=== PATIENT | female | born 1960 | race Caucasian/White ===

== ENCOUNTER 2018-07-04 22:59 | Observation (INO) | payer OTHER ==
[2018-07-04 23:36] LABS: Absolute Lymphocytes (CBC) 2.4 K/uL (0.7-4.9); Absolute Monocytes 0.6 K/uL (0.1-1.3); Absolute Neutrophil 10.8 K/uL (1.8-8.0); Basophils % 0.3 % (0-1.3); Eosinophils % 0.6 % (0-4.4); Hematocrit 37.2 % (36.0-45.0); Lymphocytes % 16.9 % (15.3-44.8); MPV 8.3 fL (7.6-11.3); Monocytes % 4.6 % (3.3-12.3); RBC Red Blood Cell Count 4.21 M/uL (3.86-4.86)
[2018-07-04 23:38] LABS: Protime INR 0.94
[2018-07-04] MEDS ORDERED: NA CHLORIDE 0.9% 1,000 ML ONE (23:41)
[2018-07-04] MEDS ORDERED: ONDANSETRON 4 MG/2 ML VIAL ONE (23:41)
[2018-07-04 23:55] LABS: ALT/SGPT 24 U/L (12-78); AST/SGOT 16 U/L (15-37); Albumin 4.1 g/dL (3.4-5.0); Alkaline Phosphatase 79 U/L (45-117); BUN Blood Urea Nitrogen 29 mg/dL (7-18); Bicarbonate 27 mmol/L (21-32); Bilirubin Direct < 0.1 mg/dL (0-0.2); Bilirubin Total 0.2 mg/dL (0.2-1.0); Glucose Level 179 mg/dL (74-106); Lipase 106 U/L (73-393); Magnesium 1.7 mg/dL (1.8-2.4); NT PRO-BNP 229 pg/mL (<125); Potassium 3.6 mmol/L (3.5-5.1); Protein, Total 7.2 g/dL (6.4-8.2); Sodium Level 140 mmol/L (136-145); Troponin (Emerg Dept Use Only) < 0.02 ng/mL (0.0-0.045)
[2018-07-05 00:11] LABS: Urine Blood NEGATIVE (NEG); Urine Glucose TRACE (NEG); Urine Protein 1+ (NEG); Urine Specific Gravity 1.015 (1.005-1.030)
[2018-07-05] MEDS ORDERED: ONDANSETRON 4 MG/2 ML VIAL ONE (00:43)
[2018-07-05] MEDS ORDERED: MORPHINE 4 MG/ML SYR ONE (00:43)
[2018-07-05] MEDS ORDERED: CEFTRIAXONE/SWI 1gm 1 GM/10 ML SYR ONE (00:43)
[2018-07-05] MEDS ORDERED: MAGNESIUM SULFATE 1 gm IVPB 1 GM/100 ML BAG IV ONE (01:08)
[2018-07-05] MEDS ORDERED: Levofloxacin500mg IV 500 MG/100 ML BAG IV ONE (01:22)
--- NOTE | 2018-07-05 02:22 | ER ---
Nurse's Notes [facility] Name: Jaimie Amanda Age: 57 yrs Sex: Female : 1960 Arrival Date: 07/04/2018 Time: 23:08 Bed 6 Private MD: Diagnosis: Abdominal tenderness;Acute tubulo-interstitial nephritis-pyelonepritis, multifocal;Hypomagnesemia;Elevated white blood cell count Presentation: 07/04 23:00 Presenting complaint: Patient states: that she has been having lower pelvic pain that fc started approx 2 months ago. Today the pain got worse and then she started to have nausea and vomiting. Also having pain with urination, is light headed and dizzy. Transition of care: patient was not received from another setting of care. Onset of symptoms was April 2018. Risk Assessment: Do you want to hurt yourself or someone else? Patient reports no desire to harm self or others. Initial Sepsis Screen: Does the patient meet any 2 criteria? RR > 20 per min. Yes Does the patient have a suspected source of infection? No. Patient's initial sepsis screen is negative. Care prior to arrival: Medication(s) given: Phenergan, 12.5 mg, Glucose check: 164. 23:00 Method Of Arrival: EMS: [facility] 23:00 Acuity: ZHEN 3 fc Historical: - Allergies: 23:14 Nitroglycerin; fc - Home Meds: 23:34 trazodone 100 mg Oral tab 1 tab nightly [Active]; oxcarbazepine 600 mg oral tab 1 am fc and 2 pm [Active]; metformin 500 mg Oral tab 1 tab 2 times per day [Active]; naltrexone 50 mg oral tab 1 tab once daily [Active]; losartan-hydrochlorothiazide 100-25 mg oral tab 1 tab once daily [Active]; paroxetine HCl 40 mg Oral tab 1 tab once daily [Active]; oxybutynin chloride 5 mg Oral tab 1 tab 2 times per day [Active]; omeprazole 40 mg Oral cpDR 1 cap once daily [Active]; Linzess 290 mcg oral cap 1 cap once daily [Active]; levothyroxine 137 mcg tab 1 tab once daily [Active]; liothyronine 5 mcg Oral tab 1 tab once daily [Active]; hydroxyzine HCl 50 mg Oral tab 1 tab bid prn [Active]; - PMHx: 23:14 Depression; Anxiety; Hypothyroidism; Hypertension; fc 23:35 ETOH Abuse; Seizures; Diabetes - NIDDM; fc - PSHx: 23:14 Thyroidectomy; Hernia repair; breast implants; fc - Immunization history:: Last tetanus immunization: up to date. - Social history:: Smoking status: Patient uses tobacco products, smokes one pack cigarettes per day. Patient/guardian denies using alcohol, street drugs. - Ebola Screening: : Patient negative for fever greater than or equal to 101.5 degrees Fahrenheit, and additional compatible Ebola Virus Disease symptoms Patient denies exposure to infectious person Patient denies travel to an Ebola-affected area in the 21 days before illness onset. Screenin:00 Abuse screen: Denies threats or abuse. Nutritional screening: No deficits noted. fc Tuberculosis screening: No symptoms or risk factors identified. Fall Risk Fall in past 12 months (25 points). Secondary diagnosis (15 points) impaired mobility, IV access (20 points). Ambulatory Aid- Crutches/Cane/Walker (15 pts). Gait- Weak (10 pts.). Mental Status- Overestimates/Forgets Limitations (15 pts.). Total Rubio Fall Scale indicates High Risk Score (45 or more points). Fall prevention measures have been instituted. Side Rails Up X 2 Placed Close to Nursing Station Frequent Obs/Assessments Occuring As available patient and family educated on Fall Prevention Program and Strategies. Assessment: 23:41 General: Appears in no apparent distress. uncomfortable, Behavior is cooperative, mg2 restless. Pain: Complains of pain in abdomen Pain does not radiate. Pain currently is 6 out of 10 on a pain scale. Quality of pain is described as aching, Pain began gradually, 2-3 days ago. Is intermittent. Neuro: Level of Consciousness is awake, alert, obeys commands, Oriented to person, place, time, situation. Cardiovascular: Capillary refill < 3 seconds Patient's skin is warm and dry. Respiratory: Airway is patent Respiratory effort is even, unlabored, Respiratory pattern is regular, symmetrical. GI: Abdomen is round non-distended, Reports lower abdominal pain, nausea. : Urine is see urine dip Reports pain in bilateral pelvic area. EENT: No signs and/or symptoms were reported regarding the EENT system. Derm: Skin is intact, is healthy with good turgor, Skin is pink, warm \T\ dry. normal. Musculoskeletal: Circulation, motion, and sensation intact. Capillary refill < 3 seconds. 07/05 01:26 Reassessment: patient sent to ct scan via wheelchair. mg2 04:05 Reassessment: Patient appears in no apparent distress at this time. Patient is alert, rr5 oriented x 3, equal unlabored respirations, skin warm/dry/pink. transferred to medical surgical floor, awake conscious and coherent not in distress. no complaints made. Vital Signs: 07/04 23:00 BP 164 / 89; Pulse 82; Resp 22; Temp 98.3(O); Pulse Ox 98% on R/A; Weight 77.11 kg (R); fc Height 5 ft. 7 in. (170.18 cm) (R); Pain 8/10; 07/05 01:05 BP 182 / 87; Pulse 80; Resp 18; Pulse Ox 100% on R/A; Pain 2/10; mg2 03:30 BP 166 / 70; Pulse 80; Resp 18; Pulse Ox 100% on R/A; mg2 04:00 BP 161 / 66; Pulse 85; Resp 17; Pulse Ox 99% ; rr5 07/04 23:00 Body Mass Index 26.63 (77.11 kg, 170.18 cm) fc ED Course: 07/04 23:00 Arm band placed on Patient placed in an exam room, on a stretcher. fc 23:00 Patient has correct armband on for positive identification. Bed in low position. Call fc light in reach. Side rails up X2. Pulse ox on. NIBP on. 23:00 Maintain EMS IV. Dressing intact. Good blood return noted. Site clean \T\ dry. Gauge \T\ fc site: 20 gauge to right a/c. 23:08 Patient arrived in ED. fc 23:10 Diego Ramirez MD is Attending Physician. hannah 23:11 Triage completed. fc 23:34 EKG done, by ED staff, reviewed by Diego Ramirez MD. ag4 23:37 Hermann Andrade, CATY is Primary Nurse. mg2 23:43 No provider procedures requiring assistance completed. mg2 07/05 00:06 X-ray completed. Portable x-ray completed in exam room. Patient tolerated procedure kw well. 00:10 XRAY Chest (1 view) In Process Unspecified. EDMS 01:11 Radiology exam delayed due to Patient has not finished oral contrast due to nausea. Dr. jonh Ramirez has asked me to proceed with the exam. 01:50 CT Abd/Pelvis - W/Contrast In Process Unspecified. EDMS 02:20 Joseph Gustafson MD is Hospitalizing Provider. hannah 03:29 Patient admitted, IV remains in place. mg2 Administered Medications: 07/04 23:37 Drug: NS 0.9% 1000 ml Route: IV; Rate: 1 bolus; Site: right antecubital; mg2 07/05 01:24 Follow up: Response: No adverse reaction; Marked relief of symptoms; IV Status: mg2 Completed infusion 07/04 23:40 Drug: Zofran 4 mg Route: IVP; Site: right antecubital; mg2 07/05 01:24 Follow up: Response: No adverse reaction; Marked relief of symptoms mg2 00:37 Drug: morphine 4 mg Route: IVP; Site: right antecubital; mg2 01:25 Follow up: Response: No adverse reaction; Marked relief of symptoms mg2 03:27 Follow up: Response: No adverse reaction; Marked relief of symptoms mg2 00:38 Drug: Rocephin - (cefTRIAXone) 1 grams Route: IVPB; Infused Over: 30 mins; Site: right mg2 antecubital; 01:25 Follow up: Response: No adverse reaction; IV Status: Completed infusion mg2 03:27 Follow up: Response: No adverse reaction; IV Status: Completed infusion mg2 00:38 Drug: Zofran 4 mg Route: IVP; Site: right antecubital; mg2 01:25 Follow up: Response: No adverse reaction; Marked relief of symptoms mg2 03:27 Follow up: Response: No adverse reaction; Marked relief of symptoms mg2 01:04 Drug: Magnesium Sulfate 1 grams Route: IVPB; Infused Over: 1 hrs; Site: right mg2 antecubital; 03:26 Follow up: Response: No adverse reaction; IV Status: Completed infusion mg2 01:22 Drug: levofloxacin 500 mg Volume: 100 ml; Route: IVPB; Infused Over: 60 mins; Site: mg2 right antecubital; 03:26 Follow up: Response: No adverse reaction; IV Status: Completed infusion mg2 Outcome: 02:21 Decision to Hospitalize by Provider. hannah 03:30 Admitted to Med/surg family with patient, via wheelchair, room 210, with chart, Report mg2 called to CATY Tellez 03:30 Condition: stable 03:30 Instructed on the need for admit, Demonstrated understanding of instructions. 04:09 Patient left the ED. rr5 Signatures: Dispatcher [employer] EDDiego Angela MD MD cha Chretien, Felicia, RN RN fc Blessing Kang Kimberly kw1 Hermann Andrade RN RN mg2 Ez Mcnamara RN RN rr5 Yony Grimes 4
--- NOTE | 2018-07-05 02:22 | EDPHYS ---
Physician Documentation [facility] Name: Jaimie Amanda Age: 57 yrs Sex: Female : 1960 Arrival Date: 07/04/2018 Time: 23:08 Bed 6 Private MD: ED Physician Diego Ramirez HPI: 07/04 23:13 This 57 yrs old Female presents to ER via EMS with complaints of Pelvic Pain, hannah Nausea/Vomiting. 23:13 The patient presents to the emergency department with nausea, vomiting. hannah Historical: - Allergies: 23:14 Nitroglycerin; fc - Home Meds: 23:34 trazodone 100 mg Oral tab 1 tab nightly [Active]; oxcarbazepine 600 mg oral tab 1 am fc and 2 pm [Active]; metformin 500 mg Oral tab 1 tab 2 times per day [Active]; naltrexone 50 mg oral tab 1 tab once daily [Active]; losartan-hydrochlorothiazide 100-25 mg oral tab 1 tab once daily [Active]; paroxetine HCl 40 mg Oral tab 1 tab once daily [Active]; oxybutynin chloride 5 mg Oral tab 1 tab 2 times per day [Active]; omeprazole 40 mg Oral cpDR 1 cap once daily [Active]; Linzess 290 mcg oral cap 1 cap once daily [Active]; levothyroxine 137 mcg tab 1 tab once daily [Active]; liothyronine 5 mcg Oral tab 1 tab once daily [Active]; hydroxyzine HCl 50 mg Oral tab 1 tab bid prn [Active]; - PMHx: 23:14 Depression; Anxiety; Hypothyroidism; Hypertension; fc 23:35 ETOH Abuse; Seizures; Diabetes - NIDDM; fc - PSHx: 23:14 Thyroidectomy; Hernia repair; breast implants; fc - Immunization history:: Last tetanus immunization: up to date. - Social history:: Smoking status: Patient uses tobacco products, smokes one pack cigarettes per day. Patient/guardian denies using alcohol, street drugs. - Ebola Screening: : Patient negative for fever greater than or equal to 101.5 degrees Fahrenheit, and additional compatible Ebola Virus Disease symptoms Patient denies exposure to infectious person Patient denies travel to an Ebola-affected area in the 21 days before illness onset. ROS: 23:46 Constitutional: Negative for fever, chills, and weight loss, Eyes: Negative for injury, hannah pain, redness, and discharge, ENT: Negative for injury, pain, and discharge, Neck: Negative for injury, pain, and swelling, Cardiovascular: Negative for chest pain, palpitations, and edema, Respiratory: Negative for shortness of breath, cough, wheezing, and pleuritic chest pain, Back: Negative for injury and pain, : Negative for injury, bleeding, discharge, and swelling, MS/Extremity: Negative for injury and deformity, Skin: Negative for injury, rash, and discoloration, Neuro: Negative for headache, weakness, numbness, tingling, and seizure, Psych: Negative for depression, anxiety, suicide ideation, homicidal ideation, and hallucinations, Allergy/Immunology: Negative for hives, rash, and allergies, Endocrine: Negative for neck swelling, polydipsia, polyuria, polyphagia, and marked weight changes, Hematologic/Lymphatic: Negative for swollen nodes, abnormal bleeding, and unusual bruising. 23:46 Abdomen/GI: Positive for abdominal pain, nausea and vomiting, nausea, vomiting, abdominal cramps, of the right lower quadrant and left lower quadrant. Exam: 23:46 Constitutional: This is a well developed, well nourished patient who is awake, alert, hannah and in no acute distress. Head/Face: Normocephalic, atraumatic. Eyes: Pupils equal round and reactive to light, extra-ocular motions intact. Lids and lashes normal. Conjunctiva and sclera are non-icteric and not injected. Cornea within normal limits. Periorbital areas with no swelling, redness, or edema. ENT: Nares patent. No nasal discharge, no septal abnormalities noted. Tympanic membranes are normal and external auditory canals are clear. Oropharynx with no redness, swelling, or masses, exudates, or evidence of obstruction, uvula midline. Mucous membranes moist. Neck: Trachea midline, no thyromegaly or masses palpated, and no cervical lymphadenopathy. Supple, full range of motion without nuchal rigidity, or vertebral point tenderness. No Meningismus. Chest/axilla: Normal chest wall appearance and motion. Nontender with no deformity. No lesions are appreciated. Cardiovascular: Regular rate and rhythm with a normal S1 and S2. No gallops, murmurs, or rubs. Normal PMI, no JVD. No pulse deficits. Respiratory: Lungs have equal breath sounds bilaterally, clear to auscultation and percussion. No rales, rhonchi or wheezes noted. No increased work of breathing, no retractions or nasal flaring. Back: No spinal tenderness. No costovertebral tenderness. Full range of motion. Female : Normal external genitalia. Skin: Warm, dry with normal turgor. Normal color with no rashes, no lesions, and no evidence of cellulitis. MS/ Extremity: Pulses equal, no cyanosis. Neurovascular intact. Full, normal range of motion. Neuro: Awake and alert, GCS 15, oriented to person, place, time, and situation. Cranial nerves II-XII grossly intact. Motor strength 5/5 in all extremities. Sensory grossly intact. Cerebellar exam normal. Normal gait. Psych: Awake, alert, with orientation to person, place and time. Behavior, mood, and affect are within normal limits. 23:46 Abdomen/GI: Inspection: abdomen appears normal, Bowel sounds: normal, Palpation: abdomen is soft and non-tender, Liver: no appreciated palpable abnormalities, Hernia: not appreciated. Vital Signs: 23:00 BP 164 / 89; Pulse 82; Resp 22; Temp 98.3(O); Pulse Ox 98% on R/A; Weight 77.11 kg (R); fc Height 5 ft. 7 in. (170.18 cm) (R); Pain 8/10; 07/05 01:05 BP 182 / 87; Pulse 80; Resp 18; Pulse Ox 100% on R/A; Pain 2/10; mg2 03:30 BP 166 / 70; Pulse 80; Resp 18; Pulse Ox 100% on R/A; mg2 04:00 BP 161 / 66; Pulse 85; Resp 17; Pulse Ox 99% ; rr5 07/04 23:00 Body Mass Index 26.63 (77.11 kg, 170.18 cm) fc MDM: 07/04 23:10 Patient medically screened. [facility] 23:48 Data reviewed: vital signs, nurses notes, lab test result(s), EKG, radiologic studies, [facility] CT scan, plain films. 07/04 23:13 Order name: Basic Metabolic Panel; Complete Time: 00:51 [facility] 07/04 23:13 Order name: CBC with Diff; Complete Time: 23:42 [facility] 07/04 23:13 Order name: LFT's; Complete Time: 00:51 [facility] 07/04 23:13 Order name: Magnesium; Complete Time: 00:51 hannah 07/04 23:13 Order name: NT PRO-BNP; Complete Time: 00:51 hannah 07/04 23:13 Order name: PT-INR; Complete Time: 23:42 hannah 07/04 23:13 Order name: Troponin (emerg Dept Use Only); Complete Time: 00:51 hannah 07/04 23:13 Order name: Lipase; Complete Time: 00:51 [facility] 07/04 23:13 Order name: Urine Culture [facility] 07/04 23:40 Order name: Urine Dipstick--Ancillary (enter results); Complete Time: 00:51 ar5 07/04 23:40 Order name: Urine --Ancillary (enter results); Complete Time: 00:51 [facility] 07/05 02:37 Order name: CBC with Automated Diff EDMS 07/05 02:37 Order name: CBC with Automated Diff EDMS 07/05 02:37 Order name: Comprehensive Metabolic Panel [facility] 07/04 23:13 Order name: XRAY Chest (1 view) [facility] 07/04 23:13 Order name: EKG; Complete Time: 23:14 hannah 07/04 23:13 Order name: Cardiac monitoring; Complete Time: 23:35 hannah 07/04 23:13 Order name: EKG - Nurse/Tech; Complete Time: 23:35 hannah 07/04 23:13 Order name: IV Saline Lock; Complete Time: 23:35 hannah 07/04 23:13 Order name: CT Abd/Pelvis - W/Contrast [facility] 07/05 02:37 Order name: CONS Pharmacy Consult [facility] 07/05 02:37 Order name: Regular [facility] 07/05 02:37 Order name: Comprehensive Metabolic Panel [facility] 07/04 23:13 Order name: Labs collected and sent; Complete Time: 23:36 hannah 07/04 23:13 Order name: O2 Per Protocol; Complete Time: 23:36 hannah 07/04 23:13 Order name: O2 Sat Monitoring; Complete Time: 23:36 hannah 07/04 23:13 Order name: Urine Dipstick-Ancillary (obtain specimen); Complete Time: 23:36 hannah Administered Medications: 23:37 Drug: NS 0.9% 1000 ml Route: IV; Rate: 1 bolus; Site: right antecubital; mg2 07/05 01:24 Follow up: Response: No adverse reaction; Marked relief of symptoms; IV Status: mg2 Completed infusion 07/04 23:40 Drug: Zofran 4 mg Route: IVP; Site: right antecubital; mg2 07/05 01:24 Follow up: Response: No adverse reaction; Marked relief of symptoms mg2 00:37 Drug: morphine 4 mg Route: IVP; Site: right antecubital; mg2 01:25 Follow up: Response: No adverse reaction; Marked relief of symptoms mg2 03:27 Follow up: Response: No adverse reaction; Marked relief of symptoms mg2 00:38 Drug: Rocephin - (cefTRIAXone) 1 grams Route: IVPB; Infused Over: 30 mins; Site: right mg2 antecubital; 01:25 Follow up: Response: No adverse reaction; IV Status: Completed infusion mg2 03:27 Follow up: Response: No adverse reaction; IV Status: Completed infusion mg2 00:38 Drug: Zofran 4 mg Route: IVP; Site: right antecubital; mg2 01:25 Follow up: Response: No adverse reaction; Marked relief of symptoms mg2 03:27 Follow up: Response: No adverse reaction; Marked relief of symptoms mg2 01:04 Drug: Magnesium Sulfate 1 grams Route: IVPB; Infused Over: 1 hrs; Site: right mg2 antecubital; 03:26 Follow up: Response: No adverse reaction; IV Status: Completed infusion mg2 01:22 Drug: levofloxacin 500 mg Volume: 100 ml; Route: IVPB; Infused Over: 60 mins; Site: mg2 right antecubital; 03:26 Follow up: Response: No adverse reaction; IV Status: Completed infusion mg2 Disposition: 07/05/18 02:21 Hospitalization ordered by Joseph Gustafson for Inpatient Admission. Preliminary diagnosis are Abdominal tenderness, Acute tubulo-interstitial nephritis - pyelonepritis, multifocal, Hypomagnesemia, Elevated white blood cell count. - Bed requested for Telemetry/MedSurg (Inpatient). - Status is Inpatient Admission. rr5 - Condition is Stable. - Problem is new. - Symptoms have improved. UTI on Admission? Yes Signatures: Dispatcher [employer] EDMS Rosemarie Donaldson RN RN mw Anderson, Corey, MD MD cha Chretien, Felicia, RN RN Hermann Andrade RN RN [facility] Mcnamara, Ez, RN RN rr5 Corrections: (The following items were deleted from the chart) 03:12 02:21 Hospitalization Ordered by Joseph Gustafson MD for Inpatient Admission. Preliminary mw diagnosis is Abdominal tenderness; Acute tubulo-interstitial nephritis - pyelonepritis, multifocal; Hypomagnesemia; Elevated white blood cell count. Bed requested for Telemetry/MedSurg (Inpatient). Status is Inpatient Admission. Condition is Stable. Problem is new. Symptoms have improved. UTI on Admission? Yes. [facility] 04:09 03:12 07/05/2018 02:21 Hospitalization Ordered by Joseph Gustafson MD for Inpatient rr5 Admission. Preliminary diagnosis is Abdominal tenderness; Acute tubulo-interstitial nephritis - pyelonepritis, multifocal; Hypomagnesemia; Elevated white blood cell count. Bed requested for Telemetry/MedSurg (Inpatient). Status is Inpatient Admission. Condition is Stable. Problem is new. Symptoms have improved. UTI on Admission? Yes. mw
[2018-07-05] MEDS ORDERED: ACETAMINOPHEN 500 MG TAB PO PRN (02:34)
[2018-07-05] MEDS: NA CHLORIDE 0.9% 1,000 ML IV SCH ×3 (04:24→22:28)
[2018-07-05] MEDS: MORPHINE 4 MG/ML SYR IV PRN ×4 (05:54→22:28)
[2018-07-05] MEDS ORDERED: CEFTRIAXONE 1 GM/NS 50 ML 1 GM/50 ML BAG IV SCH (06:00)
[2018-07-05] MEDS: ONDANSETRON 4 MG/2 ML VIAL IV PRN ×2 (06:40→21:05)
--- NOTE | 2018-07-05 07:05 | EKG ---
Test Date: 2018-07-04 Test Time: 23:30:08 Transit Planning Manager: [id number] MEASUREMENT RESULTS: Intervals: Rate: 73 TN: 182 QRSD: 90 QT: 420 QTc: 462 [place]: P: 51 TN: 182 QRS: 95 T: 42 INTERPRETIVE STATEMENTS: Normal sinus rhythm Rightward axis Borderline ECG Compared to ECG 11/20/2016 10:06:06 Right-axis deviation now present Electronically Signed On 07-05-18 07:04:33 CDT by [place]
[2018-07-05] MEDS ORDERED: hydrOXYzine HCl 25 MG TAB PO PRN (07:16)
--- NOTE | 2018-07-05 07:43 | P.HP ---
Certification for Inpatient Patient admitted to: Observation With expected LOS: <2 Midnights Patient will require the following post-hospital care: None Practitioner: I am a practitioner with admitting privileges, knowledge of patient current condition, hospital course, and medical plan of care. Services: Services provided to patient in accordance with Admission requirements found in Title 42 Section 412.3 of the Code of Federal Regulations Patient History Date of Service: 07/05/18 Reason for admission: Acute pyelonephritis History of Present Illness: Patient is a 57yo who was admitted to the hospital with left flank tenderness. Patient has been having pain for the last few weeks. Pain has not been getting any better. She also states that her abdomen is distended. Patient came into the ER for further evaluation. In the emergency room she had a CT scan performed. The CT scan revealed multifocal pyelonephritis of the superior pole of the left kidney. Patient be admitted to the hospital for IV antibiotic therapy. Will Consult urology get their opinion as well. At this time because her labs are fairly stable will get with case management and see if her clinical condition mandate say she is an inpatient. I will see her again better over the next 24-48 hr. I do feel she will need more than 2 days to really resolve her significant pyelonephritis. Patient does have pre renal azotemia. She also has a leukocytosis. Will continue to follow her over the next 24 hrs. Allergies nitroglycerin Adverse Reaction (Verified 07/05/18 06:27) severe hypotension Home Medications: Clonidine HCl [Catapres*] 0.2 mg PO BID 07/05/18 Fenofibrate,Micronized [Fenofibrate] 130 mg PO DAILY 07/05/18 Hydroxyzine HCl [Atarax] 10 mg PO BID PRN 07/05/18 Levothyroxine Sodium 137 mcg PO DAILY 07/05/18 Linaclotide [Linzess] 290 mcg PO DAILY 07/05/18 Liothyronine Sodium [Cytomel] 5 mcg PO DAILY 07/05/18 Losartan/Hydrochlorothiazide [Losartan-Hctz 100-25 mg Tab] 1 tab PO DAILY Metformin ER [Glucophage ER] 500 mg PO BID 07/05/18 Naltrexone 50mg 50 mg PO DAILY 07/05/18 OXcarbazepine [Oxcarbazepine] 2 tab PO BEDTIME 07/05/18 OXcarbazepine [Oxcarbazepine] 600 mg PO DAILY 07/05/18 Omeprazole [Prilosec] 40 mg PO DAILY 07/05/18 Ondansetron [Zofran] 4 mg PO TID 07/05/18 Oxybutynin Chloride [Ditropan] 5 mg PO BID 07/05/18 PARoxetine HCl [Paroxetine HCl] 40 mg PO DAILY 07/05/18 Trazodone HCl 100 mg PO BEDTIME 07/05/18 risperiDONE [Risperdal 1 mg tab] 1 mg PO BID 07/05/18 - Past Medical/Surgical History Has patient received pneumonia vaccine in the past: No Diabetic: No -: Hepatitis -: Anxiety -: HTN -: No Thyroid -: Alcoholic induce seizures -: Thyroid removed -: Plastic surgery breast -: hernia repair - Family History Mother Medical History: Hypertension, Diabetes, Cancer Notes: Thyroid, Knee replacement Father Medical History: Heart disease, Hypertension, Diabetes - Social History Smoking Status: Heavy Tobacco smoker (>10 cigarettes/day) Alcohol use: No CD- Drugs: No Caffeine use: Yes Place of Residence: Home Review of Systems 10-point ROS is otherwise unremarkable Physical Examination - Vital Signs Temperature: 98.2 F Blood Pressure: 180/81 Pulse: 69 Respirations: 18 Pulse Ox (%): 95 - Physical Exam General: Alert, In no apparent distress, Oriented x3 HEENT: Atraumatic, PERRLA, Mucous membr. moist/pink, EOMI, Sclerae nonicteric Neck: Supple, 2+ carotid pulse no bruit, No LAD, Without JVD or thyroid abnormality Respiratory: Clear to auscultation bilaterally, Normal air movement Cardiovascular: Regular rate/rhythm, Normal S1 S2, No murmurs Gastrointestinal: Normal bowel sounds, Soft and benign, Non-distended, No tenderness Musculoskeletal: No clubbing, No swelling, No tenderness Integumentary: No rashes Neurological: Normal gait, Normal speech, Normal strength at 5/5 x4 extr, Normal tone, Sensation intact, Cranial nerves 3-12 intact, Normal affect Lymphatics: No axilla or inguinal lymphadenopathy - Studies Laboratory Data (last 24 hrs) 07/04/18 23:20: PT 11.1, INR 0.94 07/04/18 23:20: WBC 14.0 H, Hgb 12.5, Hct 37.2, Plt Count 362 07/04/18 23:20: Sodium 140, Potassium 3.6, BUN 29 H, Creatinine 0.88, Glucose 179 H, Magnesium 1.7 L, Total Bilirubin 0.2, AST 16, ALT 24, Alkaline Phosphatase 79, Lipase 106 Assessment & Plan - Problems (Diagnosis) (1) Pyelonephritis, acute Current Visit: Yes Status: Acute (2) Leukocytosis Current Visit: Yes Status: Acute (3) Prerenal azotemia Current Visit: Yes Status: Acute (4) Chest pain Onset Date: 11/21/16 Current Visit: No Status: Acute Qualifiers: Ischemic chest pain type: unspecified angina pectoris type (5) Anxiety Onset Date: 11/21/16 Current Visit: No Status: Chronic (6) Depressed affect Onset Date: 11/21/16 Current Visit: No Status: Chronic (7) Hypertension Onset Date: 11/21/16 Current Visit: No Status: Chronic Qualifiers: Hypertension type: essential hypertension Qualified Code(s): I10 - Essential (primary) hypertension - Plan Plan: 1. IV hydration 2. IV antibiotics 3. Pain control 4. Urology consultation 5. Await microbiology results 6. Monitor labs closely 7. GI and DVT prophylaxis Discharge Plan: Home Plan to discharge in: Greater than 2 days - Advance Directives Does patient have a Living Will: No Does patient have a Durable POA for Healthcare: No - Code Status/Comfort Care Code Status Assessed: Yes Code Status: Full Code Critical Care: No Time Spent Managing PTS Care (In Minutes): 45
[2018-07-05] MEDS: cloNIDine HCl 0.1 MG TAB PO SCH ×2 (08:01→21:01)
--- NOTE | 2018-07-05 08:16 | RAD REPORT ---
EXAM DESCRIPTION: RAD - Chest Single View - 07/05/2018 12:09 am CLINICAL HISTORY: Cough;Abdominal distention Chest pain. COMPARISON: Chest Single View dated 11/20/2016 FINDINGS: Portable technique limits examination quality. The lungs are grossly clear. The heart is normal in size. No displaced fractures. IMPRESSION: No acute intrathoracic process suspected.
[2018-07-05] MEDS: PARoxetine HCl 10 MG TAB PO SCH (08:53)
[2018-07-05] MEDS: OXYBUTYNIN CHLORIDE 5 MG TAB PO SCH ×2 (08:53→21:01)
[2018-07-05] MEDS: LOSARTAN POTASSIUM 50 MG TABLET PO SCH (08:53)
[2018-07-05] MEDS: RISPERIDONE 1 MG TABLET PO SCH ×2 (08:53→21:01)
[2018-07-05] MEDS ORDERED: ONDANSETRON 4 MG (ODT) TAB PO SCH (09:00)
[2018-07-05] MEDS ORDERED: HOME MED 1 EA UNK (Oxcarbazepine [Oxcarbazepine] 600 MG) PO SCH (09:00)
[2018-07-05] MEDS ORDERED: METFORMIN ER 500 MG TAB PO SCH (09:00)
[2018-07-05] MEDS: FENOFIBRATE MICRONIZED 130 MG PO SCH (09:00)
--- NOTE | 2018-07-05 10:17 | RAD REPORT ---
EXAM DESCRIPTION: Abdomen and Pelvis With Intravenous Contrast CLINICAL HISTORY: The patient is 57 years old and is Female; ABD PAIN TECHNIQUE: Axial computed tomography images of the abdomen and pelvis with intravenous contrast. S agittal and coronal reformatted images were created and reviewed. This CT exam was performed using one or more of the following dose reduction techniques: automated exposure control, adjustment of t he mA and/or kV according to patient size, and/or use of iterative reconstruction technique. COMPARISON: CT of the abdomen and pelvis June 30, 2018. FINDINGS: LUNG BASES: Minimal dependent densities in the lung bases are present. MEDIASTINUM: A small hiatal hernia is present. ABDOMEN: LIVER: 1 cm low attenuating lesion within the left hepatic lobe is present and suggestive of a c yst. GALLBLADDER AND BILE DUCTS: No calcified stones. No ductal dilation. PANCREAS: No ductal dilation. No mass. SPLEEN: Unremarkable. ADRENALS: Unremarkable. No mass. KIDNEYS AND URETERS: Few subtle areas of wedge-shaped low-attenuation within the upper pole the left kidney are present. The right kidney enhances normally. No hydronephrosis. STOMACH AND BOWEL: Oral contrast distends the stomach. Oral contrast is noted throughout majorit y the small bowel which is normal in caliber. A moderate amount of stool is present throughout the co nixon. There is no mucosal thickening or evidence of bowel obstruction. PELVIS: APPENDIX: The appendix is normal in caliber without surrounding inflammation. BLADDER: Unremarkable. No mass. REPRODUCTIVE: Unremarkable as visualized. ABDOMEN and PELVIS: INTRAPERITONEAL SPACE: Unremarkable. No free air. No significant fluid collection. BONES/JOINTS: No acute fracture. SOFT TISSUES: The soft tissues are normal. VASCULATURE: Unremarkable. No abdominal aortic aneurysm. LYMPH NODES: Unremarkable. No enlarged lymph nodes. IMPRESSION: Findings suggestive of multifocal pyelonephritis involving the upper pole the left kidne y. Given the appearance, recommend follow-up to resolution to exclude underlying pathologic process. Electronically signed by: Nuvia Bloom MD 07/05/2018 1:56 AM CDT Due to temporary technical issues with the PACS/Fluency reporting system, reports are being signed by the in house radiologist as a courtesy to ensure prompt reporting. The interpreting radiologist is f ully responsible for the content of the report.
[2018-07-05] MEDS: hydroCHLOROthiazide 25 MG TAB PO SCH (11:06)
[2018-07-05] MEDS ORDERED: ONDANSETRON 4 MG (ODT) TAB PO PRN (14:00)
--- NOTE | 2018-07-05 16:02 | P.PN ---
Subjective Date of Service: 07/05/18 Primary Care Provider: none Chief Complaint: Acute pyelonephritis Subjective: Other (Abdominal pain noted) Physical Examination - Vital Signs Temperature: 98.7 F Blood Pressure: 113/55 Pulse: 58 Respirations: 18 Pulse Ox (%): 92 - Physical Exam General: Alert, In no apparent distress, Oriented x3, Cooperative HEENT: Atraumatic Neck: Supple Respiratory: Clear to auscultation bilaterally, Normal air movement Cardiovascular: Normal pulses, Regular rate/rhythm Gastrointestinal: Normal bowel sounds, Soft and benign, Non-distended, No masses , No rebound, No guarding, Tenderness (Mild left flank pain) Musculoskeletal: No erythema, No tenderness, No warmth Integumentary: No tenderness/swelling, No erythema, No warmth, No cyanosis Neurological: Normal speech, Normal strength at 5/5 x4 extr, Normal tone - Studies Laboratory Data (last 24 hrs) 07/04/18 23:20: PT 11.1, INR 0.94 07/04/18 23:20: WBC 14.0 H, Hgb 12.5, Hct 37.2, Plt Count 362 07/04/18 23:20: Sodium 140, Potassium 3.6, BUN 29 H, Creatinine 0.88, Glucose 179 H, Magnesium 1.7 L, Total Bilirubin 0.2, AST 16, ALT 24, Alkaline Phosphatase 79, Lipase 106 Medications List Reviewed: Yes Assessment & Plan Discharge Plan: Home Plan to discharge in: 48 Hours Physician Review Additional Text: Impression: Multifocal left pyelonephritis with dehydration Hypertension Depression with anxiety Hypothyroidism Plan: Multifocal left pyelonephritis with dehydration: Continue IV antibiotic therapy. Will provide medication for pain. Blood and urine cultures obtained. Will provide DVT prophylaxis. Anticipate discharge in the next 24-48 hr with improvement. Urology consulted. Will discuss with urology later. Hypertension: Restart home medication. Will monitor and adjust appropriately Depression with anxiety: Restart home medication. Hypothyroidism: Restart home medication. Time Spent Managing Pts Care (In Minutes): 55
[2018-07-05] MEDS: ENOXAPARIN 40 MG/0.4 ML SQ SCH (17:01)
[2018-07-05] MEDS: METFORMIN ER 500 MG TAB PO SCH (17:01)
--- NOTE | 2018-07-05 19:22 | CON ---
History Of Present Illness: This is a pleasant 57-year-old female. She has been sick for about a few months now and multiple diagnois of UTI and treatment with antibiotics, but apparently is not responding well, now she comes in with a multifocal left upper pole pyelonephritis. She has some leukocytosis, prerenal azotemia, history of chest pain, anxiety, depression, and hypertension. For the last couple of years, she has been having UTIs. Her CT scan did not show any obstruction or any stones. It is a garden-variety pyelonephritis that will need to be treated for 14-21 days of IV antibiotics. Also suspect she may have a resistant bug, possible need meropenem. Allergies: TO NITROGLYCERIN CAUSES SEVERE HYPOTENSION MORE LIKE A SIDE EFFECT. Home Medications: Clonidine, fenofibrate, Atarax, levothyroxine, Linzess, losartan, hydrochlorothiazide, metformin, naltrexone, __, Zofran, oxybutynin 5 mg b.i.d., paroxetine 40 mg p.o. daily, trazodone 100 mg p.o. at bedtime, risperidone 1 mg p.o. b.i.d. Past Medical History And Surgical History: Hepatitis, anxiety, hypertension, alcoholic-induced seizures, thyroidectomy, _surgery, hernia repair. Family History: Hypertension, diabetes, cancer, thyroid knee replacement. Father has heart disease, hypertension, diabetes. Social History: Heavy smoker, greater than 10 cigarettes per day. Alcohol use , none. Drug use and caffeine use, yes. Resides at home. Review of Systems: Ten point review of system as mentioned above. Physical Examination: Vital Signs: Temperature 98.7, pulse 58, respirations 18, blood pressure , sats 92%. Pain scale 6/10. HEENT: Atraumatic and normocephalic. Neck: Supple. Respiratory: Clear bilaterally. Cardiovascular: S1 and S2. Gastrointestinal: Soft, no bowel sounds. Skin: No rashes. Neurologic: Alert and oriented x3. Sensory and motor function roughly intact. Laboratory Studies: Reviewed. White count 14.0, H and H 12 and 37, platelets 362. Chem-7; sodium 140, potassium 3.6, BUN 29, creatinine 0.88, glucose 179. Assessment: Left pyelonephritis, multifocal left upper pole. The patient had been struggling with urinary tract infections over the last 2 to 4 months, now with leukocytosis and some prerenal azotemia, continue IV antibiotics. She is currently on Rocephin. Awaiting cultures. I would not be surprised if this is an extended-spectrum beta-lactamases or something resistant like that. Continue to observe the patient, watch the culture and sensitivity. Thank you very much. ÓSCAR Voice ID: [id number] Report ID: [id number] ROSANGELA
[2018-07-05] MEDS: TRAZODONE 50 MG TABLET PO SCH (21:00)
[2018-07-06] MEDS: CEFTRIAXONE/SWI 1gm 1 GM/10 ML SYR IV SCH (05:14)
[2018-07-06] MEDS: LEVOTHYROXINE SOD 0.112 MG TAB PO SCH (05:14)
[2018-07-06] MEDS: PANTOPRAZOLE 40MG TABLET PO SCH (05:15)
[2018-07-06] MEDS: LIOTHYRONINE SOD 5 MCG TAB PO SCH (05:15)
[2018-07-06] MEDS: LEVOTHYROXINE SOD 0.025 MG TAB PO SCH (05:15)
[2018-07-06] MEDS: MORPHINE 4 MG/ML SYR IV PRN ×3 (05:50→20:39)
[2018-07-06 05:52] LABS: Absolute Lymphocytes (CBC) 3.2 K/uL (0.7-4.9); Absolute Monocytes 0.5 K/uL (0.1-1.3); Absolute Neutrophil 3.3 K/uL (1.8-8.0); Basophils % 0.2 % (0-1.3); Eosinophils % 1.7 % (0-4.4); Hematocrit 33.6 % (36.0-45.0); Lymphocytes % 44.8 % (15.3-44.8); MPV 7.5 fL (7.6-11.3); Monocytes % 7.1 % (3.3-12.3); RBC Red Blood Cell Count 3.78 M/uL (3.86-4.86)
[2018-07-06 06:12] LABS: ALT/SGPT 21 U/L (12-78); AST/SGOT 11 U/L (15-37); Albumin 3.3 g/dL (3.4-5.0); Alkaline Phosphatase 56 U/L (45-117); BUN Blood Urea Nitrogen 18 mg/dL (7-18); Bicarbonate 28 mmol/L (21-32); Bilirubin Total 0.2 mg/dL (0.2-1.0); Glucose Level 101 mg/dL (74-106); Potassium 4.2 mmol/L (3.5-5.1); Protein, Total 6.1 g/dL (6.4-8.2); Sodium Level 142 mmol/L (136-145)
[2018-07-06 06:56] LABS: Platelet Estimate ADEQ
[2018-07-06 06:57] LABS: Blood Morphology Comment NOT SEEN (NOT SEEN)
[2018-07-06] MEDS: FENOFIBRATE MICRONIZED 130 MG PO SCH (08:19)
[2018-07-06] MEDS: ONDANSETRON 4 MG/2 ML VIAL IV PRN (08:30)
[2018-07-06] MEDS: cloNIDine HCl 0.1 MG TAB PO SCH ×2 (08:32→20:32)
[2018-07-06] MEDS: LOSARTAN POTASSIUM 50 MG TABLET PO SCH (08:32)
[2018-07-06] MEDS: NA CHLORIDE 0.9% 1,000 ML IV SCH (08:32)
[2018-07-06] MEDS: METFORMIN ER 500 MG TAB PO SCH ×2 (08:32→16:48)
[2018-07-06] MEDS: OXYBUTYNIN CHLORIDE 5 MG TAB PO SCH ×2 (08:32→20:33)
[2018-07-06] MEDS: hydroCHLOROthiazide 25 MG TAB PO SCH (08:33)
[2018-07-06] MEDS: OXCARBAZEPINE 600 MG PO SCH (08:34)
[2018-07-06] MEDS: RISPERIDONE 1 MG TABLET PO SCH ×2 (08:34→20:33)
[2018-07-06] MEDS: PARoxetine HCl 10 MG TAB PO SCH (08:34)
[2018-07-06] MEDS: TRAMADOL HCL 50 MG TAB PO PRN ×2 (10:12→16:48)
--- NOTE | 2018-07-06 12:24 | P.PN ---
Subjective Date of Service: 07/06/18 Primary Care Provider: none Chief Complaint: Acute pyelonephritis Subjective: Improving Physical Examination - Vital Signs Temperature: 99.1 F Blood Pressure: 186/74 Pulse: 50 Respirations: 16 Pulse Ox (%): 96 - Physical Exam General: Alert, In no apparent distress, Oriented x3, Cooperative HEENT: Atraumatic Neck: Supple Respiratory: Clear to auscultation bilaterally, Normal air movement Cardiovascular: Normal pulses, Regular rate/rhythm Gastrointestinal: Normal bowel sounds, Soft and benign, Non-distended, Tenderness (Mild pain to the left flank) - Studies Medications List Reviewed: Yes Assessment & Plan Discharge Plan: Home Plan to discharge in: 24 Hours Physician Review Additional Text: Impression: Multifocal left pyelonephritis with dehydration Hypertension Depression with anxiety Hypothyroidism Plan: Multifocal left pyelonephritis with dehydration: Continue IV antibiotic therapy. Await urine culture results. This will likely finalized tomorrow. Encourage ambulation. Will discuss with urology. Likely discharge in the next 24 hr. Hypertension: Continue with home medication. Will monitor and adjust appropriately Depression with anxiety: Continue with home medication. Hypothyroidism: Continue home medication. Time Spent Managing Pts Care (In Minutes): 55
[2018-07-06] MEDS: NACHLORIDE 0.45% 1,000 ML IV SCH (13:21)
[2018-07-06] MEDS: ENOXAPARIN 40 MG/0.4 ML SQ SCH (16:48)
--- NOTE | 2018-07-06 18:37 | PN ---
Subjective: Ms. Amanda states she is feeling better. Objective: She has low-grade temperature 99.1, pulse rate 50, respirations 16, BP 186/74, sats 96%. Cultures are still pending. Plan should be finalized tomorrow. Check culture, it is important to know the sensitivity of this drug since she may be a resistant drug possible ESBL. So we are watching this closely. Assessment: Acute pyelonephritis. Plan: Antibiotics 14-21 days. JERRY/TRAVIS Voice ID: [id number] Report ID: [id number] MTDD
[2018-07-06] MEDS: TRAZODONE 50 MG TABLET PO SCH (20:32)
[2018-07-07] MEDS: NACHLORIDE 0.45% 1,000 ML IV SCH (01:06)
[2018-07-07] MEDS: CEFTRIAXONE/SWI 1gm 1 GM/10 ML SYR IV SCH (05:00)
[2018-07-07] MEDS: PANTOPRAZOLE 40MG TABLET PO SCH (05:38)
[2018-07-07] MEDS: LIOTHYRONINE SOD 5 MCG TAB PO SCH (05:38)
[2018-07-07] MEDS: LEVOTHYROXINE SOD 0.112 MG TAB PO SCH (05:38)
[2018-07-07] MEDS: LEVOTHYROXINE SOD 0.025 MG TAB PO SCH (05:38)
[2018-07-07 06:08] LABS: Absolute Lymphocytes (CBC) 3.4 K/uL (0.7-4.9); Absolute Monocytes 0.6 K/uL (0.1-1.3); Absolute Neutrophil 4.1 K/uL (1.8-8.0); Basophils % 0.2 % (0-1.3); Eosinophils % 1.4 % (0-4.4); Lymphocytes % 41.3 % (15.3-44.8); MPV 7.6 fL (7.6-11.3); Monocytes % 6.9 % (3.3-12.3); RBC Red Blood Cell Count 3.97 M/uL (3.86-4.86)
[2018-07-07 06:20] LABS: BUN Blood Urea Nitrogen 16 mg/dL (7-18); Bicarbonate 29 mmol/L (21-32); Glucose Level 102 mg/dL (74-106); Magnesium 1.8 mg/dL (1.8-2.4); Potassium 3.9 mmol/L (3.5-5.1); Sodium Level 137 mmol/L (136-145)
[2018-07-07] MEDS: FENOFIBRATE MICRONIZED 130 MG PO SCH (08:21)
[2018-07-07] MEDS: OXCARBAZEPINE 600 MG PO SCH (08:27)
[2018-07-07] MEDS: PARoxetine HCl 10 MG TAB PO SCH (08:28)
[2018-07-07] MEDS: hydroCHLOROthiazide 25 MG TAB PO SCH (08:28)
[2018-07-07] MEDS: OXYBUTYNIN CHLORIDE 5 MG TAB PO SCH (08:29)
[2018-07-07] MEDS: METFORMIN ER 500 MG TAB PO SCH (08:29)
[2018-07-07] MEDS: cloNIDine HCl 0.1 MG TAB PO SCH (08:29)
[2018-07-07] MEDS: LOSARTAN POTASSIUM 50 MG TABLET PO SCH (08:29)
[2018-07-07] MEDS: RISPERIDONE 1 MG TABLET PO SCH (08:30)
[2018-07-07] MEDS: TRAMADOL HCL 50 MG TAB PO PRN (08:35)
--- NOTE | 2018-07-07 09:59 | P.DS ---
Admission Date: 07/05/18 Discharge Date: 07/07/18 Primary Care Provider: none Disposition: ROUTINE DISCHARGE Discharge Condition: GOOD Reason for Admission: Acute pyelonephritis Consultations: Urology-Dr. Fernandes Procedures: CT scan: IMPRESSION: Findings suggestive of multifocal pyelonephritis involving the upper pole the left kidney. Given the appearance, recommend follow-up to resolution to exclude underlying pathologic process Medical problem list: Multifocal left pyelonephritis with dehydration Hypertension Depression with anxiety Hypothyroidism Diabetes mellitus type 2 Hyperlipidemia Brief History of Present Illness: 57-year-old female presented to emergency room with left flank pain. Patient found to have left multifocal pyelonephritis. Patient was admitted for treatment. Hospital Course: Patient presented with multifocal left pyelonephritis. Patient seen and evaluated by urology. Patient was treated with IV antibiotic therapy. Patient improved. At discharge she is without any significant abdominal pain, nausea and vomiting. UTI prevention addressed in detail. Urine culture shows normal marisol. At discharge she will continue with antibiotic-Bactrim DS 1 pill twice daily for 10 days for broad-spectrum control. Recommend to follow up with urology in 1-2 weeks to follow up this hospitalization and continue her care. Urology or her PCP will need to follow up on final results of urine culture within the next 24-48 hr. Patient with hypertension. This has remained stable. At discharge she will continue with her medication-clonidine 0.2 mg 1 pill twice daily, losartan 100 mg 1 pill daily, and hydrochlorothiazide 25 mg daily. Further adjustment can be done by her PCP. Patient with diabetes type 2. This remained stable during her stay. Patient will continue with metformin 500 mg 1 pill twice daily. Further adjustment can be done by her PCP. Patient with hypothyroidism. At at discharge she will continue with her medication levothyroxine 137 mcg daily and Cytomel 5 mg daily. Patient with depression with anxiety. Patient will continue with her medications including Paxil 40 mg daily, Risperdal 1 mg 1 pill twice daily and trazodone 100 mg at bedtime. Further adjustment can be done by her PCP or psychiatrist. Patient with hyperlipidemia. Patient will continue with fenofibrate 130 mg daily. Patient with underlying urinary incontinence. Patient will continue with Ditropan one pill twice daily. Recommend to follow up with urology to further address and monitor. Vital Signs/Physical Exam: Temp Pulse Resp BP Pulse Ox 98 F 74 17 165/74 H 95 07/07/18 07:25 07/07/18 08:29 07/07/18 07:25 07/07/18 08:29 07/07/18 07:25 General: Alert, In no apparent distress, Oriented x3, Cooperative HEENT: Atraumatic Neck: Supple Respiratory: Clear to auscultation bilaterally, Normal air movement Cardiovascular: Normal pulses, Regular rate/rhythm Gastrointestinal: Normal bowel sounds, Soft and benign, Non-distended, No tenderness, No masses, No rebound, No guarding Musculoskeletal: No erythema, No tenderness, No warmth Integumentary: No tenderness/swelling, No erythema, No warmth, No cyanosis Neurological: Normal speech, Normal strength at 5/5 x4 extr, Normal tone, Normal affect Laboratory Data at Discharge: WBC 8.2 K/uL (4.3-10.9) 07/07/18 05:34 Hgb 12.3 g/dL (12.0-15.0) 07/07/18 05:34 Hct 35.0 % (36.0-45.0) L 07/07/18 05:34 Plt Count 296 K/uL (152-406) 07/07/18 05:34 PT 11.1 SECONDS (9.5-12.5) 07/04/18 23:20 INR 0.94 07/04/18 23:20 Sodium 137 mmol/L (136-145) 07/07/18 03:54 Potassium 3.9 mmol/L (3.5-5.1) 07/07/18 03:54 BUN 16 mg/dL (7-18) 07/07/18 03:54 Creatinine 0.65 mg/dL (0.55-1.3) 07/07/18 03:54 Glucose 102 mg/dL (74-106) 07/07/18 03:54 Magnesium 1.8 mg/dL (1.8-2.4) 07/07/18 03:54 Total Bilirubin 0.2 mg/dL (0.2-1.0) 07/06/18 05:24 AST 11 U/L (15-37) L 07/06/18 05:24 ALT 21 U/L (12-78) 07/06/18 05:24 Alkaline Phosphatase 56 U/L (45-117) 07/06/18 05:24 Lipase 106 U/L (73-393) 07/04/18 23:20 Home Medications: Clonidine HCl [Catapres*] 0.2 mg PO BID 07/05/18 Fenofibrate,Micronized [Fenofibrate] 130 mg PO DAILY 07/05/18 Hydroxyzine HCl [Atarax] 10 mg PO BID PRN 07/05/18 Levothyroxine Sodium 137 mcg PO DAILY 07/05/18 Linaclotide [Linzess] 290 mcg PO DAILY 07/05/18 Liothyronine Sodium [Cytomel] 5 mcg PO DAILY 07/05/18 Losartan/Hydrochlorothiazide [Losartan-Hctz 100-25 mg Tab] 1 tab PO DAILY Metformin ER [Glucophage ER*] 500 mg PO BID 07/05/18 Naltrexone 50mg 50 mg PO DAILY 07/05/18 OXcarbazepine [Oxcarbazepine] 2 tab PO BEDTIME 07/05/18 OXcarbazepine [Oxcarbazepine] 600 mg PO DAILY 07/05/18 Omeprazole [Prilosec] 40 mg PO DAILY 07/05/18 Ondansetron [Zofran (Odt)*] 4 mg PO TID PRN 07/05/18 Oxybutynin Chloride [Ditropan*] 5 mg PO BID 07/05/18 PARoxetine HCl [Paroxetine HCl] 40 mg PO DAILY 07/05/18 Trazodone HCl 100 mg PO BEDTIME 07/05/18 risperiDONE [Risperdal 1 mg tab*] 1 mg PO BID 07/05/18 Smz./Tmp. [Bactrim Ds 800 MG/160 MG] 1 tab PO BID #20 tab 07/07/18 New Medications: Smz./Tmp. [Bactrim Ds 800 MG/160 MG] 1 tab PO BID #20 tab Patient Discharge Instructions: 1. Recommend to follow up with PCP within 1 week to follow up this hospitalization. 2. Patient presented with multifocal left pyelonephritis. Patient seen and evaluated by urology. Patient was treated with IV antibiotic therapy. Patient improved. At discharge she is without any significant abdominal pain, nausea and vomiting. UTI prevention addressed in detail. Urine culture shows normal marisol. At discharge she will continue with antibiotic-Bactrim DS 1 pill twice daily for 10 days for broad- spectrum control. Recommend to follow up with urology in 1-2 weeks to follow up this hospitalization and continue her care. Urology or her PCP will need to follow up on final results of urine culture within the next 24-48 hr. 3. Patient with hypertension. This has remained stable. At discharge she will continue with her medication-clonidine 0.2 mg 1 pill twice daily, losartan 100 mg 1 pill daily, and hydrochlorothiazide 25 mg daily. Further adjustment can be done by her PCP. 4. Patient with diabetes type 2. This remained stable during her stay. Patient will continue with metformin 500 mg 1 pill twice daily. Further adjustment can be done by her PCP. 5. Patient with hypothyroidism. At at discharge she will continue with her medication levothyroxine 137 mcg daily and Cytomel 5 mg daily. 6. Patient with depression with anxiety. Patient will continue with her medications including Paxil 40 mg daily, Risperdal 1 mg 1 pill twice daily and trazodone 100 mg at bedtime. Further adjustment can be done by her PCP or psychiatrist. 7. Patient with hyperlipidemia. Patient will continue with fenofibrate 130 mg daily. 8. Patient with underlying urinary incontinence. Patient will continue with Ditropan one pill twice daily. Recommend to follow up with urology to further address and monitor. Diet: AHA Activity: Ad guzman Time spent managing pt's care (in minutes): 55
--- NOTE | 2018-07-07 19:17 | PN ---
Subjective: The patient with multifocal pyelonephritis. Urine cultures not grow anything significant yet. She is about to be discharged on Augmentin x 14 days. We talked to Dr. Chicas about that since urine culture is not finalized yet. She can follow up with me in a month or so. We will continue all regular medications. JERRY/TRAVIS Voice ID: [id number] Report ID: [id number] ROSANGELA
== END 2018-07-07 15:45 | disposition home or self-care (01) ==
LOC: ER 22:59 → ERHOLD 07-05 02:34 → 2ND 07-05 03:27
PROVIDERS: ADMIT Hospitalist; ATTEND Hospitalist
DX: N10 Acute pyelonephritis (principal); E86.0 Dehydration; F41.8 Other specified anxiety disorders; I10 Essential (primary) hypertension; E03.9 Hypothyroidism, unspecified; E11.9 Type 2 diabetes mellitus without complications; E78.5 Hyperlipidemia, unspecified; R32 Unspecified urinary incontinence
CPT/HCPCS: 36415; 71045; 74177; 80048; 80053; 80076; 81003; 81025; 82962; 83690; 83735; 83880; 84484; 85025; 85610; 87086; 87088; 93005; 96361; 96365; 96367; 96375; 99285; G0378; J0696; J1650; J2405; J3475; J7030; Q9967

== ENCOUNTER 2018-08-28 08:46 | Emergency (ER) | payer OTHER ==
[2018-08-28] MEDS ORDERED: NA CHLORIDE 0.9% 1,000 ML ONE ×2 (09:12→11:26)
[2018-08-28] MEDS ORDERED: ONDANSETRON 4 MG/2 ML VIAL ONE (09:12)
[2018-08-28 09:43] LABS: Absolute Lymphocytes (CBC) 1.4 K/uL (0.7-4.9); Basophils % 0.1 % (0-1.3); Eosinophils % 0.3 % (0-4.4); Hematocrit 36.3 % (36.0-45.0); Lymphocytes % 13.9 % (15.3-44.8); MPV 8.2 fL (7.6-11.3); Monocytes % 5.4 % (3.3-12.3); RBC Red Blood Cell Count 4.08 M/uL (3.86-4.86)
[2018-08-28 09:53] LABS: BUN Blood Urea Nitrogen 16 mg/dL (7-18); Bicarbonate 27 mmol/L (21-32); Glucose Level 238 mg/dL (74-106); Potassium 3.8 mmol/L (3.5-5.1); Sodium Level 139 mmol/L (136-145); Troponin (Emerg Dept Use Only) < 0.02 ng/mL (0.0-0.045)
[2018-08-28] MEDS ORDERED: MORPHINE 4 MG/ML SYR ONE (10:14)
--- OUTSIDE RECORDS SUMMARY | 2018-08-28 10:35 | XMS REPORT ---
:1960 [facility] Address [address] [place] [address] Dr. Vasquez [address] [place] [id number] Care Team Providers Name Role Phone Unavailable Unavailable Unavailable Problems This patient has no known problems. Allergies, Adverse Reactions, Alerts This patient has no known allergies or adverse reactions. Medications This patient has no known medications.
[2018-08-28 10:43] LABS: Urine Bacteria 20-50 /HPF (<20); Urine Culture Reflex Order NOT NEEDED; Urine RBC <5 /HPF (NONE SEEN)
[2018-08-28 10:45] LABS: Urine Blood TRACE (NEG); Urine Glucose TRACE (NEG); Urine Protein TRACE (NEG); Urine pH 5.5 (5.0-7.0)
--- NOTE | 2018-08-28 10:50 | RAD REPORT ---
EXAM DESCRIPTION: CT - Abdomen Pelvis W Contrast - 08/28/2018 10:36 am CLINICAL HISTORY: Abdominal pain, vomiting, kidney infection, dysuria COMPARISON: CT study of 2019 TECHNIQUE: Biphasic, helical CT imaging of the abdomen and pelvis was performed following 100 ml non -ionic IV contrast. Oral contrast was given. All CT scans are performed using dose optimization technique as appropriate and may include automated exposure control or mA/KV adjustment according to patient size. FINDINGS: No suspicious findings in the lung bases. The liver, spleen, and pancreas show no focal findings. Liver shows a borderline to mild fatty infilt ration pattern. Gallbladder and biliary tree are normal. No hydronephrosis or obstructing calculus. There is heterogeneous enhancement in the superior and mid portion of the left kidney. No abscess. No abnormal enhancement of the right kidney. No solid mass le santos. No bladder abnormalities. No adrenal abnormality. Uterus and ovaries show no suspicious finding s. Small hiatal hernia is present. No acute stomach or small bowel finding. Moderate stool volume in the colon. The appendix is normal. No free air or free fluid. No pneumatosis. No perinephric stranding or other sites of inflammatory stranding. No hernia, mass or bulky lymphadenopathy. No suspicious bony findings. IMPRESSION: Mild left-sided pyelonephritis.
[2018-08-28] MEDS ORDERED: CEFTRIAXONE/SWI 1gm 1 GM/10 ML SYR ONE (11:18)
[2018-08-28] MEDS ORDERED: METOCLOPRAMIDE 10 MG/2mL INJ ONE (11:26)
[2018-08-28] MEDS ORDERED: levoFLOXacin 500 MG TAB ONE (11:26)
--- NOTE | 2018-08-28 12:43 | EDPHYS ---
Physician Documentation [facility] Name: Jaimie Amanda Age: 57 yrs Sex: Female : 1960 Arrival Date: 08/28/2018 Time: 08:47 Bed 8 Private MD: COSTA Physician Diego Ramirez HPI: 08/28 09:03 This 57 yrs old Female presents to ER via EMS with complaints of kb Nausea/Vomiting. 09:03 The patient presents to the emergency department with nausea, vomiting. Onset: The kb symptoms/episode began/occurred yesterday. Possible causes: unknown. The symptoms are aggravated by nothing. The symptoms are alleviated by nothing. Associated signs and symptoms: Pertinent positives: dysuria, nausea, vomiting, flank pain. Severity of symptoms: At their worst the symptoms were moderate in the emergency department the symptoms are unchanged. The patient has experienced a previous episode, approximately 2 months ago, and the symptoms today are exactly the same, pyelonephritis. The patient has not recently seen a physician. Pt reports dysuria, flank pain, n/v that started yesterday. States the symptoms got worse so her mother called 911. Reports the symptoms are the same as the last time she had a kidney infection. Historical: - Allergies: 08:53 Nitroglycerin; hj - Home Meds: 09:22 hydroxyzine HCl 50 mg Oral tab 1 tab BID PRN [Active]; levothyroxine 137 mcg tab 1 tab hj once daily [Active]; Linzess 290 mcg Oral cap 1 cap once daily [Active]; liothyronine 5 mcg Oral tab 1 tab once daily [Active]; losartan-hydrochlorothiazide 100-25 mg Oral tab 1 tab once daily [Active]; metformin 500 mg Oral tab 1 tab 2 times per day [Active]; naltrexone 50 mg Oral tab 1 tab once daily [Active]; omeprazole 40 mg Oral cpDR 1 cap once daily [Active]; oxcarbazepine 600 mg Oral tab 1 am and 2 pm [Active]; oxybutynin chloride 5 mg Oral tab 1 tab 2 times per day [Active]; paroxetine HCl 40 mg Oral tab 1 tab once daily [Active]; trazodone 100 mg Oral tab 1 tab nightly [Active]; - PMHx: 08:53 Anxiety; Depression; Diabetes - NIDDM; etoh abuse; Hypertension; Hypothyroidism; hj Seizures; - PSHx: 08:53 Thyroidectomy; Hernia repair; breast implants; hj - Immunization history:: Adult Immunizations up to date. - Social history:: Smoking status: unknown. - Ebola Screening: : Patient negative for fever greater than or equal to 101.5 degrees Fahrenheit, and additional compatible Ebola Virus Disease symptoms Patient denies exposure to infectious person Patient denies travel to an Ebola-affected area in the 21 days before illness onset. ROS: 09:02 Constitutional: Negative for fever, chills, and weight loss, ENT: Negative for injury, kb pain, and discharge, Neck: Negative for injury, pain, and swelling, Cardiovascular: Negative for chest pain, palpitations, and edema, Respiratory: Negative for shortness of breath, cough, wheezing, and pleuritic chest pain, MS/Extremity: Negative for injury and deformity, Skin: Negative for injury, rash, and discoloration, Neuro: Negative for headache, weakness, numbness, tingling, and seizure. 09:02 Abdomen/GI: Positive for nausea and vomiting, Negative for diarrhea, constipation, abdominal cramps, anorexia. 09:02 : Positive for urinary symptoms, flank pain, urinary frequency, burning with urination. Exam: 09:02 Constitutional: This is a well developed, well nourished patient who is awake, alert, kb and in no acute distress. Head/Face: Normocephalic, atraumatic. ENT: Nares patent. No nasal discharge, no septal abnormalities noted. Tympanic membranes are normal and external auditory canals are clear. Oropharynx with no redness, swelling, or masses, exudates, or evidence of obstruction, uvula midline. Mucous membranes moist. Neck: Trachea midline, no thyromegaly or masses palpated, and no cervical lymphadenopathy. Supple, full range of motion without nuchal rigidity, or vertebral point tenderness. No Meningismus. Chest/axilla: Normal chest wall appearance and motion. Nontender with no deformity. No lesions are appreciated. Cardiovascular: Regular rate and rhythm with a normal S1 and S2. No gallops, murmurs, or rubs. Normal PMI, no JVD. No pulse deficits. Respiratory: Lungs have equal breath sounds bilaterally, clear to auscultation and percussion. No rales, rhonchi or wheezes noted. No increased work of breathing, no retractions or nasal flaring. Skin: Warm, dry with normal turgor. Normal color with no rashes, no lesions, and no evidence of cellulitis. MS/ Extremity: Pulses equal, no cyanosis. Neurovascular intact. Full, normal range of motion. Neuro: Awake and alert, GCS 15, oriented to person, place, time, and situation. Cranial nerves II-XII grossly intact. Motor strength 5/5 in all extremities. Sensory grossly intact. Cerebellar exam normal. Normal gait. 09:02 Abdomen/GI: Inspection: abdomen appears normal, Bowel sounds: normal, in all quadrants, Palpation: soft, in all quadrants, mild abdominal tenderness, in the right lower quadrant and left lower quadrant. Vital Signs: 08:50 BP 137 / 69; Pulse 85; Resp 18; Temp 98.1(TE); Pulse Ox 96% on R/A; Weight 99.79 kg; hj Height 5 ft. 6 in. (167.64 cm); Pain 10/10; 10:04 BP 120 / 70; Pulse 85; Resp 18; Pulse Ox 98% on R/A; hj 11:37 BP 118 / 68; Pulse 84; Resp 18; Pulse Ox 98% on 2 lpm NC; hj 12:52 BP 125 / 69; Pulse 82; Resp 18; Pulse Ox 100% on R/A; 08:50 Body Mass Index 35.51 (99.79 kg, 167.64 cm) MDM: 08:[address] [facility] 09:02 Data reviewed: vital signs, nurses notes. Data interpreted: Pulse oximetry: on room air kb is 96 %. Interpretation: normal. 12:41 Counseling: I had a detailed discussion with the patient and/or guardian regarding: the kb historical points, exam findings, and any diagnostic results supporting the discharge/admit diagnosis, lab results, radiology results, the need for outpatient follow up, a family practitioner, to return to the emergency department if symptoms worsen or persist or if there are any questions or concerns that arise at home. 08/28 08:51 Order name: Urine Culture 08/28 08:51 Order name: Basic Metabolic Panel 08/28 08:51 Order name: Blood Culture Adult (2) 08/28 08:51 Order name: CBC with Diff 08/28 08:51 Order name: Lactate 08/28 08:51 Order name: Procalcitonin; Complete Time: 10:07 kb 08/28 08:51 Order name: Troponin (emerg Dept Use Only); Complete Time: 09:54 kb 08/28 08:51 Order name: Urine Microscopic Only; Complete Time: 10:45 kb 08/28 08:53 Order name: Urine Culture EDMS 08/28 08:53 Order name: Basic Metabolic Panel; Complete Time: 09:54 EDMS 08/28 08:53 Order name: Blood Culture EDMS 08/28 08:53 Order name: CBC with Automated Diff; Complete Time: 09:51 EDMS 08/28 08:53 Order name: Lactate; Complete Time: 10:07 EDMS 08/28 09:50 Order name: Urine Dipstick--Ancillary (enter results); Complete Time: 10:46 eb 08/28 08:51 Order name: IV Saline Lock - Large Bore; Complete Time: 08:55 kb 08/28 08:51 Order name: Labs collected and sent; Complete Time: 09:20 kb 08/28 08:51 Order name: O2 Per Protocol; Complete Time: 08:54 kb 08/28 08:51 Order name: O2 Sat Monitoring; Complete Time: 08:54 kb 08/28 08:51 Order name: Urine Dipstick-Ancillary (obtain specimen); Complete Time: 09:20 kb 08/28 09:56 Order name: CT Abd/Pelvis - IV Contrast Only; Complete Time: 10:54 kb 08/28 10:04 Order name: Urine --Ancillary (enter results); Complete Time: 10:45 eb 08/28 11:55 Order name: Lactate; Complete Time: 12:41 kb 08/28 12:20 Order name: PO challenge; Complete Time: 12:29 kb Administered Medications: 08:54 Drug: Zofran 4 mg Route: IVP; Site: right antecubital; hj 09:55 Follow up: Response: No adverse reaction hj 08:54 Drug: NS 0.9% 1000 ml Route: IV; Rate: 1000 ml; Site: right antecubital; hj 09:55 Follow up: IV Status: Completed infusion hj 09:56 Drug: morphine 4 mg Route: IVP; Site: left antecubital; hj 10:02 Follow up: Response: No adverse reaction; Pain is decreased hj 10:55 Drug: Rocephin 1 grams Route: IV; Rate: calculated rate; Site: left antecubital; hj 11:00 Follow up: IV Status: Completed infusion; IV Intake: 10ml hj 11:06 Drug: NS 0.9% 1000 ml Route: IV; Rate: 1000 ml; Site: right antecubital; hj 12:54 Follow up: IV Status: Completed infusion; IV Intake: 1000ml hj 11:06 Drug: LevaQUIN 500 mg Route: PO; hj 11:56 Follow up: Response: No adverse reaction hj 11:06 Drug: Reglan 10 mg Route: IVP; Site: right antecubital; hj 11:55 Follow up: Response: No adverse reaction hj 11:56 Follow up: Response: No adverse reaction; Nausea is decreased hj Disposition: 08/28/18 12:42 Discharged to Home. Impression: Urinary tract infection, site not specified, Acute tubulo-interstitial nephritis. - Condition is Stable. - Discharge Instructions: Pyelonephritis, Adult, [id number], Urinary Tract Infection, Adult, [id number]. - Prescriptions for Zofran 4 mg Oral Tablet - take 1 tablet by ORAL route every 12 hours As needed; 20 tablet. Levaquin 500 mg Oral Tablet - take 1 tablet by ORAL route once daily for 10 days; 10 tablet. Tramadol 50 mg Oral Tablet - take 1 tablet by ORAL route every 8 hours as needed; 12 tablet. - Medication Reconciliation Form, Thank You Letter, Antibiotic Education, Prescription Opioid Use form. - Follow up: Emergency Department; When: As needed; Reason: Worsening of condition. Follow up: Private Physician; When: 2 - 3 days; Reason: Recheck today's complaints, Continuance of care, Re-evaluation by your physician. Addendum: 08/30/2018 09:39 Co-signature as Attending Physician, Diego Ramirez MD I agree with the assessment and c cordero plan of care. Signatures: Dispatcher [employer] Emma Navarrete, [employer]-C EDUARDO-Diego Gallo MD MD cha Joaquin, Henry, RN RN hj Corrections: (The following items were deleted from the chart) 08/28 13:10 12:42 08/28/2018 12:42 Discharged to Home. Impression: Urinary tract infection, site hj not specified; Acute tubulo-interstitial nephritis. Condition is Stable. Forms are Medication Reconciliation Form, Thank You Letter, Antibiotic Education, Prescription Opioid Use. Follow up: Emergency Department; When: As needed; Reason: Worsening of condition. Follow up: Private Physician; When: 2 - 3 days; Reason: Recheck today's complaints, Continuance of care, Re-evaluation by your physician. kb
--- NOTE | 2018-08-28 12:43 | ER ---
Nurse's Notes [facility] Name: Jaimie Amanda Age: 57 yrs Sex: Female : 1960 Arrival Date: 08/28/2018 Time: 08:47 Bed 8 Private MD: Diagnosis: Urinary tract infection, site not specified;Acute tubulo-interstitial nephritis Presentation: 08/28 08:48 Presenting complaint: EMS states: was here yesterday for kidney infection, was sent hj home, she still complains of vomiting; BGL- 219; BP- 170/90; 20 g R AC; Zofran 4 mg given en route; complaints of back pain and burning with urination;. Transition of care: patient was not received from another setting of care. Onset of symptoms was August 28, 2018. Risk Assessment: Do you want to hurt yourself or someone else? Patient reports no desire to harm self or others. Initial Sepsis Screen: Does the patient meet any 2 criteria? No. Patient's initial sepsis screen is negative. Does the patient have a suspected source of infection? No. Patient's initial sepsis screen is negative. Care prior to arrival: None. 08:48 Method Of Arrival: EMS: [facility] 08:48 Acuity: ZHEN 3 hj Triage Assessment: 08:55 General: Appears in no apparent distress. uncomfortable, Behavior is calm, cooperative, hj appropriate for age. Pain: Complains of pain in back. GI: Reports nausea, vomiting. Historical: - Allergies: 08:53 Nitroglycerin; hj - Home Meds: 09:22 hydroxyzine HCl 50 mg Oral tab 1 tab BID PRN [Active]; levothyroxine 137 mcg tab 1 tab hj once daily [Active]; Linzess 290 mcg Oral cap 1 cap once daily [Active]; liothyronine 5 mcg Oral tab 1 tab once daily [Active]; losartan-hydrochlorothiazide 100-25 mg Oral tab 1 tab once daily [Active]; metformin 500 mg Oral tab 1 tab 2 times per day [Active]; naltrexone 50 mg Oral tab 1 tab once daily [Active]; omeprazole 40 mg Oral cpDR 1 cap once daily [Active]; oxcarbazepine 600 mg Oral tab 1 am and 2 pm [Active]; oxybutynin chloride 5 mg Oral tab 1 tab 2 times per day [Active]; paroxetine HCl 40 mg Oral tab 1 tab once daily [Active]; trazodone 100 mg Oral tab 1 tab nightly [Active]; - PMHx: 08:53 Anxiety; Depression; Diabetes - NIDDM; etoh abuse; Hypertension; Hypothyroidism; hj Seizures; - PSHx: 08:53 Thyroidectomy; Hernia repair; breast implants; hj - Immunization history:: Adult Immunizations up to date. - Social history:: Smoking status: unknown. - Ebola Screening: : Patient negative for fever greater than or equal to 101.5 degrees Fahrenheit, and additional compatible Ebola Virus Disease symptoms Patient denies exposure to infectious person Patient denies travel to an Ebola-affected area in the 21 days before illness onset. Screenin:55 Abuse screen: Denies threats or abuse. Denies injuries from another. Nutritional hj screening: No deficits noted. Tuberculosis screening: No symptoms or risk factors identified. Fall Risk Secondary diagnosis (15 points). Assessment: 08:56 GI: Abdomen is distended. hj 08:56 General: Appears in no apparent distress. uncomfortable, Behavior is calm, cooperative, hj appropriate for age. Pain: Complains of pain in left lower quadrant and right lower quadrant and back. Neuro: Level of Consciousness is awake, alert, obeys commands, Oriented to person, place, time, situation, Appropriate for age. Cardiovascular: Capillary refill < 3 seconds Patient's skin is warm and dry. Respiratory: Airway is patent Respiratory effort is even, unlabored, Respiratory pattern is regular, symmetrical. : Urine is cloudy, Reports burning with urination. EENT: No signs and/or symptoms were reported regarding the EENT system. Derm: No signs and/or symptoms reported regarding the dermatologic system. Musculoskeletal: No signs and/or symptoms reported regarding the musculoskeletal system. 09:30 Reassessment: Patient and/or family updated on plan of care and expected duration. Pain hj level reassessed. Patient is alert, oriented x 3, equal unlabored respirations, skin warm/dry/pink. awaiting POC:. 10:30 Reassessment: Patient and/or family updated on plan of care and expected duration. Pain hj level reassessed. Patient is alert, oriented x 3, equal unlabored respirations, skin warm/dry/pink. mother in room; awaiting POC:. 11:37 Reassessment: Patient and/or family updated on plan of care and expected duration. Pain hj level reassessed. Patient is alert, oriented x 3, equal unlabored respirations, skin warm/dry/pink. still complaining of nausea;. 12:32 Reassessment: able to tolerate PO challenge;. hj 12:51 Reassessment: for D/C; pt requested for pain meds Rx; MD informed; MD to write a Rx;. hj Vital Signs: 08:50 BP 137 / 69; Pulse 85; Resp 18; Temp 98.1(TE); Pulse Ox 96% on R/A; Weight 99.79 kg; hj Height 5 ft. 6 in. (167.64 cm); Pain 10/10; 10:04 BP 120 / 70; Pulse 85; Resp 18; Pulse Ox 98% on R/A; hj 11:37 BP 118 / 68; Pulse 84; Resp 18; Pulse Ox 98% on 2 lpm NC; hj 12:52 BP 125 / 69; Pulse 82; Resp 18; Pulse Ox 100% on R/A; hj 08:50 Body Mass Index 35.51 (99.79 kg, 167.64 cm) hj ED Course: 08:47 Patient arrived in ED. hj 08:47 Diego Ramirez MD is Attending Physician. hannah 08:49 Emma Hussein FNP-C is PHCP. kb 08:50 Triage completed. hj 08:54 Arm band placed on right wrist. hj 08:56 Patient has correct armband on for positive identification. Placed in gown. Bed in low hj position. Call light in reach. Side rails up X2. 08:56 Maintain EMS IV. Dressing intact. Good blood return noted. Site clean \T\ dry. Gauge \T\ hj site: 20g R AC. 09:10 Initial lab(s) drawn, by me, sent to lab. First set of blood cultures drawn by me, hj Urine collected:. 09:19 Leandro Miranda, RN is Primary Nurse. hj 09:20 Inserted saline lock: 20 gauge in left antecubital area, using aseptic technique. Blood hj collected. 10:34 CT completed. Patient tolerated procedure well. Patient moved back from CT. bq 10:37 CT Abd/Pelvis - IV Contrast Only In Process Unspecified. EDMS 12:03 Lactate Sent. hj 12:53 No provider procedures requiring assistance completed. IV discontinued, intact, hj bleeding controlled, No redness/swelling at site. Pressure dressing applied. Administered Medications: 08:54 Drug: Zofran 4 mg Route: IVP; Site: right antecubital; hj 09:55 Follow up: Response: No adverse reaction hj 08:54 Drug: NS 0.9% 1000 ml Route: IV; Rate: 1000 ml; Site: right antecubital; hj 09:55 Follow up: IV Status: Completed infusion hj 09:56 Drug: morphine 4 mg Route: IVP; Site: left antecubital; hj 10:02 Follow up: Response: No adverse reaction; Pain is decreased hj 10:55 Drug: Rocephin 1 grams Route: IV; Rate: calculated rate; Site: left antecubital; hj 11:00 Follow up: IV Status: Completed infusion; IV Intake: 10ml hj 11:06 Drug: NS 0.9% 1000 ml Route: IV; Rate: 1000 ml; Site: right antecubital; hj 12:54 Follow up: IV Status: Completed infusion; IV Intake: 1000ml hj 11:06 Drug: LevaQUIN 500 mg Route: PO; hj 11:56 Follow up: Response: No adverse reaction hj 11:06 Drug: Reglan 10 mg Route: IVP; Site: right antecubital; hj 11:55 Follow up: Response: No adverse reaction hj 11:56 Follow up: Response: No adverse reaction; Nausea is decreased hj Intake: 11:00 IV: 10ml; Total: 10ml. hj 12:54 IV: 1000ml; Total: 1010ml. Outcome: 12:42 Discharge ordered by . kb 12:53 Discharged to home via wheelchair, with family. hj 12:53 Condition: stable 12:53 Discharge instructions given to patient, family, Instructed on discharge instructions, follow up and referral plans. medication usage, Demonstrated understanding of instructions, follow-up care, medications, Prescriptions given X 3. 13:10 Patient left the ED. hj Addendum: 08/31/2018 08:21 Addendum: Culture Results: Positive urine culture. No further action required. Bacteria s s sensitive to prescribed antibiotic. Signatures: Dispatcher [employer] EDVT Emma Hussein, COREY CLARK-Diego Gallo MD MD cha Quilty, Betty bq Smirch, Shelby, RN RN ss Leandro Miranda, RN RN hj
== END 2018-08-28 13:10 | disposition home or self-care (01) ==
LOC: ER 08:46
DX: N39.0 Urinary tract infection, site not specified (principal); N10 Acute pyelonephritis; I10 Essential (primary) hypertension; E03.9 Hypothyroidism, unspecified; E11.9 Type 2 diabetes mellitus without complications; F41.9 Anxiety disorder, unspecified; F32.9 Major depressive disorder, single episode, unspecified; G40.909 Epilepsy, unspecified, not intractable, without status epilepticus; Z88.8 Allergy status to other drugs, medicaments and biological substances; Z98.82 Breast implant status
CPT/HCPCS: 36415; 74177; 80048; 81003; 81015; 81025; 83605; 84145; 84484; 85025; 87040; 87077; 87086; 87088; 87186; 99284; J0696; J2405; J2765; J7030; Q9967

== ENCOUNTER 2018-11-02 09:57 | Emergency (ER) | payer OTHER ==
--- OUTSIDE RECORDS SUMMARY | 2018-11-02 10:02 | XMS REPORT | Summary of Care ---
:1960 Author Organization [facility] Address [address] [place] [id number] Care Team Providers Name Role Phone Cristian So [facility] Primary Care Provider [phone] Reason for Visit Reason Comments Assessment Encounter Details Date Type Department Care Team Description 10/21/2018 Telephone [facility] Urology- Natacha Back [employer] Assessment [place] [address] [facility] [address] [facility] [address] [place] [address] [place] [id number] Allergies Active Allergy Reactions Severity Noted Date Comments Nitro Transdermal Other - See comments 07/27/2018 hypotension Acetaminophen Other - See comments 07/27/2018 Fatty liver documented as of this encounter (statuses as of 10/21/2018) Medications Medication Sig Dispensed Refills Start Date End Date Status hydrOXYzine 50 mg 0 07/12/2018 Active capsule fenofibrate micronized 0 07/14/2018 Active 130 mg capsule cloNIDine 0.2 mg tablet 0 06/24/2018 Active levothyroxine 137 mcg 0 07/12/2018 Active tablet LINZESS 290 mcg Cap 0 07/14/2018 Active losartan-hydrochlorothia 0 05/06/2018 Active zide 100-25 mg per tablet metformin ER 500 mg 24 0 07/05/2018 Active hr tablet naltrexone 50 mg tablet 0 07/12/2018 Active omeprazole 40 mg capsule 0 07/12/2018 Active paroxetine 40 mg tablet 0 07/12/2018 Active risperiDONE 1 mg tablet 0 07/01/2018 Active ondansetron 4 mg Take 1 tablet 10 tablet 0 07/27/2018 Active tabletIndications: by mouth every Nausea and vomiting, 12 (twelve) intractability of hours. vomiting not specified, unspecified vomiting type oxybutynin chloride 5 mg Take 1 tablet 60 tablet 5 07/27/2018 Active tabletIndications: by mouth 2 Urinary frequency (two) times daily. sulfamethoxazole-trimeth Take 1 tablet 14 tablet 0 07/30/2018 Active oprim (BACTRIM DS) by mouth 2 800-160 mg per (two) times tabletIndications: daily. Urinary tract infection without hematuria, site unspecified oxybutynin chloride 5 mg Take 1 tablet 180 tablet 5 09/14/2018 Active tabletIndications: by mouth 2 Overactive bladder (two) times daily. conjugated estrogens Insert 0.5 g 30 g 5 09/14/2018 Active 0.625 mg/gram vaginal into vagina creamIndications: Urge weekly. Twice a incontinence week documented as of this encounter (statuses as of 10/21/2018) Active Problems Not on filedocumented as of this encounter (statuses as of 10/21/2018) Social History Tobacco Use Types Packs/Day Years Used Date Current Every Day Smoker Smokeless Tobacco: Never Used Sex Assigned at Date Recorded Not on file Job Start Date Occupation Industry Not on file Not on file Not on file Travel History Travel Start Travel End No recent travel history available. documented as of this encounter Last Filed Vital Signs Not on filedocumented in this encounter Plan of Treatment Date Type Specialty Care Team Description 03/23/2019 Office Visit Urology Natacha Back, [employer] [address] [id number] Health Maintenance Due Date Last Done Comments HEPATITIS C (HCV) SCREEN 1960 PNEUMOCOCCAL 0-64 YEARS COMBINED SERIES (1 of 1 - 1966 PPSV23) DTaP,Tdap,and Td Vaccines (1 - Tdap) 12/16/1979 PAP SMEAR 1981 MAMMOGRAM 2000 COLONOSCOPY 2010 Zoster Recombinant Vaccine (SHINGRIX) (1 of 2) 2010 LUNG CANCER SCREEN: Recommended for age 55-80 with 30 + 12/16/2015 pack year history INFLUENZA VACCINE (#1) 2018 documented as of this encounter Results Not on filedocumented in this encounter Insurance Payer Benefit Plan / Subscriber ID Effective Dates Phone Address Type Group [facility] xxxxxxxxx 2017-Present Medicaid COMM PLAN - PLUS MANAGED MEDICAID documented as of this encounter
--- OUTSIDE RECORDS SUMMARY | 2018-11-02 10:02 | XMS REPORT ---
:1960 Author [facility] Address [address] [place] [address] Dr. Vasquez [address] [place] [id number] Care Team Providers Name Role Phone Unavailable Unavailable Unavailable Problems This patient has no known problems. Allergies, Adverse Reactions, Alerts This patient has no known allergies or adverse reactions. Medications This patient has no known medications.
[2018-11-02] MEDS ORDERED: NA CHLORIDE 0.9% 1,000 ML ONE (10:20)
[2018-11-02] MEDS ORDERED: Nicardipine/NS 25 MG/250 ML KIT IV ONE (10:20)
[2018-11-02] MEDS ORDERED: ONDANSETRON 4 MG/2 ML VIAL ONE ×2 (10:39→13:45)
[2018-11-02] MEDS ORDERED: PROMETHAZINE 25 MG/ML VIAL ONE ×2 (10:49→13:02)
[2018-11-02] MEDS ORDERED: DIAZEPAM 10 MG/2 ML INJ SYRINGE ONE (10:50)
[2018-11-02 10:57] LABS: Protime INR 0.9
[2018-11-02 10:58] LABS: Absolute Lymphocytes (CBC) 3.2 K/uL (0.7-4.9); Basophils % 0.5 % (0-1.3); Hematocrit 43.1 % (36.0-45.0); Lymphocytes % 29.3 % (15.3-44.8); RBC Red Blood Cell Count 4.97 M/uL (3.86-4.86)
[2018-11-02 11:08] LABS: Barbiturates NEGATIVE (NEGATIVE); Benzodiazepines NEGATIVE (NEGATIVE); Cocaine NEGATIVE (NEGATIVE); METHAMPHETAM NEGATIVE (NEGATIVE); Methadone NEGATIVE (NEGATIVE); Opiates NEGATIVE (NEGATIVE); Phencyclidine NEGATIVE (NEGATIVE); THC Cannibis NEGATIVE (NEGATIVE); Urine Appearance CLEAR; Urine Bilirubin NEGATIVE (NEG); Urine Blood NEGATIVE (NEG); Urine Color ORANGE; Urine Glucose NEGATIVE (NEG); Urine Protein TRACE (NEG)
--- NOTE | 2018-11-02 11:08 | RAD REPORT ---
EXAM DESCRIPTION: RAD - Chest Single View - 11/02/2018 10:51 am CLINICAL HISTORY: PAIN Chest pain. COMPARISON: Chest Single View dated 07/05/2018; Chest Single View dated 11/20/2016 FINDINGS: Portable technique limits examination quality. The lungs are grossly clear. The heart is normal in size. No displaced fractures. IMPRESSION: No acute intrathoracic process suspected.
[2018-11-02 11:13] LABS: Urine Microscopic Reflex ORDER UMIC
[2018-11-02 11:14] LABS: ALT/SGPT 39 U/L (12-78); AST/SGOT 21 U/L (15-37); Albumin 4.4 g/dL (3.4-5.0); Alkaline Phosphatase 122 U/L (45-117); BUN Blood Urea Nitrogen 14 mg/dL (7-18); Bicarbonate 25 mmol/L (21-32); Bilirubin Direct < 0.1 mg/dL (0-0.2); Bilirubin Total 0.2 mg/dL (0.2-1.0); Glucose Level 158 mg/dL (74-106); Magnesium 1.7 mg/dL (1.8-2.4); NT PRO-BNP 271 pg/mL (<125); Potassium 3.8 mmol/L (3.5-5.1); Protein, Total 8.2 g/dL (6.4-8.2); Sodium Level 132 mmol/L (136-145); Troponin (Emerg Dept Use Only) < 0.02 ng/mL (0.0-0.045)
--- NOTE | 2018-11-02 11:19 | EKG ---
Test Date: 2018-11-02 Test Time: 10:13:46 Kindergartner: KARL MEASUREMENT RESULTS: Intervals: Rate: 67 MA: 180 QRSD: 94 QT: 426 QTc: 450 [place]: P: 69 MA: 180 QRS: 88 T: 71 INTERPRETIVE STATEMENTS: Normal sinus rhythm Normal ECG Compared to ECG 07/04/2018 23:30:08 Right-axis deviation no longer present Electronically Signed On 11-02-18 11:18:34 CDT by Daniel Cespedes
[2018-11-02 11:24] LABS: Urine Bacteria <20 /HPF (<20); Urine Culture Reflex Order NOT NEEDED
--- NOTE | 2018-11-02 11:47 | RAD REPORT ---
EXAM DESCRIPTION: CT - Head Brain Wo Cont - 11/02/2018 11:40 am CLINICAL HISTORY: vomiting Headache, drowsiness, vomiting, hypertension COMPARISON: No comparisons TECHNIQUE: All CT scans are performed using dose optimization technique as appropriate and may inclu de automated exposure control or mA/KV adjustment according to patient size. FINDINGS: No intracranial hemorrhage, hydrocephalus or extra-axial fluid collection.Mild brain atrop hy is seen.No areas of brain edema or evidence of midline shift. The paranasal sinuses and mastoids are clear. The calvarium is intact. IMPRESSION: No acute intracranial abnormality.
--- NOTE | 2018-11-02 11:54 | RAD REPORT ---
EXAM DESCRIPTION: CT - Angio Aorta For Dissection - 11/02/2018 11:40 am CLINICAL HISTORY: Chest pain radiating to the back. left flank pain, 242/102 COMPARISON: <Comparisons> TECHNIQUE: CT angiography of the aorta was performed with MIPs. All CT scans are performed using dose optimization technique as appropriate and may include automated exposure control or mA/KV adjustment according to patient size. FINDINGS: A left aortic arch is present with normal branching pattern of the great vessels.No acute aortic finding is seen such as aneurysm, penetrating ulcer or dissection. The celiac axis, SMA, FERNANDO and renal arteries are widely patent. No evidence of pulmonary embolism. The lungs are clear. Small hiatal hernia. The liver demonstrates no focal mass or biliary dilatation.The spleen, pancreas, adrenal glands and k idneys are within normal limits for arterial phase imaging. No bowel obstruction, free fluid or abscess.No pathologic enlarged lymphadenopathy identified. No fracture or worrisome bone lesion seen. IMPRESSION: No acute aortic finding is demonstrated.
[2018-11-02] MEDS ORDERED: cloNIDine HCl 0.1 MG TAB ONE (12:16)
--- NOTE | 2018-11-02 12:59 | ER ---
Nurse's Notes [facility] Name: Jaimie Amanda Age: 57 yrs Sex: Female : 1960 Arrival Date: 11/02/2018 Time: 09:58 Bed 23 Private MD: Unknown, Unknown Diagnosis: Hypertensive urgency;Nausea and vomiting Presentation: 11/02 10:05 Presenting complaint: Patient states: i have been vomiting since 2 am, and i am so tw2 nauseous, pts mother states "her blood pressure was really high this am". Transition of care: patient was not received from another setting of care. Onset of symptoms was November 02, 2018. Risk Assessment: Do you want to hurt yourself or someone else? Patient reports no desire to harm self or others. Initial Sepsis Screen: Does the patient meet any 2 criteria? No. Patient's initial sepsis screen is negative. Does the patient have a suspected source of infection? No. Patient's initial sepsis screen is negative. Care prior to arrival: None. 10:05 Method Of Arrival: Ambulatory tw2 10:05 Acuity: ZHEN 2 tw2 Triage Assessment: 10:11 General: Appears uncomfortable, Behavior is anxious. Pain: Complains of pain in back tw2 and abdomen. GI: Reports lower abdominal pain, nausea, vomiting. Historical: - Allergies: 10:11 Nitroglycerin; tw2 - Home Meds: 10:11 oxcarbazepine 600 mg Oral tab 1 am and 2 pm [Active]; omeprazole 40 mg Oral cpDR 1 cap tw2 once daily [Active]; oxybutynin chloride 5 mg Oral tab 1 tab 2 times per day [Active]; naltrexone 50 mg Oral tab 1 tab once daily [Active]; trazodone 100 mg Oral tab 1 tab nightly [Active]; metformin 500 mg Oral tab 1 tab 2 times per day [Active]; paroxetine HCl 40 mg Oral tab 1 tab once daily [Active]; losartan-hydrochlorothiazide 100-25 mg Oral tab 1 tab once daily [Active]; liothyronine 5 mcg Oral tab 1 tab once daily [Active]; levothyroxine 137 mcg tab 1 tab once daily [Active]; Linzess 290 mcg Oral cap 1 cap once daily [Active]; hydroxyzine HCl 50 mg Oral tab 1 tab BID PRN [Active]; clonidine HCl 0.1 mg Oral tab 1 tab 3 times per day [Active]; - PMHx: 10:11 Depression; etoh abuse; Hypothyroidism; Hypertension; Diabetes - NIDDM; Anxiety; tw2 Seizures; - PSHx: 10:11 Thyroidectomy; Hernia repair; breast implants; tw2 - Immunization history:: Adult Immunizations. - Social history:: Smoking status: . - Ebola Screening: : Patient denies travel to an Ebola-affected area in the 21 days before illness onset. Screenin:11 Abuse screen: Denies threats or abuse. Nutritional screening: No deficits noted. tw2 Tuberculosis screening: No symptoms or risk factors identified. Fall Risk None identified. Assessment: 10:02 General: Appears uncomfortable, Behavior is anxious. Pain: Complains of pain in tw2 abdomen. Neuro: Level of Consciousness is awake, alert, obeys commands, Oriented to person, place, time, situation. Neuro: Reports headache. Cardiovascular: Heart tones S1 S2 Patient's skin is warm and dry. Respiratory: Airway is patent Respiratory effort is even, unlabored, Respiratory pattern is regular, symmetrical, Breath sounds are clear bilaterally. GI: Abdomen is round Bowel sounds present X 4 quads. Reports lower abdominal pain, nausea, vomiting. : Reports urinary frequency. : Urine is josse tinged, pt reports taking OTC AZO at this time. EENT: No signs and/or symptoms were reported regarding the EENT system. Derm: No signs and/or symptoms reported regarding the dermatologic system. Musculoskeletal: Range of motion: intact in all extremities. 11:05 Reassessment: Patient and/or family updated on plan of care and expected duration. Pain tw2 level reassessed. Patient is alert, oriented x 3, equal unlabored respirations, skin warm/dry/pink. nausea has subsided at this time. 11:15 Reassessment: Patient appears in no apparent distress at this time. Patient and/or tw2 family updated on plan of care and expected duration. Pain level reassessed. Patient is alert, oriented x 3, equal unlabored respirations, skin warm/dry/pink. Patient states feeling better. 12:21 Reassessment: Patient appears in no apparent distress at this time. Patient and/or tw2 family updated on plan of care and expected duration. Pain level reassessed. Patient is alert, oriented x 3, equal unlabored respirations, skin warm/dry/pink. pt still feels the need to urinate frequently, bedside commode remains at bedside. 13:20 Reassessment: pt refused discharge at this time, states "im terribly nauseated and i tw2 have a headache, i cant go home now", provider notified. 14:00 Reassessment: Patient appears in no apparent distress at this time. Patient and/or tw2 family updated on plan of care and expected duration. Pain level reassessed. Patient is alert, oriented x 3, equal unlabored respirations, skin warm/dry/pink. Vital Signs: 10:06 BP 215 / 87 RA; Pulse 71; tw2 10:06 BP 242 / 102 LA; Pulse 77; Resp 17; Temp 98.1(TE); Pulse Ox 96% on R/A; Weight 77.11 kg tw2 (R); Height 5 ft. 7 in. (170.18 cm); Pain 10/10; 11:00 BP 154 / 118; Pulse 76; Resp 17; Pulse Ox 95% on R/A; tw2 11:15 BP 173 / 84; Pulse 75; Resp 17; Pulse Ox 95% on R/A; tw2 11:50 BP 198 / 96; Pulse 94; Resp 16; Temp 98.3; Pulse Ox 99% ; lt1 12:09 BP 162 / 74; Pulse 84; Resp 19; Pulse Ox 95% ; lt1 12:21 BP 159 / 71; Pulse 83; Resp 17; Pulse Ox 95% on R/A; tw2 12:34 BP 170 / 81; Pulse 86; Resp 17; Pulse Ox 96% on R/A; tw2 13:00 BP 165 / 85; Pulse 71; Resp 20; Pulse Ox 95% ; lt1 14:00 BP 167 / 93; Pulse 80; Resp 17; Pulse Ox 97% on R/A; tw2 10:06 Body Mass Index 26.63 (77.11 kg, 170.18 cm) tw2 10:06 provider notified of BP tw2 ED Course: 09:58 Patient arrived in ED. ag5 09:59 Unknown, Unknown is Private Physician. ag5 10:00 [facility] Math[facility]C [facility] snw 10:00 Villa Byrd MD is Attending Physician. snw 10:05 Maddy Prieto, RN is Primary Nurse. tw2 10:05 Bed in low position. Call light in reach. Adult w/ patient. tw2 10:06 Triage completed. tw2 10:07 Arm band placed on. tw2 10:19 EKG done, by cell technician. reviewed by Fawn NICOLE. sm3 10:40 Missed attempt(s): 22 gauge in right antecubital area. Bleeding controlled, band aid tw2 applied, catheter tip intact. Missed attempt(s): 22 gauge in left antecubital area. Bleeding controlled, band aid applied, catheter tip intact. 10:45 Inserted saline lock: 22 gauge in right hand, using aseptic technique. tw2 10:46 Missed attempt(s): 20 gauge in left antecubital area. Bleeding controlled, band aid iw applied, catheter tip intact. 10:55 XRAY Chest (1 view) In Process Unspecified. EDMS 11:28 Inserted saline lock: 22 gauge in left antecubital area, using aseptic technique. tw2 ,using aseptic technique. per Kristiegeotechnical intern. 11:42 CT Head Brain wo Cont In Process Unspecified. EDMS 11:42 CT Aorta for Dissection In Process Unspecified. EDMS 14:00 No provider procedures requiring assistance completed. IV discontinued, intact, tw2 bleeding controlled, No redness/swelling at site. Pressure dressing applied, x2, right hand and left ac. Administered Medications: 10:45 Drug: NS 0.9% 1000 ml Route: IV; Rate: 75 ml/hr; Site: right hand; tw2 14:00 Follow up: Response: No adverse reaction; IV Status: Order to discontinue infusion tw2 10:45 Drug: Cardene 5 mg/hr Route: IV; Rate: calculated rate; Site: right hand; tw2 12:15 Follow up: Response: No adverse reaction; Blood pressure is lowered; IV Status: Order tw2 to discontinue infusion 10:45 Drug: Zofran 4 mg Route: IVP; Site: right hand; tw2 10:55 Follow up: Response: No adverse reaction; Nausea unchanged tw2 10:50 Drug: Phenergan 6.25 mg Route: IVP; Site: right hand; tw2 11:20 Follow up: Response: No adverse reaction; Nausea is decreased tw2 10:52 Drug: Valium 5 mg Route: IVP; Site: right hand; tw2 12:19 Follow up: Response: No adverse reaction tw2 12:17 Drug: cloNIDine 0.1 mg Route: PO; tw2 13:06 Follow up: Response: No adverse reaction; Blood pressure is lowered tw2 13:06 Drug: Phenergan 6.25 mg Route: IVP; Site: right hand; tw2 13:58 Follow up: Response: No adverse reaction tw2 13:06 Drug: Valium 5 mg Route: PO; tw2 13:58 Follow up: Response: No adverse reaction tw2 13:43 Not Given (Patient Refused): Tylenol 1000 mg PO once tw2 13:50 Drug: Tylenol 1000 mg Route: PO; tw2 13:58 Follow up: Response: No adverse reaction tw2 13:50 Drug: Zofran 4 mg Route: IVP; Site: right hand; tw2 14:01 Follow up: Response: No adverse reaction; Nausea is decreased tw2 Outcome: 12:58 Discharge ordered by . snjayce 14:00 Discharged to home ambulatory, with family. tw2 14:00 Condition: stable 14:00 Discharge instructions given to patient, family, Instructed on discharge instructions, follow up and referral plans. medication usage, Demonstrated understanding of instructions, follow-up care, medications, Prescriptions given X 2. 14:04 Patient left the ED. tw2 Signatures: Dispatcher [employer] EDMS Fawn Mathis, EDUARDO-C FISH CLEANER MACHINE TENDER-Csnw Therese Logan, CATY BYRNE iw Maddy Prieto RN RN tw2 Jocelyn Chavez 3 Demetrius Lundy 5 Guillermina Talbert 1 Corrections: (The following items were deleted from the chart) 10:09 10:06 BP 242 / 102; Pulse 77bpm; Resp 17bpm; Pulse Ox 96% RA; Temp 98.1F Temporal; tw2 77.11 kg Reported; Height 5 ft. 7 in.; BMI: 26.6; Pain 12/16; tw2 10:11 10:06 BP 242 / 102 L Arm; Pulse 77bpm; Resp 17bpm; Pulse Ox 96% RA; Temp 98.1F tw2 Temporal; 77.11 kg Reported; Height 5 ft. 7 in.; BMI: 26.6; Pain 10; tw2
--- NOTE | 2018-11-02 13:00 | EDPHYS ---
Physician Documentation [facility] Name: Jaimie Amanda Age: 57 yrs Sex: Female : 1960 Arrival Date: 11/02/2018 Time: 09:58 Bed 23 Private MD: Unknown, Unknown ED Physician Villa Byrd HPI: 11/02 10:45 This 57 yrs old Female presents to ER via Ambulatory with complaints of snw Nausea/Vomiting, Pain In Left Side. 10:45 The patient presents to the emergency department with nausea, vomiting. Onset: The snw symptoms/episode began/occurred suddenly, at 02:00, and became persistent. Possible causes: unknown. The symptoms are aggravated by nothing. The symptoms are alleviated by nothing. Associated signs and symptoms: Pertinent positives: nausea, vomiting, left flank pain. Severity of symptoms: At their worst the symptoms were severe in the emergency department the symptoms are unchanged. It is unknown whether or not the patient has had similar symptoms in the past. see [facility]. Historical: - Allergies: 10:11 Nitroglycerin; tw2 - Home Meds: 10:11 oxcarbazepine 600 mg Oral tab 1 am and 2 pm [Active]; omeprazole 40 mg Oral cpDR 1 cap tw2 once daily [Active]; oxybutynin chloride 5 mg Oral tab 1 tab 2 times per day [Active]; naltrexone 50 mg Oral tab 1 tab once daily [Active]; trazodone 100 mg Oral tab 1 tab nightly [Active]; metformin 500 mg Oral tab 1 tab 2 times per day [Active]; paroxetine HCl 40 mg Oral tab 1 tab once daily [Active]; losartan-hydrochlorothiazide 100-25 mg Oral tab 1 tab once daily [Active]; liothyronine 5 mcg Oral tab 1 tab once daily [Active]; levothyroxine 137 mcg tab 1 tab once daily [Active]; Linzess 290 mcg Oral cap 1 cap once daily [Active]; hydroxyzine HCl 50 mg Oral tab 1 tab BID PRN [Active]; clonidine HCl 0.1 mg Oral tab 1 tab 3 times per day [Active]; - PMHx: 10:11 Depression; etoh abuse; Hypothyroidism; Hypertension; Diabetes - NIDDM; Anxiety; tw2 Seizures; - PSHx: 10:11 Thyroidectomy; Hernia repair; breast implants; tw2 - Immunization history:: Adult Immunizations. - Social history:: Smoking status: . - Ebola Screening: : Patient denies travel to an Ebola-affected area in the 21 days before illness onset. ROS: 10:36 Eyes: Negative for injury, pain, redness, and discharge, ENT: Negative for injury, snw pain, and discharge, Neck: Negative for injury, pain, and swelling, Cardiovascular: Negative for chest pain, palpitations, and edema, Respiratory: Negative for shortness of breath, cough, wheezing, and pleuritic chest pain. 10:36 Back: Negative for injury and pain, : Negative for injury, bleeding, discharge, and swelling, MS/Extremity: Negative for injury and deformity, Skin: Negative for injury, rash, and discoloration, Neuro: Negative for headache, weakness, numbness, tingling, and seizure. 10:36 Constitutional: Positive for body aches, malaise, poor PO intake. 10:36 Abdomen/GI: Positive for nausea and vomiting, left flank pain. Exam: 10:31 Constitutional: This is a well developed, well nourished patient who is awake, alert, snw and in no acute distress. Head/Face: Normocephalic, atraumatic. hyperemic Eyes: Pupils equal round and reactive to light, extra-ocular motions intact. Lids and lashes normal. Conjunctiva and sclera are non-icteric and not injected. Cornea within normal limits. Periorbital areas with no swelling, redness, or edema. ENT: Nares patent. No nasal discharge, no septal abnormalities noted. Tympanic membranes are normal and external auditory canals are clear. Oropharynx with no redness, swelling, or masses, exudates, or evidence of obstruction, uvula midline. Mucous membranes moist. Neck: Trachea midline, no thyromegaly or masses palpated, and no cervical lymphadenopathy. Supple, full range of motion without nuchal rigidity, or vertebral point tenderness. No Meningismus. Chest/axilla: Normal chest wall appearance and motion. Nontender with no deformity. No lesions are appreciated. Cardiovascular: Regular rate and rhythm with a normal S1 and S2. No gallops, murmurs, or rubs. Normal PMI, no JVD. No pulse deficits. Respiratory: Lungs have equal breath sounds bilaterally, clear to auscultation and percussion. No rales, rhonchi or wheezes noted. No increased work of breathing, no retractions or nasal flaring. Abdomen/GI: Soft, non-tender, with normal bowel sounds. No distension or tympany. No guarding or rebound. No evidence of tenderness throughout. Back: No spinal tenderness. No costovertebral tenderness. Full range of motion. Skin: Warm, dry with normal turgor. Normal color with no rashes, no lesions, and no evidence of cellulitis. MS/ Extremity: Pulses equal, no cyanosis. Neurovascular intact. Full, normal range of motion. 10:31 Neuro: Orientation: is normal, Mentation: appropriate for stated age, carpal spasm to right wrist. Vital Signs: 10:06 BP 215 / 87 RA; Pulse 71; tw2 10:06 BP 242 / 102 LA; Pulse 77; Resp 17; Temp 98.1(TE); Pulse Ox 96% on R/A; Weight 77.11 kg tw2 (R); Height 5 ft. 7 in. (170.18 cm); Pain 10/10; 11:00 BP 154 / 118; Pulse 76; Resp 17; Pulse Ox 95% on R/A; tw2 11:15 BP 173 / 84; Pulse 75; Resp 17; Pulse Ox 95% on R/A; tw2 11:50 BP 198 / 96; Pulse 94; Resp 16; Temp 98.3; Pulse Ox 99% ; lt1 12:09 BP 162 / 74; Pulse 84; Resp 19; Pulse Ox 95% ; lt1 12:21 BP 159 / 71; Pulse 83; Resp 17; Pulse Ox 95% on R/A; tw2 12:34 BP 170 / 81; Pulse 86; Resp 17; Pulse Ox 96% on R/A; tw2 13:00 BP 165 / 85; Pulse 71; Resp 20; Pulse Ox 95% ; lt1 14:00 BP 167 / 93; Pulse 80; Resp 17; Pulse Ox 97% on R/A; tw2 10:06 Body Mass Index 26.63 (77.11 kg, 170.18 cm) tw2 10:06 provider notified of BP tw2 MDM: 10:15 Patient medically screened. snw 12:59 Data reviewed: vital signs, nurses notes. Data interpreted: Pulse oximetry: on room air snw is 96 %. Interpretation: acceptable. Counseling: I had a detailed discussion with the patient and/or guardian regarding: the historical points, exam findings, and any diagnostic results supporting the discharge/admit diagnosis, the presence of at least one elevated blood pressure reading (>120/80) during this emergency department visit, lab results, radiology results, the need for outpatient follow up, to return to the emergency department if symptoms worsen or persist or if there are any questions or concerns that arise at home. Response to treatment: the patient's symptoms have markedly improved after treatment. Special discussion: I have referred the patient to see his PCP for further evaluation of high blood pressure. Based on the history and exam findings, there is no indication for further emergent testing or inpatient evaluation. I discussed with the patient/guardian the need to see the cath laboratory technician for further evaluation of the symptoms. I discussed with the patient/guardian the need to see the primary care provider for further evaluation of the symptoms. 11/02 10:14 Order name: Basic Metabolic Panel; Complete Time: 11:w 11/02 10:14 Order name: CBC with Diff; Complete Time: 11:w 11/02 10:14 Order name: LFT's; Complete Time: 11: snw 11/02 10:14 Order name: Magnesium; Complete Time: 11: snw 11/02 10:14 Order name: NT PRO-BNP; Complete Time: 11:w 11/02 10:14 Order name: PT-INR; Complete Time: 11:w 11/02 10:14 Order name: Troponin (emerg Dept Use Only); Complete Time: 11:w 11/02 10:14 Order name: XRAY Chest (1 view); Complete Time: 11:10 w 11/02 10:39 Order name: TSH; Complete Time: 11: snw 11/02 10:39 Order name: CT Head Brain wo Cont; Complete Time: 12:04 snw 11/02 10:39 Order name: ETOH Level; Complete Time: 11: snw 11/02 10:45 Order name: UDS; Complete Time: 11: snw 11/02 11:02 Order name: Urinalysis; Complete Time: 11: EDMS 11/02 11:22 Order name: Urine Microscopic Only; Complete Time: : EDMS 11/02 10:14 Order name: EKG; Complete Time: 10:17 snw 11/02 10:14 Order name: Cardiac monitoring; Complete Time: 10:38 snw 11/02 10:14 Order name: EKG - Nurse/Tech; Complete Time: 10:38 snw 11/02 10:14 Order name: IV Saline Lock; Complete Time: 11:20 snw 11/02 10:39 Order name: CT Aorta for Dissection; Complete Time: 12:04 snw 11/02 10:14 Order name: Labs collected and sent; Complete Time: 11:20 snw 11/02 10:14 Order name: O2 Per Protocol; Complete Time: 10:38 snw 11/02 10:14 Order name: O2 Sat Monitoring; Complete Time: 10:38 snw 11/02 12:13 Order name: Misc. Order: d/c cardene; Complete Time: 12:15 snw Administered Medications: 10:45 Drug: NS 0.9% 1000 ml Route: IV; Rate: 75 ml/hr; Site: right hand; tw2 14:00 Follow up: Response: No adverse reaction; IV Status: Order to discontinue infusion tw2 10:45 Drug: Cardene 5 mg/hr Route: IV; Rate: calculated rate; Site: right hand; tw2 12:15 Follow up: Response: No adverse reaction; Blood pressure is lowered; IV Status: Order tw2 to discontinue infusion 10:45 Drug: Zofran 4 mg Route: IVP; Site: right hand; tw2 10:55 Follow up: Response: No adverse reaction; Nausea unchanged tw2 10:50 Drug: Phenergan 6.25 mg Route: IVP; Site: right hand; tw2 11:20 Follow up: Response: No adverse reaction; Nausea is decreased tw2 10:52 Drug: Valium 5 mg Route: IVP; Site: right hand; tw2 12:19 Follow up: Response: No adverse reaction tw2 12:17 Drug: cloNIDine 0.1 mg Route: PO; tw2 13:06 Follow up: Response: No adverse reaction; Blood pressure is lowered tw2 13:06 Drug: Phenergan 6.25 mg Route: IVP; Site: right hand; tw2 13:58 Follow up: Response: No adverse reaction tw2 13:06 Drug: Valium 5 mg Route: PO; tw2 13:58 Follow up: Response: No adverse reaction tw2 13:43 Not Given (Patient Refused): Tylenol 1000 mg PO once tw2 13:50 Drug: Tylenol 1000 mg Route: PO; tw2 13:58 Follow up: Response: No adverse reaction tw2 13:50 Drug: Zofran 4 mg Route: IVP; Site: right hand; tw2 14:01 Follow up: Response: No adverse reaction; Nausea is decreased tw2 Disposition: 15:16 Co-signature as Attending Physician, Villa Byrd MD. rn Disposition: 11/02/18 12:58 Discharged to Home. Impression: Hypertensive urgency, Nausea and vomiting. - Condition is Stable. - Discharge Instructions: Hypertension, Nausea and Vomiting, Adult, Rehydration, Adult, Form - Blood Pressure Record Sheet. - Prescriptions for Clonidine 0.1 mg Oral Tablet - take 1 tablet by ORAL route 3 times per day; 30 tablet. Zofran 4 mg Oral Tablet - take 1 tablet by ORAL route every 12 hours As needed; 20 tablet. - Medication Reconciliation Form, Thank You Letter, Antibiotic Education, Prescription Opioid Use form. - Follow up: Private Physician; When: 1 - 2 days; Reason: Recheck today's complaints, Continuance of care, Re-evaluation by your physician. Follow up: Emergency Department; When: As needed; Reason: Worsening of condition. Signatures: Dispatcher [employer] EDMS Fawn Mathis, GUMMED TAPE PRESS OPERATOR-C GUMMED TAPE PRESS OPERATOR-Csnw Villa Byrd MD MD rn Wise, Tara, RN RN tw2 Corrections: (The following items were deleted from the chart) 14:04 12:58 11/02/2018 12:58 Discharged to Home. Impression: Hypertensive urgency; Nausea and tw2 vomiting. Condition is Stable. Forms are Medication Reconciliation Form, Thank You Letter, Antibiotic Education, Prescription Opioid Use. Follow up: Private Physician; When: 1 - 2 days; Reason: Recheck today's complaints, Continuance of care, Re-evaluation by your physician. Follow up: Emergency Department; When: As needed; Reason: Worsening of condition. snw
[2018-11-02] MEDS ORDERED: DIAZEPAM 5 MG TABLET ONE (13:03)
[2018-11-02] MEDS ORDERED: ACETAMINOPHEN 500 MG TAB ONE (13:43)
== END 2018-11-02 14:04 | disposition home or self-care (01) ==
LOC: ER 09:57
DX: I16.0 Hypertensive urgency (principal); I10 Essential (primary) hypertension; E11.9 Type 2 diabetes mellitus without complications; F32.9 Major depressive disorder, single episode, unspecified; E03.9 Hypothyroidism, unspecified; Z88.8 Allergy status to other drugs, medicaments and biological substances; Z98.82 Breast implant status
CPT/HCPCS: 93005; 85025; 80048; 36415; 80320; 83735; 85610; 80076; 80307 ×8; 84443; 84484; 83880; 70450; 71275; 74175; 71045; Q9967; J2550 ×2; J3360; J7030; J2405 ×2; 81003; 81015; 96361; 96365; 96375; 99284

== ENCOUNTER 2019-03-07 10:22 | Emergency (ER) | payer OTHER ==
--- OUTSIDE RECORDS SUMMARY | 2019-03-07 10:26 | XMS REPORT ---
:1960 [facility] Address [address] [place] [address] Dr. Vasquez [address] [place] [id number] Care Team Providers Name Role Phone Unavailable Unavailable Unavailable Problems This patient has no known problems. Allergies, Adverse Reactions, Alerts This patient has no known allergies or adverse reactions. Medications This patient has no known medications.
[2019-03-07] MEDS ORDERED: HYDRALAZINE HCL 20 MG/ML VIAL ONE (10:47)
[2019-03-07] MEDS ORDERED: MORPHINE 4 MG/ML SYR ONE (11:07)
[2019-03-07] MEDS ORDERED: ONDANSETRON 4 MG/2 ML VIAL ONE (11:07)
[2019-03-07] MEDS ORDERED: NA CHLORIDE 0.9% 1,000 ML ONE (11:07)
[2019-03-07 11:13] LABS: Absolute Lymphocytes (CBC) 3.7 K/uL (0.7-4.9); Basophils % 0.6 % (0-1.3); Hematocrit 44.2 % (36.0-45.0); Lymphocytes % 31.4 % (15.3-44.8); MPV 8.5 fL (7.6-11.3); RBC Red Blood Cell Count 5.04 M/uL (3.86-4.86)
[2019-03-07 11:19] LABS: Protime INR 0.94
[2019-03-07 11:20] LABS: Urine Blood NEGATIVE (NEG); Urine Glucose NEGATIVE (NEG); Urine Protein TRACE (NEG); Urine pH 8.5 (5.0-7.0)
[2019-03-07 11:30] LABS: ALT/SGPT 57 U/L (12-78); AST/SGOT 28 U/L (15-37); Albumin 4.1 g/dL (3.4-5.0); Alkaline Phosphatase 112 U/L (45-117); BUN Blood Urea Nitrogen 15 mg/dL (7-18); Bicarbonate 31 mmol/L (21-32); Bilirubin Direct < 0.1 mg/dL (0-0.2); Bilirubin Total 0.2 mg/dL (0.2-1.0); Glucose Level 118 mg/dL (74-106); Lipase 94 U/L (73-393); Potassium 3.9 mmol/L (3.5-5.1); Protein, Total 7.4 g/dL (6.4-8.2); Sodium Level 141 mmol/L (136-145)
--- NOTE | 2019-03-07 11:37 | EKG ---
Test Date: 2019-03-07 Test Time: 11:04:04 Cyber Incident Analyst: MICHELINE MEASUREMENT RESULTS: Intervals: Rate: 79 SD: 164 QRSD: 90 QT: 394 QTc: 451 [place]: P: 59 SD: 164 QRS: 49 T: 71 INTERPRETIVE STATEMENTS: Normal sinus rhythm Normal ECG Compared to ECG 11/02/2018 10:13:46 No significant changes Electronically Signed On 03-07-19 11:36:45 FIREWORKS ASSEMBLER by Hamlet Perea
--- NOTE | 2019-03-07 12:24 | ER ---
Nurse's Notes [facility] Name: Jaimie Amanda Age: 58 yrs Sex: Female : 1960 Arrival Date: 03/07/2019 Time: 10:25 Bed 18 Private MD: Diagnosis: Right upper quadrant abdominal tenderness Presentation: 03/07 10:27 Presenting complaint: Patient states: I was in MRI for my liver just having abd pain sg that is not getting any better, reports having some N/V, reports being unable to take the blood pressure medication due to vomiting. Transition of care: patient was not received from another setting of care. Onset of symptoms was March 07, 2019. Risk Assessment: Do you want to hurt yourself or someone else? Patient reports no desire to harm self or others. Initial Sepsis Screen: Does the patient meet any 2 criteria? No. Patient's initial sepsis screen is negative. Does the patient have a suspected source of infection? Yes: Acute abdominal pain. Care prior to arrival: None. 10:27 Method Of Arrival: Ambulatory sg 10:27 Acuity: ZHEN 3 sg Triage Assessment: 10:40 General: Appears uncomfortable, Behavior is cooperative. tw2 Historical: - Allergies: 10:30 Nitroglycerin; sg - PMHx: 10:30 Anxiety; Depression; Diabetes - NIDDM; etoh abuse; Hypertension; Hypothyroidism; sg Seizures; - PSHx: 10:30 Thyroidectomy; Hernia repair; breast implants; sg - Immunization history:: Adult Immunizations up to date. - Social history:: Smoking status: Patient/guardian denies using tobacco. - Ebola Screening: : Patient negative for fever greater than or equal to 101.5 degrees Fahrenheit, and additional compatible Ebola Virus Disease symptoms Patient denies exposure to infectious person Patient denies travel to an Ebola-affected area in the 21 days before illness onset No symptoms or risks identified at this time. Screenin:26 Abuse screen: Denies threats or abuse. Nutritional screening: No deficits noted. tw2 Tuberculosis screening: No symptoms or risk factors identified. Fall Risk None identified. Assessment: 10:40 General: Appears uncomfortable, Behavior is anxious. Pain: Complains of pain in tw2 abdomen. Neuro: Level of Consciousness is awake, alert, obeys commands, Oriented to person, place, time, situation. Cardiovascular: Heart tones S1 S2 Patient's skin is warm and dry. Respiratory: Airway is patent Respiratory effort is even, unlabored, Respiratory pattern is regular, symmetrical, Breath sounds are clear bilaterally. GI: Abdomen is flat, Bowel sounds present X 4 quads. Abd is soft Reports lower abdominal pain, upper abdominal pain, nausea. : No signs and/or symptoms were reported regarding the genitourinary system. EENT: No signs and/or symptoms were reported regarding the EENT system. Derm: No signs and/or symptoms reported regarding the dermatologic system. Musculoskeletal: Range of motion: intact in all extremities. 11:54 Reassessment: No changes from previously documented assessment. Patient and/or family tw2 updated on plan of care and expected duration. Pain level reassessed. 12:15 Reassessment: spoke with pts mother at #[phone], she will come get pt for a ride tw2 home at this time. 12:26 Reassessment: No changes from previously documented assessment. Patient and/or family tw2 updated on plan of care and expected duration. Pain level reassessed. Vital Signs: 10:30 BP 215 / 105; Pulse 86; Resp 17; Temp 97.0; Pulse Ox 100% on R/A; Pain 8/10; sg 11:12 BP 189 / 79; Pulse 79; Resp 17; Pulse Ox 97% on R/A; tw2 11:53 BP 187 / 75; Pulse 74; Resp 17; Pulse Ox 97% on R/A; tw2 12:25 BP 181 / 81; Pulse 70; Resp 17; Pulse Ox 99% on R/A; tw2 ED Course: 10:25 Patient arrived in ED. mr 10:29 Triage completed. sg 10:30 Arm band placed on. sg 10:41 Paras Naik PA is PHCP. jr8 10:41 Diego Ramirez MD is Attending Physician. jr8 10:42 Maddy Prieto RN is Primary Nurse. tw2 10:55 Inserted saline lock: 22 gauge in left antecubital area, using aseptic technique. Blood tw2 collected. 10:57 Patient has correct armband on for positive identification. Bed in low position. Call mh5 light in reach. Side rails up X 1. Adult w/ patient. Pulse ox on. NIBP on. 11:13 EKG done, by quality control technician. reviewed by Diego Ramirez MD. at1 12:22 Arsenio Smith MD is Referral Physician. jr8 12:27 No provider procedures requiring assistance completed. IV discontinued, intact, tw2 bleeding controlled, No redness/swelling at site. Pressure dressing applied. Administered Medications: 10:58 Drug: hydrALAZINE 10 mg Route: IV; Rate: calculated rate; Site: left antecubital; tw2 11:06 Drug: Zofran 4 mg Route: IVP; Site: left antecubital; tw2 12:28 Follow up: Response: No adverse reaction; Nausea is decreased tw2 11:08 Drug: NS 0.9% 1000 ml Route: IV; Rate: 1000 ml; Site: left antecubital; tw2 11:10 Drug: morphine 4 mg Route: IVP; Site: left antecubital; tw2 12:28 Follow up: Response: No adverse reaction; Pain is decreased tw2 Outcome: 12:22 Discharge ordered by . jr8 12:28 Patient left the ED. tw2 12:28 Discharged to home ambulatory, with family. tw2 12:28 Condition: stable 12:28 Discharge instructions given to patient, family, Instructed on discharge instructions, follow up and referral plans. Demonstrated understanding of instructions, follow-up care. Signatures: Kush Segovia, RN Radha Chen Josh, PA PA jr8 Elisa Oliva, farmworker fruit EKG Tat1 Maddy Prieto RN RN 2 Angelica Marley [facility]
--- NOTE | 2019-03-07 12:24 | EDPHYS ---
Physician Documentation [facility] Name: Jaimie Amanda Age: 58 yrs Sex: Female : 1960 Arrival Date: 03/07/2019 Time: 10:25 Bed 18 Private MD: ED Physician Diego Ramirez HPI: 03/07 11:16 This 58 yrs old Female presents to ER via Ambulatory with complaints of jr8 Abdominal Pain. 11:16 The patient presents with abdominal pain in the right upper quadrant. Onset: The jr8 symptoms/episode began/occurred gradually, 1 month(s) ago. The symptoms do not radiate. Associated signs and symptoms: Pertinent positives: nausea and vomiting. The symptoms are described as steady. Modifying factors: The symptoms are alleviated by nothing, the symptoms are aggravated by food. Severity of pain: At its worst the pain was moderate in the emergency department the pain is unchanged. The patient has not experienced similar symptoms in the past. The patient has been recently seen by a physician:. Patient currently being worked up by Dr. Smith for potential cirrhosis of the liver and lesions that were found. Stated that she was having and MRI of the abdomen today. After having the MRI stated that her abdominal pain worsened and was brought over to ED at that time for further evaluation . Historical: - Allergies: 10:30 Nitroglycerin; sg - PMHx: 10:30 Anxiety; Depression; Diabetes - NIDDM; etoh abuse; Hypertension; Hypothyroidism; sg Seizures; - PSHx: 10:30 Thyroidectomy; Hernia repair; breast implants; sg - Immunization history:: Adult Immunizations up to date. - Social history:: Smoking status: Patient/guardian denies using tobacco. - Ebola Screening: : Patient negative for fever greater than or equal to 101.5 degrees Fahrenheit, and additional compatible Ebola Virus Disease symptoms Patient denies exposure to infectious person Patient denies travel to an Ebola-affected area in the 21 days before illness onset No symptoms or risks identified at this time. ROS: 11:16 Eyes: Negative for injury, pain, redness, and discharge, ENT: Negative for injury, jr8 pain, and discharge, Neck: Negative for injury, pain, and swelling, Cardiovascular: Negative for chest pain, palpitations, and edema, Respiratory: Negative for shortness of breath, cough, wheezing, and pleuritic chest pain, Back: Negative for injury and pain, MS/Extremity: Negative for injury and deformity, Skin: Negative for injury, rash, and discoloration, Neuro: Negative for headache, weakness, numbness, tingling, and seizure. 11:16 Abdomen/GI: Positive for abdominal pain, nausea and vomiting, Negative for diarrhea, abdominal distension, anorexia, dysphagia, hematemesis, black/tarry stool, rectal pain, rectal bleeding, bowel incontinence, flatulence. Exam: 11:16 Eyes: Pupils equal round and reactive to light, extra-ocular motions intact. Lids and jr8 lashes normal. Conjunctiva and sclera are non-icteric and not injected. Cornea within normal limits. Periorbital areas with no swelling, redness, or edema. ENT: Nares patent. No nasal discharge, no septal abnormalities noted. Tympanic membranes are normal and external auditory canals are clear. Oropharynx with no redness, swelling, or masses, exudates, or evidence of obstruction, uvula midline. Mucous membranes moist. Neck: Trachea midline, no thyromegaly or masses palpated, and no cervical lymphadenopathy. Supple, full range of motion without nuchal rigidity, or vertebral point tenderness. No Meningismus. Cardiovascular: Regular rate and rhythm with a normal S1 and S2. No gallops, murmurs, or rubs. Normal PMI, no JVD. No pulse deficits. Respiratory: Lungs have equal breath sounds bilaterally, clear to auscultation and percussion. No rales, rhonchi or wheezes noted. No increased work of breathing, no retractions or nasal flaring. Abdomen/GI: Soft, non-tender, with normal bowel sounds. No distension or tympany. No guarding or rebound. No evidence of tenderness throughout. Back: No spinal tenderness. No costovertebral tenderness. Full range of motion. Skin: Warm, dry with normal turgor. Normal color with no rashes, no lesions, and no evidence of cellulitis. MS/ Extremity: Pulses equal, no cyanosis. Neurovascular intact. Full, normal range of motion. Neuro: Awake and alert, GCS 15, oriented to person, place, time, and situation. Cranial nerves II-XII grossly intact. Motor strength 5/5 in all extremities. Sensory grossly intact. Cerebellar exam normal. Normal gait. Vital Signs: 10:30 BP 215 / 105; Pulse 86; Resp 17; Temp 97.0; Pulse Ox 100% on R/A; Pain 8/10; sg 11:12 BP 189 / 79; Pulse 79; Resp 17; Pulse Ox 97% on R/A; tw2 11:53 BP 187 / 75; Pulse 74; Resp 17; Pulse Ox 97% on R/A; tw2 12:25 BP 181 / 81; Pulse 70; Resp 17; Pulse Ox 99% on R/A; tw2 MDM: 10:41 Patient medically screened. jr8 12:04 Differential diagnosis: cholecystitis, Cholelithiasis, Hepatitis, non-specific abd jr8 pain, pancreatitis, Peptic Ulcer Disease, colitis, cholangitis, cirrhosis of the liver. Data reviewed: vital signs, nurses notes, old medical records, lab test result(s), radiologic studies, MRI. Data interpreted: Pulse oximetry: on room air is 97 %. Interpretation: normal. Counseling: I had a detailed discussion with the patient and/or guardian regarding: the historical points, exam findings, and any diagnostic results supporting the discharge/admit diagnosis, lab results, radiology results, the need for outpatient follow up, a comfort station supervisor, to return to the emergency department if symptoms worsen or persist or if there are any questions or concerns that arise at home. Response to treatment: the patient's symptoms have mildly improved after treatment. Special discussion: Based on the patient's Hx, exam, and Dx evaluation, there is no indication for emergent surgery or inpatient Tx. It is understood by the patient/guardian that if the Sx's persist or worsen they need to return immediately for re-evaluation. 03/07 10:41 Order name: Basic Metabolic Panel; Complete Time: 11:03/07 10:41 Order name: CBC with Diff; Complete Time: 11:16 03/07 10:41 Order name: Creatinine for Radiology; Complete Time: :03/07 10:41 Order name: Hepatic Function; Complete Time: :03/07 10:41 Order name: Lipase; Complete Time: :03/07 10:41 Order name: Protime (+inr); Complete Time: 11:49 03/07 10:41 Order name: Ptt, Activated; Complete Time: 11:49 03/07 10:41 Order name: AMMONIA; Complete Time: 11:49 8 03/07 10:55 Order name: Urine Dipstick--Ancillary (enter results); Complete Time: 11:23 03/07 10:55 Order name: Urine --Ancillary (enter results); Complete Time: 11:23 bd 03/07 10:41 Order name: IV Saline Lock; Complete Time: 11:12 8 03/07 10:41 Order name: Labs collected and sent; Complete Time: 11:12 8 03/07 10:50 Order name: EKG - Nurse/Tech; Complete Time: 11:59 jr8 03/07 10:50 Order name: EKG; Complete Time: 10:50 jr8 Administered Medications: 10:58 Drug: hydrALAZINE 10 mg Route: IV; Rate: calculated rate; Site: left antecubital; tw2 11:06 Drug: Zofran 4 mg Route: IVP; Site: left antecubital; tw2 12:28 Follow up: Response: No adverse reaction; Nausea is decreased tw2 11:08 Drug: NS 0.9% 1000 ml Route: IV; Rate: 1000 ml; Site: left antecubital; tw2 11:10 Drug: morphine 4 mg Route: IVP; Site: left antecubital; tw2 12:28 Follow up: Response: No adverse reaction; Pain is decreased tw2 Disposition: 03/07/19 12:22 Discharged to Home. Impression: Right upper quadrant abdominal tenderness. - Condition is Stable. - Discharge Instructions: Abdominal Pain, Adult. - Medication Reconciliation Form, Thank You Letter, Antibiotic Education, Prescription Opioid Use form. - Follow up: Arsenio Smith MD; When: 2 - 3 days; Reason: Recheck today's complaints, Continuance of care, Re-evaluation by your physician. - Problem is new. - Symptoms have improved. Addendum: 03/14/2019 07:23 Co-signature as Attending Physician, Diego Ramirez MD I agree with the assessment and c cordero plan of care. Signatures: Dispatcher [employer] Kush Renteria, RN Diego Dunn MD MD cha Roszak, Josh, PA PA jr8 Maddy Prieto RN RN tw2 Corrections: (The following items were deleted from the chart) 03/07 12:28 12:22 03/07/2019 12:22 Discharged to Home. Impression: Right upper quadrant abdominal tw2 tenderness. Condition is Stable. Forms are Medication Reconciliation Form, Thank You Letter, Antibiotic Education, Prescription Opioid Use. Follow up: Arsenio Smith; When: 2 - 3 days; Reason: Recheck today's complaints, Continuance of care, Re-evaluation by your physician. Problem is new. Symptoms have improved. jr8
[2019-03-07 12:40] VITALS: TEMP 97
[2019-03-07 12:44] VITALS: BP 181/81; O2SAT 99
== END 2019-03-07 12:28 | disposition home or self-care (01) ==
LOC: ER 10:22
DX: R10.811 Right upper quadrant abdominal tenderness (principal); I10 Essential (primary) hypertension; Z98.82 Breast implant status
CPT/HCPCS: 93005; 85025; 80048; 36415; 82140; 81025; 85610; 80076; 85730; 81003; 83690; 96375; 96374; 99284; J0360; J7030; J2405

== ENCOUNTER 2019-03-10 08:39 | Emergency (ER) | payer OTHER ==
--- OUTSIDE RECORDS SUMMARY | 2019-03-10 08:48 | XMS REPORT ---
:1960 [facility] Address [address] [place] [address] Dr. Vasquez [address] [place] [id number] Care Team Providers Name Role Phone Unavailable Unavailable Unavailable Problems This patient has no known problems. Allergies, Adverse Reactions, Alerts This patient has no known allergies or adverse reactions. Medications This patient has no known medications.
[2019-03-10 09:19] LABS: Absolute Lymphocytes (CBC) 2.9 K/uL (0.7-4.9); Basophils % 0.4 % (0-1.3); Hematocrit 42.7 % (36.0-45.0); MPV 8.1 fL (7.6-11.3); RBC Red Blood Cell Count 4.86 M/uL (3.86-4.86)
[2019-03-10 09:33] LABS: Albumin 4.3 g/dL (3.4-5.0); Bilirubin Direct 0.1 mg/dL (0-0.2); Bilirubin Total 0.3 mg/dL (0.2-1.0); Potassium 3.7 mmol/L (3.5-5.1); Protein, Total 7.5 g/dL (6.4-8.2)
[2019-03-10] MEDS ORDERED: MORPHINE 4 MG/ML SYR ONE (09:38)
[2019-03-10] MEDS ORDERED: ONDANSETRON 4 MG/2 ML VIAL ONE (09:38)
--- NOTE | 2019-03-10 09:49 | RAD REPORT ---
EXAM DESCRIPTION: US - Abdomen Exam Limited - 03/10/2019 9:31 am CLINICAL HISTORY: ABD PAIN COMPARISON: Abdomen WWo Cont dated 03/07/2019 FINDINGS: No gallstones are identified. Small focus of cholesterolosis noted in the gallbladder wall . This is not of acute clinical significance. No suspicious wall thickening or mass. No pericholecyst ic fluid. No common duct stone or biliary tree dilatation identified. IMPRESSION: Gallbladder and biliary tree examination shows no significant finding.
--- NOTE | 2019-03-10 10:24 | RAD REPORT ---
EXAM DESCRIPTION: CT - Abdomen Pelvis W Contrast - 03/10/2019 10:02 am CLINICAL HISTORY: Abdominal pain COMPARISON: none. TECHNIQUE: Computed axial tomography of the abdomen pelvis was obtained. 100 cc Isovue-300 was admin istered intravenously. Oral contrast was not requested which limits evaluation of bowel. All CT scans are performed using dose optimization technique as appropriate and may include automated exposure control or mA/KV adjustment according to patient size. FINDINGS: Subcentimeter hepatic cysts are unchanged Spleen, pancreas, adrenal and kidneys appear unremarkable. There is no evidence of diverticulitis. Normal appendix. Small hiatal hernia IMPRESSION: No acute abnormality is displayed.
[2019-03-10] MEDS ORDERED: cloNIDine HCL 0.1 MG TAB ONE (10:39)
[2019-03-10] MEDS ORDERED: FENTANYL CITR 100 MCG/2 ML ONE (10:40)
--- NOTE | 2019-03-10 11:30 | ER ---
Nurse's Notes [facility] Name: Jaimie Amanda Age: 58 yrs Sex: Female : 1960 Arrival Date: 03/10/2019 Time: 08:41 Bed 16 Private MD: Diagnosis: Upper abdominal pain, unspecified;Nausea and vomiting Presentation: 03/10 08:50 Presenting complaint: Patient states: abdominal pain, nausea vomiting. vomiting since December, pain to abdomen since 2 days before [place]. Transition of care: patient was not received from another setting of care. Onset of symptoms was December 2018. Risk Assessment: Do you want to hurt yourself or someone else? Patient reports no desire to harm self or others. Initial Sepsis Screen: Does the patient meet any 2 criteria? No. Patient's initial sepsis screen is negative. Does the patient have a suspected source of infection? No. Patient's initial sepsis screen is negative. Care prior to arrival: None. 08:50 Method Of Arrival: Ambulatory 08:50 Acuity: ZHEN 3 ch Triage Assessment: 11:55 General: Appears in no apparent distress. uncomfortable, Behavior is cooperative, ch appropriate for age. Historical: - Allergies: 08:53 Nitroglycerin; ch - Home Meds: 08:53 clonidine HCl 0.1 mg Oral tab 1 tab 3 times per day [Active]; ch 09:12 hydroxyzine HCl 50 mg Oral tab 1 tab BID PRN [Active]; levothyroxine 137 mcg tab 1 tab ch once daily [Active]; Linzess 290 mcg Oral cap 1 cap once daily [Active]; liothyronine 5 mcg Oral tab 1 tab once daily [Active]; losartan-hydrochlorothiazide 100-25 mg Oral tab 1 tab once daily [Active]; metformin 500 mg Oral tab 1 tab 2 times per day [Active]; naltrexone 50 mg Oral tab 1 tab once daily [Active]; omeprazole 40 mg Oral cpDR 1 cap once daily [Active]; oxcarbazepine 600 mg Oral tab 1 am and 2 pm [Active]; oxybutynin chloride 5 mg Oral tab 1 tab 2 times per day [Active]; paroxetine HCl 40 mg Oral tab 1 tab once daily [Active]; trazodone 100 mg Oral tab 1 tab nightly [Active]; - PMHx: 08:53 Anxiety; Depression; Diabetes - NIDDM; etoh abuse; Hypertension; Hypothyroidism; ch Seizures; - PSHx: 09:12 Thyroidectomy; Hernia repair; breast implants; ch - Immunization history:: Adult Immunizations up to date. - Social history:: Smoking status: Patient uses tobacco products, denies chronic smoking, but will smoke occasionally, Patient/guardian denies using alcohol, street drugs. - Ebola Screening: : Patient negative for fever greater than or equal to 101.5 degrees Fahrenheit, and additional compatible Ebola Virus Disease symptoms Patient denies exposure to infectious person Patient denies travel to an Ebola-affected area in the 21 days before illness onset No symptoms or risks identified at this time. Screenin:13 Abuse screen: Denies threats or abuse. Denies injuries from another. Nutritional ch screening: No deficits noted. Tuberculosis screening: No symptoms or risk factors identified. Fall Risk None identified. Assessment: 09:13 Pain: Complains of pain in abdomen. Neuro: Level of Consciousness is awake, alert, ch obeys commands. Cardiovascular: Heart tones S1 S2 present. Respiratory: Airway is patent Respiratory effort is even, unlabored, Breath sounds are clear bilaterally. GI: Abdomen is round non-distended, Bowel sounds present X 4 quads. Abd is soft and non tender X 4 quads. Reports lower abdominal pain, upper abdominal pain, nausea, vomiting. : No signs and/or symptoms were reported regarding the genitourinary system. Derm: Skin is intact, Skin is dry, Skin is jaundiced. 09:46 Reassessment: Patient appears in no apparent distress at this time. No changes from previously documented assessment. Patient and/or family updated on plan of care and expected duration. Pain level reassessed. pt medicated for pain, will wait and recheck bp in 15 min. 10:48 Reassessment: Patient appears in no apparent distress at this time. Patient and/or ch family updated on plan of care and expected duration. Pain level reassessed. pt states she hurts in her stomach very badly still. states she wants to know why she hurts and she cannot go home in this much pain. 11:40 Reassessment: Patient appears in no apparent distress at this time. Patient and/or ch family updated on plan of care and expected duration. Pain level reassessed. Patient states feeling better. Patient states symptoms have improved. Vital Signs: 09:04 BP 180 / 99; Pulse 72; Resp 20; Temp 98.5; Pulse Ox 99% on R/A; Pain 9/10; ch 09:46 BP 186 / 106; Pulse 78; Resp 17; Temp 98.9; Pulse Ox 99% on R/A; Pain 9/10; ch 10:35 BP 196 / 108; Pulse 71; Resp 16; Temp 98.3; Pulse Ox 99% on R/A; Pain 9/10; ch 11:40 BP 170 / 83; Pulse 68; Resp 14; Temp 98.3(O); Pulse Ox 99% on R/A; Pain 7/10; ch ED Course: 08:41 Patient arrived in ED. as 08:41 Emma Hussein [facility]C [facility]. kb 08:41 Tera Raymond MD is Attending Physician. kb 08:50 Anyi Mobley, CATY is Primary Nurse. ch 08:51 Triage completed. ch 09:04 Inserted saline lock: 20 gauge in left antecubital area, using aseptic technique. Blood ch collected. 09:12 Arm band placed on left wrist. Patient placed in an exam room, on a stretcher, on pulse ch oximetry. 09:13 No provider procedures requiring assistance completed. ch 09:13 Patient has correct armband on for positive identification. Bed in low position. Call light in reach. Side rails up X 1. Adult w/ patient. Pulse ox on. NIBP on. 09:33 US Abdomen Limited In Process Unspecified. EDMS 09:38 Ultrasound completed. hr 10:06 CT Abd/Pelvis - IV Contrast Only In Process Unspecified. EDMS 10:35 Warm blanket given. ch 11:40 IV discontinued, intact, bleeding controlled, No redness/swelling at site. Pressure ch dressing applied. Administered Medications: 09:44 Drug: Zofran 4 mg Route: IVP; Site: left antecubital; ch 09:46 Drug: morphine 4 mg Route: IVP; Site: left antecubital; ch 10:38 Drug: fentaNYL (PF) 50 mcg Route: IVP; Site: left antecubital; ch 10:40 Drug: cloNIDine 0.2 mg Route: PO; ch Outcome: 11:28 Discharge ordered by . kb 11:40 Discharged to home ambulatory, with family. ch 11:40 Condition: stable 11:40 Discharge instructions given to patient, family, friend, Instructed on discharge instructions, follow up and referral plans. medication usage, Demonstrated understanding of instructions, follow-up care, medications, Prescriptions given X 3. 11:42 Patient left the ED. Signatures: Dispatcher [employer] EDMS Emma Hussein, Anyi Bradford, Trisha Holder RN, ch, Amelia as
--- NOTE | 2019-03-10 11:31 | EDPHYS ---
Physician Documentation [facility] Name: Jaimie Amanda Age: 58 yrs Sex: Female : 1960 Arrival Date: 03/10/2019 Time: 08:41 Bed 16 Private MD: ED Physician Tera Raymond HPI: 03/10 11:33 This 58 yrs old Female presents to ER via Ambulatory with complaints of kb Abdominal Pain. 11:33 The patient presents with abdominal pain. Onset: The symptoms/episode began/occurred 1 kb week(s) ago. The symptoms do not radiate. Associated signs and symptoms: Pertinent positives: nausea and vomiting. The symptoms are described as constant. Modifying factors: The symptoms are alleviated by nothing, the symptoms are aggravated by food. Severity of pain: At its worst the pain was moderate in the emergency department the pain is unchanged. The patient has experienced similar episodes in the past. The patient has been recently seen by a physician: The patient has been recently seen at the [facility] Emergency Department. 11:34 Pt reports RUQ pain that started before . States she had a MRI on Thursday kb ordered by Dr Smith and then came to the ER because her pain got worse. Reports she hasn't felt any better since then. Reports vomiting since December. Historical: - Allergies: 08:53 Nitroglycerin; ch - Home Meds: 08:53 clonidine HCl 0.1 mg Oral tab 1 tab 3 times per day [Active]; ch 09:12 hydroxyzine HCl 50 mg Oral tab 1 tab BID PRN [Active]; levothyroxine 137 mcg tab 1 tab ch once daily [Active]; Linzess 290 mcg Oral cap 1 cap once daily [Active]; liothyronine 5 mcg Oral tab 1 tab once daily [Active]; losartan-hydrochlorothiazide 100-25 mg Oral tab 1 tab once daily [Active]; metformin 500 mg Oral tab 1 tab 2 times per day [Active]; naltrexone 50 mg Oral tab 1 tab once daily [Active]; omeprazole 40 mg Oral cpDR 1 cap once daily [Active]; oxcarbazepine 600 mg Oral tab 1 am and 2 pm [Active]; oxybutynin chloride 5 mg Oral tab 1 tab 2 times per day [Active]; paroxetine HCl 40 mg Oral tab 1 tab once daily [Active]; trazodone 100 mg Oral tab 1 tab nightly [Active]; - PMHx: 08:53 Anxiety; Depression; Diabetes - NIDDM; etoh abuse; Hypertension; Hypothyroidism; ch Seizures; - PSHx: 09:12 Thyroidectomy; Hernia repair; breast implants; ch - Immunization history:: Adult Immunizations up to date. - Social history:: Smoking status: Patient uses tobacco products, denies chronic smoking, but will smoke occasionally, Patient/guardian denies using alcohol, street drugs. - Ebola Screening: : Patient negative for fever greater than or equal to 101.5 degrees Fahrenheit, and additional compatible Ebola Virus Disease symptoms Patient denies exposure to infectious person Patient denies travel to an Ebola-affected area in the 21 days before illness onset No symptoms or risks identified at this time. ROS: 11:27 Constitutional: Negative for fever, chills, and weight loss, ENT: Negative for injury, kb pain, and discharge, Neck: Negative for injury, pain, and swelling, Cardiovascular: Negative for chest pain, palpitations, and edema, Respiratory: Negative for shortness of breath, cough, wheezing, and pleuritic chest pain, Back: Negative for injury and pain, MS/Extremity: Negative for injury and deformity, Skin: Negative for injury, rash, and discoloration, Neuro: Negative for headache, weakness, numbness, tingling, and seizure. 11:27 Abdomen/GI: Positive for abdominal pain, nausea and vomiting. Exam: 11:28 Constitutional: This is a well developed, well nourished patient who is awake, alert, kb and in no acute distress. Head/Face: Normocephalic, atraumatic. ENT: Nares patent. No nasal discharge, no septal abnormalities noted. Tympanic membranes are normal and external auditory canals are clear. Oropharynx with no redness, swelling, or masses, exudates, or evidence of obstruction, uvula midline. Mucous membranes moist. Neck: Trachea midline, no thyromegaly or masses palpated, and no cervical lymphadenopathy. Supple, full range of motion without nuchal rigidity, or vertebral point tenderness. No Meningismus. Chest/axilla: Normal chest wall appearance and motion. Nontender with no deformity. No lesions are appreciated. Cardiovascular: Regular rate and rhythm with a normal S1 and S2. No gallops, murmurs, or rubs. Normal PMI, no JVD. No pulse deficits. Respiratory: Lungs have equal breath sounds bilaterally, clear to auscultation and percussion. No rales, rhonchi or wheezes noted. No increased work of breathing, no retractions or nasal flaring. Skin: Warm, dry with normal turgor. Normal color with no rashes, no lesions, and no evidence of cellulitis. MS/ Extremity: Pulses equal, no cyanosis. Neurovascular intact. Full, normal range of motion. Neuro: Awake and alert, GCS 15, oriented to person, place, time, and situation. Cranial nerves II-XII grossly intact. Motor strength 5/5 in all extremities. Sensory grossly intact. Cerebellar exam normal. Normal gait. 11:28 Abdomen/GI: Inspection: abdomen appears normal, Bowel sounds: normal, in all quadrants, Palpation: soft, in all quadrants, moderate abdominal tenderness, in the right upper quadrant. Vital Signs: 09:04 BP 180 / 99; Pulse 72; Resp 20; Temp 98.5; Pulse Ox 99% on R/A; Pain 9/10; ch 09:46 BP 186 / 106; Pulse 78; Resp 17; Temp 98.9; Pulse Ox 99% on R/A; Pain 9/10; ch 10:35 BP 196 / 108; Pulse 71; Resp 16; Temp 98.3; Pulse Ox 99% on R/A; Pain 9/10; ch 11:40 BP 170 / 83; Pulse 68; Resp 14; Temp 98.3(O); Pulse Ox 99% on R/A; Pain 7/10; ch MDM: 08:44 Patient medically screened. kb 11:28 Data reviewed: vital signs, nurses notes. Data interpreted: Pulse oximetry: on room air kb is 99 %. Interpretation: normal. 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 11:33 ED course: Pt will follow up with Dr Smith for continuity of care. . kb 03/10 08:53 Order name: Basic Metabolic Panel; Complete Time: 09:34 ch 03/10 08:53 Order name: CBC with Diff; Complete Time: 09:28 ch 03/10 08:53 Order name: Hepatic Function; Complete Time: 09:34 ch 03/10 08:53 Order name: Lipase; Complete Time: 09:34 ch 03/10 09:05 Order name: US Abdomen Limited; Complete Time: 09:54 kb 03/10 09:36 Order name: CT Abd/Pelvis - IV Contrast Only; Complete Time: 10:41 kb 03/10 08:53 Order name: IV Saline Lock; Complete Time: 09:15 ch 03/10 08:53 Order name: Labs collected and sent; Complete Time: 09:15 ch Administered Medications: 09:44 Drug: Zofran 4 mg Route: IVP; Site: left antecubital; ch 09:46 Drug: morphine 4 mg Route: IVP; Site: left antecubital; ch 10:38 Drug: fentaNYL (PF) 50 mcg Route: IVP; Site: left antecubital; ch 10:40 Drug: cloNIDine 0.2 mg Route: PO; Disposition: 16:29 Co-signature as Attending Physician, Tera Raymond MD I agree with the assessment and kdr plan of care. Disposition: 03/10/19 11:28 Discharged to Home. Impression: Upper abdominal pain, unspecified, Nausea and vomiting. - Condition is Stable. - Discharge Instructions: Nausea and Vomiting, Adult, [id number], Abdominal Pain, Adult, [id number]. - Prescriptions for Bentyl 20 mg Oral Tablet - take 1 tablet by ORAL route every 6 hours As needed; 20 tablet. Zofran 4 mg Oral Tablet - take 1 tablet by ORAL route every 6 hours As needed; 20 tablet. Diclofenac Sodium 75 mg Oral Tablet, Delayed Release (E.C.) - take 1 tablet by ORAL route 2 times per day As needed; 30 tablet. - Medication Reconciliation Form, Thank You Letter, Antibiotic Education, Prescription Opioid Use form. - Follow up: Emergency Department; When: As needed; Reason: Worsening of condition. Follow up: Private Physician; When: 2 - 3 days; Reason: Recheck today's complaints, Continuance of care, Re-evaluation by your physician. Signatures: Dispatcher [employer] Emma Navarrete, EDUARDO-C CREATIVE SERVICES SPECIALIST-Anyi Reece, RN RN Tera Raymond MD MD [facility] Corrections: (The following items were deleted from the chart) 11:42 11:28 03/10/2019 11:28 Discharged to Home. Impression: Upper abdominal pain, ch unspecified; Nausea and vomiting. Condition is Stable. Forms are Medication Reconciliation Form, Thank You Letter, Antibiotic Education, Prescription Opioid Use. Follow up: Emergency Department; When: As needed; Reason: Worsening of condition. Follow up: Private Physician; When: 2 - 3 days; Reason: Recheck today's complaints, Continuance of care, Re-evaluation by your physician. kb
[2019-03-10 11:50] VITALS: O2SAT 99
[2019-03-10 11:53] VITALS: TEMP 98.3
[2019-03-10 11:55] VITALS: BP 170/83
== END 2019-03-10 11:42 | disposition home or self-care (01) ==
LOC: ER 08:39
DX: R11.2 Nausea with vomiting, unspecified (principal); I10 Essential (primary) hypertension; E11.9 Type 2 diabetes mellitus without complications; F41.9 Anxiety disorder, unspecified; F32.9 Major depressive disorder, single episode, unspecified; E03.9 Hypothyroidism, unspecified; G40.909 Epilepsy, unspecified, not intractable, without status epilepticus; Z72.0 Tobacco use; Z88.8 Allergy status to other drugs, medicaments and biological substances; Z98.82 Breast implant status
CPT/HCPCS: 85025; 80048; 36415; 80076; 83690; 74177; 76705; 96375; 96374; 99284; Q9967; J3010; J2405

== ENCOUNTER 2019-04-07 18:19 | Emergency (ER) | payer OTHER ==
--- OUTSIDE RECORDS SUMMARY | 2019-04-07 18:21 | XMS REPORT ---
:1960 [facility] Address [address] [place] [address] Dr. Vasquez [address] [place] [id number] Care Team Providers Name Role Phone Unavailable Unavailable Unavailable Problems This patient has no known problems. Allergies, Adverse Reactions, Alerts This patient has no known allergies or adverse reactions. Medications This patient has no known medications.
[2019-04-07] MEDS ORDERED: MORPHINE 4 MG/ML SYR ONE (19:25)
[2019-04-07] MEDS ORDERED: NA CHLORIDE 0.9% 1,000 ML ONE (19:25)
[2019-04-07] MEDS ORDERED: ONDANSETRON 4 MG/2 ML VIAL ONE ×2 (19:25→22:11)
[2019-04-07 20:12] LABS: Albumin 4.4 g/dL (3.4-5.0); Bilirubin Direct 0.1 mg/dL (0-0.2); Bilirubin Total 0.3 mg/dL (0.2-1.0); Potassium 3.8 mmol/L (3.5-5.1)
[2019-04-07 20:42] LABS: Absolute Lymphocytes (CBC) 3.3 K/uL (0.7-4.9); Basophils % 0.3 % (0-1.3); Hematocrit 40.8 % (36.0-45.0); Lymphocytes % 29.2 % (15.3-44.8); MPV 8.3 fL (7.6-11.3); RBC Red Blood Cell Count 4.63 M/uL (3.86-4.86)
[2019-04-07 21:58] LABS: Urine Blood NEGATIVE (NEG); Urine Glucose NEGATIVE (NEG); Urine Protein NEGATIVE (NEG); Urine pH 8.5 (5.0-7.0)
[2019-04-07] MEDS ORDERED: MEPERIDINE HCL 50 MG/ML ONE (22:03)
--- NOTE | 2019-04-07 22:56 | ER ---
Nurse's Notes [facility] Name: Jaimie Amanda Age: 58 yrs Sex: Female : 1960 Arrival Date: 04/07/2019 Time: 18:25 Bed 30 Private MD: Diagnosis: Abdominal and pelvic pain Presentation: 04/07 19:05 Presenting complaint: Patient states: Sharp pain on the RUQ and vomiting all day. ca1 Reports chills. Was here a couple of weeks ago. Supposed to do a test for the gall bladder, but is waiting on schedule. Transition of care: patient was not received from another setting of care. Onset of symptoms was April 07, 2019. Risk Assessment: Do you want to hurt yourself or someone else? Patient reports no desire to harm self or others. Initial Sepsis Screen: Does the patient meet any 2 criteria? No. Patient's initial sepsis screen is negative. Does the patient have a suspected source of infection? No. Patient's initial sepsis screen is negative. Care prior to arrival: None. 19:05 Method Of Arrival: Ambulatory ca1 19:05 Acuity: ZHEN 3 ca1 Historical: - Allergies: 19:10 Nitroglycerin; ca1 - PMHx: 19:10 Anxiety; Depression; Diabetes - NIDDM; etoh abuse; Hypertension; Hypothyroidism; ca1 Seizures; - PSHx: 19:10 Thyroidectomy; Hernia repair; breast implants; ca1 - Immunization history:: Adult Immunizations not up to date, Flu vaccine is not up to date. - Coronavirus screen:: The patient has NOT traveled to [place], [place], or [place] in the past 14 days. The patient has NOT had contact with known/suspected case of Coronavirus?. - Social history:: Smoking status: Patient reports the use of cigarette tobacco products, smokes one pack cigarettes per day. - Ebola Screening: : Patient negative for fever greater than or equal to 101.5 degrees Fahrenheit, and additional compatible Ebola Virus Disease symptoms Patient denies exposure to infectious person Patient denies travel to an Ebola-affected area in the 21 days before illness onset No symptoms or risks identified at this time. Screenin:00 Fall Risk IV access (20 points). mg2 21:49 Abuse screen: Denies threats or abuse. Denies injuries from another. Nutritional mg2 screening: No deficits noted. Tuberculosis screening: No symptoms or risk factors identified. Assessment: 19:15 General: Appears in no apparent distress. comfortable, Behavior is calm, cooperative. mg2 Pain: Complains of pain in abdomen Pain currently is 9 out of 10 on a pain scale. Quality of pain is described as aching, Pain began gradually. Neuro: Level of Consciousness is awake, alert, obeys commands, Oriented to person, place, time, situation. Cardiovascular: Capillary refill < 3 seconds Patient's skin is warm and dry. Respiratory: Airway is patent Respiratory effort is even, unlabored, Respiratory pattern is regular, symmetrical. GI: Abdomen is non-distended, Bowel sounds present X 4 quads. Abd is soft Reports upper abdominal pain, nausea, vomiting. : No signs and/or symptoms were reported regarding the genitourinary system. EENT: No signs and/or symptoms were reported regarding the EENT system. Derm: Skin is intact, is healthy with good turgor, Skin is pink, warm \T\ dry. normal. Musculoskeletal: Circulation, motion, and sensation intact. Capillary refill < 3 seconds. 20:00 Reassessment: Patient is alert, oriented x 3, equal unlabored respirations, skin vc warm/dry/pink. Patient states symptoms have improved. 21:00 Reassessment: Patient and/or family updated on plan of care and expected duration. Pain vc level reassessed. Patient is alert, oriented x 3, equal unlabored respirations, skin warm/dry/pink. 22:00 Reassessment: Patient complains of abdominal pain and nausea. Provider notified. vc 23:19 Reassessment: Patient is alert, oriented x 3, equal unlabored respirations, skin bb warm/dry/pink. pt verbalized understanding of and agrees to plan of care discharge instructions given pt ambulated with steady gait to exit accompanied by mother. Vital Signs: 19:10 BP 150 / 106; Pulse 105; Resp 17 S; Temp 99(O); Pulse Ox 95% on R/A; Weight 74.84 kg ca1 (R); Height 5 ft. 7 in. (170.18 cm) (R); Pain 9/10; 20:00 BP 193 / 105; Pulse 86; Resp 18; Pulse Ox 96% on R/A; vc 21:00 BP 189 / 102; Pulse 92; Resp 20; Pulse Ox 100% on R/A; vc 22:00 BP 185 / 98; Pulse 87; Resp 20; Pulse Ox 97% on R/A; vc 23:20 BP 184 / 90; Pulse 84; Resp 16 S; Pulse Ox 96% on R/A; Pain 7/10; bb 19:10 Body Mass Index 25.84 (74.84 kg, 170.18 cm) ca1 ED Course: 18:25 Patient arrived in ED. ag5 18:59 Hu Gardner FNP-C [facility] la1 18:59 Diego Ramirez MD is Attending Physician. la1 19:08 Triage completed. ca1 19:10 Arm band placed on right wrist. ca1 19:29 Hermann Andrade, RN is Primary Nurse. mg2 19:35 Inserted saline lock: 20 gauge in right antecubital area, using aseptic technique. mg2 Blood collected. 21:08 Primary Nurse role handed off by Hermann Andrade, RN vc 21:08 Yessica Murphy, RN is Primary Nurse. vc 21:43 CT Abd/Pelvis - IV Contrast Only In Process Unspecified. EDMS 21:50 Patient has correct armband on for positive identification. mg2 21:50 No provider procedures requiring assistance completed. mg2 23:22 IV discontinued, intact, bleeding controlled, No redness/swelling at site. Pressure bb dressing applied. Administered Medications: 19:44 Drug: Zofran 4 mg Route: IVP; Site: right antecubital; mg2 21:06 Follow up: Response: No adverse reaction vc 19:44 Drug: NS 0.9% 500 ml Route: IV; Rate: bolus; Site: right antecubital; mg2 19:45 Drug: morphine 4 mg Route: IVP; Site: right antecubital; mg2 21:06 Follow up: Response: No adverse reaction vc 22:05 Drug: Demerol 50 mg Route: IVP; Site: right antecubital; vc 23:11 Drug: [place] 10 mg-325 mg 1 tabs {Note: RASS 0.} Route: PO; bb 23:21 Follow up: Response: No adverse reaction; Medication administered at discharge. bb Outcome: 22:55 Discharge ordered by . la1 23:21 Discharged to home ambulatory, with family. bb 23:21 Condition: stable 23:21 Discharge instructions given to patient, Instructed on discharge instructions, follow up and referral plans. no driving heavy equipment, medication usage, Demonstrated understanding of instructions, follow-up care, medications, Prescriptions given X 2. 23:22 Patient left the ED. bb Signatures: Dispatcher [employer] EDMS Stephanie Peter RN RN bb Hu Gardner, SAP BASIS ADMINISTRATOR-C SAP BASIS ADMINISTRATOR-Cla1 Hermann Andrade RN RN mg2 Jenna Baugh RN RN ca1 Demetrius Lundy 5 Yessica Murphy RN RN vc
--- NOTE | 2019-04-07 22:57 | EDPHYS ---
Physician Documentation [facility] Name: Jaimie Amanda Age: 58 yrs Sex: Female : 1960 Arrival Date: 04/07/2019 Time: 18:25 Bed 30 Private MD: [facility] Physician Diego Ramirez HPI: 04/07 23:21 This 58 yrs old Female presents to ER via Ambulatory with complaints of la1 Abdominal Pain. 23:21 The patient presents with abdominal pain in the right upper quadrant. Onset: The la1 symptoms/episode began/occurred today. The symptoms do not radiate. Associated signs and symptoms: Pertinent positives: nausea and vomiting. The symptoms are described as sharp. Modifying factors: The symptoms are alleviated by nothing, the symptoms are aggravated by food, movement, touching the area. Severity of pain: At its worst the pain was moderate. The patient has experienced similar episodes in the past. Pt has been having RUQ pain on and off, had normal imaging and labs in the past and was just approved for a HIDA scan which she should be able to get scheduled tomorrow. Historical: - Allergies: 19:10 Nitroglycerin; ca1 - PMHx: 19:10 Anxiety; Depression; Diabetes - NIDDM; etoh abuse; Hypertension; Hypothyroidism; ca1 Seizures; - PSHx: 19:10 Thyroidectomy; Hernia repair; breast implants; ca1 - Immunization history:: Adult Immunizations not up to date, Flu vaccine is not up to date. - Coronavirus screen:: The patient has NOT traveled to [place], [place], or [place] in the past 14 days. The patient has NOT had contact with known/suspected case of Coronavirus?. - Social history:: Smoking status: Patient reports the use of cigarette tobacco products, smokes one pack cigarettes per day. - Ebola Screening: : Patient negative for fever greater than or equal to 101.5 degrees Fahrenheit, and additional compatible Ebola Virus Disease symptoms Patient denies exposure to infectious person Patient denies travel to an Ebola-affected area in the 21 days before illness onset No symptoms or risks identified at this time. ROS: 23:23 Constitutional: Negative for fever, chills, and weight loss, Eyes: Negative for injury, la1 pain, redness, and discharge, ENT: Negative for injury, pain, and discharge, Neck: Negative for injury, pain, and swelling, Cardiovascular: Negative for chest pain, palpitations, and edema, Respiratory: Negative for shortness of breath, cough, wheezing, and pleuritic chest pain. 23:23 Back: Negative for injury and pain, : Negative for injury, bleeding, discharge, and swelling, MS/Extremity: Negative for injury and deformity, Skin: Negative for injury, rash, and discoloration, Neuro: Negative for headache, weakness, numbness, tingling, and seizure, Endocrine: Negative for neck swelling, polydipsia, polyuria, polyphagia, and marked weight changes. 23:23 Abdomen/GI: Positive for abdominal pain, nausea, vomiting, abdominal distension, Negative for hematemesis, black/tarry stool, rectal pain, rectal bleeding. Exam: 23:24 Constitutional: This is a well developed, well nourished patient who is awake, alert, la1 and in no acute distress. Head/Face: Normocephalic, atraumatic. Eyes: Cornea within normal limits. Periorbital areas with no swelling, redness, or edema. ENT: Mucous membranes moist. Neck: Trachea midline, no thyromegaly or masses palpated, and no cervical lymphadenopathy. Supple, full range of motion without nuchal rigidity, or vertebral point tenderness. No Meningismus. Chest/axilla: Normal chest wall appearance and motion. Nontender with no deformity. No lesions are appreciated. Cardiovascular: Regular rate and rhythm with a normal S1 and S2. No gallops, murmurs, or rubs. Normal PMI, no JVD. No pulse deficits. Respiratory: Lungs have equal breath sounds bilaterally, clear to auscultation 23:24 Back: No spinal tenderness. No costovertebral tenderness. Full range of motion. Skin: Warm, dry with normal turgor. Normal color with no rashes, no lesions, and no evidence of cellulitis. MS/ Extremity: Pulses equal, no cyanosis. Neurovascular intact. Full, normal range of motion. 23:24 Abdomen/GI: Inspection: obese Bowel sounds: normal, in all quadrants, Palpation: soft, in all quadrants, mild abdominal tenderness, in the right upper quadrant, Rectal exam: Indicators: McBurney's point is not tender, Marrero's sign is positive, Rovsing's sign is negative, Obturator sign is negative, Psoas sign is negative. Vital Signs: 19:10 BP 150 / 106; Pulse 105; Resp 17 S; Temp 99(O); Pulse Ox 95% on R/A; Weight 74.84 kg ca1 (R); Height 5 ft. 7 in. (170.18 cm) (R); Pain 9/10; 20:00 BP 193 / 105; Pulse 86; Resp 18; Pulse Ox 96% on R/A; vc 21:00 BP 189 / 102; Pulse 92; Resp 20; Pulse Ox 100% on R/A; vc 22:00 BP 185 / 98; Pulse 87; Resp 20; Pulse Ox 97% on R/A; vc 23:20 BP 184 / 90; Pulse 84; Resp 16 S; Pulse Ox 96% on R/A; Pain 7/10; bb 19:10 Body Mass Index 25.84 (74.84 kg, 170.18 cm) ca1 MDM: 19:11 Patient medically screened. la1 22:54 Data reviewed: vital signs, nurses notes, lab test result(s), radiologic studies, I la1 have discussed the patient's presentation/case with the attending Emergency Department Physician; and as a result, I will discharge patient. Data interpreted: Pulse oximetry: on room air is 95 %. Interpretation: normal. 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 Medication response: Response to treatment: the patient's symptoms have markedly improved after treatment. 04/07 19:21 Order name: Basic Metabolic Panel; Complete Time: 20:26 ct04/07 19:21 Order name: CBC with Diff; Complete Time: 20:49 04/07 19:21 Order name: Creatinine for Radiology; Complete Time: 20:26 04/07 19:21 Order name: Hepatic Function; Complete Time: 20:26 04/07 19:21 Order name: Lipase; Complete Time: 20:26 ct04/07 21:08 Order name: Urine Dipstick--Ancillary (enter results); Complete Time: 22:55 ar5 04/07 19:21 Order name: IV Saline Lock; Complete Time: 19:42 la04/07 19:21 Order name: Labs collected and sent; Complete Time: 19:42 04/07 20:57 Order name: CT Abd/Pelvis - IV Contrast Only 04/07 19:21 Order name: Urine Dipstick-Ancillary (obtain specimen); Complete Time: 21:06 la04/07 19:21 Order name: Urine Test (obtain specimen); Complete Time: 21:06 la Administered Medications: 19:44 Drug: Zofran 4 mg Route: IVP; Site: right antecubital; mg2 21:06 Follow up: Response: No adverse reaction vc 19:44 Drug: NS 0.9% 500 ml Route: IV; Rate: bolus; Site: right antecubital; mg2 19:45 Drug: morphine 4 mg Route: IVP; Site: right antecubital; mg2 21:06 Follow up: Response: No adverse reaction vc 22:05 Drug: Demerol 50 mg Route: IVP; Site: right antecubital; vc 23:11 Drug: [place] 10 mg-325 mg 1 tabs {Note: RASS 0.} Route: PO; bb 23:21 Follow up: Response: No adverse reaction; Medication administered at discharge. bb Disposition: 04/08 06:45 Co-signature as Attending Physician, Diego Ramirez MD I agree with the assessment and hannah plan of care. Disposition: 04/07/19 22:55 Discharged to Home. Impression: Abdominal and pelvic pain. - Condition is Stable. - Discharge Instructions: Abdominal Pain, Adult, Abdominal Pain, Adult, [id number]. - Prescriptions for Bentyl 20 mg Oral Tablet - take 1 tablet by ORAL route every 6 hours As needed; 20 tablet. Zofran 4 mg Oral Tablet - take 1 tablet by ORAL route every 12 hours As needed; 6 tablet. - Medication Reconciliation Form, Thank You Letter, Antibiotic Education form. - Follow up: Private Physician; When: 2 - 3 days; Reason: Recheck today's complaints, Re-evaluation by your physician. - Problem is new. - Symptoms have improved. - Notes: please call tomorrow and have your HIDA scan scheduled, if your symptoms worsen or you cannot tolerate fluids by mouth please immediately return to the ER
Signatures: Dispatcher [employer] Diego Osorio MD MD cha Ballard, Brenda, RN RN bb Hu Gardner, LAW FIRM CONSULTANT-C LAW FIRM CONSULTANT-Cla1 Hermann Andrade, RN RN mg2 Jenna Baugh RN RN ca1 Yessica Murphy RN RN vc Corrections: (The following items were deleted from the chart) 04/07 23:22 22:55 04/07/2019 22:55 Discharged to Home. Impression: Abdominal and pelvic pain. bb Condition is Stable. Forms are Medication Reconciliation Form, Thank You Letter, Antibiotic Education, Prescription Opioid Use. Follow up: Private Physician; When: 2 - 3 days; Reason: Recheck today's complaints, Re-evaluation by your physician. Problem is new. Symptoms have improved. la1
[2019-04-07] MEDS ORDERED: HYDROCODONE/APAP 10/325 TAB ONE (23:11)
[2019-04-08 00:43] VITALS: TEMP 99
[2019-04-08 00:44] VITALS: BP 184/90; O2SAT 96
--- NOTE | 2019-04-08 11:14 | RAD REPORT ---
EXAM DESCRIPTION: CT - Abdomen Pelvis W Contrast - 04/07/2019 10:40 pm COMPARISON: CT abdomen and pelvis March 10 2019 CLINICAL HISTORY: Abdominal pain TECHNIQUE: Multiple helical axial images were obtained through the abdomen and pelvis using intraven ous contrast. Coronal and sagittal reformatted images were obtained. All CT scans at this facility use dose modulation, iterative reconstruction, and/or weight-based dosi ng when appropriate to reduce radiation dose to as low as reasonably achievable. FINDINGS: Lung bases: Small hiatal hernia is present. Linear atelectasis in the left lower lobe is p resent. Liver: Homogenous attenuation is noted. A few small hypodensities are present measuring up to 1 cm penn ggestive of cysts. Gallbladder/biliary: Appears unremarkable Pancreas: Unremarkable. No evidence of ductal enlargement. Spleen: Appears unremarkable. No splenomegaly. Adrenals: Unremarkable. Kidneys and ureters: No evidence of hydronephrosis. Normal enhancement. A few subcentimeter hypoden sities in the left kidney are present too small to characterize but suggestive of cysts. Bladder: Unremarkable. Pelvic organs: Unremarkable. Bowel: No evidence of bowel obstruction. No bowel wall thickening. Appendix appears unremarkable. Vasculature: Minimal aortic atherosclerotic plaque noted. Peritoneum: No free air. No significant free fluid. Lymph nodes: Unremarkable. Soft tissues: Unremarkable. Bones: Degenerative changes of the lumbar spine noted. IMPRESSION: No evidence for an acute process within the abdomen or pelvis. Electronically signed by: Hiram Casillas MD 04/07/2019 9:59 PM LOW VOLTAGE TECHNICIAN Due to temporary technical issues with the PACS/Fluency reporting system, reports are being signed by the in house radiologist as a courtesy to ensure prompt reporting. The interpreting radiologist is f ully responsible for the content of the report.
== END 2019-04-07 23:22 | disposition home or self-care (01) ==
LOC: ER 18:19
DX: R10.2 Pelvic and perineal pain (principal); F17.210 Nicotine dependence, cigarettes, uncomplicated; I10 Essential (primary) hypertension; Z98.82 Breast implant status; Z88.8 Allergy status to other drugs, medicaments and biological substances
CPT/HCPCS: 85025; 80048; 36415; 80076; 81003; 83690; 74177; 96375; 96374; 99284; Q9967; J2175; J7030; J2405 ×2

== ENCOUNTER 2019-07-03 05:21 | Emergency (ER) | payer OTHER ==
--- OUTSIDE RECORDS SUMMARY | 2019-07-03 05:23 | XMS REPORT ---
:[address] [facility] t Address [address] [place] [address] Dr. Vasquez [address] [place] [id number] Care Team Providers Name Role Phone Unavailable Unavailable Unavailable Problems This patient has no known problems. Allergies, Adverse Reactions, Alerts This patient has no known allergies or adverse reactions. Medications This patient has no known medications.
[2019-07-03] MEDS ORDERED: cloNIDine HCL 0.1 MG TAB ONE ×2 (06:35→06:42)
[2019-07-03] MEDS ORDERED: LORazepam 2 MG/ML VIAL ONE (06:36)
[2019-07-03] MEDS ORDERED: ONDANSETRON 4 MG (ODT) TAB ONE (06:36)
--- NOTE | 2019-07-03 08:20 | EDPHYS ---
Physician Documentation [facility] Name: Jaimie Amanda Age: 58 yrs Sex: Female : 1960 Arrival Date: 07/03/2019 Time: 05:24 Bed 8 Private MD: ED Physician Taco Teran HPI: 07/02 06:29 This 58 yrs old Female presents to ER via Ambulatory with complaints of jr8 Anxiety. 06:29 The patient presents to the emergency department with anxiety. Onset: The jr8 symptoms/episode began/occurred acutely, today. Past psychiatric history: Prior diagnosis: depression, anxiety. Associated signs and symptoms: Pertinent positives; nausea, vomiting. Severity of symptoms: At their worst the symptoms were moderate in the emergency department the symptoms are unchanged. The patient has experienced similar episodes in the past, a few times, but today's symptoms are worse. The patient has not recently seen a physician. Patient stated that she has had a panic attack for about 3 hours now. Usually does not have this. Is on daily medication that helps her and has not had a panic attack in a while. Unknown why it started. No recent medication change, stress, or sleep changes . Historical: - Allergies: 05:49 Nitroglycerin; sg - Home Meds: 05:49 clonidine HCl 0.1 mg Oral tab 1 tab 3 times per day [Active]; hydroxyzine HCl 50 mg sg Oral tab 1 tab BID PRN [Active]; levothyroxine 137 mcg tab 1 tab once daily [Active]; Linzess 290 mcg Oral cap 1 cap once daily [Active]; liothyronine 5 mcg Oral tab 1 tab once daily [Active]; losartan-hydrochlorothiazide 100-25 mg Oral tab 1 tab once daily [Active]; metformin 500 mg Oral tab 1 tab 2 times per day [Active]; naltrexone 50 mg Oral tab 1 tab once daily [Active]; omeprazole 40 mg Oral cpDR 1 cap once daily [Active]; oxcarbazepine 600 mg Oral tab 1 am and 2 pm [Active]; oxybutynin chloride 5 mg Oral tab 1 tab 2 times per day [Active]; paroxetine HCl 40 mg Oral tab 1 tab once daily [Active]; trazodone 100 mg Oral tab 1 tab nightly [Active]; - PMHx: 05:49 Anxiety; Depression; Diabetes - NIDDM; etoh abuse; Hypertension; Hypothyroidism; sg Seizures; - Immunization history:: Adult Immunizations up to date. - Social history:: Smoking status: Patient denies any tobacco usage or history of. ROS: 06:29 Eyes: Negative for injury, pain, redness, and discharge, ENT: Negative for injury, jr8 pain, and discharge, Neck: Negative for injury, pain, and swelling, Cardiovascular: Negative for chest pain, palpitations, and edema, Respiratory: Negative for shortness of breath, cough, wheezing, and pleuritic chest pain, Back: Negative for injury and pain, MS/Extremity: Negative for injury and deformity, Skin: Negative for injury, rash, and discoloration. 06:29 Abdomen/GI: Positive for nausea, vomiting, Negative for abdominal pain, constipation, abdominal cramps, abdominal distension. 06:29 Psych: Positive for anxiety. Exam: 06:29 Eyes: Pupils equal round and reactive to light, extra-ocular motions intact. Lids and jr8 lashes normal. Conjunctiva and sclera are non-icteric and not injected. Cornea within normal limits. Periorbital areas with no swelling, redness, or edema. ENT: Nares patent. No nasal discharge, no septal abnormalities noted. Tympanic membranes are normal and external auditory canals are clear. Oropharynx with no redness, swelling, or masses, exudates, or evidence of obstruction, uvula midline. Mucous membranes moist. Neck: Trachea midline, no thyromegaly or masses palpated, and no cervical lymphadenopathy. Supple, full range of motion without nuchal rigidity, or vertebral point tenderness. No Meningismus. Cardiovascular: Regular rate and rhythm with a normal S1 and S2. No gallops, murmurs, or rubs. Normal PMI, no JVD. No pulse deficits. Respiratory: Lungs have equal breath sounds bilaterally, clear to auscultation and percussion. No rales, rhonchi or wheezes noted. No increased work of breathing, no retractions or nasal flaring. Abdomen/GI: Soft, non-tender, with normal bowel sounds. No distension or tympany. No guarding or rebound. No evidence of tenderness throughout. Back: No spinal tenderness. No costovertebral tenderness. Full range of motion. Skin: Warm, dry with normal turgor. Normal color with no rashes, no lesions, and no evidence of cellulitis. MS/ Extremity: Pulses equal, no cyanosis. Neurovascular intact. Full, normal range of motion. Neuro: Awake and alert, GCS 15, oriented to person, place, time, and situation. Cranial nerves II-XII grossly intact. Motor strength 5/5 in all extremities. Sensory grossly intact. Cerebellar exam normal. Normal gait. 06:29 Psych: Behavior/mood is cooperative, anxious, Affect is calm, Oriented to person, place, time, Judgement / Insight is normal. Memory is normal. Delusions/hallucinations are not present. 06:42 ECG was reviewed by the Attending Physician. jr8 Vital Signs: 05:54 BP 190 / 97; Pulse 89; Resp 18; Temp 98.1; Pulse Ox 99% on R/A; Weight 75.3 kg; Height sg 5 ft. 8 in. (172.72 cm); Pain 8/10; 06:34 BP 182 / 95; Pulse 87; Resp 17; Pulse Ox 99% on R/A; rr5 08:48 BP 161 / 98; Pulse 85; Resp 18; Temp 98.2; Pulse Ox 100% on R/A; ph 05:54 Body Mass Index 25.24 (75.30 kg, 172.72 cm) sg MDM: 05:41 Patient medically screened. pkl 08:07 Data reviewed: vital signs, nurses notes, lab test result(s), EKG, and as a result, I jr8 will discharge patient. Data interpreted: Pulse oximetry: on room air is 99 %. Interpretation: normal. Counseling: I had a detailed discussion with the patient and/or guardian regarding: the historical points, exam findings, and any diagnostic results supporting the discharge/admit diagnosis, the need for outpatient follow up, a family practitioner, to return to the emergency department if symptoms worsen or persist or if there are any questions or concerns that arise at home. Response to treatment: the patient's symptoms have mildly improved after treatment. ED course: Blood pressure more controlled. Patient feeling better. Will d/c home to f/u with PCP . 07/02 06:28 Order name: EKG - Nurse/Tech; Complete Time: 06:34 jr8 EC:42 Rate is 87 beats/min. Rhythm is regular, Normal Sinus Rhythm. QRS [place] is Normal. RI jr8 interval is normal at 182 msec. QRS interval is normal at 96 msec. QT interval is normal at 454 msec. No Q waves. T waves are Normal. No ST changes noted. Clinical impression: Normal ECG. Interpreted by me. Reviewed by me. Administered Medications: 06:33 Drug: cloNIDine 0.2 mg Route: PO; rr5 08:47 Follow up: Response: No adverse reaction ph 06:34 Drug: Zofran (Ondansetron) 4 mg Route: PO; rr5 08:47 Follow up: Response: No adverse reaction ph 06:34 Drug: Ativan 2 mg Route: IM; Site: right gluteus; rr5 08:47 Follow up: Response: No adverse reaction ph 08:47 Not Given (Physician Discretion): hydrALAZINE 10 mg IM once ph Disposition: 19:07 Co-signature as Attending Physician, Taco Teran MD. khushbu Disposition: 07/03/19 08:19 Discharged to Home. Impression: Panic disorder [episodic paroxysmal anxiety] without agoraphobia, Essential (primary) hypertension. - Condition is Stable. - Discharge Instructions: Panic Attacks, Hypertension, Managing Your Hypertension. - Medication Reconciliation Form, Thank You Letter, Antibiotic Education, Prescription Opioid Use form. - Follow up: Private Physician; When: 5 - 6 days; Reason: Recheck today's complaints, Continuance of care, Re-evaluation by your physician. Signatures: Kush Segovia RN RN sg Lam, Pin, MD MD pkl Paras Naik PA PA jr8 Shruthi Donohue RN RN ph Roque, Raymond, RN RN rr5 Corrections: (The following items were deleted from the chart) 08:49 08:19 07/03/2019 08:19 Discharged to Home. Impression: Panic disorder [episodic ph paroxysmal anxiety] without agoraphobia; Essential (primary) hypertension. Condition is Stable. Forms are Medication Reconciliation Form, Thank You Letter, Antibiotic Education, Prescription Opioid Use. Follow up: Private Physician; When: 5 - 6 days; Reason: Recheck today's complaints, Continuance of care, Re-evaluation by your physician. jr8
--- NOTE | 2019-07-03 08:20 | ER ---
Nurse's Notes [facility] Name: Jaimie Amanda Age: 58 yrs Sex: Female : 1960 Arrival Date: 07/03/2019 Time: 05:24 Bed 8 Private MD: Diagnosis: Panic disorder [episodic paroxysmal anxiety] without agoraphobia;Essential (primary) hypertension Presentation: 07/02 05:44 Chief complaint: Patient states: Reports unable to urinate x2 days, has nausea, feeling sg anxious today. Coronavirus screen: Proceed with normal triage. Ebola Screen: Patient negative for fever greater than or equal to 101.5 degrees Fahrenheit, and additional compatible Ebola Virus Disease symptoms Patient denies exposure to infectious person. Patient denies travel to an Ebola-affected area in the 21 days before illness onset. No symptoms or risks identified at this time. Initial Sepsis Screen: Does the patient meet any 2 criteria? No. Patient's initial sepsis screen is negative. Does the patient have a suspected source of infection? Yes: Dysuria/Frequency/Urgency/UTI. Risk Assessment: Do you want to hurt yourself or someone else? Patient reports no desire to harm self or others. Onset of symptoms was July 03, 2019. Care prior to arrival: None. 05:44 Method Of Arrival: Ambulatory sg 05:44 Acuity: ZHEN 3 sg Historical: - Allergies: 05:49 Nitroglycerin; sg - Home Meds: 05:49 clonidine HCl 0.1 mg Oral tab 1 tab 3 times per day [Active]; hydroxyzine HCl 50 mg sg Oral tab 1 tab BID PRN [Active]; levothyroxine 137 mcg tab 1 tab once daily [Active]; Linzess 290 mcg Oral cap 1 cap once daily [Active]; liothyronine 5 mcg Oral tab 1 tab once daily [Active]; losartan-hydrochlorothiazide 100-25 mg Oral tab 1 tab once daily [Active]; metformin 500 mg Oral tab 1 tab 2 times per day [Active]; naltrexone 50 mg Oral tab 1 tab once daily [Active]; omeprazole 40 mg Oral cpDR 1 cap once daily [Active]; oxcarbazepine 600 mg Oral tab 1 am and 2 pm [Active]; oxybutynin chloride 5 mg Oral tab 1 tab 2 times per day [Active]; paroxetine HCl 40 mg Oral tab 1 tab once daily [Active]; trazodone 100 mg Oral tab 1 tab nightly [Active]; - PMHx: 05:49 Anxiety; Depression; Diabetes - NIDDM; etoh abuse; Hypertension; Hypothyroidism; sg Seizures; - Immunization history:: Adult Immunizations up to date. - Social history:: Smoking status: Patient denies any tobacco usage or history of. Screenin:35 Abuse screen: Denies threats or abuse. Denies injuries from another. Nutritional rr5 screening: No deficits noted. Tuberculosis screening: No symptoms or risk factors identified. Fall Risk None identified. Total Rubio Fall Scale indicates No Risk (0-24 pts). Assessment: 05:50 General: Appears in no apparent distress. uncomfortable, Behavior is cooperative, rr5 anxious. 05:50 Pain: Complains of pain in body Pain does not radiate. Pain currently is 8 out of 10 on rr5 a pain scale. Quality of pain is described as aching, Pain began gradually, Is intermittent. Neuro: Level of Consciousness is awake, alert, obeys commands, Oriented to person, place, time, situation, Appropriate for age. Cardiovascular: Capillary refill < 3 seconds Patient's skin is warm and dry. Respiratory: Airway is patent Respiratory effort is even, unlabored, Respiratory pattern is regular, symmetrical. GI: Abdomen is round non-distended, Reports nausea, vomiting. : Reports inability to void, since 2 days ago. EENT: No signs and/or symptoms were reported regarding the EENT system. Derm: Skin is intact, is healthy with good turgor, Skin temperature is warm. Musculoskeletal: Circulation, motion, and sensation intact. Capillary refill < 3 seconds, Reports pain in bodyache. 06:30 Reassessment: Patient appears in no apparent distress at this time. Patient is alert, rr5 oriented x 3, equal unlabored respirations, skin warm/dry/pink. 08:48 Reassessment: Patient appears in no apparent distress at this time. Patient and/or ph family updated on plan of care and expected duration. Pain level reassessed. Patient is alert, oriented x 3, equal unlabored respirations, skin warm/dry/pink. Pt's BP noted to have decreased, IM BP med held per verbal order, pt states, " I still feel meri anxious but I am much better than when I came in." D/C home]. Vital Signs: 05:54 BP 190 / 97; Pulse 89; Resp 18; Temp 98.1; Pulse Ox 99% on R/A; Weight 75.3 kg; Height sg 5 ft. 8 in. (172.72 cm); Pain 8/10; 06:34 BP 182 / 95; Pulse 87; Resp 17; Pulse Ox 99% on R/A; rr5 08:48 BP 161 / 98; Pulse 85; Resp 18; Temp 98.2; Pulse Ox 100% on R/A; ph 05:54 Body Mass Index 25.24 (75.30 kg, 172.72 cm) ED Course: 05:24 Patient arrived in ED. ag3 05:41 Taco Teran MD is Attending Physician. pkl 05:44 Arm band placed on. sg 05:49 Triage completed. sg 06:00 No provider procedures requiring assistance completed. rr5 06:05 Paras Naik PA is PHCP. jr8 06:05 Taco Teran MD is Attending Physician. jr8 06:26 Ez Mcnamara RN is Primary Nurse. rr5 06:35 Patient has correct armband on for positive identification. Bed in low position. Call rr5 light in reach. Side rails up X2. court recording monitor on. Pulse ox on. NIBP on. 08:49 Patient did not have IV access during this emergency room visit. ph Administered Medications: 06:33 Drug: cloNIDine 0.2 mg Route: PO; rr5 08:47 Follow up: Response: No adverse reaction ph 06:34 Drug: Zofran (Ondansetron) 4 mg Route: PO; rr5 08:47 Follow up: Response: No adverse reaction ph 06:34 Drug: Ativan 2 mg Route: IM; Site: right gluteus; rr5 08:47 Follow up: Response: No adverse reaction ph 08:47 Not Given (Physician Discretion): hydrALAZINE 10 mg IM once ph Outcome: 08:19 Discharge ordered by . jr8 08:49 Discharged to home ambulatory. ph 08:49 Condition: good 08:49 Discharge instructions given to patient, Instructed on discharge instructions, follow up and referral plans. Demonstrated understanding of instructions, follow-up care. 08:49 Patient left the ED. ph Signatures: Kush Segovia RN Taco Rodas MD MD pkl Roszak, Josh, PA PA jr8 Shruthi Donohue RN RN ph Zahira Bacon3 Ez Mcnamara RN RN rr5 Corrections: (The following items were deleted from the chart) 06:35 06:35 Pulse ox on. NIBP on. rr5 rr5
[2019-07-03] MEDS ORDERED: HYDRALAZINE HCL 20 MG/ML VIAL ONE (08:40)
[2019-07-03 08:58] VITALS: BP 161/98; TEMP 98.2; O2SAT 100
--- NOTE | 2019-07-04 20:15 | EKG ---
Test Date: 2019-07-03 Test Time: 06:36:25 Slice Cutting Machine Operator: HAIM MEASUREMENT RESULTS: Intervals: Rate: 87 AK: 182 QRSD: 96 QT: 378 QTc: 454 [place]: P: 45 AK: 182 QRS: 46 T: 49 INTERPRETIVE STATEMENTS: Normal sinus rhythm Normal ECG Compared to ECG 03/07/2019 11:04:04 No significant changes Electronically Signed On 07-04-19 20:11:20 CDT by Daniel Cespedes
== END 2019-07-03 08:49 | disposition home or self-care (01) ==
LOC: ER 05:21
DX: F41.0 Panic disorder [episodic paroxysmal anxiety] (principal); I10 Essential (primary) hypertension; E03.9 Hypothyroidism, unspecified; E11.9 Type 2 diabetes mellitus without complications; F34.1 Dysthymic disorder; G40.909 Epilepsy, unspecified, not intractable, without status epilepticus; Z88.8 Allergy status to other drugs, medicaments and biological substances
CPT/HCPCS: 93005; J0360; 96372; 99284

== ENCOUNTER 2019-07-31 12:43 | Emergency (ER) | payer OTHER ==
--- OUTSIDE RECORDS SUMMARY | 2019-07-31 12:45 | XMS REPORT ---
:1960 Author Organization [facility] t Address [address] [place] [address] [address]. [address] [place] [address] Care Team Providers Name Role Phone Shar Brewster Attending Clinician Problems This patient has no known problems. Allergies, Adverse Reactions, Alerts This patient has no known allergies or adverse reactions. Medications This patient has no known medications. Procedures This patient has no known procedures. Encounters Start End Encounter Admission Attending Care Care Encounter Source Date/Time Date/Time Type Type Clinicians Facility Department ID 2018-10-21 2018-10-21 Telephone [facility] [id number] 00:00:00 00:00:00 Natacha Nguyen [id number] [place] [id number] [place] [id number] [facility] 204 [facility] Results This patient has no known results.
[2019-07-31 13:52] LABS: Urine Blood NEGATIVE (NEG); Urine Glucose NEGATIVE (NEG); Urine Protein 1+ (NEG); Urine Specific Gravity >1.030 (1.005-1.030); Urine pH 5.5 (5.0-7.0)
--- NOTE | 2019-07-31 14:28 | RAD REPORT ---
EXAM DESCRIPTION: RAD - Chest Pa And Lat (2 Views) - 07/31/2019 1:51 pm CLINICAL HISTORY: COUGH COMPARISON: Portable October 2018, portable November 2016 TECHNIQUE: Frontal and lateral views of the chest were obtained. FINDINGS: The lungs are clear of a peripheral mass or consolidation. Baseline prominent interstitial pattern is similar to comparison. No failure or volume overload findings. Heart size is normal and central vasculature is within normal limits. No pleural effusion or pneu mothorax seen. No acute bony finding noted. No aortic abnormality. IMPRESSION: No acute cardiopulmonary process. Chest findings are not substantially different from c omparison.
--- NOTE | 2019-07-31 15:11 | EDPHYS ---
Physician Documentation [facility] Name: Jaimie Amanda Age: 58 yrs Sex: Female : 1960 Arrival Date: 07/31/2019 Time: 12:45 Bed 15 Private MD: ED Physician Gustavo Reed HPI: 07/30 13:37 This 58 yrs old Female presents to ER via Ambulatory with complaints of Flu mh7 Symptoms, Pain All Over. 13:39 The patient reports fever, that was measured at 100.1 degrees Fahrenheit. Onset: The mh7 symptoms/episode began/occurred 1 week(s) ago. Modifying factors: there are no obvious modifying factors. Associated signs and symptoms: Pertinent positives: cough, with clear sputum, myalgias, sore throat, Pertinent negatives: abdominal pain, altered mental status, arthralgias, backache, chest pain, chills, diarrhea, pulling at ears, earache, headache, hemoptysis, nausea, night sweats, runny nose, sinus congestion, sinus drainage, skin rash, swelling, vomiting. Severity of symptoms: At their worst the symptoms were mild today, in the emergency department the symptoms are unchanged. 13:39 Associated signs and symptoms: Pertinent positives: shortness of breath. mh7 Historical: - Allergies: 13:03 Nitroglycerin; ll1 - PMHx: 13:03 Anxiety; Hypothyroidism; Diabetes - NIDDM; etoh abuse; Hypertension; Seizures; ll1 Depression; - PSHx: 13:03 Thyroidectomy; Hernia repair; ll1 - Immunization history:: Adult Immunizations up to date. - Social history:: Smoking status: Patient reports the use of cigarette tobacco products, smokes one pack cigarettes per day. Patient/guardian denies using alcohol, street drugs. ROS: 13:39 Eyes: Negative for injury, pain, redness, and discharge, Neck: Negative for injury, mh7 pain, and swelling, Cardiovascular: Negative for chest pain, palpitations, and edema, Abdomen/GI: Negative for abdominal pain, nausea, vomiting, diarrhea, and constipation, Back: Negative for injury and pain, : Negative for injury, bleeding, discharge, and swelling, MS/Extremity: Negative for injury and deformity, Skin: Negative for injury, rash, and discoloration, Neuro: Negative for headache, weakness, numbness, tingling, and seizure, Psych: Negative for depression, anxiety, suicide ideation, homicidal ideation, and hallucinations, Allergy/Immunology: Negative for hives, rash, and allergies, Endocrine: Negative for neck swelling, polydipsia, polyuria, polyphagia, and marked weight changes, Hematologic/Lymphatic: Negative for swollen nodes, abnormal bleeding, and unusual bruising. Exam: 13:39 Constitutional: This is a well developed, well nourished patient who is awake, alert, mh7 and in no acute distress. Head/Face: Normocephalic, atraumatic. Eyes: Pupils equal round and reactive to light, extra-ocular motions intact. Lids and lashes normal. Conjunctiva and sclera are non-icteric and not injected. Cornea within normal limits. Periorbital areas with no swelling, redness, or edema. ENT: Nares patent. No nasal discharge, no septal abnormalities noted. Tympanic membranes are normal and external auditory canals are clear. Oropharynx with no redness, swelling, or masses, exudates, or evidence of obstruction, uvula midline. Mucous membranes moist. Neck: Trachea midline, no thyromegaly or masses palpated, and no cervical lymphadenopathy. Supple, full range of motion without nuchal rigidity, or vertebral point tenderness. No Meningismus. Chest/axilla: Normal chest wall appearance and motion. Nontender with no deformity. No lesions are appreciated. Cardiovascular: Regular rate and rhythm with a normal S1 and S2. No gallops, murmurs, or rubs. Normal PMI, no JVD. No pulse deficits. Respiratory: Lungs have equal breath sounds bilaterally, clear to auscultation and percussion. No rales, rhonchi or wheezes noted. No increased work of breathing, no retractions or nasal flaring. Abdomen/GI: Soft, non-tender, with normal bowel sounds. No distension or tympany. No guarding or rebound. No evidence of tenderness throughout. Back: No spinal tenderness. No costovertebral tenderness. Full range of motion. Skin: Warm, dry with normal turgor. Normal color with no rashes, no lesions, and no evidence of cellulitis. MS/ Extremity: Pulses equal, no cyanosis. Neurovascular intact. Full, normal range of motion. Neuro: Awake and alert, GCS 15, oriented to person, place, time, and situation. Cranial nerves II-XII grossly intact. Motor strength 5/5 in all extremities. Sensory grossly intact. Cerebellar exam normal. Normal gait. Psych: Awake, alert, with orientation to person, place and time. Behavior, mood, and affect are within normal limits. Vital Signs: 13:00 BP 159 / 82; Pulse 87; Resp 17; Temp 97.7; Pulse Ox 96% ; Pain 8/10; ll1 MDM: 13:14 Patient medically screened. [facility] 15:08 Differential diagnosis: viral Infection, bacterial infection, URI, bronchitis, 7 pneumonia UTI. Data reviewed: vital signs, nurses notes, lab test result(s), urinalysis, radiologic studies, plain films. Data interpreted: Pulse oximetry: on room air is 96 %. Interpretation: normal. Counseling: I had a detailed discussion with the patient and/or guardian regarding: the historical points, exam findings, and any diagnostic results supporting the discharge/admit diagnosis, the presence of at least one elevated blood pressure reading (>120/80) during this emergency department visit, lab results, radiology results, the need for outpatient follow up, smoking cessation. 07/30 13:17 Order name: Influenza Screen (a \T\ B); Complete Time: 15:02 [facility] 07/30 13:17 Order name: Strep; Complete Time: 15:02 [facility] 07/30 13:17 Order name: Urine Dipstick-Ancillary (obtain specimen); Complete Time: 13:38 [facility] 07/30 13:17 Order name: Chest Pa And Lat (2 Views) XRAY; Complete Time: 15:02 [facility] 07/30 13:42 Order name: Urine Dipstick--Ancillary (enter results); Complete Time: 15:02 1 07/30 14:07 Order name: Throat Culture EDMS Administered Medications: No medications were administered Disposition: 07/31/19 15:10 Discharged to Home. Impression: Viral infection, unspecified. - Condition is Stable. - Discharge Instructions: Viral Respiratory Infection, [id number]. - Medication Reconciliation Form, Thank You Letter, Antibiotic Education, Prescription Opioid Use form. - Follow up: Private Physician; When: 1 - 2 days; Reason: Worsening of condition, Re-evaluation by your physician. - Problem is an ongoing problem. - Symptoms have improved. Signatures: Dispatcher [employer] EDMS Bhavna Corado RN RN aa5 Mikhail Otero RN RN ll1 Gustavo Reed MD MD mh7 Corrections: (The following items were deleted from the chart) 15:30 15:10 07/31/2019 15:10 Discharged to Home. Impression: Viral infection, unspecified. aa5 Condition is Stable. Forms are Medication Reconciliation Form, Thank You Letter, Antibiotic Education, Prescription Opioid Use. Follow up: Private Physician; When: 1 - 2 days; Reason: Worsening of condition, Re-evaluation by your physician. Problem is an ongoing problem. Symptoms have improved. mh7
--- NOTE | 2019-07-31 15:11 | ER ---
Nurse's Notes [facility] Name: Jaimie Amanda Age: 58 yrs Sex: Female : 1960 Arrival Date: 07/31/2019 Time: 12:45 Bed 15 Private MD: Diagnosis: Viral infection, unspecified Presentation: 07/30 13:00 Chief complaint: Patient states: Body aches, cough/SOB for 1 week. Coronavirus screen: ll1 Surgical mask placed on patient. Patient moved to private room, placed in contact and droplet isolation with eye protection until further assessment. Patient reports a cough. Patient reports shortness of breath or difficulty breathing. Patient reports a measured and/or subjective temperature greater than 100.4F. Patient denies travel on a cruise ship or to a country the [facility] currently lists as an affected area. Patient denies contact with known and/or suspected case of COVID-19. Ebola Screen: Patient denies travel to an Ebola-affected area in the 21 days before illness onset. Initial Sepsis Screen: Does the patient meet any 2 criteria? No. Patient's initial sepsis screen is negative. Does the patient have a suspected source of infection? No. Patient's initial sepsis screen is negative. Risk Assessment: Do you want to hurt yourself or someone else? Patient reports no desire to harm self or others. Onset of symptoms was July 24, 2019. 13:00 Method Of Arrival: Ambulatory ll1 13:00 Acuity: ZHEN 3 ll1 Historical: - Allergies: 13:03 Nitroglycerin; ll1 - PMHx: 13:03 Anxiety; Hypothyroidism; Diabetes - NIDDM; etoh abuse; Hypertension; Seizures; ll1 Depression; - PSHx: 13:03 Thyroidectomy; Hernia repair; ll1 - Immunization history:: Adult Immunizations up to date. - Social history:: Smoking status: Patient reports the use of cigarette tobacco products, smokes one pack cigarettes per day. Patient/guardian denies using alcohol, street drugs. Screenin:06 Abuse screen: Denies threats or abuse. Nutritional screening: No deficits noted. ll1 Tuberculosis screening: No symptoms or risk factors identified. Fall Risk None identified. Total Rubio Fall Scale indicates No Risk (0-24 pts). Assessment: 13:04 General: Appears in no apparent distress. Behavior is calm, cooperative, appropriate ll1 for age. Pain: Complains of pain in generalized body aches Pain currently is 8 out of 10 on a pain scale. Quality of pain is described as aching, Pain began 1 week. Neuro: No deficits noted. Cardiovascular: No deficits noted. Respiratory: Reports shortness of breath cough that is Airway is patent Trachea midline Respiratory effort is even, unlabored, Respiratory pattern is regular, symmetrical, Breath sounds are clear bilaterally. Onset: The symptoms/episode began/occurred 1 week, the patient has mild shortness of breath. GI: No deficits noted. Musculoskeletal: Reports pain in generalized body aches. 13:30 Reassessment: Patient is alert, oriented x 3, equal unlabored respirations, skin aa5 warm/dry/pink. Pt ambulatory to restroom. Vital Signs: 13:00 BP 159 / 82; Pulse 87; Resp 17; Temp 97.7; Pulse Ox 96% ; Pain 8/10; ll1 ED Course: 12:45 Patient arrived in ED. as 12:54 Gustavo Reed MD is Attending Physician. [facility] 13:02 Triage completed. 1 13:04 Mikhail Otero, RN is Primary Nurse. [facility] 13:04 Arm band placed on Patient placed in an exam room, on a stretcher. 1 13:06 Patient has correct armband on for positive identification. Bed in low position. Call [facility] light in reach. Side rails up X 1. Pulse ox on. NIBP on. 13:53 Chest Pa And Lat (2 Views) XRAY In Process Unspecified. EDMS Administered Medications: No medications were administered Outcome: 15:10 Discharge ordered by . [facility] 15:30 Patient left the ED. aa5 Signatures: Dispatcher [employer] EDMS Ada Marley Audri RN RN aa5 Mikhail Otero RN RN 1 Gustavo Rede MD MD [facility]
[2019-07-31 15:46] VITALS: BP 159/82; TEMP 97.7; O2SAT 96
== END 2019-07-31 15:30 | disposition home or self-care (01) ==
LOC: ER 12:43
DX: B34.9 Viral infection, unspecified (principal); F17.210 Nicotine dependence, cigarettes, uncomplicated
CPT/HCPCS: 71046; 81003; 87070; 87081; 87804; 99283

== ENCOUNTER 2019-08-24 23:59 | Inpatient (IN) | payer OTHER ==
--- OUTSIDE RECORDS SUMMARY | 2019-08-25 00:01 | XMS REPORT | Continuity of Care Document ---
:1960 Author Organization [facility] t Address [address] [place] [address] Dr. Huang. [address] [place] [address] Care Team Providers Name Role Phone Natacha Brewster Attending Clinician Problems This patient has no known problems. Allergies, Adverse Reactions, Alerts This patient has no known allergies or adverse reactions. Medications This patient has no known medications. Procedures This patient has no known procedures. Encounters Start End Encounter Admission Attending Care Care Encounter Source Date/Time Date/Time Type Type Clinicians Facility Department ID 2018-10-21 2018-10-21 Telephone [facility] [id number] 00:00:00 00:00:00 Natacha gNuyen [id number] Ade [id number] [place] [id number] [facility] [address] [facility] Results This patient has no known results.
[2019-08-25] MEDS ORDERED: NA CHLORIDE 0.9% 1,000 ML ONE ×2 (00:27→06:00)
[2019-08-25] MEDS ORDERED: NA CHLORIDE 0.9% 2,000 ML ONE (00:30)
[2019-08-25] MEDS ORDERED: RSI MEDICATION KIT IV ONE (00:31)
[2019-08-25 00:42] LABS: Absolute Lymphocytes (CBC) 3.5 K/uL (0.7-4.9); Basophils % 0.3 % (0-1.3); Hematocrit 41.9 % (36.0-45.0); Lymphocytes % 27.5 % (15.3-44.8); MPV 7.8 fL (7.6-11.3); RBC Red Blood Cell Count 4.41 M/uL (3.86-4.86)
[2019-08-25 00:49] LABS: Protime INR 0.97
[2019-08-25 01:05] LABS: BUN Blood Urea Nitrogen 36 mg/dL (7-18); Bicarbonate 23 mmol/L (21-32); Creatine Phosphokinase 139 U/L (26-192); Glucose Level 201 mg/dL (74-106); Potassium 3.8 mmol/L (3.5-5.1); Sodium Level 137 mmol/L (136-145); Troponin (Emerg Dept Use Only) < 0.02 ng/mL (0.0-0.045)
[2019-08-25 01:08] LABS: Barbiturates NEGATIVE (NEGATIVE); Benzodiazepines NEGATIVE (NEGATIVE); Cocaine NEGATIVE (NEGATIVE); METHAMPHETAM NEGATIVE (NEGATIVE); Methadone NEGATIVE (NEGATIVE); Opiates NEGATIVE (NEGATIVE); Phencyclidine NEGATIVE (NEGATIVE); THC Cannibis NEGATIVE (NEGATIVE)
[2019-08-25 01:18] LABS: Urine Blood NEGATIVE (NEG); Urine Glucose NEGATIVE (NEG); Urine Protein 2+ (NEG)
--- NOTE | 2019-08-25 01:42 | EDPHYS ---
Physician Documentation [facility] Name: Jaimie Amanda Age: 58 yrs Sex: Female : 1960 Arrival Date: 08/25/2019 Time: 00:01 Bed 3 Private MD: ED Physician Villa Byrd HPI: 08/24 00:16 This 58 yrs old Female presents to ER via EMS with complaints of S/S of rn Possible seizure or stroke. 00:16 The patient's problem is reported as altered mental status. Onset: The symptoms/episode rn began/occurred at an unknown time. Duration: This was a single incident. Associated signs and symptoms: Pertinent positives: agitation, confusion. Severity of symptoms: At their worst the symptoms were moderate in the emergency department the symptoms have improved. It is unknown whether or not the patient has had similar symptoms in the past. It is unknown whether or not the patient has recently seen a physician. Per EMS, mother called 911 after heard noises, went to her room, was getting out of bed, then fell onto ground, mother reports no hx of seizures, but medical records indicate she does in PMHx, with oxcarbazepine listed on medication list. EMS arrived, patient on floor, combative, + urinary incontinence, given 5mg versed intranasal for combativeness and possible seizure. . 00:19 EMS reported seemed post-ictal and moving all extremities. . rn Historical: - Allergies: 00:17 Nitroglycerin; lp1 - Home Meds: 00:17 oxcarbazepine 600 mg Oral tab 1 am and 2 pm [Active]; losartan-hydrochlorothiazide lp1 100-25 mg Oral tab 1 tab once daily [Active]; Linzess 290 mcg Oral cap 1 cap once daily [Active]; metformin 500 mg Oral tab 1 tab 2 times per day [Active]; trazodone 100 mg Oral tab 1 tab nightly [Active]; risperidone oral oral [Active]; paroxetine HCl 40 mg Oral tab 1 tab once daily [Active]; omeprazole 40 mg Oral cpDR 1 cap once daily [Active]; clonidine HCl 0.1 mg Oral tab 1 tab 3 times per day [Active]; hydroxyzine HCl 50 mg Oral tab 1 tab BID PRN [Active]; levothyroxine 137 mcg tab 1 tab once daily [Active]; liothyronine 5 mcg Oral tab 1 tab once daily [Active]; naltrexone 50 mg Oral tab 1 tab once daily [Active]; oxybutynin chloride 5 mg Oral tab 1 tab 2 times per day [Active]; - PMHx: 00:17 Anxiety; Depression; Diabetes - NIDDM; etoh abuse; Hypertension; Hypothyroidism; lp1 Seizures; - PSHx: 00:17 Thyroidectomy; Hernia repair; lp1 - Immunization history:: Flu vaccine status is unknown. - Social history:: Smoking status: unknown. - Unable to obtain history due to: altered mental status. ROS: 00:19 Unable to obtain ROS due to altered mental status. rn Exam: 00:19 Constitutional: This is a well developed, well nourished patient who is somnolent s/p rn versed, awakens and moves all 4 extremities to sternal rub Head/Face: + dry blood left nare, no septal hematoma. Eyes: Pupils equal round and reactive to light, no nystagmus, pupils 2mm ENT: No oral trauma Cardiovascular: Regular rate and rhythm. No pulse deficits. Respiratory: Somnolent, ssnoring. No increased work of breathing, no retractions or nasal flaring. Abdomen/GI: soft, non-tender Skin: Warm, dry MS/ Extremity: Pulses equal, no cyanosis. Neuro: Awake and alert, GCS 15 Vital Signs: 00:20 BP 91 / 60; Pulse 69; Resp 12; Temp 96.8; Pulse Ox 91% on R/A; mg2 00:45 BP 101 / 60; Pulse 62; Resp 12; Pulse Ox 100% on 5 lpm NC; mg2 01:08 BP 102 / 70; Pulse 57; Resp 12; Pulse Ox 99% on 5 lpm NC; mg2 01:28 BP 94 / 73; Pulse 54; Resp 12; Pulse Ox 100% on 5 lpm NC; mg2 01:47 BP 102 / 71; Pulse 53; Resp 12; Pulse Ox 97% on 5 lpm NC; mg2 02:09 BP 106 / 60; Pulse 44; Resp 12; Pulse Ox 100% on 5 lpm NC; mg2 02:29 BP 108 / 63; Pulse 44; Resp 12; Pulse Ox 100% on 5 lpm NC; mg2 02:55 BP 126 / 92; Pulse 65; Resp 16; Pulse Ox 100% on 5 lpm NC; mg2 03:35 BP 94 / 53; Pulse 47; Resp 12; Pulse Ox 100% on 5 lpm NC; mg2 03:54 BP 93 / 55; Pulse 49; Resp 11; Pulse Ox 97% on 5 lpm NC; mg2 06:09 BP 106 / 84; Pulse 56; Resp 12; Pulse Ox 96% on R/A; mg2 07:00 BP 112 / 65; Pulse 41; Resp 12; Pulse Ox 99% on R/A; mg2 Ruby Coma Score: 01:46 Eye Response: to pain(2). Verbal Response: incomprehensible(2). Motor Response: mg2 localizes pain(5). Total: 9. MDM: 00:04 Patient medically screened. rn 00:44 ED course: Pt very sedated from versed administered from EMS. UNable to get meaningful rn exam, spoke with mother, she states has had seizure before, takes seizure medication, also reports no ETOH for atleast 3 years. Mother states went to room because of noise, she was confused and not following commands, she tried to help her but fell onto ground. EMS gave 5mg versed, respiratory depression being monitored. . ED course: Presentation most consistent with seizure given AMS, urinary incontinence, combativeness, hx of seizure, and neg CT head. UNable to get exam at this point 2/2 over sedation from EMS versed, will continue to monitor. . 01:26 ED course: Spoke multiple times with mother, reports recently patient with rn vomiting/diarrhea, attributed to bad meat. Mother also reports last time she saw her before going to bed was around 8PM, but was laying on couch. CT head no acute findings, versed is slowly wearing off, is mumbling and attempting to sit up, moving all 4 extremities, but still too sedated to answer questions or follow commands. Other than gross motor function, unable to assess accurately her mental status. . 01:40 Differential diagnosis: CVA, TIA, metabolic disorder, acute kidney injury, seizure, rn syncope. Data reviewed: vital signs, nurses notes, lab test result(s), EKG, radiologic studies, CT scan, and as a result, I will admit patient. Counseling: I had a detailed discussion with the patient and/or guardian regarding: the historical points, exam findings, and any diagnostic results supporting the discharge/admit diagnosis, lab results, radiology results, the need for further work-up and treatment in the hospital. Response to treatment: the patient's symptoms have mildly improved after treatment, and as a result, I will admit patient. Admission orders: after a detailed discussion of the patient's condition and case, the admit orders are written by me. ED course: Pt slowly improving, still unable to get good mental status exam due to sedatives, which seem to be wearing off, no acute findings on imaging/ct head, + acute kidney injury. Will admit to Dr. Gustafson in ICU for further testing, neuro consult, MRI in morning to rule out CVA, and further care. . 02:50 ED course: Mother notified me of heavy smoking habit, never diagnosed with COPD, given rn slowed respirations, possible CO2 narcosis as secondary effect, decision made to given flumazenil, after 2 0.1mg doses, patient became more alert and began kicking covers off of her, but still not back to mental baseline. Will get ABG to check CO2 levels. . 03:07 ED course: CO2 46, will continue to observe respiratory status and allow versed to wear rn off.. 06:03 ED course: Pt getting up, trying to get out of bed, nursing found her sitting on edge rn of bed. Still sedated but breathing better, acting encephalopathic, no seizures here, loaded with keppra, ammonia sent due to drinking history. Will need MRI later today to rule out CVA. TPA not indicated given presentation outside of window (onset per mother 8PM), no focal neurological findings, and inability to get reliable exam due to prolonged sedation with versed from EMS. . 08/24 00:14 Order name: UDS; Complete Time: rn 08/24 00:14 Order name: Troponin (emerg Dept Use Only); Complete Time: rn 08/24 00:14 Order name: CPK; Complete Time: 08/24 00:14 Order name: Basic Metabolic Panel; Complete Time: rn 08/24 00:14 Order name: CBC with Diff; Complete Time: rn 08/24 00:14 Order name: Protime (+inr); Complete Time: : rn 08/24 00:14 Order name: Ptt, Activated; Complete Time: :08/24 00:19 Order name: ETOH Level; Complete Time: 08/24 00:33 Order name: Glucose, Ancillary Testing; Complete Time: 01:04 EDMS 08/24 00:45 Order name: Urine Dipstick--Ancillary (enter results); Complete Time: 01:30 ar5 08/24 03:16 Order name: ABG Arterial Blood Gas; Complete Time: 03:37 EDMS 08/24 05:50 Order name: AMMONIA mg2 08/24 06:26 Order name: Ammonia EDMS 08/24 00:14 Order name: Stroke CXR 1 View rn 08/24 00:14 Order name: EKG; Complete Time: 00:17 rn 08/24 00:14 Order name: Accucheck; Complete Time: 00:21 rn 08/24 00:14 Order name: Cardiac monitoring; Complete Time: 00:21 rn 08/24 00:14 Order name: EKG - Nurse/Tech; Complete Time: 00:21 rn 08/24 00:18 Order name: Ct Stroke Brain Wo Cont EDMS 08/24 03:31 Order name: CONS Pharmacy Consult EDDE 08/24 03:31 Order name: CONS Physician Consult EDDE 08/24 03:31 Order name: Regular EDMS 08/24 03:31 Order name: EEG Request EDDE 08/24 00:14 Order name: IV Saline Lock; Complete Time: 00:21 rn 08/24 00:14 Order name: Labs collected and sent; Complete Time: 00:21 rn 08/24 00:14 Order name: NPO; Complete Time: 00:21 rn 08/24 00:14 Order name: O2 Per Protocol; Complete Time: 00:21 rn 08/24 00:14 Order name: O2 Sat Monitoring; Complete Time: 00: rn 08/24 00:14 Order name: Stroke Swallow Screen; Complete Time: 00:57 rn Administered Medications: 00:26 Drug: NS 0.9% 1000 ml Route: IV; Rate: 1000 ml; Site: right antecubital; lp1 01:24 Follow up: Response: No adverse reaction; IV Status: Completed infusion; IV Intake: ea 1000ml 01:24 Drug: NS 0.9% 1000 ml Route: IV; Rate: 1 bolus; Site: right antecubital; ea 02:25 Follow up: Response: No adverse reaction; IV Status: Completed infusion; IV Intake: mg2 1000ml 02:24 Drug: Keppra 1000 mg Route: IV; Rate: calculated rate; Site: left hand; mg2 02:56 Follow up: Response: No adverse reaction; IV Status: Completed infusion; IV Intake: mg2 100ml 02:43 Drug: Flumazenil 0.1 mg Route: IVP; Site: right antecubital; mg2 02:55 Follow up: Response: No adverse reaction; patient became conscious mg2 02:44 Drug: Flumazenil 0.1 mg Route: IVP; Site: right antecubital; mg2 02:56 Follow up: Response: No adverse reaction; patient became conscious mg2 03:28 Drug: NS 0.9% 1000 ml Route: IV; Rate: 1000 ml; Site: right antecubital; mg2 05:17 Follow up: Response: No adverse reaction; IV Status: Completed infusion; IV Intake: mg2 1000ml Disposition: 08/25/19 01:42 Hospitalization ordered by Joseph Gustafson for Inpatient Admission. Preliminary diagnosis are Altered mental status, unspecified, Possible seizure, Acute kidney failure. - Bed requested for Intensive Care Unit. - Status is Inpatient Admission. rb1 - Condition is Fair. - Problem is new. - Symptoms have improved. Critical care time excluding procedures: 01:40 Critical care time: Bedside Care: 25 minutes, Family Intervention: 5 minutes. Total rn time: 30 minutes Signatures: Dispatcher [employer] EDMS Villa Byrd MD MD rn Pena, Laura, RN RN lp1 Mali Milian RN RN tl1 Kenzie Ahmadi, RN RN rb1 Myrtle Henry RN RN ea Gardose, Michele, RN RN mg2 Corrections: (The following items were deleted from the chart) 00:20 00:15 CT-STROKE BRAIN W/O CONTRAST+CT.RAD.BRZ ordered. [facility] EDMS 03:48 01:42 Hospitalization Ordered by Joseph Gustafson MD for Inpatient Admission. Preliminary tl1 diagnosis is Altered mental status, unspecified; Possible seizure; Acute kidney failure. Bed requested for Intensive Care Unit. Status is Inpatient Admission. Condition is Fair. Problem is new. Symptoms have improved. rn 05:53 03:48 08/25/2019 01:42 Hospitalization Ordered by Joseph Gustafson MD for Inpatient tl1 Admission. Preliminary diagnosis is Altered mental status, unspecified; Possible seizure; Acute kidney failure. Bed requested for [facility] ER HOLD. Status is Inpatient Admission. Condition is Fair. Problem is new. Symptoms have improved. tl1 07:27 05:53 08/25/2019 01:42 Hospitalization Ordered by Joseph Gustafson MD for Inpatient rb1 Admission. Preliminary diagnosis is Altered mental status, unspecified; Possible seizure; Acute kidney failure. Bed requested for Intensive Care Unit. Status is Inpatient Admission. Condition is Fair. Problem is new. Symptoms have improved. tl1
--- NOTE | 2019-08-25 01:42 | ER ---
Nurse's Notes [facility] Name: Jaimie Amanda Age: 58 yrs Sex: Female : 1960 Arrival Date: 08/25/2019 Time: 00:01 Bed 3 Private MD: Diagnosis: Altered mental status, unspecified;Possible seizure;Acute kidney failure Presentation: 08/24 00:07 Chief complaint: EMS states: Called for patient for possible stroke; Patient's mother lp1 states finding patient on the floor, attempted to help her up but patient became combative; Per EMS, patient combative on arrival of EMS, administered versed IN; Per patient's mother, last normal at 2200. Coronavirus screen: Proceed with normal triage. Ebola Screen: No symptoms or risks identified at this time. Onset of symptoms was August 25, 2019. 00:07 Method Of Arrival: EMS: [facility] lp1 00:07 Acuity: ZHEN 1 lp1 00:45 Initial Sepsis Screen: Does the patient meet any 2 criteria? No. Patient's initial mg2 sepsis screen is negative. Does the patient have a suspected source of infection? No. Patient's initial sepsis screen is negative. Risk Assessment: Do you want to hurt yourself or someone else? Patient reports no desire to harm self or others. Historical: - Allergies: 00:17 Nitroglycerin; lp1 - Home Meds: 00:17 oxcarbazepine 600 mg Oral tab 1 am and 2 pm [Active]; losartan-hydrochlorothiazide lp1 100-25 mg Oral tab 1 tab once daily [Active]; Linzess 290 mcg Oral cap 1 cap once daily [Active]; metformin 500 mg Oral tab 1 tab 2 times per day [Active]; trazodone 100 mg Oral tab 1 tab nightly [Active]; risperidone oral oral [Active]; paroxetine HCl 40 mg Oral tab 1 tab once daily [Active]; omeprazole 40 mg Oral cpDR 1 cap once daily [Active]; clonidine HCl 0.1 mg Oral tab 1 tab 3 times per day [Active]; hydroxyzine HCl 50 mg Oral tab 1 tab BID PRN [Active]; levothyroxine 137 mcg tab 1 tab once daily [Active]; liothyronine 5 mcg Oral tab 1 tab once daily [Active]; naltrexone 50 mg Oral tab 1 tab once daily [Active]; oxybutynin chloride 5 mg Oral tab 1 tab 2 times per day [Active]; - PMHx: 00:17 Anxiety; Depression; Diabetes - NIDDM; etoh abuse; Hypertension; Hypothyroidism; lp1 Seizures; - PSHx: 00:17 Thyroidectomy; Hernia repair; lp1 - Immunization history:: Flu vaccine status is unknown. - Social history:: Smoking status: unknown. - Unable to obtain history due to: altered mental status. Screenin:43 Abuse screen: Denies threats or abuse. Denies injuries from another. Nutritional mg2 screening: No deficits noted. Tuberculosis screening: No symptoms or risk factors identified. Fall Risk Secondary diagnosis (15 points) seizures, IV access (20 points). Mental Status- Overestimates/Forgets Limitations (15 pts.). 00:56 Pt only responds to painful stimulus The patient is not alert, or is unable to follow ea commands. The patient failed the bedside swallow screening. The patient will be kept NPO until cleared by Speech Therapy or Physician. Assessment: 00:15 General: Appears unconscious. Behavior is unresponsive. Pain: Unable to use pain scale. mg2 Patient is unresponsive. Neuro: Level of Consciousness is unresponsive, Oriented to none. Cardiovascular: Capillary refill < 3 seconds Patient's skin is warm and dry. Respiratory: Respiratory effort is shallow, Respiratory pattern is regular, symmetrical, snoring. GI: No signs and/or symptoms were reported involving the gastrointestinal system. : No signs and/or symptoms were reported regarding the genitourinary system. EENT: No signs and/or symptoms were reported regarding the EENT system. Derm: Skin is intact, is healthy with good turgor, Skin is pink, warm \T\ dry. normal. Musculoskeletal: Circulation, motion, and sensation intact. Capillary refill < 3 seconds. 00:35 Reassessment: Pt hard to arouse, lips cyanotic, apneic episode noted, provider ea notified. Nasal trumpet placed in pt right nare. Pt placed on O2. Respiratory at bedside. 01:10 Reassessment: Mother remains at bedside. Pt requiring one on one to stimulate pt to ea breath. Respirations shallow, bradypnea noted, pt responds to painful stimulus. Respiratory at bedside. 01:25 Reassessment: Pt more awake, mumbling to mother. Pt reacts to painful stimulus and loud ea verbal stimulus. Respiration rate improved. Mother remains at bedside. 02:24 Reassessment: patient still looks deeply sedated. family at the bedside. mg2 02:54 Reassessment: patient woke up, eyes open, trying to talk/mumble words after given 2 mg2 doses of flumzenil. 03:36 Reassessment: patient is back to being deeply sedated again, snoring, responding to mg2 pain. 04:30 Reassessment: documentation continued in [facility]. mg2 07:00 Reassessment: seen by Janay Andrews in ED and ordered to give the Keppra \T\ 1100 in [facility]. mg2 07:00 Reassessment: ADMIT IN PROCESS, REPORT BY PREVIOUS SHIFT. PT ADMIT FOR AMS. PT REMAINS bp ALTERED, EMOTIONALLY LABILE, AOx1. Vital Signs: 00:20 BP 91 / 60; Pulse 69; Resp 12; Temp 96.8; Pulse Ox 91% on R/A; mg2 00:45 BP 101 / 60; Pulse 62; Resp 12; Pulse Ox 100% on 5 lpm NC; mg2 01:08 BP 102 / 70; Pulse 57; Resp 12; Pulse Ox 99% on 5 lpm NC; mg2 01:28 BP 94 / 73; Pulse 54; Resp 12; Pulse Ox 100% on 5 lpm NC; mg2 01:47 BP 102 / 71; Pulse 53; Resp 12; Pulse Ox 97% on 5 lpm NC; mg2 02:09 BP 106 / 60; Pulse 44; Resp 12; Pulse Ox 100% on 5 lpm NC; mg2 02:29 BP 108 / 63; Pulse 44; Resp 12; Pulse Ox 100% on 5 lpm NC; mg2 02:55 BP 126 / 92; Pulse 65; Resp 16; Pulse Ox 100% on 5 lpm NC; mg2 03:35 BP 94 / 53; Pulse 47; Resp 12; Pulse Ox 100% on 5 lpm NC; mg2 03:54 BP 93 / 55; Pulse 49; Resp 11; Pulse Ox 97% on 5 lpm NC; mg2 06:09 BP 106 / 84; Pulse 56; Resp 12; Pulse Ox 96% on R/A; mg2 07:00 BP 112 / 65; Pulse 41; Resp 12; Pulse Ox 99% on R/A; mg2 Ruby Coma Score: 01:46 Eye Response: to pain(2). Verbal Response: incomprehensible(2). Motor Response: mg2 localizes pain(5). Total: 9. ED Course: 00:01 Patient arrived in ED. ds1 00:04 Villa Byrd MD is Attending Physician. rn 00:11 Triage completed. lp1 00:15 Hermann Andrade, CATY is Primary Nurse. mg2 00:22 Ct Stroke Brain Wo Cont In Process Unspecified. EDMS 00:35 Straight cath inserted, using sterile technique, Returned clear yellow urine. Patient mg2 tolerated well. 00:44 No provider procedures requiring assistance completed. Inserted saline lock: 20 gauge mg2 in left hand, using aseptic technique. 00:44 Maintain EMS IV. Dressing intact. Good blood return noted. Site clean \T\ dry. Gauge \T\ mg 2 site: 18 \T\ RAC. 00:44 Arm band placed on. mg2 00:44 Patient has correct armband on for positive identification. Side rails up X2. mg2 01:01 Stroke CXR 1 View In Process Unspecified. EDMS 01:41 Joseph Gustafson MD is Hospitalizing Provider. rn 02:27 Patient admitted, IV remains in place. mg2 07:18 Patient admitted, IV remains in place. rb1 Administered Medications: 00:26 Drug: NS 0.9% 1000 ml Route: IV; Rate: 1000 ml; Site: right antecubital; lp1 01:24 Follow up: Response: No adverse reaction; IV Status: Completed infusion; IV Intake: ea 1000ml 01:24 Drug: NS 0.9% 1000 ml Route: IV; Rate: 1 bolus; Site: right antecubital; ea 02:25 Follow up: Response: No adverse reaction; IV Status: Completed infusion; IV Intake: mg2 1000ml 02:24 Drug: Keppra 1000 mg Route: IV; Rate: calculated rate; Site: left hand; mg2 02:56 Follow up: Response: No adverse reaction; IV Status: Completed infusion; IV Intake: mg2 100ml 02:43 Drug: Flumazenil 0.1 mg Route: IVP; Site: right antecubital; mg2 02:55 Follow up: Response: No adverse reaction; patient became conscious mg2 02:44 Drug: Flumazenil 0.1 mg Route: IVP; Site: right antecubital; mg2 02:56 Follow up: Response: No adverse reaction; patient became conscious mg2 03:28 Drug: NS 0.9% 1000 ml Route: IV; Rate: 1000 ml; Site: right antecubital; mg2 05:17 Follow up: Response: No adverse reaction; IV Status: Completed infusion; IV Intake: mg2 1000ml Intake: 01:24 IV: 1000ml; Total: 1000ml. ea 02:25 IV: 1000ml; Total: 2000ml. mg2 02:56 IV: 100ml; Total: 2100ml. mg2 05:17 IV: 1000ml; Total: 3100ml. mg2 Outcome: 01:42 Decision to Hospitalize by Provider. rn 07:07 Admitted to ICU accompanied by nurse, accompanied by tech, via stretcher, room 1, on mg2 monitor, with chart, Report called to CATY Jolley 07:07 Condition: stable 07:07 Instructed on the need for admit, Demonstrated understanding of instructions. 07:18 Admitted to ICU accompanied by nurse, accompanied by tech, via stretcher, room 1, on rb1 monitor, with chart. 07:18 Condition: stable 07:18 Instructed on the need for admit. 07:18 Patient left the ED. rb1 Signatures: Dispatcher [facility] ds1 Villa Byrd MD MD rn Pena, Laura, RN RN lp1 Kenzie Ahmadi, RN RN rb1 Myrtle Henry, Sadiq Alas RN, ea, RN CATY bp Hermann Andrade, CATY RN mg2 Corrections: (The following items were deleted from the chart) 00:30 00:07 Acuity: ZHEN 2 lp1 lp1 00:56 00:35 Reassessment: Pt hard to arouse, lips cyanotic, apneic episode noted, provider ea notified. Nasal trumpet placed in pt right nare. Pt placed on O2. ea 01:12 00:20 BP 91 / 60; Pulse 69bpm; Resp 16bpm; Pulse Ox 91% RA; Temp 96.8F; mg2 mg2 01:12 00:45 BP 101 / 60; Pulse 62bpm; Resp 15bpm; Pulse Ox 100% 5 lpm Nasal Cannula; mg2 mg2 01:26 01:25 Reassessment: Pt more awake, mumbling to mother. Pt reacts to painful stimulus ea and loud verbal stimulus. Respiration rate improved. ea 03:39 03:35 Pulse 47bpm; Resp 12bpm; Pulse Ox 100% 5 lpm Nasal Cannula; mg2 mg2 03:54 03:54 BP 93 / 55; Pulse 45bpm; Resp 11bpm; Pulse Ox 97% 5 lpm Nasal Cannula; mg2 mg2 07:28 07:27 Patient left the ED. rb1 rb1
[2019-08-25] MEDS ORDERED: NA CHLORIDE 0.9% 100 ML IV ONE (02:29)
[2019-08-25] MEDS ORDERED: LEVETIRACETAM 500 MG/5 ML VIAL IV ONE (02:29)
[2019-08-25] MEDS ORDERED: FLUMAZENIL 0.1 MG/ML (5 mL VIAL) IV ONE (02:47)
[2019-08-25 03:17] LABS: Arterial Blood Carboxyhemoglob 1.2 % (0-1.5); Blood O2 Saturation 94.7 % (92-98.5)
[2019-08-25] MEDS ORDERED: ACETAMINOPHEN 500 MG TAB PO PRN (03:28)
[2019-08-25] MEDS: NA CHLORIDE 0.9% 1,000 ML IV SCH ×2 (04:00→14:00)
[2019-08-25 05:19] VITALS: BMI 26.6
[2019-08-25] MEDS ORDERED: levETIRAcetam 500 MG in NA CHLORIDE 0.9% 100 ML IV SCH ×2 (06:00→09:00)
--- NOTE | 2019-08-25 07:24 | EKG ---
Test Date: 2019-08-25 Test Time: 00:19:25 Hip Hop Artist: TT MEASUREMENT RESULTS: Intervals: Rate: 70 MI: 164 QRSD: 80 QT: 452 QTc: 488 [place]: P: 60 MI: 164 QRS: 72 T: 65 INTERPRETIVE STATEMENTS: Normal sinus rhythm Prolonged QT Abnormal ECG Compared to ECG 07/03/2019 06:36:25 Prolonged QT interval now present Electronically Signed On 08-25-19 07:24:02 CDT by Daniel Cespedes
--- NOTE | 2019-08-25 07:40 | P.HP ---
Certification for Inpatient Patient admitted to: Observation With expected LOS: <2 Midnights Patient will require the following post-hospital care: None Practitioner: I am a practitioner with admitting privileges, knowledge of patient current condition, hospital course, and medical plan of care. Services: Services provided to patient in accordance with Admission requirements found in Title 42 Section 412.3 of the Code of Federal Regulations Patient History Date of Service: 08/25/19 Reason for admission: Altered mental status/seizures History of Present Illness: Patient is a 58-year-old female came to the hospital with altered mentation. Patient was at home with her mother when her mom noticed that she was not looking well. She walked her to the bedroom from the living room where she later in bed. A few min later she heard some noises and her daughter's bedroom so she went in to check on her and found her to be obtunded. She has done that prior when she had a seizure & when she is in her postictal state she starts behaving in a confused and combative manner. EMS was called and they appeals assistant Versed on the scene. She was brought into the emergency room were she was worked up for possible seizures. In the past, the seizures were related to alcoholism. However, she has not been drinking. She had been sick a few weeks ago with pharyngitis. Her strep screen was negative. She did not have a Monospot test performed. Will further work up her altered mentation. Patient is very lethargic and she required a nasal trumpet for airway protection. At this time, patient will be admitted to the hospital for further evaluation. Because of her respiratory condition, we will monitor her in the intensive care unit. Patient has not been having fevers. Family denies any history of meningismus. There was some headache going on for the last couple of days which is not unusual for the patient. Will continue to monitor patient closely and worker for her altered mental status. Allergies nitroglycerin Adverse Reaction (Verified 07/05/18 06:27) severe hypotension Home Medications: Clonidine HCl [Catapres*] 0.2 mg PO BID 07/05/18 Levothyroxine Sodium 137 mcg PO DAILY 07/05/18 Linaclotide [Linzess] 290 mcg PO DAILY 07/05/18 Losartan/Hydrochlorothiazide [Losartan-Hctz 100-25 mg Tab] 1 tab PO DAILY 07/05/18 Metformin ER [Glucophage ER*] 500 mg PO DAILY 07/05/18 OXcarbazepine [Oxcarbazepine] 2 tab PO BEDTIME 07/05/18 OXcarbazepine [Oxcarbazepine] 600 mg PO DAILY 07/05/18 Omeprazole [Prilosec] 40 mg PO DAILY 07/05/18 Ondansetron [Zofran (Odt)*] 8 mg PO TID PRN 07/05/18 Oxybutynin Chloride [Ditropan*] 5 mg PO DAILY 07/05/18 PARoxetine HCl [Paroxetine HCl] 40 mg PO DAILY 07/05/18 Trazodone HCl 100 mg PO BEDTIME 07/05/18 risperiDONE [Risperdal 1 mg tab*] 1 mg PO BID 07/05/18 Baclofen [Lioresal*] 10 mg PO TID 08/25/19 Dicyclomine HCl 20 mg PO TID 08/25/19 Tramadol HCl [Ultram] 50 mg PO Q6H PRN 08/25/19 - Past Medical/Surgical History Has patient received pneumonia vaccine in the past: No Diabetic: No -: Hepatitis -: Anxiety -: HTN -: Hypothyroidism -: Alcoholic induce seizures -: Thyroidectomy -: Plastic surgery breast -: hernia repair - Family History Mother Medical History: Hypertension, Diabetes, Cancer Notes: Thyroid, Knee replacement Father Medical History: Heart disease, Hypertension, Diabetes - Social History Smoking Status: Current every day smoker Alcohol use: No CD- Drugs: No Caffeine use: Yes Place of Residence: Home Review of Systems 10-point ROS is otherwise unremarkable Physical Examination - Vital Signs Temperature: 98.5 F Blood Pressure: 91/54 Pulse: 48 Respirations: 12 Pulse Ox (%): 100 - Physical Exam General: Confused, Unresponsive HEENT: Atraumatic, PERRLA, Mucous membr. moist/pink, EOMI, Sclerae nonicteric Neck: Supple, 2+ carotid pulse no bruit, No LAD, Without JVD or thyroid abnormality Respiratory: Clear to auscultation bilaterally, Normal air movement Cardiovascular: Regular rate/rhythm, Normal S1 S2, No murmurs Gastrointestinal: Normal bowel sounds, Soft and benign, Non-distended, No tenderness Musculoskeletal: No clubbing, No swelling, No tenderness Neurological: Other (Patient moves all extremities), Abnormal gait, Abnormal speech, Abnormal strength, Abnormal tone Lymphatics: No axilla or inguinal lymphadenopathy - Studies Laboratory Data (last 24 hrs) 08/25/19 00:15: PT 11.5, INR 0.97, APTT 26.9 08/25/19 00:15: WBC 12.6 H, Hgb 13.7, Hct 41.9, Plt Count 345 08/25/19 00:15: Sodium 137, Potassium 3.8, BUN 36 H, Creatinine 2.39 H, Glucose 201 H Assessment & Plan - Problems (Diagnosis) (1) Altered mental status Current Visit: Yes Status: Acute (2) Seizure Current Visit: Yes Status: Acute (3) Postictal state Current Visit: Yes Status: Acute (4) History of bipolar disorder Current Visit: Yes Status: Acute - Plan Plan: 1. Antiepileptics; she was giving Keppra. But with her history of psychiatric issues will give her Depakote q.8 hr. Continue Tegretol and check Tegretol level 2. Anxiolytics 3. Resume her psych medications 4. Neurology consultation 5. MRI of the brain 6. Renal ultrasound 7. Nephrology consultation 8. May consider psychiatry consultation if she continues to have agitation 9. Check LFTs and EBV titers as well as ammonia level 10. UA with microscopy and monitor for infectious etiology 11. GI and DVT prophylaxis Discharge Plan: Home Plan to discharge in: Greater than 2 days - Advance Directives Does patient have a Living Will: No Does patient have a Durable POA for Healthcare: No - Code Status/Comfort Care Code Status Assessed: Yes Code Status: Full Code Critical Care: Yes Time Spent Managing PTS Care (In Minutes): 45
[2019-08-25] MEDS: LORazepam 2 MG/ML VIAL IV PRN ×5 (07:50→18:46)
[2019-08-25] MEDS ORDERED: LORazepam 2 MG/ML VIAL ONE (07:52)
[2019-08-25] MEDS ORDERED: ZIPRASIDONE MESYLA 20 MG/VIAL IM ONE ×2 (07:58→20:02)
[2019-08-25] MEDS: carBAMazepine 200 MG TAB PO SCH ×3 (09:00→21:00)
[2019-08-25] MEDS ORDERED: NA CHLORIDE 0.9% 500 ML IV ONE (09:00)
--- NOTE | 2019-08-25 09:30 | RAD REPORT ---
EXAM DESCRIPTION: RAD - Chest Single View - 08/25/2019 1:00 am CLINICAL HISTORY: AMS Chest pain. COMPARISON: Chest Pa And Lat (2 Views) dated 07/31/2019; Chest Single View dated 11/02/2018; Chest Sin gle View dated 07/05/2018; Chest Single View dated 11/20/2016 FINDINGS: Portable technique limits examination quality. Small opacity in the left lung base laterally is seen may represent a small infiltrate or pleural flu id. The lungs are otherwise clear. The heart is normal in size. No displaced fractures.
[2019-08-25] MEDS: VALPROATE SODIUM INJ 500 MG in NA CHLORIDE 0.9% 100 ML IV SCH ×2 (10:37→17:33)
[2019-08-25] MEDS: CEFTRIAXONE/SWI 2gm 2 GM/20 ML SYR IV SCH (10:37)
--- NOTE | 2019-08-25 10:39 | RAD REPORT ---
EXAM DESCRIPTION: CT Head Without Intravenous Contrast CLINICAL HISTORY: The patient is 58 years old and is Female; AMS TECHNIQUE: Axial computed tomography images of the head/brain without intravenous contrast. Sagitt al and coronal reformatted images were created and reviewed. This CT exam was performed using one o r more of the following dose reduction techniques: automated exposure control, adjustment of the mA and/or kV according to patient size, and/or use of iterative reconstruction technique. COMPARISON: CT of the head November 02, 2018 FINDINGS: BRAIN: Mild frontal atrophy is present. The sloan-white differentiation is maintained. No intracranial hemorrhage, mass effect, or midline shift is seen. There are no extra-axial fluid colle ctions. VENTRICLES: Unremarkable. No ventriculomegaly. BONES/JOINTS: No acute fracture. SOFT TISSUES: Unremarkable. SINUSES: Unremarkable as visualized. No acute sinusitis. MASTOID AIR CELLS: Unremarkable as visualized. No mastoid effusion. ORBITS: Unremarkable as visualized. IMPRESSION: No acute intracranial findings. Electronically signed by: Nuvia Bloom MD 08/25/2019 12:32 AM CDT Due to temporary technical issues with the PACS/Fluency reporting system, reports are being signed by the in house radiologist without review as a courtesy to ensure prompt reporting. The interpreting r adiologist is fully responsible for the content of the report.
[2019-08-25 11:38] LABS: Urine Protein/Creatinine Ratio 0.27 ratio (<0.15)
[2019-08-25] MEDS ORDERED: WATER FOR INJ,STERILE 10 ML IM PRN ×2 (12:13→20:02)
[2019-08-25] MEDS ORDERED: ZIPRASIDONE MESYLA 20 MG/VIAL IM PRN (12:13)
--- NOTE | 2019-08-25 12:15 | P.PN ---
Subjective Date of Service: 08/25/19 Primary Care Provider: Unknown Chief Complaint: Altered mental status/seizures Subjective: Other (Rapid response called as the patient was becoming very agitated. Patient required 2 mg Ativan IV. Upper extremity restraints placed to prevent injury to patient and nurses. Patient now relaxed.) Physical Examination - Vital Signs Temperature: 98.5 F Blood Pressure: 91/54 Pulse: 48 Respirations: 12 Pulse Ox (%): 100 - Physical Exam General: Other (During rapid response patient was very agitated. Patient required Ativan. Patient also required restraints. Patient was very altered. She was not at her baseline.) Neck: Supple Respiratory: Expiratory wheezes Cardiovascular: Normal pulses, Regular rate/rhythm Gastrointestinal: No ascites, No tenderness, No masses - Studies Laboratory Data (last 24 hrs) 08/25/19 00:15: PT 11.5, INR 0.97, APTT 26.9 08/25/19 00:15: WBC 12.6 H, Hgb 13.7, Hct 41.9, Plt Count 345 08/25/19 00:15: Sodium 137, Potassium 3.8, BUN 36 H, Creatinine 2.39 H, Glucose 201 H Medications List Reviewed: Yes Assessment & Plan Discharge Plan: Home Plan to discharge in: Greater than 2 days Physician Review Additional Text: Impression: Acute encephalopathy metabolic versus toxic versus other complicated with history of seizure disorder need to rule out CVA Possible underlying UTI with possible underlying neurogenic bladder Acute renal failure likely related to dehydration versus other Diabetes mellitus type 2 Hypertension Depression with anxiety Plan: Acute encephalopathy metabolic versus toxic versus other complicated with history of seizure disorder need to rule out CVA: Responded to rapid response. Patient given Ativan IV 2 mg. Patient required upper extremity restraints to protect patient and nurse. Patient now sedated. History obtained from mother. Case discussed at length with nephrology. Acute renal failure noted. Possible underlying UTI with suspected history of neurogenic bladder. Will obtain renal ultrasound. Bryant catheter placed. Will continue with IV hydration. Will hold metformin, losartan and hydrochlorothiazide. Continue monitor closely. Provide IV antibiotic therapy. Will make sure to obtain urine and blood cultures. Will need to evaluate for possible seizure. Neurology also consulted. Will check EEG. Will need to rule out CVA. Will obtain MRI of brain without contrast, echo, carotid Doppler. Will continue to reassess and monitor closely. Await further recommendations from nephrology and neurology. Critical care -30 min. Possible underlying UTI with possible underlying neurogenic bladder: Bryant catheter placed. Patient on Rocephin. Blood, urine cultures obtained. Continue with nephrology recommendation. Acute renal failure likely related to dehydration versus other: Case discussed at length with nephrology. Continue as above. Diabetes mellitus type 2: Will monitor Accu-Cheks. Provide sliding scale. Hold metformin. Hypertension: Hold blood pressure medication. Depression with anxiety: Restart home medication but will hold if with increase sedation. Critical Care: Yes (30 min) Time Spent Managing Pts Care (In Minutes): 55
[2019-08-25 12:31] LABS: ALT/SGPT 23 U/L (12-78); AST/SGOT 23 U/L (15-37); Albumin 3.7 g/dL (3.4-5.0); Alkaline Phosphatase 79 U/L (45-117); BUN Blood Urea Nitrogen 27 mg/dL (7-18); Bicarbonate 25 mmol/L (21-32); Bilirubin Total 0.2 mg/dL (0.2-1.0); CKMB Creatine Kinase MB 3.6 ng/mL (0.3-3.6); Folic Acid, (Folate) 17.4 ng/mL (3.1-17.5); Glucose Level 136 mg/dL (74-106); Lipase 53 U/L (73-393); Phosphorus 4.2 mg/dL (2.5-4.9); Potassium 4.3 mmol/L (3.5-5.1); Protein, Total 6.6 g/dL (6.4-8.2); Sodium Level 145 mmol/L (136-145); Troponin I < 0.02 ng/mL (0.0-0.045); Uric Acid 7.4 mg/dL (2.6-6.0)
--- NOTE | 2019-08-25 13:34 | RAD REPORT ---
EXAM DESCRIPTION: US - Renal Ultrasound-Complete - 08/25/2019 1:08 pm CLINICAL HISTORY: Acute renal insufficiency COMPARISON: None. FINDINGS: The right kidney measures 111 cm with an increased echotexture. The left kidney measures 12 cm with an increased echotexture. Hydronephrosis is not seen. The bladder is decompressed and poorly visualized IMPRESSION: Increased renal echotexture consistent with parenchymal disease
--- NOTE | 2019-08-25 15:52 | CON ---
Date of Consultation: 08/25/2019 Reason For Consultation: Elevated BUN and creatinine, fluid management, acidosis, electrolyte imbala nce. History Of Present Illness: All the information has been obtained from the record as patient being s edated, postictal. This is a pleasant 58-year-old female with significant past medical history of se izure, alcohol abuse, status post rehabilitation, diabetes, hypertension, apparently patient recently recovered from alcohol rehabilitation, been doing well. Mother saw her a little bit weak, took her to the bathroom. In the bathroom, patient started having worsening in her mental status and her nois e came to the patient by the mother, found her altered and poorly responsive. EMS was called. In e scene, the patient given versed and transferred to the hospital. In the hospital, primary workup s howed elevation in BUN and creatinine with acidosis. For that reason, we have been consulted. Revie wing the record, apparently the patient as outpatient been on losartan, hydrochlorothiazide, and metf ormin. Patient had back in 2017 one episode of hyponatremia attributed to hydrochlorothiazide and de hydration. After hydration, sodium was normalized at that time. Also, patient apparently had one ep isode of pyelonephritis, left sided, seen by Urology, treated, recovered, but the patient was placed on oxybutynin with questionable apparently of neurogenic bladder. Otherwise, there is no mention for any nonsteroidal upon this admission, there is no IV contrast. Primary workup showed pH of 7.34 with CO2 46, and bicarb 22 with elevation of lactic acid. Allergies: TO NITROGLYCERIN. Home Medications: Include clonidine, fenofibrate, levothyroxine, Linzess, losartan, hydrochlorothiaz brianne, metformin, oxybutynin, oxazepam, omeprazole, Zofran, trazodone, risperidone, amoxicillin clavula harmony. Past Medical History: 1.Hepatitis. 2.Anxiety. 3.Hypothyroidism. 4.Seizure, questionable alcohol induced. 5.Bipolar. Past Surgical History: Includes hernia repair. Family History: Positive for diabetes and hypertension. Social History: Active smoker, ex alcohol. Denied drugs abuse. Review of Systems: None obtainable. Physical Examination: General: When I saw the patient, patient is sleepy. Vital Signs: Blood pressure 112/65, pulse of 41, afebrile. Chest: Clear to auscultation. Heart: S1, S2. Systolic murmur. Abdomen: Soft, nontender. Extremities: Moving 4 extremities without any focalization. Laboratory Data: Back in March, kidney function within normal limit with normal GFR. Upon this ad mission, sodium 137, potassium 3.8, bicarb 23, BUN 36, creatinine 2.3, GFR 21, glucose 201. Calcium 8.9. Ammonia of 16. CK 139. TSH is still pending. WBC 12.6, H and H 13.7 and 41.9, platelets 345. Alcohol level less than 10. Urine drug screen was negative. Urinalysis: Specific gravity of 1.02 0, PC ratio 0.2. ABG; pH 7.34, CO2 46, O2 89, saturation 94, base excess of 0.6. Current Medications: The patient on include IV fluid, ceftriaxone, carbamazepine, Tylenol, Keppra, D epakote, Zofran, normal saline 100 per hour. Assessment And Plan: 1.Acute kidney injury, multifactorial. Obstructive uropathy supported with bladder distention on bladder scan. Superimposed with prerenal. Supported with contraction alkalosis that the patient h as. Superimposed with angiotensin receptor trell and hydrochlorothiazide. Plan: a.I am going to bolus the patient with another 500 of normal saline. We will continue aggressive hy dration for the patient. Given the history of completely normal kidney function and the presence of marginal acidosis and the acuity of the elevation in the creatinine, I am going to go ahead and send for serology. b.Rhabdomyolysis has been ruled out. c.We will send for renal ultrasound. d.We will place a Bryant. 2.Hypertension. Currently blood pressure on the lower side with the presence of acute kidney injury . Hold losartan and hydrochlorothiazide. 3.Non-anion gap metabolic acidosis, multifactorial, secondary to renal failure. 4.Lactic acidosis, metformin. I do not see any need for bicarb supplement. We will start aggressiv e hydration. 5.Contraction alkalosis with non-anion gap metabolic acidosis supported with low pH and elevation in the bicarb. We will bolus the patient. We will start aggressive hydration, discontinue diuresis. 6.Marginal hyponatremia secondary to depletion superimposed with hydrochlorothiazide as above. We w ill start hydration. 7.Altered mental status. Toxicology was negative. Patient has history of seizure. We will follow up with the Primary and Neurology. 8.Questionable urinary tract infection, being on Augmentin as outpatient. Agree with ceftriaxone. We will follow up ultrasound to rule out any complicated urinary tract infection given the history of left pyelonephritis before. Thank you, Wil, for allowing us to participate in the care of your patient. ZORAN Voice ID: [id number] Report ID: [id number]
[2019-08-25] MEDS: MORPHINE 2 MG/ML SYR IV PRN (16:44)
[2019-08-25] MEDS: HALOPERIDOL LACT 5 MG/ML INJ IV PRN (17:32)
--- NOTE | 2019-08-25 18:47 | RAD REPORT ---
EXAM DESCRIPTION: RAD - Abdomen 1 View (KUB) - 08/25/2019 6:18 pm CLINICAL HISTORY: Abdomen pain. FINDINGS: Exam suboptimal secondary to patient motion artifact The bowel gas pattern appears grossly normal.
--- NOTE | 2019-08-25 18:47 | RAD REPORT ---
EXAM DESCRIPTION: Trina Single View08/25/2019 6:18 pm CLINICAL HISTORY: Chest pain COMPARISON: August 25, 2019 FINDINGS: The lungs appear clear of acute infiltrate. The heart is normal size IMPRESSION: No acute abnormalities displayed
[2019-08-25] MEDS: levETIRAcetam 500 MG in NA CHLORIDE 0.9% 100 ML IV SCH (20:57)
--- NOTE | 2019-08-25 22:28 | CON ---
Reason For Consultation: Consultation called because of possible seizure and postictal state. History Of Present Illness: Ms. Amanda is a 58-year-old patient with a long history of psychiatric p roblems. Mother is at the bedside and helped with information. She also has been on several medicat ions for mood and was at home yesterday when reportedly her mother walked through to the bathroom fro m the living room and she later heard noises and when the mother checked on her daughter, she was fou nd to be unresponsive and apparently was having seizure like activity, was confused and combative aft er she come out of the seizure. The mother called the emergency medical services. Patient received Versed and other benzodiazepines to help stop seizure activity. She was brought back to our hospital where she was found to be lethargic and had a nasal trumpet placed for airway protection. She was a dmitted today ICU for monitoring. In ICU, she actually did pull the nasal trumpet out and that was r eplaced. Since that time, she has had multiple rounds of Ativan for significant agitation in [facility] to [facility]. Her head CT scan showed no acute ischemic or hemorrhagic changes. No significant abnor malities were identified. She does have an EEG pending and possible MRI if she is more cooperative. She is followed by the renal service for multiple electrolyte derangements and acidosis. She is rec eiving levetiracetam 500 mg every 12 hours along with the Haldol, Ativan, and she has been on valproi c acid as well as the Geodon. Further, she takes Tegretol 200 mg 3 times daily and is on Rocephin. Past Medical History: Hepatitis, anxiety, hypothyroidism, history of alcohol abuse, seizures, bipola r disorder. Social History: Reportedly smoked and drank alcohol in the past. No recent drug use. Allergies: NITROGLYCERIN. Medications: At home, losartan, hydrochlorothiazide, metformin, oxybutynin, oxazepam, omeprazole, Zo katrina, trazodone, risperidone, amoxicillin, fenofibrate, clonidine, levothyroxine, Linzess. Review of Systems: The patient is not cooperative to get a review of systems. She keeps repeating untie it or loosen it , which is not clear exactly what she is saying, but did sound like one of those phrases. Physical Examination: General: She does appear to have good air movement bilaterally. She does not appear to be guarding n the abdomen. No areas of tenderness noted in the arms and legs and she is moving those equally wel l. Neurologic: She is a very agitated, constantly twisting and turning in bed, moving arms and legs equ ally well, turning from [id number] and saying untie it or remove it. She is not following instruct ions to remain in one position and actually partially pulled the nasal trumpet out and it was removed . She may intermittently calm down for a few seconds and become more agitated. She did receive Ativ an, and after about 3 or so minutes, did tend to come down. She does have normal tone in the arms an d legs. Unable to assess strength, coordination, sensation, or gait. Laboratory Studies: White blood cell count 12.6, hemoglobin 13.7. Arterial blood gas showed pH of 7 .34, pCO2 of 46.6. Chemistries; sodium 145, potassium 4.3, chloride 111, carbon dioxide 25, BUN 27, creatinine 1.02. Lactic acid is 2.8. Procalcitonin less than 0.05. Liver function studies are norm al. Ammonia level is 16. B12 is 455. Serum folate 17.4. Urinalysis shows 2+ protein, 25 urine ran dom protein, otherwise negative. Assessment: 1.Ms. Amanda is a 58-year-old patient with multiple medical problems including many psychiatric cond itions and multiple psychiatric medications. She apparently had seizure-like activity and is admitte d with her postictal state along with likely metabolic encephalopathy. She is treated for systemic i nfection, but procalcitonin has been negative and lactic acid up, probably related to possible seizur e activity. She may be in a postictal state and other possible etiology may be if she has had withdr awal from antiepileptic type medications. She on a previous admission was on a very high dosage of T rileptal and now she is on lower dosage of Tegretol, however, that is not clear. 2.She should have an EEG and brain MRI when more cooperative or less agitated. Patient will be foll owed once those studies can be done. LB/MODL Voice ID: [id number] Report ID: [id number]
[2019-08-25] MEDS ORDERED: HYDROMORPHONE HCL 1 MG/ML INJ IV ONE ×2 (22:33)
[2019-08-25] MEDS ORDERED: HYDROMORPHONE HCL 1 MG/ML INJ ONE (22:44)
[2019-08-26] MEDS: HALOPERIDOL LACT 5 MG/ML INJ IV PRN ×2 (00:23→22:10)
[2019-08-26] MEDS: VALPROATE SODIUM INJ 500 MG in NA CHLORIDE 0.9% 100 ML IV SCH ×2 (00:26→08:39)
[2019-08-26] MEDS: MORPHINE 2 MG/ML SYR IV PRN ×4 (00:49→20:54)
[2019-08-26] MEDS: ZIPRASIDONE MESYLA 20 MG/VIAL IM SCH ×4 (01:34→20:25)
[2019-08-26] MEDS: WATER FOR INJ,STERILE 10 ML IM PRN ×4 (01:35→20:25)
[2019-08-26] MEDS ORDERED: HYDROMORPHONE HCL 1 MG/ML INJ IV ONE ×2 (04:01→17:33)
[2019-08-26] MEDS: NA CHLORIDE 0.9% 1,000 ML IV SCH ×3 (04:18→20:00)
[2019-08-26 04:59] LABS: Basophils % 0.1 % (0-1.3); Hematocrit 39.8 % (36.0-45.0); Lymphocytes % 30.6 % (15.3-44.8); MPV 7.6 fL (7.6-11.3); RBC Red Blood Cell Count 4.21 M/uL (3.86-4.86)
[2019-08-26] MEDS ORDERED: METOPROLOL TARTRATE 5 MG/5 ML INJ IV PRN (05:17)
[2019-08-26 05:19] LABS: Rheumatoid Factor NEG (NEG)
[2019-08-26 05:20] LABS: ALT/SGPT 27 U/L (12-78); AST/SGOT 43 U/L (15-37); Albumin 3.7 g/dL (3.4-5.0); Alkaline Phosphatase 85 U/L (45-117); BUN Blood Urea Nitrogen 13 mg/dL (7-18); Bicarbonate 27 mmol/L (21-32); Bilirubin Total 0.4 mg/dL (0.2-1.0); Glucose Level 92 mg/dL (74-106); Phosphorus 2.6 mg/dL (2.5-4.9); Potassium 3.6 mmol/L (3.5-5.1); Protein, Total 7.4 g/dL (6.4-8.2); Sodium Level 145 mmol/L (136-145)
[2019-08-26] MEDS ORDERED: ZIPRASIDONE MESYLA 20 MG/VIAL IM ONE (05:20)
--- NOTE | 2019-08-26 08:25 | P.PN ---
Subjective Date of Service: 08/26/19 Patient continues to be encephalopathic. Patient not really able to respond in the communicate to us effectively. Still thrashing around whenever Geodon wears off. Review of Systems is unable to be obtained Physical Examination - Vital Signs Temperature: 98.2 F Blood Pressure: 167/121 Pulse: 88 Respirations: 17 Pulse Ox (%): 97 - Physical Exam General: Alert, In no apparent distress, Oriented x3 Respiratory: Clear to auscultation bilaterally, Normal air movement Cardiovascular: Regular rate/rhythm, Normal S1 S2 Gastrointestinal: Normal bowel sounds, Soft and benign, Non-distended, No tenderness Neurological: Sensation intact, Cranial nerves 3-12 intact - Studies Medications List Reviewed: Yes Assessment & Plan - Problems (Diagnosis) (1) Altered mental status Current Visit: Yes Status: Acute (2) Seizure Current Visit: Yes Status: Acute (3) Postictal state Current Visit: Yes Status: Acute (4) History of bipolar disorder Current Visit: Yes Status: Acute - Plan Plan: 1. Antiepileptics; she was given Keppra. But with her history of psychiatric issues will give her Depakote q.8 hr. Continue Tegretol and check Tegretol level 2. Anxiolytics 3. Resume her psych medications 4. Neurology consultation appreciated 5. MRI of the brain 6. Renal ultrasound without any changes 7. Nephrology consultation appreciated 8. May consider psychiatry consultation if she continues to have agitation 9. Check LFTs and EBV titers as well as ammonia level 10. UA with microscopy and monitor for infectious etiology 11. GI and DVT prophylaxis Discharge Plan: Home Plan to discharge in: Greater than 2 days - Advance Directives Does patient have a Living Will: No Does patient have a Durable POA for Healthcare: No - Code Status/Comfort Care Code Status: Full Code Critical Care: Yes Time Spent Managing PTS Care (In Minutes): 35
[2019-08-26] MEDS: CEFTRIAXONE/SWI 2gm 2 GM/20 ML SYR IV SCH (08:40)
[2019-08-26] MEDS: carBAMazepine 200 MG TAB PO SCH ×3 (09:00→20:27)
[2019-08-26] MEDS ORDERED: BISACODYL 10 MG RECTAL SUPP PR ONE (09:30)
[2019-08-26] MEDS: levETIRAcetam 500 MG in NA CHLORIDE 0.9% 100 ML IV SCH (09:35)
[2019-08-26] MEDS ORDERED: TRAZODONE 50 MG TABLET PO PRN (11:07)
--- NOTE | 2019-08-26 11:07 | P.PN ---
Subjective Date of Service: 08/26/19 Primary Care Provider: Unknown Chief Complaint: Altered mental status/seizures Subjective: Other (Patient less agitated today. Patient still required medication for sedation last night.) Physical Examination - Vital Signs Temperature: 98.2 F Blood Pressure: 167/121 Pulse: 88 Respirations: 17 Pulse Ox (%): 97 - Physical Exam General: Alert, Other (Less agitation noted.) HEENT: Atraumatic Neck: Supple Respiratory: Clear to auscultation bilaterally, Normal air movement Cardiovascular: Normal pulses, Regular rate/rhythm Gastrointestinal: Normal bowel sounds, Soft and benign, Non-distended, No tenderness, No masses, No rebound, No guarding Neurological: Other (Less agitation noted today.) - Studies Medications List Reviewed: Yes Assessment & Plan Discharge Plan: Home Plan to discharge in: 72 Hours Physician Review Additional Text: Impression: Acute encephalopathy metabolic versus toxic versus other complicated with history of seizure disorder need to rule out CVA Possible underlying UTI with possible underlying neurogenic bladder Acute renal failure likely related to dehydration versus other Diabetes mellitus type 2 Hypertension Depression with anxiety Plan: Acute encephalopathy metabolic versus toxic versus other complicated with history of seizure disorder need to rule out CVA: Patient less agitated today. Patient still required medication for sedation yesterday and last night. Continue to monitor closely. If the patient is more stable will obtain EEG and MRI of brain. Mother at bedside. She reports no recent alcohol use, drug abuse. Still unsure encephalopathy related to. Pro calcitonin negative. Urine and negative. Blood cultures still negative. Doubt infectious process. Likely metabolic. Continue monitor closely. Will adjust medication accordingly. Will discuss further with nephrology. Chest x-ray and KUB yesterday unremarkable. Patient appears constipated as per mother. Will provide medication. Possible underlying neurogenic bladder: Bryant catheter placed. Patient on Rocephin. Blood, urine cultures negative. Will discontinue antibiotic therapy.. Continue with nephrology recommendation. Acute renal failure likely related to dehydration versus other: This improved with the with IV hydration. Continue monitor closely. Will discuss further with nephrology. Diabetes mellitus type 2: Will monitor Accu-Cheks. Provide sliding scale. Hold metformin. Hypertension: Will review medication. May need to start medication for blood pressure. Depression with anxiety: Medications restarted. Time Spent Managing Pts Care (In Minutes): 55
[2019-08-26] MEDS: LORazepam 2 MG/ML VIAL IV PRN ×6 (11:31→22:47)
[2019-08-26] MEDS: LOSARTAN POTASSIUM 50 MG TABLET PO SCH ×2 (11:51→20:26)
--- NOTE | 2019-08-26 12:22 | P.PN ---
Subjective Date of Service: 08/26/19 Primary Care Provider: Unknown Chief Complaint: Altered mental status/seizures Subjective A 58 Y/o woman with PMhx of DM , HTN , admitted for AMS Had Geoff today More alert as per mother Na 145, started po liquid will change IVF to 1/2 NS and reduce rate Physical exam general: Alert, NAD , obese Neck; Supple, No elevated JVD hear: RRR, normal S1,2 no murmur or rub Chest: CTAB, no rlaes or wheezes Abdomen: Soft , Nt Extremities No edema or ulcer A/P GEOFF due to dehydration resolved renal dose meds DM as per primary HTN agree to resume losartan will monitor RFT AMS improving neurology on board total time spent 35min Physical Examination - Vital Signs Temperature: 98.2 F Blood Pressure: 167/121 Pulse: 88 Respirations: 22 Pulse Ox (%): 97 - Studies Medications List Reviewed: Yes
[2019-08-26] MEDS: ONDANSETRON 4 MG/2 ML VIAL IV PRN (13:11)
[2019-08-26] MEDS: NACHLORIDE 0.45% 1,000 ML IV SCH (13:19)
[2019-08-26] MEDS: HYDRALAZINE HCL 20 MG/ML VIAL IV PRN (14:07)
[2019-08-26] MEDS ORDERED: CEFTRIAXONE/SWI 1gm 1 GM/10 ML SYR IVP SCH (15:00)
[2019-08-26] MEDS ORDERED: DIAZEPAM 10 MG/2 ML INJ SYRINGE ONE (15:38)
[2019-08-26 15:51] LABS: Arterial Blood Carboxyhemoglob 1.1 % (0-1.5); Blood Gas Oxyhemoglobin 93.5 % (94-97); Blood O2 Saturation 96.2 % (92-98.5)
[2019-08-26] MEDS ORDERED: HALOPERIDOL LACT 5 MG/ML INJ IV ONE (16:00)
[2019-08-26] MEDS: RISPERIDONE 1 MG TABLET PO SCH (17:26)
[2019-08-26] MEDS: OXcarbazepine 150 MG TAB PO SCH (20:30)
[2019-08-27] MEDS: LORazepam 2 MG/ML VIAL IV PRN ×7 (00:21→18:12)
[2019-08-27] MEDS: MORPHINE 2 MG/ML SYR IV PRN ×2 (00:39→04:44)
[2019-08-27] MEDS: WATER FOR INJ,STERILE 10 ML IM PRN ×2 (02:03→23:00)
[2019-08-27] MEDS: ZIPRASIDONE MESYLA 20 MG/VIAL IM SCH ×4 (02:10→23:00)
[2019-08-27] MEDS: NACHLORIDE 0.45% 1,000 ML IV SCH (02:38)
[2019-08-27] MEDS: HALOPERIDOL LACT 5 MG/ML INJ IV PRN (03:04)
[2019-08-27] MEDS: HYDRALAZINE HCL 20 MG/ML VIAL IV PRN (03:47)
[2019-08-27 05:06] LABS: Absolute Lymphocytes (CBC) 2.5 K/uL (0.7-4.9); Basophils % 0.4 % (0-1.3); Hematocrit 37.4 % (36.0-45.0); Lymphocytes % 23.5 % (15.3-44.8); MPV 7.7 fL (7.6-11.3); RBC Red Blood Cell Count 3.96 M/uL (3.86-4.86)
[2019-08-27 06:16] LABS: ALT/SGPT 30 U/L (12-78); AST/SGOT 55 U/L (15-37); Albumin 3.6 g/dL (3.4-5.0); Alkaline Phosphatase 74 U/L (45-117); BUN Blood Urea Nitrogen 8 mg/dL (7-18); Bicarbonate 27 mmol/L (21-32); Bilirubin Total 0.6 mg/dL (0.2-1.0); Glucose Level 110 mg/dL (74-106); Phosphorus 3.2 mg/dL (2.5-4.9); Protein, Total 7.1 g/dL (6.4-8.2); Sodium Level 139 mmol/L (136-145)
[2019-08-27 06:19] LABS: Potassium 2.9 mmol/L (3.5-5.1)
[2019-08-27] MEDS: LEVOTHYROXINE SOD 0.112 MG TAB PO SCH (06:26)
[2019-08-27] MEDS: LEVOTHYROXINE SOD 0.025 MG TAB PO SCH (06:26)
[2019-08-27] MEDS ORDERED: KCL 20 MEQ/100 mL IVPB 20 MEQ/100 ML BAG IV SCH (07:00)
[2019-08-27] MEDS: RISPERIDONE 1 MG TABLET PO SCH ×2 (08:14→19:40)
[2019-08-27] MEDS: PARoxetine HCL 10 MG TAB PO SCH (08:14)
[2019-08-27] MEDS: OXcarbazepine 150 MG TAB PO SCH ×2 (08:14→19:41)
[2019-08-27] MEDS: LOSARTAN POTASSIUM 50 MG TABLET PO SCH (08:15)
[2019-08-27] MEDS: carBAMazepine 200 MG TAB PO SCH (08:15)
[2019-08-27] MEDS ORDERED: haloperidoL 5 MG TAB PO PRN (08:49)
[2019-08-27] MEDS ORDERED: TRAMADOL HCL 50 MG TAB PO PRN (08:52)
[2019-08-27] MEDS ORDERED: HOME MED 1 EA UNK (Levothyroxine Sodium [Levothyroxine Sodium] 137 MCG) PO SCH (09:00)
[2019-08-27] MEDS: LINACLOTIDE 290 MCG PO SCH (09:00)
[2019-08-27] MEDS ORDERED: cloNIDine HCL 0.1 MG TAB PO SCH (09:00)
[2019-08-27] MEDS ORDERED: AMOX/K CLAV 500 MG TAB PO SCH (09:00)
[2019-08-27] MEDS: levETIRAcetam 500 MG in NA CHLORIDE 0.9% 100 ML IV SCH (09:00)
[2019-08-27] MEDS ORDERED: POTASSIUM CL SA 10 MEQ TAB PO ONE (10:00)
[2019-08-27] MEDS: BACLOFEN 10 MG TAB PO SCH ×3 (11:26→19:40)
[2019-08-27] MEDS: ALPRAZOLAM 0.5 MG TABLET PO PRN (11:26)
--- NOTE | 2019-08-27 12:20 | P.PN ---
Subjective Date of Service: 08/27/19 Primary Care Provider: Unknown Chief Complaint: Altered mental status/seizures Subjective: Other (Patient more alert today. Still somewhat agitated. Did not sleep well last night. Required medication for sedation.) Physical Examination - Vital Signs Temperature: 98.7 F Blood Pressure: 174/59 Pulse: 84 Respirations: 16 Pulse Ox (%): 93 - Physical Exam General: Alert, Other (More alert today. Less confuse. Still somewhat ag itated) HEENT: Atraumatic Neck: Supple Respiratory: Clear to auscultation bilaterally, Normal air movement Cardiovascular: Normal pulses, Regular rate/rhythm Neurological: Other (Less agitated today.) - Studies Microbiology Data (last 24 hrs): 08/25/19 10:25 Catheterized Urine [place] Count - Final <10,000 CFU/ML. 08/25/19 10:25 Catheterized Urine - Final Escherichia Coli Medications List Reviewed: Yes Assessment & Plan Discharge Plan: Home Plan to discharge in: 72 Hours Physician Review Additional Text: Impression: Acute encephalopathy metabolic versus toxic complicated with history of seizure disorder, depression with anxiety, UTI- will culture positive for E coli UTI, urine culture positive for E coli, with possible underlying neurogenic bladder Acute renal failure likely related to dehydration versus other Diabetes mellitus type 2 Hypertension Depression with anxiety Plan: Acute encephalopathy metabolic versus toxic complicated with history of seizure disorder, depression with anxiety, and UTI- urine culture positive for E coli: Patient less agitated today. Continue with medication for sedation. Patient without IV line. Will change medications to oral. Still waiting for the patient to be more cooperative to obtain EEG and MRI. Spoke with mother. Mother still adamant that patient likely did not take any illegal medication. Encephalopathy likely related to metabolic versus toxic cause. Urine culture positive for E coli. Will change IV antibiotic therapy to oral Augmentin. Continue home psychiatric medications. Continue to monitor closely. Patient improving. UTI, urine culture positive for E coli, with history of neurogenic bladder: Discontinue Rocephin. Continue Augmentin. Continue monitor closely. Acute renal failure likely related to dehydration versus other: Encourage oral hydration since patient had no longer has IV line. Diabetes mellitus type 2: Will monitor Accu-Cheks. Provide sliding scale. Hold metformin. Hypertension: Continue home medications. Will monitor and adjust appropriately.. Depression with anxiety: Continue home medication Time Spent Managing Pts Care (In Minutes): 55
--- NOTE | 2019-08-27 13:56 | PN ---
Date of Progress Note: 08/27/2019 Patient was admitted with acute kidney injury, altered mental status, questionable of seizure. Patie nt had obstructive uropathy and prerenal. After hydration, kidney function has been improved. Physical Examination: Vital Signs: When I saw the patient, blood pressure 128/66, pulse of 91, afebrile. General: The patient still confused. Chest: Clear to auscultation. Heart: S1, S2. Regular. Abdomen: Soft, nontender. Extremities: No edema. Neuro: Alert. Moving 4 extremities. No focality, but patient confused. Laboratory Data: WBC 10.5, H and H 12.3 and 37.4, platelets 263. Sodium 139, potassium 2.9, bicarb 27, BUN 8, creatinine 0.5, calcium 8.2, phosphorus 3.2. Albumin 3.6. Current Medications: Include clonidine 0.2 b.i.d., losartan 50 b.i.d., metoprolol p.r.n., haloperido l, alprazolam, Keppra, oxcarbazepine, paroxetine, risperidone, Zofran, levothyroxine, bisacodyl. Assessment And Plan: 1.Acute kidney injury, multifactorial, secondary to prerenal, poor perfusion, acute tubular necrosis , superimposed with dehydration, superimposed with angiotensin receptor trell and hydrochlorothiazi de, questionable of obstructive uropathy. Patient on recovery. Kidney function completely resolved, back to normal. Patient was started on losartan and blood pressure been stabilized. I am going to go ahead and discontinue intravenous fluid. We will monitor the patient off intravenous fluid. 2.Hypokalemia. We will supplement. 3.Hypertension. Okay to resume losartan. I am going to go ahead and increase her clonidine to t.i. d. for better blood pressure control and we will make the losartan daily. 4.Seizure as by Primary. 5.Neurogenic bladder. Continue oxybutynin. 6.Urinary tract infection, growing Escherichia coli, sensitive to Augmentin. Agree with Augmentin. I am going to adjust the dose to 875. MA/MODL Voice ID: [id number] Report ID: [id number]
[2019-08-27] MEDS: cloNIDine HCL 0.1 MG TAB PO SCH ×2 (14:00→19:39)
[2019-08-27] MEDS ORDERED: POTASSIUM CL 40 MEQ in NA CHLORIDE 0.9% 500 ML IV SCH (15:00)
--- NOTE | 2019-08-27 19:19 | RAD REPORT ---
EXAM DESCRIPTION: US - CP - 08/27/2019 7:03 pm CLINICAL HISTORY: AMS COMPARISON: No comparisons TECHNIQUE: Real-time sonographic evaluation of bilateral carotid and vertebral systems was performed . Ramirez scale and Doppler interrogation were performed with waveform tracing bilaterally. FINDINGS: Normal high resistance waveforms are noted in both external carotid arteries. The common c arotid arteries and internal carotid arteries show normal low resistance waveforms. No significant plaque formation is seen. Peak systolic and end diastolic velocity values and the ICA/ CCA ratios are in the non-hemodynamically significant range. Antegrade flow seen in both vertebral arteries. Velocity values and ratios were recorded and are retained in the patient's imaging records. Exam was somewhat limited due to the inability of the patient to fully cooperate with the examination . IMPRESSION: No significant atherosclerotic changes noted. No evidence of a hemodynamically significant stenosis.
[2019-08-27] MEDS: AMOX/K CLAV 875 MG TAB PO SCH (19:39)
[2019-08-27] MEDS: TRAZODONE 50 MG TABLET PO SCH (19:40)
[2019-08-28] MEDS: ZIPRASIDONE MESYLA 20 MG/VIAL IM SCH ×4 (02:00→19:35)
[2019-08-28] MEDS: MORPHINE 2 MG/ML SYR IV PRN ×2 (05:44→19:59)
[2019-08-28] MEDS: LEVOTHYROXINE SOD 0.025 MG TAB PO SCH (05:44)
[2019-08-28] MEDS: LEVOTHYROXINE SOD 0.112 MG TAB PO SCH (05:44)
[2019-08-28 05:51] LABS: Albumin 3.6 g/dL (3.4-5.0); BUN Blood Urea Nitrogen 16 mg/dL (7-18); Bicarbonate 25 mmol/L (21-32); Glucose Level 123 mg/dL (74-106); Phosphorus 3.6 mg/dL (2.5-4.9); Potassium 3.6 mmol/L (3.5-5.1); Sodium Level 140 mmol/L (136-145)
[2019-08-28 06:57] LABS: Absolute Lymphocytes (CBC) 1.5 K/uL (0.7-4.9); Basophils % 0.6 % (0-1.3); Hematocrit 36.7 % (36.0-45.0); Lymphocytes % 16.8 % (15.3-44.8); MPV 7.8 fL (7.6-11.3); RBC Red Blood Cell Count 3.87 M/uL (3.86-4.86)
[2019-08-28] MEDS: OXcarbazepine 150 MG TAB PO SCH ×2 (06:57→19:11)
[2019-08-28] MEDS: AMOX/K CLAV 875 MG TAB PO SCH ×2 (06:59→19:12)
[2019-08-28] MEDS: cloNIDine HCL 0.1 MG TAB PO SCH ×3 (07:00→19:12)
[2019-08-28] MEDS: RISPERIDONE 1 MG TABLET PO SCH ×2 (07:00→07:03)
[2019-08-28] MEDS: WATER FOR INJ,STERILE 10 ML IM PRN ×3 (07:01→19:35)
[2019-08-28] MEDS: LOSARTAN POTASSIUM 50 MG TABLET PO SCH (07:01)
[2019-08-28] MEDS: levETIRAcetam 500 MG in NA CHLORIDE 0.9% 100 ML IV SCH (07:02)
[2019-08-28] MEDS: PARoxetine HCL 10 MG TAB PO SCH (07:03)
[2019-08-28] MEDS: LINACLOTIDE 290 MCG PO SCH (07:03)
[2019-08-28] MEDS: BACLOFEN 10 MG TAB PO SCH ×3 (07:04→19:13)
[2019-08-28] MEDS: AMLODIPINE 5 MG TAB PO SCH ×2 (07:55→07:57)
[2019-08-28] MEDS: HYDROCODONE/APAP 7.5/325 MG TAB PO PRN (10:14)
--- NOTE | 2019-08-28 10:39 | P.PN ---
Subjective Date of Service: 08/28/19 Primary Care Provider: Unknown Chief Complaint: Altered mental status/seizures Subjective: Improving (No acute events overnight. Mother, who is a former ICU nurse, endorses that patient is improving. She is less agitated, less combat mallory. Answer questions for the most part. There is a plan for MRI brain and EEG tomorrow.) Physical Examination - Vital Signs Temperature: 98 F Blood Pressure: 118/83 Pulse: 79 Respirations: 13 Pulse Ox (%): 97 - Physical Exam General: Other (slightly drowsy, giving appropriate short answers when engaged. ) HEENT: Atraumatic, Normocephalic, EOMI Neck: Supple Respiratory: Clear to auscultation bilaterally, Normal air movement Cardiovascular: No edema, Regular rate/rhythm, Normal S1 S2 Gastrointestinal: Normal bowel sounds, Soft and benign, Non-distended, Other (obese abdomen) Musculoskeletal: Other (generalized weakness and deconditioned) - Studies Microbiology Data (last 24 hrs): 08/25/19 10:25 Catheterized Urine [place] Count - Final <10,000 CFU/ML. 08/25/19 10:25 Catheterized Urine - Final Escherichia Coli Medications List Reviewed: Yes Assessment & Plan - Problems (Diagnosis) (1) Acute metabolic encephalopathy Current Visit: Yes Status: Acute (2) E-coli UTI Current Visit: Yes Status: Acute (3) Seizure disorder Current Visit: Yes Status: Acute (4) Anxiety Onset Date: 11/21/16 Current Visit: No Status: Chronic (5) Depressed affect Onset Date: 11/21/16 Current Visit: No Status: Chronic (6) Hypertension Onset Date: 11/21/16 Current Visit: No Status: Chronic Qualifiers: Hypertension type: essential hypertension Qualified Code(s): I10 - Essential (primary) hypertension Physician Review Additional Text: Patient is a 58 year old female with a known PMH of Seizure, anxiety and depression currently admitted with altered mental status. This is most likely metabolic encephalopathy. Ucx showed Ecoli. She is pending a MRI Brain and EEG for further work up. Impression: Acute encephalopathy metabolic versus toxic complicated with history of seizure disorder, depression with anxiety, UTI- will culture positive for E coli UTI, urine culture positive for E coli, with possible underlying neurogenic bladder Acute renal failure likely related to dehydration versus other Diabetes mellitus type 2 Hypertension Depression with anxiety Plan: Acute encephalopathy metabolic versus toxic complicated with history of seizure disorder, depression with anxiety, and UTI Less behavior disturbance, less requirement for sedating agents Currently on Augmentin for pansensitive E. coli UTI She is pending MRI Brain and EEG for further work up Will follow up Neurology recommendations Continue home psychiatric medications. Continue to monitor closely. Patient improving. UTI, urine culture positive for E coli, with history of neurogenic bladder: S/P ceftriaxone. Continue Augmentin. Continue monitor closely. Acute renal failure likely related to dehydration versus other: Resolved Encourage oral hydration since patient had no longer has IV line. Diabetes mellitus type 2: Will monitor Accu-Cheks. Provide sliding scale. Hold metformin. Hypertension: Norvasc added to current regimen Will adjust as needed Depression with anxiety: Continue home medication
[2019-08-28] MEDS ORDERED: POTASSIUM CL SA 10 MEQ TAB PO ONE ×3 (10:52→12:00)
--- NOTE | 2019-08-28 11:32 | PN ---
Date of Progress Note: 08/28/2019 Patient was admitted with altered mental status and acute kidney injury secondary to prerenal, superi mposed with hydrochlorothiazide and losartan. After IV hydration, kidney function has been normalize d. Patient still confused. Physical Examination: Vital Signs: Blood pressure 118/83, pulse of 79, afebrile. Patient had good urine output of 600. Chest: Faint rales on the left base. Heart: S1, S2. Regular. Abdomen: Soft, nontender. Extremities: Trace edema. Neuro: Alert, confused. Laboratory Data: WBC 8.9, H and H 12.2 and 36.7, platelets 254. Sodium 140, potassium 3.6, bicarb 2 5, BUN 16, creatinine 0.6, calcium 8.6, phosphorus 3.6. Current Medications: The patient on include losartan 100, clonidine 0.2 t.i.d., amlodipine 5 mg, met oprolol, haloperidol, Keppra, oxcarbazepine, risperidone, levothyroxine, tramadol, KCl. Assessment And Plan: 1.Acute kidney injury secondary to prerenal, normal size kidney, nonnephrotic proteinuria, recovered , resolved, off intravenous hydration. We will continue to monitor. 2.Hypertension, better controlled on current regimen. I am going to discontinue amlodipine to avoid low blood pressure. 3.Hypokalemia. We will supplement. 4.Urinary tract infection secondary to Escherichia coli. Continue Augmentin. 5.Altered mental status. Possible drug withdrawal. We will follow up with Neurology. 6.Seizure as by Neurology. Case discussed with Dr. Chicas, agreed on the plan, discussed with staff, agreed. ZORAN Voice ID: [id number] Report ID: [id number]
[2019-08-28] MEDS: ALPRAZOLAM 0.5 MG TABLET PO PRN (11:33)
[2019-08-28] MEDS: TRAZODONE 50 MG TABLET PO SCH (19:12)
[2019-08-28] MEDS: LORazepam 2 MG/ML VIAL IV PRN (20:35)
[2019-08-29] MEDS: LORazepam 2 MG/ML VIAL IV PRN ×5 (00:25→22:30)
[2019-08-29] MEDS: ZIPRASIDONE MESYLA 20 MG/VIAL IM SCH ×4 (03:15→19:22)
[2019-08-29] MEDS: WATER FOR INJ,STERILE 10 ML IM PRN ×4 (03:26→19:23)
[2019-08-29] MEDS: HYDROCODONE/APAP 7.5/325 MG TAB PO PRN (03:50)
[2019-08-29] MEDS: LEVOTHYROXINE SOD 0.112 MG TAB PO SCH (06:11)
[2019-08-29] MEDS: LEVOTHYROXINE SOD 0.025 MG TAB PO SCH (06:11)
[2019-08-29 07:05] LABS: Albumin 3.5 g/dL (3.4-5.0); BUN Blood Urea Nitrogen 16 mg/dL (7-18); Bicarbonate 24 mmol/L (21-32); Glucose Level 130 mg/dL (74-106); Phosphorus 4.1 mg/dL (2.5-4.9); Sodium Level 139 mmol/L (136-145)
[2019-08-29] MEDS: AMLODIPINE 5 MG TAB PO SCH ×2 (07:37→07:57)
[2019-08-29] MEDS: LINACLOTIDE 290 MCG PO SCH (08:03)
[2019-08-29] MEDS: AMOX/K CLAV 875 MG TAB PO SCH ×2 (08:03→19:18)
[2019-08-29] MEDS: BACLOFEN 10 MG TAB PO SCH ×3 (08:04→19:20)
[2019-08-29] MEDS: RISPERIDONE 1 MG TABLET PO SCH ×2 (08:04→19:19)
[2019-08-29] MEDS: OXcarbazepine 150 MG TAB PO SCH ×2 (08:04→19:17)
[2019-08-29] MEDS: PARoxetine HCL 10 MG TAB PO SCH (08:04)
[2019-08-29] MEDS: cloNIDine HCL 0.1 MG TAB PO SCH ×3 (08:06→19:21)
[2019-08-29] MEDS: LOSARTAN POTASSIUM 50 MG TABLET PO SCH (08:06)
[2019-08-29] MEDS: levETIRAcetam 500 MG in NA CHLORIDE 0.9% 100 ML IV SCH (09:04)
[2019-08-29] MEDS ORDERED: SENOSIDES 8.6 MG TAB PO PRN (10:59)
[2019-08-29] MEDS ORDERED: POLYETHYL GLY 3350 17 GM/DOSE PO PRN (10:59)
--- NOTE | 2019-08-29 12:07 | P.PN ---
Subjective Date of Service: 08/29/19 Primary Care Provider: Unknown Chief Complaint: Altered mental status/seizures Subjective: Improving (Chente is more coherent and responding appropriately to questions. She is cooperating with nursing staff.) Physical Examination - Vital Signs Temperature: 97.5 F Blood Pressure: 149/82 Pulse: 81 Respirations: 16 Pulse Ox (%): 97 - Physical Exam General: In no apparent distress, Obese, Other (Lethargic. Slow to answer questions but responding appropriately) HEENT: Atraumatic, Normocephalic, PERRLA, EOMI Neck: Supple Respiratory: Clear to auscultation bilaterally, Normal air movement Cardiovascular: No edema, Normal pulses, Regular rate/rhythm, Normal S1 S2 Gastrointestinal: Normal bowel sounds, Soft and benign (Slow speech at with appropriate thought content), Non-distended Neurological: Normal affect - Studies Medications List Reviewed: Yes Assessment & Plan - Problems (Diagnosis) (1) Acute metabolic encephalopathy Current Visit: Yes Status: Acute (2) E-coli UTI Current Visit: Yes Status: Acute (3) Seizure disorder Current Visit: Yes Status: Acute (4) Anxiety Onset Date: 11/21/16 Current Visit: No Status: Chronic (5) Depressed affect Onset Date: 11/21/16 Current Visit: No Status: Chronic (6) Hypertension Onset Date: 11/21/16 Current Visit: No Status: Chronic Qualifiers: Hypertension type: essential hypertension Qualified Code(s): I10 - Essential (primary) hypertension Physician Review Additional Text: Impression: Patient is a 58 year old female with a known PMH of Seizure, anxiety and depression currently admitted with altered mental status. This is most likely metabolic encephalopathy. Ucx showed Ecoli. She is pending a MRI Brain and EEG for further work up. Acute encephalopathy metabolic versus toxic complicated with history of seizure disorder, depression with anxiety, UTI- will culture positive for E coli UTI, urine culture positive for E coli, with possible underlying neurogenic bladder Acute renal failure likely related to dehydration versus other Diabetes mellitus type 2 Hypertension Depression with anxiety Plan: Acute encephalopathy metabolic versus toxic complicated with history of seizure disorder, depression with anxiety, and UTI Continues to improve as evidenced by appropriate behavior disturbance. She is cooperating with nursing staff Currently on Augmentin for pansensitive E. coli UTI Follow up MRI Brain and EEG today Will follow up Neurology recommendations Continue home psychiatric medications. Continue to monitor closely. Patient improving. UTI, urine culture positive for E coli, with history of neurogenic bladder: S/P ceftriaxone. Continue Augmentin. Continue monitor closely. Acute renal failure likely related to dehydration versus other: Resolved Encourage oral hydration since patient had no longer has IV line. Diabetes mellitus type 2: Will monitor Accu-Checks. Provide sliding scale. Hold metformin. Hypertension: BP is controlled Will adjust as needed Depression with anxiety: Continue home medication
[2019-08-29] MEDS ORDERED: LORazepam 2 MG/ML VIAL IV ONE (12:11)
[2019-08-29 14:59] LABS: C.diff Antigen/Toxin Ag neg : Tox neg (NEG : NEG)
--- NOTE | 2019-08-29 18:51 | RAD REPORT ---
EXAM DESCRIPTION: MRI - Brain Wo Cont - 08/29/2019 6:10 pm CLINICAL HISTORY: ams Headache, drowsiness COMPARISON: Ct Stroke Brain Wo Cont dated 08/24/2019 TECHNIQUE: Multi-sequence, multiplanar MR imaging of the brain was performed without contrast. FINDINGS: A very limited significantly motion degraded study is submitted. Grossly no bleed, hydrocephalus or midline shift is seen. No evidence of large territorial infarction . IMPRESSION: A very limited motion degraded study is submitted without gross acute abnormality.
[2019-08-29] MEDS: TRAZODONE 50 MG TABLET PO SCH (19:18)
[2019-08-29] MEDS: ALPRAZOLAM 0.5 MG TABLET PO PRN (19:22)
[2019-08-29] MEDS: ONDANSETRON 4 MG/2 ML VIAL IV PRN (19:59)
[2019-08-29] MEDS: MORPHINE 2 MG/ML SYR IV PRN ×2 (19:59→23:44)
[2019-08-30] MEDS: ZIPRASIDONE MESYLA 20 MG/VIAL IM SCH ×4 (02:11→21:06)
[2019-08-30] MEDS: WATER FOR INJ,STERILE 10 ML IM PRN ×2 (02:12→21:07)
[2019-08-30] MEDS: MORPHINE 2 MG/ML SYR IV PRN (05:29)
[2019-08-30] MEDS: ONDANSETRON 4 MG/2 ML VIAL IV PRN (05:29)
[2019-08-30] MEDS: LEVOTHYROXINE SOD 0.112 MG TAB PO SCH (05:30)
[2019-08-30] MEDS: LEVOTHYROXINE SOD 0.025 MG TAB PO SCH (05:31)
[2019-08-30 05:35] LABS: Albumin 3.3 g/dL (3.4-5.0); BUN Blood Urea Nitrogen 17 mg/dL (7-18); Bicarbonate 28 mmol/L (21-32); Glucose Level 108 mg/dL (74-106); Phosphorus 4.2 mg/dL (2.5-4.9); Potassium 3.5 mmol/L (3.5-5.1); Sodium Level 139 mmol/L (136-145)
[2019-08-30 08:08] LABS: HIV AG/AB 4TH GEN Non-reactive (Non-reactive)
[2019-08-30] MEDS: cloNIDine HCL 0.1 MG TAB PO SCH ×3 (08:33→21:08)
[2019-08-30] MEDS: AMLODIPINE 5 MG TAB PO SCH (08:34)
[2019-08-30] MEDS: RISPERIDONE 1 MG TABLET PO SCH ×2 (08:34→21:08)
[2019-08-30] MEDS: LOSARTAN POTASSIUM 50 MG TABLET PO SCH (08:34)
[2019-08-30] MEDS: PARoxetine HCL 10 MG TAB PO SCH (08:35)
[2019-08-30] MEDS: AMOX/K CLAV 875 MG TAB PO SCH ×2 (08:35→21:09)
[2019-08-30] MEDS: BACLOFEN 10 MG TAB PO SCH ×3 (08:36→21:10)
[2019-08-30] MEDS: LINACLOTIDE 290 MCG PO SCH (08:36)
[2019-08-30] MEDS: OXcarbazepine 150 MG TAB PO SCH ×2 (08:37→21:09)
[2019-08-30] MEDS: levETIRAcetam 500 MG in NA CHLORIDE 0.9% 100 ML IV SCH (08:37)
[2019-08-30] MEDS ORDERED: POTASSIUM CL SA 10 MEQ TAB PO ONE (10:03)
[2019-08-30 10:20] LABS: Magnesium 1.9 mg/dL (1.8-2.4)
--- NOTE | 2019-08-30 11:29 | P.PN ---
Subjective Date of Service: 08/30/19 Primary Care Provider: Unknown Chief Complaint: Altered mental status/seizures Subjective: Improving (Patient has occasional confusion but appears much improved. Her mental status is near baseline. Mother at bedside acknowledges progress. Medications reconciled, morphine removed from MAY.) Physical Examination - Vital Signs Temperature: 97.6 F Blood Pressure: 153/93 Pulse: 68 Respirations: 16 Pulse Ox (%): 94 - Physical Exam General: Alert, In no apparent distress, Cooperative, Other (more alert, interactive and energetic) HEENT: Atraumatic, Normocephalic, PERRLA, EOMI Neck: Supple Respiratory: Clear to auscultation bilaterally, Normal air movement Cardiovascular: No edema, Normal pulses, Regular rate/rhythm, Normal S1 S2 Gastrointestinal: Normal bowel sounds, Soft and benign, Non-distended, No ascites, No tenderness Musculoskeletal: No clubbing, No swelling, No contractures, No erythema, No tenderness, No warmth Neurological: Other (improved affect, slowly speech) - Studies Medications List Reviewed: Yes Assessment & Plan - Problems (Diagnosis) (1) Acute metabolic encephalopathy Current Visit: Yes Status: Acute (2) E-coli UTI Current Visit: Yes Status: Acute (3) Seizure disorder Current Visit: Yes Status: Acute (4) Anxiety Onset Date: 11/21/16 Current Visit: No Status: Chronic (5) Depressed affect Onset Date: 11/21/16 Current Visit: No Status: Chronic (6) Hypertension Onset Date: 11/21/16 Current Visit: No Status: Chronic Qualifiers: Hypertension type: essential hypertension Qualified Code(s): I10 - Essential (primary) hypertension Physician Review Additional Text: Impression: Patient is a 58 year old female with a known PMH of Seizure, anxiety and depression currently admitted with altered mental status. This is most likely metabolic encephalopathy. Ucx showed Ecoli. She has done well on Augmentin. Patient had an MRI of the brain. The study was sub optimal as she could not remain still. However, there was no grossly abnormal findings including intracranial bleeding, large infarct or hydrocephalus. Have consulted Psychiatry for final medication reconciliation since she is still having occasional confusion. Discussed case with psychiatry on 08/30/2019. Acute encephalopathy metabolic versus toxic complicated with history of seizure disorder, depression with anxiety, UTI- will culture positive for E coli UTI, urine culture positive for E coli, with possible underlying neurogenic bladder Acute renal failure likely related to dehydration versus other Diabetes mellitus type 2 Hypertension Depression with anxiety Plan: Acute encephalopathy metabolic versus toxic complicated with history of seizure disorder, depression with anxiety, and UTI Continues to improve on a daily basis. Progress also noted by mother. Has completed a course of Augmentin due to E coli UTI Medication reconciled. Psychiatry recommends discontinuing benzodiazepines Patient has been safely resumed on her seizure medications Will follow up Psychiatry recommendation PT/OT pending I anticipating discharge tomorrow to go live with mother. UTI, urine culture positive for E coli, with history of neurogenic bladder: Completed course of antibiotics Acute renal failure likely related to dehydration versus other: Resolved Encourage oral hydration since patient had no longer has IV line. Diabetes mellitus type 2: Will monitor Accu-Checks. Provide sliding scale. Hold metformin. Hypertension: BP is controlled Will adjust as needed Depression with anxiety: Would defer modifications and adjustments to Psychiatry Patient is currently on ziprasidone, Risperidone and Trazodone
--- NOTE | 2019-08-30 12:38 | PN ---
Date of Progress Note: 08/30/2019 Subjective: Patient was admitted with acute kidney injury, altered mental status, questionable postictal/withdrawal from psych med. Had acute kidney injury, was confined with hypokalemia. Patient has been on replacement. Her kidney function has been improved. Physical Examination: Vital Signs: When I saw the patient, blood pressure 153/93, pulse of 68, afebrile. Chest: Clear to auscultation. Heart: S1, S2. Regular. Abdomen: Soft, nontender. Extremities: Trace edema. Neurologic: Alert. Slight confused, but better. No focality. Laboratory Data: WBC 8.9, H and H 12.2/36.7, platelets 254. Sodium 139, potassium 3.5, bicarb 28, BUN 17, creatinine 0.4, GFR of above 90, calcium 8.2, phosphorus 4.2, albumin 3.3. Current Medications: The patient on include clonidine 0.2 t.i.d., amlodipine 5 mg, losartan 100, Tylenol, Keppra, lorazepam, oxcarbazepine, risperidone, levothyroxine. Assessment And Plan: 1. Acute kidney injury, normal-sized kidney, proteinuric, nonnephrotic, secondary to prerenal superimposed with ARB and hydrochlorothiazide, recovered, resolved, off intravenous fluid. We will continue to monitor. 2. Hypertension, controlled, not optimal. I am going to go ahead and increase her amlodipine to 10 mg and we will follow up. The patient continue losartan for the time being. 3. Hypokalemia. We will supplement. We will add magnesium to her lab to see if we need for magnesium supplement and we will follow up. 4. Altered mental status as by primary. 5. Urinary tract infection secondary to Escherichia coli. Continue current antibiotics. KEITH/TRAVIS Voice ID: [id number] Report ID: [id number] ROSANGELA
--- NOTE | 2019-08-30 19:59 | PN ---
Date of Progress Note: 08/29/2019 Nephrology Followup Note Chief Complaint: Acute kidney injury. History Of Present Illness: Patient remains in ICU. She has some confusion and agitation. She has questionable postictal withdrawal condition from psychotic medication. She developed acute kidney injury, was found to have hypokalemia. Patient received replacement. Potassium level is within normal limits. Review of Systems: Cannot be obtained due to patient's condition. Physical Examination: Lungs: Clear to auscultation bilaterally. Heart: S1, S2. Abdomen: Soft, benign. Extremities: Minimal edema. Laboratory Data: Sodium 139, potassium 4.0, chloride 107, CO2 24, BUN 16, creatinine 0.52, glucose 140, calcium 8.8 and phosphorus 4.1. Impression And Plan: Acute kidney injury. Patient is improving with renal function. Electrolytes are stable. Monitor electrolytes and adjust potassium replacement. Monitor magnesium replacement. There is no evidence of renal tubular acidosis. Hypokalemia was supplemented and remains stable. Altered mental status. Workup pending by primary team. Urinary tract infection, continue antibiotics. I spent total 36 min including 25 min to coordinate care plan. EB/MODL Voice ID: [id number] Report ID: [id number] ROSANGELA
[2019-08-30] MEDS: TRAZODONE 50 MG TABLET PO SCH (21:08)
[2019-08-31] MEDS: ZIPRASIDONE MESYLA 20 MG/VIAL IM SCH ×2 (02:00→08:00)
[2019-08-31] MEDS: LEVOTHYROXINE SOD 0.112 MG TAB PO SCH (05:45)
[2019-08-31] MEDS: LEVOTHYROXINE SOD 0.025 MG TAB PO SCH (05:45)
[2019-08-31] MEDS: cloNIDine HCL 0.1 MG TAB PO SCH (08:09)
[2019-08-31] MEDS: BACLOFEN 10 MG TAB PO SCH (08:15)
[2019-08-31] MEDS: PARoxetine HCL 10 MG TAB PO SCH (08:15)
[2019-08-31] MEDS: RISPERIDONE 1 MG TABLET PO SCH (08:15)
[2019-08-31] MEDS: LOSARTAN POTASSIUM 50 MG TABLET PO SCH (08:15)
[2019-08-31] MEDS: OXcarbazepine 150 MG TAB PO SCH (08:16)
[2019-08-31] MEDS: AMOX/K CLAV 875 MG TAB PO SCH (08:16)
[2019-08-31] MEDS: LINACLOTIDE 290 MCG PO SCH (08:17)
[2019-08-31 08:18] VITALS: BP 138/75
[2019-08-31 08:19] VITALS: TEMP 98.3
[2019-08-31 08:33] VITALS: O2SAT 93
[2019-08-31] MEDS ORDERED: AMLODIPINE 10 MG TAB PO SCH (09:00)
[2019-08-31] MEDS: levETIRAcetam 500 MG in NA CHLORIDE 0.9% 100 ML IV SCH (09:48)
--- NOTE | 2019-08-31 10:29 | P.DS ---
Admission Date: 08/25/19 Discharge Date: 08/31/19 Primary Care Provider: Unknown Disposition: ROUTINE DISCHARGE Discharge Condition: GOOD Reason for Admission: Altered mental status/seizures - Problems (1) Acute metabolic encephalopathy Current Visit: Yes Status: Acute (2) E-coli UTI Current Visit: Yes Status: Acute (3) Seizure disorder Current Visit: Yes Status: Acute (4) Anxiety Onset Date: 11/21/16 Current Visit: No Status: Chronic (5) Depressed affect Onset Date: 11/21/16 Current Visit: No Status: Chronic (6) Hypertension Onset Date: 11/21/16 Current Visit: No Status: Chronic Qualifiers: Hypertension type: essential hypertension Qualified Code(s): I10 - Essenti al (primary) hypertension Brief History of Present Illness: Please refer to H&P Hospital Course: Patient is a 58 year old female with a past medical history of chronic alcohol abuse, anxiety, depression an bipolar disorder. She was admitted with acute encephalopathy. She underwent an extensive workup and was found to have E coli UTI. She responded to ceftriaxone and eventually Augmentin. Her mental status progressively improved. Mother, who is also a former ICU nurse, states that whenever she gets UTI she becomes encephalopathic. At this point patient is medically cleared. Psychiatry also cleared the patient for discharge. Vital Signs/Physical Exam: Temp Pulse Resp BP Pulse Ox 98.3 F 88 15 138/75 93 08/31/19 08:00 08/31/19 08:09 08/30/19 22:08 08/31/19 08:09 08/31/19 08:00 General: Alert, In no apparent distress, Cooperative HEENT: Atraumatic, Normocephalic, EOMI Neck: Supple Respiratory: Clear to auscultation bilaterally, Normal air movement Cardiovascular: No edema, Normal pulses, Regular rate/rhythm, Normal S1 S2 Gastrointestinal: Normal bowel sounds, Hypoactive, Soft and benign, Non- distended Musculoskeletal: No clubbing, No swelling, No contractures, No erythema, No tenderness, No warmth Integumentary: No rashes, No breakdown, No significant lesion, No tenderness/swelling, No erythema, No warmth, No cyanosis Neurological: Normal speech, Sensation intact, Normal affect Laboratory Data at Discharge: WBC 8.9 K/uL (4.3-10.9) D 06/21/20 06:38 Hgb 12.2 g/dL (12.0-15.0) 08/28/19 06:38 Hct 36.7 % (36.0-45.0) 08/28/19 06:38 Plt Count 254 K/uL (152-406) 08/28/19 06:38 PT 11.5 SECONDS (9.5-12.5) 08/25/19 00:15 INR 0.97 08/25/19 00:15 APTT 26.9 SECONDS (24.3-36.9) 08/25/19 00:15 Sodium 139 mmol/L (136-145) 08/30/19 04:47 Potassium 3.5 mmol/L (3.5-5.1) 08/30/19 04:47 BUN 17 mg/dL (7-18) 08/30/19 04:47 Creatinine 0.46 mg/dL (0.55-1.3) L 08/30/19 04:47 Glucose 108 mg/dL (74-106) H 08/30/19 04:47 Uric Acid 7.4 mg/dL (2.6-6.0) H 08/25/19 11:14 Phosphorus 4.2 mg/dL (2.5-4.9) 08/30/19 04:47 Magnesium 1.9 mg/dL (1.8-2.4) 08/30/19 04:47 Total Bilirubin 0.6 mg/dL (0.2-1.0) 08/27/19 04:53 AST 55 U/L (15-37) H 08/27/19 04:53 ALT 30 U/L (12-78) 08/27/19 04:53 Alkaline Phosphatase 74 U/L (45-117) 08/27/19 04:53 Troponin I < 0.02 ng/mL (0.0-0.045) 08/25/19 11:14 Lipase 53 U/L (73-393) L 08/25/19 11:14 Home Medications: Clonidine HCl [Catapres*] 0.2 mg PO BID 07/05/18 Levothyroxine Sodium 137 mcg PO DAILY 07/05/18 Linaclotide [Linzess] 290 mcg PO DAILY 07/05/18 Losartan/Hydrochlorothiazide [Losartan-Hctz 100-25 mg Tab] 1 tab PO DAILY 07/05/18 Metformin ER [Glucophage ER*] 500 mg PO DAILY 07/05/18 OXcarbazepine [Oxcarbazepine] 2 tab PO BEDTIME 07/05/18 OXcarbazepine [Oxcarbazepine] 600 mg PO DAILY 07/05/18 Omeprazole [Prilosec] 40 mg PO DAILY 07/05/18 Ondansetron [Zofran (Odt)*] 8 mg PO TID PRN 07/05/18 Oxybutynin Chloride [Ditropan*] 5 mg PO DAILY 07/05/18 PARoxetine HCl [Paroxetine HCl] 40 mg PO DAILY 07/05/18 Trazodone HCl 100 mg PO BEDTIME 07/05/18 risperiDONE [Risperdal 1 mg tab*] 1 mg PO BID 07/05/18 Baclofen [Lioresal*] 10 mg PO TID 08/25/19 Dicyclomine HCl 20 mg PO TID 08/25/19 Tramadol HCl [Ultram] 50 mg PO Q6H PRN 08/25/19 Senosides [Senokot*] 8.6 mg PO DAILY PRN tab 08/31/19 Diet: Regular
--- NOTE | 2019-08-31 12:57 | PN ---
Date of Progress Note: 08/31/2019 Subjective: Patient was admitted with altered mental status with UTI, acute hematuria secondary to prerenal, ARB and hydrochlorothiazide. Patient recovered. Physical Examination: Vital Signs: Blood pressure 138/75, pulse of 88. Patient had good urine output of 1000. Chest: Clear to auscultation. Heart: S1, S2. Regular. Abdomen: Soft, nontender. Extremities: Trace edema. Neuro: Alert. No focality. Laboratory Data: Sodium 139, potassium 3.5, bicarb 28, BUN 17, creatinine 0.4, calcium 8.2, phosphorus 4.2, magnesium 1.9. Current Medications: The patient on include Augmentin, diclofenac, losartan 100, amlodipine 10 mg, clonidine 0.2 t.i.d., Keppra, oxcarbazepine, risperidone, trazodone, Ambien, levothyroxine, tramadol. Assessment And Plan: Acute kidney injury, normal-sized kidney, proteinuria, nonnephrotic, secondary to prerenal superimposed with hydrochlorothiazide and ARB, recovered. 1. Acute kidney injury, normal-sized kidney, proteinuric, nonnephrotic, secondary to prerenal superimposed with ARB and hydrochlorothiazide, recovered, resolved, off intravenous fluid. We will continue to monitor. 2. Hypertension, controlled, not optimal. I am going to go ahead and increaseher amlodipine to 10 mg and we will follow up. The patient continue losartan for the time being. 3. Hypokalemia. We will supplement. We will add magnesium to her lab to see if we need for magnesium supplement and we will follow up. 4. Altered mental status as by primary. 5. Urinary tract infection secondary to Escherichia coli. Continue current antibiotics. ZORAN Voice ID: [id number] Report ID: [id number] ROSANGELA
[2019-08-31 13:16] LABS: HBsAG Nonreactive (Nonreactive)
[2019-09-02 16:32] LABS: Hepatitis C Virus RNA (PCR)log <1.18 log IU/mL
--- NOTE | 2019-09-05 12:28 | CON ---
Date of Consultation: 08/31/2019 Chief Complaint: Psychiatry has been consulted for medication reconciliation. History Of Present Illness: Ms. Jaimie Amanda is a 58-year-old female admitted via the ER on account of altered mental status secondary to urinary tract infection. Urine culture grew E coli. Patient was admitted to ICU, where she is receiving antibiotics. On interview, patient admits a hist ory of psychiatric illness, was unable to provide history regarding medication management and her las t visit to psychiatrist. However, patient is on Trileptal 600 mg tablets daily. She is on oxcarbaze pine 2 tablets at bedtime and she is also on risperidone 1 mg twice daily, which was initiated on thi s admission. Patient is currently taking Ativan t.i.d. p.r.n. and is also on Geodon p.r.n. for agita tion. On interview, patient expressed desire of wanting to go home. Denies depressive symptoms. De nies elevated mood or irritable mood. No hyperverbal speech. No decreased need for sleep. Patient is not suicidal. No assertive behavior. There is no history of fluctuation in patient's condition a nd level of consciousness. Patient's memory is optimal, however, patient's baseline cognitive functi oning is provider. Per caregiver, patient's orientation is improving since admission and is more alert and aware of her surroundings. Of note, there has been no history of aggressive behavi or, no psychotic symptoms reported. Physical Examination: Vital Signs: Blood pressure is 138/75, pulse rate is 88, temp 98.3 degrees Fahrenheit, respirations 15, pulse oxymetry is 93 on room air. Mental Status Examination: Patient is a well-nourished, well-dressed female, not lying in bed in ICU. Alert and oriented to person and place but not to time. She is not in any obvious acute distress. No stereotypic movement observed. Speech is soft with normal rate, rhythm and volume. N o perseveration noted. Memory and concentration are suboptimal. She is currently providing her psyc hiatric history. Mood, she says is euthymic. Affect is restricted. Thought process is linear and c ircumstantial but not tangential. Thought content: No suicidal or homicidal ideation. No ruminatio n or obsession. No auditory or visual hallucinations. Patient is internally preoccupied. Insight, judgment, impulse control are limited. Language skills fair. Diagnoses: 1.Delirium secondary to urinary tract infection. 2.Bipolar disorder, nonspecified. Recommendations: We recommend risperidone decreased to 0.5 mg p.o. b.i.d. . We recommend to continue with Trileptal at current dose. We will discontinue Ativan as benzodiazepine to prolonged delirium, so we discontinue Geodon. Recommend the patient to follow up with her psychia trist post discharge. Thank you for the consult. I spent 45 minutes reviewing patient's chart, interviewing patient, as we ll as discussing with treatment team. VESNA Voice ID: [id number] Report ID: [id number]
== END 2019-08-31 11:10 | disposition home or self-care (01) | DRG 689 ==
LOC: ER 23:59 → ERHOLD 08-25 03:37 → 3RD-ICU 08-25 06:54 → OBSVTOIN 08-25 10:49
PROVIDERS: ADMIT Internal Medicine; ATTEND Internal Medicine
DX: N39.0 Urinary tract infection, site not specified (principal); G93.41 Metabolic encephalopathy; E87.2 Acidosis; E87.3 Alkalosis; E87.1 Hypo-osmolality and hyponatremia; N17.9 Acute kidney failure, unspecified; Z79.84 Long term (current) use of oral hypoglycemic drugs; Z79.890 Hormone replacement therapy; Z79.899 Other long term (current) drug therapy; I10 Essential (primary) hypertension; E03.9 Hypothyroidism, unspecified; F17.200 Nicotine dependence, unspecified, uncomplicated; E11.9 Type 2 diabetes mellitus without complications; F41.8 Other specified anxiety disorders; E86.0 Dehydration; N13.9 Obstructive and reflux uropathy, unspecified; Z88.8 Allergy status to other drugs, medicaments and biological substances; E87.6 Hypokalemia; N31.9 Neuromuscular dysfunction of bladder, unspecified; B96.20 Unspecified Escherichia coli [E. coli] as the cause of diseases classified elsewhere; F31.9 Bipolar disorder, unspecified; R31.9 Hematuria, unspecified; E66.9 Obesity, unspecified; Z68.26 Body mass index [BMI] 26.0-26.9, adult
CPT/HCPCS: 36415; 51702; 70450; 70551; 71045; 74018; 76770; 80048; 80053; 80069; 80156; 80307; 80320; 81003; 82140; 82550; 82553; 82570; 82607; 82746; 82805; 82947; 83520; 83605; 83690; 83735; 83970; 84100; 84145; 84156; 84439; 84443; 84484; 84550; 85025; 85610; 85730; 86021; 86038; 86160; 86225; 86317; 86430; 86664; 86665; 86704; 86706; 87040; 87077; 87086; 87088; 87186; 87324; 87340; 87389; 87449; 87522; 93005; 93880; 96361; 96365; 96375; 99291; 99292; G0378; J0360; J0696; J1170; J1630; J1953; J2270; J2405; J3360; J3486; J7030; J7040; U0002

== ENCOUNTER 2019-09-01 05:45 | Emergency (ER) | payer OTHER ==
--- OUTSIDE RECORDS SUMMARY | 2019-09-01 05:47 | XMS REPORT | Continuity of Care Document ---
:1960 Author Organization [facility] t Address [address] [place] [address] [address]. [address]. [address] [place] [address] Care Team Providers Name Role Phone Natacha [...] Facility Department ID 2018-10-21 2018-10-21 Telephone Nazanin NMAIDA [id number] 00:00:00 00:00:00 Natacha Nguyen [id number] [place] [id number] [place] [phone] [facility] Results This patient has no known results.
--- NOTE | 2019-09-01 06:23 | ER ---
Nurse's Notes [facility] Name: Jaimie Amanda Age: 58 yrs Sex: Female : 1960 Arrival Date: 09/01/2019 Time: 05:47 Bed Waiting Private MD: Diagnosis: Presentation: 08/31 05:52 Chief complaint: Patient's mother states discharge from ICU yesterday, has been having lp1 burning with urination, diarrhea, and vomiting;. Coronavirus screen: Patient denies a cough. Patient denies shortness of breath or difficulty breathing. Patient denies measured and/or subjective temperature greater than 100.4F prior to today's visit. Patient denies travel on a cruise ship or to a country the [facility] currently lists as an affected area. Patient denies contact with known and/or suspected case of COVID-19. Ebola Screen: No symptoms or risks identified at this time. Risk Assessment: Do you want to hurt yourself or someone else? Patient reports no desire to harm self or others. Onset of symptoms was August 31, 2019. 05:52 Method Of Arrival: Ambulatory lp1 05:52 Acuity: ZHEN 3 lp1 05:57 Initial Sepsis Screen: Does the patient meet any 2 criteria? No. Patient's initial lp1 sepsis screen is negative. Does the patient have a suspected source of infection? No. Patient's initial sepsis screen is negative. Triage Assessment: 06:21 General: Notified by registration staff that patient states she will wait to be seen lp1 and see her primary care doctor . - Immunization history:: Adult Immunizations up to date. - Social history:: Smoking status: Patient reports the use of cigarette tobacco products, smokes one pack cigarettes per day. Screenin:59 Abuse screen: Denies threats or abuse. Denies injuries from another. Nutritional lp1 screening: No deficits noted. Tuberculosis screening: No symptoms or risk factors identified. Vital Signs: 05:57 BP 120 / 73; Pulse 83; Resp 18; Temp 98.1(O); Pulse Ox 97% on R/A; Weight 70.31 kg (R); lp1 Height 5 ft. 7 in. (170.18 cm); Pain 0/10; 05:57 Body Mass Index 24.28 (70.31 kg, 170.18 cm) lp1 ED Course: 05:47 Patient arrived in ED. cl3 05:57 Triage completed. lp1 05:57 Arm band placed on right wrist. lp1 Administered Medications: No medications were administered Outcome: 06:22 Patient left the ED. lp1 Signatures: Joanie Young RN RN lp1 Ty Otero cl3
[2019-09-01 06:28] VITALS: BP 120/73; TEMP 98.1; O2SAT 97
== END 2019-09-01 06:22 | disposition left against medical advice (07) ==
LOC: ER 05:45
DX: Z53.21 Procedure and treatment not carried out due to patient leaving prior to being seen by health care provider (principal)
CPT/HCPCS: 99281

== ENCOUNTER 2020-02-18 09:56 | Emergency (ER) | payer OTHER, SELFPAY ==
--- OUTSIDE RECORDS SUMMARY | 2020-02-18 09:58 | XMS REPORT | Continuity of Care Document ---
:1960 Author Organization [facility] t Address [address] [place] [address] Care Team Providers Name Role Phone Natacha [...] Clinicians Facility Department ID 2018-10-21 2018-10-21 Telephone TURNER Back [id number] 00:00:00 00:00:00 Natacha Nguyen [id number] Ade [id number] [phone] [facility] 204 [facility] Results This patient has no known results.
[2020-02-18] MEDS ORDERED: NA CHLORIDE 0.9% 500 ML ONE (10:58)
[2020-02-18] MEDS ORDERED: ONDANSETRON 4 MG/2 ML VIAL ONE (10:58)
[2020-02-18 11:27] LABS: Absolute Lymphocytes (CBC) 3.3 K/uL (0.7-4.9); Basophils % 0.5 % (0-1.3); Hematocrit 39.5 % (36.0-45.0); Lymphocytes % 36.4 % (15.3-44.8); MPV 7.7 fL (7.6-11.3); RBC Red Blood Cell Count 4.31 M/uL (3.86-4.86)
[2020-02-18 11:28] LABS: Protime INR 0.91
[2020-02-18 11:40] LABS: Urine Blood NEGATIVE (NEG); Urine Glucose NEGATIVE (NEG); Urine Protein NEGATIVE (NEG); Urine Specific Gravity >1.030 (1.005-1.030); Urine pH 5.5 (5.0-7.0)
[2020-02-18 11:40] LABS: ALT/SGPT 29 U/L (12-78); AST/SGOT 21 U/L (15-37); Albumin 3.9 g/dL (3.4-5.0); Alkaline Phosphatase 119 U/L (45-117); BUN Blood Urea Nitrogen 15 mg/dL (7-18); Bicarbonate 30 mmol/L (21-32); Bilirubin Direct < 0.1 mg/dL (0-0.2); Bilirubin Total 0.1 mg/dL (0.2-1.0); Glucose Level 120 mg/dL (74-106); Lipase 131 U/L (73-393); Potassium 3.7 mmol/L (3.5-5.1); Protein, Total 7.6 g/dL (6.4-8.2); Sodium Level 141 mmol/L (136-145)
[2020-02-18 11:43] LABS: Urine Bacteria NONE SEEN /HPF (<20); Urine RBC NONE SEEN /HPF (NONE SEEN)
[2020-02-18 11:58] LABS: Barbiturates NEGATIVE (NEGATIVE); Benzodiazepines NEGATIVE (NEGATIVE); Cocaine NEGATIVE (NEGATIVE); METHAMPHETAM NEGATIVE (NEGATIVE); Methadone NEGATIVE (NEGATIVE); Opiates NEGATIVE (NEGATIVE); Phencyclidine NEGATIVE (NEGATIVE); THC Cannibis NEGATIVE (NEGATIVE)
[2020-02-18] MEDS ORDERED: ACETAMINOPHEN 500 MG TAB ONE (12:33)
--- NOTE | 2020-02-18 12:42 | RAD REPORT ---
EXAM DESCRIPTION: CT - Head Brain Wo Cont - 02/18/2020 12:23 pm CLINICAL HISTORY: Headache COMPARISON: August 2019 TECHNIQUE: Computed axial tomography of the head was obtained. IV contrast was not requested. All CT scans are performed using dose optimization technique as appropriate and may include automated exposure control or mA/KV adjustment according to patient size. FINDINGS: An intracranial bleed is not seen . The ventricles are normal in caliber. No extra-axial fluid collection is noted. Fluid within the sinuses/ mastoids is not seen. IMPRESSION: No acute intracranial abnormality is seen. If patient's symptoms persist MRI of the bra in would be recommended.
--- NOTE | 2020-02-18 12:52 | RAD REPORT ---
EXAM DESCRIPTION: CT - Abdomen Pelvis W Contrast - 02/18/2020 12:30 pm CLINICAL HISTORY: Abdominal pain COMPARISON: March 2019 TECHNIQUE: Computed axial tomography of the abdomen pelvis was obtained. 100 cc Isovue-300 was admin istered intravenously. Oral contrast was not requested which limits evaluation of bowel. All CT scans are performed using dose optimization technique as appropriate and may include automated exposure control or mA/KV adjustment according to patient size. FINDINGS: The liver, spleen, pancreas, adrenal and kidneys appear unremarkable. There is no evidence of diverticulitis. Normal appendix. Small hiatal hernia IMPRESSION: No acute abnormality is displayed.
--- NOTE | 2020-02-18 13:28 | ER ---
Nurse's Notes [facility] Name: Jaimie Amanda Age: 59 yrs Sex: Female : 1960 Arrival Date: 02/18/2020 Time: 09:57 Bed 13 Private MD: Diagnosis: Headache;Unspecified abdominal pain;Hypertensive heart disease Presentation: 02/17 10:08 Chief complaint: Patient states: RLQ pain and left low back pain that began last night aa5 with nausea and vomiting. Pt denies diarrhea. Pt also c/o high blood pressure and headache. Pt also reports abdominal distension since last night. 10:08 Onset of symptoms was February 2020. aa5 10:08 Acuity: ZHEN 3 aa5 10:08 Method Of Arrival: Ambulatory aa5 10:08 Coronavirus screen: vomiting. Ebola Screen: Patient negative for fever greater than or aa5 equal to 101.5 degrees Fahrenheit, and additional compatible Ebola Virus Disease symptoms. Initial Sepsis Screen: Does the patient meet any 2 criteria? No. Patient's initial sepsis screen is negative. Does the patient have a suspected source of infection? No. Patient's initial sepsis screen is negative. Risk Assessment: Do you want to hurt yourself or someone else? Patient reports no desire to harm self or others. Historical: - Allergies: 10:10 Nitroglycerin; aa5 - Home Meds: 10:10 clonidine HCl 0.2 mg oral tab [Active]; aa5 - PMHx: 10:10 Anxiety; Depression; Diabetes - NIDDM; etoh abuse; Hypertension; Hypothyroidism; aa5 Seizures; - Immunization history:: Adult Immunizations up to date. - Social history:: Smoking status: Patient reports the use of cigarette tobacco products, smokes one pack cigarettes per day. Screenin:30 Abuse screen: Denies threats or abuse. Denies injuries from another. Nutritional ca1 screening: No deficits noted. Tuberculosis screening: No symptoms or risk factors identified. Fall Risk IV access (20 points). Assessment: 10:30 General: Appears in no apparent distress. uncomfortable, Behavior is cooperative, ca1 appropriate for age, anxious. Pain: Complains of pain in posterior aspect of left lateral abdomen and right lower quadrant Pain currently is 8 out of 10 on a pain scale. Quality of pain is described as burning, Pain began 1 day ago. Is intermittent. Neuro: Level of Consciousness is awake, alert, obeys commands, Oriented to person, place, time, situation. Cardiovascular: Heart tones S1 S2 present Capillary refill < 3 seconds Patient's skin is warm and dry. Respiratory: Airway is patent Respiratory effort is even, unlabored, Respiratory pattern is regular, symmetrical, Breath sounds are clear bilaterally. GI: Abdomen is round distended, Bowel sounds present X 4 quads. Abdomen is tender to palpation in right lower quadrant and left lower quadrant Reports nausea, vomiting. : No signs and/or symptoms were reported regarding the genitourinary system. EENT: No signs and/or symptoms were reported regarding the EENT system. Derm: Skin is intact, is healthy with good turgor, Skin is pink, warm \T\ dry. Musculoskeletal: Circulation, motion, and sensation intact. Capillary refill < 3 seconds. 11:39 Reassessment: Patient appears in no apparent distress at this time. Patient and/or ca1 family updated on plan of care and expected duration. Pain level reassessed. Patient is alert, oriented x 3, equal unlabored respirations, skin warm/dry/pink. 12:30 General: Appears in no apparent distress. uncomfortable, Behavior is cooperative, zb appropriate for age, anxious. Pain: Complains of pain in left lower quadrant and abdomen and right lower quadrant and posterior aspect of left lateral abdomen Pain currently is 8 out of 10 on a pain scale. Quality of pain is described as burning, Pain began 1 day ago. Is intermittent. Neuro: Level of Consciousness is awake, alert, obeys commands, Oriented to person, place, time, situation. Cardiovascular: Heart tones S1 S2 Capillary refill < 3 seconds in bilateral fingers Patient's skin is warm and dry. Respiratory: Airway is patent Respiratory effort is even, unlabored, Respiratory pattern is regular, symmetrical. GI: Abdomen is round distended, Bowel sounds present X 4 quads. Abdomen is tender to palpation in right upper quadrant and right lower quadrant Abd is rigid in right upper quadrant and right lower quadrant Reports nausea. : No signs and/or symptoms were reported regarding the genitourinary system. EENT: No signs and/or symptoms were reported regarding the EENT system. Derm: Skin is intact, is healthy with good turgor, Skin is pink, warm \T\ dry. Musculoskeletal: Circulation, motion, and sensation intact. Capillary refill < 3 seconds, in bilateral fingers. Range of motion: intact in all extremities. 13:40 Reassessment: Patient appears in no apparent distress at this time. Patient and/or zb family updated on plan of care and expected duration. Pain level reassessed. Patient is alert, oriented x 3, equal unlabored respirations, skin warm/dry/pink. pt states she is ready to leave. ambulatory. dressed. Vital Signs: 10:08 BP 183 / 89; Pulse 97; Resp 16 S; Temp 98.5(O); Pulse Ox 98% on R/A; Pain 12/16; aa5 11:39 BP 172 / 71; Pulse 87; Resp 16 S; Pulse Ox 98% on R/A; ca1 12:30 BP 163 / 74; Pulse 89; Resp 16; Pulse Ox 99% on R/A; zb ED Course: 09:57 Patient arrived in ED. ag5 10:08 Arm band placed on Patient placed in an exam room, on a stretcher. aa5 10:18 Jenna Baugh RN is Primary Nurse. ca1 10:23 Diego Ang PA is PHCP. cp 10:23 Diego Ramirez MD is Attending Physician. cp 10:30 Patient has correct armband on for positive identification. Placed in gown. Bed in low ca1 position. Call light in reach. Side rails up X2. color television console monitor on. Pulse ox on. NIBP on. Warm blanket given. 10:36 Triage completed. aa5 10:54 Inserted saline lock: 20 gauge in right antecubital area, using aseptic technique. ca1 Blood collected. 10:54 Initial lab(s) drawn, by nv, sent to lab. ca1 12:24 CT Head Brain wo Cont In Process Unspecified. EDMS 12:31 CT Abd/Pelvis - IV Contrast Only In Process Unspecified. EDMS 12:37 Tamiko Garcia, CATY is Primary Nurse. zb 13:34 No provider procedures requiring assistance completed. IV discontinued, intact, zb bleeding controlled, No redness/swelling at site. Pressure dressing applied. Administered Medications: 10:55 Drug: NS 0.9% 500 ml Route: IV; Rate: bolus; Site: right antecubital; ca1 12:01 Follow up: Response: No adverse reaction; IV Status: Completed infusion; IV Intake: ca1 500ml 10:56 Drug: Zofran (Ondansetron) 4 mg Route: IVP; Site: right antecubital; ca1 12:01 Follow up: Response: No adverse reaction ca1 12:49 Drug: Tylenol 1000 mg Route: PO; zb 13:20 Follow up: Response: No adverse reaction; Pain is decreased zb 13:37 Drug: Reglan 10 mg Route: IVP; Site: right antecubital; zb 13:39 Follow up: Response: No adverse reaction zb 13:37 Drug: TORadol - Ketorolac 15 mg Route: IVP; Site: right antecubital; zb 13:39 Follow up: Response: No adverse reaction zb Intake: 12:01 IV: 500ml; Total: 500ml. ca1 Outcome: 13:28 Discharge ordered by MD. cp 13:34 Discharged to home ambulatory. zb 13:34 Condition: stable 13:34 Instructed on discharge instructions, follow up and referral plans. medication usage, Demonstrated understanding of instructions, follow-up care, medications, Prescriptions given X 2. 13:41 Patient left the ED. zb Signatures: Dispatcher [employer] EDMS Bhavna Corado RN RN aa5 Diego Ang PA PA cp Acob, Cheryl, RN RN ca1 Demetrius Lundy 5 Tamiko Garcia RN RN zb Corrections: (The following items were deleted from the chart) 10:38 10:08 Chief complaint: Patient states: RLQ pain and left low back pain that began last aa5 night with nausea and vomiting. Pt denies diarrhea. Pt also c/o high blood pressure and headache. aa5 21:10 21:10 Response: No adverse reaction zb zb 21:14 12:30 BP 163 / 141; Pulse 89bpm; Resp 16bpm; Pulse Ox 99% RA; zb zb
--- NOTE | 2020-02-18 13:28 | EDPHYS ---
Physician Documentation [facility] Name: Jaimie Amanda Age: 59 yrs Sex: Female : 1960 Arrival Date: 02/18/2020 Time: 09:57 Bed 13 Private MD: ED Physician Diego Ramirez HPI: 02/17 10:45 This 59 yrs old Female presents to ER via Ambulatory with complaints of High cp Blood Pressure. 10:45 The patient has elevated blood pressure and discovered this at home. cp 10:45 Onset: The symptoms/episode began/occurred this morning. Associated signs and symptoms: cp Pertinent positives: headache, abdominal pain, Pertinent negatives: chest pain, dizziness, vomiting, weakness. Severity of symptoms: in the emergency department the blood pressure is improved, mildly. Historical: - Allergies: 10:10 Nitroglycerin; aa5 - Home Meds: 10:10 clonidine HCl 0.2 mg oral tab [Active]; aa5 - PMHx: 10:10 Anxiety; Depression; Diabetes - NIDDM; etoh abuse; Hypertension; Hypothyroidism; aa5 Seizures; - Immunization history:: Adult Immunizations up to date. - Social history:: Smoking status: Patient reports the use of cigarette tobacco products, smokes one pack cigarettes per day. ROS: 10:55 Constitutional: Negative for body aches, chills, fever, poor PO intake. cp 10:55 Eyes: Negative for injury, pain, redness, and discharge. cp 10:55 ENT: Negative for ear pain, sore throat, difficulty swallowing, difficulty handling secretions. 10:55 Cardiovascular: Negative for chest pain, edema, palpitations. 10:55 Respiratory: Negative for cough, shortness of breath, wheezing. 10:55 Abdomen/GI: Positive for abdominal pain, Negative for vomiting, diarrhea, constipation. 10:55 : Negative for urinary symptoms. 10:55 Neuro: Positive for headache, Negative for altered mental status, dizziness, syncope, weakness. 10:55 All other systems are negative. Exam: 11:00 Constitutional: The patient appears in no acute distress, alert, awake, cp non-diaphoretic, non-toxic, well developed, well nourished. 11:00 Head/Face: Normocephalic, atraumatic. cp 11:00 Eyes: Periorbital structures: appear normal, Pupils: equal, round, and reactive to light and accomodation, Extraocular movements: intact throughout, Conjunctiva: normal, no exudate, no injection, Sclera: no appreciated abnormality, Lids and lashes: appear normal, bilaterally. 11:00 ENT: External ear(s): are unremarkable, Nose: is normal, Mouth: Lips: moist, Oral mucosa: moist, Posterior pharynx: Airway: no evidence of obstruction, patent. 11:00 Neck: ROM/movement: is normal, is supple, without pain, no range of motions limitations. 11:00 Chest/axilla: Inspection: normal, Palpation: is normal, no crepitus, no tenderness. cp 11:00 Cardiovascular: Rate: normal, Rhythm: regular, Edema: is not appreciated, JVD: is not cp appreciated. 11:00 Respiratory: the patient does not display signs of respiratory distress, Respirations: normal, no use of accessory muscles, no retractions, labored breathing, is not present, Breath sounds: are clear throughout, no decreased breath sounds. 11:00 Abdomen/GI: Inspection: distension, that is mild, Bowel sounds: active, all quadrants, Palpation: soft, in all quadrants, mild abdominal tenderness, in all quadrants. 11:00 Back: CVA tenderness, is absent. 11:00 Neuro: Orientation: to person, place \T\ time. Mentation: able to follow commands, slow to respond, Motor: moves all fours, strength is normal, Gait: is steady. Vital Signs: 10:08 BP 183 / 89; Pulse 97; Resp 16 S; Temp 98.5(O); Pulse Ox 98% on R/A; Pain 10/10; aa5 11:39 BP 172 / 71; Pulse 87; Resp 16 S; Pulse Ox 98% on R/A; ca1 12:30 BP 163 / 74; Pulse 89; Resp 16; Pulse Ox 99% on R/A; zb MDM: 10:25 Patient medically screened. cp 11:00 Differential diagnosis: Malignant HTN, CVA, intracerebral hemorrhage. cp 13:27 Data reviewed: vital signs, nurses notes, lab test result(s), radiologic studies, CT cp scan, and as a result, I will discharge patient. 13:28 Counseling: I had a detailed discussion with the patient and/or guardian regarding: the cp historical points, exam findings, and any diagnostic results supporting the discharge/admit diagnosis, the presence of at least one elevated blood pressure reading (>120/80) during this emergency department visit, lab results, radiology results, the need for outpatient follow up, a family practitioner, to return to the emergency department if symptoms worsen or persist or if there are any questions or concerns that arise at home. 13:28 Response to treatment: the patient's symptoms have markedly improved after treatment, cp and as a result, I will discharge patient. 02/17 10:39 Order name: Basic Metabolic Panel; Complete Time: 11:55 cp 02/17 11:56 Interpretation: Normal except: CL 108; GLUC 120. cp 02/17 10:39 Order name: CBC with Diff; Complete Time: 11:55 cp 02/17 11:56 Interpretation: Normal except: MCV 91.6. cp 02/17 10:39 Order name: Hepatic Function; Complete Time: 11:55 cp 02/17 10:39 Order name: Lipase; Complete Time: 11:55 cp 02/17 10:39 Order name: PT-INR; Complete Time: 11:55 cp 02/17 10:39 Order name: Urine Microscopic Only; Complete Time: 11:55 cp 02/17 10:39 Order name: CT Head Brain wo Cont; Complete Time: 12:55 cp 02/17 11:23 Order name: CT Abd/Pelvis - IV Contrast Only; Complete Time: 12:55 cp 02/17 11:24 Order name: UDS; Complete Time: 12:02 cp 02/17 11:24 Order name: ETOH Level; Complete Time: 12:02 cp 02/17 11:33 Order name: Urine Dipstick--Ancillary (enter results); Complete Time: 11:55 em1 02/17 10:39 Order name: IV Saline Lock; Complete Time: 10:56 cp 02/17 10:39 Order name: Labs collected and sent; Complete Time: 10:56 cp 02/17 10:39 Order name: Urine Dipstick-Ancillary (obtain specimen); Complete Time: 11:18 cp Administered Medications: 10:55 Drug: NS 0.9% 500 ml Route: IV; Rate: bolus; Site: right antecubital; ca1 12:01 Follow up: Response: No adverse reaction; IV Status: Completed infusion; IV Intake: ca1 500ml 10:56 Drug: Zofran (Ondansetron) 4 mg Route: IVP; Site: right antecubital; ca1 12:01 Follow up: Response: No adverse reaction ca1 12:49 Drug: Tylenol 1000 mg Route: PO; zb 13:20 Follow up: Response: No adverse reaction; Pain is decreased zb 13:37 Drug: Reglan 10 mg Route: IVP; Site: right antecubital; zb 13:39 Follow up: Response: No adverse reaction zb 13:37 Drug: TORadol - Ketorolac 15 mg Route: IVP; Site: right antecubital; zb 13:39 Follow up: Response: No adverse reaction zb Disposition: 02/18/20 13:28 Discharged to Home. Impression: Headache, Unspecified abdominal pain, Hypertensive heart disease. - Condition is Stable. - Discharge Instructions: Abdominal Pain, Adult, General Headache Without Cause, Hypertension, Managing Your Hypertension. - Prescriptions for Bentyl 20 mg Oral Tablet - take 2 tablet by ORAL route every 6 hours As needed; 40 tablet. Zofran 4 mg Oral Tablet - take 1 tablet by ORAL route every 12 hours As needed; 20 tablet. - Medication Reconciliation Form, Thank You Letter, Antibiotic Education, Prescription Opioid Use form. - Follow up: Private Physician; When: 1 - 2 days; Reason: Recheck today's complaints. - Problem is new. - Symptoms have improved. Addendum: 02/19/2020 17:54 Co-signature as Attending Physician, Diego Ramirez MD I agree with the assessment and c cordero plan of care. Signatures: Dispatcher [employer] EDDE Diego Ramirez MD MD cha Calderon, Audri RN RN aa5 Diego Ang PA PA cp Jenna Baugh RN RN ca1 Tamiko Garcia RN RN zb Corrections: (The following items were deleted from the chart) 02/17 13:41 13:28 02/18/2020 13:28 Discharged to Home. Impression: Headache; Unspecified abdominal zb pain; Hypertensive heart disease. Condition is Stable. Forms are Medication Reconciliation Form, Thank You Letter, Antibiotic Education, Prescription Opioid Use. Follow up: Private Physician; When: 1 - 2 days; Reason: Recheck today's complaints. Problem is new. Symptoms have improved. cp
[2020-02-18] MEDS ORDERED: METOCLOPRAMIDE 10 MG/2mL INJ ONE (13:32)
[2020-02-18] MEDS ORDERED: KETOROLAC 30 MG/ML INJ ONE (13:32)
[2020-02-18] MEDS ORDERED: NA CHLORIDE 0.9% 100 ML ONE (13:33)
[2020-02-22 16:13] VITALS: TEMP 98.5
[2020-02-22 16:18] VITALS: BP 163/141; O2SAT 99
== END 2020-02-18 13:41 | disposition home or self-care (01) ==
LOC: ER 09:56
DX: I11.9 Hypertensive heart disease without heart failure (principal); R10.9 Unspecified abdominal pain; I10 Essential (primary) hypertension; F41.8 Other specified anxiety disorders; F17.210 Nicotine dependence, cigarettes, uncomplicated; Z88.8 Allergy status to other drugs, medicaments and biological substances
CPT/HCPCS: 36415; 70450; 74177; 80048; 80076; 80307; 80320; 81003; 81015; 83690; 85025; 85610; 96361; 96374; 96375; 99284; J2405; J2765; J7040; Q9967

== ENCOUNTER 2020-02-22 20:06 | Observation (INO) | payer OTHER, SELFPAY ==
--- OUTSIDE RECORDS SUMMARY | 2020-02-22 20:10 | XMS REPORT | Continuity of Care Document ---
:[address] [facility] t Address [address] [place] [address] Care Team Providers Name Role Phone Natacha [...] Department ID 2018-10-21 2018-10-21 Telephone TURNER Back [id number] 00:00:00 00:00:00 Natacha Nguyen [id number] Ade [id number] [facility] [phone] [facility] 204 [facility] Results This patient has no known results.
[2020-02-22 20:38] LABS: Absolute Lymphocytes (CBC) 2.7 K/uL (0.7-4.9); Basophils % 0.7 % (0-1.3); Hematocrit 38.2 % (36.0-45.0); Lymphocytes % 23.6 % (15.3-44.8); MPV 7.8 fL (7.6-11.3); RBC Red Blood Cell Count 4.18 M/uL (3.86-4.86)
[2020-02-22 20:57] LABS: ALT/SGPT 29 U/L (12-78); AST/SGOT 21 U/L (15-37); Albumin 3.9 g/dL (3.4-5.0); Alkaline Phosphatase 122 U/L (45-117); BUN Blood Urea Nitrogen 23 mg/dL (7-18); Bicarbonate 26 mmol/L (21-32); Bilirubin Direct < 0.1 mg/dL (0-0.2); Bilirubin Total 0.2 mg/dL (0.2-1.0); Glucose Level 118 mg/dL (74-106); Magnesium 2.1 mg/dL (1.8-2.4); NT PRO-BNP 81 pg/mL (<125); Potassium 4.4 mmol/L (3.5-5.1); Protein, Total 7.6 g/dL (6.4-8.2); Sodium Level 143 mmol/L (136-145); Thyroid Stimulating Hormone 0.032 uIU/mL (0.360-3.740); Troponin (Emerg Dept Use Only) < 0.02 ng/mL (0.0-0.045)
[2020-02-22 20:59] LABS: Protime INR 0.86
[2020-02-22] MEDS ORDERED: LORazepam 2 MG/ML VIAL ONE ×2 (21:18→23:32)
[2020-02-22 21:20] LABS: Barbiturates NEGATIVE (NEGATIVE); Benzodiazepines NEGATIVE (NEGATIVE); Cocaine NEGATIVE (NEGATIVE); METHAMPHETAM NEGATIVE (NEGATIVE); Methadone NEGATIVE (NEGATIVE); Opiates NEGATIVE (NEGATIVE); Phencyclidine NEGATIVE (NEGATIVE); THC Cannibis NEGATIVE (NEGATIVE)
--- NOTE | 2020-02-22 21:28 | RAD REPORT ---
EXAM DESCRIPTION: Trina Single View02/22/2020 8:55 pm CLINICAL HISTORY: Chest pain COMPARISON: August 2019 FINDINGS: The lungs appear clear of acute infiltrate. The heart is normal size. The left base is cordero zy likely secondary to epicardial fat IMPRESSION: No acute abnormalities displayed
[2020-02-22 21:55] LABS: Lipase 165 U/L (73-393)
--- NOTE | 2020-02-22 22:23 | EDPHYS ---
Physician Documentation [facility] Name: Jaimie Amanda Age: 59 yrs Sex: Female : 1960 Arrival Date: 02/22/2020 Time: 20:09 Bed 5 Private MD: ED Physician Gsutavo Reed HPI: 02/21 20:40 This 59 yrs old Female presents to ER via EMS with complaints of Altered mh7 Mental Status. 20:40 The patient presents with confusion. Onset: The symptoms/episode began/occurred today, mh7 at an unknown time. Possible causes: unknown. 20:41 Associated signs and symptoms: Pertinent positives: back pain, confusion. mh7 22:14 Current symptoms: In the emergency department the patient's symptoms are unchanged from mh7 the initial presentation. Patient's baseline: Neuro: alert and fully oriented, Motor: no deficits, Ambulation: walks without assistance, Speech: normal. The patient has experienced a previous episode, approximately 6 months ago. Historical: - Allergies: 20:23 Nitroglycerin; ea - PMHx: 20:15 Anxiety; Depression; Diabetes - NIDDM; etoh abuse; Hypertension; Hypothyroidism; sg Seizures; - PSHx: 20:57 Thyroidectomy; Hernia repair; sg - Immunization history:: Adult Immunizations unknown. - Social history:: Smoking status: unknown. ROS: 22:16 Unable to obtain ROS due to altered mental status, Restless. mh7 Exam: 22:16 Head/Face: Normocephalic, atraumatic. Eyes: Pupils equal round and reactive to light, mh7 extra-ocular motions intact. Lids and lashes normal. Conjunctiva and sclera are non-icteric and not injected. Cornea within normal limits. Periorbital areas with no swelling, redness, or edema. Neck: Trachea midline, no thyromegaly or masses palpated, and no cervical lymphadenopathy. Supple, full range of motion without nuchal rigidity, or vertebral point tenderness. No Meningismus. Chest/axilla: Normal chest wall appearance and motion. Nontender with no deformity. No lesions are appreciated. Cardiovascular: Regular rate and rhythm with a normal S1 and S2. No gallops, murmurs, or rubs. Normal PMI, no JVD. No pulse deficits. Respiratory: Lungs have equal breath sounds bilaterally, clear to auscultation and percussion. No rales, rhonchi or wheezes noted. No increased work of breathing, no retractions or nasal flaring. Abdomen/GI: Soft, non-tender, with normal bowel sounds. No distension or tympany. No guarding or rebound. No evidence of tenderness throughout. Back: No spinal tenderness. No costovertebral tenderness. Full range of motion. Skin: Warm, dry with normal turgor. Normal color with no rashes, no lesions, and no evidence of cellulitis. MS/ Extremity: Pulses equal, no cyanosis. Neurovascular intact. Full, normal range of motion. 22:16 Constitutional: The patient appears alert, awake, restless, talking to herself 22:16 Neuro: Orientation: to person, Mentation: able to follow commands, confused, Talking to self, Memory: unable to test, confused, repeating herself, Cranial nerves: unable to test, confused, Cerebellar function: Motor: moves all fours, Sensation: is normal, Gait: not tested. Deep tendon reflexes are normal, Babinski testing is normal, seizure activity, is not displayed by the patient, Abnormal movements: there are no abnormal movements. 22:16 Psych: Behavior/mood is anxious, Affect is animated, Oriented to person. Vital Signs: 20:17 BP 163 / 57; Pulse 85; Resp 18; Temp 97.6; Pulse Ox 98% on R/A; Height 5 ft. 7 in. ea (170.18 cm); 22:51 BP 122 / 78; Pulse 97; Resp 18; Pulse Ox 97% on R/A; ea 02/22 01:11 BP 150 / 71; Pulse 77; Resp 18; Temp 97.8; Pulse Ox 99% on R/A; ea MDM: 02/21 22:16 Differential Diagnosis: CVA, electrolyte abnormality, alcohol intoxication, mh7 hypoglycemia, intracranial bleed, overdose, pneumonia, seizure, TIA, UTI, volume depletion. Data reviewed: vital signs, nurses notes, EMS record, old medical records, lab test result(s), cardiac enzymes, CBC, drug level(s), electrolytes, urinalysis, urine drug screen, EKG, radiologic studies, CT scan, plain films. Data interpreted: Pulse oximetry: on room air is 98 %. Interpretation: normal. Counseling: I had a detailed discussion with the patient and/or guardian regarding: the historical points, exam findings, and any diagnostic results supporting the discharge/admit diagnosis, the presence of at least one elevated blood pressure reading (>120/80) during this emergency department visit, lab results, radiology results, the need for further work-up and treatment in the hospital. Response to treatment: the patient's symptoms have markedly improved after treatment. 22:23 Patient medically screened. [facility] 02/21 20:20 Order name: Basic Metabolic Panel; Complete Time: 21:58 [facility] 02/21 20:20 Order name: CBC with Diff; Complete Time: 21:00 [facility] 02/21 20:20 Order name: LFT's; Complete Time: 21:58 [facility] 02/21 20:20 Order name: Magnesium; Complete Time: :58 [facility] 02/21 20:20 Order name: NT PRO-BNP; Complete Time: 21:58 [facility] 02/21 20:20 Order name: PT-INR; Complete Time: 21:06 [facility] 02/21 20:20 Order name: Troponin (emerg Dept Use Only); Complete Time: 21:58 [facility] 02/21 20:21 Order name: UDS; Complete Time: 21:27 [facility] 02/21 20:21 Order name: ETOH Level; Complete Time: 21:00 [facility] 02/21 20:21 Order name: Acetaminophen; Complete Time: 21:58 [facility] 02/21 20:21 Order name: Salicylate; Complete Time: 21:00 [facility] 02/21 20:21 Order name: AMMONIA; Complete Time: 21:00 [facility] 02/21 20:21 Order name: TSH; Complete Time: 21:58 [facility] 02/21 20:37 Order name: Glucose, Ancillary Testing; Complete Time: 20:42 [facility] 02/21 20:20 Order name: XRAY Chest (1 view); Complete Time: 21:40 [facility] 02/21 20:20 Order name: EKG; Complete Time: 20:21 [facility] 02/21 20:20 Order name: Cardiac monitoring; Complete Time: 20:30 [facility] 02/21 20:25 Order name: CT Head Brain wo Cont [facility] 02/21 20:26 Order name: CT Abd/Pelvis - IV Contrast Only [facility] 02/21 20:37 Order name: Glucose, Ancillary Testing [facility] 02/21 20:54 Order name: Urine Dipstick--Ancillary (enter results); Complete Time: 23:27 [facility] 02/21 20:54 Order name: Urine --Ancillary (enter results); Complete Time: 23:27 [facility] 02/21 21:00 Order name: Lipase; Complete Time: 21:58 [facility] 02/21 21:01 Order name: CT Chest For PE Angio [facility] 02/21 22:57 Order name: COVID-19 02/22 00:24 Order name: SARS-COV-2 RT PCR [facility] 02/21 20:20 Order name: EKG - Nurse/Tech; Complete Time: 20:40 [facility] 02/21 20:20 Order name: IV Saline Lock; Complete Time: 20:30 [facility] 02/21 20:20 Order name: Labs collected and sent; Complete Time: 20:30 [facility] 02/21 20:21 Order name: O2 Per Protocol; Complete Time: 20:30 [facility] 02/21 20:21 Order name: O2 Sat Monitoring; Complete Time: 20:30 [facility] 02/21 20:21 Order name: Urine Dipstick-Ancillary (obtain specimen); Complete Time: 20:58 [facility] 02/21 20:35 Order name: Straight Cath; Complete Time: 20:52 ea Administered Medications: 21:08 Drug: Ativan 0.5 mg Route: IVP; Site: right antecubital; ea 22:15 Follow up: Response: No adverse reaction; RASS: Alert and Calm (0) 23:30 Drug: Ativan 0.5 mg Route: IVP; Site: right antecubital; 02/22 01:15 Follow up: Response: No adverse reaction ea Disposition: 02/22/20 22:23 Hospitalization ordered by Joseph Gustafson for Inpatient Admission. Preliminary diagnosis is Altered mental status, unspecified. - Bed requested for Telemetry/MedSurg (Inpatient). - Status is Inpatient Admission. ea - Condition is Stable. - Problem is an acute exacerbation. - Symptoms have improved. Signatures: Dispatcher [employer] EDMS Kush Segovia RN RN sg Paras Naik PA PA [id number] Mali Milian RN RN tl1 Myrtle Henry RN RN Gustavo Wilkins MD MD 7 Corrections: (The following items were deleted from the chart) 02/21 20:26 20:15 Allergies: Nitroglycerin; sg ea 21:00 20:42 LIPASE+C.LAB.BRZ ordered. EDKY EDMS 23:21 22:57 CORONAVIRUS ordered. EDKY EDKY 02/22 00:48 02/21 22:23 Hospitalization Ordered by Joseph Gustafson MD for Inpatient Admission. tl1 Preliminary diagnosis is Altered mental status, unspecified. Bed requested for Telemetry/MedSurg (Inpatient). Status is Inpatient Admission. Condition is Stable. Problem is an acute exacerbation. Symptoms have improved. [facility] 02/22 01:15 00:48 02/22/2020 22:23 Hospitalization Ordered by Joseph Gustafson MD for Inpatient ea Admission. Preliminary diagnosis is Altered mental status, unspecified. Bed requested for Telemetry/MedSurg (Inpatient). Status is Inpatient Admission. Condition is Stable. Problem is an acute exacerbation. Symptoms have improved. tl1
--- NOTE | 2020-02-22 22:23 | ER ---
Nurse's Notes [facility] Name: Jaimie Amanda Age: 59 yrs Sex: Female : 1960 Arrival Date: 02/22/2020 Time: 20:09 Bed 5 Private MD: Diagnosis: Altered mental status, unspecified Presentation: 02/21 20:17 Chief complaint: EMS states: Toned out to pt's home, EMS reported pt was altered ea complaining of back pain, EMS reported abdominal distension. Family reported to EMS an hour ago she was vacuuming acting normal. Coronavirus screen: At this time, the client does not indicate any symptoms associated with coronavirus-19. Ebola Screen: No symptoms or risks identified at this time. Initial Sepsis Screen: Does the patient meet any 2 criteria? No. Patient's initial sepsis screen is negative. Does the patient have a suspected source of infection? No. Patient's initial sepsis screen is negative. Risk Assessment: Do you want to hurt yourself or someone else? Patient reports no desire to harm self or others. Onset of symptoms was February 22, 2020. 20:17 Method Of Arrival: EMS: [facility] ea 20:17 Acuity: ZHEN 3 ea Triage Assessment: 20:22 General: Appears in no apparent distress. Behavior is drowsy. Pain: Complains of pain ea in back. Neuro: Level of Consciousness is groggy. Oriented to person, place. Respiratory: Airway is patent Respiratory effort is even, unlabored, Respiratory pattern is regular, symmetrical. Derm: Skin is pink, warm \T\ dry. 20:22 GI: Abdomen is distended, Abd is soft and non tender X 4 quads. ea Historical: - Allergies: 20:23 Nitroglycerin; ea - PMHx: 20:15 Anxiety; Depression; Diabetes - NIDDM; etoh abuse; Hypertension; Hypothyroidism; sg Seizures; - PSHx: 20:57 Thyroidectomy; Hernia repair; sg - Immunization history:: Adult Immunizations unknown. - Social history:: Smoking status: unknown. Screenin:21 Abuse screen: Denies threats or abuse. Nutritional screening: No deficits noted. ea Tuberculosis screening: No symptoms or risk factors identified. Fall Risk None identified. Assessment: 20:26 Reassessment: see triage assessment. ea 21:00 Reassessment: Pt remains groggy and restless, Respirations even and unlabored, chest ea expansions even and symmetrical. No s/s of pain or discomfort noted at this time. 21:18 Reassessment: Brother Jose Daniel and sister in law Sheila . ea 21:19 Reassessment: Pt taken to CT. ea 22:00 Reassessment: Patient and/or family updated on plan of care and expected duration. Pain ea level reassessed. Pt resting with eyes closed, respirations even and unlabored, chest expansions even and symmetrical. No s/s of pain or discomfort noted at this time. 22:56 Reassessment: Sheila notified of plan of care, verbalized the understanding of plan. ea 02/22 00:55 Reassessment: Patient and/or family updated on plan of care and expected duration. Pain ea level reassessed. Report called to receiving nurse on second floor. 01:13 Reassessment: Patient and/or family updated on plan of care and expected duration. Pain ea level reassessed. Pt resting with eyes closed, respirations even and unlabored, chest expansions even and symmetrical. Pt admitted to second floor, left ED via stretcher per technical publications manager. Pt tolerating well. Vital Signs: 02/21 20:17 BP 163 / 57; Pulse 85; Resp 18; Temp 97.6; Pulse Ox 98% on R/A; Height 5 ft. 7 in. ea (170.18 cm); 22:51 BP 122 / 78; Pulse 97; Resp 18; Pulse Ox 97% on R/A; ea 02/22 01:11 BP 150 / 71; Pulse 77; Resp 18; Temp 97.8; Pulse Ox 99% on R/A; ea ED Course: 02/21 20:09 Patient arrived in ED. am2 20:10 Gustavo Reed MD is Attending Physician. 7 20:21 Triage completed. ea 20:21 Arm band placed on right wrist. Patient placed in an exam room, on a stretcher, on ea engine monitor, on pulse oximetry. 20:21 Patient has correct armband on for positive identification. Placed in gown. Bed in low ea position. Call light in reach. Side rails up X2. engine monitor on. Pulse ox on. NIBP on. 20:27 Maintain EMS IV. Dressing intact. Good blood return noted. Site clean \T\ dry. Gauge \T\ ea site: 18 G Right AC. 20:30 Myrtle Henry, RN is Primary Nurse. ea 20:52 Straight cath inserted, using sterile technique, 18 Fr. Specimen obtained. Returned ea clear yellow urine. Patient tolerated well. 20:53 XRAY Chest (1 view) In Process Unspecified. EDMS 21:29 CT Head Brain wo Cont In Process Unspecified. EDMS 21:32 CT Chest For PE Angio In Process Unspecified. EDMS 21:35 CT Abd/Pelvis - IV Contrast Only In Process Unspecified. EDMS 22:22 Joseph Gustafson MD is Hospitalizing Provider. [facility] 02/22 01:10 No provider procedures requiring assistance completed. Patient admitted, IV remains in ea place. Administered Medications: 02/21 21:08 Drug: Ativan 0.5 mg Route: IVP; Site: right antecubital; ea 22:15 Follow up: Response: No adverse reaction; RASS: Alert and Calm (0) ea 23:30 Drug: Ativan 0.5 mg Route: IVP; Site: right antecubital; ea 02/22 01:15 Follow up: Response: No adverse reaction ea Outcome: 02/21 22:23 Decision to Hospitalize by Provider. [facility] 02/22 01:10 Admitted to Med/surg accompanied by tech, room 225, with chart, Report called to ea Receiving nurse Condition: stable Instructed on the need for admit, Demonstrated understanding of instructions. 01:15 Patient left the ED. ea Signatures: Dispatcher [employer] Kush Renteria RN RN sg Moreno, Amanda [facility] Myrtle Henry RN RN ea Holmes, Maurice, MD MD 7 Corrections: (The following items were deleted from the chart) 02/21 20:26 20:15 Allergies: Nitroglycerin; jose antonio 02/22 01:14 01:13 Reassessment: Patient and/or family updated on plan of care and expected ea duration. Pain level reassessed. Pt resting with eyes closed, respirations even and unlabored, chest expansions even and symmetrical. ea
[2020-02-22 22:44] LABS: Urine Blood TRACE (NEG); Urine Glucose 1+ (NEG); Urine Protein NEGATIVE (NEG); Urine Specific Gravity 1.025 (1.005-1.030); Urine pH 5.5 (5.0-7.0)
[2020-02-23] MEDS ORDERED: LORazepam 2 MG/ML VIAL IV PRN (01:37)
[2020-02-23] MEDS ORDERED: ONDANSETRON 4 MG/2 ML VIAL IV PRN (01:37)
[2020-02-23] MEDS: NA CHLORIDE 0.9% 1,000 ML IV SCH ×2 (02:00→11:37)
[2020-02-23 02:04] VITALS: BMI 27.8
--- NOTE | 2020-02-23 03:18 | P.HP ---
Certification for Inpatient Patient admitted to: Observation With expected LOS: <2 Midnights Patient will require the following post-hospital care: None Practitioner: I am a practitioner with admitting privileges, knowledge of patient current condition, hospital course, and medical plan of care. Services: Services provided to patient in accordance with Admission requirements found in Title 42 Section 412.3 of the Code of Federal Regulations <Micah Naik - Last Filed: 02/23/20 03:13> Patient History Date of Service: 02/23/20 Reason for admission: Altered Mental Status History of Present Illness: This is a 59-year-old female that was brought in to the emergency room today for altered mental status acutely started. Family stated that after patient had gone down for a nap, woke up confused. Family stated that this is happened 1 other time in the past and was admitted and found that she had possibly taken too much of her medication along with having some other issues. Patient worked up in the emergency room and found to have a slightly low T. S. H. but no other acute laboratory findings including drug screen, ETOH, ammonia. CT and chest x- ray both negative. Patient currently alert and oriented to person and place. Medicine was consulted at that time for further evaluation admission due to altered mental status of unknown origin. Home medications list reviewed: Yes - Past Medical/Surgical History Diabetic: No -: Hepatitis -: Anxiety -: HTN -: Hypothyroidism -: Alcoholic induce seizures -: Thyroidectomy -: Plastic surgery breast -: hernia repair - Family History Mother -: Hypertension, Diabetes, Cancer Notes: Thyroid, Knee replacement Father -: Heart disease, Hypertension, Diabetes - Social History Smoking Status: Current every day smoker Smoking therapy provided: No (Altered) Alcohol use: No CD- Drugs: No Caffeine use: Yes Place of Residence: Home <Micah Naik - Last Filed: 02/23/20 03:13> Date of Service: 02/22/20 <Joseph Gustafson - Last Filed: 02/28/20 13:51> Allergies nitroglycerin Adverse Reaction (Verified 07/05/18 06:27) severe hypotension Home Medications: Baclofen [Lioresal*] 10 mg PO TIDP PRN 02/23/20 Buspirone HCl [Buspar*] 1 tab PO QID 02/23/20 Clonidine HCl [Catapres*] 0.2 mg PO BID 02/23/20 Clonidine HCl [Catapres] 0.1 mg PO DAILY PRN 02/23/20 Dicyclomine [Bentyl*] 10 mg PO Q6HP PRN 02/23/20 Levothyroxine Sodium [Levothyroxine] 125 mcg PO [id number] 02/23/20 Liothyronine Sodium [Cytomel] 5 mcg PO [id number] 02/23/20 Losartan/Hydrochlorothiazide [Losartan-Hctz 100-25 mg Tab] 1 tab PO DAILY 02/23/20 Metformin ER [Glucophage ER*] 1 tab PO BID 02/23/20 Mirtazapine [Remeron*] 1 tab PO BEDTIME 02/23/20 OXcarbazepine [Oxcarbazepine] 1,200 mg PO BEDTIME 02/23/20 OXcarbazepine [Oxcarbazepine] 600 mg PO DAILY 02/23/20 Omeprazole [Prilosec] 40 mg PO DAILY 02/23/20 Ondansetron HCl [Zofran] 1 tab PO Q8H PRN 02/23/20 PARoxetine HCL [Paroxetine HCl] 1 tab PO DAILY 02/23/20 Risperidone [Risperdal] 1 tab PO BID 02/23/20 Review of Systems General: Unremarkable Eyes: Unremarkable ENT: Unremarkable Respiratory: Unremarkable Cardiovascular: Unremarkable Gastrointestinal: Unremarkable Musculoskeletal: Unremarkable Integumentary: Unremarkable Neurological: As per HPI Lymphatics: Unremarkable <Micah Naik - Last Filed: 02/23/20 03:13> Physical Examination - Vital Signs Temperature: 97.2 F Blood Pressure: 129/62 Pulse: 76 Respirations: 20 Pulse Ox (%): 97 - Physical Exam General: Alert, Oriented x2, Cooperative HEENT: PERRLA, Mucous membr. moist/pink, EOMI Neck: Supple, 2+ carotid pulse no bruit, JVD not distended Respiratory: Clear to auscultation bilaterally, Normal air movement Cardiovascular: No edema, Normal pulses, Regular rate/rhythm, Normal S1 S2, No gallops, No rubs, No murmurs Capillary refill: <2 Seconds Gastrointestinal: Normal bowel sounds, Soft and benign, Non-distended, No ascites, No tenderness, No masses, No rebound, No guarding Musculoskeletal: No clubbing, No swelling, No contractures, No erythema, No tend erness, No warmth Integumentary: No rashes, No breakdown, No significant lesion, No tenderness/swelling, No erythema, No warmth, No cyanosis Neurological: Normal speech, Normal strength at 5/5 x4 extr, Normal tone, Cranial nerves 3-12 intact, Other (Confused) Lymphatics: No axilla or inguinal lymphadenopathy - Studies Laboratory Data (last 24 hrs) 02/22/20 20:42: Lipase Cancelled 02/22/20 20:20: PT 10.2, INR 0.86 02/22/20 20:20: WBC 11.5 H D, Hgb 12.9, Hct 38.2, Plt Count 350 02/22/20 20:20: Sodium 143, Potassium 4.4, BUN 23 H, Creatinine 0.64, Glucose 118 H, Magnesium 2.1, Total Bilirubin 0.2, AST 21, ALT 29, Alkaline Phosphatase 122 H, Lipase 165 <Micah Naik - Last Filed: 02/23/20 03:13> Assessment and Plan - Problems (Diagnosis) (1) Hypothyroid Status: Chronic Qualifiers: Hypothyroidism type: unspecified Qualified Code(s): E03.9 - Hypothyroidism, unspecified (2) Diabetes Status: Chronic Qualifiers: Diabetes mellitus type: type 2 Diabetes mellitus correction insulin use: with exterminator use Diabetes mellitus complication status: without complication Qualified Code(s): E11.9 - Type 2 diabetes mellitus without complications; Z79.4 - intermediate frame tender (current) use of insulin (3) Altered mental status Status: Acute Qualifiers: Altered mental status type: transient alteration of awareness Qualified Code(s): R40.4 - Transient alteration of awareness (4) Hypertension Onset Date: 11/21/16 Status: Chronic Qualifiers: Hypertension type: essential hypertension Qualified Code(s): I10 - Essential (primary) hypertension - Plan 1. Patient will be put in the telemetry floor for further monitoring 2. Patient will have neuro checks and vital sign checks repeatedly for the next 24 hr or so 3. Patient remained on fluids for general hydration 4. Repeat labs in the morning 5. Monitor patient for mentation to see if it improves over the next 23 hr. Patient was worked up extensively in the emergency room to find no other metabolic abnormality that would explain to altered mentation. This could be secondary side effects of her medications as she is on several antidepressive medicines. Discharge Plan: Home Plan to discharge in: 24 Hours - Advance Directives Does patient have a Living Will: No Does patient have a Durable POA for Healthcare: No - Code Status/Comfort Care Code Status Assessed: Yes Code Status: Full Code Critical Care: No Time Spent Managing Pts Care (In Minutes): 70 <Micah Naik - Last Filed: 02/23/20 03:13> Date of Service: 02/22/20 Chart has been reviewed. Events of the last 24 hours have been noted. Patient was admitted for observation stay for altered mental status. She will be observed over the first 24 hours to make sure patient returned back to baseline. Anticipate discharge later tomorrow morning. <Joseph Gustafson - Last Filed: 02/28/20 13:51>
[2020-02-23 04:04] VITALS: O2SAT 93
[2020-02-23 04:34] LABS: BUN Blood Urea Nitrogen 18 mg/dL (7-18); Bicarbonate 26 mmol/L (21-32); Glucose Level 130 mg/dL (74-106); Potassium 3.9 mmol/L (3.5-5.1); Sodium Level 143 mmol/L (136-145)
[2020-02-23 04:40] LABS: Absolute Lymphocytes (CBC) 2.9 K/uL (0.7-4.9); Basophils % 0.6 % (0-1.3); Hematocrit 37.4 % (36.0-45.0); Lymphocytes % 29.5 % (15.3-44.8); MPV 8.1 fL (7.6-11.3); RBC Red Blood Cell Count 4.05 M/uL (3.86-4.86)
[2020-02-23 05:29] LABS: Arterial Blood Carboxyhemoglob 0.4 % (0-1.5); Blood O2 Saturation 92.1 % (92-98.5)
[2020-02-23] MEDS ORDERED: MORPHINE 2 MG/ML SYR IV ONE (05:58)
[2020-02-23] MEDS ORDERED: cloNIDine HCL 0.1 MG TAB PO SCH (10:05)
[2020-02-23] MEDS ORDERED: cloNIDine HCL 0.1 MG TAB PO PRN (10:05)
[2020-02-23] MEDS ORDERED: DICYCLOMINE HCL 10 MG CAP PO PRN (10:05)
[2020-02-23] MEDS ORDERED: BACLOFEN 10 MG TAB PO PRN (10:05)
[2020-02-23] MEDS ORDERED: ONDANSETRON 4 MG (ODT) TAB PO PRN (10:05)
[2020-02-23] MEDS ORDERED: PARoxetine HCL 10 MG TAB PO SCH (10:05)
[2020-02-23] MEDS ORDERED: OXcarbazepine 150 MG TAB PO SCH ×2 (10:05→21:00)
--- NOTE | 2020-02-23 10:53 | RAD REPORT ---
EXAM DESCRIPTION: CT HEAD WITHOUT IV CONTRAST CLINICAL HISTORY: Confusion. COMPARISON: 08/24/2019 TECHNIQUE: CT scan of the brain was performed without IV contrast. This exam was performed accordi ng to our departmental dose-optimization program, which includes automated exposure control, adjustme nt of the mA and/or kV according to patient size and/or use of iterative reconstruction technique. FINDINGS: The ventricles, cisterns, and sulci are age-appropriate. No evidence of acute infarction, intracranial hemorrhage, extra-axial fluid collection, or midline shift. No air-fluid levels are seen in the paranasal sinuses to suggest acute sinusitis. No depressed skull fracture. IMPRESSION: No acute intracranial findings. Electronically signed by: Edmond Smith MD 02/22/2020 9:51 PM SYSTEM ADMINISTRATION MANAGER Due to temporary technical issues with the PACS/Fluency reporting system, reports are being signed by the in house radiologist without review as a courtesy to ensure prompt reporting. The interpreting r adiologist is fully responsible for the content of the report.
--- NOTE | 2020-02-23 10:56 | RAD REPORT ---
EXAM DESCRIPTION: CT ABDOMEN PELVIS WITH IV CONTRAST CLINICAL HISTORY: Abdominal pain. COMPARISON: 02/18/2020 TECHNIQUE: CT scan of the abdomen and pelvis was performed with IV contrast. This exam was performed according to our departmental dose-optimization program, which includes automated exposure control, adjustment of the mA and/or kV according to patient size and/or use of iterative reconstruction techn ique. FINDINGS: Lung bases are clear without pleural or pericardial effusions. There is no hiatal hernia. There is a small cyst in the liver. The gallbladder, spleen, pancreas, adrenal glands, kidneys, and p elvic organs are normal. No obstructing urinary stones are identified. The stomach and duodenum are unremarkable. The small bowel is normal without evidence of inflammation or obstruction. The appendix is also unremarkable. There is no evidence of acute diverticulitis. No intraperitoneal adenopathy, free fluid, or free air is identified. The abdominal aorta is normal in caliber. No acute bony findings are identified. There is no patholog ic body wall hernia. IMPRESSION: No acute abdominal or pelvic findings. Electronically signed by: Edmond Smith MD 02/22/2020 9:58 PM PIT LABORER Due to temporary technical issues with the PACS/Fluency reporting system, reports are being signed by the in house radiologist without review as a courtesy to ensure prompt reporting. The interpreting r adiologist is fully responsible for the content of the report.
--- NOTE | 2020-02-23 10:57 | RAD REPORT ---
EXAM DESCRIPTION: CT CHEST ANGIOGRAPHY WITH IV CONTRAST CLINICAL HISTORY: Shortness of breath. COMPARISON: None. TECHNIQUE: CT angiogram of the chest with IV contrast. 3-D MIP images were obtained in coronal and s agittal reconstructions. This exam was performed according to our departmental dose-optimization prog aman, which includes automated exposure control, adjustment of the mA and/or kV according to patient s ize and/or use of iterative reconstruction technique. FINDINGS: No filling defects are identified in the pulmonary trunk, main left and right pulmonary ar teries, or the segmental branches. The thyroid gland is normal. No mediastinal or hilar adenopathy. The heart size is normal without per icardial effusion. The thoracic aorta is normal caliber. No consolidation, pleural effusion, or pneum othorax is identified. The visualized upper abdomen demonstrates no acute findings. No acute osseous findings are seen. IMPRESSION: No acute pulmonary embolism. Electronically signed by: Edmond Smith MD 02/22/2020 9:54 PM POLE MAKER Due to temporary technical issues with the PACS/Fluency reporting system, reports are being signed by the in house radiologist without review as a courtesy to ensure prompt reporting. The interpreting r adiologist is fully responsible for the content of the report.
--- NOTE | 2020-02-23 11:14 | P.DS ---
Discharge Date: 02/23/20 Disposition: ROUTINE DISCHARGE Discharge Condition: GOOD Reason for Admission: Altered Mental Status Brief History of Present Illness: This is a 59-year-old female that was brought in to the emergency room today for altered mental status acutely started. Family stated that after patient had gone down for a nap, woke up confused. Family stated that this is happened 1 other time in the past and was admitted and found that she had possibly taken too much of her medication along with having some other issues. Patient worked up in the emergency room and found to have a slightly low T. S. H. but no other acute laboratory findings including drug screen, ETOH, ammonia. CT and chest x- ray both negative. Patient currently alert and oriented to person and place. Medicine was consulted at that time for further evaluation admission due to altered mental status of unknown origin. Hospital Course: Patient is clinically doing much better. She is doing well and she is requesting to go home. At this time, patient is stable for discharge with outpatient followup. Will also advised following up with a neurologist for further workup for possible seizure disorder. Vital Signs/Physical Exam: Temp Pulse Resp BP Pulse Ox 97.2 F 84 20 177/74 H 94 02/23/20 08:00 02/23/20 10:47 02/23/20 08:00 02/23/20 10:47 02/23/20 08:00 General: Alert, In no apparent distress, Oriented x3 Laboratory Data at Discharge: WBC 10.0 K/uL (4.3-10.9) 02/23/20 03:41 Hgb 12.7 g/dL (12.0-15.0) 02/23/20 03:41 Hct 37.4 % (36.0-45.0) 02/23/20 03:41 Plt Count 316 K/uL (152-406) 02/23/20 03:41 PT 10.2 SECONDS (9.5-12.5) 02/22/20 20:20 INR 0.86 02/22/20 20:20 Sodium 143 mmol/L (136-145) 02/23/20 03:41 Potassium 3.9 mmol/L (3.5-5.1) 02/23/20 03:41 BUN 18 mg/dL (7-18) 02/23/20 03:41 Creatinine 0.55 mg/dL (0.55-1.3) 02/23/20 03:41 Glucose 130 mg/dL (74-106) H 02/23/20 03:41 Magnesium 2.1 mg/dL (1.8-2.4) 02/22/20 20:20 Total Bilirubin 0.2 mg/dL (0.2-1.0) 02/22/20 20:20 AST 21 U/L (15-37) 02/22/20 20:20 ALT 29 U/L (12-78) 02/22/20 20:20 Alkaline Phosphatase 122 U/L (45-117) H 02/22/20 20:20 Lipase Cancelled 02/22/20 20:42 Home Medications: Baclofen [Lioresal*] 10 mg PO TIDP PRN 02/23/20 Buspirone HCl [Buspar*] 1 tab PO QID 02/23/20 Clonidine HCl [Catapres*] 0.2 mg PO BID 02/23/20 Clonidine HCl [Catapres] 0.1 mg PO DAILY PRN 02/23/20 Dicyclomine [Bentyl*] 10 mg PO Q6HP PRN 02/23/20 Levothyroxine Sodium [Levothyroxine] 125 mcg PO [id number] 02/23/20 Liothyronine Sodium [Cytomel] 5 mcg PO [id number] 02/23/20 Losartan/Hydrochlorothiazide [Losartan-Hctz 100-25 mg Tab] 1 tab PO DAILY 02/23/20 Metformin ER [Glucophage ER*] 1 tab PO BID 02/23/20 Mirtazapine [Remeron*] 1 tab PO BEDTIME 02/23/20 OXcarbazepine [Oxcarbazepine] 1,200 mg PO BEDTIME 02/23/20 OXcarbazepine [Oxcarbazepine] 600 mg PO DAILY 02/23/20 Omeprazole [Prilosec] 40 mg PO DAILY 02/23/20 Ondansetron HCl [Zofran] 1 tab PO Q8H PRN 02/23/20 PARoxetine HCL [Paroxetine HCl] 1 tab PO DAILY 02/23/20 Risperidone [Risperdal] 1 tab PO BID 02/23/20 Patient Discharge Instructions: OK TO DC IV AND DC HOME. FOLLOW-UP WITH PRIMARY CARE PROVIDER IN 1-2 WEEKS. RETURN TO THE ER IF symptoms worsen. CALL or TEXT DR. CUELLAR AT [phone] IF ANY QUESTIONS REGARDING HOSPITAL STAY. PLEASE CALL THE FLOOR AT [phone] IF ANY MEDICATION OR NURSING QUESTIONS. Diet: AHA Activity: Fall precautions Followup: NEER[facility] CENTR [Primary Care Provider] - Time spent managing pt's care (in minutes): 35
[2020-02-23 12:42] VITALS: BP 180/90; TEMP 98.1
[2020-02-23] MEDS ORDERED: BUSPIRONE HCL 5 MG TABLET PO SCH (13:00)
[2020-02-23] MEDS ORDERED: METFORMIN ER 500 MG TAB PO SCH (17:00)
[2020-02-23] MEDS ORDERED: RISPERIDONE 1 MG TABLET PO SCH (21:00)
[2020-02-24] MEDS ORDERED: LIOTHYRONINE SOD 5 MCG TAB PO SCH (06:00)
[2020-02-24] MEDS ORDERED: LEVOTHYROXINE SOD 0.125 MG TAB PO SCH (06:00)
[2020-02-24] MEDS ORDERED: PANTOPRAZOLE 40MG TABLET PO SCH (09:00)
[2020-02-24] MEDS ORDERED: LOSARTAN/HCTZ 50-12.5 PO SCH (09:00)
== END 2020-02-23 12:23 | disposition home or self-care (01) ==
LOC: ER 20:06 → ERHOLD 23:33 → 2ND 02-23 01:07
PROVIDERS: ADMIT Hospitalist; ATTEND Hospitalist
DX: R41.82 Altered mental status, unspecified (principal); F41.9 Anxiety disorder, unspecified; I10 Essential (primary) hypertension; E03.9 Hypothyroidism, unspecified; K75.9 Inflammatory liver disease, unspecified; Z20.828 Contact with and (suspected) exposure to other viral communicable diseases; E11.9 Type 2 diabetes mellitus without complications; Z79.4 Long term (current) use of insulin; Z96.659 Presence of unspecified artificial knee joint; F17.200 Nicotine dependence, unspecified, uncomplicated
CPT/HCPCS: 93005; 85025 ×2; 80048 ×2; 36415; 80320; 82140; 83735; 80329 ×2; 81025; 85610; 82947; 80076; 80307 ×8; 84443; 81003; 84484; 83690; 83880; 70450; 71275; 74177; 71045; 82805; 51702; 96374; 99285; U0003; Q9967; J2270; J7030

== ENCOUNTER 2020-05-12 03:32 | Emergency (ER) | payer OTHER ==
--- OUTSIDE RECORDS SUMMARY | 2020-05-12 03:43 | XMS REPORT | Continuity of Care Document ---
:1960 Author Organization [facility] t Address [address] [place] [address] Care Team Providers Name Role Phone Shar [...] Department ID 2018-10-21 2018-10-21 Telephone TURNER Back [id number] [id number] 00:00:00 00:00:00 Natacha Nguyen [id number] Ade [id number] [facility] [phone] formerly [facility] [address] [facility] Results This patient has no known results.
[2020-05-12 04:03] LABS: Urine Blood NEGATIVE (NEG); Urine Glucose NEGATIVE (NEG); Urine Protein NEGATIVE (NEG)
[2020-05-12] MEDS ORDERED: MORPHINE 4 MG/ML SYR ONE (04:15)
[2020-05-12] MEDS ORDERED: ONDANSETRON 4 MG/2 ML VIAL ONE (04:15)
[2020-05-12] MEDS ORDERED: NA CHLORIDE 0.9% 500 ML ONE ×2 (04:15→05:36)
[2020-05-12 04:17] LABS: Basophils % 0.5 % (0-1.3); Hematocrit 40.2 % (36.0-45.0); Lymphocytes % 33.7 % (15.3-44.8); RBC Red Blood Cell Count 4.51 M/uL (3.86-4.86)
[2020-05-12 04:28] LABS: Barbiturates NEGATIVE (NEGATIVE); Benzodiazepines POSITIVE (NEGATIVE); Cocaine NEGATIVE (NEGATIVE); METHAMPHETAM POSITIVE (NEGATIVE); Methadone NEGATIVE (NEGATIVE); Opiates NEGATIVE (NEGATIVE); Phencyclidine NEGATIVE (NEGATIVE); THC Cannibis NEGATIVE (NEGATIVE)
[2020-05-12 04:35] LABS: ALT/SGPT 39 U/L (12-78); AST/SGOT 20 U/L (15-37); Alkaline Phosphatase 144 U/L (45-117); BUN Blood Urea Nitrogen 15 mg/dL (7-18); Bicarbonate 25 mmol/L (21-32); Bilirubin Direct < 0.1 mg/dL (0-0.2); Bilirubin Total 0.1 mg/dL (0.2-1.0); Glucose Level 135 mg/dL (74-106); Lipase 79 U/L (73-393); Potassium 4.2 mmol/L (3.5-5.1); Protein, Total 7.7 g/dL (6.4-8.2); Sodium Level 127 mmol/L (136-145)
--- NOTE | 2020-05-12 06:03 | EDPHYS ---
Physician Documentation [facility] Name: Jaimie Amanda Age: 59 yrs Sex: Female : 1960 Arrival Date: 05/12/2020 Time: 03:35 Bed 20 Private MD: ED Physician Gustavo Reed HPI: 05/12 03:52 This 59 yrs old Female presents to ER via Ambulatory with complaints of mh7 Abdominal Pain. 03:52 The patient presents with abdominal pain right lower quadrant. Onset: The mh7 symptoms/episode began/occurred yesterday. The symptoms do not radiate. Associated signs and symptoms: Pertinent positives: nausea and vomiting, Pertinent negatives: anorexia, blood in stools, chest pain, constipation, diarrhea, dysuria, fever, headache, hematuria, palpitations, shortness of breath, vaginal discharge, vomiting blood. The symptoms are described as intermittent, sharp, waxing/waning. Modifying factors: The symptoms are alleviated by nothing, the symptoms are aggravated by nothing. Severity of pain: At its worst the pain was moderate yesterday, in the emergency department the pain is unchanged. Historical: - Allergies: 03:47 Nitroglycerin; rv - PMHx: 03:47 Anxiety; Depression; Diabetes - NIDDM; etoh abuse; Hypertension; Hypothyroidism; rv Seizures; - PSHx: 03:47 Thyroidectomy; rv - Immunization history:: Adult Immunizations unknown. - Social history:: Smoking status: Patient reports the use of cigarette tobacco products, smokes one-half pack cigarettes per day. ROS: 03:52 Constitutional: Negative for fever, chills, and weight loss, Eyes: Negative for injury, mh7 pain, redness, and discharge, ENT: Negative for injury, pain, and discharge, Neck: Negative for injury, pain, and swelling, Cardiovascular: Negative for chest pain, palpitations, and edema, Respiratory: Negative for shortness of breath, cough, wheezing, and pleuritic chest pain, Back: Negative for injury and pain, : Negative for injury, bleeding, discharge, and swelling, MS/Extremity: Negative for injury and deformity, Skin: Negative for injury, rash, and discoloration, Neuro: Negative for headache, weakness, numbness, tingling, and seizure, Psych: Negative for depression, anxiety, suicide ideation, homicidal ideation, and hallucinations, Allergy/Immunology: Negative for hives, rash, and allergies, Endocrine: Negative for neck swelling, polydipsia, polyuria, polyphagia, and marked weight changes, Hematologic/Lymphatic: Negative for swollen nodes, abnormal bleeding, and unusual bruising. Exam: 03:52 Constitutional: This is a well developed, well nourished patient who is awake, alert, mh7 and in no acute distress. Head/Face: Normocephalic, atraumatic. Eyes: Pupils equal round and reactive to light, extra-ocular motions intact. Lids and lashes normal. Conjunctiva and sclera are non-icteric and not injected. Cornea within normal limits. Periorbital areas with no swelling, redness, or edema. Neck: Trachea midline, no thyromegaly or masses palpated, and no cervical lymphadenopathy. Supple, full range of motion without nuchal rigidity, or vertebral point tenderness. No Meningismus. Chest/axilla: Normal chest wall appearance and motion. Nontender with no deformity. No lesions are appreciated. Cardiovascular: Regular rate and rhythm with a normal S1 and S2. No gallops, murmurs, or rubs. Normal PMI, no JVD. No pulse deficits. Respiratory: Lungs have equal breath sounds bilaterally, clear to auscultation and percussion. No rales, rhonchi or wheezes noted. No increased work of breathing, no retractions or nasal flaring. 03:52 Back: No spinal tenderness. No costovertebral tenderness. Full range of motion. Skin: Warm, dry with normal turgor. Normal color with no rashes, no lesions, and no evidence of cellulitis. MS/ Extremity: Pulses equal, no cyanosis. Neurovascular intact. Full, normal range of motion. Neuro: Awake and alert, GCS 15, oriented to person, place, time, and situation. Cranial nerves II-XII grossly intact. Motor strength 5/5 in all extremities. Sensory grossly intact. Cerebellar exam normal. Normal gait. Psych: Awake, alert, with orientation to person, place and time. Behavior, mood, and affect are within normal limits. 03:52 Abdomen/GI: Inspection: obese Bowel sounds: normal, in all quadrants, Palpation: mild abdominal tenderness, in the right upper quadrant and right lower quadrant, Rectal exam: the exam is deferred, because of patient request, Indicators: McBurney's point is not tender, Marrero's sign is negative, Rovsing's sign is negative, Obturator sign is negative, Psoas sign is negative, Liver: no appreciated palpable abnormalities, Hernia: not appreciated. Vital Signs: 03:45 BP 179 / 90; Pulse 83; Resp 17; Temp 98.7; Pulse Ox 99% ; Weight 74.84 kg; Height 5 ft. rv 7 in. (170.18 cm); Pain 8/10; 04:09 BP 116 / 69; Pulse 71; Resp 15; Pulse Ox 95% ; rv 05:00 BP 143 / 62; Pulse 67; Resp 16; Temp 98.5; Pulse Ox 97% on R/A; rv 06:02 BP 138 / 66; Pulse 68; Resp 16; Pulse Ox 96% on R/A; rv 03:45 Body Mass Index 25.84 (74.84 kg, 170.18 cm) rv MDM: 06:00 Differential diagnosis: appendicitis, bowel obstruction, cholecystitis, Cholelithiasis, [facility] diverticulitis, gastroesophageal reflux disease, non-specific abd pain, pancreatitis, Peptic Ulcer Disease, Ureterolithiasis, urinary tract infection. Data reviewed: vital signs, nurses notes, old medical records, lab test result(s), CBC, electrolytes, urinalysis, urine drug screen, EKG, radiologic studies, CT scan. Data interpreted: Pulse oximetry: on room air is 97 %. Interpretation: normal. Counseling: I had a detailed discussion with the patient and/or guardian regarding: the historical points, exam findings, and any diagnostic results supporting the discharge/admit diagnosis, lab results, radiology results, the need for outpatient follow up, to return to the emergency department if symptoms worsen or persist or if there are any questions or concerns that arise at home. Response to treatment: the patient's symptoms have resolved after treatment, the patient's blood pressure is in an acceptable range, mental status has returned to baseline, the patient no longer shows bradycardia, the patient is not short of breath, the patient is not tachycardic, the patient's pain is gone, the patient's temperature has normalized. 06:02 Patient medically screened. [facility] 05/12 03:50 Order name: Basic Metabolic Panel [facility] 05/12 03:50 Order name: CBC with Diff [facility] 05/12 03:50 Order name: Hepatic Function [facility] 05/12 03:50 Order name: Lipase [facility] 05/12 03:50 Order name: UDS [facility] 05/12 03:51 Order name: Urine Dipstick--Ancillary (enter results) tt3 05/12 03:51 Order name: Urine --Ancillary (enter results) 3 05/12 04:04 Order name: Urine --Ancillary; Complete Time: 04:17 EDMS 05/12 04:04 Order name: Urine Dipstick-Ancillary; Complete Time: 04:17 EDMS 05/12 04:24 Order name: CBC with Automated Diff; Complete Time: 04:25 EDMS 05/12 04:28 Order name: Urine Drug Screen; Complete Time: 04:40 EDMS 05/12 04:36 Order name: Basic Metabolic Panel; Complete Time: 04:40 EDMS 05/12 04:36 Order name: Liver (Hepatic) Function; Complete Time: 04:40 EDMS 05/12 04:36 Order name: Lipase; Complete Time: 04:40 EDMS 05/12 03:50 Order name: Urine Test (obtain specimen); Complete Time: 03:50 3 05/12 03:50 Order name: Urine Dipstick-Ancillary (obtain specimen); Complete Time: 03:50 tt3 05/12 03:50 Order name: IV Saline Lock; Complete Time: 03:54 mh7 05/12 03:50 Order name: Labs collected and sent; Complete Time: 03:54 7 05/12 03:50 Order name: Urine Dipstick-Ancillary (obtain specimen); Complete Time: 03:54 7 05/12 03:50 Order name: EKG - Nurse/Tech; Complete Time: 04:07 7 05/12 03:51 Order name: CT Abd/Pelvis - IV Contrast Only [facility] Administered Medications: 04:09 Drug: morphine 4 mg {Note: rass 0.} Route: IVP; Site: right forearm; rv 05:26 Follow up: Response: No adverse reaction; Pain is decreased; RASS: Alert and Calm (0) rv 04:09 Drug: Zofran (Ondansetron) 4 mg Route: IVP; Site: right forearm; rv 05:26 Follow up: Response: No adverse reaction rv 04:09 Drug: NS 0.9% 500 ml Route: IV; Rate: bolus; Site: right forearm; rv 05:26 Follow up: IV Status: Completed infusion; IV Intake: 500ml rv 05:25 Drug: NS 0.9% 500 ml Route: IV; Rate: bolus; Site: right forearm; rv 06:03 Follow up: IV Status: Completed infusion; IV Intake: 500ml rv Disposition: 05/12/20 06:02 Discharged to Home. Impression: Generalized abdominal pain, Vomiting. - Condition is Stable. - Discharge Instructions: Nausea and Vomiting, Adult, [id number], Abdominal Pain, Adult, [id number]. - Prescriptions for Zofran ODT 4 mg Oral tablet,disintegrating - place 1 tablet by TRANSLINGUAL route every 8 hours As needed; 6 tablet. Bentyl 20 mg Oral Tablet - take 1 tablet by ORAL route every 6 hours As needed; 20 tablet. - Medication Reconciliation Form, Thank You Letter, Antibiotic Education, Prescription Opioid Use form. - Follow up: Private Physician; When: 1 - 2 days; Reason: Worsening of condition, Recheck today's complaints, Continuance of care, Re-evaluation by your physician. - Problem is new. - Symptoms have improved. Signatures: Dispatcher [employer] EDMS Jay Tsang RN RN rv Gustavo Reed MD MD mh7 Lefty, Yaron tt3 Corrections: (The following items were deleted from the chart) 06:06 06:02 05/12/2020 06:02 Discharged to Home. Impression: Generalized abdominal pain; rv Vomiting. Condition is Stable. Forms are Medication Reconciliation Form, Thank You Letter, Antibiotic Education, Prescription Opioid Use. Follow up: Private Physician; When: 1 - 2 days; Reason: Worsening of condition, Recheck today's complaints, Continuance of care, Re-evaluation by your physician. Problem is new. Symptoms have improved. mh7
--- NOTE | 2020-05-12 06:03 | ER ---
Nurse's Notes [facility] Name: Jaimie Amanda Age: 59 yrs Sex: Female : 1960 Arrival Date: 05/12/2020 Time: 03:35 Bed 20 Private MD: Diagnosis: Generalized abdominal pain;Vomiting Presentation: 05/12 03:45 Chief complaint: Patient states: RLQ STABBING PAIN 8/10, STARTED NOON TIME YESTERDAY. rv VOMITED ONCE, COULD NOT EAT AND DRINK. HURTING ALL DAY. TOOK CLONIDINE ONCE TO MANAGE BLOOD PRESSURE. DENIES DIARRHEA AND FEVER. Coronavirus screen: Client denies travel out of the [place] in the last 14 days. At this time, the client does not indicate any symptoms associated with coronavirus-19. Ebola Screen: No symptoms or risks identified at this time. Initial Sepsis Screen: Does the patient meet any 2 criteria? No. Patient's initial sepsis screen is negative. Does the patient have a suspected source of infection? No. Patient's initial sepsis screen is negative. Risk Assessment: Do you want to hurt yourself or someone else? Patient reports no desire to harm self or others. Onset of symptoms was May 11, 2020 at 12:00. 03:45 Method Of Arrival: Ambulatory rv 03:45 Acuity: ZHEN 3 rv Triage Assessment: 03:47 General: Appears uncomfortable, Behavior is cooperative, anxious. Pain: Complains of rv pain in right lower quadrant Pain does not radiate. Pain currently is 8 out of 10 on a pain scale. Quality of pain is described as stabbing, Pain began 1 day ago. EENT: No signs and/or symptoms were reported regarding the EENT system. Neuro: Level of Consciousness is awake, alert, obeys commands, Oriented to person, place, time, situation. Cardiovascular: Patient's skin is warm and dry. Respiratory: Airway is patent Respiratory effort is even, unlabored. GI: Abdomen is round non-distended, Bowel sounds present X 4 quads. Derm: Skin is intact. Historical: - Allergies: 03:47 Nitroglycerin; rv - PMHx: 03:47 Anxiety; Depression; Diabetes - NIDDM; etoh abuse; Hypertension; Hypothyroidism; rv Seizures; - PSHx: 03:47 Thyroidectomy; rv - Immunization history:: Adult Immunizations unknown. - Social history:: Smoking status: Patient reports the use of cigarette tobacco products, smokes one-half pack cigarettes per day. Screenin:55 Abuse screen: Denies threats or abuse. Denies injuries from another. Nutritional rv screening: No deficits noted. Tuberculosis screening: No symptoms or risk factors identified. Fall Risk None identified. Assessment: 03:55 GI: Abd is soft and non tender X 4 quads. rv Vital Signs: 03:45 BP 179 / 90; Pulse 83; Resp 17; Temp 98.7; Pulse Ox 99% ; Weight 74.84 kg; Height 5 ft. rv 7 in. (170.18 cm); Pain 8/10; 04:09 BP 116 / 69; Pulse 71; Resp 15; Pulse Ox 95% ; rv 05:00 BP 143 / 62; Pulse 67; Resp 16; Temp 98.5; Pulse Ox 97% on R/A; rv 06:02 BP 138 / 66; Pulse 68; Resp 16; Pulse Ox 96% on R/A; rv 03:45 Body Mass Index 25.84 (74.84 kg, 170.18 cm) rv ED Course: 03:35 Patient arrived in ED. am4 03:36 Gustavo Reed MD is Attending Physician. 7 03:45 Jay Tsang, RN is Primary Nurse. rv 03:47 Triage completed. rv 03:47 Arm band placed on right wrist. Patient placed in the treatment room, on a stretcher, rv Patient notified of wait time. 03:55 Patient has correct armband on for positive identification. Pulse ox on. NIBP on. rv 03:55 No provider procedures requiring assistance completed. rv 04:03 Inserted saline lock: 22 gauge in right forearm, using aseptic technique. Blood ds4 collected. Missed attempt(s): 20 gauge in right forearm. Bleeding controlled, band aid applied, catheter tip intact. 04:07 UDS Sent. ds4 06:06 IV discontinued, intact, bleeding controlled, No redness/swelling at site. Pressure rv dressing applied. 13:15 CT Abd/Pelvis - IV Contrast Only In Process Unspecified. EDMS Administered Medications: 04:09 Drug: morphine 4 mg {Note: rass 0.} Route: IVP; Site: right forearm; rv 05:26 Follow up: Response: No adverse reaction; Pain is decreased; RASS: Alert and Calm (0) rv 04:09 Drug: Zofran (Ondansetron) 4 mg Route: IVP; Site: right forearm; rv 05:26 Follow up: Response: No adverse reaction rv 04:09 Drug: NS 0.9% 500 ml Route: IV; Rate: bolus; Site: right forearm; rv 05:26 Follow up: IV Status: Completed infusion; IV Intake: 500ml rv 05:25 Drug: NS 0.9% 500 ml Route: IV; Rate: bolus; Site: right forearm; rv 06:03 Follow up: IV Status: Completed infusion; IV Intake: 500ml rv Intake: 05:26 IV: 500ml; Total: 500ml. rv 06:03 IV: 500ml; Total: 1000ml. rv Outcome: 06:02 Discharge ordered by MD. mohna 06:02 Discharged to home ambulatory. rv 06:02 Condition: improved 06:06 Discharge instructions given to patient, Instructed on discharge instructions, follow rv up and referral plans. medication usage, Demonstrated understanding of instructions, follow-up care, medications, Prescriptions given X 2. 06:06 Patient left the ED. rv Signatures: Dispatcher [employer] EDMS Aurelio Quick ds4 Jay Tsang RN RN rv Gustavo Reed MD MD 7 Cherelle Marley am4 Corrections: (The following items were deleted from the chart) 06:02 05:00 BP 138 / 66; Pulse 68bpm; Resp 16bpm; Pulse Ox 96% RA; rv rv
[2020-05-12 06:14] VITALS: TEMP 98.5
[2020-05-12 06:15] VITALS: BP 138/66; O2SAT 96
--- NOTE | 2020-05-12 22:09 | RAD REPORT ---
EXAM DESCRIPTION: CT - Abdomen Pelvis W Contrast - 05/12/2020 6:38 am CLINICAL HISTORY: Abd pain;Nausea / vomiting COMPARISON: 02/22/2020 TECHNIQUE: CT of the abdomen and pelvis performed following IV administration of iodinated contras t. This exam was performed according to our departmental dose-optimization program, which includes au tomated exposure control, adjustment of the mA and/or kV according to patient size and/or use of iter ative reconstruction technique. FINDINGS: Lung Bases: Minimal bibasilar dependent atelectasis. Bones: Endplate spondylosis of the spine. Disc height narrowing at L5/S1. Abdomen: Liver: The liver has normal size and density. No intrahepatic biliary dilatation. Small hepatic cysts . Gallbladder: No calcified gallstones. Spleen, Pancreas, and Adrenal Glands: The spleen, pancreas, and adrenal glands are unremarkable. Kidneys: No hydronephrosis or obstructing calculus. Vasculature: Aortoiliac atherosclerosis. IVC is unremarkable. The portal vein is patent. The proxim al visceral and renal arteries are patent. Stomach: Small hiatal hernia. Other: No free intraperitoneal air. No free fluid or lymphadenopathy. Pelvis: Bladder: Urinary bladder is unremarkable. Bowel: No dilated loops of large or small bowel. Large amount stool. Appendix: Normal appendix. Pelvis: Uterus is not enlarged. IMPRESSION: 1. No acute inflammatory or obstructive process identified. Electronically signed by: Sander Steiner 05/12/2020 5:49 AM MACHINE TOOL TECHNOLOGY INSTRUCTOR Due to temporary technical issues with the PACS/Fluency reporting system, reports are being signed by the in house radiologists without review as a courtesy to insure prompt reporting. The interpreting radiologist is fully responsible for the content of the report.
== END 2020-05-12 06:06 | disposition home or self-care (01) ==
LOC: ER 03:32
DX: R11.10 Vomiting, unspecified (principal); F17.210 Nicotine dependence, cigarettes, uncomplicated; I10 Essential (primary) hypertension; Z88.8 Allergy status to other drugs, medicaments and biological substances
CPT/HCPCS: 96361; 93005; 85025; 80048; 36415; 81025; 80076; 80307 ×8; 81003; 83690; 74177; 96375; 96374; 99284; Q9967; J7040 ×2; J2405

== ENCOUNTER 2020-05-17 08:11 | Inpatient (IN) | payer OTHER ==
--- OUTSIDE RECORDS SUMMARY | 2020-05-17 08:13 | XMS REPORT | Continuity of Care Document ---
:1960 Author Organization [facility] t Address [address] [place] [address] [address]. [address]. [address] [place] [address] Care Team Providers Name Role Phone Shar [...] Department ID 2018-10-21 2018-10-21 Telephone TURNER Back [id number] 00:00:00 00:00:00 Natacha Nguyen [id number] Ade [id number] [place] [phone] [facility] Results This patient has no known results.
[2020-05-17] MEDS ORDERED: MORPHINE 4 MG/ML SYR ONE (09:04)
[2020-05-17] MEDS ORDERED: FAMOTIDINE 20 MG/2 ML VIAL IV ONE (09:04)
[2020-05-17] MEDS ORDERED: ONDANSETRON 4 MG/2 ML VIAL ONE ×3 (09:04→15:58)
[2020-05-17] MEDS ORDERED: NA CHLORIDE 0.9% 1,000 ML ONE (09:04)
[2020-05-17 09:14] LABS: Absolute Lymphocytes (CBC) 2.3 K/uL (0.7-4.9); Basophils % 0.3 % (0-1.3); Hematocrit 39.2 % (36.0-45.0); Lymphocytes % 20.8 % (15.3-44.8); MPV 7.1 fL (7.6-11.3); RBC Red Blood Cell Count 4.48 M/uL (3.86-4.86)
[2020-05-17 09:15] LABS: Protime INR 0.97
--- NOTE | 2020-05-17 10:14 | RAD REPORT ---
EXAM DESCRIPTION: RAD - Abdomen Acute Series - 05/17/2020 9:48 am CLINICAL HISTORY: ABDOMINAL DISTENTION COMPARISON: Portable chest February 2020, abdomen August 2019 FINDINGS: No peripheral mass or consolidation. Prominent interstitial pattern matches the comparison . Diaphragmatic eventration also matches comparison. Heart size and pulmonary vasculature are normal. No pleural effusion, pneumothorax or other acute cardiopulmonary process seen. Large stool volume is seen filling the entirety of the colon. Air is seen within a few nondilated sma ll bowel loops. No free air, pneumatosis or other obstructive process. No suspicious calcifications. No other suspicious for significant findings. IMPRESSION: No acute chest finding. Chronic interstitial lung disease is present. Constipation pattern with a large amount of stool filling the colon. No obstruction or emergent findi ng seen.
--- NOTE | 2020-05-17 10:32 | RAD REPORT ---
EXAM DESCRIPTION: US - Abdomen Exam Limited - 05/17/2020 10:19 am CLINICAL HISTORY: ABD PAIN COMPARISON: CT study May 12 FINDINGS: Gallbladder size is normal. No gallstones, wall thickening or pericholecystic fluid. Commo n bile duct is normal with no common duct stone identified. Partially imaged liver shows no focal abnormality. IMPRESSION: No gallbladder or biliary tree abnormality identified.
[2020-05-17 10:43] LABS: ALT/SGPT 38 U/L (12-78); AST/SGOT 18 U/L (15-37); Alkaline Phosphatase 150 U/L (45-117); Bicarbonate 25 mmol/L (21-32); Bilirubin Direct < 0.1 mg/dL (0-0.2); Bilirubin Total 0.3 mg/dL (0.2-1.0); Glucose Level 160 mg/dL (74-106); Lipase 47 U/L (73-393); Magnesium 1.7 mg/dL (1.8-2.4); NT PRO-BNP 94 pg/mL (<125); Potassium 3.4 mmol/L (3.5-5.1); Protein, Total 7.5 g/dL (6.4-8.2); Troponin (Emerg Dept Use Only) < 0.02 ng/mL (0.0-0.045)
[2020-05-17 10:44] LABS: BUN Blood Urea Nitrogen 10 mg/dL (7-18)
[2020-05-17 10:45] LABS: Sodium Level 119 mmol/L (136-145)
--- NOTE | 2020-05-17 11:02 | ER ---
Nurse's Notes [facility] Name: Jaimie Amanda Age: 59 yrs Sex: Female : 1960 Arrival Date: 05/17/2020 Time: 08:12 Bed 2 Private MD: Diagnosis: Abdominal tenderness;Hypo-osmolality and hyponatremia;Hypomagnesemia;Hypokalemia;Type 2 diabetes mellitus Presentation: 05/17 08:24 Chief complaint: Patient states: right-sided abd pain, pt reports being seen here aa5 approximately 3 days ago. Pt states "I called Dr. Smith but could not get an appointment and the pain is worse now". Pt denies vomiting, reports nausea. 08:24 Coronavirus screen: At this time, the client does not indicate any symptoms associated aa5 with coronavirus-19. Ebola Screen: Patient negative for fever greater than or equal to 101.5 degrees Fahrenheit, and additional compatible Ebola Virus Disease symptoms. Initial Sepsis Screen: Does the patient meet any 2 criteria? No. Patient's initial sepsis screen is negative. Does the patient have a suspected source of infection? No. Patient's initial sepsis screen is negative. Risk Assessment: Do you want to hurt yourself or someone else? Patient reports no desire to harm self or others. Onset of symptoms was May 2020. 08:24 Acuity: ZHEN 3 aa5 08:24 Method Of Arrival: Ambulatory aa5 Historical: - Allergies: 08:25 Nitroglycerin; aa5 - Home Meds: 09:08 clonidine HCl 0.2 mg Oral tab [Active]; hydroxyzine HCl 50 mg Oral tab 1 tab BID PRN tw2 [Active]; levothyroxine 137 mcg tab 1 tab once daily [Active]; Linzess 290 mcg Oral cap 1 cap once daily [Active]; liothyronine 5 mcg Oral tab 1 tab once daily [Active]; losartan-hydrochlorothiazide 100-25 mg Oral tab 1 tab once daily [Active]; metformin 500 mg Oral tab 1 tab 2 times per day [Active]; naltrexone 50 mg Oral tab 1 tab once daily [Active]; omeprazole 40 mg Oral cpDR 1 cap once daily [Active]; oxcarbazepine 600 mg Oral tab 1 am and 2 pm [Active]; oxybutynin chloride 5 mg Oral tab 1 tab 2 times per day [Active]; paroxetine HCl 40 mg Oral tab 1 tab once daily [Active]; risperidone Oral [Active]; trazodone 100 mg Oral tab 1 tab nightly [Active]; - PMHx: 08:25 Anxiety; Depression; Diabetes - NIDDM; etoh abuse; Hypertension; Hypothyroidism; aa5 Seizures; - PSHx: 08:25 Thyroidectomy; aa5 - Immunization history:: Adult Immunizations unknown. - Family history:: not pertinent. - Social history:: Smoking status: unknown. Screenin:44 Abuse screen: Denies threats or abuse. Nutritional screening: No deficits noted. tw2 Tuberculosis screening: No symptoms or risk factors identified. Fall Risk None identified. Assessment: 08:53 General: Appears in no apparent distress. uncomfortable, Behavior is calm, cooperative, jd3 appropriate for age. Pain: Complains of pain in epigastric area and right upper quadrant Quality of pain is described as aching, tender. Neuro: Level of Consciousness is awake, alert, obeys commands, Oriented to person, place, time, situation. Cardiovascular: Denies chest pain, Capillary refill < 3 seconds Patient's skin is warm and dry. Respiratory: Airway is patent Respiratory effort is even, unlabored, Respiratory pattern is regular, symmetrical, Denies cough, shortness of breath. GI: Abdomen is round Bowel sounds present X 4 quads. Abd is soft X 4 quads Abdomen is tender to palpation in right upper quadrant Reports. : No signs and/or symptoms were reported regarding the genitourinary system. EENT: No signs and/or symptoms were reported regarding the EENT system. Derm: Skin is intact, Skin is dry, Skin is normal, Skin temperature is warm. Musculoskeletal: Circulation, motion, and sensation intact. Range of motion: intact in all extremities. 09:34 Reassessment: Patient appears in no apparent distress at this time. No changes from tw2 previously documented assessment. Patient and/or family updated on plan of care and expected duration. Pain level reassessed. Patient is alert, oriented x 3, equal unlabored respirations, skin warm/dry/pink. 10:20 Reassessment: Patient appears in no apparent distress at this time. Patient and/or jd3 family updated on plan of care and expected duration. Pain level reassessed. Patient is alert, oriented x 3, equal unlabored respirations, skin warm/dry/pink. 11:30 Reassessment: Patient appears in no apparent distress at this time. No changes from jd3 previously documented assessment. Patient and/or family updated on plan of care and expected duration. Pain level reassessed. Patient is alert, oriented x 3, equal unlabored respirations, skin warm/dry/pink. 12:25 Reassessment: Patient appears in no apparent distress at this time. No changes from jd3 previously documented assessment. Patient and/or family updated on plan of care and expected duration. Pain level reassessed. Patient is alert, oriented x 3, equal unlabored respirations, skin warm/dry/pink. 13:16 Reassessment: Patient appears in no apparent distress at this time. Patient and/or jd3 family updated on plan of care and expected duration. Pain level reassessed. Patient is alert, oriented x 3, equal unlabored respirations, skin warm/dry/pink. pt reporting anxiety, provider notified, medicated as ordered. 15:15 Reassessment: Patient appears in no apparent distress at this time. No changes from jd3 previously documented assessment. Patient and/or family updated on plan of care and expected duration. Pain level reassessed. Patient is alert, oriented x 3, equal unlabored respirations, skin warm/dry/pink. 16:19 Reassessment: Patient appears in no apparent distress at this time. No changes from jd3 previously documented assessment. Patient and/or family updated on plan of care and expected duration. Pain level reassessed. Patient is alert, oriented x 3, equal unlabored respirations, skin warm/dry/pink. 16:31 Reassessment: Patient and/or family updated on plan of care and expected duration. Pain jd3 level reassessed. Patient is alert, oriented x 3, equal unlabored respirations, skin warm/dry/pink. report given to Abundio BYRNE. Vital Signs: 08:24 BP 156 / 89; Pulse 90; Resp 16 S; Temp 98.2(O); Pulse Ox 96% on R/A; Weight 73.03 kg aa5 (R); Height 5 ft. 7 in. (170.18 cm) (R); 08:40 BP 134 / 74; Pulse 84; Resp 18; Pulse Ox 100% on R/A; tw2 13:17 BP 149 / 84; Pulse 67; Resp 17 S; Pulse Ox 98% on R/A; jd3 16:05 BP 152 / 90; Pulse 66; Resp 17 S; Pulse Ox 98% on R/A; jd3 08:24 Body Mass Index 25.22 (73.03 kg, 170.18 cm) [facility] ED Course: 08:12 Patient arrived in ED. am2 08:24 Arm band placed on Patient placed in an exam room, on a stretcher. aa5 08:24 Bed in low position. Call light in reach. Pulse ox on. NIBP on. tw2 08:25 Diego Ramirez MD is Attending Physician. hannah 08:32 Triage completed. aa5 08:50 Inserted saline lock: 20 gauge in right antecubital area, using aseptic technique. tw2 Blood collected. 08:53 Rene Lilly RN is Primary Nurse. jd3 10:57 Joseph Gustafson MD is Hospitalizing Provider. [facility] 11:00 Inserted saline lock: 20 gauge in left antecubital area, using aseptic technique. Blood tw2 collected. 11:56 Osmolality, Serum Sent. tw2 16:30 No provider procedures requiring assistance completed. Patient admitted, IV remains in jd3 place. Administered Medications: Discontinued: NS 0.9% 1000 ml IV at 1 bolus Per protocol; 1000 mL bolus Discontinued: NS 0.9% 1000 ml IV at 100 ml/hr continuous 08:55 Drug: NS 0.9% 1000 ml Route: IV; Rate: 1 bolus; Site: right antecubital; tw2 10:54 Follow up: Rate change 100 ml/hr tw2 08:55 Drug: Zofran (Ondansetron) 4 mg Route: IVP; Site: right antecubital; tw2 09:10 Follow up: Response: No adverse reaction; Nausea is decreased tw2 09:00 Drug: Pepcid 20 mg Route: IVP; Site: right antecubital; tw2 16:46 Follow up: Response: No adverse reaction tw2 09:00 Drug: morphine 4 mg {Note: RASS 0.} Route: IVP; Site: right antecubital; tw2 16:46 Follow up: Response: No adverse reaction; Pain is decreased tw2 10:46 Drug: Zofran (Ondansetron) 4 mg Route: IVP; Site: right antecubital; jd3 10:55 Follow up: Response: No adverse reaction; Nausea is decreased tw2 10:54 Drug: NS 0.9% 1000 ml Route: IV; Rate: 100 ml/hr; Site: right antecubital; tw2 10:55 Drug: foLIC Acid 1 mg Route: IVPB; Site: left antecubital; tw2 10:56 Follow up: Response: No adverse reaction; IV Status: Completed infusion; IV Intake: tw2 0.2ml 10:57 Drug: Thiamine 100 mg Route: IV; Rate: per protocol; Site: left antecubital; tw2 10:58 Follow up: Response: No adverse reaction; IV Intake: 1ml tw2 11:00 Drug: NS 0.9% with KCl 20 mEq/L 1000 ml Route: IV; Rate: 100 ml/hr; Site: right tw2 antecubital; 16:44 Follow up: IV Status: Infusion continued upon admission tw2 11:00 Drug: Potassium Chloride 20 mEq Route: IV; Rate: per protocol; Site: right antecubital; tw2 13:10 Follow up: Response: No adverse reaction; IV Status: Completed infusion; IV Intake: tw2 100ml 11:10 Drug: Magnesium Sulfate 2 grams Route: IVPB; Infused Over: 1 hrs; Site: left tw2 antecubital; 12:43 Follow up: Response: No adverse reaction; IV Status: Completed infusion; IV Intake: tw2 100ml 13:09 Drug: Ativan 1 mg Route: IVP; Site: right antecubital; jd3 14:00 Follow up: Response: No adverse reaction jd3 Intake: 10:56 IV: 0ml; Total: 0ml. tw2 10:58 IV: 1ml; Total: 1ml. tw2 12:43 IV: 100ml; Total: 101ml. tw2 13:10 IV: 100ml; Total: 201ml. tw2 Outcome: 11:01 Decision to Hospitalize by Provider. hannah 16:30 Admitted to Med/surg accompanied by tech, via wheelchair, with chart, Report called to faustina Del Castillo RN 16:30 Condition: stable 16:30 Instructed on the need for admit, Demonstrated understanding of instructions. 16:53 Patient left the ED. faustina Signatures: Diego Ramirez MD MD cha Calderon, Audri RN RN aa5 Maddy Prieto RN RN tw2 Elisa Gregory am2 Rene Lilly RN RN jd3 Corrections: (The following items were deleted from the chart) 08:34 08:24 Chief complaint: Patient states: right-sided abd pain, pt reports being seen here aa5 approximately 3 days ago. Pt states "I called Dr. Smith but could not get an appointment and the pain is worse now" aa5
--- NOTE | 2020-05-17 11:02 | EDPHYS ---
Physician Documentation [facility] Name: Jaimie Amanda Age: 59 yrs Sex: Female : 1960 Arrival Date: 05/17/2020 Time: 08:12 Bed 2 Private MD: [place] Physician Diego Ramirez HPI: 05/17 08:44 This 59 yrs old Female presents to ER via Ambulatory with complaints of hannah Abdominal Pain. 08:44 The patient presents with abdominal pain in the upper abdomen, in the lower abdomen, hannah abdominal distention in the upper abdomen, in the lower abdomen. Onset: The symptoms/episode began/occurred 5 day(s) ago. The symptoms do not radiate. Associated signs and symptoms: none. Modifying factors: The symptoms are alleviated by nothing, the symptoms are aggravated by nothing. Severity of pain: At its worst the pain was mild in the emergency department the pain is unchanged. The patient has not experienced similar symptoms in the past. Historical: - Allergies: 08:25 Nitroglycerin; aa5 - Home Meds: 09:08 clonidine HCl 0.2 mg Oral tab [Active]; hydroxyzine HCl 50 mg Oral tab 1 tab BID PRN tw2 [Active]; levothyroxine 137 mcg tab 1 tab once daily [Active]; Linzess 290 mcg Oral cap 1 cap once daily [Active]; liothyronine 5 mcg Oral tab 1 tab once daily [Active]; losartan-hydrochlorothiazide 100-25 mg Oral tab 1 tab once daily [Active]; metformin 500 mg Oral tab 1 tab 2 times per day [Active]; naltrexone 50 mg Oral tab 1 tab once daily [Active]; omeprazole 40 mg Oral cpDR 1 cap once daily [Active]; oxcarbazepine 600 mg Oral tab 1 am and 2 pm [Active]; oxybutynin chloride 5 mg Oral tab 1 tab 2 times per day [Active]; paroxetine HCl 40 mg Oral tab 1 tab once daily [Active]; risperidone Oral [Active]; trazodone 100 mg Oral tab 1 tab nightly [Active]; - PMHx: 08:25 Anxiety; Depression; Diabetes - NIDDM; etoh abuse; Hypertension; Hypothyroidism; aa5 Seizures; - PSHx: 08:25 Thyroidectomy; aa5 - Immunization history:: Adult Immunizations unknown. - Family history:: not pertinent. - Social history:: Smoking status: unknown. ROS: 08:44 Constitutional: Negative for fever, chills, and weight loss, Eyes: Negative for injury, hannah pain, redness, and discharge, ENT: Negative for injury, pain, and discharge, Neck: Negative for injury, pain, and swelling, Cardiovascular: Negative for chest pain, palpitations, and edema, Respiratory: Negative for shortness of breath, cough, wheezing, and pleuritic chest pain, Back: Negative for injury and pain, : Negative for injury, bleeding, discharge, and swelling, MS/Extremity: Negative for injury and deformity, Skin: Negative for injury, rash, and discoloration, Neuro: Negative for headache, weakness, numbness, tingling, and seizure, Psych: Negative for depression, anxiety, suicide ideation, homicidal ideation, and hallucinations, Allergy/Immunology: Negative for hives, rash, and allergies, Endocrine: Negative for neck swelling, polydipsia, polyuria, polyphagia, and marked weight changes, Hematologic/Lymphatic: Negative for swollen nodes, abnormal bleeding, and unusual bruising. 08:44 Abdomen/GI: Positive for abdominal pain, of the epigastric area, right upper quadrant and left upper quadrant. Exam: 08:44 Constitutional: This is a well developed, well nourished patient who is awake, alert, hannah and in no acute distress. Head/Face: Normocephalic, atraumatic. Eyes: Pupils equal round and reactive to light, extra-ocular motions intact. Lids and lashes normal. Conjunctiva and sclera are non-icteric and not injected. Cornea within normal limits. Periorbital areas with no swelling, redness, or edema. ENT: Nares patent. No nasal discharge, no septal abnormalities noted. Tympanic membranes are normal and external auditory canals are clear. Oropharynx with no redness, swelling, or masses, exudates, or evidence of obstruction, uvula midline. Mucous membranes moist. Neck: Trachea midline, no thyromegaly or masses palpated, and no cervical lymphadenopathy. Supple, full range of motion without nuchal rigidity, or vertebral point tenderness. No Meningismus. Chest/axilla: Normal chest wall appearance and motion. Nontender with no deformity. No lesions are appreciated. Cardiovascular: Regular rate and rhythm with a normal S1 and S2. No gallops, murmurs, or rubs. Normal PMI, no JVD. No pulse deficits. Respiratory: Lungs have equal breath sounds bilaterally, clear to auscultation and percussion. No rales, rhonchi or wheezes noted. No increased work of breathing, no retractions or nasal flaring. Back: No spinal tenderness. No costovertebral tenderness. Full range of motion. Skin: Warm, dry with normal turgor. Normal color with no rashes, no lesions, and no evidence of cellulitis. MS/ Extremity: Pulses equal, no cyanosis. Neurovascular intact. Full, normal range of motion. Neuro: Awake and alert, GCS 15, oriented to person, place, time, and situation. Cranial nerves II-XII grossly intact. Motor strength 5/5 in all extremities. Sensory grossly intact. Cerebellar exam normal. Normal gait. Psych: Awake, alert, with orientation to person, place and time. Behavior, mood, and affect are within normal limits. 08:44 Abdomen/GI: Inspection: distension, Bowel sounds: normal, Palpation: mild abdominal tenderness, in all quadrants, Liver: no appreciated palpable abnormalities, Hernia: not appreciated. 09:58 ECG was reviewed by the Attending Physician. hannah Vital Signs: 08:24 BP 156 / 89; Pulse 90; Resp 16 S; Temp 98.2(O); Pulse Ox 96% on R/A; Weight 73.03 kg aa5 (R); Height 5 ft. 7 in. (170.18 cm) (R); 08:40 BP 134 / 74; Pulse 84; Resp 18; Pulse Ox 100% on R/A; tw2 13:17 BP 149 / 84; Pulse 67; Resp 17 S; Pulse Ox 98% on R/A; jd3 16:05 BP 152 / 90; Pulse 66; Resp 17 S; Pulse Ox 98% on R/A; jd3 08:24 Body Mass Index 25.22 (73.03 kg, 170.18 cm) aa5 MDM: 08:27 Patient medically screened. hannah 08:52 Differential diagnosis: cholecystitis, Cholelithiasis, gastritis, myocardia ischemia or hannah infarction, non-specific abd pain, pancreatitis, Peptic Ulcer Disease, Pyelonephritis, urinary tract infection. Data reviewed: vital signs, nurses notes, lab test result(s), EKG, radiologic studies. Data interpreted: manager monitoring: rate is 90 beats/min, rhythm is regular, Pulse oximetry: is not applicable for this patient encounter. Test interpretation: by ED physician or midlevel provider: ECG, plain radiologic studies. Counseling: I had a detailed discussion with the patient and/or guardian regarding: the historical points, exam findings, and any diagnostic results supporting the discharge/admit diagnosis. 05/17 08:43 Order name: Basic Metabolic Panel [facility] 05/17 08:43 Order name: CBC with Diff [facility] 05/17 08:43 Order name: LFT's [facility] 05/17 08:43 Order name: Magnesium [facility] 05/17 08:43 Order name: NT PRO-BNP [facility] 05/17 08:43 Order name: PT-INR [facility] 05/17 08:43 Order name: Troponin (emerg Dept Use Only) [facility] 05/17 08:43 Order name: Lipase [facility] 05/17 09:17 Order name: Protime (+INR); Complete Time: 09:54 [facility] 05/17 09:19 Order name: CBC with Automated Diff; Complete Time: 09:54 [facility] 05/17 10:45 Order name: Basic Metabolic Panel; Complete Time: 10:54 ED[facility] 05/17 10:45 Order name: Liver (Hepatic) Function; Complete Time: 10:54 EDMS 05/17 10:45 Order name: Troponin (Emerg Dept Use Only); Complete Time: 10:54 EDMS 05/17 10:45 Order name: NT PRO-BNP; Complete Time: 10:54 EDMS 05/17 08:43 Order name: Abdomen Acute Series XRAY [facility] 05/17 08:43 Order name: US Abdomen Limited [facility] 05/17 10:14 Order name: RAD; Complete Time: 10:28 EDMS 05/17 10:45 Order name: Magnesium; Complete Time: 10:54 EDMS 05/17 10:45 Order name: Lipase; Complete Time: 10:54 [facility] 05/17 10:54 Order name: Urine Osmolality [facility] 05/17 10:54 Order name: Urine Sodium Random [facility] 05/17 10:54 Order name: Osmolality, Serum [facility] 05/17 11:38 Order name: Urine Dipstick--Ancillary (enter results) 05/17 11:44 Order name: Urine Dipstick-Ancillary [facility] 05/17 11:54 Order name: UR SODIUM [facility] 05/17 12:29 Order name: COVID-19 : Document "Date of Symptom Onset" if Symptomatic. eb 05/17 13:15 Order name: Osmolality, Serum [facility] 05/17 13:16 Order name: Osmolality, Urine [facility] 05/17 13:26 Order name: CORONAVIRUS [facility] 05/17 14:15 Order name: SARS-COV-2 RT PCR [facility] 05/17 08:43 Order name: EKG; Complete Time: 08:44 [facility] 05/17 08:43 Order name: Cardiac monitoring; Complete Time: 09:05 [facility] 05/17 08:43 Order name: EKG - Nurse/Tech; Complete Time: 09:05 [facility] 05/17 08:43 Order name: IV Saline Lock; Complete Time: 09:05 [facility] 05/17 08:43 Order name: Labs collected and sent; Complete Time: 09:05 [facility] 05/17 08:43 Order name: O2 Per Protocol; Complete Time: 08:53 [facility] 05/17 08:43 Order name: O2 Sat Monitoring; Complete Time: 08:53 [facility] 05/17 08:43 Order name: Urine Dipstick-Ancillary (obtain specimen); Complete Time: 12:43 [facility] 05/17 10:32 Order name: US; Complete Time: 10:54 [facility] 05/17 10:54 Order name: Seizure Precautions; Complete Time: 11:55 [facility] EC:58 Rate is 78 beats/min. Rhythm is regular. QRS [place] is Normal. ND interval is normal. QRS hannah interval is normal. QT interval is normal. No Q waves. T waves are Normal. No ST changes noted. Clinical impression: NSR w/ Non-specific ST/T Changes and No evidence of ischemia. Interpreted by me. Reviewed by me. Administered Medications: Discontinued: NS 0.9% 1000 ml IV at 1 bolus Per protocol; 1000 mL bolus Discontinued: NS 0.9% 1000 ml IV at 100 ml/hr continuous 08:55 Drug: NS 0.9% 1000 ml Route: IV; Rate: 1 bolus; Site: right antecubital; tw2 10:54 Follow up: Rate change 100 ml/hr tw2 08:55 Drug: Zofran (Ondansetron) 4 mg Route: IVP; Site: right antecubital; tw2 09:10 Follow up: Response: No adverse reaction; Nausea is decreased tw2 09:00 Drug: Pepcid 20 mg Route: IVP; Site: right antecubital; tw2 16:46 Follow up: Response: No adverse reaction tw2 09:00 Drug: morphine 4 mg {Note: RASS 0.} Route: IVP; Site: right antecubital; tw2 16:46 Follow up: Response: No adverse reaction; Pain is decreased tw2 10:46 Drug: Zofran (Ondansetron) 4 mg Route: IVP; Site: right antecubital; jd3 10:55 Follow up: Response: No adverse reaction; Nausea is decreased tw2 10:54 Drug: NS 0.9% 1000 ml Route: IV; Rate: 100 ml/hr; Site: right antecubital; tw2 10:55 Drug: foLIC Acid 1 mg Route: IVPB; Site: left antecubital; tw2 10:56 Follow up: Response: No adverse reaction; IV Status: Completed infusion; IV Intake: tw2 0.2ml 10:57 Drug: Thiamine 100 mg Route: IV; Rate: per protocol; Site: left antecubital; tw2 10:58 Follow up: Response: No adverse reaction; IV Intake: 1ml tw2 11:00 Drug: NS 0.9% with KCl 20 mEq/L 1000 ml Route: IV; Rate: 100 ml/hr; Site: right tw2 antecubital; 16:44 Follow up: IV Status: Infusion continued upon admission tw2 11:00 Drug: Potassium Chloride 20 mEq Route: IV; Rate: per protocol; Site: right antecubital; tw2 13:10 Follow up: Response: No adverse reaction; IV Status: Completed infusion; IV Intake: tw2 100ml 11:10 Drug: Magnesium Sulfate 2 grams Route: IVPB; Infused Over: 1 hrs; Site: left tw2 antecubital; 12:43 Follow up: Response: No adverse reaction; IV Status: Completed infusion; IV Intake: tw2 100ml 13:09 Drug: Ativan 1 mg Route: IVP; Site: right antecubital; jd3 14:00 Follow up: Response: No adverse reaction jd3 Disposition: 05/17/20 11:01 Hospitalization ordered by Joseph Gustafson for Inpatient Admission. Preliminary diagnosis are Abdominal tenderness, Hypo-osmolality and hyponatremia, Hypomagnesemia, Hypokalemia, Type 2 diabetes mellitus. - [facility] - Status is Inpatient Admission. jd3 - Condition is Fair. - Problem is new. - Symptoms are unchanged. Signatures: Dispatcher [employer] EDDiego Angela MD MD cha Calderon, Audri, RN RN aa5 Maddy Prieto RN RN tw2 Rene Lilly RN RN jd3 Nikkie Merrill Corrections: (The following items were deleted from the chart) 15:38 11:01 Hospitalization Ordered by Joseph Gustafson MD for Inpatient Admission. Preliminary eb diagnosis is Abdominal tenderness; Hypo-osmolality and hyponatremia; Hypomagnesemia; Hypokalemia; Type 2 diabetes mellitus. Bed requested for Telemetry/MedSurg (Inpatient). Status is Inpatient Admission. Condition is Fair. Problem is new. Symptoms are unchanged. hannah 16:53 15:38 05/17/2020 11:01 Hospitalization Ordered by Joseph Gustafson MD for Inpatient jd3 Admission. Preliminary diagnosis is Abdominal tenderness; Hypo-osmolality and hyponatremia; Hypomagnesemia; Hypokalemia; Type 2 diabetes mellitus. Bed requested for Telemetry/MedSurg (Inpatient). Status is Inpatient Admission. Condition is Fair. Problem is new. Symptoms are unchanged. eb
[2020-05-17] MEDS ORDERED: THIAMINE 200 MG/2 ML INJ ONE (11:19)
[2020-05-17] MEDS ORDERED: NS KCL 20MEQ 1,000 ML IV ONE (11:20)
[2020-05-17] MEDS ORDERED: FOLIC ACID 5 MG/ML VIAL ONE (11:20)
[2020-05-17] MEDS ORDERED: KCL 20 MEQ/100 mL IVPB 20 MEQ/100 ML BAG IV ONE (11:21)
[2020-05-17] MEDS ORDERED: Magnesium Sulfate 2gm IVPB 2 G/50 ML BAG IV ONE (11:21)
[2020-05-17 11:44] LABS: Urine Blood NEGATIVE (NEG); Urine Glucose NEGATIVE (NEG); Urine Protein NEGATIVE (NEG)
[2020-05-17] MEDS ORDERED: ACETAMINOPHEN 500 MG TAB PO PRN (12:15)
[2020-05-17] MEDS: NA CHLORIDE 0.9% 1,000 ML IV SCH ×3 (13:00→22:59)
[2020-05-17] MEDS ORDERED: LORazepam 2 MG/ML VIAL ONE (13:20)
[2020-05-17] MEDS: ONDANSETRON 4 MG/2 ML VIAL IV PRN ×2 (15:44→20:33)
[2020-05-17] MEDS: MORPHINE 2 MG/ML SYR IV PRN (15:46)
[2020-05-17] MEDS ORDERED: MORPHINE 2 MG/ML SYR ONE (15:58)
[2020-05-17] MEDS: LACTULOSE 20 GM/30 ML UCUP PO SCH ×4 (17:00→21:00)
[2020-05-17 17:06] VITALS: O2SAT 98
[2020-05-17] MEDS ORDERED: HYDRALAZINE HCL 20 MG/ML VIAL IV PRN (18:07)
[2020-05-17 18:24] VITALS: BMI 25.2
[2020-05-17] MEDS ORDERED: ZOLPIDEM TARTRATE 10 MG TABLET PO PRN (20:38)
[2020-05-18] MEDS: LACTULOSE 20 GM/30 ML UCUP PO SCH (00:28)
[2020-05-18] MEDS: MORPHINE 2 MG/ML SYR IV PRN (03:22)
[2020-05-18 06:13] LABS: Urine Appearance CLEAR; Urine Bilirubin NEGATIVE (NEG); Urine Blood NEGATIVE (NEG); Urine Color YELLOW; Urine Glucose NEGATIVE (NEG); Urine Protein NEGATIVE (NEG); Urine Specific Gravity <=1.005 (1.005-1.030); Urine Urobilinogen 0.2 mg/dL (0.2-1.0); Urine pH 6.5 (5.0-7.0)
[2020-05-18 06:14] LABS: Urine Microscopic Reflex NO UMIC
[2020-05-18 06:20] LABS: Absolute Lymphocytes (CBC) 2.1 K/uL (0.7-4.9); Basophils % 0.2 % (0-1.3); Hematocrit 39.6 % (36.0-45.0); Lymphocytes % 21.4 % (15.3-44.8); RBC Red Blood Cell Count 4.42 M/uL (3.86-4.86)
[2020-05-18 06:42] LABS: ALT/SGPT 35 U/L (12-78); AST/SGOT 16 U/L (15-37); Albumin 3.9 g/dL (3.4-5.0); Alkaline Phosphatase 138 U/L (45-117); BUN Blood Urea Nitrogen 6 mg/dL (7-18); Bicarbonate 22 mmol/L (21-32); Bilirubin Total 0.3 mg/dL (0.2-1.0); Glucose Level 160 mg/dL (74-106); Magnesium 2.1 mg/dL (1.8-2.4); Potassium 4.2 mmol/L (3.5-5.1); Protein, Total 7.2 g/dL (6.4-8.2); Sodium Level 128 mmol/L (136-145)
--- NOTE | 2020-05-18 06:52 | EKG ---
Test Date: 2020-05-17 Test Time: 08:57:20 [employer] Rental Clerk: MYA MEASUREMENT RESULTS: Intervals: Rate: 78 [place]: 178 QRSD: 92 QT: 394 QTc: 449 [place]: P: 51 [place]: 178 QRS: 61 T: 71 INTERPRETIVE STATEMENTS: Normal sinus rhythm Possible Left atrial enlargement Borderline ECG Compared to ECG 05/12/2020 04:03:28 No significant changes Electronically Signed On 05-18-20 06:49:19 [employer]OTH PRINTER HELPER by Daniel Cespedes
[2020-05-18] MEDS ORDERED: LORazepam 2 MG/ML VIAL IV ONE (07:38)
[2020-05-18] MEDS ORDERED: clonazePAM 0.5 MG TAB PO PRN (07:39)
[2020-05-18] MEDS ORDERED: BACLOFEN 10 MG TAB PO PRN (07:39)
[2020-05-18] MEDS ORDERED: INFLUENZA VACCINE (for 3y+) 0.5 ML DOSE IMVAC ONE (08:00)
[2020-05-18] MEDS ORDERED: PNEUMOCOCCAL VACCINE 0.5 ML IMVAC ONE (08:00)
[2020-05-18] MEDS: ONDANSETRON 4 MG/2 ML VIAL IV PRN (08:29)
[2020-05-18] MEDS ORDERED: RISPERIDONE 1 MG TABLET PO SCH (09:00)
[2020-05-18] MEDS ORDERED: OXcarbazepine 150 MG TAB PO SCH ×2 (09:00→21:00)
[2020-05-18] MEDS ORDERED: cloNIDine HCL 0.1 MG TAB PO SCH (09:00)
[2020-05-18] MEDS: NA CHLORIDE 0.9% 1,000 ML IV SCH (10:09)
[2020-05-18 14:06] LABS: Potassium 4.9 mmol/L (3.5-5.1)
[2020-05-18 14:32] VITALS: BP 158/81; TEMP 97.9
[2020-05-19] MEDS ORDERED: LEVOTHYROXINE SOD 0.125 MG TAB PO SCH (06:30)
--- NOTE | 2020-05-19 08:18 | P.HP ---
Certification for Inpatient Patient admitted to: Inpatient With expected LOS: >2 Midnights Patient will require the following post-hospital care: None Practitioner: I am a practitioner with admitting privileges, knowledge of patient current condition, hospital course, and medical plan of care. Services: Services provided to patient in accordance with Admission requirements found in Title 42 Section 412.3 of the Code of Federal Regulations Patient History Date of Service: 05/17/20 Reason for admission: Severe hyponatremia with altered mental status History of Present Illness: Patient is a 59-year-old female who came into the hospital with altered mentation. Patient was found have severe hyponatremia. Patient also had imaging studies which revealed severe fecal impaction. Patient was started on saline in the plan was to correct the saline by roughly 12 mEq/daily. Patient is on losartan hydrochlorothiazide. This is the most likely cause of the severe hyponatremia. Patient denies drinking a lot of water. Patient will be admitted to the hospital for further evaluation. This will probably take a couple of days to correct his sodium level. An as long the sodium level is stable we should be able to discharge in 48-72 hr Allergies nitroglycerin Adverse Reaction (Verified 07/05/18 06:27) severe hypotension Home Medications: Baclofen [Lioresal*] 10 mg PO TIDP PRN 02/23/20 Clonidine HCl [Catapres*] 0.2 mg PO BID 02/23/20 Dicyclomine [Bentyl*] 10 mg PO Q6HP PRN 02/23/20 Levothyroxine Sodium [Levothyroxine] 125 mcg PO [id number] 02/23/20 Liothyronine Sodium [Cytomel] 5 mcg PO [id number] 02/23/20 Metformin ER [Glucophage ER*] 1 tab PO BID 02/23/20 OXcarbazepine [Oxcarbazepine] 1,200 mg PO BEDTIME 02/23/20 OXcarbazepine [Oxcarbazepine] 600 mg PO DAILY 02/23/20 Omeprazole [Prilosec] 40 mg PO DAILY 02/23/20 Ondansetron HCl [Zofran] 1 tab PO Q8H PRN 02/23/20 Risperidone [Risperdal] 1 tab PO BID 02/23/20 clonazePAM [Klonopin*] 0.5 mg PO TID PRN #30 tab 05/18/20 - Past Medical/Surgical History Diabetic: No -: Hepatitis -: Anxiety -: HTN -: Hypothyroidism -: Alcoholic induced seizures -: Thyroidectomy -: Plastic surgery breast -: hernia repair - Family History Mother Medical History: Hypertension, Diabetes, Cancer Notes: Thyroid, Knee replacement Father Medical History: Heart disease, Hypertension, Diabetes - Social History Smoking Status: Current some day smoker Alcohol use: Yes CD- Drugs: No Place of Residence: Home Review of Systems 10-point ROS is otherwise unremarkable Physical Examination - Vital Signs Temperature: 97.9 F Blood Pressure: 158/81 Pulse: 103 Respirations: 16 Pulse Ox (%): 96 - Physical Exam General: Alert, In no apparent distress, Confused HEENT: Atraumatic, PERRLA, Mucous membr. moist/pink, EOMI, Sclerae nonicteric Neck: Supple, 2+ carotid pulse no bruit, No LAD, Without JVD or thyroid abnormality Respiratory: Clear to auscultation bilaterally, Normal air movement Cardiovascular: Regular rate/rhythm, Normal S1 S2, No murmurs Gastrointestinal: Normal bowel sounds, Soft and benign, Non-distended, No tenderness Musculoskeletal: No clubbing, No swelling, No tenderness Integumentary: No rashes Neurological: Normal gait, Normal speech, Normal strength at 5/5 x4 extr, Normal tone, Sensation intact, Cranial nerves 3-12 intact, Normal affect Lymphatics: No axilla or inguinal lymphadenopathy Assessment & Plan - Problems (Diagnosis) (1) Hyponatremia Status: Acute (2) History of bipolar disorder Status: Acute (3) Seizure Status: Acute (4) Depressed affect Onset Date: 11/21/16 Status: Chronic (5) Diabetes Status: Chronic Qualifiers: Diabetes mellitus type: type 2 Diabetes mellitus penitentiary insulin use: with penitentiary use Diabetes mellitus complication status: without complication Qualified Code(s): E11.9 - Type 2 diabetes mellitus without complications; 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 Saline and repeat sodium 2. Monitor thyroid studies 3. Lactulose Q 6 hr 4. Dc losartan hydrochlorothiazide 5. Strict blood sugar and blood pressure control 6. GI and DVT prophylaxis - Advance Directives Does patient have a Living Will: No Does patient have a Durable POA for Healthcare: No
--- NOTE | 2020-05-19 08:27 | P.DS ---
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 Patient was found have severe hyponatremia. Patient also had imaging studies which revealed severe fecal impaction. Patient was started on saline in the plan was to correct the saline by roughly 12 mEq/daily. Patient is on losartan hydrochlorothiazide. This is the most likely cause of the severe hyponatremia. Patient denies drinking a lot of water. Patient will be admitted to the hospital for further evaluation. This will probably take a couple of days to correct his sodium level. An as long the sodium level is stable we should be able to discharge in 48-72 hr Hospital Course: Patient's sodium is correcting inpatient had multiple large bowel movements and feels so much better. She does not want stay in the hospital any longer. She is fairly adamant about leaving. At this time her sodium is almost corrected in because she is adamant about leaving I will go ahead and discharge her and hold her hydrochlorothiazide going forward. She needs to get labs repeated in 1 week. Needs to increase her fluid intake and fiber intake. She may need to take a stool softener with her meals daily. Vital Signs/Physical Exam: Temp Pulse Resp BP Pulse Ox 97.9 F 103 H 16 158/81 H 96 05/19/20 08:21 05/19/20 08:21 05/19/20 08:21 05/19/20 08:21 05/19/20 08:21 General: Alert, In no apparent distress, Oriented x3 Laboratory Data at Discharge: WBC 9.90 K/uL (4.3-10.9) 05/18/20 06:01 Hgb 13.7 g/dL (12.0-15.0) 05/18/20 06:01 Hct 39.6 % (36.0-45.0) 05/18/20 06:01 Plt Count 359 K/uL (152-406) 05/18/20 06:01 PT 11.2 SECONDS (9.5-12.5) 05/17/20 08:50 INR 0.97 05/17/20 08:50 Sodium 134 mmol/L (136-145) L 05/18/20 13:15 Potassium 4.9 mmol/L (3.5-5.1) 05/18/20 13:15 BUN 11 mg/dL (7-18) 05/18/20 13:15 Creatinine 0.84 mg/dL (0.55-1.3) 05/18/20 13:15 Glucose 202 mg/dL (74-106) H 05/18/20 13:15 Magnesium 2.1 mg/dL (1.8-2.4) 05/18/20 06:01 Total Bilirubin 0.3 mg/dL (0.2-1.0) 05/18/20 06:01 AST 16 U/L (15-37) 05/18/20 06:01 ALT 35 U/L (12-78) 05/18/20 06:01 Alkaline Phosphatase 138 U/L (45-117) H 05/18/20 06:01 Lipase 47 U/L (73-393) L 05/17/20 08:50 Home Medications: Baclofen [Lioresal*] 10 mg PO TIDP PRN 02/23/20 Clonidine HCl [Catapres*] 0.2 mg PO BID 02/23/20 Dicyclomine [Bentyl*] 10 mg PO Q6HP PRN 02/23/20 Levothyroxine Sodium [Levothyroxine] 125 mcg PO [id number] 02/23/20 Liothyronine Sodium [Cytomel] 5 mcg PO [id number] 02/23/20 Metformin ER [Glucophage ER*] 1 tab PO BID 02/23/20 OXcarbazepine [Oxcarbazepine] 1,200 mg PO BEDTIME 02/23/20 OXcarbazepine [Oxcarbazepine] 600 mg PO DAILY 02/23/20 Omeprazole [Prilosec] 40 mg PO DAILY 02/23/20 Ondansetron HCl [Zofran] 1 tab PO Q8H PRN 02/23/20 Risperidone [Risperdal] 1 tab PO BID 02/23/20 clonazePAM [Klonopin*] 0.5 mg PO TID PRN #30 tab 05/18/20 New Medications: clonazePAM [Klonopin*] 0.5 mg PO TID PRN #30 tab PRN Reason: Anxiety Physician Discharge Instructions: OK TO DC IV AND DC HOME FOLLOW-UP WITH PRIMARY CARE PROVIDER IN 1-2 WEEKS RETURN TO THE ER IF symptoms worsened CALL or TEXT DR. CUELLAR AT [phone] IF ANY QUESTIONS REGARDING HOSPITAL STAY. PLEASE CALL THE FLOOR AT [phone] IF ANY MEDICATION OR NURSING QUESTIONS. Diet: Regular Activity: Fall precautions Followup: NEERAJ SOL CENTR [Primary Care Provider] - Time spent managing pt's care (in minutes): 35
== END 2020-05-18 14:37 | disposition home or self-care (01) | DRG 641 ==
LOC: ER 08:11 → ERHOLD 12:16 → 2ND 16:50
PROVIDERS: ADMIT Hospitalist; ATTEND Hospitalist
DX: E87.1 Hypo-osmolality and hyponatremia (principal); E03.9 Hypothyroidism, unspecified; E11.9 Type 2 diabetes mellitus without complications; K56.41 Fecal impaction; F17.200 Nicotine dependence, unspecified, uncomplicated; I10 Essential (primary) hypertension; R56.9 Unspecified convulsions; Z88.8 Allergy status to other drugs, medicaments and biological substances; Z79.890 Hormone replacement therapy; Z79.4 Long term (current) use of insulin; Z79.899 Other long term (current) drug therapy; Z20.822 Contact with and (suspected) exposure to COVID-19
CPT/HCPCS: 36415; 74022; 76705; 80048; 80053; 80076; 81003; 83690; 83735; 83880; 83930; 83935; 84300; 84484; 85025; 85610; 93005; 99285; J0360; J2270; J2405; J3411; J3475; J3480; J7030; U0003

== ENCOUNTER 2020-06-12 06:17 | Emergency (ER) | payer OTHER ==
--- OUTSIDE RECORDS SUMMARY | 2020-06-12 06:19 | XMS REPORT | Continuity of Care Document ---
:1960 Author Organization [facility] t Address [address] [place] [address] Dr. Huang. [address] [place] [address] Care Team Providers Name Role Phone Shar [...] Department ID 2018-10-21 2018-10-21 Telephone TURNER Back [phone] [id number] 00:00:00 00:00:00 Natacha Nguyen [id number] Ade [id number] [phone] 204 [facility] Results This patient has no known results.
[2020-06-12 06:35] LABS: Absolute Lymphocytes (CBC) 3.3 K/uL (0.7-4.9); Basophils % 0.4 % (0-1.3); Hematocrit 36.1 % (36.0-45.0); Lymphocytes % 24.2 % (15.3-44.8); MPV 7.5 fL (7.6-11.3); RBC Red Blood Cell Count 4.06 M/uL (3.86-4.86)
[2020-06-12] MEDS ORDERED: ONDANSETRON 4 MG/2 ML VIAL ONE ×2 (06:38→10:27)
[2020-06-12 06:54] LABS: ALT/SGPT 45 U/L (12-78); AST/SGOT 40 U/L (15-37); Albumin 3.9 g/dL (3.4-5.0); Alkaline Phosphatase 124 U/L (45-117); BUN Blood Urea Nitrogen 10 mg/dL (7-18); Bicarbonate 22 mmol/L (21-32); Bilirubin Direct < 0.1 mg/dL (0-0.2); Bilirubin Total 0.2 mg/dL (0.2-1.0); Glucose Level 202 mg/dL (74-106); Lipase 55 U/L (73-393); Potassium 3.5 mmol/L (3.5-5.1); Protein, Total 7.1 g/dL (6.4-8.2); Sodium Level 121 mmol/L (136-145)
[2020-06-12] MEDS ORDERED: PROMETHAZINE INJ 25 MG/ML AMP ONE ×3 (07:40→08:11)
[2020-06-12] MEDS ORDERED: NA CHLORIDE 0.9% 1,000 ML ONE ×2 (07:41→10:21)
[2020-06-12] MEDS ORDERED: MEPERIDINE HCL 25 MG/ML SYR ONE (08:12)
[2020-06-12 08:53] LABS: SARS-COV-2 RT PCR NEGATIVE (NEGATIVE)
--- NOTE | 2020-06-12 09:17 | RAD REPORT ---
EXAM DESCRIPTION: CT - Head Brain Wo Cont - 06/12/2020 8:40 am CLINICAL HISTORY: Alteration of awareness/confusion COMPARISON: February 2020 TECHNIQUE: Computed axial tomography of the head was obtained. IV contrast was not requested. All CT scans are performed using dose optimization technique as appropriate and may include automated exposure control or mA/KV adjustment according to patient size. FINDINGS: A limited evaluation secondary to patient motion artifact. Increased density is present along the left cerebral convexity. Ventricles are normal caliber. No shift of the midline structures. Fluid within the sinuses/ mastoids is not seen. IMPRESSION: Increased density appears to be present along the left cerebral convexity. This may repr esent a subdural hematoma. However, it is not certain secondary to the patient motion artifact. It is recommended that the patient have either have a follow-up head CT or MRI brain for further evaluatio n. Examination was discussed with Emma Hussein in the Emergency Room at 9:05 a.m. June 12, 2020
[2020-06-12 09:20] LABS: Urine Specific Gravity/Preg 1.025 (1.005-1.030)
[2020-06-12] MEDS ORDERED: FENTANYL CITR 100 MCG/2 ML ONE (10:46)
[2020-06-12] MEDS ORDERED: METOCLOPRAMIDE 10 MG/2mL INJ ONE (11:26)
[2020-06-12] MEDS ORDERED: LORazepam 2 MG/ML VIAL ONE (11:27)
--- NOTE | 2020-06-12 11:51 | RAD REPORT ---
EXAM DESCRIPTION: CTHead angio06/12/2020 11:27 am CLINICAL HISTORY: Headache COMPARISON: None TECHNIQUE: CT angiogram of the head was obtained. 3D MIPS reconstruction performed. All CT scans are performed using dose optimization technique as appropriate and may include automated exposure control or mA/KV adjustment according to patient size. FINDINGS: The basilar, internal carotid, anterior cerebral, middle cerebral and posterior cerebral a rteries are normal caliber. An aneurysm is not seen. A significant stenosis is not noted. IMPRESSION: Unremarkable CT angiogram head.
--- NOTE | 2020-06-12 12:21 | EDPHYS ---
Physician Documentation [facility] Name: Jaimie Amanda Age: 59 yrs Sex: Female : 1960 Arrival Date: 06/12/2020 Time: 06:19 Bed 6 Private MD: ED Physician Villa Byrd HPI: 06/12 07:48 This 59 yrs old Female presents to ER via EMS with complaints of headache. rn 07:48 The patient complains of pain to the top of head and forehead. The patient describes rn the headache as aching. Onset: The symptoms/episode began/occurred this morning. Associated signs and symptoms: Pertinent positives: nausea, Pertinent negatives: altered mental status, fever, neck stiffness, rash, vision changes, vision loss, vertigo. Severity of symptoms: At its worst the pain was moderate, in the emergency department the pain is unchanged. Headache History: Denies prior headaches. The symptoms are alleviated by nothing. the symptoms are aggravated by nothing. The patient has not experienced similar symptoms in the past. The patient has not recently seen a physician. Reports headache and nausea began this morning, no fever, no cough, no change in taste or smell. NO head injury. . Historical: - Allergies: 06:26 Nitroglycerin; mg2 - PMHx: 06:26 Anxiety; Depression; Diabetes - NIDDM; etoh abuse; Hypertension; Hypothyroidism; mg2 Seizures; - Immunization history:: Flu vaccine status is unknown. - Social history:: Smoking status: Patient reports the use of cigarette tobacco products, Patient uses alcohol, on a daily basis. Patient/guardian denies using street drugs, IV drugs. - Family history:: not pertinent. - Hospitalizations: : No recent hospitalization is reported. ROS: 07:48 Constitutional: Negative for fever, chills, and weight loss, Eyes: Negative for injury, rn pain, redness, and discharge, ENT: Negative for injury, pain, and discharge, Neck: Negative for injury, pain, and swelling, Cardiovascular: Negative for chest pain, palpitations, and edema, Respiratory: Negative for shortness of breath, cough, wheezing, and pleuritic chest pain, Abdomen/GI: + nausea, neg for abd pain or diarrhea Back: Negative for injury and pain, : Negative for injury, bleeding, discharge, and swelling, MS/Extremity: Negative for injury and deformity, Skin: Negative for injury, rash, and discoloration, Neuro: Negative for weakness, numbness, tingling, and seizure. Exam: 07:48 Constitutional: This is a well developed, well nourished patient who is awake, alert, rn holding emesis bag, appears uncomfortable Head/Face: Normocephalic, atraumatic. Eyes: Pupils equal round and reactive to light, extra-ocular motions intact. Cardiovascular: Regular rate and rhythm. No pulse deficits. Respiratory: No increased work of breathing, no retractions or nasal flaring. Abdomen/GI: soft, non-tender, non-distended Skin: Warm, dry MS/ Extremity: Pulses equal, no cyanosis. Neurovascular intact. Full, normal range of motion. Equal circumference. Neuro: Awake and alert, GCS 15, oriented to person, place, time, and situation. Cranial nerves II-XII grossly intact. Motor strength 5/5 in all extremities. Sensory grossly intact. Cerebellar exam normal. Vital Signs: 06:15 BP 169 / 91; Pulse 89; Resp 18; Temp 98; Pulse Ox 96% on R/A; Weight 73.03 kg; Height 5 mg2 ft. 7 in. (170.18 cm); 07:35 BP 130 / 85; Pulse 91; Resp 18; Temp 97.0; Pulse Ox 97% on R/A; Pain 8/10; ld1 08:15 BP 164 / 97; Pulse 82; Resp 18; Temp 97; Pulse Ox 97% on R/A; Pain 0/10; ld1 09:43 BP 172 / 98; Pulse 92; Resp 18; Temp 97(O); Pulse Ox 97% ; ld1 10:16 BP 165 / 79; Pulse 90; Resp 18; Pulse Ox 96% on R/A; ld1 10:57 BP 165 / 79; Pulse 90; Resp 18; Pain 5/10; ld1 12:07 BP 182 / 95; Pulse 90; Resp 18; Pulse Ox 98% ; Pain 0/10; ld1 06:15 Body Mass Index 25.22 (73.03 kg, 170.18 cm) mg2 [place] Score: 12:19 Eye Response: spontaneous(4). Verbal Response: oriented(5). Motor Response: obeys rn commands(6). Total: 15. MDM: 07:01 Patient medically screened. rn 10:08 Differential diagnosis: migraine, neoplasm, subarachnoid bleed, subdural hematoma, rn tension headache. 10:34 ED course: Pt continuing to refuse to go to MRI until pain is gone, told her pain will rn not go away, given fentanyl, explained she needs MRI to rule out subdural.. 11:02 ED course: Called Judy Valdez, states will consult after surgery completed. . rn 12:14 ED course: Repeat ct head angio no acute findings, does not reveal possible subdural rn seen on previous study. . 12:19 Data reviewed: vital signs, nurses notes, lab test result(s), radiologic studies, CT rn scan, and as a result, I will discharge patient. Counseling: I had a detailed discussion with the patient and/or guardian regarding: the historical points, exam findings, and any diagnostic results supporting the discharge/admit diagnosis, lab results, radiology results, the need for outpatient follow up, to return to the emergency department if symptoms worsen or persist or if there are any questions or concerns that arise at home. Response to treatment: the patient's symptoms have markedly improved after treatment, the patient's condition has returned to base line, and as a result, I will discharge patient. Special discussion: I discussed with the patient/guardian in detail that at this point there is no indication for admission to the hospital. It is understood, however, that if the symptoms persist or worsen the patient needs to return immediately for re-evaluation. ED course: Pt ambulatory, feels much better, repeat ct angio neg for subdural. Will dc home with return precautions. . 06/12 06:19 Order name: Basic Metabolic Panel mg2 06/12 06:19 Order name: CBC with Diff; Complete Time: 07:18 mg2 06/12 06:19 Order name: Hepatic Function; Complete Time: 07:18 mg2 06/12 06:19 Order name: Lipase; Complete Time: 07:18 mg2 06/12 06:19 Order name: Basic Metabolic Panel; Complete Time: 07:18 EDMS 06/12 07:18 Order name: CT Head Brain wo Cont; Complete Time: 10:08 rn 06/12 08:11 Order name: Urine Dipstick-Ancillary; Complete Time: 08:15 EDMS 06/12 08:12 Order name: Urine --Ancillary (enter results); Complete Time: 10:08 bd 06/12 08:53 Order name: COVID-19/FLU A+B; Complete Time: 10:08 EDMS 06/12 11:01 Order name: CT Head Angio; Complete Time: 12:10 rn 06/12 06:19 Order name: IV Saline Lock; Complete Time: 06:22 mg2 06/12 06:19 Order name: Labs collected and sent; Complete Time: 06:22 mg2 06/12 08:05 Order name: Urine Dipstick-Ancillary (obtain specimen); Complete Time: 08:14 rn Administered Medications: 06:22 Drug: Zofran (Ondansetron) 4 mg Route: IVP; Site: right wrist; mg2 07:45 Drug: Phenergan 12.5 mg Route: IVP; Site: right wrist; ld1 08:00 Follow up: Response: No adverse reaction ld1 08:00 Follow up: Response: No adverse reaction ld1 07:45 Drug: NS 0.9% 1000 ml Route: IV; Rate: 1000 ml; Site: right wrist; ld1 12:29 Follow up: Response: No adverse reaction; IV Status: Completed infusion ld1 08:05 Drug: Phenergan 12.5 mg Route: IVP; Site: right wrist; ld1 08:18 Follow up: Response: No adverse reaction ld1 08:05 Drug: Demerol 25 mg Route: IVP; Site: right wrist; ld1 08:18 Follow up: Response: No adverse reaction ld1 10:14 Drug: NS 0.9% 1000 ml Route: IV; Rate: 1000 ml; Site: right wrist; ld1 12:28 Follow up: Response: No adverse reaction; IV Status: Completed infusion ld1 10:14 Drug: Zofran (Ondansetron) 4 mg Route: IVP; Site: right wrist; ld1 10:35 Follow up: Response: No adverse reaction ld1 10:30 Drug: fentaNYL (PF) 75 mcg Route: IVP; Site: right wrist; ld1 10:44 Follow up: Response: No adverse reaction ld1 10:50 Follow up: Response: No adverse reaction ld1 11:15 Drug: Reglan 10 mg Route: IVP; Site: right wrist; ld1 11:37 Follow up: Response: No adverse reaction ld1 11:15 Drug: Ativan 0.5 mg Route: IVP; Site: right wrist; ld1 11:38 Follow up: Response: No adverse reaction ld1 Disposition: 06/12/20 12:21 Discharged to Home. Impression: Headache. - Condition is Stable. - Discharge Instructions: General Headache Without Cause. - Medication Reconciliation Form, Thank You Letter, Antibiotic Education, Prescription Opioid Use form. - Follow up: Private Physician; When: As needed; Reason: Recheck today's complaints, Re-evaluation by your physician. - Problem is new. - Symptoms have improved. Signatures: Dispatcher [employer] EDMS Villa Byrd MD MD rn Gardose, Michele, RN RN mg2 Maritza Smith RN RN ld1 Corrections: (The following items were deleted from the chart) 08:12 07:19 CORONAVIRUS+MR.LAB.BRZ ordered. EDUT EDUT 08:12 07:19 Influenza Screen (A \T\ B)+BA.LAB.BRZ ordered. EDUT EDMS 12:09 09:13 MRA Head Wo Cont ordered. EDUT EDMS 12:30 12:21 06/12/2020 12:21 Discharged to Home. Impression: Headache. Condition is Stable. ld1 Forms are Medication Reconciliation Form, Thank You Letter, Antibiotic Education, Prescription Opioid Use. Follow up: Private Physician; When: As needed; Reason: Recheck today's complaints, Re-evaluation by your physician. Problem is new. Symptoms have improved. rn
--- NOTE | 2020-06-12 12:21 | ER ---
Nurse's Notes [facility] Name: Jaimie Amanda Age: 59 yrs Sex: Female : 1960 Arrival Date: 06/12/2020 Time: 06:19 Bed 6 Private MD: Diagnosis: Headache Presentation: 06/12 06:15 Chief complaint: EMS states: sister called us saying that patient may have a reaction mg2 from the new medicine she is taking for cholesterol ( Zetia) like dizziness and headache. . on the way here she vomited like 250 ml of gastric contents. Coronavirus screen: Client denies travel out of the [place] in the last 14 days. Ebola Screen: No symptoms or risks identified at this time. Initial Sepsis Screen: Does the patient meet any 2 criteria? No. Patient's initial sepsis screen is negative. Does the patient have a suspected source of infection? No. Patient's initial sepsis screen is negative. Risk Assessment: Do you want to hurt yourself or someone else? Patient reports no desire to harm self or others. Onset of symptoms was June 12, 2020. 06:15 Method Of Arrival: EMS: [facility] mg2 06:15 Acuity: ZHEN 3 mg2 Triage Assessment: 06:26 General: Appears in no apparent distress. uncomfortable, Behavior is calm, cooperative. mg2 Pain: Complains of pain in head. EENT: No deficits noted. Neuro: Level of Consciousness is awake, alert, obeys commands, Oriented to person, place, time, situation, Reports dizziness, headache. Cardiovascular: Capillary refill < 3 seconds Patient's skin is warm and dry. Respiratory: Airway is patent Respiratory effort is even, unlabored, Respiratory pattern is regular, symmetrical. GI: Pt is actively vomiting undigested food, Reports vomiting. : No signs and/or symptoms were reported regarding the genitourinary system. Derm: Skin is intact, is healthy with good turgor, Skin is pink, warm \T\ dry. normal. Musculoskeletal: Circulation, motion, and sensation intact. Capillary refill < 3 seconds. Historical: - Allergies: 06:26 Nitroglycerin; mg2 - PMHx: 06:26 Anxiety; Depression; Diabetes - NIDDM; etoh abuse; Hypertension; Hypothyroidism; mg2 Seizures; - Immunization history:: Flu vaccine status is unknown. - Social history:: Smoking status: Patient reports the use of cigarette tobacco products, Patient uses alcohol, on a daily basis. Patient/guardian denies using street drugs, IV drugs. - Family history:: not pertinent. - Hospitalizations: : No recent hospitalization is reported. Screenin:28 Abuse screen: Denies threats or abuse. Denies injuries from another. Nutritional mg2 screening: No deficits noted. Tuberculosis screening: No symptoms or risk factors identified. Fall Risk IV access (20 points). 07:30 Abuse screen: Denies threats or abuse. Denies injuries from another. Nutritional ld1 screening: No deficits noted. Tuberculosis screening: No symptoms or risk factors identified. Fall Risk IV access (20 points). Assessment: 06:27 Reassessment: see triage note. mg2 07:30 General: Appears distressed, uncomfortable, Behavior is appropriate for age, agitated, ld1 fussy. Pain: Complains of pain in top of head and forehead Pain currently is 8 out of 10 on a pain scale. Quality of pain is described as throbbing, Pain began 2 hours ago. Is continuous. Neuro: Level of Consciousness is awake, alert, obeys commands, Oriented to person, place, time, situation. Cardiovascular: Patient's skin is warm and dry. Respiratory: Airway is patent Respiratory effort is even, unlabored, Respiratory pattern is regular, symmetrical. GI: Abdomen is round non-distended, Pt is actively vomiting clear fluid, Bowel sounds present X 4 quads. Abd is soft and non tender X 4 quads. Reports nausea. : Urine is clear. EENT:. 07:40 Reassessment: Notified ERP of nausea while at bedside discussing POC. ld1 09:43 Reassessment: No changes from previously documented assessment. Patient and/or family ld1 updated on plan of care and expected duration. Pain level reassessed. Notified ERP of patient status. No new orders at this time. 09:48 Reassessment: Notified ERP of elevated BP. No new orders at this time. ld1 10:16 Reassessment: Patient c/o nausea and headache. Notified ERP. See MAR for orders. ld1 10:25 Reassessment: Notified ERP of headache pain level 10/10. See MAR for orders. Pain: ld1 Complains of pain in face Pain currently is 10 out of 10 on a pain scale. Quality of pain is described as throbbing, Pain began 2-3 days ago. Is continuous. 12:07 Reassessment: Patient states she is feeling much better now, no longer c/o headache or ld1 nausea, vomiting has subsided. Notified ERP of BP of 182/95. Vital Signs: 06:15 BP 169 / 91; Pulse 89; Resp 18; Temp 98; Pulse Ox 96% on R/A; Weight 73.03 kg; Height 5 mg2 ft. 7 in. (170.18 cm); 07:35 BP 130 / 85; Pulse 91; Resp 18; Temp 97.0; Pulse Ox 97% on R/A; Pain 8/10; ld1 08:15 BP 164 / 97; Pulse 82; Resp 18; Temp 97; Pulse Ox 97% on R/A; Pain 0/10; ld1 09:43 BP 172 / 98; Pulse 92; Resp 18; Temp 97(O); Pulse Ox 97% ; ld1 10:16 BP 165 / 79; Pulse 90; Resp 18; Pulse Ox 96% on R/A; ld1 10:57 BP 165 / 79; Pulse 90; Resp 18; Pain 5/10; ld1 12:07 BP 182 / 95; Pulse 90; Resp 18; Pulse Ox 98% ; Pain 0/10; ld1 06:15 Body Mass Index 25.22 (73.03 kg, 170.18 cm) mg2 [place] Coma Score: 12:19 Eye Response: spontaneous(4). Verbal Response: oriented(5). Motor Response: obeys rn commands(6). Total: 15. ED Course: 06:19 Patient arrived in ED. mg2 06:20 Hermann Andrade, RN is Primary Nurse. mg2 06:20 Initial lab(s) drawn, by wa, sent to lab. Inserted saline lock: 18 gauge in right jb4 wrist, using aseptic technique. Blood collected. 06:25 Triage completed. mg2 06:26 Arm band placed on. mg2 06:28 No provider procedures requiring assistance completed. mg2 06:28 Patient has correct armband on for positive identification. Door closed. Warm blanket mg2 given. 07:01 Villa Byrd MD is Attending Physician. rn 07:06 Primary Nurse role handed off by Hermann Andrade, CATY bd 07:25 Radiology exam delayed due to pt refusing until she gets meds. sj 07:30 No provider procedures requiring assistance completed. Urine collected: clean catch ld1 specimen, clear. IV is patent, is intact. 07:30 Patient has correct armband on for positive identification. Bed in low position. Call ld1 light in reach. Side rails up X2. Door closed. Warm blanket given. 07:44 Basic Metabolic Panel Sent. sv 07:48 Maritza Smith, CATY is Primary Nurse. ld1 08:14 Urine Dipstick-Ancillary Sent. ld1 08:40 CT Head Brain wo Cont In Process Unspecified. EDMS 11:27 CT Head Angio In Process Unspecified. EDMS 12:26 IV discontinued, bleeding controlled, No redness/swelling at site. ld1 Administered Medications: 06:22 Drug: Zofran (Ondansetron) 4 mg Route: IVP; Site: right wrist; mg2 07:45 Drug: Phenergan 12.5 mg Route: IVP; Site: right wrist; ld1 08:00 Follow up: Response: No adverse reaction ld1 08:00 Follow up: Response: No adverse reaction ld1 07:45 Drug: NS 0.9% 1000 ml Route: IV; Rate: 1000 ml; Site: right wrist; ld1 12:29 Follow up: Response: No adverse reaction; IV Status: Completed infusion ld1 08:05 Drug: Phenergan 12.5 mg Route: IVP; Site: right wrist; ld1 08:18 Follow up: Response: No adverse reaction ld1 08:05 Drug: Demerol 25 mg Route: IVP; Site: right wrist; ld1 08:18 Follow up: Response: No adverse reaction ld1 10:14 Drug: NS 0.9% 1000 ml Route: IV; Rate: 1000 ml; Site: right wrist; ld1 12:28 Follow up: Response: No adverse reaction; IV Status: Completed infusion ld1 10:14 Drug: Zofran (Ondansetron) 4 mg Route: IVP; Site: right wrist; ld1 10:35 Follow up: Response: No adverse reaction ld1 10:30 Drug: fentaNYL (PF) 75 mcg Route: IVP; Site: right wrist; ld1 10:44 Follow up: Response: No adverse reaction ld1 10:50 Follow up: Response: No adverse reaction ld1 11:15 Drug: Reglan 10 mg Route: IVP; Site: right wrist; ld1 11:37 Follow up: Response: No adverse reaction ld1 11:15 Drug: Ativan 0.5 mg Route: IVP; Site: right wrist; ld1 11:38 Follow up: Response: No adverse reaction ld1 Outcome: 12:21 Discharge ordered by MD. rn 12:25 Discharged to home ambulatory, with family. ld1 12:25 Condition: stable 12:25 Discharge instructions given to patient, Instructed on discharge instructions. 12:30 Patient left the ED. ld1 Signatures: Dispatcher [employer] EDMS Tiffani Madera Stephanie RN RN Kristie Granados Roman, MD MD rn Bryson, James, RN RN jb4 Hermann Andrade RN RN mg2 Maritza Smith RN RN ld1 Corrections: (The following items were deleted from the chart) 08:16 07:45 NS 0.9% 1000 ml IV at 1000 ml in left wrist ld1 ld1 08:16 07:45 Phenergan 12.5 mg IVP in left wrist ld1 ld1 08:23 08:21 Abuse screen: Denies threats or abuse. Denies injuries from another. ld1 ld1 08:23 08:21 Nutritional screening: No deficits noted. ld1 ld1 08:23 08:21 Tuberculosis screening: No symptoms or risk factors identified. ld1 ld1 08:23 08:21 Fall Risk IV access (20 points). ld1 ld1
[2020-06-12 12:43] VITALS: TEMP 97
[2020-06-12 12:48] VITALS: BP 182/95; O2SAT 98
== END 2020-06-12 12:30 | disposition home or self-care (01) ==
LOC: ER 06:17
DX: R51.9 Headache, unspecified (principal); I10 Essential (primary) hypertension; F17.210 Nicotine dependence, cigarettes, uncomplicated; Z88.8 Allergy status to other drugs, medicaments and biological substances; Z20.822 Contact with and (suspected) exposure to COVID-19
CPT/HCPCS: 85025; 80048; 36415; 81025; 80076; 83690; 0240U; 70450; 70496; Q9967; J2765; J2550 ×2; J3010; J2175; J7030 ×2; J2405 ×2; 96361; 96374; 96375; 99284

== ENCOUNTER 2020-08-29 11:58 | Emergency (ER) | payer OTHER ==
--- OUTSIDE RECORDS SUMMARY | 2020-08-29 12:01 | XMS REPORT | Continuity of Care Document ---
:1960 Author Organization [facility] t Address [address] [place] [address] [address]. [address] [place] [address] Care Team Providers Name Role Phone Doctor Unassigned, Name Attending Clinician Unavailable Shar Brewster Attending Clinician Problems This patient has no known problems. Allergies, Adverse Reactions, Alerts This patient has no known allergies or adverse reactions. Medications This patient has no known medications. Procedures This patient has no known procedures. Encounters Start End Encounter Admission Attending Care Care Encounter Source Date/Time Date/Time Type Type Clinicians Facility Department ID 2020-07-25 2020-07-25 Orders Doctor FISH [id number] 00:00:00 00:00:00 Only UnassignedBK [id number] [place] [facility] [id number] 2018-10-21 2018-10-21 Telephone [facility]NER Back [id number] 00:00:00 00:00:00 Natacha Nguyen [id number] [place] [id number] [facility] [id number] [facility] 204 [facility] Results This patient has no known results.
[2020-08-29] MEDS ORDERED: ONDANSETRON 4 MG/2 ML VIAL ONE ×2 (12:38→13:18)
[2020-08-29] MEDS ORDERED: FAMOTIDINE 20 MG/2 ML VIAL IV ONE (12:38)
[2020-08-29 12:47] LABS: Absolute Lymphocytes (CBC) 2.4 K/uL (0.7-4.9); Basophils % 0.4 % (0-1.3); MPV 7.2 fL (7.6-11.3); RBC Red Blood Cell Count 4.63 M/uL (3.86-4.86)
[2020-08-29] MEDS ORDERED: NA CHLORIDE 0.9% 500 ML ONE ×2 (12:52→14:03)
[2020-08-29 12:57] LABS: ALT/SGPT 42 U/L (12-78); AST/SGOT 15 U/L (15-37); Albumin 4.3 g/dL (3.4-5.0); Alkaline Phosphatase 118 U/L (45-117); BUN Blood Urea Nitrogen 13 mg/dL (7-18); Bicarbonate 26 mmol/L (21-32); Bilirubin Direct < 0.1 mg/dL (0-0.2); Bilirubin Total 0.2 mg/dL (0.2-1.0); Glucose Level 139 mg/dL (74-106); Lipase 53 U/L (73-393); Potassium 3.5 mmol/L (3.5-5.1); Sodium Level 128 mmol/L (136-145)
[2020-08-29] MEDS ORDERED: cloNIDine HCL 0.1 MG TAB ONE (13:26)
--- NOTE | 2020-08-29 13:48 | RAD REPORT ---
EXAM DESCRIPTION: CT - Head Brain Wo Cont - 08/29/2020 1:35 pm CLINICAL HISTORY: Headache/hypertension COMPARISON: June 2020 TECHNIQUE: Computed axial tomography of the head was obtained. IV contrast was not requested. All CT scans are performed using dose optimization technique as appropriate and may include automated exposure control or mA/KV adjustment according to patient size. FINDINGS: An intracranial bleed is not seen . The ventricles are normal in caliber. No extra-axial fluid collection is noted. Fluid within the sinuses/ mastoids is not seen. IMPRESSION: No acute intracranial abnormality is seen. If patient's symptoms persist MRI of the bra in would be recommended.
[2020-08-29] MEDS ORDERED: PROMETHAZINE INJ 25 MG/ML AMP ONE (14:03)
--- NOTE | 2020-08-29 14:48 | EDPHYS ---
Physician Documentation [facility] Name: Jaimie Amanda Age: 59 yrs Sex: Female : 1960 Arrival Date: 08/29/2020 Time: 12:01 Bed 27 Private MD: ED Physician Villa Byrd HPI: 08/29 12:20 This 59 yrs old Female presents to ER via Ambulatory with complaints of Abd cp Pain > 50 y/o - VOMITING. 12:20 The patient presents with abdominal pain right side of abdomen. cp 12:20 Onset: The symptoms/episode began/occurred this morning. cp 12:20 The symptoms do not radiate. Associated signs and symptoms: Pertinent positives: nausea cp and vomiting, Pertinent negatives: chest pain, constipation, diarrhea, fever, vomiting blood. The symptoms are described as constant. Severity of pain: in the emergency department the pain is unchanged despite home interventions. Historical: - Allergies: 12:05 Nitroglycerin; tw2 - PMHx: 12:05 Depression; Diabetes - NIDDM; Anxiety; etoh abuse; Hypertension; Hypothyroidism; tw2 Seizures; - Immunization history:: Adult Immunizations. - Social history:: Smoking status: Patient reports the use of cigarette tobacco products, smokes one pack cigarettes per day. Patient uses alcohol, admits to "couple of beers" a day. " a beer yesterday but not a whole one". ROS: 12:30 Constitutional: Positive for poor PO intake, Negative for body aches, chills, fever. cp 12:30 Eyes: Negative for injury, pain, redness, and discharge. cp 12:30 ENT: Negative for ear pain, sore throat, difficulty swallowing, difficulty handling secretions. 12:30 Cardiovascular: Negative for chest pain. 12:30 Respiratory: Negative for cough, shortness of breath, wheezing. 12:30 Abdomen/GI: Positive for abdominal pain, nausea and vomiting, Negative for diarrhea, constipation, hematemesis, black/tarry stool, rectal bleeding. 12:30 Back: Negative for radiated pain. 12:30 : Negative for urinary symptoms. 12:30 Neuro: Negative for altered mental status, dizziness, headache, syncope, weakness. 12:30 All other systems are negative. Exam: 12:33 Constitutional: The patient appears in no acute distress, alert, awake, cp non-diaphoretic, non-toxic, well developed, well nourished, uncomfortable. 12:33 Head/Face: Normocephalic, atraumatic. cp 12:33 Eyes: Periorbital structures: appear normal, Conjunctiva: normal, no exudate, no injection, Sclera: no appreciated abnormality, Lids and lashes: appear normal, bilaterally. 12:33 ENT: External ear(s): are unremarkable, Nose: is normal, Mouth: Lips: moist, Oral mucosa: moist, Posterior pharynx: Airway: no evidence of obstruction, patent. 12:33 Chest/axilla: Inspection: normal, Palpation: is normal, no crepitus, no tenderness. 12:33 Cardiovascular: Rate: normal, Rhythm: regular, Edema: is not appreciated, JVD: is not appreciated. 12:33 Respiratory: the patient does not display signs of respiratory distress, Respirations: normal, no use of accessory muscles, no retractions, labored breathing, is not present, Breath sounds: are clear throughout, no decreased breath sounds. 12:33 Abdomen/GI: Inspection: abdomen appears normal, Bowel sounds: active, all quadrants, Palpation: soft, in all quadrants, moderate abdominal tenderness, in the anterior aspect of right lateral abdomen, rebound tenderness, is not appreciated, involuntary guarding, is not appreciated. 12:33 Back: CVA tenderness, is absent. 12:33 Skin: no rash present. 12:33 Neuro: Orientation: to person, place \\T\\ time. Mentation: is normal, Motor: moves all fours, strength is normal. Vital Signs: 12:03 BP 177 / 95; Pulse 97; Resp 18; Temp 97.9(TE); Pulse Ox 100% on R/A; Weight 76.2 kg tw2 (R); Height 5 ft. 7 in. (170.18 cm); 12:10 BP 204 / 86; Pulse 97; Resp 18; Temp 97.9(O); Pulse Ox 97% on R/A; Weight 76.2 kg; ld1 Height 5 ft. 6 in. (167.64 cm); 13:00 BP 176 / 82; Pulse 82; Resp 18; Pulse Ox 100% on R/A; ld1 14:50 BP 164 / 82; Pulse 86; Resp 18; Pulse Ox 100% ; ld1 12:10 Body Mass Index 27.11 (76.20 kg, 167.64 cm) ld1 MDM: 12:14 Patient medically screened. cp 13:00 Differential diagnosis: appendicitis, bowel obstruction, cholecystitis, Cholelithiasis, cp gastritis, pancreatitis, Peptic Ulcer Disease, Perf. Duodenal Ulcer, Ureterolithiasis, urinary tract infection. 14:45 Data reviewed: vital signs, nurses notes, lab test result(s), radiologic studies, CT cp scan. 14:45 Response to treatment: the patient's symptoms have mildly improved after treatment. cp Refusal of service: The patient/guardian displays adequate decision making capability and despite a detailed discussion of alternatives, benefits, risks, and consequences refuses: CT scan of abdomen. Patient reports nausea improved and requests discharge to home. 08/29 12:15 Order name: Basic Metabolic Panel 08/29 12:15 Order name: CBC with Diff 08/29 12:15 Order name: Hepatic Function 08/29 12:15 Order name: Lipase 08/29 12:18 Order name: ETOH Level 08/29 12:56 Order name: CBC with Automated Diff; Complete Time: 13:03 EDPR 08/29 12:57 Order name: Alcohol Serum/Plasma; Complete Time: 13:03 EDPR 08/29 12:58 Order name: Basic Metabolic Panel; Complete Time: 13:03 EDPR 08/29 12:58 Order name: Liver (Hepatic) Function; Complete Time: 13:03 EDPR 08/29 12:58 Order name: Lipase; Complete Time: 13:03 EDPR 08/29 13:04 Order name: CT Head Brain wo Cont 08/29 13:04 Order name: CT Abd/Pelvis - IV Contrast Only 08/29 13:04 Order name: Urine Microscopic Only 08/29 13:48 Order name: CT; Complete Time: 14:28 EDPR 08/29 12:15 Order name: IV Saline Lock; Complete Time: 12:28 08/29 12:15 Order name: Labs collected and sent; Complete Time: 12:28 cp Administered Medications: 12:27 Drug: Pepcid (famotidine) 20 mg Route: IVP; Site: right antecubital; ld1 13:46 Follow up: Response: No adverse reaction ld1 12:28 Drug: Zofran (Ondansetron) 4 mg Route: IVP; Site: right antecubital; ld1 13:46 Follow up: Response: No adverse reaction ld1 12:33 Drug: NS 0.9% 500 ml Route: IV; Rate: bolus; Site: right antecubital; ld1 13:04 Drug: Zofran (Ondansetron) 4 mg Route: IVP; Site: right antecubital; ld1 13:46 Follow up: Response: No adverse reaction ld1 13:05 Drug: cloNIDine 0.2 mg Route: PO; ld1 13:46 Follow up: Response: No adverse reaction ld1 13:45 Drug: Phenergan (promethazine) 25 mg Route: IVP; Site: right antecubital; ld1 14:45 Follow up: Response: No adverse reaction ld1 14:45 Drug: Reglan (metoCLOPramide) 10 mg Route: IVP; Site: right antecubital; ld1 14:45 Follow up: Response: No adverse reaction ld1 Disposition: 08/29/20 14:48 Patient has left against medical advice. Impression: Nausea and vomiting, Hypertensive heart disease. - Patients states they are going to Home. - Condition is Stable. - Discharge Instructions: Hypertension, Nausea and Vomiting, Adult. Follow up: Private Physician; When: 1 - 2 days; Reason: Recheck today's complaints. - Problem is new. - Symptoms have improved. Addendum: 09/03/2020 07:03 Co-signature as Attending Physician, Villa Byrd MD. r n Signatures: Dispatcher [employer] EDVilla Almonte MD MD rn Page, Corey, PA PA cp Maddy Prieto RN RN 2 Maritza Smith RN RN ld1 Corrections: (The following items were deleted from the chart) 08/29 14:51 14:48 08/29/2020 14:48 Patients has left against medical advice. Impression: Nausea and ld1 vomiting; Hypertensive heart disease. Patient states they are going to Home. Condition is Stable. Follow up: Private Physician; When: 1 - 2 days; Reason: Recheck today's complaints. Problem is new. Symptoms have improved. cp
--- NOTE | 2020-08-29 14:48 | ER ---
Nurse's Notes [facility] Name: Jaimie Amanda Age: 59 yrs Sex: Female : 1960 Arrival Date: 08/29/2020 Time: 12:01 Bed 27 Private MD: Diagnosis: Nausea and vomiting;Hypertensive heart disease Presentation: 08/29 12:03 Chief complaint: Patient states: since 1 am this morning i started having pain on the tw2 RIGHT side of my stomach and i started throwing up and i cant quit. i dont want any pain medicine just something for nausea. Coronavirus screen: At this time, the client does not indicate any symptoms associated with coronavirus-19. Ebola Screen: Patient denies travel to an Ebola-affected area in the 21 days before illness onset. Initial Sepsis Screen: Does the patient meet any 2 criteria? HR > 90 bpm. No. Patient's initial sepsis screen is negative. Does the patient have a suspected source of infection? No. Patient's initial sepsis screen is negative. Risk Assessment: Do you want to hurt yourself or someone else? Patient reports no desire to harm self or others. Onset of symptoms was August 29, 2020. 12:03 Method Of Arrival: Ambulatory tw2 12:03 Acuity: ZHEN 3 tw2 Triage Assessment: 12:05 General: Appears in no apparent distress. Behavior is calm, cooperative, appropriate tw2 for age. Pain: Complains of pain in right lower quadrant. GI: Reports lower abdominal pain, upper abdominal pain, intolerance of fluids, intolerance of food, nausea. Historical: - Allergies: 12:05 Nitroglycerin; tw2 - PMHx: 12:05 Depression; Diabetes - NIDDM; Anxiety; etoh abuse; Hypertension; Hypothyroidism; tw2 Seizures; - Immunization history:: Adult Immunizations. - Social history:: Smoking status: Patient reports the use of cigarette tobacco products, smokes one pack cigarettes per day. Patient uses alcohol, admits to "couple of beers" a day. " a beer yesterday but not a whole one". Screenin:10 Abuse screen: Denies threats or abuse. Denies injuries from another. Nutritional ld1 screening: No deficits noted. Tuberculosis screening: No symptoms or risk factors identified. Fall Risk None identified. Assessment: 12:10 General: Appears in no apparent distress. uncomfortable, Behavior is calm, cooperative, ld1 appropriate for age. Pain: Denies pain. Neuro: Level of Consciousness is awake, alert, obeys commands, Oriented to person, place, time, situation, Appropriate for age. Cardiovascular: Capillary refill < 3 seconds Patient's skin is warm and dry. Respiratory: Airway is patent Respiratory effort is even, unlabored, Respiratory pattern is regular, symmetrical. GI: Abdomen is flat, non-distended, Bowel sounds present X 4 quads. Abd is soft and non tender X 4 quads. Reports nausea, vomiting, since Pt states the N/V started in the middle of the night 08/29/2020. : No signs and/or symptoms were reported regarding the genitourinary system. EENT: No signs and/or symptoms were reported regarding the EENT system. Derm: No signs and/or symptoms reported regarding the dermatologic system. Musculoskeletal: No signs and/or symptoms reported regarding the musculoskeletal system. 14:48 Reassessment: No changes from previously documented assessment. Patient anxious, ld1 stating "I want to go home." Notified ERP. Vital Signs: 12:03 BP 177 / 95; Pulse 97; Resp 18; Temp 97.9(TE); Pulse Ox 100% on R/A; Weight 76.2 kg tw2 (R); Height 5 ft. 7 in. (170.18 cm); 12:10 BP 204 / 86; Pulse 97; Resp 18; Temp 97.9(O); Pulse Ox 97% on R/A; Weight 76.2 kg; ld1 Height 5 ft. 6 in. (167.64 cm); 13:00 BP 176 / 82; Pulse 82; Resp 18; Pulse Ox 100% on R/A; ld1 14:50 BP 164 / 82; Pulse 86; Resp 18; Pulse Ox 100% ; ld1 12:10 Body Mass Index 27.11 (76.20 kg, 167.64 cm) ld1 ED Course: 12:01 Patient arrived in ED. wm 12:04 Triage completed. tw2 12:05 Arm band placed on. tw2 12:10 Maritza Smith, RN is Primary Nurse. ld1 12:10 Patient has correct armband on for positive identification. Bed in low position. Call ld1 light in reach. Side rails up X2. Pulse ox on. NIBP on. 12:10 No provider procedures requiring assistance completed. ld1 12:10 Inserted saline lock: 20 gauge in right antecubital area, using aseptic technique. ld1 Blood collected. 12:12 Diego Ang PA is PHCP. cp 12:12 Villa Byrd MD is Attending Physician. cp 14:51 IV discontinued, intact, bleeding controlled, No redness/swelling at site. ld1 Administered Medications: 12:27 Drug: Pepcid (famotidine) 20 mg Route: IVP; Site: right antecubital; ld1 13:46 Follow up: Response: No adverse reaction ld1 12:28 Drug: Zofran (Ondansetron) 4 mg Route: IVP; Site: right antecubital; ld1 13:46 Follow up: Response: No adverse reaction ld1 12:33 Drug: NS 0.9% 500 ml Route: IV; Rate: bolus; Site: right antecubital; ld1 13:04 Drug: Zofran (Ondansetron) 4 mg Route: IVP; Site: right antecubital; ld1 13:46 Follow up: Response: No adverse reaction ld1 13:05 Drug: cloNIDine 0.2 mg Route: PO; ld1 13:46 Follow up: Response: No adverse reaction ld1 13:45 Drug: Phenergan (promethazine) 25 mg Route: IVP; Site: right antecubital; ld1 14:45 Follow up: Response: No adverse reaction ld1 14:45 Drug: Reglan (metoCLOPramide) 10 mg Route: IVP; Site: right antecubital; ld1 14:45 Follow up: Response: No adverse reaction ld1 Outcome: 14:50 AMA AMA form signed ld1 14:50 Condition: stable 14:50 Discharge instructions given to patient. 14:51 Patient left the ED. ld1 Signatures: Diego Ang PA PA cp Wise, Tara, RN RN tw2 Maritza Smith RN RN ld1 Monica Atkins
[2020-08-29] MEDS ORDERED: METOCLOPRAMIDE 10 MG/2mL INJ ONE (14:52)
[2020-08-29 15:13] VITALS: TEMP 97.9
[2020-08-29 15:17] VITALS: O2SAT 100
[2020-08-29 15:18] VITALS: BP 164/82
== END 2020-08-29 14:51 | disposition left against medical advice (07) ==
LOC: ER 11:58
DX: I11.9 Hypertensive heart disease without heart failure (principal); I10 Essential (primary) hypertension; Z88.8 Allergy status to other drugs, medicaments and biological substances
CPT/HCPCS: 85025; 80048; 36415; 80320; 80076; 83690; 70450; 96375; 96374; 99284; J2765; J2550; J7040 ×2; J2405 ×2

== ENCOUNTER 2020-10-09 12:58 | Emergency (ER) | payer OTHER ==
--- OUTSIDE RECORDS SUMMARY | 2020-10-09 13:02 | XMS REPORT | Continuity of Care Document ---
:1960 Author Organization [facility] t Address [address] [place] [address] Care Team Providers Name Role Phone Sharpless Primary Care Physician Doctor Unassigned, Name Attending Clinician Unavailable Gramm Shar CLARK Attending Clinician Problems This patient has no known problems. Allergies, Adverse Reactions, Alerts This patient has no known allergies or adverse reactions. Social History Social Habit Start Date Stop Date Quantity Comments Source Sex Assigned At [facility] Alcohol intake 2016-05-01 2016-05-01 Current [facility] es - 00:00:00 00:00:00 non-drinker of Medical Ce nter alcohol (finding) Smoking Status Start Date Stop Date Source Current every day smoker 2016-05-01 00:00:00 [facility] Medications Ordered Filled Start Stop Current Ordering Indication Dosage Frequency Signature Comments Components Source Medication Medication Date Date Medication? Clinician (SIG) Name Name OXcarbazepi Yes 600mg [id number] Take [address] [facility] ne - [id number] mg by [facility] - (TRILEPTAL) 10:23: 3D mouth 3 Med ical 600 MG 59 (three) Center tablet times daily. PARoxetine Yes 40mg QD Take [address] (PAXIL) 40 23 by mouth [facility] - MG tablet 10:23: nightly. Medi anjelica 59 Center LORazepam Yes 1mg Take [address] [facility] (ATIVAN) 1 2-23 tablet (1 [facility] - MG tablet 00:00: mg total) Med ical 00 by mouth 3 Center (three) times daily as needed for Anxiety for up to 5 doses. Max Daily Amount: 3 mg levothyroxi Yes 100ug QD Take [address] ne 4-04 mcg by [facility] - (SYNTHROID, 12:29: mouth Medic al LEVOTHROID) 18 daily. Center 100 MCG tablet Procedures This patient has no known procedures. Encounters Start End Encounter Admission Attending Care Care Encounter Source Date/Time Date/Time Type Type Clinicians Facility Department ID 2020-07-25 2020-07-25 Orders Doctor ABE [id number] 16 00:00:00 00:00:00 Only Unassigned, BK [id number] [place] [facility] [id number] 2018-10-21 2018-10-21 Telephone Gramm, [facility] [id number] 00:00:00 00:00:00 Natacha Nguyen [id number] [place] [id number] Professio [phone] [facility] Results This patient has no known results.
[2020-10-09] MEDS ORDERED: DIAZEPAM 10 MG/2 ML INJ SYRINGE ONE (14:27)
[2020-10-09] MEDS ORDERED: predniSONE 20 MG TAB ONE (14:27)
[2020-10-09] MEDS ORDERED: ALBUTEROL INHALER 60 PUFF/8 GM IH ONE (14:27)
--- NOTE | 2020-10-09 16:25 | RAD REPORT ---
EXAM DESCRIPTION: Trina Single View10/09/2020 2:41 pm CLINICAL HISTORY: Shortness of breath COMPARISON: May 2020 FINDINGS: Lung bases are hazy. Upper lobes appear clear. Heart is normal size IMPRESSION: Lung bases are hazy most likely secondary to overlying breast implants. If patient's sym ptoms persist PA and lateral chest series would be recommended
--- NOTE | 2020-10-09 16:50 | ER ---
Nurse's Notes [facility] Name: Jaimie Amanda Age: 59 yrs Sex: Female : 1960 Arrival Date: 10/09/2020 Time: 12:59 Bed Treatment Private MD: Diagnosis: Acute upper respiratory infection, unspecified;Anxiety disorder, unspecified Presentation: 10/09 13:55 Chief complaint: Patient states: "I am having an anxiety attack". Pt also reports cough aa5 and fever x 5 days ago. 13:55 Coronavirus screen: cough unrelated to allergies, fever, Client presents with at least aa5 one sign or symptom that may indicate coronavirus-19. Standard/surgical mask placed on the client. Ebola Screen: Patient negative for fever greater than or equal to 101.5 degrees Fahrenheit, and additional compatible Ebola Virus Disease symptoms. Initial Sepsis Screen: Does the patient meet any 2 criteria? No. Patient's initial sepsis screen is negative. Does the patient have a suspected source of infection? No. Patient's initial sepsis screen is negative. Risk Assessment: Do you want to hurt yourself or someone else? Patient reports no desire to harm self or others. Onset of symptoms was October 2020. 13:55 Acuity: ZHEN 3 aa5 13:55 Method Of Arrival: Ambulatory aa5 Triage Assessment: 17:00 General: Appears in no apparent distress. Behavior is calm, cooperative. iw Historical: - Allergies: 13:57 Nitroglycerin; aa5 - PMHx: 13:57 Anxiety; Depression; Diabetes - NIDDM; etoh abuse; Hypertension; Hypothyroidism; aa5 Seizures; - Immunization history:: Client reports receiving the 2nd dose of the Covid vaccine. - Social history:: Smoking status: Patient reports the use of cigarette tobacco products. Screenin:25 Abuse screen: Denies threats or abuse. Denies injuries from another. Nutritional iw screening: No deficits noted. Tuberculosis screening: No symptoms or risk factors identified. Fall Risk None identified. Assessment: 17:00 Reassessment: Patient appears in no apparent distress at this time. Patient and/or iw family updated on plan of care and expected duration. Pain level reassessed. Patient is alert, oriented x 3, equal unlabored respirations, skin warm/dry/pink. Vital Signs: 13:55 BP 165 / 62; Pulse 89; Resp 22 S; Temp 97.3(TE); Pulse Ox 96% on R/A; aa5 ED Course: 12:59 Patient arrived in ED. mr 13:56 Arm band placed on. aa5 13:58 Triage completed. aa5 14:26 Blas Garay NP is PHCP. pm1 14:26 Diego Ramirez MD is Attending Physician. pm1 14:41 Chest Single View XRAY In Process Unspecified. EDMS 16:23 Therese Logan, RN is Primary Nurse. iw 17:00 Patient has correct armband on for positive identification. iw 17:25 No provider procedures requiring assistance completed. Patient did not have IV access iw during this emergency room visit. Administered Medications: 14:14 Drug: Valium (diazepam) 5 mg Route: IM; Site: right gluteus; aa5 14:20 Follow up: Response: No adverse reaction iw 21:27 Follow up: Response: No adverse reaction iw 14:15 Drug: Ventolin (albuterol) Inhaler 2 puffs Route: Inhalation; aa5 21:26 Follow up: Response: No adverse reaction iw 14:15 Drug: predniSONE 60 mg Route: PO; aa5 14:25 Follow up: Response: No adverse reaction iw 21:26 Follow up: Response: No adverse reaction iw 17:26 Drug: Valium (diazepam) 5 mg Route: PO; iw 17:35 Follow up: Response: No adverse reaction iw 21:26 Follow up: Response: No adverse reaction iw 21:26 Follow up: Response: No adverse reaction iw Outcome: 16:49 Discharge ordered by MD. pm1 17:25 Discharged to home ambulatory. iw 17:25 Condition: good 17:25 Discharge instructions given to patient, Instructed on discharge instructions, follow up and referral plans. medication usage, Demonstrated understanding of instructions, follow-up care, medications, Prescriptions given X 2. 17:26 Patient left the ED. iw Signatures: Dispatcher [employer] COSTAWI Messina Radha Therese Vanessa, CATY BYRNE iw Bhavna Corado RN RN aa5 Blas Garay, UCHE RESIDENTIAL RECYCLE DRIVER pm1
--- NOTE | 2020-10-09 16:50 | EDPHYS ---
Physician Documentation [facility] Name: Jaimie Amanda Age: 59 yrs Sex: Female : 1960 Arrival Date: 10/09/2020 Time: 12:59 Bed Treatment Private MD: Diego Nascimento HPI: 10/09 14:07 This 59 yrs old Female presents to ER via Ambulatory with complaints of pm1 Anxiety. 14:07 The patient presents to the emergency department with anxiety. Onset: The pm1 symptoms/episode began/occurred last night. Past psychiatric history: Prior diagnosis: depression, Anxiety , Psychiatric medications include: Xanax, Clonidine. Associated signs and symptoms: Pertinent positives; cough , Pertinent negatives: abdominal pain, chest pain, fever, nausea, vomiting. Severity of symptoms: in the emergency department the symptoms are unchanged. The patient has been recently seen by a physician: telemedicine visit with PCP 2 days ago for the cough. Given nasal steroids and Tessalon Perles . Patient has appointment in 2 days to get swabbed for covid. Patient's main concern is her anxiety. She ran out of her xanax and started having an anxiety attack last night. During here telemedicine visit she was not having anxiety issues and did not address her prescription at that time. Historical: - Allergies: 13:57 Nitroglycerin; aa5 - PMHx: 13:57 Anxiety; Depression; Diabetes - NIDDM; etoh abuse; Hypertension; Hypothyroidism; aa5 Seizures; - Immunization history:: Client reports receiving the 2nd dose of the Covid vaccine. - Social history:: Smoking status: Patient reports the use of cigarette tobacco products. ROS: 14:07 Eyes: Negative for injury, pain, redness, and discharge, ENT: Negative for injury, pm1 pain, and discharge, Neck: Negative for injury, pain, and swelling, Cardiovascular: Negative for chest pain, palpitations, and edema. 14:07 Abdomen/GI: Negative for abdominal pain, nausea, vomiting, diarrhea, and constipation, Back: Negative for injury and pain, MS/Extremity: Negative for injury and deformity, Skin: Negative for injury, rash, and discoloration, Neuro: Negative for headache, weakness, numbness, tingling, and seizure. 14:07 Constitutional: Positive for chills, fever, Negative for poor PO intake. 14:07 Respiratory: Positive for cough, Negative for shortness of breath. 14:07 Psych: Positive for anxiety. 14:07 All other systems are negative. Exam: 14:07 Constitutional: This is a well developed, well nourished patient who is awake, alert, pm1 and in no acute distress. Head/Face: Normocephalic, atraumatic. 14:07 Back: No spinal tenderness. No costovertebral tenderness. Full range of motion. Skin: Warm, dry with normal turgor. Normal color with no rashes, no lesions, and no evidence of cellulitis. MS/ Extremity: Pulses equal, no cyanosis. Neurovascular intact. Full, normal range of motion. 14:07 Eyes: Exam is negative for acute changes, Extraocular movements: no acute changes, Conjunctiva: normal, no acute changes, no injection. 14:07 ENT: Exam is negative for acute changes, Mouth: Lips: normal, Oral mucosa: normal, pink and intact, moist. 14:07 Cardiovascular: Rate: normal, Rhythm: regular, Pulses: no pulse deficits are appreciated, Edema: is not appreciated. 14:07 Respiratory: Exam negative for acute changes, respiratory distress, shortness of breath, Breath sounds: are clear throughout. 14:07 Abdomen/GI: Exam negative for acute changes, Inspection: abdomen appears normal, Palpation: abdomen is soft and non-tender, in all quadrants. 14:07 Neuro: Exam negative for acute changes, Orientation: is normal, Mentation: is normal, Motor: is normal, moves all fours. Vital Signs: 13:55 BP 165 / 62; Pulse 89; Resp 22 S; Temp 97.3(TE); Pulse Ox 96% on R/A; aa5 MDM: 14:13 Data reviewed: vital signs. Data interpreted: Pulse oximetry: on room air is 96 %. pm1 Interpretation: normal. 14:15 ED course: FACILITIES PROJECT MANAGER aware reviewed. Patient should not have ran out of her xanax. pm1 15:07 Patient medically screened. pm1 16:48 Counseling: I had a detailed discussion with the patient and/or guardian regarding: the pm1 historical points, exam findings, and any diagnostic results supporting the discharge/admit diagnosis, lab results, radiology results, the need for outpatient follow up, to return to the emergency department if symptoms worsen or persist or if there are any questions or concerns that arise at home. 10/09 14:01 Order name: COVID-19 : Document "Date of Symptom Onset" if Symptomatic. aa5 10/09 14:02 Order name: Flu; Complete Time: 16:21 aa5 10/09 14:02 Order name: Strep; Complete Time: 16:21 aa5 10/09 16:20 Order name: Throat Culture [facility] 10/09 16:32 Order name: SARS-COV-2 RT PCR; Complete Time: 16:34 EDUT 10/09 14:00 Order name: Chest Single View XRAY; Complete Time: 16:34 aa5 Administered Medications: 14:14 Drug: Valium (diazepam) 5 mg Route: IM; Site: right gluteus; aa5 14:20 Follow up: Response: No adverse reaction iw 21:27 Follow up: Response: No adverse reaction iw 14:15 Drug: Ventolin (albuterol) Inhaler 2 puffs Route: Inhalation; aa5 21:26 Follow up: Response: No adverse reaction iw 14:15 Drug: predniSONE 60 mg Route: PO; aa5 14:25 Follow up: Response: No adverse reaction iw 21:26 Follow up: Response: No adverse reaction iw 17:26 Drug: Valium (diazepam) 5 mg Route: PO; iw 17:35 Follow up: Response: No adverse reaction iw 21:26 Follow up: Response: No adverse reaction iw 21:26 Follow up: Response: No adverse reaction iw Disposition: 10/10 07:04 Co-signature as Attending Physician, Diego Ramirez MD I agree with the assessment and hannah plan of care. Disposition Summary: 10/09/20 16:49 Discharge Ordered Location: Home pm1 Problem: new pm1 Symptoms: have improved pm1 Condition: Stable pm1 Diagnosis - Acute upper respiratory infection, unspecified pm1 - Anxiety disorder, unspecified pm1 Followup: pm1 - With: Emergency Department - When: As needed - Reason: Worsening of condition Followup: pm1 - With: Private Physician - When: 2 - 3 days - Reason: Recheck today's complaints, Continuance of care, Re-evaluation by your physician Discharge Instructions: - Discharge Summary Sheet pm1 - Acute Bronchitis, Adult pm1 - Upper Respiratory Infection, Adult pm1 - Viral Respiratory Infection pm1 - Generalized Anxiety Disorder, Adult pm1 Forms: - Medication Reconciliation Form pm1 - Thank You Letter pm1 - Antibiotic Education pm1 - Prescription Opioid Use pm1 Prescriptions: - Ventolin HFA 90 mcg/actuation Inhalation HFA aerosol inhaler - inhale 2 puff by INHALATION route every 4-6 hours As needed; 1 Inhaler; pm1 Refills: 0, Product Selection Permitted - Tessalon Perles 100 mg Oral Capsule - take 1 capsule by ORAL route every 8 hours As needed; 15 capsule; Refills: 0, pm1 Product Selection Permitted - Medrol (Howard) 4 mg Oral Tablets, Dose Pack - take 1 tablet by ORAL route as directed - follow package instructions; 1 pm1 packet; Refills: 0, Product Selection Permitted Signatures: Dispatcher [employer] EDMS Diego Ramirez MD MD cha Williams, Irene RN RN Bhavna Yañez RN RN aa5 Blas Garay, UCHE VOICE ENGINEER pm1 Corrections: (The following items were deleted from the chart) 10/09 15:39 14:02 CORONAVIRUS ordered. EDUT EDMS
[2020-10-09] MEDS ORDERED: DIAZEPAM 5 MG TABLET ONE (17:43)
[2020-10-09 18:07] VITALS: BP 165/62; TEMP 97.3; O2SAT 96
== END 2020-10-09 17:26 | disposition home or self-care (01) ==
LOC: ER 12:58
DX: J06.9 Acute upper respiratory infection, unspecified (principal); F41.9 Anxiety disorder, unspecified; I10 Essential (primary) hypertension; Z20.822 Contact with and (suspected) exposure to COVID-19; Z72.0 Tobacco use; Z88.8 Allergy status to other drugs, medicaments and biological substances
CPT/HCPCS: 87070; 87081; 87804 ×2; 71045; U0003; J7512; J3360; 96372; 99284

== ENCOUNTER 2020-10-22 00:43 | Inpatient (IN) | payer OTHER ==
--- OUTSIDE RECORDS SUMMARY | 2020-10-22 00:47 | XMS REPORT | Continuity of Care Document ---
:1960 Author Organization [facility] t Address [address] [place] [address] Care Team Providers Name Role Phone Sharpless Primary Care Physician Doctor Unassigned, Name Attending Clinician Unavailable Gramm Shar CLARK Attending Clinician Problems This patient has no known problems. Allergies, Adverse Reactions, Alerts This patient has no known allergies or adverse reactions. Social History Social Habit Start Date Stop Date Quantity Comments Source Sex Assigned At [facility] Alcohol intake 2016-05-01 2016-05-01 Current [facility] es - 00:00:00 00:00:00 non-drinker of Medical Ce nter alcohol (finding) Smoking Status Start Date Stop Date Source Current every day smoker 2016-05-01 00:00:00 [facility] Medications Ordered Filled Start Stop Current Ordering Indication Dosage Frequency Signature Comments Components Source Medication Medication Date Date Medication? Clinician (SIG) Name Name OXcarbazepi Yes 600mg [id number] Take [address] [facility] ne - [id number] mg by [facility] - (TRILEPTAL) 10:23: 3D mouth 3 Med ical 600 MG 59 (three) Center tablet times daily. PARoxetine Yes 40mg QD Take [address] (PAXIL) 40 -23 by mouth [facility] - MG tablet 10:23: [...] ID 2020-07-25 2020-07-25 Orders Doctor ABE [id number] 00:00:00 00:00:00 Only Unassigned, BK [id number] [place] [facility] [id number] 2018-10-21 2018-10-21 Telephone Gramm, [facility] [id number] 00:00:00 00:00:00 Natacha Nguyen [id number] [place] [id number] Professio [phone] [facility] 204 [facility] Results This patient has no known results.
[2020-10-22] MEDS ORDERED: FAMOTIDINE 20 MG/2 ML VIAL IV ONE (01:31)
[2020-10-22] MEDS ORDERED: MORPHINE 4 MG/ML SYR ONE (01:31)
[2020-10-22] MEDS ORDERED: NA CHLORIDE 0.9% 2,000 ML ONE (01:31)
[2020-10-22] MEDS ORDERED: ONDANSETRON 4 MG/2 ML VIAL ONE ×6 (01:31→20:00)
[2020-10-22 01:43] LABS: Absolute Lymphocytes (CBC) 2.2 K/uL (0.7-4.9); Basophils % 0.3 % (0-1.3); Hematocrit 43.6 % (36.0-45.0); Lymphocytes % 20.9 % (15.3-44.8); MPV 6.7 fL (7.6-11.3)
[2020-10-22] MEDS ORDERED: LORazepam 2 MG/ML VIAL ONE ×2 (02:11→04:11)
[2020-10-22 02:12] LABS: ALT/SGPT 56 U/L (12-78); AST/SGOT 23 U/L (15-37); Albumin 4.9 g/dL (3.4-5.0); Alkaline Phosphatase 129 U/L (45-117); BUN Blood Urea Nitrogen 8 mg/dL (7-18); Bicarbonate 25 mmol/L (21-32); Bilirubin Direct 0.2 mg/dL (0-0.2); Bilirubin Total 0.6 mg/dL (0.2-1.0); Glucose Level 177 mg/dL (74-106); Lipase 51 U/L (73-393); Magnesium 1.6 mg/dL (1.8-2.4); Potassium 4.3 mmol/L (3.5-5.1)
[2020-10-22 02:13] LABS: Sodium Level 111 mmol/L (136-145)
[2020-10-22 02:52] LABS: Troponin (Emerg Dept Use Only) < 0.02 ng/mL (0.0-0.045)
[2020-10-22 03:30] LABS: Urine Blood Trace-lysed (Negative); Urine Glucose Negative (Negative); Urine Protein Negative (Negative); Urine Specific Gravity 1.015 (1.005-1.030)
[2020-10-22 03:53] LABS: Barbiturates NEGATIVE (NEGATIVE); Benzodiazepines NEGATIVE (NEGATIVE); Cocaine NEGATIVE (NEGATIVE); METHAMPHETAM NEGATIVE (NEGATIVE); Methadone NEGATIVE (NEGATIVE); Opiates NEGATIVE (NEGATIVE); Phencyclidine NEGATIVE (NEGATIVE); THC Cannibis NEGATIVE (NEGATIVE)
[2020-10-22] MEDS ORDERED: cloNIDine HCL 0.1 MG TAB ONE (04:11)
[2020-10-22] MEDS ORDERED: MAGNESIUM SULFATE 1 gm IVPB 1 GM/100 ML BAG IV ONE (04:12)
--- NOTE | 2020-10-22 05:27 | EDPHYS ---
Physician Documentation [facility] Name: Jaimie Amanda Age: 59 yrs Sex: Female : 1960 Arrival Date: 10/22/2020 Time: 00:46 Bed 20 Private MD: ED Physician Gustavo Reed HPI: 10/22 01:10 This 59 yrs old Female presents to ER via Ambulatory with complaints of cp Nausea/Vomiting, Abdominal Pain. 01:10 The patient presents to the emergency department with nausea, with "dry heaves", cp vomiting, that is continuous. 01:10 Onset: The symptoms/episode began/occurred last night. Possible causes: unknown. cp 01:10 Associated signs and symptoms: Pertinent positives: abdominal pain, anorexia, Pertinent cp negatives: constipation, diarrhea, fever, GI bleeding. Historical: - Allergies: 01:44 Nitroglycerin; lp1 - Home Meds: 01:44 clonidine HCl 0.2 mg Oral tab [Active]; hydroxyzine HCl 50 mg Oral tab 1 tab BID PRN lp1 [Active]; levothyroxine 137 mcg tab 1 tab once daily [Active]; Linzess 290 mcg Oral cap 1 cap once daily [Active]; liothyronine 5 mcg Oral tab 1 tab once daily [Active]; losartan-hydrochlorothiazide 100-25 mg Oral tab 1 tab once daily [Active]; metformin 500 mg Oral tab 1 tab 2 times per day [Active]; naltrexone 50 mg Oral tab 1 tab once daily [Active]; omeprazole 40 mg Oral cpDR 1 cap once daily [Active]; oxcarbazepine 600 mg Oral tab 1 am and 2 pm [Active]; oxybutynin chloride 5 mg Oral tab 1 tab 2 times per day [Active]; paroxetine HCl 40 mg Oral tab 1 tab once daily [Active]; risperidone Oral [Active]; trazodone 100 mg Oral tab 1 tab nightly [Active]; - PMHx: 01:44 Anxiety; Depression; Diabetes - NIDDM; etoh abuse; Hypertension; Hypothyroidism; lp1 Seizures; - PSHx: 01:44 None; lp1 - Immunization history:: Adult Immunizations up to date. - Social history:: Smoking status: Patient reports the use of cigarette tobacco products, smokes one-half pack cigarettes per day. ROS: 01:15 Constitutional: Positive for poor PO intake, Negative for body aches, chills, fever. cp 01:15 Cardiovascular: Negative for chest pain, edema, palpitations. cp 01:15 Eyes: Negative for injury, pain, redness, and discharge. cp 01:15 Neck: Negative for pain with movement, pain at rest, stiffness. 01:15 Respiratory: Negative for cough, shortness of breath, wheezing. 01:15 Abdomen/GI: Positive for abdominal pain, nausea and vomiting, anorexia, Negative for diarrhea, constipation, hematemesis, black/tarry stool, rectal bleeding. 01:15 Neuro: Negative for altered mental status, dizziness, headache, seizure activity, syncope, weakness. 01:15 Psych: Positive for anxiety. 01:15 All other systems are negative. Exam: 01:20 Constitutional: The patient appears in no acute distress, alert, awake, cp non-diaphoretic, non-toxic, well developed, well nourished, uncomfortable. 01:20 Head/Face: Normocephalic, atraumatic. cp 01:20 Eyes: Periorbital structures: appear normal, Conjunctiva: normal, no exudate, no injection, Sclera: no appreciated abnormality, Lids and lashes: appear normal, bilaterally. 01:20 ENT: External ear(s): are unremarkable, Nose: is normal, Mouth: Lips: moist, Oral cp mucosa: moist, Posterior pharynx: Airway: no evidence of obstruction, patent. 01:20 Chest/axilla: Inspection: normal. cp 01:20 Cardiovascular: Rate: normal, Rhythm: regular, Edema: is not appreciated, JVD: is not appreciated. 01:20 Respiratory: the patient does not display signs of respiratory distress, Respirations: normal, no use of accessory muscles, no retractions, labored breathing, is not present, Breath sounds: are clear throughout, no decreased breath sounds, no stridor, no wheezing. 01:20 Abdomen/GI: Inspection: abdomen appears normal, Palpation: soft, in all quadrants, moderate abdominal tenderness, in the right upper quadrant and left upper quadrant, rebound tenderness, is not appreciated, involuntary guarding, is not appreciated. 01:20 Back: pain, is absent, ROM is normal. 01:20 Skin: no rash present. 01:20 Neuro: Orientation: to person, place \\T\\ time. Mentation: able to follow commands, slow to respond, Motor: moves all fours, strength is normal, Sensation: no obvious gross deficits, Gait: is steady. 03:18 ECG was reviewed by the Attending Physician. cp Vital Signs: 01:00 BP 200 / 110 LA Sitting (man/reg); Pulse 98; Resp 20 S; Temp 98.2(O); Pulse Ox 99% ; mw2 01:20 Weight 79.38 kg; Height 5 ft. 7 in. (170.18 cm); Pain 9/10; lp1 03:00 BP 203 / 99; lp1 04:00 BP 196 / 84; Pulse 80; Resp 18; lp1 04:30 BP 175 / 97; Pulse 76; Resp 18; Pulse Ox 94% on R/A; lp1 05:25 BP 146 / 86; Pulse 94; Resp 18; Pulse Ox 95% on R/A; lp1 01:20 Body Mass Index 27.41 (79.38 kg, 170.18 cm) lp1 MDM: 00:55 Patient medically screened. cp 05:24 Differential diagnosis: Nonspecific abd pain, gastritis, cholecystitis, pancreatitis, mh7 appendicitis, diverticulitis, viral gastroenteritis. Data reviewed: vital signs, nurses notes, old medical records, lab test result(s), CBC, electrolytes, EKG, radiologic studies, CT scan. Data interpreted: Pulse oximetry: on room air is 94 %. Interpretation: acceptable. Counseling: I had a detailed discussion with the patient and/or guardian regarding: the historical points, exam findings, and any diagnostic results supporting the discharge/admit diagnosis, the presence of at least one elevated blood pressure reading (>120/80) during this emergency department visit, lab results, radiology results, the need for further work-up and treatment in the hospital. Response to treatment: the patient's symptoms have markedly improved after treatment. 10/22 01:01 Order name: Basic Metabolic Panel; Complete Time: 03:12 cp 10/22 02:20 Interpretation: Normal except: NA 111; CL 77; GLUC 177; GFR 86. cp 10/22 01:01 Order name: CBC with Diff; Complete Time: 01:57 cp 10/22 01:57 Interpretation: Normal except: RBC 5.00; HGB 15.1; PLT 590; MPV 6.7. cp 10/22 01:01 Order name: Hepatic Function; Complete Time: 03:12 cp 10/22 02:20 Interpretation: Normal except: ALK 129; TP 9.0; GLOB 4.1. cp 10/22 01:01 Order name: Lipase; Complete Time: 03:12 cp 10/22 02:20 Interpretation: LIP 51; Reviewed. cp 10/22 01:01 Order name: Magnesium; Complete Time: 03:12 cp 10/22 02:20 Interpretation: Abnormal: MG 1.6. cp 10/22 01:01 Order name: Urine Microscopic Only; Complete Time: 00:56 cp 10/22 02:24 Order name: Osmolality, Serum cp 10/22 02:24 Order name: Urine Osmolality cp 10/22 02:24 Order name: COVID-19 : Document "Date of Symptom Onset" if Symptomatic. 10/22 02:24 Order name: Osmolality, Serum; Complete Time: 00:56 EDMS 10/22 02:24 Order name: Osmolality, Urine; Complete Time: 00:56 EDMS 10/22 02:26 Order name: ETOH Level; Complete Time: 03:12 cp 10/22 03:12 Interpretation: Within normal limits: ETOH < 10. cp 10/22 02:26 Order name: UDS; Complete Time: 04:33 cp 10/22 02:34 Order name: Troponin (Emerg Dept Use Only); Complete Time: 03:12 EDMS 10/22 03:30 Order name: Urine Dipstick-Ancillary EDMS 10/22 03:31 Order name: Urine Dipstick-Ancillary; Complete Time: 04:33 EDMS 10/22 05:20 Order name: SARS-COV-2 RT PCR; Complete Time: 00:56 EDMS 10/22 07:21 Order name: Comprehensive Metabolic Panel; Complete Time: 00:56 EDMS 10/22 07:21 Order name: Phosphorus; Complete Time: 00:56 EDMS 10/22 07:21 Order name: Magnesium; Complete Time: 00:56 EDMS 10/22 07:33 Order name: T4 Free; Complete Time: 00:56 EDMS 10/22 07:33 Order name: Thyroid Stimulating Hormone; Complete Time: 00:56 EDMS 10/22 08:00 Order name: Glucose, Ancillary Testing; Complete Time: 00:56 EDMS 10/22 10:01 Order name: UR CREAT; Complete Time: 00:56 EDMS 10/22 10:27 Order name: Basic Metabolic Panel; Complete Time: 00:56 EDMS 10/22 10:34 Order name: Magnesium; Complete Time: 00:56 EDMS 10/22 11:57 Order name: Glucose, Ancillary Testing; Complete Time: 00:56 EDMS 10/22 13:42 Order name: Basic Metabolic Panel; Complete Time: 00:56 EDMS 10/22 01:57 Order name: CT Abd/Pelvis - IV Contrast Only; Complete Time: 00:56 cp 10/22 02:21 Order name: CT Head Brain wo Cont; Complete Time: 00:56 cp 10/22 17:41 Order name: Glucose, Ancillary Testing; Complete Time: 00:56 EDMS 10/22 18:35 Order name: Basic Metabolic Panel; Complete Time: 00:56 EDMS 10/22 20:38 Order name: Glucose, Ancillary Testing; Complete Time: 00:56 EDMS 10/22 22:06 Order name: Basic Metabolic Panel; Complete Time: 00:56 EDMS 10/22 23:38 Order name: Uric Acid; Complete Time: 00:56 EDMS 10/23 02:35 Order name: Basic Metabolic Panel EDMS 10/23 06:24 Order name: CBC without Diff EDMS 10/23 06:42 Order name: Magnesium EDMS 10/23 06:47 Order name: Basic Metabolic Panel EDMS 10/23 08:15 Order name: Glucose, Ancillary Testing EDMS 10/23 08:52 Order name: US EDMS 10/23 12:26 Order name: Glucose, Ancillary Testing EDMS 10/23 12:29 Order name: Electrolytes EDMS 10/23 12:29 Order name: Uric Acid EDMS 10/23 13:33 Order name: UR POTASSIUM EDMS 10/23 13:34 Order name: UR SODIUM EDMS 10/23 13:46 Order name: Osmolality, Urine EDMS 10/23 13:46 Order name: Ur Protein EDMS 10/23 13:49 Order name: Lactate EDMS 10/23 14:37 Order name: Urine Drug Screen EDMS 10/23 16:42 Order name: Glucose, Ancillary Testing EDMS 10/22 01:01 Order name: IV Saline Lock; Complete Time: 01:41 cp 10/22 01:01 Order name: Labs collected and sent; Complete Time: 01:41 cp 10/22 01:01 Order name: Urine Dipstick-Ancillary (obtain specimen); Complete Time: 03:32 cp 10/22 02:27 Order name: EKG; Complete Time: 02:27 cp 10/22 02:27 Order name: EKG - Nurse/Tech; Complete Time: 03:31 cp 10/22 05:30 Order name: CONS Physician Consult EDMS EC:18 Rate is 79 beats/min. Rhythm is regular. NE interval is normal. QRS interval is normal. cp QT interval is normal. T waves are Inverted in lead aVR. Interpreted by me. Reviewed by me. Administered Medications: 01:25 Drug: NS 0.9% 1000 ml Route: IV; Rate: 1 bolus; Site: right antecubital; lp1 02:30 Follow up: IV Status: Completed infusion; IV Intake: 1000ml lp1 01:25 Drug: Zofran (Ondansetron) 4 mg Route: IVP; Site: right antecubital; lp1 03:32 Follow up: Response: No adverse reaction lp1 01:25 Drug: Pepcid (famotidine) 20 mg Route: IVP; Site: right antecubital; lp1 03:31 Follow up: Response: No adverse reaction lp1 01:25 Drug: morphine 4 mg Route: IVP; Site: right antecubital; lp1 03:32 Follow up: Response: No adverse reaction lp1 01:44 CANCELLED (Physician Discretion): Ativan (LORazepam) 1 mg IVP once cp 01:51 CANCELLED (Physician Discretion): Ativan (LORazepam) 0.5 mg IVP once lp1 01:51 Drug: Ativan (LORazepam) 1 mg {Note: Verbal order from PA. Shivam} Route: IVP; lp1 Site: right antecubital; 03:31 Follow up: Response: No change in condition lp1 03:02 Drug: Zofran (Ondansetron) 4 mg Route: IVP; Site: right antecubital; bb 03:31 Follow up: Response: Nausea is decreased lp1 03:50 Drug: Ativan (LORazepam) 1 mg Route: IVP; Site: right antecubital; lp1 06:18 Follow up: Response: Marked relief of symptoms lp1 03:50 Drug: cloNIDine 0.2 mg Route: PO; lp1 06:17 Follow up: Response: Marked relief of symptoms; Blood pressure is lowered lp1 04:30 Drug: Magnesium Sulfate 1 grams Route: IVPB; Infused Over: 1 hrs; Site: right lp1 antecubital; 05:30 Follow up: IV Status: Completed infusion; IV Intake: 100ml lp1 07:16 Not Given (Physician Discretion): NS 0.9% 1000 ml IV at 1 bolus Per protocol; 1000 mL lp1 bolus Disposition Summary: 10/22/20 05:26 Hospitalization Ordered Hospitalization Status: Inpatient Admission [facility] Provider: Olegario Bettencourt Condition: Stable [facility] Problem: an acute exacerbation [facility] Symptoms: have improved [facility] Bed/Room Type: Standard [facility] Location: Telemetry/MedSurg (Inpatient)(10/23/20 15:41) Room Assignment: [facility](10/23/20 15:41) Diagnosis - Hypo-osmolality and hyponatremia mh7 - Vomiting mh7 - Abdominal Pain mh7 - Hypertension [facility] Forms: - Medication Reconciliation Form 7 - SBAR form [facility] Addendum: 10/26/2020 19:11 Co-signature as Attending Physician, Gustavo Reed MD. [facility] Signatures: Dispatcher [employer] EDSD Rosemarie Donaldson RN RN Alison Gutierres RN CATY Stephanie Peter RN RN bb Pena, Laura, RN RN lp1 Hu Gardner, SUPERVISORY LIFEGUARD-C SUPERVISORY LIFEGUARD-Cla1 Diego Ang PA PA cp Holmes, Maurice, MD MD [facility] Corrections: (The following items were deleted from the chart) 10/22 01:44 01:44 Ativan (LORazepam) 1 mg IVP once ordered. cp cp 01:51 01:44 Ativan (LORazepam) 0.5 mg IVP once ordered. cp lp1 02:34 02:27 TROPONIN (EMERG DEPT USE ONLY)+C.LAB.BRZ ordered. EDMS EDMS 03:59 02:24 CORONAVIRUS ordered. EDMS EDMS 06:06 05:26 Telemetry/MedSurg (Inpatient) [facility] 06:06 05:26 [facility] 10/23 15:41 08 06:06 [facility] ER HOLD [facility] 10/23 15:41 08/16 06:06 ERHOLD- mw dw
--- NOTE | 2020-10-22 05:27 | ER ---
Nurse's Notes [facility] Name: Jaimie Amanda Age: 59 yrs Sex: Female : 1960 Arrival Date: 10/22/2020 Time: 00:46 Bed 20 Private MD: Diagnosis: Hypo-osmolality and hyponatremia;Vomiting;Abdominal Pain;Hypertension Presentation: 10/22 01:20 Chief complaint: Patient states: Nausea/vomiting that began 1 day ago; Reports pain to lp1 RUQ of abdomen, patient states "I feel like I am having a panic attack". Coronavirus screen: Client denies travel out of the [place] in the last 14 days. At this time, the client does not indicate any symptoms associated with coronavirus-19. Ebola Screen: No symptoms or risks identified at this time. Initial Sepsis Screen: Does the patient meet any 2 criteria? No. Patient's initial sepsis screen is negative. Does the patient have a suspected source of infection? No. Patient's initial sepsis screen is negative. Risk Assessment: Do you want to hurt yourself or someone else? Patient reports no desire to harm self or others. 01:20 Method Of Arrival: Ambulatory lp1 01:20 Onset of symptoms was October 21, 2020. lp1 01:20 Acuity: ZHEN 3 lp1 Historical: - Allergies: 01:44 Nitroglycerin; lp1 - Home Meds: 01:44 clonidine HCl 0.2 mg Oral tab [Active]; hydroxyzine HCl 50 mg Oral tab 1 tab BID PRN lp1 [Active]; levothyroxine 137 mcg tab 1 tab once daily [Active]; Linzess 290 mcg Oral cap 1 cap once daily [Active]; liothyronine 5 mcg Oral tab 1 tab once daily [Active]; losartan-hydrochlorothiazide 100-25 mg Oral tab 1 tab once daily [Active]; metformin 500 mg Oral tab 1 tab 2 times per day [Active]; naltrexone 50 mg Oral tab 1 tab once daily [Active]; omeprazole 40 mg Oral cpDR 1 cap once daily [Active]; oxcarbazepine 600 mg Oral tab 1 am and 2 pm [Active]; oxybutynin chloride 5 mg Oral tab 1 tab 2 times per day [Active]; paroxetine HCl 40 mg Oral tab 1 tab once daily [Active]; risperidone Oral [Active]; trazodone 100 mg Oral tab 1 tab nightly [Active]; - PMHx: 01:44 Anxiety; Depression; Diabetes - NIDDM; etoh abuse; Hypertension; Hypothyroidism; lp1 Seizures; - PSHx: 01:44 None; lp1 - Immunization history:: Adult Immunizations up to date. - Social history:: Smoking status: Patient reports the use of cigarette tobacco products, smokes one-half pack cigarettes per day. Screenin:45 Abuse screen: Denies threats or abuse. Denies injuries from another. Nutritional lp1 screening: No deficits noted. Tuberculosis screening: No symptoms or risk factors identified. Fall Risk None identified. Assessment: 01:30 General: Appears uncomfortable, Behavior is anxious, restless. Pain: Complains of pain lp1 in right upper quadrant Pain currently is 9 out of 10 on a pain scale. Quality of pain is described as sharp, Pain began 1 day ago. Neuro: Level of Consciousness is awake, alert, obeys commands, Oriented to person, place, time, situation. Cardiovascular: Patient's skin is warm and dry. Respiratory: Respiratory effort is even, unlabored. GI: Abdomen is round Bowel sounds present X 4 quads. Abd is soft and non tender X 4 quads. Reports nausea, vomiting. : Reports urinary frequency. EENT: No signs and/or symptoms were reported regarding the EENT system. Derm: Skin is intact, Skin is dry, Skin is normal. Musculoskeletal: No deficits noted. 02:30 Reassessment: Verbal order from COURTNEY Solis to hold 2nd NS liter bolus. lp1 03:01 Reassessment: pt c/o nausea Diego VALDEZ notified new orders received pt medicated see bb MAY. 04:36 Reassessment: Patient appears more calm at this time; laying in bed, appears less lp1 anxious, restless. 05:23 Reassessment: Patient up to bs, urinary frequency noted. lp1 Vital Signs: 01:00 BP 200 / 110 LA Sitting (man/reg); Pulse 98; Resp 20 S; Temp 98.2(O); Pulse Ox 99% ; mw2 01:20 Weight 79.38 kg; Height 5 ft. 7 in. (170.18 cm); Pain 9/10; lp1 03:00 BP 203 / 99; lp1 04:00 BP 196 / 84; Pulse 80; Resp 18; lp1 04:30 BP 175 / 97; Pulse 76; Resp 18; Pulse Ox 94% on R/A; lp1 05:25 BP 146 / 86; Pulse 94; Resp 18; Pulse Ox 95% on R/A; lp1 01:20 Body Mass Index 27.41 (79.38 kg, 170.18 cm) lp1 ED Course: 00:46 Patient arrived in ED. wm 00:49 Diego Ang PA is PHCP. cp 00:49 Gustavo Reed MD is Attending Physician. cp 01:05 Joanie Young, RN is Primary Nurse. lp1 01:20 Missed attempt(s): 22 gauge in left forearm. Inserted saline lock: 20 gauge in right lp1 antecubital area, using aseptic technique. Blood collected. 01:30 Arm band placed on. lp1 01:44 Triage completed. lp1 01:52 Patient has correct armband on for positive identification. Pulse ox on. NIBP on. lp1 03:11 CT Head Brain wo Cont In Process Unspecified. EDMS 03:21 CT Abd/Pelvis - IV Contrast Only In Process Unspecified. EDMS 04:37 No provider procedures requiring assistance completed. lp1 04:39 All [facility] denied due to capacity. mw2 05:25 Olegario Bettencourt is Hospitalizing Provider. mh7 05:50 Patient admitted, IV remains in place. lp1 20:00 Inserted saline lock: 22 gauge in left wrist, using aseptic technique. jp3 10/23 07:47 Primary Nurse role handed off by Joanie Young, RN bd Administered Medications: 10/22 01:25 Drug: NS 0.9% 1000 ml Route: IV; Rate: 1 bolus; Site: right antecubital; lp1 02:30 Follow up: IV Status: Completed infusion; IV Intake: 1000ml lp1 01:25 Drug: Zofran (Ondansetron) 4 mg Route: IVP; Site: right antecubital; lp1 03:32 Follow up: Response: No adverse reaction lp1 01:25 Drug: Pepcid (famotidine) 20 mg Route: IVP; Site: right antecubital; lp1 03:31 Follow up: Response: No adverse reaction lp1 01:25 Drug: morphine 4 mg Route: IVP; Site: right antecubital; lp1 03:32 Follow up: Response: No adverse reaction lp1 01:44 CANCELLED (Physician Discretion): Ativan (LORazepam) 1 mg IVP once cp 01:51 CANCELLED (Physician Discretion): Ativan (LORazepam) 0.5 mg IVP once lp1 01:51 Drug: Ativan (LORazepam) 1 mg {Note: Verbal order from COURTNEY Solis.} Route: IVP; lp1 Site: right antecubital; 03:31 Follow up: Response: No change in condition lp1 03:02 Drug: Zofran (Ondansetron) 4 mg Route: IVP; Site: right antecubital; bb 03:31 Follow up: Response: Nausea is decreased lp1 03:50 Drug: Ativan (LORazepam) 1 mg Route: IVP; Site: right antecubital; lp1 06:18 Follow up: Response: Marked relief of symptoms lp1 03:50 Drug: cloNIDine 0.2 mg Route: PO; lp1 06:17 Follow up: Response: Marked relief of symptoms; Blood pressure is lowered lp1 04:30 Drug: Magnesium Sulfate 1 grams Route: IVPB; Infused Over: 1 hrs; Site: right lp1 antecubital; 05:30 Follow up: IV Status: Completed infusion; IV Intake: 100ml lp1 07:16 Not Given (Physician Discretion): NS 0.9% 1000 ml IV at 1 bolus Per protocol; 1000 mL lp1 bolus Intake: 02:30 IV: 1000ml; Total: 1000ml. lp1 05:30 IV: 100ml; Total: 1100ml. lp1 Outcome: 05:26 Decision to Hospitalize by Provider. [facility] 05:50 critical lp1 05:50 Instructed on the need for admit. 06:30 Admitted to ER Hold. Please see [facility] for further documentation. lp1 10/23 17:18 Patient left the ED. iw Signatures: Dispatcher [employer] EDMS Tiffani Madera Brenda, RN RN bb Therese Logan RN RN iw Joanie Young RN RN lp1 Diego Ang PA PA cp [place], MyKena 2 Joseph Correa jp3 Gustavo Reed MD MD 7 Monica Atkins Corrections: (The following items were deleted from the chart) 10/22 07:16 06:00 Admitted to ER Hold. [facility]. lp1 lp1
[2020-10-22 05:43] LABS: Urine Bacteria <20 /HPF (<20); Urine RBC <5 /HPF (NONE SEEN)
--- NOTE | 2020-10-22 05:51 | P.HP ---
Certification for Inpatient Patient admitted to: Inpatient With expected LOS: <2 Midnights Patient will require the following post-hospital care: None Practitioner: I am a practitioner with admitting privileges, knowledge of patient current condition, hospital course, and medical plan of care. Services: Services provided to patient in accordance with Admission requirements found in Title 42 Section 412.3 of the Code of Federal Regulations Patient History Date of Service: 10/22/20 Reason for admission: hyponatremia History of Present Illness: Ms. Amanda is a 59 yo F with history of HTN, hypothyroidism, chronic hyponatremia, and anxiety who presents with severe abdominal pain and nausea beginning on Thursday. She says this has happened before but never this bad. She says symptoms are worse with eating too much, and improved with walking. Says she has been having BM daily. Says her symptoms are worse with her panic attacks. Na 111, cl 77. GFR 86. glu 177. Mg 1.6. alk phos 129. Allergies nitroglycerin Adverse Reaction (Verified 07/05/18 06:27) severe hypotension Home Medications: Baclofen [Lioresal*] 10 mg PO TIDP PRN 02/23/20 Clonidine HCl [Catapres*] 0.2 mg PO BID 02/23/20 Dicyclomine [Bentyl*] 10 mg PO Q6HP PRN 02/23/20 Levothyroxine Sodium [Levothyroxine] 125 mcg PO [id number] 02/23/20 Liothyronine Sodium [Cytomel] 5 mcg PO [id number] 02/23/20 Metformin ER [Glucophage ER*] 1 tab PO BID 02/23/20 OXcarbazepine [Oxcarbazepine] 1,200 mg PO BEDTIME 02/23/20 OXcarbazepine [Oxcarbazepine] 600 mg PO DAILY 02/23/20 Omeprazole [Prilosec] 40 mg PO DAILY 02/23/20 Ondansetron HCl [Zofran] 1 tab PO Q8H PRN 02/23/20 Risperidone [Risperdal] 1 tab PO BID 02/23/20 clonazePAM [Klonopin*] 0.5 mg PO TID PRN #30 tab 05/18/20 - Past Medical/Surgical History Diabetic: No -: Hepatitis -: Anxiety -: HTN -: Hypothyroidism -: Alcoholic induced seizures -: Thyroidectomy -: Plastic surgery breast -: hernia repair - Family History Mother -: Hypertension, Diabetes, Cancer Notes: Thyroid, Knee replacement Father -: Heart disease, Hypertension, Diabetes - Social History Smoking Status: Unknown if ever smoked Alcohol use: Yes CD- Drugs: No Caffeine use: Yes Place of Residence: Home Review of Systems 10-point ROS is otherwise unremarkable Gastrointestinal: Nausea, Vomiting, Abdominal Pain Physical Examination - Physical Exam General: Alert, In no apparent distress HEENT: Atraumatic, PERRLA, Mucous membr. moist/pink, EOMI, Sclerae nonicteric Neck: Supple, 2+ carotid pulse no bruit, No LAD, Without JVD or thyroid abnormality Respiratory: Clear to auscultation bilaterally, Normal air movement Cardiovascular: Regular rate/rhythm, Normal S1 S2 Gastrointestinal: Normal bowel sounds, No ascites, No masses, No rebound, No guarding, Tenderness Musculoskeletal: No tenderness Integumentary: No rashes Neurological: Normal gait, Normal speech, Normal strength at 5/5 x4 extr, Normal tone, Normal affect Lymphatics: No axilla or inguinal lymphadenopathy - Studies Laboratory Data (last 24 hrs) 10/22/20 01:20: WBC 10.70, Hgb 15.1 H, Hct 43.6, Plt Count 590 H 10/22/20 01:20: Sodium 111 L*, Potassium 4.3, BUN 8, Creatinine 0.70, Glucose 177 H, Magnesium 1.6 L D, Total Bilirubin 0.6, AST 23, ALT 56, Alkaline Phosphatase 129 H, Lipase 51 L Assessment and Plan - Problems (Diagnosis) (1) Hyponatremia Current Visit: No Status: Acute (2) Hypertension Onset Date: 11/21/16 Current Visit: No Status: Chronic Qualifiers: Hypertension type: primary hypertension Qualified Code(s): I10 - Essential (primary) hypertension (3) Hypothyroid Current Visit: No Status: Chronic Qualifiers: Hypothyroidism type: unspecified Qualified Code(s): E03.9 - Hypothyroidism, unspecified - Plan continue IVF hydration pain management and antittusives as needed thyroid panel pending hydralazine PRN for BP spikes Mg replacement accuchecks and sliding scale insulin DVT ppx Discharge Plan: Home Plan to discharge in: 48 Hours - Advance Directives Does patient have a Living Will: No Does patient have a Durable POA for Healthcare: No - Code Status/Comfort Care Code Status Assessed: Yes (full code ) Critical Care: No Time Spent Managing Pts Care (In Minutes): 70
[2020-10-22] MEDS ORDERED: HYDRALAZINE HCL 20 MG/ML VIAL IV PRN (06:04)
[2020-10-22] MEDS ORDERED: NA CHLORIDE 0.9% 1,000 ML IV SCH (06:04)
[2020-10-22] MEDS: MORPHINE 2 MG/ML SYR IV PRN ×3 (06:15→14:41)
[2020-10-22] MEDS: ONDANSETRON 4 MG/2 ML VIAL IV PRN ×4 (06:15→22:57)
[2020-10-22] MEDS ORDERED: MORPHINE 2 MG/ML SYR ONE ×4 (06:46→20:00)
[2020-10-22 07:16] LABS: ALT/SGPT 51 U/L (12-78); AST/SGOT 21 U/L (15-37); Albumin 4.4 g/dL (3.4-5.0); Alkaline Phosphatase 114 U/L (45-117); BUN Blood Urea Nitrogen 6 mg/dL (7-18); Bicarbonate 26 mmol/L (21-32); Bilirubin Total 0.5 mg/dL (0.2-1.0); Glucose Level 137 mg/dL (74-106); Magnesium 2.3 mg/dL (1.8-2.4); Phosphorus 3.3 mg/dL (2.5-4.9); Potassium 4.4 mmol/L (3.5-5.1); Protein, Total 8.3 g/dL (6.4-8.2)
[2020-10-22 07:21] LABS: Sodium Level 119 mmol/L (136-145)
[2020-10-22] MEDS: INSULIN -REGULAR HUMAN 50 UNIT/0.5 ML ML SQ SCH ×4 (07:30→20:28)
[2020-10-22 07:33] LABS: Thyroid Stimulating Hormone 10.3 uIU/mL (0.360-3.740)
[2020-10-22] MEDS: ALPRAZOLAM 0.5 MG TABLET PO PRN ×3 (08:54→22:57)
[2020-10-22] MEDS ORDERED: DESMOPRESSIN 4 MCG/ML AMP SQ ONE (09:45)
[2020-10-22] MEDS: THIAMINE 200 MG/2 ML INJ IVP SCH (09:52)
[2020-10-22] MEDS ORDERED: D5W 1,000 ML IV ONE (10:00)
[2020-10-22] MEDS ORDERED: THIAMINE 200 MG/2 ML INJ ONE (10:00)
[2020-10-22] MEDS ORDERED: D5W 1,000 ML IV SCH (10:00)
[2020-10-22 10:27] LABS: BUN Blood Urea Nitrogen 7 mg/dL (7-18); Bicarbonate 27 mmol/L (21-32); Glucose Level 166 mg/dL (74-106); Potassium 4.7 mmol/L (3.5-5.1); Sodium Level 120 mmol/L (136-145)
[2020-10-22 10:49] VITALS: BMI 26.6
[2020-10-22] MEDS: METOCLOPRAMIDE 5 MG TAB PO SCH ×3 (13:23→21:00)
--- NOTE | 2020-10-22 13:33 | RAD REPORT ---
EXAM DESCRIPTION: CT - Head Brain Wo Cont - 10/22/2020 7:16 am CLINICAL HISTORY: The patient is 59 years old and is Female; htn, hyponatremia TECHNIQUE: Axial computed tomography images of the head/brain without intravenous contrast. Sagitt al and coronal reformatted images were created and reviewed. This CT exam was performed using one o r more of the following dose reduction techniques: automated exposure control, adjustment of the mA and/or kV according to patient size, and/or use of iterative reconstruction technique. COMPARISON: CT head August 29, 2020. FINDINGS: Brain: Unremarkable. No hemorrhage. No significant white matter disease. No edema. Ventricles: Unremarkable. No ventriculomegaly. Bones/joints: Unremarkable. No acute fracture. Soft tissues: Unremarkable. Sinuses: Left maxillary sinus mucosal thickening. Mastoid air cells: Unremarkable as visualized. No mastoid effusion. * A single impression for all exams can be found at the end of this report EXAM DESCRIPTION: CT Abdomen and Pelvis With Intravenous Contrast CLINICAL HISTORY: The patient is 59 years old and is Female; htn, hyponatremia TECHNIQUE: Axial computed tomography images of the abdomen and pelvis with intravenous contrast. S agittal and coronal reformatted images were created and reviewed. This CT exam was performed using one or more of the following dose reduction techniques: automated exposure control, adjustment of t he mA and/or kV according to patient size, and/or use of iterative reconstruction technique. COMPARISON: No relevant prior studies available. FINDINGS: Lung bases: Unremarkable. No mass. No consolidation. Mediastinum: Small hiatal hernia. ABDOMEN: Liver: 1.3 cm low-density lesion in the right liver which likely represents a cyst. Gallbladder and bile ducts: Unremarkable. No calcified stones. No ductal dilation. Pancreas: Unremarkable. No mass. No ductal dilation. Spleen: Unremarkable. No splenomegaly. Adrenals: Unremarkable. No mass. Kidneys and ureters: Simple cysts in the left kidney. ACR White Paper guidelines (Jodi, et al. JACR 2018; 15(2):264-273) suggest no follow-up is necessary. No hydronephrosis. Stomach and bowel: Unremarkable. No obstruction. No mucosal thickening. PELVIS: Appendix: No findings to suggest acute appendicitis. Bladder: Unremarkable. No mass. Reproductive: Unremarkable as visualized. ABDOMEN and PELVIS: Intraperitoneal space: Unremarkable. No free air. No significant fluid collection. Bones/joints: Disc space narrowing with degenerative endplate changes at L5-S1. No acute fracture. No dislocation. Soft tissues: Unremarkable. Vasculature: Unremarkable. No abdominal aortic aneurysm. Lymph nodes: Unremarkable. No enlarged lymph nodes. * A single impression for all exams can be found at the end of this report IMPRESSION: CT Head Without Intravenous Contrast: No acute intracranial abnormality. CT Abdomen and Pelvis With Intravenous Contrast: No acute findings in the abdomen or pelvis. Electronically signed by: Abundio Jennings MD 10/22/2020 3:31 AM CDT Due to temporary technical issues with the PACS/Fluency reporting system, reports are being signed by the in house radiologist without review as a courtesy to ensure prompt reporting. The interpreting r adiologist is fully responsible for the content of the report.
--- NOTE | 2020-10-22 13:35 | RAD REPORT ---
EXAM DESCRIPTION: CT - Abdomen Pelvis W Contrast - 10/22/2020 7:16 am CLINICAL HISTORY: The patient is 59 years old and is Female; htn, hyponatremia TECHNIQUE: Axial computed tomography images of the head/brain without intravenous contrast. Sagitt al and coronal reformatted images were created and reviewed. This CT exam was performed using one o r more of the following dose reduction techniques: automated exposure control, adjustment of the mA and/or kV according to patient size, and/or use of iterative reconstruction technique. COMPARISON: CT head August 29, 2020. FINDINGS: Brain: Unremarkable. No hemorrhage. No significant white matter disease. No edema. Ventricles: Unremarkable. No ventriculomegaly. Bones/joints: Unremarkable. No acute fracture. Soft tissues: Unremarkable. Sinuses: Left maxillary sinus mucosal thickening. Mastoid air cells: Unremarkable as visualized. No mastoid effusion. * A single impression for all exams can be found at the end of this report EXAM DESCRIPTION: CT Abdomen and Pelvis With Intravenous Contrast CLINICAL HISTORY: The patient is 59 years old and is Female; htn, hyponatremia TECHNIQUE: Axial computed tomography images of the abdomen and pelvis with intravenous contrast. Sagittal and coronal reformatted images were created and reviewed. This CT exam was performed usin g one or more of the following dose reduction techniques: automated exposure control, adjustment of the mA and/or kV according to patient size, and/or use of iterative reconstruction technique. COMPARISON: No relevant prior studies available. FINDINGS: Lung bases: Unremarkable. No mass. No consolidation. Mediastinum: Small hiatal hernia. ABDOMEN: Liver: 1.3 cm low-density lesion in the right liver which likely represents a cyst. Gallbladder and bile ducts: Unremarkable. No calcified stones. No ductal dilation. Pancreas: Unremarkable. No mass. No ductal dilation. Spleen: Unremarkable. No splenomegaly. Adrenals: Unremarkable. No mass. Kidneys and ureters: Simple cysts in the left kidney. ACR White Paper guidelines (Jodi, et al. JACR 2018; 15(2):264-273) suggest no follow-up is necessary. No hydronephrosis. Stomach and bowel: Unremarkable. No obstruction. No mucosal thickening. PELVIS: Appendix: No findings to suggest acute appendicitis. Bladder: Unremarkable. No mass. Reproductive: Unremarkable as visualized. ABDOMEN and PELVIS: Intraperitoneal space: Unremarkable. No free air. No significant fluid collection. Bones/joints: Disc space narrowing with degenerative endplate changes at L5-S1. No acute fracture. No dislocation. Soft tissues: Unremarkable. Vasculature: Unremarkable. No abdominal aortic aneurysm. Lymph nodes: Unremarkable. No enlarged lymph nodes. * A single impression for all exams can be found at the end of this report IMPRESSION: CT Head Without Intravenous Contrast: No acute intracranial abnormality. CT Abdomen and Pelvis With Intravenous Contrast: No acute findings in the abdomen or pelvis. Electronically signed by: Abundio Jennings MD 10/22/2020 3:31 AM CDT Due to temporary technical issues with the PACS/Fluency reporting system, reports are being signed by the in house radiologist without review as a courtesy to ensure prompt reporting. The interpreting r adiologist is fully responsible for the content of the report.
[2020-10-22 13:41] LABS: Potassium 4.1 mmol/L (3.5-5.1)
[2020-10-22] MEDS ORDERED: METOCLOPRAMIDE 5 MG TAB ONE ×2 (13:44→17:55)
[2020-10-22] MEDS ORDERED: ALPRAZOLAM 0.25 MG TABLET ONE (14:19)
[2020-10-22] MEDS: D5W 1,000 ML IV SCH ×2 (14:37→21:17)
[2020-10-22] MEDS ORDERED: DESMOPRESSIN 4 MCG/ML AMP IV ONE ×2 (14:45→23:45)
--- NOTE | 2020-10-22 17:49 | P.PN ---
Date of Service: 10/22/20 Patient seen and examined. Hyponatremia likely secondary to SIADH. Patient seen by nephrology who is assisting with management. Monitor BMP q.4 hrs.
[2020-10-22 18:34] LABS: Potassium 4.2 mmol/L (3.5-5.1)
[2020-10-22] MEDS ORDERED: ALPRAZOLAM 0.5 MG TABLET ONE (20:00)
[2020-10-22] MEDS ORDERED: METOCLOPRAMIDE 10 MG/2mL INJ ONE (21:14)
[2020-10-22] MEDS ORDERED: HYDRALAZINE HCL 20 MG/ML VIAL ONE (21:17)
[2020-10-22 22:05] LABS: Potassium 3.8 mmol/L (3.5-5.1)
[2020-10-22 23:22] LABS: Uric Acid 2.3 mg/dL (2.6-6.0)
[2020-10-23] MEDS: NICOTINE 21 MG/PAT TD SCH ×2 (01:00→09:00)
[2020-10-23] MEDS: LORazepam 2 MG/ML VIAL IV PRN ×3 (01:00→12:13)
[2020-10-23] MEDS ORDERED: ACETAMINOPHEN 500 MG TAB ONE ×2 (01:05→06:16)
[2020-10-23] MEDS ORDERED: NICOTINE 21 MG/PAT TD ONE (01:26)
[2020-10-23] MEDS ORDERED: LORazepam 2 MG/ML VIAL ONE ×3 (01:27→08:08)
[2020-10-23] MEDS ORDERED: DESMOPRESSIN 4 MCG/ML AMP ONE (01:58)
[2020-10-23 02:31] LABS: Potassium 3.7 mmol/L (3.5-5.1)
[2020-10-23] MEDS ORDERED: METOPROLOL TAR 50 MG TAB ONE (03:02)
--- NOTE | 2020-10-23 03:09 | CON ---
Date of Consultation: 10/22/2020 Chief Complaint: Hyponatremia study. History Of Present Illness: The patient is a 59-year-old woman with history of diabetes mellitus, diabetic gastroparesis, hypertension, hypothyroidism, chronic pain, anxiety with panic attacks, history of hepatitis. Patient was found to have severe hyponatremia when she had a workup done in the emergency room. She came to the hospital last night and was found to have a sodium level of 111, glucose 177, magnesium was 1.6. Patient was complaining of generalized weakness, abdominal pain, nausea and vomiting. She denies melena or hematemesis. She was admitted several months ago to the hospital for hyponatremia, sodium level at that time was 119, and the patient was instructed to avoid HCTZ. On previous occasion, the patient had hyponatremia related to HCTZ medication and she received a treatment for hyponatremia in the hospital with IV fluids. At this point, the patient is not sure if she was just taking HCTZ and this was treated with use of blood pressure control in combination with angiotensin receptor blockers. Past Medical History: Diabetes mellitus, hypothyroid, chronic pain, history of osteoarthritis, hypertension, hyperlipidemia, anxiety, hepatitis, alcoholic- induced seizures, thyroidectomy, plastic surgery of the breast, hernia repair. Family History: Mother had diabetes, cancer, hypertension, knee replacement, thyroid disease. Father had a heart disease, hypertension, and diabetes. Social History: Alcohol, she is using alcohol. She denies tobacco. Review of Systems: General: Denies fever and chills. Eyes: Denies vision changes. Ears, Nose, and Throat: Denies sore throat or earache. Respiratory: Denies PND or orthopnea. Cardiovascular: Denies palpitations or syncope. GI: Has nausea or vomiting. Denies melena or hematemesis. : Denies dysuria or hematuria. All other systems are reviewed and all are negative, except the patient was complaining of panic attack and persistent nausea despite treatment with antinausea medication. Physical Examination: General: Patient is alert, not in acute distress. Eyes: Anicteric sclerae. EOMI. Ears, Nose, Mouth, and Throat: Oral mucosa moist. No pallor. Neck: Supple. No bruits. Lungs: Diminished breath sounds at bases. Heart: S1, S2. Abdomen: Soft, benign. Extremities: No edema. Laboratory Data: WBC 10.7, hemoglobin 15.1, hematocrit 43.6, platelet count 597. Sodium 111, potassium 4.3, BUN 8, creatinine 0.7, glucose 177, magnesium 1.6, total bilirubin 0.6, lipase 118, AP 129. Impression And Plan: 1. Hyponatremia, hypoosmolar. Plan is to continue IV fluids, although sodium level was 111. Subsequently after several hours, recheck BMP showed sodium level overcorrecting to 119 and fluids were changed to D5W with DDAVP and had just correction of severe hyponatremia. The patient remains asymptomatic, likely patient had hyponatremia that was chronic, which may be due to HCTZ combination and pain-induced hyponatremia effect. The patient continues to have nausea and she will have Reglan and Zofran for nausea control. The patient has medication for anxiety control and pain control as needed. Continue to monitor closely. Electrolytes adjusted, treatment for hyponatremia. 2. Hypertension. Monitor blood pressure. Adjust medication. Avoid HCTZ. 3. Diabetes mellitus. Continue insulin. 4. History of alcohol. Continue thiamine. Further recommendation from primary team. MARLENI/TRAVIS Voice ID: [id number] Report ID: [id number] ROSANGELA
[2020-10-23] MEDS: D5W 1,000 ML IV SCH (03:57)
[2020-10-23] MEDS: ONDANSETRON 4 MG/2 ML VIAL IV PRN ×3 (04:59→13:30)
[2020-10-23] MEDS ORDERED: ONDANSETRON 4 MG/2 ML VIAL ONE ×3 (05:19→13:32)
[2020-10-23] MEDS: ACETAMINOPHEN 500 MG TAB PO PRN ×3 (06:12→21:50)
[2020-10-23 06:23] LABS: Hematocrit 31.9 % (36.0-45.0); MPV 6.5 fL (7.6-11.3); RBC Red Blood Cell Count 3.43 M/uL (3.86-4.86)
[2020-10-23 06:42] LABS: Potassium 3.5 mmol/L (3.5-5.1)
[2020-10-23] MEDS ORDERED: D5W 1,000 ML IV ONE (07:03)
[2020-10-23] MEDS: INSULIN -REGULAR HUMAN 50 UNIT/0.5 ML ML SQ SCH ×4 (07:30→21:00)
[2020-10-23] MEDS: METOCLOPRAMIDE 5 MG TAB PO SCH ×4 (07:30→21:48)
[2020-10-23] MEDS: ALPRAZOLAM 0.5 MG TABLET PO PRN ×3 (08:06→22:09)
[2020-10-23] MEDS: THIAMINE 200 MG/2 ML INJ IVP SCH (08:06)
[2020-10-23] MEDS ORDERED: THIAMINE 200 MG/2 ML INJ ONE (08:08)
[2020-10-23] MEDS ORDERED: ALPRAZOLAM 0.5 MG TABLET ONE (08:08)
[2020-10-23] MEDS ORDERED: METOCLOPRAMIDE 5 MG TAB ONE ×2 (08:09→10:20)
[2020-10-23] MEDS ORDERED: MORPHINE 2 MG/ML SYR ONE ×2 (08:09→13:32)
--- NOTE | 2020-10-23 08:51 | RAD REPORT ---
EXAM DESCRIPTION: US - Renal Ultrasound-Complete - 10/23/2020 12:39 am CLINICAL HISTORY: kidney cysts Flank pain COMPARISON: Abdomen Exam Limited dated 05/17/2020; Abdomen Pelvis W Contrast dated 10/22/2020 FINDINGS: Both kidneys are normal in size, shape and echotexture. The right kidney measures 11.1 x 5.9 x 5.7 cm. No hydronephrosis, focal mass or perinephric fluid. Sm all benign-appearing 9 mm cyst is present cortex right kidney. The left kidney measures 11.8 x 5.9 x 5.5 cm. No hydronephrosis, focal mass or perinephric fluid. The urinary bladder is incompletely distended without gross abnormality seen. IMPRESSION: Small benign-appearing right renal cysts, otherwise negative study.
[2020-10-23] MEDS ORDERED: THIAMINE 200 MG/2 ML INJ IVP SCH (09:00)
[2020-10-23] MEDS: MORPHINE 2 MG/ML SYR IV PRN ×2 (09:31→13:30)
--- NOTE | 2020-10-23 10:03 | P.PN ---
Subjective Date of Service: 10/23/20 Chief Complaint: hyponatremia Subjective: Other (o/n pulled IV out 2-3 times, patient reports restlessness, anxiety, couldn't get comfortable. reports only drinks 1/2 bud light every few days. has frequent panic attacks, takes "xanax up to three times/day") Review of Systems 10-point ROS is otherwise unremarkable Physical Examination - Vital Signs Temperature: 98.0 F Blood Pressure: 141/91 Pulse: 82 Respirations: 16 Pulse Ox (%): 95 Assessment & Plan Physician Review Additional Text: Physical Exam General: AAOx3, NAD HEENT: PERRL, normal conjunctiva, sclera anicteric Respiratory: Clear to auscultation bilaterally, Normal air movement, nonlabored respirations on room air Cardiovascular: Regular rate/rhythm, Normal S1 S2, no edema Gastrointestinal: Soft, nondistended, mild periumbilical tenderness Musculoskeletal: No joint tenderness Integumentary: No rashes Neurological: Normal affect, normal speech Problem list Acute on possibly chronic hyponatremia, likely secondary to SIADH Hypertension Hypothyroid Significant anxiety, with panic attacks on chronic benzodiazepines -received NS, but recheck of Na showed over-correction and was switched to D5W with DDAVP -Serum Na rise no more than 6-8 meq/24h to avoid ODS -symptoms have mostly improved -CT Head, Abd/Pelvis - negative for acute process -nephrology consulted for assistance with hyponatremia -pt with nausea as well, continue reglan and zofran -continues with significant anxiety. 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 -concern overnight for alcohol withdrawal, pt on withdrawal protocol. Continue thiamine -Continue home Synthroid -Continue sliding scale insulin Dispo: anticipate dc home in ~2 days Time Spent Managing Pts Care (In Minutes): 40
--- NOTE | 2020-10-23 10:03 | P.PN ---
Subjective Date of Service: 10/23/20 Chief Complaint: hyponatremia Subjective: Improving (she reports abdominal pain is resolved. Nausea is minimal.) Physical Examination - Vital Signs Temperature: 98.0 F Blood Pressure: 141/91 Pulse: 82 Respirations: 16 Pulse Ox (%): 95 - Physical Exam General: In no apparent distress HEENT: Atraumatic, Normocephalic Neck: Supple, JVD not distended Respiratory: Normal air movement Cardiovascular: No rubs, No murmurs Gastrointestinal: Soft and benign, Non-distended, No guarding Musculoskeletal: No clubbing Integumentary: No warmth Neurological: Normal tone Urinary: Other (no bladder distention) Assessment And Plan - Plan # Hypotonic, euvolemic, chronic, severe, symptomatic hyponatremia Corrected serum Na 120 as of 6am today Urine chemistry on 10/23/2020 showed high uOsm and high Rima consistent with high ADH state Contributing factors: 1. Appropriate ADH release from abd pain - d/c morphine; tylenol for mild pain; tramadol for mod pain 2. Appropriate ADH release from nausea - anti-emetic prn 3. Appropriate ADH release from severe anxiety disorder - continue benzos prn acutely; started on 10/23 on sertraline 50 mg po daily, inc dose q weekly until anxiety symptoms much improved 4. ? HCTZ use - she is unsure if she was on HCTZ at home; d/c HCTZ permanently 5. ? Prerenal state - urine can no longer showing prerenal state 6. Low solute intake - she only eats 1 meal/d at home; states she drinks beer although only occasionally; advised on importance of solid food intake, at least half a plate per meal TID BUN low normal, serum uric acid not low - no clear e/o underylying true SIADH or SLN Give Tolvaptan 15 mg po now; avoid strict oral fluid restriction while she is receiving tolvaptan Check lytes q6h Serum Na rise no more than 6-8 meq/24h to avoid ODS Long-term serum Na goal > 130 to minimize imbalance/fall risk Keep serum K at 4.0 or higher for prompt hyponatremia correction Avoid hypomagnesemia # Recurrent abd pain States pain has been on/off for the past year, triggered by food Lipase low LFT unremarkable CT scan of the abdomen and pelvis with IV contrast on 1620 was unremarkable R/o mesenteric ischemia - serum lactate on 10/23 borderline elevated R/o chronic pancreatitis # ETOH use CIWA protocol # Hypertension BP at goal Continue current hypertensive medication regimen # DM 2 Management per primary team
[2020-10-23 12:28] LABS: Potassium 4.1 mmol/L (3.5-5.1); Uric Acid 2.9 mg/dL (2.6-6.0)
[2020-10-23] MEDS ORDERED: TRAMADOL HCL 50 MG TAB PO PRN (12:37)
[2020-10-23] MEDS: SERTRALINE HCL 50 MG TAB PO SCH (12:40)
[2020-10-23] MEDS ORDERED: ALPRAZOLAM 0.25 MG TABLET ONE (13:37)
[2020-10-23 13:46] LABS: Urine Protein/Creatinine Ratio 0.28 ratio (<0.15)
[2020-10-23 14:36] LABS: Barbiturates NEGATIVE (NEGATIVE); Benzodiazepines POSITIVE (NEGATIVE); Cocaine NEGATIVE (NEGATIVE); METHAMPHETAM NEGATIVE (NEGATIVE); Methadone NEGATIVE (NEGATIVE); Opiates POSITIVE (NEGATIVE); Phencyclidine NEGATIVE (NEGATIVE); THC Cannibis NEGATIVE (NEGATIVE)
[2020-10-23 18:26] LABS: Potassium 3.9 mmol/L (3.5-5.1)
[2020-10-23] MEDS ORDERED: POTASSIUM CL SA 10 MEQ TAB PO ONE (20:07)
[2020-10-23] MEDS ORDERED: TOLVAPTAN 15 MG TABLET PO ONE (22:00)
[2020-10-24 06:29] LABS: Basophils % 0.3 % (0-1.3); Hematocrit 35.4 % (36.0-45.0); Lymphocytes % 29.2 % (15.3-44.8); MPV 6.7 fL (7.6-11.3); RBC Red Blood Cell Count 3.97 M/uL (3.86-4.86)
[2020-10-24 06:52] LABS: Albumin 3.9 g/dL (3.4-5.0); Bilirubin Total 0.5 mg/dL (0.2-1.0); Potassium 3.8 mmol/L (3.5-5.1); Protein, Total 7.2 g/dL (6.4-8.2)
[2020-10-24 06:55] LABS: Phosphorus 4.2 mg/dL (2.5-4.9)
[2020-10-24] MEDS: INSULIN -REGULAR HUMAN 50 UNIT/0.5 ML ML SQ SCH ×4 (07:30→20:56)
[2020-10-24] MEDS ORDERED: POTASSIUM CL SA 10 MEQ TAB PO ONE (07:40)
[2020-10-24] MEDS: NICOTINE 21 MG/PAT TD SCH (09:52)
[2020-10-24] MEDS: ALPRAZOLAM 0.5 MG TABLET PO PRN ×3 (09:53→20:53)
[2020-10-24] MEDS: METOCLOPRAMIDE 5 MG TAB PO SCH ×4 (09:53→20:53)
[2020-10-24] MEDS: SERTRALINE HCL 50 MG TAB PO SCH (09:53)
[2020-10-24] MEDS: THIAMINE 200 MG/2 ML INJ IVP SCH (09:53)
[2020-10-24 12:03] LABS: Potassium 4.6 mmol/L (3.5-5.1)
[2020-10-24] MEDS: SODIUM CHLORIDE 1 GM TAB PO SCH ×2 (13:08→20:53)
[2020-10-24] MEDS: ONDANSETRON 4 MG/2 ML VIAL IV PRN (13:21)
--- NOTE | 2020-10-24 14:12 | P.PN ---
Subjective Date of Service: 10/24/20 Chief Complaint: hyponatremia Subjective: Improving (feeling better, wanting to dc home, RN reports pt left room to smoke yesterday. sodium slightly improved, still low. denies abd pain) Review of Systems 10-point ROS is otherwise unremarkable Physical Examination - Vital Signs Temperature: 97.7 F Blood Pressure: 174/69 Pulse: 89 Respirations: 18 Pulse Ox (%): 97 Assessment & Plan Physician Review Additional Text: Physical Exam General: AAOx3, NAD, axnious HEENT: normal conjunctiva, sclera anicteric Respiratory: Clear to auscultation bilaterally, Normal air movement, nonlabored respirations on room air Cardiovascular: Regular rate/rhythm, Normal S1 S2, no edema Gastrointestinal: Soft, nondistended, nontender Musculoskeletal: No joint tenderness Neurological: Normal affect, normal speech Problem list Acute on possibly chronic hyponatremia, likely secondary to SIADH Hypertension Hypothyroid Significant anxiety, with panic attacks on chronic benzodiazepines -received NS, but recheck of Na showed over-correction and was switched to D5W with DDAVP -Serum Na rise no more than 6-8 meq/24h to avoid ODS -symptoms have improved/ mostly resolved -CT Head, Abd/Pelvis - negative for acute process -nephrology consulted for assistance with hyponatremia, started salt tabs / lasix today -continues with anxiety, continue home medications -Continue home Synthroid -Continue sliding scale insulin Dispo: anticipate dc home in ~1-2 days Time Spent Managing Pts Care (In Minutes): 35
--- NOTE | 2020-10-24 14:28 | PN ---
Date of Progress Note: 10/24/2020 Subjective: The patient was admitted with severe hyponatremia, multifactorial, secondary to pain, SS I, and nausea. The patient was started tolvaptan, received dose yesterday. Sodium is still on the l ower side. Physical Examination: Vital Signs: Blood pressure 174/69, pulse of 89, afebrile. Chest: Clear to auscultation. Heart: S1, S2. Regular. Abdomen: Soft, nontender. Extremities: No edema. Neurologic: Alert. No focality. No tremor. Laboratory Data: Sodium 122, potassium 3.8, bicarb 27, BUN 15, creatinine 0.6, calcium 8.7, phosphor us 4.2, magnesium of 2. Current Medications: The patient on include Zoloft, tolvaptan, metoclopramide, Zofran. Assessment And Plan: 1.Hyponatremia secondary to syndrome of inappropriate antidiuretic hormone secretion, multifactorial , secondary to pain, nausea, still on the lower side. Supported with lower uric acid, elevation in t he urine sodium and osmolality. I am going to resume Samsca and we will monitor the response for the patient. We will start the patient also on salt tablet and we will follow up lab. 2.Hypertension, not controlled. We will start the patient on amlodipine. 3.Diabetes as by primary. 4.Alcohol withdrawal. Follow up with primary. KEITH/TRAVIS Voice ID: [id number] Report ID: [id number]
[2020-10-24] MEDS: LORazepam 2 MG/ML VIAL IV PRN (15:49)
[2020-10-24] MEDS: RISPERIDONE 2 MG TABLET PO SCH ×2 (18:01→20:54)
[2020-10-24 20:22] LABS: Potassium 5.2 mmol/L (3.5-5.1)
[2020-10-24] MEDS ORDERED: RISPERIDONE 1 MG TABLET PO SCH (21:00)
[2020-10-24] MEDS: OXCARBAZEPINE 600 MG PO SCH (21:08)
[2020-10-24 23:37] VITALS: O2SAT 95
[2020-10-25 06:09] LABS: Albumin 3.6 g/dL (3.4-5.0); Bilirubin Total 0.3 mg/dL (0.2-1.0); Magnesium 2.3 mg/dL (1.8-2.4); Phosphorus 4.6 mg/dL (2.5-4.9); Potassium 4.9 mmol/L (3.5-5.1); Protein, Total 6.9 g/dL (6.4-8.2)
[2020-10-25 06:10] LABS: Absolute Lymphocytes (CBC) 2.6 K/uL (0.7-4.9); Basophils % 0.6 % (0-1.3); Hematocrit 33.2 % (36.0-45.0); Lymphocytes % 35.6 % (15.3-44.8); MPV 6.7 fL (7.6-11.3); RBC Red Blood Cell Count 3.69 M/uL (3.86-4.86)
[2020-10-25] MEDS: LORazepam 2 MG/ML VIAL IV PRN (06:29)
[2020-10-25] MEDS ORDERED: LEVOTHYROXINE SOD 0.137 MG TAB PO SCH (06:30)
[2020-10-25] MEDS ORDERED: LIOTHYRONINE 5 MCG PO SCH (06:30)
[2020-10-25] MEDS ORDERED: LEVOTHYROXINE SOD 0.05 MG TABLET PO SCH (06:30)
[2020-10-25] MEDS: INSULIN -REGULAR HUMAN 50 UNIT/0.5 ML ML SQ SCH ×2 (07:30→11:02)
[2020-10-25] MEDS: SERTRALINE HCL 50 MG TAB PO SCH (08:48)
[2020-10-25] MEDS: METOCLOPRAMIDE 5 MG TAB PO SCH ×2 (08:50→11:49)
[2020-10-25] MEDS: SODIUM CHLORIDE 1 GM TAB PO SCH (08:50)
[2020-10-25] MEDS: THIAMINE 200 MG/2 ML INJ IVP SCH (08:51)
[2020-10-25] MEDS: NICOTINE 21 MG/PAT TD SCH (08:51)
[2020-10-25] MEDS: RISPERIDONE 2 MG TABLET PO SCH (08:53)
[2020-10-25] MEDS: OXCARBAZEPINE 600 MG PO SCH (08:54)
[2020-10-25] MEDS ORDERED: FUROSEMIDE 20 MG TABLET PO SCH (09:00)
[2020-10-25] MEDS ORDERED: AMLODIPINE 10 MG TAB PO SCH (09:00)
[2020-10-25] MEDS ORDERED: LIOTHYRONINE SOD 5 MCG TAB PO SCH (09:00)
[2020-10-25] MEDS ORDERED: VENLAFAXINE HCL 100 MG PO SCH (09:00)
[2020-10-25] MEDS ORDERED: LEVOTHYROXINE SOD 0.075 MG TAB PO SCH (09:00)
[2020-10-25] MEDS: ALPRAZOLAM 0.5 MG TABLET PO PRN (10:04)
[2020-10-25 11:45] VITALS: TEMP 97.1
[2020-10-25 11:46] VITALS: BP 105/68
--- NOTE | 2020-10-25 14:07 | P.DS ---
Admission Date: 10/22/20 Discharge Date: 10/25/20 Disposition: ROUTINE DISCHARGE Discharge Condition: GOOD Reason for Admission: hyponatremia Consultations: Nephrology Dr. Crocker Procedures: CT abdomen/pelvis (10/22): CT head (10/22): IMPRESSION: CT Head Without Intravenous Contrast: No acute intracranial abnormality. CT Abdomen and Pelvis With Intravenous Contrast: No acute findings in the abdomen or pelvis. Renal ultrasound (10/23): FINDINGS: Both kidneys are normal in size, shape and echotexture. The right kidney measures 11.1 x 5.9 x 5.7 cm. No hydronephrosis, focal mass or perinephric fluid. Small benign-appearing 9 mm cyst is present cortex right kidney. The left kidney measures 11.8 x 5.9 x 5.5 cm. No hydronephrosis, focal mass or perinephric fluid. The urinary bladder is incompletely distended without gross abnormality seen. IMPRESSION: Small benign-appearing right renal cysts, otherwise negative study. Problem list Acute hyponatremia, secondary to SIADH/beer potomania Hypertension Hypothyroid Significant anxiety, with panic attacks on chronic benzodiazepines Nicotine dependence Brief History of Present Illness: 59 yo F with history of HTN, hypothyroidism, chronic hyponatremia, and anxiety who presents with severe abdominal pain and nausea beginning on Thursday. She says this has happened before but never this bad. She says symptoms are worse with eating too much, and improved with walking. Says she has been having BM daily. Says her symptoms are worse with her panic attacks. Na 111, cl 77. GFR 86. glu 177. Mg 1.6. alk phos 129. Hospital Course: Initially treated with normal saline, however sodium overcorrected and was switched to D5W. She had gradual improvement of her symptoms and sodium levels. She continued to have improvement off IV fluids and with treatment with salt tabs plus Lasix. On day of discharge she had resolution of her symptoms, and her sodium had improved to 128. Patient reported feeling back to her baseline and was requesting to be discharged home. She is discharged home with salt tablets twice daily, and Lasix. To resume her home medications. She is to follow-up with nephrology in approximately 2 weeks. Vital Signs/Physical Exam: Physical Exam General: AAOx3, NAD, anxious HEENT: normal conjunctiva, sclera anicteric Respiratory: Clear to auscultation bilaterally, Normal air movement, nonlabored respirations on room air Cardiovascular: Regular rate/rhythm, Normal S1 S2, no edema Gastrointestinal: Soft, nondistended, nontender Musculoskeletal: No joint tenderness Temp Pulse Resp BP Pulse Ox 97.1 F 80 16 105/68 96 10/25/20 11:43 10/25/20 11:43 10/25/20 11:43 10/25/20 11:43 10/25/20 11:43 Laboratory Data at Discharge: WBC 7.20 K/uL (4.3-10.9) 10/25/20 05:27 Hgb 11.6 g/dL (12.0-15.0) L 10/25/20 05:27 Hct 33.2 % (36.0-45.0) L 10/25/20 05:27 Plt Count 438 K/uL (152-406) H 10/25/20 05:27 Sodium 128 mmol/L (136-145) L 10/25/20 05:27 Potassium 4.9 mmol/L (3.5-5.1) 10/25/20 05:27 BUN 22 mg/dL (7-18) H 10/25/20 05:27 Creatinine 0.79 mg/dL (0.55-1.3) 10/25/20 05:27 Glucose 125 mg/dL (74-106) H 10/25/20 05:27 Uric Acid 2.9 mg/dL (2.6-6.0) 10/23/20 11:56 Phosphorus 4.6 mg/dL (2.5-4.9) 10/25/20 05:27 Magnesium 2.3 mg/dL (1.8-2.4) 10/25/20 05:27 Total Bilirubin 0.3 mg/dL (0.2-1.0) 10/25/20 05:27 AST 20 U/L (15-37) 10/25/20 05:27 ALT 39 U/L (12-78) 10/25/20 05:27 Alkaline Phosphatase 101 U/L (45-117) 10/25/20 05:27 Lipase 51 U/L (73-393) L 10/22/20 01:20 Home Medications: OXcarbazepine [Oxcarbazepine] 600 mg PO DAILY 02/23/20 Risperidone [Risperdal] 2 tab PO BID 02/23/20 Levothyroxine [Synthroid*] 137 mcg PO DAILY 10/24/20 Liothyronine Sodium [Cytomel] 5 mcg PO DAILY 10/24/20 Trazodone [Desyrel*] 100 mg PO BEDTIME 10/24/20 Venlafaxine HCl [Effexor] 100 mg PO BID 10/24/20 Amlodipine [Norvasc] 2.5 mg PO DAILY 30 Days #30 tab 10/25/20 Furosemide [Lasix*] 20 mg PO DAILY 30 Days #30 tab 10/25/20 Sodium Chloride Tab [Sodium Chloride*] 1 gm PO BID 30 Days #60 tab 10/25/20 New Medications: Furosemide [Lasix*] 20 mg PO DAILY 30 Days #30 tab Amlodipine [Norvasc] 2.5 mg PO DAILY 30 Days #30 tab Sodium Chloride Tab [Sodium Chloride*] 1 gm PO BID 30 Days #60 tab Physician Discharge Instructions: You are found to have low sodium. You are treated with salt tablets and Lasix. He had improvement of your sodium in your symptoms. You are discharged with these medications. You are also noted to have uncontrolled high blood pressure. This improved with starting amlodipine and Lasix. You are discharged home with these medications Follow-up with nephrology in 2 weeks. You will need to have blood work prior to this appointment to check your sodium levels Follow-up with your PCP in 3-5 days Otherwise, continue your home medications as previously prescribed. Diet: AHA Activity: Ad guzman Followup: Candi Crocker MD [ACTIVE - CAN ADMIT] - NONE,NONE [Primary Care Provider] - Time spent managing pt's care (in minutes): 40
--- NOTE | 2020-10-25 15:19 | PN ---
Date of Progress Note: 10/25/2020 CANCELED DICTATION Subjective: The patient was admitted for hypernatremia. Physical Examination: Vital Signs: Blood pressure 127/54, pulse of 81, afebrile. The patient had good urine output of 110 0. Chest: Clear to auscultation. Heart: S1, S2. Regular. Abdomen: Soft, nontender. Extremities: No edema. Neurologic: Alert. No focality. No tremor. Laboratory Data: WBC 5.8, H and H 12.3/38. Sodium 150, potassium. DICTATION ENDS HERE EKITH/TRAVIS Voice ID: [id number] Report ID: [id number]
--- NOTE | 2020-10-25 15:25 | PN ---
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 The patient was started on tolvaptan and then we switched her to salt tablet with Lasix. e patient tolerated well. Physical Examination: Vital Signs: When I saw the patient; blood pressure 105/68, pulse of 80, afebrile. Chest: Clear to auscultation. Heart: S1, S2. Regular. Abdomen: Soft, nontender. Extremities: No edema. Neuro: No tremor. Laboratory Data: WBC 7.2, H and H 11.6/33.2. Sodium 128, potassium 4.9, bicarb 26, BUN 22, creatini ne 0.7, calcium of 9. Current Medications: The patient on include; 1.Nicotine. 2.Amlodipine. 3.Tylenol. 4.Zoloft. 5.Lasix 20. 6.Salt tablet 1 g b.i.d. 7.Tramadol. Assessment And Plan: 1.Hyponatremia, secondary multifactorial, secondary to SIADH/beer potomania, recovered, corrected ap propriately. I am going to continue salt tablet 1 g b.i.d. with Lasix 20. The patient cleared from the Renal standpoint for discharge planning to follow up in the office in 2-3 weeks with chemistry an d urine electrolytes. 2.Hyperkalemia, status post treatment, recovered, resolved. 3.Hypertension, controlled, optimal. Continue current treatment. ZORAN Voice ID: [id number] Report ID: [id number]
== END 2020-10-25 13:27 | disposition home or self-care (01) | DRG 644 ==
LOC: ER 00:43 → ERHOLD 05:30 → 2ND 10-23 17:03
PROVIDERS: ADMIT Internal Medicine; ATTEND Internal Medicine
DX: E22.2 Syndrome of inappropriate secretion of antidiuretic hormone (principal); F10.239 Alcohol dependence with withdrawal, unspecified; I10 Essential (primary) hypertension; E03.9 Hypothyroidism, unspecified; F41.9 Anxiety disorder, unspecified; E87.5 Hyperkalemia; F17.210 Nicotine dependence, cigarettes, uncomplicated; Z20.822 Contact with and (suspected) exposure to COVID-19
CPT/HCPCS: 36415; 70450; 74177; 76770; 80048; 80051; 80053; 80076; 80307; 80320; 81003; 81015; 82533; 82570; 82947; 83605; 83690; 83735; 83930; 83935; 84100; 84132; 84156; 84300; 84439; 84443; 84484; 84550; 85025; 85027; 93005; 94760; 96361; 96365; 96375; 99285; J0360; J2270; J2405; J2597; J2765; J3411; J3475; J7030; J8499; Q9967; U0003

== ENCOUNTER 2020-11-12 09:51 | Emergency (ER) | payer OTHER ==
--- OUTSIDE RECORDS SUMMARY | 2020-11-12 09:54 | XMS REPORT | Continuity of Care Document ---
:1960 Author Organization [facility] t Address [address] [place] [address] Dr. Huang. [address] [place] [address] Care Team Providers Name Role Phone Doctor [...] ID 2020-07-25 2020-07-25 Orders Doctor FISH [id number] 00:00:00 00:00:00 Only UnassignedBK [id number] [place] [facility] [phone] [id number] 2018-10-21 2018-10-21 Telephone TURNER Back [id number] 00:00:00 00:00:00 Natacha Nguyen [id number] [place] [id number] [facility] [phone] [facility] [address] [facility] Results This patient has no known results.
--- NOTE | 2020-11-12 11:28 | RAD REPORT ---
EXAM DESCRIPTION: CT - Abdomen Pelvis W Contrast - 11/12/2020 11:06 am CLINICAL HISTORY: Abdominal pain COMPARISON: October 2020. TECHNIQUE: Computed axial tomography of the abdomen pelvis was obtained. 100 cc Isovue-300 was admin istered intravenously. Oral contrast was not requested which limits evaluation of bowel. All CT scans are performed using dose optimization technique as appropriate and may include automated exposure control or mA/KV adjustment according to patient size. FINDINGS: Small hepatic cyst Spleen, pancreas, adrenal and kidneys appear unremarkable. There is no evidence of diverticulitis. Normal appendix paragraphs small hiatal hernia IMPRESSION: No acute abnormality is displayed.
[2020-11-12 11:38] LABS: ALT/SGPT 33 U/L (12-78); AST/SGOT 20 U/L (15-37); Albumin 4.3 g/dL (3.4-5.0); Alkaline Phosphatase 116 U/L (45-117); BUN Blood Urea Nitrogen 17 mg/dL (7-18); Bicarbonate 29 mmol/L (21-32); Bilirubin Direct < 0.1 mg/dL (0-0.2); Bilirubin Total 0.2 mg/dL (0.2-1.0); Glucose Level 159 mg/dL (74-106); Lipase 68 U/L (73-393); Protein, Total 8.1 g/dL (6.4-8.2); Sodium Level 135 mmol/L (136-145)
[2020-11-12 12:21] LABS: Urine Blood Negative (Negative); Urine Glucose Negative (Negative); Urine Protein Negative (Negative); Urine Specific Gravity 1.015 (1.005-1.030)
[2020-11-12 13:01] LABS: Absolute Lymphocytes (CBC) 2.2 K/uL (0.7-4.9); Basophils % 0.6 % (0-1.3); Hematocrit 40.6 % (36.0-45.0); MPV 6.8 fL (7.6-11.3)
[2020-11-12] MEDS ORDERED: MORPHINE 2 MG/ML SYR ONE (13:12)
[2020-11-12] MEDS ORDERED: KETOROLAC 30 MG/ML INJ ONE (13:37)
[2020-11-12] MEDS ORDERED: PROMETHAZINE INJ 25 MG/ML AMP ONE (13:37)
[2020-11-12] MEDS ORDERED: cloNIDine HCL 0.1 MG TAB ONE (13:52)
--- NOTE | 2020-11-12 15:17 | ER ---
Nurse's Notes [facility] Name: Jaimie Amanda Age: 59 yrs Sex: Female : 1960 Arrival Date: 11/12/2020 Time: 09:57 Bed 13 Private MD: Diagnosis: Abdominal pain, Generalized Presentation: 11/12 10:12 Chief complaint: Patient states: Abd pain for 3 days. + nausea. No fever. Was admitted ll1 3 weeks ago for the same, and had low sodium at that time. Coronavirus screen: Vaccine status: Patient reports receiving the 2nd dose of the covid vaccine. Client denies travel out of the [place] in the last 14 days. At this time, the client does not indicate any symptoms associated with coronavirus-19. Ebola Screen: Patient denies travel to an Ebola-affected area in the 21 days before illness onset. Initial Sepsis Screen: Does the patient meet any 2 criteria? No. Patient's initial sepsis screen is negative. Does the patient have a suspected source of infection? Yes: Acute abdominal pain. Risk Assessment: Do you want to hurt yourself or someone else? Patient reports no desire to harm self or others. Onset of symptoms was November 10, 2020. 10:12 Method Of Arrival: Ambulatory [facility] 10:12 Acuity: ZHEN 3 1 Triage Assessment: 12:33 General: Appears in no apparent distress. Behavior is calm, cooperative, crying. Pain: [facility] Complains of pain in abdomen Pain currently is 10 out of 10 on a pain scale. Alleviated by Aggravated by. GI: Reports lower abdominal pain, upper abdominal pain, nausea, vomiting. Historical: - Allergies: 10:11 Nitroglycerin; ll1 - PMHx: 10:11 Anxiety; Diabetes - NIDDM; etoh abuse; Hypothyroidism; Hypertension; Depression; ll1 Seizures; - PSHx: 10:14 None; ll1 - Immunization history:: Client reports receiving the 2nd dose of the Covid vaccine, Flu vaccine is not up to date. - Social history:: Smoking status: Patient reports the use of cigarette tobacco products, smokes one-half pack cigarettes per day. Screenin:15 Abuse screen: Denies threats or abuse. Nutritional screening: No deficits noted. ll1 Tuberculosis screening: No symptoms or risk factors identified. 12:40 Fall Risk IV access (20 points). [facility] Assessment: 12:36 General: Appears in no apparent distress. kh1 12:39 GI: Abd is soft Abdomen is tender to palpation X 4 quads. [facility] Vital Signs: 10:12 Resp 18; Weight 74.84 kg; Height 5 ft. 7 in. (170.18 cm); Pain 10/10; ll1 10:16 BP 177 / 102; Pulse 106; Resp 20; Temp 98.9; Pulse Ox 95% ; ll1 12:33 BP 178 / 88; Pulse 64; Resp 20; Temp 98.5(TE); Pulse Ox 95% on R/A; kh1 15:00 BP 177 / 82; Pulse 98; Resp 20; Pulse Ox 97% on R/A; kg 15:15 BP 174 / 96; Pulse 97; Resp 20; Pulse Ox 98% on R/A; kg 15:30 BP 163 / 94; Pulse 97; Resp 20; Pulse Ox 97% ; kg 10:12 Body Mass Index 25.84 (74.84 kg, 170.18 cm) 1 ED Course: 09:57 Patient arrived in ED. as 10:11 Arm band placed on. ll1 10:14 Triage completed. ll1 10:17 Emma Hussein FNP-C is [facility]. kb 10:17 Diego Ramirez MD is Attending Physician. kb 11:06 CT Abd/Pelvis - IV Contrast Only In Process Unspecified. EDMS 11:38 Karla Perea is Primary Nurse. kh1 11:39 CBC with Diff Sent. kh1 12:37 Inserted saline lock: 22 gauge in left antecubital area, using aseptic technique. kh1 12:37 No provider procedures requiring assistance completed. kh1 12:40 Patient has correct armband on for positive identification. Placed in gown. Bed in low kh1 position. Call light in reach. Side rails up X 1. 12:57 CBC with Diff Sent. [facility] Administered Medications: 12:20 Drug: Zofran (Ondansetron) 4 mg Route: IVP; Site: left antecubital; kh1 15:36 Follow up: Response: No adverse reaction kg 12:50 Drug: morphine 2 mg Route: IVP; Site: left antecubital; kh1 15:36 Follow up: Response: No adverse reaction; Pain is decreased kg 13:00 Drug: cloNIDine 0.2 mg Route: PO; kh1 15:35 Follow up: Response: No adverse reaction kg 13:20 Drug: Ketorolac 15 mg Route: IVP; Site: left antecubital; kh1 15:35 Follow up: Response: No adverse reaction kg 13:21 Drug: Phenergan (promethazine) 6.25 mg Route: IVP; Site: left antecubital; kh1 15:36 Follow up: Response: No adverse reaction kg Outcome: 15:16 Discharge ordered by . dennis 15:37 Patient left the ED. kg Signatures: Dispatcher [employer] EDWI Emma Hussein, [employer] SERVICE HELPER-Ada Medina Lynsay RN RN [facility] Michelle Brock RN RN kg Karla Perea [facility] Corrections: (The following items were deleted from the chart) 10:16 10:12 Chief complaint: Patient states: Abd pain for 3 days. + nausea. No fever. [place] [id number] 15:09 13:55 CORONAVIRUS+MR.LAB.ELIAZAR drawn and sent. [address]
--- NOTE | 2020-11-12 15:17 | EDPHYS ---
Physician Documentation [facility] Name: Jaimie Amanda Age: 59 yrs Sex: Female : 1960 Arrival Date: 11/12/2020 Time: 09:57 Bed 13 Private MD: COSTA Physician Diego Ramirez HPI: 11/12 10:32 This 59 yrs old Female presents to ER via Ambulatory with complaints of kb Abdominal Problem. 10:32 The patient presents with abdominal pain in the periumbilical area. Onset: The kb symptoms/episode began/occurred 3 week(s) ago. The symptoms do not radiate. Associated signs and symptoms: Pertinent positives: nausea, Pertinent negatives: constipation, diarrhea, fever, vomiting. The symptoms are described as constant. Modifying factors: The symptoms are alleviated by nothing, the symptoms are aggravated by nothing. Severity of pain: At its worst the pain was moderate in the emergency department the pain is unchanged. The patient has not experienced similar symptoms in the past. The patient has not recently seen a physician. Pt reports abd pain for 3 weeks with intermittent nausea. States she came today because she couldn't take the pain any more. . Historical: - Allergies: 10:11 Nitroglycerin; ll1 - PMHx: 10:11 Anxiety; Diabetes - NIDDM; etoh abuse; Hypothyroidism; Hypertension; Depression; ll1 Seizures; - PSHx: 10:14 None; ll1 - Immunization history:: Client reports receiving the 2nd dose of the Covid vaccine, Flu vaccine is not up to date. - Social history:: Smoking status: Patient reports the use of cigarette tobacco products, smokes one-half pack cigarettes per day. ROS: 10:31 Constitutional: Negative for fever, chills, and weight loss. kb 10:31 Abdomen/GI: Positive for abdominal pain, nausea, Negative for vomiting, diarrhea, constipation. 10:31 All other systems are negative. Exam: 10:31 Constitutional: This is a well developed, well nourished patient who is awake, alert, kb and in no acute distress. Head/Face: Normocephalic, atraumatic. ENT: Moist Mucous membranes Cardiovascular: Regular rate and rhythm with a normal S1 and S2. No gallops, murmurs, or rubs. No pulse deficits. Respiratory: Respirations even and unlabored. No increased work of breathing, no retractions or nasal flaring. Skin: Warm, dry with normal turgor. Normal color. MS/ Extremity: Pulses equal, no cyanosis. Neurovascular intact. Full, normal range of motion. Neuro: Awake and alert, GCS 15, oriented to person, place, time, and situation. Moves all extremities. Normal gait. Psych: Awake, alert, with orientation to person, place and time. Behavior, mood, and affect are within normal limits. 10:31 Abdomen/GI: Inspection: abdomen appears normal, Bowel sounds: normal, in all quadrants, Palpation: soft, in all quadrants, moderate abdominal tenderness, in the umbilical area. Vital Signs: 10:12 Resp 18; Weight 74.84 kg; Height 5 ft. 7 in. (170.18 cm); Pain 10/10; ll1 10:16 BP 177 / 102; Pulse 106; Resp 20; Temp 98.9; Pulse Ox 95% ; ll1 12:33 BP 178 / 88; Pulse 64; Resp 20; Temp 98.5(TE); Pulse Ox 95% on R/A; kh1 15:00 BP 177 / 82; Pulse 98; Resp 20; Pulse Ox 97% on R/A; kg 15:15 BP 174 / 96; Pulse 97; Resp 20; Pulse Ox 98% on R/A; kg 15:30 BP 163 / 94; Pulse 97; Resp 20; Pulse Ox 97% ; kg 10:12 Body Mass Index 25.84 (74.84 kg, 170.18 cm) ll1 MDM: 10:17 Patient medically screened. kb 10:31 Data reviewed: vital signs, nurses notes. Data interpreted: Pulse oximetry: on room air kb is 95 %. Interpretation: normal. 13:53 ED course: Pt requested clonidine 0.2mg for blood pressure. States that is what she kb takes at home. 15:18 Counseling: I had a detailed discussion with the patient and/or guardian regarding: the kb historical points, exam findings, and any diagnostic results supporting the discharge/admit diagnosis, lab results, radiology results, the need for outpatient follow up, a family practitioner, a high density press operator, to return to the emergency department if symptoms worsen or persist or if there are any questions or concerns that arise at home. ED course: Pt states she wants to leave. Does not want to wait any longer. States her mom is waiting outside to take her home. Educated to follow up with pcp and/or GI. 11/12 10:18 Order name: Basic Metabolic Panel; Complete Time: 11:40 kb 11/12 10:18 Order name: CBC with Diff; Complete Time: 13:09 kb 11/12 10:18 Order name: Hepatic Function; Complete Time: 11:40 kb 11/12 10:18 Order name: Lipase; Complete Time: 11:40 kb 11/12 11:14 Order name: CREATININE WHOLE BLOOD; Complete Time: 11:15 EDMS 11/12 12:21 Order name: Urine Dipstick-Ancillary; Complete Time: 12:24 EDMS 11/12 10:18 Order name: IV Saline Lock; Complete Time: 12:58 kb 11/12 10:18 Order name: CT Abd/Pelvis - IV Contrast Only; Complete Time: 11:35 kb 11/12 10:18 Order name: Labs collected and sent; Complete Time: 11:39 kb Administered Medications: 12:20 Drug: Zofran (Ondansetron) 4 mg Route: IVP; Site: left antecubital; kh1 15:36 Follow up: Response: No adverse reaction kg 12:50 Drug: morphine 2 mg Route: IVP; Site: left antecubital; kh1 15:36 Follow up: Response: No adverse reaction; Pain is decreased kg 13:00 Drug: cloNIDine 0.2 mg Route: PO; kh1 15:35 Follow up: Response: No adverse reaction kg 13:20 Drug: Ketorolac 15 mg Route: IVP; Site: left antecubital; kh1 15:35 Follow up: Response: No adverse reaction kg 13:21 Drug: Phenergan (promethazine) 6.25 mg Route: IVP; Site: left antecubital; kh1 15:36 Follow up: Response: No adverse reaction kg Disposition: 11/13 08:43 Co-signature as Attending Physician, Diego Ramirez MD I agree with the assessment and hannah plan of care. Disposition Summary: 11/12/20 15:16 Discharge Ordered Location: Home kb Condition: Stable kb Diagnosis - Abdominal pain, Generalized kb Followup: kb - With: Emergency Department - When: As needed - Reason: Worsening of condition Followup: kb - With: Private Physician - When: 2 - 3 days - Reason: Recheck today's complaints, Continuance of care, Re-evaluation by your physician Discharge Instructions: - Discharge Summary Sheet kb - Abdominal Pain, Adult, [id number] kb Forms: - Medication Reconciliation Form kb - Thank You Letter kb - Antibiotic Education kb - Prescription Opioid Use kb Prescriptions: - Zofran 4 mg Oral Tablet - take 1 tablet by ORAL route every 6 hours As needed; 20 tablet; Refills: 0, kb Product Selection Permitted - dicyclomine 20 mg Oral Tablet - take 1 tablet by ORAL route every 6 hours As needed; 20 tablet; Refills: 0, kb Product Selection Permitted Signatures: Dispatcher [employer] Emma Navarrete, INVESTIGATIONS CONSULTANT-C INVESTIGATIONS CONSULTANT-Ckb Diego Ramirez MD MD cha Lewis, Lynsay RN RN 1 Karla Perea [facility] Michelle Brock RN kg Corrections: (The following items were deleted from the chart) 11/12 14:51 13:10 Counseling: I had a detailed discussion with the patient and/or guardian regarding: the historical points, exam findings, and any diagnostic results supporting the discharge/admit diagnosis, lab results, radiology results, the need for outpatient follow up, a family practitioner, to return to the emergency department if symptoms worsen or persist or if there are any questions or concerns that arise at home, 15:09 13:14 CORONAVIRUS+MR.LAB.BRZ ordered. [facility]
[2020-11-12 15:46] VITALS: TEMP 98.5
[2020-11-12 15:49] VITALS: BP 163/94; O2SAT 97
== END 2020-11-12 15:37 | disposition home or self-care (01) ==
LOC: ER 09:51
DX: R10.84 Generalized abdominal pain (principal); Z20.822 Contact with and (suspected) exposure to COVID-19
CPT/HCPCS: 85025; 80048; 36415; 82565; 80076; 81003; 83690; 74177; 96375; 96374; 99284; U0003; Q9967; J2550; J2270

== ENCOUNTER 2020-12-01 12:36 | Emergency (ER) | payer OTHER ==
[2020-12-01 13:26] LABS: Absolute Lymphocytes (CBC) 2.4 K/uL (0.7-4.9); Basophils % 1.5 % (0-1.3); Hematocrit 41.5 % (36.0-45.0); Lymphocytes % 27.4 % (15.3-44.8); MPV 6.6 fL (7.6-11.3); RBC Red Blood Cell Count 4.48 M/uL (3.86-4.86)
[2020-12-01] MEDS ORDERED: ONDANSETRON 4 MG/2 ML VIAL ONE (13:26)
[2020-12-01] MEDS ORDERED: MORPHINE 4 MG/ML SYR ONE (13:26)
[2020-12-01] MEDS ORDERED: NA CHLORIDE 0.9% 1,000 ML ONE (13:27)
[2020-12-01 14:08] LABS: ALT/SGPT 44 U/L (12-78); AST/SGOT 16 U/L (15-37); Albumin 4.8 g/dL (3.4-5.0); Alkaline Phosphatase 129 U/L (45-117); BUN Blood Urea Nitrogen 17 mg/dL (7-18); Bicarbonate 27 mmol/L (21-32); Bilirubin Direct < 0.1 mg/dL (0-0.2); Bilirubin Total 0.1 mg/dL (0.2-1.0); Glucose Level 121 mg/dL (74-106); Lipase 82 U/L (73-393); Protein, Total 8.6 g/dL (6.4-8.2); Sodium Level 133 mmol/L (136-145)
--- NOTE | 2020-12-01 14:35 | RAD REPORT ---
EXAM DESCRIPTION: CTAbdomen Pelvis W Contrast - 12/01/2020 2:24 pm CLINICAL HISTORY: Abdominal pain. ABD PAIN COMPARISON: Abdomen Pelvis W Contrast dated 11/12/2020; Abdomen Pelvis W Contrast dated 10/22/2020; Abdomen Pelvis W Contrast dated 05/12/2020; Abdomen Pelvis W Contrast dated 02/22/2020 TECHNIQUE: Biphasic CT imaging of the abdomen and pelvis was performed with 100 ml non-ionic IV cont rast. All CT scans are performed using dose optimization technique as appropriate and may include automated exposure control or mA/KV adjustment according to patient size. FINDINGS: The lung bases are clear.Moderate hiatal hernia. Small low-density hepatic lesions are present most compatible with small benign cysts. No aggressive liver lesion or biliary dilatation. The spleen, pancreas, adrenal glands and kidneys are within aakash l limits. Small benign left renal cysts. No bowel obstruction, free air, free fluid or abscess. Moderate stool is present throughout the colon . The appendix is normal. No evidence of significant lymphadenopathy. No suspicious bony findings. IMPRESSION: No acute intra-abdominal or pelvic finding. Moderate hiatal hernia.
--- NOTE | 2020-12-01 14:51 | ER ---
Nurse's Notes [facility] Name: Jaimie Amanda Age: 59 yrs Sex: Female : 1960 Arrival Date: 12/01/2020 Time: 12:39 Bed 9 Private MD: Diagnosis: Abdominal pain, unspecified Presentation: 12/01 12:50 Chief complaint: Patient states: R sided abd pain since last night. Slight N/V, but ll1 none right now. No known fever. Has been admitted for abd pain and low NA before. Coronavirus screen: Vaccine status: Patient reports receiving the 2nd dose of the covid vaccine. Client denies travel out of the [place] in the last 14 days. At this time, the client does not indicate any symptoms associated with coronavirus-19. Ebola Screen: Patient denies travel to an Ebola-affected area in the 21 days before illness onset. Initial Sepsis Screen: Does the patient meet any 2 criteria? HR > 90 bpm. No. Patient's initial sepsis screen is negative. Does the patient have a suspected source of infection? Yes: Acute abdominal pain. Risk Assessment: Do you want to hurt yourself or someone else? Patient reports no desire to harm self or others. Onset of symptoms was November 30, 2020. 12:50 Method Of Arrival: Ambulatory ll1 12:50 Acuity: ZHEN 3 ll1 Historical: - Allergies: 12:50 Nitroglycerin; ll1 - PMHx: 12:50 Diabetes - NIDDM; Depression; Hypothyroidism; Hypertension; etoh abuse; Anxiety; ll1 Seizures; - Immunization history:: Client reports receiving the 2nd dose of the Covid vaccine. - Social history:: Smoking status: Patient reports the use of cigarette tobacco products, smokes one pack cigarettes per day. Screenin:51 Abuse screen: Denies threats or abuse. Nutritional screening: No deficits noted. ll1 Tuberculosis screening: No symptoms or risk factors identified. 12:57 Fall Risk No fall in past 12 months (0 pts). No secondary diagnosis (0 pts). IV access vg1 (20 points). Ambulatory Aid- None/Bed Rest/Nurse Assist (0 pts). Gait- Normal/Bed Rest/Wheelchair (0 pts) Mental Status- Oriented to own ability (0 pts). Total Rubio Fall Scale indicates No Risk (0-24 pts). Assessment: 12:54 General: Appears in no apparent distress. uncomfortable, Behavior is calm, cooperative. vg1 Pain: Complains of pain in right upper quadrant Pain currently is 9 out of 10 on a pain scale. Pain began 1 day ago. Noted to be guarding. Neuro: Level of Consciousness is awake, alert, obeys commands, Oriented to person, place, time, situation. Cardiovascular: Patient's skin is warm and dry. Respiratory: Airway is patent is compromised Respiratory effort is even, unlabored. GI: Bowel sounds present X 4 quads. Abdomen is tender to palpation in right upper quadrant Reports constipation, nausea, Patient currently denies diarrhea, vomiting. : Denies burning with urination, urinary frequency. EENT: No signs and/or symptoms were reported regarding the EENT system. Derm: Skin is intact, is healthy with good turgor. Musculoskeletal: Circulation, motion, and sensation intact. 13:36 Reassessment: Pt stated has not taken BP meds today. Pt takes Clonidine 0.3 mg PO PRN. vg1 Provider notified. 15:00 Reassessment: Patient appears in no apparent distress at this time. No changes from vg1 previously documented assessment. Patient and/or family updated on plan of care and expected duration. Pain level reassessed. Patient is alert, oriented x 3, equal unlabored respirations, skin warm/dry/pink. Vital Signs: 12:50 BP 219 / 100; Pulse 97; Resp 17; Temp 97.5; Pulse Ox 96% on R/A; Weight 76.2 kg; Height ll1 5 ft. 7 in. (170.18 cm); Pain 9/10; 13:30 BP 213 / 92; Pulse 87; Resp 16; Pulse Ox 100% ; vg1 15:00 BP 210 / 89; Pulse 80; Resp 16; Pulse Ox 100% ; vg1 12:50 Body Mass Index 26.31 (76.20 kg, 170.18 cm) ll1 ED Course: 12:39 Patient arrived in ED. mr 12:47 Blas Garay, UCHE is PHCP. pm1 12:47 Joseph Thompson MD is Attending Physician. pm1 12:48 Geneva Ramirez RN is Primary Nurse. vg1 12:50 Arm band placed on Patient placed in an exam room, on a stretcher. ll1 12:51 Triage completed. ll1 12:57 Patient has correct armband on for positive identification. Bed in low position. Call vg1 light in reach. Side rails up X 1. Adult w/ patient. 12:57 No provider procedures requiring assistance completed. vg1 13:10 Missed attempt(s): 20 gauge in right antecubital area. vg1 13:10 Initial lab(s) drawn, by me, sent to lab. vg1 13:28 Inserted saline lock: 22 gauge in left forearm, using aseptic technique. ,using aseptic vg1 technique. completed by Michelle BYRNE. 14:24 CT Abd/Pelvis - IV Contrast Only In Process Unspecified. EDMS 15:00 IV discontinued, intact, bleeding controlled, No redness/swelling at site. Pressure vg1 dressing applied. Administered Medications: 13:30 Drug: NS 0.9% 1000 ml Route: IV; Rate: 1000 ml; Site: left forearm; vg1 15:01 Follow up: IV Status: Completed infusion; IV Intake: 1000ml vg1 13:30 Drug: Zofran (Ondansetron) 4 mg Route: IVP; Site: left forearm; vg1 15:01 Follow up: Response: No adverse reaction vg1 13:32 Drug: morphine 4 mg Route: IVP; Site: left forearm; vg1 15:01 Follow up: Response: No adverse reaction; Marked relief of symptoms vg1 Intake: 15:01 IV: 1000ml; Total: 1000ml. vg1 Outcome: 14:50 Discharge ordered by MD. pm1 15:00 Discharged to home ambulatory, with family. vg1 15:00 Condition: good 15:00 Discharge instructions given to patient, Instructed on discharge instructions, follow up and referral plans. Demonstrated understanding of instructions, follow-up care. 15:00 Patient left the ED. vg1 Signatures: Dispatcher [employer] EDGA Radha Messina TanishaBlas, HEALTHCARE FINANCIAL ANALYST HEALTHCARE FINANCIAL ANALYST pm1 Geneva Ramirez RN RN vg1 Mikhail Otero RN RN ll1
--- NOTE | 2020-12-01 14:51 | EDPHYS ---
Physician Documentation [facility] Name: Jaimie Amanda Age: 59 yrs Sex: Female : 1960 Arrival Date: 12/01/2020 Time: 12:39 Bed 9 Private MD: ED Physician Joseph Thompson HPI: 12/01 13:01 This 59 yrs old Female presents to ER via Ambulatory with complaints of pm1 Abdominal Pain. 13:01 The patient presents with abdominal pain in the left upper quadrant. Onset: The pm1 symptoms/episode began/occurred today. The symptoms do not radiate. Associated signs and symptoms: none. Modifying factors: The symptoms are alleviated by nothing, the symptoms are aggravated by nothing. Severity of pain: in the emergency department the pain is unchanged. The patient has experienced similar episodes in the past, multiple times. The patient has not recently seen a physician. Historical: - Allergies: 12:50 Nitroglycerin; ll1 - PMHx: 12:50 Diabetes - NIDDM; Depression; Hypothyroidism; Hypertension; etoh abuse; Anxiety; ll1 Seizures; - Immunization history:: Client reports receiving the 2nd dose of the Covid vaccine. - Social history:: Smoking status: Patient reports the use of cigarette tobacco products, smokes one pack cigarettes per day. ROS: 13:01 Constitutional: Negative for fever, chills, and weight loss, Cardiovascular: Negative pm1 for chest pain, palpitations, and edema, Respiratory: Negative for shortness of breath, cough, wheezing, and pleuritic chest pain. 13:01 Back: Negative for injury and pain, MS/Extremity: Negative for injury and deformity, Skin: Negative for injury, rash, and discoloration, Neuro: Negative for headache, weakness, numbness, tingling, and seizure. 13:01 Abdomen/GI: Positive for abdominal pain, Negative for nausea, vomiting, and diarrhea. 13:01 All other systems are negative. Exam: 13:01 Constitutional: This is a well developed, well nourished patient who is awake, alert, pm1 and in no acute distress. Head/Face: Normocephalic, atraumatic. 13:01 Back: No spinal tenderness. No costovertebral tenderness. Full range of motion. Skin: Warm, dry with normal turgor. Normal color with no rashes, no lesions, and no evidence of cellulitis. MS/ Extremity: Pulses equal, no cyanosis. Neurovascular intact. Full, normal range of motion. 13:01 Eyes: Exam is negative for acute changes, Extraocular movements: no acute changes, Conjunctiva: no acute changes, no injection. 13:01 ENT: Mouth: no acute changes, Lips: normal, moist, Oral mucosa: normal, pink and intact, moist. 13:01 Cardiovascular: Exam negative for acute changes, Rate: normal, Rhythm: regular, Pulses: no pulse deficits are appreciated. 13:01 Respiratory: Exam negative for acute changes, respiratory distress, shortness of breath, Breath sounds: are clear throughout. 13:01 Abdomen/GI: Inspection: abdomen appears normal, Palpation: soft, in all quadrants, mild abdominal tenderness, in the right upper quadrant. 13:01 Neuro: Exam negative for acute changes, Orientation: is normal, Mentation: is normal, Motor: is normal, moves all fours. Vital Signs: 12:50 BP 219 / 100; Pulse 97; Resp 17; Temp 97.5; Pulse Ox 96% on R/A; Weight 76.2 kg; Height ll1 5 ft. 7 in. (170.18 cm); Pain 9/10; 13:30 BP 213 / 92; Pulse 87; Resp 16; Pulse Ox 100% ; vg1 15:00 BP 210 / 89; Pulse 80; Resp 16; Pulse Ox 100% ; vg1 12:50 Body Mass Index 26.31 (76.20 kg, 170.18 cm) ll1 MDM: 12:52 Patient medically screened. pm1 14:46 Data reviewed: vital signs. Data interpreted: Pulse oximetry: on room air is 100 %. pm1 Interpretation: normal. 14:46 Counseling: I had a detailed discussion with the patient and/or guardian regarding: the pm1 historical points, exam findings, and any diagnostic results supporting the discharge/admit diagnosis, lab results, radiology results, the need for outpatient follow up, to return to the emergency department if symptoms worsen or persist or if there are any questions or concerns that arise at home. 14:46 ED course: Patient reports that she is ready to go home. she does not want her blood pm1 pressure addressed here in the ER. Patient forgot to take her losartan this AM and has PRN clonidine at home. 12/01 12:54 Order name: Basic Metabolic Panel; Complete Time: 14:13 pm1 12/01 12:54 Order name: CBC with Diff; Complete Time: 13:32 pm1 12/01 12:54 Order name: Hepatic Function; Complete Time: 14:13 pm1 12/01 12:54 Order name: Lipase; Complete Time: 14:13 pm1 12/01 12:54 Order name: CT Abd/Pelvis - IV Contrast Only; Complete Time: 14:36 pm1 12/01 12:54 Order name: IV Saline Lock; Complete Time: 13:35 pm1 12/01 12:54 Order name: Labs collected and sent; Complete Time: 13:24 pm1 Administered Medications: 13:30 Drug: NS 0.9% 1000 ml Route: IV; Rate: 1000 ml; Site: left forearm; vg1 15:01 Follow up: IV Status: Completed infusion; IV Intake: 1000ml vg1 13:30 Drug: Zofran (Ondansetron) 4 mg Route: IVP; Site: left forearm; vg1 15:01 Follow up: Response: No adverse reaction vg1 13:32 Drug: morphine 4 mg Route: IVP; Site: left forearm; vg1 15:01 Follow up: Response: No adverse reaction; Marked relief of symptoms vg1 Disposition Summary: 12/01/20 14:50 Discharge Ordered Location: Home pm1 Problem: new pm1 Symptoms: have improved pm1 Condition: Stable pm1 Diagnosis - Abdominal pain, unspecified pm1 Followup: pm1 - With: Emergency Department - When: As needed - Reason: Worsening of condition Followup: pm1 - With: Private Physician - When: 2 - 3 days - Reason: Recheck today's complaints, Continuance of care, Re-evaluation by your physician Discharge Instructions: - Discharge Summary Sheet pm1 - Abdominal Pain, Adult pm1 Forms: - Medication Reconciliation Form pm1 - Thank You Letter pm1 - Antibiotic Education pm1 - Prescription Opioid Use pm1 Signatures: Dispatcher [employer] Blas Grimm NP [employer] pm1 Geneva Ramirez, RN RN vg1 Mikhail Otero RN RN ll1
[2020-12-01 15:40] VITALS: TEMP 97.5
[2020-12-01 15:42] VITALS: O2SAT 100
[2020-12-01 15:43] VITALS: BP 210/89
== END 2020-12-01 15:00 | disposition home or self-care (01) ==
LOC: ER 12:36
DX: R10.9 Unspecified abdominal pain (principal); F17.210 Nicotine dependence, cigarettes, uncomplicated
CPT/HCPCS: 96361; 85025; 80048; 36415; 80076; 83690; 74177; 96375; 96374; 99284; Q9967; J7030; J2405

== ENCOUNTER 2020-12-02 07:03 | Emergency (ER) | payer OTHER ==
[2020-12-02 07:42] LABS: Basophils % 0.5 % (0-1.3); Hematocrit 41.7 % (36.0-45.0); Lymphocytes % 19.3 % (15.3-44.8); MPV 6.7 fL (7.6-11.3); RBC Red Blood Cell Count 4.62 M/uL (3.86-4.86)
[2020-12-02 07:58] LABS: ALT/SGPT 37 U/L (12-78); AST/SGOT 15 U/L (15-37); Albumin 4.6 g/dL (3.4-5.0); Alkaline Phosphatase 99 U/L (45-117); BUN Blood Urea Nitrogen 11 mg/dL (7-18); Bicarbonate 21 mmol/L (21-32); Bilirubin Direct 0.1 mg/dL (0-0.2); Bilirubin Total 0.4 mg/dL (0.2-1.0); Glucose Level 200 mg/dL (74-106); Lipase 54 U/L (73-393); Potassium 3.7 mmol/L (3.5-5.1); Protein, Total 8.4 g/dL (6.4-8.2); Sodium Level 127 mmol/L (136-145)
[2020-12-02] MEDS ORDERED: ONDANSETRON 4 MG/2 ML VIAL ONE (07:59)
[2020-12-02] MEDS ORDERED: NA CHLORIDE 0.9% 1,000 ML ONE (07:59)
[2020-12-02] MEDS ORDERED: HYDROMORPHONE HCL 2 MG/ML inj ONE (07:59)
[2020-12-02 08:51] LABS: Urine Blood Trace-intact (Negative); Urine Glucose Negative (Negative); Urine Protein 1+ (Negative); Urine Specific Gravity 1.025 (1.005-1.030); Urine pH 8.5 (5.0-7.0)
[2020-12-02] MEDS ORDERED: LORazepam 2 MG/ML VIAL ONE (09:16)
--- NOTE | 2020-12-02 10:19 | ER ---
Nurse's Notes [facility] Name: Jaimie Amanda Age: 59 yrs Sex: Female : 1960 Arrival Date: 12/02/2020 Time: 07:05 Bed 19 Private MD: Diagnosis: Upper abdominal pain, unspecified Presentation: 12/02 07:09 Chief complaint: Patient states: Pt discharged at 0200. seen in ED for ABD pain. Pain ch5 returned 0500 waking Pt up. Coronavirus screen: Vaccine status: Patient reports receiving the 2nd dose of the covid vaccine. Ebola Screen: Patient negative for fever greater than or equal to 101.5 degrees Fahrenheit, and additional compatible Ebola Virus Disease symptoms Patient denies exposure to infectious person. Patient denies travel to an Ebola-affected area in the 21 days before illness onset. Initial Sepsis Screen: Does the patient meet any 2 criteria?. Initial Sepsis Screen: Does the patient have a suspected source of infection? No. Patient's initial sepsis screen is negative. Risk Assessment: Do you want to hurt yourself or someone else? Patient reports no desire to harm self or others. Onset of symptoms. 07:09 Method Of Arrival: Ambulatory [facility] 07:09 Method Of Arrival: Ambulatory [facility] 07:09 Acuity: ZHEN 3 ch5 Triage Assessment: 07:31 General: Appears distressed, uncomfortable, Behavior is anxious, inappropriate for age, tr6 restless. Pain: Complains of pain in RUQ. EENT: No deficits noted. Neuro: No deficits noted. Cardiovascular: Rhythm is sinus rhythm. Respiratory: No deficits noted. GI: Reports upper abdominal pain. : No deficits noted. Derm: Skin is diaphoretic. Musculoskeletal: No deficits noted. Historical: - Immunization history:: Adult Immunizations up to date. - Social history:: Smoking status: Patient reports the use of cigarette tobacco products, smokes one pack cigarettes per day. - Family history:: not pertinent. Screenin:18 Abuse screen: Denies threats or abuse. Denies injuries from another. Nutritional tr6 screening: No deficits noted. Tuberculosis screening: No symptoms or risk factors identified. Fall Risk None identified. Assessment: 07:23 Reassessment: MD Hidalgo at bedside. tr6 07:35 Reassessment: see triage assessment. tr6 07:35 GI: Bowel sounds present X 4 quads. Guarding noted. tr6 08:06 Reassessment:. tr6 08:08 GI: Abdomen is round obese, Last BM was December 01, 2020. Abdomen is tender to tr6 palpation in RUQ. 08:27 Reassessment: pt screaming from room "Help! I don't feel good!" RN at bedside to assess tr6 pt. Pt states that she feels very anxious. Pt normally takes meds for anxiety at home and did not take it today. Pt offered anxiety meds and would like them. 09:11 Reassessment: pt more calm after medication, resting comfortably in bed. tr6 09:54 Reassessment: Patient and/or family updated on plan of care and expected duration. Pain tr6 level reassessed. Patient is alert, oriented x 3, equal unlabored respirations, skin warm/dry/pink. pt sleeping, respirations even and unlabored. pt continues to be hypertensive as she has not taken her meds today. aware. Will continue to monitor. 10:18 Reassessment: pt reports that her pain is still there, but she would like to go home. tr6 MD Thompson informed and will reassess shortly Patient states symptoms have not improved. Vital Signs: 07:09 BP 180 / 85; Pulse 98; Resp 20; Temp 97.5(T); Pulse Ox 98% ; Weight 58.97 kg; Height 5 ch5 ft. 7 in. (170.18 cm); Pain 10/10; 07:13 BP 180 / 85; Pulse 98; Resp 20; Temp 97.5; Pulse Ox 98% ; Pain 10/10; ch5 07:15 BP 185 / 94; Pulse 87; Resp 18; Pulse Ox 100% on R/A; tr6 07:30 BP 170 / 90; Pulse 87; Resp 18; Pulse Ox 100% on R/A; tr6 08:00 BP 197 / 99; Pulse 86; Resp 18; Pulse Ox 100% on R/A; tr6 07:09 Body Mass Index 20.36 (58.97 kg, 170.18 cm) ch5 Vitals: 08:00 Cardiac Rhythm Assessment Regular Sinus rhythm. tr6 ED Course: 07:05 Patient arrived in ED. wm 07:13 Triage completed. [facility] 07:16 RamMadhavi cassidy RN is Primary Nurse. tr6 07:18 Resting quietly. Awaiting ED provider evaluation. tr6 07:18 Patient has correct armband on for positive identification. Placed in gown. Bed in low tr6 position. Call light in reach. Side rails up X 1. Pulse ox on. NIBP on. Door closed. Noise minimized. Visitors limited. Lights dimmed. Moved to private room. Warm blanket given. Diet: Patient is NPO. 07:18 No provider procedures requiring assistance completed. Patient maintains SpO2 tr6 saturation greater than 95% on room air. 07:25 Inserted saline lock: 20 gauge in left hand, using aseptic technique. Blood collected. tr6 07:29 Joseph Thompson MD is Attending Physician. ma2 07:35 Patient placed in an exam room, on a stretcher. tr6 10:18 Arsenio Smith MD is Referral Physician. ma2 10:20 IV discontinued, intact, bleeding controlled, No redness/swelling at site. Pressure tr6 dressing applied. Administered Medications: 07:37 Drug: Zofran (Ondansetron) 4 mg {Note: administered by CATY Miles} Route: IVP; Site: tr6 left hand; 08:55 Follow up: Response: No adverse reaction tr6 07:37 Drug: Dilaudid (HYDROmorphone) 1 mg {Note: administered by CATY Miles} Route: IVP; Site: tr6 left hand; 08:55 Follow up: Response: Pain is unchanged, physician notified tr6 07:37 Drug: NS 0.9% 1000 ml {Note: administered by CATY Miles} Route: IV; Rate: 1 bolus; Site: tr6 left hand; 08:55 Follow up: Response: No adverse reaction; IV Intake: 1000ml tr6 08:54 Drug: Ativan (LORazepam) 2 mg Route: IVP; Site: left hand; tr6 09:01 Follow up: Response: No adverse reaction; Pain is decreased; Anxiety decreased tr6 Intake: 08:55 IV: 1000ml; Total: 1000ml. tr6 Outcome: 10:18 Discharge ordered by . ma2 10:19 Discharged to home ambulatory, pt refused wheelchair at this time tr6 10:19 Condition: unchanged 10:19 Discharge instructions given to patient, Instructed on discharge instructions, follow up and referral plans. safety practices, Demonstrated understanding of instructions, follow-up care, medications. 10:36 Patient left the ED. tr6 Signatures: Joseph Thompson MD MD ma2 Madhavi Poole RN RN tr6 Monica Atkins Christopher, RN RN ch5 Corrections: (The following items were deleted from the chart) 07:13 07:13 PMHx: Depression; ch5 ch5 07: 07:13 PMHx: Anxiety; ch5 ch5 07: 07:13 PMHx: Hypothyroidism; ch5 ch5 07: 07:13 PMHx: Hypertension; ch5 ch5 07: 07:13 PMHx: etoh abuse; ch5 ch5 07:13 07:13 PMHx: Seizures; ch5 ch5 07:13 07:13 PMHx: Diabetes - NIDDM; ch5 ch5
--- NOTE | 2020-12-02 10:19 | EDPHYS ---
Physician Documentation [facility] Name: Jaimie Amanda Age: 59 yrs Sex: Female : 1960 Arrival Date: 12/02/2020 Time: 07:05 Bed 19 Private MD: ED Physician Joseph Thompson HPI: 12/02 10:17 This 59 yrs old Female presents to ER via Ambulatory with complaints of ma2 Abdominal Pain. 10:17 The patient presents with abdominal pain. Onset: The symptoms/episode began/occurred ma2 gradually, 2 day(s) ago. Associated signs and symptoms: Pertinent negatives: anorexia, constipation, dysuria, hematuria, vomiting. Severity of pain: At its worst the pain was mild in the emergency department the pain has improved. The patient has experienced similar episodes in the past. Historical: - Immunization history:: Adult Immunizations up to date. - Social history:: Smoking status: Patient reports the use of cigarette tobacco products, smokes one pack cigarettes per day. - Family history:: not pertinent. ROS: 10:17 Constitutional: Negative for fever, chills, and weight loss. ma2 10:17 All other systems are negative. Exam: 10:17 Constitutional: This is a well developed, well nourished patient who is awake, alert, ma2 and in no acute distress. Chest/axilla: Normal chest wall appearance and motion. Nontender with no deformity. No lesions are appreciated. Cardiovascular: Regular rate and rhythm with a normal S1 and S2. No gallops, murmurs, or rubs. Normal PMI, no JVD. No pulse deficits. Respiratory: Lungs have equal breath sounds bilaterally, clear to auscultation and percussion. No rales, rhonchi or wheezes noted. No increased work of breathing, no retractions or nasal flaring. Abdomen/GI: Soft, non-tender, with normal bowel sounds. No distension or tympany. No guarding or rebound. No evidence of tenderness throughout. Skin: Warm, dry with normal turgor. Normal color with no rashes, no lesions, and no evidence of cellulitis. MS/ Extremity: Pulses equal, no cyanosis. Neurovascular intact. Full, normal range of motion. Neuro: Awake and alert, GCS 15, oriented to person, place, time, and situation. Cranial nerves II-XII grossly intact. Motor strength 5/5 in all extremities. Sensory grossly intact. Cerebellar exam normal. Normal gait. Vital Signs: 07:09 BP 180 / 85; Pulse 98; Resp 20; Temp 97.5(T); Pulse Ox 98% ; Weight 58.97 kg; Height 5 ch5 ft. 7 in. (170.18 cm); Pain 10/10; 07:13 BP 180 / 85; Pulse 98; Resp 20; Temp 97.5; Pulse Ox 98% ; Pain 10/10; ch5 07:15 BP 185 / 94; Pulse 87; Resp 18; Pulse Ox 100% on R/A; tr6 07:30 BP 170 / 90; Pulse 87; Resp 18; Pulse Ox 100% on R/A; tr6 08:00 BP 197 / 99; Pulse 86; Resp 18; Pulse Ox 100% on R/A; tr6 07:09 Body Mass Index 20.36 (58.97 kg, 170.18 cm) ch5 MDM: 07:29 Patient medically screened. ma2 10:17 Differential diagnosis: gastritis, Hepatitis, Irritable bowel syndrome, non-specific ma2 abd pain. Data reviewed: vital signs, nurses notes. Counseling: I had a detailed discussion with the patient and/or guardian regarding: the historical points, exam findings, and any diagnostic results supporting the discharge/admit diagnosis, the presence of at least one elevated blood pressure reading (>120/80) during this emergency department visit, the need for outpatient follow up. Response to treatment: the patient's symptoms have resolved after treatment. 12/02 07:30 Order name: Basic Metabolic Panel; Complete Time: 08:55 nh12/02 07:30 Order name: CBC with Diff; Complete Time: 08:55 nh12/02 07:30 Order name: Hepatic Function; Complete Time: 08:55 [facility] 12/02 07:30 Order name: Lipase; Complete Time: 08:55 nh12/02 08:51 Order name: Urine Dipstick-Ancillary; Complete Time: 08:55 EDVT 12/02 07:30 Order name: IV Saline Lock; Complete Time: 07:31 12/02 07:30 Order name: Labs collected and sent; Complete Time: 07: nh12/02 07:30 Order name: Urine Dipstick-Ancillary (obtain specimen); Complete Time: 09:02 ma2 Administered Medications: 07:37 Drug: Zofran (Ondansetron) 4 mg {Note: administered by CATY Miles} Route: IVP; Site: tr6 left hand; 08:55 Follow up: Response: No adverse reaction tr6 07:37 Drug: Dilaudid (HYDROmorphone) 1 mg {Note: administered by CATY Miles} Route: IVP; Site: tr6 left hand; 08:55 Follow up: Response: Pain is unchanged, physician notified tr6 07:37 Drug: NS 0.9% 1000 ml {Note: administered by CATY Miles} Route: IV; Rate: 1 bolus; Site: tr6 left hand; 08:55 Follow up: Response: No adverse reaction; IV Intake: 1000ml tr6 08:54 Drug: Ativan (LORazepam) 2 mg Route: IVP; Site: left hand; tr6 09:01 Follow up: Response: No adverse reaction; Pain is decreased; Anxiety decreased tr6 Disposition Summary: 12/02/20 10:18 Discharge Ordered Location: Home ma2 Condition: Stable ma2 Diagnosis - Upper abdominal pain, unspecified ma2 Followup: ma2 - With: Arsenio Smith MD - When: Tomorrow - Reason: Continuance of care Discharge Instructions: - Discharge Summary Sheet ma2 - Abdominal Pain, Adult, Stme-rr-Igvn ma2 Forms: - Medication Reconciliation Form ma2 - Thank You Letter ma2 - Antibiotic Education ma2 - Prescription Opioid Use ma2 Signatures: Dispatcher [employer] Bel Valadez RN RN Joseph Thompson MD MD nh2 Madhavi Poole RN RN tr Sander Turcios RN RN ch5 Corrections: (The following items were deleted from the chart) 07:13 07:13 PMHx: Depression; ch5 ch5 07:13 07:13 PMHx: Anxiety; ch5 ch5 07:13 07:13 PMHx: Hypothyroidism; ch5 ch5 07:13 07:13 PMHx: Hypertension; ch5 ch5 07:13 07:13 PMHx: etoh abuse; ch5 ch5 07:13 07:13 PMHx: Seizures; ch5 ch5 07:13 07:13 PMHx: Diabetes - NIDDM; ch5 ch5
[2020-12-02 10:44] VITALS: TEMP 97.5
[2020-12-02 10:47] VITALS: O2SAT 100
[2020-12-02 10:50] VITALS: BP 197/99
== END 2020-12-02 10:36 | disposition home or self-care (01) ==
LOC: ER 07:03
DX: R10.10 Upper abdominal pain, unspecified (principal); F17.210 Nicotine dependence, cigarettes, uncomplicated
CPT/HCPCS: 85025; 80048; 36415; 80076; 81003; 83690; 96375; 96374; 99285; J1170; J7030; J2405

== ENCOUNTER 2021-03-06 18:03 | Emergency (ER) | payer OTHER ==
--- OUTSIDE RECORDS SUMMARY | 2021-03-06 18:05 | XMS REPORT | Continuity of Care Document ---
:1960 Author Organization [facility] t Address [address] [place] [address] Dr. Vasquez [address] [place] [address] Care Team Providers Name Role Phone Sharpless Primary Care Physician RADHA SIMPSON Attending Clinician Unavailable RADHA SIMPSON Attending Clinician Unavailable Doctor Unassigned, Name Attending Clinician Unavailable RAGHU Attending Clinician Unavailable Nazanin COATER HAND, A Attending Clinician Payers Payer Name Policy Type Policy Number Effective Date Expiration Date S flip [facility] [id number] 2017 00:00:00 PLUS Problems This patient has no known problems. Allergies, Adverse Reactions, Alerts Allergy Allergy Status Severity Reaction(s) Onset Inactive Treating Comm ents Source Name Type Date Date Clinician NITRO DRUG Active Other-Cmnt 2019-0 Univer s TRANSDER 07-27 ity of MAL 00:00: [address] ACETAMIN DRUG Active Other-Cmnt 2019-0 Univ ers OPHEN INGREDI 5- ity of 00:00: [address] Branch Social History Social Habit Start Date Stop Date Quantity Comments Source Sex Assigned At [facility] Alcohol intake 2016-05-01 2016-05-01 Current [facility] es - 00:00:00 00:00:00 non-drinker of Medical nter alcohol (finding) Smoking Status Start Date Stop Date Source Current every day smoker 2016-05-01 00:00:00 [facility] Medications Ordered Filled Start Stop Current Ordering Indication Dosage Frequency Signature Comments Components Source Medication Medication Date Date Medication? Clinician (SIG) Name Name OXcarbazepi Yes 600mg [id number] Take [address] ne 2-23 [id number] [facility] by [facility] (TRILEPTAL) 10:23: 3D mouth 3 Med ical 600 MG 59 (three) Center tablet times daily. PARoxetine Yes 40mg QD Take [address] (PAXIL) 40 2-23 by [facility] - MG tablet 10:23: nightly. Medi anjeilca 59 Center LORazepam Yes 1mg Take 1 [...] Date/Time Type Type Clinicians Facility Department ID 2020-08-03 2020-08-03 Outpatient MATT VÁSQUEZ [facility] [id number] Univers 10:00:00 10:00:00 MATT SIMPSON [id number] [facility] 2020-08-03 2020-08-03 Outpatient [facility] [id number] Univers 10:00:00 10:00:00 MATT SIMPSON [facility] 2020-07-25 2020-07-25 Orders Doctor FISH [id number] 00:00:00 00:00:00 Only Unassigned, BK [id number] [place] [facility] [id number] 2019-09-26 2019-09-26 Outpatient Bertin KRISHNAMURTHY [facility] [id number] Univers 16:00:00 16:00:00 WALLY [facility] 2019-09-26 2019-09-26 [facility] [id number] Univers 16:00:00 16:00:00 WALLY yeager [facility] 2018-10-21 2018-10-21 Telephone [facility], [facility] [id number] 00:00:00 00:00:00 Natacha Nguyen [id number] Ade [id number] Professio [phone] [facility] 204 Building Results This patient has no known results.
--- NOTE | 2021-03-06 19:08 | ER ---
Nurse's Notes [facility] Name: Jaimie Amanda Age: 60 yrs Sex: Female : 1960 Arrival Date: 03/06/2021 Time: 18:05 Bed Waiting Private MD: Diagnosis: ED Course: 03/06 18:05 Patient arrived in ED. am2 19:06 Patient's name was called from ER lobby. No response. Unable to locate patient. Will vg1 disposition as left without being seen by a provider. Administered Medications: No medications were administered Outcome: 19:07 Patient left the ED. vg1 Signatures: Elisa Gregory am2 Geneva Ramirez, RN RN vg1
== END 2021-03-06 19:07 | disposition left against medical advice (07) ==
LOC: ER 18:03
DX: Z02.89 Encounter for other administrative examinations (principal)

== ENCOUNTER → 2021-03-08 | Emergency (ER) | payer OTHER ==
[~2021-03-08] MED LIST: LORazepam 2 MG/ML VIAL ONE; MECLIZINE HCL 12.5 MG TAB ONE; NA CHLORIDE 0.9% 1,000 ML ONE; NA CHLORIDE 0.9% 500 ML ONE; ONDANSETRON 4 MG/2 ML VIAL ONE; THIAMINE 200 MG/2 ML INJ ONE; cloNIDine HCL 0.1 MG TAB ONE
--- OUTSIDE RECORDS SUMMARY | 2021-03-08 08:13 | XMS REPORT | Continuity of Care Document ---
:1960 Author Organization [facility] t Address [address] [place] [address] Dr. Vasquez [address] [place] [address] Care Team Providers Name Role Phone Sharpless Primary Care Physician RADHA SIMPSON Attending Clinician Unavailable RADHA SIMPSON Attending Clinician Unavailable Doctor Unassigned, Name Attending Clinician Unavailable RAGHU Attending Clinician Unavailable Nazanin CONTINUOUS DRIER OPERATOR, A Attending Clinician Payers Payer Name Policy Type Policy Number Effective Date Expiration Date S flip [facility]AR [id number] 2017 00:00:00 PLUS Problems This patient has no known problems. Allergies, Adverse Reactions, Alerts Allergy Allergy Status Severity Reaction(s) Onset Inactive Treating Comm ents Source Name Type Date Date Clinician NITRO DRUG Active Other-Cmnt 2019-0 Univer s TRANSDER 07-27 ity of MAL 00:00: [address] ACETAMIN DRUG Active Other-Cmnt 2019-0 Univ ers OPHEN INGREDI 5- ity of 00:00: [address] Social History Social Habit Start Date Stop Date Quantity Comments Source Sex Assigned At [facility] Alcohol intake 2016-05-01 2016-05-01 Current [facility] es - 00:00:00 00:00:00 non-drinker of Medical nter alcohol (finding) Smoking Status Start Date Stop Date Source Current every day smoker 2016-05-01 00:00:00 [facility] Medications Ordered Filled Start Stop Current Ordering Indication Dosage Frequency Signature Comments Components Source Medication Medication Date Date Medication? Clinician (SIG) Name Name OXcarbazepi Yes 600mg [id number] Take [address] ne 2-23 [id number] [facility] (TRILEPTAL) 10:23: 3D [...] Department ID 2020-08-03 2020-08-03 Outpatient MATT VÁSQUEZ [facility] [id number] Univers 10:00:00 10:00:00 MATT SIMPSON [id number] [facility] 2020-08-03 2020-08-03 Outpatient MATT VÁSQUEZ [facility] [id number] Univers 10:00:00 10:00:00 MATT SIMPSON [facility] 2020-07-25 2020-07-25 Orders Doctor FISH [id number] 00:00:00 00:00:00 Only Unassigned, BK [id number] [place] [facility] [id number] 2019-09-26 2019-09-26 Outpatient Bertin KRISHNAMURTHY [facility] [id number] Univers 16:00:00 16:00:00 WALLY [facility] 2019-09-26 2019-09-26 [facility] [id number] Univers 16:00:00 16:00:00 WALLY yeager [facility] 2018-10-21 2018-10-21 Telephone [facility], [facility] [id number] 00:00:00 00:00:00 Natacha Nguyen [id number] Ade [id number] Professio [phone] [facility] 204 Building Results This patient has no known results.
[2021-03-08 09:44] LABS: Absolute Lymphocytes (CBC) 1.4 K/uL (0.7-4.9); Lymphocytes % 13.5 % (15.3-44.8); MPV 6.8 fL (7.6-11.3); RBC Red Blood Cell Count 4.61 M/uL (3.86-4.86)
[2021-03-08 09:48] LABS: Protime INR 0.99
[2021-03-08 10:11] LABS: ALT/SGPT 36 U/L (12-78); AST/SGOT 32 U/L (15-37); Albumin 4.3 g/dL (3.4-5.0); Alkaline Phosphatase 112 U/L (45-117); BUN Blood Urea Nitrogen 16 mg/dL (7-18); Bicarbonate 25 mmol/L (21-32); Bilirubin Direct 0.1 mg/dL (0-0.2); Bilirubin Total 0.4 mg/dL (0.2-1.0); Creatine Phosphokinase 863 U/L (26-192); Glucose Level 184 mg/dL (74-106); Lipase 48 U/L (73-393); Magnesium 2.1 mg/dL (1.8-2.4); Potassium 3.7 mmol/L (3.5-5.1); Protein, Total 8.9 g/dL (6.4-8.2); Troponin (Emerg Dept Use Only) < 0.02 ng/mL (0.0-0.045)
--- NOTE | 2021-03-08 10:17 | RAD REPORT ---
EXAM DESCRIPTION: CT - Head Brain Wo Cont - 03/08/2021 10:10 am CLINICAL HISTORY: Dizziness COMPARISON: October 2020 TECHNIQUE: Computed axial tomography of the head was obtained. IV contrast was not requested. All CT scans are performed using dose optimization technique as appropriate and may include automated exposure control or mA/KV adjustment according to patient size. FINDINGS: An intracranial bleed is not seen . The ventricles are normal in caliber. No extra-axial fluid collection is noted. Fluid within the sinuses/ mastoids is not seen. IMPRESSION: No acute intracranial abnormality is seen. If patient's symptoms persist MRI of the bra in would be recommended.
[2021-03-08 10:19] LABS: Sodium Level 119 mmol/L (136-145)
--- NOTE | 2021-03-08 10:23 | RAD REPORT ---
EXAM DESCRIPTION: sIrael Angio03/08/2021 10:11 am CLINICAL HISTORY: Dizziness COMPARISON: None TECHNIQUE: 50 cc Isovue 370 was administered intravenously. 3D MIP reconstruction performed All CT scans are performed using dose optimization technique as appropriate and may include automated exposure control or mA/KV adjustment according to patient size. FINDINGS: Mild plaque within the common carotid, internal carotid and external carotid arteries bila terally Vertebral arteries are codominant. No dissection seen. No high-grade stenosis IMPRESSION: Mild plaque within the carotid arteries No significant abnormality displayed NASCET criteria used. Mild 0-49% stenosis Moderate 50-69% stenosis Severe 70-99% stenosis
--- NOTE | 2021-03-08 10:26 | RAD REPORT ---
EXAM DESCRIPTION: CTHead angio03/08/2021 10:11 am CLINICAL HISTORY: Dizziness COMPARISON: None TECHNIQUE: CT angiogram of the head was obtained. 3D MIPS reconstruction performed. All CT scans are performed using dose optimization technique as appropriate and may include automated exposure control or mA/KV adjustment according to patient size. FINDINGS: The basilar, internal carotid, anterior cerebral, middle cerebral and posterior cerebral a rteries are normal caliber. An aneurysm is not seen. A significant stenosis is not noted. IMPRESSION: No acute abnormality is displayed
--- NOTE | 2021-03-08 10:31 | RAD REPORT ---
EXAM DESCRIPTION: CT - Abdomen Pelvis W Contrast - 03/08/2021 10:11 am CLINICAL HISTORY: Abdominal pain COMPARISON: November 2020 TECHNIQUE: Computed axial tomography of the abdomen pelvis was obtained. 100 cc Isovue-300 was admin istered intravenously. Oral contrast was not requested which limits evaluation of bowel. All CT scans are performed using dose optimization technique as appropriate and may include automated exposure control or mA/KV adjustment according to patient size. FINDINGS: Mild fatty infiltration of the liver. Small cysts. Spleen, pancreas, right adrenal and kidneys appear unremarkable. Tiny left adrenal nodule unchanged l ikely benign. There is no evidence of diverticulitis. Normal appendix Small to moderate hiatal hernia IMPRESSION: No acute abnormality is displayed.
--- NOTE | 2021-03-08 10:51 | ER ---
Nurse's Notes [facility] Name: Jaimie Amanda Age: 60 yrs Sex: Female : 1960 Arrival Date: 03/08/2021 Time: 08:15 Bed 24 Private MD: Diagnosis: Hypo-osmolality and hyponatremia;Altered mental status, unspecified Presentation: 03/08 08:27 Chief complaint: Patient states: Chest pain, dizizness, "a little bit short of breath, eo2 denies LO, states I can walk, but "I'm dizzy and very nauseated" symptoms onset yesterday, reports falling down yesterday "I hit my knee" noted bruising to left knee. Pt denies any numbness/tingling, noted with movement to all extremities. Coronavirus screen: Vaccine status: Patient reports receiving the 2nd dose of the covid vaccine. Client denies travel out of the [place] in the last 14 days. Ebola Screen: Patient negative for fever greater than or equal to 101.5 degrees Fahrenheit, and additional compatible Ebola Virus Disease symptoms Patient denies exposure to infectious person. Patient denies travel to an Ebola-affected area in the 21 days before illness onset. No symptoms or risks identified at this time. No acute neurological deficit is noted. Initial Sepsis Screen: Does the patient meet any 2 criteria? Altered Mental Status. Does the patient have a suspected source of infection? No. Patient's initial sepsis screen is negative. Risk Assessment: Do you want to hurt yourself or someone else? Patient reports no desire to harm self or others. Onset of symptoms is unknown. 08:27 Method Of Arrival: Wheelchair eo2 08:27 Acuity: ZHEN 2 eo2 Triage Assessment: 08:35 The onset of the patients symptoms was at an unknown time. General: Appears eo2 uncomfortable, Behavior is anxious. Pain: Complains of pain in "pain in my left side". Neuro: Reports dizziness, "I can't think" pt alert of self, , mildly to situation, disoriented to time. Historical: - Allergies: 08:35 No Known Allergies; eo2 - Home Meds: 08:35 Synthroid Oral [Active]; eo2 - PMHx: 08:35 Hypertensive disorder; eo2 - PSHx: 08:35 hypothyroidism; eo2 - Immunization history:: Adult Immunizations up to date. - Social history:: Smoking status: Patient reports the use of cigarette tobacco products, smokes one pack cigarettes per day. Patient uses alcohol, denies drinking. - Family history:: not pertinent. - Hospitalizations: : No recent hospitalization is reported. Screenin:00 Abuse screen: Denies threats or abuse. Denies injuries from another. Nutritional bp screening: No deficits noted. Tuberculosis screening: No symptoms or risk factors identified. Fall Risk None identified. Assessment: 10:10 Reassessment: Pt refusing to lay still for CT, ERD notified, VO for 1 mg Ativan IVP, pt jl7 medicated as ordered. 11:48 Reassessment: Attempted to talk patient into staying, informed pt her sodium is low, pt jl7 states "Well, I am going now." Pt ambulated with steady gate out of ER. 12:00 VAN Scoring: Arm Drift: Patients demonstrates NO arm weakness. Patient is VAN Negative. bp The patient has not been NPO before screening. The patient is alert, and able to follow commands. The patient does not exhibit slurred or garbled speech. The patient is not exhibiting difficulty speaking. The patient is exhibiting difficulty understanding words. The patient is unable to swallow own secretions without drooling or the need for suction. Patient tolerated one teaspoon of water. No drooling, immediate coughing, gurgling, or clearing of the throat was noted. The patient tolerated 90mL of water. No drooling, immediate coughing, gurgling, or clearing of the throat was noted. The patient passed the bedside swallow screening. Oral medications may be given as ordered. Contact Physician for further diet orders. T-PA (Activase) Screening: Contraindications: Patient reports onset of signs and symptoms of stroke greater than 6 hours ago: Yes. Rapidly improving condition or minor deficit: Yes. Reassessment: PT SIGNED OUT AMA. PT COUNSELLED BY PROVIDER AND STAFF BUT REFUSING. PT ADVISED TO RETURN IF S/S RETURN OR WORSEN. Vital Signs: 08:27 BP 190 / 107; Pulse 74; Resp 17; Temp 98.5; Pulse Ox 97% ; Weight 72.57 kg; Height 5 eo2 ft. 7 in. (170.18 cm); Pain 9/10; 09:30 BP 208 / 98; Pulse 75; Resp 15; Pulse Ox 97% ; jl7 12:00 BP 187 / 89; Pulse 64; Resp 17; Temp 98.4; Pulse Ox 97% ; bp 08:27 Body Mass Index 25.06 (72.57 kg, 170.18 cm) eo2 NIH Stroke Scale Scores: 12:00 NIHSS Score: 0 bp ED Course: 08:15 Patient arrived in ED. mr 08:35 Triage completed. eo2 08:45 Villa Byrd MD is Attending Physician. rn 09:11 Sadiq Rosales RN is Primary Nurse. bp 09:16 EKG done, by ED staff, reviewed by Villa Byrd MD. dh3 09:40 Initial lab(s) drawn, by dc, sent to lab. Inserted saline lock: 22 gauge in right jl7 forearm, using aseptic technique. Blood collected. 10:10 CT Head Brain wo Cont In Process Unspecified. EDMS 10:10 CT Head Angio In Process Unspecified. EDMS 10:10 CT Neck Angio In Process Unspecified. EDMS 10:10 CT Abd/Pelvis - IV Contrast Only In Process Unspecified. EDMS 10:50 Joseph Gustafson MD is Hospitalizing Provider. rn 11:24 Assisted to bathroom. mb4 12:00 No provider procedures requiring assistance completed. IV discontinued, intact, bp bleeding controlled, No redness/swelling at site. Pressure dressing applied. 12:00 Patient has correct armband on for positive identification. Bed in low position. Call bp light in reach. Side rails up X2. Administered Medications: 09:15 Drug: Zofran (Ondansetron) 4 mg Route: IVP; Site: right forearm; bp 09:20 Drug: Meclizine 50 mg Route: PO; jl7 12:00 Follow up: Response: No adverse reaction; Marked relief of symptoms bp 10:10 Drug: Ativan (LORazepam) 1 mg Route: IVP; Site: right forearm; jl7 12:00 Follow up: Response: No adverse reaction; Anxiety decreased bp 10:15 Drug: NS 0.9% 1000 ml Route: IV; Rate: 1000 ml; Site: right forearm; bp 11:15 Drug: cloNIDine 0.1 mg Route: PO; bp 12:00 Follow up: Response: No adverse reaction bp Outcome: 10:50 Decision to Hospitalize by Provider. rn 12:00 Tapand from patient exam room. bp 12:07 Patient left the ED. bp NIH Stroke Scale - NIH Stroke Score Date: 03/08/2021 Time: 12:00 Total Score = 0 1a. Level of Consciousness (LOC) - 0(Alert) 1b. Level of Consciousness (LOC) (Month \\T\\ Age) - 0(Both) 1c. LOC Commands (Open \\T\\ Closes Eyes/Matcher Le[employer]) - 0(Both) 2. Best Gaze (Lateral Gaze Paresis) - 0(Normal) 3. Visual Field Loss - 0(No visual loss) 4. Facial Palsy - 0(Normal) 5a. Left Arm: Motor (10-second hold) - 0(No drift) 5b. Right Arm: Motor (10-second hold) - 0(No drift) 6a. Left Leg: Motor (5-second hold - always test supine) - 0(No drift) 6b. Right Leg: Motor (5-second hold - always test supine) - 0(No drift) 7. Limb Ataxia (finger/nose \\T\\ heel/richards - test with eyes open) - 0(Absent) 8. Sensory Loss (pinprick arms/legs/face) - 0(Normal) 9. Best Language: Aphasia (description/naming/reading) - 0(No aphasia) 10. Dysarthria (speech clarity - read or repeat words) - 0(Normal) 11. Extinction and Inattention (visual/tactile/auditory/spatial/personal) - 0(No abnormality) Initials: bp Signatures: Dispatcher [employer] [facility] Radha Messina Villa Byrd MD MD rn Leal, Jahala, RN RN jl7 [facility] Sadiq Rosales RN RN Mariya Espinoza 4 Norma Roger RN RN eo2 Corrections: (The following items were deleted from the chart) 08:37 08:35 Home Meds: None; eo2 eo2 10:16 10:10 Ativan (LORazepam) 1 mg IVP in left forearm jl7 jl7
--- NOTE | 2021-03-08 10:51 | EDPHYS ---
Physician Documentation [facility] Name: Jaimie Amanda Age: 60 yrs Sex: Female : 1960 Arrival Date: 03/08/2021 Time: 08:15 Bed 24 Private MD: ED Physician Villa Byrd HPI: 03/08 08:55 This 60 yrs old Female presents to ER via Wheelchair with complaints of dizziness, rn nausea. 08:55 The patient presents with dizziness, lightheadedness, feeling off balance, sense of rn spinning. Onset: The symptoms/episode began/occurred yesterday. Context: occurred at home, occurred while the patient was at rest. Modifying factors: The symptoms are alleviated by holding head still, the symptoms are aggravated by movement of head, standing up, changing position. Associated signs and symptoms: Pertinent positives: nausea, vomiting, Pertinent negatives: chest pain, head injury, shortness of breath, syncope. Severity of symptoms: At their worst the symptoms were moderate in the emergency department the symptoms are unchanged. The patient has experienced a previous episode. The patient has not recently seen a physician. Patient reports dizziness that began yesterday, came into the ER but was too busy so left. Denies recent head injury. Denies fever. Reports feels off balance and lightheaded, worse with change in position and moving head, associated with nausea and vomiting. States yesterday had abdominal pain but feels better now. No neck pain. Denies drug use or alcohol. No syncope. Denies chest pain or shortness of breath.. Historical: - Allergies: 08:35 No Known Allergies; eo2 - Home Meds: 08:35 Synthroid Oral [Active]; eo2 - PMHx: 08:35 Hypertensive disorder; eo2 - PSHx: 08:35 hypothyroidism; eo2 - Immunization history:: Adult Immunizations up to date. - Social history:: Smoking status: Patient reports the use of cigarette tobacco products, smokes one pack cigarettes per day. Patient uses alcohol, denies drinking. - Family history:: not pertinent. - Hospitalizations: : No recent hospitalization is reported. ROS: 08:55 Constitutional: Negative for fever, chills, and weight loss, Eyes: Negative for injury, rn pain, redness, and discharge, Neck: Negative for injury, pain, and swelling, Cardiovascular: Negative for chest pain, palpitations, and edema, Respiratory: Negative for shortness of breath, cough, wheezing, and pleuritic chest pain, Abdomen/GI: Positive for nausea and vomiting Back: Negative for injury and pain, : Negative for injury, bleeding, discharge, and swelling, MS/Extremity: Negative for injury and deformity, Skin: Negative for injury, rash, and discoloration, Neuro: Positive for generalized weakness and malaise, negative for seizure, negative for focal weakness, negative for focal numbness or tingling Exam: 08:55 Constitutional: This is a well developed, well nourished patient who is awake, slow to rn respond but answers all questions appropriately Head/Face: Normocephalic, atraumatic. Eyes: Periorbital areas with no swelling, redness, or edema. ENT: Dry mucous membranes Neck: Trachea midline, no masses palpated, and no cervical lymphadenopathy. Supple, full range of motion without nuchal rigidity, or vertebral point tenderness. No Meningismus. Cardiovascular: Regular rate and rhythm. No pulse deficits. Respiratory: No increased work of breathing, no retractions or nasal flaring. Abdomen/GI: Soft, non-tender Skin: Warm, dry, no rash MS/ Extremity: Pulses equal, no cyanosis. Neurovascular intact. Full, normal range of motion. Equal circumference. Neuro: Awake, GCS 15, oriented to person and place but not time. Slow to respond but answers all questions appropriately. Moves all 4 extremities with 4 out of 5 strength. Sensation intact. Gait not tested. Wrvwtn-rw-mpbi and cerebellar testing normal while sitting and at rest 09:13 ECG was reviewed by the Attending Physician. rn Vital Signs: 08:27 BP 190 / 107; Pulse 74; Resp 17; Temp 98.5; Pulse Ox 97% ; Weight 72.57 kg; Height 5 eo2 ft. 7 in. (170.18 cm); Pain 9/10; 09:30 BP 208 / 98; Pulse 75; Resp 15; Pulse Ox 97% ; jl7 12:00 BP 187 / 89; Pulse 64; Resp 17; Temp 98.4; Pulse Ox 97% ; bp 08:27 Body Mass Index 25.06 (72.57 kg, 170.18 cm) eo2 NIH Stroke Scale Scores: 12:00 NIHSS Score: 0 bp MDM: 08:45 Patient medically screened. rn 10:47 Differential diagnosis: cardiac arrhythmia, CVA, generalized weakness, hypovolemia, rn idiopathic dizziness, vertigo. Data reviewed: vital signs, nurses notes. 10:48 Counseling: I had a detailed discussion with the patient and/or guardian regarding: the rn historical points, exam findings, and any diagnostic results supporting the discharge/admit diagnosis, lab results, radiology results, the need for further work-up and treatment in the hospital. Response to treatment: There is no appreciated change of the patient's symptoms at this time, and as a result, I will admit patient. Admission orders: after a detailed discussion of the patient's condition and case, the admit orders are written by me. ED course: CT head/angio and ct neck angio no acute findings. CT abdomen pelvis also negative. Patient asked more encephalopathic than anything. Has had trouble with hyponatremia in the past. Sodium 119 today. Will admit to Dr. Gustafson for correction and IV hydration. 11:38 ED course: Message relayed to me that administration here want patient transferred due rn to lack of hospital beds at this facility. Attempting transfer but the last recheck there were no beds.. 12:10 ED course: Patient after waiting for admission, patient became restless and refused to rn stay. Told nurse Sadiq that she was not going to stay no matter what. Patient was allowed to leave AMA prior to me reevaluating her. Patient was gone before being able to reevaluate. 03/08 08:54 Order name: Basic Metabolic Panel rn 03/08 08:54 Order name: CBC with Diff rn 03/08 08:54 Order name: CPK; Complete Time: 10:34 rn 03/08 08:54 Order name: Hepatic Function; Complete Time: 10:34 rn 03/08 08:54 Order name: Lipase; Complete Time: 10:34 rn 03/08 08:54 Order name: Magnesium; Complete Time: 10:34 rn 03/08 08:54 Order name: Protime (+inr); Complete Time: 10:15 rn 03/08 08:54 Order name: Ptt, Activated; Complete Time: 10:15 rn 03/08 08:54 Order name: Troponin (emerg Dept Use Only); Complete Time: 10:34 rn 03/08 08:54 Order name: AMMONIA; Complete Time: 10:15 rn 03/08 08:54 Order name: ETOH Level; Complete Time: 10:15 rn 03/08 08:54 Order name: Basic Metabolic Panel; Complete Time: 10:34 EDMS 03/08 08:54 Order name: CT Head Brain wo Cont; Complete Time: 10:34 rn 03/08 08:54 Order name: EKG; Complete Time: 08:55 rn 03/08 08:54 Order name: Cardiac monitoring; Complete Time: 09:16 rn 03/08 08:54 Order name: EKG - Nurse/Tech; Complete Time: 09:16 rn 03/08 08:54 Order name: IV Saline Lock; Complete Time: 09:40 rn 03/08 08:54 Order name: CT Head Angio; Complete Time: 10:34 rn 03/08 08:54 Order name: CT Neck Angio; Complete Time: 10:34 rn 03/08 08:54 Order name: CT Abd/Pelvis - IV Contrast Only; Complete Time: 10:34 rn 03/08 08:54 Order name: CBC with Automated Diff; Complete Time: 10:15 EDMS 03/08 09:40 Order name: Glucose, Ancillary Testing; Complete Time: 10:15 EDMS 03/08 10:27 Order name: COVID-19/FLU A+B; Complete Time: 11:40 EDMS 03/08 08:54 Order name: Labs collected and sent; Complete Time: 09:40 rn 03/08 08:54 Order name: O2 Per Protocol; Complete Time: 09:12 rn 03/08 08:54 Order name: O2 Sat Monitoring; Complete Time: 09:12 rn 03/08 08:54 Order name: Glucose Level; Complete Time: 09:40 rn EC:13 Rate is 76 beats/min. Rhythm is regular. QRS [place] is Normal. MS interval is normal. QRS rn interval is normal. QT interval is normal. No Q waves. T waves are Normal. No ST changes noted. Clinical impression: Normal ECG. Reviewed by me. Administered Medications: 09:15 Drug: Zofran (Ondansetron) 4 mg Route: IVP; Site: right forearm; bp 09:20 Drug: Meclizine 50 mg Route: PO; jl7 12:00 Follow up: Response: No adverse reaction; Marked relief of symptoms bp 10:10 Drug: Ativan (LORazepam) 1 mg Route: IVP; Site: right forearm; jl7 12:00 Follow up: Response: No adverse reaction; Anxiety decreased bp 10:15 Drug: NS 0.9% 1000 ml Route: IV; Rate: 1000 ml; Site: right forearm; bp 11:15 Drug: cloNIDine 0.1 mg Route: PO; bp 12:00 Follow up: Response: No adverse reaction bp Disposition Summary: 03/08/21 10:50 Hospitalization Ordered Hospitalization Status: Inpatient Admission rn Provider: Joseph Gustafson rn Location: Telemetry/MedSurg (Inpatient) rn Condition: Stable rn Problem: new rn Symptoms: have improved rn Bed/Room Type: Standard rn Room Assignment: rn Diagnosis - Hypo-osmolality and hyponatremia rn - Altered mental status, unspecified rn Forms: - Medication Reconciliation Form rn - SBAR form rn NIH Stroke Scale - NIH Stroke Score Date: 03/08/2021 Time: 12:00 Total Score = 0 1a. Level of Consciousness (LOC) - 0(Alert) 1b. Level of Consciousness (LOC) (Month \T\ Age) - 0(Both) 1c. LOC Commands (Open \T\ Closes Eyes/Siding Installer) - 0(Both) 2. Best Gaze (Lateral Gaze Paresis) - 0(Normal) 3. Visual Field Loss - 0(No visual loss) 4. Facial Palsy - 0(Normal) 5a. Left Arm: Motor (10-second hold) - 0(No drift) 5b. Right Arm: Motor (10-second hold) - 0(No drift) 6a. Left Leg: Motor (5-second hold - always test supine) - 0(No drift) 6b. Right Leg: Motor (5-second hold - always test supine) - 0(No drift) 7. Limb Ataxia (finger/nose \T\ heel/richards - test with eyes open) - 0(Absent) 8. Sensory Loss (pinprick arms/legs/face) - 0(Normal) 9. Best Language: Aphasia (description/naming/reading) - 0(No aphasia) 10. Dysarthria (speech clarity - read or repeat words) - 0(Normal) 11. Extinction and Inattention (visual/tactile/auditory/spatial/personal) - 0(No abnormality) Initials: bp Signatures: Dispatcher [employer] EDVilla Almonte MD MD rn Leal, Jahala, RN RN jl7 Sadiq Rosales RN RN bp Norma Roger RN RN eo2 Corrections: (The following items were deleted from the chart) 08:37 08:35 Home Meds: None; eo2 eo2 10:26 08:55 Influenza Screen (A \T\ B)+BA.LAB.BRZ ordered. EDMS EDMS 10:27 08:55 SARS-COV-2 RT PCR+MOL.LAB.BRZ ordered. EDMS EDMS
[2021-03-08 11:29] LABS: SARS-COV-2 RT PCR NEGATIVE (NEGATIVE)
[2021-03-08 12:14] VITALS: O2SAT 97
[2021-03-08 12:17] VITALS: BP 187/89; TEMP 98.4
== END ==
LOC: ER 08:11
DX: E87.1 Hypo-osmolality and hyponatremia (principal); R41.82 Altered mental status, unspecified; F17.210 Nicotine dependence, cigarettes, uncomplicated; R29.700 NIHSS score 0; Z20.822 Contact with and (suspected) exposure to COVID-19
CPT/HCPCS: 0240U; 36415; 70450; 70496; 70498; 74177; 80048; 80076; 80320; 82140; 82550; 82565; 82947; 83690; 83735; 84484; 85025; 85610; 85730; 93005; 96374; 96375; 99284; J2405; J7030; J8597; Q9967

== ENCOUNTER 2021-03-09 13:35 | Inpatient (IN) | payer OTHER ==
--- OUTSIDE RECORDS SUMMARY | 2021-03-09 13:37 | XMS REPORT | Continuity of Care Document ---
:1960 Author Organization [facility] t Address [address] [place] [address] [address]. [address] [place] [address] Care Team Providers Name Role Phone Sharpless Primary Care Physician RADHA SIMPSON Attending Clinician Unavailable RADHA SIMPSON Attending Clinician Unavailable Doctor Unassigned, Name Attending Clinician Unavailable RAGHU Attending Clinician Unavailable Nazanin BRATTICE BUILDER, A Attending Clinician Payers Payer Name Policy Type Policy Number Effective Date Expiration Date S flip [facility] STAR [id number] 2017 00:00:00 PLUS Problems This patient has no known problems. Allergies, Adverse Reactions, Alerts Allergy Allergy Status Severity Reaction(s) Onset Inactive Treating Comm ents Source Name Type Date Date Clinician NITRO DRUG Active Other-Cmnt 2019-0 Univer s TRANSDER 07-27 ity of MAL 00:00: [address] [place] ACETAMIN DRUG Active Other-Cmnt 2019-0 Univ ers OPHEN INGREDI 5- ity of 00:00: [address] [place] Social History Social Habit Start Date Stop Date Quantity Comments Source Sex Assigned At [facility] Alcohol intake 2016-05-01 2016-05-01 Current [facility] es - 00:00:00 00:00:00 non-drinker of Medical nter alcohol (finding) Smoking Status Start Date Stop Date Source Current every day smoker 2016-05-01 00:00:00 [facility] Medications Ordered Filled Start Stop Current Ordering Indication Dosage Frequency Signature Comments Components Source Medication Medication Date Date Medication? Clinician (SIG) Name Name OXcarbazepi Yes 600mg [id number] Take [address] ne 2-23 [id number] mg by [facility] - (TRILEPTAL) 10:23: 3D [...] Department ID 2020-08-03 2020-08-03 Outpatient MATT VÁSQUEZ [facility] [id number] Univers 10:00:00 10:00:[id number] [facility] 2020-08-03 2020-08-03 Outpatient MATT VÁSQUEZ [facility] [id number] Univers 10:00:00 10:00:[address] [facility] 2020-07-25 2020-07-25 Orders Doctor FISH [id number] 00:00:00 00:00:00 Only Unassigned, BK [id number] [place] [facility] [id number] 2019-09-26 2019-09-26 Outpatient Bertin KRISHNAMURTHY [facility] [id number] Univers 16:00:00 16:00:[address] [facility] 2019-09-26 2019-09-26 [facility] [id number] Univers 16:00:00 16:00:00 WALLY yeager [facility] 2018-10-21 2018-10-21 Telephone [facility] [id number] 00:00:00 00:00:00 Natacha Nguyen [id number] Ade [id number] Professio [phone] [facility] [address] Results This patient has no known results.
--- NOTE | 2021-03-09 14:04 | RAD REPORT ---
EXAM DESCRIPTION: CT - Head Brain Wo Cont - 03/09/2021 1:54 pm CLINICAL HISTORY: Dizziness;Seizure COMPARISON: Head Brain Wo Cont dated 03/08/2021 TECHNIQUE: Axial 5 mm thick images of the head were obtained without IV contrast. All CT scans are performed using dose optimization technique as appropriate and may include automated exposure control or mA/KV adjustment according to patient size. FINDINGS: No intracranial hemorrhage, mass, edema or shift of mid-line structures. No acute cortical based infarction. No cortical edema or sulcal effacement. No significant atrophy seen. Only minimal chronic ischemic change identifiable. No abnormal extra-axial fluid collections. Ventricles are aakash l. Intracranial findings are similar to the prior day study. Mastoid air cells and visualized portions of the paranasal sinuses are clear. No acute bony findings. Findings telephoned to Dr Ramirez 1400 hours IMPRESSION: No acute intracranial process identifiable. No significant change from the prior day study.
--- NOTE | 2021-03-09 14:10 | RAD REPORT ---
EXAM DESCRIPTION: RAD - Chest Single View - 03/09/2021 1:58 pm CLINICAL HISTORY: COUGH, code stroke chest film COMPARISON: October 2020 TECHNIQUE: AP portable chest image was obtained 03/09/2021 1:58 pm . FINDINGS: No focal lung parenchymal process. Prominent interstitial pattern matches comparison. No s ignificant failure or volume overload. Heart and vasculature are normal. No measurable pleural effusi on and no pneumothorax. No acute bony abnormality seen. No acute aortic findings suspected. IMPRESSION: No acute cardiopulmonary process. No significant change from comparison study.
[2021-03-09 14:16] LABS: Absolute Lymphocytes (CBC) 2.2 K/uL (0.7-4.9); Hematocrit 38.5 % (36.0-45.0); Lymphocytes % 31.6 % (15.3-44.8); MPV 6.8 fL (7.6-11.3); RBC Red Blood Cell Count 4.19 M/uL (3.86-4.86)
[2021-03-09 14:17] LABS: Protime INR 0.93
[2021-03-09 14:39] LABS: ALT/SGPT 41 U/L (12-78); AST/SGOT 29 U/L (15-37); Albumin 3.9 g/dL (3.4-5.0); Alkaline Phosphatase 111 U/L (45-117); BUN Blood Urea Nitrogen 26 mg/dL (7-18); Bicarbonate 25 mmol/L (21-32); Bilirubin Direct < 0.1 mg/dL (0-0.2); Bilirubin Total 0.2 mg/dL (0.2-1.0); Glucose Level 145 mg/dL (74-106); Magnesium 2.1 mg/dL (1.8-2.4); NT PRO-BNP 75 pg/mL (<125); Potassium 3.4 mmol/L (3.5-5.1); Protein, Total 7.8 g/dL (6.4-8.2); Sodium Level 125 mmol/L (136-145); Troponin (Emerg Dept Use Only) < 0.02 ng/mL (0.0-0.045)
--- NOTE | 2021-03-09 15:36 | ER ---
Nurse's Notes [facility] Name: Jaimie Amanda Age: 60 yrs Sex: Female : 1960 Arrival Date: 03/09/2021 Time: 13:35 Bed 3 Private MD: Diagnosis: Alcohol abuse-history of;Epileptic seizures related to external causes;Hypo-osmolality and hyponatremia;Hypokalemia Presentation: 03/09 13:36 Chief complaint: Patient states: pt had seizure witness by mother. upon EMS pt was cordero present with slurred speech and left face drooping. Coronavirus screen: Vaccine status: Patient reports being unvaccinated. Ebola Screen: Patient denies travel to an Ebola-affected area in the 21 days before illness onset. Initial Sepsis Screen: Does the patient meet any 2 criteria? No. Patient's initial sepsis screen is negative. Does the patient have a suspected source of infection? No. Patient's initial sepsis screen is negative. Risk Assessment: Do you want to hurt yourself or someone else? Patient reports no desire to harm self or others. Onset of symptoms was March 09, 2020. 13:36 Method Of Arrival: EMS: [facility] cordero 13:36 Acuity: ZHEN 2 cordero Triage Assessment: 14:48 General: Appears in no apparent distress. Behavior is calm, cooperative. Pain: Denies cordero pain. Historical: - Allergies: 13:40 No Known Allergies; cordero - Home Meds: 13:40 Synthroid Oral [Active]; cordero - PMHx: 13:40 Hypertensive disorder; cordero - PSHx: 13:40 hypothyroidism; cordero - Immunization history:: Adult Immunizations up to date. - Social history:: Smoking status: Patient reports the use of cigarette tobacco products, smokes one-half pack cigarettes per day. Screenin:48 Abuse screen: Denies threats or abuse. Denies injuries from another. Nutritional cordero screening: No deficits noted. Tuberculosis screening: No symptoms or risk factors identified. Fall Risk Fall in past 12 months (25 points). Assessment: 14:49 Neuro: Oriented to Speech is slurred, Seizure activity reported prior to arrival. cordero 16:25 Reassessment: Patient appears in no apparent distress at this time. No changes from ww previously documented assessment. Patient and/or family updated on plan of care and expected duration. Pain level reassessed. Patient is alert, oriented x 3, equal unlabored respirations, skin warm/dry/pink. 17:20 Reassessment: Patient appears in no apparent distress at this time. No changes from previously documented assessment. Patient and/or family updated on plan of care and expected duration. Pain level reassessed. Patient is alert, oriented x 3, equal unlabored respirations, skin warm/dry/pink. Neuro: Level of Consciousness is alert, obeys commands, Oriented to person, place. Vital Signs: 13:36 BP 102 / 66; Pulse 73; Resp 18; Temp 98.1; Pulse Ox 96% ; Weight 81.65 kg; Height 5 ft. cordero 7 in. (170.18 cm); 14:47 BP 113 / 66; Pulse 63; Resp 18; Pulse Ox 99% on R/A; cordero 16:15 BP 100 / 51; Pulse 58; Resp 16; Pulse Ox 97% ; cordero 17:21 BP 105 / 63; Pulse 61; Resp 16; Pulse Ox 98% ; ww 13:36 Body Mass Index 28.19 (81.65 kg, 170.18 cm) cordero NIH Stroke Scale Scores: 15:03 NIHSS Score: 0 [facility] ED Course: 13:35 Patient arrived in ED. eb 13:40 Triage completed. 13:49 Diego Ramirez MD is Attending Physician. [facility] 13:[address] [facility] 13:54 CT Head Brain wo Cont In Process Unspecified. EDMS 13:58 XRAY Chest (1 view) In Process Unspecified. EDMS 14:07 EKG done, by ED staff, reviewed by Diego Ramirez MD. [facility] 14:48 Inserted saline lock: 20 gauge in right antecubital area, using aseptic technique. cordero 14:48 Inserted. cordero 14:48 Patient has correct armband on for positive identification. Bed in low position. Adult cordero w/ patient. 14:48 Arm band placed on right wrist. 15:12 Joseph Gustafson MD is Hospitalizing Provider. [facility] 15:36 Olegario Bettencourt is Hospitalizing Provider. [facility] 15:39 Urine Drug Screen Sent. [facility] 15:40 Urine collected: clean catch specimen, josse colored. [facility] 17:02 COVID-19 SARS RT PCR (Document "Date of Onset" if Symptomatic) Sent. Administered Medications: 14:22 Drug: NS 0.9% 500 ml Route: IV; Rate: bolus; Site: right antecubital; ww 14:50 Follow up: IV Status: Completed infusion cordero 16:15 Follow up: IV Status: Completed infusion cordero 14:41 Drug: NS 0.9% 1000 ml Route: IV; Rate: 75 ml/hr; Site: left forearm; cordero 18:46 Follow up: IV Status: Completed infusion cordero 14:41 Drug: Thiamine 100 mg Route: IV; Rate: bolus; Site: left femoral; cordero 14:50 Follow up: IV Status: Completed infusion cordero 16:15 Follow up: IV Status: Completed infusion cordero 16:14 Drug: Potassium Effervescent Tablet 25 mEq Route: PO; cordero 16:15 Follow up: Response: No adverse reaction cordero 16:14 Drug: Pepcid (famotidine) 20 mg Route: IVP; Site: right antecubital; cordero 16:15 Follow up: Response: No adverse reaction cordero 16:14 Drug: Ativan (LORazepam) 0.5 mg Route: IVP; Site: right antecubital; cordero 16:15 Follow up: Response: No adverse reaction cordero 18:45 Follow up: Response: No adverse reaction cordero 16:14 Drug: Keppra (levETIRAcetam) 1000 mg Route: IV; Rate: per protocol; Site: right cordero antecubital; 18:46 Follow up: IV Status: Completed infusion Outcome: 15:36 Decision to Hospitalize by Provider. hannah 18:56 Patient left the ED. NIH Stroke Scale - NIH Stroke Score Date: 03/09/2021 Time: 15:03 Total Score = 0 1a. Level of Consciousness (LOC) - 0(Alert) 1b. Level of Consciousness (LOC) (Month \\T\\ Age) - 0(Both) 1c. LOC Commands (Open \\T\\ Closes Eyes/Senior Process Analyst) - 0(Both) 2. Best Gaze (Lateral Gaze Paresis) - 0(Normal) 3. Visual Field Loss - 0(No visual loss) 4. Facial Palsy - 0(Normal) 5a. Left Arm: Motor (10-second hold) - 0(No drift) 5b. Right Arm: Motor (10-second hold) - 0(No drift) 6a. Left Leg: Motor (5-second hold - always test supine) - 0(No drift) 6b. Right Leg: Motor (5-second hold - always test supine) - 0(No drift) 7. Limb Ataxia (finger/nose \\T\\ heel/richards - test with eyes open) - 0(Absent) 8. Sensory Loss (pinprick arms/legs/face) - 0(Normal) 9. Best Language: Aphasia (description/naming/reading) - 0(No aphasia) 10. Dysarthria (speech clarity - read or repeat words) - 0(Normal) 11. Extinction and Inattention (visual/tactile/auditory/spatial/personal) - 0(No abnormality) Initials: hannah Signatures: Dispatcher [employer] EDDiego Angela MD MD cha Martinez, Maria 5 Nikkie Merrill Mackenzie 4 Candelaria Yeboah, RN RN Gail Barragan RN RN ha
--- NOTE | 2021-03-09 15:36 | EDPHYS ---
Physician Documentation [facility] Name: Jaimie Amanda Age: 60 yrs Sex: Female : 1960 Arrival Date: 03/09/2021 Time: 13:35 Bed 3 Private MD: ED Physician Diego Ramirez HPI: 03/09 15:01 This 60 yrs old Female presents to ER via EMS with complaints of seizure, hannah hyponatremia. Historical: - Allergies: 13:40 No Known Allergies; cordero - Home Meds: 13:40 Synthroid Oral [Active]; cordero - PMHx: 13:40 Hypertensive disorder; cordero - PSHx: 13:40 hypothyroidism; cordero - Immunization history:: Adult Immunizations up to date. - Social history:: Smoking status: Patient reports the use of cigarette tobacco products, smokes one-half pack cigarettes per day. ROS: 15:03 Constitutional: Negative for fever, chills, and weight loss, Eyes: Negative for injury, hannah pain, redness, and discharge, ENT: Negative for injury, pain, and discharge, Neck: Negative for injury, pain, and swelling, Cardiovascular: Negative for chest pain, palpitations, and edema, Respiratory: Negative for shortness of breath, cough, wheezing, and pleuritic chest pain, Abdomen/GI: Negative for abdominal pain, nausea, vomiting, diarrhea, and constipation, Back: Negative for injury and pain, : Negative for injury, bleeding, discharge, and swelling, MS/Extremity: Negative for injury and deformity, Skin: Negative for injury, rash, and discoloration, Psych: Negative for depression, anxiety, suicide ideation, homicidal ideation, and hallucinations, Allergy/Immunology: Negative for hives, rash, and allergies, Endocrine: Negative for neck swelling, polydipsia, polyuria, polyphagia, and marked weight changes, Hematologic/Lymphatic: Negative for swollen nodes, abnormal bleeding, and unusual bruising. 15:03 Neuro: Positive for altered mental status, seizure activity, weakness. Exam: 15:03 Constitutional: This is a well developed, well nourished patient who is awake, alert, hannah and in no acute distress. Head/Face: Normocephalic, atraumatic. Eyes: Pupils equal round and reactive to light, extra-ocular motions intact. Lids and lashes normal. Conjunctiva and sclera are non-icteric and not injected. Cornea within normal limits. Periorbital areas with no swelling, redness, or edema. ENT: Nares patent. No nasal discharge, no septal abnormalities noted. Tympanic membranes are normal and external auditory canals are clear. Oropharynx with no redness, swelling, or masses, exudates, or evidence of obstruction, uvula midline. Mucous membranes moist. Neck: Trachea midline, no thyromegaly or masses palpated, and no cervical lymphadenopathy. Supple, full range of motion without nuchal rigidity, or vertebral point tenderness. No Meningismus. Chest/axilla: Normal chest wall appearance and motion. Nontender with no deformity. No lesions are appreciated. Cardiovascular: Regular rate and rhythm with a normal S1 and S2. No gallops, murmurs, or rubs. Normal PMI, no JVD. No pulse deficits. Respiratory: Lungs have equal breath sounds bilaterally, clear to auscultation and percussion. No rales, rhonchi or wheezes noted. No increased work of breathing, no retractions or nasal flaring. Abdomen/GI: Soft, non-tender, with normal bowel sounds. No distension or tympany. No guarding or rebound. No evidence of tenderness throughout. Back: No spinal tenderness. No costovertebral tenderness. Full range of motion. Female : Normal external genitalia. Skin: Warm, dry with normal turgor. Normal color with no rashes, no lesions, and no evidence of cellulitis. MS/ Extremity: Pulses equal, no cyanosis. Neurovascular intact. Full, normal range of motion. Psych: Awake, alert, with orientation to person, place and time. Behavior, mood, and affect are within normal limits. 15:03 Neuro: Orientation: is normal, appropriate for stated age, no acute changes, Mentation: is normal, appropriate for stated age, no acute changes, Memory: is normal, appropriate for stated age, no acute changes, Cranial nerves: grossly normal, is grossly normal based on the patient's age, no acute changes, Cerebellar function: is grossly normal, is grossly normal based on the patient's age, no acute changes, Motor: moves all fours, strength is normal, Sensation: is normal, Gait: not tested. 15:03 Psych: Behavior/mood is pleasant, cooperative, Affect is calm, Oriented to person, place, time, Patient has no thoughts/intents to harm self or others. Judgement / Insight is normal. Memory is normal. Vital Signs: 13:36 BP 102 / 66; Pulse 73; Resp 18; Temp 98.1; Pulse Ox 96% ; Weight 81.65 kg; Height 5 ft. cordero 7 in. (170.18 cm); 14:47 BP 113 / 66; Pulse 63; Resp 18; Pulse Ox 99% on R/A; cordero 16:15 BP 100 / 51; Pulse 58; Resp 16; Pulse Ox 97% ; cordero 17:21 BP 105 / 63; Pulse 61; Resp 16; Pulse Ox 98% ; ww 13:36 Body Mass Index 28.19 (81.65 kg, 170.18 cm) cordero NIH Stroke Scale Scores: 15:03 NIHSS Score: 0 hannah MDM: 13:51 Patient medically screened. hannah 15:10 Differential diagnosis: cerebral vascular accident, drug overdose, cardiac arrhythmia, hannah seizure, TIA. Data reviewed: vital signs, nurses notes, EMS record, lab test result(s), EKG, radiologic studies, CT scan, plain films. Data interpreted: media monitor: rate is 63 beats/min, rhythm is regular, Pulse oximetry: on room air is 99 %. Test interpretation: by ED physician or midlevel provider: ECG, plain radiologic studies. Counseling: I had a detailed discussion with the patient and/or guardian regarding: the historical points, exam findings, and any diagnostic results supporting the discharge/admit diagnosis, lab results, radiology results, the need for further work-up and treatment in the hospital. 03/09 13:51 Order name: Basic Metabolic Panel; Complete Time: 14:51 hannah 03/09 13:51 Order name: CBC with Diff; Complete Time: 14:51 hannah 03/09 13:51 Order name: LFT's; Complete Time: 14:51 hannah 03/09 13:51 Order name: Magnesium; Complete Time: 14:51 hannah 03/09 13:51 Order name: NT PRO-BNP; Complete Time: 14:51 hannah 03/09 13:51 Order name: PT-INR; Complete Time: 14:51 hannah 03/09 13:51 Order name: Troponin (emerg Dept Use Only); Complete Time: 14:51 hannah 03/09 13:51 Order name: XRAY Chest (1 view); Complete Time: 14:51 [facility] 03/09 13:51 Order name: CT Head Brain wo Cont; Complete Time: 14:51 [facility] 03/09 13:51 Order name: ETOH Level; Complete Time: 14:51 [facility] 03/09 13:51 Order name: Urine Drug Screen [facility] 03/09 15:39 Order name: Urine Dipstick-Ancillary; Complete Time: 15:46 EDMS 03/09 16:59 Order name: COVID-19 SARS RT PCR (Document "Date of Onset" if Symptomatic) 03/09 13:51 Order name: EKG; Complete Time: 13:51 [facility] 03/09 13:51 Order name: Cardiac monitoring; Complete Time: 14:03 [facility] 03/09 13:51 Order name: EKG - Nurse/Tech; Complete Time: 14:07 [facility] 03/09 13:51 Order name: IV Saline Lock; Complete Time: 14:03 [facility] 03/09 13:51 Order name: Labs collected and sent; Complete Time: 14:03 [facility] 03/09 13:51 Order name: O2 Per Protocol; Complete Time: 14:03 [facility] 03/09 13:51 Order name: O2 Sat Monitoring; Complete Time: 14:04 [facility] 03/09 13:51 Order name: Seizure Precautions; Complete Time: 17:54 [facility] Administered Medications: 14:22 Drug: NS 0.9% 500 ml Route: IV; Rate: bolus; Site: right antecubital; ww 14:50 Follow up: IV Status: Completed infusion cordero 16:15 Follow up: IV Status: Completed infusion cordero 14:41 Drug: NS 0.9% 1000 ml Route: IV; Rate: 75 ml/hr; Site: left forearm; cordero 18:46 Follow up: IV Status: Completed infusion cordero 14:41 Drug: Thiamine 100 mg Route: IV; Rate: bolus; Site: left femoral; cordero 14:50 Follow up: IV Status: Completed infusion cordero 16:15 Follow up: IV Status: Completed infusion cordero 16:14 Drug: Potassium Effervescent Tablet 25 mEq Route: PO; cordero 16:15 Follow up: Response: No adverse reaction cordero 16:14 Drug: Pepcid (famotidine) 20 mg Route: IVP; Site: right antecubital; cordero 16:15 Follow up: Response: No adverse reaction cordero 16:14 Drug: Ativan (LORazepam) 0.5 mg Route: IVP; Site: right antecubital; cordero 16:15 Follow up: Response: No adverse reaction cordero 18:45 Follow up: Response: No adverse reaction cordero 16:14 Drug: Keppra (levETIRAcetam) 1000 mg Route: IV; Rate: per protocol; Site: right cordero antecubital; 18:46 Follow up: IV Status: Completed infusion cordero Disposition Summary: 03/09/21 15:36 Hospitalization Ordered Hospitalization Status: Observation hannah Provider: Olegario Bettencourt cha Location: Telemetry/MedSurg (observation) hannah Condition: Fair hannah Problem: new hannah Symptoms: have improved hannah Bed/Room Type: Standard hannah Room Assignment: 214(03/09/21 18:01) eb Diagnosis - Alcohol abuse - history of hannah - Epileptic seizures related to external causes hannah - Hypo-osmolality and hyponatremia hannah - Hypokalemia hannah Forms: - Medication Reconciliation Form hannha - SBAR form hannah NIH Stroke Scale - NIH Stroke Score Date: 03/09/2021 Time: 15:03 Total Score = 0 1a. Level of Consciousness (LOC) - 0(Alert) 1b. Level of Consciousness (LOC) (Month \\T\\ Age) - 0(Both) 1c. LOC Commands (Open \\T\\ Closes Eyes/Sourcing Associate) - 0(Both) 2. Best Gaze (Lateral Gaze Paresis) - 0(Normal) 3. Visual Field Loss - 0(No visual loss) 4. Facial Palsy - 0(Normal) 5a. Left Arm: Motor (10-second hold) - 0(No drift) 5b. Right Arm: Motor (10-second hold) - 0(No drift) 6a. Left Leg: Motor (5-second hold - always test supine) - 0(No drift) 6b. Right Leg: Motor (5-second hold - always test supine) - 0(No drift) 7. Limb Ataxia (finger/nose \\T\\ heel/richards - test with eyes open) - 0(Absent) 8. Sensory Loss (pinprick arms/legs/face) - 0(Normal) 9. Best Language: Aphasia (description/naming/reading) - 0(No aphasia) 10. Dysarthria (speech clarity - read or repeat words) - 0(Normal) 11. Extinction and Inattention (visual/tactile/auditory/spatial/personal) - 0(No abnormality) Initials: hannah Signatures: Dispatcher [employer] Diego Osorio MD MD cha Botello, Elizabeth eb Wood, Whitney, RN RN ww Au-Stager, Heather, RN RN ha Corrections: (The following items were deleted from the chart) 18:01 15:36 hannah stoll
[2021-03-09 15:40] LABS: Urine Blood Negative (Negative); Urine Glucose Negative (Negative); Urine Protein 1+ (Negative); Urine pH 5.5 (5.0-7.0)
[2021-03-09 16:02] LABS: Barbiturates NEGATIVE (NEGATIVE); Benzodiazepines NEGATIVE (NEGATIVE); Cocaine NEGATIVE (NEGATIVE); METHAMPHETAM NEGATIVE (NEGATIVE); Methadone NEGATIVE (NEGATIVE); Opiates NEGATIVE (NEGATIVE); Phencyclidine NEGATIVE (NEGATIVE); THC Cannibis NEGATIVE (NEGATIVE)
[2021-03-09] MEDS ORDERED: LORazepam 2 MG/ML VIAL ONE (16:05)
[2021-03-09] MEDS ORDERED: NA CHLORIDE 0.9% 250 ML ONE (16:07)
[2021-03-09] MEDS ORDERED: LEVETIRACETAM 500 MG/5 ML VIAL IV ONE (16:07)
[2021-03-09] MEDS ORDERED: FAMOTIDINE 20 MG/2 ML VIAL IV ONE (16:07)
[2021-03-09] MEDS ORDERED: POTASSIUM 25 MEQ EFFERV TAB ONE (16:07)
--- NOTE | 2021-03-09 17:24 | P.HP ---
Certification for Inpatient Patient admitted to: Inpatient With expected LOS: >2 Midnights Practitioner: I am a practitioner with admitting privileges, knowledge of patient current condition, hospital course, and medical plan of care. Services: Services provided to patient in accordance with Admission requirements found in Title 42 Section 412.3 of the Code of Federal Regulations Patient History Date of Service: 03/09/21 Reason for admission: Seizures History of Present Illness: 60-year-old woman with a history of hypothyroidism, alcohol induced seizures was brought to the emergency department due to seizure episode. Per report of seizures were witnessed by her mother. Patient was somnolent and could not provide any history. There was no family member in the room to provide any history. Blood work done in the ED showed sodium of 125. Patient was in the ED yesterday with a complaint of dizziness. Her sodium level at that time was 119. She signed out AGAINST MEDICAL ADVICE after she was informed she needs to be hospitalized. Head CT negative, chest x-ray unremarkable. Her alcohol level is less than 10. Patient is hospitalized for further management of seizures and hyponatremia Allergies nitroglycerin Adverse Reaction (Verified 07/05/18 06:27) severe hypotension Home Medications: OXcarbazepine [Oxcarbazepine] 600 mg PO DAILY 02/23/20 Risperidone [Risperdal] 2 tab PO BID 02/23/20 Levothyroxine [Synthroid*] 137 mcg PO DAILY 10/24/20 Liothyronine Sodium [Cytomel] 5 mcg PO DAILY 10/24/20 Trazodone [Desyrel*] 100 mg PO BEDTIME 10/24/20 Venlafaxine HCl [Effexor] 100 mg PO BID 10/24/20 Amlodipine [Norvasc] 2.5 mg PO DAILY 30 Days #30 tab 10/25/20 Furosemide [Lasix*] 20 mg PO DAILY 30 Days #30 tab 10/25/20 Sodium Chloride Tab [Sodium Chloride*] 1 gm PO BID 30 Days #60 tab 10/25/20 - Past Medical/Surgical History Diabetic: No -: Hepatitis -: Anxiety -: HTN -: Hypothyroidism -: Alcoholic induced seizures -: Thyroidectomy -: Plastic surgery breast -: hernia repair - Family History Mother -: Hypertension, Diabetes, Cancer Notes: Thyroid, Knee replacement Father -: Heart disease, Hypertension, Diabetes - Social History Alcohol use: Yes CD- Drugs: No Caffeine use: Yes Review of Systems is unable to be obtained Physical Examination - Physical Exam General: In no apparent distress, Other (Somnolent) HEENT: PERRLA, Mucous membr. moist/pink, EOMI, Sclerae nonicteric Neck: Supple, JVD not distended Respiratory: Clear to auscultation bilaterally, Normal air movement Cardiovascular: No edema, Regular rate/rhythm, Normal S1 S2 Capillary refill: <2 Seconds Gastrointestinal: Normal bowel sounds, Soft and benign, Non-distended, No tenderness Musculoskeletal: No swelling, No tenderness Integumentary: No rashes, No erythema, No cyanosis Neurological: Normal speech, Normal strength at 5/5 x4 extr, Cranial nerves 3-12 intact Lymphatics: No axilla or inguinal lymphadenopathy - Studies Laboratory Data (last 24 hrs) 03/09/21 14:00: PT 10.7, INR 0.93 03/09/21 14:00: WBC 7.00 D, Hgb 13.2, Hct 38.5, Plt Count 372 03/09/21 14:00: Sodium 125 L, Potassium 3.4 L, BUN 26 H, Creatinine 1.43 H, Glucose 145 H, Magnesium 2.1, Total Bilirubin 0.2, AST 29, ALT 41, Alkaline Phosphatase 111 Assessment and Plan - Problems (Diagnosis) (1) Alcohol abuse Current Visit: Yes Status: Acute (2) Hypothyroidism Current Visit: Yes Status: Acute (3) Acute metabolic encephalopathy Current Visit: No Status: Acute (4) Hyponatremia Current Visit: No Status: Acute (5) Seizure disorder Current Visit: No Status: Acute (6) Acute renal failure Current Visit: Yes Status: Acute - Plan Patient with a history of alcohol-related seizure. Also present with hyponatremia likely related to alcohol. Hyponatremia could also be related to also Oxcarbazepine Admit to the medical floor. Hydrate with normal saline. Monitor BMP every 4 hours. We will also put her on fluid restriction given the possibility of drug-induced SIADH. We will start IV Keppra due to breakthrough seizures. Continue oxcarbazepine. Neurology consult Neurochecks. Check TSH. Continue home dose Synthroid for now. Keep n.p.o. overnight. - Advance Directives Does patient have a Living Will: No Does patient have a Durable POA for Healthcare: No
[2021-03-09] MEDS ORDERED: ACETAMINOPHEN 500 MG TAB PO PRN (19:09)
[2021-03-09] MEDS ORDERED: chlordiazePOXIDE HCl 5 MG CAP PO PRN (19:48)
[2021-03-09 20:38] LABS: Potassium 3.6 mmol/L (3.5-5.1)
[2021-03-09] MEDS: NA CHLORIDE 0.9% 1,000 ML IV SCH (21:30)
[2021-03-09] MEDS: LORazepam 2 MG/ML VIAL IV PRN (21:31)
[2021-03-09 23:05] VITALS: BMI 28.3
[2021-03-09 23:22] LABS: Potassium 3.3 mmol/L (3.5-5.1)
[2021-03-10] MEDS: KCL 20 MEQ/100 mL IVPB 20 MEQ/100 ML BAG IV SCH ×2 (00:28→02:10)
[2021-03-10] MEDS: LORazepam 2 MG/ML VIAL IV PRN ×2 (01:18→11:20)
[2021-03-10 01:19] LABS: Urine Appearance CLEAR (Clear); Urine Bilirubin NEGATIVE (Negative); Urine Blood NEGATIVE (Negative); Urine Color YELLOW (Yellow); Urine Glucose NEGATIVE (Negative); Urine Protein NEGATIVE (Negative); Urine Specific Gravity 1.025 (1.005-1.030); Urine Urobilinogen 0.2 mg/dL (0.2-1.0)
[2021-03-10 01:28] LABS: Urine Microscopic Reflex NO UMIC
[2021-03-10 02:00] VITALS: O2SAT 92
[2021-03-10 03:37] LABS: BUN Blood Urea Nitrogen 16 mg/dL (7-18); Bicarbonate 25 mmol/L (21-32); Glucose Level 108 mg/dL (74-106); Sodium Level 129 mmol/L (136-145)
[2021-03-10] MEDS: ONDANSETRON 4 MG/2 ML VIAL IV PRN ×2 (04:43→12:09)
[2021-03-10] MEDS ORDERED: MORPHINE 2 MG/ML SYR IV ONE (05:34)
[2021-03-10] MEDS: NA CHLORIDE 0.9% 1,000 ML IV SCH (05:53)
[2021-03-10 06:14] LABS: Absolute Lymphocytes (CBC) 2.3 K/uL (0.7-4.9); Lymphocytes % 30.2 % (15.3-44.8); MPV 6.5 fL (7.6-11.3); RBC Red Blood Cell Count 3.81 M/uL (3.86-4.86)
[2021-03-10 06:55] LABS: ALT/SGPT 34 U/L (12-78); AST/SGOT 25 U/L (15-37); Albumin 3.1 g/dL (3.4-5.0); Alkaline Phosphatase 85 U/L (45-117); BUN Blood Urea Nitrogen 13 mg/dL (7-18); Bicarbonate 23 mmol/L (21-32); Bilirubin Total 0.3 mg/dL (0.2-1.0); Glucose Level 123 mg/dL (74-106); HDL Cholesterol 45 mg/dL (40-60); LDL Cholesterol, Calculated 112 (<130); Phosphorus 2.8 mg/dL (2.5-4.9); Protein, Total 6.8 g/dL (6.4-8.2); Sodium Level 129 mmol/L (136-145)
[2021-03-10] MEDS ORDERED: CLONIDINE HCL 0.3 MG TAB PO PRN (08:06)
[2021-03-10] MEDS ORDERED: clonazePAM 1 MG TAB PO PRN (08:06)
[2021-03-10] MEDS ORDERED: PROPRANOLOL HCL 10 MG TAB PO PRN (08:06)
[2021-03-10] MEDS ORDERED: NA CHLORIDE 0.9% 0 ML ONE (08:15)
[2021-03-10] MEDS ORDERED: ENOXAPARIN 40 MG/0.4 ML SQ SCH (09:00)
[2021-03-10] MEDS ORDERED: HOME MED 1 EA UNK (Levothyroxine Sodium [Synthroid] 137 MCG Tablet) PO SCH (09:00)
[2021-03-10] MEDS ORDERED: levETIRAcetam 500 MG in NA CHLORIDE 0.9% 100 ML IV SCH (09:00)
[2021-03-10] MEDS ORDERED: METOCLOPRAMIDE 5 MG TAB PO SCH (09:00)
[2021-03-10] MEDS ORDERED: LOSARTAN/HCTZ 50-12.5 PO SCH (09:00)
[2021-03-10] MEDS ORDERED: PANTOPRAZOLE 40MG TABLET PO SCH (09:00)
[2021-03-10] MEDS ORDERED: OXCARBAZEPINE 600 MG PO SCH ×2 (09:00→17:30)
[2021-03-10] MEDS ORDERED: RISPERIDONE 1 MG TABLET PO SCH (09:00)
--- NOTE | 2021-03-10 10:29 | P.PN ---
Subjective Date of Service: 03/10/21 Chief Complaint: Seizures Patient appears confused and wandering. No seizures since admission. Physical Examination - Vital Signs Temperature: 98.3 F Blood Pressure: 205/93 Pulse: 87 Respirations: 19 Pulse Ox (%): 97 - Physical Exam General: Confused, Other (Awake) HEENT: Mucous membr. moist/pink Neck: JVD not distended Respiratory: Clear to auscultation bilaterally, Normal air movement Cardiovascular: No edema, Regular rate/rhythm, Normal S1 S2 Gastrointestinal: Normal bowel sounds, Soft and benign, Non-distended, No tenderness Musculoskeletal: No swelling Integumentary: No rashes Neurological: Normal strength at 5/5 x4 extr - Studies Laboratory Data (last 24 hrs) 03/09/21 14:00: PT 10.7, INR 0.93 03/09/21 14:00: WBC 7.00 D, Hgb 13.2, Hct 38.5, Plt Count 372 03/09/21 14:00: Sodium 125 L, Potassium 3.4 L, BUN 26 H, Creatinine 1.43 H, Glucose 145 H, Magnesium 2.1, Total Bilirubin 0.2, AST 29, ALT 41, Alkaline Phosphatase 111 Assessment And Plan - Current Problems (Diagnosis) (1) Alcohol abuse Current Visit: Yes Status: Acute (2) Hypothyroidism Current Visit: Yes Status: Acute (3) Acute metabolic encephalopathy Current Visit: No Status: Acute (4) Hyponatremia Current Visit: No Status: Acute (5) Seizure disorder Current Visit: No Status: Acute (6) Acute renal failure Current Visit: Yes Status: Acute - Plan Patient with a history of alcohol-related seizure. Also present with hyponatremia likely related to alcohol. Hyponatremia could also be related to also Oxcarbazepine by SIADH. Hyponatremia is improving. Continue IV normal saline and fluid restriction Hydrate with normal saline. Monitor BMP every 4 hours. Continue IV Keppra. Continue oxcarbazepine. Neurology consult is pending Neurochecks. TSH within normal limit. Continue home dose Synthroid. Resume diet.
[2021-03-10 10:33] LABS: BUN Blood Urea Nitrogen 9 mg/dL (7-18); Bicarbonate 26 mmol/L (21-32); Glucose Level 133 mg/dL (74-106); Potassium 3.9 mmol/L (3.5-5.1); Sodium Level 130 mmol/L (136-145)
[2021-03-10 13:15] VITALS: BP 200/87; TEMP 97.3
[2021-03-10 14:36] LABS: BUN Blood Urea Nitrogen 7 mg/dL (7-18); Bicarbonate 27 mmol/L (21-32); Glucose Level 213 mg/dL (74-106); Potassium 3.4 mmol/L (3.5-5.1); Sodium Level 130 mmol/L (136-145)
[2021-03-10] MEDS ORDERED: OXcarbazepine 150 MG TAB PO SCH (17:30)
[2021-03-10] MEDS ORDERED: BENZTROPINE 1 MG TAB PO SCH (21:00)
[2021-03-10] MEDS ORDERED: DOXEPIN HCL 25 MG CAP PO SCH (21:00)
[2021-03-11] MEDS ORDERED: OXcarbazepine 150 MG TAB PO SCH (09:00)
[2021-03-11] MEDS ORDERED: LEVOTHYROXINE SOD 0.125 MG TAB PO SCH (09:00)
[2021-03-11] MEDS ORDERED: LEVOTHYROXINE SOD 0.025 MG TAB PO SCH (09:00)
--- NOTE | 2021-03-11 19:17 | P.DS ---
Admission Date: 03/09/21 Discharge Date: 03/10/21 Disposition: AMA-LEFT AGAINST MEDICAL ADVIC Reason for Admission: Seizures - Problems (1) Alcohol abuse Status: Acute (2) Hypothyroidism Status: Acute (3) Acute metabolic encephalopathy Status: Acute (4) Hyponatremia Status: Acute (5) Seizure disorder Status: Acute (6) Acute renal failure Status: Acute Brief History of Present Illness: 60-year-old woman with a history of hypothyroidism, alcohol induced seizures was brought to the emergency department due to seizure episode. Per report of seizures were witnessed by her mother. Patient was somnolent and could not provide any history. There was no family member in the room to provide any history. Blood work done in the ED showed sodium of 125. Patient was in the ED yesterday with a complaint of dizziness. Her sodium level at that time was 119. She signed out AGAINST MEDICAL ADVICE after she was informed she needs to be hospitalized. Head CT negative, chest x-ray unremarkable. Her alcohol level is less than 10. Patient is hospitalized for further management of seizures and hyponatremia Hospital Course: Patient with a history of alcohol-related seizure. Also present with hyponatremia likely related to alcohol. Hyponatremia could also be related to also Oxcarbazepine by SIADH. Patient admitted today medical floor and started on IV normal saline and fluid restriction with BMP check every 4 hours. He was also placed on IV Keppra for seizures and continued oxcarbazepine. Neurology consulted Patient became more awake and decided to sign out AGAINST MEDICAL ADVICE. Vital Signs/Physical Exam: Temp Pulse Resp BP Pulse Ox 97.3 F 99 H 20 200/87 H 97 03/10/21 13:13 03/10/21 13:13 03/10/21 13:13 03/10/21 13:13 03/10/21 13:13 Laboratory Data at Discharge: WBC 7.50 K/uL (4.3-10.9) 03/10/21 05:43 Hgb 12.2 g/dL (12.0-15.0) 03/10/21 05:43 Hct 35.0 % (36.0-45.0) L 03/10/21 05:43 Plt Count 284 K/uL (152-406) D 03/10/21 05:43 PT 10.7 SECONDS (9.5-12.5) 03/09/21 14:00 INR 0.93 03/09/21 14:00 Sodium Cancelled 03/10/21 18:00 Potassium Cancelled 03/10/21 18:00 BUN Cancelled 03/10/21 18:00 Creatinine Cancelled 03/10/21 18:00 Glucose Cancelled 03/10/21 18:00 Phosphorus 2.8 mg/dL (2.5-4.9) 03/10/21 05:43 Magnesium 2.0 mg/dL (1.8-2.4) 03/10/21 05:43 Total Bilirubin 0.3 mg/dL (0.2-1.0) 03/10/21 05:43 AST 25 U/L (15-37) 03/10/21 05:43 ALT 34 U/L (12-78) 03/10/21 05:43 Alkaline Phosphatase 85 U/L (45-117) 03/10/21 05:43 Triglycerides 178 mg/dL (<150) H 03/10/21 05:43 Cholesterol 193 mg/dL (<200) 03/10/21 05:43 HDL Cholesterol 45 mg/dL (40-60) 03/10/21 05:43 Cholesterol/HDL Ratio 4.29 03/10/21 05:43 Home Medications: Benztropine Mesylate [Cogentin] 0.5 mg PO BEDTIME 03/10/21 Doxepin HCl [Sinequan] 50 mg PO BEDTIME 03/10/21 Levothyroxine Sodium [Synthroid] 137 mcg PO DAILY 03/10/21 Linaclotide [Linzess] 72 mcg PO DAILYPRN PRN 03/10/21 Losartan/Hydrochlorothiazide [Losartan-Hctz 100-25 mg Tab] 1 each PO DAILY 03/10/21 Metformin HCl [Glucophage] 500 mg PO BIDWM 03/10/21 Metoclopramide HCl [Reglan] 10 mg PO QID 03/10/21 OXcarbazepine [Trileptal] 2 tab PO DAILY AFTER SUPPER 03/10/21 OXcarbazepine [Trileptal] 600 mg PO DAILY 03/10/21 Omeprazole [Prilosec] 40 mg PO DAILY 03/10/21 Ondansetron HCl [Zofran] 4 mg PO Q8HP PRN 03/10/21 Propranolol [Inderal] 10 mg PO BIDP PRN 03/10/21 Risperidone [Risperdal] 2 mg PO BID 03/10/21 Zolpidem Tartrate [Ambien] 10 mg PO BEDTIME 03/10/21 cloNIDine HCL [Catapres] 0.3 mg PO Q8HP PRN 03/10/21 clonazePAM [Klonopin] 1 mg PO TIDP PRN 03/10/21 Followup: NAOMI SALGADO [Primary Care Provider] -
== END 2021-03-10 14:59 | disposition left against medical advice (07) | DRG 100 ==
LOC: ER 13:35 → ERHOLD 17:29 → 2ND 18:36
PROVIDERS: ADMIT Internal Medicine; ATTEND Internal Medicine
DX: G40.909 Epilepsy, unspecified, not intractable, without status epilepticus (principal); G93.41 Metabolic encephalopathy; E22.2 Syndrome of inappropriate secretion of antidiuretic hormone; N17.9 Acute kidney failure, unspecified; E03.9 Hypothyroidism, unspecified; F17.210 Nicotine dependence, cigarettes, uncomplicated; E87.6 Hypokalemia; F10.10 Alcohol abuse, uncomplicated; I10 Essential (primary) hypertension; Z88.8 Allergy status to other drugs, medicaments and biological substances; Z79.899 Other long term (current) drug therapy; Z53.29 Procedure and treatment not carried out because of patient's decision for other reasons; Z79.890 Hormone replacement therapy; Z20.822 Contact with and (suspected) exposure to COVID-19
CPT/HCPCS: 0240U; 36415; 70450; 70496; 70498; 71045; 74177; 80048; 80053; 80061; 80076; 80307; 80320; 81003; 82140; 82550; 82565; 82947; 83690; 83735; 83880; 84100; 84443; 84484; 85025; 85610; 85730; 93005; 96374; 96375; 99284; J1650; J1953; J2270; J2405; J3480; J7030; J7050; J8597; Q9967; U0003

== ENCOUNTER 2021-03-17 08:26 | Emergency (ER) | payer OTHER ==
--- OUTSIDE RECORDS SUMMARY | 2021-03-17 08:28 | XMS REPORT | Continuity of Care Document ---
:1960 Author Organization [facility] t Address [address] [place] [address] Care Team Providers Name Role Phone Sharpless Primary Care Physician RADHA SIMPSON Attending Clinician Unavailable RADHA SIMPSON Attending Clinician Unavailable Doctor Unassigned, Name Attending Clinician Unavailable RAGHU Attending Clinician Unavailable Nazanin CLARK A Attending Clinician Payers Payer Name Policy Type Policy Number Effective Date Expiration Date S [facility] STAR [id number] 2017 00:00:00 PLUS Problems This patient has no known problems. Allergies, Adverse Reactions, Alerts Allergy Allergy Status Severity Reaction(s) Onset Inactive Treating Comm ents Source Name Type Date Date Clinician NITRO DRUG Active Other-Cmnt 2019-0 Univer s TRANSDER 07-27 ity of MAL 00:00: [address] [place] ACETAMIN DRUG Active Other-Cmnt 2019-0 Univ ers OPHEN INGREDI 07-27 ity of 00:00: [address] Social History Social Habit Start Date Stop Date Quantity Comments Source Sex Assigned At [facility] Alcohol intake 2016-05-01 2016-05-01 Current [facility] 00:00:00 00:00:00 non-drinker of Medical nter alcohol (finding) Smoking Status Start Date Stop Date Source Current every day smoker 2016-05-01 00:00:00 [facility] Medications Ordered Filled Start Stop Current Ordering Indication Dosage Frequency Signature Comments Components Source Medication Medication Date Date Medication? Clinician (SIG) Name Name OXcarbazepi Yes 600mg [id number] Take [address] ne 2-23 [id number] mg by [facility] - (TRILEPTAL) 10:23: 3D [...] 2020-08-03 2020-08-03 Outpatient MATT VÁSQUEZ [facility] [id number] Univers 10:00:00 10:00:00 MATT SIMPSON [id number] [facility] 2020-08-03 2020-08-03 Outpatient MATT VÁSQUEZ [facility] [id number] Univers 10:00:00 10:00:00 MATT SIMPSON [facility] 2020-07-25 2020-07-25 Orders Doctor ABE [id number] 00:00:00 00:00:00 Only Unassigned, BK [id number] [place] [facility] [id number] 2019-09-26 2019-09-26 Outpatient Bertin KIRSHNAMURTHY [facility] [id number] Univers 16:00:00 16:00:00 WALLY [facility] 2019-09-26 2019-09-26 [facility] [id number] Univers 16:00:00 16:00:00 WALLY yeager [facility] 2018-10-21 2018-10-21 Telephone [facility], [facility] [id number] 00:00:00 00:00:00 Natacha Nguyen [id number] Ade [id number] [facility] [id number] [facility] 204 [facility] Results This patient has no known results.
[2021-03-17] MEDS ORDERED: ONDANSETRON 4 MG/2 ML VIAL ONE (09:55)
[2021-03-17] MEDS ORDERED: MORPHINE 4 MG/ML SYR ONE (09:55)
[2021-03-17] MEDS ORDERED: FOLIC ACID 1 MG, MULTIVITAMINS INJ 10 ML, THIAMINE HCL 100 MG in NA CHLORIDE 0.9% 1,000 ML IV ONE (10:00)
--- NOTE | 2021-03-17 10:10 | RAD REPORT ---
EXAM DESCRIPTION: CT - Abdomen Pelvis W Contrast - 03/17/2021 9:57 am CLINICAL HISTORY: Abdominal pain COMPARISON: February 2021 TECHNIQUE: Computed axial tomography of the abdomen pelvis was obtained. 100 cc Isovue-300 was admin istered intravenously. Oral contrast was not requested which limits evaluation of bowel. All CT scans are performed using dose optimization technique as appropriate and may include automated exposure control or mA/KV adjustment according to patient size. FINDINGS: Small to moderate hiatal hernia. Small hepatic cysts. Spleen, pancreas, adrenal and kidneys appear unremarkable. There is no evidence of diverticulitis. Normal appendix. IMPRESSION: No acute abnormality is displayed.
[2021-03-17 10:16] LABS: Urine Bacteria 20-50 /HPF (<20); Urine RBC <5 /HPF (NONE SEEN)
[2021-03-17 10:17] LABS: Urine Mucus 2+ /HPF (NONE SEEN)
[2021-03-17 10:52] LABS: ALT/SGPT 43 U/L (12-78); AST/SGOT 26 U/L (15-37); Albumin 3.4 g/dL (3.4-5.0); Alkaline Phosphatase 119 U/L (45-117); BUN Blood Urea Nitrogen 13 mg/dL (7-18); Bicarbonate 25 mmol/L (21-32); Bilirubin Direct < 0.1 mg/dL (0-0.2); Bilirubin Total 0.1 mg/dL (0.2-1.0); Glucose Level 112 mg/dL (74-106); Lipase 92 U/L (73-393); Potassium 3.8 mmol/L (3.5-5.1); Protein, Total 7.3 g/dL (6.4-8.2); Sodium Level 129 mmol/L (136-145)
[2021-03-17] MEDS ORDERED: PROMETHAZINE INJ 25 MG/ML AMP ONE (10:58)
[2021-03-17] MEDS ORDERED: HYDROMORPHONE HCL 1 MG/ML INJ ONE (10:58)
--- NOTE | 2021-03-17 11:17 | RAD REPORT ---
EXAM DESCRIPTION: US - Abdomen Exam Limited - 03/17/2021 10:24 am CLINICAL HISTORY: Abdominal pain. COMPARISON: None. FINDINGS: The gallbladder is contracted. 2 small echogenic structures extend from the gallbladder wa ll with comet tail artifact. Gallbladder wall appears mildly thickened. The biliary tree is normal caliber. IMPRESSION: 2 small echogenic structures extend from the gallbladder wall with comet tail artifact. These could indicate cholesterol polyps or adenomyomatosis Mild gallbladder wall thickening probably secondary to the gallbladder being contracted. This could b e secondary to chronic cholecystitis or be a normal finding if the patient was not NPO.
[2021-03-17 11:49] LABS: Absolute Lymphocytes (CBC) 2.8 K/uL (0.7-4.9); Hematocrit 38.7 % (36.0-45.0); Lymphocytes % 31.8 % (15.3-44.8); MPV 7.2 fL (7.6-11.3); RBC Red Blood Cell Count 4.16 M/uL (3.86-4.86)
--- NOTE | 2021-03-17 12:17 | ER ---
Nurse's Notes [facility] Name: Jaimie Amanda Age: 60 yrs Sex: Female : 1960 Arrival Date: 03/17/2021 Time: 08:26 Bed 24 Private MD: Diagnosis: Disease of gallbladder, unspecified-cyst Presentation: 03/17 08:32 Chief complaint: Patient states: Right lower quadrant abdominal pain that started ww yesterday and has gotten worse overnight. Complains of nausea. Denies vomiting or diarrhea. Coronavirus screen: Vaccine status: Patient reports receiving the 2nd dose of the covid vaccine. Client denies travel out of the [place] in the last 14 days. Ebola Screen: Patient negative for fever greater than or equal to 101.5 degrees Fahrenheit, and additional compatible Ebola Virus Disease symptoms Patient denies exposure to infectious person. Initial Sepsis Screen: Does the patient meet any 2 criteria? RR > 20 per min. Does the patient have a suspected source of infection? No. Patient's initial sepsis screen is negative. Risk Assessment: Do you want to hurt yourself or someone else? Patient reports no desire to harm self or others. Onset of symptoms was March 16, 2021. 08:32 Method Of Arrival: Ambulatory ww 08:32 Acuity: ZHEN 3 ww Triage Assessment: 08:36 General: Appears uncomfortable, Behavior is cooperative, appropriate for age. Pain: ww Complains of pain in right lower quadrant. EENT: No deficits noted. No signs and/or symptoms were reported regarding the EENT system. Neuro: Level of Consciousness is awake, alert, obeys commands, Oriented to person, place, time, situation, Appropriate for age Wallpaper Consultant are equal bilaterally. Cardiovascular: No deficits noted. Denies chest pain. Respiratory: No deficits noted. Airway is patent Respiratory effort is even, unlabored, Respiratory pattern is regular, symmetrical. GI: Abdomen is non-distended, Abdomen is tender to palpation in right lower quadrant. : No deficits noted. No signs and/or symptoms were reported regarding the genitourinary system. Derm: No deficits noted. No signs and/or symptoms reported regarding the dermatologic system. Skin is intact, Skin is pink, warm \T\ dry. Musculoskeletal: No deficits noted. No signs and/or symptoms reported regarding the musculoskeletal system. Historical: - Allergies: 08:36 No Known Allergies; ww - Home Meds: 08:36 Synthroid Oral [Active]; ww - PMHx: 08:36 Hypertensive disorder; Hypothyroidism; ww - Immunization history:: Client reports receiving the 2nd dose of the Covid vaccine. - Social history:: Smoking status: Patient reports the use of cigarette tobacco products, smokes one-half pack cigarettes per day, Patient/guardian denies using alcohol, street drugs, The patient lives with family. - Family history:: not pertinent. Screenin:38 Abuse screen: Denies threats or abuse. Denies injuries from another. Nutritional ww screening: No deficits noted. Tuberculosis screening: No symptoms or risk factors identified. Fall Risk None identified. Assessment: 08:59 General: Appears in no apparent distress. Behavior is calm, cooperative. Neuro: No eo2 deficits noted. Level of Consciousness is awake, alert, obeys commands, Oriented to person, place, time. Cardiovascular: Denies chest pain. Respiratory: Reports shortness of breath. GI: Bowel sounds present X 4 quads. Reports upper abdominal pain, RUQ and RLQ abd pain onset yesterday, denies N/V/D, reports pain went on all night. : No signs and/or symptoms were reported regarding the genitourinary system. Vital Signs: 08:32 BP 153 / 87; Pulse 97; Resp 18; Temp 98.5(TE); Pulse Ox 97% on R/A; Weight 74.84 kg; ww Height 5 ft. 7 in. (170.18 cm); Pain 9/10; 09:21 BP 153 / 84; Pulse 91; Resp 17; Pulse Ox 97% ; Pain 9/10; eo2 10:00 BP 162 / 79; Pulse 76; Resp 17; Pulse Ox 98% ; Pain 10/10; eo2 11:08 BP 183 / 86; Pulse 79; Resp 17; Pulse Ox 99% ; Pain 10/10; eo2 11:48 BP 177 / 110; Pulse 85; Resp 17; Pulse Ox 98% ; Pain 9/10; eo2 12:33 BP 178 / 85; Pulse 86; Resp 17; Pulse Ox 99% ; Pain 8/10; eo2 08:32 Body Mass Index 25.84 (74.84 kg, 170.18 cm) ED Course: 08:26 Patient arrived in ED. am2 08:36 Triage completed. ww 08:36 Arm band placed on left wrist. ww 08:40 Joseph Thompson MD is Attending Physician. ma2 08:41 Norma Roger, CATY is Primary Nurse. eo2 08:59 Patient has correct armband on for positive identification. Pulse ox on. NIBP on. Noise eo2 minimized. 08:59 No provider procedures requiring assistance completed. eo2 09:30 Inserted saline lock: 20 gauge in right antecubital area, using aseptic technique. eo2 Blood collected. 09:54 Urine Microscopic Only Sent. eo2 09:54 Basic Metabolic Panel Sent. eo2 09:54 CBC with Diff Sent. eo2 09:54 Hepatic Function Sent. eo2 09:55 Lipase Sent. eo2 09:57 CT Abd/Pelvis - IV Contrast Only In Process Unspecified. EDMS 10:20 Lab(s) recollected, by me, sent to lab. dh3 10:24 US Abdomen Limited In Process Unspecified. EDMS 12:16 Sai Werner MD is Referral Physician. ma2 12:17 Arsenio Smith MD is Referral Physician. ma2 13:02 IV discontinued, intact. eo2 Administered Medications: 10:08 Drug: morphine 4 mg Route: IVP; Site: right antecubital; eo2 10:53 Follow up: Response: No adverse reaction; Pain is increased eo2 10:08 Drug: Zofran (Ondansetron) 4 mg Route: IVP; Site: right antecubital; eo2 10:53 Follow up: Response: No adverse reaction; Nausea is increased eo2 10:12 Drug: Banana Bag - (NS 0.9% 1000 ml, foLIC Acid 1 mg, Thiamine 100 mg, Multivitamin 1 eo2 amp) {Note: infuse over 3 -[address] Thompson, rate going at 255ml/hr.} Route: IV; Rate: calculated rate; Infused Over: 3 hrs; Site: right antecubital; 13:01 Follow up: Response: No adverse reaction; IV Status: Completed infusion; Order to eo2 discontinue infusion; IV Intake: 800ml 11:07 Drug: Phenergan (promethazine) 25 mg Route: IVP; Site: right antecubital; eo2 12:10 Follow up: Response: No adverse reaction; Nausea is decreased eo2 11:13 Drug: Dilaudid (HYDROmorphone) 1 mg Route: IVP; Site: right antecubital; eo2 12:10 Follow up: Response: No adverse reaction; Pain is decreased eo2 Intake: 13:01 IV: 800ml; Total: 800ml. eo2 Outcome: 12:17 Discharge ordered by . ma2 13:02 Discharged to home with family, mother picked pt up eo2 13:02 Condition: stable 13:02 Discharge instructions given to patient, Instructed on discharge instructions, follow up and referral plans. medication usage, Demonstrated understanding of instructions, follow-up care, medications, Prescriptions given X 1. 13:03 Patient left the ED. eo2 Signatures: Dispatcher [employer] Elisa Duran am2 Cass Gray 3 Joseph Thompson MD MD ma2 Candelaria Yeboah, RN RN ww Norma Roger RN RN eo2 Corrections: (The following items were deleted from the chart) 08:36 08:36 PSHx: hypothyroidism; vesna ww 10:22 10:12 Banana Bag - (Multivitamin 1 amp, NS 0.9% 1000 ml, Thiamine 100 mg, foLIC Acid 1 eo2 mg) IV at calculated rate in right antecubital eo2 11:54 11:08 Pain 12/16; eo2 eo2
--- NOTE | 2021-03-17 12:17 | EDPHYS ---
Physician Documentation [facility] Name: Jaimie Amanda Age: 60 yrs Sex: Female : 1960 Arrival Date: 03/17/2021 Time: 08:26 Bed 24 Private MD: ED Physician Joseph Thompson HPI: 03/17 09:09 This 60 yrs old Female presents to ER via Ambulatory with complaints of Abdominal Pain. ma2 09:09 The patient presents with abdominal pain. Onset: The symptoms/episode began/occurred ma2 gradually, 2 day(s) ago. Associated signs and symptoms: Pertinent negatives: nausea and vomiting, constipation, dysuria, fever, shortness of breath, vomiting. Severity of pain: At its worst the pain was mild in the emergency department the pain is unchanged. The patient has experienced similar episodes in the past. Patient is here with right upper quadrant abdominal pain, which she had frequent times in the past. Patient drinks alcohol heavily. She had alcohol last night. She was just discharged from the hospital. For the same condition. Historical: - Allergies: 08:36 No Known Allergies; ww - Home Meds: 08:36 Synthroid Oral [Active]; ww - PMHx: 08:36 Hypertensive disorder; Hypothyroidism; ww - Immunization history:: Client reports receiving the 2nd dose of the Covid vaccine. - Social history:: Smoking status: Patient reports the use of cigarette tobacco products, smokes one-half pack cigarettes per day, Patient/guardian denies using alcohol, street drugs, The patient lives with family. - Family history:: not pertinent. ROS: 09:09 Constitutional: Negative for fever, chills, and weight loss, Eyes: Negative for injury, ma2 pain, redness, and discharge. 09:09 All other systems are negative. Exam: 09:09 Constitutional: This is a well developed, well nourished patient who is awake, alert, ma2 and in no acute distress. Head/Face: Normocephalic, atraumatic. Eyes: Pupils equal round and reactive to light, extra-ocular motions intact. Lids and lashes normal. Conjunctiva and sclera are non-icteric and not injected. Cornea within normal limits. Periorbital areas with no swelling, redness, or edema. ENT: Nares patent. No nasal discharge, no septal abnormalities noted. Tympanic membranes are normal and external auditory canals are clear. Oropharynx with no redness, swelling, or masses, exudates, or evidence of obstruction, uvula midline. Mucous membranes moist. Neck: Trachea midline, no thyromegaly or masses palpated, and no cervical lymphadenopathy. Supple, full range of motion without nuchal rigidity, or vertebral point tenderness. No Meningismus. Chest/axilla: Normal chest wall appearance and motion. Nontender with no deformity. No lesions are appreciated. Cardiovascular: Regular rate and rhythm with a normal S1 and S2. No gallops, murmurs, or rubs. Normal PMI, no JVD. No pulse deficits. Respiratory: Lungs have equal breath sounds bilaterally, clear to auscultation and percussion. No rales, rhonchi or wheezes noted. No increased work of breathing, no retractions or nasal flaring. Abdomen/GI: Soft, non-tender, with normal bowel sounds. No distension or tympany. No guarding or rebound. No evidence of tenderness throughout. Skin: Warm, dry with normal turgor. Normal color with no rashes, no lesions, and no evidence of cellulitis. MS/ Extremity: Pulses equal, no cyanosis. Neurovascular intact. Full, normal range of motion. Neuro: Awake and alert, GCS 15, oriented to person, place, time, and situation. Cranial nerves II-XII grossly intact. Motor strength 5/5 in all extremities. Sensory grossly intact. Cerebellar exam normal. Normal gait. Vital Signs: 08:32 BP 153 / 87; Pulse 97; Resp 18; Temp 98.5(TE); Pulse Ox 97% on R/A; Weight 74.84 kg; ww Height 5 ft. 7 in. (170.18 cm); Pain 9/10; 09:21 BP 153 / 84; Pulse 91; Resp 17; Pulse Ox 97% ; Pain 9/10; eo2 10:00 BP 162 / 79; Pulse 76; Resp 17; Pulse Ox 98% ; Pain 10/10; eo2 11:08 BP 183 / 86; Pulse 79; Resp 17; Pulse Ox 99% ; Pain 10/10; eo2 11:48 BP 177 / 110; Pulse 85; Resp 17; Pulse Ox 98% ; Pain 9/10; eo2 12:33 BP 178 / 85; Pulse 86; Resp 17; Pulse Ox 99% ; Pain 8/10; eo2 08:32 Body Mass Index 25.84 (74.84 kg, 170.18 cm) ww MDM: 08:40 Patient medically screened. ma2 12:15 Differential diagnosis: Irritable bowel syndrome, non-specific abd pain, ma2 Pyelonephritis, Ureterolithiasis. Data reviewed: vital signs, nurses notes. Counseling: I had a detailed discussion with the patient and/or guardian regarding: the historical points, exam findings, and any diagnostic results supporting the discharge/admit diagnosis, the presence of at least one elevated blood pressure reading (>120/80) during this emergency department visit, lab results, radiology results, the need for outpatient follow up. Response to treatment: the patient's symptoms have resolved after treatment. ED course: Patient is here with right-sided abdominal pain mostly upper quadrant, abdomen nontender, pain is resolved at this time, patient drinks alcohol heavily, blood work is unremarkable, images shows gallbladder cyst, will refer to general surgery, as an outpatient. I gave return precautions.. 03/17 09:07 Order name: Basic Metabolic Panel; Complete Time: 11:18 nd03/17 09:07 Order name: CBC with Diff; Complete Time: 12:04 nd03/17 09:07 Order name: Hepatic Function; Complete Time: 11:18 nd03/17 09:07 Order name: Lipase; Complete Time: 11:18 nd03/17 09:07 Order name: CT Abd/Pelvis - IV Contrast Only; Complete Time: 11:18 [facility] 03/17 09:36 Order name: Urine Microscopic Only; Complete Time: 11:18 nd03/17 09:07 Order name: IV Saline Lock; Complete Time: 09:54 2 03/17 09:07 Order name: Labs collected and sent; Complete Time: 09:54 nd03/17 09:07 Order name: US Abdomen Limited; Complete Time: 11:23 [facility] 03/17 10:12 Order name: Labs - recollect needed: recollect all the labs; Complete Time: 10:22 03/17 12:32 Order name: Misc. Order: d/c banana bag; Complete Time: 13:01 [place] Administered Medications: 10:08 Drug: morphine 4 mg Route: IVP; Site: right antecubital; eo2 10:53 Follow up: Response: No adverse reaction; Pain is increased eo2 10:08 Drug: Zofran (Ondansetron) 4 mg Route: IVP; Site: right antecubital; eo2 10:53 Follow up: Response: No adverse reaction; Nausea is increased eo2 10:12 Drug: Banana Bag - (NS 0.9% 1000 ml, foLIC Acid 1 mg, Thiamine 100 mg, Multivitamin 1 eo2 amp) {Note: infuse over 3 -[address] Thompson, rate going at 255ml/hr.} Route: IV; Rate: calculated rate; Infused Over: 3 hrs; Site: right antecubital; 13:01 Follow up: Response: No adverse reaction; IV Status: Completed infusion; Order to eo2 discontinue infusion; IV Intake: 800ml 11:07 Drug: Phenergan (promethazine) 25 mg Route: IVP; Site: right antecubital; eo2 12:10 Follow up: Response: No adverse reaction; Nausea is decreased eo2 11:13 Drug: Dilaudid (HYDROmorphone) 1 mg Route: IVP; Site: right antecubital; eo2 12:10 Follow up: Response: No adverse reaction; Pain is decreased eo2 Disposition Summary: 03/17/21 12:17 Discharge Ordered Location: Home ma2 Condition: Stable ma2 Diagnosis - Disease of gallbladder, unspecified - cyst ma2 Followup: ma2 - With: Sai Werner MD - When: Tomorrow - Reason: Continuance of care Followup: ma2 - With: Arsenio Smith MD - When: Tomorrow - Reason: If symptoms return, Continuance of care Discharge Instructions: - Discharge Summary Sheet ma2 - Biliary Colic, Adult ma2 Forms: - Medication Reconciliation Form ma2 - Thank You Letter ma2 - Antibiotic Education ma2 - Prescription Opioid Use ma2 Prescriptions: - Diclofenac Sodium 75 mg Oral Tablet Sustained Release - take 1 tablet by ORAL route 2 times per day; 30 tablet; Refills: 0, Product ma2 Selection Permitted Signatures: Dispatcher [employer] EDRené French PA PA jmm Alzahri, Mohammad, MD MD ma2 Nikkie Merrill Whitney, RN RN ww Norma Roger RN RN eo2 Corrections: (The following items were deleted from the chart) 08:36 08:36 PSHx: hypothyroidism; ww ww
[2021-03-17 13:12] VITALS: TEMP 98.5
[2021-03-17 13:20] VITALS: BP 178/85; O2SAT 99
== END 2021-03-17 13:03 | disposition home or self-care (01) ==
LOC: ER 08:26
DX: K82.8 Other specified diseases of gallbladder (principal); I10 Essential (primary) hypertension; E03.9 Hypothyroidism, unspecified; F17.210 Nicotine dependence, cigarettes, uncomplicated
CPT/HCPCS: 96365; 85025; 80048; 36415; 82565; 80076; 81015; 83690; 74177; 76705; 96375; 99284; 96366; Q9967; J2550; J3411; J1170; J7030; J2405

== ENCOUNTER 2021-03-24 08:07 | Emergency (ER) | payer OTHER ==
--- OUTSIDE RECORDS SUMMARY | 2021-03-24 08:09 | XMS REPORT | Continuity of Care Document ---
:1960 Author Organization [facility] t Address [address] [place] [address] Care Team Providers Name Role Phone Sharpless Primary Care Physician RADHA SIMPSON Attending Clinician Unavailable RADHA SIMPSON Attending Clinician Unavailable Doctor Unassigned, Name Attending Clinician Unavailable RAGHU Attending Clinician Unavailable Nazanin CLARK A Attending Clinician Payers Payer Name Policy Type Policy Number Effective Date Expiration Date [facility] STAR [id number] 2017 00:00:00 PLUS Problems This patient has no known problems. Allergies, Adverse Reactions, Alerts Allergy Allergy Status Severity Reaction(s) Onset Inactive Treating Comm ents Source Name Type Date Date Clinician NITRO DRUG Active Other-Cmnt 2019-0 Univer s TRANSDER 07-27 ity of MAL 00:00: [address] [place] ACETAMIN DRUG Active Other-Cmnt 2019-0 Univ ers OPHEN INGREDI 07-27 ity of 00:00: [address] Social History Social Habit Start Date Stop Date Quantity Comments Source Sex Assigned At [facility] Alcohol intake 2016-05-01 2016-05-01 Current [facility] 00:00:00 00:00:00 non-drinker of Medical nter alcohol (finding) Smoking Status Start Date Stop Date Source Current every day smoker 2016-05-01 00:00:00 [facility] Medications Ordered Filled Start Stop Current Ordering Indication Dosage Frequency Signature Comments Components Source Medication Medication Date Date Medication? Clinician (SIG) Name Name OXcarbazepi Yes 600mg [id number] Take [address] ne 2-23 [id number] mg by [facility] - (TRILEPTAL) 10:23: 3D [...] Department ID 2020-08-03 2020-08-03 Outpatient MATT VÁSQUEZ [facility] [id number] Univers 10:00:00 10:00:00 MATT SIMPSON [id number] [facility] 2020-08-03 2020-08-03 Outpatient MATT VÁSQUEZ [facility] [id number] Univers 10:00:00 10:00:00 MATT SIMPSON [facility] 2020-07-25 2020-07-25 Orders Doctor ABE [id number] 00:00:00 00:00:00 Only Unassigned, BK [id number] [place] [facility] [id number] 2019-09-26 2019-09-26 Outpatient Bertin KRISHNAMURTHY [facility] [id number] Univers 16:00:00 16:00:00 WALLY [facility] 2019-09-26 2019-09-26 [facility] [id number] Univers 16:00:00 16:00:00 WALLY yeager [facility] 2018-10-21 2018-10-21 Telephone [facility], [facility] [id number] 00:00:00 00:00:00 Natacha Nguyen [id number] [facility] [id number] [facility] [id number] [facility] [address] [facility] Results This patient has no known results.
[2021-03-24 09:40] LABS: Absolute Lymphocytes (CBC) 1.8 K/uL (0.7-4.9); Hematocrit 42.6 % (36.0-45.0); Lymphocytes % 22.3 % (15.3-44.8); MPV 6.4 fL (7.6-11.3); RBC Red Blood Cell Count 4.59 M/uL (3.86-4.86)
[2021-03-24] MEDS ORDERED: FAMOTIDINE 20 MG/2 ML VIAL IV ONE (09:48)
[2021-03-24] MEDS ORDERED: ONDANSETRON 4 MG/2 ML VIAL ONE ×2 (09:48→10:02)
[2021-03-24] MEDS ORDERED: NA CHLORIDE 0.9% 500 ML ONE (09:48)
--- NOTE | 2021-03-24 09:50 | RAD REPORT ---
EXAM DESCRIPTION: CTAbdomen Pelvis W Contrast - 03/24/2021 9:41 am CLINICAL HISTORY: Abdominal pain. ABD PAIN COMPARISON: Chest Pa And Lat (2 Views) dated 11/04/2020; Chest Pa And Lat (2 Views) dated 06/24/2019Ab domen Pelvis W Contrast dated 03/17/2021; Abdomen Pelvis W Contrast dated 03/08/2021; Abdomen Pel vis W Contrast dated 12/01/2020 TECHNIQUE: Biphasic CT imaging of the abdomen and pelvis was performed with 100 ml non-ionic IV cont rast. All CT scans are performed using dose optimization technique as appropriate and may include automated exposure control or mA/KV adjustment according to patient size. FINDINGS: The lung bases are clear.Small hiatal hernia. Liver size is mildly prominent with mild fatty liver suspected. 10 mm low-density lesion is seen ante rior left lobe liver, likely small cyst. The spleen, pancreas adrenal glands and kidneys show no acut e finding. No bowel obstruction, free air, free fluid or abscess. The appendix is normal. No evidence of signi ficant lymphadenopathy. No suspicious bony findings. IMPRESSION: No acute intra-abdominal or pelvic finding.
[2021-03-24] MEDS ORDERED: MORPHINE 4 MG/ML SYR ONE (10:02)
[2021-03-24 10:15] LABS: ALT/SGPT 43 U/L (12-78); Alkaline Phosphatase 129 U/L (45-117); BUN Blood Urea Nitrogen 11 mg/dL (7-18); Bicarbonate 27 mmol/L (21-32); Bilirubin Direct < 0.1 mg/dL (0-0.2); Bilirubin Total 0.2 mg/dL (0.2-1.0); Glucose Level 139 mg/dL (74-106); Lipase 129 U/L (73-393); Protein, Total 8.4 g/dL (6.4-8.2); Sodium Level 130 mmol/L (136-145)
[2021-03-24 10:25] LABS: AST/SGOT 24 U/L (15-37); Potassium 4.6 mmol/L (3.5-5.1)
[2021-03-24 10:27] LABS: Urine Blood Negative (Negative); Urine Glucose Negative (Negative); Urine Protein Negative (Negative); Urine Specific Gravity 1.015 (1.005-1.030)
--- NOTE | 2021-03-24 11:03 | ER ---
Nurse's Notes [facility] Name: Jaimie Amanda Age: 60 yrs Sex: Female : 1960 Arrival Date: 03/24/2021 Time: 08:09 Bed 24 Private MD: Diagnosis: Abdominal pain, unspecified Presentation: 03/24 08:38 Chief complaint: Patient states: right sided abd pain since yesterday. Coronavirus iw screen: At this time, the client does not indicate any symptoms associated with coronavirus-19. Ebola Screen: Patient negative for fever greater than or equal to 101.5 degrees Fahrenheit, and additional compatible Ebola Virus Disease symptoms Patient denies exposure to infectious person. Patient denies travel to an Ebola-affected area in the 21 days before illness onset. No symptoms or risks identified at this time. Initial Sepsis Screen: Does the patient meet any 2 criteria? No. Patient's initial sepsis screen is negative. Does the patient have a suspected source of infection? No. Patient's initial sepsis screen is negative. Risk Assessment: Do you want to hurt yourself or someone else? Patient reports no desire to harm self or others. Onset of symptoms was March 23, 2021. 08:38 Method Of Arrival: Ambulatory iw 08:38 Acuity: ZHEN 3 iw Triage Assessment: 10:08 General: Behavior is calm, cooperative. ab2 Historical: - Allergies: 08:39 No Known Allergies; iw - Home Meds: 08:39 Synthroid Oral [Active]; iw - PMHx: 08:39 Hypothyroidism; Hypertensive disorder; iw - Immunization history:: Adult Immunizations unknown. - Social history:: Smoking status: unknown. Screenin:07 Abuse screen: Denies threats or abuse. Denies injuries from another. Nutritional ab2 screening: No deficits noted. Tuberculosis screening: No symptoms or risk factors identified. Fall Risk None identified. Assessment: 10:05 General: Appears in no apparent distress. Pain: Complains of pain in right upper ab2 quadrant and right lower quadrant Pain currently is 8 out of 10 on a pain scale. 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 Cardiovascular: No deficits noted. Denies chest pain, shortness of breath, Heart tones S1 S2 present Patient's skin is warm and dry. Respiratory: No deficits noted. Airway is patent Denies cough, shortness of breath. GI: Abdomen is round non-distended, Bowel sounds present X 4 quads. Abdomen is tender to palpation in right upper quadrant and right lower quadrant Reports nausea, vomiting. : No deficits noted. No signs and/or symptoms were reported regarding the genitourinary system. EENT: No deficits noted. No signs and/or symptoms were reported regarding the EENT system. Derm: No deficits noted. No signs and/or symptoms reported regarding the dermatologic system. Musculoskeletal: No deficits noted. No signs and/or symptoms reported regarding the musculoskeletal system. Vital Signs: 08:38 BP 170 / 89; Pulse 90; Resp 16; Pulse Ox 95% on R/A; iw 10:07 BP 176 / 86; Pulse 77; Resp 16; Pulse Ox 96% on R/A; Pain 9/10; ab2 11:29 BP 161 / 87; Pulse 80; Resp 16; Pulse Ox 99% on R/A; ab2 ED Course: 08:09 Patient arrived in ED. ds1 08:39 Triage completed. iw 08:40 Arm band placed on. iw 08:41 Blas Garay NP is PHCP. pm1 09:13 Missed attempt(s): 22 gauge in left forearm. antecubital area. mh5 09:39 Therese Logan, RN is Primary Nurse. iw 09:40 CT Abd/Pelvis - IV Contrast Only In Process Unspecified. EDMS 10:07 No provider procedures requiring assistance completed. ab2 10:08 Patient has correct armband on for positive identification. Bed in low position. Call ab2 light in reach. Side rails up X2. 11:03 Tera Raymond MD is Attending Physician. pm1 11:58 IV discontinued, intact, bleeding controlled, No redness/swelling at site. Pressure ab2 dressing applied. Administered Medications: 09:53 Drug: NS 0.9% 500 ml Route: IV; Rate: bolus; Site: right antecubital; iw 10:20 Follow up: IV Status: Completed infusion iw 09:54 Drug: Pepcid (famotidine) 20 mg Route: IVP; Site: right antecubital; iw 10:20 Follow up: Response: No adverse reaction iw 10:05 Drug: morphine 4 mg Route: IVP; Site: right antecubital; ab2 10:15 Follow up: Response: No adverse reaction iw 10:05 Drug: Zofran (Ondansetron) 4 mg Route: IVP; Site: right antecubital; ab2 11:42 Follow up: Response: No adverse reaction ab2 11:08 CANCELLED (Physician Discretion): morphine 4 mg IVP once; RASS on ADMIN: Combtv4, Very pm1 Agttd3, Agttd2, Rstlss1, AlertClm0, Drwsy-1, Lt Sdtn-2, Mod Sdtn-3, Dp Sdtn-4, UnArsble-5 11:28 Drug: Phenergan (promethazine) 12.5 mg Route: IVP; Site: right antecubital; ab2 11:42 Follow up: Response: No adverse reaction ab2 11:28 Drug: Ketorolac 30 mg Route: IVP; Site: right antecubital; ab2 11:42 Follow up: Response: No adverse reaction ab2 Outcome: 11:02 Discharge ordered by . pm1 11:58 Discharged to home ambulatory. ab2 11:58 Condition: good 11:58 Discharge instructions given to patient, Instructed on discharge instructions, follow up and referral plans. medication usage, Demonstrated understanding of instructions, follow-up care, medications, Prescriptions given X 2. 11:59 Patient left the ED. ab2 Signatures: Dispatcher [employer] EDAminah Cabrera ds1 Therese Logan RN RN iw Marinas, Patrick, NP SOUND EQUIPMENT MECHANIC pm1 Angelica Marley [facility] Ike Mauricio ab2
--- NOTE | 2021-03-24 11:03 | EDPHYS ---
Physician Documentation [facility] Name: Jaimie Amanda Age: 60 yrs Sex: Female : 1960 Arrival Date: 03/24/2021 Time: 08:09 Bed 24 Private MD: ED Physician Tera Raymond HPI: 03/24 09:06 This 60 yrs old Female presents to ER via Ambulatory with complaints of Abdominal Pain. pm1 09:06 The patient presents with abdominal pain in the right upper quadrant. pm1 09:06 Onset: The symptoms/episode began/occurred yesterday. The symptoms do not radiate. pm1 Associated signs and symptoms: Pertinent negatives: nausea, vomiting, and diarrhea, chest pain, shortness of breath. The symptoms are described as vague. Modifying factors: The symptoms are alleviated by nothing, the symptoms are aggravated by food. Severity of pain: in the emergency department the pain is unchanged. The patient has experienced similar episodes in the past, several times. The patient has not recently seen a physician. Historical: - Allergies: 08:39 No Known Allergies; iw - Home Meds: 08:39 Synthroid Oral [Active]; iw - PMHx: 08:39 Hypothyroidism; Hypertensive disorder; iw - Immunization history:: Adult Immunizations unknown. - Social history:: Smoking status: unknown. ROS: 09:06 Constitutional: Negative for fever, chills, and weight loss, Cardiovascular: Negative pm1 for chest pain, palpitations, and edema, Respiratory: Negative for shortness of breath, cough, wheezing, and pleuritic chest pain. 09:06 Back: Negative for injury and pain, MS/Extremity: Negative for injury and deformity, Skin: Negative for injury, rash, and discoloration, Neuro: Negative for headache, weakness, numbness, tingling, and seizure. 09:06 Abdomen/GI: Positive for abdominal pain, of the right upper quadrant, Negative for nausea, vomiting, and diarrhea. 09:06 All other systems are negative. Exam: 09:06 Constitutional: This is a well developed, well nourished patient who is awake, alert, pm1 and in no acute distress. Head/Face: Normocephalic, atraumatic. 09:06 Back: No spinal tenderness. No costovertebral tenderness. Full range of motion. Skin: Warm, dry with normal turgor. Normal color with no rashes, no lesions, and no evidence of cellulitis. MS/ Extremity: Pulses equal, no cyanosis. Neurovascular intact. Full, normal range of motion. 09:06 Cardiovascular: Exam negative for acute changes, Rate: normal, Rhythm: regular, Pulses: no pulse deficits are appreciated, Heart sounds: normal, normal S1and S2. 09:06 Respiratory: Exam negative for acute changes, respiratory distress, rhonchi, Breath sounds: are clear throughout. 09:06 Abdomen/GI: Exam negative for acute changes, Inspection: abdomen appears normal, Palpation: abdomen is soft and non-tender, in all quadrants. 09:06 Neuro: Exam negative for acute changes, Orientation: is normal, Mentation: is normal, Motor: is normal, moves all fours. Vital Signs: 08:38 BP 170 / 89; Pulse 90; Resp 16; Pulse Ox 95% on R/A; iw 10:07 BP 176 / 86; Pulse 77; Resp 16; Pulse Ox 96% on R/A; Pain 9/10; ab2 11:29 BP 161 / 87; Pulse 80; Resp 16; Pulse Ox 99% on R/A; ab2 MDM: 08:44 Patient medically screened. pm1 10:54 Data reviewed: vital signs. Data interpreted: Pulse oximetry: on room air is 96 %. pm1 Interpretation: normal. Counseling: I had a detailed discussion with the patient and/or guardian regarding: the historical points, exam findings, and any diagnostic results supporting the discharge/admit diagnosis, lab results, radiology results, the need for outpatient follow up, a security compliance specialist, to return to the emergency department if symptoms worsen or persist or if there are any questions or concerns that arise at home. 03/24 08:41 Order name: Basic Metabolic Panel; Complete Time: 10:45 pm1 03/24 08:41 Order name: CBC with Diff; Complete Time: 10:45 pm1 03/24 08:41 Order name: Hepatic Function; Complete Time: 10:45 pm1 03/24 08:41 Order name: Lipase; Complete Time: 10:45 pm1 03/24 08:44 Order name: ETOH Level; Complete Time: 10:45 pm1 03/24 10:27 Order name: Urine Dipstick-Ancillary; Complete Time: 10:45 EDMS 03/24 08:44 Order name: CT Abd/Pelvis - IV Contrast Only; Complete Time: 10:45 pm1 03/24 08:41 Order name: IV Saline Lock; Complete Time: 09:39 pm1 03/24 08:41 Order name: Labs collected and sent; Complete Time: 09:39 pm1 03/24 08:44 Order name: Urine Dipstick-Ancillary (obtain specimen); Complete Time: 10:26 pm1 Administered Medications: 09:53 Drug: NS 0.9% 500 ml Route: IV; Rate: bolus; Site: right antecubital; iw 10:20 Follow up: IV Status: Completed infusion iw 09:54 Drug: Pepcid (famotidine) 20 mg Route: IVP; Site: right antecubital; iw 10:20 Follow up: Response: No adverse reaction iw 10:05 Drug: morphine 4 mg Route: IVP; Site: right antecubital; ab2 10:15 Follow up: Response: No adverse reaction iw 10:05 Drug: Zofran (Ondansetron) 4 mg Route: IVP; Site: right antecubital; ab2 11:42 Follow up: Response: No adverse reaction ab2 11:08 CANCELLED (Physician Discretion): morphine 4 mg IVP once; RASS on ADMIN: Combtv4, Very pm1 Agttd3, Agttd2, Rstlss1, AlertClm0, Drwsy-1, Lt Sdtn-2, Mod Sdtn-3, Dp Sdtn-4, UnArsble-5 11:28 Drug: Phenergan (promethazine) 12.5 mg Route: IVP; Site: right antecubital; ab2 11:42 Follow up: Response: No adverse reaction ab2 11:28 Drug: Ketorolac 30 mg Route: IVP; Site: right antecubital; ab2 11:42 Follow up: Response: No adverse reaction ab2 Disposition: 13:20 Co-signature as Attending Physician, Tera Raymond MD I agree with the assessment and kdr plan of care. Disposition Summary: 03/24/21 11:02 Discharge Ordered Location: Home pm1 Problem: new pm1 Symptoms: have improved pm1 Condition: Stable pm1 Diagnosis - Abdominal pain, unspecified pm1 Followup: pm1 - With: Emergency Department - When: As needed - Reason: Worsening of condition Followup: pm1 - With: Private Physician - When: 2 - 3 days - Reason: Recheck today's complaints, Continuance of care, Re-evaluation by your physician Discharge Instructions: - Discharge Summary Sheet pm1 - Abdominal Pain, Adult pm1 Forms: - Medication Reconciliation Form pm1 - Thank You Letter pm1 - Antibiotic Education pm1 - Prescription Opioid Use pm1 Prescriptions: - Pepcid 20 mg Oral Tablet - take 1 tablet by ORAL route every 12 hours for 10 days; 20 tablet; Refills: 0, pm1 Product Selection Permitted - dicyclomine 20 mg Oral Tablet - take 1 tablet by ORAL route every 6 hours As needed; 20 tablet; Refills: 0, pm1 Product Selection Permitted - promethazine 25 mg Oral Tablet - take 1 tablet by ORAL route every 6 hours As needed; 20 tablet; Refills: 0, pm1 Product Selection Permitted Signatures: Dispatcher [employer] EDTera Law MD MD kdr Therese Logan RN RN iw Blas Garay, [employer] CASTINGS DRAFTER pm1 Ike Mauricio2 Corrections: (The following items were deleted from the chart) 11:08 10:48 morphine 4 mg IVP once; RASS on ADMIN: Combtv4, Very Agttd3, Agttd2, Rstlss1, pm1 AlertClm0, Drwsy-1, Lt Sdtn-2, Mod Sdtn-3, Dp Sdtn-4, UnArsble-5 ordered. pm1 16:14 09:06 The patient presents with abdominal pain that is diffuse, pm1 pm1
[2021-03-24] MEDS ORDERED: KETOROLAC 30 MG/ML INJ ONE (11:25)
[2021-03-24] MEDS ORDERED: PROMETHAZINE INJ 25 MG/ML AMP ONE (11:25)
[2021-03-24 12:08] VITALS: BP 161/87; O2SAT 99
== END 2021-03-24 11:59 | disposition home or self-care (01) ==
LOC: ER 08:07
DX: R10.9 Unspecified abdominal pain (principal); E03.9 Hypothyroidism, unspecified
CPT/HCPCS: 85025; 80048; 36415; 80320; 82565; 80076; 81003; 83690; 74177; 96375; 96374; 99283; Q9967; J2550; J7040; J2405 ×2

== ENCOUNTER 2021-04-03 14:21 | Emergency (ER) | payer OTHER ==
--- OUTSIDE RECORDS SUMMARY | 2021-04-03 14:24 | XMS REPORT | Continuity of Care Document ---
:1960 Author Organization [facility] t Address [address] [place] [address] Care Team Providers Name Role Phone Sharpless Primary Care Physician RADHA SIMPSON Attending Clinician Unavailable RADHA SIMPSON Attending Clinician Unavailable Doctor Unassigned, Name Attending Clinician Unavailable RAGHU Attending Clinician Unavailable Nazanin CLARK A Attending Clinician Payers Payer Name Policy Type Policy Number Effective Date Expiration Date S [facility] STAR [id number] 2017 00:00:00 PLUS Problems This patient has no known problems. Allergies, Adverse Reactions, Alerts Allergy Allergy Status Severity Reaction(s) Onset Inactive Treating Comm ents Source Name Type Date Date Clinician NITRO DRUG Active Other-Cmnt 2019-0 Univer s TRANSDER 07-27 ity of MAL 00:00: [address] [place] ACETAMIN DRUG Active Other-Cmnt 2019-0 Univ ers OPHEN INGREDI 07-27 ity of 00:00: [address] Social History Social Habit Start Date Stop Date Quantity Comments Source Sex Assigned At [facility] Alcohol intake 2016-05-01 2016-05-01 Current [facility] 00:00:00 00:00:00 non-drinker of Medical nter alcohol (finding) Smoking Status Start Date Stop Date Source Current every day smoker 2016-05-01 00:00:00 [facility] Medications Ordered Filled Start Stop Current Ordering Indication Dosage Frequency Signature Comments Components Source Medication Medication Date Date Medication? Clinician (SIG) Name Name OXcarbazepi Yes 600mg [id number] Take [address] ne 2-23 [id number] mg by [facility] - (TRILEPTAL) 10:23: 3D [...] Department ID 2020-08-03 2020-08-03 Outpatient MATT VÁSQUEZ [facility] [id number] Univers 10:00:00 10:00:00 MATT SIMPSON [id number] [facility] 2020-08-03 2020-08-03 Outpatient MATT VÁSQUEZ [facility] [id number] Univers 10:00:00 10:00:00 MATT SIMPSON [facility] 2020-07-25 2020-07-25 Orders Doctor ABE [id number] 00:00:00 00:00:00 Only Unassigned, BK [id number] [place] [facility] [id number] 2019-09-26 2019-09-26 Outpatient Bertin KRISHNAMURTHY [facility] [id number] Univers 16:00:00 16:00:00 WALLY [facility] 2019-09-26 2019-09-26 [facility] [id number] Univers 16:00:00 16:00:00 WALLY yeager [facility] 2018-10-21 2018-10-21 Telephone [facility], [facility] [id number] 00:00:00 00:00:00 Natacha Nguyen [id number] [facility] [id number] [id number] [facility], [facility] [address] [facility] Results This patient has no known results.
[2021-04-03] MEDS ORDERED: LORazepam 2 MG/ML VIAL ONE ×2 (14:57→17:14)
[2021-04-03] MEDS ORDERED: ONDANSETRON 4 MG/2 ML VIAL ONE (14:58)
[2021-04-03 15:15] LABS: Absolute Lymphocytes (CBC) 1.1 K/uL (0.7-4.9); Hematocrit 37.5 % (36.0-45.0); Lymphocytes % 14.7 % (15.3-44.8); MPV 6.5 fL (7.6-11.3); RBC Red Blood Cell Count 4.08 M/uL (3.86-4.86)
--- NOTE | 2021-04-03 15:40 | RAD REPORT ---
EXAM DESCRIPTION: RAD - Chest Single View - 04/03/2021 3:32 pm CLINICAL HISTORY: CHEST PAIN Chest pain. COMPARISON: Chest Single View dated 03/09/2021; Chest Single View dated 10/09/2020; Abdomen Acute Series dated 05/17/2020; Chest Single View dated 02/22/2020 FINDINGS: Portable technique limits examination quality. Mild interstitial prominence is seen which may represent interstitial pulmonary edema. The heart is m ildly enlarged in size. No displaced fractures. IMPRESSION: Mild CHF.
[2021-04-03 15:58] LABS: ALT/SGPT 35 U/L (12-78); AST/SGOT 13 U/L (15-37); Albumin 4.1 g/dL (3.4-5.0); Alkaline Phosphatase 112 U/L (45-117); BUN Blood Urea Nitrogen 10 mg/dL (7-18); Bicarbonate 28 mmol/L (21-32); Bilirubin Direct < 0.1 mg/dL (0-0.2); Bilirubin Total 0.2 mg/dL (0.2-1.0); Glucose Level 166 mg/dL (74-106); Magnesium 1.7 mg/dL (1.8-2.4); NT PRO-BNP 96 pg/mL (<125); Potassium 4.4 mmol/L (3.5-5.1); Protein, Total 8.1 g/dL (6.4-8.2); Sodium Level 122 mmol/L (136-145)
--- NOTE | 2021-04-03 17:21 | EDPHYS ---
Physician Documentation [facility] Name: Jaimie Amanda Age: 60 yrs Sex: Female : 1960 Arrival Date: 04/03/2021 Time: 14:22 Bed 13 Private MD: ED Physician Joseph Thompson HPI: 04/03 15:18 This 60 yrs old Female presents to ER via Wheelchair with complaints of Epigastric pain.ma2 15:18 Patient has chronic epigastric pain, was advised that this is a false anxiety and had ma2 epigastric pain although noted in triage that she had chest pain patient pointed out to her epigastric area, denies chest pain.. Historical: - Allergies: 14:47 Motrin; jd3 - Home Meds: 14:47 Synthroid Oral [Active]; jd3 - PMHx: 14:47 Hypertensive disorder; Hypothyroidism; jd3 - Immunization history:: Adult Immunizations up to date, Client reports receiving the 2nd dose of the Covid vaccine, Flu vaccine is up to date. - Social history:: Smoking status: Patient reports the use of cigarette tobacco products, smokes one-half pack cigarettes per day. - Family history:: not pertinent. ROS: 15:18 Constitutional: Negative for fever, chills, and weight loss. ma2 15:18 All other systems are negative. Exam: 15:18 Constitutional: This is a well developed, well nourished patient who is awake, alert, ma2 and in no acute distress. Head/Face: Normocephalic, atraumatic. Eyes: Pupils equal round and reactive to light, extra-ocular motions intact. Lids and lashes normal. Conjunctiva and sclera are non-icteric and not injected. Cornea within normal limits. Periorbital areas with no swelling, redness, or edema. ENT: Nares patent. No nasal discharge, no septal abnormalities noted. Tympanic membranes are normal and external auditory canals are clear. Oropharynx with no redness, swelling, or masses, exudates, or evidence of obstruction, uvula midline. Mucous membranes moist. Neck: Trachea midline, no thyromegaly or masses palpated, and no cervical lymphadenopathy. Supple, full range of motion without nuchal rigidity, or vertebral point tenderness. No Meningismus. Chest/axilla: Normal chest wall appearance and motion. Nontender with no deformity. No lesions are appreciated. Cardiovascular: Regular rate and rhythm with a normal S1 and S2. No gallops, murmurs, or rubs. Normal PMI, no JVD. No pulse deficits. Respiratory: Lungs have equal breath sounds bilaterally, clear to auscultation and percussion. No rales, rhonchi or wheezes noted. No increased work of breathing, no retractions or nasal flaring. Abdomen/GI: Soft, non-tender, with normal bowel sounds. No distension or tympany. No guarding or rebound. No evidence of tenderness throughout. Skin: Warm, dry with normal turgor. Normal color with no rashes, no lesions, and no evidence of cellulitis. MS/ Extremity: Pulses equal, no cyanosis. Neurovascular intact. Full, normal range of motion. Neuro: Awake and alert, GCS 15, oriented to person, place, time, and situation. Cranial nerves II-XII grossly intact. Motor strength 5/5 in all extremities. Sensory grossly intact. Cerebellar exam normal. Normal gait. Vital Signs: 14:47 BP 192 / 97; Pulse 99; Resp 18 S; Temp 98.2(TE); Pulse Ox 98% on R/A; Weight 81.65 kg jd3 (R); Height 5 ft. 7 in. (170.18 cm) (R); Pain 9/10; 14:47 Body Mass Index 28.19 (81.65 kg, 170.18 cm) jd3 MDM: 15:18 Differential diagnosis: Gastritis, anxiety, versus muscle sprain. Data reviewed: [facility] system signs, nurses notes, EMS record. Data reviewed: long-term records, diagnostic data from outside facility, old medical records. ED course: Heart score and RENATA score not applicable.. 17:21 Patient medically screened. 04/03 14:48 Order name: Basic Metabolic Panel; Complete Time: 16:55 04/03 14:48 Order name: CBC with Diff; Complete Time: 16:55 04/03 14:48 Order name: LFT's; Complete Time: 16:55 04/03 14:48 Order name: Magnesium; Complete Time: 16:55 ne04/03 14:48 Order name: NT PRO-BNP; Complete Time: 16:55 ne04/03 14:48 Order name: PT-INR; Complete Time: 16:55 04/03 14:48 Order name: Troponin HS; Complete Time: 16:55 04/03 14:48 Order name: XRAY Chest (1 view); Complete Time: 16:55 04/03 14:48 Order name: EKG; Complete Time: 14:49 04/03 14:48 Order name: Cardiac monitoring; Complete Time: 14:49 04/03 14:48 Order name: EKG - Nurse/Tech; Complete Time: 14:49 04/03 14:48 Order name: IV Saline Lock; Complete Time: 15:21 04/03 14:48 Order name: Labs collected and sent; Complete Time: 15:21 04/03 14:48 Order name: O2 Per Protocol; Complete Time: 14:49 04/03 14:48 Order name: O2 Sat Monitoring; Complete Time: 14:49 ma Administered Medications: 15:00 Drug: Ativan (LORazepam) 1 mg Route: IVP; Site: right antecubital; cb5 15:00 Drug: Zofran (Ondansetron) 4 mg Route: IVP; Site: right antecubital; cb5 17:16 Drug: Ativan (LORazepam) 1 mg Route: IVP; Site: right antecubital; cb5 Disposition Summary: 04/03/21 17:21 Discharge Ordered Location: Home ma2 Condition: Stable ma2 Diagnosis - Other specified anxiety disorders ma2 Followup: ma2 - With: Private Physician - When: Tomorrow - Reason: If symptoms return Discharge Instructions: - Discharge Summary Sheet ma2 - Managing Anxiety, Adult ma2 Forms: - Medication Reconciliation Form ma2 - Thank You Letter ma2 - Antibiotic Education ma2 - Prescription Opioid Use ma2 Signatures: Dispatcher [employer] Bel Valadez RN RN ss Davies, Jonathon, RN RN Joseph Ravi MD MD ma2 Lisa Miller RN RN cb5
--- NOTE | 2021-04-03 17:21 | ER ---
Nurse's Notes [facility] Name: Jaimie Amanda Age: 60 yrs Sex: Female : 1960 Arrival Date: 04/03/2021 Time: 14:22 Bed 13 Private MD: Diagnosis: Other specified anxiety disorders Presentation: 04/03 14:46 Chief complaint: Patient states: "I was at the dentist and I was given and antibiotic jd3 and now my chest is hurting. I don't now if I am having a major panic attack or a heart attack or what.". Coronavirus screen: At this time, the client does not indicate any symptoms associated with coronavirus-19. Ebola Screen: No symptoms or risks identified at this time. Initial Sepsis Screen: Does the patient meet any 2 criteria? No. Patient's initial sepsis screen is negative. Does the patient have a suspected source of infection? No. Patient's initial sepsis screen is negative. Risk Assessment: Do you want to hurt yourself or someone else? Patient reports no desire to harm self or others. Onset of symptoms was April 03, 2021. 14:46 Method Of Arrival: Wheelchair jd3 14:46 Acuity: ZHEN 3 jd3 Historical: - Allergies: 14:47 Motrin; jd3 - Home Meds: 14:47 Synthroid Oral [Active]; jd3 - PMHx: 14:47 Hypertensive disorder; Hypothyroidism; jd3 - Immunization history:: Adult Immunizations up to date, Client reports receiving the 2nd dose of the Covid vaccine, Flu vaccine is up to date. - Social history:: Smoking status: Patient reports the use of cigarette tobacco products, smokes one-half pack cigarettes per day. - Family history:: not pertinent. Assessment: 14:55 General: Appears in no apparent distress. comfortable, well developed, Behavior is cb5 calm, cooperative, appropriate for age. Pain: Complains of pain in abdomen Pain currently is 4 out of 10 on a pain scale. Neuro: No deficits noted. Cardiovascular: No deficits noted. Respiratory: No deficits noted. GI: No deficits noted. : Denies. EENT: Denies. Derm: No deficits noted. Musculoskeletal: No deficits noted. 16:00 Reassessment: Patient states feeling better. Patient states symptoms have improved. cb5 Vital Signs: 14:47 BP 192 / 97; Pulse 99; Resp 18 S; Temp 98.2(TE); Pulse Ox 98% on R/A; Weight 81.65 kg jd3 (R); Height 5 ft. 7 in. (170.18 cm) (R); Pain 9/10; 14:47 Body Mass Index 28.19 (81.65 kg, 170.18 cm) jd3 ED Course: 14:22 Patient arrived in ED. as 14:47 Joseph Thompson MD is Attending Physician. ma2 14:47 Triage completed. jd3 14:48 Arm band placed on. EKG completed in triage. Results shown to MD. jd3 14:50 Lisa Miller, RN is Primary Nurse. cb5 15:21 Basic Metabolic Panel Sent. cb5 15:21 LFT's Sent. cb5 15:21 Magnesium Sent. cb5 15:21 NT PRO-BNP Sent. cb5 15:21 Troponin HS Sent. cb5 15:32 XRAY Chest (1 view) In Process Unspecified. EDMS 17:56 IV discontinued, intact, bleeding controlled, No redness/swelling at site. ld1 Administered Medications: 15:00 Drug: Ativan (LORazepam) 1 mg Route: IVP; Site: right antecubital; cb5 15:00 Drug: Zofran (Ondansetron) 4 mg Route: IVP; Site: right antecubital; cb5 17:16 Drug: Ativan (LORazepam) 1 mg Route: IVP; Site: right antecubital; cb5 Outcome: 17:21 Discharge ordered by . ma2 17:55 Discharged to home ambulatory. ld1 17:55 Condition: stable 17:55 Discharge instructions given to patient, Instructed on discharge instructions, follow up and referral plans. Demonstrated understanding of instructions, follow-up care. 17:56 Patient left the ED. ld1 Signatures: Dispatcher [employer] EDAda Combs Jonathon, CATY RN Joseph Ravi MD MD ma2 Dibbern, Lauren, RN RN ld1 Lisa Miller, RN RN cb5
[2021-04-03 18:01] VITALS: BP 192/97; TEMP 98.2; O2SAT 98
== END 2021-04-03 17:56 | disposition home or self-care (01) ==
LOC: ER 14:21
DX: F41.8 Other specified anxiety disorders (principal); I10 Essential (primary) hypertension; E03.9 Hypothyroidism, unspecified; F17.210 Nicotine dependence, cigarettes, uncomplicated
CPT/HCPCS: 85025; 80048; 36415; 83735; 85610; 80076; 84484; 83880; 71045; J2405; 93005; 96374; 96375; 99283

== ENCOUNTER 2021-04-06 16:30 | Inpatient (IN) | payer OTHER ==
--- OUTSIDE RECORDS SUMMARY | 2021-04-06 16:34 | XMS REPORT | Continuity of Care Document ---
:1960 Author Organization [facility] t Address [address] [place] [address] Care Team Providers Name Role Phone Sharpless Primary Care Physician RADHA SIMPSON Attending Clinician Unavailable RADHA SIMPSON Attending Clinician Unavailable Doctor Unassigned, Name Attending Clinician Unavailable RAGHU Attending Clinician Unavailable Nazanin CLARK A Attending Clinician Payers Payer Name Policy Type Policy Number Effective Date Expiration Date S [facility] STAR [id number] 2017 00:00:00 PLUS Problems This patient has no known problems. Allergies, Adverse Reactions, Alerts Allergy Allergy Status Severity Reaction(s) Onset Inactive Treating Comm ents Source Name Type Date Date Clinician NITRO DRUG Active Other-Cmnt 2019-0 Univer s TRANSDER 07-27 ity of MAL 00:00: [address] [place] ACETAMIN DRUG Active Other-Cmnt 2019-0 Univ ers OPHEN INGREDI 07-27 ity of 00:00: [address] Social History Social Habit Start Date Stop Date Quantity Comments Source Sex Assigned At [facility] Alcohol intake 2016-05-01 2016-05-[address] [facility] 00:00:00 00:00:00 non-drinker of Medical nter alcohol (finding) Smoking Status Start Date Stop Date Source Current every day smoker 2016-05-01 00:00:00 [facility] Medications Ordered Filled Start Stop Current Ordering Indication Dosage Frequency Signature Comments Components Source Medication Medication Date Date Medication? Clinician (SIG) Name Name OXcarbazepi Yes 600mg [id number] Take [address] ne 2-23 [id number] [facility] (TRILEPTAL) 10:23: 3D [...] Department ID 2020-08-03 2020-08-03 Outpatient MATT VÁSQUEZ [facility] [id number] Univers 10:00:00 10:00:00 MATT SIMPSON [id number] [facility] 2020-08-03 2020-08-03 Outpatient MATT VÁSQEUZ [facility] [id number] Univers 10:00:00 10:00:00 MATT SIMPSON [facility] 2020-07-25 2020-07-25 Orders Doctor ABE [id number] 00:00:00 00:00:00 Only Unassigned, BK [id number] [facility] [id number] 2019-09-26 2019-09-26 Outpatient Bertin KRISHNAMURTHY [facility] [id number] Univers 16:00:00 16:00:00 WALLY [facility] 2019-09-26 2019-09-26 [facility] [id number] Univers 16:00:00 16:00:00 WALLY [facility] 2018-10-21 2018-10-21 Telephone [facility], [facility] [id number] 00:00:00 00:00:00 Natacha Nguyen [id number] Ade [id number] [facility] 204 [facility] Results This patient has no known results.
[2021-04-06] MEDS ORDERED: DIPHENHYDRAMINE 50 MG/ML VIAL ONE (17:12)
[2021-04-06] MEDS ORDERED: METOCLOPRAMIDE 10 MG/2mL INJ ONE ×3 (17:12→19:46)
[2021-04-06] MEDS ORDERED: NA CHLORIDE 0.9% 50 ML ONE ×2 (17:12→19:58)
[2021-04-06] MEDS ORDERED: NA CHLORIDE 0.9% 1,000 ML ONE (17:12)
[2021-04-06 17:23] LABS: Absolute Lymphocytes (CBC) 2.8 K/uL (0.7-4.9); Hematocrit 39.8 % (36.0-45.0); Lymphocytes % 21.5 % (15.3-44.8); MPV 6.5 fL (7.6-11.3); RBC Red Blood Cell Count 4.39 M/uL (3.86-4.86)
[2021-04-06] MEDS ORDERED: LORazepam 2 MG/ML VIAL ONE ×2 (17:24→23:11)
[2021-04-06 17:54] LABS: Albumin 4.3 g/dL (3.4-5.0); Bilirubin Direct 0.1 mg/dL (0-0.2); Bilirubin Total 0.3 mg/dL (0.2-1.0); Potassium 3.5 mmol/L (3.5-5.1); Protein, Total 8.4 g/dL (6.4-8.2)
[2021-04-06] MEDS ORDERED: FUROSEMIDE 40 MG/4 ML VIAL ONE (18:12)
--- NOTE | 2021-04-06 18:50 | EDPHYS ---
Physician Documentation [facility] Name: Jaimie Amanda Age: 60 yrs Sex: Female : 1960 Arrival Date: 04/06/2021 Time: 16:32 Bed 19 Private MD: COSTA Physician Diego Ramirez HPI: 04/06 16:49 This 60 yrs old Female presents to ER via EMS with complaints of Nausea. jmm 16:49 The patient presents to the emergency department with nausea, vomiting, abdominal pain. jmm Onset: The symptoms/episode began/occurred gradually. Possible causes: flare up of bowel problem. The symptoms are aggravated by nothing. The symptoms are alleviated by nothing. Associated signs and symptoms: Pertinent positives: abdominal pain, Pertinent negatives: fever. The patient has experienced similar episodes in the past, several times. Historical: - Allergies: 16:44 Motrin; vg1 - Home Meds: 16:44 Synthroid Oral [Active]; vg1 - PMHx: 16:44 Hypertensive disorder; Hypothyroidism; vg1 - Immunization history:: Client reports receiving the 2nd dose of the Covid vaccine. - Social history:: Smoking status: Patient reports the use of cigarette tobacco products, denies chronic smoking, but will smoke occasionally, smokes one pack cigarettes per day. Patient/guardian denies using alcohol. ROS: 16:49 Constitutional: Negative for fever, chills, and weight loss, Cardiovascular: Negative jmm for chest pain, palpitations, and edema, Respiratory: Negative for shortness of breath, cough, wheezing, and pleuritic chest pain. 16:49 Abdomen/GI: Positive for abdominal pain, nausea and vomiting. 16:49 All other systems are negative. Exam: 16:49 Constitutional: This is a well developed, well nourished patient who is awake, alert, jmm and in no acute distress. Head/Face: atraumatic. Eyes: EOMI, no conjunctival erythema appreciated ENT: Moist Mucus Membranes Neck: Trachea midline, Supple Chest/axilla: Normal chest wall appearance and motion. Cardiovascular: Regular rate and rhythm. No edema appreciated Respiratory: Normal respirations, no respiratory distress appreciated Abdomen/GI: Non distended, soft Back: Normal ROM Skin: General appearance color normal MS/ Extremity: Moves all extremities, no obvious deformities appreciated, no edema noted to the lower extremities Neuro: Awake and alert Psych: Behavior is normal, Mood is normal, Patient is cooperative and pleasant Vital Signs: 16:43 BP 175 / 98; Pulse 79; Resp 18; Temp 97.3; Pulse Ox 96% ; Weight 77.11 kg; Height 5 ft. vg1 7 in. (170.18 cm); Pain 10/10; 17:15 BP 212 / 107; Pulse 79; Resp 15; Pulse Ox 95% ; jl7 18:25 BP 216 / 106; Pulse 75; Resp 15; Pulse Ox 95% ; jl7 20:00 BP 181 / 68; Pulse 96; Resp 20; Pulse Ox 96% on R/A; ph 16:43 Body Mass Index 26.63 (77.11 kg, 170.18 cm) vg1 MDM: 16:49 Patient medically screened. hannah 18:47 Data reviewed: vital signs, nurses notes. Counseling: I had a detailed discussion with hilton the patient and/or guardian regarding: the historical points, exam findings, and any diagnostic results supporting the discharge/admit diagnosis, lab results, radiology results, the need for further work-up and treatment in the hospital. ED course: I discussed the patient with Uziel Virk whom accepted the patient for admission. . 04/06 16:51 Order name: Basic Metabolic Panel; Complete Time: 18:01 [facility] 04/06 16:51 Order name: CBC with Diff; Complete Time: 17:25 [facility] 04/06 16:51 Order name: Hepatic Function; Complete Time: 18:01 [facility] 04/06 16:51 Order name: Lipase; Complete Time: 18:01 [facility] 04/06 18:16 Order name: SARS-COV-2 RT PCR (Document "Date of Onset" if Symptomatic); Complete Time: [facility] 04/06 19:09 Order name: Troponin High Sensitivity; Complete Time: 20:45 [facility] 04/06 19:13 Order name: ETOH Level; Complete Time: 20:10 [facility] 04/07 01:25 Order name: Basic Metabolic Panel; Complete Time: 01:35 [facility] 04/07 01:25 Order name: Amylase; Complete Time: 01:35 [facility] 04/07 01:33 Order name: Ammonia; Complete Time: 01:35 [facility] 04/07 03:29 Order name: CBC with Automated Diff [facility] 04/07 04:05 Order name: Basic Metabolic Panel [facility] 04/07 04:05 Order name: Phosphorus [facility] 04/07 04:05 Order name: Lipid Profile [facility] 04/06 16:51 Order name: IV Saline Lock; Complete Time: 17:17 [facility] 04/06 16:53 Order name: CT Abd/Pelvis - IV Contrast Only; Complete Time: 19:23 [facility] 04/06 21:20 Order name: CONS Physician Consult [facility] 04/07 04:05 Order name: T4 Free [facility] 04/07 04:05 Order name: Magnesium [facility] 04/07 04:05 Order name: Thyroid Stimulating Hormone [facility] 04/07 08:24 Order name: Glucose, Ancillary Testing [facility] 04/07 11:48 Order name: Glucose, Ancillary Testing [facility] 04/06 16:51 Order name: Labs collected and sent; Complete Time: 17:17 [facility] 04/06 19:09 Order name: EKG - Nurse/Tech; Complete Time: 19:53 [facility] 04/06 21:45 Order name: [address] ph Administered Medications: 17:17 Drug: NS 0.9% 1000 ml Route: IV; Rate: 1 bolus; Site: left wrist; jl7 20:38 Follow up: Response: No adverse reaction; IV Status: Completed infusion; IV Intake: ph 1000ml 17:17 Drug: diphenhydrAMINE 12.5 mg Route: IVP; Site: left wrist; jl7 18:24 Follow up: Response: No adverse reaction jl7 17:17 Drug: Reglan (metoCLOPramide) 10 mg Route: IVP; Site: left wrist; jl7 18:24 Follow up: Response: No adverse reaction jl7 17:24 Drug: Ativan (LORazepam) 1 mg Route: IVP; Site: left wrist; jl7 18:24 Follow up: Response: No adverse reaction jl7 18:24 Drug: Reglan (metoCLOPramide) 10 mg Route: IVP; Site: right wrist; jl7 20:38 Follow up: Response: No adverse reaction ph 19:17 Drug: hydrALAZINE 10 mg Route: IVP; Site: left wrist; jl7 20:38 Follow up: Response: No adverse reaction ph 20:00 Drug: Reglan (metoCLOPramide) 10 mg Route: IVP; Site: right wrist; ph 20:38 Follow up: Response: No adverse reaction ph 22:09 Drug: Promethazine 12.5 mg Route: IVP; Site: right hand; as6 Disposition: 04/07 13:26 Co-signature as Attending Physician, Diego Ramirez MD I agree with the assessment and hannah plan of care. Disposition Summary: 04/06/21 21:14 Hospitalization Ordered Hospitalization Status: Observation(04/06/21 21:14) [facility] Provider: Olegario Bettencourt(04/06/21 21:14) jm Condition: Stable(04/06/21 21:14) jm Problem: new(04/06/21 21:14) jm Symptoms: are unchanged(04/06/21 21:14) jm Bed/Room Type: Standard(04/06/21 21:14) [facility] Location: Telemetry/MedSurg (observation)(04/07/21 11:48) eb Room Assignment: 219(04/07/21 11:48) eb Diagnosis - Hypo-osmolality and hyponatremia(04/06/21 21:14) jmm - Vomiting(04/06/21 21:14) [facility] Forms: - Medication Reconciliation Form jmm - SBAR form [facility] Signatures: Dispatcher [employer] EDMS Rosemarie Donaldson, RN RN Diego Garcia MD MD cha Mickail, Joel, PA PA jmm Hall, Patricia, RN RN Arianna Smart RN RN jl7 Nikkie Merrill Victoria, RN RN vg1 Antony Mccallum RN RN as6 Corrections: (The following items were deleted from the chart) 04/06 19:03 18:49 Observation [facility] 19:03 18:49 Uziel Virk [facility] 19:03 18:49 Telemetry/MedSurg (observation) [facility] 19:03 18:49 Stable [facility] 19:03 18:49 new [facility] 19:03 18:49 are unchanged [facility] 19:03 18:49 Standard [facility] 19:03 18:49 [facility] 19:03 18:49 Vomiting [facility] 19:03 18:49 Hypo-osmolality and hyponatremia [facility] 22:13 21:14 Telemetry/MedSurg (observation) [facility] :13 21:14 [facility] mw 04/07 11:48 04/06 22:13 [facility] 04/07 11:48 04/06 22:13 [facility]
--- NOTE | 2021-04-06 18:50 | ER ---
Nurse's Notes [facility] Name: Jaimie Amanda Age: 60 yrs Sex: Female : 1960 Arrival Date: 04/06/2021 Time: 16:32 Bed 19 Private MD: Diagnosis: Hypo-osmolality and hyponatremia;Vomiting Presentation: 04/06 16:36 Chief complaint: Patient states: RLQ pain EMS states: ABD pain, N/V, dizziness that vg1 started about 3-4 hours ago; Pt was given 4 mg Zofran IM x1. Onset of symptoms was April 06, 2021. 16:36 Method Of Arrival: EMS: [facility] vg1 16:43 Coronavirus screen: Vaccine status: Patient reports receiving the 2nd dose of the covid vg1 vaccine. Client denies travel out of the [place] in the last 14 days. Ebola Screen: Patient negative for fever greater than or equal to 101.5 degrees Fahrenheit, and additional compatible Ebola Virus Disease symptoms. Initial Sepsis Screen: Does the patient meet any 2 criteria? No. Patient's initial sepsis screen is negative. Does the patient have a suspected source of infection? No. Patient's initial sepsis screen is negative. Risk Assessment: Do you want to hurt yourself or someone else? Patient reports no desire to harm self or others. 16:43 Acuity: ZHEN 3 vg1 Triage Assessment: 16:44 General: Appears uncomfortable, Behavior is cooperative. Pain: Complains of pain in vg1 right lower quadrant Pain currently is 10 out of 10 on a pain scale. GI: Abdomen is round non-distended, Reports nausea, vomiting. Historical: - Allergies: 16:44 Motrin; vg1 - Home Meds: 16:44 Synthroid Oral [Active]; vg1 - PMHx: 16:44 Hypertensive disorder; Hypothyroidism; vg1 - Immunization history:: Client reports receiving the 2nd dose of the Covid vaccine. - Social history:: Smoking status: Patient reports the use of cigarette tobacco products, denies chronic smoking, but will smoke occasionally, smokes one pack cigarettes per day. Patient/guardian denies using alcohol. Screenin:17 Abuse screen: Denies threats or abuse. Denies injuries from another. Nutritional jl7 screening: No deficits noted. Tuberculosis screening: No symptoms or risk factors identified. Fall Risk IV access (20 points). Total Rubio Fall Scale indicates No Risk (0-24 pts). Assessment: 17:17 General: Appears in no apparent distress. uncomfortable, Behavior is cooperative, jl7 anxious, restless. Pain: Complains of pain in abdomen Pain currently is 10 out of 10 on a pain scale. Neuro: Level of Consciousness is awake, alert, obeys commands. Cardiovascular: Patient's skin is warm and dry. Respiratory: Airway is patent Respiratory effort is even, unlabored, Respiratory pattern is regular, symmetrical. GI: Abdomen is round non-distended, Reports nausea, vomiting. Derm: Skin is pink, warm \T\ dry. 20:00 Reassessment: Patient appears in no apparent distress at this time. Pt c/o nausea, ERP ph notified, Reglan 10 mg administered. General: Appears in no apparent distress. uncomfortable, Behavior is cooperative, anxious. Neuro: Level of Consciousness is awake, alert, obeys commands, Oriented to person, Gait is unsteady, Speech is slurred. GI: Abdomen is round Reports nausea. : Reports urinary frequency. Derm: Skin is pink, warm \T\ dry. Vital Signs: 16:43 BP 175 / 98; Pulse 79; Resp 18; Temp 97.3; Pulse Ox 96% ; Weight 77.11 kg; Height 5 ft. vg1 7 in. (170.18 cm); Pain 10/10; 17:15 BP 212 / 107; Pulse 79; Resp 15; Pulse Ox 95% ; jl7 18:25 BP 216 / 106; Pulse 75; Resp 15; Pulse Ox 95% ; jl7 20:00 BP 181 / 68; Pulse 96; Resp 20; Pulse Ox 96% on R/A; ph 16:43 Body Mass Index 26.63 (77.11 kg, 170.18 cm) vg1 ED Course: 16:32 Patient arrived in ED. ds1 16:44 Triage completed. vg1 16:44 Arm band placed on. vg1 16:46 René Brown PA is PHCP. [facility] 16:46 Diego Ramirez MD is Attending Physician. [facility] 16:53 Arianna Jackson, CATY is Primary Nurse. jl7 17:10 Initial lab(s) drawn, by me, sent to lab. Inserted saline lock: 22 gauge in left wrist, jl7 using aseptic technique. Blood collected. 17:17 Patient has correct armband on for positive identification. Bed in low position. Call jl7 light in reach. Side rails up X2. Pulse ox on. NIBP on. 18:48 Uziel Virk PA is Hospitalizing Provider. [facility] 18:57 CT Abd/Pelvis - IV Contrast Only In Process Unspecified. EDMS 19:46 Primary Nurse role handed off by Arianna Jackson RN cs9 19:52 Antony Mccallum, CATY is Primary Nurse. as6 21:14 Olegario Bettencourt is Hospitalizing Provider. [facility] 04/07 07:09 Primary Nurse role handed off by Antony Mccallum, CATY eb 12:57 No provider procedures requiring assistance completed. Patient admitted, IV remains in ap3 place. Administered Medications: 04/06 17:17 Drug: NS 0.9% 1000 ml Route: IV; Rate: 1 bolus; Site: left wrist; jl7 20:38 Follow up: Response: No adverse reaction; IV Status: Completed infusion; IV Intake: ph 1000ml 17:17 Drug: diphenhydrAMINE 12.5 mg Route: IVP; Site: left wrist; jl7 18:24 Follow up: Response: No adverse reaction jl7 17:17 Drug: Reglan (metoCLOPramide) 10 mg Route: IVP; Site: left wrist; jl7 18:24 Follow up: Response: No adverse reaction jl7 17:24 Drug: Ativan (LORazepam) 1 mg Route: IVP; Site: left wrist; jl7 18:24 Follow up: Response: No adverse reaction jl7 18:24 Drug: Reglan (metoCLOPramide) 10 mg Route: IVP; Site: right wrist; jl7 20:38 Follow up: Response: No adverse reaction ph 19:17 Drug: hydrALAZINE 10 mg Route: IVP; Site: left wrist; jl7 20:38 Follow up: Response: No adverse reaction ph 20:00 Drug: Reglan (metoCLOPramide) 10 mg Route: IVP; Site: right wrist; ph 20:38 Follow up: Response: No adverse reaction ph 22:09 Drug: Promethazine 12.5 mg Route: IVP; Site: right hand; as6 Intake: 20:38 IV: 1000ml; Total: 1000ml. ph Outcome: 18:49 Decision to Hospitalize by Provider. m 21:14 Decision to Hospitalize by Provider. kaley 04/07 12:57 Patient left the ED. ll1 12:57 Admitted to Med/surg accompanied by tech, via stretcher, room 219, with chart. ap3 12:57 Condition: stable 12:57 Discharge instructions given to patient, Instructed on the need for admit, Demonstrated understanding of Signatures: Dispatcher [employer] EDMS René Brown PA PA jmm Sanford, Demi ds1 Shruthi Donohue, RN RN Arianna Jackson, RN RN jl7 Elisa Gutierrez RN RN ap3 Nikkie Merrill Victoria, RN RN vg1 Mikhail Otero RN RN ll1 Zakia Florez cs9 Antony Mccallum RN RN as6 Corrections: (The following items were deleted from the chart) 04/06 16:44 16:36 Chief complaint: EMS states: ABD pain, N/V, dizziness that started about 3-4 vg1 hours ago; Pt was given 4 mg Zofran IM x1 vg1
[2021-04-06] MEDS ORDERED: HYDRALAZINE HCL 20 MG/ML VIAL ONE (19:02)
--- NOTE | 2021-04-06 19:20 | RAD REPORT ---
EXAM DESCRIPTION: CT - Abdomen Pelvis W Contrast - 04/06/2021 6:57 pm CLINICAL HISTORY: Abdominal pain COMPARISON: 03/24/2021 TECHNIQUE: Computed axial tomography of the abdomen pelvis was obtained. 100 cc Isovue-300 was admin istered intravenously. Oral contrast was not requested which limits evaluation of bowel. All CT scans are performed using dose optimization technique as appropriate and may include automated exposure control or mA/KV adjustment according to patient size. FINDINGS: Small hepatic cysts. The Spleen, pancreas, adrenal and kidneys appear unremarkable. There is no evidence of diverticulitis. Normal appendix. No adnexal mass Small hiatal hernia IMPRESSION: No acute abnormality is displayed.
[2021-04-06] MEDS ORDERED: PROMETHAZINE INJ 25 MG/ML AMP ONE (21:44)
--- NOTE | 2021-04-06 22:04 | P.HP ---
Certification for Inpatient Patient admitted to: Inpatient With expected LOS: >2 Midnights Patient will require the following post-hospital care: None Practitioner: I am a practitioner with admitting privileges, knowledge of patient current condition, hospital course, and medical plan of care. Services: Services provided to patient in accordance with Admission requirements found in Title 42 Section 412.3 of the Code of Federal Regulations Patient History Date of Service: 04/06/21 Reason for admission: hyponatremia, AMS History of Present Illness: Ms. Amanda is a 60 yo F with chronic hyponatremia, HTN, hypothyroidism, anxiety, alcohol & tobacco use disorder who presents with 3 days of intractable nausea and vomiting and severe right sided abdominal pain. Denies fever, diarrhea. She is oriented to person and place, but she is overall a poor historian. She says she drank half a beer yesterday to force herself to vomit, but otherwise she reports she does not drink. She has had multiple admissions for hyponatremia and nausea and vomiting in the past, usually resolved with IV NS. She has had alcohol withdrawal related seizures in the past. Initially patient was to be transferred to the [facility] for an ICU bed, but the patient refused transfer. She reports she would like to go home so she can take care of her mother, but I told her her sodium is too low for discharge, and she acknowledged understanding this. Nephrology was contacted and recommended initiating 60cc/hr of NS and monitoring sodium levels. At bedside, she reports urinary urgency, frequency and dysuria. UA pending. WBC 12.9 Na 114 Cl 79 GFR 76 Glu 201 CTAP FINDINGS: Small hepatic cysts. The Spleen, pancreas, adrenal and kidneys appear unremarkable. There is no evidence of diverticulitis. Normal appendix. No adnexal mass Small hiatal hernia IMPRESSION: No acute abnormality is displayed. Allergies nitroglycerin Adverse Reaction (Verified 07/05/18 06:27) severe hypotension Home Medications: Benztropine Mesylate [Cogentin] 0.5 mg PO BEDTIME 03/10/21 Doxepin HCl [Sinequan] 50 mg PO BEDTIME 03/10/21 Levothyroxine Sodium [Synthroid] 137 mcg PO DAILY 03/10/21 Linaclotide [Linzess] 72 mcg PO DAILYPRN PRN 03/10/21 Losartan/Hydrochlorothiazide [Losartan-Hctz 100-25 mg Tab] 1 each PO DAILY 03/10/21 Metformin HCl [Glucophage] 500 mg PO BIDWM 03/10/21 Metoclopramide HCl [Reglan] 10 mg PO QID 03/10/21 OXcarbazepine [Trileptal] 2 tab PO DAILY AFTER SUPPER 03/10/21 OXcarbazepine [Trileptal] 600 mg PO DAILY 03/10/21 Omeprazole [Prilosec] 40 mg PO DAILY 03/10/21 Propranolol [Inderal] 10 mg PO BIDP PRN 03/10/21 Risperidone [Risperdal] 2 mg PO BID 03/10/21 Zolpidem Tartrate [Ambien] 10 mg PO BEDTIME 03/10/21 cloNIDine HCL [Catapres] 0.3 mg PO Q8HP PRN 03/10/21 clonazePAM [Klonopin] 1 mg PO TIDP PRN 03/10/21 ondansetron HCL [Zofran] 4 mg PO Q8HP PRN 03/10/21 - Past Medical/Surgical History Diabetic: No -: Hepatitis -: Anxiety -: HTN -: Hypothyroidism -: Alcoholic induced seizures -: Thyroidectomy -: Plastic surgery breast -: hernia repair - Family History Mother -: Hypertension, Diabetes, Cancer Notes: Thyroid, Knee replacement Father -: Heart disease, Hypertension, Diabetes - Social History Smoking Status: Current every day smoker Alcohol use: Yes CD- Drugs: No Caffeine use: Yes Place of Residence: Home Review of Systems 10-point ROS is otherwise unremarkable General: Unremarkable Eyes: Unremarkable ENT: Unremarkable Respiratory: Unremarkable Gastrointestinal: Nausea, Vomiting, Abdominal Pain Genitourinary: Dysuria, Frequency, Urgency Musculoskeletal: Unremarkable Integumentary: Unremarkable Neurological: Confusion, As per HPI Lymphatics: Unremarkable Physical Examination - Physical Exam General: Alert, In no apparent distress, Oriented x2, Confused HEENT: Atraumatic, PERRLA, Mucous membr. moist/pink, EOMI, Sclerae nonicteric Neck: Supple, 2+ carotid pulse no bruit, No LAD, Without JVD or thyroid abnormality Respiratory: Clear to auscultation bilaterally, Normal air movement Cardiovascular: No edema, Regular rate/rhythm, Normal S1 S2 Gastrointestinal: Normal bowel sounds, No tenderness Musculoskeletal: No tenderness Integumentary: No rashes Neurological: Normal strength at 5/5 x4 extr, Normal tone, Sensation intact, Abnormal speech, Abnormal affect Lymphatics: No axilla or inguinal lymphadenopathy - Studies Laboratory Data (last 24 hrs) 04/06/21 17:06: WBC 12.90 H D, Hgb 13.6, Hct 39.8, Plt Count 392 04/06/21 17:06: Sodium 114 L*, Potassium 3.5, BUN 14, Creatinine 0.77, Glucose 201 H, Total Bilirubin 0.3, AST 23, ALT 37, Alkaline Phosphatase 119 H, Lipase 39 L Assessment and Plan - Problems (Diagnosis) (1) Acute metabolic encephalopathy Current Visit: No Status: Acute (2) Alcohol abuse Current Visit: No Status: Chronic (3) Altered mental status Current Visit: No Status: Acute Qualifiers: Altered mental status type: transient alteration of awareness Qualified Code(s): R40.4 - Transient alteration of awareness (4) History of bipolar disorder Current Visit: No Status: Chronic (5) Hyponatremia Current Visit: No Status: Acute (6) Hypothyroidism Current Visit: No Status: Acute Qualifiers: Hypothyroidism type: unspecified Qualified Code(s): E03.9 - Hypothyroidism, unspecified (7) Leukocytosis Current Visit: No Status: Acute Qualifiers: Leukocytosis type: unspecified Qualified Code(s): D72.829 - Elevated white blood cell count, unspecified (8) Anxiety Onset Date: 11/21/16 Current Visit: No Status: Chronic - Plan nephrology consulted continue NS at 60cc/hr, monitor BMP q6 hours seizure precautions, alcohol withdrawal protocol, neurochecks TSH, T4 pending UA, UDS, ammonia pending blood cultures pending antiemetics as needed sliding scale insulin and accuchecks reconcile and continue home medications DVT ppx Discharge Plan: Home Plan to discharge in: 72 Hours - Advance Directives Does patient have a Living Will: No Does patient have a Durable POA for Healthcare: No - Code Status/Comfort Care Code Status Assessed: Yes (full code ) Critical Care: No Time Spent Managing Pts Care (In Minutes): 70
[2021-04-06] MEDS ORDERED: ACETAMINOPHEN 500 MG TAB PO PRN (23:04)
[2021-04-06] MEDS ORDERED: HYDRALAZINE HCL 20 MG/ML VIAL IV PRN (23:04)
[2021-04-06] MEDS ORDERED: ONDANSETRON 4 MG/2 ML VIAL IV PRN (23:04)
[2021-04-06] MEDS ORDERED: NA CHLORIDE 0.9% 1,000 ML IV SCH (23:04)
[2021-04-07 00:03] VITALS: BMI 29.0
[2021-04-07] MEDS: LORazepam 2 MG/ML VIAL IV PRN ×2 (00:14→08:21)
[2021-04-07] MEDS ORDERED: WATER FOR INJ,STERILE 10 ML IM PRN (00:44)
[2021-04-07] MEDS ORDERED: ZIPRASIDONE MESYLA 20 MG/VIAL IM ONE ×2 (00:44→00:48)
[2021-04-07 01:24] LABS: Potassium 4.1 mmol/L (3.5-5.1)
[2021-04-07] MEDS ORDERED: KETOROLAC 30 MG/ML INJ IV ONE (02:42)
[2021-04-07] MEDS ORDERED: clonazePAM 1 MG TAB PO ONE (02:42)
[2021-04-07] MEDS ORDERED: clonazePAM 1 MG TAB ONE (02:51)
[2021-04-07] MEDS ORDERED: KETOROLAC 30 MG/ML INJ ONE (02:52)
[2021-04-07 03:28] LABS: Absolute Lymphocytes (CBC) 2.5 K/uL (0.7-4.9); Hematocrit 42.9 % (36.0-45.0); Lymphocytes % 17.6 % (15.3-44.8); MPV 6.7 fL (7.6-11.3); RBC Red Blood Cell Count 4.78 M/uL (3.86-4.86)
[2021-04-07 03:56] LABS: Magnesium 1.8 mg/dL (1.8-2.4); Phosphorus 2.6 mg/dL (2.5-4.9); Potassium 3.5 mmol/L (3.5-5.1)
[2021-04-07 04:04] LABS: Thyroid Stimulating Hormone 4.42 uIU/mL (0.360-3.740)
[2021-04-07] MEDS: INSULIN -REGULAR HUMAN 50 UNIT/0.5 ML ML SQ SCH ×2 (07:30→11:30)
[2021-04-07] MEDS ORDERED: LORazepam 2 MG/ML VIAL ONE (08:19)
[2021-04-07] MEDS ORDERED: ONDANSETRON 4 MG/2 ML VIAL ONE (08:20)
[2021-04-07 09:22] VITALS: O2SAT 94
[2021-04-07 13:09] LABS: Potassium 3.5 mmol/L (3.5-5.1)
[2021-04-07] MEDS ORDERED: SODIUM CHLORIDE 0.9% 10ML INJ IV PRN (13:42)
[2021-04-07] MEDS ORDERED: PANTOPRAZOLE 40 MG INJ IVP SCH (13:42)
--- NOTE | 2021-04-07 13:43 | P.PN ---
Subjective Date of Service: 04/07/21 Chief Complaint: hyponatremia, AMS Patient is awake and interactive. She denies drinking alcohol every day and states that she only drank half a glass of beer. Sodium level is improving. She has been experiencing nausea and vomiting. Physical Examination - Vital Signs Temperature: 97.6 F Blood Pressure: 143/74 Pulse: 89 Respirations: 17 Pulse Ox (%): 97 - Physical Exam General: Alert, In no apparent distress, Oriented x3 Neck: Supple, JVD not distended Respiratory: Clear to auscultation bilaterally, Normal air movement Cardiovascular: No edema, Regular rate/rhythm, Normal S1 S2 Gastrointestinal: Soft and benign, Non-distended Musculoskeletal: No swelling, No tenderness Integumentary: No rashes, No erythema Neurological: Normal strength at 5/5 x4 extr, Cranial nerves 3-12 intact - Studies Laboratory Data (last 24 hrs) 04/06/21 17:06: WBC 12.90 H D, Hgb 13.6, Hct 39.8, Plt Count 392 04/06/21 17:06: Sodium 114 L*, Potassium 3.5, BUN 14, Creatinine 0.77, Glucose 201 H, Total Bilirubin 0.3, AST 23, ALT 37, Alkaline Phosphatase 119 H, Lipase 39 L Assessment And Plan - Current Problems (Diagnosis) (1) Hyponatremia Current Visit: No Status: Acute (2) Hypothyroidism Current Visit: No Status: Acute Qualifiers: Hypothyroidism type: unspecified Qualified Code(s): E03.9 - Hypothyroidism, unspecified (3) Seizure disorder Current Visit: No Status: Acute (4) Alcohol abuse Current Visit: No Status: Chronic - Plan Nephrology input appreciated. Patient likely has beer potomania. Sodium level corrected by 10 mEq over 20 hours. Hold normal saline briefly. Continue to monitor BMP every 4 hours. Nephrology to follow. Supportive measures. Monitor for alcohol withdrawal. IV Protonix for possible alcoholic gastritis.
[2021-04-07 13:57] VITALS: BP 208/93; TEMP 97.5
[2021-04-07] MEDS ORDERED: INFLUENZA VACCINE (for 6+ mo) 0.5 ML DOSE IMVAC ONE (14:00)
[2021-04-07 14:48] LABS: BUN Blood Urea Nitrogen 12 mg/dL (7-18); Bicarbonate 27 mmol/L (21-32); Glucose Level 156 mg/dL (74-106); Potassium 3.4 mmol/L (3.5-5.1); Sodium Level 124 mmol/L (136-145)
[2021-04-07] MEDS ORDERED: POTASSIUM CL SA 10 MEQ TAB PO ONE (15:00)
[2021-04-07] MEDS ORDERED: Ringers Lactate 1,000 ML IV SCH (15:00)
[2021-04-07] MEDS ORDERED: HYDROCODONE/APAP 5/325 MG TAB PO ONE (15:55)
--- NOTE | 2021-04-07 22:50 | RAD REPORT ---
EXAM DESCRIPTION: CT - Head Brain Wo Cont - 04/07/2021 2:34 am CLINICAL HISTORY: AMS TECHNIQUE: Axial computed tomography images of the head/brain without intravenous contrast. Sagittal and coron al reformatted images were created and reviewed. This CT exam was performed using one or more of th e following dose reduction techniques: automated exposure control, adjustment of the mA and/or kV a ccording to patient size, and/or use of iterative reconstruction technique. COMPARISON: 03/09/2021 FINDINGS: Brain: Mild cerebral atrophy. No hemorrhage. No significant white matter disease. Ventricles: Unremarkable. No ventriculomegaly. Bones/joints: Remote bilateral nasal bone and left orbital floor fractures. Soft tissues: Unremarkable. Vasculature: There is atherosclerotic disease of the internal carotid arteries bilaterally. Sinuses: Unremarkable as visualized. No acute sinusitis. Mastoid air cells: Unremarkable as visualized. No mastoid effusion. IMPRESSION: 1. No acute hemorrhage, focal mass or large territory infarction. 2. Other findings as above. Electronically signed by: Eloy Marie MD 04/06/2021 11:49 PM AUTOMOTIVE ENGINEERING TECHNICIAN Due to temporary technical issues with the PACS/Fluency reporting system, reports are being signed by the in house radiologists without review as a courtesy to insure prompt reporting. The interpreting radiologist is fully responsible for the content of the report.
--- NOTE | 2021-04-08 18:57 | P.DS ---
Admission Date: 04/06/21 Discharge Date: 04/07/21 Disposition: AMA-LEFT AGAINST MEDICAL ADVIC Reason for Admission: hyponatremia, AMS - Problems (1) Hyponatremia Status: Acute (2) Hypothyroidism Status: Acute Qualifiers: Hypothyroidism type: unspecified Qualified Code(s): E03.9 - Hypothyroidism, unspecified (3) Seizure disorder Status: Acute (4) Alcohol abuse Status: Chronic Brief History of Present Illness: Ms. Amanda is a 60 yo F with chronic hyponatremia, HTN, hypothyroidism, anxiety, alcohol & tobacco use disorder who presented with 3 days of intractable nausea and vomiting and severe right sided abdominal pain. Denies fever, diarrhea. She was oriented to person and place. She stated she drank half a beer yesterday to force herself to vomit, but otherwise she reports she does not drink. She has had multiple admissions for hyponatremia and nausea and vomiting in the past, usually resolved with IV NS. She has had alcohol withdrawal related seizures in the past. Initially patient was to be transferred to the [facility] for an ICU bed, but the patient refused transfer. She reported she needed to go home so she can take care of her mother, but was told her sodium is too low for discharge, and she acknowledged understanding this. Nephrology was contacted and recommended initiating 60cc/hr of NS and monitoring sodium levels. Patient hospitalized for further management. Hospital Course: Patient admitted to the medical floor and treated with IV normal saline for hyponatremia. History and level improved from 114 to 124. Ms Access Database Developer reached her normal saline to Ringer's lactate. Beer potomania suspected. No evidence of alcohol withdrawal. She was started on IV Protonix for possible alcoholic gastritis. Patient later decided to sign out AGAINST MEDICAL ADVICE stating her pain is uncontrolled. She stated that she gets her [place] prescription from Dr. Smith. I offered her [place] for pain control but need to confirm her [place] prescription and refills with Dr. Smith. She acknowledged the understanding that she need to stay for further treatment of hyponatremia and that she can have medical complications including arrhythmias and encephalopathy from the untreated hyponatremia. Patient decided to stay for treatment. I noted by chart review patient later signed out AGAINST MEDICAL ADVICE. Vital Signs/Physical Exam: Temp Pulse Resp BP Pulse Ox 97.5 F 85 20 208/93 H 97 04/07/21 13:55 04/07/21 13:55 04/07/21 13:55 04/07/21 13:55 04/07/21 13:55 Laboratory Data at Discharge: WBC 14.30 K/uL (4.3-10.9) H 04/07/21 03:02 Hgb 14.9 g/dL (12.0-15.0) 04/07/21 03:02 Hct 42.9 % (36.0-45.0) 04/07/21 03:02 Plt Count 410 K/uL (152-406) H 04/07/21 03:02 Sodium Cancelled 04/07/21 21:45 Potassium Cancelled 04/07/21 21:45 BUN Cancelled 04/07/21 21:45 Creatinine Cancelled 04/07/21 21:45 Glucose Cancelled 04/07/21 21:45 Phosphorus 2.6 mg/dL (2.5-4.9) 04/07/21 03:02 Magnesium 1.8 mg/dL (1.8-2.4) 04/07/21 03:02 Total Bilirubin 0.3 mg/dL (0.2-1.0) 04/06/21 17:06 AST 23 U/L (15-37) 04/06/21 17:06 ALT 37 U/L (12-78) 04/06/21 17:06 Alkaline Phosphatase 119 U/L (45-117) H 04/06/21 17:06 Triglycerides 108 mg/dL (<150) 04/07/21 03:02 Cholesterol 286 mg/dL (<200) H 04/07/21 03:02 HDL Cholesterol 73 mg/dL (40-60) H 04/07/21 03:02 Cholesterol/HDL Ratio 3.92 04/07/21 03:02 Amylase 24 U/L (25-115) L 04/07/21 00:56 Lipase 39 U/L (73-393) L 04/06/21 17:06 Home Medications: Benztropine Mesylate [Cogentin] 0.5 mg PO BEDTIME 03/10/21 Doxepin HCl [Sinequan] 50 mg PO BEDTIME 03/10/21 Levothyroxine Sodium [Synthroid] 137 mcg PO DAILY 03/10/21 Linaclotide [Linzess] 72 mcg PO DAILYPRN PRN 03/10/21 Losartan/Hydrochlorothiazide [Losartan-Hctz 100-25 mg Tab] 1 each PO DAILY 03/10/21 Metformin HCl [Glucophage] 500 mg PO BIDWM 03/10/21 Metoclopramide HCl [Reglan] 10 mg PO QID 03/10/21 OXcarbazepine [Trileptal] 2 tab PO DAILY AFTER SUPPER 03/10/21 OXcarbazepine [Trileptal] 600 mg PO DAILY 03/10/21 Omeprazole [Prilosec] 40 mg PO DAILY 03/10/21 Propranolol [Inderal] 10 mg PO BIDP PRN 03/10/21 Risperidone [Risperdal] 2 mg PO BID 03/10/21 Zolpidem Tartrate [Ambien] 10 mg PO BEDTIME 03/10/21 cloNIDine HCL [Catapres] 0.3 mg PO Q8HP PRN 03/10/21 clonazePAM [Klonopin] 1 mg PO TIDP PRN 03/10/21 ondansetron HCL [Zofran] 4 mg PO Q8HP PRN 03/10/21 Followup: NONE,NONE [Primary Care Provider] -
== END 2021-04-07 16:09 | disposition left against medical advice (07) | DRG 640 ==
LOC: ER 16:30 → ERHOLD 21:53 → 2ND 04-07 12:33
PROVIDERS: ADMIT Internal Medicine; ATTEND Internal Medicine
DX: E87.1 Hypo-osmolality and hyponatremia (principal); G93.41 Metabolic encephalopathy; E03.9 Hypothyroidism, unspecified; F10.10 Alcohol abuse, uncomplicated; F41.9 Anxiety disorder, unspecified; K29.20 Alcoholic gastritis without bleeding; D72.829 Elevated white blood cell count, unspecified; F17.210 Nicotine dependence, cigarettes, uncomplicated; G40.909 Epilepsy, unspecified, not intractable, without status epilepticus; I10 Essential (primary) hypertension; Z79.84 Long term (current) use of oral hypoglycemic drugs; Z79.890 Hormone replacement therapy; Z53.29 Procedure and treatment not carried out because of patient's decision for other reasons; Z79.899 Other long term (current) drug therapy; Z88.8 Allergy status to other drugs, medicaments and biological substances; Z20.822 Contact with and (suspected) exposure to COVID-19
CPT/HCPCS: 36415; 70450; 74177; 80048; 80061; 80076; 80320; 82140; 82150; 82947; 83690; 83735; 84100; 84439; 84443; 84484; 85025; 93005; 94760; 99285; C9113; J0360; J1200; J1940; J2405; J2550; J2765; J3486; J7030; J7120; Q9967; U0003

== ENCOUNTER 2021-04-13 12:41 | Emergency (ER) | payer OTHER ==
--- OUTSIDE RECORDS SUMMARY | 2021-04-13 12:46 | XMS REPORT | Continuity of Care Document ---
:1960 Author Organization [facility] t Address [address] [place] [address] Care Team Providers Name Role Phone Sharpless Primary Care Physician RADHA SIMPSON Attending Clinician Unavailable RADHA SIMPSON Attending Clinician Unavailable Doctor Unassigned, Name Attending Clinician Unavailable RAGHU Attending Clinician Unavailable Nazanin CLARK A Attending Clinician Payers Payer Name Policy Type Policy Number Effective Date Expiration Date [facility] STAR [id number] 2017 00:00:00 PLUS Problems This patient has no known problems. Allergies, Adverse Reactions, Alerts Allergy Allergy Status Severity Reaction(s) Onset Inactive Treating Comm ents Source Name Type Date Date Clinician NITRO DRUG Active Other-Cmnt 2019-0 Univer s TRANSDER 07-27 ity of MAL 00:00: [address] [place] ACETAMIN DRUG Active Other-Cmnt 2019-0 Univ ers OPHEN INGREDI 07-27 ity of 00:00: [address] Social History Social Habit Start Date Stop Date Quantity Comments Source Sex Assigned At [facility] Alcohol intake 2016-05-01 2016-05-01 Current [facility] 00:00:00 00:00:00 non-drinker of Medical Ce nter alcohol (finding) Smoking Status Start Date Stop Date Source Current every day smoker 2016-05-01 00:00:00 [facility] Medications Ordered Filled Start Stop Current Ordering Indication Dosage Frequency Signature Comments Components Source Medication Medication Date Date Medication? Clinician (SIG) Name Name OXcarbazepi Yes 600mg [id number] Take [address] ne 2-23 [id number] mg by [facility] - (TRILEPTAL) 10:23: 3D [...] Department ID 2020-08-03 2020-08-03 Outpatient MATT VÁSQUEZ [facility] [id number] Univers 10:00:00 10:00:00 MATT SIMPSON [id number] [facility] 2020-08-03 2020-08-03 Outpatient MATT VÁSQUEZ [facility] [id number] Univers 10:00:00 10:00:00 MATT SIMPSON [facility] 2020-07-25 2020-07-25 Orders Doctor ABE [id number] 00:00:00 00:00:00 Only Unassigned, BK [id number] [place] [facility] [id number] 2019-09-26 2019-09-26 Outpatient Bertin KRISHNAMURTHY [facility] [id number] Univers 16:00:00 16:00:00 WALLY [facility] 2019-09-26 2019-09-26 [facility] [id number] Univers 16:00:00 16:00:00 WALLY yeager [facility] 2018-10-21 2018-10-21 Telephone Man [facility] [id number] 00:00:00 00:00:00 Natacha Nguyen [id number] [facility] [id number] [phone] [facility] 204 [facility] Results This patient has no known results.
[2021-04-13] MEDS ORDERED: ONDANSETRON 4 MG/2 ML VIAL ONE (15:34)
[2021-04-13 15:57] LABS: Absolute Lymphocytes (CBC) 2.6 K/uL (0.7-4.9); Hematocrit 40.1 % (36.0-45.0); Lymphocytes % 20.6 % (15.3-44.8); RBC Red Blood Cell Count 4.34 M/uL (3.86-4.86)
[2021-04-13 16:05] LABS: Albumin 3.9 g/dL (3.4-5.0); Bilirubin Direct 0.1 mg/dL (0-0.2); Bilirubin Total 0.3 mg/dL (0.2-1.0); Potassium 3.7 mmol/L (3.5-5.1); Protein, Total 8.9 g/dL (6.4-8.2)
[2021-04-13 16:13] LABS: MPV 6.9 fL (7.6-11.3)
--- NOTE | 2021-04-13 16:27 | RAD REPORT ---
EXAM DESCRIPTION: US - Abdomen Exam Limited - 04/13/2021 4:00 pm CLINICAL HISTORY: Abdominal pain. COMPARISON: March 2021 FINDINGS: The gallbladder wall is not thickened. A gallstone is not seen. Previously described 2 sm all echogenic structures within the gallbladder wall with comet tail artifact are not clearly seen on this exam. They most likely are present and not seen secondary to technical factors. The biliary tree is normal caliber. IMPRESSION: No acute abnormality is displayed. Negative for cholelithiasis
--- NOTE | 2021-04-13 17:59 | RAD REPORT ---
EXAM DESCRIPTION: CT - Abdomen Pelvis Wo Contrast - 04/13/2021 5:41 pm CLINICAL HISTORY: Abdominal pain COMPARISON: March 2020 TECHNIQUE: Computed axial tomography of the abdomen and pelvis was obtained. Oral contrast was not a dministered. Due to lack of intravenous access IV contrast could not be administered. The there is a small amount of contrast within the genitourinary system. All CT scans are performed using dose optimization technique as appropriate and may include automated exposure control or mA/KV adjustment according to patient size. FINDINGS: The evaluation of solid organs, vessels and bowel is limited secondary to the lack of con trast administration. The liver, spleen, pancreas, adrenals and left kidney appear grossly normal. 2.9 centimeter low-density area midpole left kidney extending to the periphery The appendix is normal. There is no evidence of diverticulitis. Small hiatal hernia IMPRESSION: 2.9 centimeter low-density area left kidney may represent pyelonephritis
[2021-04-13 18:12] LABS: Urine Blood 2+ (Negative); Urine Glucose Negative (Negative); Urine Protein 2+ (Negative); Urine pH 5.5 (5.0-7.0)
--- NOTE | 2021-04-13 18:16 | EDPHYS ---
Physician Documentation [facility] Name: Jaimie Amanda Age: 60 yrs Sex: Female : 1960 Arrival Date: 04/13/2021 Time: 12:42 Bed 8 Private MD: ED Physician Villa Byrd HPI: 04/13 15:53 This 60 yrs old Female presents to ER via Ambulatory with complaints of Abdominal Pain. rn 15:53 The patient presents with abdominal pain in the right upper quadrant, right lower rn quadrant. Onset: The symptoms/episode began/occurred 3 day(s) ago. The symptoms radiate to. Associated signs and symptoms: Pertinent positives: anorexia, nausea, vomiting, Pertinent negatives: blood in stools, fever. The symptoms are described as crampy, intermittent. Modifying factors: The symptoms are alleviated by nothing, the symptoms are aggravated by touching the area. Severity of pain: At its worst the pain was moderate in the emergency department the pain is unchanged. The patient has experienced a previous episode. The patient has not recently seen a physician. Historical: - Home Meds: 13:03 Synthroid Oral [Active]; jh5 - PMHx: 13:03 Hypertensive disorder; Hypothyroidism; jh5 - Immunization history:: Adult Immunizations up to date. - Social history:: Smoking status: Patient reports the use of cigarette tobacco products, smokes one pack cigarettes per day. - Family history:: not pertinent. - Hospitalizations: : No recent hospitalization is reported. ROS: 15:53 Constitutional: Negative for fever, chills, and weight loss, Eyes: Negative for injury, rn pain, redness, and discharge, Neck: Negative for injury, pain, and swelling, Cardiovascular: Negative for chest pain, palpitations, and edema, Respiratory: Negative for shortness of breath, cough, wheezing, and pleuritic chest pain, Abdomen/GI: + right upper quadrant abd pain and vomiting. Back: Negative for injury and pain, : Negative for injury, bleeding, discharge, and swelling, MS/Extremity: Negative for injury and deformity, Skin: Negative for injury, rash, and discoloration, Neuro: Negative for headache, weakness, numbness, tingling, and seizure. Exam: 15:53 Constitutional: This is a well developed, well nourished patient who is awake, alert, rn and in no acute distress. Ambulatory to room without difficulty or assistance. Head/Face: Normocephalic, atraumatic. Eyes: Periorbital areas with no swelling, redness, or edema. Cardiovascular: Regular rate and rhythm. No pulse deficits. Respiratory: No increased work of breathing, no retractions or nasal flaring. Abdomen/GI: soft, mild RUQ tenderness, no rebound or masses Skin: Warm, dry MS/ Extremity: Pulses equal, no cyanosis Neuro: Awake and alert, GCS 15 Vital Signs: 13:00 BP 190 / 90; Pulse 72; Resp 18; Temp 97.5; Pulse Ox 96% ; Weight 74.84 kg; Height 5 ft. jh5 7 in. (170.18 cm); 17:16 BP 168 / 89; Pulse 77; Resp 17; Temp 97.6(O); Pulse Ox 100% ; Pain 5/10; jh6 18:22 Pulse 78; Resp 16 S; Pulse Ox 100% on R/A; jd3 13:00 Body Mass Index 25.84 (74.84 kg, 170.18 cm) 5 MDM: 15:11 Patient medically screened. rn 18:14 Differential diagnosis: appendicitis, cholecystitis, Cholelithiasis, diverticulitis, rn gastritis, non-specific abd pain, pancreatitis, Peptic Ulcer Disease, urinary tract infection. Differential diagnosis: Ureterolithiasis. Data reviewed: vital signs, nurses notes, lab test result(s). Data reviewed: radiologic studies, CT scan, ultrasound, and as a result, I will discharge patient. Counseling: I had a detailed discussion with the patient and/or guardian regarding: the historical points, exam findings, and any diagnostic results supporting the discharge/admit diagnosis, lab results, radiology results, the need for outpatient follow up, to return to the emergency department if symptoms worsen or persist or if there are any questions or concerns that arise at home. Response to treatment: the patient's symptoms have markedly improved after treatment, and as a result, I will discharge patient. Special discussion: Based on the patient's Hx, exam, and Dx evaluation, there is no indication for emergent surgery or inpatient Tx. It is understood by the patient/guardian that if the Sx's persist or worsen they need to return immediately for re-evaluation. I discussed with the patient/guardian in detail that at this point there is no indication for admission to the hospital. It is understood, however, that if the symptoms persist or worsen the patient needs to return immediately for re-evaluation. 04/13 15:16 Order name: Basic Metabolic Panel; Complete Time: 16:32 rn 04/13 15:16 Order name: CBC with Diff rn 04/13 15:16 Order name: Hepatic Function; Complete Time: 16:32 rn 04/13 15:16 Order name: Lipase; Complete Time: 16:32 rn 04/13 15:16 Order name: SARS-COV-2 RT PCR (Document "Date of Onset" if Symptomatic); Complete Time: rn 16:32 04/13 18:02 Order name: Urine Culture rn 04/13 15:16 Order name: US Abdomen Limited; Complete Time: 16:32 rn 04/13 17:40 Order name: Abdomen ; Complete Time: 18:01 EDMS 04/13 18:02 Order name: Urine Microscopic Only rn 04/13 18:11 Order name: Urine Dipstick-Ancillary EDMO 04/13 15:16 Order name: IV Saline Lock; Complete Time: 15:53 rn 04/13 15:16 Order name: Labs collected and sent; Complete Time: 15:53 rn 04/13 18:02 Order name: Urine Dipstick-Ancillary (obtain specimen); Complete Time: 18:04 rn Administered Medications: 15:53 Drug: Zofran (Ondansetron) 4 mg Route: IVP; Site: right antecubital; jd3 16:50 Follow up: Response: No adverse reaction jd3 18:14 CANCELLED (Duplicate Order): Cipro (ciprofloxacin) 400 mg 200 ml IVPB once over 60 mins rn 18:21 Drug: Cipro (ciprofloxacin) 500 mg Route: PO; jd3 18:21 Follow up: Response: Medication administered at discharge. jd3 Disposition Summary: 04/13/21 18:15 Discharge Ordered Location: Home rn Problem: new rn Symptoms: have improved rn Condition: Stable rn Diagnosis - UTI/ Urinary tract infection, site not specified rn - Abdominal pain, unspecified rn Followup: rn - With: Private Physician - When: As needed - Reason: Recheck today's complaints, Re-evaluation by your physician Discharge Instructions: - Discharge Summary Sheet rn - Abdominal Pain, Adult rn - Urinary Tract Infection, Adult rn Forms: - Medication Reconciliation Form rn - Thank You Letter rn - Antibiotic defense attorney - Prescription Opioid Use rn Prescriptions: - ondansetron 4 mg Oral tablet,disintegrating - take 1 tablet by ORAL route every 8 hours As needed; 15 tablet; Refills: 0, rn Product Selection Permitted - Cipro 500 mg Oral Tablet - take 1 tablet by ORAL route every 12 hours for 10 days; 20 tablet; Refills: 0, rn Product Selection Permitted Signatures: Dispatcher [employer] Villa Villanueva MD MD rn Davies, Jonathon, RN RN jSandi Barton RN RN 5 Corrections: (The following items were deleted from the chart) 13:04 13:03 Allergies: Motrin; [place] [id number] 15:55 15:53 The patient presents with abdominal pain right lower quadrant, rn rn 15:55 15:53 Associated signs and symptoms: Pertinent positives: anorexia, nausea, vomiting, rn Pertinent negatives: blood in stools, fever, rn 17:40 15:16 Abdomen Pelvis W Con+CT.RAD.BRZ ordered. [facility] 18:14 18:12 Cipro (ciprofloxacin) 400 mg 200 ml IVPB once over 60 mins ordered. rn rn
--- NOTE | 2021-04-13 18:16 | ER ---
Nurse's Notes [facility] Name: Jaimie Amanda Age: 60 yrs Sex: Female : 1960 Arrival Date: 04/13/2021 Time: 12:42 Bed 8 Private MD: Diagnosis: UTI/ Urinary tract infection, site not specified;Abdominal pain, unspecified Presentation: 04/13 13:00 Chief complaint: Patient states: abdominal pain x3 days to right side of abdomen; jh5 denies nausea and diarrhea. Coronavirus screen: Vaccine status: Patient reports receiving the 2nd dose of the covid vaccine. Client denies travel out of the [place] in the last 14 days. Ebola Screen: Patient negative for fever greater than or equal to 101.5 degrees Fahrenheit, and additional compatible Ebola Virus Disease symptoms Patient denies exposure to infectious person. Patient denies travel to an Ebola-affected area in the 21 days before illness onset. Initial Sepsis Screen: Does the patient meet any 2 criteria? No. Patient's initial sepsis screen is negative. Does the patient have a suspected source of infection? No. Patient's initial sepsis screen is negative. Risk Assessment: Do you want to hurt yourself or someone else? Patient reports no desire to harm self or others. Onset of symptoms. 13:00 Method Of Arrival: Ambulatory [facility] 13:00 Acuity: ZHEN 3 jh5 Triage Assessment: 13:03 General: Appears in no apparent distress. slender, unkempt, Behavior is calm, jh5 cooperative, appropriate for age. Pain: Complains of pain in abdomen. GI: Abd is soft Abdomen is tender to palpation. Historical: - Home Meds: 13:03 Synthroid Oral [Active]; jh5 - PMHx: 13:03 Hypertensive disorder; Hypothyroidism; jh5 - Immunization history:: Adult Immunizations up to date. - Social history:: Smoking status: Patient reports the use of cigarette tobacco products, smokes one pack cigarettes per day. - Family history:: not pertinent. - Hospitalizations: : No recent hospitalization is reported. Screenin:32 Abuse screen: Denies threats or abuse. Denies injuries from another. Nutritional 5 screening: No deficits noted. Tuberculosis screening: No symptoms or risk factors identified. Fall Risk None identified. Assessment: 14:33 GI: Bowel sounds present X 4 quads. jh5 17:18 Reassessment: No changes from previously documented assessment. Patient and/or family jh6 updated on plan of care and expected duration. Pain level reassessed. states that she is still feeling nauseated. 18:21 Reassessment: No changes from previously documented assessment. Patient and/or family jd3 updated on plan of care and expected duration. Pain level reassessed. assisted pt in calling ride. Vital Signs: 13:00 BP 190 / 90; Pulse 72; Resp 18; Temp 97.5; Pulse Ox 96% ; Weight 74.84 kg; Height 5 ft. jh5 7 in. (170.18 cm); 17:16 BP 168 / 89; Pulse 77; Resp 17; Temp 97.6(O); Pulse Ox 100% ; Pain 5/10; jh6 18:22 Pulse 78; Resp 16 S; Pulse Ox 100% on R/A; jd3 13:00 Body Mass Index 25.84 (74.84 kg, 170.18 cm) jh5 ED Course: 12:42 Patient arrived in ED. as 13:03 Triage completed. jh5 13:03 Arm band placed on right wrist. jh5 14:32 Patient has correct armband on for positive identification. jh5 14:32 No provider procedures requiring assistance completed. jh5 15:11 Villa Byrd MD is Attending Physician. rn 15:31 Rene Lilly, CATY is Primary Nurse. jd3 15:49 COVID swab sent to lab. Inserted saline lock: 22 gauge in right antecubital area, using jh6 aseptic technique. Blood collected. 16:00 US Abdomen Limited In Process Unspecified. EDMS 16:00 GB ultrasound at bedside at this time. jh6 16:40 IV discontinued, intact, iv that was started to lt ac was d/c'd after not flushing well jh6 when in ct. 17:17 Inserted saline lock: 18 gauge in left antecubital area, using aseptic technique. jh6 17:41 Abdomen In Process Unspecified. EDMS Administered Medications: 15:53 Drug: Zofran (Ondansetron) 4 mg Route: IVP; Site: right antecubital; jd3 16:50 Follow up: Response: No adverse reaction jd3 18:14 CANCELLED (Duplicate Order): Cipro (ciprofloxacin) 400 mg 200 ml IVPB once over 60 mins rn 18:21 Drug: Cipro (ciprofloxacin) 500 mg Route: PO; jd3 18:21 Follow up: Response: Medication administered at discharge. j Outcome: 18:15 Discharge ordered by . rn 18:28 Discharged to home ambulatory, with family. jd3 18:28 Condition: stable 18:28 Discharge instructions given to patient, Instructed on discharge instructions, follow up and referral plans. medication usage, Demonstrated understanding of instructions, follow-up care, medications, Prescriptions given X 2. 18:29 Patient left the ED. jd3 Addendum: 04/16/2021 13:49 Addendum: Culture Results: Positive urine culture. No further action required. Bacteria i w sensitive to prescribed antibiotic. Signatures: Dispatcher [employer] Ada Proctor Irene, RN RN iw Nieto, Roman, MD MD rn Davies, Jonathon, RN RN jSandi Barton RN RN jh5 Viridiana Noonan RN RN jh6 Corrections: (The following items were deleted from the chart) 04/13 13:04 13:03 Allergies: Motrin; javier jh5
[2021-04-13] MEDS ORDERED: CIPROFLOXACIN HCL 500 MG TAB ONE (18:21)
[2021-04-13 18:29] LABS: Urine Bacteria LOADED /HPF (<20); Urine RBC <5 /HPF (NONE SEEN)
[2021-04-13 18:49] VITALS: BP 168/89; TEMP 97.6; O2SAT 100
[2021-04-13 19:16] LABS: Blood Morphology Comment NOT SEEN (NOT SEEN); Platelet Estimate ADEQ; White Blood Cell Scan OK (OK)
== END 2021-04-13 18:29 | disposition home or self-care (01) ==
LOC: ER 12:41
DX: N39.0 Urinary tract infection, site not specified (principal); E03.9 Hypothyroidism, unspecified; I10 Essential (primary) hypertension; F17.210 Nicotine dependence, cigarettes, uncomplicated; Z20.822 Contact with and (suspected) exposure to COVID-19
CPT/HCPCS: 87088; 85025; 87086; 80048; 36415; 80076; 87077; 87186; 83690; 74176; 76705; 96374; 99284; U0003; J2405; 81003; 81015

== ENCOUNTER 2021-04-21 08:44 | Emergency (ER) | payer OTHER ==
--- OUTSIDE RECORDS SUMMARY | 2021-04-21 08:48 | XMS REPORT | Continuity of Care Document ---
:1960 Author Organization [facility] t Address [address] [place] [address] Care Team Providers Name Role Phone Sharpless Primary Care Physician RADHA SIMPSON Attending Clinician Unavailable RADHA SIMPSON Attending Clinician Unavailable Doctor Unassigned, Name Attending Clinician Unavailable RAGHU Attending Clinician Unavailable Nazanin CLARK A Attending Clinician Payers Payer Name Policy Type Policy Number Effective Date Expiration Date S [facility] STAR [id number] 2017 00:00:00 PLUS Problems This patient has no known problems. Allergies, Adverse Reactions, Alerts Allergy Allergy Status Severity Reaction(s) Onset Inactive Treating Comm ents Source Name Type Date Date Clinician NITRO DRUG Active Other-Cmnt 2019-0 Univer s TRANSDER 07-27 ity of MAL 00:00: [address] [place] ACETAMIN DRUG Active Other-Cmnt 2019-0 Univ ers OPHEN INGREDI 07-27 ity of 00:00: [address] Social History Social Habit Start Date Stop Date Quantity Comments Source Sex Assigned At [facility] Alcohol intake 2016-05-01 2016-05-01 Current [facility] 00:00:00 00:00:00 non-drinker of Medical nter alcohol (finding) Smoking Status Start Date Stop Date Source Current every day smoker 2016-05-01 00:00:00 [facility] Medications Ordered Filled Start Stop Current Ordering Indication Dosage Frequency Signature Comments Components Source Medication Medication Date Date Medication? Clinician (SIG) Name Name OXcarbazepi Yes 600mg [id number] Take [address] ne 2-23 [id number] mg by [facility] - (TRILEPTAL) 10:23: 3D [...] Department ID 2020-08-03 2020-08-03 Outpatient MATT VÁSQUEZ [facility] [id number] Univers 10:00:00 10:00:00 MATT SIMPSON [id number] [facility] 2020-08-03 2020-08-03 Outpatient MATT VÁSQUEZ [facility] [id number] Univers 10:00:00 10:00:00 MATT SIMPSON [facility] 2020-07-25 2020-07-25 Orders Doctor ABE [id number] 00:00:00 00:00:00 Only Unassigned, BK [id number] [place] [facility] [id number] 2019-09-26 2019-09-26 Outpatient Bertin KRISHNAMURTHY [facility] [id number] Univers 16:00:00 16:00:00 WALLY [facility] 2019-09-26 2019-09-26 [facility] [id number] Univers 16:00:00 16:00:00 WALLY yeager [facility] 2018-10-21 2018-10-21 Telephone [facility], [facility] [id number] 00:00:00 00:00:00 Natacha Nguyen [id number] [place] [id number] [facility] [id number] [facility] 204 [facility] Results This patient has no known results.
[2021-04-21 09:46] LABS: Urine Blood Negative (Negative); Urine Glucose Trace (Negative); Urine Protein Negative (Negative); Urine Specific Gravity 1.025 (1.005-1.030); Urine pH 6.5 (5.0-7.0)
[2021-04-21] MEDS ORDERED: PHENAZOPYRIDINE 100MG TAB PO ONE (09:52)
[2021-04-21] MEDS ORDERED: ONDANSETRON 4 MG/2 ML VIAL ONE (09:52)
[2021-04-21] MEDS ORDERED: MORPHINE 4 MG/ML SYR ONE (09:52)
[2021-04-21] MEDS ORDERED: FAMOTIDINE 20 MG/2 ML VIAL IV ONE (09:53)
[2021-04-21] MEDS ORDERED: NA CHLORIDE 0.9% 1,000 ML ONE (09:53)
[2021-04-21 09:54] LABS: Absolute Lymphocytes (CBC) 2.6 K/uL (0.7-4.9); Hematocrit 38.3 % (36.0-45.0); Lymphocytes % 29.6 % (15.3-44.8); MPV 6.8 fL (7.6-11.3); RBC Red Blood Cell Count 4.09 M/uL (3.86-4.86)
[2021-04-21 10:04] LABS: ALT/SGPT 69 U/L (12-78); AST/SGOT 25 U/L (15-37); Albumin 3.5 g/dL (3.4-5.0); Alkaline Phosphatase 115 U/L (45-117); BUN Blood Urea Nitrogen 17 mg/dL (7-18); Bicarbonate 25 mmol/L (21-32); Bilirubin Direct < 0.1 mg/dL (0-0.2); Bilirubin Total 0.2 mg/dL (0.2-1.0); Glucose Level 149 mg/dL (74-106); Lipase 148 U/L (73-393); Potassium 4.3 mmol/L (3.5-5.1); Protein, Total 7.4 g/dL (6.4-8.2); Sodium Level 135 mmol/L (136-145)
--- NOTE | 2021-04-21 11:00 | RAD REPORT ---
EXAM DESCRIPTION: CT - Abdomen Pelvis W Contrast - 04/21/2021 10:44 am CLINICAL HISTORY: ABD PAIN COMPARISON: Abdomen Pelvis W Contrast dated 04/06/2021; Abdomen Pelvis W Contrast dated 03/24/2021 ; Abdomen Pelvis W Contrast dated 03/17/2021; Abdomen Pelvis W Contrast dated 03/08/2021; Abdomen Pelvis W Contrast dated 12/01/2020; Abdomen Pelvis W Contrast dated 11/12/2020; Abdomen Pelvis W Co ntrast dated 10/22/2020; Abdomen Pelvis W Contrast dated 05/12/2020; Abdomen Pelvis W Contrast dated 02/22/2020; Abdomen Pelvis W Contrast dated 02/18/2020; Abdomen Pelvis W Contrast dated ; Abdomen Pelvis W Contrast dated 03/10/2019; Abdomen Pelvis W Contrast dated 08/28/2018; Abdomen Pelvis W Contrast dated 07/05/2018 TECHNIQUE: Biphasic, helical CT imaging of the abdomen and pelvis was performed following 100 ml non -ionic IV contrast. No oral contrast administered. All CT scans are performed using dose optimization technique as appropriate and may include automated exposure control or mA/KV adjustment according to patient size. FINDINGS: No suspicious findings in the lung bases. The liver, spleen, and pancreas show no new or suspicious findings. Gallbladder and biliary tree are also without suspicious finding. Symmetric renal function is seen with no hydronephrosis or suspicious renal mass. No pyelonephritis o r acute parenchymal process. Slight heterogeneity of the attenuation in the superolateral left kidney is believed to be the sequela of a prior pyelonephritis episode in 2019. No bladder abnormalities. N o adrenal abnormalities. Uterus and ovaries show no new or suspicious finding. Small anterior uterine fibroid is present. No dilated bowel loops or bowel wall thickening. No free air, free fluid or inflammatory stranding. No new hernia, mass or bulky lymphadenopathy. No suspicious bony findings. IMPRESSION: Contrast enhanced CT abdomen and pelvis showing no significant or suspicious finding. Slight heterogeneity of the superolateral left renal cortex is believed be sequela of a remote pyelon ephritis episode in 2019. Correlation can be made with any matching clinical finding or UA abnormalit y.
--- NOTE | 2021-04-21 11:17 | EDPHYS ---
Physician Documentation [facility] Name: Jaimie Amanda Age: 60 yrs Sex: Female : 1960 Arrival Date: 04/21/2021 Time: 08:47 Bed 14 Private MD: ED Physician Tera Raymond HPI: 04/21 09:32 This 60 yrs old Female presents to ER via Ambulatory with complaints of Abdominal Pain, kdr Pain With Urination. 09:32 The patient presents with abdominal pain in the epigastric area, in the upper abdomen, kdr in the right upper quadrant, right lower quadrant. Onset: The symptoms/episode began/occurred yesterday. The symptoms radiate to the right flank. Associated signs and symptoms: Pertinent positives: nausea and vomiting, Pertinent negatives: blood in stools, chest pain, diarrhea, fever, headache, hematuria, palpitations, shortness of breath, vaginal discharge, vomiting blood. The symptoms are described as achy, burning, constant, crampy, dull, steady. Modifying factors: The symptoms are alleviated by nothing, the symptoms are aggravated by movement, pressure, touching the area, walking. Severity of pain: At its worst the pain was severe incapacitating just prior to arrival, in the emergency department the pain is unchanged. The patient has experienced similar episodes in the past, a few times, Patient was here couple weeks ago for the same or similar problem. The patient has been recently seen at the [facility] Emergency Department, a couple of weeks ago. Historical: - Allergies: 09:00 Nitroglycerin; "Bottoms BP out"; jl7 - Home Meds: 09:00 Synthroid Oral [Active]; Metformin Oral [Active]; losartan oral [Active]; Clonidine jl7 Oral [Active]; - PMHx: 09:00 Hypertensive disorder; Hypothyroidism; Diabetes mellitus; Anxiety; jl7 - PSHx: 09:00 Thyroidectomy; jl7 - Immunization history:: Client reports receiving the 2nd dose of the Covid vaccine. - Social history:: Smoking status: Patient reports the use of cigarette tobacco products, smokes one-half pack cigarettes per day, Patient/guardian denies using alcohol, the patient reports quitting approximately 6 years ago. ROS: 09:32 Constitutional: Negative for fever, chills, and weight loss, Eyes: Negative for injury, kdr pain, redness, and discharge, Neck: Negative for injury, pain, and swelling, Cardiovascular: Negative for chest pain, palpitations, and edema, Respiratory: Negative for shortness of breath, cough, wheezing, and pleuritic chest pain, Back: Negative for injury and pain, MS/Extremity: Negative for injury and deformity, Skin: Negative for injury, rash, and discoloration, Neuro: Negative for headache, weakness, numbness, tingling, and seizure activity. Psych: Negative for depression, anxiety, suicide ideation, homicidal ideation, and hallucinations, Allergy/Immunology: Negative for hives, rash, and allergies, Endocrine: Negative for neck swelling, polydipsia, polyuria, polyphagia, and marked weight changes, Hematologic/Lymphatic: Negative for swollen nodes, abnormal bleeding, and unusual bruising. 09:32 Abdomen/GI: Positive for abdominal pain, nausea and vomiting, Negative for abdominal cramps, dysphagia, hematemesis, black/tarry stool, rectal pain, rectal bleeding, bowel incontinence. Exam: 09:32 Constitutional: This is a well developed, well nourished patient who is awake, alert, kdr and in no acute distress. Head/Face: Normocephalic, atraumatic. Eyes: Pupils equal round and reactive to light, extra-ocular motions intact. Lids and lashes normal. Conjunctiva and sclera are non-icteric and not injected. Cornea within normal limits. Periorbital areas with no swelling, redness, or edema. Neck: Trachea midline, no thyromegaly or masses palpated, and no cervical lymphadenopathy. Supple, full range of motion without nuchal rigidity, or vertebral point tenderness. No Meningismus. Chest/axilla: Normal chest wall appearance and motion. Nontender with no deformity. No lesions are appreciated. Cardiovascular: Regular rate and rhythm with a normal S1 and S2. No gallops, murmurs, or rubs. Normal PMI, no JVD. No pulse deficits. Respiratory: Lungs have equal breath sounds bilaterally, clear to auscultation and percussion. No rales, rhonchi or wheezes noted. No increased work of breathing, no retractions or nasal flaring. Back: No spinal tenderness. No costovertebral tenderness. Full range of motion. Skin: Warm, dry with normal turgor. Normal color with no rashes, no lesions, and no evidence of cellulitis. MS/ Extremity: Pulses equal, no cyanosis. Neurovascular intact. Full, normal range of motion. Neuro: Awake and alert, GCS 15, oriented to person, place, time, and situation. Cranial nerves II-XII grossly intact. Motor strength 5/5 in all extremities. Sensory grossly intact. Cerebellar exam normal. Normal gait. Psych: Awake, alert, with orientation to person, place and time. Behavior, mood, and affect are within normal limits. 09:32 Abdomen/GI: Inspection: abdomen appears normal, Bowel sounds: normal, Palpation: soft, mild abdominal tenderness, in the epigastric area, right upper quadrant and right lower quadrant, mass, is not appreciated, rebound tenderness, is not appreciated. Vital Signs: 08:58 BP 162 / 120; Pulse 82; Resp 19; Temp 97.9; Pulse Ox 97% ; Weight 74.84 kg; Height 5 jl7 ft. 7 in. (170.18 cm); Pain 9/10; 10:45 BP 169 / 108; Pulse 82; Resp 18; Pain 6/10; jh6 11:56 BP 166 / 112; Pulse 80; Resp 18; Pulse Ox 98% ; Pain 8/10; jh6 08:58 Body Mass Index 25.84 (74.84 kg, 170.18 cm) jl7 MDM: 09:32 Data reviewed: vital signs, nurses notes, lab test result(s), radiologic studies. [facility] 11:17 Patient medically screened. [facility] 04/21 09:19 Order name: Basic Metabolic Panel; Complete Time: 10:11 [facility] 04/21 09:19 Order name: CBC with Diff; Complete Time: 10:11 [facility] 04/21 09:19 Order name: Hepatic Function; Complete Time: 10:11 [facility] 04/21 09:19 Order name: Lipase; Complete Time: 10:11 [facility] 04/21 09:26 Order name: Urine Culture [facility] 04/21 09:27 Order name: Urine Culture [facility] 04/21 09:46 Order name: Urine Dipstick-Ancillary; Complete Time: 10:11 [facility] 04/21 10:11 Order name: CT Abd/Pelvis - IV Contrast Only; Complete Time: 11:04 [facility] 04/21 10:34 Order name: ETOH Level; Complete Time: 11:04 [facility] 04/21 09:19 Order name: IV Saline Lock; Complete Time: 10:05 kdr 04/21 09:19 Order name: Labs collected and sent; Complete Time: 10: [facility] 04/21 09:19 Order name: Urine Dipstick-Ancillary (obtain specimen); Complete Time: 10:05 [facility] Administered Medications: 10:04 Drug: NS 0.9% 1000 ml Route: IV; Rate: 1 bolus; Site: left forearm; 6 10:04 Drug: Pepcid (famotidine) 20 mg Route: IVP; Site: right forearm; 6 10:04 Drug: Pyridium (phenazopyridine) 200 mg Route: PO; 6 10:05 Drug: Zofran (Ondansetron) 4 mg Route: IVP; Site: right forearm; 6 10:05 Drug: morphine 4 mg Route: IVP; Site: right forearm; 6 11:30 Drug: Ketorolac 15 mg Route: IVP; Site: right forearm; 6 11:30 Drug: Phenergan (promethazine) 12.5 mg Route: IVP; Site: right forearm; [facility] Disposition Summary: 04/21/21 11:17 Discharge Ordered Location: Home kdr Problem: an acute exacerbation kdr Symptoms: have improved kdr Condition: Stable kdr Diagnosis - Abdominal pain, unspecified kdr - Other abdominal pain - Right sided and flank kdr Followup: kdr - With: Private Physician - When: 2 - 3 days - Reason: If symptoms return, Further diagnostic work-up, Recheck today's complaints, Continuance of care, Re-evaluation by your physician Discharge Instructions: - Discharge Summary Sheet kdr - Abdominal Pain, Adult kdr - Flank Pain, Adult, [id number] kdr Forms: - Medication Reconciliation Form kdr - Thank You Letter kdr Prescriptions: - Ibuprofen 600 mg Oral Tablet - take 1 tablet by ORAL route every 6 hours As needed take with food; 30 tablet; kdr Refills: 0, Product Selection Permitted - Pyridium 200 mg Oral Tablet - take 1 tablet by ORAL route every 8 hours for 3 days; 9 tablet; Refills: 0, kdr Product Selection Permitted Signatures: Dispatcher [employer] Tera Calderon MD MD kdr Leal, Jahala RN RN jl7 Viridiana Noonan RN RN jh6
--- NOTE | 2021-04-21 11:17 | ER ---
Nurse's Notes [facility] Name: Jaimie Amanda Age: 60 yrs Sex: Female : 1960 Arrival Date: 04/21/2021 Time: 08:47 Bed 14 Private MD: Diagnosis: Abdominal pain, unspecified;Other abdominal pain-Right sided and flank Presentation: 04/21 08:58 Chief complaint: Patient states: RLQ pain, radiates to groin since yesterday, reports jl7 nausea and burning with urination since yesterday. Coronavirus screen: At this time, the client does not indicate any symptoms associated with coronavirus-19. Ebola Screen: No symptoms or risks identified at this time. Initial Sepsis Screen: Does the patient meet any 2 criteria? No. Patient's initial sepsis screen is negative. Does the patient have a suspected source of infection? No. Patient's initial sepsis screen is negative. Risk Assessment: Do you want to hurt yourself or someone else? Patient reports no desire to harm self or others. Onset of symptoms was April 20, 2021. 08:58 Method Of Arrival: Ambulatory [facility] 08:58 Acuity: ZHEN 3 jl7 Triage Assessment: 09:00 General: Appears in no apparent distress. uncomfortable, Behavior is calm, cooperative. jl7 Pain: Complains of pain in right lower quadrant Pain radiates to pelvis Pain currently is 9.5 out of 10 on a pain scale. GI: Reports lower abdominal pain, nausea, vomiting. : Reports burning with urination. Historical: - Allergies: 09:00 Nitroglycerin; "Bottoms BP out"; jl7 - Home Meds: 09:00 Synthroid Oral [Active]; Metformin Oral [Active]; losartan oral [Active]; Clonidine jl7 Oral [Active]; - PMHx: 09:00 Hypertensive disorder; Hypothyroidism; Diabetes mellitus; Anxiety; jl7 - PSHx: 09:00 Thyroidectomy; jl7 - Immunization history:: Client reports receiving the 2nd dose of the Covid vaccine. - Social history:: Smoking status: Patient reports the use of cigarette tobacco products, smokes one-half pack cigarettes per day, Patient/guardian denies using alcohol, the patient reports quitting approximately 6 years ago. Screenin:14 Abuse screen: Denies threats or abuse. Nutritional screening: No deficits noted. jh6 Tuberculosis screening: No symptoms or risk factors identified. Fall Risk None identified. Assessment: 09:15 GI: Bowel sounds present X 4 quads. Abdomen is tender to palpation in suprapubic area. jh6 09:15 General: Appears in no apparent distress. Behavior is calm, cooperative. Pain: 6 Complains of pain in suprapubic area Pain currently is 5 out of 10 on a pain scale. Quality of pain is described as burning, aching, Pain began 1 day ago. Is continuous, Aggravated by voiding. Vital Signs: 08:58 BP 162 / 120; Pulse 82; Resp 19; Temp 97.9; Pulse Ox 97% ; Weight 74.84 kg; Height 5 jl7 ft. 7 in. (170.18 cm); Pain 9/10; 10:45 BP 169 / 108; Pulse 82; Resp 18; Pain 6/10; jh6 11:56 BP 166 / 112; Pulse 80; Resp 18; Pulse Ox 98% ; Pain 8/10; jh6 08:58 Body Mass Index 25.84 (74.84 kg, 170.18 cm) jl7 ED Course: 08:47 Patient arrived in ED. mr 08:53 Tera Raymond MD is Attending Physician. kdr 09:00 Triage completed. jl7 09:00 Arm band placed on right wrist. jl7 09:05 Viridiana Noonan, CATY is Primary Nurse. jh6 09:15 Bed in low position. Call light in reach. Side rails up X 1. jh6 09:40 Inserted saline lock: 24 gauge in right forearm, using aseptic technique. Blood jh6 collected. 10:35 Inserted saline lock: 22 gauge in left forearm, using aseptic technique. jh6 10:[address] via stretcher. jh6 10:44 CT Abd/Pelvis - IV Contrast Only In Process Unspecified. EDMS 11:55 Inserted IV discontinued, intact, bleeding controlled, No redness/swelling at site. jh6 Pressure dressing applied. Administered Medications: 10:04 Drug: NS 0.9% 1000 ml Route: IV; Rate: 1 bolus; Site: left forearm; jh6 10:04 Drug: Pepcid (famotidine) 20 mg Route: IVP; Site: right forearm; jh6 10:04 Drug: Pyridium (phenazopyridine) 200 mg Route: PO; jh6 10:05 Drug: Zofran (Ondansetron) 4 mg Route: IVP; Site: right forearm; 6 10:05 Drug: morphine 4 mg Route: IVP; Site: right forearm; 6 11:30 Drug: Ketorolac 15 mg Route: IVP; Site: right forearm; 6 11:30 Drug: Phenergan (promethazine) 12.5 mg Route: IVP; Site: right forearm; 6 Outcome: 11:17 Discharge ordered by . kdr 11:58 Discharged to home ambulatory. [facility] emergency room 11:58 Condition: good 11:58 Discharge instructions given to patient, Instructed on discharge instructions, follow up and referral plans. Demonstrated understanding of instructions, follow-up care, medications, Prescriptions given X 1. 11:58 Patient left the ED. 6 Signatures: Dispatcher [employer] EDMS Tera Raymond MD MD kdr Rivera, Mary mr Leal, Jahala, RN RN jl7 Viridiana Noonan RN RN jh6
[2021-04-21] MEDS ORDERED: PROMETHAZINE INJ 25 MG/ML AMP ONE (11:39)
[2021-04-21] MEDS ORDERED: KETOROLAC 30 MG/ML INJ ONE (11:39)
[2021-04-21 12:06] VITALS: TEMP 97.9
[2021-04-21 12:08] VITALS: BP 166/112; O2SAT 98
== END 2021-04-21 11:58 | disposition home or self-care (01) ==
LOC: ER 08:44
DX: R10.9 Unspecified abdominal pain (principal); I10 Essential (primary) hypertension; E11.9 Type 2 diabetes mellitus without complications; E03.9 Hypothyroidism, unspecified; F17.210 Nicotine dependence, cigarettes, uncomplicated
CPT/HCPCS: 87088; 85025; 87086; 80048; 36415; 80320; 80076; 81003; 83690; 74177; 96375; 96374; 99284; Q9967; J2550; J7030; J2405

== ENCOUNTER 2021-04-22 10:51 | Emergency (ER) | payer OTHER ==
--- OUTSIDE RECORDS SUMMARY | 2021-04-22 10:54 | XMS REPORT | Continuity of Care Document ---
:1960 Author Organization [facility] t Address [address] [place] [address] Care Team Providers Name Role Phone Sharpless Primary Care Physician RADHA SIMPSON Attending Clinician Unavailable RADHA SIMPSON Attending Clinician Unavailable Doctor Unassigned, Name Attending Clinician Unavailable RAGHU Attending Clinician Unavailable Nazanin CLARK A Attending Clinician Payers Payer Name Policy Type Policy Number Effective Date Expiration Date S [facility] STAR [id number] 2017 00:00:00 PLUS Problems This patient has no known problems. Allergies, Adverse Reactions, Alerts Allergy Allergy Status Severity Reaction(s) Onset Inactive Treating Comm ents Source Name Type Date Date Clinician NITRO DRUG Active Other-Cmnt 2019-0 Univer s TRANSDER 07-27 ity of MAL 00:00: [address] [place] ACETAMIN DRUG Active Other-Cmnt 2019-0 Univ ers OPHEN INGREDI 07-27 ity of 00:00: [address] Social History Social Habit Start Date Stop Date Quantity Comments Source Sex Assigned At [facility] Alcohol intake 2016-05-01 2016-05-01 Current [facility] 00:00:00 00:00:00 non-drinker of Medical Ce nter alcohol (finding) Smoking Status Start Date Stop Date Source Current every day smoker 2016-05-01 00:00:00 [facility] Medications Ordered Filled Start Stop Current Ordering Indication Dosage Frequency Signature Comments Components Source Medication Medication Date Date Medication? Clinician (SIG) Name Name OXcarbazepi Yes 600mg [id number] Take [address] ne 2-23 [id number] [facility] by [facility] - (TRILEPTAL) 10:23: 3D [...] Department ID 2020-08-03 2020-08-03 Outpatient MATT VÁSQUEZ [facility] [id number] Univers 10:00:00 10:00:00 MATT SIMPSON [id number] [facility] 2020-08-03 2020-08-03 Outpatient MATT VÁSQUEZ [facility] [id number] Univers 10:00:00 10:00:00 MATT SIMPSON [facility] 2020-07-25 2020-07-25 Orders Doctor ABE [id number] 00:00:00 00:00:00 Only Unassigned, BK [id number] Philip [facility] [id number] 2019-09-26 2019-09-26 Outpatient Bertin KRISHNAMURTHY [facility] [id number] Univers 16:00:00 16:00:00 WALLY [facility] 2019-09-26 2019-09-26 [facility] [id number] Univers 16:00:00 16:00:00 WALLY yeager [facility] 2018-10-21 2018-10-21 Telephone [facility], [facility] [id number] 00:00:00 00:00:00 Natacha Nguyen [id number] Ade [id number] [facility] [id number] [facility] [address] [facility] Results This patient has no known results.
[2021-04-22 13:32] LABS: Absolute Lymphocytes (CBC) 2.2 K/uL (0.7-4.9); Hematocrit 38.2 % (36.0-45.0); Lymphocytes % 24.7 % (15.3-44.8); RBC Red Blood Cell Count 4.09 M/uL (3.86-4.86)
[2021-04-22] MEDS ORDERED: ACETAMINOPHEN 325 MG TABLET ONE (13:38)
[2021-04-22] MEDS ORDERED: NA CHLORIDE 0.9% 1,000 ML ONE (13:38)
[2021-04-22 13:49] LABS: Potassium 4.1 mmol/L (3.5-5.1)
[2021-04-22] MEDS ORDERED: MORPHINE 4 MG/ML SYR ONE (15:01)
--- NOTE | 2021-04-22 15:14 | EDPHYS ---
Physician Documentation [facility] Name: Jaimie Amanda Age: 60 yrs Sex: Female : 1960 Arrival Date: 04/22/2021 Time: 10:52 Bed 7 Private MD: ED Physician Villa Byrd HPI: 04/22 14:11 This 60 yrs old Female presents to ER via Wheelchair with complaints of Urinary Problem.rn 14:11 The patient presents with urinary symptoms, dysuria, frequency. Onset: The rn symptoms/episode began/occurred 1 week(s) ago. Modifying factors: The symptoms are alleviated by nothing, the symptoms are aggravated by urinating. Associated signs and symptoms: Pertinent positives: dysuria, fever, hematuria, urinary frequency, Pertinent negatives: vaginal discharge. Severity of symptoms: At their worst the symptoms were moderate, in the emergency department the symptoms are unchanged. The patient has experienced similar episodes in the past. The patient has been recently seen by a physician: The patient has been recently seen at the [facility] Emergency Department, yesterday. Pt reports seen here three times already for this, diagnosed with UTI, put on abx, returns because still reports dysuria and feels ill. States pcp told her to come in. . Historical: - Allergies: 11:15 Nitroglycerin; "Bottoms BP out"; ll1 - PMHx: 11:15 Anxiety; diabetes mellitus; Hypertensive disorder; Hypothyroidism; ll1 - PSHx: 11:15 Thyroidectomy; ll1 - Immunization history:: Client reports receiving the 2nd dose of the Covid vaccine, Flu vaccine is up to date. - Social history:: Smoking status: Patient reports the use of cigarette tobacco products, smokes one-half pack cigarettes per day, Reported history of juuling and/or vaping. - Family history:: not pertinent. - Hospitalizations: : No recent hospitalization is reported. ROS: 14:11 Constitutional: + chills and fever Eyes: Negative for injury, pain, redness, and rn transport, ENT: Negative for injury, pain, and discharge, Neck: Negative for injury, pain, and swelling, Cardiovascular: Negative for chest pain, palpitations, and edema, Respiratory: Negative for shortness of breath, cough, wheezing, and pleuritic chest pain, Abdomen/GI: + suprapubic abd pain Back: Negative for injury and pain, : + dysuria and increased urinary frequency MS/Extremity: Negative for injury and deformity, Skin: Negative for injury, rash, and discoloration, Neuro: Negative for headache, numbness, tingling, and seizure. Exam: 14:11 Constitutional: This is a well developed, well nourished patient who is awake, alert, rn and in no acute distress. Head/Face: Normocephalic, atraumatic. ENT: dry MM Cardiovascular: Regular rate and rhythm. No pulse deficits. Respiratory: No increased work of breathing, no retractions or nasal flaring. Abdomen/GI: soft, mild suprapubic tenderness without guarding or rebound Back: No spinal tenderness. No costovertebral tenderness. Full range of motion. Skin: Warm, dry with normal turgor. Normal color with no rashes, no lesions, and no evidence of cellulitis. MS/ Extremity: Pulses equal, no cyanosis. Neurovascular intact. Full, normal range of motion. Equal circumference. Neuro: Awake and alert, GCS 15 Vital Signs: 11:13 BP 175 / 93; Pulse 85; Resp 17; Temp 99.0; Pulse Ox 96% ; Weight 74.84 kg; Height 5 ft. ll1 7 in. (170.18 cm); Pain 10/10; 15:26 BP 155 / 81; Pulse 80; Resp 16; Temp 98.6; Pain 1/10; cb5 11:13 Body Mass Index 25.84 (74.84 kg, 170.18 cm) ll1 MDM: 12:26 Patient medically screened. rn 15:10 Differential diagnosis: kidney stone, nonspecific abdominal pain, ovarian cyst, urinary rn tract infection, pyelonephritis, appendicitis. Data reviewed: vital signs, nurses notes, old medical records, lab test result(s), radiologic studies, and as a result, I will discharge patient. Counseling: I had a detailed discussion with the patient and/or guardian regarding: the historical points, exam findings, and any diagnostic results supporting the discharge/admit diagnosis, lab results, radiology results, the need for outpatient follow up, to return to the emergency department if symptoms worsen or persist or if there are any questions or concerns that arise at home. Response to treatment: the patient's symptoms have mildly improved after treatment, and as a result, I will discharge patient. Special discussion: I discussed with the patient/guardian in detail that at this point there is no indication for admission to the hospital. It is understood, however, that if the symptoms persist or worsen the patient needs to return immediately for re-evaluation. ED course: Normal bloodwork/ct abdomen yesterday as well as preliminary culture showing only mixed marisol. Repeat bloodwork neg today. No indication for repeat CT as has now had 2 neg CTs in a week for same complaint. Stable vitals. Still taking cipro, will continue. Will dc home with pain medication prn and return precautions.. 04/22 12:33 Order name: CBC with Diff rn 04/22 12:33 Order name: Basic Metabolic Panel; Complete Time: 13:56 rn 04/22 12:33 Order name: Urine Microscopic Only rn 04/22 12:33 Order name: Procalcitonin; Complete Time: 14:13 rn 04/22 12:33 Order name: Blood Culture Adult (2) rn 04/22 12:35 Order name: CBC with Automated Diff; Complete Time: 13:56 EDNM 04/22 12:33 Order name: IV Start; Complete Time: 13:35 rn 04/22 12:33 Order name: Urine Dipstick-Ancillary (obtain specimen) rn Administered Medications: 13:39 Drug: NS 0.9% 1000 ml Route: IV; Rate: 1000 ml; Site: right hand; cb5 13:40 Drug: Tylenol 650 mg Route: PO; cb5 15:05 Drug: morphine 4 mg Route: IVP; Site: left hand; cb5 Disposition Summary: 04/22/21 15:13 Discharge Ordered Location: Home rn Problem: an ongoing problem rn Symptoms: have improved rn Condition: Stable rn Diagnosis - Abdominal pain, unspecified rn Followup: rn - With: Private Physician - When: As needed - Reason: Recheck today's complaints, Re-evaluation by your physician Discharge Instructions: - Discharge Summary Sheet rn - Abdominal Pain, Adult rn Forms: - Medication Reconciliation Form rn - Thank You Letter rn - Antibiotic furniture decals inspector - Prescription Opioid Use rn Prescriptions: - Tramadol 50 mg Oral Tablet - take 1 tablet by ORAL route every 8 hours as needed; 12 tablet; Refills: 0, rn Product Selection Permitted Signatures: Dispatcher [facility] Villa Byrd MD MD rn Lewis, Lynsay, RN RN ll1 Lisa Miller, RN RN cb5 Corrections: (The following items were deleted from the chart) 12:52 12:36 Abdomen Pelvis W Con+CT.RAD.BRZ ordered. EDMS EDMS
--- NOTE | 2021-04-22 15:14 | ER ---
Nurse's Notes [facility] Name: Jaimie Amanda Age: 60 yrs Sex: Female : 1960 Arrival Date: 04/22/2021 Time: 10:52 Bed 7 Private MD: Diagnosis: Abdominal pain, unspecified Presentation: 04/22 11:13 Chief complaint: Patient states: Hematuria for [address] Reyes sent her here for ll1 worsening UTI that's backing up into her kidneys. No fever, but has chills/sweats. + nausea. Coronavirus screen: Vaccine status: Patient reports receiving the 2nd dose of the covid vaccine. Client denies travel out of the [place] in the last 14 days. At this time, the client does not indicate any symptoms associated with coronavirus-19. Ebola Screen: Patient denies travel to an Ebola-affected area in the 21 days before illness onset. Initial Sepsis Screen: Does the patient meet any 2 criteria? No. Patient's initial sepsis screen is negative. Does the patient have a suspected source of infection? Yes: Dysuria/Frequency/Urgency/UTI. Risk Assessment: Do you want to hurt yourself or someone else? Patient reports no desire to harm self or others. Onset of symptoms was April 15, 2021. 11:13 Method Of Arrival: Wheelchair ll1 11:13 Acuity: ZHEN 3 ll1 Historical: - Allergies: 11:15 Nitroglycerin; "Bottoms BP out"; ll1 - PMHx: 11:15 Anxiety; diabetes mellitus; Hypertensive disorder; Hypothyroidism; ll1 - PSHx: 11:15 Thyroidectomy; ll1 - Immunization history:: Client reports receiving the 2nd dose of the Covid vaccine, Flu vaccine is up to date. - Social history:: Smoking status: Patient reports the use of cigarette tobacco products, smokes one-half pack cigarettes per day, Reported history of juuling and/or vaping. - Family history:: not pertinent. - Hospitalizations: : No recent hospitalization is reported. Screenin:44 Abuse screen: Denies threats or abuse. Denies injuries from another. Nutritional cb5 screening: No deficits noted. Tuberculosis screening: No symptoms or risk factors identified. Fall Risk None identified. Assessment: 12:25 General: Appears in no apparent distress. Behavior is calm, cooperative, appropriate cb5 for age. Pain: Complains of pain in pelvis Pain currently is 4 out of 10 on a pain scale. Neuro: No deficits noted. Cardiovascular: Reports. Respiratory: No deficits noted. GI: No deficits noted. : Reports burning with urination, pain with urination, urgency. EENT: No deficits noted. Derm: No deficits noted. Musculoskeletal: No deficits noted. 13:10 Pain: Complains of pain in pelvis Pain currently is 2 out of 10 on a pain scale. cb5 15:24 Pain: Pain currently is 1 out of 10 on a pain scale. cb5 Vital Signs: 11:13 BP 175 / 93; Pulse 85; Resp 17; Temp 99.0; Pulse Ox 96% ; Weight 74.84 kg; Height 5 ft. ll1 7 in. (170.18 cm); Pain 10/10; 15:26 BP 155 / 81; Pulse 80; Resp 16; Temp 98.6; Pain 1/10; cb5 11:13 Body Mass Index 25.84 (74.84 kg, 170.18 cm) ll1 ED Course: 10:52 Patient arrived in ED. as 11:15 Triage completed. ll1 11:16 Arm band placed on. ll1 12:21 Patient placed in an exam room, on a stretcher. cb5 12:26 Villa Byrd MD is Attending Physician. rn 12:33 Lisa Miller, CATY is Primary Nurse. cb5 12:44 No provider procedures requiring assistance completed. cb5 12:45 Patient has correct armband on for positive identification. Bed in low position. Call cb5 light in reach. Side rails up X 1. 13:35 Blood Culture Adult (2) Sent. cb5 13:35 Procalcitonin Sent. cb5 13:35 Basic Metabolic Panel Sent. cb5 13:35 CBC with Diff Sent. cb5 15:26 IV discontinued. cb5 Administered Medications: 13:39 Drug: NS 0.9% 1000 ml Route: IV; Rate: 1000 ml; Site: right hand; cb5 13:40 Drug: Tylenol 650 mg Route: PO; cb5 15:05 Drug: morphine 4 mg Route: IVP; Site: left hand; cb5 Outcome: 15:13 Discharge ordered by . rn 15:26 Discharged to home ambulatory, with family. cb5 15:26 Condition: stable 15:26 Discharge instructions given to patient. 15:27 Patient left the ED. cb5 Signatures: Ada Marley Roman, MD MD rn Mikhail Otero RN RN ll1 Lisa Miller RN RN cb5
[2021-04-22 15:34] LABS: Urine Bacteria <20 /HPF (<20); Urine Mucus 2+ /HPF (NONE SEEN); Urine RBC <5 /HPF (NONE SEEN)
[2021-04-22 16:40] VITALS: O2SAT 96
[2021-04-22 16:41] VITALS: BP 155/81; TEMP 98.6
[2021-04-29 11:29] LABS: Urine Blood Negative (Negative); Urine Glucose Trace (Negative); Urine Protein Negative (Negative); Urine Specific Gravity >=1.030 (1.005-1.030); Urine pH 6.5 (5.0-7.0)
== END 2021-04-22 15:27 | disposition home or self-care (01) ==
LOC: ER 10:51
DX: R10.9 Unspecified abdominal pain (principal); R30.0 Dysuria; F17.210 Nicotine dependence, cigarettes, uncomplicated; I10 Essential (primary) hypertension; Z88.8 Allergy status to other drugs, medicaments and biological substances
CPT/HCPCS: 87040 ×2; 85025; 80048; 36415; 81015; 84145; 96374; 99283; J7030; 81003

== ENCOUNTER 2021-04-25 01:30 | Observation (INO) | payer OTHER ==
--- OUTSIDE RECORDS SUMMARY | 2021-04-25 01:33 | XMS REPORT | Continuity of Care Document ---
:1960 Author Organization [facility] t Address [address] [place] [address] Care Team Providers Name Role Phone Sharpless Primary Care Physician RADHA SIMPSON Attending Clinician Unavailable RADHA SIMPSON Attending Clinician Unavailable Doctor Unassigned, Name Attending Clinician Unavailable RAGHU Attending Clinician Unavailable Nazanin CLARK A Attending Clinician Payers Payer Name Policy Type Policy Number Effective Date Expiration Date S [facility] STAR [id number] 2017 00:00:00 PLUS Problems This patient has no known problems. Allergies, Adverse Reactions, Alerts Allergy Allergy Status Severity Reaction(s) Onset Inactive Treating Comm ents Source Name Type Date Date Clinician NITRO DRUG Active Other-Cmnt 2019-0 Univer s TRANSDER 07-27 ity of MAL 00:00: [address] [place] ACETAMIN DRUG Active Other-Cmnt 2019-0 Univ ers OPHEN INGREDI 07-27 ity of 00:00: [address] Social History Social Habit Start Date Stop Date Quantity Comments Source Sex Assigned At [facility] Alcohol intake 2016-05-01 2016-05-01 Current [facility] 00:00:00 00:00:00 non-drinker of Medical Ce nter alcohol (finding) Smoking Status Start Date Stop Date Source Current every day smoker 2016-05-01 00:00:00 [facility] Medications Ordered Filled Start Stop Current Ordering Indication Dosage Frequency Signature Comments Components Source Medication Medication Date Date Medication? Clinician (SIG) Name Name OXcarbazepi Yes 600mg [id number] Take [address] ne 2-23 [id number] [facility] (TRILEPTAL) 10:23: 3D [...] Department ID 2020-08-03 2020-08-03 Outpatient MATT VÁSQUEZ [facility] [id number] Univers 10:00:00 10:00:00 MATT SIMPSON [id number] [facility] 2020-08-03 2020-08-03 Outpatient MATT VÁSQUEZ [facility] [id number] Univers 10:00:00 10:00:00 MATT SIMPSON [facility] 2020-07-25 2020-07-25 Orders Doctor ABE [id number] 00:00:00 00:00:00 Only Unassigned, BK [id number] [facility] [id number] 2019-09-26 2019-09-26 Outpatient Bertin KRISHNAMURTHY [facility] [id number] Univers 16:00:00 16:00:00 WALLY [facility] 2019-09-26 2019-09-26 [facility] [id number] Univers 16:00:00 16:00:00 WALLY yeager [facility] 2018-10-21 2018-10-21 Telephone [facility] [id number] 00:00:00 00:00:00 Natacha Nguyen [id number] Ade [id number] [facility] [id number] [facility] 204 [facility] Results This patient has no known results.
[2021-04-25] MEDS ORDERED: ONDANSETRON 4 MG/2 ML VIAL ONE (02:01)
[2021-04-25] MEDS ORDERED: MORPHINE 4 MG/ML SYR ONE ×2 (02:01→03:57)
[2021-04-25] MEDS ORDERED: CEFTRIAXONE 1000 MG/VIAL ONE (02:02)
[2021-04-25] MEDS ORDERED: KETOROLAC 30 MG/ML INJ ONE (02:02)
[2021-04-25] MEDS ORDERED: NA CHLORIDE 0.9% 1,000 ML ONE (02:02)
[2021-04-25 02:16] LABS: Urine Blood Negative (Negative); Urine Glucose Negative (Negative); Urine Protein Negative (Negative); Urine Specific Gravity >=1.030 (1.005-1.030); Urine pH 5.5 (5.0-7.0)
[2021-04-25 02:50] LABS: Absolute Lymphocytes (CBC) 2.3 K/uL (0.7-4.9); Lymphocytes % 35.1 % (15.3-44.8); RBC Red Blood Cell Count 3.95 M/uL (3.86-4.86)
[2021-04-25 02:58] LABS: ALT/SGPT 60 U/L (12-78); AST/SGOT 25 U/L (15-37); Albumin 3.5 g/dL (3.4-5.0); Alkaline Phosphatase 119 U/L (45-117); BUN Blood Urea Nitrogen 12 mg/dL (7-18); Bicarbonate 26 mmol/L (21-32); Bilirubin Direct < 0.1 mg/dL (0-0.2); Bilirubin Total 0.2 mg/dL (0.2-1.0); Glucose Level 158 mg/dL (74-106); Lipase 103 U/L (73-393); Protein, Total 7.2 g/dL (6.4-8.2); Sodium Level 137 mmol/L (136-145)
--- NOTE | 2021-04-25 04:42 | EDPHYS ---
Physician Documentation [facility] Name: Jaimie Amanda Age: 60 yrs Sex: Female : 1960 Arrival Date: 04/25/2021 Time: 01:36 Bed 5 Private MD: Diego Nascimento HPI: 04/25 02:11 This 60 yrs old Female presents to ER via Ambulatory with complaints of Groin hannah Pain, Urinary Problem. 02:11 The patient presents with abdominal pain in the lower abdomen. Onset: The hannah symptoms/episode began/occurred 3 day(s) ago. The patient complains of pain in the right mid back and right low back. The pain does not radiate. Onset: The symptoms/episode began/occurred 4 day(s) ago. Modifying factors: The symptoms are alleviated by nothing. the symptoms are aggravated by nothing. Associated signs and symptoms: The patient has no apparent associated signs or symptoms. The symptoms radiate to the right flank. Associated signs and symptoms: none. Modifying factors: The symptoms are alleviated by nothing, the symptoms are aggravated by nothing. Historical: - Home Meds: 01:44 losartan 50 mg oral tab [Active]; tw - PMHx: 01:44 Anxiety; diabetes mellitus; Hypertensive disorder; Hypothyroidism; tw - PSHx: 01:44 Thyroidectomy; tw - Immunization history:: Flu vaccine is up to date. - Social history:: Smoking status: Patient reports the use of cigarette tobacco products, smokes one-half pack cigarettes per day. - Family history:: not pertinent. ROS: 02:11 Constitutional: Negative for fever, chills, and weight loss, Eyes: Negative for injury, hannah pain, redness, and discharge, ENT: Negative for injury, pain, and discharge, Neck: Negative for injury, pain, and swelling, Cardiovascular: Negative for chest pain, palpitations, and edema, Respiratory: Negative for shortness of breath, cough, wheezing, and pleuritic chest pain, Back: Negative for injury and pain, : Negative for injury, bleeding, discharge, and swelling, MS/Extremity: Negative for injury and deformity, Skin: Negative for injury, rash, and discoloration, Neuro: Negative for headache, weakness, numbness, tingling, and seizure, Psych: Negative for depression, anxiety, suicide ideation, homicidal ideation, and hallucinations, Allergy/Immunology: Negative for hives, rash, and allergies, Endocrine: Negative for neck swelling, polydipsia, polyuria, polyphagia, and marked weight changes, Hematologic/Lymphatic: Negative for swollen nodes, abnormal bleeding, and unusual bruising. 02:11 Abdomen/GI: Positive for abdominal pain, of the posterior aspect of right lateral abdomen, anterior aspect of right lateral abdomen and right lower quadrant. Exam: 02:11 Constitutional: This is a well developed, well nourished patient who is awake, alert, hannah and in no acute distress. Head/Face: Normocephalic, atraumatic. Eyes: Pupils equal round and reactive to light, extra-ocular motions intact. Lids and lashes normal. Conjunctiva and sclera are non-icteric and not injected. Cornea within normal limits. Periorbital areas with no swelling, redness, or edema. ENT: Nares patent. No nasal discharge, no septal abnormalities noted. Tympanic membranes are normal and external auditory canals are clear. Oropharynx with no redness, swelling, or masses, exudates, or evidence of obstruction, uvula midline. Mucous membranes moist. Neck: Trachea midline, no thyromegaly or masses palpated, and no cervical lymphadenopathy. Supple, full range of motion without nuchal rigidity, or vertebral point tenderness. No Meningismus. Chest/axilla: Normal chest wall appearance and motion. Nontender with no deformity. No lesions are appreciated. Cardiovascular: Regular rate and rhythm with a normal S1 and S2. No gallops, murmurs, or rubs. Normal PMI, no JVD. No pulse deficits. Respiratory: Lungs have equal breath sounds bilaterally, clear to auscultation and percussion. No rales, rhonchi or wheezes noted. No increased work of breathing, no retractions or nasal flaring. Female : Normal external genitalia. Skin: Warm, dry with normal turgor. Normal color with no rashes, no lesions, and no evidence of cellulitis. MS/ Extremity: Pulses equal, no cyanosis. Neurovascular intact. Full, normal range of motion. Neuro: Awake and alert, GCS 15, oriented to person, place, time, and situation. Cranial nerves II-XII grossly intact. Motor strength 5/5 in all extremities. Sensory grossly intact. Cerebellar exam normal. Normal gait. Psych: Awake, alert, with orientation to person, place and time. Behavior, mood, and affect are within normal limits. 02:11 Abdomen/GI: Inspection: distension, that is mild, Bowel sounds: normal, active, Palpation: mild abdominal tenderness, in the posterior aspect of right lateral abdomen, anterior aspect of right lateral abdomen and right lower quadrant, Liver: no appreciated palpable abnormalities, Hernia: not appreciated. Vital Signs: 01:42 BP 152 / 89; Pulse 88; Resp 18; Temp 97.8; Pulse Ox 99% on R/A; Weight 74.84 kg; Height tw5 5 ft. 7 in. (170.18 cm); Pain 10/10; 02:30 BP 170 / 84; Pulse 80; Resp 18 S; Pulse Ox 98% on R/A; Pain 10/10; al4 03:30 BP 153 / 84; Pulse 74; Resp 18; Pulse Ox 97% on R/A; mk 04:30 BP 154 / 76; Pulse 81; Resp 18; Temp 98.1(O); Pulse Ox 98% ; mk 01:42 Body Mass Index 25.84 (74.84 kg, 170.18 cm) tw5 [place] Coma Score: 03:30 Eye Response: spontaneous(4). Verbal Response: oriented(5). Motor Response: obeys mk commands(6). Total: 15. 04:30 Eye Response: spontaneous(4). Verbal Response: oriented(5). Motor Response: obeys mk commands(6). Total: 15. MDM: 01:52 Patient medically screened. hannah 02:15 Differential diagnosis: nephrolithiasis, pyelonephritis, diverticulitis, pancreatitis, hannah Cholelithiasis, non-specific abd pain, pancreatitis, Pyelonephritis, Ureterolithiasis, urinary tract infection. Data reviewed: vital signs, nurses notes, lab test result(s), radiologic studies, CT scan. Data interpreted: monitoring tech: rate is 88 beats/min, rhythm is regular, Pulse oximetry: on room air is 99 %. Test interpretation: by ED physician or midlevel provider:. Counseling: I had a detailed discussion with the patient and/or guardian regarding: the historical points, exam findings, and any diagnostic results supporting the discharge/admit diagnosis, lab results, radiology results, the need for outpatient follow up. 04/25 01:51 Order name: Basic Metabolic Panel [facility] 04/25 01:51 Order name: CBC with Diff; Complete Time: 03:11 [facility] 04/25 01:51 Order name: Hepatic Function; Complete Time: 03:09 [facility] 04/25 01:51 Order name: Lipase; Complete Time: 03:09 [facility] 04/25 01:51 Order name: Urine Culture [facility] 04/25 01:52 Order name: Basic Metabolic Panel; Complete Time: 03:09 [facility] 04/25 02:15 Order name: Urine Dipstick-Ancillary [facility] 04/25 02:43 Order name: CT Abd/Pelvis - IV Contrast Only [facility] 04/25 01:51 Order name: IV Saline Lock; Complete Time: 02:24 [facility] 04/25 01:51 Order name: Labs collected and sent; Complete Time: 02:25 [facility] 04/25 01:51 Order name: Urine Dipstick-Ancillary (obtain specimen); Complete Time: 02:15 [facility] Administered Medications: 02:49 Drug: NS 0.9% 1000 ml Route: IV; Rate: 1 bolus; Site: right antecubital; al4 04:00 Follow up: Response: No adverse reaction; IV Status: Completed infusion; IV Intake: mk 1000ml 02:49 Drug: morphine 4 mg Route: IVP; Site: right antecubital; al4 04:00 Follow up: Response: No adverse reaction mk 02:49 Drug: Zofran (Ondansetron) 4 mg Route: IVP; Site: right antecubital; al4 04:00 Follow up: Response: No adverse reaction mk 02:49 Drug: Rocephin (cefTRIAXone) 1 grams Route: IV; Rate: per protocol; Site: right al4 antecubital; 06:37 Follow up: Response: No adverse reaction; IV Status: Completed infusion; IV Intake: mk 100ml 02:49 Drug: Ketorolac 30 mg Route: IVP; Site: right antecubital; al4 04:00 Follow up: Response: No adverse reaction mk 04:01 Drug: morphine 4 mg Route: IVP; Site: right antecubital; mk 04:30 Follow up: Response: No adverse reaction mk 06:37 Follow up: Response: Pain is decreased mk Disposition Summary: 04/25/21 04:42 Discharge Ordered Location: Home hannah Problem: new hannah Symptoms: have improved hannah Condition: Stable hannah Diagnosis - Abdominal pain, unspecified - right Flank Pain hannah - Abdominal tenderness hannah Followup: hannah - With: Private Physician - When: 2 - 3 days - Reason: Recheck today's complaints, Continuance of care, Re-evaluation by your physician Followup: hannah - With: - When: 2 - 3 days - Reason: Recheck today's complaints, Re-evaluation by your physician Discharge Instructions: - Discharge Summary Sheet hannah - Abdominal Pain, Adult hannah - Flank Pain, Adult hannah - Abdominal Pain, Adult, [id number] hannah - Flank Pain, Adult, [id number] [facility] Forms: - Medication Reconciliation Form [facility] - Thank You Letter hannah - Antibiotic Education [facility] - Prescription Opioid Use [facility] Prescriptions: - Diclofenac Sodium 75 mg Oral Tablet Sustained Release - take 1 tablet by ORAL route 2 times per day; 30 tablet; Refills: 0, Product [facility] Selection Permitted - dicyclomine 20 mg Oral Tablet - take 1 tablet by ORAL route 4 times per day; 28 tablet; Refills: 0, Product [facility] Selection Permitted - Tylenol-Codeine #3 300 mg-30 mg Oral - take 2 tablet by ORAL route every 6 hours; 15 tablet; Refills: 0, Product [facility] Selection Permitted Signatures: Dispatcher [employer] Diego Osorio MD MD cha Wood, Tiffany tw5 Ike Fregoso Madeline, RN RN mk Corrections: (The following items were deleted from the chart) 01:45 01:44 Allergies: Nitroglycerin; "Bottoms BP out"; tw tw 02:45 01:52 Stone Protocol+CT.RAD.BRZ ordered. [facility] EDMS
--- NOTE | 2021-04-25 04:42 | ER ---
Nurse's Notes [facility] Name: Jaimie Amanda Age: 60 yrs Sex: Female : 1960 Arrival Date: 04/25/2021 Time: 01:36 Bed 5 Private MD: Diagnosis: Abdominal pain, unspecified-right Flank Pain;Abdominal tenderness Presentation: 04/25 01:42 Chief complaint: Patient states: "The same thing as the other day. I cannot urinate tw5 very well and a little blood comes out and a my lower back back hurts.". Coronavirus screen: Vaccine status: Patient reports receiving the 2nd dose of the covid vaccine. doesn't know brand. Ebola Screen: Patient negative for fever greater than or equal to 101.5 degrees Fahrenheit, and additional compatible Ebola Virus Disease symptoms Patient denies exposure to infectious person. Patient denies travel to an Ebola-affected area in the 21 days before illness onset. Initial Sepsis Screen: Does the patient meet any 2 criteria? No. Patient's initial sepsis screen is negative. Does the patient have a suspected source of infection? No. Patient's initial sepsis screen is negative. Initial Sepsis Screen: Does the patient have a suspected source of infection? Yes: Dysuria/Frequency/Urgency/UTI. Risk Assessment: Do you want to hurt yourself or someone else? Patient reports no desire to harm self or others. Onset of symptoms is unknown. 01:42 Acuity: ZHEN 3 tw5 01:42 Method Of Arrival: Ambulatory tw5 Triage Assessment: 01:44 General: Appears uncomfortable, Behavior is calm, cooperative, appropriate for age. tw5 Pain: Complains of pain in low back area and groin Pain currently is 10 out of 10 on a pain scale. Historical: - Home Meds: 01:44 losartan 50 mg oral tab [Active]; tw5 - PMHx: 01:44 Anxiety; diabetes mellitus; Hypertensive disorder; Hypothyroidism; tw5 - PSHx: 01:44 Thyroidectomy; tw5 - Immunization history:: Flu vaccine is up to date. - Social history:: Smoking status: Patient reports the use of cigarette tobacco products, smokes one-half pack cigarettes per day. - Family history:: not pertinent. Screenin:55 Abuse screen: Denies threats or abuse. Nutritional screening: No deficits noted. mk Tuberculosis screening: No symptoms or risk factors identified. Fall Risk No fall in past 12 months (0 pts). No secondary diagnosis (0 pts). IV access (20 points). Ambulatory Aid- None/Bed Rest/Nurse Assist (0 pts). Gait- Normal/Bed Rest/Wheelchair (0 pts) Mental Status- Oriented to own ability (0 pts). Total Rubio Fall Scale indicates No Risk (0-24 pts). Assessment: 02:51 Reassessment: emesis x 1. al4 02:51 General: Appears in no apparent distress. uncomfortable, Behavior is calm, cooperative, al4 Reports pain in lower abdomen for multiple days and nausea after not being able to eat all day. Pain: Complains of pain in right lower quadrant Pain currently is 10 out of 10 on a pain scale. Neuro: Level of Consciousness is awake, alert, obeys commands, Oriented to person, place, time, situation. Cardiovascular: Capillary refill < 3 seconds Patient's skin is warm and dry. Respiratory: Airway is patent Respiratory effort is even, unlabored, Respiratory pattern is regular, symmetrical. GI: Reports lower abdominal pain, nausea. : Reports burning with urination, inability to void, urgency, urinary frequency, slight blood in urine. EENT: No signs and/or symptoms were reported regarding the EENT system. Derm: No signs and/or symptoms reported regarding the dermatologic system. Musculoskeletal: Range of motion: intact in all extremities. 03:30 Reassessment: No changes from previously documented assessment. Patient and/or family mk updated on plan of care and expected duration. Pain level reassessed. Patient is alert, oriented x 3, equal unlabored respirations, skin warm/dry/pink. Pain: Complains of pain in right lower quadrant Pain currently is 9 out of 10 on a pain scale. Quality of pain is described as sharp, Pain began gradually, 2-3 days ago. Is lasting more than 1 hour. Alleviated by medications, rest, Aggravated by vomiting. 04:30 Reassessment: Patient and/or family updated on plan of care and expected duration. Pain mk level reassessed. Patient is alert, oriented x 3, equal unlabored respirations, skin warm/dry/pink. Patient states feeling better. Pain: Complains of pain in right lower quadrant Pain currently is 5 out of 10 on a pain scale. Quality of pain is described as sharp, Pain began gradually, 2-3 days ago. Is lasting more than 1 hour. Alleviated by medications. Vital Signs: 01:42 BP 152 / 89; Pulse 88; Resp 18; Temp 97.8; Pulse Ox 99% on R/A; Weight 74.84 kg; Height tw5 5 ft. 7 in. (170.18 cm); Pain 10/10; 02:30 BP 170 / 84; Pulse 80; Resp 18 S; Pulse Ox 98% on R/A; Pain 10/10; al4 03:30 BP 153 / 84; Pulse 74; Resp 18; Pulse Ox 97% on R/A; mk 04:30 BP 154 / 76; Pulse 81; Resp 18; Temp 98.1(O); Pulse Ox 98% ; mk 01:42 Body Mass Index 25.84 (74.84 kg, 170.18 cm) tw5 [place] Coma Score: 03:30 Eye Response: spontaneous(4). Verbal Response: oriented(5). Motor Response: obeys mk commands(6). Total: 15. 04:30 Eye Response: spontaneous(4). Verbal Response: oriented(5). Motor Response: obeys mk commands(6). Total: 15. ED Course: 01:36 Patient arrived in ED. wm 01:44 Triage completed. tw5 01:44 Arm band placed on left wrist. tw5 01:49 Selena Murphy, RN is Primary Nurse. mk 01:52 Diego Ramirez MD is Attending Physician. hannah 02:00 Patient has correct armband on for positive identification. Placed in gown. Bed in low mk position. Call light in reach. Side rails up X 1. 02:15 Urine Culture Sent. al4 02:24 Initial lab(s) drawn, by md, sent to lab. Inserted saline lock: 22 gauge in right lt3 antecubital area, using aseptic technique. 03:30 CT Abd/Pelvis - IV Contrast Only In Process Unspecified. EDMS 03:38 Basic Metabolic Panel Sent. al4 03:52 Urine Dipstick-Ancillary Sent. mk 04:41 Monica Min MD is Referral Physician. hannah 04:55 No provider procedures requiring assistance completed. IV discontinued, intact, mk bleeding controlled, No redness/swelling at site. Pressure dressing applied. Administered Medications: 02:49 Drug: NS 0.9% 1000 ml Route: IV; Rate: 1 bolus; Site: right antecubital; al4 04:00 Follow up: Response: No adverse reaction; IV Status: Completed infusion; IV Intake: mk 1000ml 02:49 Drug: morphine 4 mg Route: IVP; Site: right antecubital; al4 04:00 Follow up: Response: No adverse reaction mk 02:49 Drug: Zofran (Ondansetron) 4 mg Route: IVP; Site: right antecubital; al4 04:00 Follow up: Response: No adverse reaction mk 02:49 Drug: Rocephin (cefTRIAXone) 1 grams Route: IV; Rate: per protocol; Site: right al4 antecubital; 06:37 Follow up: Response: No adverse reaction; IV Status: Completed infusion; IV Intake: mk 100ml 02:49 Drug: Ketorolac 30 mg Route: IVP; Site: right antecubital; al4 04:00 Follow up: Response: No adverse reaction mk 04:01 Drug: morphine 4 mg Route: IVP; Site: right antecubital; mk 04:30 Follow up: Response: No adverse reaction mk 06:37 Follow up: Response: Pain is decreased mk Intake: 04:00 IV: 1000ml; Total: 1000ml. mk 06:37 IV: 100ml; Total: 1100ml. Outcome: 04:42 Discharge ordered by . hannah 04:56 Patient left the ED. mw2 04:56 Discharged to home 04:56 Condition: stable 04:56 Discharge instructions given to patient, Instructed on discharge instructions, follow up and referral plans. Demonstrated understanding of instructions, follow-up care, medications, Prescriptions given X 3. Signatures: Dispatcher [employer] EDDC Diego Ramirez MD MD cha Westbrook, MyKena mw2 Monica Atkins Tiffany tw5 Ike Fregoso4 Guillermina Talbert Madeline, RN RN mk Corrections: (The following items were deleted from the chart) 01:45 01:44 Allergies: Nitroglycerin; "Bottoms BP out"; tw5 tw5
[2021-04-25 05:07] VITALS: BP 154/76; TEMP 98.1; O2SAT 98
--- NOTE | 2021-04-25 10:54 | RAD REPORT ---
EXAM DESCRIPTION: CT - Abdomen Pelvis W Contrast - 04/25/2021 4:46 am CLINICAL HISTORY: 60 years, Female, ABD PAIN COMPARISON: 04/21/2021 TECHNIQUE: Contrast-enhanced images of the abdomen and pelvis were performed utilizing. Millimeters slice thickness at 3 mm interval reconstruction from the lung bases to the ischial tuberosities after the administration IV contrast. In addition multiplanar reformats in the coronal and sagittal plane were obtained and reviewed. This exam was performed according to our departmental dose-optimization protocol, which includes auto mated exposure control, adjustment of the mA and/or kV according to patient size and/or use of iterat mallory reconstruction technique. FINDINGS: The lung bases demonstrate to be clear. The liver demonstrate slight decreased attenuation corresponding to mild fatty infiltration. There is a small hepatic cyst medial segment left hepatic lobe measuring 1.0 cm on image 26 and subcapsular h epatic cysts posterior lateral segment left hepatic lobe measuring approximately 0.9 cm on image 37. The gallbladder, pancreas, spleen and adrenal glands demonstrate to be unremarkable, no focal lesions are noted. The kidneys demonstrate normal uptake of contrast media. No evidence for nephrolithiasis and/or hydro nephrosis. Grossly the unopacified stomach, small bowel and large bowel demonstrate to be within normal limits. There is no evidence for bowel dilatation and/or free air. The appendix is normal. The urinary bladder demonstrate to be unremarkable. The uterus is unremarkable. There are no adnexa l masses. The aorta demonstrate minimal atheromatous plaque formation. There is no retroperitonea l lymphadenopathy. There is no ascites. The appendix demonstrate minimal degenerative disc disease at L5/S1. IMPRESSION: No acute intra-abdominal process. Mild fatty infiltration of the liver with small hepatic cysts. Minimal degenerative disc disease at L5/S1. Electronically signed by: Jackson Carroll MD 04/25/2021 3:48 AM COUNTER STITCHER Due to temporary technical issues with the PACS/Fluency reporting system, reports are being signed by the in house radiologists without review as a courtesy to insure prompt reporting. The interpreting radiologist is fully responsible for the content of the report.
[2021-04-29] MEDS ORDERED: ONDANSETRON 4 MG/2 ML VIAL IV PRN (14:02)
[2021-04-29] MEDS ORDERED: ACETAMINOPHEN 500 MG TAB PO PRN (14:02)
[2021-04-29] MEDS ORDERED: MORPHINE 2 MG/ML SYR IV PRN (14:02)
[2021-04-29] MEDS ORDERED: MORPHINE 4 MG/ML SYR ONE (14:23)
[2021-04-29] MEDS ORDERED: ONDANSETRON 4 MG/2 ML VIAL ONE (14:23)
[2021-04-29] MEDS ORDERED: NA CHLORIDE 0.9% 1,000 ML ONE (14:23)
[2021-04-29] MEDS ORDERED: NA CHLORIDE 0.9% 1,000 ML IV SCH (15:00)
== END 2021-04-29 16:30 | disposition left against medical advice (07) ==
LOC: ER 01:30 → ERHOLD 04-29 14:02
PROVIDERS: ADMIT Hospitalist; ATTEND Hospitalist
DX: R10.9 Unspecified abdominal pain (principal); F41.9 Anxiety disorder, unspecified; E11.9 Type 2 diabetes mellitus without complications; I10 Essential (primary) hypertension; E03.9 Hypothyroidism, unspecified; Z53.29 Procedure and treatment not carried out because of patient's decision for other reasons
CPT/HCPCS: 96365; 87088; 85025; 87086; 80048; 36415; 80076; 81003; 83690; 74177; 96375; 99284; 96366; Q9967; J7030 ×2; J2405 ×2; G0378 ×2

== ENCOUNTER → 2021-04-29 | Emergency (ER) | payer OTHER ==
[~2021-04-29] MED LIST changes: +KETOROLAC 30 MG/ML INJ ONE; +LORAZEPAM 1 MG TABLET ONE; -LORazepam 2 MG/ML VIAL ONE; -MECLIZINE HCL 12.5 MG TAB ONE; +MORPHINE 4 MG/ML SYR ONE; -NA CHLORIDE 0.9% 500 ML ONE; -THIAMINE 200 MG/2 ML INJ ONE; -cloNIDine HCL 0.1 MG TAB ONE
--- OUTSIDE RECORDS SUMMARY | 2021-04-29 07:53 | XMS REPORT | Continuity of Care Document ---
:1960 Author Organization [facility] t Address [address] [place] [address] Care Team Providers Name Role Phone Sharpless Primary Care Physician RADHA SIMPSON Attending Clinician Unavailable RADHA SIMPSON Attending Clinician Unavailable Doctor Unassigned, Name Attending Clinician Unavailable RAGHU Attending Clinician Unavailable Nazanin CLARK A Attending Clinician Payers Payer Name Policy Type Policy Number Effective Date Expiration Date S [facility] STAR [id number] 2017 00:00:00 PLUS Problems This patient has no known problems. Allergies, Adverse Reactions, Alerts Allergy Allergy Status Severity Reaction(s) Onset Inactive Treating Comm ents Source Name Type Date Date Clinician NITRO DRUG Active Other-Cmnt 2019-0 Univer s TRANSDER 07-27 ity of MAL 00:00: [address] [place] ACETAMIN DRUG Active Other-Cmnt 2019-0 Univ ers OPHEN INGREDI 07-27 ity of 00:00: [address] Social History Social Habit Start Date Stop Date Quantity Comments Source Sex Assigned At [facility] Alcohol intake 2016-05-01 2016-05-[address] [facility] 00:00:00 00:00:00 non-drinker of Medical nter alcohol (finding) Smoking Status Start Date Stop Date Source Current every day smoker 2016-05-01 00:00:00 [facility] Medications Ordered Filled Start Stop Current Ordering Indication Dosage Frequency Signature Comments Components Source Medication Medication Date Date Medication? Clinician (SIG) Name Name OXcarbazepi Yes 600mg [id number] Take [address] ne 2-23 [id number] [facility] by [facility] (TRILEPTAL) 10:23: 3D [...] Department ID 2020-08-03 2020-08-03 Outpatient MATT VÁSQUEZ [facility] [id number] Univers 10:00:00 10:00:00 MATT SIMPSON [id number] [facility] 2020-08-03 2020-08-03 Outpatient MATT VÁSQUEZ [facility] [id number] Univers 10:00:00 10:00:00 MATT SIMPSON [facility] 2020-07-25 2020-07-25 Orders Doctor ABE [id number] 00:00:00 00:00:00 Only Unassigned, BK [id number] Iaeger [facility] [id number] 2019-09-26 2019-09-26 Outpatient Bertin KRISHNAMURTHY [facility] [id number] Univers 16:00:00 16:00:00 WALLY [facility] 2019-09-26 2019-09-26 [facility] [id number] Univers 16:00:00 16:00:00 WALLY yeager [facility] 2018-10-21 2018-10-21 Telephone [facility], [facility] [id number] 00:00:00 00:00:00 Natacha Nguyen [id number] Ade [id number] [id number] [address] [facility] Results This patient has no known results.
[2021-04-29 09:17] LABS: Absolute Lymphocytes (CBC) 1.3 K/uL (0.7-4.9); Hematocrit 39.4 % (36.0-45.0); Lymphocytes % 25.1 % (15.3-44.8); RBC Red Blood Cell Count 4.32 M/uL (3.86-4.86)
[2021-04-29 09:33] LABS: ALT/SGPT 44 U/L (12-78); AST/SGOT 35 U/L (15-37); Albumin 3.7 g/dL (3.4-5.0); Alkaline Phosphatase 102 U/L (45-117); BUN Blood Urea Nitrogen 12 mg/dL (7-18); Bicarbonate 25 mmol/L (21-32); Bilirubin Direct < 0.1 mg/dL (0-0.2); Bilirubin Total 0.3 mg/dL (0.2-1.0); Glucose Level 174 mg/dL (74-106); Lipase 39 U/L (73-393); Potassium 4.1 mmol/L (3.5-5.1); Protein, Total 7.7 g/dL (6.4-8.2); Sodium Level 124 mmol/L (136-145)
--- NOTE | 2021-04-29 10:24 | RAD REPORT ---
EXAM DESCRIPTION: CT - Abdomen Pelvis W Contrast - 04/29/2021 9:46 am CLINICAL HISTORY: ABD PAIN COMPARISON: Abdomen Pelvis W Contrast dated 04/25/2021; Abdomen Pelvis W Contrast dated 04/21/2021 TECHNIQUE: Biphasic, helical CT imaging of the abdomen and pelvis was performed following 100 ml non -ionic IV contrast. No oral contrast administered. All CT scans are performed using dose optimization technique as appropriate and may include automated exposure control or mA/KV adjustment according to patient size. FINDINGS: No suspicious findings in the lung bases. The liver, spleen, and pancreas show no suspicious findings. Gallbladder and biliary tree are also wi thout suspicious finding. Gallstones can be occult on CT imaging. Symmetric renal function is seen with no hydronephrosis or suspicious renal mass. No pyelonephritis o r acute parenchymal process. No bladder abnormalities. No adrenal abnormalities. No uterine, ovarian or adnexal abnormality. No gastric dilatation or gastric wall thickening. Minimal hiatal hernia is present. No dilated small bowel loop. There is a single loop of mildly prominent small bowel is nonspecific. A mild gastroenter itis cannot be excluded. Moderate stool volume throughout nondilated colon. Appendix is unremarkable. No free air, free fluid or inflammatory stranding. No hernia, mass or bulky lymphadenopathy. No suspicious bony findings. Disc and bone degenerative changes match comparison. IMPRESSION: Contrast enhanced CT abdomen and pelvis showing no acute or emergent finding. No significant change from prior imaging.
--- NOTE | 2021-04-29 10:36 | ER ---
Nurse's Notes [facility] Name: Jaimie Amanda Age: 60 yrs Sex: Female : 1960 Arrival Date: 04/29/2021 Time: 07:55 Bed 23 Private MD: Diagnosis: Abdominal pain, Generalized;Hyponatremia Presentation: 04/29 08:04 Chief complaint: Patient states: R sided abdominal pain, n/v, states, " I was seen here ph a few days ago but now the pain is worse." Denies fever or diarrhea, also denies urinary symptoms. Coronavirus screen: Vaccine status: Patient reports receiving the 2nd dose of the covid vaccine. At this time, the client does not indicate any symptoms associated with coronavirus-19. Ebola Screen: No symptoms or risks identified at this time. Initial Sepsis Screen: Does the patient meet any 2 criteria? No. Patient's initial sepsis screen is negative. Does the patient have a suspected source of infection? No. Patient's initial sepsis screen is negative. Risk Assessment: Do you want to hurt yourself or someone else? Patient reports no desire to harm self or others. Onset of symptoms was April 29, 2021. 08:04 Method Of Arrival: Ambulatory ph 08:04 Acuity: ZHEN 3 Triage Assessment: 08:06 General: Appears in no apparent distress. comfortable, Behavior is calm, cooperative, ph Reports chills for fever for. Pain: Complains of pain in right lower quadrant. Neuro: Level of Consciousness is awake, alert, obeys commands, Oriented to person, place, time, situation. GI: Reports nausea, vomiting. Historical: - Allergies: 08:05 Nitroglycerin; ph - Home Meds: 08:05 losartan 50 mg Oral tab [Active]; ph - PMHx: 08:05 Anxiety; diabetes mellitus; Hypertensive disorder; Hypothyroidism; ph - PSHx: 08:05 Thyroidectomy; ph - Immunization history:: Client reports receiving the 2nd dose of the Covid vaccine. - Social history:: Smoking status: Patient reports the use of cigarette tobacco products, smokes one-half pack cigarettes per day. Screenin:04 Abuse screen: Denies threats or abuse. Nutritional screening: No deficits noted. vg1 Tuberculosis screening: No symptoms or risk factors identified. Fall Risk No fall in past 12 months (0 pts). No secondary diagnosis (0 pts). IV access (20 points). Ambulatory Aid- None/Bed Rest/Nurse Assist (0 pts). Gait- Normal/Bed Rest/Wheelchair (0 pts) Mental Status- Oriented to own ability (0 pts). Total Rubio Fall Scale indicates No Risk (0-24 pts). Assessment: 08:50 General: Appears in no apparent distress. uncomfortable, Behavior is calm, cooperative. vg1 Pain: Complains of pain in right lower quadrant Pain currently is 10 out of 10 on a pain scale. Pain began 2-3 days ago. Neuro: Level of Consciousness is awake, alert, obeys commands, Oriented to person, place, time, situation. Cardiovascular: Patient's skin is warm and dry. Respiratory: Airway is patent Respiratory effort is even, unlabored. GI: Abdomen is round non-distended, Bowel sounds present X 4 quads. Abdomen is tender to palpation in right lower quadrant Reports nausea, vomiting. : No signs and/or symptoms were reported regarding the genitourinary system. EENT: No signs and/or symptoms were reported regarding the EENT system. Derm: Skin is intact, is healthy with good turgor. Musculoskeletal: Circulation, motion, and sensation intact. 09:50 Reassessment: Patient appears in no apparent distress at this time. No changes from vg1 previously documented assessment. Patient and/or family updated on plan of care and expected duration. Pain level reassessed. Patient is alert, oriented x 3, equal unlabored respirations, skin warm/dry/pink. 11:00 Reassessment: Patient appears in no apparent distress at this time. No changes from vg1 previously documented assessment. Patient and/or family updated on plan of care and expected duration. Pain level reassessed. Patient is alert, oriented x 3, equal unlabored respirations, skin warm/dry/pink. 12:00 Reassessment: Patient appears in no apparent distress at this time. No changes from vg1 previously documented assessment. Patient and/or family updated on plan of care and expected duration. Pain level reassessed. Patient is alert, oriented x 3, equal unlabored respirations, skin warm/dry/pink. 13:00 Reassessment: Patient appears in no apparent distress at this time. No changes from vg1 previously documented assessment. Patient and/or family updated on plan of care and expected duration. Pain level reassessed. Patient is alert, oriented x 3, equal unlabored respirations, skin warm/dry/pink. 14:00 Reassessment: Patient appears in no apparent distress at this time. No changes from vg1 previously documented assessment. Patient and/or family updated on plan of care and expected duration. Pain level reassessed. Patient is alert, oriented x 3, equal unlabored respirations, skin warm/dry/pink. 15:00 Reassessment: Patient appears in no apparent distress at this time. No changes from vg1 previously documented assessment. Patient and/or family updated on plan of care and expected duration. Pain level reassessed. Patient is alert, oriented x 3, equal unlabored respirations, skin warm/dry/pink. 16:15 Reassessment: Spoke with Dr Gustafson of pt wanting to leave AMA; educated pt reasons to vg1 stay and be medically treated; pt insisted on leaving, stated mother was in the lobby waiting. Dr Gustafson notified and is aware of pt leaving ED. 16:24 Reassessment: Patient appears in no apparent distress at this time. No changes from vg1 previously documented assessment. Patient and/or family updated on plan of care and expected duration. Pain level reassessed. Patient is alert, oriented x 3, equal unlabored respirations, skin warm/dry/pink. pt left ED. Vital Signs: 08:04 BP 139 / 87; Pulse 92; Resp 18; Temp 97.0(TE); Pulse Ox 96% on R/A; Weight 74.84 kg; ph Height 5 ft. 7 in. (170.18 cm); 08:50 BP 139 / 79; Pulse 77; Resp 17; Pulse Ox 96% on R/A; vg1 09:50 BP 154 / 70; Pulse 68; Resp 17; Pulse Ox 96% on R/A; vg1 10:30 BP 156 / 69; Pulse 65; Resp 15; Pulse Ox 95% on R/A; vg1 08:04 Body Mass Index 25.84 (74.84 kg, 170.18 cm) ph ED Course: 07:55 Patient arrived in ED. mr 08:03 Emma Hussein [facility]-C [facility]. kb 08:03 Diego Ramirez MD is Attending Physician. kb 08:05 Triage completed. ph 08:06 Arm band placed on Patient placed in an exam room, on a stretcher. ph 08:37 Geneva Ramirez, RN is Primary Nurse. vg1 09:00 Initial lab(s) drawn, by me, sent to lab. Inserted saline lock: 22 gauge in left vg1 forearm, using aseptic technique. Blood collected. 09:04 Patient has correct armband on for positive identification. Bed in low position. Call vg1 light in reach. Side rails up X 1. 09:46 CT Abd/Pelvis - IV Contrast Only In Process Unspecified. EDMS 10:35 Joseph Gustafson MD is Hospitalizing Provider. kb 10:53 COVID swab sent to lab. vg1 16:28 No provider procedures requiring assistance completed. IV discontinued, intact, vg1 bleeding controlled, No redness/swelling at site. Pressure dressing applied. Administered Medications: 08:55 Drug: Zofran (Ondansetron) 4 mg Route: IVP; Site: left forearm; vg1 09:35 Follow up: Response: No adverse reaction; Marked relief of symptoms vg1 08:55 Drug: NS 0.9% 1000 ml Route: IV; Rate: 1000 ml; Site: left forearm; vg1 10:00 Follow up: IV Status: Completed infusion; IV Intake: 1000ml vg1 08:58 Drug: Ketorolac 30 mg Route: IVP; Site: left forearm; vg1 09:20 Follow up: Response: No adverse reaction; No change in condition vg1 09:34 Drug: morphine 4 mg Route: IVP; Site: left forearm; vg1 10:00 Follow up: Response: No adverse reaction; No change in condition vg1 10:50 Drug: Ativan (LORazepam) 1 mg Route: PO; vg1 12:00 Follow up: Response: No adverse reaction; No change in condition vg1 14:20 Drug: Zofran (Ondansetron) 4 mg Route: IVP; Site: left forearm; vg1 15:20 Follow up: Response: No adverse reaction; Marked relief of symptoms vg1 14:20 Drug: NS 0.9% 1000 ml Route: IV; Rate: 100 ml/hr; Site: left forearm; vg1 16:29 Follow up: IV Status: Order to discontinue infusion; IV Intake: 300ml vg1 14:22 Drug: morphine 4 mg Route: IVP; Site: left forearm; vg1 15:20 Follow up: Response: No adverse reaction; Marked relief of symptoms vg1 Intake: 10:00 IV: 1000ml; Total: 1000ml. vg1 16:29 IV: 300ml; Total: 1300ml. vg1 Outcome: 10:36 Decision to Hospitalize by Provider. kb 16:28 Condition: good vg1 16:29 Patient left the ED. vg1 Signatures: Dispatcher [employer] EDMS Emma Hussein, EDUARDO-Esther [place] Radha Messina Shruthi Donohue, RN RN Geneva Ramirez, RN RN vg1 Corrections: (The following items were deleted from the chart) 16:25 16:22 Reassessment: Spoke with Dr Gustafson of pt wanting to leave AMA; educated pt reasons vg1 to stay and be medically treated; pt insisted on leaving, stated mother was in the lobby waiting. Dr Gustafson notified and is aware of pt leaving ED. vg1
--- NOTE | 2021-04-29 10:36 | EDPHYS ---
Physician Documentation [facility] Name: Jaimie Amanda Age: 60 yrs Sex: Female : 1960 Arrival Date: 04/29/2021 Time: 07:55 Bed 23 Private MD: COSTA Physician Diego Ramirez HPI: 04/29 09:49 This 60 yrs old Female presents to ER via Ambulatory with complaints of Abdominal Pain. kb 09:49 The patient presents with abdominal pain in the right upper quadrant. Onset: The kb symptoms/episode began/occurred last month. The symptoms do not radiate. Associated signs and symptoms: Pertinent positives: nausea and vomiting. The symptoms are described as constant. Modifying factors: The symptoms are alleviated by nothing, the symptoms are aggravated by nothing. Severity of pain: At its worst the pain was moderate in the emergency department the pain is unchanged. The patient has not experienced similar symptoms in the past. The patient has not recently seen a physician. Historical: - Allergies: 08:05 Nitroglycerin; ph - Home Meds: 08:05 losartan 50 mg Oral tab [Active]; ph - PMHx: 08:05 Anxiety; diabetes mellitus; Hypertensive disorder; Hypothyroidism; ph - PSHx: 08:05 Thyroidectomy; ph - Immunization history:: Client reports receiving the 2nd dose of the Covid vaccine. - Social history:: Smoking status: Patient reports the use of cigarette tobacco products, smokes one-half pack cigarettes per day. ROS: 09:48 Constitutional: Negative for fever, chills, and weight loss. kb 09:48 Abdomen/GI: Positive for abdominal pain, nausea, Negative for vomiting, diarrhea. 09:48 All other systems are negative. Exam: 09:49 Constitutional: This is a well developed, well nourished patient who is awake, alert, kb and in no acute distress. Head/Face: Normocephalic, atraumatic. ENT: Moist Mucous membranes Cardiovascular: Regular rate and rhythm with a normal S1 and S2. No gallops, murmurs, or rubs. No pulse deficits. Respiratory: Respirations even and unlabored. No increased work of breathing. Talking in full sentences Skin: Warm, dry with normal turgor. Normal color. MS/ Extremity: Pulses equal, no cyanosis. Neurovascular intact. Full, normal range of motion. Neuro: Awake and alert, GCS 15, oriented to person, place, time, and situation. Moves all extremities. Normal gait. Psych: Awake, alert, with orientation to person, place and time. Behavior, mood, and affect are within normal limits. 09:49 Abdomen/GI: Inspection: abdomen appears normal, Bowel sounds: normal, Palpation: soft, in all quadrants, moderate abdominal tenderness, in the right upper quadrant. Vital Signs: 08:04 BP 139 / 87; Pulse 92; Resp 18; Temp 97.0(TE); Pulse Ox 96% on R/A; Weight 74.84 kg; ph Height 5 ft. 7 in. (170.18 cm); 08:50 BP 139 / 79; Pulse 77; Resp 17; Pulse Ox 96% on R/A; vg1 09:50 BP 154 / 70; Pulse 68; Resp 17; Pulse Ox 96% on R/A; vg1 10:30 BP 156 / 69; Pulse 65; Resp 15; Pulse Ox 95% on R/A; vg1 08:04 Body Mass Index 25.84 (74.84 kg, 170.18 cm) ph MDM: 08:03 Patient medically screened. 09:49 Data reviewed: vital signs, nurses notes. Data interpreted: Pulse oximetry: on room air kb is 96 %. Interpretation: normal. 10:31 Counseling: I had a detailed discussion with the patient and/or guardian regarding: the kb historical points, exam findings, and any diagnostic results supporting the discharge/admit diagnosis, lab results, radiology results, the need for further work-up and treatment in the hospital. 10:35 Physician consultation: Joseph Gustafson MD was contacted at 10:35, regarding admission, kb patient's condition, and will see patient in inpatient room. 04/29 08:07 Order name: Basic Metabolic Panel; Complete Time: 09:34 kb 04/29 08:07 Order name: CBC with Diff; Complete Time: 09:27 kb 04/29 08:07 Order name: Hepatic Function; Complete Time: 09:34 kb 04/29 08:07 Order name: Lipase; Complete Time: 09:34 kb 04/29 09:48 Order name: Osmolality, Serum; Complete Time: 15:40 kb 04/29 09:48 Order name: Urine Osmolality kb 04/29 09:28 Order name: CT Abd/Pelvis - IV Contrast Only; Complete Time: 10:29 kb 04/29 10:46 Order name: COVID 19 CPL (Document "Date of Onset" if Symptomatic) vg1 04/29 10:49 Order name: COVID-19 SARS RT PCR (Document "Date of Onset" if Symptomatic); Complete vg1 Time: 12:25 04/29 15:47 Order name: Urine Dipstick-Ancillary; Complete Time: 15:52 EDMS 04/29 08:07 Order name: IV Saline Lock; Complete Time: 08:59 kb 04/29 08:07 Order name: Labs collected and sent; Complete Time: 08:59 kb Administered Medications: 08:55 Drug: Zofran (Ondansetron) 4 mg Route: IVP; Site: left forearm; vg1 09:35 Follow up: Response: No adverse reaction; Marked relief of symptoms vg1 08:55 Drug: NS 0.9% 1000 ml Route: IV; Rate: 1000 ml; Site: left forearm; vg1 10:00 Follow up: IV Status: Completed infusion; IV Intake: 1000ml vg1 08:58 Drug: Ketorolac 30 mg Route: IVP; Site: left forearm; vg1 09:20 Follow up: Response: No adverse reaction; No change in condition vg1 09:34 Drug: morphine 4 mg Route: IVP; Site: left forearm; vg1 10:00 Follow up: Response: No adverse reaction; No change in condition vg1 10:50 Drug: Ativan (LORazepam) 1 mg Route: PO; vg1 12:00 Follow up: Response: No adverse reaction; No change in condition vg1 14:20 Drug: Zofran (Ondansetron) 4 mg Route: IVP; Site: left forearm; vg1 15:20 Follow up: Response: No adverse reaction; Marked relief of symptoms vg1 14:20 Drug: NS 0.9% 1000 ml Route: IV; Rate: 100 ml/hr; Site: left forearm; vg1 16:29 Follow up: IV Status: Order to discontinue infusion; IV Intake: 300ml vg1 14:22 Drug: morphine 4 mg Route: IVP; Site: left forearm; vg1 15:20 Follow up: Response: No adverse reaction; Marked relief of symptoms vg1 Disposition Summary: 04/29/21 10:36 Hospitalization Ordered Hospitalization Status: Inpatient Admission kb Provider: Joseph Gustafson Condition: Stable kb Problem: new kb Symptoms: are unchanged kb Bed/Room Type: Standard kb Location: [facility] ER HOLD(04/29/21 13:12) Room Assignment: ERHOLD-(04/29/21 13:12) iw Diagnosis - Abdominal pain, Generalized kb - Hyponatremia kb Forms: - Medication Reconciliation Form kb - SBAR form kb Signatures: Dispatcher [employer] EDEmma Weinstein, EDUARDO-C DIRECTOR OF RESPIRATORY THERAPY-Therese Guthrie, RN RN Shruthi Donohue RN RN Geneva Ramirez RN RN vg1 Corrections: (The following items were deleted from the chart) 13:12 10:36 Telemetry/MedSurg (Inpatient) kb iw 13:12 10:36 kb iw
[2021-04-29 15:47] LABS: Urine Blood Trace-intact (Negative); Urine Glucose Negative (Negative); Urine Protein Negative (Negative); Urine Specific Gravity 1.015 (1.005-1.030)
[2021-04-29 17:06] VITALS: TEMP 97
[2021-04-29 17:11] VITALS: BP 156/69; O2SAT 95
== END ==
LOC: ER 07:50
DX: E87.1 Hypo-osmolality and hyponatremia (principal); R11.2 Nausea with vomiting, unspecified; E11.9 Type 2 diabetes mellitus without complications; F17.210 Nicotine dependence, cigarettes, uncomplicated; I10 Essential (primary) hypertension; Z20.822 Contact with and (suspected) exposure to COVID-19; Z88.8 Allergy status to other drugs, medicaments and biological substances
CPT/HCPCS: 96361; 85025; 80048; 36415; 80076; 81003; 83690; 83930; 83935; 74177; 96375; 96374; 99284; U0003; Q9967; J7030; J2405

== ENCOUNTER 2021-04-30 11:40 | Emergency (ER) | payer OTHER ==
--- OUTSIDE RECORDS SUMMARY | 2021-04-30 11:43 | XMS REPORT | Continuity of Care Document ---
:1960 Author Organization [facility] t Address [address] [place] [address] Care Team Providers Name Role Phone Sharpless Primary Care Physician RADHA SIMPSON Attending Clinician Unavailable RADHA SIMPSON Attending Clinician Unavailable Doctor Unassigned, Name Attending Clinician Unavailable RAGHU Attending Clinician Unavailable Nazanin CLARK A Attending Clinician Payers Payer Name Policy Type Policy Number Effective Date Expiration Date S [facility] STAR [id number] 2017 00:00:00 PLUS Problems This patient has no known problems. Allergies, Adverse Reactions, Alerts Allergy Allergy Status Severity Reaction(s) Onset Inactive Treating Comm ents Source Name Type Date Date Clinician NITRO DRUG Active Other-Cmnt 2019-0 Univer s TRANSDER 07-27 ity of MAL 00:00: [address] Branch ACETAMIN DRUG Active Other-Cmnt 2019-0 Univ ers OPHEN INGREDI 07-27 ity of 00:00: [address] Social History Social Habit Start Date Stop Date Quantity Comments Source Sex Assigned At [facility] Alcohol intake 2016-05-01 2016-05-01 Current [facility] 00:00:00 00:00:00 non-drinker of Medical Ce nter alcohol (finding) Smoking Status Start Date Stop Date Source Current every day smoker 2016-05-01 00:00:00 [facility] Medications Ordered Filled Start Stop Current Ordering Indication Dosage Frequency Signature Comments Components Source Medication Medication Date Date Medication? Clinician (SIG) Name Name OXcarbazepi Yes 600mg [id number] Take [address] ne 2-23 [id number] [facility] by [facility] - (TRILEPTAL) 10:23: 3D [...] Department ID 2020-08-03 2020-08-03 Outpatient MATT VÁSQUEZ [facility] [id number] Univers 10:00:00 10:00:00 MATT SIMPSON [id number] [facility] 2020-08-03 2020-08-03 Outpatient MATT VÁSQUEZ [facility] [id number] Univers 10:00:00 10:00:00 MATT SIMPSON [facility] 2020-07-25 2020-07-25 Orders Doctor ABE [id number] 00:00:00 00:00:00 Only Unassigned, BK [id number] [place] [facility] [id number] 2019-09-26 2019-09-26 Outpatient Bertin KRISHNAMURTHY [facility] [id number] Univers 16:00:00 16:00:00 WALLY [facility] 2019-09-26 2019-09-26 [facility] [id number] Univers 16:00:00 16:00:00 WALLY yeager [facility] 2018-10-21 2018-10-21 Telephone [facility], [facility] [id number] 00:00:00 00:00:00 Natacha Nguyen [id number] dAe [id number] [id number] [facility] 204 [facility] Results This patient has no known results.
--- NOTE | 2021-04-30 15:37 | ER ---
Nurse's Notes [facility] Name: Jaimie Amanda Age: 60 yrs Sex: Female : 1960 Arrival Date: 04/30/2021 Time: 11:42 Bed External Waiting Private MD: Diagnosis: Presentation: 04/30 11:53 Chief complaint: Patient states: she has severe right abdominal pain that began ap3 04/27/2021 that has progressively gotten worse. Patient states she was evaluated in the ED yesterday, but can't remember what they gave her or what the outcome was. Coronavirus screen: At this time, the client does not indicate any symptoms associated with coronavirus-19. Ebola Screen: No symptoms or risks identified at this time. Initial Sepsis Screen: Does the patient meet any 2 criteria? HR > 90 bpm. No. Patient's initial sepsis screen is negative. Does the patient have a suspected source of infection? No. Patient's initial sepsis screen is negative. Risk Assessment: Do you want to hurt yourself or someone else? Patient reports no desire to harm self or others. Onset of symptoms was April 27, 2021. 11:53 Method Of Arrival: Ambulatory ap3 11:59 Acuity: ZHEN 3 ap3 Triage Assessment: 11:58 General: Appears in no apparent distress. Behavior is calm, cooperative. Pain: ap3 Complains of pain in right lower quadrant Pain began gradually, 2-3 days ago. Neuro: Level of Consciousness is awake, alert, obeys commands, Oriented to person, place, time, situation, Speech is normal. Cardiovascular: Patient's skin is warm and dry. Respiratory: Airway is patent Respiratory effort is even, unlabored, Respiratory pattern is regular, symmetrical. GI: Reports lower abdominal pain, nausea, vomiting. Historical: - Home Meds: 11:56 losartan 50 mg Oral tab [Active]; ap3 - PMHx: 11:56 Anxiety; diabetes mellitus; Hypertensive disorder; Hypothyroidism; ap3 - PSHx: 11:56 Thyroidectomy; ap3 - Immunization history:: Client reports receiving the 2nd dose of the Covid vaccine, Flu vaccine is up to date. - Social history:: Smoking status: Patient reports the use of cigarette tobacco products, smokes one-half pack cigarettes per day. Screenin:03 Abuse screen: Denies threats or abuse. Nutritional screening: Has had N/V for 3 or more ap3 days. Tuberculosis screening: No symptoms or risk factors identified. Assessment: 14:57 Reassessment: Called to exam room. No answer. Unable to locate patient. ss 15:33 Reassessment: Called to exam room. Unable to locate patient. No answer. ss Vital Signs: 11:53 BP 141 / 84; Pulse 93; Resp 18; Temp 97.9(TE); Pulse Ox 97% on R/A; Weight 74.84 kg; ap3 Height 5 ft. 7 in. (170.18 cm); Pain 10/10; 11:53 Body Mass Index 25.84 (74.84 kg, 170.18 cm) ap3 ED Course: 11:42 Patient arrived in ED. ds1 11:59 Triage completed. ap3 11:59 Arm band placed on right wrist. ap3 14:57 No provider procedures requiring assistance completed. Patient did not have IV access ss during this emergency room visit. 15:24 Lisa Miller, RN is Primary Nurse. cb5 Administered Medications: No medications were administered Outcome: 14:57 Eloped from waiting room. ss 14:57 unknown 15:38 Patient left the ED. ss Signatures: Aminah Villa ds1 [place] RN RN Elisa Gutierrez RN RN ap3 Lisa Miller, RN RN cb5 Corrections: (The following items were deleted from the chart) 11:59 11:53 Chief complaint: Patient states: she has severe right abdominal pain that began ap3 04/27/2021 that has progressively gotten worse. Patient states she was evaluated in the ED yesterday, but can't remember what they gave her or what the outcome was. ap3
[2021-04-30 16:45] VITALS: TEMP 97.9
[2021-04-30 16:54] VITALS: BP 127/77; O2SAT 96
== END 2021-04-30 15:38 | disposition left against medical advice (07) ==
LOC: ER 11:40
DX: Z53.21 Procedure and treatment not carried out due to patient leaving prior to being seen by health care provider (principal)
CPT/HCPCS: 99281

== ENCOUNTER 2021-05-01 09:06 | Emergency (ER) | payer OTHER ==
--- OUTSIDE RECORDS SUMMARY | 2021-05-01 09:09 | XMS REPORT | Continuity of Care Document ---
:[address] [facility] t Address [address] [place] [address] Care Team Providers Name Role Phone Sharpless Primary Care Physician RADHA SIMPSON Attending Clinician Unavailable RADHA SIMPSON Attending Clinician Unavailable Doctor Unassigned, Name Attending Clinician Unavailable RAGHU Attending Clinician Unavailable Nazanin CLARK A Attending Clinician Payers Payer Name Policy Type Policy Number Effective Date Expiration Date S [facility] STAR [id number] 2017 00:00:00 PLUS Problems This patient has no known problems. Allergies, Adverse Reactions, Alerts Allergy Allergy Status Severity Reaction(s) Onset Inactive Treating Comm ents Source Name Type Date Date Clinician NITRO DRUG Active Other-Cmnt 2019-0 Univer s TRANSDER 07-27 ity of MAL 00:00: [address] Branch ACETAMIN DRUG Active Other-Cmnt 2019-0 Univ ers OPHEN INGREDI 07-27 ity of 00:00: [address] Social History Social Habit Start Date Stop Date Quantity Comments Source Sex Assigned At [facility] Alcohol intake 2016-05-01 2016-05-[address] [facility] 00:00:00 00:00:00 non-drinker of Medical nter alcohol (finding) Smoking Status Start Date Stop Date Source Current every day smoker 2016-05-01 00:00:00 [facility] Medications Ordered Filled Start Stop Current Ordering Indication Dosage Frequency Signature Comments Components Source Medication Medication Date Date Medication? Clinician (SIG) Name Name OXcarbazepi Yes 600mg [id number] Take [address] ne 2-23 [id number] [facility] by [facility] - (TRILEPTAL) 10:23: 3D [...] Department ID 2020-08-03 2020-08-03 Outpatient MATT VÁSQUEZ [facility] [id number] Univers 10:00:00 10:00:00 MATT SIMPSON [id number] [facility] 2020-08-03 2020-08-03 Outpatient MATT VÁSQUEZ [facility] [id number] Univers 10:00:00 10:00:00 MATT SIMPSON [facility] 2020-07-25 2020-07-25 Orders Doctor ABE [id number] 00:00:00 00:00:00 Only Unassigned, BK [id number] [place] [facility] [id number] 2019-09-26 2019-09-26 Outpatient Bertin KRISHNAMURTHY [facility] [id number] Univers 16:00:00 16:00:00 WALLY [facility] 2019-09-26 2019-09-26 [facility] [id number] Univers 16:00:00 16:00:00 WALLY yeager [facility] 2018-10-21 2018-10-21 Telephone [facility], [facility] [id number] 00:00:00 00:00:00 Natacha Nguyen [id number] [facility] [id number] [facility] [id number] [facility] 204 [facility] Results This patient has no known results.
[2021-05-01 10:10] LABS: Hematocrit 36.8 % (36.0-45.0); Lymphocytes % 32.6 % (15.3-44.8); MPV 6.9 fL (7.6-11.3); RBC Red Blood Cell Count 3.96 M/uL (3.86-4.86)
[2021-05-01] MEDS ORDERED: ONDANSETRON 4 MG/2 ML VIAL ONE (10:30)
[2021-05-01] MEDS ORDERED: HYDROMORPHONE HCL 1 MG/ML INJ ONE ×2 (10:30→12:50)
[2021-05-01 10:34] LABS: ALT/SGPT 61 U/L (12-78); AST/SGOT 36 U/L (15-37); Albumin 3.7 g/dL (3.4-5.0); Alkaline Phosphatase 102 U/L (45-117); BUN Blood Urea Nitrogen 12 mg/dL (7-18); Bicarbonate 27 mmol/L (21-32); Bilirubin Total 0.2 mg/dL (0.2-1.0); Glucose Level 177 mg/dL (74-106); Lipase 71 U/L (73-393); Potassium 4.5 mmol/L (3.5-5.1); Protein, Total 7.5 g/dL (6.4-8.2); Sodium Level 130 mmol/L (136-145)
[2021-05-01 10:43] LABS: Bilirubin Direct < 0.1 mg/dL (0-0.2)
--- NOTE | 2021-05-01 13:31 | ER ---
Nurse's Notes [facility] Name: Jaimie Amanda Age: 60 yrs Sex: Female : 1960 Arrival Date: 05/01/2021 Time: 09:09 Bed 7 Private MD: Diagnosis: Abdominal pain, Generalized Presentation: 05/01 09:45 Chief complaint: Patient states: she has continued abdominal pain from the last 3 days. ap3 Patient was evaluated in this facility Thursday, but doesn't recall the outcome from the evaluation of the provider. Patient reports the pain is primarily in the right side of her abdomen and radiates toward the center. Coronavirus screen: At this time, the client does not indicate any symptoms associated with coronavirus-19. Ebola Screen: No symptoms or risks identified at this time. Initial Sepsis Screen: Does the patient meet any 2 criteria? No. Patient's initial sepsis screen is negative. Does the patient have a suspected source of infection? No. Patient's initial sepsis screen is negative. Risk Assessment: Do you want to hurt yourself or someone else? Patient reports no desire to harm self or others. Onset of symptoms was April 28, 2021. 09:45 Method Of Arrival: Ambulatory ap3 09:45 Acuity: ZHEN 3 ap3 Triage Assessment: 09:48 General: Appears in no apparent distress. Behavior is calm, cooperative. Pain: ap3 Complains of pain in right upper quadrant and right lower quadrant Pain radiates to umbilical area Pain began gradually, 2-3 days ago. Neuro: Level of Consciousness is awake, alert, obeys commands, Oriented to person, place, time, situation, Gait is steady, Speech is normal. Cardiovascular: Patient's skin is warm and dry. Respiratory: Airway is patent Respiratory effort is even, unlabored. GI: Reports lower abdominal pain, upper abdominal pain, nausea, vomiting. Historical: - Allergies: 09:48 No Known Allergies; ap3 - PMHx: 09:48 Anxiety; diabetes mellitus; Hypertensive disorder; Hypothyroidism; ap3 - Immunization history:: Client reports receiving the 2nd dose of the Covid vaccine, Flu vaccine is up to date. - Social history:: Smoking status: Patient reports the use of cigarette tobacco products, smokes one-half pack cigarettes per day. - Family history:: not pertinent. Screenin:49 Abuse screen: Denies threats or abuse. Nutritional screening: Has had N/V for 3 or more ap3 days. Tuberculosis screening: No symptoms or risk factors identified. 12:42 Fall Risk None identified. tw2 Assessment: 09:53 Reassessment: pt in room at this time. tw2 12:35 Reassessment: pt ambulating to restroom at this time. tw2 12:43 Reassessment: Patient appears in no apparent distress at this time. No changes from tw2 previously documented assessment. Patient and/or family updated on plan of care and expected duration. Pain level reassessed. Patient is alert, oriented x 3, equal unlabored respirations, skin warm/dry/pink. 13:03 Reassessment: Patient is alert, oriented x 3, equal unlabored respirations, skin jh6 warm/dry/pink. pt after receiving second does of pain medication states that she is feeling better and is just wanting to go home. Pt states that she is going to get her mother to pick her up. 13:13 General: pt states that she is going to go to her GI Dr when she leaves the ER. states jh6 that her stomach isnt hurting as much but she needs to know why its hurting all the time. pt not nauseated at this time and has already gotten dressed. . Vital Signs: 09:45 BP 139 / 85; Pulse 78; Resp 17; Temp 98.6; Pulse Ox 100% on R/A; Weight 74.84 kg; ap3 Height 5 ft. 7 in. (170.18 cm); 12:36 BP 155 / 74; Pulse 72; Resp 17; Pulse Ox 95% on R/A; tw2 13:05 BP 140 / 76; Pulse 76; Resp 18; Temp 97.6; Pulse Ox 97% ; Pain 2/10; jh6 13:43 BP 171 / 95; Pulse 68; Resp 18; Pulse Ox 98% on R/A; ss7 09:45 Body Mass Index 25.84 (74.84 kg, 170.18 cm) ap3 ED Course: 09:09 Patient arrived in ED. as 09:20 Joseph Thompson MD is Attending Physician. ma2 09:48 Triage completed. ap3 09:49 Arm band placed on right wrist. ap3 09:51 Patient has correct armband on for positive identification. Bed in low position. Call ap3 light in reach. Side rails up X 1. Pulse ox on. NIBP on. Door closed. Noise minimized. 10:05 Inserted saline lock: 22 gauge in left forearm, using aseptic technique. Blood tw2 collected. 10:18 Maddy Prieto, RN is Primary Nurse. tw2 13:12 IV discontinued, intact, bleeding controlled, No redness/swelling at site. Pressure jh6 dressing applied. Administered Medications: 10:05 Drug: NS 0.9% 1000 ml Route: IV; Rate: 1 bolus; Site: left forearm; tw2 12:42 Follow up: IV Status: Completed infusion jh6 10:33 Drug: Zofran (Ondansetron) 4 mg Route: IVP; Site: left forearm; tw2 12:42 Follow up: Response: No adverse reaction jh6 10:35 Drug: Dilaudid (HYDROmorphone) 1 mg Route: IVP; Site: left forearm; tw2 12:42 Follow up: Response: No adverse reaction jh6 12:49 Drug: Dilaudid (HYDROmorphone) 1 mg Route: IVP; Site: left forearm; jh6 Outcome: 13:30 Discharge ordered by MD. crowder 13:39 Discharged to home ss7 13:39 Condition: stable 13:39 Discharge instructions given to patient. 13:44 Patient left the ED. ss7 Signatures: Ada Marley Tara, RN RN tw2 Joseph Thompson MD MD maElisa Pennington RN RN ap3 Viridiana Noonan RN RN jh6 Dee Martinez RN RN ss7
--- NOTE | 2021-05-01 13:31 | EDPHYS ---
Physician Documentation [facility] Name: Jaimie Amanda Age: 60 yrs Sex: Female : 1960 Arrival Date: 05/01/2021 Time: 09:09 Bed 7 Private MD: ED Physician Joseph Thompson HPI: 05/01 12:41 This 60 yrs old Female presents to ER via Ambulatory with complaints of Abdominal Pain. ma2 12:41 Associated signs and symptoms: Pertinent negatives: anorexia, constipation, diarrhea, ma2 vomiting. Severity of pain: At its worst the pain was mild in the emergency department the pain is unchanged. The patient has experienced similar episodes in the past. Historical: - Allergies: :48 No Known Allergies; ap3 - PMHx: 09:48 Anxiety; diabetes mellitus; Hypertensive disorder; Hypothyroidism; ap3 - Immunization history:: Client reports receiving the 2nd dose of the Covid vaccine, Flu vaccine is up to date. - Social history:: Smoking status: Patient reports the use of cigarette tobacco products, smokes one-half pack cigarettes per day. - Family history:: not pertinent. ROS: 12:41 Constitutional: Negative for fever, chills, and weight loss. ma2 12:41 All other systems are negative. Exam: 12:41 Constitutional: This is a well developed, well nourished patient who is awake, alert, ma2 and in no acute distress. Chest/axilla: Normal chest wall appearance and motion. Nontender with no deformity. No lesions are appreciated. Cardiovascular: Regular rate and rhythm with a normal S1 and S2. No gallops, murmurs, or rubs. Normal PMI, no JVD. No pulse deficits. Respiratory: Lungs have equal breath sounds bilaterally, clear to auscultation and percussion. No rales, rhonchi or wheezes noted. No increased work of breathing, no retractions or nasal flaring. Abdomen/GI: Soft, non-tender, with normal bowel sounds. No distension or tympany. No guarding or rebound. No evidence of tenderness throughout. Skin: Warm, dry with normal turgor. Normal color with no rashes, no lesions, and no evidence of cellulitis. MS/ Extremity: Pulses equal, no cyanosis. Neurovascular intact. Full, normal range of motion. Neuro: Awake and alert, GCS 15, oriented to person, place, time, and situation. Cranial nerves II-XII grossly intact. Motor strength 5/5 in all extremities. Sensory grossly intact. Cerebellar exam normal. Normal gait. Vital Signs: 09:45 BP 139 / 85; Pulse 78; Resp 17; Temp 98.6; Pulse Ox 100% on R/A; Weight 74.84 kg; ap3 Height 5 ft. 7 in. (170.18 cm); 12:36 BP 155 / 74; Pulse 72; Resp 17; Pulse Ox 95% on R/A; tw2 13:05 BP 140 / 76; Pulse 76; Resp 18; Temp 97.6; Pulse Ox 97% ; Pain 2/10; jh6 13:43 BP 171 / 95; Pulse 68; Resp 18; Pulse Ox 98% on R/A; ss7 09:45 Body Mass Index 25.84 (74.84 kg, 170.18 cm) ap3 MDM: 12:41 Differential diagnosis: gastritis, gastroesophageal reflux disease, non-specific abd ma2 pain, pancreatitis, CT abdomen done 2 days ago and was unremarkable with no acute fine. 13:29 Patient medically screened. [facility] 13:29 Data reviewed: vital signs, nurses notes. Counseling: I had a detailed discussion with lakesha the patient and/or guardian regarding: the historical points, exam findings, and any diagnostic results supporting the discharge/admit diagnosis, the presence of at least one elevated blood pressure reading (>120/80) during this emergency department visit, the need for outpatient follow up. Response to treatment: the patient's symptoms have markedly improved after treatment. 13:29 ED course: I recommend admission based on patient's symptoms, findings, however patient lakesha would like to be discharged she will follow up with PCP to. 05/01 09:22 Order name: Basic Metabolic Panel; Complete Time: 11:37 [facility] 05/01 09:22 Order name: CBC with Diff; Complete Time: 11:37 [facility] 05/01 09:22 Order name: Hepatic Function; Complete Time: 11:37 md05/01 09:22 Order name: Lipase; Complete Time: 11:37 [facility] 05/01 09:22 Order name: IV Saline Lock; Complete Time: 10: md05/01 09:22 Order name: Labs collected and sent; Complete Time: 10:05 ma2 Administered Medications: 10:05 Drug: NS 0.9% 1000 ml Route: IV; Rate: 1 bolus; Site: left forearm; tw2 12:42 Follow up: IV Status: Completed infusion jh6 10:33 Drug: Zofran (Ondansetron) 4 mg Route: IVP; Site: left forearm; tw2 12:42 Follow up: Response: No adverse reaction jh6 10:35 Drug: Dilaudid (HYDROmorphone) 1 mg Route: IVP; Site: left forearm; tw2 12:42 Follow up: Response: No adverse reaction jh6 12:49 Drug: Dilaudid (HYDROmorphone) 1 mg Route: IVP; Site: left forearm; 6 Disposition Summary: 05/01/21 13:30 Discharge Ordered Location: Home ma2 Condition: Stable ma2 Diagnosis - Abdominal pain, Generalized ma2 Followup: ma2 - With: Private Physician - When: Tomorrow - Reason: If symptoms return, Continuance of care Discharge Instructions: - Discharge Summary Sheet ma2 - Abdominal Pain, Adult ma2 Forms: - Medication Reconciliation Form ma2 - Thank You Letter ma2 - Antibiotic Education ma2 - Prescription Opioid Use ma2 Signatures: Dispatcher [employer] Maddy Liriano RN RN tw2 Joseph Thompson MD MD ma2 Elisa Gutierrez RN RN ap3 Viridiana Noonan RN RN jh6 Corrections: (The following items were deleted from the chart) 09:37 09:23 Abdomen Pelvis W Con+CT.RAD.BRZ ordered. EDMS EDMS
[2021-05-01 15:00] VITALS: TEMP 97.6
[2021-05-01 15:02] VITALS: BP 171/95; O2SAT 98
== END 2021-05-01 13:44 | disposition home or self-care (01) ==
LOC: ER 09:06
DX: R10.84 Generalized abdominal pain (principal); I10 Essential (primary) hypertension; F17.210 Nicotine dependence, cigarettes, uncomplicated
CPT/HCPCS: 96361; 85025; 80048; 36415; 80076; 83690; 96375; 96374; 99284; J1170 ×2; J2405

== ENCOUNTER 2021-05-02 07:34 | Emergency (ER) | payer OTHER ==
--- OUTSIDE RECORDS SUMMARY | 2021-05-02 07:36 | XMS REPORT | Continuity of Care Document ---
:1960 Author Organization [facility] t Address [address] [place] [address] Care Team Providers Name Role Phone Sharpless Primary Care Physician RADHA SIMPSON Attending Clinician Unavailable RADHA SIMPSON Attending Clinician Unavailable Doctor Unassigned, Name Attending Clinician Unavailable RAGHU Attending Clinician Unavailable Nazanin CLARK A Attending Clinician Payers Payer Name Policy Type Policy Number Effective Date Expiration Date S [facility] STAR [id number] 2017 00:00:00 PLUS Problems This patient has no known problems. Allergies, Adverse Reactions, Alerts Allergy Allergy Status Severity Reaction(s) Onset Inactive Treating Comm ents Source Name Type Date Date Clinician NITRO DRUG Active Other-Cmnt 2019-0 Univer s TRANSDER 07-27 ity of MAL 00:00: [address] [place] ACETAMIN DRUG Active Other-Cmnt 2019-0 Univ ers OPHEN INGREDI 07-27 ity of 00:00: [address] Social History Social Habit Start Date Stop Date Quantity Comments Source Sex Assigned At [facility] Alcohol intake 2016-05-01 2016-05-[address] [facility] 00:00:00 00:00:00 non-drinker of Medical Ce nter alcohol (finding) Smoking Status Start Date Stop Date Source Current every day smoker 2016-05-01 00:00:00 [facility] Medications Ordered Filled Start Stop Current Ordering Indication Dosage Frequency Signature Comments Components Source Medication Medication Date Date Medication? Clinician (SIG) Name Name OXcarbazepi Yes 600mg [id number] Take [address] ne 2-23 [id number] [facility] by [facility] - (TRILEPTAL) 10:23: 3D [...] Department ID 2020-08-03 2020-08-03 Outpatient MATT VÁSQUEZ [facility] [id number] Univers 10:00:00 10:00:00 MATT SIMPSON [id number] [facility] 2020-08-03 2020-08-03 Outpatient MATT VÁSQUEZ [facility] [id number] Univers 10:00:00 10:00:00 MATT SIMPSON [facility] 2020-07-25 2020-07-25 Orders Doctor ABE [id number] 00:00:00 00:00:00 Only Unassigned, BK [id number] Bent [facility] [id number] 2019-09-26 2019-09-26 Outpatient Bertin KRISHNAMURTHY [facility] [id number] Univers 16:00:00 16:00:00 WALLY [facility] 2019-09-26 2019-09-26 [facility] [id number] Univers 16:00:00 16:00:00 WALLY [facility] 2018-10-21 2018-10-21 Telephone [facility], [facility] [id number] 00:00:00 00:00:00 Natacha Nguyen [id number] [facility] [id number] [facility] [phone] [facility] 204 [facility] Results This patient has no known results.
--- NOTE | 2021-05-02 08:16 | EDPHYS ---
Physician Documentation [facility] Name: Jaimie Amanda Age: 60 yrs Sex: Female : 1960 Arrival Date: 05/02/2021 Time: 07:34 Bed 8 Private MD: ED Physician Tera Raymond HPI: 05/02 08:27 This 60 yrs old Female presents to ER via Ambulatory with complaints of Abdominal Pain. kdr 08:27 The patient presents with abdominal pain in the right upper quadrant, right lower kdr quadrant. Onset: The symptoms/episode began/occurred at an unknown time, This is the 10th visit this month for this patient with the same complaint. The symptoms do not radiate. Associated signs and symptoms: Pertinent positives: nausea and vomiting, Pertinent negatives: dysuria, fever, headache, hematuria, nausea, palpitations, shortness of breath. The symptoms are described as achy, crampy. Modifying factors: The symptoms are alleviated by nothing, the symptoms are aggravated by nothing. Severity of pain: At its worst the pain was mild in the emergency department the pain is unchanged. The patient has not experienced similar symptoms in the past. The patient has not experienced similar symptoms in the past, The patient has experienced similar episodes in the past, chronically. The patient has been recently seen at the [facility] Emergency Department, yesterday. The patient presents now for the 10th time this month with the same problem. She states that her pain is the same as it has been previously. There is no change. Pain remains in the right side of her abdomen. The patient does not appear acutely ill. Upon discharge, she walked out of the ED without any sign or symptom of acute abdominal pain or problems. Historical: - Allergies: 07:49 No Known Allergies; tw2 - Home Meds: 07:49 losartan 50 mg Oral tab [Active]; levothyroxine oral [Active]; tw2 - PMHx: 07:49 Hypothyroidism; Hypertensive disorder; diabetes mellitus; Anxiety; tw2 - PSHx: 07:49 Thyroidectomy; tw2 - Immunization history:: Adult Immunizations. - Social history:: Smoking status: . ROS: 08:27 Constitutional: Negative for fever, chills, and weight loss, Eyes: Negative for injury, kdr pain, redness, and discharge, Neck: Negative for injury, pain, and swelling, Cardiovascular: Negative for chest pain, palpitations, and edema, Respiratory: Negative for shortness of breath, cough, wheezing, and pleuritic chest pain, Back: Negative for injury and pain, : Negative for injury, bleeding, discharge, and swelling, MS/Extremity: Negative for injury and deformity, Skin: Negative for injury, rash, and discoloration, Neuro: Negative for headache, weakness, numbness, tingling, and seizure activity. Psych: Negative for depression, anxiety, suicide ideation, homicidal ideation, and hallucinations, Allergy/Immunology: Negative for hives, rash, and allergies, Endocrine: Negative for neck swelling, polydipsia, polyuria, polyphagia, and marked weight changes, Hematologic/Lymphatic: Negative for swollen nodes, abnormal bleeding, and unusual bruising. 08:27 Abdomen/GI: Positive for abdominal pain, nausea, Negative for vomiting, diarrhea, constipation, abdominal cramps, abdominal distension, anorexia, dysphagia, hematemesis, black/tarry stool, rectal pain, rectal bleeding, bowel incontinence. Exam: 08:27 Constitutional: This is a well developed, well nourished patient who is awake, alert, kdr and in no acute distress. Head/Face: Normocephalic, atraumatic. Eyes: Pupils equal round and reactive to light, extra-ocular motions intact. Lids and lashes normal. Conjunctiva and sclera are non-icteric and not injected. Cornea within normal limits. Periorbital areas with no swelling, redness, or edema. Neck: Trachea midline, no thyromegaly or masses palpated, and no cervical lymphadenopathy. Supple, full range of motion without nuchal rigidity, or vertebral point tenderness. No Meningismus. Chest/axilla: Normal chest wall appearance and motion. Nontender with no deformity. No lesions are appreciated. Cardiovascular: Regular rate and rhythm with a normal S1 and S2. No gallops, murmurs, or rubs. Normal PMI, no JVD. No pulse deficits. Respiratory: Lungs have equal breath sounds bilaterally, clear to auscultation and percussion. No rales, rhonchi or wheezes noted. No increased work of breathing, no retractions or nasal flaring. Back: No spinal tenderness. No costovertebral tenderness. Full range of motion. Skin: Warm, dry with normal turgor. Normal color with no rashes, no lesions, and no evidence of cellulitis. MS/ Extremity: Pulses equal, no cyanosis. Neurovascular intact. Full, normal range of motion. Neuro: Awake and alert, GCS 15, oriented to person, place, time, and situation. Cranial nerves II-XII grossly intact. Motor strength 5/5 in all extremities. Sensory grossly intact. Cerebellar exam normal. Normal gait. Psych: Awake, alert, with orientation to person, place and time. Behavior, mood, and affect are within normal limits. 08:27 Abdomen/GI: Inspection: abdomen appears normal, Bowel sounds: active, Palpation: soft, mild abdominal tenderness, in the right upper quadrant and right lower quadrant. Vital Signs: 07:50 BP 149 / 73; Pulse 87; Resp 17; Temp 97.9(TE); Pulse Ox 98% on R/A; Weight 74.84 kg tw2 (R); Pain 10/10; MDM: 08:16 Patient medically screened. kdr 08:27 Data reviewed: vital signs, nurses notes, lab test result(s), radiologic studies. kdr Counseling: I had a detailed discussion with the patient and/or guardian regarding: the historical points, exam findings, and any diagnostic results supporting the discharge/admit diagnosis, lab results, radiology results. 05/02 07:41 Order name: Chem 7 iw 05/02 07:56 Order name: Urine Dipstick-Ancillary (obtain specimen) Administered Medications: 08:06 Drug: Ketorolac 15 mg Route: IVP; Site: right upper arm; cordero 08:06 Follow up: Response: No adverse reaction cordero Disposition Summary: 05/02/21 08:16 Discharge Ordered Location: Home kdr Problem: new kdr Symptoms: have improved kdr Condition: Stable kdr Diagnosis - Abdominal pain, Generalized kdr - Other abdominal pain - Right lateral - unchanged from prior ED visists this month kdr Followup: kdr - With: Private Physician - When: 2 - 3 days - Reason: If symptoms return, Further diagnostic work-up, Recheck today's complaints, Continuance of care, Re-evaluation by your physician Followup: kdr - With: Arsenio Smith MD - When: 2 - 3 days - Reason: If symptoms return, Further diagnostic work-up, Recheck today's complaints, Continuance of care, Re-evaluation by your physician Followup: kdr - With: Arsenio Reynolds MD - When: 2 - 3 days - Reason: If symptoms return, Further diagnostic work-up, Recheck today's complaints, Continuance of care, Re-evaluation by your physician Discharge Instructions: - Discharge Summary Sheet kdr - Abdominal Pain, Adult, [id number] kdr Forms: - Medication Reconciliation Form kdr - Thank You Letter kdr Signatures: Dispatcher [employer] Tera Calderon MD MD kdr Therese Logan RN RN iw Maddy Prieto RN RN tw2 Jenifer-StagerGail RN RN cordero
--- NOTE | 2021-05-02 08:16 | ER ---
Nurse's Notes [facility] Name: Jaimie Amanda Age: 60 yrs Sex: Female : 1960 Arrival Date: 05/02/2021 Time: 07:34 Bed 8 Private MD: Diagnosis: Abdominal pain, Generalized;Other abdominal pain-Right lateral - unchanged from prior ED visists this month Presentation: 05/02 07:47 Chief complaint: Patient states: i have been throwing up all night. well dry heaves. my tw2 stomach hurts so bad. the right side hurts so bad. Coronavirus screen: At this time, the client does not indicate any symptoms associated with coronavirus-19. Ebola Screen: Patient denies travel to an Ebola-affected area in the 21 days before illness onset. Initial Sepsis Screen: Does the patient meet any 2 criteria? No. Patient's initial sepsis screen is negative. Does the patient have a suspected source of infection? No. Patient's initial sepsis screen is negative. Risk Assessment: Do you want to hurt yourself or someone else? Patient reports no desire to harm self or others. Onset of symptoms was May 02, 2021. 07:47 Method Of Arrival: Ambulatory tw2 07:47 Acuity: ZHEN 3 tw2 Triage Assessment: 07:49 General: Appears uncomfortable, Behavior is crying. Pain: Complains of pain in right tw2 lower quadrant. GI: Reports lower abdominal pain, nausea, vomiting. Historical: - Allergies: 07:49 No Known Allergies; tw2 - Home Meds: 07:49 losartan 50 mg Oral tab [Active]; levothyroxine oral [Active]; tw2 - PMHx: 07:49 Hypothyroidism; Hypertensive disorder; diabetes mellitus; Anxiety; tw2 - PSHx: 07:49 Thyroidectomy; tw2 - Immunization history:: Adult Immunizations. - Social history:: Smoking status: . Screenin:01 Abuse screen: Denies threats or abuse. Denies injuries from another. Nutritional cordero screening: No deficits noted. Tuberculosis screening: No symptoms or risk factors identified. Fall Risk None identified. Assessment: 08:01 General: Appears in no apparent distress. Behavior is calm, cooperative. Pain: cordero Complains of pain in right upper quadrant. GI: Bowel sounds present X 4 quads. Abd is soft Abdomen is tender to palpation in right upper quadrant. Vital Signs: 07:50 BP 149 / 73; Pulse 87; Resp 17; Temp 97.9(TE); Pulse Ox 98% on R/A; Weight 74.84 kg tw2 (R); Pain 10/10; ED Course: 07:34 Patient arrived in ED. am2 07:35 Tera Raymond MD is Attending Physician. kdr 07:48 Triage completed. tw2 07:50 Arm band placed on. tw2 07:51 Viridiana Diehl, RN is Primary Nurse. jg9 08:01 Patient has correct armband on for positive identification. Bed in low position. cordero 08:01 No provider procedures requiring assistance completed. cordero 08:14 Arsenio Smith MD is Referral Physician. kdr 08:14 Arsenio Reynolds MD is Referral Physician. kdr 08:21 Patient did not have IV access during this emergency room visit. cordero Administered Medications: 08:06 Drug: Ketorolac 15 mg Route: IVP; Site: right upper arm; cordero 08:06 Follow up: Response: No adverse reaction cordero Outcome: 08:16 Discharge ordered by . kdr 08:21 Discharged to home ambulatory. cordero 08:21 Condition: good 08:21 Discharge instructions given to patient. 08:22 Patient left the ED. cordero Signatures: Tera Raymond MD MD [facility] Maddy Prieto RN RN tw2 Elisa Gregory 2 Viridiana Diehl RN RN jg9 Gail Farnsworth RN RN cordero
[2021-05-02 08:37] VITALS: BP 149/73; TEMP 97.9; O2SAT 98
== END 2021-05-02 08:22 | disposition home or self-care (01) ==
LOC: ER 07:34
DX: R10.84 Generalized abdominal pain (principal); R10.9 Unspecified abdominal pain; I10 Essential (primary) hypertension; E03.9 Hypothyroidism, unspecified
CPT/HCPCS: 96374; 99283

== ENCOUNTER 2021-05-02 12:07 | Emergency (ER) | payer OTHER ==
--- OUTSIDE RECORDS SUMMARY | 2021-05-02 12:10 | XMS REPORT | Continuity of Care Document ---
:1960 Author Organization [facility] t Address [address] [place] [address] Care Team Providers Name Role Phone Sharpless Primary Care Physician RADHA SIMPSON Attending Clinician Unavailable RADHA SIMPSON Attending Clinician Unavailable Doctor Unassigned, Name Attending Clinician Unavailable RAGHU Attending Clinician Unavailable Nazanin CLARK A Attending Clinician Payers Payer Name Policy Type Policy Number Effective Date Expiration Date S [facility] STAR [id number] 2017 00:00:00 PLUS Problems This patient has no known problems. Allergies, Adverse Reactions, Alerts Allergy Allergy Status Severity Reaction(s) Onset Inactive Treating Comm ents Source Name Type Date Date Clinician NITRO DRUG Active Other-Cmnt 2019-0 Univer s TRANSDER 07-27 ity of MAL 00:00: [address] [place] ACETAMIN DRUG Active Other-Cmnt 2019-0 Univ ers OPHEN INGREDI 07-27 ity of 00:00: [address] Social History Social Habit Start Date Stop Date Quantity Comments Source Sex Assigned At [facility] Alcohol intake 2016-05-01 2016-05-01 Current [facility] 00:00:00 00:00:00 non-drinker of Medical Ce nter alcohol (finding) Smoking Status Start Date Stop Date Source Current every day smoker 2016-05-01 00:00:00 [facility] Medications Ordered Filled Start Stop Current Ordering Indication Dosage Frequency Signature Comments Components Source Medication Medication Date Date Medication? Clinician (SIG) Name Name OXcarbazepi Yes 600mg [id number] Take [address] ne 2-23 [id number] [facility] by [facility] - (TRILEPTAL) 10:23: 3D [...] Department ID 2020-08-03 2020-08-03 Outpatient MATT VÁSQUEZ [facility] [id number] Univers 10:00:00 10:00:00 MATT SIMPSON [id number] [facility] 2020-08-03 2020-08-03 Outpatient MATT VÁSQUEZ [facility] [id number] Univers 10:00:00 10:00:00 MATT SIMPSON [facility] 2020-07-25 2020-07-25 Orders Doctor ABE [id number] 00:00:00 00:00:00 Only Unassigned, KB [id number] [place] [facility] [id number] 2019-09-26 2019-09-26 Outpatient Bertin KRISHNAMURTHY [facility] [id number] Univers 16:00:00 16:00:00 WALLY [facility] 2019-09-26 2019-09-26 [facility] [id number] Univers 16:00:00 16:00:00 WALLY yeager [facility] 2018-10-21 2018-10-[address] [facility], [facility] [id number] 00:00:00 00:00:00 Natacha Nguyen [id number] Ade [id number] [facility] [id number] [facility] 204 [facility] Results This patient has no known results.
--- NOTE | 2021-05-02 13:58 | ER ---
Nurse's Notes [facility] Name: Jaimie Amanda Age: 60 yrs Sex: Female : 1960 Arrival Date: 05/02/2021 Time: 12:10 Bed Waiting Private MD: Diagnosis: Presentation: 05/02 12:33 Chief complaint: Patient states: i am having the same pain. it hurts really bad. im tw2 sorry to keep coming up here. i did throw up since i left. Coronavirus screen: At this time, the client does not indicate any symptoms associated with coronavirus-19. Ebola Screen: Patient denies travel to an Ebola-affected area in the 21 days before illness onset. Initial Sepsis Screen: Does the patient meet any 2 criteria? No. Patient's initial sepsis screen is negative. Does the patient have a suspected source of infection? No. Patient's initial sepsis screen is negative. Risk Assessment: Do you want to hurt yourself or someone else? Patient reports no desire to harm self or others. Onset of symptoms was May 02, 2021. 12:33 Method Of Arrival: Ambulatory tw2 12:33 Acuity: ZHEN 3 tw2 Triage Assessment: 12:34 General: Appears in no apparent distress. Behavior is calm, cooperative, appropriate tw2 for age. Pain: Complains of pain in abdomen. GI: Reports lower abdominal pain, anorexia, nausea, vomiting. Historical: - Home Meds: 12:34 levothyroxine oral [Active]; losartan 50 mg Oral tab [Active]; tw2 - PMHx: 12:34 Anxiety; diabetes mellitus; Hypertensive disorder; Hypothyroidism; tw2 - PSHx: 12:34 Thyroidectomy; tw2 - Immunization history:: Adult Immunizations. - Social history:: Smoking status: . Vital Signs: 12:33 BP 140 / 78; Pulse 81; Resp 17; Temp 98.2(TE); Pulse Ox 97% on R/A; Weight 74.84 kg tw2 (R); Pain 10/10; ED Course: 12:10 Patient arrived in ED. as 12:34 Triage completed. tw2 12:34 Arm band placed on. tw2 13:55 Dee Martinez RN is Primary Nurse. ss7 Administered Medications: No medications were administered Outcome: 13:57 Patient left the ED. iw Signatures: Ada Marley as Therese Logan, RN RN iw Maddy Prieto RN RN tw2 Dee Martinez RN RN ss7
[2021-05-02 14:24] VITALS: BP 140/78; TEMP 98.2; O2SAT 97
== END 2021-05-02 13:57 | disposition left against medical advice (07) ==
LOC: ER 12:07
DX: Z53.21 Procedure and treatment not carried out due to patient leaving prior to being seen by health care provider (principal)
CPT/HCPCS: 99281

== ENCOUNTER 2021-05-09 16:34 | Inpatient (IN) | payer OTHER ==
[2021-05-09] MEDS ORDERED: ONDANSETRON 4 MG/2 ML VIAL ONE (17:42)
[2021-05-09] MEDS ORDERED: FAMOTIDINE 20 MG/2 ML VIAL IV ONE (17:42)
[2021-05-09 17:45] LABS: Absolute Lymphocytes (CBC) 1.4 K/uL (0.7-4.9); Hematocrit 37.7 % (36.0-45.0); Lymphocytes % 20.7 % (15.3-44.8); RBC Red Blood Cell Count 4.11 M/uL (3.86-4.86)
[2021-05-09 17:58] LABS: ALT/SGPT 43 U/L (12-78); AST/SGOT 33 U/L (15-37); Alkaline Phosphatase 116 U/L (45-117); BUN Blood Urea Nitrogen 14 mg/dL (7-18); Bicarbonate 29 mmol/L (21-32); Bilirubin Total 0.3 mg/dL (0.2-1.0); Glucose Level 167 mg/dL (74-106); Lipase 50 U/L (73-393); Protein, Total 7.9 g/dL (6.4-8.2); Sodium Level 122 mmol/L (136-145)
[2021-05-09 18:00] LABS: Bilirubin Direct < 0.1 mg/dL (0-0.2)
[2021-05-09 18:13] LABS: MPV 7.6 fL (7.6-11.3)
--- NOTE | 2021-05-09 19:27 | RAD REPORT ---
EXAM DESCRIPTION: RAD - Chest Single View - 05/09/2021 6:57 pm CLINICAL HISTORY: vomiting COMPARISON: Portable April 03 TECHNIQUE: AP portable chest image was obtained 05/09/2021 6:57 pm . FINDINGS: Baseline prominent interstitial pattern has not changed. No new mass or consolidation. Min imal edema or infiltrate could be masked. Heart size and vasculature are normal range and stable. No measurable pleural effusion and no pneumo thorax. No acute bony abnormality seen. No acute aortic findings suspected. IMPRESSION: No acute cardiopulmonary process. No significant change from comparison.
--- NOTE | 2021-05-09 19:28 | EDPHYS ---
Physician Documentation [facility] Name: Jaimie Amanda Age: 60 yrs Sex: Female : 1960 Arrival Date: 05/09/2021 Time: 16:43 Bed 24 Private MD: COSTA Physician Diego Ramirez HPI: 05/09 17:05 This 60 yrs old Female presents to ER via EMS with complaints of Nausea and Vomiting. cp 17:05 The patient presents to the emergency department with nausea, with "dry heaves", cp vomiting, that is continuous, described as bilious, abdominal pain, of the abdomen diffusely. Onset: The symptoms/episode began/occurred today. Possible causes: history of hyponatremia. Associated signs and symptoms: Pertinent positives: abdominal pain, Pertinent negatives: constipation, diarrhea, fever, GI bleeding, chest pain. 17:05 Severity of symptoms: in the emergency department the symptoms are unchanged despite cp home interventions. The patient has experienced similar episodes in the past, several times. Historical: - Allergies: 16:44 No Known Allergies; ab2 - PMHx: 16:44 Anxiety; diabetes mellitus; Hypertensive disorder; Hypothyroidism; ab2 - PSHx: 16:44 Thyroidectomy; ab2 - Immunization history:: Adult Immunizations up to date. - Social history:: Smoking status: Patient reports the use of cigarette tobacco products, smokes one pack cigarettes per day. ROS: 17:10 Constitutional: Positive for poor PO intake, Negative for body aches, chills, fever. cp 17:10 Eyes: Negative for injury, pain, redness, and discharge. cp 17:10 ENT: Negative for drainage from ear(s), ear pain, sore throat, difficulty swallowing, difficulty handling secretions. 17:10 Cardiovascular: Negative for chest pain, edema, palpitations. 17:10 Respiratory: Negative for cough, shortness of breath, wheezing. 17:10 Abdomen/GI: Positive for abdominal pain, nausea and vomiting, Negative for diarrhea, constipation, hematemesis. 17:10 Neuro: Negative for headache, weakness. 17:10 All other systems are negative. Exam: 17:15 Constitutional: The patient appears in no acute distress, alert, awake, cp non-diaphoretic, non-toxic, well developed, well nourished, uncomfortable. 17:15 Head/Face: Normocephalic, atraumatic. cp 17:15 Eyes: Pupils: equal, round, and reactive to light and accomodation, Extraocular movements: intact throughout, Conjunctiva: normal, no exudate, no injection, Sclera: no appreciated abnormality, Lids and lashes: appear normal, bilaterally. 17:15 ENT: External ear(s): are unremarkable, Nose: is normal, Mouth: Lips: moist, Oral mucosa: moist, Posterior pharynx: Airway: no evidence of obstruction, patent. 17:15 Neck: ROM/movement: is normal, is supple, without pain, no range of motions limitations. 17:15 Chest/axilla: Inspection: normal, Palpation: is normal, no crepitus, no tenderness. 17:15 Cardiovascular: Rate: normal, Rhythm: regular, Edema: is not appreciated, JVD: is not appreciated. 17:15 Respiratory: the patient does not display signs of respiratory distress, Respirations: normal, no use of accessory muscles, no retractions, labored breathing, is not present, Breath sounds: are clear throughout, no decreased breath sounds, no stridor, no wheezing. 17:15 Abdomen/GI: Inspection: abdomen appears normal, Bowel sounds: active, all quadrants, Palpation: soft, in all quadrants, mild abdominal tenderness, in all quadrants, rebound tenderness, is not appreciated, involuntary guarding, is not appreciated. 17:15 Back: pain, is absent, ROM is normal. 17:15 Neuro: Orientation: to person, situation, Mentation: able to follow commands, slow to respond, Motor: moves all fours, strength is normal. 19:07 ECG was reviewed by the Attending Physician. cp Vital Signs: 16:43 BP 158 / 80; Pulse 65; Resp 16; Temp 97.9(O); Pulse Ox 97% on R/A; Weight 86.18 kg; ab2 Height 5 ft. 7 in. (170.18 cm); Pain 0/10; 17:41 BP 180 / 94; Pulse 68; Resp 16; Pulse Ox 98% on R/A; ab2 18:30 BP 167 / 89; Pulse 67; Resp 16; Pulse Ox 99% on R/A; ab2 19:30 BP 196 / 100; Pulse 70; Resp 18; Pulse Ox 96% on R/A; ab2 20:15 BP 203 / 111; Pulse 71; Resp 18; Pulse Ox 97% on R/A; ab2 21:33 BP 188 / 96; Pulse 64; Resp 18; Pulse Ox 98% on R/A; ab2 21:54 BP 204 / 103; Pulse 71; Resp 18; Pulse Ox 96% on R/A; ab2 16:43 Body Mass Index 29.76 (86.18 kg, 170.18 cm) ab2 MDM: 16:56 Patient medically screened. cp 17:00 Differential diagnosis: Nonspecific abd pain, gastritis, pancreatitis, viral cp gastroenteritis, gastroenteritis, electrolyte abnormality, dehydration. 18:35 Data reviewed: vital signs, nurses notes, lab test result(s), radiologic studies, CT cp scan. 18:45 Physician consultation: Hu Gardner was called at 18:45, was contacted at 18:45, regarding admission, to the telemetry unit. patient's condition. 05/09 16:56 Order name: Basic Metabolic Panel cp 05/09 16:56 Order name: CBC with Diff cp 05/09 16:56 Order name: Hepatic Function cp 05/09 16:56 Order name: Lipase cp 05/09 16:57 Order name: Basic Metabolic Panel; Complete Time: 18:34 EDMS 05/09 18:34 Interpretation: NA 122; CL 86; GLUC 167. cp 05/09 16:57 Order name: CBC with Automated Diff EDMS 05/09 16:57 Order name: Liver (Hepatic) Function; Complete Time: 18:34 EDMS 05/09 16:57 Order name: Lipase; Complete Time: 18:34 EDMS 05/09 18:35 Order name: Troponin High Sensitivity cp 05/09 18:36 Order name: Magnesium cp 05/09 19:30 Order name: Urine Osmolality la1 05/09 19:30 Order name: Osmolality, Serum la1 05/09 19:30 Order name: Urine Sodium Random la1 05/09 20:03 Order name: COVID-19 SARS RT PCR (Document "Date of Onset" if Symptomatic) cp 05/09 18:35 Order name: XRAY Chest (1 view); Complete Time: 19:30 cp 05/09 20:23 Order name: TSH la1 05/09 20:23 Order name: Cortisol la1 05/09 20:23 Order name: Uric Acid la1 05/09 20:23 Order name: Thyroid Stimulating Hormone EDMS 05/09 20:23 Order name: Uric Acid EDMS 05/09 20:50 Order name: Urine Dipstick-Ancillary EDMS 05/09 21:05 Order name: CBC Smear Scan EDMS 05/09 22:53 Order name: T4 Free EDMS 05/10 00:34 Order name: Glucose, Ancillary Testing EDMS 05/10 01:45 Order name: Basic Metabolic Panel EDMS 05/10 06:12 Order name: CBC with Automated Diff EDMS 05/10 06:31 Order name: Basic Metabolic Panel EDMS 05/10 06:31 Order name: Lipid Profile EDMS 05/10 06:31 Order name: Magnesium EDMS 05/09 16:56 Order name: IV Saline Lock; Complete Time: 17:38 cp 05/09 16:56 Order name: Labs collected and sent; Complete Time: 17:38 cp 05/09 18:35 Order name: EKG; Complete Time: 18:36 cp 05/09 18:35 Order name: EKG - Nurse/Tech; Complete Time: 21:54 cp 05/09 20:24 Order name: Bryant; Complete Time: 20:45 cp 05/09 20:40 Order name: Urine Dipstick-Ancillary (obtain specimen); Complete Time: 20:53 la1 EC:07 Rate is 73 beats/min. Rhythm is regular. FL interval is normal. QRS interval is normal. cp QT interval is normal. T waves are Inverted in lead aVR. Interpreted by me. Reviewed by me. Administered Medications: 17:41 Drug: Zofran (Ondansetron) 4 mg Route: IVP; Site: right antecubital; ab2 21:53 Follow up: Response: No adverse reaction ab2 17:41 Drug: Pepcid (famotidine) 20 mg Route: IVP; Site: right antecubital; ab2 21:53 Follow up: Response: No adverse reaction ab2 21:44 Drug: hydrALAZINE 10 mg Route: IVP; Site: right antecubital; ab2 21:44 Drug: NS 0.9% 1000 ml Route: IV; Rate: 100 ml/hr; Site: right antecubital; ab2 23:50 Drug: Ativan (LORazepam) 0.5 mg Route: IVP; Site: left forearm; sm5 Disposition Summary: 05/09/21 19:27 Hospitalization Ordered Hospitalization Status: Inpatient Admission cp Provider: Prince carleen Purdy Condition: Stable cp Problem: an ongoing problem cp Symptoms: have improved cp Bed/Room Type: Standard cp Location: [facility] ER HOLD(05/09/21 21:45) cg Room Assignment: ERHOLD-(05/09/21 21:45) cg Diagnosis - Hypo-osmolality and hyponatremia cp - Altered mental status, unspecified cp Forms: - Medication Reconciliation Form cp - SBAR form cp Signatures: Dispatcher [employer] EDMS uH Gardner, EDUARDO-C COLLOID MILL OPERATOR-Cla1 Diego Ang PA PA cp Shawnee Ramirez, RN RN cg Vivian Guzman RN RN sm5 Ike Mauricio2 Corrections: (The following items were deleted from the chart) : 19:27 Intensive Care Unit cp cg : 19:27 cp cg
--- NOTE | 2021-05-09 19:28 | ER ---
Nurse's Notes [facility] Name: Jaimie Amanda Age: 60 yrs Sex: Female : 1960 Arrival Date: 05/09/2021 Time: 16:43 Bed 24 Private MD: Diagnosis: Hypo-osmolality and hyponatremia;Altered mental status, unspecified Presentation: 05/09 16:43 Chief complaint: EMS states: Vomiting for 3 hours prior to arrival. Pt denies any pain. ab2 Coronavirus screen: Vaccine status: Patient reports receiving the 2nd dose of the covid vaccine. Client denies travel out of the [place] in the last 14 days. At this time, the client does not indicate any symptoms associated with coronavirus-19. Ebola Screen: Patient negative for fever greater than or equal to 101.5 degrees Fahrenheit, and additional compatible Ebola Virus Disease symptoms Patient denies exposure to infectious person. Patient denies travel to an Ebola-affected area in the 21 days before illness onset. No symptoms or risks identified at this time. Initial Sepsis Screen: Does the patient meet any 2 criteria? No. Patient's initial sepsis screen is negative. Does the patient have a suspected source of infection? No. Patient's initial sepsis screen is negative. Risk Assessment: Do you want to hurt yourself or someone else? Patient reports no desire to harm self or others. Onset of symptoms is unknown. 16:43 Method Of Arrival: EMS: [facility] ab2 16:43 Acuity: ZHEN 4 ab2 Historical: - Allergies: 16:44 No Known Allergies; ab2 - PMHx: 16:44 Anxiety; diabetes mellitus; Hypertensive disorder; Hypothyroidism; ab2 - PSHx: 16:44 Thyroidectomy; ab2 - Immunization history:: Adult Immunizations up to date. - Social history:: Smoking status: Patient reports the use of cigarette tobacco products, smokes one pack cigarettes per day. Screenin:46 Abuse screen: Denies threats or abuse. Denies injuries from another. Nutritional ab2 screening: No deficits noted. Tuberculosis screening: No symptoms or risk factors identified. Fall Risk None identified. Assessment: 16:45 General: Appears in no apparent distress. comfortable, Behavior is calm, cooperative, ab2 appropriate for age. Pain: Denies pain. Neuro: Level of Consciousness is awake, alert, obeys commands, Oriented to person, place, time, situation, Appropriate for age University Manager are equal bilaterally Moves all extremities. Gait is steady, Speech is normal. Cardiovascular: Denies chest pain, shortness of breath, Heart tones S1 S2 present Patient's skin is warm and dry. Respiratory: Airway is patent Respiratory effort is even, unlabored, Respiratory pattern is regular, symmetrical, Breath sounds are clear bilaterally. GI: Abdomen is round non-distended, Bowel sounds present X 4 quads. Abd is soft and non tender Reports nausea, vomiting. : No deficits noted. No signs and/or symptoms were reported regarding the genitourinary system. EENT: No deficits noted. No signs and/or symptoms were reported regarding the EENT system. Derm: No deficits noted. No signs and/or symptoms reported regarding the dermatologic system. Skin is intact, is healthy with good turgor, Skin is pink, warm \T\ dry. Skin temperature is. 18:00 Reassessment: Patient appears in no apparent distress at this time. No changes from ab2 previously documented assessment. Pt ambulated to bathroom, denies any needs at this time. 19:30 Reassessment: Patient appears in no apparent distress at this time. No changes from ab2 previously documented assessment. Pt changed into gown and given warm blankets. Lights dimmed, denies any needs at this time. 20:30 Reassessment: Patient appears in no apparent distress at this time. Pt resting in bed ab2 with lights dimmed, denies any needs. 21:38 Reassessment: Patient appears in no apparent distress at this time. Pt c/o nausea. ab2 Vital Signs: 16:43 BP 158 / 80; Pulse 65; Resp 16; Temp 97.9(O); Pulse Ox 97% on R/A; Weight 86.18 kg; ab2 Height 5 ft. 7 in. (170.18 cm); Pain 0/10; 17:41 BP 180 / 94; Pulse 68; Resp 16; Pulse Ox 98% on R/A; ab2 18:30 BP 167 / 89; Pulse 67; Resp 16; Pulse Ox 99% on R/A; ab2 19:30 BP 196 / 100; Pulse 70; Resp 18; Pulse Ox 96% on R/A; ab2 20:15 BP 203 / 111; Pulse 71; Resp 18; Pulse Ox 97% on R/A; ab2 21:33 BP 188 / 96; Pulse 64; Resp 18; Pulse Ox 98% on R/A; ab2 21:54 BP 204 / 103; Pulse 71; Resp 18; Pulse Ox 96% on R/A; ab2 16:43 Body Mass Index 29.76 (86.18 kg, 170.18 cm) ab2 ED Course: 16:43 Patient arrived in ED. ab2 16:43 Ike Mauricio is Primary Nurse. ab2 16:44 Triage completed. ab2 16:46 Arm band placed on right wrist. ab2 16:46 Patient has correct armband on for positive identification. Bed in low position. Call ab2 light in reach. Side rails up X2. 16:46 No provider procedures requiring assistance completed. ab2 16:56 Diego Ang PA is PHCP. cp 16:56 Diego Ramirez MD is Attending Physician. cp 17:37 Inserted saline lock: 20 gauge in left antecubital area, using aseptic technique. Blood tp1 collected. 17:37 Basic Metabolic Panel Sent. tp1 17:37 CBC with Diff Sent. tp1 17:38 Hepatic Function Sent. tp1 17:38 Lipase Sent. tp1 18:57 XRAY Chest (1 view) In Process Unspecified. EDMS 19:27 Prince Purdy MD is Hospitalizing Provider. cp 20:53 Bryant cath inserted, using sterile technique, 18 Fr., by tx, balloon inflated, to ab2 gravity drainage, urine specimen collected. 20:53 Urine Sodium Random Sent. ab2 20:53 Urine Osmolality Sent. ab2 21:52 Uric Acid Sent. ab2 21:52 Thyroid Stimulating Hormone Sent. ab2 21:52 Uric Acid Sent. ab2 21:52 Cortisol Sent. ab2 21:53 TSH Sent. ab2 Administered Medications: 17:41 Drug: Zofran (Ondansetron) 4 mg Route: IVP; Site: right antecubital; ab2 21:53 Follow up: Response: No adverse reaction ab2 17:41 Drug: Pepcid (famotidine) 20 mg Route: IVP; Site: right antecubital; ab2 21:53 Follow up: Response: No adverse reaction ab2 21:44 Drug: hydrALAZINE 10 mg Route: IVP; Site: right antecubital; ab2 21:44 Drug: NS 0.9% 1000 ml Route: IV; Rate: 100 ml/hr; Site: right antecubital; ab2 23:50 Drug: Ativan (LORazepam) 0.5 mg Route: IVP; Site: left forearm; sm5 Outcome: 19:27 Decision to Hospitalize by Provider. carleen 05/10 07:32 Patient left the ED. iw Signatures: Dispatcher [employer] Therese Coello RN RN iw Diego Ang PA PA Madhavi Garcia tp1 Vivian Guzman RN RN sm5 Ike Mauricio ab2 Corrections: (The following items were deleted from the chart) 05/09 21:51 21:38 Reassessment: Pt c/o nausea ab2 ab2 21:51 18:00 Reassessment: Pt ambulated to bathroom, denies any needs at this time ab2 ab2
--- NOTE | 2021-05-09 20:44 | P.HP ---
Certification for Inpatient Patient admitted to: Inpatient With expected LOS: >2 Midnights Patient will require the following post-hospital care: None Practitioner: I am a practitioner with admitting privileges, knowledge of patient current condition, hospital course, and medical plan of care. Services: Services provided to patient in accordance with Admission requirements found in Title 42 Section 412.3 of the Code of Federal Regulations Patient History Date of Service: 05/09/21 Reason for admission: Hyponatremia History of Present Illness: 60-year-old female with history of diabetes mellitus type 2insulin- dependent, anxiety, hypertension, hypothyroidism and history of hyponatremia in the past presents emergency department for nausea and vomiting. Patient reports she been having nausea and vomiting over the course of the last 2 days and feeling dizzy/little bit confused today. Patient was evaluated here in the emergency department her labs were significant for sodium of 122 chloride of 86 glucose 167 CBC unremarkable. I discussed the case with nephrology who recommended additional tests which have been ordered as well as starting NS at 100 cc/h, repeat sodium in 4 hours. Bryant catheter for strict I's and O's. Will admit to the ICU for close monitoring given patient with mild confusion at this time. Allergies nitroglycerin Adverse Reaction (Verified 07/05/18 06:27) severe hypotension Home Medications: Benztropine Mesylate [Cogentin] 0.5 mg PO BEDTIME 03/10/21 Doxepin HCl [Sinequan] 50 mg PO BEDTIME 03/10/21 Levothyroxine Sodium [Synthroid] 137 mcg PO DAILY 03/10/21 Linaclotide [Linzess] 72 mcg PO DAILYPRN PRN 03/10/21 Losartan/Hydrochlorothiazide [Losartan-Hctz 100-25 mg Tab] 1 each PO DAILY 03/10/21 Metformin HCl [Glucophage] 500 mg PO BIDWM 03/10/21 Metoclopramide HCl [Reglan] 10 mg PO QID 03/10/21 OXcarbazepine [Trileptal] 2 tab PO DAILY AFTER SUPPER 03/10/21 OXcarbazepine [Trileptal] 600 mg PO DAILY 03/10/21 Omeprazole [Prilosec] 40 mg PO DAILY 03/10/21 Propranolol [Inderal] 10 mg PO BIDP PRN 03/10/21 Risperidone [Risperdal] 2 mg PO BID 03/10/21 Zolpidem Tartrate [Ambien] 10 mg PO BEDTIME 03/10/21 cloNIDine HCL [Catapres] 0.3 mg PO Q8HP PRN 03/10/21 clonazePAM [Klonopin] 1 mg PO TIDP PRN 03/10/21 ondansetron HCL [Zofran] 4 mg PO Q8HP PRN 03/10/21 - Past Medical/Surgical History Diabetic: No -: Hepatitis -: Anxiety -: HTN -: Hypothyroidism -: Alcoholic induced seizures -: Thyroidectomy -: Plastic surgery breast -: hernia repair Psychosocial/ Personal History: Patient lives at home with her mother - Family History Mother -: Hypertension, Diabetes, Cancer Notes: Thyroid, Knee replacement Father -: Heart disease, Hypertension, Diabetes - Social History Smoking Status: Never smoker Alcohol use: Yes CD- Drugs: No Caffeine use: Yes Place of Residence: Home Review of Systems 10-point ROS is otherwise unremarkable General: Weakness, Malaise Gastrointestinal: Nausea, Vomiting Neurological: Confusion, As per HPI Physical Examination - Physical Exam General: Alert, In no apparent distress, Oriented x3, Obese HEENT: Atraumatic, PERRLA, Mucous membr. moist/pink, EOMI, Sclerae nonicteric Neck: Supple, 2+ carotid pulse no bruit, No LAD, Without JVD or thyroid abnormality Respiratory: Clear to auscultation bilaterally, Normal air movement Cardiovascular: Regular rate/rhythm, Normal S1 S2 Capillary refill: <2 Seconds Gastrointestinal: Normal bowel sounds, No tenderness Musculoskeletal: No tenderness Integumentary: No rashes Neurological: Normal gait, Normal speech, Normal strength at 5/5 x4 extr, Normal tone, Normal affect, Other (Oriented x2 cannot tell me the year) - Studies Laboratory Data (last 24 hrs) 05/09/21 17:33: WBC 6.60, Hgb 13.1, Hct 37.7, Plt Count 135 L D 05/09/21 17:33: Sodium 122 L, Potassium 4.0, BUN 14, Creatinine 0.61, Glucose 167 H, Total Bilirubin 0.3, AST 33, ALT 43, Alkaline Phosphatase 116, Lipase 50 L Assessment and Plan - Plan Assessment: Metabolic encephalopathy secondary to hyponatremia Diabetes mellitus type 2insulin-dependent with hyperglycemia Hypertension Hypothyroidism Plan: Metabolic encephalopathy secondary to hyponatremia: Case was discussed with nephrology plan is to continue with NS at 100 cc/h for the next 4 hours, repeat chemistry in 4 hours after starting fluids. Additional labs recommended by nephrology are ordered including TSH, cortisol, uric acid, serum and urine osmol ality, urine sodium. Bryant catheter to be placed for strict I's and O's, neurochecks. Diabetes mellitus type 2insulin-dependent with hyperglycemia: [facility] Accu-Chek, sliding scale insulin. Hypertension: Obtain and continue medications as appropriate, may require as needed hydralazine/labetalol this evening. Noted to be hypertensive at this time. Hypothyroidism: Check TSH, obtain and continue medications as appropriate. Patient unsure of dose at this time. DVT PPX: Lovenox Code status: Full Discharge Plan: Home Plan to discharge in: 72 Hours - Advance Directives Does patient have a Living Will: No Does patient have a Durable POA for Healthcare: No - Code Status/Comfort Care Code Status Assessed: Yes (Full) Critical Care: No Time Spent Managing Pts Care (In Minutes): 55
[2021-05-09 20:50] LABS: Urine Blood Trace-intact (Negative); Urine Glucose Negative (Negative); Urine Protein Negative (Negative)
[2021-05-09 20:56] LABS: Magnesium 1.9 mg/dL (1.8-2.4)
[2021-05-09 20:57] LABS: Troponin High Sensitivity < 3.00 pg/mL (<58.9)
[2021-05-09 21:05] LABS: Blood Morphology Comment NOT SEEN (NOT SEEN); Platelet Estimate ADEQ; White Blood Cell Scan OK (OK)
[2021-05-09 22:38] LABS: Uric Acid 2.2 mg/dL (2.6-6.0)
[2021-05-09 22:39] LABS: Thyroid Stimulating Hormone 11.2 uIU/mL (0.360-3.740)
[2021-05-09] MEDS ORDERED: LORazepam 2 MG/ML VIAL ONE (23:25)
[2021-05-09] MEDS ORDERED: NA CHLORIDE 0.9% 1,000 ML IV SCH (23:43)
[2021-05-09] MEDS ORDERED: ONDANSETRON 4 MG/2 ML VIAL IV PRN (23:43)
[2021-05-09] MEDS ORDERED: INSULIN -REGULAR HUMAN 50 UNIT/0.5 ML ML SQ SCH (23:43)
[2021-05-10 00:03] VITALS: BMI 29.7
[2021-05-10] MEDS ORDERED: ONDANSETRON 4 MG/2 ML VIAL ONE (01:32)
[2021-05-10 01:44] LABS: BUN Blood Urea Nitrogen 10 mg/dL (7-18); Bicarbonate 27 mmol/L (21-32); Glucose Level 129 mg/dL (74-106); Potassium 3.6 mmol/L (3.5-5.1); Sodium Level 123 mmol/L (136-145)
[2021-05-10] MEDS ORDERED: MORPHINE 2 MG/ML SYR IV PRN (03:24)
[2021-05-10] MEDS ORDERED: MORPHINE 4 MG/ML SYR ONE (03:30)
[2021-05-10 06:10] LABS: Absolute Lymphocytes (CBC) 2.1 K/uL (0.7-4.9); Hematocrit 37.5 % (36.0-45.0); Lymphocytes % 27.6 % (15.3-44.8); MPV 6.8 fL (7.6-11.3); RBC Red Blood Cell Count 4.12 M/uL (3.86-4.86)
[2021-05-10 06:20] VITALS: BP 177/79
[2021-05-10 06:31] LABS: BUN Blood Urea Nitrogen 7 mg/dL (7-18); Bicarbonate 27 mmol/L (21-32); Glucose Level 140 mg/dL (74-106); HDL Cholesterol 58 mg/dL (40-60); LDL Cholesterol, Calculated 216 (<130); Magnesium 1.9 mg/dL (1.8-2.4); Potassium 3.4 mmol/L (3.5-5.1); Sodium Level 122 mmol/L (136-145)
[2021-05-10 08:28] VITALS: TEMP 97.9
[2021-05-10 08:37] VITALS: O2SAT 96
[2021-05-10] MEDS ORDERED: ENOXAPARIN 40 MG/0.4 ML SQ SCH (09:00)
--- NOTE | 2021-05-10 11:32 | EKG ---
Test Date: 2021-05-09 Test Time: 19:01:35 Car Repairer: MEASUREMENT RESULTS: Intervals: Rate: 73 MT: 180 QRSD: 92 QT: 398 QTc: 438 Thayne: P: 49 MT: 180 QRS: 113 T: 19 INTERPRETIVE STATEMENTS: Normal sinus rhythm Left posterior fascicular block Abnormal ECG Compared to ECG 04/06/2021 19:54:06 Left posterior fascicular block now present Electronically Signed On 05-10-21 11:29:01 [employer] TESTER by Daniel Cespedes
--- NOTE | 2021-05-10 16:06 | P.DS ---
Admission Date: 05/09/21 Discharge Date: 05/10/21 Disposition: AMA-LEFT AGAINST MEDICAL ADVIC Reason for Admission: Hyponatremia Hospital Course: Overnight with hyponatremia after she presented with nausea and vomiting. She decided to leave AMA before I could evaluate her. Vital Signs/Physical Exam: Temp Pulse Resp BP Pulse Ox 97.9 F 86 19 177/79 H 97 05/09/21 16:43 05/10/21 04:00 05/10/21 04:00 05/10/21 04:00 05/10/21 04:00 Laboratory Data at Discharge: WBC 7.70 K/uL (4.3-10.9) D 05/10/21 05:55 Hgb 13.0 g/dL (12.0-15.0) 05/10/21 05:55 Hct 37.5 % (36.0-45.0) 05/10/21 05:55 Plt Count 286 K/uL (152-406) D 05/10/21 05:55 Sodium Cancelled 05/10/21 13:00 Potassium Cancelled 05/10/21 13:00 BUN Cancelled 05/10/21 13:00 Creatinine Cancelled 05/10/21 13:00 Glucose Cancelled 05/10/21 13:00 Uric Acid 2.2 mg/dL (2.6-6.0) L 05/09/21 21:50 Magnesium 1.9 mg/dL (1.8-2.4) 05/10/21 05:55 Total Bilirubin 0.3 mg/dL (0.2-1.0) 05/09/21 17:33 AST 33 U/L (15-37) 05/09/21 17:33 ALT 43 U/L (12-78) 05/09/21 17:33 Alkaline Phosphatase 116 U/L (45-117) 05/09/21 17:33 Triglycerides 148 mg/dL (<150) 05/10/21 05:55 Cholesterol 304 mg/dL (<200) H 05/10/21 05:55 HDL Cholesterol 58 mg/dL (40-60) 05/10/21 05:55 Cholesterol/HDL Ratio 5.24 05/10/21 05:55 Lipase 50 U/L (73-393) L 05/09/21 17:33 Home Medications: Benztropine Mesylate [Cogentin] 0.5 mg PO BEDTIME 03/10/21 Doxepin HCl [Sinequan] 50 mg PO BEDTIME 03/10/21 Levothyroxine Sodium [Synthroid] 137 mcg PO DAILY 03/10/21 Linaclotide [Linzess] 72 mcg PO DAILYPRN PRN 03/10/21 Losartan/Hydrochlorothiazide [Losartan-Hctz 100-25 mg Tab] 1 each PO DAILY 03/10/21 Metformin HCl [Glucophage] 500 mg PO BIDWM 03/10/21 Metoclopramide HCl [Reglan] 10 mg PO QID 03/10/21 OXcarbazepine [Trileptal] 2 tab PO DAILY AFTER SUPPER 03/10/21 OXcarbazepine [Trileptal] 600 mg PO DAILY 03/10/21 Omeprazole [Prilosec] 40 mg PO DAILY 03/10/21 Propranolol [Inderal] 10 mg PO BIDP PRN 03/10/21 Risperidone [Risperdal] 2 mg PO BID 03/10/21 Zolpidem Tartrate [Ambien] 10 mg PO BEDTIME 03/10/21 cloNIDine HCL [Catapres] 0.3 mg PO Q8HP PRN 03/10/21 clonazePAM [Klonopin] 1 mg PO TIDP PRN 03/10/21 ondansetron HCL [Zofran] 4 mg PO Q8HP PRN 03/10/21 Followup: Unknown,U [Primary Care Provider] -
== END 2021-05-10 07:34 | disposition left against medical advice (07) | DRG 640 ==
LOC: ER 16:34 → ERHOLD 20:40
PROVIDERS: ADMIT Internal Medicine; ATTEND Internal Medicine
DX: E87.1 Hypo-osmolality and hyponatremia (principal); G93.41 Metabolic encephalopathy; E11.65 Type 2 diabetes mellitus with hyperglycemia; I10 Essential (primary) hypertension; E03.9 Hypothyroidism, unspecified; F17.210 Nicotine dependence, cigarettes, uncomplicated; T42.1X5A Adverse effect of iminostilbenes, initial encounter; Z79.4 Long term (current) use of insulin; Z88.8 Allergy status to other drugs, medicaments and biological substances; Z79.890 Hormone replacement therapy; Z53.29 Procedure and treatment not carried out because of patient's decision for other reasons; Z79.899 Other long term (current) drug therapy; Z79.84 Long term (current) use of oral hypoglycemic drugs; Z20.822 Contact with and (suspected) exposure to COVID-19
CPT/HCPCS: 36415; 51702; 71045; 80048; 80061; 80076; 81003; 82533; 82947; 83690; 83735; 83930; 83935; 84300; 84439; 84443; 84484; 84550; 85025; 93005; 99284; J2405; U0003

== ENCOUNTER 2021-05-29 11:14 | Emergency (ER) | payer OTHER ==
--- OUTSIDE RECORDS SUMMARY | 2021-05-29 11:17 | XMS REPORT | Continuity of Care Document ---
:1960 Author Organization [facility] t Address [address] [place] [address] Care Team Providers Name Role Phone Sharpless Primary Care Physician RADHA SIMPSON Attending Clinician Unavailable RADHA SIMPSON Attending Clinician Unavailable Doctor Unassigned, Name Attending Clinician Unavailable RAGHU Attending Clinician Unavailable Nazanin CLARK A Attending Clinician Payers Payer Name Policy Type Policy Number Effective Date Expiration Date S [facility] STAR [id number] 2017 00:00:00 PLUS Problems This patient has no known problems. Allergies, Adverse Reactions, Alerts Allergy Allergy Status Severity Reaction(s) Onset Inactive Treating Comm ents Source Name Type Date Date Clinician NITRO DRUG Active Other-Cmnt 2019-0 Univer s TRANSDER 07-27 ity of MAL 00:00: [address] Branch ACETAMIN DRUG Active Other-Cmnt 2019-0 Univ ers OPHEN INGREDI 07-27 ity of 00:00: [address] Social History Social Habit Start Date Stop Date Quantity Comments Source Sex Assigned At [facility] Alcohol intake 2016-05-01 2016-05-01 Current [facility] 00:00:00 00:00:00 non-drinker of Medical nter alcohol (finding) Smoking Status Start Date Stop Date Source Current every day smoker 2016-05-01 00:00:00 [facility] Medications Ordered Filled Start Stop Current Ordering Indication Dosage Frequency Signature Comments Components Source Medication Medication Date Date Medication? Clinician (SIG) Name Name OXcarbazepi Yes 600mg [id number] Take [address] ne 2-23 [id number] [facility] - (TRILEPTAL) 10:23: 3D [...] Department ID 2020-08-03 2020-08-03 Outpatient MATT VÁSQUEZ [facility] [id number] Univers 10:00:00 10:00:00 MATT SIMPSON [id number] [facility] 2020-08-03 2020-08-03 Outpatient MATT VÁSQUEZ [facility] [id number] Univers 10:00:00 10:00:[address] [facility] 2020-07-25 2020-07-25 Orders Doctor ABE [id number] 00:00:00 00:00:00 Only Unassigned, BK [id number] [place] [facility] [id number] 2019-09-26 2019-09-26 Outpatient Bertin KRISHNAMURTHY [facility] [id number] Univers 16:00:00 16:00:[address] [facility] 2019-09-26 2019-09-26 [facility] [id number] Univers 16:00:00 16:00:00 WALLY yeager [facility] 2018-10-21 2018-10-21 Telephone [facility], [facility] [id number] 00:00:00 00:00:00 Natacha Nguyen [id number] [facility] [id number] [facility] [phone] [facility] 204 [facility] Results This patient has no known results.
[2021-05-29] MEDS ORDERED: MORPHINE 4 MG/ML SYR ONE (12:43)
[2021-05-29] MEDS ORDERED: NA CHLORIDE 0.9% 1,000 ML ONE (12:43)
[2021-05-29 12:46] LABS: Absolute Lymphocytes (CBC) 1.7 K/uL (0.7-4.9); Hematocrit 36.9 % (36.0-45.0); Lymphocytes % 29.9 % (15.3-44.8); MPV 6.9 fL (7.6-11.3); RBC Red Blood Cell Count 3.92 M/uL (3.86-4.86)
--- NOTE | 2021-05-29 12:49 | RAD REPORT ---
EXAM DESCRIPTION: RAD - Chest Single View - 05/29/2021 12:19 pm CLINICAL HISTORY: COUGH, chest pain COMPARISON: Portable 05/09/2021 TECHNIQUE: AP portable chest image was obtained 05/29/2021 12:19 pm . FINDINGS: No focal lung parenchymal process identified. Interstitial pattern is similar to compariso n. No failure or volume overload seen. Heart and vasculature are normal. No measurable pleural effusion and no pneumothorax. No acute bony abnormality seen. Old postsurgical changes are present to the lateral left clavicle. No acute aortic findings suspected. IMPRESSION: No acute cardiopulmonary process. No significant change from comparison study.
[2021-05-29 13:07] LABS: BUN Blood Urea Nitrogen 16 mg/dL (7-18); Bicarbonate 30 mmol/L (21-32); Creatine Phosphokinase 233 U/L (26-192); Glucose Level 209 mg/dL (74-106); Potassium 3.6 mmol/L (3.5-5.1); Sodium Level 137 mmol/L (136-145)
[2021-05-29 13:42] LABS: SARS-COV-2 RT PCR NEGATIVE (NEGATIVE)
[2021-05-29 14:13] LABS: Urine Blood Negative (Negative); Urine Glucose Trace (Negative); Urine Protein Negative (Negative); Urine Specific Gravity 1.025 (1.005-1.030)
--- NOTE | 2021-05-29 15:52 | EDPHYS ---
Physician Documentation [facility] Name: Jaimie Amanda Age: 60 yrs Sex: Female : 1960 Arrival Date: 05/29/2021 Time: 11:17 Bed 15 Private MD: ED Physician Villa Byrd HPI: 05/29 12:46 This 60 yrs old Female presents to ER via Ambulatory with complaints of Pain All Over. rn 12:46 Pt reports "pain all over". . rn 12:51 Onset: The symptoms/episode began/occurred 3 day(s) ago. Severity of symptoms: At their rn worst the symptoms were moderate in the emergency department the symptoms are unchanged. The patient has experienced similar episodes in the past. The patient has not recently seen a physician. Pt reports "feels sick" and "has pain all over", for 3-4 days. No fever. Reports muscles hurting in back and legs/arms. Reports mild congestion/cough, thinks might have a urine infection. No vomiting. No diarrhea. No blood in stool. . Historical: - Allergies: 11:33 No Known Allergies; ab2 - PMHx: 11:33 Anxiety; diabetes mellitus; Hypertensive disorder; Hypothyroidism; ab2 - PSHx: 11:33 Thyroidectomy; ab2 - Immunization history:: Adult Immunizations up to date. - Social history:: Smoking status: Patient reports the use of cigarette tobacco products, smokes one-half pack cigarettes per day. - Family history:: not pertinent. - Hospitalizations: : No recent hospitalization is reported. ROS: 12:51 Constitutional: Negative for fever, chills, and weight loss, Eyes: Negative for injury, rn pain, redness, and discharge, ENT: + congestion Neck: Negative for injury, pain, and swelling, Cardiovascular: Negative for chest pain, palpitations, and edema, Respiratory: Negative for shortness of breath, wheezing, and pleuritic chest pain, Abdomen/GI: Negative for vomiting, diarrhea Back: Negative for injury and pain, MS/Extremity: Negative for injury and deformity, Skin: Negative for injury, rash, and discoloration, Neuro: Negative for headache, numbness, tingling, and seizure. Exam: 12:51 Constitutional: This is a well developed, well nourished patient who is awake, alert, rn seems very anxious Head/Face: Normocephalic, atraumatic. Eyes: Periorbital areas with no swelling, redness, or edema. ENT: dry MM Cardiovascular: Regular rate and rhythm. No pulse deficits. Respiratory: No increased work of breathing, no retractions or nasal flaring. Abdomen/GI: Soft, non-tender, with normal bowel sounds. No distension or tympany. No guarding or rebound. No evidence of tenderness throughout. Skin: Warm, dry MS/ Extremity: Pulses equal, no cyanosis. Neuro: Awake and alert, GCS 15, oriented to person, place, time, and situation. Cranial nerves II-XII grossly intact. Motor strength 5/5 in all extremities. Sensory grossly intact. Vital Signs: 11:32 BP 146 / 89; Pulse 99; Resp 16; Temp 98.4(TE); Pulse Ox 97% on R/A; Weight 72.57 kg; ab2 Height 5 ft. 7 in. (170.18 cm); Pain 10/10; 13:44 BP 160 / 86; Pulse 89; Resp 16; Pulse Ox 98% ; cb5 15:40 BP 145 / 77; Pulse 78; Resp 16; Temp 98.6; Pulse Ox 97% ; Pain 0/10; cb5 11:32 Body Mass Index 25.06 (72.57 kg, 170.18 cm) ab2 MDM: 11:43 Patient medically screened. rn 12:56 Differential Diagnosis. rn 15:25 Data reviewed: vital signs, nurses notes, lab test result(s), radiologic studies, plain rn films, and as a result, I will discharge patient. Counseling: I had a detailed discussion with the patient and/or guardian regarding: the historical points, exam findings, and any diagnostic results supporting the discharge/admit diagnosis, lab results, radiology results, the need for outpatient follow up, to return to the emergency department if symptoms worsen or persist or if there are any questions or concerns that arise at home. Response to treatment: the patient's symptoms have mildly improved after treatment, and as a result, I will discharge patient. Special discussion: I discussed with the patient/guardian in detail that at this point there is no indication for admission to the hospital. It is understood, however, that if the symptoms persist or worsen the patient needs to return immediately for re-evaluation. ED course: No acute findings in bloodwork or cxr, no oxygen requirement, ambulatory, feels better after only fluids, will dc home with return precautions.. 05/29 11:47 Order name: CBC with Diff; Complete Time: 12:56 rn 05/29 11:47 Order name: Basic Metabolic Panel; Complete Time: 14:02 rn 05/29 11:47 Order name: Procalcitonin; Complete Time: 14:02 rn 05/29 11:47 Order name: Blood Culture Adult (2) rn 05/29 11:47 Order name: COVID-19/FLU A+B (Document "Date of Onset" if Symptomatic); Complete Time: rn 14:02 05/29 11:47 Order name: IV Start; Complete Time: 12:38 rn 05/29 11:47 Order name: XRAY Chest (1 view); Complete Time: 12:56 05/29 11:48 Order name: Strep; Complete Time: 14:02 05/29 11:48 Order name: CK; Complete Time: 14:02 05/29 13:16 Order name: Throat Culture [facility] 05/29 14:14 Order name: Urine Dipstick-Ancillary; Complete Time: 15:25 [facility] 05/29 11:47 Order name: Urine Dipstick-Ancillary (obtain specimen) rn Administered Medications: 12:25 Drug: NS 0.9% 1000 ml Route: IV; Rate: 1000 ml; Site: right antecubital; cb5 12:30 Drug: morphine 4 mg Route: IVP; Site: right antecubital; cb5 Disposition Summary: 05/29/21 15:26 Discharge Ordered Location: Home rn Problem: new rn Symptoms: have improved rn Condition: Stable rn Diagnosis - Myalgia rn - Person with feared health complaint in whom no diagnosis is made rn Followup: rn - With: Private Physician - When: As needed - Reason: Recheck today's complaints, Re-evaluation by your physician Forms: - Medication Reconciliation Form rn - Thank You Letter rn - Antibiotic lead burner helper - Prescription Opioid Use rn Signatures: Dispatcher [employer] Villa Villanueva MD MD rn Boman, Colleen RN RN cb5 Ike Mauricio Corrections: (The following items were deleted from the chart) 12:57 12:51 Constitutional: This is a well developed, well nourished patient who is awake, rn alert, seems very anxious Head/Face: Normocephalic, atraumatic. Eyes: Periorbital areas with no swelling, redness, or edema. ENT: dry MM Cardiovascular: Regular rate and rhythm. No pulse deficits. Respiratory: No increased work of breathing, no retractions or nasal flaring. Abdomen/GI: Soft, non-tender, with normal bowel sounds. No distension or tympany. No guarding or rebound. No evidence of tenderness throughout. rn
--- NOTE | 2021-05-29 15:52 | ER ---
Nurse's Notes [facility] Name: Jaimie Amanda Age: 60 yrs Sex: Female : 1960 Arrival Date: 05/29/2021 Time: 11:17 Bed 15 Private MD: Diagnosis: Myalgia;Person with feared health complaint in whom no diagnosis is made Presentation: 05/29 11:32 Chief complaint: Patient states: "I am real sick, I have pain all over." Pt denies ab2 n/v/d, chest pain and SOB. Coronavirus screen: Vaccine status: Patient reports receiving the 2nd dose of the covid vaccine. Client denies travel out of the [place] in the last 14 days. At this time, the client does not indicate any symptoms associated with coronavirus-19. Ebola Screen: Patient negative for fever greater than or equal to 101.5 degrees Fahrenheit, and additional compatible Ebola Virus Disease symptoms Patient denies exposure to infectious person. Patient denies travel to an Ebola-affected area in the 21 days before illness onset. No symptoms or risks identified at this time. Initial Sepsis Screen: Does the patient meet any 2 criteria? No. Patient's initial sepsis screen is negative. Does the patient have a suspected source of infection? No. Patient's initial sepsis screen is negative. Risk Assessment: Do you want to hurt yourself or someone else? Patient reports no desire to harm self or others. Onset of symptoms is unknown. 11:32 Method Of Arrival: Ambulatory ab2 11:53 Acuity: ZHEN 3 ab2 Triage Assessment: 11:34 General: Appears in no apparent distress. comfortable, Behavior is calm, cooperative, ab2 appropriate for age. Pain: Complains of pain in whole body. Cardiovascular: Denies chest pain, shortness of breath. GI: Patient currently denies diarrhea, nausea, vomiting. Historical: - Allergies: 11:33 No Known Allergies; ab2 - PMHx: 11:33 Anxiety; diabetes mellitus; Hypertensive disorder; Hypothyroidism; ab2 - PSHx: 11:33 Thyroidectomy; ab2 - Immunization history:: Adult Immunizations up to date. - Social history:: Smoking status: Patient reports the use of cigarette tobacco products, smokes one-half pack cigarettes per day. - Family history:: not pertinent. - Hospitalizations: : No recent hospitalization is reported. Screenin:40 Abuse screen: Denies threats or abuse. Denies injuries from another. Nutritional cb5 screening: No deficits noted. Tuberculosis screening: No symptoms or risk factors identified. 11:40 Fall Risk None identified. cb5 Assessment: 11:40 General: Appears uncomfortable, unkempt, Behavior is restless. Pain: Complains of pain cb5 in generalied. Neuro: Level of Consciousness is awake, alert, obeys commands, lethargic, Oriented to person, place, time, situation, Appropriate for age. Cardiovascular: No deficits noted. Respiratory: No deficits noted. GI: No deficits noted. : No deficits noted. EENT: No deficits noted. Derm: No deficits noted. Musculoskeletal: No deficits noted. 13:00 Pain: Pain currently is 3 out of 10 on a pain scale. cb5 13:30 Reassessment: Patient and/or family updated on plan of care and expected duration. Pain cb5 level reassessed. 14:30 Reassessment: Patient and/or family updated on plan of care and expected duration. Pain cb5 level reassessed. Vital Signs: 11:32 BP 146 / 89; Pulse 99; Resp 16; Temp 98.4(TE); Pulse Ox 97% on R/A; Weight 72.57 kg; ab2 Height 5 ft. 7 in. (170.18 cm); Pain 10/10; 13:44 BP 160 / 86; Pulse 89; Resp 16; Pulse Ox 98% ; cb5 15:40 BP 145 / 77; Pulse 78; Resp 16; Temp 98.6; Pulse Ox 97% ; Pain 0/10; cb5 11:32 Body Mass Index 25.06 (72.57 kg, 170.18 cm) ab2 ED Course: 11:17 Patient arrived in ED. kz 11:33 Triage completed. ab2 11:34 Arm band placed on left wrist. ab2 11:40 Call light in reach. Side rails up X 1. cb5 11:43 Villa Byrd MD is Attending Physician. rn 12:05 Lisa Miller, CATY is Primary Nurse. cb5 12:21 XRAY Chest (1 view) In Process Unspecified. EDMS 12:37 Procalcitonin Sent. cb5 12:37 Blood Culture Adult (2) Sent. cb5 12:37 Basic Metabolic Panel Sent. cb5 12:37 CBC with Diff Sent. cb5 12:38 CK Sent. cb5 12:38 COVID-19/FLU A+B (Document "Date of Onset" if Symptomatic) Sent. cb5 12:55 Strep Sent. cb5 16:00 IV discontinued. cb5 Administered Medications: 12:25 Drug: NS 0.9% 1000 ml Route: IV; Rate: 1000 ml; Site: right antecubital; cb5 12:30 Drug: morphine 4 mg Route: IVP; Site: right antecubital; cb5 Outcome: 15:26 Discharge ordered by . rn 16:01 Discharged to home cb5 16:01 Condition: stable 16:01 Discharge instructions given to patient. 16:01 Patient left the ED. cb5 Addendum: 06/03/2021 11:23 Addendum: Culture Results: Positive blood culture. No further action required. Other: a a5 Per Diego Ramirez. Signatures: Dispatcher [employer] EDMS Villa Byrd MD MD rn Calderon, Audri RN RN [email or web address] Lisa Miller RN RN cb5 Ike Mauricio Kelly kz Corrections: (The following items were deleted from the chart) 05/29 11:53 11:32 Acuity: ZHEN 4 ab2 ab2
[2021-05-29 16:52] VITALS: BP 145/77; TEMP 98.6; O2SAT 97
== END 2021-05-29 16:01 | disposition home or self-care (01) ==
LOC: ER 11:14
DX: M79.10 Myalgia, unspecified site (principal); Z71.1 Person with feared health complaint in whom no diagnosis is made; I10 Essential (primary) hypertension; F17.210 Nicotine dependence, cigarettes, uncomplicated; Z20.822 Contact with and (suspected) exposure to COVID-19
CPT/HCPCS: 87040 ×2; 87070; 85025; 80048; 36415; 82550; 87205 ×3; 87081; 87077 ×2; 87186 ×2; 81003; 84145; 0240U; 71045; 96374; 99283; J7030

== ENCOUNTER 2021-05-30 13:16 | Emergency (ER) | payer OTHER ==
--- OUTSIDE RECORDS SUMMARY | 2021-05-30 13:19 | XMS REPORT | Continuity of Care Document ---
:1960 Author Organization [facility] t Address [address] [place] [address] Care Team Providers Name Role Phone Sharpless Primary Care Physician RADHA SIMPSON Attending Clinician Unavailable RADHA SIMPSON Attending Clinician Unavailable Doctor Unassigned, Name Attending Clinician Unavailable RAGHU Attending Clinician Unavailable Nazanin CLARK A Attending Clinician Payers Payer Name Policy Type Policy Number Effective Date Expiration Date S [facility] STAR [id number] 2017 00:00:00 PLUS Problems This patient has no known problems. Allergies, Adverse Reactions, Alerts Allergy Allergy Status Severity Reaction(s) Onset Inactive Treating Comm ents Source Name Type Date Date Clinician NITRO DRUG Active Other-Cmnt 2019-0 Univer s TRANSDER 07-27 ity of MAL 00:00: [address] [place] ACETAMIN DRUG Active Other-Cmnt 2019-0 Univ ers OPHEN INGREDI 07-27 ity of 00:00: [address] Social History Social Habit Start Date Stop Date Quantity Comments Source Sex Assigned At [facility] Alcohol intake 2016-05-01 2016-05-01 Current [facility] 00:00:00 00:00:00 non-drinker of Medical nter alcohol (finding) Smoking Status Start Date Stop Date Source Current every day smoker 2016-05-01 00:00:00 [facility] Medications Ordered Filled Start Stop Current Ordering Indication Dosage Frequency Signature Comments Components Source Medication Medication Date Date Medication? Clinician (SIG) Name Name OXcarbazepi Yes 600mg [id number] Take [address] ne 2-23 [id number] [facility] by [facility] - (TRILEPTAL) 10:23: 3D [...] Department ID 2020-08-03 2020-08-03 Outpatient MATT VÁSQUEZ [facility] [id number] Univers 10:00:00 10:00:00 MATT SIMPSON [id number] [facility] 2020-08-03 2020-08-03 Outpatient MATT VÁSQUEZ [facility] [id number] Univers 10:00:00 10:00:00 MATT SIMPSON [facility] 2020-07-25 2020-07-25 Orders Doctor ABE [id number] 00:00:00 00:00:00 Only Unassigned, BK [id number] [place] [facility] [id number] 2019-09-26 2019-09-26 Outpatient Bertin KRISHNAMURTHY [facility] [id number] Univers 16:00:00 16:00:00 WALLY [facility] 2019-09-26 2019-09-26 [facility] [id number] Univers 16:00:00 16:00:00 WALLY yeager [facility] 2018-10-21 2018-10-21 Telephone [facility], [facility] [id number] 00:00:00 00:00:00 Natacha Nguyen [id number] dAe [id number] [facility] [id number] [facility] 204 [facility] Results This patient has no known results.
[2021-05-30 14:48] LABS: Absolute Lymphocytes (CBC) 2.4 K/uL (0.7-4.9); Hematocrit 35.8 % (36.0-45.0); Lymphocytes % 27.9 % (15.3-44.8); MPV 6.8 fL (7.6-11.3); RBC Red Blood Cell Count 3.87 M/uL (3.86-4.86)
[2021-05-30 14:58] LABS: BUN Blood Urea Nitrogen 10 mg/dL (7-18); Bicarbonate 28 mmol/L (21-32); Glucose Level 185 mg/dL (74-106); Potassium 3.7 mmol/L (3.5-5.1); Sodium Level 137 mmol/L (136-145)
--- NOTE | 2021-05-30 14:58 | RAD REPORT ---
EXAM DESCRIPTION: RAD - Chest Single View - 05/30/2021 2:50 pm CLINICAL HISTORY: Hurting all over, chest pain COMPARISON: Portable 05/29/2021 TECHNIQUE: AP portable chest image was obtained 05/30/2021 2:50 pm . FINDINGS: Lungs are clear. Interstitial pattern is similar to comparison. No new or progressive lung parenchymal finding. Heart and vasculature are normal. No measurable pleural effusion and no pneumothorax. No acute bony abnormality seen. No acute aortic findings suspected. IMPRESSION: No acute cardiopulmonary process. No significant change from comparison study.
--- NOTE | 2021-05-30 15:47 | RAD REPORT ---
EXAM DESCRIPTION: CTAbdomen Pelvis W Contrast - 05/30/2021 3:40 pm CLINICAL HISTORY: Abdominal pain. ABD PAIN COMPARISON: Abdomen Pelvis W Contrast dated 04/29/2021; Abdomen Pelvis W Contrast dated 04/25/2021 ; Abdomen Pelvis W Contrast dated 04/21/2021; Abdomen Pelvis W Contrast dated 04/06/2021 TECHNIQUE: Biphasic CT imaging of the abdomen and pelvis was performed with 100 ml non-ionic IV cont rast. All CT scans are performed using dose optimization technique as appropriate and may include automated exposure control or mA/KV adjustment according to patient size. FINDINGS: The lung bases are clear. Mild fatty liver is present. Small low-density lesions in the left lobe of the liver are likely benig n. No biliary dilatation. Small hiatal hernia. The spleen, pancreas, adrenal glands and kidneys are within normal limits. No bowel obstruction, free air, free fluid or abscess. The appendix is normal. No evidence of signi ficant lymphadenopathy. Small bilateral fat containing inguinal hernias. Mild lumbar degenerative changes. IMPRESSION: No acute intra-abdominal or pelvic finding.
[2021-05-30] MEDS ORDERED: KETOROLAC 30 MG/ML INJ ONE (16:29)
--- NOTE | 2021-05-30 17:00 | ER ---
Nurse's Notes [facility] Name: Jaimie Amanda Age: 60 yrs Sex: Female : 1960 Arrival Date: 05/30/2021 Time: 13:17 Bed 18 Private MD: Diagnosis: Abdominal pain, Generalized;Lower abdominal pain, unspecified;Generalized Pain;Myalgia Presentation: 05/30 13:28 Chief complaint: Patient states: Still has pain all over since her visit here ll1 yesterday. Coronavirus screen: Vaccine status: Patient reports receiving the 2nd dose of the covid vaccine. Client denies travel out of the [place] in the last 14 days. At this time, the client does not indicate any symptoms associated with coronavirus-19. Ebola Screen: Patient denies travel to an Ebola-affected area in the 21 days before illness onset. Initial Sepsis Screen: Does the patient meet any 2 criteria? No. Patient's initial sepsis screen is negative. Does the patient have a suspected source of infection? No. Patient's initial sepsis screen is negative. Risk Assessment: Do you want to hurt yourself or someone else? Patient reports no desire to harm self or others. Onset of symptoms was May 29, 2021. 13:28 Method Of Arrival: Wheelchair ll1 13:28 Acuity: ZHEN 4 ll1 Triage Assessment: 13:29 General: Appears uncomfortable, ill, Behavior is cooperative, appropriate for age, ll1 crying. Pain: Complains of pain in all over. Musculoskeletal: Reports pain in all over. Historical: - Allergies: 13:29 Nitroglycerin; ll1 - PMHx: 13:29 Anxiety; diabetes mellitus; Hypertensive disorder; Hypothyroidism; ll1 - PSHx: 13:29 Thyroidectomy; ll1 - Immunization history:: Client reports receiving the 2nd dose of the Covid vaccine. - Social history:: Smoking status: Patient reports the use of cigarette tobacco products, smokes one-half pack cigarettes per day. Screenin:50 Abuse screen: Denies threats or abuse. Nutritional screening: No deficits noted. aa5 Tuberculosis screening: No symptoms or risk factors identified. Fall Risk None identified. Assessment: 13:50 General: Appears comfortable, Behavior is calm, cooperative. Pain: Complains of pain in aa5 right upper quadrant, left upper quadrant, right lower quadrant and left lower quadrant Pain currently is 10 out of 10 on a pain scale. Quality of pain is described as sharp, Pain began 2-3 days ago. Is continuous. Neuro: Level of Consciousness is awake, alert, obeys commands, Oriented to person, place, time, situation. Cardiovascular: Patient's skin is warm and dry. Respiratory: Airway is patent Respiratory effort is even, unlabored, Respiratory pattern is regular, symmetrical. GI: Abdomen is round non-distended, Bowel sounds present X 4 quads. Abd is soft and non tender X 4 quads. Patient currently denies diarrhea, nausea, vomiting. : No signs and/or symptoms were reported regarding the genitourinary system. EENT: No signs and/or symptoms were reported regarding the EENT system. Derm: Skin is pink, warm \T\ dry. Musculoskeletal: Range of motion: intact in all extremities. 14:28 Reassessment: Patient is alert, oriented x 3, equal unlabored respirations, skin aa5 warm/dry/pink. Notified of wait time for results. . 16:50 Reassessment: Patient is alert, oriented x 3, equal unlabored respirations, skin aa5 warm/dry/pink. Patient states feeling better. Vital Signs: 13:28 BP 158 / 85; Pulse 88; Resp 17; Temp 97.9; Pulse Ox 96% on R/A; Weight 74.84 kg; Height ll1 5 ft. 7 in. (170.18 cm); Pain 10/10; 15:21 BP 144 / 69; Pulse 72; Resp 21; Pulse Ox 95% on R/A; dh3 16:25 BP 154 / 76; Pulse 63; Resp 18; Pulse Ox 100% ; dw3 13:28 Body Mass Index 25.84 (74.84 kg, 170.18 cm) ll1 ED Course: 13:17 Patient arrived in ED. am2 13:28 Arm band placed on Patient placed in an exam room, on a stretcher. ll1 13:29 Triage completed. ll1 13:50 Patient has correct armband on for positive identification. Bed in low position. Call aa5 light in reach. Side rails up X2. 14:00 Bhavna Corado RN is Primary Nurse. aa5 14:03 Tera Raymond MD is Attending Physician. kdr 14:28 Initial lab(s) drawn, by dc, sent to lab. Inserted saline lock: 20 gauge in right 3 antecubital area, using aseptic technique. Blood collected. 14:52 XRAY Chest (1 view) In Process Unspecified. EDMS 15:08 EKG done, by ED staff, reviewed by Tera Raymond MD. 3 15:42 CT Abd/Pelvis - IV Contrast Only In Process Unspecified. EDMS 17:03 No provider procedures requiring assistance completed. IV discontinued, intact, ss bleeding controlled, No redness/swelling at site. Pressure dressing applied. Administered Medications: 16:33 Drug: Ketorolac 15 mg Route: IVP; Site: right antecubital; dw3 16:50 Follow up: Response: No adverse reaction aa5 Outcome: 16:59 Discharge ordered by . kdr 17:03 Discharged to home ambulatory. ss 17:03 Condition: good 17:03 Discharge instructions given to patient, family, Instructed on discharge instructions, follow up and referral plans. Demonstrated understanding of instructions, follow-up care. 17:04 Patient left the ED. ss Signatures: Dispatcher [employer] EDHI Tera Raymond MD MD [facility] Bhavna Corado, RN RN aa5 [place] RN RN Elisa Gregory Deanna 3 Mikhail Otero, RN RN ll1 Stephie Khalil, RN RN dw3
--- NOTE | 2021-05-30 17:00 | EDPHYS ---
Physician Documentation [facility] Name: Jaimie Amanda Age: 60 yrs Sex: Female : 1960 Arrival Date: 05/30/2021 Time: 13:17 Bed 18 Private MD: ED Physician Tera Raymond HPI: 05/30 16:14 This 60 yrs old Female presents to ER via Wheelchair with complaints of Pain All Over. kdr 16:14 Patient states that she still having pain all over but primarily her abdomen and kdr periumbilical area. She was seen here for similar though more diffuse pain yesterday. The work-up at that time had been negative. Patient's vital signs appear normal otherwise nontoxic in the ED though she does appear uncomfortable. He has no focal complaints. Onset: The symptoms/episode began/occurred at an unknown time. Pain is been ongoing for at least a day or 2. She was seen here yesterday for the same or similar problem. Severity of symptoms: At their worst the symptoms were moderate severe incapacitating in the emergency department the symptoms are unchanged. The patient has experienced similar episodes in the past, a few times. The patient has been recently seen at the [facility] Emergency Department, yesterday. Historical: - Allergies: 13:29 Nitroglycerin; ll1 - PMHx: 13:29 Anxiety; diabetes mellitus; Hypertensive disorder; Hypothyroidism; ll1 - PSHx: 13:29 Thyroidectomy; ll1 - Immunization history:: Client reports receiving the 2nd dose of the Covid vaccine. - Social history:: Smoking status: Patient reports the use of cigarette tobacco products, smokes one-half pack cigarettes per day. ROS: 16:14 Constitutional: Negative for fever, chills, and weight loss, Eyes: Negative for injury, kdr pain, redness, and discharge, ENT: Negative for injury, pain, and discharge, Neck: Negative for injury, pain, and swelling, Cardiovascular: Negative for chest pain, palpitations, and edema, Respiratory: Negative for shortness of breath, cough, wheezing, and pleuritic chest pain, Back: Negative for injury and pain, : Negative for injury, bleeding, discharge, and swelling, MS/Extremity: Negative for injury and deformity, Skin: Negative for injury, rash, and discoloration, Neuro: Negative for headache, weakness, numbness, tingling, and seizure activity. Psych: Negative for depression, anxiety, suicide ideation, homicidal ideation, and hallucinations, Allergy/Immunology: Negative for hives, rash, and allergies, Endocrine: Negative for neck swelling, polydipsia, polyuria, polyphagia, and marked weight changes, Hematologic/Lymphatic: Negative for swollen nodes, abnormal bleeding, and unusual bruising. 16:14 Abdomen/GI: Positive for abdominal pain, nausea, Negative for vomiting, diarrhea, constipation, abdominal cramps, abdominal distension, anorexia, dysphagia, hematemesis, black/tarry stool, rectal pain, rectal bleeding, bowel incontinence. Exam: 16:14 Constitutional: This is a well developed, well nourished patient who is awake, alert, kdr and in mild to moderate distress. Head/Face: Normocephalic, atraumatic. Eyes: Pupils equal round and reactive to light, extra-ocular motions intact. Lids and lashes normal. Conjunctiva and sclera are non-icteric and not injected. Cornea within normal limits. Periorbital areas with no swelling, redness, or edema. Neck: Trachea midline, no thyromegaly or masses palpated, and no cervical lymphadenopathy. Supple, full range of motion without nuchal rigidity, or vertebral point tenderness. No Meningismus. Chest/axilla: Normal chest wall appearance and motion. Nontender with no deformity. No lesions are appreciated. Cardiovascular: Regular rate and rhythm with a normal S1 and S2. No gallops, murmurs, or rubs. Normal PMI, no JVD. No pulse deficits. Respiratory: Lungs have equal breath sounds bilaterally, clear to auscultation and percussion. No rales, rhonchi or wheezes noted. No increased work of breathing, no retractions or nasal flaring. Back: No spinal tenderness. No costovertebral tenderness. Full range of motion. Skin: Warm, dry with normal turgor. Normal color with no rashes, no lesions, and no evidence of cellulitis. 16:14 Abdomen/GI: Inspection: obese Bowel sounds: active, Palpation: soft, mild abdominal tenderness, in all quadrants. Vital Signs: 13:28 BP 158 / 85; Pulse 88; Resp 17; Temp 97.9; Pulse Ox 96% on R/A; Weight 74.84 kg; Height ll1 5 ft. 7 in. (170.18 cm); Pain 10/10; 15:21 BP 144 / 69; Pulse 72; Resp 21; Pulse Ox 95% on R/A; dh3 16:25 BP 154 / 76; Pulse 63; Resp 18; Pulse Ox 100% ; dw3 13:28 Body Mass Index 25.84 (74.84 kg, 170.18 cm) ll1 MDM: 16:14 Data reviewed: vital signs, nurses notes, lab test result(s), radiologic studies. kdr Counseling: I had a detailed discussion with the patient and/or guardian regarding: the historical points, exam findings, and any diagnostic results supporting the discharge/admit diagnosis, lab results, radiology results, the need for outpatient follow up. 16:59 Patient medically screened. kdr 05/30 14:07 Order name: Basic Metabolic Panel; Complete Time: 15:24 kdr 05/30 14:07 Order name: CBC with Diff; Complete Time: 14:56 kdr 05/30 14:07 Order name: Troponin HS; Complete Time: 15:24 kdr 05/30 14:07 Order name: XRAY Chest (1 view); Complete Time: 15:24 kdr 05/30 15:03 Order name: CT Abd/Pelvis - IV Contrast Only; Complete Time: 15:51 kdr 05/30 14:07 Order name: EKG; Complete Time: 14:07 kdr 05/30 14:07 Order name: Cardiac monitoring; Complete Time: 15:11 kdr 05/30 14:07 Order name: EKG - Nurse/Tech; Complete Time: 15:11 kdr 05/30 14:07 Order name: IV Saline Lock; Complete Time: 14:31 kdr 05/30 14:07 Order name: Labs collected and sent; Complete Time: 14:31 kdr 05/30 14:07 Order name: O2 Per Protocol; Complete Time: 14:31 kdr 05/30 14:07 Order name: O2 Sat Monitoring; Complete Time: 14:31 kdr Administered Medications: 16:33 Drug: Ketorolac 15 mg Route: IVP; Site: right antecubital; dw3 16:50 Follow up: Response: No adverse reaction aa5 Disposition Summary: 05/30/21 16:59 Discharge Ordered Location: Home kdr Problem: an ongoing problem kdr Symptoms: have improved kdr Condition: Stable kdr Diagnosis - Abdominal pain, Generalized kdr - Lower abdominal pain, unspecified kdr - Generalized Pain kdr - Myalgia kdr Followup: kdr - With: Private Physician - When: 2 - 3 days - Reason: If symptoms return, Further diagnostic work-up, Recheck today's complaints, Continuance of care, Re-evaluation by your physician Discharge Instructions: - Discharge Summary Sheet kdr Forms: - Medication Reconciliation Form kdr - Thank You Letter kdr - Prescription Opioid Use kdr Prescriptions: - Tramadol 50 mg Oral Tablet - take 1 tablet by ORAL route every 8 hours as needed; 8 tablet; Refills: 0, kdr Product Selection Permitted Signatures: Dispatcher [employer] EDMS Tera Raymond MD MD kdr Mikhail Otero RN RN ll1 Stephie Khalil RN RN dw3 Bhavna Corado RN aa5
[2021-05-30 17:27] VITALS: TEMP 97.9
[2021-05-30 17:36] VITALS: BP 154/76; O2SAT 100
== END 2021-05-30 17:04 | disposition home or self-care (01) ==
LOC: ER 13:16
DX: R10.84 Generalized abdominal pain (principal); R10.30 Lower abdominal pain, unspecified; M79.10 Myalgia, unspecified site; I10 Essential (primary) hypertension; F17.210 Nicotine dependence, cigarettes, uncomplicated; Z88.8 Allergy status to other drugs, medicaments and biological substances
CPT/HCPCS: 93005; 85025; 80048; 36415; 84484; 74177; 71045; 96374; 99284; Q9967

== ENCOUNTER 2021-06-03 09:14 | Emergency (ER) | payer OTHER ==
--- OUTSIDE RECORDS SUMMARY | 2021-06-03 09:17 | XMS REPORT | Continuity of Care Document ---
:1960 Author Organization [facility] t Address [address] [place] [address] Care Team Providers Name Role Phone Sharpless Primary Care Physician RADHA SIMPSON Attending Clinician Unavailable RADHA SIMPSON Attending Clinician Unavailable Doctor Unassigned, Name Attending Clinician Unavailable RAGHU Attending Clinician Unavailable Nazanin CLARK A Attending Clinician Payers Payer Name Policy Type Policy Number Effective Date Expiration Date S [facility] STAR [id number] 2017 00:00:00 PLUS Problems This patient has no known problems. Allergies, Adverse Reactions, Alerts Allergy Allergy Status Severity Reaction(s) Onset Inactive Treating Comm ents Source Name Type Date Date Clinician NITRO DRUG Active Other-Cmnt 2019-0 Univer s TRANSDER 07-27 ity of MAL 00:00: [address] [place] ACETAMIN DRUG Active Other-Cmnt 2019-0 Univ ers OPHEN INGREDI 07-27 ity of 00:00: [address] Social History Social Habit Start Date Stop Date Quantity Comments Source Sex Assigned At [facility] Alcohol intake 2016-05-01 2016-05-[address] [facility] 00:00:00 00:00:00 non-drinker of Medical nter alcohol (finding) Smoking Status Start Date Stop Date Source Current every day smoker 2016-05-01 00:00:00 [facility] Medications Ordered Filled Start Stop Current Ordering Indication Dosage Frequency Signature Comments Components Source Medication Medication Date Date Medication? Clinician (SIG) Name Name OXcarbazepi Yes 600mg [id number] Take [address] ne 2-23 [id number] mg by [facility] (TRILEPTAL) 10:23: 3D [...] Date/Time Type Type Clinicians Facility Department ID 2021-06-01 Outpatient [facility] [id number] [place] 01:36:29 [id number] [facility] 2020-08-03 2020-08-03 Outpatient MATT VÁSQUEZ [facility] [id number] Univers 10:00:00 10:00:00 MATT SIMPSON [id number] [facility] 2020-08-03 2020-08-03 Outpatient MATT VÁSQUEZ [facility] [id number] Univers 10:00:00 10:00:00 MATT SIMPSON [facility] 2020-07-25 2020-07-25 Orders Doctor FISH [id number] 00:00:00 00:00:00 Only Unassigned, BK [id number] [place] [facility] [id number] 2019-09-26 2019-09-26 Outpatient Bertin KRISHNAMURTHY [facility] [id number] Univers 16:00:00 16:00:00 WALLY [facility] 2019-09-26 2019-09-26 Outpatient R RAGHU, [facility] [id number] Univers 16:00:00 16:00:00 WALLY yeager [facility] 2018-10-21 2018-10-21 Telephone Gramm, [facility] [id number] 00:00:00 00:00:00 Natacha Nguyen [id number] Ade [id number] [facility] [id number] [address] Results This patient has no known results.
[2021-06-03] MEDS ORDERED: KETOROLAC 30 MG/ML INJ ONE (09:52)
[2021-06-03] MEDS ORDERED: HYDROCODONE/APAP 5/325 MG TAB ONE (09:52)
[2021-06-03] MEDS ORDERED: LIDOCAINE 4% PATCH ONE (09:52)
[2021-06-03] MEDS ORDERED: ONDANSETRON 4 MG (ODT) TAB ONE (10:15)
--- NOTE | 2021-06-03 11:13 | RAD REPORT ---
EXAM DESCRIPTION: RAD - Lumbar Spine 3 Views - 06/03/2021 11:05 am CLINICAL HISTORY: left leg pain;Radiculopathy COMPARISON: No comparisons FINDINGS: No acute fracture. No malalignment. Moderate disc height loss at L5-S1. Mild endplate spur ring. IMPRESSION: No acute osseous abnormality involving the lumbar spine.
--- NOTE | 2021-06-03 12:15 | EDPHYS ---
Physician Documentation [facility] Name: Jaimie Amanda Age: 60 yrs Sex: Female : 1960 Arrival Date: 06/03/2021 Time: 09:15 Bed 13 Private MD: [place] Physician Diego Ramirez HPI: 06/03 09:35 This 60 yrs old Female presents to ER via Ambulatory with complaints of Leg Pain. pm1 09:35 The patient presents with pain, that is acute. The complaints affect the left leg. pm1 Context: The problem was sustained at an unknown site, resulted from an unknown cause, the patient is able to ambulate. Onset: The symptoms/episode began/occurred 4 day(s) ago. Modifying factors: The symptoms are alleviated by nothing. the symptoms are aggravated by movement. Associated signs and symptoms: Pertinent negatives calf tenderness, numbness, swelling, tingling, weakness. Treatment prior to arrival includes: no previous treatment. Severity of symptoms: in the emergency department the symptoms are unchanged. The patient has not experienced similar symptoms in the past. The patient has not recently seen a physician. [facility] with complaints of left leg pain, pain specifically in left inguinal area. Pain reproduced with movement of left hip. Patient denies any kind of trauma or injury. Patient reports waking up with pain in the morning 4 days ago. Historical: - Allergies: 09:23 Nitroglycerin; tw2 - Home Meds: :23 losartan 50 mg Oral tab [Active]; levothyroxine oral [Active]; metformin 500 mg Oral tw2 TG24 1 tab 2 times per day [Active]; - PMHx: 09:23 Anxiety; diabetes mellitus; Hypertensive disorder; Hypothyroidism; tw2 - PSHx: 09:23 Thyroidectomy; tw2 - Immunization history:: Adult Immunizations. - Social history:: Smoking status: . ROS: 09:35 Constitutional: Negative for fever, chills, and weight loss, Cardiovascular: Negative pm1 for chest pain, palpitations, and edema, Respiratory: Negative for shortness of breath, cough, wheezing, and pleuritic chest pain, Abdomen/GI: Negative for abdominal pain, nausea, vomiting, diarrhea, and constipation, Back: Negative for injury and pain. 09:35 Skin: Negative for injury, rash, and discoloration, Neuro: Negative for headache, weakness, numbness, tingling, and seizure. 09:35 MS/extremity: Positive for pain, of the left leg, Negative for injury or acute deformity, decreased range of motion, deformity. 09:35 All other systems are negative. Exam: 09:35 Constitutional: This is a well developed, well nourished patient who is awake, alert, pm1 and in no acute distress. Head/Face: Normocephalic, atraumatic. 09:35 Skin: Warm, dry with normal turgor. Normal color with no rashes, no lesions, and no evidence of cellulitis. 09:35 Eyes: Exam is negative for acute changes, Conjunctiva: no acute changes, no injection, Sclera: no acute changes. 09:35 ENT: Exam is negative for acute changes, Mouth: Lips: normal, moist, Oral mucosa: normal, pink and intact, moist. 09:35 Cardiovascular: Exam negative for acute changes, Rate: normal, Rhythm: regular, Pulses: no pulse deficits are appreciated. 09:35 Respiratory: Exam negative for acute changes, respiratory distress, shortness of breath, Breath sounds: are clear throughout. 09:35 Abdomen/GI: Inspection: abdomen appears normal, Palpation: abdomen is soft and non-tender, in all quadrants. 09:35 Back: pain, that is mild, of the left low back lateral to lumbar spine, normal spinal alignment noted, vertebral tenderness, is not appreciated, muscle spasm, is appreciated in the left low back lateral to lumbar spine. 09:35 Neuro: Exam negative for acute changes, Orientation: is normal, Mentation: is normal, Motor: is normal, moves all fours. Vital Signs: 09:22 BP 170 / 89; Pulse 86; Resp 17; Temp 97.9(TE); Pulse Ox 98% on R/A; Weight 74.84 kg tw2 (R); Height 5 ft. 7 in. (170.18 cm); Pain 10/10; 10:21 BP 137 / 77; Pulse 76; Resp 15; Pulse Ox 100% ; jl7 11:15 BP 145 / 76; Pulse 70; Resp 15; Pulse Ox 97% ; Pain 10/10; jl7 12:09 BP 156 / 79; Pulse 71; Resp 15; Pulse Ox 96% ; jl7 09:22 Body Mass Index 25.84 (74.84 kg, 170.18 cm) tw2 MDM: 09:28 Patient medically screened. pm1 11:06 Data reviewed: vital signs. Data interpreted: Pulse oximetry: on room air is 100 %. pm1 Interpretation: normal. 12:13 Counseling: I had a detailed discussion with the patient and/or guardian regarding: the pm1 historical points, exam findings, and any diagnostic results supporting the discharge/admit diagnosis, radiology results, the need for outpatient follow up, to return to the emergency department if symptoms worsen or persist or if there are any questions or concerns that arise at home. 06/03 09:35 Order name: Lumbar Spine (3 Views) XRAY; Complete Time: 12:13 pm1 Administered Medications: 09:59 Drug: Ketorolac 60 mg Route: IM; Site: right ventrogluteal; jl7 11:20 Follow up: Response: No adverse reaction; Pain is unchanged, physician notified jl7 10:00 Drug: Lidoderm Patch 5 % (700 mg/patch) 1 patches Route: Topical; Site: affected area; jl7 11:18 Follow up: Response: Pain is unchanged, physician notified jl7 10:00 Drug: HYDROcodone-acetaminophen 5 mg-325 mg 1 tabs Route: PO; jl7 11:17 Follow up: Response: Pain is unchanged, physician notified jl7 10:16 Drug: Ondansetron 4 mg Route: PO; jl7 10:20 Follow up: Response: No adverse reaction; Nausea is decreased jl7 Disposition Summary: 06/03/21 12:14 Discharge Ordered Location: Home pm1 Problem: new pm1 Symptoms: have improved pm1 Condition: Stable pm1 Diagnosis - Low back pain pm1 Followup: pm1 - With: Emergency Department - When: As needed - Reason: Worsening of condition Followup: pm1 - With: Private Physician - When: 2 - 3 days - Reason: Recheck today's complaints, Continuance of care, Re-evaluation by your physician Discharge Instructions: - Discharge Summary Sheet pm1 - Acute Back Pain, Adult pm1 - Back Injury Prevention, [id number] pm1 Forms: - Medication Reconciliation Form pm1 - Thank You Letter pm1 - Antibiotic Education pm1 - Prescription Opioid Use pm1 Prescriptions: - Tramadol 50 mg Oral Tablet - take 1 tablet by ORAL route every 8 hours as needed; 12 tablet; Refills: 0, pm1 Product Selection Permitted - ondansetron 4 mg Oral tablet,disintegrating - place 1 tablet by TRANSLINGUAL route every 8 hours As needed; 22 tablet; pm1 Refills: 0, Product Selection Permitted Addendum: 06/05/2021 07:19 Co-signature as Attending Physician, Diego Ramirez MD I agree with the assessment and c cordero plan of care. Signatures: Dispatcher [employer] EDDiego Angela MD MD cha Marinas, Patrick, LOCOMOTIVE INSPECTOR LOCOMOTIVE INSPECTOR pm1 Maddy Prieto RN RN tw2 Arianna Jackson RN RN jl7
--- NOTE | 2021-06-03 12:15 | ER ---
Nurse's Notes [facility] Name: Jaimie Amnada Age: 60 yrs Sex: Female : 1960 Arrival Date: 06/03/2021 Time: 09:15 Bed 13 Private MD: Diagnosis: Low back pain Presentation: 06/03 09:22 Chief complaint: Patient states: me and my mother have no idea what i did. about 4 days tw2 ago i just woke up and my LEFT leg was hurting. its just excruciating pain. pt denies fall/injury. Coronavirus screen: At this time, the client does not indicate any symptoms associated with coronavirus-19. Ebola Screen: Patient denies exposure to infectious person. Initial Sepsis Screen: Does the patient meet any 2 criteria? No. Patient's initial sepsis screen is negative. Does the patient have a suspected source of infection? No. Patient's initial sepsis screen is negative. Risk Assessment: Do you want to hurt yourself or someone else? Patient reports no desire to harm self or others. Onset of symptoms was June 03, 2021. 09:22 Method Of Arrival: Ambulatory tw2 09:22 Acuity: ZHEN 4 tw2 Triage Assessment: 09:23 General: Appears in no apparent distress. well groomed, Behavior is calm, cooperative, tw2 appropriate for age. Pain: Complains of pain in left leg. Musculoskeletal: Circulation, motion, and sensation intact. Range of motion: intact in all extremities. Historical: - Allergies: : Nitroglycerin; tw2 - Home Meds: : losartan 50 mg Oral tab [Active]; levothyroxine oral [Active]; metformin 500 mg Oral tw2 TG24 1 tab 2 times per day [Active]; - PMHx: : Anxiety; diabetes mellitus; Hypertensive disorder; Hypothyroidism; tw2 - PSHx: : Thyroidectomy; tw2 - Immunization history:: Adult Immunizations. - Social history:: Smoking status: . Screenin: Abuse screen: Denies threats or abuse. Nutritional screening: No deficits noted. tw2 Tuberculosis screening: No symptoms or risk factors identified. Fall Risk None identified. Assessment: 09:58 General: Appears in no apparent distress. uncomfortable, Behavior is calm, cooperative, jl7 appropriate for age. Pain: Complains of pain in left femoral area and left inguinal area Pain currently is 10 out of 10 on a pain scale. Pain began 2-3 days ago. Is continuous. Neuro: Level of Consciousness is awake, alert, obeys commands, Oriented to person, place, time, situation. Cardiovascular: Patient's skin is warm and dry. Respiratory: Airway is patent Respiratory effort is even, unlabored, Respiratory pattern is regular, symmetrical. Derm: Skin is pink, warm \T\ dry. Musculoskeletal: Tenderness present in left femoral area and left inguinal area. 10:10 Reassessment: Pt reporting nausea, ERP notified, see MAR for orders. jl7 10:21 Reassessment: Pt reports decreased nausea. jl7 11:15 Reassessment: Pt returned from radiology, reports no improvement in pain, ERP notified jl7 and gave VO to move lidocaine patch to left lower back. Patch moved as ordered. Vital Signs: 09:22 BP 170 / 89; Pulse 86; Resp 17; Temp 97.9(TE); Pulse Ox 98% on R/A; Weight 74.84 kg tw2 (R); Height 5 ft. 7 in. (170.18 cm); Pain 10/10; 10:21 BP 137 / 77; Pulse 76; Resp 15; Pulse Ox 100% ; jl7 11:15 BP 145 / 76; Pulse 70; Resp 15; Pulse Ox 97% ; Pain 10/10; jl7 12:09 BP 156 / 79; Pulse 71; Resp 15; Pulse Ox 96% ; jl7 09:22 Body Mass Index 25.84 (74.84 kg, 170.18 cm) tw2 ED Course: 09:15 Patient arrived in ED. am2 09:23 Triage completed. tw2 09:24 Arm band placed on. tw2 09:24 Bed in low position. Call light in reach. tw2 09:28 Blas Garay NP is PHCP. pm1 09:28 Diego Ramirez MD is Attending Physician. pm1 09:33 Arianna Jackson RN is Primary Nurse. jl7 10:21 Pulse ox on. NIBP on. jl7 11:07 Lumbar Spine (3 Views) XRAY In Process Unspecified. EDMS 12:31 No provider procedures requiring assistance completed. Patient did not have IV access jl7 during this emergency room visit. Administered Medications: 09:59 Drug: Ketorolac 60 mg Route: IM; Site: right ventrogluteal; jl7 11:20 Follow up: Response: No adverse reaction; Pain is unchanged, physician notified jl7 10:00 Drug: Lidoderm Patch 5 % (700 mg/patch) 1 patches Route: Topical; Site: affected area; jl7 11:18 Follow up: Response: Pain is unchanged, physician notified jl7 10:00 Drug: HYDROcodone-acetaminophen 5 mg-325 mg 1 tabs Route: PO; jl7 11:17 Follow up: Response: Pain is unchanged, physician notified jl7 10:16 Drug: Ondansetron 4 mg Route: PO; jl7 10:20 Follow up: Response: No adverse reaction; Nausea is decreased jl7 Outcome: 12:14 Discharge ordered by MD. pm1 12:31 Discharged to home ambulatory. jl7 12:31 Condition: stable 12:31 Discharge instructions given to patient, Instructed on discharge instructions, follow up and referral plans. medication usage, Demonstrated understanding of instructions, follow-up care, medications, Prescriptions given X 2. 12:32 Patient left the ED. jl7 Signatures: Dispatcher [employer] EDMS Blas Garay NP TAILING MACHINE OPERATOR pm1 Maddy Prieto RN RN tw2 Arianna Jackson RN RN jl7 Elisa Gregory am2 Corrections: (The following items were deleted from the chart) 11:19 09:59 Ketorolac 60 mg IM in right vastus lateralis jl7 jl7 11:19 11:17 Response: Pain is unchanged, physician notified jl7 jl7
[2021-06-03 12:41] VITALS: TEMP 97.9
[2021-06-03 12:45] VITALS: BP 156/79; O2SAT 96
== END 2021-06-03 12:32 | disposition home or self-care (01) ==
LOC: ER 09:14
DX: M54.50 Low back pain, unspecified (principal); M79.605 Pain in left leg; E11.9 Type 2 diabetes mellitus without complications; E03.9 Hypothyroidism, unspecified; F41.9 Anxiety disorder, unspecified; I10 Essential (primary) hypertension; Z88.8 Allergy status to other drugs, medicaments and biological substances
CPT/HCPCS: 72100; 96372; 99284

== ENCOUNTER 2021-06-09 00:02 | Emergency (ER) | payer OTHER ==
--- OUTSIDE RECORDS SUMMARY | 2021-06-09 00:05 | XMS REPORT | Continuity of Care Document ---
:1960 Author Organization [facility] t Address [address] [place] [address] Care Team Providers Name Role Phone Sharpless Primary Care Physician RADHA SIMPSON Attending Clinician Unavailable RADHA SIMPSON Attending Clinician Unavailable Doctor Unassigned, Name Attending Clinician Unavailable RAGHU Attending Clinician Unavailable Gramm REPAIRER PUMP, A Attending Clinician Payers Payer Name Policy Type Policy Number Effective Date Expiration Date S flip [facility] STAR [id number] 2017 00:00:00 PLUS Problems This patient has no known problems. Allergies, Adverse Reactions, Alerts Allergy Allergy Status Severity Reaction(s) Onset Inactive Treating Comm ents Source Name Type Date Date Clinician NITRO DRUG Active Other-Cmnt 2019-0 Univer s TRANSDER 07-27 ity of MAL 00:00: [address] [place] ACETAMIN DRUG Active Other-Cmnt 2019-0 Univ ers OPHEN INGREDI 5- ity of 00:00: [address] Social History Social Habit Start Date Stop Date Quantity Comments Source Sex Assigned At [facility] Alcohol intake 2016-05-01 2016-05-01 Current [facility] 00:00:00 00:00:00 non-drinker of Medical nter alcohol (finding) Smoking Status Start Date Stop Date Source Current every day smoker 2016-05-01 00:00:00 [facility] Medications Ordered Filled Start Stop Current Ordering Indication Dosage Frequency Signature Comments Components Source Medication Medication Date Date Medication? Clinician (SIG) Name Name OXcarbazepi Yes 600mg [id number] Take [address] ne 2-23 [id number] mg by [facility] - (TRILEPTAL) 10:23: 3D [...] Type Clinicians Facility Department ID 2021-06-01 Outpatient [facility] [id number] [place] 01:36:[id number] [facility] 2020-08-03 2020-08-03 Outpatient MATT VÁSQUEZ [facility] [id number] Univers 10:00:00 10:00:00 MATT SIMPSON [id number] [facility] 2020-08-03 2020-08-03 Outpatient MATT VÁSQUEZ [facility] [id number] Univers 10:00:00 10:00:00 MATT SIMPSON [facility] 2020-07-25 2020-07-25 Orders Doctor FISH [id number] 00:00:00 00:00:00 Only Unassigned, BK [id number] [place] [facility] [id number] 2019-09-26 2019-09-26 Outpatient Bertin KRISHNAMURTHY [facility] [id number] Univers 16:00:00 16:00:00 WALLY [facility] 2019-09-26 2019-09-26 Outpatient R RAGHU [facility] [id number] Univers 16:00:00 16:00:00 WALLY [facility] 2018-10-21 2018-10-21 [facility], [facility] [id number] 00:00:00 00:00:00 Natacha Nguyen [id number] Ade [id number] Professio [phone] [address] Results This patient has no known results.
--- NOTE | 2021-06-09 00:54 | ER ---
Nurse's Notes [facility] Name: Jaimie Amanda Age: 60 yrs Sex: Female : 1960 Arrival Date: 06/09/2021 Time: 00:04 Bed 16 Private MD: Diagnosis: Foreign Body, Ring on Ring Finger Presentation: 06/09 00:10 Chief complaint: Patient states: "My ring has been stuck since yesterday. I have been tw5 trying to get it off but I cannot. It really hurts.". Coronavirus screen: Vaccine status: Patient reports receiving the 2nd dose of the covid vaccine. Moderna. Ebola Screen: Patient negative for fever greater than or equal to 101.5 degrees Fahrenheit, and additional compatible Ebola Virus Disease symptoms Patient denies exposure to infectious person. Patient denies travel to an Ebola-affected area in the 21 days before illness onset. Initial Sepsis Screen: Does the patient meet any 2 criteria? No. Patient's initial sepsis screen is negative. Does the patient have a suspected source of infection? No. Patient's initial sepsis screen is negative. Risk Assessment: Do you want to hurt yourself or someone else? Patient reports no desire to harm self or others. Onset of symptoms was June 07, 2021. 00:10 Method Of Arrival: Ambulatory tw5 00:10 Acuity: ZHEN 2 tw5 Triage Assessment: 00:11 General: Appears uncomfortable, Behavior is calm, cooperative, appropriate for age. tw5 Pain: Pain currently is 10 out of 10 on a pain scale. Derm:. Musculoskeletal: Swelling present in dorsal aspect of middle phalanx of right ring finger and dorsal aspect of proximal phalanx of right ring finger. Historical: - Allergies: 00:11 Nitroglycerin; tw5 - Home Meds: 00:11 levothyroxine oral [Active]; losartan 50 mg Oral tab [Active]; metformin 500 mg Oral tw5 TG24 1 tab 2 times per day [Active]; - PMHx: 00:11 Anxiety; diabetes mellitus; Hypertensive disorder; Hypothyroidism; tw5 - PSHx: 00:11 Thyroidectomy; tw5 - Immunization history:: Flu vaccine is up to date. - Social history:: Smoking status: Patient reports the use of cigarette tobacco products, smokes one-half pack cigarettes per day. Screenin:33 Abuse screen: Denies threats or abuse. Denies injuries from another. Nutritional lora screening: No deficits noted. Tuberculosis screening: No symptoms or risk factors identified. Fall Risk None identified. Assessment: 00:30 Reassessment: No changes from previously documented assessment. I recv'd the pt to room lora #16 with her mother. The pt has a ring, that her gave her, stuck on her rt ring finger. All supplies for the pt were placed at , for the MD. 00:54 Reassessment: No changes from previously documented assessment. The pt was insistent lora that she leave now, and she walked her mother to the waiting area. I asked her to wait and I would bring her paperwork to her. Vital Signs: 00:10 BP 180 / 87; Pulse 89; Resp 18; Temp 97; Pulse Ox 94% on R/A; Weight 76.2 kg; Height 5 tw5 ft. 7 in. (170.18 cm); Pain 10/10; 00:10 Body Mass Index 26.31 (76.20 kg, 170.18 cm) tw5 ED Course: 00:04 Patient arrived in ED. jj6 00:11 Triage completed. tw5 00:11 Arm band placed on left wrist. tw5 00:15 Gustavo Reed MD is Attending Physician. [facility] 00:30 Stephanie Cuevas, RN is Primary Nurse. lora 00:33 removing the ring with the ring cutter. lora 00:34 Patient has correct armband on for positive identification. Bed in low position. Call lora light in reach. pt sitting in chair. 00:56 Patient did not have IV access during this emergency room visit. lora Administered Medications: No medications were administered Outcome: 00:34 Condition: stable lora 00:53 Discharge ordered by . 7 00:56 Discharged to home ambulatory. lora 00:56 Discharge instructions given to patient, Instructed on discharge instructions, follow up and referral plans. Demonstrated understanding of instructions, follow-up care. 00:59 Patient left the ED. lora Signatures: Gustavo Reed MD MD Madhavi Rosas tw5 Viridiana Resendiz jj6 Stephanie Cuevas, RN RN lora
--- NOTE | 2021-06-09 00:54 | EDPHYS ---
Physician Documentation [facility] Name: Jaimie Amanda Age: 60 yrs Sex: Female : 1960 Arrival Date: 06/09/2021 Time: 00:04 Bed 16 Private MD: ED Physician Gustavo Reed HPI: 06/09 00:45 This 60 yrs old Female presents to ER via Ambulatory with complaints of RING STUCK ON mh7 RT RING FINGER. 00:46 The patient or guardian reports ring stuck on finger. The complaints affect the right mh7 ring finger. Context: The problem was sustained at home, resulted from ring too small for finger. Onset: The symptoms/episode began/occurred last night. Modifying factors: The symptoms are alleviated by nothing, the symptoms are aggravated by nothing. Associated signs and symptoms: Pertinent negatives: cyanosis distally, decreased sensation distally, fever, nausea, numbness distally, tingling distally, vomiting. Severity of symptoms: At their worst the symptoms were moderate, last night, in the emergency department the symptoms are unchanged. Historical: - Allergies: 00:11 Nitroglycerin; tw5 - Home Meds: 00:11 levothyroxine oral [Active]; losartan 50 mg Oral tab [Active]; metformin 500 mg Oral tw5 TG24 1 tab 2 times per day [Active]; - PMHx: 00:11 Anxiety; diabetes mellitus; Hypertensive disorder; Hypothyroidism; tw5 - PSHx: 00:11 Thyroidectomy; tw5 - Immunization history:: Flu vaccine is up to date. - Social history:: Smoking status: Patient reports the use of cigarette tobacco products, smokes one-half pack cigarettes per day. ROS: 00:46 Constitutional: Negative for fever, chills, and weight loss, Eyes: Negative for injury, mh7 pain, redness, and discharge, ENT: Negative for injury, pain, and discharge, Neck: Negative for injury, pain, and swelling, Cardiovascular: Negative for chest pain, palpitations, and edema, Respiratory: Negative for shortness of breath, cough, wheezing, and pleuritic chest pain, Abdomen/GI: Negative for abdominal pain, nausea, vomiting, diarrhea, and constipation, Back: Negative for injury and pain, : Negative for injury, bleeding, discharge, and swelling, Skin: Negative for injury, rash, and discoloration, Neuro: Negative for headache, weakness, numbness, tingling, and seizure, Psych: Negative for depression, anxiety, suicide ideation, homicidal ideation, and hallucinations, Allergy/Immunology: Negative for hives, rash, and allergies, Endocrine: Negative for neck swelling, polydipsia, polyuria, polyphagia, and marked weight changes, Hematologic/Lymphatic: Negative for swollen nodes, abnormal bleeding, and unusual bruising. Exam: 00:46 Constitutional: This is a well developed, well nourished patient who is awake, alert, mh7 and in no acute distress. 00:46 Skin: Warm, dry with normal turgor. Normal color with no rashes, no lesions, and no evidence of cellulitis. Neuro: Awake and alert, GCS 15, oriented to person, place, time, and situation. Cranial nerves II-XII grossly intact. Motor strength 5/5 in all extremities. Sensory grossly intact. Cerebellar exam normal. Normal gait. Psych: Awake, alert, with orientation to person, place and time. Behavior, mood, and affect are within normal limits. 00:46 Musculoskeletal/extremity: Extremities: noted in the right ring finger: swelling, gold ring proximal to swollen are of finger, ROM: no acute changes, Circulation is intact in all extremities. Sensation intact. Compartment Syndrome exam of affected extremity: is normal. no pain, no numbness, no tingling, no sensation deficit, no palor, no weak pulses, Joints: All joints appear normal with full range of motion. Weight bearing: able to fully bear weight, without difficulty, Tendon exam: specific tendon testing normal through active and passive range of motion Vital Signs: 00:10 BP 180 / 87; Pulse 89; Resp 18; Temp 97; Pulse Ox 94% on R/A; Weight 76.2 kg; Height 5 tw5 ft. 7 in. (170.18 cm); Pain 10/10; 00:10 Body Mass Index 26.31 (76.20 kg, 170.18 cm) tw5 Procedures: 00:46 Foreign Body Removal: a ring, from the right ring finger, by ring cutter. mh7 MDM: 00:46 Differential diagnosis: ring entrapped on finger, foreign body. Data reviewed: vital [facility] signs, nurses notes. Counseling: I had a detailed discussion with the patient and/or guardian regarding: the historical points, exam findings, and any diagnostic results supporting the discharge/admit diagnosis, the need for outpatient follow up, to return to the emergency department if symptoms worsen or persist or if there are any questions or concerns that arise at home. Response to treatment: the patient's symptoms have resolved after treatment, the patient's blood pressure is in an acceptable range, mental status has returned to baseline, the patient no longer shows bradycardia, the patient is not short of breath, the patient is not tachycardic, the patient's pain is gone, the patient's temperature has normalized. 00:53 Patient medically screened. [facility] Administered Medications: No medications were administered Disposition Summary: 06/09/21 00:53 Discharge Ordered Location: Home [facility] Problem: new [facility] Symptoms: are resolved [facility] Condition: Stable [facility] Diagnosis - Foreign Body, Ring on Ring Finger [facility] Followup: [facility] - With: Private Physician - When: 1 - 2 days - Reason: Worsening of condition, Recheck today's complaints, Continuance of care, Re-evaluation by your physician Discharge Instructions: - Discharge Summary Sheet [facility] - Foreign Body [facility] Forms: - Medication Reconciliation Form [facility] - Thank You Letter [facility] - Antibiotic Education [facility] - Prescription Opioid Use [facility] Signatures: Gustavo Reed MD MD [facility] Madhavi Yeboah tw5
[2021-06-09 01:11] VITALS: BP 180/87; TEMP 97; O2SAT 94
== END 2021-06-09 00:59 | disposition home or self-care (01) ==
LOC: ER 00:02
DX: S60.454A Superficial foreign body of right ring finger, initial encounter (principal); E03.9 Hypothyroidism, unspecified; I10 Essential (primary) hypertension; E11.9 Type 2 diabetes mellitus without complications; F41.9 Anxiety disorder, unspecified; F17.210 Nicotine dependence, cigarettes, uncomplicated
CPT/HCPCS: 99281

== ENCOUNTER 2021-07-13 09:29 | Emergency (ER) | payer OTHER ==
--- OUTSIDE RECORDS SUMMARY | 2021-07-13 09:31 | XMS REPORT | Continuity of Care Document ---
:1960 Author Organization [facility] t Address [address] [place] [address] Care Team Providers Name Role Phone Sharpless Primary Care Physician RADHA SIMPSON Attending Clinician Unavailable RADHA SIMPSON Attending Clinician Unavailable Doctor Unassigned, Name Attending Clinician Unavailable RAGHU Attending Clinician Unavailable Nazanin CLARK, A Attending Clinician Payers Payer Name Policy Type Policy Number Effective Date Expiration Date S flip [facility] STAR [id number] 2017 00:00:00 PLUS Problems This patient has no known problems. Allergies, Adverse Reactions, Alerts Allergy Allergy Status Severity Reaction(s) Onset Inactive Treating Comm ents Source Name Type Date Date Clinician NITRO DRUG Active Other-Cmnt NPI:[id number] 3 TRANSDER 07-27 [id number] MAL 00:00: 00 ACETAMIN DRUG Active Other-Cmnt NPI: [id number] OPHEN INGREDI 07-27 [id number] 00:00: 00 Social History Social Habit Start Date Stop Date Quantity Comments Source Sex Assigned At NPI:[id number] Alcohol intake 2016-05-01 2016-05-01 Current NPI:[id number] 00:00:00 00:00:00 non-drinker of alcohol (finding) Smoking Status Start Date Stop Date Source Current every day smoker 2016-05-01 00:00:00 NPI :[id number] Medications Ordered Filled Start Stop Current Ordering Indication Dosage Frequency Signature Comments Components Source Medication Medication Date Date Medication? Clinician (SIG) Name Name OXcarbazepi Yes 600mg [id number] Take 600 NPI:118 ne 2-23 [id number] mg by [id number] (TRILEPTAL) 10:23: 3D mouth 3 600 MG 59 (three) tablet times daily. PARoxetine Yes 40mg QD Take 40 mg N PI:118 (PAXIL) 40 2-23 by mouth [id number] MG tablet 10:23: nightly. 59 LORazepam Yes 1mg Take 1 NPI:11 8 (ATIVAN) 1 2-23 tablet (1 [id number] MG tablet 00:00: mg total) 00 by mouth 3 (three) times daily as needed for Anxiety for up to 5 doses. Max Daily Amount: 3 mg levothyroxi Yes 100ug QD Take 100 N PI:118 ne 4-04 mcg by [id number] (SYNTHROID, 12:29: mouth LEVOTHROID) 18 daily. 100 MCG tablet Procedures This patient has no known procedures. Encounters Start End Encounter Admission Attending Care Care Encounter Source Date/Time Date/Time Type Type Clinicians Facility Department ID 2021-06-01 Outpatient [facility] [id number] NPI:[id number] 01:36:29 [id number] 2020-08-03 2020-08-03 Outpatient MATT VÁSQUEZ [facility] [id number] NPI:[id number] 10:00:00 10:00:00 MATT SIMPSON [id number] 2020-08-03 Outpatient MATT VÁSQUEZ [facility] [id number] NPI:[id number] 10:00:00 10:00:00 MATT SIMPSON [id number] 2020-07-25 Orders Doctor FISH [id number] 00:00:00 00:00:00 Only Unassigned, BK [id number] [place] [facility] [id number] 2019-09-26 2019-09-26 [facility] [id number] NPI:183 16:00:00 16:00:00 WALLY [id number] 2019-09-26 2019-09-26 Outpatient R RAGHU, [facility] [id number] NPI:[id number] 16:00:00 16:00:00 WALLY [id number] 1 2018-10-21 2018-10-21 Telephone Nazanin, [facility] [id number] 00:00:00 00:00:00 Natacha Nguyen [id number] Ade [id number] Professio [id number] nal [address] Building Results Test Description Test Time Test Comments Results Result Comments Source TSH, THIRD GENERATION 2021-06-27 05:15:49 Test Item Value Reference Range Interpretation Comme nts TSH, THIRD GENERATION (test code = 2821) 2.080 UIU/ML 0.400-4.100 HEMOGLOBIN [id number] 03:46:00 Test Item Value Reference Range Interpretation Comments HEMOGLOBIN A1c (test 6.6 % 4.2-5.6 H [facility] code = 07726) ASSOCIATION IDELINES FOR HGB A1C: PREDIABETES/INC REASED RISK . . . . . . . 5.7 -6.4% DIAGNOSIS OF D IABETES . . . . . . . . . > =6.5% WITH CONFIRM ATION OR APPROPRIATE SYM PTOMS NOTE: ASSAY MAY BE AFFECTED BY HEMOGLOBINOP ATHIES (SICKLE JOSE ELIAS L ANEMIA, S-C DISEASE, OTHERS ) OR ARTIFICIALLY LO WERED BY DECREASED RED C ELL SURVIVAL (HEMOLYTIC ANEM IAS, BLOOD LOSS, ETC.) . CONSIDER ALTERNATE TESTI NG OR LABORATORY CONS ULTATION. UNLESS OTHER PEREZ INDICATED, ALL TESTING PERFORMED [facility] [address] [place] [id number] SALES ENGINEER: DIANA RUSS M.D. CLIA NUMBER [id number] CAP ACCREDITATION N O. [id number] LIPID [id number] 02:59:52 Test Item Value Reference Range Interpretation Comments CHOLESTEROL (test 292 MG/DL <200 H code = 2210) TRIGLYCERIDES (test 184 MG/DL <150 H code = 2232) HDL CHOLESTEROL (test 51 MG/DL >39 code = 2220) CALC LDL CHOL (test 205 MG/DL <100 H NOTE: C ALCULATED LDL code = 2237) IS BASED ON MELBA-OLVERA METHOD WHICHINCLUDES ADJUSTABLE TRIGLYCERIDE:VL DL CHOLESTEROL RAT IO.THIS FACTOR VARIES B Y MEASURED TRIGLY CERIDE AND NON-HDLCHOL ESTEROL CONCENTRATIONS WITH INCREASED CALCU LATED LDL SEENIN HIGH ER TRIGLYCERIDE OR LOWER NON-HDL SPECIME NS. FOR MOREINFORMATION , SEE CLIENT ANNOUNCE MENT AT [email or web address] RATIO LDL/HDL 4.02 RATIO <3.22 H (test code = 2238)
[2021-07-13] MEDS ORDERED: HYDROCODONE/APAP 10/325 TAB ONE (11:16)
[2021-07-13] MEDS ORDERED: LIDOCAINE 4% PATCH ONE (11:16)
[2021-07-13] MEDS ORDERED: IBUPROFEN 200 MG TAB PO ONE (11:16)
[2021-07-13] MEDS ORDERED: dexAMETHasone 4 MG TAB ONE (11:16)
--- NOTE | 2021-07-13 11:17 | ER ---
Nurse's Notes [facility] Name: Jaimie Amanda Age: 60 yrs Sex: Female : 1960 Arrival Date: 07/13/2021 Time: 09:32 Bed Waiting Private MD: Diagnosis: Sciatica;Low back pain;Other injury of muscle, fascia and tendon of lower back Presentation: 07/13 10:08 Chief complaint: Patient states: low back pain that began this morning, denies injury. ss Coronavirus screen: Client denies travel out of the [place] in the last 14 days. Ebola Screen: Patient denies exposure to infectious person. Patient denies travel to an Ebola-affected area in the 21 days before illness onset. Initial Sepsis Screen: Does the patient meet any 2 criteria? No. Patient's initial sepsis screen is negative. Does the patient have a suspected source of infection? No. Patient's initial sepsis screen is negative. Risk Assessment: Do you want to hurt yourself or someone else? Patient reports no desire to harm self or others. Onset of symptoms was July 13, 2021. 10:08 Method Of Arrival: Ambulatory ss 10:08 Acuity: ZHEN 4 ss Historical: - Allergies: 10:10 Nitroglycerin; ss - PMHx: 10:10 Anxiety; diabetes mellitus; Hypertensive disorder; Hypothyroidism; ss - PSHx: 10:10 Thyroidectomy; ss - Immunization history:: Adult Immunizations up to date, Client reports receiving the 2nd dose of the Covid vaccine. - Social history:: Smoking status: Patient reports the use of cigarette tobacco products, smokes one pack cigarettes per day. - Family history:: not pertinent. Screenin:10 Abuse screen: Denies threats or abuse. Denies injuries from another. Nutritional ss screening: No deficits noted. Tuberculosis screening: Never had TB. Fall Risk None identified. Assessment: 10:08 General: Appears uncomfortable, Behavior is calm, cooperative. Neuro: Level of ss Consciousness is awake, alert, obeys commands, Oriented to person, place, time, situation. Cardiovascular: Capillary refill < 3 seconds is brisk in bilateral fingers. Respiratory: Airway is patent Respiratory effort is even, unlabored, Respiratory pattern is regular, symmetrical. GI: Patient currently denies diarrhea, nausea, vomiting. : No signs and/or symptoms were reported regarding the genitourinary system. EENT: Oral mucosa is moist. Derm: Skin is intact, is healthy with good turgor, Skin is dry, Skin is pink, warm \T\ dry. normal. Musculoskeletal: Circulation, motion, and sensation intact. Range of motion: intact in all extremities, Swelling absent. 10:10 Reassessment: Pt reports she took a Clonidine prior to arrival for her BP. ss 11:00 Reassessment: Dr. Ramirez seeing patient at this time in triage room. ss Vital Signs: 10:08 BP 173 / 103; Pulse 93; Resp 15; Temp 98.4(TE); Pulse Ox 98% on R/A; Weight 74.84 kg; ss Height 5 ft. 7 in. (170.18 cm); Pain 9/10; 11:02 BP 188 / 96; Pulse 87; Resp 16; Pulse Ox 98% on R/A; ss 10:08 Body Mass Index 25.84 (74.84 kg, 170.18 cm) ED Course: 09:32 Patient arrived in ED. mr 09:43 Dieog Ramirez MD is Attending Physician. [facility] 10:08 Patient has correct armband on for positive identification. Bed in low position. Call ss light in reach. 10:09 Triage completed. ss 10:10 Arm band placed on left wrist. ss 11:35 Lumbar Spine (3 Views) XRAY In Process Unspecified. EDMS 11:55 Bel Vega, CATY is Primary Nurse. ss 11:55 No provider procedures requiring assistance completed. Patient did not have IV access ss during this emergency room visit. Administered Medications: 11:14 Drug: [place] (HYDROcodone-acetaminophen) 10 mg-325 mg 1 tabs Route: PO; ss 11:59 Follow up: Response: No adverse reaction; Pain is decreased ss 11:14 Drug: Lidoderm Patch 5 % (700 mg/patch) 1 patches {Note: low mid back.} Route: Topical; Site: affected area; 11:14 Drug: Decadron (dexamethasone) 4 mg Route: PO; ss 11:59 Follow up: Response: No adverse reaction ss 11:15 Drug: Motrin (ibuprofen) 600 mg Route: PO; ss 11:59 Follow up: Response: No adverse reaction; Pain is decreased ss Outcome: 11:16 Discharge ordered by . hannah 11:55 Discharged to home ambulatory. 11:55 Condition: good 11:55 Discharge instructions given to patient, Instructed on discharge instructions, follow up and referral plans. medication usage, Demonstrated understanding of instructions, follow-up care, medications, Prescriptions given X 4. 12:00 Patient left the ED. Signatures: Dispatcher [employer] EDDiego Angela MD MD cha Rivera, Mary mr Smirch, Shelby, CATY RN ss
--- NOTE | 2021-07-13 11:17 | EDPHYS ---
Physician Documentation [facility] Name: Jaimie Amanda Age: 60 yrs Sex: Female : 1960 Arrival Date: 07/13/2021 Time: 09:32 Bed Waiting Private MD: COSTA Physician Diego Ramirez HPI: 07/13 11:06 This 60 yrs old Female presents to ER via Ambulatory with complaints of Back hannah Pain. 11:06 The patient presents with pain that is acute, with no known mechanism of injury. The hannah symptoms are located in the left low back, left mid back, right mid back and right low back. Onset: The symptoms/episode began/occurred 1 day(s) ago. The pain radiates to the left low back and right low back. Associated signs and symptoms: The patient has no apparent associated signs or symptoms. The problem was sustained from unknown cause. Modifying factors: The patient symptoms are alleviated by nothing. Severity of symptoms: At their worst the symptoms were moderate, in the emergency department the symptoms are unchanged. The patient has experienced similar episodes in the past, a few times. Historical: - Allergies: 10:10 Nitroglycerin; ss - PMHx: 10:10 Anxiety; diabetes mellitus; Hypertensive disorder; Hypothyroidism; ss - PSHx: 10:10 Thyroidectomy; ss - Immunization history:: Adult Immunizations up to date, Client reports receiving the 2nd dose of the Covid vaccine. - Social history:: Smoking status: Patient reports the use of cigarette tobacco products, smokes one pack cigarettes per day. - Family history:: not pertinent. ROS: 11:06 Constitutional: Negative for fever, chills, and weight loss, Eyes: Negative for injury, hannah pain, redness, and discharge, ENT: Negative for injury, pain, and discharge, Neck: Negative for injury, pain, and swelling, Cardiovascular: Negative for chest pain, palpitations, and edema, Respiratory: Negative for shortness of breath, cough, wheezing, and pleuritic chest pain, Abdomen/GI: Negative for abdominal pain, nausea, vomiting, diarrhea, and constipation, : Negative for injury, bleeding, discharge, and swelling, MS/Extremity: Negative for injury and deformity, Skin: Negative for injury, rash, and discoloration, Neuro: Negative for headache, weakness, numbness, tingling, and seizure, Psych: Negative for depression, anxiety, suicide ideation, homicidal ideation, and hallucinations, Allergy/Immunology: Negative for hives, rash, and allergies, Endocrine: Negative for neck swelling, polydipsia, polyuria, polyphagia, and marked weight changes, Hematologic/Lymphatic: Negative for swollen nodes, abnormal bleeding, and unusual bruising. 11:06 Back: Positive for decreased range of motion, pain at rest, pain with movement, of the lumbar area, left low back and right low back. Exam: 11:06 Constitutional: This is a well developed, well nourished patient who is awake, alert, hannah and in no acute distress. Head/Face: Normocephalic, atraumatic. Eyes: Pupils equal round and reactive to light, extra-ocular motions intact. Lids and lashes normal. Conjunctiva and sclera are non-icteric and not injected. Cornea within normal limits. Periorbital areas with no swelling, redness, or edema. ENT: Nares patent. No nasal discharge, no septal abnormalities noted. Tympanic membranes are normal and external auditory canals are clear. Oropharynx with no redness, swelling, or masses, exudates, or evidence of obstruction, uvula midline. Mucous membranes moist. Neck: Trachea midline, no thyromegaly or masses palpated, and no cervical lymphadenopathy. Supple, full range of motion without nuchal rigidity, or vertebral point tenderness. No Meningismus. Chest/axilla: Normal chest wall appearance and motion. Nontender with no deformity. No lesions are appreciated. Cardiovascular: Regular rate and rhythm with a normal S1 and S2. No gallops, murmurs, or rubs. Normal PMI, no JVD. No pulse deficits. Respiratory: Lungs have equal breath sounds bilaterally, clear to auscultation and percussion. No rales, rhonchi or wheezes noted. No increased work of breathing, no retractions or nasal flaring. Abdomen/GI: Soft, non-tender, with normal bowel sounds. No distension or tympany. No guarding or rebound. No evidence of tenderness throughout. Female : Normal external genitalia. Skin: Warm, dry with normal turgor. Normal color with no rashes, no lesions, and no evidence of cellulitis. MS/ Extremity: Pulses equal, no cyanosis. Neurovascular intact. Full, normal range of motion. Neuro: Awake and alert, GCS 15, oriented to person, place, time, and situation. Cranial nerves II-XII grossly intact. Motor strength 5/5 in all extremities. Sensory grossly intact. Cerebellar exam normal. Normal gait. Psych: Awake, alert, with orientation to person, place and time. Behavior, mood, and affect are within normal limits. 11:06 Back: pain, that is mild, that is moderate, ROM is painful, normal spinal alignment noted, CVA tenderness, is absent, vertebral tenderness, is not appreciated. Vital Signs: 10:08 BP 173 / 103; Pulse 93; Resp 15; Temp 98.4(TE); Pulse Ox 98% on R/A; Weight 74.84 kg; ss Height 5 ft. 7 in. (170.18 cm); Pain 9/10; 11:02 BP 188 / 96; Pulse 87; Resp 16; Pulse Ox 98% on R/A; ss 10:08 Body Mass Index 25.84 (74.84 kg, 170.18 cm) MDM: 11:13 Differential diagnosis: Fatigue Fracture Obesity Osteoporosis spinal injury, sprain. [facility] Data reviewed: vital signs, nurses notes, radiologic studies, plain films. Data interpreted: substance abuse therapist: not applicable for this patient encounter. rate is 87 beats/min, rhythm is regular. Counseling: I had a detailed discussion with the patient and/or guardian regarding: the historical points, exam findings, and any diagnostic results supporting the discharge/admit diagnosis, the presence of at least one elevated blood pressure reading (>120/80) during this emergency department visit, lab results, radiology results. 11:16 Patient medically screened. [facility] 07/13 11:06 Order name: Lumbar Spine (3 Views) XRAY; Complete Time: 11:46 [facility] Administered Medications: 11:14 Drug: [place] (HYDROcodone-acetaminophen) 10 mg-325 mg 1 tabs Route: PO; ss 11:59 Follow up: Response: No adverse reaction; Pain is decreased ss 11:14 Drug: Lidoderm Patch 5 % (700 mg/patch) 1 patches {Note: low mid back.} Route: Topical; ss Site: affected area; 11:14 Drug: Decadron (dexamethasone) 4 mg Route: PO; ss 11:59 Follow up: Response: No adverse reaction 11:15 Drug: Motrin (ibuprofen) 600 mg Route: PO; ss 11:59 Follow up: Response: No adverse reaction; Pain is decreased ss Disposition Summary: 07/13/21 11:16 Discharge Ordered Location: Home [facility] Problem: new [facility] Symptoms: have improved hannah Condition: Stable hannah Diagnosis - Sciatica hannah - Low back pain hannah - Other injury of muscle, fascia and tendon of lower back hannah Followup: hannah - With: Private Physician - When: 2 - 3 days - Reason: Recheck today's complaints, Re-evaluation by your physician Discharge Instructions: - Discharge Summary Sheet hannah - Acute Back Pain, Adult hannah - Musculoskeletal Pain [facility] - Back Injury Prevention, [id number] [facility] Forms: - Medication Reconciliation Form [facility] - Thank You Letter [facility] - Antibiotic Education [facility] - Prescription Opioid Use [facility] Prescriptions: - dexamethasone 2 mg Oral tablet - take 1 tablet by ORAL route 2 times per day; 10 tablet; Refills: 0, Product [facility] Selection Permitted - Motrin IB 200 mg Oral Tablet - take 2 tablet by ORAL route every 6 hours As needed as needed with food; 30 hannah tablet; Refills: 0, Product Selection Permitted - Cyclobenzaprine 5 mg Oral Tablet - take 1 tablet by ORAL route 3 times per day As needed; 15 tablet; Refills: 0, [facility] Product Selection Permitted - Tylenol-Codeine #3 300 mg-30 mg Oral - take 2 tablet by ORAL route every 6 hours; 18 tablet; Refills: 0, Product [facility] Selection Permitted Signatures: Dispatcher [employer] Diego Osorio MD MD cha Smirch, Shelby, RN RN ss
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
[2021-07-13 12:10] VITALS: TEMP 98.4; O2SAT 98
[2021-07-13 12:11] VITALS: BP 188/96
== END 2021-07-13 12:00 | disposition home or self-care (01) ==
LOC: ER 09:29
DX: M54.50 Low back pain, unspecified (principal); M54.30 Sciatica, unspecified side; S39.092A Other injury of muscle, fascia and tendon of lower back, initial encounter; I10 Essential (primary) hypertension; E11.9 Type 2 diabetes mellitus without complications; F17.210 Nicotine dependence, cigarettes, uncomplicated; Z88.8 Allergy status to other drugs, medicaments and biological substances
CPT/HCPCS: 72100; 99283; J8540

== ENCOUNTER 2021-07-25 11:04 | Emergency (ER) | payer OTHER ==
--- OUTSIDE RECORDS SUMMARY | 2021-07-25 11:07 | XMS REPORT | Continuity of Care Document ---
:1960 Author Organization [facility] t Address [address] [place] [address] Care Team Providers Name Role Phone Sharpless Primary Care Physician RADHA SIMPSON Attending Clinician Unavailable RADHA SIMPSON Attending Clinician Unavailable Doctor Unassigned, Name Attending Clinician Unavailable RAGHU Attending Clinician Unavailable Gramm CAN STRIPER, A Attending Clinician Payers Payer Name Policy Type Policy Number Effective Date Expiration Date S flip [facility] [id number] 2017 00:00:00 PLUS Problems This patient has no known problems. Allergies, Adverse Reactions, Alerts Allergy Allergy Status Severity Reaction(s) Onset Inactive Treating Comm ents Source Name Type Date Date Clinician NITRO DRUG Active Other-Cmnt 0 Univer s TRANSDER 07-27 ity of MAL 00:00: [address] [place] ACETAMIN DRUG Active Other-Cmnt 0 Univ ers OPHEN INGREDI - ity of 00:00: [address] Social History Social Habit Start Date Stop Date Quantity Comments Source Sex Assigned At [facility] Alcohol intake 2016-05-01 2016-05-01 Current [facility] es 00:00:00 00:00:00 non-drinker of Medical Ce nter alcohol (finding) Smoking Status Start Date Stop Date Source Current every day smoker 2016-05-01 00:00:00 [facility] Medications Ordered Filled Start Stop Current Ordering Indication Dosage Frequency Signature Comments Components Source Medication Medication Date Date Medication? Clinician (SIG) Name Name OXcarbazepi Yes 600mg [id number] Take [address] ne 2-23 [id number] mg by [facility] (TRILEPTAL) 10:23: 3D mouth 3 Med ical 600 MG 59 (three) Center tablet times daily. PARoxetine Yes 40mg QD Take [address] (PAXIL) 40 2-23 by mouth [facility] MG tablet 10:23: nightly. Medi anjelica 59 Center LORazepam Yes 1mg Take [address] [facility] (ATIVAN) 1 2-23 tablet (1 [facility] MG tablet 00:00: mg total) Med ical 00 by mouth 3 Center (three) times daily as needed for Anxiety for up to 5 doses. Max Daily Amount: 3 mg levothyroxi Yes 100ug QD Take [address] ne 4-04 mcg by [facility] (SYNTHROID, 12:29: mouth Medic al LEVOTHROID) 18 daily. Center 100 MCG tablet Procedures This patient has no known procedures. Encounters Start End Encounter Admission Attending Care Care Encounter Source Date/Time Date/Time Type Type Clinicians Facility Department ID 2021-06-01 [facility]patient [facility] [id number] [place] 01:36:29 [id number] [facility] 2020-08-03 2020-08-03 Outpatient MATT VÁSQUEZ [facility] [id number] Univers 10:00:00 10:00:00 MATT SIMPSON [id number] [facility] 2020-08-03 2020-08-03 Outpatient MATT VÁSQUEZ [facility] [id number] [facility] 10:00:00 10:00:00 MATT SIPMSON [facility] 2020-07-25 2020-07-25 Orders Doctor ABE [id number] 00:00:00 00:00:00 Only Unassigned, BK [id number] [place] [facility] [id number] 2019-09-26 2019-09-26 [facility] [id number] Univers 16:00:00 16:00:00 WALLY [facility] 2019-09-26 2019-09-26 Outpatient R RAGHU, [facility] [id number] Univers 16:00:00 16:00:00 WALLY [facility] 2018-10-21 2018-10-21 Telephone Nazanin, [facility] [id number] 00:00:00 00:00:00 Natacha Nguyen [id number] Ade [id number] Professio [id number] nal 204 Building Results Test Description Test Time Test Comments Results Result Comments Source TSH, THIRD GENERATION 2021-06-27 05:15:49 Test Item Value Reference Range Interpretation Comme nts TSH, THIRD GENERATION (test code = 2821) 2.080 UIU/ML 0.400-4.100 HEMOGLOBIN [id number] 03:46:00 Test Item Value Reference Range Interpretation Comments HEMOGLOBIN A1c (test 6.6 % 4.2-5.6 H [employer] code = 14428) ASSOCIATION IDE[employer] FOR HGB A1C: PREDIABETES/INC REASED [...] UNLESS OTHER PEREZ INDICATED, ALL TESTING PERFORMED [facility] [address] [place] [address] SUBACUTE NURSE: DIANA RUSS M.D. CLIA NUMBER [id number] CAP ACCREDITATION N O. [id number] LIPID [id number] 02:59:52 Test Item Value Reference Range Interpretation [...] MOREINFORMATION , SEE CLIENT ANNOUNCE MENT AT [email or web address] RATIO LDL/HDL 4.02 RATIO <3.22 H (test code = 2238)
[2021-07-25] MEDS ORDERED: KETOROLAC 30 MG/ML INJ ONE (12:01)
[2021-07-25] MEDS ORDERED: CYCLOBENZAPRINE 10 MG TAB ONE (12:01)
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
[2021-07-25 12:59] VITALS: BP 123/91; TEMP 97.9; O2SAT 97
== END 2021-07-25 12:45 | disposition home or self-care (01) ==
LOC: ER 11:04
DX: S33.5XXA Sprain of ligaments of lumbar spine, initial encounter (principal); V49.40XA Driver injured in collision with unspecified motor vehicles in traffic accident, initial encounter; E11.9 Type 2 diabetes mellitus without complications; I10 Essential (primary) hypertension; F17.210 Nicotine dependence, cigarettes, uncomplicated; Z88.8 Allergy status to other drugs, medicaments and biological substances
CPT/HCPCS: 72100; 96372; 99283

== ENCOUNTER 2021-07-27 09:07 | Emergency (ER) | payer OTHER ==
--- OUTSIDE RECORDS SUMMARY | 2021-07-27 09:11 | XMS REPORT | Continuity of Care Document ---
:1960 Author Organization [facility] t Address [address] [place] [address] Care Team Providers Name Role Phone Sharpless Primary Care Physician RADHA SIMPSON Attending Clinician Unavailable RADHA SIMPSON Attending Clinician Unavailable Doctor Unassigned, Name Attending Clinician Unavailable RAGHU Attending Clinician Unavailable Gramm [employer] SALESPERSON, A Attending Clinician Payers Payer Name Policy Type Policy Number Effective Date Expiration Date S flip [facility] [id number] 2017 00:00:00 PLUS Problems This patient has no known problems. Allergies, Adverse Reactions, Alerts Allergy Allergy Status Severity Reaction(s) Onset Inactive Treating Comm ents Source Name Type Date Date Clinician NITRO DRUG Active Other-Cmnt Univer s TRANSDER 07-27 ity of MAL 00:00: [address] [place] ACETAMIN DRUG Active Other-Cmnt 0 Univ ers OPHEN INGREDI 07-27 ity of 00:00: [address] Social History Social Habit Start Date Stop Date Quantity Comments Source Sex Assigned At [facility] Alcohol intake 2016-05-01 2016-05-01 Current [facility] es 00:00:00 00:00:00 non-drinker of Medical Ce nter alcohol (finding) Smoking Status Start Date Stop Date Source Current every day smoker 2016-05-01 00:00:00 [facility] Medications Ordered Filled Start Stop Current Ordering Indication Dosage Frequency Signature Comments Components Source Medication Medication Date Date Medication? Clinician (SIG) Name Name OXcarbazepi Yes 600mg [id number] Take [address] ne 2-23 [id number] mg by [facility] (TRILEPTAL) 10:23: 3D mouth [...] Type Clinicians Facility Department ID 2021-06-01 Outpatient [facility] [id number] [place] 01:36:29 [id number] [facility] 2020-08-03 2020-08-03 Outpatient MATT VÁSQUEZ [facility] [id number] Univers 10:00:00 10:00:00 MATT SIMPSON [id number] [facility] 2020-08-03 2020-08-03 Outpatient MATT VÁSQUEZ [facility] [id number] [facility] 10:00:00 10:00:00 MATT SIMPSON [facility] 2020-07-25 2020-07-25 Orders Doctor ABE [id number] 00:00:00 00:00:00 Only Unassigned, BK [id number] [place] [facility] [id number] 2019-09-26 2019-09-26 [facility] [id number] Univers 16:00:00 16:00:00 WALLY [facility] 2019-09-26 2019-09-26 Outpatient R RAGHU, [facility] [id number] Univers 16:00:00 16:00:00 WALLY yeager [facility] 2018-10-21 2018-10-21 Telephone Nazanin, [facility] [id number] 00:00:00 00:00:00 Natacha Nguyen [id number] Ade [id number] Professio [id number] nal [address] Building Results Test Description Test Time Test Comments Results Result Comments Source TSH, THIRD GENERATION 2021-06-27 05:15:49 Test Item Value Reference Range Interpretation Comme nts TSH, THIRD GENERATION (test code = 2821) 2.080 UIU/ML 0.400-4.100 HEMOGLOBIN [id number] 03:46:00 Test Item Value Reference Range Interpretation Comments HEMOGLOBIN A1c (test 6.6 % 4.2-5.6 H MALIAN DIABETES code = 85206) ASSOCIATION IDELINES FOR HGB A1C: PREDIABETES/INC REASED [...] UNLESS OTHER PEREZ INDICATED, ALL TESTING PERFORMED [facility] NICIA PATHOLOGY LABOR [facility] [address] [place] [address] PHYSICAL CHEMISTRY TEACHER: DIANA RUSS M.D. CLIA NUMBER [id number] CAP ACCREDITATION N O. [id number] LIPID [id number] 02:59:52 Test Item Value Reference Range Interpretation [...] MOREINFORMATION , SEE CLIENT ANNOUNCE MENT AT [email or web address] RATIO LDL/HDL 4.02 RATIO <3.22 H (test code = 2238)
[2021-07-27 09:28] LABS: Urine Blood Negative (Negative); Urine Glucose Negative (Negative); Urine Protein Negative (Negative)
[2021-07-27 09:37] LABS: Absolute Lymphocytes (CBC) 1.2 K/uL (0.7-4.9); Hematocrit 41.2 % (36.0-45.0); Lymphocytes % 13.7 % (15.3-44.8); MPV 6.7 fL (7.6-11.3); RBC Red Blood Cell Count 4.57 M/uL (3.86-4.86)
[2021-07-27 09:39] LABS: Urine Bacteria <20 /HPF (<20); Urine RBC NONE SEEN /HPF (NONE SEEN)
[2021-07-27 09:40] LABS: Urine Volume < 2.0 mL
[2021-07-27 09:58] LABS: Albumin 4.2 g/dL (3.4-5.0); Bilirubin Total 0.3 mg/dL (0.2-1.0); Potassium 4.1 mmol/L (3.5-5.1); Protein, Total 8.3 g/dL (6.4-8.2)
--- NOTE | 2021-07-27 10:43 | RAD REPORT ---
EXAM DESCRIPTION: CTAbdomen Pelvis W Contrast - 07/27/2021 10:27 am CLINICAL HISTORY: Abdominal pain. Abdominal pain, acute, nonlocalized COMPARISON: Abdomen Pelvis W Contrast dated 05/30/2021; Abdomen Pelvis W Contrast dated 04/29/2021 ; Abdomen Pelvis W Contrast dated 04/25/2021; Abdomen Pelvis W Contrast dated 04/21/2021 TECHNIQUE: Biphasic CT imaging of the abdomen and pelvis was performed with 100 ml non-ionic IV cont rast. All CT scans are performed using dose optimization technique as appropriate and may include automated exposure control or mA/KV adjustment according to patient size. FINDINGS: Linear atelectasis is present in both posterior lung bases.Small hiatal hernia. Several small benign hepatic cysts. No aggressive liver lesion or biliary dilatation. The spleen, cross creas, adrenal glands and kidneys are within normal limits. Small benign left renal cysts. No bowel obstruction, free air, free fluid or abscess. The appendix is normal. No evidence of signi ficant lymphadenopathy. Mild lumbosacral degenerative changes. IMPRESSION: No acute intra-abdominal or pelvic finding.
[2021-07-27] MEDS ORDERED: ONDANSETRON 4 MG/2 ML VIAL ONE (11:56)
[2021-07-27] MEDS ORDERED: NA CHLORIDE 0.9% 1,000 ML ONE (11:56)
[2021-07-27] MEDS ORDERED: MORPHINE 4 MG/ML SYR ONE (11:56)
--- NOTE | 2021-07-27 12:10 | EDPHYS ---
Physician Documentation [facility] Name: Jaimie Amanda Age: 60 yrs Sex: Female : 1960 Arrival Date: 07/27/2021 Time: 09:08 Bed 10 Private MD: ED Physician Joseph Thompson HPI: 07/27 09:33 This 60 yrs old Female presents to ER via Ambulatory with complaints of Abdominal Pain, jr8 Nausea. 09:33 The patient presents with abdominal pain Right mid abdomen. Onset: The symptoms/episode jr8 began/occurred acutely, yesterday. The symptoms do not radiate. Associated signs and symptoms: Pertinent positives: nausea. The symptoms are described as sharp. Modifying factors: The symptoms are alleviated by nothing, the symptoms are aggravated by nothing. Severity of pain: At its worst the pain was moderate in the emergency department the pain is unchanged. The patient has not experienced similar symptoms in the past. The patient has been recently seen by a physician: with different complaint(s), X-rays were performed. Historical: - Allergies: 09:16 Nitroglycerin; iw - Home Meds: 09:16 Effexor XR Oral [Active]; levothyroxine oral [Active]; Metformin Oral [Active]; iw Clonidine Oral [Active]; - PMHx: 09:16 Anxiety; diabetes mellitus; Hypertensive disorder; Hypothyroidism; Depressive disorder; iw - PSHx: 09:16 Thyroidectomy; iw - Immunization history:: Adult Immunizations unknown. - Social history:: Smoking status: Patient denies any tobacco usage or history of. ROS: 09:33 Eyes: Negative for injury, pain, redness, and discharge, ENT: Negative for injury, jr8 pain, and discharge, Neck: Negative for injury, pain, and swelling, Cardiovascular: Negative for chest pain, palpitations, and edema, Respiratory: Negative for shortness of breath, cough, wheezing, and pleuritic chest pain, Back: Negative for injury and pain, MS/Extremity: Negative for injury and deformity, Skin: Negative for injury, rash, and discoloration, Neuro: Negative for headache, weakness, numbness, tingling, and seizure. 09:33 Abdomen/GI: Positive for abdominal pain, nausea, Negative for vomiting, diarrhea, hematemesis, black/tarry stool, rectal pain, rectal bleeding, bowel incontinence, flatulence. Exam: 09:33 Constitutional: This is a well developed, well nourished patient who is awake, alert, jr8 and in no acute distress. Cardiovascular: Regular rate and rhythm with a normal S1 and S2. No gallops, murmurs, or rubs. Normal PMI, no JVD. No pulse deficits. Respiratory: Lungs have equal breath sounds bilaterally, clear to auscultation and percussion. No rales, rhonchi or wheezes noted. No increased work of breathing, no retractions or nasal flaring. Back: No spinal tenderness. No costovertebral tenderness. Full range of motion. Skin: Warm, dry with normal turgor. Normal color with no rashes, no lesions, and no evidence of cellulitis. MS/ Extremity: Pulses equal, no cyanosis. Neurovascular intact. Full, normal range of motion. Neuro: Awake and alert, GCS 15, oriented to person, place, time, and situation. Cranial nerves II-XII grossly intact. Motor strength 5/5 in all extremities. Sensory grossly intact. Cerebellar exam normal. Normal gait. 09:33 Abdomen/GI: Inspection: abdomen appears normal, Bowel sounds: active, all quadrants, Palpation: soft, in all quadrants, mild abdominal tenderness, in the right mid abdomen, mass, is not appreciated, rebound tenderness, is not appreciated, voluntary guarding, is not appreciated, involuntary guarding, is not appreciated, no appreciated organomegaly, Indicators: McBurney's point is not tender, Marrero's sign is negative, Rovsing's sign is negative, Liver: tenderness, is not appreciated. Vital Signs: 09:14 BP 132 / 98; Pulse 83; Resp 16; Temp 97.9; Pulse Ox 96% on R/A; Weight 74.84 kg; Height iw 5 ft. 7 in. (170.18 cm); 09:14 Body Mass Index 25.84 (74.84 kg, 170.18 cm) iw MDM: 09:20 Patient medically screened. jr8 12:07 Data reviewed: vital signs, nurses notes, lab test result(s), radiologic studies, CT jr8 scan. Data interpreted: Pulse oximetry: on room air is 96 %. Interpretation: normal. Counseling: I had a detailed discussion with the patient and/or guardian regarding: the historical points, exam findings, and any diagnostic results supporting the discharge/admit diagnosis, lab results, radiology results, the need for outpatient follow up, a family practitioner, a reconciliation clerk, to return to the emergency department if symptoms worsen or persist or if there are any questions or concerns that arise at home. ED course: Discussed with patient no acute intraabdominal findings. CBC stable. Chronic hyponatremia present. Most likely her SNRI which I told her she needs to f/u with PCP about. No other chronic diuretic, NSAID, alcohol use or large volume loss to indicate otherwise. Patient stated that she understood and would follow up . 07/27 09:20 Order name: CBC with Diff; Complete [facility]: 09:51 [facility] 07/27 09:20 Order name: CMP; Complete Time: 10:02 [facility] 07/27 09:20 Order name: Lipase; Complete Time: 10:02 [facility] 07/27 09:20 Order name: Urine Microscopic Only; Complete Time: 09:51 [facility] 07/27 09:28 Order name: Urine Dipstick-Ancillary; Complete Time: 09:51 [facility] 07/27 10:03 Order name: Osmolality, Serum; Complete Time: 11:42 [facility] 07/27 09:20 Order name: IV Saline Lock; Complete Time: 09:34 [facility] 07/27 09:20 Order name: Labs collected and sent; Complete Time: :34 [facility] 07/27 09:52 Order name: CT Abd/Pelvis - IV Contrast Only; Complete Time: 10:47 [facility] 07/27 10:03 Order name: Urine Osmolality; Complete Time: 11:42 [facility] 07/27 10:03 Order name: Urine Sodium Random; Complete Time: 11:42 [facility] 07/27 09:20 Order name: Urine Dipstick-Ancillary (obtain specimen); Complete Time: 09:32 jr Administered Medications: 11:58 Drug: NS 0.9% 1000 ml Route: IV; Rate: 1000 ml; Site: right antecubital; iw 12:58 Follow up: IV Status: Completed infusion; IV Intake: 1000ml ss 11:59 Drug: morphine 4 mg Route: IVP; Site: right antecubital; iw 12:58 Follow up: Response: No adverse reaction; Pain is decreased ss 11:59 Drug: Zofran (Ondansetron) 4 mg Route: IVP; Site: right antecubital; iw 12:58 Follow up: Response: No adverse reaction ss Disposition Summary: 07/27/21 12:09 Discharge Ordered Location: Home jr8 Problem: new jr8 Symptoms: have improved jr8 Condition: Stable jr8 Diagnosis - Hyponatremia jr8 - Abdominal pain, Generalized jr8 Followup: jr8 - With: Private Physician - When: 2 - 3 days - Reason: Recheck today's complaints, Continuance of care, Re-evaluation by your physician Discharge Instructions: - Discharge Summary Sheet jr8 - Abdominal Pain, Adult jr8 - Hyponatremia jr8 Forms: - Medication Reconciliation Form jr8 - Thank You Letter jr8 - Antibiotic Education jr8 - Prescription Opioid Use jr8 Signatures: Dispatcher [employer] Therese Coello RN RN iw Bel Vega RN RN Paras Naik PA PA jr8
--- NOTE | 2021-07-27 12:10 | ER ---
Nurse's Notes [facility] Name: Jaimie Amanda Age: 60 yrs Sex: Female : 1960 Arrival Date: 07/27/2021 Time: 09:08 Bed 10 Private MD: Diagnosis: Hyponatremia;Abdominal pain, Generalized Presentation: 07/27 09:14 Chief complaint: Patient states: right sided abd pain since yesterday , and is having iw some bleeding when she uses the bathroom but is not sure if it's from her urine or stool, thinks its' ;like a period but she doesn;t get those anymore. Coronavirus screen: At this time, the client does not indicate any symptoms associated with coronavirus-19. Ebola Screen: Patient negative for fever greater than or equal to 101.5 degrees Fahrenheit, and additional compatible Ebola Virus Disease symptoms Patient denies exposure to infectious person. Patient denies travel to an Ebola-affected area in the 21 days before illness onset. No symptoms or risks identified at this time. Initial Sepsis Screen: Does the patient meet any 2 criteria? No. Patient's initial sepsis screen is negative. Does the patient have a suspected source of infection? No. Patient's initial sepsis screen is negative. Risk Assessment: Do you want to hurt yourself or someone else? Patient reports no desire to harm self or others. Onset of symptoms was July 26, 2021. 09:14 Method Of Arrival: Ambulatory iw 09:14 Acuity: ZHEN 3 iw Historical: - Allergies: 09:16 Nitroglycerin; iw - Home Meds: 09:16 Effexor XR Oral [Active]; levothyroxine oral [Active]; Metformin Oral [Active]; iw Clonidine Oral [Active]; - PMHx: 09:16 Anxiety; diabetes mellitus; Hypertensive disorder; Hypothyroidism; Depressive disorder; iw - PSHx: 09:16 Thyroidectomy; iw - Immunization history:: Adult Immunizations unknown. - Social history:: Smoking status: Patient denies any tobacco usage or history of. Screenin:18 Abuse screen: Denies threats or abuse. Denies injuries from another. Nutritional iw screening: No deficits noted. Tuberculosis screening: No symptoms or risk factors identified. Fall Risk None identified. Assessment: 09:18 General: Appears in no apparent distress. Behavior is calm, cooperative. Pain: iw Complains of pain in right upper quadrant and right lower quadrant. Neuro: Level of Consciousness is awake, alert, obeys commands, Oriented to person, place, time, situation, Moves all extremities. Full function Gait is. Cardiovascular: Patient's skin is warm and dry. GI: Bowel sounds present X 4 quads. GI: Abd is soft and non tender Reports lower abdominal pain, upper abdominal pain, nausea. 10:45 Reassessment: Patient appears in no apparent distress at this time. Patient and/or iw family updated on plan of care and expected duration. Pain level reassessed. Patient is alert, oriented x 3, equal unlabored respirations, skin warm/dry/pink. 11:02 Reassessment: pt requesting pain medication, Chiki Crain notified. iw 12:22 Reassessment: awaiting IV fluids to finish infusing prior to discharge. ss Vital Signs: 09:14 BP 132 / 98; Pulse 83; Resp 16; Temp 97.9; Pulse Ox 96% on R/A; Weight 74.84 kg; Height iw 5 ft. 7 in. (170.18 cm); 09:14 Body Mass Index 25.84 (74.84 kg, 170.18 cm) iw ED Course: 09:08 Patient arrived in ED. ds1 09:16 Triage completed. iw 09:17 Arm band placed on. iw 09:18 Therese Logan, RN is Primary Nurse. iw 09:18 Paras Naik PA is PHCP. jr8 09:18 Joseph Thompson MD is Attending Physician. jr8 09:34 Inserted saline lock: 20 gauge in right antecubital area, using aseptic technique. jw7 Blood collected. 09:34 Initial lab(s) drawn, by me, sent to lab. jw7 10:29 CT Abd/Pelvis - IV Contrast Only In Process Unspecified. EDMS 12:22 Patient has correct armband on for positive identification. ss Administered Medications: 11:58 Drug: NS 0.9% 1000 ml Route: IV; Rate: 1000 ml; Site: right antecubital; iw 12:58 Follow up: IV Status: Completed infusion; IV Intake: 1000ml ss 11:59 Drug: morphine 4 mg Route: IVP; Site: right antecubital; iw 12:58 Follow up: Response: No adverse reaction; Pain is decreased ss 11:59 Drug: Zofran (Ondansetron) 4 mg Route: IVP; Site: right antecubital; iw 12:58 Follow up: Response: No adverse reaction ss Medication: 10:23 VIS not applicable for this client. iw Intake: 12:58 IV: 1000ml; Total: 1000ml. ss Outcome: 12:09 Discharge ordered by MD. keller 12:58 Discharged to home ambulatory. ss 12:58 Condition: good 12:58 Discharge instructions given to patient, Instructed on discharge instructions, follow up and referral plans. medication usage, Demonstrated understanding of instructions, follow-up care, medications. 13:01 Patient left the ED. ss Signatures: Dispatcher [employer] EDNY Aminah Villa ds1 Therese Logan RN RN Bel Vega RN RN Paras Naik, CHIKI VALDEZ jr8 Lakesha Bloom jw7
[2021-07-27 13:37] VITALS: BP 132/98; TEMP 97.9; O2SAT 96
== END 2021-07-27 13:01 | disposition home or self-care (01) ==
LOC: ER 09:07
DX: E87.1 Hypo-osmolality and hyponatremia (principal); I10 Essential (primary) hypertension; F32.A Depression, unspecified; E11.9 Type 2 diabetes mellitus without complications; E03.9 Hypothyroidism, unspecified; Z88.8 Allergy status to other drugs, medicaments and biological substances
CPT/HCPCS: 96361; 85025; 36415; 84300; 83690; 80053; 83930; 83935; 74177; 96375; 96374; 99284; Q9967; J7030; J2405; 81003; 81015

== ENCOUNTER 2021-08-02 11:08 | Emergency (ER) | payer OTHER ==
--- OUTSIDE RECORDS SUMMARY | 2021-08-02 11:10 | XMS REPORT | Continuity of Care Document ---
:[address] [facility] t Address [address] [place] [address] Care Team Providers Name Role Phone Sharpless Primary Care Physician RADHA SIMPSON Attending Clinician Unavailable RADHA SIMPSON Attending Clinician Unavailable Doctor Unassigned, Name Attending Clinician Unavailable RAGHU Attending Clinician Unavailable Gramm HEATER FURNACE, A Attending Clinician Payers Payer Name Policy Type Policy Number Effective Date Expiration Date S flip [facility] STAR [id number] 2017 00:00:00 PLUS Problems This patient has no known problems. Allergies, Adverse Reactions, Alerts Allergy Allergy Status Severity Reaction(s) Onset Inactive Treating Comm ents Source Name Type Date Date Clinician NITRO DRUG Active Other-Cmnt Univer s TRANSDER 07-27 ity of MAL 00:00: [address] Branch ACETAMIN DRUG Active Other-Cmnt 0 Univ ers OPHEN INGREDI - ity of 00:00: [address] Social History Social Habit Start Date Stop Date Quantity Comments Source Sex Assigned At [facility] Alcohol intake 2016-05-01 2016-05-01 Current [facility] es 00:00:00 00:00:00 non-drinker of Medical Ce nter alcohol (finding) Smoking Status Start Date Stop Date Source Current every day smoker 2016-05-01 00:00:00 [facility] Medications Ordered Filled Start Stop Current Ordering Indication Dosage Frequency Signature Comments Components Source Medication Medication Date Date Medication? Clinician (SIG) Name Name OXcarbazepi Yes 600mg [id number] Take [address] ne 2-23 [id number] [facility] by [facility] (TRILEPTAL) 10:23: 3D mouth [...] Type Clinicians Facility Department ID 2021-06-01 Outpatient [facility] [id number] [place] 01:36:29 [id number] [facility] 2020-08-03 2020-08-03 Outpatient MATT VÁSQUEZ [facility] [id number] Univers 10:00:00 10:00:00 MATT SIMPSON [id number] [facility] 2020-08-03 2020-08-03 Outpatient MATT VÁSQUEZ [facility] [id number] [facility] 10:00:00 10:00:00 MATT SIMPSON [facility] 2020-07-25 2020-07-25 Orders Doctor ABE [id number] 00:00:00 00:00:00 Only Unassigned, BK [id number] [place] [facility] [id number] 2019-09-26 2019-09-26 [facility] [id number] Univers 16:00:00 16:00:00 WALLY [facility] 2019-09-26 2019-09-26 Outpatient R RAGHU, [facility] [id number] Univers 16:00:00 16:00:00 WALLY [facility]ager [facility] 2018-10-21 2018-10-21 Telephone Nazanin, [facility] [id number] 00:00:00 00:00:00 Natacha Nguyen [id number] Ade [id number] Professio [id number] nal 204 Building Results Test Description Test Time Test Comments Results Result Comments Source TSH, THIRD GENERATION 2021-06-27 05:15:49 Test Item Value Reference Range Interpretation Comme nts TSH, THIRD GENERATION (test code = 2821) 2.080 UIU/ML 0.400-4.100 HEMOGLOBIN [id number] 03:46:00 Test Item Value Reference Range Interpretation Comments HEMOGLOBIN A1c (test 6.6 % 4.2-5.6 H [employer] code = 43749) ASSOCIATION IDELINES FOR HGB A1C: PREDIABETES/INC REASED [...] UNLESS OTHER PEREZ INDICATED, ALL TESTING PERFORMED [facility] NICLA PATHOLOGY LABOR [facility] [address] [place] [address] DAIRY HUSBANDRY TEACHER: DIANA RUSS M.D. CLIA NUMBER [id number] CAP ACCREDITATION N O. [id number] LIPID [id number] 02:59:52 Test Item Value Reference Range Interpretation [...] MOREINFORMATION , SEE CLIENT ANNOUNCE MENT AT [email or web address] [email or web address] LDL/HDL 4.02 RATIO <3.22 H (test code = 2238)
[2021-08-02 13:08] LABS: Urine Blood Negative (Negative); Urine Glucose Negative (Negative); Urine Protein Negative (Negative); Urine Specific Gravity 1.015 (1.005-1.030)
--- NOTE | 2021-08-02 13:19 | ER ---
Nurse's Notes [facility] Name: Jaimie Amanda Age: 60 yrs Sex: Female : 1960 Arrival Date: 08/02/2021 Time: 11:13 Bed Waiting Private MD: Diagnosis: Low back pain;Dysuria Presentation: 08/02 11:59 Chief complaint: Patient states: has been up all night, got up at 2 m with back pain iw and had blood in urine and having back pain. Coronavirus screen: At this time, the client does not indicate any symptoms associated with coronavirus-19. Ebola Screen: Patient negative for fever greater than or equal to 101.5 degrees Fahrenheit, and additional compatible Ebola Virus Disease symptoms Patient denies exposure to infectious person. Patient denies travel to an Ebola-affected area in the 21 days before illness onset. No symptoms or risks identified at this time. Initial Sepsis Screen: Does the patient meet any 2 criteria? No. Patient's initial sepsis screen is negative. Does the patient have a suspected source of infection? No. Patient's initial sepsis screen is negative. Risk Assessment: Do you want to hurt yourself or someone else? Patient reports no desire to harm self or others. 11:59 Method Of Arrival: Ambulatory iw 11:59 Acuity: ZHEN 3 iw Historical: - Allergies: 12:00 NKA; iw - PMHx: 12:00 Anxiety; depressive disorder; diabetes mellitus; Hypertensive disorder; Hypothyroidism; iw - PSHx: 12:00 Thyroidectomy; iw Vital Signs: 11:59 BP 80 / 63; Pulse 76; Resp 16; Temp 98.4; Pulse Ox 96% on R/A; iw 13:04 BP 104 / 74; Pulse 73; Resp 16; Pulse Ox 97% ; mb7 ED Course: 11:13 Patient arrived in ED. am2 11:33 René Brown PA is PHCP. jmm 11:33 Villa Byrd MD is Attending Physician. [facility] 12:00 Triage completed. iw 12:05 Diego Ang PA is PHCP. cp 12:05 Villa Byrd MD is Attending Physician. cp 13:25 Therese Logan, RN is Primary Nurse. iw Administered Medications: No medications were administered Outcome: 13:19 Discharge ordered by MD. cp 13:26 Patient left the ED. iw Signatures: René Brown PA PA jmm Williams, Irene, CATY RN iw Diego Ang PA PA cp Moreno, Amanda [facility] Colt Radha [facility]
--- NOTE | 2021-08-02 13:20 | EDPHYS ---
Physician Documentation [facility] Name: Jaimie Amanda Age: 60 yrs Sex: Female : 1960 Arrival Date: 08/02/2021 Time: 11:13 Bed Waiting Private MD: ED Physician Villa Byrd HPI: 08/02 13:10 This 60 yrs old Female presents to ER via Ambulatory with complaints of Pain With cp Urination, blood in urine. 13:10 The patient presents with pain that is acute, with no known mechanism of injury. The cp symptoms are located in the mid back area. Onset: The symptoms/episode began/occurred yesterday. Associated signs and symptoms: Pertinent positives: dysuria, hematuria, Pertinent negatives: chest pain, constipation, incontinence, numbness, urinary retention, vomiting, weakness. The problem was sustained from unknown cause. Modifying factors: the patient symptoms are aggravated by movement, walking. Historical: - Allergies: 12:00 NKA; iw - PMHx: 12:00 Anxiety; depressive disorder; diabetes mellitus; Hypertensive disorder; Hypothyroidism; iw - PSHx: 12:00 Thyroidectomy; iw ROS: 13:11 Eyes: Negative for injury, pain, redness, and discharge. cp 13:11 Constitutional: Negative for body aches, chills, fever, poor PO intake. 13:11 ENT: Negative for drainage from ear(s), ear pain, sore throat, difficulty swallowing, difficulty handling secretions. 13:11 Cardiovascular: Negative for chest pain, palpitations. 13:11 Respiratory: Negative for cough, shortness of breath, wheezing. 13:11 Abdomen/GI: Negative for abdominal pain, vomiting, diarrhea, constipation. 13:11 Back: Positive for pain at rest, pain with movement, of the mid back area, Negative for injury or acute deformity. 13:11 : Positive for hematuria, pain with urination. 13:11 Neuro: Negative for altered mental status, dizziness, numbness, weakness. 13:11 All other systems are negative. Exam: 13:13 Head/Face: Normocephalic, atraumatic. cp 13:13 Constitutional: The patient appears in no acute distress, alert, awake, non-toxic, well developed, well nourished. 13:13 Eyes: Periorbital structures: appear normal, Conjunctiva: normal, no exudate, no injection, Sclera: no appreciated abnormality, Lids and lashes: appear normal, bilaterally. 13:13 ENT: External ear(s): are unremarkable, Nose: is normal, Mouth: Lips: moist, Oral mucosa: moist, Posterior pharynx: Airway: no evidence of obstruction, patent. 13:13 Chest/axilla: Inspection: normal. 13:13 Cardiovascular: Rate: normal, Rhythm: regular, Edema: is not appreciated. 13:13 Respiratory: the patient does not display signs of respiratory distress, Respirations: normal, no use of accessory muscles, no retractions, labored breathing, is not present. 13:13 Abdomen/GI: Inspection: abdomen appears normal, Palpation: abdomen is soft and non-tender, in all quadrants. 13:13 Neuro: Orientation: to person, place \T\ time. Mentation: is normal, Motor: moves all fours, strength is normal. Vital Signs: 11:59 BP 80 / 63; Pulse 76; Resp 16; Temp 98.4; Pulse Ox 96% on R/A; iw 13:04 BP 104 / 74; Pulse 73; Resp 16; Pulse Ox 97% ; mb7 MDM: 13:19 Patient medically screened. cp 13:19 Differential diagnosis: Ureterolithiasis UTI, sepsis, low back pain, sciatica. cp 13:19 Data reviewed: vital signs, nurses notes, lab test result(s), urinalysis. Counseling: I cp had a detailed discussion with the patient and/or guardian regarding: the historical points, exam findings, and any diagnostic results supporting the discharge/admit diagnosis, lab results, the need for outpatient follow up, a family practitioner, to return to the emergency department if symptoms worsen or persist or if there are any questions or concerns that arise at home. 13:19 Refusal of service: The patient/guardian displays adequate decision making capability cp and despite a detailed discussion of alternatives, benefits, risks, and consequences refuses: blood draw for labs. patient requesting discharge to home and will return worsening symptoms. 08/02 12:12 Order name: EKG; Complete Time: 12:13 08/02 12:12 Order name: Cardiac monitoring 08/02 12:12 Order name: EKG - Nurse/Tech 08/02 12:12 Order name: Urine Microscopic Only 08/02 13:08 Order name: Urine Dipstick-Ancillary EDAL 08/02 12:12 Order name: IV Saline Lock 08/02 12:12 Order name: Labs collected and sent 08/02 12:12 Order name: O2 Per Protocol 08/02 12:12 Order name: O2 Sat Monitoring 08/02 12:12 Order name: Urine Dipstick-Ancillary (obtain specimen); Complete Time: 13:07 cp Administered Medications: No medications were administered Disposition: 18:20 Co-signature as Attending Physician, Villa Byrd MD. rn Disposition Summary: 08/02/21 13:19 Discharge Ordered Location: Home cp Problem: new cp Symptoms: are unchanged cp Condition: Stable cp Diagnosis - Low back pain cp - Dysuria cp Followup: cp - With: Private Physician - When: 1 - 2 days - Reason: Recheck today's complaints Discharge Instructions: - Discharge Summary Sheet cp - Acute Back Pain, Adult cp - Dysuria cp - Back Exercises cp Forms: - Medication Reconciliation Form cp - Thank You Letter cp - Antibiotic Education cp - Prescription Opioid Use cp Prescriptions: - Mobic 7.5 mg Oral Tablet - take 1 tablet by ORAL route once daily take with food; 20 tablet; Refills: 0, cp Product Selection Permitted Signatures: Dispatcher [employer] Therese Coello RN RN iw Nieto, Roman, MD MD rn Page, Corey, PA PA cp Corrections: (The following items were deleted from the chart) 13:07 12:12 Urine Test ordered. cp ap3
[2021-08-02 13:23] LABS: Urine Bacteria <20 /HPF (<20); Urine RBC <5 /HPF (NONE SEEN)
[2021-08-02 13:39] VITALS: TEMP 98.4
[2021-08-02 13:42] VITALS: BP 104/74; O2SAT 97
--- NOTE | 2021-08-07 07:53 | EKG ---
Test Date: 2021-08-06 Test Time: 02:25:59 Veneer Jointer Offbearer: UMAIR MEASUREMENT RESULTS: Intervals: Rate: 74 NH: 182 QRSD: 94 QT: 392 QTc: 435 [place]: P: 65 NH: 182 QRS: 104 T: 66 INTERPRETIVE STATEMENTS: Normal sinus rhythm Rightward axis Borderline ECG Compared to ECG 08/04/2021 05:49:38 Right-axis deviation now present Electronically Signed On 08-07-21 07:50:38 CDT by Daniel Cespedes
== END 2021-08-02 13:26 | disposition home or self-care (01) ==
LOC: ER 11:08
DX: M54.50 Low back pain, unspecified (principal); R30.0 Dysuria; R31.9 Hematuria, unspecified; E11.9 Type 2 diabetes mellitus without complications; I10 Essential (primary) hypertension
CPT/HCPCS: 81003; 81015; 93005; 99281

== ENCOUNTER 2021-08-03 13:31 | Emergency (ER) | payer OTHER ==
--- OUTSIDE RECORDS SUMMARY | 2021-08-03 13:33 | XMS REPORT | Continuity of Care Document ---
:[address] [facility] t Address [address] [place] [address] Care Team Providers Name Role Phone Sharpless Primary Care Physician RADHA SIMPSON Attending Clinician Unavailable RADHA SIMPSON Attending Clinician Unavailable Doctor Unassigned, Name Attending Clinician Unavailable RAGHU Attending Clinician Unavailable Gramm CHURCH COMMUNICATIONS ADMINISTRATOR, A Attending Clinician Payers Payer Name Policy Type Policy Number Effective Date Expiration Date S flip [facility] STAR [id number] 2017 00:00:00 PLUS Problems This patient has no known problems. Allergies, Adverse Reactions, Alerts Allergy Allergy Status Severity Reaction(s) Onset Inactive Treating Comm ents Source Name Type Date Date Clinician NITRO DRUG Active Other-Cmnt Univer s TRANSDER 07-27 ity of MAL 00:00: [address] Branch ACETAMIN DRUG Active Other-Cmnt 0 Univ ers OPHEN INGREDI - ity of 00:00: [address] Social History Social Habit Start Date Stop Date Quantity Comments Source Sex Assigned At [facility] Alcohol intake 2016-05-01 2016-05-01 Current [facility] es 00:00:00 00:00:00 non-drinker of Medical Ce nter alcohol (finding) Smoking Status Start Date Stop Date Source Current every day smoker 2016-05-01 00:00:00 [facility] Medications Ordered Filled Start Stop Current Ordering Indication Dosage Frequency Signature Comments Components Source Medication Medication Date Date Medication? Clinician (SIG) Name Name OXcarbazepi Yes 600mg [id number] Take [address] ne 2-23 [id number] [facility] by [facility] (TRILEPTAL) 10:23: 3D mouth [...] Facility Department ID 2021-06-01 Outpatient [facility] [id number] [place] 01:36:29 [id number] [facility] 2020-08-03 2020-08-03 Outpatient MATT VÁSQUEZ [facility] [id number] Univers 10:00:00 10:00:00 MATT SIMPSON [id number] [facility] 2020-08-03 2020-08-03 Outpatient MATT VÁSQUEZ [facility] [id number] [facility] 10:00:00 10:00:00 MATT SIMPSON [facility] 2020-07-25 2020-07-25 Orders Doctor ABE [id number] 00:00:00 00:00:00 Only Unassigned, BK 350.1.13.10 Felicity [facility] [id number] 2019-09-26 2019-09-26 [facility] [id number] Univers 16:00:00 16:00:00 WALLY [facility] 2019-09-26 2019-09-26 Outpatient R RAGHU, [facility] [id number] Univers 16:00:00 16:00:00 WALLY yeager [facility] 2018-10-21 2018-10-21 Telephone Nazanin, [facility] [id number] 00:00:00 00:00:00 Natacha Nguyen [id number] Ade [id number] Professio [id number] nal 204 Building Results Test Description Test Time Test Comments Results Result Comments Source TSH, THIRD GENERATION 2021-06-27 05:15:49 Test Item Value Reference Range Interpretation Comme nts TSH, THIRD GENERATION (test code = 2821) 2.080 UIU/ML 0.400-4.100 HEMOGLOBIN [id number] 03:46:00 Test Item Value Reference Range Interpretation Comments HEMOGLOBIN A1c (test 6.6 % 4.2-5.6 H [employer] code = 42970) ASSOCIATION IDELINES FOR HGB A1C: PREDIABETES/INC REASED [...] OTHER PEREZ INDICATED, ALL TESTING PERFORMED [facility] NICSC PATHOLOGY LABOR [facility] [address] [place] [address] FOREST PATHOLOGY TEACHER: DIANA RUSS M.D. CLIA NUMBER [id number] CAP ACCREDITATION N O. [id number] LIPID [id number] 02:59:52 Test Item Value Reference Range Interpretation [...] MOREINFORMATION , SEE CLIENT ANNOUNCE MENT AT [email or web address] [email or web address] LDL/HDL 4.02 RATIO <3.22 H (test code = 2238)
--- NOTE | 2021-08-03 15:23 | ER ---
Nurse's Notes [facility] Name: Jaimie Amanda Age: 60 yrs Sex: Female : 1960 Arrival Date: 08/03/2021 Time: 13:31 Bed Waiting Private MD: Diagnosis: Headache Presentation: 08/03 14:21 Chief complaint: Patient states: Headache began at 0900 this morning - woke up with a ld1 headache and took a tylenol at 1000. N/V/Migraine. Coronavirus screen: At this time, the client does not indicate any symptoms associated with coronavirus-19. Ebola Screen: No symptoms or risks identified at this time. Initial Sepsis Screen: Does the patient meet any 2 criteria? No. Patient's initial sepsis screen is negative. Does the patient have a suspected source of infection? No. Patient's initial sepsis screen is negative. Risk Assessment: Do you want to hurt yourself or someone else? Patient reports no desire to harm self or others. Onset of symptoms was August 03, 2021. 14:21 Method Of Arrival: Ambulatory ld1 14:21 Acuity: ZHEN 3 ld1 Triage Assessment: 14:22 Headache History: The patient has had previous headaches and this one is similar to ld1 previous episodes. General: Appears in no apparent distress. comfortable, Behavior is calm, cooperative, appropriate for age. Pain: Complains of pain in face Pain does not radiate. Pain currently is 9 out of 10 on a pain scale. Quality of pain is described as throbbing, Pain began gradually, Also complains of nausea. EENT: No signs and/or symptoms were reported regarding the EENT system. Neuro: Level of Consciousness is awake, alert, obeys commands, Oriented to person, place, time, situation. Cardiovascular: Capillary refill < 3 seconds Patient's skin is warm and dry. Rhythm is sinus tachycardia. Respiratory: Airway is patent Respiratory effort is even, unlabored. GI: Abdomen is flat, non-distended, Reports nausea, vomiting. : No signs and/or symptoms were reported regarding the genitourinary system. Derm: No signs and/or symptoms reported regarding the dermatologic system. Musculoskeletal: No signs and/or symptoms reported regarding the musculoskeletal system. Historical: - Allergies: 14:22 Nitroglycerin; ld1 14:22 NKA; ld1 - PMHx: 14:22 Anxiety; diabetes mellitus; Hypertensive disorder; Hypothyroidism; depressive disorder; ld1 - PSHx: 14:22 Thyroidectomy; ld1 - Immunization history:: Adult Immunizations up to date, Client reports receiving the 2nd dose of the Covid vaccine. - Social history:: Smoking status: Patient denies any tobacco usage or history of. Patient/guardian denies using alcohol. Screenin:55 Abuse screen: Denies threats or abuse. Denies injuries from another. Nutritional ld1 screening: No deficits noted. Tuberculosis screening: No symptoms or risk factors identified. Fall Risk None identified. Assessment: 17:55 Reassessment: See triage assessment. ld1 17:56 Reassessment: Pt received medication, states "I feel so much better I am ready to go ld1 home." Notified ERP. Vital Signs: 14:21 BP 173 / 95; Pulse 81; Resp 18; Temp 97.6(TE); Pulse Ox 99% on R/A; Weight 74.84 kg; ld1 Height 5 ft. 7 in. (170.18 cm); Pain 9/10; 17:55 BP 163 / 91; Pulse 79; Resp 18; Pulse Ox 100% on R/A; Pain 6/10; ld1 14:21 Body Mass Index 25.84 (74.84 kg, 170.18 cm) ld1 ED Course: 13:31 Patient arrived in ED. am2 13:50 Blas Garay NP is PHCP. pm1 13:50 Tera Raymond MD is Attending Physician. pm1 14:22 Triage completed. ld1 14:22 Arm band placed on right wrist. ld1 17:30 No provider procedures requiring assistance completed. Inserted saline lock: 20 gauge ld1 in right antecubital area, using aseptic technique. 17:55 Patient has correct armband on for positive identification. Placed in gown. Bed in low ld1 position. Call light in reach. Side rails up X2. shelter monitor on. Pulse ox on. NIBP on. Door closed. Noise minimized. Warm blanket given. 17:56 IV discontinued, intact, bleeding controlled, No redness/swelling at site. ld1 Administered Medications: 17:41 Drug: Ketorolac 30 mg Route: IVP; Site: right antecubital; ld1 17:41 Drug: Benadryl (diphenhydrAMINE) 25 mg Route: IVP; Site: right antecubital; ld1 17:41 Drug: Reglan (metoCLOPramide) 10 mg Route: IVP; Site: right antecubital; ld1 Medication: 17:55 VIS not applicable for this client. ld1 Outcome: 15:22 Discharge ordered by MD. pm1 17:53 Discharge ordered by MD. pm1 17:56 Discharged to home ambulatory. ld1 17:56 Condition: stable 17:56 Discharge instructions given to patient, Instructed on discharge instructions, follow up and referral plans. Demonstrated understanding of instructions, follow-up care. 17:58 Patient left the ED. ld1 Signatures: Blas Garay NP [employer] PLANNER pm1 Elisa Gregory am2 Maritza Smith RN RN ld1
--- NOTE | 2021-08-03 15:23 | EDPHYS ---
Physician Documentation [facility] Name: Jaimie Amanda Age: 60 yrs Sex: Female : 1960 Arrival Date: 08/03/2021 Time: 13:31 Bed Waiting Private MD: ED Physician Tera Raymond HPI: 08/03 14:31 This 60 yrs old Female presents to ER via Ambulatory with complaints of Headache. pm1 14:31 The patient complains of pain to the forehead. The patient describes the headache as pm1 aching, constant. Onset: The symptoms/episode began/occurred this morning. Associated signs and symptoms: Pertinent positives: nausea, vomiting, Pertinent negatives: fever. Severity of symptoms: in the emergency department the pain is unchanged. Headache History: The patient has had previous headaches and this one is similar to previous episodes. The symptoms are alleviated by nothing. the symptoms are aggravated by nothing. The patient has experienced similar episodes in the past, multiple times. 14:31 The patient has been recently seen at the [facility] Emergency pm1 Department, yesterday, for unrelated complaints, Dysuria. Historical: - Allergies: 14:22 Nitroglycerin; ld1 14:22 NKA; ld1 - PMHx: 14:22 Anxiety; diabetes mellitus; Hypertensive disorder; Hypothyroidism; depressive disorder; ld1 - PSHx: 14:22 Thyroidectomy; ld1 - Immunization history:: Adult Immunizations up to date, Client reports receiving the 2nd dose of the Covid vaccine. - Social history:: Smoking status: Patient denies any tobacco usage or history of. Patient/guardian denies using alcohol. ROS: 14:31 Constitutional: Negative for fever, chills, and weight loss, Cardiovascular: Negative pm1 for chest pain, palpitations, and edema, Respiratory: Negative for shortness of breath, cough, wheezing, and pleuritic chest pain. 14:31 MS/Extremity: Negative for injury and deformity, Skin: Negative for injury, rash, and discoloration. 14:31 Abdomen/GI: Positive for nausea and vomiting, Negative for abdominal pain. 14:31 Neuro: Positive for headache, Negative for numbness, tingling, weakness. 14:31 All other systems are negative. Exam: 14:31 Constitutional: This is a well developed, well nourished patient who is awake, alert, pm1 and in no acute distress. Head/Face: Normocephalic, atraumatic. 14:31 Back: No spinal tenderness. No costovertebral tenderness. Full range of motion. Skin: Warm, dry with normal turgor. Normal color with no rashes, no lesions, and no evidence of cellulitis. MS/ Extremity: Pulses equal, no cyanosis. Neurovascular intact. Full, normal range of motion. 14:31 Eyes: Exam is negative for acute changes, Pupils: no acute changes, Extraocular movements: no acute changes. 14:31 Neck: Exam negative for acute changes, ROM/movement: no acute changes. 14:31 Cardiovascular: Exam negative for acute changes, Rate: normal, Rhythm: regular, Pulses: no pulse deficits are appreciated. 14:31 Respiratory: Exam negative for acute changes, respiratory distress, shortness of breath. 14:31 Abdomen/GI: Inspection: abdomen appears normal, Palpation: abdomen is soft and non-tender, in all quadrants. 14:31 Neuro: Exam negative for acute changes, Orientation: is normal, Mentation: is normal, Motor: is normal, moves all fours, Gait: is steady, at a normal pace, without difficulty. Vital Signs: 14:21 BP 173 / 95; Pulse 81; Resp 18; Temp 97.6(TE); Pulse Ox 99% on R/A; Weight 74.84 kg; ld1 Height 5 ft. 7 in. (170.18 cm); Pain 9/10; 17:55 BP 163 / 91; Pulse 79; Resp 18; Pulse Ox 100% on R/A; Pain 6/10; ld1 14:21 Body Mass Index 25.84 (74.84 kg, 170.18 cm) ld1 MDM: 14:28 Patient medically screened. pm1 14:28 Data reviewed: vital signs. Data interpreted: Pulse oximetry: on room air is 99 %. pm1 Interpretation: normal. 15:20 ED course: Patient informed registration that she has decided to leave the ER. pm1 16:07 ED course: Patient decided to return. pm1 17:52 ED course: Patient reports resolution of her headache with medications given in the ER pm1 and would like to go home now. 17:52 Counseling: I had a detailed discussion with the patient and/or guardian regarding: the pm1 historical points, exam findings, and any diagnostic results supporting the discharge/admit diagnosis, the need for outpatient follow up, to return to the emergency department if symptoms worsen or persist or if there are any questions or concerns that arise at home. 08/03 14:35 Order name: IV Saline Lock; Complete Time: 17:55 pm1 Administered Medications: 17:41 Drug: Ketorolac 30 mg Route: IVP; Site: right antecubital; ld1 17:41 Drug: Benadryl (diphenhydrAMINE) 25 mg Route: IVP; Site: right antecubital; ld1 17:41 Drug: Reglan (metoCLOPramide) 10 mg Route: IVP; Site: right antecubital; ld1 Disposition: 17:59 Co-signature as Attending Physician, Tera Raymond MD I agree with the assessment and kdr plan of care. Disposition Summary: 08/03/21 17:53 Discharge Ordered Location: Home(08/03/21 17:53) pm1 Problem: new(08/03/21 17:53) pm1 Symptoms: have improved(08/03/21 17:53) pm1 Condition: Stable(08/03/21 17:53) pm1 Diagnosis - Headache(08/03/21 17:53) pm1 Followup: pm1 - With: Emergency Department - When: As needed - Reason: Worsening of condition Followup: pm1 - With: Private Physician - When: 2 - 3 days - Reason: Recheck today's complaints, Continuance of care, Re-evaluation by your physician Discharge Instructions: - Discharge Summary Sheet pm1 - General Headache Without Cause pm1 Forms: - Medication Reconciliation Form pm1 - Thank You Letter pm1 - Antibiotic Education pm1 - Prescription Opioid Use pm1 Signatures: Tera Raymond MD MD [facility] Blas Garay NP [facility] pm1 Maritza Smith RN RN ld1 Corrections: (The following items were deleted from the chart) 16:11 15:22 Home pm1 pm1 16:11 15:22 new pm1 pm1 16:11 15:22 are unchanged pm1 pm1 16:11 15:22 Undetermined pm1 pm1 16:11 15:22 Headache pm1 pm1
[2021-08-03] MEDS ORDERED: METOCLOPRAMIDE 10 MG/2mL INJ ONE (17:48)
[2021-08-03] MEDS ORDERED: DIPHENHYDRAMINE 50 MG/ML VIAL ONE (17:48)
[2021-08-03] MEDS ORDERED: KETOROLAC 30 MG/ML INJ ONE (17:48)
[2021-08-03 18:03] VITALS: TEMP 97.6
[2021-08-03 18:04] VITALS: BP 163/91; O2SAT 100
== END 2021-08-03 17:58 | disposition home or self-care (01) ==
LOC: ER 13:31
DX: R51.9 Headache, unspecified (principal); R11.2 Nausea with vomiting, unspecified; E11.9 Type 2 diabetes mellitus without complications; I10 Essential (primary) hypertension; Z88.8 Allergy status to other drugs, medicaments and biological substances
CPT/HCPCS: 96375; 96374; 99284; J2765; J1200

== ENCOUNTER 2021-08-04 05:15 | Inpatient (IN) | payer OTHER ==
[2021-08-04] MEDS ORDERED: PROMETHAZINE INJ 25 MG/ML AMP ONE (05:37)
[2021-08-04] MEDS ORDERED: NA CHLORIDE 0.9% 1,000 ML ONE ×2 (05:37→11:31)
--- OUTSIDE RECORDS SUMMARY | 2021-08-04 05:48 | XMS REPORT | Continuity of Care Document ---
:1960 Author Organization [facility] t Address [address] [place] [address] Care Team Providers Name Role Phone Sharpless Primary Care Physician RADHA SIMPSON Attending Clinician Unavailable RADHA SIMPSON Attending Clinician Unavailable Doctor Unassigned, Name Attending Clinician Unavailable RAGHU Attending Clinician Unavailable Gramm SCIENTIFIC WRITER, A Attending Clinician Payers Payer Name Policy Type Policy Number Effective Date Expiration Date S flip [facility] [id number] 2017 00:00:00 PLUS Problems This patient has no known problems. Allergies, Adverse Reactions, Alerts Allergy Allergy Status Severity Reaction(s) Onset Inactive Treating Comm ents Source Name Type Date Date Clinician NITRO DRUG Active Other-Cmnt 0 Univer s TRANSDER 07-27 ity of MAL 00:00: [address] ACETAMIN DRUG Active Other-Cmnt 0 Univ ers OPHEN INGREDI - ity of 00:00: [address] Social History Social Habit Start Date Stop Date Quantity Comments Source Sex Assigned At [facility] Alcohol intake 2016-05-01 2016-05-01 Current [facility] es 00:00:00 00:00:00 non-drinker of Medical Ce nter alcohol (finding) Smoking Status Start Date Stop Date Source Current every day smoker 2016-05-01 00:00:00 [facility] Medications Ordered Filled Start Stop Current Ordering Indication Dosage Frequency Signature Comments Components Source Medication Medication Date Date Medication? Clinician (SIG) Name Name OXcarbazepi Yes 600mg [id number] Take [address] ne 2-23 [id number] mg by [facility] (TRILEPTAL) 10:23: 3D mouth [...] Facility Department ID 2021-06-01 Outpatient [facility] [id number] [place] 01:36:29 [id number] [facility] 2020-08-03 2020-08-03 Outpatient MATT VÁSQUEZ [facility] [id number] Univers 10:00:00 10:00:00 MATT SIMPSON [id number] [facility] 2020-08-03 2020-08-03 Outpatient MATT VÁSQUEZ [facility] [id number] [facility] 10:00:00 10:00:[address] [facility] 2020-07-25 2020-07-25 Orders Doctor ABE [id number] 00:00:00 00:00:00 Only Unassigned, BK [id number] [place] [facility] [id number] 2019-09-26 2019-09-26 [facility] [id number] Univers 16:00:00 16:00:[address] [facility] 2019-09-26 2019-09-26 Outpatient R RAGHU, [facility] [id number] Univers 16:00:00 16:00:00 WALLY yeager [facility] 2018-10-21 2018-10-21 Telephone Nazanin, [facility] [id number] 00:00:00 00:00:00 Natacha Nguyen [id number] Ade [id number] Professio [id number] nal [address] Building Results Test Description Test Time Test Comments Results Result Comments Source TSH, THIRD GENERATION 2021-06-27 05:15:49 Test Item Value Reference Range Interpretation Comme nts TSH, THIRD GENERATION (test code = 2821) 2.080 UIU/ML 0.400-4.100 HEMOGLOBIN [id number] 03:46:00 Test Item Value Reference Range Interpretation Comments HEMOGLOBIN A1c (test 6.6 % 4.2-5.6 H [facility] code = 93765) ASSOCIATION IDELINES FOR HGB A1C: PREDIABETES/INC REASED [...] UNLESS OTHER PEREZ INDICATED, ALL TESTING PERFORMED [facility] PATHOLOGY LABOR [facility] [address] [place] [address] DIRECTOR OF MARKETING COMMUNICATIONS: DIANA RUSS M.D. CLIA NUMBER [id number] CAP ACCREDITATION N O. [id number] LIPID [id number] 02:59:52 Test Item Value Reference Range Interpretation [...] MOREINFORMATION , SEE CLIENT ANNOUNCE MENT AT [email or web address] RATIO LDL/HDL 4.02 RATIO <3.22 H (test code = 2238)
[2021-08-04 06:00] LABS: Absolute Lymphocytes (CBC) 1.3 K/uL (0.7-4.9); Lymphocytes % 8.2 % (15.3-44.8); MPV 6.6 fL (7.6-11.3)
[2021-08-04] MEDS ORDERED: cloNIDine HCL 0.1 MG TAB ONE (06:07)
[2021-08-04] MEDS ORDERED: ONDANSETRON 4 MG/2 ML VIAL ONE (06:07)
[2021-08-04 06:22] LABS: Albumin 4.4 g/dL (3.4-5.0); Bilirubin Total 0.4 mg/dL (0.2-1.0); Potassium 3.5 mmol/L (3.5-5.1); Protein, Total 8.4 g/dL (6.4-8.2)
--- NOTE | 2021-08-04 06:36 | EDPHYS ---
Physician Documentation [facility] Name: Jaimie Amanda Age: 60 yrs Sex: Female : 1960 Arrival Date: 08/04/2021 Time: 05:18 Bed 20 Private MD: ED Physician Villa Byrd HPI: 08/04 05:30 This 60 yrs old Female presents to ER via Unassigned with complaints of Vomiting. rn 05:30 The patient presents to the emergency department with nausea, vomiting. Onset: The rn symptoms/episode began/occurred yesterday. Possible causes: unknown. The symptoms are aggravated by nothing. The symptoms are alleviated by nothing. Associated signs and symptoms: Pertinent positives: nausea, vomiting, Pertinent negatives: fever, GI bleeding. Severity of symptoms: At their worst the symptoms were. 05:31 The patient has experienced similar episodes in the past. The patient has been recently rn seen at the [facility] Emergency Department. Pt seen here last couple of days for headache, vomiting. Pt states headache improved but still vomiting. Family member reports several episodes of vomiting. NO blood in emesis. Denies current abd pain. . Historical: - Allergies: 05:34 Nitroglycerin; ll3 - PMHx: 05:34 Anxiety; depressive disorder; diabetes mellitus; Hypertensive disorder; Hypothyroidism; ll3 - PSHx: 05:34 Thyroidectomy; ll3 - Immunization history:: Client reports receiving the 2nd dose of the Covid vaccine. - Social history:: Smoking status: Patient reports the use of cigarette tobacco products, smokes one pack cigarettes per day. Reported history of juuling and/or vaping. - Family history:: not pertinent. - Hospitalizations: : No recent hospitalization is reported. ROS: 05:31 Constitutional: Negative for fever, chills, and weight loss, Eyes: Negative for injury, rn pain, redness, and discharge, Neck: Negative for injury, pain, and swelling, Cardiovascular: Negative for chest pain, palpitations, and edema, Respiratory: Negative for shortness of breath, cough, wheezing, and pleuritic chest pain, Abdomen/GI: Negative for abdominal pain, diarrhea, and constipation, Back: Negative for injury and pain, MS/Extremity: Negative for injury and deformity, Skin: Negative for injury, rash, and discoloration, Neuro: Negative for numbness, tingling, and seizure. Exam: 05:31 Constitutional: This is a well developed, well nourished patient who is awake, alert, rn holding emesis bag in hand, small amount of emesis in bag Head/Face: Normocephalic, atraumatic. Eyes: Periorbital areas with no swelling, redness, or edema. ENT: dry MM Cardiovascular: Regular rate and rhythm. No pulse deficits. Respiratory: No increased work of breathing, no retractions or nasal flaring. Abdomen/GI: soft, non-tender, non-distended Skin: Warm, dry MS/ Extremity: Pulses equal, no cyanosis. Neuro: Awake and alert, GCS 15 Vital Signs: 05:39 BP 201 / 91; Pulse 97; Resp 20; Temp 97.6(TE); Pulse Ox 96% on R/A; Weight 77.11 kg ll3 (R); Height 5 ft. 7 in. (170.18 cm) (R); 06:25 BP 144 / 85; Pulse 78; Resp 13; Pulse Ox 99% on R/A; kd3 07:15 BP 178 / 79; Pulse 80; Resp 18; Pulse Ox 100% ; Pain 2/10; jh6 05:39 Body Mass Index 26.63 (77.11 kg, 170.18 cm) ll3 MDM: 05:19 Patient medically screened. rn 06:31 Differential diagnosis:. Data reviewed: vital signs, nurses notes, lab test result(s), rn EKG, and as a result, I will admit patient. Counseling: I had a detailed discussion with the patient and/or guardian regarding: the historical points, exam findings, and any diagnostic results supporting the discharge/admit diagnosis, lab results, the need for further work-up and treatment in the hospital. 06:34 Response to treatment: the patient's symptoms have mildly improved after treatment, and rn as a result, I will admit patient. Admission orders: after a detailed discussion of the patient's condition and case, the admit orders are written by me. ED course: Admitted to hospitalist service for vomiting and hyponatremia. . 08/04 05:30 Order name: CBC with Diff rn 08/04 05:30 Order name: CMP; Complete Time: 06: rn 08/04 05:30 Order name: Lipase; Complete Time: 06: rn 08/04 06:51 Order name: COVID-19/FLU A+B (Document "Date of Onset" if Symptomatic) bb 08/04 06:52 Order name: Lipid Profile EDMS 08/04 06:52 Order name: Magnesium EDMS 08/04 06:52 Order name: Osmolality, Serum EDMS 08/04 06:52 Order name: Phosphorus EDMS 08/04 06:52 Order name: T4 Free EDMS 08/04 06:52 Order name: Thyroid Stimulating Hormone EDMS 08/04 06:52 Order name: UR CREAT EDMS 08/04 06:52 Order name: UR POTASSIUM EDMS 08/04 06:52 Order name: UR PROTEIN EDMS 08/04 06:52 Order name: UR SODIUM EDMS 08/04 06:52 Order name: Urinalysis EDMS 08/04 06:52 Order name: Uric Acid EDMS 08/04 06:52 Order name: Basic Metabolic Panel EDMS 08/04 06:52 Order name: Basic Metabolic Panel EDMS 08/04 06:52 Order name: Basic Metabolic Panel EDMS 08/04 06:52 Order name: Basic Metabolic Panel EDMS 08/04 06:52 Order name: Basic Metabolic Panel EDMS 08/04 06:52 Order name: Basic Metabolic Panel EDMS 08/04 06:52 Order name: Basic Metabolic Panel EDMS 08/04 06:54 Order name: Osmolality, Urine EDMS 08/04 07:38 Order name: Urine Dipstick-Ancillary EDMS 08/04 08:19 Order name: CT EDMS 08/04 08:30 Order name: RAD EDMS 08/04 08:33 Order name: SARS-COV-2 RT PCR EDMS 08/04 08:42 Order name: Urinalysis EDMS 08/04 11:33 Order name: Glucose, Ancillary Testing EDMS 08/04 05:29 Order name: IV Start; Complete Time: 05:56 rn 08/04 05:30 Order name: Cardiac monitoring; Complete Time: 06:07 rn 08/04 05:30 Order name: EKG; Complete Time: 05:31 rn 08/04 05:30 Order name: EKG - Nurse/Tech; Complete Time: 05:56 rn 08/04 06:39 Order name: CONS Physician Consult EDMS Administered Medications: 05:38 Drug: Phenergan (promethazine) 12.5 mg Route: IVP; Site: right antecubital; kd3 06:07 Drug: NS 0.9% 1000 ml Route: IV; Rate: 1 bolus; Site: left antecubital; kd3 06:07 Drug: Zofran (Ondansetron) 4 mg Route: IVP; Site: left antecubital; kd3 06:07 Drug: cloNIDine 0.1 mg Route: PO; kd3 Disposition Summary: 08/04/21 06:35 Hospitalization Ordered Hospitalization Status: Inpatient Admission rn Provider: Ez Byrd rn Location: Telemetry/[facility]Sur (Inpatient) rn Condition: Stable rn Problem: an ongoing problem rn Symptoms: have improved rn Bed/Room Type: Standard rn Room Assignment: 220(08/04/21 13:34) iw Diagnosis - Hypo-osmolality and hyponatremia rn - Vomiting, unspecified rn Forms: - Medication Reconciliation Form rn - SBAR form rn Signatures: Dispatcher [employer] EDTherese Roth RN RN iw Villa Byrd MD MD rn Loubet, Lynsea, RN RN 3 Lidia Guan RN RN kd3 Corrections: (The following items were deleted from the chart) 13:34 06:35 rn iw
--- NOTE | 2021-08-04 06:36 | ER ---
Nurse's Notes [facility] Name: Jaimie Amanda Age: 60 yrs Sex: Female : 1960 Arrival Date: 08/04/2021 Time: 05:18 Bed 20 Private MD: Diagnosis: Hypo-osmolality and hyponatremia;Vomiting, unspecified Presentation: 08/04 05:31 Chief complaint: Patient states: Vomiting since yesterday at 11 PM, denies diarrhea or ll3 constipation. Coronavirus screen: Vaccine status: Patient reports receiving the 2nd dose of the covid vaccine. vomiting. Ebola Screen: No symptoms or risks identified at this time. Initial Sepsis Screen:. Risk Assessment: Do you want to hurt yourself or someone else? Patient reports no desire to harm self or others. Onset of symptoms was August 03, 2021 at 23:00. Activity prior to arrival: vomiting. 05:31 Method Of Arrival: Ambulatory ll3 05:31 Acuity: ZHEN 3 ll3 06:26 Initial Sepsis Screen: Does the patient meet any 2 criteria? No. Patient's initial kd3 sepsis screen is negative. Does the patient have a suspected source of infection? No. Patient's initial sepsis screen is negative. Triage Assessment: 05:34 General: Appears uncomfortable, Behavior is cooperative, Vomitting. Reports feeling ill ll3 for. GI: Reports nausea, vomiting, Dry heaving Patient currently denies constipation, diarrhea. GI: Abdomen is round non-distended, Pt is actively vomiting clear fluid, Stools are reported to be normal. Derm: Skin is clammy. 06:26 Pain: Complains of pain in headache. kd3 Historical: - Allergies: 05:34 Nitroglycerin; ll3 - PMHx: 05:34 Anxiety; depressive disorder; diabetes mellitus; Hypertensive disorder; Hypothyroidism; ll3 - PSHx: 05:34 Thyroidectomy; ll3 - Immunization history:: Client reports receiving the 2nd dose of the Covid vaccine. - Social history:: Smoking status: Patient reports the use of cigarette tobacco products, smokes one pack cigarettes per day. Reported history of juuling and/or vaping. - Family history:: not pertinent. - Hospitalizations: : No recent hospitalization is reported. Screenin:25 Abuse screen: Denies threats or abuse. Denies injuries from another. Nutritional kd3 screening: No deficits noted. Tuberculosis screening: No symptoms or risk factors identified. Fall Risk IV access (20 points). Assessment: 07:41 General: Appears in no apparent distress. Behavior is calm, cooperative. Pain: jh6 Complains of pain in epigastric area. GI: Reports nausea, vomiting. Vital Signs: 05:39 BP 201 / 91; Pulse 97; Resp 20; Temp 97.6(TE); Pulse Ox 96% on R/A; Weight 77.11 kg ll3 (R); Height 5 ft. 7 in. (170.18 cm) (R); 06:25 BP 144 / 85; Pulse 78; Resp 13; Pulse Ox 99% on R/A; kd3 07:15 BP 178 / 79; Pulse 80; Resp 18; Pulse Ox 100% ; Pain 2/10; jh6 05:39 Body Mass Index 26.63 (77.11 kg, 170.18 cm) ll3 ED Course: 05:18 Patient arrived in ED. bp1 05:19 Villa Byrd MD is Attending Physician. rn 05:34 Triage completed. ll3 05:34 Arm band placed on Patient placed in an exam room, on a stretcher, on pulse oximetry. ll3 05:38 Lidia Guan RN is Primary Nurse. kd3 05:56 Inserted saline lock: 24 gauge in left antecubital area, using aseptic technique. Blood ds4 collected. Missed attempt(s): 22 gauge in right antecubital area. Bleeding controlled, band aid applied, catheter tip intact. 06:25 Patient has correct armband on for positive identification. kd3 06:25 No provider procedures requiring assistance completed. kd3 06:35 Ez Byrd MD is Hospitalizing Provider. rn 07:02 COVID swab sent to lab. tm3 Administered Medications: 05:38 Drug: Phenergan (promethazine) 12.5 mg Route: IVP; Site: right antecubital; kd3 06:07 Drug: NS 0.9% 1000 ml Route: IV; Rate: 1 bolus; Site: left antecubital; kd3 06:07 Drug: Zofran (Ondansetron) 4 mg Route: IVP; Site: left antecubital; kd3 06:07 Drug: cloNIDine 0.1 mg Route: PO; kd3 Medication: 06:27 VIS not applicable for this client. kd3 Outcome: 06:35 Decision to Hospitalize by Provider. rn 14:33 Patient left the ED. eb Signatures: Agustín Perry tm3 Villa Byrd MD MD rn Swanson, Donovan ds4 Nikkie Merrill Brittany bp1 Loubet, Lynsea RN RN ll3 Lidia Guan RN RN kd3 Viridiana Noonan RN RN jh6
[2021-08-04] MEDS ORDERED: NA CHLORIDE 0.9% 1,000 ML IV SCH ×3 (07:00→12:15)
[2021-08-04 07:38] LABS: Urine Blood 1+ (Negative); Urine Glucose Negative (Negative); Urine Protein Negative (Negative); Urine Specific Gravity 1.015 (1.005-1.030)
--- NOTE | 2021-08-04 07:46 | P.HP ---
Certification for Inpatient Patient admitted to: Inpatient With expected LOS: >2 Midnights Practitioner: I am a practitioner with admitting privileges, knowledge of patient current condition, hospital course, and medical plan of care. Services: Services provided to patient in accordance with Admission requirements found in Title 42 Section 412.3 of the Code of Federal Regulations Patient History Date of Service: 08/04/21 Reason for admission: hyponatremia, intractable vomiting History of Present Illness: 60yo F, PMH: HTN, NIDDM2, hypothyroidism (s/p thyroidectomy), hyponatremia Presents to ED with headache and nausea/vomiting. Patient has presented to ED ~5 times in last 2 weeks for similar issues. She reports throwing up what she eats/drinks. She is unable to quantify how often/much in a day. Nothing in particular aggravates her nausea/vomiting, seems to occur randomly. She has been given antiemetics and pain medication in prior ER visits, imaging without any acute findings. She reports anxiety and she takes klonopin that helps with anxiety and headaches. Denies recent medication change, no fever/chills, no UTI symptoms, no change in bowel habits, no numbness/tingling. Review of EMR reveals prior concern for beer potomania. Patient denies any alcohol drink in several weeks. Smokes tobacco. Did not want to answer any further questions due to headache. In the ED, she was found to have severe hyponatremia. Allergies nitroglycerin Adverse Reaction (Verified 07/05/18 06:27) severe hypotension Home Medications: Benztropine Mesylate [Cogentin] 0.5 mg PO BEDTIME 03/10/21 Doxepin HCl [Sinequan] 50 mg PO BEDTIME 03/10/21 Levothyroxine Sodium [Synthroid] 137 mcg PO DAILY 03/10/21 Linaclotide [Linzess] 72 mcg PO DAILYPRN PRN 03/10/21 Losartan/Hydrochlorothiazide [Losartan-Hctz 100-25 mg Tab] 1 each PO DAILY 03/10/21 Metformin HCl [Glucophage] 500 mg PO BIDWM 03/10/21 Metoclopramide HCl [Reglan] 10 mg PO QID 03/10/21 OXcarbazepine [Trileptal] 2 tab PO DAILY AFTER SUPPER 03/10/21 OXcarbazepine [Trileptal] 600 mg PO DAILY 03/10/21 Omeprazole [Prilosec] 40 mg PO DAILY 03/10/21 Propranolol [Inderal] 10 mg PO BIDP PRN 03/10/21 Risperidone [Risperdal] 2 mg PO BID 03/10/21 Zolpidem Tartrate [Ambien] 10 mg PO BEDTIME 03/10/21 cloNIDine HCL [Catapres] 0.3 mg PO Q8HP PRN 03/10/21 clonazePAM [Klonopin] 1 mg PO TIDP PRN 03/10/21 ondansetron HCL [Zofran] 4 mg PO Q8HP PRN 03/10/21 - Past Medical/Surgical History Diabetic: No -: Hepatitis -: Anxiety -: HTN -: Hypothyroidism -: Alcoholic induced seizures -: Thyroidectomy -: Plastic surgery breast -: hernia repair Psychosocial/ Personal History: Patient lives at home with her mother - Family History Mother -: Hypertension, Diabetes, Cancer Notes: Thyroid, Knee replacement Father -: Heart disease, Hypertension, Diabetes - Social History Smoking Status: Current every day smoker Alcohol use: Yes CD- Drugs: No Caffeine use: Yes Place of Residence: Home Review of Systems 10-point ROS is otherwise unremarkable Physical Examination - Physical Exam General: Oriented x3, Other (appears uncomfortable) HEENT: EOMI, Sclerae nonicteric Neck: Supple, No LAD Respiratory: Clear to auscultation bilaterally, Normal air movement Cardiovascular: No edema, Regular rate/rhythm Gastrointestinal: Soft and benign, Non-distended, No tenderness Musculoskeletal: No contractures Integumentary: No significant lesion Neurological: Normal strength at 5/5 x4 extr, Sensation intact - Studies Laboratory Data (last 24 hrs) 08/04/21 05:45: Sodium 114 L*, Potassium 3.5, BUN 10, Creatinine 0.69, Glucose 199 H, Total Bilirubin 0.4, AST 17, ALT 33, Alkaline Phosphatase 127 H, Lipase 35 L 08/04/21 05:45: WBC 15.6 H D, Hgb 14.0, Hct 40.0, Plt Count 339 Assessment and Plan - Advance Directives Does patient have a Living Will: No Does patient have a Durable POA for Healthcare: No Physician Review Additional Text: Problem List Hyponatremia intractable nausea/vomiting HTN Hypothyroidism NIDDM2 anxiety patient not wanting to give further history at this time, initially did not want to be admitted per ER physician Na: 114, glc only 199; sodium deficit ~900 Na(07/28): 117; goal to slowly correct Na appears dry on exam as well, start with NS @ 200 ml/hr BMP q4h patient with nonfocal neuro exam, symptoms ongoing for days suspect n/v and headache secondary to hyponatremia unclear etiology, pt with h/o hyponatremia, states she hasn't drank in a few weeks. beer potomania vs losartan vs pre-renal state serum osm, tsh, lipids, urine electrolytes ordered nephrology consulted VTE: lovenox Code: full Dispo: home, ~3 days Time Spent Managing Pts Care (In Minutes): 75
[2021-08-04 07:56] LABS: UR PROTEIN 8.3 mg/dL (<11.9)
--- NOTE | 2021-08-04 08:19 | RAD REPORT ---
EXAM DESCRIPTION: CT - Head Brain Wo Cont - 08/04/2021 8:13 am CLINICAL HISTORY: intractable vomiting, hyponatremia, confusion Headache, drowsiness COMPARISON: Head Brain Wo Cont dated 04/06/2021; Head Brain Wo Cont dated 03/09/2021 TECHNIQUE: All CT scans are performed using dose optimization technique as appropriate and may inclu de automated exposure control or mA/KV adjustment according to patient size. FINDINGS: No intracranial hemorrhage, hydrocephalus or extra-axial fluid collection.Moderate brain a trophy.No areas of brain edema or evidence of midline shift. The paranasal sinuses and mastoids are clear. The calvarium is intact. IMPRESSION: No acute intracranial abnormality.
--- NOTE | 2021-08-04 08:29 | RAD REPORT ---
EXAM DESCRIPTION: RAD - Chest Single View - 08/04/2021 8:19 am CLINICAL HISTORY: intractable vomiting; r/o aspiration Chest pain. COMPARISON: Chest Single View dated 05/30/2021; Chest Single View dated 05/29/2021; Chest Single View dated 05/09/2021; Chest Single View dated 04/03/2021; Lumbar Spine 3 Views dated 06/03/2021 FINDINGS: Portable technique limits examination quality. The lungs are grossly clear. The heart is normal in size. No displaced fractures. IMPRESSION: No acute intrathoracic process suspected.
[2021-08-04 08:30] VITALS: BMI 33.3
[2021-08-04 08:31] LABS: Blood Morphology Comment NOT SEEN (NOT SEEN); Platelet Estimate ADEQ; White Blood Cell Scan OK (OK)
[2021-08-04 08:42] LABS: Urine Appearance Clear (Clear); Urine Bilirubin Negative (Negative); Urine Blood 1+ (Negative); Urine Color Yellow (Yellow); Urine Glucose Negative (Negative); Urine Protein Negative (Negative); Urine Urobilinogen 0.2 mg/dL (0.2-1.0)
[2021-08-04] MEDS: METOCLOPRAMIDE 10 MG/2mL INJ IV PRN ×3 (08:49→21:06)
[2021-08-04] MEDS ORDERED: METOCLOPRAMIDE 10 MG/2mL INJ ONE (08:50)
[2021-08-04 08:57] LABS: Urine Microscopic Reflex ORDER UMIC
[2021-08-04 08:58] LABS: Urine Bacteria NONE SEEN /HPF (<20); Urine RBC <5 /HPF (NONE SEEN)
[2021-08-04 09:06] LABS: Thyroid Stimulating Hormone 7.74 uIU/mL (0.360-3.740)
[2021-08-04 09:07] LABS: Magnesium 1.3 mg/dL (1.8-2.4)
[2021-08-04] MEDS ORDERED: clonazePAM 0.5 MG TAB PO PRN (09:28)
[2021-08-04 10:16] LABS: Potassium 3.9 mmol/L (3.5-5.1)
[2021-08-04] MEDS: ENOXAPARIN 40 MG/0.4 ML SQ SCH (11:00)
[2021-08-04] MEDS: INSULIN -REGULAR HUMAN 50 UNIT/0.5 ML ML SQ SCH ×3 (11:30→21:00)
[2021-08-04] MEDS ORDERED: ACETAMIN/CAFFEINE/BUTALB TAB PO ONE (11:30)
[2021-08-04] MEDS ORDERED: ENOXAPARIN 40 MG/0.4 ML SQ ONE (11:31)
[2021-08-04] MEDS ORDERED: clonazePAM 0.5 MG TAB ONE (11:31)
[2021-08-04] MEDS: ACETAMIN/CAFFEINE/BUTALB TAB PO PRN ×2 (11:42→17:14)
[2021-08-04] MEDS ORDERED: PROPRANOLOL HCL 10 MG TAB PO PRN (12:16)
[2021-08-04] MEDS ORDERED: CLONIDINE HCL 0.3 MG TAB PO PRN (12:16)
--- NOTE | 2021-08-04 14:13 | P.CNS ---
Date of Consult: 08/04/21 Reason for Consult: Hyponatremia Requesting Physician: Ez Byrd Chief Complaint: hyponatremia, intractable vomiting History of Present Illness: 60F w/ PMHx of anxiety disorder, Htn on Losartan/HCTZ, DM2, hypothyroidism (s/p thyroidectomy), & hyponatremia who p/w N/V/LO. She has several other psyche meds listed but she is unsure which ones she's taking. Found to have severe hyponatremia w/ serum Na 114. Urine chem showed high ADH state. She received NS IV fluid. Serum Na increased to 122 in 9 hrs. NS gtt was stopped & she received DDAVP. Allergies nitroglycerin Adverse Reaction (Verified 07/05/18 06:27) severe hypotension Home Medications: Benztropine Mesylate [Cogentin] 0.5 mg PO BEDTIME 03/10/21 Doxepin HCl [Sinequan] 50 mg PO BEDTIME 03/10/21 Levothyroxine Sodium [Synthroid] 137 mcg PO DAILY 03/10/21 Linaclotide [Linzess] 72 mcg PO DAILYPRN PRN 03/10/21 Losartan/Hydrochlorothiazide [Losartan-Hctz 100-25 mg Tab] 1 each PO DAILY 03/10/21 Metformin HCl [Glucophage] 500 mg PO BIDWM 03/10/21 Metoclopramide HCl [Reglan] 10 mg PO QID 03/10/21 OXcarbazepine [Trileptal] 2 tab PO DAILY AFTER SUPPER 03/10/21 OXcarbazepine [Trileptal] 600 mg PO DAILY 03/10/21 Omeprazole [Prilosec] 40 mg PO DAILY 03/10/21 Propranolol [Inderal] 10 mg PO BIDP PRN 03/10/21 Risperidone [Risperdal] 2 mg PO BID 03/10/21 Zolpidem Tartrate [Ambien] 10 mg PO BEDTIME 03/10/21 cloNIDine HCL [Catapres] 0.3 mg PO Q8HP PRN 03/10/21 clonazePAM [Klonopin] 1 mg PO TIDP PRN 03/10/21 ondansetron HCL [Zofran] 4 mg PO Q8HP PRN 03/10/21 - Past Medical/Surgical History Diabetic: No -: Hepatitis -: Anxiety -: HTN -: Hypothyroidism -: Alcoholic induced seizures -: Thyroidectomy -: Plastic surgery breast -: hernia repair Psychosocial/ Personal History: Patient lives at home with her mother - Family History Mother Medical History: Hypertension, Diabetes, Cancer Notes: Thyroid, Knee replacement Father Medical History: Heart disease, Hypertension, Diabetes - Social History Smoking Status: Current every day smoker Alcohol use: Yes CD- Drugs: No Caffeine use: Yes Place of Residence: Home Review of Systems General: Unremarkable Eyes: Unremarkable ENT: Unremarkable Respiratory: Unremarkable Cardiovascular: Unremarkable Gastrointestinal: Nausea, Vomiting Genitourinary: Unremarkable Musculoskeletal: Unremarkable Integumentary: Unremarkable Neurological: Other (+headache) Lymphatics: Unremarkable Physical Examination Temp Pulse Resp BP Pulse Ox 98.0 F 85 17 178/80 H 99 08/04/21 08:00 08/04/21 08:00 08/04/21 08:00 08/04/21 08:00 08/04/21 08:00 General: In no apparent distress HEENT: Atraumatic, Normocephalic Neck: Supple, JVD not distended Respiratory: Clear to auscultation bilaterally, Other (symmetric chest expansion) Cardiovascular: No rubs, No murmurs Gastrointestinal: Soft and benign, No guarding Musculoskeletal: No clubbing Integumentary: No warmth Neurological: Normal speech, Normal tone Lymphatics: No axilla or inguinal lymphadenopathy Urinary: Other (no bladder distention) External genitalia: Deferred Rectal: Deferred Laboratory Data (last 24 hrs) 08/04/21 05:45: Uric Acid 2.2 L 08/04/21 05:45: Phosphorus 3.0, Magnesium 1.3 L* D, Triglycerides 150, Cholesterol 312 H, HDL Cholesterol 77 H, Cholesterol/HDL Ratio 4.05 08/04/21 05:45: Sodium 114 L*, Potassium 3.5, BUN 10, Creatinine 0.69, Glucose 199 H, Total Bilirubin 0.4, AST 17, ALT 33, Alkaline Phosphatase 127 H, Lipase 35 L 08/04/21 05:45: WBC 15.6 H D, Hgb 14.0, Hct 40.0, Plt Count 339 Conclusions/Impression: # Hyponatremia 2/2 high ADH state from HCTZ use & anxiety disorder +/- low solute intake Initial serum Na 114, increased to 122 after 9 hrs Urine chem c/w high ADH state BNP not sig elevated NS gtt d/c'ed. DDAVP received. Monitor serum Na q6h Avoid thiazide permanently Unclear which other psyche meds she's taking that may also be contributory to her hypoNa Replete K prn to keep serum K at 4.0 or higher Avoid hypoMg Encourage po solid food intake Antiemetics prn for nausea/vomiting Check serum Na q4-6h # HypoMg Slow Mag po bid x 4 doses # Anxiety disorder Will need to review psyche meds regimen # Htn BP above goal Start Amlodipine 5 mg po daily # DM2 Mngt per primary team # Hypothyroidism (s/p thyroidectomy) Levothyroxine
[2021-08-04] MEDS ORDERED: Magnesium Sulfate 2gm IVPB 2 G/50 ML BAG IV ONE (15:00)
[2021-08-04 16:13] LABS: Potassium 3.5 mmol/L (3.5-5.1)
[2021-08-04] MEDS: NICOTINE 14 MG/PAT TD SCH (16:24)
[2021-08-04] MEDS ORDERED: ONDANSETRON 4 MG/2 ML VIAL IV PRN ×2 (16:46→22:30)
[2021-08-04] MEDS ORDERED: DESMOPRESSIN 4 MCG/ML AMP IV STA (16:47)
[2021-08-04 20:40] LABS: Potassium 3.5 mmol/L (3.5-5.1)
[2021-08-04] MEDS: clonazePAM 1 MG TAB PO PRN (21:11)
[2021-08-04] MEDS: RISPERIDONE 1 MG TABLET PO SCH (21:11)
[2021-08-04 23:20] LABS: Magnesium 1.9 mg/dL (1.8-2.4); Potassium 3.2 mmol/L (3.5-5.1)
[2021-08-05 03:55] LABS: Absolute Lymphocytes (CBC) 2.2 K/uL (0.7-4.9); Hematocrit 36.1 % (36.0-45.0); MPV 6.7 fL (7.6-11.3); RBC Red Blood Cell Count 3.98 M/uL (3.86-4.86)
[2021-08-05 04:11] LABS: Albumin 3.6 g/dL (3.4-5.0); Bilirubin Total 0.4 mg/dL (0.2-1.0); Magnesium 1.7 mg/dL (1.8-2.4); Phosphorus 3.2 mg/dL (2.5-4.9); Potassium 3.2 mmol/L (3.5-5.1); Protein, Total 6.9 g/dL (6.4-8.2)
[2021-08-05] MEDS ORDERED: NA CHLORIDE 0.9% 1,000 ML IV SCH (06:00)
[2021-08-05] MEDS ORDERED: POTASSIUM CL SA 10 MEQ TAB PO SCH (06:10)
[2021-08-05] MEDS ORDERED: LEVOTHYROXINE SOD 0.112 MG TAB PO SCH (06:30)
[2021-08-05] MEDS ORDERED: LEVOTHYROXINE SOD 0.025 MG TAB PO SCH (06:30)
--- NOTE | 2021-08-05 06:31 | P.PN ---
Date of Service: 08/05/21
[2021-08-05] MEDS: INSULIN -REGULAR HUMAN 50 UNIT/0.5 ML ML SQ SCH (07:30)
[2021-08-05] MEDS: RISPERIDONE 1 MG TABLET PO SCH (07:44)
[2021-08-05] MEDS: ENOXAPARIN 40 MG/0.4 ML SQ SCH (07:44)
[2021-08-05] MEDS: METOCLOPRAMIDE 10 MG/2mL INJ IV PRN (07:45)
[2021-08-05] MEDS: NICOTINE 14 MG/PAT TD SCH (07:45)
[2021-08-05] MEDS: clonazePAM 1 MG TAB PO PRN (07:47)
[2021-08-05 07:49] VITALS: BP 171/83
[2021-08-05 07:49] LABS: Potassium 3.9 mmol/L (3.5-5.1)
[2021-08-05] MEDS ORDERED: OXCARBAZEPINE 600 MG PO SCH ×2 (09:00→17:30)
[2021-08-05] MEDS ORDERED: HOME MED 1 EA UNK (Levothyroxine Sodium [Synthroid] 137 MCG Tablet) PO SCH (09:00)
[2021-08-05] MEDS ORDERED: AMLODIPINE 5 MG TAB PO SCH (09:00)
[2021-08-05] MEDS ORDERED: MAGNESIUM CHLORIDE 64 MG TAB PO SCH (09:00)
[2021-08-05 09:15] VITALS: TEMP 98.3; O2SAT 95
[2021-08-05] MEDS ORDERED: ATORVASTATIN 20 MG TAB PO SCH (21:00)
--- NOTE | 2021-08-06 12:22 | EKG ---
Test Date: 2021-08-04 Test Time: 05:49:38 Chopper Operator: BARB MEASUREMENT RESULTS: Intervals: Rate: 96 WA: 186 QRSD: 86 QT: 362 QTc: 457 [place]: P: 42 WA: 186 QRS: 89 T: 42 INTERPRETIVE STATEMENTS: Normal sinus rhythm Possible Left atrial enlargement Borderline ECG Compared to ECG 05/30/2021 14:57:16 T-wave abnormality no longer present Possible ischemia no longer present Electronically Signed On 08-06-21 12:17:12 CDT by Daniel Cespedes
--- NOTE | 2021-08-06 17:10 | P.DS ---
Admission Date: 08/04/21 Discharge Date: 08/05/21 Disposition: AMA-LEFT AGAINST MEDICAL ADVIC Reason for Admission: hyponatremia, intractable vomiting Consultations: Nephrology - Dr. Daniels Brief History of Present Illness: 60yo F, PMH: HTN, NIDDM2, hypothyroidism (s/p thyroidectomy), hyponatremia Presents to ED with headache and nausea/vomiting. Patient has presented to ED ~5 times in last 2 weeks for similar issues. She reports throwing up what she eats/drinks. She is unable to quantify how often/much in a day. Nothing in particular aggravates her nausea/vomiting, seems to occur randomly. She has been given antiemetics and pain medication in prior ER visits, imaging without any acute findings. She reports anxiety and she takes klonopin that helps with anxiety and headaches. Denies recent medication change, no fever/chills, no UTI symptoms, no change in bowel habits, no numbness/tingling. Review of EMR reveals prior concern for beer potomania. Patient denies any alcohol drink in several weeks. Smokes tobacco. Did not want to answer any further questions due to headache. In the ED, she was found to have severe hyponatremia. Hospital Course: Problem List Hyponatremia intractable nausea/vomiting HTN Hypothyroidism NIDDM2 anxiety Patient was rehydrated with IV fluids. Sodium began to correct quicker than expected. IV fluids were discontinued and patient was given a dose of DDAVP. Patient had gradual improvement of sodium but remained low Her mentation improved. Patient stated she felt better and didn't want to stay any longer. Despite my explanation of the risks of leaving this soon, with recent sodium increase and DDAVP, patient still wanted to go home against medical advice. She expressed understanding of the situation and risks. Vital Signs/Physical Exam: Temp Pulse Resp BP Pulse Ox 98.3 F 89 18 171/83 H 95 08/05/21 08:00 08/05/21 08:00 08/05/21 08:00 08/05/21 08:00 08/05/21 08:00 Physical Exam General: Oriented x3, NAD HEENT: EOMI, Sclerae nonicteric Respiratory: Clear to auscultation bilaterally, Normal air movement Cardiovascular: No edema, Regular rate/rhythm Gastrointestinal: Soft and benign, Non-distended, No tenderness Neurological: Normal strength at 5/5 x4 extr, Sensation intact Laboratory Data at Discharge: WBC 8.1 K/uL (4.3-10.9) D 08/05/21 03:09 Hgb 12.2 g/dL (12.0-15.0) 08/05/21 03:09 Hct 36.1 % (36.0-45.0) 08/05/21 03:09 Plt Count 269 K/uL (152-406) D 08/05/21 03:09 Sodium Cancelled 08/05/21 22:00 Potassium 3.9 mmol/L (3.5-5.1) 08/05/21 07:29 BUN 11 mg/dL (7-18) 08/05/21 07:29 Creatinine 0.62 mg/dL (0.55-1.3) 08/05/21 07:29 Glucose 160 mg/dL (74-106) H 08/05/21 07:29 Uric Acid 2.2 mg/dL (2.6-6.0) L 08/04/21 05:45 Phosphorus 3.2 mg/dL (2.5-4.9) 08/05/21 03:09 Magnesium 1.7 mg/dL (1.8-2.4) L 08/05/21 03:09 Total Bilirubin 0.4 mg/dL (0.2-1.0) 08/05/21 03:09 AST 16 U/L (15-37) 08/05/21 03:09 ALT 27 U/L (12-78) 08/05/21 03:09 Alkaline Phosphatase 96 U/L (45-117) 08/05/21 03:09 Triglycerides 150 mg/dL (<150) 08/04/21 05:45 Cholesterol 312 mg/dL (<200) H 08/04/21 05:45 HDL Cholesterol 77 mg/dL (40-60) H 08/04/21 05:45 Cholesterol/HDL Ratio 4.05 08/04/21 05:45 Lipase 35 U/L (73-393) L 08/04/21 05:45 Home Medications: Benztropine Mesylate [Cogentin] 0.5 mg PO BEDTIME 03/10/21 Doxepin HCl [Sinequan] 50 mg PO BEDTIME 03/10/21 Levothyroxine Sodium [Synthroid] 137 mcg PO DAILY 03/10/21 Linaclotide [Linzess] 72 mcg PO DAILYPRN PRN 03/10/21 Losartan/Hydrochlorothiazide [Losartan-Hctz 100-25 mg Tab] 1 each PO DAILY 03/10/21 Metformin HCl [Glucophage] 500 mg PO BIDWM 03/10/21 Metoclopramide HCl [Reglan] 10 mg PO QID 03/10/21 OXcarbazepine [Trileptal] 2 tab PO DAILY AFTER SUPPER 03/10/21 OXcarbazepine [Trileptal] 600 mg PO DAILY 03/10/21 Omeprazole [Prilosec] 40 mg PO DAILY 03/10/21 Propranolol [Inderal] 10 mg PO BIDP PRN 03/10/21 Risperidone [Risperdal] 2 mg PO BID 03/10/21 Zolpidem Tartrate [Ambien] 10 mg PO BEDTIME 03/10/21 cloNIDine HCL [Catapres] 0.3 mg PO Q8H 03/10/21 clonazePAM [Klonopin] 1 mg PO TIDP PRN 03/10/21 ondansetron HCL [Zofran] 4 mg PO Q8HP PRN 03/10/21 Followup: NONE,NONE [Primary Care Provider] - Time spent managing pt's care (in minutes): 40
== END 2021-08-05 09:55 | disposition left against medical advice (07) | DRG 641 ==
LOC: ER 05:15 → ERHOLD 06:57 → 2ND 14:28
PROVIDERS: ADMIT Hospitalist; ATTEND Hospitalist
DX: E87.1 Hypo-osmolality and hyponatremia (principal); R11.2 Nausea with vomiting, unspecified; I10 Essential (primary) hypertension; E03.9 Hypothyroidism, unspecified; F41.9 Anxiety disorder, unspecified; E11.9 Type 2 diabetes mellitus without complications; F17.210 Nicotine dependence, cigarettes, uncomplicated; Z53.29 Procedure and treatment not carried out because of patient's decision for other reasons; E83.42 Hypomagnesemia; Z83.3 Family history of diabetes mellitus; Z80.9 Family history of malignant neoplasm, unspecified; Z82.49 Family history of ischemic heart disease and other diseases of the circulatory system; Z20.822 Contact with and (suspected) exposure to COVID-19
CPT/HCPCS: 36415; 70450; 71045; 80048; 80053; 80061; 81003; 81015; 82570; 82947; 83690; 83735; 83880; 83930; 83935; 84100; 84132; 84156; 84300; 84439; 84443; 84550; 85025; 93005; 94760; 96374; 96375; 97161; 99284; J1200; J1650; J2405; J2550; J2597; J2765; J3475; J7030; U0003

== ENCOUNTER 2021-08-05 19:30 | Observation (INO) | payer OTHER ==
--- OUTSIDE RECORDS SUMMARY | 2021-08-05 19:34 | XMS REPORT | Continuity of Care Document ---
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 Allergies, Adverse Reactions, Alerts Allergy Allergy Status Severity Reaction(s) Onset Inactive Treating Comm ents Source Name Type Date Date Clinician NITRO DRUG Active Other-Cmnt Univer s TRANSDER 07-27 ity of MAL 00:00: [address] [place] ACETAMIN DRUG Active Other-Cmnt 0 Univ ers OPHEN INGREDI - ity of 00:00: [address] Social History Social Habit Start Date Stop Date Quantity Comments Source Sex Assigned At [facility] Alcohol intake 2016-05-01 2016-05-01 Current [facility] es 00:00:00 00:00:00 non-drinker of Medical Ce nter alcohol (finding) Smoking Status Start Date Stop Date Source Current every day smoker 2016-05-01 00:00:00 [facility] Medications Ordered Filled Start Stop Current Ordering Indication Dosage Frequency Signature Comments Components Source Medication Medication Date Date Medication? Clinician (SIG) Name Name OXcarbazepi Yes 600mg [id number] Take [address] ne 2-23 [id number] mg by [facility] (TRILEPTAL) 10:23: 3D mouth [...] Type Clinicians Facility Department ID 2021-06-01 Outpatient [facility] [id number] [place] 01:36:29 [id number] [facility] 2020-08-03 2020-08-03 Outpatient MATT VÁSQUEZ [facility] [id number] Univers 10:00:00 10:00:[id number] [facility] 2020-08-03 2020-08-03 Outpatient MATT VÁSQUEZ [facility] [id number] [facility] 10:00:00 10:00:[address] [facility] 2020-07-25 2020-07-25 Orders Doctor ABE [id number] 00:00:00 00:00:00 Only Unassigned, BK [id number] [place] [facility] [id number] 2019-09-26 2019-09-26 [facility] [id number] Univers 16:00:00 16:00:[address] [facility] 2019-09-26 2019-09-26 Outpatient R RAGHU, [facility] [id number] Univers 16:00:00 16:00:00 WALLY yeager [facility] 2018-10-21 2018-10-21 Telephone Nazanin, [facility] [id number] 00:00:00 00:00:00 Natacha Nguyen [id number] Ade [id number] Professio [id number] nal 204 Building Results Test Description Test Time Test Comments Results Result Comments Source TSH, THIRD GENERATION 2021-06-27 05:15:49 Test Item Value Reference Range Interpretation Comme nts TSH, THIRD GENERATION (test code = 2821) 2.080 UIU/ML 0.400-4.100 HEMOGLOBIN [id number] 03:46:00 Test Item Value Reference Range Interpretation Comments HEMOGLOBIN A1c (test 6.6 % 4.2-5.6 H SAMOAN DIABETES code = 48594) ASSOCIATION IDELINES FOR HGB A1C: PREDIABETES/INC REASED [...] UNLESS OTHER PEREZ INDICATED, ALL TESTING PERFORMED [facility] NICIL PATHOLOGY LABOR [facility] [address] [place] [address] PULP OPERATOR: DIANA RUSS M.D. CLIA NUMBER [id number] CAP ACCREDITATION N O. [id number] LIPID [id number] 02:59:52 Test Item Value Reference Range Interpretation Comments CHOLESTEROL (test 292 MG/DL <200 H code = 2210) TRIGLYCERIDES (test 184 MG/DL <150 H code = 2232) HDL CHOLESTEROL (test 51 MG/DL >39 code = 2220) CALC LDL CHOL (test 205 MG/DL <100 H NOTE: C ALCULATED LDL code = 2237) IS BASED ON MELBA-OVLERA METHOD WHICHINCLUDES ADJUSTABLE TRIGLYCERIDE:VL DL CHOLESTEROL RAT IO.THIS FACTOR VARIES B Y MEASURED TRIGLY CERIDE AND NON-HDLCHOL ESTEROL CONCENTRATIONS WITH INCREASED CALCU LATED LDL SEENIN HIGH ER TRIGLYCERIDE OR LOWER NON-HDL SPECIME NS. FOR MOREINFORMATION , SEE CLIENT ANNOUNCE MENT AT [email or web address] RISK RATIO LDL/HDL 4.02 RATIO <3.22 H (test code = 2238)
[2021-08-05] MEDS ORDERED: ONDANSETRON 4 MG/2 ML VIAL ONE (21:22)
[2021-08-05] MEDS ORDERED: NA CHLORIDE 0.9% 1,000 ML ONE (21:22)
[2021-08-05] MEDS ORDERED: MORPHINE 4 MG/ML SYR ONE (21:22)
--- NOTE | 2021-08-05 22:02 | RAD REPORT ---
EXAM DESCRIPTION: US - Abdomen Exam Limited - 08/05/2021 9:55 pm CLINICAL HISTORY: RUQ Pain COMPARISON: Abdomen Pelvis W Contrast dated 07/27/2021 FINDINGS: The gallbladder demonstrates no gallstones. No pericholecystic fluid or gallbladder wall t hickening. The common bile duct is normal measuring 4 mm. The liver demonstrates no findings of intrahepatic biliary dilatation. IMPRESSION: Unremarkable examination.
[2021-08-05 22:04] LABS: Absolute Lymphocytes (CBC) 1.4 K/uL (0.7-4.9); Hematocrit 39.9 % (36.0-45.0); Lymphocytes % 13.5 % (15.3-44.8); MPV 6.9 fL (7.6-11.3); RBC Red Blood Cell Count 4.41 M/uL (3.86-4.86)
[2021-08-05 22:21] LABS: Bilirubin Total 0.4 mg/dL (0.2-1.0); Protein, Total 8.4 g/dL (6.4-8.2)
[2021-08-05 22:31] LABS: Potassium 4.1 mmol/L (3.5-5.1)
--- NOTE | 2021-08-05 23:22 | ER ---
Nurse's Notes [facility] Name: Jaimie Amanda Age: 60 yrs Sex: Female : 1960 Arrival Date: 08/05/2021 Time: 19:34 Bed 13 Private MD: Diagnosis: Upper abdominal pain, unspecified;Nausea with vomiting, unspecified;Hypo-osmolality and hyponatremia Presentation: 08/05 19:56 Chief complaint: Patient states: I was here earlier for the same thing. I am still jb4 having nausea and right lower quadrant pain still. They wanted to keep me here in the hospital but I left because I didn't want to stay. Coronavirus screen: At this time, the client does not indicate any symptoms associated with coronavirus-19. Ebola Screen: No symptoms or risks identified at this time. Initial Sepsis Screen: Does the patient meet any 2 criteria? No. Patient's initial sepsis screen is negative. Does the patient have a suspected source of infection? No. Patient's initial sepsis screen is negative. Risk Assessment: Do you want to hurt yourself or someone else? Patient reports no desire to harm self or others. Onset of symptoms was August 05, 2021. Transition of care: patient was not received from another setting of care. 19:56 Method Of Arrival: Ambulatory jb4 19:56 Acuity: ZHEN 3 jb4 Triage Assessment: 21:35 General: Appears in no apparent distress. lora 21:36 General: Behavior is calm, cooperative. lora 21:36 Pain: Complains of pain in abdomen. lora 21:36 GI: Reports lower abdominal pain, upper abdominal pain. lora Historical: - Allergies: 19:57 Nitroglycerin; jb4 - PMHx: 19:57 Anxiety; depressive disorder; diabetes mellitus; Hypertensive disorder; Hypothyroidism; jb4 - PSHx: 19:57 Thyroidectomy; jb4 - Immunization history:: Adult Immunizations up to date. - Social history:: Smoking status: Patient reports the use of cigarette tobacco products, smokes one-half pack cigarettes per day, Patient/guardian denies using alcohol, street drugs. Screenin:35 Abuse screen: Denies threats or abuse. Denies injuries from another. Nutritional lora screening: No deficits noted. Tuberculosis screening: No symptoms or risk factors identified. Fall Risk None identified. Assessment: 20:59 Reassessment: Patient appears in no apparent distress at this time. No changes from lora previously documented assessment. I recv'd the pt from Triage \\T\\ 2035. The pt was here yesterday, but "left AMA, david I didn't want to wait". She appears in NAD. 21:36 GI: Abdomen is obese. lora 23:13 Reassessment: The pt is saying that the pain has returned. notified. The house sup lora is attempting to get another SL to the pt's lt AC, as the rt AC site, became unusable after the pt returned from CT. 23:29 Reassessment: She was unable to start another line and I've asked my charge nurse to lora start one. 23:42 Reassessment: Another nurse is trying to get the IV placed. lora 08/06 02:25 Reassessment: I tried to call report to 1440, but the nurse "just went on break" and lora there isn't anyone else to take report. We are doing the EKG at this time. The nurse will call me back, when they return from break. 02:50 Reassessment: Apparently, my charge nurse has already called report. The pt is being lora taken up via w/c, by the nurse. Vital Signs: 08/05 19:56 BP 176 / 106; Pulse 97; Resp 16; Temp 97.5(TE); Pulse Ox 97% ; Weight 74.84 kg (R); jb4 Height 5 ft. 7 in. (170.18 cm); Pain 8/10; 21:34 BP 177 / 93; Pulse 75; Resp 18; Temp 98.3; Pulse Ox 96% on R/A; lora 22:01 BP 192 / 90; Pulse 71; Resp 18; Pulse Ox 96% on R/A; lora 22:38 BP 186 / 85; Pulse 69; Resp 18; Pulse Ox 96% on R/A; lora 23:11 BP 194 / 92; Pulse 71; Resp 16; Pulse Ox 97% on R/A; lora 08/06 00:03 BP 202 / 102; Pulse 69; Resp 18; Pulse Ox 97% on R/A; lora 02:00 BP 171 / 86; Pulse 79; Resp 18; Temp 98.5(O); Pulse Ox 93% on R/A; lp1 02:26 BP 160 / 87; Pulse 72; Resp 16; Temp 98.5; Pulse Ox 95% on R/A; lora 08/05 19:56 Body Mass Index 25.84 (74.84 kg, 170.18 cm) jb4 ED Course: 08/05 19:34 Patient arrived in ED. ja2 19:57 Triage completed. jb4 19:57 Arm band placed on right wrist. jb4 20:29 Gustavo Reed MD is Attending Physician. mh7 20:46 Stephanie Cuevas, RN is Primary Nurse. lora 21:26 CBC with Diff Sent. lora 21:27 CMP Sent. lora 21:27 Lipase Sent. lora 21:36 Bed in low position. Call light in reach. Side rails up X 1. Pulse ox on. NIBP on. lora 21:36 No provider procedures requiring assistance completed. lora 21:53 Abdomen Limited US In Process Unspecified. EDMS 22:33 Notified ED physician of a critical lab result(s). Sodium 119. lp1 22:43 CT Abd/Pelvis - Without Contrast In Process Unspecified. EDMS 23:20 Olegario Bettencourt is Hospitalizing Provider. 7 23:30 Patient admitted, IV remains in place. lora Administered Medications: 21:18 Not Given (not available): Pepcid (famotidine) 20 mg IVP once; dilute with 10 mL 0.9% lora NaCl; give over 2 minutes 21:26 Drug: Zofran (Ondansetron) 4 mg Route: IVP; Site: right antecubital; lora 23:12 Follow up: Response: No adverse reaction lora 21:26 Drug: morphine 4 mg Route: IVP; Infused Over: 4 mins; Site: right antecubital; lora 23:12 Follow up: Response: No adverse reaction lora 21:27 Drug: NS 0.9% 1000 ml Route: IV; Rate: 1 bolus; Site: right antecubital; lora 08/06 02:27 Follow up: Response: No adverse reaction; IV Status: Completed infusion lora 00:02 Drug: hydrALAZINE 10 mg Route: IVP; Site: left forearm; lora 02:14 Follow up: Response: Blood pressure is lowered lp1 02:33 Follow up: Response: No adverse reaction lora Medication: 08/05 21:37 VIS not applicable for this client. lora Outcome: 21:36 Condition: stable lora 23:22 Decision to Hospitalize by Provider. Katelin 23:30 Admitted to lora 08/06 01:51 Admitted to Tele room 401, Report called to CATY Porter lp1 02:52 Patient left the ED. lora Signatures: Dispatcher [employer] EDMS Joanie Young RN RN lp1 Bharathi Campos RN RN jb4 Gustavo Reed MD MD 7 Sandi Carrasco Brenda, RN RN lora
--- NOTE | 2021-08-05 23:22 | EDPHYS ---
Physician Documentation [facility] Name: Jaimie Amanda Age: 60 yrs Sex: Female : 1960 Arrival Date: 08/05/2021 Time: 19:34 Bed 13 Private MD: ED Physician Gustavo Reed HPI: 08/05 20:47 This 60 yrs old Female presents to ER via Ambulatory with complaints of Vomiting, mh7 Abdominal Pain. 20:47 The patient presents to the emergency department with nausea, that is moderate, mh7 vomiting, that is intermittent, described as clear fluid, abdominal pain, of the right upper quadrant, described as intermittent, vague,\E\ waxing and waning. Onset: The symptoms/episode began/occurred yesterday. Possible causes: unknown. The symptoms are aggravated by nothing. The symptoms are alleviated by nothing. Associated signs and symptoms: Pertinent negatives: anorexia, belching, constipation, diarrhea, dysuria, fever, flatulence, GI bleeding, hematuria, vaginal discharge. Severity of symptoms: At their worst the symptoms were moderate today, in the emergency department the symptoms are unchanged. The patient has been recently seen at the [facility] Emergency Department, yesterday. Historical: - Allergies: 19:57 Nitroglycerin; jb4 - PMHx: 19:57 Anxiety; depressive disorder; diabetes mellitus; Hypertensive disorder; Hypothyroidism; jb4 - PSHx: 19:57 Thyroidectomy; jb4 - Immunization history:: Adult Immunizations up to date. - Social history:: Smoking status: Patient reports the use of cigarette tobacco products, smokes one-half pack cigarettes per day, Patient/guardian denies using alcohol, street drugs. ROS: 20:47 Constitutional: Negative for fever, chills, and weight loss, Eyes: Negative for injury, mh7 pain, redness, and discharge, ENT: Negative for injury, pain, and discharge, Neck: Negative for injury, pain, and swelling, Cardiovascular: Negative for chest pain, palpitations, and edema, Respiratory: Negative for shortness of breath, cough, wheezing, and pleuritic chest pain, Back: Negative for injury and pain, : Negative for injury, bleeding, discharge, and swelling, MS/Extremity: Negative for injury and deformity, Skin: Negative for injury, rash, and discoloration, Neuro: Negative for headache, weakness, numbness, tingling, and seizure, Psych: Negative for depression, anxiety, suicide ideation, homicidal ideation, and hallucinations, Allergy/Immunology: Negative for hives, rash, and allergies, Endocrine: Negative for neck swelling, polydipsia, polyuria, polyphagia, and marked weight changes, Hematologic/Lymphatic: Negative for swollen nodes, abnormal bleeding, and unusual bruising. Exam: 20:47 Head/Face: Normocephalic, atraumatic. Eyes: Pupils equal round and reactive to light, mh7 extra-ocular motions intact. Lids and lashes normal. Conjunctiva and sclera are non-icteric and not injected. Cornea within normal limits. Periorbital areas with no swelling, redness, or edema. Neck: Trachea midline, no thyromegaly or masses palpated, and no cervical lymphadenopathy. Supple, full range of motion without nuchal rigidity, or vertebral point tenderness. No Meningismus. Chest/axilla: Normal chest wall appearance and motion. Nontender with no deformity. No lesions are appreciated. Cardiovascular: Regular rate and rhythm with a normal S1 and S2. No gallops, murmurs, or rubs. Normal PMI, no JVD. No pulse deficits. Respiratory: Lungs have equal breath sounds bilaterally, clear to auscultation and percussion. No rales, rhonchi or wheezes noted. No increased work of breathing, no retractions or nasal flaring. 20:47 Back: No spinal tenderness. No costovertebral tenderness. Full range of motion. Skin: Warm, dry with normal turgor. Normal color with no rashes, no lesions, and no evidence of cellulitis. MS/ Extremity: Pulses equal, no cyanosis. Neurovascular intact. Full, normal range of motion. Neuro: Awake and alert, GCS 15, oriented to person, place, time, and situation. Cranial nerves II-XII grossly intact. Motor strength 5/5 in all extremities. Sensory grossly intact. Cerebellar exam normal. Normal gait. Psych: Awake, alert, with orientation to person, place and time. Behavior, mood, and affect are within normal limits. 20:47 Constitutional: The patient appears in no acute distress, alert, awake, uncomfortable. 20:47 Abdomen/GI: Inspection: abdomen appears normal, Bowel sounds: normal, in all quadrants, Palpation: moderate abdominal tenderness, in the right upper quadrant, mass, is not appreciated, rebound tenderness, is not appreciated, voluntary guarding, is not appreciated, involuntary guarding, is not appreciated, no appreciated organomegaly, Rectal exam: the exam is deferred, because of patient request, Indicators: McBurney's point is not tender, Marrero's sign is negative, Rovsing's sign is negative, Obturator sign is negative, Psoas sign is negative, Liver: no appreciated palpable abnormalities, Hernia: not appreciated. Vital Signs: 19:56 BP 176 / 106; Pulse 97; Resp 16; Temp 97.5(TE); Pulse Ox 97% ; Weight 74.84 kg (R); jb4 Height 5 ft. 7 in. (170.18 cm); Pain 8/10; 21:34 BP 177 / 93; Pulse 75; Resp 18; Temp 98.3; Pulse Ox 96% on R/A; lora 22:01 BP 192 / 90; Pulse 71; Resp 18; Pulse Ox 96% on R/A; lora 22:38 BP 186 / 85; Pulse 69; Resp 18; Pulse Ox 96% on R/A; lora 23:11 BP 194 / 92; Pulse 71; Resp 16; Pulse Ox 97% on R/A; lora 08/06 00:03 BP 202 / 102; Pulse 69; Resp 18; Pulse Ox 97% on R/A; lora 02:00 BP 171 / 86; Pulse 79; Resp 18; Temp 98.5(O); Pulse Ox 93% on R/A; lp1 02:26 BP 160 / 87; Pulse 72; Resp 16; Temp 98.5; Pulse Ox 95% on R/A; lora 08/05 19:56 Body Mass Index 25.84 (74.84 kg, 170.18 cm) jb4 MDM: 08/05 23:19 Differential diagnosis: Nonspecific abd pain, gastritis, cholecystitis, pancreatitis, mh7 diverticulitis, viral gastroenteritis, gastroenteritis. Data reviewed: vital signs, nurses notes, old medical records, lab test result(s), CBC, electrolytes, urinalysis, EKG, radiologic studies, CT scan, ultrasound. Data interpreted: Pulse oximetry: on room air is 97 %. Interpretation: normal. Counseling: I had a detailed discussion with the patient and/or guardian regarding: the historical points, exam findings, and any diagnostic results supporting the discharge/admit diagnosis, the presence of at least one elevated blood pressure reading (>120/80) during this emergency department visit, lab results, radiology results, the need for further work-up and treatment in the hospital. Response to treatment: the patient's symptoms have mildly improved after treatment. 23:22 Patient medically screened. [facility] 08/05 20:45 Order name: CBC with Diff; Complete Time: 22:16 [facility] 08/05 20:45 Order name: CMP; Complete Time: 22:35 [facility] 08/05 20:45 Order name: Lipase; Complete Time: 22:35 [facility] 08/05 20:45 Order name: Abdomen Limited US; Complete Time: 22:16 [facility] 08/05 22:16 Order name: CT Abd/Pelvis - Without Contrast [facility] 08/05 20:45 Order name: IV Saline Lock; Complete Time: 21:26 [facility] 08/05 20:45 Order name: Labs collected and sent; Complete Time: 21:26 [facility] 08/05 20:45 Order name: Urine Dipstick-Ancillary (obtain specimen) [facility] 08/05 20:47 Order name: EKG; Complete Time: 20:47 [facility] 08/05 20:47 Order name: EKG - Nurse/Tech; Complete Time: 02:34 [facility] Administered Medications: 21:18 Not Given (not available): Pepcid (famotidine) 20 mg IVP once; dilute with 10 mL 0.9% lora NaCl; give over 2 minutes 21:26 Drug: Zofran (Ondansetron) 4 mg Route: IVP; Site: right antecubital; lora 23:12 Follow up: Response: No adverse reaction lora 21: Drug: morphine 4 mg Route: IVP; Infused Over: 4 mins; Site: right antecubital; lora 23:12 Follow up: Response: No adverse reaction lora : Drug: NS 0.9% 1000 ml Route: IV; Rate: 1 bolus; Site: right antecubital; lora 08/06 02:27 Follow up: Response: No adverse reaction; IV Status: Completed infusion lora 00:02 Drug: hydrALAZINE 10 mg Route: IVP; Site: left forearm; lora 02:14 Follow up: Response: Blood pressure is lowered lp1 02:33 Follow up: Response: No adverse reaction lora Disposition Summary: 08/05/21 23:22 Hospitalization Ordered Hospitalization Status: Inpatient Admission [facility] Provider: Olegario Bettencourt [facility] Location: Telemetry/MedSurg (Inpatient) [facility] Condition: Stable [facility] Problem: new mh7 Symptoms: have improved mh7 Bed/Room Type: Standard [facility] Room Assignment: 401(08/06/21 01:37) cg Diagnosis - Upper abdominal pain, unspecified mh7 - Nausea with vomiting, unspecified mh7 - Hypo-osmolality and hyponatremia [facility] Forms: - Medication Reconciliation Form 7 - SBAR form 7 Signatures: Dispatcher [employer] EDShawnee Garcia RN RN cg Bharathi Campos RN RN jb4 Gustavo Reed MD MD 7 Stephanie Cuevas RN RN Dior Kimball PA PA sb3 Joanie Young RN lp1 Corrections: (The following items were deleted from the chart) 01:37 08/05 23:22 mh7 cg
[2021-08-06] MEDS ORDERED: HYDRALAZINE HCL 20 MG/ML VIAL ONE (00:06)
--- NOTE | 2021-08-06 00:18 | P.HP ---
Certification for Inpatient Patient admitted to: Inpatient With expected LOS: <2 Midnights Patient will require the following post-hospital care: None Practitioner: I am a practitioner with admitting privileges, knowledge of patient current condition, hospital course, and medical plan of care. Services: Services provided to patient in accordance with Admission requirements found in Title 42 Section 412.3 of the Code of Federal Regulations Patient History Date of Service: 08/06/21 Reason for admission: Hyponatremia History of Present Illness: Patient is a 60 y/o female with PMH of HTN, NIDDM2, hypothyroidism (s/p thyroidectomy), and hyponatremia, who presented to ED with complaint of headache and nausea/vomiting. Patient left AMA yesterday after being admitted for hyponatremia/intractable vomiting and has presented to ED ~5 times in last 2 weeks for similar issues. Review of EMR reveals prior concern for beer potomania. Patient denies any alcohol drink in several weeks. Smokes tobacco. In the ED, sodium is 119 and patient is hypertensive (200s systolic). Imaging negative. Upon my assessment, patient appears somewhat altered and is complai shauna of pain all over and requesting morphine. UDS and ETOH pending. Will admit patient for further evaluation and treatment. Allergies nitroglycerin Adverse Reaction (Verified 07/05/18 06:27) severe hypotension Home medications list reviewed: Yes Home Medications: Benztropine Mesylate [Cogentin] 0.5 mg PO BEDTIME 03/10/21 Doxepin HCl [Sinequan] 50 mg PO BEDTIME 03/10/21 Levothyroxine Sodium [Synthroid] 137 mcg PO DAILY 03/10/21 Linaclotide [Linzess] 72 mcg PO DAILYPRN PRN 03/10/21 Losartan/Hydrochlorothiazide [Losartan-Hctz 100-25 mg Tab] 1 each PO DAILY 03/10/21 Metformin HCl [Glucophage] 500 mg PO BIDWM 03/10/21 Metoclopramide HCl [Reglan] 10 mg PO QID 03/10/21 OXcarbazepine [Trileptal] 2 tab PO DAILY AFTER SUPPER 03/10/21 OXcarbazepine [Trileptal] 600 mg PO DAILY 03/10/21 Omeprazole [Prilosec] 40 mg PO DAILY 03/10/21 Propranolol [Inderal] 10 mg PO BIDP PRN 03/10/21 Risperidone [Risperdal] 2 mg PO BID 03/10/21 Zolpidem Tartrate [Ambien] 10 mg PO BEDTIME 03/10/21 cloNIDine HCL [Catapres] 0.3 mg PO Q8HP PRN 03/10/21 clonazePAM [Klonopin] 1 mg PO TIDP PRN 03/10/21 ondansetron HCL [Zofran] 4 mg PO Q8HP PRN 03/10/21 - Past Medical/Surgical History Diabetic: No -: Hepatitis -: Anxiety -: HTN -: Hypothyroidism -: Alcoholic induced seizures -: Thyroidectomy -: Plastic surgery breast -: hernia repair Psychosocial/ Personal History: Patient lives at home with her mother - Family History Mother -: Hypertension, Diabetes, Cancer Notes: Thyroid, Knee replacement Father -: Heart disease, Hypertension, Diabetes - Social History Smoking Status: Current every day smoker Alcohol use: Yes CD- Drugs: No Caffeine use: Yes Place of Residence: Home Review of Systems Gastrointestinal: Nausea, Vomiting, Abdominal Pain Physical Examination - Physical Exam General: Alert, In no apparent distress HEENT: Atraumatic, EOMI, Sclerae nonicteric Neck: Supple, 2+ carotid pulse no bruit, No LAD Respiratory: Clear to auscultation bilaterally, Normal air movement Cardiovascular: Regular rate/rhythm, Normal S1 S2 Gastrointestinal: Normal bowel sounds, No tenderness Musculoskeletal: No tenderness Integumentary: No rashes Neurological: Normal gait, Normal speech, Normal strength at 5/5 x4 extr, Normal tone, Normal affect - Studies Laboratory Data (last 24 hrs) 08/05/21 21:00: Sodium 119 L*, Potassium 4.1, BUN 10, Creatinine 0.88, Glucose 155 H, Total Bilirubin 0.4, AST 30, ALT 37, Alkaline Phosphatase 118 H, Lipase 42 L 08/05/21 21:00: WBC 10.2 D, Hgb 13.8, Hct 39.9, Plt Count 322 Assessment and Plan - Problems (Diagnosis) (1) Acute hyponatremia Current Visit: Yes Status: Acute (2) Hypovolemia due to dehydration Current Visit: Yes Status: Acute (3) Hypertensive urgency Current Visit: Yes Status: Acute (4) Hypothyroidism Current Visit: No Status: Chronic Qualifiers: Hypothyroidism type: unspecified Qualified Code(s): E03.9 - Hypothyroidism, unspecified (5) Diabetes Current Visit: No Status: Chronic Qualifiers: Diabetes mellitus type: type 2 Diabetes mellitus exterminator termite insulin use: without exterminator termite use Diabetes mellitus complication status: with kidney complications Diabetes mellitus complication detail: with chronic kidney disease Chronic kidney disease stage: stage 2 (mild) Qualified Code(s): E11.22 - Type 2 diabetes mellitus with diabetic chronic kidney disease; N18.2 - Chronic kidney disease, stage 2 (mild) - Plan -NS @ 150 cc/hr for hypovolemic hyponatremia as patient rapidly corrected during previous visit. BMP q6h. -renal panel, serum osmolality, urine sodium, urine creatinine, urine potassium, uric acid ordered -zofran PRN nausea, morphine PRN pain -ACHS accu checks with mild sliding scale insulin and diabetic diet -encourage PO intake as tolerated -nephrology consulted -hydralazine PRN BP spikes -obtain and continue home medications -Lovenox for VTE ppx Discharge Plan: Home Plan to discharge in: 48 Hours - Advance Directives Does patient have a Living Will: No Does patient have a Durable POA for Healthcare: No - Code Status/Comfort Care Code Status Assessed: Yes (Full) Critical Care: No Time Spent Managing Pts Care (In Minutes): 70
[2021-08-06] MEDS ORDERED: MORPHINE 2 MG/ML SYR IV PRN (02:57)
[2021-08-06] MEDS ORDERED: HYDRALAZINE HCL 20 MG/ML VIAL IV PRN (02:57)
[2021-08-06] MEDS ORDERED: ONDANSETRON 4 MG/2 ML VIAL IV PRN (02:57)
[2021-08-06] MEDS: NA CHLORIDE 0.9% 1,000 ML IV SCH ×4 (03:11→21:58)
[2021-08-06] MEDS: ACETAMINOPHEN 500 MG TAB PO PRN ×2 (03:26→17:39)
[2021-08-06 04:35] VITALS: BMI 25.8
--- NOTE | 2021-08-06 04:47 | P.CNS ---
Date of Consult: 08/06/21 Reason for Consult: Hyponatremia Requesting Physician: jade barrow Chief Complaint: Hyponatremia History of Present Illness: 60F w/ PMHx of anxiety disorder, Htn on Losartan/HCTZ, DM2, hypothyroidism (s/p thyroidectomy), & hyponatremia who p/w hyponatremia w/ initial serum Na 119. She left AMA yesterday from our hospital & comes back d/t LO/N/V. She has several other psyche meds listed but she is unsure which ones she's taking. Urine chem showed high ADH state. She is receiving NS IV gtt. Allergies No Known Allergies Allergy (Unverified 08/06/21 03:26) Home Medications: Benztropine Mesylate [Cogentin] 0.5 mg PO BEDTIME 03/10/21 Doxepin HCl [Sinequan] 50 mg PO BEDTIME 03/10/21 Levothyroxine Sodium [Synthroid] 137 mcg PO DAILY 03/10/21 Linaclotide [Linzess] 72 mcg PO DAILYPRN PRN 03/10/21 Losartan/Hydrochlorothiazide [Losartan-Hctz 100-25 mg Tab] 1 each PO DAILY 03/10/21 Metformin HCl [Glucophage] 500 mg PO BIDWM 03/10/21 Metoclopramide HCl [Reglan] 10 mg PO QID 03/10/21 OXcarbazepine [Trileptal] 2 tab PO DAILY AFTER SUPPER 03/10/21 OXcarbazepine [Trileptal] 600 mg PO DAILY 03/10/21 Omeprazole [Prilosec] 40 mg PO DAILY 03/10/21 Propranolol [Inderal] 10 mg PO BIDP PRN 03/10/21 Risperidone [Risperdal] 2 mg PO BID 03/10/21 Zolpidem Tartrate [Ambien] 10 mg PO BEDTIME 03/10/21 cloNIDine HCL [Catapres] 0.3 mg PO Q8H 03/10/21 clonazePAM [Klonopin] 1 mg PO TIDP PRN 03/10/21 ondansetron HCL [Zofran] 4 mg PO Q8HP PRN 03/10/21 - Past Medical/Surgical History Diabetic: No -: Hepatitis -: Anxiety -: HTN -: Hypothyroidism -: Alcoholic induced seizures -: NIDDM -: Thyroidectomy -: Plastic surgery breast -: hernia repair Psychosocial/ Personal History: Patient lives at home with her mother - Family History Mother Medical History: Hypertension, Diabetes, Cancer Notes: Thyroid, Knee replacement Father Medical History: Heart disease, Hypertension, Diabetes - Social History Smoking Status: Current every day smoker Alcohol use: Yes CD- Drugs: No Caffeine use: Yes Place of Residence: Home Review of Systems General: Unremarkable Eyes: Unremarkable ENT: Unremarkable Respiratory: Unremarkable Cardiovascular: Unremarkable Gastrointestinal: Nausea, Vomiting Genitourinary: Unremarkable Musculoskeletal: Unremarkable Integumentary: Unremarkable Neurological: Other (Headache) Lymphatics: Unremarkable Physical Examination Temp Pulse Resp BP Pulse Ox 97.2 F 77 18 178/82 H 96 08/06/21 03:04 08/06/21 03:04 08/06/21 03:04 08/06/21 03:04 08/06/21 03:04 General: In no apparent distress HEENT: Atraumatic, Normocephalic Neck: Supple, JVD not distended Respiratory: Clear to auscultation bilaterally, Other (Symmetric chest expansion) Cardiovascular: No rubs, No murmurs Gastrointestinal: Soft and benign, No rebound, No guarding Musculoskeletal: No clubbing Integumentary: No warmth Neurological: Normal speech, Normal tone Urinary: Other (No bladder distention) External genitalia: Deferred Rectal: Deferred Laboratory Data (last 24 hrs) 08/05/21 21:00: Sodium 119 L*, Potassium 4.1, BUN 10, Creatinine 0.88, Glucose 155 H, Total Bilirubin 0.4, AST 30, ALT 37, Alkaline Phosphatase 118 H, Lipase 42 L 08/05/21 21:00: WBC 10.2 D, Hgb 13.8, Hct 39.9, Plt Count 322 Conclusions/Impression: # Hyponatremia 2/2 high ADH state from HCTZ use & anxiety disorder +/- low solute intake Initial serum Na 119, increased to 128 today Urine chem c/w high ADH state BNP not sig elevated NS gtt rate dec to 50 cc/hr Monitor serum Na q6h Avoid thiazide permanently Unclear which other psyche meds she's taking that may also be contributory to her hypoNa Replete K prn to keep serum K at 4.0 or higher Avoid hypoMg Encourage po solid food intake Antiemetics prn for nausea/vomiting Check serum Na q4-6h # HypoMg Monitor/replete prn # Anxiety disorder Will need to review/revise psyche meds regimen # Htn Cont current BP med regimen # DM2 Mngt per primary team # Hypothyroidism (s/p thyroidectomy) Levothyroxine
[2021-08-06 06:03] LABS: Absolute Lymphocytes (CBC) 2.6 K/uL (0.7-4.9); Hematocrit 40.4 % (36.0-45.0); Lymphocytes % 29.7 % (15.3-44.8); MPV 6.6 fL (7.6-11.3); RBC Red Blood Cell Count 4.44 M/uL (3.86-4.86)
[2021-08-06 06:14] LABS: Magnesium 1.8 mg/dL (1.8-2.4); Phosphorus 3.5 mg/dL (2.5-4.9); Potassium 3.4 mmol/L (3.5-5.1)
[2021-08-06] MEDS: HYDROCODONE/APAP 5/325 MG TAB PO PRN ×2 (08:01→14:12)
[2021-08-06] MEDS: ENOXAPARIN 40 MG/0.4 ML SQ SCH (08:01)
[2021-08-06 09:25] VITALS: O2SAT 98
[2021-08-06 10:04] LABS: Urine Appearance Clear (Clear); Urine Bilirubin Negative (Negative); Urine Blood Negative (Negative); Urine Color Yellow (Yellow); Urine Glucose Negative (Negative); Urine Protein Negative (Negative); Urine Specific Gravity 1.015 (1.005-1.030); Urine Urobilinogen 0.2 mg/dL (0.2-1.0)
[2021-08-06 10:05] LABS: Urine Microscopic Reflex NO UMIC
[2021-08-06] MEDS ORDERED: HOME MED 1 EA UNK (Linaclotide [Linzess] 72 MCG Capsule) PO PRN (10:16)
[2021-08-06] MEDS ORDERED: ONDANSETRON 4 MG (ODT) TAB PO PRN (10:16)
[2021-08-06] MEDS ORDERED: PROPRANOLOL HCL 10 MG TAB PO PRN (10:16)
[2021-08-06] MEDS ORDERED: clonazePAM 1 MG TAB PO PRN (10:16)
[2021-08-06] MEDS ORDERED: HOME MED 1 EA UNK (Levothyroxine Sodium [Synthroid] 137 MCG Tablet) PO SCH (10:18)
[2021-08-06] MEDS ORDERED: OXcarbazepine 150 MG TAB PO SCH ×2 (10:19→17:30)
[2021-08-06] MEDS ORDERED: HOME MED 1 EA UNK (Omeprazole [Prilosec] 40 MG Capsule.Dr) PO SCH (10:19)
[2021-08-06] MEDS: METOCLOPRAMIDE 10 MG/2mL INJ IV PRN ×2 (10:52→17:39)
[2021-08-06] MEDS: CLONIDINE HCL 0.3 MG TAB PO SCH ×2 (10:52→16:34)
[2021-08-06] MEDS: LOSARTAN/HCTZ 50-12.5 PO SCH (10:55)
[2021-08-06] MEDS: LEVOTHYROXINE SOD 0.025 MG TAB PO SCH (10:56)
[2021-08-06] MEDS: PANTOPRAZOLE 40MG TABLET PO SCH (10:56)
[2021-08-06] MEDS: LEVOTHYROXINE SOD 0.112 MG TAB PO SCH (10:56)
[2021-08-06] MEDS: RISPERIDONE 1 MG TABLET PO SCH ×2 (11:18→22:00)
[2021-08-06] MEDS: SUCRALFATE 1GM/10ML UCUP PO SCH ×3 (11:21→21:59)
[2021-08-06 11:41] LABS: Potassium 3.5 mmol/L (3.5-5.1)
[2021-08-06 12:04] LABS: Barbiturates POSITIVE (NEGATIVE); Benzodiazepines NEGATIVE (NEGATIVE); Cocaine NEGATIVE (NEGATIVE); METHAMPHETAM NEGATIVE (NEGATIVE); Methadone NEGATIVE (NEGATIVE); Opiates NEGATIVE (NEGATIVE); Phencyclidine NEGATIVE (NEGATIVE); THC Cannibis NEGATIVE (NEGATIVE)
[2021-08-06] MEDS ORDERED: METOCLOPRAMIDE 5 MG TAB PO SCH (13:00)
--- NOTE | 2021-08-06 14:15 | RAD REPORT ---
EXAM DESCRIPTION: CT - Abdomen Pelvis Wo Contrast - 08/06/2021 6:35 am CLINICAL HISTORY: Nonlocalized acute abdominal pain. COMPARISON: CT abdomen and pelvis with contrast 04/25/2021 TECHNIQUE: Axial unenhanced CT imaging of the abdomen and pelvis performed. Reformatted coronal and sagittal images reviewed. A dose reduction technique was utilized with automated exposure control according to patient size. FINDINGS: Clear lung bases. Heart is normal in size. Trace pericardial fluid. Normal liver size and contour. A few small cysts are present within the left lobe. No mass or biliary dilatation. Unremarkable gallbladder. Normal spleen, pancreas, adrenal and kidneys. Normal caliber a mile and inferior vena cava. No retroperitoneal adenopathy. Small hiatal hernia. Unremarkable stomach. Opaque density within the duodenal bulb is likely ingested pill. Normal small bowel loops. Normal appendix in the right lower quadrant. Mild proximal sigmoid c olon diverticulosis without diverticulitis. No ascites or free air. Unremarkable bladder. Normal uterus. No pelvic free fluid. There is a moderate degenerative changes at the lumbosacral junction. Mild lower thoracic spondylosis . Bony pelvis appears intact. Unremarkable hips. No soft tissue abnormality. IMPRESSION: 1. No acute finding within the abdomen or pelvis to account for reported pain. 2. Small hepatic cysts. 3. Small hiatal hernia. 4. Trace pericardial fluid.. Electronically signed by: Debra Woodard DO 08/05/2021 11:00 PM CDT Due to temporary technical issues with the PACS/Fluency reporting system, reports are being signed by the in house radiologist without review as a courtesy to ensure prompt reporting. The interpreting r adiologist is fully responsible for the content of the report.
--- NOTE | 2021-08-06 17:03 | P.PN ---
Date of Service: 08/06/21 Patient is alert and oriented today. She is experiencing nausea and vomiting. She is also complaining of headache. Diagnosis: Hyponatremia-suspect secondary to SIADH. Patient denies recent alcohol intake, concurred by her mother by her bedside. History of seizures Intractable nausea and vomiting. Diabetes mellitus type 2 Plan: Nephrology seen patient and assisted with management of hyponatremia. Sodium level is improving Continue IV normal saline Supportive measures for nausea and vomiting. Sucralfate for possible gastritis. Monitor BMP to follow sodium level. Resume other home medications.
[2021-08-06] MEDS ORDERED: OXCARBAZEPINE 600 MG PO SCH (17:30)
[2021-08-06 17:49] LABS: Potassium 3.6 mmol/L (3.5-5.1)
[2021-08-06] MEDS ORDERED: DOXEPIN HCL 25 MG CAP PO SCH (21:00)
[2021-08-06] MEDS ORDERED: BENZTROPINE 1 MG TAB PO SCH (21:00)
[2021-08-06] MEDS ORDERED: ZOLPIDEM TARTRATE 10 MG TABLET PO SCH (21:00)
[2021-08-06 23:19] LABS: Potassium 3.4 mmol/L (3.5-5.1)
[2021-08-07] MEDS: CLONIDINE HCL 0.3 MG TAB PO SCH ×2 (00:37→08:52)
[2021-08-07 04:25] LABS: Potassium 3.4 mmol/L (3.5-5.1)
[2021-08-07] MEDS: LEVOTHYROXINE SOD 0.112 MG TAB PO SCH (05:45)
[2021-08-07] MEDS: LEVOTHYROXINE SOD 0.025 MG TAB PO SCH (05:45)
[2021-08-07] MEDS: SUCRALFATE 1GM/10ML UCUP PO SCH (08:52)
[2021-08-07] MEDS: LOSARTAN/HCTZ 50-12.5 PO SCH (08:53)
[2021-08-07] MEDS: ENOXAPARIN 40 MG/0.4 ML SQ SCH (08:53)
[2021-08-07] MEDS: PANTOPRAZOLE 40MG TABLET PO SCH (08:54)
[2021-08-07] MEDS: RISPERIDONE 1 MG TABLET PO SCH (08:54)
[2021-08-07] MEDS ORDERED: PANTOPRAZOLE 40MG TABLET PO SCH (09:00)
[2021-08-07] MEDS ORDERED: OXCARBAZEPINE 600 MG PO SCH (09:00)
[2021-08-07 09:06] VITALS: BP 128/76; TEMP 97.8
--- NOTE | 2021-08-07 10:09 | P.DS ---
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: without [place] use Diabetes mellitus complication status: with kidney complications Diabetes mellitus complication detail: with chronic kidney disease Chronic kidney disease stage: stage 2 (mild) Qualified Code(s): E11.22 - Type 2 diabetes mellitus with diabetic chronic kidney disease; N18.2 - Chronic kidney disease, stage 2 (mild) (6) History of bipolar disorder Status: Chronic (7) Hypothyroidism Status: Chronic Qualifiers: Hypothyroidism type: unspecified Qualified Code(s): E03.9 - Hypothyroidism, unspecified Brief History of Present Illness: Patient is a 60 y/o female with PMH of HTN, NIDDM2, hypothyroidism (s/p thyroidectomy), and hyponatremia, who presented to ED with complaint of headache and nausea/vomiting. Patient left AMA the day prior after being admitted for hyponatremia/intractable vomiting. She presented to ED ~5 times in 2 weeks for similar issues. Review of EMR reveals prior concern for beer potomania. Patient denied any alcohol drink in several weeks. In the ED, sodium was 119 and patient was hypertensive (200s systolic). Imaging negative. Patient was somewhat confused and complaining of pain all over and requesting morphine. UDS and ETOH pending. She was admitted for further management. 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 History of alcoholism History of seizures Intractable nausea and vomiting. Diabetes mellitus type 2 Patient admitted to the medical floor and treated for hyponatremia with IV normal saline. Nephrology consulted who assisted with management. Her sodium level improved gradually with treatment. Her mental status improved with improvement in the sodium level. Hyponatremia secondary to beer potomania versus SIADH from antiseizure medications. She was also experiencing nausea and vomiting and dry heaving. She is on chronic Reglan therapy and suspect alcohol- related gastritis. Patient treated with Protonix and sucralfate which helped her symptoms. She has clinically improved. Sodium level has improved and stabilized at 130. At this point patient stated she is back to baseline and requested to go home. Patient is discharged per her request. Vital Signs/Physical Exam: Temp Pulse Resp BP Pulse Ox 97.8 F 82 18 128/76 96 08/07/21 08:00 08/07/21 08:00 08/07/21 08:00 08/07/21 08:00 08/07/21 08:00 General: Alert, In no apparent distress, Oriented x3 HEENT: Mucous membr. moist/pink Neck: JVD not distended Respiratory: Clear to auscultation bilaterally Cardiovascular: No edema, Regular rate/rhythm, Normal S1 S2 Gastrointestinal: Normal bowel sounds, Soft and benign, Non-distended, No tenderness Musculoskeletal: No swelling Integumentary: No rashes, No cyanosis Neurological: Normal strength at 5/5 x4 extr Laboratory Data at Discharge: WBC 8.9 K/uL (4.3-10.9) 08/06/21 05:47 Hgb 13.8 g/dL (12.0-15.0) 08/06/21 05:47 Hct 40.4 % (36.0-45.0) 08/06/21 05:47 Plt Count 285 K/uL (152-406) 08/06/21 05:47 Sodium 130 mmol/L (136-145) L 08/07/21 03:22 Potassium 3.4 mmol/L (3.5-5.1) L 08/07/21 03:22 BUN 12 mg/dL (7-18) 08/07/21 03:22 Creatinine 0.65 mg/dL (0.55-1.3) 08/07/21 03:22 Glucose 135 mg/dL (74-106) H 08/07/21 03:22 Uric Acid 1.7 mg/dL (2.6-6.0) L 08/06/21 05:47 Phosphorus 3.5 mg/dL (2.5-4.9) 08/06/21 05:47 Magnesium 1.8 mg/dL (1.8-2.4) 08/06/21 05:47 Total Bilirubin 0.4 mg/dL (0.2-1.0) 08/05/21 21:00 AST 30 U/L (15-37) 08/05/21 21:00 ALT 37 U/L (12-78) 08/05/21 21:00 Alkaline Phosphatase 118 U/L (45-117) H 08/05/21 21:00 Lipase 42 U/L (73-393) L 08/05/21 21:00 Home Medications: Benztropine Mesylate [Cogentin] 0.5 mg PO BEDTIME 03/10/21 Doxepin HCl [Sinequan] 50 mg PO BEDTIME 03/10/21 Levothyroxine Sodium [Synthroid] 137 mcg PO DAILY 03/10/21 Linaclotide [Linzess] 72 mcg PO DAILYPRN PRN 03/10/21 Losartan/Hydrochlorothiazide [Losartan-Hctz 100-25 mg Tab] 1 each PO DAILY 03/10/21 Metformin HCl [Glucophage*] 500 mg PO BIDWM 03/10/21 Metoclopramide HCl [Reglan] 10 mg PO QID 03/10/21 OXcarbazepine [Trileptal] 2 tab PO DAILY AFTER SUPPER 03/10/21 OXcarbazepine [Trileptal] 600 mg PO DAILY 03/10/21 Omeprazole [Prilosec] 40 mg PO DAILY 03/10/21 Propranolol [Inderal*] 10 mg PO BIDP PRN 03/10/21 Risperidone [Risperdal] 2 mg PO BID 03/10/21 Zolpidem Tartrate [Ambien*] 10 mg PO BEDTIME 03/10/21 cloNIDine HCL [Catapres*] 0.3 mg PO Q8H 03/10/21 clonazePAM [Klonopin*] 1 mg PO TIDP PRN 03/10/21 ondansetron HCL [Zofran] 4 mg PO Q8HP PRN 03/10/21 Sucralfate [Carafate*] 10 ml PO ACS #420 ucup 08/07/21 New Medications: Sucralfate [Carafate*] 10 ml PO ACS #420 ucup Diet: AHA Activity: Fall precautions Followup: NONE,NONE [Primary Care Provider] - 1-2 Weeks
[2021-08-07] MEDS ORDERED: NICOTINE 21 MG/PAT TD SCH (15:00)
== END 2021-08-07 10:42 | disposition home or self-care (01) ==
LOC: ER 19:30 → ERHOLD 08-06 00:23 → INTOOBSV 08-06 00:23 → 4TH 08-06 01:52
PROVIDERS: ADMIT Internal Medicine; ATTEND Internal Medicine
DX: E87.1 Hypo-osmolality and hyponatremia (principal); E86.0 Dehydration; I16.0 Hypertensive urgency; E11.22 Type 2 diabetes mellitus with diabetic chronic kidney disease; I12.9 Hypertensive chronic kidney disease with stage 1 through stage 4 chronic kidney disease, or unspecified chronic kidney disease; N18.2 Chronic kidney disease, stage 2 (mild); G93.41 Metabolic encephalopathy; F10.20 Alcohol dependence, uncomplicated; E86.1 Hypovolemia; R11.2 Nausea with vomiting, unspecified; R51.9 Headache, unspecified; R10.10 Upper abdominal pain, unspecified; E83.42 Hypomagnesemia; R52 Pain, unspecified; G40.909 Epilepsy, unspecified, not intractable, without status epilepticus; E89.0 Postprocedural hypothyroidism; F31.9 Bipolar disorder, unspecified; F41.9 Anxiety disorder, unspecified; K75.9 Inflammatory liver disease, unspecified; F17.210 Nicotine dependence, cigarettes, uncomplicated; Z79.899 Other long term (current) drug therapy; Z79.84 Long term (current) use of oral hypoglycemic drugs; Z82.49 Family history of ischemic heart disease and other diseases of the circulatory system; Z83.3 Family history of diabetes mellitus; Z80.8 Family history of malignant neoplasm of other organs or systems
CPT/HCPCS: 85025 ×2; 80048 ×5; 36415 ×2; 80320; 83735; 84100; 84132; 84300; 82947 ×5; 84550; 81003; 82570; 83690; 80053; 80307; 83930; 83935; 74176; 76705; 99285; J0360 ×2; J2765 ×2; J1650 ×2; J7030 ×4; J2405 ×2; G0378 ×3

== ENCOUNTER 2021-08-13 11:00 | Emergency (ER) | payer OTHER ==
--- OUTSIDE RECORDS SUMMARY | 2021-08-13 11:04 | XMS REPORT | Continuity of Care Document ---
:1960 Author Organization [facility] t Address [address] [place] [address] Care Team Providers Name Role Phone Sharpless Primary Care Physician RADHA SIMPSON Attending Clinician Unavailable RADHA SIMPSON Attending Clinician Unavailable Doctor Unassigned, Name Attending Clinician Unavailable RAGHU Attending Clinician Unavailable Gramm BAKER TEST, A Attending Clinician Payers Payer Name Policy Type Policy Number Effective Date Expiration Date S flip [facility] [id number] 2017 00:00:00 PLUS Problems This patient has no known problems. Allergies, Adverse Reactions, Alerts Allergy Allergy Status Severity Reaction(s) Onset Inactive Treating Comm ents Source Name Type Date Date Clinician NITRO DRUG Active Other-Cmnt Univer s TRANSDER 07-27 ity of MAL 00:00: [address] [place] ACETAMIN DRUG Active Other-Cmnt 0 Univ ers OPHEN INGREDI - ity of 00:00: [address] Social History Social Habit Start Date Stop Date Quantity Comments Source Sex Assigned At [facility] Alcohol intake 2016-05-01 2016-05-01 Current [facility] es 00:00:00 00:00:00 non-drinker of Medical Ce nter alcohol (finding) Smoking Status Start Date Stop Date Source Current every day smoker 2016-05-01 00:00:00 [facility] Medications Ordered Filled Start Stop Current Ordering Indication Dosage Frequency Signature Comments Components Source Medication Medication Date Date Medication? Clinician (SIG) Name Name OXcarbazepi Yes 600mg [id number] Take [address] ne 2-23 [id number] mg by [facility] (TRILEPTAL) 10:23: 3D mouth [...] Type Clinicians Facility Department ID 2021-06-01 Outpatient [facility] [id number] [place] 01:36:29 [id number] [facility] 2020-08-03 2020-08-03 Outpatient MATT VÁSQUEZ [facility] [id number] Univers 10:00:00 10:00:00 MATT SIMPSON [id number] [facility] 2020-08-03 2020-08-03 Outpatient MATT VÁSQUEZ [facility] [id number] [facility] 10:00:00 10:00:00 MATT SIMPSON [facility] 2020-07-25 2020-07-25 Orders Doctor ABE [id number] 00:00:00 00:00:00 Only Unassigned, BK [id number] [facility] [id number] 2019-09-26 2019-09-26 [facility] [id number] Univers 16:00:00 16:00:00 WALLY [facility] 2019-09-26 2019-09-26 Outpatient R RAGHU, [facility] [id number] Univers 16:00:00 16:00:[address] [facility] 2018-10-21 2018-10-21 Telephone Nazanin, [facility] [id number] 00:00:00 00:00:00 Natacha Nguyen [id number] Ade [id number] Professio [id number] nal [address] Building Results Test Description Test Time Test Comments Results Result Comments Source TSH, THIRD GENERATION 2021-06-27 05:15:49 Test Item Value Reference Range Interpretation Comme nts TSH, THIRD GENERATION (test code = 2821) 2.080 UIU/ML 0.400-4.100 HEMOGLOBIN [id number] 03:46:00 Test Item Value Reference Range Interpretation Comments HEMOGLOBIN A1c (test 6.6 % 4.2-5.6 H [facility]ES code = 84394) ASSOCIATION IDELINES FOR HGB A1C: PREDIABETES/INC REASED [...] UNLESS OTHER PEREZ INDICATED, ALL TESTING PERFORMED [facility] NICIN PATHOLOGY LABOR [facility] [address] [place] [address] GENERAL INTERNAL MEDICINE DOCTOR: DIANA RUSS M.D. CLIA NUMBER [id number] CAP ACCREDITATION N O. [id number] LIPID [id number] 02:59:52 Test Item Value Reference Range Interpretation [...] MOREINFORMATION , SEE CLIENT ANNOUNCE MENT AT [email or web address] RISK RATIO LDL/HDL 4.02 RATIO <3.22 H (test code = 2238)
[2021-08-13] MEDS ORDERED: HYDROCODONE/APAP 10/325 TAB ONE (11:42)
--- NOTE | 2021-08-13 12:16 | RAD REPORT ---
EXAM DESCRIPTION: RAD - Hip Left 2 View - 08/13/2021 11:52 am CLINICAL HISTORY: PAIN COMPARISON: No comparisons FINDINGS: AP and frogleg views of the left hip were obtained. There is no fracture or dislocation. Femoral head maintains smooth rounded contour. There are small s ubcortical degenerative cysts seen in the femoral head. Mild degenerative changes are seen along the superior acetabular rim. Joint spaces appear slightly narrowed. Small spurs are seen along the artic ular margin of the femoral head. No periarticular abnormality. IMPRESSION: Left hip joint degenerative changes are present as detailed with no acute or pathologic changes seen.
--- NOTE | 2021-08-13 12:35 | EDPHYS ---
Physician Documentation [facility] Name: Jaimie Amanda Age: 60 yrs Sex: Female : 1960 Arrival Date: 08/13/2021 Time: 11:01 Bed 10 Private MD: ED Physician Villa Byrd HPI: 08/13 12:30 This 60 yrs old Female presents to ER via Ambulatory with complaints of Groin Pain. rn 12:30 The patient presents with an injury, pain. The complaints affect the left inner thigh. rn Onset: The symptoms/episode began/occurred yesterday. Modifying factors: The symptoms are alleviated by remaining still, the symptoms are aggravated by movement. Associated signs and symptoms: Pertinent negatives fever, swelling, weakness. Severity of symptoms: At their worst the symptoms were moderate, in the emergency department the symptoms have improved. The patient has not experienced similar symptoms in the past. Reports injured left groin while doing cartwheel yesterday with niece. No direct trauma. Is ambulatory. PCP didn't have an appt until 4PM so came in to be evaluated. No other injury.. Historical: - Allergies: 11:16 No Known Allergies; ap3 - PMHx: 11:16 Anxiety; depressive disorder; diabetes mellitus; Hypertensive disorder; Hypothyroidism; ap3 - PSHx: 11:16 Thyroidectomy; ap3 - Immunization history:: Client reports receiving the 2nd dose of the Covid vaccine. - Social history:: Smoking status: Patient reports the use of cigarette tobacco products, smokes one-half pack cigarettes per day. - Family history:: not pertinent. - Hospitalizations: : No recent hospitalization is reported. ROS: 12:30 Constitutional: Negative for fever, chills, and weight loss, MS/Extremity: + left rn groin/inner thigh pain Exam: 12:30 Constitutional: This is a well developed, well nourished patient who is awake, alert, rn and in no acute distress. MS/ Extremity: Pulses equal, no cyanosis. Neurovascular intact. + painful flexion of left hip, no gross deformity or skin changes. Vital Signs: 11:14 BP 146 / 88; Pulse 79; Resp 17; Temp 98.2; Pulse Ox 96% ; Weight 74.84 kg; Height 5 ft. ap3 7 in. (170.18 cm); Pain 9/10; 11:14 Body Mass Index 25.84 (74.84 kg, 170.18 cm) ap3 MDM: 11:07 Patient medically screened. rn 12:30 Differential diagnosis: strain, avulsion injury, hip injury. Data reviewed: vital rn signs, nurses notes, radiologic studies, plain films, and as a result, I will discharge patient. Counseling: I had a detailed discussion with the patient and/or guardian regarding: the historical points, exam findings, and any diagnostic results supporting the discharge/admit diagnosis, radiology results, the need for outpatient follow up, to return to the emergency department if symptoms worsen or persist or if there are any questions or concerns that arise at home. Response to treatment: the patient's symptoms have mildly improved after treatment, and as a result, I will discharge patient. Special discussion: I discussed with the patient/guardian in detail that at this point there is no indication for admission to the hospital. It is understood, however, that if the symptoms persist or worsen the patient needs to return immediately for re-evaluation. 08/13 11:25 Order name: XRAY Hip LEFT 2 view; Complete Time: 12:30 rn Administered Medications: 12:19 Drug: [place] (HYDROcodone-acetaminophen) 10 mg-325 mg 1 tabs Route: PO; iw 12:30 Follow up: Response: No adverse reaction iw Disposition Summary: 08/13/21 12:34 Discharge Ordered Location: Home rn Problem: new rn Symptoms: have improved rn Condition: Stable rn Diagnosis - Strain of muscle, fascia and tendon of left hip rn Followup: rn - With: Private Physician - When: As needed - Reason: Recheck today's complaints, Re-evaluation by your physician Discharge Instructions: - Discharge Summary Sheet rn - Muscle Strain rn Forms: - Medication Reconciliation Form rn - Thank You Letter rn - Antibiotic prompt care rn - Prescription Opioid Use rn Signatures: Dispatcher [employer] Therese Coello RN RN iw Nieto, Roman, MD MD rn Prokisch, Amanda, RN RN ap3 Corrections: (The following items were deleted from the chart) 11:16 11:16 Allergies: Nitroglycerin; ap3 ap3
--- NOTE | 2021-08-13 12:35 | ER ---
Nurse's Notes [facility] Name: Jaimie Amanda Age: 60 yrs Sex: Female : 1960 Arrival Date: 08/13/2021 Time: 11:01 Bed 10 Private MD: Diagnosis: Strain of muscle, fascia and tendon of left hip Presentation: 08/13 11:14 Chief complaint: Patient states: she was getting up to use the restroom early this ap3 morning when she started having right lower groin pain. Patient reports the intensity of the pain has increased over the last few hours, and feels she is unable to wait until her 4pm appointment with her PCP. Coronavirus screen: At this time, the client does not indicate any symptoms associated with coronavirus-19. Ebola Screen: No symptoms or risks identified at this time. Initial Sepsis Screen: Does the patient meet any 2 criteria? No. Patient's initial sepsis screen is negative. Does the patient have a suspected source of infection? No. Patient's initial sepsis screen is negative. Risk Assessment: Do you want to hurt yourself or someone else? Patient reports no desire to harm self or others. Onset of symptoms was August 13, 2021. 11:14 Method Of Arrival: Ambulatory ap3 11:14 Acuity: ZHEN 4 ap3 Triage Assessment: 11:16 General: Appears in no apparent distress. Behavior is calm, cooperative. Pain: ap3 Complains of pain in left femoral area Pain currently is 9 out of 10 on a pain scale. Neuro: Level of Consciousness is awake, alert, obeys commands, Oriented to person, place, time, situation, Appropriate for age Speech is normal. Cardiovascular: Patient's skin is warm and dry. Respiratory: Airway is patent Respiratory effort is even, unlabored, Respiratory pattern is regular, symmetrical. Historical: - Allergies: 11:16 No Known Allergies; ap3 - PMHx: 11:16 Anxiety; depressive disorder; diabetes mellitus; Hypertensive disorder; Hypothyroidism; ap3 - PSHx: 11:16 Thyroidectomy; ap3 - Immunization history:: Client reports receiving the 2nd dose of the Covid vaccine. - Social history:: Smoking status: Patient reports the use of cigarette tobacco products, smokes one-half pack cigarettes per day. - Family history:: not pertinent. - Hospitalizations: : No recent hospitalization is reported. Screenin:17 Abuse screen: Denies threats or abuse. Nutritional screening: No deficits noted. ap3 Tuberculosis screening: No symptoms or risk factors identified. Vital Signs: 11:14 BP 146 / 88; Pulse 79; Resp 17; Temp 98.2; Pulse Ox 96% ; Weight 74.84 kg; Height 5 ft. ap3 7 in. (170.18 cm); Pain 9/10; 11:14 Body Mass Index 25.84 (74.84 kg, 170.18 cm) ap3 ED Course: 11:01 Patient arrived in ED. am2 11:07 Villa Byrd MD is Attending Physician. rn 11:16 Triage completed. ap3 11:17 Arm band placed on right wrist. ap3 11:25 Therese Logan RN is Primary Nurse. iw 11:54 XRAY Hip LEFT 2 view In Process Unspecified. EDMS Administered Medications: 12:19 Drug: [place] (HYDROcodone-acetaminophen) 10 mg-325 mg 1 tabs Route: PO; iw 12:30 Follow up: Response: No adverse reaction iw Outcome: 12:34 Discharge ordered by . rn 12:48 Patient left the ED. iw Signatures: Dispatcher [employer] EDMS Therese Logan RN RN iw Villa Byrd MD MD rn Moreno, Amanda am2 Elisa Gutierrez RN RN ap3 Corrections: (The following items were deleted from the chart) 11:16 11:16 Allergies: Nitroglycerin; ap3 ap3
[2021-08-13 13:11] VITALS: BP 146/88; TEMP 98.2; O2SAT 96
== END 2021-08-13 12:48 | disposition home or self-care (01) ==
LOC: ER 11:00
DX: S76.012A Strain of muscle, fascia and tendon of left hip, initial encounter (principal); I10 Essential (primary) hypertension; E11.9 Type 2 diabetes mellitus without complications; F17.210 Nicotine dependence, cigarettes, uncomplicated
CPT/HCPCS: 99283

== ENCOUNTER 2021-08-18 09:27 | Emergency (ER) | payer OTHER ==
--- OUTSIDE RECORDS SUMMARY | 2021-08-18 09:30 | XMS REPORT | Continuity of Care Document ---
:1960 Author Organization [facility] t Address [address] [place] [address] Care Team Providers Name Role Phone Sharpless Primary Care Physician RADHA SIMPSON Attending Clinician Unavailable RADHA SIMPSON Attending Clinician Unavailable Doctor Unassigned, Name Attending Clinician Unavailable RAGHU Attending Clinician Unavailable Gramm DESIGN LEAD, A Attending Clinician Payers Payer Name Policy Type Policy Number Effective Date Expiration Date S flip [facility] STAR [id number] 2017 00:00:00 PLUS Problems This patient has no known problems. Allergies, Adverse Reactions, Alerts Allergy Allergy Status Severity Reaction(s) Onset Inactive Treating Comm ents Source Name Type Date Date Clinician NITRO DRUG Active Other-Cmnt Univer s TRANSDER 07-27 ity of MAL 00:00: [address] Branch ACETAMIN DRUG Active Other-Cmnt 0 Univ ers OPHEN INGREDI - ity of 00:00: [address] Social History Social Habit Start Date Stop Date Quantity Comments Source Sex Assigned At [facility] Alcohol intake 2016-05-01 2016-05-[address] [facility] es 00:00:00 00:00:00 non-drinker of Medical Ce nter alcohol (finding) Smoking Status Start Date Stop Date Source Current every day smoker 2016-05-01 00:00:00 [facility] Medications Ordered Filled Start Stop Current Ordering Indication Dosage Frequency Signature Comments Components Source Medication Medication Date Date Medication? Clinician (SIG) Name Name OXcarbazepi Yes 600mg [id number] Take [address] ne 2-23 [id number] [facility] by [facility] (TRILEPTAL) 10:23: 3D mouth [...] Type Clinicians Facility Department ID 2021-06-01 Outpatient [facility] [id number] [place] 01:36:29 [id number] [facility] 2020-08-03 2020-08-03 Outpatient MATT VÁSQUEZ [facility] [id number] Univers 10:00:00 10:00:00 MATT SIMPSON [id number] [facility] 2020-08-03 2020-08-03 Outpatient MATT VÁSQUEZ [facility] [id number] [facility] 10:00:00 10:00:00 MATT SIMPSON [facility] 2020-07-25 2020-07-25 Orders Doctor ABE [id number] 00:00:00 00:00:00 Only Unassigned, BK [id number] [place] [facility] [id number] 2019-09-26 2019-09-26 [facility] [id number] Univers 16:00:00 16:00:00 WALLY [facility] 2019-09-26 2019-09-26 Outpatient R RAGHU, [facility] [id number] Univers 16:00:00 16:00:00 WALLY yeager [facility] 2018-10-21 2018-10-21 Telephone Nazanin, [facility] [id number] 00:00:00 00:00:00 Natacha Nguyen [id number] Ade [id number] Professio [id number] nal 204 Building Results Test Description Test Time Test Comments Results Result Comments Source TSH, THIRD GENERATION 2021-06-27 05:15:49 Test Item Value Reference Range Interpretation Comme nts TSH, THIRD GENERATION (test code = 2821) 2.080 UIU/ML 0.400-4.100 HEMOGLOBIN [id number] 03:46:00 Test Item Value Reference Range Interpretation Comments HEMOGLOBIN A1c (test 6.6 % 4.2-5.6 H [facility] DI[facility]ETES code = 83210) ASSOCIATION IDELINES FOR HGB A1C: PREDIABETES/INC REASED [...] UNLESS OTHER PEREZ INDICATED, ALL TESTING PERFORMED [facility] NICME PATHOLOGY LABOR [facility] [address] [place] [address] ARTIST'S MODEL: DIANA RUSS M.D. CLIA NUMBER [id number] CAP ACCREDITATION N O. [id number] LIPID [id number] 02:59:52 Test Item Value Reference Range Interpretation [...] MOREINFORMATION , SEE CLIENT ANNOUNCE MENT AT [email or web address] LDL/HDL 4.02 RATIO <3.22 H (test code = 2238)
--- NOTE | 2021-08-18 10:38 | ER ---
Nurse's Notes [facility] Name: Jaimie Amanda Age: 60 yrs Sex: Female : 1960 Arrival Date: 08/18/2021 Time: 09:28 Bed 11 Private MD: Diagnosis: Low back pain Presentation: 08/18 09:50 Chief complaint: Patient states: "I am here with the same problem again, I was here aa5 about a week ago with back pain". Pt c/o mid-low back pain. Pt states "I hurt it doing a cartwheel with my niece". 09:50 Coronavirus screen: At this time, the client does not indicate any symptoms associated aa5 with coronavirus-19. Ebola Screen: No symptoms or risks identified at this time. Initial Sepsis Screen: Does the patient meet any 2 criteria? No. Patient's initial sepsis screen is negative. Does the patient have a suspected source of infection? No. Patient's initial sepsis screen is negative. Risk Assessment: Do you want to hurt yourself or someone else? Patient reports no desire to harm self or others. Onset of symptoms was August 2021. 09:50 Method Of Arrival: Ambulatory aa5 09:50 Acuity: ZHEN 4 aa5 Triage Assessment: 10:40 General: Appears in no apparent distress. Behavior is calm, cooperative. iw Musculoskeletal: Range of motion: intact in all extremities. Historical: - Allergies: 09:53 No Known Allergies; aa5 - PMHx: 09:53 Anxiety; depressive disorder; diabetes mellitus; Hypertensive disorder; Hypothyroidism; aa5 - PSHx: 09:53 Thyroidectomy; aa5 - Immunization history:: Adult Immunizations unknown. - Social history:: Smoking status: Patient reports the use of cigarette tobacco products, smokes one-half pack cigarettes per day. Screenin:45 Abuse screen: Denies threats or abuse. Denies injuries from another. Nutritional iw screening: No deficits noted. Tuberculosis screening: No symptoms or risk factors identified. Fall Risk None identified. Assessment: 10:00 General: Appears in no apparent distress. Behavior is calm, cooperative. Pain: iw Complains of pain in pelvis. Neuro: Level of Consciousness is awake, alert, obeys commands, Oriented to person, place, time, situation. Cardiovascular: Patient's skin is warm and dry. Respiratory: Respiratory effort is even, unlabored. Derm: Skin is intact, is healthy with good turgor. Musculoskeletal: Range of motion: intact in all extremities. Vital Signs: 09:50 BP 159 / 89; Pulse 76; Resp 18 S; Temp 97.5(TE); Pulse Ox 98% on R/A; Weight 74.84 kg aa5 (R); Height 5 ft. 7 in. (170.18 cm) (R); Pain 9/10; 09:50 Body Mass Index 25.84 (74.84 kg, 170.18 cm) aa5 ED Course: 09:28 Patient arrived in ED. as 09:50 Arm band placed on. aa5 09:53 Triage completed. aa5 10:04 Tera Raymond MD is Attending Physician. kdr 10:30 Patient has correct armband on for positive identification. iw 10:33 Therese Logan, RN is Primary Nurse. iw 10:45 No provider procedures requiring assistance completed. Patient did not have IV access iw during this emergency room visit. Administered Medications: 10:00 Drug: SOLU-Medrol (methylPREDNISolone sodium succinate) 60 mg Route: IM; Site: right iw ventrogluteal; 10:50 Follow up: Response: No adverse reaction iw 10:40 Drug: Robaxin (methocarbamol) 750 mg Route: PO; iw 10:50 Follow up: Response: No adverse reaction iw Medication: 10:30 VIS not applicable for this client. iw Outcome: 10:37 Discharge ordered by . kdr 10:45 Discharged to home ambulatory. iw 10:45 Condition: good 10:45 Discharge instructions given to patient, Instructed on discharge instructions, follow up and referral plans. medication usage, Demonstrated understanding of instructions, follow-up care, medications, Prescriptions given X 2. 10:46 Patient left the ED. iw Signatures: Tera Raymond MD MD kdr Ada Marley as Therese Logan, RN RN iw Bhavna Corado RN RN aa
--- NOTE | 2021-08-18 10:38 | EDPHYS ---
Physician Documentation [facility] Name: Jaimie Amanda Age: 60 yrs Sex: Female : 1960 Arrival Date: 08/18/2021 Time: 09:28 Bed 11 Private MD: ED Physician Tera Raymond HPI: 08/18 15:08 This 60 yrs old Female presents to ER via Ambulatory with complaints of Back Pain. kdr 15:08 The patient presents with pain that is acute. The symptoms are located in the low back. kdr Onset: The symptoms/episode began/occurred suddenly, 1 week(s) ago. Patient states that her pain radiates from her low back down to the upper aspect of her posterior thighs bilaterally. Associated signs and symptoms: The patient has no apparent associated signs or symptoms. The problem was sustained during a fall, Patient states that she was doing a cartwheel about a week ago when she fell hitting her back on the ground. She was seen in the ED here at that time and given some medication which she said was not providing sufficient relief.. Modifying factors: The patient symptoms are alleviated by nothing, the patient symptoms are aggravated by any movement. Severity of symptoms: At their worst the symptoms were mild, moderate, just prior to arrival. The patient has not experienced similar symptoms in the past. The patient has been recently seen at the [facility] Emergency Department, last week. Historical: - Allergies: 09:53 No Known Allergies; aa5 - PMHx: 09:53 Anxiety; depressive disorder; diabetes mellitus; Hypertensive disorder; Hypothyroidism; aa5 - PSHx: 09:53 Thyroidectomy; aa5 - Immunization history:: Adult Immunizations unknown. - Social history:: Smoking status: Patient reports the use of cigarette tobacco products, smokes one-half pack cigarettes per day. ROS: 15:08 Constitutional: Negative for fever, chills, and weight loss, Eyes: Negative for injury, kdr pain, redness, and discharge, ENT: Negative for injury, pain, and discharge, Neck: Negative for injury, pain, and swelling, Cardiovascular: Negative for chest pain, palpitations, and edema, Respiratory: Negative for shortness of breath, cough, wheezing, and pleuritic chest pain, Abdomen/GI: Negative for abdominal pain, nausea, vomiting, diarrhea, and constipation, : Negative for injury, bleeding, discharge, and swelling, MS/Extremity: Negative for injury and deformity, Skin: Negative for injury, rash, and discoloration, Neuro: Negative for headache, weakness, numbness, tingling, and seizure activity. 15:08 Back: Positive for pain at rest, pain with movement, of the low back area. Exam: 15:08 Constitutional: This is a well developed, well nourished patient who is awake, alert, kdr and in no acute distress. Head/Face: Normocephalic, atraumatic. Eyes: Pupils equal round and reactive to light, extra-ocular motions intact. Lids and lashes normal. Conjunctiva and sclera are non-icteric and not injected. Cornea within normal limits. Periorbital areas with no swelling, redness, or edema. Neck: Trachea midline, no thyromegaly or masses palpated, and no cervical lymphadenopathy. Supple, full range of motion without nuchal rigidity, or vertebral point tenderness. No Meningismus. Chest/axilla: Normal chest wall appearance and motion. Nontender with no deformity. No lesions are appreciated. Cardiovascular: Regular rate and rhythm with a normal S1 and S2. No gallops, murmurs, or rubs. Normal PMI, no JVD. No pulse deficits. Respiratory: Lungs have equal breath sounds bilaterally, clear to auscultation and percussion. No rales, rhonchi or wheezes noted. No increased work of breathing, no retractions or nasal flaring. Abdomen/GI: Soft, non-tender, with normal bowel sounds. No distension or tympany. No guarding or rebound. No evidence of tenderness throughout. Skin: Warm, dry with normal turgor. Normal color with no rashes, no lesions, and no evidence of cellulitis. 15:08 Back: pain, that is mild, of the low back area. Vital Signs: 09:50 BP 159 / 89; Pulse 76; Resp 18 S; Temp 97.5(TE); Pulse Ox 98% on R/A; Weight 74.84 kg aa5 (R); Height 5 ft. 7 in. (170.18 cm) (R); Pain 9/10; 09:50 Body Mass Index 25.84 (74.84 kg, 170.18 cm) aa5 MDM: 10:37 Patient medically screened. kdr 15:08 Data reviewed: vital signs, nurses notes. Counseling: I had a detailed discussion with kdr the patient and/or guardian regarding: the historical points, exam findings, and any diagnostic results supporting the discharge/admit diagnosis, the need for outpatient follow up. Administered Medications: 10:00 Drug: SOLU-Medrol (methylPREDNISolone sodium succinate) 60 mg Route: IM; Site: right iw ventrogluteal; 10:50 Follow up: Response: No adverse reaction iw 10:40 Drug: Robaxin (methocarbamol) 750 mg Route: PO; iw 10:50 Follow up: Response: No adverse reaction iw Disposition Summary: 08/18/21 10:37 Discharge Ordered Location: Home kdr Problem: an ongoing problem kdr Symptoms: have improved kdr Condition: Stable kdr Diagnosis - Low back pain kdr Followup: kdr - With: Private Physician - When: 2 - 3 days - Reason: If symptoms return, Further diagnostic work-up, Recheck today's complaints, Continuance of care, Re-evaluation by your physician Discharge Instructions: - Discharge Summary Sheet kdr - Acute Back Pain, Adult kdr - Musculoskeletal Pain kdr Forms: - Medication Reconciliation Form kdr - Thank You Letter kdr Prescriptions: - methocarbamol 750 mg Oral Tablet - take 2 tablets by ORAL route 3 times per day As needed; 18 tablet; Refills: 0, kdr Product Selection Permitted - Prednisone 20 mg Oral Tablet - take 1 tablet by ORAL route once daily for 4 days; 4 tablet; Refills: 0, kdr Product Selection Permitted Signatures: Tera Raymond MD MD kdr Therese Logan RN RN Bhavna Corado RN RN aa5
[2021-08-18] MEDS ORDERED: METHYLPREDNISOLONE 125 MG INJ ONE (10:40)
[2021-08-18] MEDS ORDERED: methocarbamoL 500 MG TAB ONE (10:41)
[2021-08-18 10:50] VITALS: BP 159/89; TEMP 97.5; O2SAT 98
== END 2021-08-18 10:46 | disposition home or self-care (01) ==
LOC: ER 09:27
DX: M54.50 Low back pain, unspecified (principal); E11.9 Type 2 diabetes mellitus without complications; I10 Essential (primary) hypertension; F17.210 Nicotine dependence, cigarettes, uncomplicated
CPT/HCPCS: 96372; 99283; J2930

== ENCOUNTER 2021-08-26 06:37 | Emergency (ER) | payer OTHER ==
--- OUTSIDE RECORDS SUMMARY | 2021-08-26 06:41 | XMS REPORT | Continuity of Care Document ---
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 Allergies, Adverse Reactions, Alerts Allergy Allergy Status Severity Reaction(s) Onset Inactive Treating Comm ents Source Name Type Date Date Clinician NITRO DRUG Active Other-Cmnt 0 Univer s TRANSDER 07-27 ity of MAL 00:00: [address] [place] ACETAMIN DRUG Active Other-Cmnt 0 Univ ers OPHEN INGREDI - ity of 00:00: [address] Social History Social Habit Start Date Stop Date Quantity Comments Source Sex Assigned At [facility] Alcohol intake 2016-05-01 2016-05-01 Current [facility] es 00:00:00 00:00:00 non-drinker of Medical Ce nter alcohol (finding) Smoking Status Start Date Stop Date Source Current every day smoker 2016-05-01 00:00:00 [facility] Medications Ordered Filled Start Stop Current Ordering Indication Dosage Frequency Signature Comments Components Source Medication Medication Date Date Medication? Clinician (SIG) Name Name OXcarbazepi Yes 600mg [id number] Take [address] ne 2-23 [id number] [facility] by [facility] (TRILEPTAL) 10:23: 3D mouth [...] Department ID 2021-06-01 Outpatient [facility] [id number] [place] 01:36:29 [id number] [facility] 2020-08-03 2020-08-03 Outpatient MATT VÁSQUEZ [facility] [id number] Univers 10:00:00 10:00:00 MATT SIMPSON [id number] [facility] 2020-08-03 2020-08-03 Outpatient MATT VÁSQUEZ [facility] [id number] [facility] 10:00:00 10:00:00 MATT SIMPSON [facility] 2020-07-25 2020-07-25 Orders Doctor ABE [id number] 00:00:00 00:00:00 Only Unassigned, BK 350.1.13.10 Grabill [facility] [id number] 2019-09-26 2019-09-26 [facility] [id number] Univers 16:00:00 16:00:00 WALLY [facility] 2019-09-26 2019-09-26 Outpatient R RAGHU, [facility] [id number] Univers 16:00:00 16:00:[address] [facility] 2018-10-21 2018-10-21 Telephone Nazanin, [facility] [id number] 00:00:00 00:00:00 Natacha Nguyen [id number] Ade [id number] Professio [id number] nal 204 Building Results Test Description Test Time Test Comments Results Result Comments Source TSH, THIRD GENERATION 2021-06-27 05:15:49 Test Item Value Reference Range Interpretation Comme nts TSH, THIRD GENERATION (test code = 2821) 2.080 UIU/ML 0.400-4.100 HEMOGLOBIN [id number] 03:46:00 Test Item Value Reference Range Interpretation Comments HEMOGLOBIN A1c (test 6.6 % 4.2-5.6 H [employer] DIABETES code = 45918) ASSOCIATION IDELINES FOR HGB A1C: PREDIABETES/INC REASED [...] INDICATED, ALL TESTING PERFORMED [facility] NICWA PATHOLOGY LABOR [facility] [address] [place] [address] RN PRIOR AUTHORIZATION: DIANA RUSS M.D. CLIA NUMBER [id number] CAP ACCREDITATION N O. [id number] LIPID [id number] 02:59:52 Test Item Value Reference Range Interpretation [...] MOREINFORMATION , SEE CLIENT ANNOUNCE MENT AT [email or web address] LDL/HDL 4.02 RATIO <3.22 H (test code = 2238)
[2021-08-26 07:11] LABS: Absolute Lymphocytes (CBC) 1.9 K/uL (0.7-4.9); Hematocrit 41.3 % (36.0-45.0); Lymphocytes % 23.9 % (15.3-44.8); MPV 6.3 fL (7.6-11.3); RBC Red Blood Cell Count 4.58 M/uL (3.86-4.86)
[2021-08-26 07:36] LABS: Albumin 3.9 g/dL (3.4-5.0); Bilirubin Total 0.4 mg/dL (0.2-1.0); Potassium 3.7 mmol/L (3.5-5.1)
[2021-08-26] MEDS ORDERED: NA CHLORIDE 0.9% 1,000 ML ONE (07:49)
[2021-08-26] MEDS ORDERED: ONDANSETRON 4 MG/2 ML VIAL ONE (08:03)
[2021-08-26] MEDS ORDERED: MORPHINE 2 MG/ML SYR ONE (08:03)
--- NOTE | 2021-08-26 08:32 | RAD REPORT ---
EXAM DESCRIPTION: RAD - Chest Single View - 08/26/2021 8:20 am CLINICAL HISTORY: COUGH, upper abdominal pain COMPARISON: Portable August 04 TECHNIQUE: AP portable chest image was obtained 08/26/2021 8:20 am . FINDINGS: Lungs are clear. Interstitial pattern matches comparison. Heart and vasculature are normal . No measurable pleural effusion and no pneumothorax. No acute bony abnormality seen. No acute aortic findings suspected. IMPRESSION: No acute cardiopulmonary process.
--- NOTE | 2021-08-26 08:32 | RAD REPORT ---
EXAM DESCRIPTION: US - Abdomen Exam Limited - 08/26/2021 8:00 am CLINICAL HISTORY: ABD PAIN COMPARISON: Abdomen Pelvis Wo Contrast dated 08/05/2021; Abdomen Pelvis Wo Contrast dated 08/27/19 22 FINDINGS: No gallstones, sludge or other abnormalities within the gallbladder lumen. There is no wal l thickening or pericholecystic fluid. No common duct stone or biliary tree dilatation identified. Partially imaged liver shows coarsened, increased parenchymal echogenicity. Parenchymal pattern is sp ared near the gallbladder fossa. This is a pattern commonly seen with fatty infiltration of the liver . IMPRESSION: Normal gallbladder and biliary tree ultrasound.
--- NOTE | 2021-08-26 08:43 | RAD REPORT ---
EXAM DESCRIPTION: CT - Abdomen Pelvis Wo Contrast - 08/26/2021 8:17 am CLINICAL HISTORY: RLQ abdominal pain COMPARISON: Abdomen Pelvis Wo Contrast dated 08/05/2021; Abdomen Pelvis W Contrast dated 2 TECHNIQUE: Axial [address] imaging of the abdomen and pelvis was performed without IV contrast. No IV contrast was given because of allergy, abnormal renal function, patient refusal or physician re quest. No oral contrast was administered. All CT scans are performed using dose optimization technique as appropriate and may include automated exposure control or mA/KV adjustment according to patient size. FINDINGS: No suspicious findings in the lung bases. The liver, spleen and pancreas show no new or suspicious findings on non-contrast imaging. Earlier ga llbladder ultrasound showed no acute gallbladder or biliary tree finding. No abnormalities are eviden t on this study. A 10 millimeter low-density focus in the dome of the right lobe has not changed. Ult rasound also showed evidence for fatty infiltration of the liver. CT attenuation is borderline for fa tty infiltration. No hydronephrosis or suspicious renal mass. Kidneys do not appear to be edematous. No stranding in th e perinephric fat. No significant adrenal finding. Isodense renal masses and pyelonephritis cannot be excluded in the absence of IV contrast. The urinary bladder is without significant finding. Uterus a nd ovaries show no suspicious findings. No dilated bowel loops or bowel wall thickening. No free air, free fluid or inflammatory stranding. No hernia, mass or bulky lymphadenopathy. No acute bone findings seen. Patient has L5-S1 degenerative disc and endplate changes. IMPRESSION: Noncontrast CT abdomen and pelvis imaging shows no acute or emergent finding. Nonacute findings detailed in the body of the report. Full assessment is limited is the absence of IV contrast.
--- NOTE | 2021-08-26 08:45 | EDPHYS ---
Physician Documentation [facility] Name: Jaimie Amanda Age: 60 yrs Sex: Female : 1960 Arrival Date: 08/26/2021 Time: 06:40 Bed 13 Private MD: COSTA Physician Diego Ramirez HPI: 08/26 07:49 This 60 yrs old Female presents to ER via Ambulatory with complaints of hannah Abdominal Swelling, Flank Pain. Historical: - Allergies: 06:53 No Known Allergies; ke1 - PMHx: 06:53 Anxiety; depressive disorder; diabetes mellitus; Hypertensive disorder; Hypothyroidism; ke1 - Immunization history:: Client reports receiving the 2nd dose of the Covid vaccine. - Social history:: Smoking status: Patient reports the use of cigarette tobacco products, smokes one pack cigarettes per day. ROS: 07:50 Constitutional: Negative for fever, chills, and weight loss, Eyes: Negative for injury, hannah pain, redness, and discharge, ENT: Negative for injury, pain, and discharge, Neck: Negative for injury, pain, and swelling, Cardiovascular: Negative for chest pain, palpitations, and edema, Respiratory: Negative for shortness of breath, cough, wheezing, and pleuritic chest pain, Back: Negative for injury and pain, : Negative for injury, bleeding, discharge, and swelling, MS/Extremity: Negative for injury and deformity, Skin: Negative for injury, rash, and discoloration, Neuro: Negative for headache, weakness, numbness, tingling, and seizure, Psych: Negative for depression, anxiety, suicide ideation, homicidal ideation, and hallucinations, Allergy/Immunology: Negative for hives, rash, and allergies, Endocrine: Negative for neck swelling, polydipsia, polyuria, polyphagia, and marked weight changes, Hematologic/Lymphatic: Negative for swollen nodes, abnormal bleeding, and unusual bruising. 07:50 Abdomen/GI: Positive for abdominal pain, of the right upper quadrant. Exam: 07:50 Constitutional: This is a well developed, well nourished patient who is awake, alert, hannah and in no acute distress. Head/Face: Normocephalic, atraumatic. Eyes: Pupils equal round and reactive to light, extra-ocular motions intact. Lids and lashes normal. Conjunctiva and sclera are non-icteric and not injected. Cornea within normal limits. Periorbital areas with no swelling, redness, or edema. ENT: Nares patent. No nasal discharge, no septal abnormalities noted. Tympanic membranes are normal and external auditory canals are clear. Oropharynx with no redness, swelling, or masses, exudates, or evidence of obstruction, uvula midline. Mucous membranes moist. Neck: Trachea midline, no thyromegaly or masses palpated, and no cervical lymphadenopathy. Supple, full range of motion without nuchal rigidity, or vertebral point tenderness. No Meningismus. Chest/axilla: Normal chest wall appearance and motion. Nontender with no deformity. No lesions are appreciated. Cardiovascular: Regular rate and rhythm with a normal S1 and S2. No gallops, murmurs, or rubs. Normal PMI, no JVD. No pulse deficits. Respiratory: Lungs have equal breath sounds bilaterally, clear to auscultation and percussion. No rales, rhonchi or wheezes noted. No increased work of breathing, no retractions or nasal flaring. Back: No spinal tenderness. No costovertebral tenderness. Full range of motion. Female : Normal external genitalia. Skin: Warm, dry with normal turgor. Normal color with no rashes, no lesions, and no evidence of cellulitis. MS/ Extremity: Pulses equal, no cyanosis. Neurovascular intact. Full, normal range of motion. Neuro: Awake and alert, GCS 15, oriented to person, place, time, and situation. Cranial nerves II-XII grossly intact. Motor strength 5/5 in all extremities. Sensory grossly intact. Cerebellar exam normal. Normal gait. Psych: Awake, alert, with orientation to person, place and time. Behavior, mood, and affect are within normal limits. 07:50 Abdomen/GI: Inspection: distension, Bowel sounds: active, all quadrants, Palpation: mild abdominal tenderness, in the right upper quadrant, Liver: no appreciated palpable abnormalities, Hernia: not appreciated. 08:50 ECG was reviewed by the Attending Physician. [facility] Vital Signs: 06:49 Weight 74.84 kg; Height 5 ft. 7 in. (170.18 cm); Pain 10/10; ke1 06:53 BP 193 / 99; Pulse 84; Resp 18; Temp 98.6; Pulse Ox 95% ; ke1 09:04 BP 172 / 95; Pulse 83; Resp 14; Pulse Ox 96% on R/A; ww 06:49 Body Mass Index 25.84 (74.84 kg, 170.18 cm) ke1 MDM: 06:44 Patient medically screened. rn 07:21 Patient medically screened. [facility] 07:51 Differential diagnosis: bowel obstruction, Cholelithiasis, gastritis, Mesenteric hannah ischemia or infarction, non-specific abd pain, pancreatitis, urinary tract infection. Data reviewed: vital signs, nurses notes, lab test result(s), EKG, radiologic studies, CT scan, plain films, ultrasound. Data interpreted: desk monitor: rate is 84 beats/min, rhythm is regular, Pulse oximetry: on room air is 95 %. Test interpretation: by ED physician or midlevel provider: ECG, plain radiologic studies. Counseling: I had a detailed discussion with the patient and/or guardian regarding: the historical points, exam findings, and any diagnostic results supporting the discharge/admit diagnosis, lab results, radiology results. 08/26 06:47 Order name: CBC with Diff; Complete Time: 07:48 08/26 06:47 Order name: CMP; Complete Time: 07:48 08/26 06:47 Order name: Lipase; Complete Time: 07:48 08/26 07:07 Order name: US Abdomen Limited; Complete Time: 08:35 08/26 07:53 Order name: Chest Single View XRAY; Complete Time: 08:35 [facility] 08/26 07:53 Order name: Troponin High Sensitivity; Complete Time: 08:25 [facility] 08/26 07:53 Order name: EKG; Complete Time: 07:53 [facility] 08/26 07:57 Order name: CT Abd/Pelvis - Without Contrast [facility] 08/26 06:47 Order name: IV Saline Lock; Complete Time: 07:29 08/26 06:47 Order name: Labs collected and sent; Complete Time: 07:29 08/26 07:53 Order name: EKG - Nurse/Tech; Complete Time: 08:38 [facility] EC:50 Rate is 72 beats/min. Rhythm is regular. QRS [place] is Normal. OK interval is normal. QRS hannah interval is normal. QT interval is normal. No Q waves. T waves are Normal. No ST changes noted. Clinical impression: Normal ECG and No evidence of ischemia. Interpreted by me. Reviewed by me. Administered Medications: 07:53 Drug: NS 0.9% 1000 ml Route: IV; Rate: 1 bolus; Site: left antecubital; ww 07:59 Drug: Zofran (Ondansetron) 4 mg Route: IVP; Site: left antecubital; ww 08:09 Drug: morphine 2 mg Route: IVP; Infused Over: 4 mins; Site: left antecubital; Disposition Summary: 08/26/21 08:44 Discharge Ordered Location: Home hannah Problem: new hannah Symptoms: have improved hannah Condition: Fair hannah Diagnosis - Abdominal pain, Generalized hannah - Hypo-osmolality and hyponatremia hannah - Other depressive episodes hannah - Essential (primary) hypertension hannah Followup: hannah - With: Private Physician - When: 2 - 3 days - Reason: Recheck today's complaints, Continuance of care, Re-evaluation by your physician Followup: hannah - With: Candi Crocker MD - When: 2 - 3 days - Reason: Recheck today's complaints, Re-evaluation by your physician Discharge Instructions: - Discharge Summary Sheet hannah - Abdominal Pain, Adult hannah - Hypertension, Adult hannah - Hyponatremia hannah - Hypertension, Adult, [id number] hannah - How to Take Your Blood Pressure, [id number]-[id number] hannah - Hyponatremia, Wzdu-ml-[id number] hannah - Managing Your Hypertension hannah Forms: - Medication Reconciliation Form hannah - Thank You Letter hannah - Antibiotic Education hannah - Prescription Opioid Use hannah Prescriptions: - Pepcid 20 mg Oral Tablet - take 1 tablet by ORAL route every 12 hours for 30 days; 60 tablet; Refills: 0, hannah Product Selection Permitted - dicyclomine 20 mg Oral Tablet - take 1 tablet by ORAL route 4 times per day; 28 tablet; Refills: 0, Product hannah Selection Permitted - losartan 100 mg Oral tablet - take 1 tablet by ORAL route once daily; 20 tablet; Refills: 0, Product hannah Selection Permitted Signatures: Dispatcher [employer] Diego Osorio MD MD cha Nieto, Roman, MD MD rn Wood, Whitney RN Jason Bender RN RN ke1
--- NOTE | 2021-08-26 08:45 | ER ---
Nurse's Notes [facility] Name: Jaimie Amanda Age: 60 yrs Sex: Female : 1960 Arrival Date: 08/26/2021 Time: 06:40 Bed 13 Private MD: Diagnosis: Abdominal pain, Generalized;Hypo-osmolality and hyponatremia;Other depressive episodes;Essential (primary) hypertension Presentation: 08/26 06:49 Chief complaint: Patient states: Pain abdomen RUQ started at around 1 am this morning. ke1 Coronavirus screen: Vaccine status: Patient reports receiving the 2nd dose of the covid vaccine. Ebola Screen: No symptoms or risks identified at this time. Initial Sepsis Screen: Does the patient meet any 2 criteria? No. Patient's initial sepsis screen is negative. Does the patient have a suspected source of infection? No. Patient's initial sepsis screen is negative. Risk Assessment: Do you want to hurt yourself or someone else? Patient reports no desire to harm self or others. Onset of symptoms was August 26, 2021 at 01:00. 06:49 Method Of Arrival: Ambulatory ke 06:49 Acuity: ZHEN 3 ke1 Triage Assessment: 06:54 General: Appears uncomfortable, Behavior is anxious. Pain: Complains of pain in abdomen ke1 RUQ. Respiratory: Respiratory effort is even, unlabored, Respiratory pattern is regular, symmetrical. GI: Abdomen is round non-distended, Bowel sounds present X 4 quads. Historical: - Allergies: 06:53 No Known Allergies; ke1 - PMHx: 06:53 Anxiety; depressive disorder; diabetes mellitus; Hypertensive disorder; Hypothyroidism; ke1 - Immunization history:: Client reports receiving the 2nd dose of the Covid vaccine. - Social history:: Smoking status: Patient reports the use of cigarette tobacco products, smokes one pack cigarettes per day. Screenin:56 Abuse screen: Denies threats or abuse. Nutritional screening: No deficits noted. ke1 Tuberculosis screening: No symptoms or risk factors identified. Fall Risk No fall in past 12 months (0 pts). IV access (20 points). Ambulatory Aid- None/Bed Rest/Nurse Assist (0 pts). Gait- Normal/Bed Rest/Wheelchair (0 pts) Mental Status- Oriented to own ability (0 pts). Total Rubio Fall Scale indicates No Risk (0-24 pts). Assessment: 06:58 Reassessment: Recent dental work with flipper in the mouth. GI: Abd is soft Abdomen is ke1 tender to palpation in right upper quadrant. 07:30 General: Appears in no apparent distress. Behavior is cooperative. Pain: Complains of ww pain in right upper quadrant. Neuro: Level of Consciousness is awake, alert, obeys commands, Oriented to person, place, time, situation, Moves all extremities. Speech is normal. Cardiovascular: Capillary refill < 3 seconds Patient's skin is warm and dry. Respiratory: Airway is patent Respiratory effort is even, unlabored, Respiratory pattern is regular, symmetrical. GI: Abdomen is non-distended, Reports upper abdominal pain. Derm: Skin is healthy with good turgor. 07:45 Reassessment: Dr. Ramirez and ultrasound at bedside. ww Vital Signs: 06:49 Weight 74.84 kg; Height 5 ft. 7 in. (170.18 cm); Pain 10/10; ke1 06:53 BP 193 / 99; Pulse 84; Resp 18; Temp 98.6; Pulse Ox 95% ; ke1 09:04 BP 172 / 95; Pulse 83; Resp 14; Pulse Ox 96% on R/A; ww 06:49 Body Mass Index 25.84 (74.84 kg, 170.18 cm) ke1 ED Course: 06:40 Patient arrived in ED. ja2 06:49 Jason Cervantes, RN is Primary Nurse. ke1 06:50 Triage completed. ke1 06:57 Arm band placed on left wrist. ke1 06:58 Bed in low position. Call light in reach. ke1 07:00 Missed attempt(s): 20 gauge Bleeding controlled, band aid applied, catheter tip intact. oe 07:20 Diego Ramirez MD is Attending Physician. hannah 07:28 Inserted saline lock: 22 gauge in left antecubital area, using aseptic technique. ke1 07:41 Side rails up X 1. Door closed. Noise minimized. Warm blanket given. mb7 08:02 US Abdomen Limited In Process Unspecified. EDMS 08:19 CT Abd/Pelvis - Without Contrast In Process Unspecified. EDMS 08:22 Chest Single View XRAY In Process Unspecified. EDMS 08:41 Candi Crocker MD is Referral Physician. hannah 09:05 No provider procedures requiring assistance completed. IV discontinued, intact, ww bleeding controlled, No redness/swelling at site. Pressure dressing applied. Administered Medications: 07:53 Drug: NS 0.9% 1000 ml Route: IV; Rate: 1 bolus; Site: left antecubital; ww 07:59 Drug: Zofran (Ondansetron) 4 mg Route: IVP; Site: left antecubital; ww 08:09 Drug: morphine 2 mg Route: IVP; Infused Over: 4 mins; Site: left antecubital; ww Outcome: 08:44 Discharge ordered by . [facility] 09:05 Discharged to home ambulatory. 09:05 Condition: stable 09:05 Discharge instructions given to patient, Instructed on discharge instructions, follow up and referral plans. medication usage, safety practices, Demonstrated understanding of instructions, follow-up care, medications, Prescriptions given X 3. 09:06 Patient left the ED. ww Signatures: Dispatcher [employer] EDMS Diego Ramirez MD MD cha Espinosa, Orlando oe Alexander, Jessica Radha Munoz 7 Candelaria Yeboah, RN RN Jason Virk, CATY RN ke1 Corrections: (The following items were deleted from the chart) 06:53 06:49 Chief complaint: Patient states: Pain abdomen RLQ started at around 1 am this ke1 morning ke1
[2021-08-26 09:27] VITALS: TEMP 98.6
[2021-08-26 09:29] VITALS: BP 172/95; O2SAT 96
--- NOTE | 2021-08-28 07:28 | EKG ---
Test Date: 2021-08-26 Test Time: 08:31:42 Television Station Manager: AMANDA MEASUREMENT RESULTS: Intervals: Rate: 72 ND: 182 QRSD: 94 QT: 428 QTc: 468 [place]: P: 47 ND: 182 QRS: 95 T: 51 INTERPRETIVE STATEMENTS: Normal sinus rhythm Rightward axis Borderline ECG Compared to ECG 08/26/2021 08:31:12 No significant changes Electronically Signed On 08-28-21 07:20:01 CDT by Daniel Cespedes
--- NOTE | 2021-08-28 07:28 | EKG ---
Test Date: 2021-08-26 Test Time: 08:31:12 Service Officer: AMANDA MEASUREMENT RESULTS: Intervals: Rate: 72 KS: 184 QRSD: 90 QT: 400 QTc: 438 [place]: P: 47 KS: 184 QRS: 96 T: 38 INTERPRETIVE STATEMENTS: Normal sinus rhythm Rightward axis Borderline ECG Compared to ECG 08/06/2021 02:25:59 No significant changes Electronically Signed On 08-28-21 07:20:02 CDT by Daniel Cespedes
== END 2021-08-26 09:06 | disposition home or self-care (01) ==
LOC: ER 06:37
DX: R10.84 Generalized abdominal pain (principal); E87.1 Hypo-osmolality and hyponatremia; I10 Essential (primary) hypertension; F32.89 Other specified depressive episodes; F17.210 Nicotine dependence, cigarettes, uncomplicated; E11.9 Type 2 diabetes mellitus without complications
CPT/HCPCS: 93005 ×2; 85025; 36415; 84484; 83690; 80053; 74176; 71045; 76705; J2270; J7030; J2405; 96374; 96375; 99284

== ENCOUNTER 2021-08-27 14:34 | Emergency (ER) | payer OTHER ==
--- OUTSIDE RECORDS SUMMARY | 2021-08-27 14:37 | XMS REPORT | Continuity of Care Document ---
:1960 Author Organization [facility] t Address [address] [place] [address] Care Team Providers Name Role Phone Sharpless Primary Care Physician RADHA SIMPSON Attending Clinician Unavailable RADHA SIMPSON Attending Clinician Unavailable Doctor Unassigned, Name Attending Clinician Unavailable RAGHU Attending Clinician Unavailable Gramm BUSINESS PROCESS CONSULTANT, A Attending Clinician Payers Payer Name Policy Type Policy Number Effective Date Expiration Date S flip [facility] STAR [id number] 2017 00:00:00 PLUS Problems This patient has no known problems. Allergies, Adverse Reactions, Alerts Allergy Allergy Status Severity Reaction(s) Onset Inactive Treating Comm ents Source Name Type Date Date Clinician NITRO DRUG Active Other-Cmnt Univer s TRANSDER 07-27 ity of MAL 00:00: [address] [place] ACETAMIN DRUG Active Other-Cmnt 0 Univ ers OPHEN INGREDI 07-27 ity of 00:00: [address] Social History Social Habit Start Date Stop Date Quantity Comments Source Sex Assigned At [facility] Alcohol intake 2016-05-01 2016-05-01 Current [facility] es 00:00:00 00:00:00 non-drinker of Medical Ce nter alcohol (finding) Smoking Status Start Date Stop Date Source Current every day smoker 2016-05-01 00:00:00 [facility] Medications Ordered Filled Start Stop Current Ordering Indication Dosage Frequency Signature Comments Components Source Medication Medication Date Date Medication? Clinician (SIG) Name Name OXcarbazepi Yes 600mg [id number] Take [address] ne 2-23 [id number] mg by [facility] (TRILEPTAL) 10:23: 3D mouth [...] Facility Department ID 2021-06-01 Outpatient [facility] [id number] [place] 01:36:29 [id number] [facility] 2020-08-03 2020-08-03 Outpatient MATT VÁSQUEZ [facility] [id number] Univers 10:00:00 10:00:00 [facility] [id number] 2020-08-03 2020-08-03 Outpatient MATT VÁSQUEZ [facility] [id number] [facility] 10:00:00 10:00:00 [facility] 2020-07-25 2020-07-25 Orders Doctor ABE [id number] 16 00:00:00 00:00:00 Only Unassigned, BK [id number] [place] [facility] [id number] 2019-09-26 2019-09-26 [facility] [id number] Univers 16:00:00 16:00:00 [facility] 2019-09-26 2019-09-26 Outpatient R RAGHU, [facility] [id number] Univers 16:00:00 16:00:00 WALLY [facility] 2018-10-21 2018-10-21 Telephone Nazanin, [facility] [id number] 00:00:00 00:00:00 Natacha Nguyen [id number] Ade [id number] Professio [phone] nal 204 Building Results Test Description Test Time Test Comments Results Result Comments Source TSH, THIRD GENERATION 2021-06-27 05:15:49 Test Item Value Reference Range Interpretation Comme nts TSH, THIRD GENERATION (test code = 2821) 2.080 UIU/ML 0.400-4.100 HEMOGLOBIN [id number] 03:46:00 Test Item Value Reference Range Interpretation Comments HEMOGLOBIN A1c (test 6.6 % 4.2-5.6 H CITIZEN OF [place] DIABETES code = 54273) ASSOCIATION IDELINES FOR HGB A1C: PREDIABETES/INC REASED [...] UNLESS OTHER PEREZ INDICATED, ALL TESTING PERFORMED [facility] PATHOLOGY [facility] [address] [place] [address] MARINE STRUCTURAL DESIGNER: DIANA RUSS M.D. CLIA NUMBER [id number] CAP ACCREDITATION N O. [id number] LIPID [id number] 02:59:52 Test Item Value Reference Range Interpretation [...] MOREINFORMATION , SEE CLIENT ANNOUNCE MENT AT [email or web address] RATIO LDL/HDL 4.02 RATIO <3.22 H (test code = 2238)
== END 2021-08-27 15:00 | disposition left against medical advice (07) ==
LOC: ER 14:34
DX: Z02.9 Encounter for administrative examinations, unspecified (principal)

== ENCOUNTER 2021-08-27 15:39 | Emergency (ER) | payer OTHER ==
--- OUTSIDE RECORDS SUMMARY | 2021-08-27 15:41 | XMS REPORT | Continuity of Care Document ---
:[address] [facility] t Address [address] [place] [address] Care Team Providers Name Role Phone Sharpless Primary Care Physician RADHA SIMPSON Attending Clinician Unavailable RADHA SIMPSON Attending Clinician Unavailable Doctor Unassigned, Name Attending Clinician Unavailable RAGHU Attending Clinician Unavailable Gramm POSTAL MAIL CARRIER, A Attending Clinician Payers Payer Name Policy Type Policy Number Effective Date Expiration Date S flip [facility] STAR [id number] 2017 00:00:00 PLUS Problems This patient has no known problems. Allergies, Adverse Reactions, Alerts Allergy Allergy Status Severity Reaction(s) Onset Inactive Treating Comm ents Source Name Type Date Date Clinician NITRO DRUG Active Other-Cmnt Univer s TRANSDER 07-27 ity of MAL 00:00: [address] [place] ACETAMIN DRUG Active Other-Cmnt 0 Univ ers OPHEN INGREDI 07-27 ity of 00:00: [address] Social History Social Habit Start Date Stop Date Quantity Comments Source Sex Assigned At [facility] Alcohol intake 2016-05-01 2016-05-01 Current [facility] es 00:00:00 00:00:00 non-drinker of Medical Ce nter alcohol (finding) Smoking Status Start Date Stop Date Source Current every day smoker 2016-05-01 00:00:00 [facility] Medications Ordered Filled Start Stop Current Ordering Indication Dosage Frequency Signature Comments Components Source Medication Medication Date Date Medication? Clinician (SIG) Name Name OXcarbazepi Yes 600mg [id number] Take [address] ne 2-23 [id number] mg by [facility] (TRILEPTAL) 10:23: 3D mouth [...] Type Clinicians Facility Department ID 2021-06-01 Outpatient [facility] [id number] [place] 01:36:29 [id number] [facility] 2020-08-03 2020-08-03 Outpatient MATT VÁSQUEZ [facility] [id number] Univers 10:00:00 10:00:00 MATT SIMPSON [id number] [facility] 2020-08-03 2020-08-03 Outpatient MATT VÁSQUEZ [facility] [id number] [facility] 10:00:00 10:00:00 MATT SIMPSON [facility] 2020-07-25 2020-07-25 Orders Doctor ABE [id number] 16 00:00:00 00:00:00 Only Unassigned, BK 350.1.13.10 [place] [facility] [id number] 2019-09-26 2019-09-26 [place] [facility] [id number] Univers 16:00:00 16:00:00 WALLY [facility] 2019-09-26 2019-09-26 Outpatient R RAGHU, [facility] [id number] Univers 16:00:00 16:00:00 WALLY yeager [facility] 2018-10-21 2018-10-21 Telephone Nazanin, [facility] [id number] 00:00:00 00:00:00 Natacha Nguyen [id number] Ade [id number] Professio [phone] nal 204 Building Results Test Description Test Time Test Comments Results Result Comments Source TSH, THIRD GENERATION 2021-06-27 05:15:49 Test Item Value Reference Range Interpretation Comme nts TSH, THIRD GENERATION (test code = 2821) 2.080 UIU/ML 0.400-4.100 HEMOGLOBIN [id number] 03:46:00 Test Item Value Reference Range Interpretation Comments HEMOGLOBIN A1c (test 6.6 % 4.2-5.6 H [place] DIABETES code = 54037) ASSOCIATION IDELINES FOR HGB A1C: PREDIABETES/INC REASED [...] UNLESS OTHER PEREZ INDICATED, ALL TESTING PERFORMED [facility] PATHOLOGY LABOR [facility] [address] [place] [address] CONCRETE ENGINEER: DIANA RUSS M.D. CLIA NUMBER [id number] CAP ACCREDITATION N O. [id number] LIPID [id number] 02:59:52 Test Item Value Reference Range Interpretation [...] MOREINFORMATION , SEE CLIENT ANNOUNCE MENT AT [email or web address] RATIO LDL/HDL 4.02 RATIO <3.22 H (test code = 2238)
[2021-08-27 16:58] LABS: Absolute Lymphocytes (CBC) 2.2 K/uL (0.7-4.9); Lymphocytes % 28.5 % (15.3-44.8); MPV 6.6 fL (7.6-11.3); RBC Red Blood Cell Count 3.95 M/uL (3.86-4.86)
[2021-08-27] MEDS ORDERED: NA CHLORIDE 0.9% 500 ML ONE (16:58)
[2021-08-27] MEDS ORDERED: ONDANSETRON 4 MG/2 ML VIAL ONE (16:58)
[2021-08-27 17:12] LABS: Albumin 3.7 g/dL (3.4-5.0); Bilirubin Total 0.2 mg/dL (0.2-1.0); Potassium 3.9 mmol/L (3.5-5.1); Protein, Total 7.2 g/dL (6.4-8.2)
[2021-08-27] MEDS ORDERED: MAGNES/ALUMIN/SIMET 30ML UCUP ONE (17:15)
[2021-08-27] MEDS ORDERED: LIDOCAINE VISCOUS 2% SOLN 15 ML UDC ONE (17:16)
--- NOTE | 2021-08-27 17:21 | EDPHYS ---
Physician Documentation [facility] Name: Jaimie Amanda Age: 60 yrs Sex: Female : 1960 Arrival Date: 08/27/2021 Time: 15:41 Bed 26 Private MD: COSTA Physician Diego Ramirez HPI: 08/27 16:47 This 60 yrs old Female presents to ER via Ambulatory with complaints of hannah Vomiting. 16:47 This 60 yrs old Female presents to ER via Ambulatory with complaints of hannah Vomiting. 16:47 The patient presents to the emergency department with nausea, vomiting, that is hannah intermittent, abdominal pain, of the right upper quadrant. Onset: The symptoms/episode began/occurred 2 day(s) ago. Possible causes: unknown. The symptoms are aggravated by nothing. The symptoms are alleviated by nothing. Associated signs and symptoms: The patient has no apparent associated signs or symptoms. Severity of symptoms: At their worst the symptoms were mild in the emergency department the symptoms are unchanged. The patient has not experienced similar symptoms in the past. Historical: - Allergies: 15:55 No Known Allergies; vg1 - Home Meds: 15:55 Klonopin Oral [Active]; Clonidine Oral [Active]; levothyroxine oral [Active]; Metformin vg1 Oral [Active]; losartan oral [Active]; - PMHx: 15:55 Anxiety; depressive disorder; diabetes mellitus; Hypertensive disorder; Hypothyroidism; vg1 - Immunization history:: Client reports receiving the 2nd dose of the Covid vaccine. - Social history:: Smoking status: Patient reports the use of cigarette tobacco products, smokes one pack cigarettes per day. ROS: 16:49 Constitutional: Negative for fever, chills, and weight loss, Eyes: Negative for injury, hannah pain, redness, and discharge, ENT: Negative for injury, pain, and discharge, Neck: Negative for injury, pain, and swelling, Cardiovascular: Negative for chest pain, palpitations, and edema, Respiratory: Negative for shortness of breath, cough, wheezing, and pleuritic chest pain, Abdomen/GI: Negative for abdominal pain, nausea, vomiting, diarrhea, and constipation, Back: Negative for injury and pain, : Negative for injury, bleeding, discharge, and swelling, MS/Extremity: Negative for injury and deformity, Skin: Negative for injury, rash, and discoloration, Psych: Negative for depression, anxiety, suicide ideation, homicidal ideation, and hallucinations, Allergy/Immunology: Negative for hives, rash, and allergies, Endocrine: Negative for neck swelling, polydipsia, polyuria, polyphagia, and marked weight changes, Hematologic/Lymphatic: Negative for swollen nodes, abnormal bleeding, and unusual bruising. 16:49 Neuro: Positive for altered mental status, weakness, VAGUE, SODIUM 124 YESTERDAY. Exam: 16:49 Constitutional: This is a well developed, well nourished patient who is awake, alert, hannah and in no acute distress. Head/Face: Normocephalic, atraumatic. Eyes: Pupils equal round and reactive to light, extra-ocular motions intact. Lids and lashes normal. Conjunctiva and sclera are non-icteric and not injected. Cornea within normal limits. Periorbital areas with no swelling, redness, or edema. ENT: Nares patent. No nasal discharge, no septal abnormalities noted. Tympanic membranes are normal and external auditory canals are clear. Oropharynx with no redness, swelling, or masses, exudates, or evidence of obstruction, uvula midline. Mucous membranes moist. Neck: Trachea midline, no thyromegaly or masses palpated, and no cervical lymphadenopathy. Supple, full range of motion without nuchal rigidity, or vertebral point tenderness. No Meningismus. Chest/axilla: Normal chest wall appearance and motion. Nontender with no deformity. No lesions are appreciated. Cardiovascular: Regular rate and rhythm with a normal S1 and S2. No gallops, murmurs, or rubs. Normal PMI, no JVD. No pulse deficits. Respiratory: Lungs have equal breath sounds bilaterally, clear to auscultation and percussion. No rales, rhonchi or wheezes noted. No increased work of breathing, no retractions or nasal flaring. Abdomen/GI: Soft, non-tender, with normal bowel sounds. No distension or tympany. No guarding or rebound. No evidence of tenderness throughout. Back: No spinal tenderness. No costovertebral tenderness. Full range of motion. Female : Normal external genitalia. Skin: Warm, dry with normal turgor. Normal color with no rashes, no lesions, and no evidence of cellulitis. MS/ Extremity: Pulses equal, no cyanosis. Neurovascular intact. Full, normal range of motion. Neuro: Awake and alert, GCS 15, oriented to person, place, time, and situation. Cranial nerves II-XII grossly intact. Motor strength 5/5 in all extremities. Sensory grossly intact. Cerebellar exam normal. Normal gait. Psych: Awake, alert, with orientation to person, place and time. Behavior, mood, and affect are within normal limits. Vital Signs: 15:52 BP 150 / 91; Pulse 80; Resp 16; Temp 98.2; Pulse Ox 95% on R/A; Weight 74.84 kg; Height vg1 5 ft. 7 in. (170.18 cm); Pain 9/10; 16:25 BP 152 / 87; Pulse 73; Resp 18; Pulse Ox 95% on R/A; bh1 17:13 BP 155 / 86; Pulse 76; Resp 18; Temp 98.6(O); Pulse Ox 96% on R/A; bh1 17:30 BP 163 / 88; Pulse 71; Resp 18; Pulse Ox 100% on R/A; bh1 15:52 Body Mass Index 25.84 (74.84 kg, 170.18 cm) vg1 MDM: 16:21 Patient medically screened. hannah 16:51 Differential diagnosis: Nonspecific abd pain, cholecystitis, pancreatitis, hannah appendicitis, diverticulitis, viral gastroenteritis, gastroenteritis. Differential Diagnosis: CVA, electrolyte abnormality, hypoglycemia, UTI. Data reviewed: vital signs, nurses notes, lab test result(s), radiologic studies, CT scan, plain films, ultrasound. Data interpreted: manager hvac: rate is 73 beats/min, rhythm is regular, Pulse oximetry: on room air is 95 %. Interpretation: normal. Test interpretation: by ED physician or midlevel provider:. Counseling: I had a detailed discussion with the patient and/or guardian regarding: the historical points, exam findings, and any diagnostic results supporting the discharge/admit diagnosis, lab results, radiology results. 08/27 16:39 Order name: CBC with Diff; Complete Time: 17:08 [facility] 08/27 16:39 Order name: Comprehensive Metabolic Panel; Complete Time: 17:20 hannah 08/27 16:39 Order name: Lipase; Complete Time: 17:20 [facility] 08/27 16:39 Order name: Seizure Precautions; Complete Time: 16:57 hannah Administered Medications: 16:56 Drug: NS 0.9% 500 ml Route: IV; Rate: bolus; Site: left wrist; 1 17:41 Follow up: IV Status: Completed infusion; IV Intake: 1000ml [facility] 16:57 Drug: Zofran (Ondansetron) 4 mg Route: IVP; Site: left wrist; 1 16:57 Follow up: Response: No adverse reaction [facility] 17:11 Drug: GI Cocktail without - (Maalox Suspension 30 ml, Lidocaine Liquid 2 % 15 bh1 ml) Route: PO; 17:11 Follow up: Response: No adverse reaction 1 Disposition Summary: 08/27/21 17:20 Discharge Ordered Location: Home hannah Problem: new hannah Symptoms: have improved hannah Condition: Stable hannah Diagnosis - Abdominal pain, Generalized hannah - Epigastric abdominal tenderness hannah - Hypo-osmolality and hyponatremia hannah - Other depressive episodes hannah Followup: hannah - With: Private Physician - When: 2 - 3 days - Reason: Recheck today's complaints, Continuance of care, Re-evaluation by your physician Followup: hannah - With: - When: 2 - 3 days - Reason: Recheck today's complaints, Re-evaluation by your physician Followup: hannah - With: - When: 2 - 3 days - Reason: Recheck today's complaints, Continuance of care, Re-evaluation by your physician Discharge Instructions: - Discharge Summary Sheet hannah - Abdominal Pain, Adult hannah - Hypertension, Adult hannah - Hyponatremia hannah - Abdominal Pain, Adult, [id number] hannah - Hypertension, Adult, Oofe-xz-Osxp hannah - Hyponatremia, Coka-xm-Ovww hannah Forms: - Medication Reconciliation Form [facility] - Thank You Letter [facility] - Antibiotic Education [facility] - Prescription Opioid Use [facility] Prescriptions: - Pepcid 20 mg Oral Tablet - take 1 tablet by ORAL route every 12 hours for 10 days; 20 tablet; Refills: 0, [facility] Product Selection Permitted - Zofran 4 mg Oral Tablet - take 1 tablet by ORAL route every 12 hours As needed; 20 tablet; Refills: 0, [facility] Product Selection Permitted Signatures: Dispatcher [employer] EDMS Diego Ramirez MD MD cha Garcia, Victoria, RN RN vg1 Tiffani Berry RN RN bh1 Corrections: (The following items were deleted from the chart) 17:12 16:59 Abdomen With Erect+RAD.RAD.BRZ ordered. EDMS EDMS
--- NOTE | 2021-08-27 17:21 | ER ---
Nurse's Notes [facility] Name: Jaimie Amanda Age: 60 yrs Sex: Female : 1960 Arrival Date: 08/27/2021 Time: 15:41 Bed 26 Private MD: Diagnosis: Abdominal pain, Generalized;Epigastric abdominal tenderness;Hypo-osmolality and hyponatremia;Other depressive episodes Presentation: 08/27 15:52 Chief complaint: Parent and/or Guardian states: confused since this morning and has vg1 been vomiting all day; pt states took 2 clonidine today; pt states RUQ pain. Coronavirus screen: Vaccine status: Patient reports receiving the 2nd dose of the covid vaccine. Client denies travel out of the [place] in the last 14 days. Ebola Screen: Patient denies exposure to infectious person. Patient denies travel to an Ebola-affected area in the 21 days before illness onset. Initial Sepsis Screen: Does the patient meet any 2 criteria? No. Patient's initial sepsis screen is negative. Does the patient have a suspected source of infection? No. Patient's initial sepsis screen is negative. Risk Assessment: Do you want to hurt yourself or someone else? Patient reports no desire to harm self or others. Onset of symptoms was August 27, 2021. 15:52 Method Of Arrival: Ambulatory vg1 15:52 Acuity: ZHEN 3 vg1 Triage Assessment: 15:55 General: Appears in no apparent distress. uncomfortable, Behavior is cooperative. Pain: vg1 Complains of pain in right upper quadrant Pain currently is 9 out of 10 on a pain scale. GI: Reports nausea, vomiting. Historical: - Allergies: 15:55 No Known Allergies; vg1 - Home Meds: 15:55 Klonopin Oral [Active]; Clonidine Oral [Active]; levothyroxine oral [Active]; Metformin vg1 Oral [Active]; losartan oral [Active]; - PMHx: 15:55 Anxiety; depressive disorder; diabetes mellitus; Hypertensive disorder; Hypothyroidism; vg1 - Immunization history:: Client reports receiving the 2nd dose of the Covid vaccine. - Social history:: Smoking status: Patient reports the use of cigarette tobacco products, smokes one pack cigarettes per day. Screenin:25 Abuse screen: Denies threats or abuse. Nutritional screening: No deficits noted[facility] Tuberculosis screening: No symptoms or risk factors identified. Fall Risk None identified. Assessment: 16:21 GI: Abdomen is non-distended. [facility] 16:21 Reassessment: No changes from previously documented assessment. General: Appears in no [facility] apparent distress. Behavior is calm, cooperative, appropriate for age. Vital Signs: 15:52 BP 150 / 91; Pulse 80; Resp 16; Temp 98.2; Pulse Ox 95% on R/A; Weight 74.84 kg; Height vg1 5 ft. 7 in. (170.18 cm); Pain 9/10; 16:25 BP 152 / 87; Pulse 73; Resp 18; Pulse Ox 95% on R/A; bh1 17:13 BP 155 / 86; Pulse 76; Resp 18; Temp 98.6(O); Pulse Ox 96% on R/A; bh1 17:30 BP 163 / 88; Pulse 71; Resp 18; Pulse Ox 100% on R/A; bh1 15:52 Body Mass Index 25.84 (74.84 kg, 170.18 cm) [facility] ED Course: 15:41 Patient arrived in ED. rg4 15:55 Triage completed. 1 15:55 Arm band placed on. 1 16:19 Tiffani Berry, CATY is Primary Nurse. 1 16:21 Diego Ramirez MD is Attending Physician. hannah 16:25 No apparent distress. Awaiting ED provider evaluation. 1 16:25 Patient has correct armband on for positive identification. Bed in low position. Call [facility] light in reach. Adult w/ patient. Pulse ox on. NIBP on. 16:25 No provider procedures requiring assistance completed. 1 16:50 Lipase Sent. 1 16:50 Comprehensive Metabolic Panel Sent. 1 16:50 CBC with Diff Sent. 1 17:13 No apparent distress. Awaiting lab results. 1 17:20 Denver Duarte MD is Referral Physician. hannah 17:20 Nataliia Flores MD is Referral Physician. hannah 17:28 No apparent distress. Awaiting: IVF INFUSION. 1 17:40 IV discontinued, intact, bleeding controlled. [facility] Administered Medications: 16:56 Drug: NS 0.9% 500 ml Route: IV; Rate: bolus; Site: left wrist; [facility] 17:41 Follow up: IV Status: Completed infusion; IV Intake: 1000ml [facility] 16:57 Drug: Zofran (Ondansetron) 4 mg Route: IVP; Site: left wrist; [facility] 16:57 Follow up: Response: No adverse reaction [facility] 17:11 Drug: GI Cocktail without - (Maalox Suspension 30 ml, Lidocaine Liquid 2 % 15 bh1 ml) Route: PO; 17:11 Follow up: Response: No adverse reaction [facility] Medication: 16:25 VIS not applicable for this client. [facility] Intake: 17:41 IV: 1000ml; Total: 1000ml. [facility] Outcome: 17:20 Discharge ordered by . hannah 17:40 Discharged to home ambulatory. [facility] 17:40 Condition: good 17:40 Discharge instructions given to patient, Instructed on discharge instructions, follow up and referral plans. medication usage, Demonstrated understanding of instructions, follow-up care, medications, Prescriptions given X 2. 17:42 Patient left the ED. [facility] Signatures: Diego Ramirez MD MD cha Garcia, Rubi rg4 Geneva Ramirez RN RN 1 Tiffani Berry RN RN 1 Corrections: (The following items were deleted from the chart) 15:57 15:52 Chief complaint: Parent and/or Guardian states: confused since this morning and vg1 has been vomiting all day; pt states took 2 clonidine today vg1
[2021-08-27 17:57] VITALS: TEMP 98.6
[2021-08-27 17:59] VITALS: BP 163/88; O2SAT 100
== END 2021-08-27 17:42 | disposition home or self-care (01) ==
LOC: ER 15:39
DX: E87.1 Hypo-osmolality and hyponatremia (principal); R10.84 Generalized abdominal pain; F32.89 Other specified depressive episodes; E11.9 Type 2 diabetes mellitus without complications; I10 Essential (primary) hypertension; F17.210 Nicotine dependence, cigarettes, uncomplicated
CPT/HCPCS: 85025; 36415; 83690; 80053; J7040; J2405

== ENCOUNTER 2021-09-03 11:05 | Emergency (ER) | payer OTHER ==
--- OUTSIDE RECORDS SUMMARY | 2021-09-03 11:08 | XMS REPORT | Continuity of Care Document ---
:1960 Author Organization [facility] t Address [address] [place] [address] Care Team Providers Name Role Phone Sharpless Primary Care Physician RADHA SIMPSON Attending Clinician Unavailable RADHA SIMPSON Attending Clinician Unavailable Doctor Unassigned, Name Attending Clinician Unavailable RAGHU Attending Clinician Unavailable Gramm CERTIFIED PROFESSIONAL CONTROLLER, A Attending Clinician Payers Payer Name Policy Type Policy Number Effective Date Expiration Date S flip [facility] [id number] 2017 00:00:00 PLUS Problems This patient has no known problems. Allergies, Adverse Reactions, Alerts Allergy Allergy Status Severity Reaction(s) Onset Inactive Treating Comm ents Source Name Type Date Date Clinician NITRO DRUG Active Other-Cmnt 0 Univer s TRANSDER 07-27 ity of MAL 00:00: [address] [place] ACETAMIN DRUG Active Other-Cmnt 0 Univ ers OPHEN INGREDI - ity of 00:00: [address] Social History Social Habit Start Date Stop Date Quantity Comments Source Sex Assigned At [facility] Alcohol intake 2016-05-01 2016-05-01 Current [facility] es 00:00:00 00:00:00 non-drinker of Medical Ce nter alcohol (finding) Smoking Status Start Date Stop Date Source Current every day smoker 2016-05-01 00:00:00 [facility] Medications Ordered Filled Start Stop Current Ordering Indication Dosage Frequency Signature Comments Components Source Medication Medication Date Date Medication? Clinician (SIG) Name Name OXcarbazepi Yes 600mg [id number] Take [address] ne 2-23 [id number] mg by [facility] (TRILEPTAL) 10:23: 3D mouth [...] Clinicians Facility Department ID 2021-06-01 Outpatient [facility] [id number] [place] 01:36:29 [id number] [facility] 2020-08-03 2020-08-03 Outpatient MATT VÁSQUEZ [facility] [id number] Univers 10:00:00 10:00:00 MATT SIMPSON [id number] [facility] 2020-08-03 2020-08-03 Outpatient MATT VÁSQUEZ [facility] [id number] [facility] 10:00:00 10:00:00 MATT SIMPSON [facility] 2020-07-25 2020-07-25 Orders Doctor ABE [id number] 00:00:00 00:00:00 Only Unassigned, BK [id number] [place] [facility] [id number] 2019-09-26 2019-09-26 [facility]patient [facility] [id number] Univers 16:00:00 16:00:00 WALLY [facility] 2019-09-26 2019-09-26 Outpatient R RAGHU, [facility] [id number] Univers 16:00:00 16:00:00 WALLY [facility]ager [facility] 2018-10-21 2018-10-21 Telephone Nazanin, [facility] [id number] 00:00:00 00:00:00 Natacha Nguyen [id number] Ade [id number] Professio [id number] nal 204 Building Results Test Description Test Time Test Comments Results Result Comments Source TSH, THIRD GENERATION 2021-06-27 05:15:49 Test Item Value Reference Range Interpretation Comme nts TSH, THIRD GENERATION (test code = 2821) 2.080 UIU/ML 0.400-4.100 HEMOGLOBIN [id number] 03:46:00 Test Item Value Reference Range Interpretation Comments HEMOGLOBIN A1c (test 6.6 % 4.2-5.6 H [facility] code = 99620) ASSOCIATION IDELINES FOR HGB A1C: PREDIABETES/INC REASED [...] UNLESS OTHER PEREZ INDICATED, ALL TESTING PERFORMED [facility] [address] [place] [address] FABRIC NORMALIZER: DIANA RUSS M.D. CLIA NUMBER [id number] CAP ACCREDITATION N O. [id number] LIPID [id number] 02:59:52 Test Item Value Reference Range Interpretation [...] MOREINFORMATION , SEE CLIENT ANNOUNCE MENT AT [email or web address] LDL/HDL 4.02 RATIO <3.22 H (test code = 2238)
--- NOTE | 2021-09-03 12:01 | ER ---
Nurse's Notes [facility] Name: Jaimie Amanda Age: 60 yrs Sex: Female : 1960 Arrival Date: 09/03/2021 Time: 11:07 Bed Waiting Private MD: Diagnosis: Assessment: 09/03 11:30 Reassessment: called to triage. Unable to locate patient. Registration staff states ss they saw patient leave the building for reasons unknown. Steady gait. No apparent distress. ED Course: 11:07 Patient arrived in ED. mr Administered Medications: No medications were administered Outcome: 12:00 Patient left the ED. ss Signatures: Radha Messina Shelby, RN RN ss
== END 2021-09-03 12:00 | disposition left against medical advice (07) ==
LOC: ER 11:05
DX: Z02.9 Encounter for administrative examinations, unspecified (principal)

== ENCOUNTER 2021-09-06 10:18 | Emergency (ER) | payer OTHER ==
[2021-09-06] MEDS ORDERED: NA CHLORIDE 0.9% 1,000 ML ONE (11:43)
[2021-09-06] MEDS ORDERED: ONDANSETRON 4 MG/2 ML VIAL ONE (11:43)
[2021-09-06] MEDS ORDERED: FAMOTIDINE 20 MG/2 ML VIAL IV ONE (11:43)
[2021-09-06] MEDS ORDERED: KETOROLAC 30 MG/ML INJ ONE (11:43)
[2021-09-06 12:10] LABS: Absolute Lymphocytes (CBC) 1.8 K/uL (0.7-4.9); Hematocrit 41.9 % (36.0-45.0); Lymphocytes % 23.2 % (15.3-44.8); MCV 92.6 fL (80-100); RBC Red Blood Cell Count 4.53 M/uL (3.86-4.86)
[2021-09-06 12:13] LABS: Potassium 3.7 mmol/L (3.5-5.1); Troponin High Sensitivity 8.9 pg/mL (<58.9)
--- NOTE | 2021-09-06 12:30 | RAD REPORT ---
EXAM DESCRIPTION: US - Abdomen Exam Limited - 09/06/2021 12:06 pm CLINICAL HISTORY: ABD PAIN COMPARISON: Abdomen Pelvis Wo Contrast dated 08/26/2021 FINDINGS: The gallbladder demonstrates no gallstones. No pericholecystic fluid or gallbladder wall t hickening. The common bile duct is normal measuring 4 mm. The liver demonstrates no findings of intrahepatic biliary dilatation. IMPRESSION: Unremarkable examination.
--- NOTE | 2021-09-06 12:59 | EDPHYS ---
Physician Documentation [facility] Name: Jaimie Amanda Age: 60 yrs Sex: Female : 1960 Arrival Date: 09/06/2021 Time: 10:20 Bed 2 Private MD: ED Physician Tera Raymond HPI: 09/06 11:25 This 60 yrs old Female presents to ER via Ambulatory with complaints of Dizziness, kdr Shortness Of Breath. 11:25 This 60 yrs old Female presents to ER via Ambulatory with complaints of Right upper kdr quadrant abdominal pain. 11:26 Patient complains of abdominal pain is been going on for about 2 weeks. She has had kdr shortness of breath as well as decreased appetite. She denies any chest pain.. Onset: The symptoms/episode began/occurred gradually, 2 week(s) ago. Severity of symptoms: At their worst the symptoms were mild moderate just prior to arrival, in the emergency department the symptoms are unchanged. The patient has experienced similar episodes in the past, multiple times. The patient has not recently seen a physician. Historical: - Allergies: 10:50 No Known Allergies; vg1 - Home Meds: 10:50 Clonidine Oral [Active]; Klonopin Oral [Active]; levothyroxine oral [Active]; losartan vg1 Oral [Active]; Metformin Oral [Active]; - PMHx: 10:50 Hypothyroidism; Hypertensive disorder; diabetes mellitus; depressive disorder; Anxiety; vg1 - PSHx: 10:50 Thyroidectomy; vg1 - Immunization history:: Client reports receiving the 2nd dose of the Covid vaccine. - Social history:: Smoking status: Patient reports the use of cigarette tobacco products, smokes one pack cigarettes per day. ROS: 11:26 Constitutional: Negative for fever, chills, and weight loss, Eyes: Negative for injury, kdr pain, redness, and discharge, ENT: Negative for injury, pain, and discharge, Neck: Negative for injury, pain, and swelling, Cardiovascular: Negative for chest pain, palpitations, and edema, Respiratory: Negative for shortness of breath, cough, wheezing, and pleuritic chest pain, Back: Negative for injury and pain, : Negative for injury, bleeding, discharge, and swelling, MS/Extremity: Negative for injury and deformity, Skin: Negative for injury, rash, and discoloration, Neuro: Negative for headache, weakness, numbness, tingling, and seizure activity. Psych: Negative for depression, anxiety, suicide ideation, homicidal ideation, and hallucinations, Allergy/Immunology: Negative for hives, rash, and allergies, Endocrine: Negative for neck swelling, polydipsia, polyuria, polyphagia, and marked weight changes, Hematologic/Lymphatic: Negative for swollen nodes, abnormal bleeding, and unusual bruising. 11:26 Abdomen/GI: Positive for abdominal pain, nausea and vomiting, Negative for diarrhea, constipation, black/tarry stool, rectal pain, rectal bleeding. Exam: 11:26 Constitutional: This is a well developed, well nourished patient who is awake, alert, kdr and in no acute distress. Head/Face: Normocephalic, atraumatic. Eyes: Pupils equal round and reactive to light, extra-ocular motions intact. Lids and lashes normal. Conjunctiva and sclera are non-icteric and not injected. Cornea within normal limits. Periorbital areas with no swelling, redness, or edema. Neck: Trachea midline, no thyromegaly or masses palpated, and no cervical lymphadenopathy. Supple, full range of motion without nuchal rigidity, or vertebral point tenderness. No Meningismus. Chest/axilla: Normal chest wall appearance and motion. Nontender with no deformity. No lesions are appreciated. Cardiovascular: Regular rate and rhythm with a normal S1 and S2. No gallops, murmurs, or rubs. Normal PMI, no JVD. No pulse deficits. Respiratory: Lungs have equal breath sounds bilaterally, clear to auscultation and percussion. No rales, rhonchi or wheezes noted. No increased work of breathing, no retractions or nasal flaring. Back: No spinal tenderness. No costovertebral tenderness. Full range of motion. Skin: Warm, dry with normal turgor. Normal color with no rashes, no lesions, and no evidence of cellulitis. MS/ Extremity: Pulses equal, no cyanosis. Neurovascular intact. Full, normal range of motion. Neuro: Awake and alert, GCS 15, oriented to person, place, time, and situation. Cranial nerves II-XII grossly intact. Motor strength 5/5 in all extremities. Sensory grossly intact. Cerebellar exam normal. Normal gait. Psych: Awake, alert, with orientation to person, place and time. Behavior, mood, and affect are within normal limits. 11:26 Abdomen/GI: Inspection: abdomen appears normal, Bowel sounds: active, all quadrants, diminished, Palpation: soft, mild abdominal tenderness, in the right upper quadrant, rebound tenderness, is not appreciated, Indicators: McBurney's point is not tender, Marrero's sign is positive. 11:34 ECG was reviewed by the Attending Physician. kdr Vital Signs: 10:47 BP 110 / 81; Pulse 101; Resp 16; Temp 97.6; Pulse Ox 96% on R/A; Weight 74.84 kg; vg1 Height 5 ft. 7 in. (170.18 cm); Pain 8/10; 12:03 BP 130 / 76; Pulse 89; Resp 18; Pulse Ox 96% on R/A; ph 13:00 BP 140 / 78; Pulse 91; Resp 16; Pulse Ox 96% on R/A; ph 13:54 BP 128 / 78; Pulse 89; Resp 18; Temp 97.4; Pulse Ox 98% on R/A; ph 10:47 Body Mass Index 25.84 (74.84 kg, 170.18 cm) vg1 MDM: 11:26 Data reviewed: vital signs, nurses notes, lab test result(s), radiologic studies. kdr Counseling: I had a detailed discussion with the patient and/or guardian regarding: the historical points, exam findings, and any diagnostic results supporting the discharge/admit diagnosis, lab results, radiology results. 12:59 Patient medically screened. [facility] 09/06 10:26 Order name: Basic Metabolic Panel; Complete Time: 12:57 [facility] 09/06 10:26 Order name: CBC with Diff; Complete Time: 12:57 [facility] 09/06 10:26 Order name: Troponin HS; Complete Time: 12:57 [facility] 09/06 11:32 Order name: US Abdomen Limited; Complete Time: 12:57 [facility] 09/06 10:26 Order name: EKG; Complete Time: 10:26 kdr 09/06 10:26 Order name: Cardiac monitoring; Complete Time: 11:34 kdr 09/06 10:26 Order name: EKG - Nurse/Tech; Complete Time: 11:35 kdr 09/06 10:26 Order name: IV Saline Lock; Complete Time: 11:35 kdr 09/06 10:26 Order name: Labs collected and sent; Complete Time: 11:35 kdr 09/06 10:26 Order name: O2 Per Protocol; Complete Time: kdr 09/06 10:26 Order name: O2 Sat Monitoring; Complete Time: : kdr EC:34 Rate is 87 beats/min. Rhythm is regular, Normal Sinus Rhythm with No ectopy. QRS [place] kdr is Normal. [place] interval is normal. QRS interval is normal. QT interval is normal. Clinical impression: Normal ECG. Administered Medications: 11:43 Drug: NS 0.9% 1000 ml Route: IV; Rate: 1 bolus; Site: right antecubital; ph 19:15 Follow up: Response: No adverse reaction; IV Status: IV infiltrated ph 11:44 Drug: Zofran (Ondansetron) 4 mg Route: IVP; Site: right antecubital; ph 12:03 Follow up: Response: No adverse reaction ph 11:46 Drug: Ketorolac 15 mg Route: IVP; Site: right antecubital; ph 12:03 Follow up: Response: No adverse reaction ph 11:46 Drug: Pepcid (famotidine) 20 mg Route: IVP; Site: right antecubital; ph 12:00 Follow up: Response: No adverse reaction ph 12:03 Follow up: Response: No adverse reaction ph 13:15 Drug: [place] (HYDROcodone-acetaminophen) (7.5 mg-325 mg) 1 tabs Route: PO; ph 13:30 Follow up: Response: No adverse reaction ph Disposition Summary: 09/06/21 12:59 Discharge Ordered Location: Home kdr Problem: new kdr Symptoms: have improved kdr Condition: Stable kdr Diagnosis - Upper abdominal pain, unspecified - RUQ kdr Followup: kdr - With: Private Physician - When: As needed - Reason: If symptoms return, Further diagnostic work-up, Recheck today's complaints, Continuance of care, Re-evaluation by your physician Discharge Instructions: - Discharge Summary Sheet kdr - Abdominal Pain, Adult, [id number] kdr Forms: - Medication Reconciliation Form kdr - Thank You Letter kdr Prescriptions: - Zofran 4 mg Oral Tablet - take 1 tablet by ORAL route every 12 hours As needed; 6 tablet; Refills: 0, kdr Product Selection Permitted - Tramadol 50 mg Oral Tablet - take 1 tablet by ORAL route every 8 hours as needed; 12 tablet; Refills: 0, kdr Product Selection Permitted - Pepcid 20 mg Oral Tablet - take 1 tablet by ORAL route once daily; 20 tablet; Refills: 0, Product kdr Selection Permitted Signatures: Dispatcher [employer] Tera Calderon MD MD kdr Hall, Patricia, RN RN ph James, Geneva, RN RN vg1 Corrections: (The following items were deleted from the chart) 10:47 10:26 Chest Single View+[email or web address] ordered. [facility] ED
--- NOTE | 2021-09-06 12:59 | ER ---
Nurse's Notes [facility] Name: Jaimie Amanda Age: 60 yrs Sex: Female : 1960 Arrival Date: 09/06/2021 Time: 10:20 Bed 2 Private MD: Diagnosis: Upper abdominal pain, unspecified-RUQ Presentation: 09/06 10:47 Chief complaint: Patient states: NV and dizziness and ABD pain x 2 weeks, decrease vg1 appetite and SOB that began yesterday. Denies chest pain. Coronavirus screen: Vaccine status: Patient reports receiving the 2nd dose of the covid vaccine. Client denies travel out of the [place] in the last 14 days. Ebola Screen: Patient denies exposure to infectious person. Patient denies travel to an Ebola-affected area in the 21 days before illness onset. Initial Sepsis Screen: Does the patient meet any 2 criteria? HR > 90 bpm. Does the patient have a suspected source of infection? No. Patient's initial sepsis screen is negative. Risk Assessment: Do you want to hurt yourself or someone else? Patient reports no desire to harm self or others. Onset of symptoms was August 23, 2021. 10:47 Method Of Arrival: Ambulatory vg1 10:47 Acuity: ZHEN 3 vg1 Triage Assessment: 10:50 General: Appears uncomfortable, Behavior is calm, cooperative. Pain: Complains of pain vg1 in right upper quadrant and left upper quadrant Pain currently is 8 out of 10 on a pain scale. Respiratory: Reports shortness of breath Onset: The symptoms/episode began/occurred this morning, the patient has mild shortness of breath. GI: Reports upper abdominal pain, nausea, vomiting. Historical: - Allergies: 10:50 No Known Allergies; vg1 - Home Meds: 10:50 Clonidine Oral [Active]; Klonopin Oral [Active]; levothyroxine oral [Active]; losartan vg1 Oral [Active]; Metformin Oral [Active]; - PMHx: 10:50 Hypothyroidism; Hypertensive disorder; diabetes mellitus; depressive disorder; Anxiety; vg1 - PSHx: 10:50 Thyroidectomy; vg1 - Immunization history:: Client reports receiving the 2nd dose of the Covid vaccine. - Social history:: Smoking status: Patient reports the use of cigarette tobacco products, smokes one pack cigarettes per day. Screenin:02 Abuse screen: Denies threats or abuse. Denies injuries from another. Nutritional ph screening: No deficits noted. Tuberculosis screening: No symptoms or risk factors identified. Fall Risk None identified. Assessment: 11:25 General: Appears in no apparent distress. comfortable, well groomed, Behavior is calm, ph cooperative, appropriate for age, Denies fever, chills. Pain: Complains of pain in left upper quadrant and right upper quadrant. Neuro: Level of Consciousness is awake, alert, obeys commands, Oriented to person, place, time, situation. Cardiovascular: Reports lightheadedness, nausea, shortness of breath, vomiting, Capillary refill < 3 seconds in bilateral fingers Patient's skin is warm and dry. Rhythm is regular. Respiratory: Reports shortness of breath Airway is patent Respiratory effort is even, unlabored, Respiratory pattern is regular, symmetrical. GI: Reports upper abdominal pain, nausea, vomiting. : No signs and/or symptoms were reported regarding the genitourinary system. Derm: Skin is intact, Skin is pink, warm \T\ dry. Musculoskeletal: Circulation, motion, and sensation intact. Range of motion: intact in all extremities. 11:47 Reassessment: Pt taken to radiology for US. ph 13:16 Reassessment: Patient appears in no apparent distress at this time. Patient and/or ph family updated on plan of care and expected duration. Pain level reassessed. Patient is alert, oriented x 3, equal unlabored respirations, skin warm/dry/pink. D/C pending completion of IV fluids, IV found to be infiltrated, will attempt to start another so pt may receive fluid bolus. 13:53 Reassessment: Ateempted another IV, after 2 missed attempts d/t infiltration pt states ph that she wants to go home, pt encouraged to drink fluids w/ electrolytes when she returns home. Vital Signs: 10:47 BP 110 / 81; Pulse 101; Resp 16; Temp 97.6; Pulse Ox 96% on R/A; Weight 74.84 kg; vg1 Height 5 ft. 7 in. (170.18 cm); Pain 8/10; 12:03 BP 130 / 76; Pulse 89; Resp 18; Pulse Ox 96% on R/A; ph 13:00 BP 140 / 78; Pulse 91; Resp 16; Pulse Ox 96% on R/A; ph 13:54 BP 128 / 78; Pulse 89; Resp 18; Temp 97.4; Pulse Ox 98% on R/A; ph 10:47 Body Mass Index 25.84 (74.84 kg, 170.18 cm) vg1 ED Course: 10:20 Patient arrived in ED. rg4 10:25 Tera Raymond MD is Attending Physician. kdr 10:50 Triage completed. vg1 10:50 Arm band placed on. vg1 10:53 Shruthi Donohue RN is Primary Nurse. ph 11:30 Initial lab(s) drawn, by me, sent to lab. Inserted saline lock: 22 gauge in right ph antecubital area, using aseptic technique. Blood collected. 12:02 Patient has correct armband on for positive identification. Bed in low position. Call ph light in reach. Side rails up X 1. Client placed on continuous cardiac and pulse oximetry monitoring. NIBP monitoring applied. Door closed. Noise minimized. 12:07 US Abdomen Limited In Process Unspecified. EDMS 13:44 Missed attempt(s): 22 gauge in left antecubital area. Bleeding controlled, band aid dh3 applied, catheter tip intact. 13:55 No provider procedures requiring assistance completed. IV discontinued, intact, ph bleeding controlled, No redness/swelling at site. Pressure dressing applied. Administered Medications: 11:43 Drug: NS 0.9% 1000 ml Route: IV; Rate: 1 bolus; Site: right antecubital; ph 19:15 Follow up: Response: No adverse reaction; IV Status: IV infiltrated ph 11:44 Drug: Zofran (Ondansetron) 4 mg Route: IVP; Site: right antecubital; ph 12:03 Follow up: Response: No adverse reaction ph 11:46 Drug: Ketorolac 15 mg Route: IVP; Site: right antecubital; ph 12:03 Follow up: Response: No adverse reaction ph 11:46 Drug: Pepcid (famotidine) 20 mg Route: IVP; Site: right antecubital; ph 12:00 Follow up: Response: No adverse reaction ph 12:03 Follow up: Response: No adverse reaction ph 13:15 Drug: [place] (HYDROcodone-acetaminophen) (7.5 mg-325 mg) 1 tabs Route: PO; ph 13:30 Follow up: Response: No adverse reaction ph Medication: 12:02 VIS not applicable for this client. ph Outcome: 12:59 Discharge ordered by . kdr 13:55 Discharged to home ambulatory, with family. ph 13:55 Condition: good 13:55 Discharge instructions given to patient, family, Instructed on discharge instructions, follow up and referral plans. medication usage, Demonstrated understanding of instructions, follow-up care, medications, Prescriptions given X 3. 13:55 Patient left the ED. ph Signatures: Dispatcher [employer] EDMS Tera Raymond MD MD kdr Hall, Patricia, RN RN ph Alejandra Ramirez 4 Cass Gray 3 Geneva Ramirez, RN RN vg1
[2021-09-06] MEDS ORDERED: HYDROCODONE/APAP 7.5/325 MG TAB ONE (13:18)
[2021-09-06 14:29] VITALS: BP 128/78; TEMP 97.4; O2SAT 98
--- NOTE | 2021-09-10 08:06 | EKG ---
Test Date: 2021-09-06 Test Time: 11:23:03 Yarn Sorter: MABLE MEASUREMENT RESULTS: Intervals: Rate: 87 PA: 152 QRSD: 78 QT: 368 QTc: 442 [place]: P: 63 PA: 152 QRS: 73 T: 72 INTERPRETIVE STATEMENTS: Normal sinus rhythm Normal ECG Compared to ECG 08/26/2021 08:31:42 Right-axis deviation no longer present Electronically Signed On 09-10-21 07:56:35 CDT by Daniel Cespedes
== END 2021-09-06 13:55 | disposition home or self-care (01) ==
LOC: ER 10:18
DX: R10.11 Right upper quadrant pain (principal); R11.2 Nausea with vomiting, unspecified; E11.9 Type 2 diabetes mellitus without complications; I10 Essential (primary) hypertension; E03.9 Hypothyroidism, unspecified; F17.210 Nicotine dependence, cigarettes, uncomplicated
CPT/HCPCS: 96361; 85025; 80048; 36415; 84484; 76705; 96375; 96374; 99284; J7030; J2405; J3490; 93005

== ENCOUNTER 2021-09-20 07:24 | Emergency (ER) | payer OTHER ==
[2021-09-20] MEDS ORDERED: ONDANSETRON 4 MG/2 ML VIAL ONE ×2 (08:50→10:32)
[2021-09-20] MEDS ORDERED: cloNIDine HCL 0.1 MG TAB ONE ×2 (09:00→11:11)
[2021-09-20] MEDS ORDERED: AMLODIPINE 10 MG TAB ONE (09:00)
[2021-09-20 09:09] LABS: Urine Blood Negative (Negative); Urine Glucose Negative (Negative); Urine Protein Negative (Negative)
[2021-09-20 09:11] LABS: Hematocrit 39.7 % (36.0-45.0); Lymphocytes % 28.7 % (15.3-44.8); MCV 91.5 fL (80-100); MPV 7.1 fL (7.6-11.3); RBC Red Blood Cell Count 4.34 M/uL (3.86-4.86)
[2021-09-20] MEDS ORDERED: NA CHLORIDE 0.9% 1,000 ML ONE (09:18)
[2021-09-20] MEDS ORDERED: MORPHINE 4 MG/ML SYR ONE (09:34)
[2021-09-20 09:43] LABS: ALT/SGPT 58 U/L (12-78); AST/SGOT 19 U/L (15-37); Albumin 3.8 g/dL (3.4-5.0); Alkaline Phosphatase 115 U/L (45-117); BUN Blood Urea Nitrogen 9 mg/dL (7-18); Bicarbonate 26 mmol/L (21-32); Bilirubin Total 0.2 mg/dL (0.2-1.0); Glomerular Filtration Rate 100 ml/min (=/>90); Glucose Level 102 mg/dL (74-106); Lipase 51 U/L (73-393); Magnesium 1.7 mg/dL (1.8-2.4); NT PRO-BNP 195 pg/mL (<125); Potassium 4.1 mmol/L (3.5-5.1); Protein, Total 7.6 g/dL (6.4-8.2); Sodium Level 130 mmol/L (136-145)
[2021-09-20 09:48] LABS: Bilirubin Direct < 0.1 mg/dL (0-0.2)
[2021-09-20 10:20] LABS: Protime INR 0.96
[2021-09-20] MEDS ORDERED: Magnesium Sulfate 2gm IVPB 2 G/50 ML BAG IV ONE (10:31)
--- NOTE | 2021-09-20 10:55 | EDPHYS ---
Physician Documentation [facility] Name: Jaimie Amanda Age: 60 yrs Sex: Female : 1960 Arrival Date: 09/20/2021 Time: 07:26 Bed 6 Private MD: COSTA Physician Diego Ramirez HPI: 09/20 10:25 This 60 yrs old Female presents to ER via Ambulatory with complaints of hannah Abdominal Pain. 10:25 The patient presents with abdominal pain in the upper abdomen, in the right upper hannah quadrant, abdominal distention in the upper abdomen, in the lower abdomen. Onset: The symptoms/episode began/occurred this morning, today. The symptoms do not radiate. Associated signs and symptoms: Pertinent positives: nausea and vomiting. The symptoms are described as crampy. Modifying factors: The symptoms are alleviated by nothing, the symptoms are aggravated by nothing. Severity of pain: At its worst the pain was moderate in the emergency department the pain is unchanged. The patient has experienced similar episodes in the past, several times. Historical: - Allergies: 07:34 No Known Allergies; iw - Home Meds: 07:34 Clonidine Oral [Active]; Klonopin Oral [Active]; levothyroxine oral [Active]; Metformin iw Oral [Active]; 10:40 losartan Oral [Active]; jg9 - PMHx: 07:34 Anxiety; depressive disorder; diabetes mellitus; Hypertensive disorder; Hypothyroidism; iw - PSHx: 07:34 Thyroidectomy; iw - Immunization history:: Client reports receiving the 2nd dose of the Covid vaccine. - Social history:: Smoking status: Patient reports the use of cigarette tobacco products. - Family history:: not pertinent. ROS: 10:25 Constitutional: Negative for fever, chills, and weight loss, Eyes: Negative for injury, hannah pain, redness, and discharge, ENT: Negative for injury, pain, and discharge, Neck: Negative for injury, pain, and swelling, Cardiovascular: Negative for chest pain, palpitations, and edema, Respiratory: Negative for shortness of breath, cough, wheezing, and pleuritic chest pain, Back: Negative for injury and pain, : Negative for injury, bleeding, discharge, and swelling, MS/Extremity: Negative for injury and deformity, Skin: Negative for injury, rash, and discoloration, Neuro: Negative for headache, weakness, numbness, tingling, and seizure, Psych: Negative for depression, anxiety, suicide ideation, homicidal ideation, and hallucinations, Allergy/Immunology: Negative for hives, rash, and allergies, Endocrine: Negative for neck swelling, polydipsia, polyuria, polyphagia, and marked weight changes, Hematologic/Lymphatic: Negative for swollen nodes, abnormal bleeding, and unusual bruising. 10:25 Abdomen/GI: Positive for abdominal pain, nausea and vomiting, abdominal distension, of the right upper quadrant, left upper quadrant, right lower quadrant and left lower quadrant. Exam: 10:25 Constitutional: This is a well developed, well nourished patient who is awake, alert, hannah and in no acute distress. Head/Face: Normocephalic, atraumatic. Eyes: Pupils equal round and reactive to light, extra-ocular motions intact. Lids and lashes normal. Conjunctiva and sclera are non-icteric and not injected. Cornea within normal limits. Periorbital areas with no swelling, redness, or edema. ENT: Nares patent. No nasal discharge, no septal abnormalities noted. Tympanic membranes are normal and external auditory canals are clear. Oropharynx with no redness, swelling, or masses, exudates, or evidence of obstruction, uvula midline. Mucous membranes moist. Neck: Trachea midline, no thyromegaly or masses palpated, and no cervical lymphadenopathy. Supple, full range of motion without nuchal rigidity, or vertebral point tenderness. No Meningismus. Chest/axilla: Normal chest wall appearance and motion. Nontender with no deformity. No lesions are appreciated. Cardiovascular: Regular rate and rhythm with a normal S1 and S2. No gallops, murmurs, or rubs. Normal PMI, no JVD. No pulse deficits. Respiratory: Lungs have equal breath sounds bilaterally, clear to auscultation and percussion. No rales, rhonchi or wheezes noted. No increased work of breathing, no retractions or nasal flaring. Back: No spinal tenderness. No costovertebral tenderness. Full range of motion. Female : Normal external genitalia. Skin: Warm, dry with normal turgor. Normal color with no rashes, no lesions, and no evidence of cellulitis. MS/ Extremity: Pulses equal, no cyanosis. Neurovascular intact. Full, normal range of motion. Neuro: Awake and alert, GCS 15, oriented to person, place, time, and situation. Cranial nerves II-XII grossly intact. Motor strength 5/5 in all extremities. Sensory grossly intact. Cerebellar exam normal. Normal gait. Psych: Awake, alert, with orientation to person, place and time. Behavior, mood, and affect are within normal limits. 10:25 ECG was reviewed by the Attending Physician. 10:25 Abdomen/GI: Inspection: distension, that is mild, Bowel sounds: hyperactive, Palpation: mild abdominal tenderness, in all quadrants, Liver: no appreciated palpable abnormalities, Hernia: not appreciated. Vital Signs: 07:33 BP 168 / 99; Pulse 76; Resp 16; Temp 97.6; Pulse Ox 95% on R/A; Weight 72.57 kg; Height iw 5 ft. 7 in. (170.18 cm); Pain 9/10; 08:00 BP 190 / 101; Pulse 67; Resp 17 S; Pulse Ox 98% on R/A; jg9 08:30 BP 198 / 101; Pulse 65; Resp 17; Pulse Ox 98% ; Pain 9/10; jg9 09:00 BP 204 / 93; Pulse 64; Resp 17 S; Pulse Ox 98% on R/A; Pain 9/10; jg9 09:30 BP 201 / 91; Pulse 63; Resp 17 S; Pulse Ox 97% ; Pain 9/10; jg9 10:45 BP 218 / 98; Pulse 64; Resp 18 S; Pulse Ox 96% on R/A; jg9 11:00 BP 217 / 110; Pulse 66; Resp 20 S; Pulse Ox 95% on R/A; jg9 11:25 BP 195 / 71; Pulse 66; Resp 17 S; Pulse Ox 93% on R/A; jg9 07:33 Body Mass Index 25.06 (72.57 kg, 170.18 cm) iw MDM: 07:52 Patient medically screened. hannah 10:30 Differential diagnosis: bowel obstruction, Cholelithiasis, diverticulitis, gastritis, hannah gastroesophageal reflux disease, Irritable bowel syndrome, non-specific abd pain, pancreatitis, Peptic Ulcer Disease, Pyelonephritis, urinary tract infection. Data reviewed: vital signs, nurses notes, lab test result(s), EKG, radiologic studies, plain films. Data interpreted: sql database developer: rate is 63 beats/min, rhythm is regular, Pulse oximetry: on room air is 97 %. Test interpretation: by ED physician or midlevel provider: ECG, plain radiologic studies. Counseling: I had a detailed discussion with the patient and/or guardian regarding: the historical points, exam findings, and any diagnostic results supporting the discharge/admit diagnosis, lab results, radiology results, the need for outpatient follow up, for definitive care, a scanning coordinator, an peoplesoft hcm developer. 09/20 07:54 Order name: Basic Metabolic Panel; Complete Time: 10:18 [facility] 09/20 07:54 Order name: CBC with Diff; Complete Time: 10:18 [facility] 09/20 07:54 Order name: LFT's; Complete Time: 10:18 [facility] 09/20 07:54 Order name: Magnesium; Complete Time: 10: [facility] 09/20 07:54 Order name: NT PRO-BNP; Complete Time: 10:18 [facility] 09/20 07:54 Order name: PT-INR; Complete Time: 10:34 09/20 07:54 Order name: Troponin HS; Complete Time: 10: [facility] 09/20 07:54 Order name: Lipase; Complete Time: 10:18 [facility] 09/20 07:54 Order name: Urine Culture 09/20 07:54 Order name: Osmolality, Serum 09/20 07:54 Order name: Urine Sodium Random; Complete Time: 10:18 [facility] 09/20 07:54 Order name: Urine Osmolality 09/20 09:10 Order name: Urine Dipstick-Ancillary; Complete Time: 10:18 [facility] 09/20 07:54 Order name: EKG; Complete Time: 07:55 hannah 09/20 07:54 Order name: Cardiac monitoring; Complete Time: : [facility] 09/20 07:54 Order name: EKG - Nurse/Tech; Complete Time: : [facility] 09/20 07:54 Order name: IV Saline Lock; Complete Time: : [facility] 09/20 07:54 Order name: Labs collected and sent; Complete Time: : [facility] 09/20 10:18 Order name: Abdomen with Erect XRAY 09/20 07:54 Order name: O2 Sat Monitoring; Complete Time: 09: hannah 09/20 07:54 Order name: Urine Dipstick-Ancillary (obtain specimen); Complete Time: : [facility] 09/20 10:49 Order name: Blood Pressure Recheck; Complete Time: 11:27 hannah EC:25 Rate is 64 beats/min. Rhythm is regular. QRS [place] is Normal. [place] interval is normal. QRS hannah interval is normal. QT interval is normal. No Q waves. T waves are Normal. No ST changes noted. Clinical impression: Normal ECG and No evidence of ischemia. Interpreted by me. Reviewed by me. Administered Medications: 08:54 Drug: Zofran (Ondansetron) 4 mg Route: IVP; Site: right antecubital; jg9 10:00 Follow up: Response: No adverse reaction; Nausea unchanged jg9 09:02 Drug: cloNIDine 0.1 mg Route: PO; jg9 10:21 Follow up: Response: No adverse reaction; Blood pressure is unchanged jg9 09:19 Drug: Norvasc (amlodipine) 10 mg Route: PO; jg9 10:21 Follow up: Response: No adverse reaction; Blood pressure is unchanged jg9 09:30 Drug: NS 0.9% 1000 ml Route: IV; Rate: 125 ml/hr; Site: right antecubital; jg9 11:51 Follow up: IV Status: Order to discontinue infusion; IV Intake: 250ml jg9 09:35 Drug: morphine 4 mg Route: IVP; Infused Over: 4 mins; Site: right wrist; jg9 10:00 Follow up: Response: No adverse reaction; Pain is unchanged, physician notified jg9 10:37 Drug: Magnesium Sulfate 2 grams Route: IVPB; Infused Over: 1 hrs; Site: right wrist; jg9 11:30 Follow up: IV Status: Completed infusion; IV Intake: 50ml jg9 10:37 Drug: Zofran (Ondansetron) 4 mg Route: IVP; Site: right wrist; jg9 11:02 Follow up: Response: No adverse reaction; Nausea is decreased jg9 11:05 Drug: Losartan 50 mg Route: PO; jg9 11:26 Follow up: Response: No adverse reaction; Blood pressure is lowered jg9 11:05 Drug: cloNIDine 0.1 mg Route: PO; jg9 11:26 Follow up: Response: No adverse reaction; Blood pressure is lowered jg9 Disposition Summary: 09/20/21 10:55 Discharge Ordered Location: Home hannah Problem: new hannah Symptoms: have improved hannah Condition: Stable hannah Diagnosis - Hypomagnesemia hannah - Abdominal pain, Generalized hannah - Vomiting hannah - Essential (primary) hypertension hannah Followup: hannah - With: Private Physician - When: 2 - 3 days - Reason: Recheck today's complaints, Continuance of care, Re-evaluation by your physician Followup: hannah - With: - When: 2 - 3 days - Reason: Recheck today's complaints, Re-evaluation by your physician Followup: hannah - With: - When: 2 - 3 days - Reason: Recheck today's complaints, Re-evaluation by your physician Discharge Instructions: - Discharge Summary Sheet hannah - Abdominal Pain, Adult hannah - Hypertension, Adult hannah - Hypomagnesemia hannah - Abdominal Pain, Adult, [id number] hannah - Hypertension, Adult, [id number] hannah - How to Take Your Blood Pressure, [id number] hannah - Managing Your Hypertension hannah - Vomiting, Adult hannah Forms: - Medication Reconciliation Form hannah - Thank You Letter hannah - Antibiotic Education hannah - Prescription Opioid Use [facility] Prescriptions: - Norvasc 10 mg Oral Tablet - take 1 tablet by ORAL route once daily; 30 tablet; Refills: 0, Product hannah Selection Permitted - Zofran 4 mg Oral Tablet - take 1 tablet by ORAL route every 12 hours As needed; 20 tablet; Refills: 0, [facility] Product Selection Permitted - Pepcid 20 mg Oral Tablet - take 1 tablet by ORAL route every 12 hours for 15 days; 30 tablet; Refills: 0, [facility] Product Selection Permitted - clonidine HCl 0.1 mg Oral tablet - take 2 tablet by ORAL route 2 times per day; 40 tablet; Refills: 0, Product hannah Selection Permitted - losartan 50 mg Oral tablet - take 1 tablet by ORAL route once daily; 2 tablet; Refills: 0, Product Selection [facility] Permitted - dicyclomine 20 mg Oral Tablet - take 1 tablet by ORAL route 4 times per day; 28 tablet; Refills: 0, Product hannah Selection Permitted Signatures: Dispatcher [employer] EDDiego Angela MD MD cha Williams, Irene RN Viridiana Riley RN RN jg9 Corrections: (The following items were deleted from the chart) 08:41 07:55 Abdomen Pelvis Wo Con+CT.RAD.BRZ ordered. [facility]HI EDMS 09:21 07:55 Chest Single View+RAD.RAD.BRZ ordered. EDMS EDMS
--- NOTE | 2021-09-20 10:55 | ER ---
Nurse's Notes [facility] Name: Jaiime Amanda Age: 60 yrs Sex: Female : 1960 Arrival Date: 09/20/2021 Time: 07:26 Bed 6 Private MD: Diagnosis: Hypomagnesemia;Abdominal pain, Generalized;Vomiting;Essential (primary) hypertension Presentation: 09/20 07:33 Chief complaint: Patient states: stabbing abd pain X 2 hours, denies vomiting or iw diarrhea, denies urinary s/s. Coronavirus screen: At this time, the client does not indicate any symptoms associated with coronavirus-19. Ebola Screen: Patient negative for fever greater than or equal to 101.5 degrees Fahrenheit, and additional compatible Ebola Virus Disease symptoms Patient denies exposure to infectious person. Patient denies travel to an Ebola-affected area in the 21 days before illness onset. No symptoms or risks identified at this time. Initial Sepsis Screen: Does the patient meet any 2 criteria? No. Patient's initial sepsis screen is negative. Does the patient have a suspected source of infection? No. Patient's initial sepsis screen is negative. Risk Assessment: Do you want to hurt yourself or someone else? Patient reports no desire to harm self or others. Onset of symptoms was September 20, 2021. 07:33 Method Of Arrival: Ambulatory iw 07:33 Acuity: ZHEN 3 iw Triage Assessment: 08:00 General: Appears in no apparent distress. uncomfortable, Behavior is appropriate for jg9 age, anxious. Historical: - Allergies: 07:34 No Known Allergies; iw - Home Meds: 07:34 Clonidine Oral [Active]; Klonopin Oral [Active]; levothyroxine oral [Active]; Metformin iw Oral [Active]; 10:40 losartan Oral [Active]; jg9 - PMHx: 07:34 Anxiety; depressive disorder; diabetes mellitus; Hypertensive disorder; Hypothyroidism; iw - PSHx: 07:34 Thyroidectomy; iw - Immunization history:: Client reports receiving the 2nd dose of the Covid vaccine. - Social history:: Smoking status: Patient reports the use of cigarette tobacco products. - Family history:: not pertinent. Screenin:39 Abuse screen: Denies threats or abuse. Denies injuries from another. Nutritional jg9 screening: No deficits noted. Tuberculosis screening: No symptoms or risk factors identified. Fall Risk None identified. Assessment: 09:30 Pain: Complains of pain in right upper quadrant and right lower quadrant Pain currently jg9 is 9.5 out of 10 on a pain scale. GI: Bowel sounds hyperactive in right upper quadrant, left upper quadrant, right lower quadrant and left lower quadrant Abd is soft X 4 quads Abdomen is tender to palpation in right upper quadrant and right lower quadrant. 09:46 Reassessment: No changes from previously documented assessment. Patient and/or family jg9 updated on plan of care and expected duration. Pain level reassessed. Patient is alert, oriented x 3, equal unlabored respirations, skin warm/dry/pink. 10:00 Reassessment: Patient reports that she was supposed to start a new bp medication that joseg9 is a beta trell but she has not started taking it, patient denied taking any of her bp medications today-provider notified of hypertension. 10:35 Reassessment: Patient returned from XR and stated she was feeling better, when asked jg9 what they did in XR that this nurse couldn't do and she stated, "I just want to go home", when advised she needed some additional medications and the results of the XR so she would be here a little longer she laid on the bed and said ok, then she grabbed her abdomen and stated, "I just hurt so bad". Vital Signs: 07:33 BP 168 / 99; Pulse 76; Resp 16; Temp 97.6; Pulse Ox 95% on R/A; Weight 72.57 kg; Height iw 5 ft. 7 in. (170.18 cm); Pain 9/10; 08:00 BP 190 / 101; Pulse 67; Resp 17 S; Pulse Ox 98% on R/A; jg9 08:30 BP 198 / 101; Pulse 65; Resp 17; Pulse Ox 98% ; Pain 9/10; jg9 09:00 BP 204 / 93; Pulse 64; Resp 17 S; Pulse Ox 98% on R/A; Pain 9/10; jg9 09:30 BP 201 / 91; Pulse 63; Resp 17 S; Pulse Ox 97% ; Pain 9/10; jg9 10:45 BP 218 / 98; Pulse 64; Resp 18 S; Pulse Ox 96% on R/A; jg9 11:00 BP 217 / 110; Pulse 66; Resp 20 S; Pulse Ox 95% on R/A; jg9 11:25 BP 195 / 71; Pulse 66; Resp 17 S; Pulse Ox 93% on R/A; jg9 07:33 Body Mass Index 25.06 (72.57 kg, 170.18 cm) iw ED Course: 07:26 Patient arrived in ED. mr 07:34 Triage completed. iw 07:35 Arm band placed on. iw 07:42 Diego Ramirez MD is Attending Physician. hannah 08:00 Patient has correct armband on for positive identification. Bed in low position. Call jg9 light in reach. Side rails up X 1. 08:08 Viridiana Diehl, CATY is Primary Nurse. jg9 08:53 Inserted saline lock: 22 gauge in right antecubital area, using aseptic technique. jg9 Blood collected. 10:33 Abdomen with Erect XRAY In Process Unspecified. EDMS 10:55 aDniel Cespedes MD is Referral Physician. hannah 10:55 Nataliia Flores MD is Referral Physician. hannah 11:49 No provider procedures requiring assistance completed. jg9 11:50 IV discontinued. jg9 Administered Medications: 08:54 Drug: Zofran (Ondansetron) 4 mg Route: IVP; Site: right antecubital; jg9 10:00 Follow up: Response: No adverse reaction; Nausea unchanged jg9 09:02 Drug: cloNIDine 0.1 mg Route: PO; jg9 10:21 Follow up: Response: No adverse reaction; Blood pressure is unchanged jg9 09:19 Drug: Norvasc (amlodipine) 10 mg Route: PO; jg9 10:21 Follow up: Response: No adverse reaction; Blood pressure is unchanged jg9 09:30 Drug: NS 0.9% 1000 ml Route: IV; Rate: 125 ml/hr; Site: right antecubital; jg9 11:51 Follow up: IV Status: Order to discontinue infusion; IV Intake: 250ml jg9 09:35 Drug: morphine 4 mg Route: IVP; Infused Over: 4 mins; Site: right wrist; jg9 10:00 Follow up: Response: No adverse reaction; Pain is unchanged, physician notified jg9 10:37 Drug: Magnesium Sulfate 2 grams Route: IVPB; Infused Over: 1 hrs; Site: right wrist; jg9 11:30 Follow up: IV Status: Completed infusion; IV Intake: 50ml jg9 10:37 Drug: Zofran (Ondansetron) 4 mg Route: IVP; Site: right wrist; jg9 11:02 Follow up: Response: No adverse reaction; Nausea is decreased jg9 11:05 Drug: Losartan 50 mg Route: PO; jg9 11:26 Follow up: Response: No adverse reaction; Blood pressure is lowered jg9 11:05 Drug: cloNIDine 0.1 mg Route: PO; jg9 11:26 Follow up: Response: No adverse reaction; Blood pressure is lowered jg9 Medication: 11:50 VIS not applicable for this client. jg9 Intake: 11:30 IV: 50ml; Total: 50ml. jg9 11:51 IV: 250ml; Total: 300ml. jg9 Outcome: 10:55 Discharge ordered by MD. young 11:49 Discharged to home ambulatory. jg9 11:49 Condition: unchanged 11:49 Discharge instructions given to patient, Instructed on discharge instructions, follow up and referral plans. Demonstrated understanding of instructions, follow-up care, Prescriptions given X 11:52 Patient left the ED. jg9 Signatures: Dispatcher [employer] EDDiego Angela MD MD cha Rivera, Radha Therese Vanessa RN Viridiana Riley RN RN jg9 Corrections: (The following items were deleted from the chart) 10:21 10:21 Response: No adverse reaction; Blood pressure is lowered jg9 jg9
[2021-09-20] MEDS ORDERED: LOSARTAN POTASSIUM 50 MG TABLET ONE (11:11)
--- NOTE | 2021-09-20 11:34 | RAD REPORT ---
EXAM DESCRIPTION: RAD - Abdomen W Erect - 09/20/2021 10:32 am CLINICAL HISTORY: vonit Abdominal pain COMPARISON: Angio Aorta For Dissection dated 11/02/2018 TECHNIQUE: Supine and upright views of the abdomen were obtained. FINDINGS: Air and stool are scattered throughout the nondilated colon. A few prominent air-filled sm all bowel loops are present. Bowel obstruction is not suspected on these images. No free air or pneum atosis. No identifiable calculi. No acute bone finding. IMPRESSION: Prominent small bowel loops are present and may indicate ileus or gastroenteritis. No bowel obstruction or emergent finding identified.
[2021-09-20 12:01] VITALS: TEMP 97.6
[2021-09-20 12:15] VITALS: BP 195/71; O2SAT 93
--- NOTE | 2021-09-21 09:02 | EKG ---
Test Date: 2021-09-20 Test Time: 08:45:13 Transverse Abdominal Muscle Surgeon: JAIRON MEASUREMENT RESULTS: Intervals: Rate: 64 CO: 166 QRSD: 84 QT: 394 QTc: 406 [place]: P: 64 CO: 166 QRS: 62 T: 53 INTERPRETIVE STATEMENTS: Normal sinus rhythm Normal ECG Compared to ECG 09/06/2021 11:23:03 No significant changes Electronically Signed On 09-21-21 09:02:33 CDT by Daniel Cespedes
== END 2021-09-20 11:52 | disposition home or self-care (01) ==
LOC: ER 07:24
DX: R10.84 Generalized abdominal pain (principal); E83.42 Hypomagnesemia; R11.10 Vomiting, unspecified; I10 Essential (primary) hypertension; E11.9 Type 2 diabetes mellitus without complications; E03.9 Hypothyroidism, unspecified; F32.A Depression, unspecified; Z72.0 Tobacco use
CPT/HCPCS: 93005; 87088; 85025; 87086; 80048; 36415; 83735; 85610; 84300; 80076; 81003; 84484; 83690; 83880; 83930; 83935; 74019; 99284; J3475; J7030; J2405 ×2

== ENCOUNTER 2021-09-27 13:47 | Emergency (ER) | payer OTHER ==
--- OUTSIDE RECORDS SUMMARY | 2021-09-27 13:52 | XMS REPORT | Continuity of Care Document ---
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 Allergies, Adverse Reactions, Alerts Allergy Allergy Status Severity Reaction(s) Onset Inactive Treating Comm ents Source Name Type Date Date Clinician Mesna - Propensi Active Intraven ty to 5-23 ous adverse 00:00: reaction 00 to drug Nitrogly Propensi Active cerin ER ty to 4-06 - Oral adverse 00:00: reaction 00 to drug Hmg-Coa Propensi Active Reductas ty to 2-14 e adverse 00:00: Inhibito reaction 00 rs to drug Statins- Propensi Inactiv HMG-CoA ty to e -27 Reductas adverse 00:00: e reaction 00 Inhibito to drug rs Hmg-Coa Propensi Inactiv Reductas ty to e 9-24 e adverse 00:00: Inhibito reaction 00 rs to drug NITRO DRUG Active Other-Cmnt Univer s TRANSDER 5-21 ity of MAL 00:00: [place] [facility] ACETAMIN DRUG Active Other-Cmnt 2018-0 Univ ers OPHEN INGREDI 5-21 ity of 00:00: [place] [address] [facility] Hmg-Coa Propensi Inactiv Reductas ty to e 2-28 e adverse 00:00: Inhibito reaction 00 rs to drug Nitrogly Propensi Active 2017-03 cerin ty to 1-08 adverse 00:00: reaction 00 to drug Social History Social Habit Start Date Stop Date Quantity Comments Source Sex Assigned At [facility] Alcohol intake 2016-05-01 2016-05-01 Current [facility] es 00:00:00 00:00:00 non-drinker of Medical Ce nter alcohol (finding) Smoking Status Start Date Stop Date Source Current every day smoker 2016-05-01 00:00:00 [facility] Medications Ordered Filled Start Stop Current Ordering Indication Dosage Frequency Signature Comments Components Source Medication Medication Date Date Medication? Clinician (SIG) Name Name losartan 2021-0 No 1mg 100 7-12 mg-hydrochl 00:00: orothiazide 00 25 mg tablet carvedilol 2-0 No 1mg 12.5 mg 7-12 tablet 00:00: 00 clonidine 2-0 No 1mg HCl 0.3 mg 5-26 tablet 00:00: 00 levothyroxi 2-0 No 1mcg ne 137 mcg 5-23 tablet 00:00: 00 metformin 2-0 No 1mg ER 500 mg 4-24 tablet,exte 00:00: nded 00 release 24 hr fenofibrate 2-0 No 1mg 160 mg 4-21 tablet 00:00: 00 clonidine 2-0 No 1mg HCl 0.3 mg 4-20 tablet 00:00: 00 levothyroxi 2-0 No 1mcg ne 137 mcg 4-06 tablet 00:00: 00 Dose 2022-0 No Unknown 4-06 00:00: 00 Dose 2022-0 No Unknown 4-06 00:00: 00 Dose 2022-0 No Unknown 4-06 00:00: 00 Dose 2022-0 No Unknown 4-06 00:00: 00 Dose 2022-0 No Unknown 4-06 00:00: 00 Dose 2022-0 No Unknown 4-06 00:00: 00 Dose 2022-0 No Unknown 4-06 00:00: 00 Dose 2022-0 No Unknown 4-06 00:00: 00 Dose 2022-0 No Unknown 4-06 00:00: 00 Dose 2022-0 No Unknown 4-06 00:00: 00 Dose 2022-0 No Unknown 4-06 00:00: 00 Dose 2022-0 No Unknown 4-06 00:00: 00 Dose 2022-0 No Unknown 4-06 00:00: 00 Dose 2022-0 No Unknown 4-06 00:00: 00 Dose 2022-0 No Unknown 4-06 00:00: 00 Dose 2022-0 No Unknown 4-06 00:00: 00 Dose 2022-0 No Unknown 4-06 00:00: 00 Dose 2022-0 No Unknown 4-06 00:00: 00 Dose 2022-0 No Unknown 4-06 00:00: 00 Dose 2022-0 No Unknown 4-06 00:00: 00 Dose 2022-0 No Unknown 4-06 00:00: 00 Dose 2022-0 No Unknown 4-06 00:00: 00 Dose 2022-0 No Unknown 4-06 00:00: 00 Dose 2022-0 No Unknown 4-06 00:00: 00 Dose 2022-0 No Unknown 4-06 00:00: 00 Dose 2022-0 No Unknown 4-06 00:00: 00 Dose 2022-0 No Unknown 4-06 00:00: 00 Dose 2022-0 No Unknown 4-06 00:00: 00 Dose 2022-0 No Unknown 4-06 00:00: 00 Dose 2022-0 No Unknown 4-06 00:00: 00 Dose 2022-0 No Unknown 4-06 00:00: 00 Dose 2022-0 No Unknown 4-06 00:00: 00 Dose 2022-0 No Unknown 4-06 00:00: 00 Dose 2022-0 No Unknown 4-06 00:00: 00 Dose 2022-0 No Unknown 4-06 00:00: 00 Dose 2022-0 No Unknown 4-06 00:00: 00 Dose 2022-0 No Unknown 4-06 00:00: 00 Dose 2022-0 No Unknown 4-06 00:00: 00 Dose 2022-0 No Unknown 4-06 00:00: 00 Dose 2022-0 No Unknown 4-06 00:00: 00 Dose 2022-0 No Unknown 4-06 00:00: 00 Dose 2022-0 No Unknown 4-06 00:00: 00 Dose 2022-0 No Unknown 4-06 00:00: 00 Dose 2022-0 No Unknown 4-06 00:00: 00 Dose 2022-0 No Unknown 4-06 00:00: 00 losartan 2022-0 No 1mg 100 1-28 mg-hydrochl 00:00: orothiazide 00 25 mg tablet levothyroxi 2-0 No 1mcg ne 137 mcg 1-28 tablet 00:00: 00 Dose 2021-1 No Unknown 2-08 00:00: 00 losartan 1-1 No 1mg 100 0-19 mg-hydrochl 00:00: orothiazide 00 25 mg tablet Dose 1-1 No Unknown 0-19 00:00: 00 levothyroxi 1-1 No 1mcg ne 137 mcg 0-19 tablet 00:00: 00 levothyroxi 1-0 No 1mcg ne 137 mcg 9-17 tablet 00:00: 00 levothyroxi 1-0 No 1mcg ne 137 mcg 8-27 tablet 00:00: 00 liothyronin 1-0 No 1mcg e 5 mcg 8-26 tablet 00:00: 00 losartan 1-0 No 1mg 100 8-19 mg-hydrochl 00:00: orothiazide 00 25 mg tablet cetirizine 1-0 No 1mg 10 mg 8-02 tablet 00:00: 00 fenofibrate 1-0 No 1mg 160 mg 8-02 tablet 00:00: 00 fluticasone 1-0 No 2mcg/ac propionate 8-02 tuation 50 00:00: mcg/actuati 00 on nasal spray,suspe nsion Tessalon 1-0 No 1mg Perles 100 8-02 mg capsule 00:00: 00 ezetimibe 1-0 No 1mg 10 mg 7-27 tablet 00:00: 00 losartan 1-0 No 1mg 100 7-27 mg-hydrochl 00:00: orothiazide 00 25 mg tablet clonidine 1-0 No 1mg HCl 0.3 mg 7-27 tablet 00:00: 00 liothyronin 1-0 No 1mcg e 5 mcg 7-27 tablet 00:00: 00 levothyroxi 1-0 No 1mcg ne 137 mcg 7-19 tablet 00:00: 00 clonidine 1-0 No 1mg HCl 0.2 mg 5-04 tablet 00:00: 00 ezetimibe 1-0 No 1mg 10 mg 5-04 tablet 00:00: 00 losartan 1-0 No 1mg 100 5-04 mg-hydrochl 00:00: orothiazide 00 25 mg tablet liothyronin 1-0 No 1mcg e 5 mcg 5-04 tablet 00:00: 00 levothyroxi 1-0 No 1mcg ne 137 mcg 5-04 tablet 00:00: 00 clonidine 1-0 No 1mg HCl 0.2 mg 4-08 tablet 00:00: 00 ezetimibe 1-0 No 1mg 10 mg 3-17 tablet 00:00: 00 liothyronin 1-0 No 1mcg e 5 mcg 3-17 tablet 00:00: 00 levothyroxi 1-0 No 1mcg ne 137 mcg 3-17 tablet 00:00: 00 losartan 2020-0 No 1mg 100 3-16 mg-hydrochl 00:00: orothiazide 00 25 mg tablet levothyroxi 2020-0 No 1mcg ne 125 mcg 3-16 tablet 00:00: 00 liothyronin 1-0 No 1mcg e 5 mcg 3-16 tablet 00:00: 00 sulfamethox 1-0 No 1mg azole 800 1-14 mg-trimetho 00:00: prim 160 mg 00 tablet ondansetron 2020-0 No 1mg 8 mg 1-14 disintegrat 00:00: ing tablet 00 amoxicillin 2020-0 No 1mg 875 1-05 mg-potassiu 00:00: m 00 clavulanate 125 mg tablet liothyronin 1-0 No 1mcg e 5 mcg 1-05 tablet 00:00: 00 levothyroxi 1-0 No 1mcg ne 125 mcg 1-05 tablet 00:00: 00 indomethaci 1-0 No 1mg n 50 mg 1-05 capsule 00:00: 00 metformin 2019-1 No 1mg ER 500 mg 2-31 tablet,exte 00:00: nded 00 release 24 hr clonidine 2020-1 No 1mg HCl 0.2 mg 2-24 tablet 00:00: 00 losartan 2020-1 No 1mg 100 2-24 mg-hydrochl 00:00: orothiazide 00 25 mg tablet ondansetron 2019-1 No 1mg 4 mg 2-04 disintegrat 00:00: ing tablet 00 levothyroxi 2020-1 No 1mcg ne 125 mcg 2-04 tablet 00:00: 00 liothyronin 2020-1 No 1mcg e 5 mcg 2-04 tablet 00:00: 00 levothyroxi 2020-1 No 1mcg ne 125 mcg 0-08 tablet 00:00: 00 liothyronin 2020-1 No 1mcg e 5 mcg 0-08 tablet 00:00: 00 losartan 2020-0 No 1mg 100 9-18 mg-hydrochl 00:00: orothiazide 00 25 mg tablet metformin 2020-0 No 1mg ER 500 mg 9-18 tablet,exte 00:00: nded 00 release 24 hr liothyronin 2020-0 No 1mcg e 5 mcg 9-04 tablet 00:00: 00 levothyroxi 2020-0 No 1mcg ne 137 mcg 9-04 tablet 00:00: 00 amoxicillin 2020-0 No 1mg 500 mg 7-10 capsule 00:00: 00 liothyronin 2020-0 No 1mcg e 5 mcg 3-27 tablet 00:00: 00 levothyroxi 2020-0 No 1mcg ne 137 mcg 3-27 tablet 00:00: 00 metformin 2020-0 No mg ER 500 mg 3-26 tablet,exte 00:00: nded 00 release 24 hr paroxetine 2020-0 No 1mg 40 mg 3-26 tablet 00:00: 00 losartan 2020-0 No 1mg 100 3-26 mg-hydrochl 00:00: orothiazide 00 25 mg tablet clonidine 2020-0 No 1mg HCl 0.2 mg 3-26 tablet 00:00: 00 Zofran 4 mg 2020-0 No 1mg tablet 3-26 00:00: 00 metformin 2020-0 No 1mg ER 500 mg 3-26 tablet,exte 00:00: nded 00 release 24 hr Trileptal 2020-0 No 1mg 600 mg 3-26 tablet 00:00: 00 trazodone 2020-0 No 1mg 100 mg 3-26 tablet 00:00: 00 baclofen 10 2020-0 No 1mg mg tablet 3-26 00:00: 00 liothyronin 2020-0 No 1mcg e 5 mcg 3-26 tablet 00:00: 00 levothyroxi 2020-0 No 1mcg ne 137 mcg 3-26 tablet 00:00: 00 omeprazole 2020-0 No 1mg 40 mg 3-26 capsule,del 00:00: ayed 00 release Linzess 145 2020-0 No 1mcg mcg capsule 3-26 00:00: 00 ondansetron 2020-0 No mg HCl 4 mg 3-25 tablet 00:00: 00 risperidone 2020-0 No mg 1 mg tablet 3-20 00:00: 00 losartan 2020-0 No 1mg 100 1-22 mg-hydrochl 00:00: orothiazide 00 25 mg tablet pantoprazol 2020-0 No 1mg e 40 mg 1-22 tablet,mali 00:00: yed release 00 clonidine 2020-0 No 1mg HCl 0.2 mg 1-22 tablet 00:00: 00 metformin 2020-0 No 1mg ER 500 mg 1-22 tablet,exte 00:00: nded 00 release 24 hr levothyroxi 2020-0 No 1mcg ne 137 mcg 1-22 tablet 00:00: 00 levothyroxi 2020-0 No 1mcg ne 137 mcg 1-22 tablet 00:00: 00 liothyronin 2020-0 No 1mcg e 5 mcg 1-22 tablet 00:00: 00 omeprazole 2020-0 No 1mg 20 mg 1-22 capsule,del 00:00: ayed 00 release levothyroxi 2019-1 No 1mcg ne 137 mcg 2-26 tablet 00:00: 00 Flagyl 500 2019-1 No 1mg mg tablet 1-13 00:00: 00 Premarin 2019-1 No 1mg 0.625 mg 1-11 tablet 00:00: 00 metformin 2019-0 No 1mg ER 500 mg 9-24 tablet,exte 00:00: nded 00 release 24 hr levothyroxi 2019-0 No 1mcg ne 137 mcg 9-24 tablet 00:00: 00 levothyroxi 2019-0 No 1mcg ne 137 mcg 9-17 tablet 00:00: 00 Zofran 4 mg 2019-0 No 1mg tablet 8-16 00:00: 00 Cipro 500 2019-0 No 1mg mg tablet 8-16 00:00: 00 Zofran 4 mg 2019-0 No 1mg tablet 7-16 00:00: 00 Zofran 4 mg 2019-0 No 1mg tablet 7-16 00:00: 00 Macrobid 2019-0 No 1mg 100 mg 7-16 capsule 00:00: 00 pantoprazol 2019-0 No 1mg e 40 mg 6-10 tablet,mali 00:00: yed release 00 clonidine 2019-0 No 1mg HCl 0.2 mg 6-10 tablet 00:00: 00 metformin 2019-0 No 1mg ER 500 mg 6-10 tablet,exte 00:00: nded 00 release 24 hr levothyroxi 2019-0 No 1mcg ne 137 mcg 6-10 tablet 00:00: 00 ondansetron 2019-0 No 1mg HCl 4 mg 5-06 tablet 00:00: 00 oxybutynin 2019-0 No 1mg chloride 5 4-01 mg tablet 00:00: 00 ondansetron 2019-0 No 1mg HCl 4 mg 4-01 tablet 00:00: 00 nitrofurant 2019-0 No 1mg oin 4-01 monohydrate 00:00: /macrocryst 00 als 100 mg capsule sulfamethox 2019-0 No 1mg azole 800 3-21 mg-trimetho 00:00: prim 160 mg 00 tablet ondansetron 2019-0 No 1mg HCl 4 mg 3-18 tablet 00:00: 00 cephalexin 2019-0 No 1mg 500 mg 3-12 capsule 00:00: 00 metformin 2019-0 No 1mg ER 500 mg 3-02 tablet,exte 00:00: nded 00 release 24 hr levothyroxi 2019-0 No 1mcg ne 137 mcg 3-02 tablet 00:00: 00 metformin 2018-1 No 1mg ER 500 mg 1-11 tablet,exte 00:00: nded 00 release 24 hr levothyroxi 2018-1 No 1mcg ne 137 mcg 1-11 tablet 00:00: 00 Prilosec 2018-1 No 1mg OTC 20 mg 1-08 tablet,mali 00:00: yed release 00 trazodone 2018-1 No 1mg 100 mg 1-08 tablet 00:00: 00 levothyroxi 2018-0 No 1mcg ne 137 mcg 9-03 tablet 00:00: 00 levothyroxi 2018-0 No 1mcg ne 150 mcg 8-29 tablet 00:00: 00 amlodipine 2018-0 No 1mg 5 mg tablet 8-28 00:00: 00 amlodipine 2018-0 No 1mg 5 mg tablet 8-28 00:00: 00 levothyroxi 2018-0 No 1mcg ne 150 mcg 8-28 tablet 00:00: 00 amlodipine 2018-0 No 1mg 5 mg tablet 7-17 00:00: 00 ondansetron 2018-0 No 1mg HCl 4 mg 7-17 tablet 00:00: 00 levothyroxi 2018-0 No 1mcg ne 150 mcg 7-17 tablet 00:00: 00 ondansetron 2018-0 No 1mg HCl 4 mg 7-10 tablet 00:00: 00 levothyroxi 2018-0 No 1mcg ne 150 mcg 6-28 tablet 00:00: 00 amlodipine 2018-0 No 1mg 5 mg tablet 6-25 00:00: 00 ondansetron 2018-0 No 1mg HCl 4 mg 6-25 tablet 00:00: 00 Nexium 20 2018-0 No 1mg mg 6-25 capsule,del 00:00: ayed 00 release clonidine 2018-0 No 1mg HCl 0.2 mg 6-15 tablet 00:00: 00 mirtazapine 2018-0 No 1mg 30 mg 6-06 tablet 00:00: 00 levothyroxi 2018-0 No 1mcg ne 125 mcg 6-06 tablet 00:00: 00 lovastatin 2018-0 No 1mg 10 mg 5-02 tablet 00:00: 00 lovastatin 2018-0 No 1mg 20 mg 4-20 tablet 00:00: 00 mirtazapine 2018-0 No 1mg 30 mg 4-16 tablet 00:00: 00 levothyroxi 2018-0 No 1mcg ne 125 mcg 2-12 tablet 00:00: 00 levothyroxi 2018-0 No 1mcg ne 125 mcg 2-09 tablet 00:00: 00 levothyroxi 2017-1 No 1mcg ne 125 mcg 2-21 tablet 00:00: 00 hydrochloro 2017-1 No 1mg thiazide 25 2-20 mg tablet 00:00: 00 levothyroxi 2017-1 No 1mcg ne 150 mcg 2-20 tablet 00:00: 00 paroxetine 2017-1 No 1mg 40 mg 1-15 tablet 00:00: 00 paroxetine 2017-1 No 1mg 40 mg 1-15 tablet 00:00: 00 risperidone 2017-1 No 1mg 1 mg tablet 1-15 00:00: 00 Trileptal 2017-1 No 1mg 600 mg 1-15 tablet 00:00: 00 mirtazapine 2017-1 No 1mg 30 mg 1-15 tablet 00:00: 00 levothyroxi 2017-1 No 1mcg ne 150 mcg 0-24 tablet 00:00: 00 risperidone 2017-0 No 1mg 1 mg tablet 7-05 00:00: 00 Trileptal 2017-0 No 1mg 600 mg 7-05 tablet 00:00: 00 baclofen 10 2017-0 No 1mg mg tablet 7-05 00:00: 00 hydroxyzine 2017-0 No 1mg pamoate 50 7-05 mg capsule 00:00: 00 ondansetron 2017-0 No 1mg HCl 8 mg 6-29 tablet 00:00: 00 levothyroxi 2017-0 No 1mcg ne 150 mcg 6-21 tablet 00:00: 00 paroxetine 2017-0 No 1mg 40 mg 6-16 tablet 00:00: 00 mirtazapine 2017-0 No 1mg 30 mg 6-16 tablet 00:00: 00 oxybutynin 2017-0 No 1mg chloride 5 6-12 mg tablet 00:00: 00 ondansetron 2017-0 No 1mg HCl 8 mg 6-12 tablet 00:00: 00 Keflex 500 2017-0 No 1mg mg capsule 6-05 00:00: 00 hydrochloro 2017-0 No 1mg thiazide 50 5-30 mg tablet 00:00: 00 ondansetron 2017-0 No 1mg HCl 8 mg 5-30 tablet 00:00: 00 paroxetine 2017-0 No 1mg 40 mg 5-30 tablet 00:00: 00 clonidine 2017-0 No 1mg HCl 0.2 mg 5-30 tablet 00:00: 00 risperidone 2017-0 No 1mg 1 mg tablet 5-30 00:00: 00 Trileptal 2017-0 No 1mg 600 mg 5-30 tablet 00:00: 00 mirtazapine 2017-0 No 1mg 30 mg 5-30 tablet 00:00: 00 oxcarbazepi No 1mg ne 600 mg 5-30 tablet 00:00: 00 baclofen 10 No 1mg mg tablet 5-30 00:00: 00 levothyroxi No 1mcg ne 150 mcg 5-30 tablet 00:00: 00 hydroxyzine No 1mg pamoate 50 5-30 mg capsule 00:00: 00 OXcarbazepi Yes 600mg [id number] Take [address] [facility] [address] ne 2-23 [id number] mg by [facility] (TRILEPTAL) 10:23: 3D mouth [...] LEVOTHROID) 18 daily. Center 100 MCG tablet Vital Signs Vital Name Observation Time Observation Value Comments Source BP Systolic 2021-09-17 09:00:00 178 mm[Hg] BP Diastolic 2021-09-17 09:00:00 97 mm[Hg] Weight Measured 2021-09-17 09:00:00 170.40 pounds Height Measured 2021-09-17 09:00:00 66.00 inches Body Temperature 2021-09-17 09:00:00 97.70 degrees Heart Rate 2021-09-17 09:00:00 80.00 /min Respiratory Rate 2021-09-17 09:00:00 16.00 /min BP Systolic 2021-06-26 08:05:00 181 mm[Hg] BP Diastolic 2021-06-26 08:05:00 90 mm[Hg] Weight Measured 2021-06-26 08:05:00 173.80 pounds Height Measured 2021-06-26 08:05:00 66.00 inches Body Temperature 2021-06-26 08:05:00 98.10 degrees Heart Rate 2021-06-26 08:05:00 89.00 /min Respiratory Rate 2021-06-26 08:05:00 16.00 /min BP Systolic 2021-04-22 10:12:00 162 mm[Hg] BP Diastolic 2021-04-22 10:12:00 90 mm[Hg] Weight Measured 2021-04-22 10:12:00 184.60 pounds Height Measured 2021-04-22 10:12:00 66.00 inches Body Temperature 2021-04-22 10:12:00 98.20 degrees Heart Rate 2021-04-22 10:12:00 87.00 /min Respiratory Rate 2021-04-22 10:12:00 16.00 /min BP Systolic 2021-04-05 13:28:00 BP Diastolic 2021-04-05 13:28:00 Weight Measured 2021-04-05 13:28:00 165.00 pounds Height Measured 2021-04-05 13:28:00 Body Temperature 2021-04-05 13:28:00 Heart Rate 2021-04-05 13:28:00 Respiratory Rate 2021-04-05 13:28:00 BP Systolic 2020-12-25 10:37:00 BP Diastolic 2020-12-25 10:37:00 Weight Measured 2020-12-25 10:37:00 164.00 pounds Height Measured 2020-12-25 10:37:00 66.00 inches Body Temperature 2020-12-25 10:37:00 Heart Rate 2020-12-25 10:37:00 Respiratory Rate 2020-12-25 10:37:00 BP Systolic 2020-10-02 08:36:00 166 mm[Hg] BP Diastolic 2020-10-02 08:36:00 99 mm[Hg] Weight Measured 2020-10-02 08:36:00 181.00 pounds Height Measured 2020-10-02 08:36:00 66.00 inches Body Temperature 2020-10-02 08:36:00 98.40 degrees Heart Rate 2020-10-02 08:36:00 95.00 /min Respiratory Rate 2020-10-02 08:36:00 16.00 /min BP Systolic 2020-05-22 10:22:00 148 mm[Hg] BP Diastolic 2020-05-22 10:22:00 80 mm[Hg] Weight Measured 2020-05-22 10:22:00 179.60 pounds Height Measured 2020-05-22 10:22:00 66.00 inches Body Temperature 2020-05-22 10:22:00 99.20 degrees Heart Rate 2020-05-22 10:22:00 80.00 /min Respiratory Rate 2020-05-22 10:22:00 18.00 /min BP Systolic 2019-09-01 09:05:00 146 mm[Hg] BP Diastolic 2019-09-01 09:05:00 82 mm[Hg] Weight Measured 2019-09-01 09:05:00 174.80 pounds Height Measured 2019-09-01 09:05:00 66.00 inches Body Temperature 2019-09-01 09:05:00 98.50 degrees Heart Rate 2019-09-01 09:05:00 80.00 /min Respiratory Rate 2019-09-01 09:05:00 16.00 /min BP Systolic 2019-06-02 10:47:00 BP Diastolic 2019-06-02 10:47:00 Weight Measured 2019-06-02 10:47:00 170.20 pounds Height Measured 2019-06-02 10:47:00 66.00 inches Body Temperature 2019-06-02 10:47:00 98.10 degrees Heart Rate 2019-06-02 10:47:00 85.00 /min Respiratory Rate 2019-06-02 10:47:00 16.00 /min BP Systolic 2019-03-30 08:53:00 145 mm[Hg] BP Diastolic 2019-03-30 08:53:00 76 mm[Hg] Weight Measured 2019-03-30 08:53:00 167.20 pounds Height Measured 2019-03-30 08:53:00 66.00 inches Body Temperature 2019-03-30 08:53:00 98.50 degrees Heart Rate 2019-03-30 08:53:00 66.00 /min Respiratory Rate 2019-03-30 08:53:00 16.00 /min Procedures This patient has no known procedures. Plan of Care Planned Activity Planned Date Details Comments Source Goal Plan of Care Note [code = 10014-8] Goal Plan of Care Note [code = 73989-6] Goal Plan of Care Note [code = 33697-2] Goal Plan of Care Note [code = 41861-2] Goal Plan of Care Note [code = 09633-6] Goal Plan of Care Note [code = 24988-7] Goal Plan of Care Note [code = 50108-7] Goal Plan of Care Note [code = 33438-1] Goal Plan of Care Note [code = 10056-9] Goal Plan of Care Note [code = 24633-1] Goal Plan of Care Note [code = 55263-0] Goal Plan of Care Note [code = 51073-9] Goal Plan of Care Note [code = 75810-4] Goal Plan of Care Note [code = 68225-8] Goal Plan of Care Note [code = 93090-3] Goal Plan of Care Note [code = 79086-5] Goal Plan of Care Note [code = 36107-6] Goal Plan of Care Note [code = 67481-7] Goal Plan of Care Note [code = 72218-5] Goal Plan of Care Note [code = 94410-9] Goal Plan of Care Note [code = 43359-2] Goal Plan of Care Note [code = 29570-1] Goal Plan of Care Note [code = 11400-0] Goal Plan of Care Note [code = 72518-8] Goal Plan of Care Note [code = 10514-3] Goal Plan of Care Note [code = 21056-2] Goal Plan of Care Note [code = 35259-5] Goal Plan of Care Note [code = 73183-6] Goal Plan of Care Note [code = 63899-0] Goal Plan of Care Note [code = 21786-6] Goal Plan of Care Note [code = 92637-0] Goal Plan of Care Note [code = 64385-4] Goal Plan of Care Note [code = 75203-1] Goal Plan of Care Note [code = 58542-0] Goal Plan of Care Note [code = 75455-0] Goal Plan of Care Note [code = 44796-9] Goal Plan of Care Note [code = 12009-9] Goal Plan of Care Note [code = 57289-2] Goal Plan of Care Note [code = 06608-9] Goal Plan of Care Note [code = 23882-4] Goal Plan of Care Note [code = 03886-9] Goal Plan of Care Note [code = 70505-0] Goal Plan of Care Note [code = 00746-1] Goal Plan of Care Note [code = 92202-8] Goal Plan of Care Note [code = 64176-5] Goal Plan of Care Note [code = 75598-2] Goal Plan of Care Note [code = 11785-0] Goal Plan of Care Note [code = 80835-3] Goal Plan of Care Note [code = 09631-3] Goal Plan of Care Note [code = 37258-9] Goal Plan of Care Note [code = 40724-9] Encounters Start End Encounter Admission Attending Care Care Encounter Source Date/Time Date/Time Type Type Clinicians Facility Department ID 2021-06-01 Outpatient [facility] [id number] [place] 01:36:29 [id number] [facility] 2021-09-17 2021-09-17 Outpatient [id number] 00:00:00 00:00:00 Visit [id number] 2020-08-03 2020-08-03 Outpatient MATT VÁSQUEZ [facility] [id number] [facility] 10:00:00 10:00:00 MATT SIMPSON [id number] [facility] 2020-08-03 2020-08-03 Outpatient MATT VÁSQUEZ [facility] [id number] [facility] 10:00:00 10:00:00 MATT SIMPSON [facility] 2020-07-25 2020-07-25 Orders Doctor FISH [id number] 00:00:00 00:00:00 Only Unassigned, BK 350.1.13.10 [facility] [id number] [id number] 2019-09-26 2019-09-26 Outpatient Bertin KRISHNAMURTHY [facility] [id number] [facility] 16:00:00 16:00:00 WALLY Hickman20 [facility] 2019-09-26 2019-09-26 Outpatient R RAGHU, [facility] [id number] [facility] 16:00:00 16:00:00 [facility] 2018-10-21 2018-10-21 Telephone Gramm [facility] [id number] 00:00:00 00:00:00 Natacha Nguyen 350.1.13.10 Ade 4.2.7.2.686 Professio [id number] [facility] [address] Results Test Description Test Time Test Comments Results Result Comments Source TSH, THIRD GENERATION 2021-06-27 05:15:49 Test Item Value Reference Range Interpretation Comme nts TSH, THIRD GENERATION (test code = 2821) 2.080 UIU/ML 0.400-4.100 HEMOGLOBIN [id number] 03:46:00 Test Item Value Reference Range Interpretation Comments HEMOGLOBIN A1c (test 6.6 % 4.2-5.6 H [facility] code = 79976) ASSOCIATION IDELINES FOR HGB A1C: PREDIABETES/INC REASED [...] UNLESS OTHER PEREZ INDICATED, ALL TESTING PERFORMED [facility] [address] [place] [address] WARES SORTER: DIANA RUSS M.D. CLIA NUMBER [id number] CAP ACCREDITATION N O. [id number] LIPID [id number] 02:59:52 Test Item Value Reference Range Interpretation [...] MOREINFORMATION , SEE CLIENT ANNOUNCE MENT AT [email or web address] RISK RATIO LDL/HDL 4.02 RATIO <3.22 H (test code = 2238) LIPID [id number] 00:00:00 Test Item Value Reference Range Interpretation Comments CHOLESTEROL (test code = 2210) 292 MG/DL TRIGLYCERIDES (test code = 2232) 184 MG/DL HDL CHOLESTEROL (test code = 2220) 51 MG/DL CALC LDL CHOL (test code = 2237) 205 MG/DL RISK RATIO LDL/HDL (test code = 4.02 RATIO 2238) HEMOGLOBIN [id number] 00:00:00 Test Item Value Reference Range Interpretation Comments HEMOGLOBIN A1c (test code = 88800) 6.6 % HEMOGLOBIN [id number] 00:00:00 Test Item Value Reference Range Interpretation Comments HEMOGLOBIN A1c (test code = 83300) 6.6 % [id number] 00:00:00 Test Item Value Reference Range Interpretation Comments TSH, THIRD GENERATION (test code 2.080 UIU/ML = 2821) [id number] 00:00:00 Test Item Value Reference Range Interpretation Comments TSH, THIRD GENERATION (test code 2.080 UIU/ML = 2821) LIPID [id number] 00:00:00 Test Item Value Reference Range Interpretation Comments CHOLESTEROL (test code = 2210) 303 MG/DL TRIGLYCERIDES (test code = 2232) 191 MG/DL HDL CHOLESTEROL (test code = 2220) 61 MG/DL CALC LDL CHOL (test code = 2237) 205 MG/DL RISK RATIO LDL/HDL (test code = 3.36 RATIO 2238) [id number] 00:00:00 Test Item Value Reference Range Interpretation Comments TSH, THIRD GENERATION (test code 0.769 UIU/ML = 2821) [id number] 00:00:00 Test Item Value Reference Range Interpretation Comments TSH, THIRD GENERATION (test code 0.769 UIU/ML = 2821) COMPREHENSIVE METABOLIC [id number] 00:00:00 Test Item Value Reference Range Interpretation Comments GLUCOSE (test code = 2217) 131 MG/DL BUN (test code = 2208) 13 MG/DL CREATININE (test code = 2214) 0.65 MG/DL eGFR AMER. (test code 113 ML/MIN/1.73 = 04333) eGFR NON- AMER. (test 97 ML/MIN/1.73 code = 35478) CALC BUN/CREAT (test code = 20 RATIO 2235) SODIUM (test code = 2231) 131 MEQ/L POTASSIUM (test code = 2228) 4.5 MEQ/L CHLORIDE (test code = 2215) 92 MEQ/L CARBON DIOXIDE (test code = 24 MEQ/L 2205) CALCIUM (test code = 2209) 9.5 MG/DL PROTEIN, TOTAL (test code = 7.5 G/DL 2228) ALBUMIN (test code = 2201) 4.9 G/DL CALC GLOBULIN (test code = 2.6 G/DL 2240) CALC A/G RATIO (test code = 1.9 RATIO 2234) BILIRUBIN, TOTAL (test code = <0.2 MG/DL 2206) ALKALINE PHOSPHATASE (test 139 U/L code = 2204) AST (test code = 2218) 17 U/L ALT (test code = 2219) 23 U/L HEMOGLOBIN [id number] 00:00:00 Test Item Value Reference Range Interpretation Comments HEMOGLOBIN A1c (test code = 90064) 6.8 % HEMOGLOBIN [id number] 00:00:00 Test Item Value Reference Range Interpretation Comments HEMOGLOBIN A1c (test code = 15929) 6.8 % HEMOGLOBIN [id number] 00:00:00 Test Item Value Reference Range Interpretation Comments HEMOGLOBIN A1c (test code = 90205) 6.6 % LIPID [id number] 00:00:00 Test Item Value Reference Range Interpretation Comments CHOLESTEROL (test code = 2210) 261 MG/DL TRIGLYCERIDES (test code = 2232) 159 MG/DL HDL CHOLESTEROL (test code = 2220) 82 MG/DL CALC LDL CHOL (test code = 2237) 150 MG/DL RISK RATIO LDL/HDL (test code = 1.83 RATIO 2238) COMPREHENSIVE METABOLIC [id number] 00:00:00 Test Item Value Reference Range Interpretation Comments GLUCOSE (test code = 2217) 144 MG/DL BUN (test code = 2208) 15 MG/DL CREATININE (test code = 2214) 0.85 MG/DL eGFR AMER. (test code 87 ML/MIN/1.73 = 56164) eGFR NON- AMER. (test 75 ML/MIN/1.73 code = 57639) CALC BUN/CREAT (test code = 18 RATIO 2235) SODIUM (test code = 2231) 133 MEQ/L POTASSIUM (test code = 2228) 4.5 MEQ/L CHLORIDE (test code = 2215) 93 MEQ/L CARBON DIOXIDE (test code = 28 MEQ/L 2205) CALCIUM (test code = 220) 9.7 MG/DL PROTEIN, TOTAL (test code = 7.5 G/DL 2228) ALBUMIN (test code = 220) 5.0 G/DL CALC GLOBULIN (test code = 2.5 G/DL 2239) CALC A/G RATIO (test code = 2.0 RATIO 2233) BILIRUBIN, TOTAL (test code = <0.2 MG/DL 2206) ALKALINE PHOSPHATASE (test 117 U/L code = 2204) AST (test code = 2218) 27 U/L ALT (test code = 2219) 50 U/L THYROID II PROFILE (T3U, T4, T7, TSH)2020-05-23 00:00:00 Test Item Value Reference Range Interpretation Comments T-UPTAKE (test code = 2817) 30.2 % THYROX. BIND. CAPAC. (test code 1.1 = 30008) T4 (THYROXINE) (test code = 4.3 UG/DL 2819) CORRECTED T4 (FTI) (test code = 3.9 UG/DL 2820) TSH, THIRD GENERATION (test 18.900 UIU/ML code = 2821) HEMOGLOBIN [id number] 00:00:00 Test Item Value Reference Range Interpretation Comments HEMOGLOBIN A1c (test code = 26522) 6.6 % LIPID [id number] 00:00:00 Test Item Value Reference Range Interpretation Comments CHOLESTEROL (test code = 2210) 267 MG/DL TRIGLYCERIDES (test code = 2232) 137 MG/DL HDL CHOLESTEROL (test code = 2220) 48 MG/DL CALC LDL CHOL (test code = 2237) 192 MG/DL RISK RATIO LDL/HDL (test code = 4.00 RATIO 2238) COMPREHENSIVE METABOLIC [id number] 00:00:00 Test Item Value Reference Range Interpretation Comments GLUCOSE (test code = 2217) 155 MG/DL BUN (test code = 2208) 14 MG/DL CREATININE (test code = 2214) 0.52 MG/DL eGFR AMER. (test code 122 ML/MIN/1.73 = 27434) eGFR NON- AMER. (test 105 ML/MIN/1.73 code = 05936) CALC BUN/CREAT (test code = 27 RATIO 2235) SODIUM (test code = 2231) 142 MEQ/L POTASSIUM (test code = 2228) 4.4 MEQ/L CHLORIDE (test code = 2215) 104 MEQ/L CARBON DIOXIDE (test code = 25 MEQ/L 2205) CALCIUM (test code = 2209) 9.2 MG/DL PROTEIN, TOTAL (test code = 7.1 G/DL 2228) ALBUMIN (test code = 2201) 4.5 G/DL CALC GLOBULIN (test code = 2.6 G/DL 2240) CALC A/G RATIO (test code = 1.7 RATIO 2234) BILIRUBIN, TOTAL (test code = <0.2 MG/DL 2206) ALKALINE PHOSPHATASE (test 115 U/L code = 2204) AST (test code = 2218) 17 U/L ALT (test code = 2219) 27 U/L THYROID II PROFILE (T3U, T4, T7, TSH)2019 00:00:00 Test Item Value Reference Range Interpretation Comments T-UPTAKE (test code = 2817) 33.1 % THYROX. BIND. CAPAC. (test code 1.0 = 16668) T4 (THYROXINE) (test code = 4.7 UG/DL 2819) CORRECTED T4 (FTI) (test code = 4.7 UG/DL 2820) TSH, THIRD GENERATION (test code 0.201 UIU/ML = 2821) HEMOGLOBIN [id number] 00:00:00 Test Item Value Reference Range Interpretation Comments HEMOGLOBIN A1c (test code = 36501) 6.7 % HEMOGLOBIN [id number] 00:00:00 Test Item Value Reference Range Interpretation Comments HEMOGLOBIN A1c (test code = 21152) 6.7 % SARS-CoV-2 (COVID-19) by RT-PCR (HIGH RISK)2019-09-18 00:00:00 Test Item Value Reference Range Interpretation Comments SARS-CoV-2 INTERPRETATION (test NEGATIVE code = 57198) SOURCE (test code = 22884) NOT SPECIFIED HEMOGLOBIN [id number] 00:00:00 Test Item Value Reference Range Interpretation Comments HEMOGLOBIN A1c (test code = 96300) 6.4 % HEMOGLOBIN [id number] 00:00:00 Test Item Value Reference Range Interpretation Comments HEMOGLOBIN A1c (test code = 21564) 6.4 % COMPREHENSIVE METABOLIC [id number] 00:00:00 Test Item Value Reference Range Interpretation Comments GLUCOSE (test code = 2217) 206 MG/DL BUN (test code = 2208) 23 MG/DL CREATININE (test code = 2214) 0.67 MG/DL eGFR AMER. (test code 112 ML/MIN/1.73 = 08775) eGFR NON- AMER. (test 97 ML/MIN/1.73 code = 92254) CALC BUN/CREAT (test code = 34 RATIO 2235) SODIUM (test code = 2231) 142 MEQ/L POTASSIUM (test code = 2228) 4.1 MEQ/L CHLORIDE (test code = 2215) 99 MEQ/L CARBON DIOXIDE (test code = 28 MEQ/L 2205) CALCIUM (test code = 2209) 8.8 MG/DL PROTEIN, TOTAL (test code = 6.8 G/DL 2228) ALBUMIN (test code = 2201) 4.6 G/DL CALC GLOBULIN (test code = 2.2 G/DL 2240) CALC A/G RATIO (test code = 2.1 RATIO 2234) BILIRUBIN, TOTAL (test code = <0.2 MG/DL 2206) ALKALINE PHOSPHATASE (test 105 U/L code = 2204) AST (test code = 2218) 17 U/L ALT (test code = 2219) 25 U/L [id number] 00:00:00 Test Item Value Reference Range Interpretation Comments TSH, THIRD GENERATION (test code 2.490 UIU/ML = 2821) [id number] 00:00:00 Test Item Value Reference Range Interpretation Comments TSH, THIRD GENERATION (test code 2.490 UIU/ML = 2821) VAGINAL PATHOGENS DNA [id number] 00:00:00 Test Item Value Reference Range Interpretation Comments MARK SPECIES (test code = ) NEGATIVE G. VAGINALIS (test code = ) NEGATIVE T. VAGINALIS (test code = ) NEGATIVE HEMOGLOBIN A1c [ADDED]2018-12-01 00:00:00 Test Item Value Reference Range Interpretation Comments HEMOGLOBIN A1c (test code = 14590) 6.7 % COMPREHENSIVE METABOLIC PANEL [ADDED]2018-12-01 00:00:00 Test Item Value Reference Range Interpretation Comments GLUCOSE (test code = 2217) 136 MG/DL BUN (test code = 2208) 15 MG/DL CREATININE (test code = 2214) 0.64 MG/DL eGFR AMER. (test code 115 ML/MIN/1.73 = 69057) eGFR NON- AMER. (test 99 ML/MIN/1.73 code = 01709) CALC BUN/CREAT (test code = 23 RATIO 2235) SODIUM (test code = 2231) 142 MEQ/L POTASSIUM (test code = 2228) 4.7 MEQ/L CHLORIDE (test code = 2215) 97 MEQ/L CARBON DIOXIDE (test code = 30 MEQ/L 2205) CALCIUM (test code = 2209) 10.1 MG/DL PROTEIN, TOTAL (test code = 7.7 G/DL 2228) ALBUMIN (test code = 2201) 5.0 G/DL CALC GLOBULIN (test code = 2.7 G/DL 2240) CALC A/G RATIO (test code = 1.9 RATIO 2234) BILIRUBIN, TOTAL (test code = <0.2 MG/DL 2206) ALKALINE PHOSPHATASE (test 111 U/L code = 2204) AST (test code = 2218) 15 U/L ALT (test code = 2219) 25 U/L TSH, THIRD GENERATION [ADDED]2018-12-01 00:00:00 Test Item Value Reference Range Interpretation Comments TSH, THIRD GENERATION (test code 1.280 UIU/ML = 2821) TSH, THIRD GENERATION [ADDED]2018-12-01 00:00:00 Test Item Value Reference Range Interpretation Comments TSH, THIRD GENERATION (test code 1.280 UIU/ML = 2821) HEMOGLOBIN A1c [ADDED]2018-12-01 00:00:00 Test Item Value Reference Range Interpretation Comments HEMOGLOBIN A1c (test code = 69029) 6.7 % HEMOGLOBIN [id number] 00:00:00 Test Item Value Reference Range Interpretation Comments HEMOGLOBIN A1c (test code = 57024) 5.9 % HEMOGLOBIN [id number] 00:00:00 Test Item Value Reference Range Interpretation Comments HEMOGLOBIN A1c (test code = 06213) 5.9 % LIPID [id number] 00:00:00 Test Item Value Reference Range Interpretation Comments CHOLESTEROL (test code = 2210) 318 MG/DL TRIGLYCERIDES (test code = 2232) 263 MG/DL HDL CHOLESTEROL (test code = 2220) 51 MG/DL CALC LDL CHOL (test code = 2237) 214 MG/DL RISK RATIO LDL/HDL (test code = 4.20 RATIO 2238) COMPREHENSIVE METABOLIC [id number] 00:00:00 Test Item Value Reference Range Interpretation Comments GLUCOSE (test code = 2217) 113 MG/DL BUN (test code = 2208) 18 MG/DL CREATININE (test code = 2214) 0.70 MG/DL eGFR AMER. (test code 111 ML/MIN/1.73 = 23374) eGFR NON- AMER. (test 96 ML/MIN/1.73 code = 60771) CALC BUN/CREAT (test code = 26 RATIO 2235) SODIUM (test code = 2231) 137 MEQ/L POTASSIUM (test code = 2228) 4.3 MEQ/L CHLORIDE (test code = 2215) 99 MEQ/L CARBON DIOXIDE (test code = 24 MEQ/L 2205) CALCIUM (test code = 2209) 9.6 MG/DL PROTEIN, TOTAL (test code = 7.2 G/DL 2228) ALBUMIN (test code = 2201) 4.8 G/DL CALC GLOBULIN (test code = 2.4 G/DL 2240) CALC A/G RATIO (test code = 2.0 RATIO 2234) BILIRUBIN, TOTAL (test code = <0.2 MG/DL 2206) ALKALINE PHOSPHATASE (test 80 U/L code = 2204) AST (test code = 2218) 21 U/L ALT (test code = 2219) 31 U/L [id number] 00:00:00 Test Item Value Reference Range Interpretation Comments TSH, THIRD GENERATION (test code 2.520 UIU/ML = 2821) [id number] 00:00:00 Test Item Value Reference Range Interpretation Comments TSH, THIRD GENERATION (test code 2.520 UIU/ML = 2821) CBC W/AUTO [id number] 00:00:00 Test Item Value Reference Range Interpretation Comments WBC (test code = 1001) 7.1 K/UL RBC (test code = 1002) 4.53 M/UL HEMOGLOBIN (test code = 1003) 13.6 G/DL HEMATOCRIT (test code = 1004) 38.9 % MCV (test code = 1005) 85.9 fL MCH (test code = 1006) 30.0 PG MCHC (test code = 1007) 35.0 G/DL RDW (test code = 1038) 13.4 % NEUTROPHILS (test code = 1008) 52.9 % LYMPHOCYTES (test code = 1010) 39.4 % MONOCYTES (test code = 1011) 6.5 % EOSINOPHILS (test code = 1012) 0.8 % BASOPHILS (test code = 1013) 0.4 % PLATELET COUNT (test code = 1015) 346 K/UL CBC W/AUTO [id number] 00:00:00 Test Item Value Reference Range Interpretation Comments WBC (test code = 1001) 7.1 K/UL RBC (test code = 1002) 4.53 M/UL HEMOGLOBIN (test code = 1003) 13.6 G/DL HEMATOCRIT (test code = 1004) 38.9 % MCV (test code = 1005) 85.9 fL MCH (test code = 1006) 30.0 PG MCHC (test code = 1007) 35.0 G/DL RDW (test code = 1038) 13.4 % NEUTROPHILS (test code = 1008) 52.9 % LYMPHOCYTES (test code = 1010) 39.4 % MONOCYTES (test code = 1011) 6.5 % EOSINOPHILS (test code = 1012) 0.8 % BASOPHILS (test code = 1013) 0.4 % PLATELET COUNT (test code = 1015) 346 K/UL CULTURE, [id number] 00:00:00 Test Item Value Reference Range Interpretation Comments CULTURE, URINE (test SPECIMEN NUMBER: code = 43803) [id number] CULTURE, [id number] 00:00:00 Test Item Value Reference Range Interpretation Comments CULTURE, URINE (test SPECIMEN NUMBER: code = 64412) [id number] LIPID [id number] 00:00:00 Test Item Value Reference Range Interpretation Comments CHOLESTEROL (test code = 2210) 262 MG/DL TRIGLYCERIDES (test code = 2232) 300 MG/DL HDL CHOLESTEROL (test code = 2220) 36 MG/DL CALC LDL CHOL (test code = 2237) 166 MG/DL RISK RATIO LDL/HDL (test code = 4.61 RATIO 2238) HEMOGLOBIN [id number] 00:00:00 Test Item Value Reference Range Interpretation Comments HEMOGLOBIN A1c (test code = 88288) 6.2 % HEMOGLOBIN [id number] 00:00:00 Test Item Value Reference Range Interpretation Comments HEMOGLOBIN A1c (test code = 37236) 6.2 % [id number] 00:00:00 Test Item Value Reference Range Interpretation Comments TSH, THIRD GENERATION (test code 0.988 UIU/ML = 2821) [id number] 00:00:00 Test Item Value Reference Range Interpretation Comments TSH, THIRD GENERATION (test code 0.988 UIU/ML = 2821) BASIC METABOLIC [id number] 00:00:00 Test Item Value Reference Range Interpretation Comments GLUCOSE (test code = 2217) 135 MG/DL BUN (test code = 2208) 25 MG/DL CREATININE (test code = 2214) 0.76 MG/DL eGFR AMER. (test code 101 ML/MIN/1.73 = 61957) eGFR NON- AMER. (test 87 ML/MIN/1.73 code = 93847) SODIUM (test code = 2231) 139 MEQ/L POTASSIUM (test code = 2228) 4.7 MEQ/L CHLORIDE (test code = 2215) 99 MEQ/L CARBON DIOXIDE (test code = 26 MEQ/L 2206) CALCIUM (test code = 2209) 9.4 MG/DL LIPID [id number] 00:00:00 Test Item Value Reference Range Interpretation Comments CHOLESTEROL (test code = 2210) 295 MG/DL TRIGLYCERIDES (test code = 2232) 218 MG/DL HDL CHOLESTEROL (test code = 2220) 46 MG/DL CALC LDL CHOL (test code = 2237) 205 MG/DL RISK RATIO LDL/HDL (test code = 4.47 RATIO 2238) HEMOGLOBIN [id number] 00:00:00 Test Item Value Reference Range Interpretation Comments HEMOGLOBIN A1c (test code = 63563) 7.0 % HEMOGLOBIN [id number] 00:00:00 Test Item Value Reference Range Interpretation Comments HEMOGLOBIN A1c (test code = 28105) 7.0 % [id number] 00:00:00 Test Item Value Reference Range Interpretation Comments TSH, THIRD GENERATION (test code 0.565 UIU/ML = 2821) [id number] 00:00:00 Test Item Value Reference Range Interpretation Comments TSH, THIRD GENERATION (test code 0.565 UIU/ML = 2821) COMPREHENSIVE METABOLIC [id number] 00:00:00 Test Item Value Reference Range Interpretation Comments GLUCOSE (test code = 2217) 109 MG/DL BUN (test code = 2208) 25 MG/DL CREATININE (test code = 2214) 0.78 MG/DL eGFR AMER. (test code 98 ML/MIN/1.73 = 98337) eGFR NON- AMER. (test 84 ML/MIN/1.73 code = 29189) CALC BUN/CREAT (test code = 32 RATIO 2235) SODIUM (test code = 2231) 139 MEQ/L POTASSIUM (test code = 2228) 4.5 MEQ/L CHLORIDE (test code = 2215) 96 MEQ/L CARBON DIOXIDE (test code = 27 MEQ/L 2206) CALCIUM (test code = 2209) 10.0 MG/DL PROTEIN, TOTAL (test code = 7.6 G/DL 2228) ALBUMIN (test code = 2201) 4.9 G/DL CALC GLOBULIN (test code = 2.7 G/DL 2240) CALC A/G RATIO (test code = 1.8 RATIO 2234) BILIRUBIN, TOTAL (test code = <0.2 MG/DL 2206) ALKALINE PHOSPHATASE (test 109 U/L code = 2204) AST (test code = 2218) 18 U/L ALT (test code = 2219) 25 U/L [id number] 00:00:00 Test Item Value Reference Range Interpretation Comments TSH, THIRD GENERATION (test code 0.379 UIU/ML = 2821) [id number] 00:00:00 Test Item Value Reference Range Interpretation Comments TSH, THIRD GENERATION (test code 0.379 UIU/ML = 2821) CULTURE, [id number] 00:00:00 Test Item Value Reference Range Interpretation Comments CULTURE, URINE (test SPECIMEN NUMBER: code = 13080) [id number] ACUTE HEPATITIS [id number] 00:00:00 Test Item Value Reference Range Interpretation Comments HEPATITIS A IgM (test code = NON-REACTIVE 30850) HEPATITIS B CORE IgM (test code NON-REACTIVE = 4644) HEPATITIS B SURF AG (test code = NON-REACTIVE 9409) HEPATITIS C ANTIBODY (test code NON-REACTIVE = 4755) INTERPRETATION HEPATITIS A: (NOTE) (test code = 2552) INTERPRETATION HEPATITIS B: (NOTE) (test code = 45380) INTERPRETATION HEPATITIS C: (NOTE) (test code = 06446) [id number] 00:00:00 Test Item Value Reference Range Interpretation Comments AMYLASE (test code = 2205) 32 U/L [id number] 00:00:00 Test Item Value Reference Range Interpretation Comments LIPASE (test code = 2058) 22 U/L [id number] 00:00:00 Test Item Value Reference Range Interpretation Comments LIPASE (test code = 2058) 22 U/L COMPREHENSIVE METABOLIC [id number] 00:00:00 Test Item Value Reference Range Interpretation Comments GLUCOSE (test code = 2217) 128 MG/DL BUN (test code = 2208) 26 MG/DL CREATININE (test code = 2214) 0.92 MG/DL eGFR AMER. (test code 81 ML/MIN/1.73 = 58823) eGFR NON- AMER. (test 70 ML/MIN/1.73 code = 62062) CALC BUN/CREAT (test code = 28 RATIO 2234) SODIUM (test code = 2231) 138 MEQ/L POTASSIUM (test code = 2228) 4.4 MEQ/L CHLORIDE (test code = 2215) 94 MEQ/L CARBON DIOXIDE (test code = 31 MEQ/L 2205) CALCIUM (test code = 2209) 9.5 MG/DL PROTEIN, TOTAL (test code = 7.3 G/DL 2228) ALBUMIN (test code = 220) 4.7 G/DL CALC GLOBULIN (test code = 2.6 G/DL 2239) CALC A/G RATIO (test code = 1.8 RATIO 2233) BILIRUBIN, TOTAL (test code = <0.2 MG/DL 2206) ALKALINE PHOSPHATASE (test 104 U/L code = 2204) AST (test code = 2218) 24 U/L ALT (test code = 2219) 29 U/L COMPREHENSIVE METABOLIC [id number] 00:00:00 Test Item Value Reference Range Interpretation Comments GLUCOSE (test code = 2217) 121 MG/DL BUN (test code = 2208) 40 MG/DL CREATININE (test code = 2214) 1.48 MG/DL eGFR AMER. (test code 45 ML/MIN/1.73 = 75251) eGFR NON- AMER. (test 39 ML/MIN/1.73 code = 94596) CALC BUN/CREAT (test code = 27 RATIO 2235) SODIUM (test code = 2231) 143 MEQ/L POTASSIUM (test code = 2228) 5.3 MEQ/L CHLORIDE (test code = 2215) 100 MEQ/L CARBON DIOXIDE (test code = 27 MEQ/L 220) CALCIUM (test code = 2209) 9.8 MG/DL PROTEIN, TOTAL (test code = 8.1 G/DL 2228) ALBUMIN (test code = 2201) 5.3 G/DL CALC GLOBULIN (test code = 2.8 G/DL 2240) CALC A/G RATIO (test code = 1.9 RATIO 2234) BILIRUBIN, TOTAL (test code = 0.2 MG/DL 2206) ALKALINE PHOSPHATASE (test 99 U/L code = 2204) AST (test code = 2218) 15 U/L ALT (test code = 2219) 20 U/L [id number] 00:00:00 Test Item Value Reference Range Interpretation Comments TSH, THIRD GENERATION (test code 4.890 UIU/ML = 2821) [id number] 00:00:00 Test Item Value Reference Range Interpretation Comments TSH, THIRD GENERATION (test code 4.890 UIU/ML = 2821) CBC W/AUTO [id number] 00:00:00 Test Item Value Reference Range Interpretation Comments WBC (test code = 1001) 8.3 K/UL RBC (test code = 1002) 4.92 M/UL HEMOGLOBIN (test code = 1003) 14.2 G/DL HEMATOCRIT (test code = 1004) 41.5 % MCV (test code = 1005) 84.3 fL MCH (test code = 1006) 28.9 PG MCHC (test code = 1007) 34.2 G/DL RDW (test code = 1038) 13.0 % NEUTROPHILS (test code = 1008) 54.6 % LYMPHOCYTES (test code = 1010) 37.1 % MONOCYTES (test code = 1011) 6.5 % EOSINOPHILS (test code = 1012) 1.4 % BASOPHILS (test code = 1013) 0.4 % PLATELET COUNT (test code = 1015) 378 K/UL CBC W/AUTO [id number] 00:00:00 Test Item Value Reference Range Interpretation Comments WBC (test code = 1001) 8.3 K/UL RBC (test code = 1002) 4.92 M/UL HEMOGLOBIN (test code = 1003) 14.2 G/DL HEMATOCRIT (test code = 1004) 41.5 % MCV (test code = 1005) 84.3 fL MCH (test code = 1006) 28.9 PG MCHC (test code = 1007) 34.2 G/DL RDW (test code = 1038) 13.0 % NEUTROPHILS (test code = 1008) 54.6 % LYMPHOCYTES (test code = 1010) 37.1 % MONOCYTES (test code = 1011) 6.5 % EOSINOPHILS (test code = 1012) 1.4 % BASOPHILS (test code = 1013) 0.4 % PLATELET COUNT (test code = 1015) 378 K/UL HEMOGLOBIN [id number] 00:00:00 Test Item Value Reference Range Interpretation Comments HEMOGLOBIN A1c (test code = 12792) 6.4 % HEMOGLOBIN [id number] 00:00:00 Test Item Value Reference Range Interpretation Comments HEMOGLOBIN A1c (test code = 13376) 6.4 % [id number] 00:00:00 Test Item Value Reference Range Interpretation Comments TSH (test code = 2821) 5.290 UIU/ML [id number] 00:00:00 Test Item Value Reference Range Interpretation Comments TSH (test code = 2821) 5.290 UIU/ML LIPID [id number] 00:00:00 Test Item Value Reference Range Interpretation Comments CHOLESTEROL (test code = 2210) 261 MG/DL TRIGLYCERIDES (test code = 2232) 165 MG/DL HDL CHOLESTEROL (test code = 2220) 58 MG/DL CALC LDL CHOL (test code = 2237) 170 MG/DL RISK RATIO LDL/HDL (test code = 2.93 RATIO 2238) THYROID II PROFILE (T3U, T4, T7, TSH)[id number] 00:00:00 Test Item Value Reference Range Interpretation Comments T3 UPTAKE (test code = 2817) 32.3 % T4 (THYROXINE) (test code = 5.2 UG/DL 2819) CALCULATED T7 (FTI) (test code = 1.68 2820) TSH (test code = 2821) 1.030 UIU/ML THYROID II PROFILE (T3U, T4, T7, TSH)[id number] 00:00:00 Test Item Value Reference Range Interpretation Comments T3 UPTAKE (test code = 2817) 31.6 % T4 (THYROXINE) (test code = 5.4 UG/DL 2819) CALCULATED T7 (FTI) (test code = 1.71 2820) TSH (test code = 2821) 0.335 UIU/ML COMPREHENSIVE METABOLIC [id number] 00:00:00 Test Item Value Reference Range Interpretation Comments GLUCOSE (test code = 2217) 106 MG/DL BUN (test code = 2208) 23 MG/DL CREATININE (test code = 2214) 0.66 MG/DL eGFR AMER. (test code 114 ML/MIN/1.73 = 83785) eGFR NON- AMER. (test 99 ML/MIN/1.73 code = 92034) CALC BUN/CREAT (test code = 35 RATIO 2235) SODIUM (test code = 2231) 138 MEQ/L POTASSIUM (test code = 2228) 5.1 MEQ/L CHLORIDE (test code = 2215) 96 MEQ/L CARBON DIOXIDE (test code = 27 MEQ/L 2205) CALCIUM (test code = 2209) 9.6 MG/DL PROTEIN, TOTAL (test code = 7.1 G/DL 2228) ALBUMIN (test code = 2201) 4.7 G/DL CALC GLOBULIN (test code = 2.4 G/DL 2240) CALC A/G RATIO (test code = 2.0 RATIO 2234) BILIRUBIN, TOTAL (test code = 0.2 MG/DL 2206) ALKALINE PHOSPHATASE (test 101 U/L code = 2204) AST (test code = 2218) 21 U/L ALT (test code = 2219) 31 U/L COMPREHENSIVE METABOLIC [id number] 00:00:00 Test Item Value Reference Range Interpretation Comments GLUCOSE (test code = 2217) 103 MG/DL BUN (test code = 2208) 15 MG/DL CREATININE (test code = 2214) 0.77 MG/DL eGFR AMER. (test code 101 ML/MIN/1.73 = 00830) eGFR NON- AMER. (test 87 ML/MIN/1.73 code = 28930) CALC BUN/CREAT (test code = 19 RATIO 2235) SODIUM (test code = 2231) 136 MEQ/L POTASSIUM (test code = 2228) 4.7 MEQ/L CHLORIDE (test code = 2215) 94 MEQ/L CARBON DIOXIDE (test code = 27 MEQ/L 2205) CALCIUM (test code = 2209) 9.4 MG/DL PROTEIN, TOTAL (test code = 6.4 G/DL 2228) ALBUMIN (test code = 2201) 4.3 G/DL CALC GLOBULIN (test code = 2.1 G/DL 2239) CALC A/G RATIO (test code = 2.0 RATIO 2233) BILIRUBIN, TOTAL (test code = 0.1 MG/DL 2206) ALKALINE PHOSPHATASE (test 83 U/L code = 2204) AST (test code = 2218) 15 U/L ALT (test code = 2219) 24 U/L THYROID II PROFILE (T3U, T4, T7, TSH)2016-08-22 00:00:00 Test Item Value Reference Range Interpretation Comments T3 UPTAKE (test code = 2817) 35.1 % T4 (THYROXINE) (test code = 3.9 UG/DL 2818) CALCULATED T7 (FTI) (test code = 1.37 0) TSH (test code = 2821) 0.424 UIU/ML CULTURE, [id number] 00:00:00 Test Item Value Reference Range Interpretation Comments CULTURE, URINE (test SPECIMEN NUMBER: code = 67080) [id number] CULTURE, [id number] 00:00:00 Test Item Value Reference Range Interpretation Comments CULTURE, URINE (test SPECIMEN NUMBER: code = 41813) [id number]
--- NOTE | 2021-09-27 15:05 | ER ---
Nurse's Notes [facility] Name: Jaimie Amanda Age: 60 yrs Sex: Female : 1960 Arrival Date: 09/27/2021 Time: 13:48 Bed Waiting Private MD: Diagnosis: ED Course: 09/27 13:48 Patient arrived in ED. as 14:56 [facility] 14:56 Villa Byrd MD is Attending Physician. hilton Administered Medications: No medications were administered Outcome: 15:05 Patient left the ED. ld1 Signatures: René Brown PA PA jmm Martinez, Amelia as Dibbern, Lauren, RN RN ld1
== END 2021-09-27 15:05 | disposition left against medical advice (07) ==
LOC: ER 13:47
DX: Z02.9 Encounter for administrative examinations, unspecified (principal)

== ENCOUNTER 2021-09-29 08:12 | Emergency (ER) | payer OTHER ==
--- OUTSIDE RECORDS SUMMARY | 2021-09-29 08:19 | XMS REPORT | Continuity of Care Document ---
:1960 Author Organization [facility] t Address [address] [place] [address] Care Team Providers Name Role Phone Sharpless Primary Care Physician RADHA SIMPSON Attending Clinician Unavailable CALVIN GENE Attending Clinician Unavailable Doctor Unassigned, Name Attending Clinician Unavailable RAGHU Attending Clinician Unavailable Gramm ASSISTANT BOOKKEEPER, A Attending Clinician Payers Payer Name Policy Type Policy Number Effective Date Expiration Date S flip [facility] STAR [id number] 2017 00:00:00 PLUS Problems This patient has [...] Statins- Propensi Inactiv HMG-CoA ty to e 04-04 Reductas adverse 00:00: e reaction 00 Inhibito to drug rs Hmg-Coa Propensi Inactiv Reductas ty to e 9-24 e adverse 00:00: Inhibito reaction 00 rs to drug NITRO DRUG Active Other-Cmnt Univer s TRANSDER 5-21 ity of MAL 00:00: [place] [facility] ACETAMIN DRUG Active Other-Cmnt 2018-0 Univ ers OPHEN INGREDI 5-21 ity of 00:00: [place] [address] [facility] Hmg-Coa Propensi Inactiv Reductas ty to e 2-28 e adverse 00:00: Inhibito reaction 00 rs to drug Nitrogly Propensi Active 2017-03 cerin ty to 1-08 adverse 00:00: reaction 00 to drug Social History Social Habit Start Date Stop Date Quantity Comments Source Sex Assigned At [facility] Alcohol intake 2016-05-01 2016-05-01 Current [facility] es 00:00:00 00:00:00 non-drinker of Medical Ce nter alcohol (finding) Smoking Status Start Date Stop Date Source Current every day smoker 2016-05-01 00:00:00 [facility] Medications Ordered Filled Start Stop [...] mg capsule 00:00: 00 OXcarbazepi Yes 600mg [id number] Take [address] ne 2-23 [id number] mg by [facility] (TRILEPTAL) 10:23: 3D mouth [...] Goal Plan of Care Note [code = 40307-3] Goal Plan of Care Note [code = 00772-8] Goal Plan of Care Note [code = 99013-5] Goal Plan of Care Note [code = 96391-9] Goal Plan of Care Note [code = 39656-6] Goal Plan of Care Note [code = 87995-0] Goal Plan of Care Note [code = 82913-6] Goal Plan of Care Note [code = 40295-4] Goal Plan of Care Note [code = 89086-5] Goal Plan of Care Note [code = 39123-9] Goal Plan of Care Note [code = 40273-4] Goal Plan of Care Note [code = 91460-1] Goal Plan of Care Note [code = 76422-9] Goal Plan of Care Note [code = 37571-2] Goal Plan of Care Note [code = 38358-6] Goal Plan of Care Note [code = 24297-1] Goal Plan of Care Note [code = 21480-8] Goal Plan of Care Note [code = 49311-9] Goal Plan of Care Note [code = 94242-6] Goal Plan of Care Note [code = 15061-0] Goal Plan of Care Note [code = 82908-9] Goal Plan of Care Note [code = 13293-8] Goal Plan of Care Note [code = 73427-6] Goal Plan of Care Note [code = 99451-2] Goal Plan of Care Note [code = 38546-5] Goal Plan of Care Note [code = 32628-2] Goal Plan of Care Note [code = 65600-8] Goal Plan of Care Note [code = 48939-6] Goal Plan of Care Note [code = 29413-0] Goal Plan of Care Note [code = 28417-9] Goal Plan of Care Note [code = 54658-0] Goal Plan of Care Note [code = 29011-6] Goal Plan of Care Note [code = 99474-0] Goal Plan of Care Note [code = 17985-0] Goal Plan of Care Note [code = 11138-3] Goal Plan of Care Note [code = 40216-9] Goal Plan of Care Note [code = 84284-9] Goal Plan of Care Note [code = 02739-0] Goal Plan of Care Note [code = 56841-6] Goal Plan of Care Note [code = 09485-7] Goal Plan of Care Note [code = 53839-9] Goal Plan of Care Note [code = 72170-0] Goal Plan of Care Note [code = 40231-4] Goal Plan of Care Note [code = 59746-3] Goal Plan of Care Note [code = 54504-4] Goal Plan of Care Note [code = 14837-0] Goal Plan of Care Note [code = 46840-3] Goal Plan of Care Note [code = 66977-8] Goal Plan of Care Note [code = 90071-6] Goal Plan of Care Note [code = 48310-4] Goal Plan of Care Note [code = 32727-2] Encounters Start End Encounter Admission Attending Care Care Encounter Source Date/Time Date/Time Type Type Clinicians Facility Department ID 2021-06-01 Outpatient [facility] [id number] [place] 01:36:29 [id number] [facility] 2021-09-17 2021-09-17 Outpatient [id number] aa [id number] 00:00:00 00:00:00 Visit 935a-4f50 35a-4f50-b -c35h-v4v 77d-c2ba85 [id number] 2020-08-03 2020-08-03 Outpatient MATT VÁSQUEZ [facility] [id number] Univers 10:00:00 10:00:00 MATT SIMPSON [id number] [facility] 2020-08-03 2020-08-03 Outpatient MATT VÁSQUEZ [facility] [id number] [facility] 10:00:00 10:00:00 MATT SIMPSON [facility] 2020-07-25 2020-07-25 Orders Doctor FISH [id number] 00:00:00 00:00:00 Only Unassigned, BK 350.1.13.10 [place] [facility] [id number] 2019-09-26 2019-09-26 Outpatient Bertin KRISHNAMURTHY [facility] [id number]-20 Univers 16:00:00 16:00:00 WALLY Hickman20 [facility] 2019-09-26 2019-09-26 Outpatient R RAGHU, [facility] [id number] Univers 16:00:00 16:00:00 [facility] 2018-10-21 2018-10-21 Telephone Gramm [facility] [id number] 00:00:00 00:00:00 Natacha Nguyen [id number] Ade 4.2.7.2.686 Professio [id number] [facility] [address] Building Results Test Description Test Time Test Comments Results Result Comments Source TSH, THIRD GENERATION 2021-06-27 05:15:49 Test Item Value Reference Range Interpretation Comme nts TSH, THIRD GENERATION (test code = 2821) 2.080 UIU/ML 0.400-4.100 HEMOGLOBIN [id number] 03:46:00 Test Item Value Reference Range Interpretation Comments HEMOGLOBIN A1c (test 6.6 % 4.2-5.6 H [facility] code = 19093) ASSOCIATION [employer] FOR HGB A1C: PREDIABETES/INC REASED [...] UNLESS OTHER PEREZ INDICATED, ALL TESTING PERFORMED [facility] [address] [place] [address] LICENSED MENTAL HEALTH PROFESSIONAL: DIANA RUSS M.D. CLIA NUMBER [id number] CAP ACCREDITATION N O. [id number] LIPID [id number] 02:59:52 Test Item Value Reference Range Interpretation [...] MOREINFORMATION , SEE CLIENT ANNOUNCE MENT AT [email or web address] RISK RATIO LDL/HDL 4.02 RATIO <3.22 H (test code = 2238) LIPID [id number] 00:00:00 Test Item Value Reference Range Interpretation Comments CHOLESTEROL (test code = 2210) 292 MG/DL TRIGLYCERIDES (test code = 2232) 184 MG/DL HDL CHOLESTEROL (test code = 2220) 51 MG/DL CALC LDL CHOL (test code = 2237) 205 MG/DL RISK RATIO LDL/HDL (test code = 4.02 RATIO 2238) HEMOGLOBIN [id number] 00:00:00 Test Item Value Reference Range Interpretation Comments HEMOGLOBIN A1c (test code = 74915) 6.6 % HEMOGLOBIN [id number] 00:00:00 Test Item Value Reference Range Interpretation Comments HEMOGLOBIN A1c (test code = 17529) 6.6 % [id number] 00:00:00 Test Item Value Reference Range Interpretation Comments TSH, THIRD GENERATION (test code 2.080 UIU/ML = 2821) [id number] 00:00:00 Test Item Value Reference Range Interpretation Comments TSH, THIRD GENERATION (test code 2.080 UIU/ML = 2821) LIPID [id number] 00:00:00 Test Item Value Reference Range Interpretation Comments CHOLESTEROL (test code = 2210) 303 MG/DL TRIGLYCERIDES (test code = 2232) 191 MG/DL HDL CHOLESTEROL (test code = 2220) 61 MG/DL CALC LDL CHOL (test code = 2237) 205 MG/DL RISK RATIO LDL/HDL (test code = 3.36 RATIO 2238) [id number] 00:00:00 Test Item Value Reference Range Interpretation Comments TSH, THIRD GENERATION (test code 0.769 UIU/ML = 2821) [id number] 00:00:00 Test Item Value Reference Range Interpretation Comments TSH, THIRD GENERATION (test code 0.769 UIU/ML = 2821) COMPREHENSIVE METABOLIC [id number] 00:00:00 Test Item Value Reference Range Interpretation Comments GLUCOSE (test code = 2217) 131 MG/DL BUN (test code = 2208) 13 MG/DL CREATININE (test code = 2214) 0.65 MG/DL eGFR AMER. (test code 113 ML/MIN/1.73 = 64310) eGFR NON- AMER. (test 97 ML/MIN/1.73 code = 13448) CALC BUN/CREAT (test code = 20 RATIO [...] 2239) CALC A/G RATIO (test code = 1.9 RATIO 4) BILIRUBIN, TOTAL (test code = <0.2 MG/DL 2206) ALKALINE PHOSPHATASE (test 139 U/L code = 2204) AST (test code = 2218) 17 U/L ALT (test code = 2219) 23 U/L HEMOGLOBIN [id number] 00:00:00 Test Item Value Reference Range Interpretation Comments HEMOGLOBIN A1c (test code = 15259) 6.8 % HEMOGLOBIN [id number] 00:00:00 Test Item Value Reference Range Interpretation Comments HEMOGLOBIN A1c (test code = 36029) 6.8 % HEMOGLOBIN [id number] 00:00:00 Test Item Value Reference Range Interpretation Comments HEMOGLOBIN A1c (test code = 67081) 6.6 % HEMOGLOBIN [id number] 00:00:00 Test Item Value Reference Range Interpretation Comments HEMOGLOBIN A1c (test code = 17127) 6.6 % LIPID [id number] 00:00:00 Test Item Value Reference Range Interpretation Comments CHOLESTEROL (test code = 2210) 261 MG/DL TRIGLYCERIDES (test code = 2232) 159 MG/DL HDL CHOLESTEROL (test code = 2220) 82 MG/DL CALC LDL CHOL (test code = 2237) 150 MG/DL RISK RATIO LDL/HDL (test code = 1.83 RATIO 2238) COMPREHENSIVE METABOLIC [id number] 00:00:00 Test Item Value Reference Range Interpretation Comments GLUCOSE (test code = 2217) 144 MG/DL BUN (test code = 2208) 15 MG/DL CREATININE (test code = 2214) 0.85 MG/DL eGFR AMER. (test code 87 ML/MIN/1.73 = 06614) eGFR NON- AMER. (test 75 ML/MIN/1.73 code = 46609) CALC BUN/CREAT (test code = 18 RATIO 2235) SODIUM (test code = 2231) 133 MEQ/L POTASSIUM (test code = 2228) 4.5 MEQ/L CHLORIDE (test code = 2215) 93 MEQ/L CARBON DIOXIDE (test code = 28 MEQ/L 2205) CALCIUM (test code = 2209) 9.7 MG/DL PROTEIN, TOTAL (test code = 7.5 G/DL 2228) ALBUMIN (test code = 2201) 5.0 G/DL CALC GLOBULIN (test code = 2.5 G/DL 2240) CALC A/G RATIO (test code [...] THYROX. BIND. CAPAC. (test code 1.1 = 51144) T4 (THYROXINE) (test code = 4.3 UG/DL 2819) CORRECTED T4 (FTI) (test code = 3.9 UG/DL 2820) TSH, THIRD GENERATION (test 18.900 UIU/ML code = 2821) LIPID [id number] 00:00:00 Test Item Value Reference Range Interpretation Comments CHOLESTEROL (test code = 2210) 267 MG/DL TRIGLYCERIDES (test code = 2232) 137 MG/DL HDL CHOLESTEROL (test code = 2220) 48 MG/DL CALC LDL CHOL (test code = 2237) 192 MG/DL RISK RATIO LDL/HDL (test code = 4.00 RATIO 2238) COMPREHENSIVE METABOLIC [id number] 00:00:00 Test Item Value Reference Range Interpretation Comments GLUCOSE (test code = 2217) 155 MG/DL BUN (test code = 2208) 14 MG/DL CREATININE (test code = 2214) 0.52 MG/DL eGFR AMER. (test code 122 ML/MIN/1.73 = 54564) eGFR NON- AMER. (test 105 ML/MIN/1.73 code = 92774) CALC BUN/CREAT (test code = 27 RATIO [...] THYROX. BIND. CAPAC. (test code 1.0 = 06666) T4 (THYROXINE) (test code = 4.7 UG/DL 2819) CORRECTED T4 (FTI) (test code = 4.7 UG/DL 2820) TSH, THIRD GENERATION (test code 0.201 UIU/ML = 2821) HEMOGLOBIN [id number] 00:00:00 Test Item Value Reference Range Interpretation Comments HEMOGLOBIN A1c (test code = 96242) 6.7 % HEMOGLOBIN [id number] 00:00:00 Test Item Value Reference Range Interpretation Comments HEMOGLOBIN A1c (test code = 45037) 6.7 % SARS-CoV-2 (COVID-19) by RT-PCR (HIGH RISK)2019-09-18 00:00:00 Test Item Value Reference Range Interpretation Comments SARS-CoV-2 INTERPRETATION (test NEGATIVE code = 55927) SOURCE (test code = 18050) NOT SPECIFIED HEMOGLOBIN [id number] 00:00:00 Test Item Value Reference Range Interpretation Comments HEMOGLOBIN A1c (test code = 28123) 6.4 % HEMOGLOBIN [id number] 00:00:00 Test Item Value Reference Range Interpretation Comments HEMOGLOBIN A1c (test code = 68094) 6.4 % COMPREHENSIVE METABOLIC [id number] 00:00:00 Test Item Value Reference Range Interpretation Comments GLUCOSE (test code = 2217) 206 MG/DL BUN (test code = 2208) 23 MG/DL CREATININE (test code = 2214) 0.67 MG/DL eGFR AMER. (test code 112 ML/MIN/1.73 = 62902) eGFR NON- AMER. (test 97 ML/MIN/1.73 code = 11634) CALC BUN/CREAT (test code = 34 RATIO [...] ALT (test code = 2219) 25 U/L [id number] 00:00:00 Test Item Value Reference Range Interpretation Comments TSH, THIRD GENERATION (test code 2.490 UIU/ML = 2821) [id number] 00:00:00 Test Item Value Reference Range Interpretation Comments TSH, THIRD GENERATION (test code 2.490 UIU/ML = 2821) VAGINAL PATHOGENS DNA [id number] 00:00:00 Test Item Value Reference Range Interpretation Comments MARK SPECIES (test code = ) NEGATIVE G. VAGINALIS (test code = ) NEGATIVE T. VAGINALIS (test code = ) NEGATIVE HEMOGLOBIN A1c [ADDED]2018-12-01 00:00:00 Test Item Value Reference Range Interpretation Comments HEMOGLOBIN A1c (test code = 05750) 6.7 % HEMOGLOBIN A1c [ADDED]2018-12-01 00:00:00 Test Item Value Reference Range Interpretation Comments HEMOGLOBIN A1c (test code = 61946) 6.7 % COMPREHENSIVE METABOLIC PANEL [ADDED]2018-12-01 00:00:00 Test Item Value Reference Range Interpretation Comments GLUCOSE (test code = 2217) 136 MG/DL BUN (test code = 2208) 15 MG/DL CREATININE (test code = 2214) 0.64 MG/DL eGFR AMER. (test code 115 ML/MIN/1.73 = 72376) eGFR NON- AMER. (test 99 ML/MIN/1.73 code = 31759) CALC BUN/CREAT (test code = 23 RATIO [...] A/G RATIO (test code = 1.9 RATIO 2233) BILIRUBIN, TOTAL (test code = [...] GENERATION (test code 1.280 UIU/ML = 2821) CBC W/AUTO [id number] 00:00:00 Test Item Value Reference Range Interpretation [...] COUNT (test code = 1015) 346 K/UL HEMOGLOBIN [id number] 00:00:00 Test Item Value Reference Range Interpretation Comments HEMOGLOBIN A1c (test code = 56357) 5.9 % HEMOGLOBIN [id number] 00:00:00 Test Item Value Reference Range Interpretation Comments HEMOGLOBIN A1c (test code = 23601) 5.9 % LIPID [id number] 00:00:00 Test Item Value Reference Range Interpretation Comments CHOLESTEROL (test code = 2210) 318 MG/DL TRIGLYCERIDES (test code = 2232) 263 MG/DL HDL CHOLESTEROL (test code = 2220) 51 MG/DL CALC LDL CHOL (test code = 2237) 214 MG/DL RISK RATIO LDL/HDL (test code = 4.20 RATIO 2238) COMPREHENSIVE METABOLIC [id number] 00:00:00 Test Item Value Reference Range Interpretation Comments GLUCOSE (test code = 2217) 113 MG/DL BUN (test code = 2208) 18 MG/DL CREATININE (test code = 2214) 0.70 MG/DL eGFR AMER. (test code 111 ML/MIN/1.73 = 92441) eGFR NON- AMER. (test 96 ML/MIN/1.73 code = 75158) CALC BUN/CREAT (test code = 26 RATIO [...] CALC GLOBULIN (test code = 2.4 G/DL 0) CALC A/G RATIO (test code = 2.0 RATIO 2234) BILIRUBIN, TOTAL (test code = <0.2 MG/DL 2206) ALKALINE PHOSPHATASE (test 80 U/L code = 2204) AST (test code = 2218) 21 U/L ALT (test code = 2219) 31 U/L [id number] 00:00:00 Test Item Value Reference Range Interpretation Comments TSH, THIRD GENERATION (test code 2.520 UIU/ML = 2821) [id number] 00:00:00 Test Item Value Reference Range Interpretation Comments TSH, THIRD GENERATION (test code 2.520 UIU/ML = 2821) CBC W/AUTO [id number] 00:00:00 Test Item Value Reference Range Interpretation [...] (test code = 1015) 346 K/UL CULTURE, [id number] 00:00:00 Test Item Value Reference Range Interpretation Comments CULTURE, URINE (test SPECIMEN NUMBER: code = 49674) [id number] CULTURE, [id number] 00:00:00 Test Item Value Reference Range Interpretation Comments CULTURE, URINE (test SPECIMEN NUMBER: code = 97498) [id number] BASIC METABOLIC [id number] 00:00:00 Test Item Value Reference Range Interpretation Comments GLUCOSE (test code = 2217) 135 MG/DL BUN (test code = 2208) 25 MG/DL CREATININE (test code = 2214) 0.76 MG/DL eGFR AMER. (test code 101 ML/MIN/1.73 = 56627) eGFR NON- AMER. (test 87 ML/MIN/1.73 code = 52280) SODIUM (test code = 2231) 139 MEQ/L POTASSIUM (test code = 2228) 4.7 MEQ/L CHLORIDE (test code = 2215) 99 MEQ/L CARBON DIOXIDE (test code = 26 MEQ/L 2206) CALCIUM (test code = 2209) 9.4 MG/DL LIPID [id number] 00:00:00 Test Item Value Reference Range Interpretation Comments CHOLESTEROL (test code = 2210) 262 MG/DL TRIGLYCERIDES (test code = 2232) 300 MG/DL HDL CHOLESTEROL (test code = 2220) 36 MG/DL CALC LDL CHOL (test code = 2237) 166 MG/DL RISK RATIO LDL/HDL (test code = 4.61 RATIO 2238) HEMOGLOBIN [id number] 00:00:00 Test Item Value Reference Range Interpretation Comments HEMOGLOBIN A1c (test code = 51657) 6.2 % HEMOGLOBIN [id number] 00:00:00 Test Item Value Reference Range Interpretation Comments HEMOGLOBIN A1c (test code = 69886) 6.2 % [id number] 00:00:00 Test Item Value Reference Range Interpretation Comments TSH, THIRD GENERATION (test code 0.988 UIU/ML = 2821) [id number] 00:00:00 Test Item Value Reference Range Interpretation Comments TSH, THIRD GENERATION (test code 0.988 UIU/ML = 2821) LIPID [id number] 00:00:00 Test Item Value Reference Range Interpretation Comments CHOLESTEROL (test code = 2210) 295 MG/DL TRIGLYCERIDES (test code = 2232) 218 MG/DL HDL CHOLESTEROL (test code = 2220) 46 MG/DL CALC LDL CHOL (test code = 2237) 205 MG/DL RISK RATIO LDL/HDL (test code = 4.47 RATIO 2238) HEMOGLOBIN [id number] 00:00:00 Test Item Value Reference Range Interpretation Comments HEMOGLOBIN A1c (test code = 72244) 7.0 % HEMOGLOBIN [id number] 00:00:00 Test Item Value Reference Range Interpretation Comments HEMOGLOBIN A1c (test code = 67086) 7.0 % [id number] 00:00:00 Test Item Value Reference Range Interpretation Comments TSH, THIRD GENERATION (test code 0.565 UIU/ML = 2821) [id number] 00:00:00 Test Item Value Reference Range Interpretation Comments TSH, THIRD GENERATION (test code 0.565 UIU/ML = 2821) COMPREHENSIVE METABOLIC [id number] 00:00:00 Test Item Value Reference Range Interpretation Comments GLUCOSE (test code = 2217) 109 MG/DL BUN (test code = 2208) 25 MG/DL CREATININE (test code = 2214) 0.78 MG/DL eGFR AMER. (test code 98 ML/MIN/1.73 = 73038) eGFR NON- AMER. (test 84 ML/MIN/1.73 code = 83576) CALC BUN/CREAT (test code = 32 RATIO [...] ALT (test code = 2219) 25 U/L [id number] 00:00:00 Test Item Value Reference Range Interpretation Comments TSH, THIRD GENERATION (test code 0.379 UIU/ML = 2821) [id number] 00:00:00 Test Item Value Reference Range Interpretation Comments TSH, THIRD GENERATION (test code 0.379 UIU/ML = 2821) CULTURE, [id number] 00:00:00 Test Item Value Reference Range Interpretation Comments CULTURE, URINE (test SPECIMEN NUMBER: code = 46581) [id number] COMPREHENSIVE METABOLIC [id number] 00:00:00 Test Item Value Reference Range Interpretation Comments GLUCOSE (test code = 2217) 128 MG/DL BUN (test code = 2208) 26 MG/DL CREATININE (test code = 2214) 0.92 MG/DL eGFR AMER. (test code 81 ML/MIN/1.73 = 52540) eGFR NON- AMER. (test 70 ML/MIN/1.73 code = 58781) CALC BUN/CREAT (test code = 28 RATIO 2235) SODIUM (test code = 2231) 138 MEQ/L POTASSIUM (test code = 2228) 4.4 MEQ/L CHLORIDE (test code = 2215) 94 MEQ/L CARBON DIOXIDE (test code = 31 MEQ/L 220) CALCIUM (test code = 2209) 9.5 MG/DL PROTEIN, TOTAL (test code = 7.3 G/DL 222) ALBUMIN (test code = 2201) 4.7 G/DL CALC GLOBULIN (test code = 2.6 G/DL 2240) CALC A/G RATIO (test code = 1.8 RATIO 2234) BILIRUBIN, TOTAL (test code = <0.2 MG/DL 220) ALKALINE PHOSPHATASE (test 104 U/L code = 2204) AST (test code = 2218) 24 U/L ALT (test code = 2219) 29 U/L ACUTE HEPATITIS [id number] 00:00:00 Test Item Value Reference Range Interpretation Comments HEPATITIS A IgM (test code = NON-REACTIVE 14210) HEPATITIS B CORE IgM (test code NON-REACTIVE = 4644) HEPATITIS B SURF AG (test code = NON-REACTIVE 0765) HEPATITIS C ANTIBODY (test code NON-REACTIVE = 5527) INTERPRETATION HEPATITIS A: (NOTE) (test code = 2552) INTERPRETATION HEPATITIS B: (NOTE) (test code = 82291) INTERPRETATION HEPATITIS C: (NOTE) (test code = 72001) [id number] 00:00:00 Test Item Value Reference Range Interpretation Comments AMYLASE (test code = 2205) 32 U/L [id number] 00:00:00 Test Item Value Reference Range Interpretation Comments LIPASE (test code = 2057) 22 U/L [id number] 00:00:00 Test Item Value Reference Range Interpretation Comments LIPASE (test code = 2058) 22 U/L COMPREHENSIVE METABOLIC [id number] 00:00:00 Test Item Value Reference Range Interpretation Comments GLUCOSE (test code = 2217) 121 MG/DL BUN (test code = 2208) 40 MG/DL CREATININE (test code = 2214) 1.48 MG/DL eGFR AMER. (test code 45 ML/MIN/1.73 = 55245) eGFR NON- AMER. (test 39 ML/MIN/1.73 code = 55840) CALC BUN/CREAT (test code = 27 RATIO 2235) SODIUM (test code = 2231) 143 MEQ/L POTASSIUM (test code = 2228) 5.3 MEQ/L CHLORIDE (test code = 2215) 100 MEQ/L CARBON DIOXIDE (test code = 27 MEQ/L 2206) CALCIUM (test code = 2209) 9.8 MG/DL [...] ALT (test code = 2219) 20 U/L [id number] 00:00:00 Test Item Value Reference Range Interpretation Comments TSH, THIRD GENERATION (test code 4.890 UIU/ML = 2821) [id number] 00:00:00 Test Item Value Reference Range Interpretation Comments TSH, THIRD GENERATION (test code 4.890 UIU/ML = 2821) CBC W/AUTO [id number] 00:00:00 Test Item Value Reference Range Interpretation [...] code = 1015) 378 K/UL CBC W/AUTO [id number] 00:00:00 Test Item Value Reference Range Interpretation [...] (test code = 1015) 378 K/UL HEMOGLOBIN [id number] 00:00:00 Test Item Value Reference Range Interpretation Comments HEMOGLOBIN A1c (test code = 14350) 6.4 % HEMOGLOBIN [id number] 00:00:00 Test Item Value Reference Range Interpretation Comments HEMOGLOBIN A1c (test code = 39617) 6.4 % [id number] 00:00:00 Test Item Value Reference Range Interpretation Comments TSH (test code = 2821) 5.290 UIU/ML [id number] 00:00:00 Test Item Value Reference Range Interpretation Comments TSH (test code = 2821) 5.290 UIU/ML LIPID [id number] 00:00:00 Test Item Value Reference Range Interpretation [...] code = 2821) 0.335 UIU/ML COMPREHENSIVE METABOLIC [id number] 00:00:00 Test Item Value Reference Range Interpretation Comments GLUCOSE (test code = 2217) 106 MG/DL BUN (test code = 2208) 23 MG/DL CREATININE (test code = 2214) 0.66 MG/DL eGFR AMER. (test code 114 ML/MIN/1.73 = 13110) eGFR NON- AMER. (test 99 ML/MIN/1.73 code = 91443) CALC BUN/CREAT (test code = 35 RATIO [...] code = 2219) 31 U/L COMPREHENSIVE METABOLIC [id number] 00:00:00 Test Item Value Reference Range Interpretation Comments GLUCOSE (test code = 2217) 103 MG/DL BUN (test code = 2208) 15 MG/DL CREATININE (test code = 2214) 0.77 MG/DL eGFR AMER. (test code 101 ML/MIN/1.73 = 24962) eGFR NON- AMER. (test 87 ML/MIN/1.73 code = 51713) CALC BUN/CREAT (test code = 19 RATIO [...] (test code = 2821) 0.424 UIU/ML CULTURE, [id number] 00:00:00 Test Item Value Reference Range Interpretation Comments CULTURE, URINE (test SPECIMEN NUMBER: code = 74349) [id number] CULTURE, [id number] 00:00:00 Test Item Value Reference Range Interpretation Comments CULTURE, URINE (test SPECIMEN NUMBER: code = 07797) [id number]
[2021-09-29] MEDS ORDERED: FAMOTIDINE 20 MG/2 ML VIAL IV ONE (08:58)
[2021-09-29] MEDS ORDERED: ONDANSETRON 4 MG/2 ML VIAL ONE (08:58)
[2021-09-29] MEDS ORDERED: NA CHLORIDE 0.9% 500 ML ONE (08:58)
[2021-09-29] MEDS ORDERED: MORPHINE 4 MG/ML SYR ONE ×2 (08:58→09:47)
[2021-09-29 09:01] LABS: Absolute Lymphocytes (CBC) 2.3 K/uL (0.7-4.9); Hematocrit 39.4 % (36.0-45.0); Lymphocytes % 32.5 % (15.3-44.8); MCV 91.4 fL (80-100); RBC Red Blood Cell Count 4.31 M/uL (3.86-4.86)
[2021-09-29 09:11] LABS: Albumin 3.8 g/dL (3.4-5.0); Bilirubin Total 0.2 mg/dL (0.2-1.0); Magnesium 1.6 mg/dL (1.8-2.4); Protein, Total 7.6 g/dL (6.4-8.2)
--- NOTE | 2021-09-29 09:32 | RAD REPORT ---
EXAM DESCRIPTION: RAD - Chest Single View - 09/29/2021 8:55 am CLINICAL HISTORY: ABDOMINAL DISTENTION COMPARISON: <Comparisons> FINDINGS: Lines: None. Lungs: No evidence of edema or pneumonia. Pleural: No significant pleural effusions or pneumothorax. Cardiac: The heart size is within normal limits. Bones: No acute fractures. Other: IMPRESSION: No acute cardiopulmonary disease.
[2021-09-29] MEDS ORDERED: HYDRALAZINE HCL 20 MG/ML VIAL ONE (09:48)
[2021-09-29] MEDS ORDERED: HYDROMORPHONE HCL 1 MG/ML INJ ONE (09:51)
[2021-09-29] MEDS ORDERED: NA CHLORIDE 0.9% 1,000 ML ONE (09:56)
[2021-09-29 10:05] LABS: Urine Blood Trace-intact (Negative); Urine Glucose Negative (Negative); Urine Protein Negative (Negative)
[2021-09-29 10:16] LABS: Urine Bacteria <20 /HPF (<20); Urine RBC <5 /HPF (None Seen)
--- NOTE | 2021-09-29 10:55 | RAD REPORT ---
EXAM DESCRIPTION: US - Abdomen Exam Limited - 09/29/2021 10:48 am CLINICAL HISTORY: ABD PAIN COMPARISON: Abdomen Exam Limited dated 09/06/2021 FINDINGS: The gallbladder demonstrates no gallstones. No pericholecystic fluid or gallbladder wall t hickening. The common bile duct is normal measuring 5 mm. The liver demonstrates no findings of intrahepatic biliary dilatation. IMPRESSION: Negative for cholelithiasis, acute cholecystitis, or biliary ductal dilatation.
--- NOTE | 2021-09-29 11:10 | RAD REPORT ---
EXAM DESCRIPTION: RAD - Abdomen W Erect - 09/29/2021 11:02 am CLINICAL HISTORY: ABD PAIN COMPARISON: Abdomen W Erect dated 09/20/2021; Chest Single View dated 09/29/2021 FINDINGS: Nonobstructive bowel gas pattern. No acute osseous abnormality.Visualized lungs are unrema rkable.No abnormal calcifications. IMPRESSION: Nonobstructive bowel gas pattern.
[2021-09-29] MEDS ORDERED: PANTOPRAZOLE 40 MG INJ ONE (11:39)
[2021-09-29] MEDS ORDERED: cloNIDine HCL 0.1 MG TAB ONE (11:39)
--- NOTE | 2021-09-29 11:53 | ER ---
Nurse's Notes [facility] Name: Jaimie Amanda Age: 60 yrs Sex: Female : 1960 Arrival Date: 09/29/2021 Time: 08:17 Bed 6 Private MD: Diagnosis: Hypo-osmolality and hyponatremia;Abdominal pain, unspecified;Hypertensive heart disease without heart failure Presentation: 09/29 08:20 Chief complaint: Patient states: she started having right upper quadrant pain yesterday ap3 at approx 1500, but it didn't start out "too bad" However, patient reports the pain started getting worse around 0400 this morning. Patient reports pain to be a 9/10 on the pain scale at this time. Coronavirus screen: At this time, the client does not indicate any symptoms associated with coronavirus-19. Ebola Screen: No symptoms or risks identified at this time. Risk Assessment: Do you want to hurt yourself or someone else? Patient reports no desire to harm self or others. Onset of symptoms was September 28, 2021. 08:20 Method Of Arrival: Ambulatory ap3 08:23 Initial Sepsis Screen: Does the patient meet any 2 criteria? No. Patient's initial ap3 sepsis screen is negative. Does the patient have a suspected source of infection? No. Patient's initial sepsis screen is negative. 08:23 Acuity: ZHEN 2 ap3 Triage Assessment: 08:22 General: Appears in no apparent distress. Behavior is calm, cooperative. Pain: ap3 Complains of pain in right upper quadrant Pain does not radiate. Pain currently is 9 out of 10 on a pain scale. Pain began gradually, 1 day ago. Neuro: Level of Consciousness is awake, alert, obeys commands, Oriented to person, place, time, situation, Gait is steady, Speech is normal. Cardiovascular: Patient's skin is warm and dry. Respiratory: Airway is patent Respiratory effort is even, unlabored. GI: Reports upper abdominal pain, Patient currently denies diarrhea, nausea, vomiting. Historical: - Allergies: 08:27 No Known Allergies; ph - Home Meds: 08:22 Clonidine Oral [Active]; Klonopin Oral [Active]; levothyroxine oral [Active]; losartan ap3 Oral [Active]; Metformin Oral [Active]; - PMHx: 08:22 Anxiety; depressive disorder; diabetes mellitus; Hypertensive disorder; Hypothyroidism; ap3 - PSHx: 08:22 Thyroidectomy; ap3 - Immunization history:: Client reports receiving the 2nd dose of the Covid vaccine. - Social history:: Smoking status: Patient reports the use of cigarette tobacco products, smokes one-half pack cigarettes per day. Screenin:24 Abuse screen: Denies threats or abuse. Nutritional screening: No deficits noted. ap3 Tuberculosis screening: No symptoms or risk factors identified. 08:32 Fall Risk None identified. ph Assessment: 09:01 General: Appears in no apparent distress. uncomfortable, Behavior is calm, cooperative, ph appropriate for age, Denies fever, chills. Pain: Complains of pain in right upper quadrant Pain does not radiate. Quality of pain is described as sharp, stabbing. Neuro: Level of Consciousness is awake, alert, obeys commands, Oriented to person, place, time, situation. Cardiovascular: Capillary refill < 3 seconds in bilateral fingers Patient's skin is warm and dry. Respiratory: Airway is patent Respiratory effort is even, unlabored, Respiratory pattern is regular, symmetrical. GI: Abdomen is round Bowel sounds present X 4 quads. Abd is soft Reports upper abdominal pain. Derm: Skin is intact, is healthy with good turgor, Skin is pink, warm \\T\\ dry. Musculoskeletal: Circulation, motion, and sensation intact. Range of motion: intact in all extremities. 09:33 Reassessment: Patient appears in no apparent distress at this time. Patient and/or ph family updated on plan of care and expected duration. Pain level reassessed. Patient is alert, oriented x 3, equal unlabored respirations, skin warm/dry/pink. Pt refusing abdominal CT at this time, states, " Dr Ramirez told me last time that I have had too many cat scans and that I need to not have so many." ERP notified of pt refusal. Pt also requesting more pain medication, states that morphine did not help. 10:00 Reassessment: Patient appears in no apparent distress at this time. Patient and/or ph family updated on plan of care and expected duration. Pain level reassessed. Patient is alert, oriented x 3, equal unlabored respirations, skin warm/dry/pink. Pt continues to c/o abdominal pain, states, " He said he wants to put me in the hospital because my sodium is low but I don't really want to stay. My mom hasn't been feeling good and I don't want her to be at home by herself. 10:46 Reassessment: ultrasound is complete. bm7 11:50 Reassessment: Patient appears in no apparent distress at this time. Patient and/or ph family updated on plan of care and expected duration. Pain level reassessed. Patient is alert, oriented x 3, equal unlabored respirations, skin warm/dry/pink. Pt continues to c/o pain, asks, " Did you give me anything for pain?" Informed pt that she has received both morphine and dilaudid, pt then states, " Well I can't feel anything and the pain is still there." Pt remains hypertensive w/ systolic of 200, ERP notified and verbal order received for clonidine, see MAR. 12:21 Reassessment: Patient appears in no apparent distress at this time. Patient and/or ph family updated on plan of care and expected duration. Pain level reassessed. Patient is alert, oriented x 3, equal unlabored respirations, skin warm/dry/pink. Hospitalist at bedside to speak w/ pt about admission, pt states that she does not want to be admitted to the hospital and wants to go home. 13:08 Reassessment: Patient appears in no apparent distress at this time. Patient and/or ph family updated on plan of care and expected duration. Pain level reassessed. Patient is alert, oriented x 3, equal unlabored respirations, skin warm/dry/pink. Pt states that she still wishes to go home, AMA form signed, assisted pt in calling mother for a ride ome. Vital Signs: 08:20 Pulse 72; Resp 17; Temp 98.4; Pulse Ox 96% ; Weight 72.57 kg; Height 5 ft. 7 in. ap3 (170.18 cm); Pain 9/10; 08:23 BP 209 / 98; ap3 09:33 BP 207 / 96; Pulse 64; Resp 18; Pulse Ox 96% on R/A; ph 10:45 BP 201 / 78; Pulse 59; Resp 18; Pulse Ox 98% on R/A; ph 11:51 BP 192 / 84; Pulse 61; Resp 18; Pulse Ox 99% on R/A; ph 12:27 BP 178 / 76; Pulse 62; Resp 18; Pulse Ox 98% on R/A; ph 13:14 BP 176 / 98; Pulse 67; Resp 18; Temp 97.2; Pulse Ox 99% on R/A; ph 08:20 Body Mass Index 25.06 (72.57 kg, 170.18 cm) ap3 ED Course: 08:17 Patient arrived in ED. as 08:17 Diego Ang PA is PHCP. cp 08:17 Jessica Hansen is Attending Physician. cp 08:23 Triage completed. ap3 08:24 Arm band placed on right wrist. ap3 08:26 Shruthi Donohue, RN is Primary Nurse. ph 08:29 Patient has correct armband on for positive identification. Bed in low position. Call ph light in reach. Side rails up X 1. Pulse ox on. NIBP on. 08:37 Door closed. Noise minimized. Warm blanket given. mb7 08:40 Initial lab(s) drawn, by ca, sent to lab. Inserted saline lock: 22 gauge in right ph antecubital area, using aseptic technique. Blood collected. 08:57 XRAY Chest (1 view) In Process Unspecified. EDMS 10:46 Assisted to bathroom. bm7 10:50 US Abdomen Limited: RUQ In Process Unspecified. EDMS 11:04 XRAY Abdomen With Erect In Process Unspecified. EDMS 11:51 Ez Byrd MD is Hospitalizing Provider. cp 13:01 IV discontinued, intact, bleeding controlled, No redness/swelling at site. Pressure bm7 dressing applied. 13:15 No provider procedures requiring assistance completed. ph Administered Medications: 08:55 Drug: Pepcid (famotidine) 20 mg Route: IVP; Site: right antecubital; ph 12:45 Follow up: Response: No adverse reaction ph 08:55 Drug: NS 0.9% 500 ml Route: IV; Rate: bolus; Site: right antecubital; ph 10:05 Follow up: Response: No adverse reaction; IV Status: Completed infusion; IV Intake: ph 500ml 08:57 Drug: Zofran (Ondansetron) 4 mg Route: IVP; Site: right antecubital; ph 12:45 Follow up: Response: No adverse reaction ph 08:59 Drug: morphine 4 mg Route: IVP; Infused Over: 4 mins; Site: right antecubital; ph 12:43 Follow up: Response: No adverse reaction; Pain is unchanged, physician notified; RASS: ph Alert and Calm (0) 09:48 Drug: Dilaudid (HYDROmorphone) 1 mg Route: IVP; Site: right antecubital; ph 10:15 Follow up: Response: No adverse reaction; Pain is unchanged, physician notified; RASS: ph Alert and Calm (0) 09:50 Drug: hydrALAZINE 10 mg Route: IVP; Site: right antecubital; ph 10:15 Follow up: Response: No adverse reaction; Blood pressure is unchanged ph 10:11 Drug: NS 0.9% 1000 ml Route: IV; Rate: 75 ml/hr; Site: right antecubital; ph 12:46 Follow up: Response: No adverse reaction; IV Status: Infusion continued upon admission ph 11:52 Drug: ProTONIX (pantoprazole) 40 mg Route: IVP; Site: right antecubital; ph 12:41 Follow up: Response: No adverse reaction ph 11:52 Drug: cloNIDine 0.2 mg Route: PO; ph 12:41 Follow up: Response: No adverse reaction; Blood pressure is lowered ph Medication: 08:28 VIS not applicable for this client. ph Intake: 10:05 IV: 500ml; Total: 500ml. ph Outcome: 11:52 Decision to Hospitalize by Provider. cp 13:07 Discharge ordered by . cp 13:15 AMA AMA form signed ph 13:15 Condition: good 13:15 Discharge instructions given to patient, Instructed on discharge instructions, follow up and referral plans. 13:16 Patient left the ED. ph Signatures: Dispatcher [employer] Ada Proctor Patricia RN RN ph Diego Ang PA PA cp Prokisch, Amanda, RN RN [email or web address] Mini Carreon RN RN [address] [place] [id number]
--- NOTE | 2021-09-29 11:53 | EDPHYS ---
Physician Documentation [facility] Name: Jaimie Amanda Age: 60 yrs Sex: Female : 1960 Arrival Date: 09/29/2021 Time: 08:17 Bed 6 Private MD: ED Physician Jessica Hansen HPI: 09/29 08:29 This 60 yrs old Female presents to ER via Ambulatory with complaints of Abdominal Pain. cp 08:30 The patient presents with abdominal pain in the right upper quadrant. Onset: The cp symptoms/episode began/occurred yesterday, and became worse this morning. The symptoms do not radiate. Associated signs and symptoms: Pertinent negatives: blood in stools, chest pain, constipation, diarrhea, fever, vomiting. The symptoms are described as constant. 08:30 Severity of pain: in the emergency department the pain is unchanged despite home cp interventions. Historical: - Allergies: 08:27 No Known Allergies; ph - Home Meds: 08:22 Clonidine Oral [Active]; Klonopin Oral [Active]; levothyroxine oral [Active]; losartan ap3 Oral [Active]; Metformin Oral [Active]; - PMHx: 08:22 Anxiety; depressive disorder; diabetes mellitus; Hypertensive disorder; Hypothyroidism; ap3 - PSHx: 08:22 Thyroidectomy; ap3 - Immunization history:: Client reports receiving the 2nd dose of the Covid vaccine. - Social history:: Smoking status: Patient reports the use of cigarette tobacco products, smokes one-half pack cigarettes per day. ROS: 08:35 Constitutional: Negative for body aches, chills, fever, poor PO intake. cp 08:35 Abdomen/GI: Positive for abdominal pain. cp 08:35 Eyes: Negative for injury, pain, redness, and discharge. cp 08:35 ENT: Negative for drainage from ear(s), ear pain, sore throat, difficulty swallowing, difficulty handling secretions. 08:35 Cardiovascular: Negative for chest pain, edema, palpitations. 08:35 Respiratory: Negative for cough, shortness of breath, wheezing. 08:35 Back: Negative for pain at rest, pain with movement. 08:35 : Negative for urinary symptoms. 08:35 Neuro: Negative for altered mental status, headache, weakness. 08:35 All other systems are negative. Exam: 08:40 Constitutional: The patient appears in no acute distress, alert, awake, cp non-diaphoretic, non-toxic, well developed, well nourished, uncomfortable. 08:40 Head/Face: Normocephalic, atraumatic. cp 08:40 Eyes: Periorbital structures: appear normal, Conjunctiva: normal, no exudate, no cp injection, Sclera: no appreciated abnormality, Lids and lashes: appear normal, bilaterally. 08:40 ENT: External ear(s): are unremarkable, Nose: is normal, Mouth: Lips: moist, Oral mucosa: moist, Posterior pharynx: Airway: no evidence of obstruction, patent. 08:40 Neck: ROM/movement: is normal, is supple, without pain, no range of motions limitations. 08:40 Chest/axilla: Inspection: normal. 08:40 Cardiovascular: Rate: normal, Rhythm: regular, Edema: is not appreciated, JVD: is not appreciated. 08:40 Respiratory: the patient does not display signs of respiratory distress, Respirations: normal, no use of accessory muscles, no retractions, labored breathing, is not present, Breath sounds: are clear throughout, no decreased breath sounds, no stridor, no wheezing. 08:40 Abdomen/GI: Inspection: distension, that is mild, in the abdomen diffusely, Bowel sounds: active, all quadrants, Palpation: soft, in all quadrants, severe abdominal tenderness, in the right upper quadrant, rebound tenderness, is not appreciated, involuntary guarding, is not appreciated. 08:40 Back: CVA tenderness, is absent. 08:40 Neuro: Orientation: to person, place \T\ time. Mentation: able to follow commands, slow to respond, Motor: moves all fours, strength is normal, Sensation: is normal, Gait: is steady, at a normal pace, without difficulty. Vital Signs: 08:20 Pulse 72; Resp 17; Temp 98.4; Pulse Ox 96% ; Weight 72.57 kg; Height 5 ft. 7 in. ap3 (170.18 cm); Pain 9/10; 08:23 BP 209 / 98; ap3 09:33 BP 207 / 96; Pulse 64; Resp 18; Pulse Ox 96% on R/A; ph 10:45 BP 201 / 78; Pulse 59; Resp 18; Pulse Ox 98% on R/A; ph 11:51 BP 192 / 84; Pulse 61; Resp 18; Pulse Ox 99% on R/A; ph 12:27 BP 178 / 76; Pulse 62; Resp 18; Pulse Ox 98% on R/A; ph 13:14 BP 176 / 98; Pulse 67; Resp 18; Temp 97.2; Pulse Ox 99% on R/A; ph 08:20 Body Mass Index 25.06 (72.57 kg, 170.18 cm) ap3 MDM: 08:25 Patient medically screened. 11:25 Data reviewed: vital signs, nurses notes, lab test result(s), EKG, radiologic studies, cp plain films, ultrasound. 11:25 Physician consultation: Ez Byrd MD was called at 11:15, was contacted at 11:15, regarding admission, to the telemetry unit. patient's condition. 13:05 Refusal of service: The patient/guardian displays adequate decision making capability and despite a detailed discussion of alternatives, benefits, risks, and consequences refuses: Admission to the hospital for further work-up and treatment. 09/29 08:30 Order name: CBC with Diff; Complete Time: 09:30 09/29 09:30 Interpretation: Normal except: PLT 283; MPV 7.0; EOSINOPHIL % 7.9; EOSA 0.6. 09/29 08:30 Order name: CMP; Complete Time: 09:30 09/29 09:31 Interpretation: Normal except: NA 123; CL 91; GLUC 129; AST 13; GLOB 3.8; A/G 1.0. 09/29 08:30 Order name: Lipase; Complete Time: 09:30 09/29 08:30 Order name: Urine Microscopic Only; Complete Time: 10:18 cp 09/29 08:30 Order name: Magnesium; Complete Time: 09:30 cp 09/29 09:37 Interpretation: Abnormal: MG 1.6. 09/29 10:05 Order name: Urine Dipstick-Ancillary; Complete Time: 10:18 EDMS 09/29 10:18 Interpretation: Normal except: UBLD Trace-intact. 09/29 08:30 Order name: XRAY Chest (1 view); Complete Time: 09:37 cp 09/29 09:37 Interpretation: Report review. 09/29 10:18 Order name: US Abdomen Limited: RUQ; Complete Time: 11:10 cp 09/29 10:19 Order name: XRAY Abdomen With Erect; Complete Time: 11:17 cp 09/29 11:20 Order name: ETOH Level 09/29 11:20 Order name: UDS 09/29 08:30 Order name: IV Saline Lock; Complete Time: 08:43 cp 09/29 08:30 Order name: Labs collected and sent; Complete Time: 08:43 cp Administered Medications: 08:55 Drug: Pepcid (famotidine) 20 mg Route: IVP; Site: right antecubital; ph 12:45 Follow up: Response: No adverse reaction ph 08:55 Drug: NS 0.9% 500 ml Route: IV; Rate: bolus; Site: right antecubital; ph 10:05 Follow up: Response: No adverse reaction; IV Status: Completed infusion; IV Intake: ph 500ml 08:57 Drug: Zofran (Ondansetron) 4 mg Route: IVP; Site: right antecubital; ph 12:45 Follow up: Response: No adverse reaction ph 08:59 Drug: morphine 4 mg Route: IVP; Infused Over: 4 mins; Site: right antecubital; ph 12:43 Follow up: Response: No adverse reaction; Pain is unchanged, physician notified; RASS: ph Alert and Calm (0) 09:48 Drug: Dilaudid (HYDROmorphone) 1 mg Route: IVP; Site: right antecubital; ph 10:15 Follow up: Response: No adverse reaction; Pain is unchanged, physician notified; RASS: ph Alert and Calm (0) 09:50 Drug: hydrALAZINE 10 mg Route: IVP; Site: right antecubital; ph 10:15 Follow up: Response: No adverse reaction; Blood pressure is unchanged ph 10:11 Drug: NS 0.9% 1000 ml Route: IV; Rate: 75 ml/hr; Site: right antecubital; ph 12:46 Follow up: Response: No adverse reaction; IV Status: Infusion continued upon admission ph 11:52 Drug: ProTONIX (pantoprazole) 40 mg Route: IVP; Site: right antecubital; ph 12:41 Follow up: Response: No adverse reaction ph 11:52 Drug: cloNIDine 0.2 mg Route: PO; ph 12:41 Follow up: Response: No adverse reaction; Blood pressure is lowered ph Disposition Summary: 09/29/21 13:07 Discharge Ordered Location: Home(09/29/21 13:07) cp Problem: an acute exacerbation(09/29/21 13:07) cp Symptoms: have improved(09/29/21 13:07) cp Condition: Stable(09/29/21 13:07) cp Diagnosis - Hypo-osmolality and hyponatremia(09/29/21 13:07) cp - Abdominal pain, unspecified cp - Hypertensive heart disease without heart failure(09/29/21 13:07) cp Followup: cp - With: Private Physician - When: 1 - 2 days - Reason: Recheck today's complaints Discharge Instructions: - Discharge Summary Sheet cp - Abdominal Pain, Adult cp - Hypertension, Adult cp - Hyponatremia cp Forms: - Medication Reconciliation Form cp - Thank You Letter cp - Antibiotic Education cp - Prescription Opioid Use cp Signatures: Dispatcher [employer] EDMS Shruthi Donohue RN RN ph Diego Ang PA PA cp Elsia Gutierrez RN RN ap3 Corrections: (The following items were deleted from the chart) 10:41 08:51 Abdomen Pelvis W Con+CT.RAD.BRZ ordered. EDMS EDMS 13:05 11:52 Inpatient Admission cp cp 13:05 11:52 Ez Byrd cp cp 13:05 11:52 Telemetry/MedSurg (Inpatient) cp cp 13:05 11:52 Stable cp cp 13:05 11:52 an acute exacerbation cp cp 13:05 11:52 have improved cp cp 13:05 11:52 Standard cp cp 13:05 11:52 cp cp 13:05 11:52 Hypo-osmolality and hyponatremia cp cp 13:05 11:52 Hypertensive heart disease without heart failure cp cp
[2021-09-29 11:56] LABS: Barbiturates NEGATIVE (NEGATIVE); Benzodiazepines NEGATIVE (NEGATIVE); Cocaine NEGATIVE (NEGATIVE); METHAMPHETAM NEGATIVE (NEGATIVE); Methadone NEGATIVE (NEGATIVE); Opiates POSITIVE (NEGATIVE); Phencyclidine NEGATIVE (NEGATIVE); THC Cannibis NEGATIVE (NEGATIVE)
--- NOTE | 2021-09-29 13:15 | P.CNS ---
Date of Consult: 09/29/21 Reason for Consult: hyponatremia Requesting Physician: Diego Ang Chief Complaint: abdominal pain History of Present Illness: 60yo F, PMH: HTN, NIDDM2, hypothyroidism (s/p thyroidectomy), and chronic hyponatremia. Presented to ED due to abdominal pain - located in RUQ/epigastrium. Reports drinking plenty of water, no diarrhea, no vomiting. Patient refused CT abd/pelvis. Na noted to be 123; baseline Na runs 127-130. No significant change in her medications recently. given 500 NS bolus in ED and anti-hypertensive medication. Allergies No Known Allergies Allergy (Unverified 08/06/21 03:26) Home Medications: Benztropine Mesylate [Cogentin] 0.5 mg PO BEDTIME 03/10/21 Doxepin HCl [Sinequan] 50 mg PO BEDTIME 03/10/21 Levothyroxine Sodium [Synthroid] 137 mcg PO DAILY 03/10/21 Linaclotide [Linzess] 72 mcg PO DAILYPRN PRN 03/10/21 Losartan/Hydrochlorothiazide [Losartan-Hctz 100-25 mg Tab] 1 each PO DAILY 03/10/21 Metformin HCl [Glucophage*] 500 mg PO BIDWM 03/10/21 Metoclopramide HCl [Reglan] 10 mg PO QID 03/10/21 OXcarbazepine [Trileptal] 2 tab PO DAILY AFTER SUPPER 03/10/21 OXcarbazepine [Trileptal] 600 mg PO DAILY 03/10/21 Omeprazole [Prilosec] 40 mg PO DAILY 03/10/21 Propranolol [Inderal*] 10 mg PO BIDP PRN 03/10/21 Risperidone [Risperdal] 2 mg PO BID 03/10/21 Zolpidem Tartrate [Ambien*] 10 mg PO BEDTIME 03/10/21 cloNIDine HCL [Catapres*] 0.3 mg PO Q8H 03/10/21 clonazePAM [Klonopin*] 1 mg PO TIDP PRN 03/10/21 ondansetron HCL [Zofran] 4 mg PO Q8HP PRN 03/10/21 Sucralfate [Carafate*] 10 ml PO ACS #[id number] ucup 08/07/21 - Past Medical/Surgical History Diabetic: No -: Hepatitis -: Anxiety -: HTN -: Hypothyroidism -: Alcoholic induced seizures -: NIDDM -: Thyroidectomy -: Plastic surgery breast -: hernia repair Psychosocial/ Personal History: Patient lives at home with her mother - Family History Mother Medical History: Hypertension, Diabetes, Cancer Notes: Thyroid, Knee replacement Father Medical History: Heart disease, Hypertension, Diabetes - Social History Smoking Status: Current every day smoker Alcohol use: Yes CD- Drugs: No Caffeine use: Yes Review of Systems 10-point ROS is otherwise unremarkable Physical Examination General: Alert, In no apparent distress, Oriented x3 HEENT: EOMI, Sclerae nonicteric Neck: Supple, No LAD Respiratory: Clear to auscultation bilaterally, Normal air movement Cardiovascular: Regular rate/rhythm, Edema (b/l lower extremity) Gastrointestinal: Soft and benign, Non-distended, No tenderness Musculoskeletal: No contractures, No erythema Integumentary: No rashes, No significant lesion Neurological: Normal speech, Normal affect Laboratory Data (last 24 hrs) 09/29/21 08:40: Sodium 123 L, Potassium 4.0, BUN 10, Creatinine 0.61, Glucose 129 H, Magnesium 1.6 L, Total Bilirubin 0.2, AST 13 L, ALT 28, Alkaline Phosphatase 117, Lipase 121 09/29/21 08:40: WBC 7.1, Hgb 13.7, Hct 39.4, Plt Count 283 D Physician Review Additional Text: Problem List acute on chronic hyponatremia HTN NIDDM2 hypothyroidism at time of my exam, patient states she is feeling better and does not want to be admitted to the hospital. Her mother is not feeling well and she wants to check on her. Na is not too far off her baseline, I think this is a resonable request. She understands risks of going home with low sodium, states she has been dealing with this for a long time, knows warning signs and won't hesitate to come back to the ED can consider repeating Na level again prior to discharge from ER Follow up with PCP this week Time Spent Managing Pts care (In Minutes): 55
[2021-09-29 13:47] VITALS: BP 176/98; TEMP 97.2; O2SAT 99
== END 2021-09-29 13:16 | disposition home or self-care (01) ==
LOC: ER 08:12
DX: E87.1 Hypo-osmolality and hyponatremia (principal); I11.9 Hypertensive heart disease without heart failure; E11.9 Type 2 diabetes mellitus without complications; I10 Essential (primary) hypertension; E03.9 Hypothyroidism, unspecified; F41.9 Anxiety disorder, unspecified; F32.A Depression, unspecified; F17.210 Nicotine dependence, cigarettes, uncomplicated; Z83.3 Family history of diabetes mellitus; Z82.49 Family history of ischemic heart disease and other diseases of the circulatory system
CPT/HCPCS: 96361; 85025; 36415; 80320; 83735; 83690; 80053; 80307; 74019; 71045; 76705; 96375; 96374; 99284; J0360; C9113; J1170; J7040; J7030; J2405; J3490; 81003; 81015

== ENCOUNTER 2021-09-30 08:52 | Emergency (ER) | payer OTHER ==
--- OUTSIDE RECORDS SUMMARY | 2021-09-30 08:57 | XMS REPORT | Continuity of Care Document ---
:1960 Author Organization [facility] t Address [address] [place] [address] Care Team Providers Name Role Phone Sharpless Primary Care Physician RADHA SIMPSON Attending Clinician Unavailable CALVIN GENE Attending Clinician Unavailable Doctor Unassigned, Name Attending Clinician Unavailable RAGHU Attending Clinician Unavailable Gramm MERCHANDISE APPRAISER, A Attending Clinician Payers Payer Name Policy Type Policy Number Effective Date Expiration Date S flip [facility] [id number] 2017 00:00:00 PLUS Problems This patient has [...] ers OPHEN INGREDI 5-21 ity of 00:00: [place] [address] [facility] Hmg-[employer]a Propensi Inactiv Reductas ty to e 2-28 e adverse 00:00: Inhibito reaction 00 rs to drug Nitrogly Propensi Active 2017-03 cerin ty to 1-08 adverse 00:00: reaction 00 to drug Social History Social Habit Start Date Stop Date Quantity Comments Source Sex Assigned At [facility] Alcohol intake 2016-05-01 2016-05-01 Current [facility] [place] es 00:00:00 00:00:00 non-drinker of Medical Ce nter alcohol (finding) Smoking Status Start Date Stop Date Source Current every day smoker 2016-05-01 00:00:00 [facility] Medications Ordered Filled Start Stop Current Ordering [...] mg capsule 00:00: 00 OXcarbazepi Yes 600mg [id number] Take [address] ne 2-23 [id number] mg by [facility] (TRILEPTAL) 10:23: 3D mouth [...] Goal Plan of Care Note [code = 57232-8] Goal Plan of Care Note [code = 60911-7] Goal Plan of Care Note [code = 15612-6] Goal Plan of Care Note [code = 96084-7] Goal Plan of Care Note [code = 30362-7] Goal Plan of Care Note [code = 04275-4] Goal Plan of Care Note [code = 14825-2] Goal Plan of Care Note [code = 52127-5] Goal Plan of Care Note [code = 79617-2] Goal Plan of Care Note [code = 58841-4] Goal Plan of Care Note [code = 55444-0] Goal Plan of Care Note [code = 29880-8] Goal Plan of Care Note [code = 33842-2] Goal Plan of Care Note [code = 46304-9] Goal Plan of Care Note [code = 98216-9] Goal Plan of Care Note [code = 70970-0] Goal Plan of Care Note [code = 70051-1] Goal Plan of Care Note [code = 43820-5] Goal Plan of Care Note [code = 34897-8] Goal Plan of Care Note [code = 81006-0] Goal Plan of Care Note [code = 73160-3] Goal Plan of Care Note [code = 03009-5] Goal Plan of Care Note [code = 80632-8] Goal Plan of Care Note [code = 53591-2] Goal Plan of Care Note [code = 29686-1] Goal Plan of Care Note [code = 24817-7] Goal Plan of Care Note [code = 06370-3] Goal Plan of Care Note [code = 11576-6] Goal Plan of Care Note [code = 54326-5] Goal Plan of Care Note [code = 72800-9] Goal Plan of Care Note [code = 89214-0] Goal Plan of Care Note [code = 73018-0] Goal Plan of Care Note [code = 61775-3] Goal Plan of Care Note [code = 45550-5] Goal Plan of Care Note [code = 35212-9] Goal Plan of Care Note [code = 44478-7] Goal Plan of Care Note [code = 30778-7] Goal Plan of Care Note [code = 60473-6] Goal Plan of Care Note [code = 87195-9] Goal Plan of Care Note [code = 69094-6] Goal Plan of Care Note [code = 84497-4] Goal Plan of Care Note [code = 43580-9] Goal Plan of Care Note [code = 38410-5] Goal Plan of Care Note [code = 72014-1] Goal Plan of Care Note [code = 60037-1] Goal Plan of Care Note [code = 51894-5] Goal Plan of Care Note [code = 29932-3] Goal Plan of Care Note [code = 81480-4] Goal Plan of Care Note [code = 18303-3] Goal Plan of Care Note [code = 78848-2] Goal Plan of Care Note [code = 33555-5] Encounters Start End Encounter Admission Attending Care Care Encounter Source Date/Time Date/Time Type Type Clinicians Facility Department ID 2021-06-01 Outpatient ON LICENSE OF [facility] [id number] [place] 01:36:29 [id number] [facility] 2021-09-17 2021-09-17 Outpatient [id number] 00:00:00 00:00:00 Visit [id number]-[id number]-[id number]-[id number] -[id number]-n3j [id number] 2020-08-03 2020-08-03 Outpatient MATT VÁSQUEZ [facility] [id number] Univers 10:00:00 10:00:00 MATT SIMPSON [id number] [facility] 2020-08-03 2020-08-03 Outpatient MATT VÁSQUEZ [facility] [id number] [facility] 10:00:00 10:00:00 MATT SIMPSON [facility] 2020-07-25 2020-07-25 Orders Doctor FISH [id number] 00:00:00 00:00:00 Only Unassigned, BK 350.1.13.10 [place] [facility] [id number] 2019-09-26 2019-09-26 Outpatient Bertin KRISHNAMURTHY [facility] [id number]-20 Univers 16:00:00 16:00:00 WALLY Hickman20 [facility] 2019-09-26 2019-09-26 Outpatient R RAGHU, [facility] [id number] Univers 16:00:00 16:00:00 [facility] 2018-10-21 2018-10-21 Telephone Gramm [facility] [id number] 00:00:00 00:00:00 Natacha Nguyen 350.1.13.10 Ade 4.2.7.2.686 Professio [id number] [facility] [address] Building Results Test Description Test Time Test Comments Results Result Comments Source TSH, THIRD GENERATION 2021-06-27 05:15:49 Test Item Value Reference Range Interpretation Comme nts TSH, THIRD GENERATION (test code = 2821) 2.080 UIU/ML 0.400-4.100 HEMOGLOBIN [id number] 03:46:00 Test Item Value Reference Range Interpretation Comments HEMOGLOBIN A1c (test 6.6 % 4.2-5.6 H [facility] code = 04992) ASSOCIATION [employer] FOR HGB A1C: PREDIABETES/INC REASED [...] UNLESS OTHER PEREZ INDICATED, ALL TESTING PERFORMED [facility] [address] [place] [address] MANAGER HVAC: DIANA RUSS M.D. CLIA NUMBER [id number] CAP ACCREDITATION N O. [id number] LIPID [id number] 02:59:52 Test Item Value Reference Range Interpretation [...] MOREINFORMATION , SEE CLIENT ANNOUNCE MENT AT [email or web address] RISK RATIO LDL/HDL 4.02 RATIO <3.22 H (test code = 2238) [id number] 00:00:00 Test Item Value Reference Range Interpretation Comments TSH, THIRD GENERATION (test code 2.080 UIU/ML = 2821) [id number] 00:00:00 Test Item Value Reference Range Interpretation Comments TSH, THIRD GENERATION (test code 2.080 UIU/ML = 2821) LIPID [id number] 00:00:00 Test Item Value Reference Range Interpretation Comments CHOLESTEROL (test code = 2210) 292 MG/DL TRIGLYCERIDES (test code = 2232) 184 MG/DL HDL CHOLESTEROL (test code = 2220) 51 MG/DL CALC LDL CHOL (test code = 2237) 205 MG/DL RISK RATIO LDL/HDL (test code = 4.02 RATIO 2238) HEMOGLOBIN [id number] 00:00:00 Test Item Value Reference Range Interpretation Comments HEMOGLOBIN A1c (test code = 22018) 6.6 % HEMOGLOBIN [id number] 00:00:00 Test Item Value Reference Range Interpretation Comments HEMOGLOBIN A1c (test code = 79281) 6.6 % HEMOGLOBIN [id number] 00:00:00 Test Item Value Reference Range Interpretation Comments HEMOGLOBIN A1c (test code = 70214) 6.8 % LIPID [id number] 00:00:00 Test Item Value Reference Range Interpretation Comments CHOLESTEROL (test code = 2210) 303 MG/DL TRIGLYCERIDES (test code = 2232) 191 MG/DL HDL CHOLESTEROL (test code = 2220) 61 MG/DL CALC LDL CHOL (test code = 2237) 205 MG/DL RISK RATIO LDL/HDL (test code = 3.36 RATIO 2238) [id number] 00:00:00 Test Item Value Reference Range Interpretation Comments TSH, THIRD GENERATION (test code 0.769 UIU/ML = 2821) [id number] 00:00:00 Test Item Value Reference Range Interpretation Comments TSH, THIRD GENERATION (test code 0.769 UIU/ML = 2821) COMPREHENSIVE METABOLIC [id number] 00:00:00 Test Item Value Reference Range Interpretation Comments GLUCOSE (test code = 2217) 131 MG/DL BUN (test code = 2208) 13 MG/DL CREATININE (test code = 2214) 0.65 MG/DL eGFR AMER. (test code 113 ML/MIN/1.73 = 22221) eGFR NON- AMER. (test 97 ML/MIN/1.73 code = 75646) CALC BUN/CREAT (test code = 20 RATIO 2235) SODIUM (test code = 2231) 131 MEQ/L POTASSIUM (test code = 2228) 4.5 MEQ/L CHLORIDE (test code = 2215) 92 MEQ/L CARBON DIOXIDE (test code = 24 MEQ/L 220) CALCIUM (test code = 2209) [...] (test code = 2219) 23 U/L HEMOGLOBIN [id number] 00:00:00 Test Item Value Reference Range Interpretation Comments HEMOGLOBIN A1c (test code = 96027) 6.8 % HEMOGLOBIN [id number] 00:00:00 Test Item Value Reference Range Interpretation Comments HEMOGLOBIN A1c (test code = 19588) 6.6 % HEMOGLOBIN [id number] 00:00:00 Test Item Value Reference Range Interpretation Comments HEMOGLOBIN A1c (test code = 58090) 6.6 % LIPID [id number] 00:00:00 Test Item Value Reference Range Interpretation Comments CHOLESTEROL (test code = 2210) 261 MG/DL TRIGLYCERIDES (test code = 2232) 159 MG/DL HDL CHOLESTEROL (test code = 2220) 82 MG/DL CALC LDL CHOL (test code = 2237) 150 MG/DL RISK RATIO LDL/HDL (test code = 1.83 RATIO 2238) COMPREHENSIVE METABOLIC [id number] 00:00:00 Test Item Value Reference Range Interpretation Comments GLUCOSE (test code = 2217) 144 MG/DL BUN (test code = 2208) 15 MG/DL CREATININE (test code = 2214) 0.85 MG/DL eGFR AMER. (test code 87 ML/MIN/1.73 = 67802) eGFR NON- AMER. (test 75 ML/MIN/1.73 code = 82214) CALC BUN/CREAT (test code = 18 RATIO [...] THYROX. BIND. CAPAC. (test code 1.1 = 60568) T4 (THYROXINE) (test code = 4.3 UG/DL 2819) CORRECTED T4 (FTI) (test code = 3.9 UG/DL 2820) TSH, THIRD GENERATION (test 18.900 UIU/ML code = 2821) LIPID [id number] 00:00:00 Test Item Value Reference Range Interpretation Comments CHOLESTEROL (test code = 2210) 267 MG/DL TRIGLYCERIDES (test code = 2232) 137 MG/DL HDL CHOLESTEROL (test code = 2220) 48 MG/DL CALC LDL CHOL (test code = 2237) 192 MG/DL RISK RATIO LDL/HDL (test code = 4.00 RATIO 2238) COMPREHENSIVE METABOLIC [id number] 00:00:00 Test Item Value Reference Range Interpretation Comments GLUCOSE (test code = 2217) 155 MG/DL BUN (test code = 2208) 14 MG/DL CREATININE (test code = 2214) 0.52 MG/DL eGFR AMER. (test code 122 ML/MIN/1.73 = 75006) eGFR NON- AMER. (test 105 ML/MIN/1.73 code = 81444) CALC BUN/CREAT (test code = 27 RATIO [...] THYROX. BIND. CAPAC. (test code 1.0 = 92927) T4 (THYROXINE) (test code = 4.7 UG/DL 2819) CORRECTED T4 (FTI) (test code = 4.7 UG/DL 2820) TSH, THIRD GENERATION (test code 0.201 UIU/ML = 2821) HEMOGLOBIN [id number] 00:00:00 Test Item Value Reference Range Interpretation Comments HEMOGLOBIN A1c (test code = 37326) 6.7 % HEMOGLOBIN [id number] 00:00:00 Test Item Value Reference Range Interpretation Comments HEMOGLOBIN A1c (test code = 78051) 6.7 % SARS-CoV-2 (COVID-19) by RT-PCR (HIGH RISK)2019-09-18 00:00:00 Test Item Value Reference Range Interpretation Comments SARS-CoV-2 INTERPRETATION (test NEGATIVE code = 23736) SOURCE (test code = 08410) NOT SPECIFIED [id number] 00:00:00 Test Item Value Reference Range Interpretation Comments TSH, THIRD GENERATION (test code 2.490 UIU/ML = 2821) [id number] 00:00:00 Test Item Value Reference Range Interpretation Comments TSH, THIRD GENERATION (test code 2.490 UIU/ML = 2821) HEMOGLOBIN [id number] 00:00:00 Test Item Value Reference Range Interpretation Comments HEMOGLOBIN A1c (test code = 62664) 6.4 % HEMOGLOBIN [id number] 00:00:00 Test Item Value Reference Range Interpretation Comments HEMOGLOBIN A1c (test code = 57517) 6.4 % COMPREHENSIVE METABOLIC [id number] 00:00:00 Test Item Value Reference Range Interpretation Comments GLUCOSE (test code = 2217) 206 MG/DL BUN (test code = 2208) 23 MG/DL CREATININE (test code = 2214) 0.67 MG/DL eGFR AMER. (test code 112 ML/MIN/1.73 = 95428) eGFR NON- AMER. (test 97 ML/MIN/1.73 code = 13144) CALC BUN/CREAT (test code = 34 RATIO [...] ALT (test code = 2219) 25 U/L VAGINAL PATHOGENS DNA [id number] 00:00:00 Test Item Value Reference Range Interpretation Comments MARK SPECIES (test code = ) NEGATIVE G. VAGINALIS (test code = ) NEGATIVE T. VAGINALIS (test code = ) NEGATIVE HEMOGLOBIN A1c [ADDED]2018-12-01 00:00:00 Test Item Value Reference Range Interpretation Comments HEMOGLOBIN A1c (test code = 49539) 6.7 % HEMOGLOBIN A1c [ADDED]2018-12-01 00:00:00 Test Item Value Reference Range Interpretation Comments HEMOGLOBIN A1c (test code = 39852) 6.7 % COMPREHENSIVE METABOLIC PANEL [ADDED]2018-12-01 00:00:00 Test Item Value Reference Range Interpretation Comments GLUCOSE (test code = 2217) 136 MG/DL BUN (test code = 2208) 15 MG/DL CREATININE (test code = 2214) 0.64 MG/DL eGFR AMER. (test code 115 ML/MIN/1.73 = 48244) eGFR NON- AMER. (test 99 ML/MIN/1.73 code = 31197) CALC BUN/CREAT (test code = 23 RATIO [...] code 1.280 UIU/ML = 2821) CBC W/AUTO [id number] 00:00:00 Test Item Value Reference Range Interpretation [...] (test code = 1015) 346 K/UL HEMOGLOBIN [id number] 00:00:00 Test Item Value Reference Range Interpretation Comments HEMOGLOBIN A1c (test code = 97529) 5.9 % HEMOGLOBIN [id number] 00:00:00 Test Item Value Reference Range Interpretation Comments HEMOGLOBIN A1c (test code = 71209) 5.9 % LIPID [id number] 00:00:00 Test Item Value Reference Range Interpretation Comments CHOLESTEROL (test code = 2210) 318 MG/DL TRIGLYCERIDES (test code = 2232) 263 MG/DL HDL CHOLESTEROL (test code = 2220) 51 MG/DL CALC LDL CHOL (test code = 2237) 214 MG/DL RISK RATIO LDL/HDL (test code = 4.20 RATIO 2238) COMPREHENSIVE METABOLIC [id number] 00:00:00 Test Item Value Reference Range Interpretation Comments GLUCOSE (test code = 2217) 113 MG/DL BUN (test code = 2208) 18 MG/DL CREATININE (test code = 2214) 0.70 MG/DL eGFR AMER. (test code 111 ML/MIN/1.73 = 83479) eGFR NON- AMER. (test 96 ML/MIN/1.73 code = 23987) CALC BUN/CREAT (test code = 26 RATIO [...] ALT (test code = 2219) 31 U/L [id number] 00:00:00 Test Item Value Reference Range Interpretation Comments TSH, THIRD GENERATION (test code 2.520 UIU/ML = 2821) [id number] 00:00:00 Test Item Value Reference Range Interpretation Comments TSH, THIRD GENERATION (test code 2.520 UIU/ML = 2821) CBC W/AUTO [id number] 00:00:00 Test Item Value Reference Range Interpretation [...] (test code = 1015) 346 K/UL CULTURE, [id number] 00:00:00 Test Item Value Reference Range Interpretation Comments CULTURE, URINE (test SPECIMEN NUMBER: code = 16836) [id number] CULTURE, [id number] 00:00:00 Test Item Value Reference Range Interpretation Comments CULTURE, URINE (test SPECIMEN NUMBER: code = 78366) [id number] BASIC METABOLIC [id number] 00:00:00 Test Item Value Reference Range Interpretation Comments GLUCOSE (test code = 2217) 135 MG/DL BUN (test code = 2208) 25 MG/DL CREATININE (test code = 2214) 0.76 MG/DL eGFR AMER. (test code 101 ML/MIN/1.73 = 04081) eGFR NON- AMER. (test 87 ML/MIN/1.73 code = 06737) SODIUM (test code = 2231) 139 MEQ/L POTASSIUM (test code = 2228) 4.7 MEQ/L CHLORIDE (test code = 2215) 99 MEQ/L CARBON DIOXIDE (test code = 26 MEQ/L 2206) CALCIUM (test code = 2209) 9.4 MG/DL LIPID [id number] 00:00:00 Test Item Value Reference Range Interpretation Comments CHOLESTEROL (test code = 2210) 262 MG/DL TRIGLYCERIDES (test code = 2232) 300 MG/DL HDL CHOLESTEROL (test code = 2220) 36 MG/DL CALC LDL CHOL (test code = 2237) 166 MG/DL RISK RATIO LDL/HDL (test code = 4.61 RATIO 2238) HEMOGLOBIN [id number] 00:00:00 Test Item Value Reference Range Interpretation Comments HEMOGLOBIN A1c (test code = 12428) 6.2 % HEMOGLOBIN [id number] 00:00:00 Test Item Value Reference Range Interpretation Comments HEMOGLOBIN A1c (test code = 43265) 6.2 % [id number] 00:00:00 Test Item Value Reference Range Interpretation Comments TSH, THIRD GENERATION (test code 0.988 UIU/ML = 2821) [id number] 00:00:00 Test Item Value Reference Range Interpretation Comments TSH, THIRD GENERATION (test code 0.988 UIU/ML = 2821) LIPID [id number] 00:00:00 Test Item Value Reference Range Interpretation Comments CHOLESTEROL (test code = 2210) 295 MG/DL TRIGLYCERIDES (test code = 2232) 218 MG/DL HDL CHOLESTEROL (test code = 2220) 46 MG/DL CALC LDL CHOL (test code = 2237) 205 MG/DL RISK RATIO LDL/HDL (test code = 4.47 RATIO 2238) HEMOGLOBIN [id number] 00:00:00 Test Item Value Reference Range Interpretation Comments HEMOGLOBIN A1c (test code = 14285) 7.0 % HEMOGLOBIN [id number] 00:00:00 Test Item Value Reference Range Interpretation Comments HEMOGLOBIN A1c (test code = 90069) 7.0 % [id number] 00:00:00 Test Item Value Reference Range Interpretation Comments TSH, THIRD GENERATION (test code 0.565 UIU/ML = 2821) [id number] 00:00:00 Test Item Value Reference Range Interpretation Comments TSH, THIRD GENERATION (test code 0.565 UIU/ML = 2821) COMPREHENSIVE METABOLIC [id number] 00:00:00 Test Item Value Reference Range Interpretation Comments GLUCOSE (test code = 2217) 109 MG/DL BUN (test code = 2208) 25 MG/DL CREATININE (test code = 2214) 0.78 MG/DL eGFR AMER. (test code 98 ML/MIN/1.73 = 21248) eGFR NON- AMER. (test 84 ML/MIN/1.73 code = 97919) CALC BUN/CREAT (test code = 32 RATIO [...] ALT (test code = 2219) 25 U/L [id number] 00:00:00 Test Item Value Reference Range Interpretation Comments TSH, THIRD GENERATION (test code 0.379 UIU/ML = 2821) [id number] 00:00:00 Test Item Value Reference Range Interpretation Comments TSH, THIRD GENERATION (test code 0.379 UIU/ML = 2821) CULTURE, [id number] 00:00:00 Test Item Value Reference Range Interpretation Comments CULTURE, URINE (test SPECIMEN NUMBER: code = 35408) [id number] COMPREHENSIVE METABOLIC [id number] 00:00:00 Test Item Value Reference Range Interpretation Comments GLUCOSE (test code = 2217) 128 MG/DL BUN (test code = 2208) 26 MG/DL CREATININE (test code = 2214) 0.92 MG/DL eGFR AMER. (test code 81 ML/MIN/1.73 = 59677) eGFR NON- AMER. (test 70 ML/MIN/1.73 code = 01103) CALC BUN/CREAT (test code = 28 RATIO [...] code = 2219) 29 U/L ACUTE HEPATITIS [id number] 00:00:00 Test Item Value Reference Range Interpretation Comments HEPATITIS A IgM (test code = NON-REACTIVE 47320) HEPATITIS B CORE IgM (test code NON-REACTIVE = 4644) HEPATITIS B SURF AG (test code = NON-REACTIVE 0882) HEPATITIS C ANTIBODY (test code NON-REACTIVE = 4454) INTERPRETATION HEPATITIS A: (NOTE) (test code = 2552) INTERPRETATION HEPATITIS B: (NOTE) (test code = 65671) INTERPRETATION HEPATITIS C: (NOTE) (test code = 23145) [id number] 00:00:00 Test Item Value Reference Range Interpretation Comments AMYLASE (test code = 2205) 32 U/L [id number] 00:00:00 Test Item Value Reference Range Interpretation Comments LIPASE (test code = 2057) 22 U/L [id number] 00:00:00 Test Item Value Reference Range Interpretation Comments LIPASE (test code = 2058) 22 U/L [id number] 00:00:00 Test Item Value Reference Range Interpretation Comments TSH, THIRD GENERATION (test code 4.890 UIU/ML = 2821) [id number] 00:00:00 Test Item Value Reference Range Interpretation Comments TSH, THIRD GENERATION (test code 4.890 UIU/ML = 2821) COMPREHENSIVE METABOLIC [id number] 00:00:00 Test Item Value Reference Range Interpretation Comments GLUCOSE (test code = 2217) 121 MG/DL BUN (test code = 2208) 40 MG/DL CREATININE (test code = 2214) 1.48 MG/DL eGFR AMER. (test code 45 ML/MIN/1.73 = 07228) eGFR NON- AMER. (test 39 ML/MIN/1.73 code = 79722) CALC BUN/CREAT (test code = 27 RATIO 2235) SODIUM (test code = 2231) 143 MEQ/L POTASSIUM (test code = 2228) 5.3 MEQ/L CHLORIDE (test code = 2215) 100 MEQ/L CARBON DIOXIDE (test code = 27 MEQ/L 2205) CALCIUM (test code = 2209) 9.8 MG/DL PROTEIN, TOTAL (test code = 8.1 G/DL 2228) ALBUMIN (test code = 2201) 5.3 G/DL CALC GLOBULIN (test code = 2.8 G/DL 0) CALC A/G RATIO (test code = 1.9 RATIO 4) BILIRUBIN, TOTAL (test code = 0.2 MG/DL 2206) ALKALINE PHOSPHATASE (test 99 U/L code = 2204) AST (test code = 2218) 15 U/L ALT (test code = 2219) 20 U/L CBC W/AUTO [id number] 00:00:00 Test Item Value Reference Range Interpretation [...] code = 1015) 378 K/UL CBC W/AUTO [id number] 00:00:00 Test Item Value Reference Range Interpretation [...] (test code = 1015) 378 K/UL HEMOGLOBIN [id number] 00:00:00 Test Item Value Reference Range Interpretation Comments HEMOGLOBIN A1c (test code = 13489) 6.4 % HEMOGLOBIN [id number] 00:00:00 Test Item Value Reference Range Interpretation Comments HEMOGLOBIN A1c (test code = 66586) 6.4 % [id number] 00:00:00 Test Item Value Reference Range Interpretation Comments TSH (test code = 2821) 5.290 UIU/ML [id number] 00:00:00 Test Item Value Reference Range Interpretation Comments TSH (test code = 2821) 5.290 UIU/ML LIPID [id number] 00:00:00 Test Item Value Reference Range Interpretation [...] TSH (test code = 2821) 1.030 UIU/ML COMPREHENSIVE METABOLIC [id number] 00:00:00 Test Item Value Reference Range Interpretation Comments GLUCOSE (test code = 2217) 106 MG/DL BUN (test code = 2208) 23 MG/DL CREATININE (test code = 2214) 0.66 MG/DL eGFR AMER. (test code 114 ML/MIN/1.73 = 49272) eGFR NON- AMER. (test 99 ML/MIN/1.73 code = 15472) CALC BUN/CREAT (test code = 35 RATIO 2235) SODIUM (test code = 2231) 138 MEQ/L POTASSIUM (test code = 2228) 5.1 MEQ/L CHLORIDE (test code = 2215) 96 MEQ/L CARBON DIOXIDE (test code = 27 MEQ/L 2206) CALCIUM (test code = 2209) 9.6 MG/DL PROTEIN, TOTAL (test code = 7.1 G/DL 2229) ALBUMIN (test code = 2201) 4.7 G/DL CALC GLOBULIN (test code = 2.4 G/DL 2240) CALC A/G RATIO (test code = 2.0 RATIO 2234) BILIRUBIN, TOTAL (test code = 0.2 MG/DL 2207) ALKALINE PHOSPHATASE (test 101 U/L code = 2204) AST (test code = 2218) 21 U/L ALT (test code = 2219) 31 U/L THYROID II PROFILE (T3U, T4, T7, TSH)[id number] 00:00:00 Test Item Value Reference Range Interpretation Comments T3 UPTAKE (test code = 2817) 31.6 % T4 (THYROXINE) (test code = 5.4 UG/DL 2819) CALCULATED T7 (FTI) (test code = 1.71 2820) TSH (test code = 2821) 0.335 UIU/ML COMPREHENSIVE METABOLIC [id number] 00:00:00 Test Item Value Reference Range Interpretation Comments GLUCOSE (test code = 2217) 103 MG/DL BUN (test code = 2208) 15 MG/DL CREATININE (test code = 2214) 0.77 MG/DL eGFR AMER. (test code 101 ML/MIN/1.73 = 27160) eGFR NON- AMER. (test 87 ML/MIN/1.73 code = 36250) CALC BUN/CREAT (test code = 19 RATIO [...] (test code = 2821) 0.424 UIU/ML CULTURE, [id number] 00:00:00 Test Item Value Reference Range Interpretation Comments CULTURE, URINE (test SPECIMEN NUMBER: code = 46608) [id number] CULTURE, [id number] 00:00:00 Test Item Value Reference Range Interpretation Comments CULTURE, URINE (test SPECIMEN NUMBER: code = 18708) [id number]
[2021-09-30 12:15] LABS: Urine Blood Negative (Negative); Urine Glucose Negative (Negative); Urine Protein Negative (Negative); Urine pH 5.5 (5.0-7.0)
--- NOTE | 2021-09-30 14:49 | ER ---
Nurse's Notes [facility] Name: Jaimie Amanda Age: 60 yrs Sex: Female : 1960 Arrival Date: 09/30/2021 Time: 09:00 Bed Waiting Private MD: Diagnosis: Presentation: 09/30 09:12 Chief complaint: Patient states: "i still have the same pain from yesterday on my right ap3 side and nauseated." Patient reports she was evaluated in the ED yesterday for the same complaint. Coronavirus screen: At this time, the client does not indicate any symptoms associated with coronavirus-19. Ebola Screen: No symptoms or risks identified at this time. Initial Sepsis Screen: Does the patient meet any 2 criteria? No. Patient's initial sepsis screen is negative. Does the patient have a suspected source of infection? No. Patient's initial sepsis screen is negative. Risk Assessment: Do you want to hurt yourself or someone else? Patient reports no desire to harm self or others. Onset of symptoms was September 29, 2021. 09:12 Method Of Arrival: Ambulatory ap3 09:12 Acuity: ZHEN 3 ap3 Triage Assessment: 09:15 General: Appears in no apparent distress. Behavior is calm, cooperative. Pain: ap3 Complains of pain in right upper quadrant and right lower quadrant Also complains of nausea. Neuro: Level of Consciousness is awake, alert, obeys commands, Oriented to person, place, time, situation, Speech is normal. Cardiovascular: Patient's skin is warm and dry. Respiratory: Airway is patent Respiratory effort is even, unlabored, Respiratory pattern is regular, symmetrical. GI: Reports nausea. Historical: - Allergies: 09:15 No Known Allergies; ap3 - PMHx: 09:15 Anxiety; depressive disorder; diabetes mellitus; Hypertensive disorder; Hypothyroidism; ap3 - PSHx: 09:15 Thyroidectomy; ap3 - Immunization history:: Client reports receiving the 2nd dose of the Covid vaccine. - Social history:: Smoking status: Patient reports the use of cigarette tobacco products, smokes one-half pack cigarettes per day. Screenin:16 Abuse screen: Denies threats or abuse. Nutritional screening: No deficits noted. ap3 Nutritional screening: No deficits noted. Tuberculosis screening: No symptoms or risk factors identified. Vital Signs: 09:12 BP 151 / 86; Pulse 96; Resp 18; Temp 97.9; Pulse Ox 98% ; Weight 72.57 kg; Height 5 ft. ap3 7 in. (170.18 cm); Pain 9/10; 09:12 Body Mass Index 25.06 (72.57 kg, 170.18 cm) ap3 ED Course: 09:00 Patient arrived in ED. ap3 09:15 Triage completed. ap3 09:16 Arm band placed on right wrist. ap3 11:30 Patient's name was called from ER lobby. No response. Unable to locate patient. Will jl7 disposition as left without being seen by a provider. 13:00 Patient's name was called from ER lobby. No response. Unable to locate patient. Will jl7 disposition as left without being seen by a provider. 14:47 Patient's name was called from ER lobby. No response. Unable to locate patient. Will jl7 disposition as left without being seen by a provider. Administered Medications: No medications were administered Outcome: 14:48 Patient left the ED. jl7 Signatures: Arianna Jackson RN RN jl7 Elisa Gutierrez RN RN ap3
[2021-09-30 14:58] VITALS: BP 151/86; TEMP 97.9; O2SAT 98
== END 2021-09-30 14:48 | disposition left against medical advice (07) ==
LOC: ER 08:52
DX: Z53.21 Procedure and treatment not carried out due to patient leaving prior to being seen by health care provider (principal)
CPT/HCPCS: 81003; 99281

== ENCOUNTER 2021-10-02 09:45 | Emergency (ER) | payer OTHER ==
[2021-10-02 11:48] LABS: Absolute Lymphocytes (CBC) 1.9 K/uL (0.7-4.9); Hematocrit 43.5 % (36.0-45.0); Lymphocytes % 19.5 % (15.3-44.8); MCV 91.6 fL (80-100); MPV 6.8 fL (7.6-11.3); RBC Red Blood Cell Count 4.76 M/uL (3.86-4.86)
[2021-10-02] MEDS ORDERED: PROMETHAZINE INJ 25 MG/ML AMP ONE (11:55)
[2021-10-02 12:15] LABS: Albumin 4.4 g/dL (3.4-5.0); Bilirubin Total 0.3 mg/dL (0.2-1.0); Protein, Total 8.7 g/dL (6.4-8.2)
[2021-10-02] MEDS ORDERED: NA CHLORIDE 0.9% 1,000 ML ONE (13:03)
--- NOTE | 2021-10-02 13:10 | ER ---
Nurse's Notes [facility] Name: Jaimie Amanda Age: 60 yrs Sex: Female : 1960 Arrival Date: 10/02/2021 Time: 10:09 Bed DIS5 Private MD: Diagnosis: Hyponatremia;Nausea with vomiting, unspecified Presentation: 10/02 11:02 Chief complaint: Patient states: n/v/d abd pain X 3 days , fever , headache yesterday. iw Coronavirus screen: Client presents with at least one sign or symptom that may indicate coronavirus-19. Ebola Screen: Patient negative for fever greater than or equal to 101.5 degrees Fahrenheit, and additional compatible Ebola Virus Disease symptoms Patient denies exposure to infectious person. Patient denies travel to an Ebola-affected area in the 21 days before illness onset. No symptoms or risks identified at this time. Initial Sepsis Screen: Does the patient meet any 2 criteria? No. Patient's initial sepsis screen is negative. Does the patient have a suspected source of infection? No. Patient's initial sepsis screen is negative. Risk Assessment: Do you want to hurt yourself or someone else? Patient reports no desire to harm self or others. Onset of symptoms was September 30, 2021. 11:02 Method Of Arrival: Ambulatory iw 11:02 Acuity: ZHEN 3 iw Triage Assessment: 11:15 General: Appears in no apparent distress. iw Historical: - PMHx: 11:03 Anxiety; depressive disorder; diabetes mellitus; Hypertensive disorder; Hypothyroidism; iw - PSHx: 11:03 Thyroidectomy; iw Screenin:30 Abuse screen: Denies threats or abuse. Denies injuries from another. Nutritional iw screening: No deficits noted. Tuberculosis screening: No symptoms or risk factors identified. Fall Risk Assessment: 11:05 General: Appears in no apparent distress. Behavior is calm, cooperative. Pain: iw Complains of pain in abdomen diffusely. Neuro: Level of Consciousness is awake, alert, obeys commands, Oriented to person, place, time, situation, Moves all extremities. Cardiovascular: Patient's skin is warm and dry. Respiratory: Respiratory effort is even, unlabored, Respiratory pattern is regular. Derm: Skin is intact, is healthy with good turgor. Musculoskeletal: Range of motion: intact in all extremities. Vital Signs: 11:02 BP 154 / 83; Pulse 89; Resp 16; Temp 97.6; Pulse Ox 98% on R/A; iw ED Course: 10:09 Patient arrived in ED. iw 10:47 Paras Naik PA is PHCP. jr8 10:47 Diego Ramirez MD is Attending Physician. jr8 11:03 Triage completed. iw 11:24 Arm band placed on. iw 11:29 SARS-COV-2 RT PCR (Document "Date of Onset" if Symptomatic) Sent. kc6 11:29 Influenza Screen (A Sent. kc6 11:29 Flu Sent. kc6 11:40 Initial lab(s) drawn, by ut, sent to lab. Inserted saline lock: 24 gauge in left hand, 3 using aseptic technique. Blood collected. 12:00 Therese Logan, RN is Primary Nurse. iw Administered Medications: 11:45 Drug: Promethazine 12.5 mg Route: IVP; Site: left hand; iw 12:15 Follow up: Response: No adverse reaction iw 12:59 Drug: NS 0.9% 1000 ml Route: IV; Rate: 1000 ml; Site: left hand; iw 14:00 Follow up: IV Status: Completed infusion iw 13:25 Drug: hydrOXYzine 50 mg Route: PO; jg9 13:45 Follow up: Response: No adverse reaction iw Outcome: 13:09 Discharge ordered by . jr8 13:55 Patient left the ED. iw Signatures: Therese Logan, RN CATY Paras Naik PA PA jr8 Cass Gray 3 Viridiana Diehl RN RN jg9 Kelly Beavers kc6
--- NOTE | 2021-10-02 13:10 | EDPHYS ---
Physician Documentation [facility] Name: Jaimie Amanda Age: 60 yrs Sex: Female : 1960 Arrival Date: 10/02/2021 Time: 10: Bed DIS5 Private MD: ED Physician Diego Ramirez HPI: 10/02 10:50 This 60 yrs old Female presents to ER via Unassigned with complaints of Nausea/Vomiting.jr8 10:50 The patient presents to the emergency department with nausea, vomiting, diarrhea, jr8 abdominal pain. Onset: The symptoms/episode began/occurred suddenly, 3 day(s) ago. The symptoms are aggravated by nothing. The symptoms are alleviated by nothing. Associated signs and symptoms: Pertinent positives: fever, headache. Severity of symptoms: At their worst the symptoms were moderate in the emergency department the symptoms are unchanged. The patient has experienced similar episodes in the past, multiple times. The patient has not recently seen a physician. Historical: - PMHx: 11:03 Anxiety; depressive disorder; diabetes mellitus; Hypertensive disorder; Hypothyroidism; iw - PSHx: 11:03 Thyroidectomy; iw ROS: 10:50 Eyes: Negative for injury, pain, redness, and discharge, ENT: Negative for injury, jr8 pain, and discharge, Neck: Negative for injury, pain, and swelling, Cardiovascular: Negative for chest pain, palpitations, and edema, Respiratory: Negative for shortness of breath, cough, wheezing, and pleuritic chest pain, Back: Negative for injury and pain, MS/Extremity: Negative for injury and deformity, Skin: Negative for injury, rash, and discoloration. 10:50 Abdomen/GI: Positive for abdominal pain, nausea, vomiting, and diarrhea. 10:50 Neuro: Positive for headache. Exam: 10:50 Constitutional: This is a well developed, well nourished patient who is awake, alert, jr8 and in no acute distress. ENT: Nares patent. No nasal discharge, no septal abnormalities noted. Tympanic membranes are normal and external auditory canals are clear. Oropharynx with no redness, swelling, or masses, exudates, or evidence of obstruction, uvula midline. Mucous membranes moist. Neck: Trachea midline, no thyromegaly or masses palpated, and no cervical lymphadenopathy. Supple, full range of motion without nuchal rigidity, or vertebral point tenderness. No Meningismus. Cardiovascular: Regular rate and rhythm with a normal S1 and S2. No gallops, murmurs, or rubs. Normal PMI, no JVD. No pulse deficits. Respiratory: Lungs have equal breath sounds bilaterally, clear to auscultation and percussion. No rales, rhonchi or wheezes noted. No increased work of breathing, no retractions or nasal flaring. Back: No spinal tenderness. No costovertebral tenderness. Full range of motion. Skin: Warm, dry with normal turgor. Normal color with no rashes, no lesions, and no evidence of cellulitis. MS/ Extremity: Pulses equal, no cyanosis. Neurovascular intact. Full, normal range of motion. Neuro: Awake and alert, GCS 15, oriented to person, place, time, and situation. Cranial nerves II-XII grossly intact. Motor strength 5/5 in all extremities. Sensory grossly intact. Cerebellar exam normal. Normal gait. 10:50 Abdomen/GI: Inspection: abdomen appears normal, Bowel sounds: active, all quadrants, Palpation: soft, in all quadrants, mild abdominal tenderness, in the abdomen diffusely, mass, is not appreciated, rebound tenderness, is not appreciated, voluntary guarding, is not appreciated, involuntary guarding, is not appreciated, no appreciated organomegaly, Indicators: McBurney's point is not tender, Marrero's sign is negative, Liver: tenderness, is not appreciated. Vital Signs: 11:02 BP 154 / 83; Pulse 89; Resp 16; Temp 97.6; Pulse Ox 98% on R/A; iw MDM: 10:[address] [facility] 13:08 Data reviewed: vital signs, nurses notes, lab test result(s), and as a result, I will jr8 discharge patient. Data interpreted: Pulse oximetry: on room air is 98 %. Interpretation: normal. Counseling: I had a detailed discussion with the patient and/or guardian regarding: the historical points, exam findings, and any diagnostic results supporting the discharge/admit diagnosis, lab results, the need for outpatient follow up, a family practitioner, to return to the emergency department if symptoms worsen or persist or if there are any questions or concerns that arise at home. Special discussion: Based on the patient's Hx, exam, and Dx evaluation, there is no indication for emergent surgery or inpatient Tx. It is understood by the patient/guardian that if the Sx's persist or worsen they need to return immediately for re-evaluation. ED course: Patient overall has had improvement. Counseled her on labs and need to f/u with continued chronic hyponatremia. If worse to come back. Patient good with plan . 10/02 10:47 Order name: CBC with Diff; Complete Time: 12:14 [facility] 10/02 10:47 Order name: CMP; Complete Time: 12:40 8 10/02 10:47 Order name: Lipase; Complete Time: 12:40 8 10/02 10:52 Order name: Influenza Screen (A ; Complete Time: 12:40 EDMS 10/02 10:47 Order name: IV Saline Lock; Complete Time: 11:45 8 10/02 10:47 Order name: Labs collected and sent; Complete Time: 11:45 8 10/02 10:55 Order name: SARS-COV-2 RT PCR (Document "Date of Onset" if Symptomatic); Complete Time: 13:10 Administered Medications: 11:45 Drug: Promethazine 12.5 mg Route: IVP; Site: left hand; iw 12:15 Follow up: Response: No adverse reaction iw 12:59 Drug: NS 0.9% 1000 ml Route: IV; Rate: 1000 ml; Site: left hand; iw 14:00 Follow up: IV Status: Completed infusion iw 13:25 Drug: hydrOXYzine 50 mg Route: PO; jg9 13:45 Follow up: Response: No adverse reaction iw Disposition Summary: 10/02/21 13:09 Discharge Ordered Location: Home [facility] Problem: new jr8 Symptoms: have improved jr8 Condition: Stable jr8 Diagnosis - Hyponatremia jr8 - Nausea with vomiting, unspecified jr8 Followup: jr8 - With: Private Physician - When: 2 - 3 days - Reason: Recheck today's complaints, Continuance of care, Re-evaluation by your physician Discharge Instructions: - Discharge Summary Sheet jr8 - Hyponatremia jr8 - Nausea and Vomiting, Adult jr8 Forms: - Medication Reconciliation Form jr8 - Thank You Letter jr8 - Antibiotic Education jr8 - Prescription Opioid Use jr8 Prescriptions: - promethazine 25 mg Oral Tablet - take 1 tablet by ORAL route every 6 hours As needed; 20 tablet; Refills: 0, jr8 Product Selection Permitted Signatures: Dispatcher [employer] Therese Coello, RN RN iw Paras Naik PA PA jr8 Viridiana Diehl RN RN jg9
[2021-10-02] MEDS ORDERED: hydrOXYzine HCL 25 MG TAB ONE (13:33)
[2021-10-02 17:14] VITALS: BP 154/83; TEMP 97.6; O2SAT 98
== END 2021-10-02 13:55 | disposition home or self-care (01) ==
LOC: ER 09:45
DX: E87.1 Hypo-osmolality and hyponatremia (principal); R11.2 Nausea with vomiting, unspecified; R10.84 Generalized abdominal pain; R50.9 Fever, unspecified; R51.9 Headache, unspecified; Z20.822 Contact with and (suspected) exposure to COVID-19
CPT/HCPCS: 96361; 85025; 36415; 83690; 80053; 87804 ×2; 96374; 99283; U0003; J2550; J7030

== ENCOUNTER 2021-10-04 06:06 | Emergency (ER) | payer OTHER ==
[2021-10-04] MEDS ORDERED: NA CHLORIDE 0.9% 1,000 ML ONE (07:21)
[2021-10-04] MEDS ORDERED: ONDANSETRON 4 MG/2 ML VIAL ONE (07:21)
--- NOTE | 2021-10-04 07:26 | RAD REPORT ---
EXAM DESCRIPTION: CT - Head Brain Wo Cont - 10/04/2021 7:09 am CLINICAL HISTORY: Headache, new or worsening COMPARISON: <Comparisons> TECHNIQUE: All CT scans are performed using dose optimization technique as appropriate and may inclu de automated exposure control or mA/KV adjustment according to patient size. FINDINGS: No intracranial hemorrhage, hydrocephalus or extra-axial fluid collection.No areas of brai n edema or evidence of midline shift. Cerebral atrophy. The paranasal sinuses and mastoids are clear. The calvarium is intact. IMPRESSION: No acute intracranial abnormality.
[2021-10-04 07:43] LABS: Absolute Lymphocytes (CBC) 1.7 K/uL (0.7-4.9); Hematocrit 37.1 % (36.0-45.0); Lymphocytes % 15.1 % (15.3-44.8); MCV 90.8 fL (80-100); MPV 6.6 fL (7.6-11.3); RBC Red Blood Cell Count 4.08 M/uL (3.86-4.86)
[2021-10-04] MEDS ORDERED: MORPHINE 4 MG/ML SYR ONE (08:15)
[2021-10-04 08:36] LABS: Potassium 3.3 mmol/L (3.5-5.1)
[2021-10-04 08:37] LABS: Albumin 3.9 g/dL (3.4-5.0); Bilirubin Total 0.2 mg/dL (0.2-1.0); Protein, Total 7.6 g/dL (6.4-8.2)
[2021-10-04 08:48] LABS: Urine Blood Negative (Negative); Urine Glucose Trace (Negative); Urine Protein 1+ (Negative); Urine pH 6.5 (5.0-7.0)
--- NOTE | 2021-10-04 08:55 | ER ---
Nurse's Notes [facility] Name: Jaimie Amanda Age: 60 yrs Sex: Female : 1960 Arrival Date: 10/04/2021 Time: 06:08 Bed 12 Private MD: Diagnosis: Abdominal pain, Generalized;Vomiting;Hypokalemia Presentation: 10/04 06:44 Chief complaint: Patient states: "I am nauseated, my stomach hurts really bad.". vc1 Coronavirus screen: Vaccine status: Patient reports receiving the 2nd dose of the covid vaccine. Doesn't remember muscle pain, nausea, vomiting. Client presents with at least one sign or symptom that may indicate coronavirus-19. Standard/surgical mask placed on the client. Provider contacted for isolation considerations. Ebola Screen: No symptoms or risks identified at this time. Risk Assessment: Do you want to hurt yourself or someone else? Patient reports no desire to harm self or others. Onset of symptoms was October 03, 2021. 06:44 Method Of Arrival: Ambulatory vc1 06:44 Acuity: ZHEN 3 vc1 06:51 Initial Sepsis Screen: Does the patient meet any 2 criteria? HR > 90 bpm. No. Patient's vc1 initial sepsis screen is negative. Does the patient have a suspected source of infection? Yes: Acute abdominal pain. Triage Assessment: 06:46 General: Appears in no apparent distress. uncomfortable, Behavior is anxious, flat. vc1 Pain: Complains of pain in abdomen Pain does not radiate. Pain currently is 10 out of 10 on a pain scale. Neuro: Level of Consciousness is awake. Cardiovascular: Capillary refill Patient's skin is warm and dry. Respiratory: No deficits noted. GI: Reports lower abdominal pain, upper abdominal pain, diarrhea, nausea, tolerance of fluids, vomiting. : No deficits noted. Derm: No deficits noted. Musculoskeletal: No deficits noted. Historical: - Allergies: 06:46 No Known Allergies; vc1 - Home Meds: 06:46 Clonidine Oral [Active]; Klonopin Oral [Active]; levothyroxine oral [Active]; losartan vc1 Oral [Active]; Metformin Oral [Active]; - PMHx: 06:46 Anxiety; depressive disorder; diabetes mellitus; Hypertensive disorder; Hypothyroidism; vc1 - PSHx: 06:46 Thyroidectomy; vc1 - Immunization history:: Adult Immunizations up to date, Client reports receiving the 2nd dose of the Covid vaccine. - Social history:: Smoking status: Patient reports the use of cigarette tobacco products, smokes one-half pack cigarettes per day. - Family history:: not pertinent. - Hospitalizations: : No recent hospitalization is reported. Screenin:48 Abuse screen: Denies threats or abuse. Nutritional screening: No deficits noted. vc1 Tuberculosis screening: No symptoms or risk factors identified. Fall Risk None identified. Assessment: 07:41 General: Appears in no apparent distress. comfortable, well groomed, well developed, bm7 Behavior is calm, cooperative, anxious, Smells of alcohol. Pain: Denies pain. Neuro: Level of Consciousness is awake, alert, obeys commands, Oriented to person, place, time, situation, Speech is slurred, Pupils are PERRLA, Reports dizziness, since yesterday. Cardiovascular: No deficits noted. Denies chest pain, shortness of breath. Respiratory: No deficits noted. GI: Abdomen is round Abd is soft and non tender X 4 quads. Reports nausea. : No deficits noted. No signs and/or symptoms were reported regarding the genitourinary system. EENT: No deficits noted. No signs and/or symptoms were reported regarding the EENT system. Oral mucosa is moist. Derm: No deficits noted. No signs and/or symptoms reported regarding the dermatologic system. Musculoskeletal: No deficits noted. No signs and/or symptoms reported regarding the musculoskeletal system. 07:58 Reassessment: Patient and/or family updated on plan of care and expected duration. Pain bm7 level reassessed. Patient is alert, oriented x 3, equal unlabored respirations, skin warm/dry/pink. 08:13 Reassessment: patient states she is hurting all over still. ERP notified. New orders bm7 obtained. 08:52 Reassessment: ERP at bedside to assess. bm7 09:30 Reassessment: Patient and/or family updated on plan of care and expected duration. Pain bm7 level reassessed. 10:26 Reassessment: AMBULATED TO CARE ADMINISTRATIVE TECH TO CALL MOTHER FOR EMERY WHEEL WORKER AND THEN TO THE TOILET bm7 TO VOID. Vital Signs: 06:44 Weight 72.57 kg; Height 5 ft. 7 in. (170.18 cm); Pain 10/10; vc1 06:49 BP 187 / 99; Pulse 106; Resp 18; Temp 97.9; Pulse Ox 96% ; vc1 07:50 BP 168 / 74; Pulse 90; Resp 16; Pulse Ox 98% on R/A; bm7 09:30 BP 180 / 72; Pulse 90; Resp 16; Pulse Ox 97% on R/A; Pain 8/10; bm7 10:55 BP 182 / 74; Pulse 86; Resp 16; Pulse Ox 97% on R/A; Pain 2/10; bm7 06:44 Body Mass Index 25.06 (72.57 kg, 170.18 cm) vc1 ED Course: 06:08 Patient arrived in ED. bp1 06:13 Villa Byrd MD is Attending Physician. rn 06:46 Triage completed. vc1 06:48 Arm band placed on left wrist. vc1 07:04 Madhavi eYboah is Primary Nurse. tw5 07:11 CT Head Brain wo Cont In Process Unspecified. EDMS 07:12 Mini Carreon, RN is Primary Nurse. bm7 07:22 Attending Physician role handed off by Villa Byrd MD hannah 07:22 Diego Ramirez MD is Attending Physician. hannah 07:39 No apparent distress. Resting quietly. Awaiting lab results. bm7 07:39 Patient has correct armband on for positive identification. Bed in low position. Call 7 light in reach. Side rails up X 1. Client placed on continuous cardiac and pulse oximetry monitoring. NIBP monitoring applied. receiving inspector on. Warm blanket given. 07:39 Initial lab(s) drawn, by me, sent to lab. EKG done, by donor services technician. reviewed by Diego Ramirez MD. Inserted saline lock: 22 gauge in left hand, using aseptic technique. Blood collected. Missed attempt(s): 20 gauge in right antecubital area. Bleeding controlled, band aid applied, catheter tip intact. 07:58 Patient maintains SpO2 saturation greater than 95% on room air. bm7 08:09 SARS-COV-2 RT PCR (Document "Date of Onset" if Symptomatic) Sent. mb7 08:14 Lab(s) recollected, by ED staff, sent to lab. bm7 08:49 Urine Microscopic Only Sent. mb7 08:54 Nataliia Flores MD is Referral Physician. hannah 09:01 Urine Dipstick-Ancillary Sent. bm7 09:10 Assisted to bathroom. bm7 09:10 SARS-COV-2 RT PCR (Document "Date of Onset" if Symptomatic) Sent. bm7 10:30 X-ray(s) taken. bm7 10:55 No provider procedures requiring assistance completed. intact, bleeding controlled, No bm7 redness/swelling at site. Pressure dressing applied. 10:57 Abdomen with Erect XRAY In Process Unspecified. EDMS Administered Medications: 07:39 Drug: NS 0.9% 1000 ml Route: IV; Rate: 1 bolus; Site: left hand; bm7 10:49 Follow up: IV Status: Completed infusion; IV Intake: 1000ml bm7 07:39 Drug: Zofran (Ondansetron) 4 mg Route: IVP; Site: left hand; bm7 07:51 Follow up: Response: Nausea is decreased bm7 08:13 Drug: morphine 4 mg Route: IVP; Infused Over: 4 mins; Site: left hand; bm7 09:11 Follow up: Response: No adverse reaction bm7 09:10 Drug: Phenergan (promethazine) 25 mg Route: IM; Site: right gluteus; bm7 09:37 Follow up: Response: Nausea is decreased bm7 09:37 Drug: Dilaudid (HYDROmorphone) 1 mg Route: IVP; Site: left hand; bm7 10:48 Follow up: Response: Pain is decreased bm7 Medication: 07:41 VIS not applicable for this client. bm7 Intake: 10:49 IV: 1000ml; Total: 1000ml. bm7 Outcome: 08:54 Discharge ordered by . [facility] 10:55 Discharged to home ambulatory. bm7 10:55 Condition: improved 10:55 Discharge instructions given to patient, Instructed on discharge instructions, medication usage, Demonstrated understanding of instructions, follow-up care, medications, Prescriptions given X 3. 10:57 Patient left the ED. bm7 Signatures: Dispatcher [employer] EDMS Diego Ramirez MD MD cha Nieto, Roman, MD MD rn Paniauga, Brittany bp1 McCarthy, Brittany, RN RN bm7 Madhavi Yeboah tw5 Radha Gregory mb7 Yessica Murphy RN RN vc1
--- NOTE | 2021-10-04 08:55 | EDPHYS ---
Physician Documentation [facility] Name: Jaimie Amanda Age: 60 yrs Sex: Female : 1960 Arrival Date: 10/04/2021 Time: 06:08 Bed 12 Private MD: COSTA Physician Diego Ramirez HPI: 10/04 06:41 This 60 yrs old Female presents to ER via Unassigned with complaints of Nausea, rn vomiting. 06:41 The patient presents to the emergency department with nausea, vomiting. Onset: The rn symptoms/episode began/occurred 2 day(s) ago. Possible causes: unknown. The symptoms are aggravated by nothing. The symptoms are alleviated by nothing. Associated signs and symptoms: Pertinent positives: nausea, vomiting, Pertinent negatives: fever, GI bleeding. Severity of symptoms: At their worst the symptoms were moderate in the emergency department the symptoms are unchanged. The patient has experienced similar episodes in the past. The patient has not recently seen a physician. Pt reports 2 days of nausea/vomiting, generalized weakness, headache, malaise. No fever. No GI bleeding. No trauma. . Historical: - Allergies: 06:46 No Known Allergies; vc1 - Home Meds: 06:46 Clonidine Oral [Active]; Klonopin Oral [Active]; levothyroxine oral [Active]; losartan vc1 Oral [Active]; Metformin Oral [Active]; - PMHx: 06:46 Anxiety; depressive disorder; diabetes mellitus; Hypertensive disorder; Hypothyroidism; vc1 - PSHx: 06:46 Thyroidectomy; vc1 - Immunization history:: Adult Immunizations up to date, Client reports receiving the 2nd dose of the Covid vaccine. - Social history:: Smoking status: Patient reports the use of cigarette tobacco products, smokes one-half pack cigarettes per day. - Family history:: not pertinent. - Hospitalizations: : No recent hospitalization is reported. ROS: 06:41 Constitutional: Negative for fever, chills, and weight loss, Eyes: Negative for injury, rn pain, redness, and discharge, Neck: Negative for injury, pain, and swelling, Cardiovascular: Negative for chest pain, palpitations, and edema, Respiratory: Negative for shortness of breath, cough, wheezing, and pleuritic chest pain, Abdomen/GI: + nausea/vomiting, neg for abd pain : Negative for injury, bleeding, discharge, and swelling, MS/Extremity: Negative for injury and deformity, Skin: Negative for injury, rash, and discoloration, Neuro: + headache and generalized weakness Exam: 06:41 Constitutional: This is a well developed, well nourished patient who is awake, alert, rn slowly ambulatory to triage without assistance. Head/Face: Normocephalic, atraumatic. Eyes: Periorbital areas with no swelling, redness, or edema. ENT: dry MM Cardiovascular: Regular rate and rhythm. No pulse deficits. Respiratory: No increased work of breathing, no retractions or nasal flaring. Abdomen/GI: Soft, non-tender Skin: Warm, dry MS/ Extremity: Pulses equal, no cyanosis. Neuro: Awake and alert, GCS 15, oriented to person, place, and year. Cranial nerves II-XII grossly intact. Motor strength 4/5 in all extremities. Sensory grossly intact. Slow but steady gait. 08:58 ECG was reviewed by the Attending Physician. [facility] Vital Signs: 06:44 Weight 72.57 kg; Height 5 ft. 7 in. (170.18 cm); Pain 10/10; vc1 06:49 BP 187 / 99; Pulse 106; Resp 18; Temp 97.9; Pulse Ox 96% ; vc1 07:50 BP 168 / 74; Pulse 90; Resp 16; Pulse Ox 98% on R/A; bm7 09:30 BP 180 / 72; Pulse 90; Resp 16; Pulse Ox 97% on R/A; Pain 8/10; bm7 10:55 BP 182 / 74; Pulse 86; Resp 16; Pulse Ox 97% on R/A; Pain 2/10; bm7 06:44 Body Mass Index 25.06 (72.57 kg, 170.18 cm) vc1 MDM: 06:13 Patient medically screened. rn 07:01 Transition of care: After a detail discussion of the patient's case, care is rn transferred to Diego Ramirez MD. 08:52 Differential diagnosis: Nonspecific abd pain, gastritis, pancreatitis, viral hannah gastroenteritis, gastroenteritis. Data reviewed: vital signs, nurses notes, lab test result(s), EKG, radiologic studies, CT scan. 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 Test interpretation: by ED physician or midlevel provider: ECG. Counseling: I had a detailed discussion with the patient and/or guardian regarding: the historical points, exam findings, and any diagnostic results supporting the discharge/admit diagnosis, lab results, radiology results, the need for outpatient follow up, for definitive care, a family practitioner, a shed boss. 10/04 06:39 Order name: CBC with Diff; Complete Time: 08:50 rn 10/04 06:39 Order name: CMP; Complete Time: 08:50 rn 10/04 06:39 Order name: Lipase; Complete Time: 08:50 rn 10/04 06:39 Order name: Urine Microscopic Only; Complete Time: 09:31 rn 10/04 06:39 Order name: SARS-COV-2 RT PCR (Document "Date of Onset" if Symptomatic) 10/04 08:15 Order name: SARS-COV-2 RT PCR (Document "Date of Onset" if Symptomatic) 10/04 06:40 Order name: CT Head Brain wo Cont; Complete Time: 08:50 10/04 08:31 Order name: SARS-COV-2 RT PCR [facility] 10/04 08:48 Order name: Urine Dipstick-Ancillary; Complete Time: 08:50 EDIA 10/04 08:50 Order name: Urine Dipstick-Ancillary [facility] 10/04 09:11 Order name: Urine Culture [facility] 10/04 09:32 Order name: Abdomen with Erect XRAY [facility] 10/04 06:39 Order name: IV Saline Lock; Complete Time: 07:38 rn 10/04 06:39 Order name: Labs collected and sent; Complete Time: 07:38 10/04 06:39 Order name: Urine Dipstick-Ancillary (obtain specimen); Complete Time: 09:00 10/04 06:41 Order name: EKG; Complete Time: 06:42 rn 10/04 06:41 Order name: EKG - Nurse/Tech; Complete Time: 07:38 rn 10/04 07:58 Order name: Labs - recollect needed: recollect green top hemolyzed; Complete Time: 08:12eb EC: Rate is 94 beats/min. Rhythm is regular. QRS [place] is Normal. [place] interval is normal. QRS hannah interval is normal. QT interval is normal. No Q waves. T waves are Normal. No ST changes noted. Clinical impression: Normal ECG, NSR w/ Non-specific ST/T Changes, and No evidence of ischemia. Interpreted by me. Reviewed by me. Administered Medications: 07:39 Drug: NS 0.9% 1000 ml Route: IV; Rate: 1 bolus; Site: left hand; bm7 10:49 Follow up: IV Status: Completed infusion; IV Intake: 1000ml bm7 07:39 Drug: Zofran (Ondansetron) 4 mg Route: IVP; Site: left hand; bm7 07:51 Follow up: Response: Nausea is decreased bm7 08:13 Drug: morphine 4 mg Route: IVP; Infused Over: 4 mins; Site: left hand; bm7 09:11 Follow up: Response: No adverse reaction bm7 09:10 Drug: Phenergan (promethazine) 25 mg Route: IM; Site: right gluteus; bm7 09:37 Follow up: Response: Nausea is decreased bm7 09:37 Drug: Dilaudid (HYDROmorphone) 1 mg Route: IVP; Site: left hand; bm7 10:48 Follow up: Response: Pain is decreased bm7 Disposition Summary: 10/04/21 08:54 Discharge Ordered Location: Home hannah Problem: new hannah Symptoms: have improved hannah Condition: Stable hannah Diagnosis - Abdominal pain, Generalized hannah - Vomiting hannah - Hypokalemia hannah Followup: hannah - With: Private Physician - When: 2 - 3 days - Reason: Recheck today's complaints, Continuance of care, Re-evaluation by your physician Followup: hannah - With: Nataliia Flores MD - When: 2 - 3 days - Reason: Recheck today's complaints, Re-evaluation by your physician Discharge Instructions: - Discharge Summary Sheet hannah - Abdominal Pain, Adult hannah - Potassium Content of Foods hannah - Abdominal Pain, Adult, Vgni-ca-Heyg hannah - Vomiting, Adult hannah - Hypokalemia hannah Forms: - Medication Reconciliation Form hannah - Thank You Letter hannah - Antibiotic Education hannah - Prescription Opioid Use hannah Prescriptions: - Zofran 4 mg Oral Tablet - take 1 tablet by ORAL route every 12 hours As needed; 20 tablet; Refills: 0, hannah Product Selection Permitted - dicyclomine 20 mg Oral Tablet - take 1 tablet by ORAL route 4 times per day; 28 tablet; Refills: 0, Product hannah Selection Permitted - promethazine 25 mg Oral Tablet - take 1 tablet by ORAL route every 6 hours As needed; 20 tablet; Refills: 0, hannah Product Selection Permitted Signatures: Dispatcher [employer] Diego Osorio MD MD cha Nieto, Roman, MD MD rn Botello, Elizabeth eb McCarthy, Brittany, RN RN bm7 Yessica Murphy RN RN vc1
[2021-10-04 09:08] LABS: Urine Bacteria 20-50 /HPF (<20); Urine Mucus Slight /HPF (None Seen); Urine RBC <5 /HPF (None Seen)
[2021-10-04] MEDS ORDERED: PROMETHAZINE INJ 25 MG/ML AMP ONE (09:08)
[2021-10-04] MEDS ORDERED: HYDROMORPHONE HCL 1 MG/ML INJ ONE (09:43)
--- NOTE | 2021-10-04 11:04 | RAD REPORT ---
EXAM DESCRIPTION: RAD - Abdomen W Erect - 10/04/2021 10:55 am CLINICAL HISTORY: ABD PAIN COMPARISON: Abdomen W Erect dated 09/29/2021 FINDINGS: Nonobstructive bowel gas pattern. No acute osseous abnormality.Visualized lungs are unrema rkable.No abnormal calcifications. IMPRESSION: Nonobstructive bowel gas pattern.
[2021-10-04 11:24] VITALS: TEMP 97.9
[2021-10-04 11:41] VITALS: O2SAT 97
[2021-10-04 11:43] VITALS: BP 182/74
--- NOTE | 2021-10-06 16:58 | EKG ---
Test Date: 2021-10-04 Test Time: 07:42:43 Jewelry Sales Coordinator: MEAGHAN MEASUREMENT RESULTS: Intervals: Rate: 94 [place]: 164 QRSD: 76 QT: 344 QTc: 430 [place]: P: 66 [place]: 164 QRS: 59 T: 72 INTERPRETIVE STATEMENTS: Normal sinus rhythm Normal ECG Compared to ECG 09/20/2021 08:45:13 No significant changes Electronically Signed On 10-06-21 16:57:38 CDT by Brian Booker
== END 2021-10-04 10:57 | disposition home or self-care (01) ==
LOC: ER 06:06
DX: E87.6 Hypokalemia (principal); R10.84 Generalized abdominal pain; I10 Essential (primary) hypertension; F17.210 Nicotine dependence, cigarettes, uncomplicated; E11.9 Type 2 diabetes mellitus without complications; F32.A Depression, unspecified; Z20.822 Contact with and (suspected) exposure to COVID-19
CPT/HCPCS: 87088; 85025; 87086; 36415; 83690; 80053; 70450; 74019; U0003; J2550; J1170; J7030; J2405; 81003; 81015; 93005; 96361; 96372; 96374; 96375; 99285

== ENCOUNTER 2021-10-06 18:27 | Emergency (ER) | payer OTHER ==
[2021-10-06] MEDS ORDERED: ONDANSETRON 4 MG/2 ML VIAL ONE (19:31)
[2021-10-06] MEDS ORDERED: FAMOTIDINE 20 MG/2 ML VIAL IV ONE (19:32)
[2021-10-06] MEDS ORDERED: NA CHLORIDE 0.9% 1,000 ML ONE (19:32)
--- NOTE | 2021-10-06 20:37 | EDPHYS ---
Physician Documentation [facility] Name: Jaimie Amanda Age: 60 yrs Sex: Female : 1960 Arrival Date: 10/06/2021 Time: 18:33 Bed 20 Private MD: ED Physician Tera Raymond HPI: 10/06 19:57 This 60 yrs old Female presents to ER via Wheelchair with complaints of Abdominal Pain, kdr Vomiting/Diarrhea, Dizziness, Vision Problem. 19:57 The patient presents to the emergency department with nausea, that is mild, vomiting, kdr that is intermittent, abdominal pain, of the abdomen diffusely. Onset: The symptoms/episode began/occurred gradually, yesterday. Possible causes: unknown, Patient presents to the ED with abdominal pain and nausea vomiting. She presents frequently with similar complaints. She states that the only difference today is that her pain is worse. In review of her records, she has had 16 CT scans since March 09 of this year. Average of over 2 CTs of her abdomen and pelvis per month. The symptoms are aggravated by nothing. The symptoms are alleviated by nothing. Associated signs and symptoms: Pertinent positives: abdominal pain, nausea, vomiting. Severity of symptoms: At their worst the symptoms were mild moderate just prior to arrival, in the emergency department the symptoms are unchanged. The patient has not experienced similar symptoms in the past. The patient has not recently seen a physician. Historical: - Allergies: 18:45 No Known Allergies; ll1 - PMHx: 18:45 Anxiety; depressive disorder; diabetes mellitus; Hypertensive disorder; Hypothyroidism; ll1 - PSHx: 18:45 Thyroidectomy; ll1 - Immunization history:: Client reports receiving the 2nd dose of the Covid vaccine. - Social history:: Smoking status: Patient reports the use of cigarette tobacco products, smokes one-half pack cigarettes per day. ROS: 19:57 Constitutional: Negative for fever, chills, and weight loss, Eyes: Negative for injury, kdr pain, redness, and discharge, Neck: Negative for injury, pain, and swelling, Cardiovascular: Negative for chest pain, palpitations, and edema, Respiratory: Negative for shortness of breath, cough, wheezing, and pleuritic chest pain, Back: Negative for injury and pain, : Negative for injury, bleeding, discharge, and swelling, MS/Extremity: Negative for injury and deformity, Skin: Negative for injury, rash, and discoloration, Neuro: Negative for headache, weakness, numbness, tingling, and seizure activity. Psych: Negative for depression, anxiety, suicide ideation, homicidal ideation, and hallucinations, Allergy/Immunology: Negative for hives, rash, and allergies, Endocrine: Negative for neck swelling, polydipsia, polyuria, polyphagia, and marked weight changes, Hematologic/Lymphatic: Negative for swollen nodes, abnormal bleeding, and unusual bruising. 19:57 Abdomen/GI: Positive for abdominal pain, nausea and vomiting, Negative for diarrhea, constipation, abdominal cramps, abdominal distension, anorexia, dysphagia, black/tarry stool, rectal pain, rectal bleeding, bowel incontinence. Exam: 19:57 Constitutional: This is a well developed, well nourished patient who is awake, alert, kdr and in no acute distress. Head/Face: Normocephalic, atraumatic. Eyes: Pupils equal round and reactive to light, extra-ocular motions intact. Lids and lashes normal. Conjunctiva and sclera are non-icteric and not injected. Cornea within normal limits. Periorbital areas with no swelling, redness, or edema. Neck: Trachea midline, no thyromegaly or masses palpated, and no cervical lymphadenopathy. Supple, full range of motion without nuchal rigidity, or vertebral point tenderness. No Meningismus. Chest/axilla: Normal chest wall appearance and motion. Nontender with no deformity. No lesions are appreciated. Cardiovascular: Regular rate and rhythm with a normal S1 and S2. No gallops, murmurs, or rubs. Normal PMI, no JVD. No pulse deficits. Respiratory: Lungs have equal breath sounds bilaterally, clear to auscultation and percussion. No rales, rhonchi or wheezes noted. No increased work of breathing, no retractions or nasal flaring. Back: No spinal tenderness. No costovertebral tenderness. Full range of motion. Skin: Warm, dry with normal turgor. Normal color with no rashes, no lesions, and no evidence of cellulitis. MS/ Extremity: Pulses equal, no cyanosis. Neurovascular intact. Full, normal range of motion. Neuro: Awake and alert, GCS 15, oriented to person, place, time, and situation. Cranial nerves II-XII grossly intact. Motor strength 5/5 in all extremities. Sensory grossly intact. Cerebellar exam normal. Normal gait. Psych: Awake, alert, with orientation to person, place and time. Behavior, mood, and affect are within normal limits. 19:57 Abdomen/GI: Inspection: obese Bowel sounds: active, all quadrants, Palpation: soft, nontender, in all quadrants. Vital Signs: 18:45 BP 96 / 40; Pulse 87; Resp 17; Temp 97.4; Pulse Ox 96% on R/A; Weight 72.57 kg; Height ll1 5 ft. 7 in. (170.18 cm); Pain 9/10; 19:43 BP 103 / 63; Pulse 84; Resp 16; Pulse Ox 99% on R/A; hb 18:45 Body Mass Index 25.06 (72.57 kg, 170.18 cm) ll1 MDM: 20:36 Patient medically screened. [facility] 10/06 19:21 Order name: CBC with Diff [facility] 10/06 19:21 Order name: CMP [facility] 10/06 19:21 Order name: Lipase [facility] 10/06 19:21 Order name: IV Saline Lock; Complete Time: 20:50 [facility] 10/06 19:21 Order name: Labs collected and sent; Complete Time: 20:50 kdr Administered Medications: 19:44 Drug: NS 0.9% 1000 ml Route: IV; Rate: 1 bolus; Site: right antecubital; hb 19:44 Drug: Pepcid (famotidine) 20 mg Route: IVP; Site: right antecubital; hb 19:44 Drug: Zofran (Ondansetron) 4 mg Route: IVP; Site: right antecubital; hb Disposition Summary: 10/06/21 20:36 Discharge Ordered Location: Home kdr Problem: an acute exacerbation kdr Symptoms: have improved kdr Condition: Stable kdr Diagnosis - Nausea with vomiting, unspecified kdr - Abdominal pain, unspecified kdr Followup: kdr - With: Private Physician - When: 2 - 3 days - Reason: If symptoms return, Further diagnostic work-up, Recheck today's complaints, Continuance of care, Re-evaluation by your physician Discharge Instructions: - Discharge Summary Sheet kdr - Abdominal Pain, Adult kdr - Nausea, Adult kdr Forms: - Medication Reconciliation Form kdr - Thank You Letter kdr Prescriptions: - Protonix 40 mg Oral Tablet - take 1 tablet by ORAL route once daily; 30 tablet; Refills: 0, Product kdr Selection Permitted - Zofran 4 mg Oral Tablet - take 1 tablet by ORAL route every 4-6 hours As needed; 20 tablet; Refills: 0, kdr Product Selection Permitted Signatures: Dispatcher [employer] Tera Calderon MD MD kdr Gail Espinoza RN RN Mikhail Otero RN RN ll1 Corrections: (The following items were deleted from the chart) 20:45 19:57 Abdomen Acute Series+[id number].BRZ ordered. EDMO EDMS
--- NOTE | 2021-10-06 20:37 | ER ---
Nurse's Notes [facility] Name: Jaimie Amanda Age: 60 yrs Sex: Female : 1960 Arrival Date: 10/06/2021 Time: 18:33 Bed 20 Private MD: Diagnosis: Nausea with vomiting, unspecified;Abdominal pain, unspecified Presentation: 10/06 18:45 Chief complaint: Patient states: Abd pain, N/V/D, malaise, dizzy since last night. ll1 Coronavirus screen: Vaccine status: Patient reports receiving the 2nd dose of the covid vaccine. Client denies travel out of the [place] in the last 14 days. diarrhea, fatigue, nausea, vomiting. Ebola Screen: Patient denies travel to an Ebola-affected area in the 21 days before illness onset. Initial Sepsis Screen: Does the patient meet any 2 criteria? No. Patient's initial sepsis screen is negative. Does the patient have a suspected source of infection? Yes: Acute abdominal pain. Risk Assessment: Do you want to hurt yourself or someone else? Patient reports no desire to harm self or others. Onset of symptoms was October 05, 2021. 18:45 Method Of Arrival: Wheelchair ll1 18:45 Acuity: ZHEN 3 ll1 Triage Assessment: 18:47 General: Appears ill, Behavior is cooperative, appropriate for age. Pain: Complains of ll1 pain in abdomen Pain currently is 9 out of 10 on a pain scale. Quality of pain is described as aching, throbbing. Neuro: Reports dizziness, weakness. GI: Reports lower abdominal pain, upper abdominal pain, cramping, diarrhea, nausea, vomiting. Historical: - Allergies: 18:45 No Known Allergies; ll1 - PMHx: 18:45 Anxiety; depressive disorder; diabetes mellitus; Hypertensive disorder; Hypothyroidism; ll1 - PSHx: 18:45 Thyroidectomy; ll1 - Immunization history:: Client reports receiving the 2nd dose of the Covid vaccine. - Social history:: Smoking status: Patient reports the use of cigarette tobacco products, smokes one-half pack cigarettes per day. Screenin:02 Abuse screen: Denies threats or abuse. Denies injuries from another. Nutritional hb screening: No deficits noted. Tuberculosis screening: No symptoms or risk factors identified. Fall Risk None identified. Assessment: 19:15 General: Appears in no apparent distress. Behavior is calm, cooperative. Pain: Pain hb currently is 9 out of 10 on a pain scale. Neuro: Level of Consciousness is awake, alert, obeys commands, Oriented to person, place, time, situation. Cardiovascular: Patient's skin is warm and dry. Respiratory: Respiratory effort is even, unlabored, Respiratory pattern is regular, symmetrical. GI: Reports lower abdominal pain, anorexia, diarrhea, nausea, vomiting. : No signs and/or symptoms were reported regarding the genitourinary system. EENT: No signs and/or symptoms were reported regarding the EENT system. Derm: Skin is pink, warm \T\ dry. Musculoskeletal: No signs and/or symptoms reported regarding the musculoskeletal system. Vital Signs: 18:45 BP 96 / 40; Pulse 87; Resp 17; Temp 97.4; Pulse Ox 96% on R/A; Weight 72.57 kg; Height ll1 5 ft. 7 in. (170.18 cm); Pain 9/10; 19:43 BP 103 / 63; Pulse 84; Resp 16; Pulse Ox 99% on R/A; hb 18:45 Body Mass Index 25.06 (72.57 kg, 170.18 cm) ll1 ED Course: 06:40 Arm band placed on Patient placed in an exam room, on a stretcher. ll1 18:33 Patient arrived in ED. mr 18:42 Gail Espinoza, RN is Primary Nurse. hb 18:47 Triage completed. ll1 19:03 Tera Raymond MD is Attending Physician. kdr 20:02 Patient has correct armband on for positive identification. hb 20:50 No provider procedures requiring assistance completed. IV discontinued, intact, hb bleeding controlled, No redness/swelling at site. Administered Medications: 19:44 Drug: NS 0.9% 1000 ml Route: IV; Rate: 1 bolus; Site: right antecubital; hb 19:44 Drug: Pepcid (famotidine) 20 mg Route: IVP; Site: right antecubital; hb 19:44 Drug: Zofran (Ondansetron) 4 mg Route: IVP; Site: right antecubital; hb Medication: 20:50 VIS not applicable for this client. hb Outcome: 20:36 Discharge ordered by . kdr 20:50 Discharged to home via wheelchair. hb 20:50 Condition: stable 20:50 Discharge instructions given to patient, Instructed on discharge instructions, follow up and referral plans. medication usage, Demonstrated understanding of instructions, follow-up care, medications, Prescriptions given X 2. 20:51 Patient left the ED. Signatures: Tera Raymond MD MD [facility] [address] MessinaRadha EspinozaGail RN RN Mikhail Otero RN RN ll1 Corrections: (The following items were deleted from the chart) 18:47 18:45 Pulse 87bpm; Resp 17bpm; Pulse Ox 96% RA; Temp 97.4F; 72.57 kg; Height 5 ft. 7 ll1 in.; BMI: 25.0; Pain 9/10; ll1 18:47 18:45 Acuity: ZHEN 2 ll1 ll1
[2021-10-06 20:47] LABS: Absolute Lymphocytes (CBC) 3.4 K/uL (0.7-4.9); Hematocrit 31.7 % (36.0-45.0); MCV 91.7 fL (80-100); MPV 6.8 fL (7.6-11.3); RBC Red Blood Cell Count 3.46 M/uL (3.86-4.86)
[2021-10-06 21:22] LABS: ALT/SGPT 28 U/L (12-78); Albumin 3.1 g/dL (3.4-5.0); Alkaline Phosphatase 160 U/L (45-117); BUN Blood Urea Nitrogen 17 mg/dL (7-18); Bicarbonate 27 mmol/L (21-32); Glomerular Filtration Rate 97 ml/min (=/>90); Glucose Level 134 mg/dL (74-106); Lipase 103 U/L (73-393); Protein, Total 6.2 g/dL (6.4-8.2); Sodium Level 136 mmol/L (136-145)
[2021-10-06 21:23] LABS: AST/SGOT 16 U/L (15-37); Bilirubin Total < 0.1 mg/dL (0.2-1.0); Potassium 3.5 mmol/L (3.5-5.1)
[2021-10-06 22:17] VITALS: TEMP 97.4
[2021-10-06 22:20] VITALS: BP 103/63; O2SAT 99
== END 2021-10-06 20:51 | disposition home or self-care (01) ==
LOC: ER 18:27
DX: R10.30 Lower abdominal pain, unspecified (principal); R11.2 Nausea with vomiting, unspecified; E11.9 Type 2 diabetes mellitus without complications; I10 Essential (primary) hypertension; F17.210 Nicotine dependence, cigarettes, uncomplicated
CPT/HCPCS: 36415; 80053; 83690; 85025; 96374; 96375; 99283; J2405; J3490; J7030

== ENCOUNTER 2021-10-07 03:56 | Emergency (ER) | payer OTHER ==
[2021-10-07] MEDS ORDERED: ONDANSETRON 4 MG/2 ML VIAL ONE (04:53)
[2021-10-07 04:56] LABS: Absolute Lymphocytes (CBC) 2.3 K/uL (0.7-4.9); Hematocrit 30.8 % (36.0-45.0); Lymphocytes % 33.7 % (15.3-44.8); MCV 91.9 fL (80-100); MPV 6.6 fL (7.6-11.3); RBC Red Blood Cell Count 3.35 M/uL (3.86-4.86)
[2021-10-07 05:15] LABS: Albumin 3.1 g/dL (3.4-5.0); Bilirubin Total 0.2 mg/dL (0.2-1.0); Protein, Total 6.2 g/dL (6.4-8.2)
[2021-10-07 05:17] LABS: Potassium 3.7 mmol/L (3.5-5.1)
[2021-10-07] MEDS ORDERED: KETOROLAC 30 MG/ML INJ ONE (05:26)
--- NOTE | 2021-10-07 06:49 | EDPHYS ---
Physician Documentation [facility] Name: Jaimie Amanda Age: 60 yrs Sex: Female : 1960 Arrival Date: 10/07/2021 Time: 03:58 Bed 7 Private MD: ED Physician Tera Raymond HPI: 10/07 05:25 This 60 yrs old Female presents to ER via EMS with complaints of Abdominal Pain. kdr 05:25 The patient presents with abdominal pain that is diffuse. Onset: The symptoms/episode kdr began/occurred at an unknown time, Patient has a history of chronic abdominal pain and is seen here on an ongoing basis for the same problem. She was seen here earlier today with the same issue. She left at that time without any issue. She is in the bed at this time not in any acute distress. She states that she is having terrible abdominal pain however her presentation does not support any significant pain or illness at this time. The symptoms do not radiate. Associated signs and symptoms: Pertinent positives: nausea and vomiting, Pertinent negatives: blood in stools, chest pain, constipation, diarrhea, dysuria, fever, headache, hematuria, palpitations, shortness of breath, vaginal discharge, vomiting blood. The symptoms are described as achy, crampy, vague, waxing/waning. Severity of pain: At its worst the pain was mild moderate just prior to arrival, in the emergency department the pain is unchanged. The patient has experienced similar episodes in the past, chronically. The patient has not recently seen a physician. Historical: - Allergies: 04:01 No Known Allergies; aa9 - Home Meds: 04:01 Clonidine Oral [Active]; Klonopin Oral [Active]; levothyroxine oral [Active]; Metformin aa9 Oral [Active]; losartan Oral [Active]; - PMHx: 04:01 Hypothyroidism; Hypertensive disorder; diabetes mellitus; depressive disorder; Anxiety; aa9 - PSHx: 04:01 Thyroidectomy; aa9 - Immunization history:: Client reports receiving the 2nd dose of the Covid vaccine, Flu vaccine is up to date. - Social history:: Smoking status: Patient reports the use of cigarette tobacco products, smokes one-half pack cigarettes per day. ROS: 05:25 Constitutional: Negative for fever, chills, and weight loss, Eyes: Negative for injury, kdr pain, redness, and discharge, Neck: Negative for injury, pain, and swelling, Cardiovascular: Negative for chest pain, palpitations, and edema, Respiratory: Negative for shortness of breath, cough, wheezing, and pleuritic chest pain, Back: Negative for injury and pain, : Negative for injury, bleeding, discharge, and swelling, MS/Extremity: Negative for injury and deformity, Skin: Negative for injury, rash, and discoloration, Neuro: Negative for headache, weakness, numbness, tingling, and seizure activity. Psych: Negative for depression, anxiety, suicide ideation, homicidal ideation, and hallucinations, Allergy/Immunology: Negative for hives, rash, and allergies, Endocrine: Negative for neck swelling, polydipsia, polyuria, polyphagia, and marked weight changes, Hematologic/Lymphatic: Negative for swollen nodes, abnormal bleeding, and unusual bruising. 05:25 Abdomen/GI: Positive for abdominal pain, nausea and vomiting, Negative for diarrhea, constipation, abdominal cramps, abdominal distension, anorexia, dysphagia, hematemesis, black/tarry stool, rectal pain, rectal bleeding, bowel incontinence. Exam: 05:25 Constitutional: This is a well developed, well nourished patient who is awake, alert, kdr and in no acute distress. Head/Face: Normocephalic, atraumatic. Eyes: Pupils equal round and reactive to light, extra-ocular motions intact. Lids and lashes normal. Conjunctiva and sclera are non-icteric and not injected. Cornea within normal limits. Periorbital areas with no swelling, redness, or edema. Neck: Trachea midline, no thyromegaly or masses palpated, and no cervical lymphadenopathy. Supple, full range of motion without nuchal rigidity, or vertebral point tenderness. No Meningismus. Chest/axilla: Normal chest wall appearance and motion. Nontender with no deformity. No lesions are appreciated. Cardiovascular: Regular rate and rhythm with a normal S1 and S2. No gallops, murmurs, or rubs. Normal PMI, no JVD. No pulse deficits. Respiratory: Lungs have equal breath sounds bilaterally, clear to auscultation and percussion. No rales, rhonchi or wheezes noted. No increased work of breathing, no retractions or nasal flaring. Abdomen/GI: Soft, non-tender, with normal bowel sounds. No distension or tympany. No guarding or rebound. No evidence of tenderness throughout. Back: No spinal tenderness. No costovertebral tenderness. Full range of motion. Skin: Warm, dry with normal turgor. Normal color with no rashes, no lesions, and no evidence of cellulitis. MS/ Extremity: Pulses equal, no cyanosis. Neurovascular intact. Full, normal range of motion. Neuro: Awake and alert, GCS 15, oriented to person, place, time, and situation. Cranial nerves II-XII grossly intact. Motor strength 5/5 in all extremities. Sensory grossly intact. Cerebellar exam normal. Normal gait. Psych: Awake, alert, with orientation to person, place and time. Behavior, mood, and affect are within normal limits. Vital Signs: 03:58 BP 136 / 76; Pulse 84; Resp 20; Temp 98.2(O); Pulse Ox 97% on R/A; Weight 72.57 kg (R); aa9 Height 5 ft. 7 in. (170.18 cm) (R); Pain 9/10; 04:07 BP 135 / 71; Pulse 87; Pulse Ox 96% on R/A; aa9 05:45 BP 116 / 71; Pulse 62; Resp 20; Pulse Ox 98% on R/A; jb4 03:58 Body Mass Index 25.06 (72.57 kg, 170.18 cm) aa9 MDM: 06:49 Patient medically screened. kdr 19:24 Data reviewed: vital signs, nurses notes, lab test result(s). Counseling: I had a kdr detailed discussion with the patient and/or guardian regarding: the historical points, exam findings, and any diagnostic results supporting the discharge/admit diagnosis, lab results, the need for outpatient follow up. 10/07 04:08 Order name: CBC with Diff; Complete Time: 05:30 [facility] 10/07 04:08 Order name: CMP; Complete Time: 05:30 [facility] 10/07 04:08 Order name: Lipase; Complete Time: 05:30 4 10/07 04:08 Order name: IV Saline Lock; Complete Time: 04:08 [facility] 10/07 04:08 Order name: Labs collected and sent; Complete Time: 04:08 [facility] 10/07 04:30 Order name: Labs - recollect needed; Complete Time: 04:40 lp1 Administered Medications: 04:49 Drug: Zofran (Ondansetron) 4 mg Route: IVP; Site: right antecubital; aa9 05:22 Drug: Ketorolac 15 mg Route: IVP; Site: right antecubital; aa9 06:25 Not Given (Patient Refused; " i am feeling much better"): Tylenol 650 mg PO once tw5 Disposition Summary: 10/07/21 06:49 Discharge Ordered Location: Home kdr Problem: new kdr Symptoms: have improved kdr Condition: Stable kdr Diagnosis - Abdominal pain, Generalized kdr Followup: kdr - With: Private Physician - When: 2 - 3 days - Reason: If symptoms return, Further diagnostic work-up, Recheck today's complaints, Continuance of care, Re-evaluation by your physician Discharge Instructions: - Discharge Summary Sheet kdr - Abdominal Pain, Adult, [id number] kdr Forms: - Medication Reconciliation Form kdr - Thank You Letter kdr Signatures: Dispatcher [employer] Tera Calderon MD MD kdr Joanie Young RN RN lp1 Bharathi Campos RN RN [email or web address] Madhavi Yeboah tw5 Beulah Francis, RN RN aa9
--- NOTE | 2021-10-07 06:49 | ER ---
Nurse's Notes [facility] Name: Jaimie Amanda Age: 60 yrs Sex: Female : 1960 Arrival Date: 10/07/2021 Time: 03:58 Bed 7 Private MD: Diagnosis: Abdominal pain, Generalized Presentation: 10/07 03:58 Chief complaint: Patient states: "I have a sharp pain on my right side". Coronavirus aa9 screen: Vaccine status: Patient reports receiving the 2nd dose of the covid vaccine. Ebola Screen: No symptoms or risks identified at this time. Initial Sepsis Screen: Does the patient meet any 2 criteria? Altered Mental Status. Does the patient have a suspected source of infection? No. Patient's initial sepsis screen is negative. Risk Assessment: Do you want to hurt yourself or someone else? Patient reports no desire to harm self or others. Onset of symptoms was October 06, 2021. 03:58 Method Of Arrival: EMS: [facility] aa9 03:58 Acuity: ZHEN 3 aa9 Triage Assessment: 04:02 General: Appears uncomfortable, Behavior is calm, cooperative. Pain: Complains of pain aa9 in posterior aspect of right lateral abdomen and anterior aspect of right lateral abdomen Pain currently is 9 out of 10 on a pain scale. Quality of pain is described as sharp. Historical: - Allergies: 04:01 No Known Allergies; aa9 - Home Meds: 04:01 Clonidine Oral [Active]; Klonopin Oral [Active]; levothyroxine oral [Active]; Metformin aa9 Oral [Active]; losartan Oral [Active]; - PMHx: 04:01 Hypothyroidism; Hypertensive disorder; diabetes mellitus; depressive disorder; Anxiety; aa9 - PSHx: 04:01 Thyroidectomy; aa9 - Immunization history:: Client reports receiving the 2nd dose of the Covid vaccine, Flu vaccine is up to date. - Social history:: Smoking status: Patient reports the use of cigarette tobacco products, smokes one-half pack cigarettes per day. Screenin:07 Abuse screen: Denies threats or abuse. Denies injuries from another. Nutritional aa9 screening: No deficits noted. Tuberculosis screening: No symptoms or risk factors identified. Fall Risk None identified. Assessment: 04:05 General: Appears uncomfortable, Behavior is cooperative, anxious. aa9 04:11 GI: Abdomen is round Bowel sounds present X 4 quads. Abd is soft X 4 quads Abdomen is aa9 tender to palpation in right lower quadrant Reports Pain is 9 out of 10 on a pain scale. 04:50 Reassessment: pt appears comfortable, cooperative. aa9 05:36 Reassessment: Patient appears in no apparent distress at this time. Patient and/or jb4 family updated on plan of care and expected duration. Pain level reassessed. Patient is alert, oriented x 3, equal unlabored respirations, skin warm/dry/pink. Pt states " I feel better. I still hurt a little, bit but I feel much better.". 06:45 General: Reports "I feel better, I am ready to go. I want to go home now.". tw5 Vital Signs: 03:58 BP 136 / 76; Pulse 84; Resp 20; Temp 98.2(O); Pulse Ox 97% on R/A; Weight 72.57 kg (R); aa9 Height 5 ft. 7 in. (170.18 cm) (R); Pain 9/10; 04:07 BP 135 / 71; Pulse 87; Pulse Ox 96% on R/A; aa9 05:45 BP 116 / 71; Pulse 62; Resp 20; Pulse Ox 98% on R/A; jb4 03:58 Body Mass Index 25.06 (72.57 kg, 170.18 cm) aa9 ED Course: 03:58 Patient arrived in ED. aa9 03:58 Tera Raymond MD is Attending Physician. kdr 04:01 Triage completed. aa9 04:04 Arm band placed on. aa9 04:05 Initial lab(s) drawn, by me, sent to lab. Inserted saline lock: 20 gauge in right tw5 antecubital area, using aseptic technique. Blood collected. ultrasound guided. 04:08 Patient has correct armband on for positive identification. Bed in low position. Call aa9 light in reach. 04:39 Lab(s) recollected, by me, sent to lab. tw5 04:40 CBC with Diff Sent. tw 04:40 CMP Sent. tw 04:40 Lipase Sent. tw 06:45 Door closed. Noise minimized. Lights dimmed. Moved to private room. Warm blanket given. tw5 Verbal reassurance given. 06:45 No provider procedures requiring assistance completed. IV discontinued, intact, tw5 bleeding controlled, No redness/swelling at site. Pressure dressing applied. 06:51 Beulah Francis, RN is Primary Nurse. aa9 Administered Medications: 04:49 Drug: Zofran (Ondansetron) 4 mg Route: IVP; Site: right antecubital; aa9 05:22 Drug: Ketorolac 15 mg Route: IVP; Site: right antecubital; aa9 06:25 Not Given (Patient Refused; " i am feeling much better"): Tylenol 650 mg PO once tw5 Medication: 06:45 VIS not applicable for this client. tw5 Outcome: 06:45 Discharged to home ambulatory. tw5 06:45 Condition: improved 06:45 Discharge instructions given to patient, Instructed on discharge instructions, follow up and referral plans. Demonstrated understanding of instructions, follow-up care, medications. 06:49 Discharge ordered by . kdr 06:53 Patient left the ED. tw5 Signatures: Tera Raymond MD MD [email or web address] Bharathi Campos, RN RN Madhavi Marks tw5 Beulah Francis, RN RN aa9 Corrections: (The following items were deleted from the chart) 06:46 06:45 Assist provider with bone marrow aspiration tw5 tw5
[2021-10-07 06:58] VITALS: TEMP 98.2
[2021-10-07 07:06] VITALS: BP 116/71; O2SAT 98
[2021-10-07] MEDS ORDERED: SMZ./TMP. 800/160 MG TABLET ONE (07:06)
[2021-10-07] MEDS ORDERED: CEFTRIAXONE 1000 MG/VIAL ONE (07:06)
[2021-10-07] MEDS ORDERED: NA CHLORIDE 0.9% 50 ML ONE (07:07)
== END 2021-10-07 06:53 | disposition home or self-care (01) ==
LOC: ER 03:56
DX: R10.84 Generalized abdominal pain (principal); E11.9 Type 2 diabetes mellitus without complications; I10 Essential (primary) hypertension; E03.9 Hypothyroidism, unspecified; F32.A Depression, unspecified; F41.9 Anxiety disorder, unspecified; F17.210 Nicotine dependence, cigarettes, uncomplicated
CPT/HCPCS: 85025; 36415; 83690; 80053; J2405; 96374; 96375; 99284

== ENCOUNTER 2021-10-24 08:20 | Emergency (ER) | payer OTHER ==
--- OUTSIDE RECORDS SUMMARY | 2021-10-24 08:27 | XMS REPORT | Continuity of Care Document ---
:1960 Author Organization [facility] t Address [address] [place] [address] Care Team Providers Name Role Phone Sharpless Primary Care Physician MATT SIMPSON Attending Clinician Unavailable MATT SIMPSON Attending Clinician Unavailable Doctor Unassigned, [place] Attending Clinician Unavailable WALLY KRISHNAMURTHY Attending Clinician Unavailable Natacha Brewster Attending Clinician Payers Payer Name Policy Type Policy Number Effective Date Expiration Date Sarina castelan [facility] [id number] 2017 00:00:00 PLUS Problems This patient has [...] Statins- Propensi Inactiv HMG-CoA ty to e 1-27 Reductas adverse 00:00: e reaction 00 Inhibito to drug rs Hmg-Coa Propensi Inactiv Reductas ty to e 9-24 e adverse 00:00: Inhibito reaction 00 rs to drug NITRO DRUG Active Other-Cmnt Univer s TRANSDER 5- ity of MAL 00:00: [place] [address] [facility] ACETAMIN DRUG Active Other-Cmnt Univ ers OPHEN INGREDI 5- ity of 00:00: [address] Branch Hmg-Coa Propensi Inactiv Reductas ty to e 2-28 e adverse 00:00: Inhibito reaction 00 rs to drug Nitrogly Propensi Active 2017-03 cerin ty to 1-08 adverse 00:00: reaction 00 to drug Social History Social Habit Start Date Stop Date Quantity Comments Source Sex Assigned At [facility] Alcohol intake 2016-05-01 2016-05-[address] [facility] es 00:00:00 00:00:00 non-drinker of Medical nter alcohol (finding) Smoking Status Start Date Stop Date Source Current every day smoker 2016-05-01 00:00:00 [facility] Medications Ordered Filled Start Stop Current Ordering Indication Dosage Frequency Signature Comments Components Source Medication Medication Date Date Medication? Clinician (SIG) Name Name losartan 2021-0 No 1mg 100 7-12 mg-hydrochl 00:00: orothiazide 00 25 mg tablet carvedilol 2021-0 No 1mg 12.5 mg 7-12 tablet 00:00: [...] 137 mcg 7-19 tablet 00:00: 00 clonidine 2021-0 No 1mg HCl 0.2 mg 5-04 tablet 00:00: 00 ezetimibe 2021-0 No 1mg 10 mg 5-04 tablet 00:00: [...] 5 mcg 3-17 tablet 00:00: 00 levothyroxi 2020-0 No 1mcg ne 137 mcg 3-17 tablet 00:00: 00 losartan 1-0 No 1mg 100 3-16 mg-hydrochl 00:00: orothiazide 00 25 mg tablet levothyroxi 2020-0 No 1mcg ne 125 mcg 3-16 tablet 00:00: 00 liothyronin 1-0 No 1mcg e 5 mcg 3-16 tablet 00:00: 00 sulfamethox 1-0 No 1mg azole 800 1-14 mg-trimetho 00:00: prim 160 mg 00 tablet ondansetron 2020-0 No 1mg 8 mg 1-14 disintegrat 00:00: ing tablet 00 amoxicillin 1-0 No 1mg 875 1-05 mg-potassiu 00:00: m 00 clavulanate 125 mg tablet liothyronin 1-0 No 1mcg e 5 mcg 1-05 tablet 00:00: 00 levothyroxi 1-0 No 1mcg ne 125 mcg 1-05 tablet 00:00: 00 indomethaci 1-0 No 1mg n 50 mg 1-05 capsule 00:00: 00 metformin 2020-1 No 1mg ER 500 mg 2-31 tablet,exte 00:00: nded 00 release 24 hr clonidine 2020-1 No 1mg HCl 0.2 mg 2-24 tablet 00:00: 00 losartan 2020-1 No 1mg 100 2-24 mg-hydrochl 00:00: orothiazide 00 25 mg tablet ondansetron 2020-1 No 1mg 4 mg 2-04 disintegrat 00:00: [...] mg capsule 00:00: 00 OXcarbazepi Yes 600mg [id number] Take [address] ne 2-23 [id number] mg by [facility] (TRILEPTAL) 10:23: 3D mouth [...] Goal Plan of Care Note [code = 27458-5] Goal Plan of Care Note [code = 48754-3] Goal Plan of Care Note [code = 59655-4] Goal Plan of Care Note [code = 34148-8] Goal Plan of Care Note [code = 68890-5] Goal Plan of Care Note [code = 78963-6] Goal Plan of Care Note [code = 36222-3] Goal Plan of Care Note [code = 34387-3] Goal Plan of Care Note [code = 86305-7] Goal Plan of Care Note [code = 76771-5] Goal Plan of Care Note [code = 60357-1] Goal Plan of Care Note [code = 16947-6] Goal Plan of Care Note [code = 54463-1] Goal Plan of Care Note [code = 16334-9] Goal Plan of Care Note [code = 61815-4] Goal Plan of Care Note [code = 55731-0] Goal Plan of Care Note [code = 97610-2] Goal Plan of Care Note [code = 46740-4] Goal Plan of Care Note [code = 99644-6] Goal Plan of Care Note [code = 95441-0] Goal Plan of Care Note [code = 00995-9] Goal Plan of Care Note [code = 73833-4] Goal Plan of Care Note [code = 23352-0] Goal Plan of Care Note [code = 74843-1] Goal Plan of Care Note [code = 43949-0] Goal Plan of Care Note [code = 17233-0] Goal Plan of Care Note [code = 18551-2] Goal Plan of Care Note [code = 01119-7] Goal Plan of Care Note [code = 12268-7] Goal Plan of Care Note [code = 74812-7] Goal Plan of Care Note [code = 99681-3] Goal Plan of Care Note [code = 59241-0] Goal Plan of Care Note [code = 41449-7] Goal Plan of Care Note [code = 39129-5] Goal Plan of Care Note [code = 31543-9] Goal Plan of Care Note [code = 31129-8] Goal Plan of Care Note [code = 20338-4] Goal Plan of Care Note [code = 40199-2] Goal Plan of Care Note [code = 85049-8] Goal Plan of Care Note [code = 75704-8] Goal Plan of Care Note [code = 99104-9] Goal Plan of Care Note [code = 01903-2] Goal Plan of Care Note [code = 88510-3] Goal Plan of Care Note [code = 85433-0] Goal Plan of Care Note [code = 60393-8] Goal Plan of Care Note [code = 84357-1] Goal Plan of Care Note [code = 53592-9] Goal Plan of Care Note [code = 95567-6] Goal Plan of Care Note [code = 86128-7] Goal Plan of Care Note [code = 79889-2] Goal Plan of Care Note [code = 34257-4] Encounters Start End Encounter Admission Attending Care Care Encounter Source Date/Time Date/Time Type Type Clinicians Facility Department ID 2021-06-01 Outpatient [facility] [id number] [place] 01:36:29 [id number] [facility] 2021-09-17 2021-09-17 Outpatient [id number] 00:00:00 00:00:00 Visit [id number] 2020-08-03 2020-08-03 Outpatient MATT VÁSQUEZ [facility] [id number] Univers 10:00:00 10:00:00 MATT SIMPSON [id number] [facility] 2020-08-03 2020-08-03 Outpatient MATT VÁSQUEZ [facility] [id number] Univers 10:00:00 10:00:00 MATT SIMPSON [facility] 2020-07-25 2020-07-25 Orders Doctor FISH [id number] 00:00:00 00:00:00 Only Unassigned, BK 350.1.13.10 [place] [facility] 4.2.7.2.686 [id number] 2019-09-26 2019-09-26 Outpatient Bertin KRISHNAMURTHY [facility] [id number] Univers 16:00:00 16:00:00 [facility] 2019-09-26 2019-09-26 Outpatient R RAGHU, [facility] [id number] Univers 16:00:00 16:00:00 [facility] 2018-10-21 2018-10-21 Telephone Gramm, [facility] [id number] 00:00:00 00:00:00 Natacha Nguyen 350.1.13.10 [place] 4.2.7.2.686 [place] [id number] [facility] [address] Building Results Test Description Test Time Test Comments Results Result Comments Source TSH, THIRD GENERATION 2021-06-27 05:15:49 Test Item Value Reference Range Interpretation Comme nts TSH, THIRD GENERATION (test code = 2821) 2.080 UIU/ML 0.400-4.100 HEMOGLOBIN [id number] 03:46:00 Test Item Value Reference Range Interpretation Comments HEMOGLOBIN A1c (test 6.6 % 4.2-5.6 H AMERIC AN DIABETES code = 56372) ASSOCIATION IDELINES FOR HGB A1C: PREDIABETES/INC REASED RISK . . . . . . . 5.7 -6.4% DIAGNOSIS OF DI ABETES . . . . . . . . . >=6 .5% WITH CONFIRMATION OR APPROPRIATE SYMPTOMS NOTE: ASSAY MAY BE AFFECTED BY HEMOGLOBINOPATH IES (SICKLE CELL ANEMIA, S- C DISEASE, OTHERS) OR CHIDI FICIALLY LOWERED BY DECR EASED RED CELL SURVIVAL ( HEMOLYTIC ANEMIAS, BLOOD LOSS, ETC.). CONSIDER ALTERN ATE TESTING OR LABORATORY C ONSULTATION. UNLESS OTHERWIS E INDICATED, ALL TESTING PER FORMED ATCLINICAL PATH [facility] [place]. [address] [place] [address] 3145 LABORATORY DIRE CTOR: DIANA RUSS M.D. CLIA NUMBER [id number] [place]. [id number] LIPID [id number] 02:59:52 Test Item Value Reference Range Interpretation [...] MOREINFORMATION , SEE CLIENT ANNOUNCE MENT AT [email or web address] RISK RATIO LDL/HDL 4.02 RATIO <3.22 H (test code = 2238) [id number] 00:00:00 Test Item Value Reference Range Interpretation Comments TSH, THIRD GENERATION (test code 2.080 UIU/ML = 2821) [id number] 00:00:00 Test Item Value Reference Range Interpretation Comments TSH, THIRD GENERATION (test code 2.080 UIU/ML = 2821) LIPID [id number] 00:00:00 Test Item Value Reference Range Interpretation Comments CHOLESTEROL (test code = 2210) 292 MG/DL TRIGLYCERIDES (test code = 2232) 184 MG/DL HDL CHOLESTEROL (test code = 2220) 51 MG/DL CALC LDL CHOL (test code = 2237) 205 MG/DL RISK RATIO LDL/HDL (test code = 4.02 RATIO 2238) HEMOGLOBIN [id number] 00:00:00 Test Item Value Reference Range Interpretation Comments HEMOGLOBIN A1c (test code = 83534) 6.6 % HEMOGLOBIN [id number] 00:00:00 Test Item Value Reference Range Interpretation Comments HEMOGLOBIN A1c (test code = 24406) 6.6 % HEMOGLOBIN [id number] 00:00:00 Test Item Value Reference Range Interpretation Comments HEMOGLOBIN A1c (test code = 52910) 6.8 % HEMOGLOBIN [id number] 00:00:00 Test Item Value Reference Range Interpretation Comments HEMOGLOBIN A1c (test code = 97407) 6.8 % LIPID [id number] 00:00:00 Test Item Value Reference Range Interpretation Comments CHOLESTEROL (test code = 2210) 303 MG/DL TRIGLYCERIDES (test code = 2232) 191 MG/DL HDL CHOLESTEROL (test code = 2220) 61 MG/DL CALC LDL CHOL (test code = 2237) 205 MG/DL RISK RATIO LDL/HDL (test code = 3.36 RATIO 2238) [id number] 00:00:00 Test Item Value Reference Range Interpretation Comments TSH, THIRD GENERATION (test code 0.769 UIU/ML = 2821) [id number] 00:00:00 Test Item Value Reference Range Interpretation Comments TSH, THIRD GENERATION (test code 0.769 UIU/ML = 2821) COMPREHENSIVE METABOLIC [id number] 00:00:00 Test Item Value Reference Range Interpretation Comments GLUCOSE (test code = 2217) 131 MG/DL BUN (test code = 2208) 13 MG/DL CREATININE (test code = 2214) 0.65 MG/DL eGFR AMER. (test code 113 ML/MIN/1.73 = 50175) eGFR NON- AMER. (test 97 ML/MIN/1.73 code = 39327) CALC BUN/CREAT (test code = 20 RATIO 2235) SODIUM (test code = 2231) 131 MEQ/L POTASSIUM (test code = 2228) 4.5 MEQ/L CHLORIDE (test code = 2215) 92 MEQ/L CARBON DIOXIDE (test code = 24 MEQ/L 6) CALCIUM (test code = 2209) 9.5 MG/DL [...] (test code = 2219) 23 U/L HEMOGLOBIN [id number] 00:00:00 Test Item Value Reference Range Interpretation Comments HEMOGLOBIN A1c (test code = 34743) 6.6 % HEMOGLOBIN [id number] 00:00:00 Test Item Value Reference Range Interpretation Comments HEMOGLOBIN A1c (test code = 62146) 6.6 % LIPID [id number] 00:00:00 Test Item Value Reference Range Interpretation Comments CHOLESTEROL (test code = 2210) 261 MG/DL TRIGLYCERIDES (test code = 2232) 159 MG/DL HDL CHOLESTEROL (test code = 2220) 82 MG/DL CALC LDL CHOL (test code = 2237) 150 MG/DL RISK RATIO LDL/HDL (test code = 1.83 RATIO 2238) COMPREHENSIVE METABOLIC [id number] 00:00:00 Test Item Value Reference Range Interpretation Comments GLUCOSE (test code = 2217) 144 MG/DL BUN (test code = 2208) 15 MG/DL CREATININE (test code = 2214) 0.85 MG/DL eGFR AMER. (test code 87 ML/MIN/1.73 = 10721) eGFR NON- AMER. (test 75 ML/MIN/1.73 code = 77396) CALC BUN/CREAT (test code = 18 RATIO [...] THYROX. BIND. CAPAC. (test code 1.1 = 26900) T4 (THYROXINE) (test code = 4.3 UG/DL 2819) CORRECTED T4 (FTI) (test code = 3.9 UG/DL 2820) TSH, THIRD GENERATION (test 18.900 UIU/ML code = 2821) HEMOGLOBIN [id number] 00:00:00 Test Item Value Reference Range Interpretation Comments HEMOGLOBIN A1c (test code = 34267) 6.7 % HEMOGLOBIN [id number] 00:00:00 Test Item Value Reference Range Interpretation Comments HEMOGLOBIN A1c (test code = 45515) 6.7 % LIPID [id number] 00:00:00 Test Item Value Reference Range Interpretation Comments CHOLESTEROL (test code = 2210) 267 MG/DL TRIGLYCERIDES (test code = 2232) 137 MG/DL HDL CHOLESTEROL (test code = 2220) 48 MG/DL CALC LDL CHOL (test code = 2237) 192 MG/DL RISK RATIO LDL/HDL (test code = 4.00 RATIO 2238) COMPREHENSIVE METABOLIC [id number] 00:00:00 Test Item Value Reference Range Interpretation Comments GLUCOSE (test code = 2217) 155 MG/DL BUN (test code = 2208) 14 MG/DL CREATININE (test code = 2214) 0.52 MG/DL eGFR AMER. (test code 122 ML/MIN/1.73 = 92168) eGFR NON- AMER. (test 105 ML/MIN/1.73 code = 36207) CALC BUN/CREAT (test code = 27 RATIO [...] A/G RATIO (test code = 1.7 RATIO 4) BILIRUBIN, TOTAL (test code = <0.2 MG/DL 2206) ALKALINE PHOSPHATASE (test 115 U/L code = 2204) AST (test code = 2218) 17 U/L ALT (test code = 2219) 27 U/L THYROID II PROFILE (T3U, T4, T7, TSH)2019 00:00:00 Test Item Value Reference Range Interpretation Comments T-UPTAKE (test code = 281) 33.1 % THYROX. BIND. CAPAC. (test code 1.0 = 71010) T4 (THYROXINE) (test code = 4.7 UG/DL 2819) CORRECTED T4 (FTI) (test code = 4.7 UG/DL 2820) TSH, THIRD GENERATION (test code 0.201 UIU/ML = 2821) SARS-CoV-2 (COVID-19) by RT-PCR (HIGH RISK)2019-09-18 00:00:00 Test Item Value Reference Range Interpretation Comments SARS-CoV-2 INTERPRETATION (test NEGATIVE code = 04293) SOURCE (test code = 92991) NOT SPECIFIED [id number] 00:00:00 Test Item Value Reference Range Interpretation Comments TSH, THIRD GENERATION (test code 2.490 UIU/ML = 2821) [id number] 00:00:00 Test Item Value Reference Range Interpretation Comments TSH, THIRD GENERATION (test code 2.490 UIU/ML = 2821) HEMOGLOBIN [id number] 00:00:00 Test Item Value Reference Range Interpretation Comments HEMOGLOBIN A1c (test code = 57528) 6.4 % HEMOGLOBIN [id number] 00:00:00 Test Item Value Reference Range Interpretation Comments HEMOGLOBIN A1c (test code = 50450) 6.4 % COMPREHENSIVE METABOLIC [id number] 00:00:00 Test Item Value Reference Range Interpretation Comments GLUCOSE (test code = 2217) 206 MG/DL BUN (test code = 2208) 23 MG/DL CREATININE (test code = 2214) 0.67 MG/DL eGFR AMER. (test code 112 ML/MIN/1.73 = 00416) eGFR NON- AMER. (test 97 ML/MIN/1.73 code = 77703) CALC BUN/CREAT (test code = 34 RATIO [...] = 2219) 25 U/L VAGINAL PATHOGENS DNA [id number] 00:00:00 Test Item Value Reference Range Interpretation Comments MARK SPECIES (test code = ) NEGATIVE G. VAGINALIS (test code = ) NEGATIVE T. VAGINALIS (test code = ) NEGATIVE HEMOGLOBIN A1c [ADDED]2018-12-01 00:00:00 Test Item Value Reference Range Interpretation Comments HEMOGLOBIN A1c (test code = 45588) 6.7 % HEMOGLOBIN A1c [ADDED]2018-12-01 00:00:00 Test Item Value Reference Range Interpretation Comments HEMOGLOBIN A1c (test code = 73386) 6.7 % COMPREHENSIVE METABOLIC PANEL [ADDED]2018-12-01 00:00:00 Test Item Value Reference Range Interpretation Comments GLUCOSE (test code = 2217) 136 MG/DL BUN (test code = 2208) 15 MG/DL CREATININE (test code = 2214) 0.64 MG/DL eGFR AMER. (test code 115 ML/MIN/1.73 = 94145) eGFR NON- AMER. (test 99 ML/MIN/1.73 code = 49548) CALC BUN/CREAT (test code = 23 RATIO [...] = <0.2 MG/DL 220) ALKALINE PHOSPHATASE (test 111 U/L code = [...] code 1.280 UIU/ML = 2821) CBC W/AUTO [id number] 00:00:00 Test Item Value Reference Range Interpretation [...] code = 1015) 346 K/UL CBC W/AUTO [id number] 00:00:00 Test Item Value Reference Range Interpretation [...] (test code = 1015) 346 K/UL HEMOGLOBIN [id number] 00:00:00 Test Item Value Reference Range Interpretation Comments HEMOGLOBIN A1c (test code = 82532) 5.9 % HEMOGLOBIN [id number] 00:00:00 Test Item Value Reference Range Interpretation Comments HEMOGLOBIN A1c (test code = 40169) 5.9 % LIPID [id number] 00:00:00 Test Item Value Reference Range Interpretation Comments CHOLESTEROL (test code = 2210) 318 MG/DL TRIGLYCERIDES (test code = 2232) 263 MG/DL HDL CHOLESTEROL (test code = 2220) 51 MG/DL CALC LDL CHOL (test code = 2237) 214 MG/DL RISK RATIO LDL/HDL (test code = 4.20 RATIO 2238) COMPREHENSIVE METABOLIC [id number] 00:00:00 Test Item Value Reference Range Interpretation Comments GLUCOSE (test code = 2217) 113 MG/DL BUN (test code = 2208) 18 MG/DL CREATININE (test code = 2214) 0.70 MG/DL eGFR AMER. (test code 111 ML/MIN/1.73 = 77040) eGFR NON- AMER. (test 96 ML/MIN/1.73 code = 72087) CALC BUN/CREAT (test code = 26 RATIO 2234) SODIUM (test code = 2231) 137 MEQ/L POTASSIUM (test code = 2228) 4.3 MEQ/L CHLORIDE (test code = 2215) 99 MEQ/L CARBON DIOXIDE (test code = 24 MEQ/L 2205) CALCIUM (test code = 2209) 9.6 MG/DL PROTEIN, TOTAL (test code = 7.2 G/DL 2228) ALBUMIN (test code = 2201) 4.8 G/DL CALC GLOBULIN (test code = 2.4 G/DL 2239) CALC A/G RATIO (test code = 2.0 RATIO 2233) BILIRUBIN, TOTAL (test code = <0.2 MG/DL 2206) ALKALINE PHOSPHATASE (test 80 U/L code = 2204) AST (test code = 2218) 21 U/L ALT (test code = 2219) 31 U/L [id number] 00:00:00 Test Item Value Reference Range Interpretation Comments TSH, THIRD GENERATION (test code 2.520 UIU/ML = 2821) [id number] 00:00:00 Test Item Value Reference Range Interpretation Comments TSH, THIRD GENERATION (test code 2.520 UIU/ML = 2821) CULTURE, [id number] 00:00:00 Test Item Value Reference Range Interpretation Comments CULTURE, URINE (test SPECIMEN NUMBER: code = 37525) [id number] CULTURE, [id number] 00:00:00 Test Item Value Reference Range Interpretation Comments CULTURE, URINE (test SPECIMEN NUMBER: code = 57058) [id number] BASIC METABOLIC [id number] 00:00:00 Test Item Value Reference Range Interpretation Comments GLUCOSE (test code = 2217) 135 MG/DL BUN (test code = 2208) 25 MG/DL CREATININE (test code = 2214) 0.76 MG/DL eGFR AMER. (test code 101 ML/MIN/1.73 = 05014) eGFR NON- AMER. (test 87 ML/MIN/1.73 code = 20526) SODIUM (test code = 2231) 139 MEQ/L POTASSIUM (test code = 2228) 4.7 MEQ/L CHLORIDE (test code = 2215) 99 MEQ/L CARBON DIOXIDE (test code = 26 MEQ/L 2206) CALCIUM (test code = 2209) 9.4 MG/DL LIPID [id number] 00:00:00 Test Item Value Reference Range Interpretation Comments CHOLESTEROL (test code = 2210) 262 MG/DL TRIGLYCERIDES (test code = 2232) 300 MG/DL HDL CHOLESTEROL (test code = 2220) 36 MG/DL CALC LDL CHOL (test code = 2237) 166 MG/DL RISK RATIO LDL/HDL (test code = 4.61 RATIO 2238) HEMOGLOBIN [id number] 00:00:00 Test Item Value Reference Range Interpretation Comments HEMOGLOBIN A1c (test code = 20948) 6.2 % HEMOGLOBIN [id number] 00:00:00 Test Item Value Reference Range Interpretation Comments HEMOGLOBIN A1c (test code = 73389) 6.2 % [id number] 00:00:00 Test Item Value Reference Range Interpretation Comments TSH, THIRD GENERATION (test code 0.988 UIU/ML = 2821) [id number] 00:00:00 Test Item Value Reference Range Interpretation Comments TSH, THIRD GENERATION (test code 0.988 UIU/ML = 2821) COMPREHENSIVE METABOLIC [id number] 00:00:00 Test Item Value Reference Range Interpretation Comments GLUCOSE (test code = 2217) 109 MG/DL BUN (test code = 2208) 25 MG/DL CREATININE (test code = 2214) 0.78 MG/DL eGFR AMER. (test code 98 ML/MIN/1.73 = 01442) eGFR NON- AMER. (test 84 ML/MIN/1.73 code = 30602) CALC BUN/CREAT (test code = 32 RATIO 2235) SODIUM (test code = 2231) 139 MEQ/L POTASSIUM (test code = 2228) 4.5 MEQ/L CHLORIDE (test code = 2215) 96 MEQ/L CARBON DIOXIDE (test code = 27 MEQ/L 2205) CALCIUM (test code = 2209) 10.0 MG/DL PROTEIN, TOTAL (test code = 7.6 G/DL 2228) ALBUMIN (test code = 220) 4.9 G/DL CALC GLOBULIN (test code = 2.7 G/DL 2239) CALC A/G RATIO (test code = 1.8 RATIO 2233) BILIRUBIN, TOTAL (test code = <0.2 MG/DL 2206) ALKALINE PHOSPHATASE (test 109 U/L code = 220) AST (test code = 221) 18 U/L ALT (test code = 2219) 25 U/L LIPID [id number] 00:00:00 Test Item Value Reference Range Interpretation Comments CHOLESTEROL (test code = 2210) 295 MG/DL TRIGLYCERIDES (test code = 2232) 218 MG/DL HDL CHOLESTEROL (test code = 2220) 46 MG/DL CALC LDL CHOL (test code = 2237) 205 MG/DL RISK RATIO LDL/HDL (test code = 4.47 RATIO 2238) HEMOGLOBIN [id number] 00:00:00 Test Item Value Reference Range Interpretation Comments HEMOGLOBIN A1c (test code = 40952) 7.0 % HEMOGLOBIN [id number] 00:00:00 Test Item Value Reference Range Interpretation Comments HEMOGLOBIN A1c (test code = 81297) 7.0 % [id number] 00:00:00 Test Item Value Reference Range Interpretation Comments TSH, THIRD GENERATION (test code 0.565 UIU/ML = 2821) [id number] 00:00:00 Test Item Value Reference Range Interpretation Comments TSH, THIRD GENERATION (test code 0.565 UIU/ML = 2821) [id number] 00:00:00 Test Item Value Reference Range Interpretation Comments TSH, THIRD GENERATION (test code 0.379 UIU/ML = 2821) [id number] 00:00:00 Test Item Value Reference Range Interpretation Comments TSH, THIRD GENERATION (test code 0.379 UIU/ML = 2821) CULTURE, [id number] 00:00:00 Test Item Value Reference Range Interpretation Comments CULTURE, URINE (test SPECIMEN NUMBER: code = 09257) [id number] COMPREHENSIVE METABOLIC [id number] 00:00:00 Test Item Value Reference Range Interpretation Comments GLUCOSE (test code = 2217) 128 MG/DL BUN (test code = 2208) 26 MG/DL CREATININE (test code = 2214) 0.92 MG/DL eGFR AMER. (test code 81 ML/MIN/1.73 = 06840) eGFR NON- AMER. (test 70 ML/MIN/1.73 code = 97703) CALC BUN/CREAT (test code = 28 RATIO 2235) SODIUM (test code = 2231) 138 MEQ/L POTASSIUM (test code = 2228) 4.4 MEQ/L CHLORIDE (test code = 2215) 94 MEQ/L CARBON DIOXIDE (test code = 31 MEQ/L 220) CALCIUM (test code = 2209) 9.5 MG/DL PROTEIN, TOTAL (test code = 7.3 G/DL 2228) ALBUMIN (test code = 2201) 4.7 G/DL CALC GLOBULIN (test code = 2.6 G/DL 2240) CALC A/G RATIO (test code = 1.8 RATIO 2234) BILIRUBIN, TOTAL (test code = <0.2 MG/DL 2206) ALKALINE PHOSPHATASE (test 104 U/L code = 2204) AST (test code = 2218) 24 U/L ALT (test code = 2219) 29 U/L ACUTE HEPATITIS [id number] 00:00:00 Test Item Value Reference Range Interpretation Comments HEPATITIS A IgM (test code = NON-REACTIVE 34111) HEPATITIS B CORE IgM (test code NON-REACTIVE = 4644) HEPATITIS B SURF AG (test code = NON-REACTIVE 1479) HEPATITIS C ANTIBODY (test code NON-REACTIVE = 1751) INTERPRETATION HEPATITIS A: (NOTE) (test code = 2552) INTERPRETATION HEPATITIS B: (NOTE) (test code = 09440) INTERPRETATION HEPATITIS C: (NOTE) (test code = 79995) [id number] 00:00:00 Test Item Value Reference Range Interpretation Comments AMYLASE (test code = 2205) 32 U/L [id number] 00:00:00 Test Item Value Reference Range Interpretation Comments LIPASE (test code = 205) 22 U/L [id number] 00:00:00 Test Item Value Reference Range Interpretation Comments LIPASE (test code = 2057) 22 U/L [id number] 00:00:00 Test Item Value Reference Range Interpretation Comments TSH, THIRD GENERATION (test code 4.890 UIU/ML = 2821) [id number] 00:00:00 Test Item Value Reference Range Interpretation Comments TSH, THIRD GENERATION (test code 4.890 UIU/ML = 2821) COMPREHENSIVE METABOLIC [id number] 00:00:00 Test Item Value Reference Range Interpretation Comments GLUCOSE (test code = 2217) 121 MG/DL BUN (test code = 2208) 40 MG/DL CREATININE (test code = 2214) 1.48 MG/DL eGFR AMER. (test code 45 ML/MIN/1.73 = 53327) eGFR NON- AMER. (test 39 ML/MIN/1.73 code = 77112) CALC BUN/CREAT (test code = 27 RATIO [...] RATIO 2233) BILIRUBIN, TOTAL (test code = 0.2 MG/DL 2206) ALKALINE PHOSPHATASE (test 99 U/L code = 2204) AST (test code = 2218) 15 U/L ALT (test code = 2219) 20 U/L LIPID [id number] 00:00:00 Test Item Value Reference Range Interpretation Comments CHOLESTEROL (test code = 2210) 261 MG/DL TRIGLYCERIDES (test code = 2232) 165 MG/DL HDL CHOLESTEROL (test code = 2220) 58 MG/DL CALC LDL CHOL (test code = 2237) 170 MG/DL RISK RATIO LDL/HDL (test code = 2.93 RATIO 2238) CBC W/AUTO [id number] 00:00:00 Test Item Value Reference Range Interpretation [...] code = 1015) 378 K/UL CBC W/AUTO [id number] 00:00:00 Test Item Value Reference Range Interpretation [...] (test code = 1015) 378 K/UL HEMOGLOBIN [id number] 00:00:00 Test Item Value Reference Range Interpretation Comments HEMOGLOBIN A1c (test code = 38223) 6.4 % HEMOGLOBIN [id number] 00:00:00 Test Item Value Reference Range Interpretation Comments HEMOGLOBIN A1c (test code = 48977) 6.4 % [id number] 00:00:00 Test Item Value Reference Range Interpretation Comments TSH (test code = 2821) 5.290 UIU/ML [id number] 00:00:00 Test Item Value Reference Range Interpretation Comments TSH (test code = 2821) 5.290 UIU/ML THYROID II PROFILE (T3U, T4, T7, TSH)2017-04-18 00:00:00 Test Item Value Reference Range Interpretation Comments T3 UPTAKE (test code = 2817) 32.3 % T4 (THYROXINE) (test code = 5.2 UG/DL 281) CALCULATED T7 (FTI) (test code = 1.68 2820) TSH (test code = 2821) 1.030 UIU/ML COMPREHENSIVE METABOLIC [id number] 00:00:00 Test Item Value Reference Range Interpretation Comments GLUCOSE (test code = 2217) 106 MG/DL BUN (test code = 2208) 23 MG/DL CREATININE (test code = 2214) 0.66 MG/DL eGFR AMER. (test code 114 ML/MIN/1.73 = 55565) eGFR NON- AMER. (test 99 ML/MIN/1.73 code = 08766) CALC BUN/CREAT (test code = 35 RATIO [...] A/G RATIO (test code = 2.0 RATIO 4) BILIRUBIN, TOTAL (test code = [...] code = 2821) 0.335 UIU/ML COMPREHENSIVE METABOLIC [id number] 00:00:00 Test Item Value Reference Range Interpretation Comments GLUCOSE (test code = 2217) 103 MG/DL BUN (test code = 2208) 15 MG/DL CREATININE (test code = 2214) 0.77 MG/DL eGFR AMER. (test code 101 ML/MIN/1.73 = 75876) eGFR NON- AMER. (test 87 ML/MIN/1.73 code = 29050) CALC BUN/CREAT (test code = 19 RATIO [...] CALCULATED T7 (FTI) (test code = 1.37 2820) TSH (test code = 2821) 0.424 UIU/ML CULTURE, [id number] 00:00:00 Test Item Value Reference Range Interpretation Comments CULTURE, URINE (test SPECIMEN NUMBER: code = 86768) [id number] CULTURE, [id number] 00:00:00 Test Item Value Reference Range Interpretation Comments CULTURE, URINE (test SPECIMEN NUMBER: code = 81652) [id number]
[2021-10-24 10:46] LABS: Absolute Lymphocytes (CBC) 2.1 K/uL (0.7-4.9); Hematocrit 40.6 % (36.0-45.0); Lymphocytes % 27.9 % (15.3-44.8); MCV 93.7 fL (80-100); MPV 7.3 fL (7.6-11.3); RBC Red Blood Cell Count 4.33 M/uL (3.86-4.86)
[2021-10-24 11:01] LABS: Albumin 3.6 g/dL (3.4-5.0); Bilirubin Total 0.4 mg/dL (0.2-1.0); Protein, Total 7.7 g/dL (6.4-8.2)
[2021-10-24 11:06] LABS: Potassium 4.3 mmol/L (3.5-5.1)
[2021-10-24] MEDS ORDERED: ONDANSETRON 4 MG/2 ML VIAL ONE (11:06)
[2021-10-24] MEDS ORDERED: FAMOTIDINE 20 MG/2 ML VIAL IV ONE (11:06)
[2021-10-24] MEDS ORDERED: NA CHLORIDE 0.9% 1,000 ML ONE (11:06)
--- NOTE | 2021-10-24 11:36 | ER ---
Nurse's Notes [facility] Name: Jaimie Amanda Age: 60 yrs Sex: Female : 1960 Arrival Date: 10/24/2021 Time: 08:23 Bed 14 Private MD: Diagnosis: Abdominal pain, unspecified Presentation: 10/24 08:41 Chief complaint: Patient states: sharp, R sided abd pain that began at 0330 this AM. ss Denies N/V/D. Pt was seen in ER on 10/07/21 for same pain on 10/07 and discharged to follow up with GI. PT saw Dr. Smith who put her on Protonix and scheduled for an endoscopy. Coronavirus screen: Client denies travel out of the [place] in the last 14 days. Ebola Screen: Patient denies exposure to infectious person. Patient denies travel to an Ebola-affected area in the 21 days before illness onset. Initial Sepsis Screen: Does the patient meet any 2 criteria? No. Patient's initial sepsis screen is negative. Does the patient have a suspected source of infection? No. Patient's initial sepsis screen is negative. Risk Assessment: Do you want to hurt yourself or someone else? Patient reports no desire to harm self or others. Onset of symptoms was October 24, 2021. 08:41 Method Of Arrival: Ambulatory ss 08:41 Acuity: ZHEN 3 ss Historical: - Allergies: 08:43 No Known Allergies; ss - PMHx: 08:43 Anxiety; depressive disorder; diabetes mellitus; Hypertensive disorder; Hypothyroidism; ss - PSHx: 08:43 Thyroidectomy; ss - Immunization history:: Client reports receiving the 2nd dose of the Covid vaccine. - Social history:: Smoking status: Patient reports the use of cigarette tobacco products, smokes one-half pack cigarettes per day. Screenin:39 Abuse screen: Denies threats or abuse. Denies injuries from another. Nutritional jh5 screening: No deficits noted. Tuberculosis screening: No symptoms or risk factors identified. Fall Risk None identified. Vital Signs: 08:41 BP 136 / 95; Pulse 87; Resp 16; Temp 97.1(TE); Pulse Ox 95% on R/A; Weight 70.31 kg; ss Height 5 ft. 7 in. (170.18 cm); Pain 9/10; 08:41 Body Mass Index 24.28 (70.31 kg, 170.18 cm) ED Course: 08:23 Patient arrived in ED. mr 08:43 Triage completed. 08:43 Arm band placed on left wrist. ss 09:00 Blas Garay NP is PHCP. pm1 09:00 Diego Ramirez MD is Attending Physician. pm1 09:05 PHCP role handed off by Blas Garay NP [facility] 09:05 Viridiana Peters FNP is [facility] 7 09:29 Sandi Hernandez, CATY is Primary Nurse. 5 10:28 Initial lab(s) drawn, by ak, sent to lab. Inserted saline lock: 24 gauge in right dh3 forearm, using aseptic technique. Blood collected. 11:35 Arsenio Smith MD is Referral Physician. jh7 12:39 Patient has correct armband on for positive identification. jh5 12:39 No provider procedures requiring assistance completed. IV discontinued. 5 Administered Medications: 11:00 Drug: NS 0.9% 1000 ml Route: IV; Rate: 1 bolus; Site: right forearm; 5 11:42 Drug: Ketorolac 15 mg Route: IVP; Site: right forearm; 5 11:44 Drug: Pepcid (famotidine) 20 mg Route: IVP; Site: right forearm; jh5 11:44 Drug: Zofran (Ondansetron) 4 mg Route: IVP; Site: right femoral; 5 Medication: 12:40 VIS not applicable for this client. 5 Outcome: 11:35 Discharge ordered by . 7 12:40 Patient left the ED. [facility] Signatures: Siddharth Radha funk TejasondraBel, RN RN Blas Garay NP MARKETING OUTREACH COORDINATOR pm1 Cass Gray [facility] Sandi Hernandez RN RN [facility] Viridiana Peters FNP [place] [id number]
--- NOTE | 2021-10-24 11:36 | EDPHYS ---
Physician Documentation [facility] Name: Jaimie Amanda Age: 60 yrs Sex: Female : 1960 Arrival Date: 10/24/2021 Time: 08:23 Bed 14 Private MD: [place]STA Physician Diego Ramirez HPI: 10/24 08:45 This 60 yrs old Female presents to ER via Ambulatory with complaints of Abdominal Pain. jh7 08:45 The patient presents with abdominal pain in the right upper quadrant, right lower jh7 quadrant. Onset: The symptoms/episode began/occurred acutely. Associated signs and symptoms: Pertinent positives: nausea, Pertinent negatives: diarrhea, vomiting. Reports right-sided abdominal pain since 3 AM. States that she is scheduled for an endoscopy in [address] Smith and that she currently takes Protonix.. Historical: - Allergies: 08:43 No Known Allergies; ss - PMHx: 08:43 Anxiety; depressive disorder; diabetes mellitus; Hypertensive disorder; Hypothyroidism; ss - PSHx: 08:43 Thyroidectomy; ss - Immunization history:: Client reports receiving the 2nd dose of the Covid vaccine. - Social history:: Smoking status: Patient reports the use of cigarette tobacco products, smokes one-half pack cigarettes per day. ROS: 08:45 Constitutional: Negative for fever, chills, and weight loss, Eyes: Negative for injury, jh7 pain, redness, and discharge, Neck: Negative for injury, pain, and swelling, Cardiovascular: Negative for chest pain, palpitations, and edema, Respiratory: Negative for shortness of breath, cough, wheezing, and pleuritic chest pain, Back: Negative for injury and pain, Skin: Negative for injury, rash, and discoloration, Neuro: Negative for headache, weakness, numbness, tingling, and seizure. 08:45 Abdomen/GI: Positive for abdominal pain, Nausea, Negative for vomiting, diarrhea, constipation, black/tarry stool. 08:45 All other systems are negative. Exam: 08:45 Constitutional: This is a well developed, well nourished patient who is awake, alert, jh7 and in no acute distress. Head/Face: Normocephalic, atraumatic. Neck: Trachea midline, no thyromegaly or masses palpated, and no cervical lymphadenopathy. Supple, full range of motion without nuchal rigidity, or vertebral point tenderness. No Meningismus. Cardiovascular: Regular rate and rhythm with a normal S1 and S2. No gallops, murmurs, or rubs. Normal PMI, no JVD. No pulse deficits. Respiratory: Lungs have equal breath sounds bilaterally, clear to auscultation and percussion. No rales, rhonchi or wheezes noted. No increased work of breathing, no retractions or nasal flaring. Back: No spinal tenderness. No costovertebral tenderness. Full range of motion. Skin: Warm, dry with normal turgor. Normal color with no rashes, no lesions, and no evidence of cellulitis. Neuro: Awake and alert, GCS 15, oriented to person, place, time, and situation. Normal gait. 08:45 Abdomen/GI: Inspection: abdomen appears normal, Bowel sounds: normal, Palpation: mild abdominal tenderness, in the right upper quadrant and right lower quadrant. Vital Signs: 08:41 BP 136 / 95; Pulse 87; Resp 16; Temp 97.1(TE); Pulse Ox 95% on R/A; Weight 70.31 kg; ss Height 5 ft. 7 in. (170.18 cm); Pain 9/10; 08:41 Body Mass Index 24.28 (70.31 kg, 170.18 cm) ss MDM: 09:26 Patient medically screened. [facility] 12:20 Differential diagnosis: non-specific abd pain. Data reviewed: vital signs, nurses [facility] notes, lab test result(s). Data interpreted: Pulse oximetry: is 95 %. Interpretation: normal. Counseling: I had a detailed discussion with the patient and/or guardian regarding: the historical points, exam findings, and any diagnostic results supporting the discharge/admit diagnosis, the need for outpatient follow up, a judo instructor, to return to the emergency department if symptoms worsen or persist or if there are any questions or concerns that arise at home. 10/24 09:05 Order name: CBC with Diff; Complete Time: 11:17 [facility] 10/24 09:05 Order name: CMP; Complete Time: 11:17 [facility] 10/24 09:05 Order name: Lipase; Complete Time: 11:17 [facility] 10/24 09:05 Order name: IV Saline Lock; Complete Time: 10:36 [facility] 10/24 09:05 Order name: Labs collected and sent; Complete Time: 10:36 [facility] Administered Medications: 11:00 Drug: NS 0.9% 1000 ml Route: IV; Rate: 1 bolus; Site: right forearm; [facility] 11:42 Drug: Ketorolac 15 mg Route: IVP; Site: right forearm; 5 11:44 Drug: Pepcid (famotidine) 20 mg Route: IVP; Site: right forearm; 5 11:44 Drug: Zofran (Ondansetron) 4 mg Route: IVP; Site: right femoral; [facility] Disposition Summary: 10/24/21 11:35 Discharge Ordered Location: Home [facility] Problem: an ongoing problem [facility] Symptoms: have improved [facility] Condition: Stable [facility] Diagnosis - Abdominal pain, unspecified [facility] Followup: [facility] - With: Arsenio Smith MD - When: 2 - 3 days - Reason: Further diagnostic work-up Discharge Instructions: - Discharge Summary Sheet [facility] - Abdominal Pain, Adult [facility] Forms: - Medication Reconciliation Form [facility] - Thank You Letter [facility] Signatures: Dispatcher [employer] Bel Valadez, RN RN Sandi Hernandez RN RN 5 Viridiana Peters, HARDBOARD SUPERVISOR HARDBOARD SUPERVISOR [facility] Corrections: (The following items were deleted from the chart) 12:16 09:05 Urine Dipstick-Ancillary ordered. [place] [id number]
[2021-10-24] MEDS ORDERED: KETOROLAC 30 MG/ML INJ ONE (11:49)
[2021-10-24 13:09] VITALS: BP 136/95; TEMP 97.1; O2SAT 95
== END 2021-10-24 12:40 | disposition home or self-care (01) ==
LOC: ER 08:20
DX: R10.9 Unspecified abdominal pain (principal); R11.0 Nausea; I10 Essential (primary) hypertension; F17.210 Nicotine dependence, cigarettes, uncomplicated
CPT/HCPCS: 85025; 36415; 83690; 80053; 99283; J7030; J2405

== ENCOUNTER 2021-10-26 03:37 | Emergency (ER) | payer OTHER ==
--- OUTSIDE RECORDS SUMMARY | 2021-10-26 03:42 | XMS REPORT | Continuity of Care Document ---
:1960 Author Organization [facility] t Address [address] [place] [address] Care Team Providers Name Role Phone Sharpless Primary Care Physician MATT SIMPSON Attending Clinician Unavailable MATT SIMPSON Attending Clinician Unavailable Doctor Unassigned, [place] Attending Clinician Unavailable WALLY KRISHNAMURTHY Attending Clinician Unavailable Natacha Brewster Attending Clinician Payers Payer Name Policy Type Policy Number Effective Date Expiration Date Sarina castelan [facility] [id number] 2017 00:00:00 PLUS Problems This patient has [...] s TRANSDER 5- ity of MAL 00:00: [place] [address] [facility] ACETAMIN DRUG Active Other-Cmnt Univ ers OPHEN INGREDI 5- ity of 00:00: [address] Branch Hmg-[employer]a Propensi Inactiv Reductas ty to e 2-28 e adverse 00:00: Inhibito reaction 00 rs to drug Nitrogly Propensi Active 2017-03 cerin ty to 1-08 adverse 00:00: reaction 00 to drug Social History Social Habit Start Date Stop Date Quantity Comments Source Sex Assigned At [facility] Alcohol intake 2016-05-01 2016-05-01 Current [facility] es 00:00:00 00:00:00 non-drinker of Medical nter alcohol (finding) Smoking Status Start Date Stop Date Source Current every day smoker 2016-05-01 00:00:00 [facility] Medications Ordered Filled Start Stop Current Ordering [...] mg capsule 00:00: 00 OXcarbazepi Yes 600mg [id number] Take [address] ne 2-23 [id number] mg by [facility] (TRILEPTAL) 10:23: 3D mouth [...] Goal Plan of Care Note [code = 26699-7] Goal Plan of Care Note [code = 37991-5] Goal Plan of Care Note [code = 75103-3] Goal Plan of Care Note [code = 48925-6] Goal Plan of Care Note [code = 20523-9] Goal Plan of Care Note [code = 21508-9] Goal Plan of Care Note [code = 34453-2] Goal Plan of Care Note [code = 94762-2] Goal Plan of Care Note [code = 79331-8] Goal Plan of Care Note [code = 89703-4] Goal Plan of Care Note [code = 08523-0] Goal Plan of Care Note [code = 86389-7] Goal Plan of Care Note [code = 97597-4] Goal Plan of Care Note [code = 52838-5] Goal Plan of Care Note [code = 24044-1] Goal Plan of Care Note [code = 60641-7] Goal Plan of Care Note [code = 11677-0] Goal Plan of Care Note [code = 98169-8] Goal Plan of Care Note [code = 10118-9] Goal Plan of Care Note [code = 11956-1] Goal Plan of Care Note [code = 83339-0] Goal Plan of Care Note [code = 06923-6] Goal Plan of Care Note [code = 09242-4] Goal Plan of Care Note [code = 64086-9] Goal Plan of Care Note [code = 31550-2] Goal Plan of Care Note [code = 32974-4] Goal Plan of Care Note [code = 60877-0] Goal Plan of Care Note [code = 91232-1] Goal Plan of Care Note [code = 60273-4] Goal Plan of Care Note [code = 60416-1] Goal Plan of Care Note [code = 71968-0] Goal Plan of Care Note [code = 01866-1] Goal Plan of Care Note [code = 24855-4] Goal Plan of Care Note [code = 50885-9] Goal Plan of Care Note [code = 85605-3] Goal Plan of Care Note [code = 67481-0] Goal Plan of Care Note [code = 72480-5] Goal Plan of Care Note [code = 60453-0] Goal Plan of Care Note [code = 13430-6] Goal Plan of Care Note [code = 83408-8] Goal Plan of Care Note [code = 72466-7] Goal Plan of Care Note [code = 57074-6] Goal Plan of Care Note [code = 75903-7] Goal Plan of Care Note [code = 86903-8] Goal Plan of Care Note [code = 97806-8] Goal Plan of Care Note [code = 73470-9] Goal Plan of Care Note [code = 79405-3] Goal Plan of Care Note [code = 33381-2] Goal Plan of Care Note [code = 37953-0] Goal Plan of Care Note [code = 22055-3] Goal Plan of Care Note [code = 43358-3] Encounters Start End Encounter Admission Attending Care Care Encounter Source Date/Time Date/Time Type Type Clinicians Facility Department ID 2021-06-01 Outpatient [facility] [id number] [place] 01:36:29 [id number] [facility] [address] 2021-09-17 2021-09-17 Outpatient [id number] aa [id number] 00:00:00 00:00:00 Visit [id number] 2020-08-03 2020-08-03 Outpatient MATT VÁSQUEZ [facility] [id number] Univers 10:00:00 10:00:00 MATT SIMPSON [id number] [facility] 2020-08-03 2020-08-03 Outpatient MATT VÁSQUEZ [facility] [id number] Univers 10:00:00 10:00:00 MATT SIMPSON [facility] 2020-07-25 2020-07-25 Orders Doctor FISH [id number] 00:00:00 00:00:00 Only Unassigned, [place] 350.1.13.10 [place] [facility] [id number] 2019-09-26 2019-09-26 Outpatient Bertin KRISHNAMURTHY [facility] [id number] Univers 16:00:00 16:00:00 [facility] 2019-09-26 2019-09-26 Outpatient R RAGHU, [facility] [id number] Univers 16:00:00 16:00:00 [facility] 2018-10-21 2018-10-21 Telephone [facility]amm, [facility] [id number] 00:00:00 00:00:00 Natacha Nguyen [id number] [place] 4.2.7.2.686 [place] [id number] [facility] [address] Results Test Description Test Time Test Comments Results Result Comments Source TSH, THIRD GENERATION 2021-06-27 05:15:49 Test Item Value Reference Range Interpretation Comme nts TSH, THIRD GENERATION (test code = 2821) 2.080 UIU/ML 0.400-4.100 HEMOGLOBIN [id number] 03:46:00 Test Item Value Reference Range Interpretation Comments HEMOGLOBIN A1c (test 6.6 % 4.2-5.6 H AMERIC AN DIABETES code = 35603) ASSOCIATION IDELINES FOR HGB A1C: PREDIABETES/INC REASED [...] INDICATED, ALL TESTING PER FORMED ATCLINICAL PATH [facility] [place] [address] [place] [address] 2192 LABORATORY DIRE CTOR: DIANA RUSS M.D. CLIA NUMBER [id number] [place]. [id number] LIPID [id number] 02:59:52 Test Item Value Reference Range Interpretation Comments CHOLESTEROL (test 292 MG/DL <200 H code = 2210) TRIGLYCERIDES (test 184 MG/DL <150 H code = 2232) HDL CHOLESTEROL (test 51 MG/DL >39 code = 2220) CALC LDL CHOL (test 205 MG/DL <100 H NOTE: C ALCULATED LDL code = 2237) IS BASED ON MLEBA-OLVERA METHOD WHICHINCLUDES ADJUSTABLE TRIGLYCERIDE:VL DL CHOLESTEROL RAT IO.THIS FACTOR VARIES B Y MEASURED TRIGLY CERIDE AND NON-HDLCHOL ESTEROL CONCENTRATIONS WITH INCREASED CALCU LATED LDL SEENIN HIGH ER TRIGLYCERIDE OR LOWER NON-HDL SPECIME NS. FOR MOREINFORMATION , SEE CLIENT ANNOUNCE MENT AT [email or web address] RISK RATIO LDL/HDL 4.02 RATIO <3.22 H (test code = 2238) [id number] 00:00:00 Test Item Value Reference Range Interpretation Comments TSH, THIRD GENERATION (test code 2.080 UIU/ML = 2821) [id number] 00:00:00 Test Item Value Reference Range Interpretation Comments TSH, THIRD GENERATION (test code 2.080 UIU/ML = 2821) LIPID [id number] 00:00:00 Test Item Value Reference Range Interpretation Comments CHOLESTEROL (test code = 2210) 292 MG/DL TRIGLYCERIDES (test code = 2232) 184 MG/DL HDL CHOLESTEROL (test code = 2220) 51 MG/DL CALC LDL CHOL (test code = 2237) 205 MG/DL RISK RATIO LDL/HDL (test code = 4.02 RATIO 2238) HEMOGLOBIN [id number] 00:00:00 Test Item Value Reference Range Interpretation Comments HEMOGLOBIN A1c (test code = 47073) 6.6 % HEMOGLOBIN [id number] 00:00:00 Test Item Value Reference Range Interpretation Comments HEMOGLOBIN A1c (test code = 32203) 6.6 % HEMOGLOBIN [id number] 00:00:00 Test Item Value Reference Range Interpretation Comments HEMOGLOBIN A1c (test code = 62706) 6.8 % HEMOGLOBIN [id number] 00:00:00 Test Item Value Reference Range Interpretation Comments HEMOGLOBIN A1c (test code = 58298) 6.8 % LIPID [id number] 00:00:00 Test Item Value Reference Range Interpretation Comments CHOLESTEROL (test code = 2210) 303 MG/DL TRIGLYCERIDES (test code = 2232) 191 MG/DL HDL CHOLESTEROL (test code = 2220) 61 MG/DL CALC LDL CHOL (test code = 2237) 205 MG/DL RISK RATIO LDL/HDL (test code = 3.36 RATIO 2238) [id number] 00:00:00 Test Item Value Reference Range Interpretation Comments TSH, THIRD GENERATION (test code 0.769 UIU/ML = 2821) [id number] 00:00:00 Test Item Value Reference Range Interpretation Comments TSH, THIRD GENERATION (test code 0.769 UIU/ML = 2821) COMPREHENSIVE METABOLIC [id number] 00:00:00 Test Item Value Reference Range Interpretation Comments GLUCOSE (test code = 2217) 131 MG/DL BUN (test code = 2208) 13 MG/DL CREATININE (test code = 2214) 0.65 MG/DL eGFR AMER. (test code 113 ML/MIN/1.73 = 65583) eGFR NON- AMER. (test 97 ML/MIN/1.73 code = 22386) CALC BUN/CREAT (test code = 20 RATIO [...] (test code = 2219) 23 U/L HEMOGLOBIN [id number] 00:00:00 Test Item Value Reference Range Interpretation Comments HEMOGLOBIN A1c (test code = 65955) 6.6 % HEMOGLOBIN [id number] 00:00:00 Test Item Value Reference Range Interpretation Comments HEMOGLOBIN A1c (test code = 59582) 6.6 % LIPID [id number] 00:00:00 Test Item Value Reference Range Interpretation Comments CHOLESTEROL (test code = 2210) 261 MG/DL TRIGLYCERIDES (test code = 2232) 159 MG/DL HDL CHOLESTEROL (test code = 2220) 82 MG/DL CALC LDL CHOL (test code = 2237) 150 MG/DL RISK RATIO LDL/HDL (test code = 1.83 RATIO 2238) COMPREHENSIVE METABOLIC [id number] 00:00:00 Test Item Value Reference Range Interpretation Comments GLUCOSE (test code = 2217) 144 MG/DL BUN (test code = 2208) 15 MG/DL CREATININE (test code = 2214) 0.85 MG/DL eGFR AMER. (test code 87 ML/MIN/1.73 = 17285) eGFR NON- AMER. (test 75 ML/MIN/1.73 code = 22211) CALC BUN/CREAT (test code = 18 RATIO [...] THYROX. BIND. CAPAC. (test code 1.1 = 88240) T4 (THYROXINE) (test code = 4.3 UG/DL 2819) CORRECTED T4 (FTI) (test code = 3.9 UG/DL 2820) TSH, THIRD GENERATION (test 18.900 UIU/ML code = 2821) HEMOGLOBIN [id number] 00:00:00 Test Item Value Reference Range Interpretation Comments HEMOGLOBIN A1c (test code = 44455) 6.7 % HEMOGLOBIN [id number] 00:00:00 Test Item Value Reference Range Interpretation Comments HEMOGLOBIN A1c (test code = 05888) 6.7 % LIPID [id number] 00:00:00 Test Item Value Reference Range Interpretation Comments CHOLESTEROL (test code = 2210) 267 MG/DL TRIGLYCERIDES (test code = 2232) 137 MG/DL HDL CHOLESTEROL (test code = 2220) 48 MG/DL CALC LDL CHOL (test code = 2237) 192 MG/DL RISK RATIO LDL/HDL (test code = 4.00 RATIO 2238) COMPREHENSIVE METABOLIC [id number] 00:00:00 Test Item Value Reference Range Interpretation Comments GLUCOSE (test code = 2217) 155 MG/DL BUN (test code = 2208) 14 MG/DL CREATININE (test code = 2214) 0.52 MG/DL eGFR AMER. (test code 122 ML/MIN/1.73 = 42344) eGFR NON- AMER. (test 105 ML/MIN/1.73 code = 29894) CALC BUN/CREAT (test code = 27 RATIO [...] THYROX. BIND. CAPAC. (test code 1.0 = 49972) T4 (THYROXINE) (test code = 4.7 UG/DL 2819) CORRECTED T4 (FTI) (test code = 4.7 UG/DL 2820) TSH, THIRD GENERATION (test code 0.201 UIU/ML = 2821) SARS-CoV-2 (COVID-19) by RT-PCR (HIGH RISK)2019-09-18 00:00:00 Test Item Value Reference Range Interpretation Comments SARS-CoV-2 INTERPRETATION (test NEGATIVE code = 32715) SOURCE (test code = 57675) NOT SPECIFIED [id number] 00:00:00 Test Item Value Reference Range Interpretation Comments TSH, THIRD GENERATION (test code 2.490 UIU/ML = 2821) [id number] 00:00:00 Test Item Value Reference Range Interpretation Comments TSH, THIRD GENERATION (test code 2.490 UIU/ML = 2821) HEMOGLOBIN [id number] 00:00:00 Test Item Value Reference Range Interpretation Comments HEMOGLOBIN A1c (test code = 20407) 6.4 % HEMOGLOBIN [id number] 00:00:00 Test Item Value Reference Range Interpretation Comments HEMOGLOBIN A1c (test code = 61801) 6.4 % COMPREHENSIVE METABOLIC [id number] 00:00:00 Test Item Value Reference Range Interpretation Comments GLUCOSE (test code = 2217) 206 MG/DL BUN (test code = 2208) 23 MG/DL CREATININE (test code = 2214) 0.67 MG/DL eGFR AMER. (test code 112 ML/MIN/1.73 = 49719) eGFR NON- AMER. (test 97 ML/MIN/1.73 code = 96252) CALC BUN/CREAT (test code = 34 RATIO [...] = 2219) 25 U/L VAGINAL PATHOGENS DNA [id number] 00:00:00 Test Item Value Reference Range Interpretation Comments MARK SPECIES (test code = ) NEGATIVE G. VAGINALIS (test code = ) NEGATIVE T. VAGINALIS (test code = ) NEGATIVE HEMOGLOBIN A1c [ADDED]2018-12-01 00:00:00 Test Item Value Reference Range Interpretation Comments HEMOGLOBIN A1c (test code = 29311) 6.7 % HEMOGLOBIN A1c [ADDED]2018-12-01 00:00:00 Test Item Value Reference Range Interpretation Comments HEMOGLOBIN A1c (test code = 36336) 6.7 % COMPREHENSIVE METABOLIC PANEL [ADDED]2018-12-01 00:00:00 Test Item Value Reference Range Interpretation Comments GLUCOSE (test code = 2217) 136 MG/DL BUN (test code = 2208) 15 MG/DL CREATININE (test code = 2214) 0.64 MG/DL eGFR AMER. (test code 115 ML/MIN/1.73 = 91594) eGFR NON- AMER. (test 99 ML/MIN/1.73 code = 05543) CALC BUN/CREAT (test code = 23 RATIO [...] code 1.280 UIU/ML = 2821) CBC W/AUTO [id number] 00:00:00 Test Item Value Reference Range Interpretation [...] code = 1015) 346 K/UL CBC W/AUTO [id number] 00:00:00 Test Item Value Reference Range Interpretation [...] (test code = 1015) 346 K/UL HEMOGLOBIN [id number] 00:00:00 Test Item Value Reference Range Interpretation Comments HEMOGLOBIN A1c (test code = 66766) 5.9 % HEMOGLOBIN [id number] 00:00:00 Test Item Value Reference Range Interpretation Comments HEMOGLOBIN A1c (test code = 78698) 5.9 % LIPID [id number] 00:00:00 Test Item Value Reference Range Interpretation Comments CHOLESTEROL (test code = 2210) 318 MG/DL TRIGLYCERIDES (test code = 2232) 263 MG/DL HDL CHOLESTEROL (test code = 2220) 51 MG/DL CALC LDL CHOL (test code = 2237) 214 MG/DL RISK RATIO LDL/HDL (test code = 4.20 RATIO 2238) COMPREHENSIVE METABOLIC [id number] 00:00:00 Test Item Value Reference Range Interpretation Comments GLUCOSE (test code = 2217) 113 MG/DL BUN (test code = 2208) 18 MG/DL CREATININE (test code = 2214) 0.70 MG/DL eGFR AMER. (test code 111 ML/MIN/1.73 = 53472) eGFR NON- AMER. (test 96 ML/MIN/1.73 code = 85743) CALC BUN/CREAT (test code = 26 RATIO [...] ALT (test code = 2219) 31 U/L [id number] 00:00:00 Test Item Value Reference Range Interpretation Comments TSH, THIRD GENERATION (test code 2.520 UIU/ML = 2821) [id number] 00:00:00 Test Item Value Reference Range Interpretation Comments TSH, THIRD GENERATION (test code 2.520 UIU/ML = 2821) CULTURE, [id number] 00:00:00 Test Item Value Reference Range Interpretation Comments CULTURE, URINE (test SPECIMEN NUMBER: code = 82881) [id number] CULTURE, [id number] 00:00:00 Test Item Value Reference Range Interpretation Comments CULTURE, URINE (test SPECIMEN NUMBER: code = 48217) [id number] BASIC METABOLIC [id number] 00:00:00 Test Item Value Reference Range Interpretation Comments GLUCOSE (test code = 2217) 135 MG/DL BUN (test code = 2208) 25 MG/DL CREATININE (test code = 2214) 0.76 MG/DL eGFR AMER. (test code 101 ML/MIN/1.73 = 89910) eGFR NON- AMER. (test 87 ML/MIN/1.73 code = 41253) SODIUM (test code = 2231) 139 MEQ/L POTASSIUM (test code = 2228) 4.7 MEQ/L CHLORIDE (test code = 2215) 99 MEQ/L CARBON DIOXIDE (test code = 26 MEQ/L 2206) CALCIUM (test code = 2209) 9.4 MG/DL LIPID [id number] 00:00:00 Test Item Value Reference Range Interpretation Comments CHOLESTEROL (test code = 2210) 262 MG/DL TRIGLYCERIDES (test code = 2232) 300 MG/DL HDL CHOLESTEROL (test code = 2220) 36 MG/DL CALC LDL CHOL (test code = 2237) 166 MG/DL RISK RATIO LDL/HDL (test code = 4.61 RATIO 2238) HEMOGLOBIN [id number] 00:00:00 Test Item Value Reference Range Interpretation Comments HEMOGLOBIN A1c (test code = 87878) 6.2 % HEMOGLOBIN [id number] 00:00:00 Test Item Value Reference Range Interpretation Comments HEMOGLOBIN A1c (test code = 87354) 6.2 % [id number] 00:00:00 Test Item Value Reference Range Interpretation Comments TSH, THIRD GENERATION (test code 0.988 UIU/ML = 2821) [id number] 00:00:00 Test Item Value Reference Range Interpretation Comments TSH, THIRD GENERATION (test code 0.988 UIU/ML = 2821) COMPREHENSIVE METABOLIC [id number] 00:00:00 Test Item Value Reference Range Interpretation Comments GLUCOSE (test code = 2217) 109 MG/DL BUN (test code = 2208) 25 MG/DL CREATININE (test code = 2214) 0.78 MG/DL eGFR AMER. (test code 98 ML/MIN/1.73 = 11625) eGFR NON- AMER. (test 84 ML/MIN/1.73 code = 52647) CALC BUN/CREAT (test code = 32 RATIO [...] (test code = 2219) 25 U/L LIPID [id number] 00:00:00 Test Item Value Reference Range Interpretation Comments CHOLESTEROL (test code = 2210) 295 MG/DL TRIGLYCERIDES (test code = 2232) 218 MG/DL HDL CHOLESTEROL (test code = 2220) 46 MG/DL CALC LDL CHOL (test code = 2237) 205 MG/DL RISK RATIO LDL/HDL (test code = 4.47 RATIO 2238) HEMOGLOBIN [id number] 00:00:00 Test Item Value Reference Range Interpretation Comments HEMOGLOBIN A1c (test code = 39593) 7.0 % HEMOGLOBIN [id number] 00:00:00 Test Item Value Reference Range Interpretation Comments HEMOGLOBIN A1c (test code = 11511) 7.0 % [id number] 00:00:00 Test Item Value Reference Range Interpretation Comments TSH, THIRD GENERATION (test code 0.565 UIU/ML = 2821) [id number] 00:00:00 Test Item Value Reference Range Interpretation Comments TSH, THIRD GENERATION (test code 0.565 UIU/ML = 2821) [id number] 00:00:00 Test Item Value Reference Range Interpretation Comments TSH, THIRD GENERATION (test code 0.379 UIU/ML = 2821) [id number] 00:00:00 Test Item Value Reference Range Interpretation Comments TSH, THIRD GENERATION (test code 0.379 UIU/ML = 2821) CULTURE, [id number] 00:00:00 Test Item Value Reference Range Interpretation Comments CULTURE, URINE (test SPECIMEN NUMBER: code = 19286) [id number] COMPREHENSIVE METABOLIC [id number] 00:00:00 Test Item Value Reference Range Interpretation Comments GLUCOSE (test code = 2217) 128 MG/DL BUN (test code = 2208) 26 MG/DL CREATININE (test code = 2214) 0.92 MG/DL eGFR AMER. (test code 81 ML/MIN/1.73 = 18905) eGFR NON- AMER. (test 70 ML/MIN/1.73 code = 39772) CALC BUN/CREAT (test code = 28 RATIO [...] code = 2219) 29 U/L ACUTE HEPATITIS [id number] 00:00:00 Test Item Value Reference Range Interpretation Comments HEPATITIS A IgM (test code = NON-REACTIVE 25078) HEPATITIS B CORE IgM (test code NON-REACTIVE = 4644) HEPATITIS B SURF AG (test code = NON-REACTIVE 2230) HEPATITIS C ANTIBODY (test code NON-REACTIVE = 9621) INTERPRETATION HEPATITIS A: (NOTE) (test code = 2552) INTERPRETATION HEPATITIS B: (NOTE) (test code = 29353) INTERPRETATION HEPATITIS C: (NOTE) (test code = 90855) [id number] 00:00:00 Test Item Value Reference Range Interpretation Comments AMYLASE (test code = 2205) 32 U/L [id number] 00:00:00 Test Item Value Reference Range Interpretation Comments LIPASE (test code = 205) 22 U/L [id number] 00:00:00 Test Item Value Reference Range Interpretation Comments LIPASE (test code = 2057) 22 U/L [id number] 00:00:00 Test Item Value Reference Range Interpretation Comments TSH, THIRD GENERATION (test code 4.890 UIU/ML = 2821) [id number] 00:00:00 Test Item Value Reference Range Interpretation Comments TSH, THIRD GENERATION (test code 4.890 UIU/ML = 2821) COMPREHENSIVE METABOLIC [id number] 00:00:00 Test Item Value Reference Range Interpretation Comments GLUCOSE (test code = 2217) 121 MG/DL BUN (test code = 2208) 40 MG/DL CREATININE (test code = 2214) 1.48 MG/DL eGFR AMER. (test code 45 ML/MIN/1.73 = 94929) eGFR NON- AMER. (test 39 ML/MIN/1.73 code = 17785) CALC BUN/CREAT (test code = 27 RATIO [...] (test code = 2219) 20 U/L LIPID [id number] 00:00:00 Test Item Value Reference Range Interpretation Comments CHOLESTEROL (test code = 2210) 261 MG/DL TRIGLYCERIDES (test code = 2232) 165 MG/DL HDL CHOLESTEROL (test code = 2220) 58 MG/DL CALC LDL CHOL (test code = 2237) 170 MG/DL RISK RATIO LDL/HDL (test code = 2.93 RATIO 2238) CBC W/AUTO [id number] 00:00:00 Test Item Value Reference Range Interpretation [...] code = 1015) 378 K/UL CBC W/AUTO [id number] 00:00:00 Test Item Value Reference Range Interpretation [...] (test code = 1015) 378 K/UL HEMOGLOBIN [id number] 00:00:00 Test Item Value Reference Range Interpretation Comments HEMOGLOBIN A1c (test code = 57528) 6.4 % HEMOGLOBIN [id number] 00:00:00 Test Item Value Reference Range Interpretation Comments HEMOGLOBIN A1c (test code = 65373) 6.4 % [id number] 00:00:00 Test Item Value Reference Range Interpretation Comments TSH (test code = 2821) 5.290 UIU/ML [id number] 00:00:00 Test Item Value Reference Range Interpretation Comments TSH (test code = 2821) 5.290 UIU/ML THYROID II PROFILE (T3U, T4, T7, TSH)[id number] 00:00:00 Test Item Value Reference Range Interpretation Comments T3 UPTAKE (test code = 2817) 32.3 % T4 (THYROXINE) (test code = 5.2 UG/DL 281) CALCULATED T7 (FTI) (test code = 1.68 2820) TSH (test code = 2821) 1.030 UIU/ML COMPREHENSIVE METABOLIC [id number] 00:00:00 Test Item Value Reference Range Interpretation Comments GLUCOSE (test code = 2217) 106 MG/DL BUN (test code = 2208) 23 MG/DL CREATININE (test code = 2214) 0.66 MG/DL eGFR AMER. (test code 114 ML/MIN/1.73 = 09710) eGFR NON- AMER. (test 99 ML/MIN/1.73 code = 02260) CALC BUN/CREAT (test code = 35 RATIO [...] code = 2821) 0.335 UIU/ML COMPREHENSIVE METABOLIC [id number] 00:00:00 Test Item Value Reference Range Interpretation Comments GLUCOSE (test code = 2217) 103 MG/DL BUN (test code = 2208) 15 MG/DL CREATININE (test code = 2214) 0.77 MG/DL eGFR AMER. (test code 101 ML/MIN/1.73 = 39044) eGFR NON- AMER. (test 87 ML/MIN/1.73 code = 58134) CALC BUN/CREAT (test code = 19 RATIO [...] (test code = 2821) 0.424 UIU/ML CULTURE, [id number] 00:00:00 Test Item Value Reference Range Interpretation Comments CULTURE, URINE (test SPECIMEN NUMBER: code = 01095) [id number] CULTURE, [id number] 00:00:00 Test Item Value Reference Range Interpretation Comments CULTURE, URINE (test SPECIMEN NUMBER: code = 45931) [id number]
[2021-10-26] MEDS ORDERED: NA CHLORIDE 0.9% 1,000 ML ONE (03:52)
[2021-10-26 04:28] LABS: Absolute Lymphocytes (CBC) 2.7 K/uL (0.7-4.9); Hematocrit 40.9 % (36.0-45.0); Lymphocytes % 34.8 % (15.3-44.8); MCV 92.9 fL (80-100); MPV 7.1 fL (7.6-11.3)
[2021-10-26 04:45] LABS: Albumin 3.5 g/dL (3.4-5.0); Bilirubin Total 0.2 mg/dL (0.2-1.0); Blood Morphology Comment NOT SEEN (NOT SEEN); Platelet Estimate ADEQ; Potassium 3.9 mmol/L (3.5-5.1); Protein, Total 7.6 g/dL (6.4-8.2); White Blood Cell Scan OK (OK)
[2021-10-26] MEDS ORDERED: ONDANSETRON 4 MG/2 ML VIAL ONE (05:12)
[2021-10-26] MEDS ORDERED: FAMOTIDINE 20 MG/2 ML VIAL IV ONE (05:12)
[2021-10-26] MEDS ORDERED: KETOROLAC 30 MG/ML INJ ONE (05:12)
--- NOTE | 2021-10-26 06:17 | ER ---
Nurse's Notes [facility] Name: Jaimie Amanda Age: 60 yrs Sex: Female : 1960 Arrival Date: 10/26/2021 Time: 03:40 Bed 5 Private MD: Diagnosis: Upper abdominal pain, unspecified-Recurrent Presentation: 10/26 03:54 Chief complaint: Patient states: "I am having a really sharp pain in abdomen, it is tw5 like it was two days ago but worse.". Coronavirus screen: Vaccine status: Patient reports receiving the 2nd dose of the covid vaccine. Moderna. Ebola Screen: Patient negative for fever greater than or equal to 101.5 degrees Fahrenheit, and additional compatible Ebola Virus Disease symptoms Patient denies exposure to infectious person. Patient denies travel to an Ebola-affected area in the 21 days before illness onset. Initial Sepsis Screen: Does the patient meet any 2 criteria? No. Patient's initial sepsis screen is negative. Does the patient have a suspected source of infection? No. Patient's initial sepsis screen is negative. Risk Assessment: Do you want to hurt yourself or someone else? Patient reports no desire to harm self or others. Onset of symptoms was October 26, 2021 at 00:00. 03:54 Method Of Arrival: Ambulatory tw5 03:54 Acuity: ZHEN 3 tw5 Triage Assessment: 04:00 General: Appears in no apparent distress. Behavior is calm, cooperative. Pain: Pain tw5 currently is 9 out of 10 on a pain scale. GI: Reports nausea. Historical: - Allergies: 04:00 No Known Allergies; tw5 - PMHx: 04:00 Anxiety; depressive disorder; diabetes mellitus; Hypertensive disorder; Hypothyroidism; tw5 - PSHx: 04:00 Thyroidectomy; tw5 - Immunization history:: Flu vaccine is up to date. - Social history:: Smoking status: Patient reports the use of cigarette tobacco products, smokes one pack cigarettes per day. Screenin:00 Abuse screen: Denies threats or abuse. Nutritional screening: No deficits noted. jb4 Tuberculosis screening: No symptoms or risk factors identified. Fall Risk None identified. Assessment: 04:00 General: Appears in no apparent distress. uncomfortable, Behavior is calm, cooperative, jb4 appropriate for age. Pain: Complains of pain in right lower quadrant Pain does not radiate. Pain currently is 10 out of 10 on a pain scale. Neuro: Level of Consciousness is awake, alert, obeys commands, Oriented to person, place, time, situation. Cardiovascular: Patient's skin is warm and dry. Respiratory: Airway is patent Respiratory effort is even, unlabored, Respiratory pattern is regular, symmetrical. GI: Abdomen is flat, non-distended, Reports lower abdominal pain. Derm: Skin is intact, Skin is pink, warm \\T\\ dry. 05:20 Reassessment: Patient appears in no apparent distress at this time. Patient and/or jb4 family updated on plan of care and expected duration. Pain level reassessed. Patient is alert, oriented x 3, equal unlabored respirations, skin warm/dry/pink. 05:25 Reassessment: Provider notified pt continues to have pain, no new orders at this time. jb4 05:56 Reassessment: Patient appears in no apparent distress at this time. Patient and/or jb4 family updated on plan of care and expected duration. Pain level reassessed. Patient is alert, oriented x 3, equal unlabored respirations, skin warm/dry/pink. Pt came to main nurses station to inform provider that her pain persist. No new orders at this time. Vital Signs: 03:54 BP 190 / 103; Pulse 93; Resp 18; Temp 97.4; Pulse Ox 96% on R/A; Weight 71.67 kg; tw5 Height 5 ft. 2 in. (157.48 cm); Pain 9/10; 05:00 BP 140 / 112; Pulse 77; Resp 16; Pulse Ox 95% on R/A; jb4 05:30 BP 164 / 80; Pulse 80; Resp 16; Pulse Ox 97% on R/A; jb4 03:54 Body Mass Index 28.90 (71.67 kg, 157.48 cm) tw5 ED Course: 03:40 Patient arrived in ED. bp1 03:50 Tera Raymond MD is Attending Physician. kdr 03:55 Bharathi Campos, CATY is Primary Nurse. jb4 04:00 Triage completed. tw5 04:00 Arm band placed on. tw5 04:00 Patient has correct armband on for positive identification. Placed in gown. Bed in low jb4 position. Call light in reach. Side rails up X 1. Client placed on continuous cardiac and pulse oximetry monitoring. NIBP monitoring applied. 04:20 CBC with Diff Sent. jb4 04:20 CMP Sent. jb4 04:20 Lipase Sent. jb4 05:29 Abdomen 1 View (KUB) XRAY In Process Unspecified. EDMS 06:20 No provider procedures requiring assistance completed. Patient did not have IV access jb4 during this emergency room visit. IV discontinued, intact, bleeding controlled, No redness/swelling at site. Pressure dressing applied. Administered Medications: 05:09 Drug: Ketorolac 15 mg Route: IVP; Site: left forearm; jb4 05:25 Follow up: Response: No adverse reaction; No change in condition jb4 05:10 Drug: Zofran (Ondansetron) 4 mg Route: IVP; Site: left forearm; jb4 06:22 Follow up: Response: No adverse reaction; Marked relief of symptoms jb4 05:12 Drug: Pepcid (famotidine) 20 mg Route: IVP; Site: left forearm; jb4 06:22 Follow up: Response: No adverse reaction jb4 Medication: 06:19 VIS not applicable for this client. jb4 Outcome: 06:16 Discharge ordered by . kdr 06:20 Discharged to home ambulatory. jb4 06:20 Condition: stable 06:20 Discharge instructions given to patient, Instructed on discharge instructions, follow up and referral plans. Demonstrated understanding of instructions, follow-up care. 06:23 Patient left the ED. jb4 Signatures: Dispatcher [employer] EDTera Law MD MD kdr Bryson, James, RN RN jb4 Mini [place] Tiffany 5 Corrections: (The following items were deleted from the chart) 06:23 06:22 Reassessment: Informed provider that pt heart rate continues to change from jb4 80-90's to 130's, no new orders at this time. jb4 06:23 06:00 Reassessment: Informed provider that pt heart rate continues to change from jb4 80-90's to 130's, no new orders at this time. jb4
--- NOTE | 2021-10-26 06:17 | EDPHYS ---
Physician Documentation [facility] Name: Jaimie Amanda Age: 60 yrs Sex: Female : 1960 Arrival Date: 10/26/2021 Time: 03:40 Bed 5 Private MD: ED Physician Tera Raymond HPI: 10/26 19:27 This 60 yrs old Female presents to ER via Ambulatory with complaints of Abdominal Pain. kdr 19:27 The patient presents with abdominal pain in the upper abdomen, in the right upper kdr quadrant. Onset: The symptoms/episode began/occurred suddenly, just prior to arrival. The symptoms do not radiate. Associated signs and symptoms: Pertinent positives: nausea, Pertinent negatives: blood in stools, chest pain, constipation, diarrhea, dysuria, fever, headache, hematuria, palpitations, shortness of breath, vaginal discharge, vomiting. The symptoms are described as achy, constant, sharp. Modifying factors: The symptoms are alleviated by nothing, the symptoms are aggravated by nothing. Severity of pain: At its worst the pain was moderate severe just prior to arrival, in the emergency department the pain is unchanged Patient is seen here on a regular basis for same or similar problems. I discussed with her the number of CAT scans that she has had of her abdomen and the need to differentiate between a change in nature and severity of the current pain versus recurrence of prior pain. If in fact the pain is significantly different than her prior episodes that we would need to implement a more thorough investigation including repeat CAT scans however she has had 2 dozen CAT scans so far this year.. The patient has experienced similar episodes in the past, multiple times, chronically. The patient has been recently seen by a physician: The patient has been recently seen at the [facility] Emergency Department, yesterday. Historical: - Allergies: 04:00 No Known Allergies; tw5 - PMHx: 04:00 Anxiety; depressive disorder; diabetes mellitus; Hypertensive disorder; Hypothyroidism; tw5 - PSHx: 04:00 Thyroidectomy; tw5 - Immunization history:: Flu vaccine is up to date. - Social history:: Smoking status: Patient reports the use of cigarette tobacco products, smokes one pack cigarettes per day. ROS: 19:27 Constitutional: Negative for fever, chills, and weight loss, Eyes: Negative for injury, kdr pain, redness, and discharge, ENT: Negative for injury, pain, and discharge, Neck: Negative for injury, pain, and swelling, Cardiovascular: Negative for chest pain, palpitations, and edema, Respiratory: Negative for shortness of breath, cough, wheezing, and pleuritic chest pain, Back: Negative for injury and pain, : Negative for injury, bleeding, discharge, and swelling, MS/Extremity: Negative for injury and deformity, Skin: Negative for injury, rash, and discoloration, Neuro: Negative for headache, weakness, numbness, tingling, and seizure activity. Psych: Negative for depression, anxiety, suicide ideation, homicidal ideation, and hallucinations, Allergy/Immunology: Negative for hives, rash, and allergies, Endocrine: Negative for neck swelling, polydipsia, polyuria, polyphagia, and marked weight changes, Hematologic/Lymphatic: Negative for swollen nodes, abnormal bleeding, and unusual bruising. 19:27 Abdomen/GI: Positive for abdominal pain, nausea, Negative for vomiting, abdominal cramps, abdominal distension, anorexia, dysphagia, hematemesis, black/tarry stool, rectal pain, rectal bleeding, bowel incontinence. Exam: 19:27 Constitutional: This is a well developed, well nourished patient who is awake, alert, kdr and in no acute distress. Head/Face: Normocephalic, atraumatic. Eyes: Pupils equal round and reactive to light, extra-ocular motions intact. Lids and lashes normal. Conjunctiva and sclera are non-icteric and not injected. Cornea within normal limits. Periorbital areas with no swelling, redness, or edema. Neck: Trachea midline, no thyromegaly or masses palpated, and no cervical lymphadenopathy. Supple, full range of motion without nuchal rigidity, or vertebral point tenderness. No Meningismus. Chest/axilla: Normal chest wall appearance and motion. Nontender with no deformity. No lesions are appreciated. Cardiovascular: Regular rate and rhythm with a normal S1 and S2. No gallops, murmurs, or rubs. Normal PMI, no JVD. No pulse deficits. Respiratory: Lungs have equal breath sounds bilaterally, clear to auscultation and percussion. No rales, rhonchi or wheezes noted. No increased work of breathing, no retractions or nasal flaring. Back: No spinal tenderness. No costovertebral tenderness. Full range of motion. Skin: Warm, dry with normal turgor. Normal color with no rashes, no lesions, and no evidence of cellulitis. MS/ Extremity: Pulses equal, no cyanosis. Neurovascular intact. Full, normal range of motion. Neuro: Awake and alert, GCS 15, oriented to person, place, time, and situation. Cranial nerves II-XII grossly intact. Motor strength 5/5 in all extremities. Sensory grossly intact. Cerebellar exam normal. Normal gait. Psych: Awake, alert, with orientation to person, place and time. Behavior, mood, and affect are within normal limits. 19:27 Abdomen/GI: Inspection: abdomen appears normal, Bowel sounds: active, all quadrants, Palpation: soft, mild abdominal tenderness, in the right upper quadrant. Vital Signs: 03:54 BP 190 / 103; Pulse 93; Resp 18; Temp 97.4; Pulse Ox 96% on R/A; Weight 71.67 kg; tw5 Height 5 ft. 2 in. (157.48 cm); Pain 9/10; 05:00 BP 140 / 112; Pulse 77; Resp 16; Pulse Ox 95% on R/A; jb4 05:30 BP 164 / 80; Pulse 80; Resp 16; Pulse Ox 97% on R/A; jb4 03:54 Body Mass Index 28.90 (71.67 kg, 157.48 cm) tw5 MDM: 06:16 Patient medically screened. kdr 19:27 Data reviewed: vital signs, nurses notes, lab test result(s). Counseling: I had a kdr detailed discussion with the patient and/or guardian regarding: the historical points, exam findings, and any diagnostic results supporting the discharge/admit diagnosis, lab results, the need for outpatient follow up. ED course: After further discussion of the patient's presentation, exam and vital signs. Patient felt that she would be sufficiently well to go home and continue her care there and follow-up with her physician. Patient ambulated out of the department without any evidence of any acute illness or injury. She was apparently happy with the plan for discharge and follow-up. 10/26 03:51 Order name: CBC with Diff; Complete Time: 05:49 kdr 10/26 03:51 Order name: CMP; Complete Time: : kdr 10/26 03:51 Order name: Lipase; Complete Time: : kdr 10/26 04:22 Order name: Abdomen 1 View (KUB) XRAY kdr 10/26 04:40 Order name: CBC Smear Scan; Complete Time: 05:49 EDMS 10/26 03:51 Order name: IV Saline Lock; Complete Time: 05:13 kdr 10/26 03:51 Order name: Labs collected and sent; Complete Time: 04:26 kdr Administered Medications: 05:09 Drug: Ketorolac 15 mg Route: IVP; Site: left forearm; jb4 05:25 Follow up: Response: No adverse reaction; No change in condition jb4 05:10 Drug: Zofran (Ondansetron) 4 mg Route: IVP; Site: left forearm; jb4 06:22 Follow up: Response: No adverse reaction; Marked relief of symptoms jb4 05:12 Drug: Pepcid (famotidine) 20 mg Route: IVP; Site: left forearm; jb4 06:22 Follow up: Response: No adverse reaction jb4 Disposition Summary: 10/26/21 06:16 Discharge Ordered Location: Home kdr Problem: an acute exacerbation kdr Symptoms: have improved kdr Condition: Stable kdr Diagnosis - Upper abdominal pain, unspecified - Recurrent kdr Followup: kdr - With: Private Physician - When: 2 - 3 days - Reason: If symptoms return, Further diagnostic work-up, Recheck today's complaints, Continuance of care, Re-evaluation by your physician Forms: - Medication Reconciliation Form kdr - Thank You Letter kdr - Antibiotic Education kdr - Prescription Opioid Use kdr Signatures: Dispatcher [employer] EDMS Tera Raymond MD MD kdr Bharathi Campos RN RN jb4 Madhavi Yeboah tw5 Corrections: (The following items were deleted from the chart) 06:13 05:53 Abdomen Pelvis W Con+CT.RAD.BRZ ordered. EDMS EDMS
[2021-10-26 07:03] VITALS: TEMP 97.4
[2021-10-26 07:08] VITALS: BP 164/80; O2SAT 97
--- NOTE | 2021-10-26 07:50 | RAD REPORT ---
EXAM DESCRIPTION: RAD - Abdomen 1 View (KUB) - 10/26/2021 5:27 am CLINICAL HISTORY: ABD PAIN COMPARISON: Abdomen 1 View (KUB) dated 08/25/2019 FINDINGS: Moderate amount of stool is present within the colon. No colon distention seen. No acute s mall bowel finding identifiable. No obstruction, free air or pneumatosis. No suspicious calcification s. Degenerative changes are present at the lumbosacral junction. Final report was delayed due to technical issues with the overnight service. IMPRESSION: No obstruction, free air or emergent finding identifiable.
== END 2021-10-26 06:23 | disposition home or self-care (01) ==
LOC: ER 03:37
DX: R10.11 Right upper quadrant pain (principal); I10 Essential (primary) hypertension; R11.0 Nausea; F17.210 Nicotine dependence, cigarettes, uncomplicated
CPT/HCPCS: 85025; 36415; 83690; 80053; 74018; 96375; 96374; 99283; J7030; J2405

== ENCOUNTER 2021-10-30 09:30 | Emergency (ER) | payer OTHER ==
--- OUTSIDE RECORDS SUMMARY | 2021-10-30 09:35 | XMS REPORT | Continuity of Care Document ---
:[address] [facility] t Address [address] [place] [address] Care Team Providers Name Role Phone Sharpless Primary Care Physician MATT SIMPSON Attending Clinician Unavailable MATT SIMPSON Attending Clinician Unavailable Doctor Unassigned, [place] Attending Clinician Unavailable WALLY KRISHNAMURTHY Attending Clinician Unavailable Natacha Brewster Attending Clinician Payers Payer Name Policy Type Policy Number Effective Date Expiration Date Sarina castelan [facility] [id number] 2017 00:00:00 PLUS Problems This patient has [...] s TRANSDER 5- ity of MAL 00:00: [place] [address] [facility] ACETAMIN DRUG Active Other-Cmnt Univ ers OPHEN INGREDI 5- ity of 00:00: [address] Branch [facility] Propensi Inactiv Reductas ty to e 2-28 e adverse 00:00: Inhibito reaction 00 rs to drug Nitrogly Propensi Active 2017-03 cerin ty to 1-08 adverse 00:00: reaction 00 to drug Social History Social Habit Start Date Stop Date Quantity Comments Source Sex Assigned At [facility] Alcohol intake 2016-05-01 2016-05-01 Current [facility] es 00:00:00 00:00:00 non-drinker of [...] mg capsule 00:00: 00 OXcarbazepi Yes 600mg [id number] Take [address] ne 2-23 [id number] mg by [facility] (TRILEPTAL) 10:23: 3D mouth [...] Goal Plan of Care Note [code = 20531-5] Goal Plan of Care Note [code = 69608-6] Goal Plan of Care Note [code = 39892-3] Goal Plan of Care Note [code = 05771-2] Goal Plan of Care Note [code = 27708-7] Goal Plan of Care Note [code = 53957-9] Goal Plan of Care Note [code = 07046-7] Goal Plan of Care Note [code = 07550-7] Goal Plan of Care Note [code = 63833-9] Goal Plan of Care Note [code = 12881-3] Goal Plan of Care Note [code = 35771-2] Goal Plan of Care Note [code = 31604-0] Goal Plan of Care Note [code = 89736-8] Goal Plan of Care Note [code = 50669-1] Goal Plan of Care Note [code = 19982-1] Goal Plan of Care Note [code = 72938-4] Goal Plan of Care Note [code = 14096-2] Goal Plan of Care Note [code = 61017-1] Goal Plan of Care Note [code = 18802-0] Goal Plan of Care Note [code = 62612-8] Goal Plan of Care Note [code = 84948-8] Goal Plan of Care Note [code = 55267-0] Goal Plan of Care Note [code = 21004-6] Goal Plan of Care Note [code = 05096-4] Goal Plan of Care Note [code = 32871-9] Goal Plan of Care Note [code = 38118-5] Goal Plan of Care Note [code = 16555-7] Goal Plan of Care Note [code = 39908-9] Goal Plan of Care Note [code = 45786-9] Goal Plan of Care Note [code = 21129-2] Goal Plan of Care Note [code = 96589-7] Goal Plan of Care Note [code = 35052-3] Goal Plan of Care Note [code = 77628-8] Goal Plan of Care Note [code = 36563-7] Goal Plan of Care Note [code = 12871-4] Goal Plan of Care Note [code = 45226-2] Goal Plan of Care Note [code = 44641-6] Goal Plan of Care Note [code = 83913-0] Goal Plan of Care Note [code = 86434-0] Goal Plan of Care Note [code = 43362-1] Goal Plan of Care Note [code = 45214-8] Goal Plan of Care Note [code = 84753-8] Goal Plan of Care Note [code = 46880-5] Goal Plan of Care Note [code = 94379-6] Goal Plan of Care Note [code = 02279-1] Goal Plan of Care Note [code = 85378-7] Goal Plan of Care Note [code = 11546-1] Goal Plan of Care Note [code = 93873-9] Goal Plan of Care Note [code = 18200-2] Goal Plan of Care Note [code = 31953-2] Goal Plan of Care Note [code = 69242-2] Encounters Start End Encounter Admission Attending Care Care Encounter Source Date/Time Date/Time Type Type Clinicians Facility Department ID 2021-06-01 Outpatient [facility] [id number] [place] 01:36:29 [id number] [facility] 2021-09-17 2021-09-17 Outpatient oti4czja- [id number] aa [id number] 00:00:00 00:00:00 Visit 935a-4f50 35a-4f50-b -m30j-w0s 77d-c2ba85 [id number] 2020-08-03 2020-08-03 Outpatient MATT VÁSQUEZ [facility] [id number] Univers 10:00:00 10:00:00 MATT SIMPSON [id number] [facility] 2020-08-03 2020-08-03 Outpatient MATT VÁSQUEZ [facility] [id number] Univers 10:00:00 10:00:00 MATT SIMPSON [facility] 2020-07-25 2020-07-25 Orders Doctor FISH [id number] 00:00:00 00:00:00 Only Unassigned, BK 350.1.13.10 [place] [facility] [id number] 2019-09-26 2019-09-26 Outpatient Bertin KRISHNAMURTHY [facility] [id number]-20 Univers 16:00:00 16:00:[address] [facility] 2019-09-26 2019-09-26 Outpatient R RAGHU, [facility] [id number] Univers 16:00:00 16:00:00 [facility] 2018-10-21 2018-10-21 Tele[address] Gramm, [facility] [id number] 00:00:00 00:00:00 Natacha Nguyen [id number] [place] 4.2.7.2.686 [place] [id number] [facility] [address] Building Results Test Description Test Time Test Comments Results Result Comments Source TSH, THIRD GENERATION 2021-06-27 05:15:49 Test Item Value Reference Range Interpretation Comme nts TSH, THIRD GENERATION (test code = 2821) 2.080 UIU/ML 0.400-4.100 HEMOGLOBIN [id number] 03:46:00 Test Item Value Reference Range Interpretation Comments HEMOGLOBIN A1c (test 6.6 % 4.2-5.6 H AMERIC AN DIABETES code = 18335) ASSOCIATION IDELINES FOR HGB A1C: PREDIABETES/INC REASED [...] INDICATED, ALL TESTING PER FORMED ATCLINICAL PATH [facility] [place]. [address] [place] [address] 6521 LABORATORY DIRE CTOR: DIANA RUSS M.D. CLIA NUMBER [id number] [place] [id number] LIPID [id number] 02:59:52 Test Item Value Reference Range Interpretation [...] MOREINFORMATION , SEE CLIENT ANNOUNCE MENT AT [email or web address] RISK RATIO LDL/HDL 4.02 RATIO <3.22 H (test code = 2238) [id number] 00:00:00 Test Item Value Reference Range Interpretation Comments TSH, THIRD GENERATION (test code 2.080 UIU/ML = 2821) [id number] 00:00:00 Test Item Value Reference Range Interpretation Comments TSH, THIRD GENERATION (test code 2.080 UIU/ML = 2821) LIPID [id number] 00:00:00 Test Item Value Reference Range Interpretation Comments CHOLESTEROL (test code = 2210) 292 MG/DL TRIGLYCERIDES (test code = 2232) 184 MG/DL HDL CHOLESTEROL (test code = 2220) 51 MG/DL CALC LDL CHOL (test code = 2237) 205 MG/DL RISK RATIO LDL/HDL (test code = 4.02 RATIO 2238) HEMOGLOBIN [id number] 00:00:00 Test Item Value Reference Range Interpretation Comments HEMOGLOBIN A1c (test code = 25307) 6.6 % HEMOGLOBIN [id number] 00:00:00 Test Item Value Reference Range Interpretation Comments HEMOGLOBIN A1c (test code = 00921) 6.6 % HEMOGLOBIN [id number] 00:00:00 Test Item Value Reference Range Interpretation Comments HEMOGLOBIN A1c (test code = 77777) 6.8 % HEMOGLOBIN [id number] 00:00:00 Test Item Value Reference Range Interpretation Comments HEMOGLOBIN A1c (test code = 95999) 6.8 % LIPID [id number] 00:00:00 Test Item Value Reference Range Interpretation Comments CHOLESTEROL (test code = 2210) 303 MG/DL TRIGLYCERIDES (test code = 2232) 191 MG/DL HDL CHOLESTEROL (test code = 2220) 61 MG/DL CALC LDL CHOL (test code = 2237) 205 MG/DL RISK RATIO LDL/HDL (test code = 3.36 RATIO 2238) [id number] 00:00:00 Test Item Value Reference Range Interpretation Comments TSH, THIRD GENERATION (test code 0.769 UIU/ML = 2821) [id number] 00:00:00 Test Item Value Reference Range Interpretation Comments TSH, THIRD GENERATION (test code 0.769 UIU/ML = 2821) COMPREHENSIVE METABOLIC [id number] 00:00:00 Test Item Value Reference Range Interpretation Comments GLUCOSE (test code = 2217) 131 MG/DL BUN (test code = 2208) 13 MG/DL CREATININE (test code = 2214) 0.65 MG/DL eGFR AMER. (test code 113 ML/MIN/1.73 = 55833) eGFR NON- AMER. (test 97 ML/MIN/1.73 code = 64538) CALC BUN/CREAT (test code = 20 RATIO [...] (test code = 2219) 23 U/L HEMOGLOBIN [id number] 00:00:00 Test Item Value Reference Range Interpretation Comments HEMOGLOBIN A1c (test code = 38351) 6.6 % HEMOGLOBIN [id number] 00:00:00 Test Item Value Reference Range Interpretation Comments HEMOGLOBIN A1c (test code = 48939) 6.6 % LIPID [id number] 00:00:00 Test Item Value Reference Range Interpretation Comments CHOLESTEROL (test code = 2210) 261 MG/DL TRIGLYCERIDES (test code = 2232) 159 MG/DL HDL CHOLESTEROL (test code = 2220) 82 MG/DL CALC LDL CHOL (test code = 2237) 150 MG/DL RISK RATIO LDL/HDL (test code = 1.83 RATIO 2238) COMPREHENSIVE METABOLIC [id number] 00:00:00 Test Item Value Reference Range Interpretation Comments GLUCOSE (test code = 2217) 144 MG/DL BUN (test code = 2208) 15 MG/DL CREATININE (test code = 2214) 0.85 MG/DL eGFR AMER. (test code 87 ML/MIN/1.73 = 89028) eGFR NON- AMER. (test 75 ML/MIN/1.73 code = 35847) CALC BUN/CREAT (test code = 18 RATIO [...] THYROX. BIND. CAPAC. (test code 1.1 = 28645) T4 (THYROXINE) (test code = 4.3 UG/DL 2819) CORRECTED T4 (FTI) (test code = 3.9 UG/DL 2820) TSH, THIRD GENERATION (test 18.900 UIU/ML code = 2821) HEMOGLOBIN [id number] 00:00:00 Test Item Value Reference Range Interpretation Comments HEMOGLOBIN A1c (test code = 58954) 6.7 % HEMOGLOBIN [id number] 00:00:00 Test Item Value Reference Range Interpretation Comments HEMOGLOBIN A1c (test code = 52113) 6.7 % LIPID [id number] 00:00:00 Test Item Value Reference Range Interpretation Comments CHOLESTEROL (test code = 2210) 267 MG/DL TRIGLYCERIDES (test code = 2232) 137 MG/DL HDL CHOLESTEROL (test code = 2220) 48 MG/DL CALC LDL CHOL (test code = 2237) 192 MG/DL RISK RATIO LDL/HDL (test code = 4.00 RATIO 2238) COMPREHENSIVE METABOLIC [id number] 00:00:00 Test Item Value Reference Range Interpretation Comments GLUCOSE (test code = 2217) 155 MG/DL BUN (test code = 2208) 14 MG/DL CREATININE (test code = 2214) 0.52 MG/DL eGFR AMER. (test code 122 ML/MIN/1.73 = 00903) eGFR NON- AMER. (test 105 ML/MIN/1.73 code = 06335) CALC BUN/CREAT (test code = 27 RATIO [...] THYROX. BIND. CAPAC. (test code 1.0 = 51083) T4 (THYROXINE) (test code = 4.7 UG/DL 2819) CORRECTED T4 (FTI) (test code = 4.7 UG/DL 2820) TSH, THIRD GENERATION (test code 0.201 UIU/ML = 2821) SARS-CoV-2 (COVID-19) by RT-PCR (HIGH RISK)2019-09-18 00:00:00 Test Item Value Reference Range Interpretation Comments SARS-CoV-2 INTERPRETATION (test NEGATIVE code = 14985) SOURCE (test code = 08899) NOT SPECIFIED [id number] 00:00:00 Test Item Value Reference Range Interpretation Comments TSH, THIRD GENERATION (test code 2.490 UIU/ML = 2821) [id number] 00:00:00 Test Item Value Reference Range Interpretation Comments TSH, THIRD GENERATION (test code 2.490 UIU/ML = 2821) HEMOGLOBIN [id number] 00:00:00 Test Item Value Reference Range Interpretation Comments HEMOGLOBIN A1c (test code = 96393) 6.4 % HEMOGLOBIN [id number] 00:00:00 Test Item Value Reference Range Interpretation Comments HEMOGLOBIN A1c (test code = 88652) 6.4 % COMPREHENSIVE METABOLIC [id number] 00:00:00 Test Item Value Reference Range Interpretation Comments GLUCOSE (test code = 2217) 206 MG/DL BUN (test code = 2208) 23 MG/DL CREATININE (test code = 2214) 0.67 MG/DL eGFR AMER. (test code 112 ML/MIN/1.73 = 61019) eGFR NON- AMER. (test 97 ML/MIN/1.73 code = 93331) CALC BUN/CREAT (test code = 34 RATIO [...] = 2219) 25 U/L VAGINAL PATHOGENS DNA [id number] 00:00:00 Test Item Value Reference Range Interpretation Comments MARK SPECIES (test code = ) NEGATIVE G. VAGINALIS (test code = ) NEGATIVE T. VAGINALIS (test code = ) NEGATIVE HEMOGLOBIN A1c [ADDED]2018-12-01 00:00:00 Test Item Value Reference Range Interpretation Comments HEMOGLOBIN A1c (test code = 63104) 6.7 % HEMOGLOBIN A1c [ADDED]2018-12-01 00:00:00 Test Item Value Reference Range Interpretation Comments HEMOGLOBIN A1c (test code = 85186) 6.7 % COMPREHENSIVE METABOLIC PANEL [ADDED]2018-12-01 00:00:00 Test Item Value Reference Range Interpretation Comments GLUCOSE (test code = 2217) 136 MG/DL BUN (test code = 2208) 15 MG/DL CREATININE (test code = 2214) 0.64 MG/DL eGFR AMER. (test code 115 ML/MIN/1.73 = 65909) eGFR NON- AMER. (test 99 ML/MIN/1.73 code = 55349) CALC BUN/CREAT (test code = 23 RATIO [...] code 1.280 UIU/ML = 2821) CBC W/AUTO [id number] 00:00:00 Test Item Value Reference Range Interpretation [...] code = 1015) 346 K/UL CBC W/AUTO [id number] 00:00:00 Test Item Value Reference Range Interpretation [...] (test code = 1015) 346 K/UL HEMOGLOBIN [id number] 00:00:00 Test Item Value Reference Range Interpretation Comments HEMOGLOBIN A1c (test code = 22820) 5.9 % HEMOGLOBIN [id number] 00:00:00 Test Item Value Reference Range Interpretation Comments HEMOGLOBIN A1c (test code = 33372) 5.9 % LIPID [id number] 00:00:00 Test Item Value Reference Range Interpretation Comments CHOLESTEROL (test code = 2210) 318 MG/DL TRIGLYCERIDES (test code = 2232) 263 MG/DL HDL CHOLESTEROL (test code = 2220) 51 MG/DL CALC LDL CHOL (test code = 2237) 214 MG/DL RISK RATIO LDL/HDL (test code = 4.20 RATIO 2238) COMPREHENSIVE METABOLIC [id number] 00:00:00 Test Item Value Reference Range Interpretation Comments GLUCOSE (test code = 2217) 113 MG/DL BUN (test code = 2208) 18 MG/DL CREATININE (test code = 2214) 0.70 MG/DL eGFR AMER. (test code 111 ML/MIN/1.73 = 90001) eGFR NON- AMER. (test 96 ML/MIN/1.73 code = 99432) CALC BUN/CREAT (test code = 26 RATIO [...] ALT (test code = 2219) 31 U/L [id number] 00:00:00 Test Item Value Reference Range Interpretation Comments TSH, THIRD GENERATION (test code 2.520 UIU/ML = 2821) [id number] 00:00:00 Test Item Value Reference Range Interpretation Comments TSH, THIRD GENERATION (test code 2.520 UIU/ML = 2821) CULTURE, [id number] 00:00:00 Test Item Value Reference Range Interpretation Comments CULTURE, URINE (test SPECIMEN NUMBER: code = 93844) [id number] CULTURE, [id number] 00:00:00 Test Item Value Reference Range Interpretation Comments CULTURE, URINE (test SPECIMEN NUMBER: code = 26474) [id number] BASIC METABOLIC [id number] 00:00:00 Test Item Value Reference Range Interpretation Comments GLUCOSE (test code = 2217) 135 MG/DL BUN (test code = 2208) 25 MG/DL CREATININE (test code = 2214) 0.76 MG/DL eGFR AMER. (test code 101 ML/MIN/1.73 = 72863) eGFR NON- AMER. (test 87 ML/MIN/1.73 code = 46605) SODIUM (test code = 2231) 139 MEQ/L POTASSIUM (test code = 2228) 4.7 MEQ/L CHLORIDE (test code = 2215) 99 MEQ/L CARBON DIOXIDE (test code = 26 MEQ/L 2206) CALCIUM (test code = 2209) 9.4 MG/DL LIPID [id number] 00:00:00 Test Item Value Reference Range Interpretation Comments CHOLESTEROL (test code = 2210) 262 MG/DL TRIGLYCERIDES (test code = 2232) 300 MG/DL HDL CHOLESTEROL (test code = 2220) 36 MG/DL CALC LDL CHOL (test code = 2237) 166 MG/DL RISK RATIO LDL/HDL (test code = 4.61 RATIO 2238) HEMOGLOBIN [id number] 00:00:00 Test Item Value Reference Range Interpretation Comments HEMOGLOBIN A1c (test code = 05861) 6.2 % HEMOGLOBIN [id number] 00:00:00 Test Item Value Reference Range Interpretation Comments HEMOGLOBIN A1c (test code = 17182) 6.2 % [id number] 00:00:00 Test Item Value Reference Range Interpretation Comments TSH, THIRD GENERATION (test code 0.988 UIU/ML = 2821) [id number] 00:00:00 Test Item Value Reference Range Interpretation Comments TSH, THIRD GENERATION (test code 0.988 UIU/ML = 2821) COMPREHENSIVE METABOLIC [id number] 00:00:00 Test Item Value Reference Range Interpretation Comments GLUCOSE (test code = 2217) 109 MG/DL BUN (test code = 2208) 25 MG/DL CREATININE (test code = 2214) 0.78 MG/DL eGFR AMER. (test code 98 ML/MIN/1.73 = 54818) eGFR NON- AMER. (test 84 ML/MIN/1.73 code = 75198) CALC BUN/CREAT (test code = 32 RATIO [...] (test code = 2219) 25 U/L LIPID [id number] 00:00:00 Test Item Value Reference Range Interpretation Comments CHOLESTEROL (test code = 2210) 295 MG/DL TRIGLYCERIDES (test code = 2232) 218 MG/DL HDL CHOLESTEROL (test code = 2220) 46 MG/DL CALC LDL CHOL (test code = 2237) 205 MG/DL RISK RATIO LDL/HDL (test code = 4.47 RATIO 2238) HEMOGLOBIN [id number] 00:00:00 Test Item Value Reference Range Interpretation Comments HEMOGLOBIN A1c (test code = 99829) 7.0 % HEMOGLOBIN [id number] 00:00:00 Test Item Value Reference Range Interpretation Comments HEMOGLOBIN A1c (test code = 89133) 7.0 % [id number] 00:00:00 Test Item Value Reference Range Interpretation Comments TSH, THIRD GENERATION (test code 0.565 UIU/ML = 2821) [id number] 00:00:00 Test Item Value Reference Range Interpretation Comments TSH, THIRD GENERATION (test code 0.565 UIU/ML = 2821) [id number] 00:00:00 Test Item Value Reference Range Interpretation Comments TSH, THIRD GENERATION (test code 0.379 UIU/ML = 2821) [id number] 00:00:00 Test Item Value Reference Range Interpretation Comments TSH, THIRD GENERATION (test code 0.379 UIU/ML = 2821) CULTURE, [id number] 00:00:00 Test Item Value Reference Range Interpretation Comments CULTURE, URINE (test SPECIMEN NUMBER: code = 29104) [id number] COMPREHENSIVE METABOLIC [id number] 00:00:00 Test Item Value Reference Range Interpretation Comments GLUCOSE (test code = 2217) 128 MG/DL BUN (test code = 2208) 26 MG/DL CREATININE (test code = 2214) 0.92 MG/DL eGFR AMER. (test code 81 ML/MIN/1.73 = 88796) eGFR NON- AMER. (test 70 ML/MIN/1.73 code = 27426) CALC BUN/CREAT (test code = 28 RATIO [...] code = 2219) 29 U/L ACUTE HEPATITIS [id number] 00:00:00 Test Item Value Reference Range Interpretation Comments HEPATITIS A IgM (test code = NON-REACTIVE 20730) HEPATITIS B CORE IgM (test code NON-REACTIVE = 4644) HEPATITIS B SURF AG (test code = NON-REACTIVE 6808) HEPATITIS C ANTIBODY (test code NON-REACTIVE = 1975) INTERPRETATION HEPATITIS A: (NOTE) (test code = 2552) INTERPRETATION HEPATITIS B: (NOTE) (test code = 13302) INTERPRETATION HEPATITIS C: (NOTE) (test code = 11508) [id number] 00:00:00 Test Item Value Reference Range Interpretation Comments AMYLASE (test code = 2205) 32 U/L [id number] 00:00:00 Test Item Value Reference Range Interpretation Comments LIPASE (test code = 205) 22 U/L [id number] 00:00:00 Test Item Value Reference Range Interpretation Comments LIPASE (test code = 2057) 22 U/L [id number] 00:00:00 Test Item Value Reference Range Interpretation Comments TSH, THIRD GENERATION (test code 4.890 UIU/ML = 2821) [id number] 00:00:00 Test Item Value Reference Range Interpretation Comments TSH, THIRD GENERATION (test code 4.890 UIU/ML = 2821) COMPREHENSIVE METABOLIC [id number] 00:00:00 Test Item Value Reference Range Interpretation Comments GLUCOSE (test code = 2217) 121 MG/DL BUN (test code = 2208) 40 MG/DL CREATININE (test code = 2214) 1.48 MG/DL eGFR AMER. (test code 45 ML/MIN/1.73 = 65998) eGFR NON- AMER. (test 39 ML/MIN/1.73 code = 94869) CALC BUN/CREAT (test code = 27 RATIO [...] (test code = 2219) 20 U/L LIPID [id number] 00:00:00 Test Item Value Reference Range Interpretation Comments CHOLESTEROL (test code = 2210) 261 MG/DL TRIGLYCERIDES (test code = 2232) 165 MG/DL HDL CHOLESTEROL (test code = 2220) 58 MG/DL CALC LDL CHOL (test code = 2237) 170 MG/DL RISK RATIO LDL/HDL (test code = 2.93 RATIO 2238) CBC W/AUTO [id number] 00:00:00 Test Item Value Reference Range Interpretation [...] code = 1015) 378 K/UL CBC W/AUTO [id number] 00:00:00 Test Item Value Reference Range Interpretation [...] (test code = 1015) 378 K/UL HEMOGLOBIN [id number] 00:00:00 Test Item Value Reference Range Interpretation Comments HEMOGLOBIN A1c (test code = 31618) 6.4 % HEMOGLOBIN [id number] 00:00:00 Test Item Value Reference Range Interpretation Comments HEMOGLOBIN A1c (test code = 21455) 6.4 % [id number] 00:00:00 Test Item Value Reference Range Interpretation Comments TSH (test code = 2821) 5.290 UIU/ML [id number] 00:00:00 Test Item Value Reference Range Interpretation Comments TSH (test code = 2821) 5.290 UIU/ML THYROID II PROFILE (T3U, T4, T7, TSH)[id number] 00:00:00 Test Item Value Reference Range Interpretation Comments T3 UPTAKE (test code = 2817) 32.3 % T4 (THYROXINE) (test code = 5.2 UG/DL 281) CALCULATED T7 (FTI) (test code = 1.68 2820) TSH (test code = 2821) 1.030 UIU/ML COMPREHENSIVE METABOLIC [id number] 00:00:00 Test Item Value Reference Range Interpretation Comments GLUCOSE (test code = 2217) 106 MG/DL BUN (test code = 2208) 23 MG/DL CREATININE (test code = 2214) 0.66 MG/DL eGFR AMER. (test code 114 ML/MIN/1.73 = 83922) eGFR NON- AMER. (test 99 ML/MIN/1.73 code = 25355) CALC BUN/CREAT (test code = 35 RATIO [...] code = 2821) 0.335 UIU/ML COMPREHENSIVE METABOLIC [id number] 00:00:00 Test Item Value Reference Range Interpretation Comments GLUCOSE (test code = 2217) 103 MG/DL BUN (test code = 2208) 15 MG/DL CREATININE (test code = 2214) 0.77 MG/DL eGFR AMER. (test code 101 ML/MIN/1.73 = 77649) eGFR NON- AMER. (test 87 ML/MIN/1.73 code = 10630) CALC BUN/CREAT (test code = 19 RATIO [...] (test code = 2821) 0.424 UIU/ML CULTURE, [id number] 00:00:00 Test Item Value Reference Range Interpretation Comments CULTURE, URINE (test SPECIMEN NUMBER: code = 35340) [id number] CULTURE, [id number] 00:00:00 Test Item Value Reference Range Interpretation Comments CULTURE, URINE (test SPECIMEN NUMBER: code = 77039) [id number]
[2021-10-30] MEDS ORDERED: DICYCLOMINE HCL 20 MG/2 ML AMP IM ONE (11:00)
[2021-10-30] MEDS ORDERED: LIDOCAINE VISCOUS 2% SOLN 15 ML UDC ONE (11:00)
[2021-10-30] MEDS ORDERED: MAGNES/ALUMIN/SIMET 30ML UCUP ONE (11:00)
[2021-10-30] MEDS ORDERED: DICYCLOMINE HCL 10 MG CAP ONE (11:02)
[2021-10-30] MEDS ORDERED: FAMOTIDINE 20 MG/2 ML VIAL IV ONE (11:23)
[2021-10-30] MEDS ORDERED: ONDANSETRON 4 MG/2 ML VIAL ONE (11:23)
--- NOTE | 2021-10-30 11:43 | ER ---
Nurse's Notes [facility] Name: Jaimie Amanda Age: 60 yrs Sex: Female : 1960 Arrival Date: 10/30/2021 Time: 09:31 Bed 18 Private MD: Diagnosis: Presentation: 10/30 09:54 Chief complaint: Patient states: she started having right lower abdominal pain ap3 yesterday. patient denies NVD. Coronavirus screen: At this time, the client does not indicate any symptoms associated with coronavirus-19. Ebola Screen: No symptoms or risks identified at this time. Initial Sepsis Screen:. Initial Sepsis Screen: Does the patient meet any 2 criteria? No. Patient's initial sepsis screen is negative. Does the patient have a suspected source of infection? No. Patient's initial sepsis screen is negative. Risk Assessment: Do you want to hurt yourself or someone else? Patient reports no desire to harm self or others. Onset of symptoms was October 29, 2021. 09:54 Method Of Arrival: Ambulatory ap3 09:54 Acuity: ZHEN 3 ap3 Triage Assessment: 09:55 General: Appears in no apparent distress. Behavior is calm, cooperative. Pain: ap3 Complains of pain in right lower quadrant. Neuro: Level of Consciousness is awake, alert, obeys commands, Oriented to person, place, time, situation. Cardiovascular: Patient's skin is warm and dry. Respiratory: Airway is patent Respiratory effort is even, unlabored. GI: No deficits noted. Historical: - Allergies: 09:56 No Known Allergies; ap3 - PMHx: 09:55 Anxiety; depressive disorder; diabetes mellitus; Hypertensive disorder; Hypothyroidism; ap3 - PSHx: 09:55 Thyroidectomy; ap3 - Immunization history:: Client reports receiving the 2nd dose of the Covid vaccine. - Social history:: Smoking status: Patient reports the use of cigarette tobacco products, smokes one-half pack cigarettes per day. Screenin:56 Abuse screen: Denies threats or abuse. Nutritional screening: No deficits noted. ap3 Tuberculosis screening: No symptoms or risk factors identified. 11:53 Fall Risk None identified. 5 Assessment: 10:44 Reassessment: Patient stuck x3 at this time. Will consult with charge, RN and ED jh5 Provider for next options. Pt was here 10/24 and 10/26 and stuck x6 on 10/26, bruises are present on arms from previous visit sticks. Pt "frequent flyer" to ED here, well known hard stick. 11:53 GI: Bowel sounds present X 4 quads. Abd is soft and non tender. jh5 12:37 Reassessment: Pt is refusing treatment at this time. Has her arms in the air stating "I jh5 just wanna refuse I have calcium pills at home I havent been taking, I will take them when I get home"; Pt educated her calcium level and that our provider wants to give her calcium IV prior to her leaving. Pt states "I just wanna refuse" again and walks to the lobby. 12:41 Reassessment: Pt states; "I cant have a CT, Dr. Ramirez told me I can't have anymore [facility] CT scans!". Vital Signs: 09:54 BP 149 / 83; Pulse 98; Resp 18; Temp 98; Pulse Ox 94% ; Weight 72.57 kg; Height 5 ft. 7 ap3 in. (170.18 cm); Pain 10/10; 11:54 BP 138 / 80; Pulse 89; Resp 16; Pulse Ox 100% ; jh5 09:54 Body Mass Index 25.06 (72.57 kg, 170.18 cm) ap3 ED Course: 09:31 Patient arrived in ED. am2 09:37 Tera Raymond MD is Attending Physician. kdr 09:55 Triage completed. ap3 09:56 Arm band placed on right wrist. ap3 10:22 Sandi Hernandez, CATY is Primary Nurse. jh5 10:47 Patient has correct armband on for positive identification. Side rails up X 1. jh5 11:52 No provider procedures requiring assistance completed. IV discontinued, intact, jh5 bleeding controlled, No redness/swelling at site. Pressure dressing applied. Administered Medications: 10:54 Drug: GI Cocktail without - (Maalox Suspension 30 ml, Lidocaine Liquid 2 % 15 jh5 ml) Route: PO; 10:54 Drug: Bentyl (dicyclomine) 20 mg Route: PO; jh5 11:18 Drug: Pepcid (famotidine) 20 mg Route: IVP; Site: right forearm; jh5 11:19 Drug: Zofran (Ondansetron) 4 mg Route: IVP; Site: right forearm; 5 Medication: 10:47 VIS not applicable for this client. [facility] Outcome: 11:43 Discharge ordered by . kdr 12:42 AMA Left before signing form. [facility] 12:42 Condition: good 12:42 Instructed on follow up and referral plans. medication usage, safety practices, need to stay in ED and not leve AMA because she needs calcium replacement 12:44 Patient left the ED. [facility] Signatures: Tera Raymond MD MD kdr Elisa Gregory am2 Elisa Gutierrez, RN RN ap3 Sandi Hernandez RN RN 5 Corrections: (The following items were deleted from the chart) 10:47 10:44 Reassessment: Patient stuck x3 at this time. Will consult with charge, RN and ED 5 Provider for next options. Pt was here x days ago and stuck x6 at that time, bruises are present on arms. Pt "frequent flyer" to ED here, known hard stick. [facility]
--- NOTE | 2021-10-30 11:43 | EDPHYS ---
Physician Documentation [facility] Name: Jaimie Amanda Age: 60 yrs Sex: Female : 1960 Arrival Date: 10/30/2021 Time: 09:31 Bed 18 Private MD: ED Physician Tera Raymond HPI: 10/30 10:05 This 60 yrs old Female presents to ER via Ambulatory with complaints of Abdominal Pain kdr - RLQ. 10:05 The patient presents with abdominal pain in the right upper quadrant. Onset: The kdr symptoms/episode began/occurred yesterday. The symptoms do not radiate. Associated signs and symptoms: none. The symptoms are described as achy, constant, sharp. Modifying factors: The symptoms are alleviated by nothing, the symptoms are aggravated by nothing. Severity of pain: At its worst the pain was mild moderate just prior to arrival, in the emergency department the pain is unchanged. The patient has experienced similar episodes in the past, chronically, today's symptoms are similar, and the symptoms today are exactly the same, Patient seen here on recurrent basis for the same pain. I have seen this patient myself in the last week at least once. Patient on my visit was discharged home without any pain medication. She stated the pain got better while she was here. I reviewed her records and noted that she has had multiple CAT scans in this year. Over her lifetime she has had dozens of CTs of her abdomen. I have discussed with her the need to diminish the recurrent use of these for her own health and safety. She is agreed to that reasoning. Today's complaint is not different than prior visits. She is not different from the last visit for which I saw her.. The patient has been recently seen at the [facility] Emergency Department, this week, last week. Historical: - Allergies: 09:56 No Known Allergies; ap3 - PMHx: 09:55 Anxiety; depressive disorder; diabetes mellitus; Hypertensive disorder; Hypothyroidism; ap3 - PSHx: 09:55 Thyroidectomy; ap3 - Immunization history:: Client reports receiving the 2nd dose of the Covid vaccine. - Social history:: Smoking status: Patient reports the use of cigarette tobacco products, smokes one-half pack cigarettes per day. ROS: 10:05 Constitutional: Negative for fever, chills, and weight loss, Eyes: Negative for injury, kdr pain, redness, and discharge, ENT: Negative for injury, pain, and discharge, Neck: Negative for injury, pain, and swelling, Cardiovascular: Negative for chest pain, palpitations, and edema, Respiratory: Negative for shortness of breath, cough, wheezing, and pleuritic chest pain, Back: Negative for injury and pain, : Negative for injury, bleeding, discharge, and swelling, MS/Extremity: Negative for injury and deformity, Skin: Negative for injury, rash, and discoloration, Neuro: Negative for headache, weakness, numbness, tingling, and seizure activity. Psych: Negative for depression, anxiety, suicide ideation, homicidal ideation, and hallucinations, Allergy/Immunology: Negative for hives, rash, and allergies, Endocrine: Negative for neck swelling, polydipsia, polyuria, polyphagia, and marked weight changes, Hematologic/Lymphatic: Negative for swollen nodes, abnormal bleeding, and unusual bruising. 10:05 Abdomen/GI: Positive for abdominal pain, Negative for nausea, vomiting, and diarrhea. Exam: 10:05 Constitutional: This is a well developed, well nourished patient who is awake, alert, kdr and in no acute distress. Head/Face: Normocephalic, atraumatic. Eyes: Pupils equal round and reactive to light, extra-ocular motions intact. Lids and lashes normal. Conjunctiva and sclera are non-icteric and not injected. Cornea within normal limits. Periorbital areas with no swelling, redness, or edema. Neck: Trachea midline, no thyromegaly or masses palpated, and no cervical lymphadenopathy. Supple, full range of motion without nuchal rigidity, or vertebral point tenderness. No Meningismus. Chest/axilla: Normal chest wall appearance and motion. Nontender with no deformity. No lesions are appreciated. Cardiovascular: Regular rate and rhythm with a normal S1 and S2. No gallops, murmurs, or rubs. Normal PMI, no JVD. No pulse deficits. Respiratory: Lungs have equal breath sounds bilaterally, clear to auscultation and percussion. No rales, rhonchi or wheezes noted. No increased work of breathing, no retractions or nasal flaring. Back: No spinal tenderness. No costovertebral tenderness. Full range of motion. Skin: Warm, dry with normal turgor. Normal color with no rashes, no lesions, and no evidence of cellulitis. MS/ Extremity: Pulses equal, no cyanosis. Neurovascular intact. Full, normal range of motion. Neuro: Awake and alert, GCS 15, oriented to person, place, time, and situation. Cranial nerves II-XII grossly intact. Motor strength 5/5 in all extremities. Sensory grossly intact. Cerebellar exam normal. Normal gait. Psych: Awake, alert, with orientation to person, place and time. Behavior, mood, and affect are within normal limits. 10:05 Abdomen/GI: Inspection: abdomen appears normal, obese Bowel sounds: active, all quadrants, Palpation: soft, mild abdominal tenderness, in the right upper quadrant and right lower quadrant. 10:05 Abdomen/GI: Indicators: McBurney's point is not tender, Marrero's sign is negative, kdr There is no rebound tenderness in the right lower quadrant. Vital Signs: 09:54 BP 149 / 83; Pulse 98; Resp 18; Temp 98; Pulse Ox 94% ; Weight 72.57 kg; Height 5 ft. 7 ap3 in. (170.18 cm); Pain 10/10; 11:54 BP 138 / 80; Pulse 89; Resp 16; Pulse Ox 100% ; jh5 09:54 Body Mass Index 25.06 (72.57 kg, 170.18 cm) ap3 MDM: 11:43 Patient medically screened. kdr 12:14 Data reviewed: vital signs, nurses notes, lab test result(s), radiologic studies. kdr Counseling: I had a detailed discussion with the patient and/or guardian regarding: the historical points, exam findings, and any diagnostic results supporting the discharge/admit diagnosis, lab results, the need for outpatient follow up. 10/30 09:59 Order name: CBC with Diff kdr 10/30 09:59 Order name: CMP kdr 10/30 09:59 Order name: Lipase kdr 10/30 11:52 Order name: CBC Smear Scan EDMS 10/30 09:59 Order name: IV Saline Lock; Complete Time: 11:10 kdr 10/30 09:59 Order name: Labs collected and sent; Complete Time: 11:10 kdr 10/30 11:23 Order name: Labs - recollect needed: recollect green top; Complete Time: 11:31 bd Administered Medications: 10:54 Drug: GI Cocktail without - (Maalox Suspension 30 ml, Lidocaine Liquid 2 % 15 jh5 ml) Route: PO; 10:54 Drug: Bentyl (dicyclomine) 20 mg Route: PO; 5 11:18 Drug: Pepcid (famotidine) 20 mg Route: IVP; Site: right forearm; 5 11:19 Drug: Zofran (Ondansetron) 4 mg Route: IVP; Site: right forearm; 5 Disposition Summary: 10/30/21 12:44 Left Against Medical Advice Location: Home(10/30/21 12:44) [facility] Condition: Stable(10/30/21 12:44) [facility] Discharge Instructions: - Discharge Summary Sheet kdr - Abdominal Pain, Adult, [id number] kdr - Hypocalcemia, Adult kdr Signatures: Dispatcher [employer] EDMS Tiffani Madera Kevin, MD MD kdr Elisa Gutierrez RN RN ap3 Sandi Hernandez RN RN 5 Corrections: (The following items were deleted from the chart) 12:42 12:25 Abdomen Pelvis W [id number] ordered. EDMS EDMS 12:42 11:43 Home kdr kdr 12:42 11:43 an ongoing problem kdr kdr 12:42 11:43 have improved kdr kdr 12:42 11:43 Stable kdr kdr 12:42 11:43 Upper abdominal pain, unspecified kdr kdr
[2021-10-30 11:48] LABS: Absolute Lymphocytes (CBC) 2.3 K/uL (0.7-4.9); Hematocrit 40.8 % (36.0-45.0); MCV 91.9 fL (80-100); MPV 7.3 fL (7.6-11.3); RBC Red Blood Cell Count 4.44 M/uL (3.86-4.86)
[2021-10-30 12:11] LABS: Albumin 2.7 g/dL (3.4-5.0); Bilirubin Total 0.2 mg/dL (0.2-1.0); Protein, Total 5.9 g/dL (6.4-8.2)
[2021-10-30 12:12] LABS: Potassium 3.6 mmol/L (3.5-5.1)
[2021-10-30 12:43] LABS: Blood Morphology Comment NOT SEEN (NOT SEEN); Platelet Estimate ADEQ; White Blood Cell Scan OK (OK)
[2021-10-30 13:09] VITALS: TEMP 98
[2021-10-30 13:18] VITALS: BP 138/80; O2SAT 100
== END 2021-10-30 12:44 | disposition left against medical advice (07) ==
LOC: ER 09:30
DX: R10.31 Right lower quadrant pain (principal); I10 Essential (primary) hypertension; E11.9 Type 2 diabetes mellitus without complications; F17.210 Nicotine dependence, cigarettes, uncomplicated
CPT/HCPCS: 85025; 36415; 83690; 80053; J2405; J0500

== ENCOUNTER 2021-11-07 06:04 | Emergency (ER) | payer OTHER ==
--- OUTSIDE RECORDS SUMMARY | 2021-11-07 06:09 | XMS REPORT | Continuity of Care Document ---
:1960 Author Organization [facility] t Address [address] [place] [address] Care Team Providers Name Role Phone Sharpless Primary Care Physician MATT SIMPSON Attending Clinician Unavailable MATT SIMPSON Attending Clinician Unavailable Doctor Unassigned, Tomas De Castro Attending Clinician Unavailable WALLY KRISHNAMURTHY Attending Clinician Unavailable Natacha Brewster Attending Clinician Payers Payer Name Policy Type Policy Number Effective Date Expiration Date Sarina castelan [facility] [id number] 2017 00:00:00 PLUS Problems This patient has [...] s TRANSDER 5- ity of MAL 00:00: [place] [facility] ACETAMIN DRUG Active Other-Cmnt Univ ers OPHEN INGREDI - ity of 00:00: [place] [address] [facility] Hmg-Coa Propensi Inactiv Reductas ty to e 2-28 e adverse 00:00: Inhibito reaction 00 rs to drug Nitrogly Propensi Active 2017-03 cerin ty to 1-08 adverse 00:00: reaction 00 to drug Social History Social Habit Start Date Stop Date Quantity Comments Source Alcohol intake 2016-05-01 2016-05-01 Current [facility] 00:00:00 00:00:00 non-drinker of Medical nter alcohol (finding) Sex Assigned At [birth year] [facility] 00:00:00 00:00:00 [facility] Smoking Status Start Date Stop Date Source [...] 160 mg 4-21 tablet 00:00: 00 clonidine 2022-0 No 1mg HCl 0.3 mg 4-20 tablet 00:00: 00 levothyroxi 2-0 No 1mcg ne 137 mcg 4-06 tablet 00:00: 00 Dose 2022-0 No Unknown 4-06 00:00: 00 Dose 2022-0 No Unknown 4-06 00:00: 00 Dose 2-0 No Unknown 4-06 00:00: 00 Dose 2022-0 [...] 2022-0 No Unknown 4-06 00:00: 00 losartan 2-0 No 1mg 100 1-28 mg-hydrochl 00:00: orothiazide 00 25 mg tablet levothyroxi 2-0 No 1mcg ne 137 mcg 1-28 tablet 00:00: 00 Dose 1-1 No Unknown 2-08 00:00: 00 losartan 1-1 [...] mcg/actuati 00 on nasal spray,suspe nsion Tessalon 2020-0 No 1mg Perles 100 8-02 mg capsule 00:00: 00 ezetimibe 1-0 No 1mg 10 mg 7-27 tablet 00:00: 00 losartan 1-0 No 1mg 100 7-27 mg-hydrochl 00:00: orothiazide 00 25 mg tablet clonidine 1-0 No 1mg HCl 0.3 mg 7-27 tablet 00:00: 00 liothyronin 2021-0 No 1mcg e 5 mcg 7-27 tablet [...] 00:00: orothiazide 00 25 mg tablet levothyroxi 1-0 No 1mcg ne 125 mcg 3-16 tablet 00:00: 00 liothyronin 1-0 No 1mcg e 5 mcg 3-16 tablet 00:00: 00 sulfamethox 1-0 No 1mg azole 800 1-14 mg-trimetho 00:00: prim 160 mg 00 tablet ondansetron 1-0 No 1mg 8 mg 1-14 disintegrat 00:00: ing tablet 00 amoxicillin 1-0 No 1mg 875 1-05 mg-potassiu 00:00: m 00 clavulanate 125 mg tablet liothyronin 1-0 No 1mcg e 5 mcg 1-05 tablet 00:00: 00 levothyroxi 2021-0 No 1mcg ne 125 mcg 1-05 tablet 00:00: 00 indomethaci 2021-0 No 1mg n 50 mg 1-05 capsule [...] Linzess 145 2020-0 No 1mcg mcg capsule 326 00:00: 00 ondansetron 2020-0 No mg HCl 4 mg 3-25 tablet 00:00: 00 risperidone 2020-0 No mg 1 mg tablet 320 00:00: 00 losartan 2020-0 No 1mg 100 [...] baclofen 10 2017-0 No 1mg mg tablet 7- 00:00: 00 hydroxyzine 2017-0 No 1mg pamoate [...] 30 mg 5-30 tablet 00:00: 00 oxcarbazepi 2017-0 No 1mg ne 600 mg 5-30 tablet 00:00: 00 baclofen 10 20170 No 1mg mg tablet 5-30 00:00: 00 levothyroxi 2017-0 No 1mcg ne 150 mcg 5-30 tablet 00:00: 00 hydroxyzine 2017-0 No 1mg pamoate 50 5-30 mg capsule 00:00: 00 OXcarbazepi 2017-0 Yes 600mg Q.[id number] Take [address] [facility] ne 2-23 [id number] [facility] (TR[facility]) 10:23: 3D mouth 3 Med ical 600 MG 59 (three) Center tablet times daily. PARoxetine 2016- Yes 40mg QD Take [address] (PAXIL) 40 2-23 by [facility] tablet 10:23: nightly. [facility] [address] [place] OXcarbazepi 2017-0 Yes 600mg Q.[id number] Take [address] [address] ne 2-23 [id number] [facility] (TRILEPTAL) 10:23: 3D mouth 3 Med ical 600 MG 59 (three) Center tablet times daily. PARoxetine 2016-0 Yes 40mg QD Take [address] (PAXIL) 40 2-23 by [facility] tablet 10:23: nightly. [facility] [address] [place] LORazepam 2016- Yes 1mg Take [address] [facility] [facility] (ATIVAN) 1 2-23 tablet (1 [facility] tablet 00:00: mg total) Med ical 00 by mouth 3 Center (three) times daily as needed for Anxiety for up to 5 doses. Max Daily Amount: 3 mg LORazepam 2016- Yes 1mg Take [address] [facility] (ATIVAN) [...] LEVOTHROID) 18 daily. Center 100 MCG tablet levothyroxi 2015-0 Yes 100ug QD Take 100 [facility] [...] Goal Plan of Care Note [code = 65451-4] Goal Plan of Care Note [code = 88294-0] Goal Plan of Care Note [code = 45956-1] Goal Plan of Care Note [code = 61719-0] Goal Plan of Care Note [code = 23027-9] Goal Plan of Care Note [code = 90652-2] Goal Plan of Care Note [code = 65488-2] Goal Plan of Care Note [code = 09590-9] Goal Plan of Care Note [code = 23128-9] Goal Plan of Care Note [code = 88067-5] Goal Plan of Care Note [code = 04262-7] Goal Plan of Care Note [code = 52692-4] Goal Plan of Care Note [code = 31869-5] Goal Plan of Care Note [code = 41736-5] Goal Plan of Care Note [code = 69757-6] Goal Plan of Care Note [code = 28456-8] Goal Plan of Care Note [code = 36677-6] Goal Plan of Care Note [code = 85171-4] Goal Plan of Care Note [code = 01588-9] Goal Plan of Care Note [code = 48032-1] Goal Plan of Care Note [code = 16486-1] Goal Plan of Care Note [code = 02889-9] Goal Plan of Care Note [code = 68898-7] Goal Plan of Care Note [code = 19382-4] Goal Plan of Care Note [code = 00429-7] Goal Plan of Care Note [code = 08204-5] Goal Plan of Care Note [code = 88983-6] Goal Plan of Care Note [code = 36029-0] Goal Plan of Care Note [code = 73856-7] Goal Plan of Care Note [code = 56908-7] Goal Plan of Care Note [code = 86445-1] Goal Plan of Care Note [code = 73281-0] Goal Plan of Care Note [code = 89068-3] Goal Plan of Care Note [code = 81965-9] Goal Plan of Care Note [code = 54895-0] Goal Plan of Care Note [code = 87467-8] Goal Plan of Care Note [code = 53099-5] Goal Plan of Care Note [code = 52112-9] Goal Plan of Care Note [code = 94854-2] Goal Plan of Care Note [code = 87733-7] Goal Plan of Care Note [code = 51204-2] Goal Plan of Care Note [code = 41148-6] Goal Plan of Care Note [code = 95341-6] Goal Plan of Care Note [code = 14707-0] Goal Plan of Care Note [code = 73152-6] Goal Plan of Care Note [code = 45750-7] Goal Plan of Care Note [code = 25321-1] Goal Plan of Care Note [code = 53422-3] Goal Plan of Care Note [code = 53539-3] Goal Plan of Care Note [code = 34434-9] Goal Plan of Care Note [code = 08851-3] Encounters Start End Encounter Admission Attending Care Care Encounter Source Date/Time Date/Time Type Type Clinicians Facility Department ID 2021-06-01 Outpatient [facility] [id number] [place] 01:36:29 [id number] [facility] 2021-09-17 2021-09-17 Outpatient [id number] 00:00:00 00:00:00 Visit [id number]-[id number]-b -[id number]-[id number] [id number] 2020-08-03 2020-08-03 Outpatient MATT VÁSQUEZ [facility] [id number] Univers 10:00:00 10:00:00 MATT SIMPSON [id number] [facility] 2020-08-03 2020-08-03 Outpatient MATT VÁSQUEZ [facility] [id number] Univers 10:00:00 10:00:00 MATT SIMPSON [facility] 2020-07-25 2020-07-25 Orders Doctor ABE [id number] 00:00:00 00:00:00 Only Unassigned, BK 350.1.13.10 Tomas De Castro [facility] [id number] 2019-09-26 2019-09-26 [facility] [id number]-20 Univers 16:00:00 16:00:00 [facility] 2019-09-26 2019-09-26 Outpatient [facility] [id number] Univers 16:00:00 16:00:[address] [facility] 2018-10-21 2018-10-21 [facility] [id number] 00:00:00 00:00:00 Natacha Nguyen 350.1.13.10 Ade 4.2.7.2.686 [place] [id number] [address] Results Test Description Test Time Test Comments Results Result Comments Source TSH, THIRD GENERATION 2021-06-27 05:15:49 Test Item Value Reference Range Interpretation Comme nts TSH, THIRD GENERATION (test code = 2821) 2.080 UIU/ML 0.400-4.100 HEMOGLOBIN [id number] 03:46:00 Test Item Value Reference Range Interpretation Comments HEMOGLOBIN A1c (test 6.6 % 4.2-5.6 H AMERIC AN DIABETES code = 14764) ASSOCIATION IDELINES FOR HGB A1C: PREDIABETES/INC REASED [...] INDICATED, ALL TESTING PER FORMED ATCLINICAL PATH OLOGY LABORATORIES, [address] [place], [place] [address] LABORATORY DIRE CTOR: DIANA RUSS M.D. CLIA NUMBER [id number] [facility] [place]. [id number] LIPID [id number] 02:59:52 Test Item Value Reference Range Interpretation [...] MOREINFORMATION , SEE CLIENT ANNOUNCE MENT AT [email or web address] RISK RATIO LDL/HDL 4.02 RATIO <3.22 H (test code = 2238) [id number] 00:00:00 Test Item Value Reference Range Interpretation Comments TSH, THIRD GENERATION (test code 2.080 UIU/ML = 2821) [id number] 00:00:00 Test Item Value Reference Range Interpretation Comments TSH, THIRD GENERATION (test code 2.080 UIU/ML = 2821) LIPID [id number] 00:00:00 Test Item Value Reference Range Interpretation Comments CHOLESTEROL (test code = 2210) 292 MG/DL TRIGLYCERIDES (test code = 2232) 184 MG/DL HDL CHOLESTEROL (test code = 2220) 51 MG/DL CALC LDL CHOL (test code = 2237) 205 MG/DL RISK RATIO LDL/HDL (test code = 4.02 RATIO 2238) HEMOGLOBIN [id number] 00:00:00 Test Item Value Reference Range Interpretation Comments HEMOGLOBIN A1c (test code = 68227) 6.6 % HEMOGLOBIN [id number] 00:00:00 Test Item Value Reference Range Interpretation Comments HEMOGLOBIN A1c (test code = 36867) 6.6 % HEMOGLOBIN [id number] 00:00:00 Test Item Value Reference Range Interpretation Comments HEMOGLOBIN A1c (test code = 96940) 6.8 % HEMOGLOBIN [id number] 00:00:00 Test Item Value Reference Range Interpretation Comments HEMOGLOBIN A1c (test code = 30554) 6.8 % LIPID [id number] 00:00:00 Test Item Value Reference Range Interpretation Comments CHOLESTEROL (test code = 2210) 303 MG/DL TRIGLYCERIDES (test code = 2232) 191 MG/DL HDL CHOLESTEROL (test code = 2220) 61 MG/DL CALC LDL CHOL (test code = 2237) 205 MG/DL RISK RATIO LDL/HDL (test code = 3.36 RATIO 2238) [id number] 00:00:00 Test Item Value Reference Range Interpretation Comments TSH, THIRD GENERATION (test code 0.769 UIU/ML = 2821) [id number] 00:00:00 Test Item Value Reference Range Interpretation Comments TSH, THIRD GENERATION (test code 0.769 UIU/ML = 2821) COMPREHENSIVE METABOLIC [id number] 00:00:00 Test Item Value Reference Range Interpretation Comments GLUCOSE (test code = 2217) 131 MG/DL BUN (test code = 2208) 13 MG/DL CREATININE (test code = 2214) 0.65 MG/DL eGFR AMER. (test code 113 ML/MIN/1.73 = 63929) eGFR NON- AMER. (test 97 ML/MIN/1.73 code = 58743) CALC BUN/CREAT (test code = 20 RATIO [...] (test code = 2219) 23 U/L HEMOGLOBIN [id number] 00:00:00 Test Item Value Reference Range Interpretation Comments HEMOGLOBIN A1c (test code = 07493) 6.6 % HEMOGLOBIN [id number] 00:00:00 Test Item Value Reference Range Interpretation Comments HEMOGLOBIN A1c (test code = 39051) 6.6 % LIPID [id number] 00:00:00 Test Item Value Reference Range Interpretation Comments CHOLESTEROL (test code = 2210) 261 MG/DL TRIGLYCERIDES (test code = 2232) 159 MG/DL HDL CHOLESTEROL (test code = 2220) 82 MG/DL CALC LDL CHOL (test code = 2237) 150 MG/DL RISK RATIO LDL/HDL (test code = 1.83 RATIO 2238) COMPREHENSIVE METABOLIC [id number] 00:00:00 Test Item Value Reference Range Interpretation Comments GLUCOSE (test code = 2217) 144 MG/DL BUN (test code = 2208) 15 MG/DL CREATININE (test code = 2214) 0.85 MG/DL eGFR AMER. (test code 87 ML/MIN/1.73 = 66099) eGFR NON- AMER. (test 75 ML/MIN/1.73 code = 66218) CALC BUN/CREAT (test code = 18 RATIO [...] THYROX. BIND. CAPAC. (test code 1.1 = 29876) T4 (THYROXINE) (test code = 4.3 UG/DL 281) CORRECTED T4 (FTI) (test code = 3.9 UG/DL 2820) TSH, THIRD GENERATION (test 18.900 UIU/ML code = 2821) HEMOGLOBIN [id number] 00:00:00 Test Item Value Reference Range Interpretation Comments HEMOGLOBIN A1c (test code = 87878) 6.7 % HEMOGLOBIN [id number] 00:00:00 Test Item Value Reference Range Interpretation Comments HEMOGLOBIN A1c (test code = 27290) 6.7 % LIPID [id number] 00:00:00 Test Item Value Reference Range Interpretation Comments CHOLESTEROL (test code = 2210) 267 MG/DL TRIGLYCERIDES (test code = 2232) 137 MG/DL HDL CHOLESTEROL (test code = 2220) 48 MG/DL CALC LDL CHOL (test code = 2237) 192 MG/DL RISK RATIO LDL/HDL (test code = 4.00 RATIO 2238) COMPREHENSIVE METABOLIC [id number] 00:00:00 Test Item Value Reference Range Interpretation Comments GLUCOSE (test code = 2217) 155 MG/DL BUN (test code = 2208) 14 MG/DL CREATININE (test code = 2214) 0.52 MG/DL eGFR AMER. (test code 122 ML/MIN/1.73 = 54135) eGFR NON- AMER. (test 105 ML/MIN/1.73 code = 84847) CALC BUN/CREAT (test code = 27 RATIO [...] THYROX. BIND. CAPAC. (test code 1.0 = 47714) T4 (THYROXINE) (test code = 4.7 UG/DL 2819) CORRECTED T4 (FTI) (test code = 4.7 UG/DL 2820) TSH, THIRD GENERATION (test code 0.201 UIU/ML = 2821) SARS-CoV-2 (COVID-19) by RT-PCR (HIGH RISK)2019-09-18 00:00:00 Test Item Value Reference Range Interpretation Comments SARS-CoV-2 INTERPRETATION (test NEGATIVE code = 82374) SOURCE (test code = 12861) NOT SPECIFIED [id number] 00:00:00 Test Item Value Reference Range Interpretation Comments TSH, THIRD GENERATION (test code 2.490 UIU/ML = 2821) [id number] 00:00:00 Test Item Value Reference Range Interpretation Comments TSH, THIRD GENERATION (test code 2.490 UIU/ML = 2821) HEMOGLOBIN [id number] 00:00:00 Test Item Value Reference Range Interpretation Comments HEMOGLOBIN A1c (test code = 74546) 6.4 % HEMOGLOBIN [id number] 00:00:00 Test Item Value Reference Range Interpretation Comments HEMOGLOBIN A1c (test code = 26977) 6.4 % COMPREHENSIVE METABOLIC [id number] 00:00:00 Test Item Value Reference Range Interpretation Comments GLUCOSE (test code = 2217) 206 MG/DL BUN (test code = 2208) 23 MG/DL CREATININE (test code = 2214) 0.67 MG/DL eGFR AMER. (test code 112 ML/MIN/1.73 = 77901) eGFR NON- AMER. (test 97 ML/MIN/1.73 code = 06567) CALC BUN/CREAT (test code = 34 RATIO [...] CALC GLOBULIN (test code = 2.2 G/DL 2239) CALC A/G RATIO (test code = 2.1 RATIO 2233) BILIRUBIN, TOTAL (test code = <0.2 MG/DL 2206) ALKALINE PHOSPHATASE (test 105 U/L code = 2204) AST (test code = 2218) 17 U/L ALT (test code = 2219) 25 U/L VAGINAL PATHOGENS DNA [id number] 00:00:00 Test Item Value Reference Range Interpretation Comments MARK SPECIES (test code = ) NEGATIVE G. VAGINALIS (test code = ) NEGATIVE T. VAGINALIS (test code = ) NEGATIVE HEMOGLOBIN A1c [ADDED]2018-12-01 00:00:00 Test Item Value Reference Range Interpretation Comments HEMOGLOBIN A1c (test code = 80853) 6.7 % HEMOGLOBIN A1c [ADDED]2018-12-01 00:00:00 Test Item Value Reference Range Interpretation Comments HEMOGLOBIN A1c (test code = 93296) 6.7 % COMPREHENSIVE METABOLIC PANEL [ADDED]2018-12-01 00:00:00 Test Item Value Reference Range Interpretation Comments GLUCOSE (test code = 2217) 136 MG/DL BUN (test code = 2208) 15 MG/DL CREATININE (test code = 2214) 0.64 MG/DL eGFR AMER. (test code 115 ML/MIN/1.73 = 01093) eGFR NON- AMER. (test 99 ML/MIN/1.73 code = 68871) CALC BUN/CREAT (test code = 23 RATIO 2235) SODIUM (test code = 2231) 142 MEQ/L POTASSIUM (test code = 2228) 4.7 MEQ/L CHLORIDE (test code = 2215) 97 MEQ/L CARBON DIOXIDE (test code = 30 MEQ/L 2205) CALCIUM (test code = 2209) 10.1 MG/DL PROTEIN, TOTAL (test code = 7.7 G/DL 2229) ALBUMIN (test code = 2201) 5.0 G/DL [...] code 1.280 UIU/ML = 2821) CBC W/AUTO [id number] 00:00:00 Test Item Value Reference Range Interpretation [...] code = 1015) 346 K/UL CBC W/AUTO [id number] 00:00:00 Test Item Value Reference Range Interpretation [...] (test code = 1015) 346 K/UL HEMOGLOBIN [id number] 00:00:00 Test Item Value Reference Range Interpretation Comments HEMOGLOBIN A1c (test code = 84046) 5.9 % HEMOGLOBIN [id number] 00:00:00 Test Item Value Reference Range Interpretation Comments HEMOGLOBIN A1c (test code = 96174) 5.9 % LIPID [id number] 00:00:00 Test Item Value Reference Range Interpretation Comments CHOLESTEROL (test code = 2210) 318 MG/DL TRIGLYCERIDES (test code = 2232) 263 MG/DL HDL CHOLESTEROL (test code = 2220) 51 MG/DL CALC LDL CHOL (test code = 2237) 214 MG/DL RISK RATIO LDL/HDL (test code = 4.20 RATIO 2238) COMPREHENSIVE METABOLIC [id number] 00:00:00 Test Item Value Reference Range Interpretation Comments GLUCOSE (test code = 2217) 113 MG/DL BUN (test code = 2208) 18 MG/DL CREATININE (test code = 2214) 0.70 MG/DL eGFR AMER. (test code 111 ML/MIN/1.73 = 37444) eGFR NON- AMER. (test 96 ML/MIN/1.73 code = 32975) CALC BUN/CREAT (test code = 26 RATIO 2235) SODIUM (test code = 2231) 137 MEQ/L POTASSIUM (test code = 2228) 4.3 MEQ/L CHLORIDE (test code = 2215) 99 MEQ/L CARBON DIOXIDE (test code = 24 MEQ/L 2206) CALCIUM (test code = 2209) 9.6 MG/DL PROTEIN, TOTAL (test code = 7.2 G/DL 2228) ALBUMIN (test code = 220) 4.8 G/DL CALC GLOBULIN (test code = 2.4 G/DL 2240) CALC A/G RATIO (test code = 2.0 RATIO 2234) BILIRUBIN, TOTAL (test code = <0.2 MG/DL 2206) ALKALINE PHOSPHATASE (test 80 U/L code = 2204) AST (test code = 2218) 21 U/L ALT (test code = 2219) 31 U/L [id number] 00:00:00 Test Item Value Reference Range Interpretation Comments TSH, THIRD GENERATION (test code 2.520 UIU/ML = 2821) [id number] 00:00:00 Test Item Value Reference Range Interpretation Comments TSH, THIRD GENERATION (test code 2.520 UIU/ML = 2821) CULTURE, [id number] 00:00:00 Test Item Value Reference Range Interpretation Comments CULTURE, URINE (test SPECIMEN NUMBER: code = 51697) [id number] CULTURE, [id number] 00:00:00 Test Item Value Reference Range Interpretation Comments CULTURE, URINE (test SPECIMEN NUMBER: code = 84738) [id number] BASIC METABOLIC [id number] 00:00:00 Test Item Value Reference Range Interpretation Comments GLUCOSE (test code = 2217) 135 MG/DL BUN (test code = 2208) 25 MG/DL CREATININE (test code = 2214) 0.76 MG/DL eGFR AMER. (test code 101 ML/MIN/1.73 = 46115) eGFR NON- AMER. (test 87 ML/MIN/1.73 code = 87700) SODIUM (test code = 2231) 139 MEQ/L POTASSIUM (test code = 2228) 4.7 MEQ/L CHLORIDE (test code = 2215) 99 MEQ/L CARBON DIOXIDE (test code = 26 MEQ/L 2206) CALCIUM (test code = 2209) 9.4 MG/DL LIPID [id number] 00:00:00 Test Item Value Reference Range Interpretation Comments CHOLESTEROL (test code = 2210) 262 MG/DL TRIGLYCERIDES (test code = 2232) 300 MG/DL HDL CHOLESTEROL (test code = 2220) 36 MG/DL CALC LDL CHOL (test code = 2237) 166 MG/DL RISK RATIO LDL/HDL (test code = 4.61 RATIO 2238) HEMOGLOBIN [id number] 00:00:00 Test Item Value Reference Range Interpretation Comments HEMOGLOBIN A1c (test code = 51488) 6.2 % HEMOGLOBIN [id number] 00:00:00 Test Item Value Reference Range Interpretation Comments HEMOGLOBIN A1c (test code = 85310) 6.2 % [id number] 00:00:00 Test Item Value Reference Range Interpretation Comments TSH, THIRD GENERATION (test code 0.988 UIU/ML = 2821) [id number] 00:00:00 Test Item Value Reference Range Interpretation Comments TSH, THIRD GENERATION (test code 0.988 UIU/ML = 2821) COMPREHENSIVE METABOLIC [id number] 00:00:00 Test Item Value Reference Range Interpretation Comments GLUCOSE (test code = 2217) 109 MG/DL BUN (test code = 2208) 25 MG/DL CREATININE (test code = 2214) 0.78 MG/DL eGFR AMER. (test code 98 ML/MIN/1.73 = 67699) eGFR NON- AMER. (test 84 ML/MIN/1.73 code = 80931) CALC BUN/CREAT (test code = 32 RATIO [...] CALC GLOBULIN (test code = 2.7 G/DL 224) CALC A/G RATIO (test code = 1.8 RATIO 2234) BILIRUBIN, TOTAL (test code = <0.2 MG/DL 2206) ALKALINE PHOSPHATASE (test 109 U/L code = 2204) AST (test code = 2218) 18 U/L ALT (test code = 2219) 25 U/L LIPID [id number] 00:00:00 Test Item Value Reference Range Interpretation Comments CHOLESTEROL (test code = 2210) 295 MG/DL TRIGLYCERIDES (test code = 2232) 218 MG/DL HDL CHOLESTEROL (test code = 2220) 46 MG/DL CALC LDL CHOL (test code = 2237) 205 MG/DL RISK RATIO LDL/HDL (test code = 4.47 RATIO 2238) HEMOGLOBIN [id number] 00:00:00 Test Item Value Reference Range Interpretation Comments HEMOGLOBIN A1c (test code = 36842) 7.0 % HEMOGLOBIN [id number] 00:00:00 Test Item Value Reference Range Interpretation Comments HEMOGLOBIN A1c (test code = 79039) 7.0 % [id number] 00:00:00 Test Item Value Reference Range Interpretation Comments TSH, THIRD GENERATION (test code 0.565 UIU/ML = 2821) [id number] 00:00:00 Test Item Value Reference Range Interpretation Comments TSH, THIRD GENERATION (test code 0.565 UIU/ML = 2821) [id number] 00:00:00 Test Item Value Reference Range Interpretation Comments TSH, THIRD GENERATION (test code 0.379 UIU/ML = 2821) [id number] 00:00:00 Test Item Value Reference Range Interpretation Comments TSH, THIRD GENERATION (test code 0.379 UIU/ML = 2821) CULTURE, [id number] 00:00:00 Test Item Value Reference Range Interpretation Comments CULTURE, URINE (test SPECIMEN NUMBER: code = 41115) [id number] COMPREHENSIVE METABOLIC [id number] 00:00:00 Test Item Value Reference Range Interpretation Comments GLUCOSE (test code = 2217) 128 MG/DL BUN (test code = 2208) 26 MG/DL CREATININE (test code = 2214) 0.92 MG/DL eGFR AMER. (test code 81 ML/MIN/1.73 = 49991) eGFR NON- AMER. (test 70 ML/MIN/1.73 code = 76630) CALC BUN/CREAT (test code = 28 RATIO [...] code = 2219) 29 U/L ACUTE HEPATITIS [id number] 00:00:00 Test Item Value Reference Range Interpretation Comments HEPATITIS A IgM (test code = NON-REACTIVE 26293) HEPATITIS B CORE IgM (test code NON-REACTIVE = 2544) HEPATITIS B SURF AG (test code = NON-REACTIVE 9229) HEPATITIS C ANTIBODY (test code NON-REACTIVE = 4676) INTERPRETATION HEPATITIS A: (NOTE) (test code = 2552) INTERPRETATION HEPATITIS B: (NOTE) (test code = 60526) INTERPRETATION HEPATITIS C: (NOTE) (test code = 00876) [id number] 00:00:00 Test Item Value Reference Range Interpretation Comments AMYLASE (test code = 2205) 32 U/L [id number] 00:00:00 Test Item Value Reference Range Interpretation Comments LIPASE (test code = 2058) 22 U/L [id number] 00:00:00 Test Item Value Reference Range Interpretation Comments LIPASE (test code = 2058) 22 U/L [id number] 00:00:00 Test Item Value Reference Range Interpretation Comments TSH, THIRD GENERATION (test code 4.890 UIU/ML = 2821) [id number] 00:00:00 Test Item Value Reference Range Interpretation Comments TSH, THIRD GENERATION (test code 4.890 UIU/ML = 2821) COMPREHENSIVE METABOLIC [id number] 00:00:00 Test Item Value Reference Range Interpretation Comments GLUCOSE (test code = 2217) 121 MG/DL BUN (test code = 2208) 40 MG/DL CREATININE (test code = 2214) 1.48 MG/DL eGFR AMER. (test code 45 ML/MIN/1.73 = 81159) eGFR NON- AMER. (test 39 ML/MIN/1.73 code = 79293) CALC BUN/CREAT (test code = 27 RATIO [...] (test code = 2219) 20 U/L LIPID [id number] 00:00:00 Test Item Value Reference Range Interpretation Comments CHOLESTEROL (test code = 2210) 261 MG/DL TRIGLYCERIDES (test code = 2232) 165 MG/DL HDL CHOLESTEROL (test code = 2220) 58 MG/DL CALC LDL CHOL (test code = 2237) 170 MG/DL RISK RATIO LDL/HDL (test code = 2.93 RATIO 2238) CBC W/AUTO [id number] 00:00:00 Test Item Value Reference Range Interpretation [...] code = 1015) 378 K/UL CBC W/AUTO [id number] 00:00:00 Test Item Value Reference Range Interpretation [...] (test code = 1015) 378 K/UL HEMOGLOBIN [id number] 00:00:00 Test Item Value Reference Range Interpretation Comments HEMOGLOBIN A1c (test code = 38594) 6.4 % HEMOGLOBIN [id number] 00:00:00 Test Item Value Reference Range Interpretation Comments HEMOGLOBIN A1c (test code = 55111) 6.4 % [id number] 00:00:00 Test Item Value Reference Range Interpretation Comments TSH (test code = 2821) 5.290 UIU/ML [id number] 00:00:00 Test Item Value Reference Range Interpretation Comments TSH (test code = 2821) 5.290 UIU/ML THYROID II PROFILE (T3U, T4, T7, TSH)[id number] 00:00:00 Test Item Value Reference Range Interpretation Comments T3 UPTAKE (test code = 2817) 32.3 % T4 (THYROXINE) (test code = 5.2 UG/DL 2819) CALCULATED T7 (FTI) (test code = 1.68 2820) TSH (test code = 2821) 1.030 UIU/ML COMPREHENSIVE METABOLIC [id number] 00:00:00 Test Item Value Reference Range Interpretation Comments GLUCOSE (test code = 2217) 106 MG/DL BUN (test code = 2208) 23 MG/DL CREATININE (test code = 2214) 0.66 MG/DL eGFR AMER. (test code 114 ML/MIN/1.73 = 10249) eGFR NON- AMER. (test 99 ML/MIN/1.73 code = 59104) CALC BUN/CREAT (test code = 35 RATIO [...] A/G RATIO (test code = 2.0 RATIO 223) BILIRUBIN, TOTAL (test code = 0.2 MG/DL 2206) ALKALINE PHOSPHATASE (test 101 U/L code = 2204) AST (test code = 2218) 21 U/L ALT (test code = 2219) 31 U/L THYROID II PROFILE (T3U, T4, T7, TSH)2017-02-26 00:00:00 Test Item Value Reference Range Interpretation Comments T3 UPTAKE (test code = 281) 31.6 % T4 (THYROXINE) (test code = 5.4 UG/DL 2818) CALCULATED T7 (FTI) (test code = 1.71 0) TSH (test code = 2821) 0.335 UIU/ML COMPREHENSIVE METABOLIC [id number] 00:00:00 Test Item Value Reference Range Interpretation Comments GLUCOSE (test code = 2217) 103 MG/DL BUN (test code = 2208) 15 MG/DL CREATININE (test code = 2214) 0.77 MG/DL eGFR AMER. (test code 101 ML/MIN/1.73 = 05676) eGFR NON- AMER. (test 87 ML/MIN/1.73 code = 89307) CALC BUN/CREAT (test code = 19 RATIO [...] CALC GLOBULIN (test code = 2.1 G/DL 2240) CALC A/G RATIO (test code = 2.0 RATIO 2234) BILIRUBIN, TOTAL (test code = 0.1 MG/DL 2206) ALKALINE PHOSPHATASE (test 83 U/L code = 2204) AST (test code = 2218) 15 U/L ALT (test code = 2219) 24 U/L THYROID II PROFILE (T3U, T4, T7, TSH)2016-08-22 00:00:00 Test Item Value Reference Range Interpretation Comments T3 UPTAKE (test code = 2817) 35.1 % T4 (THYROXINE) (test code = 3.9 UG/DL 2819) CALCULATED T7 (FTI) (test code = 1.37 336) TSH (test code = 2821) 0.424 UIU/ML CULTURE, [id number] 00:00:00 Test Item Value Reference Range Interpretation Comments CULTURE, URINE (test SPECIMEN NUMBER: code = 40422) [id number] CULTURE, [id number] 00:00:00 Test Item Value Reference Range Interpretation Comments CULTURE, URINE (test SPECIMEN NUMBER: code = 70011) [id number]
[2021-11-07] MEDS ORDERED: ONDANSETRON 4 MG/2 ML VIAL ONE (06:31)
[2021-11-07] MEDS ORDERED: NA CHLORIDE 0.9% 1,000 ML ONE (06:31)
[2021-11-07 07:02] LABS: Hematocrit 28.3 % (36.0-45.0); Lymphocytes % 33.3 % (15.3-44.8); MCV 90.7 fL (80-100); MPV 6.1 fL (7.6-11.3); RBC Red Blood Cell Count 3.13 M/uL (3.86-4.86)
[2021-11-07 07:20] LABS: ALT/SGPT 18 U/L (12-78); AST/SGOT 7 U/L (15-37); Albumin 2.4 g/dL (3.4-5.0); Alkaline Phosphatase 68 U/L (45-117); BUN Blood Urea Nitrogen 5 mg/dL (7-18); Bicarbonate 20 mmol/L (21-32); Glomerular Filtration Rate 124 ml/min (=/>90); Glucose Level 105 mg/dL (74-106); Lipase 33 U/L (73-393); Sodium Level 134 mmol/L (136-145)
[2021-11-07 07:24] LABS: Bilirubin Total < 0.1 mg/dL (0.2-1.0); Potassium 2.5 mmol/L (3.5-5.1)
[2021-11-07] MEDS ORDERED: POTASSIUM CL SA 10 MEQ TAB PO ONE (07:54)
[2021-11-07] MEDS ORDERED: PROMETHAZINE INJ 25 MG/ML AMP ONE (07:54)
--- NOTE | 2021-11-07 08:18 | ER ---
Nurse's Notes [facility] Name: Jaimie Amanda Age: 60 yrs Sex: Female : 1960 Arrival Date: 11/07/2021 Time: 06:06 Bed 6 Private MD: Diagnosis: Hypokalemia;Abdominal pain, Generalized;Nausea with vomiting, unspecified;Essential (primary) hypertension Presentation: 11/07 06:18 Chief complaint: Patient states: States "I can't quit vomiting", c/o N/V, and abdominal ll3 pain 09/15. Coronavirus screen: Vaccine status: Patient reports receiving the 2nd dose of the covid vaccine. nausea, vomiting. Ebola Screen: No symptoms or risks identified at this time. Initial Sepsis Screen: Does the patient meet any 2 criteria? No. Patient's initial sepsis screen is negative. Does the patient have a suspected source of infection? No. Patient's initial sepsis screen is negative. Risk Assessment: Do you want to hurt yourself or someone else? Patient reports no desire to harm self or others. Onset of symptoms was November 06, 2021 at 11:30. 06:18 Method Of Arrival: Ambulatory ll3 06:18 Acuity: ZHEN 3 ll3 Triage Assessment: 06:20 General: Appears comfortable, Behavior is calm, cooperative. Pain: Complains of pain in ll3 right upper quadrant Pain does not radiate. Pain currently is 7 out of 10 on a pain scale. Neuro: Level of Consciousness is awake, alert, obeys commands, Oriented to person, place, time, situation. GI: Abdomen is round non-distended, Reports nausea, vomiting, Patient currently denies constipation, diarrhea. Derm: Skin is pink, warm \\T\\ dry. Historical: - Allergies: 06:20 No Known Allergies; ll3 - PMHx: 06:20 Anxiety; depressive disorder; diabetes mellitus; Hypertensive disorder; Hypothyroidism; ll3 - PSHx: 06:20 Thyroidectomy; ll3 - Immunization history:: Client reports receiving the 2nd dose of the Covid vaccine. - Social history:: Smoking status: Patient reports the use of cigarette tobacco products, smokes one pack cigarettes per day. - Family history:: not pertinent. - Hospitalizations: : No recent hospitalization is reported. Screenin:47 Abuse screen: Denies threats or abuse. Denies injuries from another. Nutritional lg3 screening: No deficits noted. Tuberculosis screening: No symptoms or risk factors identified. Fall Risk None identified. Assessment: 06:47 General: Appears in no apparent distress. comfortable, Behavior is calm, cooperative. lg3 Pain: Complains of pain in right upper quadrant Pain does not radiate. Pain currently is 7 out of 10 on a pain scale. at worst was 10 out of 10 on a pain scale. Quality of pain is described as crampy, pressure, squeezing. Neuro: No deficits noted. Level of Consciousness is awake, alert, obeys commands, Oriented to person, place, time, situation. Cardiovascular: No deficits noted. Denies chest pain, shortness of breath, Capillary refill < 3 seconds Clubbing of nail beds is absent JVD is absent Patient's skin is warm and dry. Respiratory: No deficits noted. Airway is patent Trachea midline Respiratory effort is even, unlabored, Respiratory pattern is regular, symmetrical, Breath sounds are clear bilaterally. GI: Abdomen is round non-distended, Bowel sounds present X 4 quads. Abd is soft X 4 quads Abdomen is tender to palpation in right upper quadrant Reports nausea, vomiting. : No deficits noted. No signs and/or symptoms were reported regarding the genitourinary system. EENT: No deficits noted. No signs and/or symptoms were reported regarding the EENT system. Derm: No deficits noted. No signs and/or symptoms reported regarding the dermatologic system. Skin is intact, is healthy with good turgor, Skin is dry, Skin temperature is warm. Musculoskeletal: No deficits noted. No signs and/or symptoms reported regarding the musculoskeletal system. Circulation, motion, and sensation intact. Range of motion: intact in all extremities. 07:30 Reassessment: pt c/o nausea, provider notified. vg1 07:30 Reassessment: Patient appears in no apparent distress at this time. Patient and/or vg1 family updated on plan of care and expected duration. Pain level reassessed. Patient is alert, oriented x 3, equal unlabored respirations, skin warm/dry/pink. 07:40 Reassessment: received VO from Dr Singh to administer Phenergan 25 mg IM x1. vg1 Vital Signs: 06:18 BP 205 / 95; Pulse 86; Resp 18; Temp 97.7(O); Pulse Ox 97% on R/A; Weight 70.31 kg (R); ll3 Height 5 ft. 7 in. (170.18 cm) (R); Pain 7/10; 06:24 BP 178 / 95; Pulse 74; Pulse Ox 96% on R/A; ll3 07:15 BP 186 / 102; Pulse 80; Resp 17; Pulse Ox 97% on R/A; vg1 06:18 Body Mass Index 24.28 (70.31 kg, 170.18 cm) ll3 ED Course: 06:06 Patient arrived in ED. ja2 06:10 Villa Byrd MD is Attending Physician. rn 06:20 Triage completed. ll3 06:20 Arm band placed on Patient placed in an exam room, on a stretcher, on pulse oximetry. ll3 06:30 Missed attempt(s): 20 gauge in left forearm. Bleeding controlled, band aid applied, aa9 catheter tip intact. 06:35 Inserted saline lock: 22 gauge in left hand, using aseptic technique. Blood collected. aa9 06:39 CBC with Diff Sent. lg3 06:39 CMP Sent. lg3 06:39 Lipase Sent. lg3 06:47 Client placed on continuous cardiac and pulse oximetry monitoring. NIBP monitoring lg3 applied. 06:50 Patient has correct armband on for positive identification. Side rails up X2. aa9 06:54 Beulah Francis, CATY is Primary Nurse. aa9 06:55 CBC with Diff Sent. lg3 06:55 CMP Sent. lg3 06:55 Lipase Sent. lg3 07:34 Attending Physician role handed off by Villa Byrd MD ms3 07:34 Wilfrid Singh DO is Attending Physician. ms3 08:17 Isra Zapata DO is Referral Physician. ms3 08:26 IV discontinued, intact, bleeding controlled, No redness/swelling at site. Pressure jd3 dressing applied. 08:29 No provider procedures requiring assistance completed. em6 Administered Medications: 06:48 Drug: NS 0.9% 1000 ml Route: IV; Rate: 1 bolus; Site: left hand; aa9 08:28 Follow up: Response: No adverse reaction; IV Status: Completed infusion; IV Intake: em6 1000ml 06:49 Drug: Zofran (Ondansetron) 4 mg Route: IVP; Site: left hand; aa9 06:49 Follow up: Response: No adverse reaction aa9 07:53 Drug: Phenergan (promethazine) 25 mg Route: IM; Site: left deltoid; vg1 08:27 Follow up: Response: No adverse reaction em6 07:55 Drug: Potassium Chloride Liquid 40 mEq Route: PO; vg1 08:27 Follow up: Response: No adverse reaction em6 Medication: 08:29 VIS not applicable for this client. em6 Intake: 08:28 IV: 1000ml; Total: 1000ml. em6 Outcome: 08:17 Discharge ordered by . ms3 08:29 Discharged to home ambulatory, with family. em6 08:29 Condition: stable 08:29 Discharge instructions given to patient, family, Instructed on discharge instructions, follow up and referral plans. Demonstrated understanding of instructions, follow-up care. 08:30 Patient left the ED. em6 Signatures: Villa Byrd MD MD rn Davies, Jonathon, RN RN jd3 Jocy Burkett, RN RN lg3 Geneva Ramirez RN RN vg1 Wilfrid Singh DO DO ms3 Sandi Carrasco Lyn[place], RN RN ll3 Beulah Francis, RN RN aa9 Marline Marley RN RN em6
--- NOTE | 2021-11-07 08:18 | EDPHYS ---
Physician Documentation [facility] Name: Jaimie Amanda Age: 60 yrs Sex: Female : 1960 Arrival Date: 11/07/2021 Time: 06:06 Bed 6 Private MD: ED Physician Wilfrid Snigh HPI: 11/07 06:19 This 60 yrs old Female presents to ER via Unassigned with complaints of Abdominal Pain, rn Vomiting. 06:19 The patient presents to the emergency department with nausea, vomiting, abdominal pain, rn of the epigastric area. Onset: The symptoms/episode began/occurred yesterday. Possible causes: unknown. The symptoms are aggravated by nothing. The symptoms are alleviated by nothing. Associated signs and symptoms: Pertinent positives: abdominal pain, nausea, vomiting, Pertinent negatives: fever, GI bleeding. Severity of symptoms: At their worst the symptoms were mild in the emergency department the symptoms are unchanged. The patient has experienced similar episodes in the past. The patient has not recently seen a physician. Historical: - Allergies: 06:20 No Known Allergies; ll3 - PMHx: 06:20 Anxiety; depressive disorder; diabetes mellitus; Hypertensive disorder; Hypothyroidism; ll3 - PSHx: 06:20 Thyroidectomy; ll3 - Immunization history:: Client reports receiving the 2nd dose of the Covid vaccine. - Social history:: Smoking status: Patient reports the use of cigarette tobacco products, smokes one pack cigarettes per day. - Family history:: not pertinent. - Hospitalizations: : No recent hospitalization is reported. ROS: 06:19 Constitutional: Negative for fever, chills, and weight loss, Eyes: Negative for injury, rn pain, redness, and discharge, Neck: Negative for injury, pain, and swelling, Cardiovascular: Negative for chest pain, palpitations, and edema, Respiratory: Negative for shortness of breath, cough, wheezing, and pleuritic chest pain, Abdomen/GI: + upper abd pain and nausea/vomiting Back: Negative for injury and pain, : Negative for injury, bleeding, discharge, and swelling, MS/Extremity: Negative for injury and deformity, Skin: Negative for injury, rash, and discoloration, Neuro: Negative for headache, numbness, tingling, and seizure. Exam: 06:19 Constitutional: This is a well developed, well nourished patient who is awake, alert, rn and in no acute distress. Ambulatory to room without difficulty or assistance Head/Face: Normocephalic, atraumatic. Cardiovascular: Regular rate and rhythm. No pulse deficits. Respiratory: No increased work of breathing, no retractions or nasal flaring. Abdomen/GI: Soft, non-tender Skin: Warm, dry MS/ Extremity: Pulses equal, no cyanosis. Neuro: Awake and alert, GCS 15, oriented to person, place, time, and situation. Cranial nerves II-XII grossly intact. Motor strength 5/5 in all extremities. Sensory grossly intact. Cerebellar exam normal. Normal gait. Vital Signs: 06:18 BP 205 / 95; Pulse 86; Resp 18; Temp 97.7(O); Pulse Ox 97% on R/A; Weight 70.31 kg (R); ll3 Height 5 ft. 7 in. (170.18 cm) (R); Pain 7/10; 06:24 BP 178 / 95; Pulse 74; Pulse Ox 96% on R/A; ll3 07:15 BP 186 / 102; Pulse 80; Resp 17; Pulse Ox 97% on R/A; vg1 06:18 Body Mass Index 24.28 (70.31 kg, 170.18 cm) ll3 MDM: 06:10 Patient medically screened. rn 15:32 Data reviewed: vital signs, nurses notes, lab test result(s), and as a result, I will ms3 discharge patient. Counseling: I had a detailed discussion with the patient and/or guardian regarding: the historical points, exam findings, and any diagnostic results supporting the discharge/admit diagnosis, lab results, the need for outpatient follow up, to return to the emergency department if symptoms worsen or persist or if there are any questions or concerns that arise at home. Special discussion: I discussed with the patient/guardian in detail that at this point there is no indication for admission to the hospital. It is understood, however, that if the symptoms persist or worsen the patient needs to return immediately for re-evaluation. ED course: On reevaluation patient stating she would like to be discharged. Patient was alert and oriented x4, in no apparent distress, nontoxic, ambulatory in emergency department. Patient to follow-up with her primary care physician as discussed. All questions were answered. Return precautions discussed include worsening symptoms, or any other concerns.. 11/07 06:19 Order name: CBC with Diff; Complete Time: 07:23 rn 11/07 06:19 Order name: CMP; Complete Time: 07:34 rn 11/07 06:19 Order name: Lipase; Complete Time: 07:34 rn 11/07 06:19 Order name: IV Saline Lock; Complete Time: 06:48 rn 11/07 06:19 Order name: Labs collected and sent; Complete Time: 06:48 rn Administered Medications: 06:48 Drug: NS 0.9% 1000 ml Route: IV; Rate: 1 bolus; Site: left hand; aa9 08:28 Follow up: Response: No adverse reaction; IV Status: Completed infusion; IV Intake: em6 1000ml 06:49 Drug: Zofran (Ondansetron) 4 mg Route: IVP; Site: left hand; aa9 06:49 Follow up: Response: No adverse reaction aa9 07:53 Drug: Phenergan (promethazine) 25 mg Route: IM; Site: left deltoid; vg1 08:27 Follow up: Response: No adverse reaction em6 07:55 Drug: Potassium Chloride Liquid 40 mEq Route: PO; vg1 08:27 Follow up: Response: No adverse reaction em6 Disposition Summary: 11/07/21 08:17 Discharge Ordered Location: Home ms3 Condition: Stable ms3 Diagnosis - Hypokalemia ms3 - Abdominal pain, Generalized ms3 - Nausea with vomiting, unspecified ms3 - Essential (primary) hypertension ms3 Followup: ms3 - With: Isra Zapata DO - When: 2 - 3 days - Reason: Recheck today's complaints, Re-evaluation by your physician Discharge Instructions: - Discharge Summary Sheet ms3 - Nausea and Vomiting, Adult ms3 - Hypokalemia ms3 Forms: - Medication Reconciliation Form ms3 - Thank You Letter ms3 - Antibiotic Education ms3 - Prescription Opioid Use ms3 Signatures: Dispatcher [employer] EDMS Villa Byrd MD MD rn Garcia, Victoria RN RN vg1 Wilfrid Singh DO DO ms3 Francesca Grant RN RN ll3 Beulah Francis RN RN aa9 Marline Marley RN em6
[2021-11-07 08:47] VITALS: TEMP 97.7
[2021-11-07 09:14] VITALS: BP 186/102; O2SAT 97
== END 2021-11-07 08:30 | disposition home or self-care (01) ==
LOC: ER 06:04
DX: E87.6 Hypokalemia (principal); R10.84 Generalized abdominal pain; I10 Essential (primary) hypertension; E11.9 Type 2 diabetes mellitus without complications; F17.210 Nicotine dependence, cigarettes, uncomplicated
CPT/HCPCS: 96361; 85025; 36415; 83690; 80053; 96372; 96374; 99284; J2550; J7030; J2405

== ENCOUNTER 2021-11-22 10:10 | Emergency (ER) | payer OTHER ==
--- OUTSIDE RECORDS SUMMARY | 2021-11-22 10:15 | XMS REPORT | Continuity of Care Document ---
:1960 Author Organization [facility] t Address [address] [place] [address] Care Team Providers Name Role Phone [facility] Primary Care Physician MATT SIMPSON Attending Clinician Unavailable MATT SIMPSON Attending Clinician Unavailable Doctor Unassigned, [place] Attending Clinician Unavailable WALLY KRISHNAMURTHY Attending Clinician Unavailable Natacha Brewster Attending Clinician Payers Payer Name Policy Type Policy Number Effective Date Expiration Date Sarina castelan [facility] [id number] 2017 00:00:00 PLUS Problems This patient has [...] s TRANSDER 5- ity of MAL 00:00: [place] [facility] ACETAMIN DRUG Active Other-Cmnt Univ ers OPHEN INGREDI - ity of 00:00: [place] 00 [facility] Hmg-Coa Propensi Inactiv Reductas ty to e 2-28 e adverse 00:00: Inhibito reaction 00 rs to drug Nitrogly Propensi Active 2017-03 cerin ty to 1-08 adverse 00:00: reaction 00 to drug Social History Social Habit Start Date Stop Date Quantity Comments Source Alcohol intake 2016-05-01 2016-05-01 Current [facility] es 00:00:00 00:00:00 non-drinker of Medical nter alcohol (finding) Sex Assigned At [birth year] [facility] 00:00:00 00:00:00 [facility] Smoking Status Start Date Stop Date Source Current every day smoker 2016-05-01 00:00:00 [facility] Medications Ordered Filled Start Stop Current Ordering Indication Dosage Frequency Signature Comments Components Source Medication Medication Date Date Medication? Clinician (SIG) Name Name losartan 2-0 No 1mg 100 7-12 mg-hydrochl 00:00: orothiazide 00 25 mg tablet carvedilol 2-0 No 1mg 12.5 mg 7-12 tablet 00:00: 00 clonidine 2022-0 No 1mg HCl 0.3 mg 5-26 tablet 00:00: 00 levothyroxi 2-0 No 1mcg ne 137 mcg 5-23 tablet 00:00: 00 metformin 2-0 No 1mg ER 500 mg 4-24 tablet,exte 00:00: nded 00 release 24 hr fenofibrate 2-0 No 1mg 160 mg 4-21 tablet 00:00: 00 clonidine 2022-0 No 1mg HCl 0.3 mg 4-20 tablet 00:00: 00 levothyroxi 2022-0 No 1mcg ne 137 mcg 4-06 tablet [...] 5 mcg 7-27 tablet 00:00: 00 levothyroxi 2021-0 No 1mcg ne 137 mcg 7-19 tablet 00:00: 00 clonidine 2021-0 No 1mg HCl 0.2 mg 5-04 tablet 00:00: 00 ezetimibe 2021-0 No 1mg 10 mg 5-04 tablet 00:00: 00 losartan 2021-0 No 1mg 100 5-04 mg-hydrochl 00:00: orothiazide [...] 5 mcg 3-17 tablet 00:00: 00 levothyroxi 2021-0 No 1mcg ne 137 mcg 3-17 tablet [...] amlodipine 2018-0 No 1mg 5 mg tablet 8- 00:00: 00 amlodipine 2018-0 No 1mg 5 mg tablet 8- 00:00: 00 levothyroxi 2018-0 No 1mcg ne [...] 1 mg tablet 5-30 00:00: 00 Trileptal 2016- No 1mg 600 mg 5-30 tablet 00:00: 00 mirtazapine 0 No 1mg 30 mg 5-30 tablet 00:00: 00 oxcarbazepi 0 No 1mg ne 600 mg 5-30 tablet 00:00: 00 baclofen 10 No 1mg mg tablet 5-30 00:00: 00 levothyroxi No 1mcg ne 150 mcg 5-30 tablet 00:00: 00 hydroxyzine No 1mg pamoate 50 5-30 mg capsule 00:00: 00 OXcarbazepi Yes 600mg Q.[id number] Take [address] [facility] [address] ne 2-23 [id number] [facility] (TRILEPTAL) 10:23: 3D mouth 3 Med ical 600 MG 59 (three) Center tablet times daily. PARoxetine Yes 40mg QD Take [address] (PAXIL) 40 2-23 by [facility] tablet 10:23: nightly. [address] PARoxetine Yes 40mg QD Take [address] (PAXIL) 40 2-23 [facility] tablet 10:23: nightly. [address] OXcarbazepi Yes 600mg Q.[id number] Take [address] ne 2-23 [id number] [facility] (TRILEPTAL) 10:23: 3D mouth 3 Med ical 600 MG 59 (three) Center tablet times daily. PARoxetine Yes 40mg QD Take [address] (PAXIL) 40 2-23 by [facility] tablet 10:23: nightly. [address] OXcarbazepi Yes 600mg Q.[id number] Take [address] [address] ne 2-23 [id number] [facility] (TRILEPTAL) 10:23: 3D mouth 3 Med ical 600 MG 59 (three) Center tablet times daily. LORazepam Yes 1mg Take [address] [facility] (ATIVAN) 1 2-23 tablet (1 [facility] tablet 00:00: mg total) Med ical 00 by mouth 3 Center (three) times daily as needed for Anxiety for up to 5 doses. Max Daily Amount: 3 mg LORazepam 2017-0 Yes 1mg Take [address] [facility] [address] (ATIVAN) 1 2-23 tablet (1 [facility] tablet 00:00: mg total) Med ical 00 by mouth 3 Center (three) times daily as needed for Anxiety for up to 5 doses. Max Daily Amount: 3 mg LORazepam 2016-0 Yes 1mg Take [address] [facility] [address] (ATIVAN) 1 2-23 tablet (1 [facility] tablet 00:00: mg total) Med ical 00 by mouth 3 Center (three) times daily as needed for Anxiety for up to 5 doses. Max Daily Amount: 3 mg levothyroxi 2014-0 Yes 100ug QD Take [address] ne 4-04 mcg [facility] (SYNTHROID, 12:29: mouth Medic al LEVOTHROID) 18 daily. Center 100 MCG tablet levothyroxi 2014-0 Yes 100ug QD Take [address] ne 4-04 mcg [facility] (SYNTHROID, 12:29: mouth Medic al LEVOTHROID) 18 daily. Center 100 MCG tablet levothyroxi 2014-0 Yes 100ug QD Take 100 [facility] [...] Goal Plan of Care Note [code = 86493-9] Goal Plan of Care Note [code = 74684-3] Goal Plan of Care Note [code = 81706-2] Goal Plan of Care Note [code = 43463-4] Goal Plan of Care Note [code = 29119-6] Goal Plan of Care Note [code = 47953-1] Goal Plan of Care Note [code = 34581-7] Goal Plan of Care Note [code = 47051-9] Goal Plan of Care Note [code = 25959-5] Goal Plan of Care Note [code = 84693-5] Goal Plan of Care Note [code = 77232-4] Goal Plan of Care Note [code = 30471-0] Goal Plan of Care Note [code = 83615-2] Goal Plan of Care Note [code = 25818-0] Goal Plan of Care Note [code = 37680-0] Goal Plan of Care Note [code = 99911-9] Goal Plan of Care Note [code = 52949-0] Goal Plan of Care Note [code = 18401-4] Goal Plan of Care Note [code = 86751-2] Goal Plan of Care Note [code = 47205-9] Goal Plan of Care Note [code = 94531-9] Goal Plan of Care Note [code = 16757-7] Goal Plan of Care Note [code = 75054-1] Goal Plan of Care Note [code = 75149-0] Goal Plan of Care Note [code = 77635-1] Goal Plan of Care Note [code = 81253-1] Goal Plan of Care Note [code = 75690-3] Goal Plan of Care Note [code = 00202-2] Goal Plan of Care Note [code = 44406-8] Goal Plan of Care Note [code = 98364-7] Goal Plan of Care Note [code = 93357-9] Goal Plan of Care Note [code = 96821-5] Goal Plan of Care Note [code = 94013-9] Goal Plan of Care Note [code = 20013-3] Goal Plan of Care Note [code = 40617-6] Goal Plan of Care Note [code = 94876-7] Goal Plan of Care Note [code = 40233-9] Goal Plan of Care Note [code = 77212-3] Goal Plan of Care Note [code = 13693-6] Goal Plan of Care Note [code = 14172-0] Goal Plan of Care Note [code = 07738-3] Goal Plan of Care Note [code = 45548-8] Goal Plan of Care Note [code = 34124-1] Goal Plan of Care Note [code = 95292-8] Goal Plan of Care Note [code = 79640-3] Goal Plan of Care Note [code = 95665-9] Goal Plan of Care Note [code = 89451-4] Goal Plan of Care Note [code = 20885-9] Goal Plan of Care Note [code = 51214-0] Goal Plan of Care Note [code = 37203-0] Goal Plan of Care Note [code = 79522-8] Encounters Start End Encounter Admission Attending Care Care Encounter Source Date/Time Date/Time Type Type Clinicians Facility Department ID 2021-06-01 Outpatient [facility] [id number] [place] 01:36:29 [id number] [facility] 2021-09-17 2021-09-17 Outpatient [id number] aa [id number] 00:00:00 00:00:00 Visit [id number] 2020-08-03 2020-08-03 Outpatient MATT VÁSQUEZ [facility] [id number] Univers 10:00:00 10:00:00 MATT SIMPSON [id number] [facility] 2020-08-03 2020-08-03 Outpatient MATT VÁSQUEZ [facility] [id number] Univers 10:00:00 10:00:00 MATT SIMPSON [facility] 2020-07-25 2020-07-25 Orders Doctor FISH [id number] 00:00:00 00:00:00 Only Unassigned, BK [id number] [facility] [id number] 2019-09-26 2019-09-26 Outpatient Bertin KRISHNAMURTHY [facility] [id number] Univers 16:00:00 16:00:00 WALLY [id number] [facility] 2019-09-26 2019-09-26 [facility] [id number] Univers 16:00:00 16:00:00 WALLY yeager [facility] 2018-10-21 2018-10-21 Telephone Gramm, [facility] [id number] 00:00:00 00:00:00 Natacha Nguyen [id number] [place] 4.2.7.2.686 [place] [id number] nal 204 Building Results Test Description Test Time Test Comments Results Result Comments Source TSH, THIRD GENERATION 2021-06-27 05:15:49 Test Item Value Reference Range Interpretation Comme nts TSH, THIRD GENERATION (test code = 2821) 2.080 UIU/ML 0.400-4.100 HEMOGLOBIN [id number] 03:46:00 Test Item Value Reference Range Interpretation Comments HEMOGLOBIN A1c (test 6.6 % 4.2-5.6 H AMERIC AN DIABETES code = 47503) ASSOCIATION IDELINES FOR HGB A1C: PREDIABETES/INC REASED [...] INDICATED, ALL TESTING PER FORMED ATCLINICAL PATH [facility], [place] [address] LABORATORY DIRE CTOR: DIANA RUSS M.D. CLIA NUMBER [id number] [facility] [place]. [id number] LIPID [id number] 02:59:52 Test Item Value Reference Range Interpretation Comments CHOLESTEROL (test 292 MG/DL <200 H code = 2210) TRIGLYCERIDES (test 184 MG/DL <150 H code = 2232) HDL CHOLESTEROL (test 51 MG/DL >39 code = 2220) CALC LDL CHOL (test 205 MG/DL <100 H NOTE: C ALCULATED LDL code = 2237) IS BASED ON MELBA-OLVEAR METHOD WHICHINCLUDES ADJUSTABLE TRIGLYCERIDE:VL DL CHOLESTEROL RAT IO.THIS FACTOR VARIES B Y MEASURED TRIGLY CERIDE AND NON-HDLCHOL ESTEROL CONCENTRATIONS WITH INCREASED CALCU LATED LDL SEENIN HIGH ER TRIGLYCERIDE OR LOWER NON-HDL SPECIME NS. FOR MOREINFORMATION , SEE CLIENT ANNOUNCE MENT AT [email or web address] RISK RATIO LDL/HDL 4.02 RATIO <3.22 H (test code = 2238) [id number] 00:00:00 Test Item Value Reference Range Interpretation Comments TSH, THIRD GENERATION (test code 2.080 UIU/ML = 2821) [id number] 00:00:00 Test Item Value Reference Range Interpretation Comments TSH, THIRD GENERATION (test code 2.080 UIU/ML = 2821) LIPID [id number] 00:00:00 Test Item Value Reference Range Interpretation Comments CHOLESTEROL (test code = 2210) 292 MG/DL TRIGLYCERIDES (test code = 2232) 184 MG/DL HDL CHOLESTEROL (test code = 2220) 51 MG/DL CALC LDL CHOL (test code = 2237) 205 MG/DL RISK RATIO LDL/HDL (test code = 4.02 RATIO 2238) HEMOGLOBIN [id number] 00:00:00 Test Item Value Reference Range Interpretation Comments HEMOGLOBIN A1c (test code = 88364) 6.6 % HEMOGLOBIN [id number] 00:00:00 Test Item Value Reference Range Interpretation Comments HEMOGLOBIN A1c (test code = 53814) 6.6 % HEMOGLOBIN [id number] 00:00:00 Test Item Value Reference Range Interpretation Comments HEMOGLOBIN A1c (test code = 77562) 6.8 % HEMOGLOBIN [id number] 00:00:00 Test Item Value Reference Range Interpretation Comments HEMOGLOBIN A1c (test code = 67609) 6.8 % LIPID [id number] 00:00:00 Test Item Value Reference Range Interpretation Comments CHOLESTEROL (test code = 2210) 303 MG/DL TRIGLYCERIDES (test code = 2232) 191 MG/DL HDL CHOLESTEROL (test code = 2220) 61 MG/DL CALC LDL CHOL (test code = 2237) 205 MG/DL RISK RATIO LDL/HDL (test code = 3.36 RATIO 2238) [id number] 00:00:00 Test Item Value Reference Range Interpretation Comments TSH, THIRD GENERATION (test code 0.769 UIU/ML = 2821) [id number] 00:00:00 Test Item Value Reference Range Interpretation Comments TSH, THIRD GENERATION (test code 0.769 UIU/ML = 2821) COMPREHENSIVE METABOLIC [id number] 00:00:00 Test Item Value Reference Range Interpretation Comments GLUCOSE (test code = 2217) 131 MG/DL BUN (test code = 2208) 13 MG/DL CREATININE (test code = 2214) 0.65 MG/DL eGFR AMER. (test code 113 ML/MIN/1.73 = 75177) eGFR NON- AMER. (test 97 ML/MIN/1.73 code = 85838) CALC BUN/CREAT (test code = 20 RATIO [...] (test code = 2219) 23 U/L HEMOGLOBIN [id number] 00:00:00 Test Item Value Reference Range Interpretation Comments HEMOGLOBIN A1c (test code = 54830) 6.6 % HEMOGLOBIN [id number] 00:00:00 Test Item Value Reference Range Interpretation Comments HEMOGLOBIN A1c (test code = 72867) 6.6 % LIPID [id number] 00:00:00 Test Item Value Reference Range Interpretation Comments CHOLESTEROL (test code = 2210) 261 MG/DL TRIGLYCERIDES (test code = 2232) 159 MG/DL HDL CHOLESTEROL (test code = 2220) 82 MG/DL CALC LDL CHOL (test code = 2237) 150 MG/DL RISK RATIO LDL/HDL (test code = 1.83 RATIO 2238) COMPREHENSIVE METABOLIC [id number] 00:00:00 Test Item Value Reference Range Interpretation Comments GLUCOSE (test code = 2217) 144 MG/DL BUN (test code = 2208) 15 MG/DL CREATININE (test code = 2214) 0.85 MG/DL eGFR AMER. (test code 87 ML/MIN/1.73 = 51783) eGFR NON- AMER. (test 75 ML/MIN/1.73 code = 33922) CALC BUN/CREAT (test code = 18 RATIO [...] THYROX. BIND. CAPAC. (test code 1.1 = 34574) T4 (THYROXINE) (test code = 4.3 UG/DL 2819) CORRECTED T4 (FTI) (test code = 3.9 UG/DL 2820) TSH, THIRD GENERATION (test 18.900 UIU/ML code = 2821) HEMOGLOBIN [id number] 00:00:00 Test Item Value Reference Range Interpretation Comments HEMOGLOBIN A1c (test code = 55299) 6.7 % HEMOGLOBIN [id number] 00:00:00 Test Item Value Reference Range Interpretation Comments HEMOGLOBIN A1c (test code = 02708) 6.7 % LIPID [id number] 00:00:00 Test Item Value Reference Range Interpretation Comments CHOLESTEROL (test code = 2210) 267 MG/DL TRIGLYCERIDES (test code = 2232) 137 MG/DL HDL CHOLESTEROL (test code = 2220) 48 MG/DL CALC LDL CHOL (test code = 2237) 192 MG/DL RISK RATIO LDL/HDL (test code = 4.00 RATIO 2238) COMPREHENSIVE METABOLIC [id number] 00:00:00 Test Item Value Reference Range Interpretation Comments GLUCOSE (test code = 2217) 155 MG/DL BUN (test code = 2208) 14 MG/DL CREATININE (test code = 2214) 0.52 MG/DL eGFR AMER. (test code 122 ML/MIN/1.73 = 76824) eGFR NON- AMER. (test 105 ML/MIN/1.73 code = 37785) CALC BUN/CREAT (test code = 27 RATIO [...] A/G RATIO (test code = 1.7 RATIO 2233) BILIRUBIN, TOTAL (test code = <0.2 MG/DL 2206) ALKALINE PHOSPHATASE (test 115 U/L code = 2204) AST (test code = 2218) 17 U/L ALT (test code = 2219) 27 U/L THYROID II PROFILE (T3U, T4, T7, TSH)2019 00:00:00 Test Item Value Reference Range Interpretation Comments T-UPTAKE (test code = 2817) 33.1 % THYROX. BIND. CAPAC. (test code 1.0 = 16405) T4 (THYROXINE) (test code = 4.7 UG/DL 2819) CORRECTED T4 (FTI) (test code = 4.7 UG/DL 2820) TSH, THIRD GENERATION (test code 0.201 UIU/ML = 2821) SARS-CoV-2 (COVID-19) by RT-PCR (HIGH RISK)2019-09-18 00:00:00 Test Item Value Reference Range Interpretation Comments SARS-CoV-2 INTERPRETATION (test NEGATIVE code = 99172) SOURCE (test code = 36874) NOT SPECIFIED [id number] 00:00:00 Test Item Value Reference Range Interpretation Comments TSH, THIRD GENERATION (test code 2.490 UIU/ML = 2821) [id number] 00:00:00 Test Item Value Reference Range Interpretation Comments TSH, THIRD GENERATION (test code 2.490 UIU/ML = 2821) HEMOGLOBIN [id number] 00:00:00 Test Item Value Reference Range Interpretation Comments HEMOGLOBIN A1c (test code = 77306) 6.4 % HEMOGLOBIN [id number] 00:00:00 Test Item Value Reference Range Interpretation Comments HEMOGLOBIN A1c (test code = 47916) 6.4 % COMPREHENSIVE METABOLIC [id number] 00:00:00 Test Item Value Reference Range Interpretation Comments GLUCOSE (test code = 2217) 206 MG/DL BUN (test code = 2208) 23 MG/DL CREATININE (test code = 2214) 0.67 MG/DL eGFR AMER. (test code 112 ML/MIN/1.73 = 23298) eGFR NON- AMER. (test 97 ML/MIN/1.73 code = 38325) CALC BUN/CREAT (test code = 34 RATIO 2235) SODIUM (test code = 2231) 142 MEQ/L POTASSIUM (test code = 2228) 4.1 MEQ/L CHLORIDE (test code = 2215) 99 MEQ/L CARBON DIOXIDE (test code = 28 MEQ/L 6) CALCIUM (test code = 2209) 8.8 MG/DL [...] = 2219) 25 U/L VAGINAL PATHOGENS DNA [id number] 00:00:00 Test Item Value Reference Range Interpretation Comments MARK SPECIES (test code = ) NEGATIVE G. VAGINALIS (test code = ) NEGATIVE T. VAGINALIS (test code = 31793) NEGATIVE HEMOGLOBIN A1c [ADDED]2018-12-01 00:00:00 Test Item Value Reference Range Interpretation Comments HEMOGLOBIN A1c (test code = 58170) 6.7 % HEMOGLOBIN A1c [ADDED]2018-12-01 00:00:00 Test Item Value Reference Range Interpretation Comments HEMOGLOBIN A1c (test code = 39038) 6.7 % COMPREHENSIVE METABOLIC PANEL [ADDED]2018-12-01 00:00:00 Test Item Value Reference Range Interpretation Comments GLUCOSE (test code = 2217) 136 MG/DL BUN (test code = 2208) 15 MG/DL CREATININE (test code = 2214) 0.64 MG/DL eGFR AMER. (test code 115 ML/MIN/1.73 = 40820) eGFR NON- AMER. (test 99 ML/MIN/1.73 code = 79461) CALC BUN/CREAT (test code = 23 RATIO [...] code 1.280 UIU/ML = 2821) CBC W/AUTO [id number] 00:00:00 Test Item Value Reference Range Interpretation [...] code = 1015) 346 K/UL CBC W/AUTO [id number] 00:00:00 Test Item Value Reference Range Interpretation [...] (test code = 1015) 346 K/UL HEMOGLOBIN [id number] 00:00:00 Test Item Value Reference Range Interpretation Comments HEMOGLOBIN A1c (test code = 21211) 5.9 % HEMOGLOBIN [id number] 00:00:00 Test Item Value Reference Range Interpretation Comments HEMOGLOBIN A1c (test code = 26562) 5.9 % LIPID [id number] 00:00:00 Test Item Value Reference Range Interpretation Comments CHOLESTEROL (test code = 2210) 318 MG/DL TRIGLYCERIDES (test code = 2232) 263 MG/DL HDL CHOLESTEROL (test code = 2220) 51 MG/DL CALC LDL CHOL (test code = 2237) 214 MG/DL RISK RATIO LDL/HDL (test code = 4.20 RATIO 2238) COMPREHENSIVE METABOLIC [id number] 00:00:00 Test Item Value Reference Range Interpretation Comments GLUCOSE (test code = 2217) 113 MG/DL BUN (test code = 2208) 18 MG/DL CREATININE (test code = 2214) 0.70 MG/DL eGFR AMER. (test code 111 ML/MIN/1.73 = 60526) eGFR NON- AMER. (test 96 ML/MIN/1.73 code = 58060) CALC BUN/CREAT (test code = 26 RATIO [...] CALC GLOBULIN (test code = 2.4 G/DL 224) CALC A/G RATIO (test code = 2.0 RATIO 2234) BILIRUBIN, TOTAL (test code = <0.2 MG/DL 2206) ALKALINE PHOSPHATASE (test 80 U/L code = 2204) AST (test code = 2218) 21 U/L ALT (test code = 2219) 31 U/L [id number] 00:00:00 Test Item Value Reference Range Interpretation Comments TSH, THIRD GENERATION (test code 2.520 UIU/ML = 2821) [id number] 00:00:00 Test Item Value Reference Range Interpretation Comments TSH, THIRD GENERATION (test code 2.520 UIU/ML = 2821) CULTURE, [id number] 00:00:00 Test Item Value Reference Range Interpretation Comments CULTURE, URINE (test SPECIMEN NUMBER: code = 12793) [id number] CULTURE, [id number] 00:00:00 Test Item Value Reference Range Interpretation Comments CULTURE, URINE (test SPECIMEN NUMBER: code = 94764) [id number] BASIC METABOLIC [id number] 00:00:00 Test Item Value Reference Range Interpretation Comments GLUCOSE (test code = 2217) 135 MG/DL BUN (test code = 2208) 25 MG/DL CREATININE (test code = 2214) 0.76 MG/DL eGFR AMER. (test code 101 ML/MIN/1.73 = 50418) eGFR NON- AMER. (test 87 ML/MIN/1.73 code = 90458) SODIUM (test code = 2231) 139 MEQ/L POTASSIUM (test code = 2228) 4.7 MEQ/L CHLORIDE (test code = 2215) 99 MEQ/L CARBON DIOXIDE (test code = 26 MEQ/L 2205) CALCIUM (test code = 2209) 9.4 MG/DL LIPID [id number] 00:00:00 Test Item Value Reference Range Interpretation Comments CHOLESTEROL (test code = 2210) 262 MG/DL TRIGLYCERIDES (test code = 2232) 300 MG/DL HDL CHOLESTEROL (test code = 2220) 36 MG/DL CALC LDL CHOL (test code = 2237) 166 MG/DL RISK RATIO LDL/HDL (test code = 4.61 RATIO 2238) HEMOGLOBIN [id number] 00:00:00 Test Item Value Reference Range Interpretation Comments HEMOGLOBIN A1c (test code = 52515) 6.2 % HEMOGLOBIN [id number] 00:00:00 Test Item Value Reference Range Interpretation Comments HEMOGLOBIN A1c (test code = 98785) 6.2 % [id number] 00:00:00 Test Item Value Reference Range Interpretation Comments TSH, THIRD GENERATION (test code 0.988 UIU/ML = 2821) [id number] 00:00:00 Test Item Value Reference Range Interpretation Comments TSH, THIRD GENERATION (test code 0.988 UIU/ML = 2821) COMPREHENSIVE METABOLIC [id number] 00:00:00 Test Item Value Reference Range Interpretation Comments GLUCOSE (test code = 2217) 109 MG/DL BUN (test code = 2208) 25 MG/DL CREATININE (test code = 2214) 0.78 MG/DL eGFR AMER. (test code 98 ML/MIN/1.73 = 05074) eGFR NON- AMER. (test 84 ML/MIN/1.73 code = 36184) CALC BUN/CREAT (test code = 32 RATIO [...] (test code = 2219) 25 U/L LIPID [id number] 00:00:00 Test Item Value Reference Range Interpretation Comments CHOLESTEROL (test code = 2210) 295 MG/DL TRIGLYCERIDES (test code = 2232) 218 MG/DL HDL CHOLESTEROL (test code = 2220) 46 MG/DL CALC LDL CHOL (test code = 2237) 205 MG/DL RISK RATIO LDL/HDL (test code = 4.47 RATIO 2238) HEMOGLOBIN [id number] 00:00:00 Test Item Value Reference Range Interpretation Comments HEMOGLOBIN A1c (test code = 57325) 7.0 % HEMOGLOBIN [id number] 00:00:00 Test Item Value Reference Range Interpretation Comments HEMOGLOBIN A1c (test code = 12230) 7.0 % [id number] 00:00:00 Test Item Value Reference Range Interpretation Comments TSH, THIRD GENERATION (test code 0.565 UIU/ML = 2821) [id number] 00:00:00 Test Item Value Reference Range Interpretation Comments TSH, THIRD GENERATION (test code 0.565 UIU/ML = 2821) [id number] 00:00:00 Test Item Value Reference Range Interpretation Comments TSH, THIRD GENERATION (test code 0.379 UIU/ML = 2821) [id number] 00:00:00 Test Item Value Reference Range Interpretation Comments TSH, THIRD GENERATION (test code 0.379 UIU/ML = 2821) CULTURE, [id number] 00:00:00 Test Item Value Reference Range Interpretation Comments CULTURE, URINE (test SPECIMEN NUMBER: code = 11907) [id number] COMPREHENSIVE METABOLIC [id number] 00:00:00 Test Item Value Reference Range Interpretation Comments GLUCOSE (test code = 2217) 128 MG/DL BUN (test code = 2208) 26 MG/DL CREATININE (test code = 2214) 0.92 MG/DL eGFR AMER. (test code 81 ML/MIN/1.73 = 21565) eGFR NON- AMER. (test 70 ML/MIN/1.73 code = 62602) CALC BUN/CREAT (test code = 28 RATIO [...] CALC GLOBULIN (test code = 2.6 G/DL 224) CALC A/G RATIO (test code = 1.8 RATIO 2233) BILIRUBIN, TOTAL (test code = <0.2 MG/DL 2206) ALKALINE PHOSPHATASE (test 104 U/L code = 2204) AST (test code = 2218) 24 U/L ALT (test code = 2219) 29 U/L ACUTE HEPATITIS [id number] 00:00:00 Test Item Value Reference Range Interpretation Comments HEPATITIS A IgM (test code = NON-REACTIVE 49356) HEPATITIS B CORE IgM (test code NON-REACTIVE = 4644) HEPATITIS B SURF AG (test code = NON-REACTIVE 9709) HEPATITIS C ANTIBODY (test code NON-REACTIVE = 4644) INTERPRETATION HEPATITIS A: (NOTE) (test code = 2552) INTERPRETATION HEPATITIS B: (NOTE) (test code = 28516) INTERPRETATION HEPATITIS C: (NOTE) (test code = 06484) [id number] 00:00:00 Test Item Value Reference Range Interpretation Comments AMYLASE (test code = 2205) 32 U/L [id number] 00:00:00 Test Item Value Reference Range Interpretation Comments LIPASE (test code = 2057) 22 U/L [id number] 00:00:00 Test Item Value Reference Range Interpretation Comments LIPASE (test code = 205) 22 U/L [id number] 00:00:00 Test Item Value Reference Range Interpretation Comments TSH, THIRD GENERATION (test code 4.890 UIU/ML = 2821) [id number] 00:00:00 Test Item Value Reference Range Interpretation Comments TSH, THIRD GENERATION (test code 4.890 UIU/ML = 2821) COMPREHENSIVE METABOLIC [id number] 00:00:00 Test Item Value Reference Range Interpretation Comments GLUCOSE (test code = 2217) 121 MG/DL BUN (test code = 2208) 40 MG/DL CREATININE (test code = 2214) 1.48 MG/DL eGFR AMER. (test code 45 ML/MIN/1.73 = 32106) eGFR NON- AMER. (test 39 ML/MIN/1.73 code = 88107) CALC BUN/CREAT (test code = 27 RATIO [...] (test code = 2219) 20 U/L LIPID [id number] 00:00:00 Test Item Value Reference Range Interpretation Comments CHOLESTEROL (test code = 2210) 261 MG/DL TRIGLYCERIDES (test code = 2232) 165 MG/DL HDL CHOLESTEROL (test code = 2220) 58 MG/DL CALC LDL CHOL (test code = 2237) 170 MG/DL RISK RATIO LDL/HDL (test code = 2.93 RATIO 2238) CBC W/AUTO [id number] 00:00:00 Test Item Value Reference Range Interpretation [...] code = 1015) 378 K/UL CBC W/AUTO [id number] 00:00:00 Test Item Value Reference Range Interpretation [...] (test code = 1015) 378 K/UL HEMOGLOBIN [id number] 00:00:00 Test Item Value Reference Range Interpretation Comments HEMOGLOBIN A1c (test code = 80142) 6.4 % HEMOGLOBIN [id number] 00:00:00 Test Item Value Reference Range Interpretation Comments HEMOGLOBIN A1c (test code = 22926) 6.4 % [id number] 00:00:00 Test Item Value Reference Range Interpretation Comments TSH (test code = 2821) 5.290 UIU/ML [id number] 00:00:00 Test Item Value Reference Range Interpretation Comments TSH (test code = 2821) 5.290 UIU/ML THYROID II PROFILE (T3U, T4, T7, TSH)2017-04-18 00:00:00 Test Item Value Reference Range Interpretation Comments T3 UPTAKE (test code = 2817) 32.3 % T4 (THYROXINE) (test code = 5.2 UG/DL 281) CALCULATED T7 (FTI) (test code = 1.68 2820) TSH (test code = 2821) 1.030 UIU/ML COMPREHENSIVE METABOLIC [id number] 00:00:00 Test Item Value Reference Range Interpretation Comments GLUCOSE (test code = 2217) 106 MG/DL BUN (test code = 2208) 23 MG/DL CREATININE (test code = 2214) 0.66 MG/DL eGFR AMER. (test code 114 ML/MIN/1.73 = 63633) eGFR NON- AMER. (test 99 ML/MIN/1.73 code = 98288) CALC BUN/CREAT (test code = 35 RATIO 2235) SODIUM (test code = 2231) 138 MEQ/L POTASSIUM (test code = 2228) 5.1 MEQ/L CHLORIDE (test code = 2215) 96 MEQ/L CARBON DIOXIDE (test code = 27 MEQ/L 2206) CALCIUM (test code = 2209) 9.6 MG/DL PROTEIN, TOTAL (test code = 7.1 G/DL 222) ALBUMIN (test code = 2201) 4.7 G/DL CALC GLOBULIN (test code = 2.4 G/DL 2240) CALC A/G RATIO (test code = 2.0 RATIO 2234) BILIRUBIN, TOTAL (test code = 0.2 MG/DL 220) ALKALINE PHOSPHATASE (test 101 U/L code = 2204) AST (test code = 2218) 21 U/L ALT (test code = 2219) 31 U/L THYROID II PROFILE (T3U, T4, T7, TSH)2017-02-26 00:00:00 Test Item Value Reference Range Interpretation Comments T3 UPTAKE (test code = 2817) 31.6 % T4 (THYROXINE) (test code = 5.4 UG/DL 281) CALCULATED T7 (FTI) (test code = 1.71 2820) TSH (test code = 2821) 0.335 UIU/ML COMPREHENSIVE METABOLIC [id number] 00:00:00 Test Item Value Reference Range Interpretation Comments GLUCOSE (test code = 2217) 103 MG/DL BUN (test code = 2208) 15 MG/DL CREATININE (test code = 2214) 0.77 MG/DL eGFR AMER. (test code 101 ML/MIN/1.73 = 35243) eGFR NON- AMER. (test 87 ML/MIN/1.73 code = 28236) CALC BUN/CREAT (test code = 19 RATIO 2235) SODIUM (test code = 2231) 136 MEQ/L POTASSIUM (test code = 2228) 4.7 MEQ/L CHLORIDE (test code = 2215) 94 MEQ/L CARBON DIOXIDE (test code = 27 MEQ/L 2205) CALCIUM (test code = 2209) 9.4 MG/DL PROTEIN, TOTAL (test code = 6.4 G/DL 2228) ALBUMIN (test code = 220) 4.3 G/DL CALC GLOBULIN (test code = 2.1 G/DL 2239) CALC A/G RATIO (test code = 2.0 RATIO 2233) BILIRUBIN, TOTAL (test code = 0.1 MG/DL 2206) ALKALINE PHOSPHATASE (test 83 U/L code = 2203) AST (test code = 2218) 15 U/L ALT (test code = 2219) 24 U/L THYROID II PROFILE (T3U, T4, T7, TSH)2016-08-22 00:00:00 Test Item Value Reference Range Interpretation Comments T3 UPTAKE (test code = 281) 35.1 % T4 (THYROXINE) (test code = 3.9 UG/DL 2818) CALCULATED T7 (FTI) (test code = 1.37 2820) TSH (test code = 2821) 0.424 UIU/ML CULTURE, [id number] 00:00:00 Test Item Value Reference Range Interpretation Comments CULTURE, URINE (test SPECIMEN NUMBER: code = 02158) [id number] CULTURE, [id number] 00:00:00 Test Item Value Reference Range Interpretation Comments CULTURE, URINE (test SPECIMEN NUMBER: code = 41232) [id number]
--- NOTE | 2021-11-22 11:09 | EDPHYS ---
Physician Documentation [facility] Name: Jaimie Amanda Age: 60 yrs Sex: Female : 1960 Arrival Date: 11/22/2021 Time: 10:12 Bed 13 Private MD: ED Physician Tera Raymond HPI: 11/22 16:21 This 60 yrs old Female presents to ER via Ambulatory with complaints of Abdominal Pain, kdr Nausea. 16:21 Patient states that she was jogging on Thursday fell and hit her knees. She also knocked kdr a tooth out. She is here today because she also hit her right upper abdomen and is continuing to have pain in her abdomen since the fall. She has had some nausea and vomiting and occasional diarrhea last which was at 2:00 this morning. . Onset: The symptoms/episode began/occurred acutely. Severity of symptoms: At their worst the symptoms were mild. The patient has not experienced similar symptoms in the past. The patient has been recently seen by a physician:. Historical: - Allergies: 10:22 No Known Allergies; kr3 - PMHx: 10:22 Hypothyroidism; diabetes mellitus; Hypertensive disorder; depressive disorder; Anxiety; kr3 - PSHx: 10:22 Thyroidectomy; kr3 - Immunization history:: Adult Immunizations up to date, Client reports receiving the 2nd dose of the Covid vaccine. - Social history:: Smoking status: Patient reports the use of cigarette tobacco products, smokes one-half pack cigarettes per day. ROS: 16:21 Constitutional: Negative for fever, chills, and weight loss, Eyes: Negative for injury, kdr pain, redness, and discharge, ENT: Negative for injury, pain, and discharge, Neck: Negative for injury, pain, and swelling, Cardiovascular: Negative for chest pain, palpitations, and edema, Respiratory: Negative for shortness of breath, cough, wheezing, and pleuritic chest pain, Abdomen/GI: Negative for abdominal pain, nausea, vomiting, diarrhea, and constipation, Back: Negative for injury and pain, : Negative for injury, bleeding, discharge, and swelling, MS/Extremity: Negative for injury and deformity, Skin: Negative for injury, rash, and discoloration, Neuro: Negative for headache, weakness, numbness, tingling, and seizure activity. Psych: Negative for depression, anxiety, suicide ideation, homicidal ideation, and hallucinations, Allergy/Immunology: Negative for hives, rash, and allergies, Endocrine: Negative for neck swelling, polydipsia, polyuria, polyphagia, and marked weight changes, Hematologic/Lymphatic: Negative for swollen nodes, abnormal bleeding, and unusual bruising. Exam: 16:21 Constitutional: This is a well developed, well nourished patient who is awake, alert, kdr and in no acute distress. Head/Face: Normocephalic, atraumatic. Eyes: Pupils equal round and reactive to light, extra-ocular motions intact. Lids and lashes normal. Conjunctiva and sclera are non-icteric and not injected. Cornea within normal limits. Periorbital areas with no swelling, redness, or edema. Neck: Trachea midline, no thyromegaly or masses palpated, and no cervical lymphadenopathy. Supple, full range of motion without nuchal rigidity, or vertebral point tenderness. No Meningismus. Chest/axilla: Normal chest wall appearance and motion. Nontender with no deformity. No lesions are appreciated. Cardiovascular: Regular rate and rhythm with a normal S1 and S2. No gallops, murmurs, or rubs. Normal PMI, no JVD. No pulse deficits. Respiratory: Lungs have equal breath sounds bilaterally, clear to auscultation and percussion. No rales, rhonchi or wheezes noted. No increased work of breathing, no retractions or nasal flaring. Back: No spinal tenderness. No costovertebral tenderness. Full range of motion. Skin: Warm, dry with normal turgor. Normal color with no rashes, no lesions, and no evidence of cellulitis. MS/ Extremity: Pulses equal, no cyanosis. Neurovascular intact. Full, normal range of motion. Neuro: Awake and alert, GCS 15, oriented to person, place, time, and situation. Cranial nerves II-XII grossly intact. Motor strength 5/5 in all extremities. Sensory grossly intact. Cerebellar exam normal. Normal gait. Psych: Awake, alert, with orientation to person, place and time. Behavior, mood, and affect are within normal limits. 16:21 Abdomen/GI: Inspection: abdomen appears normal, Bowel sounds: normal, Palpation: soft, mild abdominal tenderness, in the right upper quadrant. Vital Signs: 10:16 BP 175 / 102; Pulse 98; Resp 18; Temp 98.1; Pulse Ox 98% on R/A; Weight 74.84 kg; kr3 Height 5 ft. 7 in. (170.18 cm); Pain 9/10; 11:15 BP 155 / 89; Pulse 76; Resp 17 S; Pulse Ox 95% on R/A; Pain 7/10; jg9 12:30 BP 184 / 71; Pulse 72; Resp 17 S; Pulse Ox 94% ; Pain 9/10; jg9 10:16 Body Mass Index 25.84 (74.84 kg, 170.18 cm) kr3 MDM: 11:08 Patient medically screened. kdr 16:21 Data reviewed: vital signs, nurses notes, lab test result(s), radiologic studies. kdr 11/22 10:49 Order name: CBC with Diff; Complete Time: 12:15 kdr 11/22 10:49 Order name: Chem 7; Complete Time: 13:15 kdr 11/22 10:49 Order name: CT Abd/Pelvis - IV Contrast Only kdr 11/22 11:09 Order name: Misc. Order: Hold discharge until CT report available; Complete Time: 13:17 kdr 11/22 11:16 Order name: Labs - recollect needed: please recollect chemistry; Complete Time: 11:38 em1 11/22 11:53 Order name: Labs - recollect needed; Complete Time: 12:31 em1 Administered Medications: 11:34 Drug: Zofran (Ondansetron) 4 mg Route: IVP; Site: left forearm; jg9 12:52 Follow up: Response: No adverse reaction; No change in condition jg9 11:38 Drug: Ketorolac 15 mg Route: IVP; Site: left forearm; jg9 12:51 Follow up: Response: No adverse reaction; No change in condition jg9 12:35 Drug: Tylenol 1000 mg {Note: 12/16 HEADACHE.} Route: PO; jg9 12:52 Follow up: Response: No adverse reaction; Pain is unchanged, physician notified jg9 Disposition Summary: 11/22/21 11:08 Discharge Ordered Location: Home kdr Problem: new kdr Symptoms: have improved kdr Condition: Stable kdr Diagnosis - Upper abdominal pain, unspecified kdr Followup: kdr - With: Private Physician - When: 2 - 3 days - Reason: If symptoms return, Further diagnostic work-up, Recheck today's complaints, Continuance of care, Re-evaluation by your physician Discharge Instructions: - Discharge Summary Sheet kdr - Abdominal Pain, Adult, [id number] kdr - General Headache Without Cause, [id number] kdr Forms: - Medication Reconciliation Form kdr - Thank You Letter kdr Signatures: Dispatcher [employer] Tera Calderon MD MD kdr Agustin Marley em1 Viridiana Diehl RN RN jg9 Jessenia Young RN RN kr3
--- NOTE | 2021-11-22 11:09 | ER ---
Nurse's Notes [facility] Name: Jaimie Amanda Age: 60 yrs Sex: Female : 1960 Arrival Date: 11/22/2021 Time: 10:12 Bed 13 Private MD: Diagnosis: Upper abdominal pain, unspecified Presentation: 11/22 10:16 Chief complaint: Patient states: Thursday during jogging tripped and fell, hit knee, kr3 knocked a tooth out, hit right side of abdomen. N/V since fall and diarrhea started around 0200 this morning. Coronavirus screen: Vaccine status: Patient reports receiving the 2nd dose of the covid vaccine. Client denies travel out of the [place] in the last 14 days. Ebola Screen: Patient denies travel to an Ebola-affected area in the 21 days before illness onset. Initial Sepsis Screen: Does the patient meet any 2 criteria? No. Patient's initial sepsis screen is negative. Does the patient have a suspected source of infection? Yes: Acute abdominal pain. Risk Assessment: Do you want to hurt yourself or someone else? Patient reports no desire to harm self or others. Onset of symptoms was November 18, 2021. 10:16 Method Of Arrival: Ambulatory kr3 10:16 Acuity: ZHEN 3 kr3 Triage Assessment: 10:23 General: Appears in no apparent distress. uncomfortable, Behavior is calm, cooperative, kr3 appropriate for age. Pain: Complains of pain in right upper quadrant and right lower quadrant. 11:05 GI: Abd is soft X 4 quads Abdomen is tender to palpation X 4 quads. Reports lower jg9 abdominal pain, upper abdominal pain. Historical: - Allergies: 10:22 No Known Allergies; kr3 - PMHx: 10:22 Hypothyroidism; diabetes mellitus; Hypertensive disorder; depressive disorder; Anxiety; kr3 - PSHx: 10:22 Thyroidectomy; kr3 - Immunization history:: Adult Immunizations up to date, Client reports receiving the 2nd dose of the Covid vaccine. - Social history:: Smoking status: Patient reports the use of cigarette tobacco products, smokes one-half pack cigarettes per day. Screenin:04 Abuse screen: Denies threats or abuse. Denies injuries from another. Nutritional jg9 screening: No deficits noted. Tuberculosis screening: No symptoms or risk factors identified. Fall Risk Fall in past 12 months (25 points). Assessment: 11:05 GI: Bowel sounds present X 4 quads. jg9 12:00 Reassessment: No changes from previously documented assessment. Patient and/or family jg9 updated on plan of care and expected duration. Pain level reassessed. Patient is alert, oriented x 3, equal unlabored respirations, skin warm/dry/pink. Vital Signs: 10:16 BP 175 / 102; Pulse 98; Resp 18; Temp 98.1; Pulse Ox 98% on R/A; Weight 74.84 kg; kr3 Height 5 ft. 7 in. (170.18 cm); Pain 9/10; 11:15 BP 155 / 89; Pulse 76; Resp 17 S; Pulse Ox 95% on R/A; Pain 7/10; jg9 12:30 BP 184 / 71; Pulse 72; Resp 17 S; Pulse Ox 94% ; Pain 9/10; jg9 10:16 Body Mass Index 25.84 (74.84 kg, 170.18 cm) kr3 ED Course: 10:12 Patient arrived in ED. mr 10:13 Tera Raymond MD is Attending Physician. kdr 10:22 Triage completed. kr3 10:23 Arm band placed on right wrist. Patient placed in an exam room, on a stretcher. kr3 10:30 Viridiana Diehl, CATY is Primary Nurse. jg9 11:04 Missed attempt(s): 22 gauge in right antecubital area. jg9 11:04 Missed attempt(s): 24 gauge in left wrist. jg9 11:05 Patient has correct armband on for positive identification. Bed in low position. Call jg9 light in reach. Side rails up X 1. 11:17 Missed attempt(s): 22 gauge in left wrist. jg9 11:24 Inserted saline lock: 22 gauge in left forearm, using aseptic technique. jg9 12:51 CT Abd/Pelvis - IV Contrast Only In Process Unspecified. EDMS 13:19 No provider procedures requiring assistance completed. jg9 13:20 IV discontinued. jg9 Administered Medications: 11:34 Drug: Zofran (Ondansetron) 4 mg Route: IVP; Site: left forearm; jg9 12:52 Follow up: Response: No adverse reaction; No change in condition jg9 11:38 Drug: Ketorolac 15 mg Route: IVP; Site: left forearm; jg9 12:51 Follow up: Response: No adverse reaction; No change in condition jg9 12:35 Drug: Tylenol 1000 mg {Note: 12/16 HEADACHE.} Route: PO; jg9 12:52 Follow up: Response: No adverse reaction; Pain is unchanged, physician notified jg9 Medication: 13:20 VIS not applicable for this client. jg9 Outcome: 11:08 Discharge ordered by . aubree 13:19 Condition: stable jg9 13:26 Discharged to patient left before signing her paperwork jg9 13:27 Discharge instructions given to patient, Patient did not wait for discharge jg9 instructions 13:32 Patient left the ED. jg9 Signatures: Dispatcher [employer] EDMS Tera Raymond MD MD kdr Rivera, Viridiana Loredo RN RN jg9 Jessenia Young RN RN kr3
[2021-11-22 11:12] LABS: Hematocrit 40.4 % (36.0-45.0); Lymphocytes % 32.4 % (15.3-44.8); MCV 90.6 fL (80-100); MPV 6.3 fL (7.6-11.3); RBC Red Blood Cell Count 4.47 M/uL (3.86-4.86)
[2021-11-22] MEDS ORDERED: KETOROLAC 30 MG/ML INJ ONE ×2 (11:41→12:11)
[2021-11-22] MEDS ORDERED: ONDANSETRON 4 MG/2 ML VIAL ONE (11:43)
[2021-11-22] MEDS ORDERED: ACETAMINOPHEN 500 MG TAB ONE (12:44)
--- NOTE | 2021-11-22 12:58 | RAD REPORT ---
EXAM DESCRIPTION: CTAbdomen Pelvis W Contrast - 11/22/2021 12:49 pm CLINICAL HISTORY: Epigastric pain COMPARISON: Abdomen Pelvis W Contrast dated 07/27/2021; Abdomen Pelvis W Contrast dated 05/30/2021 ; Abdomen Pelvis W Contrast dated 04/29/2021; Abdomen Pelvis W Contrast dated 04/25/2021 TECHNIQUE: CT of the abdomen and pelvis was performed. All CT scans are performed using dose optimization technique as appropriate and may include automated exposure control or mA/KV adjustment according to patient size. FINDINGS: Lower chest: No acute abnormality. Small hiatal hernia. Liver: Too small to characterize liver lesions which are likely benign. Biliary: No biliary ductal dilatation. Stomach: No significant focal abnormality. Duodenum: No significant focal abnormality. Pancreas: No significant abnormality. Spleen: No significant abnormality. Adrenal: No suspicious lesions. Kidney/ureter: No hydronephrosis. No renal calculi. Retroperitoneum: No retroperitoneal adenopathy. Vascular: No aneurysm. Bowel: No significant focal abnormality. Normal appendix. Peritoneum: No ascites or free air. Bladder: Grossly unremarkable. Reproductive: No adnexal masses. Bones: No acute fracture. Mild left acetabular degenerative changes. Degenerative changes are present at L5-S1. Other: n/a IMPRESSION: No acute intra-abdominal or pelvic finding. In some findings is
[2021-11-22 13:07] LABS: Potassium 4.2 mmol/L (3.5-5.1)
[2021-11-23 18:27] VITALS: TEMP 98.1
[2021-11-23 18:34] VITALS: BP 184/71; O2SAT 94
== END 2021-11-22 13:32 | disposition home or self-care (01) ==
LOC: ER 10:10
DX: R10.10 Upper abdominal pain, unspecified (principal); R11.0 Nausea; F17.210 Nicotine dependence, cigarettes, uncomplicated; I10 Essential (primary) hypertension
CPT/HCPCS: 85025; 80048; 36415; 74177; 96375; 96374; 99283; J2405; 74176

== ENCOUNTER 2021-12-09 19:51 | Emergency (ER) | payer OTHER ==
--- OUTSIDE RECORDS SUMMARY | 2021-12-09 19:59 | XMS REPORT | Continuity of Care Document ---
:1960 Author Organization [facility] t Address [address] [place] [address] Care Team Providers Name Role Phone Sharpless Primary Care Physician MATT SIMPSON Attending Clinician Unavailable MATT SIMPSON Attending Clinician Unavailable Doctor Unassigned, [place] Attending Clinician Unavailable WALLY KRISHNAMURTHY Attending Clinician Unavailable Natacha Brewster Attending Clinician Payers Payer Name Policy Type Policy Number Effective Date Expiration Date Sarina castelan [facility] [id number] 2017 00:00:00 PLUS Problems This patient has [...] s TRANSDER 5- ity of MAL 00:00: [place] [facility] ACETAMIN DRUG Active Other-Cmnt Univ ers OPHEN INGREDI - ity of 00:00: [place] [facility] Hmg-Coa Propensi Inactiv Reductas ty to e 2-28 e adverse 00:00: Inhibito reaction 00 rs to drug Nitrogly Propensi Active 2017-03 cerin ty to 1-08 adverse 00:00: reaction 00 to drug Social History Social Habit Start Date Stop Date Quantity Comments Source Alcohol intake 2016-05-01 2016-05-01 Current [facility] es 00:00:00 00:00:00 non-drinker of Medical nter alcohol (finding) Sex Assigned At [birth year] [facility] 00:00:00 00:00:00 [facility] Smoking Status Start Date Stop Date Source Current every day smoker 2016-05-01 00:00:00 [facility] Medications Ordered Filled Start Stop Current [...] 600 mg 5-30 tablet 00:00: 00 mirtazapine No 1mg 30 mg 5-30 tablet 00:00: 00 oxcarbazepi No 1mg ne 600 mg 5-30 tablet 00:00: 00 baclofen 10 No 1mg mg tablet 5-30 00:00: 00 levothyroxi No 1mcg ne 150 mcg 5-30 tablet 00:00: 00 hydroxyzine No 1mg pamoate 50 5-30 mg capsule 00:00: 00 PARoxetine Yes 40mg QD Take [address] (PAXIL) 40 2-23 [facility] tablet 10:23: nightly. [address] OXcarbazepi Yes 600mg Q.[id number] Take [address] ne 2-23 [id number] mg by [facility] (TRILEPTAL) 10:23: 3D mouth 3 Med ical 600 MG 59 [facility] tablet times daily. PARoxetine Yes 40mg QD Take [address] (PAXIL) 40 2-23 [facility] tablet 10:23: nightly. [address] OXcarbazepi Yes 600mg Q.25260905 Take [address] ne 2-23 [id number] [facility] (TRILEPTAL) 10:23: 3D mouth 3 Med ical 600 MG 59 (three[facility] Center tablet times daily. PARoxetine Yes 40mg QD Take [address] (PAXIL) 40 2-23 by [facility] tablet 10:23: nightly. [address] OXcarbazepi Yes 600mg Q.54843894 Take [address] ne 2-23 4248111065 [facility] (TRILEPTAL) 10:23: 3D mouth [...] Goal Plan of Care Note [code = 16138-8] Goal Plan of Care Note [code = 40041-5] Goal Plan of Care Note [code = 64152-6] Goal Plan of Care Note [code = 39519-5] Goal Plan of Care Note [code = 91759-7] Goal Plan of Care Note [code = 50428-2] Goal Plan of Care Note [code = 19986-3] Goal Plan of Care Note [code = 00446-0] Goal Plan of Care Note [code = 92802-8] Goal Plan of Care Note [code = 95557-8] Goal Plan of Care Note [code = 01722-9] Goal Plan of Care Note [code = 81634-8] Goal Plan of Care Note [code = 77413-6] Goal Plan of Care Note [code = 00486-6] Goal Plan of Care Note [code = 29403-0] Goal Plan of Care Note [code = 09504-2] Goal Plan of Care Note [code = 50544-4] Goal Plan of Care Note [code = 80248-8] Goal Plan of Care Note [code = 61115-4] Goal Plan of Care Note [code = 60971-3] Goal Plan of Care Note [code = 96377-3] Goal Plan of Care Note [code = 98963-1] Goal Plan of Care Note [code = 49625-8] Goal Plan of Care Note [code = 30185-2] Goal Plan of Care Note [code = 00561-0] Goal Plan of Care Note [code = 71863-5] Goal Plan of Care Note [code = 79319-3] Goal Plan of Care Note [code = 52830-8] Goal Plan of Care Note [code = 79577-2] Goal Plan of Care Note [code = 88860-8] Goal Plan of Care Note [code = 65203-5] Goal Plan of Care Note [code = 30771-2] Goal Plan of Care Note [code = 89379-8] Goal Plan of Care Note [code = 47177-7] Goal Plan of Care Note [code = 95951-2] Goal Plan of Care Note [code = 38388-1] Goal Plan of Care Note [code = 45992-1] Goal Plan of Care Note [code = 28670-6] Goal Plan of Care Note [code = 90070-9] Goal Plan of Care Note [code = 84533-2] Goal Plan of Care Note [code = 72310-1] Goal Plan of Care Note [code = 92541-8] Goal Plan of Care Note [code = 24462-7] Goal Plan of Care Note [code = 30240-9] Goal Plan of Care Note [code = 75005-0] Goal Plan of Care Note [code = 89671-8] Goal Plan of Care Note [code = 00258-0] Goal Plan of Care Note [code = 66093-9] Goal Plan of Care Note [code = 99603-4] Goal Plan of Care Note [code = 20361-3] Goal Plan of Care Note [code = 50338-4] Encounters Start End Encounter Admission Attending Care Care Encounter Source Date/Time Date/Time Type Type Clinicians Facility Department ID 2021-06-01 Outpatient [facility] [id number] [place] 01:36:[id number] [facility] 2021-09-17 2021-09-17 Outpatient nas4siko- [id number]-[id number] 00:00:00 00:00:00 Visit 935a-4f50 35a-4f50-b -u50t-w0z [id number]-[id number] 2020-08-03 2020-08-03 Outpatient [facility] [id number] Univers 10:00:00 10:00:00 MATT SIMPSON [facility] 2020-08-03 2020-08-03 Outpatient [facility] [id number] Univers 10:00:00 10:00:00 MATT SIMPSON [id number] [facility] 2020-07-25 2020-07-25 Orders Doctor FISH [id number] 00:00:00 00:00:00 Only Unassigned, BK 350.1.13.10 [facility] 4.2.7.2.686 [id number] 2019-09-26 2019-09-26 Outpatient Bertin KRISHNAMURTHY [facility] [id number] Univers 16:00:00 16:00:00 WALLY [id number] [facility] 2019-09-26 2019-09-26 [facility] [id number] Univers 16:00:00 16:00:00 WALLY yeager [facility] 2018-10-21 2018-10-21 Telephone [place], [facility] [id number] 00:00:00 00:00:00 Natacha Nguyen 350.1.13.10 [place] 4.2.7.2.686 [place] [id number] nal 204 Building Results Test Description Test Time Test Comments Results Result Comments Source TSH, THIRD GENERATION 2021-06-27 05:15:49 Test Item Value Reference Range Interpretation Comme nts TSH, THIRD GENERATION (test code = 2821) 2.080 UIU/ML 0.400-4.100 HEMOGLOBIN [id number] 03:46:00 Test Item Value Reference Range Interpretation Comments HEMOGLOBIN A1c (test 6.6 % 4.2-5.6 H AMERIC AN DIABETES code = 77030) ASSOCIATION IDELINES FOR HGB A1C: PREDIABETES/INC REASED [...] INDICATED, ALL TESTING PER FORMED ATCLINICAL PATH [facility] [place] [address] LABORATORY DIRE CTOR: DIANA RUSS M.D. CLIA NUMBER [id number] [facility] [place]. [id number] LIPID [id number] 02:59:52 Test Item Value Reference Range Interpretation [...] MOREINFORMATION , SEE CLIENT ANNOUNCE MENT AT [email or web address] RISK RATIO LDL/HDL 4.02 RATIO <3.22 H (test code = 2238) [id number] 00:00:00 Test Item Value Reference Range Interpretation Comments TSH, THIRD GENERATION (test code 2.080 UIU/ML = 2821) [id number] 00:00:00 Test Item Value Reference Range Interpretation Comments TSH, THIRD GENERATION (test code 2.080 UIU/ML = 2821) LIPID [id number] 00:00:00 Test Item Value Reference Range Interpretation Comments CHOLESTEROL (test code = 2210) 292 MG/DL TRIGLYCERIDES (test code = 2232) 184 MG/DL HDL CHOLESTEROL (test code = 2220) 51 MG/DL CALC LDL CHOL (test code = 2237) 205 MG/DL RISK RATIO LDL/HDL (test code = 4.02 RATIO 2238) HEMOGLOBIN [id number] 00:00:00 Test Item Value Reference Range Interpretation Comments HEMOGLOBIN A1c (test code = 67086) 6.6 % HEMOGLOBIN [id number] 00:00:00 Test Item Value Reference Range Interpretation Comments HEMOGLOBIN A1c (test code = 67628) 6.6 % HEMOGLOBIN [id number] 00:00:00 Test Item Value Reference Range Interpretation Comments HEMOGLOBIN A1c (test code = 77103) 6.8 % HEMOGLOBIN [id number] 00:00:00 Test Item Value Reference Range Interpretation Comments HEMOGLOBIN A1c (test code = 65570) 6.8 % LIPID [id number] 00:00:00 Test Item Value Reference Range Interpretation Comments CHOLESTEROL (test code = 2210) 303 MG/DL TRIGLYCERIDES (test code = 2232) 191 MG/DL HDL CHOLESTEROL (test code = 2220) 61 MG/DL CALC LDL CHOL (test code = 2237) 205 MG/DL RISK RATIO LDL/HDL (test code = 3.36 RATIO 2238) [id number] 00:00:00 Test Item Value Reference Range Interpretation Comments TSH, THIRD GENERATION (test code 0.769 UIU/ML = 2821) [id number] 00:00:00 Test Item Value Reference Range Interpretation Comments TSH, THIRD GENERATION (test code 0.769 UIU/ML = 2821) COMPREHENSIVE METABOLIC [id number] 00:00:00 Test Item Value Reference Range Interpretation Comments GLUCOSE (test code = 2217) 131 MG/DL BUN (test code = 2208) 13 MG/DL CREATININE (test code = 2214) 0.65 MG/DL eGFR AMER. (test code 113 ML/MIN/1.73 = 09537) eGFR NON- AMER. (test 97 ML/MIN/1.73 code = 56302) CALC BUN/CREAT (test code = 20 RATIO [...] (test code = 2219) 23 U/L HEMOGLOBIN [id number] 00:00:00 Test Item Value Reference Range Interpretation Comments HEMOGLOBIN A1c (test code = 29221) 6.6 % HEMOGLOBIN [id number] 00:00:00 Test Item Value Reference Range Interpretation Comments HEMOGLOBIN A1c (test code = 17969) 6.6 % LIPID [id number] 00:00:00 Test Item Value Reference Range Interpretation Comments CHOLESTEROL (test code = 2210) 261 MG/DL TRIGLYCERIDES (test code = 2232) 159 MG/DL HDL CHOLESTEROL (test code = 2220) 82 MG/DL CALC LDL CHOL (test code = 2237) 150 MG/DL RISK RATIO LDL/HDL (test code = 1.83 RATIO 2238) COMPREHENSIVE METABOLIC [id number] 00:00:00 Test Item Value Reference Range Interpretation Comments GLUCOSE (test code = 2217) 144 MG/DL BUN (test code = 2208) 15 MG/DL CREATININE (test code = 2214) 0.85 MG/DL eGFR AMER. (test code 87 ML/MIN/1.73 = 30049) eGFR NON- AMER. (test 75 ML/MIN/1.73 code = 43869) CALC BUN/CREAT (test code = 18 RATIO [...] THYROX. BIND. CAPAC. (test code 1.1 = 71633) T4 (THYROXINE) (test code = 4.3 UG/DL 2819) CORRECTED T4 (FTI) (test code = 3.9 UG/DL 2820) TSH, THIRD GENERATION (test 18.900 UIU/ML code = 2821) HEMOGLOBIN [id number] 00:00:00 Test Item Value Reference Range Interpretation Comments HEMOGLOBIN A1c (test code = 96546) 6.7 % HEMOGLOBIN [id number] 00:00:00 Test Item Value Reference Range Interpretation Comments HEMOGLOBIN A1c (test code = 95719) 6.7 % LIPID [id number] 00:00:00 Test Item Value Reference Range Interpretation Comments CHOLESTEROL (test code = 2210) 267 MG/DL TRIGLYCERIDES (test code = 2232) 137 MG/DL HDL CHOLESTEROL (test code = 2220) 48 MG/DL CALC LDL CHOL (test code = 2237) 192 MG/DL RISK RATIO LDL/HDL (test code = 4.00 RATIO 2238) COMPREHENSIVE METABOLIC [id number] 00:00:00 Test Item Value Reference Range Interpretation Comments GLUCOSE (test code = 2217) 155 MG/DL BUN (test code = 2208) 14 MG/DL CREATININE (test code = 2214) 0.52 MG/DL eGFR AMER. (test code 122 ML/MIN/1.73 = 33774) eGFR NON- AMER. (test 105 ML/MIN/1.73 code = 28639) CALC BUN/CREAT (test code = 27 RATIO [...] THYROX. BIND. CAPAC. (test code 1.0 = 25207) T4 (THYROXINE) (test code = 4.7 UG/DL 2819) CORRECTED T4 (FTI) (test code = 4.7 UG/DL 2820) TSH, THIRD GENERATION (test code 0.201 UIU/ML = 2821) SARS-CoV-2 (COVID-19) by RT-PCR (HIGH RISK)2019-09-18 00:00:00 Test Item Value Reference Range Interpretation Comments SARS-CoV-2 INTERPRETATION (test NEGATIVE code = 12746) SOURCE (test code = 03766) NOT SPECIFIED [id number] 00:00:00 Test Item Value Reference Range Interpretation Comments TSH, THIRD GENERATION (test code 2.490 UIU/ML = 2821) [id number] 00:00:00 Test Item Value Reference Range Interpretation Comments TSH, THIRD GENERATION (test code 2.490 UIU/ML = 2821) HEMOGLOBIN [id number] 00:00:00 Test Item Value Reference Range Interpretation Comments HEMOGLOBIN A1c (test code = 99461) 6.4 % HEMOGLOBIN [id number] 00:00:00 Test Item Value Reference Range Interpretation Comments HEMOGLOBIN A1c (test code = 66018) 6.4 % COMPREHENSIVE METABOLIC [id number] 00:00:00 Test Item Value Reference Range Interpretation Comments GLUCOSE (test code = 2217) 206 MG/DL BUN (test code = 2208) 23 MG/DL CREATININE (test code = 2214) 0.67 MG/DL eGFR AMER. (test code 112 ML/MIN/1.73 = 39315) eGFR NON- AMER. (test 97 ML/MIN/1.73 code = 15218) CALC BUN/CREAT (test code = 34 RATIO [...] = 2219) 25 U/L VAGINAL PATHOGENS DNA [id number] 00:00:00 Test Item Value Reference Range Interpretation Comments MARK SPECIES (test code = ) NEGATIVE G. VAGINALIS (test code = ) NEGATIVE T. VAGINALIS (test code = 49167) NEGATIVE HEMOGLOBIN A1c [ADDED]2018-12-01 00:00:00 Test Item Value Reference Range Interpretation Comments HEMOGLOBIN A1c (test code = 64838) 6.7 % HEMOGLOBIN A1c [ADDED]2018-12-01 00:00:00 Test Item Value Reference Range Interpretation Comments HEMOGLOBIN A1c (test code = 66182) 6.7 % COMPREHENSIVE METABOLIC PANEL [ADDED]2018-12-01 00:00:00 Test Item Value Reference Range Interpretation Comments GLUCOSE (test code = 2217) 136 MG/DL BUN (test code = 2208) 15 MG/DL CREATININE (test code = 2214) 0.64 MG/DL eGFR AMER. (test code 115 ML/MIN/1.73 = 51245) eGFR NON- AMER. (test 99 ML/MIN/1.73 code = 62071) CALC BUN/CREAT (test code = 23 RATIO [...] code 1.280 UIU/ML = 2821) CBC W/AUTO [id number] 00:00:00 Test Item Value Reference Range Interpretation [...] code = 1015) 346 K/UL CBC W/AUTO [id number] 00:00:00 Test Item Value Reference Range Interpretation [...] (test code = 1015) 346 K/UL HEMOGLOBIN [id number] 00:00:00 Test Item Value Reference Range Interpretation Comments HEMOGLOBIN A1c (test code = 76113) 5.9 % HEMOGLOBIN [id number] 00:00:00 Test Item Value Reference Range Interpretation Comments HEMOGLOBIN A1c (test code = 06295) 5.9 % LIPID [id number] 00:00:00 Test Item Value Reference Range Interpretation Comments CHOLESTEROL (test code = 2210) 318 MG/DL TRIGLYCERIDES (test code = 2232) 263 MG/DL HDL CHOLESTEROL (test code = 2220) 51 MG/DL CALC LDL CHOL (test code = 2237) 214 MG/DL RISK RATIO LDL/HDL (test code = 4.20 RATIO 2238) COMPREHENSIVE METABOLIC [id number] 00:00:00 Test Item Value Reference Range Interpretation Comments GLUCOSE (test code = 2217) 113 MG/DL BUN (test code = 2208) 18 MG/DL CREATININE (test code = 2214) 0.70 MG/DL eGFR AMER. (test code 111 ML/MIN/1.73 = 37056) eGFR NON- AMER. (test 96 ML/MIN/1.73 code = 99743) CALC BUN/CREAT (test code = 26 RATIO [...] ALT (test code = 2219) 31 U/L [id number] 00:00:00 Test Item Value Reference Range Interpretation Comments TSH, THIRD GENERATION (test code 2.520 UIU/ML = 2821) [id number] 00:00:00 Test Item Value Reference Range Interpretation Comments TSH, THIRD GENERATION (test code 2.520 UIU/ML = 2821) CULTURE, [id number] 00:00:00 Test Item Value Reference Range Interpretation Comments CULTURE, URINE (test SPECIMEN NUMBER: code = 34774) [id number] CULTURE, [id number] 00:00:00 Test Item Value Reference Range Interpretation Comments CULTURE, URINE (test SPECIMEN NUMBER: code = 62501) [id number] BASIC METABOLIC [id number] 00:00:00 Test Item Value Reference Range Interpretation Comments GLUCOSE (test code = 2217) 135 MG/DL BUN (test code = 2208) 25 MG/DL CREATININE (test code = 2214) 0.76 MG/DL eGFR AMER. (test code 101 ML/MIN/1.73 = 86393) eGFR NON- AMER. (test 87 ML/MIN/1.73 code = 68285) SODIUM (test code = 2231) 139 MEQ/L POTASSIUM (test code = 2228) 4.7 MEQ/L CHLORIDE (test code = 2215) 99 MEQ/L CARBON DIOXIDE (test code = 26 MEQ/L 2205) CALCIUM (test code = 2209) 9.4 MG/DL LIPID [id number] 00:00:00 Test Item Value Reference Range Interpretation Comments CHOLESTEROL (test code = 2210) 262 MG/DL TRIGLYCERIDES (test code = 2232) 300 MG/DL HDL CHOLESTEROL (test code = 2220) 36 MG/DL CALC LDL CHOL (test code = 2237) 166 MG/DL RISK RATIO LDL/HDL (test code = 4.61 RATIO 2238) HEMOGLOBIN [id number] 00:00:00 Test Item Value Reference Range Interpretation Comments HEMOGLOBIN A1c (test code = 85971) 6.2 % HEMOGLOBIN [id number] 00:00:00 Test Item Value Reference Range Interpretation Comments HEMOGLOBIN A1c (test code = 31323) 6.2 % [id number] 00:00:00 Test Item Value Reference Range Interpretation Comments TSH, THIRD GENERATION (test code 0.988 UIU/ML = 2821) [id number] 00:00:00 Test Item Value Reference Range Interpretation Comments TSH, THIRD GENERATION (test code 0.988 UIU/ML = 2821) COMPREHENSIVE METABOLIC [id number] 00:00:00 Test Item Value Reference Range Interpretation Comments GLUCOSE (test code = 2217) 109 MG/DL BUN (test code = 2208) 25 MG/DL CREATININE (test code = 2214) 0.78 MG/DL eGFR AMER. (test code 98 ML/MIN/1.73 = 00911) eGFR NON- AMER. (test 84 ML/MIN/1.73 code = 42823) CALC BUN/CREAT (test code = 32 RATIO [...] (test code = 2219) 25 U/L LIPID [id number] 00:00:00 Test Item Value Reference Range Interpretation Comments CHOLESTEROL (test code = 2210) 295 MG/DL TRIGLYCERIDES (test code = 2232) 218 MG/DL HDL CHOLESTEROL (test code = 2220) 46 MG/DL CALC LDL CHOL (test code = 2237) 205 MG/DL RISK RATIO LDL/HDL (test code = 4.47 RATIO 2238) HEMOGLOBIN [id number] 00:00:00 Test Item Value Reference Range Interpretation Comments HEMOGLOBIN A1c (test code = 21626) 7.0 % HEMOGLOBIN [id number] 00:00:00 Test Item Value Reference Range Interpretation Comments HEMOGLOBIN A1c (test code = 43332) 7.0 % [id number] 00:00:00 Test Item Value Reference Range Interpretation Comments TSH, THIRD GENERATION (test code 0.565 UIU/ML = 2821) [id number] 00:00:00 Test Item Value Reference Range Interpretation Comments TSH, THIRD GENERATION (test code 0.565 UIU/ML = 2821) [id number] 00:00:00 Test Item Value Reference Range Interpretation Comments TSH, THIRD GENERATION (test code 0.379 UIU/ML = 2821) [id number] 00:00:00 Test Item Value Reference Range Interpretation Comments TSH, THIRD GENERATION (test code 0.379 UIU/ML = 2821) CULTURE, [id number] 00:00:00 Test Item Value Reference Range Interpretation Comments CULTURE, URINE (test SPECIMEN NUMBER: code = 86402) [id number] COMPREHENSIVE METABOLIC [id number] 00:00:00 Test Item Value Reference Range Interpretation Comments GLUCOSE (test code = 2217) 128 MG/DL BUN (test code = 2208) 26 MG/DL CREATININE (test code = 2214) 0.92 MG/DL eGFR AMER. (test code 81 ML/MIN/1.73 = 64869) eGFR NON- AMER. (test 70 ML/MIN/1.73 code = 73112) CALC BUN/CREAT (test code = 28 RATIO [...] code = 2219) 29 U/L ACUTE HEPATITIS [id number] 00:00:00 Test Item Value Reference Range Interpretation Comments HEPATITIS A IgM (test code = NON-REACTIVE 90113) HEPATITIS B CORE IgM (test code NON-REACTIVE = 4644) HEPATITIS B SURF AG (test code = NON-REACTIVE 4171) HEPATITIS C ANTIBODY (test code NON-REACTIVE = 4691) INTERPRETATION HEPATITIS A: (NOTE) (test code = 2552) INTERPRETATION HEPATITIS B: (NOTE) (test code = 54688) INTERPRETATION HEPATITIS C: (NOTE) (test code = 51039) [id number] 00:00:00 Test Item Value Reference Range Interpretation Comments AMYLASE (test code = 2205) 32 U/L [id number] 00:00:00 Test Item Value Reference Range Interpretation Comments LIPASE (test code = 2057) 22 U/L [id number] 00:00:00 Test Item Value Reference Range Interpretation Comments LIPASE (test code = 205) 22 U/L [id number] 00:00:00 Test Item Value Reference Range Interpretation Comments TSH, THIRD GENERATION (test code 4.890 UIU/ML = 2821) [id number] 00:00:00 Test Item Value Reference Range Interpretation Comments TSH, THIRD GENERATION (test code 4.890 UIU/ML = 2821) COMPREHENSIVE METABOLIC [id number] 00:00:00 Test Item Value Reference Range Interpretation Comments GLUCOSE (test code = 2217) 121 MG/DL BUN (test code = 2208) 40 MG/DL CREATININE (test code = 2214) 1.48 MG/DL eGFR AMER. (test code 45 ML/MIN/1.73 = 26079) eGFR NON- AMER. (test 39 ML/MIN/1.73 code = 75171) CALC BUN/CREAT (test code = 27 RATIO [...] (test code = 2219) 20 U/L LIPID [id number] 00:00:00 Test Item Value Reference Range Interpretation Comments CHOLESTEROL (test code = 2210) 261 MG/DL TRIGLYCERIDES (test code = 2232) 165 MG/DL HDL CHOLESTEROL (test code = 2220) 58 MG/DL CALC LDL CHOL (test code = 2237) 170 MG/DL RISK RATIO LDL/HDL (test code = 2.93 RATIO 2238) CBC W/AUTO [id number] 00:00:00 Test Item Value Reference Range Interpretation [...] code = 1015) 378 K/UL CBC W/AUTO [id number] 00:00:00 Test Item Value Reference Range Interpretation [...] (test code = 1015) 378 K/UL HEMOGLOBIN [id number] 00:00:00 Test Item Value Reference Range Interpretation Comments HEMOGLOBIN A1c (test code = 31092) 6.4 % HEMOGLOBIN [id number] 00:00:00 Test Item Value Reference Range Interpretation Comments HEMOGLOBIN A1c (test code = 37792) 6.4 % [id number] 00:00:00 Test Item Value Reference Range Interpretation Comments TSH (test code = 2821) 5.290 UIU/ML [id number] 00:00:00 Test Item Value Reference Range Interpretation Comments TSH (test code = 2821) 5.290 UIU/ML THYROID II PROFILE (T3U, T4, T7, TSH)[id number] 00:00:00 Test Item Value Reference Range Interpretation Comments T3 UPTAKE (test code = 2817) 32.3 % T4 (THYROXINE) (test code = 5.2 UG/DL 281) CALCULATED T7 (FTI) (test code = 1.68 2820) TSH (test code = 2821) 1.030 UIU/ML COMPREHENSIVE METABOLIC [id number] 00:00:00 Test Item Value Reference Range Interpretation Comments GLUCOSE (test code = 2217) 106 MG/DL BUN (test code = 2208) 23 MG/DL CREATININE (test code = 2214) 0.66 MG/DL eGFR AMER. (test code 114 ML/MIN/1.73 = 27715) eGFR NON- AMER. (test 99 ML/MIN/1.73 code = 52478) CALC BUN/CREAT (test code = 35 RATIO [...] code = 2821) 0.335 UIU/ML COMPREHENSIVE METABOLIC [id number] 00:00:00 Test Item Value Reference Range Interpretation Comments GLUCOSE (test code = 2217) 103 MG/DL BUN (test code = 2208) 15 MG/DL CREATININE (test code = 2214) 0.77 MG/DL eGFR AMER. (test code 101 ML/MIN/1.73 = 77517) eGFR NON- AMER. (test 87 ML/MIN/1.73 code = 93326) CALC BUN/CREAT (test code = 19 RATIO [...] (test code = 2821) 0.424 UIU/ML CULTURE, [id number] 00:00:00 Test Item Value Reference Range Interpretation Comments CULTURE, URINE (test SPECIMEN NUMBER: code = 90481) [id number] CULTURE, [id number] 00:00:00 Test Item Value Reference Range Interpretation Comments CULTURE, URINE (test SPECIMEN NUMBER: code = 68445) [id number]
[2021-12-09 21:28] LABS: Absolute Lymphocytes (CBC) 2.4 K/uL (0.7-4.9); Hematocrit 39.3 % (36.0-45.0); Lymphocytes % 37.9 % (15.3-44.8); MCV 87.5 fL (80-100); MPV 6.4 fL (7.6-11.3); RBC Red Blood Cell Count 4.49 M/uL (3.86-4.86)
[2021-12-09 21:35] LABS: Protime INR 1.13
[2021-12-09] MEDS ORDERED: ONDANSETRON 4 MG (ODT) TAB ONE (21:39)
[2021-12-09 21:44] LABS: SARS-CoV-2 Antigen Rapid Res Negative (Negative)
[2021-12-09 21:50] LABS: Albumin 3.4 g/dL (3.4-5.0); Bilirubin Direct 0.1 mg/dL (0-0.2); Bilirubin Total 0.2 mg/dL (0.2-1.0); Magnesium 1.8 mg/dL (1.8-2.4); Potassium 3.9 mmol/L (3.5-5.1); Protein, Total 7.9 g/dL (6.4-8.2); Troponin High Sensitivity 6.3 pg/mL (<58.9)
--- NOTE | 2021-12-09 21:51 | RAD REPORT ---
EXAM DESCRIPTION: RAD - Chest Single View - 12/09/2021 9:27 pm CLINICAL HISTORY: COUGH COMPARISON: Portable 09/29/2021 TECHNIQUE: AP portable chest image was obtained 12/09/2021 9:27 pm . FINDINGS: No peripheral mass or consolidation. Prominent interstitial pattern is present matching pr ior imaging. No significant failure or volume overload. Heart and vasculature are normal. No measurab le pleural effusion and no pneumothorax. No acute bony abnormality seen. No acute aortic findings rufino pected. IMPRESSION: No acute cardiopulmonary process. No significant change from comparison study.
--- NOTE | 2021-12-09 21:56 | ER ---
Nurse's Notes [facility] Name: Jaimie Amanda Age: 60 yrs Sex: Female : 1960 Arrival Date: 12/09/2021 Time: 19:54 Bed 2 Private MD: Diagnosis: Hypo-osmolality and hyponatremia;Vomiting;Diarrhea, unspecified;Headache Presentation: 12/09 20:02 Chief complaint: Patient states: "I feel really sick. my whole body hurts, and I've had as6 a real upset stomach". Coronavirus screen: Client presents with at least one sign or symptom that may indicate coronavirus-19. Ebola Screen: No symptoms or risks identified at this time. Initial Sepsis Screen: Does the patient meet any 2 criteria? No. Patient's initial sepsis screen is negative. Does the patient have a suspected source of infection? No. Patient's initial sepsis screen is negative. Risk Assessment: Do you want to hurt yourself or someone else? Patient reports no desire to harm self or others. Onset of symptoms was December 07, 2021. 20:02 Method Of Arrival: Ambulatory as6 20:02 Acuity: ZHEN 3 as6 Triage Assessment: 20:06 General: Appears uncomfortable, Behavior is calm, cooperative. Pain: Complains of pain as6 in generalized Pain currently is 8 out of 10 on a pain scale. Quality of pain is described as aching. GI: Reports nausea, vomiting. Historical: - Allergies: 20:05 No Known Allergies; as6 - Home Meds: 20:05 "thyroid" [Active]; Prilosec Oral [Active]; as6 - PMHx: 20:05 Anxiety; depressive disorder; diabetes mellitus; Hypertensive disorder; Hypothyroidism; as6 - PSHx: 20:05 Thyroidectomy; as6 - Immunization history:: Client reports receiving the 2nd dose of the Covid vaccine, moderna. - Social history:: Smoking status: Patient reports the use of cigarette tobacco products, smokes one-half pack cigarettes per day. - Family history:: not pertinent. Screenin:19 Abuse screen: Denies threats or abuse. Denies injuries from another. Nutritional ha1 screening: No deficits noted. Tuberculosis screening: No symptoms or risk factors identified. Fall Risk None identified. Assessment: 20:16 General: Behavior is calm, cooperative. Neuro: Level of Consciousness is awake, alert, ha1 Oriented to person, place, time, situation. Cardiovascular: Capillary refill < 3 seconds Patient's skin is warm and dry. Respiratory: Airway is patent Trachea midline Respiratory effort is even, unlabored, Respiratory pattern is regular, symmetrical. GI: Abdomen is flat, non-distended, Reports nausea, vomiting, body aches. : No signs and/or symptoms were reported regarding the genitourinary system. EENT: No signs and/or symptoms were reported regarding the EENT system. Musculoskeletal: Circulation, motion, and sensation intact. Range of motion: intact in all extremities. 21:33 Reassessment: Pt refusing further IV attempts. Requesting to be given nausea jb4 medications and to be sent home. Provider notified. Vital Signs: 20:02 BP 187 / 86; Pulse 89; Resp 20 S; Temp 98.2(O); Pulse Ox 97% on R/A; Weight 70.31 kg as6 (R); Height 5 ft. 7 in. (170.18 cm) (R); Pain 8/10; 20:18 BP 152 / 67; Pulse 81; Resp 20; Pulse Ox 98% on R/A; ha1 20:02 Body Mass Index 24.28 (70.31 kg, 170.18 cm) as6 ED Course: 19:54 Patient arrived in ED. dt4 20:05 Triage completed. as6 20:06 Arm band placed on. as6 20:18 Diego Ramirez MD is Attending Physician. hannah 20:19 Patient has correct armband on for positive identification. Bed in low position. Call ha1 light in reach. Side rails up X 1. 21:42 Troponin HS Sent. kd3 21:42 PT-INR Sent. kd3 21:42 NT PRO-BNP Sent. kd3 21:42 Magnesium Sent. kd3 21:42 LFT's Sent. kd3 21:42 CBC with Diff Sent. kd3 21:42 Basic Metabolic Panel Sent. kd3 21:42 Flu Sent. kd3 21:42 Lipase Sent. kd3 Administered Medications: 21:40 Not Given (Patient Refused): Zofran (Ondansetron) 4 mg IVP once; over 2 minutes kd3 21:40 Not Given (Patient Refused): Pepcid (famotidine) 20 mg IVP once; dilute with 10 mL 0.9% kd3 NaCl; give over 2 minutes 21:41 Drug: Ondansetron 4 mg Route: PO; kd3 Outcome: 21:56 Patient left the ED. 22:05 Patient left the ED. kl Signatures: Namrata Otero RN Diego Burrell MD MD cha Bryson, James RN RN jb4 Antony Mccallum RN RN as6 Lidia Guan RN RN kd3 Christal Flores RN RN gil1 Veronique Hassan 4
--- NOTE | 2021-12-09 21:57 | EDPHYS ---
Physician Documentation [facility] Name: Jaimie Amanda Age: 60 yrs Sex: Female : 1960 Arrival Date: 12/09/2021 Time: 19:54 Bed 2 Private MD: [place] Physician Diego Ramirez HPI: 12/09 20:37 This 60 yrs old Female presents to ER via Ambulatory with complaints of hannah Vomiting, BODY ACHES. 20:37 The patient presents to the emergency department with nausea, vomiting, diarrhea, that hannah is intermittent. Onset: The symptoms/episode began/occurred 2 day(s) ago. Possible causes: unknown. The symptoms are aggravated by nothing. movement, The symptoms are alleviated by nothing. Associated signs and symptoms: Pertinent positives: diarrhea, nausea, vomiting. Severity of symptoms: At their worst the symptoms were mild in the emergency department the symptoms are unchanged. The patient has not experienced similar symptoms in the past. Historical: - Allergies: 20:05 No Known Allergies; as6 - Home Meds: 20:05 "thyroid" [Active]; Prilosec Oral [Active]; as6 - PMHx: 20:05 Anxiety; depressive disorder; diabetes mellitus; Hypertensive disorder; Hypothyroidism; as6 - PSHx: 20:05 Thyroidectomy; as6 - Immunization history:: Client reports receiving the 2nd dose of the Covid vaccine, moderna. - Social history:: Smoking status: Patient reports the use of cigarette tobacco products, smokes one-half pack cigarettes per day. - Family history:: not pertinent. ROS: 20:37 Constitutional: Negative for fever, chills, and weight loss, Eyes: Negative for injury, hannah pain, redness, and discharge, ENT: Negative for injury, pain, and discharge, Neck: Negative for injury, pain, and swelling, Cardiovascular: Negative for chest pain, palpitations, and edema, Respiratory: Negative for shortness of breath, cough, wheezing, and pleuritic chest pain, Back: Negative for injury and pain, : Negative for injury, bleeding, discharge, and swelling, MS/Extremity: Negative for injury and deformity, Skin: Negative for injury, rash, and discoloration, Neuro: Negative for headache, weakness, numbness, tingling, and seizure, Psych: Negative for depression, anxiety, suicide ideation, homicidal ideation, and hallucinations, Allergy/Immunology: Negative for hives, rash, and allergies, Endocrine: Negative for neck swelling, polydipsia, polyuria, polyphagia, and marked weight changes. 20:37 Abdomen/GI: Positive for abdominal pain, nausea and vomiting, diarrhea. 20:37 Neuro: Positive for weakness. Exam: 20:37 Constitutional: This is a well developed, well nourished patient who is awake, alert, hannah and in no acute distress. Head/Face: Normocephalic, atraumatic. Eyes: Pupils equal round and reactive to light, extra-ocular motions intact. Lids and lashes normal. Conjunctiva and sclera are non-icteric and not injected. Cornea within normal limits. Periorbital areas with no swelling, redness, or edema. ENT: Nares patent. No nasal discharge, no septal abnormalities noted. Tympanic membranes are normal and external auditory canals are clear. Oropharynx with no redness, swelling, or masses, exudates, or evidence of obstruction, uvula midline. Mucous membranes moist. Neck: Trachea midline, no thyromegaly or masses palpated, and no cervical lymphadenopathy. Supple, full range of motion without nuchal rigidity, or vertebral point tenderness. No Meningismus. Chest/axilla: Normal chest wall appearance and motion. Nontender with no deformity. No lesions are appreciated. Cardiovascular: Regular rate and rhythm with a normal S1 and S2. No gallops, murmurs, or rubs. Normal PMI, no JVD. No pulse deficits. Respiratory: Lungs have equal breath sounds bilaterally, clear to auscultation and percussion. No rales, rhonchi or wheezes noted. No increased work of breathing, no retractions or nasal flaring. Abdomen/GI: Soft, non-tender, with normal bowel sounds. No distension or tympany. No guarding or rebound. No evidence of tenderness throughout. Back: No spinal tenderness. No costovertebral tenderness. Full range of motion. Female : Normal external genitalia. Skin: Warm, dry with normal turgor. Normal color with no rashes, no lesions, and no evidence of cellulitis. MS/ Extremity: Pulses equal, no cyanosis. Neurovascular intact. Full, normal range of motion. Neuro: Awake and alert, GCS 15, oriented to person, place, time, and situation. Cranial nerves II-XII grossly intact. Motor strength 5/5 in all extremities. Sensory grossly intact. Cerebellar exam normal. Normal gait. Psych: Awake, alert, with orientation to person, place and time. Behavior, mood, and affect are within normal limits. 21:28 ECG was reviewed by the Attending Physician. [facility] 21:30 Neck: External neck: is normal, ROM/movement: is normal, no acute changes, pain, is not hannah appreciated, limited range of motion, is not appreciated, Meningeal signs: are not present, Kernig's sign is negative, Brudzinski's sign is negative, nuchal rigidity, is not appreciated. Vital Signs: 20:02 BP 187 / 86; Pulse 89; Resp 20 S; Temp 98.2(O); Pulse Ox 97% on R/A; Weight 70.31 kg as6 (R); Height 5 ft. 7 in. (170.18 cm) (R); Pain 8/10; 20:18 BP 152 / 67; Pulse 81; Resp 20; Pulse Ox 98% on R/A; ha1 20:02 Body Mass Index 24.28 (70.31 kg, 170.18 cm) as6 MDM: 20:18 Patient medically screened. hannah 20:45 Differential diagnosis: Nonspecific abd pain, gastritis, pancreatitis. Data reviewed: [facility] vital signs, nurses notes, lab test result(s), EKG, radiologic studies, plain films. Data interpreted: monitoring manager: rate is 81 beats/min, rhythm is regular, Pulse oximetry: on room air is 98 %. Test interpretation: by ED physician or midlevel provider: ECG, plain radiologic studies. Counseling: I had a detailed discussion with the patient and/or guardian regarding: the historical points, exam findings, and any diagnostic results supporting the discharge/admit diagnosis, lab results, radiology results, the need for outpatient follow up, a family practitioner, an tapper hand. 12/09 20:26 Order name: Basic Metabolic Panel [facility] 12/09 20: Order name: CBC with Diff [facility] 12/09 20:26 Order name: LFT's [facility] 12/09 20:26 Order name: Magnesium [facility] 12/09 20:26 Order name: NT PRO-BNP [facility] 12/09 20:26 Order name: PT-INR [facility] 12/09 20:26 Order name: Troponin HS [facility] 12/09 20:26 Order name: Lipase [facility] 12/09 20:26 Order name: Flu [facility] 12/09 20:26 Order name: SARS-COV-2 RT PCR (Document "Date of Onset" if Symptomatic) [facility] 12/09 21:31 Order name: CBC with Automated Diff; Complete Time: 21:53 EDMS 12/09 21:35 Order name: Protime (+INR); Complete Time: 21:53 EDMS 12/09 21:44 Order name: SARS-COV-2 Antigen Rapid; Complete Time: 21:53 EDMS 12/09 20:26 Order name: XRAY Chest (1 view) [facility] 12/09 21:30 Order name: CT Head Brain wo Cont [facility] 12/09 21:50 Order name: Basic Metabolic Panel; Complete Time: 21:53 EDMS 12/09 21:50 Order name: Liver (Hepatic) Function; Complete Time: 21:53 EDMS 12/09 21:50 Order name: Troponin High Sensitivity; Complete Time: 21:53 EDMS 12/09 21:50 Order name: NT PRO-BNP; Complete Time: 21:53 EDMS 12/09 21:50 Order name: Magnesium; Complete Time: 21:53 EDMS 12/09 21:50 Order name: Lipase; Complete Time: 21:53 EDMS 12/09 21:52 Order name: RAD; Complete Time: 21:53 EDMS 12/09 21:58 Order name: Influenza Screen (A ; Complete Time: 21:58 EDMS 12/09 21:58 Order name: Urine Osmolality [facility] 12/09 21:58 Order name: Urine Sodium Random [facility] 12/09 21:58 Order name: Osmolality, Serum [facility] 12/09 20:26 Order name: EKG; Complete Time: 20:27 [facility] 12/09 20:26 Order name: Cardiac monitoring; Complete Time: 21:02 [facility] 12/09 20:26 Order name: EKG - Nurse/Tech; Complete Time: 20:59 [facility] 12/09 20:26 Order name: Labs collected and sent; Complete Time: 21:42 hannah EC:28 Rate is 67 beats/min. Rhythm is regular. QRS Allison is Normal. [place] interval is normal. QRS hannah interval is normal. QT interval is normal. No Q waves. T waves are Normal. No ST changes noted. Clinical impression: Normal ECG and No evidence of ischemia. Interpreted by me. Reviewed by me. Administered Medications: 21:40 Not Given (Patient Refused): Zofran (Ondansetron) 4 mg IVP once; over 2 minutes kd3 21:40 Not Given (Patient Refused): Pepcid (famotidine) 20 mg IVP once; dilute with 10 mL 0.9% kd3 NaCl; give over 2 minutes 21:41 Drug: Ondansetron 4 mg Route: PO; kd3 Disposition Summary: 12/09/21 21:56 Left Against Medical Advice Location: Home hannah Problem: new hannah Symptoms: have improved hannah Condition: Fair hannah Diagnosis - Hypo-osmolality and hyponatremia hannah - Vomiting hannah - Diarrhea, unspecified hannah - Headache hannah Followup: hannah - With: Private Physician - When: Upon discharge from the Emergency Department - Reason: Recheck today's complaints, Continuance of care, Re-evaluation by your physician Discharge Instructions: - Discharge Summary Sheet hannah - Food Choices to Help Relieve Diarrhea, Adult hannah - Diarrhea, Adult hannah - Weakness hannah - Diarrhea, Adult, [id number] hannah - General Headache Without Cause hannah - Weakness, [id number] hannah - Vomiting, Adult hannah Prescriptions: - Zofran 4 mg Oral Tablet - take 1 tablet by ORAL route every 12 hours As needed; 20 tablet; Refills: 0, hannah Product Selection Permitted Signatures: Dispatcher [employer] EDMS Diego Ramirez MD MD cha Slawson, Ashby RN RN as6 Lidia Guan RN RN kd3 Corrections: (The following items were deleted from the chart) 21:41 20:26 IV Saline Lock ordered. [facility] kd3 21:41 20:26 Urine Dipstick-Ancillary ordered. [facility] kd3 21:42 20:26 Oxygen Per Protocol ordered. [facility] kd3 21:42 20:26 O2 Sat Monitoring ordered. [facility] kd3
[2021-12-09 22:29] VITALS: TEMP 98.2
[2021-12-09 22:30] VITALS: BP 152/67; O2SAT 98
--- NOTE | 2021-12-11 07:54 | EKG ---
Test Date: 2021-12-09 Test Time: 20:55:18 Sketcher: VENTURA MEASUREMENT RESULTS: Intervals: Rate: 67 AR: 156 QRSD: 86 QT: 414 QTc: 437 [place]: P: 79 AR: 156 QRS: 86 T: 84 INTERPRETIVE STATEMENTS: Normal sinus rhythm Normal ECG Compared to ECG 10/04/2021 07:42:43 No significant changes Electronically Signed On 12-11-21 07:48:34 CDT by Daniel Cespedes
== END 2021-12-09 22:05 | disposition left against medical advice (07) ==
LOC: ER 19:51
DX: E87.1 Hypo-osmolality and hyponatremia (principal); R11.2 Nausea with vomiting, unspecified; R19.7 Diarrhea, unspecified; R51.9 Headache, unspecified; E03.9 Hypothyroidism, unspecified; E11.9 Type 2 diabetes mellitus without complications; F41.8 Other specified anxiety disorders; F17.210 Nicotine dependence, cigarettes, uncomplicated; Z20.822 Contact with and (suspected) exposure to COVID-19
CPT/HCPCS: 93005; 85025; 80048; 36415; 83735; 85610; 80076; 84484; 83690; 83880; 87804 ×2; 71045; 99283; 87811; Q0162

== ENCOUNTER 2021-12-25 18:20 | Emergency (ER) | payer OTHER ==
--- OUTSIDE RECORDS SUMMARY | 2021-12-25 18:29 | XMS REPORT | Continuity of Care Document ---
:1960 Author Organization [facility] t Address [address] [place] [address] Care Team Providers Name Role Phone Sharpless Primary Care Physician MATT SIMPSON Attending Clinician Unavailable MATT SIMPSON Attending Clinician Unavailable Doctor Unassigned, [place] Attending Clinician Unavailable WALLY KRISHNAMURTHY Attending Clinician Unavailable Gramm Natacha CLARK Attending Clinician Payers Payer Name Policy Type Policy Number Effective Date Expiration Date Sarina castelan [facility] [id number] 2017 00:00:00 PLUS Problems This patient has [...] s TRANSDER 5- ity of MAL 00:00: [place] [facility] ACETAMIN DRUG Active [facility] ers OPHEN INGREDI 07-27 ity of 00:00: [place] [address] [facility] Hmg-Coa Propensi Inactiv Reductas ty to e 2-28 e adverse 00:00: Inhibito reaction 00 rs to drug Nitrogly Propensi Active 2017-03 cerin ty to 1-08 adverse 00:00: reaction 00 to drug Social History Social Habit Start Date Stop Date Quantity Comments Source Alcohol intake 2016-05-01 2016-05-01 Current [facility] [place] [facility] 00:00:00 00:00:00 non-drinker of Medical nter alcohol (finding) Sex Assigned At [birth year] [facility] 00:00:00 00:00:00 [facility] Smoking Status Start Date Stop Date Source Current every day smoker 2016-05-01 00:00:00 [facility] Medications Ordered Filled Start Stop Current Ordering Indication Dosage Frequency Signature Comments Components Source Medication Medication Date Date Medication? Clinician (SIG) Name Name CLONAZEPAM 2021-0 No 1 MG TABS 11-19 00:00: 00 TAKE 1 2021-0 No TABLET BY 11-08 MOUTH EVERY 00:00: 12 HOURS 00 FOR 10 DAYS CLONAZEPAM 2021-0 No 2 MG TABS 11-08 00:00: 00 DICLOFENAC 2-[address] 11-08 Tablets 00:00: 00 TAKE 2 2-0 No 750 TABLETS BY 11-08 MOUTH THREE 00:00: TIMES DAILY 00 NEEDED losartan 2-0 No 1mg 100 7-12 mg-hydrochl 00:00: orothiazide 00 25 mg tablet carvedilol 2022-0 No 1mg 12.5 mg 7-12 tablet 00:00: 00 losartan 2022-0 No 1mg 100 7-12 mg-hydrochl 00:00: orothiazide 00 25 mg tablet carvedilol 2-0 No 1mg 12.5 mg 7-12 tablet 00:00: 00 clonidine 2022-0 No 1mg HCl 0.3 mg 5-26 tablet 00:00: 00 Dose 2022-0 No Unknown 5-26 00:00: 00 levothyroxi 2022-0 No 1mcg ne 137 mcg 5-23 tablet 00:00: 00 levothyroxi 2022-0 No 1mcg ne 137 mcg 5-23 tablet 00:00: 00 metformin 2022-0 No 1mg ER 500 mg 4-24 tablet,exte 00:00: nded 00 release 24 hr metformin 2022-0 No 1mg ER 500 mg 4-24 tablet,exte 00:00: nded 00 release 24 hr fenofibrate 2022-0 No 1mg 160 mg 4-21 tablet 00:00: 00 fenofibrate 2022-0 No 1mg 160 mg 4-21 tablet 00:00: 00 clonidine 2022-0 No 1mg HCl 0.3 mg 4-20 tablet 00:00: 00 clonidine 2022-0 No 1mg [...] Dose 2022-0 No Unknown 4-06 00:00: 00 levothyroxi 2022-0 No 1mcg ne [...] 00:00: orothiazide 00 25 mg tablet levothyroxi 2022-0 No 1mcg ne 137 mcg 1-28 tablet 00:00: 00 losartan 2022-0 No 1mg 100 1-28 mg-hydrochl 00:00: orothiazide 00 25 mg tablet levothyroxi 2-0 No 1mcg ne 137 mcg 1-28 tablet 00:00: 00 Dose 2021-1 No Unknown 2-08 00:00: 00 Dose 1-1 No Unknown 2-08 00:00: 00 losartan 1-1 No 1mg 100 0-19 mg-hydrochl 00:00: orothiazide 00 25 mg tablet Dose 2021-1 No Unknown 0-19 00:00: 00 levothyroxi 2021-1 No 1mcg ne 137 mcg 0-19 tablet 00:00: 00 losartan 1-1 No 1mg 100 0-19 mg-hydrochl 00:00: orothiazide 00 25 mg tablet Dose 1-1 No Unknown 0-19 00:00: 00 levothyroxi 2021-1 No 1mcg ne 137 mcg 0-19 tablet 00:00: 00 levothyroxi 2021-0 No 1mcg ne 137 mcg 9-17 tablet 00:00: 00 levothyroxi 2021-0 No 1mcg ne 137 mcg 9-17 tablet 00:00: 00 levothyroxi 2021-0 No 1mcg ne 137 mcg 8-27 tablet 00:00: 00 levothyroxi 2021-0 No 1mcg ne 137 mcg 8-27 tablet 00:00: 00 liothyronin 2021-0 No 1mcg e 5 mcg 8-26 tablet 00:00: 00 liothyronin 2021-0 No 1mcg e 5 mcg 8-26 tablet 00:00: 00 losartan 2021-0 No 1mg 100 8-19 mg-hydrochl 00:00: orothiazide 00 25 mg tablet losartan 2021-0 No 1mg 100 8-19 mg-hydrochl 00:00: orothiazide 00 25 mg tablet cetirizine 2021-0 No 1mg 10 mg 8-02 tablet 00:00: 00 fenofibrate 2021-0 No 1mg 160 mg 8-02 tablet 00:00: 00 fluticasone 2021-0 No 2mcg/ac propionate 8-02 tuation 50 00:00: mcg/actuati 00 on nasal spray,suspe nsion Tessalon 1-0 No 1mg Perles 100 8-02 mg capsule 00:00: 00 cetirizine 2021-0 No 1mg 10 mg 8-02 tablet 00:00: 00 fenofibrate 2021-0 No 1mg 160 mg 8-02 tablet 00:00: 00 fluticasone 2021-0 No 2mcg/ac propionate 8-02 tuation 50 00:00: mcg/actuati 00 on nasal spray,suspe nsion Tessalon 1-0 No 1mg Perles 100 8-02 mg capsule 00:00: 00 ezetimibe 2021-0 No 1mg 10 mg 7-27 tablet 00:00: 00 losartan 2021-0 No 1mg 100 7-27 mg-hydrochl 00:00: orothiazide 00 25 mg tablet clonidine 2021-0 No 1mg HCl 0.3 mg 7-27 tablet 00:00: 00 liothyronin 2021-0 No 1mcg e 5 mcg 7-27 tablet 00:00: 00 ezetimibe 2021-0 No 1mg 10 mg 7-27 tablet 00:00: 00 losartan 2021-0 No 1mg 100 7-27 mg-hydrochl 00:00: orothiazide 00 25 mg tablet clonidine 2021-0 No 1mg HCl 0.3 mg 7-27 tablet 00:00: 00 liothyronin 2021-0 No 1mcg e 5 mcg 7-27 tablet 00:00: 00 levothyroxi 2021-0 No 1mcg ne 137 mcg 7-19 tablet 00:00: 00 levothyroxi 2021-0 No 1mcg ne 137 mcg 7-19 tablet 00:00: 00 clonidine 2021-0 No 1mg HCl 0.2 mg 5-04 tablet 00:00: 00 ezetimibe 2021-0 No 1mg 10 mg 5-04 tablet 00:00: 00 losartan 2021-0 No 1mg 100 5-04 mg-hydrochl 00:00: orothiazide 00 25 mg tablet liothyronin 2021-0 No 1mcg e 5 mcg 5-04 tablet 00:00: 00 levothyroxi 2021-0 No 1mcg ne 137 mcg 5-04 tablet 00:00: 00 Dose 2021-0 No Unknown 5-04 00:00: 00 ezetimibe 2021-0 No 1mg 10 mg 5-04 tablet 00:00: 00 losartan 2021-0 No 1mg 100 5-04 mg-hydrochl 00:00: orothiazide 00 25 mg tablet liothyronin 2021-0 No 1mcg e 5 mcg 5-04 tablet 00:00: 00 levothyroxi 2021-0 No 1mcg ne 137 mcg 5-04 tablet 00:00: 00 clonidine 2021-0 No 1mg HCl 0.2 mg 4-08 tablet 00:00: 00 clonidine 2021-0 No 1mg HCl 0.2 mg 4-08 tablet 00:00: 00 ezetimibe 2021-0 No 1mg 10 mg 3-17 tablet 00:00: 00 liothyronin 2021-0 No 1mcg e 5 mcg 3-17 tablet 00:00: 00 levothyroxi 2021-0 No 1mcg ne 137 mcg 3-17 tablet 00:00: 00 ezetimibe 2021-0 No 1mg 10 mg 3-17 tablet 00:00: 00 liothyronin 2021-0 No 1mcg e 5 mcg 3-17 tablet 00:00: 00 levothyroxi 2021-0 No 1mcg ne 137 mcg 3-17 tablet 00:00: 00 losartan 2021-0 No 1mg 100 3-16 mg-hydrochl 00:00: orothiazide 00 25 mg tablet levothyroxi 2021-0 No 1mcg ne 125 mcg 3-16 tablet 00:00: 00 liothyronin 2021-0 No 1mcg e 5 mcg 3-16 tablet 00:00: 00 losartan 2021-0 No 1mg 100 3-16 mg-hydrochl 00:00: orothiazide 00 25 mg tablet levothyroxi 1-0 No 1mcg ne 125 mcg 3-16 tablet 00:00: 00 liothyronin 1-0 No 1mcg e 5 mcg 3-16 tablet 00:00: 00 sulfamethox 1-0 No 1mg azole 800 1-14 mg-trimetho 00:00: prim 160 mg 00 tablet ondansetron 1-0 No 1mg 8 mg 1-14 disintegrat 00:00: ing tablet 00 sulfamethox 1-0 No 1mg azole 800 [...] n 50 mg 1-05 capsule 00:00: 00 amoxicillin 1-0 No 1mg 875 1-05 mg-potassiu 00:00: m 00 clavulanate 125 mg tablet liothyronin 1-0 No 1mcg e 5 mcg 1-05 tablet 00:00: 00 levothyroxi 1-0 No 1mcg ne 125 mcg 1-05 tablet 00:00: 00 indomethaci 1-0 No 1mg n 50 mg 1-05 capsule 00:00: 00 metformin 2020-1 No 1mg ER 500 mg 2-31 tablet,exte 00:00: nded 00 release 24 hr metformin 2020-1 No 1mg ER 500 mg 2-31 tablet,exte 00:00: nded 00 release 24 hr clonidine 2020-1 No 1mg HCl 0.2 mg 2-24 tablet 00:00: 00 losartan 2019-1 No 1mg 100 2-24 mg-hydrochl 00:00: orothiazide 00 25 mg tablet clonidine 2019-1 No 1mg HCl 0.2 mg 2-24 tablet 00:00: 00 losartan 2020-1 No 1mg 100 2-24 mg-hydrochl 00:00: orothiazide 00 25 mg tablet ondansetron 2019-1 No 1mg 4 mg 2-04 disintegrat 00:00: ing tablet 00 levothyroxi 2019-1 No 1mcg ne 125 mcg 2-04 tablet 00:00: 00 liothyronin 2019-1 No 1mcg e 5 mcg 2-04 tablet 00:00: 00 ondansetron 2019-1 No 1mg 4 mg 2-04 disintegrat 00:00: ing tablet 00 levothyroxi 2019-1 No 1mcg ne 125 mcg 2-04 tablet 00:00: 00 liothyronin 2019-1 No 1mcg e 5 mcg 2-04 tablet 00:00: 00 levothyroxi 2019-1 No 1mcg ne 125 mcg 0-08 tablet 00:00: 00 liothyronin 2019-1 No 1mcg e 5 mcg 0-08 tablet 00:00: 00 levothyroxi 2019-1 No 1mcg ne 125 mcg 0-08 tablet 00:00: 00 liothyronin 2019-1 No 1mcg e 5 mcg 0-08 tablet 00:00: 00 losartan 2020-0 No 1mg 100 9-18 mg-hydrochl 00:00: orothiazide 00 25 mg tablet metformin 2020-0 No 1mg ER 500 mg 9-18 tablet,exte 00:00: nded 00 release 24 hr losartan 2020-0 No 1mg 100 9-18 mg-hydrochl 00:00: orothiazide 00 25 mg tablet metformin 2020-0 No 1mg ER 500 mg 9-18 tablet,exte 00:00: nded 00 release 24 hr liothyronin 2020-0 No 1mcg e 5 mcg 9-04 tablet 00:00: 00 levothyroxi 2020-0 No 1mcg ne 137 mcg 9-04 tablet 00:00: 00 liothyronin 2020-0 No 1mcg e 5 mcg 9-04 tablet 00:00: 00 levothyroxi 2020-0 No 1mcg ne 137 mcg 9-04 tablet 00:00: 00 amoxicillin 2020-0 No 1mg 500 mg 7-10 capsule 00:00: 00 amoxicillin 2020-0 No 1mg 500 mg 7-10 capsule 00:00: 00 liothyronin 2020-0 No 1mcg e 5 mcg 3-27 tablet 00:00: 00 levothyroxi 2020-0 No 1mcg ne 137 mcg 3-27 tablet 00:00: 00 liothyronin 2020-0 No 1mcg [...] No 1mcg mcg capsule 3-26 00:00: 00 metformin 2020-0 No mg ER [...] HCl 4 mg 3-25 tablet 00:00: 00 ondansetron 2020-0 No mg HCl 4 mg 3-25 tablet 00:00: 00 risperidone 2020-0 No mg 1 mg tablet 3-20 00:00: 00 risperidone 2020-0 No mg 1 [...] mg 1-22 capsule,del 00:00: ayed 00 release losartan 2020-0 No 1mg 100 1-22 mg-hydrochl [...] ne 137 mcg 2-26 tablet 00:00: 00 levothyroxi 2019-1 No 1mcg ne 137 mcg 2-26 tablet 00:00: 00 Flagyl 500 2019-1 No 1mg mg tablet 1-13 00:00: 00 Flagyl 500 2019-1 No 1mg mg tablet 1-13 00:00: 00 Premarin 2019-1 No 1mg 0.625 mg 1-11 tablet 00:00: 00 Premarin 2019-1 No 1mg 0.625 mg 1-11 tablet 00:00: 00 metformin 2019-0 No 1mg ER 500 mg 9-24 tablet,exte 00:00: nded 00 release 24 hr levothyroxi 2019-0 No 1mcg ne 137 mcg 9-24 tablet 00:00: 00 metformin 2019-0 No 1mg ER 500 mg 9-24 tablet,exte 00:00: nded 00 release 24 hr levothyroxi 2019-0 No 1mcg ne 137 mcg 9-24 tablet 00:00: 00 levothyroxi 2019-0 No 1mcg ne 137 mcg 9-17 tablet 00:00: 00 levothyroxi 2019-0 No 1mcg [...] 1mg 100 mg 7-16 capsule 00:00: 00 Zofran 4 mg 2019-0 No [...] ne 137 mcg 6-10 tablet 00:00: 00 pantoprazol 2019-0 No 1mg e 40 mg 6-10 tablet,mali 00:00: yed release 00 clonidine 2019-0 No 1mg HCl 0.2 mg 6-10 tablet 00:00: 00 metformin 2019-0 No 1mg ER 500 mg 6-10 tablet,exte 00:00: nded 00 release 24 hr levothyroxi 2019-0 No 1mcg ne 137 mcg 6-10 tablet 00:00: 00 ondansetron 2019-0 No 1mg HCl 4 mg 5-06 tablet 00:00: 00 ondansetron 2019-0 No 1mg HCl 4 mg 5-06 tablet 00:00: 00 oxybutynin 2019-0 No 1mg chloride 5 4-01 mg tablet 00:00: 00 ondansetron 2019-0 No 1mg HCl 4 mg 4-01 tablet 00:00: 00 nitrofurant 2019-0 No 1mg oin 4-01 monohydrate 00:00: /macrocryst 00 als 100 mg capsule oxybutynin 2019-0 No 1mg chloride 5 4-01 mg tablet 00:00: 00 ondansetron 2019-0 No 1mg HCl 4 mg 4-01 tablet 00:00: 00 nitrofurant 2019-0 No 1mg oin 4-01 monohydrate 00:00: /macrocryst 00 als 100 mg capsule sulfamethox 2019-0 No 1mg azole 800 3-21 mg-trimetho 00:00: prim 160 mg 00 tablet sulfamethox 2019-0 No 1mg azole 800 3-21 mg-trimetho 00:00: prim 160 mg 00 tablet ondansetron 2019-0 No 1mg HCl 4 mg 3-18 tablet 00:00: 00 ondansetron 2019-0 No 1mg HCl 4 mg 3-18 tablet 00:00: 00 cephalexin 2019-0 No 1mg 500 mg 3-12 capsule 00:00: 00 cephalexin 2019-0 No 1mg 500 mg 3-12 capsule 00:00: 00 metformin 2019-0 No 1mg ER 500 mg 3-02 tablet,exte 00:00: nded 00 release 24 hr levothyroxi 2019-0 No 1mcg ne 137 mcg 3-02 tablet 00:00: 00 metformin 2019-0 No 1mg ER 500 mg 3-02 tablet,exte 00:00: nded 00 release 24 hr levothyroxi 2019-0 No 1mcg ne 137 mcg 3-02 tablet 00:00: 00 metformin 2018-1 No 1mg ER 500 mg 1-11 tablet,exte 00:00: nded 00 release 24 hr levothyroxi 2018-1 No 1mcg ne 137 mcg 1-11 tablet 00:00: 00 metformin 2018-1 No 1mg ER 500 mg 1-11 tablet,exte 00:00: nded 00 release 24 hr levothyroxi 2018-1 No 1mcg ne 137 mcg 1-11 tablet 00:00: 00 Prilosec 2018-1 No 1mg OTC 20 mg 1-08 tablet,mali 00:00: yed release 00 trazodone 2018-1 No 1mg 100 mg 1-08 tablet 00:00: 00 Prilosec 2018-1 No 1mg OTC 20 mg 1-08 tablet,mali 00:00: yed release 00 trazodone 2018-1 No 1mg 100 mg 1-08 tablet 00:00: 00 levothyroxi 2018-0 No 1mcg ne 137 mcg 9-03 tablet 00:00: 00 levothyroxi 2018-0 No 1mcg ne 137 mcg 9-03 tablet 00:00: 00 levothyroxi 2018-0 No 1mcg ne 150 mcg 8-29 tablet 00:00: 00 levothyroxi 2018-0 No 1mcg ne 150 mcg 8-29 tablet 00:00: 00 amlodipine 2018-0 No 1mg 5 mg tablet 8 00:00: 00 amlodipine 2018-0 No 1mg 5 mg tablet 8 00:00: 00 levothyroxi 2018-0 No 1mcg ne 150 mcg 8-28 tablet 00:00: 00 amlodipine 2018-0 No 1mg 5 mg tablet 8 00:00: 00 amlodipine 2018-0 No 1mg 5 mg tablet 8 00:00: 00 levothyroxi 2018-0 No 1mcg ne 150 mcg 8-28 tablet 00:00: 00 amlodipine 2018-0 No 1mg 5 mg tablet 7-17 00:00: 00 ondansetron 2018-0 No 1mg HCl 4 mg 7-17 tablet 00:00: 00 levothyroxi 2018-0 No 1mcg ne 150 mcg 7-17 tablet 00:00: 00 amlodipine 2018-0 No 1mg 5 mg tablet 717 00:00: 00 ondansetron 2018-0 No 1mg HCl 4 mg 7-17 tablet 00:00: 00 levothyroxi 2018-0 No 1mcg ne 150 mcg 7-17 tablet 00:00: 00 ondansetron 2018-0 No 1mg HCl 4 mg 7-10 tablet 00:00: 00 ondansetron 2018-0 No 1mg HCl 4 mg 7-10 tablet 00:00: 00 levothyroxi 2018-0 No 1mcg ne 150 mcg 6-28 tablet 00:00: 00 levothyroxi 2018-0 No 1mcg ne 150 mcg 6-28 tablet 00:00: 00 amlodipine 2018-0 No 1mg 5 mg tablet 6-25 00:00: 00 ondansetron 2018-0 No 1mg HCl 4 mg 6-25 tablet 00:00: 00 Nexium 20 2018-0 No 1mg mg 6-25 capsule,del 00:00: ayed 00 release amlodipine 2018-0 No 1mg 5 mg tablet 6-25 00:00: 00 ondansetron 2018-0 No 1mg HCl 4 mg 6-25 tablet 00:00: 00 Nexium 20 2018-0 No 1mg mg 6-25 capsule,del 00:00: ayed 00 release clonidine 2018-0 No 1mg HCl 0.2 mg 6-15 tablet 00:00: 00 clonidine 2018-0 No 1mg HCl 0.2 mg 6-15 tablet 00:00: 00 mirtazapine 2018-0 No 1mg 30 mg 6-06 tablet 00:00: 00 levothyroxi 2018-0 No 1mcg ne 125 mcg 6-06 tablet 00:00: 00 mirtazapine 2018-0 No 1mg 30 mg 6-06 tablet 00:00: 00 levothyroxi 2018-0 No 1mcg ne 125 mcg 6-06 tablet 00:00: 00 lovastatin 2018-0 No 1mg 10 mg 5-02 tablet 00:00: 00 lovastatin 2018-0 No 1mg 10 mg 5-02 tablet 00:00: 00 lovastatin 2018-0 No 1mg 20 mg 4-20 tablet 00:00: 00 lovastatin 2018-0 No 1mg 20 mg 4-20 tablet 00:00: 00 mirtazapine 2018-0 No 1mg 30 mg 4-16 tablet 00:00: 00 mirtazapine 2018-0 No 1mg 30 mg 4-16 tablet 00:00: 00 levothyroxi 2018-0 No 1mcg ne 125 mcg 2-12 tablet 00:00: 00 levothyroxi 2018-0 No 1mcg ne 125 mcg 2-12 tablet 00:00: 00 levothyroxi 2018-0 No 1mcg ne 125 mcg 2-09 tablet 00:00: 00 levothyroxi 2018-0 No 1mcg ne 125 mcg 2-09 tablet 00:00: 00 levothyroxi 2017-1 No 1mcg ne 125 mcg 2-21 tablet 00:00: 00 levothyroxi 2017-1 No 1mcg ne 125 mcg 2-21 tablet 00:00: 00 hydrochloro 2017-1 No 1mg thiazide 25 2-20 mg tablet 00:00: 00 levothyroxi 2017-1 No 1mcg ne 150 mcg 2-20 tablet 00:00: 00 hydrochloro 2017-1 No 1mg [...] 1mg 30 mg 1-15 tablet 00:00: 00 paroxetine 2017-1 [...] ne 150 mcg 0-24 tablet 00:00: 00 levothyroxi 2017-1 No 1mcg ne 150 mcg 0-24 tablet 00:00: 00 risperidone 2017-0 No 1mg 1 mg tablet 7-05 00:00: 00 Trileptal 2017-0 No 1mg 600 mg 7-05 tablet 00:00: 00 baclofen 10 2017-0 No 1mg mg tablet 7-05 00:00: 00 hydroxyzine 2017-0 No 1mg pamoate 50 7-05 mg capsule 00:00: 00 risperidone 2017-0 No 1mg 1 mg tablet 7-05 00:00: 00 Trileptal 2017-0 No 1mg 600 mg 7-05 tablet 00:00: 00 baclofen 10 2017-0 No 1mg mg tablet 7-05 00:00: 00 hydroxyzine 2017-0 No 1mg pamoate 50 7-05 mg capsule 00:00: 00 ondansetron 2017-0 No 1mg HCl 8 mg 6-29 tablet 00:00: 00 ondansetron 2017-0 No 1mg HCl 8 mg 6-29 tablet 00:00: 00 levothyroxi 2017-0 No 1mcg ne 150 mcg 6-21 tablet 00:00: 00 levothyroxi 2017-0 No 1mcg ne 150 mcg 6-21 tablet 00:00: 00 paroxetine 2017-0 No 1mg 40 mg 6-16 tablet 00:00: 00 mirtazapine 2017-0 No 1mg 30 mg 6-16 tablet 00:00: 00 paroxetine 2017-0 No 1mg 40 mg 6-16 tablet 00:00: 00 mirtazapine 2017-0 No 1mg 30 mg 6-16 tablet 00:00: 00 oxybutynin 2017-0 No 1mg chloride 5 6-12 mg tablet 00:00: 00 ondansetron 2017-0 No 1mg HCl 8 mg 6-12 tablet 00:00: 00 oxybutynin 2017-0 No 1mg chloride 5 6-12 mg tablet 00:00: 00 ondansetron 2017-0 No 1mg HCl 8 mg 6-12 tablet 00:00: 00 Keflex 500 2017-0 No 1mg mg capsule 6-05 00:00: 00 Keflex 500 2017-0 No 1mg [...] mg 5-30 tablet 00:00: 00 baclofen 10 2017-0 No 1mg mg tablet 5-30 00:00: 00 levothyroxi 2017-0 No 1mcg ne 150 mcg 5-30 tablet 00:00: 00 hydroxyzine 2017-0 No 1mg pamoate 50 5-30 mg capsule 00:00: 00 hydrochloro 2017-0 No 1mg thiazide [...] 600 mg 5-30 tablet 00:00: 00 mirtazapine 2016-0 No 1mg 30 mg 5-30 tablet 00:00: 00 oxcarbazepi 2017-0 No 1mg ne 600 mg 5-30 tablet 00:00: 00 baclofen 10 0 No 1mg mg tablet 5-30 00:00: 00 levothyroxi 0 No 1mcg ne 150 mcg 5-30 tablet 00:00: 00 hydroxyzine 0 No 1mg pamoate 50 5-30 mg capsule 00:00: 00 OXcarbazepi 0 Yes 600mg [id number] Take [address] [facility] ne 2-23 [id number] [facility] (TRILEPTAL) 10:23: 3D mouth 3 Med ical 600 MG 59 (three) Center tablet times daily. PARoxetine 2017-0 Yes 40mg QD Take [address] [facility] (PAXIL) 40 2-23 [facility] tablet 10:23: [facility]ly. [facility] OXcarbazepi 2016-0 Yes 600mg [id number] Take [address] [facility] ne 2-23 [id number] [facility] (TRILEPTAL) 10:23: 3D mouth 3 Med ical 600 MG 59 (three) Center tablet times daily. PARoxetine 2017-0 Yes 40mg QD Take [address] (PAXIL) 40 2-23 [facility] tablet 10:23: [facility]ly. [facility] OXcarbazepi 2017-0 Yes 600mg [id number] Take [address] [facility] ne 2-23 [id number] [facility] (TRILE[facility]AL) 10:23: 3D mouth 3 Med ical 600 MG 59 (three) Center tablet times daily. PARoxetine 2017-0 Yes 40mg QD Take [address] (PAXIL) 40 2-23 [facility] tablet 10:23: nightly. [facility] OXcarbazepi 2017-0 Yes 600mg [id number] Take [address] [facility] ne 2-23 [id number] [facility] (TRILE[facility]AL) 10:23: 3D mouth 3 Med ical 600 MG 59 (three) Center tablet times daily. PARoxetine 2017-0 Yes 40mg QD Take [address] (PAXIL) 40 2-23 [facility] tablet 10:23: nightly. [facility] LORazepam 2017-0 Yes 1mg Take 1 [facility] [...] doses. Max Daily Amount: 3 mg levothyroxi 2015-0 Yes 100ug QD Take 100 [...] Goal Plan of Care Note [code = 07579-5] Goal Plan of Care Note [code = 10701-1] Goal Plan of Care Note [code = 48707-5] Goal Plan of Care Note [code = 94207-1] Goal Plan of Care Note [code = 87734-1] Goal Plan of Care Note [code = 24208-3] Goal Plan of Care Note [code = 84610-5] Goal Plan of Care Note [code = 21256-4] Goal Plan of Care Note [code = 74273-4] Goal Plan of Care Note [code = 93758-1] Goal Plan of Care Note [code = 58001-6] Goal Plan of Care Note [code = 82567-9] Goal Plan of Care Note [code = 76501-6] Goal Plan of Care Note [code = 88655-3] Goal Plan of Care Note [code = 94274-4] Goal Plan of Care Note [code = 20300-6] Goal Plan of Care Note [code = 13623-7] Goal Plan of Care Note [code = 26606-9] Goal Plan of Care Note [code = 73655-3] Goal Plan of Care Note [code = 72520-8] Goal Plan of Care Note [code = 50071-9] Goal Plan of Care Note [code = 89064-3] Goal Plan of Care Note [code = 91412-3] Goal Plan of Care Note [code = 53972-0] Goal Plan of Care Note [code = 02924-2] Goal Plan of Care Note [code = 04613-2] Goal Plan of Care Note [code = 05278-8] Goal Plan of Care Note [code = 49731-7] Goal Plan of Care Note [code = 05989-4] Goal Plan of Care Note [code = 24963-1] Goal Plan of Care Note [code = 71494-0] Goal Plan of Care Note [code = 04366-4] Goal Plan of Care Note [code = 89246-6] Goal Plan of Care Note [code = 43989-8] Goal Plan of Care Note [code = 40249-8] Goal Plan of Care Note [code = 40737-5] Goal Plan of Care Note [code = 12209-0] Goal Plan of Care Note [code = 60175-5] Goal Plan of Care Note [code = 68010-6] Goal Plan of Care Note [code = 60799-5] Goal Plan of Care Note [code = 18941-0] Goal Plan of Care Note [code = 59621-4] Goal Plan of Care Note [code = 60773-2] Goal Plan of Care Note [code = 97992-5] Goal Plan of Care Note [code = 01825-7] Goal Plan of Care Note [code = 57335-0] Goal Plan of Care Note [code = 19936-1] Goal Plan of Care Note [code = 35972-2] Goal Plan of Care Note [code = 01413-2] Goal Plan of Care Note [code = 20959-2] Goal Plan of Care Note [code = 06361-9] Goal Plan of Care Note [code = 12372-6] Goal Plan of Care Note [code = 46786-5] Goal Plan of Care Note [code = 45559-8] Goal Plan of Care Note [code = 45874-3] Goal Plan of Care Note [code = 63024-4] Goal Plan of Care Note [code = 40009-3] Goal Plan of Care Note [code = 62500-8] Goal Plan of Care Note [code = 39434-1] Goal Plan of Care Note [code = 23103-1] Goal Plan of Care Note [code = 72533-3] Goal Plan of Care Note [code = 19907-0] Goal Plan of Care Note [code = 52644-2] Goal Plan of Care Note [code = 87538-6] Goal Plan of Care Note [code = 81602-4] Goal Plan of Care Note [code = 83436-8] Goal Plan of Care Note [code = 63992-0] Goal Plan of Care Note [code = 52559-3] Goal Plan of Care Note [code = 21432-7] Goal Plan of Care Note [code = 82384-0] Goal Plan of Care Note [code = 87898-8] Goal Plan of Care Note [code = 44704-3] Goal Plan of Care Note [code = 43664-3] Goal Plan of Care Note [code = 75651-2] Goal Plan of Care Note [code = 21341-9] Goal Plan of Care Note [code = 35663-4] Goal Plan of Care Note [code = 55667-1] Goal Plan of Care Note [code = 27851-3] Goal Plan of Care Note [code = 31365-6] Goal Plan of Care Note [code = 63984-8] Goal Plan of Care Note [code = 10301-4] Goal Plan of Care Note [code = 76354-7] Goal Plan of Care Note [code = 00032-9] Goal Plan of Care Note [code = 04320-2] Goal Plan of Care Note [code = 86484-6] Goal Plan of Care Note [code = 89525-2] Goal Plan of Care Note [code = 70305-0] Goal Plan of Care Note [code = 85526-1] Goal Plan of Care Note [code = 95987-7] Goal Plan of Care Note [code = 99591-3] Goal Plan of Care Note [code = 53640-7] Goal Plan of Care Note [code = 87623-1] Goal Plan of Care Note [code = 42184-1] Goal Plan of Care Note [code = 63240-8] Goal Plan of Care Note [code = 37269-8] Goal Plan of Care Note [code = 47845-3] Goal Plan of Care Note [code = 53996-2] Goal Plan of Care Note [code = 63308-5] Goal Plan of Care Note [code = 40540-2] Goal Plan of Care Note [code = 75139-3] Goal Plan of Care Note [code = 20781-0] Goal Plan of Care Note [code = 08885-0] Encounters Start End Encounter Admission Attending Care Care Encounter Source Date/Time Date/Time Type Type Clinicians Facility Department ID 2021-06-01 Outpatient [facility] [id number] Skylar 01:36:29 [id number] [facility] 2021-12-19 2021-12-19 Outpatient SFA SFA [id number] Cristian 16:11:31 16:11:31 1013 F Jerman 2021-12-19 2021-12-19 Outpatient [id number] 00:00:00 00:00:00 Visit d996-784x [id number]-a -adae-62b amelia-62bace nnzgu45mo fd81af 2021-09-17 2021-09-17 Outpatient prp4txdg- [id number] j9gpbs-4 00:00:00 00:00:00 Visit 935a-4f50 35a-4f50-b -h59q-r0i 77d-c2ba85 [id number] 2020-08-03 2020-08-03 Outpatient MATT VÁSQUEZ [facility] [id number] [facility] 10:00:00 10:00:00 MATT SIMPSON [facility] 2020-07-25 2020-07-25 Orders Doctor ABE [id number] 00:00:00 00:00:00 Only UnassignedBK 350.1.13.10 [place] [facility] 4.2.7.2.686 [id number] 2019-09-26 2019-09-26 Outpatient Bertin KRISHNAMURTHY [facility] [id number] Univers 16:00:00 16:00:00 WALLY [facility] 2018-10-21 2018-10-21 Telephone [facility], [facility] [id number] 00:00:00 00:00:00 Natacha Nguyen 350.1.13.10 Ade 4.2.7.2.686 [place] [id number] [facility] [address] Results Test Description Test Time Test Comments Results Result Comments Source TSH, THIRD GENERATION 2021-06-27 05:15:49 Test Item Value Reference Range Interpretation Comme nts TSH, THIRD GENERATION (test code = 2821) 2.080 UIU/ML 0.400-4.100 HEMOGLOBIN [id number] 03:46:00 Test Item Value Reference Range Interpretation Comments HEMOGLOBIN A1c (test 6.6 % 4.2-5.6 H [employer]ETES code = 27783) ASSOCIATION IDELINES FOR HGB A1C: PREDIABETES/INC REASED [...] INDICATED, ALL TESTING PER FORMED ATCLINICAL PATH OLhCentive [facility], [facility]. 9[address] [place] [address] LABORATORY DIRE CTOR: DIANA RUSS M.D. CLIA NUMBER [id number] [facility] [place]. [id number] LIPID [id number] 02:59:52 Test Item Value Reference Range Interpretation [...] MOREINFORMATION , SEE CLIENT ANNOUNCE MENT AT [email or web address] RISK RATIO LDL/HDL 4.02 RATIO <3.22 H (test code = 2238) [id number] 00:00:00 Test Item Value Reference Range Interpretation Comments TSH, THIRD GENERATION (test code 2.080 UIU/ML = 2821) [id number] 00:00:00 Test Item Value Reference Range Interpretation Comments TSH, THIRD GENERATION (test code 2.080 UIU/ML = 2821) LIPID [id number] 00:00:00 Test Item Value Reference Range Interpretation Comments CHOLESTEROL (test code = 2210) 292 MG/DL TRIGLYCERIDES (test code = 2232) 184 MG/DL HDL CHOLESTEROL (test code = 2220) 51 MG/DL CALC LDL CHOL (test code = 2237) 205 MG/DL RISK RATIO LDL/HDL (test code = 4.02 RATIO 2238) HEMOGLOBIN [id number] 00:00:00 Test Item Value Reference Range Interpretation Comments HEMOGLOBIN A1c (test code = 32751) 6.6 % HEMOGLOBIN [id number] 00:00:00 Test Item Value Reference Range Interpretation Comments HEMOGLOBIN A1c (test code = 17343) 6.6 % [id number] 00:00:00 Test Item Value Reference Range Interpretation Comments TSH, THIRD GENERATION (test code 2.080 UIU/ML = 2821) [id number] 00:00:00 Test Item Value Reference Range Interpretation Comments TSH, THIRD GENERATION (test code 2.080 UIU/ML = 2821) [id number] 00:00:00 Test Item Value Reference Range Interpretation Comments TSH, THIRD GENERATION (test code 2.080 UIU/ML = 2821) LIPID [id number] 00:00:00 Test Item Value Reference Range Interpretation Comments CHOLESTEROL (test code = 2210) 292 MG/DL TRIGLYCERIDES (test code = 2232) 184 MG/DL HDL CHOLESTEROL (test code = 2220) 51 MG/DL CALC LDL CHOL (test code = 2237) 205 MG/DL RISK RATIO LDL/HDL (test code = 4.02 RATIO 2238) LIPID [id number] 00:00:00 Test Item Value Reference Range Interpretation Comments CHOLESTEROL (test code = 2210) 292 MG/DL TRIGLYCERIDES (test code = 2232) 184 MG/DL HDL CHOLESTEROL (test code = 2220) 51 MG/DL CALC LDL CHOL (test code = 2237) 205 MG/DL RISK RATIO LDL/HDL (test code = 4.02 RATIO 2238) HEMOGLOBIN [id number] 00:00:00 Test Item Value Reference Range Interpretation Comments HEMOGLOBIN A1c (test code = 93988) 6.6 % HEMOGLOBIN [id number] 00:00:00 Test Item Value Reference Range Interpretation Comments HEMOGLOBIN A1c (test code = 59602) 6.6 % HEMOGLOBIN [id number] 00:00:00 Test Item Value Reference Range Interpretation Comments HEMOGLOBIN A1c (test code = 15307) 6.6 % HEMOGLOBIN [id number] 00:00:00 Test Item Value Reference Range Interpretation Comments HEMOGLOBIN A1c (test code = 26223) 6.8 % HEMOGLOBIN [id number] 00:00:00 Test Item Value Reference Range Interpretation Comments HEMOGLOBIN A1c (test code = 25462) 6.8 % LIPID [id number] 00:00:00 Test Item Value Reference Range Interpretation Comments CHOLESTEROL (test code = 2210) 303 MG/DL TRIGLYCERIDES (test code = 2232) 191 MG/DL HDL CHOLESTEROL (test code = 2220) 61 MG/DL CALC LDL CHOL (test code = 2237) 205 MG/DL RISK RATIO LDL/HDL (test code = 3.36 RATIO 2238) [id number] 00:00:00 Test Item Value Reference Range Interpretation Comments TSH, THIRD GENERATION (test code 0.769 UIU/ML = 2821) [id number] 00:00:00 Test Item Value Reference Range Interpretation Comments TSH, THIRD GENERATION (test code 0.769 UIU/ML = 2821) COMPREHENSIVE METABOLIC [id number] 00:00:00 Test Item Value Reference Range Interpretation Comments GLUCOSE (test code = 2217) 131 MG/DL BUN (test code = 2208) 13 MG/DL CREATININE (test code = 2214) 0.65 MG/DL eGFR AMER. (test code 113 ML/MIN/1.73 = 25952) eGFR NON- AMER. (test 97 ML/MIN/1.73 code = 14323) CALC BUN/CREAT (test code = 20 RATIO [...] (test code = 2219) 23 U/L HEMOGLOBIN [id number] 00:00:00 Test Item Value Reference Range Interpretation Comments HEMOGLOBIN A1c (test code = 44235) 6.8 % HEMOGLOBIN [id number] 00:00:00 Test Item Value Reference Range Interpretation Comments HEMOGLOBIN A1c (test code = 21050) 6.8 % HEMOGLOBIN [id number] 00:00:00 Test Item Value Reference Range Interpretation Comments HEMOGLOBIN A1c (test code = 54643) 6.8 % LIPID [id number] 00:00:00 Test Item Value Reference Range Interpretation Comments CHOLESTEROL (test code = 2210) 303 MG/DL TRIGLYCERIDES (test code = 2232) 191 MG/DL HDL CHOLESTEROL (test code = 2220) 61 MG/DL CALC LDL CHOL (test code = 2237) 205 MG/DL RISK RATIO LDL/HDL (test code = 3.36 RATIO 2238) LIPID [id number] 00:00:00 Test Item Value Reference Range Interpretation Comments CHOLESTEROL (test code = 2210) 303 MG/DL TRIGLYCERIDES (test code = 2232) 191 MG/DL HDL CHOLESTEROL (test code = 2220) 61 MG/DL CALC LDL CHOL (test code = 2237) 205 MG/DL RISK RATIO LDL/HDL (test code = 3.36 RATIO 2238) [id number] 00:00:00 Test Item Value Reference Range Interpretation Comments TSH, THIRD GENERATION (test code 0.769 UIU/ML = 2821) [id number] 00:00:00 Test Item Value Reference Range Interpretation Comments TSH, THIRD GENERATION (test code 0.769 UIU/ML = 2821) [id number] 00:00:00 Test Item Value Reference Range Interpretation Comments TSH, THIRD GENERATION (test code 0.769 UIU/ML = 2821) COMPREHENSIVE METABOLIC [id number] 00:00:00 Test Item Value Reference Range Interpretation Comments GLUCOSE (test code = 2217) 131 MG/DL BUN (test code = 2208) 13 MG/DL CREATININE (test code = 2214) 0.65 MG/DL eGFR AMER. (test code 113 ML/MIN/1.73 = 42611) eGFR NON- AMER. (test 97 ML/MIN/1.73 code = 28138) CALC BUN/CREAT (test code = 20 RATIO [...] ALT (test code = 2219) 23 U/L COMPREHENSIVE METABOLIC [id number] 00:00:00 Test Item Value Reference Range Interpretation Comments GLUCOSE (test code = 2217) 131 MG/DL BUN (test code = 2208) 13 MG/DL CREATININE (test code = 2214) 0.65 MG/DL eGFR AMER. (test code 113 ML/MIN/1.73 = 50531) eGFR NON- AMER. (test 97 ML/MIN/1.73 code = 26546) CALC BUN/CREAT (test code = 20 RATIO [...] (test code = 2219) 23 U/L HEMOGLOBIN [id number] 00:00:00 Test Item Value Reference Range Interpretation Comments HEMOGLOBIN A1c (test code = 78190) 6.6 % HEMOGLOBIN [id number] 00:00:00 Test Item Value Reference Range Interpretation Comments HEMOGLOBIN A1c (test code = 04678) 6.6 % LIPID [id number] 00:00:00 Test Item Value Reference Range Interpretation Comments CHOLESTEROL (test code = 2210) 261 MG/DL TRIGLYCERIDES (test code = 2232) 159 MG/DL HDL CHOLESTEROL (test code = 2220) 82 MG/DL CALC LDL CHOL (test code = 2237) 150 MG/DL RISK RATIO LDL/HDL (test code = 1.83 RATIO 2238) COMPREHENSIVE METABOLIC [id number] 00:00:00 Test Item Value Reference Range Interpretation Comments GLUCOSE (test code = 2217) 144 MG/DL BUN (test code = 2208) 15 MG/DL CREATININE (test code = 2214) 0.85 MG/DL eGFR AMER. (test code 87 ML/MIN/1.73 = 65634) eGFR NON- AMER. (test 75 ML/MIN/1.73 code = 10896) CALC BUN/CREAT (test code = 18 RATIO [...] THYROX. BIND. CAPAC. (test code 1.1 = 70618) T4 (THYROXINE) (test code = 4.3 UG/DL 2819) CORRECTED T4 (FTI) (test code = 3.9 UG/DL 2820) TSH, THIRD GENERATION (test 18.900 UIU/ML code = 2821) HEMOGLOBIN [id number] 00:00:00 Test Item Value Reference Range Interpretation Comments HEMOGLOBIN A1c (test code = 07931) 6.6 % HEMOGLOBIN [id number] 00:00:00 Test Item Value Reference Range Interpretation Comments HEMOGLOBIN A1c (test code = 62467) 6.6 % HEMOGLOBIN [id number] 00:00:00 Test Item Value Reference Range Interpretation Comments HEMOGLOBIN A1c (test code = 92649) 6.6 % LIPID [id number] 00:00:00 Test Item Value Reference Range Interpretation Comments CHOLESTEROL (test code = 2210) 261 MG/DL TRIGLYCERIDES (test code = 2232) 159 MG/DL HDL CHOLESTEROL (test code = 2220) 82 MG/DL CALC LDL CHOL (test code = 2237) 150 MG/DL RISK RATIO LDL/HDL (test code = 1.83 RATIO 2238) LIPID [id number] 00:00:00 Test Item Value Reference Range Interpretation Comments CHOLESTEROL (test code = 2210) 261 MG/DL TRIGLYCERIDES (test code = 2232) 159 MG/DL HDL CHOLESTEROL (test code = 2220) 82 MG/DL CALC LDL CHOL (test code = 2237) 150 MG/DL RISK RATIO LDL/HDL (test code = 1.83 RATIO 2238) COMPREHENSIVE METABOLIC [id number] 00:00:00 Test Item Value Reference Range Interpretation Comments GLUCOSE (test code = 2217) 144 MG/DL BUN (test code = 2208) 15 MG/DL CREATININE (test code = 2214) 0.85 MG/DL eGFR AMER. (test code 87 ML/MIN/1.73 = 01961) eGFR NON- AMER. (test 75 ML/MIN/1.73 code = 13859) CALC BUN/CREAT (test code = 18 RATIO 2235) SODIUM (test code = 2231) 133 MEQ/L POTASSIUM (test code = 2228) 4.5 MEQ/L CHLORIDE (test code = 2215) 93 MEQ/L CARBON DIOXIDE (test code = 28 MEQ/L 2206) CALCIUM (test code = 2209) 9.7 MG/DL [...] ALT (test code = 2219) 50 U/L COMPREHENSIVE METABOLIC [id number] 00:00:00 Test Item Value Reference Range Interpretation Comments GLUCOSE (test code = 2217) 144 MG/DL BUN (test code = 2208) 15 MG/DL CREATININE (test code = 2214) 0.85 MG/DL eGFR AMER. (test code 87 ML/MIN/1.73 = 03296) eGFR NON- AMER. (test 75 ML/MIN/1.73 code = 20497) CALC BUN/CREAT (test code = 18 RATIO [...] THYROX. BIND. CAPAC. (test code 1.1 = 42186) T4 (THYROXINE) (test code = 4.3 UG/DL 2819) CORRECTED T4 (FTI) (test code = 3.9 UG/DL 2820) TSH, THIRD GENERATION (test 18.900 UIU/ML code = 2821) THYROID II PROFILE (T3U, T4, T7, TSH)[id number] 00:00:00 Test Item Value Reference Range Interpretation Comments T-UPTAKE (test code = 2817) 30.2 % THYROX. BIND. CAPAC. (test code 1.1 = 47951) T4 (THYROXINE) (test code = 4.3 UG/DL 2819) CORRECTED T4 (FTI) (test code = 3.9 UG/DL 2820) TSH, THIRD GENERATION (test 18.900 UIU/ML code = 2821) HEMOGLOBIN [id number] 00:00:00 Test Item Value Reference Range Interpretation Comments HEMOGLOBIN A1c (test code = 78902) 6.7 % HEMOGLOBIN [id number] 00:00:00 Test Item Value Reference Range Interpretation Comments HEMOGLOBIN A1c (test code = 15458) 6.7 % LIPID [id number] 00:00:00 Test Item Value Reference Range Interpretation Comments CHOLESTEROL (test code = 2210) 267 MG/DL TRIGLYCERIDES (test code = 2232) 137 MG/DL HDL CHOLESTEROL (test code = 2220) 48 MG/DL CALC LDL CHOL (test code = 2237) 192 MG/DL RISK RATIO LDL/HDL (test code = 4.00 RATIO 2238) COMPREHENSIVE METABOLIC [id number] 00:00:00 Test Item Value Reference Range Interpretation Comments GLUCOSE (test code = 2217) 155 MG/DL BUN (test code = 2208) 14 MG/DL CREATININE (test code = 2214) 0.52 MG/DL eGFR AMER. (test code 122 ML/MIN/1.73 = 82093) eGFR NON- AMER. (test 105 ML/MIN/1.73 code = 56757) CALC BUN/CREAT (test code = 27 RATIO [...] 2239) CALC A/G RATIO (test code = 1.7 RATIO 2233) BILIRUBIN, TOTAL (test code = <0.2 MG/DL 2206) ALKALINE PHOSPHATASE (test 115 U/L code = 220) AST (test code = 2218) 17 U/L ALT (test code = 2219) 27 U/L THYROID II PROFILE (T3U, T4, T7, TSH)2019 00:00:00 Test Item Value Reference Range Interpretation Comments T-UPTAKE (test code = 2817) 33.1 % THYROX. BIND. CAPAC. (test code 1.0 = 59821) T4 (THYROXINE) (test code = 4.7 UG/DL 2819) CORRECTED T4 (FTI) (test code = 4.7 UG/DL 2820) TSH, THIRD GENERATION (test code 0.201 UIU/ML = 2821) HEMOGLOBIN [id number] 00:00:00 Test Item Value Reference Range Interpretation Comments HEMOGLOBIN A1c (test code = 77698) 6.7 % HEMOGLOBIN [id number] 00:00:00 Test Item Value Reference Range Interpretation Comments HEMOGLOBIN A1c (test code = 18557) 6.7 % HEMOGLOBIN [id number] 00:00:00 Test Item Value Reference Range Interpretation Comments HEMOGLOBIN A1c (test code = 81402) 6.7 % LIPID [id number] 00:00:00 Test Item Value Reference Range Interpretation Comments CHOLESTEROL (test code = 2210) 267 MG/DL TRIGLYCERIDES (test code = 2232) 137 MG/DL HDL CHOLESTEROL (test code = 2220) 48 MG/DL CALC LDL CHOL (test code = 2237) 192 MG/DL RISK RATIO LDL/HDL (test code = 4.00 RATIO 2238) LIPID [id number] 00:00:00 Test Item Value Reference Range Interpretation Comments CHOLESTEROL (test code = 2210) 267 MG/DL TRIGLYCERIDES (test code = 2232) 137 MG/DL HDL CHOLESTEROL (test code = 2220) 48 MG/DL CALC LDL CHOL (test code = 2237) 192 MG/DL RISK RATIO LDL/HDL (test code = 4.00 RATIO 2238) COMPREHENSIVE METABOLIC [id number] 00:00:00 Test Item Value Reference Range Interpretation Comments GLUCOSE (test code = 2217) 155 MG/DL BUN (test code = 2208) 14 MG/DL CREATININE (test code = 2214) 0.52 MG/DL eGFR AMER. (test code 122 ML/MIN/1.73 = 09171) eGFR NON- AMER. (test 105 ML/MIN/1.73 code = 20840) CALC BUN/CREAT (test code = 27 RATIO [...] CALC GLOBULIN (test code = 2.6 G/DL 0) CALC A/G RATIO (test code = 1.7 RATIO 2233) BILIRUBIN, TOTAL (test code = <0.2 MG/DL 2206) ALKALINE PHOSPHATASE (test 115 U/L code = 2204) AST (test code = 2218) 17 U/L ALT (test code = 2219) 27 U/L COMPREHENSIVE METABOLIC [id number] 00:00:00 Test Item Value Reference Range Interpretation Comments GLUCOSE (test code = 2217) 155 MG/DL BUN (test code = 2208) 14 MG/DL CREATININE (test code = 2214) 0.52 MG/DL eGFR AMER. (test code 122 ML/MIN/1.73 = 14364) eGFR NON- AMER. (test 105 ML/MIN/1.73 code = 27091) CALC BUN/CREAT (test code = 27 RATIO [...] THYROX. BIND. CAPAC. (test code 1.0 = 41153) T4 (THYROXINE) (test code = 4.7 UG/DL 2819) CORRECTED T4 (FTI) (test code = 4.7 UG/DL 2820) TSH, THIRD GENERATION (test code 0.201 UIU/ML = 2821) THYROID II PROFILE (T3U, T4, T7, TSH)2019 00:00:00 Test Item Value Reference Range Interpretation Comments T-UPTAKE (test code = 7) 33.1 % THYROX. BIND. CAPAC. (test code 1.0 = 39165) T4 (THYROXINE) (test code = 4.7 UG/DL 2819) CORRECTED T4 (FTI) (test code = 4.7 UG/DL 2820) TSH, THIRD GENERATION (test code 0.201 UIU/ML = 2821) SARS-CoV-2 (COVID-19) by RT-PCR (HIGH RISK)2019-09-18 00:00:00 Test Item Value Reference Range Interpretation Comments SARS-CoV-2 INTERPRETATION (test NEGATIVE code = 37503) SOURCE (test code = 07721) NOT SPECIFIED SARS-CoV-2 (COVID-19) by RT-PCR (HIGH RISK)2019-09-18 00:00:00 Test Item Value Reference Range Interpretation Comments SARS-CoV-2 INTERPRETATION (test NEGATIVE code = 12317) SOURCE (test code = 08509) NOT SPECIFIED SARS-CoV-2 (COVID-19) by RT-PCR (HIGH RISK)2019-09-18 00:00:00 Test Item Value Reference Range Interpretation Comments SARS-CoV-2 INTERPRETATION (test NEGATIVE code = 62811) SOURCE (test code = 04896) NOT SPECIFIED [id number] 00:00:00 Test Item Value Reference Range Interpretation Comments TSH, THIRD GENERATION (test code 2.490 UIU/ML = 2821) [id number] 00:00:00 Test Item Value Reference Range Interpretation Comments TSH, THIRD GENERATION (test code 2.490 UIU/ML = 2821) HEMOGLOBIN [id number] 00:00:00 Test Item Value Reference Range Interpretation Comments HEMOGLOBIN A1c (test code = 49922) 6.4 % HEMOGLOBIN [id number] 00:00:00 Test Item Value Reference Range Interpretation Comments HEMOGLOBIN A1c (test code = 16759) 6.4 % COMPREHENSIVE METABOLIC [id number] 00:00:00 Test Item Value Reference Range Interpretation Comments GLUCOSE (test code = 2217) 206 MG/DL BUN (test code = 2208) 23 MG/DL CREATININE (test code = 2214) 0.67 MG/DL eGFR AMER. (test code 112 ML/MIN/1.73 = 06955) eGFR NON- AMER. (test 97 ML/MIN/1.73 code = 38398) CALC BUN/CREAT (test code = 34 RATIO [...] CALC GLOBULIN (test code = 2.2 G/DL 0) CALC A/G RATIO (test code = 2.1 RATIO 2234) BILIRUBIN, TOTAL (test code = <0.2 MG/DL 2206) ALKALINE PHOSPHATASE (test 105 U/L code = 2204) AST (test code = 2218) 17 U/L ALT (test code = 2219) 25 U/L [id number] 00:00:00 Test Item Value Reference Range Interpretation Comments TSH, THIRD GENERATION (test code 2.490 UIU/ML = 2821) [id number] 00:00:00 Test Item Value Reference Range Interpretation Comments TSH, THIRD GENERATION (test code 2.490 UIU/ML = 2821) [id number] 00:00:00 Test Item Value Reference Range Interpretation Comments TSH, THIRD GENERATION (test code 2.490 UIU/ML = 2821) HEMOGLOBIN [id number] 00:00:00 Test Item Value Reference Range Interpretation Comments HEMOGLOBIN A1c (test code = 05016) 6.4 % HEMOGLOBIN [id number] 00:00:00 Test Item Value Reference Range Interpretation Comments HEMOGLOBIN A1c (test code = 46097) 6.4 % HEMOGLOBIN [id number] 00:00:00 Test Item Value Reference Range Interpretation Comments HEMOGLOBIN A1c (test code = 37165) 6.4 % COMPREHENSIVE METABOLIC [id number] 00:00:00 Test Item Value Reference Range Interpretation Comments GLUCOSE (test code = 2217) 206 MG/DL BUN (test code = 2208) 23 MG/DL CREATININE (test code = 2214) 0.67 MG/DL eGFR AMER. (test code 112 ML/MIN/1.73 = 07411) eGFR NON- AMER. (test 97 ML/MIN/1.73 code = 38492) CALC BUN/CREAT (test code = 34 RATIO [...] ALT (test code = 2219) 25 U/L COMPREHENSIVE METABOLIC [id number] 00:00:00 Test Item Value Reference Range Interpretation Comments GLUCOSE (test code = 2217) 206 MG/DL BUN (test code = 2208) 23 MG/DL CREATININE (test code = 2214) 0.67 MG/DL eGFR AMER. (test code 112 ML/MIN/1.73 = 67721) eGFR NON- AMER. (test 97 ML/MIN/1.73 code = 54396) CALC BUN/CREAT (test code = 34 RATIO 2235) SODIUM (test code = 2231) 142 MEQ/L POTASSIUM (test code = 2228) 4.1 MEQ/L CHLORIDE (test code = 2215) 99 MEQ/L CARBON DIOXIDE (test code = 28 MEQ/L 220) CALCIUM (test code = 2209) 8.8 MG/DL PROTEIN, TOTAL (test code = 6.8 G/DL 2228) ALBUMIN (test code = 2201) 4.6 G/DL CALC GLOBULIN (test code = 2.2 G/DL 2240) CALC A/G RATIO (test code = 2.1 RATIO 4) BILIRUBIN, TOTAL (test code = <0.2 MG/DL 2206) ALKALINE PHOSPHATASE (test 105 U/L code = 2204) AST (test code = 2218) 17 U/L ALT (test code = 2219) 25 U/L VAGINAL PATHOGENS DNA [id number] 00:00:00 Test Item Value Reference Range Interpretation Comments MARK SPECIES (test code = 67949) NEGATIVE G. VAGINALIS (test code = 40491) NEGATIVE T. VAGINALIS (test code = 75740) NEGATIVE VAGINAL PATHOGENS DNA [id number] 00:00:00 Test Item Value Reference Range Interpretation Comments MARK SPECIES (test code = 78225) NEGATIVE G. VAGINALIS (test code = 22261) NEGATIVE T. VAGINALIS (test code = 42411) NEGATIVE VAGINAL PATHOGENS DNA [id number] 00:00:00 Test Item Value Reference Range Interpretation Comments MARK SPECIES (test code = 61140) NEGATIVE G. VAGINALIS (test code = 81285) NEGATIVE T. VAGINALIS (test code = 83776) NEGATIVE HEMOGLOBIN A1c [ADDED]2018-12-01 00:00:00 Test Item Value Reference Range Interpretation Comments HEMOGLOBIN A1c (test code = 12306) 6.7 % HEMOGLOBIN A1c [ADDED]2018-12-01 00:00:00 Test Item Value Reference Range Interpretation Comments HEMOGLOBIN A1c (test code = 18799) 6.7 % COMPREHENSIVE METABOLIC PANEL [ADDED]2018-12-01 00:00:00 Test Item Value Reference Range Interpretation Comments GLUCOSE (test code = 2217) 136 MG/DL BUN (test code = 2208) 15 MG/DL CREATININE (test code = 2214) 0.64 MG/DL eGFR AMER. (test code 115 ML/MIN/1.73 = 72426) eGFR NON- AMER. (test 99 ML/MIN/1.73 code = 93912) CALC BUN/CREAT (test code = 23 RATIO 2235) SODIUM (test code = 2231) 142 MEQ/L POTASSIUM (test code = 2228) 4.7 MEQ/L CHLORIDE (test code = 2215) 97 MEQ/L CARBON DIOXIDE (test code = 30 MEQ/L 2206) CALCIUM (test code = 2209) 10.1 MG/DL PROTEIN, TOTAL (test code = 7.7 G/DL 222) ALBUMIN (test code = 2201) 5.0 G/DL [...] Interpretation Comments HEMOGLOBIN A1c (test code = 23822) 6.7 % HEMOGLOBIN A1c [ADDED]2018-12-01 00:00:00 Test Item Value Reference Range Interpretation Comments HEMOGLOBIN A1c (test code = 20319) 6.7 % HEMOGLOBIN A1c [ADDED]2018-12-01 00:00:00 Test Item Value Reference Range Interpretation Comments HEMOGLOBIN A1c (test code = 91127) 6.7 % COMPREHENSIVE METABOLIC PANEL [ADDED]2018-12-01 00:00:00 Test Item Value Reference Range Interpretation Comments GLUCOSE (test code = 2217) 136 MG/DL BUN (test code = 2208) 15 MG/DL CREATININE (test code = 2214) 0.64 MG/DL eGFR AMER. (test code 115 ML/MIN/1.73 = 03303) eGFR NON- AMER. (test 99 ML/MIN/1.73 code = 86394) CALC BUN/CREAT (test code = 23 RATIO [...] 224) CALC A/G RATIO (test code = 1.9 RATIO 2234) BILIRUBIN, TOTAL (test code = <0.2 MG/DL 2206) ALKALINE PHOSPHATASE (test 111 U/L code = 2204) AST (test code = 2218) 15 U/L ALT (test code = 2219) 25 U/L COMPREHENSIVE METABOLIC PANEL [ADDED]2018-12-01 00:00:00 Test Item Value Reference Range Interpretation Comments GLUCOSE (test code = 2217) 136 MG/DL BUN (test code = 2208) 15 MG/DL CREATININE (test code = 2214) 0.64 MG/DL eGFR AMER. (test code 115 ML/MIN/1.73 = 47660) eGFR NON- AMER. (test 99 ML/MIN/1.73 code = 74078) CALC BUN/CREAT (test code = 23 RATIO 2235) SODIUM (test code = 2231) 142 MEQ/L POTASSIUM (test code = 2228) 4.7 MEQ/L CHLORIDE (test code = 2215) 97 MEQ/L CARBON DIOXIDE (test code = 30 MEQ/L 220) CALCIUM (test code = 2209) 10.1 MG/DL [...] code 1.280 UIU/ML = 2821) CBC W/AUTO [id number] 00:00:00 Test Item Value Reference Range Interpretation [...] code = 1015) 346 K/UL CBC W/AUTO [id number] 00:00:00 Test Item Value Reference Range Interpretation [...] (test code = 1015) 346 K/UL HEMOGLOBIN [id number] 00:00:00 Test Item Value Reference Range Interpretation Comments HEMOGLOBIN A1c (test code = 88400) 5.9 % HEMOGLOBIN [id number] 00:00:00 Test Item Value Reference Range Interpretation Comments HEMOGLOBIN A1c (test code = 28284) 5.9 % LIPID [id number] 00:00:00 Test Item Value Reference Range Interpretation Comments CHOLESTEROL (test code = 2210) 318 MG/DL TRIGLYCERIDES (test code = 2232) 263 MG/DL HDL CHOLESTEROL (test code = 2220) 51 MG/DL CALC LDL CHOL (test code = 2237) 214 MG/DL RISK RATIO LDL/HDL (test code = 4.20 RATIO 2238) COMPREHENSIVE METABOLIC [id number] 00:00:00 Test Item Value Reference Range Interpretation Comments GLUCOSE (test code = 2217) 113 MG/DL BUN (test code = 2208) 18 MG/DL CREATININE (test code = 2214) 0.70 MG/DL eGFR AMER. (test code 111 ML/MIN/1.73 = 72827) eGFR NON- AMER. (test 96 ML/MIN/1.73 code = 72541) CALC BUN/CREAT (test code = 26 RATIO [...] BILIRUBIN, TOTAL (test code = <0.2 MG/DL 2207) ALKALINE PHOSPHATASE (test 80 U/L code = 2204) AST (test code = 2218) 21 U/L ALT (test code = 2219) 31 U/L [id number] 00:00:00 Test Item Value Reference Range Interpretation Comments TSH, THIRD GENERATION (test code 2.520 UIU/ML = 2821) [id number] 00:00:00 Test Item Value Reference Range Interpretation Comments TSH, THIRD GENERATION (test code 2.520 UIU/ML = 2821) CBC W/AUTO [id number] 00:00:00 Test Item Value Reference Range Interpretation [...] code = 1015) 346 K/UL CBC W/AUTO [id number] 00:00:00 Test Item Value Reference Range Interpretation [...] code = 1015) 346 K/UL CBC W/AUTO [id number] 00:00:00 Test Item Value Reference Range Interpretation [...] (test code = 1015) 346 K/UL HEMOGLOBIN [id number] 00:00:00 Test Item Value Reference Range Interpretation Comments HEMOGLOBIN A1c (test code = 58045) 5.9 % HEMOGLOBIN [id number] 00:00:00 Test Item Value Reference Range Interpretation Comments HEMOGLOBIN A1c (test code = 63989) 5.9 % HEMOGLOBIN [id number] 00:00:00 Test Item Value Reference Range Interpretation Comments HEMOGLOBIN A1c (test code = 37247) 5.9 % LIPID [id number] 00:00:00 Test Item Value Reference Range Interpretation Comments CHOLESTEROL (test code = 2210) 318 MG/DL TRIGLYCERIDES (test code = 2232) 263 MG/DL HDL CHOLESTEROL (test code = 2220) 51 MG/DL CALC LDL CHOL (test code = 2237) 214 MG/DL RISK RATIO LDL/HDL (test code = 4.20 RATIO 2238) LIPID [id number] 00:00:00 Test Item Value Reference Range Interpretation Comments CHOLESTEROL (test code = 2210) 318 MG/DL TRIGLYCERIDES (test code = 2232) 263 MG/DL HDL CHOLESTEROL (test code = 2220) 51 MG/DL CALC LDL CHOL (test code = 2237) 214 MG/DL RISK RATIO LDL/HDL (test code = 4.20 RATIO 2238) COMPREHENSIVE METABOLIC [id number] 00:00:00 Test Item Value Reference Range Interpretation Comments GLUCOSE (test code = 2217) 113 MG/DL BUN (test code = 2208) 18 MG/DL CREATININE (test code = 2214) 0.70 MG/DL eGFR AMER. (test code 111 ML/MIN/1.73 = 93437) eGFR NON- AMER. (test 96 ML/MIN/1.73 code = 86484) CALC BUN/CREAT (test code = 26 RATIO [...] code = 2219) 31 U/L COMPREHENSIVE METABOLIC [id number] 00:00:00 Test Item Value Reference Range Interpretation Comments GLUCOSE (test code = 2217) 113 MG/DL BUN (test code = 2208) 18 MG/DL CREATININE (test code = 2214) 0.70 MG/DL eGFR AMER. (test code 111 ML/MIN/1.73 = 01148) eGFR NON- AMER. (test 96 ML/MIN/1.73 code = 86401) CALC BUN/CREAT (test code = 26 RATIO 2235) SODIUM (test code = 2231) 137 MEQ/L POTASSIUM (test code = 2228) 4.3 MEQ/L CHLORIDE (test code = 2215) 99 MEQ/L CARBON DIOXIDE (test code = 24 MEQ/L 220) CALCIUM (test code = 2209) 9.6 MG/DL PROTEIN, TOTAL (test code = 7.2 G/DL 2229) ALBUMIN (test code = 2201) 4.8 G/DL CALC GLOBULIN (test code = 2.4 G/DL 0) CALC A/G RATIO (test code = 2.0 RATIO 4) BILIRUBIN, TOTAL (test code = <0.2 MG/DL 2206) ALKALINE PHOSPHATASE (test 80 U/L code = 2204) AST (test code = 2218) 21 U/L ALT (test code = 2219) 31 U/L [id number] 00:00:00 Test Item Value Reference Range Interpretation Comments TSH, THIRD GENERATION (test code 2.520 UIU/ML = 2821) [id number] 00:00:00 Test Item Value Reference Range Interpretation Comments TSH, THIRD GENERATION (test code 2.520 UIU/ML = 2821) [id number] 00:00:00 Test Item Value Reference Range Interpretation Comments TSH, THIRD GENERATION (test code 2.520 UIU/ML = 2821) CULTURE, [id number] 00:00:00 Test Item Value Reference Range Interpretation Comments CULTURE, URINE (test SPECIMEN NUMBER: code = 03737) [id number] CULTURE, [id number] 00:00:00 Test Item Value Reference Range Interpretation Comments CULTURE, URINE (test SPECIMEN NUMBER: code = 23673) [id number] CULTURE, [id number] 00:00:00 Test Item Value Reference Range Interpretation Comments CULTURE, URINE (test SPECIMEN NUMBER: code = 98909) [id number] CULTURE, [id number] 00:00:00 Test Item Value Reference Range Interpretation Comments CULTURE, URINE (test SPECIMEN NUMBER: code = 96484) [id number] CULTURE, [id number] 00:00:00 Test Item Value Reference Range Interpretation Comments CULTURE, URINE (test SPECIMEN NUMBER: code = 76997) [id number] CULTURE, [id number] 00:00:00 Test Item Value Reference Range Interpretation Comments CULTURE, URINE (test SPECIMEN NUMBER: code = 70001) [id number] BASIC METABOLIC [id number] 00:00:00 Test Item Value Reference Range Interpretation Comments GLUCOSE (test code = 2217) 135 MG/DL BUN (test code = 2208) 25 MG/DL CREATININE (test code = 2214) 0.76 MG/DL eGFR AMER. (test code 101 ML/MIN/1.73 = 58171) eGFR NON- AMER. (test 87 ML/MIN/1.73 code = 48863) SODIUM (test code = 2231) 139 MEQ/L POTASSIUM (test code = 2228) 4.7 MEQ/L CHLORIDE (test code = 2215) 99 MEQ/L CARBON DIOXIDE (test code = 26 MEQ/L 2206) CALCIUM (test code = 2209) 9.4 MG/DL LIPID [id number] 00:00:00 Test Item Value Reference Range Interpretation Comments CHOLESTEROL (test code = 2210) 262 MG/DL TRIGLYCERIDES (test code = 2232) 300 MG/DL HDL CHOLESTEROL (test code = 2220) 36 MG/DL CALC LDL CHOL (test code = 2237) 166 MG/DL RISK RATIO LDL/HDL (test code = 4.61 RATIO 2238) HEMOGLOBIN [id number] 00:00:00 Test Item Value Reference Range Interpretation Comments HEMOGLOBIN A1c (test code = 75250) 6.2 % HEMOGLOBIN [id number] 00:00:00 Test Item Value Reference Range Interpretation Comments HEMOGLOBIN A1c (test code = 53833) 6.2 % [id number] 00:00:00 Test Item Value Reference Range Interpretation Comments TSH, THIRD GENERATION (test code 0.988 UIU/ML = 2821) [id number] 00:00:00 Test Item Value Reference Range Interpretation Comments TSH, THIRD GENERATION (test code 0.988 UIU/ML = 2821) BASIC METABOLIC [id number] 00:00:00 Test Item Value Reference Range Interpretation Comments GLUCOSE (test code = 2217) 135 MG/DL BUN (test code = 2208) 25 MG/DL CREATININE (test code = 2214) 0.76 MG/DL eGFR AMER. (test code 101 ML/MIN/1.73 = 32402) eGFR NON- AMER. (test 87 ML/MIN/1.73 code = 61209) SODIUM (test code = 2231) 139 MEQ/L POTASSIUM (test code = 2228) 4.7 MEQ/L CHLORIDE (test code = 2215) 99 MEQ/L CARBON DIOXIDE (test code = 26 MEQ/L 2206) CALCIUM (test code = 2209) 9.4 MG/DL BASIC METABOLIC [id number] 00:00:00 Test Item Value Reference Range Interpretation Comments GLUCOSE (test code = 2217) 135 MG/DL BUN (test code = 2208) 25 MG/DL CREATININE (test code = 2214) 0.76 MG/DL eGFR AMER. (test code 101 ML/MIN/1.73 = 32740) eGFR NON- AMER. (test 87 ML/MIN/1.73 code = 61044) SODIUM (test code = 2231) 139 MEQ/L POTASSIUM (test code = 2228) 4.7 MEQ/L CHLORIDE (test code = 2215) 99 MEQ/L CARBON DIOXIDE (test code = 26 MEQ/L 2206) CALCIUM (test code = 2209) 9.4 MG/DL LIPID [id number] 00:00:00 Test Item Value Reference Range Interpretation Comments CHOLESTEROL (test code = 2210) 262 MG/DL TRIGLYCERIDES (test code = 2232) 300 MG/DL HDL CHOLESTEROL (test code = 2220) 36 MG/DL CALC LDL CHOL (test code = 2237) 166 MG/DL RISK RATIO LDL/HDL (test code = 4.61 RATIO 2238) LIPID [id number] 00:00:00 Test Item Value Reference Range Interpretation Comments CHOLESTEROL (test code = 2210) 262 MG/DL TRIGLYCERIDES (test code = 2232) 300 MG/DL HDL CHOLESTEROL (test code = 2220) 36 MG/DL CALC LDL CHOL (test code = 2237) 166 MG/DL RISK RATIO LDL/HDL (test code = 4.61 RATIO 2238) HEMOGLOBIN [id number] 00:00:00 Test Item Value Reference Range Interpretation Comments HEMOGLOBIN A1c (test code = 19502) 6.2 % HEMOGLOBIN [id number] 00:00:00 Test Item Value Reference Range Interpretation Comments HEMOGLOBIN A1c (test code = 25261) 6.2 % HEMOGLOBIN [id number] 00:00:00 Test Item Value Reference Range Interpretation Comments HEMOGLOBIN A1c (test code = 91284) 6.2 % [id number] 00:00:00 Test Item Value Reference Range Interpretation Comments TSH, THIRD GENERATION (test code 0.988 UIU/ML = 2821) [id number] 00:00:00 Test Item Value Reference Range Interpretation Comments TSH, THIRD GENERATION (test code 0.988 UIU/ML = 2821) [id number] 00:00:00 Test Item Value Reference Range Interpretation Comments TSH, THIRD GENERATION (test code 0.988 UIU/ML = 2821) COMPREHENSIVE METABOLIC [id number] 00:00:00 Test Item Value Reference Range Interpretation Comments GLUCOSE (test code = 2217) 109 MG/DL BUN (test code = 2208) 25 MG/DL CREATININE (test code = 2214) 0.78 MG/DL eGFR AMER. (test code 98 ML/MIN/1.73 = 07172) eGFR NON- AMER. (test 84 ML/MIN/1.73 code = 80149) CALC BUN/CREAT (test code = 32 RATIO [...] (test code = 2219) 25 U/L LIPID [id number] 00:00:00 Test Item Value Reference Range Interpretation Comments CHOLESTEROL (test code = 2210) 295 MG/DL TRIGLYCERIDES (test code = 2232) 218 MG/DL HDL CHOLESTEROL (test code = 2220) 46 MG/DL CALC LDL CHOL (test code = 2237) 205 MG/DL RISK RATIO LDL/HDL (test code = 4.47 RATIO 2238) HEMOGLOBIN [id number] 00:00:00 Test Item Value Reference Range Interpretation Comments HEMOGLOBIN A1c (test code = 32631) 7.0 % HEMOGLOBIN [id number] 00:00:00 Test Item Value Reference Range Interpretation Comments HEMOGLOBIN A1c (test code = 32047) 7.0 % [id number] 00:00:00 Test Item Value Reference Range Interpretation Comments TSH, THIRD GENERATION (test code 0.565 UIU/ML = 2821) [id number] 00:00:00 Test Item Value Reference Range Interpretation Comments TSH, THIRD GENERATION (test code 0.565 UIU/ML = 2821) COMPREHENSIVE METABOLIC [id number] 00:00:00 Test Item Value Reference Range Interpretation Comments GLUCOSE (test code = 2217) 109 MG/DL BUN (test code = 2208) 25 MG/DL CREATININE (test code = 2214) 0.78 MG/DL eGFR AMER. (test code 98 ML/MIN/1.73 = 59249) eGFR NON- AMER. (test 84 ML/MIN/1.73 code = 20025) CALC BUN/CREAT (test code = 32 RATIO [...] CALC GLOBULIN (test code = 2.7 G/DL 0) CALC A/G RATIO (test code = 1.8 RATIO 2234) BILIRUBIN, TOTAL (test code = <0.2 MG/DL 2206) ALKALINE PHOSPHATASE (test 109 U/L code = 2204) AST (test code = 2218) 18 U/L ALT (test code = 2219) 25 U/L COMPREHENSIVE METABOLIC [id number] 00:00:00 Test Item Value Reference Range Interpretation Comments GLUCOSE (test code = 2217) 109 MG/DL BUN (test code = 2208) 25 MG/DL CREATININE (test code = 2214) 0.78 MG/DL eGFR AMER. (test code 98 ML/MIN/1.73 = 30589) eGFR NON- AMER. (test 84 ML/MIN/1.73 code = 39563) CALC BUN/CREAT (test code = 32 RATIO [...] (test code = 2219) 25 U/L LIPID [id number] 00:00:00 Test Item Value Reference Range Interpretation Comments CHOLESTEROL (test code = 2210) 295 MG/DL TRIGLYCERIDES (test code = 2232) 218 MG/DL HDL CHOLESTEROL (test code = 2220) 46 MG/DL CALC LDL CHOL (test code = 2237) 205 MG/DL RISK RATIO LDL/HDL (test code = 4.47 RATIO 2238) LIPID [id number] 00:00:00 Test Item Value Reference Range Interpretation Comments CHOLESTEROL (test code = 2210) 295 MG/DL TRIGLYCERIDES (test code = 2232) 218 MG/DL HDL CHOLESTEROL (test code = 2220) 46 MG/DL CALC LDL CHOL (test code = 2237) 205 MG/DL RISK RATIO LDL/HDL (test code = 4.47 RATIO 2238) HEMOGLOBIN [id number] 00:00:00 Test Item Value Reference Range Interpretation Comments HEMOGLOBIN A1c (test code = 66799) 7.0 % HEMOGLOBIN [id number] 00:00:00 Test Item Value Reference Range Interpretation Comments HEMOGLOBIN A1c (test code = 80617) 7.0 % HEMOGLOBIN [id number] 00:00:00 Test Item Value Reference Range Interpretation Comments HEMOGLOBIN A1c (test code = 43934) 7.0 % [id number] 00:00:00 Test Item Value Reference Range Interpretation Comments TSH, THIRD GENERATION (test code 0.565 UIU/ML = 2821) [id number] 00:00:00 Test Item Value Reference Range Interpretation Comments TSH, THIRD GENERATION (test code 0.565 UIU/ML = 2821) [id number] 00:00:00 Test Item Value Reference Range Interpretation Comments TSH, THIRD GENERATION (test code 0.565 UIU/ML = 2821) [id number] 00:00:00 Test Item Value Reference Range Interpretation Comments TSH, THIRD GENERATION (test code 0.379 UIU/ML = 2821) [id number] 00:00:00 Test Item Value Reference Range Interpretation Comments TSH, THIRD GENERATION (test code 0.379 UIU/ML = 2821) [id number] 00:00:00 Test Item Value Reference Range Interpretation Comments TSH, THIRD GENERATION (test code 0.379 UIU/ML = 2821) [id number] 00:00:00 Test Item Value Reference Range Interpretation Comments TSH, THIRD GENERATION (test code 0.379 UIU/ML = 2821) [id number] 00:00:00 Test Item Value Reference Range Interpretation Comments TSH, THIRD GENERATION (test code 0.379 UIU/ML = 2821) CULTURE, [id number] 00:00:00 Test Item Value Reference Range Interpretation Comments CULTURE, URINE (test SPECIMEN NUMBER: code = 63883) [id number] CULTURE, [id number] 00:00:00 Test Item Value Reference Range Interpretation Comments CULTURE, URINE (test SPECIMEN NUMBER: code = 75535) [id number] CULTURE, [id number] 00:00:00 Test Item Value Reference Range Interpretation Comments CULTURE, URINE (test SPECIMEN NUMBER: code = 86239) [id number] COMPREHENSIVE METABOLIC [id number] 00:00:00 Test Item Value Reference Range Interpretation Comments GLUCOSE (test code = 2217) 128 MG/DL BUN (test code = 2208) 26 MG/DL CREATININE (test code = 2214) 0.92 MG/DL eGFR AMER. (test code 81 ML/MIN/1.73 = 52078) eGFR NON- AMER. (test 70 ML/MIN/1.73 code = 40135) CALC BUN/CREAT (test code = 28 RATIO [...] code = 2219) 29 U/L ACUTE HEPATITIS [id number] 00:00:00 Test Item Value Reference Range Interpretation Comments HEPATITIS A IgM (test code = NON-REACTIVE 10158) HEPATITIS B CORE IgM (test code NON-REACTIVE = 5471) HEPATITIS B SURF AG (test code = NON-REACTIVE 9667) HEPATITIS C ANTIBODY (test code NON-REACTIVE = 4628) INTERPRETATION HEPATITIS A: (NOTE) (test code = 2552) INTERPRETATION HEPATITIS B: (NOTE) (test code = 75645) INTERPRETATION HEPATITIS C: (NOTE) (test code = 76016) [id number] 00:00:00 Test Item Value Reference Range Interpretation Comments AMYLASE (test code = 2205) 32 U/L [id number] 00:00:00 Test Item Value Reference Range Interpretation Comments LIPASE (test code = 8) 22 U/L [id number] 00:00:00 Test Item Value Reference Range Interpretation Comments LIPASE (test code = 2058) 22 U/L COMPREHENSIVE METABOLIC [id number] 00:00:00 Test Item Value Reference Range Interpretation Comments GLUCOSE (test code = 2217) 128 MG/DL BUN (test code = 2208) 26 MG/DL CREATININE (test code = 2214) 0.92 MG/DL eGFR AMER. (test code 81 ML/MIN/1.73 = 22311) eGFR NON- AMER. (test 70 ML/MIN/1.73 code = 57653) CALC BUN/CREAT (test code = 28 RATIO 2235) SODIUM (test code = 2231) 138 MEQ/L POTASSIUM (test code = 2228) 4.4 MEQ/L CHLORIDE (test code = 2215) 94 MEQ/L CARBON DIOXIDE (test code = 31 MEQ/L 2206) CALCIUM (test code = 2209) 9.5 MG/DL [...] code = 2219) 29 U/L COMPREHENSIVE METABOLIC [id number] 00:00:00 Test Item Value Reference Range Interpretation Comments GLUCOSE (test code = 2217) 128 MG/DL BUN (test code = 2208) 26 MG/DL CREATININE (test code = 2214) 0.92 MG/DL eGFR AMER. (test code 81 ML/MIN/1.73 = 05047) eGFR NON- AMER. (test 70 ML/MIN/1.73 code = 84319) CALC BUN/CREAT (test code = 28 RATIO 2235) SODIUM (test code = 2231) 138 MEQ/L POTASSIUM (test code = 2228) 4.4 MEQ/L CHLORIDE (test code = 2215) 94 MEQ/L CARBON DIOXIDE (test code = 31 MEQ/L 2206) CALCIUM (test code = 2209) 9.5 MG/DL [...] code = 2219) 29 U/L ACUTE HEPATITIS [id number] 00:00:00 Test Item Value Reference Range Interpretation Comments HEPATITIS A IgM (test code = NON-REACTIVE 90217) HEPATITIS B CORE IgM (test code NON-REACTIVE = 4644) HEPATITIS B SURF AG (test code = NON-REACTIVE 2739) HEPATITIS C ANTIBODY (test code NON-REACTIVE = 4675) INTERPRETATION HEPATITIS A: (NOTE) (test code = 2552) INTERPRETATION HEPATITIS B: (NOTE) (test code = 26091) INTERPRETATION HEPATITIS C: (NOTE) (test code = 65930) ACUTE HEPATITIS [id number] 00:00:00 Test Item Value Reference Range Interpretation Comments HEPATITIS A IgM (test code = NON-REACTIVE 07201) HEPATITIS B CORE IgM (test code NON-REACTIVE = 4644) HEPATITIS B SURF AG (test code = NON-REACTIVE 2739) HEPATITIS C ANTIBODY (test code NON-REACTIVE = 4675) INTERPRETATION HEPATITIS A: (NOTE) (test code = 2552) INTERPRETATION HEPATITIS B: (NOTE) (test code = 28565) INTERPRETATION HEPATITIS C: (NOTE) (test code = 15492) [id number] 00:00:00 Test Item Value Reference Range Interpretation Comments AMYLASE (test code = 2205) 32 U/L [id number] 00:00:00 Test Item Value Reference Range Interpretation Comments AMYLASE (test code = 2205) 32 U/L [id number] 00:00:00 Test Item Value Reference Range Interpretation Comments LIPASE (test code = 2058) 22 U/L [id number] 00:00:00 Test Item Value Reference Range Interpretation Comments LIPASE (test code = 2058) 22 U/L [id number] 00:00:00 Test Item Value Reference Range Interpretation Comments LIPASE (test code = 2058) 22 U/L [id number] 00:00:00 Test Item Value Reference Range Interpretation Comments TSH, THIRD GENERATION (test code 4.890 UIU/ML = 2821) [id number] 00:00:00 Test Item Value Reference Range Interpretation Comments TSH, THIRD GENERATION (test code 4.890 UIU/ML = 2821) COMPREHENSIVE METABOLIC [id number] 00:00:00 Test Item Value Reference Range Interpretation Comments GLUCOSE (test code = 2217) 121 MG/DL BUN (test code = 2208) 40 MG/DL CREATININE (test code = 2214) 1.48 MG/DL eGFR AMER. (test code 45 ML/MIN/1.73 = 94616) eGFR NON- AMER. (test 39 ML/MIN/1.73 code = 42140) CALC BUN/CREAT (test code = 27 RATIO [...] CALC GLOBULIN (test code = 2.8 G/DL 2239) CALC A/G RATIO (test code = 1.9 RATIO 2233) BILIRUBIN, TOTAL (test code = 0.2 MG/DL 2206) ALKALINE PHOSPHATASE (test 99 U/L code = 2204) AST (test code = 2218) 15 U/L ALT (test code = 2219) 20 U/L [id number] 00:00:00 Test Item Value Reference Range Interpretation Comments TSH, THIRD GENERATION (test code 4.890 UIU/ML = 2821) [id number] 00:00:00 Test Item Value Reference Range Interpretation Comments TSH, THIRD GENERATION (test code 4.890 UIU/ML = 2821) [id number] 00:00:00 Test Item Value Reference Range Interpretation Comments TSH, THIRD GENERATION (test code 4.890 UIU/ML = 2821) COMPREHENSIVE METABOLIC [id number] 00:00:00 Test Item Value Reference Range Interpretation Comments GLUCOSE (test code = 2217) 121 MG/DL BUN (test code = 2208) 40 MG/DL CREATININE (test code = 2214) 1.48 MG/DL eGFR AMER. (test code 45 ML/MIN/1.73 = 28388) eGFR NON- AMER. (test 39 ML/MIN/1.73 code = 37703) CALC BUN/CREAT (test code = 27 RATIO 2235) SODIUM (test code = 2231) 143 MEQ/L POTASSIUM (test code = 2228) 5.3 MEQ/L CHLORIDE (test code = 2215) 100 MEQ/L CARBON DIOXIDE (test code = 27 MEQ/L 2206) CALCIUM (test code = 2209) 9.8 MG/DL PROTEIN, TOTAL (test code = 8.1 G/DL 2229) ALBUMIN (test code = 2201) 5.3 G/DL CALC GLOBULIN (test code = 2.8 G/DL 2240) CALC A/G RATIO (test code = 1.9 RATIO 2234) BILIRUBIN, TOTAL (test code = 0.2 MG/DL 2207) ALKALINE PHOSPHATASE (test 99 U/L code = 2204) AST (test code = 2218) 15 U/L ALT (test code = 2219) 20 U/L COMPREHENSIVE METABOLIC [id number] 00:00:00 Test Item Value Reference Range Interpretation Comments GLUCOSE (test code = 2217) 121 MG/DL BUN (test code = 2208) 40 MG/DL CREATININE (test code = 2214) 1.48 MG/DL eGFR AMER. (test code 45 ML/MIN/1.73 = 01462) eGFR NON- AMER. (test 39 ML/MIN/1.73 code = 53177) CALC BUN/CREAT (test code = 27 RATIO [...] = 0.2 MG/DL 2207) ALKALINE PHOSPHATASE (test 99 U/L code = 2204) AST (test code = 2218) 15 U/L ALT (test code = 2219) 20 U/L LIPID [id number] 00:00:00 Test Item Value Reference Range Interpretation Comments CHOLESTEROL (test code = 2210) 261 MG/DL TRIGLYCERIDES (test code = 2232) 165 MG/DL HDL CHOLESTEROL (test code = 2220) 58 MG/DL CALC LDL CHOL (test code = 2237) 170 MG/DL RISK RATIO LDL/HDL (test code = 2.93 RATIO 2238) CBC W/AUTO [id number] 00:00:00 Test Item Value Reference Range Interpretation [...] code = 1015) 378 K/UL CBC W/AUTO [id number] 00:00:00 Test Item Value Reference Range Interpretation [...] (test code = 1015) 378 K/UL HEMOGLOBIN [id number] 00:00:00 Test Item Value Reference Range Interpretation Comments HEMOGLOBIN A1c (test code = 14359) 6.4 % HEMOGLOBIN [id number] 00:00:00 Test Item Value Reference Range Interpretation Comments HEMOGLOBIN A1c (test code = 47465) 6.4 % [id number] 00:00:00 Test Item Value Reference Range Interpretation Comments TSH (test code = 2821) 5.290 UIU/ML [id number] 00:00:00 Test Item Value Reference Range Interpretation Comments TSH (test code = 2821) 5.290 UIU/ML LIPID [id number] 00:00:00 Test Item Value Reference Range Interpretation Comments CHOLESTEROL (test code = 2210) 261 MG/DL TRIGLYCERIDES (test code = 2232) 165 MG/DL HDL CHOLESTEROL (test code = 2220) 58 MG/DL CALC LDL CHOL (test code = 2237) 170 MG/DL RISK RATIO LDL/HDL (test code = 2.93 RATIO 2238) LIPID [id number] 00:00:00 Test Item Value Reference Range Interpretation Comments CHOLESTEROL (test code = 2210) 261 MG/DL TRIGLYCERIDES (test code = 2232) 165 MG/DL HDL CHOLESTEROL (test code = 2220) 58 MG/DL CALC LDL CHOL (test code = 2237) 170 MG/DL RISK RATIO LDL/HDL (test code = 2.93 RATIO 2238) CBC W/AUTO [id number] 00:00:00 Test Item Value Reference Range Interpretation [...] code = 1015) 378 K/UL CBC W/AUTO [id number] 00:00:00 Test Item Value Reference Range Interpretation [...] code = 1015) 378 K/UL CBC W/AUTO [id number] 00:00:00 Test Item Value Reference Range Interpretation [...] (test code = 1015) 378 K/UL HEMOGLOBIN [id number] 00:00:00 Test Item Value Reference Range Interpretation Comments HEMOGLOBIN A1c (test code = 48063) 6.4 % HEMOGLOBIN [id number] 00:00:00 Test Item Value Reference Range Interpretation Comments HEMOGLOBIN A1c (test code = 16360) 6.4 % HEMOGLOBIN [id number] 00:00:00 Test Item Value Reference Range Interpretation Comments HEMOGLOBIN A1c (test code = 08058) 6.4 % [id number] 00:00:00 Test Item Value Reference Range Interpretation Comments TSH (test code = 2821) 5.290 UIU/ML [id number] 00:00:00 Test Item Value Reference Range Interpretation Comments TSH (test code = 2821) 5.290 UIU/ML [id number] 00:00:00 Test Item Value Reference Range Interpretation [...] code = 2821) 1.030 UIU/ML COMPREHENSIVE METABOLIC [id number] 00:00:00 Test Item Value Reference Range Interpretation Comments GLUCOSE (test code = 2217) 106 MG/DL BUN (test code = 2208) 23 MG/DL CREATININE (test code = 2214) 0.66 MG/DL eGFR AMER. (test code 114 ML/MIN/1.73 = 02211) eGFR NON- AMER. (test 99 ML/MIN/1.73 code = 43102) CALC BUN/CREAT (test code = 35 RATIO [...] code = 2821) 0.335 UIU/ML COMPREHENSIVE METABOLIC [id number] 00:00:00 Test Item Value Reference Range Interpretation Comments GLUCOSE (test code = 2217) 106 MG/DL BUN (test code = 2208) 23 MG/DL CREATININE (test code = 2214) 0.66 MG/DL eGFR AMER. (test code 114 ML/MIN/1.73 = 55220) eGFR NON- AMER. (test 99 ML/MIN/1.73 code = 24600) CALC BUN/CREAT (test code = 35 RATIO [...] code = 2219) 31 U/L COMPREHENSIVE METABOLIC [id number] 00:00:00 Test Item Value Reference Range Interpretation Comments GLUCOSE (test code = 2217) 106 MG/DL BUN (test code = 2208) 23 MG/DL CREATININE (test code = 2214) 0.66 MG/DL eGFR AMER. (test code 114 ML/MIN/1.73 = 74791) eGFR NON- AMER. (test 99 ML/MIN/1.73 code = 58678) CALC BUN/CREAT (test code = 35 RATIO 2235) SODIUM (test code = 2231) 138 MEQ/L POTASSIUM (test code = 2228) 5.1 MEQ/L CHLORIDE (test code = 2215) 96 MEQ/L CARBON DIOXIDE (test code = 27 MEQ/L 2205) CALCIUM (test code = 2209) 9.6 MG/DL PROTEIN, TOTAL (test code = 7.1 G/DL 2228) ALBUMIN (test code = 220) [...] TSH (test code = 2821) 0.335 UIU/ML THYROID II PROFILE (T3U, T4, T7, TSH)[id number] 00:00:00 Test Item Value Reference Range Interpretation Comments T3 UPTAKE (test code = 2817) 31.6 % T4 (THYROXINE) (test code = 5.4 UG/DL 2819) CALCULATED T7 (FTI) (test code = 1.71 2820) TSH (test code = 2821) 0.335 UIU/ML COMPREHENSIVE METABOLIC [id number] 00:00:00 Test Item Value Reference Range Interpretation Comments GLUCOSE (test code = 2217) 103 MG/DL BUN (test code = 2208) 15 MG/DL CREATININE (test code = 2214) 0.77 MG/DL eGFR AMER. (test code 101 ML/MIN/1.73 = 36996) eGFR NON- AMER. (test 87 ML/MIN/1.73 code = 24542) CALC BUN/CREAT (test code = 19 RATIO [...] ALKALINE PHOSPHATASE (test 83 U/L code = 220) AST (test code = 2218) 15 U/L ALT (test code = 2219) 24 U/L THYROID II PROFILE (T3U, T4, T7, TSH)[id number] 00:00:00 Test Item Value Reference Range Interpretation Comments T3 UPTAKE (test code = 2817) 35.1 % T4 (THYROXINE) (test code = 3.9 UG/DL 2818) CALCULATED T7 (FTI) (test code = 1.37 2820) TSH (test code = 2821) 0.424 UIU/ML COMPREHENSIVE METABOLIC [id number] 00:00:00 Test Item Value Reference Range Interpretation Comments GLUCOSE (test code = 2217) 103 MG/DL BUN (test code = 2208) 15 MG/DL CREATININE (test code = 2214) 0.77 MG/DL eGFR AMER. (test code 101 ML/MIN/1.73 = 16378) eGFR NON- AMER. (test 87 ML/MIN/1.73 code = 36305) CALC BUN/CREAT (test code = 19 RATIO 2235) SODIUM (test code = 2231) 136 MEQ/L POTASSIUM (test code = 2228) 4.7 MEQ/L CHLORIDE (test code = 2215) 94 MEQ/L CARBON DIOXIDE (test code = 27 MEQ/L 2205) CALCIUM (test code = 2209) 9.4 MG/DL PROTEIN, TOTAL (test code = 6.4 G/DL 222) ALBUMIN (test code = 2201) 4.3 G/DL CALC GLOBULIN (test code = 2.1 G/DL 2240) CALC A/G RATIO (test code = 2.0 RATIO 2234) BILIRUBIN, TOTAL (test code = 0.1 MG/DL 220) ALKALINE PHOSPHATASE (test 83 U/L code = 2204) AST (test code = 2218) 15 U/L ALT (test code = 2219) 24 U/L COMPREHENSIVE METABOLIC [id number] 00:00:00 Test Item Value Reference Range Interpretation Comments GLUCOSE (test code = 2217) 103 MG/DL BUN (test code = 2208) 15 MG/DL CREATININE (test code = 2214) 0.77 MG/DL eGFR AMER. (test code 101 ML/MIN/1.73 = 61840) eGFR NON- AMER. (test 87 ML/MIN/1.73 code = 11611) CALC BUN/CREAT (test code = 19 RATIO [...] BILIRUBIN, TOTAL (test code = 0.1 MG/DL 2207) ALKALINE PHOSPHATASE (test 83 U/L code = 2204) AST (test code = 2218) 15 U/L ALT (test code = 2219) 24 U/L THYROID II PROFILE (T3U, T4, T7, TSH)2016-08-22 00:00:00 Test Item Value Reference Range Interpretation Comments T3 UPTAKE (test code = 2817) 35.1 % T4 (THYROXINE) (test code = 3.9 UG/DL 281) CALCULATED T7 (FTI) (test code = 1.37 0) TSH (test code = 2821) 0.424 UIU/ML THYROID II PROFILE (T3U, T4, T7, TSH)2016-08-22 00:00:00 Test Item Value Reference Range Interpretation Comments T3 UPTAKE (test code = 2817) 35.1 % T4 (THYROXINE) (test code = 3.9 UG/DL 2819) CALCULATED T7 (FTI) (test code = 1.37 2820) TSH (test code = 2821) 0.424 UIU/ML CULTURE, [id number] 00:00:00 Test Item Value Reference Range Interpretation Comments CULTURE, URINE (test SPECIMEN NUMBER: code = 30971) [id number] CULTURE, [id number] 00:00:00 Test Item Value Reference Range Interpretation Comments CULTURE, URINE (test SPECIMEN NUMBER: code = 48090) [id number] CULTURE, [id number] 00:00:00 Test Item Value Reference Range Interpretation Comments CULTURE, URINE (test SPECIMEN NUMBER: code = 61748) [id number] CULTURE, [id number] 00:00:00 Test Item Value Reference Range Interpretation Comments CULTURE, URINE (test SPECIMEN NUMBER: code = 63403) [id number] CULTURE, [id number] 00:00:00 Test Item Value Reference Range Interpretation Comments CULTURE, URINE (test SPECIMEN NUMBER: code = 76742) [id number] CULTURE, [id number] 00:00:00 Test Item Value Reference Range Interpretation Comments CULTURE, URINE (test SPECIMEN NUMBER: code = 74987) [id number]
--- NOTE | 2021-12-25 19:25 | ER ---
Nurse's Notes [facility] Name: Jaimie Amanda Age: 61 yrs Sex: Female : 1960 Arrival Date: 12/25/2021 Time: 18:22 Bed IW2 Private MD: Diagnosis: Presentation: 12/25 18:55 Chief complaint: Patient states: RUQ pain X 2 days. Coronavirus screen: At this time, ld1 the client does not indicate any symptoms associated with coronavirus-19. Ebola Screen: No symptoms or risks identified at this time. Initial Sepsis Screen: Does the patient meet any 2 criteria? No. Patient's initial sepsis screen is negative. Does the patient have a suspected source of infection? No. Patient's initial sepsis screen is negative. Risk Assessment: Do you want to hurt yourself or someone else? Patient reports no desire to harm self or others. Onset of symptoms was December 25, 2021. 18:55 Method Of Arrival: Ambulatory ld1 18:55 Acuity: ZHEN 3 ld1 Triage Assessment: 18:56 General: Appears in no apparent distress. comfortable, Behavior is calm, cooperative, ld1 appropriate for age. Pain: Complains of pain in right upper quadrant Pain does not radiate. Pain currently is 8 out of 10 on a pain scale. Quality of pain is described as throbbing. EENT: No signs and/or symptoms were reported regarding the EENT system. Neuro: Level of Consciousness is awake, alert, obeys commands, Oriented to person, place, time, situation. Cardiovascular: Capillary refill < 3 seconds Patient's skin is warm and dry. Respiratory: Airway is patent Respiratory effort is even, unlabored. GI: Abdomen is flat, non-distended, Reports upper abdominal pain. : No signs and/or symptoms were reported regarding the genitourinary system. Derm: No signs and/or symptoms reported regarding the dermatologic system. Musculoskeletal: No signs and/or symptoms reported regarding the musculoskeletal system. Historical: - Allergies: 18:56 No Known Allergies; ld1 - PMHx: 18:56 Anxiety; Hypertensive disorder; Hypothyroidism; low NA; ld1 - PSHx: 18:56 Thyroidectomy; ld1 - Immunization history:: Adult Immunizations. - Social history:: Smoking status: Patient reports the use of cigarette tobacco products, smokes one pack cigarettes per day. Patient/guardian denies using alcohol. Vital Signs: 18:55 BP 105 / 66; Pulse 65; Resp 18; Temp 98.1(O); Pulse Ox 99% on R/A; Weight 70.31 kg; ld1 Height 5 ft. 7 in. (170.18 cm); Pain 9/10; 18:55 Body Mass Index 24.28 (70.31 kg, 170.18 cm) ld1 ED Course: 18:22 Patient arrived in ED. am2 18:56 Triage completed. ld1 18:56 Arm band placed on right wrist. ld1 Administered Medications: No medications were administered Outcome: 19:24 Patient left the ED. ld1 Signatures: Elisa Gregory am2 Maritza Smith, RN RN ld1
[2021-12-25 19:38] VITALS: BP 105/66; TEMP 98.1; O2SAT 99
== END 2021-12-25 19:24 | disposition left against medical advice (07) ==
LOC: ER 18:20
DX: Z02.9 Encounter for administrative examinations, unspecified (principal)
CPT/HCPCS: 99281

== ENCOUNTER 2021-12-26 09:34 | Inpatient (IN) | payer OTHER ==
--- OUTSIDE RECORDS SUMMARY | 2021-12-26 09:43 | XMS REPORT | Continuity of Care Document ---
:1960 Author Organization [facility] t Address [address] [place] [address] Care Team Providers Name Role Phone Sharpless Primary Care Physician MATT SIMPSON Attending Clinician Unavailable MATT SIMPSON Attending Clinician Unavailable Doctor Unassigned, [place] Attending Clinician Unavailable WALLY KRISHNAMURTHY Attending Clinician Unavailable Gramm Natacha CLARK Attending Clinician Payers Payer Name Policy Type Policy Number Effective Date Expiration Date Sarina castelan FORMERLY [facility] [id number] 2017 00:00:00 PLUS Problems This patient has [...] s TRANSDER 5- ity of MAL 00:00: [place] 00 [facility] ACETAMIN DRUG Active Other-Cmnt Univ ers OPHEN INGREDI 07-27 ity of 00:00: [place] [address] Medical Branch Hmg-Coa Propensi Inactiv Reductas ty to e 2-28 e adverse 00:00: Inhibito reaction 00 rs to drug Nitrogly Propensi Active 2017-03 cerin ty to 1-08 adverse 00:00: reaction 00 to drug Social History Social Habit Start Date Stop Date Quantity Comments Source Alcohol intake 2016-05-01 2016-05-01 Current [facility] es 00:00:00 00:00:00 non-drinker of Medical nter alcohol (finding) Sex Ass[birth year] At [birth year] [facility] 00:00:00 00:00:00 [facility] Smoking Status Start Date Stop Date Source Current every day smoker 2016-05-01 00:00:00 [facility] Medications Ordered Filled Start Stop Current [...] 600 mg 5-30 tablet 00:00: 00 mirtazapine 2016- No 1mg 30 mg 5-30 tablet 00:00: 00 oxcarbazepi 0 No 1mg ne 600 mg 5-30 tablet 00:00: 00 baclofen 10 No 1mg mg tablet 5-30 00:00: 00 levothyroxi No 1mcg ne 150 mcg 5-30 tablet 00:00: 00 hydroxyzine No 1mg pamoate 50 5-30 mg capsule 00:00: 00 PARoxetine 2016- Yes 40mg QD Take [address] (PAXIL) 40 2-23 [facility] 10:23: [facility]. [facility] OXcarbazepi 2016-0 Yes 600mg Q.[id number] Take [address] [facility] [address] ne 2-23 [id number] mg by [facility] (TRILEPTAL) 10:23: 3D mouth 3 Med ical 600 MG 59 (three) Center tablet times daily. PARoxetine 2017-0 Yes 40mg QD Take [address] (PAXIL) 40 2-23 [facility] tablet 10:23: nightly. [facility] OXcarbazepi 2016-0 Yes 600mg Q.[id number] Take [address] ne 2-23 [id number] [facility] (TRILEPTAL) 10:23: 3D mouth 3 Med ical 600 MG 59 (three) Center tablet times daily. PARoxetine 2017-0 Yes 40mg QD Take [address] (PAXIL) 40 2-23 [facility] tablet 10:23: nightly. [facility] OXcarbazepi 2017-0 Yes 600mg Q.91605614 Take [address] [address] ne 2-23 [id number] [facility] (TRILEPTAL) 10:23: 3D mouth 3 Med ical 600 MG 59 (three) Center tablet times daily. PARoxetine 2017-0 Yes 40mg QD Take [address] (PAXIL) 40 2-23 [facility] tablet 10:23: nightly. [facility] OXcarbazepi 2017-0 Yes 600mg Q.01253429 Take [address] ne 2-23 [id number] [facility] (TRILEPTAL) 10:23: 3D mouth 3 Med ical 600 MG 59 (three) Center tablet times daily. OXcarbazepi 2017-0 Yes 600mg Q.71976936 Take [address] ne 2-23 1404920542 [facility] by [facility] (TRILEPTAL) 10:23: 3D mouth 3 Med ical 600 MG 59 (three) Center tablet times daily. PARoxetine 2017-0 Yes 40mg QD Take [address] (PAXIL) 40 2-23 by [facility] tablet 10:23: nightly. [facility] LORazepam 2017-0 Yes 1mg Take [...] Goal Plan of Care Note [code = 53971-6] Goal Plan of Care Note [code = 96048-0] Goal Plan of Care Note [code = 56731-6] Goal Plan of Care Note [code = 47656-7] Goal Plan of Care Note [code = 19783-8] Goal Plan of Care Note [code = 30632-8] Goal Plan of Care Note [code = 38383-9] Goal Plan of Care Note [code = 66974-8] Goal Plan of Care Note [code = 26177-8] Goal Plan of Care Note [code = 08205-2] Goal Plan of Care Note [code = 09430-1] Goal Plan of Care Note [code = 38972-6] Goal Plan of Care Note [code = 66638-9] Goal Plan of Care Note [code = 97118-0] Goal Plan of Care Note [code = 46345-8] Goal Plan of Care Note [code = 00911-4] Goal Plan of Care Note [code = 92362-0] Goal Plan of Care Note [code = 08657-8] Goal Plan of Care Note [code = 92811-5] Goal Plan of Care Note [code = 24998-1] Goal Plan of Care Note [code = 97711-5] Goal Plan of Care Note [code = 82023-3] Goal Plan of Care Note [code = 34462-2] Goal Plan of Care Note [code = 09405-8] Goal Plan of Care Note [code = 15984-3] Goal Plan of Care Note [code = 16598-8] Goal Plan of Care Note [code = 96036-7] Goal Plan of Care Note [code = 29283-1] Goal Plan of Care Note [code = 97078-9] Goal Plan of Care Note [code = 13273-6] Goal Plan of Care Note [code = 11749-8] Goal Plan of Care Note [code = 55021-8] Goal Plan of Care Note [code = 86601-9] Goal Plan of Care Note [code = 07611-1] Goal Plan of Care Note [code = 09873-1] Goal Plan of Care Note [code = 02492-5] Goal Plan of Care Note [code = 58539-8] Goal Plan of Care Note [code = 17152-2] Goal Plan of Care Note [code = 21616-2] Goal Plan of Care Note [code = 23464-6] Goal Plan of Care Note [code = 69872-6] Goal Plan of Care Note [code = 54730-4] Goal Plan of Care Note [code = 08767-5] Goal Plan of Care Note [code = 13385-0] Goal Plan of Care Note [code = 29564-7] Goal Plan of Care Note [code = 42202-7] Goal Plan of Care Note [code = 06199-6] Goal Plan of Care Note [code = 62221-2] Goal Plan of Care Note [code = 66958-5] Goal Plan of Care Note [code = 15310-1] Goal Plan of Care Note [code = 58154-1] Goal Plan of Care Note [code = 29455-4] Goal Plan of Care Note [code = 78972-3] Goal Plan of Care Note [code = 78909-7] Goal Plan of Care Note [code = 02577-1] Goal Plan of Care Note [code = 92193-3] Goal Plan of Care Note [code = 81986-3] Goal Plan of Care Note [code = 67178-1] Goal Plan of Care Note [code = 82654-1] Goal Plan of Care Note [code = 69581-1] Goal Plan of Care Note [code = 42527-0] Goal Plan of Care Note [code = 59775-6] Goal Plan of Care Note [code = 37758-5] Goal Plan of Care Note [code = 42501-8] Goal Plan of Care Note [code = 67413-4] Goal Plan of Care Note [code = 84518-2] Goal Plan of Care Note [code = 87278-7] Goal Plan of Care Note [code = 54169-4] Goal Plan of Care Note [code = 08219-4] Goal Plan of Care Note [code = 57414-8] Goal Plan of Care Note [code = 29304-6] Goal Plan of Care Note [code = 49619-4] Goal Plan of Care Note [code = 79771-9] Goal Plan of Care Note [code = 35215-3] Goal Plan of Care Note [code = 59994-9] Goal Plan of Care Note [code = 76515-6] Goal Plan of Care Note [code = 76818-2] Goal Plan of Care Note [code = 72688-8] Goal Plan of Care Note [code = 90795-3] Goal Plan of Care Note [code = 10788-1] Goal Plan of Care Note [code = 76137-0] Goal Plan of Care Note [code = 60838-1] Goal Plan of Care Note [code = 38142-4] Goal Plan of Care Note [code = 58441-5] Goal Plan of Care Note [code = 88828-4] Goal Plan of Care Note [code = 35728-8] Goal Plan of Care Note [code = 54822-8] Goal Plan of Care Note [code = 04941-7] Goal Plan of Care Note [code = 90811-3] Goal Plan of Care Note [code = 74226-0] Goal Plan of Care Note [code = 81937-2] Goal Plan of Care Note [code = 80896-1] Goal Plan of Care Note [code = 45439-7] Goal Plan of Care Note [code = 37124-7] Goal Plan of Care Note [code = 53843-2] Goal Plan of Care Note [code = 08157-9] Goal Plan of Care Note [code = 15294-7] Goal Plan of Care Note [code = 12890-0] Goal Plan of Care Note [code = 38891-5] Goal Plan of Care Note [code = 02110-8] Goal Plan of Care Note [code = 55466-5] Goal Plan of Care Note [code = 46531-9] Encounters Start End Encounter Admission Attending Care Care Encounter Source Date/Time Date/Time Type Type Clinicians Facility Department ID 2021-06-01 Outpatient [facility] [id number] [place] 01:36:29 [id number] [facility] 2021-12-19 2021-12-19 Outpatient [facility] SFA [id number] Cristian 16:11:31 16:11:31 1013 F Jerman 2021-12-19 2021-12-19 Outpatient [id number] 00:00:00 00:00:00 Visit [id number] 770-441f-a -adae-62b amelia-62bace ysylg11ud fd81af 2021-09-17 2021-09-17 Outpatient lge3vwvh- [id number] o8gbfu-5 00:00:00 00:00:00 Visit 935a-4f50 35a-4f50-b -f34g-y9u 77d-c2ba85 [id number] 2020-08-03 2020-08-03 Outpatient MATT VÁSQUEZ [facility] [id number] Univers 10:00:00 10:00:00 MATT SIMPSON [facility] 2020-07-25 2020-07-25 [facility] Doctor FISH [id number] 00:00:00 00:00:00 Only Unassigned, BK 350.1.13.10 [facility] 4.2.7.2.686 [id number] 2019-09-26 2019-09-26 Outpatient R RAGHU, [facility] [id number] Univers 16:00:00 16:00:00 WALLY pat [facility] 2018-10-21 2018-10-21 Telephone Gramm, [facility] [id number] 00:00:00 00:00:00 Natacha Nguyen 350.1.13.10 Ade 4.2.7.2.686 [place] [id number] [facility] [address] Building Results Test Description Test Time Test Comments Results Result Comments Source TSH, THIRD GENERATION 2021-06-27 05:15:49 Test Item Value Reference Range Interpretation Comme nts TSH, THIRD GENERATION (test code = 2821) 2.080 UIU/ML 0.400-4.100 HEMOGLOBIN [id number] 03:46:00 Test Item Value Reference Range Interpretation Comments HEMOGLOBIN A1c (test 6.6 % 4.2-5.6 H AMERIC AN DIABETES code = 41584) ASSOCIATION IDELINES FOR HGB A1C: PREDIABETES/INC REASED [...] TESTING PER FORMED ATCLINICAL PATH [facility]LOGY [facility], [facility]. [address] [place] [address] 2633 LABORATORY DIRE CTOR: DIANA RUSS M.D. CLIA NUMBER [id number] [place] [id number] LIPID [id number] 02:59:52 Test Item Value Reference Range Interpretation [...] MOREINFORMATION , SEE CLIENT ANNOUNCE MENT AT [email or web address] RISK RATIO LDL/HDL 4.02 RATIO <3.22 H (test code = 2238) [id number] 00:00:00 Test Item Value Reference Range Interpretation Comments TSH, THIRD GENERATION (test code 2.080 UIU/ML = 2821) [id number] 00:00:00 Test Item Value Reference Range Interpretation Comments TSH, THIRD GENERATION (test code 2.080 UIU/ML = 2821) LIPID [id number] 00:00:00 Test Item Value Reference Range Interpretation Comments CHOLESTEROL (test code = 2210) 292 MG/DL TRIGLYCERIDES (test code = 2232) 184 MG/DL HDL CHOLESTEROL (test code = 2220) 51 MG/DL CALC LDL CHOL (test code = 2237) 205 MG/DL RISK RATIO LDL/HDL (test code = 4.02 RATIO 2238) HEMOGLOBIN [id number] 00:00:00 Test Item Value Reference Range Interpretation Comments HEMOGLOBIN A1c (test code = 86643) 6.6 % HEMOGLOBIN [id number] 00:00:00 Test Item Value Reference Range Interpretation Comments HEMOGLOBIN A1c (test code = 50670) 6.6 % [id number] 00:00:00 Test Item Value Reference Range Interpretation Comments TSH, THIRD GENERATION (test code 2.080 UIU/ML = 2821) [id number] 00:00:00 Test Item Value Reference Range Interpretation Comments TSH, THIRD GENERATION (test code 2.080 UIU/ML = 2821) [id number] 00:00:00 Test Item Value Reference Range Interpretation Comments TSH, THIRD GENERATION (test code 2.080 UIU/ML = 2821) LIPID [id number] 00:00:00 Test Item Value Reference Range Interpretation Comments CHOLESTEROL (test code = 2210) 292 MG/DL TRIGLYCERIDES (test code = 2232) 184 MG/DL HDL CHOLESTEROL (test code = 2220) 51 MG/DL CALC LDL CHOL (test code = 2237) 205 MG/DL RISK RATIO LDL/HDL (test code = 4.02 RATIO 2238) LIPID [id number] 00:00:00 Test Item Value Reference Range Interpretation Comments CHOLESTEROL (test code = 2210) 292 MG/DL TRIGLYCERIDES (test code = 2232) 184 MG/DL HDL CHOLESTEROL (test code = 2220) 51 MG/DL CALC LDL CHOL (test code = 2237) 205 MG/DL RISK RATIO LDL/HDL (test code = 4.02 RATIO 2238) HEMOGLOBIN [id number] 00:00:00 Test Item Value Reference Range Interpretation Comments HEMOGLOBIN A1c (test code = 53091) 6.6 % HEMOGLOBIN [id number] 00:00:00 Test Item Value Reference Range Interpretation Comments HEMOGLOBIN A1c (test code = 01683) 6.6 % HEMOGLOBIN [id number] 00:00:00 Test Item Value Reference Range Interpretation Comments HEMOGLOBIN A1c (test code = 12151) 6.6 % HEMOGLOBIN [id number] 00:00:00 Test Item Value Reference Range Interpretation Comments HEMOGLOBIN A1c (test code = 33966) 6.8 % HEMOGLOBIN [id number] 00:00:00 Test Item Value Reference Range Interpretation Comments HEMOGLOBIN A1c (test code = 37110) 6.8 % LIPID [id number] 00:00:00 Test Item Value Reference Range Interpretation Comments CHOLESTEROL (test code = 2210) 303 MG/DL TRIGLYCERIDES (test code = 2232) 191 MG/DL HDL CHOLESTEROL (test code = 2220) 61 MG/DL CALC LDL CHOL (test code = 2237) 205 MG/DL RISK RATIO LDL/HDL (test code = 3.36 RATIO 2238) [id number] 00:00:00 Test Item Value Reference Range Interpretation Comments TSH, THIRD GENERATION (test code 0.769 UIU/ML = 2821) [id number] 00:00:00 Test Item Value Reference Range Interpretation Comments TSH, THIRD GENERATION (test code 0.769 UIU/ML = 2821) COMPREHENSIVE METABOLIC [id number] 00:00:00 Test Item Value Reference Range Interpretation Comments GLUCOSE (test code = 2217) 131 MG/DL BUN (test code = 2208) 13 MG/DL CREATININE (test code = 2214) 0.65 MG/DL eGFR AMER. (test code 113 ML/MIN/1.73 = 48160) eGFR NON- AMER. (test 97 ML/MIN/1.73 code = 70563) CALC BUN/CREAT (test code = 20 RATIO [...] (test code = 2219) 23 U/L HEMOGLOBIN [id number] 00:00:00 Test Item Value Reference Range Interpretation Comments HEMOGLOBIN A1c (test code = 55365) 6.8 % HEMOGLOBIN [id number] 00:00:00 Test Item Value Reference Range Interpretation Comments HEMOGLOBIN A1c (test code = 55897) 6.8 % HEMOGLOBIN [id number] 00:00:00 Test Item Value Reference Range Interpretation Comments HEMOGLOBIN A1c (test code = 38446) 6.8 % LIPID [id number] 00:00:00 Test Item Value Reference Range Interpretation Comments CHOLESTEROL (test code = 2210) 303 MG/DL TRIGLYCERIDES (test code = 2232) 191 MG/DL HDL CHOLESTEROL (test code = 2220) 61 MG/DL CALC LDL CHOL (test code = 2237) 205 MG/DL RISK RATIO LDL/HDL (test code = 3.36 RATIO 2238) LIPID [id number] 00:00:00 Test Item Value Reference Range Interpretation Comments CHOLESTEROL (test code = 2210) 303 MG/DL TRIGLYCERIDES (test code = 2232) 191 MG/DL HDL CHOLESTEROL (test code = 2220) 61 MG/DL CALC LDL CHOL (test code = 2237) 205 MG/DL RISK RATIO LDL/HDL (test code = 3.36 RATIO 2238) [id number] 00:00:00 Test Item Value Reference Range Interpretation Comments TSH, THIRD GENERATION (test code 0.769 UIU/ML = 2821) [id number] 00:00:00 Test Item Value Reference Range Interpretation Comments TSH, THIRD GENERATION (test code 0.769 UIU/ML = 2821) [id number] 00:00:00 Test Item Value Reference Range Interpretation Comments TSH, THIRD GENERATION (test code 0.769 UIU/ML = 2821) COMPREHENSIVE METABOLIC [id number] 00:00:00 Test Item Value Reference Range Interpretation Comments GLUCOSE (test code = 2217) 131 MG/DL BUN (test code = 2208) 13 MG/DL CREATININE (test code = 2214) 0.65 MG/DL eGFR AMER. (test code 113 ML/MIN/1.73 = 51393) eGFR NON- AMER. (test 97 ML/MIN/1.73 code = 12125) CALC BUN/CREAT (test code = 20 RATIO [...] code = 2219) 23 U/L COMPREHENSIVE METABOLIC [id number] 00:00:00 Test Item Value Reference Range Interpretation Comments GLUCOSE (test code = 2217) 131 MG/DL BUN (test code = 2208) 13 MG/DL CREATININE (test code = 2214) 0.65 MG/DL eGFR AMER. (test code 113 ML/MIN/1.73 = 50084) eGFR NON- AMER. (test 97 ML/MIN/1.73 code = 01774) CALC BUN/CREAT (test code = 20 RATIO [...] (test code = 2219) 23 U/L HEMOGLOBIN [id number] 00:00:00 Test Item Value Reference Range Interpretation Comments HEMOGLOBIN A1c (test code = 35992) 6.6 % HEMOGLOBIN [id number] 00:00:00 Test Item Value Reference Range Interpretation Comments HEMOGLOBIN A1c (test code = 15988) 6.6 % LIPID [id number] 00:00:00 Test Item Value Reference Range Interpretation Comments CHOLESTEROL (test code = 2210) 261 MG/DL TRIGLYCERIDES (test code = 2232) 159 MG/DL HDL CHOLESTEROL (test code = 2220) 82 MG/DL CALC LDL CHOL (test code = 2237) 150 MG/DL RISK RATIO LDL/HDL (test code = 1.83 RATIO 2238) COMPREHENSIVE METABOLIC [id number] 00:00:00 Test Item Value Reference Range Interpretation Comments GLUCOSE (test code = 2217) 144 MG/DL BUN (test code = 2208) 15 MG/DL CREATININE (test code = 2214) 0.85 MG/DL eGFR AMER. (test code 87 ML/MIN/1.73 = 89383) eGFR NON- AMER. (test 75 ML/MIN/1.73 code = 87864) CALC BUN/CREAT (test code = 18 RATIO [...] ALKALINE PHOSPHATASE (test 117 U/L code = 220) AST (test code = 2218) 27 U/L ALT (test code = 2219) 50 U/L THYROID II PROFILE (T3U, T4, T7, TSH)2020-05-23 00:00:00 Test Item Value Reference Range Interpretation Comments T-UPTAKE (test code = 2817) 30.2 % THYROX. BIND. CAPAC. (test code 1.1 = 42888) T4 (THYROXINE) (test code = 4.3 UG/DL 2819) CORRECTED T4 (FTI) (test code = 3.9 UG/DL 2820) TSH, THIRD GENERATION (test 18.900 UIU/ML code = 2821) HEMOGLOBIN [id number] 00:00:00 Test Item Value Reference Range Interpretation Comments HEMOGLOBIN A1c (test code = 67631) 6.6 % HEMOGLOBIN [id number] 00:00:00 Test Item Value Reference Range Interpretation Comments HEMOGLOBIN A1c (test code = 68250) 6.6 % HEMOGLOBIN [id number] 00:00:00 Test Item Value Reference Range Interpretation Comments HEMOGLOBIN A1c (test code = 02497) 6.6 % LIPID [id number] 00:00:00 Test Item Value Reference Range Interpretation Comments CHOLESTEROL (test code = 2210) 261 MG/DL TRIGLYCERIDES (test code = 2232) 159 MG/DL HDL CHOLESTEROL (test code = 2220) 82 MG/DL CALC LDL CHOL (test code = 2237) 150 MG/DL RISK RATIO LDL/HDL (test code = 1.83 RATIO 2238) LIPID [id number] 00:00:00 Test Item Value Reference Range Interpretation Comments CHOLESTEROL (test code = 2210) 261 MG/DL TRIGLYCERIDES (test code = 2232) 159 MG/DL HDL CHOLESTEROL (test code = 2220) 82 MG/DL CALC LDL CHOL (test code = 2237) 150 MG/DL RISK RATIO LDL/HDL (test code = 1.83 RATIO 2238) COMPREHENSIVE METABOLIC [id number] 00:00:00 Test Item Value Reference Range Interpretation Comments GLUCOSE (test code = 2217) 144 MG/DL BUN (test code = 2208) 15 MG/DL CREATININE (test code = 2214) 0.85 MG/DL eGFR AMER. (test code 87 ML/MIN/1.73 = 52172) eGFR NON- AMER. (test 75 ML/MIN/1.73 code = 37557) CALC BUN/CREAT (test code = 18 RATIO 2235) SODIUM (test code = 2231) 133 MEQ/L POTASSIUM (test code = 2228) 4.5 MEQ/L CHLORIDE (test code = 2215) 93 MEQ/L CARBON DIOXIDE (test code = 28 MEQ/L 6) CALCIUM (test code = 2209) 9.7 MG/DL [...] code = 2219) 50 U/L COMPREHENSIVE METABOLIC [id number] 00:00:00 Test Item Value Reference Range Interpretation Comments GLUCOSE (test code = 2217) 144 MG/DL BUN (test code = 2208) 15 MG/DL CREATININE (test code = 2214) 0.85 MG/DL eGFR AMER. (test code 87 ML/MIN/1.73 = 72257) eGFR NON- AMER. (test 75 ML/MIN/1.73 code = 62394) CALC BUN/CREAT (test code = 18 RATIO 5) SODIUM (test code = 2231) 133 MEQ/L [...] ALKALINE PHOSPHATASE (test 117 U/L code = 2203) AST (test code = 221) 27 U/L ALT (test code = 221) 50 U/L THYROID II PROFILE (T3U, T4, T7, TSH)2020-05-23 00:00:00 Test Item Value Reference Range Interpretation Comments T-UPTAKE (test code = 2816) 30.2 % THYROX. BIND. CAPAC. (test code 1.1 = 01238) T4 (THYROXINE) (test code = 4.3 UG/DL 281) CORRECTED T4 (FTI) (test code = 3.9 UG/DL 2820) TSH, THIRD GENERATION (test 18.900 UIU/ML code = 2821) THYROID II PROFILE (T3U, T4, T7, TSH)2020-05-23 00:00:00 Test Item Value Reference Range Interpretation Comments T-UPTAKE (test code = 2816) 30.2 % THYROX. BIND. CAPAC. (test code 1.1 = 08398) T4 (THYROXINE) (test code = 4.3 UG/DL 2819) CORRECTED T4 (FTI) (test code = 3.9 UG/DL 2820) TSH, THIRD GENERATION (test 18.900 UIU/ML code = 2821) HEMOGLOBIN [id number] 00:00:00 Test Item Value Reference Range Interpretation Comments HEMOGLOBIN A1c (test code = 99140) 6.7 % HEMOGLOBIN [id number] 00:00:00 Test Item Value Reference Range Interpretation Comments HEMOGLOBIN A1c (test code = 40254) 6.7 % LIPID [id number] 00:00:00 Test Item Value Reference Range Interpretation Comments CHOLESTEROL (test code = 2210) 267 MG/DL TRIGLYCERIDES (test code = 2232) 137 MG/DL HDL CHOLESTEROL (test code = 2220) 48 MG/DL CALC LDL CHOL (test code = 2237) 192 MG/DL RISK RATIO LDL/HDL (test code = 4.00 RATIO 2238) COMPREHENSIVE METABOLIC [id number] 00:00:00 Test Item Value Reference Range Interpretation Comments GLUCOSE (test code = 2217) 155 MG/DL BUN (test code = 2208) 14 MG/DL CREATININE (test code = 2214) 0.52 MG/DL eGFR AMER. (test code 122 ML/MIN/1.73 = 73513) eGFR NON- AMER. (test 105 ML/MIN/1.73 code = 73716) CALC BUN/CREAT (test code = 27 RATIO [...] THYROX. BIND. CAPAC. (test code 1.0 = 34026) T4 (THYROXINE) (test code = 4.7 UG/DL 2819) CORRECTED T4 (FTI) (test code = 4.7 UG/DL 2820) TSH, THIRD GENERATION (test code 0.201 UIU/ML = 2821) HEMOGLOBIN [id number] 00:00:00 Test Item Value Reference Range Interpretation Comments HEMOGLOBIN A1c (test code = 75726) 6.7 % HEMOGLOBIN [id number] 00:00:00 Test Item Value Reference Range Interpretation Comments HEMOGLOBIN A1c (test code = 33825) 6.7 % HEMOGLOBIN [id number] 00:00:00 Test Item Value Reference Range Interpretation Comments HEMOGLOBIN A1c (test code = 07670) 6.7 % LIPID [id number] 00:00:00 Test Item Value Reference Range Interpretation Comments CHOLESTEROL (test code = 2210) 267 MG/DL TRIGLYCERIDES (test code = 2232) 137 MG/DL HDL CHOLESTEROL (test code = 2220) 48 MG/DL CALC LDL CHOL (test code = 2237) 192 MG/DL RISK RATIO LDL/HDL (test code = 4.00 RATIO 2238) LIPID [id number] 00:00:00 Test Item Value Reference Range Interpretation Comments CHOLESTEROL (test code = 2210) 267 MG/DL TRIGLYCERIDES (test code = 2232) 137 MG/DL HDL CHOLESTEROL (test code = 2220) 48 MG/DL CALC LDL CHOL (test code = 2237) 192 MG/DL RISK RATIO LDL/HDL (test code = 4.00 RATIO 2238) COMPREHENSIVE METABOLIC [id number] 00:00:00 Test Item Value Reference Range Interpretation Comments GLUCOSE (test code = 2217) 155 MG/DL BUN (test code = 2208) 14 MG/DL CREATININE (test code = 2214) 0.52 MG/DL eGFR AMER. (test code 122 ML/MIN/1.73 = 19656) eGFR NON- AMER. (test 105 ML/MIN/1.73 code = 80974) CALC BUN/CREAT (test code = 27 RATIO [...] code = 2219) 27 U/L COMPREHENSIVE METABOLIC [id number] 00:00:00 Test Item Value Reference Range Interpretation Comments GLUCOSE (test code = 2217) 155 MG/DL BUN (test code = 2208) 14 MG/DL CREATININE (test code = 2214) 0.52 MG/DL eGFR AMER. (test code 122 ML/MIN/1.73 = 66403) eGFR NON- AMER. (test 105 ML/MIN/1.73 code = 59465) CALC BUN/CREAT (test code = 27 RATIO [...] THYROX. BIND. CAPAC. (test code 1.0 = 61657) T4 (THYROXINE) (test code = 4.7 UG/DL 2819) CORRECTED T4 (FTI) (test code = 4.7 UG/DL 2820) TSH, THIRD GENERATION (test code 0.201 UIU/ML = 2821) THYROID II PROFILE (T3U, T4, T7, TSH)2019 00:00:00 Test Item Value Reference Range Interpretation Comments T-UPTAKE (test code = 2817) 33.1 % THYROX. BIND. CAPAC. (test code 1.0 = 68739) T4 (THYROXINE) (test code = 4.7 UG/DL 2819) CORRECTED T4 (FTI) (test code = 4.7 UG/DL 2820) TSH, THIRD GENERATION (test code 0.201 UIU/ML = 2821) SARS-CoV-2 (COVID-19) by RT-PCR (HIGH RISK)2019-09-18 00:00:00 Test Item Value Reference Range Interpretation Comments SARS-CoV-2 INTERPRETATION (test NEGATIVE code = 57051) SOURCE (test code = 00630) NOT SPECIFIED SARS-CoV-2 (COVID-19) by RT-PCR (HIGH RISK)2019-09-18 00:00:00 Test Item Value Reference Range Interpretation Comments SARS-CoV-2 INTERPRETATION (test NEGATIVE code = 32123) SOURCE (test code = 27677) NOT SPECIFIED SARS-CoV-2 (COVID-19) by RT-PCR (HIGH RISK)2019-09-18 00:00:00 Test Item Value Reference Range Interpretation Comments SARS-CoV-2 INTERPRETATION (test NEGATIVE code = 17962) SOURCE (test code = 59602) NOT SPECIFIED [id number] 00:00:00 Test Item Value Reference Range Interpretation Comments TSH, THIRD GENERATION (test code 2.490 UIU/ML = 2821) [id number] 00:00:00 Test Item Value Reference Range Interpretation Comments TSH, THIRD GENERATION (test code 2.490 UIU/ML = 2821) HEMOGLOBIN [id number] 00:00:00 Test Item Value Reference Range Interpretation Comments HEMOGLOBIN A1c (test code = 18038) 6.4 % HEMOGLOBIN [id number] 00:00:00 Test Item Value Reference Range Interpretation Comments HEMOGLOBIN A1c (test code = 10903) 6.4 % COMPREHENSIVE METABOLIC [id number] 00:00:00 Test Item Value Reference Range Interpretation Comments GLUCOSE (test code = 2217) 206 MG/DL BUN (test code = 2208) 23 MG/DL CREATININE (test code = 2214) 0.67 MG/DL eGFR AMER. (test code 112 ML/MIN/1.73 = 57082) eGFR NON- AMER. (test 97 ML/MIN/1.73 code = 21219) CALC BUN/CREAT (test code = 34 RATIO 2235) SODIUM (test code = 2231) 142 MEQ/L POTASSIUM (test code = 2228) 4.1 MEQ/L CHLORIDE (test code = 2215) 99 MEQ/L CARBON DIOXIDE (test code = 28 MEQ/L 2205) CALCIUM (test code = 2209) 8.8 MG/DL PROTEIN, TOTAL (test code = 6.8 G/DL 222) ALBUMIN (test code = 2201) 4.6 G/DL CALC GLOBULIN (test code = 2.2 G/DL 2240) CALC A/G RATIO (test code = 2.1 RATIO 2234) BILIRUBIN, TOTAL (test code = <0.2 MG/DL 2206) ALKALINE PHOSPHATASE (test 105 U/L code = 220) AST (test code = 2218) 17 U/L ALT (test code = 2219) 25 U/L [id number] 00:00:00 Test Item Value Reference Range Interpretation Comments TSH, THIRD GENERATION (test code 2.490 UIU/ML = 2821) [id number] 00:00:00 Test Item Value Reference Range Interpretation Comments TSH, THIRD GENERATION (test code 2.490 UIU/ML = 2821) [id number] 00:00:00 Test Item Value Reference Range Interpretation Comments TSH, THIRD GENERATION (test code 2.490 UIU/ML = 2821) HEMOGLOBIN [id number] 00:00:00 Test Item Value Reference Range Interpretation Comments HEMOGLOBIN A1c (test code = 85477) 6.4 % HEMOGLOBIN [id number] 00:00:00 Test Item Value Reference Range Interpretation Comments HEMOGLOBIN A1c (test code = 49599) 6.4 % HEMOGLOBIN [id number] 00:00:00 Test Item Value Reference Range Interpretation Comments HEMOGLOBIN A1c (test code = 61563) 6.4 % COMPREHENSIVE METABOLIC [id number] 00:00:00 Test Item Value Reference Range Interpretation Comments GLUCOSE (test code = 2217) 206 MG/DL BUN (test code = 2208) 23 MG/DL CREATININE (test code = 2214) 0.67 MG/DL eGFR AMER. (test code 112 ML/MIN/1.73 = 48935) eGFR NON- AMER. (test 97 ML/MIN/1.73 code = 06073) CALC BUN/CREAT (test code = 34 RATIO 2235) SODIUM (test code = 2231) 142 MEQ/L POTASSIUM (test code = 2228) 4.1 MEQ/L CHLORIDE (test code = 2215) 99 MEQ/L CARBON DIOXIDE (test code = 28 MEQ/L 2206) CALCIUM (test code = 2209) 8.8 MG/DL PROTEIN, TOTAL (test code = 6.8 G/DL 222) ALBUMIN (test code = 2201) 4.6 G/DL CALC GLOBULIN (test code = 2.2 G/DL 2240) CALC A/G RATIO (test code = 2.1 RATIO 2234) BILIRUBIN, TOTAL (test code = <0.2 MG/DL 220) ALKALINE PHOSPHATASE (test 105 U/L code = 2204) AST (test code = 2218) 17 U/L ALT (test code = 2219) 25 U/L COMPREHENSIVE METABOLIC [id number] 00:00:00 Test Item Value Reference Range Interpretation Comments GLUCOSE (test code = 2217) 206 MG/DL BUN (test code = 2208) 23 MG/DL CREATININE (test code = 2214) 0.67 MG/DL eGFR AMER. (test code 112 ML/MIN/1.73 = 66516) eGFR NON- AMER. (test 97 ML/MIN/1.73 code = 44508) CALC BUN/CREAT (test code = 34 RATIO 2235) SODIUM (test code = 2231) 142 MEQ/L POTASSIUM (test code = 2228) 4.1 MEQ/L CHLORIDE (test code = 2215) 99 MEQ/L CARBON DIOXIDE (test code = 28 MEQ/L 2206) CALCIUM (test code = 2209) 8.8 MG/DL PROTEIN, TOTAL (test code = 6.8 G/DL 222) ALBUMIN (test code = 2201) 4.6 G/DL CALC GLOBULIN (test code = 2.2 G/DL 2240) CALC A/G RATIO (test code = 2.1 RATIO 2234) BILIRUBIN, TOTAL (test code = <0.2 MG/DL 220) ALKALINE PHOSPHATASE (test 105 U/L code = 2204) AST (test code = 2218) 17 U/L ALT (test code = 2219) 25 U/L VAGINAL PATHOGENS DNA [id number] 00:00:00 Test Item Value Reference Range Interpretation Comments MARK SPECIES (test code = 82404) NEGATIVE G. VAGINALIS (test code = 81265) NEGATIVE T. VAGINALIS (test code = 30078) NEGATIVE VAGINAL PATHOGENS DNA [id number] 00:00:00 Test Item Value Reference Range Interpretation Comments MARK SPECIES (test code = 17395) NEGATIVE G. VAGINALIS (test code = 52652) NEGATIVE T. VAGINALIS (test code = 31789) NEGATIVE VAGINAL PATHOGENS DNA [id number] 00:00:00 Test Item Value Reference Range Interpretation Comments MARK SPECIES (test code = 75766) NEGATIVE G. VAGINALIS (test code = 56343) NEGATIVE T. VAGINALIS (test code = 42929) NEGATIVE HEMOGLOBIN A1c [ADDED]2018-12-01 00:00:00 Test Item Value Reference Range Interpretation Comments HEMOGLOBIN A1c (test code = 38001) 6.7 % HEMOGLOBIN A1c [ADDED]2018-12-01 00:00:00 Test Item Value Reference Range Interpretation Comments HEMOGLOBIN A1c (test code = 46813) 6.7 % COMPREHENSIVE METABOLIC PANEL [ADDED]2018-12-01 00:00:00 Test Item Value Reference Range Interpretation Comments GLUCOSE (test code = 2217) 136 MG/DL BUN (test code = 2208) 15 MG/DL CREATININE (test code = 2214) 0.64 MG/DL eGFR AMER. (test code 115 ML/MIN/1.73 = 81291) eGFR NON- AMER. (test 99 ML/MIN/1.73 code = 00536) CALC BUN/CREAT (test code = 23 RATIO [...] Interpretation Comments HEMOGLOBIN A1c (test code = 97773) 6.7 % HEMOGLOBIN A1c [ADDED]2018-12-01 00:00:00 Test Item Value Reference Range Interpretation Comments HEMOGLOBIN A1c (test code = 20756) 6.7 % HEMOGLOBIN A1c [ADDED]2018-12-01 00:00:00 Test Item Value Reference Range Interpretation Comments HEMOGLOBIN A1c (test code = 51658) 6.7 % COMPREHENSIVE METABOLIC PANEL [ADDED]2018-12-01 00:00:00 Test Item Value Reference Range Interpretation Comments GLUCOSE (test code = 2217) 136 MG/DL BUN (test code = 2208) 15 MG/DL CREATININE (test code = 2214) 0.64 MG/DL eGFR AMER. (test code 115 ML/MIN/1.73 = 35948) eGFR NON- AMER. (test 99 ML/MIN/1.73 code = 36919) CALC BUN/CREAT (test code = 23 RATIO [...] eGFR AMER. (test code 115 ML/MIN/1.73 = 78065) eGFR NON- AMER. (test 99 ML/MIN/1.73 code = 46115) CALC BUN/CREAT (test code = 23 RATIO [...] code 1.280 UIU/ML = 2821) CBC W/AUTO [id number] 00:00:00 Test Item Value Reference Range Interpretation [...] code = 1015) 346 K/UL CBC W/AUTO [id number] 00:00:00 Test Item Value Reference Range Interpretation [...] (test code = 1015) 346 K/UL HEMOGLOBIN [id number] 00:00:00 Test Item Value Reference Range Interpretation Comments HEMOGLOBIN A1c (test code = 29147) 5.9 % HEMOGLOBIN [id number] 00:00:00 Test Item Value Reference Range Interpretation Comments HEMOGLOBIN A1c (test code = 16096) 5.9 % LIPID [id number] 00:00:00 Test Item Value Reference Range Interpretation Comments CHOLESTEROL (test code = 2210) 318 MG/DL TRIGLYCERIDES (test code = 2232) 263 MG/DL HDL CHOLESTEROL (test code = 2220) 51 MG/DL CALC LDL CHOL (test code = 2237) 214 MG/DL RISK RATIO LDL/HDL (test code = 4.20 RATIO 2238) COMPREHENSIVE METABOLIC [id number] 00:00:00 Test Item Value Reference Range Interpretation Comments GLUCOSE (test code = 2217) 113 MG/DL BUN (test code = 2208) 18 MG/DL CREATININE (test code = 2214) 0.70 MG/DL eGFR AMER. (test code 111 ML/MIN/1.73 = 72065) eGFR NON- AMER. (test 96 ML/MIN/1.73 code = 47517) CALC BUN/CREAT (test code = 26 RATIO [...] ALT (test code = 2219) 31 U/L [id number] 00:00:00 Test Item Value Reference Range Interpretation Comments TSH, THIRD GENERATION (test code 2.520 UIU/ML = 2821) [id number] 00:00:00 Test Item Value Reference Range Interpretation Comments TSH, THIRD GENERATION (test code 2.520 UIU/ML = 2821) CBC W/AUTO [id number] 00:00:00 Test Item Value Reference Range Interpretation [...] code = 1015) 346 K/UL CBC W/AUTO [id number] 00:00:00 Test Item Value Reference Range Interpretation [...] code = 1015) 346 K/UL CBC W/AUTO [id number] 00:00:00 Test Item Value Reference Range Interpretation [...] (test code = 1015) 346 K/UL HEMOGLOBIN [id number] 00:00:00 Test Item Value Reference Range Interpretation Comments HEMOGLOBIN A1c (test code = 95361) 5.9 % HEMOGLOBIN [id number] 00:00:00 Test Item Value Reference Range Interpretation Comments HEMOGLOBIN A1c (test code = 30994) 5.9 % HEMOGLOBIN [id number] 00:00:00 Test Item Value Reference Range Interpretation Comments HEMOGLOBIN A1c (test code = 19995) 5.9 % LIPID [id number] 00:00:00 Test Item Value Reference Range Interpretation Comments CHOLESTEROL (test code = 2210) 318 MG/DL TRIGLYCERIDES (test code = 2232) 263 MG/DL HDL CHOLESTEROL (test code = 2220) 51 MG/DL CALC LDL CHOL (test code = 2237) 214 MG/DL RISK RATIO LDL/HDL (test code = 4.20 RATIO 2238) LIPID [id number] 00:00:00 Test Item Value Reference Range Interpretation Comments CHOLESTEROL (test code = 2210) 318 MG/DL TRIGLYCERIDES (test code = 2232) 263 MG/DL HDL CHOLESTEROL (test code = 2220) 51 MG/DL CALC LDL CHOL (test code = 2237) 214 MG/DL RISK RATIO LDL/HDL (test code = 4.20 RATIO 2238) COMPREHENSIVE METABOLIC [id number] 00:00:00 Test Item Value Reference Range Interpretation Comments GLUCOSE (test code = 2217) 113 MG/DL BUN (test code = 2208) 18 MG/DL CREATININE (test code = 2214) 0.70 MG/DL eGFR AMER. (test code 111 ML/MIN/1.73 = 43473) eGFR NON- AMER. (test 96 ML/MIN/1.73 code = 75389) CALC BUN/CREAT (test code = 26 RATIO [...] code = 2219) 31 U/L COMPREHENSIVE METABOLIC [id number] 00:00:00 Test Item Value Reference Range Interpretation Comments GLUCOSE (test code = 2217) 113 MG/DL BUN (test code = 2208) 18 MG/DL CREATININE (test code = 2214) 0.70 MG/DL eGFR AMER. (test code 111 ML/MIN/1.73 = 35951) eGFR NON- AMER. (test 96 ML/MIN/1.73 code = 85346) CALC BUN/CREAT (test code = 26 RATIO 2235) SODIUM (test code = 2231) 137 MEQ/L POTASSIUM (test code = 2228) 4.3 MEQ/L CHLORIDE (test code = 2215) 99 MEQ/L CARBON DIOXIDE (test code = 24 MEQ/L 2205) CALCIUM (test code = 2209) 9.6 MG/DL PROTEIN, TOTAL (test code = 7.2 G/DL 222) ALBUMIN (test code = 2201) 4.8 G/DL CALC GLOBULIN (test code = 2.4 G/DL 2240) CALC A/G RATIO (test code = 2.0 RATIO 2234) BILIRUBIN, TOTAL (test code = <0.2 MG/DL 2206) ALKALINE PHOSPHATASE (test 80 U/L code = 2204) AST (test code = 2218) 21 U/L ALT (test code = 2219) 31 U/L [id number] 00:00:00 Test Item Value Reference Range Interpretation Comments TSH, THIRD GENERATION (test code 2.520 UIU/ML = 2821) [id number] 00:00:00 Test Item Value Reference Range Interpretation Comments TSH, THIRD GENERATION (test code 2.520 UIU/ML = 2821) [id number] 00:00:00 Test Item Value Reference Range Interpretation Comments TSH, THIRD GENERATION (test code 2.520 UIU/ML = 2821) CULTURE, [id number] 00:00:00 Test Item Value Reference Range Interpretation Comments CULTURE, URINE (test SPECIMEN NUMBER: code = 22614) [id number] CULTURE, [id number] 00:00:00 Test Item Value Reference Range Interpretation Comments CULTURE, URINE (test SPECIMEN NUMBER: code = 14712) [id number] CULTURE, [id number] 00:00:00 Test Item Value Reference Range Interpretation Comments CULTURE, URINE (test SPECIMEN NUMBER: code = 13444) [id number] CULTURE, [id number] 00:00:00 Test Item Value Reference Range Interpretation Comments CULTURE, URINE (test SPECIMEN NUMBER: code = 22851) [id number] CULTURE, [id number] 00:00:00 Test Item Value Reference Range Interpretation Comments CULTURE, URINE (test SPECIMEN NUMBER: code = 19323) [id number] CULTURE, [id number] 00:00:00 Test Item Value Reference Range Interpretation Comments CULTURE, URINE (test SPECIMEN NUMBER: code = 88721) [id number] BASIC METABOLIC [id number] 00:00:00 Test Item Value Reference Range Interpretation Comments GLUCOSE (test code = 2217) 135 MG/DL BUN (test code = 2208) 25 MG/DL CREATININE (test code = 2214) 0.76 MG/DL eGFR AMER. (test code 101 ML/MIN/1.73 = 26642) eGFR NON- AMER. (test 87 ML/MIN/1.73 code = 66550) SODIUM (test code = 2231) 139 MEQ/L POTASSIUM (test code = 2228) 4.7 MEQ/L CHLORIDE (test code = 2215) 99 MEQ/L CARBON DIOXIDE (test code = 26 MEQ/L 2206) CALCIUM (test code = 2209) 9.4 MG/DL LIPID [id number] 00:00:00 Test Item Value Reference Range Interpretation Comments CHOLESTEROL (test code = 2210) 262 MG/DL TRIGLYCERIDES (test code = 2232) 300 MG/DL HDL CHOLESTEROL (test code = 2220) 36 MG/DL CALC LDL CHOL (test code = 2237) 166 MG/DL RISK RATIO LDL/HDL (test code = 4.61 RATIO 2238) HEMOGLOBIN [id number] 00:00:00 Test Item Value Reference Range Interpretation Comments HEMOGLOBIN A1c (test code = 06937) 6.2 % HEMOGLOBIN [id number] 00:00:00 Test Item Value Reference Range Interpretation Comments HEMOGLOBIN A1c (test code = 00933) 6.2 % [id number] 00:00:00 Test Item Value Reference Range Interpretation Comments TSH, THIRD GENERATION (test code 0.988 UIU/ML = 2821) [id number] 00:00:00 Test Item Value Reference Range Interpretation Comments TSH, THIRD GENERATION (test code 0.988 UIU/ML = 2821) BASIC METABOLIC [id number] 00:00:00 Test Item Value Reference Range Interpretation Comments GLUCOSE (test code = 2217) 135 MG/DL BUN (test code = 2208) 25 MG/DL CREATININE (test code = 2214) 0.76 MG/DL eGFR AMER. (test code 101 ML/MIN/1.73 = 18511) eGFR NON- AMER. (test 87 ML/MIN/1.73 code = 74057) SODIUM (test code = 2231) 139 MEQ/L POTASSIUM (test code = 2228) 4.7 MEQ/L CHLORIDE (test code = 2215) 99 MEQ/L CARBON DIOXIDE (test code = 26 MEQ/L 2206) CALCIUM (test code = 2209) 9.4 MG/DL BASIC METABOLIC [id number] 00:00:00 Test Item Value Reference Range Interpretation Comments GLUCOSE (test code = 2217) 135 MG/DL BUN (test code = 2208) 25 MG/DL CREATININE (test code = 2214) 0.76 MG/DL eGFR AMER. (test code 101 ML/MIN/1.73 = 78873) eGFR NON- AMER. (test 87 ML/MIN/1.73 code = 72767) SODIUM (test code = 2231) 139 MEQ/L POTASSIUM (test code = 2228) 4.7 MEQ/L CHLORIDE (test code = 2215) 99 MEQ/L CARBON DIOXIDE (test code = 26 MEQ/L 2206) CALCIUM (test code = 2209) 9.4 MG/DL LIPID [id number] 00:00:00 Test Item Value Reference Range Interpretation Comments CHOLESTEROL (test code = 2210) 262 MG/DL TRIGLYCERIDES (test code = 2232) 300 MG/DL HDL CHOLESTEROL (test code = 2220) 36 MG/DL CALC LDL CHOL (test code = 2237) 166 MG/DL RISK RATIO LDL/HDL (test code = 4.61 RATIO 2238) LIPID [id number] 00:00:00 Test Item Value Reference Range Interpretation Comments CHOLESTEROL (test code = 2210) 262 MG/DL TRIGLYCERIDES (test code = 2232) 300 MG/DL HDL CHOLESTEROL (test code = 2220) 36 MG/DL CALC LDL CHOL (test code = 2237) 166 MG/DL RISK RATIO LDL/HDL (test code = 4.61 RATIO 2238) HEMOGLOBIN [id number] 00:00:00 Test Item Value Reference Range Interpretation Comments HEMOGLOBIN A1c (test code = 51528) 6.2 % HEMOGLOBIN [id number] 00:00:00 Test Item Value Reference Range Interpretation Comments HEMOGLOBIN A1c (test code = 70485) 6.2 % HEMOGLOBIN [id number] 00:00:00 Test Item Value Reference Range Interpretation Comments HEMOGLOBIN A1c (test code = 75449) 6.2 % [id number] 00:00:00 Test Item Value Reference Range Interpretation Comments TSH, THIRD GENERATION (test code 0.988 UIU/ML = 2821) [id number] 00:00:00 Test Item Value Reference Range Interpretation Comments TSH, THIRD GENERATION (test code 0.988 UIU/ML = 2821) [id number] 00:00:00 Test Item Value Reference Range Interpretation Comments TSH, THIRD GENERATION (test code 0.988 UIU/ML = 2821) COMPREHENSIVE METABOLIC [id number] 00:00:00 Test Item Value Reference Range Interpretation Comments GLUCOSE (test code = 2217) 109 MG/DL BUN (test code = 2208) 25 MG/DL CREATININE (test code = 2214) 0.78 MG/DL eGFR AMER. (test code 98 ML/MIN/1.73 = 09369) eGFR NON- AMER. (test 84 ML/MIN/1.73 code = 15133) CALC BUN/CREAT (test code = 32 RATIO [...] (test code = 2219) 25 U/L LIPID [id number] 00:00:00 Test Item Value Reference Range Interpretation Comments CHOLESTEROL (test code = 2210) 295 MG/DL TRIGLYCERIDES (test code = 2232) 218 MG/DL HDL CHOLESTEROL (test code = 2220) 46 MG/DL CALC LDL CHOL (test code = 2237) 205 MG/DL RISK RATIO LDL/HDL (test code = 4.47 RATIO 8) HEMOGLOBIN [id number] 00:00:00 Test Item Value Reference Range Interpretation Comments HEMOGLOBIN A1c (test code = 07382) 7.0 % HEMOGLOBIN [id number] 00:00:00 Test Item Value Reference Range Interpretation Comments HEMOGLOBIN A1c (test code = 55929) 7.0 % [id number] 00:00:00 Test Item Value Reference Range Interpretation Comments TSH, THIRD GENERATION (test code 0.565 UIU/ML = 2821) [id number] 00:00:00 Test Item Value Reference Range Interpretation Comments TSH, THIRD GENERATION (test code 0.565 UIU/ML = 2821) COMPREHENSIVE METABOLIC [id number] 00:00:00 Test Item Value Reference Range Interpretation Comments GLUCOSE (test code = 2217) 109 MG/DL BUN (test code = 2208) 25 MG/DL CREATININE (test code = 2214) 0.78 MG/DL eGFR AMER. (test code 98 ML/MIN/1.73 = 91846) eGFR NON- AMER. (test 84 ML/MIN/1.73 code = 34751) CALC BUN/CREAT (test code = 32 RATIO [...] = <0.2 MG/DL 220) ALKALINE PHOSPHATASE (test 109 U/L code = 2204) AST (test code = 2218) 18 U/L ALT (test code = 2219) 25 U/L COMPREHENSIVE METABOLIC [id number] 00:00:00 Test Item Value Reference Range Interpretation Comments GLUCOSE (test code = 2217) 109 MG/DL BUN (test code = 2208) 25 MG/DL CREATININE (test code = 2214) 0.78 MG/DL eGFR AMER. (test code 98 ML/MIN/1.73 = 93251) eGFR NON- AMER. (test 84 ML/MIN/1.73 code = 00342) CALC BUN/CREAT (test code = 32 RATIO [...] (test code = 2219) 25 U/L LIPID [id number] 00:00:00 Test Item Value Reference Range Interpretation Comments CHOLESTEROL (test code = 2210) 295 MG/DL TRIGLYCERIDES (test code = 2232) 218 MG/DL HDL CHOLESTEROL (test code = 2220) 46 MG/DL CALC LDL CHOL (test code = 2237) 205 MG/DL RISK RATIO LDL/HDL (test code = 4.47 RATIO 2238) LIPID [id number] 00:00:00 Test Item Value Reference Range Interpretation Comments CHOLESTEROL (test code = 2210) 295 MG/DL TRIGLYCERIDES (test code = 2232) 218 MG/DL HDL CHOLESTEROL (test code = 2220) 46 MG/DL CALC LDL CHOL (test code = 2237) 205 MG/DL RISK RATIO LDL/HDL (test code = 4.47 RATIO 2238) HEMOGLOBIN [id number] 00:00:00 Test Item Value Reference Range Interpretation Comments HEMOGLOBIN A1c (test code = 84601) 7.0 % HEMOGLOBIN [id number] 00:00:00 Test Item Value Reference Range Interpretation Comments HEMOGLOBIN A1c (test code = 01705) 7.0 % HEMOGLOBIN [id number] 00:00:00 Test Item Value Reference Range Interpretation Comments HEMOGLOBIN A1c (test code = 25663) 7.0 % [id number] 00:00:00 Test Item Value Reference Range Interpretation Comments TSH, THIRD GENERATION (test code 0.565 UIU/ML = 2821) [id number] 00:00:00 Test Item Value Reference Range Interpretation Comments TSH, THIRD GENERATION (test code 0.565 UIU/ML = 2821) [id number] 00:00:00 Test Item Value Reference Range Interpretation Comments TSH, THIRD GENERATION (test code 0.565 UIU/ML = 2821) [id number] 00:00:00 Test Item Value Reference Range Interpretation Comments TSH, THIRD GENERATION (test code 0.379 UIU/ML = 2821) [id number] 00:00:00 Test Item Value Reference Range Interpretation Comments TSH, THIRD GENERATION (test code 0.379 UIU/ML = 2821) [id number] 00:00:00 Test Item Value Reference Range Interpretation Comments TSH, THIRD GENERATION (test code 0.379 UIU/ML = 2821) [id number] 00:00:00 Test Item Value Reference Range Interpretation Comments TSH, THIRD GENERATION (test code 0.379 UIU/ML = 2821) [id number] 00:00:00 Test Item Value Reference Range Interpretation Comments TSH, THIRD GENERATION (test code 0.379 UIU/ML = 2821) CULTURE, [id number] 00:00:00 Test Item Value Reference Range Interpretation Comments CULTURE, URINE (test SPECIMEN NUMBER: code = 62030) [id number] CULTURE, [id number] 00:00:00 Test Item Value Reference Range Interpretation Comments CULTURE, URINE (test SPECIMEN NUMBER: code = 40349) [id number] CULTURE, [id number] 00:00:00 Test Item Value Reference Range Interpretation Comments CULTURE, URINE (test SPECIMEN NUMBER: code = 70301) [id number] COMPREHENSIVE METABOLIC [id number] 00:00:00 Test Item Value Reference Range Interpretation Comments GLUCOSE (test code = 2217) 128 MG/DL BUN (test code = 2208) 26 MG/DL CREATININE (test code = 2214) 0.92 MG/DL eGFR AMER. (test code 81 ML/MIN/1.73 = 95658) eGFR NON- AMER. (test 70 ML/MIN/1.73 code = 56478) CALC BUN/CREAT (test code = 28 RATIO 2235) SODIUM (test code = 2231) 138 MEQ/L POTASSIUM (test code = 2228) 4.4 MEQ/L CHLORIDE (test code = 2215) 94 MEQ/L CARBON DIOXIDE (test code = 31 MEQ/L 2206) CALCIUM (test code = 2209) 9.5 MG/DL PROTEIN, TOTAL (test code = 7.3 G/DL 2229) ALBUMIN (test code = 2201) 4.7 G/DL CALC GLOBULIN (test code = 2.6 G/DL 2240) CALC A/G RATIO (test code = 1.8 RATIO 2234) BILIRUBIN, TOTAL (test code = <0.2 MG/DL 2207) ALKALINE PHOSPHATASE (test 104 U/L code = 2204) AST (test code = 2218) 24 U/L ALT (test code = 2219) 29 U/L ACUTE HEPATITIS [id number] 00:00:00 Test Item Value Reference Range Interpretation Comments HEPATITIS A IgM (test code = NON-REACTIVE 69256) HEPATITIS B CORE IgM (test code NON-REACTIVE = 1273) HEPATITIS B SURF AG (test code = NON-REACTIVE 3826) HEPATITIS C ANTIBODY (test code NON-REACTIVE = 7950) INTERPRETATION HEPATITIS A: (NOTE) (test code = 2552) INTERPRETATION HEPATITIS B: (NOTE) (test code = 46075) INTERPRETATION HEPATITIS C: (NOTE) (test code = 36436) [id number] 00:00:00 Test Item Value Reference Range Interpretation Comments AMYLASE (test code = 2205) 32 U/L [id number] 00:00:00 Test Item Value Reference Range Interpretation Comments LIPASE (test code = 2058) 22 U/L [id number] 00:00:00 Test Item Value Reference Range Interpretation Comments LIPASE (test code = 2058) 22 U/L COMPREHENSIVE METABOLIC [id number] 00:00:00 Test Item Value Reference Range Interpretation Comments GLUCOSE (test code = 2217) 128 MG/DL BUN (test code = 2208) 26 MG/DL CREATININE (test code = 2214) 0.92 MG/DL eGFR AMER. (test code 81 ML/MIN/1.73 = 20405) eGFR NON- AMER. (test 70 ML/MIN/1.73 code = 40667) CALC BUN/CREAT (test code = 28 RATIO [...] code = 2219) 29 U/L COMPREHENSIVE METABOLIC [id number] 00:00:00 Test Item Value Reference Range Interpretation Comments GLUCOSE (test code = 2217) 128 MG/DL BUN (test code = 2208) 26 MG/DL CREATININE (test code = 2214) 0.92 MG/DL eGFR AMER. (test code 81 ML/MIN/1.73 = 38618) eGFR NON- AMER. (test 70 ML/MIN/1.73 code = 13320) CALC BUN/CREAT (test code = 28 RATIO [...] code = 2219) 29 U/L ACUTE HEPATITIS [id number] 00:00:00 Test Item Value Reference Range Interpretation Comments HEPATITIS A IgM (test code = NON-REACTIVE 96926) HEPATITIS B CORE IgM (test code NON-REACTIVE = 4644) HEPATITIS B SURF AG (test code = NON-REACTIVE 2739) HEPATITIS C ANTIBODY (test code NON-REACTIVE = 4675) INTERPRETATION HEPATITIS A: (NOTE) (test code = 2552) INTERPRETATION HEPATITIS B: (NOTE) (test code = 93732) INTERPRETATION HEPATITIS C: (NOTE) (test code = 40887) ACUTE HEPATITIS [id number] 00:00:00 Test Item Value Reference Range Interpretation Comments HEPATITIS A IgM (test code = NON-REACTIVE 48828) HEPATITIS B CORE IgM (test code NON-REACTIVE = 4644) HEPATITIS B SURF AG (test code = NON-REACTIVE 2739) HEPATITIS C ANTIBODY (test code NON-REACTIVE = 4675) INTERPRETATION HEPATITIS A: (NOTE) (test code = 2552) INTERPRETATION HEPATITIS B: (NOTE) (test code = 23501) INTERPRETATION HEPATITIS C: (NOTE) (test code = 39667) [id number] 00:00:00 Test Item Value Reference Range Interpretation Comments AMYLASE (test code = 2205) 32 U/L [id number] 00:00:00 Test Item Value Reference Range Interpretation Comments AMYLASE (test code = 2205) 32 U/L [id number] 00:00:00 Test Item Value Reference Range Interpretation Comments LIPASE (test code = 2058) 22 U/L [id number] 00:00:00 Test Item Value Reference Range Interpretation Comments LIPASE (test code = 2057) 22 U/L [id number] 00:00:00 Test Item Value Reference Range Interpretation Comments LIPASE (test code = 2057) 22 U/L [id number] 00:00:00 Test Item Value Reference Range Interpretation Comments TSH, THIRD GENERATION (test code 4.890 UIU/ML = 2821) [id number] 00:00:00 Test Item Value Reference Range Interpretation Comments TSH, THIRD GENERATION (test code 4.890 UIU/ML = 2821) COMPREHENSIVE METABOLIC [id number] 00:00:00 Test Item Value Reference Range Interpretation Comments GLUCOSE (test code = 2217) 121 MG/DL BUN (test code = 2208) 40 MG/DL CREATININE (test code = 2214) 1.48 MG/DL eGFR AMER. (test code 45 ML/MIN/1.73 = 09117) eGFR NON- AMER. (test 39 ML/MIN/1.73 code = 18694) CALC BUN/CREAT (test code = 27 RATIO [...] ALT (test code = 2219) 20 U/L [id number] 00:00:00 Test Item Value Reference Range Interpretation Comments TSH, THIRD GENERATION (test code 4.890 UIU/ML = 2821) [id number] 00:00:00 Test Item Value Reference Range Interpretation Comments TSH, THIRD GENERATION (test code 4.890 UIU/ML = 2821) [id number] 00:00:00 Test Item Value Reference Range Interpretation Comments TSH, THIRD GENERATION (test code 4.890 UIU/ML = 2821) COMPREHENSIVE METABOLIC [id number] 00:00:00 Test Item Value Reference Range Interpretation Comments GLUCOSE (test code = 2217) 121 MG/DL BUN (test code = 2208) 40 MG/DL CREATININE (test code = 2214) 1.48 MG/DL eGFR AMER. (test code 45 ML/MIN/1.73 = 72936) eGFR NON- AMER. (test 39 ML/MIN/1.73 code = 87186) CALC BUN/CREAT (test code = 27 RATIO [...] code = 2219) 20 U/L COMPREHENSIVE METABOLIC [id number] 00:00:00 Test Item Value Reference Range Interpretation Comments GLUCOSE (test code = 2217) 121 MG/DL BUN (test code = 2208) 40 MG/DL CREATININE (test code = 2214) 1.48 MG/DL eGFR AMER. (test code 45 ML/MIN/1.73 = 43945) eGFR NON- AMER. (test 39 ML/MIN/1.73 code = 90954) CALC BUN/CREAT (test code = 27 RATIO [...] (test code = 2219) 20 U/L LIPID [id number] 00:00:00 Test Item Value Reference Range Interpretation Comments CHOLESTEROL (test code = 2210) 261 MG/DL TRIGLYCERIDES (test code = 2232) 165 MG/DL HDL CHOLESTEROL (test code = 2220) 58 MG/DL CALC LDL CHOL (test code = 2237) 170 MG/DL RISK RATIO LDL/HDL (test code = 2.93 RATIO 2238) CBC W/AUTO [id number] 00:00:00 Test Item Value Reference Range Interpretation [...] code = 1015) 378 K/UL CBC W/AUTO [id number] 00:00:00 Test Item Value Reference Range Interpretation [...] (test code = 1015) 378 K/UL HEMOGLOBIN [id number] 00:00:00 Test Item Value Reference Range Interpretation Comments HEMOGLOBIN A1c (test code = 47058) 6.4 % HEMOGLOBIN [id number] 00:00:00 Test Item Value Reference Range Interpretation Comments HEMOGLOBIN A1c (test code = 37739) 6.4 % [id number] 00:00:00 Test Item Value Reference Range Interpretation Comments TSH (test code = 2821) 5.290 UIU/ML [id number] 00:00:00 Test Item Value Reference Range Interpretation Comments TSH (test code = 2821) 5.290 UIU/ML LIPID [id number] 00:00:00 Test Item Value Reference Range Interpretation Comments CHOLESTEROL (test code = 2210) 261 MG/DL TRIGLYCERIDES (test code = 2232) 165 MG/DL HDL CHOLESTEROL (test code = 2220) 58 MG/DL CALC LDL CHOL (test code = 2237) 170 MG/DL RISK RATIO LDL/HDL (test code = 2.93 RATIO 2238) LIPID [id number] 00:00:00 Test Item Value Reference Range Interpretation Comments CHOLESTEROL (test code = 2210) 261 MG/DL TRIGLYCERIDES (test code = 2232) 165 MG/DL HDL CHOLESTEROL (test code = 2220) 58 MG/DL CALC LDL CHOL (test code = 2237) 170 MG/DL RISK RATIO LDL/HDL (test code = 2.93 RATIO 2238) CBC W/AUTO [id number] 00:00:00 Test Item Value Reference Range Interpretation [...] code = 1015) 378 K/UL CBC W/AUTO [id number] 00:00:00 Test Item Value Reference Range Interpretation [...] code = 1015) 378 K/UL CBC W/AUTO [id number] 00:00:00 Test Item Value Reference Range Interpretation [...] (test code = 1015) 378 K/UL HEMOGLOBIN [id number] 00:00:00 Test Item Value Reference Range Interpretation Comments HEMOGLOBIN A1c (test code = 34195) 6.4 % HEMOGLOBIN [id number] 00:00:00 Test Item Value Reference Range Interpretation Comments HEMOGLOBIN A1c (test code = 58013) 6.4 % HEMOGLOBIN [id number] 00:00:00 Test Item Value Reference Range Interpretation Comments HEMOGLOBIN A1c (test code = 52460) 6.4 % [id number] 00:00:00 Test Item Value Reference Range Interpretation Comments TSH (test code = 2821) 5.290 UIU/ML [id number] 00:00:00 Test Item Value Reference Range Interpretation Comments TSH (test code = 2821) 5.290 UIU/ML [id number] 00:00:00 Test Item Value Reference Range Interpretation [...] code = 2821) 1.030 UIU/ML COMPREHENSIVE METABOLIC [id number] 00:00:00 Test Item Value Reference Range Interpretation Comments GLUCOSE (test code = 2217) 106 MG/DL BUN (test code = 2208) 23 MG/DL CREATININE (test code = 2214) 0.66 MG/DL eGFR AMER. (test code 114 ML/MIN/1.73 = 30882) eGFR NON- AMER. (test 99 ML/MIN/1.73 code = 52426) CALC BUN/CREAT (test code = 35 RATIO [...] code = 2821) 0.335 UIU/ML COMPREHENSIVE METABOLIC [id number] 00:00:00 Test Item Value Reference Range Interpretation Comments GLUCOSE (test code = 2217) 106 MG/DL BUN (test code = 2208) 23 MG/DL CREATININE (test code = 2214) 0.66 MG/DL eGFR AMER. (test code 114 ML/MIN/1.73 = 13408) eGFR NON- AMER. (test 99 ML/MIN/1.73 code = 21456) CALC BUN/CREAT (test code = 35 RATIO [...] code = 2219) 31 U/L COMPREHENSIVE METABOLIC [id number] 00:00:00 Test Item Value Reference Range Interpretation Comments GLUCOSE (test code = 2217) 106 MG/DL BUN (test code = 2208) 23 MG/DL CREATININE (test code = 2214) 0.66 MG/DL eGFR AMER. (test code 114 ML/MIN/1.73 = 31199) eGFR NON- AMER. (test 99 ML/MIN/1.73 code = 42859) CALC BUN/CREAT (test code = 35 RATIO 2235) SODIUM (test code = 2231) 138 MEQ/L POTASSIUM (test code = 2228) 5.1 MEQ/L CHLORIDE (test code = 2215) 96 MEQ/L CARBON DIOXIDE (test code = 27 MEQ/L 2205) CALCIUM (test code = 2209) 9.6 MG/DL PROTEIN, TOTAL (test code = 7.1 G/DL 9) ALBUMIN (test code = 2201) 4.7 G/DL [...] code = 2821) 0.335 UIU/ML COMPREHENSIVE METABOLIC [id number] 00:00:00 Test Item Value Reference Range Interpretation Comments GLUCOSE (test code = 2217) 103 MG/DL BUN (test code = 2208) 15 MG/DL CREATININE (test code = 2214) 0.77 MG/DL eGFR AMER. (test code 101 ML/MIN/1.73 = 46505) eGFR NON- AMER. (test 87 ML/MIN/1.73 code = 99515) CALC BUN/CREAT (test code = 19 RATIO [...] code = 2821) 0.424 UIU/ML COMPREHENSIVE METABOLIC [id number] 00:00:00 Test Item Value Reference Range Interpretation Comments GLUCOSE (test code = 2217) 103 MG/DL BUN (test code = 2208) 15 MG/DL CREATININE (test code = 2214) 0.77 MG/DL eGFR AMER. (test code 101 ML/MIN/1.73 = 42793) eGFR NON- AMER. (test 87 ML/MIN/1.73 code = 20522) CALC BUN/CREAT (test code = 19 RATIO [...] code = 2219) 24 U/L COMPREHENSIVE METABOLIC [id number] 00:00:00 Test Item Value Reference Range Interpretation Comments GLUCOSE (test code = 2217) 103 MG/DL BUN (test code = 2208) 15 MG/DL CREATININE (test code = 2214) 0.77 MG/DL eGFR AMER. (test code 101 ML/MIN/1.73 = 67903) eGFR NON- AMER. (test 87 ML/MIN/1.73 code = 22964) CALC BUN/CREAT (test code = 19 RATIO 2235) SODIUM (test code = 2231) 136 MEQ/L POTASSIUM (test code = 2228) 4.7 MEQ/L CHLORIDE (test code = 2215) 94 MEQ/L CARBON DIOXIDE (test code = 27 MEQ/L 2206) CALCIUM (test code = 2209) 9.4 MG/DL PROTEIN, TOTAL (test code = 6.4 G/DL 2229) ALBUMIN (test code = 2201) 4.3 G/DL [...] (test code = 2821) 0.424 UIU/ML CULTURE, [id number] 00:00:00 Test Item Value Reference Range Interpretation Comments CULTURE, URINE (test SPECIMEN NUMBER: code = 39385) [id number] CULTURE, [id number] 00:00:00 Test Item Value Reference Range Interpretation Comments CULTURE, URINE (test SPECIMEN NUMBER: code = 31132) [id number] CULTURE, [id number] 00:00:00 Test Item Value Reference Range Interpretation Comments CULTURE, URINE (test SPECIMEN NUMBER: code = 84162) [id number] CULTURE, [id number] 00:00:00 Test Item Value Reference Range Interpretation Comments CULTURE, URINE (test SPECIMEN NUMBER: code = 53401) [id number] CULTURE, [id number] 00:00:00 Test Item Value Reference Range Interpretation Comments CULTURE, URINE (test SPECIMEN NUMBER: code = 97188) [id number] CULTURE, [id number] 00:00:00 Test Item Value Reference Range Interpretation Comments CULTURE, URINE (test SPECIMEN NUMBER: code = 80713) [id number]
[2021-12-26] MEDS ORDERED: LORazepam 2 MG/ML VIAL ONE (10:03)
[2021-12-26] MEDS ORDERED: NA CHLORIDE 0.9% 1,000 ML ONE ×2 (10:03→14:15)
[2021-12-26] MEDS ORDERED: ONDANSETRON 4 MG/2 ML VIAL ONE ×2 (10:03→14:39)
[2021-12-26] MEDS ORDERED: FAMOTIDINE 20 MG/2 ML VIAL IV ONE (10:03)
[2021-12-26 10:09] LABS: Absolute Lymphocytes (CBC) 1.1 K/uL (0.7-4.9); Hematocrit 35.8 % (36.0-45.0); Lymphocytes % 14.1 % (15.3-44.8); MCV 89.2 fL (80-100); MPV 6.3 fL (7.6-11.3); RBC Red Blood Cell Count 4.01 M/uL (3.86-4.86)
[2021-12-26 10:10] LABS: Protime INR 1.02
--- NOTE | 2021-12-26 10:23 | RAD REPORT ---
EXAM DESCRIPTION: RAD - Chest Single View - 12/26/2021 10:06 am CLINICAL HISTORY: COUGH TECHNIQUE: AP portable chest image was obtained 12/26/2021 10:06 am . FINDINGS: No focal lung parenchymal process. Mildly prominent interstitial pattern matches compariso n. Heart and vasculature are normal. No measurable pleural effusion and no pneumothorax. No acute bon y abnormality seen. No acute aortic findings suspected. IMPRESSION: No new or progressive cardiopulmonary finding since 12/14/2021 imaging.
[2021-12-26 10:32] LABS: ALT/SGPT 77 U/L (12-78); AST/SGOT 17 U/L (15-37); Albumin 3.3 g/dL (3.4-5.0); Alkaline Phosphatase 99 U/L (45-117); BUN Blood Urea Nitrogen 10 mg/dL (7-18); Bicarbonate 25 mmol/L (21-32); Bilirubin Direct < 0.1 mg/dL (0-0.2); Bilirubin Total 0.3 mg/dL (0.2-1.0); Glomerular Filtration Rate 101 ml/min (=/>90); Glucose Level 173 mg/dL (74-106); Lipase 45 U/L (73-393); Magnesium 1.6 mg/dL (1.8-2.4); NT PRO-BNP 247 pg/mL (<125); Potassium 3.9 mmol/L (3.5-5.1); Protein, Total 7.2 g/dL (6.4-8.2); Troponin High Sensitivity 4.9 pg/mL (<58.9)
[2021-12-26 10:34] LABS: Sodium Level 113 mmol/L (136-145)
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
--- NOTE | 2021-12-26 10:46 | EDPHYS ---
Physician Documentation [facility] Name: Jaimie Amanda Age: 61 yrs Sex: Female : 1960 Arrival Date: 12/26/2021 Time: 09:36 Bed 14 Private MD: COSTA Physician Diego Ramirez HPI: 12/26 10:26 This 61 yrs old Female presents to ER via EMS with complaints of abdominal hannah pain and nausea. 10:26 The patient presents with abdominal pain in the epigastric area, in the upper abdomen, hannah abdominal distention in the upper abdomen, in the lower abdomen. Onset: The symptoms/episode began/occurred 3 day(s) ago. The patient presents to the emergency department with nausea, vomiting, abdominal pain, of the epigastric area, right upper quadrant and left upper quadrant. Onset: The symptoms/episode began/occurred 3 day(s) ago. Possible causes: unknown. The symptoms are aggravated by nothing. The symptoms are alleviated by nothing. The symptoms do not radiate. Modifying factors: The symptoms are alleviated by nothing, the symptoms are aggravated by food, movement, pressure. Historical: - Allergies: 09:44 No Known Allergies; jd3 - PMHx: 09:44 Anxiety; Hypertensive disorder; Hypothyroidism; low NA; jd3 - PSHx: 09:44 Thyroidectomy; jd3 - Immunization history:: Adult Immunizations up to date, Client reports receiving the 2nd dose of the Covid vaccine, Flu vaccine is up to date. - Social history:: Smoking status: Patient reports the use of cigarette tobacco products, smokes one-half pack cigarettes per day. - Family history:: not pertinent. ROS: 10:26 Constitutional: Negative for fever, chills, and weight loss, Eyes: Negative for injury, hannah pain, redness, and discharge, ENT: Negative for injury, pain, and discharge, Neck: Negative for injury, pain, and swelling, Cardiovascular: Negative for chest pain, palpitations, and edema, Respiratory: Negative for shortness of breath, cough, wheezing, and pleuritic chest pain, Back: Negative for injury and pain, : Negative for injury, bleeding, discharge, and swelling, MS/Extremity: Negative for injury and deformity, Skin: Negative for injury, rash, and discoloration, Neuro: Negative for headache, weakness, numbness, tingling, and seizure, Endocrine: Negative for neck swelling, polydipsia, polyuria, polyphagia, and marked weight changes, Hematologic/Lymphatic: Negative for swollen nodes, abnormal bleeding, and unusual bruising. 10:26 Abdomen/GI: Positive for abdominal pain, nausea and vomiting, of the right upper quadrant, left upper quadrant, right lower quadrant and left lower quadrant. Exam: 10:26 Constitutional: This is a well developed, well nourished patient who is awake, alert, hannah and in no acute distress. Head/Face: Normocephalic, atraumatic. Eyes: Pupils equal round and reactive to light, extra-ocular motions intact. Lids and lashes normal. Conjunctiva and sclera are non-icteric and not injected. Cornea within normal limits. Periorbital areas with no swelling, redness, or edema. ENT: Nares patent. No nasal discharge, no septal abnormalities noted. Tympanic membranes are normal and external auditory canals are clear. Oropharynx with no redness, swelling, or masses, exudates, or evidence of obstruction, uvula midline. Mucous membranes moist. Neck: Trachea midline, no thyromegaly or masses palpated, and no cervical lymphadenopathy. Supple, full range of motion without nuchal rigidity, or vertebral point tenderness. No Meningismus. Chest/axilla: Normal chest wall appearance and motion. Nontender with no deformity. No lesions are appreciated. Cardiovascular: Regular rate and rhythm with a normal S1 and S2. No gallops, murmurs, or rubs. Normal PMI, no JVD. No pulse deficits. Respiratory: Lungs have equal breath sounds bilaterally, clear to auscultation and percussion. No rales, rhonchi or wheezes noted. No increased work of breathing, no retractions or nasal flaring. Back: No spinal tenderness. No costovertebral tenderness. Full range of motion. Female : Normal external genitalia. Skin: Warm, dry with normal turgor. Normal color with no rashes, no lesions, and no evidence of cellulitis. MS/ Extremity: Pulses equal, no cyanosis. Neurovascular intact. Full, normal range of motion. Neuro: Awake and alert, GCS 15, oriented to person, place, time, and situation. Cranial nerves II-XII grossly intact. Motor strength 5/5 in all extremities. Sensory grossly intact. Cerebellar exam normal. Normal gait. Psych: Awake, alert, with orientation to person, place and time. Behavior, mood, and affect are within normal limits. 10:26 ECG was reviewed by the Attending Physician. 10:26 Respiratory: Exam negative for 10:26 Abdomen/GI: Inspection: distension, that is mild, Bowel sounds: normal, Palpation: mild abdominal tenderness, in all quadrants, Liver: no appreciated palpable abnormalities, Hernia: not appreciated. Vital Signs: 09:46 BP 137 / 78; Pulse 55; Resp 19 S; Temp 97.7(O); Pulse Ox 98% on R/A; Weight 70.31 kg jd3 (R); Height 5 ft. 7 in. (170.18 cm) (R); Pain 9/10; 10:39 BP 141 / 76; Pulse 55; Resp 16; Pulse Ox 98% on R/A; jd3 11:43 BP 168 / 81; Pulse 54; Resp 15 S; Pulse Ox 98% on R/A; jd3 12:35 BP 131 / 74; Pulse 52; Resp 15; Pulse Ox 97% on R/A; jd3 13:42 BP 164 / 83; Pulse 55; Resp 16; Pulse Ox 96% on R/A; jd3 09:46 Body Mass Index 24.28 (70.31 kg, 170.18 cm) jd3 MDM: 09:38 Patient medically screened. hannah 10:30 Differential diagnosis: Nonspecific abd pain, gastritis, pancreatitis, appendicitis, hannah viral gastroenteritis, gastroenteritis, bowel obstruction, cholecystitis, gastritis, gastroesophageal reflux disease, Mesenteric ischemia or infarction, non-specific abd pain, pancreatitis, Peptic Ulcer Disease, Pyelonephritis, urinary tract infection. Data reviewed: vital signs, nurses notes, EMS record, lab test result(s), EKG, radiologic studies, CT scan, plain films. Data interpreted: monitor tech: rate is 55 beats/min, rhythm is regular, Pulse oximetry: on room air is 98 %. Test interpretation: by ED physician or midlevel provider: ECG, plain radiologic studies. Counseling: I had a detailed discussion with the patient and/or guardian regarding: the historical points, exam findings, and any diagnostic results supporting the discharge/admit diagnosis, lab results, radiology results, the need for outpatient follow up, for definitive care, a family practitioner, a caseworker intake. 12/26 09:39 Order name: Basic Metabolic Panel; Complete Time: 10:36 [facility] 12/26 09:39 Order name: CBC with Diff; Complete Time: 10:21 [facility] 12/26 09:39 Order name: LFT's; Complete Time: 10:36 [facility] 12/26 09:39 Order name: Magnesium; Complete Time: 10:36 [facility] 12/26 09:39 Order name: NT PRO-BNP; Complete Time: 10:36 [facility] 12/26 09:39 Order name: PT-INR; Complete Time: 10:21 [facility] 12/26 09:39 Order name: Troponin HS; Complete Time: 10:36 [facility] 12/26 09:39 Order name: Lipase; Complete Time: 10:36 [facility] 12/26 10:37 Order name: Urine Osmolality; Complete Time: 13:38 [facility] 12/26 10:37 Order name: Osmolality, Serum; Complete Time: 13:38 [facility] 12/26 10:37 Order name: Urine Sodium Random; Complete Time: 13:38 [facility] 12/26 10:52 Order name: SARS RAPID; Complete Time: 13:38 em 12/26 11:00 Order name: Urine Dipstick-Ancillary; Complete Time: 13:38 [facility] 12/26 16:59 Order name: Glucose, Ancillary Testing; Complete Time: 18:20 [facility] 12/26 09:39 Order name: XRAY Chest (1 view); Complete Time: 10:36 [facility] 12/26 09:39 Order name: EKG; Complete Time: 09:40 [facility] 12/26 09:39 Order name: Cardiac monitoring; Complete Time: 09:50 [facility] 12/26 09:39 Order name: EKG - Nurse/Tech; Complete Time: 10:07 [facility] 12/26 09:39 Order name: IV Saline Lock; Complete Time: 09:50 [facility] 12/26 09:39 Order name: Labs collected and sent; Complete Time: 09:50 [facility] 12/26 10:37 Order name: Abdomen with Erect XRAY; Complete Time: 13:38 [facility] 12/26 19:52 Order name: Basic Metabolic Panel [facility] 12/26 09:39 Order name: O2 Per Protocol; Complete Time: 09:44 [facility] 12/26 09:39 Order name: O2 Sat Monitoring; Complete Time: 09:44 [facility] 12/26 09:39 Order name: Urine Dipstick-Ancillary (obtain specimen); Complete Time: 11:13 [facility] 12/26 10:37 Order name: Seizure Precautions; Complete Time: 10:39 hannah 12/26 10:45 Order name: IV Saline Lock - Large Bore; Complete Time: 11: hannah EC: Rate is 54 beats/min. Rhythm is regular. QRS [place] is Normal. [place] interval is normal. QRS hannah interval is normal. QT interval is normal. No Q waves. T waves are Normal. No ST changes noted. Clinical impression: Sinus bradycardia and No evidence of ischemia. Interpreted by me. Reviewed by me. Administered Medications: 10:36 Discontinued: NS 0.9% 1000 ml IV at 1 bolus Per protocol; 1000 mL bolus hannah 10:12 Drug: NS 0.9% 1000 ml Route: IV; Rate: 1 bolus; Site: right antecubital; jd3 10:40 Follow up: Response: No adverse reaction; Rate change 100 ml/hr; IV Status: Order to [facility] discontinue infusion 10:12 Drug: Pepcid (famotidine) 20 mg Route: IVP; Site: right antecubital; jd3 10:41 Follow up: Response: No adverse reaction j 10:12 Drug: Zofran (Ondansetron) 4 mg Route: IVP; Site: right antecubital; jd3 10:41 Follow up: Response: No adverse reaction jd3 10:12 Drug: Ativan (LORazepam) 1 mg Route: IVP; Site: right antecubital; jd3 10:41 Follow up: Response: No adverse reaction j 10:40 Drug: NS 0.9% 1000 ml Route: IV; Rate: 100 ml/hr; Site: right antecubital; jd3 14:03 Follow up: Response: No adverse reaction; IV Status: Infusion continued upon admission [id number] 11:22 Drug: Magnesium Sulfate 2 grams Route: IVPB; Infused Over: 2 hrs; Site: right [facility] antecubital; 13:22 Follow up: Response: No adverse reaction; IV Status: Completed infusion; IV Intake: [id number] 20:04 Drug: Ambien (zolpidem) 5 mg Route: PO; Disposition Summary: 12/26/21 10:45 Hospitalization Ordered Hospitalization Status: Inpatient Admission hannah Provider: Olegario Bettencourt cha Location: Telemetry/[facility]Sur (Inpatient) hannah Condition: Fair hannah Problem: new hannah Symptoms: have improved hannah Bed/Room Type: Standard hannah Room Assignment: 408(12/26/21 20:13) mw Diagnosis - Vomiting hannah - Nausea hannah - Hypo-osmolality and hyponatremia hannah - Abdominal pain, Generalized hannah - Weakness hannah - Hypomagnesemia hannah Forms: - Medication Reconciliation Form hannah - SBAR form hannah Signatures: Dispatcher [employer] EDMS Namrata Otero RN RN Rosemarie Chen RN RN Diego Garcia MD MD cha Davies, Jonathon, RN RN jd3 Viridiana Peters, HATCHERY EMPLOYEE HATCHERY EMPLOYEE [id number] Dior Garcia PA-C PARadha [email or web address] Kelly Beavers RN [email or web address] Corrections: (The following items were deleted from the chart) 10:51 10:22 Abdomen Pelvis W Con+CT.RAD.BRZ ordered. EDMS EDMS 20:13 10:45 hannah mw
[2021-12-26 10:59] LABS: Urine Blood Trace-intact (Negative); Urine Glucose Negative (Negative); Urine Protein Negative (Negative)
[2021-12-26] MEDS ORDERED: Magnesium Sulfate 2gm IVPB 2 G/50 ML BAG IV ONE (11:16)
--- NOTE | 2021-12-26 11:20 | RAD REPORT ---
EXAM DESCRIPTION: RAD - Abdomen W Erect - 12/26/2021 11:12 am CLINICAL HISTORY: ABD PAIN COMPARISON: Abdomen W Erect dated 10/04/2021 TECHNIQUE: Supine and upright views of the abdomen were obtained. FINDINGS: Bowel gas pattern is nonspecific with no obstruction, free air or pneumatosis. No abnormal calcifications. No soft tissue abnormality. No significant bony finding. Left convex spinal curvature and elevated right iliac crest may be posit ioning artifacts. IMPRESSION: Negative two-view abdomen examination for acute or significant finding.
[2021-12-26 12:08] LABS: SARS-CoV-2 Antigen Rapid Res Negative (Negative)
--- NOTE | 2021-12-26 12:49 | P.HP ---
Certification for Inpatient Patient admitted to: Inpatient With expected LOS: >2 Midnights Practitioner: I am a practitioner with admitting privileges, knowledge of patient current condition, hospital course, and medical plan of care. Services: Services provided to patient in accordance with Admission requirements found in Title 42 Section 412.3 of the Code of Federal Regulations Patient History Date of Service: 12/26/21 Reason for admission: Abdominal pain and nausea History of Present Illness: 61-year-old woman with a history of epilepsy on Trileptal, multiple hospitalizat ions for hyponatremia presents to the emergency department with a complaint of nausea and vomiting and abdominal pain. Symptoms preceded by generalized weakness. Patient noted to be lethargic this morning and was therefore brought to the emergency department. 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 Patient hospitalized for further management. Allergies No Known Allergies Allergy (Verified 12/14/21 16:45) Home Medications: Benztropine Mesylate [Cogentin] 0.5 mg PO BEDTIME 03/10/21 Doxepin HCl [Sinequan] 50 mg PO BEDTIME 03/10/21 Levothyroxine Sodium [Synthroid] 137 mcg PO DAILY 03/10/21 Linaclotide [Linzess] 72 mcg PO DAILYPRN PRN 03/10/21 Losartan/Hydrochlorothiazide [Losartan-Hctz 100-25 mg Tab] 1 each PO DAILY 03/10/21 Metformin HCl [Glucophage*] 500 mg PO BIDWM 03/10/21 Metoclopramide HCl [Reglan] 10 mg PO QID 03/10/21 OXcarbazepine [Trileptal] 2 tab PO DAILY AFTER SUPPER 03/10/21 OXcarbazepine [Trileptal] 600 mg PO DAILY 03/10/21 Omeprazole [Prilosec] 40 mg PO DAILY 03/10/21 Propranolol [Inderal*] 10 mg PO BIDP PRN 03/10/21 Risperidone [Risperdal] 2 mg PO BID 03/10/21 Zolpidem Tartrate [Ambien*] 10 mg PO BEDTIME 03/10/21 cloNIDine HCL [Catapres*] 0.3 mg PO Q8H 03/10/21 clonazePAM [Klonopin*] 1 mg PO TIDP PRN 03/10/21 ondansetron HCL [Zofran] 4 mg PO Q8HP PRN 03/10/21 Sucralfate [Carafate*] 10 ml PO [id number] 08/07/21 - Past Medical/Surgical History Diabetic: No -: Hepatitis -: Anxiety -: HTN -: Hypothyroidism -: Alcoholic induced seizures -: NIDDM -: Thyroidectomy -: Plastic surgery breast -: hernia repair Psychosocial/ Personal History: Patient lives at home with her mother - Family History Mother -: Hypertension, Diabetes, Cancer Notes: Thyroid, Knee replacement Father -: Heart disease, Hypertension, Diabetes - Social History Alcohol use: Yes CD- Drugs: No Caffeine use: Yes Review of Systems Other: She denies any fever or dysuria or increased urinary frequency. She denie any diarrhea or constipation. She denies any shortness of breath. Except as documented, all other systems reviewed and negative. Physical Examination - Physical Exam General: Alert, In no apparent distress, Oriented x3 HEENT: Mucous membr. moist/pink Neck: Supple, JVD not distended Respiratory: Clear to auscultation bilaterally, Normal air movement Cardiovascular: No edema, Regular rate/rhythm, Normal S1 S2, No murmurs Gastrointestinal: Normal bowel sounds, Soft and benign, Non-distended, No tenderness, No rebound, No guarding Musculoskeletal: No swelling, No tenderness Integumentary: No rashes, No cyanosis Neurological: Normal speech, Normal strength at 5/5 x4 extr, Cranial nerves 3-12 intact Lymphatics: No axilla or inguinal lymphadenopathy - Studies Laboratory Data (last 24 hrs) 12/26/21 09:51: PT 11.2, INR 1.02 12/26/21 09:51: WBC 7.80, Hgb 12.6, Hct 35.8 L, Plt Count 373 12/26/21 09:51: Sodium 113 L*, Potassium 3.9, BUN 10, Creatinine 0.62, Glucose 173 H, Magnesium 1.6 L, Total Bilirubin 0.3, AST 17, ALT 77, Alkaline Phosphatase 99, Lipase 45 L Assessment and Plan - Problems (Diagnosis) (1) Acute hyponatremia Current Visit: No Status: Acute (2) Acute metabolic encephalopathy Current Visit: No Status: Acute (3) Seizure disorder Current Visit: No Status: Acute (4) Alcohol abuse Current Visit: No Status: Chronic (5) Diabetes Current Visit: No Status: Chronic Qualifiers: - Plan Admit patient to the medical floor. The cause of hyponatremia is multifactorial secondary to SIADH and dehydration. Restrict free water to 1200 ml per day IV normal saline-slow rate. Monitor BMP every 4 hours. Clear liquid diet Blood glucose control with insulin sliding scale TSH 2 weeks ago was slightly elevated. Neurology consulted to evaluate patient antiepileptics with regards to recurrent hyponatremia. Neurochecks. DVT prophylaxis with Lovenox. - Advance Directives Does patient have a Living Will: No Does patient have a Durable POA for Healthcare: No
[2021-12-26] MEDS ORDERED: NA CHLORIDE 0.9% 1,000 ML IV SCH (14:05)
[2021-12-26] MEDS ORDERED: ONDANSETRON 4 MG/2 ML VIAL IV PRN (14:05)
[2021-12-26 14:38] VITALS: O2SAT 98
[2021-12-26] MEDS ORDERED: ENOXAPARIN 40 MG/0.4 ML SQ SCH (15:00)
[2021-12-26] MEDS ORDERED: PROMETHAZINE INJ 25 MG/ML AMP ONE (15:39)
[2021-12-26 15:54] VITALS: BMI 24.3
[2021-12-26] MEDS ORDERED: INSULIN -REGULAR HUMAN 50 UNIT/0.5 ML ML SQ SCH (16:30)
[2021-12-26] MEDS ORDERED: PROMETHAZINE INJ 25 MG/ML AMP IV ONE (16:37)
[2021-12-26] MEDS ORDERED: ENOXAPARIN 40 MG/0.4 ML SQ ONE (16:43)
[2021-12-26 17:01] VITALS: BP 161/81
[2021-12-26] MEDS ORDERED: clonazePAM 1 MG TAB PO PRN (18:29)
[2021-12-26] MEDS ORDERED: clonazePAM 1 MG TAB ONE (18:35)
[2021-12-26 19:49] LABS: Potassium 3.7 mmol/L (3.5-5.1)
[2021-12-26] MEDS ORDERED: ZOLPIDEM TARTRATE 5 MG TABLET ONE (19:59)
[2021-12-26 20:26] VITALS: TEMP 97.7
--- NOTE | 2021-12-26 20:50 | P.DS ---
Admission Date: 12/26/21 Discharge Date: 12/26/21 Disposition: AMA-LEFT AGAINST MEDICAL ADVIC Discharge Condition: SERIOUS Reason for Admission: Hyponatremia - Problems (1) Acute hyponatremia Current Visit: Yes Status: Acute (2) Altered mental status Current Visit: Yes Status: Acute Qualifiers: Altered mental status type: unspecified Qualified Code(s): R41.82 - Altered mental status, unspecified Brief History of Present Illness: 61-year-old woman with a history of epilepsy on Trileptal, multiple hospitalizations for hyponatremia presents to the emergency department with a complaint of nausea and vomiting and abdominal pain. Symptoms preceded by generalized weakness. Patient noted to be lethargic this morning and was therefore brought to the emergency department. 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 Patient hospitalized for further management. Hospital Course: The cause of hyponatremia is multifactorial secondary to SIADH and dehydration. Restrict free water to 1200 ml per day. IV normal saline-slow rate. Repeat BMP with sodium improved from 113 to 118 and chloride from 80 to 84. Patient's mental status improved. She was alert and oriented x 3. Patient reporting anxiety and was given klonopin however she stated that it wasn't enough and she wanted to go home and take her own medications. I educated patient on the importance of her staying to correct her sodium, but she was adamant about leaving. Patient signed out AMA. Vital Signs/Physical Exam: Temp Pulse Resp BP Pulse Ox 97.7 F 61 13 161/81 H 96 12/26/21 09:46 12/26/21 16:00 12/26/21 16:00 12/26/21 16:00 12/26/21 16:00 Laboratory Data at Discharge: WBC 7.80 K/uL (4.3-10.9) 12/26/21 09:51 Hgb 12.6 g/dL (12.0-15.0) 12/26/21 09:51 Hct 35.8 % (36.0-45.0) L 12/26/21 09:51 Plt Count 373 K/uL (152-406) 12/26/21 09:51 PT 11.2 SECONDS (9.5-12.5) 12/26/21 09:51 INR 1.02 12/26/21 09:51 Sodium 118 mmol/L (136-145) L* D 12/26/21 19:18 Potassium 3.7 mmol/L (3.5-5.1) 12/26/21 19:18 BUN 6 mg/dL (7-18) L 12/26/21 19:18 Creatinine 0.68 mg/dL (0.55-1.3) 12/26/21 19:18 Glucose 147 mg/dL (74-106) H 12/26/21 19:18 Magnesium 1.6 mg/dL (1.8-2.4) L 12/26/21 09:51 Total Bilirubin 0.3 mg/dL (0.2-1.0) 12/26/21 09:51 AST 17 U/L (15-37) 12/26/21 09:51 ALT 77 U/L (12-78) 12/26/21 09:51 Alkaline Phosphatase 99 U/L (45-117) 12/26/21 09:51 Lipase 45 U/L (73-393) L 12/26/21 09:51 Home Medications: Benztropine Mesylate [Cogentin] 0.5 mg PO BEDTIME 03/10/21 Doxepin HCl [Sinequan] 50 mg PO BEDTIME 03/10/21 Levothyroxine Sodium [Synthroid] 137 mcg PO DAILY 03/10/21 Linaclotide [Linzess] 72 mcg PO DAILYPRN PRN 03/10/21 Losartan/Hydrochlorothiazide [Losartan-Hctz 100-25 mg Tab] 1 each PO DAILY 03/10/21 Metformin HCl [Glucophage*] 500 mg PO BIDWM 03/10/21 Metoclopramide HCl [Reglan] 10 mg PO QID 03/10/21 OXcarbazepine [Trileptal] 2 tab PO DAILY AFTER SUPPER 03/10/21 OXcarbazepine [Trileptal] 600 mg PO DAILY 03/10/21 Omeprazole [Prilosec] 40 mg PO DAILY 03/10/21 Propranolol [Inderal*] 10 mg PO BIDP PRN 03/10/21 Risperidone [Risperdal] 2 mg PO BID 03/10/21 Zolpidem Tartrate [Ambien*] 10 mg PO BEDTIME 03/10/21 cloNIDine HCL [Catapres*] 0.3 mg PO Q8H 03/10/21 clonazePAM [Klonopin*] 1 mg PO TIDP PRN 03/10/21 ondansetron HCL [Zofran] 4 mg PO Q8HP PRN 03/10/21 Sucralfate [Carafate*] 10 ml PO [facility] #[id number] 08/07/21 Followup: Unknown,U [Primary Care Provider] -
--- NOTE | 2021-12-28 16:58 | EKG ---
Test Date: 2021-12-26 Test Time: 09:58:47 Electric Welder Helper: RICARDO MEASUREMENT RESULTS: Intervals: Rate: 54 NV: 208 QRSD: 94 QT: 478 QTc: 453 [place]: P: 37 NV: 208 QRS: 22 T: 73 INTERPRETIVE STATEMENTS: Sinus bradycardia Otherwise normal ECG Compared to ECG 12/14/2021 16:36:03 Sinus rhythm no longer present Electronically Signed On 12-28-21 16:54:43 CDT by Brian Booker
== END 2021-12-26 20:00 | disposition left against medical advice (07) | DRG 643 ==
LOC: ER 09:34 → ERHOLD 12:39
PROVIDERS: ADMIT Internal Medicine; ATTEND Internal Medicine
DX: E22.2 Syndrome of inappropriate secretion of antidiuretic hormone (principal); G93.41 Metabolic encephalopathy; E86.0 Dehydration; E03.9 Hypothyroidism, unspecified; I10 Essential (primary) hypertension; F10.10 Alcohol abuse, uncomplicated; E11.9 Type 2 diabetes mellitus without complications; E83.42 Hypomagnesemia; G40.909 Epilepsy, unspecified, not intractable, without status epilepticus; F17.210 Nicotine dependence, cigarettes, uncomplicated; Z53.29 Procedure and treatment not carried out because of patient's decision for other reasons; Z79.84 Long term (current) use of oral hypoglycemic drugs; Z79.899 Other long term (current) drug therapy; Z79.890 Hormone replacement therapy; Z20.822 Contact with and (suspected) exposure to COVID-19
CPT/HCPCS: 36415; 71045; 74019; 80048; 80076; 81003; 82947; 83690; 83735; 83880; 83930; 83935; 84300; 84484; 85025; 85610; 87811; 93005; 96361; 96365; 96366; 96375; 99281; 99285; J1650; J2405; J2550; J3475; J7030

== ENCOUNTER 2021-12-27 07:18 | Inpatient (IN) | payer OTHER ==
--- OUTSIDE RECORDS SUMMARY | 2021-12-27 07:27 | XMS REPORT | Continuity of Care Document ---
:1960 Author Organization [facility] t Address [address] [place] [address] Care Team Providers Name Role Phone [facility] Primary Care Physician MATT SIMPSON Attending Clinician Unavailable MATT SIMPSON Attending Clinician Unavailable Doctor Unassigned, [place] Attending Clinician Unavailable WALLY KRISHNAMURTHY Attending Clinician Unavailable Gramm Natacha CLARK Attending Clinician Payers Payer Name Policy Type Policy Number Effective Date Expiration Date Sarina castelan [facility] [id number] 2017 00:00:00 PLUS Problems This patient has [...] s TRANSDER 5- ity of MAL 00:00: [place] [facility] ACETAMIN DRUG Active Other-Cmnt Univ ers OPHEN INGREDI 07-27 ity of 00:00: [place] [address] [facility] Hmg-Coa Propensi Inactiv Reductas ty to e 2-28 e adverse 00:00: Inhibito reaction 00 rs to drug Nitrogly Propensi Active 2017-03 cerin ty to 1-08 adverse 00:00: reaction 00 to drug Social History Social Habit Start Date Stop Date Quantity Comments Source Alcohol intake 2016-05-01 2016-05-01 Current [facility] es 00:00:00 00:00:00 non-drinker of Medical nter alcohol (finding) Sex Assigned At [birth year] [facility] 00:00:00 00:00:00 [facility] Smoking Status Start Date Stop Date Source Current every day smoker 2016-05-01 00:00:00 [facility] Medications Ordered Filled Start Stop Current [...] capsule 00:00: 00 OXcarbazepi 0 Yes 600mg Q.[id number] Take [address] [address] ne 2-23 [id number] [facility] (TR[facility]) 10:23: 3D mouth 3 Med ical 600 MG 59 (three) Center tablet times daily. PARoxetine 2017-0 Yes 40mg QD Take [address] (PAXIL) 40 2-23 [facility] tablet 10:23: nightly. Medi anjelica [facility] Center OXcarbazepi 2016-0 Yes 600mg Q.13691295 Take [address] ne 2-23 [id number] [facility] (TRILEPTAL) 10:23: 3D mouth 3 Med ical 600 MG 59 (three) Center tablet times daily. PARoxetine 2017-0 Yes 40mg QD Take [address] (PAXIL) 40 2-23 [facility] tablet 10:23: nightly. [facility]i anjelica [facility] Center OXcarbazepi 2017-0 Yes 600mg Q.41898873 Take [address] ne 2-23 [id number] [facility] (TRILEPTAL) 10:23: 3D mouth 3 Med ical 600 MG 59 (three) Center tablet times daily. PARoxetine 2017-0 Yes 40mg QD Take [address] (PAXIL) 40 2-23 [facility] tablet 10:23: nightly. Medi anjelica [facility] Center OXcarbazepi 2017-0 Yes 600mg Q.26290314 Take [address] ne 2-23 [id number] [facility] (TRILEPTAL) 10:23: 3D mouth 3 Med ical 600 MG 59 (three) Center tablet times daily. PARoxetine 2017-0 Yes 40mg QD Take [address] (PAXIL) 40 2-23 [facility] tablet 10:23: nightly. [address] OXcarbazepi 2017-0 Yes 600mg Q.66930911 Take [address] ne 2-23 [id number] [facility] (TRILEPTAL) 10:23: 3D mouth 3 Med ical 600 MG 59 (three) Center tablet times daily. PARoxetine 2017-0 Yes 40mg QD Take [address] (PAXIL) 40 2-23 by [facility] tablet 10:23: nightly. [address] OXcarbazepi 2017-0 Yes 600mg Q.17756293 Take [address] ne 2-23 [id number] [facility] (TRILEPTAL) 10:23: 3D mouth 3 Med ical 600 MG 59 (three) Center tablet times daily. PARoxetine 2017-0 Yes 40mg QD Take [address] (PAXIL) 40 2-23 [facility] tablet 10:23: nightly. [address] LORazepam 2017-0 Yes 1mg Take 1 [facility] [...] Goal Plan of Care Note [code = 45229-4] Goal Plan of Care Note [code = 12996-9] Goal Plan of Care Note [code = 33972-1] Goal Plan of Care Note [code = 17599-8] Goal Plan of Care Note [code = 99277-5] Goal Plan of Care Note [code = 22384-0] Goal Plan of Care Note [code = 89988-4] Goal Plan of Care Note [code = 20551-4] Goal Plan of Care Note [code = 06194-8] Goal Plan of Care Note [code = 80300-4] Goal Plan of Care Note [code = 40450-4] Goal Plan of Care Note [code = 40142-1] Goal Plan of Care Note [code = 12356-0] Goal Plan of Care Note [code = 31579-1] Goal Plan of Care Note [code = 35238-3] Goal Plan of Care Note [code = 12054-1] Goal Plan of Care Note [code = 24171-1] Goal Plan of Care Note [code = 73827-5] Goal Plan of Care Note [code = 83448-1] Goal Plan of Care Note [code = 53735-0] Goal Plan of Care Note [code = 60180-5] Goal Plan of Care Note [code = 97135-4] Goal Plan of Care Note [code = 03633-9] Goal Plan of Care Note [code = 64600-3] Goal Plan of Care Note [code = 61518-9] Goal Plan of Care Note [code = 90041-5] Goal Plan of Care Note [code = 60215-8] Goal Plan of Care Note [code = 87800-9] Goal Plan of Care Note [code = 70685-1] Goal Plan of Care Note [code = 29516-9] Goal Plan of Care Note [code = 88657-1] Goal Plan of Care Note [code = 85930-5] Goal Plan of Care Note [code = 86040-3] Goal Plan of Care Note [code = 65267-5] Goal Plan of Care Note [code = 59808-4] Goal Plan of Care Note [code = 47444-2] Goal Plan of Care Note [code = 58445-0] Goal Plan of Care Note [code = 92952-4] Goal Plan of Care Note [code = 09203-3] Goal Plan of Care Note [code = 83627-4] Goal Plan of Care Note [code = 07541-3] Goal Plan of Care Note [code = 01970-9] Goal Plan of Care Note [code = 89372-1] Goal Plan of Care Note [code = 46699-1] Goal Plan of Care Note [code = 55924-4] Goal Plan of Care Note [code = 78805-0] Goal Plan of Care Note [code = 35060-7] Goal Plan of Care Note [code = 15599-0] Goal Plan of Care Note [code = 80159-0] Goal Plan of Care Note [code = 34743-6] Goal Plan of Care Note [code = 31124-1] Goal Plan of Care Note [code = 81988-1] Goal Plan of Care Note [code = 97420-7] Goal Plan of Care Note [code = 61335-8] Goal Plan of Care Note [code = 39054-3] Goal Plan of Care Note [code = 58187-2] Goal Plan of Care Note [code = 34706-2] Goal Plan of Care Note [code = 56149-2] Goal Plan of Care Note [code = 37888-2] Goal Plan of Care Note [code = 39190-6] Goal Plan of Care Note [code = 70108-3] Goal Plan of Care Note [code = 48104-7] Goal Plan of Care Note [code = 86455-6] Goal Plan of Care Note [code = 07763-3] Goal Plan of Care Note [code = 36333-3] Goal Plan of Care Note [code = 38837-1] Goal Plan of Care Note [code = 95527-1] Goal Plan of Care Note [code = 92840-0] Goal Plan of Care Note [code = 15576-3] Goal Plan of Care Note [code = 73693-7] Goal Plan of Care Note [code = 94125-6] Goal Plan of Care Note [code = 81596-4] Goal Plan of Care Note [code = 60918-3] Goal Plan of Care Note [code = 94352-4] Goal Plan of Care Note [code = 00804-2] Goal Plan of Care Note [code = 22328-8] Goal Plan of Care Note [code = 55912-8] Goal Plan of Care Note [code = 17085-8] Goal Plan of Care Note [code = 88245-7] Goal Plan of Care Note [code = 40303-6] Goal Plan of Care Note [code = 53899-9] Goal Plan of Care Note [code = 32944-8] Goal Plan of Care Note [code = 28056-1] Goal Plan of Care Note [code = 17676-8] Goal Plan of Care Note [code = 71346-6] Goal Plan of Care Note [code = 28048-4] Goal Plan of Care Note [code = 03056-1] Goal Plan of Care Note [code = 70511-9] Goal Plan of Care Note [code = 52159-3] Goal Plan of Care Note [code = 62563-1] Goal Plan of Care Note [code = 19034-1] Goal Plan of Care Note [code = 58604-6] Goal Plan of Care Note [code = 34440-5] Goal Plan of Care Note [code = 80601-0] Goal Plan of Care Note [code = 35374-4] Goal Plan of Care Note [code = 98403-5] Goal Plan of Care Note [code = 86929-1] Goal Plan of Care Note [code = 28680-8] Goal Plan of Care Note [code = 36121-1] Goal Plan of Care Note [code = 06120-3] Goal Plan of Care Note [code = 87648-2] Goal Plan of Care Note [code = 97013-8] Encounters Start End Encounter Admission Attending Care Care Encounter Source Date/Time Date/Time Type Type Clinicians Facility Department ID 2021-06-01 Outpatient [facility] [place] [id number] Skylar 01:36:29 [id number] [facility] 2021-12-19 2021-12-19 Outpatient [facility] LYDIA [id number] Cristian 16:11:31 16:11:31 Naseem Stoll 2021-12-19 2021-12-19 Outpatient [id number]- [id number] [id number] 00:00:00 00:00:00 Visit [id number] 770-441f-a -adae-62b amelia-62bace udojq38cm fd81af 2021-09-17 2021-09-17 Outpatient zmb1ewnc- [id number] t8mzya-5 00:00:00 00:00:00 Visit 935a-4f50 35a-4f50-b -h11y-g7w 77d-c2ba85 [id number] 1264a6 2020-08-03 2020-08-03 Outpatient MATT VÁSQUEZ [facility] [id number] Univers 10:00:00 10:00:00 MATT SIMPSON [facility] 2020-07-25 2020-07-25 Orders Doctor ABE [id number] 00:00:00 00:00:00 Only UnassignedBK 350.1.13.10 [place] [facility] 4.2.7.2.686 [id number] 2019-09-26 2019-09-26 Outpatient Bertin KRISHNAMURTHY [facility] [id number] Univers 16:00:00 16:00:00 WALLY [facility] 2018-10-21 2018-10-21 Telephone [facility] [id number] 00:00:00 00:00:00 Natacha Nguyen 350.1.13.10 Ade 4.2.7.2.686 [place] [id number] [address] Results Test Description Test Time Test Comments Results Result Comments Source TSH, THIRD GENERATION 2021-06-27 05:15:49 Test Item Value Reference Range Interpretation Comme nts TSH, THIRD GENERATION (test code = 2821) 2.080 UIU/ML 0.400-4.100 HEMOGLOBIN [id number] 03:46:00 Test Item Value Reference Range Interpretation Comments HEMOGLOBIN A1c (test 6.6 % 4.2-5.6 H AMERIC AN DIABETES code = 69659) ASSOCIATION IDELINES FOR HGB A1C: PREDIABETES/INC REASED [...] PER FORMED AT[facility], I MD. [address], [place] [address] LABORATORY DIRE CTOR: DIANA RUSS M.D. CLIA NUMBER [id number] [facility] [place]. [id number] LIPID [id number] 02:59:52 Test Item Value Reference Range Interpretation [...] MOREINFORMATION , SEE CLIENT ANNOUNCE MENT AT [email or web address] RISK RATIO LDL/HDL 4.02 RATIO <3.22 H (test code = 2238) [id number] 00:00:00 Test Item Value Reference Range Interpretation Comments TSH, THIRD GENERATION (test code 2.080 UIU/ML = 2821) [id number] 00:00:00 Test Item Value Reference Range Interpretation Comments TSH, THIRD GENERATION (test code 2.080 UIU/ML = 2821) LIPID [id number] 00:00:00 Test Item Value Reference Range Interpretation Comments CHOLESTEROL (test code = 2210) 292 MG/DL TRIGLYCERIDES (test code = 2232) 184 MG/DL HDL CHOLESTEROL (test code = 2220) 51 MG/DL CALC LDL CHOL (test code = 2237) 205 MG/DL RISK RATIO LDL/HDL (test code = 4.02 RATIO 2238) HEMOGLOBIN [id number] 00:00:00 Test Item Value Reference Range Interpretation Comments HEMOGLOBIN A1c (test code = 18248) 6.6 % HEMOGLOBIN [id number] 00:00:00 Test Item Value Reference Range Interpretation Comments HEMOGLOBIN A1c (test code = 66834) 6.6 % [id number] 00:00:00 Test Item Value Reference Range Interpretation Comments TSH, THIRD GENERATION (test code 2.080 UIU/ML = 2821) [id number] 00:00:00 Test Item Value Reference Range Interpretation Comments TSH, THIRD GENERATION (test code 2.080 UIU/ML = 2821) [id number] 00:00:00 Test Item Value Reference Range Interpretation Comments TSH, THIRD GENERATION (test code 2.080 UIU/ML = 2821) LIPID [id number] 00:00:00 Test Item Value Reference Range Interpretation Comments CHOLESTEROL (test code = 2210) 292 MG/DL TRIGLYCERIDES (test code = 2232) 184 MG/DL HDL CHOLESTEROL (test code = 2220) 51 MG/DL CALC LDL CHOL (test code = 2237) 205 MG/DL RISK RATIO LDL/HDL (test code = 4.02 RATIO 2238) LIPID [id number] 00:00:00 Test Item Value Reference Range Interpretation Comments CHOLESTEROL (test code = 2210) 292 MG/DL TRIGLYCERIDES (test code = 2232) 184 MG/DL HDL CHOLESTEROL (test code = 2220) 51 MG/DL CALC LDL CHOL (test code = 2237) 205 MG/DL RISK RATIO LDL/HDL (test code = 4.02 RATIO 2238) HEMOGLOBIN [id number] 00:00:00 Test Item Value Reference Range Interpretation Comments HEMOGLOBIN A1c (test code = 18017) 6.6 % HEMOGLOBIN [id number] 00:00:00 Test Item Value Reference Range Interpretation Comments HEMOGLOBIN A1c (test code = 39336) 6.6 % HEMOGLOBIN [id number] 00:00:00 Test Item Value Reference Range Interpretation Comments HEMOGLOBIN A1c (test code = 82949) 6.6 % HEMOGLOBIN [id number] 00:00:00 Test Item Value Reference Range Interpretation Comments HEMOGLOBIN A1c (test code = 37881) 6.8 % HEMOGLOBIN [id number] 00:00:00 Test Item Value Reference Range Interpretation Comments HEMOGLOBIN A1c (test code = 53055) 6.8 % LIPID [id number] 00:00:00 Test Item Value Reference Range Interpretation Comments CHOLESTEROL (test code = 2210) 303 MG/DL TRIGLYCERIDES (test code = 2232) 191 MG/DL HDL CHOLESTEROL (test code = 2220) 61 MG/DL CALC LDL CHOL (test code = 2237) 205 MG/DL RISK RATIO LDL/HDL (test code = 3.36 RATIO 2238) [id number] 00:00:00 Test Item Value Reference Range Interpretation Comments TSH, THIRD GENERATION (test code 0.769 UIU/ML = 2821) [id number] 00:00:00 Test Item Value Reference Range Interpretation Comments TSH, THIRD GENERATION (test code 0.769 UIU/ML = 2821) COMPREHENSIVE METABOLIC [id number] 00:00:00 Test Item Value Reference Range Interpretation Comments GLUCOSE (test code = 2217) 131 MG/DL BUN (test code = 2208) 13 MG/DL CREATININE (test code = 2214) 0.65 MG/DL eGFR AMER. (test code 113 ML/MIN/1.73 = 81851) eGFR NON- AMER. (test 97 ML/MIN/1.73 code = 63718) CALC BUN/CREAT (test code = 20 RATIO [...] (test code = 2219) 23 U/L HEMOGLOBIN [id number] 00:00:00 Test Item Value Reference Range Interpretation Comments HEMOGLOBIN A1c (test code = 73625) 6.8 % HEMOGLOBIN [id number] 00:00:00 Test Item Value Reference Range Interpretation Comments HEMOGLOBIN A1c (test code = 06348) 6.8 % HEMOGLOBIN [id number] 00:00:00 Test Item Value Reference Range Interpretation Comments HEMOGLOBIN A1c (test code = 35673) 6.8 % LIPID [id number] 00:00:00 Test Item Value Reference Range Interpretation Comments CHOLESTEROL (test code = 2210) 303 MG/DL TRIGLYCERIDES (test code = 2232) 191 MG/DL HDL CHOLESTEROL (test code = 2220) 61 MG/DL CALC LDL CHOL (test code = 2237) 205 MG/DL RISK RATIO LDL/HDL (test code = 3.36 RATIO 2238) LIPID [id number] 00:00:00 Test Item Value Reference Range Interpretation Comments CHOLESTEROL (test code = 2210) 303 MG/DL TRIGLYCERIDES (test code = 2232) 191 MG/DL HDL CHOLESTEROL (test code = 2220) 61 MG/DL CALC LDL CHOL (test code = 2237) 205 MG/DL RISK RATIO LDL/HDL (test code = 3.36 RATIO 2238) [id number] 00:00:00 Test Item Value Reference Range Interpretation Comments TSH, THIRD GENERATION (test code 0.769 UIU/ML = 2821) [id number] 00:00:00 Test Item Value Reference Range Interpretation Comments TSH, THIRD GENERATION (test code 0.769 UIU/ML = 2821) [id number] 00:00:00 Test Item Value Reference Range Interpretation Comments TSH, THIRD GENERATION (test code 0.769 UIU/ML = 2821) COMPREHENSIVE METABOLIC [id number] 00:00:00 Test Item Value Reference Range Interpretation Comments GLUCOSE (test code = 2217) 131 MG/DL BUN (test code = 2208) 13 MG/DL CREATININE (test code = 2214) 0.65 MG/DL eGFR AMER. (test code 113 ML/MIN/1.73 = 39489) eGFR NON- AMER. (test 97 ML/MIN/1.73 code = 43787) CALC BUN/CREAT (test code = 20 RATIO 2235) SODIUM (test code = 2231) 131 MEQ/L POTASSIUM (test code = 2228) 4.5 MEQ/L CHLORIDE (test code = 2215) 92 MEQ/L CARBON DIOXIDE (test code = 24 MEQ/L 2205) CALCIUM (test code = 2209) 9.5 MG/DL PROTEIN, TOTAL (test code = 7.5 G/DL 222) ALBUMIN (test code = 2201) 4.9 G/DL CALC GLOBULIN (test code = 2.6 G/DL 2240) CALC A/G RATIO (test code = 1.9 RATIO 2234) BILIRUBIN, TOTAL (test code = <0.2 MG/DL 2206) ALKALINE PHOSPHATASE (test 139 U/L code = 2204) AST (test code = 2218) 17 U/L ALT (test code = 2219) 23 U/L COMPREHENSIVE METABOLIC [id number] 00:00:00 Test Item Value Reference Range Interpretation Comments GLUCOSE (test code = 2217) 131 MG/DL BUN (test code = 2208) 13 MG/DL CREATININE (test code = 2214) 0.65 MG/DL eGFR AMER. (test code 113 ML/MIN/1.73 = 54518) eGFR NON- AMER. (test 97 ML/MIN/1.73 code = 21180) CALC BUN/CREAT (test code = 20 RATIO [...] (test code = 2219) 23 U/L HEMOGLOBIN [id number] 00:00:00 Test Item Value Reference Range Interpretation Comments HEMOGLOBIN A1c (test code = 43319) 6.6 % HEMOGLOBIN [id number] 00:00:00 Test Item Value Reference Range Interpretation Comments HEMOGLOBIN A1c (test code = 80566) 6.6 % LIPID [id number] 00:00:00 Test Item Value Reference Range Interpretation Comments CHOLESTEROL (test code = 2210) 261 MG/DL TRIGLYCERIDES (test code = 2232) 159 MG/DL HDL CHOLESTEROL (test code = 2220) 82 MG/DL CALC LDL CHOL (test code = 2237) 150 MG/DL RISK RATIO LDL/HDL (test code = 1.83 RATIO 2238) COMPREHENSIVE METABOLIC [id number] 00:00:00 Test Item Value Reference Range Interpretation Comments GLUCOSE (test code = 2217) 144 MG/DL BUN (test code = 2208) 15 MG/DL CREATININE (test code = 2214) 0.85 MG/DL eGFR AMER. (test code 87 ML/MIN/1.73 = 97403) eGFR NON- AMER. (test 75 ML/MIN/1.73 code = 61673) CALC BUN/CREAT (test code = 18 RATIO [...] THYROX. BIND. CAPAC. (test code 1.1 = 87685) T4 (THYROXINE) (test code = 4.3 UG/DL 2819) CORRECTED T4 (FTI) (test code = 3.9 UG/DL 2820) TSH, THIRD GENERATION (test 18.900 UIU/ML code = 2821) HEMOGLOBIN [id number] 00:00:00 Test Item Value Reference Range Interpretation Comments HEMOGLOBIN A1c (test code = 19560) 6.6 % HEMOGLOBIN [id number] 00:00:00 Test Item Value Reference Range Interpretation Comments HEMOGLOBIN A1c (test code = 83949) 6.6 % HEMOGLOBIN [id number] 00:00:00 Test Item Value Reference Range Interpretation Comments HEMOGLOBIN A1c (test code = 97208) 6.6 % LIPID [id number] 00:00:00 Test Item Value Reference Range Interpretation Comments CHOLESTEROL (test code = 2210) 261 MG/DL TRIGLYCERIDES (test code = 2232) 159 MG/DL HDL CHOLESTEROL (test code = 2220) 82 MG/DL CALC LDL CHOL (test code = 2237) 150 MG/DL RISK RATIO LDL/HDL (test code = 1.83 RATIO 2238) LIPID [id number] 00:00:00 Test Item Value Reference Range Interpretation Comments CHOLESTEROL (test code = 2210) 261 MG/DL TRIGLYCERIDES (test code = 2232) 159 MG/DL HDL CHOLESTEROL (test code = 2220) 82 MG/DL CALC LDL CHOL (test code = 2237) 150 MG/DL RISK RATIO LDL/HDL (test code = 1.83 RATIO 2238) COMPREHENSIVE METABOLIC [id number] 00:00:00 Test Item Value Reference Range Interpretation Comments GLUCOSE (test code = 2217) 144 MG/DL BUN (test code = 2208) 15 MG/DL CREATININE (test code = 2214) 0.85 MG/DL eGFR AMER. (test code 87 ML/MIN/1.73 = 35665) eGFR NON- AMER. (test 75 ML/MIN/1.73 code = 47244) CALC BUN/CREAT (test code = 18 RATIO 2235) SODIUM (test code = 2231) 133 MEQ/L POTASSIUM (test code = 2228) 4.5 MEQ/L CHLORIDE (test code = 2215) 93 MEQ/L CARBON DIOXIDE (test code = 28 MEQ/L 2205) CALCIUM (test code = 2209) 9.7 MG/DL PROTEIN, TOTAL (test code = 7.5 G/DL 2229) ALBUMIN (test code = 2201) 5.0 G/DL CALC GLOBULIN (test code = 2.5 G/DL 2240) CALC A/G RATIO (test code = 2.0 RATIO 2234) BILIRUBIN, TOTAL (test code = <0.2 MG/DL 2206) ALKALINE PHOSPHATASE (test 117 U/L code = 2204) AST (test code = 2218) 27 U/L ALT (test code = 2219) 50 U/L COMPREHENSIVE METABOLIC [id number] 00:00:00 Test Item Value Reference Range Interpretation Comments GLUCOSE (test code = 2217) 144 MG/DL BUN (test code = 2208) 15 MG/DL CREATININE (test code = 2214) 0.85 MG/DL eGFR AMER. (test code 87 ML/MIN/1.73 = 00074) eGFR NON- AMER. (test 75 ML/MIN/1.73 code = 61169) CALC BUN/CREAT (test code = 18 RATIO [...] THYROX. BIND. CAPAC. (test code 1.1 = 79253) T4 (THYROXINE) (test code = 4.3 UG/DL 281) CORRECTED T4 (FTI) (test code = 3.9 UG/DL 2820) TSH, THIRD GENERATION (test 18.900 UIU/ML code = 2821) THYROID II PROFILE (T3U, T4, T7, TSH)[id number] 00:00:00 Test Item Value Reference Range Interpretation Comments T-UPTAKE (test code = 2817) 30.2 % THYROX. BIND. CAPAC. (test code 1.1 = 27056) T4 (THYROXINE) (test code = 4.3 UG/DL 2819) CORRECTED T4 (FTI) (test code = 3.9 UG/DL 2820) TSH, THIRD GENERATION (test 18.900 UIU/ML code = 2821) HEMOGLOBIN [id number] 00:00:00 Test Item Value Reference Range Interpretation Comments HEMOGLOBIN A1c (test code = 48546) 6.7 % HEMOGLOBIN [id number] 00:00:00 Test Item Value Reference Range Interpretation Comments HEMOGLOBIN A1c (test code = 09529) 6.7 % LIPID [id number] 00:00:00 Test Item Value Reference Range Interpretation Comments CHOLESTEROL (test code = 2210) 267 MG/DL TRIGLYCERIDES (test code = 2232) 137 MG/DL HDL CHOLESTEROL (test code = 2220) 48 MG/DL CALC LDL CHOL (test code = 2237) 192 MG/DL RISK RATIO LDL/HDL (test code = 4.00 RATIO 2238) COMPREHENSIVE METABOLIC [id number] 00:00:00 Test Item Value Reference Range Interpretation Comments GLUCOSE (test code = 2217) 155 MG/DL BUN (test code = 2208) 14 MG/DL CREATININE (test code = 2214) 0.52 MG/DL eGFR AMER. (test code 122 ML/MIN/1.73 = 92661) eGFR NON- AMER. (test 105 ML/MIN/1.73 code = 74045) CALC BUN/CREAT (test code = 27 RATIO 2235) SODIUM (test code = 2231) 142 MEQ/L POTASSIUM (test code = 2228) 4.4 MEQ/L CHLORIDE (test code = 2215) 104 MEQ/L CARBON DIOXIDE (test code = 25 MEQ/L 2206) CALCIUM (test code = 2209) 9.2 MG/DL [...] THYROX. BIND. CAPAC. (test code 1.0 = 68290) T4 (THYROXINE) (test code = 4.7 UG/DL 2819) CORRECTED T4 (FTI) (test code = 4.7 UG/DL 2820) TSH, THIRD GENERATION (test code 0.201 UIU/ML = 2821) HEMOGLOBIN [id number] 00:00:00 Test Item Value Reference Range Interpretation Comments HEMOGLOBIN A1c (test code = 06424) 6.7 % HEMOGLOBIN [id number] 00:00:00 Test Item Value Reference Range Interpretation Comments HEMOGLOBIN A1c (test code = 58619) 6.7 % HEMOGLOBIN [id number] 00:00:00 Test Item Value Reference Range Interpretation Comments HEMOGLOBIN A1c (test code = 03023) 6.7 % LIPID [id number] 00:00:00 Test Item Value Reference Range Interpretation Comments CHOLESTEROL (test code = 2210) 267 MG/DL TRIGLYCERIDES (test code = 2232) 137 MG/DL HDL CHOLESTEROL (test code = 2220) 48 MG/DL CALC LDL CHOL (test code = 2237) 192 MG/DL RISK RATIO LDL/HDL (test code = 4.00 RATIO 2238) LIPID [id number] 00:00:00 Test Item Value Reference Range Interpretation Comments CHOLESTEROL (test code = 2210) 267 MG/DL TRIGLYCERIDES (test code = 2232) 137 MG/DL HDL CHOLESTEROL (test code = 2220) 48 MG/DL CALC LDL CHOL (test code = 2237) 192 MG/DL RISK RATIO LDL/HDL (test code = 4.00 RATIO 2238) COMPREHENSIVE METABOLIC [id number] 00:00:00 Test Item Value Reference Range Interpretation Comments GLUCOSE (test code = 2217) 155 MG/DL BUN (test code = 2208) 14 MG/DL CREATININE (test code = 2214) 0.52 MG/DL eGFR AMER. (test code 122 ML/MIN/1.73 = 03745) eGFR NON- AMER. (test 105 ML/MIN/1.73 code = 97888) CALC BUN/CREAT (test code = 27 RATIO [...] code = 2219) 27 U/L COMPREHENSIVE METABOLIC [id number] 00:00:00 Test Item Value Reference Range Interpretation Comments GLUCOSE (test code = 2217) 155 MG/DL BUN (test code = 2208) 14 MG/DL CREATININE (test code = 2214) 0.52 MG/DL eGFR AMER. (test code 122 ML/MIN/1.73 = 90551) eGFR NON- AMER. (test 105 ML/MIN/1.73 code = 02649) CALC BUN/CREAT (test code = 27 RATIO [...] THYROX. BIND. CAPAC. (test code 1.0 = 38359) T4 (THYROXINE) (test code = 4.7 UG/DL 2819) CORRECTED T4 (FTI) (test code = 4.7 UG/DL 2820) TSH, THIRD GENERATION (test code 0.201 UIU/ML = 2821) THYROID II PROFILE (T3U, T4, T7, TSH)2019 00:00:00 Test Item Value Reference Range Interpretation Comments T-UPTAKE (test code = 2817) 33.1 % THYROX. BIND. CAPAC. (test code 1.0 = 71593) T4 (THYROXINE) (test code = 4.7 UG/DL 2819) CORRECTED T4 (FTI) (test code = 4.7 UG/DL 2820) TSH, THIRD GENERATION (test code 0.201 UIU/ML = 2821) SARS-CoV-2 (COVID-19) by RT-PCR (HIGH RISK)2019-09-18 00:00:00 Test Item Value Reference Range Interpretation Comments SARS-CoV-2 INTERPRETATION (test NEGATIVE code = 60923) SOURCE (test code = 15028) NOT SPECIFIED SARS-CoV-2 (COVID-19) by RT-PCR (HIGH RISK)2019-09-18 00:00:00 Test Item Value Reference Range Interpretation Comments SARS-CoV-2 INTERPRETATION (test NEGATIVE code = 10405) SOURCE (test code = 03108) NOT SPECIFIED SARS-CoV-2 (COVID-19) by RT-PCR (HIGH RISK)2019-09-18 00:00:00 Test Item Value Reference Range Interpretation Comments SARS-CoV-2 INTERPRETATION (test NEGATIVE code = 99309) SOURCE (test code = 52982) NOT SPECIFIED [id number] 00:00:00 Test Item Value Reference Range Interpretation Comments TSH, THIRD GENERATION (test code 2.490 UIU/ML = 2821) [id number] 00:00:00 Test Item Value Reference Range Interpretation Comments TSH, THIRD GENERATION (test code 2.490 UIU/ML = 2821) HEMOGLOBIN [id number] 00:00:00 Test Item Value Reference Range Interpretation Comments HEMOGLOBIN A1c (test code = 92820) 6.4 % HEMOGLOBIN [id number] 00:00:00 Test Item Value Reference Range Interpretation Comments HEMOGLOBIN A1c (test code = 61965) 6.4 % COMPREHENSIVE METABOLIC [id number] 00:00:00 Test Item Value Reference Range Interpretation Comments GLUCOSE (test code = 2217) 206 MG/DL BUN (test code = 2208) 23 MG/DL CREATININE (test code = 2214) 0.67 MG/DL eGFR AMER. (test code 112 ML/MIN/1.73 = 18731) eGFR NON- AMER. (test 97 ML/MIN/1.73 code = 07122) CALC BUN/CREAT (test code = 34 RATIO [...] ALT (test code = 2219) 25 U/L [id number] 00:00:00 Test Item Value Reference Range Interpretation Comments TSH, THIRD GENERATION (test code 2.490 UIU/ML = 2821) [id number] 00:00:00 Test Item Value Reference Range Interpretation Comments TSH, THIRD GENERATION (test code 2.490 UIU/ML = 2821) [id number] 00:00:00 Test Item Value Reference Range Interpretation Comments TSH, THIRD GENERATION (test code 2.490 UIU/ML = 2821) HEMOGLOBIN [id number] 00:00:00 Test Item Value Reference Range Interpretation Comments HEMOGLOBIN A1c (test code = 84337) 6.4 % HEMOGLOBIN [id number] 00:00:00 Test Item Value Reference Range Interpretation Comments HEMOGLOBIN A1c (test code = 46439) 6.4 % HEMOGLOBIN [id number] 00:00:00 Test Item Value Reference Range Interpretation Comments HEMOGLOBIN A1c (test code = 74903) 6.4 % COMPREHENSIVE METABOLIC [id number] 00:00:00 Test Item Value Reference Range Interpretation Comments GLUCOSE (test code = 2217) 206 MG/DL BUN (test code = 2208) 23 MG/DL CREATININE (test code = 2214) 0.67 MG/DL eGFR AMER. (test code 112 ML/MIN/1.73 = 33932) eGFR NON- AMER. (test 97 ML/MIN/1.73 code = 56752) CALC BUN/CREAT (test code = 34 RATIO [...] code = 2219) 25 U/L COMPREHENSIVE METABOLIC [id number] 00:00:00 Test Item Value Reference Range Interpretation Comments GLUCOSE (test code = 2217) 206 MG/DL BUN (test code = 2208) 23 MG/DL CREATININE (test code = 2214) 0.67 MG/DL eGFR AMER. (test code 112 ML/MIN/1.73 = 13252) eGFR NON- AMER. (test 97 ML/MIN/1.73 code = 06631) CALC BUN/CREAT (test code = 34 RATIO [...] CALC GLOBULIN (test code = 2.2 G/DL 224) CALC A/G RATIO (test code = 2.1 RATIO 2233) BILIRUBIN, TOTAL (test code = <0.2 MG/DL 2206) ALKALINE PHOSPHATASE (test 105 U/L code = 2204) AST (test code = 2218) 17 U/L ALT (test code = 2219) 25 U/L VAGINAL PATHOGENS DNA [id number] 00:00:00 Test Item Value Reference Range Interpretation Comments MARK SPECIES (test code = ) NEGATIVE G. VAGINALIS (test code = 01389) NEGATIVE T. VAGINALIS (test code = 83138) NEGATIVE VAGINAL PATHOGENS DNA [id number] 00:00:00 Test Item Value Reference Range Interpretation Comments MARK SPECIES (test code = 32263) NEGATIVE G. VAGINALIS (test code = 27242) NEGATIVE T. VAGINALIS (test code = 99125) NEGATIVE VAGINAL PATHOGENS DNA [id number] 00:00:00 Test Item Value Reference Range Interpretation Comments MARK SPECIES (test code = 73083) NEGATIVE G. VAGINALIS (test code = 69847) NEGATIVE T. VAGINALIS (test code = 08370) NEGATIVE HEMOGLOBIN A1c [ADDED]2018-12-01 00:00:00 Test Item Value Reference Range Interpretation Comments HEMOGLOBIN A1c (test code = 16498) 6.7 % HEMOGLOBIN A1c [ADDED]2018-12-01 00:00:00 Test Item Value Reference Range Interpretation Comments HEMOGLOBIN A1c (test code = 24770) 6.7 % COMPREHENSIVE METABOLIC PANEL [ADDED]2018-12-01 00:00:00 Test Item Value Reference Range Interpretation Comments GLUCOSE (test code = 2217) 136 MG/DL BUN (test code = 2208) 15 MG/DL CREATININE (test code = 2214) 0.64 MG/DL eGFR AMER. (test code 115 ML/MIN/1.73 = 33393) eGFR NON- AMER. (test 99 ML/MIN/1.73 code = 59532) CALC BUN/CREAT (test code = 23 RATIO [...] Interpretation Comments HEMOGLOBIN A1c (test code = 74143) 6.7 % HEMOGLOBIN A1c [ADDED]2018-12-01 00:00:00 Test Item Value Reference Range Interpretation Comments HEMOGLOBIN A1c (test code = 04018) 6.7 % HEMOGLOBIN A1c [ADDED]2018-12-01 00:00:00 Test Item Value Reference Range Interpretation Comments HEMOGLOBIN A1c (test code = 69769) 6.7 % COMPREHENSIVE METABOLIC PANEL [ADDED]2018-12-01 00:00:00 Test Item Value Reference Range Interpretation Comments GLUCOSE (test code = 2217) 136 MG/DL BUN (test code = 2208) 15 MG/DL CREATININE (test code = 2214) 0.64 MG/DL eGFR AMER. (test code 115 ML/MIN/1.73 = 82917) eGFR NON- AMER. (test 99 ML/MIN/1.73 code = 98522) CALC BUN/CREAT (test code = 23 RATIO [...] eGFR AMER. (test code 115 ML/MIN/1.73 = 23902) eGFR NON- AMER. (test 99 ML/MIN/1.73 code = 43649) CALC BUN/CREAT (test code = 23 RATIO [...] code 1.280 UIU/ML = 2821) CBC W/AUTO [id number] 00:00:00 Test Item Value Reference Range Interpretation [...] code = 1015) 346 K/UL CBC W/AUTO [id number] 00:00:00 Test Item Value Reference Range Interpretation [...] (test code = 1015) 346 K/UL HEMOGLOBIN [id number] 00:00:00 Test Item Value Reference Range Interpretation Comments HEMOGLOBIN A1c (test code = 57395) 5.9 % HEMOGLOBIN [id number] 00:00:00 Test Item Value Reference Range Interpretation Comments HEMOGLOBIN A1c (test code = 58454) 5.9 % LIPID [id number] 00:00:00 Test Item Value Reference Range Interpretation Comments CHOLESTEROL (test code = 2210) 318 MG/DL TRIGLYCERIDES (test code = 2232) 263 MG/DL HDL CHOLESTEROL (test code = 2220) 51 MG/DL CALC LDL CHOL (test code = 2237) 214 MG/DL RISK RATIO LDL/HDL (test code = 4.20 RATIO 2238) COMPREHENSIVE METABOLIC [id number] 00:00:00 Test Item Value Reference Range Interpretation Comments GLUCOSE (test code = 2217) 113 MG/DL BUN (test code = 2208) 18 MG/DL CREATININE (test code = 2214) 0.70 MG/DL eGFR AMER. (test code 111 ML/MIN/1.73 = 55788) eGFR NON- AMER. (test 96 ML/MIN/1.73 code = 03984) CALC BUN/CREAT (test code = 26 RATIO [...] ALT (test code = 2219) 31 U/L [id number] 00:00:00 Test Item Value Reference Range Interpretation Comments TSH, THIRD GENERATION (test code 2.520 UIU/ML = 2821) [id number] 00:00:00 Test Item Value Reference Range Interpretation Comments TSH, THIRD GENERATION (test code 2.520 UIU/ML = 2821) CBC W/AUTO [id number] 00:00:00 Test Item Value Reference Range Interpretation [...] code = 1015) 346 K/UL CBC W/AUTO [id number] 00:00:00 Test Item Value Reference Range Interpretation [...] code = 1015) 346 K/UL CBC W/AUTO [id number] 00:00:00 Test Item Value Reference Range Interpretation [...] (test code = 1015) 346 K/UL HEMOGLOBIN [id number] 00:00:00 Test Item Value Reference Range Interpretation Comments HEMOGLOBIN A1c (test code = 45501) 5.9 % HEMOGLOBIN [id number] 00:00:00 Test Item Value Reference Range Interpretation Comments HEMOGLOBIN A1c (test code = 39662) 5.9 % HEMOGLOBIN [id number] 00:00:00 Test Item Value Reference Range Interpretation Comments HEMOGLOBIN A1c (test code = 94455) 5.9 % LIPID [id number] 00:00:00 Test Item Value Reference Range Interpretation Comments CHOLESTEROL (test code = 2210) 318 MG/DL TRIGLYCERIDES (test code = 2232) 263 MG/DL HDL CHOLESTEROL (test code = 2220) 51 MG/DL CALC LDL CHOL (test code = 2237) 214 MG/DL RISK RATIO LDL/HDL (test code = 4.20 RATIO 2238) LIPID [id number] 00:00:00 Test Item Value Reference Range Interpretation Comments CHOLESTEROL (test code = 2210) 318 MG/DL TRIGLYCERIDES (test code = 2232) 263 MG/DL HDL CHOLESTEROL (test code = 2220) 51 MG/DL CALC LDL CHOL (test code = 2237) 214 MG/DL RISK RATIO LDL/HDL (test code = 4.20 RATIO 2238) COMPREHENSIVE METABOLIC [id number] 00:00:00 Test Item Value Reference Range Interpretation Comments GLUCOSE (test code = 2217) 113 MG/DL BUN (test code = 2208) 18 MG/DL CREATININE (test code = 2214) 0.70 MG/DL eGFR AMER. (test code 111 ML/MIN/1.73 = 25071) eGFR NON- AMER. (test 96 ML/MIN/1.73 code = 34100) CALC BUN/CREAT (test code = 26 RATIO [...] code = 2219) 31 U/L COMPREHENSIVE METABOLIC [id number] 00:00:00 Test Item Value Reference Range Interpretation Comments GLUCOSE (test code = 2217) 113 MG/DL BUN (test code = 2208) 18 MG/DL CREATININE (test code = 2214) 0.70 MG/DL eGFR AMER. (test code 111 ML/MIN/1.73 = 89836) eGFR NON- AMER. (test 96 ML/MIN/1.73 code = 74940) CALC BUN/CREAT (test code = 26 RATIO [...] ALT (test code = 2219) 31 U/L [id number] 00:00:00 Test Item Value Reference Range Interpretation Comments TSH, THIRD GENERATION (test code 2.520 UIU/ML = 2821) [id number] 00:00:00 Test Item Value Reference Range Interpretation Comments TSH, THIRD GENERATION (test code 2.520 UIU/ML = 2821) [id number] 00:00:00 Test Item Value Reference Range Interpretation Comments TSH, THIRD GENERATION (test code 2.520 UIU/ML = 2821) CULTURE, [id number] 00:00:00 Test Item Value Reference Range Interpretation Comments CULTURE, URINE (test SPECIMEN NUMBER: code = 48423) [id number] CULTURE, [id number] 00:00:00 Test Item Value Reference Range Interpretation Comments CULTURE, URINE (test SPECIMEN NUMBER: code = 19900) [id number] CULTURE, [id number] 00:00:00 Test Item Value Reference Range Interpretation Comments CULTURE, URINE (test SPECIMEN NUMBER: code = 93924) [id number] CULTURE, [id number] 00:00:00 Test Item Value Reference Range Interpretation Comments CULTURE, URINE (test SPECIMEN NUMBER: code = 95860) [id number] CULTURE, [id number] 00:00:00 Test Item Value Reference Range Interpretation Comments CULTURE, URINE (test SPECIMEN NUMBER: code = 78144) [id number] CULTURE, [id number] 00:00:00 Test Item Value Reference Range Interpretation Comments CULTURE, URINE (test SPECIMEN NUMBER: code = 04004) [id number] BASIC METABOLIC [id number] 00:00:00 Test Item Value Reference Range Interpretation Comments GLUCOSE (test code = 2217) 135 MG/DL BUN (test code = 2208) 25 MG/DL CREATININE (test code = 2214) 0.76 MG/DL eGFR AMER. (test code 101 ML/MIN/1.73 = 13498) eGFR NON- AMER. (test 87 ML/MIN/1.73 code = 26788) SODIUM (test code = 2231) 139 MEQ/L POTASSIUM (test code = 2228) 4.7 MEQ/L CHLORIDE (test code = 2215) 99 MEQ/L CARBON DIOXIDE (test code = 26 MEQ/L 220) CALCIUM (test code = 2209) 9.4 MG/DL LIPID [id number] 00:00:00 Test Item Value Reference Range Interpretation Comments CHOLESTEROL (test code = 2210) 262 MG/DL TRIGLYCERIDES (test code = 2232) 300 MG/DL HDL CHOLESTEROL (test code = 2220) 36 MG/DL CALC LDL CHOL (test code = 2237) 166 MG/DL RISK RATIO LDL/HDL (test code = 4.61 RATIO 2238) HEMOGLOBIN [id number] 00:00:00 Test Item Value Reference Range Interpretation Comments HEMOGLOBIN A1c (test code = 70956) 6.2 % HEMOGLOBIN [id number] 00:00:00 Test Item Value Reference Range Interpretation Comments HEMOGLOBIN A1c (test code = 36223) 6.2 % [id number] 00:00:00 Test Item Value Reference Range Interpretation Comments TSH, THIRD GENERATION (test code 0.988 UIU/ML = 2821) [id number] 00:00:00 Test Item Value Reference Range Interpretation Comments TSH, THIRD GENERATION (test code 0.988 UIU/ML = 2821) BASIC METABOLIC [id number] 00:00:00 Test Item Value Reference Range Interpretation Comments GLUCOSE (test code = 2217) 135 MG/DL BUN (test code = 2208) 25 MG/DL CREATININE (test code = 2214) 0.76 MG/DL eGFR AMER. (test code 101 ML/MIN/1.73 = 76385) eGFR NON- AMER. (test 87 ML/MIN/1.73 code = 80276) SODIUM (test code = 2231) 139 MEQ/L POTASSIUM (test code = 2228) 4.7 MEQ/L CHLORIDE (test code = 2215) 99 MEQ/L CARBON DIOXIDE (test code = 26 MEQ/L 2205) CALCIUM (test code = 2209) 9.4 MG/DL BASIC METABOLIC [id number] 00:00:00 Test Item Value Reference Range Interpretation Comments GLUCOSE (test code = 2217) 135 MG/DL BUN (test code = 2208) 25 MG/DL CREATININE (test code = 2214) 0.76 MG/DL eGFR AMER. (test code 101 ML/MIN/1.73 = 97236) eGFR NON- AMER. (test 87 ML/MIN/1.73 code = 02115) SODIUM (test code = 2231) 139 MEQ/L POTASSIUM (test code = 2228) 4.7 MEQ/L CHLORIDE (test code = 2215) 99 MEQ/L CARBON DIOXIDE (test code = 26 MEQ/L 2206) CALCIUM (test code = 2209) 9.4 MG/DL LIPID [id number] 00:00:00 Test Item Value Reference Range Interpretation Comments CHOLESTEROL (test code = 2210) 262 MG/DL TRIGLYCERIDES (test code = 2232) 300 MG/DL HDL CHOLESTEROL (test code = 2220) 36 MG/DL CALC LDL CHOL (test code = 2237) 166 MG/DL RISK RATIO LDL/HDL (test code = 4.61 RATIO 2238) LIPID [id number] 00:00:00 Test Item Value Reference Range Interpretation Comments CHOLESTEROL (test code = 2210) 262 MG/DL TRIGLYCERIDES (test code = 2232) 300 MG/DL HDL CHOLESTEROL (test code = 2220) 36 MG/DL CALC LDL CHOL (test code = 2237) 166 MG/DL RISK RATIO LDL/HDL (test code = 4.61 RATIO 2238) HEMOGLOBIN [id number] 00:00:00 Test Item Value Reference Range Interpretation Comments HEMOGLOBIN A1c (test code = 63122) 6.2 % HEMOGLOBIN [id number] 00:00:00 Test Item Value Reference Range Interpretation Comments HEMOGLOBIN A1c (test code = 58530) 6.2 % HEMOGLOBIN [id number] 00:00:00 Test Item Value Reference Range Interpretation Comments HEMOGLOBIN A1c (test code = 85951) 6.2 % [id number] 00:00:00 Test Item Value Reference Range Interpretation Comments TSH, THIRD GENERATION (test code 0.988 UIU/ML = 2821) [id number] 00:00:00 Test Item Value Reference Range Interpretation Comments TSH, THIRD GENERATION (test code 0.988 UIU/ML = 2821) [id number] 00:00:00 Test Item Value Reference Range Interpretation Comments TSH, THIRD GENERATION (test code 0.988 UIU/ML = 2821) COMPREHENSIVE METABOLIC [id number] 00:00:00 Test Item Value Reference Range Interpretation Comments GLUCOSE (test code = 2217) 109 MG/DL BUN (test code = 2208) 25 MG/DL CREATININE (test code = 2214) 0.78 MG/DL eGFR AMER. (test code 98 ML/MIN/1.73 = 26889) eGFR NON- AMER. (test 84 ML/MIN/1.73 code = 75779) CALC BUN/CREAT (test code = 32 RATIO [...] (test code = 2219) 25 U/L LIPID [id number] 00:00:00 Test Item Value Reference Range Interpretation Comments CHOLESTEROL (test code = 2210) 295 MG/DL TRIGLYCERIDES (test code = 2232) 218 MG/DL HDL CHOLESTEROL (test code = 2220) 46 MG/DL CALC LDL CHOL (test code = 2237) 205 MG/DL RISK RATIO LDL/HDL (test code = 4.47 RATIO 2238) HEMOGLOBIN [id number] 00:00:00 Test Item Value Reference Range Interpretation Comments HEMOGLOBIN A1c (test code = 80010) 7.0 % HEMOGLOBIN [id number] 00:00:00 Test Item Value Reference Range Interpretation Comments HEMOGLOBIN A1c (test code = 66964) 7.0 % [id number] 00:00:00 Test Item Value Reference Range Interpretation Comments TSH, THIRD GENERATION (test code 0.565 UIU/ML = 2821) [id number] 00:00:00 Test Item Value Reference Range Interpretation Comments TSH, THIRD GENERATION (test code 0.565 UIU/ML = 2821) COMPREHENSIVE METABOLIC [id number] 00:00:00 Test Item Value Reference Range Interpretation Comments GLUCOSE (test code = 2217) 109 MG/DL BUN (test code = 2208) 25 MG/DL CREATININE (test code = 2214) 0.78 MG/DL eGFR AMER. (test code 98 ML/MIN/1.73 = 15588) eGFR NON- AMER. (test 84 ML/MIN/1.73 code = 04265) CALC BUN/CREAT (test code = 32 RATIO 2235) SODIUM (test code = 2231) 139 MEQ/L POTASSIUM (test code = 2228) 4.5 MEQ/L CHLORIDE (test code = 2215) 96 MEQ/L CARBON DIOXIDE (test code = 27 MEQ/L 220) CALCIUM (test code = 2209) 10.0 MG/DL [...] code = 2219) 25 U/L COMPREHENSIVE METABOLIC [id number] 00:00:00 Test Item Value Reference Range Interpretation Comments GLUCOSE (test code = 2217) 109 MG/DL BUN (test code = 2208) 25 MG/DL CREATININE (test code = 2214) 0.78 MG/DL eGFR AMER. (test code 98 ML/MIN/1.73 = 96010) eGFR NON- AMER. (test 84 ML/MIN/1.73 code = 19630) CALC BUN/CREAT (test code = 32 RATIO 2235) SODIUM (test code = 2231) 139 MEQ/L POTASSIUM (test code = 2228) 4.5 MEQ/L CHLORIDE (test code = 2215) 96 MEQ/L CARBON DIOXIDE (test code = 27 MEQ/L 220) CALCIUM (test code = 2209) 10.0 MG/DL [...] (test code = 2219) 25 U/L LIPID [id number] 00:00:00 Test Item Value Reference Range Interpretation Comments CHOLESTEROL (test code = 2210) 295 MG/DL TRIGLYCERIDES (test code = 2232) 218 MG/DL HDL CHOLESTEROL (test code = 2220) 46 MG/DL CALC LDL CHOL (test code = 2237) 205 MG/DL RISK RATIO LDL/HDL (test code = 4.47 RATIO 2238) LIPID [id number] 00:00:00 Test Item Value Reference Range Interpretation Comments CHOLESTEROL (test code = 2210) 295 MG/DL TRIGLYCERIDES (test code = 2232) 218 MG/DL HDL CHOLESTEROL (test code = 2220) 46 MG/DL CALC LDL CHOL (test code = 2237) 205 MG/DL RISK RATIO LDL/HDL (test code = 4.47 RATIO 2238) HEMOGLOBIN [id number] 00:00:00 Test Item Value Reference Range Interpretation Comments HEMOGLOBIN A1c (test code = 85237) 7.0 % HEMOGLOBIN [id number] 00:00:00 Test Item Value Reference Range Interpretation Comments HEMOGLOBIN A1c (test code = 82749) 7.0 % HEMOGLOBIN [id number] 00:00:00 Test Item Value Reference Range Interpretation Comments HEMOGLOBIN A1c (test code = 96739) 7.0 % [id number] 00:00:00 Test Item Value Reference Range Interpretation Comments TSH, THIRD GENERATION (test code 0.565 UIU/ML = 2821) [id number] 00:00:00 Test Item Value Reference Range Interpretation Comments TSH, THIRD GENERATION (test code 0.565 UIU/ML = 2821) [id number] 00:00:00 Test Item Value Reference Range Interpretation Comments TSH, THIRD GENERATION (test code 0.565 UIU/ML = 2821) [id number] 00:00:00 Test Item Value Reference Range Interpretation Comments TSH, THIRD GENERATION (test code 0.379 UIU/ML = 2821) [id number] 00:00:00 Test Item Value Reference Range Interpretation Comments TSH, THIRD GENERATION (test code 0.379 UIU/ML = 2821) [id number] 00:00:00 Test Item Value Reference Range Interpretation Comments TSH, THIRD GENERATION (test code 0.379 UIU/ML = 2821) [id number] 00:00:00 Test Item Value Reference Range Interpretation Comments TSH, THIRD GENERATION (test code 0.379 UIU/ML = 2821) [id number] 00:00:00 Test Item Value Reference Range Interpretation Comments TSH, THIRD GENERATION (test code 0.379 UIU/ML = 2821) CULTURE, [id number] 00:00:00 Test Item Value Reference Range Interpretation Comments CULTURE, URINE (test SPECIMEN NUMBER: code = 09089) [id number] CULTURE, [id number] 00:00:00 Test Item Value Reference Range Interpretation Comments CULTURE, URINE (test SPECIMEN NUMBER: code = 18081) [id number] CULTURE, [id number] 00:00:00 Test Item Value Reference Range Interpretation Comments CULTURE, URINE (test SPECIMEN NUMBER: code = 00912) [id number] COMPREHENSIVE METABOLIC [id number] 00:00:00 Test Item Value Reference Range Interpretation Comments GLUCOSE (test code = 2217) 128 MG/DL BUN (test code = 2208) 26 MG/DL CREATININE (test code = 2214) 0.92 MG/DL eGFR AMER. (test code 81 ML/MIN/1.73 = 29184) eGFR NON- AMER. (test 70 ML/MIN/1.73 code = 81964) CALC BUN/CREAT (test code = 28 RATIO [...] code = 2219) 29 U/L ACUTE HEPATITIS [id number] 00:00:00 Test Item Value Reference Range Interpretation Comments HEPATITIS A IgM (test code = NON-REACTIVE 22207) HEPATITIS B CORE IgM (test code NON-REACTIVE = 0044) HEPATITIS B SURF AG (test code = NON-REACTIVE 4408) HEPATITIS C ANTIBODY (test code NON-REACTIVE = 4311) INTERPRETATION HEPATITIS A: (NOTE) (test code = 2552) INTERPRETATION HEPATITIS B: (NOTE) (test code = 80037) INTERPRETATION HEPATITIS C: (NOTE) (test code = 10888) [id number] 00:00:00 Test Item Value Reference Range Interpretation Comments AMYLASE (test code = 2205) 32 U/L [id number] 00:00:00 Test Item Value Reference Range Interpretation Comments LIPASE (test code = 2058) 22 U/L [id number] 00:00:00 Test Item Value Reference Range Interpretation Comments LIPASE (test code = 2058) 22 U/L COMPREHENSIVE METABOLIC [id number] 00:00:00 Test Item Value Reference Range Interpretation Comments GLUCOSE (test code = 2217) 128 MG/DL BUN (test code = 2208) 26 MG/DL CREATININE (test code = 2214) 0.92 MG/DL eGFR AMER. (test code 81 ML/MIN/1.73 = 71017) eGFR NON- AMER. (test 70 ML/MIN/1.73 code = 28610) CALC BUN/CREAT (test code = 28 RATIO [...] code = 2219) 29 U/L COMPREHENSIVE METABOLIC [id number] 00:00:00 Test Item Value Reference Range Interpretation Comments GLUCOSE (test code = 2217) 128 MG/DL BUN (test code = 2208) 26 MG/DL CREATININE (test code = 2214) 0.92 MG/DL eGFR AMER. (test code 81 ML/MIN/1.73 = 26438) eGFR NON- AMER. (test 70 ML/MIN/1.73 code = 91581) CALC BUN/CREAT (test code = 28 RATIO [...] code = 2219) 29 U/L ACUTE HEPATITIS [id number] 00:00:00 Test Item Value Reference Range Interpretation Comments HEPATITIS A IgM (test code = NON-REACTIVE 64440) HEPATITIS B CORE IgM (test code NON-REACTIVE = 8244) HEPATITIS B SURF AG (test code = NON-REACTIVE 4614) HEPATITIS C ANTIBODY (test code NON-REACTIVE = 2888) INTERPRETATION HEPATITIS A: (NOTE) (test code = 2552) INTERPRETATION HEPATITIS B: (NOTE) (test code = 54891) INTERPRETATION HEPATITIS C: (NOTE) (test code = 36563) ACUTE HEPATITIS [id number] 00:00:00 Test Item Value Reference Range Interpretation Comments HEPATITIS A IgM (test code = NON-REACTIVE 62278) HEPATITIS B CORE IgM (test code NON-REACTIVE = 4644) HEPATITIS B SURF AG (test code = NON-REACTIVE 4569) HEPATITIS C ANTIBODY (test code NON-REACTIVE = 4675) INTERPRETATION HEPATITIS A: (NOTE) (test code = 2552) INTERPRETATION HEPATITIS B: (NOTE) (test code = 58587) INTERPRETATION HEPATITIS C: (NOTE) (test code = 14993) [id number] 00:00:00 Test Item Value Reference Range Interpretation Comments AMYLASE (test code = 2205) 32 U/L [id number] 00:00:00 Test Item Value Reference Range Interpretation Comments AMYLASE (test code = 2205) 32 U/L [id number] 00:00:00 Test Item Value Reference Range Interpretation Comments LIPASE (test code = 2058) 22 U/L [id number] 00:00:00 Test Item Value Reference Range Interpretation Comments LIPASE (test code = 2058) 22 U/L [id number] 00:00:00 Test Item Value Reference Range Interpretation Comments LIPASE (test code = 2058) 22 U/L [id number] 00:00:00 Test Item Value Reference Range Interpretation Comments TSH, THIRD GENERATION (test code 4.890 UIU/ML = 2821) [id number] 00:00:00 Test Item Value Reference Range Interpretation Comments TSH, THIRD GENERATION (test code 4.890 UIU/ML = 2821) COMPREHENSIVE METABOLIC [id number] 00:00:00 Test Item Value Reference Range Interpretation Comments GLUCOSE (test code = 2217) 121 MG/DL BUN (test code = 2208) 40 MG/DL CREATININE (test code = 2214) 1.48 MG/DL eGFR AMER. (test code 45 ML/MIN/1.73 = 78795) eGFR NON- AMER. (test 39 ML/MIN/1.73 code = 53943) CALC BUN/CREAT (test code = 27 RATIO [...] ALT (test code = 2219) 20 U/L [id number] 00:00:00 Test Item Value Reference Range Interpretation Comments TSH, THIRD GENERATION (test code 4.890 UIU/ML = 2821) [id number] 00:00:00 Test Item Value Reference Range Interpretation Comments TSH, THIRD GENERATION (test code 4.890 UIU/ML = 2821) [id number] 00:00:00 Test Item Value Reference Range Interpretation Comments TSH, THIRD GENERATION (test code 4.890 UIU/ML = 2821) COMPREHENSIVE METABOLIC [id number] 00:00:00 Test Item Value Reference Range Interpretation Comments GLUCOSE (test code = 2217) 121 MG/DL BUN (test code = 2208) 40 MG/DL CREATININE (test code = 2214) 1.48 MG/DL eGFR AMER. (test code 45 ML/MIN/1.73 = 69743) eGFR NON- AMER. (test 39 ML/MIN/1.73 code = 84764) CALC BUN/CREAT (test code = 27 RATIO [...] code = 2219) 20 U/L COMPREHENSIVE METABOLIC [id number] 00:00:00 Test Item Value Reference Range Interpretation Comments GLUCOSE (test code = 2217) 121 MG/DL BUN (test code = 2208) 40 MG/DL CREATININE (test code = 2214) 1.48 MG/DL eGFR AMER. (test code 45 ML/MIN/1.73 = 37710) eGFR NON- AMER. (test 39 ML/MIN/1.73 code = 04047) CALC BUN/CREAT (test code = 27 RATIO [...] (test code = 2219) 20 U/L LIPID [id number] 00:00:00 Test Item Value Reference Range Interpretation Comments CHOLESTEROL (test code = 2210) 261 MG/DL TRIGLYCERIDES (test code = 2232) 165 MG/DL HDL CHOLESTEROL (test code = 2220) 58 MG/DL CALC LDL CHOL (test code = 2237) 170 MG/DL RISK RATIO LDL/HDL (test code = 2.93 RATIO 2238) CBC W/AUTO [id number] 00:00:00 Test Item Value Reference Range Interpretation [...] code = 1015) 378 K/UL CBC W/AUTO [id number] 00:00:00 Test Item Value Reference Range Interpretation [...] (test code = 1015) 378 K/UL HEMOGLOBIN [id number] 00:00:00 Test Item Value Reference Range Interpretation Comments HEMOGLOBIN A1c (test code = 00464) 6.4 % HEMOGLOBIN [id number] 00:00:00 Test Item Value Reference Range Interpretation Comments HEMOGLOBIN A1c (test code = 76371) 6.4 % [id number] 00:00:00 Test Item Value Reference Range Interpretation Comments TSH (test code = 2821) 5.290 UIU/ML [id number] 00:00:00 Test Item Value Reference Range Interpretation Comments TSH (test code = 2821) 5.290 UIU/ML LIPID [id number] 00:00:00 Test Item Value Reference Range Interpretation Comments CHOLESTEROL (test code = 2210) 261 MG/DL TRIGLYCERIDES (test code = 2232) 165 MG/DL HDL CHOLESTEROL (test code = 2220) 58 MG/DL CALC LDL CHOL (test code = 2237) 170 MG/DL RISK RATIO LDL/HDL (test code = 2.93 RATIO 2238) LIPID [id number] 00:00:00 Test Item Value Reference Range Interpretation Comments CHOLESTEROL (test code = 2210) 261 MG/DL TRIGLYCERIDES (test code = 2232) 165 MG/DL HDL CHOLESTEROL (test code = 2220) 58 MG/DL CALC LDL CHOL (test code = 2237) 170 MG/DL RISK RATIO LDL/HDL (test code = 2.93 RATIO 2238) CBC W/AUTO [id number] 00:00:00 Test Item Value Reference Range Interpretation [...] code = 1015) 378 K/UL CBC W/AUTO [id number] 00:00:00 Test Item Value Reference Range Interpretation [...] code = 1015) 378 K/UL CBC W/AUTO [id number] 00:00:00 Test Item Value Reference Range Interpretation [...] (test code = 1015) 378 K/UL HEMOGLOBIN [id number] 00:00:00 Test Item Value Reference Range Interpretation Comments HEMOGLOBIN A1c (test code = 25461) 6.4 % HEMOGLOBIN [id number] 00:00:00 Test Item Value Reference Range Interpretation Comments HEMOGLOBIN A1c (test code = 43790) 6.4 % HEMOGLOBIN [id number] 00:00:00 Test Item Value Reference Range Interpretation Comments HEMOGLOBIN A1c (test code = 12846) 6.4 % [id number] 00:00:00 Test Item Value Reference Range Interpretation Comments TSH (test code = 2821) 5.290 UIU/ML [id number] 00:00:00 Test Item Value Reference Range Interpretation Comments TSH (test code = 2821) 5.290 UIU/ML [id number] 00:00:00 Test Item Value Reference Range Interpretation [...] code = 2821) 1.030 UIU/ML COMPREHENSIVE METABOLIC [id number] 00:00:00 Test Item Value Reference Range Interpretation Comments GLUCOSE (test code = 2217) 106 MG/DL BUN (test code = 2208) 23 MG/DL CREATININE (test code = 2214) 0.66 MG/DL eGFR AMER. (test code 114 ML/MIN/1.73 = 80424) eGFR NON- AMER. (test 99 ML/MIN/1.73 code = 44021) CALC BUN/CREAT (test code = 35 RATIO [...] code = 2821) 0.335 UIU/ML COMPREHENSIVE METABOLIC [id number] 00:00:00 Test Item Value Reference Range Interpretation Comments GLUCOSE (test code = 2217) 106 MG/DL BUN (test code = 2208) 23 MG/DL CREATININE (test code = 2214) 0.66 MG/DL eGFR AMER. (test code 114 ML/MIN/1.73 = 88238) eGFR NON- AMER. (test 99 ML/MIN/1.73 code = 09694) CALC BUN/CREAT (test code = 35 RATIO [...] code = 2219) 31 U/L COMPREHENSIVE METABOLIC [id number] 00:00:00 Test Item Value Reference Range Interpretation Comments GLUCOSE (test code = 2217) 106 MG/DL BUN (test code = 2208) 23 MG/DL CREATININE (test code = 2214) 0.66 MG/DL eGFR AMER. (test code 114 ML/MIN/1.73 = 39032) eGFR NON- AMER. (test 99 ML/MIN/1.73 code = 62256) CALC BUN/CREAT (test code = 35 RATIO 2235) SODIUM (test code = 2231) 138 MEQ/L POTASSIUM (test code = 2228) 5.1 MEQ/L CHLORIDE (test code = 2215) 96 MEQ/L CARBON DIOXIDE (test code = 27 MEQ/L 2205) CALCIUM (test code = 220) 9.6 MG/DL PROTEIN, TOTAL (test code = 7.1 G/DL 2228) ALBUMIN (test code = 2201) 4.7 G/DL CALC GLOBULIN (test code = 2.4 G/DL 2239) CALC A/G RATIO (test code = 2.0 RATIO 2233) BILIRUBIN, TOTAL (test code = 0.2 MG/DL 2206) ALKALINE PHOSPHATASE (test 101 U/L code = 2203) AST (test code = 2218) 21 U/L [...] code = 2821) 0.335 UIU/ML COMPREHENSIVE METABOLIC [id number] 00:00:00 Test Item Value Reference Range Interpretation Comments GLUCOSE (test code = 2217) 103 MG/DL BUN (test code = 2208) 15 MG/DL CREATININE (test code = 2214) 0.77 MG/DL eGFR AMER. (test code 101 ML/MIN/1.73 = 63289) eGFR NON- AMER. (test 87 ML/MIN/1.73 code = 72439) CALC BUN/CREAT (test code = 19 RATIO [...] code = 2821) 0.424 UIU/ML COMPREHENSIVE METABOLIC [id number] 00:00:00 Test Item Value Reference Range Interpretation Comments GLUCOSE (test code = 2217) 103 MG/DL BUN (test code = 2208) 15 MG/DL CREATININE (test code = 2214) 0.77 MG/DL eGFR AMER. (test code 101 ML/MIN/1.73 = 26348) eGFR NON- AMER. (test 87 ML/MIN/1.73 code = 60224) CALC BUN/CREAT (test code = 19 RATIO [...] code = 2219) 24 U/L COMPREHENSIVE METABOLIC [id number] 00:00:00 Test Item Value Reference Range Interpretation Comments GLUCOSE (test code = 2217) 103 MG/DL BUN (test code = 2208) 15 MG/DL CREATININE (test code = 2214) 0.77 MG/DL eGFR AMER. (test code 101 ML/MIN/1.73 = 73521) eGFR NON- AMER. (test 87 ML/MIN/1.73 code = 39700) CALC BUN/CREAT (test code = 19 RATIO [...] RATIO 4) BILIRUBIN, TOTAL (test code = 0.1 MG/DL [...] (test code = 2821) 0.424 UIU/ML CULTURE, [id number] 00:00:00 Test Item Value Reference Range Interpretation Comments CULTURE, URINE (test SPECIMEN NUMBER: code = 08506) [id number] CULTURE, [id number] 00:00:00 Test Item Value Reference Range Interpretation Comments CULTURE, URINE (test SPECIMEN NUMBER: code = 35299) [id number] CULTURE, [id number] 00:00:00 Test Item Value Reference Range Interpretation Comments CULTURE, URINE (test SPECIMEN NUMBER: code = 48117) [id number] CULTURE, [id number] 00:00:00 Test Item Value Reference Range Interpretation Comments CULTURE, URINE (test SPECIMEN NUMBER: code = 25636) [id number] CULTURE, [id number] 00:00:00 Test Item Value Reference Range Interpretation Comments CULTURE, URINE (test SPECIMEN NUMBER: code = 66095) [id number] CULTURE, [id number] 00:00:00 Test Item Value Reference Range Interpretation Comments CULTURE, URINE (test SPECIMEN NUMBER: code = 74182) [id number]
[2021-12-27] MEDS ORDERED: NA CHLORIDE 0.9% 1,000 ML ONE (07:55)
[2021-12-27] MEDS ORDERED: ONDANSETRON 4 MG/2 ML VIAL ONE ×2 (07:55→10:49)
[2021-12-27 08:00] LABS: Absolute Lymphocytes (CBC) 1.8 K/uL (0.7-4.9); Hematocrit 40.7 % (36.0-45.0); Lymphocytes % 18.5 % (15.3-44.8); MCV 89.9 fL (80-100); MPV 6.6 fL (7.6-11.3); RBC Red Blood Cell Count 4.53 M/uL (3.86-4.86)
[2021-12-27 09:43] LABS: Albumin 3.6 g/dL (3.4-5.0); Bilirubin Total 0.4 mg/dL (0.2-1.0); Protein, Total 7.9 g/dL (6.4-8.2)
--- NOTE | 2021-12-27 10:06 | EDPHYS ---
Physician Documentation [facility] Name: Jaimie Amanda Age: 61 yrs Sex: Female : 1960 Arrival Date: 12/27/2021 Time: 07:18 Bed 7 Private MD: [facility]STA Physician Diego Ramirez HPI: 12/27 09:58 This 61 yrs old Female presents to ER via Ambulatory with complaints of hannah Abdominal Pain. 09:58 The patient presents with abdominal pain in the upper abdomen, in the lower abdomen, hannah abdominal distention in the upper abdomen, in the lower abdomen. Onset: The symptoms/episode began/occurred 3 day(s) ago. The patient presents to the emergency department with nausea, vomiting, that is intermittent. Onset: The symptoms/episode began/occurred 3 day(s) ago. Possible causes: unknown. The symptoms are aggravated by food , The symptoms are alleviated by nothing. Associated signs and symptoms: Pertinent positives: nausea, vomiting. Modifying factors: The symptoms are alleviated by nothing, the symptoms are aggravated by food, movement. Historical: - Allergies: 07:32 No Known Allergies; iw - PMHx: 07:32 Anxiety; Hypertensive disorder; Hypothyroidism; low NA; iw - PSHx: 07:32 Thyroidectomy; iw - Immunization history:: Adult Immunizations up to date. - Family history:: not pertinent. - Social history:: Smoking status: Patient reports the use of cigarette tobacco products, smokes one-half pack cigarettes per day. ROS: 09:58 Constitutional: Negative for fever, chills, and weight loss, Eyes: Negative for injury, hannah pain, redness, and discharge, ENT: Negative for injury, pain, and discharge, Neck: Negative for injury, pain, and swelling, Cardiovascular: Negative for chest pain, palpitations, and edema, Respiratory: Negative for shortness of breath, cough, wheezing, and pleuritic chest pain, Back: Negative for injury and pain, : Negative for injury, bleeding, discharge, and swelling, MS/Extremity: Negative for injury and deformity, Skin: Negative for injury, rash, and discoloration, Neuro: Negative for headache, weakness, numbness, tingling, and seizure, Psych: Negative for depression, anxiety, suicide ideation, homicidal ideation, and hallucinations, Allergy/Immunology: Negative for hives, rash, and allergies, Endocrine: Negative for neck swelling, polydipsia, polyuria, polyphagia, and marked weight changes, Hematologic/Lymphatic: Negative for swollen nodes, abnormal bleeding, and unusual bruising. 09:58 Abdomen/GI: Positive for abdominal pain, nausea and vomiting. Exam: 09:58 Constitutional: This is a well developed, well nourished patient who is awake, alert, hannah and in no acute distress. Head/Face: Normocephalic, atraumatic. Eyes: Pupils equal round and reactive to light, extra-ocular motions intact. Lids and lashes normal. Conjunctiva and sclera are non-icteric and not injected. Cornea within normal limits. Periorbital areas with no swelling, redness, or edema. ENT: Nares patent. No nasal discharge, no septal abnormalities noted. Tympanic membranes are normal and external auditory canals are clear. Oropharynx with no redness, swelling, or masses, exudates, or evidence of obstruction, uvula midline. Mucous membranes moist. Neck: Trachea midline, no thyromegaly or masses palpated, and no cervical lymphadenopathy. Supple, full range of motion without nuchal rigidity, or vertebral point tenderness. No Meningismus. Chest/axilla: Normal chest wall appearance and motion. Nontender with no deformity. No lesions are appreciated. Cardiovascular: Regular rate and rhythm with a normal S1 and S2. No gallops, murmurs, or rubs. Normal PMI, no JVD. No pulse deficits. Respiratory: Lungs have equal breath sounds bilaterally, clear to auscultation and percussion. No rales, rhonchi or wheezes noted. No increased work of breathing, no retractions or nasal flaring. Back: No spinal tenderness. No costovertebral tenderness. Full range of motion. Female : Normal external genitalia. Skin: Warm, dry with normal turgor. Normal color with no rashes, no lesions, and no evidence of cellulitis. MS/ Extremity: Pulses equal, no cyanosis. Neurovascular intact. Full, normal range of motion. Neuro: Awake and alert, GCS 15, oriented to person, place, time, and situation. Cranial nerves II-XII grossly intact. Motor strength 5/5 in all extremities. Sensory grossly intact. Cerebellar exam normal. Normal gait. Psych: Awake, alert, with orientation to person, place and time. Behavior, mood, and affect are within normal limits. 09:58 ECG was reviewed by the Attending Physician. 09:58 Abdomen/GI: Inspection: distension, that is mild, Bowel sounds: normal, Palpation: mild abdominal tenderness, in all quadrants, Liver: no appreciated palpable abnormalities, Hernia: not appreciated. Vital Signs: 07:31 BP 196 / 95; Pulse 79; Resp 16; Temp 97.5; Pulse Ox 98% on R/A; Weight 70.31 kg; Height iw 5 ft. 7 in. (170.18 cm); Pain 10/10; 08:07 BP 187 / 96; Pulse 74; ll1 10:15 BP 217 / 98; Pulse 71; ll1 10:51 BP 204 / 88; Pulse 72; Resp 15; Pulse Ox 98% on R/A; ll1 11:53 BP 199 / 82; Pulse 73; Resp 16; Pulse Ox 98% on R/A; ll1 12:16 BP 201 / 78; Pulse 74; Resp 16; Pulse Ox 97% on R/A; ll1 13:30 BP 190 / 85; Pulse 86; Resp 16; Pulse Ox 96% on R/A; ll1 14:28 BP 179 / 76; Pulse 79; Resp 15; Pulse Ox 96% on R/A; ll1 07:31 Body Mass Index 24.28 (70.31 kg, 170.18 cm) iw 10:15 after going to restroom. ll1 MDM: 07:21 Patient medically screened. [facility] 10:01 Differential diagnosis: Nonspecific abd pain, gastritis, viral gastroenteritis, hannah gastroenteritis, gastritis, non-specific abd pain, pancreatitis, Pyelonephritis, urinary tract infection. Data reviewed: vital signs, nurses notes, lab test result(s), EKG. Data interpreted: athletic monitor: rate is 74 beats/min, rhythm is regular, Pulse oximetry: on room air is 98 %. Test interpretation: by ED physician or midlevel provider: ECG. Counseling: I had a detailed discussion with the patient and/or guardian regarding: the historical points, exam findings, and any diagnostic results supporting the discharge/admit diagnosis, lab results, radiology results, the need for further work-up and treatment in the hospital. 12/27 07:24 Order name: CBC with Diff; Complete Time: 09:55 hannah 12/27 07:24 Order name: Comprehensive Metabolic Panel; Complete Time: 09:55 [facility] 12/27 07:24 Order name: Urine Sodium Random [facility] 12/27 07:24 Order name: Osmolality, Serum; Complete Time: 09:55 [facility] 12/27 07:24 Order name: Urine Osmolality [facility] 12/27 10:20 Order name: Urine Dipstick-Ancillary EDMS 12/27 07:24 Order name: Urine Dipstick-Ancillary (obtain specimen); Complete Time: 11:53 [facility] 12/27 08:06 Order name: EKG; Complete Time: 08:07 ll1 12/27 08:06 Order name: Labs - recollect needed: recollect the blood/ hemolyzed; Complete Time: eb 08:12/27 08:06 Order name: EKG - Nurse/Tech; Complete Time: 08:07 1 EC:58 Rate is 70 beats/min. Rhythm is regular. QRS [place] is Normal. [place] interval is normal. QRS hannah interval is normal. QT interval is normal. No Q waves. T waves are Normal. No ST changes noted. Clinical impression: Normal ECG and No evidence of ischemia. Interpreted by me. Reviewed by me. Administered Medications: 09:13 Drug: NS 0.9% 1000 ml Route: IV; Rate: 100 ml/hr; Site: left hand; ll1 14:27 Follow up: Response: No adverse reaction; IV Status: Completed infusion; IV Intake: ll1 1000ml 09:13 Drug: Zofran (Ondansetron) 4 mg Route: IVP; Site: left hand; ll1 10:51 Follow up: Response: No adverse reaction ll1 10:15 Drug: Ativan (LORazepam) 1 mg Route: IVP; Site: left hand; ll1 10:51 Follow up: Response: No adverse reaction ll1 10:57 Drug: morphine 4 mg {Note: rass 0, pain 9/10 LO.} Route: IVP; Infused Over: 4 mins; ll1 Site: left hand; 11:54 Follow up: Response: No adverse reaction; Pain is unchanged, physician notified; RASS: ll1 Alert and Calm (0) 10:57 Drug: Zofran (Ondansetron) 4 mg Route: IVP; Site: left hand; ll1 11:54 Follow up: Response: No adverse reaction; Nausea unchanged; RASS: Alert and Calm (0) ll1 12:10 Drug: Tylenol 650 mg {Note: pain 11/16 LO, rass 0.} Route: PO; ll1 14:27 Follow up: Response: No adverse reaction ll1 Disposition Summary: 12/27/21 10:05 Hospitalization Ordered Hospitalization Status: Inpatient Admission hannah Provider: Joseph Gustafson cha Location: Telemetry/MedSurg (Inpatient) hannah Condition: Stable hannah Problem: new hannah Symptoms: have improved hannah Bed/Room Type: Standard [facility] Room Assignment: 416(12/27/21 14:23) dw Diagnosis - Hypo-osmolality and hyponatremia - Severe hannah - Vomiting hannah - Abdominal tenderness hannah - Anxiety disorder, unspecified hannah Forms: - Medication Reconciliation Form hannah - SBAR form hannah Signatures: Dispatcher [employer] Alison Gipson RN RN dw Anderson, Corey, MD MD cha Williams, Irene, RN RN iw Botello, Elizabeth eb Lewis, Lynsay, RN RN ll1 Corrections: (The following items were deleted from the chart) 14:23 10:05 hannah dw
--- NOTE | 2021-12-27 10:06 | ER ---
Nurse's Notes [facility] Name: Jaimie Amanda Age: 61 yrs Sex: Female : 1960 Arrival Date: 12/27/2021 Time: 07:18 Bed 7 Private MD: Diagnosis: Hypo-osmolality and hyponatremia-Severe;Vomiting;Abdominal tenderness;Anxiety disorder, unspecified Presentation: 12/27 07:31 Chief complaint: Patient states: abd pain and vomiting and nausea after leaving AMA iw last night. Coronavirus screen: At this time, the client does not indicate any symptoms associated with coronavirus-19. Ebola Screen: Patient negative for fever greater than or equal to 101.5 degrees Fahrenheit, and additional compatible Ebola Virus Disease symptoms Patient denies exposure to infectious person. Patient denies travel to an Ebola-affected area in the 21 days before illness onset. No symptoms or risks identified at this time. Initial Sepsis Screen: Does the patient meet any 2 criteria? No. Patient's initial sepsis screen is negative. Does the patient have a suspected source of infection? No. Patient's initial sepsis screen is negative. Risk Assessment: Do you want to hurt yourself or someone else? Patient reports no desire to harm self or others. Onset of symptoms was December 26, 2021. 07:31 Method Of Arrival: Ambulatory iw 07:31 Acuity: ZHEN 3 iw Historical: - Allergies: 07:32 No Known Allergies; iw - PMHx: 07:32 Anxiety; Hypertensive disorder; Hypothyroidism; low NA; iw - PSHx: 07:32 Thyroidectomy; iw - Immunization history:: Adult Immunizations up to date. - Family history:: not pertinent. - Social history:: Smoking status: Patient reports the use of cigarette tobacco products, smokes one-half pack cigarettes per day. Screenin:35 Abuse screen: Denies threats or abuse. Nutritional screening: Has had N/V for 3 or more ll1 days. Tuberculosis screening: No symptoms or risk factors identified. Fall Risk IV access (20 points). Total Rubio Fall Scale indicates No Risk (0-24 pts). Assessment: 07:34 General: Appears ill, Behavior is cooperative, appropriate for age. Pain: Complains of ll1 pain in abdomen Quality of pain is described as aching. GI: Reports lower abdominal pain, upper abdominal pain, nausea, vomiting. 08:26 Reassessment: No changes from previously documented assessment. Patient and/or family ll1 updated on plan of care and expected duration. Pain level reassessed. Patient is alert, oriented x 3, equal unlabored respirations, skin warm/dry/pink. 09:14 Reassessment: No changes from previously documented assessment. Patient and/or family ll1 updated on plan of care and expected duration. Pain level reassessed. Patient is alert, oriented x 3, equal unlabored respirations, skin warm/dry/pink. 10:10 Reassessment: No changes from previously documented assessment. Patient and/or family ll1 updated on plan of care and expected duration. Pain level reassessed. Patient is alert, oriented x 3, equal unlabored respirations, skin warm/dry/pink. 10:51 Reassessment: No changes from previously documented assessment. Patient and/or family ll1 updated on plan of care and expected duration. Pain level reassessed. gait steady to restroom. 11:50 Reassessment: No changes from previously documented assessment. Patient and/or family ll1 updated on plan of care and expected duration. Pain level reassessed. Patient is alert, oriented x 3, equal unlabored respirations, skin warm/dry/pink. 12:45 Reassessment: No changes from previously documented assessment. Patient and/or family ll1 updated on plan of care and expected duration. Pain level reassessed. Patient is alert, oriented x 3, equal unlabored respirations, skin warm/dry/pink. 13:23 Reassessment: No changes from previously documented assessment. Patient and/or family ll1 updated on plan of care and expected duration. Pain level reassessed. 14:20 Reassessment: No changes from previously documented assessment. Patient and/or family ll1 updated on plan of care and expected duration. Pain level reassessed. Patient is alert, oriented x 3, equal unlabored respirations, skin warm/dry/pink. 14:30 GI: Bowel sounds present X 4 quads. Abd is soft and non tender X 4 quads. ll1 Vital Signs: 07:31 BP 196 / 95; Pulse 79; Resp 16; Temp 97.5; Pulse Ox 98% on R/A; Weight 70.31 kg; Height iw 5 ft. 7 in. (170.18 cm); Pain 10/10; 08:07 BP 187 / 96; Pulse 74; ll1 10:15 BP 217 / 98; Pulse 71; ll1 10:51 BP 204 / 88; Pulse 72; Resp 15; Pulse Ox 98% on R/A; ll1 11:53 BP 199 / 82; Pulse 73; Resp 16; Pulse Ox 98% on R/A; ll1 12:16 BP 201 / 78; Pulse 74; Resp 16; Pulse Ox 97% on R/A; ll1 13:30 BP 190 / 85; Pulse 86; Resp 16; Pulse Ox 96% on R/A; ll1 14:28 BP 179 / 76; Pulse 79; Resp 15; Pulse Ox 96% on R/A; ll1 07:31 Body Mass Index 24.28 (70.31 kg, 170.18 cm) iw 10:15 after going to restroom. ll1 ED Course: 07:18 Patient arrived in ED. am2 07:21 Diego Ramirez MD is Attending Physician. hannah 07:32 Triage completed. iw 07:34 Mikhail Otero RN is Primary Nurse. ll1 07:34 Arm band placed on. iw 07:34 Patient placed in an exam room, on a stretcher. ll1 07:35 Patient has correct armband on for positive identification. Bed in low position. Call ll1 light in reach. Side rails up X2. Client placed on continuous cardiac and pulse oximetry monitoring. NIBP monitoring applied. beef pluck trimmer on. 07:45 Missed attempt(s): 22 gauge in left antecubital area. Bleeding controlled, band aid ll1 applied, catheter tip intact. 08:13 Missed attempt(s): 22 gauge in right forearm. vg1 08:25 Missed attempt(s): 22 gauge in right antecubital area. Bleeding controlled, band aid ll1 applied, catheter tip intact. 09:14 Inserted saline lock: 24 gauge in left hand, using aseptic technique. ,using aseptic ll1 technique. IV by CATY Saleh Blood collected. 10:02 Joseph Gustafson MD is Hospitalizing Provider. hannah 14:30 No provider procedures requiring assistance completed. Patient admitted, IV remains in ll1 place. Administered Medications: 09:13 Drug: NS 0.9% 1000 ml Route: IV; Rate: 100 ml/hr; Site: left hand; ll1 14:27 Follow up: Response: No adverse reaction; IV Status: Completed infusion; IV Intake: ll1 1000ml 09:13 Drug: Zofran (Ondansetron) 4 mg Route: IVP; Site: left hand; ll1 10:51 Follow up: Response: No adverse reaction ll1 10:15 Drug: Ativan (LORazepam) 1 mg Route: IVP; Site: left hand; ll1 10:51 Follow up: Response: No adverse reaction ll1 10:57 Drug: morphine 4 mg {Note: rass 0, pain 9/10 LO.} Route: IVP; Infused Over: 4 mins; ll1 Site: left hand; 11:54 Follow up: Response: No adverse reaction; Pain is unchanged, physician notified; RASS: ll1 Alert and Calm (0) 10:57 Drug: Zofran (Ondansetron) 4 mg Route: IVP; Site: left hand; ll1 11:54 Follow up: Response: No adverse reaction; Nausea unchanged; RASS: Alert and Calm (0) ll1 12:10 Drug: Tylenol 650 mg {Note: pain 9/10 LO, rass 0.} Route: PO; ll1 14:27 Follow up: Response: No adverse reaction ll1 Medication: 07:35 VIS not applicable for this client. ll1 Intake: 14:27 IV: 1000ml; Total: 1000ml. 1 Outcome: 10:05 Decision to Hospitalize by Provider. hannah 14:31 Admitted to Med/surg accompanied by tech, via wheelchair, with chart. ll1 14:31 Condition: stable 14:31 Instructed on the need for admit. 15:08 Patient left the ED. 1 Signatures: Diego Ramirez MD MD cha Williams, Irene, RN RN Elisa Nichole Victoria, RN RN ines1 Mikhail Otero RN RN ll1 Corrections: (The following items were deleted from the chart) 07:34 07:31 Pulse 79bpm; Resp 16bpm; Pulse Ox 98% RA; Temp 97.5F; 70.31 kg; Height 5 ft. 7 iw in.; BMI: 24.2; Pain 10/10; iw
[2021-12-27] MEDS ORDERED: LORazepam 2 MG/ML VIAL ONE (10:11)
[2021-12-27 10:20] LABS: Urine Blood Trace-intact (Negative); Urine Glucose Negative (Negative); Urine Protein Negative (Negative); Urine Specific Gravity 1.015 (1.005-1.030)
[2021-12-27] MEDS ORDERED: MORPHINE 4 MG/ML SYR ONE (10:49)
[2021-12-27] MEDS ORDERED: ACETAMINOPHEN 325 MG TABLET ONE (12:09)
[2021-12-27] MEDS ORDERED: ONDANSETRON 4 MG/2 ML VIAL IV PRN (13:06)
[2021-12-27] MEDS ORDERED: clonazePAM 1 MG TAB PO PRN (13:06)
[2021-12-27] MEDS ORDERED: cloNIDine HCL 0.1 MG TAB ONE (13:11)
--- NOTE | 2021-12-27 13:17 | P.HP ---
Certification for Inpatient Patient admitted to: Observation With expected LOS: <2 Midnights Practitioner: I am a practitioner with admitting privileges, knowledge of patient current condition, hospital course, and medical plan of care. Services: Services provided to patient in accordance with Admission requirements found in Title 42 Section 412.3 of the Code of Federal Regulations Patient History Date of Service: 12/27/21 History of Present Illness: 61-year-old woman with a history of epilepsy on Trileptal, multiple hospitalizations for hyponatremia presented to the emergency department with a complaint of nausea and vomiting and abdominal pain and generalized weakness yesterday. Blood work in the ED showed hyponatremia with sodium level of 113, low chloride level and low serum osmolality indicating dilution from SIADH. Patient was hospitalized for management but signed out AMA several hours later. She presented to the emergency department this morning accompanied by her mother because according to the mother patient was up all night vomiting. Sodium level has improved to 121. Patient was seen sitting at the edge of the bed and eating a cheeseburger during my assessment. He is alert and oriented, not lethargic. Patient is hospitalized for further management. Allergies No Known Allergies Allergy (Verified 12/14/21 16:45) Home Medications: Benztropine Mesylate [Cogentin] 0.5 mg PO BEDTIME 03/10/21 Doxepin HCl [Sinequan] 50 mg PO BEDTIME 03/10/21 Levothyroxine Sodium [Synthroid] 137 mcg PO DAILY 03/10/21 Linaclotide [Linzess] 72 mcg PO DAILYPRN PRN 03/10/21 Losartan/Hydrochlorothiazide [Losartan-Hctz 100-25 mg Tab] 1 each PO DAILY 03/10/21 Metformin HCl [Glucophage*] 500 mg PO BIDWM 03/10/21 Metoclopramide HCl [Reglan] 10 mg PO QID 03/10/21 OXcarbazepine [Trileptal] 2 tab PO DAILY AFTER SUPPER 03/10/21 OXcarbazepine [Trileptal] 600 mg PO DAILY 03/10/21 Omeprazole [Prilosec] 40 mg PO DAILY 03/10/21 Propranolol [Inderal*] 10 mg PO BIDP PRN 03/10/21 Risperidone [Risperdal] 2 mg PO BID 03/10/21 Zolpidem Tartrate [Ambien*] 10 mg PO BEDTIME 03/10/21 cloNIDine HCL [Catapres*] 0.3 mg PO Q8H 03/10/21 clonazePAM [Klonopin*] 1 mg PO TIDP PRN 03/10/21 ondansetron HCL [Zofran] 4 mg PO Q8HP PRN 03/10/21 Sucralfate [Carafate*] 10 ml PO ACS #420 ucup 08/07/21 - Past Medical/Surgical History Diabetic: No -: Hepatitis -: Anxiety -: HTN -: Hypothyroidism -: Alcoholic induced seizures -: NIDDM -: Thyroidectomy -: Plastic surgery breast -: hernia repair Psychosocial/ Personal History: Patient lives at home with her mother - Family History Mother -: Hypertension, Diabetes, Cancer Notes: Thyroid, Knee replacement Father -: Heart disease, Hypertension, Diabetes - Social History Alcohol use: Yes CD- Drugs: No Caffeine use: Yes Review of Systems Other: Patient denies any diarrhea or abdominal pain. She denies any shortness of breath. She endorses anxiety. Except as documented, all other systems reviewed and negative. Physical Examination - Physical Exam General: Alert, In no apparent distress, Oriented x3, Obese HEENT: Normocephalic, Mucous membr. moist/pink, EOMI, Sclerae nonicteric Neck: Supple, JVD not distended Respiratory: Clear to auscultation bilaterally, Normal air movement Cardiovascular: No edema, Regular rate/rhythm, Normal S1 S2, No murmurs Capillary refill: <2 Seconds Gastrointestinal: Normal bowel sounds, Soft and benign, No tenderness Musculoskeletal: No swelling, No tenderness Integumentary: No rashes, No cyanosis Neurological: Normal speech, Normal strength at 5/5 x4 extr, Cranial nerves 3-12 intact Lymphatics: No axilla or inguinal lymphadenopathy - Studies Laboratory Data (last 24 hrs) 12/27/21 09:10: Sodium 121 L, Potassium 4.0, BUN 9, Creatinine 0.67, Glucose 130 H, Total Bilirubin 0.4, AST 25, ALT 77, Alkaline Phosphatase 107 12/27/21 07:45: WBC 9.50, Hgb 13.9 D, Hct 40.7, Plt Count 413 H Assessment and Plan - Problems (Diagnosis) (1) Nausea and vomiting Current Visit: Yes Status: Acute (2) Acute hyponatremia Current Visit: No Status: Acute (3) Seizure disorder Current Visit: No Status: Acute (4) Diabetes Current Visit: No Status: Chronic Qualifiers: (5) Hypertension Onset Date: 11/21/16 Current Visit: No Status: Chronic Qualifiers: Hypertension type: primary hypertension Qualified Code(s): I10 - Essential (primary) hypertension (6) Hypothyroidism Current Visit: No Status: Chronic Qualifiers: Hypothyroidism type: unspecified Qualified Code(s): E03.9 - Hypothyroidism, unspecified - Plan Admit patient to the medical floor. Hyponatremia likely secondary to SIADH and dehydration. Hydrate with IV normal saline. Free water restriction Monitor BMP closely. SIADH likely secondary to Trileptal. Neurology consulted to evaluate patient antiseizure medications. Reconcile and continue other home medications. - Advance Directives Does patient have a Living Will: No Does patient have a Durable POA for Healthcare: No
[2021-12-27] MEDS: CLONIDINE HCL 0.3 MG TAB PO SCH (13:19)
[2021-12-27 13:24] VITALS: BMI 24.1
[2021-12-27] MEDS ORDERED: GLUCAGON 1 MG/VIAL IM PRN (13:29)
[2021-12-27] MEDS ORDERED: D50W 25 GM/50 ML SYRINGE IV PRN (13:29)
[2021-12-27] MEDS ORDERED: D10W 125 ML IV PRN (13:34)
[2021-12-27] MEDS ORDERED: levETIRAcetam 1,000 MG in NA CHLORIDE 0.9% 100 ML IV ONE (13:37)
[2021-12-27] MEDS ORDERED: LEVETIRACETAM 500 MG/5 ML VIAL IV ONE (13:47)
[2021-12-27] MEDS: NA CHLORIDE 0.9% 1,000 ML IV SCH ×2 (15:36→18:23)
[2021-12-27] MEDS ORDERED: NA CHLORIDE 0.9% 500 ML IV ONE ×2 (16:00→23:51)
[2021-12-27] MEDS: INSULIN -REGULAR HUMAN 50 UNIT/0.5 ML ML SQ SCH ×2 (16:30→21:00)
[2021-12-27 17:48] LABS: Potassium 4.2 mmol/L (3.5-5.1)
[2021-12-27 20:16] VITALS: O2SAT 94
[2021-12-27 20:38] LABS: Potassium 3.6 mmol/L (3.5-5.1)
[2021-12-27] MEDS: levETIRAcetam 500 MG TAB PO SCH (22:02)
[2021-12-27] MEDS ORDERED: MIDODRINE HCL 5 MG TABLET PO ONE (23:00)
[2021-12-28] MEDS: CLONIDINE HCL 0.3 MG TAB PO SCH (00:19)
[2021-12-28] MEDS: NA CHLORIDE 0.9% 1,000 ML IV SCH (00:45)
[2021-12-28 02:15] LABS: Absolute Lymphocytes (CBC) 2.1 K/uL (0.7-4.9); Lymphocytes % 22.4 % (15.3-44.8); MCV 91.7 fL (80-100); MPV 6.5 fL (7.6-11.3); RBC Red Blood Cell Count 3.71 M/uL (3.86-4.86)
[2021-12-28 02:36] LABS: Magnesium 1.9 mg/dL (1.8-2.4); Phosphorus 4.1 mg/dL (2.5-4.9); Potassium 3.5 mmol/L (3.5-5.1)
[2021-12-28] MEDS ORDERED: POTASSIUM CL SA 10 MEQ TAB PO ONE (05:04)
[2021-12-28] MEDS ORDERED: LEVOTHYROXINE SOD 0.025 MG TAB PO SCH (06:30)
[2021-12-28] MEDS ORDERED: LEVOTHYROXINE SOD 0.112 MG TAB PO SCH (06:30)
[2021-12-28] MEDS: INSULIN -REGULAR HUMAN 50 UNIT/0.5 ML ML SQ SCH (07:30)
[2021-12-28 08:00] LABS: Potassium 3.6 mmol/L (3.5-5.1)
[2021-12-28 08:10] VITALS: BP 107/51; TEMP 97.4
[2021-12-28] MEDS: levETIRAcetam 500 MG TAB PO SCH (08:52)
[2021-12-28] MEDS ORDERED: HOME MED 1 EA UNK (Levothyroxine Sodium [Synthroid] 137 MCG Tablet) PO SCH (09:00)
[2021-12-28] MEDS ORDERED: ENOXAPARIN 40 MG/0.4 ML SQ SCH (09:00)
--- NOTE | 2021-12-28 10:43 | P.DS ---
Admission Date: 12/27/21 Discharge Date: 12/28/21 Disposition: ROUTINE DISCHARGE Discharge Condition: FAIR - Problems (1) Nausea and vomiting Status: Acute (2) Acute hyponatremia Status: Acute (3) Seizure disorder Status: Acute (4) Diabetes Status: Chronic Qualifiers: (5) Hypertension Onset Date: 11/21/16 Status: Chronic Qualifiers: Hypertension type: primary hypertension Qualified Code(s): I10 - Essential (primary) hypertension (6) Hypothyroidism Status: Chronic Qualifiers: Hypothyroidism type: unspecified Qualified Code(s): E03.9 - Hypothyroidism, unspecified Brief History of Present Illness: 61-year-old woman with a history of epilepsy on Trileptal, multiple hospitalizations for hyponatremia presented to the emergency department with a complaint of nausea and vomiting and abdominal pain and generalized weakness yesterday. Blood work in the ED showed hyponatremia with sodium level of 113, low chloride level and low serum osmolality indicating dilution from SIADH. Patient was hospitalized for management but signed out AMA several hours later. She presented to the emergency department this morning accompanied by her mother because according to the mother patient was up all night vomiting. Sodium level has improved to 121. Patient was seen sitting at the edge of the bed and eating a cheeseburger during my assessment. He is alert and oriented, not lethargic. Patient is hospitalized for further management. Hospital Course: Mated to the medical floor and treated with IV normal saline and fluid restriction for SIADH. Case discussed with neurology Dr. Stewart who recommended changing patient's antiepileptic-Trileptal to Keppra due to recurrent SIADH. She was given a loading dose Keppra 1000 mg followed by oral Keppra 500 mg twice a day. Her sodium level improved with treatment. Patient remained awake and alert and asymptomatic. She developed brief hypotension and patient was resuscitated with IV normal saline. Her blood pressure has improved and she is currently hypertensive. Patient deemed clinically stable for discharge. Her antihypertensives are resumed on discharge. Vital Signs/Physical Exam: Temp Pulse Resp BP Pulse Ox 97.4 F 64 16 107/51 L 95 12/28/21 08:00 12/28/21 08:00 12/28/21 08:00 12/28/21 08:00 12/28/21 08:00 General: Alert, In no apparent distress, Obese HEENT: Mucous membr. moist/pink Neck: JVD not distended Respiratory: Clear to auscultation bilaterally, Normal air movement Cardiovascular: No edema, Regular rate/rhythm, Normal S1 S2 Gastrointestinal: Soft and benign, Non-distended, No tenderness Musculoskeletal: No swelling Integumentary: No rashes Neurological: Normal strength at 5/5 x4 extr, Cranial nerves 3-12 intact Laboratory Data at Discharge: WBC 9.30 K/uL (4.3-10.9) 12/28/21 02:03 Hgb 11.7 g/dL (12.0-15.0) L D 12/28/21 02:03 Hct 34.0 % (36.0-45.0) L 12/28/21 02:03 Plt Count 309 K/uL (152-406) 12/28/21 02:03 Sodium 130 mmol/L (136-145) L 12/28/21 07:22 Potassium 3.6 mmol/L (3.5-5.1) 12/28/21 07:22 BUN 12 mg/dL (7-18) 12/28/21 07:22 Creatinine 0.66 mg/dL (0.55-1.3) 12/28/21 07:22 Glucose 126 mg/dL (74-106) H 12/28/21 07:22 Phosphorus 4.1 mg/dL (2.5-4.9) 12/28/21 02:03 Magnesium 1.9 mg/dL (1.8-2.4) 12/28/21 02:03 Total Bilirubin 0.4 mg/dL (0.2-1.0) 12/27/21 09:10 AST 25 U/L (15-37) 12/27/21 09:10 ALT 77 U/L (12-78) 12/27/21 09:10 Alkaline Phosphatase 107 U/L (45-117) 12/27/21 09:10 Triglycerides 144 mg/dL (<150) 12/28/21 02:03 Cholesterol 211 mg/dL (<200) H 12/28/21 02:03 HDL Cholesterol 47 mg/dL (40-60) 12/28/21 02:03 Cholesterol/HDL Ratio 4.49 12/28/21 02:03 Home Medications: Levothyroxine Sodium [Synthroid] 137 mcg PO DAILY 03/10/21 Losartan/Hydrochlorothiazide [Losartan-Hctz 100-25 mg Tab] 1 tab PO DAILY 03/10/21 Metformin HCl [Glucophage*] 500 mg PO DAILY 03/10/21 Metoclopramide HCl [Reglan] 10 mg PO QID 03/10/21 Omeprazole [Prilosec] 40 mg PO DAILY 03/10/21 Risperidone [Risperdal] 2 mg PO BID 03/10/21 cloNIDine HCL [Catapres*] 0.3 mg PO Q8H 03/10/21 clonazePAM [Klonopin*] 1 mg PO TIDP PRN 03/10/21 ondansetron HCL [Zofran] 4 mg PO Q8HP PRN 03/10/21 Trazodone [Desyrel*] 100 mg PO BEDTIME 12/27/21 Venlafaxine HCl [Effexor] 100 mg PO TID 12/27/21 levETIRAcetam [Keppra*] 500 mg PO BID #60 tab 12/28/21 New Medications: levETIRAcetam [Keppra*] 500 mg PO BID #60 tab Diet: ADA Activity: Fall precautions Followup: NONE,NONE [Primary Care Provider] - Haris Stewart MD [ASSOCIATE-ACTIVE - CAN ADMIT] - 1-2 Weeks
--- NOTE | 2021-12-28 16:54 | EKG ---
Test Date: 2021-12-27 Test Time: 07:57:46 Chef Kitchen Manager: LML MEASUREMENT RESULTS: Intervals: Rate: 70 PA: 180 QRSD: 88 QT: 406 QTc: 438 [place]: P: 52 PA: 180 QRS: 76 T: 63 INTERPRETIVE STATEMENTS: Normal sinus rhythm Normal ECG Compared to ECG 12/26/2021 09:58:47 Sinus bradycardia no longer present Electronically Signed On 12-28-21 16:53:30 CDT by Brian Booker
== END 2021-12-28 11:00 | disposition home or self-care (01) | DRG 645 ==
LOC: ER 07:18 → ERHOLD 12:53 → 4TH 14:53
PROVIDERS: ADMIT Internal Medicine; ATTEND Internal Medicine
DX: E22.2 Syndrome of inappropriate secretion of antidiuretic hormone (principal); E86.0 Dehydration; Z53.29 Procedure and treatment not carried out because of patient's decision for other reasons; G40.909 Epilepsy, unspecified, not intractable, without status epilepticus; I95.9 Hypotension, unspecified; E11.9 Type 2 diabetes mellitus without complications; I10 Essential (primary) hypertension; E89.0 Postprocedural hypothyroidism; F41.9 Anxiety disorder, unspecified; R10.9 Unspecified abdominal pain; K75.9 Inflammatory liver disease, unspecified; F17.210 Nicotine dependence, cigarettes, uncomplicated; Z79.84 Long term (current) use of oral hypoglycemic drugs; Z79.899 Other long term (current) drug therapy; Z82.49 Family history of ischemic heart disease and other diseases of the circulatory system; Z83.3 Family history of diabetes mellitus; Z80.8 Family history of malignant neoplasm of other organs or systems
CPT/HCPCS: 36415; 80048; 80053; 80061; 81003; 82947; 83735; 83930; 83935; 84100; 84300; 85025; 93005; 94760; 96361; 96374; 96375; 99285; J1650; J1953; J2405; J7030

== ENCOUNTER 2021-12-28 20:24 | Observation (INO) | payer OTHER ==
--- OUTSIDE RECORDS SUMMARY | 2021-12-28 20:32 | XMS REPORT | Continuity of Care Document ---
:1960 Author Organization [facility] t Address [address] [place] [address] Care Team Providers Name Role Phone Sharpless Primary Care Physician MATT SIMPSON Attending Clinician Unavailable MATT SIMPSON Attending Clinician Unavailable Doctor Unassigned, [place] Attending Clinician Unavailable WALLY KRISHNAMURTHY Attending Clinician Unavailable Gramm Natacha CLARK Attending Clinician Payers Payer Name Policy Type Policy Number Effective Date Expiration Date Sarina castelan [facility] [id number] 2017 00:00:00 PLUS Problems This patient has [...] s TRANSDER 5- ity of MAL 00:00: [place] 00 [facility] ACETAMIN DRUG Active Other-Cmnt Univ ers OPHEN INGREDI 07-27 ity of 00:00: [place] [address] [facility] Branch Hmg-Coa Propensi Inactiv Reductas ty to e 2-28 e adverse 00:00: Inhibito reaction 00 rs to drug Nitrogly Propensi Active 2017-03 cerin ty to 1-08 adverse 00:00: reaction 00 to drug Social History Social Habit Start Date Stop Date Quantity Comments Source Alcohol intake 2016-05-01 2016-05-01 Current [facility] es 00:00:00 00:00:00 non-drinker of Medical nter alcohol (finding) Sex Assigned At [birth year] [facility] 00:00:00 00:00:00 [facility] Smoking Status Start Date Stop Date Source Current every day smoker 2016-05-01 00:00:00 [facility] Medications Ordered Filled Start Stop Current Ordering [...] capsule 00:00: 00 OXcarbazepi 0 Yes 600mg Q.[id number] Take [address] [address] ne 2-23 [id number] [facility] (TR[facility]AL) 10:23: 3D mouth 3 Med ical 600 MG 59 (three) Center tablet times daily. PARoxetine 2017-0 Yes 40mg QD Take [address] (PAXIL) 40 2-23 [facility] tablet 10:23: nightly. Medi anjelica [facility] Center OXcarbazepi 2016-0 Yes 600mg Q.[id number] Take [address] ne 2-23 [id number] [facility] (TRILEPTAL) 10:23: 3D mouth 3 Med ical 600 MG 59 (three) Center tablet times daily. PARoxetine 2017-0 Yes 40mg QD Take [address] (PAXIL) 40 2-23 [facility] tablet 10:23: nightly. Medi anjelica [facility] Center OXcarbazepi 2017-0 Yes 600mg Q.20526250 Take [address] ne 2-23 [id number] [facility] (TRILEPTAL) 10:23: 3D mouth 3 Med ical 600 MG 59 (three) Center tablet times daily. PARoxetine 2017-0 Yes 40mg QD Take [address] (PAXIL) 40 2-23 [facility] tablet 10:23: nightly. Medi anjelica [facility] Center OXcarbazepi 2017-0 Yes 600mg Q.13320766 Take [address] ne 2-23 [id number] [facility] (TRILEPTAL) 10:23: 3D mouth 3 Med ical 600 MG 59 (three) Center tablet times daily. PARoxetine 2017-0 Yes 40mg QD Take [address] (PAXIL) 40 2-23 [facility] tablet 10:23: nightly. [address] OXcarbazepi 2017-0 Yes 600mg Q.71655436 Take [address] ne 2-23 [id number] [facility] (TRILEPTAL) 10:23: 3D mouth 3 Med ical 600 MG 59 (three) Center tablet times daily. PARoxetine 2017-0 Yes 40mg QD Take [address] (PAXIL) 40 2-23 [facility] tablet 10:23: nightly. [address] OXcarbazepi 2017-0 Yes 600mg Q.11197945 Take [address] ne 2-23 [id number] [facility] (TRILEPTAL) 10:23: 3D mouth 3 Med ical 600 MG 59 (three) Center tablet times daily. PARoxetine 2017-0 Yes 40mg QD Take [address] (PAXIL) 40 2-23 [facility] tablet 10:23: nightly. [address] OXcarbazepi 2017-0 Yes 600mg Q.02547388 Take [address] ne 2-23 8983081985 [facility] (TRILEPTAL) 10:23: 3D mouth 3 Med ical 600 MG 59 (three) Center tablet times daily. PARoxetine 2017-0 Yes 40mg QD Take [address] (PAXIL) 40 2-23 by [facility] tablet 10:23: nightly. [address] LORazepam 2017-0 Yes 1mg Take 1 [...] Goal Plan of Care Note [code = 98291-6] Goal Plan of Care Note [code = 47321-6] Goal Plan of Care Note [code = 57931-7] Goal Plan of Care Note [code = 29295-5] Goal Plan of Care Note [code = 06413-3] Goal Plan of Care Note [code = 98063-2] Goal Plan of Care Note [code = 46017-6] Goal Plan of Care Note [code = 04096-7] Goal Plan of Care Note [code = 01158-3] Goal Plan of Care Note [code = 58252-9] Goal Plan of Care Note [code = 47769-8] Goal Plan of Care Note [code = 43745-7] Goal Plan of Care Note [code = 24933-2] Goal Plan of Care Note [code = 82338-3] Goal Plan of Care Note [code = 92853-4] Goal Plan of Care Note [code = 77553-5] Goal Plan of Care Note [code = 78193-1] Goal Plan of Care Note [code = 44695-3] Goal Plan of Care Note [code = 72350-5] Goal Plan of Care Note [code = 38242-1] Goal Plan of Care Note [code = 52593-1] Goal Plan of Care Note [code = 05961-0] Goal Plan of Care Note [code = 07137-8] Goal Plan of Care Note [code = 01902-6] Goal Plan of Care Note [code = 81622-1] Goal Plan of Care Note [code = 88669-8] Goal Plan of Care Note [code = 87301-6] Goal Plan of Care Note [code = 18597-1] Goal Plan of Care Note [code = 24071-0] Goal Plan of Care Note [code = 53371-6] Goal Plan of Care Note [code = 54426-2] Goal Plan of Care Note [code = 89360-4] Goal Plan of Care Note [code = 40599-7] Goal Plan of Care Note [code = 24758-0] Goal Plan of Care Note [code = 74392-2] Goal Plan of Care Note [code = 01703-8] Goal Plan of Care Note [code = 69794-2] Goal Plan of Care Note [code = 16065-7] Goal Plan of Care Note [code = 47184-4] Goal Plan of Care Note [code = 81317-0] Goal Plan of Care Note [code = 00766-9] Goal Plan of Care Note [code = 20070-1] Goal Plan of Care Note [code = 94734-9] Goal Plan of Care Note [code = 13266-0] Goal Plan of Care Note [code = 99916-7] Goal Plan of Care Note [code = 24776-9] Goal Plan of Care Note [code = 08707-7] Goal Plan of Care Note [code = 32999-4] Goal Plan of Care Note [code = 37972-5] Goal Plan of Care Note [code = 22664-0] Goal Plan of Care Note [code = 56052-9] Goal Plan of Care Note [code = 46761-4] Goal Plan of Care Note [code = 63691-4] Goal Plan of Care Note [code = 33528-7] Goal Plan of Care Note [code = 70792-1] Goal Plan of Care Note [code = 80814-0] Goal Plan of Care Note [code = 94479-7] Goal Plan of Care Note [code = 21947-9] Goal Plan of Care Note [code = 89377-4] Goal Plan of Care Note [code = 08303-3] Goal Plan of Care Note [code = 68118-2] Goal Plan of Care Note [code = 60260-9] Goal Plan of Care Note [code = 12831-4] Goal Plan of Care Note [code = 97808-8] Goal Plan of Care Note [code = 46395-5] Goal Plan of Care Note [code = 90973-3] Goal Plan of Care Note [code = 65028-1] Goal Plan of Care Note [code = 25933-7] Goal Plan of Care Note [code = 91338-8] Goal Plan of Care Note [code = 38192-1] Goal Plan of Care Note [code = 90612-5] Goal Plan of Care Note [code = 00187-4] Goal Plan of Care Note [code = 64484-5] Goal Plan of Care Note [code = 32183-1] Goal Plan of Care Note [code = 24642-1] Goal Plan of Care Note [code = 93008-0] Goal Plan of Care Note [code = 86066-5] Goal Plan of Care Note [code = 34255-3] Goal Plan of Care Note [code = 96040-9] Goal Plan of Care Note [code = 30574-3] Goal Plan of Care Note [code = 29005-7] Goal Plan of Care Note [code = 09287-6] Goal Plan of Care Note [code = 16770-3] Goal Plan of Care Note [code = 01361-1] Goal Plan of Care Note [code = 72688-8] Goal Plan of Care Note [code = 65744-6] Goal Plan of Care Note [code = 90320-5] Goal Plan of Care Note [code = 62231-6] Goal Plan of Care Note [code = 26978-5] Goal Plan of Care Note [code = 85794-4] Goal Plan of Care Note [code = 13911-9] Goal Plan of Care Note [code = 04470-2] Goal Plan of Care Note [code = 57778-7] Goal Plan of Care Note [code = 40267-4] Goal Plan of Care Note [code = 07403-4] Goal Plan of Care Note [code = 00438-8] Goal Plan of Care Note [code = 57196-2] Goal Plan of Care Note [code = 19730-2] Goal Plan of Care Note [code = 19147-3] Goal Plan of Care Note [code = 57548-3] Goal Plan of Care Note [code = 99159-6] Goal Plan of Care Note [code = 83074-2] Encounters Start End Encounter Admission Attending Care Care Encounter Source Date/Time Date/Time Type Type Clinicians Facility Department ID 2021-06-01 Outpatient [facility] [id number] [place] 01:36:29 [id number] [facility] 2021-12-19 2021-12-19 Outpatient SFA SFA [id number] Cristian 16:11:31 16:11:31 1013 F Jerman 2021-12-19 2021-12-19 Outpatient [id number]-[id number] 00:00:00 00:00:00 Visit [id number]-a -adae-62b amelia-62bace dyupf08ff fd81af 2021-09-17 2021-09-17 Outpatient qrw8vmsw- [id number] p3agzy-7 00:00:00 00:00:00 Visit 935a-4f50 35a-4f50-b -c92v-v6e 77d-c2ba85 [id number] 1264a6 2020-08-03 2020-08-03 Outpatient MATT VÁSQUEZ [facility] [id number] Univers 10:00:00 10:00:[address] [facility] 2020-07-25 2020-07-25 Orders Doctor FISH [id number] 00:00:00 00:00:00 Only Unassigned, [place] 350.1.13.10 [place] [facility] 4.2.7.2.686 [id number] 2019-09-26 2019-09-26 Outpatient Bertin KRISHNAMURTHY [facility] [id number] Univers 16:00:00 16:00:[address] [facility] 2018-10-21 2018-10-21 Telephone Gramm, [facility] [id number] 00:00:00 00:00:00 Natacha Nguyen 350.1.13.10 [place] 4.2.7.2.686 [place] [id number] nal 204 Building Results Test Description Test Time Test Comments Results Result Comments Source TSH, THIRD GENERATION 2021-06-27 05:15:49 Test Item Value Reference Range Interpretation Comme nts TSH, THIRD GENERATION (test code = 2821) 2.080 UIU/ML 0.400-4.100 HEMOGLOBIN [id number] 03:46:00 Test Item Value Reference Range Interpretation Comments HEMOGLOBIN A1c (test 6.6 % 4.2-5.6 H AMERIC AN DIABETES code = 62296) ASSOCIATION IDELINES FOR HGB A1C: PREDIABETES/INC REASED [...] INDICATED, ALL TESTING PER FORMED ATCLINICAL PATH [facility], [facility]. [address] [place] [address] 41 LABORATORY DIRE CTOR: DIANA RUSS M.D. CLIA NUMBER [id number] [facility] [place]. [id number] LIPID [id number] 02:59:52 Test Item Value Reference Range Interpretation [...] MOREINFORMATION , SEE CLIENT ANNOUNCE MENT AT [email or web address] /CalcLDL-C RISK RATIO LDL/HDL 4.02 RATIO <3.22 H (test code = 2238) [id number] 00:00:00 Test Item Value Reference Range Interpretation Comments TSH, THIRD GENERATION (test code 2.080 UIU/ML = 2821) [id number] 00:00:00 Test Item Value Reference Range Interpretation Comments TSH, THIRD GENERATION (test code 2.080 UIU/ML = 2821) LIPID [id number] 00:00:00 Test Item Value Reference Range Interpretation Comments CHOLESTEROL (test code = 2210) 292 MG/DL TRIGLYCERIDES (test code = 2232) 184 MG/DL HDL CHOLESTEROL (test code = 2220) 51 MG/DL CALC LDL CHOL (test code = 2237) 205 MG/DL RISK RATIO LDL/HDL (test code = 4.02 RATIO 2238) HEMOGLOBIN [id number] 00:00:00 Test Item Value Reference Range Interpretation Comments HEMOGLOBIN A1c (test code = 95119) 6.6 % HEMOGLOBIN [id number] 00:00:00 Test Item Value Reference Range Interpretation Comments HEMOGLOBIN A1c (test code = 54024) 6.6 % [id number] 00:00:00 Test Item Value Reference Range Interpretation Comments TSH, THIRD GENERATION (test code 2.080 UIU/ML = 2821) [id number] 00:00:00 Test Item Value Reference Range Interpretation Comments TSH, THIRD GENERATION (test code 2.080 UIU/ML = 2821) [id number] 00:00:00 Test Item Value Reference Range Interpretation Comments TSH, THIRD GENERATION (test code 2.080 UIU/ML = 2821) LIPID [id number] 00:00:00 Test Item Value Reference Range Interpretation Comments CHOLESTEROL (test code = 2210) 292 MG/DL TRIGLYCERIDES (test code = 2232) 184 MG/DL HDL CHOLESTEROL (test code = 2220) 51 MG/DL CALC LDL CHOL (test code = 2237) 205 MG/DL RISK RATIO LDL/HDL (test code = 4.02 RATIO 2238) LIPID [id number] 00:00:00 Test Item Value Reference Range Interpretation Comments CHOLESTEROL (test code = 2210) 292 MG/DL TRIGLYCERIDES (test code = 2232) 184 MG/DL HDL CHOLESTEROL (test code = 2220) 51 MG/DL CALC LDL CHOL (test code = 2237) 205 MG/DL RISK RATIO LDL/HDL (test code = 4.02 RATIO 2238) HEMOGLOBIN [id number] 00:00:00 Test Item Value Reference Range Interpretation Comments HEMOGLOBIN A1c (test code = 93249) 6.6 % HEMOGLOBIN [id number] 00:00:00 Test Item Value Reference Range Interpretation Comments HEMOGLOBIN A1c (test code = 99130) 6.6 % HEMOGLOBIN [id number] 00:00:00 Test Item Value Reference Range Interpretation Comments HEMOGLOBIN A1c (test code = 50855) 6.6 % HEMOGLOBIN [id number] 00:00:00 Test Item Value Reference Range Interpretation Comments HEMOGLOBIN A1c (test code = 55125) 6.8 % HEMOGLOBIN [id number] 00:00:00 Test Item Value Reference Range Interpretation Comments HEMOGLOBIN A1c (test code = 95167) 6.8 % LIPID [id number] 00:00:00 Test Item Value Reference Range Interpretation Comments CHOLESTEROL (test code = 2210) 303 MG/DL TRIGLYCERIDES (test code = 2232) 191 MG/DL HDL CHOLESTEROL (test code = 2220) 61 MG/DL CALC LDL CHOL (test code = 2237) 205 MG/DL RISK RATIO LDL/HDL (test code = 3.36 RATIO 2238) [id number] 00:00:00 Test Item Value Reference Range Interpretation Comments TSH, THIRD GENERATION (test code 0.769 UIU/ML = 2821) [id number] 00:00:00 Test Item Value Reference Range Interpretation Comments TSH, THIRD GENERATION (test code 0.769 UIU/ML = 2821) COMPREHENSIVE METABOLIC [id number] 00:00:00 Test Item Value Reference Range Interpretation Comments GLUCOSE (test code = 2217) 131 MG/DL BUN (test code = 2208) 13 MG/DL CREATININE (test code = 2214) 0.65 MG/DL eGFR AMER. (test code 113 ML/MIN/1.73 = 09174) eGFR NON- AMER. (test 97 ML/MIN/1.73 code = 50012) CALC BUN/CREAT (test code = 20 RATIO [...] (test code = 2219) 23 U/L HEMOGLOBIN [id number] 00:00:00 Test Item Value Reference Range Interpretation Comments HEMOGLOBIN A1c (test code = 54157) 6.8 % HEMOGLOBIN [id number] 00:00:00 Test Item Value Reference Range Interpretation Comments HEMOGLOBIN A1c (test code = 01519) 6.8 % HEMOGLOBIN [id number] 00:00:00 Test Item Value Reference Range Interpretation Comments HEMOGLOBIN A1c (test code = 86583) 6.8 % LIPID [id number] 00:00:00 Test Item Value Reference Range Interpretation Comments CHOLESTEROL (test code = 2210) 303 MG/DL TRIGLYCERIDES (test code = 2232) 191 MG/DL HDL CHOLESTEROL (test code = 2220) 61 MG/DL CALC LDL CHOL (test code = 2237) 205 MG/DL RISK RATIO LDL/HDL (test code = 3.36 RATIO 2238) LIPID [id number] 00:00:00 Test Item Value Reference Range Interpretation Comments CHOLESTEROL (test code = 2210) 303 MG/DL TRIGLYCERIDES (test code = 2232) 191 MG/DL HDL CHOLESTEROL (test code = 2220) 61 MG/DL CALC LDL CHOL (test code = 2237) 205 MG/DL RISK RATIO LDL/HDL (test code = 3.36 RATIO 2238) [id number] 00:00:00 Test Item Value Reference Range Interpretation Comments TSH, THIRD GENERATION (test code 0.769 UIU/ML = 2821) [id number] 00:00:00 Test Item Value Reference Range Interpretation Comments TSH, THIRD GENERATION (test code 0.769 UIU/ML = 2821) [id number] 00:00:00 Test Item Value Reference Range Interpretation Comments TSH, THIRD GENERATION (test code 0.769 UIU/ML = 2821) COMPREHENSIVE METABOLIC [id number] 00:00:00 Test Item Value Reference Range Interpretation Comments GLUCOSE (test code = 2217) 131 MG/DL BUN (test code = 2208) 13 MG/DL CREATININE (test code = 2214) 0.65 MG/DL eGFR AMER. (test code 113 ML/MIN/1.73 = 60736) eGFR NON- AMER. (test 97 ML/MIN/1.73 code = 57743) CALC BUN/CREAT (test code = 20 RATIO [...] code = 2219) 23 U/L COMPREHENSIVE METABOLIC [id number] 00:00:00 Test Item Value Reference Range Interpretation Comments GLUCOSE (test code = 2217) 131 MG/DL BUN (test code = 2208) 13 MG/DL CREATININE (test code = 2214) 0.65 MG/DL eGFR AMER. (test code 113 ML/MIN/1.73 = 45581) eGFR NON- AMER. (test 97 ML/MIN/1.73 code = 17938) CALC BUN/CREAT (test code = 20 RATIO [...] (test code = 2219) 23 U/L HEMOGLOBIN [id number] 00:00:00 Test Item Value Reference Range Interpretation Comments HEMOGLOBIN A1c (test code = 43447) 6.6 % HEMOGLOBIN [id number] 00:00:00 Test Item Value Reference Range Interpretation Comments HEMOGLOBIN A1c (test code = 80090) 6.6 % LIPID [id number] 00:00:00 Test Item Value Reference Range Interpretation Comments CHOLESTEROL (test code = 2210) 261 MG/DL TRIGLYCERIDES (test code = 2232) 159 MG/DL HDL CHOLESTEROL (test code = 2220) 82 MG/DL CALC LDL CHOL (test code = 2237) 150 MG/DL RISK RATIO LDL/HDL (test code = 1.83 RATIO 2238) COMPREHENSIVE METABOLIC [id number] 00:00:00 Test Item Value Reference Range Interpretation Comments GLUCOSE (test code = 2217) 144 MG/DL BUN (test code = 2208) 15 MG/DL CREATININE (test code = 2214) 0.85 MG/DL eGFR AMER. (test code 87 ML/MIN/1.73 = 32573) eGFR NON- AMER. (test 75 ML/MIN/1.73 code = 83368) CALC BUN/CREAT (test code = 18 RATIO [...] CALC GLOBULIN (test code = 2.5 G/DL 0) CALC A/G RATIO (test code [...] THYROX. BIND. CAPAC. (test code 1.1 = 37106) T4 (THYROXINE) (test code = 4.3 UG/DL 281) CORRECTED T4 (FTI) (test code = 3.9 UG/DL 2820) TSH, THIRD GENERATION (test 18.900 UIU/ML code = 2821) HEMOGLOBIN [id number] 00:00:00 Test Item Value Reference Range Interpretation Comments HEMOGLOBIN A1c (test code = 07693) 6.6 % HEMOGLOBIN [id number] 00:00:00 Test Item Value Reference Range Interpretation Comments HEMOGLOBIN A1c (test code = 78389) 6.6 % HEMOGLOBIN [id number] 00:00:00 Test Item Value Reference Range Interpretation Comments HEMOGLOBIN A1c (test code = 72633) 6.6 % LIPID [id number] 00:00:00 Test Item Value Reference Range Interpretation Comments CHOLESTEROL (test code = 2210) 261 MG/DL TRIGLYCERIDES (test code = 2232) 159 MG/DL HDL CHOLESTEROL (test code = 2220) 82 MG/DL CALC LDL CHOL (test code = 2237) 150 MG/DL RISK RATIO LDL/HDL (test code = 1.83 RATIO 2238) LIPID [id number] 00:00:00 Test Item Value Reference Range Interpretation Comments CHOLESTEROL (test code = 2210) 261 MG/DL TRIGLYCERIDES (test code = 2232) 159 MG/DL HDL CHOLESTEROL (test code = 2220) 82 MG/DL CALC LDL CHOL (test code = 2237) 150 MG/DL RISK RATIO LDL/HDL (test code = 1.83 RATIO 2238) COMPREHENSIVE METABOLIC [id number] 00:00:00 Test Item Value Reference Range Interpretation Comments GLUCOSE (test code = 2217) 144 MG/DL BUN (test code = 2208) 15 MG/DL CREATININE (test code = 2214) 0.85 MG/DL eGFR AMER. (test code 87 ML/MIN/1.73 = 10299) eGFR NON- AMER. (test 75 ML/MIN/1.73 code = 16468) CALC BUN/CREAT (test code = 18 RATIO 2235) SODIUM (test code = 2231) 133 MEQ/L POTASSIUM (test code = 2228) 4.5 MEQ/L CHLORIDE (test code = 2215) 93 MEQ/L CARBON DIOXIDE (test code = 28 MEQ/L 220) CALCIUM (test code = 2209) 9.7 MG/DL [...] code = 2219) 50 U/L COMPREHENSIVE METABOLIC [id number] 00:00:00 Test Item Value Reference Range Interpretation Comments GLUCOSE (test code = 2217) 144 MG/DL BUN (test code = 2208) 15 MG/DL CREATININE (test code = 2214) 0.85 MG/DL eGFR AMER. (test code 87 ML/MIN/1.73 = 59688) eGFR NON- AMER. (test 75 ML/MIN/1.73 code = 28754) CALC BUN/CREAT (test code = 18 RATIO [...] THYROX. BIND. CAPAC. (test code 1.1 = 17403) T4 (THYROXINE) (test code = 4.3 UG/DL 2819) CORRECTED T4 (FTI) (test code = 3.9 UG/DL 2820) TSH, THIRD GENERATION (test 18.900 UIU/ML code = 2821) THYROID II PROFILE (T3U, T4, T7, TSH)[id number] 00:00:00 Test Item Value Reference Range Interpretation Comments T-UPTAKE (test code = 7) 30.2 % THYROX. BIND. CAPAC. (test code 1.1 = 76847) T4 (THYROXINE) (test code = 4.3 UG/DL 2819) CORRECTED T4 (FTI) (test code = 3.9 UG/DL 2820) TSH, THIRD GENERATION (test 18.900 UIU/ML code = 2821) HEMOGLOBIN [id number] 00:00:00 Test Item Value Reference Range Interpretation Comments HEMOGLOBIN A1c (test code = 75289) 6.7 % HEMOGLOBIN [id number] 00:00:00 Test Item Value Reference Range Interpretation Comments HEMOGLOBIN A1c (test code = 89406) 6.7 % LIPID [id number] 00:00:00 Test Item Value Reference Range Interpretation Comments CHOLESTEROL (test code = 2210) 267 MG/DL TRIGLYCERIDES (test code = 2232) 137 MG/DL HDL CHOLESTEROL (test code = 2220) 48 MG/DL CALC LDL CHOL (test code = 2237) 192 MG/DL RISK RATIO LDL/HDL (test code = 4.00 RATIO 2238) COMPREHENSIVE METABOLIC [id number] 00:00:00 Test Item Value Reference Range Interpretation Comments GLUCOSE (test code = 2217) 155 MG/DL BUN (test code = 2208) 14 MG/DL CREATININE (test code = 2214) 0.52 MG/DL eGFR AMER. (test code 122 ML/MIN/1.73 = 23163) eGFR NON- AMER. (test 105 ML/MIN/1.73 code = 88358) CALC BUN/CREAT (test code = 27 RATIO [...] THYROX. BIND. CAPAC. (test code 1.0 = 26577) T4 (THYROXINE) (test code = 4.7 UG/DL 2819) CORRECTED T4 (FTI) (test code = 4.7 UG/DL 2820) TSH, THIRD GENERATION (test code 0.201 UIU/ML = 2821) HEMOGLOBIN [id number] 00:00:00 Test Item Value Reference Range Interpretation Comments HEMOGLOBIN A1c (test code = 64403) 6.7 % HEMOGLOBIN [id number] 00:00:00 Test Item Value Reference Range Interpretation Comments HEMOGLOBIN A1c (test code = 55815) 6.7 % HEMOGLOBIN [id number] 00:00:00 Test Item Value Reference Range Interpretation Comments HEMOGLOBIN A1c (test code = 26993) 6.7 % LIPID [id number] 00:00:00 Test Item Value Reference Range Interpretation Comments CHOLESTEROL (test code = 2210) 267 MG/DL TRIGLYCERIDES (test code = 2232) 137 MG/DL HDL CHOLESTEROL (test code = 2220) 48 MG/DL CALC LDL CHOL (test code = 2237) 192 MG/DL RISK RATIO LDL/HDL (test code = 4.00 RATIO 2238) LIPID [id number] 00:00:00 Test Item Value Reference Range Interpretation Comments CHOLESTEROL (test code = 2210) 267 MG/DL TRIGLYCERIDES (test code = 2232) 137 MG/DL HDL CHOLESTEROL (test code = 2220) 48 MG/DL CALC LDL CHOL (test code = 2237) 192 MG/DL RISK RATIO LDL/HDL (test code = 4.00 RATIO 2238) COMPREHENSIVE METABOLIC [id number] 00:00:00 Test Item Value Reference Range Interpretation Comments GLUCOSE (test code = 2217) 155 MG/DL BUN (test code = 2208) 14 MG/DL CREATININE (test code = 2214) 0.52 MG/DL eGFR AMER. (test code 122 ML/MIN/1.73 = 13452) eGFR NON- AMER. (test 105 ML/MIN/1.73 code = 28111) CALC BUN/CREAT (test code = 27 RATIO [...] A/G RATIO (test code = 1.7 RATIO 223) BILIRUBIN, TOTAL (test code = <0.2 MG/DL 2206) ALKALINE PHOSPHATASE (test 115 U/L code = 2204) AST (test code = 2218) 17 U/L ALT (test code = 2219) 27 U/L COMPREHENSIVE METABOLIC [id number] 00:00:00 Test Item Value Reference Range Interpretation Comments GLUCOSE (test code = 2217) 155 MG/DL BUN (test code = 2208) 14 MG/DL CREATININE (test code = 2214) 0.52 MG/DL eGFR AMER. (test code 122 ML/MIN/1.73 = 23759) eGFR NON- AMER. (test 105 ML/MIN/1.73 code = 93502) CALC BUN/CREAT (test code = 27 RATIO 2235) SODIUM (test code = 2231) 142 MEQ/L POTASSIUM (test code = 2228) 4.4 MEQ/L CHLORIDE (test code = 2215) 104 MEQ/L CARBON DIOXIDE (test code = 25 MEQ/L 2205) CALCIUM (test code = 2209) 9.2 MG/DL PROTEIN, TOTAL (test code = 7.1 G/DL 2228) ALBUMIN (test code = 220) 4.5 G/DL CALC GLOBULIN (test code = [...] Interpretation Comments T-UPTAKE (test code = 2816) 33.1 % THYROX. BIND. CAPAC. (test code 1.0 = 53343) T4 (THYROXINE) (test code = 4.7 UG/DL 2819) CORRECTED T4 (FTI) (test code = 4.7 UG/DL 2820) TSH, THIRD GENERATION (test code 0.201 UIU/ML = 2821) THYROID II PROFILE (T3U, T4, T7, TSH)2019 00:00:00 Test Item Value Reference Range Interpretation Comments T-UPTAKE (test code = 2816) 33.1 % THYROX. BIND. CAPAC. (test code 1.0 = 02183) T4 (THYROXINE) (test code = 4.7 UG/DL 2819) CORRECTED T4 (FTI) (test code = 4.7 UG/DL 2820) TSH, THIRD GENERATION (test code 0.201 UIU/ML = 2821) SARS-CoV-2 (COVID-19) by RT-PCR (HIGH RISK)2019-09-18 00:00:00 Test Item Value Reference Range Interpretation Comments SARS-CoV-2 INTERPRETATION (test NEGATIVE code = 69400) SOURCE (test code = 43792) NOT SPECIFIED SARS-CoV-2 (COVID-19) by RT-PCR (HIGH RISK)2019-09-18 00:00:00 Test Item Value Reference Range Interpretation Comments SARS-CoV-2 INTERPRETATION (test NEGATIVE code = 21858) SOURCE (test code = 71737) NOT SPECIFIED SARS-CoV-2 (COVID-19) by RT-PCR (HIGH RISK)2019-09-18 00:00:00 Test Item Value Reference Range Interpretation Comments SARS-CoV-2 INTERPRETATION (test NEGATIVE code = 82239) SOURCE (test code = 23087) NOT SPECIFIED [id number] 00:00:00 Test Item Value Reference Range Interpretation Comments TSH, THIRD GENERATION (test code 2.490 UIU/ML = 2821) [id number] 00:00:00 Test Item Value Reference Range Interpretation Comments TSH, THIRD GENERATION (test code 2.490 UIU/ML = 2821) HEMOGLOBIN [id number] 00:00:00 Test Item Value Reference Range Interpretation Comments HEMOGLOBIN A1c (test code = 93655) 6.4 % HEMOGLOBIN [id number] 00:00:00 Test Item Value Reference Range Interpretation Comments HEMOGLOBIN A1c (test code = 96847) 6.4 % COMPREHENSIVE METABOLIC [id number] 00:00:00 Test Item Value Reference Range Interpretation Comments GLUCOSE (test code = 2217) 206 MG/DL BUN (test code = 2208) 23 MG/DL CREATININE (test code = 2214) 0.67 MG/DL eGFR AMER. (test code 112 ML/MIN/1.73 = 09006) eGFR NON- AMER. (test 97 ML/MIN/1.73 code = 38060) CALC BUN/CREAT (test code = 34 RATIO [...] ALT (test code = 2219) 25 U/L [id number] 00:00:00 Test Item Value Reference Range Interpretation Comments TSH, THIRD GENERATION (test code 2.490 UIU/ML = 2821) [id number] 00:00:00 Test Item Value Reference Range Interpretation Comments TSH, THIRD GENERATION (test code 2.490 UIU/ML = 2821) [id number] 00:00:00 Test Item Value Reference Range Interpretation Comments TSH, THIRD GENERATION (test code 2.490 UIU/ML = 2821) HEMOGLOBIN [id number] 00:00:00 Test Item Value Reference Range Interpretation Comments HEMOGLOBIN A1c (test code = 86935) 6.4 % HEMOGLOBIN [id number] 00:00:00 Test Item Value Reference Range Interpretation Comments HEMOGLOBIN A1c (test code = 69979) 6.4 % HEMOGLOBIN [id number] 00:00:00 Test Item Value Reference Range Interpretation Comments HEMOGLOBIN A1c (test code = 51261) 6.4 % COMPREHENSIVE METABOLIC [id number] 00:00:00 Test Item Value Reference Range Interpretation Comments GLUCOSE (test code = 2217) 206 MG/DL BUN (test code = 2208) 23 MG/DL CREATININE (test code = 2214) 0.67 MG/DL eGFR AMER. (test code 112 ML/MIN/1.73 = 63439) eGFR NON- AMER. (test 97 ML/MIN/1.73 code = 27283) CALC BUN/CREAT (test code = 34 RATIO 2235) SODIUM (test code = 2231) 142 MEQ/L POTASSIUM (test code = 2228) 4.1 MEQ/L CHLORIDE (test code = 2215) 99 MEQ/L CARBON DIOXIDE (test code = 28 MEQ/L 2205) CALCIUM (test code = 2209) 8.8 MG/DL PROTEIN, TOTAL (test code = 6.8 G/DL 2229) ALBUMIN (test code = 2201) 4.6 G/DL CALC GLOBULIN (test code = 2.2 G/DL 2240) CALC A/G RATIO (test code = 2.1 RATIO 2234) BILIRUBIN, TOTAL (test code = <0.2 MG/DL 2207) ALKALINE PHOSPHATASE (test 105 U/L code = 2204) AST (test code = 2218) 17 U/L ALT (test code = 2219) 25 U/L COMPREHENSIVE METABOLIC [id number] 00:00:00 Test Item Value Reference Range Interpretation Comments GLUCOSE (test code = 2217) 206 MG/DL BUN (test code = 2208) 23 MG/DL CREATININE (test code = 2214) 0.67 MG/DL eGFR AMER. (test code 112 ML/MIN/1.73 = 83266) eGFR NON- AMER. (test 97 ML/MIN/1.73 code = 14974) CALC BUN/CREAT (test code = 34 RATIO 2235) SODIUM (test code = 2231) 142 MEQ/L POTASSIUM (test code = 2228) 4.1 MEQ/L CHLORIDE (test code = 2215) 99 MEQ/L CARBON DIOXIDE (test code = 28 MEQ/L 2206) CALCIUM (test code = 2209) 8.8 MG/DL PROTEIN, TOTAL (test code = 6.8 G/DL 2229) ALBUMIN (test code = 2201) 4.6 G/DL CALC GLOBULIN (test code = 2.2 G/DL 2240) CALC A/G RATIO (test code = 2.1 RATIO 2234) BILIRUBIN, TOTAL (test code = <0.2 MG/DL 2207) ALKALINE PHOSPHATASE (test 105 U/L code = 2204) AST (test code = 2218) 17 U/L ALT (test code = 2219) 25 U/L VAGINAL PATHOGENS DNA [id number] 00:00:00 Test Item Value Reference Range Interpretation Comments MARK SPECIES (test code = ) NEGATIVE G. VAGINALIS (test code = ) NEGATIVE T. VAGINALIS (test code = ) NEGATIVE VAGINAL PATHOGENS DNA [id number] 00:00:00 Test Item Value Reference Range Interpretation Comments MARK SPECIES (test code = ) NEGATIVE G. VAGINALIS (test code = 40152) NEGATIVE T. VAGINALIS (test code = 79373) NEGATIVE VAGINAL PATHOGENS DNA [id number] 00:00:00 Test Item Value Reference Range Interpretation Comments MARK SPECIES (test code = ) NEGATIVE G. VAGINALIS (test code = 13264) NEGATIVE T. VAGINALIS (test code = 61279) NEGATIVE HEMOGLOBIN A1c [ADDED]2018-12-01 00:00:00 Test Item Value Reference Range Interpretation Comments HEMOGLOBIN A1c (test code = 43712) 6.7 % HEMOGLOBIN A1c [ADDED]2018-12-01 00:00:00 Test Item Value Reference Range Interpretation Comments HEMOGLOBIN A1c (test code = 76145) 6.7 % COMPREHENSIVE METABOLIC PANEL [ADDED]2018-12-01 00:00:00 Test Item Value Reference Range Interpretation Comments GLUCOSE (test code = 2217) 136 MG/DL BUN (test code = 2208) 15 MG/DL CREATININE (test code = 2214) 0.64 MG/DL eGFR AMER. (test code 115 ML/MIN/1.73 = 04111) eGFR NON- AMER. (test 99 ML/MIN/1.73 code = 84388) CALC BUN/CREAT (test code = 23 RATIO [...] Interpretation Comments HEMOGLOBIN A1c (test code = 64675) 6.7 % HEMOGLOBIN A1c [ADDED]2018-12-01 00:00:00 Test Item Value Reference Range Interpretation Comments HEMOGLOBIN A1c (test code = 66377) 6.7 % HEMOGLOBIN A1c [ADDED]2018-12-01 00:00:00 Test Item Value Reference Range Interpretation Comments HEMOGLOBIN A1c (test code = 55698) 6.7 % COMPREHENSIVE METABOLIC PANEL [ADDED]2018-12-01 00:00:00 Test Item Value Reference Range Interpretation Comments GLUCOSE (test code = 2217) 136 MG/DL BUN (test code = 2208) 15 MG/DL CREATININE (test code = 2214) 0.64 MG/DL eGFR AMER. (test code 115 ML/MIN/1.73 = 01298) eGFR NON- AMER. (test 99 ML/MIN/1.73 code = 49812) CALC BUN/CREAT (test code = 23 RATIO 2235) SODIUM (test code = 2231) 142 MEQ/L POTASSIUM (test code = 2228) 4.7 MEQ/L CHLORIDE (test code = 2215) 97 MEQ/L CARBON DIOXIDE (test code = 30 MEQ/L 6) CALCIUM (test code = 2209) 10.1 MG/DL [...] eGFR AMER. (test code 115 ML/MIN/1.73 = 84762) eGFR NON- AMER. (test 99 ML/MIN/1.73 code = 12777) CALC BUN/CREAT (test code = 23 RATIO [...] code 1.280 UIU/ML = 2821) CBC W/AUTO [id number] 00:00:00 Test Item Value Reference Range Interpretation [...] code = 1015) 346 K/UL CBC W/AUTO [id number] 00:00:00 Test Item Value Reference Range Interpretation [...] (test code = 1015) 346 K/UL HEMOGLOBIN [id number] 00:00:00 Test Item Value Reference Range Interpretation Comments HEMOGLOBIN A1c (test code = 67555) 5.9 % HEMOGLOBIN [id number] 00:00:00 Test Item Value Reference Range Interpretation Comments HEMOGLOBIN A1c (test code = 66979) 5.9 % LIPID [id number] 00:00:00 Test Item Value Reference Range Interpretation Comments CHOLESTEROL (test code = 2210) 318 MG/DL TRIGLYCERIDES (test code = 2232) 263 MG/DL HDL CHOLESTEROL (test code = 2220) 51 MG/DL CALC LDL CHOL (test code = 2237) 214 MG/DL RISK RATIO LDL/HDL (test code = 4.20 RATIO 2238) COMPREHENSIVE METABOLIC [id number] 00:00:00 Test Item Value Reference Range Interpretation Comments GLUCOSE (test code = 2217) 113 MG/DL BUN (test code = 2208) 18 MG/DL CREATININE (test code = 2214) 0.70 MG/DL eGFR AMER. (test code 111 ML/MIN/1.73 = 77199) eGFR NON- AMER. (test 96 ML/MIN/1.73 code = 13159) CALC BUN/CREAT (test code = 26 RATIO [...] ALT (test code = 2219) 31 U/L [id number] 00:00:00 Test Item Value Reference Range Interpretation Comments TSH, THIRD GENERATION (test code 2.520 UIU/ML = 2821) [id number] 00:00:00 Test Item Value Reference Range Interpretation Comments TSH, THIRD GENERATION (test code 2.520 UIU/ML = 2821) CBC W/AUTO [id number] 00:00:00 Test Item Value Reference Range Interpretation [...] code = 1015) 346 K/UL CBC W/AUTO [id number] 00:00:00 Test Item Value Reference Range Interpretation [...] code = 1015) 346 K/UL CBC W/AUTO [id number] 00:00:00 Test Item Value Reference Range Interpretation [...] (test code = 1015) 346 K/UL HEMOGLOBIN [id number] 00:00:00 Test Item Value Reference Range Interpretation Comments HEMOGLOBIN A1c (test code = 56213) 5.9 % HEMOGLOBIN [id number] 00:00:00 Test Item Value Reference Range Interpretation Comments HEMOGLOBIN A1c (test code = 23326) 5.9 % HEMOGLOBIN [id number] 00:00:00 Test Item Value Reference Range Interpretation Comments HEMOGLOBIN A1c (test code = 02160) 5.9 % LIPID [id number] 00:00:00 Test Item Value Reference Range Interpretation Comments CHOLESTEROL (test code = 2210) 318 MG/DL TRIGLYCERIDES (test code = 2232) 263 MG/DL HDL CHOLESTEROL (test code = 2220) 51 MG/DL CALC LDL CHOL (test code = 2237) 214 MG/DL RISK RATIO LDL/HDL (test code = 4.20 RATIO 2238) LIPID [id number] 00:00:00 Test Item Value Reference Range Interpretation Comments CHOLESTEROL (test code = 2210) 318 MG/DL TRIGLYCERIDES (test code = 2232) 263 MG/DL HDL CHOLESTEROL (test code = 2220) 51 MG/DL CALC LDL CHOL (test code = 2237) 214 MG/DL RISK RATIO LDL/HDL (test code = 4.20 RATIO 2238) COMPREHENSIVE METABOLIC [id number] 00:00:00 Test Item Value Reference Range Interpretation Comments GLUCOSE (test code = 2217) 113 MG/DL BUN (test code = 2208) 18 MG/DL CREATININE (test code = 2214) 0.70 MG/DL eGFR AMER. (test code 111 ML/MIN/1.73 = 42621) eGFR NON- AMER. (test 96 ML/MIN/1.73 code = 14503) CALC BUN/CREAT (test code = 26 RATIO [...] code = 2219) 31 U/L COMPREHENSIVE METABOLIC [id number] 00:00:00 Test Item Value Reference Range Interpretation Comments GLUCOSE (test code = 2217) 113 MG/DL BUN (test code = 2208) 18 MG/DL CREATININE (test code = 2214) 0.70 MG/DL eGFR AMER. (test code 111 ML/MIN/1.73 = 39933) eGFR NON- AMER. (test 96 ML/MIN/1.73 code = 98317) CALC BUN/CREAT (test code = 26 RATIO [...] ALT (test code = 2219) 31 U/L [id number] 00:00:00 Test Item Value Reference Range Interpretation Comments TSH, THIRD GENERATION (test code 2.520 UIU/ML = 2821) [id number] 00:00:00 Test Item Value Reference Range Interpretation Comments TSH, THIRD GENERATION (test code 2.520 UIU/ML = 2821) [id number] 00:00:00 Test Item Value Reference Range Interpretation Comments TSH, THIRD GENERATION (test code 2.520 UIU/ML = 2821) CULTURE, [id number] 00:00:00 Test Item Value Reference Range Interpretation Comments CULTURE, URINE (test SPECIMEN NUMBER: code = 13354) [id number] CULTURE, [id number] 00:00:00 Test Item Value Reference Range Interpretation Comments CULTURE, URINE (test SPECIMEN NUMBER: code = 31561) [id number] CULTURE, [id number] 00:00:00 Test Item Value Reference Range Interpretation Comments CULTURE, URINE (test SPECIMEN NUMBER: code = 16329) [id number] CULTURE, [id number] 00:00:00 Test Item Value Reference Range Interpretation Comments CULTURE, URINE (test SPECIMEN NUMBER: code = 91255) [id number] CULTURE, [id number] 00:00:00 Test Item Value Reference Range Interpretation Comments CULTURE, URINE (test SPECIMEN NUMBER: code = 94810) [id number] CULTURE, [id number] 00:00:00 Test Item Value Reference Range Interpretation Comments CULTURE, URINE (test SPECIMEN NUMBER: code = 34901) [id number] BASIC METABOLIC [id number] 00:00:00 Test Item Value Reference Range Interpretation Comments GLUCOSE (test code = 2217) 135 MG/DL BUN (test code = 2208) 25 MG/DL CREATININE (test code = 2214) 0.76 MG/DL eGFR AMER. (test code 101 ML/MIN/1.73 = 96315) eGFR NON- AMER. (test 87 ML/MIN/1.73 code = 50662) SODIUM (test code = 2231) 139 MEQ/L POTASSIUM (test code = 2228) 4.7 MEQ/L CHLORIDE (test code = 2215) 99 MEQ/L CARBON DIOXIDE (test code = 26 MEQ/L 2206) CALCIUM (test code = 2209) 9.4 MG/DL LIPID [id number] 00:00:00 Test Item Value Reference Range Interpretation Comments CHOLESTEROL (test code = 2210) 262 MG/DL TRIGLYCERIDES (test code = 2232) 300 MG/DL HDL CHOLESTEROL (test code = 2220) 36 MG/DL CALC LDL CHOL (test code = 2237) 166 MG/DL RISK RATIO LDL/HDL (test code = 4.61 RATIO 2238) HEMOGLOBIN [id number] 00:00:00 Test Item Value Reference Range Interpretation Comments HEMOGLOBIN A1c (test code = 52490) 6.2 % HEMOGLOBIN [id number] 00:00:00 Test Item Value Reference Range Interpretation Comments HEMOGLOBIN A1c (test code = 08123) 6.2 % [id number] 00:00:00 Test Item Value Reference Range Interpretation Comments TSH, THIRD GENERATION (test code 0.988 UIU/ML = 2821) [id number] 00:00:00 Test Item Value Reference Range Interpretation Comments TSH, THIRD GENERATION (test code 0.988 UIU/ML = 2821) BASIC METABOLIC [id number] 00:00:00 Test Item Value Reference Range Interpretation Comments GLUCOSE (test code = 2217) 135 MG/DL BUN (test code = 2208) 25 MG/DL CREATININE (test code = 2214) 0.76 MG/DL eGFR AMER. (test code 101 ML/MIN/1.73 = 37144) eGFR NON- AMER. (test 87 ML/MIN/1.73 code = 63833) SODIUM (test code = 2231) 139 MEQ/L POTASSIUM (test code = 2228) 4.7 MEQ/L CHLORIDE (test code = 2215) 99 MEQ/L CARBON DIOXIDE (test code = 26 MEQ/L 2206) CALCIUM (test code = 2209) 9.4 MG/DL BASIC METABOLIC [id number] 00:00:00 Test Item Value Reference Range Interpretation Comments GLUCOSE (test code = 2217) 135 MG/DL BUN (test code = 2208) 25 MG/DL CREATININE (test code = 2214) 0.76 MG/DL eGFR AMER. (test code 101 ML/MIN/1.73 = 19065) eGFR NON- AMER. (test 87 ML/MIN/1.73 code = 38651) SODIUM (test code = 2231) 139 MEQ/L POTASSIUM (test code = 2228) 4.7 MEQ/L CHLORIDE (test code = 2215) 99 MEQ/L CARBON DIOXIDE (test code = 26 MEQ/L 2206) CALCIUM (test code = 2209) 9.4 MG/DL LIPID [id number] 00:00:00 Test Item Value Reference Range Interpretation Comments CHOLESTEROL (test code = 2210) 262 MG/DL TRIGLYCERIDES (test code = 2232) 300 MG/DL HDL CHOLESTEROL (test code = 2220) 36 MG/DL CALC LDL CHOL (test code = 2237) 166 MG/DL RISK RATIO LDL/HDL (test code = 4.61 RATIO 2238) LIPID [id number] 00:00:00 Test Item Value Reference Range Interpretation Comments CHOLESTEROL (test code = 2210) 262 MG/DL TRIGLYCERIDES (test code = 2232) 300 MG/DL HDL CHOLESTEROL (test code = 2220) 36 MG/DL CALC LDL CHOL (test code = 2237) 166 MG/DL RISK RATIO LDL/HDL (test code = 4.61 RATIO 2238) HEMOGLOBIN [id number] 00:00:00 Test Item Value Reference Range Interpretation Comments HEMOGLOBIN A1c (test code = 64065) 6.2 % HEMOGLOBIN [id number] 00:00:00 Test Item Value Reference Range Interpretation Comments HEMOGLOBIN A1c (test code = 44142) 6.2 % HEMOGLOBIN [id number] 00:00:00 Test Item Value Reference Range Interpretation Comments HEMOGLOBIN A1c (test code = 77402) 6.2 % [id number] 00:00:00 Test Item Value Reference Range Interpretation Comments TSH, THIRD GENERATION (test code 0.988 UIU/ML = 2821) [id number] 00:00:00 Test Item Value Reference Range Interpretation Comments TSH, THIRD GENERATION (test code 0.988 UIU/ML = 2821) [id number] 00:00:00 Test Item Value Reference Range Interpretation Comments TSH, THIRD GENERATION (test code 0.988 UIU/ML = 2821) COMPREHENSIVE METABOLIC [id number] 00:00:00 Test Item Value Reference Range Interpretation Comments GLUCOSE (test code = 2217) 109 MG/DL BUN (test code = 2208) 25 MG/DL CREATININE (test code = 2214) 0.78 MG/DL eGFR AMER. (test code 98 ML/MIN/1.73 = 67770) eGFR NON- AMER. (test 84 ML/MIN/1.73 code = 22869) CALC BUN/CREAT (test code = 32 RATIO [...] (test code = 2219) 25 U/L LIPID [id number] 00:00:00 Test Item Value Reference Range Interpretation Comments CHOLESTEROL (test code = 2210) 295 MG/DL TRIGLYCERIDES (test code = 2232) 218 MG/DL HDL CHOLESTEROL (test code = 2220) 46 MG/DL CALC LDL CHOL (test code = 2237) 205 MG/DL RISK RATIO LDL/HDL (test code = 4.47 RATIO 2238) HEMOGLOBIN [id number] 00:00:00 Test Item Value Reference Range Interpretation Comments HEMOGLOBIN A1c (test code = 39222) 7.0 % HEMOGLOBIN [id number] 00:00:00 Test Item Value Reference Range Interpretation Comments HEMOGLOBIN A1c (test code = 55030) 7.0 % [id number] 00:00:00 Test Item Value Reference Range Interpretation Comments TSH, THIRD GENERATION (test code 0.565 UIU/ML = 2821) [id number] 00:00:00 Test Item Value Reference Range Interpretation Comments TSH, THIRD GENERATION (test code 0.565 UIU/ML = 2821) COMPREHENSIVE METABOLIC [id number] 00:00:00 Test Item Value Reference Range Interpretation Comments GLUCOSE (test code = 2217) 109 MG/DL BUN (test code = 2208) 25 MG/DL CREATININE (test code = 2214) 0.78 MG/DL eGFR AMER. (test code 98 ML/MIN/1.73 = 10681) eGFR NON- AMER. (test 84 ML/MIN/1.73 code = 55158) CALC BUN/CREAT (test code = 32 RATIO [...] code = 2219) 25 U/L COMPREHENSIVE METABOLIC [id number] 00:00:00 Test Item Value Reference Range Interpretation Comments GLUCOSE (test code = 2217) 109 MG/DL BUN (test code = 2208) 25 MG/DL CREATININE (test code = 2214) 0.78 MG/DL eGFR AMER. (test code 98 ML/MIN/1.73 = 94675) eGFR NON- AMER. (test 84 ML/MIN/1.73 code = 29611) CALC BUN/CREAT (test code = 32 RATIO [...] (test code = 2219) 25 U/L LIPID [id number] 00:00:00 Test Item Value Reference Range Interpretation Comments CHOLESTEROL (test code = 2210) 295 MG/DL TRIGLYCERIDES (test code = 2232) 218 MG/DL HDL CHOLESTEROL (test code = 2220) 46 MG/DL CALC LDL CHOL (test code = 2237) 205 MG/DL RISK RATIO LDL/HDL (test code = 4.47 RATIO 2238) LIPID [id number] 00:00:00 Test Item Value Reference Range Interpretation Comments CHOLESTEROL (test code = 2210) 295 MG/DL TRIGLYCERIDES (test code = 2232) 218 MG/DL HDL CHOLESTEROL (test code = 2220) 46 MG/DL CALC LDL CHOL (test code = 2237) 205 MG/DL RISK RATIO LDL/HDL (test code = 4.47 RATIO 2238) HEMOGLOBIN [id number] 00:00:00 Test Item Value Reference Range Interpretation Comments HEMOGLOBIN A1c (test code = 17639) 7.0 % HEMOGLOBIN [id number] 00:00:00 Test Item Value Reference Range Interpretation Comments HEMOGLOBIN A1c (test code = 77933) 7.0 % HEMOGLOBIN [id number] 00:00:00 Test Item Value Reference Range Interpretation Comments HEMOGLOBIN A1c (test code = 78772) 7.0 % [id number] 00:00:00 Test Item Value Reference Range Interpretation Comments TSH, THIRD GENERATION (test code 0.565 UIU/ML = 2821) [id number] 00:00:00 Test Item Value Reference Range Interpretation Comments TSH, THIRD GENERATION (test code 0.565 UIU/ML = 2821) [id number] 00:00:00 Test Item Value Reference Range Interpretation Comments TSH, THIRD GENERATION (test code 0.565 UIU/ML = 2821) [id number] 00:00:00 Test Item Value Reference Range Interpretation Comments TSH, THIRD GENERATION (test code 0.379 UIU/ML = 2821) [id number] 00:00:00 Test Item Value Reference Range Interpretation Comments TSH, THIRD GENERATION (test code 0.379 UIU/ML = 2821) [id number] 00:00:00 Test Item Value Reference Range Interpretation Comments TSH, THIRD GENERATION (test code 0.379 UIU/ML = 2821) [id number] 00:00:00 Test Item Value Reference Range Interpretation Comments TSH, THIRD GENERATION (test code 0.379 UIU/ML = 2821) [id number] 00:00:00 Test Item Value Reference Range Interpretation Comments TSH, THIRD GENERATION (test code 0.379 UIU/ML = 2821) CULTURE, [id number] 00:00:00 Test Item Value Reference Range Interpretation Comments CULTURE, URINE (test SPECIMEN NUMBER: code = 43758) [id number] CULTURE, [id number] 00:00:00 Test Item Value Reference Range Interpretation Comments CULTURE, URINE (test SPECIMEN NUMBER: code = 17413) [id number] CULTURE, [id number] 00:00:00 Test Item Value Reference Range Interpretation Comments CULTURE, URINE (test SPECIMEN NUMBER: code = 06366) [id number] COMPREHENSIVE METABOLIC [id number] 00:00:00 Test Item Value Reference Range Interpretation Comments GLUCOSE (test code = 2217) 128 MG/DL BUN (test code = 2208) 26 MG/DL CREATININE (test code = 2214) 0.92 MG/DL eGFR AMER. (test code 81 ML/MIN/1.73 = 56022) eGFR NON- AMER. (test 70 ML/MIN/1.73 code = 57340) CALC BUN/CREAT (test code = 28 RATIO [...] A/G RATIO (test code = 1.8 RATIO 4) BILIRUBIN, TOTAL (test code = <0.2 MG/DL 2206) ALKALINE PHOSPHATASE (test 104 U/L code = 2204) AST (test code = 2218) 24 U/L ALT (test code = 2219) 29 U/L ACUTE HEPATITIS [id number] 00:00:00 Test Item Value Reference Range Interpretation Comments HEPATITIS A IgM (test code = NON-REACTIVE 67291) HEPATITIS B CORE IgM (test code NON-REACTIVE = 3444) HEPATITIS B SURF AG (test code = NON-REACTIVE 9887) HEPATITIS C ANTIBODY (test code NON-REACTIVE = 2508) INTERPRETATION HEPATITIS A: (NOTE) (test code = 2552) INTERPRETATION HEPATITIS B: (NOTE) (test code = 16590) INTERPRETATION HEPATITIS C: (NOTE) (test code = 16051) [id number] 00:00:00 Test Item Value Reference Range Interpretation Comments AMYLASE (test code = 2205) 32 U/L [id number] 00:00:00 Test Item Value Reference Range Interpretation Comments LIPASE (test code = 2057) 22 U/L [id number] 00:00:00 Test Item Value Reference Range Interpretation Comments LIPASE (test code = 2057) 22 U/L COMPREHENSIVE METABOLIC [id number] 00:00:00 Test Item Value Reference Range Interpretation Comments GLUCOSE (test code = 2217) 128 MG/DL BUN (test code = 2208) 26 MG/DL CREATININE (test code = 2214) 0.92 MG/DL eGFR AMER. (test code 81 ML/MIN/1.73 = 58104) eGFR NON- AMER. (test 70 ML/MIN/1.73 code = 21292) CALC BUN/CREAT (test code = 28 RATIO [...] code = 2219) 29 U/L COMPREHENSIVE METABOLIC [id number] 00:00:00 Test Item Value Reference Range Interpretation Comments GLUCOSE (test code = 2217) 128 MG/DL BUN (test code = 2208) 26 MG/DL CREATININE (test code = 2214) 0.92 MG/DL eGFR AMER. (test code 81 ML/MIN/1.73 = 31950) eGFR NON- AMER. (test 70 ML/MIN/1.73 code = 38424) CALC BUN/CREAT (test code = 28 RATIO [...] code = 2219) 29 U/L ACUTE HEPATITIS [id number] 00:00:00 Test Item Value Reference Range Interpretation Comments HEPATITIS A IgM (test code = NON-REACTIVE 65728) HEPATITIS B CORE IgM (test code NON-REACTIVE = 4644) HEPATITIS B SURF AG (test code = NON-REACTIVE 2739) HEPATITIS C ANTIBODY (test code NON-REACTIVE = 4675) INTERPRETATION HEPATITIS A: (NOTE) (test code = 2552) INTERPRETATION HEPATITIS B: (NOTE) (test code = 40161) INTERPRETATION HEPATITIS C: (NOTE) (test code = 04770) ACUTE HEPATITIS [id number] 00:00:00 Test Item Value Reference Range Interpretation Comments HEPATITIS A IgM (test code = NON-REACTIVE 63650) HEPATITIS B CORE IgM (test code NON-REACTIVE = 4644) HEPATITIS B SURF AG (test code = NON-REACTIVE 2739) HEPATITIS C ANTIBODY (test code NON-REACTIVE = 4675) INTERPRETATION HEPATITIS A: (NOTE) (test code = 2552) INTERPRETATION HEPATITIS B: (NOTE) (test code = 28903) INTERPRETATION HEPATITIS C: (NOTE) (test code = 17806) [id number] 00:00:00 Test Item Value Reference Range Interpretation Comments AMYLASE (test code = 2205) 32 U/L [id number] 00:00:00 Test Item Value Reference Range Interpretation Comments AMYLASE (test code = 2205) 32 U/L [id number] 00:00:00 Test Item Value Reference Range Interpretation Comments LIPASE (test code = 2058) 22 U/L [id number] 00:00:00 Test Item Value Reference Range Interpretation Comments LIPASE (test code = 2058) 22 U/L [id number] 00:00:00 Test Item Value Reference Range Interpretation Comments LIPASE (test code = 205) 22 U/L [id number] 00:00:00 Test Item Value Reference Range Interpretation Comments TSH, THIRD GENERATION (test code 4.890 UIU/ML = 2821) [id number] 00:00:00 Test Item Value Reference Range Interpretation Comments TSH, THIRD GENERATION (test code 4.890 UIU/ML = 2821) COMPREHENSIVE METABOLIC [id number] 00:00:00 Test Item Value Reference Range Interpretation Comments GLUCOSE (test code = 2217) 121 MG/DL BUN (test code = 2208) 40 MG/DL CREATININE (test code = 2214) 1.48 MG/DL eGFR AMER. (test code 45 ML/MIN/1.73 = 92130) eGFR NON- AMER. (test 39 ML/MIN/1.73 code = 51720) CALC BUN/CREAT (test code = 27 RATIO [...] ALT (test code = 2219) 20 U/L [id number] 00:00:00 Test Item Value Reference Range Interpretation Comments TSH, THIRD GENERATION (test code 4.890 UIU/ML = 2821) [id number] 00:00:00 Test Item Value Reference Range Interpretation Comments TSH, THIRD GENERATION (test code 4.890 UIU/ML = 2821) [id number] 00:00:00 Test Item Value Reference Range Interpretation Comments TSH, THIRD GENERATION (test code 4.890 UIU/ML = 2821) COMPREHENSIVE METABOLIC [id number] 00:00:00 Test Item Value Reference Range Interpretation Comments GLUCOSE (test code = 2217) 121 MG/DL BUN (test code = 2208) 40 MG/DL CREATININE (test code = 2214) 1.48 MG/DL eGFR AMER. (test code 45 ML/MIN/1.73 = 21667) eGFR NON- AMER. (test 39 ML/MIN/1.73 code = 76622) CALC BUN/CREAT (test code = 27 RATIO [...] code = 2219) 20 U/L COMPREHENSIVE METABOLIC [id number] 00:00:00 Test Item Value Reference Range Interpretation Comments GLUCOSE (test code = 2217) 121 MG/DL BUN (test code = 2208) 40 MG/DL CREATININE (test code = 2214) 1.48 MG/DL eGFR AMER. (test code 45 ML/MIN/1.73 = 65657) eGFR NON- AMER. (test 39 ML/MIN/1.73 code = 22441) CALC BUN/CREAT (test code = 27 RATIO [...] (test code = 2219) 20 U/L LIPID [id number] 00:00:00 Test Item Value Reference Range Interpretation Comments CHOLESTEROL (test code = 2210) 261 MG/DL TRIGLYCERIDES (test code = 2232) 165 MG/DL HDL CHOLESTEROL (test code = 2220) 58 MG/DL CALC LDL CHOL (test code = 2237) 170 MG/DL RISK RATIO LDL/HDL (test code = 2.93 RATIO 2238) CBC W/AUTO [id number] 00:00:00 Test Item Value Reference Range Interpretation [...] code = 1015) 378 K/UL CBC W/AUTO [id number] 00:00:00 Test Item Value Reference Range Interpretation [...] (test code = 1015) 378 K/UL HEMOGLOBIN [id number] 00:00:00 Test Item Value Reference Range Interpretation Comments HEMOGLOBIN A1c (test code = 81497) 6.4 % HEMOGLOBIN [id number] 00:00:00 Test Item Value Reference Range Interpretation Comments HEMOGLOBIN A1c (test code = 37729) 6.4 % [id number] 00:00:00 Test Item Value Reference Range Interpretation Comments TSH (test code = 2821) 5.290 UIU/ML [id number] 00:00:00 Test Item Value Reference Range Interpretation Comments TSH (test code = 2821) 5.290 UIU/ML LIPID [id number] 00:00:00 Test Item Value Reference Range Interpretation Comments CHOLESTEROL (test code = 2210) 261 MG/DL TRIGLYCERIDES (test code = 2232) 165 MG/DL HDL CHOLESTEROL (test code = 2220) 58 MG/DL CALC LDL CHOL (test code = 2237) 170 MG/DL RISK RATIO LDL/HDL (test code = 2.93 RATIO 2238) LIPID [id number] 00:00:00 Test Item Value Reference Range Interpretation Comments CHOLESTEROL (test code = 2210) 261 MG/DL TRIGLYCERIDES (test code = 2232) 165 MG/DL HDL CHOLESTEROL (test code = 2220) 58 MG/DL CALC LDL CHOL (test code = 2237) 170 MG/DL RISK RATIO LDL/HDL (test code = 2.93 RATIO 2238) CBC W/AUTO [id number] 00:00:00 Test Item Value Reference Range Interpretation [...] code = 1015) 378 K/UL CBC W/AUTO [id number] 00:00:00 Test Item Value Reference Range Interpretation [...] code = 1015) 378 K/UL CBC W/AUTO [id number] 00:00:00 Test Item Value Reference Range Interpretation [...] (test code = 1015) 378 K/UL HEMOGLOBIN [id number] 00:00:00 Test Item Value Reference Range Interpretation Comments HEMOGLOBIN A1c (test code = 82611) 6.4 % HEMOGLOBIN [id number] 00:00:00 Test Item Value Reference Range Interpretation Comments HEMOGLOBIN A1c (test code = 80677) 6.4 % HEMOGLOBIN [id number] 00:00:00 Test Item Value Reference Range Interpretation Comments HEMOGLOBIN A1c (test code = 11956) 6.4 % [id number] 00:00:00 Test Item Value Reference Range Interpretation Comments TSH (test code = 2821) 5.290 UIU/ML [id number] 00:00:00 Test Item Value Reference Range Interpretation Comments TSH (test code = 2821) 5.290 UIU/ML [id number] 00:00:00 Test Item Value Reference Range Interpretation [...] code = 2821) 1.030 UIU/ML COMPREHENSIVE METABOLIC [id number] 00:00:00 Test Item Value Reference Range Interpretation Comments GLUCOSE (test code = 2217) 106 MG/DL BUN (test code = 2208) 23 MG/DL CREATININE (test code = 2214) 0.66 MG/DL eGFR AMER. (test code 114 ML/MIN/1.73 = 39856) eGFR NON- AMER. (test 99 ML/MIN/1.73 code = 23369) CALC BUN/CREAT (test code = 35 RATIO [...] ALKALINE PHOSPHATASE (test 101 U/L code = 220) AST (test code = 2218) 21 U/L ALT (test code = 2219) 31 U/L THYROID II PROFILE (T3U, T4, T7, TSH)[id number] 00:00:00 Test Item Value Reference Range Interpretation Comments T3 UPTAKE (test code = 2817) 31.6 % T4 (THYROXINE) (test code = 5.4 UG/DL 2818) CALCULATED T7 (FTI) (test code = 1.71 2820) TSH (test code = 2821) 0.335 UIU/ML COMPREHENSIVE METABOLIC [id number] 00:00:00 Test Item Value Reference Range Interpretation Comments GLUCOSE (test code = 2217) 106 MG/DL BUN (test code = 2208) 23 MG/DL CREATININE (test code = 2214) 0.66 MG/DL eGFR AMER. (test code 114 ML/MIN/1.73 = 06561) eGFR NON- AMER. (test 99 ML/MIN/1.73 code = 56209) CALC BUN/CREAT (test code = 35 RATIO [...] code = 2219) 31 U/L COMPREHENSIVE METABOLIC [id number] 00:00:00 Test Item Value Reference Range Interpretation Comments GLUCOSE (test code = 2217) 106 MG/DL BUN (test code = 2208) 23 MG/DL CREATININE (test code = 2214) 0.66 MG/DL eGFR AMER. (test code 114 ML/MIN/1.73 = 97292) eGFR NON- AMER. (test 99 ML/MIN/1.73 code = 51432) CALC BUN/CREAT (test code = 35 RATIO [...] CALCULATED T7 (FTI) (test code = 1.71 0920) TSH (test code = 2821) 0.335 UIU/ML THYROID II PROFILE (T3U, T4, T7, TSH)2017-02-26 00:00:00 Test Item Value Reference Range Interpretation Comments T3 UPTAKE (test code = 2817) 31.6 % T4 (THYROXINE) (test code = 5.4 UG/DL 281) CALCULATED T7 (FTI) (test code = 1.71 2820) TSH (test code = 2821) 0.335 UIU/ML COMPREHENSIVE METABOLIC [id number] 00:00:00 Test Item Value Reference Range Interpretation Comments GLUCOSE (test code = 2217) 103 MG/DL BUN (test code = 2208) 15 MG/DL CREATININE (test code = 2214) 0.77 MG/DL eGFR AMER. (test code 101 ML/MIN/1.73 = 45330) eGFR NON- AMER. (test 87 ML/MIN/1.73 code = 87469) CALC BUN/CREAT (test code = 19 RATIO [...] code = 2821) 0.424 UIU/ML COMPREHENSIVE METABOLIC [id number] 00:00:00 Test Item Value Reference Range Interpretation Comments GLUCOSE (test code = 2217) 103 MG/DL BUN (test code = 2208) 15 MG/DL CREATININE (test code = 2214) 0.77 MG/DL eGFR AMER. (test code 101 ML/MIN/1.73 = 09910) eGFR NON- AMER. (test 87 ML/MIN/1.73 code = 77146) CALC BUN/CREAT (test code = 19 RATIO [...] code = 2219) 24 U/L COMPREHENSIVE METABOLIC [id number] 00:00:00 Test Item Value Reference Range Interpretation Comments GLUCOSE (test code = 2217) 103 MG/DL BUN (test code = 2208) 15 MG/DL CREATININE (test code = 2214) 0.77 MG/DL eGFR AMER. (test code 101 ML/MIN/1.73 = 30021) eGFR NON- AMER. (test 87 ML/MIN/1.73 code = 38376) CALC BUN/CREAT (test code = 19 RATIO [...] (test code = 2821) 0.424 UIU/ML CULTURE, [id number] 00:00:00 Test Item Value Reference Range Interpretation Comments CULTURE, URINE (test SPECIMEN NUMBER: code = 61265) [id number] CULTURE, [id number] 00:00:00 Test Item Value Reference Range Interpretation Comments CULTURE, URINE (test SPECIMEN NUMBER: code = 87220) [id number] CULTURE, [id number] 00:00:00 Test Item Value Reference Range Interpretation Comments CULTURE, URINE (test SPECIMEN NUMBER: code = 86198) [id number] CULTURE, [id number] 00:00:00 Test Item Value Reference Range Interpretation Comments CULTURE, URINE (test SPECIMEN NUMBER: code = 04896) [id number] CULTURE, [id number] 00:00:00 Test Item Value Reference Range Interpretation Comments CULTURE, URINE (test SPECIMEN NUMBER: code = 12259) [id number] CULTURE, [id number] 00:00:00 Test Item Value Reference Range Interpretation Comments CULTURE, URINE (test SPECIMEN NUMBER: code = 65844) [id number]
[2021-12-28] MEDS ORDERED: NA CHLORIDE 0.9% 1,000 ML ONE (20:54)
[2021-12-28] MEDS ORDERED: NA CHLORIDE 0.9% 250 ML ONE (20:54)
[2021-12-28 21:57] LABS: Absolute Lymphocytes (CBC) 2.8 K/uL (0.7-4.9); Lymphocytes % 28.1 % (15.3-44.8); MCV 90.7 fL (80-100); MPV 6.5 fL (7.6-11.3); Protime INR 0.93; RBC Red Blood Cell Count 3.53 M/uL (3.86-4.86)
[2021-12-28 22:07] LABS: Urine Blood Trace-intact (Negative); Urine Glucose Negative (Negative); Urine Protein Negative (Negative); Urine pH 5.5 (5.0-7.0)
[2021-12-28 22:13] LABS: Albumin 3.2 g/dL (3.4-5.0); Bilirubin Total 0.2 mg/dL (0.2-1.0); Potassium 3.4 mmol/L (3.5-5.1); Protein, Total 6.6 g/dL (6.4-8.2)
[2021-12-28] MEDS ORDERED: ONDANSETRON 4 MG/2 ML VIAL ONE (22:22)
--- NOTE | 2021-12-28 22:24 | RAD REPORT ---
EXAM DESCRIPTION: CT - Head Brain Wo Cont - 12/28/2021 10:19 pm CLINICAL HISTORY: Alteration of awareness/confusion COMPARISON: September 2021 TECHNIQUE: Computed axial tomography of the head was obtained. IV contrast was not requested. All CT scans are performed using dose optimization technique as appropriate and may include automated exposure control or mA/KV adjustment according to patient size. FINDINGS: An intracranial bleed is not seen . The ventricles are normal in caliber. No extra-axial fluid collection is noted. No significant hypodensity within the brain. Fluid within the sinuses/ mastoids is not seen. IMPRESSION: No acute intracranial abnormality is seen. If patient's symptoms persist MRI of the bra in would be recommended.
[2021-12-28 22:29] LABS: Barbiturates NEGATIVE (NEGATIVE); Benzodiazepines NEGATIVE (NEGATIVE); Cocaine NEGATIVE (NEGATIVE); METHAMPHETAM NEGATIVE (NEGATIVE); Methadone NEGATIVE (NEGATIVE); Opiates NEGATIVE (NEGATIVE); Phencyclidine NEGATIVE (NEGATIVE); THC Cannibis NEGATIVE (NEGATIVE)
[2021-12-28] MEDS ORDERED: POTASSIUM 25 MEQ EFFERV TAB ONE (22:32)
--- NOTE | 2021-12-28 22:32 | RAD REPORT ---
EXAM DESCRIPTION: CT - Chest Abd Pelvis Wo Con - 12/28/2021 10:20 pm CLINICAL HISTORY: Chest and abdominal pain COMPARISON: November 2021 TECHNIQUE: Computed axial tomography of the chest, abdomen and pelvis was obtained. Oral contrast wa s given. IV contrast was not requested. All CT scans are performed using dose optimization technique as appropriate and may include automated exposure control or mA/KV adjustment according to patient size. FINDINGS: The evaluation of mediastinum, ladi, vessels and solid organs is limited secondary to the lack of IV contrast administration The lungs are clear. Old rib fractures No mediastinal or hilar lymphadenopathy is seen. A pleural effusion is not present. A pericardial effusion is not seen. Small low-density hepatic lesions probably cysts. Spleen, pancreas, adrenals and kidneys appear grossly normal There is no evidence of diverticulitis. Normal appendix No adnexal mass Moderate amount of stool within the colon IMPRESSION: No acute abnormality involving the chest, abdomen or pelvis seen
[2021-12-28 22:35] LABS: BUN Blood Urea Nitrogen 11 mg/dL (7-18); Bicarbonate 28 mmol/L (21-32); Glomerular Filtration Rate 102 ml/min (=/>90); Glucose Level 102 mg/dL (74-106); Magnesium 1.7 mg/dL (1.8-2.4); NT PRO-BNP 501 pg/mL (<125); Potassium 3.3 mmol/L (3.5-5.1); Sodium Level 132 mmol/L (136-145); Troponin High Sensitivity 34.4 pg/mL (<58.9)
--- NOTE | 2021-12-28 22:37 | ER ---
Nurse's Notes [facility] Name: Jaimie Amanda Age: 61 yrs Sex: Female : 1960 Arrival Date: 12/28/2021 Time: 20:28 Bed 17 Private MD: Diagnosis: Altered mental status, unspecified;Weakness;Headache;Abdominal pain, Generalized Presentation: 12/28 20:40 Chief complaint: EMS states: altered mental status, was here in ED earlier today for eh3 hyponatremia. Coronavirus screen: Vaccine status: Patient reports receiving the 2nd dose of the covid vaccine. Ebola Screen: No symptoms or risks identified at this time. Initial Sepsis Screen: Does the patient meet any 2 criteria? No. Patient's initial sepsis screen is negative. Does the patient have a suspected source of infection? No. Patient's initial sepsis screen is negative. Risk Assessment: Do you want to hurt yourself or someone else? Patient reports no desire to harm self or others. Onset of symptoms was December 28, 2021. 20:40 Method Of Arrival: EMS: [facility] 20:40 Acuity: ZHEN 3 eh3 Triage Assessment: 20:41 General: Appears in no apparent distress. uncomfortable, Behavior is cooperative, flat, eh3 listless. Pain: Unable to use pain scale. Patient is disoriented. EENT: Eyes are tearing on outer aspect of conjuctiva of right eye, iris of right eye, inner aspect of conjuctiva of right eye, outer aspect of conjuctiva of left eye, iris of left eye and inner aspect of conjunctiva of left eye. Neuro: Level of Consciousness is awake, obeys commands, confused, Oriented to person, situation. Cardiovascular: Capillary refill < 3 seconds Patient's skin is warm and dry. Respiratory: Airway is patent Respiratory effort is even, unlabored. GI: No signs and/or symptoms were reported involving the gastrointestinal system. : No signs and/or symptoms were reported regarding the genitourinary system. Derm: No signs and/or symptoms reported regarding the dermatologic system. Musculoskeletal: Range of motion: intact in all extremities. Historical: - PMHx: 20:41 Anxiety; Hypertensive disorder; Hypothyroidism; low NA; Alcoholism; eh3 - PSHx: 20:41 Thyroidectomy; eh3 - Immunization history:: Adult Immunizations unknown. - Social history:: Smoking status: unknown. Screenin:44 Abuse screen: Denies threats or abuse. Denies injuries from another. Nutritional eh3 screening: No deficits noted. Tuberculosis screening: No symptoms or risk factors identified. Fall Risk None identified. Assessment: 20:44 Reassessment: No changes from previously documented assessment. See triage assessment. eh3 21:45 Reassessment: Patient and/or family updated on plan of care and expected duration. Pain eh3 level reassessed. Patient is alert, oriented x 3, equal unlabored respirations, skin warm/dry/pink. 22:32 General: Appears in no apparent distress. comfortable, unkempt, Behavior is eh3 cooperative, fussy. General: Appears Behavior is. Pain: Complains of pain in right upper quadrant. Neuro: Jorgensen Agitation-Sedation Scale (RASS): 0 - Alert and Calm Level of Consciousness is awake, obeys commands, Oriented to person, place, situation, Speech is slurred. Cardiovascular: No deficits noted. Denies chest pain, shortness of breath, Capillary refill < 3 seconds Clubbing of nail beds is absent JVD is absent Patient's skin is warm and dry. Respiratory: Airway is patent Trachea midline Respiratory effort is even, unlabored, Respiratory pattern is regular, symmetrical. GI: Abdomen is round non-distended, Bowel sounds present X 4 quads. Abd is soft X 4 quads Abdomen is tender to palpation X 4 quads. Reports lower abdominal pain, upper abdominal pain, cramping, nausea, vomiting. : No deficits noted. No signs and/or symptoms were reported regarding the genitourinary system. EENT: No deficits noted. No signs and/or symptoms were reported regarding the EENT system. Derm: No deficits noted. No signs and/or symptoms reported regarding the dermatologic system. Skin is intact, is healthy with good turgor, Skin is dry, Skin is normal, Skin temperature is warm. Musculoskeletal: Circulation, motion, and sensation intact. Range of motion: intact in all extremities. 23:45 General: pt uncooperative and requesting to go home at this time. pt currently having lg3 intermittent episodes of confusion. provider notified. 12/29 01:20 Reassessment: Patient appears in no apparent distress at this time. No changes from lg3 previously documented assessment. Vital Signs: 12/28 20:40 BP 130 / 68; Pulse 75; Resp 16; Temp 98.4(O); Pulse Ox 98% on R/A; eh3 21:45 BP 165 / 85; Pulse 77; Resp 18; Pulse Ox 99% on 1 lpm NC; eh3 12/29 00:00 BP 152 / 84; Pulse 72; Resp 17 S; Pulse Ox 100% on R/A; lg3 01:24 BP 133 / 64; Pulse 70; Resp 16 S; Pulse Ox 97% on R/A; lg3 ED Course: 12/28 20:28 Patient arrived in ED. mm9 20:40 Erika Donohue, RN is Primary Nurse. eh3 20:41 Triage completed. eh3 20:41 Arm band placed on right wrist. eh3 20:44 Patient has correct armband on for positive identification. Bed in low position. Call eh3 light in reach. Side rails up X2. Client placed on continuous cardiac and pulse oximetry monitoring. NIBP monitoring applied. Door closed. Noise minimized. Lights dimmed. Warm blanket given. 20:49 Diego Ramirez MD is Attending Physician. hannah 21:30 Inserted saline lock: 18 gauge in left EJ, using aseptic technique. ,using aseptic 3 technique. Inserted by Diego Ramirez MD Blood collected. 21:37 PT-INR Sent. eh3 21:37 AMMONIA Sent. eh3 21:37 Comprehensive Metabolic Panel Sent. eh3 21:37 CBC with Diff Sent. eh3 21:47 Tylenol Level Sent. eh3 21:47 Asprin Sent. eh3 21:48 Alcohol Level Sent. eh3 21:48 Basic Metabolic Panel Sent. eh3 21:48 Magnesium Sent. eh3 21:48 NT PRO-BNP Sent. eh3 21:48 Troponin HS Sent. eh3 21:48 PT-INR Sent. eh3 21:48 AMMONIA Sent. eh3 21:48 Comprehensive Metabolic Panel Sent. eh3 21:48 CBC with Diff Sent. eh3 22:06 UDS Sent. eh3 22:08 SARS RAPID Sent. eh3 22:20 CT Head Brain wo Cont In Process Unspecified. EDMS 22:20 CT Chest Abdomen Pelvis W/O Contrast In Process Unspecified. EDMS 22:34 Olegario Bettencourt is Hospitalizing Provider. hannah 22:47 Diet: Patient given juice. Tolerated poorly. eh3 23:09 XRAY Chest (1 view) In Process Unspecified. EDMS 12/29 01:25 No provider procedures requiring assistance completed. Patient admitted, IV remains in lg3 place. intact, No redness/swelling at site. Administered Medications: 12/28 21:37 Drug: NS 0.9% 250 ml Route: IV; Rate: bolus; Site: left jugular; 3 22:09 Follow up: Response: No adverse reaction; IV Status: Completed infusion; IV Intake: eh3 250ml 21:40 Not Given (Duplicate Order): NS 0.9% 1000 ml IV at 75 ml/hr continuous hannah 22:31 Drug: Thiamine 100 mg Route: IV; Rate: bolus; Site: left jugular; 3 22:31 Follow up: Response: No adverse reaction 3 22:40 Follow up: Response: No adverse reaction; IV Status: Completed infusion 3 22:31 Drug: Banana Bag - (NS 0.9% 1000 ml, foLIC Acid 1 mg, Thiamine 100 mg, Multivitamin 1 eh3 amp) Route: IV; Rate: 100 ml/hr; Site: left jugular; 22:31 Drug: Zofran (Ondansetron) 4 mg Route: IVP; Site: left jugular; 3 22:32 Follow up: Response: No adverse reaction 3 22:40 Drug: Potassium Effervescent Tablet 25 mEq Route: PO; 3 22:40 Follow up: Response: No adverse reaction 3 22:53 Drug: Magnesium Sulfate 2 grams Route: IVPB; Infused Over: 2 hrs; Site: left jugular; 3 12/29 01:23 Follow up: Response: No adverse reaction; IV Status: Completed infusion; IV Intake: lg3 100ml 01:23 Drug: HALdol (haloperidol) 5 mg Route: IVP; Site: left jugular; 3 Medication: 03:01 VIS not applicable for this client. lg3 Intake: 12/28 22:09 IV: 250ml; Total: 250ml. 3 12/29 01:23 IV: 100ml; Total: 350ml. 3 Outcome: 12/28 22:36 Decision to Hospitalize by Provider. [facility] 12/29 03:01 Admitted to Med/surg accompanied by tech, via stretcher, Report called to [facility] Condition: stable Instructed on the need for admit, Demonstrated understanding of instructions. 03:02 Patient left the ED. lg3 Signatures: Dispatcher [employer] EDDiego Angela MD MD cha Gibson, Lacie, RN RN lg3 Erika Donohue RN RN 3 Angelica Marley mm9 Corrections: (The following items were deleted from the chart) 12/28 22:48 22:47 Diet: Patient given juice. Tolerated [place] [id number] 12/29 01:34 01:24 BP 144 / 89; Pulse 70bpm; Resp 18bpm; Spontaneous; Pulse Ox 99% RA; lg3 3
--- NOTE | 2021-12-28 22:37 | EDPHYS ---
Physician Documentation [facility] Name: Jaimie Amanda Age: 61 yrs Sex: Female : 1960 Arrival Date: 12/28/2021 Time: 20:28 Bed 17 Private MD: ED Physician Diego Ramirez HPI: 12/28 21:38 This 61 yrs old Female presents to ER via EMS with complaints of abd pain, hannah ams. Historical: - PMHx: 20:41 Anxiety; Hypertensive disorder; Hypothyroidism; low NA; Alcoholism; eh3 - PSHx: 20:41 Thyroidectomy; eh3 - Immunization history:: Adult Immunizations unknown. - Social history:: Smoking status: unknown. ROS: 21:40 Constitutional: Negative for fever, chills, and weight loss, Eyes: Negative for injury, hannah pain, redness, and discharge, ENT: Negative for injury, pain, and discharge, Neck: Negative for injury, pain, and swelling, Cardiovascular: Negative for chest pain, palpitations, and edema, Respiratory: Negative for shortness of breath, cough, wheezing, and pleuritic chest pain, Back: Negative for injury and pain, : Negative for injury, bleeding, discharge, and swelling, MS/Extremity: Negative for injury and deformity, Skin: Negative for injury, rash, and discoloration, Psych: Negative for depression, anxiety, suicide ideation, homicidal ideation, and hallucinations, Allergy/Immunology: Negative for hives, rash, and allergies, Endocrine: Negative for neck swelling, polydipsia, polyuria, polyphagia, and marked weight changes, Hematologic/Lymphatic: Negative for swollen nodes, abnormal bleeding, and unusual bruising. 21:40 Abdomen/GI: Positive for abdominal pain, nausea, vomiting, of the right upper quadrant, left upper quadrant, right lower quadrant and left lower quadrant. 21:40 Neuro: Positive for altered mental status, weakness. Exam: 21:40 Constitutional: This is a well developed, well nourished patient who is awake, alert, hannah and in no acute distress. Head/Face: Normocephalic, atraumatic. Eyes: Pupils equal round and reactive to light, extra-ocular motions intact. Lids and lashes normal. Conjunctiva and sclera are non-icteric and not injected. Cornea within normal limits. Periorbital areas with no swelling, redness, or edema. ENT: Nares patent. No nasal discharge, no septal abnormalities noted. Tympanic membranes are normal and external auditory canals are clear. Oropharynx with no redness, swelling, or masses, exudates, or evidence of obstruction, uvula midline. Mucous membranes moist. Neck: Trachea midline, no thyromegaly or masses palpated, and no cervical lymphadenopathy. Supple, full range of motion without nuchal rigidity, or vertebral point tenderness. No Meningismus. Chest/axilla: Normal chest wall appearance and motion. Nontender with no deformity. No lesions are appreciated. Cardiovascular: Regular rate and rhythm with a normal S1 and S2. No gallops, murmurs, or rubs. Normal PMI, no JVD. No pulse deficits. Respiratory: Lungs have equal breath sounds bilaterally, clear to auscultation and percussion. No rales, rhonchi or wheezes noted. No increased work of breathing, no retractions or nasal flaring. Back: No spinal tenderness. No costovertebral tenderness. Full range of motion. Female : Normal external genitalia. Skin: Warm, dry with normal turgor. Normal color with no rashes, no lesions, and no evidence of cellulitis. MS/ Extremity: Pulses equal, no cyanosis. Neurovascular intact. Full, normal range of motion. Psych: Awake, alert, with orientation to person, place and time. Behavior, mood, and affect are within normal limits. 21:40 Neuro: Orientation: to person, place, time, situation, Mentation: slow to respond, Memory: is normal, Cranial nerves: grossly normal, is grossly normal based on the patient's age, no acute changes, Cerebellar function: is grossly normal, is grossly normal based on the patient's age, no acute changes, Motor: is normal, is grossly normal based on the patient's age, no acute changes, moves all fours, strength is normal, strength is 5/5 in all extremities, Sensation: no obvious gross deficits, appropriate no acute changes, Gait: not tested. Deep tendon reflexes are 1 (trace) + in the bilateral brachioradialis, bicep, tricep and patellar and Achilles tendons, Babinski testing is normal, seizure activity, is not displayed by the patient. 22:36 Neck: ROM/movement: is normal, no acute changes, pain, is not appreciated, limited hannah range of motion, is not appreciated, Meningeal signs: are not present, Kernig's sign is negative, Brudzinski's sign is negative, nuchal rigidity, is not appreciated. 22:41 ECG was reviewed by the Attending Physician. [facility] Vital Signs: 20:40 BP 130 / 68; Pulse 75; Resp 16; Temp 98.4(O); Pulse Ox 98% on R/A; eh3 21:45 BP 165 / 85; Pulse 77; Resp 18; Pulse Ox 99% on 1 lpm NC; eh3 12/29 00:00 BP 152 / 84; Pulse 72; Resp 17 S; Pulse Ox 100% on R/A; lg3 01:24 BP 133 / 64; Pulse 70; Resp 16 S; Pulse Ox 97% on R/A; lg3 Procedures: 12/28 21:44 Peripheral line: by aseptic technique a peripheral line was placed in the left external hannah jugular vein. MDM: 20:49 Patient medically screened. [facility] 21:48 Differential Diagnosis: CVA, electrolyte abnormality, alcohol intoxication, hannah hypoglycemia, intracranial bleed, meningitis, overdose, seizure, sepsis, TIA. Differential diagnosis: bowel obstruction, gastritis, Mesenteric ischemia or infarction, non-specific abd pain, pancreatitis, Peptic Ulcer Disease, Perf. Duodenal Ulcer, urinary tract infection. Data reviewed: vital signs, nurses notes, EMS record, lab test result(s), EKG, radiologic studies, CT scan, plain films. 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 Test interpretation: by ED physician or midlevel provider: ECG, plain radiologic studies. Counseling: I had a detailed discussion with the patient and/or guardian regarding: the historical points, exam findings, and any diagnostic results supporting the discharge/admit diagnosis, lab results, radiology results. 12/28 20:50 Order name: CBC with Diff; Complete Time: 22:21 hannah 12/28 20:50 Order name: Comprehensive Metabolic Panel; Complete Time: 22:21 hannah 12/28 21:26 Order name: AMMONIA; Complete Time: 22:21 hannah 12/28 21:26 Order name: PT-INR; Complete Time: 22:21 hannah 12/28 21:37 Order name: Basic Metabolic Panel; Complete Time: 22:41 [facility] 12/28 21:37 Order name: Magnesium; Complete Time: 22:41 [facility] 12/28 21:37 Order name: NT PRO-BNP; Complete Time: 22:41 12/28 21:37 Order name: Troponin HS; Complete Time: 22:41 hannah 12/28 21:37 Order name: Alcohol Level; Complete Time: 22:41 hannah 12/28 21:37 Order name: UDS; Complete Time: 22:33 hannah 12/28 21:37 Order name: Asprin; Complete Time: 22:33 [facility] 12/28 21:37 Order name: Tylenol Level; Complete Time: 22:41 [facility] 12/28 21:38 Order name: SARS RAPID; Complete Time: 22:49 eh3 12/28 22:08 Order name: Urine Dipstick-Ancillary; Complete Time: 22:21 EDMS 12/28 20:50 Order name: Urine Dipstick-Ancillary (obtain specimen); Complete Time: 22:09 [facility] 12/28 21:37 Order name: XRAY Chest (1 view); Complete Time: 23:32 [facility] 12/28 21:37 Order name: EKG; Complete Time: 21:38 [facility] 12/28 21:37 Order name: Cardiac monitoring; Complete Time: 21:38 [facility] 12/28 21:37 Order name: EKG - Nurse/Tech; Complete Time: 22:32 hannah 12/28 21:37 Order name: IV Saline Lock; Complete Time: 21:39 [facility] 12/28 21:37 Order name: CT Head Brain wo Cont; Complete Time: 22:33 [facility] 12/28 21:37 Order name: CT Chest Abdomen Pelvis W/O Contrast; Complete Time: 22:41 [facility] 12/28 21:37 Order name: Labs collected and sent; Complete Time: 21:39 [facility] 12/28 21:37 Order name: O2 Per Protocol; Complete Time: 21:39 [facility] 12/28 21:37 Order name: O2 Sat Monitoring; Complete Time: 21:39 [facility] 12/28 21:40 Order name: Seizure Precautions; Complete Time: 22:08 [facility] 12/28 22:42 Order name: PO challenge: juice; Complete Time: 22:47 [facility] EC:41 Rate is 70 beats/min. Rhythm is regular. QRS [place] is Normal. IN interval is normal. QRS hannah interval is normal. QT interval is normal. No Q waves. T waves are Normal. No ST changes noted. Clinical impression: Normal ECG and No evidence of ischemia. Interpreted by me. Reviewed by me. Administered Medications: 21:37 Drug: NS 0.9% 250 ml Route: IV; Rate: bolus; Site: left jugular; eh3 22:09 Follow up: Response: No adverse reaction; IV Status: Completed infusion; IV Intake: eh3 250ml 21:40 Not Given (Duplicate Order): NS 0.9% 1000 ml IV at 75 ml/hr continuous hannah 22:31 Drug: Thiamine 100 mg Route: IV; Rate: bolus; Site: left jugular; eh3 22:31 Follow up: Response: No adverse reaction eh3 22:40 Follow up: Response: No adverse reaction; IV Status: Completed infusion eh3 22:31 Drug: Banana Bag - (NS 0.9% 1000 ml, foLIC Acid 1 mg, Thiamine 100 mg, Multivitamin 1 eh3 amp) Route: IV; Rate: 100 ml/hr; Site: left jugular; 22:31 Drug: Zofran (Ondansetron) 4 mg Route: IVP; Site: left jugular; eh3 22:32 Follow up: Response: No adverse reaction eh3 22:40 Drug: Potassium Effervescent Tablet 25 mEq Route: PO; eh3 22:40 Follow up: Response: No adverse reaction eh3 22:53 Drug: Magnesium Sulfate 2 grams Route: IVPB; Infused Over: 2 hrs; Site: left jugular; lg3 12/29 01:23 Follow up: Response: No adverse reaction; IV Status: Completed infusion; IV Intake: lg3 100ml 01:23 Drug: HALdol (haloperidol) 5 mg Route: IVP; Site: left jugular; lg3 Disposition Summary: 12/28/21 22:36 Hospitalization Ordered Hospitalization Status: Observation hannah Provider: Olegario Bettencourt cha Condition: Fair hannah Problem: new hannah Symptoms: have improved hannah Bed/Room Type: Standard hannah Location: Telemetry/MedSurg (observation)(12/28/21 22:42) bb Room Assignment: [facility](12/29/21 01:41) mw Diagnosis - Altered mental status, unspecified hannah - Weakness hannah - Headache hannah - Abdominal pain, Generalized hannah Forms: - Medication Reconciliation Form hannah - SBAR form hannah Signatures: Dispatcher [employer] Rosemarie Hernandez RN RN Diego Garcia MD MD cha Ballard, Brenda, RN RN bb Gibson, Lacie, RN RN lg3 Erika Donohue RN RN 3 Dior Garcia PA-C PA-C sb4 Corrections: (The following items were deleted from the chart) 12/28 22:41 22:36 [facility] 22: 22:36 Telemetry/MedSurg (observation) [facility] 22:[address] [place] [address] 12/29 01:41 12/28 22:42 misbah
[2021-12-28 22:44] LABS: SARS-CoV-2 Antigen Rapid Res Negative (Negative)
[2021-12-28] MEDS ORDERED: Magnesium Sulfate 2gm IVPB 2 G/50 ML BAG IV ONE (22:54)
--- NOTE | 2021-12-28 23:13 | RAD REPORT ---
EXAM DESCRIPTION: Trina Single View12/28/2021 11:07 pm CLINICAL HISTORY: Cough COMPARISON: December 26, 2021 FINDINGS: The lungs appear clear of acute infiltrate. The heart is normal size IMPRESSION: No acute abnormalities displayed
--- NOTE | 2021-12-29 00:14 | P.HP ---
Certification for Inpatient Patient admitted to: Observation With expected LOS: <2 Midnights Patient will require the following post-hospital care: None Practitioner: I am a practitioner with admitting privileges, knowledge of patient current condition, hospital course, and medical plan of care. Services: Services provided to patient in accordance with Admission requirements found in Title 42 Section 412.3 of the Code of Federal Regulations Patient History Date of Service: 12/29/21 Reason for admission: AMS History of Present Illness: Patient is a 61-year-old female with history of epilepsy, hypertension, hypothryoidism and multiple hospitalizations for hyponatremia who presented to the emergency department via EMS with AMS. Patient was discharged from this facility this morning and was instructed to DC trileptal and start keppra. Today, her brother called EMS because she was answering questions inappropriately and he noticed that "her eyes kept rolling back." Patient is intermittently altered in the ED. She can answer questions appropriately, but her speech sounds more slurred, her eyes stare off, and she continues to ask for help but cannot verbalize what she needs help with. Head CT and abd/pelv CT negative. Sodium 132. Ammonia negative. Urine negative for UTI. UDS negative. Etoh negative. She received banana bag, magnesium, and potassium in the ED. Patient is admitted for further evaluation and management of altered mental status. Allergies No Known Allergies Allergy (Verified 12/14/21 16:45) Home medications list reviewed: Yes Home Medications: Levothyroxine Sodium [Synthroid] 137 mcg PO DAILY 03/10/21 Losartan/Hydrochlorothiazide [Losartan-Hctz 100-25 mg Tab] 1 tab PO DAILY 03/10/21 Metformin HCl [Glucophage*] 500 mg PO DAILY 03/10/21 Metoclopramide HCl [Reglan] 10 mg PO QID 03/10/21 Omeprazole [Prilosec] 40 mg PO DAILY 03/10/21 Risperidone [Risperdal] 2 mg PO BID 03/10/21 cloNIDine HCL [Catapres*] 0.3 mg PO Q8H 03/10/21 clonazePAM [Klonopin*] 1 mg PO TIDP PRN 03/10/21 ondansetron HCL [Zofran] 4 mg PO Q8HP PRN 03/10/21 Trazodone [Desyrel*] 100 mg PO BEDTIME 12/27/21 Venlafaxine HCl [Effexor] 100 mg PO TID 12/27/21 levETIRAcetam [Keppra*] 500 mg PO BID #60 tab 12/28/21 - Past Medical/Surgical History Diabetic: No -: Hepatitis -: Anxiety -: HTN -: Hypothyroidism -: Alcoholic induced seizures -: NIDDM -: Thyroidectomy -: Plastic surgery breast -: hernia repair Psychosocial/ Personal History: Patient lives at home with her mother - Family History Mother -: Hypertension, Diabetes, Cancer Notes: Thyroid, Knee replacement Father -: Heart disease, Hypertension, Diabetes - Social History Smoking Status: Never smoker Alcohol use: Yes CD- Drugs: No Caffeine use: Yes Place of Residence: Home Review of Systems Gastrointestinal: Abdominal Pain Physical Examination - Physical Exam General: Alert, Oriented x3, Disheveled, Confused HEENT: Atraumatic, PERRLA, Sclerae nonicteric Neck: Supple, 2+ carotid pulse no bruit, No LAD, Without JVD or thyroid abnormality Respiratory: Clear to auscultation bilaterally, Normal air movement Cardiovascular: Regular rate/rhythm, Normal S1 S2 Gastrointestinal: Normal bowel sounds, No tenderness Musculoskeletal: No tenderness Integumentary: No rashes Neurological: Sensation intact, Abnormal speech, Abnormal affect - Studies Laboratory Data (last 24 hrs) 12/28/21 21:43: Sodium 132 L, Potassium 3.3 L, BUN 11, Creatinine 0.61, Glucose 102, Magnesium 1.7 L 12/28/21 21:38: PT 10.2, INR 0.93 12/28/21 21:38: Sodium 132 L, Potassium 3.4 L, BUN 11, Creatinine 0.62, Glucose 105, Total Bilirubin 0.2, AST 20, ALT 61, Alkaline Phosphatase 109 12/28/21 21:38: WBC 10.00, Hgb 11.1 L, Hct 32.0 L, Plt Count 305 Assessment and Plan - Problems (Diagnosis) (1) Altered mental status Current Visit: Yes Status: Acute Qualifiers: Altered mental status type: unspecified Qualified Code(s): R41.82 - Altered mental status, unspecified (2) Hyponatremia Current Visit: Yes Status: Acute (3) Seizure disorder Current Visit: Yes Status: Chronic (4) Hypertension Current Visit: Yes Status: Chronic Qualifiers: (5) Hypothyroidism Current Visit: Yes Status: Chronic Qualifiers: Hypothyroidism type: acquired Qualified Code(s): E03.9 - Hypothyroidism, unspecified - Plan -The cause of patient's altered mental status is unclear at this point. -Differential diagnosis includes: CVA, medication misuse, medication withdrawal, postictal state, alcohol withdrawal -Patient could benefit from MRI if symptoms do not improve. -Haldol is ordered as needed for agitation. -business services specialist sales consult in place. -Monitor neurologic status overnight with fall and seizure precautions in place and recheck labs in the AM. -Monitor and replete electrolytes per protocol -Reconcile and continue home medications -Lovenox for VTE prophyalxis -Full code Patient's mother, Tiffani, can be reached at [phone] Discharge Plan: Home Plan to discharge in: 24 Hours - Advance Directives Does patient have a Living Will: No Does patient have a Durable POA for Healthcare: No - Code Status/Comfort Care Code Status Assessed: Yes (Full) Critical Care: No Time Spent Managing Pts Care (In Minutes): 50
[2021-12-29] MEDS ORDERED: HALOPERIDOL LACT 5 MG/ML INJ IV PRN (00:33)
[2021-12-29] MEDS ORDERED: HALOPERIDOL LACT 5 MG/ML INJ ONE (01:15)
[2021-12-29] MEDS ORDERED: ACETAMINOPHEN 500 MG TAB PO PRN (03:00)
[2021-12-29 03:33] VITALS: O2SAT 96; BMI 24.1
[2021-12-29] MEDS: FOLIC ACID 1 MG, MULTIVITAMINS INJ 10 ML, THIAMINE HCL 100 MG in NA CHLORIDE 0.9% 1,000 ML IV SCH ×3 (05:29→13:01)
[2021-12-29 06:12] LABS: Absolute Lymphocytes (CBC) 2.7 K/uL (0.7-4.9); Hematocrit 31.1 % (36.0-45.0); Lymphocytes % 29.2 % (15.3-44.8); MCV 91.3 fL (80-100); MPV 6.6 fL (7.6-11.3); RBC Red Blood Cell Count 3.41 M/uL (3.86-4.86)
[2021-12-29 06:26] LABS: Magnesium 1.9 mg/dL (1.8-2.4); Phosphorus 3.4 mg/dL (2.5-4.9); Potassium 3.2 mmol/L (3.5-5.1)
[2021-12-29] MEDS: ONDANSETRON 4 MG/2 ML VIAL IV PRN ×2 (08:13→14:17)
[2021-12-29] MEDS ORDERED: ENOXAPARIN 40 MG/0.4 ML SQ SCH (09:00)
[2021-12-29] MEDS ORDERED: HYDRALAZINE HCL 20 MG/ML VIAL IV ONE (13:00)
[2021-12-29 13:41] VITALS: BP 210/95; TEMP 98.8
--- NOTE | 2021-12-29 14:24 | P.PN ---
Date of Service: 12/29/21 Patient seen and examined. She is awake and alert and states she is ready to go home. Blood pressure is elevated. Diagnosis: Breakthrough seizures with postictal state. Hyponatremia-improved. Hypertension. Plan: Case discussed with neurology-Dr. Stewart. He recommended EEG and to check Keppra level and then readjust Keppra dose which may take a few days of inpatient. Resume patient's antihypertensives. EEG in a.m. Neurology consult.
[2021-12-29] MEDS ORDERED: clonazePAM 1 MG TAB PO PRN (14:25)
[2021-12-29] MEDS ORDERED: HOME MED 1 EA UNK (Ondansetron Hcl [Zofran] 4 MG Tablet) PO PRN (14:25)
[2021-12-29] MEDS ORDERED: ONDANSETRON 4 MG (ODT) TAB PO PRN (14:56)
[2021-12-29] MEDS ORDERED: CLONIDINE HCL 0.3 MG TAB PO SCH (15:00)
[2021-12-29] MEDS ORDERED: RISPERIDONE 1 MG TABLET PO SCH (15:00)
[2021-12-29] MEDS ORDERED: levETIRAcetam 500 MG TAB PO SCH (15:00)
[2021-12-29] MEDS ORDERED: VENLAFAXINE HCL 100 MG PO SCH (17:00)
[2021-12-29] MEDS ORDERED: HOME MED 1 EA UNK (Risperidone [Risperdal] 2 MG Tablet) PO SCH (21:00)
[2021-12-30] MEDS ORDERED: LEVOTHYROXINE SOD 0.112 MG TAB PO SCH (06:00)
[2021-12-30] MEDS ORDERED: LEVOTHYROXINE SOD 0.025 MG TAB PO SCH (06:00)
[2021-12-30] MEDS ORDERED: HOME MED 1 EA UNK (Levothyroxine Sodium [Synthroid] 137 MCG Tablet) PO SCH (06:00)
[2021-12-30] MEDS ORDERED: HOME MED 1 EA UNK (Omeprazole [Prilosec] 40 MG Capsule.Dr) PO SCH (07:30)
[2021-12-30] MEDS ORDERED: PANTOPRAZOLE 40MG TABLET PO SCH (07:30)
[2021-12-30] MEDS ORDERED: HOME MED 1 EA UNK (Losartan/Hydrochlorothiazide [Losartan-Hctz 100-25 Mg Tab] 1 EACH Table PO SCH (09:00)
[2021-12-30] MEDS ORDERED: LOSARTAN/HCTZ 50-12.5 PO SCH (09:00)
--- NOTE | 2021-12-30 18:41 | EKG ---
Test Date: 2021-12-28 Test Time: 22:40:04 Photographic Supervisor: MYA MEASUREMENT RESULTS: Intervals: Rate: 70 NM: 178 QRSD: 90 QT: 416 QTc: 449 [place]: P: 56 NM: 178 QRS: 51 T: 66 INTERPRETIVE STATEMENTS: Normal sinus rhythm Normal ECG Compared to ECG 12/28/2021 22:39:40 No significant changes Electronically Signed On 12-30-21 18:38:19 CDT by Brian Booker
== END 2021-12-29 16:45 | disposition left against medical advice (07) ==
LOC: ER 20:24 → ERHOLD 12-29 00:08 → 4TH 12-29 01:55
PROVIDERS: ADMIT Internal Medicine; ATTEND Internal Medicine
DX: G40.909 Epilepsy, unspecified, not intractable, without status epilepticus (principal); I10 Essential (primary) hypertension; E87.1 Hypo-osmolality and hyponatremia; F41.9 Anxiety disorder, unspecified; E11.9 Type 2 diabetes mellitus without complications; Z20.822 Contact with and (suspected) exposure to COVID-19
CPT/HCPCS: 96365; 96367; 93005; 85025 ×2; 80048 ×2; 36415; 80320; 82140; 83735 ×2; 80329 ×2; 84100; 85610; 81003; 84484; 80053; 80177; 83880; 80307; 70450; 71250; 74176; 71045; 96375; 99285; 96366; 87811; J0360; J1630 ×2; J3411; J1650; J3475; J7050; J7030 ×2; J2405 ×3; G0378 ×2

== ENCOUNTER 2022-01-06 12:53 | Emergency (ER) | payer OTHER ==
--- OUTSIDE RECORDS SUMMARY | 2022-01-06 13:12 | XMS REPORT | Continuity of Care Document ---
:1960 Author Organization [facility] t Address [address] [place] [address] Care Team Providers Name Role Phone Sharpless Primary Care Physician MATT SIMPSON Attending Clinician Unavailable MATT SIMPSON Attending Clinician Unavailable Doctor Unassigned, [place] Attending Clinician Unavailable WALLY KRISHNAMURTHY Attending Clinician Unavailable Gramm Natacha CLARK Attending Clinician Payers Payer Name Policy Type Policy Number Effective Date Expiration Date Sarina castelan [facility] [id number] 2017 00:00:00 PLUS Problems This patient has [...] ers OPHEN INGREDI 07-27 ity of 00:00: [place] [address] [facility] Propensi Inactiv Reductas ty to e 2-28 e adverse 00:00: Inhibito reaction 00 rs to drug Nitrogly Propensi Active 2017-03 cerin ty to 1-08 adverse 00:00: reaction 00 to drug Social History Social Habit Start Date Stop Date Quantity Comments Source Alcohol intake 2016-05-01 2016-05-01 Current [facility] es 00:00:00 00:00:00 non-drinker of Medical nter alcohol (finding) Sex Assigned At [birth year] [facility] 00:00:00 00:00:00 [facility] Smoking Status Start Date Stop Date Source Current every day smoker 2016-05-01 00:00:00 [facility] Medications Ordered Filled Start Stop [...] capsule 00:00: 00 OXcarbazepi 0 Yes 600mg Q.[id number] Take [address] [address] ne 2-23 [id number] [facility] (TRILEPTAL) 10:23: 3D mouth 3 Med ical 600 MG 59 (three) Center tablet times daily. PARoxetine 2017-0 Yes 40mg QD Take [address] (PAXIL) 40 2-23 [facility] tablet 10:23: nightly. Medi anjelica [facility] Center OXcarbazepi 2016-0 Yes 600mg Q.05174759 Take [address] ne 2-23 [id number] [facility] (TRILEPTAL) 10:23: 3D mouth 3 Med ical 600 MG 59 (three) Center tablet times daily. PARoxetine 2017-0 Yes 40mg QD Take [address] (PAXIL) 40 2-23 [facility] tablet 10:23: nightly. Medi anjelica [facility] Center OXcarbazepi 2017-0 Yes 600mg Q.67942195 Take [address] ne 2-23 [id number] [facility] by [facility] (TRILEPTAL) 10:23: 3D mouth 3 Med ical 600 MG 59 (three) Center tablet times daily. PARoxetine 2017-0 Yes 40mg QD Take [address] (PAXIL) 40 2-23 [facility] tablet 10:23: nightly. [facility]i anjel[facility] OXcarbazepi 2017-0 Yes 600mg Q.25842258 Take [address] ne 2-23 [id number] [facility] by [facility] (TRILEPTAL) 10:23: 3D mouth 3 Med ical 600 MG 59 (three) Center tablet times daily. PARoxetine 2017-0 Yes 40mg QD Take [address] (PAXIL) 40 2-23 by [facility] tablet 10:23: nightly. [address] OXcarbazepi 2017-0 Yes 600mg Q.35579154 Take [address] ne 2-23 [id number] [facility] by [facility] (TRILEPTAL) 10:23: 3D mouth 3 Med ical 600 MG 59 (three) Center tablet times daily. PARoxetine 2017-0 Yes 40mg QD Take [address] (PAXIL) 40 2-23 by [facility] tablet 10:23: nightly. [address] OXcarbazepi 2017-0 Yes 600mg Q.94893903 Take [address] ne 2-23 [id number] [facility] (TRILEPTAL) 10:23: 3D mouth 3 Med ical 600 MG 59 (three) Center tablet times daily. PARoxetine 2017-0 Yes 40mg QD Take [address] (PAXIL) 40 2-23 by [facility] tablet 10:23: nightly. [address] OXcarbazepi 2017-0 Yes 600mg Q.15395904 Take [address] ne 2-23 [id number] [facility] (TRILEPTAL) 10:23: 3D mouth 3 Med ical 600 MG 59 (three) Center tablet times daily. PARoxetine 2017-0 Yes 40mg QD Take [address] (PAXIL) 40 2-23 by [facility] tablet 10:23: nightly. [address] OXcarbazepi 2017-0 Yes 600mg Q.72231162 Take [address] ne 2-23 [id number] [facility] (TRILEPTAL) 10:23: 3D mouth 3 Med ical 600 MG 59 (three) Center tablet times daily. PARoxetine 2017-0 Yes 40mg QD Take [address] (PAXIL) 40 2-23 by mouth [facility] tablet 10:23: nightly. [address] LORazepam 2017-0 Yes 1mg Take 1 [...] [facility] ne 4-04 mcg by Maggiekes (SYNTHROID, 12:29: mouth Medic al LEVOTHROID) 18 [...] Goal Plan of Care Note [code = 91741-8] Goal Plan of Care Note [code = 29973-4] Goal Plan of Care Note [code = 24907-4] Goal Plan of Care Note [code = 70099-5] Goal Plan of Care Note [code = 54939-4] Goal Plan of Care Note [code = 18541-1] Goal Plan of Care Note [code = 22233-1] Goal Plan of Care Note [code = 19434-5] Goal Plan of Care Note [code = 74434-4] Goal Plan of Care Note [code = 59827-6] Goal Plan of Care Note [code = 33847-6] Goal Plan of Care Note [code = 57111-6] Goal Plan of Care Note [code = 06067-8] Goal Plan of Care Note [code = 37011-8] Goal Plan of Care Note [code = 37481-2] Goal Plan of Care Note [code = 88080-4] Goal Plan of Care Note [code = 02850-7] Goal Plan of Care Note [code = 30765-5] Goal Plan of Care Note [code = 11450-1] Goal Plan of Care Note [code = 27862-7] Goal Plan of Care Note [code = 76914-2] Goal Plan of Care Note [code = 42656-3] Goal Plan of Care Note [code = 34365-4] Goal Plan of Care Note [code = 40738-8] Goal Plan of Care Note [code = 90512-8] Goal Plan of Care Note [code = 94603-9] Goal Plan of Care Note [code = 06070-4] Goal Plan of Care Note [code = 55143-3] Goal Plan of Care Note [code = 51878-6] Goal Plan of Care Note [code = 55425-7] Goal Plan of Care Note [code = 30540-1] Goal Plan of Care Note [code = 40272-3] Goal Plan of Care Note [code = 34893-2] Goal Plan of Care Note [code = 02458-3] Goal Plan of Care Note [code = 35825-5] Goal Plan of Care Note [code = 38531-9] Goal Plan of Care Note [code = 12565-4] Goal Plan of Care Note [code = 64665-6] Goal Plan of Care Note [code = 93007-5] Goal Plan of Care Note [code = 47604-1] Goal Plan of Care Note [code = 53884-1] Goal Plan of Care Note [code = 30368-2] Goal Plan of Care Note [code = 36464-1] Goal Plan of Care Note [code = 40283-7] Goal Plan of Care Note [code = 98005-1] Goal Plan of Care Note [code = 22881-3] Goal Plan of Care Note [code = 70095-3] Goal Plan of Care Note [code = 18542-5] Goal Plan of Care Note [code = 01820-0] Goal Plan of Care Note [code = 19355-8] Goal Plan of Care Note [code = 03845-0] Goal Plan of Care Note [code = 84346-5] Goal Plan of Care Note [code = 03695-5] Goal Plan of Care Note [code = 03016-7] Goal Plan of Care Note [code = 40266-4] Goal Plan of Care Note [code = 93500-6] Goal Plan of Care Note [code = 15392-9] Goal Plan of Care Note [code = 07075-0] Goal Plan of Care Note [code = 29056-0] Goal Plan of Care Note [code = 70336-6] Goal Plan of Care Note [code = 70594-3] Goal Plan of Care Note [code = 62441-6] Goal Plan of Care Note [code = 36235-1] Goal Plan of Care Note [code = 00482-7] Goal Plan of Care Note [code = 07866-5] Goal Plan of Care Note [code = 15793-3] Goal Plan of Care Note [code = 24703-1] Goal Plan of Care Note [code = 25719-6] Goal Plan of Care Note [code = 82810-4] Goal Plan of Care Note [code = 47227-4] Goal Plan of Care Note [code = 58118-3] Goal Plan of Care Note [code = 04685-0] Goal Plan of Care Note [code = 06754-1] Goal Plan of Care Note [code = 16612-7] Goal Plan of Care Note [code = 66440-9] Goal Plan of Care Note [code = 34231-6] Goal Plan of Care Note [code = 24196-0] Goal Plan of Care Note [code = 12679-3] Goal Plan of Care Note [code = 65915-1] Goal Plan of Care Note [code = 90997-0] Goal Plan of Care Note [code = 90575-9] Goal Plan of Care Note [code = 00745-3] Goal Plan of Care Note [code = 77175-4] Goal Plan of Care Note [code = 55876-3] Goal Plan of Care Note [code = 36869-2] Goal Plan of Care Note [code = 74430-1] Goal Plan of Care Note [code = 11851-8] Goal Plan of Care Note [code = 95977-2] Goal Plan of Care Note [code = 22788-5] Goal Plan of Care Note [code = 61983-6] Goal Plan of Care Note [code = 54643-5] Goal Plan of Care Note [code = 94354-9] Goal Plan of Care Note [code = 25939-6] Goal Plan of Care Note [code = 30551-3] Goal Plan of Care Note [code = 16373-7] Goal Plan of Care Note [code = 37536-2] Goal Plan of Care Note [code = 19194-2] Goal Plan of Care Note [code = 48499-9] Goal Plan of Care Note [code = 43404-2] Goal Plan of Care Note [code = 27924-5] Goal Plan of Care Note [code = 46478-8] Goal Plan of Care Note [code = 62018-7] Encounters Start End Encounter Admission Attending Care Care Encounter Source Date/Time Date/Time Type Type Clinicians Facility Department ID 2021-06-01 Outpatient [facility] [id number] [place] 01:36:29 [id number] [facility] 2021-12-19 2021-12-19 Outpatient [facility] SFA [id number] Cristian 16:11:31 16:11:31 1013 F Jerman 2021-12-19 2021-12-19 Outpatient [id number] 00:00:00 00:00:00 Visit [id number] 770-441f-a -adae-62b amelia-62bace tjxrd22cg fd81af 2021-09-17 2021-09-17 Outpatient aes7tjhe- [id number] c3kceu-4 00:00:00 00:00:00 Visit 935a-4f50 35a-4f50-b -l89y-v0q 77d-c2ba85 [id number] 1264a6 2020-08-03 2020-08-03 Outpatient Bertin [facility] [id number] [facility] 10:00:00 10:00:00 [facility] 2020-07-25 2020-07-25 Orders Doctor ABE [id number] 00:00:00 00:00:00 Only Unassigned, BK 350.1.13.10 Otoe [facility] 4.2.7.2.686 [id number] 2019-09-26 2019-09-26 Outpatient Bertin KRISHNAMURTHY [facility] [id number] [facility] 16:00:00 16:00:00 [facility] 2018-10-21 2018-10-21 [facility], [facility] [id number] 00:00:00 00:00:00 Natacha Nguyen 350.1.13.10 Ade 4.2.7.2.686 [place] [id number] [address] Results Test Description Test Time Test Comments Results Result Comments Source TSH, THIRD GENERATION 2021-06-27 05:15:49 Test Item Value Reference Range Interpretation Comme nts TSH, THIRD GENERATION (test code = 2821) 2.080 UIU/ML 0.400-4.100 HEMOGLOBIN [id number] 03:46:00 Test Item Value Reference Range Interpretation Comments HEMOGLOBIN A1c (test 6.6 % 4.2-5.6 H AMERIC AN DIABETES code = 11383) ASSOCIATION IDELINES FOR HGB A1C: PREDIABETES/INC REASED [...] INDICATED, ALL TESTING PER FORMED ATCLINICAL PATH [facility], [facility]. [address] [place], [place] [address] LABORATORY DIRE CTOR: DIANA RUSS M.D. CLIA NUMBER [id number] [facility]. [id number] LIPID [id number] 02:59:52 Test Item Value Reference Range Interpretation [...] MOREINFORMATION , SEE CLIENT ANNOUNCE MENT AT [email or web address] RISK RATIO LDL/HDL 4.02 RATIO <3.22 H (test code = 2238) [id number] 00:00:00 Test Item Value Reference Range Interpretation Comments TSH, THIRD GENERATION (test code 2.080 UIU/ML = 2821) [id number] 00:00:00 Test Item Value Reference Range Interpretation Comments TSH, THIRD GENERATION (test code 2.080 UIU/ML = 2821) LIPID [id number] 00:00:00 Test Item Value Reference Range Interpretation Comments CHOLESTEROL (test code = 2210) 292 MG/DL TRIGLYCERIDES (test code = 2232) 184 MG/DL HDL CHOLESTEROL (test code = 2220) 51 MG/DL CALC LDL CHOL (test code = 2237) 205 MG/DL RISK RATIO LDL/HDL (test code = 4.02 RATIO 2238) HEMOGLOBIN [id number] 00:00:00 Test Item Value Reference Range Interpretation Comments HEMOGLOBIN A1c (test code = 66165) 6.6 % HEMOGLOBIN [id number] 00:00:00 Test Item Value Reference Range Interpretation Comments HEMOGLOBIN A1c (test code = 87096) 6.6 % [id number] 00:00:00 Test Item Value Reference Range Interpretation Comments TSH, THIRD GENERATION (test code 2.080 UIU/ML = 2821) [id number] 00:00:00 Test Item Value Reference Range Interpretation Comments TSH, THIRD GENERATION (test code 2.080 UIU/ML = 2821) [id number] 00:00:00 Test Item Value Reference Range Interpretation Comments TSH, THIRD GENERATION (test code 2.080 UIU/ML = 2821) LIPID [id number] 00:00:00 Test Item Value Reference Range Interpretation Comments CHOLESTEROL (test code = 2210) 292 MG/DL TRIGLYCERIDES (test code = 2232) 184 MG/DL HDL CHOLESTEROL (test code = 2220) 51 MG/DL CALC LDL CHOL (test code = 2237) 205 MG/DL RISK RATIO LDL/HDL (test code = 4.02 RATIO 2238) LIPID [id number] 00:00:00 Test Item Value Reference Range Interpretation Comments CHOLESTEROL (test code = 2210) 292 MG/DL TRIGLYCERIDES (test code = 2232) 184 MG/DL HDL CHOLESTEROL (test code = 2220) 51 MG/DL CALC LDL CHOL (test code = 2237) 205 MG/DL RISK RATIO LDL/HDL (test code = 4.02 RATIO 2238) HEMOGLOBIN [id number] 00:00:00 Test Item Value Reference Range Interpretation Comments HEMOGLOBIN A1c (test code = 63404) 6.6 % HEMOGLOBIN [id number] 00:00:00 Test Item Value Reference Range Interpretation Comments HEMOGLOBIN A1c (test code = 16413) 6.6 % HEMOGLOBIN [id number] 00:00:00 Test Item Value Reference Range Interpretation Comments HEMOGLOBIN A1c (test code = 62195) 6.6 % HEMOGLOBIN [id number] 00:00:00 Test Item Value Reference Range Interpretation Comments HEMOGLOBIN A1c (test code = 51457) 6.8 % HEMOGLOBIN [id number] 00:00:00 Test Item Value Reference Range Interpretation Comments HEMOGLOBIN A1c (test code = 83606) 6.8 % LIPID [id number] 00:00:00 Test Item Value Reference Range Interpretation Comments CHOLESTEROL (test code = 2210) 303 MG/DL TRIGLYCERIDES (test code = 2232) 191 MG/DL HDL CHOLESTEROL (test code = 2220) 61 MG/DL CALC LDL CHOL (test code = 2237) 205 MG/DL RISK RATIO LDL/HDL (test code = 3.36 RATIO 2238) [id number] 00:00:00 Test Item Value Reference Range Interpretation Comments TSH, THIRD GENERATION (test code 0.769 UIU/ML = 2821) [id number] 00:00:00 Test Item Value Reference Range Interpretation Comments TSH, THIRD GENERATION (test code 0.769 UIU/ML = 2821) COMPREHENSIVE METABOLIC [id number] 00:00:00 Test Item Value Reference Range Interpretation Comments GLUCOSE (test code = 2217) 131 MG/DL BUN (test code = 2208) 13 MG/DL CREATININE (test code = 2214) 0.65 MG/DL eGFR AMER. (test code 113 ML/MIN/1.73 = 02730) eGFR NON- AMER. (test 97 ML/MIN/1.73 code = 41456) CALC BUN/CREAT (test code = 20 RATIO [...] (test code = 2219) 23 U/L HEMOGLOBIN [id number] 00:00:00 Test Item Value Reference Range Interpretation Comments HEMOGLOBIN A1c (test code = 49836) 6.8 % HEMOGLOBIN [id number] 00:00:00 Test Item Value Reference Range Interpretation Comments HEMOGLOBIN A1c (test code = 57572) 6.8 % HEMOGLOBIN [id number] 00:00:00 Test Item Value Reference Range Interpretation Comments HEMOGLOBIN A1c (test code = 60434) 6.8 % LIPID [id number] 00:00:00 Test Item Value Reference Range Interpretation Comments CHOLESTEROL (test code = 2210) 303 MG/DL TRIGLYCERIDES (test code = 2232) 191 MG/DL HDL CHOLESTEROL (test code = 2220) 61 MG/DL CALC LDL CHOL (test code = 2237) 205 MG/DL RISK RATIO LDL/HDL (test code = 3.36 RATIO 2238) LIPID [id number] 00:00:00 Test Item Value Reference Range Interpretation Comments CHOLESTEROL (test code = 2210) 303 MG/DL TRIGLYCERIDES (test code = 2232) 191 MG/DL HDL CHOLESTEROL (test code = 2220) 61 MG/DL CALC LDL CHOL (test code = 2237) 205 MG/DL RISK RATIO LDL/HDL (test code = 3.36 RATIO 2238) [id number] 00:00:00 Test Item Value Reference Range Interpretation Comments TSH, THIRD GENERATION (test code 0.769 UIU/ML = 2821) [id number] 00:00:00 Test Item Value Reference Range Interpretation Comments TSH, THIRD GENERATION (test code 0.769 UIU/ML = 2821) [id number] 00:00:00 Test Item Value Reference Range Interpretation Comments TSH, THIRD GENERATION (test code 0.769 UIU/ML = 2821) COMPREHENSIVE METABOLIC [id number] 00:00:00 Test Item Value Reference Range Interpretation Comments GLUCOSE (test code = 2217) 131 MG/DL BUN (test code = 2208) 13 MG/DL CREATININE (test code = 2214) 0.65 MG/DL eGFR AMER. (test code 113 ML/MIN/1.73 = 36105) eGFR NON- AMER. (test 97 ML/MIN/1.73 code = 27907) CALC BUN/CREAT (test code = 20 RATIO [...] code = 2219) 23 U/L COMPREHENSIVE METABOLIC [id number] 00:00:00 Test Item Value Reference Range Interpretation Comments GLUCOSE (test code = 2217) 131 MG/DL BUN (test code = 2208) 13 MG/DL CREATININE (test code = 2214) 0.65 MG/DL eGFR AMER. (test code 113 ML/MIN/1.73 = 43641) eGFR NON- AMER. (test 97 ML/MIN/1.73 code = 35988) CALC BUN/CREAT (test code = 20 RATIO [...] (test code = 2219) 23 U/L HEMOGLOBIN [id number] 00:00:00 Test Item Value Reference Range Interpretation Comments HEMOGLOBIN A1c (test code = 92113) 6.6 % HEMOGLOBIN [id number] 00:00:00 Test Item Value Reference Range Interpretation Comments HEMOGLOBIN A1c (test code = 15599) 6.6 % LIPID [id number] 00:00:00 Test Item Value Reference Range Interpretation Comments CHOLESTEROL (test code = 2210) 261 MG/DL TRIGLYCERIDES (test code = 2232) 159 MG/DL HDL CHOLESTEROL (test code = 2220) 82 MG/DL CALC LDL CHOL (test code = 2237) 150 MG/DL RISK RATIO LDL/HDL (test code = 1.83 RATIO 2238) COMPREHENSIVE METABOLIC [id number] 00:00:00 Test Item Value Reference Range Interpretation Comments GLUCOSE (test code = 2217) 144 MG/DL BUN (test code = 2208) 15 MG/DL CREATININE (test code = 2214) 0.85 MG/DL eGFR AMER. (test code 87 ML/MIN/1.73 = 91370) eGFR NON- AMER. (test 75 ML/MIN/1.73 code = 44442) CALC BUN/CREAT (test code = 18 RATIO 2235) SODIUM (test code = 223) 133 MEQ/L POTASSIUM (test code = 2228) [...] THYROX. BIND. CAPAC. (test code 1.1 = 31873) T4 (THYROXINE) (test code = 4.3 UG/DL 2818) CORRECTED T4 (FTI) (test code = 3.9 UG/DL 2820) TSH, THIRD GENERATION (test 18.900 UIU/ML code = 2821) HEMOGLOBIN [id number] 00:00:00 Test Item Value Reference Range Interpretation Comments HEMOGLOBIN A1c (test code = 48814) 6.6 % HEMOGLOBIN [id number] 00:00:00 Test Item Value Reference Range Interpretation Comments HEMOGLOBIN A1c (test code = 74428) 6.6 % HEMOGLOBIN [id number] 00:00:00 Test Item Value Reference Range Interpretation Comments HEMOGLOBIN A1c (test code = 84778) 6.6 % LIPID [id number] 00:00:00 Test Item Value Reference Range Interpretation Comments CHOLESTEROL (test code = 2210) 261 MG/DL TRIGLYCERIDES (test code = 2232) 159 MG/DL HDL CHOLESTEROL (test code = 2220) 82 MG/DL CALC LDL CHOL (test code = 2237) 150 MG/DL RISK RATIO LDL/HDL (test code = 1.83 RATIO 2238) LIPID [id number] 00:00:00 Test Item Value Reference Range Interpretation Comments CHOLESTEROL (test code = 2210) 261 MG/DL TRIGLYCERIDES (test code = 2232) 159 MG/DL HDL CHOLESTEROL (test code = 2220) 82 MG/DL CALC LDL CHOL (test code = 2237) 150 MG/DL RISK RATIO LDL/HDL (test code = 1.83 RATIO 2238) COMPREHENSIVE METABOLIC [id number] 00:00:00 Test Item Value Reference Range Interpretation Comments GLUCOSE (test code = 2217) 144 MG/DL BUN (test code = 2208) 15 MG/DL CREATININE (test code = 2214) 0.85 MG/DL eGFR AMER. (test code 87 ML/MIN/1.73 = 54208) eGFR NON- AMER. (test 75 ML/MIN/1.73 code = 54808) CALC BUN/CREAT (test code = 18 RATIO [...] code = 2219) 50 U/L COMPREHENSIVE METABOLIC [id number] 00:00:00 Test Item Value Reference Range Interpretation Comments GLUCOSE (test code = 2217) 144 MG/DL BUN (test code = 2208) 15 MG/DL CREATININE (test code = 2214) 0.85 MG/DL eGFR AMER. (test code 87 ML/MIN/1.73 = 41741) eGFR NON- AMER. (test 75 ML/MIN/1.73 code = 36468) CALC BUN/CREAT (test code = 18 RATIO [...] THYROX. BIND. CAPAC. (test code 1.1 = 43777) T4 (THYROXINE) (test code = 4.3 UG/DL 281) CORRECTED T4 (FTI) (test code = 3.9 UG/DL 2820) TSH, THIRD GENERATION (test 18.900 UIU/ML code = 2821) THYROID II PROFILE (T3U, T4, T7, TSH)[id number] 00:00:00 Test Item Value Reference Range Interpretation Comments T-UPTAKE (test code = 2816) 30.2 % THYROX. BIND. CAPAC. (test code 1.1 = 40111) T4 (THYROXINE) (test code = 4.3 UG/DL 281) CORRECTED T4 (FTI) (test code = 3.9 UG/DL 2820) TSH, THIRD GENERATION (test 18.900 UIU/ML code = 2821) HEMOGLOBIN [id number] 00:00:00 Test Item Value Reference Range Interpretation Comments HEMOGLOBIN A1c (test code = 69202) 6.7 % HEMOGLOBIN [id number] 00:00:00 Test Item Value Reference Range Interpretation Comments HEMOGLOBIN A1c (test code = 55245) 6.7 % LIPID [id number] 00:00:00 Test Item Value Reference Range Interpretation Comments CHOLESTEROL (test code = 2210) 267 MG/DL TRIGLYCERIDES (test code = 2232) 137 MG/DL HDL CHOLESTEROL (test code = 2220) 48 MG/DL CALC LDL CHOL (test code = 2237) 192 MG/DL RISK RATIO LDL/HDL (test code = 4.00 RATIO 2238) COMPREHENSIVE METABOLIC [id number] 00:00:00 Test Item Value Reference Range Interpretation Comments GLUCOSE (test code = 2217) 155 MG/DL BUN (test code = 2208) 14 MG/DL CREATININE (test code = 2214) 0.52 MG/DL eGFR AMER. (test code 122 ML/MIN/1.73 = 55694) eGFR NON- AMER. (test 105 ML/MIN/1.73 code = 65769) CALC BUN/CREAT (test code = 27 RATIO [...] THYROX. BIND. CAPAC. (test code 1.0 = 41886) T4 (THYROXINE) (test code = 4.7 UG/DL 2819) CORRECTED T4 (FTI) (test code = 4.7 UG/DL 2820) TSH, THIRD GENERATION (test code 0.201 UIU/ML = 2821) HEMOGLOBIN [id number] 00:00:00 Test Item Value Reference Range Interpretation Comments HEMOGLOBIN A1c (test code = 16071) 6.7 % HEMOGLOBIN [id number] 00:00:00 Test Item Value Reference Range Interpretation Comments HEMOGLOBIN A1c (test code = 21102) 6.7 % HEMOGLOBIN [id number] 00:00:00 Test Item Value Reference Range Interpretation Comments HEMOGLOBIN A1c (test code = 98455) 6.7 % LIPID [id number] 00:00:00 Test Item Value Reference Range Interpretation Comments CHOLESTEROL (test code = 2210) 267 MG/DL TRIGLYCERIDES (test code = 2232) 137 MG/DL HDL CHOLESTEROL (test code = 2220) 48 MG/DL CALC LDL CHOL (test code = 2237) 192 MG/DL RISK RATIO LDL/HDL (test code = 4.00 RATIO 2238) LIPID [id number] 00:00:00 Test Item Value Reference Range Interpretation Comments CHOLESTEROL (test code = 2210) 267 MG/DL TRIGLYCERIDES (test code = 2232) 137 MG/DL HDL CHOLESTEROL (test code = 2220) 48 MG/DL CALC LDL CHOL (test code = 2237) 192 MG/DL RISK RATIO LDL/HDL (test code = 4.00 RATIO 2238) COMPREHENSIVE METABOLIC [id number] 00:00:00 Test Item Value Reference Range Interpretation Comments GLUCOSE (test code = 2217) 155 MG/DL BUN (test code = 2208) 14 MG/DL CREATININE (test code = 2214) 0.52 MG/DL eGFR AMER. (test code 122 ML/MIN/1.73 = 25735) eGFR NON- AMER. (test 105 ML/MIN/1.73 code = 95452) CALC BUN/CREAT (test code = 27 RATIO [...] code = 2219) 27 U/L COMPREHENSIVE METABOLIC [id number] 00:00:00 Test Item Value Reference Range Interpretation Comments GLUCOSE (test code = 2217) 155 MG/DL BUN (test code = 2208) 14 MG/DL CREATININE (test code = 2214) 0.52 MG/DL eGFR AMER. (test code 122 ML/MIN/1.73 = 68709) eGFR NON- AMER. (test 105 ML/MIN/1.73 code = 85667) CALC BUN/CREAT (test code = 27 RATIO [...] THYROX. BIND. CAPAC. (test code 1.0 = 89653) T4 (THYROXINE) (test code = 4.7 UG/DL 2819) CORRECTED T4 (FTI) (test code = 4.7 UG/DL 2820) TSH, THIRD GENERATION (test code 0.201 UIU/ML = 2821) THYROID II PROFILE (T3U, T4, T7, TSH)2019 00:00:00 Test Item Value Reference Range Interpretation Comments T-UPTAKE (test code = 2817) 33.1 % THYROX. BIND. CAPAC. (test code 1.0 = 25488) T4 (THYROXINE) (test code = 4.7 UG/DL 2819) CORRECTED T4 (FTI) (test code = 4.7 UG/DL 2820) TSH, THIRD GENERATION (test code 0.201 UIU/ML = 2821) SARS-CoV-2 (COVID-19) by RT-PCR (HIGH RISK)2019-09-18 00:00:00 Test Item Value Reference Range Interpretation Comments SARS-CoV-2 INTERPRETATION (test NEGATIVE code = 23364) SOURCE (test code = 94509) NOT SPECIFIED SARS-CoV-2 (COVID-19) by RT-PCR (HIGH RISK)2019-09-18 00:00:00 Test Item Value Reference Range Interpretation Comments SARS-CoV-2 INTERPRETATION (test NEGATIVE code = 51003) SOURCE (test code = 22334) NOT SPECIFIED SARS-CoV-2 (COVID-19) by RT-PCR (HIGH RISK)2019-09-18 00:00:00 Test Item Value Reference Range Interpretation Comments SARS-CoV-2 INTERPRETATION (test NEGATIVE code = 64413) SOURCE (test code = 24655) NOT SPECIFIED [id number] 00:00:00 Test Item Value Reference Range Interpretation Comments TSH, THIRD GENERATION (test code 2.490 UIU/ML = 2821) [id number] 00:00:00 Test Item Value Reference Range Interpretation Comments TSH, THIRD GENERATION (test code 2.490 UIU/ML = 2821) HEMOGLOBIN [id number] 00:00:00 Test Item Value Reference Range Interpretation Comments HEMOGLOBIN A1c (test code = 62673) 6.4 % HEMOGLOBIN [id number] 00:00:00 Test Item Value Reference Range Interpretation Comments HEMOGLOBIN A1c (test code = 30584) 6.4 % COMPREHENSIVE METABOLIC [id number] 00:00:00 Test Item Value Reference Range Interpretation Comments GLUCOSE (test code = 2217) 206 MG/DL BUN (test code = 2208) 23 MG/DL CREATININE (test code = 2214) 0.67 MG/DL eGFR AMER. (test code 112 ML/MIN/1.73 = 87944) eGFR NON- AMER. (test 97 ML/MIN/1.73 code = 99228) CALC BUN/CREAT (test code = 34 RATIO [...] ALT (test code = 2219) 25 U/L [id number] 00:00:00 Test Item Value Reference Range Interpretation Comments TSH, THIRD GENERATION (test code 2.490 UIU/ML = 2821) [id number] 00:00:00 Test Item Value Reference Range Interpretation Comments TSH, THIRD GENERATION (test code 2.490 UIU/ML = 2821) [id number] 00:00:00 Test Item Value Reference Range Interpretation Comments TSH, THIRD GENERATION (test code 2.490 UIU/ML = 2821) HEMOGLOBIN [id number] 00:00:00 Test Item Value Reference Range Interpretation Comments HEMOGLOBIN A1c (test code = 09101) 6.4 % HEMOGLOBIN [id number] 00:00:00 Test Item Value Reference Range Interpretation Comments HEMOGLOBIN A1c (test code = 33149) 6.4 % HEMOGLOBIN [id number] 00:00:00 Test Item Value Reference Range Interpretation Comments HEMOGLOBIN A1c (test code = 27427) 6.4 % COMPREHENSIVE METABOLIC [id number] 00:00:00 Test Item Value Reference Range Interpretation Comments GLUCOSE (test code = 2217) 206 MG/DL BUN (test code = 2208) 23 MG/DL CREATININE (test code = 2214) 0.67 MG/DL eGFR AMER. (test code 112 ML/MIN/1.73 = 99213) eGFR NON- AMER. (test 97 ML/MIN/1.73 code = 38700) CALC BUN/CREAT (test code = 34 RATIO [...] code = 2219) 25 U/L COMPREHENSIVE METABOLIC [id number] 00:00:00 Test Item Value Reference Range Interpretation Comments GLUCOSE (test code = 2217) 206 MG/DL BUN (test code = 2208) 23 MG/DL CREATININE (test code = 2214) 0.67 MG/DL eGFR AMER. (test code 112 ML/MIN/1.73 = 74354) eGFR NON- AMER. (test 97 ML/MIN/1.73 code = 20098) CALC BUN/CREAT (test code = 34 RATIO [...] = 2219) 25 U/L VAGINAL PATHOGENS DNA [id number] 00:00:00 Test Item Value Reference Range Interpretation Comments MARK SPECIES (test code = 44910) NEGATIVE G. VAGINALIS (test code = 50748) NEGATIVE T. VAGINALIS (test code = 52557) NEGATIVE VAGINAL PATHOGENS DNA [id number] 00:00:00 Test Item Value Reference Range Interpretation Comments MARK SPECIES (test code = 35647) NEGATIVE G. VAGINALIS (test code = 71660) NEGATIVE T. VAGINALIS (test code = 47327) NEGATIVE VAGINAL PATHOGENS DNA [id number] 00:00:00 Test Item Value Reference Range Interpretation Comments MARK SPECIES (test code = 59962) NEGATIVE G. VAGINALIS (test code = 44178) NEGATIVE T. VAGINALIS (test code = 25470) NEGATIVE HEMOGLOBIN A1c [ADDED]2018-12-01 00:00:00 Test Item Value Reference Range Interpretation Comments HEMOGLOBIN A1c (test code = 84886) 6.7 % HEMOGLOBIN A1c [ADDED]2018-12-01 00:00:00 Test Item Value Reference Range Interpretation Comments HEMOGLOBIN A1c (test code = 47537) 6.7 % COMPREHENSIVE METABOLIC PANEL [ADDED]2018-12-01 00:00:00 Test Item Value Reference Range Interpretation Comments GLUCOSE (test code = 2217) 136 MG/DL BUN (test code = 2208) 15 MG/DL CREATININE (test code = 2214) 0.64 MG/DL eGFR AMER. (test code 115 ML/MIN/1.73 = 22694) eGFR NON- AMER. (test 99 ML/MIN/1.73 code = 49536) CALC BUN/CREAT (test code = 23 RATIO [...] Interpretation Comments HEMOGLOBIN A1c (test code = 82355) 6.7 % HEMOGLOBIN A1c [ADDED]2018-12-01 00:00:00 Test Item Value Reference Range Interpretation Comments HEMOGLOBIN A1c (test code = 85140) 6.7 % HEMOGLOBIN A1c [ADDED]2018-12-01 00:00:00 Test Item Value Reference Range Interpretation Comments HEMOGLOBIN A1c (test code = 85627) 6.7 % COMPREHENSIVE METABOLIC PANEL [ADDED]2018-12-01 00:00:00 Test Item Value Reference Range Interpretation Comments GLUCOSE (test code = 2217) 136 MG/DL BUN (test code = 2208) 15 MG/DL CREATININE (test code = 2214) 0.64 MG/DL eGFR AMER. (test code 115 ML/MIN/1.73 = 08841) eGFR NON- AMER. (test 99 ML/MIN/1.73 code = 21480) CALC BUN/CREAT (test code = 23 RATIO [...] eGFR AMER. (test code 115 ML/MIN/1.73 = 13021) eGFR NON- AMER. (test 99 ML/MIN/1.73 code = 59904) CALC BUN/CREAT (test code = 23 RATIO [...] code 1.280 UIU/ML = 2821) CBC W/AUTO [id number] 00:00:00 Test Item Value Reference Range Interpretation [...] code = 1015) 346 K/UL CBC W/AUTO [id number] 00:00:00 Test Item Value Reference Range Interpretation [...] (test code = 1015) 346 K/UL HEMOGLOBIN [id number] 00:00:00 Test Item Value Reference Range Interpretation Comments HEMOGLOBIN A1c (test code = 99361) 5.9 % HEMOGLOBIN [id number] 00:00:00 Test Item Value Reference Range Interpretation Comments HEMOGLOBIN A1c (test code = 66646) 5.9 % LIPID [id number] 00:00:00 Test Item Value Reference Range Interpretation Comments CHOLESTEROL (test code = 2210) 318 MG/DL TRIGLYCERIDES (test code = 2232) 263 MG/DL HDL CHOLESTEROL (test code = 2220) 51 MG/DL CALC LDL CHOL (test code = 2237) 214 MG/DL RISK RATIO LDL/HDL (test code = 4.20 RATIO 2238) COMPREHENSIVE METABOLIC [id number] 00:00:00 Test Item Value Reference Range Interpretation Comments GLUCOSE (test code = 2217) 113 MG/DL BUN (test code = 2208) 18 MG/DL CREATININE (test code = 2214) 0.70 MG/DL eGFR AMER. (test code 111 ML/MIN/1.73 = 80068) eGFR NON- AMER. (test 96 ML/MIN/1.73 code = 25356) CALC BUN/CREAT (test code = 26 RATIO [...] ALT (test code = 2219) 31 U/L [id number] 00:00:00 Test Item Value Reference Range Interpretation Comments TSH, THIRD GENERATION (test code 2.520 UIU/ML = 2821) [id number] 00:00:00 Test Item Value Reference Range Interpretation Comments TSH, THIRD GENERATION (test code 2.520 UIU/ML = 2821) CBC W/AUTO [id number] 00:00:00 Test Item Value Reference Range Interpretation [...] code = 1015) 346 K/UL CBC W/AUTO [id number] 00:00:00 Test Item Value Reference Range Interpretation [...] code = 1015) 346 K/UL CBC W/AUTO [id number] 00:00:00 Test Item Value Reference Range Interpretation [...] (test code = 1015) 346 K/UL HEMOGLOBIN [id number] 00:00:00 Test Item Value Reference Range Interpretation Comments HEMOGLOBIN A1c (test code = 48263) 5.9 % HEMOGLOBIN [id number] 00:00:00 Test Item Value Reference Range Interpretation Comments HEMOGLOBIN A1c (test code = 75760) 5.9 % HEMOGLOBIN [id number] 00:00:00 Test Item Value Reference Range Interpretation Comments HEMOGLOBIN A1c (test code = 06115) 5.9 % LIPID [id number] 00:00:00 Test Item Value Reference Range Interpretation Comments CHOLESTEROL (test code = 2210) 318 MG/DL TRIGLYCERIDES (test code = 2232) 263 MG/DL HDL CHOLESTEROL (test code = 2220) 51 MG/DL CALC LDL CHOL (test code = 2237) 214 MG/DL RISK RATIO LDL/HDL (test code = 4.20 RATIO 2238) LIPID [id number] 00:00:00 Test Item Value Reference Range Interpretation Comments CHOLESTEROL (test code = 2210) 318 MG/DL TRIGLYCERIDES (test code = 2232) 263 MG/DL HDL CHOLESTEROL (test code = 2220) 51 MG/DL CALC LDL CHOL (test code = 2237) 214 MG/DL RISK RATIO LDL/HDL (test code = 4.20 RATIO 2238) COMPREHENSIVE METABOLIC [id number] 00:00:00 Test Item Value Reference Range Interpretation Comments GLUCOSE (test code = 2217) 113 MG/DL BUN (test code = 2208) 18 MG/DL CREATININE (test code = 2214) 0.70 MG/DL eGFR AMER. (test code 111 ML/MIN/1.73 = 43210) eGFR NON- AMER. (test 96 ML/MIN/1.73 code = 80377) CALC BUN/CREAT (test code = 26 RATIO [...] code = 2219) 31 U/L COMPREHENSIVE METABOLIC [id number] 00:00:00 Test Item Value Reference Range Interpretation Comments GLUCOSE (test code = 2217) 113 MG/DL BUN (test code = 2208) 18 MG/DL CREATININE (test code = 2214) 0.70 MG/DL eGFR AMER. (test code 111 ML/MIN/1.73 = 93418) eGFR NON- AMER. (test 96 ML/MIN/1.73 code = 30929) CALC BUN/CREAT (test code = 26 RATIO [...] ALT (test code = 2219) 31 U/L [id number] 00:00:00 Test Item Value Reference Range Interpretation Comments TSH, THIRD GENERATION (test code 2.520 UIU/ML = 2821) [id number] 00:00:00 Test Item Value Reference Range Interpretation Comments TSH, THIRD GENERATION (test code 2.520 UIU/ML = 2821) [id number] 00:00:00 Test Item Value Reference Range Interpretation Comments TSH, THIRD GENERATION (test code 2.520 UIU/ML = 2821) CULTURE, [id number] 00:00:00 Test Item Value Reference Range Interpretation Comments CULTURE, URINE (test SPECIMEN NUMBER: code = 45099) [id number] CULTURE, [id number] 00:00:00 Test Item Value Reference Range Interpretation Comments CULTURE, URINE (test SPECIMEN NUMBER: code = 73169) [id number] CULTURE, [id number] 00:00:00 Test Item Value Reference Range Interpretation Comments CULTURE, URINE (test SPECIMEN NUMBER: code = 95469) [id number] CULTURE, [id number] 00:00:00 Test Item Value Reference Range Interpretation Comments CULTURE, URINE (test SPECIMEN NUMBER: code = 51275) [id number] CULTURE, [id number] 00:00:00 Test Item Value Reference Range Interpretation Comments CULTURE, URINE (test SPECIMEN NUMBER: code = 65437) [id number] CULTURE, [id number] 00:00:00 Test Item Value Reference Range Interpretation Comments CULTURE, URINE (test SPECIMEN NUMBER: code = 68292) [id number] BASIC METABOLIC [id number] 00:00:00 Test Item Value Reference Range Interpretation Comments GLUCOSE (test code = 2217) 135 MG/DL BUN (test code = 2208) 25 MG/DL CREATININE (test code = 2214) 0.76 MG/DL eGFR AMER. (test code 101 ML/MIN/1.73 = 08825) eGFR NON- AMER. (test 87 ML/MIN/1.73 code = 39248) SODIUM (test code = 2231) 139 MEQ/L POTASSIUM (test code = 2228) 4.7 MEQ/L CHLORIDE (test code = 2215) 99 MEQ/L CARBON DIOXIDE (test code = 26 MEQ/L 2206) CALCIUM (test code = 2209) 9.4 MG/DL LIPID [id number] 00:00:00 Test Item Value Reference Range Interpretation Comments CHOLESTEROL (test code = 2210) 262 MG/DL TRIGLYCERIDES (test code = 2232) 300 MG/DL HDL CHOLESTEROL (test code = 2220) 36 MG/DL CALC LDL CHOL (test code = 2237) 166 MG/DL RISK RATIO LDL/HDL (test code = 4.61 RATIO 2238) HEMOGLOBIN [id number] 00:00:00 Test Item Value Reference Range Interpretation Comments HEMOGLOBIN A1c (test code = 26287) 6.2 % HEMOGLOBIN [id number] 00:00:00 Test Item Value Reference Range Interpretation Comments HEMOGLOBIN A1c (test code = 10776) 6.2 % [id number] 00:00:00 Test Item Value Reference Range Interpretation Comments TSH, THIRD GENERATION (test code 0.988 UIU/ML = 2821) [id number] 00:00:00 Test Item Value Reference Range Interpretation Comments TSH, THIRD GENERATION (test code 0.988 UIU/ML = 2821) BASIC METABOLIC [id number] 00:00:00 Test Item Value Reference Range Interpretation Comments GLUCOSE (test code = 2217) 135 MG/DL BUN (test code = 2208) 25 MG/DL CREATININE (test code = 2214) 0.76 MG/DL eGFR AMER. (test code 101 ML/MIN/1.73 = 35266) eGFR NON- AMER. (test 87 ML/MIN/1.73 code = 08547) SODIUM (test code = 2231) 139 MEQ/L POTASSIUM (test code = 2228) 4.7 MEQ/L CHLORIDE (test code = 2215) 99 MEQ/L CARBON DIOXIDE (test code = 26 MEQ/L 2206) CALCIUM (test code = 2209) 9.4 MG/DL BASIC METABOLIC [id number] 00:00:00 Test Item Value Reference Range Interpretation Comments GLUCOSE (test code = 2217) 135 MG/DL BUN (test code = 2208) 25 MG/DL CREATININE (test code = 2214) 0.76 MG/DL eGFR AMER. (test code 101 ML/MIN/1.73 = 62213) eGFR NON- AMER. (test 87 ML/MIN/1.73 code = 15386) SODIUM (test code = 2231) 139 MEQ/L POTASSIUM (test code = 2228) 4.7 MEQ/L CHLORIDE (test code = 2215) 99 MEQ/L CARBON DIOXIDE (test code = 26 MEQ/L 2205) CALCIUM (test code = 2209) 9.4 MG/DL LIPID [id number] 00:00:00 Test Item Value Reference Range Interpretation Comments CHOLESTEROL (test code = 2210) 262 MG/DL TRIGLYCERIDES (test code = 2232) 300 MG/DL HDL CHOLESTEROL (test code = 2220) 36 MG/DL CALC LDL CHOL (test code = 2237) 166 MG/DL RISK RATIO LDL/HDL (test code = 4.61 RATIO 2238) LIPID [id number] 00:00:00 Test Item Value Reference Range Interpretation Comments CHOLESTEROL (test code = 2210) 262 MG/DL TRIGLYCERIDES (test code = 2232) 300 MG/DL HDL CHOLESTEROL (test code = 2220) 36 MG/DL CALC LDL CHOL (test code = 2237) 166 MG/DL RISK RATIO LDL/HDL (test code = 4.61 RATIO 2238) HEMOGLOBIN [id number] 00:00:00 Test Item Value Reference Range Interpretation Comments HEMOGLOBIN A1c (test code = 69697) 6.2 % HEMOGLOBIN [id number] 00:00:00 Test Item Value Reference Range Interpretation Comments HEMOGLOBIN A1c (test code = 42022) 6.2 % HEMOGLOBIN [id number] 00:00:00 Test Item Value Reference Range Interpretation Comments HEMOGLOBIN A1c (test code = 71382) 6.2 % [id number] 00:00:00 Test Item Value Reference Range Interpretation Comments TSH, THIRD GENERATION (test code 0.988 UIU/ML = 2821) [id number] 00:00:00 Test Item Value Reference Range Interpretation Comments TSH, THIRD GENERATION (test code 0.988 UIU/ML = 2821) [id number] 00:00:00 Test Item Value Reference Range Interpretation Comments TSH, THIRD GENERATION (test code 0.988 UIU/ML = 2821) COMPREHENSIVE METABOLIC [id number] 00:00:00 Test Item Value Reference Range Interpretation Comments GLUCOSE (test code = 2217) 109 MG/DL BUN (test code = 2208) 25 MG/DL CREATININE (test code = 2214) 0.78 MG/DL eGFR AMER. (test code 98 ML/MIN/1.73 = 56964) eGFR NON- AMER. (test 84 ML/MIN/1.73 code = 34740) CALC BUN/CREAT (test code = 32 RATIO [...] (test code = 2219) 25 U/L LIPID [id number] 00:00:00 Test Item Value Reference Range Interpretation Comments CHOLESTEROL (test code = 2210) 295 MG/DL TRIGLYCERIDES (test code = 2232) 218 MG/DL HDL CHOLESTEROL (test code = 2220) 46 MG/DL CALC LDL CHOL (test code = 2237) 205 MG/DL RISK RATIO LDL/HDL (test code = 4.47 RATIO 2238) HEMOGLOBIN [id number] 00:00:00 Test Item Value Reference Range Interpretation Comments HEMOGLOBIN A1c (test code = 24212) 7.0 % HEMOGLOBIN [id number] 00:00:00 Test Item Value Reference Range Interpretation Comments HEMOGLOBIN A1c (test code = 83796) 7.0 % [id number] 00:00:00 Test Item Value Reference Range Interpretation Comments TSH, THIRD GENERATION (test code 0.565 UIU/ML = 2821) [id number] 00:00:00 Test Item Value Reference Range Interpretation Comments TSH, THIRD GENERATION (test code 0.565 UIU/ML = 2821) COMPREHENSIVE METABOLIC [id number] 00:00:00 Test Item Value Reference Range Interpretation Comments GLUCOSE (test code = 2217) 109 MG/DL BUN (test code = 2208) 25 MG/DL CREATININE (test code = 2214) 0.78 MG/DL eGFR AMER. (test code 98 ML/MIN/1.73 = 97925) eGFR NON- AMER. (test 84 ML/MIN/1.73 code = 42748) CALC BUN/CREAT (test code = 32 RATIO [...] code = 2219) 25 U/L COMPREHENSIVE METABOLIC [id number] 00:00:00 Test Item Value Reference Range Interpretation Comments GLUCOSE (test code = 2217) 109 MG/DL BUN (test code = 2208) 25 MG/DL CREATININE (test code = 2214) 0.78 MG/DL eGFR AMER. (test code 98 ML/MIN/1.73 = 13694) eGFR NON- AMER. (test 84 ML/MIN/1.73 code = 75727) CALC BUN/CREAT (test code = 32 RATIO [...] (test code = 2219) 25 U/L LIPID [id number] 00:00:00 Test Item Value Reference Range Interpretation Comments CHOLESTEROL (test code = 2210) 295 MG/DL TRIGLYCERIDES (test code = 2232) 218 MG/DL HDL CHOLESTEROL (test code = 2220) 46 MG/DL CALC LDL CHOL (test code = 2237) 205 MG/DL RISK RATIO LDL/HDL (test code = 4.47 RATIO 2238) LIPID [id number] 00:00:00 Test Item Value Reference Range Interpretation Comments CHOLESTEROL (test code = 2210) 295 MG/DL TRIGLYCERIDES (test code = 2232) 218 MG/DL HDL CHOLESTEROL (test code = 2220) 46 MG/DL CALC LDL CHOL (test code = 2237) 205 MG/DL RISK RATIO LDL/HDL (test code = 4.47 RATIO 2238) HEMOGLOBIN [id number] 00:00:00 Test Item Value Reference Range Interpretation Comments HEMOGLOBIN A1c (test code = 24887) 7.0 % HEMOGLOBIN [id number] 00:00:00 Test Item Value Reference Range Interpretation Comments HEMOGLOBIN A1c (test code = 01330) 7.0 % HEMOGLOBIN [id number] 00:00:00 Test Item Value Reference Range Interpretation Comments HEMOGLOBIN A1c (test code = 64876) 7.0 % [id number] 00:00:00 Test Item Value Reference Range Interpretation Comments TSH, THIRD GENERATION (test code 0.565 UIU/ML = 2821) [id number] 00:00:00 Test Item Value Reference Range Interpretation Comments TSH, THIRD GENERATION (test code 0.565 UIU/ML = 2821) [id number] 00:00:00 Test Item Value Reference Range Interpretation Comments TSH, THIRD GENERATION (test code 0.565 UIU/ML = 2821) [id number] 00:00:00 Test Item Value Reference Range Interpretation Comments TSH, THIRD GENERATION (test code 0.379 UIU/ML = 2821) [id number] 00:00:00 Test Item Value Reference Range Interpretation Comments TSH, THIRD GENERATION (test code 0.379 UIU/ML = 2821) [id number] 00:00:00 Test Item Value Reference Range Interpretation Comments TSH, THIRD GENERATION (test code 0.379 UIU/ML = 2821) [id number] 00:00:00 Test Item Value Reference Range Interpretation Comments TSH, THIRD GENERATION (test code 0.379 UIU/ML = 2821) [id number] 00:00:00 Test Item Value Reference Range Interpretation Comments TSH, THIRD GENERATION (test code 0.379 UIU/ML = 2821) CULTURE, [id number] 00:00:00 Test Item Value Reference Range Interpretation Comments CULTURE, URINE (test SPECIMEN NUMBER: code = 60476) [id number] CULTURE, [id number] 00:00:00 Test Item Value Reference Range Interpretation Comments CULTURE, URINE (test SPECIMEN NUMBER: code = 78476) [id number] CULTURE, [id number] 00:00:00 Test Item Value Reference Range Interpretation Comments CULTURE, URINE (test SPECIMEN NUMBER: code = 63573) [id number] COMPREHENSIVE METABOLIC [id number] 00:00:00 Test Item Value Reference Range Interpretation Comments GLUCOSE (test code = 2217) 128 MG/DL BUN (test code = 2208) 26 MG/DL CREATININE (test code = 2214) 0.92 MG/DL eGFR AMER. (test code 81 ML/MIN/1.73 = 32229) eGFR NON- AMER. (test 70 ML/MIN/1.73 code = 73225) CALC BUN/CREAT (test code = 28 RATIO [...] code = 2219) 29 U/L ACUTE HEPATITIS [id number] 00:00:00 Test Item Value Reference Range Interpretation Comments HEPATITIS A IgM (test code = NON-REACTIVE 60126) HEPATITIS B CORE IgM (test code NON-REACTIVE = 4644) HEPATITIS B SURF AG (test code = NON-REACTIVE 9789) HEPATITIS C ANTIBODY (test code NON-REACTIVE = 5355) INTERPRETATION HEPATITIS A: (NOTE) (test code = 2552) INTERPRETATION HEPATITIS B: (NOTE) (test code = 47143) INTERPRETATION HEPATITIS C: (NOTE) (test code = 57267) [id number] 00:00:00 Test Item Value Reference Range Interpretation Comments AMYLASE (test code = 2205) 32 U/L [id number] 00:00:00 Test Item Value Reference Range Interpretation Comments LIPASE (test code = 2058) 22 U/L [id number] 00:00:00 Test Item Value Reference Range Interpretation Comments LIPASE (test code = 2058) 22 U/L COMPREHENSIVE METABOLIC [id number] 00:00:00 Test Item Value Reference Range Interpretation Comments GLUCOSE (test code = 2217) 128 MG/DL BUN (test code = 2208) 26 MG/DL CREATININE (test code = 2214) 0.92 MG/DL eGFR AMER. (test code 81 ML/MIN/1.73 = 73845) eGFR NON- AMER. (test 70 ML/MIN/1.73 code = 55881) CALC BUN/CREAT (test code = 28 RATIO [...] code = 2219) 29 U/L COMPREHENSIVE METABOLIC [id number] 00:00:00 Test Item Value Reference Range Interpretation Comments GLUCOSE (test code = 2217) 128 MG/DL BUN (test code = 2208) 26 MG/DL CREATININE (test code = 2214) 0.92 MG/DL eGFR AMER. (test code 81 ML/MIN/1.73 = 91909) eGFR NON- AMER. (test 70 ML/MIN/1.73 code = 78152) CALC BUN/CREAT (test code = 28 RATIO [...] code = 2219) 29 U/L ACUTE HEPATITIS [id number] 00:00:00 Test Item Value Reference Range Interpretation Comments HEPATITIS A IgM (test code = NON-REACTIVE 43807) HEPATITIS B CORE IgM (test code NON-REACTIVE = 4644) HEPATITIS B SURF AG (test code = NON-REACTIVE 273) HEPATITIS C ANTIBODY (test code NON-REACTIVE = 4675) INTERPRETATION HEPATITIS A: (NOTE) (test code = 2552) INTERPRETATION HEPATITIS B: (NOTE) (test code = 65886) INTERPRETATION HEPATITIS C: (NOTE) (test code = 11715) ACUTE HEPATITIS [id number] 00:00:00 Test Item Value Reference Range Interpretation Comments HEPATITIS A IgM (test code = NON-REACTIVE 09959) HEPATITIS B CORE IgM (test code NON-REACTIVE = 4644) HEPATITIS B SURF AG (test code = NON-REACTIVE 9) HEPATITIS C ANTIBODY (test code NON-REACTIVE = 4675) INTERPRETATION HEPATITIS A: (NOTE) (test code = 2552) INTERPRETATION HEPATITIS B: (NOTE) (test code = 64160) INTERPRETATION HEPATITIS C: (NOTE) (test code = 29567) [id number] 00:00:00 Test Item Value Reference Range Interpretation Comments AMYLASE (test code = 2205) 32 U/L [id number] 00:00:00 Test Item Value Reference Range Interpretation Comments AMYLASE (test code = 2205) 32 U/L [id number] 00:00:00 Test Item Value Reference Range Interpretation Comments LIPASE (test code = 2058) 22 U/L [id number] 00:00:00 Test Item Value Reference Range Interpretation Comments LIPASE (test code = 2058) 22 U/L [id number] 00:00:00 Test Item Value Reference Range Interpretation Comments LIPASE (test code = 2058) 22 U/L [id number] 00:00:00 Test Item Value Reference Range Interpretation Comments TSH, THIRD GENERATION (test code 4.890 UIU/ML = 2821) [id number] 00:00:00 Test Item Value Reference Range Interpretation Comments TSH, THIRD GENERATION (test code 4.890 UIU/ML = 2821) COMPREHENSIVE METABOLIC [id number] 00:00:00 Test Item Value Reference Range Interpretation Comments GLUCOSE (test code = 2217) 121 MG/DL BUN (test code = 2208) 40 MG/DL CREATININE (test code = 2214) 1.48 MG/DL eGFR AMER. (test code 45 ML/MIN/1.73 = 82353) eGFR NON- AMER. (test 39 ML/MIN/1.73 code = 87998) CALC BUN/CREAT (test code = 27 RATIO 2235) SODIUM (test code = 2231) 143 MEQ/L POTASSIUM (test code = 2228) 5.3 MEQ/L CHLORIDE (test code = 2215) 100 MEQ/L CARBON DIOXIDE (test code = 27 MEQ/L 6) CALCIUM (test code = 2209) 9.8 MG/DL [...] ALT (test code = 2219) 20 U/L [id number] 00:00:00 Test Item Value Reference Range Interpretation Comments TSH, THIRD GENERATION (test code 4.890 UIU/ML = 2821) [id number] 00:00:00 Test Item Value Reference Range Interpretation Comments TSH, THIRD GENERATION (test code 4.890 UIU/ML = 2821) [id number] 00:00:00 Test Item Value Reference Range Interpretation Comments TSH, THIRD GENERATION (test code 4.890 UIU/ML = 2821) COMPREHENSIVE METABOLIC [id number] 00:00:00 Test Item Value Reference Range Interpretation Comments GLUCOSE (test code = 2217) 121 MG/DL BUN (test code = 2208) 40 MG/DL CREATININE (test code = 2214) 1.48 MG/DL eGFR AMER. (test code 45 ML/MIN/1.73 = 88627) eGFR NON- AMER. (test 39 ML/MIN/1.73 code = 32569) CALC BUN/CREAT (test code = 27 RATIO [...] code = 2219) 20 U/L COMPREHENSIVE METABOLIC [id number] 00:00:00 Test Item Value Reference Range Interpretation Comments GLUCOSE (test code = 2217) 121 MG/DL BUN (test code = 2208) 40 MG/DL CREATININE (test code = 2214) 1.48 MG/DL eGFR AMER. (test code 45 ML/MIN/1.73 = 45514) eGFR NON- AMER. (test 39 ML/MIN/1.73 code = 80645) CALC BUN/CREAT (test code = 27 RATIO [...] CALC GLOBULIN (test code = 2.8 G/DL 224) CALC A/G RATIO (test code = 1.9 RATIO 223) BILIRUBIN, TOTAL (test code = 0.2 MG/DL 2206) ALKALINE PHOSPHATASE (test 99 U/L code = 2204) AST (test code = 2218) 15 U/L ALT (test code = 2219) 20 U/L LIPID [id number] 00:00:00 Test Item Value Reference Range Interpretation Comments CHOLESTEROL (test code = 2210) 261 MG/DL TRIGLYCERIDES (test code = 2232) 165 MG/DL HDL CHOLESTEROL (test code = 2220) 58 MG/DL CALC LDL CHOL (test code = 2237) 170 MG/DL RISK RATIO LDL/HDL (test code = 2.93 RATIO 2238) CBC W/AUTO [id number] 00:00:00 Test Item Value Reference Range Interpretation [...] code = 1015) 378 K/UL CBC W/AUTO [id number] 00:00:00 Test Item Value Reference Range Interpretation [...] (test code = 1015) 378 K/UL HEMOGLOBIN [id number] 00:00:00 Test Item Value Reference Range Interpretation Comments HEMOGLOBIN A1c (test code = 42596) 6.4 % HEMOGLOBIN [id number] 00:00:00 Test Item Value Reference Range Interpretation Comments HEMOGLOBIN A1c (test code = 96977) 6.4 % [id number] 00:00:00 Test Item Value Reference Range Interpretation Comments TSH (test code = 2821) 5.290 UIU/ML [id number] 00:00:00 Test Item Value Reference Range Interpretation Comments TSH (test code = 2821) 5.290 UIU/ML LIPID [id number] 00:00:00 Test Item Value Reference Range Interpretation Comments CHOLESTEROL (test code = 2210) 261 MG/DL TRIGLYCERIDES (test code = 2232) 165 MG/DL HDL CHOLESTEROL (test code = 2220) 58 MG/DL CALC LDL CHOL (test code = 2237) 170 MG/DL RISK RATIO LDL/HDL (test code = 2.93 RATIO 2238) LIPID [id number] 00:00:00 Test Item Value Reference Range Interpretation Comments CHOLESTEROL (test code = 2210) 261 MG/DL TRIGLYCERIDES (test code = 2232) 165 MG/DL HDL CHOLESTEROL (test code = 2220) 58 MG/DL CALC LDL CHOL (test code = 2237) 170 MG/DL RISK RATIO LDL/HDL (test code = 2.93 RATIO 2238) CBC W/AUTO [id number] 00:00:00 Test Item Value Reference Range Interpretation [...] code = 1015) 378 K/UL CBC W/AUTO [id number] 00:00:00 Test Item Value Reference Range Interpretation [...] code = 1015) 378 K/UL CBC W/AUTO [id number] 00:00:00 Test Item Value Reference Range Interpretation [...] (test code = 1015) 378 K/UL HEMOGLOBIN [id number] 00:00:00 Test Item Value Reference Range Interpretation Comments HEMOGLOBIN A1c (test code = 54210) 6.4 % HEMOGLOBIN [id number] 00:00:00 Test Item Value Reference Range Interpretation Comments HEMOGLOBIN A1c (test code = 25092) 6.4 % HEMOGLOBIN [id number] 00:00:00 Test Item Value Reference Range Interpretation Comments HEMOGLOBIN A1c (test code = 59673) 6.4 % [id number] 00:00:00 Test Item Value Reference Range Interpretation Comments TSH (test code = 2821) 5.290 UIU/ML [id number] 00:00:00 Test Item Value Reference Range Interpretation Comments TSH (test code = 2821) 5.290 UIU/ML [id number] 00:00:00 Test Item Value Reference Range Interpretation Comments TSH (test code = 2821) 5.290 UIU/ML THYROID II PROFILE (T3U, T4, T7, TSH)[id number] 00:00:00 Test Item Value Reference Range Interpretation Comments T3 UPTAKE (test code = 2817) 32.3 % T4 (THYROXINE) (test code = 5.2 UG/DL 2818) CALCULATED T7 (FTI) (test code = 1.68 [...] code = 2821) 1.030 UIU/ML COMPREHENSIVE METABOLIC [id number] 00:00:00 Test Item Value Reference Range Interpretation Comments GLUCOSE (test code = 2217) 106 MG/DL BUN (test code = 2208) 23 MG/DL CREATININE (test code = 2214) 0.66 MG/DL eGFR AMER. (test code 114 ML/MIN/1.73 = 54999) eGFR NON- AMER. (test 99 ML/MIN/1.73 code = 10068) CALC BUN/CREAT (test code = 35 RATIO 2235) SODIUM (test code = 2231) 138 MEQ/L POTASSIUM (test code = 2228) 5.1 MEQ/L CHLORIDE (test code = 2215) 96 MEQ/L CARBON DIOXIDE (test code = 27 MEQ/L 6) CALCIUM (test code = 2209) 9.6 MG/DL [...] code = 2821) 0.335 UIU/ML COMPREHENSIVE METABOLIC [id number] 00:00:00 Test Item Value Reference Range Interpretation Comments GLUCOSE (test code = 2217) 106 MG/DL BUN (test code = 2208) 23 MG/DL CREATININE (test code = 2214) 0.66 MG/DL eGFR AMER. (test code 114 ML/MIN/1.73 = 63903) eGFR NON- AMER. (test 99 ML/MIN/1.73 code = 43513) CALC BUN/CREAT (test code = 35 RATIO [...] code = 2219) 31 U/L COMPREHENSIVE METABOLIC [id number] 00:00:00 Test Item Value Reference Range Interpretation Comments GLUCOSE (test code = 2217) 106 MG/DL BUN (test code = 2208) 23 MG/DL CREATININE (test code = 2214) 0.66 MG/DL eGFR AMER. (test code 114 ML/MIN/1.73 = 28817) eGFR NON- AMER. (test 99 ML/MIN/1.73 code = 83442) CALC BUN/CREAT (test code = 35 RATIO [...] code = 2821) 0.335 UIU/ML COMPREHENSIVE METABOLIC [id number] 00:00:00 Test Item Value Reference Range Interpretation Comments GLUCOSE (test code = 2217) 103 MG/DL BUN (test code = 2208) 15 MG/DL CREATININE (test code = 2214) 0.77 MG/DL eGFR AMER. (test code 101 ML/MIN/1.73 = 83905) eGFR NON- AMER. (test 87 ML/MIN/1.73 code = 42576) CALC BUN/CREAT (test code = 19 RATIO [...] code = 2821) 0.424 UIU/ML COMPREHENSIVE METABOLIC [id number] 00:00:00 Test Item Value Reference Range Interpretation Comments GLUCOSE (test code = 2217) 103 MG/DL BUN (test code = 2208) 15 MG/DL CREATININE (test code = 2214) 0.77 MG/DL eGFR AMER. (test code 101 ML/MIN/1.73 = 82657) eGFR NON- AMER. (test 87 ML/MIN/1.73 code = 09778) CALC BUN/CREAT (test code = 19 RATIO [...] code = 2219) 24 U/L COMPREHENSIVE METABOLIC [id number] 00:00:00 Test Item Value Reference Range Interpretation Comments GLUCOSE (test code = 2217) 103 MG/DL BUN (test code = 2208) 15 MG/DL CREATININE (test code = 2214) 0.77 MG/DL eGFR AMER. (test code 101 ML/MIN/1.73 = 46204) eGFR NON- AMER. (test 87 ML/MIN/1.73 code = 09500) CALC BUN/CREAT (test code = 19 RATIO [...] (test code = 2821) 0.424 UIU/ML CULTURE, [id number] 00:00:00 Test Item Value Reference Range Interpretation Comments CULTURE, URINE (test SPECIMEN NUMBER: code = 28996) [id number] CULTURE, [id number] 00:00:00 Test Item Value Reference Range Interpretation Comments CULTURE, URINE (test SPECIMEN NUMBER: code = 18383) [id number] CULTURE, [id number] 00:00:00 Test Item Value Reference Range Interpretation Comments CULTURE, URINE (test SPECIMEN NUMBER: code = 70435) [id number] CULTURE, [id number] 00:00:00 Test Item Value Reference Range Interpretation Comments CULTURE, URINE (test SPECIMEN NUMBER: code = 16479) [id number] CULTURE, [id number] 00:00:00 Test Item Value Reference Range Interpretation Comments CULTURE, URINE (test SPECIMEN NUMBER: code = 53694) [id number] CULTURE, [id number] 00:00:00 Test Item Value Reference Range Interpretation Comments CULTURE, URINE (test SPECIMEN NUMBER: code = 87720) [id number]
[2022-01-06] MEDS ORDERED: NA CHLORIDE 0.9% 1,000 ML ONE (13:14)
[2022-01-06 13:39] LABS: Absolute Lymphocytes (CBC) 2.5 K/uL (0.7-4.9); Hematocrit 37.3 % (36.0-45.0); MCV 92.5 fL (80-100); MPV 6.6 fL (7.6-11.3); RBC Red Blood Cell Count 4.03 M/uL (3.86-4.86)
[2022-01-06 13:53] LABS: ALT/SGPT 68 U/L (12-78); AST/SGOT 19 U/L (15-37); Albumin 3.8 g/dL (3.4-5.0); Alkaline Phosphatase 117 U/L (45-117); BUN Blood Urea Nitrogen 15 mg/dL (7-18); Bicarbonate 28 mmol/L (21-32); Glomerular Filtration Rate 98 ml/min (=/>90); Glucose Level 144 mg/dL (74-106); Lipase 123 U/L (73-393); Potassium 3.8 mmol/L (3.5-5.1); Protein, Total 7.9 g/dL (6.4-8.2); Sodium Level 134 mmol/L (136-145)
[2022-01-06 13:56] LABS: Bilirubin Total < 0.1 mg/dL (0.2-1.0)
--- NOTE | 2022-01-06 14:11 | ER ---
Nurse's Notes [facility] Name: Jaimie Amanda Age: 61 yrs Sex: Female : 1960 Arrival Date: 01/06/2022 Time: 12:56 Bed 20 Private MD: Diagnosis: Abdominal pain, Generalized;Upper abdominal pain, unspecified Presentation: 01/06 13:02 Chief complaint: Patient states: Pt reports right upper and lower quadrant pain x2 kb3 days. Denies N/V/D. Coronavirus screen: Vaccine status: Patient reports receiving the 2nd dose of the covid vaccine. Client denies travel out of the [place] in the last 14 days. Ebola Screen: Patient negative for fever greater than or equal to 101.5 degrees Fahrenheit, and additional compatible Ebola Virus Disease symptoms Patient denies exposure to infectious person. Patient denies travel to an Ebola-affected area in the 21 days before illness onset. Initial Sepsis Screen: Does the patient meet any 2 criteria? No. Patient's initial sepsis screen is negative. Does the patient have a suspected source of infection? No. Patient's initial sepsis screen is negative. Risk Assessment: Do you want to hurt yourself or someone else? Patient reports no desire to harm self or others. Onset of symptoms was January 04, 2022. 13:02 Method Of Arrival: Ambulatory kb3 13:02 Acuity: ZHEN 3 kb3 Triage Assessment: 13:03 General: Appears in no apparent distress. Behavior is calm, cooperative. Pain: kb3 Complains of pain in right upper quadrant and right lower quadrant Pain does not radiate. Pain currently is 5 out of 10 on a pain scale. Quality of pain is described as aching. GI: Reports lower abdominal pain, upper abdominal pain, bloating. Historical: - Allergies: 13:03 No Known Allergies; kb3 - PMHx: 13:03 Alcoholism; Anxiety; Hypertensive disorder; Hypothyroidism; low NA; kb3 - PSHx: 13:03 Thyroidectomy; kb3 - Immunization history:: Adult Immunizations up to date, Client reports receiving the 2nd dose of the Covid vaccine, Last tetanus immunization: up to date. - Social history:: Smoking status: Patient reports the use of cigarette tobacco products, smokes one-half pack cigarettes per day, Reported history of juuling and/or vaping. Screenin:07 Abuse screen: Denies threats or abuse. Nutritional screening: No deficits noted. em6 Tuberculosis screening: No symptoms or risk factors identified. Fall Risk Total Rubio Fall Scale indicates No Risk (0-24 pts). Assessment: 13:05 General: Appears comfortable, Behavior is cooperative. Pain: Complains of pain in em6 abdomen and right lower quadrant and right upper quadrant Pain does not radiate. Pain currently is 9 out of 10 on a pain scale. Quality of pain is described as sharp, Pain began 2-3 days ago. Neuro: Level of Consciousness is awake, alert, obeys commands, Oriented to person, place, time, situation. Cardiovascular: Heart tones present Patient's skin is warm and dry. Respiratory: Airway is patent Respiratory effort is even, unlabored, Respiratory pattern is regular, symmetrical, Breath sounds are clear bilaterally. GI: Abdomen is round Bowel sounds present X 4 quads. Abdomen is tender to palpation in right upper quadrant and right lower quadrant Reports nausea. : No signs and/or symptoms were reported regarding the genitourinary system. EENT: No signs and/or symptoms were reported regarding the EENT system. Derm: No signs and/or symptoms reported regarding the dermatologic system. Musculoskeletal: Circulation, motion, and sensation intact. Range of motion: intact in all extremities. 14:03 Reassessment: No changes from previously documented assessment. Patient and/or family em6 updated on plan of care and expected duration. Pain level reassessed. Patient is alert, oriented x 3, equal unlabored respirations, skin warm/dry/pink. Vital Signs: 13:02 BP 142 / 77; Pulse 82; Resp 18; Temp 98; Pulse Ox 98% ; Weight 67.59 kg; Height 5 ft. 7 kb3 in. (170.18 cm); Pain 5/10; 13:40 BP 113 / 91 Supine; Pulse 77; Resp 18; Pulse Ox 99% on R/A; em6 13:40 BP 136 / 78 Sitting; Pulse 81; Resp 16; Pulse Ox 99% on R/A; em6 13:40 BP 130 / 82 Standing; Pulse 78; Resp 16; Pulse Ox 98% on R/A; em6 13:02 Body Mass Index 23.34 (67.59 kg, 170.18 cm) kb3 ED Course: 12:56 Patient arrived in ED. as 12:57 Marline Marley, RN is Primary Nurse. em6 13:03 Tera Raymond MD is Attending Physician. kdr 13:03 Triage completed. kb3 13:03 Arm band placed on right wrist. Patient placed in an exam room, on a stretcher. kb3 13:07 Bed in low position. Call light in reach. Side rails up X 1. Pulse ox on. NIBP on. Warm em6 blanket given. 13:39 CBC with Diff Sent. em6 13:39 CMP Sent. em6 13:39 Lipase Sent. em6 13:41 Inserted saline lock: 22 gauge in left antecubital area, using aseptic technique. Blood em6 collected. 14:20 No provider procedures requiring assistance completed. IV discontinued, intact, em6 bleeding controlled, No redness/swelling at site. Pressure dressing applied. Administered Medications: 13:39 Drug: NS 0.9% 500 ml Route: IV; Rate: bolus; Site: left antecubital; em6 14:03 Follow up: Response: No adverse reaction; IV Status: Completed infusion; IV Intake: em6 500ml 13:39 Drug: NS 0.9% 500 ml Route: IV; Rate: 150 ml/hr; Site: left antecubital; em6 14:19 Follow up: IV Status: Order to discontinue infusion; IV Intake: 100ml em6 Medication: 14:20 VIS not applicable for this client. em6 Intake: 14:03 IV: 500ml; Total: 500ml. em6 14:19 IV: 100ml; Total: 600ml. em6 Outcome: 14:11 Discharge ordered by . kdr 14:20 Discharged to home ambulatory. em6 14:20 Condition: stable 14:20 Discharge instructions given to patient, Instructed on discharge instructions, follow up and referral plans. Demonstrated understanding of instructions, follow-up care. 14:20 Patient left the ED. em6 Signatures: Tera Raymond MD MD kdr Ada Marley Erika, RN RN em6 Samreen Duron, RN RN kb3
--- NOTE | 2022-01-06 14:11 | EDPHYS ---
Physician Documentation [facility] Name: Jaimie Amanda Age: 61 yrs Sex: Female : 1960 Arrival Date: 01/06/2022 Time: 12:56 Bed 20 Private MD: ED Physician Tera Raymond HPI: 01/06 15:07 This 61 yrs old Female presents to ER via Ambulatory with complaints of Abdominal Pain. kdr 15:07 Right upper quadrant abdominal pain which she rated as a 9 at home but a 7 here. Onset: kdr The symptoms/episode began/occurred 2 day(s) ago. Severity of symptoms: At their worst the symptoms were mild in the emergency department the symptoms are unchanged. The patient has not experienced similar symptoms in the past. The patient has experienced similar episodes in the past, multiple times, chronically. The patient has been recently seen by a physician: Patient has had about 8 visits to the ED this month. Historical: - Allergies: 13:03 No Known Allergies; kb3 - PMHx: 13:03 Alcoholism; Anxiety; Hypertensive disorder; Hypothyroidism; low NA; kb3 - PSHx: 13:03 Thyroidectomy; kb3 - Immunization history:: Adult Immunizations up to date, Client reports receiving the 2nd dose of the Covid vaccine, Last tetanus immunization: up to date. - Social history:: Smoking status: Patient reports the use of cigarette tobacco products, smokes one-half pack cigarettes per day, Reported history of juuling and/or vaping. ROS: 15:07 Constitutional: Negative for fever, chills, and weight loss, Eyes: Negative for injury, kdr pain, redness, and discharge, Neck: Negative for injury, pain, and swelling, Cardiovascular: Negative for chest pain, palpitations, and edema, Respiratory: Negative for shortness of breath, cough, wheezing, and pleuritic chest pain, Abdomen/GI: Negative for abdominal pain, nausea, vomiting, diarrhea, and constipation, Back: Negative for injury and pain, MS/Extremity: Negative for injury and deformity, Skin: Negative for injury, rash, and discoloration. Exam: 15:10 Constitutional: This is a well developed, well nourished patient who is awake, alert, kdr and in no acute distress. Head/Face: Normocephalic, atraumatic. Eyes: Pupils equal round and reactive to light, extra-ocular motions intact. Lids and lashes normal. Conjunctiva and sclera are non-icteric and not injected. Cornea within normal limits. Periorbital areas with no swelling, redness, or edema. Neck: Trachea midline, no thyromegaly or masses palpated, and no cervical lymphadenopathy. Supple, full range of motion without nuchal rigidity, or vertebral point tenderness. No Meningismus. Chest/axilla: Normal chest wall appearance and motion. Nontender with no deformity. No lesions are appreciated. Cardiovascular: Regular rate and rhythm with a normal S1 and S2. No gallops, murmurs, or rubs. Normal PMI, no JVD. No pulse deficits. Respiratory: Lungs have equal breath sounds bilaterally, clear to auscultation and percussion. No rales, rhonchi or wheezes noted. No increased work of breathing, no retractions or nasal flaring. Back: No spinal tenderness. No costovertebral tenderness. Full range of motion. Skin: Warm, dry with normal turgor. Normal color with no rashes, no lesions, and no evidence of cellulitis. MS/ Extremity: Pulses equal, no cyanosis. Neurovascular intact. Full, normal range of motion. Vital Signs: 13:02 BP 142 / 77; Pulse 82; Resp 18; Temp 98; Pulse Ox 98% ; Weight 67.59 kg; Height 5 ft. 7 kb3 in. (170.18 cm); Pain 5/10; 13:40 BP 113 / 91 Supine; Pulse 77; Resp 18; Pulse Ox 99% on R/A; em6 13:40 BP 136 / 78 Sitting; Pulse 81; Resp 16; Pulse Ox 99% on R/A; em6 13:40 BP 130 / 82 Standing; Pulse 78; Resp 16; Pulse Ox 98% on R/A; em6 13:02 Body Mass Index 23.34 (67.59 kg, 170.18 cm) kb3 MDM: 14:11 Patient medically screened. kdr 15:09 Data reviewed: EMS record. kdr 01/06 13:08 Order name: CBC with Diff; Complete Time: 14:11 kdr 01/06 13:08 Order name: CMP; Complete Time: 14:11 kdr 01/06 13:08 Order name: Lipase; Complete Time: 14:11 kdr 01/06 13:08 Order name: IV Saline Lock; Complete Time: 13:39 kdr 01/06 13:08 Order name: Labs collected and sent; Complete Time: 13:39 kdr 01/06 13:09 Order name: Orthostatic Blood Pressure; Complete Time: 13:40 kdr Administered Medications: 13:39 Drug: NS 0.9% 500 ml Route: IV; Rate: bolus; Site: left antecubital; em6 14:03 Follow up: Response: No adverse reaction; IV Status: Completed infusion; IV Intake: em6 500ml 13:39 Drug: NS 0.9% 500 ml Route: IV; Rate: 150 ml/hr; Site: left antecubital; em6 14:19 Follow up: IV Status: Order to discontinue infusion; IV Intake: 100ml em6 Disposition Summary: 01/06/22 14:11 Discharge Ordered Location: Home kdr Problem: new kdr Symptoms: have improved kdr Condition: Stable kdr Diagnosis - Abdominal pain, Generalized kdr - Upper abdominal pain, unspecified kdr Followup: kdr - With: Private Physician - When: 2 - 3 days - Reason: If symptoms return, Further diagnostic work-up, Recheck today's complaints, Continuance of care, Re-evaluation by your physician Discharge Instructions: - Discharge Summary Sheet kdr - Abdominal Pain, Adult, [id number] kdr Forms: - Medication Reconciliation Form kdr - Thank You Letter kdr Signatures: Dispatcher [employer] Tera Calderon MD MD kdr Marline Marley, RN RN em6 Samreen Duron RN RN kb3
[2022-01-06 14:26] VITALS: TEMP 98; O2SAT 98
[2022-01-06 14:37] VITALS: BP 130/82
== END 2022-01-06 14:20 | disposition home or self-care (01) ==
LOC: ER 12:53
DX: R10.11 Right upper quadrant pain (principal); R10.84 Generalized abdominal pain; F10.20 Alcohol dependence, uncomplicated; F17.210 Nicotine dependence, cigarettes, uncomplicated
CPT/HCPCS: 85025; 36415; 83690; 80053; 96360; 99284; J7040

== ENCOUNTER 2022-01-12 07:52 | Emergency (ER) | payer OTHER ==
--- OUTSIDE RECORDS SUMMARY | 2022-01-12 08:04 | XMS REPORT | Continuity of Care Document ---
:1960 Author Organization [facility] t Address [address] [place] [address] Care Team Providers Name Role Phone Sharpless Primary Care Physician MATT SIMPSON Attending Clinician Unavailable MATT SIMPSON Attending Clinician Unavailable Doctor Unassigned, [place] Attending Clinician Unavailable WALLY KRISHNAMURTHY Attending Clinician Unavailable Natacha Brewster Attending Clinician Payers Payer Name Policy Type Policy Number Effective Date Expiration Date Sarina castelan [facility] [id number] 2017 00:00:00 PLUS Problems This patient has [...] NITRO DRUG Active Other-Cmnt Univer s TRANSDER - ity of MAL 00:00: [place] [facility] ACETAMIN DRUG Active Other-Cmnt Univ ers OPHEN INGREDI 07-27 ity of 00:00: [place] [address] [facility] Hmg-Coa Propensi Inactiv Reductas ty to e 2-28 e adverse 00:00: Inhibito reaction 00 rs to drug Nitrogly Propensi Active 2017-03 cerin ty to 1-08 adverse 00:00: reaction 00 to drug Social History Social Habit Start Date Stop Date Quantity Comments Source Alcohol intake 2016-05-01 2016-05-01 Current [facility] es 00:00:00 00:00:00 non-drinker of Medical nter alcohol (finding) Sex Assigned At [birth year] [facility] 00:00:00 00:00:00 [facility] Smoking Status Start Date Stop Date Source Current every day smoker 2016-05-01 00:00:00 [facility] Medications Ordered Filled Start Stop Current Ordering Indication Dosage Frequency Signature Comments Components Source Medication Medication Date Date Medication? Clinician (SIG) Name Name ZOLPIDEM 2021- No TARTRATE 10 1-04 MG TABS 00:00: 00 ONDANSETRON 2021- No 4 4MG Tablets 03-12 00:00: 00 TAKE 1 2021-1 No TABLET BY 1-04 MOUTH DAILY 00:00: AT BEDTIME 00 TEMAZEPAM 2021-1 No 30 MG CAPS 03-12 00:00: 00 TAKE 1 2021-1 No TABLET BY 1-04 MOUTH EVERY 00:00: SIX HOURS 00 NEEDED VENLAFAXINE 2021-1 No HCL ER 150 1-04 MG CP24 00:00: 00 CLONIDINE 2021-1 No 3 HYDROCHLORI 1-04 DE 0.3 MG 00:00: TABS 00 CLONAZEPAM 2021-0 No 1 MG TABS 11-19 00:00: 00 CLONAZEPAM 2021-0 No 1 MG TABS 11-19 00:00: 00 TAKE 1 2021-0 No TABLET BY 11-08 MOUTH EVERY 00:00: 12 HOURS 00 FOR 10 DAYS CLONAZEPAM 2021-0 No 2 MG TABS 11-08 00:00: 00 DICLOFENAC 2022-[address] 11-08 Tablets 00:00: 00 TAKE 2 2022-0 No 750 TABLETS BY 11-08 MOUTH THREE 00:00: TIMES DAILY 00 NEEDED TAKE 1 2022-0 No TABLET BY 11-08 MOUTH EVERY 00:00: 12 HOURS 00 FOR 10 DAYS CLONAZEPAM 2022-0 No 2 MG TABS 11-08 00:00: 00 DICLOFENAC 2022-[address] 11-08 Tablets 00:00: 00 TAKE 2 2022-0 No 750 TABLETS BY 11-08 MOUTH THREE 00:00: TIMES DAILY 00 NEEDED losartan 2022-0 No 1mg 100 7-12 mg-hydrochl [...] 1mg 12.5 mg 7-12 tablet 00:00: 00 Dose 2022-0 No Unknown 5-26 00:00: 00 clonidine 2022-0 No 1mg HCl [...] HCl 0.3 mg 4-20 tablet 00:00: 00 Dose 2022-0 No Unknown [...] Dose 1-1 No Unknown 2-08 00:00: 00 Dose 1-1 No Unknown 2-08 00:00: 00 losartan 1-1 No 1mg 100 0-19 mg-hydrochl 00:00: orothiazide 00 25 mg tablet Dose 1-1 No Unknown 0-19 00:00: 00 levothyroxi 2021-1 No 1mcg ne 137 mcg 0-19 tablet 00:00: 00 losartan 1-1 No 1mg 100 0-19 mg-hydrochl 00:00: orothiazide 00 25 mg tablet Dose 2020-1 No Unknown 0-19 00:00: 00 levothyroxi 1-1 [...] 137 mcg 8-27 tablet 00:00: 00 levothyroxi 1-0 No 1mcg ne 137 mcg 8-27 tablet 00:00: 00 levothyroxi 1-0 No 1mcg ne 137 mcg 8-27 tablet 00:00: 00 liothyronin 1-0 No 1mcg e 5 mcg 8-26 tablet 00:00: 00 liothyronin 1-0 No 1mcg e 5 mcg 8-26 tablet 00:00: 00 liothyronin 1-0 No 1mcg e 5 mcg 8-26 tablet 00:00: 00 losartan 1-0 No 1mg 100 8-19 mg-hydrochl 00:00: orothiazide 00 25 mg tablet losartan 1-0 No 1mg 100 8-19 mg-hydrochl 00:00: orothiazide 00 25 mg tablet losartan 1-0 No 1mg 100 8-19 mg-hydrochl [...] 00:00: 00 fluticasone 2021-0 No 2mcg/ac propionate 8- tuation 50 00:00: mcg/actuati 00 on nasal [...] 5 mcg 3-16 tablet 00:00: 00 sulfamethox 2021-0 No 1mg azole 800 1-14 mg-trimetho 00:00: [...] m 00 clavulanate 125 mg tablet liothyronin 2020-0 No 1mcg e 5 mcg 1-05 tablet 00:00: 00 levothyroxi 2020-0 No 1mcg ne 125 mcg 1-05 tablet 00:00: 00 indomethaci 1-0 No 1mg n 50 mg 1-05 capsule 00:00: 00 amoxicillin 2020-0 No 1mg 875 1-05 mg-potassiu 00:00: m 00 clavulanate 125 mg tablet liothyronin 2020-0 No 1mcg e 5 mcg 1-05 tablet 00:00: 00 levothyroxi 2020-0 No 1mcg ne 125 mcg 1-05 tablet 00:00: 00 indomethaci 1-0 No 1mg n 50 mg 1-05 capsule 00:00: 00 amoxicillin 2020-0 No 1mg 875 1-05 mg-potassiu 00:00: m 00 clavulanate 125 mg tablet liothyronin 2020-0 No 1mcg e 5 mcg 1-05 tablet 00:00: 00 levothyroxi 1-0 No 1mcg ne 125 mcg 1-05 tablet 00:00: 00 indomethaci 1-0 No 1mg n 50 mg 1-05 capsule 00:00: 00 metformin 2019-1 No 1mg ER 500 mg 2-31 tablet,exte 00:00: nded 00 release 24 hr metformin 2019-1 No 1mg ER 500 mg 2-31 tablet,exte 00:00: nded 00 release 24 hr metformin 2020-1 No 1mg ER 500 mg 2-31 tablet,exte 00:00: nded 00 release 24 hr clonidine 2019-1 No 1mg HCl 0.2 mg [...] 00:00: orothiazide 00 25 mg tablet ondansetron 2019- No 1mg 4 mg 2-04 disintegrat 00:00: [...] 5 mcg 0-08 tablet 00:00: 00 losartan 2019-0 No 1mg 100 9-18 mg-hydrochl 00:00: orothiazide 00 25 mg tablet metformin 2019-0 No 1mg ER 500 mg 9-18 tablet,exte [...] ne 137 mcg 3-27 tablet 00:00: 00 trazodone 2020-0 No 1mg [...] 1mg 600 mg 3-26 tablet 00:00: 00 ondansetron 2020-0 No mg [...] 00:00: orothiazide 00 25 mg tablet losartan 2020-0 No 1mg 100 1-22 mg-hydrochl [...] ne 137 mcg 1-22 tablet 00:00: 00 pantoprazol 2020-0 No 1mg e 40 mg 1-22 tablet,mali 00:00: yed release 00 liothyronin 2020-0 No 1mcg e 5 mcg 1-22 tablet 00:00: 00 omeprazole 2020-0 No 1mg 20 mg 1-22 capsule,del 00:00: ayed 00 release clonidine 2020-0 No 1mg HCl 0.2 mg [...] mcg 2-26 tablet 00:00: 00 Flagyl 500 2018-1 No 1mg mg tablet 1-13 00:00: 00 Flagyl 500 2018-1 No 1mg mg tablet 1-13 00:00: 00 Flagyl 500 2018-1 No 1mg mg tablet 1-13 00:00: 00 [...] 2019-0 No 1mg e 40 mg 6-10 tablet,mail 00:00: yed release 00 clonidine 2019-0 No [...] levothyroxi 2018-0 No 1mcg ne 137 mcg 11-09 tablet 00:00: 00 levothyroxi 2018-0 No 1mcg ne 150 mcg 11-04 tablet 00:00: 00 levothyroxi 2018-0 No 1mcg ne 150 mcg 11-04 tablet 00:00: 00 levothyroxi 2018-0 No 1mcg ne 150 mcg 8 tablet 00:00: 00 amlodipine 2018-0 No 1mg 5 mg tablet 11-03 00:00: 00 amlodipine 2018-0 No 1mg 5 mg tablet 11-03 00:00: 00 levothyroxi 2018-0 No 1mcg ne 150 mcg 11-03 tablet 00:00: 00 amlodipine 2018-0 No 1mg 5 mg tablet 11-03 00:00: 00 amlodipine 2018-0 No 1mg 5 mg tablet 11-03 00:00: 00 levothyroxi 2018-0 No 1mcg ne 150 mcg 11-03 tablet 00:00: 00 amlodipine 2018-0 No 1mg 5 mg tablet 11-03 00:00: 00 amlodipine 2018-0 No 1mg 5 mg tablet 11-03 00:00: 00 levothyroxi 2018-0 No 1mcg ne 150 mcg 11-03 tablet 00:00: 00 amlodipine 2018-0 No 1mg 5 mg tablet 09-22 00:00: 00 ondansetron 2018-0 No 1mg HCl 4 mg 7-17 tablet 00:00: 00 levothyroxi 2018-0 No 1mcg ne 150 mcg 7-17 tablet 00:00: 00 amlodipine 2018-0 No 1mg 5 mg tablet 09-22 00:00: 00 ondansetron 2018-0 No 1mg HCl 4 mg 7-17 tablet 00:00: 00 levothyroxi 2018-0 No 1mcg ne 150 mcg 7-17 tablet 00:00: 00 amlodipine 2018-0 No 1mg 5 mg tablet 09-22 00:00: 00 ondansetron 2018-0 No 1mg HCl [...] 40 mg 1-15 tablet 00:00: 00 paroxetine 2016-1 No 1mg 40 mg 1-15 tablet 00:00: 00 risperidone 2016-1 No 1mg 1 mg tablet 1-15 00:00: 00 Trileptal 2016-1 No 1mg 600 mg 1-15 tablet 00:00: 00 mirtazapine 2016-1 No 1mg 30 mg 1-15 tablet 00:00: 00 levothyroxi 2017-1 No 1mcg ne 150 mcg 0-24 tablet 00:00: 00 levothyroxi 2017-1 No 1mcg ne 150 mcg 0-24 tablet 00:00: 00 levothyroxi 2017-1 No 1mcg ne 150 mcg 0-24 tablet 00:00: 00 risperidone 2017-0 No 1mg 1 mg tablet 7 00:00: 00 Trileptal 2017-0 No 1mg 600 mg 7-05 tablet 00:00: 00 baclofen 10 2017-0 No 1mg mg tablet 7 00:00: 00 hydroxyzine 2017-0 No 1mg pamoate 50 7-05 mg capsule 00:00: 00 risperidone 2017-0 No 1mg 1 mg tablet 7- 00:00: 00 Trileptal 2017-0 No 1mg 600 mg 7-05 tablet 00:00: 00 baclofen 10 2016-0 No 1mg mg tablet 7 00:00: 00 hydroxyzine 2017-0 No 1mg pamoate 50 7-05 mg capsule 00:00: 00 risperidone 2017-0 No 1mg 1 mg tablet 09-10 00:00: 00 Trileptal 2017-0 No 1mg 600 mg 7-05 tablet 00:00: 00 baclofen 10 2017-0 No 1mg mg tablet 7 00:00: 00 hydroxyzine 2017-0 No 1mg pamoate [...] risperidone 2017-0 No 1mg 1 mg tablet 530 00:00: 00 Trileptal 2017-0 No 1mg 600 mg 5-30 tablet 00:00: 00 mirtazapine 2017-0 No 1mg 30 mg 5-30 tablet 00:00: 00 oxcarbazepi 2017-0 No 1mg ne 600 mg 5-30 tablet 00:00: 00 baclofen 10 2016-0 No 1mg mg tablet 30 00:00: 00 levothyroxi 2017-0 No 1mcg ne 150 mcg 5-30 tablet 00:00: 00 hydroxyzine 2017-0 No 1mg pamoate 50 5-30 mg capsule 00:00: 00 OXcarbazepi 2017-0 Yes 600mg Q.[id number] Take [address] [facility] ne 2-23 [id number] [facility] 10:23: 3D mouth 3 Med ical 600 MG 59 (three) Center tablet times daily. PARoxetine 2017-0 Yes 40mg QD Take [address] (PAXIL) 40 2-23 by [facility] tablet 10:23: nightly. [facility] [address] PARoxetine 2017-0 Yes 40mg QD Take [address] (PAXIL) 40 2-23 by [facility] tablet 10:23: nightly. [facility] [address] OXcarbazepi 2017-0 Yes 600mg Q.[id number] Take [address] ne 2-23 [id number] [facility] (TRILEPTAL) 10:23: 3D mouth 3 Med ical 600 MG 59 (three) Center tablet times daily. PARoxetine 2017-0 Yes 40mg QD Take [address] (PAXIL) 40 2-23 by [facility] tablet 10:23: nightly. [facility] [address] OXcarbazepi 2017-0 Yes 600mg Q.[id number] Take [address] ne 2-23 [id number] [facility] (TRILEPTAL) 10:23: 3D mouth 3 Med ical 600 MG 59 (three) Center tablet times daily. PARoxetine 2017-0 Yes 40mg QD Take [address] (PAXIL) 40 2-23 by [facility] tablet 10:23: nightly. [address] OXcarbazepi 2017-0 Yes 600mg Q.78950157 Take [address] ne 2-23 [id number] [facility] (TRILEPTAL) 10:23: 3D mouth 3 Med ical 600 MG 59 (three) Center tablet times daily. PARoxetine 2017-0 Yes 40mg QD Take [address] (PAXIL) 40 2-23 by [facility] tablet 10:23: nightly. [address] 2017-0 Yes 600mg Q.34761929 Take [address] ne 2-23 [id number] [facility] (TRILEPTAL) 10:23: 3D mouth 3 Med ical 600 MG 59 (three) Center tablet times daily. PARoxetine 2017-0 Yes 40mg QD Take [address] (PAXIL) 40 2-23 by [facility] tablet 10:23: nightly. [address] 2017-0 Yes 600mg Q.[id number] Take [address] ne 2-23 [id number] [facility] (TRILEPTAL) 10:23: 3D mouth 3 Med ical 600 MG 59 (three) Center tablet times daily. PARoxetine 2017-0 Yes 40mg QD Take [address] (PAXIL) 40 2-23 by [facility] tablet 10:23: nightly. [address] OXcarbazepi 2017-0 Yes 600mg Q.53134489 Take [address] ne 2-23 [id number] [facility] (TRILEPTAL) 10:23: 3D mouth 3 Med ical 600 MG 59 (three) Center tablet times daily. PARoxetine 2017-0 Yes 40mg QD Take [address] (PAXIL) 40 2-23 by [facility] tablet 10:23: nightly. [address] 2017-0 Yes 600mg Q.[id number] Take [address] ne 2-23 [id number] [facility] (TRILEPTAL) 10:23: 3D mouth 3 Med ical 600 MG 59 (three) Center tablet times daily. PARoxetine 2017-0 Yes 40mg QD Take [address] (PAXIL) 40 2-23 by mouth [facility] tablet 10:23: nightly. [facility] [address] OXcarbazepi 2017-0 Yes 600mg Q.43413579 Take [address] ne 2-23 [id number] [facility] (TRILEPTAL) 10:23: 3D mouth 3 Med ical 600 MG 59 (three) Center tablet times daily. PARoxetine 2017-0 Yes 40mg QD Take [address] (PAXIL) 40 2-23 by mouth [facility] tablet 10:23: nightly. [facility] [address] OXcarbazepi 2017-0 Yes 600mg Q.73408236 Take [address] ne 2-23 [id number] [facility] (TRILEPTAL) 10:23: 3D mouth 3 Med ical 600 MG 59 (three) Center tablet times daily. LORazepam 2017-0 Yes 1mg Take 1 [facility] [...] Time Observation Value Comments Source BP Systolic 2022-01-10 09:27:00 177 mm[Hg] BP Diastolic 2022-01-10 09:27:00 94 mm[Hg] Weight Measured 2022-01-10 09:27:00 163.80 pounds Height Measured 2022-01-10 09:27:00 66.00 inches Body Temperature 2022-01-10 09:27:00 97.60 degrees Heart Rate 2022-01-10 09:27:00 79.00 /min Respiratory Rate 2022-01-10 09:27:00 18.00 /min BP Systolic 2021-09-17 09:00:00 178 mm[Hg] BP [...] Goal Plan of Care Note [code = 66914-9] Goal Plan of Care Note [code = 60409-2] Goal Plan of Care Note [code = 03895-5] Goal Plan of Care Note [code = 76209-3] Goal Plan of Care Note [code = 31902-1] Goal Plan of Care Note [code = 87898-6] Goal Plan of Care Note [code = 40740-1] Goal Plan of Care Note [code = 87029-4] Goal Plan of Care Note [code = 54396-7] Goal Plan of Care Note [code = 73316-1] Goal Plan of Care Note [code = 24553-9] Goal Plan of Care Note [code = 55799-1] Goal Plan of Care Note [code = 58140-3] Goal Plan of Care Note [code = 19171-6] Goal Plan of Care Note [code = 36605-8] Goal Plan of Care Note [code = 30572-1] Goal Plan of Care Note [code = 94717-7] Goal Plan of Care Note [code = 53080-1] Goal Plan of Care Note [code = 18726-7] Goal Plan of Care Note [code = 02795-4] Goal Plan of Care Note [code = 21454-3] Goal Plan of Care Note [code = 82023-0] Goal Plan of Care Note [code = 40988-9] Goal Plan of Care Note [code = 38377-1] Goal Plan of Care Note [code = 94265-1] Goal Plan of Care Note [code = 26563-2] Goal Plan of Care Note [code = 14225-5] Goal Plan of Care Note [code = 95680-5] Goal Plan of Care Note [code = 93319-1] Goal Plan of Care Note [code = 06190-0] Goal Plan of Care Note [code = 05229-7] Goal Plan of Care Note [code = 34879-7] Goal Plan of Care Note [code = 19199-5] Goal Plan of Care Note [code = 45197-3] Goal Plan of Care Note [code = 81643-0] Goal Plan of Care Note [code = 32328-4] Goal Plan of Care Note [code = 12392-6] Goal Plan of Care Note [code = 59716-8] Goal Plan of Care Note [code = 74064-5] Goal Plan of Care Note [code = 81966-2] Goal Plan of Care Note [code = 56545-9] Goal Plan of Care Note [code = 68320-8] Goal Plan of Care Note [code = 28056-6] Goal Plan of Care Note [code = 71691-5] Goal Plan of Care Note [code = 14027-6] Goal Plan of Care Note [code = 37038-7] Goal Plan of Care Note [code = 76331-4] Goal Plan of Care Note [code = 83825-7] Goal Plan of Care Note [code = 02972-7] Goal Plan of Care Note [code = 57176-4] Goal Plan of Care Note [code = 61993-6] Goal Plan of Care Note [code = 91439-0] Goal Plan of Care Note [code = 30034-8] Goal Plan of Care Note [code = 83623-2] Goal Plan of Care Note [code = 19078-8] Goal Plan of Care Note [code = 13723-8] Goal Plan of Care Note [code = 12962-9] Goal Plan of Care Note [code = 74203-4] Goal Plan of Care Note [code = 06993-0] Goal Plan of Care Note [code = 13910-7] Goal Plan of Care Note [code = 46940-8] Goal Plan of Care Note [code = 08081-1] Goal Plan of Care Note [code = 96587-2] Goal Plan of Care Note [code = 83511-5] Goal Plan of Care Note [code = 57503-8] Goal Plan of Care Note [code = 27302-8] Goal Plan of Care Note [code = 71832-5] Goal Plan of Care Note [code = 31713-3] Goal Plan of Care Note [code = 25475-1] Goal Plan of Care Note [code = 54978-0] Goal Plan of Care Note [code = 86728-5] Goal Plan of Care Note [code = 49184-7] Goal Plan of Care Note [code = 31258-0] Goal Plan of Care Note [code = 07469-2] Goal Plan of Care Note [code = 43535-3] Goal Plan of Care Note [code = 05538-4] Goal Plan of Care Note [code = 79794-9] Goal Plan of Care Note [code = 67124-4] Goal Plan of Care Note [code = 98430-7] Goal Plan of Care Note [code = 43145-5] Goal Plan of Care Note [code = 75524-1] Goal Plan of Care Note [code = 48357-8] Goal Plan of Care Note [code = 22052-7] Goal Plan of Care Note [code = 36301-2] Goal Plan of Care Note [code = 09205-2] Goal Plan of Care Note [code = 90138-7] Goal Plan of Care Note [code = 55757-5] Goal Plan of Care Note [code = 71598-7] Goal Plan of Care Note [code = 20616-5] Goal Plan of Care Note [code = 95505-9] Goal Plan of Care Note [code = 60123-6] Goal Plan of Care Note [code = 92234-1] Goal Plan of Care Note [code = 13291-2] Goal Plan of Care Note [code = 67102-4] Goal Plan of Care Note [code = 69755-3] Goal Plan of Care Note [code = 98397-0] Goal Plan of Care Note [code = 66301-4] Goal Plan of Care Note [code = 78587-0] Goal Plan of Care Note [code = 80951-3] Goal Plan of Care Note [code = 31934-3] Goal Plan of Care Note [code = 59128-2] Goal Plan of Care Note [code = 97916-2] Goal Plan of Care Note [code = 39029-0] Goal Plan of Care Note [code = 52494-6] Goal Plan of Care Note [code = 37783-5] Goal Plan of Care Note [code = 97533-3] Goal Plan of Care Note [code = 07420-3] Goal Plan of Care Note [code = 29040-8] Goal Plan of Care Note [code = 65976-3] Goal Plan of Care Note [code = 74746-5] Goal Plan of Care Note [code = 40530-0] Goal Plan of Care Note [code = 26532-9] Goal Plan of Care Note [code = 63441-5] Goal Plan of Care Note [code = 51704-0] Goal Plan of Care Note [code = 80451-3] Goal Plan of Care Note [code = 96814-9] Goal Plan of Care Note [code = 10900-4] Goal Plan of Care Note [code = 56572-6] Goal Plan of Care Note [code = 91672-2] Goal Plan of Care Note [code = 42232-3] Goal Plan of Care Note [code = 54081-4] Goal Plan of Care Note [code = 64697-8] Goal Plan of Care Note [code = 87743-9] Goal Plan of Care Note [code = 92136-9] Goal Plan of Care Note [code = 66659-2] Goal Plan of Care Note [code = 76831-9] Goal Plan of Care Note [code = 11224-1] Goal Plan of Care Note [code = 62353-2] Goal Plan of Care Note [code = 80568-2] Goal Plan of Care Note [code = 57716-6] Goal Plan of Care Note [code = 93671-5] Goal Plan of Care Note [code = 99464-7] Goal Plan of Care Note [code = 15537-4] Goal Plan of Care Note [code = 60759-9] Goal Plan of Care Note [code = 80435-2] Goal Plan of Care Note [code = 85327-0] Goal Plan of Care Note [code = 85641-2] Goal Plan of Care Note [code = 21530-6] Goal Plan of Care Note [code = 30001-0] Goal Plan of Care Note [code = 44199-4] Goal Plan of Care Note [code = 91940-4] Goal Plan of Care Note [code = 15893-9] Goal Plan of Care Note [code = 82742-5] Goal Plan of Care Note [code = 97384-2] Goal Plan of Care Note [code = 97459-1] Goal Plan of Care Note [code = 56022-0] Goal Plan of Care Note [code = 70620-3] Goal Plan of Care Note [code = 48893-5] Goal Plan of Care Note [code = 84190-4] Goal Plan of Care Note [code = 65866-0] Goal Plan of Care Note [code = 49971-6] Goal Plan of Care Note [code = 83574-5] Goal Plan of Care Note [code = 04696-3] Goal Plan of Care Note [code = 82779-9] Goal Plan of Care Note [code = 97005-6] Encounters Start End Encounter Admission Attending Care Care Encounter Source Date/Time Date/Time Type Type Clinicians Facility Department ID 2021-06-01 Outpatient [facility] [id number] [place] 01:36:29 [id number] [facility] 2022-01-10 2022-01-10 Outpatient SFA SFA [id number] 022 Cristian 09:16:14 09:16:14 1104 F Jerman 2022-01-10 2022-01-10 Outpatient [id number]- [id number] accaa6-a 00:00:00 00:00:00 Visit aca9-4c83 ca9-4c83-a -t6wt-ir5 7eb-bc13f3 [id number] f032f9 2021-12-19 2021-12-19 Outpatient SFA SFA [id number] 022 Cristian 16:11:31 16:11:31 1013 F Jerman 2021-12-19 2021-12-19 Outpatient [id number] 00:00:00 00:00:00 Visit a885-854i 770-441f-a -adae-62b amelia-62bace hgvda25jx fd81af 2021-09-17 2021-09-17 Outpatient egg1fjjl- [id number] j3rscq-8 00:00:00 00:00:00 Visit 935a-4f50 35a-4f50-b -k01x-j9n 77d-c2ba85 [id number] 1264a6 2020-08-03 2020-08-03 Outpatient Bertin MATT SIMPSON [facility] [id number] [facility] 10:00:00 10:00:00 MATT SIMPSON [facility] 2020-07-25 2020-07-25 Orders Doctor ABE [id number] 00:00:00 00:00:00 Only Unassigned, BK 350.1.13.10 [facility] 4.2.7.2.686 [id number] 2019-09-26 2019-09-26 Outpatient Bertin KRISHNAMURTHY [facility] [id number] Univers 16:00:00 16:00:00 WALLY [facility] 2018-10-21 2018-10-21 Telephone Gramm, [facility] [id number] 00:00:00 00:00:00 Natacha Nguyen 350.1.13.10 Ade 4.2.7.2.686 Proffarzanehio [id number] [facility] 204 [facility] Results Test Description Test Time Test Comments Results Result Comments Source TSH, THIRD GENERATION 2021-06-27 05:15:49 Test Item Value Reference Range Interpretation Comme nts TSH, THIRD GENERATION (test code = 2821) 2.080 UIU/ML 0.400-4.100 HEMOGLOBIN [id number] 03:46:00 Test Item Value Reference Range Interpretation Comments HEMOGLOBIN A1c (test 6.6 % 4.2-5.6 H [employer]ETES code = 80784) ASSOCIATION IDELINES FOR HGB A1C: PREDIABETES/INC REASED [...] INDICATED, ALL TESTING PER FORMED ATCLINICAL PATH [facility], [place] [place], [place] [address] LABORATORY DIRE CTOR: DIANA RUSS M.D. CLIA NUMBER [id number] [place] [id number] LIPID [id number] 02:59:52 Test Item Value Reference Range Interpretation [...] MOREINFORMATION , SEE CLIENT ANNOUNCE MENT AT [email or web address] RISK RATIO LDL/HDL 4.02 RATIO <3.22 H (test code = 2238) [id number] 00:00:00 Test Item Value Reference Range Interpretation Comments TSH, THIRD GENERATION (test code 2.080 UIU/ML = 2821) [id number] 00:00:00 Test Item Value Reference Range Interpretation Comments TSH, THIRD GENERATION (test code 2.080 UIU/ML = 2821) [id number] 00:00:00 Test Item Value Reference Range Interpretation Comments TSH, THIRD GENERATION (test code 2.080 UIU/ML = 2821) LIPID [id number] 00:00:00 Test Item Value Reference Range Interpretation Comments CHOLESTEROL (test code = 2210) 292 MG/DL TRIGLYCERIDES (test code = 2232) 184 MG/DL HDL CHOLESTEROL (test code = 2220) 51 MG/DL CALC LDL CHOL (test code = 2237) 205 MG/DL RISK RATIO LDL/HDL (test code = 4.02 RATIO 2238) LIPID [id number] 00:00:00 Test Item Value Reference Range Interpretation Comments CHOLESTEROL (test code = 2210) 292 MG/DL TRIGLYCERIDES (test code = 2232) 184 MG/DL HDL CHOLESTEROL (test code = 2220) 51 MG/DL CALC LDL CHOL (test code = 2237) 205 MG/DL RISK RATIO LDL/HDL (test code = 4.02 RATIO 2238) HEMOGLOBIN [id number] 00:00:00 Test Item Value Reference Range Interpretation Comments HEMOGLOBIN A1c (test code = 97169) 6.6 % HEMOGLOBIN [id number] 00:00:00 Test Item Value Reference Range Interpretation Comments HEMOGLOBIN A1c (test code = 93505) 6.6 % HEMOGLOBIN [id number] 00:00:00 Test Item Value Reference Range Interpretation Comments HEMOGLOBIN A1c (test code = 41288) 6.6 % [id number] 00:00:00 Test Item Value Reference Range Interpretation Comments TSH, THIRD GENERATION (test code 2.080 UIU/ML = 2821) [id number] 00:00:00 Test Item Value Reference Range Interpretation Comments TSH, THIRD GENERATION (test code 2.080 UIU/ML = 2821) LIPID [id number] 00:00:00 Test Item Value Reference Range Interpretation Comments CHOLESTEROL (test code = 2210) 292 MG/DL TRIGLYCERIDES (test code = 2232) 184 MG/DL HDL CHOLESTEROL (test code = 2220) 51 MG/DL CALC LDL CHOL (test code = 2237) 205 MG/DL RISK RATIO LDL/HDL (test code = 4.02 RATIO 2238) HEMOGLOBIN [id number] 00:00:00 Test Item Value Reference Range Interpretation Comments HEMOGLOBIN A1c (test code = 57298) 6.6 % HEMOGLOBIN [id number] 00:00:00 Test Item Value Reference Range Interpretation Comments HEMOGLOBIN A1c (test code = 27978) 6.6 % [id number] 00:00:00 Test Item Value Reference Range Interpretation Comments TSH, THIRD GENERATION (test code 2.080 UIU/ML = 2821) [id number] 00:00:00 Test Item Value Reference Range Interpretation Comments TSH, THIRD GENERATION (test code 2.080 UIU/ML = 2821) [id number] 00:00:00 Test Item Value Reference Range Interpretation Comments TSH, THIRD GENERATION (test code 2.080 UIU/ML = 2821) LIPID [id number] 00:00:00 Test Item Value Reference Range Interpretation Comments CHOLESTEROL (test code = 2210) 292 MG/DL TRIGLYCERIDES (test code = 2232) 184 MG/DL HDL CHOLESTEROL (test code = 2220) 51 MG/DL CALC LDL CHOL (test code = 2237) 205 MG/DL RISK RATIO LDL/HDL (test code = 4.02 RATIO 2238) LIPID [id number] 00:00:00 Test Item Value Reference Range Interpretation Comments CHOLESTEROL (test code = 2210) 292 MG/DL TRIGLYCERIDES (test code = 2232) 184 MG/DL HDL CHOLESTEROL (test code = 2220) 51 MG/DL CALC LDL CHOL (test code = 2237) 205 MG/DL RISK RATIO LDL/HDL (test code = 4.02 RATIO 2238) HEMOGLOBIN [id number] 00:00:00 Test Item Value Reference Range Interpretation Comments HEMOGLOBIN A1c (test code = 19935) 6.6 % HEMOGLOBIN [id number] 00:00:00 Test Item Value Reference Range Interpretation Comments HEMOGLOBIN A1c (test code = 08808) 6.6 % HEMOGLOBIN [id number] 00:00:00 Test Item Value Reference Range Interpretation Comments HEMOGLOBIN A1c (test code = 59778) 6.6 % HEMOGLOBIN [id number] 00:00:00 Test Item Value Reference Range Interpretation Comments HEMOGLOBIN A1c (test code = 79847) 6.8 % HEMOGLOBIN [id number] 00:00:00 Test Item Value Reference Range Interpretation Comments HEMOGLOBIN A1c (test code = 48955) 6.8 % HEMOGLOBIN [id number] 00:00:00 Test Item Value Reference Range Interpretation Comments HEMOGLOBIN A1c (test code = 04079) 6.8 % LIPID [id number] 00:00:00 Test Item Value Reference Range Interpretation Comments CHOLESTEROL (test code = 2210) 303 MG/DL TRIGLYCERIDES (test code = 2232) 191 MG/DL HDL CHOLESTEROL (test code = 2220) 61 MG/DL CALC LDL CHOL (test code = 2237) 205 MG/DL RISK RATIO LDL/HDL (test code = 3.36 RATIO 2238) LIPID [id number] 00:00:00 Test Item Value Reference Range Interpretation Comments CHOLESTEROL (test code = 2210) 303 MG/DL TRIGLYCERIDES (test code = 2232) 191 MG/DL HDL CHOLESTEROL (test code = 2220) 61 MG/DL CALC LDL CHOL (test code = 2237) 205 MG/DL RISK RATIO LDL/HDL (test code = 3.36 RATIO 2238) [id number] 00:00:00 Test Item Value Reference Range Interpretation Comments TSH, THIRD GENERATION (test code 0.769 UIU/ML = 2821) [id number] 00:00:00 Test Item Value Reference Range Interpretation Comments TSH, THIRD GENERATION (test code 0.769 UIU/ML = 2821) [id number] 00:00:00 Test Item Value Reference Range Interpretation Comments TSH, THIRD GENERATION (test code 0.769 UIU/ML = 2821) COMPREHENSIVE METABOLIC [id number] 00:00:00 Test Item Value Reference Range Interpretation Comments GLUCOSE (test code = 2217) 131 MG/DL BUN (test code = 2208) 13 MG/DL CREATININE (test code = 2214) 0.65 MG/DL eGFR AMER. (test code 113 ML/MIN/1.73 = 06816) eGFR NON- AMER. (test 97 ML/MIN/1.73 code = 27181) CALC BUN/CREAT (test code = 20 RATIO [...] code = 2219) 23 U/L COMPREHENSIVE METABOLIC [id number] 00:00:00 Test Item Value Reference Range Interpretation Comments GLUCOSE (test code = 2217) 131 MG/DL BUN (test code = 2208) 13 MG/DL CREATININE (test code = 2214) 0.65 MG/DL eGFR AMER. (test code 113 ML/MIN/1.73 = 19332) eGFR NON- AMER. (test 97 ML/MIN/1.73 code = 30856) CALC BUN/CREAT (test code = 20 RATIO [...] (test code = 2219) 23 U/L HEMOGLOBIN [id number] 00:00:00 Test Item Value Reference Range Interpretation Comments HEMOGLOBIN A1c (test code = 97782) 6.8 % HEMOGLOBIN [id number] 00:00:00 Test Item Value Reference Range Interpretation Comments HEMOGLOBIN A1c (test code = 57259) 6.8 % LIPID [id number] 00:00:00 Test Item Value Reference Range Interpretation Comments CHOLESTEROL (test code = 2210) 303 MG/DL TRIGLYCERIDES (test code = 2232) 191 MG/DL HDL CHOLESTEROL (test code = 2220) 61 MG/DL CALC LDL CHOL (test code = 2237) 205 MG/DL RISK RATIO LDL/HDL (test code = 3.36 RATIO 2238) [id number] 00:00:00 Test Item Value Reference Range Interpretation Comments TSH, THIRD GENERATION (test code 0.769 UIU/ML = 2821) [id number] 00:00:00 Test Item Value Reference Range Interpretation Comments TSH, THIRD GENERATION (test code 0.769 UIU/ML = 2821) COMPREHENSIVE METABOLIC [id number] 00:00:00 Test Item Value Reference Range Interpretation Comments GLUCOSE (test code = 2217) 131 MG/DL BUN (test code = 2208) 13 MG/DL CREATININE (test code = 2214) 0.65 MG/DL eGFR AMER. (test code 113 ML/MIN/1.73 = 48153) eGFR NON- AMER. (test 97 ML/MIN/1.73 code = 35134) CALC BUN/CREAT (test code = 20 RATIO [...] (test code = 2219) 23 U/L HEMOGLOBIN [id number] 00:00:00 Test Item Value Reference Range Interpretation Comments HEMOGLOBIN A1c (test code = 19663) 6.8 % HEMOGLOBIN [id number] 00:00:00 Test Item Value Reference Range Interpretation Comments HEMOGLOBIN A1c (test code = 32143) 6.8 % HEMOGLOBIN [id number] 00:00:00 Test Item Value Reference Range Interpretation Comments HEMOGLOBIN A1c (test code = 16758) 6.8 % LIPID [id number] 00:00:00 Test Item Value Reference Range Interpretation Comments CHOLESTEROL (test code = 2210) 303 MG/DL TRIGLYCERIDES (test code = 2232) 191 MG/DL HDL CHOLESTEROL (test code = 2220) 61 MG/DL CALC LDL CHOL (test code = 2237) 205 MG/DL RISK RATIO LDL/HDL (test code = 3.36 RATIO 2238) LIPID [id number] 00:00:00 Test Item Value Reference Range Interpretation Comments CHOLESTEROL (test code = 2210) 303 MG/DL TRIGLYCERIDES (test code = 2232) 191 MG/DL HDL CHOLESTEROL (test code = 2220) 61 MG/DL CALC LDL CHOL (test code = 2237) 205 MG/DL RISK RATIO LDL/HDL (test code = 3.36 RATIO 2238) [id number] 00:00:00 Test Item Value Reference Range Interpretation Comments TSH, THIRD GENERATION (test code 0.769 UIU/ML = 2821) [id number] 00:00:00 Test Item Value Reference Range Interpretation Comments TSH, THIRD GENERATION (test code 0.769 UIU/ML = 2821) [id number] 00:00:00 Test Item Value Reference Range Interpretation Comments TSH, THIRD GENERATION (test code 0.769 UIU/ML = 2821) COMPREHENSIVE METABOLIC [id number] 00:00:00 Test Item Value Reference Range Interpretation Comments GLUCOSE (test code = 2217) 131 MG/DL BUN (test code = 2208) 13 MG/DL CREATININE (test code = 2214) 0.65 MG/DL eGFR AMER. (test code 113 ML/MIN/1.73 = 43891) eGFR NON- AMER. (test 97 ML/MIN/1.73 code = 90543) CALC BUN/CREAT (test code = 20 RATIO [...] code = 2219) 23 U/L COMPREHENSIVE METABOLIC [id number] 00:00:00 Test Item Value Reference Range Interpretation Comments GLUCOSE (test code = 2217) 131 MG/DL BUN (test code = 2208) 13 MG/DL CREATININE (test code = 2214) 0.65 MG/DL eGFR AMER. (test code 113 ML/MIN/1.73 = 65264) eGFR NON- AMER. (test 97 ML/MIN/1.73 code = 54399) CALC BUN/CREAT (test code = 20 RATIO [...] (test code = 2219) 23 U/L HEMOGLOBIN [id number] 00:00:00 Test Item Value Reference Range Interpretation Comments HEMOGLOBIN A1c (test code = 64372) 6.6 % HEMOGLOBIN [id number] 00:00:00 Test Item Value Reference Range Interpretation Comments HEMOGLOBIN A1c (test code = 57583) 6.6 % HEMOGLOBIN [id number] 00:00:00 Test Item Value Reference Range Interpretation Comments HEMOGLOBIN A1c (test code = 11488) 6.6 % LIPID [id number] 00:00:00 Test Item Value Reference Range Interpretation Comments CHOLESTEROL (test code = 2210) 261 MG/DL TRIGLYCERIDES (test code = 2232) 159 MG/DL HDL CHOLESTEROL (test code = 2220) 82 MG/DL CALC LDL CHOL (test code = 2237) 150 MG/DL RISK RATIO LDL/HDL (test code = 1.83 RATIO 2238) LIPID [id number] 00:00:00 Test Item Value Reference Range Interpretation Comments CHOLESTEROL (test code = 2210) 261 MG/DL TRIGLYCERIDES (test code = 2232) 159 MG/DL HDL CHOLESTEROL (test code = 2220) 82 MG/DL CALC LDL CHOL (test code = 2237) 150 MG/DL RISK RATIO LDL/HDL (test code = 1.83 RATIO 2238) COMPREHENSIVE METABOLIC [id number] 00:00:00 Test Item Value Reference Range Interpretation Comments GLUCOSE (test code = 2217) 144 MG/DL BUN (test code = 2208) 15 MG/DL CREATININE (test code = 2214) 0.85 MG/DL eGFR AMER. (test code 87 ML/MIN/1.73 = 49648) eGFR NON- AMER. (test 75 ML/MIN/1.73 code = 34339) CALC BUN/CREAT (test code = 18 RATIO [...] CALC GLOBULIN (test code = 2.5 G/DL 224) CALC A/G RATIO (test code = 2.0 RATIO 2234) BILIRUBIN, TOTAL (test code = <0.2 MG/DL 2206) ALKALINE PHOSPHATASE (test 117 U/L code = 2204) AST (test code = 2218) 27 U/L ALT (test code = 2219) 50 U/L COMPREHENSIVE METABOLIC [id number] 00:00:00 Test Item Value Reference Range Interpretation Comments GLUCOSE (test code = 2217) 144 MG/DL BUN (test code = 2208) 15 MG/DL CREATININE (test code = 2214) 0.85 MG/DL eGFR AMER. (test code 87 ML/MIN/1.73 = 05378) eGFR NON- AMER. (test 75 ML/MIN/1.73 code = 74926) CALC BUN/CREAT (test code = 18 RATIO [...] THYROX. BIND. CAPAC. (test code 1.1 = 29026) T4 (THYROXINE) (test code = 4.3 UG/DL 2819) CORRECTED T4 (FTI) (test code = 3.9 UG/DL 2820) TSH, THIRD GENERATION (test 18.900 UIU/ML code = 2821) THYROID II PROFILE (T3U, T4, T7, TSH)[id number] 00:00:00 Test Item Value Reference Range Interpretation Comments T-UPTAKE (test code = 7) 30.2 % THYROX. BIND. CAPAC. (test code 1.1 = 20830) T4 (THYROXINE) (test code = 4.3 UG/DL 2819) CORRECTED T4 (FTI) (test code = 3.9 UG/DL 2820) TSH, THIRD GENERATION (test 18.900 UIU/ML code = 2821) HEMOGLOBIN [id number] 00:00:00 Test Item Value Reference Range Interpretation Comments HEMOGLOBIN A1c (test code = 68133) 6.6 % HEMOGLOBIN [id number] 00:00:00 Test Item Value Reference Range Interpretation Comments HEMOGLOBIN A1c (test code = 11626) 6.6 % LIPID [id number] 00:00:00 Test Item Value Reference Range Interpretation Comments CHOLESTEROL (test code = 2210) 261 MG/DL TRIGLYCERIDES (test code = 2232) 159 MG/DL HDL CHOLESTEROL (test code = 2220) 82 MG/DL CALC LDL CHOL (test code = 2237) 150 MG/DL RISK RATIO LDL/HDL (test code = 1.83 RATIO 2238) COMPREHENSIVE METABOLIC [id number] 00:00:00 Test Item Value Reference Range Interpretation Comments GLUCOSE (test code = 2217) 144 MG/DL BUN (test code = 2208) 15 MG/DL CREATININE (test code = 2214) 0.85 MG/DL eGFR AMER. (test code 87 ML/MIN/1.73 = 31522) eGFR NON- AMER. (test 75 ML/MIN/1.73 code = 48691) CALC BUN/CREAT (test code = 18 RATIO [...] THYROX. BIND. CAPAC. (test code 1.1 = 00876) T4 (THYROXINE) (test code = 4.3 UG/DL 2819) CORRECTED T4 (FTI) (test code = 3.9 UG/DL 2820) TSH, THIRD GENERATION (test 18.900 UIU/ML code = 2821) HEMOGLOBIN [id number] 00:00:00 Test Item Value Reference Range Interpretation Comments HEMOGLOBIN A1c (test code = 88220) 6.6 % HEMOGLOBIN [id number] 00:00:00 Test Item Value Reference Range Interpretation Comments HEMOGLOBIN A1c (test code = 60949) 6.6 % HEMOGLOBIN [id number] 00:00:00 Test Item Value Reference Range Interpretation Comments HEMOGLOBIN A1c (test code = 28758) 6.6 % LIPID [id number] 00:00:00 Test Item Value Reference Range Interpretation Comments CHOLESTEROL (test code = 2210) 261 MG/DL TRIGLYCERIDES (test code = 2232) 159 MG/DL HDL CHOLESTEROL (test code = 2220) 82 MG/DL CALC LDL CHOL (test code = 2237) 150 MG/DL RISK RATIO LDL/HDL (test code = 1.83 RATIO 2238) LIPID [id number] 00:00:00 Test Item Value Reference Range Interpretation Comments CHOLESTEROL (test code = 2210) 261 MG/DL TRIGLYCERIDES (test code = 2232) 159 MG/DL HDL CHOLESTEROL (test code = 2220) 82 MG/DL CALC LDL CHOL (test code = 2237) 150 MG/DL RISK RATIO LDL/HDL (test code = 1.83 RATIO 2238) COMPREHENSIVE METABOLIC [id number] 00:00:00 Test Item Value Reference Range Interpretation Comments GLUCOSE (test code = 2217) 144 MG/DL BUN (test code = 2208) 15 MG/DL CREATININE (test code = 2214) 0.85 MG/DL eGFR AMER. (test code 87 ML/MIN/1.73 = 76451) eGFR NON- AMER. (test 75 ML/MIN/1.73 code = 22392) CALC BUN/CREAT (test code = 18 RATIO [...] code = 2219) 50 U/L COMPREHENSIVE METABOLIC [id number] 00:00:00 Test Item Value Reference Range Interpretation Comments GLUCOSE (test code = 2217) 144 MG/DL BUN (test code = 2208) 15 MG/DL CREATININE (test code = 2214) 0.85 MG/DL eGFR AMER. (test code 87 ML/MIN/1.73 = 37834) eGFR NON- AMER. (test 75 ML/MIN/1.73 code = 23609) CALC BUN/CREAT (test code = 18 RATIO [...] = 2203) AST (test code = 2218) 27 U/L ALT (test code = 2219) 50 U/L THYROID II PROFILE (T3U, T4, T7, TSH)[id number] 00:00:00 Test Item Value Reference Range Interpretation Comments T-UPTAKE (test code = 2816) 30.2 % THYROX. BIND. CAPAC. (test code 1.1 = 76956) T4 (THYROXINE) (test code = 4.3 UG/DL 2819) CORRECTED T4 (FTI) (test code = 3.9 UG/DL 2820) TSH, THIRD GENERATION (test 18.900 UIU/ML code = 2821) THYROID II PROFILE (T3U, T4, T7, TSH)2020-05-23 00:00:00 Test Item Value Reference Range Interpretation Comments T-UPTAKE (test code = 7) 30.2 % THYROX. BIND. CAPAC. (test code 1.1 = 94613) T4 (THYROXINE) (test code = 4.3 UG/DL 2819) CORRECTED T4 (FTI) (test code = 3.9 UG/DL 2820) TSH, THIRD GENERATION (test 18.900 UIU/ML code = 2821) HEMOGLOBIN [id number] 00:00:00 Test Item Value Reference Range Interpretation Comments HEMOGLOBIN A1c (test code = 75329) 6.7 % HEMOGLOBIN [id number] 00:00:00 Test Item Value Reference Range Interpretation Comments HEMOGLOBIN A1c (test code = 97251) 6.7 % HEMOGLOBIN [id number] 00:00:00 Test Item Value Reference Range Interpretation Comments HEMOGLOBIN A1c (test code = 35120) 6.7 % LIPID [id number] 00:00:00 Test Item Value Reference Range Interpretation Comments CHOLESTEROL (test code = 2210) 267 MG/DL TRIGLYCERIDES (test code = 2232) 137 MG/DL HDL CHOLESTEROL (test code = 2220) 48 MG/DL CALC LDL CHOL (test code = 2237) 192 MG/DL RISK RATIO LDL/HDL (test code = 4.00 RATIO 2238) LIPID [id number] 00:00:00 Test Item Value Reference Range Interpretation Comments CHOLESTEROL (test code = 2210) 267 MG/DL TRIGLYCERIDES (test code = 2232) 137 MG/DL HDL CHOLESTEROL (test code = 2220) 48 MG/DL CALC LDL CHOL (test code = 2237) 192 MG/DL RISK RATIO LDL/HDL (test code = 4.00 RATIO 2238) COMPREHENSIVE METABOLIC [id number] 00:00:00 Test Item Value Reference Range Interpretation Comments GLUCOSE (test code = 2217) 155 MG/DL BUN (test code = 2208) 14 MG/DL CREATININE (test code = 2214) 0.52 MG/DL eGFR AMER. (test code 122 ML/MIN/1.73 = 41818) eGFR NON- AMER. (test 105 ML/MIN/1.73 code = 46210) CALC BUN/CREAT (test code = 27 RATIO [...] code = 2219) 27 U/L COMPREHENSIVE METABOLIC [id number] 00:00:00 Test Item Value Reference Range Interpretation Comments GLUCOSE (test code = 2217) 155 MG/DL BUN (test code = 2208) 14 MG/DL CREATININE (test code = 2214) 0.52 MG/DL eGFR AMER. (test code 122 ML/MIN/1.73 = 75746) eGFR NON- AMER. (test 105 ML/MIN/1.73 code = 10357) CALC BUN/CREAT (test code = 27 RATIO [...] THYROX. BIND. CAPAC. (test code 1.0 = 38369) T4 (THYROXINE) (test code = 4.7 UG/DL 2819) CORRECTED T4 (FTI) (test code = 4.7 UG/DL 2820) TSH, THIRD GENERATION (test code 0.201 UIU/ML = 2821) THYROID II PROFILE (T3U, T4, T7, TSH)2019 00:00:00 Test Item Value Reference Range Interpretation Comments T-UPTAKE (test code = 281) 33.1 % THYROX. BIND. CAPAC. (test code 1.0 = 99033) T4 (THYROXINE) (test code = 4.7 UG/DL 281) CORRECTED T4 (FTI) (test code = 4.7 UG/DL 2820) TSH, THIRD GENERATION (test code 0.201 UIU/ML = 2821) HEMOGLOBIN [id number] 00:00:00 Test Item Value Reference Range Interpretation Comments HEMOGLOBIN A1c (test code = 08991) 6.7 % HEMOGLOBIN [id number] 00:00:00 Test Item Value Reference Range Interpretation Comments HEMOGLOBIN A1c (test code = 67180) 6.7 % LIPID [id number] 00:00:00 Test Item Value Reference Range Interpretation Comments CHOLESTEROL (test code = 2210) 267 MG/DL TRIGLYCERIDES (test code = 2232) 137 MG/DL HDL CHOLESTEROL (test code = 2220) 48 MG/DL CALC LDL CHOL (test code = 2237) 192 MG/DL RISK RATIO LDL/HDL (test code = 4.00 RATIO 2238) COMPREHENSIVE METABOLIC [id number] 00:00:00 Test Item Value Reference Range Interpretation Comments GLUCOSE (test code = 2217) 155 MG/DL BUN (test code = 2208) 14 MG/DL CREATININE (test code = 2214) 0.52 MG/DL eGFR AMER. (test code 122 ML/MIN/1.73 = 87116) eGFR NON- AMER. (test 105 ML/MIN/1.73 code = 67747) CALC BUN/CREAT (test code = 27 RATIO [...] THYROX. BIND. CAPAC. (test code 1.0 = 38015) T4 (THYROXINE) (test code = 4.7 UG/DL 2819) CORRECTED T4 (FTI) (test code = 4.7 UG/DL 2820) TSH, THIRD GENERATION (test code 0.201 UIU/ML = 2821) HEMOGLOBIN [id number] 00:00:00 Test Item Value Reference Range Interpretation Comments HEMOGLOBIN A1c (test code = 64541) 6.7 % HEMOGLOBIN [id number] 00:00:00 Test Item Value Reference Range Interpretation Comments HEMOGLOBIN A1c (test code = 74897) 6.7 % HEMOGLOBIN [id number] 00:00:00 Test Item Value Reference Range Interpretation Comments HEMOGLOBIN A1c (test code = 93664) 6.7 % LIPID [id number] 00:00:00 Test Item Value Reference Range Interpretation Comments CHOLESTEROL (test code = 2210) 267 MG/DL TRIGLYCERIDES (test code = 2232) 137 MG/DL HDL CHOLESTEROL (test code = 2220) 48 MG/DL CALC LDL CHOL (test code = 2237) 192 MG/DL RISK RATIO LDL/HDL (test code = 4.00 RATIO 2238) LIPID [id number] 00:00:00 Test Item Value Reference Range Interpretation Comments CHOLESTEROL (test code = 2210) 267 MG/DL TRIGLYCERIDES (test code = 2232) 137 MG/DL HDL CHOLESTEROL (test code = 2220) 48 MG/DL CALC LDL CHOL (test code = 2237) 192 MG/DL RISK RATIO LDL/HDL (test code = 4.00 RATIO 2238) COMPREHENSIVE METABOLIC [id number] 00:00:00 Test Item Value Reference Range Interpretation Comments GLUCOSE (test code = 2217) 155 MG/DL BUN (test code = 2208) 14 MG/DL CREATININE (test code = 2214) 0.52 MG/DL eGFR AMER. (test code 122 ML/MIN/1.73 = 30221) eGFR NON- AMER. (test 105 ML/MIN/1.73 code = 02491) CALC BUN/CREAT (test code = 27 RATIO 2235) SODIUM (test code = 2231) 142 MEQ/L POTASSIUM (test code = 2228) 4.4 MEQ/L CHLORIDE (test code = 2215) 104 MEQ/L CARBON DIOXIDE (test code = 25 MEQ/L 2206) CALCIUM (test code = 2209) 9.2 MG/DL PROTEIN, TOTAL (test code = 7.1 G/DL 222) ALBUMIN (test code = 2201) 4.5 G/DL CALC GLOBULIN (test code = 2.6 G/DL 2240) CALC A/G RATIO (test code = 1.7 RATIO 2234) BILIRUBIN, TOTAL (test code = <0.2 MG/DL 2206) ALKALINE PHOSPHATASE (test 115 U/L code = 220) AST (test code = 2218) 17 U/L ALT (test code = 2219) 27 U/L COMPREHENSIVE METABOLIC [id number] 00:00:00 Test Item Value Reference Range Interpretation Comments GLUCOSE (test code = 2217) 155 MG/DL BUN (test code = 2208) 14 MG/DL CREATININE (test code = 2214) 0.52 MG/DL eGFR AMER. (test code 122 ML/MIN/1.73 = 09309) eGFR NON- AMER. (test 105 ML/MIN/1.73 code = 22233) CALC BUN/CREAT (test code = 27 RATIO [...] THYROX. BIND. CAPAC. (test code 1.0 = 58199) T4 (THYROXINE) (test code = 4.7 UG/DL 2819) CORRECTED T4 (FTI) (test code = 4.7 UG/DL 2820) TSH, THIRD GENERATION (test code 0.201 UIU/ML = 2821) THYROID II PROFILE (T3U, T4, T7, TSH)2019 00:00:00 Test Item Value Reference Range Interpretation Comments T-UPTAKE (test code = 2817) 33.1 % THYROX. BIND. CAPAC. (test code 1.0 = 86258) T4 (THYROXINE) (test code = 4.7 UG/DL 2819) CORRECTED T4 (FTI) (test code = 4.7 UG/DL 2820) TSH, THIRD GENERATION (test code 0.201 UIU/ML = 2821) SARS-CoV-2 (COVID-19) by RT-PCR (HIGH RISK)2019-09-18 00:00:00 Test Item Value Reference Range Interpretation Comments SARS-CoV-2 INTERPRETATION (test NEGATIVE code = 11658) SOURCE (test code = 28997) NOT SPECIFIED SARS-CoV-2 (COVID-19) by RT-PCR (HIGH RISK)2019-09-18 00:00:00 Test Item Value Reference Range Interpretation Comments SARS-CoV-2 INTERPRETATION (test NEGATIVE code = 44541) SOURCE (test code = 22881) NOT SPECIFIED SARS-CoV-2 (COVID-19) by RT-PCR (HIGH RISK)2019-09-18 00:00:00 Test Item Value Reference Range Interpretation Comments SARS-CoV-2 INTERPRETATION (test NEGATIVE code = 64106) SOURCE (test code = 48820) NOT SPECIFIED SARS-CoV-2 (COVID-19) by RT-PCR (HIGH RISK)2019-09-18 00:00:00 Test Item Value Reference Range Interpretation Comments SARS-CoV-2 INTERPRETATION (test NEGATIVE code = 15717) SOURCE (test code = 10738) NOT SPECIFIED SARS-CoV-2 (COVID-19) by RT-PCR (HIGH RISK)2019-09-18 00:00:00 Test Item Value Reference Range Interpretation Comments SARS-CoV-2 INTERPRETATION (test NEGATIVE code = 44208) SOURCE (test code = 78791) NOT SPECIFIED [id number] 00:00:00 Test Item Value Reference Range Interpretation Comments TSH, THIRD GENERATION (test code 2.490 UIU/ML = 2821) [id number] 00:00:00 Test Item Value Reference Range Interpretation Comments TSH, THIRD GENERATION (test code 2.490 UIU/ML = 2821) [id number] 00:00:00 Test Item Value Reference Range Interpretation Comments TSH, THIRD GENERATION (test code 2.490 UIU/ML = 2821) HEMOGLOBIN [id number] 00:00:00 Test Item Value Reference Range Interpretation Comments HEMOGLOBIN A1c (test code = 65344) 6.4 % HEMOGLOBIN [id number] 00:00:00 Test Item Value Reference Range Interpretation Comments HEMOGLOBIN A1c (test code = 47868) 6.4 % HEMOGLOBIN [id number] 00:00:00 Test Item Value Reference Range Interpretation Comments HEMOGLOBIN A1c (test code = 88230) 6.4 % COMPREHENSIVE METABOLIC [id number] 00:00:00 Test Item Value Reference Range Interpretation Comments GLUCOSE (test code = 2217) 206 MG/DL BUN (test code = 2208) 23 MG/DL CREATININE (test code = 2214) 0.67 MG/DL eGFR AMER. (test code 112 ML/MIN/1.73 = 00765) eGFR NON- AMER. (test 97 ML/MIN/1.73 code = 61979) CALC BUN/CREAT (test code = 34 RATIO [...] code = 2219) 25 U/L COMPREHENSIVE METABOLIC [id number] 00:00:00 Test Item Value Reference Range Interpretation Comments GLUCOSE (test code = 2217) 206 MG/DL BUN (test code = 2208) 23 MG/DL CREATININE (test code = 2214) 0.67 MG/DL eGFR AMER. (test code 112 ML/MIN/1.73 = 76377) eGFR NON- AMER. (test 97 ML/MIN/1.73 code = 59257) CALC BUN/CREAT (test code = 34 RATIO [...] ALT (test code = 2219) 25 U/L [id number] 00:00:00 Test Item Value Reference Range Interpretation Comments TSH, THIRD GENERATION (test code 2.490 UIU/ML = 2821) [id number] 00:00:00 Test Item Value Reference Range Interpretation Comments TSH, THIRD GENERATION (test code 2.490 UIU/ML = 2821) HEMOGLOBIN [id number] 00:00:00 Test Item Value Reference Range Interpretation Comments HEMOGLOBIN A1c (test code = 51986) 6.4 % HEMOGLOBIN [id number] 00:00:00 Test Item Value Reference Range Interpretation Comments HEMOGLOBIN A1c (test code = 13791) 6.4 % COMPREHENSIVE METABOLIC [id number] 00:00:00 Test Item Value Reference Range Interpretation Comments GLUCOSE (test code = 2217) 206 MG/DL BUN (test code = 2208) 23 MG/DL CREATININE (test code = 2214) 0.67 MG/DL eGFR AMER. (test code 112 ML/MIN/1.73 = 18359) eGFR NON- AMER. (test 97 ML/MIN/1.73 code = 31443) CALC BUN/CREAT (test code = 34 RATIO [...] ALT (test code = 2219) 25 U/L [id number] 00:00:00 Test Item Value Reference Range Interpretation Comments TSH, THIRD GENERATION (test code 2.490 UIU/ML = 2821) [id number] 00:00:00 Test Item Value Reference Range Interpretation Comments TSH, THIRD GENERATION (test code 2.490 UIU/ML = 2821) [id number] 00:00:00 Test Item Value Reference Range Interpretation Comments TSH, THIRD GENERATION (test code 2.490 UIU/ML = 2821) HEMOGLOBIN [id number] 00:00:00 Test Item Value Reference Range Interpretation Comments HEMOGLOBIN A1c (test code = 96087) 6.4 % HEMOGLOBIN [id number] 00:00:00 Test Item Value Reference Range Interpretation Comments HEMOGLOBIN A1c (test code = 51398) 6.4 % HEMOGLOBIN [id number] 00:00:00 Test Item Value Reference Range Interpretation Comments HEMOGLOBIN A1c (test code = 52397) 6.4 % COMPREHENSIVE METABOLIC [id number] 00:00:00 Test Item Value Reference Range Interpretation Comments GLUCOSE (test code = 2217) 206 MG/DL BUN (test code = 2208) 23 MG/DL CREATININE (test code = 2214) 0.67 MG/DL eGFR AMER. (test code 112 ML/MIN/1.73 = 07452) eGFR NON- AMER. (test 97 ML/MIN/1.73 code = 33835) CALC BUN/CREAT (test code = 34 RATIO [...] code = 2219) 25 U/L COMPREHENSIVE METABOLIC [id number] 00:00:00 Test Item Value Reference Range Interpretation Comments GLUCOSE (test code = 2217) 206 MG/DL BUN (test code = 2208) 23 MG/DL CREATININE (test code = 2214) 0.67 MG/DL eGFR AMER. (test code 112 ML/MIN/1.73 = 50249) eGFR NON- AMER. (test 97 ML/MIN/1.73 code = 85903) CALC BUN/CREAT (test code = 34 RATIO [...] = 2219) 25 U/L VAGINAL PATHOGENS DNA [id number] 00:00:00 Test Item Value Reference Range Interpretation Comments MARK SPECIES (test code = 58404) NEGATIVE G. VAGINALIS (test code = 69236) NEGATIVE T. VAGINALIS (test code = 41460) NEGATIVE VAGINAL PATHOGENS DNA [id number] 00:00:00 Test Item Value Reference Range Interpretation Comments MARK SPECIES (test code = 57076) NEGATIVE G. VAGINALIS (test code = 60227) NEGATIVE T. VAGINALIS (test code = 65804) NEGATIVE VAGINAL PATHOGENS DNA [id number] 00:00:00 Test Item Value Reference Range Interpretation Comments MARK SPECIES (test code = 29348) NEGATIVE G. VAGINALIS (test code = 16959) NEGATIVE T. VAGINALIS (test code = 79320) NEGATIVE VAGINAL PATHOGENS DNA [id number] 00:00:00 Test Item Value Reference Range Interpretation Comments MARK SPECIES (test code = 30098) NEGATIVE G. VAGINALIS (test code = 65482) NEGATIVE T. VAGINALIS (test code = 19567) NEGATIVE VAGINAL PATHOGENS DNA [id number] 00:00:00 Test Item Value Reference Range Interpretation Comments MARK SPECIES (test code = 72004) NEGATIVE G. VAGINALIS (test code = 80201) NEGATIVE T. VAGINALIS (test code = 75692) NEGATIVE HEMOGLOBIN A1c [ADDED]2018-12-01 00:00:00 Test Item Value Reference Range Interpretation Comments HEMOGLOBIN A1c (test code = 77987) 6.7 % HEMOGLOBIN A1c [ADDED]2018-12-01 00:00:00 Test Item Value Reference Range Interpretation Comments HEMOGLOBIN A1c (test code = 42845) 6.7 % HEMOGLOBIN A1c [ADDED]2018-12-01 00:00:00 Test Item Value Reference Range Interpretation Comments HEMOGLOBIN A1c (test code = 20502) 6.7 % COMPREHENSIVE METABOLIC PANEL [ADDED]2018-12-01 00:00:00 Test Item Value Reference Range Interpretation Comments GLUCOSE (test code = 2217) 136 MG/DL BUN (test code = 2208) 15 MG/DL CREATININE (test code = 2214) 0.64 MG/DL eGFR AMER. (test code 115 ML/MIN/1.73 = 17855) eGFR NON- AMER. (test 99 ML/MIN/1.73 code = 19493) CALC BUN/CREAT (test code = 23 RATIO [...] eGFR AMER. (test code 115 ML/MIN/1.73 = 91089) eGFR NON- AMER. (test 99 ML/MIN/1.73 code = 61693) CALC BUN/CREAT (test code = 23 RATIO [...] Interpretation Comments HEMOGLOBIN A1c (test code = 32750) 6.7 % HEMOGLOBIN A1c [ADDED]2018-12-01 00:00:00 Test Item Value Reference Range Interpretation Comments HEMOGLOBIN A1c (test code = 94160) 6.7 % COMPREHENSIVE METABOLIC PANEL [ADDED]2018-12-01 00:00:00 Test Item Value Reference Range Interpretation Comments GLUCOSE (test code = 2217) 136 MG/DL BUN (test code = 2208) 15 MG/DL CREATININE (test code = 2214) 0.64 MG/DL eGFR AMER. (test code 115 ML/MIN/1.73 = 23009) eGFR NON- AMER. (test 99 ML/MIN/1.73 code = 30191) CALC BUN/CREAT (test code = 23 RATIO [...] Interpretation Comments HEMOGLOBIN A1c (test code = 79983) 6.7 % HEMOGLOBIN A1c [ADDED]2018-12-01 00:00:00 Test Item Value Reference Range Interpretation Comments HEMOGLOBIN A1c (test code = 82628) 6.7 % HEMOGLOBIN A1c [ADDED]2018-12-01 00:00:00 Test Item Value Reference Range Interpretation Comments HEMOGLOBIN A1c (test code = 96259) 6.7 % COMPREHENSIVE METABOLIC PANEL [ADDED]2018-12-01 00:00:00 Test Item Value Reference Range Interpretation Comments GLUCOSE (test code = 2217) 136 MG/DL BUN (test code = 2208) 15 MG/DL CREATININE (test code = 2214) 0.64 MG/DL eGFR AMER. (test code 115 ML/MIN/1.73 = 38257) eGFR NON- AMER. (test 99 ML/MIN/1.73 code = 22537) CALC BUN/CREAT (test code = 23 RATIO [...] eGFR AMER. (test code 115 ML/MIN/1.73 = 95318) eGFR NON- AMER. (test 99 ML/MIN/1.73 code = 28579) CALC BUN/CREAT (test code = 23 RATIO [...] code 1.280 UIU/ML = 2821) CBC W/AUTO [id number] 00:00:00 Test Item Value Reference Range Interpretation [...] code = 1015) 346 K/UL CBC W/AUTO [id number] 00:00:00 Test Item Value Reference Range Interpretation [...] code = 1015) 346 K/UL CBC W/AUTO [id number] 00:00:00 Test Item Value Reference Range Interpretation [...] (test code = 1015) 346 K/UL HEMOGLOBIN [id number] 00:00:00 Test Item Value Reference Range Interpretation Comments HEMOGLOBIN A1c (test code = 78183) 5.9 % HEMOGLOBIN [id number] 00:00:00 Test Item Value Reference Range Interpretation Comments HEMOGLOBIN A1c (test code = 53451) 5.9 % HEMOGLOBIN [id number] 00:00:00 Test Item Value Reference Range Interpretation Comments HEMOGLOBIN A1c (test code = 37537) 5.9 % LIPID [id number] 00:00:00 Test Item Value Reference Range Interpretation Comments CHOLESTEROL (test code = 2210) 318 MG/DL TRIGLYCERIDES (test code = 2232) 263 MG/DL HDL CHOLESTEROL (test code = 2220) 51 MG/DL CALC LDL CHOL (test code = 2237) 214 MG/DL RISK RATIO LDL/HDL (test code = 4.20 RATIO 2238) LIPID [id number] 00:00:00 Test Item Value Reference Range Interpretation Comments CHOLESTEROL (test code = 2210) 318 MG/DL TRIGLYCERIDES (test code = 2232) 263 MG/DL HDL CHOLESTEROL (test code = 2220) 51 MG/DL CALC LDL CHOL (test code = 2237) 214 MG/DL RISK RATIO LDL/HDL (test code = 4.20 RATIO 2238) COMPREHENSIVE METABOLIC [id number] 00:00:00 Test Item Value Reference Range Interpretation Comments GLUCOSE (test code = 2217) 113 MG/DL BUN (test code = 2208) 18 MG/DL CREATININE (test code = 2214) 0.70 MG/DL eGFR AMER. (test code 111 ML/MIN/1.73 = 46256) eGFR NON- AMER. (test 96 ML/MIN/1.73 code = 31634) CALC BUN/CREAT (test code = 26 RATIO [...] code = 2219) 31 U/L COMPREHENSIVE METABOLIC [id number] 00:00:00 Test Item Value Reference Range Interpretation Comments GLUCOSE (test code = 2217) 113 MG/DL BUN (test code = 2208) 18 MG/DL CREATININE (test code = 2214) 0.70 MG/DL eGFR AMER. (test code 111 ML/MIN/1.73 = 19837) eGFR NON- AMER. (test 96 ML/MIN/1.73 code = 12527) CALC BUN/CREAT (test code = 26 RATIO [...] ALT (test code = 2219) 31 U/L [id number] 00:00:00 Test Item Value Reference Range Interpretation Comments TSH, THIRD GENERATION (test code 2.520 UIU/ML = 2821) [id number] 00:00:00 Test Item Value Reference Range Interpretation Comments TSH, THIRD GENERATION (test code 2.520 UIU/ML = 2821) [id number] 00:00:00 Test Item Value Reference Range Interpretation Comments TSH, THIRD GENERATION (test code 2.520 UIU/ML = 2821) CBC W/AUTO [id number] 00:00:00 Test Item Value Reference Range Interpretation [...] code = 1015) 346 K/UL CBC W/AUTO [id number] 00:00:00 Test Item Value Reference Range Interpretation [...] (test code = 1015) 346 K/UL HEMOGLOBIN [id number] 00:00:00 Test Item Value Reference Range Interpretation Comments HEMOGLOBIN A1c (test code = 65417) 5.9 % HEMOGLOBIN [id number] 00:00:00 Test Item Value Reference Range Interpretation Comments HEMOGLOBIN A1c (test code = 23172) 5.9 % LIPID [id number] 00:00:00 Test Item Value Reference Range Interpretation Comments CHOLESTEROL (test code = 2210) 318 MG/DL TRIGLYCERIDES (test code = 2232) 263 MG/DL HDL CHOLESTEROL (test code = 2220) 51 MG/DL CALC LDL CHOL (test code = 2237) 214 MG/DL RISK RATIO LDL/HDL (test code = 4.20 RATIO 2238) COMPREHENSIVE METABOLIC [id number] 00:00:00 Test Item Value Reference Range Interpretation Comments GLUCOSE (test code = 2217) 113 MG/DL BUN (test code = 2208) 18 MG/DL CREATININE (test code = 2214) 0.70 MG/DL eGFR AMER. (test code 111 ML/MIN/1.73 = 96167) eGFR NON- AMER. (test 96 ML/MIN/1.73 code = 59143) CALC BUN/CREAT (test code = 26 RATIO [...] ALT (test code = 2219) 31 U/L [id number] 00:00:00 Test Item Value Reference Range Interpretation Comments TSH, THIRD GENERATION (test code 2.520 UIU/ML = 2821) [id number] 00:00:00 Test Item Value Reference Range Interpretation Comments TSH, THIRD GENERATION (test code 2.520 UIU/ML = 2821) CBC W/AUTO [id number] 00:00:00 Test Item Value Reference Range Interpretation [...] code = 1015) 346 K/UL CBC W/AUTO [id number] 00:00:00 Test Item Value Reference Range Interpretation [...] code = 1015) 346 K/UL CBC W/AUTO [id number] 00:00:00 Test Item Value Reference Range Interpretation [...] (test code = 1015) 346 K/UL HEMOGLOBIN [id number] 00:00:00 Test Item Value Reference Range Interpretation Comments HEMOGLOBIN A1c (test code = 69868) 5.9 % HEMOGLOBIN [id number] 00:00:00 Test Item Value Reference Range Interpretation Comments HEMOGLOBIN A1c (test code = 47828) 5.9 % HEMOGLOBIN [id number] 00:00:00 Test Item Value Reference Range Interpretation Comments HEMOGLOBIN A1c (test code = 18410) 5.9 % LIPID [id number] 00:00:00 Test Item Value Reference Range Interpretation Comments CHOLESTEROL (test code = 2210) 318 MG/DL TRIGLYCERIDES (test code = 2232) 263 MG/DL HDL CHOLESTEROL (test code = 2220) 51 MG/DL CALC LDL CHOL (test code = 2237) 214 MG/DL RISK RATIO LDL/HDL (test code = 4.20 RATIO 2238) LIPID [id number] 00:00:00 Test Item Value Reference Range Interpretation Comments CHOLESTEROL (test code = 2210) 318 MG/DL TRIGLYCERIDES (test code = 2232) 263 MG/DL HDL CHOLESTEROL (test code = 2220) 51 MG/DL CALC LDL CHOL (test code = 2237) 214 MG/DL RISK RATIO LDL/HDL (test code = 4.20 RATIO 2238) COMPREHENSIVE METABOLIC [id number] 00:00:00 Test Item Value Reference Range Interpretation Comments GLUCOSE (test code = 2217) 113 MG/DL BUN (test code = 2208) 18 MG/DL CREATININE (test code = 2214) 0.70 MG/DL eGFR AMER. (test code 111 ML/MIN/1.73 = 31897) eGFR NON- AMER. (test 96 ML/MIN/1.73 code = 76712) CALC BUN/CREAT (test code = 26 RATIO [...] code = 2219) 31 U/L COMPREHENSIVE METABOLIC [id number] 00:00:00 Test Item Value Reference Range Interpretation Comments GLUCOSE (test code = 2217) 113 MG/DL BUN (test code = 2208) 18 MG/DL CREATININE (test code = 2214) 0.70 MG/DL eGFR AMER. (test code 111 ML/MIN/1.73 = 48065) eGFR NON- AMER. (test 96 ML/MIN/1.73 code = 95203) CALC BUN/CREAT (test code = 26 RATIO [...] ALT (test code = 2219) 31 U/L [id number] 00:00:00 Test Item Value Reference Range Interpretation Comments TSH, THIRD GENERATION (test code 2.520 UIU/ML = 2821) [id number] 00:00:00 Test Item Value Reference Range Interpretation Comments TSH, THIRD GENERATION (test code 2.520 UIU/ML = 2821) [id number] 00:00:00 Test Item Value Reference Range Interpretation Comments TSH, THIRD GENERATION (test code 2.520 UIU/ML = 2821) CULTURE, [id number] 00:00:00 Test Item Value Reference Range Interpretation Comments CULTURE, URINE (test SPECIMEN NUMBER: code = 68161) [id number] CULTURE, [id number] 00:00:00 Test Item Value Reference Range Interpretation Comments CULTURE, URINE (test SPECIMEN NUMBER: code = 79495) [id number] CULTURE, [id number] 00:00:00 Test Item Value Reference Range Interpretation Comments CULTURE, URINE (test SPECIMEN NUMBER: code = 65376) [id number] CULTURE, [id number] 00:00:00 Test Item Value Reference Range Interpretation Comments CULTURE, URINE (test SPECIMEN NUMBER: code = 06132) [id number] CULTURE, [id number] 00:00:00 Test Item Value Reference Range Interpretation Comments CULTURE, URINE (test SPECIMEN NUMBER: code = 89509) [id number] CULTURE, [id number] 00:00:00 Test Item Value Reference Range Interpretation Comments CULTURE, URINE (test SPECIMEN NUMBER: code = 87460) [id number] CULTURE, [id number] 00:00:00 Test Item Value Reference Range Interpretation Comments CULTURE, URINE (test SPECIMEN NUMBER: code = 68075) [id number] CULTURE, [id number] 00:00:00 Test Item Value Reference Range Interpretation Comments CULTURE, URINE (test SPECIMEN NUMBER: code = 15734) [id number] CULTURE, [id number] 00:00:00 Test Item Value Reference Range Interpretation Comments CULTURE, URINE (test SPECIMEN NUMBER: code = 07251) [id number] CULTURE, [id number] 00:00:00 Test Item Value Reference Range Interpretation Comments CULTURE, URINE (test SPECIMEN NUMBER: code = 63123) [id number] BASIC METABOLIC [id number] 00:00:00 Test Item Value Reference Range Interpretation Comments GLUCOSE (test code = 2217) 135 MG/DL BUN (test code = 2208) 25 MG/DL CREATININE (test code = 2214) 0.76 MG/DL eGFR AMER. (test code 101 ML/MIN/1.73 = 64146) eGFR NON- AMER. (test 87 ML/MIN/1.73 code = 88121) SODIUM (test code = 2231) 139 MEQ/L POTASSIUM (test code = 2228) 4.7 MEQ/L CHLORIDE (test code = 2215) 99 MEQ/L CARBON DIOXIDE (test code = 26 MEQ/L 2206) CALCIUM (test code = 2209) 9.4 MG/DL BASIC METABOLIC [id number] 00:00:00 Test Item Value Reference Range Interpretation Comments GLUCOSE (test code = 2217) 135 MG/DL BUN (test code = 2208) 25 MG/DL CREATININE (test code = 2214) 0.76 MG/DL eGFR AMER. (test code 101 ML/MIN/1.73 = 86909) eGFR NON- AMER. (test 87 ML/MIN/1.73 code = 72027) SODIUM (test code = 2231) 139 MEQ/L POTASSIUM (test code = 2228) 4.7 MEQ/L CHLORIDE (test code = 2215) 99 MEQ/L CARBON DIOXIDE (test code = 26 MEQ/L 2206) CALCIUM (test code = 2209) 9.4 MG/DL LIPID [id number] 00:00:00 Test Item Value Reference Range Interpretation Comments CHOLESTEROL (test code = 2210) 262 MG/DL TRIGLYCERIDES (test code = 2232) 300 MG/DL HDL CHOLESTEROL (test code = 2220) 36 MG/DL CALC LDL CHOL (test code = 2237) 166 MG/DL RISK RATIO LDL/HDL (test code = 4.61 RATIO 2238) LIPID [id number] 00:00:00 Test Item Value Reference Range Interpretation Comments CHOLESTEROL (test code = 2210) 262 MG/DL TRIGLYCERIDES (test code = 2232) 300 MG/DL HDL CHOLESTEROL (test code = 2220) 36 MG/DL CALC LDL CHOL (test code = 2237) 166 MG/DL RISK RATIO LDL/HDL (test code = 4.61 RATIO 2238) HEMOGLOBIN [id number] 00:00:00 Test Item Value Reference Range Interpretation Comments HEMOGLOBIN A1c (test code = 92913) 6.2 % HEMOGLOBIN [id number] 00:00:00 Test Item Value Reference Range Interpretation Comments HEMOGLOBIN A1c (test code = 95929) 6.2 % HEMOGLOBIN [id number] 00:00:00 Test Item Value Reference Range Interpretation Comments HEMOGLOBIN A1c (test code = 47174) 6.2 % [id number] 00:00:00 Test Item Value Reference Range Interpretation Comments TSH, THIRD GENERATION (test code 0.988 UIU/ML = 2821) [id number] 00:00:00 Test Item Value Reference Range Interpretation Comments TSH, THIRD GENERATION (test code 0.988 UIU/ML = 2821) [id number] 00:00:00 Test Item Value Reference Range Interpretation Comments TSH, THIRD GENERATION (test code 0.988 UIU/ML = 2821) BASIC METABOLIC [id number] 00:00:00 Test Item Value Reference Range Interpretation Comments GLUCOSE (test code = 2217) 135 MG/DL BUN (test code = 2208) 25 MG/DL CREATININE (test code = 2214) 0.76 MG/DL eGFR AMER. (test code 101 ML/MIN/1.73 = 05864) eGFR NON- AMER. (test 87 ML/MIN/1.73 code = 71658) SODIUM (test code = 2231) 139 MEQ/L POTASSIUM (test code = 2228) 4.7 MEQ/L CHLORIDE (test code = 2215) 99 MEQ/L CARBON DIOXIDE (test code = 26 MEQ/L 2206) CALCIUM (test code = 2209) 9.4 MG/DL LIPID [id number] 00:00:00 Test Item Value Reference Range Interpretation Comments CHOLESTEROL (test code = 2210) 262 MG/DL TRIGLYCERIDES (test code = 2232) 300 MG/DL HDL CHOLESTEROL (test code = 2220) 36 MG/DL CALC LDL CHOL (test code = 2237) 166 MG/DL RISK RATIO LDL/HDL (test code = 4.61 RATIO 2238) HEMOGLOBIN [id number] 00:00:00 Test Item Value Reference Range Interpretation Comments HEMOGLOBIN A1c (test code = 95720) 6.2 % HEMOGLOBIN [id number] 00:00:00 Test Item Value Reference Range Interpretation Comments HEMOGLOBIN A1c (test code = 14042) 6.2 % [id number] 00:00:00 Test Item Value Reference Range Interpretation Comments TSH, THIRD GENERATION (test code 0.988 UIU/ML = 2821) [id number] 00:00:00 Test Item Value Reference Range Interpretation Comments TSH, THIRD GENERATION (test code 0.988 UIU/ML = 2821) BASIC METABOLIC [id number] 00:00:00 Test Item Value Reference Range Interpretation Comments GLUCOSE (test code = 2217) 135 MG/DL BUN (test code = 2208) 25 MG/DL CREATININE (test code = 2214) 0.76 MG/DL eGFR AMER. (test code 101 ML/MIN/1.73 = 33687) eGFR NON- AMER. (test 87 ML/MIN/1.73 code = 11966) SODIUM (test code = 2231) 139 MEQ/L POTASSIUM (test code = 2228) 4.7 MEQ/L CHLORIDE (test code = 2215) 99 MEQ/L CARBON DIOXIDE (test code = 26 MEQ/L 2206) CALCIUM (test code = 2209) 9.4 MG/DL BASIC METABOLIC [id number] 00:00:00 Test Item Value Reference Range Interpretation Comments GLUCOSE (test code = 2217) 135 MG/DL BUN (test code = 2208) 25 MG/DL CREATININE (test code = 2214) 0.76 MG/DL eGFR AMER. (test code 101 ML/MIN/1.73 = 15750) eGFR NON- AMER. (test 87 ML/MIN/1.73 code = 91048) SODIUM (test code = 2231) 139 MEQ/L POTASSIUM (test code = 2228) 4.7 MEQ/L CHLORIDE (test code = 2215) 99 MEQ/L CARBON DIOXIDE (test code = 26 MEQ/L 2206) CALCIUM (test code = 2209) 9.4 MG/DL LIPID [id number] 00:00:00 Test Item Value Reference Range Interpretation Comments CHOLESTEROL (test code = 2210) 262 MG/DL TRIGLYCERIDES (test code = 2232) 300 MG/DL HDL CHOLESTEROL (test code = 2220) 36 MG/DL CALC LDL CHOL (test code = 2237) 166 MG/DL RISK RATIO LDL/HDL (test code = 4.61 RATIO 2238) LIPID [id number] 00:00:00 Test Item Value Reference Range Interpretation Comments CHOLESTEROL (test code = 2210) 262 MG/DL TRIGLYCERIDES (test code = 2232) 300 MG/DL HDL CHOLESTEROL (test code = 2220) 36 MG/DL CALC LDL CHOL (test code = 2237) 166 MG/DL RISK RATIO LDL/HDL (test code = 4.61 RATIO 2238) HEMOGLOBIN [id number] 00:00:00 Test Item Value Reference Range Interpretation Comments HEMOGLOBIN A1c (test code = 66577) 6.2 % HEMOGLOBIN [id number] 00:00:00 Test Item Value Reference Range Interpretation Comments HEMOGLOBIN A1c (test code = 62046) 6.2 % HEMOGLOBIN [id number] 00:00:00 Test Item Value Reference Range Interpretation Comments HEMOGLOBIN A1c (test code = 74000) 6.2 % [id number] 00:00:00 Test Item Value Reference Range Interpretation Comments TSH, THIRD GENERATION (test code 0.988 UIU/ML = 2821) [id number] 00:00:00 Test Item Value Reference Range Interpretation Comments TSH, THIRD GENERATION (test code 0.988 UIU/ML = 2821) [id number] 00:00:00 Test Item Value Reference Range Interpretation Comments TSH, THIRD GENERATION (test code 0.988 UIU/ML = 2821) COMPREHENSIVE METABOLIC [id number] 00:00:00 Test Item Value Reference Range Interpretation Comments GLUCOSE (test code = 2217) 109 MG/DL BUN (test code = 2208) 25 MG/DL CREATININE (test code = 2214) 0.78 MG/DL eGFR AMER. (test code 98 ML/MIN/1.73 = 96457) eGFR NON- AMER. (test 84 ML/MIN/1.73 code = 34568) CALC BUN/CREAT (test code = 32 RATIO [...] = <0.2 MG/DL 2207) ALKALINE PHOSPHATASE (test 109 U/L code = 2204) AST (test code = 2218) 18 U/L ALT (test code = 2219) 25 U/L COMPREHENSIVE METABOLIC [id number] 00:00:00 Test Item Value Reference Range Interpretation Comments GLUCOSE (test code = 2217) 109 MG/DL BUN (test code = 2208) 25 MG/DL CREATININE (test code = 2214) 0.78 MG/DL eGFR AMER. (test code 98 ML/MIN/1.73 = 22276) eGFR NON- AMER. (test 84 ML/MIN/1.73 code = 37248) CALC BUN/CREAT (test code = 32 RATIO [...] (test code = 2219) 25 U/L LIPID [id number] 00:00:00 Test Item Value Reference Range Interpretation Comments CHOLESTEROL (test code = 2210) 295 MG/DL TRIGLYCERIDES (test code = 2232) 218 MG/DL HDL CHOLESTEROL (test code = 2220) 46 MG/DL CALC LDL CHOL (test code = 2237) 205 MG/DL RISK RATIO LDL/HDL (test code = 4.47 RATIO 2238) LIPID [id number] 00:00:00 Test Item Value Reference Range Interpretation Comments CHOLESTEROL (test code = 2210) 295 MG/DL TRIGLYCERIDES (test code = 2232) 218 MG/DL HDL CHOLESTEROL (test code = 2220) 46 MG/DL CALC LDL CHOL (test code = 2237) 205 MG/DL RISK RATIO LDL/HDL (test code = 4.47 RATIO 2238) HEMOGLOBIN [id number] 00:00:00 Test Item Value Reference Range Interpretation Comments HEMOGLOBIN A1c (test code = 36180) 7.0 % HEMOGLOBIN [id number] 00:00:00 Test Item Value Reference Range Interpretation Comments HEMOGLOBIN A1c (test code = 75821) 7.0 % HEMOGLOBIN [id number] 00:00:00 Test Item Value Reference Range Interpretation Comments HEMOGLOBIN A1c (test code = 41569) 7.0 % [id number] 00:00:00 Test Item Value Reference Range Interpretation Comments TSH, THIRD GENERATION (test code 0.565 UIU/ML = 2821) [id number] 00:00:00 Test Item Value Reference Range Interpretation Comments TSH, THIRD GENERATION (test code 0.565 UIU/ML = 2821) [id number] 00:00:00 Test Item Value Reference Range Interpretation Comments TSH, THIRD GENERATION (test code 0.565 UIU/ML = 2821) COMPREHENSIVE METABOLIC [id number] 00:00:00 Test Item Value Reference Range Interpretation Comments GLUCOSE (test code = 2217) 109 MG/DL BUN (test code = 2208) 25 MG/DL CREATININE (test code = 2214) 0.78 MG/DL eGFR AMER. (test code 98 ML/MIN/1.73 = 05129) eGFR NON- AMER. (test 84 ML/MIN/1.73 code = 78300) CALC BUN/CREAT (test code = 32 RATIO [...] (test code = 2219) 25 U/L LIPID [id number] 00:00:00 Test Item Value Reference Range Interpretation Comments CHOLESTEROL (test code = 2210) 295 MG/DL TRIGLYCERIDES (test code = 2232) 218 MG/DL HDL CHOLESTEROL (test code = 2220) 46 MG/DL CALC LDL CHOL (test code = 2237) 205 MG/DL RISK RATIO LDL/HDL (test code = 4.47 RATIO 2238) HEMOGLOBIN [id number] 00:00:00 Test Item Value Reference Range Interpretation Comments HEMOGLOBIN A1c (test code = 53585) 7.0 % HEMOGLOBIN [id number] 00:00:00 Test Item Value Reference Range Interpretation Comments HEMOGLOBIN A1c (test code = 96832) 7.0 % [id number] 00:00:00 Test Item Value Reference Range Interpretation Comments TSH, THIRD GENERATION (test code 0.565 UIU/ML = 2821) [id number] 00:00:00 Test Item Value Reference Range Interpretation Comments TSH, THIRD GENERATION (test code 0.565 UIU/ML = 2821) COMPREHENSIVE METABOLIC [id number] 00:00:00 Test Item Value Reference Range Interpretation Comments GLUCOSE (test code = 2217) 109 MG/DL BUN (test code = 2208) 25 MG/DL CREATININE (test code = 2214) 0.78 MG/DL eGFR AMER. (test code 98 ML/MIN/1.73 = 75086) eGFR NON- AMER. (test 84 ML/MIN/1.73 code = 59803) CALC BUN/CREAT (test code = 32 RATIO 223) SODIUM (test code = 2231) 139 MEQ/L [...] = <0.2 MG/DL 2207) ALKALINE PHOSPHATASE (test 109 U/L code = 2204) AST (test code = 2218) 18 U/L ALT (test code = 2219) 25 U/L COMPREHENSIVE METABOLIC [id number] 00:00:00 Test Item Value Reference Range Interpretation Comments GLUCOSE (test code = 2217) 109 MG/DL BUN (test code = 2208) 25 MG/DL CREATININE (test code = 2214) 0.78 MG/DL eGFR AMER. (test code 98 ML/MIN/1.73 = 76585) eGFR NON- AMER. (test 84 ML/MIN/1.73 code = 32064) CALC BUN/CREAT (test code = 32 RATIO [...] (test code = 2219) 25 U/L LIPID [id number] 00:00:00 Test Item Value Reference Range Interpretation Comments CHOLESTEROL (test code = 2210) 295 MG/DL TRIGLYCERIDES (test code = 2232) 218 MG/DL HDL CHOLESTEROL (test code = 2220) 46 MG/DL CALC LDL CHOL (test code = 2237) 205 MG/DL RISK RATIO LDL/HDL (test code = 4.47 RATIO 2238) LIPID [id number] 00:00:00 Test Item Value Reference Range Interpretation Comments CHOLESTEROL (test code = 2210) 295 MG/DL TRIGLYCERIDES (test code = 2232) 218 MG/DL HDL CHOLESTEROL (test code = 2220) 46 MG/DL CALC LDL CHOL (test code = 2237) 205 MG/DL RISK RATIO LDL/HDL (test code = 4.47 RATIO 2238) HEMOGLOBIN [id number] 00:00:00 Test Item Value Reference Range Interpretation Comments HEMOGLOBIN A1c (test code = 78595) 7.0 % HEMOGLOBIN [id number] 00:00:00 Test Item Value Reference Range Interpretation Comments HEMOGLOBIN A1c (test code = 18736) 7.0 % HEMOGLOBIN [id number] 00:00:00 Test Item Value Reference Range Interpretation Comments HEMOGLOBIN A1c (test code = 17680) 7.0 % [id number] 00:00:00 Test Item Value Reference Range Interpretation Comments TSH, THIRD GENERATION (test code 0.565 UIU/ML = 2821) [id number] 00:00:00 Test Item Value Reference Range Interpretation Comments TSH, THIRD GENERATION (test code 0.565 UIU/ML = 2821) [id number] 00:00:00 Test Item Value Reference Range Interpretation Comments TSH, THIRD GENERATION (test code 0.565 UIU/ML = 2821) [id number] 00:00:00 Test Item Value Reference Range Interpretation Comments TSH, THIRD GENERATION (test code 0.379 UIU/ML = 2821) [id number] 00:00:00 Test Item Value Reference Range Interpretation Comments TSH, THIRD GENERATION (test code 0.379 UIU/ML = 2821) [id number] 00:00:00 Test Item Value Reference Range Interpretation Comments TSH, THIRD GENERATION (test code 0.379 UIU/ML = 2821) [id number] 00:00:00 Test Item Value Reference Range Interpretation Comments TSH, THIRD GENERATION (test code 0.379 UIU/ML = 2821) [id number] 00:00:00 Test Item Value Reference Range Interpretation Comments TSH, THIRD GENERATION (test code 0.379 UIU/ML = 2821) [id number] 00:00:00 Test Item Value Reference Range Interpretation Comments TSH, THIRD GENERATION (test code 0.379 UIU/ML = 2821) [id number] 00:00:00 Test Item Value Reference Range Interpretation Comments TSH, THIRD GENERATION (test code 0.379 UIU/ML = 2821) [id number] 00:00:00 Test Item Value Reference Range Interpretation Comments TSH, THIRD GENERATION (test code 0.379 UIU/ML = 2821) CULTURE, [id number] 00:00:00 Test Item Value Reference Range Interpretation Comments CULTURE, URINE (test SPECIMEN NUMBER: code = 83517) [id number] CULTURE, [id number] 00:00:00 Test Item Value Reference Range Interpretation Comments CULTURE, URINE (test SPECIMEN NUMBER: code = 98332) [id number] CULTURE, [id number] 00:00:00 Test Item Value Reference Range Interpretation Comments CULTURE, URINE (test SPECIMEN NUMBER: code = 22547) [id number] CULTURE, [id number] 00:00:00 Test Item Value Reference Range Interpretation Comments CULTURE, URINE (test SPECIMEN NUMBER: code = 67259) [id number] CULTURE, [id number] 00:00:00 Test Item Value Reference Range Interpretation Comments CULTURE, URINE (test SPECIMEN NUMBER: code = 86037) [id number] COMPREHENSIVE METABOLIC [id number] 00:00:00 Test Item Value Reference Range Interpretation Comments GLUCOSE (test code = 2217) 128 MG/DL BUN (test code = 2208) 26 MG/DL CREATININE (test code = 2214) 0.92 MG/DL eGFR AMER. (test code 81 ML/MIN/1.73 = 73678) eGFR NON- AMER. (test 70 ML/MIN/1.73 code = 67609) CALC BUN/CREAT (test code = 28 RATIO [...] code = 2219) 29 U/L COMPREHENSIVE METABOLIC [id number] 00:00:00 Test Item Value Reference Range Interpretation Comments GLUCOSE (test code = 2217) 128 MG/DL BUN (test code = 2208) 26 MG/DL CREATININE (test code = 2214) 0.92 MG/DL eGFR AMER. (test code 81 ML/MIN/1.73 = 16737) eGFR NON- AMER. (test 70 ML/MIN/1.73 code = 91965) CALC BUN/CREAT (test code = 28 RATIO [...] code = 2219) 29 U/L ACUTE HEPATITIS [id number] 00:00:00 Test Item Value Reference Range Interpretation Comments HEPATITIS A IgM (test code = NON-REACTIVE 27333) HEPATITIS B CORE IgM (test code NON-REACTIVE = 4644) HEPATITIS B SURF AG (test code = NON-REACTIVE 2739) HEPATITIS C ANTIBODY (test code NON-REACTIVE = 4675) INTERPRETATION HEPATITIS A: (NOTE) (test code = 2552) INTERPRETATION HEPATITIS B: (NOTE) (test code = 76869) INTERPRETATION HEPATITIS C: (NOTE) (test code = 26662) ACUTE HEPATITIS [id number] 00:00:00 Test Item Value Reference Range Interpretation Comments HEPATITIS A IgM (test code = NON-REACTIVE 63082) HEPATITIS B CORE IgM (test code NON-REACTIVE = 4644) HEPATITIS B SURF AG (test code = NON-REACTIVE 2739) HEPATITIS C ANTIBODY (test code NON-REACTIVE = 4675) INTERPRETATION HEPATITIS A: (NOTE) (test code = 2552) INTERPRETATION HEPATITIS B: (NOTE) (test code = 51581) INTERPRETATION HEPATITIS C: (NOTE) (test code = 58909) [id number] 00:00:00 Test Item Value Reference Range Interpretation Comments AMYLASE (test code = 2205) 32 U/L [id number] 00:00:00 Test Item Value Reference Range Interpretation Comments AMYLASE (test code = 2205) 32 U/L [id number] 00:00:00 Test Item Value Reference Range Interpretation Comments LIPASE (test code = 2058) 22 U/L [id number] 00:00:00 Test Item Value Reference Range Interpretation Comments LIPASE (test code = 2058) 22 U/L [id number] 00:00:00 Test Item Value Reference Range Interpretation Comments LIPASE (test code = 2058) 22 U/L COMPREHENSIVE METABOLIC [id number] 00:00:00 Test Item Value Reference Range Interpretation Comments GLUCOSE (test code = 2217) 128 MG/DL BUN (test code = 2208) 26 MG/DL CREATININE (test code = 2214) 0.92 MG/DL eGFR AMER. (test code 81 ML/MIN/1.73 = 79732) eGFR NON- AMER. (test 70 ML/MIN/1.73 code = 22782) CALC BUN/CREAT (test code = 28 RATIO 5) SODIUM (test code = 2231) 138 MEQ/L [...] code = 2219) 29 U/L ACUTE HEPATITIS [id number] 00:00:00 Test Item Value Reference Range Interpretation Comments HEPATITIS A IgM (test code = NON-REACTIVE 98985) HEPATITIS B CORE IgM (test code NON-REACTIVE = 4644) HEPATITIS B SURF AG (test code = NON-REACTIVE 8391) HEPATITIS C ANTIBODY (test code NON-REACTIVE = 7221) INTERPRETATION HEPATITIS A: (NOTE) (test code = 2552) INTERPRETATION HEPATITIS B: (NOTE) (test code = 11517) INTERPRETATION HEPATITIS C: (NOTE) (test code = 75525) [id number] 00:00:00 Test Item Value Reference Range Interpretation Comments AMYLASE (test code = 2205) 32 U/L [id number] 00:00:00 Test Item Value Reference Range Interpretation Comments LIPASE (test code = 2058) 22 U/L [id number] 00:00:00 Test Item Value Reference Range Interpretation Comments LIPASE (test code = 2058) 22 U/L COMPREHENSIVE METABOLIC [id number] 00:00:00 Test Item Value Reference Range Interpretation Comments GLUCOSE (test code = 2217) 128 MG/DL BUN (test code = 2208) 26 MG/DL CREATININE (test code = 2214) 0.92 MG/DL eGFR AMER. (test code 81 ML/MIN/1.73 = 49555) eGFR NON- AMER. (test 70 ML/MIN/1.73 code = 09878) CALC BUN/CREAT (test code = 28 RATIO [...] code = 2219) 29 U/L COMPREHENSIVE METABOLIC [id number] 00:00:00 Test Item Value Reference Range Interpretation Comments GLUCOSE (test code = 2217) 128 MG/DL BUN (test code = 2208) 26 MG/DL CREATININE (test code = 2214) 0.92 MG/DL eGFR AMER. (test code 81 ML/MIN/1.73 = 10895) eGFR NON- AMER. (test 70 ML/MIN/1.73 code = 40083) CALC BUN/CREAT (test code = 28 RATIO [...] code = 2219) 29 U/L ACUTE HEPATITIS [id number] 00:00:00 Test Item Value Reference Range Interpretation Comments HEPATITIS A IgM (test code = NON-REACTIVE 37547) HEPATITIS B CORE IgM (test code NON-REACTIVE = 4644) HEPATITIS B SURF AG (test code = NON-REACTIVE 2739) HEPATITIS C ANTIBODY (test code NON-REACTIVE = 4675) INTERPRETATION HEPATITIS A: (NOTE) (test code = 2552) INTERPRETATION HEPATITIS B: (NOTE) (test code = 45146) INTERPRETATION HEPATITIS C: (NOTE) (test code = 28660) ACUTE HEPATITIS [id number] 00:00:00 Test Item Value Reference Range Interpretation Comments HEPATITIS A IgM (test code = NON-REACTIVE 79876) HEPATITIS B CORE IgM (test code NON-REACTIVE = 4644) HEPATITIS B SURF AG (test code = NON-REACTIVE 2739) HEPATITIS C ANTIBODY (test code NON-REACTIVE = 4675) INTERPRETATION HEPATITIS A: (NOTE) (test code = 2552) INTERPRETATION HEPATITIS B: (NOTE) (test code = 97136) INTERPRETATION HEPATITIS C: (NOTE) (test code = 97557) [id number] 00:00:00 Test Item Value Reference Range Interpretation Comments AMYLASE (test code = 2205) 32 U/L [id number] 00:00:00 Test Item Value Reference Range Interpretation Comments AMYLASE (test code = 2205) 32 U/L [id number] 00:00:00 Test Item Value Reference Range Interpretation Comments LIPASE (test code = 2058) 22 U/L [id number] 00:00:00 Test Item Value Reference Range Interpretation Comments LIPASE (test code = 2058) 22 U/L [id number] 00:00:00 Test Item Value Reference Range Interpretation Comments LIPASE (test code = 2058) 22 U/L [id number] 00:00:00 Test Item Value Reference Range Interpretation Comments TSH, THIRD GENERATION (test code 4.890 UIU/ML = 2821) [id number] 00:00:00 Test Item Value Reference Range Interpretation Comments TSH, THIRD GENERATION (test code 4.890 UIU/ML = 2821) [id number] 00:00:00 Test Item Value Reference Range Interpretation Comments TSH, THIRD GENERATION (test code 4.890 UIU/ML = 2821) COMPREHENSIVE METABOLIC [id number] 00:00:00 Test Item Value Reference Range Interpretation Comments GLUCOSE (test code = 2217) 121 MG/DL BUN (test code = 2208) 40 MG/DL CREATININE (test code = 2214) 1.48 MG/DL eGFR AMER. (test code 45 ML/MIN/1.73 = 00062) eGFR NON- AMER. (test 39 ML/MIN/1.73 code = 06740) CALC BUN/CREAT (test code = 27 RATIO [...] = 0.2 MG/DL 220) ALKALINE PHOSPHATASE (test 99 U/L code = 2204) AST (test code = 2218) 15 U/L ALT (test code = 2219) 20 U/L COMPREHENSIVE METABOLIC [id number] 00:00:00 Test Item Value Reference Range Interpretation Comments GLUCOSE (test code = 2217) 121 MG/DL BUN (test code = 2208) 40 MG/DL CREATININE (test code = 2214) 1.48 MG/DL eGFR AMER. (test code 45 ML/MIN/1.73 = 58495) eGFR NON- AMER. (test 39 ML/MIN/1.73 code = 48859) CALC BUN/CREAT (test code = 27 RATIO [...] ALT (test code = 2219) 20 U/L [id number] 00:00:00 Test Item Value Reference Range Interpretation Comments TSH, THIRD GENERATION (test code 4.890 UIU/ML = 2821) [id number] 00:00:00 Test Item Value Reference Range Interpretation Comments TSH, THIRD GENERATION (test code 4.890 UIU/ML = 2821) COMPREHENSIVE METABOLIC [id number] 00:00:00 Test Item Value Reference Range Interpretation Comments GLUCOSE (test code = 2217) 121 MG/DL BUN (test code = 2208) 40 MG/DL CREATININE (test code = 2214) 1.48 MG/DL eGFR AMER. (test code 45 ML/MIN/1.73 = 06992) eGFR NON- AMER. (test 39 ML/MIN/1.73 code = 75158) CALC BUN/CREAT (test code = 27 RATIO [...] ALT (test code = 2219) 20 U/L [id number] 00:00:00 Test Item Value Reference Range Interpretation Comments TSH, THIRD GENERATION (test code 4.890 UIU/ML = 2821) [id number] 00:00:00 Test Item Value Reference Range Interpretation Comments TSH, THIRD GENERATION (test code 4.890 UIU/ML = 2821) [id number] 00:00:00 Test Item Value Reference Range Interpretation Comments TSH, THIRD GENERATION (test code 4.890 UIU/ML = 2821) COMPREHENSIVE METABOLIC [id number] 00:00:00 Test Item Value Reference Range Interpretation Comments GLUCOSE (test code = 2217) 121 MG/DL BUN (test code = 2208) 40 MG/DL CREATININE (test code = 2214) 1.48 MG/DL eGFR AMER. (test code 45 ML/MIN/1.73 = 74019) eGFR NON- AMER. (test 39 ML/MIN/1.73 code = 70640) CALC BUN/CREAT (test code = 27 RATIO 2235) SODIUM (test code = 2231) 143 MEQ/L POTASSIUM (test code = 2228) 5.3 MEQ/L CHLORIDE (test code = 2215) 100 MEQ/L CARBON DIOXIDE (test code = 27 MEQ/L 220) CALCIUM (test code = 2209) 9.8 MG/DL PROTEIN, TOTAL (test code = 8.1 G/DL 222) ALBUMIN (test code = 2201) 5.3 G/DL CALC GLOBULIN (test code = 2.8 G/DL 2240) CALC A/G RATIO (test code = 1.9 RATIO 2234) BILIRUBIN, TOTAL (test code = 0.2 MG/DL 2206) ALKALINE PHOSPHATASE (test 99 U/L code = 2204) AST (test code = 2218) 15 U/L ALT (test code = 2219) 20 U/L COMPREHENSIVE METABOLIC [id number] 00:00:00 Test Item Value Reference Range Interpretation Comments GLUCOSE (test code = 2217) 121 MG/DL BUN (test code = 2208) 40 MG/DL CREATININE (test code = 2214) 1.48 MG/DL eGFR AMER. (test code 45 ML/MIN/1.73 = 54277) eGFR NON- AMER. (test 39 ML/MIN/1.73 code = 11264) CALC BUN/CREAT (test code = 27 RATIO [...] (test code = 2219) 20 U/L LIPID [id number] 00:00:00 Test Item Value Reference Range Interpretation Comments CHOLESTEROL (test code = 2210) 261 MG/DL TRIGLYCERIDES (test code = 2232) 165 MG/DL HDL CHOLESTEROL (test code = 2220) 58 MG/DL CALC LDL CHOL (test code = 2237) 170 MG/DL RISK RATIO LDL/HDL (test code = 2.93 RATIO 2238) LIPID [id number] 00:00:00 Test Item Value Reference Range Interpretation Comments CHOLESTEROL (test code = 2210) 261 MG/DL TRIGLYCERIDES (test code = 2232) 165 MG/DL HDL CHOLESTEROL (test code = 2220) 58 MG/DL CALC LDL CHOL (test code = 2237) 170 MG/DL RISK RATIO LDL/HDL (test code = 2.93 RATIO 2238) CBC W/AUTO [id number] 00:00:00 Test Item Value Reference Range Interpretation [...] code = 1015) 378 K/UL CBC W/AUTO [id number] 00:00:00 Test Item Value Reference Range Interpretation [...] code = 1015) 378 K/UL CBC W/AUTO [id number] 00:00:00 Test Item Value Reference Range Interpretation [...] (test code = 1015) 378 K/UL HEMOGLOBIN [id number] 00:00:00 Test Item Value Reference Range Interpretation Comments HEMOGLOBIN A1c (test code = 19897) 6.4 % HEMOGLOBIN [id number] 00:00:00 Test Item Value Reference Range Interpretation Comments HEMOGLOBIN A1c (test code = 09245) 6.4 % HEMOGLOBIN [id number] 00:00:00 Test Item Value Reference Range Interpretation Comments HEMOGLOBIN A1c (test code = 91157) 6.4 % [id number] 00:00:00 Test Item Value Reference Range Interpretation Comments TSH (test code = 2821) 5.290 UIU/ML [id number] 00:00:00 Test Item Value Reference Range Interpretation Comments TSH (test code = 2821) 5.290 UIU/ML [id number] 00:00:00 Test Item Value Reference Range Interpretation Comments TSH (test code = 2821) 5.290 UIU/ML LIPID [id number] 00:00:00 Test Item Value Reference Range Interpretation Comments CHOLESTEROL (test code = 2210) 261 MG/DL TRIGLYCERIDES (test code = 2232) 165 MG/DL HDL CHOLESTEROL (test code = 2220) 58 MG/DL CALC LDL CHOL (test code = 2237) 170 MG/DL RISK RATIO LDL/HDL (test code = 2.93 RATIO 2238) CBC W/AUTO [id number] 00:00:00 Test Item Value Reference Range Interpretation [...] code = 1015) 378 K/UL CBC W/AUTO [id number] 00:00:00 Test Item Value Reference Range Interpretation [...] (test code = 1015) 378 K/UL HEMOGLOBIN [id number] 00:00:00 Test Item Value Reference Range Interpretation Comments HEMOGLOBIN A1c (test code = 30511) 6.4 % HEMOGLOBIN [id number] 00:00:00 Test Item Value Reference Range Interpretation Comments HEMOGLOBIN A1c (test code = 15335) 6.4 % [id number] 00:00:00 Test Item Value Reference Range Interpretation Comments TSH (test code = 2821) 5.290 UIU/ML [id number] 00:00:00 Test Item Value Reference Range Interpretation Comments TSH (test code = 2821) 5.290 UIU/ML LIPID [id number] 00:00:00 Test Item Value Reference Range Interpretation Comments CHOLESTEROL (test code = 2210) 261 MG/DL TRIGLYCERIDES (test code = 2232) 165 MG/DL HDL CHOLESTEROL (test code = 2220) 58 MG/DL CALC LDL CHOL (test code = 2237) 170 MG/DL RISK RATIO LDL/HDL (test code = 2.93 RATIO 2238) LIPID [id number] 00:00:00 Test Item Value Reference Range Interpretation Comments CHOLESTEROL (test code = 2210) 261 MG/DL TRIGLYCERIDES (test code = 2232) 165 MG/DL HDL CHOLESTEROL (test code = 2220) 58 MG/DL CALC LDL CHOL (test code = 2237) 170 MG/DL RISK RATIO LDL/HDL (test code = 2.93 RATIO 2238) CBC W/AUTO [id number] 00:00:00 Test Item Value Reference Range Interpretation [...] code = 1015) 378 K/UL CBC W/AUTO [id number] 00:00:00 Test Item Value Reference Range Interpretation [...] code = 1015) 378 K/UL CBC W/AUTO [id number] 00:00:00 Test Item Value Reference Range Interpretation [...] (test code = 1015) 378 K/UL HEMOGLOBIN [id number] 00:00:00 Test Item Value Reference Range Interpretation Comments HEMOGLOBIN A1c (test code = 67885) 6.4 % HEMOGLOBIN [id number] 00:00:00 Test Item Value Reference Range Interpretation Comments HEMOGLOBIN A1c (test code = 36883) 6.4 % HEMOGLOBIN [id number] 00:00:00 Test Item Value Reference Range Interpretation Comments HEMOGLOBIN A1c (test code = 87898) 6.4 % [id number] 00:00:00 Test Item Value Reference Range Interpretation Comments TSH (test code = 2821) 5.290 UIU/ML [id number] 00:00:00 Test Item Value Reference Range Interpretation Comments TSH (test code = 2821) 5.290 UIU/ML [id number] 00:00:00 Test Item Value Reference Range Interpretation [...] code = 2821) 1.030 UIU/ML COMPREHENSIVE METABOLIC [id number] 00:00:00 Test Item Value Reference Range Interpretation Comments GLUCOSE (test code = 2217) 106 MG/DL BUN (test code = 2208) 23 MG/DL CREATININE (test code = 2214) 0.66 MG/DL eGFR AMER. (test code 114 ML/MIN/1.73 = 79330) eGFR NON- AMER. (test 99 ML/MIN/1.73 code = 58360) CALC BUN/CREAT (test code = 35 RATIO [...] code = 2219) 31 U/L COMPREHENSIVE METABOLIC [id number] 00:00:00 Test Item Value Reference Range Interpretation Comments GLUCOSE (test code = 2217) 106 MG/DL BUN (test code = 2208) 23 MG/DL CREATININE (test code = 2214) 0.66 MG/DL eGFR AMER. (test code 114 ML/MIN/1.73 = 02735) eGFR NON- AMER. (test 99 ML/MIN/1.73 code = 21757) CALC BUN/CREAT (test code = 35 RATIO [...] code = 2821) 0.335 UIU/ML COMPREHENSIVE METABOLIC [id number] 00:00:00 Test Item Value Reference Range Interpretation Comments GLUCOSE (test code = 2217) 106 MG/DL BUN (test code = 2208) 23 MG/DL CREATININE (test code = 2214) 0.66 MG/DL eGFR AMER. (test code 114 ML/MIN/1.73 = 88366) eGFR NON- AMER. (test 99 ML/MIN/1.73 code = 27529) CALC BUN/CREAT (test code = 35 RATIO 2234) SODIUM (test code = 2231) [...] code = 2821) 0.335 UIU/ML COMPREHENSIVE METABOLIC [id number] 00:00:00 Test Item Value Reference Range Interpretation Comments GLUCOSE (test code = 2217) 106 MG/DL BUN (test code = 2208) 23 MG/DL CREATININE (test code = 2214) 0.66 MG/DL eGFR AMER. (test code 114 ML/MIN/1.73 = 97346) eGFR NON- AMER. (test 99 ML/MIN/1.73 code = 09633) CALC BUN/CREAT (test code = 35 RATIO 2234) SODIUM (test code = 2231) [...] code = 2219) 31 U/L COMPREHENSIVE METABOLIC [id number] 00:00:00 Test Item Value Reference Range Interpretation Comments GLUCOSE (test code = 2217) 106 MG/DL BUN (test code = 2208) 23 MG/DL CREATININE (test code = 2214) 0.66 MG/DL eGFR AMER. (test code 114 ML/MIN/1.73 = 00126) eGFR NON- AMER. (test 99 ML/MIN/1.73 code = 57303) CALC BUN/CREAT (test code = 35 RATIO [...] code = 2821) 0.335 UIU/ML COMPREHENSIVE METABOLIC [id number] 00:00:00 Test Item Value Reference Range Interpretation Comments GLUCOSE (test code = 2217) 103 MG/DL BUN (test code = 2208) 15 MG/DL CREATININE (test code = 2214) 0.77 MG/DL eGFR AMER. (test code 101 ML/MIN/1.73 = 25866) eGFR NON- AMER. (test 87 ML/MIN/1.73 code = 30046) CALC BUN/CREAT (test code = 19 RATIO [...] code = 2219) 24 U/L COMPREHENSIVE METABOLIC [id number] 00:00:00 Test Item Value Reference Range Interpretation Comments GLUCOSE (test code = 2217) 103 MG/DL BUN (test code = 2208) 15 MG/DL CREATININE (test code = 2214) 0.77 MG/DL eGFR AMER. (test code 101 ML/MIN/1.73 = 62342) eGFR NON- AMER. (test 87 ML/MIN/1.73 code = 89832) CALC BUN/CREAT (test code = 19 RATIO [...] BILIRUBIN, TOTAL (test code = 0.1 MG/DL 7) ALKALINE PHOSPHATASE (test 83 U/L code = [...] code = 2821) 0.424 UIU/ML COMPREHENSIVE METABOLIC [id number] 00:00:00 Test Item Value Reference Range Interpretation Comments GLUCOSE (test code = 2217) 103 MG/DL BUN (test code = 2208) 15 MG/DL CREATININE (test code = 2214) 0.77 MG/DL eGFR AMER. (test code 101 ML/MIN/1.73 = 36285) eGFR NON- AMER. (test 87 ML/MIN/1.73 code = 18268) CALC BUN/CREAT (test code = 19 RATIO [...] code = 2821) 0.424 UIU/ML COMPREHENSIVE METABOLIC [id number] 00:00:00 Test Item Value Reference Range Interpretation Comments GLUCOSE (test code = 2217) 103 MG/DL BUN (test code = 2208) 15 MG/DL CREATININE (test code = 2214) 0.77 MG/DL eGFR AMER. (test code 101 ML/MIN/1.73 = 93350) eGFR NON- AMER. (test 87 ML/MIN/1.73 code = 00036) CALC BUN/CREAT (test code = 19 RATIO [...] code = 2219) 24 U/L COMPREHENSIVE METABOLIC [id number] 00:00:00 Test Item Value Reference Range Interpretation Comments GLUCOSE (test code = 2217) 103 MG/DL BUN (test code = 2208) 15 MG/DL CREATININE (test code = 2214) 0.77 MG/DL eGFR AMER. (test code 101 ML/MIN/1.73 = 05467) eGFR NON- AMER. (test 87 ML/MIN/1.73 code = 22267) CALC BUN/CREAT (test code = 19 RATIO [...] CALC GLOBULIN (test code = 2.1 G/DL 0) CALC A/G RATIO (test code [...] (test code = 2821) 0.424 UIU/ML CULTURE, [id number] 00:00:00 Test Item Value Reference Range Interpretation Comments CULTURE, URINE (test SPECIMEN NUMBER: code = 93364) [id number] CULTURE, [id number] 00:00:00 Test Item Value Reference Range Interpretation Comments CULTURE, URINE (test SPECIMEN NUMBER: code = 49885) [id number] CULTURE, [id number] 00:00:00 Test Item Value Reference Range Interpretation Comments CULTURE, URINE (test SPECIMEN NUMBER: code = 45137) [id number] CULTURE, [id number] 00:00:00 Test Item Value Reference Range Interpretation Comments CULTURE, URINE (test SPECIMEN NUMBER: code = 68641) [id number] CULTURE, [id number] 00:00:00 Test Item Value Reference Range Interpretation Comments CULTURE, URINE (test SPECIMEN NUMBER: code = 38637) [id number] CULTURE, [id number] 00:00:00 Test Item Value Reference Range Interpretation Comments CULTURE, URINE (test SPECIMEN NUMBER: code = 92616) [id number] CULTURE, [id number] 00:00:00 Test Item Value Reference Range Interpretation Comments CULTURE, URINE (test SPECIMEN NUMBER: code = 02422) [id number] CULTURE, [id number] 00:00:00 Test Item Value Reference Range Interpretation Comments CULTURE, URINE (test SPECIMEN NUMBER: code = 46145) [id number] CULTURE, [id number] 00:00:00 Test Item Value Reference Range Interpretation Comments CULTURE, URINE (test SPECIMEN NUMBER: code = 03568) [id number] CULTURE, [id number] 00:00:00 Test Item Value Reference Range Interpretation Comments CULTURE, URINE (test SPECIMEN NUMBER: code = 43851) [id number]
[2022-01-12] MEDS ORDERED: THIAMINE 200 MG/2 ML INJ ONE (08:17)
[2022-01-12] MEDS ORDERED: NA CHLORIDE 0.9% 1,000 ML ONE (08:17)
[2022-01-12] MEDS ORDERED: FOLIC ACID 5 MG/ML VIAL ONE (08:17)
[2022-01-12] MEDS ORDERED: MULTIVITAMINS 10 ML VIAL (INJ) IV ONE (08:17)
[2022-01-12] MEDS ORDERED: PANTOPRAZOLE 40 MG INJ ONE (08:19)
[2022-01-12 08:45] LABS: Absolute Lymphocytes (CBC) 2.1 K/uL (0.7-4.9); Hematocrit 39.1 % (36.0-45.0); Lymphocytes % 23.9 % (15.3-44.8); MCV 92.2 fL (80-100); MPV 6.5 fL (7.6-11.3); RBC Red Blood Cell Count 4.24 M/uL (3.86-4.86)
[2022-01-12 09:00] LABS: Albumin 3.7 g/dL (3.4-5.0); Bilirubin Total 0.2 mg/dL (0.2-1.0); Potassium 3.9 mmol/L (3.5-5.1); Protein, Total 7.9 g/dL (6.4-8.2)
--- NOTE | 2022-01-12 09:31 | EDPHYS ---
Physician Documentation [facility] Name: Jaimie Amanda Age: 61 yrs Sex: Female : 1960 Arrival Date: 01/12/2022 Time: 07:56 Bed 8 Private MD: ED Physician Wilfrid Singh HPI: 01/12 08:09 This 61 yrs old Female presents to ER via Unassigned with complaints of Abdominal Pain. snw 08:09 The patient presents with abdominal pain in the epigastric area, in the upper abdomen. snw Onset: The symptoms/episode began/occurred gradually. The symptoms do not radiate. Associated signs and symptoms: Pertinent positives: nausea. The symptoms are described as burning. Severity of pain: At its worst the pain was moderate. The patient has experienced similar episodes in the past, chronically. It is unknown whether or not the patient has recently seen a physician. Historical: - Allergies: 08:24 No Known Allergies; mb8 - PMHx: 08:24 Alcoholism; Anxiety; Hypertensive disorder; Hypothyroidism; low NA; mb8 - PSHx: 08:24 Thyroidectomy; mb8 - Social history:: Smoking status: . ROS: 08:08 Constitutional: Negative for fever, chills, and weight loss, Eyes: Negative for injury, snw pain, redness, and discharge, ENT: Negative for injury, pain, and discharge, Neck: Negative for injury, pain, and swelling, Cardiovascular: Negative for chest pain, palpitations, and edema, Respiratory: Negative for shortness of breath, cough, wheezing, and pleuritic chest pain, Back: Negative for injury and pain, : Negative for injury, bleeding, discharge, and swelling, MS/Extremity: Negative for injury and deformity, Skin: Negative for injury, rash, and discoloration, Neuro: Negative for headache, weakness, numbness, tingling, and seizure, Psych: Negative for depression, anxiety, suicide ideation, homicidal ideation, and hallucinations. 08:08 Abdomen/GI: Positive for abdominal pain, nausea. Exam: 08:07 Constitutional: This is a well developed, well nourished patient who is awake, alert, snw and in no acute distress. Head/Face: Normocephalic, atraumatic. Eyes: Pupils equal round and reactive to light, extra-ocular motions intact. Lids and lashes normal. Conjunctiva and sclera are non-icteric and not injected. Cornea within normal limits. Periorbital areas with no swelling, redness, or edema. ENT: Nares patent. No nasal discharge, no septal abnormalities noted. Tympanic membranes are normal and external auditory canals are clear. Oropharynx with no redness, swelling, or masses, exudates, or evidence of obstruction, uvula midline. Mucous membranes moist. Neck: Trachea midline, no thyromegaly or masses palpated, and no cervical lymphadenopathy. Supple, full range of motion without nuchal rigidity, or vertebral point tenderness. No Meningismus. Chest/axilla: Normal chest wall appearance and motion. Nontender with no deformity. No lesions are appreciated. Cardiovascular: Regular rate and rhythm with a normal S1 and S2. No gallops, murmurs, or rubs. Normal PMI, no JVD. No pulse deficits. Back: No spinal tenderness. No costovertebral tenderness. Full range of motion. Skin: Warm, dry with normal turgor. Normal color with no rashes, no lesions, and no evidence of cellulitis. MS/ Extremity: Pulses equal, no cyanosis. Neurovascular intact. Full, normal range of motion. Neuro: Awake and alert, GCS 15, oriented to person, place, time, and situation. Cranial nerves II-XII grossly intact. Motor strength 5/5 in all extremities. Sensory grossly intact. Cerebellar exam normal. Normal gait. 08:07 Respiratory: the patient does not display signs of respiratory distress, Respirations: normal, Breath sounds: wheezing: expiratory 08:07 Abdomen/GI: Inspection: abdomen appears normal, Bowel sounds: normal, Palpation: mild abdominal tenderness, in all quadrants. Vital Signs: 08:12 BP 177 / 85; Pulse 86; Resp 18; Temp 97.4; Pulse Ox 96% on R/A; Pain 8/10; mb8 08:45 BP 116 / 65; Pulse 80; Resp 16; Pulse Ox 97% ; Pain 6/10; mb8 09:30 BP 146 / 79; Pulse 95; Resp 16; Temp 98; Pulse Ox 99% ; Pain 0/10; mb8 MDM: 07:58 Patient medically screened. snw 09:32 Data reviewed: vital signs, nurses notes. Data interpreted: Pulse oximetry: on room air snw is 97 %. Interpretation: normal. Counseling: I had a detailed discussion with the patient and/or guardian regarding: the historical points, exam findings, and any diagnostic results supporting the discharge/admit diagnosis, to return to the emergency department if symptoms worsen or persist or if there are any questions or concerns that arise at home. Special discussion: Based on the patient's Hx, exam, and Dx evaluation, there is no indication for emergent surgery or inpatient Tx. It is understood by the patient/guardian that if the Sx's persist or worsen they need to return immediately for re-evaluation. Based on the history and exam findings, there is no indication for further emergent testing or inpatient evaluation. I discussed with the patient/guardian the need to see the it integration architect for further evaluation of the symptoms. I discussed with the patient/guardian the need to see the primary care provider for further evaluation of the symptoms. 01/12 08:01 Order name: CMP; Complete Time: 09:29 snw 01/12 08:01 Order name: CBC with Diff; Complete Time: :29 snw 01/12 08:01 Order name: ETOH Level; Complete Time: 12:36 snw Administered Medications: 08:20 Drug: ProTONIX (pantoprazole) 40 mg Route: IVP; Site: left wrist; mb8 09:41 Follow up: Response: No adverse reaction; Pain is decreased mb8 08:23 Drug: Banana Bag - (NS 0.9% 1000 ml, foLIC Acid 1 mg, Thiamine 100 mg, Multivitamin 1 mb8 amp) Route: IV; Rate: 250 ml/hr; Site: left wrist; 09:35 Follow up: Response: No adverse reaction; IV Status: Completed infusion mb8 Disposition: 17:13 Co-signature as Attending Physician, Wilfrid PEDRAZA was immediately available onsite ms3 in the emergency department for consultation in the care of the patient. Disposition Summary: 01/12/22 09:30 Discharge Ordered Location: Home snw Condition: Stable snw Diagnosis - Abdominal pain, Generalized snw Followup: snw - With: Emergency Department - When: As needed - Reason: Worsening of condition Followup: snw - With: Private Physician - When: 2 - 3 days - Reason: Recheck today's complaints, Continuance of care, Re-evaluation by your physician Discharge Instructions: - Discharge Summary Sheet snw - Abdominal Pain, Adult snw - Gas and Gas Pains, Pediatric snw - Upson Diet snw Forms: - Medication Reconciliation Form snw - Thank You Letter snw - Antibiotic Education snw - Prescription Opioid Use snw Prescriptions: - dicyclomine 20 mg Oral Tablet - take 1 tablet by ORAL route 3 times per day; 20 tablet; Refills: 0, Product snw Selection Permitted - Protonix 40 mg Oral Tablet - take 1 tablet by ORAL route once daily; 30 tablet; Refills: 0, Product snw Selection Permitted Signatures: Dispatcher [employer] EDMS Fawn Torres, LABORER OPERATOR-C LABORER OPERATOR-Csnw Wilfrid Singh DO DO ms3 Abundio Worley, RN RN mb8
--- NOTE | 2022-01-12 09:31 | ER ---
Nurse's Notes [facility] Name: Jaimie Amanda Age: 61 yrs Sex: Female : 1960 Arrival Date: 01/12/2022 Time: 07:56 Bed 8 Private MD: Diagnosis: Abdominal pain, Generalized Presentation: 01/12 08:12 Chief complaint: Patient states: abdominal pain RLQ. Coronavirus screen: Vaccine mb8 status: Patient reports receiving the 2nd dose of the covid vaccine. Ebola Screen: Patient negative for fever greater than or equal to 101.5 degrees Fahrenheit, and additional compatible Ebola Virus Disease symptoms Patient denies exposure to infectious person. Patient denies travel to an Ebola-affected area in the 21 days before illness onset. Initial Sepsis Screen: Does the patient meet any 2 criteria? No. Patient's initial sepsis screen is negative. Does the patient have a suspected source of infection? No. Patient's initial sepsis screen is negative. Risk Assessment: Do you want to hurt yourself or someone else? Patient reports no desire to harm self or others. Onset of symptoms was January 12, 2022. 08:12 Method Of Arrival: Ambulatory mb8 08:12 Acuity: ZHEN 3 mb8 Triage Assessment: 08:13 General: Appears in no apparent distress. Behavior is calm, cooperative, appropriate mb8 for age. Pain: Complains of pain in abdomen. GI: Reports lower abdominal pain. Historical: - Allergies: 08:24 No Known Allergies; mb8 - PMHx: 08:24 Alcoholism; Anxiety; Hypertensive disorder; Hypothyroidism; low NA; mb8 - PSHx: 08:24 Thyroidectomy; mb8 - Social history:: Smoking status: . Screenin:13 Abuse screen: Denies threats or abuse. Denies injuries from another. Nutritional mb8 screening: No deficits noted. Tuberculosis screening: No symptoms or risk factors identified. Fall Risk None identified. Assessment: 08:13 GI: Bowel sounds present X 4 quads. Abd is soft and non tender X 4 quads. Reports lower mb8 abdominal pain, nausea. 08:45 Reassessment: Patient and/or family updated on plan of care and expected duration. Pain mb8 level reassessed. Patient is alert, oriented x 3, equal unlabored respirations, skin warm/dry/pink. 08:46 Reassessment: Patient states feeling better. mb8 Vital Signs: 08:12 BP 177 / 85; Pulse 86; Resp 18; Temp 97.4; Pulse Ox 96% on R/A; Pain 8/10; mb8 08:45 BP 116 / 65; Pulse 80; Resp 16; Pulse Ox 97% ; Pain 6/10; mb8 09:30 BP 146 / 79; Pulse 95; Resp 16; Temp 98; Pulse Ox 99% ; Pain 0/10; mb8 ED Course: 07:56 Patient arrived in ED. rg4 07:58 Fawn Torres FNP-C is PHCP. snw 07:58 Wilfrid Singh DO is Attending Physician. snw 08:11 Abundio Worley, RN is Primary Nurse. mb8 08:13 Triage completed. mb8 08:13 Arm band placed on. mb8 08:13 Patient has correct armband on for positive identification. Placed in gown. Bed in low mb8 position. Call light in reach. Side rails up X2. Client placed on continuous cardiac and pulse oximetry monitoring. NIBP monitoring applied. 08:13 No provider procedures requiring assistance completed. Inserted saline lock: 20 gauge mb8 in left wrist, using aseptic technique. Blood collected. 09:41 IV discontinued, intact, bleeding controlled, No redness/swelling at site. Pressure mb8 dressing applied. Administered Medications: 08:20 Drug: ProTONIX (pantoprazole) 40 mg Route: IVP; Site: left wrist; mb8 09:41 Follow up: Response: No adverse reaction; Pain is decreased mb8 08:23 Drug: Banana Bag - (NS 0.9% 1000 ml, foLIC Acid 1 mg, Thiamine 100 mg, Multivitamin 1 mb8 amp) Route: IV; Rate: 250 ml/hr; Site: left wrist; 09:35 Follow up: Response: No adverse reaction; IV Status: Completed infusion mb8 Medication: 08:13 VIS not applicable for this client. mb8 Outcome: 09:30 Discharge ordered by . snw 09:41 Discharged to home ambulatory. mb8 09:41 Condition: stable 09:41 Discharge instructions given to patient, Instructed on discharge instructions, follow up and referral plans. medication usage, Demonstrated understanding of instructions, follow-up care, medications, Prescriptions given X 2. 09:43 Patient left the ED. mb8 Signatures: Fawn Torres FNP-C HIDE SHAKER-Csnw Alejandra Ramirez rg4 Abundio Worley, RN RN mb8
[2022-01-12 10:11] VITALS: BP 146/79; TEMP 98; O2SAT 99
== END 2022-01-12 09:43 | disposition home or self-care (01) ==
LOC: ER 07:52
DX: R10.84 Generalized abdominal pain (principal); R11.0 Nausea; I10 Essential (primary) hypertension; F10.20 Alcohol dependence, uncomplicated
CPT/HCPCS: 96365; 85025; 36415; 80320; 80053; 96375; 99284; J3411; C9113; J7030

== ENCOUNTER 2022-01-12 14:27 | Emergency (ER) | payer OTHER ==
--- OUTSIDE RECORDS SUMMARY | 2022-01-12 14:37 | XMS REPORT | Continuity of Care Document ---
:1960 Author Organization [facility] t Address [address] [place] [address] Care Team Providers Name Role Phone Jacinda George Primary Care Physician [phone] MATT SIMPSON Attending Clinician Unavailable MATT SIMPSON Attending Clinician Unavailable Doctor Unassigned, [facility] Attending Clinician Unavailable WALLY KRISHNAMURTHY Attending Clinician Unavailable Natacha Brewster Attending Clinician Payers Payer Name Policy Type Policy Number Effective Date Expiration Date Sarina castelan [facility] STAR [id number] 2017 00:00:00 PLUS Problems This patient has [...] s TRANSDER 5-21 ity of MAL 00:00: [place] [facility] ACETAMIN DRUG Active Other-Cmnt Univ ers OPHEN INGREDI 07-27 ity of 00:00: [place] [address] Medical Branch Hmg-Coa Propensi Inactiv Reductas ty to e 05-06 e adverse 00:00: Inhibito reaction 00 rs to drug Nitrogly Propensi Active 2017-03 cerin ty to 1-08 adverse 00:00: reaction 00 to drug Medications Ordered Filled Start Stop Current Ordering Indication Dosage Frequency Signature Comments Components Source Medication Medication Date Date Medication? Clinician (SIG) Name Name ZOLPIDEM 2021-03 No TARTRATE 10 1-04 MG TABS 00:00: 00 ONDANSETRON 2021- No 4 4MG Tablets 03-12 00:00: 00 TAKE 1 2021- No TABLET BY 1-04 MOUTH DAILY 00:00: AT BEDTIME 00 TEMAZEPAM 2021-1 No 30 MG CAPS 03-12 00:00: 00 TAKE 2021-1 No TABLET BY 1-04 MOUTH EVERY 00:00: SIX HOURS 00 NEEDED VENLAFAXINE 2021-1 No HCL ER 150 1-04 MG CP24 00:00: 00 CLONIDINE 2021-1 No 3 HYDROCHLORI -04 DE 0.3 MG 00:00: TABS 00 CLONAZEPAM 2021-0 No 1 MG TABS 11-19 00:00: 00 CLONAZEPAM 2-0 No 1 MG TABS 11-19 00:00: 00 TAKE 1 2021-0 No TABLET BY 9-02 MOUTH EVERY 00:00: 12 HOURS 00 FOR 10 DAYS CLONAZEPAM 2-0 No 2 MG TABS 11-08 00:00: 00 DICLOFENAC 2022-[address] 11-08 Tablets 00:00: 00 TAKE 2 2-0 No 750 TABLETS BY 9- MOUTH THREE 00:00: TIMES DAILY 00 NEEDED TAKE 1 2-0 No TABLET BY 9-02 MOUTH EVERY 00:00: 12 HOURS 00 FOR 10 DAYS CLONAZEPAM 2022-0 No 2 MG TABS 11-08 00:00: 00 DICLOFENAC 2-[address] - Tablets 00:00: 00 TAKE 2 2-0 No 750 TABLETS BY 9-02 MOUTH THREE 00:00: TIMES DAILY 00 NEEDED losartan 2021-0 No 1mg 100 7-12 mg-hydrochl [...] 2021-1 No Unknown 2-08 00:00: 00 Dose 2021-1 No Unknown 2-08 00:00: 00 Dose 2021-1 No Unknown 2-08 00:00: 00 losartan 1-1 No 1mg 100 0-19 mg-hydrochl 00:00: orothiazide 00 25 mg tablet Dose 1-1 No Unknown 0-19 00:00: 00 levothyroxi 2021-1 No 1mcg ne 137 mcg 0-19 tablet 00:00: 00 losartan 2021-1 No 1mg 100 0-19 mg-hydrochl 00:00: orothiazide 00 25 mg tablet Dose 2021-1 No Unknown 0-19 00:00: 00 levothyroxi 2021-1 No 1mcg ne 137 mcg 0-19 tablet 00:00: 00 losartan 2021-1 No 1mg 100 0-19 mg-hydrochl 00:00: orothiazide [...] 00:00: 00 fluticasone 1-0 No 2mcg/ac propionate 8- tuation 50 00:00: [...] 5 mcg 3-16 tablet 00:00: 00 losartan 1-0 No 1mg 100 3-16 mg-hydrochl 00:00: orothiazide 00 25 mg tablet levothyroxi 1-0 No 1mcg ne 125 mcg 3-16 tablet 00:00: 00 liothyronin 1-0 No 1mcg e 5 mcg 3-16 tablet 00:00: 00 losartan 1-0 No 1mg [...] 5 mcg 2-04 tablet 00:00: 00 ondansetron 2020-1 No 1mg 4 mg 2-04 [...] Flagyl 500 2019-1 No 1mg mg tablet 03-21 00:00: 00 Flagyl 500 2018-1 No 1mg mg tablet 03-21 00:00: 00 Flagyl 500 2018-1 No 1mg mg tablet 03-21 00:00: 00 Premarin 2019-1 No 1mg 0.625 mg 1-11 tablet 00:00: 00 Premarin 2019-1 No 1mg 0.625 mg 1-11 tablet 00:00: 00 Premarin 2019-1 No 1mg 0.625 mg 1-11 tablet 00:00: 00 levothyroxi 2019-0 No 1mcg [...] amlodipine 2018-0 No 1mg 5 mg tablet 7 00:00: 00 ondansetron 2018-0 No 1mg HCl [...] 125 mcg 2-21 tablet 00:00: 00 levothyroxi 2016-1 No 1mcg ne 125 mcg 2-21 tablet 00:00: 00 levothyroxi 2016-1 No 1mcg ne 125 mcg 2-21 tablet 00:00: 00 hydrochloro 2017-1 No 1mg thiazide 25 2-20 mg tablet 00:00: 00 levothyroxi 2017-1 No 1mcg ne 150 mcg 2-20 tablet 00:00: 00 hydrochloro 2017-1 No 1mg thiazide 25 2-20 mg tablet 00:00: 00 levothyroxi 2016-1 No 1mcg ne 150 mcg 2-20 tablet 00:00: 00 hydrochloro 2017-1 No 1mg thiazide 25 2-20 mg tablet 00:00: 00 levothyroxi 2016-1 No 1mcg ne 150 mcg 2-20 tablet [...] baclofen 10 2016-0 No 1mg mg tablet 5-30 00:00: 00 levothyroxi 2016-0 No 1mcg ne 150 mcg 5-30 tablet 00:00: 00 hydroxyzine 0 No 1mg pamoate 50 5-30 mg capsule 00:00: 00 Vital Signs Vital Name Observation Time Observation [...] Goal Plan of Care Note [code = 18718-4] Goal Plan of Care Note [code = 22305-8] Goal Plan of Care Note [code = 72898-7] Goal Plan of Care Note [code = 09284-3] Goal Plan of Care Note [code = 05809-8] Goal Plan of Care Note [code = 96354-0] Goal Plan of Care Note [code = 27335-4] Goal Plan of Care Note [code = 37713-4] Goal Plan of Care Note [code = 17415-5] Goal Plan of Care Note [code = 87022-4] Goal Plan of Care Note [code = 61462-0] Goal Plan of Care Note [code = 89997-6] Goal Plan of Care Note [code = 38205-0] Goal Plan of Care Note [code = 51289-3] Goal Plan of Care Note [code = 22496-3] Goal Plan of Care Note [code = 72935-5] Goal Plan of Care Note [code = 69493-1] Goal Plan of Care Note [code = 37864-9] Goal Plan of Care Note [code = 28192-6] Goal Plan of Care Note [code = 09607-3] Goal Plan of Care Note [code = 10529-2] Goal Plan of Care Note [code = 27575-0] Goal Plan of Care Note [code = 62585-8] Goal Plan of Care Note [code = 08460-0] Goal Plan of Care Note [code = 83037-5] Goal Plan of Care Note [code = 04987-7] Goal Plan of Care Note [code = 04228-7] Goal Plan of Care Note [code = 67769-9] Goal Plan of Care Note [code = 72252-2] Goal Plan of Care Note [code = 34802-6] Goal Plan of Care Note [code = 19346-2] Goal Plan of Care Note [code = 81831-3] Goal Plan of Care Note [code = 84876-4] Goal Plan of Care Note [code = 35618-6] Goal Plan of Care Note [code = 30605-6] Goal Plan of Care Note [code = 86356-1] Goal Plan of Care Note [code = 88920-2] Goal Plan of Care Note [code = 65879-9] Goal Plan of Care Note [code = 59319-4] Goal Plan of Care Note [code = 81005-2] Goal Plan of Care Note [code = 19944-0] Goal Plan of Care Note [code = 76399-2] Goal Plan of Care Note [code = 54705-5] Goal Plan of Care Note [code = 74746-8] Goal Plan of Care Note [code = 06122-4] Goal Plan of Care Note [code = 85910-3] Goal Plan of Care Note [code = 37222-8] Goal Plan of Care Note [code = 58759-7] Goal Plan of Care Note [code = 66360-6] Goal Plan of Care Note [code = 58614-4] Goal Plan of Care Note [code = 91698-8] Goal Plan of Care Note [code = 16747-6] Goal Plan of Care Note [code = 22623-3] Goal Plan of Care Note [code = 27768-2] Goal Plan of Care Note [code = 05482-5] Goal Plan of Care Note [code = 51768-4] Goal Plan of Care Note [code = 05150-8] Goal Plan of Care Note [code = 64270-5] Goal Plan of Care Note [code = 41008-7] Goal Plan of Care Note [code = 24401-9] Goal Plan of Care Note [code = 28656-5] Goal Plan of Care Note [code = 41764-5] Goal Plan of Care Note [code = 79250-3] Goal Plan of Care Note [code = 59394-0] Goal Plan of Care Note [code = 60269-2] Goal Plan of Care Note [code = 27186-7] Goal Plan of Care Note [code = 05972-5] Goal Plan of Care Note [code = 24713-3] Goal Plan of Care Note [code = 51850-8] Goal Plan of Care Note [code = 27956-7] Goal Plan of Care Note [code = 03378-3] Goal Plan of Care Note [code = 89422-7] Goal Plan of Care Note [code = 03671-7] Goal Plan of Care Note [code = 63224-9] Goal Plan of Care Note [code = 33738-3] Goal Plan of Care Note [code = 99381-0] Goal Plan of Care Note [code = 27725-1] Goal Plan of Care Note [code = 93631-5] Goal Plan of Care Note [code = 46150-9] Goal Plan of Care Note [code = 99598-6] Goal Plan of Care Note [code = 16746-8] Goal Plan of Care Note [code = 19796-5] Goal Plan of Care Note [code = 20334-1] Goal Plan of Care Note [code = 13328-5] Goal Plan of Care Note [code = 45818-7] Goal Plan of Care Note [code = 36804-8] Goal Plan of Care Note [code = 14291-8] Goal Plan of Care Note [code = 63440-8] Goal Plan of Care Note [code = 84299-7] Goal Plan of Care Note [code = 75159-2] Goal Plan of Care Note [code = 31208-7] Goal Plan of Care Note [code = 21152-7] Goal Plan of Care Note [code = 08884-7] Goal Plan of Care Note [code = 69700-2] Goal Plan of Care Note [code = 72193-2] Goal Plan of Care Note [code = 12426-3] Goal Plan of Care Note [code = 77616-7] Goal Plan of Care Note [code = 28633-9] Goal Plan of Care Note [code = 08045-3] Goal Plan of Care Note [code = 19571-5] Goal Plan of Care Note [code = 03862-9] Goal Plan of Care Note [code = 68069-7] Goal Plan of Care Note [code = 16417-6] Goal Plan of Care Note [code = 36226-9] Goal Plan of Care Note [code = 15584-5] Goal Plan of Care Note [code = 71942-3] Goal Plan of Care Note [code = 26564-9] Goal Plan of Care Note [code = 67927-8] Goal Plan of Care Note [code = 91239-0] Goal Plan of Care Note [code = 82627-9] Goal Plan of Care Note [code = 87352-7] Goal Plan of Care Note [code = 12910-5] Goal Plan of Care Note [code = 62610-2] Goal Plan of Care Note [code = 02595-1] Goal Plan of Care Note [code = 28243-1] Goal Plan of Care Note [code = 53647-0] Goal Plan of Care Note [code = 75543-3] Goal Plan of Care Note [code = 99361-5] Goal Plan of Care Note [code = 33728-8] Goal Plan of Care Note [code = 52197-5] Goal Plan of Care Note [code = 26264-4] Goal Plan of Care Note [code = 59014-0] Goal Plan of Care Note [code = 28510-9] Goal Plan of Care Note [code = 24893-5] Goal Plan of Care Note [code = 01580-8] Goal Plan of Care Note [code = 51297-1] Goal Plan of Care Note [code = 48902-4] Goal Plan of Care Note [code = 12337-8] Goal Plan of Care Note [code = 24772-9] Goal Plan of Care Note [code = 00083-0] Goal Plan of Care Note [code = 06156-7] Goal Plan of Care Note [code = 33493-7] Goal Plan of Care Note [code = 10905-4] Goal Plan of Care Note [code = 68305-2] Goal Plan of Care Note [code = 35356-9] Goal Plan of Care Note [code = 21733-1] Goal Plan of Care Note [code = 95633-4] Goal Plan of Care Note [code = 69599-3] Goal Plan of Care Note [code = 74518-9] Goal Plan of Care Note [code = 44403-1] Goal Plan of Care Note [code = 09583-8] Goal Plan of Care Note [code = 62122-0] Goal Plan of Care Note [code = 11070-5] Goal Plan of Care Note [code = 08309-7] Goal Plan of Care Note [code = 86353-5] Goal Plan of Care Note [code = 09854-0] Goal Plan of Care Note [code = 28777-1] Goal Plan of Care Note [code = 71162-4] Goal Plan of Care Note [code = 70201-5] Goal Plan of Care Note [code = 70595-0] Goal Plan of Care Note [code = 65121-7] Goal Plan of Care Note [code = 29766-4] Goal Plan of Care Note [code = 39620-0] Goal Plan of Care Note [code = 79894-7] Goal Plan of Care Note [code = 54539-5] Encounters Start End Encounter Admission Attending Care Care Encounter Source Date/Time Date/Time Type Type Clinicians Facility Department ID 2021-06-01 Outpatient [facility] [id number] [place] 01:36:29 [id number] [facility] 2022-01-10 2022-01-10 Outpatient [facility] [id number] Cristian 09:16:14 09:16:14 1104 F Jerman 2022-01-10 2022-01-10 Outpatient e8xjixi6- [id number] accaa6-a 00:00:00 00:00:00 Visit aca9-4c83 ca9-4c83-a -x9ls-hn0 7eb-bc13f3 0v1z693h5 f032f9 2021-12-19 2021-12-19 Outpatient [facility] [id number] 022 Cristian 16:11:31 16:11:31 1013 F Jerman 2021-12-19 2021-12-19 Outpatient [id number]- [id number] 466cae-a 00:00:00 00:00:00 Visit q628-642n 770-441f-a -adae-62b amelia-62bace dhnim60et fd81af 2021-09-17 2021-09-17 Outpatient zdg7mwju- [id number] c5pvix-2 00:00:00 00:00:00 Visit 935a-4f50 35a-4f50-b -o43a-r1e 77d-c2ba85 [id number] 1264a6 2020-08-03 2020-08-03 Outpatient MATT VÁSQUEZ [facility] [id number] Univers 10:00:00 10:00:00 MATT SIMPSON [facility] 2020-07-25 2020-07-25 Orders Doctor ABE [id number] 00:00:00 00:00:00 Only UnassignedBK 350.1.13.10 [facility] 4.2.7.2.686 [id number] 2019-09-26 2019-09-26 Outpatient Bertin KRISHNAMURTHY [facility] [id number] Univers 16:00:00 16:00:00 WALLY [facility] 2018-10-21 2018-10-21 [facility], [facility] [id number] 00:00:00 00:00:00 Natacha Nguyen 350.1.13.10 [place] 4.2.7.2.686 [facility] [id number] [facility] [address] Building Results Test Description Test Time Test Comments Results Result Comments Source TSH, THIRD GENERATION 2021-06-27 05:15:49 Test Item Value Reference Range Interpretation Comme nts TSH, THIRD GENERATION (test code = 2821) 2.080 UIU/ML 0.400-4.100 HEMOGLOBIN [id number] 03:46:00 Test Item Value Reference Range Interpretation Comments HEMOGLOBIN A1c (test 6.6 % 4.2-5.6 H AMERIC AN DIABETES code = 46879) ASSOCIATION IDELINES FOR HGB A1C: PREDIABETES/INC REASED [...] INDICATED, ALL TESTING PER FORMED ATCLINICAL PATH [facility] [place] [address] LABORATORY DIRE CTOR: DIANA RUSS M.D. CLIA NUMBER [id number] [facility] [place]. [id number] LIPID [id number] 02:59:52 Test Item Value Reference Range Interpretation [...] , SEE CLIENT ANNOUNCE MENT AT [email or web address] RISK RATIO LDL/HDL 4.02 RATIO <3.22 H (test code = 2238) [id number] 00:00:00 Test Item Value Reference Range Interpretation Comments TSH, THIRD GENERATION (test code 2.080 UIU/ML = 2821) [id number] 00:00:00 Test Item Value Reference Range Interpretation Comments TSH, THIRD GENERATION (test code 2.080 UIU/ML = 2821) [id number] 00:00:00 Test Item Value Reference Range Interpretation Comments TSH, THIRD GENERATION (test code 2.080 UIU/ML = 2821) LIPID [id number] 00:00:00 Test Item Value Reference Range Interpretation Comments CHOLESTEROL (test code = 2210) 292 MG/DL TRIGLYCERIDES (test code = 2232) 184 MG/DL HDL CHOLESTEROL (test code = 2220) 51 MG/DL CALC LDL CHOL (test code = 2237) 205 MG/DL RISK RATIO LDL/HDL (test code = 4.02 RATIO 2238) LIPID [id number] 00:00:00 Test Item Value Reference Range Interpretation Comments CHOLESTEROL (test code = 2210) 292 MG/DL TRIGLYCERIDES (test code = 2232) 184 MG/DL HDL CHOLESTEROL (test code = 2220) 51 MG/DL CALC LDL CHOL (test code = 2237) 205 MG/DL RISK RATIO LDL/HDL (test code = 4.02 RATIO 2238) HEMOGLOBIN [id number] 00:00:00 Test Item Value Reference Range Interpretation Comments HEMOGLOBIN A1c (test code = 18988) 6.6 % HEMOGLOBIN [id number] 00:00:00 Test Item Value Reference Range Interpretation Comments HEMOGLOBIN A1c (test code = 48003) 6.6 % HEMOGLOBIN [id number] 00:00:00 Test Item Value Reference Range Interpretation Comments HEMOGLOBIN A1c (test code = 43542) 6.6 % [id number] 00:00:00 Test Item Value Reference Range Interpretation Comments TSH, THIRD GENERATION (test code 2.080 UIU/ML = 2821) [id number] 00:00:00 Test Item Value Reference Range Interpretation Comments TSH, THIRD GENERATION (test code 2.080 UIU/ML = 2821) LIPID [id number] 00:00:00 Test Item Value Reference Range Interpretation Comments CHOLESTEROL (test code = 2210) 292 MG/DL TRIGLYCERIDES (test code = 2232) 184 MG/DL HDL CHOLESTEROL (test code = 2220) 51 MG/DL CALC LDL CHOL (test code = 2237) 205 MG/DL RISK RATIO LDL/HDL (test code = 4.02 RATIO 2238) HEMOGLOBIN [id number] 00:00:00 Test Item Value Reference Range Interpretation Comments HEMOGLOBIN A1c (test code = 57029) 6.6 % HEMOGLOBIN [id number] 00:00:00 Test Item Value Reference Range Interpretation Comments HEMOGLOBIN A1c (test code = 83073) 6.6 % [id number] 00:00:00 Test Item Value Reference Range Interpretation Comments TSH, THIRD GENERATION (test code 2.080 UIU/ML = 2821) [id number] 00:00:00 Test Item Value Reference Range Interpretation Comments TSH, THIRD GENERATION (test code 2.080 UIU/ML = 2821) [id number] 00:00:00 Test Item Value Reference Range Interpretation Comments TSH, THIRD GENERATION (test code 2.080 UIU/ML = 2821) LIPID [id number] 00:00:00 Test Item Value Reference Range Interpretation Comments CHOLESTEROL (test code = 2210) 292 MG/DL TRIGLYCERIDES (test code = 2232) 184 MG/DL HDL CHOLESTEROL (test code = 2220) 51 MG/DL CALC LDL CHOL (test code = 2237) 205 MG/DL RISK RATIO LDL/HDL (test code = 4.02 RATIO 2238) LIPID [id number] 00:00:00 Test Item Value Reference Range Interpretation Comments CHOLESTEROL (test code = 2210) 292 MG/DL TRIGLYCERIDES (test code = 2232) 184 MG/DL HDL CHOLESTEROL (test code = 2220) 51 MG/DL CALC LDL CHOL (test code = 2237) 205 MG/DL RISK RATIO LDL/HDL (test code = 4.02 RATIO 2238) HEMOGLOBIN [id number] 00:00:00 Test Item Value Reference Range Interpretation Comments HEMOGLOBIN A1c (test code = 27628) 6.6 % HEMOGLOBIN [id number] 00:00:00 Test Item Value Reference Range Interpretation Comments HEMOGLOBIN A1c (test code = 76712) 6.6 % HEMOGLOBIN [id number] 00:00:00 Test Item Value Reference Range Interpretation Comments HEMOGLOBIN A1c (test code = 81686) 6.6 % HEMOGLOBIN [id number] 00:00:00 Test Item Value Reference Range Interpretation Comments HEMOGLOBIN A1c (test code = 00875) 6.8 % HEMOGLOBIN [id number] 00:00:00 Test Item Value Reference Range Interpretation Comments HEMOGLOBIN A1c (test code = 14587) 6.8 % HEMOGLOBIN [id number] 00:00:00 Test Item Value Reference Range Interpretation Comments HEMOGLOBIN A1c (test code = 69800) 6.8 % LIPID [id number] 00:00:00 Test Item Value Reference Range Interpretation Comments CHOLESTEROL (test code = 2210) 303 MG/DL TRIGLYCERIDES (test code = 2232) 191 MG/DL HDL CHOLESTEROL (test code = 2220) 61 MG/DL CALC LDL CHOL (test code = 2237) 205 MG/DL RISK RATIO LDL/HDL (test code = 3.36 RATIO 2238) LIPID [id number] 00:00:00 Test Item Value Reference Range Interpretation Comments CHOLESTEROL (test code = 2210) 303 MG/DL TRIGLYCERIDES (test code = 2232) 191 MG/DL HDL CHOLESTEROL (test code = 2220) 61 MG/DL CALC LDL CHOL (test code = 2237) 205 MG/DL RISK RATIO LDL/HDL (test code = 3.36 RATIO 2238) [id number] 00:00:00 Test Item Value Reference Range Interpretation Comments TSH, THIRD GENERATION (test code 0.769 UIU/ML = 2821) [id number] 00:00:00 Test Item Value Reference Range Interpretation Comments TSH, THIRD GENERATION (test code 0.769 UIU/ML = 2821) [id number] 00:00:00 Test Item Value Reference Range Interpretation Comments TSH, THIRD GENERATION (test code 0.769 UIU/ML = 2821) COMPREHENSIVE METABOLIC [id number] 00:00:00 Test Item Value Reference Range Interpretation Comments GLUCOSE (test code = 2217) 131 MG/DL BUN (test code = 2208) 13 MG/DL CREATININE (test code = 2214) 0.65 MG/DL eGFR AMER. (test code 113 ML/MIN/1.73 = 23313) eGFR NON- AMER. (test 97 ML/MIN/1.73 code = 79853) CALC BUN/CREAT (test code = 20 RATIO [...] code = 2219) 23 U/L COMPREHENSIVE METABOLIC [id number] 00:00:00 Test Item Value Reference Range Interpretation Comments GLUCOSE (test code = 2217) 131 MG/DL BUN (test code = 2208) 13 MG/DL CREATININE (test code = 2214) 0.65 MG/DL eGFR AMER. (test code 113 ML/MIN/1.73 = 06796) eGFR NON- AMER. (test 97 ML/MIN/1.73 code = 33633) CALC BUN/CREAT (test code = 20 RATIO [...] (test code = 2219) 23 U/L HEMOGLOBIN [id number] 00:00:00 Test Item Value Reference Range Interpretation Comments HEMOGLOBIN A1c (test code = 70512) 6.8 % HEMOGLOBIN [id number] 00:00:00 Test Item Value Reference Range Interpretation Comments HEMOGLOBIN A1c (test code = 04163) 6.8 % LIPID [id number] 00:00:00 Test Item Value Reference Range Interpretation Comments CHOLESTEROL (test code = 2210) 303 MG/DL TRIGLYCERIDES (test code = 2232) 191 MG/DL HDL CHOLESTEROL (test code = 2220) 61 MG/DL CALC LDL CHOL (test code = 2237) 205 MG/DL RISK RATIO LDL/HDL (test code = 3.36 RATIO 2238) [id number] 00:00:00 Test Item Value Reference Range Interpretation Comments TSH, THIRD GENERATION (test code 0.769 UIU/ML = 2821) [id number] 00:00:00 Test Item Value Reference Range Interpretation Comments TSH, THIRD GENERATION (test code 0.769 UIU/ML = 2821) COMPREHENSIVE METABOLIC [id number] 00:00:00 Test Item Value Reference Range Interpretation Comments GLUCOSE (test code = 2217) 131 MG/DL BUN (test code = 2208) 13 MG/DL CREATININE (test code = 2214) 0.65 MG/DL eGFR AMER. (test code 113 ML/MIN/1.73 = 40044) eGFR NON- AMER. (test 97 ML/MIN/1.73 code = 95232) CALC BUN/CREAT (test code = 20 RATIO [...] (test code = 2219) 23 U/L HEMOGLOBIN [id number] 00:00:00 Test Item Value Reference Range Interpretation Comments HEMOGLOBIN A1c (test code = 29391) 6.8 % HEMOGLOBIN [id number] 00:00:00 Test Item Value Reference Range Interpretation Comments HEMOGLOBIN A1c (test code = 21100) 6.8 % HEMOGLOBIN [id number] 00:00:00 Test Item Value Reference Range Interpretation Comments HEMOGLOBIN A1c (test code = 33797) 6.8 % LIPID [id number] 00:00:00 Test Item Value Reference Range Interpretation Comments CHOLESTEROL (test code = 2210) 303 MG/DL TRIGLYCERIDES (test code = 2232) 191 MG/DL HDL CHOLESTEROL (test code = 2220) 61 MG/DL CALC LDL CHOL (test code = 2237) 205 MG/DL RISK RATIO LDL/HDL (test code = 3.36 RATIO 2238) LIPID [id number] 00:00:00 Test Item Value Reference Range Interpretation Comments CHOLESTEROL (test code = 2210) 303 MG/DL TRIGLYCERIDES (test code = 2232) 191 MG/DL HDL CHOLESTEROL (test code = 2220) 61 MG/DL CALC LDL CHOL (test code = 2237) 205 MG/DL RISK RATIO LDL/HDL (test code = 3.36 RATIO 2238) [id number] 00:00:00 Test Item Value Reference Range Interpretation Comments TSH, THIRD GENERATION (test code 0.769 UIU/ML = 2821) [id number] 00:00:00 Test Item Value Reference Range Interpretation Comments TSH, THIRD GENERATION (test code 0.769 UIU/ML = 2821) [id number] 00:00:00 Test Item Value Reference Range Interpretation Comments TSH, THIRD GENERATION (test code 0.769 UIU/ML = 2821) COMPREHENSIVE METABOLIC [id number] 00:00:00 Test Item Value Reference Range Interpretation Comments GLUCOSE (test code = 2217) 131 MG/DL BUN (test code = 2208) 13 MG/DL CREATININE (test code = 2214) 0.65 MG/DL eGFR AMER. (test code 113 ML/MIN/1.73 = 49824) eGFR NON- AMER. (test 97 ML/MIN/1.73 code = 21963) CALC BUN/CREAT (test code = 20 RATIO 2235) SODIUM (test code = 2231) 131 MEQ/L POTASSIUM (test code = 2228) 4.5 MEQ/L CHLORIDE (test code = 2215) 92 MEQ/L CARBON DIOXIDE (test code = 24 MEQ/L 2206) CALCIUM (test code = 2209) 9.5 MG/DL PROTEIN, TOTAL (test code = 7.5 G/DL 2229) ALBUMIN (test code = 2201) 4.9 G/DL CALC GLOBULIN (test code = 2.6 G/DL 2240) CALC A/G RATIO (test code = 1.9 RATIO 2234) BILIRUBIN, TOTAL (test code = <0.2 MG/DL 2206) ALKALINE PHOSPHATASE (test 139 U/L code = 2204) AST (test code = 2218) 17 U/L ALT (test code = 2219) 23 U/L COMPREHENSIVE METABOLIC [id number] 00:00:00 Test Item Value Reference Range Interpretation Comments GLUCOSE (test code = 2217) 131 MG/DL BUN (test code = 2208) 13 MG/DL CREATININE (test code = 2214) 0.65 MG/DL eGFR AMER. (test code 113 ML/MIN/1.73 = 35711) eGFR NON- AMER. (test 97 ML/MIN/1.73 code = 00649) CALC BUN/CREAT (test code = 20 RATIO [...] (test code = 2219) 23 U/L HEMOGLOBIN [id number] 00:00:00 Test Item Value Reference Range Interpretation Comments HEMOGLOBIN A1c (test code = 00372) 6.6 % HEMOGLOBIN [id number] 00:00:00 Test Item Value Reference Range Interpretation Comments HEMOGLOBIN A1c (test code = 23927) 6.6 % HEMOGLOBIN [id number] 00:00:00 Test Item Value Reference Range Interpretation Comments HEMOGLOBIN A1c (test code = 45351) 6.6 % LIPID [id number] 00:00:00 Test Item Value Reference Range Interpretation Comments CHOLESTEROL (test code = 2210) 261 MG/DL TRIGLYCERIDES (test code = 2232) 159 MG/DL HDL CHOLESTEROL (test code = 2220) 82 MG/DL CALC LDL CHOL (test code = 2237) 150 MG/DL RISK RATIO LDL/HDL (test code = 1.83 RATIO 2238) LIPID [id number] 00:00:00 Test Item Value Reference Range Interpretation Comments CHOLESTEROL (test code = 2210) 261 MG/DL TRIGLYCERIDES (test code = 2232) 159 MG/DL HDL CHOLESTEROL (test code = 2220) 82 MG/DL CALC LDL CHOL (test code = 2237) 150 MG/DL RISK RATIO LDL/HDL (test code = 1.83 RATIO 2238) COMPREHENSIVE METABOLIC [id number] 00:00:00 Test Item Value Reference Range Interpretation Comments GLUCOSE (test code = 2217) 144 MG/DL BUN (test code = 2208) 15 MG/DL CREATININE (test code = 2214) 0.85 MG/DL eGFR AMER. (test code 87 ML/MIN/1.73 = 59306) eGFR NON- AMER. (test 75 ML/MIN/1.73 code = 93900) CALC BUN/CREAT (test code = 18 RATIO [...] code = 2219) 50 U/L COMPREHENSIVE METABOLIC [id number] 00:00:00 Test Item Value Reference Range Interpretation Comments GLUCOSE (test code = 2217) 144 MG/DL BUN (test code = 2208) 15 MG/DL CREATININE (test code = 2214) 0.85 MG/DL eGFR AMER. (test code 87 ML/MIN/1.73 = 70147) eGFR NON- AMER. (test 75 ML/MIN/1.73 code = 66654) CALC BUN/CREAT (test code = 18 RATIO [...] THYROX. BIND. CAPAC. (test code 1.1 = 91179) T4 (THYROXINE) (test code = 4.3 UG/DL 2819) CORRECTED T4 (FTI) (test code = 3.9 UG/DL 2820) TSH, THIRD GENERATION (test 18.900 UIU/ML code = 2821) THYROID II PROFILE (T3U, T4, T7, TSH)2020-05-23 00:00:00 Test Item Value Reference Range Interpretation Comments T-UPTAKE (test code = 2817) 30.2 % THYROX. BIND. CAPAC. (test code 1.1 = 99375) T4 (THYROXINE) (test code = 4.3 UG/DL 281) CORRECTED T4 (FTI) (test code = 3.9 UG/DL 2820) TSH, THIRD GENERATION (test 18.900 UIU/ML code = 2821) HEMOGLOBIN [id number] 00:00:00 Test Item Value Reference Range Interpretation Comments HEMOGLOBIN A1c (test code = 11275) 6.6 % HEMOGLOBIN [id number] 00:00:00 Test Item Value Reference Range Interpretation Comments HEMOGLOBIN A1c (test code = 35722) 6.6 % LIPID [id number] 00:00:00 Test Item Value Reference Range Interpretation Comments CHOLESTEROL (test code = 2210) 261 MG/DL TRIGLYCERIDES (test code = 2232) 159 MG/DL HDL CHOLESTEROL (test code = 2220) 82 MG/DL CALC LDL CHOL (test code = 2237) 150 MG/DL RISK RATIO LDL/HDL (test code = 1.83 RATIO 2238) COMPREHENSIVE METABOLIC [id number] 00:00:00 Test Item Value Reference Range Interpretation Comments GLUCOSE (test code = 2217) 144 MG/DL BUN (test code = 2208) 15 MG/DL CREATININE (test code = 2214) 0.85 MG/DL eGFR AMER. (test code 87 ML/MIN/1.73 = 14104) eGFR NON- AMER. (test 75 ML/MIN/1.73 code = 67233) CALC BUN/CREAT (test code = 18 RATIO [...] = <0.2 MG/DL 2207) ALKALINE PHOSPHATASE (test 117 U/L code = 2204) AST (test code = 2218) 27 U/L ALT (test code = 2219) 50 U/L THYROID II PROFILE (T3U, T4, T7, TSH)2020-05-23 00:00:00 Test Item Value Reference Range Interpretation Comments T-UPTAKE (test code = 2817) 30.2 % THYROX. BIND. CAPAC. (test code 1.1 = 11990) T4 (THYROXINE) (test code = 4.3 UG/DL 2819) CORRECTED T4 (FTI) (test code = 3.9 UG/DL 2820) TSH, THIRD GENERATION (test 18.900 UIU/ML code = 2821) HEMOGLOBIN [id number] 00:00:00 Test Item Value Reference Range Interpretation Comments HEMOGLOBIN A1c (test code = 84683) 6.6 % HEMOGLOBIN [id number] 00:00:00 Test Item Value Reference Range Interpretation Comments HEMOGLOBIN A1c (test code = 42573) 6.6 % HEMOGLOBIN [id number] 00:00:00 Test Item Value Reference Range Interpretation Comments HEMOGLOBIN A1c (test code = 53283) 6.6 % LIPID [id number] 00:00:00 Test Item Value Reference Range Interpretation Comments CHOLESTEROL (test code = 2210) 261 MG/DL TRIGLYCERIDES (test code = 2232) 159 MG/DL HDL CHOLESTEROL (test code = 2220) 82 MG/DL CALC LDL CHOL (test code = 2237) 150 MG/DL RISK RATIO LDL/HDL (test code = 1.83 RATIO 2238) LIPID [id number] 00:00:00 Test Item Value Reference Range Interpretation Comments CHOLESTEROL (test code = 2210) 261 MG/DL TRIGLYCERIDES (test code = 2232) 159 MG/DL HDL CHOLESTEROL (test code = 2220) 82 MG/DL CALC LDL CHOL (test code = 2237) 150 MG/DL RISK RATIO LDL/HDL (test code = 1.83 RATIO 2238) COMPREHENSIVE METABOLIC [id number] 00:00:00 Test Item Value Reference Range Interpretation Comments GLUCOSE (test code = 2217) 144 MG/DL BUN (test code = 2208) 15 MG/DL CREATININE (test code = 2214) 0.85 MG/DL eGFR AMER. (test code 87 ML/MIN/1.73 = 37362) eGFR NON- AMER. (test 75 ML/MIN/1.73 code = 16128) CALC BUN/CREAT (test code = 18 RATIO [...] code = 2219) 50 U/L COMPREHENSIVE METABOLIC [id number] 00:00:00 Test Item Value Reference Range Interpretation Comments GLUCOSE (test code = 2217) 144 MG/DL BUN (test code = 2208) 15 MG/DL CREATININE (test code = 2214) 0.85 MG/DL eGFR AMER. (test code 87 ML/MIN/1.73 = 96560) eGFR NON- AMER. (test 75 ML/MIN/1.73 code = 86047) CALC BUN/CREAT (test code = 18 RATIO 2235) SODIUM (test code = 2231) 133 MEQ/L POTASSIUM (test code = 2228) 4.5 MEQ/L CHLORIDE (test code = 2215) 93 MEQ/L CARBON DIOXIDE (test code = 28 MEQ/L 2206) CALCIUM (test code = 2209) 9.7 MG/DL PROTEIN, TOTAL (test code = 7.5 G/DL 9) ALBUMIN (test code = 2201) 5.0 G/DL [...] THYROX. BIND. CAPAC. (test code 1.1 = 84631) T4 (THYROXINE) (test code = 4.3 UG/DL 2819) CORRECTED T4 (FTI) (test code = 3.9 UG/DL 2820) TSH, THIRD GENERATION (test 18.900 UIU/ML code = 2821) THYROID II PROFILE (T3U, T4, T7, TSH)2020-05-23 00:00:00 Test Item Value Reference Range Interpretation Comments T-UPTAKE (test code = 2817) 30.2 % THYROX. BIND. CAPAC. (test code 1.1 = 99078) T4 (THYROXINE) (test code = 4.3 UG/DL 2819) CORRECTED T4 (FTI) (test code = 3.9 UG/DL 2820) TSH, THIRD GENERATION (test 18.900 UIU/ML code = 2821) HEMOGLOBIN [id number] 00:00:00 Test Item Value Reference Range Interpretation Comments HEMOGLOBIN A1c (test code = 29414) 6.7 % HEMOGLOBIN [id number] 00:00:00 Test Item Value Reference Range Interpretation Comments HEMOGLOBIN A1c (test code = 73108) 6.7 % HEMOGLOBIN [id number] 00:00:00 Test Item Value Reference Range Interpretation Comments HEMOGLOBIN A1c (test code = 78974) 6.7 % LIPID [id number] 00:00:00 Test Item Value Reference Range Interpretation Comments CHOLESTEROL (test code = 2210) 267 MG/DL TRIGLYCERIDES (test code = 2232) 137 MG/DL HDL CHOLESTEROL (test code = 2220) 48 MG/DL CALC LDL CHOL (test code = 2237) 192 MG/DL RISK RATIO LDL/HDL (test code = 4.00 RATIO 2238) LIPID [id number] 00:00:00 Test Item Value Reference Range Interpretation Comments CHOLESTEROL (test code = 2210) 267 MG/DL TRIGLYCERIDES (test code = 2232) 137 MG/DL HDL CHOLESTEROL (test code = 2220) 48 MG/DL CALC LDL CHOL (test code = 2237) 192 MG/DL RISK RATIO LDL/HDL (test code = 4.00 RATIO 2238) COMPREHENSIVE METABOLIC [id number] 00:00:00 Test Item Value Reference Range Interpretation Comments GLUCOSE (test code = 2217) 155 MG/DL BUN (test code = 2208) 14 MG/DL CREATININE (test code = 2214) 0.52 MG/DL eGFR AMER. (test code 122 ML/MIN/1.73 = 38430) eGFR NON- AMER. (test 105 ML/MIN/1.73 code = 16696) CALC BUN/CREAT (test code = 27 RATIO 2235) SODIUM (test code = 2231) 142 MEQ/L POTASSIUM (test code = 2228) 4.4 MEQ/L CHLORIDE (test code = 2215) 104 MEQ/L CARBON DIOXIDE (test code = 25 MEQ/L 220) CALCIUM (test code = 2209) 9.2 MG/DL [...] code = 2219) 27 U/L COMPREHENSIVE METABOLIC [id number] 00:00:00 Test Item Value Reference Range Interpretation Comments GLUCOSE (test code = 2217) 155 MG/DL BUN (test code = 2208) 14 MG/DL CREATININE (test code = 2214) 0.52 MG/DL eGFR AMER. (test code 122 ML/MIN/1.73 = 43297) eGFR NON- AMER. (test 105 ML/MIN/1.73 code = 79429) CALC BUN/CREAT (test code = 27 RATIO [...] THYROX. BIND. CAPAC. (test code 1.0 = 80314) T4 (THYROXINE) (test code = 4.7 UG/DL 2819) CORRECTED T4 (FTI) (test code = 4.7 UG/DL 2820) TSH, THIRD GENERATION (test code 0.201 UIU/ML = 2821) THYROID II PROFILE (T3U, T4, T7, TSH)2019 00:00:00 Test Item Value Reference Range Interpretation Comments T-UPTAKE (test code = 2817) 33.1 % THYROX. BIND. CAPAC. (test code 1.0 = 49608) T4 (THYROXINE) (test code = 4.7 UG/DL 2819) CORRECTED T4 (FTI) (test code = 4.7 UG/DL 2820) TSH, THIRD GENERATION (test code 0.201 UIU/ML = 2821) HEMOGLOBIN [id number] 00:00:00 Test Item Value Reference Range Interpretation Comments HEMOGLOBIN A1c (test code = 55769) 6.7 % HEMOGLOBIN [id number] 00:00:00 Test Item Value Reference Range Interpretation Comments HEMOGLOBIN A1c (test code = 73196) 6.7 % LIPID [id number] 00:00:00 Test Item Value Reference Range Interpretation Comments CHOLESTEROL (test code = 2210) 267 MG/DL TRIGLYCERIDES (test code = 2232) 137 MG/DL HDL CHOLESTEROL (test code = 2220) 48 MG/DL CALC LDL CHOL (test code = 2237) 192 MG/DL RISK RATIO LDL/HDL (test code = 4.00 RATIO 2238) COMPREHENSIVE METABOLIC [id number] 00:00:00 Test Item Value Reference Range Interpretation Comments GLUCOSE (test code = 2217) 155 MG/DL BUN (test code = 2208) 14 MG/DL CREATININE (test code = 2214) 0.52 MG/DL eGFR AMER. (test code 122 ML/MIN/1.73 = 32990) eGFR NON- AMER. (test 105 ML/MIN/1.73 code = 85350) CALC BUN/CREAT (test code = 27 RATIO [...] THYROX. BIND. CAPAC. (test code 1.0 = 79401) T4 (THYROXINE) (test code = 4.7 UG/DL 2819) CORRECTED T4 (FTI) (test code = 4.7 UG/DL 2820) TSH, THIRD GENERATION (test code 0.201 UIU/ML = 2821) HEMOGLOBIN [id number] 00:00:00 Test Item Value Reference Range Interpretation Comments HEMOGLOBIN A1c (test code = 66327) 6.7 % HEMOGLOBIN [id number] 00:00:00 Test Item Value Reference Range Interpretation Comments HEMOGLOBIN A1c (test code = 50528) 6.7 % HEMOGLOBIN [id number] 00:00:00 Test Item Value Reference Range Interpretation Comments HEMOGLOBIN A1c (test code = 41072) 6.7 % LIPID [id number] 00:00:00 Test Item Value Reference Range Interpretation Comments CHOLESTEROL (test code = 2210) 267 MG/DL TRIGLYCERIDES (test code = 2232) 137 MG/DL HDL CHOLESTEROL (test code = 2220) 48 MG/DL CALC LDL CHOL (test code = 2237) 192 MG/DL RISK RATIO LDL/HDL (test code = 4.00 RATIO 2238) LIPID [id number] 00:00:00 Test Item Value Reference Range Interpretation Comments CHOLESTEROL (test code = 2210) 267 MG/DL TRIGLYCERIDES (test code = 2232) 137 MG/DL HDL CHOLESTEROL (test code = 2220) 48 MG/DL CALC LDL CHOL (test code = 2237) 192 MG/DL RISK RATIO LDL/HDL (test code = 4.00 RATIO 2238) COMPREHENSIVE METABOLIC [id number] 00:00:00 Test Item Value Reference Range Interpretation Comments GLUCOSE (test code = 2217) 155 MG/DL BUN (test code = 2208) 14 MG/DL CREATININE (test code = 2214) 0.52 MG/DL eGFR AMER. (test code 122 ML/MIN/1.73 = 19601) eGFR NON- AMER. (test 105 ML/MIN/1.73 code = 77957) CALC BUN/CREAT (test code = 27 RATIO [...] code = 2219) 27 U/L COMPREHENSIVE METABOLIC [id number] 00:00:00 Test Item Value Reference Range Interpretation Comments GLUCOSE (test code = 2217) 155 MG/DL BUN (test code = 2208) 14 MG/DL CREATININE (test code = 2214) 0.52 MG/DL eGFR AMER. (test code 122 ML/MIN/1.73 = 40531) eGFR NON- AMER. (test 105 ML/MIN/1.73 code = 16238) CALC BUN/CREAT (test code = 27 RATIO 2235) SODIUM (test code = 2231) 142 MEQ/L POTASSIUM (test code = 2228) 4.4 MEQ/L CHLORIDE (test code = 2215) 104 MEQ/L CARBON DIOXIDE (test code = 25 MEQ/L 2205) CALCIUM (test code = 220) 9.2 MG/DL PROTEIN, TOTAL (test code = [...] THYROX. BIND. CAPAC. (test code 1.0 = 97475) T4 (THYROXINE) (test code = 4.7 UG/DL 2819) CORRECTED T4 (FTI) (test code = 4.7 UG/DL 2820) TSH, THIRD GENERATION (test code 0.201 UIU/ML = 2821) THYROID II PROFILE (T3U, T4, T7, TSH)2019 00:00:00 Test Item Value Reference Range Interpretation Comments T-UPTAKE (test code = 2816) 33.1 % THYROX. BIND. CAPAC. (test code 1.0 = 31252) T4 (THYROXINE) (test code = 4.7 UG/DL 2819) CORRECTED T4 (FTI) (test code = 4.7 UG/DL 2820) TSH, THIRD GENERATION (test code 0.201 UIU/ML = 2821) SARS-CoV-2 (COVID-19) by RT-PCR (HIGH RISK)2019-09-18 00:00:00 Test Item Value Reference Range Interpretation Comments SARS-CoV-2 INTERPRETATION (test NEGATIVE code = 44358) SOURCE (test code = 03386) NOT SPECIFIED SARS-CoV-2 (COVID-19) by RT-PCR (HIGH RISK)2019-09-18 00:00:00 Test Item Value Reference Range Interpretation Comments SARS-CoV-2 INTERPRETATION (test NEGATIVE code = 42990) SOURCE (test code = 10704) NOT SPECIFIED SARS-CoV-2 (COVID-19) by RT-PCR (HIGH RISK)2019-09-18 00:00:00 Test Item Value Reference Range Interpretation Comments SARS-CoV-2 INTERPRETATION (test NEGATIVE code = 32155) SOURCE (test code = 86779) NOT SPECIFIED SARS-CoV-2 (COVID-19) by RT-PCR (HIGH RISK)2019-09-18 00:00:00 Test Item Value Reference Range Interpretation Comments SARS-CoV-2 INTERPRETATION (test NEGATIVE code = 80241) SOURCE (test code = 92629) NOT SPECIFIED SARS-CoV-2 (COVID-19) by RT-PCR (HIGH RISK)2019-09-18 00:00:00 Test Item Value Reference Range Interpretation Comments SARS-CoV-2 INTERPRETATION (test NEGATIVE code = 59155) SOURCE (test code = 92260) NOT SPECIFIED [id number] 00:00:00 Test Item Value Reference Range Interpretation Comments TSH, THIRD GENERATION (test code 2.490 UIU/ML = 2821) [id number] 00:00:00 Test Item Value Reference Range Interpretation Comments TSH, THIRD GENERATION (test code 2.490 UIU/ML = 2821) [id number] 00:00:00 Test Item Value Reference Range Interpretation Comments TSH, THIRD GENERATION (test code 2.490 UIU/ML = 2821) HEMOGLOBIN [id number] 00:00:00 Test Item Value Reference Range Interpretation Comments HEMOGLOBIN A1c (test code = 46861) 6.4 % HEMOGLOBIN [id number] 00:00:00 Test Item Value Reference Range Interpretation Comments HEMOGLOBIN A1c (test code = 57248) 6.4 % HEMOGLOBIN [id number] 00:00:00 Test Item Value Reference Range Interpretation Comments HEMOGLOBIN A1c (test code = 98059) 6.4 % COMPREHENSIVE METABOLIC [id number] 00:00:00 Test Item Value Reference Range Interpretation Comments GLUCOSE (test code = 2217) 206 MG/DL BUN (test code = 2208) 23 MG/DL CREATININE (test code = 2214) 0.67 MG/DL eGFR AMER. (test code 112 ML/MIN/1.73 = 71087) eGFR NON- AMER. (test 97 ML/MIN/1.73 code = 85149) CALC BUN/CREAT (test code = 34 RATIO [...] code = 2219) 25 U/L COMPREHENSIVE METABOLIC [id number] 00:00:00 Test Item Value Reference Range Interpretation Comments GLUCOSE (test code = 2217) 206 MG/DL BUN (test code = 2208) 23 MG/DL CREATININE (test code = 2214) 0.67 MG/DL eGFR AMER. (test code 112 ML/MIN/1.73 = 61830) eGFR NON- AMER. (test 97 ML/MIN/1.73 code = 52524) CALC BUN/CREAT (test code = 34 RATIO [...] ALT (test code = 2219) 25 U/L [id number] 00:00:00 Test Item Value Reference Range Interpretation Comments TSH, THIRD GENERATION (test code 2.490 UIU/ML = 2821) [id number] 00:00:00 Test Item Value Reference Range Interpretation Comments TSH, THIRD GENERATION (test code 2.490 UIU/ML = 2821) HEMOGLOBIN [id number] 00:00:00 Test Item Value Reference Range Interpretation Comments HEMOGLOBIN A1c (test code = 58580) 6.4 % HEMOGLOBIN [id number] 00:00:00 Test Item Value Reference Range Interpretation Comments HEMOGLOBIN A1c (test code = 00354) 6.4 % COMPREHENSIVE METABOLIC [id number] 00:00:00 Test Item Value Reference Range Interpretation Comments GLUCOSE (test code = 2217) 206 MG/DL BUN (test code = 2208) 23 MG/DL CREATININE (test code = 2214) 0.67 MG/DL eGFR AMER. (test code 112 ML/MIN/1.73 = 77722) eGFR NON- AMER. (test 97 ML/MIN/1.73 code = 06461) CALC BUN/CREAT (test code = 34 RATIO [...] ALT (test code = 2219) 25 U/L [id number] 00:00:00 Test Item Value Reference Range Interpretation Comments TSH, THIRD GENERATION (test code 2.490 UIU/ML = 2821) [id number] 00:00:00 Test Item Value Reference Range Interpretation Comments TSH, THIRD GENERATION (test code 2.490 UIU/ML = 2821) [id number] 00:00:00 Test Item Value Reference Range Interpretation Comments TSH, THIRD GENERATION (test code 2.490 UIU/ML = 2821) HEMOGLOBIN [id number] 00:00:00 Test Item Value Reference Range Interpretation Comments HEMOGLOBIN A1c (test code = 35459) 6.4 % HEMOGLOBIN [id number] 00:00:00 Test Item Value Reference Range Interpretation Comments HEMOGLOBIN A1c (test code = 96655) 6.4 % HEMOGLOBIN [id number] 00:00:00 Test Item Value Reference Range Interpretation Comments HEMOGLOBIN A1c (test code = 06232) 6.4 % COMPREHENSIVE METABOLIC [id number] 00:00:00 Test Item Value Reference Range Interpretation Comments GLUCOSE (test code = 2217) 206 MG/DL BUN (test code = 2208) 23 MG/DL CREATININE (test code = 2214) 0.67 MG/DL eGFR AMER. (test code 112 ML/MIN/1.73 = 24347) eGFR NON- AMER. (test 97 ML/MIN/1.73 code = 20333) CALC BUN/CREAT (test code = 34 RATIO [...] code = 2219) 25 U/L COMPREHENSIVE METABOLIC [id number] 00:00:00 Test Item Value Reference Range Interpretation Comments GLUCOSE (test code = 2217) 206 MG/DL BUN (test code = 2208) 23 MG/DL CREATININE (test code = 2214) 0.67 MG/DL eGFR AMER. (test code 112 ML/MIN/1.73 = 91642) eGFR NON- AMER. (test 97 ML/MIN/1.73 code = 79960) CALC BUN/CREAT (test code = 34 RATIO [...] = 2219) 25 U/L VAGINAL PATHOGENS DNA [id number] 00:00:00 Test Item Value Reference Range Interpretation Comments MARK SPECIES (test code = 10659) NEGATIVE G. VAGINALIS (test code = 56086) NEGATIVE T. VAGINALIS (test code = 31918) NEGATIVE VAGINAL PATHOGENS DNA [id number] 00:00:00 Test Item Value Reference Range Interpretation Comments MARK SPECIES (test code = 54241) NEGATIVE G. VAGINALIS (test code = 06621) NEGATIVE T. VAGINALIS (test code = 16954) NEGATIVE VAGINAL PATHOGENS DNA [id number] 00:00:00 Test Item Value Reference Range Interpretation Comments MARK SPECIES (test code = 43571) NEGATIVE G. VAGINALIS (test code = 35965) NEGATIVE T. VAGINALIS (test code = 02229) NEGATIVE VAGINAL PATHOGENS DNA [id number] 00:00:00 Test Item Value Reference Range Interpretation Comments MARK SPECIES (test code = ) NEGATIVE G. VAGINALIS (test code = 94553) NEGATIVE T. VAGINALIS (test code = 34992) NEGATIVE VAGINAL PATHOGENS DNA [id number] 00:00:00 Test Item Value Reference Range Interpretation Comments MARK SPECIES (test code = ) NEGATIVE G. VAGINALIS (test code = 32923) NEGATIVE T. VAGINALIS (test code = 59127) NEGATIVE HEMOGLOBIN A1c [ADDED]2018-12-01 00:00:00 Test Item Value Reference Range Interpretation Comments HEMOGLOBIN A1c (test code = 84249) 6.7 % HEMOGLOBIN A1c [ADDED]2018-12-01 00:00:00 Test Item Value Reference Range Interpretation Comments HEMOGLOBIN A1c (test code = 54793) 6.7 % HEMOGLOBIN A1c [ADDED]2018-12-01 00:00:00 Test Item Value Reference Range Interpretation Comments HEMOGLOBIN A1c (test code = 01724) 6.7 % COMPREHENSIVE METABOLIC PANEL [ADDED]2018-12-01 00:00:00 Test Item Value Reference Range Interpretation Comments GLUCOSE (test code = 2217) 136 MG/DL BUN (test code = 2208) 15 MG/DL CREATININE (test code = 2214) 0.64 MG/DL eGFR AMER. (test code 115 ML/MIN/1.73 = 37921) eGFR NON- AMER. (test 99 ML/MIN/1.73 code = 75088) CALC BUN/CREAT (test code = 23 RATIO [...] eGFR AMER. (test code 115 ML/MIN/1.73 = 99654) eGFR NON- AMER. (test 99 ML/MIN/1.73 code = 60177) CALC BUN/CREAT (test code = 23 RATIO [...] Interpretation Comments HEMOGLOBIN A1c (test code = 73688) 6.7 % HEMOGLOBIN A1c [ADDED]2018-12-01 00:00:00 Test Item Value Reference Range Interpretation Comments HEMOGLOBIN A1c (test code = 00314) 6.7 % COMPREHENSIVE METABOLIC PANEL [ADDED]2018-12-01 00:00:00 Test Item Value Reference Range Interpretation Comments GLUCOSE (test code = 2217) 136 MG/DL BUN (test code = 2208) 15 MG/DL CREATININE (test code = 2214) 0.64 MG/DL eGFR AMER. (test code 115 ML/MIN/1.73 = 79161) eGFR NON- AMER. (test 99 ML/MIN/1.73 code = 74383) CALC BUN/CREAT (test code = 23 RATIO [...] Interpretation Comments HEMOGLOBIN A1c (test code = 81048) 6.7 % HEMOGLOBIN A1c [ADDED]2018-12-01 00:00:00 Test Item Value Reference Range Interpretation Comments HEMOGLOBIN A1c (test code = 98113) 6.7 % HEMOGLOBIN A1c [ADDED]2018-12-01 00:00:00 Test Item Value Reference Range Interpretation Comments HEMOGLOBIN A1c (test code = 83771) 6.7 % COMPREHENSIVE METABOLIC PANEL [ADDED]2018-12-01 00:00:00 Test Item Value Reference Range Interpretation Comments GLUCOSE (test code = 2217) 136 MG/DL BUN (test code = 2208) 15 MG/DL CREATININE (test code = 2214) 0.64 MG/DL eGFR AMER. (test code 115 ML/MIN/1.73 = 19572) eGFR NON- AMER. (test 99 ML/MIN/1.73 code = 86790) CALC BUN/CREAT (test code = 23 RATIO [...] eGFR AMER. (test code 115 ML/MIN/1.73 = 20902) eGFR NON- AMER. (test 99 ML/MIN/1.73 code = 02630) CALC BUN/CREAT (test code = 23 RATIO [...] = <0.2 MG/DL 2207) ALKALINE PHOSPHATASE (test 111 U/L code = [...] code 1.280 UIU/ML = 2821) CBC W/AUTO [id number] 00:00:00 Test Item Value Reference Range Interpretation [...] code = 1015) 346 K/UL CBC W/AUTO [id number] 00:00:00 Test Item Value Reference Range Interpretation [...] code = 1015) 346 K/UL CBC W/AUTO [id number] 00:00:00 Test Item Value Reference Range Interpretation [...] (test code = 1015) 346 K/UL HEMOGLOBIN [id number] 00:00:00 Test Item Value Reference Range Interpretation Comments HEMOGLOBIN A1c (test code = 09078) 5.9 % HEMOGLOBIN [id number] 00:00:00 Test Item Value Reference Range Interpretation Comments HEMOGLOBIN A1c (test code = 16698) 5.9 % HEMOGLOBIN [id number] 00:00:00 Test Item Value Reference Range Interpretation Comments HEMOGLOBIN A1c (test code = 27512) 5.9 % LIPID [id number] 00:00:00 Test Item Value Reference Range Interpretation Comments CHOLESTEROL (test code = 2210) 318 MG/DL TRIGLYCERIDES (test code = 2232) 263 MG/DL HDL CHOLESTEROL (test code = 2220) 51 MG/DL CALC LDL CHOL (test code = 2237) 214 MG/DL RISK RATIO LDL/HDL (test code = 4.20 RATIO 2238) LIPID [id number] 00:00:00 Test Item Value Reference Range Interpretation Comments CHOLESTEROL (test code = 2210) 318 MG/DL TRIGLYCERIDES (test code = 2232) 263 MG/DL HDL CHOLESTEROL (test code = 2220) 51 MG/DL CALC LDL CHOL (test code = 2237) 214 MG/DL RISK RATIO LDL/HDL (test code = 4.20 RATIO 2238) COMPREHENSIVE METABOLIC [id number] 00:00:00 Test Item Value Reference Range Interpretation Comments GLUCOSE (test code = 2217) 113 MG/DL BUN (test code = 2208) 18 MG/DL CREATININE (test code = 2214) 0.70 MG/DL eGFR AMER. (test code 111 ML/MIN/1.73 = 19855) eGFR NON- AMER. (test 96 ML/MIN/1.73 code = 88460) CALC BUN/CREAT (test code = 26 RATIO [...] = <0.2 MG/DL 220) ALKALINE PHOSPHATASE (test 80 U/L code = 2204) AST (test code = 2218) 21 U/L ALT (test code = 2219) 31 U/L COMPREHENSIVE METABOLIC [id number] 00:00:00 Test Item Value Reference Range Interpretation Comments GLUCOSE (test code = 2217) 113 MG/DL BUN (test code = 2208) 18 MG/DL CREATININE (test code = 2214) 0.70 MG/DL eGFR AMER. (test code 111 ML/MIN/1.73 = 73450) eGFR NON- AMER. (test 96 ML/MIN/1.73 code = 61858) CALC BUN/CREAT (test code = 26 RATIO [...] ALKALINE PHOSPHATASE (test 80 U/L code = 220) AST (test code = 2218) 21 U/L ALT (test code = 2219) 31 U/L [id number] 00:00:00 Test Item Value Reference Range Interpretation Comments TSH, THIRD GENERATION (test code 2.520 UIU/ML = 2821) [id number] 00:00:00 Test Item Value Reference Range Interpretation Comments TSH, THIRD GENERATION (test code 2.520 UIU/ML = 2821) [id number] 00:00:00 Test Item Value Reference Range Interpretation Comments TSH, THIRD GENERATION (test code 2.520 UIU/ML = 2821) CBC W/AUTO [id number] 00:00:00 Test Item Value Reference Range Interpretation [...] code = 1015) 346 K/UL CBC W/AUTO [id number] 00:00:00 Test Item Value Reference Range Interpretation [...] (test code = 1015) 346 K/UL HEMOGLOBIN [id number] 00:00:00 Test Item Value Reference Range Interpretation Comments HEMOGLOBIN A1c (test code = 50542) 5.9 % HEMOGLOBIN [id number] 00:00:00 Test Item Value Reference Range Interpretation Comments HEMOGLOBIN A1c (test code = 70309) 5.9 % LIPID [id number] 00:00:00 Test Item Value Reference Range Interpretation Comments CHOLESTEROL (test code = 2210) 318 MG/DL TRIGLYCERIDES (test code = 2232) 263 MG/DL HDL CHOLESTEROL (test code = 2220) 51 MG/DL CALC LDL CHOL (test code = 2237) 214 MG/DL RISK RATIO LDL/HDL (test code = 4.20 RATIO 2238) COMPREHENSIVE METABOLIC [id number] 00:00:00 Test Item Value Reference Range Interpretation Comments GLUCOSE (test code = 2217) 113 MG/DL BUN (test code = 2208) 18 MG/DL CREATININE (test code = 2214) 0.70 MG/DL eGFR AMER. (test code 111 ML/MIN/1.73 = 08280) eGFR NON- AMER. (test 96 ML/MIN/1.73 code = 24850) CALC BUN/CREAT (test code = 26 RATIO [...] ALT (test code = 2219) 31 U/L [id number] 00:00:00 Test Item Value Reference Range Interpretation Comments TSH, THIRD GENERATION (test code 2.520 UIU/ML = 2821) [id number] 00:00:00 Test Item Value Reference Range Interpretation Comments TSH, THIRD GENERATION (test code 2.520 UIU/ML = 2821) CBC W/AUTO [id number] 00:00:00 Test Item Value Reference Range Interpretation [...] code = 1015) 346 K/UL CBC W/AUTO [id number] 00:00:00 Test Item Value Reference Range Interpretation [...] code = 1015) 346 K/UL CBC W/AUTO [id number] 00:00:00 Test Item Value Reference Range Interpretation [...] (test code = 1015) 346 K/UL HEMOGLOBIN [id number] 00:00:00 Test Item Value Reference Range Interpretation Comments HEMOGLOBIN A1c (test code = 70417) 5.9 % HEMOGLOBIN [id number] 00:00:00 Test Item Value Reference Range Interpretation Comments HEMOGLOBIN A1c (test code = 84535) 5.9 % HEMOGLOBIN [id number] 00:00:00 Test Item Value Reference Range Interpretation Comments HEMOGLOBIN A1c (test code = 72519) 5.9 % LIPID [id number] 00:00:00 Test Item Value Reference Range Interpretation Comments CHOLESTEROL (test code = 2210) 318 MG/DL TRIGLYCERIDES (test code = 2232) 263 MG/DL HDL CHOLESTEROL (test code = 2220) 51 MG/DL CALC LDL CHOL (test code = 2237) 214 MG/DL RISK RATIO LDL/HDL (test code = 4.20 RATIO 2238) LIPID [id number] 00:00:00 Test Item Value Reference Range Interpretation Comments CHOLESTEROL (test code = 2210) 318 MG/DL TRIGLYCERIDES (test code = 2232) 263 MG/DL HDL CHOLESTEROL (test code = 2220) 51 MG/DL CALC LDL CHOL (test code = 2237) 214 MG/DL RISK RATIO LDL/HDL (test code = 4.20 RATIO 2238) COMPREHENSIVE METABOLIC [id number] 00:00:00 Test Item Value Reference Range Interpretation Comments GLUCOSE (test code = 2217) 113 MG/DL BUN (test code = 2208) 18 MG/DL CREATININE (test code = 2214) 0.70 MG/DL eGFR AMER. (test code 111 ML/MIN/1.73 = 53401) eGFR NON- AMER. (test 96 ML/MIN/1.73 code = 85240) CALC BUN/CREAT (test code = 26 RATIO [...] code = 2219) 31 U/L COMPREHENSIVE METABOLIC [id number] 00:00:00 Test Item Value Reference Range Interpretation Comments GLUCOSE (test code = 2217) 113 MG/DL BUN (test code = 2208) 18 MG/DL CREATININE (test code = 2214) 0.70 MG/DL eGFR AMER. (test code 111 ML/MIN/1.73 = 55080) eGFR NON- AMER. (test 96 ML/MIN/1.73 code = 03273) CALC BUN/CREAT (test code = 26 RATIO [...] ALT (test code = 2219) 31 U/L [id number] 00:00:00 Test Item Value Reference Range Interpretation Comments TSH, THIRD GENERATION (test code 2.520 UIU/ML = 2821) [id number] 00:00:00 Test Item Value Reference Range Interpretation Comments TSH, THIRD GENERATION (test code 2.520 UIU/ML = 2821) [id number] 00:00:00 Test Item Value Reference Range Interpretation Comments TSH, THIRD GENERATION (test code 2.520 UIU/ML = 2821) CULTURE, [id number] 00:00:00 Test Item Value Reference Range Interpretation Comments CULTURE, URINE (test SPECIMEN NUMBER: code = 63032) [id number] CULTURE, [id number] 00:00:00 Test Item Value Reference Range Interpretation Comments CULTURE, URINE (test SPECIMEN NUMBER: code = 62580) [id number] CULTURE, [id number] 00:00:00 Test Item Value Reference Range Interpretation Comments CULTURE, URINE (test SPECIMEN NUMBER: code = 50716) [id number] CULTURE, [id number] 00:00:00 Test Item Value Reference Range Interpretation Comments CULTURE, URINE (test SPECIMEN NUMBER: code = 21818) [id number] CULTURE, [id number] 00:00:00 Test Item Value Reference Range Interpretation Comments CULTURE, URINE (test SPECIMEN NUMBER: code = 48795) [id number] CULTURE, [id number] 00:00:00 Test Item Value Reference Range Interpretation Comments CULTURE, URINE (test SPECIMEN NUMBER: code = 34892) [id number] CULTURE, [id number] 00:00:00 Test Item Value Reference Range Interpretation Comments CULTURE, URINE (test SPECIMEN NUMBER: code = 02917) [id number] CULTURE, [id number] 00:00:00 Test Item Value Reference Range Interpretation Comments CULTURE, URINE (test SPECIMEN NUMBER: code = 65450) [id number] CULTURE, [id number] 00:00:00 Test Item Value Reference Range Interpretation Comments CULTURE, URINE (test SPECIMEN NUMBER: code = 86084) [id number] CULTURE, [id number] 00:00:00 Test Item Value Reference Range Interpretation Comments CULTURE, URINE (test SPECIMEN NUMBER: code = 75501) [id number] BASIC METABOLIC [id number] 00:00:00 Test Item Value Reference Range Interpretation Comments GLUCOSE (test code = 2217) 135 MG/DL BUN (test code = 2208) 25 MG/DL CREATININE (test code = 2214) 0.76 MG/DL eGFR AMER. (test code 101 ML/MIN/1.73 = 14492) eGFR NON- AMER. (test 87 ML/MIN/1.73 code = 84951) SODIUM (test code = 2231) 139 MEQ/L POTASSIUM (test code = 2228) 4.7 MEQ/L CHLORIDE (test code = 2215) 99 MEQ/L CARBON DIOXIDE (test code = 26 MEQ/L 2206) CALCIUM (test code = 2209) 9.4 MG/DL BASIC METABOLIC [id number] 00:00:00 Test Item Value Reference Range Interpretation Comments GLUCOSE (test code = 2217) 135 MG/DL BUN (test code = 2208) 25 MG/DL CREATININE (test code = 2214) 0.76 MG/DL eGFR AMER. (test code 101 ML/MIN/1.73 = 85778) eGFR NON- AMER. (test 87 ML/MIN/1.73 code = 92239) SODIUM (test code = 2231) 139 MEQ/L POTASSIUM (test code = 2228) 4.7 MEQ/L CHLORIDE (test code = 2215) 99 MEQ/L CARBON DIOXIDE (test code = 26 MEQ/L 2206) CALCIUM (test code = 2209) 9.4 MG/DL LIPID [id number] 00:00:00 Test Item Value Reference Range Interpretation Comments CHOLESTEROL (test code = 2210) 262 MG/DL TRIGLYCERIDES (test code = 2232) 300 MG/DL HDL CHOLESTEROL (test code = 2220) 36 MG/DL CALC LDL CHOL (test code = 2237) 166 MG/DL RISK RATIO LDL/HDL (test code = 4.61 RATIO 2238) LIPID [id number] 00:00:00 Test Item Value Reference Range Interpretation Comments CHOLESTEROL (test code = 2210) 262 MG/DL TRIGLYCERIDES (test code = 2232) 300 MG/DL HDL CHOLESTEROL (test code = 2220) 36 MG/DL CALC LDL CHOL (test code = 2237) 166 MG/DL RISK RATIO LDL/HDL (test code = 4.61 RATIO 2238) HEMOGLOBIN [id number] 00:00:00 Test Item Value Reference Range Interpretation Comments HEMOGLOBIN A1c (test code = 71290) 6.2 % HEMOGLOBIN [id number] 00:00:00 Test Item Value Reference Range Interpretation Comments HEMOGLOBIN A1c (test code = 84381) 6.2 % HEMOGLOBIN [id number] 00:00:00 Test Item Value Reference Range Interpretation Comments HEMOGLOBIN A1c (test code = 89619) 6.2 % [id number] 00:00:00 Test Item Value Reference Range Interpretation Comments TSH, THIRD GENERATION (test code 0.988 UIU/ML = 2821) [id number] 00:00:00 Test Item Value Reference Range Interpretation Comments TSH, THIRD GENERATION (test code 0.988 UIU/ML = 2821) [id number] 00:00:00 Test Item Value Reference Range Interpretation Comments TSH, THIRD GENERATION (test code 0.988 UIU/ML = 2821) BASIC METABOLIC [id number] 00:00:00 Test Item Value Reference Range Interpretation Comments GLUCOSE (test code = 2217) 135 MG/DL BUN (test code = 2208) 25 MG/DL CREATININE (test code = 2214) 0.76 MG/DL eGFR AMER. (test code 101 ML/MIN/1.73 = 52347) eGFR NON- AMER. (test 87 ML/MIN/1.73 code = 44287) SODIUM (test code = 2231) 139 MEQ/L POTASSIUM (test code = 2228) 4.7 MEQ/L CHLORIDE (test code = 2215) 99 MEQ/L CARBON DIOXIDE (test code = 26 MEQ/L 2206) CALCIUM (test code = 2209) 9.4 MG/DL LIPID [id number] 00:00:00 Test Item Value Reference Range Interpretation Comments CHOLESTEROL (test code = 2210) 262 MG/DL TRIGLYCERIDES (test code = 2232) 300 MG/DL HDL CHOLESTEROL (test code = 2220) 36 MG/DL CALC LDL CHOL (test code = 2237) 166 MG/DL RISK RATIO LDL/HDL (test code = 4.61 RATIO 2238) HEMOGLOBIN [id number] 00:00:00 Test Item Value Reference Range Interpretation Comments HEMOGLOBIN A1c (test code = 20772) 6.2 % HEMOGLOBIN [id number] 00:00:00 Test Item Value Reference Range Interpretation Comments HEMOGLOBIN A1c (test code = 17585) 6.2 % [id number] 00:00:00 Test Item Value Reference Range Interpretation Comments TSH, THIRD GENERATION (test code 0.988 UIU/ML = 2821) [id number] 00:00:00 Test Item Value Reference Range Interpretation Comments TSH, THIRD GENERATION (test code 0.988 UIU/ML = 2821) BASIC METABOLIC [id number] 00:00:00 Test Item Value Reference Range Interpretation Comments GLUCOSE (test code = 2217) 135 MG/DL BUN (test code = 2208) 25 MG/DL CREATININE (test code = 2214) 0.76 MG/DL eGFR AMER. (test code 101 ML/MIN/1.73 = 24460) eGFR NON- AMER. (test 87 ML/MIN/1.73 code = 19987) SODIUM (test code = 2231) 139 MEQ/L POTASSIUM (test code = 2228) 4.7 MEQ/L CHLORIDE (test code = 2215) 99 MEQ/L CARBON DIOXIDE (test code = 26 MEQ/L 2206) CALCIUM (test code = 2209) 9.4 MG/DL BASIC METABOLIC [id number] 00:00:00 Test Item Value Reference Range Interpretation Comments GLUCOSE (test code = 2217) 135 MG/DL BUN (test code = 2208) 25 MG/DL CREATININE (test code = 2214) 0.76 MG/DL eGFR AMER. (test code 101 ML/MIN/1.73 = 82559) eGFR NON- AMER. (test 87 ML/MIN/1.73 code = 68866) SODIUM (test code = 2231) 139 MEQ/L POTASSIUM (test code = 2228) 4.7 MEQ/L CHLORIDE (test code = 2215) 99 MEQ/L CARBON DIOXIDE (test code = 26 MEQ/L 2206) CALCIUM (test code = 2209) 9.4 MG/DL LIPID [id number] 00:00:00 Test Item Value Reference Range Interpretation Comments CHOLESTEROL (test code = 2210) 262 MG/DL TRIGLYCERIDES (test code = 2232) 300 MG/DL HDL CHOLESTEROL (test code = 2220) 36 MG/DL CALC LDL CHOL (test code = 2237) 166 MG/DL RISK RATIO LDL/HDL (test code = 4.61 RATIO 2238) LIPID [id number] 00:00:00 Test Item Value Reference Range Interpretation Comments CHOLESTEROL (test code = 2210) 262 MG/DL TRIGLYCERIDES (test code = 2232) 300 MG/DL HDL CHOLESTEROL (test code = 2220) 36 MG/DL CALC LDL CHOL (test code = 2237) 166 MG/DL RISK RATIO LDL/HDL (test code = 4.61 RATIO 2238) HEMOGLOBIN [id number] 00:00:00 Test Item Value Reference Range Interpretation Comments HEMOGLOBIN A1c (test code = 60838) 6.2 % HEMOGLOBIN [id number] 00:00:00 Test Item Value Reference Range Interpretation Comments HEMOGLOBIN A1c (test code = 77695) 6.2 % HEMOGLOBIN [id number] 00:00:00 Test Item Value Reference Range Interpretation Comments HEMOGLOBIN A1c (test code = 43685) 6.2 % [id number] 00:00:00 Test Item Value Reference Range Interpretation Comments TSH, THIRD GENERATION (test code 0.988 UIU/ML = 2821) [id number] 00:00:00 Test Item Value Reference Range Interpretation Comments TSH, THIRD GENERATION (test code 0.988 UIU/ML = 2821) [id number] 00:00:00 Test Item Value Reference Range Interpretation Comments TSH, THIRD GENERATION (test code 0.988 UIU/ML = 2821) COMPREHENSIVE METABOLIC [id number] 00:00:00 Test Item Value Reference Range Interpretation Comments GLUCOSE (test code = 2217) 109 MG/DL BUN (test code = 2208) 25 MG/DL CREATININE (test code = 2214) 0.78 MG/DL eGFR AMER. (test code 98 ML/MIN/1.73 = 13134) eGFR NON- AMER. (test 84 ML/MIN/1.73 code = 25306) CALC BUN/CREAT (test code = 32 RATIO [...] code = 2219) 25 U/L COMPREHENSIVE METABOLIC [id number] 00:00:00 Test Item Value Reference Range Interpretation Comments GLUCOSE (test code = 2217) 109 MG/DL BUN (test code = 2208) 25 MG/DL CREATININE (test code = 2214) 0.78 MG/DL eGFR AMER. (test code 98 ML/MIN/1.73 = 96895) eGFR NON- AMER. (test 84 ML/MIN/1.73 code = 78850) CALC BUN/CREAT (test code = 32 RATIO [...] (test code = 2219) 25 U/L LIPID [id number] 00:00:00 Test Item Value Reference Range Interpretation Comments CHOLESTEROL (test code = 2210) 295 MG/DL TRIGLYCERIDES (test code = 2232) 218 MG/DL HDL CHOLESTEROL (test code = 2220) 46 MG/DL CALC LDL CHOL (test code = 2237) 205 MG/DL RISK RATIO LDL/HDL (test code = 4.47 RATIO 2238) LIPID [id number] 00:00:00 Test Item Value Reference Range Interpretation Comments CHOLESTEROL (test code = 2210) 295 MG/DL TRIGLYCERIDES (test code = 2232) 218 MG/DL HDL CHOLESTEROL (test code = 2220) 46 MG/DL CALC LDL CHOL (test code = 2237) 205 MG/DL RISK RATIO LDL/HDL (test code = 4.47 RATIO 2238) HEMOGLOBIN [id number] 00:00:00 Test Item Value Reference Range Interpretation Comments HEMOGLOBIN A1c (test code = 73300) 7.0 % HEMOGLOBIN [id number] 00:00:00 Test Item Value Reference Range Interpretation Comments HEMOGLOBIN A1c (test code = 79392) 7.0 % HEMOGLOBIN [id number] 00:00:00 Test Item Value Reference Range Interpretation Comments HEMOGLOBIN A1c (test code = 64560) 7.0 % [id number] 00:00:00 Test Item Value Reference Range Interpretation Comments TSH, THIRD GENERATION (test code 0.565 UIU/ML = 2821) [id number] 00:00:00 Test Item Value Reference Range Interpretation Comments TSH, THIRD GENERATION (test code 0.565 UIU/ML = 2821) [id number] 00:00:00 Test Item Value Reference Range Interpretation Comments TSH, THIRD GENERATION (test code 0.565 UIU/ML = 2821) COMPREHENSIVE METABOLIC [id number] 00:00:00 Test Item Value Reference Range Interpretation Comments GLUCOSE (test code = 2217) 109 MG/DL BUN (test code = 2208) 25 MG/DL CREATININE (test code = 2214) 0.78 MG/DL eGFR AMER. (test code 98 ML/MIN/1.73 = 88409) eGFR NON- AMER. (test 84 ML/MIN/1.73 code = 62099) CALC BUN/CREAT (test code = 32 RATIO [...] (test code = 2219) 25 U/L LIPID [id number] 00:00:00 Test Item Value Reference Range Interpretation Comments CHOLESTEROL (test code = 2210) 295 MG/DL TRIGLYCERIDES (test code = 2232) 218 MG/DL HDL CHOLESTEROL (test code = 2220) 46 MG/DL CALC LDL CHOL (test code = 2237) 205 MG/DL RISK RATIO LDL/HDL (test code = 4.47 RATIO 2238) HEMOGLOBIN [id number] 00:00:00 Test Item Value Reference Range Interpretation Comments HEMOGLOBIN A1c (test code = 60094) 7.0 % HEMOGLOBIN [id number] 00:00:00 Test Item Value Reference Range Interpretation Comments HEMOGLOBIN A1c (test code = 44022) 7.0 % [id number] 00:00:00 Test Item Value Reference Range Interpretation Comments TSH, THIRD GENERATION (test code 0.565 UIU/ML = 2821) [id number] 00:00:00 Test Item Value Reference Range Interpretation Comments TSH, THIRD GENERATION (test code 0.565 UIU/ML = 2821) COMPREHENSIVE METABOLIC [id number] 00:00:00 Test Item Value Reference Range Interpretation Comments GLUCOSE (test code = 2217) 109 MG/DL BUN (test code = 2208) 25 MG/DL CREATININE (test code = 2214) 0.78 MG/DL eGFR AMER. (test code 98 ML/MIN/1.73 = 04319) eGFR NON- AMER. (test 84 ML/MIN/1.73 code = 39744) CALC BUN/CREAT (test code = 32 RATIO [...] code = 2219) 25 U/L COMPREHENSIVE METABOLIC [id number] 00:00:00 Test Item Value Reference Range Interpretation Comments GLUCOSE (test code = 2217) 109 MG/DL BUN (test code = 2208) 25 MG/DL CREATININE (test code = 2214) 0.78 MG/DL eGFR AMER. (test code 98 ML/MIN/1.73 = 10840) eGFR NON- AMER. (test 84 ML/MIN/1.73 code = 22686) CALC BUN/CREAT (test code = 32 RATIO [...] (test code = 2219) 25 U/L LIPID [id number] 00:00:00 Test Item Value Reference Range Interpretation Comments CHOLESTEROL (test code = 2210) 295 MG/DL TRIGLYCERIDES (test code = 2232) 218 MG/DL HDL CHOLESTEROL (test code = 2220) 46 MG/DL CALC LDL CHOL (test code = 2237) 205 MG/DL RISK RATIO LDL/HDL (test code = 4.47 RATIO 2238) LIPID [id number] 00:00:00 Test Item Value Reference Range Interpretation Comments CHOLESTEROL (test code = 2210) 295 MG/DL TRIGLYCERIDES (test code = 2232) 218 MG/DL HDL CHOLESTEROL (test code = 2220) 46 MG/DL CALC LDL CHOL (test code = 2237) 205 MG/DL RISK RATIO LDL/HDL (test code = 4.47 RATIO 2238) HEMOGLOBIN [id number] 00:00:00 Test Item Value Reference Range Interpretation Comments HEMOGLOBIN A1c (test code = 78692) 7.0 % HEMOGLOBIN [id number] 00:00:00 Test Item Value Reference Range Interpretation Comments HEMOGLOBIN A1c (test code = 95979) 7.0 % HEMOGLOBIN [id number] 00:00:00 Test Item Value Reference Range Interpretation Comments HEMOGLOBIN A1c (test code = 17149) 7.0 % [id number] 00:00:00 Test Item Value Reference Range Interpretation Comments TSH, THIRD GENERATION (test code 0.565 UIU/ML = 2821) [id number] 00:00:00 Test Item Value Reference Range Interpretation Comments TSH, THIRD GENERATION (test code 0.565 UIU/ML = 2821) [id number] 00:00:00 Test Item Value Reference Range Interpretation Comments TSH, THIRD GENERATION (test code 0.565 UIU/ML = 2821) [id number] 00:00:00 Test Item Value Reference Range Interpretation Comments TSH, THIRD GENERATION (test code 0.379 UIU/ML = 2821) [id number] 00:00:00 Test Item Value Reference Range Interpretation Comments TSH, THIRD GENERATION (test code 0.379 UIU/ML = 2821) [id number] 00:00:00 Test Item Value Reference Range Interpretation Comments TSH, THIRD GENERATION (test code 0.379 UIU/ML = 2821) [id number] 00:00:00 Test Item Value Reference Range Interpretation Comments TSH, THIRD GENERATION (test code 0.379 UIU/ML = 2821) [id number] 00:00:00 Test Item Value Reference Range Interpretation Comments TSH, THIRD GENERATION (test code 0.379 UIU/ML = 2821) [id number] 00:00:00 Test Item Value Reference Range Interpretation Comments TSH, THIRD GENERATION (test code 0.379 UIU/ML = 2821) [id number] 00:00:00 Test Item Value Reference Range Interpretation Comments TSH, THIRD GENERATION (test code 0.379 UIU/ML = 2821) [id number] 00:00:00 Test Item Value Reference Range Interpretation Comments TSH, THIRD GENERATION (test code 0.379 UIU/ML = 2821) CULTURE, [id number] 00:00:00 Test Item Value Reference Range Interpretation Comments CULTURE, URINE (test SPECIMEN NUMBER: code = 28001) [id number] CULTURE, [id number] 00:00:00 Test Item Value Reference Range Interpretation Comments CULTURE, URINE (test SPECIMEN NUMBER: code = 14255) [id number] CULTURE, [id number] 00:00:00 Test Item Value Reference Range Interpretation Comments CULTURE, URINE (test SPECIMEN NUMBER: code = 68285) [id number] CULTURE, [id number] 00:00:00 Test Item Value Reference Range Interpretation Comments CULTURE, URINE (test SPECIMEN NUMBER: code = 31533) [id number] CULTURE, [id number] 00:00:00 Test Item Value Reference Range Interpretation Comments CULTURE, URINE (test SPECIMEN NUMBER: code = 11355) [id number] COMPREHENSIVE METABOLIC [id number] 00:00:00 Test Item Value Reference Range Interpretation Comments GLUCOSE (test code = 2217) 128 MG/DL BUN (test code = 2208) 26 MG/DL CREATININE (test code = 2214) 0.92 MG/DL eGFR AMER. (test code 81 ML/MIN/1.73 = 38597) eGFR NON- AMER. (test 70 ML/MIN/1.73 code = 82194) CALC BUN/CREAT (test code = 28 RATIO [...] code = 2219) 29 U/L COMPREHENSIVE METABOLIC [id number] 00:00:00 Test Item Value Reference Range Interpretation Comments GLUCOSE (test code = 2217) 128 MG/DL BUN (test code = 2208) 26 MG/DL CREATININE (test code = 2214) 0.92 MG/DL eGFR AMER. (test code 81 ML/MIN/1.73 = 75992) eGFR NON- AMER. (test 70 ML/MIN/1.73 code = 63467) CALC BUN/CREAT (test code = 28 RATIO [...] code = 2219) 29 U/L ACUTE HEPATITIS [id number] 00:00:00 Test Item Value Reference Range Interpretation Comments HEPATITIS A IgM (test code = NON-REACTIVE 67210) HEPATITIS B CORE IgM (test code NON-REACTIVE = 4644) HEPATITIS B SURF AG (test code = NON-REACTIVE 2739) HEPATITIS C ANTIBODY (test code NON-REACTIVE = 4675) INTERPRETATION HEPATITIS A: (NOTE) (test code = 2552) INTERPRETATION HEPATITIS B: (NOTE) (test code = 45240) INTERPRETATION HEPATITIS C: (NOTE) (test code = 10306) ACUTE HEPATITIS [id number] 00:00:00 Test Item Value Reference Range Interpretation Comments HEPATITIS A IgM (test code = NON-REACTIVE 24679) HEPATITIS B CORE IgM (test code NON-REACTIVE = 4644) HEPATITIS B SURF AG (test code = NON-REACTIVE 2739) HEPATITIS C ANTIBODY (test code NON-REACTIVE = 4675) INTERPRETATION HEPATITIS A: (NOTE) (test code = 2552) INTERPRETATION HEPATITIS B: (NOTE) (test code = 11659) INTERPRETATION HEPATITIS C: (NOTE) (test code = 65081) [id number] 00:00:00 Test Item Value Reference Range Interpretation Comments AMYLASE (test code = 2205) 32 U/L [id number] 00:00:00 Test Item Value Reference Range Interpretation Comments AMYLASE (test code = 2205) 32 U/L [id number] 00:00:00 Test Item Value Reference Range Interpretation Comments LIPASE (test code = 2058) 22 U/L [id number] 00:00:00 Test Item Value Reference Range Interpretation Comments LIPASE (test code = 2058) 22 U/L [id number] 00:00:00 Test Item Value Reference Range Interpretation Comments LIPASE (test code = 2058) 22 U/L COMPREHENSIVE METABOLIC [id number] 00:00:00 Test Item Value Reference Range Interpretation Comments GLUCOSE (test code = 2217) 128 MG/DL BUN (test code = 2208) 26 MG/DL CREATININE (test code = 2214) 0.92 MG/DL eGFR AMER. (test code 81 ML/MIN/1.73 = 62556) eGFR NON- AMER. (test 70 ML/MIN/1.73 code = 37377) CALC BUN/CREAT (test code = 28 RATIO [...] code = 2219) 29 U/L ACUTE HEPATITIS [id number] 00:00:00 Test Item Value Reference Range Interpretation Comments HEPATITIS A IgM (test code = NON-REACTIVE 44150) HEPATITIS B CORE IgM (test code NON-REACTIVE = 2163) HEPATITIS B SURF AG (test code = NON-REACTIVE 4354) HEPATITIS C ANTIBODY (test code NON-REACTIVE = 1072) INTERPRETATION HEPATITIS A: (NOTE) (test code = 2552) INTERPRETATION HEPATITIS B: (NOTE) (test code = 49733) INTERPRETATION HEPATITIS C: (NOTE) (test code = 50809) [id number] 00:00:00 Test Item Value Reference Range Interpretation Comments AMYLASE (test code = 2205) 32 U/L [id number] 00:00:00 Test Item Value Reference Range Interpretation Comments LIPASE (test code = 2057) 22 U/L [id number] 00:00:00 Test Item Value Reference Range Interpretation Comments LIPASE (test code = 2057) 22 U/L COMPREHENSIVE METABOLIC [id number] 00:00:00 Test Item Value Reference Range Interpretation Comments GLUCOSE (test code = 2217) 128 MG/DL BUN (test code = 2208) 26 MG/DL CREATININE (test code = 2214) 0.92 MG/DL eGFR AMER. (test code 81 ML/MIN/1.73 = 09974) eGFR NON- AMER. (test 70 ML/MIN/1.73 code = 61104) CALC BUN/CREAT (test code = 28 RATIO [...] code = 2219) 29 U/L COMPREHENSIVE METABOLIC [id number] 00:00:00 Test Item Value Reference Range Interpretation Comments GLUCOSE (test code = 2217) 128 MG/DL BUN (test code = 2208) 26 MG/DL CREATININE (test code = 2214) 0.92 MG/DL eGFR AMER. (test code 81 ML/MIN/1.73 = 02462) eGFR NON- AMER. (test 70 ML/MIN/1.73 code = 09401) CALC BUN/CREAT (test code = 28 RATIO [...] code = 2219) 29 U/L ACUTE HEPATITIS [id number] 00:00:00 Test Item Value Reference Range Interpretation Comments HEPATITIS A IgM (test code = NON-REACTIVE 49177) HEPATITIS B CORE IgM (test code NON-REACTIVE = 4644) HEPATITIS B SURF AG (test code = NON-REACTIVE 2739) HEPATITIS C ANTIBODY (test code NON-REACTIVE = 4675) INTERPRETATION HEPATITIS A: (NOTE) (test code = 2552) INTERPRETATION HEPATITIS B: (NOTE) (test code = 24815) INTERPRETATION HEPATITIS C: (NOTE) (test code = 09502) ACUTE HEPATITIS [id number] 00:00:00 Test Item Value Reference Range Interpretation Comments HEPATITIS A IgM (test code = NON-REACTIVE 96401) HEPATITIS B CORE IgM (test code NON-REACTIVE = 4644) HEPATITIS B SURF AG (test code = NON-REACTIVE 2739) HEPATITIS C ANTIBODY (test code NON-REACTIVE = 4675) INTERPRETATION HEPATITIS A: (NOTE) (test code = 2552) INTERPRETATION HEPATITIS B: (NOTE) (test code = 13948) INTERPRETATION HEPATITIS C: (NOTE) (test code = 40340) [id number] 00:00:00 Test Item Value Reference Range Interpretation Comments AMYLASE (test code = 2205) 32 U/L [id number] 00:00:00 Test Item Value Reference Range Interpretation Comments AMYLASE (test code = 2205) 32 U/L [id number] 00:00:00 Test Item Value Reference Range Interpretation Comments LIPASE (test code = 2058) 22 U/L [id number] 00:00:00 Test Item Value Reference Range Interpretation Comments LIPASE (test code = 2058) 22 U/L [id number] 00:00:00 Test Item Value Reference Range Interpretation Comments LIPASE (test code = 2058) 22 U/L [id number] 00:00:00 Test Item Value Reference Range Interpretation Comments TSH, THIRD GENERATION (test code 4.890 UIU/ML = 2821) [id number] 00:00:00 Test Item Value Reference Range Interpretation Comments TSH, THIRD GENERATION (test code 4.890 UIU/ML = 2821) [id number] 00:00:00 Test Item Value Reference Range Interpretation Comments TSH, THIRD GENERATION (test code 4.890 UIU/ML = 2821) COMPREHENSIVE METABOLIC [id number] 00:00:00 Test Item Value Reference Range Interpretation Comments GLUCOSE (test code = 2217) 121 MG/DL BUN (test code = 2208) 40 MG/DL CREATININE (test code = 2214) 1.48 MG/DL eGFR AMER. (test code 45 ML/MIN/1.73 = 28885) eGFR NON- AMER. (test 39 ML/MIN/1.73 code = 41233) CALC BUN/CREAT (test code = 27 RATIO [...] code = 2219) 20 U/L COMPREHENSIVE METABOLIC [id number] 00:00:00 Test Item Value Reference Range Interpretation Comments GLUCOSE (test code = 2217) 121 MG/DL BUN (test code = 2208) 40 MG/DL CREATININE (test code = 2214) 1.48 MG/DL eGFR AMER. (test code 45 ML/MIN/1.73 = 72812) eGFR NON- AMER. (test 39 ML/MIN/1.73 code = 52145) CALC BUN/CREAT (test code = 27 RATIO [...] ALT (test code = 2219) 20 U/L [id number] 00:00:00 Test Item Value Reference Range Interpretation Comments TSH, THIRD GENERATION (test code 4.890 UIU/ML = 2821) [id number] 00:00:00 Test Item Value Reference Range Interpretation Comments TSH, THIRD GENERATION (test code 4.890 UIU/ML = 2821) COMPREHENSIVE METABOLIC [id number] 00:00:00 Test Item Value Reference Range Interpretation Comments GLUCOSE (test code = 2217) 121 MG/DL BUN (test code = 2208) 40 MG/DL CREATININE (test code = 2214) 1.48 MG/DL eGFR AMER. (test code 45 ML/MIN/1.73 = 77352) eGFR NON- AMER. (test 39 ML/MIN/1.73 code = 28650) CALC BUN/CREAT (test code = 27 RATIO [...] ALT (test code = 2219) 20 U/L [id number] 00:00:00 Test Item Value Reference Range Interpretation Comments TSH, THIRD GENERATION (test code 4.890 UIU/ML = 2821) [id number] 00:00:00 Test Item Value Reference Range Interpretation Comments TSH, THIRD GENERATION (test code 4.890 UIU/ML = 2821) [id number] 00:00:00 Test Item Value Reference Range Interpretation Comments TSH, THIRD GENERATION (test code 4.890 UIU/ML = 2821) COMPREHENSIVE METABOLIC [id number] 00:00:00 Test Item Value Reference Range Interpretation Comments GLUCOSE (test code = 2217) 121 MG/DL BUN (test code = 2208) 40 MG/DL CREATININE (test code = 2214) 1.48 MG/DL eGFR AMER. (test code 45 ML/MIN/1.73 = 60351) eGFR NON- AMER. (test 39 ML/MIN/1.73 code = 54994) CALC BUN/CREAT (test code = 27 RATIO [...] code = 2219) 20 U/L COMPREHENSIVE METABOLIC [id number] 00:00:00 Test Item Value Reference Range Interpretation Comments GLUCOSE (test code = 2217) 121 MG/DL BUN (test code = 2208) 40 MG/DL CREATININE (test code = 2214) 1.48 MG/DL eGFR AMER. (test code 45 ML/MIN/1.73 = 03141) eGFR NON- AMER. (test 39 ML/MIN/1.73 code = 05395) CALC BUN/CREAT (test code = 27 RATIO [...] (test code = 2219) 20 U/L LIPID [id number] 00:00:00 Test Item Value Reference Range Interpretation Comments CHOLESTEROL (test code = 2210) 261 MG/DL TRIGLYCERIDES (test code = 2232) 165 MG/DL HDL CHOLESTEROL (test code = 2220) 58 MG/DL CALC LDL CHOL (test code = 2237) 170 MG/DL RISK RATIO LDL/HDL (test code = 2.93 RATIO 2238) LIPID [id number] 00:00:00 Test Item Value Reference Range Interpretation Comments CHOLESTEROL (test code = 2210) 261 MG/DL TRIGLYCERIDES (test code = 2232) 165 MG/DL HDL CHOLESTEROL (test code = 2220) 58 MG/DL CALC LDL CHOL (test code = 2237) 170 MG/DL RISK RATIO LDL/HDL (test code = 2.93 RATIO 2238) CBC W/AUTO [id number] 00:00:00 Test Item Value Reference Range Interpretation [...] code = 1015) 378 K/UL CBC W/AUTO [id number] 00:00:00 Test Item Value Reference Range Interpretation [...] code = 1015) 378 K/UL CBC W/AUTO [id number] 00:00:00 Test Item Value Reference Range Interpretation [...] (test code = 1015) 378 K/UL HEMOGLOBIN [id number] 00:00:00 Test Item Value Reference Range Interpretation Comments HEMOGLOBIN A1c (test code = 65213) 6.4 % HEMOGLOBIN [id number] 00:00:00 Test Item Value Reference Range Interpretation Comments HEMOGLOBIN A1c (test code = 85628) 6.4 % HEMOGLOBIN [id number] 00:00:00 Test Item Value Reference Range Interpretation Comments HEMOGLOBIN A1c (test code = 16726) 6.4 % [id number] 00:00:00 Test Item Value Reference Range Interpretation Comments TSH (test code = 2821) 5.290 UIU/ML [id number] 00:00:00 Test Item Value Reference Range Interpretation Comments TSH (test code = 2821) 5.290 UIU/ML [id number] 00:00:00 Test Item Value Reference Range Interpretation Comments TSH (test code = 2821) 5.290 UIU/ML LIPID [id number] 00:00:00 Test Item Value Reference Range Interpretation Comments CHOLESTEROL (test code = 2210) 261 MG/DL TRIGLYCERIDES (test code = 2232) 165 MG/DL HDL CHOLESTEROL (test code = 2220) 58 MG/DL CALC LDL CHOL (test code = 2237) 170 MG/DL RISK RATIO LDL/HDL (test code = 2.93 RATIO 2238) CBC W/AUTO [id number] 00:00:00 Test Item Value Reference Range Interpretation [...] code = 1015) 378 K/UL CBC W/AUTO [id number] 00:00:00 Test Item Value Reference Range Interpretation [...] (test code = 1015) 378 K/UL HEMOGLOBIN [id number] 00:00:00 Test Item Value Reference Range Interpretation Comments HEMOGLOBIN A1c (test code = 02646) 6.4 % HEMOGLOBIN [id number] 00:00:00 Test Item Value Reference Range Interpretation Comments HEMOGLOBIN A1c (test code = 75008) 6.4 % [id number] 00:00:00 Test Item Value Reference Range Interpretation Comments TSH (test code = 2821) 5.290 UIU/ML [id number] 00:00:00 Test Item Value Reference Range Interpretation Comments TSH (test code = 2821) 5.290 UIU/ML LIPID [id number] 00:00:00 Test Item Value Reference Range Interpretation Comments CHOLESTEROL (test code = 2210) 261 MG/DL TRIGLYCERIDES (test code = 2232) 165 MG/DL HDL CHOLESTEROL (test code = 2220) 58 MG/DL CALC LDL CHOL (test code = 2237) 170 MG/DL RISK RATIO LDL/HDL (test code = 2.93 RATIO 2238) LIPID [id number] 00:00:00 Test Item Value Reference Range Interpretation Comments CHOLESTEROL (test code = 2210) 261 MG/DL TRIGLYCERIDES (test code = 2232) 165 MG/DL HDL CHOLESTEROL (test code = 2220) 58 MG/DL CALC LDL CHOL (test code = 2237) 170 MG/DL RISK RATIO LDL/HDL (test code = 2.93 RATIO 2238) CBC W/AUTO [id number] 00:00:00 Test Item Value Reference Range Interpretation [...] code = 1015) 378 K/UL CBC W/AUTO [id number] 00:00:00 Test Item Value Reference Range Interpretation [...] code = 1015) 378 K/UL CBC W/AUTO [id number] 00:00:00 Test Item Value Reference Range Interpretation [...] (test code = 1015) 378 K/UL HEMOGLOBIN [id number] 00:00:00 Test Item Value Reference Range Interpretation Comments HEMOGLOBIN A1c (test code = 73501) 6.4 % HEMOGLOBIN [id number] 00:00:00 Test Item Value Reference Range Interpretation Comments HEMOGLOBIN A1c (test code = 32505) 6.4 % HEMOGLOBIN [id number] 00:00:00 Test Item Value Reference Range Interpretation Comments HEMOGLOBIN A1c (test code = 02349) 6.4 % [id number] 00:00:00 Test Item Value Reference Range Interpretation Comments TSH (test code = 2821) 5.290 UIU/ML [id number] 00:00:00 Test Item Value Reference Range Interpretation Comments TSH (test code = 2821) 5.290 UIU/ML [id number] 00:00:00 Test Item Value Reference Range Interpretation [...] code = 2821) 1.030 UIU/ML COMPREHENSIVE METABOLIC [id number] 00:00:00 Test Item Value Reference Range Interpretation Comments GLUCOSE (test code = 2217) 106 MG/DL BUN (test code = 2208) 23 MG/DL CREATININE (test code = 2214) 0.66 MG/DL eGFR AMER. (test code 114 ML/MIN/1.73 = 60182) eGFR NON- AMER. (test 99 ML/MIN/1.73 code = 94654) CALC BUN/CREAT (test code = 35 RATIO [...] code = 2219) 31 U/L COMPREHENSIVE METABOLIC [id number] 00:00:00 Test Item Value Reference Range Interpretation Comments GLUCOSE (test code = 2217) 106 MG/DL BUN (test code = 2208) 23 MG/DL CREATININE (test code = 2214) 0.66 MG/DL eGFR AMER. (test code 114 ML/MIN/1.73 = 85423) eGFR NON- AMER. (test 99 ML/MIN/1.73 code = 71354) CALC BUN/CREAT (test code = 35 RATIO [...] code = 2821) 0.335 UIU/ML COMPREHENSIVE METABOLIC [id number] 00:00:00 Test Item Value Reference Range Interpretation Comments GLUCOSE (test code = 2217) 106 MG/DL BUN (test code = 2208) 23 MG/DL CREATININE (test code = 2214) 0.66 MG/DL eGFR AMER. (test code 114 ML/MIN/1.73 = 66488) eGFR NON- AMER. (test 99 ML/MIN/1.73 code = 49755) CALC BUN/CREAT (test code = 35 RATIO [...] code = 2821) 0.335 UIU/ML COMPREHENSIVE METABOLIC [id number] 00:00:00 Test Item Value Reference Range Interpretation Comments GLUCOSE (test code = 2217) 106 MG/DL BUN (test code = 2208) 23 MG/DL CREATININE (test code = 2214) 0.66 MG/DL eGFR AMER. (test code 114 ML/MIN/1.73 = 95267) eGFR NON- AMER. (test 99 ML/MIN/1.73 code = 82467) CALC BUN/CREAT (test code = 35 RATIO [...] code = 2219) 31 U/L COMPREHENSIVE METABOLIC [id number] 00:00:00 Test Item Value Reference Range Interpretation Comments GLUCOSE (test code = 2217) 106 MG/DL BUN (test code = 2208) 23 MG/DL CREATININE (test code = 2214) 0.66 MG/DL eGFR AMER. (test code 114 ML/MIN/1.73 = 12960) eGFR NON- AMER. (test 99 ML/MIN/1.73 code = 25301) CALC BUN/CREAT (test code = 35 RATIO [...] code = 2821) 0.335 UIU/ML COMPREHENSIVE METABOLIC [id number] 00:00:00 Test Item Value Reference Range Interpretation Comments GLUCOSE (test code = 2217) 103 MG/DL BUN (test code = 2208) 15 MG/DL CREATININE (test code = 2214) 0.77 MG/DL eGFR AMER. (test code 101 ML/MIN/1.73 = 32244) eGFR NON- AMER. (test 87 ML/MIN/1.73 code = 42435) CALC BUN/CREAT (test code = 19 RATIO [...] code = 2219) 24 U/L COMPREHENSIVE METABOLIC [id number] 00:00:00 Test Item Value Reference Range Interpretation Comments GLUCOSE (test code = 2217) 103 MG/DL BUN (test code = 2208) 15 MG/DL CREATININE (test code = 2214) 0.77 MG/DL eGFR AMER. (test code 101 ML/MIN/1.73 = 69782) eGFR NON- AMER. (test 87 ML/MIN/1.73 code = 12801) CALC BUN/CREAT (test code = 19 RATIO [...] code = 2821) 0.424 UIU/ML COMPREHENSIVE METABOLIC [id number] 00:00:00 Test Item Value Reference Range Interpretation Comments GLUCOSE (test code = 2217) 103 MG/DL BUN (test code = 2208) 15 MG/DL CREATININE (test code = 2214) 0.77 MG/DL eGFR AMER. (test code 101 ML/MIN/1.73 = 14129) eGFR NON- AMER. (test 87 ML/MIN/1.73 code = 36733) CALC BUN/CREAT (test code = 19 RATIO [...] code = 2821) 0.424 UIU/ML COMPREHENSIVE METABOLIC [id number] 00:00:00 Test Item Value Reference Range Interpretation Comments GLUCOSE (test code = 2217) 103 MG/DL BUN (test code = 2208) 15 MG/DL CREATININE (test code = 2214) 0.77 MG/DL eGFR AMER. (test code 101 ML/MIN/1.73 = 65259) eGFR NON- AMER. (test 87 ML/MIN/1.73 code = 08975) CALC BUN/CREAT (test code = 19 RATIO [...] code = 2219) 24 U/L COMPREHENSIVE METABOLIC [id number] 00:00:00 Test Item Value Reference Range Interpretation Comments GLUCOSE (test code = 2217) 103 MG/DL BUN (test code = 2208) 15 MG/DL CREATININE (test code = 2214) 0.77 MG/DL eGFR AMER. (test code 101 ML/MIN/1.73 = 67436) eGFR NON- AMER. (test 87 ML/MIN/1.73 code = 68861) CALC BUN/CREAT (test code = 19 RATIO [...] T4 (THYROXINE) (test code = 3.9 UG/DL 9) CALCULATED T7 (FTI) (test code = 1.37 2820) TSH (test code = 2821) 0.424 UIU/ML CULTURE, [id number] 00:00:00 Test Item Value Reference Range Interpretation Comments CULTURE, URINE (test SPECIMEN NUMBER: code = 55950) [id number] CULTURE, [id number] 00:00:00 Test Item Value Reference Range Interpretation Comments CULTURE, URINE (test SPECIMEN NUMBER: code = 77827) [id number] CULTURE, [id number] 00:00:00 Test Item Value Reference Range Interpretation Comments CULTURE, URINE (test SPECIMEN NUMBER: code = 75051) [id number] CULTURE, [id number] 00:00:00 Test Item Value Reference Range Interpretation Comments CULTURE, URINE (test SPECIMEN NUMBER: code = 56247) [id number] CULTURE, [id number] 00:00:00 Test Item Value Reference Range Interpretation Comments CULTURE, URINE (test SPECIMEN NUMBER: code = 18731) [id number] CULTURE, [id number] 00:00:00 Test Item Value Reference Range Interpretation Comments CULTURE, URINE (test SPECIMEN NUMBER: code = 03545) [id number] CULTURE, [id number] 00:00:00 Test Item Value Reference Range Interpretation Comments CULTURE, URINE (test SPECIMEN NUMBER: code = 77076) [id number] CULTURE, [id number] 00:00:00 Test Item Value Reference Range Interpretation Comments CULTURE, URINE (test SPECIMEN NUMBER: code = 75243) [id number] CULTURE, [id number] 00:00:00 Test Item Value Reference Range Interpretation Comments CULTURE, URINE (test SPECIMEN NUMBER: code = 61745) [id number] CULTURE, [id number] 00:00:00 Test Item Value Reference Range Interpretation Comments CULTURE, URINE (test SPECIMEN NUMBER: code = 83612) [id number]
--- NOTE | 2022-01-12 14:55 | ER ---
Nurse's Notes [facility] Name: Jaimie Amanda Age: 61 yrs Sex: Female : 1960 Arrival Date: 01/12/2022 Time: 14:30 Bed External Waiting Private MD: Diagnosis: Presentation: 01/12 14:34 Chief complaint: N/V x 2 days. Seen in ED today for abdominal pain, not tolerating hb fluids or meds this afternoon. Coronavirus screen: At this time, the client does not indicate any symptoms associated with coronavirus-19. Ebola Screen: No symptoms or risks identified at this time. Risk Assessment: Do you want to hurt yourself or someone else? Patient reports no desire to harm self or others. Onset of symptoms was January 11, 2022. 14:34 Method Of Arrival: Ambulatory hb 14:34 Acuity: ZHEN 3 hb Historical: - Allergies: 14:36 No Known Allergies; hb - PMHx: 14:36 Alcoholism; Anxiety; Hypertensive disorder; Hypothyroidism; low NA; hb - PSHx: 14:36 Thyroidectomy; hb Vital Signs: 14:34 BP 176 / 87; Pulse 86; Resp 16; Temp 97; Pulse Ox 100% on R/A; Weight 74.84 kg; Height hb 5 ft. 7 in. (170.18 cm); Pain 8/10; 14:34 Body Mass Index 25.84 (74.84 kg, 170.18 cm) hb ED Course: 14:30 Patient arrived in ED. mr 14:36 Triage completed. hb 14:36 Arm band placed on. hb 14:38 Wilfrid Singh DO is Attending Physician. ms3 Administered Medications: No medications were administered Outcome: 14:54 Patient left the ED. hb Signatures: Radha Messina Heather RN RN hb Wilfrid Singh DO DO ms3
== END 2022-01-12 14:54 | disposition left against medical advice (07) ==
LOC: ER 14:27
DX: Z53.21 Procedure and treatment not carried out due to patient leaving prior to being seen by health care provider (principal)
CPT/HCPCS: 99281

== ENCOUNTER 2022-01-12 16:16 | Emergency (ER) | payer OTHER ==
--- OUTSIDE RECORDS SUMMARY | 2022-01-12 16:26 | XMS REPORT | Continuity of Care Document ---
:1960 Author Organization [facility] t Address [address] [place] [address] Care Team Providers Name Role Phone Jacinda George Primary Care Physician [phone] MATT SIMPSON Attending Clinician Unavailable MATT SIMPSON Attending Clinician Unavailable Doctor Unassigned, [place] Attending Clinician Unavailable WALLY KRISHNAMURTHY Attending Clinician Unavailable Natacha Brewster Attending Clinician Payers Payer Name Policy Type Policy Number Effective Date Expiration Date Sarina castelan [facility] [id number] 2017 00:00:00 PLUS Problems This patient has [...] rs to drug NITRO DRUG Active Other-Cmnt 2019-0 Univer s TRANSDER 5-21 ity of MAL 00:00: [place] [facility] ACETAMIN DRUG Active Other-Cmnt Univ ers OPHEN INGREDI 07-27 ity of 00:00: [place] [facility] Hmg-Coa Propensi Inactiv Reductas ty to e 05-06 e adverse 00:00: Inhibito reaction 00 rs to drug Nitrogly Propensi Active 2017-03 cerin ty to 03-16 adverse 00:00: reaction 00 to drug Medications Ordered Filled Start Stop Current Ordering Indication Dosage Frequency Signature Comments Components Source Medication Medication Date Date Medication? Clinician (SIG) Name Name ZOLPIDEM 2021-03 No TARTRATE 10 1-04 MG TABS 00:00: 00 ONDANSETRON 2021-03 No 4 4MG Tablets 03-12 00:00: 00 TAKE 1 2021- No TABLET BY -04 MOUTH DAILY 00:00: AT BEDTIME 00 TEMAZEPAM 2021-1 No 30 MG CAPS 03-12 00:00: 00 TAKE 1 2021-1 No TABLET BY -04 MOUTH EVERY 00:00: SIX HOURS 00 NEEDED [...] 00:00: TIMES DAILY 00 NEEDED TAKE 1 2021-0 No TABLET BY - MOUTH EVERY 00:00: 12 HOURS 00 FOR [...] 5 mcg 7-27 tablet 00:00: 00 ezetimibe 1-0 No 1mg [...] amlodipine 2018-0 No 1mg 5 mg tablet 6 00:00: 00 ondansetron 2018-0 No 1mg HCl [...] 125 mcg 2-09 tablet 00:00: 00 levothyroxi 1 No 1mcg ne 125 mcg 2-21 tablet 00:00: 00 levothyroxi 1 No 1mcg ne 125 mcg 2-21 tablet 00:00: 00 levothyroxi 1 No 1mcg ne 125 mcg 2-21 tablet 00:00: 00 hydrochloro 2016- No 1mg thiazide 25 2-20 mg tablet 00:00: 00 levothyroxi 2016-1 No 1mcg ne 150 mcg 2-20 tablet 00:00: 00 hydrochloro 2016-1 No 1mg thiazide 25 2-20 mg tablet 00:00: 00 levothyroxi 2016-1 No 1mcg ne 150 mcg 2-20 tablet 00:00: 00 hydrochloro 2016-1 No 1mg thiazide 25 2-20 mg tablet 00:00: 00 levothyroxi 1 No 1mcg ne 150 mcg 2-20 tablet 00:00: 00 paroxetine 2016-1 No 1mg 40 mg 1-15 tablet 00:00: 00 paroxetine 2016-1 No 1mg 40 mg 1-15 tablet 00:00: 00 risperidone 2017-1 No 1mg 1 mg tablet 1-15 00:00: 00 Trileptal 2016-1 No 1mg 600 mg 1-15 tablet 00:00: 00 mirtazapine 2016-1 No 1mg 30 mg 1-15 tablet 00:00: 00 paroxetine 2016-1 [...] 30 mg 5-30 tablet 00:00: 00 oxcarbazepi 2016-0 No 1mg ne 600 mg 5-30 tablet [...] Goal Plan of Care Note [code = 39357-3] Goal Plan of Care Note [code = 30175-8] Goal Plan of Care Note [code = 97867-3] Goal Plan of Care Note [code = 60405-3] Goal Plan of Care Note [code = 94094-0] Goal Plan of Care Note [code = 00359-0] Goal Plan of Care Note [code = 37762-6] Goal Plan of Care Note [code = 90256-7] Goal Plan of Care Note [code = 39405-1] Goal Plan of Care Note [code = 37824-2] Goal Plan of Care Note [code = 65266-4] Goal Plan of Care Note [code = 37693-8] Goal Plan of Care Note [code = 81187-9] Goal Plan of Care Note [code = 22531-7] Goal Plan of Care Note [code = 92680-5] Goal Plan of Care Note [code = 40709-1] Goal Plan of Care Note [code = 41949-4] Goal Plan of Care Note [code = 32413-8] Goal Plan of Care Note [code = 54184-0] Goal Plan of Care Note [code = 60001-1] Goal Plan of Care Note [code = 24609-3] Goal Plan of Care Note [code = 38117-8] Goal Plan of Care Note [code = 34921-2] Goal Plan of Care Note [code = 44837-8] Goal Plan of Care Note [code = 18958-4] Goal Plan of Care Note [code = 76451-2] Goal Plan of Care Note [code = 93595-7] Goal Plan of Care Note [code = 74770-6] Goal Plan of Care Note [code = 97314-9] Goal Plan of Care Note [code = 42866-5] Goal Plan of Care Note [code = 45679-0] Goal Plan of Care Note [code = 26200-5] Goal Plan of Care Note [code = 33554-8] Goal Plan of Care Note [code = 21286-9] Goal Plan of Care Note [code = 28914-7] Goal Plan of Care Note [code = 25280-3] Goal Plan of Care Note [code = 94989-7] Goal Plan of Care Note [code = 97134-9] Goal Plan of Care Note [code = 99785-7] Goal Plan of Care Note [code = 26700-7] Goal Plan of Care Note [code = 99771-7] Goal Plan of Care Note [code = 73452-0] Goal Plan of Care Note [code = 58664-9] Goal Plan of Care Note [code = 98173-0] Goal Plan of Care Note [code = 00385-6] Goal Plan of Care Note [code = 52367-4] Goal Plan of Care Note [code = 68312-9] Goal Plan of Care Note [code = 78776-9] Goal Plan of Care Note [code = 43053-9] Goal Plan of Care Note [code = 91972-5] Goal Plan of Care Note [code = 12365-8] Goal Plan of Care Note [code = 61764-3] Goal Plan of Care Note [code = 36087-8] Goal Plan of Care Note [code = 63541-4] Goal Plan of Care Note [code = 99546-0] Goal Plan of Care Note [code = 75604-6] Goal Plan of Care Note [code = 91318-1] Goal Plan of Care Note [code = 70388-1] Goal Plan of Care Note [code = 39452-2] Goal Plan of Care Note [code = 65272-9] Goal Plan of Care Note [code = 88326-1] Goal Plan of Care Note [code = 33069-0] Goal Plan of Care Note [code = 15407-1] Goal Plan of Care Note [code = 56285-1] Goal Plan of Care Note [code = 79264-9] Goal Plan of Care Note [code = 75187-7] Goal Plan of Care Note [code = 19719-7] Goal Plan of Care Note [code = 70064-8] Goal Plan of Care Note [code = 30226-8] Goal Plan of Care Note [code = 84798-9] Goal Plan of Care Note [code = 41740-8] Goal Plan of Care Note [code = 43750-2] Goal Plan of Care Note [code = 26349-4] Goal Plan of Care Note [code = 58444-4] Goal Plan of Care Note [code = 20036-7] Goal Plan of Care Note [code = 30467-2] Goal Plan of Care Note [code = 30741-2] Goal Plan of Care Note [code = 45596-4] Goal Plan of Care Note [code = 33272-7] Goal Plan of Care Note [code = 29783-9] Goal Plan of Care Note [code = 11541-2] Goal Plan of Care Note [code = 49135-7] Goal Plan of Care Note [code = 69692-5] Goal Plan of Care Note [code = 50021-8] Goal Plan of Care Note [code = 61491-4] Goal Plan of Care Note [code = 39502-6] Goal Plan of Care Note [code = 43036-5] Goal Plan of Care Note [code = 01899-1] Goal Plan of Care Note [code = 47959-2] Goal Plan of Care Note [code = 26966-9] Goal Plan of Care Note [code = 90518-2] Goal Plan of Care Note [code = 56708-0] Goal Plan of Care Note [code = 15615-4] Goal Plan of Care Note [code = 53669-2] Goal Plan of Care Note [code = 10072-3] Goal Plan of Care Note [code = 90898-7] Goal Plan of Care Note [code = 61924-6] Goal Plan of Care Note [code = 48746-0] Goal Plan of Care Note [code = 95743-1] Goal Plan of Care Note [code = 30121-1] Goal Plan of Care Note [code = 66665-2] Goal Plan of Care Note [code = 71893-6] Goal Plan of Care Note [code = 11003-5] Goal Plan of Care Note [code = 96961-0] Goal Plan of Care Note [code = 81142-6] Goal Plan of Care Note [code = 71319-5] Goal Plan of Care Note [code = 98155-1] Goal Plan of Care Note [code = 45862-4] Goal Plan of Care Note [code = 24109-7] Goal Plan of Care Note [code = 76201-0] Goal Plan of Care Note [code = 38760-7] Goal Plan of Care Note [code = 02171-9] Goal Plan of Care Note [code = 82803-3] Goal Plan of Care Note [code = 73293-7] Goal Plan of Care Note [code = 69603-1] Goal Plan of Care Note [code = 18784-9] Goal Plan of Care Note [code = 54420-1] Goal Plan of Care Note [code = 46085-4] Goal Plan of Care Note [code = 37113-0] Goal Plan of Care Note [code = 27776-1] Goal Plan of Care Note [code = 96558-2] Goal Plan of Care Note [code = 43217-7] Goal Plan of Care Note [code = 64293-1] Goal Plan of Care Note [code = 01015-3] Goal Plan of Care Note [code = 60979-6] Goal Plan of Care Note [code = 88114-8] Goal Plan of Care Note [code = 56224-0] Goal Plan of Care Note [code = 41688-3] Goal Plan of Care Note [code = 22214-2] Goal Plan of Care Note [code = 30545-7] Goal Plan of Care Note [code = 95685-1] Goal Plan of Care Note [code = 98726-6] Goal Plan of Care Note [code = 17841-1] Goal Plan of Care Note [code = 01665-0] Goal Plan of Care Note [code = 22788-6] Goal Plan of Care Note [code = 21122-7] Goal Plan of Care Note [code = 86134-9] Goal Plan of Care Note [code = 55691-6] Goal Plan of Care Note [code = 47726-5] Goal Plan of Care Note [code = 28566-5] Goal Plan of Care Note [code = 15671-2] Goal Plan of Care Note [code = 56314-1] Goal Plan of Care Note [code = 38368-6] Goal Plan of Care Note [code = 96212-9] Goal Plan of Care Note [code = 70606-2] Goal Plan of Care Note [code = 10048-1] Goal Plan of Care Note [code = 40049-6] Goal Plan of Care Note [code = 96814-0] Goal Plan of Care Note [code = 00457-4] Goal Plan of Care Note [code = 54562-5] Goal Plan of Care Note [code = 17294-8] Goal Plan of Care Note [code = 85803-0] Goal Plan of Care Note [code = 13551-2] Goal Plan of Care Note [code = 54366-1] Goal Plan of Care Note [code = 45547-5] Encounters Start End Encounter Admission Attending Care Care Encounter Source Date/Time Date/Time Type Type Clinicians Facility Department ID 2021-06-01 Outpatient [facility] [id number] [place] 01:36:29 [id number] [facility] 2022-01-10 2022-01-10 Outpatient [facility] [id number] Cristian 09:16:14 09:16:14 1104 F Jerman 2022-01-10 2022-01-10 Outpatient o3okdde7- [id number] f2 accaa6-a 00:00:00 00:00:00 Visit aca9-4c83 ca9-4c83-a -f3gt-pw4 7eb-bc13f3 0a0l195b3 f032f9 2021-12-19 2021-12-19 Outpatient [facility] [id number] 022 Cristian 16:11:31 16:11:31 1013 F Jerman 2021-12-19 2021-12-19 Outpatient [id number] 466cae-a 00:00:00 00:00:00 Visit n401-047i 770-441f-a -adae-62b amelia-62bace kjvxz86nj fd81af 2021-09-17 2021-09-17 Outpatient cdk5vrcy- [id number] aa b2kwiq-9 00:00:00 00:00:00 Visit 935a-4f50 35a-4f50-b -y30v-q7r 77d-c2ba85 [id number] 1264a6 2020-08-03 2020-08-03 Outpatient MATT VÁSQUEZ [facility] [id number] Univers 10:00:00 10:00:[address] [facility] 2020-07-25 2020-07-25 Orders Doctor FISH [id number] 00:00:00 00:00:00 Only Unassigned, BK 350.1.13.[address] [place] [facility] 4.2.7.2.686 [id number] 2019-09-26 2019-09-26 Outpatient Bertin KRISHNAMURTHY [facility] [id number] Univers 16:00:00 16:00:[address] [facility] 2018-10-21 2018-10-21 [facility] [id number] 00:00:00 00:00:00 Natacha Nguyen 350.1.13.10 [place] 4.2.7.2.686 [facility] [id number] [facility] 204 Building Results Test Description Test Time Test Comments Results Result Comments Source TSH, THIRD GENERATION 2021-06-27 05:15:49 Test Item Value Reference Range Interpretation Comme nts TSH, THIRD GENERATION (test code = 2821) 2.080 UIU/ML 0.400-4.100 HEMOGLOBIN [id number] 03:46:00 Test Item Value Reference Range Interpretation Comments HEMOGLOBIN A1c (test 6.6 % 4.2-5.6 H AMERIC AN DIABETES code = 09966) ASSOCIATION IDELINES FOR HGB A1C: PREDIABETES/INC REASED RISK . . . . . . . 5.7 -6.4% DIAGNOSIS OF DI ABETES . . . . . . . . . >=6 .5% WITH CONFIRMATION OR APPROPRIATE SYMPTOMS NOTE: ASSAY MAY BE AFFECTED BY HEMOGLOBINOPATH IES (SICKLE CELL ANEMIA, S- C DISEASE, OTHERS) OR CHIDI FICIALLY LOWERED BY DEC REASED RED CELL SURVIVAL ( HEMOLYTIC ANEMIAS, BLOOD LOSS, ETC.). CONSIDER ALTERN ATE TESTING OR LABORATORY C ONSULTATION. UNLESS OTHERWIS E INDICATED, ALL TESTING PER FORMED ATCLINICAL PATH [facility], [place] [address] LABORATORY DIRE CTOR: DIANA RUSS M.D. CLIA NUMBER [id number] [place]. [id number] LIPID [id number] 02:59:52 Test Item Value Reference Range Interpretation [...] , SEE CLIENT ANNOUNCE MENT AT [email or web address] RISK RATIO LDL/HDL 4.02 RATIO <3.22 H (test code = 2238) [id number] 00:00:00 Test Item Value Reference Range Interpretation Comments TSH, THIRD GENERATION (test code 2.080 UIU/ML = 2821) [id number] 00:00:00 Test Item Value Reference Range Interpretation Comments TSH, THIRD GENERATION (test code 2.080 UIU/ML = 2821) [id number] 00:00:00 Test Item Value Reference Range Interpretation Comments TSH, THIRD GENERATION (test code 2.080 UIU/ML = 2821) LIPID [id number] 00:00:00 Test Item Value Reference Range Interpretation Comments CHOLESTEROL (test code = 2210) 292 MG/DL TRIGLYCERIDES (test code = 2232) 184 MG/DL HDL CHOLESTEROL (test code = 2220) 51 MG/DL CALC LDL CHOL (test code = 2237) 205 MG/DL RISK RATIO LDL/HDL (test code = 4.02 RATIO 2238) LIPID [id number] 00:00:00 Test Item Value Reference Range Interpretation Comments CHOLESTEROL (test code = 2210) 292 MG/DL TRIGLYCERIDES (test code = 2232) 184 MG/DL HDL CHOLESTEROL (test code = 2220) 51 MG/DL CALC LDL CHOL (test code = 2237) 205 MG/DL RISK RATIO LDL/HDL (test code = 4.02 RATIO 2238) HEMOGLOBIN [id number] 00:00:00 Test Item Value Reference Range Interpretation Comments HEMOGLOBIN A1c (test code = 09150) 6.6 % HEMOGLOBIN [id number] 00:00:00 Test Item Value Reference Range Interpretation Comments HEMOGLOBIN A1c (test code = 67508) 6.6 % HEMOGLOBIN [id number] 00:00:00 Test Item Value Reference Range Interpretation Comments HEMOGLOBIN A1c (test code = 34730) 6.6 % [id number] 00:00:00 Test Item Value Reference Range Interpretation Comments TSH, THIRD GENERATION (test code 2.080 UIU/ML = 2821) [id number] 00:00:00 Test Item Value Reference Range Interpretation Comments TSH, THIRD GENERATION (test code 2.080 UIU/ML = 2821) LIPID [id number] 00:00:00 Test Item Value Reference Range Interpretation Comments CHOLESTEROL (test code = 2210) 292 MG/DL TRIGLYCERIDES (test code = 2232) 184 MG/DL HDL CHOLESTEROL (test code = 2220) 51 MG/DL CALC LDL CHOL (test code = 2237) 205 MG/DL RISK RATIO LDL/HDL (test code = 4.02 RATIO 2238) HEMOGLOBIN [id number] 00:00:00 Test Item Value Reference Range Interpretation Comments HEMOGLOBIN A1c (test code = 47870) 6.6 % HEMOGLOBIN [id number] 00:00:00 Test Item Value Reference Range Interpretation Comments HEMOGLOBIN A1c (test code = 27567) 6.6 % [id number] 00:00:00 Test Item Value Reference Range Interpretation Comments TSH, THIRD GENERATION (test code 2.080 UIU/ML = 2821) [id number] 00:00:00 Test Item Value Reference Range Interpretation Comments TSH, THIRD GENERATION (test code 2.080 UIU/ML = 2821) [id number] 00:00:00 Test Item Value Reference Range Interpretation Comments TSH, THIRD GENERATION (test code 2.080 UIU/ML = 2821) LIPID [id number] 00:00:00 Test Item Value Reference Range Interpretation Comments CHOLESTEROL (test code = 2210) 292 MG/DL TRIGLYCERIDES (test code = 2232) 184 MG/DL HDL CHOLESTEROL (test code = 2220) 51 MG/DL CALC LDL CHOL (test code = 2237) 205 MG/DL RISK RATIO LDL/HDL (test code = 4.02 RATIO 2238) LIPID [id number] 00:00:00 Test Item Value Reference Range Interpretation Comments CHOLESTEROL (test code = 2210) 292 MG/DL TRIGLYCERIDES (test code = 2232) 184 MG/DL HDL CHOLESTEROL (test code = 2220) 51 MG/DL CALC LDL CHOL (test code = 2237) 205 MG/DL RISK RATIO LDL/HDL (test code = 4.02 RATIO 2238) HEMOGLOBIN [id number] 00:00:00 Test Item Value Reference Range Interpretation Comments HEMOGLOBIN A1c (test code = 98729) 6.6 % HEMOGLOBIN [id number] 00:00:00 Test Item Value Reference Range Interpretation Comments HEMOGLOBIN A1c (test code = 22699) 6.6 % HEMOGLOBIN [id number] 00:00:00 Test Item Value Reference Range Interpretation Comments HEMOGLOBIN A1c (test code = 48138) 6.6 % HEMOGLOBIN [id number] 00:00:00 Test Item Value Reference Range Interpretation Comments HEMOGLOBIN A1c (test code = 79741) 6.8 % HEMOGLOBIN [id number] 00:00:00 Test Item Value Reference Range Interpretation Comments HEMOGLOBIN A1c (test code = 84146) 6.8 % HEMOGLOBIN [id number] 00:00:00 Test Item Value Reference Range Interpretation Comments HEMOGLOBIN A1c (test code = 37939) 6.8 % LIPID [id number] 00:00:00 Test Item Value Reference Range Interpretation Comments CHOLESTEROL (test code = 2210) 303 MG/DL TRIGLYCERIDES (test code = 2232) 191 MG/DL HDL CHOLESTEROL (test code = 2220) 61 MG/DL CALC LDL CHOL (test code = 2237) 205 MG/DL RISK RATIO LDL/HDL (test code = 3.36 RATIO 2238) LIPID [id number] 00:00:00 Test Item Value Reference Range Interpretation Comments CHOLESTEROL (test code = 2210) 303 MG/DL TRIGLYCERIDES (test code = 2232) 191 MG/DL HDL CHOLESTEROL (test code = 2220) 61 MG/DL CALC LDL CHOL (test code = 2237) 205 MG/DL RISK RATIO LDL/HDL (test code = 3.36 RATIO 2238) [id number] 00:00:00 Test Item Value Reference Range Interpretation Comments TSH, THIRD GENERATION (test code 0.769 UIU/ML = 2821) [id number] 00:00:00 Test Item Value Reference Range Interpretation Comments TSH, THIRD GENERATION (test code 0.769 UIU/ML = 2821) [id number] 00:00:00 Test Item Value Reference Range Interpretation Comments TSH, THIRD GENERATION (test code 0.769 UIU/ML = 2821) COMPREHENSIVE METABOLIC [id number] 00:00:00 Test Item Value Reference Range Interpretation Comments GLUCOSE (test code = 2217) 131 MG/DL BUN (test code = 2208) 13 MG/DL CREATININE (test code = 2214) 0.65 MG/DL eGFR AMER. (test code 113 ML/MIN/1.73 = 57446) eGFR NON- AMER. (test 97 ML/MIN/1.73 code = 71376) CALC BUN/CREAT (test code = 20 RATIO [...] code = 2219) 23 U/L COMPREHENSIVE METABOLIC [id number] 00:00:00 Test Item Value Reference Range Interpretation Comments GLUCOSE (test code = 2217) 131 MG/DL BUN (test code = 2208) 13 MG/DL CREATININE (test code = 2214) 0.65 MG/DL eGFR AMER. (test code 113 ML/MIN/1.73 = 20038) eGFR NON- AMER. (test 97 ML/MIN/1.73 code = 57175) CALC BUN/CREAT (test code = 20 RATIO [...] (test code = 2219) 23 U/L HEMOGLOBIN [id number] 00:00:00 Test Item Value Reference Range Interpretation Comments HEMOGLOBIN A1c (test code = 67972) 6.8 % HEMOGLOBIN [id number] 00:00:00 Test Item Value Reference Range Interpretation Comments HEMOGLOBIN A1c (test code = 55490) 6.8 % LIPID [id number] 00:00:00 Test Item Value Reference Range Interpretation Comments CHOLESTEROL (test code = 2210) 303 MG/DL TRIGLYCERIDES (test code = 2232) 191 MG/DL HDL CHOLESTEROL (test code = 2220) 61 MG/DL CALC LDL CHOL (test code = 2237) 205 MG/DL RISK RATIO LDL/HDL (test code = 3.36 RATIO 2238) [id number] 00:00:00 Test Item Value Reference Range Interpretation Comments TSH, THIRD GENERATION (test code 0.769 UIU/ML = 2821) [id number] 00:00:00 Test Item Value Reference Range Interpretation Comments TSH, THIRD GENERATION (test code 0.769 UIU/ML = 2821) COMPREHENSIVE METABOLIC [id number] 00:00:00 Test Item Value Reference Range Interpretation Comments GLUCOSE (test code = 2217) 131 MG/DL BUN (test code = 2208) 13 MG/DL CREATININE (test code = 2214) 0.65 MG/DL eGFR AMER. (test code 113 ML/MIN/1.73 = 61726) eGFR NON- AMER. (test 97 ML/MIN/1.73 code = 73179) CALC BUN/CREAT (test code = 20 RATIO [...] (test code = 2219) 23 U/L HEMOGLOBIN [id number] 00:00:00 Test Item Value Reference Range Interpretation Comments HEMOGLOBIN A1c (test code = 09286) 6.8 % HEMOGLOBIN [id number] 00:00:00 Test Item Value Reference Range Interpretation Comments HEMOGLOBIN A1c (test code = 95716) 6.8 % HEMOGLOBIN [id number] 00:00:00 Test Item Value Reference Range Interpretation Comments HEMOGLOBIN A1c (test code = 59979) 6.8 % LIPID [id number] 00:00:00 Test Item Value Reference Range Interpretation Comments CHOLESTEROL (test code = 2210) 303 MG/DL TRIGLYCERIDES (test code = 2232) 191 MG/DL HDL CHOLESTEROL (test code = 2220) 61 MG/DL CALC LDL CHOL (test code = 2237) 205 MG/DL RISK RATIO LDL/HDL (test code = 3.36 RATIO 2238) LIPID [id number] 00:00:00 Test Item Value Reference Range Interpretation Comments CHOLESTEROL (test code = 2210) 303 MG/DL TRIGLYCERIDES (test code = 2232) 191 MG/DL HDL CHOLESTEROL (test code = 2220) 61 MG/DL CALC LDL CHOL (test code = 2237) 205 MG/DL RISK RATIO LDL/HDL (test code = 3.36 RATIO 2238) [id number] 00:00:00 Test Item Value Reference Range Interpretation Comments TSH, THIRD GENERATION (test code 0.769 UIU/ML = 2821) [id number] 00:00:00 Test Item Value Reference Range Interpretation Comments TSH, THIRD GENERATION (test code 0.769 UIU/ML = 2821) [id number] 00:00:00 Test Item Value Reference Range Interpretation Comments TSH, THIRD GENERATION (test code 0.769 UIU/ML = 2821) COMPREHENSIVE METABOLIC [id number] 00:00:00 Test Item Value Reference Range Interpretation Comments GLUCOSE (test code = 2217) 131 MG/DL BUN (test code = 2208) 13 MG/DL CREATININE (test code = 2214) 0.65 MG/DL eGFR AMER. (test code 113 ML/MIN/1.73 = 81032) eGFR NON- AMER. (test 97 ML/MIN/1.73 code = 99601) CALC BUN/CREAT (test code = 20 RATIO [...] code = 2219) 23 U/L COMPREHENSIVE METABOLIC [id number] 00:00:00 Test Item Value Reference Range Interpretation Comments GLUCOSE (test code = 2217) 131 MG/DL BUN (test code = 2208) 13 MG/DL CREATININE (test code = 2214) 0.65 MG/DL eGFR AMER. (test code 113 ML/MIN/1.73 = 48608) eGFR NON- AMER. (test 97 ML/MIN/1.73 code = 10099) CALC BUN/CREAT (test code = 20 RATIO [...] (test code = 2219) 23 U/L HEMOGLOBIN [id number] 00:00:00 Test Item Value Reference Range Interpretation Comments HEMOGLOBIN A1c (test code = 66423) 6.6 % HEMOGLOBIN [id number] 00:00:00 Test Item Value Reference Range Interpretation Comments HEMOGLOBIN A1c (test code = 10255) 6.6 % HEMOGLOBIN [id number] 00:00:00 Test Item Value Reference Range Interpretation Comments HEMOGLOBIN A1c (test code = 12134) 6.6 % LIPID [id number] 00:00:00 Test Item Value Reference Range Interpretation Comments CHOLESTEROL (test code = 2210) 261 MG/DL TRIGLYCERIDES (test code = 2232) 159 MG/DL HDL CHOLESTEROL (test code = 2220) 82 MG/DL CALC LDL CHOL (test code = 2237) 150 MG/DL RISK RATIO LDL/HDL (test code = 1.83 RATIO 2238) LIPID [id number] 00:00:00 Test Item Value Reference Range Interpretation Comments CHOLESTEROL (test code = 2210) 261 MG/DL TRIGLYCERIDES (test code = 2232) 159 MG/DL HDL CHOLESTEROL (test code = 2220) 82 MG/DL CALC LDL CHOL (test code = 2237) 150 MG/DL RISK RATIO LDL/HDL (test code = 1.83 RATIO 2238) COMPREHENSIVE METABOLIC [id number] 00:00:00 Test Item Value Reference Range Interpretation Comments GLUCOSE (test code = 2217) 144 MG/DL BUN (test code = 2208) 15 MG/DL CREATININE (test code = 2214) 0.85 MG/DL eGFR AMER. (test code 87 ML/MIN/1.73 = 05992) eGFR NON- AMER. (test 75 ML/MIN/1.73 code = 16247) CALC BUN/CREAT (test code = 18 RATIO [...] code = 2219) 50 U/L COMPREHENSIVE METABOLIC [id number] 00:00:00 Test Item Value Reference Range Interpretation Comments GLUCOSE (test code = 2217) 144 MG/DL BUN (test code = 2208) 15 MG/DL CREATININE (test code = 2214) 0.85 MG/DL eGFR AMER. (test code 87 ML/MIN/1.73 = 24855) eGFR NON- AMER. (test 75 ML/MIN/1.73 code = 74336) CALC BUN/CREAT (test code = 18 RATIO [...] THYROX. BIND. CAPAC. (test code 1.1 = 37781) T4 (THYROXINE) (test code = 4.3 UG/DL 2819) CORRECTED T4 (FTI) (test code = 3.9 UG/DL 2820) TSH, THIRD GENERATION (test 18.900 UIU/ML code = 2821) THYROID II PROFILE (T3U, T4, T7, TSH)2020-05-23 00:00:00 Test Item Value Reference Range Interpretation Comments T-UPTAKE (test code = 2817) 30.2 % THYROX. BIND. CAPAC. (test code 1.1 = 87750) T4 (THYROXINE) (test code = 4.3 UG/DL 2819) CORRECTED T4 (FTI) (test code = 3.9 UG/DL 2820) TSH, THIRD GENERATION (test 18.900 UIU/ML code = 2821) HEMOGLOBIN [id number] 00:00:00 Test Item Value Reference Range Interpretation Comments HEMOGLOBIN A1c (test code = 36622) 6.6 % HEMOGLOBIN [id number] 00:00:00 Test Item Value Reference Range Interpretation Comments HEMOGLOBIN A1c (test code = 62391) 6.6 % LIPID [id number] 00:00:00 Test Item Value Reference Range Interpretation Comments CHOLESTEROL (test code = 2210) 261 MG/DL TRIGLYCERIDES (test code = 2232) 159 MG/DL HDL CHOLESTEROL (test code = 2220) 82 MG/DL CALC LDL CHOL (test code = 2237) 150 MG/DL RISK RATIO LDL/HDL (test code = 1.83 RATIO 2238) COMPREHENSIVE METABOLIC [id number] 00:00:00 Test Item Value Reference Range Interpretation Comments GLUCOSE (test code = 2217) 144 MG/DL BUN (test code = 2208) 15 MG/DL CREATININE (test code = 2214) 0.85 MG/DL eGFR AMER. (test code 87 ML/MIN/1.73 = 87330) eGFR NON- AMER. (test 75 ML/MIN/1.73 code = 76315) CALC BUN/CREAT (test code = 18 RATIO [...] THYROX. BIND. CAPAC. (test code 1.1 = 06736) T4 (THYROXINE) (test code = 4.3 UG/DL 2819) CORRECTED T4 (FTI) (test code = 3.9 UG/DL 2820) TSH, THIRD GENERATION (test 18.900 UIU/ML code = 2821) HEMOGLOBIN [id number] 00:00:00 Test Item Value Reference Range Interpretation Comments HEMOGLOBIN A1c (test code = 09530) 6.6 % HEMOGLOBIN [id number] 00:00:00 Test Item Value Reference Range Interpretation Comments HEMOGLOBIN A1c (test code = 16463) 6.6 % HEMOGLOBIN [id number] 00:00:00 Test Item Value Reference Range Interpretation Comments HEMOGLOBIN A1c (test code = 61613) 6.6 % LIPID [id number] 00:00:00 Test Item Value Reference Range Interpretation Comments CHOLESTEROL (test code = 2210) 261 MG/DL TRIGLYCERIDES (test code = 2232) 159 MG/DL HDL CHOLESTEROL (test code = 2220) 82 MG/DL CALC LDL CHOL (test code = 2237) 150 MG/DL RISK RATIO LDL/HDL (test code = 1.83 RATIO 2238) LIPID [id number] 00:00:00 Test Item Value Reference Range Interpretation Comments CHOLESTEROL (test code = 2210) 261 MG/DL TRIGLYCERIDES (test code = 2232) 159 MG/DL HDL CHOLESTEROL (test code = 2220) 82 MG/DL CALC LDL CHOL (test code = 2237) 150 MG/DL RISK RATIO LDL/HDL (test code = 1.83 RATIO 2238) COMPREHENSIVE METABOLIC [id number] 00:00:00 Test Item Value Reference Range Interpretation Comments GLUCOSE (test code = 2217) 144 MG/DL BUN (test code = 2208) 15 MG/DL CREATININE (test code = 2214) 0.85 MG/DL eGFR AMER. (test code 87 ML/MIN/1.73 = 83437) eGFR NON- AMER. (test 75 ML/MIN/1.73 code = 85904) CALC BUN/CREAT (test code = 18 RATIO [...] code = 2219) 50 U/L COMPREHENSIVE METABOLIC [id number] 00:00:00 Test Item Value Reference Range Interpretation Comments GLUCOSE (test code = 2217) 144 MG/DL BUN (test code = 2208) 15 MG/DL CREATININE (test code = 2214) 0.85 MG/DL eGFR AMER. (test code 87 ML/MIN/1.73 = 25297) eGFR NON- AMER. (test 75 ML/MIN/1.73 code = 20997) CALC BUN/CREAT (test code = 18 RATIO [...] THYROX. BIND. CAPAC. (test code 1.1 = 45173) T4 (THYROXINE) (test code = 4.3 UG/DL 2819) CORRECTED T4 (FTI) (test code = 3.9 UG/DL 2820) TSH, THIRD GENERATION (test 18.900 UIU/ML code = 2821) THYROID II PROFILE (T3U, T4, T7, TSH)[id number] 00:00:00 Test Item Value Reference Range Interpretation Comments T-UPTAKE (test code = 2817) 30.2 % THYROX. BIND. CAPAC. (test code 1.1 = 79104) T4 (THYROXINE) (test code = 4.3 UG/DL 2819) CORRECTED T4 (FTI) (test code = 3.9 UG/DL 2820) TSH, THIRD GENERATION (test 18.900 UIU/ML code = 2821) HEMOGLOBIN [id number] 00:00:00 Test Item Value Reference Range Interpretation Comments HEMOGLOBIN A1c (test code = 13852) 6.7 % HEMOGLOBIN [id number] 00:00:00 Test Item Value Reference Range Interpretation Comments HEMOGLOBIN A1c (test code = 72654) 6.7 % HEMOGLOBIN [id number] 00:00:00 Test Item Value Reference Range Interpretation Comments HEMOGLOBIN A1c (test code = 04538) 6.7 % LIPID [id number] 00:00:00 Test Item Value Reference Range Interpretation Comments CHOLESTEROL (test code = 2210) 267 MG/DL TRIGLYCERIDES (test code = 2232) 137 MG/DL HDL CHOLESTEROL (test code = 2220) 48 MG/DL CALC LDL CHOL (test code = 2237) 192 MG/DL RISK RATIO LDL/HDL (test code = 4.00 RATIO 2238) LIPID [id number] 00:00:00 Test Item Value Reference Range Interpretation Comments CHOLESTEROL (test code = 2210) 267 MG/DL TRIGLYCERIDES (test code = 2232) 137 MG/DL HDL CHOLESTEROL (test code = 2220) 48 MG/DL CALC LDL CHOL (test code = 2237) 192 MG/DL RISK RATIO LDL/HDL (test code = 4.00 RATIO 2238) COMPREHENSIVE METABOLIC [id number] 00:00:00 Test Item Value Reference Range Interpretation Comments GLUCOSE (test code = 2217) 155 MG/DL BUN (test code = 2208) 14 MG/DL CREATININE (test code = 2214) 0.52 MG/DL eGFR AMER. (test code 122 ML/MIN/1.73 = 20781) eGFR NON- AMER. (test 105 ML/MIN/1.73 code = 16731) CALC BUN/CREAT (test code = 27 RATIO [...] 224) CALC A/G RATIO (test code = 1.7 RATIO 2234) BILIRUBIN, TOTAL (test code = <0.2 MG/DL 2206) ALKALINE PHOSPHATASE (test 115 U/L code = 2204) AST (test code = 2218) 17 U/L ALT (test code = 2219) 27 U/L COMPREHENSIVE METABOLIC [id number] 00:00:00 Test Item Value Reference Range Interpretation Comments GLUCOSE (test code = 2217) 155 MG/DL BUN (test code = 2208) 14 MG/DL CREATININE (test code = 2214) 0.52 MG/DL eGFR AMER. (test code 122 ML/MIN/1.73 = 56571) eGFR NON- AMER. (test 105 ML/MIN/1.73 code = 06019) CALC BUN/CREAT (test code = 27 RATIO [...] THYROX. BIND. CAPAC. (test code 1.0 = 08822) T4 (THYROXINE) (test code = 4.7 UG/DL 2819) CORRECTED T4 (FTI) (test code = 4.7 UG/DL 2820) TSH, THIRD GENERATION (test code 0.201 UIU/ML = 2821) THYROID II PROFILE (T3U, T4, T7, TSH)2019 00:00:00 Test Item Value Reference Range Interpretation Comments T-UPTAKE (test code = 7) 33.1 % THYROX. BIND. CAPAC. (test code 1.0 = 74084) T4 (THYROXINE) (test code = 4.7 UG/DL 2819) CORRECTED T4 (FTI) (test code = 4.7 UG/DL 2820) TSH, THIRD GENERATION (test code 0.201 UIU/ML = 2821) HEMOGLOBIN [id number] 00:00:00 Test Item Value Reference Range Interpretation Comments HEMOGLOBIN A1c (test code = 71726) 6.7 % HEMOGLOBIN [id number] 00:00:00 Test Item Value Reference Range Interpretation Comments HEMOGLOBIN A1c (test code = 73954) 6.7 % LIPID [id number] 00:00:00 Test Item Value Reference Range Interpretation Comments CHOLESTEROL (test code = 2210) 267 MG/DL TRIGLYCERIDES (test code = 2232) 137 MG/DL HDL CHOLESTEROL (test code = 2220) 48 MG/DL CALC LDL CHOL (test code = 2237) 192 MG/DL RISK RATIO LDL/HDL (test code = 4.00 RATIO 2238) COMPREHENSIVE METABOLIC [id number] 00:00:00 Test Item Value Reference Range Interpretation Comments GLUCOSE (test code = 2217) 155 MG/DL BUN (test code = 2208) 14 MG/DL CREATININE (test code = 2214) 0.52 MG/DL eGFR AMER. (test code 122 ML/MIN/1.73 = 57499) eGFR NON- AMER. (test 105 ML/MIN/1.73 code = 45825) CALC BUN/CREAT (test code = 27 RATIO [...] THYROX. BIND. CAPAC. (test code 1.0 = 38815) T4 (THYROXINE) (test code = 4.7 UG/DL 2819) CORRECTED T4 (FTI) (test code = 4.7 UG/DL 2820) TSH, THIRD GENERATION (test code 0.201 UIU/ML = 2821) HEMOGLOBIN [id number] 00:00:00 Test Item Value Reference Range Interpretation Comments HEMOGLOBIN A1c (test code = 40534) 6.7 % HEMOGLOBIN [id number] 00:00:00 Test Item Value Reference Range Interpretation Comments HEMOGLOBIN A1c (test code = 21234) 6.7 % HEMOGLOBIN [id number] 00:00:00 Test Item Value Reference Range Interpretation Comments HEMOGLOBIN A1c (test code = 81942) 6.7 % LIPID [id number] 00:00:00 Test Item Value Reference Range Interpretation Comments CHOLESTEROL (test code = 2210) 267 MG/DL TRIGLYCERIDES (test code = 2232) 137 MG/DL HDL CHOLESTEROL (test code = 2220) 48 MG/DL CALC LDL CHOL (test code = 2237) 192 MG/DL RISK RATIO LDL/HDL (test code = 4.00 RATIO 2238) LIPID [id number] 00:00:00 Test Item Value Reference Range Interpretation Comments CHOLESTEROL (test code = 2210) 267 MG/DL TRIGLYCERIDES (test code = 2232) 137 MG/DL HDL CHOLESTEROL (test code = 2220) 48 MG/DL CALC LDL CHOL (test code = 2237) 192 MG/DL RISK RATIO LDL/HDL (test code = 4.00 RATIO 2238) COMPREHENSIVE METABOLIC [id number] 00:00:00 Test Item Value Reference Range Interpretation Comments GLUCOSE (test code = 2217) 155 MG/DL BUN (test code = 2208) 14 MG/DL CREATININE (test code = 2214) 0.52 MG/DL eGFR AMER. (test code 122 ML/MIN/1.73 = 85809) eGFR NON- AMER. (test 105 ML/MIN/1.73 code = 93540) CALC BUN/CREAT (test code = 27 RATIO [...] code = 2219) 27 U/L COMPREHENSIVE METABOLIC [id number] 00:00:00 Test Item Value Reference Range Interpretation Comments GLUCOSE (test code = 2217) 155 MG/DL BUN (test code = 2208) 14 MG/DL CREATININE (test code = 2214) 0.52 MG/DL eGFR AMER. (test code 122 ML/MIN/1.73 = 81347) eGFR NON- AMER. (test 105 ML/MIN/1.73 code = 95519) CALC BUN/CREAT (test code = 27 RATIO [...] ALKALINE PHOSPHATASE (test 115 U/L code = 2203) AST (test code = 2218) 17 U/L ALT (test code = 2219) 27 U/L THYROID II PROFILE (T3U, T4, T7, TSH)2019 00:00:00 Test Item Value Reference Range Interpretation Comments T-UPTAKE (test code = 2816) 33.1 % THYROX. BIND. CAPAC. (test code 1.0 = 98304) T4 (THYROXINE) (test code = 4.7 UG/DL 2819) CORRECTED T4 (FTI) (test code = 4.7 UG/DL 2820) TSH, THIRD GENERATION (test code 0.201 UIU/ML = 2821) THYROID II PROFILE (T3U, T4, T7, TSH)2019 00:00:00 Test Item Value Reference Range Interpretation Comments T-UPTAKE (test code = 2816) 33.1 % THYROX. BIND. CAPAC. (test code 1.0 = 95411) T4 (THYROXINE) (test code = 4.7 UG/DL 2819) CORRECTED T4 (FTI) (test code = 4.7 UG/DL 2820) TSH, THIRD GENERATION (test code 0.201 UIU/ML = 2821) SARS-CoV-2 (COVID-19) by RT-PCR (HIGH RISK)2019-09-18 00:00:00 Test Item Value Reference Range Interpretation Comments SARS-CoV-2 INTERPRETATION (test NEGATIVE code = 86947) SOURCE (test code = 72905) NOT SPECIFIED SARS-CoV-2 (COVID-19) by RT-PCR (HIGH RISK)2019-09-18 00:00:00 Test Item Value Reference Range Interpretation Comments SARS-CoV-2 INTERPRETATION (test NEGATIVE code = 39584) SOURCE (test code = 35717) NOT SPECIFIED SARS-CoV-2 (COVID-19) by RT-PCR (HIGH RISK)2019-09-18 00:00:00 Test Item Value Reference Range Interpretation Comments SARS-CoV-2 INTERPRETATION (test NEGATIVE code = 80746) SOURCE (test code = 52481) NOT SPECIFIED SARS-CoV-2 (COVID-19) by RT-PCR (HIGH RISK)2019-09-18 00:00:00 Test Item Value Reference Range Interpretation Comments SARS-CoV-2 INTERPRETATION (test NEGATIVE code = 81139) SOURCE (test code = 63771) NOT SPECIFIED SARS-CoV-2 (COVID-19) by RT-PCR (HIGH RISK)2019-09-18 00:00:00 Test Item Value Reference Range Interpretation Comments SARS-CoV-2 INTERPRETATION (test NEGATIVE code = 70799) SOURCE (test code = 08511) NOT SPECIFIED [id number] 00:00:00 Test Item Value Reference Range Interpretation Comments TSH, THIRD GENERATION (test code 2.490 UIU/ML = 2821) [id number] 00:00:00 Test Item Value Reference Range Interpretation Comments TSH, THIRD GENERATION (test code 2.490 UIU/ML = 2821) [id number] 00:00:00 Test Item Value Reference Range Interpretation Comments TSH, THIRD GENERATION (test code 2.490 UIU/ML = 2821) HEMOGLOBIN [id number] 00:00:00 Test Item Value Reference Range Interpretation Comments HEMOGLOBIN A1c (test code = 19372) 6.4 % HEMOGLOBIN [id number] 00:00:00 Test Item Value Reference Range Interpretation Comments HEMOGLOBIN A1c (test code = 72952) 6.4 % HEMOGLOBIN [id number] 00:00:00 Test Item Value Reference Range Interpretation Comments HEMOGLOBIN A1c (test code = 34081) 6.4 % COMPREHENSIVE METABOLIC [id number] 00:00:00 Test Item Value Reference Range Interpretation Comments GLUCOSE (test code = 2217) 206 MG/DL BUN (test code = 2208) 23 MG/DL CREATININE (test code = 2214) 0.67 MG/DL eGFR AMER. (test code 112 ML/MIN/1.73 = 69771) eGFR NON- AMER. (test 97 ML/MIN/1.73 code = 21389) CALC BUN/CREAT (test code = 34 RATIO [...] code = 2219) 25 U/L COMPREHENSIVE METABOLIC [id number] 00:00:00 Test Item Value Reference Range Interpretation Comments GLUCOSE (test code = 2217) 206 MG/DL BUN (test code = 2208) 23 MG/DL CREATININE (test code = 2214) 0.67 MG/DL eGFR AMER. (test code 112 ML/MIN/1.73 = 25921) eGFR NON- AMER. (test 97 ML/MIN/1.73 code = 57990) CALC BUN/CREAT (test code = 34 RATIO [...] ALT (test code = 2219) 25 U/L [id number] 00:00:00 Test Item Value Reference Range Interpretation Comments TSH, THIRD GENERATION (test code 2.490 UIU/ML = 2821) [id number] 00:00:00 Test Item Value Reference Range Interpretation Comments TSH, THIRD GENERATION (test code 2.490 UIU/ML = 2821) HEMOGLOBIN [id number] 00:00:00 Test Item Value Reference Range Interpretation Comments HEMOGLOBIN A1c (test code = 89586) 6.4 % HEMOGLOBIN [id number] 00:00:00 Test Item Value Reference Range Interpretation Comments HEMOGLOBIN A1c (test code = 51106) 6.4 % COMPREHENSIVE METABOLIC [id number] 00:00:00 Test Item Value Reference Range Interpretation Comments GLUCOSE (test code = 2217) 206 MG/DL BUN (test code = 2208) 23 MG/DL CREATININE (test code = 2214) 0.67 MG/DL eGFR AMER. (test code 112 ML/MIN/1.73 = 54633) eGFR NON- AMER. (test 97 ML/MIN/1.73 code = 15087) CALC BUN/CREAT (test code = 34 RATIO [...] ALT (test code = 2219) 25 U/L [id number] 00:00:00 Test Item Value Reference Range Interpretation Comments TSH, THIRD GENERATION (test code 2.490 UIU/ML = 2821) [id number] 00:00:00 Test Item Value Reference Range Interpretation Comments TSH, THIRD GENERATION (test code 2.490 UIU/ML = 2821) [id number] 00:00:00 Test Item Value Reference Range Interpretation Comments TSH, THIRD GENERATION (test code 2.490 UIU/ML = 2821) HEMOGLOBIN [id number] 00:00:00 Test Item Value Reference Range Interpretation Comments HEMOGLOBIN A1c (test code = 52478) 6.4 % HEMOGLOBIN [id number] 00:00:00 Test Item Value Reference Range Interpretation Comments HEMOGLOBIN A1c (test code = 87150) 6.4 % HEMOGLOBIN [id number] 00:00:00 Test Item Value Reference Range Interpretation Comments HEMOGLOBIN A1c (test code = 96148) 6.4 % COMPREHENSIVE METABOLIC [id number] 00:00:00 Test Item Value Reference Range Interpretation Comments GLUCOSE (test code = 2217) 206 MG/DL BUN (test code = 2208) 23 MG/DL CREATININE (test code = 2214) 0.67 MG/DL eGFR AMER. (test code 112 ML/MIN/1.73 = 02821) eGFR NON- AMER. (test 97 ML/MIN/1.73 code = 51532) CALC BUN/CREAT (test code = 34 RATIO [...] A/G RATIO (test code = 2.1 RATIO 223) BILIRUBIN, TOTAL (test code = <0.2 MG/DL 2207) ALKALINE PHOSPHATASE (test 105 U/L code = 2204) AST (test code = 2218) 17 U/L ALT (test code = 2219) 25 U/L COMPREHENSIVE METABOLIC [id number] 00:00:00 Test Item Value Reference Range Interpretation Comments GLUCOSE (test code = 2217) 206 MG/DL BUN (test code = 2208) 23 MG/DL CREATININE (test code = 2214) 0.67 MG/DL eGFR AMER. (test code 112 ML/MIN/1.73 = 81344) eGFR NON- AMER. (test 97 ML/MIN/1.73 code = 74517) CALC BUN/CREAT (test code = 34 RATIO [...] = 2219) 25 U/L VAGINAL PATHOGENS DNA [id number] 00:00:00 Test Item Value Reference Range Interpretation Comments MARK SPECIES (test code = 62379) NEGATIVE G. VAGINALIS (test code = 74180) NEGATIVE T. VAGINALIS (test code = 23936) NEGATIVE VAGINAL PATHOGENS DNA [id number] 00:00:00 Test Item Value Reference Range Interpretation Comments MARK SPECIES (test code = 30282) NEGATIVE G. VAGINALIS (test code = 13537) NEGATIVE T. VAGINALIS (test code = 01761) NEGATIVE VAGINAL PATHOGENS DNA [id number] 00:00:00 Test Item Value Reference Range Interpretation Comments MARK SPECIES (test code = 15527) NEGATIVE G. VAGINALIS (test code = 29084) NEGATIVE T. VAGINALIS (test code = 10192) NEGATIVE VAGINAL PATHOGENS DNA [id number] 00:00:00 Test Item Value Reference Range Interpretation Comments MARK SPECIES (test code = ) NEGATIVE G. VAGINALIS (test code = 88813) NEGATIVE T. VAGINALIS (test code = 57280) NEGATIVE VAGINAL PATHOGENS DNA [id number] 00:00:00 Test Item Value Reference Range Interpretation Comments MARK SPECIES (test code = ) NEGATIVE G. VAGINALIS (test code = 42761) NEGATIVE T. VAGINALIS (test code = 42827) NEGATIVE HEMOGLOBIN A1c [ADDED]2018-12-01 00:00:00 Test Item Value Reference Range Interpretation Comments HEMOGLOBIN A1c (test code = 70426) 6.7 % HEMOGLOBIN A1c [ADDED]2018-12-01 00:00:00 Test Item Value Reference Range Interpretation Comments HEMOGLOBIN A1c (test code = 03174) 6.7 % HEMOGLOBIN A1c [ADDED]2018-12-01 00:00:00 Test Item Value Reference Range Interpretation Comments HEMOGLOBIN A1c (test code = 69759) 6.7 % COMPREHENSIVE METABOLIC PANEL [ADDED]2018-12-01 00:00:00 Test Item Value Reference Range Interpretation Comments GLUCOSE (test code = 2217) 136 MG/DL BUN (test code = 2208) 15 MG/DL CREATININE (test code = 2214) 0.64 MG/DL eGFR AMER. (test code 115 ML/MIN/1.73 = 88348) eGFR NON- AMER. (test 99 ML/MIN/1.73 code = 99316) CALC BUN/CREAT (test code = 23 RATIO [...] eGFR AMER. (test code 115 ML/MIN/1.73 = 99203) eGFR NON- AMER. (test 99 ML/MIN/1.73 code = 85296) CALC BUN/CREAT (test code = 23 RATIO [...] Interpretation Comments HEMOGLOBIN A1c (test code = 73015) 6.7 % HEMOGLOBIN A1c [ADDED]2018-12-01 00:00:00 Test Item Value Reference Range Interpretation Comments HEMOGLOBIN A1c (test code = 02800) 6.7 % COMPREHENSIVE METABOLIC PANEL [ADDED]2018-12-01 00:00:00 Test Item Value Reference Range Interpretation Comments GLUCOSE (test code = 2217) 136 MG/DL BUN (test code = 2208) 15 MG/DL CREATININE (test code = 2214) 0.64 MG/DL eGFR AMER. (test code 115 ML/MIN/1.73 = 54193) eGFR NON- AMER. (test 99 ML/MIN/1.73 code = 70140) CALC BUN/CREAT (test code = 23 RATIO [...] Interpretation Comments HEMOGLOBIN A1c (test code = 74169) 6.7 % HEMOGLOBIN A1c [ADDED]2018-12-01 00:00:00 Test Item Value Reference Range Interpretation Comments HEMOGLOBIN A1c (test code = 80039) 6.7 % HEMOGLOBIN A1c [ADDED]2018-12-01 00:00:00 Test Item Value Reference Range Interpretation Comments HEMOGLOBIN A1c (test code = 82275) 6.7 % COMPREHENSIVE METABOLIC PANEL [ADDED]2018-12-01 00:00:00 Test Item Value Reference Range Interpretation Comments GLUCOSE (test code = 2217) 136 MG/DL BUN (test code = 2208) 15 MG/DL CREATININE (test code = 2214) 0.64 MG/DL eGFR AMER. (test code 115 ML/MIN/1.73 = 32833) eGFR NON- AMER. (test 99 ML/MIN/1.73 code = 45628) CALC BUN/CREAT (test code = 23 RATIO [...] eGFR AMER. (test code 115 ML/MIN/1.73 = 36244) eGFR NON- AMER. (test 99 ML/MIN/1.73 code = 41807) CALC BUN/CREAT (test code = 23 RATIO [...] code 1.280 UIU/ML = 2821) CBC W/AUTO [id number] 00:00:00 Test Item Value Reference Range Interpretation [...] code = 1015) 346 K/UL CBC W/AUTO [id number] 00:00:00 Test Item Value Reference Range Interpretation [...] code = 1015) 346 K/UL CBC W/AUTO [id number] 00:00:00 Test Item Value Reference Range Interpretation [...] (test code = 1015) 346 K/UL HEMOGLOBIN [id number] 00:00:00 Test Item Value Reference Range Interpretation Comments HEMOGLOBIN A1c (test code = 34757) 5.9 % HEMOGLOBIN [id number] 00:00:00 Test Item Value Reference Range Interpretation Comments HEMOGLOBIN A1c (test code = 77654) 5.9 % HEMOGLOBIN [id number] 00:00:00 Test Item Value Reference Range Interpretation Comments HEMOGLOBIN A1c (test code = 02272) 5.9 % LIPID [id number] 00:00:00 Test Item Value Reference Range Interpretation Comments CHOLESTEROL (test code = 2210) 318 MG/DL TRIGLYCERIDES (test code = 2232) 263 MG/DL HDL CHOLESTEROL (test code = 2220) 51 MG/DL CALC LDL CHOL (test code = 2237) 214 MG/DL RISK RATIO LDL/HDL (test code = 4.20 RATIO 2238) LIPID [id number] 00:00:00 Test Item Value Reference Range Interpretation Comments CHOLESTEROL (test code = 2210) 318 MG/DL TRIGLYCERIDES (test code = 2232) 263 MG/DL HDL CHOLESTEROL (test code = 2220) 51 MG/DL CALC LDL CHOL (test code = 2237) 214 MG/DL RISK RATIO LDL/HDL (test code = 4.20 RATIO 2238) COMPREHENSIVE METABOLIC [id number] 00:00:00 Test Item Value Reference Range Interpretation Comments GLUCOSE (test code = 2217) 113 MG/DL BUN (test code = 2208) 18 MG/DL CREATININE (test code = 2214) 0.70 MG/DL eGFR AMER. (test code 111 ML/MIN/1.73 = 51897) eGFR NON- AMER. (test 96 ML/MIN/1.73 code = 91453) CALC BUN/CREAT (test code = 26 RATIO [...] code = 2219) 31 U/L COMPREHENSIVE METABOLIC [id number] 00:00:00 Test Item Value Reference Range Interpretation Comments GLUCOSE (test code = 2217) 113 MG/DL BUN (test code = 2208) 18 MG/DL CREATININE (test code = 2214) 0.70 MG/DL eGFR AMER. (test code 111 ML/MIN/1.73 = 06691) eGFR NON- AMER. (test 96 ML/MIN/1.73 code = 30818) CALC BUN/CREAT (test code = 26 RATIO [...] ALKALINE PHOSPHATASE (test 80 U/L code = 2203) AST (test code = 2218) 21 U/L ALT (test code = 2219) 31 U/L [id number] 00:00:00 Test Item Value Reference Range Interpretation Comments TSH, THIRD GENERATION (test code 2.520 UIU/ML = 2821) [id number] 00:00:00 Test Item Value Reference Range Interpretation Comments TSH, THIRD GENERATION (test code 2.520 UIU/ML = 2821) [id number] 00:00:00 Test Item Value Reference Range Interpretation Comments TSH, THIRD GENERATION (test code 2.520 UIU/ML = 2821) CBC W/AUTO [id number] 00:00:00 Test Item Value Reference Range Interpretation [...] code = 1015) 346 K/UL CBC W/AUTO [id number] 00:00:00 Test Item Value Reference Range Interpretation [...] (test code = 1015) 346 K/UL HEMOGLOBIN [id number] 00:00:00 Test Item Value Reference Range Interpretation Comments HEMOGLOBIN A1c (test code = 23844) 5.9 % HEMOGLOBIN [id number] 00:00:00 Test Item Value Reference Range Interpretation Comments HEMOGLOBIN A1c (test code = 03243) 5.9 % LIPID [id number] 00:00:00 Test Item Value Reference Range Interpretation Comments CHOLESTEROL (test code = 2210) 318 MG/DL TRIGLYCERIDES (test code = 2232) 263 MG/DL HDL CHOLESTEROL (test code = 2220) 51 MG/DL CALC LDL CHOL (test code = 2237) 214 MG/DL RISK RATIO LDL/HDL (test code = 4.20 RATIO 2238) COMPREHENSIVE METABOLIC [id number] 00:00:00 Test Item Value Reference Range Interpretation Comments GLUCOSE (test code = 2217) 113 MG/DL BUN (test code = 2208) 18 MG/DL CREATININE (test code = 2214) 0.70 MG/DL eGFR AMER. (test code 111 ML/MIN/1.73 = 09246) eGFR NON- AMER. (test 96 ML/MIN/1.73 code = 41899) CALC BUN/CREAT (test code = 26 RATIO [...] ALT (test code = 2219) 31 U/L [id number] 00:00:00 Test Item Value Reference Range Interpretation Comments TSH, THIRD GENERATION (test code 2.520 UIU/ML = 2821) [id number] 00:00:00 Test Item Value Reference Range Interpretation Comments TSH, THIRD GENERATION (test code 2.520 UIU/ML = 2821) CBC W/AUTO [id number] 00:00:00 Test Item Value Reference Range Interpretation [...] code = 1015) 346 K/UL CBC W/AUTO [id number] 00:00:00 Test Item Value Reference Range Interpretation [...] code = 1015) 346 K/UL CBC W/AUTO [id number] 00:00:00 Test Item Value Reference Range Interpretation [...] (test code = 1015) 346 K/UL HEMOGLOBIN [id number] 00:00:00 Test Item Value Reference Range Interpretation Comments HEMOGLOBIN A1c (test code = 35306) 5.9 % HEMOGLOBIN [id number] 00:00:00 Test Item Value Reference Range Interpretation Comments HEMOGLOBIN A1c (test code = 72720) 5.9 % HEMOGLOBIN [id number] 00:00:00 Test Item Value Reference Range Interpretation Comments HEMOGLOBIN A1c (test code = 69268) 5.9 % LIPID [id number] 00:00:00 Test Item Value Reference Range Interpretation Comments CHOLESTEROL (test code = 2210) 318 MG/DL TRIGLYCERIDES (test code = 2232) 263 MG/DL HDL CHOLESTEROL (test code = 2220) 51 MG/DL CALC LDL CHOL (test code = 2237) 214 MG/DL RISK RATIO LDL/HDL (test code = 4.20 RATIO 2238) LIPID [id number] 00:00:00 Test Item Value Reference Range Interpretation Comments CHOLESTEROL (test code = 2210) 318 MG/DL TRIGLYCERIDES (test code = 2232) 263 MG/DL HDL CHOLESTEROL (test code = 2220) 51 MG/DL CALC LDL CHOL (test code = 2237) 214 MG/DL RISK RATIO LDL/HDL (test code = 4.20 RATIO 2238) COMPREHENSIVE METABOLIC [id number] 00:00:00 Test Item Value Reference Range Interpretation Comments GLUCOSE (test code = 2217) 113 MG/DL BUN (test code = 2208) 18 MG/DL CREATININE (test code = 2214) 0.70 MG/DL eGFR AMER. (test code 111 ML/MIN/1.73 = 41256) eGFR NON- AMER. (test 96 ML/MIN/1.73 code = 97494) CALC BUN/CREAT (test code = 26 RATIO [...] code = 2219) 31 U/L COMPREHENSIVE METABOLIC [id number] 00:00:00 Test Item Value Reference Range Interpretation Comments GLUCOSE (test code = 2217) 113 MG/DL BUN (test code = 2208) 18 MG/DL CREATININE (test code = 2214) 0.70 MG/DL eGFR AMER. (test code 111 ML/MIN/1.73 = 80831) eGFR NON- AMER. (test 96 ML/MIN/1.73 code = 86537) CALC BUN/CREAT (test code = 26 RATIO [...] ALT (test code = 2219) 31 U/L [id number] 00:00:00 Test Item Value Reference Range Interpretation Comments TSH, THIRD GENERATION (test code 2.520 UIU/ML = 2821) [id number] 00:00:00 Test Item Value Reference Range Interpretation Comments TSH, THIRD GENERATION (test code 2.520 UIU/ML = 2821) [id number] 00:00:00 Test Item Value Reference Range Interpretation Comments TSH, THIRD GENERATION (test code 2.520 UIU/ML = 2821) CULTURE, [id number] 00:00:00 Test Item Value Reference Range Interpretation Comments CULTURE, URINE (test SPECIMEN NUMBER: code = 08707) [id number] CULTURE, [id number] 00:00:00 Test Item Value Reference Range Interpretation Comments CULTURE, URINE (test SPECIMEN NUMBER: code = 11106) [id number] CULTURE, [id number] 00:00:00 Test Item Value Reference Range Interpretation Comments CULTURE, URINE (test SPECIMEN NUMBER: code = 42730) [id number] CULTURE, [id number] 00:00:00 Test Item Value Reference Range Interpretation Comments CULTURE, URINE (test SPECIMEN NUMBER: code = 34641) [id number] CULTURE, [id number] 00:00:00 Test Item Value Reference Range Interpretation Comments CULTURE, URINE (test SPECIMEN NUMBER: code = 80142) [id number] CULTURE, [id number] 00:00:00 Test Item Value Reference Range Interpretation Comments CULTURE, URINE (test SPECIMEN NUMBER: code = 28442) [id number] CULTURE, [id number] 00:00:00 Test Item Value Reference Range Interpretation Comments CULTURE, URINE (test SPECIMEN NUMBER: code = 09565) [id number] CULTURE, [id number] 00:00:00 Test Item Value Reference Range Interpretation Comments CULTURE, URINE (test SPECIMEN NUMBER: code = 56936) [id number] CULTURE, [id number] 00:00:00 Test Item Value Reference Range Interpretation Comments CULTURE, URINE (test SPECIMEN NUMBER: code = 00917) [id number] CULTURE, [id number] 00:00:00 Test Item Value Reference Range Interpretation Comments CULTURE, URINE (test SPECIMEN NUMBER: code = 59395) [id number] BASIC METABOLIC [id number] 00:00:00 Test Item Value Reference Range Interpretation Comments GLUCOSE (test code = 2217) 135 MG/DL BUN (test code = 2208) 25 MG/DL CREATININE (test code = 2214) 0.76 MG/DL eGFR AMER. (test code 101 ML/MIN/1.73 = 31776) eGFR NON- AMER. (test 87 ML/MIN/1.73 code = 90807) SODIUM (test code = 2231) 139 MEQ/L POTASSIUM (test code = 2228) 4.7 MEQ/L CHLORIDE (test code = 2215) 99 MEQ/L CARBON DIOXIDE (test code = 26 MEQ/L 2206) CALCIUM (test code = 2209) 9.4 MG/DL BASIC METABOLIC [id number] 00:00:00 Test Item Value Reference Range Interpretation Comments GLUCOSE (test code = 2217) 135 MG/DL BUN (test code = 2208) 25 MG/DL CREATININE (test code = 2214) 0.76 MG/DL eGFR AMER. (test code 101 ML/MIN/1.73 = 68106) eGFR NON- AMER. (test 87 ML/MIN/1.73 code = 87190) SODIUM (test code = 2231) 139 MEQ/L POTASSIUM (test code = 2228) 4.7 MEQ/L CHLORIDE (test code = 2215) 99 MEQ/L CARBON DIOXIDE (test code = 26 MEQ/L 2206) CALCIUM (test code = 2209) 9.4 MG/DL LIPID [id number] 00:00:00 Test Item Value Reference Range Interpretation Comments CHOLESTEROL (test code = 2210) 262 MG/DL TRIGLYCERIDES (test code = 2232) 300 MG/DL HDL CHOLESTEROL (test code = 2220) 36 MG/DL CALC LDL CHOL (test code = 2237) 166 MG/DL RISK RATIO LDL/HDL (test code = 4.61 RATIO 2238) LIPID [id number] 00:00:00 Test Item Value Reference Range Interpretation Comments CHOLESTEROL (test code = 2210) 262 MG/DL TRIGLYCERIDES (test code = 2232) 300 MG/DL HDL CHOLESTEROL (test code = 2220) 36 MG/DL CALC LDL CHOL (test code = 2237) 166 MG/DL RISK RATIO LDL/HDL (test code = 4.61 RATIO 2238) HEMOGLOBIN [id number] 00:00:00 Test Item Value Reference Range Interpretation Comments HEMOGLOBIN A1c (test code = 84533) 6.2 % HEMOGLOBIN [id number] 00:00:00 Test Item Value Reference Range Interpretation Comments HEMOGLOBIN A1c (test code = 30063) 6.2 % HEMOGLOBIN [id number] 00:00:00 Test Item Value Reference Range Interpretation Comments HEMOGLOBIN A1c (test code = 48526) 6.2 % [id number] 00:00:00 Test Item Value Reference Range Interpretation Comments TSH, THIRD GENERATION (test code 0.988 UIU/ML = 2821) [id number] 00:00:00 Test Item Value Reference Range Interpretation Comments TSH, THIRD GENERATION (test code 0.988 UIU/ML = 2821) [id number] 00:00:00 Test Item Value Reference Range Interpretation Comments TSH, THIRD GENERATION (test code 0.988 UIU/ML = 2821) BASIC METABOLIC [id number] 00:00:00 Test Item Value Reference Range Interpretation Comments GLUCOSE (test code = 2217) 135 MG/DL BUN (test code = 2208) 25 MG/DL CREATININE (test code = 2214) 0.76 MG/DL eGFR AMER. (test code 101 ML/MIN/1.73 = 71290) eGFR NON- AMER. (test 87 ML/MIN/1.73 code = 94314) SODIUM (test code = 2231) 139 MEQ/L POTASSIUM (test code = 2228) 4.7 MEQ/L CHLORIDE (test code = 2215) 99 MEQ/L CARBON DIOXIDE (test code = 26 MEQ/L 2206) CALCIUM (test code = 2209) 9.4 MG/DL LIPID [id number] 00:00:00 Test Item Value Reference Range Interpretation Comments CHOLESTEROL (test code = 2210) 262 MG/DL TRIGLYCERIDES (test code = 2232) 300 MG/DL HDL CHOLESTEROL (test code = 2220) 36 MG/DL CALC LDL CHOL (test code = 2237) 166 MG/DL RISK RATIO LDL/HDL (test code = 4.61 RATIO 2238) HEMOGLOBIN [id number] 00:00:00 Test Item Value Reference Range Interpretation Comments HEMOGLOBIN A1c (test code = 64054) 6.2 % HEMOGLOBIN [id number] 00:00:00 Test Item Value Reference Range Interpretation Comments HEMOGLOBIN A1c (test code = 36808) 6.2 % [id number] 00:00:00 Test Item Value Reference Range Interpretation Comments TSH, THIRD GENERATION (test code 0.988 UIU/ML = 2821) [id number] 00:00:00 Test Item Value Reference Range Interpretation Comments TSH, THIRD GENERATION (test code 0.988 UIU/ML = 2821) BASIC METABOLIC [id number] 00:00:00 Test Item Value Reference Range Interpretation Comments GLUCOSE (test code = 2217) 135 MG/DL BUN (test code = 2208) 25 MG/DL CREATININE (test code = 2214) 0.76 MG/DL eGFR AMER. (test code 101 ML/MIN/1.73 = 87471) eGFR NON- AMER. (test 87 ML/MIN/1.73 code = 98937) SODIUM (test code = 2231) 139 MEQ/L POTASSIUM (test code = 2228) 4.7 MEQ/L CHLORIDE (test code = 2215) 99 MEQ/L CARBON DIOXIDE (test code = 26 MEQ/L 2206) CALCIUM (test code = 2209) 9.4 MG/DL BASIC METABOLIC [id number] 00:00:00 Test Item Value Reference Range Interpretation Comments GLUCOSE (test code = 2217) 135 MG/DL BUN (test code = 2208) 25 MG/DL CREATININE (test code = 2214) 0.76 MG/DL eGFR AMER. (test code 101 ML/MIN/1.73 = 46920) eGFR NON- AMER. (test 87 ML/MIN/1.73 code = 88814) SODIUM (test code = 2231) 139 MEQ/L POTASSIUM (test code = 2228) 4.7 MEQ/L CHLORIDE (test code = 2215) 99 MEQ/L CARBON DIOXIDE (test code = 26 MEQ/L 2206) CALCIUM (test code = 2209) 9.4 MG/DL LIPID [id number] 00:00:00 Test Item Value Reference Range Interpretation Comments CHOLESTEROL (test code = 2210) 262 MG/DL TRIGLYCERIDES (test code = 2232) 300 MG/DL HDL CHOLESTEROL (test code = 2220) 36 MG/DL CALC LDL CHOL (test code = 2237) 166 MG/DL RISK RATIO LDL/HDL (test code = 4.61 RATIO 2238) LIPID [id number] 00:00:00 Test Item Value Reference Range Interpretation Comments CHOLESTEROL (test code = 2210) 262 MG/DL TRIGLYCERIDES (test code = 2232) 300 MG/DL HDL CHOLESTEROL (test code = 2220) 36 MG/DL CALC LDL CHOL (test code = 2237) 166 MG/DL RISK RATIO LDL/HDL (test code = 4.61 RATIO 2238) HEMOGLOBIN [id number] 00:00:00 Test Item Value Reference Range Interpretation Comments HEMOGLOBIN A1c (test code = 39318) 6.2 % HEMOGLOBIN [id number] 00:00:00 Test Item Value Reference Range Interpretation Comments HEMOGLOBIN A1c (test code = 30698) 6.2 % HEMOGLOBIN [id number] 00:00:00 Test Item Value Reference Range Interpretation Comments HEMOGLOBIN A1c (test code = 99448) 6.2 % [id number] 00:00:00 Test Item Value Reference Range Interpretation Comments TSH, THIRD GENERATION (test code 0.988 UIU/ML = 2821) [id number] 00:00:00 Test Item Value Reference Range Interpretation Comments TSH, THIRD GENERATION (test code 0.988 UIU/ML = 2821) [id number] 00:00:00 Test Item Value Reference Range Interpretation Comments TSH, THIRD GENERATION (test code 0.988 UIU/ML = 2821) COMPREHENSIVE METABOLIC [id number] 00:00:00 Test Item Value Reference Range Interpretation Comments GLUCOSE (test code = 2217) 109 MG/DL BUN (test code = 2208) 25 MG/DL CREATININE (test code = 2214) 0.78 MG/DL eGFR AMER. (test code 98 ML/MIN/1.73 = 18377) eGFR NON- AMER. (test 84 ML/MIN/1.73 code = 84801) CALC BUN/CREAT (test code = 32 RATIO [...] code = 2219) 25 U/L COMPREHENSIVE METABOLIC [id number] 00:00:00 Test Item Value Reference Range Interpretation Comments GLUCOSE (test code = 2217) 109 MG/DL BUN (test code = 2208) 25 MG/DL CREATININE (test code = 2214) 0.78 MG/DL eGFR AMER. (test code 98 ML/MIN/1.73 = 08622) eGFR NON- AMER. (test 84 ML/MIN/1.73 code = 27967) CALC BUN/CREAT (test code = 32 RATIO [...] (test code = 2219) 25 U/L LIPID [id number] 00:00:00 Test Item Value Reference Range Interpretation Comments CHOLESTEROL (test code = 2210) 295 MG/DL TRIGLYCERIDES (test code = 2232) 218 MG/DL HDL CHOLESTEROL (test code = 2220) 46 MG/DL CALC LDL CHOL (test code = 2237) 205 MG/DL RISK RATIO LDL/HDL (test code = 4.47 RATIO 2238) LIPID [id number] 00:00:00 Test Item Value Reference Range Interpretation Comments CHOLESTEROL (test code = 2210) 295 MG/DL TRIGLYCERIDES (test code = 2232) 218 MG/DL HDL CHOLESTEROL (test code = 2220) 46 MG/DL CALC LDL CHOL (test code = 2237) 205 MG/DL RISK RATIO LDL/HDL (test code = 4.47 RATIO 2238) HEMOGLOBIN [id number] 00:00:00 Test Item Value Reference Range Interpretation Comments HEMOGLOBIN A1c (test code = 45337) 7.0 % HEMOGLOBIN [id number] 00:00:00 Test Item Value Reference Range Interpretation Comments HEMOGLOBIN A1c (test code = 67484) 7.0 % HEMOGLOBIN [id number] 00:00:00 Test Item Value Reference Range Interpretation Comments HEMOGLOBIN A1c (test code = 96165) 7.0 % [id number] 00:00:00 Test Item Value Reference Range Interpretation Comments TSH, THIRD GENERATION (test code 0.565 UIU/ML = 2821) [id number] 00:00:00 Test Item Value Reference Range Interpretation Comments TSH, THIRD GENERATION (test code 0.565 UIU/ML = 2821) [id number] 00:00:00 Test Item Value Reference Range Interpretation Comments TSH, THIRD GENERATION (test code 0.565 UIU/ML = 2821) COMPREHENSIVE METABOLIC [id number] 00:00:00 Test Item Value Reference Range Interpretation Comments GLUCOSE (test code = 2217) 109 MG/DL BUN (test code = 2208) 25 MG/DL CREATININE (test code = 2214) 0.78 MG/DL eGFR AMER. (test code 98 ML/MIN/1.73 = 13949) eGFR NON- AMER. (test 84 ML/MIN/1.73 code = 20393) CALC BUN/CREAT (test code = 32 RATIO [...] (test code = 2219) 25 U/L LIPID [id number] 00:00:00 Test Item Value Reference Range Interpretation Comments CHOLESTEROL (test code = 2210) 295 MG/DL TRIGLYCERIDES (test code = 2232) 218 MG/DL HDL CHOLESTEROL (test code = 2220) 46 MG/DL CALC LDL CHOL (test code = 2237) 205 MG/DL RISK RATIO LDL/HDL (test code = 4.47 RATIO 2238) HEMOGLOBIN [id number] 00:00:00 Test Item Value Reference Range Interpretation Comments HEMOGLOBIN A1c (test code = 95875) 7.0 % HEMOGLOBIN [id number] 00:00:00 Test Item Value Reference Range Interpretation Comments HEMOGLOBIN A1c (test code = 29217) 7.0 % [id number] 00:00:00 Test Item Value Reference Range Interpretation Comments TSH, THIRD GENERATION (test code 0.565 UIU/ML = 2821) [id number] 00:00:00 Test Item Value Reference Range Interpretation Comments TSH, THIRD GENERATION (test code 0.565 UIU/ML = 2821) COMPREHENSIVE METABOLIC [id number] 00:00:00 Test Item Value Reference Range Interpretation Comments GLUCOSE (test code = 2217) 109 MG/DL BUN (test code = 2208) 25 MG/DL CREATININE (test code = 2214) 0.78 MG/DL eGFR AMER. (test code 98 ML/MIN/1.73 = 11180) eGFR NON- AMER. (test 84 ML/MIN/1.73 code = 52715) CALC BUN/CREAT (test code = 32 RATIO [...] code = 2219) 25 U/L COMPREHENSIVE METABOLIC [id number] 00:00:00 Test Item Value Reference Range Interpretation Comments GLUCOSE (test code = 2217) 109 MG/DL BUN (test code = 2208) 25 MG/DL CREATININE (test code = 2214) 0.78 MG/DL eGFR AMER. (test code 98 ML/MIN/1.73 = 15835) eGFR NON- AMER. (test 84 ML/MIN/1.73 code = 35675) CALC BUN/CREAT (test code = 32 RATIO [...] (test code = 2219) 25 U/L LIPID [id number] 00:00:00 Test Item Value Reference Range Interpretation Comments CHOLESTEROL (test code = 2210) 295 MG/DL TRIGLYCERIDES (test code = 2232) 218 MG/DL HDL CHOLESTEROL (test code = 2220) 46 MG/DL CALC LDL CHOL (test code = 2237) 205 MG/DL RISK RATIO LDL/HDL (test code = 4.47 RATIO 2238) LIPID [id number] 00:00:00 Test Item Value Reference Range Interpretation Comments CHOLESTEROL (test code = 2210) 295 MG/DL TRIGLYCERIDES (test code = 2232) 218 MG/DL HDL CHOLESTEROL (test code = 2220) 46 MG/DL CALC LDL CHOL (test code = 2237) 205 MG/DL RISK RATIO LDL/HDL (test code = 4.47 RATIO 2238) HEMOGLOBIN [id number] 00:00:00 Test Item Value Reference Range Interpretation Comments HEMOGLOBIN A1c (test code = 02484) 7.0 % HEMOGLOBIN [id number] 00:00:00 Test Item Value Reference Range Interpretation Comments HEMOGLOBIN A1c (test code = 90394) 7.0 % HEMOGLOBIN [id number] 00:00:00 Test Item Value Reference Range Interpretation Comments HEMOGLOBIN A1c (test code = 76517) 7.0 % [id number] 00:00:00 Test Item Value Reference Range Interpretation Comments TSH, THIRD GENERATION (test code 0.565 UIU/ML = 2821) [id number] 00:00:00 Test Item Value Reference Range Interpretation Comments TSH, THIRD GENERATION (test code 0.565 UIU/ML = 2821) [id number] 00:00:00 Test Item Value Reference Range Interpretation Comments TSH, THIRD GENERATION (test code 0.565 UIU/ML = 2821) [id number] 00:00:00 Test Item Value Reference Range Interpretation Comments TSH, THIRD GENERATION (test code 0.379 UIU/ML = 2821) [id number] 00:00:00 Test Item Value Reference Range Interpretation Comments TSH, THIRD GENERATION (test code 0.379 UIU/ML = 2821) [id number] 00:00:00 Test Item Value Reference Range Interpretation Comments TSH, THIRD GENERATION (test code 0.379 UIU/ML = 2821) [id number] 00:00:00 Test Item Value Reference Range Interpretation Comments TSH, THIRD GENERATION (test code 0.379 UIU/ML = 2821) [id number] 00:00:00 Test Item Value Reference Range Interpretation Comments TSH, THIRD GENERATION (test code 0.379 UIU/ML = 2821) [id number] 00:00:00 Test Item Value Reference Range Interpretation Comments TSH, THIRD GENERATION (test code 0.379 UIU/ML = 2821) [id number] 00:00:00 Test Item Value Reference Range Interpretation Comments TSH, THIRD GENERATION (test code 0.379 UIU/ML = 2821) [id number] 00:00:00 Test Item Value Reference Range Interpretation Comments TSH, THIRD GENERATION (test code 0.379 UIU/ML = 2821) CULTURE, [id number] 00:00:00 Test Item Value Reference Range Interpretation Comments CULTURE, URINE (test SPECIMEN NUMBER: code = 07037) [id number] CULTURE, [id number] 00:00:00 Test Item Value Reference Range Interpretation Comments CULTURE, URINE (test SPECIMEN NUMBER: code = 65453) [id number] CULTURE, [id number] 00:00:00 Test Item Value Reference Range Interpretation Comments CULTURE, URINE (test SPECIMEN NUMBER: code = 70640) [id number] CULTURE, [id number] 00:00:00 Test Item Value Reference Range Interpretation Comments CULTURE, URINE (test SPECIMEN NUMBER: code = 20818) [id number] CULTURE, [id number] 00:00:00 Test Item Value Reference Range Interpretation Comments CULTURE, URINE (test SPECIMEN NUMBER: code = 96065) [id number] COMPREHENSIVE METABOLIC [id number] 00:00:00 Test Item Value Reference Range Interpretation Comments GLUCOSE (test code = 2217) 128 MG/DL BUN (test code = 2208) 26 MG/DL CREATININE (test code = 2214) 0.92 MG/DL eGFR AMER. (test code 81 ML/MIN/1.73 = 53585) eGFR NON- AMER. (test 70 ML/MIN/1.73 code = 17903) CALC BUN/CREAT (test code = 28 RATIO [...] code = 2219) 29 U/L COMPREHENSIVE METABOLIC [id number] 00:00:00 Test Item Value Reference Range Interpretation Comments GLUCOSE (test code = 2217) 128 MG/DL BUN (test code = 2208) 26 MG/DL CREATININE (test code = 2214) 0.92 MG/DL eGFR AMER. (test code 81 ML/MIN/1.73 = 38344) eGFR NON- AMER. (test 70 ML/MIN/1.73 code = 82067) CALC BUN/CREAT (test code = 28 RATIO 2235) SODIUM (test code = 2231) 138 MEQ/L POTASSIUM (test code = 2228) 4.4 MEQ/L CHLORIDE (test code = 2215) 94 MEQ/L CARBON DIOXIDE (test code = 31 MEQ/L 6) CALCIUM (test code = 2209) [...] code = 2219) 29 U/L ACUTE HEPATITIS [id number] 00:00:00 Test Item Value Reference Range Interpretation Comments HEPATITIS A IgM (test code = NON-REACTIVE 58067) HEPATITIS B CORE IgM (test code NON-REACTIVE = 4644) HEPATITIS B SURF AG (test code = NON-REACTIVE 2739) HEPATITIS C ANTIBODY (test code NON-REACTIVE = 4675) INTERPRETATION HEPATITIS A: (NOTE) (test code = 2552) INTERPRETATION HEPATITIS B: (NOTE) (test code = 34384) INTERPRETATION HEPATITIS C: (NOTE) (test code = 51435) ACUTE HEPATITIS [id number] 00:00:00 Test Item Value Reference Range Interpretation Comments HEPATITIS A IgM (test code = NON-REACTIVE 88447) HEPATITIS B CORE IgM (test code NON-REACTIVE = 4644) HEPATITIS B SURF AG (test code = NON-REACTIVE 2739) HEPATITIS C ANTIBODY (test code NON-REACTIVE = 4675) INTERPRETATION HEPATITIS A: (NOTE) (test code = 2552) INTERPRETATION HEPATITIS B: (NOTE) (test code = 75876) INTERPRETATION HEPATITIS C: (NOTE) (test code = 42894) [id number] 00:00:00 Test Item Value Reference Range Interpretation Comments AMYLASE (test code = 2205) 32 U/L [id number] 00:00:00 Test Item Value Reference Range Interpretation Comments AMYLASE (test code = 2205) 32 U/L [id number] 00:00:00 Test Item Value Reference Range Interpretation Comments LIPASE (test code = 2058) 22 U/L [id number] 00:00:00 Test Item Value Reference Range Interpretation Comments LIPASE (test code = 2058) 22 U/L [id number] 00:00:00 Test Item Value Reference Range Interpretation Comments LIPASE (test code = 2058) 22 U/L COMPREHENSIVE METABOLIC [id number] 00:00:00 Test Item Value Reference Range Interpretation Comments GLUCOSE (test code = 2217) 128 MG/DL BUN (test code = 2208) 26 MG/DL CREATININE (test code = 2214) 0.92 MG/DL eGFR AMER. (test code 81 ML/MIN/1.73 = 88893) eGFR NON- AMER. (test 70 ML/MIN/1.73 code = 12739) CALC BUN/CREAT (test code = 28 RATIO [...] code = 2219) 29 U/L ACUTE HEPATITIS [id number] 00:00:00 Test Item Value Reference Range Interpretation Comments HEPATITIS A IgM (test code = NON-REACTIVE 71973) HEPATITIS B CORE IgM (test code NON-REACTIVE = 4744) HEPATITIS B SURF AG (test code = NON-REACTIVE 2036) HEPATITIS C ANTIBODY (test code NON-REACTIVE = 6384) INTERPRETATION HEPATITIS A: (NOTE) (test code = 2552) INTERPRETATION HEPATITIS B: (NOTE) (test code = 50639) INTERPRETATION HEPATITIS C: (NOTE) (test code = 12672) [id number] 00:00:00 Test Item Value Reference Range Interpretation Comments AMYLASE (test code = 2205) 32 U/L [id number] 00:00:00 Test Item Value Reference Range Interpretation Comments LIPASE (test code = 2057) 22 U/L [id number] 00:00:00 Test Item Value Reference Range Interpretation Comments LIPASE (test code = 2057) 22 U/L COMPREHENSIVE METABOLIC [id number] 00:00:00 Test Item Value Reference Range Interpretation Comments GLUCOSE (test code = 2217) 128 MG/DL BUN (test code = 2208) 26 MG/DL CREATININE (test code = 2214) 0.92 MG/DL eGFR AMER. (test code 81 ML/MIN/1.73 = 48165) eGFR NON- AMER. (test 70 ML/MIN/1.73 code = 72456) CALC BUN/CREAT (test code = 28 RATIO [...] code = 2219) 29 U/L COMPREHENSIVE METABOLIC [id number] 00:00:00 Test Item Value Reference Range Interpretation Comments GLUCOSE (test code = 2217) 128 MG/DL BUN (test code = 2208) 26 MG/DL CREATININE (test code = 2214) 0.92 MG/DL eGFR AMER. (test code 81 ML/MIN/1.73 = 53570) eGFR NON- AMER. (test 70 ML/MIN/1.73 code = 25171) CALC BUN/CREAT (test code = 28 RATIO 2235) SODIUM (test code = 2231) 138 MEQ/L POTASSIUM (test code = 2228) 4.4 MEQ/L CHLORIDE (test code = 2215) 94 MEQ/L CARBON DIOXIDE (test code = 31 MEQ/L 2206) CALCIUM (test code = 2209) 9.5 MG/DL PROTEIN, TOTAL (test code = 7.3 G/DL 9) ALBUMIN (test code = 2201) 4.7 G/DL CALC GLOBULIN (test code = 2.6 G/DL 2240) CALC A/G RATIO (test code = 1.8 RATIO 2234) BILIRUBIN, TOTAL (test code = <0.2 MG/DL 2206) ALKALINE PHOSPHATASE (test 104 U/L code = 2204) AST (test code = 2218) 24 U/L ALT (test code = 2219) 29 U/L ACUTE HEPATITIS [id number] 00:00:00 Test Item Value Reference Range Interpretation Comments HEPATITIS A IgM (test code = NON-REACTIVE 88887) HEPATITIS B CORE IgM (test code NON-REACTIVE = 4644) HEPATITIS B SURF AG (test code = NON-REACTIVE 2739) HEPATITIS C ANTIBODY (test code NON-REACTIVE = 4675) INTERPRETATION HEPATITIS A: (NOTE) (test code = 2552) INTERPRETATION HEPATITIS B: (NOTE) (test code = 17316) INTERPRETATION HEPATITIS C: (NOTE) (test code = 99053) ACUTE HEPATITIS [id number] 00:00:00 Test Item Value Reference Range Interpretation Comments HEPATITIS A IgM (test code = NON-REACTIVE 34801) HEPATITIS B CORE IgM (test code NON-REACTIVE = 4644) HEPATITIS B SURF AG (test code = NON-REACTIVE 2739) HEPATITIS C ANTIBODY (test code NON-REACTIVE = 4675) INTERPRETATION HEPATITIS A: (NOTE) (test code = 2552) INTERPRETATION HEPATITIS B: (NOTE) (test code = 80237) INTERPRETATION HEPATITIS C: (NOTE) (test code = 38677) [id number] 00:00:00 Test Item Value Reference Range Interpretation Comments AMYLASE (test code = 2205) 32 U/L [id number] 00:00:00 Test Item Value Reference Range Interpretation Comments AMYLASE (test code = 2205) 32 U/L [id number] 00:00:00 Test Item Value Reference Range Interpretation Comments LIPASE (test code = 2058) 22 U/L [id number] 00:00:00 Test Item Value Reference Range Interpretation Comments LIPASE (test code = 2058) 22 U/L [id number] 00:00:00 Test Item Value Reference Range Interpretation Comments LIPASE (test code = 2058) 22 U/L [id number] 00:00:00 Test Item Value Reference Range Interpretation Comments TSH, THIRD GENERATION (test code 4.890 UIU/ML = 2821) [id number] 00:00:00 Test Item Value Reference Range Interpretation Comments TSH, THIRD GENERATION (test code 4.890 UIU/ML = 2821) [id number] 00:00:00 Test Item Value Reference Range Interpretation Comments TSH, THIRD GENERATION (test code 4.890 UIU/ML = 2821) COMPREHENSIVE METABOLIC [id number] 00:00:00 Test Item Value Reference Range Interpretation Comments GLUCOSE (test code = 2217) 121 MG/DL BUN (test code = 2208) 40 MG/DL CREATININE (test code = 2214) 1.48 MG/DL eGFR AMER. (test code 45 ML/MIN/1.73 = 12703) eGFR NON- AMER. (test 39 ML/MIN/1.73 code = 33335) CALC BUN/CREAT (test code = 27 RATIO [...] code = 2219) 20 U/L COMPREHENSIVE METABOLIC [id number] 00:00:00 Test Item Value Reference Range Interpretation Comments GLUCOSE (test code = 2217) 121 MG/DL BUN (test code = 2208) 40 MG/DL CREATININE (test code = 2214) 1.48 MG/DL eGFR AMER. (test code 45 ML/MIN/1.73 = 07320) eGFR NON- AMER. (test 39 ML/MIN/1.73 code = 54983) CALC BUN/CREAT (test code = 27 RATIO [...] ALKALINE PHOSPHATASE (test 99 U/L code = 220) AST (test code = 2218) 15 U/L ALT (test code = 2219) 20 U/L [id number] 00:00:00 Test Item Value Reference Range Interpretation Comments TSH, THIRD GENERATION (test code 4.890 UIU/ML = 2821) [id number] 00:00:00 Test Item Value Reference Range Interpretation Comments TSH, THIRD GENERATION (test code 4.890 UIU/ML = 2821) COMPREHENSIVE METABOLIC [id number] 00:00:00 Test Item Value Reference Range Interpretation Comments GLUCOSE (test code = 2217) 121 MG/DL BUN (test code = 2208) 40 MG/DL CREATININE (test code = 2214) 1.48 MG/DL eGFR AMER. (test code 45 ML/MIN/1.73 = 69501) eGFR NON- AMER. (test 39 ML/MIN/1.73 code = 79440) CALC BUN/CREAT (test code = 27 RATIO [...] ALT (test code = 2219) 20 U/L [id number] 00:00:00 Test Item Value Reference Range Interpretation Comments TSH, THIRD GENERATION (test code 4.890 UIU/ML = 2821) [id number] 00:00:00 Test Item Value Reference Range Interpretation Comments TSH, THIRD GENERATION (test code 4.890 UIU/ML = 2821) [id number] 00:00:00 Test Item Value Reference Range Interpretation Comments TSH, THIRD GENERATION (test code 4.890 UIU/ML = 2821) COMPREHENSIVE METABOLIC [id number] 00:00:00 Test Item Value Reference Range Interpretation Comments GLUCOSE (test code = 2217) 121 MG/DL BUN (test code = 2208) 40 MG/DL CREATININE (test code = 2214) 1.48 MG/DL eGFR AMER. (test code 45 ML/MIN/1.73 = 68099) eGFR NON- AMER. (test 39 ML/MIN/1.73 code = 45370) CALC BUN/CREAT (test code = 27 RATIO [...] code = 2219) 20 U/L COMPREHENSIVE METABOLIC [id number] 00:00:00 Test Item Value Reference Range Interpretation Comments GLUCOSE (test code = 2217) 121 MG/DL BUN (test code = 2208) 40 MG/DL CREATININE (test code = 2214) 1.48 MG/DL eGFR AMER. (test code 45 ML/MIN/1.73 = 42936) eGFR NON- AMER. (test 39 ML/MIN/1.73 code = 39107) CALC BUN/CREAT (test code = 27 RATIO [...] (test code = 2219) 20 U/L LIPID [id number] 00:00:00 Test Item Value Reference Range Interpretation Comments CHOLESTEROL (test code = 2210) 261 MG/DL TRIGLYCERIDES (test code = 2232) 165 MG/DL HDL CHOLESTEROL (test code = 2220) 58 MG/DL CALC LDL CHOL (test code = 2237) 170 MG/DL RISK RATIO LDL/HDL (test code = 2.93 RATIO 2238) LIPID [id number] 00:00:00 Test Item Value Reference Range Interpretation Comments CHOLESTEROL (test code = 2210) 261 MG/DL TRIGLYCERIDES (test code = 2232) 165 MG/DL HDL CHOLESTEROL (test code = 2220) 58 MG/DL CALC LDL CHOL (test code = 2237) 170 MG/DL RISK RATIO LDL/HDL (test code = 2.93 RATIO 2238) CBC W/AUTO [id number] 00:00:00 Test Item Value Reference Range Interpretation [...] code = 1015) 378 K/UL CBC W/AUTO [id number] 00:00:00 Test Item Value Reference Range Interpretation [...] code = 1015) 378 K/UL CBC W/AUTO [id number] 00:00:00 Test Item Value Reference Range Interpretation [...] (test code = 1015) 378 K/UL HEMOGLOBIN [id number] 00:00:00 Test Item Value Reference Range Interpretation Comments HEMOGLOBIN A1c (test code = 06295) 6.4 % HEMOGLOBIN [id number] 00:00:00 Test Item Value Reference Range Interpretation Comments HEMOGLOBIN A1c (test code = 41203) 6.4 % HEMOGLOBIN [id number] 00:00:00 Test Item Value Reference Range Interpretation Comments HEMOGLOBIN A1c (test code = 66530) 6.4 % [id number] 00:00:00 Test Item Value Reference Range Interpretation Comments TSH (test code = 2821) 5.290 UIU/ML [id number] 00:00:00 Test Item Value Reference Range Interpretation Comments TSH (test code = 2821) 5.290 UIU/ML [id number] 00:00:00 Test Item Value Reference Range Interpretation Comments TSH (test code = 2821) 5.290 UIU/ML LIPID [id number] 00:00:00 Test Item Value Reference Range Interpretation Comments CHOLESTEROL (test code = 2210) 261 MG/DL TRIGLYCERIDES (test code = 2232) 165 MG/DL HDL CHOLESTEROL (test code = 2220) 58 MG/DL CALC LDL CHOL (test code = 2237) 170 MG/DL RISK RATIO LDL/HDL (test code = 2.93 RATIO 2238) CBC W/AUTO [id number] 00:00:00 Test Item Value Reference Range Interpretation [...] code = 1015) 378 K/UL CBC W/AUTO [id number] 00:00:00 Test Item Value Reference Range Interpretation [...] (test code = 1015) 378 K/UL HEMOGLOBIN [id number] 00:00:00 Test Item Value Reference Range Interpretation Comments HEMOGLOBIN A1c (test code = 92284) 6.4 % HEMOGLOBIN [id number] 00:00:00 Test Item Value Reference Range Interpretation Comments HEMOGLOBIN A1c (test code = 32700) 6.4 % [id number] 00:00:00 Test Item Value Reference Range Interpretation Comments TSH (test code = 2821) 5.290 UIU/ML [id number] 00:00:00 Test Item Value Reference Range Interpretation Comments TSH (test code = 2821) 5.290 UIU/ML LIPID [id number] 00:00:00 Test Item Value Reference Range Interpretation Comments CHOLESTEROL (test code = 2210) 261 MG/DL TRIGLYCERIDES (test code = 2232) 165 MG/DL HDL CHOLESTEROL (test code = 2220) 58 MG/DL CALC LDL CHOL (test code = 2237) 170 MG/DL RISK RATIO LDL/HDL (test code = 2.93 RATIO 2238) LIPID [id number] 00:00:00 Test Item Value Reference Range Interpretation Comments CHOLESTEROL (test code = 2210) 261 MG/DL TRIGLYCERIDES (test code = 2232) 165 MG/DL HDL CHOLESTEROL (test code = 2220) 58 MG/DL CALC LDL CHOL (test code = 2237) 170 MG/DL RISK RATIO LDL/HDL (test code = 2.93 RATIO 2238) CBC W/AUTO [id number] 00:00:00 Test Item Value Reference Range Interpretation [...] code = 1015) 378 K/UL CBC W/AUTO [id number] 00:00:00 Test Item Value Reference Range Interpretation [...] code = 1015) 378 K/UL CBC W/AUTO [id number] 00:00:00 Test Item Value Reference Range Interpretation [...] (test code = 1015) 378 K/UL HEMOGLOBIN [id number] 00:00:00 Test Item Value Reference Range Interpretation Comments HEMOGLOBIN A1c (test code = 09774) 6.4 % HEMOGLOBIN [id number] 00:00:00 Test Item Value Reference Range Interpretation Comments HEMOGLOBIN A1c (test code = 60700) 6.4 % HEMOGLOBIN [id number] 00:00:00 Test Item Value Reference Range Interpretation Comments HEMOGLOBIN A1c (test code = 26467) 6.4 % [id number] 00:00:00 Test Item Value Reference Range Interpretation Comments TSH (test code = 2821) 5.290 UIU/ML [id number] 00:00:00 Test Item Value Reference Range Interpretation Comments TSH (test code = 2821) 5.290 UIU/ML [id number] 00:00:00 Test Item Value Reference Range Interpretation [...] code = 2821) 1.030 UIU/ML COMPREHENSIVE METABOLIC [id number] 00:00:00 Test Item Value Reference Range Interpretation Comments GLUCOSE (test code = 2217) 106 MG/DL BUN (test code = 2208) 23 MG/DL CREATININE (test code = 2214) 0.66 MG/DL eGFR AMER. (test code 114 ML/MIN/1.73 = 59410) eGFR NON- AMER. (test 99 ML/MIN/1.73 code = 74915) CALC BUN/CREAT (test code = 35 RATIO [...] code = 2219) 31 U/L COMPREHENSIVE METABOLIC [id number] 00:00:00 Test Item Value Reference Range Interpretation Comments GLUCOSE (test code = 2217) 106 MG/DL BUN (test code = 2208) 23 MG/DL CREATININE (test code = 2214) 0.66 MG/DL eGFR AMER. (test code 114 ML/MIN/1.73 = 59062) eGFR NON- AMER. (test 99 ML/MIN/1.73 code = 77963) CALC BUN/CREAT (test code = 35 RATIO [...] code = 2821) 0.335 UIU/ML COMPREHENSIVE METABOLIC [id number] 00:00:00 Test Item Value Reference Range Interpretation Comments GLUCOSE (test code = 2217) 106 MG/DL BUN (test code = 2208) 23 MG/DL CREATININE (test code = 2214) 0.66 MG/DL eGFR AMER. (test code 114 ML/MIN/1.73 = 84600) eGFR NON- AMER. (test 99 ML/MIN/1.73 code = 60863) CALC BUN/CREAT (test code = 35 RATIO [...] code = 2821) 0.335 UIU/ML COMPREHENSIVE METABOLIC [id number] 00:00:00 Test Item Value Reference Range Interpretation Comments GLUCOSE (test code = 2217) 106 MG/DL BUN (test code = 2208) 23 MG/DL CREATININE (test code = 2214) 0.66 MG/DL eGFR AMER. (test code 114 ML/MIN/1.73 = 83893) eGFR NON- AMER. (test 99 ML/MIN/1.73 code = 09284) CALC BUN/CREAT (test code = 35 RATIO [...] code = 2219) 31 U/L COMPREHENSIVE METABOLIC [id number] 00:00:00 Test Item Value Reference Range Interpretation Comments GLUCOSE (test code = 2217) 106 MG/DL BUN (test code = 2208) 23 MG/DL CREATININE (test code = 2214) 0.66 MG/DL eGFR AMER. (test code 114 ML/MIN/1.73 = 16684) eGFR NON- AMER. (test 99 ML/MIN/1.73 code = 27484) CALC BUN/CREAT (test code = 35 RATIO [...] code = 2821) 0.335 UIU/ML COMPREHENSIVE METABOLIC [id number] 00:00:00 Test Item Value Reference Range Interpretation Comments GLUCOSE (test code = 2217) 103 MG/DL BUN (test code = 2208) 15 MG/DL CREATININE (test code = 2214) 0.77 MG/DL eGFR AMER. (test code 101 ML/MIN/1.73 = 35433) eGFR NON- AMER. (test 87 ML/MIN/1.73 code = 39161) CALC BUN/CREAT (test code = 19 RATIO 2235) SODIUM (test code = 2231) 136 MEQ/L POTASSIUM (test code = 2228) 4.7 MEQ/L CHLORIDE (test code = 2215) 94 MEQ/L CARBON DIOXIDE (test code = 27 MEQ/L 6) CALCIUM (test code = 2209) 9.4 MG/DL [...] code = 2219) 24 U/L COMPREHENSIVE METABOLIC [id number] 00:00:00 Test Item Value Reference Range Interpretation Comments GLUCOSE (test code = 2217) 103 MG/DL BUN (test code = 2208) 15 MG/DL CREATININE (test code = 2214) 0.77 MG/DL eGFR AMER. (test code 101 ML/MIN/1.73 = 60524) eGFR NON- AMER. (test 87 ML/MIN/1.73 code = 99442) CALC BUN/CREAT (test code = 19 RATIO 5) SODIUM (test code = 2231) 136 MEQ/L [...] code = 2821) 0.424 UIU/ML COMPREHENSIVE METABOLIC [id number] 00:00:00 Test Item Value Reference Range Interpretation Comments GLUCOSE (test code = 2217) 103 MG/DL BUN (test code = 2208) 15 MG/DL CREATININE (test code = 2214) 0.77 MG/DL eGFR AMER. (test code 101 ML/MIN/1.73 = 44556) eGFR NON- AMER. (test 87 ML/MIN/1.73 code = 80716) CALC BUN/CREAT (test code = 19 RATIO [...] code = 2821) 0.424 UIU/ML COMPREHENSIVE METABOLIC [id number] 00:00:00 Test Item Value Reference Range Interpretation Comments GLUCOSE (test code = 2217) 103 MG/DL BUN (test code = 2208) 15 MG/DL CREATININE (test code = 2214) 0.77 MG/DL eGFR AMER. (test code 101 ML/MIN/1.73 = 79030) eGFR NON- AMER. (test 87 ML/MIN/1.73 code = 10336) CALC BUN/CREAT (test code = 19 RATIO [...] code = 2219) 24 U/L COMPREHENSIVE METABOLIC [id number] 00:00:00 Test Item Value Reference Range Interpretation Comments GLUCOSE (test code = 2217) 103 MG/DL BUN (test code = 2208) 15 MG/DL CREATININE (test code = 2214) 0.77 MG/DL eGFR AMER. (test code 101 ML/MIN/1.73 = 03043) eGFR NON- AMER. (test 87 ML/MIN/1.73 code = 69125) CALC BUN/CREAT (test code = 19 RATIO 2235) SODIUM (test code = 2231) 136 MEQ/L POTASSIUM (test code = 2228) 4.7 MEQ/L CHLORIDE (test code = 2215) 94 MEQ/L CARBON DIOXIDE (test code = 27 MEQ/L 6) CALCIUM (test code = 2209) 9.4 MG/DL [...] (test code = 2821) 0.424 UIU/ML CULTURE, [id number] 00:00:00 Test Item Value Reference Range Interpretation Comments CULTURE, URINE (test SPECIMEN NUMBER: code = 99555) [id number] CULTURE, [id number] 00:00:00 Test Item Value Reference Range Interpretation Comments CULTURE, URINE (test SPECIMEN NUMBER: code = 50435) [id number] CULTURE, [id number] 00:00:00 Test Item Value Reference Range Interpretation Comments CULTURE, URINE (test SPECIMEN NUMBER: code = 06179) [id number] CULTURE, [id number] 00:00:00 Test Item Value Reference Range Interpretation Comments CULTURE, URINE (test SPECIMEN NUMBER: code = 20107) [id number] CULTURE, [id number] 00:00:00 Test Item Value Reference Range Interpretation Comments CULTURE, URINE (test SPECIMEN NUMBER: code = 17534) [id number] CULTURE, [id number] 00:00:00 Test Item Value Reference Range Interpretation Comments CULTURE, URINE (test SPECIMEN NUMBER: code = 33191) [id number] CULTURE, [id number] 00:00:00 Test Item Value Reference Range Interpretation Comments CULTURE, URINE (test SPECIMEN NUMBER: code = 01354) [id number] CULTURE, [id number] 00:00:00 Test Item Value Reference Range Interpretation Comments CULTURE, URINE (test SPECIMEN NUMBER: code = 39837) [id number] CULTURE, [id number] 00:00:00 Test Item Value Reference Range Interpretation Comments CULTURE, URINE (test SPECIMEN NUMBER: code = 28099) [id number] CULTURE, [id number] 00:00:00 Test Item Value Reference Range Interpretation Comments CULTURE, URINE (test SPECIMEN NUMBER: code = 42851) [id number]
[2022-01-12] MEDS ORDERED: FAMOTIDINE 20 MG TAB ONE (16:34)
--- NOTE | 2022-01-12 16:35 | ER ---
Nurse's Notes [facility] Name: Jaimie Amanda Age: 61 yrs Sex: Female : 1960 Arrival Date: 01/12/2022 Time: 16:18 Bed IW3 Private MD: Diagnosis: Abdominal pain, unspecified Presentation: 01/12 16:30 Chief complaint: Dizziness and right sided abdominal pain x 2 hours. Coronavirus hb screen: At this time, the client does not indicate any symptoms associated with coronavirus-19. Ebola Screen: No symptoms or risks identified at this time. Risk Assessment: Do you want to hurt yourself or someone else? Patient reports no desire to harm self or others. Onset of symptoms was January 12, 2022. 16:30 Method Of Arrival: Ambulatory hb 16:30 Acuity: ZHEN 3 hb Historical: - Allergies: 16:32 No Known Allergies; hb Vital Signs: 16:30 BP 156 / 94; Pulse 82; Resp 20; Temp 98.7; Pulse Ox 97% on R/A; Weight 79.38 kg; Height hb 5 ft. 7 in. (170.18 cm); Pain 8/10; 16:30 Body Mass Index 27.41 (79.38 kg, 170.18 cm) hb ED Course: 16:18 Patient arrived in ED. rg4 16:22 [facility] 16:32 Triage completed. hb Administered Medications: No medications were administered Outcome: 16:34 Discharge ordered by MD. chaney Signatures: Fawn Torres FNP-C FNP-Gail Bhakta, Alejandra Rodney RN rg4 Wilfrid Singh DO DO ms3
--- NOTE | 2022-01-12 16:35 | EDPHYS ---
Physician Documentation [facility] [place], [place] Name: Jaimie Amanda Age: 61 yrs Sex: Female : 1960 Arrival Date: 01/12/2022 Time: 16:18 Bed IW3 Private MD: ED Physician HPI: 01/12 16:32 This 61 yrs old Female presents to ER via Ambulatory with complaints of Sick. snw 16:32 The patient presents with abdominal pain. Onset: The symptoms/episode began/occurred snw acutely. The symptoms do not radiate. Associated signs and symptoms: Pertinent positives: nausea. The symptoms are described as vague. The patient has experienced similar episodes in the past, chronically. The patient has been recently seen at the [facility], today, by me, for similar complaints labs were performed, Previous workup normal was given a prescription for pain medications, has appt with GI tomorrow. Historical: - Allergies: 16:32 No Known Allergies; hb Vital Signs: 16:30 BP 156 / 94; Pulse 82; Resp 20; Temp 98.7; Pulse Ox 97% on R/A; Weight 79.38 kg; Height hb 5 ft. 7 in. (170.18 cm); Pain 8/10; 16:30 Body Mass Index 27.41 (79.38 kg, 170.18 cm) hb MDM: 16:34 Patient medically screened. snw Administered Medications: No medications were administered Disposition Summary: 01/12/22 16:34 Discharge Ordered Location: Home snw Condition: Stable snw Diagnosis - Abdominal pain, unspecified snw Followup: snw - With: Private Physician - When: Tomorrow - Reason: Recheck today's complaints, Continuance of care, Re-evaluation by your physician Forms: - Medication Reconciliation Form snw - Thank You Letter snw - Antibiotic Education snw - Prescription Opioid Use snw Signatures: Fawn Torres FNP-C [employer]-Csnw Gail Espinoza, RN RN hb
[2022-01-12 17:05] VITALS: BP 156/94; TEMP 98.7; O2SAT 97
== END 2022-01-12 16:46 | disposition home or self-care (01) ==
LOC: ER 16:16
DX: R10.9 Unspecified abdominal pain (principal)
CPT/HCPCS: 99282

== ENCOUNTER 2022-02-08 14:03 | Emergency (ER) | payer OTHER ==
--- OUTSIDE RECORDS SUMMARY | 2022-02-08 14:12 | XMS REPORT | Continuity of Care Document ---
:1960 Author Organization [facility] t Address [address] [place] [address] Care Team Providers Name Role Phone Sharpless Primary Care Physician MATT SIMPSON Attending Clinician Unavailable MATT SIMPSON Attending Clinician Unavailable Doctor Unassigned, [place] Attending Clinician Unavailable WALLY KRISHNAMURTHY Attending Clinician Unavailable Gramm Natacha CLARK Attending Clinician Payers Payer Name Policy Type Policy Number Effective Date Expiration Date Sarina castelan [facility] [id number] 2017 00:00:00 PLUS Problems This patient has [...] ers OPHEN INGREDI 07-27 ity of 00:00: [place] [address] [facility] Propensi Inactiv Reductas ty to e 2-28 e adverse 00:00: Inhibito reaction 00 rs to drug Nitrogly Propensi Active 2017-03 cerin ty to 1-08 adverse 00:00: reaction 00 to drug Social History Social Habit Start Date Stop Date Quantity Comments Source Alcohol intake 2016-05-01 2016-05-01 Current [facility] 00:00:00 00:00:00 non-drinker of Medical nter alcohol (finding) Sex Ass[birth year] At [birth year] [facility] 00:00:00 00:00:00 [facility] Smoking Status Start Date Stop Date Source Current every day smoker 2016-05-01 00:00:00 [facility] Medications Ordered Filled Start [...] ne 137 mcg 3-27 tablet 00:00: 00 levothyroxi 2020-0 [...] baclofen 10 2020-0 No 1mg mg tablet 326 00:00: 00 liothyronin 2020-0 No 1mcg e [...] e 5 mcg 3-26 tablet 00:00: 00 ondansetron 2020-0 No [...] baclofen 10 2016-0 No 1mg mg tablet 530 00:00: 00 levothyroxi 2017-0 No 1mcg ne 150 mcg 5-30 tablet 00:00: 00 hydroxyzine 2016-0 No 1mg pamoate 50 5-30 mg capsule 00:00: 00 PARoxetine 2017-0 Yes 40mg QD Take [address] (PAXIL) 40 2-23 [facility] tablet 10:23: nightly. [facility] OXcarbazepi 2017-0 Yes 600mg Q.51503904 Take [address] [address] ne 2-23 [id number] mg by [facility] (TRILEPTAL) 10:23: 3D mouth 3 Med ical 600 MG 59 (three) Center tablet times daily. PARoxetine 2017-0 Yes 40mg QD Take [address] (PAXIL) 40 2-23 [facility] tablet 10:23: nightly. [facility] OXcarbazepi 2017-0 Yes 600mg Q.77279049 Take [address] ne 2-23 [id number] mg by [facility] (TRILEPTAL) 10:23: 3D mouth 3 Med ical 600 MG 59 (three) Center tablet times daily. OXcarbazepi 2017-0 Yes 600mg Q.36663010 Take [address] [address] ne 2-23 [id number] mg by [facility] (TRILEPTAL) 10:23: 3D mouth 3 Med ical 600 MG 59 (three) Center tablet times daily. PARoxetine 2017-0 Yes 40mg QD Take [address] (PAXIL) 40 2-23 [facility] tablet 10:23: nightly. [address] PARoxetine 2017-0 Yes 40mg QD Take [address] (PAXIL) 40 2-23 by [facility] tablet 10:23: nightly. [address] OXcarbazepi 2017-0 Yes 600mg Q.00135268 Take [address] ne 2-23 [id number] mg by [facility] (TRILEPTAL) 10:23: 3D mouth 3 Med ical 600 MG 59 (three) Center tablet times daily. PARoxetine 2017-0 Yes 40mg QD Take [address] (PAXIL) 40 2-23 by [facility] tablet 10:23: nightly. [address] 2017-0 Yes 600mg Q.03110201 Take [address] ne 2-23 [id number] mg by [facility] (TRILEPTAL) 10:23: 3D mouth 3 Med ical 600 MG 59 (three) Center tablet times daily. PARoxetine 2017-0 Yes 40mg QD Take [address] (PAXIL) 40 2-23 by [facility] tablet 10:23: nightly. [address] 2017-0 Yes 600mg Q.18140654 Take [address] ne 2-23 [id number] [facility] by [facility] (TRILEPTAL) 10:23: 3D mouth 3 Med ical 600 MG 59 (three) Center tablet times daily. PARoxetine 2017-0 Yes 40mg QD Take [address] (PAXIL) 40 2-23 by [facility] tablet 10:23: nightly. [address] OXcarbazepi 2017-0 Yes 600mg Q.98044909 Take [address] ne 2-23 [id number] mg by [facility] (TRILEPTAL) 10:23: 3D mouth 3 Med ical 600 MG 59 (three) Center tablet times daily. PARoxetine 2017-0 Yes 40mg QD Take [address] (PAXIL) 40 2-23 by [facility] tablet 10:23: nightly. [address] 2017-0 Yes 600mg Q.08661914 Take [address] ne 2-23 [id number] mg by [facility] (TRILEPTAL) 10:23: 3D mouth 3 Med ical 600 MG 59 (three) Center tablet times daily. PARoxetine 2017-0 Yes 40mg QD Take [address] (PAXIL) 40 2-23 by [facility] tablet 10:23: nightly. [address] OXcarbazepi 2017-0 Yes 600mg Q.52306383 Take [address] ne 2-23 [id number] mg by [facility] (TRILEPTAL) 10:23: 3D mouth 3 Med ical 600 MG 59 (three) Center tablet times daily. PARoxetine 2017-0 Yes 40mg QD Take [address] (PAXIL) 40 2-23 by mouth [facility] tablet 10:23: nightly. [address] OXcarbazepi 2017-0 Yes 600mg Q.43134621 Take [address] ne 2-23 [id number] mg by [facility] (TRILEPTAL) 10:23: 3D mouth 3 Med ical 600 MG 59 (three) Center tablet times daily. PARoxetine 2017-0 Yes 40mg QD Take [address] (PAXIL) 40 2-23 by mouth [facility] tablet 10:23: nightly. [address] OXcarbazepi 2017-0 Yes 600mg Q.34759495 Take [address] ne 2-23 [id number] mg by [facility] (TRILEPTAL) 10:23: 3D mouth [...] [facility] ne 4-04 mcg by [place] (SYNTHROID, 12:29: mouth Medic al LEVOTHROID) 18 daily. Center 100 MCG tablet levothyroxi 2015-0 Yes 100ug QD Take [address] ne 4-04 mcg by Yasir (SYNTHROID, 12:29: mouth Medic al LEVOTHROID) 18 [...] Goal Plan of Care Note [code = 04154-8] Goal Plan of Care Note [code = 04481-2] Goal Plan of Care Note [code = 61114-2] Goal Plan of Care Note [code = 63364-1] Goal Plan of Care Note [code = 32297-4] Goal Plan of Care Note [code = 41768-5] Goal Plan of Care Note [code = 00364-5] Goal Plan of Care Note [code = 00697-8] Goal Plan of Care Note [code = 89705-1] Goal Plan of Care Note [code = 56691-7] Goal Plan of Care Note [code = 48866-8] Goal Plan of Care Note [code = 69431-4] Goal Plan of Care Note [code = 38915-9] Goal Plan of Care Note [code = 28560-0] Goal Plan of Care Note [code = 52255-2] Goal Plan of Care Note [code = 56668-4] Goal Plan of Care Note [code = 43310-2] Goal Plan of Care Note [code = 29870-5] Goal Plan of Care Note [code = 98234-2] Goal Plan of Care Note [code = 22505-4] Goal Plan of Care Note [code = 34372-3] Goal Plan of Care Note [code = 40770-8] Goal Plan of Care Note [code = 50001-5] Goal Plan of Care Note [code = 05260-7] Goal Plan of Care Note [code = 98310-6] Goal Plan of Care Note [code = 44820-4] Goal Plan of Care Note [code = 92168-5] Goal Plan of Care Note [code = 73910-9] Goal Plan of Care Note [code = 42174-5] Goal Plan of Care Note [code = 23204-4] Goal Plan of Care Note [code = 64344-6] Goal Plan of Care Note [code = 33546-6] Goal Plan of Care Note [code = 49263-1] Goal Plan of Care Note [code = 53595-3] Goal Plan of Care Note [code = 38092-6] Goal Plan of Care Note [code = 85704-1] Goal Plan of Care Note [code = 73882-7] Goal Plan of Care Note [code = 42715-7] Goal Plan of Care Note [code = 55546-9] Goal Plan of Care Note [code = 93790-8] Goal Plan of Care Note [code = 43907-9] Goal Plan of Care Note [code = 09883-8] Goal Plan of Care Note [code = 94394-5] Goal Plan of Care Note [code = 55421-2] Goal Plan of Care Note [code = 12325-7] Goal Plan of Care Note [code = 02210-2] Goal Plan of Care Note [code = 12946-3] Goal Plan of Care Note [code = 73685-1] Goal Plan of Care Note [code = 82397-1] Goal Plan of Care Note [code = 81032-5] Goal Plan of Care Note [code = 62357-3] Goal Plan of Care Note [code = 45115-7] Goal Plan of Care Note [code = 02714-8] Goal Plan of Care Note [code = 15296-1] Goal Plan of Care Note [code = 74320-9] Goal Plan of Care Note [code = 21988-7] Goal Plan of Care Note [code = 05602-8] Goal Plan of Care Note [code = 97802-3] Goal Plan of Care Note [code = 55786-8] Goal Plan of Care Note [code = 26494-9] Goal Plan of Care Note [code = 28063-6] Goal Plan of Care Note [code = 86679-7] Goal Plan of Care Note [code = 83244-3] Goal Plan of Care Note [code = 14069-7] Goal Plan of Care Note [code = 81250-1] Goal Plan of Care Note [code = 79718-7] Goal Plan of Care Note [code = 41574-0] Goal Plan of Care Note [code = 12871-9] Goal Plan of Care Note [code = 52382-7] Goal Plan of Care Note [code = 03205-6] Goal Plan of Care Note [code = 18612-5] Goal Plan of Care Note [code = 94476-5] Goal Plan of Care Note [code = 37769-6] Goal Plan of Care Note [code = 76623-9] Goal Plan of Care Note [code = 36450-4] Goal Plan of Care Note [code = 51101-1] Goal Plan of Care Note [code = 99205-0] Goal Plan of Care Note [code = 80772-5] Goal Plan of Care Note [code = 91679-9] Goal Plan of Care Note [code = 60899-9] Goal Plan of Care Note [code = 66237-5] Goal Plan of Care Note [code = 41032-1] Goal Plan of Care Note [code = 00938-4] Goal Plan of Care Note [code = 99983-0] Goal Plan of Care Note [code = 56323-2] Goal Plan of Care Note [code = 30330-8] Goal Plan of Care Note [code = 14904-1] Goal Plan of Care Note [code = 72634-0] Goal Plan of Care Note [code = 52899-0] Goal Plan of Care Note [code = 25406-5] Goal Plan of Care Note [code = 93610-0] Goal Plan of Care Note [code = 16400-0] Goal Plan of Care Note [code = 87322-8] Goal Plan of Care Note [code = 96273-1] Goal Plan of Care Note [code = 35796-9] Goal Plan of Care Note [code = 33466-8] Goal Plan of Care Note [code = 04616-5] Goal Plan of Care Note [code = 78474-9] Goal Plan of Care Note [code = 47733-0] Goal Plan of Care Note [code = 63018-7] Goal Plan of Care Note [code = 33391-2] Goal Plan of Care Note [code = 21390-6] Goal Plan of Care Note [code = 57285-7] Goal Plan of Care Note [code = 00655-5] Goal Plan of Care Note [code = 41566-8] Goal Plan of Care Note [code = 12198-9] Goal Plan of Care Note [code = 57090-0] Goal Plan of Care Note [code = 01136-4] Goal Plan of Care Note [code = 68545-5] Goal Plan of Care Note [code = 65493-4] Goal Plan of Care Note [code = 21424-6] Goal Plan of Care Note [code = 82810-7] Goal Plan of Care Note [code = 18832-6] Goal Plan of Care Note [code = 79012-1] Goal Plan of Care Note [code = 72407-4] Goal Plan of Care Note [code = 70103-1] Goal Plan of Care Note [code = 39561-7] Goal Plan of Care Note [code = 36203-4] Goal Plan of Care Note [code = 01245-1] Goal Plan of Care Note [code = 79250-5] Goal Plan of Care Note [code = 59401-9] Goal Plan of Care Note [code = 93358-0] Goal Plan of Care Note [code = 33077-3] Goal Plan of Care Note [code = 54455-8] Goal Plan of Care Note [code = 31176-5] Goal Plan of Care Note [code = 28612-1] Goal Plan of Care Note [code = 38608-9] Goal Plan of Care Note [code = 45547-4] Goal Plan of Care Note [code = 60790-7] Goal Plan of Care Note [code = 28912-6] Goal Plan of Care Note [code = 58213-9] Goal Plan of Care Note [code = 12685-5] Goal Plan of Care Note [code = 90056-9] Goal Plan of Care Note [code = 31602-0] Goal Plan of Care Note [code = 41311-5] Goal Plan of Care Note [code = 98852-4] Goal Plan of Care Note [code = 16157-3] Goal Plan of Care Note [code = 44646-2] Goal Plan of Care Note [code = 97193-0] Goal Plan of Care Note [code = 75184-7] Goal Plan of Care Note [code = 48553-3] Goal Plan of Care Note [code = 20874-2] Goal Plan of Care Note [code = 31084-7] Goal Plan of Care Note [code = 95391-7] Goal Plan of Care Note [code = 05330-6] Goal Plan of Care Note [code = 49907-7] Goal Plan of Care Note [code = 60469-4] Goal Plan of Care Note [code = 78121-0] Goal Plan of Care Note [code = 63551-6] Goal Plan of Care Note [code = 62730-4] Goal Plan of Care Note [code = 48630-7] Goal Plan of Care Note [code = 68399-5] Goal Plan of Care Note [code = 72258-7] Goal Plan of Care Note [code = 22311-6] Goal Plan of Care Note [code = 39144-3] Encounters Start End Encounter Admission Attending Care Care Encounter Source Date/Time Date/Time Type Type Clinicians Facility Department ID 2021-06-01 [id number] Lonjuan ramon 01:36:29 [id number] [facility] 2022-01-10 2022-01-10 Outpatient SFA LYDIA [id number] 022 Cristian 09:16:14 09:16:14 1104 F Jerman 2022-01-10 2022-01-10 Outpatient [id number]- [id number] accaa6-a 00:00:00 00:00:00 Visit aca9-4c83 ca9-4c83-a -f7ho-fz3 7eb-bc13f3 3p9w580m8 f032f9 2021-12-19 2021-12-19 Outpatient SFA SFA [id number] 022 Cristian 16:11:31 16:11:31 1013 F Jerman 2021-12-19 2021-12-19 Outpatient [id number] 466cae-a 00:00:00 00:00:00 Visit a644-793o 770-441f-a -adae-62b amelia-62bace dwerw38wp fd81af 2021-09-17 2021-09-17 Outpatient ewn6vbhu- [id number] aa t9fgmj-3 00:00:00 00:00:00 Visit 935a-4f50 35a-4f50-b -j70u-o4r 77d-c2ba85 p044210r4 1264a6 2020-08-03 2020-08-03 Outpatient MATT VÁSQUEZ [facility] [id number] [facility] 10:00:00 10:00:00 MATT SIMPSON [facility] 2020-07-25 2020-07-25 Orders Doctor ABE [id number] 00:00:00 00:00:00 Only Unassigned, BK 350.1.13.10 [place] [facility] 4.2.7.2.686 [id number] 2019-09-26 2019-09-26 Outpatient Betrin KRISHNAMURTHY [facility] [id number] [facility] 16:00:00 16:00:00 WALLY [facility] 2018-10-21 2018-10-21 [facility] [id number] 00:00:00 00:00:00 Natacha Nguyen 350.1.13.10 Ade 4.2.7.2.686 [facility] [id number] [facility] 204 [facility] Results Test Description Test Time Test Comments Results Result Comments Source TSH, THIRD GENERATION 2021-06-27 05:15:49 Test Item Value Reference Range Interpretation Comme nts TSH, THIRD GENERATION (test code = 2821) 2.080 UIU/ML 0.400-4.100 HEMOGLOBIN [id number] 03:46:00 Test Item Value Reference Range Interpretation Comments HEMOGLOBIN A1c (test 6.6 % 4.2-5.6 H AMERIC AN DIABETES code = 98592) ASSOCIATION IDELINES FOR HGB A1C: PREDIABETES/INC REASED [...] INDICATED, ALL TESTING PER FORMED ATCLINICAL PATH [facility] [place] [address] LABORATORY DIRE CTOR: DIANA RUSS M.D. CLIA NUMBER [id number] [facility]. [id number] LIPID [id number] 02:59:52 Test Item Value Reference Range Interpretation [...] , SEE CLIENT ANNOUNCE MENT AT [email or web address] RISK RATIO LDL/HDL 4.02 RATIO <3.22 H (test code = 2238) [id number] 00:00:00 Test Item Value Reference Range Interpretation Comments TSH, THIRD GENERATION (test code 2.080 UIU/ML = 2821) [id number] 00:00:00 Test Item Value Reference Range Interpretation Comments TSH, THIRD GENERATION (test code 2.080 UIU/ML = 2821) [id number] 00:00:00 Test Item Value Reference Range Interpretation Comments TSH, THIRD GENERATION (test code 2.080 UIU/ML = 2821) LIPID [id number] 00:00:00 Test Item Value Reference Range Interpretation Comments CHOLESTEROL (test code = 2210) 292 MG/DL TRIGLYCERIDES (test code = 2232) 184 MG/DL HDL CHOLESTEROL (test code = 2220) 51 MG/DL CALC LDL CHOL (test code = 2237) 205 MG/DL RISK RATIO LDL/HDL (test code = 4.02 RATIO 2238) LIPID [id number] 00:00:00 Test Item Value Reference Range Interpretation Comments CHOLESTEROL (test code = 2210) 292 MG/DL TRIGLYCERIDES (test code = 2232) 184 MG/DL HDL CHOLESTEROL (test code = 2220) 51 MG/DL CALC LDL CHOL (test code = 2237) 205 MG/DL RISK RATIO LDL/HDL (test code = 4.02 RATIO 2238) HEMOGLOBIN [id number] 00:00:00 Test Item Value Reference Range Interpretation Comments HEMOGLOBIN A1c (test code = 35991) 6.6 % HEMOGLOBIN [id number] 00:00:00 Test Item Value Reference Range Interpretation Comments HEMOGLOBIN A1c (test code = 76489) 6.6 % HEMOGLOBIN [id number] 00:00:00 Test Item Value Reference Range Interpretation Comments HEMOGLOBIN A1c (test code = 32229) 6.6 % [id number] 00:00:00 Test Item Value Reference Range Interpretation Comments TSH, THIRD GENERATION (test code 2.080 UIU/ML = 2821) [id number] 00:00:00 Test Item Value Reference Range Interpretation Comments TSH, THIRD GENERATION (test code 2.080 UIU/ML = 2821) LIPID [id number] 00:00:00 Test Item Value Reference Range Interpretation Comments CHOLESTEROL (test code = 2210) 292 MG/DL TRIGLYCERIDES (test code = 2232) 184 MG/DL HDL CHOLESTEROL (test code = 2220) 51 MG/DL CALC LDL CHOL (test code = 2237) 205 MG/DL RISK RATIO LDL/HDL (test code = 4.02 RATIO 2238) HEMOGLOBIN [id number] 00:00:00 Test Item Value Reference Range Interpretation Comments HEMOGLOBIN A1c (test code = 74331) 6.6 % HEMOGLOBIN [id number] 00:00:00 Test Item Value Reference Range Interpretation Comments HEMOGLOBIN A1c (test code = 32851) 6.6 % [id number] 00:00:00 Test Item Value Reference Range Interpretation Comments TSH, THIRD GENERATION (test code 2.080 UIU/ML = 2821) [id number] 00:00:00 Test Item Value Reference Range Interpretation Comments TSH, THIRD GENERATION (test code 2.080 UIU/ML = 2821) [id number] 00:00:00 Test Item Value Reference Range Interpretation Comments TSH, THIRD GENERATION (test code 2.080 UIU/ML = 2821) LIPID [id number] 00:00:00 Test Item Value Reference Range Interpretation Comments CHOLESTEROL (test code = 2210) 292 MG/DL TRIGLYCERIDES (test code = 2232) 184 MG/DL HDL CHOLESTEROL (test code = 2220) 51 MG/DL CALC LDL CHOL (test code = 2237) 205 MG/DL RISK RATIO LDL/HDL (test code = 4.02 RATIO 2238) LIPID [id number] 00:00:00 Test Item Value Reference Range Interpretation Comments CHOLESTEROL (test code = 2210) 292 MG/DL TRIGLYCERIDES (test code = 2232) 184 MG/DL HDL CHOLESTEROL (test code = 2220) 51 MG/DL CALC LDL CHOL (test code = 2237) 205 MG/DL RISK RATIO LDL/HDL (test code = 4.02 RATIO 2238) HEMOGLOBIN [id number] 00:00:00 Test Item Value Reference Range Interpretation Comments HEMOGLOBIN A1c (test code = 54937) 6.6 % HEMOGLOBIN [id number] 00:00:00 Test Item Value Reference Range Interpretation Comments HEMOGLOBIN A1c (test code = 50941) 6.6 % HEMOGLOBIN [id number] 00:00:00 Test Item Value Reference Range Interpretation Comments HEMOGLOBIN A1c (test code = 48451) 6.6 % HEMOGLOBIN [id number] 00:00:00 Test Item Value Reference Range Interpretation Comments HEMOGLOBIN A1c (test code = 36840) 6.8 % HEMOGLOBIN [id number] 00:00:00 Test Item Value Reference Range Interpretation Comments HEMOGLOBIN A1c (test code = 25247) 6.8 % HEMOGLOBIN [id number] 00:00:00 Test Item Value Reference Range Interpretation Comments HEMOGLOBIN A1c (test code = 48798) 6.8 % LIPID [id number] 00:00:00 Test Item Value Reference Range Interpretation Comments CHOLESTEROL (test code = 2210) 303 MG/DL TRIGLYCERIDES (test code = 2232) 191 MG/DL HDL CHOLESTEROL (test code = 2220) 61 MG/DL CALC LDL CHOL (test code = 2237) 205 MG/DL RISK RATIO LDL/HDL (test code = 3.36 RATIO 2238) LIPID [id number] 00:00:00 Test Item Value Reference Range Interpretation Comments CHOLESTEROL (test code = 2210) 303 MG/DL TRIGLYCERIDES (test code = 2232) 191 MG/DL HDL CHOLESTEROL (test code = 2220) 61 MG/DL CALC LDL CHOL (test code = 2237) 205 MG/DL RISK RATIO LDL/HDL (test code = 3.36 RATIO 2238) [id number] 00:00:00 Test Item Value Reference Range Interpretation Comments TSH, THIRD GENERATION (test code 0.769 UIU/ML = 2821) [id number] 00:00:00 Test Item Value Reference Range Interpretation Comments TSH, THIRD GENERATION (test code 0.769 UIU/ML = 2821) [id number] 00:00:00 Test Item Value Reference Range Interpretation Comments TSH, THIRD GENERATION (test code 0.769 UIU/ML = 2821) COMPREHENSIVE METABOLIC [id number] 00:00:00 Test Item Value Reference Range Interpretation Comments GLUCOSE (test code = 2217) 131 MG/DL BUN (test code = 2208) 13 MG/DL CREATININE (test code = 2214) 0.65 MG/DL eGFR AMER. (test code 113 ML/MIN/1.73 = 42938) eGFR NON- AMER. (test 97 ML/MIN/1.73 code = 13515) CALC BUN/CREAT (test code = 20 RATIO [...] code = 2219) 23 U/L COMPREHENSIVE METABOLIC [id number] 00:00:00 Test Item Value Reference Range Interpretation Comments GLUCOSE (test code = 2217) 131 MG/DL BUN (test code = 2208) 13 MG/DL CREATININE (test code = 2214) 0.65 MG/DL eGFR AMER. (test code 113 ML/MIN/1.73 = 28009) eGFR NON- AMER. (test 97 ML/MIN/1.73 code = 97180) CALC BUN/CREAT (test code = 20 RATIO [...] (test code = 2219) 23 U/L HEMOGLOBIN [id number] 00:00:00 Test Item Value Reference Range Interpretation Comments HEMOGLOBIN A1c (test code = 76907) 6.8 % HEMOGLOBIN [id number] 00:00:00 Test Item Value Reference Range Interpretation Comments HEMOGLOBIN A1c (test code = 21299) 6.8 % LIPID [id number] 00:00:00 Test Item Value Reference Range Interpretation Comments CHOLESTEROL (test code = 2210) 303 MG/DL TRIGLYCERIDES (test code = 2232) 191 MG/DL HDL CHOLESTEROL (test code = 2220) 61 MG/DL CALC LDL CHOL (test code = 2237) 205 MG/DL RISK RATIO LDL/HDL (test code = 3.36 RATIO 2238) [id number] 00:00:00 Test Item Value Reference Range Interpretation Comments TSH, THIRD GENERATION (test code 0.769 UIU/ML = 2821) [id number] 00:00:00 Test Item Value Reference Range Interpretation Comments TSH, THIRD GENERATION (test code 0.769 UIU/ML = 2821) COMPREHENSIVE METABOLIC [id number] 00:00:00 Test Item Value Reference Range Interpretation Comments GLUCOSE (test code = 2217) 131 MG/DL BUN (test code = 2208) 13 MG/DL CREATININE (test code = 2214) 0.65 MG/DL eGFR AMER. (test code 113 ML/MIN/1.73 = 06512) eGFR NON- AMER. (test 97 ML/MIN/1.73 code = 44489) CALC BUN/CREAT (test code = 20 RATIO [...] (test code = 2219) 23 U/L HEMOGLOBIN [id number] 00:00:00 Test Item Value Reference Range Interpretation Comments HEMOGLOBIN A1c (test code = 80249) 6.8 % HEMOGLOBIN [id number] 00:00:00 Test Item Value Reference Range Interpretation Comments HEMOGLOBIN A1c (test code = 92405) 6.8 % HEMOGLOBIN [id number] 00:00:00 Test Item Value Reference Range Interpretation Comments HEMOGLOBIN A1c (test code = 10629) 6.8 % LIPID [id number] 00:00:00 Test Item Value Reference Range Interpretation Comments CHOLESTEROL (test code = 2210) 303 MG/DL TRIGLYCERIDES (test code = 2232) 191 MG/DL HDL CHOLESTEROL (test code = 2220) 61 MG/DL CALC LDL CHOL (test code = 2237) 205 MG/DL RISK RATIO LDL/HDL (test code = 3.36 RATIO 2238) LIPID [id number] 00:00:00 Test Item Value Reference Range Interpretation Comments CHOLESTEROL (test code = 2210) 303 MG/DL TRIGLYCERIDES (test code = 2232) 191 MG/DL HDL CHOLESTEROL (test code = 2220) 61 MG/DL CALC LDL CHOL (test code = 2237) 205 MG/DL RISK RATIO LDL/HDL (test code = 3.36 RATIO 2238) [id number] 00:00:00 Test Item Value Reference Range Interpretation Comments TSH, THIRD GENERATION (test code 0.769 UIU/ML = 2821) [id number] 00:00:00 Test Item Value Reference Range Interpretation Comments TSH, THIRD GENERATION (test code 0.769 UIU/ML = 2821) [id number] 00:00:00 Test Item Value Reference Range Interpretation Comments TSH, THIRD GENERATION (test code 0.769 UIU/ML = 2821) COMPREHENSIVE METABOLIC [id number] 00:00:00 Test Item Value Reference Range Interpretation Comments GLUCOSE (test code = 2217) 131 MG/DL BUN (test code = 2208) 13 MG/DL CREATININE (test code = 2214) 0.65 MG/DL eGFR AMER. (test code 113 ML/MIN/1.73 = 65257) eGFR NON- AMER. (test 97 ML/MIN/1.73 code = 76914) CALC BUN/CREAT (test code = 20 RATIO [...] code = 2219) 23 U/L COMPREHENSIVE METABOLIC [id number] 00:00:00 Test Item Value Reference Range Interpretation Comments GLUCOSE (test code = 2217) 131 MG/DL BUN (test code = 2208) 13 MG/DL CREATININE (test code = 2214) 0.65 MG/DL eGFR AMER. (test code 113 ML/MIN/1.73 = 30632) eGFR NON- AMER. (test 97 ML/MIN/1.73 code = 90189) CALC BUN/CREAT (test code = 20 RATIO [...] (test code = 2219) 23 U/L HEMOGLOBIN [id number] 00:00:00 Test Item Value Reference Range Interpretation Comments HEMOGLOBIN A1c (test code = 09082) 6.6 % HEMOGLOBIN [id number] 00:00:00 Test Item Value Reference Range Interpretation Comments HEMOGLOBIN A1c (test code = 54341) 6.6 % HEMOGLOBIN [id number] 00:00:00 Test Item Value Reference Range Interpretation Comments HEMOGLOBIN A1c (test code = 09816) 6.6 % LIPID [id number] 00:00:00 Test Item Value Reference Range Interpretation Comments CHOLESTEROL (test code = 2210) 261 MG/DL TRIGLYCERIDES (test code = 2232) 159 MG/DL HDL CHOLESTEROL (test code = 2220) 82 MG/DL CALC LDL CHOL (test code = 2237) 150 MG/DL RISK RATIO LDL/HDL (test code = 1.83 RATIO 2238) LIPID [id number] 00:00:00 Test Item Value Reference Range Interpretation Comments CHOLESTEROL (test code = 2210) 261 MG/DL TRIGLYCERIDES (test code = 2232) 159 MG/DL HDL CHOLESTEROL (test code = 2220) 82 MG/DL CALC LDL CHOL (test code = 2237) 150 MG/DL RISK RATIO LDL/HDL (test code = 1.83 RATIO 2238) COMPREHENSIVE METABOLIC [id number] 00:00:00 Test Item Value Reference Range Interpretation Comments GLUCOSE (test code = 2217) 144 MG/DL BUN (test code = 2208) 15 MG/DL CREATININE (test code = 2214) 0.85 MG/DL eGFR AMER. (test code 87 ML/MIN/1.73 = 08316) eGFR NON- AMER. (test 75 ML/MIN/1.73 code = 60500) CALC BUN/CREAT (test code = 18 RATIO [...] code = 2219) 50 U/L COMPREHENSIVE METABOLIC [id number] 00:00:00 Test Item Value Reference Range Interpretation Comments GLUCOSE (test code = 2217) 144 MG/DL BUN (test code = 2208) 15 MG/DL CREATININE (test code = 2214) 0.85 MG/DL eGFR AMER. (test code 87 ML/MIN/1.73 = 35175) eGFR NON- AMER. (test 75 ML/MIN/1.73 code = 49711) CALC BUN/CREAT (test code = 18 RATIO [...] THYROX. BIND. CAPAC. (test code 1.1 = 46350) T4 (THYROXINE) (test code = 4.3 UG/DL 2819) CORRECTED T4 (FTI) (test code = 3.9 UG/DL 2820) TSH, THIRD GENERATION (test 18.900 UIU/ML code = 2821) THYROID II PROFILE (T3U, T4, T7, TSH)2020-05-23 00:00:00 Test Item Value Reference Range Interpretation Comments T-UPTAKE (test code = 281) 30.2 % THYROX. BIND. CAPAC. (test code 1.1 = 97740) T4 (THYROXINE) (test code = 4.3 UG/DL 2819) CORRECTED T4 (FTI) (test code = 3.9 UG/DL 2820) TSH, THIRD GENERATION (test 18.900 UIU/ML code = 2821) HEMOGLOBIN [id number] 00:00:00 Test Item Value Reference Range Interpretation Comments HEMOGLOBIN A1c (test code = 30382) 6.6 % HEMOGLOBIN [id number] 00:00:00 Test Item Value Reference Range Interpretation Comments HEMOGLOBIN A1c (test code = 55226) 6.6 % LIPID [id number] 00:00:00 Test Item Value Reference Range Interpretation Comments CHOLESTEROL (test code = 2210) 261 MG/DL TRIGLYCERIDES (test code = 2232) 159 MG/DL HDL CHOLESTEROL (test code = 2220) 82 MG/DL CALC LDL CHOL (test code = 2237) 150 MG/DL RISK RATIO LDL/HDL (test code = 1.83 RATIO 2238) COMPREHENSIVE METABOLIC [id number] 00:00:00 Test Item Value Reference Range Interpretation Comments GLUCOSE (test code = 2217) 144 MG/DL BUN (test code = 2208) 15 MG/DL CREATININE (test code = 2214) 0.85 MG/DL eGFR AMER. (test code 87 ML/MIN/1.73 = 84263) eGFR NON- AMER. (test 75 ML/MIN/1.73 code = 24281) CALC BUN/CREAT (test code = 18 RATIO [...] THYROX. BIND. CAPAC. (test code 1.1 = 13581) T4 (THYROXINE) (test code = 4.3 UG/DL 2819) CORRECTED T4 (FTI) (test code = 3.9 UG/DL 2820) TSH, THIRD GENERATION (test 18.900 UIU/ML code = 2821) HEMOGLOBIN [id number] 00:00:00 Test Item Value Reference Range Interpretation Comments HEMOGLOBIN A1c (test code = 97901) 6.6 % HEMOGLOBIN [id number] 00:00:00 Test Item Value Reference Range Interpretation Comments HEMOGLOBIN A1c (test code = 33705) 6.6 % HEMOGLOBIN [id number] 00:00:00 Test Item Value Reference Range Interpretation Comments HEMOGLOBIN A1c (test code = 29128) 6.6 % LIPID [id number] 00:00:00 Test Item Value Reference Range Interpretation Comments CHOLESTEROL (test code = 2210) 261 MG/DL TRIGLYCERIDES (test code = 2232) 159 MG/DL HDL CHOLESTEROL (test code = 2220) 82 MG/DL CALC LDL CHOL (test code = 2237) 150 MG/DL RISK RATIO LDL/HDL (test code = 1.83 RATIO 2238) LIPID [id number] 00:00:00 Test Item Value Reference Range Interpretation Comments CHOLESTEROL (test code = 2210) 261 MG/DL TRIGLYCERIDES (test code = 2232) 159 MG/DL HDL CHOLESTEROL (test code = 2220) 82 MG/DL CALC LDL CHOL (test code = 2237) 150 MG/DL RISK RATIO LDL/HDL (test code = 1.83 RATIO 2238) COMPREHENSIVE METABOLIC [id number] 00:00:00 Test Item Value Reference Range Interpretation Comments GLUCOSE (test code = 2217) 144 MG/DL BUN (test code = 2208) 15 MG/DL CREATININE (test code = 2214) 0.85 MG/DL eGFR AMER. (test code 87 ML/MIN/1.73 = 53034) eGFR NON- AMER. (test 75 ML/MIN/1.73 code = 41827) CALC BUN/CREAT (test code = 18 RATIO [...] code = 2219) 50 U/L COMPREHENSIVE METABOLIC [id number] 00:00:00 Test Item Value Reference Range Interpretation Comments GLUCOSE (test code = 2217) 144 MG/DL BUN (test code = 2208) 15 MG/DL CREATININE (test code = 2214) 0.85 MG/DL eGFR AMER. (test code 87 ML/MIN/1.73 = 54495) eGFR NON- AMER. (test 75 ML/MIN/1.73 code = 73359) CALC BUN/CREAT (test code = 18 RATIO [...] THYROX. BIND. CAPAC. (test code 1.1 = 40853) T4 (THYROXINE) (test code = 4.3 UG/DL 2819) CORRECTED T4 (FTI) (test code = 3.9 UG/DL 2820) TSH, THIRD GENERATION (test 18.900 UIU/ML code = 2821) THYROID II PROFILE (T3U, T4, T7, TSH)2020-05-23 00:00:00 Test Item Value Reference Range Interpretation Comments T-UPTAKE (test code = 2817) 30.2 % THYROX. BIND. CAPAC. (test code 1.1 = 98973) T4 (THYROXINE) (test code = 4.3 UG/DL 2819) CORRECTED T4 (FTI) (test code = 3.9 UG/DL 2820) TSH, THIRD GENERATION (test 18.900 UIU/ML code = 2821) HEMOGLOBIN [id number] 00:00:00 Test Item Value Reference Range Interpretation Comments HEMOGLOBIN A1c (test code = 48353) 6.7 % HEMOGLOBIN [id number] 00:00:00 Test Item Value Reference Range Interpretation Comments HEMOGLOBIN A1c (test code = 33568) 6.7 % HEMOGLOBIN [id number] 00:00:00 Test Item Value Reference Range Interpretation Comments HEMOGLOBIN A1c (test code = 22286) 6.7 % LIPID [id number] 00:00:00 Test Item Value Reference Range Interpretation Comments CHOLESTEROL (test code = 2210) 267 MG/DL TRIGLYCERIDES (test code = 2232) 137 MG/DL HDL CHOLESTEROL (test code = 2220) 48 MG/DL CALC LDL CHOL (test code = 2237) 192 MG/DL RISK RATIO LDL/HDL (test code = 4.00 RATIO 2238) LIPID [id number] 00:00:00 Test Item Value Reference Range Interpretation Comments CHOLESTEROL (test code = 2210) 267 MG/DL TRIGLYCERIDES (test code = 2232) 137 MG/DL HDL CHOLESTEROL (test code = 2220) 48 MG/DL CALC LDL CHOL (test code = 2237) 192 MG/DL RISK RATIO LDL/HDL (test code = 4.00 RATIO 2238) COMPREHENSIVE METABOLIC [id number] 00:00:00 Test Item Value Reference Range Interpretation Comments GLUCOSE (test code = 2217) 155 MG/DL BUN (test code = 2208) 14 MG/DL CREATININE (test code = 2214) 0.52 MG/DL eGFR AMER. (test code 122 ML/MIN/1.73 = 48626) eGFR NON- AMER. (test 105 ML/MIN/1.73 code = 51930) CALC BUN/CREAT (test code = 27 RATIO [...] code = 2219) 27 U/L COMPREHENSIVE METABOLIC [id number] 00:00:00 Test Item Value Reference Range Interpretation Comments GLUCOSE (test code = 2217) 155 MG/DL BUN (test code = 2208) 14 MG/DL CREATININE (test code = 2214) 0.52 MG/DL eGFR AMER. (test code 122 ML/MIN/1.73 = 50068) eGFR NON- AMER. (test 105 ML/MIN/1.73 code = 75073) CALC BUN/CREAT (test code = 27 RATIO [...] THYROX. BIND. CAPAC. (test code 1.0 = 56013) T4 (THYROXINE) (test code = 4.7 UG/DL 2819) CORRECTED T4 (FTI) (test code = 4.7 UG/DL 2820) TSH, THIRD GENERATION (test code 0.201 UIU/ML = 2821) THYROID II PROFILE (T3U, T4, T7, TSH)2019 00:00:00 Test Item Value Reference Range Interpretation Comments T-UPTAKE (test code = 7) 33.1 % THYROX. BIND. CAPAC. (test code 1.0 = 20280) T4 (THYROXINE) (test code = 4.7 UG/DL 2819) CORRECTED T4 (FTI) (test code = 4.7 UG/DL 2820) TSH, THIRD GENERATION (test code 0.201 UIU/ML = 2821) HEMOGLOBIN [id number] 00:00:00 Test Item Value Reference Range Interpretation Comments HEMOGLOBIN A1c (test code = 17681) 6.7 % HEMOGLOBIN [id number] 00:00:00 Test Item Value Reference Range Interpretation Comments HEMOGLOBIN A1c (test code = 26650) 6.7 % LIPID [id number] 00:00:00 Test Item Value Reference Range Interpretation Comments CHOLESTEROL (test code = 2210) 267 MG/DL TRIGLYCERIDES (test code = 2232) 137 MG/DL HDL CHOLESTEROL (test code = 2220) 48 MG/DL CALC LDL CHOL (test code = 2237) 192 MG/DL RISK RATIO LDL/HDL (test code = 4.00 RATIO 2238) COMPREHENSIVE METABOLIC [id number] 00:00:00 Test Item Value Reference Range Interpretation Comments GLUCOSE (test code = 2217) 155 MG/DL BUN (test code = 2208) 14 MG/DL CREATININE (test code = 2214) 0.52 MG/DL eGFR AMER. (test code 122 ML/MIN/1.73 = 57901) eGFR NON- AMER. (test 105 ML/MIN/1.73 code = 27635) CALC BUN/CREAT (test code = 27 RATIO [...] THYROX. BIND. CAPAC. (test code 1.0 = 33386) T4 (THYROXINE) (test code = 4.7 UG/DL 2819) CORRECTED T4 (FTI) (test code = 4.7 UG/DL 2820) TSH, THIRD GENERATION (test code 0.201 UIU/ML = 2821) HEMOGLOBIN [id number] 00:00:00 Test Item Value Reference Range Interpretation Comments HEMOGLOBIN A1c (test code = 59004) 6.7 % HEMOGLOBIN [id number] 00:00:00 Test Item Value Reference Range Interpretation Comments HEMOGLOBIN A1c (test code = 77842) 6.7 % HEMOGLOBIN [id number] 00:00:00 Test Item Value Reference Range Interpretation Comments HEMOGLOBIN A1c (test code = 47975) 6.7 % LIPID [id number] 00:00:00 Test Item Value Reference Range Interpretation Comments CHOLESTEROL (test code = 2210) 267 MG/DL TRIGLYCERIDES (test code = 2232) 137 MG/DL HDL CHOLESTEROL (test code = 2220) 48 MG/DL CALC LDL CHOL (test code = 2237) 192 MG/DL RISK RATIO LDL/HDL (test code = 4.00 RATIO 2238) LIPID [id number] 00:00:00 Test Item Value Reference Range Interpretation Comments CHOLESTEROL (test code = 2210) 267 MG/DL TRIGLYCERIDES (test code = 2232) 137 MG/DL HDL CHOLESTEROL (test code = 2220) 48 MG/DL CALC LDL CHOL (test code = 2237) 192 MG/DL RISK RATIO LDL/HDL (test code = 4.00 RATIO 2238) COMPREHENSIVE METABOLIC [id number] 00:00:00 Test Item Value Reference Range Interpretation Comments GLUCOSE (test code = 2217) 155 MG/DL BUN (test code = 2208) 14 MG/DL CREATININE (test code = 2214) 0.52 MG/DL eGFR AMER. (test code 122 ML/MIN/1.73 = 95983) eGFR NON- AMER. (test 105 ML/MIN/1.73 code = 15990) CALC BUN/CREAT (test code = 27 RATIO [...] code = 2219) 27 U/L COMPREHENSIVE METABOLIC [id number] 00:00:00 Test Item Value Reference Range Interpretation Comments GLUCOSE (test code = 2217) 155 MG/DL BUN (test code = 2208) 14 MG/DL CREATININE (test code = 2214) 0.52 MG/DL eGFR AMER. (test code 122 ML/MIN/1.73 = 96046) eGFR NON- AMER. (test 105 ML/MIN/1.73 code = 30233) CALC BUN/CREAT (test code = 27 RATIO [...] THYROX. BIND. CAPAC. (test code 1.0 = 28145) T4 (THYROXINE) (test code = 4.7 UG/DL 2819) CORRECTED T4 (FTI) (test code = 4.7 UG/DL 2820) TSH, THIRD GENERATION (test code 0.201 UIU/ML = 2821) THYROID II PROFILE (T3U, T4, T7, TSH)2019 00:00:00 Test Item Value Reference Range Interpretation Comments T-UPTAKE (test code = 2817) 33.1 % THYROX. BIND. CAPAC. (test code 1.0 = 18534) T4 (THYROXINE) (test code = 4.7 UG/DL 2819) CORRECTED T4 (FTI) (test code = 4.7 UG/DL 2820) TSH, THIRD GENERATION (test code 0.201 UIU/ML = 2821) SARS-CoV-2 (COVID-19) by RT-PCR (HIGH RISK)2019-09-18 00:00:00 Test Item Value Reference Range Interpretation Comments SARS-CoV-2 INTERPRETATION (test NEGATIVE code = 99252) SOURCE (test code = 35979) NOT SPECIFIED SARS-CoV-2 (COVID-19) by RT-PCR (HIGH RISK)2019-09-18 00:00:00 Test Item Value Reference Range Interpretation Comments SARS-CoV-2 INTERPRETATION (test NEGATIVE code = 82709) SOURCE (test code = 56386) NOT SPECIFIED SARS-CoV-2 (COVID-19) by RT-PCR (HIGH RISK)2019-09-18 00:00:00 Test Item Value Reference Range Interpretation Comments SARS-CoV-2 INTERPRETATION (test NEGATIVE code = 65252) SOURCE (test code = 66630) NOT SPECIFIED SARS-CoV-2 (COVID-19) by RT-PCR (HIGH RISK)2019-09-18 00:00:00 Test Item Value Reference Range Interpretation Comments SARS-CoV-2 INTERPRETATION (test NEGATIVE code = 00880) SOURCE (test code = 07726) NOT SPECIFIED SARS-CoV-2 (COVID-19) by RT-PCR (HIGH RISK)2019-09-18 00:00:00 Test Item Value Reference Range Interpretation Comments SARS-CoV-2 INTERPRETATION (test NEGATIVE code = 41264) SOURCE (test code = 05583) NOT SPECIFIED [id number] 00:00:00 Test Item Value Reference Range Interpretation Comments TSH, THIRD GENERATION (test code 2.490 UIU/ML = 2821) [id number] 00:00:00 Test Item Value Reference Range Interpretation Comments TSH, THIRD GENERATION (test code 2.490 UIU/ML = 2821) [id number] 00:00:00 Test Item Value Reference Range Interpretation Comments TSH, THIRD GENERATION (test code 2.490 UIU/ML = 2821) HEMOGLOBIN [id number] 00:00:00 Test Item Value Reference Range Interpretation Comments HEMOGLOBIN A1c (test code = 39822) 6.4 % HEMOGLOBIN [id number] 00:00:00 Test Item Value Reference Range Interpretation Comments HEMOGLOBIN A1c (test code = 68842) 6.4 % HEMOGLOBIN [id number] 00:00:00 Test Item Value Reference Range Interpretation Comments HEMOGLOBIN A1c (test code = 60885) 6.4 % COMPREHENSIVE METABOLIC [id number] 00:00:00 Test Item Value Reference Range Interpretation Comments GLUCOSE (test code = 2217) 206 MG/DL BUN (test code = 2208) 23 MG/DL CREATININE (test code = 2214) 0.67 MG/DL eGFR AMER. (test code 112 ML/MIN/1.73 = 36184) eGFR NON- AMER. (test 97 ML/MIN/1.73 code = 14906) CALC BUN/CREAT (test code = 34 RATIO [...] code = 2219) 25 U/L COMPREHENSIVE METABOLIC [id number] 00:00:00 Test Item Value Reference Range Interpretation Comments GLUCOSE (test code = 2217) 206 MG/DL BUN (test code = 2208) 23 MG/DL CREATININE (test code = 2214) 0.67 MG/DL eGFR AMER. (test code 112 ML/MIN/1.73 = 45295) eGFR NON- AMER. (test 97 ML/MIN/1.73 code = 63786) CALC BUN/CREAT (test code = 34 RATIO [...] ALT (test code = 2219) 25 U/L [id number] 00:00:00 Test Item Value Reference Range Interpretation Comments TSH, THIRD GENERATION (test code 2.490 UIU/ML = 2821) [id number] 00:00:00 Test Item Value Reference Range Interpretation Comments TSH, THIRD GENERATION (test code 2.490 UIU/ML = 2821) HEMOGLOBIN [id number] 00:00:00 Test Item Value Reference Range Interpretation Comments HEMOGLOBIN A1c (test code = 17893) 6.4 % HEMOGLOBIN [id number] 00:00:00 Test Item Value Reference Range Interpretation Comments HEMOGLOBIN A1c (test code = 27769) 6.4 % COMPREHENSIVE METABOLIC [id number] 00:00:00 Test Item Value Reference Range Interpretation Comments GLUCOSE (test code = 2217) 206 MG/DL BUN (test code = 2208) 23 MG/DL CREATININE (test code = 2214) 0.67 MG/DL eGFR AMER. (test code 112 ML/MIN/1.73 = 70952) eGFR NON- AMER. (test 97 ML/MIN/1.73 code = 31376) CALC BUN/CREAT (test code = 34 RATIO [...] ALT (test code = 2219) 25 U/L [id number] 00:00:00 Test Item Value Reference Range Interpretation Comments TSH, THIRD GENERATION (test code 2.490 UIU/ML = 2821) [id number] 00:00:00 Test Item Value Reference Range Interpretation Comments TSH, THIRD GENERATION (test code 2.490 UIU/ML = 2821) [id number] 00:00:00 Test Item Value Reference Range Interpretation Comments TSH, THIRD GENERATION (test code 2.490 UIU/ML = 2821) HEMOGLOBIN [id number] 00:00:00 Test Item Value Reference Range Interpretation Comments HEMOGLOBIN A1c (test code = 63196) 6.4 % HEMOGLOBIN [id number] 00:00:00 Test Item Value Reference Range Interpretation Comments HEMOGLOBIN A1c (test code = 28827) 6.4 % HEMOGLOBIN [id number] 00:00:00 Test Item Value Reference Range Interpretation Comments HEMOGLOBIN A1c (test code = 68228) 6.4 % COMPREHENSIVE METABOLIC [id number] 00:00:00 Test Item Value Reference Range Interpretation Comments GLUCOSE (test code = 2217) 206 MG/DL BUN (test code = 2208) 23 MG/DL CREATININE (test code = 2214) 0.67 MG/DL eGFR AMER. (test code 112 ML/MIN/1.73 = 08933) eGFR NON- AMER. (test 97 ML/MIN/1.73 code = 03877) CALC BUN/CREAT (test code = 34 RATIO [...] code = 2219) 25 U/L COMPREHENSIVE METABOLIC [id number] 00:00:00 Test Item Value Reference Range Interpretation Comments GLUCOSE (test code = 2217) 206 MG/DL BUN (test code = 2208) 23 MG/DL CREATININE (test code = 2214) 0.67 MG/DL eGFR AMER. (test code 112 ML/MIN/1.73 = 22344) eGFR NON- AMER. (test 97 ML/MIN/1.73 code = 35951) CALC BUN/CREAT (test code = 34 RATIO [...] = 2219) 25 U/L VAGINAL PATHOGENS DNA [id number] 00:00:00 Test Item Value Reference Range Interpretation Comments MARK SPECIES (test code = 53840) NEGATIVE G. VAGINALIS (test code = 79383) NEGATIVE T. VAGINALIS (test code = 52740) NEGATIVE VAGINAL PATHOGENS DNA [id number] 00:00:00 Test Item Value Reference Range Interpretation Comments MARK SPECIES (test code = 58628) NEGATIVE G. VAGINALIS (test code = 70545) NEGATIVE T. VAGINALIS (test code = 11225) NEGATIVE VAGINAL PATHOGENS DNA [id number] 00:00:00 Test Item Value Reference Range Interpretation Comments MARK SPECIES (test code = 90962) NEGATIVE G. VAGINALIS (test code = 66474) NEGATIVE T. VAGINALIS (test code = 89260) NEGATIVE VAGINAL PATHOGENS DNA [id number] 00:00:00 Test Item Value Reference Range Interpretation Comments MARK SPECIES (test code = 94182) NEGATIVE G. VAGINALIS (test code = 96023) NEGATIVE T. VAGINALIS (test code = 69038) NEGATIVE VAGINAL PATHOGENS DNA [id number] 00:00:00 Test Item Value Reference Range Interpretation Comments MARK SPECIES (test code = ) NEGATIVE G. VAGINALIS (test code = ) NEGATIVE T. VAGINALIS (test code = ) NEGATIVE HEMOGLOBIN A1c [ADDED]2018-12-01 00:00:00 Test Item Value Reference Range Interpretation Comments HEMOGLOBIN A1c (test code = 35686) 6.7 % HEMOGLOBIN A1c [ADDED]2018-12-01 00:00:00 Test Item Value Reference Range Interpretation Comments HEMOGLOBIN A1c (test code = 96818) 6.7 % HEMOGLOBIN A1c [ADDED]2018-12-01 00:00:00 Test Item Value Reference Range Interpretation Comments HEMOGLOBIN A1c (test code = 01188) 6.7 % COMPREHENSIVE METABOLIC PANEL [ADDED]2018-12-01 00:00:00 Test Item Value Reference Range Interpretation Comments GLUCOSE (test code = 2217) 136 MG/DL BUN (test code = 2208) 15 MG/DL CREATININE (test code = 2214) 0.64 MG/DL eGFR AMER. (test code 115 ML/MIN/1.73 = 11405) eGFR NON- AMER. (test 99 ML/MIN/1.73 code = 92901) CALC BUN/CREAT (test code = 23 RATIO [...] eGFR AMER. (test code 115 ML/MIN/1.73 = 07538) eGFR NON- AMER. (test 99 ML/MIN/1.73 code = 96754) CALC BUN/CREAT (test code = 23 RATIO [...] Interpretation Comments HEMOGLOBIN A1c (test code = 02405) 6.7 % HEMOGLOBIN A1c [ADDED]2018-12-01 00:00:00 Test Item Value Reference Range Interpretation Comments HEMOGLOBIN A1c (test code = 70158) 6.7 % COMPREHENSIVE METABOLIC PANEL [ADDED]2018-12-01 00:00:00 Test Item Value Reference Range Interpretation Comments GLUCOSE (test code = 2217) 136 MG/DL BUN (test code = 2208) 15 MG/DL CREATININE (test code = 2214) 0.64 MG/DL eGFR AMER. (test code 115 ML/MIN/1.73 = 81878) eGFR NON- AMER. (test 99 ML/MIN/1.73 code = 16337) CALC BUN/CREAT (test code = 23 RATIO [...] Interpretation Comments HEMOGLOBIN A1c (test code = 51660) 6.7 % HEMOGLOBIN A1c [ADDED]2018-12-01 00:00:00 Test Item Value Reference Range Interpretation Comments HEMOGLOBIN A1c (test code = 42869) 6.7 % HEMOGLOBIN A1c [ADDED]2018-12-01 00:00:00 Test Item Value Reference Range Interpretation Comments HEMOGLOBIN A1c (test code = 41705) 6.7 % COMPREHENSIVE METABOLIC PANEL [ADDED]2018-12-01 00:00:00 Test Item Value Reference Range Interpretation Comments GLUCOSE (test code = 2217) 136 MG/DL BUN (test code = 2208) 15 MG/DL CREATININE (test code = 2214) 0.64 MG/DL eGFR AMER. (test code 115 ML/MIN/1.73 = 72037) eGFR NON- AMER. (test 99 ML/MIN/1.73 code = 55179) CALC BUN/CREAT (test code = 23 RATIO [...] eGFR AMER. (test code 115 ML/MIN/1.73 = 18660) eGFR NON- AMER. (test 99 ML/MIN/1.73 code = 57365) CALC BUN/CREAT (test code = 23 RATIO 2235) SODIUM (test code = 2231) 142 MEQ/L POTASSIUM (test code = 2228) 4.7 MEQ/L CHLORIDE (test code = 2215) 97 MEQ/L CARBON DIOXIDE (test code = 30 MEQ/L 2206) CALCIUM (test code = 2209) 10.1 MG/DL PROTEIN, TOTAL (test code = 7.7 G/DL 9) ALBUMIN (test code = 2201) [...] code 1.280 UIU/ML = 2821) CBC W/AUTO [id number] 00:00:00 Test Item Value Reference Range Interpretation [...] code = 1015) 346 K/UL CBC W/AUTO [id number] 00:00:00 Test Item Value Reference Range Interpretation [...] code = 1015) 346 K/UL CBC W/AUTO [id number] 00:00:00 Test Item Value Reference Range Interpretation [...] (test code = 1015) 346 K/UL HEMOGLOBIN [id number] 00:00:00 Test Item Value Reference Range Interpretation Comments HEMOGLOBIN A1c (test code = 26000) 5.9 % HEMOGLOBIN [id number] 00:00:00 Test Item Value Reference Range Interpretation Comments HEMOGLOBIN A1c (test code = 70249) 5.9 % HEMOGLOBIN [id number] 00:00:00 Test Item Value Reference Range Interpretation Comments HEMOGLOBIN A1c (test code = 23274) 5.9 % LIPID [id number] 00:00:00 Test Item Value Reference Range Interpretation Comments CHOLESTEROL (test code = 2210) 318 MG/DL TRIGLYCERIDES (test code = 2232) 263 MG/DL HDL CHOLESTEROL (test code = 2220) 51 MG/DL CALC LDL CHOL (test code = 2237) 214 MG/DL RISK RATIO LDL/HDL (test code = 4.20 RATIO 2238) LIPID [id number] 00:00:00 Test Item Value Reference Range Interpretation Comments CHOLESTEROL (test code = 2210) 318 MG/DL TRIGLYCERIDES (test code = 2232) 263 MG/DL HDL CHOLESTEROL (test code = 2220) 51 MG/DL CALC LDL CHOL (test code = 2237) 214 MG/DL RISK RATIO LDL/HDL (test code = 4.20 RATIO 2238) COMPREHENSIVE METABOLIC [id number] 00:00:00 Test Item Value Reference Range Interpretation Comments GLUCOSE (test code = 2217) 113 MG/DL BUN (test code = 2208) 18 MG/DL CREATININE (test code = 2214) 0.70 MG/DL eGFR AMER. (test code 111 ML/MIN/1.73 = 91556) eGFR NON- AMER. (test 96 ML/MIN/1.73 code = 41056) CALC BUN/CREAT (test code = 26 RATIO [...] code = 2219) 31 U/L COMPREHENSIVE METABOLIC [id number] 00:00:00 Test Item Value Reference Range Interpretation Comments GLUCOSE (test code = 2217) 113 MG/DL BUN (test code = 2208) 18 MG/DL CREATININE (test code = 2214) 0.70 MG/DL eGFR AMER. (test code 111 ML/MIN/1.73 = 18412) eGFR NON- AMER. (test 96 ML/MIN/1.73 code = 55635) CALC BUN/CREAT (test code = 26 RATIO [...] ALT (test code = 2219) 31 U/L [id number] 00:00:00 Test Item Value Reference Range Interpretation Comments TSH, THIRD GENERATION (test code 2.520 UIU/ML = 2821) [id number] 00:00:00 Test Item Value Reference Range Interpretation Comments TSH, THIRD GENERATION (test code 2.520 UIU/ML = 2821) [id number] 00:00:00 Test Item Value Reference Range Interpretation Comments TSH, THIRD GENERATION (test code 2.520 UIU/ML = 2821) CBC W/AUTO [id number] 00:00:00 Test Item Value Reference Range Interpretation [...] code = 1015) 346 K/UL CBC W/AUTO [id number] 00:00:00 Test Item Value Reference Range Interpretation [...] (test code = 1015) 346 K/UL HEMOGLOBIN [id number] 00:00:00 Test Item Value Reference Range Interpretation Comments HEMOGLOBIN A1c (test code = 68270) 5.9 % HEMOGLOBIN [id number] 00:00:00 Test Item Value Reference Range Interpretation Comments HEMOGLOBIN A1c (test code = 32648) 5.9 % LIPID [id number] 00:00:00 Test Item Value Reference Range Interpretation Comments CHOLESTEROL (test code = 2210) 318 MG/DL TRIGLYCERIDES (test code = 2232) 263 MG/DL HDL CHOLESTEROL (test code = 2220) 51 MG/DL CALC LDL CHOL (test code = 2237) 214 MG/DL RISK RATIO LDL/HDL (test code = 4.20 RATIO 2238) COMPREHENSIVE METABOLIC [id number] 00:00:00 Test Item Value Reference Range Interpretation Comments GLUCOSE (test code = 2217) 113 MG/DL BUN (test code = 2208) 18 MG/DL CREATININE (test code = 2214) 0.70 MG/DL eGFR AMER. (test code 111 ML/MIN/1.73 = 74320) eGFR NON- AMER. (test 96 ML/MIN/1.73 code = 64597) CALC BUN/CREAT (test code = 26 RATIO [...] ALT (test code = 2219) 31 U/L [id number] 00:00:00 Test Item Value Reference Range Interpretation Comments TSH, THIRD GENERATION (test code 2.520 UIU/ML = 2821) [id number] 00:00:00 Test Item Value Reference Range Interpretation Comments TSH, THIRD GENERATION (test code 2.520 UIU/ML = 2821) CBC W/AUTO [id number] 00:00:00 Test Item Value Reference Range Interpretation [...] code = 1015) 346 K/UL CBC W/AUTO [id number] 00:00:00 Test Item Value Reference Range Interpretation [...] code = 1015) 346 K/UL CBC W/AUTO [id number] 00:00:00 Test Item Value Reference Range Interpretation [...] (test code = 1015) 346 K/UL HEMOGLOBIN [id number] 00:00:00 Test Item Value Reference Range Interpretation Comments HEMOGLOBIN A1c (test code = 49459) 5.9 % HEMOGLOBIN [id number] 00:00:00 Test Item Value Reference Range Interpretation Comments HEMOGLOBIN A1c (test code = 95870) 5.9 % HEMOGLOBIN [id number] 00:00:00 Test Item Value Reference Range Interpretation Comments HEMOGLOBIN A1c (test code = 09147) 5.9 % LIPID [id number] 00:00:00 Test Item Value Reference Range Interpretation Comments CHOLESTEROL (test code = 2210) 318 MG/DL TRIGLYCERIDES (test code = 2232) 263 MG/DL HDL CHOLESTEROL (test code = 2220) 51 MG/DL CALC LDL CHOL (test code = 2237) 214 MG/DL RISK RATIO LDL/HDL (test code = 4.20 RATIO 2238) LIPID [id number] 00:00:00 Test Item Value Reference Range Interpretation Comments CHOLESTEROL (test code = 2210) 318 MG/DL TRIGLYCERIDES (test code = 2232) 263 MG/DL HDL CHOLESTEROL (test code = 2220) 51 MG/DL CALC LDL CHOL (test code = 2237) 214 MG/DL RISK RATIO LDL/HDL (test code = 4.20 RATIO 2238) COMPREHENSIVE METABOLIC [id number] 00:00:00 Test Item Value Reference Range Interpretation Comments GLUCOSE (test code = 2217) 113 MG/DL BUN (test code = 2208) 18 MG/DL CREATININE (test code = 2214) 0.70 MG/DL eGFR AMER. (test code 111 ML/MIN/1.73 = 80160) eGFR NON- AMER. (test 96 ML/MIN/1.73 code = 85844) CALC BUN/CREAT (test code = 26 RATIO [...] code = 2219) 31 U/L COMPREHENSIVE METABOLIC [id number] 00:00:00 Test Item Value Reference Range Interpretation Comments GLUCOSE (test code = 2217) 113 MG/DL BUN (test code = 2208) 18 MG/DL CREATININE (test code = 2214) 0.70 MG/DL eGFR AMER. (test code 111 ML/MIN/1.73 = 01191) eGFR NON- AMER. (test 96 ML/MIN/1.73 code = 35144) CALC BUN/CREAT (test code = 26 RATIO [...] ALT (test code = 2219) 31 U/L [id number] 00:00:00 Test Item Value Reference Range Interpretation Comments TSH, THIRD GENERATION (test code 2.520 UIU/ML = 2821) [id number] 00:00:00 Test Item Value Reference Range Interpretation Comments TSH, THIRD GENERATION (test code 2.520 UIU/ML = 2821) [id number] 00:00:00 Test Item Value Reference Range Interpretation Comments TSH, THIRD GENERATION (test code 2.520 UIU/ML = 2821) CULTURE, [id number] 00:00:00 Test Item Value Reference Range Interpretation Comments CULTURE, URINE (test SPECIMEN NUMBER: code = 87380) [id number] CULTURE, [id number] 00:00:00 Test Item Value Reference Range Interpretation Comments CULTURE, URINE (test SPECIMEN NUMBER: code = 79514) [id number] CULTURE, [id number] 00:00:00 Test Item Value Reference Range Interpretation Comments CULTURE, URINE (test SPECIMEN NUMBER: code = 70094) [id number] CULTURE, [id number] 00:00:00 Test Item Value Reference Range Interpretation Comments CULTURE, URINE (test SPECIMEN NUMBER: code = 90356) [id number] CULTURE, [id number] 00:00:00 Test Item Value Reference Range Interpretation Comments CULTURE, URINE (test SPECIMEN NUMBER: code = 05294) [id number] CULTURE, [id number] 00:00:00 Test Item Value Reference Range Interpretation Comments CULTURE, URINE (test SPECIMEN NUMBER: code = 17403) [id number] CULTURE, [id number] 00:00:00 Test Item Value Reference Range Interpretation Comments CULTURE, URINE (test SPECIMEN NUMBER: code = 54397) [id number] CULTURE, [id number] 00:00:00 Test Item Value Reference Range Interpretation Comments CULTURE, URINE (test SPECIMEN NUMBER: code = 99076) [id number] CULTURE, [id number] 00:00:00 Test Item Value Reference Range Interpretation Comments CULTURE, URINE (test SPECIMEN NUMBER: code = 46772) [id number] CULTURE, [id number] 00:00:00 Test Item Value Reference Range Interpretation Comments CULTURE, URINE (test SPECIMEN NUMBER: code = 99442) [id number] BASIC METABOLIC [id number] 00:00:00 Test Item Value Reference Range Interpretation Comments GLUCOSE (test code = 2217) 135 MG/DL BUN (test code = 2208) 25 MG/DL CREATININE (test code = 2214) 0.76 MG/DL eGFR AMER. (test code 101 ML/MIN/1.73 = 54000) eGFR NON- AMER. (test 87 ML/MIN/1.73 code = 89768) SODIUM (test code = 2231) 139 MEQ/L POTASSIUM (test code = 2228) 4.7 MEQ/L CHLORIDE (test code = 2215) 99 MEQ/L CARBON DIOXIDE (test code = 26 MEQ/L 2206) CALCIUM (test code = 2209) 9.4 MG/DL BASIC METABOLIC [id number] 00:00:00 Test Item Value Reference Range Interpretation Comments GLUCOSE (test code = 2217) 135 MG/DL BUN (test code = 2208) 25 MG/DL CREATININE (test code = 2214) 0.76 MG/DL eGFR AMER. (test code 101 ML/MIN/1.73 = 38332) eGFR NON- AMER. (test 87 ML/MIN/1.73 code = 48452) SODIUM (test code = 2231) 139 MEQ/L POTASSIUM (test code = 2228) 4.7 MEQ/L CHLORIDE (test code = 2215) 99 MEQ/L CARBON DIOXIDE (test code = 26 MEQ/L 2206) CALCIUM (test code = 2209) 9.4 MG/DL LIPID [id number] 00:00:00 Test Item Value Reference Range Interpretation Comments CHOLESTEROL (test code = 2210) 262 MG/DL TRIGLYCERIDES (test code = 2232) 300 MG/DL HDL CHOLESTEROL (test code = 2220) 36 MG/DL CALC LDL CHOL (test code = 2237) 166 MG/DL RISK RATIO LDL/HDL (test code = 4.61 RATIO 2238) LIPID [id number] 00:00:00 Test Item Value Reference Range Interpretation Comments CHOLESTEROL (test code = 2210) 262 MG/DL TRIGLYCERIDES (test code = 2232) 300 MG/DL HDL CHOLESTEROL (test code = 2220) 36 MG/DL CALC LDL CHOL (test code = 2237) 166 MG/DL RISK RATIO LDL/HDL (test code = 4.61 RATIO 2238) HEMOGLOBIN [id number] 00:00:00 Test Item Value Reference Range Interpretation Comments HEMOGLOBIN A1c (test code = 02314) 6.2 % HEMOGLOBIN [id number] 00:00:00 Test Item Value Reference Range Interpretation Comments HEMOGLOBIN A1c (test code = 44885) 6.2 % HEMOGLOBIN [id number] 00:00:00 Test Item Value Reference Range Interpretation Comments HEMOGLOBIN A1c (test code = 05103) 6.2 % [id number] 00:00:00 Test Item Value Reference Range Interpretation Comments TSH, THIRD GENERATION (test code 0.988 UIU/ML = 2821) [id number] 00:00:00 Test Item Value Reference Range Interpretation Comments TSH, THIRD GENERATION (test code 0.988 UIU/ML = 2821) [id number] 00:00:00 Test Item Value Reference Range Interpretation Comments TSH, THIRD GENERATION (test code 0.988 UIU/ML = 2821) BASIC METABOLIC [id number] 00:00:00 Test Item Value Reference Range Interpretation Comments GLUCOSE (test code = 2217) 135 MG/DL BUN (test code = 2208) 25 MG/DL CREATININE (test code = 2214) 0.76 MG/DL eGFR AMER. (test code 101 ML/MIN/1.73 = 60961) eGFR NON- AMER. (test 87 ML/MIN/1.73 code = 07324) SODIUM (test code = 2231) 139 MEQ/L POTASSIUM (test code = 2228) 4.7 MEQ/L CHLORIDE (test code = 2215) 99 MEQ/L CARBON DIOXIDE (test code = 26 MEQ/L 2205) CALCIUM (test code = 2209) 9.4 MG/DL LIPID [id number] 00:00:00 Test Item Value Reference Range Interpretation Comments CHOLESTEROL (test code = 2210) 262 MG/DL TRIGLYCERIDES (test code = 2232) 300 MG/DL HDL CHOLESTEROL (test code = 2220) 36 MG/DL CALC LDL CHOL (test code = 2237) 166 MG/DL RISK RATIO LDL/HDL (test code = 4.61 RATIO 2238) HEMOGLOBIN [id number] 00:00:00 Test Item Value Reference Range Interpretation Comments HEMOGLOBIN A1c (test code = 42658) 6.2 % HEMOGLOBIN [id number] 00:00:00 Test Item Value Reference Range Interpretation Comments HEMOGLOBIN A1c (test code = 23589) 6.2 % [id number] 00:00:00 Test Item Value Reference Range Interpretation Comments TSH, THIRD GENERATION (test code 0.988 UIU/ML = 2821) [id number] 00:00:00 Test Item Value Reference Range Interpretation Comments TSH, THIRD GENERATION (test code 0.988 UIU/ML = 2821) BASIC METABOLIC [id number] 00:00:00 Test Item Value Reference Range Interpretation Comments GLUCOSE (test code = 2217) 135 MG/DL BUN (test code = 2208) 25 MG/DL CREATININE (test code = 2214) 0.76 MG/DL eGFR AMER. (test code 101 ML/MIN/1.73 = 47178) eGFR NON- AMER. (test 87 ML/MIN/1.73 code = 07567) SODIUM (test code = 2231) 139 MEQ/L POTASSIUM (test code = 2228) 4.7 MEQ/L CHLORIDE (test code = 2215) 99 MEQ/L CARBON DIOXIDE (test code = 26 MEQ/L 2206) CALCIUM (test code = 2209) 9.4 MG/DL BASIC METABOLIC [id number] 00:00:00 Test Item Value Reference Range Interpretation Comments GLUCOSE (test code = 2217) 135 MG/DL BUN (test code = 2208) 25 MG/DL CREATININE (test code = 2214) 0.76 MG/DL eGFR AMER. (test code 101 ML/MIN/1.73 = 51423) eGFR NON- AMER. (test 87 ML/MIN/1.73 code = 81674) SODIUM (test code = 2231) 139 MEQ/L POTASSIUM (test code = 2228) 4.7 MEQ/L CHLORIDE (test code = 2215) 99 MEQ/L CARBON DIOXIDE (test code = 26 MEQ/L 2206) CALCIUM (test code = 2209) 9.4 MG/DL LIPID [id number] 00:00:00 Test Item Value Reference Range Interpretation Comments CHOLESTEROL (test code = 2210) 262 MG/DL TRIGLYCERIDES (test code = 2232) 300 MG/DL HDL CHOLESTEROL (test code = 2220) 36 MG/DL CALC LDL CHOL (test code = 2237) 166 MG/DL RISK RATIO LDL/HDL (test code = 4.61 RATIO 2238) LIPID [id number] 00:00:00 Test Item Value Reference Range Interpretation Comments CHOLESTEROL (test code = 2210) 262 MG/DL TRIGLYCERIDES (test code = 2232) 300 MG/DL HDL CHOLESTEROL (test code = 2220) 36 MG/DL CALC LDL CHOL (test code = 2237) 166 MG/DL RISK RATIO LDL/HDL (test code = 4.61 RATIO 2238) HEMOGLOBIN [id number] 00:00:00 Test Item Value Reference Range Interpretation Comments HEMOGLOBIN A1c (test code = 75903) 6.2 % HEMOGLOBIN [id number] 00:00:00 Test Item Value Reference Range Interpretation Comments HEMOGLOBIN A1c (test code = 60689) 6.2 % HEMOGLOBIN [id number] 00:00:00 Test Item Value Reference Range Interpretation Comments HEMOGLOBIN A1c (test code = 67306) 6.2 % [id number] 00:00:00 Test Item Value Reference Range Interpretation Comments TSH, THIRD GENERATION (test code 0.988 UIU/ML = 2821) [id number] 00:00:00 Test Item Value Reference Range Interpretation Comments TSH, THIRD GENERATION (test code 0.988 UIU/ML = 2821) [id number] 00:00:00 Test Item Value Reference Range Interpretation Comments TSH, THIRD GENERATION (test code 0.988 UIU/ML = 2821) COMPREHENSIVE METABOLIC [id number] 00:00:00 Test Item Value Reference Range Interpretation Comments GLUCOSE (test code = 2217) 109 MG/DL BUN (test code = 2208) 25 MG/DL CREATININE (test code = 2214) 0.78 MG/DL eGFR AMER. (test code 98 ML/MIN/1.73 = 95280) eGFR NON- AMER. (test 84 ML/MIN/1.73 code = 70155) CALC BUN/CREAT (test code = 32 RATIO [...] code = 2219) 25 U/L COMPREHENSIVE METABOLIC [id number] 00:00:00 Test Item Value Reference Range Interpretation Comments GLUCOSE (test code = 2217) 109 MG/DL BUN (test code = 2208) 25 MG/DL CREATININE (test code = 2214) 0.78 MG/DL eGFR AMER. (test code 98 ML/MIN/1.73 = 24354) eGFR NON- AMER. (test 84 ML/MIN/1.73 code = 72981) CALC BUN/CREAT (test code = 32 RATIO [...] (test code = 2219) 25 U/L LIPID [id number] 00:00:00 Test Item Value Reference Range Interpretation Comments CHOLESTEROL (test code = 2210) 295 MG/DL TRIGLYCERIDES (test code = 2232) 218 MG/DL HDL CHOLESTEROL (test code = 2220) 46 MG/DL CALC LDL CHOL (test code = 2237) 205 MG/DL RISK RATIO LDL/HDL (test code = 4.47 RATIO 2238) LIPID [id number] 00:00:00 Test Item Value Reference Range Interpretation Comments CHOLESTEROL (test code = 2210) 295 MG/DL TRIGLYCERIDES (test code = 2232) 218 MG/DL HDL CHOLESTEROL (test code = 2220) 46 MG/DL CALC LDL CHOL (test code = 2237) 205 MG/DL RISK RATIO LDL/HDL (test code = 4.47 RATIO 2238) HEMOGLOBIN [id number] 00:00:00 Test Item Value Reference Range Interpretation Comments HEMOGLOBIN A1c (test code = 10674) 7.0 % HEMOGLOBIN [id number] 00:00:00 Test Item Value Reference Range Interpretation Comments HEMOGLOBIN A1c (test code = 28679) 7.0 % HEMOGLOBIN [id number] 00:00:00 Test Item Value Reference Range Interpretation Comments HEMOGLOBIN A1c (test code = 05695) 7.0 % [id number] 00:00:00 Test Item Value Reference Range Interpretation Comments TSH, THIRD GENERATION (test code 0.565 UIU/ML = 2821) [id number] 00:00:00 Test Item Value Reference Range Interpretation Comments TSH, THIRD GENERATION (test code 0.565 UIU/ML = 2821) [id number] 00:00:00 Test Item Value Reference Range Interpretation Comments TSH, THIRD GENERATION (test code 0.565 UIU/ML = 2821) COMPREHENSIVE METABOLIC [id number] 00:00:00 Test Item Value Reference Range Interpretation Comments GLUCOSE (test code = 2217) 109 MG/DL BUN (test code = 2208) 25 MG/DL CREATININE (test code = 2214) 0.78 MG/DL eGFR AMER. (test code 98 ML/MIN/1.73 = 04984) eGFR NON- AMER. (test 84 ML/MIN/1.73 code = 78873) CALC BUN/CREAT (test code = 32 RATIO [...] A/G RATIO (test code = 1.8 RATIO 223) BILIRUBIN, TOTAL (test code = <0.2 MG/DL 2206) ALKALINE PHOSPHATASE (test 109 U/L code = 2204) AST (test code = 2218) 18 U/L ALT (test code = 2219) 25 U/L LIPID [id number] 00:00:00 Test Item Value Reference Range Interpretation Comments CHOLESTEROL (test code = 2210) 295 MG/DL TRIGLYCERIDES (test code = 2232) 218 MG/DL HDL CHOLESTEROL (test code = 2220) 46 MG/DL CALC LDL CHOL (test code = 2237) 205 MG/DL RISK RATIO LDL/HDL (test code = 4.47 RATIO 2238) HEMOGLOBIN [id number] 00:00:00 Test Item Value Reference Range Interpretation Comments HEMOGLOBIN A1c (test code = 18490) 7.0 % HEMOGLOBIN [id number] 00:00:00 Test Item Value Reference Range Interpretation Comments HEMOGLOBIN A1c (test code = 84985) 7.0 % [id number] 00:00:00 Test Item Value Reference Range Interpretation Comments TSH, THIRD GENERATION (test code 0.565 UIU/ML = 2821) [id number] 00:00:00 Test Item Value Reference Range Interpretation Comments TSH, THIRD GENERATION (test code 0.565 UIU/ML = 2821) COMPREHENSIVE METABOLIC [id number] 00:00:00 Test Item Value Reference Range Interpretation Comments GLUCOSE (test code = 2217) 109 MG/DL BUN (test code = 2208) 25 MG/DL CREATININE (test code = 2214) 0.78 MG/DL eGFR AMER. (test code 98 ML/MIN/1.73 = 53252) eGFR NON- AMER. (test 84 ML/MIN/1.73 code = 81756) CALC BUN/CREAT (test code = 32 RATIO [...] code = 2219) 25 U/L COMPREHENSIVE METABOLIC [id number] 00:00:00 Test Item Value Reference Range Interpretation Comments GLUCOSE (test code = 2217) 109 MG/DL BUN (test code = 2208) 25 MG/DL CREATININE (test code = 2214) 0.78 MG/DL eGFR AMER. (test code 98 ML/MIN/1.73 = 81489) eGFR NON- AMER. (test 84 ML/MIN/1.73 code = 38351) CALC BUN/CREAT (test code = 32 RATIO 2235) SODIUM (test code = 2231) 139 MEQ/L POTASSIUM (test code = 2228) 4.5 MEQ/L CHLORIDE (test code = 2215) 96 MEQ/L CARBON DIOXIDE (test code = 27 MEQ/L 2206) CALCIUM (test code = 2209) 10.0 MG/DL PROTEIN, TOTAL (test code = 7.6 G/DL 9) ALBUMIN (test code = 2201) 4.9 G/DL CALC GLOBULIN (test code = 2.7 G/DL 2240) CALC A/G RATIO (test code = 1.8 RATIO 2234) BILIRUBIN, TOTAL (test code = <0.2 MG/DL 2207) ALKALINE PHOSPHATASE (test 109 U/L code = 2204) AST (test code = 2218) 18 U/L ALT (test code = 2219) 25 U/L LIPID [id number] 00:00:00 Test Item Value Reference Range Interpretation Comments CHOLESTEROL (test code = 2210) 295 MG/DL TRIGLYCERIDES (test code = 2232) 218 MG/DL HDL CHOLESTEROL (test code = 2220) 46 MG/DL CALC LDL CHOL (test code = 2237) 205 MG/DL RISK RATIO LDL/HDL (test code = 4.47 RATIO 2238) LIPID [id number] 00:00:00 Test Item Value Reference Range Interpretation Comments CHOLESTEROL (test code = 2210) 295 MG/DL TRIGLYCERIDES (test code = 2232) 218 MG/DL HDL CHOLESTEROL (test code = 2220) 46 MG/DL CALC LDL CHOL (test code = 2237) 205 MG/DL RISK RATIO LDL/HDL (test code = 4.47 RATIO 2238) HEMOGLOBIN [id number] 00:00:00 Test Item Value Reference Range Interpretation Comments HEMOGLOBIN A1c (test code = 73224) 7.0 % HEMOGLOBIN [id number] 00:00:00 Test Item Value Reference Range Interpretation Comments HEMOGLOBIN A1c (test code = 57534) 7.0 % HEMOGLOBIN [id number] 00:00:00 Test Item Value Reference Range Interpretation Comments HEMOGLOBIN A1c (test code = 26284) 7.0 % [id number] 00:00:00 Test Item Value Reference Range Interpretation Comments TSH, THIRD GENERATION (test code 0.565 UIU/ML = 2821) [id number] 00:00:00 Test Item Value Reference Range Interpretation Comments TSH, THIRD GENERATION (test code 0.565 UIU/ML = 2821) [id number] 00:00:00 Test Item Value Reference Range Interpretation Comments TSH, THIRD GENERATION (test code 0.565 UIU/ML = 2821) [id number] 00:00:00 Test Item Value Reference Range Interpretation Comments TSH, THIRD GENERATION (test code 0.379 UIU/ML = 2821) [id number] 00:00:00 Test Item Value Reference Range Interpretation Comments TSH, THIRD GENERATION (test code 0.379 UIU/ML = 2821) [id number] 00:00:00 Test Item Value Reference Range Interpretation Comments TSH, THIRD GENERATION (test code 0.379 UIU/ML = 2821) [id number] 00:00:00 Test Item Value Reference Range Interpretation Comments TSH, THIRD GENERATION (test code 0.379 UIU/ML = 2821) [id number] 00:00:00 Test Item Value Reference Range Interpretation Comments TSH, THIRD GENERATION (test code 0.379 UIU/ML = 2821) [id number] 00:00:00 Test Item Value Reference Range Interpretation Comments TSH, THIRD GENERATION (test code 0.379 UIU/ML = 2821) [id number] 00:00:00 Test Item Value Reference Range Interpretation Comments TSH, THIRD GENERATION (test code 0.379 UIU/ML = 2821) [id number] 00:00:00 Test Item Value Reference Range Interpretation Comments TSH, THIRD GENERATION (test code 0.379 UIU/ML = 2821) CULTURE, [id number] 00:00:00 Test Item Value Reference Range Interpretation Comments CULTURE, URINE (test SPECIMEN NUMBER: code = 68511) [id number] CULTURE, [id number] 00:00:00 Test Item Value Reference Range Interpretation Comments CULTURE, URINE (test SPECIMEN NUMBER: code = 69103) [id number] CULTURE, [id number] 00:00:00 Test Item Value Reference Range Interpretation Comments CULTURE, URINE (test SPECIMEN NUMBER: code = 03986) [id number] CULTURE, [id number] 00:00:00 Test Item Value Reference Range Interpretation Comments CULTURE, URINE (test SPECIMEN NUMBER: code = 77988) [id number] CULTURE, [id number] 00:00:00 Test Item Value Reference Range Interpretation Comments CULTURE, URINE (test SPECIMEN NUMBER: code = 40530) [id number] COMPREHENSIVE METABOLIC [id number] 00:00:00 Test Item Value Reference Range Interpretation Comments GLUCOSE (test code = 2217) 128 MG/DL BUN (test code = 2208) 26 MG/DL CREATININE (test code = 2214) 0.92 MG/DL eGFR AMER. (test code 81 ML/MIN/1.73 = 90898) eGFR NON- AMER. (test 70 ML/MIN/1.73 code = 52316) CALC BUN/CREAT (test code = 28 RATIO [...] ALKALINE PHOSPHATASE (test 104 U/L code = 220) AST (test code = 2218) 24 U/L ALT (test code = 2219) 29 U/L COMPREHENSIVE METABOLIC [id number] 00:00:00 Test Item Value Reference Range Interpretation Comments GLUCOSE (test code = 2217) 128 MG/DL BUN (test code = 2208) 26 MG/DL CREATININE (test code = 2214) 0.92 MG/DL eGFR AMER. (test code 81 ML/MIN/1.73 = 27244) eGFR NON- AMER. (test 70 ML/MIN/1.73 code = 59559) CALC BUN/CREAT (test code = 28 RATIO [...] code = 2219) 29 U/L ACUTE HEPATITIS [id number] 00:00:00 Test Item Value Reference Range Interpretation Comments HEPATITIS A IgM (test code = NON-REACTIVE 71808) HEPATITIS B CORE IgM (test code NON-REACTIVE = 4644) HEPATITIS B SURF AG (test code = NON-REACTIVE 2739) HEPATITIS C ANTIBODY (test code NON-REACTIVE = 4675) INTERPRETATION HEPATITIS A: (NOTE) (test code = 2552) INTERPRETATION HEPATITIS B: (NOTE) (test code = 81696) INTERPRETATION HEPATITIS C: (NOTE) (test code = 52024) ACUTE HEPATITIS [id number] 00:00:00 Test Item Value Reference Range Interpretation Comments HEPATITIS A IgM (test code = NON-REACTIVE 97431) HEPATITIS B CORE IgM (test code NON-REACTIVE = 4644) HEPATITIS B SURF AG (test code = NON-REACTIVE 2739) HEPATITIS C ANTIBODY (test code NON-REACTIVE = 4675) INTERPRETATION HEPATITIS A: (NOTE) (test code = 2552) INTERPRETATION HEPATITIS B: (NOTE) (test code = 70660) INTERPRETATION HEPATITIS C: (NOTE) (test code = 26840) [id number] 00:00:00 Test Item Value Reference Range Interpretation Comments AMYLASE (test code = 2205) 32 U/L [id number] 00:00:00 Test Item Value Reference Range Interpretation Comments AMYLASE (test code = 2205) 32 U/L [id number] 00:00:00 Test Item Value Reference Range Interpretation Comments LIPASE (test code = 2058) 22 U/L [id number] 00:00:00 Test Item Value Reference Range Interpretation Comments LIPASE (test code = 2058) 22 U/L [id number] 00:00:00 Test Item Value Reference Range Interpretation Comments LIPASE (test code = 2058) 22 U/L COMPREHENSIVE METABOLIC [id number] 00:00:00 Test Item Value Reference Range Interpretation Comments GLUCOSE (test code = 2217) 128 MG/DL BUN (test code = 2208) 26 MG/DL CREATININE (test code = 2214) 0.92 MG/DL eGFR AMER. (test code 81 ML/MIN/1.73 = 40023) eGFR NON- AMER. (test 70 ML/MIN/1.73 code = 00342) CALC BUN/CREAT (test code = 28 RATIO [...] A/G RATIO (test code = 1.8 RATIO 223) BILIRUBIN, TOTAL (test code = <0.2 MG/DL 2206) ALKALINE PHOSPHATASE (test 104 U/L code = 220) AST (test code = 2218) 24 U/L ALT (test code = 2219) 29 U/L ACUTE HEPATITIS [id number] 00:00:00 Test Item Value Reference Range Interpretation Comments HEPATITIS A IgM (test code = NON-REACTIVE 14455) HEPATITIS B CORE IgM (test code NON-REACTIVE = 2773) HEPATITIS B SURF AG (test code = NON-REACTIVE 5908) HEPATITIS C ANTIBODY (test code NON-REACTIVE = 4662) INTERPRETATION HEPATITIS A: (NOTE) (test code = 2552) INTERPRETATION HEPATITIS B: (NOTE) (test code = 02033) INTERPRETATION HEPATITIS C: (NOTE) (test code = 78461) [id number] 00:00:00 Test Item Value Reference Range Interpretation Comments AMYLASE (test code = 5) 32 U/L [id number] 00:00:00 Test Item Value Reference Range Interpretation Comments LIPASE (test code = 8) 22 U/L [id number] 00:00:00 Test Item Value Reference Range Interpretation Comments LIPASE (test code = 2058) 22 U/L COMPREHENSIVE METABOLIC [id number] 00:00:00 Test Item Value Reference Range Interpretation Comments GLUCOSE (test code = 2217) 128 MG/DL BUN (test code = 2208) 26 MG/DL CREATININE (test code = 2214) 0.92 MG/DL eGFR AMER. (test code 81 ML/MIN/1.73 = 82688) eGFR NON- AMER. (test 70 ML/MIN/1.73 code = 88738) CALC BUN/CREAT (test code = 28 RATIO [...] code = 2219) 29 U/L COMPREHENSIVE METABOLIC [id number] 00:00:00 Test Item Value Reference Range Interpretation Comments GLUCOSE (test code = 2217) 128 MG/DL BUN (test code = 2208) 26 MG/DL CREATININE (test code = 2214) 0.92 MG/DL eGFR AMER. (test code 81 ML/MIN/1.73 = 24202) eGFR NON- AMER. (test 70 ML/MIN/1.73 code = 69544) CALC BUN/CREAT (test code = 28 RATIO [...] code = 2219) 29 U/L ACUTE HEPATITIS [id number] 00:00:00 Test Item Value Reference Range Interpretation Comments HEPATITIS A IgM (test code = NON-REACTIVE 25823) HEPATITIS B CORE IgM (test code NON-REACTIVE = 4644) HEPATITIS B SURF AG (test code = NON-REACTIVE 2739) HEPATITIS C ANTIBODY (test code NON-REACTIVE = 4675) INTERPRETATION HEPATITIS A: (NOTE) (test code = 2552) INTERPRETATION HEPATITIS B: (NOTE) (test code = 35500) INTERPRETATION HEPATITIS C: (NOTE) (test code = 59244) ACUTE HEPATITIS [id number] 00:00:00 Test Item Value Reference Range Interpretation Comments HEPATITIS A IgM (test code = NON-REACTIVE 01490) HEPATITIS B CORE IgM (test code NON-REACTIVE = 4644) HEPATITIS B SURF AG (test code = NON-REACTIVE 2739) HEPATITIS C ANTIBODY (test code NON-REACTIVE = 4675) INTERPRETATION HEPATITIS A: (NOTE) (test code = 2552) INTERPRETATION HEPATITIS B: (NOTE) (test code = 68252) INTERPRETATION HEPATITIS C: (NOTE) (test code = 73347) [id number] 00:00:00 Test Item Value Reference Range Interpretation Comments AMYLASE (test code = 2205) 32 U/L [id number] 00:00:00 Test Item Value Reference Range Interpretation Comments AMYLASE (test code = 2205) 32 U/L [id number] 00:00:00 Test Item Value Reference Range Interpretation Comments LIPASE (test code = 2058) 22 U/L [id number] 00:00:00 Test Item Value Reference Range Interpretation Comments LIPASE (test code = 2058) 22 U/L [id number] 00:00:00 Test Item Value Reference Range Interpretation Comments LIPASE (test code = 2058) 22 U/L [id number] 00:00:00 Test Item Value Reference Range Interpretation Comments TSH, THIRD GENERATION (test code 4.890 UIU/ML = 2821) [id number] 00:00:00 Test Item Value Reference Range Interpretation Comments TSH, THIRD GENERATION (test code 4.890 UIU/ML = 2821) [id number] 00:00:00 Test Item Value Reference Range Interpretation Comments TSH, THIRD GENERATION (test code 4.890 UIU/ML = 2821) COMPREHENSIVE METABOLIC [id number] 00:00:00 Test Item Value Reference Range Interpretation Comments GLUCOSE (test code = 2217) 121 MG/DL BUN (test code = 2208) 40 MG/DL CREATININE (test code = 2214) 1.48 MG/DL eGFR AMER. (test code 45 ML/MIN/1.73 = 94718) eGFR NON- AMER. (test 39 ML/MIN/1.73 code = 59058) CALC BUN/CREAT (test code = 27 RATIO [...] code = 2219) 20 U/L COMPREHENSIVE METABOLIC [id number] 00:00:00 Test Item Value Reference Range Interpretation Comments GLUCOSE (test code = 2217) 121 MG/DL BUN (test code = 2208) 40 MG/DL CREATININE (test code = 2214) 1.48 MG/DL eGFR AMER. (test code 45 ML/MIN/1.73 = 78738) eGFR NON- AMER. (test 39 ML/MIN/1.73 code = 15632) CALC BUN/CREAT (test code = 27 RATIO [...] ALT (test code = 2219) 20 U/L [id number] 00:00:00 Test Item Value Reference Range Interpretation Comments TSH, THIRD GENERATION (test code 4.890 UIU/ML = 2821) [id number] 00:00:00 Test Item Value Reference Range Interpretation Comments TSH, THIRD GENERATION (test code 4.890 UIU/ML = 2821) COMPREHENSIVE METABOLIC [id number] 00:00:00 Test Item Value Reference Range Interpretation Comments GLUCOSE (test code = 2217) 121 MG/DL BUN (test code = 2208) 40 MG/DL CREATININE (test code = 2214) 1.48 MG/DL eGFR AMER. (test code 45 ML/MIN/1.73 = 05261) eGFR NON- AMER. (test 39 ML/MIN/1.73 code = 77898) CALC BUN/CREAT (test code = 27 RATIO [...] ALT (test code = 2219) 20 U/L [id number] 00:00:00 Test Item Value Reference Range Interpretation Comments TSH, THIRD GENERATION (test code 4.890 UIU/ML = 2821) [id number] 00:00:00 Test Item Value Reference Range Interpretation Comments TSH, THIRD GENERATION (test code 4.890 UIU/ML = 2821) [id number] 00:00:00 Test Item Value Reference Range Interpretation Comments TSH, THIRD GENERATION (test code 4.890 UIU/ML = 2821) COMPREHENSIVE METABOLIC [id number] 00:00:00 Test Item Value Reference Range Interpretation Comments GLUCOSE (test code = 2217) 121 MG/DL BUN (test code = 2208) 40 MG/DL CREATININE (test code = 2214) 1.48 MG/DL eGFR AMER. (test code 45 ML/MIN/1.73 = 61140) eGFR NON- AMER. (test 39 ML/MIN/1.73 code = 73402) CALC BUN/CREAT (test code = 27 RATIO [...] code = 2219) 20 U/L COMPREHENSIVE METABOLIC [id number] 00:00:00 Test Item Value Reference Range Interpretation Comments GLUCOSE (test code = 2217) 121 MG/DL BUN (test code = 2208) 40 MG/DL CREATININE (test code = 2214) 1.48 MG/DL eGFR AMER. (test code 45 ML/MIN/1.73 = 64309) eGFR NON- AMER. (test 39 ML/MIN/1.73 code = 42766) CALC BUN/CREAT (test code = 27 RATIO [...] (test code = 2219) 20 U/L LIPID [id number] 00:00:00 Test Item Value Reference Range Interpretation Comments CHOLESTEROL (test code = 2210) 261 MG/DL TRIGLYCERIDES (test code = 2232) 165 MG/DL HDL CHOLESTEROL (test code = 2220) 58 MG/DL CALC LDL CHOL (test code = 2237) 170 MG/DL RISK RATIO LDL/HDL (test code = 2.93 RATIO 2238) LIPID [id number] 00:00:00 Test Item Value Reference Range Interpretation Comments CHOLESTEROL (test code = 2210) 261 MG/DL TRIGLYCERIDES (test code = 2232) 165 MG/DL HDL CHOLESTEROL (test code = 2220) 58 MG/DL CALC LDL CHOL (test code = 2237) 170 MG/DL RISK RATIO LDL/HDL (test code = 2.93 RATIO 2238) CBC W/AUTO [id number] 00:00:00 Test Item Value Reference Range Interpretation [...] code = 1015) 378 K/UL CBC W/AUTO [id number] 00:00:00 Test Item Value Reference Range Interpretation [...] code = 1015) 378 K/UL CBC W/AUTO [id number] 00:00:00 Test Item Value Reference Range Interpretation [...] (test code = 1015) 378 K/UL HEMOGLOBIN [id number] 00:00:00 Test Item Value Reference Range Interpretation Comments HEMOGLOBIN A1c (test code = 40688) 6.4 % HEMOGLOBIN [id number] 00:00:00 Test Item Value Reference Range Interpretation Comments HEMOGLOBIN A1c (test code = 90829) 6.4 % HEMOGLOBIN [id number] 00:00:00 Test Item Value Reference Range Interpretation Comments HEMOGLOBIN A1c (test code = 94275) 6.4 % [id number] 00:00:00 Test Item Value Reference Range Interpretation Comments TSH (test code = 2821) 5.290 UIU/ML [id number] 00:00:00 Test Item Value Reference Range Interpretation Comments TSH (test code = 2821) 5.290 UIU/ML [id number] 00:00:00 Test Item Value Reference Range Interpretation Comments TSH (test code = 2821) 5.290 UIU/ML LIPID [id number] 00:00:00 Test Item Value Reference Range Interpretation Comments CHOLESTEROL (test code = 2210) 261 MG/DL TRIGLYCERIDES (test code = 2232) 165 MG/DL HDL CHOLESTEROL (test code = 2220) 58 MG/DL CALC LDL CHOL (test code = 2237) 170 MG/DL RISK RATIO LDL/HDL (test code = 2.93 RATIO 2238) CBC W/AUTO [id number] 00:00:00 Test Item Value Reference Range Interpretation [...] code = 1015) 378 K/UL CBC W/AUTO [id number] 00:00:00 Test Item Value Reference Range Interpretation [...] (test code = 1015) 378 K/UL HEMOGLOBIN [id number] 00:00:00 Test Item Value Reference Range Interpretation Comments HEMOGLOBIN A1c (test code = 42217) 6.4 % HEMOGLOBIN [id number] 00:00:00 Test Item Value Reference Range Interpretation Comments HEMOGLOBIN A1c (test code = 09054) 6.4 % [id number] 00:00:00 Test Item Value Reference Range Interpretation Comments TSH (test code = 2821) 5.290 UIU/ML [id number] 00:00:00 Test Item Value Reference Range Interpretation Comments TSH (test code = 2821) 5.290 UIU/ML LIPID [id number] 00:00:00 Test Item Value Reference Range Interpretation Comments CHOLESTEROL (test code = 2210) 261 MG/DL TRIGLYCERIDES (test code = 2232) 165 MG/DL HDL CHOLESTEROL (test code = 2220) 58 MG/DL CALC LDL CHOL (test code = 2237) 170 MG/DL RISK RATIO LDL/HDL (test code = 2.93 RATIO 2238) LIPID [id number] 00:00:00 Test Item Value Reference Range Interpretation Comments CHOLESTEROL (test code = 2210) 261 MG/DL TRIGLYCERIDES (test code = 2232) 165 MG/DL HDL CHOLESTEROL (test code = 2220) 58 MG/DL CALC LDL CHOL (test code = 2237) 170 MG/DL RISK RATIO LDL/HDL (test code = 2.93 RATIO 2238) CBC W/AUTO [id number] 00:00:00 Test Item Value Reference Range Interpretation [...] code = 1015) 378 K/UL CBC W/AUTO [id number] 00:00:00 Test Item Value Reference Range Interpretation [...] code = 1015) 378 K/UL CBC W/AUTO [id number] 00:00:00 Test Item Value Reference Range Interpretation [...] (test code = 1015) 378 K/UL HEMOGLOBIN [id number] 00:00:00 Test Item Value Reference Range Interpretation Comments HEMOGLOBIN A1c (test code = 30271) 6.4 % HEMOGLOBIN [id number] 00:00:00 Test Item Value Reference Range Interpretation Comments HEMOGLOBIN A1c (test code = 36998) 6.4 % HEMOGLOBIN [id number] 00:00:00 Test Item Value Reference Range Interpretation Comments HEMOGLOBIN A1c (test code = 30297) 6.4 % [id number] 00:00:00 Test Item Value Reference Range Interpretation Comments TSH (test code = 2821) 5.290 UIU/ML [id number] 00:00:00 Test Item Value Reference Range Interpretation Comments TSH (test code = 2821) 5.290 UIU/ML [id number] 00:00:00 Test Item Value Reference Range Interpretation [...] code = 2821) 1.030 UIU/ML COMPREHENSIVE METABOLIC [id number] 00:00:00 Test Item Value Reference Range Interpretation Comments GLUCOSE (test code = 2217) 106 MG/DL BUN (test code = 2208) 23 MG/DL CREATININE (test code = 2214) 0.66 MG/DL eGFR AMER. (test code 114 ML/MIN/1.73 = 81040) eGFR NON- AMER. (test 99 ML/MIN/1.73 code = 54031) CALC BUN/CREAT (test code = 35 RATIO [...] code = 2219) 31 U/L COMPREHENSIVE METABOLIC [id number] 00:00:00 Test Item Value Reference Range Interpretation Comments GLUCOSE (test code = 2217) 106 MG/DL BUN (test code = 2208) 23 MG/DL CREATININE (test code = 2214) 0.66 MG/DL eGFR AMER. (test code 114 ML/MIN/1.73 = 58628) eGFR NON- AMER. (test 99 ML/MIN/1.73 code = 90195) CALC BUN/CREAT (test code = 35 RATIO [...] code = 2821) 0.335 UIU/ML COMPREHENSIVE METABOLIC [id number] 00:00:00 Test Item Value Reference Range Interpretation Comments GLUCOSE (test code = 2217) 106 MG/DL BUN (test code = 2208) 23 MG/DL CREATININE (test code = 2214) 0.66 MG/DL eGFR AMER. (test code 114 ML/MIN/1.73 = 66342) eGFR NON- AMER. (test 99 ML/MIN/1.73 code = 85156) CALC BUN/CREAT (test code = 35 RATIO [...] code = 2821) 0.335 UIU/ML COMPREHENSIVE METABOLIC [id number] 00:00:00 Test Item Value Reference Range Interpretation Comments GLUCOSE (test code = 2217) 106 MG/DL BUN (test code = 2208) 23 MG/DL CREATININE (test code = 2214) 0.66 MG/DL eGFR AMER. (test code 114 ML/MIN/1.73 = 43449) eGFR NON- AMER. (test 99 ML/MIN/1.73 code = 91201) CALC BUN/CREAT (test code = 35 RATIO [...] code = 2219) 31 U/L COMPREHENSIVE METABOLIC [id number] 00:00:00 Test Item Value Reference Range Interpretation Comments GLUCOSE (test code = 2217) 106 MG/DL BUN (test code = 2208) 23 MG/DL CREATININE (test code = 2214) 0.66 MG/DL eGFR AMER. (test code 114 ML/MIN/1.73 = 70972) eGFR NON- AMER. (test 99 ML/MIN/1.73 code = 48751) CALC BUN/CREAT (test code = 35 RATIO [...] code = 2821) 0.335 UIU/ML COMPREHENSIVE METABOLIC [id number] 00:00:00 Test Item Value Reference Range Interpretation Comments GLUCOSE (test code = 2217) 103 MG/DL BUN (test code = 2208) 15 MG/DL CREATININE (test code = 2214) 0.77 MG/DL eGFR AMER. (test code 101 ML/MIN/1.73 = 29375) eGFR NON- AMER. (test 87 ML/MIN/1.73 code = 97510) CALC BUN/CREAT (test code = 19 RATIO [...] code = 2219) 24 U/L COMPREHENSIVE METABOLIC [id number] 00:00:00 Test Item Value Reference Range Interpretation Comments GLUCOSE (test code = 2217) 103 MG/DL BUN (test code = 2208) 15 MG/DL CREATININE (test code = 2214) 0.77 MG/DL eGFR AMER. (test code 101 ML/MIN/1.73 = 07451) eGFR NON- AMER. (test 87 ML/MIN/1.73 code = 09344) CALC BUN/CREAT (test code = 19 RATIO 2234) SODIUM (test code = 2231) 136 MEQ/L [...] = 220) AST (test code = 221) 15 U/L ALT (test code = 2219) [...] code = 2821) 0.424 UIU/ML COMPREHENSIVE METABOLIC [id number] 00:00:00 Test Item Value Reference Range Interpretation Comments GLUCOSE (test code = 2217) 103 MG/DL BUN (test code = 2208) 15 MG/DL CREATININE (test code = 2214) 0.77 MG/DL eGFR AMER. (test code 101 ML/MIN/1.73 = 31732) eGFR NON- AMER. (test 87 ML/MIN/1.73 code = 54315) CALC BUN/CREAT (test code = 19 RATIO 2234) SODIUM (test code = 2231) 136 MEQ/L [...] code = 2821) 0.424 UIU/ML COMPREHENSIVE METABOLIC [id number] 00:00:00 Test Item Value Reference Range Interpretation Comments GLUCOSE (test code = 2217) 103 MG/DL BUN (test code = 2208) 15 MG/DL CREATININE (test code = 2214) 0.77 MG/DL eGFR AMER. (test code 101 ML/MIN/1.73 = 54037) eGFR NON- AMER. (test 87 ML/MIN/1.73 code = 97535) CALC BUN/CREAT (test code = 19 RATIO 2234) SODIUM (test code = 2231) 136 MEQ/L [...] code = 2219) 24 U/L COMPREHENSIVE METABOLIC [id number] 00:00:00 Test Item Value Reference Range Interpretation Comments GLUCOSE (test code = 2217) 103 MG/DL BUN (test code = 2208) 15 MG/DL CREATININE (test code = 2214) 0.77 MG/DL eGFR AMER. (test code 101 ML/MIN/1.73 = 31059) eGFR NON- AMER. (test 87 ML/MIN/1.73 code = 75513) CALC BUN/CREAT (test code = 19 RATIO [...] (test code = 2821) 0.424 UIU/ML CULTURE, [id number] 00:00:00 Test Item Value Reference Range Interpretation Comments CULTURE, URINE (test SPECIMEN NUMBER: code = 88561) [id number] CULTURE, [id number] 00:00:00 Test Item Value Reference Range Interpretation Comments CULTURE, URINE (test SPECIMEN NUMBER: code = 45670) [id number] CULTURE, [id number] 00:00:00 Test Item Value Reference Range Interpretation Comments CULTURE, URINE (test SPECIMEN NUMBER: code = 67598) [id number] CULTURE, [id number] 00:00:00 Test Item Value Reference Range Interpretation Comments CULTURE, URINE (test SPECIMEN NUMBER: code = 61245) [id number] CULTURE, [id number] 00:00:00 Test Item Value Reference Range Interpretation Comments CULTURE, URINE (test SPECIMEN NUMBER: code = 30567) [id number] CULTURE, [id number] 00:00:00 Test Item Value Reference Range Interpretation Comments CULTURE, URINE (test SPECIMEN NUMBER: code = 33339) [id number] CULTURE, [id number] 00:00:00 Test Item Value Reference Range Interpretation Comments CULTURE, URINE (test SPECIMEN NUMBER: code = 22553) [id number] CULTURE, [id number] 00:00:00 Test Item Value Reference Range Interpretation Comments CULTURE, URINE (test SPECIMEN NUMBER: code = 60219) [id number] CULTURE, [id number] 00:00:00 Test Item Value Reference Range Interpretation Comments CULTURE, URINE (test SPECIMEN NUMBER: code = 91817) [id number] CULTURE, [id number] 00:00:00 Test Item Value Reference Range Interpretation Comments CULTURE, URINE (test SPECIMEN NUMBER: code = 60974) [id number]
[2022-02-08] MEDS ORDERED: FAMOTIDINE 20 MG/2 ML VIAL IV ONE (15:08)
[2022-02-08] MEDS ORDERED: MORPHINE 2 MG/ML SYR ONE (15:08)
[2022-02-08] MEDS ORDERED: ONDANSETRON 4 MG/2 ML VIAL ONE (15:08)
--- NOTE | 2022-02-08 15:40 | RAD REPORT ---
EXAM DESCRIPTION: US - Abdomen Exam Limited - 02/08/2022 3:11 pm CLINICAL HISTORY: Abdominal pain. COMPARISON: September 2021 FINDINGS: The gallbladder wall is not thickened. A gallstone is not seen. The biliary tree is normal caliber. IMPRESSION: No significant abnormality is displayed
[2022-02-08 15:59] LABS: Protime INR 0.96
[2022-02-08 16:24] LABS: Absolute Lymphocytes (CBC) 2.9 K/uL (0.7-4.9); Hematocrit 36.1 % (36.0-45.0); Lymphocytes % 35.7 % (15.3-44.8); MCV 91.7 fL (80-100); MPV 6.7 fL (7.6-11.3); RBC Red Blood Cell Count 3.94 M/uL (3.86-4.86)
[2022-02-08 16:39] LABS: ALT/SGPT 29 U/L (12-78); AST/SGOT 11 U/L (15-37); Albumin 3.5 g/dL (3.4-5.0); BUN Blood Urea Nitrogen 14 mg/dL (7-18); Bicarbonate 32 mmol/L (21-32); Glomerular Filtration Rate 85 ml/min (=/>90); Glucose Level 116 mg/dL (74-106); Lipase 87 U/L (73-393); Magnesium 1.9 mg/dL (1.8-2.4); Potassium 3.8 mmol/L (3.5-5.1); Sodium Level 135 mmol/L (136-145)
--- NOTE | 2022-02-08 16:42 | ER ---
Nurse's Notes [facility] Name: Jaimie Amanda Age: 61 yrs Sex: Female : 1960 Arrival Date: 02/08/2022 Time: 14:05 Bed 6 Private MD: Diagnosis: Abdominal tenderness;Anxiety disorder, unspecified Presentation: 02/08 14:32 Chief complaint: Patient states: right-sided abdominal pain since this morning. Reports kb3 similar pain 1 month ago, followed up with Dr Smith and he "gave her a bunch of pills" but no further exams. Denies N/V/D. Coronavirus screen: Vaccine status: Patient reports receiving the 2nd dose of the covid vaccine. Client denies travel out of the [place] in the last 14 days. Ebola Screen: Patient negative for fever greater than or equal to 101.5 degrees Fahrenheit, and additional compatible Ebola Virus Disease symptoms Patient denies exposure to infectious person. Patient denies travel to an Ebola-affected area in the 21 days before illness onset. Initial Sepsis Screen: Does the patient meet any 2 criteria? No. Patient's initial sepsis screen is negative. Does the patient have a suspected source of infection? No. Patient's initial sepsis screen is negative. Risk Assessment: Do you want to hurt yourself or someone else? Patient reports no desire to harm self or others. Onset of symptoms was February 08, 2022 at 07:00. 14:32 Method Of Arrival: Ambulatory 3 14:32 Acuity: ZHEN 3 kb3 Triage Assessment: 14:34 General: Appears in no apparent distress. Behavior is calm, cooperative. Pain: kb3 Complains of pain in right upper quadrant and right lower quadrant Pain does not radiate. Pain currently is 8 out of 10 on a pain scale. Quality of pain is described as crampy, sharp. GI: Reports lower abdominal pain, upper abdominal pain. Historical: - Allergies: 14:34 No Known Allergies; kb3 - PMHx: 14:34 Alcoholism; Anxiety; Hypertensive disorder; Hypothyroidism; low NA; NIDDM; kb3 - PSHx: 14:34 Thyroidectomy; kb3 - Immunization history:: Adult Immunizations up to date, Client reports receiving the 2nd dose of the Covid vaccine, Last tetanus immunization: up to date. - Social history:: Smoking status: Patient reports the use of cigarette tobacco products, smokes one pack cigarettes per day. - Family history:: not pertinent. Screenin:28 Abuse screen: Denies threats or abuse. Nutritional screening: No deficits noted. mb9 Tuberculosis screening: No symptoms or risk factors identified. Fall Risk None identified. Assessment: 14:45 General: Appears in no apparent distress. comfortable, Behavior is calm, cooperative, mb9 appropriate for age. Pain: Complains of pain in right lower quadrant and right upper quadrant Pain does not radiate. Pain currently is 8 out of 10 on a pain scale. Quality of pain is described as aching. Neuro: Jorgensen Agitation-Sedation Scale (RASS): 0 - Alert and Calm Level of Consciousness is awake, alert, obeys commands, Oriented to person, place, time, situation, Appropriate for age. Cardiovascular: Heart tones S1 S2 present Rhythm is regular. Respiratory: Airway is patent Respiratory effort is even, unlabored, Respiratory pattern is regular, symmetrical, Breath sounds are clear bilaterally. GI: Abdomen is flat, non-distended, Bowel sounds present X 4 quads. Abd is soft Abdomen is tender to palpation in right upper quadrant and right lower quadrant Patient currently denies diarrhea, nausea, vomiting. : No signs and/or symptoms were reported regarding the genitourinary system. EENT: No signs and/or symptoms were reported regarding the EENT system. Derm: Skin is pink, warm \\T\\ dry. Musculoskeletal: Range of motion: intact in all extremities. 15:45 Pain: Complains of pain in right lower quadrant and right upper quadrant. Pain: mb9 Complains of pain in right lower quadrant and right upper quadrant. Neuro: Level of Consciousness is awake, alert, obeys commands, Oriented to person, place, time, situation, Appropriate for age. Respiratory: Airway is patent. GI:. Derm: Skin is pink, warm \\T\\ dry. 16:27 General: Appears in no apparent distress. comfortable, Behavior is calm, cooperative, mb9 appropriate for age. Pain: Complains of pain in right lower quadrant and right upper quadrant. Respiratory: Airway is patent Respiratory effort is even, unlabored, Respiratory pattern is regular, symmetrical. Derm: Skin is pink, warm \\T\\ dry. Derm: Skin is pink, warm \\T\\ dry. 17:22 Pain: Denies pain. Neuro: Level of Consciousness is awake, alert, obeys commands, mb9 Oriented to person, place, time, situation, Appropriate for age. Cardiovascular: Rhythm is regular. Respiratory: Airway is patent Respiratory effort is even, unlabored, Respiratory pattern is regular, symmetrical. Derm: Skin is pink, warm \\T\\ dry. Vital Signs: 14:32 BP 133 / 86; Pulse 69; Resp 20; Temp 98.0; Pulse Ox 99% ; Weight 68.04 kg; Height 5 ft. kb3 7 in. (170.18 cm); Pain 8/10; 15:45 BP 150 / 73; Pulse 68; Resp 16; Pulse Ox 99% ; Pain 8/10; mb9 16:26 BP 142 / 91; Pulse 62; Resp 19; Pulse Ox 100% ; Pain 7/10; mb9 17:23 BP 165 / 65; Pulse 60; Resp 18; Pulse Ox 100% on R/A; Pain 0/10; mb9 14:32 Body Mass Index 23.49 (68.04 kg, 170.18 cm) kb3 ED Course: 14:05 Patient arrived in ED. rg4 14:34 Triage completed. kb3 14:34 Arm band placed on left wrist. kb3 14:34 Placed in gown. Bed in low position. Call light in reach. Side rails up X 1. mb9 14:36 Diego Ramirez MD is Attending Physician. [facility] 14:59 Radha Gregory, RN is Primary Nurse. mb9 15:00 Missed attempt(s): 20 gauge in left forearm. Bleeding controlled, band aid applied, mb9 catheter tip intact. 15:12 US Abdomen Limited In Process Unspecified. EDMS 15:14 XRAY Chest (1 view) In Process Unspecified. EDMS 15:30 EKG done, by ED staff, reviewed by Diego Ramirez MD. mb9 16:00 Accessed peripheral vein via ultrasound, utilizing dynamic ultrasound technique using jd3 20G Nexia IV catheter ,sterile technique, per hospital protocol. Clean \\T\\ dry. Dressing intact. Good blood return. Flushes easily. 20 G right AC. 16:21 Basic Metabolic Panel Sent. mb9 16:21 CBC with Diff Sent. mb9 16:21 Troponin HS Sent. mb9 16:21 LFT's Sent. mb9 16:21 Magnesium Sent. mb9 16:21 NT PRO-BNP Sent. mb9 16:28 No provider procedures requiring assistance completed. mb9 17:24 IV discontinued, intact, bleeding controlled, No redness/swelling at site. Pressure mb9 dressing applied. Administered Medications: 14:05 Drug: Zofran (Ondansetron) 4 mg Route: IVP; Site: right antecubital; mb9 16:26 Follow up: Response: No adverse reaction mb9 14:08 Drug: morphine 2 mg Route: IVP; Infused Over: 4 mins; Site: right antecubital; mb9 16:26 Follow up: Response: No adverse reaction mb9 14:11 Drug: Pepcid (famotidine) 20 mg Route: IVP; Site: right antecubital; mb9 16:27 Follow up: Response: No adverse reaction mb9 17:05 CANCELLED (Inappropriate at this time): morphine 2 mg IVP once over 4 mins mb9 Medication: 16:28 VIS not applicable for this client. mb9 Outcome: 16:41 Discharge ordered by MD. young 17:24 Discharged to home ambulatory. mb9 17:24 Condition: stable 17:24 Discharge instructions given to patient, Instructed on discharge instructions, follow up and referral plans. Demonstrated understanding of instructions, follow-up care, medications, Prescriptions given X 3. 17:25 Patient left the ED. mb9 Signatures: Dispatcher [employer] EDDiego Angela MD MD cha Garcia, Rubi rg4 Rene Lilly RN RN jSamreen Agarwal, RN RN kb3 Radha Gregory RN RN mb9
--- NOTE | 2022-02-08 16:42 | EDPHYS ---
Physician Documentation [facility] Name: Jaimie Amanda Age: 61 yrs Sex: Female : 1960 Arrival Date: 02/08/2022 Time: 14:05 Bed 6 Private MD: [facility]STA Physician Diego Ramirez HPI: 02/08 16:05 This 61 yrs old Female presents to ER via Ambulatory with complaints of hannah Abdominal Pain. 16:05 The patient presents with abdominal pain in the upper abdomen, in the lower abdomen, in hannah the right upper quadrant, right lower quadrant, abdominal distention in the upper abdomen, in the lower abdomen. Onset: The symptoms/episode began/occurred 2 day(s) ago. The symptoms do not radiate. Associated signs and symptoms: none. The symptoms are described as crampy. Modifying factors: The symptoms are alleviated by nothing, the symptoms are aggravated by nothing. Severity of pain: At its worst the pain was mild in the emergency department the pain is unchanged. The patient has not experienced similar symptoms in the past. Historical: - Allergies: 14:34 No Known Allergies; kb3 - PMHx: 14:34 Alcoholism; Anxiety; Hypertensive disorder; Hypothyroidism; low NA; NIDDM; kb3 - PSHx: 14:34 Thyroidectomy; kb3 - Immunization history:: Adult Immunizations up to date, Client reports receiving the 2nd dose of the Covid vaccine, Last tetanus immunization: up to date. - Social history:: Smoking status: Patient reports the use of cigarette tobacco products, smokes one pack cigarettes per day. - Family history:: not pertinent. ROS: 16:05 Constitutional: Negative for fever, chills, and weight loss, Eyes: Negative for injury, hannah pain, redness, and discharge, ENT: Negative for injury, pain, and discharge, Neck: Negative for injury, pain, and swelling, Cardiovascular: Negative for chest pain, palpitations, and edema, Respiratory: Negative for shortness of breath, cough, wheezing, and pleuritic chest pain, Back: Negative for injury and pain, : Negative for injury, bleeding, discharge, and swelling, MS/Extremity: Negative for injury and deformity, Skin: Negative for injury, rash, and discoloration, Neuro: Negative for headache, weakness, numbness, tingling, and seizure, Psych: Negative for depression, anxiety, suicide ideation, homicidal ideation, and hallucinations, Allergy/Immunology: Negative for hives, rash, and allergies, Endocrine: Negative for neck swelling, polydipsia, polyuria, polyphagia, and marked weight changes, Hematologic/Lymphatic: Negative for swollen nodes, abnormal bleeding, and unusual bruising. 16:05 Abdomen/GI: Positive for abdominal pain, of the right upper quadrant and right lower quadrant. Exam: 16:05 Constitutional: This is a well developed, well nourished patient who is awake, alert, hannah and in no acute distress. Head/Face: Normocephalic, atraumatic. Eyes: Pupils equal round and reactive to light, extra-ocular motions intact. Lids and lashes normal. Conjunctiva and sclera are non-icteric and not injected. Cornea within normal limits. Periorbital areas with no swelling, redness, or edema. ENT: Nares patent. No nasal discharge, no septal abnormalities noted. Tympanic membranes are normal and external auditory canals are clear. Oropharynx with no redness, swelling, or masses, exudates, or evidence of obstruction, uvula midline. Mucous membranes moist. Neck: Trachea midline, no thyromegaly or masses palpated, and no cervical lymphadenopathy. Supple, full range of motion without nuchal rigidity, or vertebral point tenderness. No Meningismus. Chest/axilla: Normal chest wall appearance and motion. Nontender with no deformity. No lesions are appreciated. Cardiovascular: Regular rate and rhythm with a normal S1 and S2. No gallops, murmurs, or rubs. Normal PMI, no JVD. No pulse deficits. Respiratory: Lungs have equal breath sounds bilaterally, clear to auscultation and percussion. No rales, rhonchi or wheezes noted. No increased work of breathing, no retractions or nasal flaring. Abdomen/GI: Soft, non-tender, with normal bowel sounds. No distension or tympany. No guarding or rebound. No evidence of tenderness throughout. Back: No spinal tenderness. No costovertebral tenderness. Full range of motion. Skin: Warm, dry with normal turgor. Normal color with no rashes, no lesions, and no evidence of cellulitis. MS/ Extremity: Pulses equal, no cyanosis. Neurovascular intact. Full, normal range of motion. Neuro: Awake and alert, GCS 15, oriented to person, place, time, and situation. Cranial nerves II-XII grossly intact. Motor strength 5/5 in all extremities. Sensory grossly intact. Cerebellar exam normal. Normal gait. Psych: Awake, alert, with orientation to person, place and time. Behavior, mood, and affect are within normal limits. Vital Signs: 14:32 BP 133 / 86; Pulse 69; Resp 20; Temp 98.0; Pulse Ox 99% ; Weight 68.04 kg; Height 5 ft. kb3 7 in. (170.18 cm); Pain 8/10; 15:45 BP 150 / 73; Pulse 68; Resp 16; Pulse Ox 99% ; Pain 8/10; mb9 16:26 BP 142 / 91; Pulse 62; Resp 19; Pulse Ox 100% ; Pain 7/10; mb9 17:23 BP 165 / 65; Pulse 60; Resp 18; Pulse Ox 100% on R/A; Pain 0/10; mb9 14:32 Body Mass Index 23.49 (68.04 kg, 170.18 cm) kb3 MDM: 14:36 Patient medically screened. [facility] 16:07 Differential diagnosis: appendicitis, bowel obstruction, cholecystitis, Cholelithiasis, hannah diverticulitis, gastritis, Mesenteric ischemia or infarction, non-specific abd pain, pancreatitis, Peptic Ulcer Disease, Pyelonephritis, urinary tract infection. Data reviewed: vital signs, nurses notes, lab test result(s), EKG, radiologic studies, plain films. Data interpreted: nurse monitoring: rate is 69 beats/min, rhythm is regular, Pulse oximetry: on room air is 99 %. Test interpretation: by ED physician or midlevel provider: ECG, plain radiologic studies. Counseling: I had a detailed discussion with the patient and/or guardian regarding: the historical points, exam findings, and any diagnostic results supporting the discharge/admit diagnosis, lab results, radiology results. 02/08 14:39 Order name: Basic Metabolic Panel; Complete Time: 17:15 [facility] 02/08 14:39 Order name: CBC with Diff; Complete Time: 16:32 [facility] 02/08 14:39 Order name: LFT's; Complete Time: 17:15 [facility] 02/08 14:39 Order name: Magnesium; Complete Time: 17:15 [facility] 02/08 14:39 Order name: NT PRO-BNP; Complete Time: 17:15 [facility] 02/08 14:39 Order name: PT-INR; Complete Time: 16:32 [facility] 02/08 14:39 Order name: Troponin HS; Complete Time: 17:15 [facility] 02/08 14:39 Order name: Lipase; Complete Time: 17:15 [facility] 02/08 14:39 Order name: Urine Culture [facility] 02/08 14:39 Order name: ETOH Level; Complete Time: 16:32 [facility] 02/08 15:33 Order name: Osmolality, Serum; Complete Time: 17:03 [facility] 02/08 15:33 Order name: Urine Osmolality [facility] 02/08 15:33 Order name: Urine Sodium Random [facility] 02/08 17:16 Order name: Urine Dipstick-Ancillary EDCT 02/08 14:39 Order name: XRAY Chest (1 view) [facility] 02/08 14:39 Order name: EKG; Complete Time: 14:39 [facility] 02/08 14:39 Order name: Cardiac monitoring; Complete Time: 15:29 [facility] 02/08 14:39 Order name: EKG - Nurse/Tech; Complete Time: 15:54 [facility] 02/08 14:39 Order name: IV Saline Lock; Complete Time: 16:21 [facility] 02/08 14:39 Order name: Labs collected and sent; Complete Time: 16:21 [facility] 02/08 14:39 Order name: O2 Per Protocol; Complete Time: 15:29 [facility] 02/08 14:39 Order name: O2 Sat Monitoring; Complete Time: 15:29 [facility] 02/08 14:39 Order name: US Abdomen Limited; Complete Time: 16:32 [facility] 02/08 16:01 Order name: Labs - recollect needed: recollect all the blood/ hemolyzed; Complete Time: eb 16:20 Administered Medications: 14:05 Drug: Zofran (Ondansetron) 4 mg Route: IVP; Site: right antecubital; mb9 16:26 Follow up: Response: No adverse reaction mb9 14:08 Drug: morphine 2 mg Route: IVP; Infused Over: 4 mins; Site: right antecubital; mb9 16:26 Follow up: Response: No adverse reaction mb9 14:11 Drug: Pepcid (famotidine) 20 mg Route: IVP; Site: right antecubital; mb9 16:27 Follow up: Response: No adverse reaction mb9 17:05 CANCELLED (Inappropriate at this time): morphine 2 mg IVP once over 4 mins mb9 Disposition Summary: 02/08/22 16:41 Discharge Ordered Location: Home [facility] Problem: new hannah Symptoms: have improved hannah Condition: Stable hannah Diagnosis - Abdominal tenderness hannah - Anxiety disorder, unspecified hannah Followup: hannah - With: Private Physician - When: 2 - 3 days - Reason: Recheck today's complaints, Continuance of care, Re-evaluation by your physician Discharge Instructions: - Discharge Summary Sheet hannah - Abdominal Pain, Adult, [id number] hannah - Generalized Anxiety Disorder, Adult hannah Forms: - Medication Reconciliation Form [facility] - Thank You Letter [facility] - Antibiotic Education hannah - Prescription Opioid Use [facility] Prescriptions: - Pepcid 20 mg Oral Tablet - take 1 tablet by ORAL route every 12 hours for 10 days; 20 tablet; Refills: 0, [facility] Product Selection Permitted - Zofran 4 mg Oral Tablet - take 1 tablet by ORAL route every 12 hours As needed; 20 tablet; Refills: 0, [facility] Product Selection Permitted - dicyclomine 20 mg Oral Tablet - take 1 tablet by ORAL route 4 times per day; 28 tablet; Refills: 0, Product [facility] Selection Permitted Signatures: Dispatcher [employer] EDMS Diego Ramirez MD MD cha Botello, Elizabeth eb Bradberry, Kelly, RN RN kb3 Radha Gregory RN RN mb9 Corrections: (The following items were deleted from the chart) 16:45 14:39 Abdomen Pelvis W [id number].[id number] ordered. EDCT EDCT 17:05 14:39 morphine 2 mg IVP once over 4 mins ordered. [facility] [id number] 17:05 17:05 morphine 2 mg IVP once over 4 mins ordered. mb9 mb9
[2022-02-08 16:44] LABS: Alkaline Phosphatase 94 U/L (45-117); Bilirubin Total 0.3 mg/dL (0.2-1.0); NT PRO-BNP 54 pg/mL (<125); Protein, Total 7.4 g/dL (6.4-8.2); Troponin High Sensitivity 4.5 pg/mL (<58.9)
[2022-02-08 17:08] LABS: Bilirubin Direct < 0.1 mg/dL (0-0.2)
[2022-02-08 17:16] LABS: Urine Blood Negative (Negative); Urine Glucose Negative (Negative); Urine Protein Negative (Negative)
--- NOTE | 2022-02-08 17:26 | RAD REPORT ---
EXAM DESCRIPTION: [facility] Single View02/08/2022 3:12 pm CLINICAL HISTORY: Abdominal pain COMPARISON: December 2021 FINDINGS: The lungs appear clear of acute infiltrate. The heart is normal size IMPRESSION: No acute abnormalities displayed
[2022-02-08 17:28] VITALS: TEMP 98
[2022-02-08 17:32] VITALS: BP 165/65; O2SAT 100
--- NOTE | 2022-02-10 13:51 | EKG ---
Test Date: 2022-02-08 Test Time: 15:33:15 Chief Green Officer: MB MEASUREMENT RESULTS: Intervals: Rate: 59 MD: 178 QRSD: 90 QT: 426 QTc: 421 [place]: P: 65 MD: 178 QRS: 87 T: 102 INTERPRETIVE STATEMENTS: Sinus bradycardia Nonspecific T wave abnormality Abnormal ECG Compared to ECG 12/28/2021 22:40:04 T-wave abnormality now present Sinus rhythm no longer present Electronically Signed On 02-10-22 13:49:31 LOBBY PORTER by Brian Booker
== END 2022-02-08 17:25 | disposition home or self-care (01) ==
LOC: ER 14:03
DX: R10.819 Abdominal tenderness, unspecified site (principal); F41.9 Anxiety disorder, unspecified; F10.20 Alcohol dependence, uncomplicated; I10 Essential (primary) hypertension; F17.210 Nicotine dependence, cigarettes, uncomplicated
CPT/HCPCS: 93005; 87088; 85025; 87086; 80048; 36415; 80320; 83735; 85610; 84300; 80076; 81003; 84484; 83690; 83880; 83930; 83935; 71045; 76705; 96375; 96374; 99284; J2270; J2405

== ENCOUNTER 2022-02-09 08:57 | Emergency (ER) | payer OTHER ==
--- OUTSIDE RECORDS SUMMARY | 2022-02-09 09:10 | XMS REPORT | Continuity of Care Document ---
:1960 Author Organization [facility] t Address [address] [place] [address] Care Team Providers Name Role Phone Sharpless Primary Care Physician MATT SIMPSON Attending Clinician Unavailable MATT SIMPSON Attending Clinician Unavailable Doctor Unassigned, [place] [facility] Attending Clinician Unavailable WALLY KRISHNAMURTHY Attending Clinician Unavailable Gramm Natacha CLARK Attending Clinician Payers Payer Name Policy Type Policy Number Effective Date Expiration Date Sarina castelan [facility] [id number] 2017 00:00:00 PLUS Problems This patient has [...] s TRANSDER - ity of MAL 00:00: [place] 00 [facility] Branch ACETAMIN DRUG Active Other-Cmnt Univ ers OPHEN INGREDI 07-27 ity of 00:00: [place] [address] Medical Branch Hmg-Coa Propensi Inactiv Reductas ty to e 2-28 e adverse 00:00: Inhibito reaction 00 rs to drug Nitrogly Propensi Active 2017-03 cerin ty to 1-08 adverse 00:00: reaction 00 to drug Social History Social Habit Start Date Stop Date Quantity Comments Source Alcohol intake 2016-05-01 2016-05-01 Current [facility] es 00:00:00 00:00:00 non-drinker of Medical nter alcohol (finding) Sex Assigned At [birth year] [facility] 00:00:00 00:00:00 [facility] Smoking Status Start Date Stop Date Source Current every day smoker 2016-05-01 00:00:00 [facility] Medications Ordered Filled Start [...] ne 137 mcg 3-27 tablet 00:00: 00 Trileptal 2020-0 No 1mg 600 mg 3-26 [...] tablet,exte 00:00: nded 00 release 24 hr ondansetron 2020-0 No mg HCl 4 mg [...] anjel[facility] OXcarbazepi 2017-0 Yes 600mg Q.[id number] Take [address] ne 2-23 [id number] [facility] (TR[facility]PTAL) 10:23: 3D mouth 3 Med ical 600 MG 59 (three) Center tablet times daily. PARoxetine 2017-0 Yes 40mg QD Take [address] (PAXIL) 40 2-23 by [facility] tablet 10:23: nightly. Medi anjleica [facility] OXcarbazepi 2017-0 Yes 600mg Q.15655961 Take [address] ne 2-23 [id number] [facility] (TRILEPTAL) 10:23: 3D mouth 3 Med ical 600 MG 59 (three) Center tablet times daily. OXcarbazepi 2017-0 Yes 600mg Q.14993761 Take [address] ne 2-23 [id number] [facility] (TRILEPTAL) 10:23: 3D mouth 3 Med ical 600 MG 59 (three) Center tablet times daily. PARoxetine 2017-0 Yes 40mg QD Take [address] (PAXIL) 40 2-23 [facility] tablet 10:23: nightly. [address] PARoxetine 2017-0 Yes 40mg QD Take [address] (PAXIL) 40 2-23 by [facility] tablet 10:23: nightly. [address] OXcarbazepi 2017-0 Yes 600mg Q.95264137 Take [address] ne 2-23 [id number] [facility] (TRILEPTAL) 10:23: 3D mouth 3 Med ical 600 MG 59 (three) Center tablet times daily. PARoxetine 2017-0 Yes 40mg QD Take [address] (PAXIL) 40 2-23 by [facility] tablet 10:23: nightly. [address] 2017-0 Yes 600mg Q.73872603 Take [address] ne 2-23 [id number] [facility] (TRILEPTAL) 10:23: 3D mouth 3 Med ical 600 MG 59 (three) Center tablet times daily. PARoxetine 2017-0 Yes 40mg QD Take [address] (PAXIL) 40 2-23 by [facility] tablet 10:23: nightly. [address] 2017-0 Yes 600mg Q.46615842 Take [address] ne 2-23 [id number] [facility] (TRILEPTAL) 10:23: 3D mouth 3 Med ical 600 MG 59 (three) Center tablet times daily. PARoxetine 2017-0 Yes 40mg QD Take [address] (PAXIL) 40 2-23 by [facility] tablet 10:23: nightly. [address] OXcarbazepi 2017-0 Yes 600mg Q.59822512 Take [address] ne 2-23 [id number] [facility] (TRILEPTAL) 10:23: 3D mouth 3 Med ical 600 MG 59 (three) Center tablet times daily. PARoxetine 2017-0 Yes 40mg QD Take [address] (PAXIL) 40 2-23 [facility] tablet 10:23: nightly. [address] 2017-0 Yes 600mg Q.11608704 Take [address] ne 2-23 [id number] [facility] (TRILEPTAL) 10:23: 3D mouth 3 Med ical 600 MG 59 (three) Center tablet times daily. PARoxetine 2017-0 Yes 40mg QD Take [address] (PAXIL) 40 2-23 by [facility] tablet 10:23: nightly. [address] OXcarbazepi 2017-0 Yes 600mg Q.56724856 Take [address] ne 2-23 [id number] [facility] (TRILEPTAL) 10:23: 3D mouth 3 Med ical 600 MG 59 (three) Center tablet times daily. PARoxetine 2017-0 Yes 40mg QD Take [address] (PAXIL) 40 2-23 by [facility] tablet 10:23: nightly. [address] 2017-0 Yes 600mg Q.98330842 Take [address] ne 2-23 [id number] [facility] (TRILEPTAL) 10:23: 3D mouth 3 Med ical 600 MG 59 (three) Center tablet times daily. PARoxetine 2017-0 Yes 40mg QD Take [address] (PAXIL) 40 2-23 by [facility] tablet 10:23: nightly. [address] 2017-0 Yes 600mg Q.23986489 Take [address] ne 2-23 [id number] [facility] (TRILEPTAL) 10:23: 3D mouth 3 Med ical 600 MG 59 (three) Center tablet times daily. PARoxetine 2017-0 Yes 40mg QD Take [address] (PAXIL) 40 2-23 by [facility] tablet 10:23: nightly. [address] OXcarbazepi 2017-0 Yes 600mg Q.36242566 Take [address] ne 2-23 [id number] [facility] (TRILEPTAL) 10:23: 3D mouth [...] Goal Plan of Care Note [code = 57984-8] Goal Plan of Care Note [code = 10436-9] Goal Plan of Care Note [code = 82546-9] Goal Plan of Care Note [code = 56905-1] Goal Plan of Care Note [code = 99076-5] Goal Plan of Care Note [code = 28729-3] Goal Plan of Care Note [code = 64945-4] Goal Plan of Care Note [code = 18731-7] Goal Plan of Care Note [code = 00854-1] Goal Plan of Care Note [code = 66985-3] Goal Plan of Care Note [code = 00395-7] Goal Plan of Care Note [code = 25327-0] Goal Plan of Care Note [code = 82328-7] Goal Plan of Care Note [code = 21815-5] Goal Plan of Care Note [code = 29636-7] Goal Plan of Care Note [code = 08533-1] Goal Plan of Care Note [code = 78734-2] Goal Plan of Care Note [code = 74236-7] Goal Plan of Care Note [code = 15330-6] Goal Plan of Care Note [code = 82534-3] Goal Plan of Care Note [code = 59270-7] Goal Plan of Care Note [code = 54411-4] Goal Plan of Care Note [code = 97251-2] Goal Plan of Care Note [code = 30624-6] Goal Plan of Care Note [code = 59067-1] Goal Plan of Care Note [code = 12384-2] Goal Plan of Care Note [code = 89382-9] Goal Plan of Care Note [code = 91063-6] Goal Plan of Care Note [code = 72656-7] Goal Plan of Care Note [code = 35173-7] Goal Plan of Care Note [code = 97796-6] Goal Plan of Care Note [code = 69885-1] Goal Plan of Care Note [code = 07514-3] Goal Plan of Care Note [code = 81309-3] Goal Plan of Care Note [code = 31631-7] Goal Plan of Care Note [code = 57972-2] Goal Plan of Care Note [code = 34520-2] Goal Plan of Care Note [code = 60311-7] Goal Plan of Care Note [code = 96913-9] Goal Plan of Care Note [code = 71397-1] Goal Plan of Care Note [code = 80857-6] Goal Plan of Care Note [code = 98238-8] Goal Plan of Care Note [code = 78414-9] Goal Plan of Care Note [code = 77526-3] Goal Plan of Care Note [code = 30850-5] Goal Plan of Care Note [code = 66485-7] Goal Plan of Care Note [code = 06604-3] Goal Plan of Care Note [code = 05784-0] Goal Plan of Care Note [code = 76123-7] Goal Plan of Care Note [code = 57350-5] Goal Plan of Care Note [code = 51971-2] Goal Plan of Care Note [code = 78288-9] Goal Plan of Care Note [code = 08688-3] Goal Plan of Care Note [code = 43225-0] Goal Plan of Care Note [code = 96805-7] Goal Plan of Care Note [code = 02046-1] Goal Plan of Care Note [code = 15299-8] Goal Plan of Care Note [code = 42151-7] Goal Plan of Care Note [code = 25413-5] Goal Plan of Care Note [code = 94790-2] Goal Plan of Care Note [code = 95353-9] Goal Plan of Care Note [code = 57142-4] Goal Plan of Care Note [code = 96994-8] Goal Plan of Care Note [code = 82676-1] Goal Plan of Care Note [code = 94931-1] Goal Plan of Care Note [code = 96338-6] Goal Plan of Care Note [code = 86972-4] Goal Plan of Care Note [code = 65286-0] Goal Plan of Care Note [code = 27259-6] Goal Plan of Care Note [code = 32479-6] Goal Plan of Care Note [code = 19231-6] Goal Plan of Care Note [code = 75253-8] Goal Plan of Care Note [code = 45353-1] Goal Plan of Care Note [code = 78990-2] Goal Plan of Care Note [code = 84024-7] Goal Plan of Care Note [code = 85402-5] Goal Plan of Care Note [code = 46867-8] Goal Plan of Care Note [code = 19829-7] Goal Plan of Care Note [code = 91017-1] Goal Plan of Care Note [code = 02789-3] Goal Plan of Care Note [code = 39383-7] Goal Plan of Care Note [code = 56315-9] Goal Plan of Care Note [code = 72827-0] Goal Plan of Care Note [code = 84200-0] Goal Plan of Care Note [code = 66013-0] Goal Plan of Care Note [code = 88464-0] Goal Plan of Care Note [code = 16749-4] Goal Plan of Care Note [code = 24665-4] Goal Plan of Care Note [code = 89443-2] Goal Plan of Care Note [code = 87160-8] Goal Plan of Care Note [code = 09998-8] Goal Plan of Care Note [code = 43428-1] Goal Plan of Care Note [code = 77707-3] Goal Plan of Care Note [code = 74700-5] Goal Plan of Care Note [code = 98631-7] Goal Plan of Care Note [code = 25376-0] Goal Plan of Care Note [code = 55639-1] Goal Plan of Care Note [code = 90047-3] Goal Plan of Care Note [code = 08866-0] Goal Plan of Care Note [code = 61173-3] Goal Plan of Care Note [code = 61561-0] Goal Plan of Care Note [code = 80841-2] Goal Plan of Care Note [code = 77324-3] Goal Plan of Care Note [code = 00824-6] Goal Plan of Care Note [code = 27212-9] Goal Plan of Care Note [code = 26111-3] Goal Plan of Care Note [code = 14218-6] Goal Plan of Care Note [code = 25581-5] Goal Plan of Care Note [code = 13077-9] Goal Plan of Care Note [code = 68533-4] Goal Plan of Care Note [code = 19558-8] Goal Plan of Care Note [code = 51568-5] Goal Plan of Care Note [code = 16694-0] Goal Plan of Care Note [code = 51807-6] Goal Plan of Care Note [code = 50581-9] Goal Plan of Care Note [code = 38022-7] Goal Plan of Care Note [code = 83923-4] Goal Plan of Care Note [code = 56973-9] Goal Plan of Care Note [code = 97724-9] Goal Plan of Care Note [code = 82303-7] Goal Plan of Care Note [code = 63902-1] Goal Plan of Care Note [code = 03145-3] Goal Plan of Care Note [code = 52399-1] Goal Plan of Care Note [code = 98335-8] Goal Plan of Care Note [code = 38262-2] Goal Plan of Care Note [code = 24812-7] Goal Plan of Care Note [code = 44983-9] Goal Plan of Care Note [code = 22999-6] Goal Plan of Care Note [code = 99634-2] Goal Plan of Care Note [code = 16154-2] Goal Plan of Care Note [code = 50774-4] Goal Plan of Care Note [code = 19045-7] Goal Plan of Care Note [code = 81476-6] Goal Plan of Care Note [code = 48602-5] Goal Plan of Care Note [code = 80499-3] Goal Plan of Care Note [code = 85483-5] Goal Plan of Care Note [code = 25038-6] Goal Plan of Care Note [code = 02358-2] Goal Plan of Care Note [code = 32332-2] Goal Plan of Care Note [code = 85771-9] Goal Plan of Care Note [code = 07168-9] Goal Plan of Care Note [code = 35243-3] Goal Plan of Care Note [code = 45797-5] Goal Plan of Care Note [code = 54808-6] Goal Plan of Care Note [code = 14050-2] Goal Plan of Care Note [code = 09402-0] Goal Plan of Care Note [code = 93058-5] Goal Plan of Care Note [code = 20506-0] Goal Plan of Care Note [code = 84237-4] Goal Plan of Care Note [code = 42024-4] Goal Plan of Care Note [code = 71182-4] Goal Plan of Care Note [code = 45324-3] Goal Plan of Care Note [code = 30228-8] Goal Plan of Care Note [code = 97635-5] Goal Plan of Care Note [code = 03857-7] Encounters Start End Encounter Admission Attending Care Care Encounter Source Date/Time Date/Time Type Type Clinicians Facility Department ID 2021-06-01 Outpatient [facility] [id number] [place] 01:36:29 [id number] [facility] 2022-01-10 2022-01-10 Outpatient [facility] [id number] Cristian 09:16:14 09:16:14 1104 F Jerman 2022-01-10 2022-01-10 Outpatient [id number]- [id number] f2 accaa6-a 00:00:00 00:00:00 Visit aca9-4c83 ca9-4c83-a -k6nr-au2 7eb-bc13f3 4y2m741c5 f032f9 2021-12-19 2021-12-19 Outpatient SFA SFA [id number] Cristian 16:11:31 16:11:31 1013 F Jerman 2021-12-19 2021-12-19 Outpatient [id number] [id number] 00:00:00 00:00:00 Visit r368-843p 770-441f-a -adae-62b amelia-62bace iovqf90sq fd81af 2021-09-17 2021-09-17 Outpatient hkt8pfmq- [id number] s5nwml-0 00:00:00 00:00:00 Visit 935a-4f50 35a-4f50-b -d34u-x1f 77d-c2ba85 [id number] 1264a6 2020-08-03 2020-08-03 Outpatient MATT VÁSQUEZ [facility] [id number] [facility] 10:00:00 10:00:00 MATT SIMPSON [facility] 2020-07-25 2020-07-25 Orders Doctor ABE [id number] 00:00:00 00:00:00 Only Unassigned, BK 350.1.13.[address] [facility] 4.2.7.2.686 [id number] 2019-09-26 2019-09-26 Outpatient R RAGHU, [facility] [id number] [facility] 16:00:00 16:00:00 WALLY [facility] 2018-10-21 2018-10-21 Telephone Gramm, [facility] [email or web address]] [id number] 00:00:00 00:00:00 Natacha Shar Nguyen 350.1.13.10 Ade 4.2.7.2.686 [place] [id number] [facility] 204 Building Results Test Description Test Time Test Comments Results Result Comments Source TSH, THIRD GENERATION 2021-06-27 05:15:49 Test Item Value Reference Range Interpretation Comme nts TSH, THIRD GENERATION (test code = 2821) 2.080 UIU/ML 0.400-4.100 HEMOGLOBIN [id number] 03:46:00 Test Item Value Reference Range Interpretation Comments HEMOGLOBIN A1c (test 6.6 % 4.2-5.6 H AMERI CAN DIABETES code = 90869) ASSOCIATION IDELINES FOR HGB A1C: PREDIABETES/INC REASED [...] INDICATED, ALL TESTING PER FORMED ATCLINICAL PATH [facility] [place] [address] [place] [address] 0[address] LABORATORY DIRE CTOR: DIANA RUSS M.D. CLIA NUMBER [id number] [place]. [id number] LIPID [id number] 02:59:52 Test Item Value Reference Range Interpretation [...] MOREINFORMATION , SEE CLIENT ANNOUNCE MENT AT [email or web address] RISK RATIO LDL/HDL 4.02 RATIO <3.22 H (test code = 2238) [id number] 00:00:00 Test Item Value Reference Range Interpretation Comments TSH, THIRD GENERATION (test code 2.080 UIU/ML = 2821) [id number] 00:00:00 Test Item Value Reference Range Interpretation Comments TSH, THIRD GENERATION (test code 2.080 UIU/ML = 2821) [id number] 00:00:00 Test Item Value Reference Range Interpretation Comments TSH, THIRD GENERATION (test code 2.080 UIU/ML = 2821) LIPID [id number] 00:00:00 Test Item Value Reference Range Interpretation Comments CHOLESTEROL (test code = 2210) 292 MG/DL TRIGLYCERIDES (test code = 2232) 184 MG/DL HDL CHOLESTEROL (test code = 2220) 51 MG/DL CALC LDL CHOL (test code = 2237) 205 MG/DL RISK RATIO LDL/HDL (test code = 4.02 RATIO 2238) LIPID [id number] 00:00:00 Test Item Value Reference Range Interpretation Comments CHOLESTEROL (test code = 2210) 292 MG/DL TRIGLYCERIDES (test code = 2232) 184 MG/DL HDL CHOLESTEROL (test code = 2220) 51 MG/DL CALC LDL CHOL (test code = 2237) 205 MG/DL RISK RATIO LDL/HDL (test code = 4.02 RATIO 2238) HEMOGLOBIN [id number] 00:00:00 Test Item Value Reference Range Interpretation Comments HEMOGLOBIN A1c (test code = 35768) 6.6 % HEMOGLOBIN [id number] 00:00:00 Test Item Value Reference Range Interpretation Comments HEMOGLOBIN A1c (test code = 21562) 6.6 % HEMOGLOBIN [id number] 00:00:00 Test Item Value Reference Range Interpretation Comments HEMOGLOBIN A1c (test code = 24725) 6.6 % [id number] 00:00:00 Test Item Value Reference Range Interpretation Comments TSH, THIRD GENERATION (test code 2.080 UIU/ML = 2821) [id number] 00:00:00 Test Item Value Reference Range Interpretation Comments TSH, THIRD GENERATION (test code 2.080 UIU/ML = 2821) LIPID [id number] 00:00:00 Test Item Value Reference Range Interpretation Comments CHOLESTEROL (test code = 2210) 292 MG/DL TRIGLYCERIDES (test code = 2232) 184 MG/DL HDL CHOLESTEROL (test code = 2220) 51 MG/DL CALC LDL CHOL (test code = 2237) 205 MG/DL RISK RATIO LDL/HDL (test code = 4.02 RATIO 2238) HEMOGLOBIN [id number] 00:00:00 Test Item Value Reference Range Interpretation Comments HEMOGLOBIN A1c (test code = 07778) 6.6 % HEMOGLOBIN [id number] 00:00:00 Test Item Value Reference Range Interpretation Comments HEMOGLOBIN A1c (test code = 25078) 6.6 % [id number] 00:00:00 Test Item Value Reference Range Interpretation Comments TSH, THIRD GENERATION (test code 2.080 UIU/ML = 2821) [id number] 00:00:00 Test Item Value Reference Range Interpretation Comments TSH, THIRD GENERATION (test code 2.080 UIU/ML = 2821) [id number] 00:00:00 Test Item Value Reference Range Interpretation Comments TSH, THIRD GENERATION (test code 2.080 UIU/ML = 2821) LIPID [id number] 00:00:00 Test Item Value Reference Range Interpretation Comments CHOLESTEROL (test code = 2210) 292 MG/DL TRIGLYCERIDES (test code = 2232) 184 MG/DL HDL CHOLESTEROL (test code = 2220) 51 MG/DL CALC LDL CHOL (test code = 2237) 205 MG/DL RISK RATIO LDL/HDL (test code = 4.02 RATIO 2238) LIPID [id number] 00:00:00 Test Item Value Reference Range Interpretation Comments CHOLESTEROL (test code = 2210) 292 MG/DL TRIGLYCERIDES (test code = 2232) 184 MG/DL HDL CHOLESTEROL (test code = 2220) 51 MG/DL CALC LDL CHOL (test code = 2237) 205 MG/DL RISK RATIO LDL/HDL (test code = 4.02 RATIO 2238) HEMOGLOBIN [id number] 00:00:00 Test Item Value Reference Range Interpretation Comments HEMOGLOBIN A1c (test code = 74417) 6.6 % HEMOGLOBIN [id number] 00:00:00 Test Item Value Reference Range Interpretation Comments HEMOGLOBIN A1c (test code = 45810) 6.6 % HEMOGLOBIN [id number] 00:00:00 Test Item Value Reference Range Interpretation Comments HEMOGLOBIN A1c (test code = 69186) 6.6 % HEMOGLOBIN [id number] 00:00:00 Test Item Value Reference Range Interpretation Comments HEMOGLOBIN A1c (test code = 94690) 6.8 % HEMOGLOBIN [id number] 00:00:00 Test Item Value Reference Range Interpretation Comments HEMOGLOBIN A1c (test code = 68183) 6.8 % HEMOGLOBIN [id number] 00:00:00 Test Item Value Reference Range Interpretation Comments HEMOGLOBIN A1c (test code = 73442) 6.8 % LIPID [id number] 00:00:00 Test Item Value Reference Range Interpretation Comments CHOLESTEROL (test code = 2210) 303 MG/DL TRIGLYCERIDES (test code = 2232) 191 MG/DL HDL CHOLESTEROL (test code = 2220) 61 MG/DL CALC LDL CHOL (test code = 2237) 205 MG/DL RISK RATIO LDL/HDL (test code = 3.36 RATIO 2238) LIPID [id number] 00:00:00 Test Item Value Reference Range Interpretation Comments CHOLESTEROL (test code = 2210) 303 MG/DL TRIGLYCERIDES (test code = 2232) 191 MG/DL HDL CHOLESTEROL (test code = 2220) 61 MG/DL CALC LDL CHOL (test code = 2237) 205 MG/DL RISK RATIO LDL/HDL (test code = 3.36 RATIO 2238) [id number] 00:00:00 Test Item Value Reference Range Interpretation Comments TSH, THIRD GENERATION (test code 0.769 UIU/ML = 2821) [id number] 00:00:00 Test Item Value Reference Range Interpretation Comments TSH, THIRD GENERATION (test code 0.769 UIU/ML = 2821) [id number] 00:00:00 Test Item Value Reference Range Interpretation Comments TSH, THIRD GENERATION (test code 0.769 UIU/ML = 2821) COMPREHENSIVE METABOLIC [id number] 00:00:00 Test Item Value Reference Range Interpretation Comments GLUCOSE (test code = 2217) 131 MG/DL BUN (test code = 2208) 13 MG/DL CREATININE (test code = 2214) 0.65 MG/DL eGFR AMER. (test code 113 ML/MIN/1.73 = 41350) eGFR NON- AMER. (test 97 ML/MIN/1.73 code = 51996) CALC BUN/CREAT (test code = 20 RATIO [...] code = 2219) 23 U/L COMPREHENSIVE METABOLIC [id number] 00:00:00 Test Item Value Reference Range Interpretation Comments GLUCOSE (test code = 2217) 131 MG/DL BUN (test code = 2208) 13 MG/DL CREATININE (test code = 2214) 0.65 MG/DL eGFR AMER. (test code 113 ML/MIN/1.73 = 85738) eGFR NON- AMER. (test 97 ML/MIN/1.73 code = 00018) CALC BUN/CREAT (test code = 20 RATIO [...] (test code = 2219) 23 U/L HEMOGLOBIN [id number] 00:00:00 Test Item Value Reference Range Interpretation Comments HEMOGLOBIN A1c (test code = 51551) 6.8 % HEMOGLOBIN [id number] 00:00:00 Test Item Value Reference Range Interpretation Comments HEMOGLOBIN A1c (test code = 56196) 6.8 % LIPID [id number] 00:00:00 Test Item Value Reference Range Interpretation Comments CHOLESTEROL (test code = 2210) 303 MG/DL TRIGLYCERIDES (test code = 2232) 191 MG/DL HDL CHOLESTEROL (test code = 2220) 61 MG/DL CALC LDL CHOL (test code = 2237) 205 MG/DL RISK RATIO LDL/HDL (test code = 3.36 RATIO 2238) [id number] 00:00:00 Test Item Value Reference Range Interpretation Comments TSH, THIRD GENERATION (test code 0.769 UIU/ML = 2821) [id number] 00:00:00 Test Item Value Reference Range Interpretation Comments TSH, THIRD GENERATION (test code 0.769 UIU/ML = 2821) COMPREHENSIVE METABOLIC [id number] 00:00:00 Test Item Value Reference Range Interpretation Comments GLUCOSE (test code = 2217) 131 MG/DL BUN (test code = 2208) 13 MG/DL CREATININE (test code = 2214) 0.65 MG/DL eGFR AMER. (test code 113 ML/MIN/1.73 = 46013) eGFR NON- AMER. (test 97 ML/MIN/1.73 code = 36282) CALC BUN/CREAT (test code = 20 RATIO [...] (test code = 2219) 23 U/L HEMOGLOBIN [id number] 00:00:00 Test Item Value Reference Range Interpretation Comments HEMOGLOBIN A1c (test code = 75872) 6.8 % HEMOGLOBIN [id number] 00:00:00 Test Item Value Reference Range Interpretation Comments HEMOGLOBIN A1c (test code = 23267) 6.8 % HEMOGLOBIN [id number] 00:00:00 Test Item Value Reference Range Interpretation Comments HEMOGLOBIN A1c (test code = 15892) 6.8 % LIPID [id number] 00:00:00 Test Item Value Reference Range Interpretation Comments CHOLESTEROL (test code = 2210) 303 MG/DL TRIGLYCERIDES (test code = 2232) 191 MG/DL HDL CHOLESTEROL (test code = 2220) 61 MG/DL CALC LDL CHOL (test code = 2237) 205 MG/DL RISK RATIO LDL/HDL (test code = 3.36 RATIO 2238) LIPID [id number] 00:00:00 Test Item Value Reference Range Interpretation Comments CHOLESTEROL (test code = 2210) 303 MG/DL TRIGLYCERIDES (test code = 2232) 191 MG/DL HDL CHOLESTEROL (test code = 2220) 61 MG/DL CALC LDL CHOL (test code = 2237) 205 MG/DL RISK RATIO LDL/HDL (test code = 3.36 RATIO 2238) [id number] 00:00:00 Test Item Value Reference Range Interpretation Comments TSH, THIRD GENERATION (test code 0.769 UIU/ML = 2821) [id number] 00:00:00 Test Item Value Reference Range Interpretation Comments TSH, THIRD GENERATION (test code 0.769 UIU/ML = 2821) [id number] 00:00:00 Test Item Value Reference Range Interpretation Comments TSH, THIRD GENERATION (test code 0.769 UIU/ML = 2821) COMPREHENSIVE METABOLIC [id number] 00:00:00 Test Item Value Reference Range Interpretation Comments GLUCOSE (test code = 2217) 131 MG/DL BUN (test code = 2208) 13 MG/DL CREATININE (test code = 2214) 0.65 MG/DL eGFR AMER. (test code 113 ML/MIN/1.73 = 89640) eGFR NON- AMER. (test 97 ML/MIN/1.73 code = 09693) CALC BUN/CREAT (test code = 20 RATIO [...] code = 2219) 23 U/L COMPREHENSIVE METABOLIC [id number] 00:00:00 Test Item Value Reference Range Interpretation Comments GLUCOSE (test code = 2217) 131 MG/DL BUN (test code = 2208) 13 MG/DL CREATININE (test code = 2214) 0.65 MG/DL eGFR AMER. (test code 113 ML/MIN/1.73 = 29042) eGFR NON- AMER. (test 97 ML/MIN/1.73 code = 20324) CALC BUN/CREAT (test code = 20 RATIO [...] (test code = 2219) 23 U/L HEMOGLOBIN [id number] 00:00:00 Test Item Value Reference Range Interpretation Comments HEMOGLOBIN A1c (test code = 10211) 6.6 % HEMOGLOBIN [id number] 00:00:00 Test Item Value Reference Range Interpretation Comments HEMOGLOBIN A1c (test code = 59769) 6.6 % HEMOGLOBIN [id number] 00:00:00 Test Item Value Reference Range Interpretation Comments HEMOGLOBIN A1c (test code = 00121) 6.6 % LIPID [id number] 00:00:00 Test Item Value Reference Range Interpretation Comments CHOLESTEROL (test code = 2210) 261 MG/DL TRIGLYCERIDES (test code = 2232) 159 MG/DL HDL CHOLESTEROL (test code = 2220) 82 MG/DL CALC LDL CHOL (test code = 2237) 150 MG/DL RISK RATIO LDL/HDL (test code = 1.83 RATIO 2238) LIPID [id number] 00:00:00 Test Item Value Reference Range Interpretation Comments CHOLESTEROL (test code = 2210) 261 MG/DL TRIGLYCERIDES (test code = 2232) 159 MG/DL HDL CHOLESTEROL (test code = 2220) 82 MG/DL CALC LDL CHOL (test code = 2237) 150 MG/DL RISK RATIO LDL/HDL (test code = 1.83 RATIO 2238) COMPREHENSIVE METABOLIC [id number] 00:00:00 Test Item Value Reference Range Interpretation Comments GLUCOSE (test code = 2217) 144 MG/DL BUN (test code = 2208) 15 MG/DL CREATININE (test code = 2214) 0.85 MG/DL eGFR AMER. (test code 87 ML/MIN/1.73 = 34211) eGFR NON- AMER. (test 75 ML/MIN/1.73 code = 08621) CALC BUN/CREAT (test code = 18 RATIO [...] code = 2219) 50 U/L COMPREHENSIVE METABOLIC [id number] 00:00:00 Test Item Value Reference Range Interpretation Comments GLUCOSE (test code = 2217) 144 MG/DL BUN (test code = 2208) 15 MG/DL CREATININE (test code = 2214) 0.85 MG/DL eGFR AMER. (test code 87 ML/MIN/1.73 = 95062) eGFR NON- AMER. (test 75 ML/MIN/1.73 code = 74588) CALC BUN/CREAT (test code = 18 RATIO [...] THYROX. BIND. CAPAC. (test code 1.1 = 72327) T4 (THYROXINE) (test code = 4.3 UG/DL 2819) CORRECTED T4 (FTI) (test code = 3.9 UG/DL 2820) TSH, THIRD GENERATION (test 18.900 UIU/ML code = 2821) THYROID II PROFILE (T3U, T4, T7, TSH)2020-05-23 00:00:00 Test Item Value Reference Range Interpretation Comments T-UPTAKE (test code = 2817) 30.2 % THYROX. BIND. CAPAC. (test code 1.1 = 37508) T4 (THYROXINE) (test code = 4.3 UG/DL 2819) CORRECTED T4 (FTI) (test code = 3.9 UG/DL 2820) TSH, THIRD GENERATION (test 18.900 UIU/ML code = 2821) HEMOGLOBIN [id number] 00:00:00 Test Item Value Reference Range Interpretation Comments HEMOGLOBIN A1c (test code = 59351) 6.6 % HEMOGLOBIN [id number] 00:00:00 Test Item Value Reference Range Interpretation Comments HEMOGLOBIN A1c (test code = 42351) 6.6 % LIPID [id number] 00:00:00 Test Item Value Reference Range Interpretation Comments CHOLESTEROL (test code = 2210) 261 MG/DL TRIGLYCERIDES (test code = 2232) 159 MG/DL HDL CHOLESTEROL (test code = 2220) 82 MG/DL CALC LDL CHOL (test code = 2237) 150 MG/DL RISK RATIO LDL/HDL (test code = 1.83 RATIO 2238) COMPREHENSIVE METABOLIC [id number] 00:00:00 Test Item Value Reference Range Interpretation Comments GLUCOSE (test code = 2217) 144 MG/DL BUN (test code = 2208) 15 MG/DL CREATININE (test code = 2214) 0.85 MG/DL eGFR AMER. (test code 87 ML/MIN/1.73 = 12364) eGFR NON- AMER. (test 75 ML/MIN/1.73 code = 03722) CALC BUN/CREAT (test code = 18 RATIO [...] THYROX. BIND. CAPAC. (test code 1.1 = 05990) T4 (THYROXINE) (test code = 4.3 UG/DL 2819) CORRECTED T4 (FTI) (test code = 3.9 UG/DL 2820) TSH, THIRD GENERATION (test 18.900 UIU/ML code = 2821) HEMOGLOBIN [id number] 00:00:00 Test Item Value Reference Range Interpretation Comments HEMOGLOBIN A1c (test code = 14031) 6.6 % HEMOGLOBIN [id number] 00:00:00 Test Item Value Reference Range Interpretation Comments HEMOGLOBIN A1c (test code = 47470) 6.6 % HEMOGLOBIN [id number] 00:00:00 Test Item Value Reference Range Interpretation Comments HEMOGLOBIN A1c (test code = 78245) 6.6 % LIPID [id number] 00:00:00 Test Item Value Reference Range Interpretation Comments CHOLESTEROL (test code = 2210) 261 MG/DL TRIGLYCERIDES (test code = 2232) 159 MG/DL HDL CHOLESTEROL (test code = 2220) 82 MG/DL CALC LDL CHOL (test code = 2237) 150 MG/DL RISK RATIO LDL/HDL (test code = 1.83 RATIO 2238) LIPID [id number] 00:00:00 Test Item Value Reference Range Interpretation Comments CHOLESTEROL (test code = 2210) 261 MG/DL TRIGLYCERIDES (test code = 2232) 159 MG/DL HDL CHOLESTEROL (test code = 2220) 82 MG/DL CALC LDL CHOL (test code = 2237) 150 MG/DL RISK RATIO LDL/HDL (test code = 1.83 RATIO 2238) COMPREHENSIVE METABOLIC [id number] 00:00:00 Test Item Value Reference Range Interpretation Comments GLUCOSE (test code = 2217) 144 MG/DL BUN (test code = 2208) 15 MG/DL CREATININE (test code = 2214) 0.85 MG/DL eGFR AMER. (test code 87 ML/MIN/1.73 = 79716) eGFR NON- AMER. (test 75 ML/MIN/1.73 code = 82670) CALC BUN/CREAT (test code = 18 RATIO [...] code = 2219) 50 U/L COMPREHENSIVE METABOLIC [id number] 00:00:00 Test Item Value Reference Range Interpretation Comments GLUCOSE (test code = 2217) 144 MG/DL BUN (test code = 2208) 15 MG/DL CREATININE (test code = 2214) 0.85 MG/DL eGFR AMER. (test code 87 ML/MIN/1.73 = 20412) eGFR NON- AMER. (test 75 ML/MIN/1.73 code = 72964) CALC BUN/CREAT (test code = 18 RATIO [...] THYROX. BIND. CAPAC. (test code 1.1 = 98967) T4 (THYROXINE) (test code = 4.3 UG/DL 2819) CORRECTED T4 (FTI) (test code = 3.9 UG/DL 2820) TSH, THIRD GENERATION (test 18.900 UIU/ML code = 2821) THYROID II PROFILE (T3U, T4, T7, TSH)2020-05-23 00:00:00 Test Item Value Reference Range Interpretation Comments T-UPTAKE (test code = 2816) 30.2 % THYROX. BIND. CAPAC. (test code 1.1 = 75120) T4 (THYROXINE) (test code = 4.3 UG/DL 2819) CORRECTED T4 (FTI) (test code = 3.9 UG/DL 2820) TSH, THIRD GENERATION (test 18.900 UIU/ML code = 2821) HEMOGLOBIN [id number] 00:00:00 Test Item Value Reference Range Interpretation Comments HEMOGLOBIN A1c (test code = 90026) 6.7 % HEMOGLOBIN [id number] 00:00:00 Test Item Value Reference Range Interpretation Comments HEMOGLOBIN A1c (test code = 95283) 6.7 % HEMOGLOBIN [id number] 00:00:00 Test Item Value Reference Range Interpretation Comments HEMOGLOBIN A1c (test code = 21883) 6.7 % LIPID [id number] 00:00:00 Test Item Value Reference Range Interpretation Comments CHOLESTEROL (test code = 2210) 267 MG/DL TRIGLYCERIDES (test code = 2232) 137 MG/DL HDL CHOLESTEROL (test code = 2220) 48 MG/DL CALC LDL CHOL (test code = 2237) 192 MG/DL RISK RATIO LDL/HDL (test code = 4.00 RATIO 2238) LIPID [id number] 00:00:00 Test Item Value Reference Range Interpretation Comments CHOLESTEROL (test code = 2210) 267 MG/DL TRIGLYCERIDES (test code = 2232) 137 MG/DL HDL CHOLESTEROL (test code = 2220) 48 MG/DL CALC LDL CHOL (test code = 2237) 192 MG/DL RISK RATIO LDL/HDL (test code = 4.00 RATIO 2238) COMPREHENSIVE METABOLIC [id number] 00:00:00 Test Item Value Reference Range Interpretation Comments GLUCOSE (test code = 2217) 155 MG/DL BUN (test code = 2208) 14 MG/DL CREATININE (test code = 2214) 0.52 MG/DL eGFR AMER. (test code 122 ML/MIN/1.73 = 42435) eGFR NON- AMER. (test 105 ML/MIN/1.73 code = 64258) CALC BUN/CREAT (test code = 27 RATIO [...] code = 2219) 27 U/L COMPREHENSIVE METABOLIC [id number] 00:00:00 Test Item Value Reference Range Interpretation Comments GLUCOSE (test code = 2217) 155 MG/DL BUN (test code = 2208) 14 MG/DL CREATININE (test code = 2214) 0.52 MG/DL eGFR AMER. (test code 122 ML/MIN/1.73 = 86969) eGFR NON- AMER. (test 105 ML/MIN/1.73 code = 26836) CALC BUN/CREAT (test code = 27 RATIO [...] THYROX. BIND. CAPAC. (test code 1.0 = 23605) T4 (THYROXINE) (test code = 4.7 UG/DL 2819) CORRECTED T4 (FTI) (test code = 4.7 UG/DL 2820) TSH, THIRD GENERATION (test code 0.201 UIU/ML = 2821) THYROID II PROFILE (T3U, T4, T7, TSH)2019 00:00:00 Test Item Value Reference Range Interpretation Comments T-UPTAKE (test code = 7) 33.1 % THYROX. BIND. CAPAC. (test code 1.0 = 50521) T4 (THYROXINE) (test code = 4.7 UG/DL 2819) CORRECTED T4 (FTI) (test code = 4.7 UG/DL 2820) TSH, THIRD GENERATION (test code 0.201 UIU/ML = 2821) HEMOGLOBIN [id number] 00:00:00 Test Item Value Reference Range Interpretation Comments HEMOGLOBIN A1c (test code = 63862) 6.7 % HEMOGLOBIN [id number] 00:00:00 Test Item Value Reference Range Interpretation Comments HEMOGLOBIN A1c (test code = 90040) 6.7 % LIPID [id number] 00:00:00 Test Item Value Reference Range Interpretation Comments CHOLESTEROL (test code = 2210) 267 MG/DL TRIGLYCERIDES (test code = 2232) 137 MG/DL HDL CHOLESTEROL (test code = 2220) 48 MG/DL CALC LDL CHOL (test code = 2237) 192 MG/DL RISK RATIO LDL/HDL (test code = 4.00 RATIO 2238) COMPREHENSIVE METABOLIC [id number] 00:00:00 Test Item Value Reference Range Interpretation Comments GLUCOSE (test code = 2217) 155 MG/DL BUN (test code = 2208) 14 MG/DL CREATININE (test code = 2214) 0.52 MG/DL eGFR AMER. (test code 122 ML/MIN/1.73 = 87745) eGFR NON- AMER. (test 105 ML/MIN/1.73 code = 50368) CALC BUN/CREAT (test code = 27 RATIO [...] THYROX. BIND. CAPAC. (test code 1.0 = 15391) T4 (THYROXINE) (test code = 4.7 UG/DL 2819) CORRECTED T4 (FTI) (test code = 4.7 UG/DL 2820) TSH, THIRD GENERATION (test code 0.201 UIU/ML = 2821) HEMOGLOBIN [id number] 00:00:00 Test Item Value Reference Range Interpretation Comments HEMOGLOBIN A1c (test code = 27277) 6.7 % HEMOGLOBIN [id number] 00:00:00 Test Item Value Reference Range Interpretation Comments HEMOGLOBIN A1c (test code = 74036) 6.7 % HEMOGLOBIN [id number] 00:00:00 Test Item Value Reference Range Interpretation Comments HEMOGLOBIN A1c (test code = 99811) 6.7 % LIPID [id number] 00:00:00 Test Item Value Reference Range Interpretation Comments CHOLESTEROL (test code = 2210) 267 MG/DL TRIGLYCERIDES (test code = 2232) 137 MG/DL HDL CHOLESTEROL (test code = 2220) 48 MG/DL CALC LDL CHOL (test code = 2237) 192 MG/DL RISK RATIO LDL/HDL (test code = 4.00 RATIO 2238) LIPID [id number] 00:00:00 Test Item Value Reference Range Interpretation Comments CHOLESTEROL (test code = 2210) 267 MG/DL TRIGLYCERIDES (test code = 2232) 137 MG/DL HDL CHOLESTEROL (test code = 2220) 48 MG/DL CALC LDL CHOL (test code = 2237) 192 MG/DL RISK RATIO LDL/HDL (test code = 4.00 RATIO 2238) COMPREHENSIVE METABOLIC [id number] 00:00:00 Test Item Value Reference Range Interpretation Comments GLUCOSE (test code = 2217) 155 MG/DL BUN (test code = 2208) 14 MG/DL CREATININE (test code = 2214) 0.52 MG/DL eGFR AMER. (test code 122 ML/MIN/1.73 = 58179) eGFR NON- AMER. (test 105 ML/MIN/1.73 code = 41337) CALC BUN/CREAT (test code = 27 RATIO [...] code = 2219) 27 U/L COMPREHENSIVE METABOLIC [id number] 00:00:00 Test Item Value Reference Range Interpretation Comments GLUCOSE (test code = 2217) 155 MG/DL BUN (test code = 2208) 14 MG/DL CREATININE (test code = 2214) 0.52 MG/DL eGFR AMER. (test code 122 ML/MIN/1.73 = 50546) eGFR NON- AMER. (test 105 ML/MIN/1.73 code = 08485) CALC BUN/CREAT (test code = 27 RATIO [...] THYROX. BIND. CAPAC. (test code 1.0 = 95553) T4 (THYROXINE) (test code = 4.7 UG/DL 2819) CORRECTED T4 (FTI) (test code = 4.7 UG/DL 2820) TSH, THIRD GENERATION (test code 0.201 UIU/ML = 2821) THYROID II PROFILE (T3U, T4, T7, TSH)2019 00:00:00 Test Item Value Reference Range Interpretation Comments T-UPTAKE (test code = 2817) 33.1 % THYROX. BIND. CAPAC. (test code 1.0 = 11486) T4 (THYROXINE) (test code = 4.7 UG/DL 2819) CORRECTED T4 (FTI) (test code = 4.7 UG/DL 2820) TSH, THIRD GENERATION (test code 0.201 UIU/ML = 2821) SARS-CoV-2 (COVID-19) by RT-PCR (HIGH RISK)2019-09-18 00:00:00 Test Item Value Reference Range Interpretation Comments SARS-CoV-2 INTERPRETATION (test NEGATIVE code = 02771) SOURCE (test code = 61854) NOT SPECIFIED SARS-CoV-2 (COVID-19) by RT-PCR (HIGH RISK)2019-09-18 00:00:00 Test Item Value Reference Range Interpretation Comments SARS-CoV-2 INTERPRETATION (test NEGATIVE code = 93225) SOURCE (test code = 57174) NOT SPECIFIED SARS-CoV-2 (COVID-19) by RT-PCR (HIGH RISK)2019-09-18 00:00:00 Test Item Value Reference Range Interpretation Comments SARS-CoV-2 INTERPRETATION (test NEGATIVE code = 47318) SOURCE (test code = 42365) NOT SPECIFIED SARS-CoV-2 (COVID-19) by RT-PCR (HIGH RISK)2019-09-18 00:00:00 Test Item Value Reference Range Interpretation Comments SARS-CoV-2 INTERPRETATION (test NEGATIVE code = 79651) SOURCE (test code = 18856) NOT SPECIFIED SARS-CoV-2 (COVID-19) by RT-PCR (HIGH RISK)2019-09-18 00:00:00 Test Item Value Reference Range Interpretation Comments SARS-CoV-2 INTERPRETATION (test NEGATIVE code = 48442) SOURCE (test code = 43093) NOT SPECIFIED [id number] 00:00:00 Test Item Value Reference Range Interpretation Comments TSH, THIRD GENERATION (test code 2.490 UIU/ML = 2821) [id number] 00:00:00 Test Item Value Reference Range Interpretation Comments TSH, THIRD GENERATION (test code 2.490 UIU/ML = 2821) [id number] 00:00:00 Test Item Value Reference Range Interpretation Comments TSH, THIRD GENERATION (test code 2.490 UIU/ML = 2821) HEMOGLOBIN [id number] 00:00:00 Test Item Value Reference Range Interpretation Comments HEMOGLOBIN A1c (test code = 35052) 6.4 % HEMOGLOBIN [id number] 00:00:00 Test Item Value Reference Range Interpretation Comments HEMOGLOBIN A1c (test code = 08602) 6.4 % HEMOGLOBIN [id number] 00:00:00 Test Item Value Reference Range Interpretation Comments HEMOGLOBIN A1c (test code = 59269) 6.4 % COMPREHENSIVE METABOLIC [id number] 00:00:00 Test Item Value Reference Range Interpretation Comments GLUCOSE (test code = 2217) 206 MG/DL BUN (test code = 2208) 23 MG/DL CREATININE (test code = 2214) 0.67 MG/DL eGFR AMER. (test code 112 ML/MIN/1.73 = 28281) eGFR NON- AMER. (test 97 ML/MIN/1.73 code = 55000) CALC BUN/CREAT (test code = 34 RATIO 5) SODIUM (test code = 2231) 142 MEQ/L [...] code = 2219) 25 U/L COMPREHENSIVE METABOLIC [id number] 00:00:00 Test Item Value Reference Range Interpretation Comments GLUCOSE (test code = 2217) 206 MG/DL BUN (test code = 2208) 23 MG/DL CREATININE (test code = 2214) 0.67 MG/DL eGFR AMER. (test code 112 ML/MIN/1.73 = 24045) eGFR NON- AMER. (test 97 ML/MIN/1.73 code = 32767) CALC BUN/CREAT (test code = 34 RATIO [...] ALT (test code = 2219) 25 U/L [id number] 00:00:00 Test Item Value Reference Range Interpretation Comments TSH, THIRD GENERATION (test code 2.490 UIU/ML = 2821) [id number] 00:00:00 Test Item Value Reference Range Interpretation Comments TSH, THIRD GENERATION (test code 2.490 UIU/ML = 2821) HEMOGLOBIN [id number] 00:00:00 Test Item Value Reference Range Interpretation Comments HEMOGLOBIN A1c (test code = 64529) 6.4 % HEMOGLOBIN [id number] 00:00:00 Test Item Value Reference Range Interpretation Comments HEMOGLOBIN A1c (test code = 79522) 6.4 % COMPREHENSIVE METABOLIC [id number] 00:00:00 Test Item Value Reference Range Interpretation Comments GLUCOSE (test code = 2217) 206 MG/DL BUN (test code = 2208) 23 MG/DL CREATININE (test code = 2214) 0.67 MG/DL eGFR AMER. (test code 112 ML/MIN/1.73 = 89314) eGFR NON- AMER. (test 97 ML/MIN/1.73 code = 09154) CALC BUN/CREAT (test code = 34 RATIO [...] ALT (test code = 2219) 25 U/L [id number] 00:00:00 Test Item Value Reference Range Interpretation Comments TSH, THIRD GENERATION (test code 2.490 UIU/ML = 2821) [id number] 00:00:00 Test Item Value Reference Range Interpretation Comments TSH, THIRD GENERATION (test code 2.490 UIU/ML = 2821) [id number] 00:00:00 Test Item Value Reference Range Interpretation Comments TSH, THIRD GENERATION (test code 2.490 UIU/ML = 2821) HEMOGLOBIN [id number] 00:00:00 Test Item Value Reference Range Interpretation Comments HEMOGLOBIN A1c (test code = 89947) 6.4 % HEMOGLOBIN [id number] 00:00:00 Test Item Value Reference Range Interpretation Comments HEMOGLOBIN A1c (test code = 25786) 6.4 % HEMOGLOBIN [id number] 00:00:00 Test Item Value Reference Range Interpretation Comments HEMOGLOBIN A1c (test code = 23885) 6.4 % COMPREHENSIVE METABOLIC [id number] 00:00:00 Test Item Value Reference Range Interpretation Comments GLUCOSE (test code = 2217) 206 MG/DL BUN (test code = 2208) 23 MG/DL CREATININE (test code = 2214) 0.67 MG/DL eGFR AMER. (test code 112 ML/MIN/1.73 = 97436) eGFR NON- AMER. (test 97 ML/MIN/1.73 code = 05243) CALC BUN/CREAT (test code = 34 RATIO [...] code = 2219) 25 U/L COMPREHENSIVE METABOLIC [id number] 00:00:00 Test Item Value Reference Range Interpretation Comments GLUCOSE (test code = 2217) 206 MG/DL BUN (test code = 2208) 23 MG/DL CREATININE (test code = 2214) 0.67 MG/DL eGFR AMER. (test code 112 ML/MIN/1.73 = 50430) eGFR NON- AMER. (test 97 ML/MIN/1.73 code = 89794) CALC BUN/CREAT (test code = 34 RATIO [...] = 2219) 25 U/L VAGINAL PATHOGENS DNA [id number] 00:00:00 Test Item Value Reference Range Interpretation Comments MARK SPECIES (test code = 19146) NEGATIVE G. VAGINALIS (test code = 93593) NEGATIVE T. VAGINALIS (test code = 76099) NEGATIVE VAGINAL PATHOGENS DNA [id number] 00:00:00 Test Item Value Reference Range Interpretation Comments MARK SPECIES (test code = 30943) NEGATIVE G. VAGINALIS (test code = 15771) NEGATIVE T. VAGINALIS (test code = 45636) NEGATIVE VAGINAL PATHOGENS DNA [id number] 00:00:00 Test Item Value Reference Range Interpretation Comments MARK SPECIES (test code = 04344) NEGATIVE G. VAGINALIS (test code = 86717) NEGATIVE T. VAGINALIS (test code = 01353) NEGATIVE VAGINAL PATHOGENS DNA [id number] 00:00:00 Test Item Value Reference Range Interpretation Comments MARK SPECIES (test code = 72000) NEGATIVE G. VAGINALIS (test code = 66362) NEGATIVE T. VAGINALIS (test code = 88661) NEGATIVE VAGINAL PATHOGENS DNA [id number] 00:00:00 Test Item Value Reference Range Interpretation Comments MARK SPECIES (test code = 74119) NEGATIVE G. VAGINALIS (test code = 97482) NEGATIVE T. VAGINALIS (test code = 43022) NEGATIVE HEMOGLOBIN A1c [ADDED]2018-12-01 00:00:00 Test Item Value Reference Range Interpretation Comments HEMOGLOBIN A1c (test code = 44398) 6.7 % HEMOGLOBIN A1c [ADDED]2018-12-01 00:00:00 Test Item Value Reference Range Interpretation Comments HEMOGLOBIN A1c (test code = 30934) 6.7 % HEMOGLOBIN A1c [ADDED]2018-12-01 00:00:00 Test Item Value Reference Range Interpretation Comments HEMOGLOBIN A1c (test code = 11279) 6.7 % COMPREHENSIVE METABOLIC PANEL [ADDED]2018-12-01 00:00:00 Test Item Value Reference Range Interpretation Comments GLUCOSE (test code = 2217) 136 MG/DL BUN (test code = 2208) 15 MG/DL CREATININE (test code = 2214) 0.64 MG/DL eGFR AMER. (test code 115 ML/MIN/1.73 = 03842) eGFR NON- AMER. (test 99 ML/MIN/1.73 code = 23383) CALC BUN/CREAT (test code = 23 RATIO [...] eGFR AMER. (test code 115 ML/MIN/1.73 = 53382) eGFR NON- AMER. (test 99 ML/MIN/1.73 code = 89129) CALC BUN/CREAT (test code = 23 RATIO [...] Interpretation Comments HEMOGLOBIN A1c (test code = 93638) 6.7 % HEMOGLOBIN A1c [ADDED]2018-12-01 00:00:00 Test Item Value Reference Range Interpretation Comments HEMOGLOBIN A1c (test code = 50056) 6.7 % COMPREHENSIVE METABOLIC PANEL [ADDED]2018-12-01 00:00:00 Test Item Value Reference Range Interpretation Comments GLUCOSE (test code = 2217) 136 MG/DL BUN (test code = 2208) 15 MG/DL CREATININE (test code = 2214) 0.64 MG/DL eGFR AMER. (test code 115 ML/MIN/1.73 = 72994) eGFR NON- AMER. (test 99 ML/MIN/1.73 code = 25872) CALC BUN/CREAT (test code = 23 RATIO [...] Interpretation Comments HEMOGLOBIN A1c (test code = 42199) 6.7 % HEMOGLOBIN A1c [ADDED]2018-12-01 00:00:00 Test Item Value Reference Range Interpretation Comments HEMOGLOBIN A1c (test code = 52046) 6.7 % HEMOGLOBIN A1c [ADDED]2018-12-01 00:00:00 Test Item Value Reference Range Interpretation Comments HEMOGLOBIN A1c (test code = 40676) 6.7 % COMPREHENSIVE METABOLIC PANEL [ADDED]2018-12-01 00:00:00 Test Item Value Reference Range Interpretation Comments GLUCOSE (test code = 2217) 136 MG/DL BUN (test code = 2208) 15 MG/DL CREATININE (test code = 2214) 0.64 MG/DL eGFR AMER. (test code 115 ML/MIN/1.73 = 11413) eGFR NON- AMER. (test 99 ML/MIN/1.73 code = 91969) CALC BUN/CREAT (test code = 23 RATIO [...] eGFR AMER. (test code 115 ML/MIN/1.73 = 61330) eGFR NON- AMER. (test 99 ML/MIN/1.73 code = 46571) CALC BUN/CREAT (test code = 23 RATIO [...] code 1.280 UIU/ML = 2821) CBC W/AUTO [id number] 00:00:00 Test Item Value Reference Range Interpretation [...] code = 1015) 346 K/UL CBC W/AUTO [id number] 00:00:00 Test Item Value Reference Range Interpretation [...] code = 1015) 346 K/UL CBC W/AUTO [id number] 00:00:00 Test Item Value Reference Range Interpretation [...] (test code = 1015) 346 K/UL HEMOGLOBIN [id number] 00:00:00 Test Item Value Reference Range Interpretation Comments HEMOGLOBIN A1c (test code = 83610) 5.9 % HEMOGLOBIN [id number] 00:00:00 Test Item Value Reference Range Interpretation Comments HEMOGLOBIN A1c (test code = 59582) 5.9 % HEMOGLOBIN [id number] 00:00:00 Test Item Value Reference Range Interpretation Comments HEMOGLOBIN A1c (test code = 04869) 5.9 % LIPID [id number] 00:00:00 Test Item Value Reference Range Interpretation Comments CHOLESTEROL (test code = 2210) 318 MG/DL TRIGLYCERIDES (test code = 2232) 263 MG/DL HDL CHOLESTEROL (test code = 2220) 51 MG/DL CALC LDL CHOL (test code = 2237) 214 MG/DL RISK RATIO LDL/HDL (test code = 4.20 RATIO 2238) LIPID [id number] 00:00:00 Test Item Value Reference Range Interpretation Comments CHOLESTEROL (test code = 2210) 318 MG/DL TRIGLYCERIDES (test code = 2232) 263 MG/DL HDL CHOLESTEROL (test code = 2220) 51 MG/DL CALC LDL CHOL (test code = 2237) 214 MG/DL RISK RATIO LDL/HDL (test code = 4.20 RATIO 2238) COMPREHENSIVE METABOLIC [id number] 00:00:00 Test Item Value Reference Range Interpretation Comments GLUCOSE (test code = 2217) 113 MG/DL BUN (test code = 2208) 18 MG/DL CREATININE (test code = 2214) 0.70 MG/DL eGFR AMER. (test code 111 ML/MIN/1.73 = 25851) eGFR NON- AMER. (test 96 ML/MIN/1.73 code = 78818) CALC BUN/CREAT (test code = 26 RATIO [...] code = 2219) 31 U/L COMPREHENSIVE METABOLIC [id number] 00:00:00 Test Item Value Reference Range Interpretation Comments GLUCOSE (test code = 2217) 113 MG/DL BUN (test code = 2208) 18 MG/DL CREATININE (test code = 2214) 0.70 MG/DL eGFR AMER. (test code 111 ML/MIN/1.73 = 51049) eGFR NON- AMER. (test 96 ML/MIN/1.73 code = 12547) CALC BUN/CREAT (test code = 26 RATIO [...] ALT (test code = 2219) 31 U/L [id number] 00:00:00 Test Item Value Reference Range Interpretation Comments TSH, THIRD GENERATION (test code 2.520 UIU/ML = 2821) [id number] 00:00:00 Test Item Value Reference Range Interpretation Comments TSH, THIRD GENERATION (test code 2.520 UIU/ML = 2821) [id number] 00:00:00 Test Item Value Reference Range Interpretation Comments TSH, THIRD GENERATION (test code 2.520 UIU/ML = 2821) CBC W/AUTO [id number] 00:00:00 Test Item Value Reference Range Interpretation [...] code = 1015) 346 K/UL CBC W/AUTO [id number] 00:00:00 Test Item Value Reference Range Interpretation [...] (test code = 1015) 346 K/UL HEMOGLOBIN [id number] 00:00:00 Test Item Value Reference Range Interpretation Comments HEMOGLOBIN A1c (test code = 52859) 5.9 % HEMOGLOBIN [id number] 00:00:00 Test Item Value Reference Range Interpretation Comments HEMOGLOBIN A1c (test code = 74819) 5.9 % LIPID [id number] 00:00:00 Test Item Value Reference Range Interpretation Comments CHOLESTEROL (test code = 2210) 318 MG/DL TRIGLYCERIDES (test code = 2232) 263 MG/DL HDL CHOLESTEROL (test code = 2220) 51 MG/DL CALC LDL CHOL (test code = 2237) 214 MG/DL RISK RATIO LDL/HDL (test code = 4.20 RATIO 2238) COMPREHENSIVE METABOLIC [id number] 00:00:00 Test Item Value Reference Range Interpretation Comments GLUCOSE (test code = 2217) 113 MG/DL BUN (test code = 2208) 18 MG/DL CREATININE (test code = 2214) 0.70 MG/DL eGFR AMER. (test code 111 ML/MIN/1.73 = 69468) eGFR NON- AMER. (test 96 ML/MIN/1.73 code = 52394) CALC BUN/CREAT (test code = 26 RATIO [...] ALT (test code = 2219) 31 U/L [id number] 00:00:00 Test Item Value Reference Range Interpretation Comments TSH, THIRD GENERATION (test code 2.520 UIU/ML = 2821) [id number] 00:00:00 Test Item Value Reference Range Interpretation Comments TSH, THIRD GENERATION (test code 2.520 UIU/ML = 2821) CBC W/AUTO [id number] 00:00:00 Test Item Value Reference Range Interpretation [...] code = 1015) 346 K/UL CBC W/AUTO [id number] 00:00:00 Test Item Value Reference Range Interpretation [...] code = 1015) 346 K/UL CBC W/AUTO [id number] 00:00:00 Test Item Value Reference Range Interpretation [...] (test code = 1015) 346 K/UL HEMOGLOBIN [id number] 00:00:00 Test Item Value Reference Range Interpretation Comments HEMOGLOBIN A1c (test code = 08598) 5.9 % HEMOGLOBIN [id number] 00:00:00 Test Item Value Reference Range Interpretation Comments HEMOGLOBIN A1c (test code = 12953) 5.9 % HEMOGLOBIN [id number] 00:00:00 Test Item Value Reference Range Interpretation Comments HEMOGLOBIN A1c (test code = 06209) 5.9 % LIPID [id number] 00:00:00 Test Item Value Reference Range Interpretation Comments CHOLESTEROL (test code = 2210) 318 MG/DL TRIGLYCERIDES (test code = 2232) 263 MG/DL HDL CHOLESTEROL (test code = 2220) 51 MG/DL CALC LDL CHOL (test code = 2237) 214 MG/DL RISK RATIO LDL/HDL (test code = 4.20 RATIO 2238) LIPID [id number] 00:00:00 Test Item Value Reference Range Interpretation Comments CHOLESTEROL (test code = 2210) 318 MG/DL TRIGLYCERIDES (test code = 2232) 263 MG/DL HDL CHOLESTEROL (test code = 2220) 51 MG/DL CALC LDL CHOL (test code = 2237) 214 MG/DL RISK RATIO LDL/HDL (test code = 4.20 RATIO 2238) COMPREHENSIVE METABOLIC [id number] 00:00:00 Test Item Value Reference Range Interpretation Comments GLUCOSE (test code = 2217) 113 MG/DL BUN (test code = 2208) 18 MG/DL CREATININE (test code = 2214) 0.70 MG/DL eGFR AMER. (test code 111 ML/MIN/1.73 = 10826) eGFR NON- AMER. (test 96 ML/MIN/1.73 code = 06782) CALC BUN/CREAT (test code = 26 RATIO [...] code = 2219) 31 U/L COMPREHENSIVE METABOLIC [id number] 00:00:00 Test Item Value Reference Range Interpretation Comments GLUCOSE (test code = 2217) 113 MG/DL BUN (test code = 2208) 18 MG/DL CREATININE (test code = 2214) 0.70 MG/DL eGFR AMER. (test code 111 ML/MIN/1.73 = 78923) eGFR NON- AMER. (test 96 ML/MIN/1.73 code = 84622) CALC BUN/CREAT (test code = 26 RATIO [...] ALT (test code = 2219) 31 U/L [id number] 00:00:00 Test Item Value Reference Range Interpretation Comments TSH, THIRD GENERATION (test code 2.520 UIU/ML = 2821) [id number] 00:00:00 Test Item Value Reference Range Interpretation Comments TSH, THIRD GENERATION (test code 2.520 UIU/ML = 2821) [id number] 00:00:00 Test Item Value Reference Range Interpretation Comments TSH, THIRD GENERATION (test code 2.520 UIU/ML = 2821) CULTURE, [id number] 00:00:00 Test Item Value Reference Range Interpretation Comments CULTURE, URINE (test SPECIMEN NUMBER: code = 71038) [id number] CULTURE, [id number] 00:00:00 Test Item Value Reference Range Interpretation Comments CULTURE, URINE (test SPECIMEN NUMBER: code = 22817) [id number] CULTURE, [id number] 00:00:00 Test Item Value Reference Range Interpretation Comments CULTURE, URINE (test SPECIMEN NUMBER: code = 34232) [id number] CULTURE, [id number] 00:00:00 Test Item Value Reference Range Interpretation Comments CULTURE, URINE (test SPECIMEN NUMBER: code = 26398) [id number] CULTURE, [id number] 00:00:00 Test Item Value Reference Range Interpretation Comments CULTURE, URINE (test SPECIMEN NUMBER: code = 79447) [id number] CULTURE, [id number] 00:00:00 Test Item Value Reference Range Interpretation Comments CULTURE, URINE (test SPECIMEN NUMBER: code = 80766) [id number] CULTURE, [id number] 00:00:00 Test Item Value Reference Range Interpretation Comments CULTURE, URINE (test SPECIMEN NUMBER: code = 99957) [id number] CULTURE, [id number] 00:00:00 Test Item Value Reference Range Interpretation Comments CULTURE, URINE (test SPECIMEN NUMBER: code = 97376) [id number] CULTURE, [id number] 00:00:00 Test Item Value Reference Range Interpretation Comments CULTURE, URINE (test SPECIMEN NUMBER: code = 00156) [id number] CULTURE, [id number] 00:00:00 Test Item Value Reference Range Interpretation Comments CULTURE, URINE (test SPECIMEN NUMBER: code = 70855) [id number] BASIC METABOLIC [id number] 00:00:00 Test Item Value Reference Range Interpretation Comments GLUCOSE (test code = 2217) 135 MG/DL BUN (test code = 2208) 25 MG/DL CREATININE (test code = 2214) 0.76 MG/DL eGFR AMER. (test code 101 ML/MIN/1.73 = 12770) eGFR NON- AMER. (test 87 ML/MIN/1.73 code = 13679) SODIUM (test code = 2231) 139 MEQ/L POTASSIUM (test code = 2228) 4.7 MEQ/L CHLORIDE (test code = 2215) 99 MEQ/L CARBON DIOXIDE (test code = 26 MEQ/L 2206) CALCIUM (test code = 2209) 9.4 MG/DL BASIC METABOLIC [id number] 00:00:00 Test Item Value Reference Range Interpretation Comments GLUCOSE (test code = 2217) 135 MG/DL BUN (test code = 2208) 25 MG/DL CREATININE (test code = 2214) 0.76 MG/DL eGFR AMER. (test code 101 ML/MIN/1.73 = 27758) eGFR NON- AMER. (test 87 ML/MIN/1.73 code = 40021) SODIUM (test code = 2231) 139 MEQ/L POTASSIUM (test code = 2228) 4.7 MEQ/L CHLORIDE (test code = 2215) 99 MEQ/L CARBON DIOXIDE (test code = 26 MEQ/L 2206) CALCIUM (test code = 2209) 9.4 MG/DL LIPID [id number] 00:00:00 Test Item Value Reference Range Interpretation Comments CHOLESTEROL (test code = 2210) 262 MG/DL TRIGLYCERIDES (test code = 2232) 300 MG/DL HDL CHOLESTEROL (test code = 2220) 36 MG/DL CALC LDL CHOL (test code = 2237) 166 MG/DL RISK RATIO LDL/HDL (test code = 4.61 RATIO 2238) LIPID [id number] 00:00:00 Test Item Value Reference Range Interpretation Comments CHOLESTEROL (test code = 2210) 262 MG/DL TRIGLYCERIDES (test code = 2232) 300 MG/DL HDL CHOLESTEROL (test code = 2220) 36 MG/DL CALC LDL CHOL (test code = 2237) 166 MG/DL RISK RATIO LDL/HDL (test code = 4.61 RATIO 2238) HEMOGLOBIN [id number] 00:00:00 Test Item Value Reference Range Interpretation Comments HEMOGLOBIN A1c (test code = 75744) 6.2 % HEMOGLOBIN [id number] 00:00:00 Test Item Value Reference Range Interpretation Comments HEMOGLOBIN A1c (test code = 65284) 6.2 % HEMOGLOBIN [id number] 00:00:00 Test Item Value Reference Range Interpretation Comments HEMOGLOBIN A1c (test code = 71832) 6.2 % [id number] 00:00:00 Test Item Value Reference Range Interpretation Comments TSH, THIRD GENERATION (test code 0.988 UIU/ML = 2821) [id number] 00:00:00 Test Item Value Reference Range Interpretation Comments TSH, THIRD GENERATION (test code 0.988 UIU/ML = 2821) [id number] 00:00:00 Test Item Value Reference Range Interpretation Comments TSH, THIRD GENERATION (test code 0.988 UIU/ML = 2821) BASIC METABOLIC [id number] 00:00:00 Test Item Value Reference Range Interpretation Comments GLUCOSE (test code = 2217) 135 MG/DL BUN (test code = 2208) 25 MG/DL CREATININE (test code = 2214) 0.76 MG/DL eGFR AMER. (test code 101 ML/MIN/1.73 = 81896) eGFR NON- AMER. (test 87 ML/MIN/1.73 code = 90571) SODIUM (test code = 2231) 139 MEQ/L POTASSIUM (test code = 2228) 4.7 MEQ/L CHLORIDE (test code = 2215) 99 MEQ/L CARBON DIOXIDE (test code = 26 MEQ/L 2206) CALCIUM (test code = 2209) 9.4 MG/DL LIPID [id number] 00:00:00 Test Item Value Reference Range Interpretation Comments CHOLESTEROL (test code = 2210) 262 MG/DL TRIGLYCERIDES (test code = 2232) 300 MG/DL HDL CHOLESTEROL (test code = 2220) 36 MG/DL CALC LDL CHOL (test code = 2237) 166 MG/DL RISK RATIO LDL/HDL (test code = 4.61 RATIO 2238) HEMOGLOBIN [id number] 00:00:00 Test Item Value Reference Range Interpretation Comments HEMOGLOBIN A1c (test code = 73323) 6.2 % HEMOGLOBIN [id number] 00:00:00 Test Item Value Reference Range Interpretation Comments HEMOGLOBIN A1c (test code = 12743) 6.2 % [id number] 00:00:00 Test Item Value Reference Range Interpretation Comments TSH, THIRD GENERATION (test code 0.988 UIU/ML = 2821) [id number] 00:00:00 Test Item Value Reference Range Interpretation Comments TSH, THIRD GENERATION (test code 0.988 UIU/ML = 2821) BASIC METABOLIC [id number] 00:00:00 Test Item Value Reference Range Interpretation Comments GLUCOSE (test code = 2217) 135 MG/DL BUN (test code = 2208) 25 MG/DL CREATININE (test code = 2214) 0.76 MG/DL eGFR AMER. (test code 101 ML/MIN/1.73 = 53522) eGFR NON- AMER. (test 87 ML/MIN/1.73 code = 69080) SODIUM (test code = 2231) 139 MEQ/L POTASSIUM (test code = 2228) 4.7 MEQ/L CHLORIDE (test code = 2215) 99 MEQ/L CARBON DIOXIDE (test code = 26 MEQ/L 2206) CALCIUM (test code = 2209) 9.4 MG/DL BASIC METABOLIC [id number] 00:00:00 Test Item Value Reference Range Interpretation Comments GLUCOSE (test code = 2217) 135 MG/DL BUN (test code = 2208) 25 MG/DL CREATININE (test code = 2214) 0.76 MG/DL eGFR AMER. (test code 101 ML/MIN/1.73 = 99183) eGFR NON- AMER. (test 87 ML/MIN/1.73 code = 23151) SODIUM (test code = 2231) 139 MEQ/L POTASSIUM (test code = 2228) 4.7 MEQ/L CHLORIDE (test code = 2215) 99 MEQ/L CARBON DIOXIDE (test code = 26 MEQ/L 2206) CALCIUM (test code = 2209) 9.4 MG/DL LIPID [id number] 00:00:00 Test Item Value Reference Range Interpretation Comments CHOLESTEROL (test code = 2210) 262 MG/DL TRIGLYCERIDES (test code = 2232) 300 MG/DL HDL CHOLESTEROL (test code = 2220) 36 MG/DL CALC LDL CHOL (test code = 2237) 166 MG/DL RISK RATIO LDL/HDL (test code = 4.61 RATIO 2238) LIPID [id number] 00:00:00 Test Item Value Reference Range Interpretation Comments CHOLESTEROL (test code = 2210) 262 MG/DL TRIGLYCERIDES (test code = 2232) 300 MG/DL HDL CHOLESTEROL (test code = 2220) 36 MG/DL CALC LDL CHOL (test code = 2237) 166 MG/DL RISK RATIO LDL/HDL (test code = 4.61 RATIO 2238) HEMOGLOBIN [id number] 00:00:00 Test Item Value Reference Range Interpretation Comments HEMOGLOBIN A1c (test code = 24204) 6.2 % HEMOGLOBIN [id number] 00:00:00 Test Item Value Reference Range Interpretation Comments HEMOGLOBIN A1c (test code = 34555) 6.2 % HEMOGLOBIN [id number] 00:00:00 Test Item Value Reference Range Interpretation Comments HEMOGLOBIN A1c (test code = 55846) 6.2 % [id number] 00:00:00 Test Item Value Reference Range Interpretation Comments TSH, THIRD GENERATION (test code 0.988 UIU/ML = 2821) [id number] 00:00:00 Test Item Value Reference Range Interpretation Comments TSH, THIRD GENERATION (test code 0.988 UIU/ML = 2821) [id number] 00:00:00 Test Item Value Reference Range Interpretation Comments TSH, THIRD GENERATION (test code 0.988 UIU/ML = 2821) COMPREHENSIVE METABOLIC [id number] 00:00:00 Test Item Value Reference Range Interpretation Comments GLUCOSE (test code = 2217) 109 MG/DL BUN (test code = 2208) 25 MG/DL CREATININE (test code = 2214) 0.78 MG/DL eGFR AMER. (test code 98 ML/MIN/1.73 = 11509) eGFR NON- AMER. (test 84 ML/MIN/1.73 code = 46699) CALC BUN/CREAT (test code = 32 RATIO [...] code = 2219) 25 U/L COMPREHENSIVE METABOLIC [id number] 00:00:00 Test Item Value Reference Range Interpretation Comments GLUCOSE (test code = 2217) 109 MG/DL BUN (test code = 2208) 25 MG/DL CREATININE (test code = 2214) 0.78 MG/DL eGFR AMER. (test code 98 ML/MIN/1.73 = 49519) eGFR NON- AMER. (test 84 ML/MIN/1.73 code = 33007) CALC BUN/CREAT (test code = 32 RATIO [...] (test code = 2219) 25 U/L LIPID [id number] 00:00:00 Test Item Value Reference Range Interpretation Comments CHOLESTEROL (test code = 2210) 295 MG/DL TRIGLYCERIDES (test code = 2232) 218 MG/DL HDL CHOLESTEROL (test code = 2220) 46 MG/DL CALC LDL CHOL (test code = 2237) 205 MG/DL RISK RATIO LDL/HDL (test code = 4.47 RATIO 2238) LIPID [id number] 00:00:00 Test Item Value Reference Range Interpretation Comments CHOLESTEROL (test code = 2210) 295 MG/DL TRIGLYCERIDES (test code = 2232) 218 MG/DL HDL CHOLESTEROL (test code = 2220) 46 MG/DL CALC LDL CHOL (test code = 2237) 205 MG/DL RISK RATIO LDL/HDL (test code = 4.47 RATIO 2238) HEMOGLOBIN [id number] 00:00:00 Test Item Value Reference Range Interpretation Comments HEMOGLOBIN A1c (test code = 62383) 7.0 % HEMOGLOBIN [id number] 00:00:00 Test Item Value Reference Range Interpretation Comments HEMOGLOBIN A1c (test code = 31692) 7.0 % HEMOGLOBIN [id number] 00:00:00 Test Item Value Reference Range Interpretation Comments HEMOGLOBIN A1c (test code = 66413) 7.0 % [id number] 00:00:00 Test Item Value Reference Range Interpretation Comments TSH, THIRD GENERATION (test code 0.565 UIU/ML = 2821) [id number] 00:00:00 Test Item Value Reference Range Interpretation Comments TSH, THIRD GENERATION (test code 0.565 UIU/ML = 2821) [id number] 00:00:00 Test Item Value Reference Range Interpretation Comments TSH, THIRD GENERATION (test code 0.565 UIU/ML = 2821) COMPREHENSIVE METABOLIC [id number] 00:00:00 Test Item Value Reference Range Interpretation Comments GLUCOSE (test code = 2217) 109 MG/DL BUN (test code = 2208) 25 MG/DL CREATININE (test code = 2214) 0.78 MG/DL eGFR AMER. (test code 98 ML/MIN/1.73 = 76272) eGFR NON- AMER. (test 84 ML/MIN/1.73 code = 36218) CALC BUN/CREAT (test code = 32 RATIO [...] (test code = 2219) 25 U/L LIPID [id number] 00:00:00 Test Item Value Reference Range Interpretation Comments CHOLESTEROL (test code = 2210) 295 MG/DL TRIGLYCERIDES (test code = 2232) 218 MG/DL HDL CHOLESTEROL (test code = 2220) 46 MG/DL CALC LDL CHOL (test code = 2237) 205 MG/DL RISK RATIO LDL/HDL (test code = 4.47 RATIO 2238) HEMOGLOBIN [id number] 00:00:00 Test Item Value Reference Range Interpretation Comments HEMOGLOBIN A1c (test code = 90358) 7.0 % HEMOGLOBIN [id number] 00:00:00 Test Item Value Reference Range Interpretation Comments HEMOGLOBIN A1c (test code = 54177) 7.0 % [id number] 00:00:00 Test Item Value Reference Range Interpretation Comments TSH, THIRD GENERATION (test code 0.565 UIU/ML = 2821) [id number] 00:00:00 Test Item Value Reference Range Interpretation Comments TSH, THIRD GENERATION (test code 0.565 UIU/ML = 2821) COMPREHENSIVE METABOLIC [id number] 00:00:00 Test Item Value Reference Range Interpretation Comments GLUCOSE (test code = 2217) 109 MG/DL BUN (test code = 2208) 25 MG/DL CREATININE (test code = 2214) 0.78 MG/DL eGFR AMER. (test code 98 ML/MIN/1.73 = 03941) eGFR NON- AMER. (test 84 ML/MIN/1.73 code = 89465) CALC BUN/CREAT (test code = 32 RATIO [...] code = 2219) 25 U/L COMPREHENSIVE METABOLIC [id number] 00:00:00 Test Item Value Reference Range Interpretation Comments GLUCOSE (test code = 2217) 109 MG/DL BUN (test code = 2208) 25 MG/DL CREATININE (test code = 2214) 0.78 MG/DL eGFR AMER. (test code 98 ML/MIN/1.73 = 76993) eGFR NON- AMER. (test 84 ML/MIN/1.73 code = 95905) CALC BUN/CREAT (test code = 32 RATIO [...] (test code = 2219) 25 U/L LIPID [id number] 00:00:00 Test Item Value Reference Range Interpretation Comments CHOLESTEROL (test code = 2210) 295 MG/DL TRIGLYCERIDES (test code = 2232) 218 MG/DL HDL CHOLESTEROL (test code = 2220) 46 MG/DL CALC LDL CHOL (test code = 2237) 205 MG/DL RISK RATIO LDL/HDL (test code = 4.47 RATIO 2238) LIPID [id number] 00:00:00 Test Item Value Reference Range Interpretation Comments CHOLESTEROL (test code = 2210) 295 MG/DL TRIGLYCERIDES (test code = 2232) 218 MG/DL HDL CHOLESTEROL (test code = 2220) 46 MG/DL CALC LDL CHOL (test code = 2237) 205 MG/DL RISK RATIO LDL/HDL (test code = 4.47 RATIO 2238) HEMOGLOBIN [id number] 00:00:00 Test Item Value Reference Range Interpretation Comments HEMOGLOBIN A1c (test code = 12640) 7.0 % HEMOGLOBIN [id number] 00:00:00 Test Item Value Reference Range Interpretation Comments HEMOGLOBIN A1c (test code = 34936) 7.0 % HEMOGLOBIN [id number] 00:00:00 Test Item Value Reference Range Interpretation Comments HEMOGLOBIN A1c (test code = 08779) 7.0 % [id number] 00:00:00 Test Item Value Reference Range Interpretation Comments TSH, THIRD GENERATION (test code 0.565 UIU/ML = 2821) [id number] 00:00:00 Test Item Value Reference Range Interpretation Comments TSH, THIRD GENERATION (test code 0.565 UIU/ML = 2821) [id number] 00:00:00 Test Item Value Reference Range Interpretation Comments TSH, THIRD GENERATION (test code 0.565 UIU/ML = 2821) [id number] 00:00:00 Test Item Value Reference Range Interpretation Comments TSH, THIRD GENERATION (test code 0.379 UIU/ML = 2821) [id number] 00:00:00 Test Item Value Reference Range Interpretation Comments TSH, THIRD GENERATION (test code 0.379 UIU/ML = 2821) [id number] 00:00:00 Test Item Value Reference Range Interpretation Comments TSH, THIRD GENERATION (test code 0.379 UIU/ML = 2821) [id number] 00:00:00 Test Item Value Reference Range Interpretation Comments TSH, THIRD GENERATION (test code 0.379 UIU/ML = 2821) [id number] 00:00:00 Test Item Value Reference Range Interpretation Comments TSH, THIRD GENERATION (test code 0.379 UIU/ML = 2821) [id number] 00:00:00 Test Item Value Reference Range Interpretation Comments TSH, THIRD GENERATION (test code 0.379 UIU/ML = 2821) [id number] 00:00:00 Test Item Value Reference Range Interpretation Comments TSH, THIRD GENERATION (test code 0.379 UIU/ML = 2821) [id number] 00:00:00 Test Item Value Reference Range Interpretation Comments TSH, THIRD GENERATION (test code 0.379 UIU/ML = 2821) CULTURE, [id number] 00:00:00 Test Item Value Reference Range Interpretation Comments CULTURE, URINE (test SPECIMEN NUMBER: code = 45738) [id number] CULTURE, [id number] 00:00:00 Test Item Value Reference Range Interpretation Comments CULTURE, URINE (test SPECIMEN NUMBER: code = 72250) [id number] CULTURE, [id number] 00:00:00 Test Item Value Reference Range Interpretation Comments CULTURE, URINE (test SPECIMEN NUMBER: code = 55676) [id number] CULTURE, [id number] 00:00:00 Test Item Value Reference Range Interpretation Comments CULTURE, URINE (test SPECIMEN NUMBER: code = 62289) [id number] CULTURE, [id number] 00:00:00 Test Item Value Reference Range Interpretation Comments CULTURE, URINE (test SPECIMEN NUMBER: code = 06043) [id number] COMPREHENSIVE METABOLIC [id number] 00:00:00 Test Item Value Reference Range Interpretation Comments GLUCOSE (test code = 2217) 128 MG/DL BUN (test code = 2208) 26 MG/DL CREATININE (test code = 2214) 0.92 MG/DL eGFR AMER. (test code 81 ML/MIN/1.73 = 36665) eGFR NON- AMER. (test 70 ML/MIN/1.73 code = 38441) CALC BUN/CREAT (test code = 28 RATIO [...] code = 2219) 29 U/L COMPREHENSIVE METABOLIC [id number] 00:00:00 Test Item Value Reference Range Interpretation Comments GLUCOSE (test code = 2217) 128 MG/DL BUN (test code = 2208) 26 MG/DL CREATININE (test code = 2214) 0.92 MG/DL eGFR AMER. (test code 81 ML/MIN/1.73 = 90691) eGFR NON- AMER. (test 70 ML/MIN/1.73 code = 73030) CALC BUN/CREAT (test code = 28 RATIO [...] code = 2219) 29 U/L ACUTE HEPATITIS [id number] 00:00:00 Test Item Value Reference Range Interpretation Comments HEPATITIS A IgM (test code = NON-REACTIVE 59092) HEPATITIS B CORE IgM (test code NON-REACTIVE = 4644) HEPATITIS B SURF AG (test code = NON-REACTIVE 2739) HEPATITIS C ANTIBODY (test code NON-REACTIVE = 4675) INTERPRETATION HEPATITIS A: (NOTE) (test code = 2552) INTERPRETATION HEPATITIS B: (NOTE) (test code = 37720) INTERPRETATION HEPATITIS C: (NOTE) (test code = 66512) ACUTE HEPATITIS [id number] 00:00:00 Test Item Value Reference Range Interpretation Comments HEPATITIS A IgM (test code = NON-REACTIVE 62996) HEPATITIS B CORE IgM (test code NON-REACTIVE = 4644) HEPATITIS B SURF AG (test code = NON-REACTIVE 2739) HEPATITIS C ANTIBODY (test code NON-REACTIVE = 4675) INTERPRETATION HEPATITIS A: (NOTE) (test code = 2552) INTERPRETATION HEPATITIS B: (NOTE) (test code = 67785) INTERPRETATION HEPATITIS C: (NOTE) (test code = 35213) [id number] 00:00:00 Test Item Value Reference Range Interpretation Comments AMYLASE (test code = 2205) 32 U/L [id number] 00:00:00 Test Item Value Reference Range Interpretation Comments AMYLASE (test code = 2205) 32 U/L [id number] 00:00:00 Test Item Value Reference Range Interpretation Comments LIPASE (test code = 2058) 22 U/L [id number] 00:00:00 Test Item Value Reference Range Interpretation Comments LIPASE (test code = 2058) 22 U/L [id number] 00:00:00 Test Item Value Reference Range Interpretation Comments LIPASE (test code = 2058) 22 U/L COMPREHENSIVE METABOLIC [id number] 00:00:00 Test Item Value Reference Range Interpretation Comments GLUCOSE (test code = 2217) 128 MG/DL BUN (test code = 2208) 26 MG/DL CREATININE (test code = 2214) 0.92 MG/DL eGFR AMER. (test code 81 ML/MIN/1.73 = 99690) eGFR NON- AMER. (test 70 ML/MIN/1.73 code = 55472) CALC BUN/CREAT (test code = 28 RATIO [...] code = 2219) 29 U/L ACUTE HEPATITIS [id number] 00:00:00 Test Item Value Reference Range Interpretation Comments HEPATITIS A IgM (test code = NON-REACTIVE 37877) HEPATITIS B CORE IgM (test code NON-REACTIVE = 5484) HEPATITIS B SURF AG (test code = NON-REACTIVE 6277) HEPATITIS C ANTIBODY (test code NON-REACTIVE = 5396) INTERPRETATION HEPATITIS A: (NOTE) (test code = 2552) INTERPRETATION HEPATITIS B: (NOTE) (test code = 39797) INTERPRETATION HEPATITIS C: (NOTE) (test code = 50107) [id number] 00:00:00 Test Item Value Reference Range Interpretation Comments AMYLASE (test code = 2205) 32 U/L [id number] 00:00:00 Test Item Value Reference Range Interpretation Comments LIPASE (test code = 2058) 22 U/L [id number] 00:00:00 Test Item Value Reference Range Interpretation Comments LIPASE (test code = 2058) 22 U/L COMPREHENSIVE METABOLIC [id number] 00:00:00 Test Item Value Reference Range Interpretation Comments GLUCOSE (test code = 2217) 128 MG/DL BUN (test code = 2208) 26 MG/DL CREATININE (test code = 2214) 0.92 MG/DL eGFR AMER. (test code 81 ML/MIN/1.73 = 44352) eGFR NON- AMER. (test 70 ML/MIN/1.73 code = 84195) CALC BUN/CREAT (test code = 28 RATIO [...] code = 2219) 29 U/L COMPREHENSIVE METABOLIC [id number] 00:00:00 Test Item Value Reference Range Interpretation Comments GLUCOSE (test code = 2217) 128 MG/DL BUN (test code = 2208) 26 MG/DL CREATININE (test code = 2214) 0.92 MG/DL eGFR AMER. (test code 81 ML/MIN/1.73 = 76818) eGFR NON- AMER. (test 70 ML/MIN/1.73 code = 04182) CALC BUN/CREAT (test code = 28 RATIO [...] code = 2219) 29 U/L ACUTE HEPATITIS [id number] 00:00:00 Test Item Value Reference Range Interpretation Comments HEPATITIS A IgM (test code = NON-REACTIVE 97531) HEPATITIS B CORE IgM (test code NON-REACTIVE = 4644) HEPATITIS B SURF AG (test code = NON-REACTIVE 2739) HEPATITIS C ANTIBODY (test code NON-REACTIVE = 4675) INTERPRETATION HEPATITIS A: (NOTE) (test code = 2552) INTERPRETATION HEPATITIS B: (NOTE) (test code = 32605) INTERPRETATION HEPATITIS C: (NOTE) (test code = 77335) ACUTE HEPATITIS [id number] 00:00:00 Test Item Value Reference Range Interpretation Comments HEPATITIS A IgM (test code = NON-REACTIVE 07027) HEPATITIS B CORE IgM (test code NON-REACTIVE = 4644) HEPATITIS B SURF AG (test code = NON-REACTIVE 2739) HEPATITIS C ANTIBODY (test code NON-REACTIVE = 4675) INTERPRETATION HEPATITIS A: (NOTE) (test code = 2552) INTERPRETATION HEPATITIS B: (NOTE) (test code = 43583) INTERPRETATION HEPATITIS C: (NOTE) (test code = 21895) [id number] 00:00:00 Test Item Value Reference Range Interpretation Comments AMYLASE (test code = 2205) 32 U/L [id number] 00:00:00 Test Item Value Reference Range Interpretation Comments AMYLASE (test code = 2205) 32 U/L [id number] 00:00:00 Test Item Value Reference Range Interpretation Comments LIPASE (test code = 2057) 22 U/L [id number] 00:00:00 Test Item Value Reference Range Interpretation Comments LIPASE (test code = 2057) 22 U/L [id number] 00:00:00 Test Item Value Reference Range Interpretation Comments LIPASE (test code = 2057) 22 U/L [id number] 00:00:00 Test Item Value Reference Range Interpretation Comments TSH, THIRD GENERATION (test code 4.890 UIU/ML = 2821) [id number] 00:00:00 Test Item Value Reference Range Interpretation Comments TSH, THIRD GENERATION (test code 4.890 UIU/ML = 2821) [id number] 00:00:00 Test Item Value Reference Range Interpretation Comments TSH, THIRD GENERATION (test code 4.890 UIU/ML = 2821) COMPREHENSIVE METABOLIC [id number] 00:00:00 Test Item Value Reference Range Interpretation Comments GLUCOSE (test code = 2217) 121 MG/DL BUN (test code = 2208) 40 MG/DL CREATININE (test code = 2214) 1.48 MG/DL eGFR AMER. (test code 45 ML/MIN/1.73 = 53191) eGFR NON- AMER. (test 39 ML/MIN/1.73 code = 88021) CALC BUN/CREAT (test code = 27 RATIO [...] code = 2219) 20 U/L COMPREHENSIVE METABOLIC [id number] 00:00:00 Test Item Value Reference Range Interpretation Comments GLUCOSE (test code = 2217) 121 MG/DL BUN (test code = 2208) 40 MG/DL CREATININE (test code = 2214) 1.48 MG/DL eGFR AMER. (test code 45 ML/MIN/1.73 = 38104) eGFR NON- AMER. (test 39 ML/MIN/1.73 code = 36134) CALC BUN/CREAT (test code = 27 RATIO [...] ALT (test code = 2219) 20 U/L [id number] 00:00:00 Test Item Value Reference Range Interpretation Comments TSH, THIRD GENERATION (test code 4.890 UIU/ML = 2821) [id number] 00:00:00 Test Item Value Reference Range Interpretation Comments TSH, THIRD GENERATION (test code 4.890 UIU/ML = 2821) COMPREHENSIVE METABOLIC [id number] 00:00:00 Test Item Value Reference Range Interpretation Comments GLUCOSE (test code = 2217) 121 MG/DL BUN (test code = 2208) 40 MG/DL CREATININE (test code = 2214) 1.48 MG/DL eGFR AMER. (test code 45 ML/MIN/1.73 = 48483) eGFR NON- AMER. (test 39 ML/MIN/1.73 code = 75311) CALC BUN/CREAT (test code = 27 RATIO [...] ALT (test code = 2219) 20 U/L [id number] 00:00:00 Test Item Value Reference Range Interpretation Comments TSH, THIRD GENERATION (test code 4.890 UIU/ML = 2821) [id number] 00:00:00 Test Item Value Reference Range Interpretation Comments TSH, THIRD GENERATION (test code 4.890 UIU/ML = 2821) [id number] 00:00:00 Test Item Value Reference Range Interpretation Comments TSH, THIRD GENERATION (test code 4.890 UIU/ML = 2821) COMPREHENSIVE METABOLIC [id number] 00:00:00 Test Item Value Reference Range Interpretation Comments GLUCOSE (test code = 2217) 121 MG/DL BUN (test code = 2208) 40 MG/DL CREATININE (test code = 2214) 1.48 MG/DL eGFR AMER. (test code 45 ML/MIN/1.73 = 80714) eGFR NON- AMER. (test 39 ML/MIN/1.73 code = 71551) CALC BUN/CREAT (test code = 27 RATIO [...] code = 2219) 20 U/L COMPREHENSIVE METABOLIC [id number] 00:00:00 Test Item Value Reference Range Interpretation Comments GLUCOSE (test code = 2217) 121 MG/DL BUN (test code = 2208) 40 MG/DL CREATININE (test code = 2214) 1.48 MG/DL eGFR AMER. (test code 45 ML/MIN/1.73 = 56709) eGFR NON- AMER. (test 39 ML/MIN/1.73 code = 47445) CALC BUN/CREAT (test code = 27 RATIO [...] (test code = 2219) 20 U/L LIPID [id number] 00:00:00 Test Item Value Reference Range Interpretation Comments CHOLESTEROL (test code = 2210) 261 MG/DL TRIGLYCERIDES (test code = 2232) 165 MG/DL HDL CHOLESTEROL (test code = 2220) 58 MG/DL CALC LDL CHOL (test code = 2237) 170 MG/DL RISK RATIO LDL/HDL (test code = 2.93 RATIO 2238) LIPID [id number] 00:00:00 Test Item Value Reference Range Interpretation Comments CHOLESTEROL (test code = 2210) 261 MG/DL TRIGLYCERIDES (test code = 2232) 165 MG/DL HDL CHOLESTEROL (test code = 2220) 58 MG/DL CALC LDL CHOL (test code = 2237) 170 MG/DL RISK RATIO LDL/HDL (test code = 2.93 RATIO 2238) CBC W/AUTO [id number] 00:00:00 Test Item Value Reference Range Interpretation [...] code = 1015) 378 K/UL CBC W/AUTO [id number] 00:00:00 Test Item Value Reference Range Interpretation [...] code = 1015) 378 K/UL CBC W/AUTO [id number] 00:00:00 Test Item Value Reference Range Interpretation [...] (test code = 1015) 378 K/UL HEMOGLOBIN [id number] 00:00:00 Test Item Value Reference Range Interpretation Comments HEMOGLOBIN A1c (test code = 42002) 6.4 % HEMOGLOBIN [id number] 00:00:00 Test Item Value Reference Range Interpretation Comments HEMOGLOBIN A1c (test code = 42516) 6.4 % HEMOGLOBIN [id number] 00:00:00 Test Item Value Reference Range Interpretation Comments HEMOGLOBIN A1c (test code = 04958) 6.4 % [id number] 00:00:00 Test Item Value Reference Range Interpretation Comments TSH (test code = 2821) 5.290 UIU/ML [id number] 00:00:00 Test Item Value Reference Range Interpretation Comments TSH (test code = 2821) 5.290 UIU/ML [id number] 00:00:00 Test Item Value Reference Range Interpretation Comments TSH (test code = 2821) 5.290 UIU/ML LIPID [id number] 00:00:00 Test Item Value Reference Range Interpretation Comments CHOLESTEROL (test code = 2210) 261 MG/DL TRIGLYCERIDES (test code = 2232) 165 MG/DL HDL CHOLESTEROL (test code = 2220) 58 MG/DL CALC LDL CHOL (test code = 2237) 170 MG/DL RISK RATIO LDL/HDL (test code = 2.93 RATIO 2238) CBC W/AUTO [id number] 00:00:00 Test Item Value Reference Range Interpretation [...] code = 1015) 378 K/UL CBC W/AUTO [id number] 00:00:00 Test Item Value Reference Range Interpretation [...] (test code = 1015) 378 K/UL HEMOGLOBIN [id number] 00:00:00 Test Item Value Reference Range Interpretation Comments HEMOGLOBIN A1c (test code = 30735) 6.4 % HEMOGLOBIN [id number] 00:00:00 Test Item Value Reference Range Interpretation Comments HEMOGLOBIN A1c (test code = 04632) 6.4 % [id number] 00:00:00 Test Item Value Reference Range Interpretation Comments TSH (test code = 2821) 5.290 UIU/ML [id number] 00:00:00 Test Item Value Reference Range Interpretation Comments TSH (test code = 2821) 5.290 UIU/ML LIPID [id number] 00:00:00 Test Item Value Reference Range Interpretation Comments CHOLESTEROL (test code = 2210) 261 MG/DL TRIGLYCERIDES (test code = 2232) 165 MG/DL HDL CHOLESTEROL (test code = 2220) 58 MG/DL CALC LDL CHOL (test code = 2237) 170 MG/DL RISK RATIO LDL/HDL (test code = 2.93 RATIO 2238) LIPID [id number] 00:00:00 Test Item Value Reference Range Interpretation Comments CHOLESTEROL (test code = 2210) 261 MG/DL TRIGLYCERIDES (test code = 2232) 165 MG/DL HDL CHOLESTEROL (test code = 2220) 58 MG/DL CALC LDL CHOL (test code = 2237) 170 MG/DL RISK RATIO LDL/HDL (test code = 2.93 RATIO 2238) CBC W/AUTO [id number] 00:00:00 Test Item Value Reference Range Interpretation [...] code = 1015) 378 K/UL CBC W/AUTO [id number] 00:00:00 Test Item Value Reference Range Interpretation [...] code = 1015) 378 K/UL CBC W/AUTO [id number] 00:00:00 Test Item Value Reference Range Interpretation [...] (test code = 1015) 378 K/UL HEMOGLOBIN [id number] 00:00:00 Test Item Value Reference Range Interpretation Comments HEMOGLOBIN A1c (test code = 70547) 6.4 % HEMOGLOBIN [id number] 00:00:00 Test Item Value Reference Range Interpretation Comments HEMOGLOBIN A1c (test code = 08873) 6.4 % HEMOGLOBIN [id number] 00:00:00 Test Item Value Reference Range Interpretation Comments HEMOGLOBIN A1c (test code = 84208) 6.4 % [id number] 00:00:00 Test Item Value Reference Range Interpretation Comments TSH (test code = 2821) 5.290 UIU/ML [id number] 00:00:00 Test Item Value Reference Range Interpretation Comments TSH (test code = 2821) 5.290 UIU/ML [id number] 00:00:00 Test Item Value Reference Range Interpretation [...] code = 2821) 1.030 UIU/ML COMPREHENSIVE METABOLIC [id number] 00:00:00 Test Item Value Reference Range Interpretation Comments GLUCOSE (test code = 2217) 106 MG/DL BUN (test code = 2208) 23 MG/DL CREATININE (test code = 2214) 0.66 MG/DL eGFR AMER. (test code 114 ML/MIN/1.73 = 70675) eGFR NON- AMER. (test 99 ML/MIN/1.73 code = 28400) CALC BUN/CREAT (test code = 35 RATIO [...] code = 2219) 31 U/L COMPREHENSIVE METABOLIC [id number] 00:00:00 Test Item Value Reference Range Interpretation Comments GLUCOSE (test code = 2217) 106 MG/DL BUN (test code = 2208) 23 MG/DL CREATININE (test code = 2214) 0.66 MG/DL eGFR AMER. (test code 114 ML/MIN/1.73 = 79769) eGFR NON- AMER. (test 99 ML/MIN/1.73 code = 63716) CALC BUN/CREAT (test code = 35 RATIO [...] code = 2821) 0.335 UIU/ML COMPREHENSIVE METABOLIC [id number] 00:00:00 Test Item Value Reference Range Interpretation Comments GLUCOSE (test code = 2217) 106 MG/DL BUN (test code = 2208) 23 MG/DL CREATININE (test code = 2214) 0.66 MG/DL eGFR AMER. (test code 114 ML/MIN/1.73 = 49058) eGFR NON- AMER. (test 99 ML/MIN/1.73 code = 14896) CALC BUN/CREAT (test code = 35 RATIO [...] code = 2821) 0.335 UIU/ML COMPREHENSIVE METABOLIC [id number] 00:00:00 Test Item Value Reference Range Interpretation Comments GLUCOSE (test code = 2217) 106 MG/DL BUN (test code = 2208) 23 MG/DL CREATININE (test code = 2214) 0.66 MG/DL eGFR AMER. (test code 114 ML/MIN/1.73 = 13214) eGFR NON- AMER. (test 99 ML/MIN/1.73 code = 21696) CALC BUN/CREAT (test code = 35 RATIO [...] code = 2219) 31 U/L COMPREHENSIVE METABOLIC [id number] 00:00:00 Test Item Value Reference Range Interpretation Comments GLUCOSE (test code = 2217) 106 MG/DL BUN (test code = 2208) 23 MG/DL CREATININE (test code = 2214) 0.66 MG/DL eGFR AMER. (test code 114 ML/MIN/1.73 = 87957) eGFR NON- AMER. (test 99 ML/MIN/1.73 code = 21036) CALC BUN/CREAT (test code = 35 RATIO [...] code = 2821) 0.335 UIU/ML COMPREHENSIVE METABOLIC [id number] 00:00:00 Test Item Value Reference Range Interpretation Comments GLUCOSE (test code = 2217) 103 MG/DL BUN (test code = 2208) 15 MG/DL CREATININE (test code = 2214) 0.77 MG/DL eGFR AMER. (test code 101 ML/MIN/1.73 = 06123) eGFR NON- AMER. (test 87 ML/MIN/1.73 code = 27205) CALC BUN/CREAT (test code = 19 RATIO 2235) SODIUM (test code = 2231) 136 MEQ/L POTASSIUM (test code = 2228) 4.7 MEQ/L CHLORIDE (test code = 2215) 94 MEQ/L CARBON DIOXIDE (test code = 27 MEQ/L 2205) CALCIUM (test code = 2209) 9.4 MG/DL PROTEIN, TOTAL (test code = 6.4 G/DL ) ALBUMIN (test code = 2201) 4.3 G/DL CALC GLOBULIN (test code = 2.1 G/DL 2240) CALC A/G RATIO (test code = 2.0 RATIO 2234) BILIRUBIN, TOTAL (test code = 0.1 MG/DL 2206) ALKALINE PHOSPHATASE (test 83 U/L code = 2204) AST (test code = 2218) 15 U/L ALT (test code = 2219) 24 U/L COMPREHENSIVE METABOLIC [id number] 00:00:00 Test Item Value Reference Range Interpretation Comments GLUCOSE (test code = 2217) 103 MG/DL BUN (test code = 2208) 15 MG/DL CREATININE (test code = 2214) 0.77 MG/DL eGFR AMER. (test code 101 ML/MIN/1.73 = 08160) eGFR NON- AMER. (test 87 ML/MIN/1.73 code = 23485) CALC BUN/CREAT (test code = 19 RATIO [...] code = 2821) 0.424 UIU/ML COMPREHENSIVE METABOLIC [id number] 00:00:00 Test Item Value Reference Range Interpretation Comments GLUCOSE (test code = 2217) 103 MG/DL BUN (test code = 2208) 15 MG/DL CREATININE (test code = 2214) 0.77 MG/DL eGFR AMER. (test code 101 ML/MIN/1.73 = 94764) eGFR NON- AMER. (test 87 ML/MIN/1.73 code = 64762) CALC BUN/CREAT (test code = 19 RATIO [...] code = 2821) 0.424 UIU/ML COMPREHENSIVE METABOLIC [id number] 00:00:00 Test Item Value Reference Range Interpretation Comments GLUCOSE (test code = 2217) 103 MG/DL BUN (test code = 2208) 15 MG/DL CREATININE (test code = 2214) 0.77 MG/DL eGFR AMER. (test code 101 ML/MIN/1.73 = 96743) eGFR NON- AMER. (test 87 ML/MIN/1.73 code = 79007) CALC BUN/CREAT (test code = 19 RATIO [...] code = 2219) 24 U/L COMPREHENSIVE METABOLIC [id number] 00:00:00 Test Item Value Reference Range Interpretation Comments GLUCOSE (test code = 2217) 103 MG/DL BUN (test code = 2208) 15 MG/DL CREATININE (test code = 2214) 0.77 MG/DL eGFR AMER. (test code 101 ML/MIN/1.73 = 03483) eGFR NON- AMER. (test 87 ML/MIN/1.73 code = 92720) CALC BUN/CREAT (test code = 19 RATIO [...] (test code = 2821) 0.424 UIU/ML CULTURE, [id number] 00:00:00 Test Item Value Reference Range Interpretation Comments CULTURE, URINE (test SPECIMEN NUMBER: code = 98211) [id number] CULTURE, [id number] 00:00:00 Test Item Value Reference Range Interpretation Comments CULTURE, URINE (test SPECIMEN NUMBER: code = 37692) [id number] CULTURE, [id number] 00:00:00 Test Item Value Reference Range Interpretation Comments CULTURE, URINE (test SPECIMEN NUMBER: code = 83581) [id number] CULTURE, [id number] 00:00:00 Test Item Value Reference Range Interpretation Comments CULTURE, URINE (test SPECIMEN NUMBER: code = 38187) [id number] CULTURE, [id number] 00:00:00 Test Item Value Reference Range Interpretation Comments CULTURE, URINE (test SPECIMEN NUMBER: code = 04610) [id number] CULTURE, [id number] 00:00:00 Test Item Value Reference Range Interpretation Comments CULTURE, URINE (test SPECIMEN NUMBER: code = 78490) [id number] CULTURE, [id number] 00:00:00 Test Item Value Reference Range Interpretation Comments CULTURE, URINE (test SPECIMEN NUMBER: code = 92063) [id number] CULTURE, [id number] 00:00:00 Test Item Value Reference Range Interpretation Comments CULTURE, URINE (test SPECIMEN NUMBER: code = 48960) [id number] CULTURE, [id number] 00:00:00 Test Item Value Reference Range Interpretation Comments CULTURE, URINE (test SPECIMEN NUMBER: code = 24557) [id number] CULTURE, [id number] 00:00:00 Test Item Value Reference Range Interpretation Comments CULTURE, URINE (test SPECIMEN NUMBER: code = 82434) [id number]
--- NOTE | 2022-02-09 09:46 | EDPHYS ---
Physician Documentation [facility] Name: Jaimie Amanda Age: 61 yrs Sex: Female : 1960 Arrival Date: 02/09/2022 Time: 09:00 Bed DIS1 Private MD: ED Physician Diego Ramirez HPI: 02/09 09:42 This 61 yrs old Female presents to ER via Ambulatory with complaints of hannah Abdominal Pain. 09:42 The patient presents with abdominal pain in the right upper quadrant. Onset: The hannah symptoms/episode began/occurred 2 day(s) ago. The symptoms do not radiate. Associated signs and symptoms: none. The symptoms are described as achy. Modifying factors: The symptoms are alleviated by nothing, the symptoms are aggravated by nothing. Severity of pain: At its worst the pain was mild in the emergency department the pain is unchanged. The patient has not experienced similar symptoms in the past. Historical: - Allergies: 09:36 No Known Allergies; iw - PMHx: 09:36 Alcoholism; Anxiety; Hypertensive disorder; Hypothyroidism; low NA; NIDDM; Chronic iw abdominal pain; - PSHx: 09:36 Thyroidectomy; iw - Immunization history:: Adult Immunizations up to date, Client reports receiving the 2nd dose of the Covid vaccine, Last tetanus immunization: up to date. - Social history:: Smoking status: Patient reports the use of cigarette tobacco products, smokes one-half pack cigarettes per day. - Family history:: not pertinent. ROS: 09:42 Constitutional: Negative for fever, chills, and weight loss, Eyes: Negative for injury, hannah pain, redness, and discharge, ENT: Negative for injury, pain, and discharge, Neck: Negative for injury, pain, and swelling, Cardiovascular: Negative for chest pain, palpitations, and edema, Respiratory: Negative for shortness of breath, cough, wheezing, and pleuritic chest pain, Back: Negative for injury and pain, : Negative for injury, bleeding, discharge, and swelling, MS/Extremity: Negative for injury and deformity, Skin: Negative for injury, rash, and discoloration, Neuro: Negative for headache, weakness, numbness, tingling, and seizure, Psych: Negative for depression, anxiety, suicide ideation, homicidal ideation, and hallucinations, Allergy/Immunology: Negative for hives, rash, and allergies, Endocrine: Negative for neck swelling, polydipsia, polyuria, polyphagia, and marked weight changes, Hematologic/Lymphatic: Negative for swollen nodes, abnormal bleeding, and unusual bruising. 09:42 Abdomen/GI: Positive for abdominal pain, of the right upper quadrant. Exam: 09:42 Constitutional: This is a well developed, well nourished patient who is awake, alert, hannah and in no acute distress. Head/Face: Normocephalic, atraumatic. Eyes: Pupils equal round and reactive to light, extra-ocular motions intact. Lids and lashes normal. Conjunctiva and sclera are non-icteric and not injected. Cornea within normal limits. Periorbital areas with no swelling, redness, or edema. ENT: Nares patent. No nasal discharge, no septal abnormalities noted. Tympanic membranes are normal and external auditory canals are clear. Oropharynx with no redness, swelling, or masses, exudates, or evidence of obstruction, uvula midline. Mucous membranes moist. Neck: Trachea midline, no thyromegaly or masses palpated, and no cervical lymphadenopathy. Supple, full range of motion without nuchal rigidity, or vertebral point tenderness. No Meningismus. Chest/axilla: Normal chest wall appearance and motion. Nontender with no deformity. No lesions are appreciated. Cardiovascular: Regular rate and rhythm with a normal S1 and S2. No gallops, murmurs, or rubs. Normal PMI, no JVD. No pulse deficits. Respiratory: Lungs have equal breath sounds bilaterally, clear to auscultation and percussion. No rales, rhonchi or wheezes noted. No increased work of breathing, no retractions or nasal flaring. Back: No spinal tenderness. No costovertebral tenderness. Full range of motion. Female : Normal external genitalia. Skin: Warm, dry with normal turgor. Normal color with no rashes, no lesions, and no evidence of cellulitis. MS/ Extremity: Pulses equal, no cyanosis. Neurovascular intact. Full, normal range of motion. Neuro: Awake and alert, GCS 15, oriented to person, place, time, and situation. Cranial nerves II-XII grossly intact. Motor strength 5/5 in all extremities. Sensory grossly intact. Cerebellar exam normal. Normal gait. Psych: Awake, alert, with orientation to person, place and time. Behavior, mood, and affect are within normal limits. 09:42 Abdomen/GI: Inspection: abdomen appears normal, Bowel sounds: normal, Palpation: abdomen is soft and non-tender, Liver: is firm, Hernia: not appreciated. Vital Signs: 09:36 BP 123 / 69; Pulse 64; Resp 20; Temp 97.6; Pulse Ox 100% ; Weight 72.57 kg; Height 5 iw ft. 7 in. (170.18 cm); Pain 9/10; 09:36 Body Mass Index 25.06 (72.57 kg, 170.18 cm) iw MDM: 09:00 Patient medically screened. hannah 09:44 Differential diagnosis: non-specific abd pain. Data reviewed: vital signs, nurses hannah notes. Data interpreted: playground monitor: not applicable for this patient encounter. rate is 64 beats/min, rhythm is regular, Pulse oximetry: on room air is 100 %. Counseling: I had a detailed discussion with the patient and/or guardian regarding: the historical points, exam findings, and any diagnostic results supporting the discharge/admit diagnosis, the need for outpatient follow up, for definitive care, a family practitioner, a volleyball coach. Administered Medications: No medications were administered Disposition Summary: 02/09/22 09:45 Discharge Ordered Location: Home hannah Problem: new hannah Symptoms: have improved hannah Condition: Stable hannah Diagnosis - Abdominal pain, Generalized hannah - Abdominal pain, unspecified hannah - Anxiety disorder, unspecified hannah Followup: hannah - With: Private Physician - When: 2 - 3 days - Reason: Recheck today's complaints, Continuance of care, Re-evaluation by your physician Followup: hannah - With: Nataliia Flores MD - When: 2 - 3 days - Reason: Recheck today's complaints, Re-evaluation by your physician Discharge Instructions: - Discharge Summary Sheet hannah - Abdominal Pain, Adult hannah - Abdominal Pain, Adult, [id number] hannah - Generalized Anxiety Disorder, Adult hannah Forms: - Medication Reconciliation Form hannah - Thank You Letter hannah - Antibiotic Education hannah - Prescription Opioid Use hannah Signatures: Diego Ramirez MD MD cha Williams, Irene, RN RN iw
--- NOTE | 2022-02-09 09:46 | ER ---
Nurse's Notes [facility] Name: Jaimie Amanda Age: 61 yrs Sex: Female : 1960 Arrival Date: 02/09/2022 Time: 09:00 Bed DIS1 Private MD: Diagnosis: Abdominal pain, Generalized;Abdominal pain, unspecified;Anxiety disorder, unspecified Presentation: 02/09 09:34 Chief complaint: Patient states: RUQ abdominal pain that is unchanged from pt's iw previous ER evaluation yesterday. Denies vomiting and diarrhea. Coronavirus screen: Vaccine status: Patient reports receiving the 2nd dose of the covid vaccine. Client denies travel out of the [place] in the last 14 days. Ebola Screen: Patient negative for fever greater than or equal to 101.5 degrees Fahrenheit, and additional compatible Ebola Virus Disease symptoms Patient denies exposure to infectious person. Patient denies travel to an Ebola-affected area in the 21 days before illness onset. Initial Sepsis Screen: Does the patient meet any 2 criteria? No. Patient's initial sepsis screen is negative. Does the patient have a suspected source of infection? No. Patient's initial sepsis screen is negative. Risk Assessment: Do you want to hurt yourself or someone else? Patient reports no desire to harm self or others. Onset of symptoms is unknown. 09:34 Method Of Arrival: Ambulatory iw 09:34 Acuity: ZHEN 3 iw Triage Assessment: 09:36 General: Appears in no apparent distress. Behavior is cooperative, crying. Pain: iw Complains of pain in right upper quadrant Pain does not radiate. Pain currently is 9 out of 10 on a pain scale. Quality of pain is described as sharp. GI: Reports upper abdominal pain, Patient currently denies nausea, vomiting. Historical: - Allergies: 09:36 No Known Allergies; iw - PMHx: 09:36 Alcoholism; Anxiety; Hypertensive disorder; Hypothyroidism; low NA; NIDDM; Chronic iw abdominal pain; - PSHx: 09:36 Thyroidectomy; iw - Immunization history:: Adult Immunizations up to date, Client reports receiving the 2nd dose of the Covid vaccine, Last tetanus immunization: up to date. - Social history:: Smoking status: Patient reports the use of cigarette tobacco products, smokes one-half pack cigarettes per day. - Family history:: not pertinent. Vital Signs: 09:36 BP 123 / 69; Pulse 64; Resp 20; Temp 97.6; Pulse Ox 100% ; Weight 72.57 kg; Height 5 iw ft. 7 in. (170.18 cm); Pain 9/10; 09:36 Body Mass Index 25.06 (72.57 kg, 170.18 cm) ED Course: 09:00 Patient arrived in ED. rg4 09:00 Diego Ramirez MD is Attending Physician. hannah 09:36 Triage completed. iw 09:36 Arm band placed on left wrist. iw 09:46 Nataliia Flores MD is Referral Physician. hannah Administered Medications: No medications were administered Outcome: 09:45 Discharge ordered by . hannah 10:06 Patient left the ED. mm9 Signatures: Diego Ramirez MD MD cha Williams, Irene, RN Alejandra Cheek 4 Angelica Marley mm9
[2022-02-09 10:10] VITALS: BP 123/69; TEMP 97.6; O2SAT 100
== END 2022-02-09 10:06 | disposition home or self-care (01) ==
LOC: ER 08:57
DX: R10.84 Generalized abdominal pain (principal); F41.9 Anxiety disorder, unspecified; F10.20 Alcohol dependence, uncomplicated; I10 Essential (primary) hypertension; F17.210 Nicotine dependence, cigarettes, uncomplicated
CPT/HCPCS: 99281

== ENCOUNTER → 2022-02-10 | Emergency (ER) | payer OTHER ==
[~2022-02-10] MED LIST changes: -KETOROLAC 30 MG/ML INJ ONE; -LORAZEPAM 1 MG TABLET ONE; -MORPHINE 4 MG/ML SYR ONE; -NA CHLORIDE 0.9% 1,000 ML ONE; -ONDANSETRON 4 MG/2 ML VIAL ONE; +PROMETHAZINE INJ 25 MG/ML AMP ONE
--- OUTSIDE RECORDS SUMMARY | 2022-02-10 15:52 | XMS REPORT | Continuity of Care Document ---
:1960 Author Organization [facility] t Address [address] [place] [address] Care Team Providers Name Role Phone Jacinda George Primary Care Physician [phone] MATT SIMPSON Attending Clinician Unavailable MATT SIMPSON Attending Clinician Unavailable Doctor Unassigned, [place] Attending Clinician Unavailable WALLY KRISHNAMURTHY Attending Clinician Unavailable Natacha Brewster Attending Clinician Payers Payer Name Policy Type Policy Number Effective Date Expiration Date Sarina castelan [facility] JESSICA [id number] 2017 00:00:00 PLUS Problems This patient has [...] s TRANSDER 5-21 ity of MAL 00:00: [place] 00 [facility] ACETAMIN DRUG Active Other-Cmnt Univ ers OPHEN INGREDI 07-27 ity of 00:00: [place] 00 [facility] Hmg-Coa Propensi Inactiv Reductas [...] Goal Plan of Care Note [code = 69168-5] Goal Plan of Care Note [code = 35650-0] Goal Plan of Care Note [code = 13031-0] Goal Plan of Care Note [code = 54761-7] Goal Plan of Care Note [code = 34082-4] Goal Plan of Care Note [code = 13914-5] Goal Plan of Care Note [code = 22002-6] Goal Plan of Care Note [code = 32132-9] Goal Plan of Care Note [code = 72227-2] Goal Plan of Care Note [code = 20188-8] Goal Plan of Care Note [code = 98086-8] Goal Plan of Care Note [code = 24832-1] Goal Plan of Care Note [code = 71910-3] Goal Plan of Care Note [code = 24083-7] Goal Plan of Care Note [code = 70648-3] Goal Plan of Care Note [code = 89599-5] Goal Plan of Care Note [code = 24130-6] Goal Plan of Care Note [code = 08334-2] Goal Plan of Care Note [code = 23438-8] Goal Plan of Care Note [code = 46068-5] Goal Plan of Care Note [code = 51835-8] Goal Plan of Care Note [code = 15458-3] Goal Plan of Care Note [code = 12760-6] Goal Plan of Care Note [code = 85583-5] Goal Plan of Care Note [code = 41003-3] Goal Plan of Care Note [code = 28514-9] Goal Plan of Care Note [code = 30852-1] Goal Plan of Care Note [code = 98402-8] Goal Plan of Care Note [code = 39849-3] Goal Plan of Care Note [code = 57405-3] Goal Plan of Care Note [code = 86207-6] Goal Plan of Care Note [code = 95077-4] Goal Plan of Care Note [code = 46351-0] Goal Plan of Care Note [code = 93575-1] Goal Plan of Care Note [code = 33184-1] Goal Plan of Care Note [code = 97320-3] Goal Plan of Care Note [code = 58053-9] Goal Plan of Care Note [code = 78343-5] Goal Plan of Care Note [code = 53128-7] Goal Plan of Care Note [code = 69626-6] Goal Plan of Care Note [code = 48594-4] Goal Plan of Care Note [code = 08995-6] Goal Plan of Care Note [code = 64974-5] Goal Plan of Care Note [code = 54926-6] Goal Plan of Care Note [code = 02718-4] Goal Plan of Care Note [code = 10803-6] Goal Plan of Care Note [code = 81943-1] Goal Plan of Care Note [code = 41253-3] Goal Plan of Care Note [code = 74457-3] Goal Plan of Care Note [code = 77446-6] Goal Plan of Care Note [code = 91414-9] Goal Plan of Care Note [code = 12644-8] Goal Plan of Care Note [code = 46450-8] Goal Plan of Care Note [code = 39950-2] Goal Plan of Care Note [code = 29642-9] Goal Plan of Care Note [code = 79124-0] Goal Plan of Care Note [code = 45830-6] Goal Plan of Care Note [code = 99758-1] Goal Plan of Care Note [code = 09435-5] Goal Plan of Care Note [code = 75349-1] Goal Plan of Care Note [code = 56032-9] Goal Plan of Care Note [code = 58570-1] Goal Plan of Care Note [code = 80582-8] Goal Plan of Care Note [code = 90990-5] Goal Plan of Care Note [code = 22066-2] Goal Plan of Care Note [code = 31485-7] Goal Plan of Care Note [code = 55285-1] Goal Plan of Care Note [code = 63844-6] Goal Plan of Care Note [code = 35278-9] Goal Plan of Care Note [code = 44920-1] Goal Plan of Care Note [code = 41888-4] Goal Plan of Care Note [code = 43868-9] Goal Plan of Care Note [code = 41286-6] Goal Plan of Care Note [code = 10836-8] Goal Plan of Care Note [code = 74888-6] Goal Plan of Care Note [code = 39219-8] Goal Plan of Care Note [code = 36001-3] Goal Plan of Care Note [code = 15586-3] Goal Plan of Care Note [code = 96662-1] Goal Plan of Care Note [code = 06821-1] Goal Plan of Care Note [code = 87987-6] Goal Plan of Care Note [code = 24157-6] Goal Plan of Care Note [code = 81544-6] Goal Plan of Care Note [code = 03323-3] Goal Plan of Care Note [code = 67890-9] Goal Plan of Care Note [code = 79891-7] Goal Plan of Care Note [code = 20427-6] Goal Plan of Care Note [code = 55466-9] Goal Plan of Care Note [code = 11979-7] Goal Plan of Care Note [code = 30686-7] Goal Plan of Care Note [code = 84401-1] Goal Plan of Care Note [code = 36633-4] Goal Plan of Care Note [code = 68447-1] Goal Plan of Care Note [code = 52186-0] Goal Plan of Care Note [code = 35135-3] Goal Plan of Care Note [code = 50081-7] Goal Plan of Care Note [code = 62182-7] Goal Plan of Care Note [code = 05844-5] Goal Plan of Care Note [code = 96478-4] Goal Plan of Care Note [code = 03869-0] Goal Plan of Care Note [code = 32205-9] Goal Plan of Care Note [code = 82037-0] Goal Plan of Care Note [code = 14174-5] Goal Plan of Care Note [code = 55529-3] Goal Plan of Care Note [code = 91386-6] Goal Plan of Care Note [code = 76522-8] Goal Plan of Care Note [code = 89084-8] Goal Plan of Care Note [code = 90997-6] Goal Plan of Care Note [code = 82655-2] Goal Plan of Care Note [code = 81453-6] Goal Plan of Care Note [code = 63173-2] Goal Plan of Care Note [code = 18943-9] Goal Plan of Care Note [code = 94326-5] Goal Plan of Care Note [code = 80810-2] Goal Plan of Care Note [code = 16589-5] Goal Plan of Care Note [code = 17340-7] Goal Plan of Care Note [code = 28593-7] Goal Plan of Care Note [code = 94643-3] Goal Plan of Care Note [code = 03021-6] Goal Plan of Care Note [code = 58644-8] Goal Plan of Care Note [code = 13819-5] Goal Plan of Care Note [code = 83245-4] Goal Plan of Care Note [code = 73958-5] Goal Plan of Care Note [code = 52250-6] Goal Plan of Care Note [code = 40031-6] Goal Plan of Care Note [code = 69949-9] Goal Plan of Care Note [code = 47944-8] Goal Plan of Care Note [code = 38831-1] Goal Plan of Care Note [code = 26889-0] Goal Plan of Care Note [code = 13013-4] Goal Plan of Care Note [code = 57189-9] Goal Plan of Care Note [code = 52889-8] Goal Plan of Care Note [code = 44833-8] Goal Plan of Care Note [code = 08412-2] Goal Plan of Care Note [code = 58746-3] Goal Plan of Care Note [code = 76177-3] Goal Plan of Care Note [code = 22730-0] Goal Plan of Care Note [code = 46318-5] Goal Plan of Care Note [code = 32751-9] Goal Plan of Care Note [code = 13276-8] Goal Plan of Care Note [code = 59403-8] Goal Plan of Care Note [code = 98123-1] Goal Plan of Care Note [code = 84133-0] Goal Plan of Care Note [code = 40131-6] Goal Plan of Care Note [code = 99822-9] Goal Plan of Care Note [code = 91100-6] Goal Plan of Care Note [code = 90372-0] Goal Plan of Care Note [code = 96996-2] Goal Plan of Care Note [code = 43553-9] Goal Plan of Care Note [code = 54953-2] Goal Plan of Care Note [code = 36773-1] Goal Plan of Care Note [code = 80091-3] Goal Plan of Care Note [code = 63352-4] Goal Plan of Care Note [code = 51272-2] Goal Plan of Care Note [code = 07213-7] Encounters Start End Encounter Admission Attending Care Care Encounter Source Date/Time Date/Time Type Type Clinicians Facility Department ID 2021-06-01 Outpatient [facility] [id number] [place] 01:36:29 [id number] [facility] 2022-02-10 2022-02-10 Outpatient SFA SFA [id number] Cristian 09:29:34 09:29:34 1205 F Jerman 2022-01-10 2022-01-10 Outpatient SFA SFA [id number] 022 Cristian 09:16:14 09:16:14 1104 F Jerman 2022-01-10 2022-01-10 Outpatient q8fwkyi0- [id number] f2 accaa6-a 00:00:00 00:00:00 Visit aca9-4c83 ca9-4c83-a -x5ya-al6 7eb-bc13f3 2h8c855s6 f032f9 2021-12-19 2021-12-19 Outpatient SFA SFA [id number] 022 Cristian 16:11:31 16:11:31 1013 F Jerman 2021-12-19 2021-12-19 Outpatient [id number]- [id number] 466cae-a 00:00:00 00:00:00 Visit e998-986x 770-441f-a -adae-62b amelia-62bace mcquc74qa fd81af 2021-09-17 2021-09-17 Outpatient tsl3qwfr- [id number] aa a7gadu-4 00:00:00 00:00:00 Visit 935a-4f50 35a-4f50-b -r01n-z0q 77d-c2ba85 g247301i5 1264a6 2020-08-03 2020-08-03 Outpatient MATT VÁSQUEZ [facility] [id number] Univers 10:00:00 10:00:00 MATT SIMPSON [facility] 2020-07-25 2020-07-25 Orders Doctor FISH [id number] 00:00:00 00:00:00 Only Unassigned, [place] 350.1.13.10 [place] [facility] 4.2.7.2.686 [id number] 2019-09-26 2019-09-26 Outpatient Bertin KRISHNAMURTHY [facility] [id number] Univers 16:00:00 16:00:00 WALLY [facility] 2018-10-21 2018-10-21 Telephone [place], [facility] [id number] 00:00:00 00:00:00 Natacha Nguyen 350.1.13.10 [place] 4.2.7.2.686 [place] [id number] nal 204 Building Results Test Description Test Time Test Comments Results Result Comments Source TSH, THIRD GENERATION 2021-06-27 05:15:49 Test Item Value Reference Range Interpretation Comme nts TSH, THIRD GENERATION (test code = 2821) 2.080 UIU/ML 0.400-4.100 HEMOGLOBIN [id number] 03:46:00 Test Item Value Reference Range Interpretation Comments HEMOGLOBIN A1c (test 6.6 % 4.2-5.6 H AMERIC AN DIABETES code = 88711) ASSOCIATION IDELINES FOR HGB A1C: PREDIABETES/INC REASED [...] INDICATED, ALL TESTING PER FORMED ATCLINICAL PATH [facility]. [address] [place] [address] 20 LABORATORY DIRE CTOR: DIANA RUSS M.D. CLIA NUMBER [id number] [facility] [place]. [id number] LIPID [id number] 02:59:52 Test Item Value Reference Range Interpretation [...] MOREINFORMATION , SEE CLIENT ANNOUNCE MENT AT [email or web address] RISK RATIO LDL/HDL 4.02 RATIO <3.22 H (test code = 2238) [id number] 00:00:00 Test Item Value Reference Range Interpretation Comments TSH, THIRD GENERATION (test code 2.080 UIU/ML = 2821) [id number] 00:00:00 Test Item Value Reference Range Interpretation Comments TSH, THIRD GENERATION (test code 2.080 UIU/ML = 2821) [id number] 00:00:00 Test Item Value Reference Range Interpretation Comments TSH, THIRD GENERATION (test code 2.080 UIU/ML = 2821) LIPID [id number] 00:00:00 Test Item Value Reference Range Interpretation Comments CHOLESTEROL (test code = 2210) 292 MG/DL TRIGLYCERIDES (test code = 2232) 184 MG/DL HDL CHOLESTEROL (test code = 2220) 51 MG/DL CALC LDL CHOL (test code = 2237) 205 MG/DL RISK RATIO LDL/HDL (test code = 4.02 RATIO 2238) LIPID [id number] 00:00:00 Test Item Value Reference Range Interpretation Comments CHOLESTEROL (test code = 2210) 292 MG/DL TRIGLYCERIDES (test code = 2232) 184 MG/DL HDL CHOLESTEROL (test code = 2220) 51 MG/DL CALC LDL CHOL (test code = 2237) 205 MG/DL RISK RATIO LDL/HDL (test code = 4.02 RATIO 2238) HEMOGLOBIN [id number] 00:00:00 Test Item Value Reference Range Interpretation Comments HEMOGLOBIN A1c (test code = 87660) 6.6 % HEMOGLOBIN [id number] 00:00:00 Test Item Value Reference Range Interpretation Comments HEMOGLOBIN A1c (test code = 14270) 6.6 % HEMOGLOBIN [id number] 00:00:00 Test Item Value Reference Range Interpretation Comments HEMOGLOBIN A1c (test code = 56598) 6.6 % [id number] 00:00:00 Test Item Value Reference Range Interpretation Comments TSH, THIRD GENERATION (test code 2.080 UIU/ML = 2821) [id number] 00:00:00 Test Item Value Reference Range Interpretation Comments TSH, THIRD GENERATION (test code 2.080 UIU/ML = 2821) LIPID [id number] 00:00:00 Test Item Value Reference Range Interpretation Comments CHOLESTEROL (test code = 2210) 292 MG/DL TRIGLYCERIDES (test code = 2232) 184 MG/DL HDL CHOLESTEROL (test code = 2220) 51 MG/DL CALC LDL CHOL (test code = 2237) 205 MG/DL RISK RATIO LDL/HDL (test code = 4.02 RATIO 2238) HEMOGLOBIN [id number] 00:00:00 Test Item Value Reference Range Interpretation Comments HEMOGLOBIN A1c (test code = 32397) 6.6 % HEMOGLOBIN [id number] 00:00:00 Test Item Value Reference Range Interpretation Comments HEMOGLOBIN A1c (test code = 84128) 6.6 % [id number] 00:00:00 Test Item Value Reference Range Interpretation Comments TSH, THIRD GENERATION (test code 2.080 UIU/ML = 2821) [id number] 00:00:00 Test Item Value Reference Range Interpretation Comments TSH, THIRD GENERATION (test code 2.080 UIU/ML = 2821) [id number] 00:00:00 Test Item Value Reference Range Interpretation Comments TSH, THIRD GENERATION (test code 2.080 UIU/ML = 2821) LIPID [id number] 00:00:00 Test Item Value Reference Range Interpretation Comments CHOLESTEROL (test code = 2210) 292 MG/DL TRIGLYCERIDES (test code = 2232) 184 MG/DL HDL CHOLESTEROL (test code = 2220) 51 MG/DL CALC LDL CHOL (test code = 2237) 205 MG/DL RISK RATIO LDL/HDL (test code = 4.02 RATIO 2238) LIPID [id number] 00:00:00 Test Item Value Reference Range Interpretation Comments CHOLESTEROL (test code = 2210) 292 MG/DL TRIGLYCERIDES (test code = 2232) 184 MG/DL HDL CHOLESTEROL (test code = 2220) 51 MG/DL CALC LDL CHOL (test code = 2237) 205 MG/DL RISK RATIO LDL/HDL (test code = 4.02 RATIO 2238) HEMOGLOBIN [id number] 00:00:00 Test Item Value Reference Range Interpretation Comments HEMOGLOBIN A1c (test code = 98147) 6.6 % HEMOGLOBIN [id number] 00:00:00 Test Item Value Reference Range Interpretation Comments HEMOGLOBIN A1c (test code = 86418) 6.6 % HEMOGLOBIN [id number] 00:00:00 Test Item Value Reference Range Interpretation Comments HEMOGLOBIN A1c (test code = 64867) 6.6 % HEMOGLOBIN [id number] 00:00:00 Test Item Value Reference Range Interpretation Comments HEMOGLOBIN A1c (test code = 12108) 6.8 % HEMOGLOBIN [id number] 00:00:00 Test Item Value Reference Range Interpretation Comments HEMOGLOBIN A1c (test code = 65622) 6.8 % HEMOGLOBIN [id number] 00:00:00 Test Item Value Reference Range Interpretation Comments HEMOGLOBIN A1c (test code = 37422) 6.8 % LIPID [id number] 00:00:00 Test Item Value Reference Range Interpretation Comments CHOLESTEROL (test code = 2210) 303 MG/DL TRIGLYCERIDES (test code = 2232) 191 MG/DL HDL CHOLESTEROL (test code = 2220) 61 MG/DL CALC LDL CHOL (test code = 2237) 205 MG/DL RISK RATIO LDL/HDL (test code = 3.36 RATIO 2238) LIPID [id number] 00:00:00 Test Item Value Reference Range Interpretation Comments CHOLESTEROL (test code = 2210) 303 MG/DL TRIGLYCERIDES (test code = 2232) 191 MG/DL HDL CHOLESTEROL (test code = 2220) 61 MG/DL CALC LDL CHOL (test code = 2237) 205 MG/DL RISK RATIO LDL/HDL (test code = 3.36 RATIO 2238) [id number] 00:00:00 Test Item Value Reference Range Interpretation Comments TSH, THIRD GENERATION (test code 0.769 UIU/ML = 2821) [id number] 00:00:00 Test Item Value Reference Range Interpretation Comments TSH, THIRD GENERATION (test code 0.769 UIU/ML = 2821) [id number] 00:00:00 Test Item Value Reference Range Interpretation Comments TSH, THIRD GENERATION (test code 0.769 UIU/ML = 2821) COMPREHENSIVE METABOLIC [id number] 00:00:00 Test Item Value Reference Range Interpretation Comments GLUCOSE (test code = 2217) 131 MG/DL BUN (test code = 2208) 13 MG/DL CREATININE (test code = 2214) 0.65 MG/DL eGFR AMER. (test code 113 ML/MIN/1.73 = 68395) eGFR NON- AMER. (test 97 ML/MIN/1.73 code = 47488) CALC BUN/CREAT (test code = 20 RATIO [...] code = 2219) 23 U/L COMPREHENSIVE METABOLIC [id number] 00:00:00 Test Item Value Reference Range Interpretation Comments GLUCOSE (test code = 2217) 131 MG/DL BUN (test code = 2208) 13 MG/DL CREATININE (test code = 2214) 0.65 MG/DL eGFR AMER. (test code 113 ML/MIN/1.73 = 98562) eGFR NON- AMER. (test 97 ML/MIN/1.73 code = 63374) CALC BUN/CREAT (test code = 20 RATIO [...] (test code = 2219) 23 U/L HEMOGLOBIN [id number] 00:00:00 Test Item Value Reference Range Interpretation Comments HEMOGLOBIN A1c (test code = 48267) 6.8 % HEMOGLOBIN [id number] 00:00:00 Test Item Value Reference Range Interpretation Comments HEMOGLOBIN A1c (test code = 32766) 6.8 % LIPID [id number] 00:00:00 Test Item Value Reference Range Interpretation Comments CHOLESTEROL (test code = 2210) 303 MG/DL TRIGLYCERIDES (test code = 2232) 191 MG/DL HDL CHOLESTEROL (test code = 2220) 61 MG/DL CALC LDL CHOL (test code = 2237) 205 MG/DL RISK RATIO LDL/HDL (test code = 3.36 RATIO 2238) [id number] 00:00:00 Test Item Value Reference Range Interpretation Comments TSH, THIRD GENERATION (test code 0.769 UIU/ML = 2821) [id number] 00:00:00 Test Item Value Reference Range Interpretation Comments TSH, THIRD GENERATION (test code 0.769 UIU/ML = 2821) COMPREHENSIVE METABOLIC [id number] 00:00:00 Test Item Value Reference Range Interpretation Comments GLUCOSE (test code = 2217) 131 MG/DL BUN (test code = 2208) 13 MG/DL CREATININE (test code = 2214) 0.65 MG/DL eGFR AMER. (test code 113 ML/MIN/1.73 = 90774) eGFR NON- AMER. (test 97 ML/MIN/1.73 code = 39668) CALC BUN/CREAT (test code = 20 RATIO [...] BILIRUBIN, TOTAL (test code = <0.2 MG/DL 7) ALKALINE PHOSPHATASE (test 139 U/L code = 2204) AST (test code = 2218) 17 U/L ALT (test code = 2219) 23 U/L HEMOGLOBIN [id number] 00:00:00 Test Item Value Reference Range Interpretation Comments HEMOGLOBIN A1c (test code = 89225) 6.8 % HEMOGLOBIN [id number] 00:00:00 Test Item Value Reference Range Interpretation Comments HEMOGLOBIN A1c (test code = 53874) 6.8 % HEMOGLOBIN [id number] 00:00:00 Test Item Value Reference Range Interpretation Comments HEMOGLOBIN A1c (test code = 34950) 6.8 % LIPID [id number] 00:00:00 Test Item Value Reference Range Interpretation Comments CHOLESTEROL (test code = 2210) 303 MG/DL TRIGLYCERIDES (test code = 2232) 191 MG/DL HDL CHOLESTEROL (test code = 2220) 61 MG/DL CALC LDL CHOL (test code = 2237) 205 MG/DL RISK RATIO LDL/HDL (test code = 3.36 RATIO 2238) LIPID [id number] 00:00:00 Test Item Value Reference Range Interpretation Comments CHOLESTEROL (test code = 2210) 303 MG/DL TRIGLYCERIDES (test code = 2232) 191 MG/DL HDL CHOLESTEROL (test code = 2220) 61 MG/DL CALC LDL CHOL (test code = 2237) 205 MG/DL RISK RATIO LDL/HDL (test code = 3.36 RATIO 2238) [id number] 00:00:00 Test Item Value Reference Range Interpretation Comments TSH, THIRD GENERATION (test code 0.769 UIU/ML = 2821) [id number] 00:00:00 Test Item Value Reference Range Interpretation Comments TSH, THIRD GENERATION (test code 0.769 UIU/ML = 2821) [id number] 00:00:00 Test Item Value Reference Range Interpretation Comments TSH, THIRD GENERATION (test code 0.769 UIU/ML = 2821) COMPREHENSIVE METABOLIC [id number] 00:00:00 Test Item Value Reference Range Interpretation Comments GLUCOSE (test code = 2217) 131 MG/DL BUN (test code = 2208) 13 MG/DL CREATININE (test code = 2214) 0.65 MG/DL eGFR AMER. (test code 113 ML/MIN/1.73 = 20124) eGFR NON- AMER. (test 97 ML/MIN/1.73 code = 94579) CALC BUN/CREAT (test code = 20 RATIO [...] code = 2219) 23 U/L COMPREHENSIVE METABOLIC [id number] 00:00:00 Test Item Value Reference Range Interpretation Comments GLUCOSE (test code = 2217) 131 MG/DL BUN (test code = 2208) 13 MG/DL CREATININE (test code = 2214) 0.65 MG/DL eGFR AMER. (test code 113 ML/MIN/1.73 = 92522) eGFR NON- AMER. (test 97 ML/MIN/1.73 code = 50759) CALC BUN/CREAT (test code = 20 RATIO [...] (test code = 2219) 23 U/L HEMOGLOBIN [id number] 00:00:00 Test Item Value Reference Range Interpretation Comments HEMOGLOBIN A1c (test code = 15432) 6.6 % HEMOGLOBIN [id number] 00:00:00 Test Item Value Reference Range Interpretation Comments HEMOGLOBIN A1c (test code = 23362) 6.6 % HEMOGLOBIN [id number] 00:00:00 Test Item Value Reference Range Interpretation Comments HEMOGLOBIN A1c (test code = 05837) 6.6 % LIPID [id number] 00:00:00 Test Item Value Reference Range Interpretation Comments CHOLESTEROL (test code = 2210) 261 MG/DL TRIGLYCERIDES (test code = 2232) 159 MG/DL HDL CHOLESTEROL (test code = 2220) 82 MG/DL CALC LDL CHOL (test code = 2237) 150 MG/DL RISK RATIO LDL/HDL (test code = 1.83 RATIO 2238) LIPID [id number] 00:00:00 Test Item Value Reference Range Interpretation Comments CHOLESTEROL (test code = 2210) 261 MG/DL TRIGLYCERIDES (test code = 2232) 159 MG/DL HDL CHOLESTEROL (test code = 2220) 82 MG/DL CALC LDL CHOL (test code = 2237) 150 MG/DL RISK RATIO LDL/HDL (test code = 1.83 RATIO 2238) COMPREHENSIVE METABOLIC [id number] 00:00:00 Test Item Value Reference Range Interpretation Comments GLUCOSE (test code = 2217) 144 MG/DL BUN (test code = 2208) 15 MG/DL CREATININE (test code = 2214) 0.85 MG/DL eGFR AMER. (test code 87 ML/MIN/1.73 = 32117) eGFR NON- AMER. (test 75 ML/MIN/1.73 code = 31210) CALC BUN/CREAT (test code = 18 RATIO [...] code = 2219) 50 U/L COMPREHENSIVE METABOLIC [id number] 00:00:00 Test Item Value Reference Range Interpretation Comments GLUCOSE (test code = 2217) 144 MG/DL BUN (test code = 2208) 15 MG/DL CREATININE (test code = 2214) 0.85 MG/DL eGFR AMER. (test code 87 ML/MIN/1.73 = 74621) eGFR NON- AMER. (test 75 ML/MIN/1.73 code = 92763) CALC BUN/CREAT (test code = 18 RATIO [...] THYROX. BIND. CAPAC. (test code 1.1 = 87289) T4 (THYROXINE) (test code = 4.3 UG/DL 2819) CORRECTED T4 (FTI) (test code = 3.9 UG/DL 2820) TSH, THIRD GENERATION (test 18.900 UIU/ML code = 2821) THYROID II PROFILE (T3U, T4, T7, TSH)[id number] 00:00:00 Test Item Value Reference Range Interpretation Comments T-UPTAKE (test code = 2817) 30.2 % THYROX. BIND. CAPAC. (test code 1.1 = 40934) T4 (THYROXINE) (test code = 4.3 UG/DL 2819) CORRECTED T4 (FTI) (test code = 3.9 UG/DL 2820) TSH, THIRD GENERATION (test 18.900 UIU/ML code = 2821) HEMOGLOBIN [id number] 00:00:00 Test Item Value Reference Range Interpretation Comments HEMOGLOBIN A1c (test code = 48855) 6.6 % HEMOGLOBIN [id number] 00:00:00 Test Item Value Reference Range Interpretation Comments HEMOGLOBIN A1c (test code = 30274) 6.6 % LIPID [id number] 00:00:00 Test Item Value Reference Range Interpretation Comments CHOLESTEROL (test code = 2210) 261 MG/DL TRIGLYCERIDES (test code = 2232) 159 MG/DL HDL CHOLESTEROL (test code = 2220) 82 MG/DL CALC LDL CHOL (test code = 2237) 150 MG/DL RISK RATIO LDL/HDL (test code = 1.83 RATIO 2238) COMPREHENSIVE METABOLIC [id number] 00:00:00 Test Item Value Reference Range Interpretation Comments GLUCOSE (test code = 2217) 144 MG/DL BUN (test code = 2208) 15 MG/DL CREATININE (test code = 2214) 0.85 MG/DL eGFR AMER. (test code 87 ML/MIN/1.73 = 16441) eGFR NON- AMER. (test 75 ML/MIN/1.73 code = 56014) CALC BUN/CREAT (test code = 18 RATIO [...] THYROX. BIND. CAPAC. (test code 1.1 = 78970) T4 (THYROXINE) (test code = 4.3 UG/DL 2819) CORRECTED T4 (FTI) (test code = 3.9 UG/DL 2820) TSH, THIRD GENERATION (test 18.900 UIU/ML code = 2821) HEMOGLOBIN [id number] 00:00:00 Test Item Value Reference Range Interpretation Comments HEMOGLOBIN A1c (test code = 83763) 6.6 % HEMOGLOBIN [id number] 00:00:00 Test Item Value Reference Range Interpretation Comments HEMOGLOBIN A1c (test code = 34566) 6.6 % HEMOGLOBIN [id number] 00:00:00 Test Item Value Reference Range Interpretation Comments HEMOGLOBIN A1c (test code = 74685) 6.6 % LIPID [id number] 00:00:00 Test Item Value Reference Range Interpretation Comments CHOLESTEROL (test code = 2210) 261 MG/DL TRIGLYCERIDES (test code = 2232) 159 MG/DL HDL CHOLESTEROL (test code = 2220) 82 MG/DL CALC LDL CHOL (test code = 2237) 150 MG/DL RISK RATIO LDL/HDL (test code = 1.83 RATIO 2238) LIPID [id number] 00:00:00 Test Item Value Reference Range Interpretation Comments CHOLESTEROL (test code = 2210) 261 MG/DL TRIGLYCERIDES (test code = 2232) 159 MG/DL HDL CHOLESTEROL (test code = 2220) 82 MG/DL CALC LDL CHOL (test code = 2237) 150 MG/DL RISK RATIO LDL/HDL (test code = 1.83 RATIO 2238) COMPREHENSIVE METABOLIC [id number] 00:00:00 Test Item Value Reference Range Interpretation Comments GLUCOSE (test code = 2217) 144 MG/DL BUN (test code = 2208) 15 MG/DL CREATININE (test code = 2214) 0.85 MG/DL eGFR AMER. (test code 87 ML/MIN/1.73 = 46481) eGFR NON- AMER. (test 75 ML/MIN/1.73 code = 58128) CALC BUN/CREAT (test code = 18 RATIO [...] code = 2219) 50 U/L COMPREHENSIVE METABOLIC [id number] 00:00:00 Test Item Value Reference Range Interpretation Comments GLUCOSE (test code = 2217) 144 MG/DL BUN (test code = 2208) 15 MG/DL CREATININE (test code = 2214) 0.85 MG/DL eGFR AMER. (test code 87 ML/MIN/1.73 = 84910) eGFR NON- AMER. (test 75 ML/MIN/1.73 code = 96554) CALC BUN/CREAT (test code = 18 RATIO [...] BILIRUBIN, TOTAL (test code = <0.2 MG/DL 7) ALKALINE PHOSPHATASE (test 117 U/L code = 2204) AST (test code = 2218) 27 U/L ALT (test code = 2219) 50 U/L THYROID II PROFILE (T3U, T4, T7, TSH)2020-05-23 00:00:00 Test Item Value Reference Range Interpretation Comments T-UPTAKE (test code = 2817) 30.2 % THYROX. BIND. CAPAC. (test code 1.1 = 56185) T4 (THYROXINE) (test code = 4.3 UG/DL 2819) CORRECTED T4 (FTI) (test code = 3.9 UG/DL 2820) TSH, THIRD GENERATION (test 18.900 UIU/ML code = 2821) THYROID II PROFILE (T3U, T4, T7, TSH)2020-05-23 00:00:00 Test Item Value Reference Range Interpretation Comments T-UPTAKE (test code = 2817) 30.2 % THYROX. BIND. CAPAC. (test code 1.1 = 60498) T4 (THYROXINE) (test code = 4.3 UG/DL 2819) CORRECTED T4 (FTI) (test code = 3.9 UG/DL 2820) TSH, THIRD GENERATION (test 18.900 UIU/ML code = 2821) HEMOGLOBIN [id number] 00:00:00 Test Item Value Reference Range Interpretation Comments HEMOGLOBIN A1c (test code = 64749) 6.7 % HEMOGLOBIN [id number] 00:00:00 Test Item Value Reference Range Interpretation Comments HEMOGLOBIN A1c (test code = 97386) 6.7 % HEMOGLOBIN [id number] 00:00:00 Test Item Value Reference Range Interpretation Comments HEMOGLOBIN A1c (test code = 20436) 6.7 % LIPID [id number] 00:00:00 Test Item Value Reference Range Interpretation Comments CHOLESTEROL (test code = 2210) 267 MG/DL TRIGLYCERIDES (test code = 2232) 137 MG/DL HDL CHOLESTEROL (test code = 2220) 48 MG/DL CALC LDL CHOL (test code = 2237) 192 MG/DL RISK RATIO LDL/HDL (test code = 4.00 RATIO 2238) LIPID [id number] 00:00:00 Test Item Value Reference Range Interpretation Comments CHOLESTEROL (test code = 2210) 267 MG/DL TRIGLYCERIDES (test code = 2232) 137 MG/DL HDL CHOLESTEROL (test code = 2220) 48 MG/DL CALC LDL CHOL (test code = 2237) 192 MG/DL RISK RATIO LDL/HDL (test code = 4.00 RATIO 2238) COMPREHENSIVE METABOLIC [id number] 00:00:00 Test Item Value Reference Range Interpretation Comments GLUCOSE (test code = 2217) 155 MG/DL BUN (test code = 2208) 14 MG/DL CREATININE (test code = 2214) 0.52 MG/DL eGFR AMER. (test code 122 ML/MIN/1.73 = 96512) eGFR NON- AMER. (test 105 ML/MIN/1.73 code = 87829) CALC BUN/CREAT (test code = 27 RATIO [...] code = 2219) 27 U/L COMPREHENSIVE METABOLIC [id number] 00:00:00 Test Item Value Reference Range Interpretation Comments GLUCOSE (test code = 2217) 155 MG/DL BUN (test code = 2208) 14 MG/DL CREATININE (test code = 2214) 0.52 MG/DL eGFR AMER. (test code 122 ML/MIN/1.73 = 92859) eGFR NON- AMER. (test 105 ML/MIN/1.73 code = 95700) CALC BUN/CREAT (test code = 27 RATIO [...] THYROX. BIND. CAPAC. (test code 1.0 = 99716) T4 (THYROXINE) (test code = 4.7 UG/DL 2819) CORRECTED T4 (FTI) (test code = 4.7 UG/DL 2820) TSH, THIRD GENERATION (test code 0.201 UIU/ML = 2821) THYROID II PROFILE (T3U, T4, T7, TSH)2019 00:00:00 Test Item Value Reference Range Interpretation Comments T-UPTAKE (test code = 7) 33.1 % THYROX. BIND. CAPAC. (test code 1.0 = 72120) T4 (THYROXINE) (test code = 4.7 UG/DL 2819) CORRECTED T4 (FTI) (test code = 4.7 UG/DL 2820) TSH, THIRD GENERATION (test code 0.201 UIU/ML = 2821) HEMOGLOBIN [id number] 00:00:00 Test Item Value Reference Range Interpretation Comments HEMOGLOBIN A1c (test code = 54349) 6.7 % HEMOGLOBIN [id number] 00:00:00 Test Item Value Reference Range Interpretation Comments HEMOGLOBIN A1c (test code = 58238) 6.7 % LIPID [id number] 00:00:00 Test Item Value Reference Range Interpretation Comments CHOLESTEROL (test code = 2210) 267 MG/DL TRIGLYCERIDES (test code = 2232) 137 MG/DL HDL CHOLESTEROL (test code = 2220) 48 MG/DL CALC LDL CHOL (test code = 2237) 192 MG/DL RISK RATIO LDL/HDL (test code = 4.00 RATIO 2238) COMPREHENSIVE METABOLIC [id number] 00:00:00 Test Item Value Reference Range Interpretation Comments GLUCOSE (test code = 2217) 155 MG/DL BUN (test code = 2208) 14 MG/DL CREATININE (test code = 2214) 0.52 MG/DL eGFR AMER. (test code 122 ML/MIN/1.73 = 68947) eGFR NON- AMER. (test 105 ML/MIN/1.73 code = 07691) CALC BUN/CREAT (test code = 27 RATIO [...] THYROX. BIND. CAPAC. (test code 1.0 = 20624) T4 (THYROXINE) (test code = 4.7 UG/DL 2819) CORRECTED T4 (FTI) (test code = 4.7 UG/DL 2820) TSH, THIRD GENERATION (test code 0.201 UIU/ML = 2821) HEMOGLOBIN [id number] 00:00:00 Test Item Value Reference Range Interpretation Comments HEMOGLOBIN A1c (test code = 11047) 6.7 % HEMOGLOBIN [id number] 00:00:00 Test Item Value Reference Range Interpretation Comments HEMOGLOBIN A1c (test code = 30774) 6.7 % HEMOGLOBIN [id number] 00:00:00 Test Item Value Reference Range Interpretation Comments HEMOGLOBIN A1c (test code = 43614) 6.7 % LIPID [id number] 00:00:00 Test Item Value Reference Range Interpretation Comments CHOLESTEROL (test code = 2210) 267 MG/DL TRIGLYCERIDES (test code = 2232) 137 MG/DL HDL CHOLESTEROL (test code = 2220) 48 MG/DL CALC LDL CHOL (test code = 2237) 192 MG/DL RISK RATIO LDL/HDL (test code = 4.00 RATIO 2238) LIPID [id number] 00:00:00 Test Item Value Reference Range Interpretation Comments CHOLESTEROL (test code = 2210) 267 MG/DL TRIGLYCERIDES (test code = 2232) 137 MG/DL HDL CHOLESTEROL (test code = 2220) 48 MG/DL CALC LDL CHOL (test code = 2237) 192 MG/DL RISK RATIO LDL/HDL (test code = 4.00 RATIO 2238) COMPREHENSIVE METABOLIC [id number] 00:00:00 Test Item Value Reference Range Interpretation Comments GLUCOSE (test code = 2217) 155 MG/DL BUN (test code = 2208) 14 MG/DL CREATININE (test code = 2214) 0.52 MG/DL eGFR AMER. (test code 122 ML/MIN/1.73 = 30422) eGFR NON- AMER. (test 105 ML/MIN/1.73 code = 09609) CALC BUN/CREAT (test code = 27 RATIO [...] code = 2219) 27 U/L COMPREHENSIVE METABOLIC [id number] 00:00:00 Test Item Value Reference Range Interpretation Comments GLUCOSE (test code = 2217) 155 MG/DL BUN (test code = 2208) 14 MG/DL CREATININE (test code = 2214) 0.52 MG/DL eGFR AMER. (test code 122 ML/MIN/1.73 = 10530) eGFR NON- AMER. (test 105 ML/MIN/1.73 code = 60291) CALC BUN/CREAT (test code = 27 RATIO [...] THYROX. BIND. CAPAC. (test code 1.0 = 00668) T4 (THYROXINE) (test code = 4.7 UG/DL 2819) CORRECTED T4 (FTI) (test code = 4.7 UG/DL 2820) TSH, THIRD GENERATION (test code 0.201 UIU/ML = 2821) THYROID II PROFILE (T3U, T4, T7, TSH)2019 00:00:00 Test Item Value Reference Range Interpretation Comments T-UPTAKE (test code = 281) 33.1 % THYROX. BIND. CAPAC. (test code 1.0 = 44602) T4 (THYROXINE) (test code = 4.7 UG/DL 2819) CORRECTED T4 (FTI) (test code = 4.7 UG/DL 2820) TSH, THIRD GENERATION (test code 0.201 UIU/ML = 2821) SARS-CoV-2 (COVID-19) by RT-PCR (HIGH RISK)2019-09-18 00:00:00 Test Item Value Reference Range Interpretation Comments SARS-CoV-2 INTERPRETATION (test NEGATIVE code = 41492) SOURCE (test code = 30089) NOT SPECIFIED SARS-CoV-2 (COVID-19) by RT-PCR (HIGH RISK)2019-09-18 00:00:00 Test Item Value Reference Range Interpretation Comments SARS-CoV-2 INTERPRETATION (test NEGATIVE code = 93198) SOURCE (test code = 04224) NOT SPECIFIED SARS-CoV-2 (COVID-19) by RT-PCR (HIGH RISK)2019-09-18 00:00:00 Test Item Value Reference Range Interpretation Comments SARS-CoV-2 INTERPRETATION (test NEGATIVE code = 85182) SOURCE (test code = 46013) NOT SPECIFIED SARS-CoV-2 (COVID-19) by RT-PCR (HIGH RISK)2019-09-18 00:00:00 Test Item Value Reference Range Interpretation Comments SARS-CoV-2 INTERPRETATION (test NEGATIVE code = 15727) SOURCE (test code = 75168) NOT SPECIFIED SARS-CoV-2 (COVID-19) by RT-PCR (HIGH RISK)2019-09-18 00:00:00 Test Item Value Reference Range Interpretation Comments SARS-CoV-2 INTERPRETATION (test NEGATIVE code = 89435) SOURCE (test code = 44844) NOT SPECIFIED [id number] 00:00:00 Test Item Value Reference Range Interpretation Comments TSH, THIRD GENERATION (test code 2.490 UIU/ML = 2821) [id number] 00:00:00 Test Item Value Reference Range Interpretation Comments TSH, THIRD GENERATION (test code 2.490 UIU/ML = 2821) [id number] 00:00:00 Test Item Value Reference Range Interpretation Comments TSH, THIRD GENERATION (test code 2.490 UIU/ML = 2821) HEMOGLOBIN [id number] 00:00:00 Test Item Value Reference Range Interpretation Comments HEMOGLOBIN A1c (test code = 11751) 6.4 % HEMOGLOBIN [id number] 00:00:00 Test Item Value Reference Range Interpretation Comments HEMOGLOBIN A1c (test code = 22661) 6.4 % HEMOGLOBIN [id number] 00:00:00 Test Item Value Reference Range Interpretation Comments HEMOGLOBIN A1c (test code = 44026) 6.4 % COMPREHENSIVE METABOLIC [id number] 00:00:00 Test Item Value Reference Range Interpretation Comments GLUCOSE (test code = 2217) 206 MG/DL BUN (test code = 2208) 23 MG/DL CREATININE (test code = 2214) 0.67 MG/DL eGFR AMER. (test code 112 ML/MIN/1.73 = 42294) eGFR NON- AMER. (test 97 ML/MIN/1.73 code = 17591) CALC BUN/CREAT (test code = 34 RATIO [...] code = 2219) 25 U/L COMPREHENSIVE METABOLIC [id number] 00:00:00 Test Item Value Reference Range Interpretation Comments GLUCOSE (test code = 2217) 206 MG/DL BUN (test code = 2208) 23 MG/DL CREATININE (test code = 2214) 0.67 MG/DL eGFR AMER. (test code 112 ML/MIN/1.73 = 68725) eGFR NON- AMER. (test 97 ML/MIN/1.73 code = 96491) CALC BUN/CREAT (test code = 34 RATIO [...] ALT (test code = 2219) 25 U/L [id number] 00:00:00 Test Item Value Reference Range Interpretation Comments TSH, THIRD GENERATION (test code 2.490 UIU/ML = 2821) [id number] 00:00:00 Test Item Value Reference Range Interpretation Comments TSH, THIRD GENERATION (test code 2.490 UIU/ML = 2821) HEMOGLOBIN [id number] 00:00:00 Test Item Value Reference Range Interpretation Comments HEMOGLOBIN A1c (test code = 52862) 6.4 % HEMOGLOBIN [id number] 00:00:00 Test Item Value Reference Range Interpretation Comments HEMOGLOBIN A1c (test code = 19460) 6.4 % COMPREHENSIVE METABOLIC [id number] 00:00:00 Test Item Value Reference Range Interpretation Comments GLUCOSE (test code = 2217) 206 MG/DL BUN (test code = 2208) 23 MG/DL CREATININE (test code = 2214) 0.67 MG/DL eGFR AMER. (test code 112 ML/MIN/1.73 = 45220) eGFR NON- AMER. (test 97 ML/MIN/1.73 code = 02572) CALC BUN/CREAT (test code = 34 RATIO [...] ALT (test code = 2219) 25 U/L [id number] 00:00:00 Test Item Value Reference Range Interpretation Comments TSH, THIRD GENERATION (test code 2.490 UIU/ML = 2821) [id number] 00:00:00 Test Item Value Reference Range Interpretation Comments TSH, THIRD GENERATION (test code 2.490 UIU/ML = 2821) [id number] 00:00:00 Test Item Value Reference Range Interpretation Comments TSH, THIRD GENERATION (test code 2.490 UIU/ML = 2821) HEMOGLOBIN [id number] 00:00:00 Test Item Value Reference Range Interpretation Comments HEMOGLOBIN A1c (test code = 74252) 6.4 % HEMOGLOBIN [id number] 00:00:00 Test Item Value Reference Range Interpretation Comments HEMOGLOBIN A1c (test code = 67678) 6.4 % HEMOGLOBIN [id number] 00:00:00 Test Item Value Reference Range Interpretation Comments HEMOGLOBIN A1c (test code = 98953) 6.4 % COMPREHENSIVE METABOLIC [id number] 00:00:00 Test Item Value Reference Range Interpretation Comments GLUCOSE (test code = 2217) 206 MG/DL BUN (test code = 2208) 23 MG/DL CREATININE (test code = 2214) 0.67 MG/DL eGFR AMER. (test code 112 ML/MIN/1.73 = 58027) eGFR NON- AMER. (test 97 ML/MIN/1.73 code = 18258) CALC BUN/CREAT (test code = 34 RATIO [...] code = 2219) 25 U/L COMPREHENSIVE METABOLIC [id number] 00:00:00 Test Item Value Reference Range Interpretation Comments GLUCOSE (test code = 2217) 206 MG/DL BUN (test code = 2208) 23 MG/DL CREATININE (test code = 2214) 0.67 MG/DL eGFR AMER. (test code 112 ML/MIN/1.73 = 49016) eGFR NON- AMER. (test 97 ML/MIN/1.73 code = 45655) CALC BUN/CREAT (test code = 34 RATIO [...] = 2219) 25 U/L VAGINAL PATHOGENS DNA [id number] 00:00:00 Test Item Value Reference Range Interpretation Comments MARK SPECIES (test code = ) NEGATIVE G. VAGINALIS (test code = 11705) NEGATIVE T. VAGINALIS (test code = 37958) NEGATIVE VAGINAL PATHOGENS DNA [id number] 00:00:00 Test Item Value Reference Range Interpretation Comments MARK SPECIES (test code = 44838) NEGATIVE G. VAGINALIS (test code = 79511) NEGATIVE T. VAGINALIS (test code = 18416) NEGATIVE VAGINAL PATHOGENS DNA [id number] 00:00:00 Test Item Value Reference Range Interpretation Comments MARK SPECIES (test code = ) NEGATIVE G. VAGINALIS (test code = 24833) NEGATIVE T. VAGINALIS (test code = 39556) NEGATIVE VAGINAL PATHOGENS DNA [id number] 00:00:00 Test Item Value Reference Range Interpretation Comments MARK SPECIES (test code = 83403) NEGATIVE G. VAGINALIS (test code = 74511) NEGATIVE T. VAGINALIS (test code = 08327) NEGATIVE VAGINAL PATHOGENS DNA [id number] 00:00:00 Test Item Value Reference Range Interpretation Comments MARK SPECIES (test code = 76472) NEGATIVE G. VAGINALIS (test code = 55470) NEGATIVE T. VAGINALIS (test code = 93559) NEGATIVE HEMOGLOBIN A1c [ADDED]2018-12-01 00:00:00 Test Item Value Reference Range Interpretation Comments HEMOGLOBIN A1c (test code = 78805) 6.7 % HEMOGLOBIN A1c [ADDED]2018-12-01 00:00:00 Test Item Value Reference Range Interpretation Comments HEMOGLOBIN A1c (test code = 07753) 6.7 % HEMOGLOBIN A1c [ADDED]2018-12-01 00:00:00 Test Item Value Reference Range Interpretation Comments HEMOGLOBIN A1c (test code = 02868) 6.7 % COMPREHENSIVE METABOLIC PANEL [ADDED]2018-12-01 00:00:00 Test Item Value Reference Range Interpretation Comments GLUCOSE (test code = 2217) 136 MG/DL BUN (test code = 2208) 15 MG/DL CREATININE (test code = 2214) 0.64 MG/DL eGFR AMER. (test code 115 ML/MIN/1.73 = 25250) eGFR NON- AMER. (test 99 ML/MIN/1.73 code = 53615) CALC BUN/CREAT (test code = 23 RATIO [...] eGFR AMER. (test code 115 ML/MIN/1.73 = 19749) eGFR NON- AMER. (test 99 ML/MIN/1.73 code = 93783) CALC BUN/CREAT (test code = 23 RATIO [...] Interpretation Comments HEMOGLOBIN A1c (test code = 78295) 6.7 % HEMOGLOBIN A1c [ADDED]2018-12-01 00:00:00 Test Item Value Reference Range Interpretation Comments HEMOGLOBIN A1c (test code = 10372) 6.7 % COMPREHENSIVE METABOLIC PANEL [ADDED]2018-12-01 00:00:00 Test Item Value Reference Range Interpretation Comments GLUCOSE (test code = 2217) 136 MG/DL BUN (test code = 2208) 15 MG/DL CREATININE (test code = 2214) 0.64 MG/DL eGFR AMER. (test code 115 ML/MIN/1.73 = 38429) eGFR NON- AMER. (test 99 ML/MIN/1.73 code = 56584) CALC BUN/CREAT (test code = 23 RATIO [...] Interpretation Comments HEMOGLOBIN A1c (test code = 82844) 6.7 % HEMOGLOBIN A1c [ADDED]2018-12-01 00:00:00 Test Item Value Reference Range Interpretation Comments HEMOGLOBIN A1c (test code = 49983) 6.7 % HEMOGLOBIN A1c [ADDED]2018-12-01 00:00:00 Test Item Value Reference Range Interpretation Comments HEMOGLOBIN A1c (test code = 85353) 6.7 % COMPREHENSIVE METABOLIC PANEL [ADDED]2018-12-01 00:00:00 Test Item Value Reference Range Interpretation Comments GLUCOSE (test code = 2217) 136 MG/DL BUN (test code = 2208) 15 MG/DL CREATININE (test code = 2214) 0.64 MG/DL eGFR AMER. (test code 115 ML/MIN/1.73 = 96422) eGFR NON- AMER. (test 99 ML/MIN/1.73 code = 11005) CALC BUN/CREAT (test code = 23 RATIO [...] eGFR AMER. (test code 115 ML/MIN/1.73 = 39182) eGFR NON- AMER. (test 99 ML/MIN/1.73 code = 04936) CALC BUN/CREAT (test code = 23 RATIO [...] code 1.280 UIU/ML = 2821) CBC W/AUTO [id number] 00:00:00 Test Item Value Reference Range Interpretation [...] code = 1015) 346 K/UL CBC W/AUTO [id number] 00:00:00 Test Item Value Reference Range Interpretation [...] code = 1015) 346 K/UL CBC W/AUTO [id number] 00:00:00 Test Item Value Reference Range Interpretation [...] (test code = 1015) 346 K/UL HEMOGLOBIN [id number] 00:00:00 Test Item Value Reference Range Interpretation Comments HEMOGLOBIN A1c (test code = 94067) 5.9 % HEMOGLOBIN [id number] 00:00:00 Test Item Value Reference Range Interpretation Comments HEMOGLOBIN A1c (test code = 91112) 5.9 % HEMOGLOBIN [id number] 00:00:00 Test Item Value Reference Range Interpretation Comments HEMOGLOBIN A1c (test code = 06446) 5.9 % LIPID [id number] 00:00:00 Test Item Value Reference Range Interpretation Comments CHOLESTEROL (test code = 2210) 318 MG/DL TRIGLYCERIDES (test code = 2232) 263 MG/DL HDL CHOLESTEROL (test code = 2220) 51 MG/DL CALC LDL CHOL (test code = 2237) 214 MG/DL RISK RATIO LDL/HDL (test code = 4.20 RATIO 2238) LIPID [id number] 00:00:00 Test Item Value Reference Range Interpretation Comments CHOLESTEROL (test code = 2210) 318 MG/DL TRIGLYCERIDES (test code = 2232) 263 MG/DL HDL CHOLESTEROL (test code = 2220) 51 MG/DL CALC LDL CHOL (test code = 2237) 214 MG/DL RISK RATIO LDL/HDL (test code = 4.20 RATIO 2238) COMPREHENSIVE METABOLIC [id number] 00:00:00 Test Item Value Reference Range Interpretation Comments GLUCOSE (test code = 2217) 113 MG/DL BUN (test code = 2208) 18 MG/DL CREATININE (test code = 2214) 0.70 MG/DL eGFR AMER. (test code 111 ML/MIN/1.73 = 97373) eGFR NON- AMER. (test 96 ML/MIN/1.73 code = 45041) CALC BUN/CREAT (test code = 26 RATIO [...] code = 2219) 31 U/L COMPREHENSIVE METABOLIC [id number] 00:00:00 Test Item Value Reference Range Interpretation Comments GLUCOSE (test code = 2217) 113 MG/DL BUN (test code = 2208) 18 MG/DL CREATININE (test code = 2214) 0.70 MG/DL eGFR AMER. (test code 111 ML/MIN/1.73 = 92089) eGFR NON- AMER. (test 96 ML/MIN/1.73 code = 37825) CALC BUN/CREAT (test code = 26 RATIO [...] ALT (test code = 2219) 31 U/L [id number] 00:00:00 Test Item Value Reference Range Interpretation Comments TSH, THIRD GENERATION (test code 2.520 UIU/ML = 2821) [id number] 00:00:00 Test Item Value Reference Range Interpretation Comments TSH, THIRD GENERATION (test code 2.520 UIU/ML = 2821) [id number] 00:00:00 Test Item Value Reference Range Interpretation Comments TSH, THIRD GENERATION (test code 2.520 UIU/ML = 2821) CBC W/AUTO [id number] 00:00:00 Test Item Value Reference Range Interpretation [...] code = 1015) 346 K/UL CBC W/AUTO [id number] 00:00:00 Test Item Value Reference Range Interpretation [...] (test code = 1015) 346 K/UL HEMOGLOBIN [id number] 00:00:00 Test Item Value Reference Range Interpretation Comments HEMOGLOBIN A1c (test code = 06869) 5.9 % HEMOGLOBIN [id number] 00:00:00 Test Item Value Reference Range Interpretation Comments HEMOGLOBIN A1c (test code = 92485) 5.9 % LIPID [id number] 00:00:00 Test Item Value Reference Range Interpretation Comments CHOLESTEROL (test code = 2210) 318 MG/DL TRIGLYCERIDES (test code = 2232) 263 MG/DL HDL CHOLESTEROL (test code = 2220) 51 MG/DL CALC LDL CHOL (test code = 2237) 214 MG/DL RISK RATIO LDL/HDL (test code = 4.20 RATIO 2238) COMPREHENSIVE METABOLIC [id number] 00:00:00 Test Item Value Reference Range Interpretation Comments GLUCOSE (test code = 2217) 113 MG/DL BUN (test code = 2208) 18 MG/DL CREATININE (test code = 2214) 0.70 MG/DL eGFR AMER. (test code 111 ML/MIN/1.73 = 99263) eGFR NON- AMER. (test 96 ML/MIN/1.73 code = 75634) CALC BUN/CREAT (test code = 26 RATIO [...] ALT (test code = 2219) 31 U/L [id number] 00:00:00 Test Item Value Reference Range Interpretation Comments TSH, THIRD GENERATION (test code 2.520 UIU/ML = 2821) [id number] 00:00:00 Test Item Value Reference Range Interpretation Comments TSH, THIRD GENERATION (test code 2.520 UIU/ML = 2821) CBC W/AUTO [id number] 00:00:00 Test Item Value Reference Range Interpretation [...] code = 1015) 346 K/UL CBC W/AUTO [id number] 00:00:00 Test Item Value Reference Range Interpretation [...] code = 1015) 346 K/UL CBC W/AUTO [id number] 00:00:00 Test Item Value Reference Range Interpretation [...] (test code = 1015) 346 K/UL HEMOGLOBIN [id number] 00:00:00 Test Item Value Reference Range Interpretation Comments HEMOGLOBIN A1c (test code = 95627) 5.9 % HEMOGLOBIN [id number] 00:00:00 Test Item Value Reference Range Interpretation Comments HEMOGLOBIN A1c (test code = 90110) 5.9 % HEMOGLOBIN [id number] 00:00:00 Test Item Value Reference Range Interpretation Comments HEMOGLOBIN A1c (test code = 21024) 5.9 % LIPID [id number] 00:00:00 Test Item Value Reference Range Interpretation Comments CHOLESTEROL (test code = 2210) 318 MG/DL TRIGLYCERIDES (test code = 2232) 263 MG/DL HDL CHOLESTEROL (test code = 2220) 51 MG/DL CALC LDL CHOL (test code = 2237) 214 MG/DL RISK RATIO LDL/HDL (test code = 4.20 RATIO 2238) LIPID [id number] 00:00:00 Test Item Value Reference Range Interpretation Comments CHOLESTEROL (test code = 2210) 318 MG/DL TRIGLYCERIDES (test code = 2232) 263 MG/DL HDL CHOLESTEROL (test code = 2220) 51 MG/DL CALC LDL CHOL (test code = 2237) 214 MG/DL RISK RATIO LDL/HDL (test code = 4.20 RATIO 2238) COMPREHENSIVE METABOLIC [id number] 00:00:00 Test Item Value Reference Range Interpretation Comments GLUCOSE (test code = 2217) 113 MG/DL BUN (test code = 2208) 18 MG/DL CREATININE (test code = 2214) 0.70 MG/DL eGFR AMER. (test code 111 ML/MIN/1.73 = 04031) eGFR NON- AMER. (test 96 ML/MIN/1.73 code = 34925) CALC BUN/CREAT (test code = 26 RATIO [...] code = 2219) 31 U/L COMPREHENSIVE METABOLIC [id number] 00:00:00 Test Item Value Reference Range Interpretation Comments GLUCOSE (test code = 2217) 113 MG/DL BUN (test code = 2208) 18 MG/DL CREATININE (test code = 2214) 0.70 MG/DL eGFR AMER. (test code 111 ML/MIN/1.73 = 04500) eGFR NON- AMER. (test 96 ML/MIN/1.73 code = 15492) CALC BUN/CREAT (test code = 26 RATIO [...] ALT (test code = 2219) 31 U/L [id number] 00:00:00 Test Item Value Reference Range Interpretation Comments TSH, THIRD GENERATION (test code 2.520 UIU/ML = 2821) [id number] 00:00:00 Test Item Value Reference Range Interpretation Comments TSH, THIRD GENERATION (test code 2.520 UIU/ML = 2821) [id number] 00:00:00 Test Item Value Reference Range Interpretation Comments TSH, THIRD GENERATION (test code 2.520 UIU/ML = 2821) CULTURE, [id number] 00:00:00 Test Item Value Reference Range Interpretation Comments CULTURE, URINE (test SPECIMEN NUMBER: code = 21125) [id number] CULTURE, [id number] 00:00:00 Test Item Value Reference Range Interpretation Comments CULTURE, URINE (test SPECIMEN NUMBER: code = 40571) [id number] CULTURE, [id number] 00:00:00 Test Item Value Reference Range Interpretation Comments CULTURE, URINE (test SPECIMEN NUMBER: code = 35445) [id number] CULTURE, [id number] 00:00:00 Test Item Value Reference Range Interpretation Comments CULTURE, URINE (test SPECIMEN NUMBER: code = 91383) [id number] CULTURE, [id number] 00:00:00 Test Item Value Reference Range Interpretation Comments CULTURE, URINE (test SPECIMEN NUMBER: code = 27253) [id number] CULTURE, [id number] 00:00:00 Test Item Value Reference Range Interpretation Comments CULTURE, URINE (test SPECIMEN NUMBER: code = 49311) [id number] CULTURE, [id number] 00:00:00 Test Item Value Reference Range Interpretation Comments CULTURE, URINE (test SPECIMEN NUMBER: code = 28725) [id number] CULTURE, [id number] 00:00:00 Test Item Value Reference Range Interpretation Comments CULTURE, URINE (test SPECIMEN NUMBER: code = 92613) [id number] CULTURE, [id number] 00:00:00 Test Item Value Reference Range Interpretation Comments CULTURE, URINE (test SPECIMEN NUMBER: code = 34261) [id number] CULTURE, [id number] 00:00:00 Test Item Value Reference Range Interpretation Comments CULTURE, URINE (test SPECIMEN NUMBER: code = 30522) [id number] BASIC METABOLIC [id number] 00:00:00 Test Item Value Reference Range Interpretation Comments GLUCOSE (test code = 2217) 135 MG/DL BUN (test code = 2208) 25 MG/DL CREATININE (test code = 2214) 0.76 MG/DL eGFR AMER. (test code 101 ML/MIN/1.73 = 42919) eGFR NON- AMER. (test 87 ML/MIN/1.73 code = 14336) SODIUM (test code = 2231) 139 MEQ/L POTASSIUM (test code = 2228) 4.7 MEQ/L CHLORIDE (test code = 2215) 99 MEQ/L CARBON DIOXIDE (test code = 26 MEQ/L 2205) CALCIUM (test code = 2209) 9.4 MG/DL BASIC METABOLIC [id number] 00:00:00 Test Item Value Reference Range Interpretation Comments GLUCOSE (test code = 2217) 135 MG/DL BUN (test code = 2208) 25 MG/DL CREATININE (test code = 2214) 0.76 MG/DL eGFR AMER. (test code 101 ML/MIN/1.73 = 18969) eGFR NON- AMER. (test 87 ML/MIN/1.73 code = 64240) SODIUM (test code = 2231) 139 MEQ/L POTASSIUM (test code = 2228) 4.7 MEQ/L CHLORIDE (test code = 2215) 99 MEQ/L CARBON DIOXIDE (test code = 26 MEQ/L 2205) CALCIUM (test code = 2209) 9.4 MG/DL LIPID [id number] 00:00:00 Test Item Value Reference Range Interpretation Comments CHOLESTEROL (test code = 2210) 262 MG/DL TRIGLYCERIDES (test code = 2232) 300 MG/DL HDL CHOLESTEROL (test code = 2220) 36 MG/DL CALC LDL CHOL (test code = 2237) 166 MG/DL RISK RATIO LDL/HDL (test code = 4.61 RATIO 2238) LIPID [id number] 00:00:00 Test Item Value Reference Range Interpretation Comments CHOLESTEROL (test code = 2210) 262 MG/DL TRIGLYCERIDES (test code = 2232) 300 MG/DL HDL CHOLESTEROL (test code = 2220) 36 MG/DL CALC LDL CHOL (test code = 2237) 166 MG/DL RISK RATIO LDL/HDL (test code = 4.61 RATIO 2238) HEMOGLOBIN [id number] 00:00:00 Test Item Value Reference Range Interpretation Comments HEMOGLOBIN A1c (test code = 08704) 6.2 % HEMOGLOBIN [id number] 00:00:00 Test Item Value Reference Range Interpretation Comments HEMOGLOBIN A1c (test code = 55523) 6.2 % HEMOGLOBIN [id number] 00:00:00 Test Item Value Reference Range Interpretation Comments HEMOGLOBIN A1c (test code = 30676) 6.2 % [id number] 00:00:00 Test Item Value Reference Range Interpretation Comments TSH, THIRD GENERATION (test code 0.988 UIU/ML = 2821) [id number] 00:00:00 Test Item Value Reference Range Interpretation Comments TSH, THIRD GENERATION (test code 0.988 UIU/ML = 2821) [id number] 00:00:00 Test Item Value Reference Range Interpretation Comments TSH, THIRD GENERATION (test code 0.988 UIU/ML = 2821) BASIC METABOLIC [id number] 00:00:00 Test Item Value Reference Range Interpretation Comments GLUCOSE (test code = 2217) 135 MG/DL BUN (test code = 2208) 25 MG/DL CREATININE (test code = 2214) 0.76 MG/DL eGFR AMER. (test code 101 ML/MIN/1.73 = 12511) eGFR NON- AMER. (test 87 ML/MIN/1.73 code = 71350) SODIUM (test code = 2231) 139 MEQ/L POTASSIUM (test code = 2228) 4.7 MEQ/L CHLORIDE (test code = 2215) 99 MEQ/L CARBON DIOXIDE (test code = 26 MEQ/L 2206) CALCIUM (test code = 2209) 9.4 MG/DL LIPID [id number] 00:00:00 Test Item Value Reference Range Interpretation Comments CHOLESTEROL (test code = 2210) 262 MG/DL TRIGLYCERIDES (test code = 2232) 300 MG/DL HDL CHOLESTEROL (test code = 2220) 36 MG/DL CALC LDL CHOL (test code = 2237) 166 MG/DL RISK RATIO LDL/HDL (test code = 4.61 RATIO 2238) HEMOGLOBIN [id number] 00:00:00 Test Item Value Reference Range Interpretation Comments HEMOGLOBIN A1c (test code = 52533) 6.2 % HEMOGLOBIN [id number] 00:00:00 Test Item Value Reference Range Interpretation Comments HEMOGLOBIN A1c (test code = 42735) 6.2 % [id number] 00:00:00 Test Item Value Reference Range Interpretation Comments TSH, THIRD GENERATION (test code 0.988 UIU/ML = 2821) [id number] 00:00:00 Test Item Value Reference Range Interpretation Comments TSH, THIRD GENERATION (test code 0.988 UIU/ML = 2821) BASIC METABOLIC [id number] 00:00:00 Test Item Value Reference Range Interpretation Comments GLUCOSE (test code = 2217) 135 MG/DL BUN (test code = 2208) 25 MG/DL CREATININE (test code = 2214) 0.76 MG/DL eGFR AMER. (test code 101 ML/MIN/1.73 = 10251) eGFR NON- AMER. (test 87 ML/MIN/1.73 code = 13506) SODIUM (test code = 2231) 139 MEQ/L POTASSIUM (test code = 2228) 4.7 MEQ/L CHLORIDE (test code = 2215) 99 MEQ/L CARBON DIOXIDE (test code = 26 MEQ/L 2206) CALCIUM (test code = 2209) 9.4 MG/DL BASIC METABOLIC [id number] 00:00:00 Test Item Value Reference Range Interpretation Comments GLUCOSE (test code = 2217) 135 MG/DL BUN (test code = 2208) 25 MG/DL CREATININE (test code = 2214) 0.76 MG/DL eGFR AMER. (test code 101 ML/MIN/1.73 = 00769) eGFR NON- AMER. (test 87 ML/MIN/1.73 code = 15559) SODIUM (test code = 2231) 139 MEQ/L POTASSIUM (test code = 2228) 4.7 MEQ/L CHLORIDE (test code = 2215) 99 MEQ/L CARBON DIOXIDE (test code = 26 MEQ/L 2206) CALCIUM (test code = 2209) 9.4 MG/DL LIPID [id number] 00:00:00 Test Item Value Reference Range Interpretation Comments CHOLESTEROL (test code = 2210) 262 MG/DL TRIGLYCERIDES (test code = 2232) 300 MG/DL HDL CHOLESTEROL (test code = 2220) 36 MG/DL CALC LDL CHOL (test code = 2237) 166 MG/DL RISK RATIO LDL/HDL (test code = 4.61 RATIO 2238) LIPID [id number] 00:00:00 Test Item Value Reference Range Interpretation Comments CHOLESTEROL (test code = 2210) 262 MG/DL TRIGLYCERIDES (test code = 2232) 300 MG/DL HDL CHOLESTEROL (test code = 2220) 36 MG/DL CALC LDL CHOL (test code = 2237) 166 MG/DL RISK RATIO LDL/HDL (test code = 4.61 RATIO 2238) HEMOGLOBIN [id number] 00:00:00 Test Item Value Reference Range Interpretation Comments HEMOGLOBIN A1c (test code = 93666) 6.2 % HEMOGLOBIN [id number] 00:00:00 Test Item Value Reference Range Interpretation Comments HEMOGLOBIN A1c (test code = 36791) 6.2 % HEMOGLOBIN [id number] 00:00:00 Test Item Value Reference Range Interpretation Comments HEMOGLOBIN A1c (test code = 39697) 6.2 % [id number] 00:00:00 Test Item Value Reference Range Interpretation Comments TSH, THIRD GENERATION (test code 0.988 UIU/ML = 2821) [id number] 00:00:00 Test Item Value Reference Range Interpretation Comments TSH, THIRD GENERATION (test code 0.988 UIU/ML = 2821) [id number] 00:00:00 Test Item Value Reference Range Interpretation Comments TSH, THIRD GENERATION (test code 0.988 UIU/ML = 2821) COMPREHENSIVE METABOLIC [id number] 00:00:00 Test Item Value Reference Range Interpretation Comments GLUCOSE (test code = 2217) 109 MG/DL BUN (test code = 2208) 25 MG/DL CREATININE (test code = 2214) 0.78 MG/DL eGFR AMER. (test code 98 ML/MIN/1.73 = 75848) eGFR NON- AMER. (test 84 ML/MIN/1.73 code = 86741) CALC BUN/CREAT (test code = 32 RATIO [...] code = 2219) 25 U/L COMPREHENSIVE METABOLIC [id number] 00:00:00 Test Item Value Reference Range Interpretation Comments GLUCOSE (test code = 2217) 109 MG/DL BUN (test code = 2208) 25 MG/DL CREATININE (test code = 2214) 0.78 MG/DL eGFR AMER. (test code 98 ML/MIN/1.73 = 09254) eGFR NON- AMER. (test 84 ML/MIN/1.73 code = 15699) CALC BUN/CREAT (test code = 32 RATIO 2235) SODIUM (test code = 2231) 139 MEQ/L POTASSIUM (test code = 2228) 4.5 MEQ/L CHLORIDE (test code = 2215) 96 MEQ/L CARBON DIOXIDE (test code = 27 MEQ/L 2206) CALCIUM (test code = 2209) 10.0 MG/DL PROTEIN, TOTAL (test code = 7.6 G/DL 222) ALBUMIN (test code = 2201) 4.9 G/DL CALC GLOBULIN (test code = 2.7 G/DL 2240) CALC A/G RATIO (test code = 1.8 RATIO 2234) BILIRUBIN, TOTAL (test code = <0.2 MG/DL 220) ALKALINE PHOSPHATASE (test 109 U/L code = 2204) AST (test code = 2218) 18 U/L ALT (test code = 2219) 25 U/L LIPID [id number] 00:00:00 Test Item Value Reference Range Interpretation Comments CHOLESTEROL (test code = 2210) 295 MG/DL TRIGLYCERIDES (test code = 2232) 218 MG/DL HDL CHOLESTEROL (test code = 2220) 46 MG/DL CALC LDL CHOL (test code = 2237) 205 MG/DL RISK RATIO LDL/HDL (test code = 4.47 RATIO 2238) LIPID [id number] 00:00:00 Test Item Value Reference Range Interpretation Comments CHOLESTEROL (test code = 2210) 295 MG/DL TRIGLYCERIDES (test code = 2232) 218 MG/DL HDL CHOLESTEROL (test code = 2220) 46 MG/DL CALC LDL CHOL (test code = 2237) 205 MG/DL RISK RATIO LDL/HDL (test code = 4.47 RATIO 2238) HEMOGLOBIN [id number] 00:00:00 Test Item Value Reference Range Interpretation Comments HEMOGLOBIN A1c (test code = 93483) 7.0 % HEMOGLOBIN [id number] 00:00:00 Test Item Value Reference Range Interpretation Comments HEMOGLOBIN A1c (test code = 16638) 7.0 % HEMOGLOBIN [id number] 00:00:00 Test Item Value Reference Range Interpretation Comments HEMOGLOBIN A1c (test code = 30492) 7.0 % [id number] 00:00:00 Test Item Value Reference Range Interpretation Comments TSH, THIRD GENERATION (test code 0.565 UIU/ML = 2821) [id number] 00:00:00 Test Item Value Reference Range Interpretation Comments TSH, THIRD GENERATION (test code 0.565 UIU/ML = 2821) [id number] 00:00:00 Test Item Value Reference Range Interpretation Comments TSH, THIRD GENERATION (test code 0.565 UIU/ML = 2821) COMPREHENSIVE METABOLIC [id number] 00:00:00 Test Item Value Reference Range Interpretation Comments GLUCOSE (test code = 2217) 109 MG/DL BUN (test code = 2208) 25 MG/DL CREATININE (test code = 2214) 0.78 MG/DL eGFR AMER. (test code 98 ML/MIN/1.73 = 00940) eGFR NON- AMER. (test 84 ML/MIN/1.73 code = 09486) CALC BUN/CREAT (test code = 32 RATIO [...] (test code = 2219) 25 U/L LIPID [id number] 00:00:00 Test Item Value Reference Range Interpretation Comments CHOLESTEROL (test code = 2210) 295 MG/DL TRIGLYCERIDES (test code = 2232) 218 MG/DL HDL CHOLESTEROL (test code = 2220) 46 MG/DL CALC LDL CHOL (test code = 2237) 205 MG/DL RISK RATIO LDL/HDL (test code = 4.47 RATIO 2238) HEMOGLOBIN [id number] 00:00:00 Test Item Value Reference Range Interpretation Comments HEMOGLOBIN A1c (test code = 60818) 7.0 % HEMOGLOBIN [id number] 00:00:00 Test Item Value Reference Range Interpretation Comments HEMOGLOBIN A1c (test code = 49925) 7.0 % [id number] 00:00:00 Test Item Value Reference Range Interpretation Comments TSH, THIRD GENERATION (test code 0.565 UIU/ML = 2821) [id number] 00:00:00 Test Item Value Reference Range Interpretation Comments TSH, THIRD GENERATION (test code 0.565 UIU/ML = 2821) COMPREHENSIVE METABOLIC [id number] 00:00:00 Test Item Value Reference Range Interpretation Comments GLUCOSE (test code = 2217) 109 MG/DL BUN (test code = 2208) 25 MG/DL CREATININE (test code = 2214) 0.78 MG/DL eGFR AMER. (test code 98 ML/MIN/1.73 = 72713) eGFR NON- AMER. (test 84 ML/MIN/1.73 code = 57942) CALC BUN/CREAT (test code = 32 RATIO [...] code = 2219) 25 U/L COMPREHENSIVE METABOLIC [id number] 00:00:00 Test Item Value Reference Range Interpretation Comments GLUCOSE (test code = 2217) 109 MG/DL BUN (test code = 2208) 25 MG/DL CREATININE (test code = 2214) 0.78 MG/DL eGFR AMER. (test code 98 ML/MIN/1.73 = 52421) eGFR NON- AMER. (test 84 ML/MIN/1.73 code = 23674) CALC BUN/CREAT (test code = 32 RATIO 2235) SODIUM (test code = 2231) 139 MEQ/L POTASSIUM (test code = 2228) 4.5 MEQ/L CHLORIDE (test code = 2215) 96 MEQ/L CARBON DIOXIDE (test code = 27 MEQ/L 2206) CALCIUM (test code = 2209) 10.0 MG/DL PROTEIN, TOTAL (test code = 7.6 G/DL 222) ALBUMIN (test code = 2201) 4.9 G/DL CALC GLOBULIN (test code = 2.7 G/DL 2240) CALC A/G RATIO (test code = 1.8 RATIO 2234) BILIRUBIN, TOTAL (test code = <0.2 MG/DL 220) ALKALINE PHOSPHATASE (test 109 U/L code = 2204) AST (test code = 2218) 18 U/L ALT (test code = 2219) 25 U/L LIPID [id number] 00:00:00 Test Item Value Reference Range Interpretation Comments CHOLESTEROL (test code = 2210) 295 MG/DL TRIGLYCERIDES (test code = 2232) 218 MG/DL HDL CHOLESTEROL (test code = 2220) 46 MG/DL CALC LDL CHOL (test code = 2237) 205 MG/DL RISK RATIO LDL/HDL (test code = 4.47 RATIO 2238) LIPID [id number] 00:00:00 Test Item Value Reference Range Interpretation Comments CHOLESTEROL (test code = 2210) 295 MG/DL TRIGLYCERIDES (test code = 2232) 218 MG/DL HDL CHOLESTEROL (test code = 2220) 46 MG/DL CALC LDL CHOL (test code = 2237) 205 MG/DL RISK RATIO LDL/HDL (test code = 4.47 RATIO 2238) HEMOGLOBIN [id number] 00:00:00 Test Item Value Reference Range Interpretation Comments HEMOGLOBIN A1c (test code = 77070) 7.0 % HEMOGLOBIN [id number] 00:00:00 Test Item Value Reference Range Interpretation Comments HEMOGLOBIN A1c (test code = 34521) 7.0 % HEMOGLOBIN [id number] 00:00:00 Test Item Value Reference Range Interpretation Comments HEMOGLOBIN A1c (test code = 40546) 7.0 % [id number] 00:00:00 Test Item Value Reference Range Interpretation Comments TSH, THIRD GENERATION (test code 0.565 UIU/ML = 2821) [id number] 00:00:00 Test Item Value Reference Range Interpretation Comments TSH, THIRD GENERATION (test code 0.565 UIU/ML = 2821) [id number] 00:00:00 Test Item Value Reference Range Interpretation Comments TSH, THIRD GENERATION (test code 0.565 UIU/ML = 2821) [id number] 00:00:00 Test Item Value Reference Range Interpretation Comments TSH, THIRD GENERATION (test code 0.379 UIU/ML = 2821) [id number] 00:00:00 Test Item Value Reference Range Interpretation Comments TSH, THIRD GENERATION (test code 0.379 UIU/ML = 2821) [id number] 00:00:00 Test Item Value Reference Range Interpretation Comments TSH, THIRD GENERATION (test code 0.379 UIU/ML = 2821) [id number] 00:00:00 Test Item Value Reference Range Interpretation Comments TSH, THIRD GENERATION (test code 0.379 UIU/ML = 2821) [id number] 00:00:00 Test Item Value Reference Range Interpretation Comments TSH, THIRD GENERATION (test code 0.379 UIU/ML = 2821) [id number] 00:00:00 Test Item Value Reference Range Interpretation Comments TSH, THIRD GENERATION (test code 0.379 UIU/ML = 2821) [id number] 00:00:00 Test Item Value Reference Range Interpretation Comments TSH, THIRD GENERATION (test code 0.379 UIU/ML = 2821) [id number] 00:00:00 Test Item Value Reference Range Interpretation Comments TSH, THIRD GENERATION (test code 0.379 UIU/ML = 2821) CULTURE, [id number] 00:00:00 Test Item Value Reference Range Interpretation Comments CULTURE, URINE (test SPECIMEN NUMBER: code = 34341) [id number] CULTURE, [id number] 00:00:00 Test Item Value Reference Range Interpretation Comments CULTURE, URINE (test SPECIMEN NUMBER: code = 21717) [id number] CULTURE, [id number] 00:00:00 Test Item Value Reference Range Interpretation Comments CULTURE, URINE (test SPECIMEN NUMBER: code = 87966) [id number] CULTURE, [id number] 00:00:00 Test Item Value Reference Range Interpretation Comments CULTURE, URINE (test SPECIMEN NUMBER: code = 72941) [id number] CULTURE, [id number] 00:00:00 Test Item Value Reference Range Interpretation Comments CULTURE, URINE (test SPECIMEN NUMBER: code = 50488) [id number] COMPREHENSIVE METABOLIC [id number] 00:00:00 Test Item Value Reference Range Interpretation Comments GLUCOSE (test code = 2217) 128 MG/DL BUN (test code = 2208) 26 MG/DL CREATININE (test code = 2214) 0.92 MG/DL eGFR AMER. (test code 81 ML/MIN/1.73 = 96126) eGFR NON- AMER. (test 70 ML/MIN/1.73 code = 08702) CALC BUN/CREAT (test code = 28 RATIO [...] code = 2219) 29 U/L COMPREHENSIVE METABOLIC [id number] 00:00:00 Test Item Value Reference Range Interpretation Comments GLUCOSE (test code = 2217) 128 MG/DL BUN (test code = 2208) 26 MG/DL CREATININE (test code = 2214) 0.92 MG/DL eGFR AMER. (test code 81 ML/MIN/1.73 = 24038) eGFR NON- AMER. (test 70 ML/MIN/1.73 code = 68093) CALC BUN/CREAT (test code = 28 RATIO [...] code = 2219) 29 U/L ACUTE HEPATITIS [id number] 00:00:00 Test Item Value Reference Range Interpretation Comments HEPATITIS A IgM (test code = NON-REACTIVE 20440) HEPATITIS B CORE IgM (test code NON-REACTIVE = 4644) HEPATITIS B SURF AG (test code = NON-REACTIVE 2739) HEPATITIS C ANTIBODY (test code NON-REACTIVE = 4675) INTERPRETATION HEPATITIS A: (NOTE) (test code = 2552) INTERPRETATION HEPATITIS B: (NOTE) (test code = 42678) INTERPRETATION HEPATITIS C: (NOTE) (test code = 03232) ACUTE HEPATITIS [id number] 00:00:00 Test Item Value Reference Range Interpretation Comments HEPATITIS A IgM (test code = NON-REACTIVE 22297) HEPATITIS B CORE IgM (test code NON-REACTIVE = 4644) HEPATITIS B SURF AG (test code = NON-REACTIVE 2739) HEPATITIS C ANTIBODY (test code NON-REACTIVE = 4675) INTERPRETATION HEPATITIS A: (NOTE) (test code = 2552) INTERPRETATION HEPATITIS B: (NOTE) (test code = 18130) INTERPRETATION HEPATITIS C: (NOTE) (test code = 17962) [id number] 00:00:00 Test Item Value Reference Range Interpretation Comments AMYLASE (test code = 2205) 32 U/L [id number] 00:00:00 Test Item Value Reference Range Interpretation Comments AMYLASE (test code = 2205) 32 U/L [id number] 00:00:00 Test Item Value Reference Range Interpretation Comments LIPASE (test code = 2058) 22 U/L [id number] 00:00:00 Test Item Value Reference Range Interpretation Comments LIPASE (test code = 2058) 22 U/L [id number] 00:00:00 Test Item Value Reference Range Interpretation Comments LIPASE (test code = 2058) 22 U/L COMPREHENSIVE METABOLIC [id number] 00:00:00 Test Item Value Reference Range Interpretation Comments GLUCOSE (test code = 2217) 128 MG/DL BUN (test code = 2208) 26 MG/DL CREATININE (test code = 2214) 0.92 MG/DL eGFR AMER. (test code 81 ML/MIN/1.73 = 98384) eGFR NON- AMER. (test 70 ML/MIN/1.73 code = 35889) CALC BUN/CREAT (test code = 28 RATIO [...] code = 2219) 29 U/L ACUTE HEPATITIS [id number] 00:00:00 Test Item Value Reference Range Interpretation Comments HEPATITIS A IgM (test code = NON-REACTIVE 65861) HEPATITIS B CORE IgM (test code NON-REACTIVE = 4644) HEPATITIS B SURF AG (test code = NON-REACTIVE 0851) HEPATITIS C ANTIBODY (test code NON-REACTIVE = 2844) INTERPRETATION HEPATITIS A: (NOTE) (test code = 2552) INTERPRETATION HEPATITIS B: (NOTE) (test code = 28128) INTERPRETATION HEPATITIS C: (NOTE) (test code = 40229) [id number] 00:00:00 Test Item Value Reference Range Interpretation Comments AMYLASE (test code = 2205) 32 U/L [id number] 00:00:00 Test Item Value Reference Range Interpretation Comments LIPASE (test code = 2057) 22 U/L [id number] 00:00:00 Test Item Value Reference Range Interpretation Comments LIPASE (test code = 2058) 22 U/L COMPREHENSIVE METABOLIC [id number] 00:00:00 Test Item Value Reference Range Interpretation Comments GLUCOSE (test code = 2217) 128 MG/DL BUN (test code = 2208) 26 MG/DL CREATININE (test code = 2214) 0.92 MG/DL eGFR AMER. (test code 81 ML/MIN/1.73 = 10206) eGFR NON- AMER. (test 70 ML/MIN/1.73 code = 55621) CALC BUN/CREAT (test code = 28 RATIO [...] code = 2219) 29 U/L COMPREHENSIVE METABOLIC [id number] 00:00:00 Test Item Value Reference Range Interpretation Comments GLUCOSE (test code = 2217) 128 MG/DL BUN (test code = 2208) 26 MG/DL CREATININE (test code = 2214) 0.92 MG/DL eGFR AMER. (test code 81 ML/MIN/1.73 = 84521) eGFR NON- AMER. (test 70 ML/MIN/1.73 code = 93093) CALC BUN/CREAT (test code = 28 RATIO [...] code = 2219) 29 U/L ACUTE HEPATITIS [id number] 00:00:00 Test Item Value Reference Range Interpretation Comments HEPATITIS A IgM (test code = NON-REACTIVE 14693) HEPATITIS B CORE IgM (test code NON-REACTIVE = 4644) HEPATITIS B SURF AG (test code = NON-REACTIVE 2739) HEPATITIS C ANTIBODY (test code NON-REACTIVE = 4675) INTERPRETATION HEPATITIS A: (NOTE) (test code = 2552) INTERPRETATION HEPATITIS B: (NOTE) (test code = 94661) INTERPRETATION HEPATITIS C: (NOTE) (test code = 68163) ACUTE HEPATITIS [id number] 00:00:00 Test Item Value Reference Range Interpretation Comments HEPATITIS A IgM (test code = NON-REACTIVE 56595) HEPATITIS B CORE IgM (test code NON-REACTIVE = 4644) HEPATITIS B SURF AG (test code = NON-REACTIVE 2739) HEPATITIS C ANTIBODY (test code NON-REACTIVE = 4675) INTERPRETATION HEPATITIS A: (NOTE) (test code = 2552) INTERPRETATION HEPATITIS B: (NOTE) (test code = 79316) INTERPRETATION HEPATITIS C: (NOTE) (test code = 00795) [id number] 00:00:00 Test Item Value Reference Range Interpretation Comments AMYLASE (test code = 2205) 32 U/L [id number] 00:00:00 Test Item Value Reference Range Interpretation Comments AMYLASE (test code = 2205) 32 U/L [id number] 00:00:00 Test Item Value Reference Range Interpretation Comments LIPASE (test code = 2058) 22 U/L [id number] 00:00:00 Test Item Value Reference Range Interpretation Comments LIPASE (test code = 2058) 22 U/L [id number] 00:00:00 Test Item Value Reference Range Interpretation Comments LIPASE (test code = 2058) 22 U/L [id number] 00:00:00 Test Item Value Reference Range Interpretation Comments TSH, THIRD GENERATION (test code 4.890 UIU/ML = 2821) [id number] 00:00:00 Test Item Value Reference Range Interpretation Comments TSH, THIRD GENERATION (test code 4.890 UIU/ML = 2821) [id number] 00:00:00 Test Item Value Reference Range Interpretation Comments TSH, THIRD GENERATION (test code 4.890 UIU/ML = 2821) COMPREHENSIVE METABOLIC [id number] 00:00:00 Test Item Value Reference Range Interpretation Comments GLUCOSE (test code = 2217) 121 MG/DL BUN (test code = 2208) 40 MG/DL CREATININE (test code = 2214) 1.48 MG/DL eGFR AMER. (test code 45 ML/MIN/1.73 = 75929) eGFR NON- AMER. (test 39 ML/MIN/1.73 code = 94839) CALC BUN/CREAT (test code = 27 RATIO [...] code = 2219) 20 U/L COMPREHENSIVE METABOLIC [id number] 00:00:00 Test Item Value Reference Range Interpretation Comments GLUCOSE (test code = 2217) 121 MG/DL BUN (test code = 2208) 40 MG/DL CREATININE (test code = 2214) 1.48 MG/DL eGFR AMER. (test code 45 ML/MIN/1.73 = 45729) eGFR NON- AMER. (test 39 ML/MIN/1.73 code = 69572) CALC BUN/CREAT (test code = 27 RATIO [...] ALT (test code = 2219) 20 U/L [id number] 00:00:00 Test Item Value Reference Range Interpretation Comments TSH, THIRD GENERATION (test code 4.890 UIU/ML = 2821) [id number] 00:00:00 Test Item Value Reference Range Interpretation Comments TSH, THIRD GENERATION (test code 4.890 UIU/ML = 2821) COMPREHENSIVE METABOLIC [id number] 00:00:00 Test Item Value Reference Range Interpretation Comments GLUCOSE (test code = 2217) 121 MG/DL BUN (test code = 2208) 40 MG/DL CREATININE (test code = 2214) 1.48 MG/DL eGFR AMER. (test code 45 ML/MIN/1.73 = 38001) eGFR NON- AMER. (test 39 ML/MIN/1.73 code = 73238) CALC BUN/CREAT (test code = 27 RATIO [...] ALT (test code = 2219) 20 U/L [id number] 00:00:00 Test Item Value Reference Range Interpretation Comments TSH, THIRD GENERATION (test code 4.890 UIU/ML = 2821) [id number] 00:00:00 Test Item Value Reference Range Interpretation Comments TSH, THIRD GENERATION (test code 4.890 UIU/ML = 2821) [id number] 00:00:00 Test Item Value Reference Range Interpretation Comments TSH, THIRD GENERATION (test code 4.890 UIU/ML = 2821) COMPREHENSIVE METABOLIC [id number] 00:00:00 Test Item Value Reference Range Interpretation Comments GLUCOSE (test code = 2217) 121 MG/DL BUN (test code = 2208) 40 MG/DL CREATININE (test code = 2214) 1.48 MG/DL eGFR AMER. (test code 45 ML/MIN/1.73 = 69405) eGFR NON- AMER. (test 39 ML/MIN/1.73 code = 35767) CALC BUN/CREAT (test code = 27 RATIO [...] code = 2219) 20 U/L COMPREHENSIVE METABOLIC [id number] 00:00:00 Test Item Value Reference Range Interpretation Comments GLUCOSE (test code = 2217) 121 MG/DL BUN (test code = 2208) 40 MG/DL CREATININE (test code = 2214) 1.48 MG/DL eGFR AMER. (test code 45 ML/MIN/1.73 = 41318) eGFR NON- AMER. (test 39 ML/MIN/1.73 code = 82061) CALC BUN/CREAT (test code = 27 RATIO [...] (test code = 2219) 20 U/L LIPID [id number] 00:00:00 Test Item Value Reference Range Interpretation Comments CHOLESTEROL (test code = 2210) 261 MG/DL TRIGLYCERIDES (test code = 2232) 165 MG/DL HDL CHOLESTEROL (test code = 2220) 58 MG/DL CALC LDL CHOL (test code = 2237) 170 MG/DL RISK RATIO LDL/HDL (test code = 2.93 RATIO 2238) LIPID [id number] 00:00:00 Test Item Value Reference Range Interpretation Comments CHOLESTEROL (test code = 2210) 261 MG/DL TRIGLYCERIDES (test code = 2232) 165 MG/DL HDL CHOLESTEROL (test code = 2220) 58 MG/DL CALC LDL CHOL (test code = 2237) 170 MG/DL RISK RATIO LDL/HDL (test code = 2.93 RATIO 2238) CBC W/AUTO [id number] 00:00:00 Test Item Value Reference Range Interpretation [...] code = 1015) 378 K/UL CBC W/AUTO [id number] 00:00:00 Test Item Value Reference Range Interpretation [...] code = 1015) 378 K/UL CBC W/AUTO [id number] 00:00:00 Test Item Value Reference Range Interpretation [...] (test code = 1015) 378 K/UL HEMOGLOBIN [id number] 00:00:00 Test Item Value Reference Range Interpretation Comments HEMOGLOBIN A1c (test code = 50768) 6.4 % HEMOGLOBIN [id number] 00:00:00 Test Item Value Reference Range Interpretation Comments HEMOGLOBIN A1c (test code = 86459) 6.4 % HEMOGLOBIN [id number] 00:00:00 Test Item Value Reference Range Interpretation Comments HEMOGLOBIN A1c (test code = 28541) 6.4 % [id number] 00:00:00 Test Item Value Reference Range Interpretation Comments TSH (test code = 2821) 5.290 UIU/ML [id number] 00:00:00 Test Item Value Reference Range Interpretation Comments TSH (test code = 2821) 5.290 UIU/ML [id number] 00:00:00 Test Item Value Reference Range Interpretation Comments TSH (test code = 2821) 5.290 UIU/ML LIPID [id number] 00:00:00 Test Item Value Reference Range Interpretation Comments CHOLESTEROL (test code = 2210) 261 MG/DL TRIGLYCERIDES (test code = 2232) 165 MG/DL HDL CHOLESTEROL (test code = 2220) 58 MG/DL CALC LDL CHOL (test code = 2237) 170 MG/DL RISK RATIO LDL/HDL (test code = 2.93 RATIO 2238) CBC W/AUTO [id number] 00:00:00 Test Item Value Reference Range Interpretation [...] code = 1015) 378 K/UL CBC W/AUTO [id number] 00:00:00 Test Item Value Reference Range Interpretation [...] (test code = 1015) 378 K/UL HEMOGLOBIN [id number] 00:00:00 Test Item Value Reference Range Interpretation Comments HEMOGLOBIN A1c (test code = 32590) 6.4 % HEMOGLOBIN [id number] 00:00:00 Test Item Value Reference Range Interpretation Comments HEMOGLOBIN A1c (test code = 85540) 6.4 % [id number] 00:00:00 Test Item Value Reference Range Interpretation Comments TSH (test code = 2821) 5.290 UIU/ML [id number] 00:00:00 Test Item Value Reference Range Interpretation Comments TSH (test code = 2821) 5.290 UIU/ML LIPID [id number] 00:00:00 Test Item Value Reference Range Interpretation Comments CHOLESTEROL (test code = 2210) 261 MG/DL TRIGLYCERIDES (test code = 2232) 165 MG/DL HDL CHOLESTEROL (test code = 2220) 58 MG/DL CALC LDL CHOL (test code = 2237) 170 MG/DL RISK RATIO LDL/HDL (test code = 2.93 RATIO 2238) LIPID [id number] 00:00:00 Test Item Value Reference Range Interpretation Comments CHOLESTEROL (test code = 2210) 261 MG/DL TRIGLYCERIDES (test code = 2232) 165 MG/DL HDL CHOLESTEROL (test code = 2220) 58 MG/DL CALC LDL CHOL (test code = 2237) 170 MG/DL RISK RATIO LDL/HDL (test code = 2.93 RATIO 2238) CBC W/AUTO [id number] 00:00:00 Test Item Value Reference Range Interpretation [...] code = 1015) 378 K/UL CBC W/AUTO [id number] 00:00:00 Test Item Value Reference Range Interpretation [...] code = 1015) 378 K/UL CBC W/AUTO [id number] 00:00:00 Test Item Value Reference Range Interpretation [...] (test code = 1015) 378 K/UL HEMOGLOBIN [id number] 00:00:00 Test Item Value Reference Range Interpretation Comments HEMOGLOBIN A1c (test code = 50862) 6.4 % HEMOGLOBIN [id number] 00:00:00 Test Item Value Reference Range Interpretation Comments HEMOGLOBIN A1c (test code = 34681) 6.4 % HEMOGLOBIN [id number] 00:00:00 Test Item Value Reference Range Interpretation Comments HEMOGLOBIN A1c (test code = 63036) 6.4 % [id number] 00:00:00 Test Item Value Reference Range Interpretation Comments TSH (test code = 2821) 5.290 UIU/ML [id number] 00:00:00 Test Item Value Reference Range Interpretation Comments TSH (test code = 2821) 5.290 UIU/ML [id number] 00:00:00 Test Item Value Reference Range Interpretation [...] code = 2821) 1.030 UIU/ML COMPREHENSIVE METABOLIC [id number] 00:00:00 Test Item Value Reference Range Interpretation Comments GLUCOSE (test code = 2217) 106 MG/DL BUN (test code = 2208) 23 MG/DL CREATININE (test code = 2214) 0.66 MG/DL eGFR AMER. (test code 114 ML/MIN/1.73 = 09777) eGFR NON- AMER. (test 99 ML/MIN/1.73 code = 88152) CALC BUN/CREAT (test code = 35 RATIO [...] code = 2219) 31 U/L COMPREHENSIVE METABOLIC [id number] 00:00:00 Test Item Value Reference Range Interpretation Comments GLUCOSE (test code = 2217) 106 MG/DL BUN (test code = 2208) 23 MG/DL CREATININE (test code = 2214) 0.66 MG/DL eGFR AMER. (test code 114 ML/MIN/1.73 = 54087) eGFR NON- AMER. (test 99 ML/MIN/1.73 code = 19234) CALC BUN/CREAT (test code = 35 RATIO [...] code = 2821) 0.335 UIU/ML COMPREHENSIVE METABOLIC [id number] 00:00:00 Test Item Value Reference Range Interpretation Comments GLUCOSE (test code = 2217) 106 MG/DL BUN (test code = 2208) 23 MG/DL CREATININE (test code = 2214) 0.66 MG/DL eGFR AMER. (test code 114 ML/MIN/1.73 = 95694) eGFR NON- AMER. (test 99 ML/MIN/1.73 code = 39385) CALC BUN/CREAT (test code = 35 RATIO [...] code = 2821) 0.335 UIU/ML COMPREHENSIVE METABOLIC [id number] 00:00:00 Test Item Value Reference Range Interpretation Comments GLUCOSE (test code = 2217) 106 MG/DL BUN (test code = 2208) 23 MG/DL CREATININE (test code = 2214) 0.66 MG/DL eGFR AMER. (test code 114 ML/MIN/1.73 = 25315) eGFR NON- AMER. (test 99 ML/MIN/1.73 code = 74552) CALC BUN/CREAT (test code = 35 RATIO [...] code = 2219) 31 U/L COMPREHENSIVE METABOLIC [id number] 00:00:00 Test Item Value Reference Range Interpretation Comments GLUCOSE (test code = 2217) 106 MG/DL BUN (test code = 2208) 23 MG/DL CREATININE (test code = 2214) 0.66 MG/DL eGFR AMER. (test code 114 ML/MIN/1.73 = 39776) eGFR NON- AMER. (test 99 ML/MIN/1.73 code = 28255) CALC BUN/CREAT (test code = 35 RATIO [...] code = 2821) 0.335 UIU/ML COMPREHENSIVE METABOLIC [id number] 00:00:00 Test Item Value Reference Range Interpretation Comments GLUCOSE (test code = 2217) 103 MG/DL BUN (test code = 2208) 15 MG/DL CREATININE (test code = 2214) 0.77 MG/DL eGFR AMER. (test code 101 ML/MIN/1.73 = 74916) eGFR NON- AMER. (test 87 ML/MIN/1.73 code = 10414) CALC BUN/CREAT (test code = 19 RATIO [...] code = 2219) 24 U/L COMPREHENSIVE METABOLIC [id number] 00:00:00 Test Item Value Reference Range Interpretation Comments GLUCOSE (test code = 2217) 103 MG/DL BUN (test code = 2208) 15 MG/DL CREATININE (test code = 2214) 0.77 MG/DL eGFR AMER. (test code 101 ML/MIN/1.73 = 94144) eGFR NON- AMER. (test 87 ML/MIN/1.73 code = 51635) CALC BUN/CREAT (test code = 19 RATIO [...] code = 2821) 0.424 UIU/ML COMPREHENSIVE METABOLIC [id number] 00:00:00 Test Item Value Reference Range Interpretation Comments GLUCOSE (test code = 2217) 103 MG/DL BUN (test code = 2208) 15 MG/DL CREATININE (test code = 2214) 0.77 MG/DL eGFR AMER. (test code 101 ML/MIN/1.73 = 41674) eGFR NON- AMER. (test 87 ML/MIN/1.73 code = 14059) CALC BUN/CREAT (test code = 19 RATIO [...] code = 2821) 0.424 UIU/ML COMPREHENSIVE METABOLIC [id number] 00:00:00 Test Item Value Reference Range Interpretation Comments GLUCOSE (test code = 2217) 103 MG/DL BUN (test code = 2208) 15 MG/DL CREATININE (test code = 2214) 0.77 MG/DL eGFR AMER. (test code 101 ML/MIN/1.73 = 80928) eGFR NON- AMER. (test 87 ML/MIN/1.73 code = 86524) CALC BUN/CREAT (test code = 19 RATIO [...] code = 2219) 24 U/L COMPREHENSIVE METABOLIC [id number] 00:00:00 Test Item Value Reference Range Interpretation Comments GLUCOSE (test code = 2217) 103 MG/DL BUN (test code = 2208) 15 MG/DL CREATININE (test code = 2214) 0.77 MG/DL eGFR AMER. (test code 101 ML/MIN/1.73 = 32312) eGFR NON- AMER. (test 87 ML/MIN/1.73 code = 26427) CALC BUN/CREAT (test code = 19 RATIO [...] (test code = 2821) 0.424 UIU/ML CULTURE, [id number] 00:00:00 Test Item Value Reference Range Interpretation Comments CULTURE, URINE (test SPECIMEN NUMBER: code = 11286) [id number] CULTURE, [id number] 00:00:00 Test Item Value Reference Range Interpretation Comments CULTURE, URINE (test SPECIMEN NUMBER: code = 06828) [id number] CULTURE, [id number] 00:00:00 Test Item Value Reference Range Interpretation Comments CULTURE, URINE (test SPECIMEN NUMBER: code = 29589) [id number] CULTURE, [id number] 00:00:00 Test Item Value Reference Range Interpretation Comments CULTURE, URINE (test SPECIMEN NUMBER: code = 18367) [id number] CULTURE, [id number] 00:00:00 Test Item Value Reference Range Interpretation Comments CULTURE, URINE (test SPECIMEN NUMBER: code = 61961) [id number] CULTURE, [id number] 00:00:00 Test Item Value Reference Range Interpretation Comments CULTURE, URINE (test SPECIMEN NUMBER: code = 34489) [id number] CULTURE, [id number] 00:00:00 Test Item Value Reference Range Interpretation Comments CULTURE, URINE (test SPECIMEN NUMBER: code = 84178) [id number] CULTURE, [id number] 00:00:00 Test Item Value Reference Range Interpretation Comments CULTURE, URINE (test SPECIMEN NUMBER: code = 56827) [id number] CULTURE, [id number] 00:00:00 Test Item Value Reference Range Interpretation Comments CULTURE, URINE (test SPECIMEN NUMBER: code = 10998) [id number] CULTURE, [id number] 00:00:00 Test Item Value Reference Range Interpretation Comments CULTURE, URINE (test SPECIMEN NUMBER: code = 76190) [id number]
== END ==
LOC: ER 15:43
DX: Z02.9 Encounter for administrative examinations, unspecified (principal)

== ENCOUNTER 2022-02-11 10:08 | Emergency (ER) | payer OTHER ==
--- OUTSIDE RECORDS SUMMARY | 2022-02-11 10:26 | XMS REPORT | Continuity of Care Document ---
:1960 Author Organization [facility] t Address [address] [place] [address] Care Team Providers Name Role Phone Sharpless Primary Care Physician MATT SIMPSON Attending Clinician Unavailable MATT SIMPSON Attending Clinician Unavailable Doctor Unassigned, Gravity Attending Clinician Unavailable WALLY KRISHNAMURTHY Attending Clinician Unavailable Natacha Brewster Attending Clinician Payers Payer Name Policy Type Policy Number Effective Date Expiration Date Sarina castelan [facility] [id number] 2017 00:00:00 PLUS Problems This patient has [...] s TRANSDER - ity of MAL 00:00: [place] [facility] ACETAMIN DRUG Active Other-[facility] ers OPHEN INGREDI - ity of 00:00: [place] [facility] Hmg-Coa Propensi Inactiv Reductas ty to e 2-28 e adverse 00:00: Inhibito reaction 00 rs to drug Nitrogly Propensi Active 2017-03 cerin ty to 08 adverse 00:00: reaction 00 to drug Social History Social Habit Start Date Stop Date Quantity Comments Source Alcohol intake 2016-05-01 2016-05-01 Current [facility] es 00:00:00 00:00:00 non-drinker of Medical nter alcohol (finding) Sex Assigned At [birth year] [facility] 00:00:00 00:00:00 [facility] Smoking Status Start Date Stop Date Source Current every day smoker 2016-05-01 00:00:00 [facility] Medications Ordered Filled Start Stop Current Ordering Indication Dosage Frequency Signature Comments Components Source Medication Medication Date Date Medication? Clinician (SIG) Name Name LOSARTAN 2021-03 No POTASSIUM/H 2-05 YDROCHLOROT 00:00: HIAZ SAIDA 00 100-25 MG TABS ZOLPIDEM 2021-03 No TARTRATE 10 1-04 MG TABS 00:00: 00 ONDANSETRON 2021-03 No 4 4MG Tablets -04 00:00: 00 TAKE 2021-03 No TABLET BY 1-04 MOUTH DAILY 00:00: AT BEDTIME 00 TEMAZEPAM 2021-03 No 30 MG CAPS -04 00:00: 00 TAKE 2021-03 No TABLET BY 1-04 MOUTH EVERY 00:00: SIX HOURS 00 NEEDED VENLAFAXINE 2021-03 No HCL ER 150 1-04 MG CP24 00:00: 00 CLONIDINE 2021-03 No 3 HYDROCHLORI 1-04 DE 0.3 MG 00:00: TABS 00 ZOLPIDEM 2021-03 No TARTRATE 10 1-04 MG TABS 00:00: 00 TAKE 2021-03 No TABLET BY 1-04 MOUTH EVERY 00:00: SIX HOURS 00 NEEDED FOR NAUSEA AND VOMITING TAKE 2021-03 No TABLET BY 1-04 MOUTH DAILY 00:00: AT BEDTIME 00 Dose 2-1 No Unknown 1-04 00:00: 00 TAKE 1 2-1 No TABLET BY 1-04 MOUTH EVERY 00:00: SIX HOURS 00 NEEDED VENLAFAXINE 2-1 No HCL ER 150 1-04 MG CP24 00:00: 00 CLONIDINE 2-1 No HYDROCHLORI 1-04 DE 0.3 MG 00:00: TABS 00 CLONAZEPAM 2022-0 No 1 MG TABS 11-19 00:00: 00 CLONAZEPAM 2022-0 No 1 MG TABS 11-19 00:00: 00 CLONAZEPAM 2022-0 No 1 MG TABS 11-19 00:00: 00 TAKE 1 2-0 No TABLET BY 9-02 MOUTH EVERY 00:00: 12 HOURS 00 FOR 10 DAYS CLONAZEPAM 2022-0 No 2 MG TABS 11-08 00:00: 00 DICLOFENAC 2022-[address] 11-08 Tablets 00:00: 00 TAKE 2 2022-0 No 750 TABLETS BY 9 MOUTH THREE 00:00: TIMES DAILY 00 NEEDED TAKE 1 2-0 No TABLET BY 902 MOUTH EVERY 00:00: 12 HOURS 00 FOR 10 DAYS CLONAZEPAM 2022-0 No 2 MG TABS 11-08 00:00: 00 DICLOFENAC 2022-[address] - Tablets 00:00: 00 TAKE 2 2022-0 No 750 TABLETS BY 9-02 MOUTH THREE 00:00: TIMES DAILY 00 NEEDED TAKE 1 2-0 No TABLET BY -02 MOUTH EVERY 00:00: 12 HOURS 00 FOR 10 DAYS CLONAZEPAM 2022-0 No 2 MG TABS 11-08 00:00: 00 DICLOFENAC 2022-[address] 9-02 Tablets 00:00: 00 TAKE 2 2022-0 No 750 TABLETS BY 9-02 MOUTH THREE [...] Dose 2022-0 No Unknown 5-26 00:00: 00 Dose 2022-0 No Unknown 5-26 [...] 2022-0 No Unknown 4-06 00:00: 00 levothyroxi 2-0 No 1mcg ne 137 mcg 4-06 tablet 00:00: 00 Dose 2-0 No Unknown 4-06 00:00: 00 Dose 2-0 No Unknown 4-06 00:00: 00 Dose 2-0 No Unknown 4-06 00:00: 00 Dose 2022-0 No Unknown 4-06 00:00: 00 Dose 2022-0 No Unknown 4-06 00:00: 00 Dose 2-0 No Unknown 4-06 00:00: 00 Dose 2022-0 No Unknown 4-06 00:00: 00 Dose 2022-0 No Unknown 4-06 00:00: 00 Dose 2-0 No Unknown 4-06 00:00: 00 Dose 2-0 No Unknown 4-06 00:00: 00 Dose 2-0 [...] 137 mcg 1-28 tablet 00:00: 00 losartan 2-0 No 1mg 100 [...] 2020-1 No Unknown 0-19 00:00: 00 levothyroxi 2020-1 No 1mcg ne 137 mcg 0-19 tablet 00:00: 00 losartan 1-1 No 1mg 100 0-19 mg-hydrochl 00:00: orothiazide 00 25 mg tablet Dose 2020-1 No Unknown 0-19 00:00: 00 levothyroxi 2020-1 No 1mcg ne 137 mcg 0-19 tablet 00:00: 00 losartan 1-1 No 1mg 100 0-19 mg-hydrochl 00:00: orothiazide 00 25 mg tablet Dose 2020-1 No Unknown 0-19 00:00: 00 levothyroxi 2020-1 No 1mcg ne 137 mcg 0-19 tablet [...] ne 137 mcg 7-19 tablet 00:00: 00 Dose 2021-0 No Unknown [...] 1mg 10 mg 3-17 tablet 00:00: 00 ezetimibe 2021-0 No 1mg 10 mg 3-17 tablet 00:00: 00 liothyronin 2021-0 No 1mcg e 5 mcg 3-17 tablet 00:00: 00 levothyroxi 2021-0 No 1mcg ne 137 mcg 3-17 tablet 00:00: 00 liothyronin 2021-0 No [...] 00:00: nded 00 release 24 hr clonidine 2019- No 1mg HCl 0.2 mg 2-24 tablet 00:00: 00 losartan 2019- No 1mg 100 2-24 mg-hydrochl 00:00: orothiazide 00 25 mg tablet clonidine 2019- No 1mg HCl 0.2 mg 2-24 tablet 00:00: 00 losartan 2019- No 1mg 100 2-24 mg-hydrochl 00:00: orothiazide 00 25 mg tablet clonidine 2019- No 1mg HCl 0.2 mg 2-24 tablet 00:00: 00 losartan 2019- No 1mg 100 2-24 mg-hydrochl 00:00: orothiazide 00 25 mg tablet clonidine 2019- No 1mg HCl 0.2 mg 2-24 tablet 00:00: 00 losartan 2019- No 1mg 100 2-24 mg-hydrochl 00:00: orothiazide 00 25 mg tablet ondansetron 2019- No 1mg 4 mg 2-04 disintegrat 00:00: ing tablet 00 levothyroxi 2019-03 No 1mcg ne 125 mcg 2-04 tablet 00:00: 00 liothyronin 2019- No 1mcg e 5 mcg 2-04 tablet 00:00: 00 ondansetron 2019- No 1mg 4 mg 2-04 disintegrat 00:00: ing tablet 00 levothyroxi 2019- No 1mcg ne 125 mcg 2-04 tablet 00:00: 00 liothyronin 2019- No 1mcg e 5 mcg 2-04 tablet 00:00: 00 ondansetron 2019- No 1mg 4 mg 2-04 disintegrat 00:00: ing tablet 00 levothyroxi 2019- No 1mcg ne 125 mcg 2-04 tablet 00:00: 00 liothyronin 2019- No 1mcg e 5 mcg 2-04 tablet 00:00: 00 ondansetron 2019- No 1mg 4 mg 2-04 disintegrat 00:00: ing tablet 00 levothyroxi 2019-03 No 1mcg ne 125 mcg 2-04 tablet 00:00: 00 liothyronin 2019- No 1mcg e 5 mcg 2-04 tablet 00:00: 00 levothyroxi 2019-1 No 1mcg ne 125 mcg 0-08 tablet 00:00: 00 liothyronin 2020-1 No 1mcg e 5 mcg 0-08 tablet 00:00: 00 levothyroxi 2020-1 No 1mcg ne 125 mcg 0-08 tablet 00:00: 00 liothyronin 2020-1 No 1mcg e 5 mcg 0-08 tablet 00:00: 00 levothyroxi 2020-1 No 1mcg ne 125 mcg 0-08 tablet 00:00: 00 liothyronin 2020-1 No 1mcg e 5 mcg 0-08 tablet 00:00: 00 levothyroxi 2020-1 No 1mcg [...] Linzess 145 2020-0 No 1mcg mcg capsule -26 00:00: 00 metformin 2020-0 No mg ER 500 mg 3-26 tablet,exte 00:00: nded 00 release 24 hr paroxetine 2020-0 No 1mg 40 mg 3-26 tablet 00:00: 00 losartan 2020-0 No 1mg 100 3-26 mg-hydrochl 00:00: orothiazide 00 25 mg tablet clonidine 2020-0 No 1mg HCl 0.2 mg 3-26 tablet 00:00: 00 Zofran 4 mg 2020-0 No 1mg tablet -26 00:00: 00 metformin 2020-0 No 1mg ER [...] Flagyl 500 2018-1 No 1mg mg tablet 1- 00:00: 00 Flagyl 500 2018-1 No 1mg mg tablet 1- 00:00: 00 Flagyl 500 2018-1 No 1mg mg tablet 1- 00:00: 00 Premarin 2019-1 No 1mg 0.625 [...] 2018-1 No 1mg OTC 20 mg 1-08 tablet,mail 00:00: yed release 00 trazodone 2018-1 No 1mg 100 mg 1-08 tablet 00:00: 00 levothyroxi 2018-0 No 1mcg ne 137 mcg 9- tablet 00:00: 00 levothyroxi 2018-0 No 1mcg ne 137 mcg 9- tablet 00:00: 00 levothyroxi 2018-0 No 1mcg ne 137 mcg 9- tablet 00:00: 00 levothyroxi 2018-0 No 1mcg ne 137 mcg 9 tablet 00:00: 00 levothyroxi 2018-0 No 1mcg ne 150 mcg 8- tablet 00:00: 00 levothyroxi 2018-0 No 1mcg ne 150 mcg 8 tablet 00:00: 00 levothyroxi 2018-0 No 1mcg ne 150 mcg 11-04 tablet 00:00: 00 levothyroxi 2018-0 No 1mcg ne 150 mcg 11-04 tablet 00:00: 00 amlodipine 2018-0 No 1mg [...] ondansetron 2018-0 No 1mg HCl 4 mg 09-22 tablet 00:00: 00 levothyroxi 2018-0 No 1mcg [...] 150 mcg 2-20 tablet 00:00: 00 hydrochloro 2016- No 1mg thiazide 25 2-20 mg tablet 00:00: 00 levothyroxi 2016- No 1mcg ne 150 mcg 2-20 tablet 00:00: 00 hydrochloro 2016- No 1mg thiazide 25 2-20 mg tablet 00:00: 00 levothyroxi 2016- No 1mcg ne 150 mcg 2-20 tablet 00:00: 00 paroxetine 2016- No 1mg 40 mg 1-15 tablet 00:00: 00 paroxetine 2016- No 1mg 40 mg 1-15 tablet 00:00: 00 risperidone 2016- No 1mg 1 mg tablet 1-15 00:00: 00 Trileptal 2016- No 1mg 600 mg 1-15 tablet 00:00: 00 mirtazapine 2016- No 1mg 30 mg 1-15 tablet 00:00: 00 paroxetine 2016- No 1mg 40 mg 1-15 tablet 00:00: 00 paroxetine 2016- No 1mg 40 mg 1-15 tablet 00:00: 00 risperidone 2016- No 1mg 1 mg tablet 1-15 00:00: 00 Trileptal 2016- No 1mg 600 mg 1-15 tablet 00:00: 00 mirtazapine 2016- No 1mg 30 mg 1-15 tablet 00:00: 00 paroxetine 2016- No 1mg 40 mg 1-15 tablet 00:00: 00 paroxetine 2016- No 1mg 40 mg 1-15 tablet 00:00: 00 risperidone 2016-1 No 1mg 1 mg tablet 1-15 00:00: 00 Trileptal 2016- No 1mg 600 mg 1-15 tablet 00:00: 00 mirtazapine 2016- No 1mg 30 mg 1-15 tablet 00:00: 00 paroxetine 2016- No 1mg 40 mg 1-15 tablet 00:00: 00 paroxetine 2016- No 1mg 40 mg 1-15 tablet 00:00: 00 risperidone 2016- No 1mg 1 mg tablet 1-15 00:00: 00 Trileptal 2016- No 1mg 600 mg 1-15 tablet 00:00: 00 mirtazapine 2016- No 1mg 30 mg 1-15 tablet 00:00: 00 levothyroxi 2016- No 1mcg ne 150 mcg 0-24 tablet [...] Keflex 500 2017-0 No 1mg mg capsule 08-11 00:00: 00 Keflex 500 2017-0 No 1mg mg capsule 08-11 00:00: 00 Keflex 500 2017-0 No 1mg mg capsule 08-11 00:00: 00 Keflex 500 2017-0 No 1mg mg capsule 08-11 00:00: 00 hydrochloro 2017-0 No 1mg thiazide 50 5-30 mg tablet 00:00: 00 ondansetron 2017-0 No 1mg HCl 8 mg 5-30 tablet 00:00: 00 paroxetine 2017-0 No 1mg 40 mg 5-30 tablet 00:00: 00 hydrochloro 2017-0 No 1mg thiazide [...] pamoate 50 5-30 mg capsule 00:00: 00 clonidine 2017-0 No 1mg HCl [...] [facility] OXcarbazepi 2017-0 Yes 600mg Q.[id number] Take [address] [facility] [address] ne 2-23 [id number] [facility] 10:23: 3D mouth 3 Med ical 600 MG 59 (three) Center tablet times daily. PARoxetine 2017-0 Yes 40mg QD Take [address] (PAXIL) 40 2-23 by mouth [facility] tablet 10:23: nightly. [address] OXcarbazepi 2017-0 Yes 600mg Q.[id number] Take [address] [address] ne 2-23 [id number] [facility] (TRILEPTAL) 10:23: 3D mouth 3 Med ical 600 MG 59 (three) Center tablet times daily. PARoxetine 2017-0 Yes 40mg QD Take [address] (PAXIL) 40 2-23 by [facility] tablet 10:23: nightly. [address] OXcarbazepi 2017-0 Yes 600mg Q.[id number] Take [address] ne 2-23 [id number] [facility] (TRILEPTAL) 10:23: 3D mouth 3 Med ical 600 MG 59 (three) Center tablet times daily. PARoxetine 2017-0 Yes 40mg QD Take [address] (PAXIL) 40 2-23 by [facility] tablet 10:23: nightly. [address] OXcarbazepi 2017-0 Yes 600mg Q.[id number] Take [address] ne 2-23 [id number] [facility] (TRILEPTAL) 10:23: 3D mouth 3 Med ical 600 MG 59 (three) Center tablet times daily. OXcarbazepi 2017-0 Yes 600mg Q.[id number] Take [address] ne 2-23 [id number] [facility] (TRILEPTAL) 10:23: 3D mouth 3 Med ical 600 MG 59 (three) Center tablet times daily. PARoxetine 2017-0 Yes 40mg QD Take [address] (PAXIL) 40 2-23 by [facility] tablet 10:23: nightly. [address] PARoxetine 2017-0 Yes 40mg QD Take [address] (PAXIL) 40 2-23 by [facility] tablet 10:23: nightly. [address] OXcarbazepi 2017-0 Yes 600mg Q.[id number] Take [address] [address] ne 2-23 [id number] [facility] (TRILEPTAL) 10:23: 3D mouth 3 Med ical 600 MG 59 (three) Center tablet times daily. PARoxetine 2017-0 Yes 40mg QD Take [address] (PAXIL) 40 2-23 by [facility] tablet 10:23: nightly. [address] PARoxetine 2017-0 Yes 40mg QD Take [address] (PAXIL) 40 2-23 by [facility] tablet 10:23: nightly. [address] OXcarbazepi 2017-0 Yes 600mg Q.[id number] Take [address] ne 2-23 [id number] [facility] (TRILEPTAL) 10:23: 3D mouth 3 Med ical 600 MG 59 (three) Center tablet times daily. OXcarbazepi 2017-0 Yes 600mg Q.58310535 Take [address] ne 2-23 [id number] [facility] (TRILEPTAL) 10:23: 3D mouth 3 Med ical 600 MG 59 (three) Center tablet times daily. PARoxetine 2017-0 Yes 40mg QD Take [address] (PAXIL) 40 2-23 by [facility] tablet 10:23: nightly. [address] OXcarbazepi 2017-0 Yes 600mg Q.[id number] Take [address] ne 2-23 [id number] [facility] (TRILEPTAL) 10:23: 3D mouth 3 Med ical 600 MG 59 (three) Center tablet times daily. PARoxetine 2017-0 Yes 40mg QD Take [address] (PAXIL) 40 2-23 by [facility] tablet 10:23: nightly. [address] PARoxetine 2017-0 Yes 40mg QD Take [address] (PAXIL) 40 2-23 by [facility] tablet 10:23: nightly. [address] OXcarbazepi 2017-0 Yes 600mg Q.00506195 Take [address] ne 2-23 [id number] mg [facility] (TRILEPTAL) 10:23: 3D mouth 3 Med ical 600 MG 59 (three) Center tablet times daily. OXcarbazepi 2017-0 Yes 600mg Q.[id number] Take [address] ne 2-23 [id number] [facility] (TRILEPTAL) 10:23: 3D mouth 3 Med ical 600 MG 59 (three) Center tablet times daily. PARoxetine 2017-0 Yes 40mg QD Take [address] (PAXIL) 40 2-23 by mouth [facility] tablet 10:23: nightly. [address] OXcarbazepi 2017-0 Yes 600mg Q.19493271 Take [address] ne 2-23 [id number] [facility] by [facility] (TRILEPTAL) 10:23: 3D mouth 3 Med ical 600 MG 59 (three) Center tablet times daily. PARoxetine 2017-0 Yes 40mg QD Take [address] (PAXIL) 40 2-23 by mouth [facility] tablet 10:23: nightly. [address] OXcarbazepi 2017-0 Yes 600mg Q.10148498 Take [address] ne 2-23 [id number] [facility] (TRILEPTAL) 10:23: 3D mouth 3 Med ical 600 MG 59 (three) Center tablet times daily. PARoxetine 2017-0 Yes 40mg QD Take [address] (PAXIL) 40 2-23 by mouth [facility] tablet 10:23: nightly. [address] OXcarbazepi 2017-0 Yes 600mg Q.23414103 Take [address] ne 2-23 [id number] [facility] (TRILEPTAL) 10:23: 3D mouth [...] Time Observation Value Comments Source BP Systolic 2022-02-10 09:36:00 103 mm[Hg] BP Diastolic 2022-02-10 09:36:00 69 mm[Hg] Weight Measured 2022-02-10 09:36:00 165.40 pounds Height Measured 2022-02-10 09:36:00 66.00 inches Body Temperature 2022-02-10 09:36:00 98.10 degrees Heart Rate 2022-02-10 09:36:00 69.00 /min Respiratory Rate 2022-02-10 09:36:00 18.00 /min BP Systolic 2022-01-10 09:27:00 177 mm[Hg] BP [...] Goal Plan of Care Note [code = 19084-2] Goal Plan of Care Note [code = 18080-0] Goal Plan of Care Note [code = 41915-8] Goal Plan of Care Note [code = 05940-9] Goal Plan of Care Note [code = 88994-7] Goal Plan of Care Note [code = 95471-2] Goal Plan of Care Note [code = 17879-1] Goal Plan of Care Note [code = 87172-2] Goal Plan of Care Note [code = 16973-2] Goal Plan of Care Note [code = 23236-2] Goal Plan of Care Note [code = 51350-9] Goal Plan of Care Note [code = 47702-4] Goal Plan of Care Note [code = 38535-7] Goal Plan of Care Note [code = 69823-4] Goal Plan of Care Note [code = 37699-0] Goal Plan of Care Note [code = 71123-5] Goal Plan of Care Note [code = 00454-7] Goal Plan of Care Note [code = 08473-7] Goal Plan of Care Note [code = 30096-4] Goal Plan of Care Note [code = 53805-7] Goal Plan of Care Note [code = 09767-1] Goal Plan of Care Note [code = 41568-5] Goal Plan of Care Note [code = 21241-8] Goal Plan of Care Note [code = 80358-0] Goal Plan of Care Note [code = 41176-6] Goal Plan of Care Note [code = 12994-9] Goal Plan of Care Note [code = 21836-3] Goal Plan of Care Note [code = 38728-0] Goal Plan of Care Note [code = 13601-7] Goal Plan of Care Note [code = 85653-0] Goal Plan of Care Note [code = 98501-1] Goal Plan of Care Note [code = 15420-7] Goal Plan of Care Note [code = 87892-6] Goal Plan of Care Note [code = 14035-4] Goal Plan of Care Note [code = 65225-5] Goal Plan of Care Note [code = 81020-2] Goal Plan of Care Note [code = 62194-7] Goal Plan of Care Note [code = 08021-8] Goal Plan of Care Note [code = 42553-3] Goal Plan of Care Note [code = 83070-1] Goal Plan of Care Note [code = 10742-4] Goal Plan of Care Note [code = 31483-0] Goal Plan of Care Note [code = 30184-2] Goal Plan of Care Note [code = 02248-5] Goal Plan of Care Note [code = 28475-5] Goal Plan of Care Note [code = 34425-9] Goal Plan of Care Note [code = 57284-5] Goal Plan of Care Note [code = 47205-7] Goal Plan of Care Note [code = 13372-6] Goal Plan of Care Note [code = 09286-6] Goal Plan of Care Note [code = 46143-7] Goal Plan of Care Note [code = 04938-1] Goal Plan of Care Note [code = 79392-5] Goal Plan of Care Note [code = 79853-2] Goal Plan of Care Note [code = 21025-6] Goal Plan of Care Note [code = 01150-4] Goal Plan of Care Note [code = 71498-1] Goal Plan of Care Note [code = 86392-3] Goal Plan of Care Note [code = 80831-6] Goal Plan of Care Note [code = 00620-9] Goal Plan of Care Note [code = 16909-7] Goal Plan of Care Note [code = 50435-1] Goal Plan of Care Note [code = 19099-9] Goal Plan of Care Note [code = 04451-3] Goal Plan of Care Note [code = 32228-2] Goal Plan of Care Note [code = 94313-3] Goal Plan of Care Note [code = 57839-7] Goal Plan of Care Note [code = 06634-6] Goal Plan of Care Note [code = 58213-4] Goal Plan of Care Note [code = 51965-8] Goal Plan of Care Note [code = 34443-1] Goal Plan of Care Note [code = 44246-0] Goal Plan of Care Note [code = 60272-8] Goal Plan of Care Note [code = 94318-9] Goal Plan of Care Note [code = 27622-5] Goal Plan of Care Note [code = 35324-3] Goal Plan of Care Note [code = 38692-8] Goal Plan of Care Note [code = 92792-2] Goal Plan of Care Note [code = 51448-6] Goal Plan of Care Note [code = 07392-4] Goal Plan of Care Note [code = 43967-9] Goal Plan of Care Note [code = 42204-8] Goal Plan of Care Note [code = 06182-8] Goal Plan of Care Note [code = 24485-9] Goal Plan of Care Note [code = 24688-7] Goal Plan of Care Note [code = 26291-3] Goal Plan of Care Note [code = 16861-1] Goal Plan of Care Note [code = 99424-8] Goal Plan of Care Note [code = 78603-7] Goal Plan of Care Note [code = 15368-7] Goal Plan of Care Note [code = 82852-5] Goal Plan of Care Note [code = 07275-2] Goal Plan of Care Note [code = 65632-2] Goal Plan of Care Note [code = 62360-7] Goal Plan of Care Note [code = 43736-9] Goal Plan of Care Note [code = 95000-6] Goal Plan of Care Note [code = 62953-9] Goal Plan of Care Note [code = 59226-5] Goal Plan of Care Note [code = 26687-9] Goal Plan of Care Note [code = 96470-2] Goal Plan of Care Note [code = 47966-9] Goal Plan of Care Note [code = 84405-5] Goal Plan of Care Note [code = 32708-4] Goal Plan of Care Note [code = 15689-0] Goal Plan of Care Note [code = 16784-5] Goal Plan of Care Note [code = 92938-5] Goal Plan of Care Note [code = 18518-9] Goal Plan of Care Note [code = 43187-8] Goal Plan of Care Note [code = 19267-1] Goal Plan of Care Note [code = 79134-9] Goal Plan of Care Note [code = 85927-3] Goal Plan of Care Note [code = 00049-6] Goal Plan of Care Note [code = 58095-8] Goal Plan of Care Note [code = 79065-1] Goal Plan of Care Note [code = 65450-3] Goal Plan of Care Note [code = 11181-5] Goal Plan of Care Note [code = 46009-7] Goal Plan of Care Note [code = 19722-4] Goal Plan of Care Note [code = 40309-8] Goal Plan of Care Note [code = 21069-9] Goal Plan of Care Note [code = 26502-7] Goal Plan of Care Note [code = 23716-6] Goal Plan of Care Note [code = 90773-6] Goal Plan of Care Note [code = 00664-5] Goal Plan of Care Note [code = 82701-6] Goal Plan of Care Note [code = 02477-9] Goal Plan of Care Note [code = 09438-9] Goal Plan of Care Note [code = 33181-0] Goal Plan of Care Note [code = 50741-4] Goal Plan of Care Note [code = 49486-3] Goal Plan of Care Note [code = 91445-2] Goal Plan of Care Note [code = 98414-0] Goal Plan of Care Note [code = 31410-0] Goal Plan of Care Note [code = 01080-7] Goal Plan of Care Note [code = 26739-1] Goal Plan of Care Note [code = 86216-5] Goal Plan of Care Note [code = 69168-7] Goal Plan of Care Note [code = 75826-2] Goal Plan of Care Note [code = 12731-2] Goal Plan of Care Note [code = 13953-9] Goal Plan of Care Note [code = 07816-5] Goal Plan of Care Note [code = 81349-4] Goal Plan of Care Note [code = 39367-6] Goal Plan of Care Note [code = 55893-5] Goal Plan of Care Note [code = 57674-7] Goal Plan of Care Note [code = 92363-4] Goal Plan of Care Note [code = 97969-1] Goal Plan of Care Note [code = 02009-8] Goal Plan of Care Note [code = 00928-7] Goal Plan of Care Note [code = 12868-2] Goal Plan of Care Note [code = 35289-8] Goal Plan of Care Note [code = 45225-4] Goal Plan of Care Note [code = 34043-3] Goal Plan of Care Note [code = 05260-4] Goal Plan of Care Note [code = 22980-7] Goal Plan of Care Note [code = 59227-9] Goal Plan of Care Note [code = 75623-8] Goal Plan of Care Note [code = 18438-6] Goal Plan of Care Note [code = 43259-7] Goal Plan of Care Note [code = 15827-7] Goal Plan of Care Note [code = 67927-4] Goal Plan of Care Note [code = 40937-3] Goal Plan of Care Note [code = 32757-7] Goal Plan of Care Note [code = 94426-2] Goal Plan of Care Note [code = 36968-8] Goal Plan of Care Note [code = 16282-0] Goal Plan of Care Note [code = 50198-5] Goal Plan of Care Note [code = 82967-8] Goal Plan of Care Note [code = 61524-6] Goal Plan of Care Note [code = 13011-9] Goal Plan of Care Note [code = 26206-5] Goal Plan of Care Note [code = 26323-1] Goal Plan of Care Note [code = 42108-0] Goal Plan of Care Note [code = 38915-4] Goal Plan of Care Note [code = 83155-5] Goal Plan of Care Note [code = 83552-1] Goal Plan of Care Note [code = 70903-7] Goal Plan of Care Note [code = 74766-1] Goal Plan of Care Note [code = 58651-7] Goal Plan of Care Note [code = 19836-4] Goal Plan of Care Note [code = 40395-5] Goal Plan of Care Note [code = 75199-9] Goal Plan of Care Note [code = 36800-6] Goal Plan of Care Note [code = 14931-5] Goal Plan of Care Note [code = 18609-5] Goal Plan of Care Note [code = 95153-4] Goal Plan of Care Note [code = 21249-7] Goal Plan of Care Note [code = 73419-6] Goal Plan of Care Note [code = 50317-3] Goal Plan of Care Note [code = 14403-0] Goal Plan of Care Note [code = 49006-8] Goal Plan of Care Note [code = 33122-4] Goal Plan of Care Note [code = 41849-8] Goal Plan of Care Note [code = 71862-3] Goal Plan of Care Note [code = 77577-0] Goal Plan of Care Note [code = 27731-6] Goal Plan of Care Note [code = 77371-1] Goal Plan of Care Note [code = 34680-1] Goal Plan of Care Note [code = 41000-4] Goal Plan of Care Note [code = 23963-5] Goal Plan of Care Note [code = 95919-5] Goal Plan of Care Note [code = 68203-6] Goal Plan of Care Note [code = 71908-1] Goal Plan of Care Note [code = 42696-5] Goal Plan of Care Note [code = 92862-4] Goal Plan of Care Note [code = 06312-5] Goal Plan of Care Note [code = 99569-7] Goal Plan of Care Note [code = 70482-7] Encounters Start End Encounter Admission Attending Care Care Encounter Source Date/Time Date/Time Type Type Clinicians Facility Department ID 2021-06-01 Outpatient [facility] [id number] [place] 01:36:29 [id number] [facility] 2022-02-11 2022-02-11 Outpatient SFA SFA [id number] Cristian 09:04:48 09:04:48 1206 F Jerman 2022-02-10 2022-02-10 Outpatient SFA SFA [id number] 022 Cristian 09:29:34 09:29:34 1205 F Jerman 2022-02-10 2022-02-10 Outpatient [id number] [id number] 00:00:00 00:00:00 Visit 4089-4cab 089-4cab-9 -3kh5-u3w bf5-d7m337 176otaq80 bafa93 2022-01-10 2022-01-10 Outpatient SFA SFA [id number] 022 Cristian 09:16:14 09:16:14 1104 F Jerman 2022-01-10 2022-01-10 Outpatient b4bcpdn1- [id number] accaa6-a 00:00:00 00:00:00 Visit aca9-4c83 ca9-4c83-a -z3jv-rd8 7eb-bc13f3 8i7z659w9 f032f9 2021-12-19 2021-12-19 Outpatient SFA SFA [id number] 022 Cristian 16:11:31 16:11:31 1013 F Jerman 2021-12-19 2021-12-19 Outpatient [id number] 466cae-[id number] 00:00:00 00:00:00 Visit i857-540k 770-441f-a -adae-62b amelia-62bace htupr90fc fd81af 2021-09-17 2021-09-17 Outpatient rup5lbbd- [id number] w2zbpr-7 00:00:00 00:00:00 Visit 935a-4f50 35a-4f50-b -l52v-c4b 77d-c2ba85 [id number] 1264a6 2020-08-03 2020-08-03 Outpatient R MATT SIMPSON [facility] [id number] [facility] 10:00:00 10:00:00 MATT SIMPSON [facility] 2020-07-25 2020-07-25 Orders Doctor ABE [id number] 00:00:00 00:00:00 Only Unassigned, BK [id number] [facility] [id number] 2019-09-26 2019-09-26 Outpatient R RAGHU [facility] [id number] [facility] 16:00:00 16:00:00 [facility] 2018-10-21 2018-10-21 Telephone Gramm, [facility] [id number] 00:00:00 00:00:00 Natacha Shar Nguyen [id number] [place] [id number] [place] [phone] [address] Results Test Description Test Time Test Comments Results Result Comments Source TSH, THIRD GENERATION 2021-06-27 05:15:49 Test Item Value Reference Range Interpretation Comme nts TSH, THIRD GENERATION (test code = 2821) 2.080 UIU/ML 0.400-4.100 HEMOGLOBIN [id number] 03:46:00 Test Item Value Reference Range Interpretation Comments HEMOGLOBIN A1c (test 6.6 % 4.2-5.6 H AMERIC AN DIABETES code = 14926) ASSOCIATION IDELIN[employer] FOR HGB A1C: PREDIABETES/INC REASED [...] PER FORMED [facility], I MS. [address] [place] [address] 3532 LABORATORY DIRE CTOR: DIANA RUSS M.D. ESTEBAN NUMBER [id number] [facility] [place]. [id number] LIPID [id number] 02:59:52 Test Item Value Reference Range Interpretation [...] MOREINFORMATION , SEE CLIENT ANNOUNCE MENT AT [email or web address] RISK RATIO LDL/HDL 4.02 RATIO <3.22 H (test code = 2238) [id number] 00:00:00 Test Item Value Reference Range Interpretation Comments TSH, THIRD GENERATION (test code 2.080 UIU/ML = 2821) [id number] 00:00:00 Test Item Value Reference Range Interpretation Comments TSH, THIRD GENERATION (test code 2.080 UIU/ML = 2821) [id number] 00:00:00 Test Item Value Reference Range Interpretation Comments TSH, THIRD GENERATION (test code 2.080 UIU/ML = 2821) LIPID [id number] 00:00:00 Test Item Value Reference Range Interpretation Comments CHOLESTEROL (test code = 2210) 292 MG/DL TRIGLYCERIDES (test code = 2232) 184 MG/DL HDL CHOLESTEROL (test code = 2220) 51 MG/DL CALC LDL CHOL (test code = 2237) 205 MG/DL RISK RATIO LDL/HDL (test code = 4.02 RATIO 2238) LIPID [id number] 00:00:00 Test Item Value Reference Range Interpretation Comments CHOLESTEROL (test code = 2210) 292 MG/DL TRIGLYCERIDES (test code = 2232) 184 MG/DL HDL CHOLESTEROL (test code = 2220) 51 MG/DL CALC LDL CHOL (test code = 2237) 205 MG/DL RISK RATIO LDL/HDL (test code = 4.02 RATIO 2238) HEMOGLOBIN [id number] 00:00:00 Test Item Value Reference Range Interpretation Comments HEMOGLOBIN A1c (test code = 62529) 6.6 % HEMOGLOBIN [id number] 00:00:00 Test Item Value Reference Range Interpretation Comments HEMOGLOBIN A1c (test code = 08145) 6.6 % HEMOGLOBIN [id number] 00:00:00 Test Item Value Reference Range Interpretation Comments HEMOGLOBIN A1c (test code = 16426) 6.6 % [id number] 00:00:00 Test Item Value Reference Range Interpretation Comments TSH, THIRD GENERATION (test code 2.080 UIU/ML = 2821) [id number] 00:00:00 Test Item Value Reference Range Interpretation Comments TSH, THIRD GENERATION (test code 2.080 UIU/ML = 2821) [id number] 00:00:00 Test Item Value Reference Range Interpretation Comments TSH, THIRD GENERATION (test code 2.080 UIU/ML = 2821) LIPID [id number] 00:00:00 Test Item Value Reference Range Interpretation Comments CHOLESTEROL (test code = 2210) 292 MG/DL TRIGLYCERIDES (test code = 2232) 184 MG/DL HDL CHOLESTEROL (test code = 2220) 51 MG/DL CALC LDL CHOL (test code = 2237) 205 MG/DL RISK RATIO LDL/HDL (test code = 4.02 RATIO 2238) LIPID [id number] 00:00:00 Test Item Value Reference Range Interpretation Comments CHOLESTEROL (test code = 2210) 292 MG/DL TRIGLYCERIDES (test code = 2232) 184 MG/DL HDL CHOLESTEROL (test code = 2220) 51 MG/DL CALC LDL CHOL (test code = 2237) 205 MG/DL RISK RATIO LDL/HDL (test code = 4.02 RATIO 2238) HEMOGLOBIN [id number] 00:00:00 Test Item Value Reference Range Interpretation Comments HEMOGLOBIN A1c (test code = 18369) 6.6 % HEMOGLOBIN [id number] 00:00:00 Test Item Value Reference Range Interpretation Comments HEMOGLOBIN A1c (test code = 82836) 6.6 % HEMOGLOBIN [id number] 00:00:00 Test Item Value Reference Range Interpretation Comments HEMOGLOBIN A1c (test code = 30718) 6.6 % [id number] 00:00:00 Test Item Value Reference Range Interpretation Comments TSH, THIRD GENERATION (test code 2.080 UIU/ML = 2821) [id number] 00:00:00 Test Item Value Reference Range Interpretation Comments TSH, THIRD GENERATION (test code 2.080 UIU/ML = 2821) LIPID [id number] 00:00:00 Test Item Value Reference Range Interpretation Comments CHOLESTEROL (test code = 2210) 292 MG/DL TRIGLYCERIDES (test code = 2232) 184 MG/DL HDL CHOLESTEROL (test code = 2220) 51 MG/DL CALC LDL CHOL (test code = 2237) 205 MG/DL RISK RATIO LDL/HDL (test code = 4.02 RATIO 2238) HEMOGLOBIN [id number] 00:00:00 Test Item Value Reference Range Interpretation Comments HEMOGLOBIN A1c (test code = 76749) 6.6 % HEMOGLOBIN [id number] 00:00:00 Test Item Value Reference Range Interpretation Comments HEMOGLOBIN A1c (test code = 52907) 6.6 % [id number] 00:00:00 Test Item Value Reference Range Interpretation Comments TSH, THIRD GENERATION (test code 2.080 UIU/ML = 2821) [id number] 00:00:00 Test Item Value Reference Range Interpretation Comments TSH, THIRD GENERATION (test code 2.080 UIU/ML = 2821) [id number] 00:00:00 Test Item Value Reference Range Interpretation Comments TSH, THIRD GENERATION (test code 2.080 UIU/ML = 2821) LIPID [id number] 00:00:00 Test Item Value Reference Range Interpretation Comments CHOLESTEROL (test code = 2210) 292 MG/DL TRIGLYCERIDES (test code = 2232) 184 MG/DL HDL CHOLESTEROL (test code = 2220) 51 MG/DL CALC LDL CHOL (test code = 2237) 205 MG/DL RISK RATIO LDL/HDL (test code = 4.02 RATIO 2238) LIPID [id number] 00:00:00 Test Item Value Reference Range Interpretation Comments CHOLESTEROL (test code = 2210) 292 MG/DL TRIGLYCERIDES (test code = 2232) 184 MG/DL HDL CHOLESTEROL (test code = 2220) 51 MG/DL CALC LDL CHOL (test code = 2237) 205 MG/DL RISK RATIO LDL/HDL (test code = 4.02 RATIO 2238) HEMOGLOBIN [id number] 00:00:00 Test Item Value Reference Range Interpretation Comments HEMOGLOBIN A1c (test code = 28864) 6.6 % HEMOGLOBIN [id number] 00:00:00 Test Item Value Reference Range Interpretation Comments HEMOGLOBIN A1c (test code = 70348) 6.6 % HEMOGLOBIN [id number] 00:00:00 Test Item Value Reference Range Interpretation Comments HEMOGLOBIN A1c (test code = 66145) 6.6 % HEMOGLOBIN [id number] 00:00:00 Test Item Value Reference Range Interpretation Comments HEMOGLOBIN A1c (test code = 60335) 6.8 % HEMOGLOBIN [id number] 00:00:00 Test Item Value Reference Range Interpretation Comments HEMOGLOBIN A1c (test code = 10747) 6.8 % HEMOGLOBIN [id number] 00:00:00 Test Item Value Reference Range Interpretation Comments HEMOGLOBIN A1c (test code = 61225) 6.8 % LIPID [id number] 00:00:00 Test Item Value Reference Range Interpretation Comments CHOLESTEROL (test code = 2210) 303 MG/DL TRIGLYCERIDES (test code = 2232) 191 MG/DL HDL CHOLESTEROL (test code = 2220) 61 MG/DL CALC LDL CHOL (test code = 2237) 205 MG/DL RISK RATIO LDL/HDL (test code = 3.36 RATIO 2238) LIPID [id number] 00:00:00 Test Item Value Reference Range Interpretation Comments CHOLESTEROL (test code = 2210) 303 MG/DL TRIGLYCERIDES (test code = 2232) 191 MG/DL HDL CHOLESTEROL (test code = 2220) 61 MG/DL CALC LDL CHOL (test code = 2237) 205 MG/DL RISK RATIO LDL/HDL (test code = 3.36 RATIO 2238) [id number] 00:00:00 Test Item Value Reference Range Interpretation Comments TSH, THIRD GENERATION (test code 0.769 UIU/ML = 2821) [id number] 00:00:00 Test Item Value Reference Range Interpretation Comments TSH, THIRD GENERATION (test code 0.769 UIU/ML = 2821) [id number] 00:00:00 Test Item Value Reference Range Interpretation Comments TSH, THIRD GENERATION (test code 0.769 UIU/ML = 2821) COMPREHENSIVE METABOLIC [id number] 00:00:00 Test Item Value Reference Range Interpretation Comments GLUCOSE (test code = 2217) 131 MG/DL BUN (test code = 2208) 13 MG/DL CREATININE (test code = 2214) 0.65 MG/DL eGFR AMER. (test code 113 ML/MIN/1.73 = 57620) eGFR NON- AMER. (test 97 ML/MIN/1.73 code = 11614) CALC BUN/CREAT (test code = 20 RATIO [...] code = 2219) 23 U/L COMPREHENSIVE METABOLIC [id number] 00:00:00 Test Item Value Reference Range Interpretation Comments GLUCOSE (test code = 2217) 131 MG/DL BUN (test code = 2208) 13 MG/DL CREATININE (test code = 2214) 0.65 MG/DL eGFR AMER. (test code 113 ML/MIN/1.73 = 17398) eGFR NON- AMER. (test 97 ML/MIN/1.73 code = 14084) CALC BUN/CREAT (test code = 20 RATIO [...] (test code = 2219) 23 U/L HEMOGLOBIN [id number] 00:00:00 Test Item Value Reference Range Interpretation Comments HEMOGLOBIN A1c (test code = 53372) 6.8 % HEMOGLOBIN [id number] 00:00:00 Test Item Value Reference Range Interpretation Comments HEMOGLOBIN A1c (test code = 13077) 6.8 % HEMOGLOBIN [id number] 00:00:00 Test Item Value Reference Range Interpretation Comments HEMOGLOBIN A1c (test code = 46650) 6.8 % LIPID [id number] 00:00:00 Test Item Value Reference Range Interpretation Comments CHOLESTEROL (test code = 2210) 303 MG/DL TRIGLYCERIDES (test code = 2232) 191 MG/DL HDL CHOLESTEROL (test code = 2220) 61 MG/DL CALC LDL CHOL (test code = 2237) 205 MG/DL RISK RATIO LDL/HDL (test code = 3.36 RATIO 2238) LIPID [id number] 00:00:00 Test Item Value Reference Range Interpretation Comments CHOLESTEROL (test code = 2210) 303 MG/DL TRIGLYCERIDES (test code = 2232) 191 MG/DL HDL CHOLESTEROL (test code = 2220) 61 MG/DL CALC LDL CHOL (test code = 2237) 205 MG/DL RISK RATIO LDL/HDL (test code = 3.36 RATIO 2238) [id number] 00:00:00 Test Item Value Reference Range Interpretation Comments TSH, THIRD GENERATION (test code 0.769 UIU/ML = 2821) [id number] 00:00:00 Test Item Value Reference Range Interpretation Comments TSH, THIRD GENERATION (test code 0.769 UIU/ML = 2821) [id number] 00:00:00 Test Item Value Reference Range Interpretation Comments TSH, THIRD GENERATION (test code 0.769 UIU/ML = 2821) COMPREHENSIVE METABOLIC [id number] 00:00:00 Test Item Value Reference Range Interpretation Comments GLUCOSE (test code = 2217) 131 MG/DL BUN (test code = 2208) 13 MG/DL CREATININE (test code = 2214) 0.65 MG/DL eGFR AMER. (test code 113 ML/MIN/1.73 = 83736) eGFR NON- AMER. (test 97 ML/MIN/1.73 code = 06029) CALC BUN/CREAT (test code = 20 RATIO [...] code = 2219) 23 U/L COMPREHENSIVE METABOLIC [id number] 00:00:00 Test Item Value Reference Range Interpretation Comments GLUCOSE (test code = 2217) 131 MG/DL BUN (test code = 2208) 13 MG/DL CREATININE (test code = 2214) 0.65 MG/DL eGFR AMER. (test code 113 ML/MIN/1.73 = 84694) eGFR NON- AMER. (test 97 ML/MIN/1.73 code = 29752) CALC BUN/CREAT (test code = 20 RATIO [...] (test code = 2219) 23 U/L HEMOGLOBIN [id number] 00:00:00 Test Item Value Reference Range Interpretation Comments HEMOGLOBIN A1c (test code = 61062) 6.8 % HEMOGLOBIN [id number] 00:00:00 Test Item Value Reference Range Interpretation Comments HEMOGLOBIN A1c (test code = 23824) 6.8 % LIPID [id number] 00:00:00 Test Item Value Reference Range Interpretation Comments CHOLESTEROL (test code = 2210) 303 MG/DL TRIGLYCERIDES (test code = 2232) 191 MG/DL HDL CHOLESTEROL (test code = 2220) 61 MG/DL CALC LDL CHOL (test code = 2237) 205 MG/DL RISK RATIO LDL/HDL (test code = 3.36 RATIO 2238) [id number] 00:00:00 Test Item Value Reference Range Interpretation Comments TSH, THIRD GENERATION (test code 0.769 UIU/ML = 2821) [id number] 00:00:00 Test Item Value Reference Range Interpretation Comments TSH, THIRD GENERATION (test code 0.769 UIU/ML = 2821) COMPREHENSIVE METABOLIC [id number] 00:00:00 Test Item Value Reference Range Interpretation Comments GLUCOSE (test code = 2217) 131 MG/DL BUN (test code = 2208) 13 MG/DL CREATININE (test code = 2214) 0.65 MG/DL eGFR AMER. (test code 113 ML/MIN/1.73 = 99727) eGFR NON- AMER. (test 97 ML/MIN/1.73 code = 75975) CALC BUN/CREAT (test code = 20 RATIO [...] (test code = 2219) 23 U/L HEMOGLOBIN [id number] 00:00:00 Test Item Value Reference Range Interpretation Comments HEMOGLOBIN A1c (test code = 82033) 6.8 % HEMOGLOBIN [id number] 00:00:00 Test Item Value Reference Range Interpretation Comments HEMOGLOBIN A1c (test code = 96607) 6.8 % HEMOGLOBIN [id number] 00:00:00 Test Item Value Reference Range Interpretation Comments HEMOGLOBIN A1c (test code = 16765) 6.8 % LIPID [id number] 00:00:00 Test Item Value Reference Range Interpretation Comments CHOLESTEROL (test code = 2210) 303 MG/DL TRIGLYCERIDES (test code = 2232) 191 MG/DL HDL CHOLESTEROL (test code = 2220) 61 MG/DL CALC LDL CHOL (test code = 2237) 205 MG/DL RISK RATIO LDL/HDL (test code = 3.36 RATIO 2238) LIPID [id number] 00:00:00 Test Item Value Reference Range Interpretation Comments CHOLESTEROL (test code = 2210) 303 MG/DL TRIGLYCERIDES (test code = 2232) 191 MG/DL HDL CHOLESTEROL (test code = 2220) 61 MG/DL CALC LDL CHOL (test code = 2237) 205 MG/DL RISK RATIO LDL/HDL (test code = 3.36 RATIO 2238) [id number] 00:00:00 Test Item Value Reference Range Interpretation Comments TSH, THIRD GENERATION (test code 0.769 UIU/ML = 2821) [id number] 00:00:00 Test Item Value Reference Range Interpretation Comments TSH, THIRD GENERATION (test code 0.769 UIU/ML = 2821) [id number] 00:00:00 Test Item Value Reference Range Interpretation Comments TSH, THIRD GENERATION (test code 0.769 UIU/ML = 2821) COMPREHENSIVE METABOLIC [id number] 00:00:00 Test Item Value Reference Range Interpretation Comments GLUCOSE (test code = 2217) 131 MG/DL BUN (test code = 2208) 13 MG/DL CREATININE (test code = 2214) 0.65 MG/DL eGFR AMER. (test code 113 ML/MIN/1.73 = 79656) eGFR NON- AMER. (test 97 ML/MIN/1.73 code = 31893) CALC BUN/CREAT (test code = 20 RATIO [...] code = 2219) 23 U/L COMPREHENSIVE METABOLIC [id number] 00:00:00 Test Item Value Reference Range Interpretation Comments GLUCOSE (test code = 2217) 131 MG/DL BUN (test code = 2208) 13 MG/DL CREATININE (test code = 2214) 0.65 MG/DL eGFR AMER. (test code 113 ML/MIN/1.73 = 12310) eGFR NON- AMER. (test 97 ML/MIN/1.73 code = 66080) CALC BUN/CREAT (test code = 20 RATIO [...] (test code = 2219) 23 U/L HEMOGLOBIN [id number] 00:00:00 Test Item Value Reference Range Interpretation Comments HEMOGLOBIN A1c (test code = 30426) 6.6 % HEMOGLOBIN [id number] 00:00:00 Test Item Value Reference Range Interpretation Comments HEMOGLOBIN A1c (test code = 53929) 6.6 % HEMOGLOBIN [id number] 00:00:00 Test Item Value Reference Range Interpretation Comments HEMOGLOBIN A1c (test code = 16505) 6.6 % LIPID [id number] 00:00:00 Test Item Value Reference Range Interpretation Comments CHOLESTEROL (test code = 2210) 261 MG/DL TRIGLYCERIDES (test code = 2232) 159 MG/DL HDL CHOLESTEROL (test code = 2220) 82 MG/DL CALC LDL CHOL (test code = 2237) 150 MG/DL RISK RATIO LDL/HDL (test code = 1.83 RATIO 2238) LIPID [id number] 00:00:00 Test Item Value Reference Range Interpretation Comments CHOLESTEROL (test code = 2210) 261 MG/DL TRIGLYCERIDES (test code = 2232) 159 MG/DL HDL CHOLESTEROL (test code = 2220) 82 MG/DL CALC LDL CHOL (test code = 2237) 150 MG/DL RISK RATIO LDL/HDL (test code = 1.83 RATIO 2238) COMPREHENSIVE METABOLIC [id number] 00:00:00 Test Item Value Reference Range Interpretation Comments GLUCOSE (test code = 2217) 144 MG/DL BUN (test code = 2208) 15 MG/DL CREATININE (test code = 2214) 0.85 MG/DL eGFR AMER. (test code 87 ML/MIN/1.73 = 80918) eGFR NON- AMER. (test 75 ML/MIN/1.73 code = 31190) CALC BUN/CREAT (test code = 18 RATIO [...] code = 2219) 50 U/L COMPREHENSIVE METABOLIC [id number] 00:00:00 Test Item Value Reference Range Interpretation Comments GLUCOSE (test code = 2217) 144 MG/DL BUN (test code = 2208) 15 MG/DL CREATININE (test code = 2214) 0.85 MG/DL eGFR AMER. (test code 87 ML/MIN/1.73 = 26204) eGFR NON- AMER. (test 75 ML/MIN/1.73 code = 52273) CALC BUN/CREAT (test code = 18 RATIO [...] THYROX. BIND. CAPAC. (test code 1.1 = 70204) T4 (THYROXINE) (test code = 4.3 UG/DL 2819) CORRECTED T4 (FTI) (test code = 3.9 UG/DL 2820) TSH, THIRD GENERATION (test 18.900 UIU/ML code = 2821) THYROID II PROFILE (T3U, T4, T7, TSH)2020-05-23 00:00:00 Test Item Value Reference Range Interpretation Comments T-UPTAKE (test code = 2817) 30.2 % THYROX. BIND. CAPAC. (test code 1.1 = 00747) T4 (THYROXINE) (test code = 4.3 UG/DL 2819) CORRECTED T4 (FTI) (test code = 3.9 UG/DL 2820) TSH, THIRD GENERATION (test 18.900 UIU/ML code = 2821) HEMOGLOBIN [id number] 00:00:00 Test Item Value Reference Range Interpretation Comments HEMOGLOBIN A1c (test code = 72539) 6.6 % HEMOGLOBIN [id number] 00:00:00 Test Item Value Reference Range Interpretation Comments HEMOGLOBIN A1c (test code = 94238) 6.6 % HEMOGLOBIN [id number] 00:00:00 Test Item Value Reference Range Interpretation Comments HEMOGLOBIN A1c (test code = 71642) 6.6 % LIPID [id number] 00:00:00 Test Item Value Reference Range Interpretation Comments CHOLESTEROL (test code = 2210) 261 MG/DL TRIGLYCERIDES (test code = 2232) 159 MG/DL HDL CHOLESTEROL (test code = 2220) 82 MG/DL CALC LDL CHOL (test code = 2237) 150 MG/DL RISK RATIO LDL/HDL (test code = 1.83 RATIO 2238) LIPID [id number] 00:00:00 Test Item Value Reference Range Interpretation Comments CHOLESTEROL (test code = 2210) 261 MG/DL TRIGLYCERIDES (test code = 2232) 159 MG/DL HDL CHOLESTEROL (test code = 2220) 82 MG/DL CALC LDL CHOL (test code = 2237) 150 MG/DL RISK RATIO LDL/HDL (test code = 1.83 RATIO 2238) COMPREHENSIVE METABOLIC [id number] 00:00:00 Test Item Value Reference Range Interpretation Comments GLUCOSE (test code = 2217) 144 MG/DL BUN (test code = 2208) 15 MG/DL CREATININE (test code = 2214) 0.85 MG/DL eGFR AMER. (test code 87 ML/MIN/1.73 = 32349) eGFR NON- AMER. (test 75 ML/MIN/1.73 code = 77740) CALC BUN/CREAT (test code = 18 RATIO [...] code = 2219) 50 U/L COMPREHENSIVE METABOLIC [id number] 00:00:00 Test Item Value Reference Range Interpretation Comments GLUCOSE (test code = 2217) 144 MG/DL BUN (test code = 2208) 15 MG/DL CREATININE (test code = 2214) 0.85 MG/DL eGFR AMER. (test code 87 ML/MIN/1.73 = 83030) eGFR NON- AMER. (test 75 ML/MIN/1.73 code = 40092) CALC BUN/CREAT (test code = 18 RATIO [...] THYROX. BIND. CAPAC. (test code 1.1 = 78500) T4 (THYROXINE) (test code = 4.3 UG/DL 2819) CORRECTED T4 (FTI) (test code = 3.9 UG/DL 2820) TSH, THIRD GENERATION (test 18.900 UIU/ML code = 2821) THYROID II PROFILE (T3U, T4, T7, TSH)2020-05-23 00:00:00 Test Item Value Reference Range Interpretation Comments T-UPTAKE (test code = 2817) 30.2 % THYROX. BIND. CAPAC. (test code 1.1 = 30526) T4 (THYROXINE) (test code = 4.3 UG/DL 2819) CORRECTED T4 (FTI) (test code = 3.9 UG/DL 2820) TSH, THIRD GENERATION (test 18.900 UIU/ML code = 2821) HEMOGLOBIN [id number] 00:00:00 Test Item Value Reference Range Interpretation Comments HEMOGLOBIN A1c (test code = 71807) 6.6 % HEMOGLOBIN [id number] 00:00:00 Test Item Value Reference Range Interpretation Comments HEMOGLOBIN A1c (test code = 55262) 6.6 % LIPID [id number] 00:00:00 Test Item Value Reference Range Interpretation Comments CHOLESTEROL (test code = 2210) 261 MG/DL TRIGLYCERIDES (test code = 2232) 159 MG/DL HDL CHOLESTEROL (test code = 2220) 82 MG/DL CALC LDL CHOL (test code = 2237) 150 MG/DL RISK RATIO LDL/HDL (test code = 1.83 RATIO 2238) COMPREHENSIVE METABOLIC [id number] 00:00:00 Test Item Value Reference Range Interpretation Comments GLUCOSE (test code = 2217) 144 MG/DL BUN (test code = 2208) 15 MG/DL CREATININE (test code = 2214) 0.85 MG/DL eGFR AMER. (test code 87 ML/MIN/1.73 = 88213) eGFR NON- AMER. (test 75 ML/MIN/1.73 code = 96200) CALC BUN/CREAT (test code = 18 RATIO [...] THYROX. BIND. CAPAC. (test code 1.1 = 28616) T4 (THYROXINE) (test code = 4.3 UG/DL 2819) CORRECTED T4 (FTI) (test code = 3.9 UG/DL 2820) TSH, THIRD GENERATION (test 18.900 UIU/ML code = 2821) HEMOGLOBIN [id number] 00:00:00 Test Item Value Reference Range Interpretation Comments HEMOGLOBIN A1c (test code = 29831) 6.6 % HEMOGLOBIN [id number] 00:00:00 Test Item Value Reference Range Interpretation Comments HEMOGLOBIN A1c (test code = 97637) 6.6 % HEMOGLOBIN [id number] 00:00:00 Test Item Value Reference Range Interpretation Comments HEMOGLOBIN A1c (test code = 69659) 6.6 % LIPID [id number] 00:00:00 Test Item Value Reference Range Interpretation Comments CHOLESTEROL (test code = 2210) 261 MG/DL TRIGLYCERIDES (test code = 2232) 159 MG/DL HDL CHOLESTEROL (test code = 2220) 82 MG/DL CALC LDL CHOL (test code = 2237) 150 MG/DL RISK RATIO LDL/HDL (test code = 1.83 RATIO 2238) LIPID [id number] 00:00:00 Test Item Value Reference Range Interpretation Comments CHOLESTEROL (test code = 2210) 261 MG/DL TRIGLYCERIDES (test code = 2232) 159 MG/DL HDL CHOLESTEROL (test code = 2220) 82 MG/DL CALC LDL CHOL (test code = 2237) 150 MG/DL RISK RATIO LDL/HDL (test code = 1.83 RATIO 2238) COMPREHENSIVE METABOLIC [id number] 00:00:00 Test Item Value Reference Range Interpretation Comments GLUCOSE (test code = 2217) 144 MG/DL BUN (test code = 2208) 15 MG/DL CREATININE (test code = 2214) 0.85 MG/DL eGFR AMER. (test code 87 ML/MIN/1.73 = 18633) eGFR NON- AMER. (test 75 ML/MIN/1.73 code = 15220) CALC BUN/CREAT (test code = 18 RATIO [...] code = 2219) 50 U/L COMPREHENSIVE METABOLIC [id number] 00:00:00 Test Item Value Reference Range Interpretation Comments GLUCOSE (test code = 2217) 144 MG/DL BUN (test code = 2208) 15 MG/DL CREATININE (test code = 2214) 0.85 MG/DL eGFR AMER. (test code 87 ML/MIN/1.73 = 90317) eGFR NON- AMER. (test 75 ML/MIN/1.73 code = 13650) CALC BUN/CREAT (test code = 18 RATIO [...] = 220) AST (test code = 221) 27 U/L ALT (test code = 221) 50 U/L THYROID II PROFILE (T3U, T4, T7, TSH)2020-05-23 00:00:00 Test Item Value Reference Range Interpretation Comments T-UPTAKE (test code = 2816) 30.2 % THYROX. BIND. CAPAC. (test code 1.1 = 11241) T4 (THYROXINE) (test code = 4.3 UG/DL 281) CORRECTED T4 (FTI) (test code = 3.9 UG/DL 2820) TSH, THIRD GENERATION (test 18.900 UIU/ML code = 2821) THYROID II PROFILE (T3U, T4, T7, TSH)2020-05-23 00:00:00 Test Item Value Reference Range Interpretation Comments T-UPTAKE (test code = 2816) 30.2 % THYROX. BIND. CAPAC. (test code 1.1 = 98008) T4 (THYROXINE) (test code = 4.3 UG/DL 2819) CORRECTED T4 (FTI) (test code = 3.9 UG/DL 2820) TSH, THIRD GENERATION (test 18.900 UIU/ML code = 2821) HEMOGLOBIN [id number] 00:00:00 Test Item Value Reference Range Interpretation Comments HEMOGLOBIN A1c (test code = 41535) 6.7 % HEMOGLOBIN [id number] 00:00:00 Test Item Value Reference Range Interpretation Comments HEMOGLOBIN A1c (test code = 52124) 6.7 % HEMOGLOBIN [id number] 00:00:00 Test Item Value Reference Range Interpretation Comments HEMOGLOBIN A1c (test code = 05261) 6.7 % LIPID [id number] 00:00:00 Test Item Value Reference Range Interpretation Comments CHOLESTEROL (test code = 2210) 267 MG/DL TRIGLYCERIDES (test code = 2232) 137 MG/DL HDL CHOLESTEROL (test code = 2220) 48 MG/DL CALC LDL CHOL (test code = 2237) 192 MG/DL RISK RATIO LDL/HDL (test code = 4.00 RATIO 2238) LIPID [id number] 00:00:00 Test Item Value Reference Range Interpretation Comments CHOLESTEROL (test code = 2210) 267 MG/DL TRIGLYCERIDES (test code = 2232) 137 MG/DL HDL CHOLESTEROL (test code = 2220) 48 MG/DL CALC LDL CHOL (test code = 2237) 192 MG/DL RISK RATIO LDL/HDL (test code = 4.00 RATIO 2238) COMPREHENSIVE METABOLIC [id number] 00:00:00 Test Item Value Reference Range Interpretation Comments GLUCOSE (test code = 2217) 155 MG/DL BUN (test code = 2208) 14 MG/DL CREATININE (test code = 2214) 0.52 MG/DL eGFR AMER. (test code 122 ML/MIN/1.73 = 19616) eGFR NON- AMER. (test 105 ML/MIN/1.73 code = 95172) CALC BUN/CREAT (test code = 27 RATIO [...] code = 2219) 27 U/L COMPREHENSIVE METABOLIC [id number] 00:00:00 Test Item Value Reference Range Interpretation Comments GLUCOSE (test code = 2217) 155 MG/DL BUN (test code = 2208) 14 MG/DL CREATININE (test code = 2214) 0.52 MG/DL eGFR AMER. (test code 122 ML/MIN/1.73 = 50526) eGFR NON- AMER. (test 105 ML/MIN/1.73 code = 65719) CALC BUN/CREAT (test code = 27 RATIO [...] THYROX. BIND. CAPAC. (test code 1.0 = 90818) T4 (THYROXINE) (test code = 4.7 UG/DL 2819) CORRECTED T4 (FTI) (test code = 4.7 UG/DL 2820) TSH, THIRD GENERATION (test code 0.201 UIU/ML = 2821) THYROID II PROFILE (T3U, T4, T7, TSH)2019 00:00:00 Test Item Value Reference Range Interpretation Comments T-UPTAKE (test code = 2816) 33.1 % THYROX. BIND. CAPAC. (test code 1.0 = 64284) T4 (THYROXINE) (test code = 4.7 UG/DL 2819) CORRECTED T4 (FTI) (test code = 4.7 UG/DL 2820) TSH, THIRD GENERATION (test code 0.201 UIU/ML = 2821) HEMOGLOBIN [id number] 00:00:00 Test Item Value Reference Range Interpretation Comments HEMOGLOBIN A1c (test code = 49311) 6.7 % HEMOGLOBIN [id number] 00:00:00 Test Item Value Reference Range Interpretation Comments HEMOGLOBIN A1c (test code = 97371) 6.7 % HEMOGLOBIN [id number] 00:00:00 Test Item Value Reference Range Interpretation Comments HEMOGLOBIN A1c (test code = 85379) 6.7 % LIPID [id number] 00:00:00 Test Item Value Reference Range Interpretation Comments CHOLESTEROL (test code = 2210) 267 MG/DL TRIGLYCERIDES (test code = 2232) 137 MG/DL HDL CHOLESTEROL (test code = 2220) 48 MG/DL CALC LDL CHOL (test code = 2237) 192 MG/DL RISK RATIO LDL/HDL (test code = 4.00 RATIO 2238) LIPID [id number] 00:00:00 Test Item Value Reference Range Interpretation Comments CHOLESTEROL (test code = 2210) 267 MG/DL TRIGLYCERIDES (test code = 2232) 137 MG/DL HDL CHOLESTEROL (test code = 2220) 48 MG/DL CALC LDL CHOL (test code = 2237) 192 MG/DL RISK RATIO LDL/HDL (test code = 4.00 RATIO 2238) COMPREHENSIVE METABOLIC [id number] 00:00:00 Test Item Value Reference Range Interpretation Comments GLUCOSE (test code = 2217) 155 MG/DL BUN (test code = 2208) 14 MG/DL CREATININE (test code = 2214) 0.52 MG/DL eGFR AMER. (test code 122 ML/MIN/1.73 = 98191) eGFR NON- AMER. (test 105 ML/MIN/1.73 code = 53945) CALC BUN/CREAT (test code = 27 RATIO [...] = <0.2 MG/DL 2207) ALKALINE PHOSPHATASE (test 115 U/L code = 2204) AST (test code = 2218) 17 U/L ALT (test code = 2219) 27 U/L COMPREHENSIVE METABOLIC [id number] 00:00:00 Test Item Value Reference Range Interpretation Comments GLUCOSE (test code = 2217) 155 MG/DL BUN (test code = 2208) 14 MG/DL CREATININE (test code = 2214) 0.52 MG/DL eGFR AMER. (test code 122 ML/MIN/1.73 = 38877) eGFR NON- AMER. (test 105 ML/MIN/1.73 code = 62110) CALC BUN/CREAT (test code = 27 RATIO [...] = <0.2 MG/DL 220) ALKALINE PHOSPHATASE (test 115 U/L code = 2204) AST (test code = 2218) 17 U/L ALT (test code = 2219) 27 U/L THYROID II PROFILE (T3U, T4, T7, TSH)2019 00:00:00 Test Item Value Reference Range Interpretation Comments T-UPTAKE (test code = 2817) 33.1 % THYROX. BIND. CAPAC. (test code 1.0 = 58333) T4 (THYROXINE) (test code = 4.7 UG/DL 2819) CORRECTED T4 (FTI) (test code = 4.7 UG/DL 2820) TSH, THIRD GENERATION (test code 0.201 UIU/ML = 2821) THYROID II PROFILE (T3U, T4, T7, TSH)2019 00:00:00 Test Item Value Reference Range Interpretation Comments T-UPTAKE (test code = 281) 33.1 % THYROX. BIND. CAPAC. (test code 1.0 = 95348) T4 (THYROXINE) (test code = 4.7 UG/DL 2819) CORRECTED T4 (FTI) (test code = 4.7 UG/DL 2820) TSH, THIRD GENERATION (test code 0.201 UIU/ML = 2821) HEMOGLOBIN [id number] 00:00:00 Test Item Value Reference Range Interpretation Comments HEMOGLOBIN A1c (test code = 61593) 6.7 % HEMOGLOBIN [id number] 00:00:00 Test Item Value Reference Range Interpretation Comments HEMOGLOBIN A1c (test code = 23326) 6.7 % LIPID [id number] 00:00:00 Test Item Value Reference Range Interpretation Comments CHOLESTEROL (test code = 2210) 267 MG/DL TRIGLYCERIDES (test code = 2232) 137 MG/DL HDL CHOLESTEROL (test code = 2220) 48 MG/DL CALC LDL CHOL (test code = 2237) 192 MG/DL RISK RATIO LDL/HDL (test code = 4.00 RATIO 2238) COMPREHENSIVE METABOLIC [id number] 00:00:00 Test Item Value Reference Range Interpretation Comments GLUCOSE (test code = 2217) 155 MG/DL BUN (test code = 2208) 14 MG/DL CREATININE (test code = 2214) 0.52 MG/DL eGFR AMER. (test code 122 ML/MIN/1.73 = 81296) eGFR NON- AMER. (test 105 ML/MIN/1.73 code = 62794) CALC BUN/CREAT (test code = 27 RATIO [...] = <0.2 MG/DL 2207) ALKALINE PHOSPHATASE (test 115 U/L code = 2204) AST (test code = 2218) 17 U/L ALT (test code = 2219) 27 U/L THYROID II PROFILE (T3U, T4, T7, TSH)2019 00:00:00 Test Item Value Reference Range Interpretation Comments T-UPTAKE (test code = 2817) 33.1 % THYROX. BIND. CAPAC. (test code 1.0 = 62055) T4 (THYROXINE) (test code = 4.7 UG/DL 2819) CORRECTED T4 (FTI) (test code = 4.7 UG/DL 2820) TSH, THIRD GENERATION (test code 0.201 UIU/ML = 2821) HEMOGLOBIN [id number] 00:00:00 Test Item Value Reference Range Interpretation Comments HEMOGLOBIN A1c (test code = 52313) 6.7 % HEMOGLOBIN [id number] 00:00:00 Test Item Value Reference Range Interpretation Comments HEMOGLOBIN A1c (test code = 90088) 6.7 % HEMOGLOBIN [id number] 00:00:00 Test Item Value Reference Range Interpretation Comments HEMOGLOBIN A1c (test code = 72849) 6.7 % LIPID [id number] 00:00:00 Test Item Value Reference Range Interpretation Comments CHOLESTEROL (test code = 2210) 267 MG/DL TRIGLYCERIDES (test code = 2232) 137 MG/DL HDL CHOLESTEROL (test code = 2220) 48 MG/DL CALC LDL CHOL (test code = 2237) 192 MG/DL RISK RATIO LDL/HDL (test code = 4.00 RATIO 2238) LIPID [id number] 00:00:00 Test Item Value Reference Range Interpretation Comments CHOLESTEROL (test code = 2210) 267 MG/DL TRIGLYCERIDES (test code = 2232) 137 MG/DL HDL CHOLESTEROL (test code = 2220) 48 MG/DL CALC LDL CHOL (test code = 2237) 192 MG/DL RISK RATIO LDL/HDL (test code = 4.00 RATIO 2238) COMPREHENSIVE METABOLIC [id number] 00:00:00 Test Item Value Reference Range Interpretation Comments GLUCOSE (test code = 2217) 155 MG/DL BUN (test code = 2208) 14 MG/DL CREATININE (test code = 2214) 0.52 MG/DL eGFR AMER. (test code 122 ML/MIN/1.73 = 77518) eGFR NON- AMER. (test 105 ML/MIN/1.73 code = 90228) CALC BUN/CREAT (test code = 27 RATIO [...] code = 2219) 27 U/L COMPREHENSIVE METABOLIC [id number] 00:00:00 Test Item Value Reference Range Interpretation Comments GLUCOSE (test code = 2217) 155 MG/DL BUN (test code = 2208) 14 MG/DL CREATININE (test code = 2214) 0.52 MG/DL eGFR AMER. (test code 122 ML/MIN/1.73 = 07979) eGFR NON- AMER. (test 105 ML/MIN/1.73 code = 32768) CALC BUN/CREAT (test code = 27 RATIO [...] THYROX. BIND. CAPAC. (test code 1.0 = 07591) T4 (THYROXINE) (test code = 4.7 UG/DL 2819) CORRECTED T4 (FTI) (test code = 4.7 UG/DL 2820) TSH, THIRD GENERATION (test code 0.201 UIU/ML = 2821) THYROID II PROFILE (T3U, T4, T7, TSH)2019 00:00:00 Test Item Value Reference Range Interpretation Comments T-UPTAKE (test code = 2817) 33.1 % THYROX. BIND. CAPAC. (test code 1.0 = 35150) T4 (THYROXINE) (test code = 4.7 UG/DL 2819) CORRECTED T4 (FTI) (test code = 4.7 UG/DL 2820) TSH, THIRD GENERATION (test code 0.201 UIU/ML = 2821) SARS-CoV-2 (COVID-19) by RT-PCR (HIGH RISK)2019-09-18 00:00:00 Test Item Value Reference Range Interpretation Comments SARS-CoV-2 INTERPRETATION (test NEGATIVE code = 43491) SOURCE (test code = 68393) NOT SPECIFIED SARS-CoV-2 (COVID-19) by RT-PCR (HIGH RISK)2019-09-18 00:00:00 Test Item Value Reference Range Interpretation Comments SARS-CoV-2 INTERPRETATION (test NEGATIVE code = 49859) SOURCE (test code = 81612) NOT SPECIFIED SARS-CoV-2 (COVID-19) by RT-PCR (HIGH RISK)2019-09-18 00:00:00 Test Item Value Reference Range Interpretation Comments SARS-CoV-2 INTERPRETATION (test NEGATIVE code = 86708) SOURCE (test code = 83704) NOT SPECIFIED SARS-CoV-2 (COVID-19) by RT-PCR (HIGH RISK)2019-09-18 00:00:00 Test Item Value Reference Range Interpretation Comments SARS-CoV-2 INTERPRETATION (test NEGATIVE code = 99759) SOURCE (test code = 93895) NOT SPECIFIED SARS-CoV-2 (COVID-19) by RT-PCR (HIGH RISK)2019-09-18 00:00:00 Test Item Value Reference Range Interpretation Comments SARS-CoV-2 INTERPRETATION (test NEGATIVE code = 57538) SOURCE (test code = 84617) NOT SPECIFIED SARS-CoV-2 (COVID-19) by RT-PCR (HIGH RISK)2019-09-18 00:00:00 Test Item Value Reference Range Interpretation Comments SARS-CoV-2 INTERPRETATION (test NEGATIVE code = 98824) SOURCE (test code = 91617) NOT SPECIFIED SARS-CoV-2 (COVID-19) by RT-PCR (HIGH RISK)2019-09-18 00:00:00 Test Item Value Reference Range Interpretation Comments SARS-CoV-2 INTERPRETATION (test NEGATIVE code = 45428) SOURCE (test code = 59205) NOT SPECIFIED [id number] 00:00:00 Test Item Value Reference Range Interpretation Comments TSH, THIRD GENERATION (test code 2.490 UIU/ML = 2821) [id number] 00:00:00 Test Item Value Reference Range Interpretation Comments TSH, THIRD GENERATION (test code 2.490 UIU/ML = 2821) [id number] 00:00:00 Test Item Value Reference Range Interpretation Comments TSH, THIRD GENERATION (test code 2.490 UIU/ML = 2821) HEMOGLOBIN [id number] 00:00:00 Test Item Value Reference Range Interpretation Comments HEMOGLOBIN A1c (test code = 18176) 6.4 % HEMOGLOBIN [id number] 00:00:00 Test Item Value Reference Range Interpretation Comments HEMOGLOBIN A1c (test code = 04085) 6.4 % HEMOGLOBIN [id number] 00:00:00 Test Item Value Reference Range Interpretation Comments HEMOGLOBIN A1c (test code = 72434) 6.4 % COMPREHENSIVE METABOLIC [id number] 00:00:00 Test Item Value Reference Range Interpretation Comments GLUCOSE (test code = 2217) 206 MG/DL BUN (test code = 2208) 23 MG/DL CREATININE (test code = 2214) 0.67 MG/DL eGFR AMER. (test code 112 ML/MIN/1.73 = 06644) eGFR NON- AMER. (test 97 ML/MIN/1.73 code = 50147) CALC BUN/CREAT (test code = 34 RATIO [...] code = 2219) 25 U/L COMPREHENSIVE METABOLIC [id number] 00:00:00 Test Item Value Reference Range Interpretation Comments GLUCOSE (test code = 2217) 206 MG/DL BUN (test code = 2208) 23 MG/DL CREATININE (test code = 2214) 0.67 MG/DL eGFR AMER. (test code 112 ML/MIN/1.73 = 78168) eGFR NON- AMER. (test 97 ML/MIN/1.73 code = 95912) CALC BUN/CREAT (test code = 34 RATIO [...] ALT (test code = 2219) 25 U/L [id number] 00:00:00 Test Item Value Reference Range Interpretation Comments TSH, THIRD GENERATION (test code 2.490 UIU/ML = 2821) [id number] 00:00:00 Test Item Value Reference Range Interpretation Comments TSH, THIRD GENERATION (test code 2.490 UIU/ML = 2821) [id number] 00:00:00 Test Item Value Reference Range Interpretation Comments TSH, THIRD GENERATION (test code 2.490 UIU/ML = 2821) HEMOGLOBIN [id number] 00:00:00 Test Item Value Reference Range Interpretation Comments HEMOGLOBIN A1c (test code = 18932) 6.4 % HEMOGLOBIN [id number] 00:00:00 Test Item Value Reference Range Interpretation Comments HEMOGLOBIN A1c (test code = 18626) 6.4 % HEMOGLOBIN [id number] 00:00:00 Test Item Value Reference Range Interpretation Comments HEMOGLOBIN A1c (test code = 65356) 6.4 % COMPREHENSIVE METABOLIC [id number] 00:00:00 Test Item Value Reference Range Interpretation Comments GLUCOSE (test code = 2217) 206 MG/DL BUN (test code = 2208) 23 MG/DL CREATININE (test code = 2214) 0.67 MG/DL eGFR AMER. (test code 112 ML/MIN/1.73 = 43251) eGFR NON- AMER. (test 97 ML/MIN/1.73 code = 04182) CALC BUN/CREAT (test code = 34 RATIO [...] code = 2219) 25 U/L COMPREHENSIVE METABOLIC [id number] 00:00:00 Test Item Value Reference Range Interpretation Comments GLUCOSE (test code = 2217) 206 MG/DL BUN (test code = 2208) 23 MG/DL CREATININE (test code = 2214) 0.67 MG/DL eGFR AMER. (test code 112 ML/MIN/1.73 = 43691) eGFR NON- AMER. (test 97 ML/MIN/1.73 code = 82441) CALC BUN/CREAT (test code = 34 RATIO [...] ALT (test code = 2219) 25 U/L [id number] 00:00:00 Test Item Value Reference Range Interpretation Comments TSH, THIRD GENERATION (test code 2.490 UIU/ML = 2821) [id number] 00:00:00 Test Item Value Reference Range Interpretation Comments TSH, THIRD GENERATION (test code 2.490 UIU/ML = 2821) HEMOGLOBIN [id number] 00:00:00 Test Item Value Reference Range Interpretation Comments HEMOGLOBIN A1c (test code = 02145) 6.4 % HEMOGLOBIN [id number] 00:00:00 Test Item Value Reference Range Interpretation Comments HEMOGLOBIN A1c (test code = 81057) 6.4 % COMPREHENSIVE METABOLIC [id number] 00:00:00 Test Item Value Reference Range Interpretation Comments GLUCOSE (test code = 2217) 206 MG/DL BUN (test code = 2208) 23 MG/DL CREATININE (test code = 2214) 0.67 MG/DL eGFR AMER. (test code 112 ML/MIN/1.73 = 04839) eGFR NON- AMER. (test 97 ML/MIN/1.73 code = 62970) CALC BUN/CREAT (test code = 34 RATIO [...] ALT (test code = 2219) 25 U/L [id number] 00:00:00 Test Item Value Reference Range Interpretation Comments TSH, THIRD GENERATION (test code 2.490 UIU/ML = 2821) [id number] 00:00:00 Test Item Value Reference Range Interpretation Comments TSH, THIRD GENERATION (test code 2.490 UIU/ML = 2821) [id number] 00:00:00 Test Item Value Reference Range Interpretation Comments TSH, THIRD GENERATION (test code 2.490 UIU/ML = 2821) HEMOGLOBIN [id number] 00:00:00 Test Item Value Reference Range Interpretation Comments HEMOGLOBIN A1c (test code = 69118) 6.4 % HEMOGLOBIN [id number] 00:00:00 Test Item Value Reference Range Interpretation Comments HEMOGLOBIN A1c (test code = 33419) 6.4 % HEMOGLOBIN [id number] 00:00:00 Test Item Value Reference Range Interpretation Comments HEMOGLOBIN A1c (test code = 24304) 6.4 % COMPREHENSIVE METABOLIC [id number] 00:00:00 Test Item Value Reference Range Interpretation Comments GLUCOSE (test code = 2217) 206 MG/DL BUN (test code = 2208) 23 MG/DL CREATININE (test code = 2214) 0.67 MG/DL eGFR AMER. (test code 112 ML/MIN/1.73 = 82417) eGFR NON- AMER. (test 97 ML/MIN/1.73 code = 59920) CALC BUN/CREAT (test code = 34 RATIO [...] code = 2219) 25 U/L COMPREHENSIVE METABOLIC [id number] 00:00:00 Test Item Value Reference Range Interpretation Comments GLUCOSE (test code = 2217) 206 MG/DL BUN (test code = 2208) 23 MG/DL CREATININE (test code = 2214) 0.67 MG/DL eGFR AMER. (test code 112 ML/MIN/1.73 = 65281) eGFR NON- AMER. (test 97 ML/MIN/1.73 code = 57531) CALC BUN/CREAT (test code = 34 RATIO [...] = 2219) 25 U/L VAGINAL PATHOGENS DNA [id number] 00:00:00 Test Item Value Reference Range Interpretation Comments MARK SPECIES (test code = 64559) NEGATIVE G. VAGINALIS (test code = 30309) NEGATIVE T. VAGINALIS (test code = 28006) NEGATIVE VAGINAL PATHOGENS DNA [id number] 00:00:00 Test Item Value Reference Range Interpretation Comments MARK SPECIES (test code = 43197) NEGATIVE G. VAGINALIS (test code = 50546) NEGATIVE T. VAGINALIS (test code = 09535) NEGATIVE VAGINAL PATHOGENS DNA [id number] 00:00:00 Test Item Value Reference Range Interpretation Comments MARK SPECIES (test code = 67988) NEGATIVE G. VAGINALIS (test code = 58313) NEGATIVE T. VAGINALIS (test code = 40751) NEGATIVE VAGINAL PATHOGENS DNA [id number] 00:00:00 Test Item Value Reference Range Interpretation Comments MARK SPECIES (test code = 95881) NEGATIVE G. VAGINALIS (test code = 01107) NEGATIVE T. VAGINALIS (test code = 08059) NEGATIVE VAGINAL PATHOGENS DNA [id number] 00:00:00 Test Item Value Reference Range Interpretation Comments MARK SPECIES (test code = 42394) NEGATIVE G. VAGINALIS (test code = 72071) NEGATIVE T. VAGINALIS (test code = 95072) NEGATIVE VAGINAL PATHOGENS DNA [id number] 00:00:00 Test Item Value Reference Range Interpretation Comments MARK SPECIES (test code = 64636) NEGATIVE G. VAGINALIS (test code = 36218) NEGATIVE T. VAGINALIS (test code = 42758) NEGATIVE VAGINAL PATHOGENS DNA [id number] 00:00:00 Test Item Value Reference Range Interpretation Comments MARK SPECIES (test code = 58488) NEGATIVE G. VAGINALIS (test code = 11290) NEGATIVE T. VAGINALIS (test code = 87831) NEGATIVE HEMOGLOBIN A1c [ADDED]2018-12-01 00:00:00 Test Item Value Reference Range Interpretation Comments HEMOGLOBIN A1c (test code = 05067) 6.7 % HEMOGLOBIN A1c [ADDED]2018-12-01 00:00:00 Test Item Value Reference Range Interpretation Comments HEMOGLOBIN A1c (test code = 31939) 6.7 % HEMOGLOBIN A1c [ADDED]2018-12-01 00:00:00 Test Item Value Reference Range Interpretation Comments HEMOGLOBIN A1c (test code = 11927) 6.7 % COMPREHENSIVE METABOLIC PANEL [ADDED]2018-12-01 00:00:00 Test Item Value Reference Range Interpretation Comments GLUCOSE (test code = 2217) 136 MG/DL BUN (test code = 2208) 15 MG/DL CREATININE (test code = 2214) 0.64 MG/DL eGFR AMER. (test code 115 ML/MIN/1.73 = 80472) eGFR NON- AMER. (test 99 ML/MIN/1.73 code = 98266) CALC BUN/CREAT (test code = 23 RATIO [...] eGFR AMER. (test code 115 ML/MIN/1.73 = 98801) eGFR NON- AMER. (test 99 ML/MIN/1.73 code = 52028) CALC BUN/CREAT (test code = 23 RATIO [...] Interpretation Comments HEMOGLOBIN A1c (test code = 06657) 6.7 % HEMOGLOBIN A1c [ADDED]2018-12-01 00:00:00 Test Item Value Reference Range Interpretation Comments HEMOGLOBIN A1c (test code = 43057) 6.7 % HEMOGLOBIN A1c [ADDED]2018-12-01 00:00:00 Test Item Value Reference Range Interpretation Comments HEMOGLOBIN A1c (test code = 59028) 6.7 % COMPREHENSIVE METABOLIC PANEL [ADDED]2018-12-01 00:00:00 Test Item Value Reference Range Interpretation Comments GLUCOSE (test code = 2217) 136 MG/DL BUN (test code = 2208) 15 MG/DL CREATININE (test code = 2214) 0.64 MG/DL eGFR AMER. (test code 115 ML/MIN/1.73 = 11418) eGFR NON- AMER. (test 99 ML/MIN/1.73 code = 62390) CALC BUN/CREAT (test code = 23 RATIO [...] eGFR AMER. (test code 115 ML/MIN/1.73 = 63215) eGFR NON- AMER. (test 99 ML/MIN/1.73 code = 28166) CALC BUN/CREAT (test code = 23 RATIO [...] Interpretation Comments HEMOGLOBIN A1c (test code = 03155) 6.7 % HEMOGLOBIN A1c [ADDED]2018-12-01 00:00:00 Test Item Value Reference Range Interpretation Comments HEMOGLOBIN A1c (test code = 88007) 6.7 % COMPREHENSIVE METABOLIC PANEL [ADDED]2018-12-01 00:00:00 Test Item Value Reference Range Interpretation Comments GLUCOSE (test code = 2217) 136 MG/DL BUN (test code = 2208) 15 MG/DL CREATININE (test code = 2214) 0.64 MG/DL eGFR AMER. (test code 115 ML/MIN/1.73 = 31681) eGFR NON- AMER. (test 99 ML/MIN/1.73 code = 78473) CALC BUN/CREAT (test code = 23 RATIO [...] Interpretation Comments HEMOGLOBIN A1c (test code = 59750) 6.7 % HEMOGLOBIN A1c [ADDED]2018-12-01 00:00:00 Test Item Value Reference Range Interpretation Comments HEMOGLOBIN A1c (test code = 04406) 6.7 % HEMOGLOBIN A1c [ADDED]2018-12-01 00:00:00 Test Item Value Reference Range Interpretation Comments HEMOGLOBIN A1c (test code = 70037) 6.7 % COMPREHENSIVE METABOLIC PANEL [ADDED]2018-12-01 00:00:00 Test Item Value Reference Range Interpretation Comments GLUCOSE (test code = 2217) 136 MG/DL BUN (test code = 2208) 15 MG/DL CREATININE (test code = 2214) 0.64 MG/DL eGFR AMER. (test code 115 ML/MIN/1.73 = 02341) eGFR NON- AMER. (test 99 ML/MIN/1.73 code = 71723) CALC BUN/CREAT (test code = 23 RATIO [...] eGFR AMER. (test code 115 ML/MIN/1.73 = 23348) eGFR NON- AMER. (test 99 ML/MIN/1.73 code = 03106) CALC BUN/CREAT (test code = 23 RATIO [...] ALKALINE PHOSPHATASE (test 111 U/L code = 220) AST (test code [...] code 1.280 UIU/ML = 2821) CBC W/AUTO [id number] 00:00:00 Test Item Value Reference Range Interpretation [...] code = 1015) 346 K/UL CBC W/AUTO [id number] 00:00:00 Test Item Value Reference Range Interpretation [...] code = 1015) 346 K/UL CBC W/AUTO [id number] 00:00:00 Test Item Value Reference Range Interpretation [...] (test code = 1015) 346 K/UL HEMOGLOBIN [id number] 00:00:00 Test Item Value Reference Range Interpretation Comments HEMOGLOBIN A1c (test code = 48432) 5.9 % HEMOGLOBIN [id number] 00:00:00 Test Item Value Reference Range Interpretation Comments HEMOGLOBIN A1c (test code = 84551) 5.9 % HEMOGLOBIN [id number] 00:00:00 Test Item Value Reference Range Interpretation Comments HEMOGLOBIN A1c (test code = 11188) 5.9 % LIPID [id number] 00:00:00 Test Item Value Reference Range Interpretation Comments CHOLESTEROL (test code = 2210) 318 MG/DL TRIGLYCERIDES (test code = 2232) 263 MG/DL HDL CHOLESTEROL (test code = 2220) 51 MG/DL CALC LDL CHOL (test code = 2237) 214 MG/DL RISK RATIO LDL/HDL (test code = 4.20 RATIO 2238) LIPID [id number] 00:00:00 Test Item Value Reference Range Interpretation Comments CHOLESTEROL (test code = 2210) 318 MG/DL TRIGLYCERIDES (test code = 2232) 263 MG/DL HDL CHOLESTEROL (test code = 2220) 51 MG/DL CALC LDL CHOL (test code = 2237) 214 MG/DL RISK RATIO LDL/HDL (test code = 4.20 RATIO 2238) COMPREHENSIVE METABOLIC [id number] 00:00:00 Test Item Value Reference Range Interpretation Comments GLUCOSE (test code = 2217) 113 MG/DL BUN (test code = 2208) 18 MG/DL CREATININE (test code = 2214) 0.70 MG/DL eGFR AMER. (test code 111 ML/MIN/1.73 = 62268) eGFR NON- AMER. (test 96 ML/MIN/1.73 code = 37962) CALC BUN/CREAT (test code = 26 RATIO [...] code = 2219) 31 U/L COMPREHENSIVE METABOLIC [id number] 00:00:00 Test Item Value Reference Range Interpretation Comments GLUCOSE (test code = 2217) 113 MG/DL BUN (test code = 2208) 18 MG/DL CREATININE (test code = 2214) 0.70 MG/DL eGFR AMER. (test code 111 ML/MIN/1.73 = 37307) eGFR NON- AMER. (test 96 ML/MIN/1.73 code = 31839) CALC BUN/CREAT (test code = 26 RATIO [...] ALT (test code = 2219) 31 U/L [id number] 00:00:00 Test Item Value Reference Range Interpretation Comments TSH, THIRD GENERATION (test code 2.520 UIU/ML = 2821) [id number] 00:00:00 Test Item Value Reference Range Interpretation Comments TSH, THIRD GENERATION (test code 2.520 UIU/ML = 2821) [id number] 00:00:00 Test Item Value Reference Range Interpretation Comments TSH, THIRD GENERATION (test code 2.520 UIU/ML = 2821) CBC W/AUTO [id number] 00:00:00 Test Item Value Reference Range Interpretation [...] code = 1015) 346 K/UL CBC W/AUTO [id number] 00:00:00 Test Item Value Reference Range Interpretation [...] code = 1015) 346 K/UL CBC W/AUTO [id number] 00:00:00 Test Item Value Reference Range Interpretation [...] (test code = 1015) 346 K/UL HEMOGLOBIN [id number] 00:00:00 Test Item Value Reference Range Interpretation Comments HEMOGLOBIN A1c (test code = 57563) 5.9 % HEMOGLOBIN [id number] 00:00:00 Test Item Value Reference Range Interpretation Comments HEMOGLOBIN A1c (test code = 37741) 5.9 % HEMOGLOBIN [id number] 00:00:00 Test Item Value Reference Range Interpretation Comments HEMOGLOBIN A1c (test code = 15879) 5.9 % LIPID [id number] 00:00:00 Test Item Value Reference Range Interpretation Comments CHOLESTEROL (test code = 2210) 318 MG/DL TRIGLYCERIDES (test code = 2232) 263 MG/DL HDL CHOLESTEROL (test code = 2220) 51 MG/DL CALC LDL CHOL (test code = 2237) 214 MG/DL RISK RATIO LDL/HDL (test code = 4.20 RATIO 2238) LIPID [id number] 00:00:00 Test Item Value Reference Range Interpretation Comments CHOLESTEROL (test code = 2210) 318 MG/DL TRIGLYCERIDES (test code = 2232) 263 MG/DL HDL CHOLESTEROL (test code = 2220) 51 MG/DL CALC LDL CHOL (test code = 2237) 214 MG/DL RISK RATIO LDL/HDL (test code = 4.20 RATIO 2238) COMPREHENSIVE METABOLIC [id number] 00:00:00 Test Item Value Reference Range Interpretation Comments GLUCOSE (test code = 2217) 113 MG/DL BUN (test code = 2208) 18 MG/DL CREATININE (test code = 2214) 0.70 MG/DL eGFR AMER. (test code 111 ML/MIN/1.73 = 61821) eGFR NON- AMER. (test 96 ML/MIN/1.73 code = 24354) CALC BUN/CREAT (test code = 26 RATIO [...] code = 2219) 31 U/L COMPREHENSIVE METABOLIC [id number] 00:00:00 Test Item Value Reference Range Interpretation Comments GLUCOSE (test code = 2217) 113 MG/DL BUN (test code = 2208) 18 MG/DL CREATININE (test code = 2214) 0.70 MG/DL eGFR AMER. (test code 111 ML/MIN/1.73 = 32699) eGFR NON- AMER. (test 96 ML/MIN/1.73 code = 88996) CALC BUN/CREAT (test code = 26 RATIO [...] ALT (test code = 2219) 31 U/L [id number] 00:00:00 Test Item Value Reference Range Interpretation Comments TSH, THIRD GENERATION (test code 2.520 UIU/ML = 2821) [id number] 00:00:00 Test Item Value Reference Range Interpretation Comments TSH, THIRD GENERATION (test code 2.520 UIU/ML = 2821) [id number] 00:00:00 Test Item Value Reference Range Interpretation Comments TSH, THIRD GENERATION (test code 2.520 UIU/ML = 2821) CBC W/AUTO [id number] 00:00:00 Test Item Value Reference Range Interpretation [...] code = 1015) 346 K/UL CBC W/AUTO [id number] 00:00:00 Test Item Value Reference Range Interpretation [...] (test code = 1015) 346 K/UL HEMOGLOBIN [id number] 00:00:00 Test Item Value Reference Range Interpretation Comments HEMOGLOBIN A1c (test code = 90711) 5.9 % HEMOGLOBIN [id number] 00:00:00 Test Item Value Reference Range Interpretation Comments HEMOGLOBIN A1c (test code = 82036) 5.9 % LIPID [id number] 00:00:00 Test Item Value Reference Range Interpretation Comments CHOLESTEROL (test code = 2210) 318 MG/DL TRIGLYCERIDES (test code = 2232) 263 MG/DL HDL CHOLESTEROL (test code = 2220) 51 MG/DL CALC LDL CHOL (test code = 2237) 214 MG/DL RISK RATIO LDL/HDL (test code = 4.20 RATIO 2238) COMPREHENSIVE METABOLIC [id number] 00:00:00 Test Item Value Reference Range Interpretation Comments GLUCOSE (test code = 2217) 113 MG/DL BUN (test code = 2208) 18 MG/DL CREATININE (test code = 2214) 0.70 MG/DL eGFR AMER. (test code 111 ML/MIN/1.73 = 92685) eGFR NON- AMER. (test 96 ML/MIN/1.73 code = 96559) CALC BUN/CREAT (test code = 26 RATIO [...] ALT (test code = 2219) 31 U/L [id number] 00:00:00 Test Item Value Reference Range Interpretation Comments TSH, THIRD GENERATION (test code 2.520 UIU/ML = 2821) [id number] 00:00:00 Test Item Value Reference Range Interpretation Comments TSH, THIRD GENERATION (test code 2.520 UIU/ML = 2821) CBC W/AUTO [id number] 00:00:00 Test Item Value Reference Range Interpretation [...] code = 1015) 346 K/UL CBC W/AUTO [id number] 00:00:00 Test Item Value Reference Range Interpretation [...] code = 1015) 346 K/UL CBC W/AUTO [id number] 00:00:00 Test Item Value Reference Range Interpretation [...] (test code = 1015) 346 K/UL HEMOGLOBIN [id number] 00:00:00 Test Item Value Reference Range Interpretation Comments HEMOGLOBIN A1c (test code = 87773) 5.9 % HEMOGLOBIN [id number] 00:00:00 Test Item Value Reference Range Interpretation Comments HEMOGLOBIN A1c (test code = 37635) 5.9 % HEMOGLOBIN [id number] 00:00:00 Test Item Value Reference Range Interpretation Comments HEMOGLOBIN A1c (test code = 41691) 5.9 % LIPID [id number] 00:00:00 Test Item Value Reference Range Interpretation Comments CHOLESTEROL (test code = 2210) 318 MG/DL TRIGLYCERIDES (test code = 2232) 263 MG/DL HDL CHOLESTEROL (test code = 2220) 51 MG/DL CALC LDL CHOL (test code = 2237) 214 MG/DL RISK RATIO LDL/HDL (test code = 4.20 RATIO 2238) LIPID [id number] 00:00:00 Test Item Value Reference Range Interpretation Comments CHOLESTEROL (test code = 2210) 318 MG/DL TRIGLYCERIDES (test code = 2232) 263 MG/DL HDL CHOLESTEROL (test code = 2220) 51 MG/DL CALC LDL CHOL (test code = 2237) 214 MG/DL RISK RATIO LDL/HDL (test code = 4.20 RATIO 2238) COMPREHENSIVE METABOLIC [id number] 00:00:00 Test Item Value Reference Range Interpretation Comments GLUCOSE (test code = 2217) 113 MG/DL BUN (test code = 2208) 18 MG/DL CREATININE (test code = 2214) 0.70 MG/DL eGFR AMER. (test code 111 ML/MIN/1.73 = 07403) eGFR NON- AMER. (test 96 ML/MIN/1.73 code = 70773) CALC BUN/CREAT (test code = 26 RATIO [...] code = 2219) 31 U/L COMPREHENSIVE METABOLIC [id number] 00:00:00 Test Item Value Reference Range Interpretation Comments GLUCOSE (test code = 2217) 113 MG/DL BUN (test code = 2208) 18 MG/DL CREATININE (test code = 2214) 0.70 MG/DL eGFR AMER. (test code 111 ML/MIN/1.73 = 27929) eGFR NON- AMER. (test 96 ML/MIN/1.73 code = 15254) CALC BUN/CREAT (test code = 26 RATIO [...] ALT (test code = 2219) 31 U/L [id number] 00:00:00 Test Item Value Reference Range Interpretation Comments TSH, THIRD GENERATION (test code 2.520 UIU/ML = 2821) [id number] 00:00:00 Test Item Value Reference Range Interpretation Comments TSH, THIRD GENERATION (test code 2.520 UIU/ML = 2821) [id number] 00:00:00 Test Item Value Reference Range Interpretation Comments TSH, THIRD GENERATION (test code 2.520 UIU/ML = 2821) CULTURE, [id number] 00:00:00 Test Item Value Reference Range Interpretation Comments CULTURE, URINE (test SPECIMEN NUMBER: code = 70037) [id number] CULTURE, [id number] 00:00:00 Test Item Value Reference Range Interpretation Comments CULTURE, URINE (test SPECIMEN NUMBER: code = 19157) [id number] CULTURE, [id number] 00:00:00 Test Item Value Reference Range Interpretation Comments CULTURE, URINE (test SPECIMEN NUMBER: code = 92340) [id number] CULTURE, [id number] 00:00:00 Test Item Value Reference Range Interpretation Comments CULTURE, URINE (test SPECIMEN NUMBER: code = 13427) [id number] CULTURE, [id number] 00:00:00 Test Item Value Reference Range Interpretation Comments CULTURE, URINE (test SPECIMEN NUMBER: code = 11847) [id number] CULTURE, [id number] 00:00:00 Test Item Value Reference Range Interpretation Comments CULTURE, URINE (test SPECIMEN NUMBER: code = 74473) [id number] CULTURE, [id number] 00:00:00 Test Item Value Reference Range Interpretation Comments CULTURE, URINE (test SPECIMEN NUMBER: code = 30354) [id number] CULTURE, [id number] 00:00:00 Test Item Value Reference Range Interpretation Comments CULTURE, URINE (test SPECIMEN NUMBER: code = 93426) [id number] CULTURE, [id number] 00:00:00 Test Item Value Reference Range Interpretation Comments CULTURE, URINE (test SPECIMEN NUMBER: code = 62253) [id number] CULTURE, [id number] 00:00:00 Test Item Value Reference Range Interpretation Comments CULTURE, URINE (test SPECIMEN NUMBER: code = 28977) [id number] CULTURE, [id number] 00:00:00 Test Item Value Reference Range Interpretation Comments CULTURE, URINE (test SPECIMEN NUMBER: code = 19999) [id number] CULTURE, [id number] 00:00:00 Test Item Value Reference Range Interpretation Comments CULTURE, URINE (test SPECIMEN NUMBER: code = 33756) [id number] CULTURE, [id number] 00:00:00 Test Item Value Reference Range Interpretation Comments CULTURE, URINE (test SPECIMEN NUMBER: code = 59650) [id number] CULTURE, [id number] 00:00:00 Test Item Value Reference Range Interpretation Comments CULTURE, URINE (test SPECIMEN NUMBER: code = 81405) [id number] BASIC METABOLIC [id number] 00:00:00 Test Item Value Reference Range Interpretation Comments GLUCOSE (test code = 2217) 135 MG/DL BUN (test code = 2208) 25 MG/DL CREATININE (test code = 2214) 0.76 MG/DL eGFR AMER. (test code 101 ML/MIN/1.73 = 34720) eGFR NON- AMER. (test 87 ML/MIN/1.73 code = 35820) SODIUM (test code = 2231) 139 MEQ/L POTASSIUM (test code = 2228) 4.7 MEQ/L CHLORIDE (test code = 2215) 99 MEQ/L CARBON DIOXIDE (test code = 26 MEQ/L 2206) CALCIUM (test code = 2209) 9.4 MG/DL BASIC METABOLIC [id number] 00:00:00 Test Item Value Reference Range Interpretation Comments GLUCOSE (test code = 2217) 135 MG/DL BUN (test code = 2208) 25 MG/DL CREATININE (test code = 2214) 0.76 MG/DL eGFR AMER. (test code 101 ML/MIN/1.73 = 17905) eGFR NON- AMER. (test 87 ML/MIN/1.73 code = 17885) SODIUM (test code = 2231) 139 MEQ/L POTASSIUM (test code = 2228) 4.7 MEQ/L CHLORIDE (test code = 2215) 99 MEQ/L CARBON DIOXIDE (test code = 26 MEQ/L 2206) CALCIUM (test code = 2209) 9.4 MG/DL LIPID [id number] 00:00:00 Test Item Value Reference Range Interpretation Comments CHOLESTEROL (test code = 2210) 262 MG/DL TRIGLYCERIDES (test code = 2232) 300 MG/DL HDL CHOLESTEROL (test code = 2220) 36 MG/DL CALC LDL CHOL (test code = 2237) 166 MG/DL RISK RATIO LDL/HDL (test code = 4.61 RATIO 2238) LIPID [id number] 00:00:00 Test Item Value Reference Range Interpretation Comments CHOLESTEROL (test code = 2210) 262 MG/DL TRIGLYCERIDES (test code = 2232) 300 MG/DL HDL CHOLESTEROL (test code = 2220) 36 MG/DL CALC LDL CHOL (test code = 2237) 166 MG/DL RISK RATIO LDL/HDL (test code = 4.61 RATIO 2238) HEMOGLOBIN [id number] 00:00:00 Test Item Value Reference Range Interpretation Comments HEMOGLOBIN A1c (test code = 79071) 6.2 % HEMOGLOBIN [id number] 00:00:00 Test Item Value Reference Range Interpretation Comments HEMOGLOBIN A1c (test code = 36606) 6.2 % HEMOGLOBIN [id number] 00:00:00 Test Item Value Reference Range Interpretation Comments HEMOGLOBIN A1c (test code = 08079) 6.2 % [id number] 00:00:00 Test Item Value Reference Range Interpretation Comments TSH, THIRD GENERATION (test code 0.988 UIU/ML = 2821) [id number] 00:00:00 Test Item Value Reference Range Interpretation Comments TSH, THIRD GENERATION (test code 0.988 UIU/ML = 2821) [id number] 00:00:00 Test Item Value Reference Range Interpretation Comments TSH, THIRD GENERATION (test code 0.988 UIU/ML = 2821) BASIC METABOLIC [id number] 00:00:00 Test Item Value Reference Range Interpretation Comments GLUCOSE (test code = 2217) 135 MG/DL BUN (test code = 2208) 25 MG/DL CREATININE (test code = 2214) 0.76 MG/DL eGFR AMER. (test code 101 ML/MIN/1.73 = 03578) eGFR NON- AMER. (test 87 ML/MIN/1.73 code = 06205) SODIUM (test code = 2231) 139 MEQ/L POTASSIUM (test code = 2228) 4.7 MEQ/L CHLORIDE (test code = 2215) 99 MEQ/L CARBON DIOXIDE (test code = 26 MEQ/L 2206) CALCIUM (test code = 2209) 9.4 MG/DL BASIC METABOLIC [id number] 00:00:00 Test Item Value Reference Range Interpretation Comments GLUCOSE (test code = 2217) 135 MG/DL BUN (test code = 2208) 25 MG/DL CREATININE (test code = 2214) 0.76 MG/DL eGFR AMER. (test code 101 ML/MIN/1.73 = 76033) eGFR NON- AMER. (test 87 ML/MIN/1.73 code = 84281) SODIUM (test code = 2231) 139 MEQ/L POTASSIUM (test code = 2228) 4.7 MEQ/L CHLORIDE (test code = 2215) 99 MEQ/L CARBON DIOXIDE (test code = 26 MEQ/L 2206) CALCIUM (test code = 2209) 9.4 MG/DL LIPID [id number] 00:00:00 Test Item Value Reference Range Interpretation Comments CHOLESTEROL (test code = 2210) 262 MG/DL TRIGLYCERIDES (test code = 2232) 300 MG/DL HDL CHOLESTEROL (test code = 2220) 36 MG/DL CALC LDL CHOL (test code = 2237) 166 MG/DL RISK RATIO LDL/HDL (test code = 4.61 RATIO 2238) LIPID [id number] 00:00:00 Test Item Value Reference Range Interpretation Comments CHOLESTEROL (test code = 2210) 262 MG/DL TRIGLYCERIDES (test code = 2232) 300 MG/DL HDL CHOLESTEROL (test code = 2220) 36 MG/DL CALC LDL CHOL (test code = 2237) 166 MG/DL RISK RATIO LDL/HDL (test code = 4.61 RATIO 2238) HEMOGLOBIN [id number] 00:00:00 Test Item Value Reference Range Interpretation Comments HEMOGLOBIN A1c (test code = 30949) 6.2 % HEMOGLOBIN [id number] 00:00:00 Test Item Value Reference Range Interpretation Comments HEMOGLOBIN A1c (test code = 10847) 6.2 % HEMOGLOBIN [id number] 00:00:00 Test Item Value Reference Range Interpretation Comments HEMOGLOBIN A1c (test code = 91968) 6.2 % [id number] 00:00:00 Test Item Value Reference Range Interpretation Comments TSH, THIRD GENERATION (test code 0.988 UIU/ML = 2821) [id number] 00:00:00 Test Item Value Reference Range Interpretation Comments TSH, THIRD GENERATION (test code 0.988 UIU/ML = 2821) [id number] 00:00:00 Test Item Value Reference Range Interpretation Comments TSH, THIRD GENERATION (test code 0.988 UIU/ML = 2821) BASIC METABOLIC [id number] 00:00:00 Test Item Value Reference Range Interpretation Comments GLUCOSE (test code = 2217) 135 MG/DL BUN (test code = 2208) 25 MG/DL CREATININE (test code = 2214) 0.76 MG/DL eGFR AMER. (test code 101 ML/MIN/1.73 = 04918) eGFR NON- AMER. (test 87 ML/MIN/1.73 code = 00422) SODIUM (test code = 2231) 139 MEQ/L POTASSIUM (test code = 2228) 4.7 MEQ/L CHLORIDE (test code = 2215) 99 MEQ/L CARBON DIOXIDE (test code = 26 MEQ/L 2206) CALCIUM (test code = 2209) 9.4 MG/DL LIPID [id number] 00:00:00 Test Item Value Reference Range Interpretation Comments CHOLESTEROL (test code = 2210) 262 MG/DL TRIGLYCERIDES (test code = 2232) 300 MG/DL HDL CHOLESTEROL (test code = 2220) 36 MG/DL CALC LDL CHOL (test code = 2237) 166 MG/DL RISK RATIO LDL/HDL (test code = 4.61 RATIO 2238) HEMOGLOBIN [id number] 00:00:00 Test Item Value Reference Range Interpretation Comments HEMOGLOBIN A1c (test code = 64161) 6.2 % HEMOGLOBIN [id number] 00:00:00 Test Item Value Reference Range Interpretation Comments HEMOGLOBIN A1c (test code = 87829) 6.2 % [id number] 00:00:00 Test Item Value Reference Range Interpretation Comments TSH, THIRD GENERATION (test code 0.988 UIU/ML = 2821) [id number] 00:00:00 Test Item Value Reference Range Interpretation Comments TSH, THIRD GENERATION (test code 0.988 UIU/ML = 2821) BASIC METABOLIC [id number] 00:00:00 Test Item Value Reference Range Interpretation Comments GLUCOSE (test code = 2217) 135 MG/DL BUN (test code = 2208) 25 MG/DL CREATININE (test code = 2214) 0.76 MG/DL eGFR AMER. (test code 101 ML/MIN/1.73 = 37224) eGFR NON- AMER. (test 87 ML/MIN/1.73 code = 26347) SODIUM (test code = 2231) 139 MEQ/L POTASSIUM (test code = 2228) 4.7 MEQ/L CHLORIDE (test code = 2215) 99 MEQ/L CARBON DIOXIDE (test code = 26 MEQ/L 2206) CALCIUM (test code = 2209) 9.4 MG/DL BASIC METABOLIC [id number] 00:00:00 Test Item Value Reference Range Interpretation Comments GLUCOSE (test code = 2217) 135 MG/DL BUN (test code = 2208) 25 MG/DL CREATININE (test code = 2214) 0.76 MG/DL eGFR AMER. (test code 101 ML/MIN/1.73 = 65027) eGFR NON- AMER. (test 87 ML/MIN/1.73 code = 77589) SODIUM (test code = 2231) 139 MEQ/L POTASSIUM (test code = 2228) 4.7 MEQ/L CHLORIDE (test code = 2215) 99 MEQ/L CARBON DIOXIDE (test code = 26 MEQ/L 2206) CALCIUM (test code = 2209) 9.4 MG/DL LIPID [id number] 00:00:00 Test Item Value Reference Range Interpretation Comments CHOLESTEROL (test code = 2210) 262 MG/DL TRIGLYCERIDES (test code = 2232) 300 MG/DL HDL CHOLESTEROL (test code = 2220) 36 MG/DL CALC LDL CHOL (test code = 2237) 166 MG/DL RISK RATIO LDL/HDL (test code = 4.61 RATIO 2238) LIPID [id number] 00:00:00 Test Item Value Reference Range Interpretation Comments CHOLESTEROL (test code = 2210) 262 MG/DL TRIGLYCERIDES (test code = 2232) 300 MG/DL HDL CHOLESTEROL (test code = 2220) 36 MG/DL CALC LDL CHOL (test code = 2237) 166 MG/DL RISK RATIO LDL/HDL (test code = 4.61 RATIO 2238) HEMOGLOBIN [id number] 00:00:00 Test Item Value Reference Range Interpretation Comments HEMOGLOBIN A1c (test code = 28410) 6.2 % HEMOGLOBIN [id number] 00:00:00 Test Item Value Reference Range Interpretation Comments HEMOGLOBIN A1c (test code = 45868) 6.2 % HEMOGLOBIN [id number] 00:00:00 Test Item Value Reference Range Interpretation Comments HEMOGLOBIN A1c (test code = 81472) 6.2 % [id number] 00:00:00 Test Item Value Reference Range Interpretation Comments TSH, THIRD GENERATION (test code 0.988 UIU/ML = 2821) [id number] 00:00:00 Test Item Value Reference Range Interpretation Comments TSH, THIRD GENERATION (test code 0.988 UIU/ML = 2821) [id number] 00:00:00 Test Item Value Reference Range Interpretation Comments TSH, THIRD GENERATION (test code 0.988 UIU/ML = 2821) COMPREHENSIVE METABOLIC [id number] 00:00:00 Test Item Value Reference Range Interpretation Comments GLUCOSE (test code = 2217) 109 MG/DL BUN (test code = 2208) 25 MG/DL CREATININE (test code = 2214) 0.78 MG/DL eGFR AMER. (test code 98 ML/MIN/1.73 = 34322) eGFR NON- AMER. (test 84 ML/MIN/1.73 code = 94312) CALC BUN/CREAT (test code = 32 RATIO [...] code = 2219) 25 U/L COMPREHENSIVE METABOLIC [id number] 00:00:00 Test Item Value Reference Range Interpretation Comments GLUCOSE (test code = 2217) 109 MG/DL BUN (test code = 2208) 25 MG/DL CREATININE (test code = 2214) 0.78 MG/DL eGFR AMER. (test code 98 ML/MIN/1.73 = 62499) eGFR NON- AMER. (test 84 ML/MIN/1.73 code = 99162) CALC BUN/CREAT (test code = 32 RATIO [...] (test code = 2219) 25 U/L LIPID [id number] 00:00:00 Test Item Value Reference Range Interpretation Comments CHOLESTEROL (test code = 2210) 295 MG/DL TRIGLYCERIDES (test code = 2232) 218 MG/DL HDL CHOLESTEROL (test code = 2220) 46 MG/DL CALC LDL CHOL (test code = 2237) 205 MG/DL RISK RATIO LDL/HDL (test code = 4.47 RATIO 2238) LIPID [id number] 00:00:00 Test Item Value Reference Range Interpretation Comments CHOLESTEROL (test code = 2210) 295 MG/DL TRIGLYCERIDES (test code = 2232) 218 MG/DL HDL CHOLESTEROL (test code = 2220) 46 MG/DL CALC LDL CHOL (test code = 2237) 205 MG/DL RISK RATIO LDL/HDL (test code = 4.47 RATIO 2238) HEMOGLOBIN [id number] 00:00:00 Test Item Value Reference Range Interpretation Comments HEMOGLOBIN A1c (test code = 41433) 7.0 % HEMOGLOBIN [id number] 00:00:00 Test Item Value Reference Range Interpretation Comments HEMOGLOBIN A1c (test code = 66349) 7.0 % HEMOGLOBIN [id number] 00:00:00 Test Item Value Reference Range Interpretation Comments HEMOGLOBIN A1c (test code = 90949) 7.0 % [id number] 00:00:00 Test Item Value Reference Range Interpretation Comments TSH, THIRD GENERATION (test code 0.565 UIU/ML = 2821) [id number] 00:00:00 Test Item Value Reference Range Interpretation Comments TSH, THIRD GENERATION (test code 0.565 UIU/ML = 2821) [id number] 00:00:00 Test Item Value Reference Range Interpretation Comments TSH, THIRD GENERATION (test code 0.565 UIU/ML = 2821) COMPREHENSIVE METABOLIC [id number] 00:00:00 Test Item Value Reference Range Interpretation Comments GLUCOSE (test code = 2217) 109 MG/DL BUN (test code = 2208) 25 MG/DL CREATININE (test code = 2214) 0.78 MG/DL eGFR AMER. (test code 98 ML/MIN/1.73 = 51422) eGFR NON- AMER. (test 84 ML/MIN/1.73 code = 09112) CALC BUN/CREAT (test code = 32 RATIO [...] code = 2219) 25 U/L COMPREHENSIVE METABOLIC [id number] 00:00:00 Test Item Value Reference Range Interpretation Comments GLUCOSE (test code = 2217) 109 MG/DL BUN (test code = 2208) 25 MG/DL CREATININE (test code = 2214) 0.78 MG/DL eGFR AMER. (test code 98 ML/MIN/1.73 = 83378) eGFR NON- AMER. (test 84 ML/MIN/1.73 code = 28002) CALC BUN/CREAT (test code = 32 RATIO [...] (test code = 2219) 25 U/L LIPID [id number] 00:00:00 Test Item Value Reference Range Interpretation Comments CHOLESTEROL (test code = 2210) 295 MG/DL TRIGLYCERIDES (test code = 2232) 218 MG/DL HDL CHOLESTEROL (test code = 2220) 46 MG/DL CALC LDL CHOL (test code = 2237) 205 MG/DL RISK RATIO LDL/HDL (test code = 4.47 RATIO 2238) LIPID [id number] 00:00:00 Test Item Value Reference Range Interpretation Comments CHOLESTEROL (test code = 2210) 295 MG/DL TRIGLYCERIDES (test code = 2232) 218 MG/DL HDL CHOLESTEROL (test code = 2220) 46 MG/DL CALC LDL CHOL (test code = 2237) 205 MG/DL RISK RATIO LDL/HDL (test code = 4.47 RATIO 2238) HEMOGLOBIN [id number] 00:00:00 Test Item Value Reference Range Interpretation Comments HEMOGLOBIN A1c (test code = 57977) 7.0 % HEMOGLOBIN [id number] 00:00:00 Test Item Value Reference Range Interpretation Comments HEMOGLOBIN A1c (test code = 18904) 7.0 % HEMOGLOBIN [id number] 00:00:00 Test Item Value Reference Range Interpretation Comments HEMOGLOBIN A1c (test code = 54083) 7.0 % [id number] 00:00:00 Test Item Value Reference Range Interpretation Comments TSH, THIRD GENERATION (test code 0.565 UIU/ML = 2821) [id number] 00:00:00 Test Item Value Reference Range Interpretation Comments TSH, THIRD GENERATION (test code 0.565 UIU/ML = 2821) [id number] 00:00:00 Test Item Value Reference Range Interpretation Comments TSH, THIRD GENERATION (test code 0.565 UIU/ML = 2821) COMPREHENSIVE METABOLIC [id number] 00:00:00 Test Item Value Reference Range Interpretation Comments GLUCOSE (test code = 2217) 109 MG/DL BUN (test code = 2208) 25 MG/DL CREATININE (test code = 2214) 0.78 MG/DL eGFR AMER. (test code 98 ML/MIN/1.73 = 51148) eGFR NON- AMER. (test 84 ML/MIN/1.73 code = 56062) CALC BUN/CREAT (test code = 32 RATIO [...] (test code = 2219) 25 U/L LIPID [id number] 00:00:00 Test Item Value Reference Range Interpretation Comments CHOLESTEROL (test code = 2210) 295 MG/DL TRIGLYCERIDES (test code = 2232) 218 MG/DL HDL CHOLESTEROL (test code = 2220) 46 MG/DL CALC LDL CHOL (test code = 2237) 205 MG/DL RISK RATIO LDL/HDL (test code = 4.47 RATIO 2238) HEMOGLOBIN [id number] 00:00:00 Test Item Value Reference Range Interpretation Comments HEMOGLOBIN A1c (test code = 20345) 7.0 % HEMOGLOBIN [id number] 00:00:00 Test Item Value Reference Range Interpretation Comments HEMOGLOBIN A1c (test code = 00390) 7.0 % [id number] 00:00:00 Test Item Value Reference Range Interpretation Comments TSH, THIRD GENERATION (test code 0.565 UIU/ML = 2821) [id number] 00:00:00 Test Item Value Reference Range Interpretation Comments TSH, THIRD GENERATION (test code 0.565 UIU/ML = 2821) COMPREHENSIVE METABOLIC [id number] 00:00:00 Test Item Value Reference Range Interpretation Comments GLUCOSE (test code = 2217) 109 MG/DL BUN (test code = 2208) 25 MG/DL CREATININE (test code = 2214) 0.78 MG/DL eGFR AMER. (test code 98 ML/MIN/1.73 = 69291) eGFR NON- AMER. (test 84 ML/MIN/1.73 code = 95139) CALC BUN/CREAT (test code = 32 RATIO [...] code = 2219) 25 U/L COMPREHENSIVE METABOLIC [id number] 00:00:00 Test Item Value Reference Range Interpretation Comments GLUCOSE (test code = 2217) 109 MG/DL BUN (test code = 2208) 25 MG/DL CREATININE (test code = 2214) 0.78 MG/DL eGFR AMER. (test code 98 ML/MIN/1.73 = 71195) eGFR NON- AMER. (test 84 ML/MIN/1.73 code = 08146) CALC BUN/CREAT (test code = 32 RATIO [...] (test code = 2219) 25 U/L LIPID [id number] 00:00:00 Test Item Value Reference Range Interpretation Comments CHOLESTEROL (test code = 2210) 295 MG/DL TRIGLYCERIDES (test code = 2232) 218 MG/DL HDL CHOLESTEROL (test code = 2220) 46 MG/DL CALC LDL CHOL (test code = 2237) 205 MG/DL RISK RATIO LDL/HDL (test code = 4.47 RATIO 2238) LIPID [id number] 00:00:00 Test Item Value Reference Range Interpretation Comments CHOLESTEROL (test code = 2210) 295 MG/DL TRIGLYCERIDES (test code = 2232) 218 MG/DL HDL CHOLESTEROL (test code = 2220) 46 MG/DL CALC LDL CHOL (test code = 2237) 205 MG/DL RISK RATIO LDL/HDL (test code = 4.47 RATIO 2238) HEMOGLOBIN [id number] 00:00:00 Test Item Value Reference Range Interpretation Comments HEMOGLOBIN A1c (test code = 90911) 7.0 % HEMOGLOBIN [id number] 00:00:00 Test Item Value Reference Range Interpretation Comments HEMOGLOBIN A1c (test code = 70627) 7.0 % HEMOGLOBIN [id number] 00:00:00 Test Item Value Reference Range Interpretation Comments HEMOGLOBIN A1c (test code = 74625) 7.0 % [id number] 00:00:00 Test Item Value Reference Range Interpretation Comments TSH, THIRD GENERATION (test code 0.565 UIU/ML = 2821) [id number] 00:00:00 Test Item Value Reference Range Interpretation Comments TSH, THIRD GENERATION (test code 0.565 UIU/ML = 2821) [id number] 00:00:00 Test Item Value Reference Range Interpretation Comments TSH, THIRD GENERATION (test code 0.565 UIU/ML = 2821) [id number] 00:00:00 Test Item Value Reference Range Interpretation Comments TSH, THIRD GENERATION (test code 0.379 UIU/ML = 2821) [id number] 00:00:00 Test Item Value Reference Range Interpretation Comments TSH, THIRD GENERATION (test code 0.379 UIU/ML = 2821) [id number] 00:00:00 Test Item Value Reference Range Interpretation Comments TSH, THIRD GENERATION (test code 0.379 UIU/ML = 2821) [id number] 00:00:00 Test Item Value Reference Range Interpretation Comments TSH, THIRD GENERATION (test code 0.379 UIU/ML = 2821) [id number] 00:00:00 Test Item Value Reference Range Interpretation Comments TSH, THIRD GENERATION (test code 0.379 UIU/ML = 2821) [id number] 00:00:00 Test Item Value Reference Range Interpretation Comments TSH, THIRD GENERATION (test code 0.379 UIU/ML = 2821) [id number] 00:00:00 Test Item Value Reference Range Interpretation Comments TSH, THIRD GENERATION (test code 0.379 UIU/ML = 2821) [id number] 00:00:00 Test Item Value Reference Range Interpretation Comments TSH, THIRD GENERATION (test code 0.379 UIU/ML = 2821) [id number] 00:00:00 Test Item Value Reference Range Interpretation Comments TSH, THIRD GENERATION (test code 0.379 UIU/ML = 2821) [id number] 00:00:00 Test Item Value Reference Range Interpretation Comments TSH, THIRD GENERATION (test code 0.379 UIU/ML = 2821) [id number] 00:00:00 Test Item Value Reference Range Interpretation Comments TSH, THIRD GENERATION (test code 0.379 UIU/ML = 2821) CULTURE, [id number] 00:00:00 Test Item Value Reference Range Interpretation Comments CULTURE, URINE (test SPECIMEN NUMBER: code = 88850) [id number] CULTURE, [id number] 00:00:00 Test Item Value Reference Range Interpretation Comments CULTURE, URINE (test SPECIMEN NUMBER: code = 81128) [id number] CULTURE, [id number] 00:00:00 Test Item Value Reference Range Interpretation Comments CULTURE, URINE (test SPECIMEN NUMBER: code = 69778) [id number] CULTURE, [id number] 00:00:00 Test Item Value Reference Range Interpretation Comments CULTURE, URINE (test SPECIMEN NUMBER: code = 54284) [id number] CULTURE, [id number] 00:00:00 Test Item Value Reference Range Interpretation Comments CULTURE, URINE (test SPECIMEN NUMBER: code = 36705) [id number] CULTURE, [id number] 00:00:00 Test Item Value Reference Range Interpretation Comments CULTURE, URINE (test SPECIMEN NUMBER: code = 87556) [id number] CULTURE, [id number] 00:00:00 Test Item Value Reference Range Interpretation Comments CULTURE, URINE (test SPECIMEN NUMBER: code = 84432) [id number] COMPREHENSIVE METABOLIC [id number] 00:00:00 Test Item Value Reference Range Interpretation Comments GLUCOSE (test code = 2217) 128 MG/DL BUN (test code = 2208) 26 MG/DL CREATININE (test code = 2214) 0.92 MG/DL eGFR AMER. (test code 81 ML/MIN/1.73 = 95978) eGFR NON- AMER. (test 70 ML/MIN/1.73 code = 56321) CALC BUN/CREAT (test code = 28 RATIO [...] code = 2219) 29 U/L COMPREHENSIVE METABOLIC [id number] 00:00:00 Test Item Value Reference Range Interpretation Comments GLUCOSE (test code = 2217) 128 MG/DL BUN (test code = 2208) 26 MG/DL CREATININE (test code = 2214) 0.92 MG/DL eGFR AMER. (test code 81 ML/MIN/1.73 = 78561) eGFR NON- AMER. (test 70 ML/MIN/1.73 code = 28829) CALC BUN/CREAT (test code = 28 RATIO [...] code = 2219) 29 U/L ACUTE HEPATITIS [id number] 00:00:00 Test Item Value Reference Range Interpretation Comments HEPATITIS A IgM (test code = NON-REACTIVE 44393) HEPATITIS B CORE IgM (test code NON-REACTIVE = 4644) HEPATITIS B SURF AG (test code = NON-REACTIVE 2739) HEPATITIS C ANTIBODY (test code NON-REACTIVE = 4675) INTERPRETATION HEPATITIS A: (NOTE) (test code = 2552) INTERPRETATION HEPATITIS B: (NOTE) (test code = 65628) INTERPRETATION HEPATITIS C: (NOTE) (test code = 54894) ACUTE HEPATITIS [id number] 00:00:00 Test Item Value Reference Range Interpretation Comments HEPATITIS A IgM (test code = NON-REACTIVE 20303) HEPATITIS B CORE IgM (test code NON-REACTIVE = 4644) HEPATITIS B SURF AG (test code = NON-REACTIVE 2739) HEPATITIS C ANTIBODY (test code NON-REACTIVE = 4675) INTERPRETATION HEPATITIS A: (NOTE) (test code = 2552) INTERPRETATION HEPATITIS B: (NOTE) (test code = 36559) INTERPRETATION HEPATITIS C: (NOTE) (test code = 72575) [id number] 00:00:00 Test Item Value Reference Range Interpretation Comments AMYLASE (test code = 2205) 32 U/L [id number] 00:00:00 Test Item Value Reference Range Interpretation Comments AMYLASE (test code = 2205) 32 U/L [id number] 00:00:00 Test Item Value Reference Range Interpretation Comments LIPASE (test code = 2058) 22 U/L [id number] 00:00:00 Test Item Value Reference Range Interpretation Comments LIPASE (test code = 205) 22 U/L [id number] 00:00:00 Test Item Value Reference Range Interpretation Comments LIPASE (test code = 2058) 22 U/L COMPREHENSIVE METABOLIC [id number] 00:00:00 Test Item Value Reference Range Interpretation Comments GLUCOSE (test code = 2217) 128 MG/DL BUN (test code = 2208) 26 MG/DL CREATININE (test code = 2214) 0.92 MG/DL eGFR AMER. (test code 81 ML/MIN/1.73 = 67272) eGFR NON- AMER. (test 70 ML/MIN/1.73 code = 79226) CALC BUN/CREAT (test code = 28 RATIO [...] code = 2219) 29 U/L COMPREHENSIVE METABOLIC [id number] 00:00:00 Test Item Value Reference Range Interpretation Comments GLUCOSE (test code = 2217) 128 MG/DL BUN (test code = 2208) 26 MG/DL CREATININE (test code = 2214) 0.92 MG/DL eGFR AMER. (test code 81 ML/MIN/1.73 = 86084) eGFR NON- AMER. (test 70 ML/MIN/1.73 code = 63210) CALC BUN/CREAT (test code = 28 RATIO [...] code = 2219) 29 U/L ACUTE HEPATITIS [id number] 00:00:00 Test Item Value Reference Range Interpretation Comments HEPATITIS A IgM (test code = NON-REACTIVE 18999) HEPATITIS B CORE IgM (test code NON-REACTIVE = 4644) HEPATITIS B SURF AG (test code = NON-REACTIVE 2739) HEPATITIS C ANTIBODY (test code NON-REACTIVE = 4675) INTERPRETATION HEPATITIS A: (NOTE) (test code = 2552) INTERPRETATION HEPATITIS B: (NOTE) (test code = 00318) INTERPRETATION HEPATITIS C: (NOTE) (test code = 11349) ACUTE HEPATITIS [id number] 00:00:00 Test Item Value Reference Range Interpretation Comments HEPATITIS A IgM (test code = NON-REACTIVE 76876) HEPATITIS B CORE IgM (test code NON-REACTIVE = 4644) HEPATITIS B SURF AG (test code = NON-REACTIVE 2739) HEPATITIS C ANTIBODY (test code NON-REACTIVE = 4675) INTERPRETATION HEPATITIS A: (NOTE) (test code = 2552) INTERPRETATION HEPATITIS B: (NOTE) (test code = 66375) INTERPRETATION HEPATITIS C: (NOTE) (test code = 42578) [id number] 00:00:00 Test Item Value Reference Range Interpretation Comments AMYLASE (test code = 2205) 32 U/L [id number] 00:00:00 Test Item Value Reference Range Interpretation Comments AMYLASE (test code = 2205) 32 U/L [id number] 00:00:00 Test Item Value Reference Range Interpretation Comments LIPASE (test code = 2058) 22 U/L [id number] 00:00:00 Test Item Value Reference Range Interpretation Comments LIPASE (test code = 2058) 22 U/L [id number] 00:00:00 Test Item Value Reference Range Interpretation Comments LIPASE (test code = 2058) 22 U/L COMPREHENSIVE METABOLIC [id number] 00:00:00 Test Item Value Reference Range Interpretation Comments GLUCOSE (test code = 2217) 128 MG/DL BUN (test code = 2208) 26 MG/DL CREATININE (test code = 2214) 0.92 MG/DL eGFR AMER. (test code 81 ML/MIN/1.73 = 01701) eGFR NON- AMER. (test 70 ML/MIN/1.73 code = 25265) CALC BUN/CREAT (test code = 28 RATIO [...] code = 2219) 29 U/L ACUTE HEPATITIS [id number] 00:00:00 Test Item Value Reference Range Interpretation Comments HEPATITIS A IgM (test code = NON-REACTIVE 71715) HEPATITIS B CORE IgM (test code NON-REACTIVE = 2205) HEPATITIS B SURF AG (test code = NON-REACTIVE 0765) HEPATITIS C ANTIBODY (test code NON-REACTIVE = 4675) INTERPRETATION HEPATITIS A: (NOTE) (test code = 2552) INTERPRETATION HEPATITIS B: (NOTE) (test code = 78869) INTERPRETATION HEPATITIS C: (NOTE) (test code = 65478) [id number] 00:00:00 Test Item Value Reference Range Interpretation Comments AMYLASE (test code = 2205) 32 U/L [id number] 00:00:00 Test Item Value Reference Range Interpretation Comments LIPASE (test code = 2058) 22 U/L [id number] 00:00:00 Test Item Value Reference Range Interpretation Comments LIPASE (test code = 2058) 22 U/L COMPREHENSIVE METABOLIC [id number] 00:00:00 Test Item Value Reference Range Interpretation Comments GLUCOSE (test code = 2217) 128 MG/DL BUN (test code = 2208) 26 MG/DL CREATININE (test code = 2214) 0.92 MG/DL eGFR AMER. (test code 81 ML/MIN/1.73 = 39463) eGFR NON- AMER. (test 70 ML/MIN/1.73 code = 76339) CALC BUN/CREAT (test code = 28 RATIO [...] code = 2219) 29 U/L COMPREHENSIVE METABOLIC [id number] 00:00:00 Test Item Value Reference Range Interpretation Comments GLUCOSE (test code = 2217) 128 MG/DL BUN (test code = 2208) 26 MG/DL CREATININE (test code = 2214) 0.92 MG/DL eGFR AMER. (test code 81 ML/MIN/1.73 = 11519) eGFR NON- AMER. (test 70 ML/MIN/1.73 code = 99142) CALC BUN/CREAT (test code = 28 RATIO [...] code = 2219) 29 U/L ACUTE HEPATITIS [id number] 00:00:00 Test Item Value Reference Range Interpretation Comments HEPATITIS A IgM (test code = NON-REACTIVE 76508) HEPATITIS B CORE IgM (test code NON-REACTIVE = 4644) HEPATITIS B SURF AG (test code = NON-REACTIVE 2739) HEPATITIS C ANTIBODY (test code NON-REACTIVE = 4675) INTERPRETATION HEPATITIS A: (NOTE) (test code = 2552) INTERPRETATION HEPATITIS B: (NOTE) (test code = 65860) INTERPRETATION HEPATITIS C: (NOTE) (test code = 68745) ACUTE HEPATITIS [id number] 00:00:00 Test Item Value Reference Range Interpretation Comments HEPATITIS A IgM (test code = NON-REACTIVE 41506) HEPATITIS B CORE IgM (test code NON-REACTIVE = 4644) HEPATITIS B SURF AG (test code = NON-REACTIVE 2739) HEPATITIS C ANTIBODY (test code NON-REACTIVE = 4675) INTERPRETATION HEPATITIS A: (NOTE) (test code = 2552) INTERPRETATION HEPATITIS B: (NOTE) (test code = 48667) INTERPRETATION HEPATITIS C: (NOTE) (test code = 51170) [id number] 00:00:00 Test Item Value Reference Range Interpretation Comments AMYLASE (test code = 2205) 32 U/L [id number] 00:00:00 Test Item Value Reference Range Interpretation Comments AMYLASE (test code = 2205) 32 U/L [id number] 00:00:00 Test Item Value Reference Range Interpretation Comments LIPASE (test code = 2058) 22 U/L [id number] 00:00:00 Test Item Value Reference Range Interpretation Comments LIPASE (test code = 2058) 22 U/L [id number] 00:00:00 Test Item Value Reference Range Interpretation Comments LIPASE (test code = 2058) 22 U/L [id number] 00:00:00 Test Item Value Reference Range Interpretation Comments TSH, THIRD GENERATION (test code 4.890 UIU/ML = 2821) [id number] 00:00:00 Test Item Value Reference Range Interpretation Comments TSH, THIRD GENERATION (test code 4.890 UIU/ML = 2821) [id number] 00:00:00 Test Item Value Reference Range Interpretation Comments TSH, THIRD GENERATION (test code 4.890 UIU/ML = 2821) COMPREHENSIVE METABOLIC [id number] 00:00:00 Test Item Value Reference Range Interpretation Comments GLUCOSE (test code = 2217) 121 MG/DL BUN (test code = 2208) 40 MG/DL CREATININE (test code = 2214) 1.48 MG/DL eGFR AMER. (test code 45 ML/MIN/1.73 = 30558) eGFR NON- AMER. (test 39 ML/MIN/1.73 code = 32555) CALC BUN/CREAT (test code = 27 RATIO [...] code = 2219) 20 U/L COMPREHENSIVE METABOLIC [id number] 00:00:00 Test Item Value Reference Range Interpretation Comments GLUCOSE (test code = 2217) 121 MG/DL BUN (test code = 2208) 40 MG/DL CREATININE (test code = 2214) 1.48 MG/DL eGFR AMER. (test code 45 ML/MIN/1.73 = 45128) eGFR NON- AMER. (test 39 ML/MIN/1.73 code = 20792) CALC BUN/CREAT (test code = 27 RATIO [...] ALT (test code = 2219) 20 U/L [id number] 00:00:00 Test Item Value Reference Range Interpretation Comments TSH, THIRD GENERATION (test code 4.890 UIU/ML = 2821) [id number] 00:00:00 Test Item Value Reference Range Interpretation Comments TSH, THIRD GENERATION (test code 4.890 UIU/ML = 2821) [id number] 00:00:00 Test Item Value Reference Range Interpretation Comments TSH, THIRD GENERATION (test code 4.890 UIU/ML = 2821) COMPREHENSIVE METABOLIC [id number] 00:00:00 Test Item Value Reference Range Interpretation Comments GLUCOSE (test code = 2217) 121 MG/DL BUN (test code = 2208) 40 MG/DL CREATININE (test code = 2214) 1.48 MG/DL eGFR AMER. (test code 45 ML/MIN/1.73 = 80751) eGFR NON- AMER. (test 39 ML/MIN/1.73 code = 82945) CALC BUN/CREAT (test code = 27 RATIO [...] code = 2219) 20 U/L COMPREHENSIVE METABOLIC [id number] 00:00:00 Test Item Value Reference Range Interpretation Comments GLUCOSE (test code = 2217) 121 MG/DL BUN (test code = 2208) 40 MG/DL CREATININE (test code = 2214) 1.48 MG/DL eGFR AMER. (test code 45 ML/MIN/1.73 = 55869) eGFR NON- AMER. (test 39 ML/MIN/1.73 code = 05639) CALC BUN/CREAT (test code = 27 RATIO [...] ALT (test code = 2219) 20 U/L [id number] 00:00:00 Test Item Value Reference Range Interpretation Comments TSH, THIRD GENERATION (test code 4.890 UIU/ML = 2821) [id number] 00:00:00 Test Item Value Reference Range Interpretation Comments TSH, THIRD GENERATION (test code 4.890 UIU/ML = 2821) COMPREHENSIVE METABOLIC [id number] 00:00:00 Test Item Value Reference Range Interpretation Comments GLUCOSE (test code = 2217) 121 MG/DL BUN (test code = 2208) 40 MG/DL CREATININE (test code = 2214) 1.48 MG/DL eGFR AMER. (test code 45 ML/MIN/1.73 = 23862) eGFR NON- AMER. (test 39 ML/MIN/1.73 code = 48369) CALC BUN/CREAT (test code = 27 RATIO [...] ALT (test code = 2219) 20 U/L [id number] 00:00:00 Test Item Value Reference Range Interpretation Comments TSH, THIRD GENERATION (test code 4.890 UIU/ML = 2821) [id number] 00:00:00 Test Item Value Reference Range Interpretation Comments TSH, THIRD GENERATION (test code 4.890 UIU/ML = 2821) [id number] 00:00:00 Test Item Value Reference Range Interpretation Comments TSH, THIRD GENERATION (test code 4.890 UIU/ML = 2821) COMPREHENSIVE METABOLIC [id number] 00:00:00 Test Item Value Reference Range Interpretation Comments GLUCOSE (test code = 2217) 121 MG/DL BUN (test code = 2208) 40 MG/DL CREATININE (test code = 2214) 1.48 MG/DL eGFR AMER. (test code 45 ML/MIN/1.73 = 60963) eGFR NON- AMER. (test 39 ML/MIN/1.73 code = 35053) CALC BUN/CREAT (test code = 27 RATIO [...] code = 2219) 20 U/L COMPREHENSIVE METABOLIC [id number] 00:00:00 Test Item Value Reference Range Interpretation Comments GLUCOSE (test code = 2217) 121 MG/DL BUN (test code = 2208) 40 MG/DL CREATININE (test code = 2214) 1.48 MG/DL eGFR AMER. (test code 45 ML/MIN/1.73 = 75698) eGFR NON- AMER. (test 39 ML/MIN/1.73 code = 79087) CALC BUN/CREAT (test code = 27 RATIO [...] (test code = 2219) 20 U/L LIPID [id number] 00:00:00 Test Item Value Reference Range Interpretation Comments CHOLESTEROL (test code = 2210) 261 MG/DL TRIGLYCERIDES (test code = 2232) 165 MG/DL HDL CHOLESTEROL (test code = 2220) 58 MG/DL CALC LDL CHOL (test code = 2237) 170 MG/DL RISK RATIO LDL/HDL (test code = 2.93 RATIO 2238) LIPID [id number] 00:00:00 Test Item Value Reference Range Interpretation Comments CHOLESTEROL (test code = 2210) 261 MG/DL TRIGLYCERIDES (test code = 2232) 165 MG/DL HDL CHOLESTEROL (test code = 2220) 58 MG/DL CALC LDL CHOL (test code = 2237) 170 MG/DL RISK RATIO LDL/HDL (test code = 2.93 RATIO 2238) CBC W/AUTO [id number] 00:00:00 Test Item Value Reference Range Interpretation [...] code = 1015) 378 K/UL CBC W/AUTO [id number] 00:00:00 Test Item Value Reference Range Interpretation [...] code = 1015) 378 K/UL CBC W/AUTO [id number] 00:00:00 Test Item Value Reference Range Interpretation [...] (test code = 1015) 378 K/UL HEMOGLOBIN [id number] 00:00:00 Test Item Value Reference Range Interpretation Comments HEMOGLOBIN A1c (test code = 29311) 6.4 % HEMOGLOBIN [id number] 00:00:00 Test Item Value Reference Range Interpretation Comments HEMOGLOBIN A1c (test code = 34038) 6.4 % HEMOGLOBIN [id number] 00:00:00 Test Item Value Reference Range Interpretation Comments HEMOGLOBIN A1c (test code = 15308) 6.4 % [id number] 00:00:00 Test Item Value Reference Range Interpretation Comments TSH (test code = 2821) 5.290 UIU/ML [id number] 00:00:00 Test Item Value Reference Range Interpretation Comments TSH (test code = 2821) 5.290 UIU/ML [id number] 00:00:00 Test Item Value Reference Range Interpretation Comments TSH (test code = 2821) 5.290 UIU/ML LIPID [id number] 00:00:00 Test Item Value Reference Range Interpretation Comments CHOLESTEROL (test code = 2210) 261 MG/DL TRIGLYCERIDES (test code = 2232) 165 MG/DL HDL CHOLESTEROL (test code = 2220) 58 MG/DL CALC LDL CHOL (test code = 2237) 170 MG/DL RISK RATIO LDL/HDL (test code = 2.93 RATIO 2238) LIPID [id number] 00:00:00 Test Item Value Reference Range Interpretation Comments CHOLESTEROL (test code = 2210) 261 MG/DL TRIGLYCERIDES (test code = 2232) 165 MG/DL HDL CHOLESTEROL (test code = 2220) 58 MG/DL CALC LDL CHOL (test code = 2237) 170 MG/DL RISK RATIO LDL/HDL (test code = 2.93 RATIO 2238) CBC W/AUTO [id number] 00:00:00 Test Item Value Reference Range Interpretation [...] code = 1015) 378 K/UL CBC W/AUTO [id number] 00:00:00 Test Item Value Reference Range Interpretation [...] code = 1015) 378 K/UL CBC W/AUTO [id number] 00:00:00 Test Item Value Reference Range Interpretation [...] (test code = 1015) 378 K/UL HEMOGLOBIN [id number] 00:00:00 Test Item Value Reference Range Interpretation Comments HEMOGLOBIN A1c (test code = 81352) 6.4 % HEMOGLOBIN [id number] 00:00:00 Test Item Value Reference Range Interpretation Comments HEMOGLOBIN A1c (test code = 64387) 6.4 % HEMOGLOBIN [id number] 00:00:00 Test Item Value Reference Range Interpretation Comments HEMOGLOBIN A1c (test code = 11584) 6.4 % [id number] 00:00:00 Test Item Value Reference Range Interpretation Comments TSH (test code = 2821) 5.290 UIU/ML [id number] 00:00:00 Test Item Value Reference Range Interpretation Comments TSH (test code = 2821) 5.290 UIU/ML [id number] 00:00:00 Test Item Value Reference Range Interpretation Comments TSH (test code = 2821) 5.290 UIU/ML LIPID [id number] 00:00:00 Test Item Value Reference Range Interpretation Comments CHOLESTEROL (test code = 2210) 261 MG/DL TRIGLYCERIDES (test code = 2232) 165 MG/DL HDL CHOLESTEROL (test code = 2220) 58 MG/DL CALC LDL CHOL (test code = 2237) 170 MG/DL RISK RATIO LDL/HDL (test code = 2.93 RATIO 2238) CBC W/AUTO [id number] 00:00:00 Test Item Value Reference Range Interpretation [...] code = 1015) 378 K/UL CBC W/AUTO [id number] 00:00:00 Test Item Value Reference Range Interpretation [...] (test code = 1015) 378 K/UL HEMOGLOBIN [id number] 00:00:00 Test Item Value Reference Range Interpretation Comments HEMOGLOBIN A1c (test code = 02427) 6.4 % HEMOGLOBIN [id number] 00:00:00 Test Item Value Reference Range Interpretation Comments HEMOGLOBIN A1c (test code = 38342) 6.4 % [id number] 00:00:00 Test Item Value Reference Range Interpretation Comments TSH (test code = 2821) 5.290 UIU/ML [id number] 00:00:00 Test Item Value Reference Range Interpretation Comments TSH (test code = 2821) 5.290 UIU/ML LIPID [id number] 00:00:00 Test Item Value Reference Range Interpretation Comments CHOLESTEROL (test code = 2210) 261 MG/DL TRIGLYCERIDES (test code = 2232) 165 MG/DL HDL CHOLESTEROL (test code = 2220) 58 MG/DL CALC LDL CHOL (test code = 2237) 170 MG/DL RISK RATIO LDL/HDL (test code = 2.93 RATIO 2238) LIPID [id number] 00:00:00 Test Item Value Reference Range Interpretation Comments CHOLESTEROL (test code = 2210) 261 MG/DL TRIGLYCERIDES (test code = 2232) 165 MG/DL HDL CHOLESTEROL (test code = 2220) 58 MG/DL CALC LDL CHOL (test code = 2237) 170 MG/DL RISK RATIO LDL/HDL (test code = 2.93 RATIO 2238) CBC W/AUTO [id number] 00:00:00 Test Item Value Reference Range Interpretation [...] code = 1015) 378 K/UL CBC W/AUTO [id number] 00:00:00 Test Item Value Reference Range Interpretation [...] code = 1015) 378 K/UL CBC W/AUTO [id number] 00:00:00 Test Item Value Reference Range Interpretation [...] (test code = 1015) 378 K/UL HEMOGLOBIN [id number] 00:00:00 Test Item Value Reference Range Interpretation Comments HEMOGLOBIN A1c (test code = 93616) 6.4 % HEMOGLOBIN [id number] 00:00:00 Test Item Value Reference Range Interpretation Comments HEMOGLOBIN A1c (test code = 32627) 6.4 % HEMOGLOBIN [id number] 00:00:00 Test Item Value Reference Range Interpretation Comments HEMOGLOBIN A1c (test code = 52541) 6.4 % [id number] 00:00:00 Test Item Value Reference Range Interpretation Comments TSH (test code = 2821) 5.290 UIU/ML [id number] 00:00:00 Test Item Value Reference Range Interpretation Comments TSH (test code = 2821) 5.290 UIU/ML [id number] 00:00:00 Test Item Value Reference Range Interpretation [...] code = 2821) 1.030 UIU/ML COMPREHENSIVE METABOLIC [id number] 00:00:00 Test Item Value Reference Range Interpretation Comments GLUCOSE (test code = 2217) 106 MG/DL BUN (test code = 2208) 23 MG/DL CREATININE (test code = 2214) 0.66 MG/DL eGFR AMER. (test code 114 ML/MIN/1.73 = 96579) eGFR NON- AMER. (test 99 ML/MIN/1.73 code = 93935) CALC BUN/CREAT (test code = 35 RATIO [...] code = 2219) 31 U/L COMPREHENSIVE METABOLIC [id number] 00:00:00 Test Item Value Reference Range Interpretation Comments GLUCOSE (test code = 2217) 106 MG/DL BUN (test code = 2208) 23 MG/DL CREATININE (test code = 2214) 0.66 MG/DL eGFR AMER. (test code 114 ML/MIN/1.73 = 82588) eGFR NON- AMER. (test 99 ML/MIN/1.73 code = 71908) CALC BUN/CREAT (test code = 35 RATIO [...] code = 2821) 0.335 UIU/ML COMPREHENSIVE METABOLIC [id number] 00:00:00 Test Item Value Reference Range Interpretation Comments GLUCOSE (test code = 2217) 106 MG/DL BUN (test code = 2208) 23 MG/DL CREATININE (test code = 2214) 0.66 MG/DL eGFR AMER. (test code 114 ML/MIN/1.73 = 58967) eGFR NON- AMER. (test 99 ML/MIN/1.73 code = 53498) CALC BUN/CREAT (test code = 35 RATIO [...] code = 2219) 31 U/L COMPREHENSIVE METABOLIC [id number] 00:00:00 Test Item Value Reference Range Interpretation Comments GLUCOSE (test code = 2217) 106 MG/DL BUN (test code = 2208) 23 MG/DL CREATININE (test code = 2214) 0.66 MG/DL eGFR AMER. (test code 114 ML/MIN/1.73 = 28564) eGFR NON- AMER. (test 99 ML/MIN/1.73 code = 48783) CALC BUN/CREAT (test code = 35 RATIO [...] code = 2821) 0.335 UIU/ML COMPREHENSIVE METABOLIC [id number] 00:00:00 Test Item Value Reference Range Interpretation Comments GLUCOSE (test code = 2217) 106 MG/DL BUN (test code = 2208) 23 MG/DL CREATININE (test code = 2214) 0.66 MG/DL eGFR AMER. (test code 114 ML/MIN/1.73 = 21394) eGFR NON- AMER. (test 99 ML/MIN/1.73 code = 50604) CALC BUN/CREAT (test code = 35 RATIO [...] code = 2821) 0.335 UIU/ML COMPREHENSIVE METABOLIC [id number] 00:00:00 Test Item Value Reference Range Interpretation Comments GLUCOSE (test code = 2217) 106 MG/DL BUN (test code = 2208) 23 MG/DL CREATININE (test code = 2214) 0.66 MG/DL eGFR AMER. (test code 114 ML/MIN/1.73 = 72562) eGFR NON- AMER. (test 99 ML/MIN/1.73 code = 41101) CALC BUN/CREAT (test code = 35 RATIO [...] code = 2219) 31 U/L COMPREHENSIVE METABOLIC [id number] 00:00:00 Test Item Value Reference Range Interpretation Comments GLUCOSE (test code = 2217) 106 MG/DL BUN (test code = 2208) 23 MG/DL CREATININE (test code = 2214) 0.66 MG/DL eGFR AMER. (test code 114 ML/MIN/1.73 = 54929) eGFR NON- AMER. (test 99 ML/MIN/1.73 code = 48205) CALC BUN/CREAT (test code = 35 RATIO [...] code = 2821) 0.335 UIU/ML COMPREHENSIVE METABOLIC [id number] 00:00:00 Test Item Value Reference Range Interpretation Comments GLUCOSE (test code = 2217) 103 MG/DL BUN (test code = 2208) 15 MG/DL CREATININE (test code = 2214) 0.77 MG/DL eGFR AMER. (test code 101 ML/MIN/1.73 = 79920) eGFR NON- AMER. (test 87 ML/MIN/1.73 code = 82248) CALC BUN/CREAT (test code = 19 RATIO [...] code = 2219) 24 U/L COMPREHENSIVE METABOLIC [id number] 00:00:00 Test Item Value Reference Range Interpretation Comments GLUCOSE (test code = 2217) 103 MG/DL BUN (test code = 2208) 15 MG/DL CREATININE (test code = 2214) 0.77 MG/DL eGFR AMER. (test code 101 ML/MIN/1.73 = 27362) eGFR NON- AMER. (test 87 ML/MIN/1.73 code = 86254) CALC BUN/CREAT (test code = 19 RATIO [...] code = 2821) 0.424 UIU/ML COMPREHENSIVE METABOLIC [id number] 00:00:00 Test Item Value Reference Range Interpretation Comments GLUCOSE (test code = 2217) 103 MG/DL BUN (test code = 2208) 15 MG/DL CREATININE (test code = 2214) 0.77 MG/DL eGFR AMER. (test code 101 ML/MIN/1.73 = 14513) eGFR NON- AMER. (test 87 ML/MIN/1.73 code = 11472) CALC BUN/CREAT (test code = 19 RATIO 223) SODIUM (test code = 2231) 136 MEQ/L [...] code = 2219) 24 U/L COMPREHENSIVE METABOLIC [id number] 00:00:00 Test Item Value Reference Range Interpretation Comments GLUCOSE (test code = 2217) 103 MG/DL BUN (test code = 2208) 15 MG/DL CREATININE (test code = 2214) 0.77 MG/DL eGFR AMER. (test code 101 ML/MIN/1.73 = 11229) eGFR NON- AMER. (test 87 ML/MIN/1.73 code = 24120) CALC BUN/CREAT (test code = 19 RATIO [...] code = 2821) 0.424 UIU/ML COMPREHENSIVE METABOLIC [id number] 00:00:00 Test Item Value Reference Range Interpretation Comments GLUCOSE (test code = 2217) 103 MG/DL BUN (test code = 2208) 15 MG/DL CREATININE (test code = 2214) 0.77 MG/DL eGFR AMER. (test code 101 ML/MIN/1.73 = 98570) eGFR NON- AMER. (test 87 ML/MIN/1.73 code = 16928) CALC BUN/CREAT (test code = 19 RATIO [...] code = 2821) 0.424 UIU/ML COMPREHENSIVE METABOLIC [id number] 00:00:00 Test Item Value Reference Range Interpretation Comments GLUCOSE (test code = 2217) 103 MG/DL BUN (test code = 2208) 15 MG/DL CREATININE (test code = 2214) 0.77 MG/DL eGFR AMER. (test code 101 ML/MIN/1.73 = 67925) eGFR NON- AMER. (test 87 ML/MIN/1.73 code = 57731) CALC BUN/CREAT (test code = 19 RATIO [...] code = 2219) 24 U/L COMPREHENSIVE METABOLIC [id number] 00:00:00 Test Item Value Reference Range Interpretation Comments GLUCOSE (test code = 2217) 103 MG/DL BUN (test code = 2208) 15 MG/DL CREATININE (test code = 2214) 0.77 MG/DL eGFR AMER. (test code 101 ML/MIN/1.73 = 58985) eGFR NON- AMER. (test 87 ML/MIN/1.73 code = 02650) CALC BUN/CREAT (test code = 19 RATIO [...] (test code = 2821) 0.424 UIU/ML CULTURE, [id number] 00:00:00 Test Item Value Reference Range Interpretation Comments CULTURE, URINE (test SPECIMEN NUMBER: code = 00850) [id number] CULTURE, [id number] 00:00:00 Test Item Value Reference Range Interpretation Comments CULTURE, URINE (test SPECIMEN NUMBER: code = 68162) [id number] CULTURE, [id number] 00:00:00 Test Item Value Reference Range Interpretation Comments CULTURE, URINE (test SPECIMEN NUMBER: code = 71509) [id number] CULTURE, [id number] 00:00:00 Test Item Value Reference Range Interpretation Comments CULTURE, URINE (test SPECIMEN NUMBER: code = 04778) [id number] CULTURE, [id number] 00:00:00 Test Item Value Reference Range Interpretation Comments CULTURE, URINE (test SPECIMEN NUMBER: code = 60570) [id number] CULTURE, [id number] 00:00:00 Test Item Value Reference Range Interpretation Comments CULTURE, URINE (test SPECIMEN NUMBER: code = 84948) [id number] CULTURE, [id number] 00:00:00 Test Item Value Reference Range Interpretation Comments CULTURE, URINE (test SPECIMEN NUMBER: code = 61490) [id number] CULTURE, [id number] 00:00:00 Test Item Value Reference Range Interpretation Comments CULTURE, URINE (test SPECIMEN NUMBER: code = 78802) [id number] CULTURE, [id number] 00:00:00 Test Item Value Reference Range Interpretation Comments CULTURE, URINE (test SPECIMEN NUMBER: code = 27759) [id number] CULTURE, [id number] 00:00:00 Test Item Value Reference Range Interpretation Comments CULTURE, URINE (test SPECIMEN NUMBER: code = 35080) [id number] CULTURE, [id number] 00:00:00 Test Item Value Reference Range Interpretation Comments CULTURE, URINE (test SPECIMEN NUMBER: code = 50876) [id number] CULTURE, [id number] 00:00:00 Test Item Value Reference Range Interpretation Comments CULTURE, URINE (test SPECIMEN NUMBER: code = 97111) [id number] CULTURE, [id number] 00:00:00 Test Item Value Reference Range Interpretation Comments CULTURE, URINE (test SPECIMEN NUMBER: code = 49505) [id number] CULTURE, [id number] 00:00:00 Test Item Value Reference Range Interpretation Comments CULTURE, URINE (test SPECIMEN NUMBER: code = 67196) [id number]
[2022-02-11 10:45] LABS: Absolute Lymphocytes (CBC) 2.4 K/uL (0.7-4.9); Hematocrit 35.9 % (36.0-45.0); Lymphocytes % 35.9 % (15.3-44.8); MCV 91.2 fL (80-100); MPV 6.9 fL (7.6-11.3); RBC Red Blood Cell Count 3.94 M/uL (3.86-4.86)
[2022-02-11 11:02] LABS: Albumin 3.7 g/dL (3.4-5.0); Bilirubin Total 0.1 mg/dL (0.2-1.0); Potassium 3.8 mmol/L (3.5-5.1); Protein, Total 7.5 g/dL (6.4-8.2)
--- NOTE | 2022-02-11 11:13 | ER ---
Nurse's Notes [facility] Name: Jaimie Amanda Age: 61 yrs Sex: Female : 1960 Arrival Date: 02/11/2022 Time: 10:10 Bed 13 Private MD: Diagnosis: Nausea with vomiting, unspecified Presentation: 02/11 10:27 Chief complaint: Patient states: started vomiting at 1am, but i dont know what time. I jh5 dont think I have a fever anymore. Coronavirus screen: Vaccine status: Patient reports receiving the 2nd dose of the covid vaccine. Client denies travel out of the [place] in the last 14 days. Ebola Screen: Patient negative for fever greater than or equal to 101.5 degrees Fahrenheit, and additional compatible Ebola Virus Disease symptoms Patient denies exposure to infectious person. Patient denies travel to an Ebola-affected area in the 21 days before illness onset. Initial Sepsis Screen: Does the patient meet any 2 criteria? No. Patient's initial sepsis screen is negative. Does the patient have a suspected source of infection? No. Patient's initial sepsis screen is negative. Risk Assessment: Do you want to hurt yourself or someone else? Patient reports no desire to harm self or others. Onset of symptoms was February 11, 2022. 10:27 Method Of Arrival: Ambulatory [facility] 10:27 Acuity: ZHEN 3 jh5 Triage Assessment: 10:29 General: Appears in no apparent distress. uncomfortable, slender, Behavior is calm, jh5 cooperative, appropriate for age. Pain: Denies pain. GI: Reports nausea, vomiting. Historical: - PMHx: 10:29 Alcoholism; Anxiety; Chronic Abdominal Pain; Hypertensive disorder; Hypothyroidism; low jh5 NA; NIDDM; - PSHx: 10:29 Thyroidectomy; jh5 - Immunization history:: Adult Immunizations up to date. - Social history:: Smoking status: Patient reports the use of cigarette tobacco products, denies chronic smoking, but will smoke occasionally. Screenin:05 Abuse screen: Denies threats or abuse. Denies injuries from another. Nutritional kc6 screening: No deficits noted. Tuberculosis screening: No symptoms or risk factors identified. Fall Risk None identified. Assessment: 11:07 General: Appears in no apparent distress. comfortable, Behavior is calm, cooperative, kc6 appropriate for age. Pain: Complains of pain in right lower quadrant Pain does not radiate. Pain currently is 8 out of 10 on a pain scale. Quality of pain is described as stabbing, Pain began 1 day ago. Is continuous, Alleviated by nothing. Aggravated by eating, drinking, Also complains of nausea. Neuro: Jorgensen Agitation-Sedation Scale (RASS): 0 - Alert and Calm Level of Consciousness is awake, alert, obeys commands, Oriented to person, place, time, situation, Appropriate for age. Respiratory: Airway is patent Trachea midline Respiratory effort is even, unlabored, Respiratory pattern is regular, symmetrical, Breath sounds are clear bilaterally. GI: Abdomen is distended, Bowel sounds present X 4 quads. Abd is soft X 4 quads Abdomen is tender to palpation in right lower quadrant Reports lower abdominal pain, nausea, vomiting, Patient currently denies bloody stool, diarrhea. : No signs and/or symptoms were reported regarding the genitourinary system. EENT: No signs and/or symptoms were reported regarding the EENT system. Derm: No signs and/or symptoms reported regarding the dermatologic system. Skin is intact, Skin is pink, warm \T\ dry. Musculoskeletal: No signs and/or symptoms reported regarding the musculoskeletal system. Circulation, motion, and sensation intact. Capillary refill < 3 seconds, Range of motion: intact in all extremities. Vital Signs: 10:27 BP 138 / 70; Pulse 80; Resp 18; Temp 98.6(O); Pulse Ox 96% on R/A; Weight 74.84 kg; jh5 Height 5 ft. 7 in. (170.18 cm); Pain 0/10; 11:10 BP 140 / 72; Pulse 75; Resp 18 S; Pulse Ox 99% on R/A; Pain 8/10; kc6 10:27 Body Mass Index 25.84 (74.84 kg, 170.18 cm) 5 ED Course: 10:10 Patient arrived in ED. as 10:21 Fawn Torres FNP-C is [facility]. snw 10:21 Tera Raymond MD is Attending Physician. snw 10:29 Triage completed. jh5 10:29 Arm band placed on right wrist. jh5 10:34 Inserted saline lock: 20 gauge in right antecubital area, using aseptic technique. db Blood collected. 10:46 Kelly Beavers, RN is Primary Nurse. kc6 11:21 No provider procedures requiring assistance completed. IV discontinued, intact, kc6 bleeding controlled, No redness/swelling at site. Pressure dressing applied. 11:22 Patient has correct armband on for positive identification. Bed in low position. Call kc6 light in reach. Side rails up X 1. Administered Medications: 11: Drug: Phenergan (promethazine) 25 mg Route: IM; Site: left deltoid; kc6 11:22 Follow up: Response: No adverse reaction; Nausea is decreased kc6 Medication: 11:22 VIS not applicable for this client. kc6 Outcome: 11:12 Discharge ordered by . snw 11:21 Discharged to home ambulatory. kc6 11:21 Condition: stable 11:21 Discharge instructions given to patient, Instructed on discharge instructions, follow up and referral plans. medication usage, Demonstrated understanding of instructions, follow-up care, medications, Prescriptions given X 1. 11:22 Patient left the ED. kc6 Signatures: Fawn Torres, HIGH SPEED OPERATOR-C HIGH SPEED OPERATOR-Ada Burgos Jessica RN RN jh5 Kelly Beavers, RN RN kc6 Stephie Collazo, RN RN db Corrections: (The following items were deleted from the chart) 11:10 11:05 General: Appears in no apparent distress. comfortable, kc6 kc6 11:10 11:07 General: Behavior is calm, cooperative, appropriate for age, kc6 kc6
--- NOTE | 2022-02-11 11:13 | EDPHYS ---
Physician Documentation [facility] Name: Jaimie Amanda Age: 61 yrs Sex: Female : 1960 Arrival Date: 02/11/2022 Time: 10:10 Bed 13 Private MD: ED Physician Tera Raymond HPI: 02/11 10:38 This 61 yrs old Female presents to ER via Ambulatory with complaints of Vomiting, Fever.snw 10:38 The patient presents to the emergency department with nausea, vomiting. Onset: The snw symptoms/episode began/occurred suddenly. The symptoms are aggravated by food . Severity of symptoms: At their worst the symptoms were moderate. The patient has experienced similar episodes in the past, chronically. The patient has not recently seen a physician. Historical: - PMHx: 10:29 Alcoholism; Anxiety; Chronic Abdominal Pain; Hypertensive disorder; Hypothyroidism; low jh5 NA; NIDDM; - PSHx: 10:29 Thyroidectomy; jh5 - Immunization history:: Adult Immunizations up to date. - Social history:: Smoking status: Patient reports the use of cigarette tobacco products, denies chronic smoking, but will smoke occasionally. ROS: 10:38 Constitutional: Negative for fever, chills, and weight loss, Eyes: Negative for injury, snw pain, redness, and discharge, ENT: Negative for injury, pain, and discharge, Neck: Negative for injury, pain, and swelling, Cardiovascular: Negative for chest pain, palpitations, and edema, Respiratory: Negative for shortness of breath, cough, wheezing, and pleuritic chest pain, Back: Negative for injury and pain, : Negative for injury, bleeding, discharge, and swelling, MS/Extremity: Negative for injury and deformity, Skin: Negative for injury, rash, and discoloration, Neuro: Negative for headache, weakness, numbness, tingling, and seizure. 10:38 Abdomen/GI: Positive for abdominal pain, nausea and vomiting. Exam: 10:37 Constitutional: This is a well developed, well nourished patient who is awake, alert, snw and in no acute distress. Head/Face: Normocephalic, atraumatic. Eyes: Pupils equal round and reactive to light, extra-ocular motions intact. Lids and lashes normal. Conjunctiva and sclera are non-icteric and not injected. Cornea within normal limits. Periorbital areas with no swelling, redness, or edema. ENT: Nares patent. No nasal discharge, no septal abnormalities noted. Tympanic membranes are normal and external auditory canals are clear. Oropharynx with no redness, swelling, or masses, exudates, or evidence of obstruction, uvula midline. Mucous membranes moist. Neck: Trachea midline, no thyromegaly or masses palpated, and no cervical lymphadenopathy. Supple, full range of motion without nuchal rigidity, or vertebral point tenderness. No Meningismus. Chest/axilla: Normal chest wall appearance and motion. Nontender with no deformity. No lesions are appreciated. Cardiovascular: Regular rate and rhythm with a normal S1 and S2. No gallops, murmurs, or rubs. Normal PMI, no JVD. No pulse deficits. Respiratory: Lungs have equal breath sounds bilaterally, clear to auscultation and percussion. No rales, rhonchi or wheezes noted. No increased work of breathing, no retractions or nasal flaring, tachypnea. Abdomen/GI: Soft, non-tender, with normal bowel sounds. No distension or tympany. No guarding or rebound. No evidence of tenderness throughout. Back: No spinal tenderness. No costovertebral tenderness. Full range of motion. Skin: Warm, dry with normal turgor. Normal color with no rashes, no lesions, and no evidence of cellulitis. MS/ Extremity: Pulses equal, no cyanosis. Neurovascular intact. Full, normal range of motion. Neuro: Awake and alert, GCS 15, oriented to person, place, time, and situation. Cranial nerves II-XII grossly intact. Motor strength 5/5 in all extremities. Sensory grossly intact. Cerebellar exam normal. Normal gait. Vital Signs: 10:27 BP 138 / 70; Pulse 80; Resp 18; Temp 98.6(O); Pulse Ox 96% on R/A; Weight 74.84 kg; [facility] Height 5 ft. 7 in. (170.18 cm); Pain 0/10; 11:10 BP 140 / 72; Pulse 75; Resp 18 S; Pulse Ox 99% on R/A; Pain 8/10; kc6 10:27 Body Mass Index 25.84 (74.84 kg, 170.18 cm) [facility] MDM: 10:21 Patient medically screened. snw 10:39 Data reviewed: vital signs, nurses notes. Data interpreted: Pulse oximetry: on room air snw is 96 %. Interpretation: normal. ED course: Pt has been evaluated in this ED 02/08, 02/09, 02/10, and is here at 1040 am today. 02/11 10:22 Order name: ETOH Level; Complete Time: 11:10 snw 02/11 10:22 Order name: CBC with Diff; Complete Time: 10:49 snw 02/11 10:22 Order name: CMP; Complete Time: 11:04 snw Administered Medications: 11:05 Drug: Phenergan (promethazine) 25 mg Route: IM; Site: left deltoid; kc6 11:22 Follow up: Response: No adverse reaction; Nausea is decreased kc6 Disposition: 18:43 Co-signature as Attending Physician, Tera Raymond MD I agree with the assessment and kdr plan of care. Disposition Summary: 02/11/22 11:12 Discharge Ordered Location: Home snw Condition: Stable snw Diagnosis - Nausea with vomiting, unspecified snw Followup: snw - With: Private Physician - When: 1 - 2 days - Reason: Recheck today's complaints, Continuance of care, Re-evaluation by your physician Discharge Instructions: - Discharge Summary Sheet snw - Nausea and Vomiting, Adult, [id number] snw Forms: - Medication Reconciliation Form snw - Thank You Letter snw - Antibiotic Education snw - Prescription Opioid Use snw Prescriptions: - promethazine 25 mg Oral Tablet - take 1 tablet by ORAL route every 6 hours As needed; 15 tablet; Refills: 0, snw Product Selection Permitted Signatures: Dispatcher [employer] Tera Calderon MD MD kdr Waters, Shelly, INTERNAL CONTROL ANALYST-C INTERNAL CONTROL ANALYST-Csnw Sandi Hernandez, RN RN jh5 Kelly Beavers RN RN kc6
[2022-02-11 13:38] VITALS: TEMP 98.6
[2022-02-11 13:39] VITALS: BP 140/72; O2SAT 99
== END 2022-02-11 11:22 | disposition home or self-care (01) ==
LOC: ER 10:08
DX: R11.2 Nausea with vomiting, unspecified (principal); F10.20 Alcohol dependence, uncomplicated; I10 Essential (primary) hypertension; F17.210 Nicotine dependence, cigarettes, uncomplicated
CPT/HCPCS: 36415; 80053; 80320; 85025; 96372; 99284

== ENCOUNTER 2022-02-12 07:28 | Emergency (ER) | payer OTHER ==
--- OUTSIDE RECORDS SUMMARY | 2022-02-12 07:41 | XMS REPORT | Continuity of Care Document ---
:1960 Author Organization [facility] t Address [address] [place] [address] Care Team Providers Name Role Phone [facility] Primary Care Physician MATT SIMPSON Attending Clinician Unavailable MATT SIMPSON Attending Clinician Unavailable Doctor Unassigned, [place] Attending Clinician Unavailable WALLY KRISHNAMURTHY Attending Clinician Unavailable Natacha rBewster Attending Clinician Payers Payer Name Policy Type Policy Number Effective Date Expiration Date Sarina castelan [facility] [id number] 2017 00:00:00 PLUS Problems This patient has [...] s TRANSDER - ity of MAL 00:00: [place] [facility] ACETAMIN DRUG Active Other-Cmnt Univ ers OPHEN INGREDI 07-27 ity of 00:00: [place] 00 [facility] Hmg-Coa Propensi Inactiv Reductas ty to e 2-28 e adverse 00:00: Inhibito reaction 00 rs to drug Nitrogly Propensi Active 2017-03 cerin ty to 1-08 adverse 00:00: reaction 00 to drug Social History Social Habit Start Date Stop Date Quantity Comments Source Alcohol intake 2016-05-01 2016-05-01 Current [facility] es 00:00:00 00:00:00 non-drinker of Medical nter alcohol (finding) Sex Assigned At [birth year] [facility] 00:00:00 00:00:00 [facility] Smoking Status Start Date Stop Date Source Current every day smoker 2016-05-01 00:00:00 [facility] Medications Ordered Filled Start Stop Current Ordering Indication Dosage Frequency Signature Comments Components Source Medication Medication Date Date Medication? Clinician (SIG) Name Name LOSARTAN 2021-03 No POTASSIUM/H 2-05 YDROCHLOROT 00:00: HIAZ SAIDA 00 100-25 MG TABS ZOLPIDEM 2021-03 No TARTRATE 10 1-04 MG TABS 00:00: 00 ONDANSETRON 2021-03 No 4 4MG Tablets 03-12 00:00: 00 TAKE 2021-03 No TABLET BY 1-04 MOUTH DAILY 00:00: AT BEDTIME 00 TEMAZEPAM 2021-03 No 30 MG CAPS 03-12 00:00: 00 TAKE 2021-03 No TABLET BY [...] 00 NEEDED FOR NAUSEA AND VOMITING TAKE 1 2022-1 No TABLET BY 1-04 MOUTH DAILY 00:00: AT BEDTIME 00 Dose 2-1 No Unknown -04 00:00: 00 TAKE 1 2-1 No TABLET [...] TAKE 2 2-0 No 750 TABLETS BY 9 MOUTH THREE 00:00: TIMES DAILY 00 NEEDED TAKE 1 2-0 No TABLET BY 9-02 MOUTH EVERY 00:00: 12 HOURS 00 FOR 10 DAYS CLONAZEPAM 2022-0 No 2 MG TABS 11-08 00:00: 00 DICLOFENAC 2022-[address] 9- Tablets 00:00: 00 TAKE 2 2022-0 No [...] Dose 2-0 No Unknown 4-06 00:00: 00 levothyroxi 2-0 [...] 1-1 No Unknown 2-08 00:00: 00 Dose 2020-1 No Unknown 2-08 00:00: 00 losartan 2020-1 No 1mg 100 0-19 mg-hydrochl 00:00: orothiazide 00 25 mg tablet Dose 2020-1 No Unknown 0-19 00:00: 00 levothyroxi 2020-1 No 1mcg ne 137 mcg 0-19 tablet 00:00: 00 losartan 2020-1 No 1mg 100 0-19 mg-hydrochl 00:00: orothiazide [...] mcg/actuati 00 on nasal spray,suspe nsion Tessalon 2021-0 No 1mg Perles 100 8-02 mg capsule 00:00: 00 cetirizine 2021-0 No 1mg 10 mg 8-02 tablet 00:00: 00 fenofibrate 2021-0 No 1mg 160 mg 8-02 tablet 00:00: 00 fluticasone 2021-0 No 2mcg/ac propionate 8-02 tuation 50 00:00: mcg/actuati 00 on nasal spray,suspjuan ramon antoineion Tessalon 1-0 No 1mg Perles 100 8-02 [...] Keflex 500 2017-0 No 1mg mg capsule - 00:00: 00 Keflex 500 2017-0 No 1mg mg capsule 08-11 00:00: 00 Keflex 500 2017-0 No 1mg mg capsule 6- 00:00: 00 Keflex 500 2017-0 No 1mg mg capsule - 00:00: 00 hydrochloro 2017-0 No 1mg thiazide [...] anjel[facility] OXcarbazepi 2017-0 Yes 600mg Q.59105823 Take [address] ne 2-23 [id number] [facility] by [facility] (TRILEPTAL) 10:23: 3D mouth 3 Med ical 600 MG 59 (three) Center tablet times daily. PARoxetine 2017-0 Yes 40mg QD Take [address] (PAXIL) 40 2-23 by mouth [facility] tablet 10:23: nightly. [address] OXcarbazepi 2017-0 Yes 600mg Q.10448688 Take [address] ne 2-23 [id number] mg by [facility] (TRILEPTAL) 10:23: 3D mouth 3 Med ical 600 MG 59 (three) Center tablet times daily. OXcarbazepi 2017-0 Yes 600mg Q.99012875 Take [address] ne 2-23 1305244245 mg by [facility] (TRILEPTAL) 10:23: 3D mouth 3 Med ical 600 MG 59 (three) Center tablet times daily. PARoxetine 2017-0 Yes 40mg QD Take [address] (PAXIL) 40 2-23 by mouth [facility] tablet 10:23: nightly. [address] PARoxetine 2017-0 Yes 40mg QD Take [address] (PAXIL) 40 2-23 by mouth [facility] tablet 10:23: nightly. [address] OXcarbazepi 2017-0 Yes 600mg Q.90375924 Take [address] ne 2-23 [id number] [facility] (TRILEPTAL) 10:23: 3D mouth 3 Med ical 600 MG 59 (three) Center tablet times daily. PARoxetine 2017-0 Yes 40mg QD Take [address] (PAXIL) 40 2-23 by mouth [facility] tablet 10:23: nightly. [address] OXcarbazepi 2017-0 Yes 600mg Q.46414852 Take [address] ne 2-23 [id number] [facility] (TRILEPTAL) 10:23: 3D mouth 3 Med ical 600 MG 59 (three) Center tablet times daily. PARoxetine 2017-0 Yes 40mg QD Take [address] (PAXIL) 40 2-23 by mouth [facility] tablet 10:23: nightly. [address] OXcarbazepi 2017-0 Yes 600mg Q.11017779 Take [address] ne 2-23 [id number] mg by [facility] (TRILEPTAL) 10:23: 3D mouth 3 Med ical 600 MG 59 (three) Center tablet times daily. PARoxetine 2017-0 Yes 40mg QD Take [address] (PAXIL) 40 2-23 by mouth [facility] tablet 10:23: nightly. [address] 2017-0 Yes 600mg Q.87343976 Take [address] ne 2-23 8634521531 [facility] (TRILEPTAL) 10:23: 3D mouth 3 Med ical 600 MG 59 (three) Center tablet times daily. PARoxetine 2017-0 Yes 40mg QD Take [address] (PAXIL) 40 2-23 by [facility] tablet 10:23: nightly. [address] 2017-0 Yes 600mg Q.23386027 Take [address] ne 2-23 [id number] [facility] (TRILEPTAL) 10:23: 3D mouth 3 Med ical 600 MG 59 (three) Center tablet times daily. PARoxetine 2017-0 Yes 40mg QD Take [address] (PAXIL) 40 2-23 by mouth [facility] tablet 10:23: nightly. [address] 2017-0 Yes 600mg Q.86193355 Take [address] ne 2-23 [id number] mg by [facility] (TRILEPTAL) 10:23: 3D mouth 3 Med ical 600 MG 59 (three) Center tablet times daily. PARoxetine 2017-0 Yes 40mg QD Take [address] (PAXIL) 40 2-23 by mouth [facility] tablet 10:23: nightly. [address] OXcarbazepi 2017-0 Yes 600mg Q.42882693 Take [address] ne 2-23 [id number] [facility] by [facility] (TRILEPTAL) 10:23: 3D mouth 3 Med ical 600 MG 59 (three) Center tablet times daily. PARoxetine 2017-0 Yes 40mg QD Take [address] (PAXIL) 40 2-23 by mouth [facility] tablet 10:23: nightly. [address] OXcarbazepi 2017-0 Yes 600mg Q.78336526 Take [address] ne 2-23 [id number] mg by [facility] (TRILEPTAL) 10:23: 3D mouth 3 Med ical 600 MG 59 (three) Center tablet times daily. OXcarbazepi 2017-0 Yes 600mg Q.88309212 Take [address] ne 2-23 [id number] mg by [facility] (TRILEPTAL) 10:23: 3D mouth 3 Med ical 600 MG 59 (three) Center tablet times daily. PARoxetine 2017-0 Yes 40mg QD Take [address] (PAXIL) 40 2-23 by mouth [facility] MG tablet 10:23: nightly. [facility] [address] OXcarbazepi 2017-0 Yes 600mg Q.70249208 Take [address] ne 2-23 [id number] mg by [facility] (TRILEPTAL) 10:23: 3D mouth 3 Med ical 600 MG 59 (three) Center tablet times daily. PARoxetine 2017-0 Yes 40mg QD Take [address] (PAXIL) 40 2-23 by mouth [facility] tablet 10:23: nightly. [facility] [address] OXcarbazepi 2017-0 Yes 600mg Q.44212068 Take [address] ne 2-23 7328535994 mg by [facility] (TRILEPTAL) 10:23: 3D mouth 3 Med ical 600 MG 59 (three) Center tablet times daily. PARoxetine 2017-0 Yes 40mg QD Take [address] (PAXIL) 40 2-23 by mouth [facility] tablet 10:23: nightly. [address] PARoxetine 2017-0 Yes 40mg QD Take [address] (PAXIL) 40 2-23 by mouth [facility] tablet 10:23: nightly. [address] OXcarbazepi 2017-0 Yes 600mg Q.67647520 Take [address] ne 2-23 [id number] mg by [facility] (TRILEPTAL) 10:23: 3D mouth [...] Goal Plan of Care Note [code = 53787-7] Goal Plan of Care Note [code = 28999-2] Goal Plan of Care Note [code = 97829-9] Goal Plan of Care Note [code = 89931-8] Goal Plan of Care Note [code = 93686-3] Goal Plan of Care Note [code = 46279-5] Goal Plan of Care Note [code = 09327-0] Goal Plan of Care Note [code = 58349-1] Goal Plan of Care Note [code = 65678-9] Goal Plan of Care Note [code = 57303-1] Goal Plan of Care Note [code = 40155-6] Goal Plan of Care Note [code = 68973-3] Goal Plan of Care Note [code = 35810-6] Goal Plan of Care Note [code = 79963-1] Goal Plan of Care Note [code = 27565-9] Goal Plan of Care Note [code = 95513-5] Goal Plan of Care Note [code = 21814-2] Goal Plan of Care Note [code = 99601-5] Goal Plan of Care Note [code = 11467-4] Goal Plan of Care Note [code = 95272-8] Goal Plan of Care Note [code = 50353-0] Goal Plan of Care Note [code = 91545-9] Goal Plan of Care Note [code = 74440-1] Goal Plan of Care Note [code = 39231-6] Goal Plan of Care Note [code = 94928-1] Goal Plan of Care Note [code = 36288-6] Goal Plan of Care Note [code = 08291-3] Goal Plan of Care Note [code = 66686-0] Goal Plan of Care Note [code = 87389-4] Goal Plan of Care Note [code = 61032-7] Goal Plan of Care Note [code = 27051-3] Goal Plan of Care Note [code = 65532-4] Goal Plan of Care Note [code = 92349-7] Goal Plan of Care Note [code = 03833-3] Goal Plan of Care Note [code = 58376-9] Goal Plan of Care Note [code = 04021-4] Goal Plan of Care Note [code = 84615-2] Goal Plan of Care Note [code = 24613-1] Goal Plan of Care Note [code = 32484-2] Goal Plan of Care Note [code = 84714-5] Goal Plan of Care Note [code = 65292-5] Goal Plan of Care Note [code = 37469-9] Goal Plan of Care Note [code = 07768-5] Goal Plan of Care Note [code = 17065-8] Goal Plan of Care Note [code = 67570-8] Goal Plan of Care Note [code = 78963-2] Goal Plan of Care Note [code = 95493-3] Goal Plan of Care Note [code = 41390-6] Goal Plan of Care Note [code = 31984-4] Goal Plan of Care Note [code = 46145-9] Goal Plan of Care Note [code = 69289-2] Goal Plan of Care Note [code = 29230-1] Goal Plan of Care Note [code = 29576-3] Goal Plan of Care Note [code = 50741-6] Goal Plan of Care Note [code = 56008-1] Goal Plan of Care Note [code = 32499-3] Goal Plan of Care Note [code = 44769-7] Goal Plan of Care Note [code = 16911-8] Goal Plan of Care Note [code = 54619-0] Goal Plan of Care Note [code = 14006-1] Goal Plan of Care Note [code = 32636-3] Goal Plan of Care Note [code = 88740-0] Goal Plan of Care Note [code = 47379-0] Goal Plan of Care Note [code = 59017-8] Goal Plan of Care Note [code = 24688-0] Goal Plan of Care Note [code = 25869-8] Goal Plan of Care Note [code = 02401-3] Goal Plan of Care Note [code = 11803-5] Goal Plan of Care Note [code = 02513-2] Goal Plan of Care Note [code = 26315-6] Goal Plan of Care Note [code = 24579-5] Goal Plan of Care Note [code = 32858-5] Goal Plan of Care Note [code = 26027-1] Goal Plan of Care Note [code = 44560-6] Goal Plan of Care Note [code = 13699-2] Goal Plan of Care Note [code = 87557-4] Goal Plan of Care Note [code = 35149-4] Goal Plan of Care Note [code = 00598-2] Goal Plan of Care Note [code = 65371-4] Goal Plan of Care Note [code = 85090-7] Goal Plan of Care Note [code = 69295-5] Goal Plan of Care Note [code = 75598-7] Goal Plan of Care Note [code = 29172-6] Goal Plan of Care Note [code = 97936-9] Goal Plan of Care Note [code = 50704-0] Goal Plan of Care Note [code = 60922-2] Goal Plan of Care Note [code = 58202-7] Goal Plan of Care Note [code = 26083-5] Goal Plan of Care Note [code = 26504-9] Goal Plan of Care Note [code = 66885-5] Goal Plan of Care Note [code = 46500-9] Goal Plan of Care Note [code = 50586-7] Goal Plan of Care Note [code = 47681-0] Goal Plan of Care Note [code = 48479-5] Goal Plan of Care Note [code = 12497-6] Goal Plan of Care Note [code = 57511-9] Goal Plan of Care Note [code = 36143-3] Goal Plan of Care Note [code = 19897-9] Goal Plan of Care Note [code = 74641-8] Goal Plan of Care Note [code = 96103-5] Goal Plan of Care Note [code = 36916-5] Goal Plan of Care Note [code = 93623-6] Goal Plan of Care Note [code = 12294-7] Goal Plan of Care Note [code = 74012-3] Goal Plan of Care Note [code = 42160-1] Goal Plan of Care Note [code = 31004-8] Goal Plan of Care Note [code = 11086-6] Goal Plan of Care Note [code = 69116-4] Goal Plan of Care Note [code = 50696-9] Goal Plan of Care Note [code = 33651-3] Goal Plan of Care Note [code = 90831-8] Goal Plan of Care Note [code = 44979-9] Goal Plan of Care Note [code = 55237-7] Goal Plan of Care Note [code = 70169-8] Goal Plan of Care Note [code = 10362-4] Goal Plan of Care Note [code = 86187-0] Goal Plan of Care Note [code = 97830-7] Goal Plan of Care Note [code = 65937-4] Goal Plan of Care Note [code = 94186-6] Goal Plan of Care Note [code = 94590-3] Goal Plan of Care Note [code = 03479-7] Goal Plan of Care Note [code = 94319-5] Goal Plan of Care Note [code = 03728-2] Goal Plan of Care Note [code = 60032-7] Goal Plan of Care Note [code = 50670-9] Goal Plan of Care Note [code = 35556-7] Goal Plan of Care Note [code = 27493-4] Goal Plan of Care Note [code = 55901-4] Goal Plan of Care Note [code = 33197-8] Goal Plan of Care Note [code = 09621-1] Goal Plan of Care Note [code = 28686-3] Goal Plan of Care Note [code = 77784-2] Goal Plan of Care Note [code = 98065-0] Goal Plan of Care Note [code = 33669-0] Goal Plan of Care Note [code = 05938-4] Goal Plan of Care Note [code = 42450-4] Goal Plan of Care Note [code = 18564-8] Goal Plan of Care Note [code = 80598-0] Goal Plan of Care Note [code = 84540-8] Goal Plan of Care Note [code = 07002-8] Goal Plan of Care Note [code = 03981-3] Goal Plan of Care Note [code = 02738-8] Goal Plan of Care Note [code = 32901-0] Goal Plan of Care Note [code = 06370-1] Goal Plan of Care Note [code = 70063-8] Goal Plan of Care Note [code = 13690-8] Goal Plan of Care Note [code = 38634-9] Goal Plan of Care Note [code = 88869-9] Goal Plan of Care Note [code = 81429-4] Goal Plan of Care Note [code = 12035-1] Goal Plan of Care Note [code = 59574-1] Goal Plan of Care Note [code = 60513-7] Goal Plan of Care Note [code = 12533-7] Goal Plan of Care Note [code = 89581-9] Goal Plan of Care Note [code = 16389-6] Goal Plan of Care Note [code = 56057-5] Goal Plan of Care Note [code = 07985-2] Goal Plan of Care Note [code = 30970-4] Goal Plan of Care Note [code = 99658-8] Goal Plan of Care Note [code = 29554-1] Goal Plan of Care Note [code = 32791-7] Goal Plan of Care Note [code = 95824-9] Goal Plan of Care Note [code = 99519-3] Goal Plan of Care Note [code = 49336-4] Goal Plan of Care Note [code = 33463-5] Goal Plan of Care Note [code = 70637-1] Goal Plan of Care Note [code = 82716-0] Goal Plan of Care Note [code = 31553-2] Goal Plan of Care Note [code = 86691-9] Goal Plan of Care Note [code = 39877-3] Goal Plan of Care Note [code = 10064-9] Goal Plan of Care Note [code = 06801-6] Goal Plan of Care Note [code = 05720-3] Goal Plan of Care Note [code = 76461-3] Goal Plan of Care Note [code = 31550-7] Goal Plan of Care Note [code = 98501-7] Goal Plan of Care Note [code = 74530-9] Goal Plan of Care Note [code = 34030-4] Goal Plan of Care Note [code = 98119-3] Goal Plan of Care Note [code = 77330-0] Goal Plan of Care Note [code = 01876-4] Goal Plan of Care Note [code = 59860-1] Goal Plan of Care Note [code = 04159-8] Goal Plan of Care Note [code = 72605-3] Goal Plan of Care Note [code = 46625-8] Goal Plan of Care Note [code = 29455-9] Goal Plan of Care Note [code = 73275-6] Goal Plan of Care Note [code = 07484-2] Goal Plan of Care Note [code = 89545-0] Goal Plan of Care Note [code = 75702-1] Goal Plan of Care Note [code = 98783-2] Goal Plan of Care Note [code = 78994-0] Goal Plan of Care Note [code = 45034-6] Goal Plan of Care Note [code = 69035-9] Goal Plan of Care Note [code = 79251-1] Goal Plan of Care Note [code = 71686-6] Goal Plan of Care Note [code = 87941-6] Goal Plan of Care Note [code = 74356-3] Goal Plan of Care Note [code = 75794-8] Goal Plan of Care Note [code = 55581-6] Goal Plan of Care Note [code = 29288-0] Goal Plan of Care Note [code = 98131-0] Goal Plan of Care Note [code = 79789-7] Goal Plan of Care Note [code = 04691-7] Goal Plan of Care Note [code = 42667-2] Goal Plan of Care Note [code = 98434-7] Goal Plan of Care Note [code = 07103-7] Goal Plan of Care Note [code = 35464-9] Encounters Start End Encounter Admission Attending Care Care Encounter Source Date/Time Date/Time Type Type Clinicians Facility Department ID 2021-06-01 Outpatient [facility] [id number] [place] 01:36:29 [id number] [facility] 2022-02-11 2022-02-11 Outpatient SFA SFA [id number] Cristian 09:04:48 09:04:48 1206 F Jerman 2022-02-10 2022-02-10 Outpatient SFA SFA [id number] 022 Cristian 09:29:34 09:29:34 1205 F Jerman 2022-02-10 2022-02-10 Outpatient [id number]- [id number] [id number] 00:00:00 00:00:00 Visit 4089-4cab 089-4cab-9 -5xz2-o4n bf5-h8b114 746rchl53 bafa93 2022-01-10 2022-01-10 Outpatient SFA SFA [id number] 022 Cristian 09:16:14 09:16:14 1104 F Jerman 2022-01-10 2022-01-10 Outpatient g3rougs3- [id number] f2 accaa6-a 00:00:00 00:00:00 Visit aca9-4c83 ca9-4c83-a -x6th-ot6 7eb-bc13f3 8o0k682i2 f032f9 2021-12-19 2021-12-19 Outpatient SFA SFA [id number] 022 Cristian 16:11:31 16:11:31 1013 F Jerman 2021-12-19 2021-12-19 Outpatient [id number] [id number] 00:00:00 00:00:00 Visit i786-848z 770-441f-a -adae-62b amelia-62bace dmlmb86uw fd81af 2021-09-17 2021-09-17 Outpatient nnn6neye- [id number] aa q7qjxo-2 00:00:00 00:00:00 Visit 935a-4f50 35a-4f50-b -n96a-j9c 77d-c2ba85 [id number] 1264a6 2020-08-03 2020-08-03 Outpatient MATT VÁSQUEZ [facility] [id number] Univers 10:00:00 10:00:00 MATT SIMPSON [facility] 2020-07-25 2020-07-25 Orders Doctor ABE [id number] 00:00:00 00:00:00 Only Unassigned, BK 350.1.13.10 [place] [facility] 4.2.7.2.686 [id number] 2019-09-26 2019-09-26 Outpatient Bertin KRISHNAMURTHY [facility] [id number] Univers 16:00:00 16:00:00 WALLY [facility] 2018-10-21 2018-10-21 Telephone [facility], [facility] [id number] 00:00:00 00:00:00 Natacha Nguyen 350.1.13.10 Ade 4.2.7.2.686 [place] [id number] [facility] Results Test Description Test Time Test Comments Results Result Comments Source TSH, THIRD GENERATION 2021-06-27 05:15:49 Test Item Value Reference Range Interpretation Comme nts TSH, THIRD GENERATION (test code = 2821) 2.080 UIU/ML 0.400-4.100 HEMOGLOBIN [id number] 03:46:00 Test Item Value Reference Range Interpretation Comments HEMOGLOBIN A1c (test 6.6 % 4.2-5.6 H [employer] AN DIABETES code = 89642) ASSOCIATION IDELINES FOR HGB A1C: PREDIABETES/INC REASED [...] INDICATED, ALL TESTING PER FORMED ATCLINICAL PATH [facility]ORATORIES, [facility]. [address] [place] [address] LABORATORY DIRE CTOR: DIANA RUSS M.D. [place] NUMBER [id number] [facility] [place]. [id number] LIPID [id number] 02:59:52 Test Item Value Reference Range Interpretation [...] MOREINFORMATION , SEE CLIENT ANNOUNCE MENT AT [email or web address] RISK RATIO LDL/HDL 4.02 RATIO <3.22 H (test code = 2238) [id number] 00:00:00 Test Item Value Reference Range Interpretation Comments TSH, THIRD GENERATION (test code 2.080 UIU/ML = 2821) [id number] 00:00:00 Test Item Value Reference Range Interpretation Comments TSH, THIRD GENERATION (test code 2.080 UIU/ML = 2821) [id number] 00:00:00 Test Item Value Reference Range Interpretation Comments TSH, THIRD GENERATION (test code 2.080 UIU/ML = 2821) LIPID [id number] 00:00:00 Test Item Value Reference Range Interpretation Comments CHOLESTEROL (test code = 2210) 292 MG/DL TRIGLYCERIDES (test code = 2232) 184 MG/DL HDL CHOLESTEROL (test code = 2220) 51 MG/DL CALC LDL CHOL (test code = 2237) 205 MG/DL RISK RATIO LDL/HDL (test code = 4.02 RATIO 2238) LIPID [id number] 00:00:00 Test Item Value Reference Range Interpretation Comments CHOLESTEROL (test code = 2210) 292 MG/DL TRIGLYCERIDES (test code = 2232) 184 MG/DL HDL CHOLESTEROL (test code = 2220) 51 MG/DL CALC LDL CHOL (test code = 2237) 205 MG/DL RISK RATIO LDL/HDL (test code = 4.02 RATIO 2238) HEMOGLOBIN [id number] 00:00:00 Test Item Value Reference Range Interpretation Comments HEMOGLOBIN A1c (test code = 74594) 6.6 % HEMOGLOBIN [id number] 00:00:00 Test Item Value Reference Range Interpretation Comments HEMOGLOBIN A1c (test code = 48400) 6.6 % HEMOGLOBIN [id number] 00:00:00 Test Item Value Reference Range Interpretation Comments HEMOGLOBIN A1c (test code = 51946) 6.6 % [id number] 00:00:00 Test Item Value Reference Range Interpretation Comments TSH, THIRD GENERATION (test code 2.080 UIU/ML = 2821) [id number] 00:00:00 Test Item Value Reference Range Interpretation Comments TSH, THIRD GENERATION (test code 2.080 UIU/ML = 2821) [id number] 00:00:00 Test Item Value Reference Range Interpretation Comments TSH, THIRD GENERATION (test code 2.080 UIU/ML = 2821) LIPID [id number] 00:00:00 Test Item Value Reference Range Interpretation Comments CHOLESTEROL (test code = 2210) 292 MG/DL TRIGLYCERIDES (test code = 2232) 184 MG/DL HDL CHOLESTEROL (test code = 2220) 51 MG/DL CALC LDL CHOL (test code = 2237) 205 MG/DL RISK RATIO LDL/HDL (test code = 4.02 RATIO 2238) LIPID [id number] 00:00:00 Test Item Value Reference Range Interpretation Comments CHOLESTEROL (test code = 2210) 292 MG/DL TRIGLYCERIDES (test code = 2232) 184 MG/DL HDL CHOLESTEROL (test code = 2220) 51 MG/DL CALC LDL CHOL (test code = 2237) 205 MG/DL RISK RATIO LDL/HDL (test code = 4.02 RATIO 2238) HEMOGLOBIN [id number] 00:00:00 Test Item Value Reference Range Interpretation Comments HEMOGLOBIN A1c (test code = 40415) 6.6 % HEMOGLOBIN [id number] 00:00:00 Test Item Value Reference Range Interpretation Comments HEMOGLOBIN A1c (test code = 44352) 6.6 % HEMOGLOBIN [id number] 00:00:00 Test Item Value Reference Range Interpretation Comments HEMOGLOBIN A1c (test code = 36319) 6.6 % [id number] 00:00:00 Test Item Value Reference Range Interpretation Comments TSH, THIRD GENERATION (test code 2.080 UIU/ML = 2821) [id number] 00:00:00 Test Item Value Reference Range Interpretation Comments TSH, THIRD GENERATION (test code 2.080 UIU/ML = 2821) LIPID [id number] 00:00:00 Test Item Value Reference Range Interpretation Comments CHOLESTEROL (test code = 2210) 292 MG/DL TRIGLYCERIDES (test code = 2232) 184 MG/DL HDL CHOLESTEROL (test code = 2220) 51 MG/DL CALC LDL CHOL (test code = 2237) 205 MG/DL RISK RATIO LDL/HDL (test code = 4.02 RATIO 2238) HEMOGLOBIN [id number] 00:00:00 Test Item Value Reference Range Interpretation Comments HEMOGLOBIN A1c (test code = 59140) 6.6 % HEMOGLOBIN [id number] 00:00:00 Test Item Value Reference Range Interpretation Comments HEMOGLOBIN A1c (test code = 48548) 6.6 % [id number] 00:00:00 Test Item Value Reference Range Interpretation Comments TSH, THIRD GENERATION (test code 2.080 UIU/ML = 2821) [id number] 00:00:00 Test Item Value Reference Range Interpretation Comments TSH, THIRD GENERATION (test code 2.080 UIU/ML = 2821) [id number] 00:00:00 Test Item Value Reference Range Interpretation Comments TSH, THIRD GENERATION (test code 2.080 UIU/ML = 2821) LIPID [id number] 00:00:00 Test Item Value Reference Range Interpretation Comments CHOLESTEROL (test code = 2210) 292 MG/DL TRIGLYCERIDES (test code = 2232) 184 MG/DL HDL CHOLESTEROL (test code = 2220) 51 MG/DL CALC LDL CHOL (test code = 2237) 205 MG/DL RISK RATIO LDL/HDL (test code = 4.02 RATIO 2238) LIPID [id number] 00:00:00 Test Item Value Reference Range Interpretation Comments CHOLESTEROL (test code = 2210) 292 MG/DL TRIGLYCERIDES (test code = 2232) 184 MG/DL HDL CHOLESTEROL (test code = 2220) 51 MG/DL CALC LDL CHOL (test code = 2237) 205 MG/DL RISK RATIO LDL/HDL (test code = 4.02 RATIO 2238) HEMOGLOBIN [id number] 00:00:00 Test Item Value Reference Range Interpretation Comments HEMOGLOBIN A1c (test code = 36984) 6.6 % HEMOGLOBIN [id number] 00:00:00 Test Item Value Reference Range Interpretation Comments HEMOGLOBIN A1c (test code = 04881) 6.6 % HEMOGLOBIN [id number] 00:00:00 Test Item Value Reference Range Interpretation Comments HEMOGLOBIN A1c (test code = 40598) 6.6 % HEMOGLOBIN [id number] 00:00:00 Test Item Value Reference Range Interpretation Comments HEMOGLOBIN A1c (test code = 10365) 6.8 % HEMOGLOBIN [id number] 00:00:00 Test Item Value Reference Range Interpretation Comments HEMOGLOBIN A1c (test code = 44439) 6.8 % HEMOGLOBIN [id number] 00:00:00 Test Item Value Reference Range Interpretation Comments HEMOGLOBIN A1c (test code = 62060) 6.8 % LIPID [id number] 00:00:00 Test Item Value Reference Range Interpretation Comments CHOLESTEROL (test code = 2210) 303 MG/DL TRIGLYCERIDES (test code = 2232) 191 MG/DL HDL CHOLESTEROL (test code = 2220) 61 MG/DL CALC LDL CHOL (test code = 2237) 205 MG/DL RISK RATIO LDL/HDL (test code = 3.36 RATIO 2238) LIPID [id number] 00:00:00 Test Item Value Reference Range Interpretation Comments CHOLESTEROL (test code = 2210) 303 MG/DL TRIGLYCERIDES (test code = 2232) 191 MG/DL HDL CHOLESTEROL (test code = 2220) 61 MG/DL CALC LDL CHOL (test code = 2237) 205 MG/DL RISK RATIO LDL/HDL (test code = 3.36 RATIO 2238) [id number] 00:00:00 Test Item Value Reference Range Interpretation Comments TSH, THIRD GENERATION (test code 0.769 UIU/ML = 2821) [id number] 00:00:00 Test Item Value Reference Range Interpretation Comments TSH, THIRD GENERATION (test code 0.769 UIU/ML = 2821) [id number] 00:00:00 Test Item Value Reference Range Interpretation Comments TSH, THIRD GENERATION (test code 0.769 UIU/ML = 2821) COMPREHENSIVE METABOLIC [id number] 00:00:00 Test Item Value Reference Range Interpretation Comments GLUCOSE (test code = 2217) 131 MG/DL BUN (test code = 2208) 13 MG/DL CREATININE (test code = 2214) 0.65 MG/DL eGFR AMER. (test code 113 ML/MIN/1.73 = 77295) eGFR NON- AMER. (test 97 ML/MIN/1.73 code = 60680) CALC BUN/CREAT (test code = 20 RATIO [...] code = 2219) 23 U/L COMPREHENSIVE METABOLIC [id number] 00:00:00 Test Item Value Reference Range Interpretation Comments GLUCOSE (test code = 2217) 131 MG/DL BUN (test code = 2208) 13 MG/DL CREATININE (test code = 2214) 0.65 MG/DL eGFR AMER. (test code 113 ML/MIN/1.73 = 91531) eGFR NON- AMER. (test 97 ML/MIN/1.73 code = 86113) CALC BUN/CREAT (test code = 20 RATIO [...] (test code = 2219) 23 U/L HEMOGLOBIN [id number] 00:00:00 Test Item Value Reference Range Interpretation Comments HEMOGLOBIN A1c (test code = 97784) 6.8 % HEMOGLOBIN [id number] 00:00:00 Test Item Value Reference Range Interpretation Comments HEMOGLOBIN A1c (test code = 29330) 6.8 % HEMOGLOBIN [id number] 00:00:00 Test Item Value Reference Range Interpretation Comments HEMOGLOBIN A1c (test code = 33472) 6.8 % LIPID [id number] 00:00:00 Test Item Value Reference Range Interpretation Comments CHOLESTEROL (test code = 2210) 303 MG/DL TRIGLYCERIDES (test code = 2232) 191 MG/DL HDL CHOLESTEROL (test code = 2220) 61 MG/DL CALC LDL CHOL (test code = 2237) 205 MG/DL RISK RATIO LDL/HDL (test code = 3.36 RATIO 2238) LIPID [id number] 00:00:00 Test Item Value Reference Range Interpretation Comments CHOLESTEROL (test code = 2210) 303 MG/DL TRIGLYCERIDES (test code = 2232) 191 MG/DL HDL CHOLESTEROL (test code = 2220) 61 MG/DL CALC LDL CHOL (test code = 2237) 205 MG/DL RISK RATIO LDL/HDL (test code = 3.36 RATIO 2238) [id number] 00:00:00 Test Item Value Reference Range Interpretation Comments TSH, THIRD GENERATION (test code 0.769 UIU/ML = 2821) [id number] 00:00:00 Test Item Value Reference Range Interpretation Comments TSH, THIRD GENERATION (test code 0.769 UIU/ML = 2821) [id number] 00:00:00 Test Item Value Reference Range Interpretation Comments TSH, THIRD GENERATION (test code 0.769 UIU/ML = 2821) COMPREHENSIVE METABOLIC [id number] 00:00:00 Test Item Value Reference Range Interpretation Comments GLUCOSE (test code = 2217) 131 MG/DL BUN (test code = 2208) 13 MG/DL CREATININE (test code = 2214) 0.65 MG/DL eGFR AMER. (test code 113 ML/MIN/1.73 = 19312) eGFR NON- AMER. (test 97 ML/MIN/1.73 code = 99367) CALC BUN/CREAT (test code = 20 RATIO [...] code = 2219) 23 U/L COMPREHENSIVE METABOLIC [id number] 00:00:00 Test Item Value Reference Range Interpretation Comments GLUCOSE (test code = 2217) 131 MG/DL BUN (test code = 2208) 13 MG/DL CREATININE (test code = 2214) 0.65 MG/DL eGFR AMER. (test code 113 ML/MIN/1.73 = 12726) eGFR NON- AMER. (test 97 ML/MIN/1.73 code = 75102) CALC BUN/CREAT (test code = 20 RATIO [...] (test code = 2219) 23 U/L HEMOGLOBIN [id number] 00:00:00 Test Item Value Reference Range Interpretation Comments HEMOGLOBIN A1c (test code = 13267) 6.8 % HEMOGLOBIN [id number] 00:00:00 Test Item Value Reference Range Interpretation Comments HEMOGLOBIN A1c (test code = 37630) 6.8 % LIPID [id number] 00:00:00 Test Item Value Reference Range Interpretation Comments CHOLESTEROL (test code = 2210) 303 MG/DL TRIGLYCERIDES (test code = 2232) 191 MG/DL HDL CHOLESTEROL (test code = 2220) 61 MG/DL CALC LDL CHOL (test code = 2237) 205 MG/DL RISK RATIO LDL/HDL (test code = 3.36 RATIO 2238) [id number] 00:00:00 Test Item Value Reference Range Interpretation Comments TSH, THIRD GENERATION (test code 0.769 UIU/ML = 2821) [id number] 00:00:00 Test Item Value Reference Range Interpretation Comments TSH, THIRD GENERATION (test code 0.769 UIU/ML = 2821) COMPREHENSIVE METABOLIC [id number] 00:00:00 Test Item Value Reference Range Interpretation Comments GLUCOSE (test code = 2217) 131 MG/DL BUN (test code = 2208) 13 MG/DL CREATININE (test code = 2214) 0.65 MG/DL eGFR AMER. (test code 113 ML/MIN/1.73 = 54609) eGFR NON- AMER. (test 97 ML/MIN/1.73 code = 37987) CALC BUN/CREAT (test code = 20 RATIO [...] (test code = 2219) 23 U/L HEMOGLOBIN [id number] 00:00:00 Test Item Value Reference Range Interpretation Comments HEMOGLOBIN A1c (test code = 96170) 6.8 % HEMOGLOBIN [id number] 00:00:00 Test Item Value Reference Range Interpretation Comments HEMOGLOBIN A1c (test code = 39100) 6.8 % HEMOGLOBIN [id number] 00:00:00 Test Item Value Reference Range Interpretation Comments HEMOGLOBIN A1c (test code = 35259) 6.8 % LIPID [id number] 00:00:00 Test Item Value Reference Range Interpretation Comments CHOLESTEROL (test code = 2210) 303 MG/DL TRIGLYCERIDES (test code = 2232) 191 MG/DL HDL CHOLESTEROL (test code = 2220) 61 MG/DL CALC LDL CHOL (test code = 2237) 205 MG/DL RISK RATIO LDL/HDL (test code = 3.36 RATIO 2238) LIPID [id number] 00:00:00 Test Item Value Reference Range Interpretation Comments CHOLESTEROL (test code = 2210) 303 MG/DL TRIGLYCERIDES (test code = 2232) 191 MG/DL HDL CHOLESTEROL (test code = 2220) 61 MG/DL CALC LDL CHOL (test code = 2237) 205 MG/DL RISK RATIO LDL/HDL (test code = 3.36 RATIO 2238) [id number] 00:00:00 Test Item Value Reference Range Interpretation Comments TSH, THIRD GENERATION (test code 0.769 UIU/ML = 2821) [id number] 00:00:00 Test Item Value Reference Range Interpretation Comments TSH, THIRD GENERATION (test code 0.769 UIU/ML = 2821) [id number] 00:00:00 Test Item Value Reference Range Interpretation Comments TSH, THIRD GENERATION (test code 0.769 UIU/ML = 2821) COMPREHENSIVE METABOLIC [id number] 00:00:00 Test Item Value Reference Range Interpretation Comments GLUCOSE (test code = 2217) 131 MG/DL BUN (test code = 2208) 13 MG/DL CREATININE (test code = 2214) 0.65 MG/DL eGFR AMER. (test code 113 ML/MIN/1.73 = 11904) eGFR NON- AMER. (test 97 ML/MIN/1.73 code = 15584) CALC BUN/CREAT (test code = 20 RATIO [...] code = 2219) 23 U/L COMPREHENSIVE METABOLIC [id number] 00:00:00 Test Item Value Reference Range Interpretation Comments GLUCOSE (test code = 2217) 131 MG/DL BUN (test code = 2208) 13 MG/DL CREATININE (test code = 2214) 0.65 MG/DL eGFR AMER. (test code 113 ML/MIN/1.73 = 68657) eGFR NON- AMER. (test 97 ML/MIN/1.73 code = 14121) CALC BUN/CREAT (test code = 20 RATIO [...] (test code = 2219) 23 U/L HEMOGLOBIN [id number] 00:00:00 Test Item Value Reference Range Interpretation Comments HEMOGLOBIN A1c (test code = 28047) 6.6 % HEMOGLOBIN [id number] 00:00:00 Test Item Value Reference Range Interpretation Comments HEMOGLOBIN A1c (test code = 76940) 6.6 % HEMOGLOBIN [id number] 00:00:00 Test Item Value Reference Range Interpretation Comments HEMOGLOBIN A1c (test code = 05465) 6.6 % LIPID [id number] 00:00:00 Test Item Value Reference Range Interpretation Comments CHOLESTEROL (test code = 2210) 261 MG/DL TRIGLYCERIDES (test code = 2232) 159 MG/DL HDL CHOLESTEROL (test code = 2220) 82 MG/DL CALC LDL CHOL (test code = 2237) 150 MG/DL RISK RATIO LDL/HDL (test code = 1.83 RATIO 2238) LIPID [id number] 00:00:00 Test Item Value Reference Range Interpretation Comments CHOLESTEROL (test code = 2210) 261 MG/DL TRIGLYCERIDES (test code = 2232) 159 MG/DL HDL CHOLESTEROL (test code = 2220) 82 MG/DL CALC LDL CHOL (test code = 2237) 150 MG/DL RISK RATIO LDL/HDL (test code = 1.83 RATIO 2238) COMPREHENSIVE METABOLIC [id number] 00:00:00 Test Item Value Reference Range Interpretation Comments GLUCOSE (test code = 2217) 144 MG/DL BUN (test code = 2208) 15 MG/DL CREATININE (test code = 2214) 0.85 MG/DL eGFR AMER. (test code 87 ML/MIN/1.73 = 26285) eGFR NON- AMER. (test 75 ML/MIN/1.73 code = 92808) CALC BUN/CREAT (test code = 18 RATIO [...] code = 2219) 50 U/L COMPREHENSIVE METABOLIC [id number] 00:00:00 Test Item Value Reference Range Interpretation Comments GLUCOSE (test code = 2217) 144 MG/DL BUN (test code = 2208) 15 MG/DL CREATININE (test code = 2214) 0.85 MG/DL eGFR AMER. (test code 87 ML/MIN/1.73 = 20901) eGFR NON- AMER. (test 75 ML/MIN/1.73 code = 14386) CALC BUN/CREAT (test code = 18 RATIO [...] THYROX. BIND. CAPAC. (test code 1.1 = 88183) T4 (THYROXINE) (test code = 4.3 UG/DL 2819) CORRECTED T4 (FTI) (test code = 3.9 UG/DL 2820) TSH, THIRD GENERATION (test 18.900 UIU/ML code = 2821) THYROID II PROFILE (T3U, T4, T7, TSH)2020-05-23 00:00:00 Test Item Value Reference Range Interpretation Comments T-UPTAKE (test code = 2816) 30.2 % THYROX. BIND. CAPAC. (test code 1.1 = 90012) T4 (THYROXINE) (test code = 4.3 UG/DL 2819) CORRECTED T4 (FTI) (test code = 3.9 UG/DL 2820) TSH, THIRD GENERATION (test 18.900 UIU/ML code = 2821) HEMOGLOBIN [id number] 00:00:00 Test Item Value Reference Range Interpretation Comments HEMOGLOBIN A1c (test code = 27690) 6.6 % HEMOGLOBIN [id number] 00:00:00 Test Item Value Reference Range Interpretation Comments HEMOGLOBIN A1c (test code = 31390) 6.6 % HEMOGLOBIN [id number] 00:00:00 Test Item Value Reference Range Interpretation Comments HEMOGLOBIN A1c (test code = 63499) 6.6 % LIPID [id number] 00:00:00 Test Item Value Reference Range Interpretation Comments CHOLESTEROL (test code = 2210) 261 MG/DL TRIGLYCERIDES (test code = 2232) 159 MG/DL HDL CHOLESTEROL (test code = 2220) 82 MG/DL CALC LDL CHOL (test code = 2237) 150 MG/DL RISK RATIO LDL/HDL (test code = 1.83 RATIO 2238) LIPID [id number] 00:00:00 Test Item Value Reference Range Interpretation Comments CHOLESTEROL (test code = 2210) 261 MG/DL TRIGLYCERIDES (test code = 2232) 159 MG/DL HDL CHOLESTEROL (test code = 2220) 82 MG/DL CALC LDL CHOL (test code = 2237) 150 MG/DL RISK RATIO LDL/HDL (test code = 1.83 RATIO 2238) COMPREHENSIVE METABOLIC [id number] 00:00:00 Test Item Value Reference Range Interpretation Comments GLUCOSE (test code = 2217) 144 MG/DL BUN (test code = 2208) 15 MG/DL CREATININE (test code = 2214) 0.85 MG/DL eGFR AMER. (test code 87 ML/MIN/1.73 = 29977) eGFR NON- AMER. (test 75 ML/MIN/1.73 code = 11591) CALC BUN/CREAT (test code = 18 RATIO [...] code = 2219) 50 U/L COMPREHENSIVE METABOLIC [id number] 00:00:00 Test Item Value Reference Range Interpretation Comments GLUCOSE (test code = 2217) 144 MG/DL BUN (test code = 2208) 15 MG/DL CREATININE (test code = 2214) 0.85 MG/DL eGFR AMER. (test code 87 ML/MIN/1.73 = 07654) eGFR NON- AMER. (test 75 ML/MIN/1.73 code = 46897) CALC BUN/CREAT (test code = 18 RATIO [...] THYROX. BIND. CAPAC. (test code 1.1 = 22805) T4 (THYROXINE) (test code = 4.3 UG/DL 2819) CORRECTED T4 (FTI) (test code = 3.9 UG/DL 2820) TSH, THIRD GENERATION (test 18.900 UIU/ML code = 2821) THYROID II PROFILE (T3U, T4, T7, TSH)2020-05-23 00:00:00 Test Item Value Reference Range Interpretation Comments T-UPTAKE (test code = 2817) 30.2 % THYROX. BIND. CAPAC. (test code 1.1 = 60631) T4 (THYROXINE) (test code = 4.3 UG/DL 2819) CORRECTED T4 (FTI) (test code = 3.9 UG/DL 2820) TSH, THIRD GENERATION (test 18.900 UIU/ML code = 2821) HEMOGLOBIN [id number] 00:00:00 Test Item Value Reference Range Interpretation Comments HEMOGLOBIN A1c (test code = 16147) 6.6 % HEMOGLOBIN [id number] 00:00:00 Test Item Value Reference Range Interpretation Comments HEMOGLOBIN A1c (test code = 88045) 6.6 % LIPID [id number] 00:00:00 Test Item Value Reference Range Interpretation Comments CHOLESTEROL (test code = 2210) 261 MG/DL TRIGLYCERIDES (test code = 2232) 159 MG/DL HDL CHOLESTEROL (test code = 2220) 82 MG/DL CALC LDL CHOL (test code = 2237) 150 MG/DL RISK RATIO LDL/HDL (test code = 1.83 RATIO 2238) COMPREHENSIVE METABOLIC [id number] 00:00:00 Test Item Value Reference Range Interpretation Comments GLUCOSE (test code = 2217) 144 MG/DL BUN (test code = 2208) 15 MG/DL CREATININE (test code = 2214) 0.85 MG/DL eGFR AMER. (test code 87 ML/MIN/1.73 = 36382) eGFR NON- AMER. (test 75 ML/MIN/1.73 code = 84966) CALC BUN/CREAT (test code = 18 RATIO [...] THYROX. BIND. CAPAC. (test code 1.1 = 34401) T4 (THYROXINE) (test code = 4.3 UG/DL 2818) CORRECTED T4 (FTI) (test code = 3.9 UG/DL 2820) TSH, THIRD GENERATION (test 18.900 UIU/ML code = 2821) HEMOGLOBIN [id number] 00:00:00 Test Item Value Reference Range Interpretation Comments HEMOGLOBIN A1c (test code = 05625) 6.6 % HEMOGLOBIN [id number] 00:00:00 Test Item Value Reference Range Interpretation Comments HEMOGLOBIN A1c (test code = 49313) 6.6 % HEMOGLOBIN [id number] 00:00:00 Test Item Value Reference Range Interpretation Comments HEMOGLOBIN A1c (test code = 46548) 6.6 % LIPID [id number] 00:00:00 Test Item Value Reference Range Interpretation Comments CHOLESTEROL (test code = 2210) 261 MG/DL TRIGLYCERIDES (test code = 2232) 159 MG/DL HDL CHOLESTEROL (test code = 2220) 82 MG/DL CALC LDL CHOL (test code = 2237) 150 MG/DL RISK RATIO LDL/HDL (test code = 1.83 RATIO 2238) LIPID [id number] 00:00:00 Test Item Value Reference Range Interpretation Comments CHOLESTEROL (test code = 2210) 261 MG/DL TRIGLYCERIDES (test code = 2232) 159 MG/DL HDL CHOLESTEROL (test code = 2220) 82 MG/DL CALC LDL CHOL (test code = 2237) 150 MG/DL RISK RATIO LDL/HDL (test code = 1.83 RATIO 2238) COMPREHENSIVE METABOLIC [id number] 00:00:00 Test Item Value Reference Range Interpretation Comments GLUCOSE (test code = 2217) 144 MG/DL BUN (test code = 2208) 15 MG/DL CREATININE (test code = 2214) 0.85 MG/DL eGFR AMER. (test code 87 ML/MIN/1.73 = 73239) eGFR NON- AMER. (test 75 ML/MIN/1.73 code = 98473) CALC BUN/CREAT (test code = 18 RATIO [...] code = 2219) 50 U/L COMPREHENSIVE METABOLIC [id number] 00:00:00 Test Item Value Reference Range Interpretation Comments GLUCOSE (test code = 2217) 144 MG/DL BUN (test code = 2208) 15 MG/DL CREATININE (test code = 2214) 0.85 MG/DL eGFR AMER. (test code 87 ML/MIN/1.73 = 51633) eGFR NON- AMER. (test 75 ML/MIN/1.73 code = 31363) CALC BUN/CREAT (test code = 18 RATIO [...] THYROX. BIND. CAPAC. (test code 1.1 = 67048) T4 (THYROXINE) (test code = 4.3 UG/DL 2819) CORRECTED T4 (FTI) (test code = 3.9 UG/DL 2820) TSH, THIRD GENERATION (test 18.900 UIU/ML code = 2821) THYROID II PROFILE (T3U, T4, T7, TSH)2020-05-23 00:00:00 Test Item Value Reference Range Interpretation Comments T-UPTAKE (test code = 2817) 30.2 % THYROX. BIND. CAPAC. (test code 1.1 = 23265) T4 (THYROXINE) (test code = 4.3 UG/DL 2819) CORRECTED T4 (FTI) (test code = 3.9 UG/DL 2820) TSH, THIRD GENERATION (test 18.900 UIU/ML code = 2821) HEMOGLOBIN [id number] 00:00:00 Test Item Value Reference Range Interpretation Comments HEMOGLOBIN A1c (test code = 42303) 6.7 % HEMOGLOBIN [id number] 00:00:00 Test Item Value Reference Range Interpretation Comments HEMOGLOBIN A1c (test code = 13723) 6.7 % HEMOGLOBIN [id number] 00:00:00 Test Item Value Reference Range Interpretation Comments HEMOGLOBIN A1c (test code = 97921) 6.7 % LIPID [id number] 00:00:00 Test Item Value Reference Range Interpretation Comments CHOLESTEROL (test code = 2210) 267 MG/DL TRIGLYCERIDES (test code = 2232) 137 MG/DL HDL CHOLESTEROL (test code = 2220) 48 MG/DL CALC LDL CHOL (test code = 2237) 192 MG/DL RISK RATIO LDL/HDL (test code = 4.00 RATIO 2238) LIPID [id number] 00:00:00 Test Item Value Reference Range Interpretation Comments CHOLESTEROL (test code = 2210) 267 MG/DL TRIGLYCERIDES (test code = 2232) 137 MG/DL HDL CHOLESTEROL (test code = 2220) 48 MG/DL CALC LDL CHOL (test code = 2237) 192 MG/DL RISK RATIO LDL/HDL (test code = 4.00 RATIO 2238) COMPREHENSIVE METABOLIC [id number] 00:00:00 Test Item Value Reference Range Interpretation Comments GLUCOSE (test code = 2217) 155 MG/DL BUN (test code = 2208) 14 MG/DL CREATININE (test code = 2214) 0.52 MG/DL eGFR AMER. (test code 122 ML/MIN/1.73 = 68517) eGFR NON- AMER. (test 105 ML/MIN/1.73 code = 17159) CALC BUN/CREAT (test code = 27 RATIO [...] code = 2219) 27 U/L COMPREHENSIVE METABOLIC [id number] 00:00:00 Test Item Value Reference Range Interpretation Comments GLUCOSE (test code = 2217) 155 MG/DL BUN (test code = 2208) 14 MG/DL CREATININE (test code = 2214) 0.52 MG/DL eGFR AMER. (test code 122 ML/MIN/1.73 = 50368) eGFR NON- AMER. (test 105 ML/MIN/1.73 code = 77242) CALC BUN/CREAT (test code = 27 RATIO [...] THYROX. BIND. CAPAC. (test code 1.0 = 18663) T4 (THYROXINE) (test code = 4.7 UG/DL 2819) CORRECTED T4 (FTI) (test code = 4.7 UG/DL 2820) TSH, THIRD GENERATION (test code 0.201 UIU/ML = 2821) THYROID II PROFILE (T3U, T4, T7, TSH)2019 00:00:00 Test Item Value Reference Range Interpretation Comments T-UPTAKE (test code = 2817) 33.1 % THYROX. BIND. CAPAC. (test code 1.0 = 42125) T4 (THYROXINE) (test code = 4.7 UG/DL 2819) CORRECTED T4 (FTI) (test code = 4.7 UG/DL 2820) TSH, THIRD GENERATION (test code 0.201 UIU/ML = 2821) HEMOGLOBIN [id number] 00:00:00 Test Item Value Reference Range Interpretation Comments HEMOGLOBIN A1c (test code = 68738) 6.7 % HEMOGLOBIN [id number] 00:00:00 Test Item Value Reference Range Interpretation Comments HEMOGLOBIN A1c (test code = 93042) 6.7 % HEMOGLOBIN [id number] 00:00:00 Test Item Value Reference Range Interpretation Comments HEMOGLOBIN A1c (test code = 57042) 6.7 % LIPID [id number] 00:00:00 Test Item Value Reference Range Interpretation Comments CHOLESTEROL (test code = 2210) 267 MG/DL TRIGLYCERIDES (test code = 2232) 137 MG/DL HDL CHOLESTEROL (test code = 2220) 48 MG/DL CALC LDL CHOL (test code = 2237) 192 MG/DL RISK RATIO LDL/HDL (test code = 4.00 RATIO 2238) LIPID [id number] 00:00:00 Test Item Value Reference Range Interpretation Comments CHOLESTEROL (test code = 2210) 267 MG/DL TRIGLYCERIDES (test code = 2232) 137 MG/DL HDL CHOLESTEROL (test code = 2220) 48 MG/DL CALC LDL CHOL (test code = 2237) 192 MG/DL RISK RATIO LDL/HDL (test code = 4.00 RATIO 2238) COMPREHENSIVE METABOLIC [id number] 00:00:00 Test Item Value Reference Range Interpretation Comments GLUCOSE (test code = 2217) 155 MG/DL BUN (test code = 2208) 14 MG/DL CREATININE (test code = 2214) 0.52 MG/DL eGFR AMER. (test code 122 ML/MIN/1.73 = 82770) eGFR NON- AMER. (test 105 ML/MIN/1.73 code = 29014) CALC BUN/CREAT (test code = 27 RATIO [...] code = 2219) 27 U/L COMPREHENSIVE METABOLIC [id number] 00:00:00 Test Item Value Reference Range Interpretation Comments GLUCOSE (test code = 2217) 155 MG/DL BUN (test code = 2208) 14 MG/DL CREATININE (test code = 2214) 0.52 MG/DL eGFR AMER. (test code 122 ML/MIN/1.73 = 48001) eGFR NON- AMER. (test 105 ML/MIN/1.73 code = 34861) CALC BUN/CREAT (test code = 27 RATIO [...] THYROX. BIND. CAPAC. (test code 1.0 = 99267) T4 (THYROXINE) (test code = 4.7 UG/DL 2819) CORRECTED T4 (FTI) (test code = 4.7 UG/DL 2820) TSH, THIRD GENERATION (test code 0.201 UIU/ML = 2821) THYROID II PROFILE (T3U, T4, T7, TSH)2019 00:00:00 Test Item Value Reference Range Interpretation Comments T-UPTAKE (test code = 2817) 33.1 % THYROX. BIND. CAPAC. (test code 1.0 = 10027) T4 (THYROXINE) (test code = 4.7 UG/DL 2819) CORRECTED T4 (FTI) (test code = 4.7 UG/DL 2820) TSH, THIRD GENERATION (test code 0.201 UIU/ML = 2821) HEMOGLOBIN [id number] 00:00:00 Test Item Value Reference Range Interpretation Comments HEMOGLOBIN A1c (test code = 64059) 6.7 % HEMOGLOBIN [id number] 00:00:00 Test Item Value Reference Range Interpretation Comments HEMOGLOBIN A1c (test code = 74236) 6.7 % LIPID [id number] 00:00:00 Test Item Value Reference Range Interpretation Comments CHOLESTEROL (test code = 2210) 267 MG/DL TRIGLYCERIDES (test code = 2232) 137 MG/DL HDL CHOLESTEROL (test code = 2220) 48 MG/DL CALC LDL CHOL (test code = 2237) 192 MG/DL RISK RATIO LDL/HDL (test code = 4.00 RATIO 2238) COMPREHENSIVE METABOLIC [id number] 00:00:00 Test Item Value Reference Range Interpretation Comments GLUCOSE (test code = 2217) 155 MG/DL BUN (test code = 2208) 14 MG/DL CREATININE (test code = 2214) 0.52 MG/DL eGFR AMER. (test code 122 ML/MIN/1.73 = 53192) eGFR NON- AMER. (test 105 ML/MIN/1.73 code = 61081) CALC BUN/CREAT (test code = 27 RATIO [...] THYROX. BIND. CAPAC. (test code 1.0 = 93921) T4 (THYROXINE) (test code = 4.7 UG/DL 2819) CORRECTED T4 (FTI) (test code = 4.7 UG/DL 2820) TSH, THIRD GENERATION (test code 0.201 UIU/ML = 2821) HEMOGLOBIN [id number] 00:00:00 Test Item Value Reference Range Interpretation Comments HEMOGLOBIN A1c (test code = 34872) 6.7 % HEMOGLOBIN [id number] 00:00:00 Test Item Value Reference Range Interpretation Comments HEMOGLOBIN A1c (test code = 82522) 6.7 % HEMOGLOBIN [id number] 00:00:00 Test Item Value Reference Range Interpretation Comments HEMOGLOBIN A1c (test code = 21378) 6.7 % LIPID [id number] 00:00:00 Test Item Value Reference Range Interpretation Comments CHOLESTEROL (test code = 2210) 267 MG/DL TRIGLYCERIDES (test code = 2232) 137 MG/DL HDL CHOLESTEROL (test code = 2220) 48 MG/DL CALC LDL CHOL (test code = 2237) 192 MG/DL RISK RATIO LDL/HDL (test code = 4.00 RATIO 2238) LIPID [id number] 00:00:00 Test Item Value Reference Range Interpretation Comments CHOLESTEROL (test code = 2210) 267 MG/DL TRIGLYCERIDES (test code = 2232) 137 MG/DL HDL CHOLESTEROL (test code = 2220) 48 MG/DL CALC LDL CHOL (test code = 2237) 192 MG/DL RISK RATIO LDL/HDL (test code = 4.00 RATIO 2238) COMPREHENSIVE METABOLIC [id number] 00:00:00 Test Item Value Reference Range Interpretation Comments GLUCOSE (test code = 2217) 155 MG/DL BUN (test code = 2208) 14 MG/DL CREATININE (test code = 2214) 0.52 MG/DL eGFR AMER. (test code 122 ML/MIN/1.73 = 51116) eGFR NON- AMER. (test 105 ML/MIN/1.73 code = 76930) CALC BUN/CREAT (test code = 27 RATIO [...] code = 2219) 27 U/L COMPREHENSIVE METABOLIC [id number] 00:00:00 Test Item Value Reference Range Interpretation Comments GLUCOSE (test code = 2217) 155 MG/DL BUN (test code = 2208) 14 MG/DL CREATININE (test code = 2214) 0.52 MG/DL eGFR AMER. (test code 122 ML/MIN/1.73 = 28289) eGFR NON- AMER. (test 105 ML/MIN/1.73 code = 39485) CALC BUN/CREAT (test code = 27 RATIO [...] THYROX. BIND. CAPAC. (test code 1.0 = 31903) T4 (THYROXINE) (test code = 4.7 UG/DL 2819) CORRECTED T4 (FTI) (test code = 4.7 UG/DL 2820) TSH, THIRD GENERATION (test code 0.201 UIU/ML = 2821) THYROID II PROFILE (T3U, T4, T7, TSH)2019 00:00:00 Test Item Value Reference Range Interpretation Comments T-UPTAKE (test code = 2817) 33.1 % THYROX. BIND. CAPAC. (test code 1.0 = 77355) T4 (THYROXINE) (test code = 4.7 UG/DL 2819) CORRECTED T4 (FTI) (test code = 4.7 UG/DL 2820) TSH, THIRD GENERATION (test code 0.201 UIU/ML = 2821) SARS-CoV-2 (COVID-19) by RT-PCR (HIGH RISK)2019-09-18 00:00:00 Test Item Value Reference Range Interpretation Comments SARS-CoV-2 INTERPRETATION (test NEGATIVE code = 89258) SOURCE (test code = 19816) NOT SPECIFIED SARS-CoV-2 (COVID-19) by RT-PCR (HIGH RISK)2019-09-18 00:00:00 Test Item Value Reference Range Interpretation Comments SARS-CoV-2 INTERPRETATION (test NEGATIVE code = 38421) SOURCE (test code = 60293) NOT SPECIFIED SARS-CoV-2 (COVID-19) by RT-PCR (HIGH RISK)2019-09-18 00:00:00 Test Item Value Reference Range Interpretation Comments SARS-CoV-2 INTERPRETATION (test NEGATIVE code = 39877) SOURCE (test code = 29893) NOT SPECIFIED SARS-CoV-2 (COVID-19) by RT-PCR (HIGH RISK)2019-09-18 00:00:00 Test Item Value Reference Range Interpretation Comments SARS-CoV-2 INTERPRETATION (test NEGATIVE code = 43602) SOURCE (test code = 63798) NOT SPECIFIED SARS-CoV-2 (COVID-19) by RT-PCR (HIGH RISK)2019-09-18 00:00:00 Test Item Value Reference Range Interpretation Comments SARS-CoV-2 INTERPRETATION (test NEGATIVE code = 19970) SOURCE (test code = 17171) NOT SPECIFIED SARS-CoV-2 (COVID-19) by RT-PCR (HIGH RISK)2019-09-18 00:00:00 Test Item Value Reference Range Interpretation Comments SARS-CoV-2 INTERPRETATION (test NEGATIVE code = 08925) SOURCE (test code = 38260) NOT SPECIFIED SARS-CoV-2 (COVID-19) by RT-PCR (HIGH RISK)2019-09-18 00:00:00 Test Item Value Reference Range Interpretation Comments SARS-CoV-2 INTERPRETATION (test NEGATIVE code = 47733) SOURCE (test code = 17590) NOT SPECIFIED [id number] 00:00:00 Test Item Value Reference Range Interpretation Comments TSH, THIRD GENERATION (test code 2.490 UIU/ML = 2821) [id number] 00:00:00 Test Item Value Reference Range Interpretation Comments TSH, THIRD GENERATION (test code 2.490 UIU/ML = 2821) [id number] 00:00:00 Test Item Value Reference Range Interpretation Comments TSH, THIRD GENERATION (test code 2.490 UIU/ML = 2821) HEMOGLOBIN [id number] 00:00:00 Test Item Value Reference Range Interpretation Comments HEMOGLOBIN A1c (test code = 97699) 6.4 % HEMOGLOBIN [id number] 00:00:00 Test Item Value Reference Range Interpretation Comments HEMOGLOBIN A1c (test code = 52028) 6.4 % HEMOGLOBIN [id number] 00:00:00 Test Item Value Reference Range Interpretation Comments HEMOGLOBIN A1c (test code = 16537) 6.4 % COMPREHENSIVE METABOLIC [id number] 00:00:00 Test Item Value Reference Range Interpretation Comments GLUCOSE (test code = 2217) 206 MG/DL BUN (test code = 2208) 23 MG/DL CREATININE (test code = 2214) 0.67 MG/DL eGFR AMER. (test code 112 ML/MIN/1.73 = 99930) eGFR NON- AMER. (test 97 ML/MIN/1.73 code = 46982) CALC BUN/CREAT (test code = 34 RATIO [...] code = 2219) 25 U/L COMPREHENSIVE METABOLIC [id number] 00:00:00 Test Item Value Reference Range Interpretation Comments GLUCOSE (test code = 2217) 206 MG/DL BUN (test code = 2208) 23 MG/DL CREATININE (test code = 2214) 0.67 MG/DL eGFR AMER. (test code 112 ML/MIN/1.73 = 87137) eGFR NON- AMER. (test 97 ML/MIN/1.73 code = 90029) CALC BUN/CREAT (test code = 34 RATIO 2234) SODIUM (test code = 2231) 142 MEQ/L [...] ALT (test code = 2219) 25 U/L [id number] 00:00:00 Test Item Value Reference Range Interpretation Comments TSH, THIRD GENERATION (test code 2.490 UIU/ML = 2821) [id number] 00:00:00 Test Item Value Reference Range Interpretation Comments TSH, THIRD GENERATION (test code 2.490 UIU/ML = 2821) [id number] 00:00:00 Test Item Value Reference Range Interpretation Comments TSH, THIRD GENERATION (test code 2.490 UIU/ML = 2821) HEMOGLOBIN [id number] 00:00:00 Test Item Value Reference Range Interpretation Comments HEMOGLOBIN A1c (test code = 62533) 6.4 % HEMOGLOBIN [id number] 00:00:00 Test Item Value Reference Range Interpretation Comments HEMOGLOBIN A1c (test code = 44428) 6.4 % HEMOGLOBIN [id number] 00:00:00 Test Item Value Reference Range Interpretation Comments HEMOGLOBIN A1c (test code = 71887) 6.4 % COMPREHENSIVE METABOLIC [id number] 00:00:00 Test Item Value Reference Range Interpretation Comments GLUCOSE (test code = 2217) 206 MG/DL BUN (test code = 2208) 23 MG/DL CREATININE (test code = 2214) 0.67 MG/DL eGFR AMER. (test code 112 ML/MIN/1.73 = 30452) eGFR NON- AMER. (test 97 ML/MIN/1.73 code = 08902) CALC BUN/CREAT (test code = 34 RATIO [...] code = 2219) 25 U/L COMPREHENSIVE METABOLIC [id number] 00:00:00 Test Item Value Reference Range Interpretation Comments GLUCOSE (test code = 2217) 206 MG/DL BUN (test code = 2208) 23 MG/DL CREATININE (test code = 2214) 0.67 MG/DL eGFR AMER. (test code 112 ML/MIN/1.73 = 72550) eGFR NON- AMER. (test 97 ML/MIN/1.73 code = 24663) CALC BUN/CREAT (test code = 34 RATIO [...] ALT (test code = 2219) 25 U/L [id number] 00:00:00 Test Item Value Reference Range Interpretation Comments TSH, THIRD GENERATION (test code 2.490 UIU/ML = 2821) [id number] 00:00:00 Test Item Value Reference Range Interpretation Comments TSH, THIRD GENERATION (test code 2.490 UIU/ML = 2821) HEMOGLOBIN [id number] 00:00:00 Test Item Value Reference Range Interpretation Comments HEMOGLOBIN A1c (test code = 48371) 6.4 % HEMOGLOBIN [id number] 00:00:00 Test Item Value Reference Range Interpretation Comments HEMOGLOBIN A1c (test code = 95078) 6.4 % COMPREHENSIVE METABOLIC [id number] 00:00:00 Test Item Value Reference Range Interpretation Comments GLUCOSE (test code = 2217) 206 MG/DL BUN (test code = 2208) 23 MG/DL CREATININE (test code = 2214) 0.67 MG/DL eGFR AMER. (test code 112 ML/MIN/1.73 = 01923) eGFR NON- AMER. (test 97 ML/MIN/1.73 code = 14981) CALC BUN/CREAT (test code = 34 RATIO [...] ALT (test code = 2219) 25 U/L [id number] 00:00:00 Test Item Value Reference Range Interpretation Comments TSH, THIRD GENERATION (test code 2.490 UIU/ML = 2821) [id number] 00:00:00 Test Item Value Reference Range Interpretation Comments TSH, THIRD GENERATION (test code 2.490 UIU/ML = 2821) [id number] 00:00:00 Test Item Value Reference Range Interpretation Comments TSH, THIRD GENERATION (test code 2.490 UIU/ML = 2821) HEMOGLOBIN [id number] 00:00:00 Test Item Value Reference Range Interpretation Comments HEMOGLOBIN A1c (test code = 15767) 6.4 % HEMOGLOBIN [id number] 00:00:00 Test Item Value Reference Range Interpretation Comments HEMOGLOBIN A1c (test code = 24379) 6.4 % HEMOGLOBIN [id number] 00:00:00 Test Item Value Reference Range Interpretation Comments HEMOGLOBIN A1c (test code = 57802) 6.4 % COMPREHENSIVE METABOLIC [id number] 00:00:00 Test Item Value Reference Range Interpretation Comments GLUCOSE (test code = 2217) 206 MG/DL BUN (test code = 2208) 23 MG/DL CREATININE (test code = 2214) 0.67 MG/DL eGFR AMER. (test code 112 ML/MIN/1.73 = 38047) eGFR NON- AMER. (test 97 ML/MIN/1.73 code = 77691) CALC BUN/CREAT (test code = 34 RATIO [...] code = 2219) 25 U/L COMPREHENSIVE METABOLIC [id number] 00:00:00 Test Item Value Reference Range Interpretation Comments GLUCOSE (test code = 2217) 206 MG/DL BUN (test code = 2208) 23 MG/DL CREATININE (test code = 2214) 0.67 MG/DL eGFR AMER. (test code 112 ML/MIN/1.73 = 53874) eGFR NON- AMER. (test 97 ML/MIN/1.73 code = 28277) CALC BUN/CREAT (test code = 34 RATIO [...] = 2219) 25 U/L VAGINAL PATHOGENS DNA [id number] 00:00:00 Test Item Value Reference Range Interpretation Comments MARK SPECIES (test code = 38383) NEGATIVE G. VAGINALIS (test code = 82326) NEGATIVE T. VAGINALIS (test code = 54391) NEGATIVE VAGINAL PATHOGENS DNA [id number] 00:00:00 Test Item Value Reference Range Interpretation Comments MARK SPECIES (test code = 55359) NEGATIVE G. VAGINALIS (test code = 37437) NEGATIVE T. VAGINALIS (test code = 65672) NEGATIVE VAGINAL PATHOGENS DNA [id number] 00:00:00 Test Item Value Reference Range Interpretation Comments MARK SPECIES (test code = 70179) NEGATIVE G. VAGINALIS (test code = 82744) NEGATIVE T. VAGINALIS (test code = 57779) NEGATIVE VAGINAL PATHOGENS DNA [id number] 00:00:00 Test Item Value Reference Range Interpretation Comments MARK SPECIES (test code = 29241) NEGATIVE G. VAGINALIS (test code = 03758) NEGATIVE T. VAGINALIS (test code = 88860) NEGATIVE VAGINAL PATHOGENS DNA [id number] 00:00:00 Test Item Value Reference Range Interpretation Comments MARK SPECIES (test code = 31208) NEGATIVE G. VAGINALIS (test code = 99013) NEGATIVE T. VAGINALIS (test code = 32169) NEGATIVE VAGINAL PATHOGENS DNA [id number] 00:00:00 Test Item Value Reference Range Interpretation Comments MARK SPECIES (test code = ) NEGATIVE G. VAGINALIS (test code = 88094) NEGATIVE T. VAGINALIS (test code = 64221) NEGATIVE VAGINAL PATHOGENS DNA [id number] 00:00:00 Test Item Value Reference Range Interpretation Comments MARK SPECIES (test code = ) NEGATIVE G. VAGINALIS (test code = 08011) NEGATIVE T. VAGINALIS (test code = 61614) NEGATIVE HEMOGLOBIN A1c [ADDED]2018-12-01 00:00:00 Test Item Value Reference Range Interpretation Comments HEMOGLOBIN A1c (test code = 80878) 6.7 % HEMOGLOBIN A1c [ADDED]2018-12-01 00:00:00 Test Item Value Reference Range Interpretation Comments HEMOGLOBIN A1c (test code = 89535) 6.7 % HEMOGLOBIN A1c [ADDED]2018-12-01 00:00:00 Test Item Value Reference Range Interpretation Comments HEMOGLOBIN A1c (test code = 73492) 6.7 % COMPREHENSIVE METABOLIC PANEL [ADDED]2018-12-01 00:00:00 Test Item Value Reference Range Interpretation Comments GLUCOSE (test code = 2217) 136 MG/DL BUN (test code = 2208) 15 MG/DL CREATININE (test code = 2214) 0.64 MG/DL eGFR AMER. (test code 115 ML/MIN/1.73 = 03303) eGFR NON- AMER. (test 99 ML/MIN/1.73 code = 14002) CALC BUN/CREAT (test code = 23 RATIO [...] eGFR AMER. (test code 115 ML/MIN/1.73 = 94655) eGFR NON- AMER. (test 99 ML/MIN/1.73 code = 79818) CALC BUN/CREAT (test code = 23 RATIO [...] Interpretation Comments HEMOGLOBIN A1c (test code = 73211) 6.7 % HEMOGLOBIN A1c [ADDED]2018-12-01 00:00:00 Test Item Value Reference Range Interpretation Comments HEMOGLOBIN A1c (test code = 00251) 6.7 % HEMOGLOBIN A1c [ADDED]2018-12-01 00:00:00 Test Item Value Reference Range Interpretation Comments HEMOGLOBIN A1c (test code = 52423) 6.7 % COMPREHENSIVE METABOLIC PANEL [ADDED]2018-12-01 00:00:00 Test Item Value Reference Range Interpretation Comments GLUCOSE (test code = 2217) 136 MG/DL BUN (test code = 2208) 15 MG/DL CREATININE (test code = 2214) 0.64 MG/DL eGFR AMER. (test code 115 ML/MIN/1.73 = 02952) eGFR NON- AMER. (test 99 ML/MIN/1.73 code = 83039) CALC BUN/CREAT (test code = 23 RATIO [...] eGFR AMER. (test code 115 ML/MIN/1.73 = 38400) eGFR NON- AMER. (test 99 ML/MIN/1.73 code = 09669) CALC BUN/CREAT (test code = 23 RATIO [...] Interpretation Comments HEMOGLOBIN A1c (test code = 24517) 6.7 % HEMOGLOBIN A1c [ADDED]2018-12-01 00:00:00 Test Item Value Reference Range Interpretation Comments HEMOGLOBIN A1c (test code = 11998) 6.7 % COMPREHENSIVE METABOLIC PANEL [ADDED]2018-12-01 00:00:00 Test Item Value Reference Range Interpretation Comments GLUCOSE (test code = 2217) 136 MG/DL BUN (test code = 2208) 15 MG/DL CREATININE (test code = 2214) 0.64 MG/DL eGFR AMER. (test code 115 ML/MIN/1.73 = 07835) eGFR NON- AMER. (test 99 ML/MIN/1.73 code = 56604) CALC BUN/CREAT (test code = 23 RATIO [...] Interpretation Comments HEMOGLOBIN A1c (test code = 96337) 6.7 % HEMOGLOBIN A1c [ADDED]2018-12-01 00:00:00 Test Item Value Reference Range Interpretation Comments HEMOGLOBIN A1c (test code = 96344) 6.7 % HEMOGLOBIN A1c [ADDED]2018-12-01 00:00:00 Test Item Value Reference Range Interpretation Comments HEMOGLOBIN A1c (test code = 24802) 6.7 % COMPREHENSIVE METABOLIC PANEL [ADDED]2018-12-01 00:00:00 Test Item Value Reference Range Interpretation Comments GLUCOSE (test code = 2217) 136 MG/DL BUN (test code = 2208) 15 MG/DL CREATININE (test code = 2214) 0.64 MG/DL eGFR AMER. (test code 115 ML/MIN/1.73 = 24783) eGFR NON- AMER. (test 99 ML/MIN/1.73 code = 83194) CALC BUN/CREAT (test code = 23 RATIO [...] eGFR AMER. (test code 115 ML/MIN/1.73 = 47640) eGFR NON- AMER. (test 99 ML/MIN/1.73 code = 18819) CALC BUN/CREAT (test code = 23 RATIO [...] code 1.280 UIU/ML = 2821) CBC W/AUTO [id number] 00:00:00 Test Item Value Reference Range Interpretation [...] code = 1015) 346 K/UL CBC W/AUTO [id number] 00:00:00 Test Item Value Reference Range Interpretation [...] code = 1015) 346 K/UL CBC W/AUTO [id number] 00:00:00 Test Item Value Reference Range Interpretation [...] (test code = 1015) 346 K/UL HEMOGLOBIN [id number] 00:00:00 Test Item Value Reference Range Interpretation Comments HEMOGLOBIN A1c (test code = 85433) 5.9 % HEMOGLOBIN [id number] 00:00:00 Test Item Value Reference Range Interpretation Comments HEMOGLOBIN A1c (test code = 99352) 5.9 % HEMOGLOBIN [id number] 00:00:00 Test Item Value Reference Range Interpretation Comments HEMOGLOBIN A1c (test code = 35424) 5.9 % LIPID [id number] 00:00:00 Test Item Value Reference Range Interpretation Comments CHOLESTEROL (test code = 2210) 318 MG/DL TRIGLYCERIDES (test code = 2232) 263 MG/DL HDL CHOLESTEROL (test code = 2220) 51 MG/DL CALC LDL CHOL (test code = 2237) 214 MG/DL RISK RATIO LDL/HDL (test code = 4.20 RATIO 2238) LIPID [id number] 00:00:00 Test Item Value Reference Range Interpretation Comments CHOLESTEROL (test code = 2210) 318 MG/DL TRIGLYCERIDES (test code = 2232) 263 MG/DL HDL CHOLESTEROL (test code = 2220) 51 MG/DL CALC LDL CHOL (test code = 2237) 214 MG/DL RISK RATIO LDL/HDL (test code = 4.20 RATIO 2238) COMPREHENSIVE METABOLIC [id number] 00:00:00 Test Item Value Reference Range Interpretation Comments GLUCOSE (test code = 2217) 113 MG/DL BUN (test code = 2208) 18 MG/DL CREATININE (test code = 2214) 0.70 MG/DL eGFR AMER. (test code 111 ML/MIN/1.73 = 08515) eGFR NON- AMER. (test 96 ML/MIN/1.73 code = 86756) CALC BUN/CREAT (test code = 26 RATIO [...] code = 2219) 31 U/L COMPREHENSIVE METABOLIC [id number] 00:00:00 Test Item Value Reference Range Interpretation Comments GLUCOSE (test code = 2217) 113 MG/DL BUN (test code = 2208) 18 MG/DL CREATININE (test code = 2214) 0.70 MG/DL eGFR AMER. (test code 111 ML/MIN/1.73 = 78199) eGFR NON- AMER. (test 96 ML/MIN/1.73 code = 77229) CALC BUN/CREAT (test code = 26 RATIO [...] ALT (test code = 2219) 31 U/L [id number] 00:00:00 Test Item Value Reference Range Interpretation Comments TSH, THIRD GENERATION (test code 2.520 UIU/ML = 2821) [id number] 00:00:00 Test Item Value Reference Range Interpretation Comments TSH, THIRD GENERATION (test code 2.520 UIU/ML = 2821) [id number] 00:00:00 Test Item Value Reference Range Interpretation Comments TSH, THIRD GENERATION (test code 2.520 UIU/ML = 2821) CBC W/AUTO [id number] 00:00:00 Test Item Value Reference Range Interpretation [...] code = 1015) 346 K/UL CBC W/AUTO [id number] 00:00:00 Test Item Value Reference Range Interpretation [...] code = 1015) 346 K/UL CBC W/AUTO [id number] 00:00:00 Test Item Value Reference Range Interpretation [...] (test code = 1015) 346 K/UL HEMOGLOBIN [id number] 00:00:00 Test Item Value Reference Range Interpretation Comments HEMOGLOBIN A1c (test code = 52144) 5.9 % HEMOGLOBIN [id number] 00:00:00 Test Item Value Reference Range Interpretation Comments HEMOGLOBIN A1c (test code = 70921) 5.9 % HEMOGLOBIN [id number] 00:00:00 Test Item Value Reference Range Interpretation Comments HEMOGLOBIN A1c (test code = 40576) 5.9 % LIPID [id number] 00:00:00 Test Item Value Reference Range Interpretation Comments CHOLESTEROL (test code = 2210) 318 MG/DL TRIGLYCERIDES (test code = 2232) 263 MG/DL HDL CHOLESTEROL (test code = 2220) 51 MG/DL CALC LDL CHOL (test code = 2237) 214 MG/DL RISK RATIO LDL/HDL (test code = 4.20 RATIO 2238) LIPID [id number] 00:00:00 Test Item Value Reference Range Interpretation Comments CHOLESTEROL (test code = 2210) 318 MG/DL TRIGLYCERIDES (test code = 2232) 263 MG/DL HDL CHOLESTEROL (test code = 2220) 51 MG/DL CALC LDL CHOL (test code = 2237) 214 MG/DL RISK RATIO LDL/HDL (test code = 4.20 RATIO 2238) COMPREHENSIVE METABOLIC [id number] 00:00:00 Test Item Value Reference Range Interpretation Comments GLUCOSE (test code = 2217) 113 MG/DL BUN (test code = 2208) 18 MG/DL CREATININE (test code = 2214) 0.70 MG/DL eGFR AMER. (test code 111 ML/MIN/1.73 = 93532) eGFR NON- AMER. (test 96 ML/MIN/1.73 code = 60664) CALC BUN/CREAT (test code = 26 RATIO [...] code = 2219) 31 U/L COMPREHENSIVE METABOLIC [id number] 00:00:00 Test Item Value Reference Range Interpretation Comments GLUCOSE (test code = 2217) 113 MG/DL BUN (test code = 2208) 18 MG/DL CREATININE (test code = 2214) 0.70 MG/DL eGFR AMER. (test code 111 ML/MIN/1.73 = 54819) eGFR NON- AMER. (test 96 ML/MIN/1.73 code = 67430) CALC BUN/CREAT (test code = 26 RATIO [...] ALT (test code = 2219) 31 U/L [id number] 00:00:00 Test Item Value Reference Range Interpretation Comments TSH, THIRD GENERATION (test code 2.520 UIU/ML = 2821) [id number] 00:00:00 Test Item Value Reference Range Interpretation Comments TSH, THIRD GENERATION (test code 2.520 UIU/ML = 2821) [id number] 00:00:00 Test Item Value Reference Range Interpretation Comments TSH, THIRD GENERATION (test code 2.520 UIU/ML = 2821) CBC W/AUTO [id number] 00:00:00 Test Item Value Reference Range Interpretation [...] code = 1015) 346 K/UL CBC W/AUTO [id number] 00:00:00 Test Item Value Reference Range Interpretation [...] (test code = 1015) 346 K/UL HEMOGLOBIN [id number] 00:00:00 Test Item Value Reference Range Interpretation Comments HEMOGLOBIN A1c (test code = 75231) 5.9 % HEMOGLOBIN [id number] 00:00:00 Test Item Value Reference Range Interpretation Comments HEMOGLOBIN A1c (test code = 97684) 5.9 % LIPID [id number] 00:00:00 Test Item Value Reference Range Interpretation Comments CHOLESTEROL (test code = 2210) 318 MG/DL TRIGLYCERIDES (test code = 2232) 263 MG/DL HDL CHOLESTEROL (test code = 2220) 51 MG/DL CALC LDL CHOL (test code = 2237) 214 MG/DL RISK RATIO LDL/HDL (test code = 4.20 RATIO 2238) COMPREHENSIVE METABOLIC [id number] 00:00:00 Test Item Value Reference Range Interpretation Comments GLUCOSE (test code = 2217) 113 MG/DL BUN (test code = 2208) 18 MG/DL CREATININE (test code = 2214) 0.70 MG/DL eGFR AMER. (test code 111 ML/MIN/1.73 = 65329) eGFR NON- AMER. (test 96 ML/MIN/1.73 code = 12385) CALC BUN/CREAT (test code = 26 RATIO [...] ALT (test code = 2219) 31 U/L [id number] 00:00:00 Test Item Value Reference Range Interpretation Comments TSH, THIRD GENERATION (test code 2.520 UIU/ML = 2821) [id number] 00:00:00 Test Item Value Reference Range Interpretation Comments TSH, THIRD GENERATION (test code 2.520 UIU/ML = 2821) CBC W/AUTO [id number] 00:00:00 Test Item Value Reference Range Interpretation [...] code = 1015) 346 K/UL CBC W/AUTO [id number] 00:00:00 Test Item Value Reference Range Interpretation [...] code = 1015) 346 K/UL CBC W/AUTO [id number] 00:00:00 Test Item Value Reference Range Interpretation [...] (test code = 1015) 346 K/UL HEMOGLOBIN [id number] 00:00:00 Test Item Value Reference Range Interpretation Comments HEMOGLOBIN A1c (test code = 55580) 5.9 % HEMOGLOBIN [id number] 00:00:00 Test Item Value Reference Range Interpretation Comments HEMOGLOBIN A1c (test code = 98785) 5.9 % HEMOGLOBIN [id number] 00:00:00 Test Item Value Reference Range Interpretation Comments HEMOGLOBIN A1c (test code = 85994) 5.9 % LIPID [id number] 00:00:00 Test Item Value Reference Range Interpretation Comments CHOLESTEROL (test code = 2210) 318 MG/DL TRIGLYCERIDES (test code = 2232) 263 MG/DL HDL CHOLESTEROL (test code = 2220) 51 MG/DL CALC LDL CHOL (test code = 2237) 214 MG/DL RISK RATIO LDL/HDL (test code = 4.20 RATIO 2238) LIPID [id number] 00:00:00 Test Item Value Reference Range Interpretation Comments CHOLESTEROL (test code = 2210) 318 MG/DL TRIGLYCERIDES (test code = 2232) 263 MG/DL HDL CHOLESTEROL (test code = 2220) 51 MG/DL CALC LDL CHOL (test code = 2237) 214 MG/DL RISK RATIO LDL/HDL (test code = 4.20 RATIO 2238) COMPREHENSIVE METABOLIC [id number] 00:00:00 Test Item Value Reference Range Interpretation Comments GLUCOSE (test code = 2217) 113 MG/DL BUN (test code = 2208) 18 MG/DL CREATININE (test code = 2214) 0.70 MG/DL eGFR AMER. (test code 111 ML/MIN/1.73 = 45792) eGFR NON- AMER. (test 96 ML/MIN/1.73 code = 38362) CALC BUN/CREAT (test code = 26 RATIO [...] code = 2219) 31 U/L COMPREHENSIVE METABOLIC [id number] 00:00:00 Test Item Value Reference Range Interpretation Comments GLUCOSE (test code = 2217) 113 MG/DL BUN (test code = 2208) 18 MG/DL CREATININE (test code = 2214) 0.70 MG/DL eGFR AMER. (test code 111 ML/MIN/1.73 = 14394) eGFR NON- AMER. (test 96 ML/MIN/1.73 code = 57355) CALC BUN/CREAT (test code = 26 RATIO [...] ALT (test code = 2219) 31 U/L [id number] 00:00:00 Test Item Value Reference Range Interpretation Comments TSH, THIRD GENERATION (test code 2.520 UIU/ML = 2821) [id number] 00:00:00 Test Item Value Reference Range Interpretation Comments TSH, THIRD GENERATION (test code 2.520 UIU/ML = 2821) [id number] 00:00:00 Test Item Value Reference Range Interpretation Comments TSH, THIRD GENERATION (test code 2.520 UIU/ML = 2821) CULTURE, [id number] 00:00:00 Test Item Value Reference Range Interpretation Comments CULTURE, URINE (test SPECIMEN NUMBER: code = 91901) [id number] CULTURE, [id number] 00:00:00 Test Item Value Reference Range Interpretation Comments CULTURE, URINE (test SPECIMEN NUMBER: code = 16032) [id number] CULTURE, [id number] 00:00:00 Test Item Value Reference Range Interpretation Comments CULTURE, URINE (test SPECIMEN NUMBER: code = 99086) [id number] CULTURE, [id number] 00:00:00 Test Item Value Reference Range Interpretation Comments CULTURE, URINE (test SPECIMEN NUMBER: code = 24504) [id number] CULTURE, [id number] 00:00:00 Test Item Value Reference Range Interpretation Comments CULTURE, URINE (test SPECIMEN NUMBER: code = 09025) [id number] CULTURE, [id number] 00:00:00 Test Item Value Reference Range Interpretation Comments CULTURE, URINE (test SPECIMEN NUMBER: code = 37427) [id number] CULTURE, [id number] 00:00:00 Test Item Value Reference Range Interpretation Comments CULTURE, URINE (test SPECIMEN NUMBER: code = 64289) [id number] CULTURE, [id number] 00:00:00 Test Item Value Reference Range Interpretation Comments CULTURE, URINE (test SPECIMEN NUMBER: code = 72428) [id number] CULTURE, [id number] 00:00:00 Test Item Value Reference Range Interpretation Comments CULTURE, URINE (test SPECIMEN NUMBER: code = 43598) [id number] CULTURE, [id number] 00:00:00 Test Item Value Reference Range Interpretation Comments CULTURE, URINE (test SPECIMEN NUMBER: code = 72609) [id number] CULTURE, [id number] 00:00:00 Test Item Value Reference Range Interpretation Comments CULTURE, URINE (test SPECIMEN NUMBER: code = 79103) [id number] CULTURE, [id number] 00:00:00 Test Item Value Reference Range Interpretation Comments CULTURE, URINE (test SPECIMEN NUMBER: code = 89568) [id number] CULTURE, [id number] 00:00:00 Test Item Value Reference Range Interpretation Comments CULTURE, URINE (test SPECIMEN NUMBER: code = 12858) [id number] CULTURE, [id number] 00:00:00 Test Item Value Reference Range Interpretation Comments CULTURE, URINE (test SPECIMEN NUMBER: code = 16011) [id number] BASIC METABOLIC [id number] 00:00:00 Test Item Value Reference Range Interpretation Comments GLUCOSE (test code = 2217) 135 MG/DL BUN (test code = 2208) 25 MG/DL CREATININE (test code = 2214) 0.76 MG/DL eGFR AMER. (test code 101 ML/MIN/1.73 = 08375) eGFR NON- AMER. (test 87 ML/MIN/1.73 code = 23697) SODIUM (test code = 2231) 139 MEQ/L POTASSIUM (test code = 2228) 4.7 MEQ/L CHLORIDE (test code = 2215) 99 MEQ/L CARBON DIOXIDE (test code = 26 MEQ/L 2206) CALCIUM (test code = 2209) 9.4 MG/DL BASIC METABOLIC [id number] 00:00:00 Test Item Value Reference Range Interpretation Comments GLUCOSE (test code = 2217) 135 MG/DL BUN (test code = 2208) 25 MG/DL CREATININE (test code = 2214) 0.76 MG/DL eGFR AMER. (test code 101 ML/MIN/1.73 = 37858) eGFR NON- AMER. (test 87 ML/MIN/1.73 code = 60989) SODIUM (test code = 2231) 139 MEQ/L POTASSIUM (test code = 2228) 4.7 MEQ/L CHLORIDE (test code = 2215) 99 MEQ/L CARBON DIOXIDE (test code = 26 MEQ/L 2206) CALCIUM (test code = 2209) 9.4 MG/DL LIPID [id number] 00:00:00 Test Item Value Reference Range Interpretation Comments CHOLESTEROL (test code = 2210) 262 MG/DL TRIGLYCERIDES (test code = 2232) 300 MG/DL HDL CHOLESTEROL (test code = 2220) 36 MG/DL CALC LDL CHOL (test code = 2237) 166 MG/DL RISK RATIO LDL/HDL (test code = 4.61 RATIO 2238) LIPID [id number] 00:00:00 Test Item Value Reference Range Interpretation Comments CHOLESTEROL (test code = 2210) 262 MG/DL TRIGLYCERIDES (test code = 2232) 300 MG/DL HDL CHOLESTEROL (test code = 2220) 36 MG/DL CALC LDL CHOL (test code = 2237) 166 MG/DL RISK RATIO LDL/HDL (test code = 4.61 RATIO 2238) HEMOGLOBIN [id number] 00:00:00 Test Item Value Reference Range Interpretation Comments HEMOGLOBIN A1c (test code = 77355) 6.2 % HEMOGLOBIN [id number] 00:00:00 Test Item Value Reference Range Interpretation Comments HEMOGLOBIN A1c (test code = 96439) 6.2 % HEMOGLOBIN [id number] 00:00:00 Test Item Value Reference Range Interpretation Comments HEMOGLOBIN A1c (test code = 48109) 6.2 % [id number] 00:00:00 Test Item Value Reference Range Interpretation Comments TSH, THIRD GENERATION (test code 0.988 UIU/ML = 2821) [id number] 00:00:00 Test Item Value Reference Range Interpretation Comments TSH, THIRD GENERATION (test code 0.988 UIU/ML = 2821) [id number] 00:00:00 Test Item Value Reference Range Interpretation Comments TSH, THIRD GENERATION (test code 0.988 UIU/ML = 2821) BASIC METABOLIC [id number] 00:00:00 Test Item Value Reference Range Interpretation Comments GLUCOSE (test code = 2217) 135 MG/DL BUN (test code = 2208) 25 MG/DL CREATININE (test code = 2214) 0.76 MG/DL eGFR AMER. (test code 101 ML/MIN/1.73 = 24989) eGFR NON- AMER. (test 87 ML/MIN/1.73 code = 57587) SODIUM (test code = 2231) 139 MEQ/L POTASSIUM (test code = 2228) 4.7 MEQ/L CHLORIDE (test code = 2215) 99 MEQ/L CARBON DIOXIDE (test code = 26 MEQ/L 2206) CALCIUM (test code = 2209) 9.4 MG/DL BASIC METABOLIC [id number] 00:00:00 Test Item Value Reference Range Interpretation Comments GLUCOSE (test code = 2217) 135 MG/DL BUN (test code = 2208) 25 MG/DL CREATININE (test code = 2214) 0.76 MG/DL eGFR AMER. (test code 101 ML/MIN/1.73 = 97624) eGFR NON- AMER. (test 87 ML/MIN/1.73 code = 38093) SODIUM (test code = 2231) 139 MEQ/L POTASSIUM (test code = 2228) 4.7 MEQ/L CHLORIDE (test code = 2215) 99 MEQ/L CARBON DIOXIDE (test code = 26 MEQ/L 2206) CALCIUM (test code = 2209) 9.4 MG/DL LIPID [id number] 00:00:00 Test Item Value Reference Range Interpretation Comments CHOLESTEROL (test code = 2210) 262 MG/DL TRIGLYCERIDES (test code = 2232) 300 MG/DL HDL CHOLESTEROL (test code = 2220) 36 MG/DL CALC LDL CHOL (test code = 2237) 166 MG/DL RISK RATIO LDL/HDL (test code = 4.61 RATIO 2238) LIPID [id number] 00:00:00 Test Item Value Reference Range Interpretation Comments CHOLESTEROL (test code = 2210) 262 MG/DL TRIGLYCERIDES (test code = 2232) 300 MG/DL HDL CHOLESTEROL (test code = 2220) 36 MG/DL CALC LDL CHOL (test code = 2237) 166 MG/DL RISK RATIO LDL/HDL (test code = 4.61 RATIO 2238) HEMOGLOBIN [id number] 00:00:00 Test Item Value Reference Range Interpretation Comments HEMOGLOBIN A1c (test code = 21380) 6.2 % HEMOGLOBIN [id number] 00:00:00 Test Item Value Reference Range Interpretation Comments HEMOGLOBIN A1c (test code = 12236) 6.2 % HEMOGLOBIN [id number] 00:00:00 Test Item Value Reference Range Interpretation Comments HEMOGLOBIN A1c (test code = 59787) 6.2 % [id number] 00:00:00 Test Item Value Reference Range Interpretation Comments TSH, THIRD GENERATION (test code 0.988 UIU/ML = 2821) [id number] 00:00:00 Test Item Value Reference Range Interpretation Comments TSH, THIRD GENERATION (test code 0.988 UIU/ML = 2821) [id number] 00:00:00 Test Item Value Reference Range Interpretation Comments TSH, THIRD GENERATION (test code 0.988 UIU/ML = 2821) BASIC METABOLIC [id number] 00:00:00 Test Item Value Reference Range Interpretation Comments GLUCOSE (test code = 2217) 135 MG/DL BUN (test code = 2208) 25 MG/DL CREATININE (test code = 2214) 0.76 MG/DL eGFR AMER. (test code 101 ML/MIN/1.73 = 35231) eGFR NON- AMER. (test 87 ML/MIN/1.73 code = 73477) SODIUM (test code = 2231) 139 MEQ/L POTASSIUM (test code = 2228) 4.7 MEQ/L CHLORIDE (test code = 2215) 99 MEQ/L CARBON DIOXIDE (test code = 26 MEQ/L 2206) CALCIUM (test code = 2209) 9.4 MG/DL LIPID [id number] 00:00:00 Test Item Value Reference Range Interpretation Comments CHOLESTEROL (test code = 2210) 262 MG/DL TRIGLYCERIDES (test code = 2232) 300 MG/DL HDL CHOLESTEROL (test code = 2220) 36 MG/DL CALC LDL CHOL (test code = 2237) 166 MG/DL RISK RATIO LDL/HDL (test code = 4.61 RATIO 2238) HEMOGLOBIN [id number] 00:00:00 Test Item Value Reference Range Interpretation Comments HEMOGLOBIN A1c (test code = 85520) 6.2 % HEMOGLOBIN [id number] 00:00:00 Test Item Value Reference Range Interpretation Comments HEMOGLOBIN A1c (test code = 43746) 6.2 % [id number] 00:00:00 Test Item Value Reference Range Interpretation Comments TSH, THIRD GENERATION (test code 0.988 UIU/ML = 2821) [id number] 00:00:00 Test Item Value Reference Range Interpretation Comments TSH, THIRD GENERATION (test code 0.988 UIU/ML = 2821) BASIC METABOLIC [id number] 00:00:00 Test Item Value Reference Range Interpretation Comments GLUCOSE (test code = 2217) 135 MG/DL BUN (test code = 2208) 25 MG/DL CREATININE (test code = 2214) 0.76 MG/DL eGFR AMER. (test code 101 ML/MIN/1.73 = 58317) eGFR NON- AMER. (test 87 ML/MIN/1.73 code = 41179) SODIUM (test code = 2231) 139 MEQ/L POTASSIUM (test code = 2228) 4.7 MEQ/L CHLORIDE (test code = 2215) 99 MEQ/L CARBON DIOXIDE (test code = 26 MEQ/L 2206) CALCIUM (test code = 2209) 9.4 MG/DL BASIC METABOLIC [id number] 00:00:00 Test Item Value Reference Range Interpretation Comments GLUCOSE (test code = 2217) 135 MG/DL BUN (test code = 2208) 25 MG/DL CREATININE (test code = 2214) 0.76 MG/DL eGFR AMER. (test code 101 ML/MIN/1.73 = 72804) eGFR NON- AMER. (test 87 ML/MIN/1.73 code = 71991) SODIUM (test code = 2231) 139 MEQ/L POTASSIUM (test code = 2228) 4.7 MEQ/L CHLORIDE (test code = 2215) 99 MEQ/L CARBON DIOXIDE (test code = 26 MEQ/L 2206) CALCIUM (test code = 2209) 9.4 MG/DL LIPID [id number] 00:00:00 Test Item Value Reference Range Interpretation Comments CHOLESTEROL (test code = 2210) 262 MG/DL TRIGLYCERIDES (test code = 2232) 300 MG/DL HDL CHOLESTEROL (test code = 2220) 36 MG/DL CALC LDL CHOL (test code = 2237) 166 MG/DL RISK RATIO LDL/HDL (test code = 4.61 RATIO 2238) LIPID [id number] 00:00:00 Test Item Value Reference Range Interpretation Comments CHOLESTEROL (test code = 2210) 262 MG/DL TRIGLYCERIDES (test code = 2232) 300 MG/DL HDL CHOLESTEROL (test code = 2220) 36 MG/DL CALC LDL CHOL (test code = 2237) 166 MG/DL RISK RATIO LDL/HDL (test code = 4.61 RATIO 2238) HEMOGLOBIN [id number] 00:00:00 Test Item Value Reference Range Interpretation Comments HEMOGLOBIN A1c (test code = 27016) 6.2 % HEMOGLOBIN [id number] 00:00:00 Test Item Value Reference Range Interpretation Comments HEMOGLOBIN A1c (test code = 70183) 6.2 % HEMOGLOBIN [id number] 00:00:00 Test Item Value Reference Range Interpretation Comments HEMOGLOBIN A1c (test code = 87789) 6.2 % [id number] 00:00:00 Test Item Value Reference Range Interpretation Comments TSH, THIRD GENERATION (test code 0.988 UIU/ML = 2821) [id number] 00:00:00 Test Item Value Reference Range Interpretation Comments TSH, THIRD GENERATION (test code 0.988 UIU/ML = 2821) [id number] 00:00:00 Test Item Value Reference Range Interpretation Comments TSH, THIRD GENERATION (test code 0.988 UIU/ML = 2821) COMPREHENSIVE METABOLIC [id number] 00:00:00 Test Item Value Reference Range Interpretation Comments GLUCOSE (test code = 2217) 109 MG/DL BUN (test code = 2208) 25 MG/DL CREATININE (test code = 2214) 0.78 MG/DL eGFR AMER. (test code 98 ML/MIN/1.73 = 36473) eGFR NON- AMER. (test 84 ML/MIN/1.73 code = 12922) CALC BUN/CREAT (test code = 32 RATIO [...] code = 2219) 25 U/L COMPREHENSIVE METABOLIC [id number] 00:00:00 Test Item Value Reference Range Interpretation Comments GLUCOSE (test code = 2217) 109 MG/DL BUN (test code = 2208) 25 MG/DL CREATININE (test code = 2214) 0.78 MG/DL eGFR AMER. (test code 98 ML/MIN/1.73 = 06301) eGFR NON- AMER. (test 84 ML/MIN/1.73 code = 04628) CALC BUN/CREAT (test code = 32 RATIO [...] (test code = 2219) 25 U/L LIPID [id number] 00:00:00 Test Item Value Reference Range Interpretation Comments CHOLESTEROL (test code = 2210) 295 MG/DL TRIGLYCERIDES (test code = 2232) 218 MG/DL HDL CHOLESTEROL (test code = 2220) 46 MG/DL CALC LDL CHOL (test code = 2237) 205 MG/DL RISK RATIO LDL/HDL (test code = 4.47 RATIO 2238) LIPID [id number] 00:00:00 Test Item Value Reference Range Interpretation Comments CHOLESTEROL (test code = 2210) 295 MG/DL TRIGLYCERIDES (test code = 2232) 218 MG/DL HDL CHOLESTEROL (test code = 2220) 46 MG/DL CALC LDL CHOL (test code = 2237) 205 MG/DL RISK RATIO LDL/HDL (test code = 4.47 RATIO 2238) HEMOGLOBIN [id number] 00:00:00 Test Item Value Reference Range Interpretation Comments HEMOGLOBIN A1c (test code = 08679) 7.0 % HEMOGLOBIN [id number] 00:00:00 Test Item Value Reference Range Interpretation Comments HEMOGLOBIN A1c (test code = 63287) 7.0 % HEMOGLOBIN [id number] 00:00:00 Test Item Value Reference Range Interpretation Comments HEMOGLOBIN A1c (test code = 79685) 7.0 % [id number] 00:00:00 Test Item Value Reference Range Interpretation Comments TSH, THIRD GENERATION (test code 0.565 UIU/ML = 2821) [id number] 00:00:00 Test Item Value Reference Range Interpretation Comments TSH, THIRD GENERATION (test code 0.565 UIU/ML = 2821) [id number] 00:00:00 Test Item Value Reference Range Interpretation Comments TSH, THIRD GENERATION (test code 0.565 UIU/ML = 2821) COMPREHENSIVE METABOLIC [id number] 00:00:00 Test Item Value Reference Range Interpretation Comments GLUCOSE (test code = 2217) 109 MG/DL BUN (test code = 2208) 25 MG/DL CREATININE (test code = 2214) 0.78 MG/DL eGFR AMER. (test code 98 ML/MIN/1.73 = 45429) eGFR NON- AMER. (test 84 ML/MIN/1.73 code = 78146) CALC BUN/CREAT (test code = 32 RATIO [...] code = 2219) 25 U/L COMPREHENSIVE METABOLIC [id number] 00:00:00 Test Item Value Reference Range Interpretation Comments GLUCOSE (test code = 2217) 109 MG/DL BUN (test code = 2208) 25 MG/DL CREATININE (test code = 2214) 0.78 MG/DL eGFR AMER. (test code 98 ML/MIN/1.73 = 40890) eGFR NON- AMER. (test 84 ML/MIN/1.73 code = 47384) CALC BUN/CREAT (test code = 32 RATIO [...] (test code = 2219) 25 U/L LIPID [id number] 00:00:00 Test Item Value Reference Range Interpretation Comments CHOLESTEROL (test code = 2210) 295 MG/DL TRIGLYCERIDES (test code = 2232) 218 MG/DL HDL CHOLESTEROL (test code = 2220) 46 MG/DL CALC LDL CHOL (test code = 2237) 205 MG/DL RISK RATIO LDL/HDL (test code = 4.47 RATIO 2238) LIPID [id number] 00:00:00 Test Item Value Reference Range Interpretation Comments CHOLESTEROL (test code = 2210) 295 MG/DL TRIGLYCERIDES (test code = 2232) 218 MG/DL HDL CHOLESTEROL (test code = 2220) 46 MG/DL CALC LDL CHOL (test code = 2237) 205 MG/DL RISK RATIO LDL/HDL (test code = 4.47 RATIO 2238) HEMOGLOBIN [id number] 00:00:00 Test Item Value Reference Range Interpretation Comments HEMOGLOBIN A1c (test code = 52813) 7.0 % HEMOGLOBIN [id number] 00:00:00 Test Item Value Reference Range Interpretation Comments HEMOGLOBIN A1c (test code = 11477) 7.0 % HEMOGLOBIN [id number] 00:00:00 Test Item Value Reference Range Interpretation Comments HEMOGLOBIN A1c (test code = 93553) 7.0 % [id number] 00:00:00 Test Item Value Reference Range Interpretation Comments TSH, THIRD GENERATION (test code 0.565 UIU/ML = 2821) [id number] 00:00:00 Test Item Value Reference Range Interpretation Comments TSH, THIRD GENERATION (test code 0.565 UIU/ML = 2821) [id number] 00:00:00 Test Item Value Reference Range Interpretation Comments TSH, THIRD GENERATION (test code 0.565 UIU/ML = 2821) COMPREHENSIVE METABOLIC [id number] 00:00:00 Test Item Value Reference Range Interpretation Comments GLUCOSE (test code = 2217) 109 MG/DL BUN (test code = 2208) 25 MG/DL CREATININE (test code = 2214) 0.78 MG/DL eGFR AMER. (test code 98 ML/MIN/1.73 = 55658) eGFR NON- AMER. (test 84 ML/MIN/1.73 code = 93446) CALC BUN/CREAT (test code = 32 RATIO [...] (test code = 2219) 25 U/L LIPID [id number] 00:00:00 Test Item Value Reference Range Interpretation Comments CHOLESTEROL (test code = 2210) 295 MG/DL TRIGLYCERIDES (test code = 2232) 218 MG/DL HDL CHOLESTEROL (test code = 2220) 46 MG/DL CALC LDL CHOL (test code = 2237) 205 MG/DL RISK RATIO LDL/HDL (test code = 4.47 RATIO 2238) HEMOGLOBIN [id number] 00:00:00 Test Item Value Reference Range Interpretation Comments HEMOGLOBIN A1c (test code = 96946) 7.0 % HEMOGLOBIN [id number] 00:00:00 Test Item Value Reference Range Interpretation Comments HEMOGLOBIN A1c (test code = 40909) 7.0 % [id number] 00:00:00 Test Item Value Reference Range Interpretation Comments TSH, THIRD GENERATION (test code 0.565 UIU/ML = 2821) [id number] 00:00:00 Test Item Value Reference Range Interpretation Comments TSH, THIRD GENERATION (test code 0.565 UIU/ML = 2821) COMPREHENSIVE METABOLIC [id number] 00:00:00 Test Item Value Reference Range Interpretation Comments GLUCOSE (test code = 2217) 109 MG/DL BUN (test code = 2208) 25 MG/DL CREATININE (test code = 2214) 0.78 MG/DL eGFR AMER. (test code 98 ML/MIN/1.73 = 60428) eGFR NON- AMER. (test 84 ML/MIN/1.73 code = 39388) CALC BUN/CREAT (test code = 32 RATIO [...] code = 2219) 25 U/L COMPREHENSIVE METABOLIC [id number] 00:00:00 Test Item Value Reference Range Interpretation Comments GLUCOSE (test code = 2217) 109 MG/DL BUN (test code = 2208) 25 MG/DL CREATININE (test code = 2214) 0.78 MG/DL eGFR AMER. (test code 98 ML/MIN/1.73 = 54305) eGFR NON- AMER. (test 84 ML/MIN/1.73 code = 57961) CALC BUN/CREAT (test code = 32 RATIO [...] (test code = 2219) 25 U/L LIPID [id number] 00:00:00 Test Item Value Reference Range Interpretation Comments CHOLESTEROL (test code = 2210) 295 MG/DL TRIGLYCERIDES (test code = 2232) 218 MG/DL HDL CHOLESTEROL (test code = 2220) 46 MG/DL CALC LDL CHOL (test code = 2237) 205 MG/DL RISK RATIO LDL/HDL (test code = 4.47 RATIO 2238) LIPID [id number] 00:00:00 Test Item Value Reference Range Interpretation Comments CHOLESTEROL (test code = 2210) 295 MG/DL TRIGLYCERIDES (test code = 2232) 218 MG/DL HDL CHOLESTEROL (test code = 2220) 46 MG/DL CALC LDL CHOL (test code = 2237) 205 MG/DL RISK RATIO LDL/HDL (test code = 4.47 RATIO 2238) HEMOGLOBIN [id number] 00:00:00 Test Item Value Reference Range Interpretation Comments HEMOGLOBIN A1c (test code = 07654) 7.0 % HEMOGLOBIN [id number] 00:00:00 Test Item Value Reference Range Interpretation Comments HEMOGLOBIN A1c (test code = 21022) 7.0 % HEMOGLOBIN [id number] 00:00:00 Test Item Value Reference Range Interpretation Comments HEMOGLOBIN A1c (test code = 43784) 7.0 % [id number] 00:00:00 Test Item Value Reference Range Interpretation Comments TSH, THIRD GENERATION (test code 0.565 UIU/ML = 2821) [id number] 00:00:00 Test Item Value Reference Range Interpretation Comments TSH, THIRD GENERATION (test code 0.565 UIU/ML = 2821) [id number] 00:00:00 Test Item Value Reference Range Interpretation Comments TSH, THIRD GENERATION (test code 0.565 UIU/ML = 2821) [id number] 00:00:00 Test Item Value Reference Range Interpretation Comments TSH, THIRD GENERATION (test code 0.379 UIU/ML = 2821) [id number] 00:00:00 Test Item Value Reference Range Interpretation Comments TSH, THIRD GENERATION (test code 0.379 UIU/ML = 2821) [id number] 00:00:00 Test Item Value Reference Range Interpretation Comments TSH, THIRD GENERATION (test code 0.379 UIU/ML = 2821) [id number] 00:00:00 Test Item Value Reference Range Interpretation Comments TSH, THIRD GENERATION (test code 0.379 UIU/ML = 2821) [id number] 00:00:00 Test Item Value Reference Range Interpretation Comments TSH, THIRD GENERATION (test code 0.379 UIU/ML = 2821) [id number] 00:00:00 Test Item Value Reference Range Interpretation Comments TSH, THIRD GENERATION (test code 0.379 UIU/ML = 2821) [id number] 00:00:00 Test Item Value Reference Range Interpretation Comments TSH, THIRD GENERATION (test code 0.379 UIU/ML = 2821) [id number] 00:00:00 Test Item Value Reference Range Interpretation Comments TSH, THIRD GENERATION (test code 0.379 UIU/ML = 2821) [id number] 00:00:00 Test Item Value Reference Range Interpretation Comments TSH, THIRD GENERATION (test code 0.379 UIU/ML = 2821) [id number] 00:00:00 Test Item Value Reference Range Interpretation Comments TSH, THIRD GENERATION (test code 0.379 UIU/ML = 2821) [id number] 00:00:00 Test Item Value Reference Range Interpretation Comments TSH, THIRD GENERATION (test code 0.379 UIU/ML = 2821) CULTURE, [id number] 00:00:00 Test Item Value Reference Range Interpretation Comments CULTURE, URINE (test SPECIMEN NUMBER: code = 08481) [id number] CULTURE, [id number] 00:00:00 Test Item Value Reference Range Interpretation Comments CULTURE, URINE (test SPECIMEN NUMBER: code = 64901) [id number] CULTURE, [id number] 00:00:00 Test Item Value Reference Range Interpretation Comments CULTURE, URINE (test SPECIMEN NUMBER: code = 27966) [id number] CULTURE, [id number] 00:00:00 Test Item Value Reference Range Interpretation Comments CULTURE, URINE (test SPECIMEN NUMBER: code = 22306) [id number] CULTURE, [id number] 00:00:00 Test Item Value Reference Range Interpretation Comments CULTURE, URINE (test SPECIMEN NUMBER: code = 19700) [id number] CULTURE, [id number] 00:00:00 Test Item Value Reference Range Interpretation Comments CULTURE, URINE (test SPECIMEN NUMBER: code = 38454) [id number] CULTURE, [id number] 00:00:00 Test Item Value Reference Range Interpretation Comments CULTURE, URINE (test SPECIMEN NUMBER: code = 07587) [id number] COMPREHENSIVE METABOLIC [id number] 00:00:00 Test Item Value Reference Range Interpretation Comments GLUCOSE (test code = 2217) 128 MG/DL BUN (test code = 2208) 26 MG/DL CREATININE (test code = 2214) 0.92 MG/DL eGFR AMER. (test code 81 ML/MIN/1.73 = 96651) eGFR NON- AMER. (test 70 ML/MIN/1.73 code = 21084) CALC BUN/CREAT (test code = 28 RATIO [...] code = 2219) 29 U/L COMPREHENSIVE METABOLIC [id number] 00:00:00 Test Item Value Reference Range Interpretation Comments GLUCOSE (test code = 2217) 128 MG/DL BUN (test code = 2208) 26 MG/DL CREATININE (test code = 2214) 0.92 MG/DL eGFR AMER. (test code 81 ML/MIN/1.73 = 67712) eGFR NON- AMER. (test 70 ML/MIN/1.73 code = 96279) CALC BUN/CREAT (test code = 28 RATIO [...] code = 2219) 29 U/L ACUTE HEPATITIS [id number] 00:00:00 Test Item Value Reference Range Interpretation Comments HEPATITIS A IgM (test code = NON-REACTIVE 38377) HEPATITIS B CORE IgM (test code NON-REACTIVE = 4644) HEPATITIS B SURF AG (test code = NON-REACTIVE 2739) HEPATITIS C ANTIBODY (test code NON-REACTIVE = 4675) INTERPRETATION HEPATITIS A: (NOTE) (test code = 2552) INTERPRETATION HEPATITIS B: (NOTE) (test code = 17088) INTERPRETATION HEPATITIS C: (NOTE) (test code = 75099) ACUTE HEPATITIS [id number] 00:00:00 Test Item Value Reference Range Interpretation Comments HEPATITIS A IgM (test code = NON-REACTIVE 68219) HEPATITIS B CORE IgM (test code NON-REACTIVE = 4644) HEPATITIS B SURF AG (test code = NON-REACTIVE 2739) HEPATITIS C ANTIBODY (test code NON-REACTIVE = 4675) INTERPRETATION HEPATITIS A: (NOTE) (test code = 2552) INTERPRETATION HEPATITIS B: (NOTE) (test code = 85652) INTERPRETATION HEPATITIS C: (NOTE) (test code = 07524) [id number] 00:00:00 Test Item Value Reference Range Interpretation Comments AMYLASE (test code = 2205) 32 U/L [id number] 00:00:00 Test Item Value Reference Range Interpretation Comments AMYLASE (test code = 2205) 32 U/L [id number] 00:00:00 Test Item Value Reference Range Interpretation Comments LIPASE (test code = 2058) 22 U/L [id number] 00:00:00 Test Item Value Reference Range Interpretation Comments LIPASE (test code = 2058) 22 U/L [id number] 00:00:00 Test Item Value Reference Range Interpretation Comments LIPASE (test code = 2058) 22 U/L COMPREHENSIVE METABOLIC [id number] 00:00:00 Test Item Value Reference Range Interpretation Comments GLUCOSE (test code = 2217) 128 MG/DL BUN (test code = 2208) 26 MG/DL CREATININE (test code = 2214) 0.92 MG/DL eGFR AMER. (test code 81 ML/MIN/1.73 = 32122) eGFR NON- AMER. (test 70 ML/MIN/1.73 code = 96123) CALC BUN/CREAT (test code = 28 RATIO [...] code = 2219) 29 U/L COMPREHENSIVE METABOLIC [id number] 00:00:00 Test Item Value Reference Range Interpretation Comments GLUCOSE (test code = 2217) 128 MG/DL BUN (test code = 2208) 26 MG/DL CREATININE (test code = 2214) 0.92 MG/DL eGFR AMER. (test code 81 ML/MIN/1.73 = 20598) eGFR NON- AMER. (test 70 ML/MIN/1.73 code = 47021) CALC BUN/CREAT (test code = 28 RATIO [...] code = 2219) 29 U/L ACUTE HEPATITIS [id number] 00:00:00 Test Item Value Reference Range Interpretation Comments HEPATITIS A IgM (test code = NON-REACTIVE 94278) HEPATITIS B CORE IgM (test code NON-REACTIVE = 4644) HEPATITIS B SURF AG (test code = NON-REACTIVE 2739) HEPATITIS C ANTIBODY (test code NON-REACTIVE = 4675) INTERPRETATION HEPATITIS A: (NOTE) (test code = 2552) INTERPRETATION HEPATITIS B: (NOTE) (test code = 16900) INTERPRETATION HEPATITIS C: (NOTE) (test code = 47695) ACUTE HEPATITIS [id number] 00:00:00 Test Item Value Reference Range Interpretation Comments HEPATITIS A IgM (test code = NON-REACTIVE 06627) HEPATITIS B CORE IgM (test code NON-REACTIVE = 4644) HEPATITIS B SURF AG (test code = NON-REACTIVE 2739) HEPATITIS C ANTIBODY (test code NON-REACTIVE = 4675) INTERPRETATION HEPATITIS A: (NOTE) (test code = 2552) INTERPRETATION HEPATITIS B: (NOTE) (test code = 13414) INTERPRETATION HEPATITIS C: (NOTE) (test code = 58002) [id number] 00:00:00 Test Item Value Reference Range Interpretation Comments AMYLASE (test code = 2205) 32 U/L [id number] 00:00:00 Test Item Value Reference Range Interpretation Comments AMYLASE (test code = 2205) 32 U/L [id number] 00:00:00 Test Item Value Reference Range Interpretation Comments LIPASE (test code = 2058) 22 U/L [id number] 00:00:00 Test Item Value Reference Range Interpretation Comments LIPASE (test code = 2058) 22 U/L [id number] 00:00:00 Test Item Value Reference Range Interpretation Comments LIPASE (test code = 2058) 22 U/L COMPREHENSIVE METABOLIC [id number] 00:00:00 Test Item Value Reference Range Interpretation Comments GLUCOSE (test code = 2217) 128 MG/DL BUN (test code = 2208) 26 MG/DL CREATININE (test code = 2214) 0.92 MG/DL eGFR AMER. (test code 81 ML/MIN/1.73 = 40715) eGFR NON- AMER. (test 70 ML/MIN/1.73 code = 77717) CALC BUN/CREAT (test code = 28 RATIO [...] code = 2219) 29 U/L ACUTE HEPATITIS [id number] 00:00:00 Test Item Value Reference Range Interpretation Comments HEPATITIS A IgM (test code = NON-REACTIVE 75854) HEPATITIS B CORE IgM (test code NON-REACTIVE = 3746) HEPATITIS B SURF AG (test code = NON-REACTIVE 1513) HEPATITIS C ANTIBODY (test code NON-REACTIVE = 4622) INTERPRETATION HEPATITIS A: (NOTE) (test code = 2552) INTERPRETATION HEPATITIS B: (NOTE) (test code = 25438) INTERPRETATION HEPATITIS C: (NOTE) (test code = 79597) [id number] 00:00:00 Test Item Value Reference Range Interpretation Comments AMYLASE (test code = 2205) 32 U/L [id number] 00:00:00 Test Item Value Reference Range Interpretation Comments LIPASE (test code = 8) 22 U/L [id number] 00:00:00 Test Item Value Reference Range Interpretation Comments LIPASE (test code = 2058) 22 U/L COMPREHENSIVE METABOLIC [id number] 00:00:00 Test Item Value Reference Range Interpretation Comments GLUCOSE (test code = 2217) 128 MG/DL BUN (test code = 2208) 26 MG/DL CREATININE (test code = 2214) 0.92 MG/DL eGFR AMER. (test code 81 ML/MIN/1.73 = 99887) eGFR NON- AMER. (test 70 ML/MIN/1.73 code = 13811) CALC BUN/CREAT (test code = 28 RATIO [...] code = 2219) 29 U/L COMPREHENSIVE METABOLIC [id number] 00:00:00 Test Item Value Reference Range Interpretation Comments GLUCOSE (test code = 2217) 128 MG/DL BUN (test code = 2208) 26 MG/DL CREATININE (test code = 2214) 0.92 MG/DL eGFR AMER. (test code 81 ML/MIN/1.73 = 95317) eGFR NON- AMER. (test 70 ML/MIN/1.73 code = 54711) CALC BUN/CREAT (test code = 28 RATIO [...] code = 2219) 29 U/L ACUTE HEPATITIS [id number] 00:00:00 Test Item Value Reference Range Interpretation Comments HEPATITIS A IgM (test code = NON-REACTIVE 33979) HEPATITIS B CORE IgM (test code NON-REACTIVE = 4644) HEPATITIS B SURF AG (test code = NON-REACTIVE 2739) HEPATITIS C ANTIBODY (test code NON-REACTIVE = 4675) INTERPRETATION HEPATITIS A: (NOTE) (test code = 2552) INTERPRETATION HEPATITIS B: (NOTE) (test code = 99733) INTERPRETATION HEPATITIS C: (NOTE) (test code = 43241) ACUTE HEPATITIS [id number] 00:00:00 Test Item Value Reference Range Interpretation Comments HEPATITIS A IgM (test code = NON-REACTIVE 77336) HEPATITIS B CORE IgM (test code NON-REACTIVE = 4644) HEPATITIS B SURF AG (test code = NON-REACTIVE 2739) HEPATITIS C ANTIBODY (test code NON-REACTIVE = 4675) INTERPRETATION HEPATITIS A: (NOTE) (test code = 2552) INTERPRETATION HEPATITIS B: (NOTE) (test code = 22653) INTERPRETATION HEPATITIS C: (NOTE) (test code = 62937) [id number] 00:00:00 Test Item Value Reference Range Interpretation Comments AMYLASE (test code = 2205) 32 U/L [id number] 00:00:00 Test Item Value Reference Range Interpretation Comments AMYLASE (test code = 2205) 32 U/L [id number] 00:00:00 Test Item Value Reference Range Interpretation Comments LIPASE (test code = 2058) 22 U/L [id number] 00:00:00 Test Item Value Reference Range Interpretation Comments LIPASE (test code = 2058) 22 U/L [id number] 00:00:00 Test Item Value Reference Range Interpretation Comments LIPASE (test code = 2058) 22 U/L [id number] 00:00:00 Test Item Value Reference Range Interpretation Comments TSH, THIRD GENERATION (test code 4.890 UIU/ML = 2821) [id number] 00:00:00 Test Item Value Reference Range Interpretation Comments TSH, THIRD GENERATION (test code 4.890 UIU/ML = 2821) [id number] 00:00:00 Test Item Value Reference Range Interpretation Comments TSH, THIRD GENERATION (test code 4.890 UIU/ML = 2821) COMPREHENSIVE METABOLIC [id number] 00:00:00 Test Item Value Reference Range Interpretation Comments GLUCOSE (test code = 2217) 121 MG/DL BUN (test code = 2208) 40 MG/DL CREATININE (test code = 2214) 1.48 MG/DL eGFR AMER. (test code 45 ML/MIN/1.73 = 04256) eGFR NON- AMER. (test 39 ML/MIN/1.73 code = 61872) CALC BUN/CREAT (test code = 27 RATIO [...] code = 2219) 20 U/L COMPREHENSIVE METABOLIC [id number] 00:00:00 Test Item Value Reference Range Interpretation Comments GLUCOSE (test code = 2217) 121 MG/DL BUN (test code = 2208) 40 MG/DL CREATININE (test code = 2214) 1.48 MG/DL eGFR AMER. (test code 45 ML/MIN/1.73 = 45509) eGFR NON- AMER. (test 39 ML/MIN/1.73 code = 16655) CALC BUN/CREAT (test code = 27 RATIO [...] ALT (test code = 2219) 20 U/L [id number] 00:00:00 Test Item Value Reference Range Interpretation Comments TSH, THIRD GENERATION (test code 4.890 UIU/ML = 2821) [id number] 00:00:00 Test Item Value Reference Range Interpretation Comments TSH, THIRD GENERATION (test code 4.890 UIU/ML = 2821) [id number] 00:00:00 Test Item Value Reference Range Interpretation Comments TSH, THIRD GENERATION (test code 4.890 UIU/ML = 2821) COMPREHENSIVE METABOLIC [id number] 00:00:00 Test Item Value Reference Range Interpretation Comments GLUCOSE (test code = 2217) 121 MG/DL BUN (test code = 2208) 40 MG/DL CREATININE (test code = 2214) 1.48 MG/DL eGFR AMER. (test code 45 ML/MIN/1.73 = 30672) eGFR NON- AMER. (test 39 ML/MIN/1.73 code = 29516) CALC BUN/CREAT (test code = 27 RATIO [...] code = 2219) 20 U/L COMPREHENSIVE METABOLIC [id number] 00:00:00 Test Item Value Reference Range Interpretation Comments GLUCOSE (test code = 2217) 121 MG/DL BUN (test code = 2208) 40 MG/DL CREATININE (test code = 2214) 1.48 MG/DL eGFR AMER. (test code 45 ML/MIN/1.73 = 76825) eGFR NON- AMER. (test 39 ML/MIN/1.73 code = 14060) CALC BUN/CREAT (test code = 27 RATIO 2235) SODIUM (test code = 2231) 143 MEQ/L POTASSIUM (test code = 2228) 5.3 MEQ/L CHLORIDE (test code = 2215) 100 MEQ/L CARBON DIOXIDE (test code = 27 MEQ/L 220) CALCIUM (test code = 2209) 9.8 MG/DL PROTEIN, TOTAL (test code = 8.1 G/DL 2228) ALBUMIN (test code = 220) 5.3 G/DL CALC GLOBULIN (test code = 2.8 G/DL 2239) CALC A/G RATIO (test code = 1.9 RATIO 2233) BILIRUBIN, TOTAL (test code = 0.2 MG/DL 2206) ALKALINE PHOSPHATASE (test 99 U/L code = 220) AST (test code = 2218) 15 U/L ALT (test code = 2219) 20 U/L [id number] 00:00:00 Test Item Value Reference Range Interpretation Comments TSH, THIRD GENERATION (test code 4.890 UIU/ML = 2821) [id number] 00:00:00 Test Item Value Reference Range Interpretation Comments TSH, THIRD GENERATION (test code 4.890 UIU/ML = 2821) COMPREHENSIVE METABOLIC [id number] 00:00:00 Test Item Value Reference Range Interpretation Comments GLUCOSE (test code = 2217) 121 MG/DL BUN (test code = 2208) 40 MG/DL CREATININE (test code = 2214) 1.48 MG/DL eGFR AMER. (test code 45 ML/MIN/1.73 = 14953) eGFR NON- AMER. (test 39 ML/MIN/1.73 code = 51407) CALC BUN/CREAT (test code = 27 RATIO [...] ALT (test code = 2219) 20 U/L [id number] 00:00:00 Test Item Value Reference Range Interpretation Comments TSH, THIRD GENERATION (test code 4.890 UIU/ML = 2821) [id number] 00:00:00 Test Item Value Reference Range Interpretation Comments TSH, THIRD GENERATION (test code 4.890 UIU/ML = 2821) [id number] 00:00:00 Test Item Value Reference Range Interpretation Comments TSH, THIRD GENERATION (test code 4.890 UIU/ML = 2821) COMPREHENSIVE METABOLIC [id number] 00:00:00 Test Item Value Reference Range Interpretation Comments GLUCOSE (test code = 2217) 121 MG/DL BUN (test code = 2208) 40 MG/DL CREATININE (test code = 2214) 1.48 MG/DL eGFR AMER. (test code 45 ML/MIN/1.73 = 46388) eGFR NON- AMER. (test 39 ML/MIN/1.73 code = 05489) CALC BUN/CREAT (test code = 27 RATIO [...] code = 2219) 20 U/L COMPREHENSIVE METABOLIC [id number] 00:00:00 Test Item Value Reference Range Interpretation Comments GLUCOSE (test code = 2217) 121 MG/DL BUN (test code = 2208) 40 MG/DL CREATININE (test code = 2214) 1.48 MG/DL eGFR AMER. (test code 45 ML/MIN/1.73 = 75451) eGFR NON- AMER. (test 39 ML/MIN/1.73 code = 86470) CALC BUN/CREAT (test code = 27 RATIO [...] (test code = 2219) 20 U/L LIPID [id number] 00:00:00 Test Item Value Reference Range Interpretation Comments CHOLESTEROL (test code = 2210) 261 MG/DL TRIGLYCERIDES (test code = 2232) 165 MG/DL HDL CHOLESTEROL (test code = 2220) 58 MG/DL CALC LDL CHOL (test code = 2237) 170 MG/DL RISK RATIO LDL/HDL (test code = 2.93 RATIO 2238) LIPID [id number] 00:00:00 Test Item Value Reference Range Interpretation Comments CHOLESTEROL (test code = 2210) 261 MG/DL TRIGLYCERIDES (test code = 2232) 165 MG/DL HDL CHOLESTEROL (test code = 2220) 58 MG/DL CALC LDL CHOL (test code = 2237) 170 MG/DL RISK RATIO LDL/HDL (test code = 2.93 RATIO 2238) CBC W/AUTO [id number] 00:00:00 Test Item Value Reference Range Interpretation [...] code = 1015) 378 K/UL CBC W/AUTO [id number] 00:00:00 Test Item Value Reference Range Interpretation [...] code = 1015) 378 K/UL CBC W/AUTO [id number] 00:00:00 Test Item Value Reference Range Interpretation [...] (test code = 1015) 378 K/UL HEMOGLOBIN [id number] 00:00:00 Test Item Value Reference Range Interpretation Comments HEMOGLOBIN A1c (test code = 25681) 6.4 % HEMOGLOBIN [id number] 00:00:00 Test Item Value Reference Range Interpretation Comments HEMOGLOBIN A1c (test code = 85940) 6.4 % HEMOGLOBIN [id number] 00:00:00 Test Item Value Reference Range Interpretation Comments HEMOGLOBIN A1c (test code = 64014) 6.4 % [id number] 00:00:00 Test Item Value Reference Range Interpretation Comments TSH (test code = 2821) 5.290 UIU/ML [id number] 00:00:00 Test Item Value Reference Range Interpretation Comments TSH (test code = 2821) 5.290 UIU/ML [id number] 00:00:00 Test Item Value Reference Range Interpretation Comments TSH (test code = 2821) 5.290 UIU/ML LIPID [id number] 00:00:00 Test Item Value Reference Range Interpretation Comments CHOLESTEROL (test code = 2210) 261 MG/DL TRIGLYCERIDES (test code = 2232) 165 MG/DL HDL CHOLESTEROL (test code = 2220) 58 MG/DL CALC LDL CHOL (test code = 2237) 170 MG/DL RISK RATIO LDL/HDL (test code = 2.93 RATIO 2238) LIPID [id number] 00:00:00 Test Item Value Reference Range Interpretation Comments CHOLESTEROL (test code = 2210) 261 MG/DL TRIGLYCERIDES (test code = 2232) 165 MG/DL HDL CHOLESTEROL (test code = 2220) 58 MG/DL CALC LDL CHOL (test code = 2237) 170 MG/DL RISK RATIO LDL/HDL (test code = 2.93 RATIO 2238) CBC W/AUTO [id number] 00:00:00 Test Item Value Reference Range Interpretation [...] code = 1015) 378 K/UL CBC W/AUTO [id number] 00:00:00 Test Item Value Reference Range Interpretation [...] code = 1015) 378 K/UL CBC W/AUTO [id number] 00:00:00 Test Item Value Reference Range Interpretation [...] (test code = 1015) 378 K/UL HEMOGLOBIN [id number] 00:00:00 Test Item Value Reference Range Interpretation Comments HEMOGLOBIN A1c (test code = 09390) 6.4 % HEMOGLOBIN [id number] 00:00:00 Test Item Value Reference Range Interpretation Comments HEMOGLOBIN A1c (test code = 20210) 6.4 % HEMOGLOBIN [id number] 00:00:00 Test Item Value Reference Range Interpretation Comments HEMOGLOBIN A1c (test code = 25696) 6.4 % [id number] 00:00:00 Test Item Value Reference Range Interpretation Comments TSH (test code = 2821) 5.290 UIU/ML [id number] 00:00:00 Test Item Value Reference Range Interpretation Comments TSH (test code = 2821) 5.290 UIU/ML [id number] 00:00:00 Test Item Value Reference Range Interpretation Comments TSH (test code = 2821) 5.290 UIU/ML LIPID [id number] 00:00:00 Test Item Value Reference Range Interpretation Comments CHOLESTEROL (test code = 2210) 261 MG/DL TRIGLYCERIDES (test code = 2232) 165 MG/DL HDL CHOLESTEROL (test code = 2220) 58 MG/DL CALC LDL CHOL (test code = 2237) 170 MG/DL RISK RATIO LDL/HDL (test code = 2.93 RATIO 2238) CBC W/AUTO [id number] 00:00:00 Test Item Value Reference Range Interpretation [...] code = 1015) 378 K/UL CBC W/AUTO [id number] 00:00:00 Test Item Value Reference Range Interpretation [...] (test code = 1015) 378 K/UL HEMOGLOBIN [id number] 00:00:00 Test Item Value Reference Range Interpretation Comments HEMOGLOBIN A1c (test code = 15469) 6.4 % HEMOGLOBIN [id number] 00:00:00 Test Item Value Reference Range Interpretation Comments HEMOGLOBIN A1c (test code = 90701) 6.4 % [id number] 00:00:00 Test Item Value Reference Range Interpretation Comments TSH (test code = 2821) 5.290 UIU/ML [id number] 00:00:00 Test Item Value Reference Range Interpretation Comments TSH (test code = 2821) 5.290 UIU/ML LIPID [id number] 00:00:00 Test Item Value Reference Range Interpretation Comments CHOLESTEROL (test code = 2210) 261 MG/DL TRIGLYCERIDES (test code = 2232) 165 MG/DL HDL CHOLESTEROL (test code = 2220) 58 MG/DL CALC LDL CHOL (test code = 2237) 170 MG/DL RISK RATIO LDL/HDL (test code = 2.93 RATIO 2238) LIPID [id number] 00:00:00 Test Item Value Reference Range Interpretation Comments CHOLESTEROL (test code = 2210) 261 MG/DL TRIGLYCERIDES (test code = 2232) 165 MG/DL HDL CHOLESTEROL (test code = 2220) 58 MG/DL CALC LDL CHOL (test code = 2237) 170 MG/DL RISK RATIO LDL/HDL (test code = 2.93 RATIO 2238) CBC W/AUTO [id number] 00:00:00 Test Item Value Reference Range Interpretation [...] code = 1015) 378 K/UL CBC W/AUTO [id number] 00:00:00 Test Item Value Reference Range Interpretation [...] code = 1015) 378 K/UL CBC W/AUTO [id number] 00:00:00 Test Item Value Reference Range Interpretation [...] (test code = 1015) 378 K/UL HEMOGLOBIN [id number] 00:00:00 Test Item Value Reference Range Interpretation Comments HEMOGLOBIN A1c (test code = 36687) 6.4 % HEMOGLOBIN [id number] 00:00:00 Test Item Value Reference Range Interpretation Comments HEMOGLOBIN A1c (test code = 15235) 6.4 % HEMOGLOBIN [id number] 00:00:00 Test Item Value Reference Range Interpretation Comments HEMOGLOBIN A1c (test code = 97867) 6.4 % [id number] 00:00:00 Test Item Value Reference Range Interpretation Comments TSH (test code = 2821) 5.290 UIU/ML [id number] 00:00:00 Test Item Value Reference Range Interpretation Comments TSH (test code = 2821) 5.290 UIU/ML [id number] 00:00:00 Test Item Value Reference Range Interpretation Comments TSH (test code = 2821) 5.290 UIU/ML THYROID II PROFILE (T3U, T4, T7, [id number] 00:00:00 Test Item Value Reference Range Interpretation Comments T3 UPTAKE (test code = 2817) 32.3 % T4 (THYROXINE) (test code = 5.2 UG/DL 2818) CALCULATED T7 (FTI) (test code = 1.68 0) TSH (test code = 2821) 1.030 UIU/ML [...] code = 2821) 1.030 UIU/ML COMPREHENSIVE METABOLIC [id number] 00:00:00 Test Item Value Reference Range Interpretation Comments GLUCOSE (test code = 2217) 106 MG/DL BUN (test code = 2208) 23 MG/DL CREATININE (test code = 2214) 0.66 MG/DL eGFR AMER. (test code 114 ML/MIN/1.73 = 01913) eGFR NON- AMER. (test 99 ML/MIN/1.73 code = 59799) CALC BUN/CREAT (test code = 35 RATIO [...] code = 2219) 31 U/L COMPREHENSIVE METABOLIC [id number] 00:00:00 Test Item Value Reference Range Interpretation Comments GLUCOSE (test code = 2217) 106 MG/DL BUN (test code = 2208) 23 MG/DL CREATININE (test code = 2214) 0.66 MG/DL eGFR AMER. (test code 114 ML/MIN/1.73 = 48661) eGFR NON- AMER. (test 99 ML/MIN/1.73 code = 74943) CALC BUN/CREAT (test code = 35 RATIO [...] code = 2821) 0.335 UIU/ML COMPREHENSIVE METABOLIC [id number] 00:00:00 Test Item Value Reference Range Interpretation Comments GLUCOSE (test code = 2217) 106 MG/DL BUN (test code = 2208) 23 MG/DL CREATININE (test code = 2214) 0.66 MG/DL eGFR AMER. (test code 114 ML/MIN/1.73 = 19037) eGFR NON- AMER. (test 99 ML/MIN/1.73 code = 07365) CALC BUN/CREAT (test code = 35 RATIO [...] code = 2219) 31 U/L COMPREHENSIVE METABOLIC [id number] 00:00:00 Test Item Value Reference Range Interpretation Comments GLUCOSE (test code = 2217) 106 MG/DL BUN (test code = 2208) 23 MG/DL CREATININE (test code = 2214) 0.66 MG/DL eGFR AMER. (test code 114 ML/MIN/1.73 = 30639) eGFR NON- AMER. (test 99 ML/MIN/1.73 code = 91214) CALC BUN/CREAT (test code = 35 RATIO [...] code = 2821) 0.335 UIU/ML COMPREHENSIVE METABOLIC [id number] 00:00:00 Test Item Value Reference Range Interpretation Comments GLUCOSE (test code = 2217) 106 MG/DL BUN (test code = 2208) 23 MG/DL CREATININE (test code = 2214) 0.66 MG/DL eGFR AMER. (test code 114 ML/MIN/1.73 = 36996) eGFR NON- AMER. (test 99 ML/MIN/1.73 code = 87965) CALC BUN/CREAT (test code = 35 RATIO [...] code = 2821) 0.335 UIU/ML COMPREHENSIVE METABOLIC [id number] 00:00:00 Test Item Value Reference Range Interpretation Comments GLUCOSE (test code = 2217) 106 MG/DL BUN (test code = 2208) 23 MG/DL CREATININE (test code = 2214) 0.66 MG/DL eGFR AMER. (test code 114 ML/MIN/1.73 = 70873) eGFR NON- AMER. (test 99 ML/MIN/1.73 code = 79492) CALC BUN/CREAT (test code = 35 RATIO [...] code = 2219) 31 U/L COMPREHENSIVE METABOLIC [id number] 00:00:00 Test Item Value Reference Range Interpretation Comments GLUCOSE (test code = 2217) 106 MG/DL BUN (test code = 2208) 23 MG/DL CREATININE (test code = 2214) 0.66 MG/DL eGFR AMER. (test code 114 ML/MIN/1.73 = 73231) eGFR NON- AMER. (test 99 ML/MIN/1.73 code = 36635) CALC BUN/CREAT (test code = 35 RATIO [...] code = 2821) 0.335 UIU/ML COMPREHENSIVE METABOLIC [id number] 00:00:00 Test Item Value Reference Range Interpretation Comments GLUCOSE (test code = 2217) 103 MG/DL BUN (test code = 2208) 15 MG/DL CREATININE (test code = 2214) 0.77 MG/DL eGFR AMER. (test code 101 ML/MIN/1.73 = 29773) eGFR NON- AMER. (test 87 ML/MIN/1.73 code = 88676) CALC BUN/CREAT (test code = 19 RATIO [...] code = 2219) 24 U/L COMPREHENSIVE METABOLIC [id number] 00:00:00 Test Item Value Reference Range Interpretation Comments GLUCOSE (test code = 2217) 103 MG/DL BUN (test code = 2208) 15 MG/DL CREATININE (test code = 2214) 0.77 MG/DL eGFR AMER. (test code 101 ML/MIN/1.73 = 70185) eGFR NON- AMER. (test 87 ML/MIN/1.73 code = 65476) CALC BUN/CREAT (test code = 19 RATIO [...] code = 2821) 0.424 UIU/ML COMPREHENSIVE METABOLIC [id number] 00:00:00 Test Item Value Reference Range Interpretation Comments GLUCOSE (test code = 2217) 103 MG/DL BUN (test code = 2208) 15 MG/DL CREATININE (test code = 2214) 0.77 MG/DL eGFR AMER. (test code 101 ML/MIN/1.73 = 80197) eGFR NON- AMER. (test 87 ML/MIN/1.73 code = 37860) CALC BUN/CREAT (test code = 19 RATIO [...] code = 2219) 24 U/L COMPREHENSIVE METABOLIC [id number] 00:00:00 Test Item Value Reference Range Interpretation Comments GLUCOSE (test code = 2217) 103 MG/DL BUN (test code = 2208) 15 MG/DL CREATININE (test code = 2214) 0.77 MG/DL eGFR AMER. (test code 101 ML/MIN/1.73 = 28681) eGFR NON- AMER. (test 87 ML/MIN/1.73 code = 88154) CALC BUN/CREAT (test code = 19 RATIO [...] code = 2821) 0.424 UIU/ML COMPREHENSIVE METABOLIC [id number] 00:00:00 Test Item Value Reference Range Interpretation Comments GLUCOSE (test code = 2217) 103 MG/DL BUN (test code = 2208) 15 MG/DL CREATININE (test code = 2214) 0.77 MG/DL eGFR AMER. (test code 101 ML/MIN/1.73 = 91822) eGFR NON- AMER. (test 87 ML/MIN/1.73 code = 79515) CALC BUN/CREAT (test code = 19 RATIO [...] code = 2821) 0.424 UIU/ML COMPREHENSIVE METABOLIC [id number] 00:00:00 Test Item Value Reference Range Interpretation Comments GLUCOSE (test code = 2217) 103 MG/DL BUN (test code = 2208) 15 MG/DL CREATININE (test code = 2214) 0.77 MG/DL eGFR AMER. (test code 101 ML/MIN/1.73 = 54106) eGFR NON- AMER. (test 87 ML/MIN/1.73 code = 87250) CALC BUN/CREAT (test code = 19 RATIO [...] code = 2219) 24 U/L COMPREHENSIVE METABOLIC [id number] 00:00:00 Test Item Value Reference Range Interpretation Comments GLUCOSE (test code = 2217) 103 MG/DL BUN (test code = 2208) 15 MG/DL CREATININE (test code = 2214) 0.77 MG/DL eGFR AMER. (test code 101 ML/MIN/1.73 = 17583) eGFR NON- AMER. (test 87 ML/MIN/1.73 code = 72955) CALC BUN/CREAT (test code = 19 RATIO [...] (test code = 2821) 0.424 UIU/ML CULTURE, [id number] 00:00:00 Test Item Value Reference Range Interpretation Comments CULTURE, URINE (test SPECIMEN NUMBER: code = 59857) [id number] CULTURE, [id number] 00:00:00 Test Item Value Reference Range Interpretation Comments CULTURE, URINE (test SPECIMEN NUMBER: code = 87107) [id number] CULTURE, [id number] 00:00:00 Test Item Value Reference Range Interpretation Comments CULTURE, URINE (test SPECIMEN NUMBER: code = 44612) [id number] CULTURE, [id number] 00:00:00 Test Item Value Reference Range Interpretation Comments CULTURE, URINE (test SPECIMEN NUMBER: code = 80558) [id number] CULTURE, [id number] 00:00:00 Test Item Value Reference Range Interpretation Comments CULTURE, URINE (test SPECIMEN NUMBER: code = 75172) [id number] CULTURE, [id number] 00:00:00 Test Item Value Reference Range Interpretation Comments CULTURE, URINE (test SPECIMEN NUMBER: code = 93795) [id number] CULTURE, [id number] 00:00:00 Test Item Value Reference Range Interpretation Comments CULTURE, URINE (test SPECIMEN NUMBER: code = 97370) [id number] CULTURE, [id number] 00:00:00 Test Item Value Reference Range Interpretation Comments CULTURE, URINE (test SPECIMEN NUMBER: code = 74043) [id number] CULTURE, [id number] 00:00:00 Test Item Value Reference Range Interpretation Comments CULTURE, URINE (test SPECIMEN NUMBER: code = 93737) [id number] CULTURE, [id number] 00:00:00 Test Item Value Reference Range Interpretation Comments CULTURE, URINE (test SPECIMEN NUMBER: code = 44597) [id number] CULTURE, [id number] 00:00:00 Test Item Value Reference Range Interpretation Comments CULTURE, URINE (test SPECIMEN NUMBER: code = 30658) [id number] CULTURE, [id number] 00:00:00 Test Item Value Reference Range Interpretation Comments CULTURE, URINE (test SPECIMEN NUMBER: code = 94245) [id number] CULTURE, [id number] 00:00:00 Test Item Value Reference Range Interpretation Comments CULTURE, URINE (test SPECIMEN NUMBER: code = 40509) [id number] CULTURE, [id number] 00:00:00 Test Item Value Reference Range Interpretation Comments CULTURE, URINE (test SPECIMEN NUMBER: code = 07159) [id number]
[2022-02-12] MEDS ORDERED: ONDANSETRON 4 MG/2 ML VIAL ONE (08:12)
[2022-02-12] MEDS ORDERED: MORPHINE 4 MG/ML SYR ONE (08:12)
[2022-02-12 08:33] LABS: Absolute Lymphocytes (CBC) 2.2 K/uL (0.7-4.9); MCV 91.6 fL (80-100); MPV 7.1 fL (7.6-11.3); RBC Red Blood Cell Count 3.28 M/uL (3.86-4.86)
--- NOTE | 2022-02-12 08:33 | RAD REPORT ---
EXAM DESCRIPTION: US - Abdomen Exam Limited - 02/12/2022 8:12 am CLINICAL HISTORY: Abdominal pain. FINDINGS: The gallbladder is contracted. Equivocal 3 millimeter polyp present. Gallstone is not seen . The biliary tree is normal caliber. IMPRESSION: Equivocal 3 millimeter gallbladder polyp likely not significant
[2022-02-12 08:49] LABS: Albumin 3.2 g/dL (3.4-5.0); Bilirubin Total 0.2 mg/dL (0.2-1.0); Protein, Total 6.5 g/dL (6.4-8.2)
[2022-02-12 08:51] LABS: Potassium 4.5 mmol/L (3.5-5.1)
--- NOTE | 2022-02-12 08:54 | EDPHYS ---
Physician Documentation [facility] Name: Jaimie Amanda Age: 61 yrs Sex: Female : 1960 Arrival Date: 02/12/2022 Time: 07:32 Bed 7 Private MD: ED Physician Villa Byrd HPI: 02/12 07:40 This 61 yrs old Female presents to ER via Ambulatory with complaints of Abdominal Pain. rn 07:40 The patient presents with abdominal pain in the epigastric area, in the right upper rn quadrant. Onset: The symptoms/episode began/occurred at an unknown time. The symptoms do not radiate. Associated signs and symptoms: Pertinent positives: nausea and vomiting, Pertinent negatives: blood in stools, chest pain, constipation, diarrhea, dysuria, fever. The symptoms are described as sharp, stabbing. Modifying factors: The symptoms are alleviated by nothing, the symptoms are aggravated by touching the area. Severity of pain: At its worst the pain was moderate in the emergency department the pain is unchanged. The patient has experienced similar episodes in the past. The patient has been recently seen at the [facility] Emergency Department. Pt reports RUQ abd pain, intermittent, now 5th day in a row she has come in for evaluation. No fever. + nausea and vomiting yesterday but no longer since seen here yesterday. No known gallbladder problems. Reports pain went away with shot yesterday but returned this AM. NO fever. No trauma. No blood in stool. . Historical: - Allergies: 07:38 No Known Allergies; vg1 - PMHx: 07:38 Alcoholism; Anxiety; Chronic Abdominal Pain; Hypertensive disorder; Hypothyroidism; low vg1 NA; NIDDM; - PSHx: 07:38 Thyroidectomy; vg1 - Immunization history:: Client reports receiving the 2nd dose of the Covid vaccine. - Social history:: Smoking status: Patient reports the use of cigarette tobacco products, smokes one-half pack cigarettes per day. - Family history:: not pertinent. - Hospitalizations: : No recent hospitalization is reported. ROS: 07:40 Constitutional: Negative for fever, chills, and weight loss, Eyes: Negative for injury, rn pain, redness, and discharge, Neck: Negative for injury, pain, and swelling, Cardiovascular: Negative for chest pain, palpitations, and edema, Respiratory: Negative for shortness of breath, cough, wheezing, and pleuritic chest pain, Abdomen/GI: + upper abd pain and nausea/vomiting Back: Negative for injury and pain, : Negative for injury, bleeding, discharge, and swelling, MS/Extremity: Negative for injury and deformity, Skin: Negative for injury, rash, and discoloration, Neuro: Negative for headache, weakness, numbness, tingling, and seizure. Exam: 07:40 Constitutional: This is a well developed, well nourished patient who is awake, alert, rn and in no acute distress. Head/Face: Normocephalic, atraumatic. Cardiovascular: Regular rate and rhythm. No pulse deficits. Respiratory: No increased work of breathing, no retractions or nasal flaring. Abdomen/GI: soft, mild epigastric and RUQ tenderness, no rebound or distension Skin: Warm, dry MS/ Extremity: Pulses equal, no cyanosis. Neuro: Awake and alert, GCS 15 Vital Signs: 07:36 BP 120 / 62; Pulse 70; Resp 15; Temp 98.8; Pulse Ox 98% on R/A; Weight 70.31 kg; Height vg1 5 ft. 7 in. (170.18 cm); 08:31 BP 132 / 67; Pulse 51; Resp 18 S; Pulse Ox 98% on R/A; Pain 8/10; kc6 07:36 Body Mass Index 24.28 (70.31 kg, 170.18 cm) vg1 MDM: 07:43 Patient medically screened. rn 08:53 Differential diagnosis: cholecystitis, Cholelithiasis, gastritis, gastroesophageal rn reflux disease, non-specific abd pain, pancreatitis, Peptic Ulcer Disease. Data reviewed: vital signs, nurses notes, lab test result(s), radiologic studies, ultrasound, and as a result, I will discharge patient. Counseling: I had a detailed discussion with the patient and/or guardian regarding: the historical points, exam findings, and any diagnostic results supporting the discharge/admit diagnosis, lab results, radiology results, the need for outpatient follow up, to return to the emergency department if symptoms worsen or persist or if there are any questions or concerns that arise at home. Response to treatment: the patient's symptoms have markedly improved after treatment, and as a result, I will discharge patient. Special discussion: Based on the patient's Hx, exam, and Dx evaluation, there is no indication for emergent surgery or inpatient Tx. It is understood by the patient/guardian that if the Sx's persist or worsen they need to return immediately for re-evaluation. I discussed with the patient/guardian in detail that at this point there is no indication for admission to the hospital. It is understood, however, that if the symptoms persist or worsen the patient needs to return immediately for re-evaluation. Based on the history and exam findings, there is no indication for further emergent testing or inpatient evaluation. I discussed with the patient/guardian the need to see the courier driver for further evaluation of the symptoms. I discussed with the patient/guardian the need to see the primary care provider for further evaluation of the symptoms. 02/12 07:40 Order name: CBC with Diff; Complete Time: 08:37 rn 02/12 07:40 Order name: CMP; Complete Time: 08:52 rn 02/12 07:40 Order name: Lipase; Complete Time: 08:52 rn 02/12 07:40 Order name: US Abdomen Limited; Complete Time: 08:37 rn 02/12 07:40 Order name: IV Saline Lock; Complete Time: 08:26 rn 02/12 07:40 Order name: Labs collected and sent; Complete Time: 08:26 rn Administered Medications: 08:26 Drug: Zofran (Ondansetron) 4 mg Route: IVP; Site: right antecubital; kc6 08:26 Drug: morphine 4 mg Route: IVP; Infused Over: 4 mins; Site: right antecubital; kc6 Disposition Summary: 02/12/22 08:53 Discharge Ordered Location: Home rn Problem: an ongoing problem rn Symptoms: have improved rn Condition: Stable rn Diagnosis - Upper abdominal pain, unspecified rn Followup: rn - With: Private Physician - When: As needed - Reason: Recheck today's complaints, Re-evaluation by your physician Discharge Instructions: - Discharge Summary Sheet rn - Abdominal Pain, Adult rn Forms: - Medication Reconciliation Form rn - Thank You Letter rn - 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
--- NOTE | 2022-02-12 08:54 | ER ---
Nurse's Notes [facility] Name: Jaimie Amanda Age: 61 yrs Sex: Female : 1960 Arrival Date: 02/12/2022 Time: 07:32 Bed 7 Private MD: Diagnosis: Upper abdominal pain, unspecified Presentation: 02/12 07:36 Chief complaint: Patient states: woke up this morning around 0215 with N/V, stated RUQ vg1 pain since yesterday. Coronavirus screen: Vaccine status: Patient reports receiving the 2nd dose of the covid vaccine. Client denies travel out of the [place] in the last 14 days. Ebola Screen: Patient negative for fever greater than or equal to 101.5 degrees Fahrenheit, and additional compatible Ebola Virus Disease symptoms. Initial Sepsis Screen: Does the patient meet any 2 criteria? No. Patient's initial sepsis screen is negative. Does the patient have a suspected source of infection? No. Patient's initial sepsis screen is negative. Risk Assessment: Do you want to hurt yourself or someone else? Patient reports no desire to harm self or others. Onset of symptoms was February 10, 2022. 07:36 Method Of Arrival: Ambulatory vg1 07:36 Acuity: ZHEN 3 vg1 Triage Assessment: 07:38 General: Appears uncomfortable, Behavior is calm, cooperative. Pain: Complains of pain vg1 in epigastric area and right upper quadrant Pain currently is 9 out of 10 on a pain scale. GI: Abdomen is round non-distended, Abdomen is tender to palpation in epigastric area and right upper quadrant Reports nausea, vomiting. Historical: - Allergies: 07:38 No Known Allergies; vg1 - PMHx: 07:38 Alcoholism; Anxiety; Chronic Abdominal Pain; Hypertensive disorder; Hypothyroidism; low vg1 NA; NIDDM; - PSHx: 07:38 Thyroidectomy; vg1 - Immunization history:: Client reports receiving the 2nd dose of the Covid vaccine. - Social history:: Smoking status: Patient reports the use of cigarette tobacco products, smokes one-half pack cigarettes per day. - Family history:: not pertinent. - Hospitalizations: : No recent hospitalization is reported. Screenin:27 Abuse screen: Denies threats or abuse. Denies injuries from another. Nutritional kc6 screening: No deficits noted. Tuberculosis screening: No symptoms or risk factors identified. Fall Risk None identified. Assessment: 08:28 General: Appears in no apparent distress. comfortable, Behavior is calm, cooperative, kc6 appropriate for age. Pain: Complains of pain in right upper quadrant and right lower quadrant Pain does not radiate. Pain currently is 8 out of 10 on a pain scale. Quality of pain is described as sharp, Pain began at about 3am this morning. Is continuous, Alleviated by nothing. Aggravated by increased activity, repositioning. Neuro: Jorgensen Agitation-Sedation Scale (RASS): 0 - Alert and Calm Level of Consciousness is awake, alert, obeys commands, Oriented to person, place, time, situation, Appropriate for age. Cardiovascular: Heart tones S1 S2 present Capillary refill < 3 seconds. Respiratory: Airway is patent Trachea midline Respiratory effort is even, unlabored, Respiratory pattern is regular, symmetrical, Breath sounds are clear bilaterally. GI: Abdomen is round distended, Bowel sounds present X 4 quads. Abd is soft X 4 quads Abdomen is tender to palpation in right upper quadrant and right lower quadrant Patient currently denies diarrhea, nausea, vomiting. : No signs and/or symptoms were reported regarding the genitourinary system. EENT: No signs and/or symptoms were reported regarding the EENT system. Derm: No signs and/or symptoms reported regarding the dermatologic system. Skin is intact, Skin is pink, warm \T\ dry. Musculoskeletal: No signs and/or symptoms reported regarding the musculoskeletal system. Circulation, motion, and sensation intact. Capillary refill < 3 seconds, Range of motion: intact in all extremities. Vital Signs: 07:36 BP 120 / 62; Pulse 70; Resp 15; Temp 98.8; Pulse Ox 98% on R/A; Weight 70.31 kg; Height vg1 5 ft. 7 in. (170.18 cm); 08:31 BP 132 / 67; Pulse 51; Resp 18 S; Pulse Ox 98% on R/A; Pain 8/10; kc6 07:36 Body Mass Index 24.28 (70.31 kg, 170.18 cm) vg1 ED Course: 07:32 Patient arrived in ED. rg4 07:34 Villa Byrd MD is Attending Physician. rn 07:38 Triage completed. vg1 07:38 Arm band placed on. vg1 07:53 Kelly Beavers, RN is Primary Nurse. kc6 08:13 US Abdomen Limited In Process Unspecified. EDMS 08:26 CBC with Diff Sent. kc6 08:26 CMP Sent. kc6 08:26 Lipase Sent. kc6 08:27 Inserted saline lock: 20 gauge in right antecubital area, using aseptic technique. kc6 Blood collected. 09:04 Patient has correct armband on for positive identification. Bed in low position. Call kc6 light in reach. Side rails up X 1. 09:04 No provider procedures requiring assistance completed. IV discontinued, intact, kc6 bleeding controlled, No redness/swelling at site. Pressure dressing applied. Administered Medications: 08:26 Drug: Zofran (Ondansetron) 4 mg Route: IVP; Site: right antecubital; kc6 08:26 Drug: morphine 4 mg Route: IVP; Infused Over: 4 mins; Site: right antecubital; kc6 Medication: 09:04 VIS not applicable for this client. kc6 Outcome: 08:53 Discharge ordered by . rn 09:04 Discharged to home ambulatory. kc6 09:04 Condition: stable 09:04 Discharge instructions given to patient, Instructed on discharge instructions, follow up and referral plans. Demonstrated understanding of instructions, follow-up care. 09:05 Patient left the ED. kc6 Signatures: Dispatcher [employer] Villa Villanueva MD MD rn Garcia, Alejandra rg4 Geneva Ramirez RN RN vg1 Kelly Beavers RN RN kc6
[2022-02-12 14:05] VITALS: TEMP 98.8; O2SAT 98
[2022-02-12 14:07] VITALS: BP 132/67
== END 2022-02-12 09:05 | disposition home or self-care (01) ==
LOC: ER 07:28
DX: R10.11 Right upper quadrant pain (principal); F10.20 Alcohol dependence, uncomplicated; I10 Essential (primary) hypertension; F17.210 Nicotine dependence, cigarettes, uncomplicated
CPT/HCPCS: 85025; 36415; 83690; 80053; 76705; 96375; 96374; 99284; J2405

== ENCOUNTER 2022-02-20 10:43 | Emergency (ER) | payer OTHER ==
--- OUTSIDE RECORDS SUMMARY | 2022-02-20 10:54 | XMS REPORT | Continuity of Care Document ---
:1960 Author Organization [facility] t Address [address] [place] [address] Care Team Providers Name Role Phone Jacinda George Primary Care Physician [phone] MATT SIMPSON Attending Clinician Unavailable MATT SIMPSON Attending Clinician Unavailable Doctor Unassigned, [place] Attending Clinician Unavailable WALLY KRISHNAMURTHY Attending Clinician Unavailable Natacha Brewster Attending Clinician Payers Payer Name Policy Type Policy Number Effective Date Expiration Date Sarina castelan [facility] JESSICA [id number] 2017 00:00:00 PLUS Problems This patient has [...] s TRANSDER 5-21 ity of MAL 00:00: [place] [facility] ACETAMIN DRUG Active Other-Cmnt [facility] ers OPHEN INGREDI 07-27 ity of 00:00: [place] [facility] Hmg-Coa Propensi Inactiv Reductas ty to e 228 e adverse 00:00: Inhibito reaction 00 rs to drug Nitrogly Propensi Active 2017-03 cerin ty to 108 adverse 00:00: reaction 00 to drug Medications [...] MOUTH DAILY 00:00: AT BEDTIME 00 Dose 2021-1 No Unknown 03-12 00:00: 00 TAKE 2021-03 No TABLET BY 1-04 MOUTH EVERY 00:00: SIX HOURS 00 NEEDED VENLAFAXINE 2021-03 No HCL ER 150 1-04 MG CP24 00:00: 00 CLONIDINE 2021-1 No HYDROCHLORI 1-04 DE 0.3 MG 00:00: TABS 00 CLONAZEPAM 2021-0 No 1 MG TABS 11-19 00:00: 00 CLONAZEPAM 2021-0 No 1 MG TABS 11-19 00:00: 00 CLONAZEPAM 2022-0 No 1 MG TABS 11-19 00:00: 00 TAKE 1 2022-0 No TABLET BY 11-08 [...] Dose 2-0 No Unknown 4-06 00:00: 00 losartan 2022-0 [...] 2020-1 No Unknown 2-08 00:00: 00 losartan 2021-1 No 1mg 100 [...] 100 8-02 mg capsule 00:00: 00 cetirizine 1-0 No 1mg 10 mg 8-02 tablet 00:00: 00 fenofibrate 1-0 No 1mg 160 mg 8-02 tablet 00:00: 00 fluticasone 2021-0 No 2mcg/ac propionate 8- tuation 50 00:00: mcg/actuati 00 on nasal spray,suspe nsion Tessalon 1-0 No 1mg Perles 100 8-02 mg capsule 00:00: 00 cetirizine 1-0 No 1mg 10 mg 8-02 [...] 137 mcg 7-19 tablet 00:00: 00 levothyroxi 1-0 No 1mcg [...] 50 mg 1-05 capsule 00:00: 00 amoxicillin 2021-0 No 1mg 875 1-05 mg-potassiu 00:00: m 00 clavulanate 125 mg tablet liothyronin 1-0 No 1mcg e 5 mcg 1-05 tablet 00:00: 00 levothyroxi 2021-0 No 1mcg ne 125 mcg 1-05 tablet 00:00: 00 indomethaci 2021-0 No 1mg n 50 mg 1-05 capsule 00:00: 00 amoxicillin 2021-0 No 1mg 875 1-05 mg-potassiu 00:00: m [...] 125 mcg 2-04 tablet 00:00: 00 liothyronin 2019-03 No 1mcg e 5 mcg 2-04 tablet 00:00: 00 ondansetron 2019- No 1mg 4 mg 2-04 disintegrat 00:00: ing tablet 00 levothyroxi 2019-03 No 1mcg ne 125 mcg 2-04 tablet 00:00: 00 liothyronin 2019-03 No 1mcg e 5 mcg 2-04 tablet 00:00: 00 ondansetron 2019- No 1mg 4 mg 2-04 disintegrat 00:00: ing tablet 00 levothyroxi 2019- No 1mcg ne 125 mcg 2-04 tablet 00:00: 00 liothyronin 2019-03 No 1mcg e 5 mcg 2-04 tablet 00:00: 00 ondansetron 2019- No 1mg 4 mg 2-04 disintegrat 00:00: ing tablet 00 levothyroxi 2019- No 1mcg ne 125 mcg 2-04 tablet 00:00: 00 liothyronin 2019- No 1mcg e 5 mcg 2-04 tablet 00:00: 00 levothyroxi 2019- No 1mcg ne 125 mcg 0-08 tablet 00:00: 00 liothyronin 2019- No 1mcg e 5 mcg 0-08 tablet 00:00: 00 levothyroxi 2019- No 1mcg ne 125 mcg 0-08 tablet 00:00: 00 liothyronin 2019- No 1mcg e 5 mcg 0-08 tablet 00:00: 00 levothyroxi 2019- No 1mcg ne 125 mcg 0-08 tablet 00:00: 00 liothyronin 2019- No 1mcg e 5 mcg 0-08 tablet [...] Flagyl 500 2018-1 No 1mg mg tablet - 00:00: 00 Flagyl 500 2018-1 No 1mg mg tablet - 00:00: 00 Flagyl 500 2018-1 No 1mg mg tablet - 00:00: 00 Premarin 2019-1 No 1mg 0.625 [...] ondansetron 2018-0 No 1mg HCl 4 mg - tablet 00:00: 00 levothyroxi 2018-0 No 1mcg ne 150 mcg - tablet 00:00: 00 amlodipine 2018-0 No 1mg 5 mg tablet 09-22 00:00: 00 ondansetron 2018-0 No 1mg HCl 4 mg - tablet 00:00: 00 levothyroxi 2018-0 No 1mcg ne 150 mcg - tablet 00:00: 00 amlodipine 2018-0 No 1mg 5 mg tablet 09-22 00:00: 00 ondansetron 2018-0 No 1mg HCl 4 mg - tablet 00:00: 00 levothyroxi 2018-0 No 1mcg [...] 125 mcg 2-09 tablet 00:00: 00 levothyroxi 2017-0 No 1mcg ne 125 mcg 2-09 tablet [...] 125 mcg 2-21 tablet 00:00: 00 hydrochloro 2016-1 No 1mg thiazide 25 2-20 mg tablet 00:00: 00 levothyroxi 2016-03 No 1mcg ne 150 mcg 2-20 tablet 00:00: 00 hydrochloro 2016-1 No 1mg thiazide 25 2-20 mg tablet 00:00: 00 levothyroxi 2016-03 No 1mcg ne 150 mcg 2-20 tablet 00:00: 00 hydrochloro 2016-1 No 1mg thiazide 25 2-20 mg tablet 00:00: 00 levothyroxi 2016-03 No 1mcg ne 150 mcg 2-20 tablet 00:00: 00 hydrochloro 2016- No 1mg thiazide 25 2-20 mg tablet 00:00: 00 levothyroxi 1 No 1mcg ne 150 mcg 2-20 tablet 00:00: 00 paroxetine 2016- No 1mg 40 mg 1-15 tablet 00:00: 00 paroxetine 2016- No 1mg 40 mg 1-15 tablet 00:00: 00 risperidone 2016-1 No 1mg 1 mg tablet 1-15 00:00: 00 Trileptal 2017- No 1mg 600 mg 1-15 tablet 00:00: [...] 150 mcg 0-24 tablet 00:00: 00 levothyroxi 2016-1 No 1mcg ne 150 mcg 0-24 tablet 00:00: 00 levothyroxi 2016- No 1mcg ne 150 mcg 0-24 tablet 00:00: 00 levothyroxi 2016- No 1mcg ne 150 mcg 0-24 tablet 00:00: 00 risperidone 2017-0 No 1mg 1 mg tablet 7- 00:00: 00 Trileptal 2016-0 No 1mg 600 mg 7-05 tablet 00:00: [...] baclofen 10 2017-0 No 1mg mg tablet 530 00:00: 00 [...] Goal Plan of Care Note [code = 80378-4] Goal Plan of Care Note [code = 03944-5] Goal Plan of Care Note [code = 12818-4] Goal Plan of Care Note [code = 61316-7] Goal Plan of Care Note [code = 52699-8] Goal Plan of Care Note [code = 48375-1] Goal Plan of Care Note [code = 68812-5] Goal Plan of Care Note [code = 65375-6] Goal Plan of Care Note [code = 84930-8] Goal Plan of Care Note [code = 30863-9] Goal Plan of Care Note [code = 53843-4] Goal Plan of Care Note [code = 62507-9] Goal Plan of Care Note [code = 55066-8] Goal Plan of Care Note [code = 45820-2] Goal Plan of Care Note [code = 27067-3] Goal Plan of Care Note [code = 91497-0] Goal Plan of Care Note [code = 53521-9] Goal Plan of Care Note [code = 62970-6] Goal Plan of Care Note [code = 89795-7] Goal Plan of Care Note [code = 37412-5] Goal Plan of Care Note [code = 49554-7] Goal Plan of Care Note [code = 33049-1] Goal Plan of Care Note [code = 48404-3] Goal Plan of Care Note [code = 35557-1] Goal Plan of Care Note [code = 33084-5] Goal Plan of Care Note [code = 74351-1] Goal Plan of Care Note [code = 02901-9] Goal Plan of Care Note [code = 88232-6] Goal Plan of Care Note [code = 26290-4] Goal Plan of Care Note [code = 99523-4] Goal Plan of Care Note [code = 67660-2] Goal Plan of Care Note [code = 39415-2] Goal Plan of Care Note [code = 22676-5] Goal Plan of Care Note [code = 39946-7] Goal Plan of Care Note [code = 20808-1] Goal Plan of Care Note [code = 94764-8] Goal Plan of Care Note [code = 35414-6] Goal Plan of Care Note [code = 87339-1] Goal Plan of Care Note [code = 37600-8] Goal Plan of Care Note [code = 38313-6] Goal Plan of Care Note [code = 46521-7] Goal Plan of Care Note [code = 87199-0] Goal Plan of Care Note [code = 61927-6] Goal Plan of Care Note [code = 46909-6] Goal Plan of Care Note [code = 32858-8] Goal Plan of Care Note [code = 36306-8] Goal Plan of Care Note [code = 26147-8] Goal Plan of Care Note [code = 02737-4] Goal Plan of Care Note [code = 02323-3] Goal Plan of Care Note [code = 19084-8] Goal Plan of Care Note [code = 10890-0] Goal Plan of Care Note [code = 71620-6] Goal Plan of Care Note [code = 25853-2] Goal Plan of Care Note [code = 51999-9] Goal Plan of Care Note [code = 99462-6] Goal Plan of Care Note [code = 41652-8] Goal Plan of Care Note [code = 11634-4] Goal Plan of Care Note [code = 93607-7] Goal Plan of Care Note [code = 97545-6] Goal Plan of Care Note [code = 80470-8] Goal Plan of Care Note [code = 55547-6] Goal Plan of Care Note [code = 32872-9] Goal Plan of Care Note [code = 60578-4] Goal Plan of Care Note [code = 15425-0] Goal Plan of Care Note [code = 02001-7] Goal Plan of Care Note [code = 16308-3] Goal Plan of Care Note [code = 09870-6] Goal Plan of Care Note [code = 05644-2] Goal Plan of Care Note [code = 99345-0] Goal Plan of Care Note [code = 12001-3] Goal Plan of Care Note [code = 99478-8] Goal Plan of Care Note [code = 41704-3] Goal Plan of Care Note [code = 55268-1] Goal Plan of Care Note [code = 29209-4] Goal Plan of Care Note [code = 76896-6] Goal Plan of Care Note [code = 90951-3] Goal Plan of Care Note [code = 33616-4] Goal Plan of Care Note [code = 80006-6] Goal Plan of Care Note [code = 10006-9] Goal Plan of Care Note [code = 28421-2] Goal Plan of Care Note [code = 73438-9] Goal Plan of Care Note [code = 99246-1] Goal Plan of Care Note [code = 52917-2] Goal Plan of Care Note [code = 06159-8] Goal Plan of Care Note [code = 23901-2] Goal Plan of Care Note [code = 21562-7] Goal Plan of Care Note [code = 23090-2] Goal Plan of Care Note [code = 26341-1] Goal Plan of Care Note [code = 51525-1] Goal Plan of Care Note [code = 37003-7] Goal Plan of Care Note [code = 06288-3] Goal Plan of Care Note [code = 50286-5] Goal Plan of Care Note [code = 42807-8] Goal Plan of Care Note [code = 45016-8] Goal Plan of Care Note [code = 67110-7] Goal Plan of Care Note [code = 29879-0] Goal Plan of Care Note [code = 19873-9] Goal Plan of Care Note [code = 79747-8] Goal Plan of Care Note [code = 87557-2] Goal Plan of Care Note [code = 46810-1] Goal Plan of Care Note [code = 27415-4] Goal Plan of Care Note [code = 34242-5] Goal Plan of Care Note [code = 12819-2] Goal Plan of Care Note [code = 53022-7] Goal Plan of Care Note [code = 15769-9] Goal Plan of Care Note [code = 80973-5] Goal Plan of Care Note [code = 51479-9] Goal Plan of Care Note [code = 31355-2] Goal Plan of Care Note [code = 84430-8] Goal Plan of Care Note [code = 41270-7] Goal Plan of Care Note [code = 36554-6] Goal Plan of Care Note [code = 14279-7] Goal Plan of Care Note [code = 79940-2] Goal Plan of Care Note [code = 54715-2] Goal Plan of Care Note [code = 95803-6] Goal Plan of Care Note [code = 43618-4] Goal Plan of Care Note [code = 27198-2] Goal Plan of Care Note [code = 59702-0] Goal Plan of Care Note [code = 96314-9] Goal Plan of Care Note [code = 53043-5] Goal Plan of Care Note [code = 57165-5] Goal Plan of Care Note [code = 70324-8] Goal Plan of Care Note [code = 64590-6] Goal Plan of Care Note [code = 29678-1] Goal Plan of Care Note [code = 65637-7] Goal Plan of Care Note [code = 08085-6] Goal Plan of Care Note [code = 98989-2] Goal Plan of Care Note [code = 54101-5] Goal Plan of Care Note [code = 37377-4] Goal Plan of Care Note [code = 29701-0] Goal Plan of Care Note [code = 01187-5] Goal Plan of Care Note [code = 84657-5] Goal Plan of Care Note [code = 40905-0] Goal Plan of Care Note [code = 84064-7] Goal Plan of Care Note [code = 97159-5] Goal Plan of Care Note [code = 43432-8] Goal Plan of Care Note [code = 47551-4] Goal Plan of Care Note [code = 10768-0] Goal Plan of Care Note [code = 19082-0] Goal Plan of Care Note [code = 26633-4] Goal Plan of Care Note [code = 83835-7] Goal Plan of Care Note [code = 40922-5] Goal Plan of Care Note [code = 00627-0] Goal Plan of Care Note [code = 51495-5] Goal Plan of Care Note [code = 80875-2] Goal Plan of Care Note [code = 24655-1] Goal Plan of Care Note [code = 24759-9] Goal Plan of Care Note [code = 25085-2] Goal Plan of Care Note [code = 53001-2] Goal Plan of Care Note [code = 52907-0] Goal Plan of Care Note [code = 63240-1] Goal Plan of Care Note [code = 98059-6] Goal Plan of Care Note [code = 74229-4] Goal Plan of Care Note [code = 76447-2] Goal Plan of Care Note [code = 75459-3] Goal Plan of Care Note [code = 36804-2] Goal Plan of Care Note [code = 86197-0] Goal Plan of Care Note [code = 24566-9] Goal Plan of Care Note [code = 59839-0] Goal Plan of Care Note [code = 57324-7] Goal Plan of Care Note [code = 14215-3] Goal Plan of Care Note [code = 49256-9] Goal Plan of Care Note [code = 60416-1] Goal Plan of Care Note [code = 11289-6] Goal Plan of Care Note [code = 89441-4] Goal Plan of Care Note [code = 14835-1] Goal Plan of Care Note [code = 95588-6] Goal Plan of Care Note [code = 31044-7] Goal Plan of Care Note [code = 21521-6] Goal Plan of Care Note [code = 99593-7] Goal Plan of Care Note [code = 50956-1] Goal Plan of Care Note [code = 55720-9] Goal Plan of Care Note [code = 38492-5] Goal Plan of Care Note [code = 79603-4] Goal Plan of Care Note [code = 98425-8] Goal Plan of Care Note [code = 68325-8] Goal Plan of Care Note [code = 20063-5] Goal Plan of Care Note [code = 65671-9] Goal Plan of Care Note [code = 36855-3] Goal Plan of Care Note [code = 96721-3] Goal Plan of Care Note [code = 19004-9] Goal Plan of Care Note [code = 10854-5] Goal Plan of Care Note [code = 11402-1] Goal Plan of Care Note [code = 60601-4] Goal Plan of Care Note [code = 70396-8] Goal Plan of Care Note [code = 03663-2] Goal Plan of Care Note [code = 43026-5] Goal Plan of Care Note [code = 24660-7] Goal Plan of Care Note [code = 45335-2] Goal Plan of Care Note [code = 17932-2] Goal Plan of Care Note [code = 82565-7] Goal Plan of Care Note [code = 42480-3] Goal Plan of Care Note [code = 35799-5] Goal Plan of Care Note [code = 27820-4] Goal Plan of Care Note [code = 70840-6] Goal Plan of Care Note [code = 88245-0] Goal Plan of Care Note [code = 39340-7] Goal Plan of Care Note [code = 99146-0] Goal Plan of Care Note [code = 01322-7] Goal Plan of Care Note [code = 41581-5] Goal Plan of Care Note [code = 23077-4] Goal Plan of Care Note [code = 63410-3] Goal Plan of Care Note [code = 27495-2] Goal Plan of Care Note [code = 03362-8] Goal Plan of Care Note [code = 31854-6] Goal Plan of Care Note [code = 26721-3] Goal Plan of Care Note [code = 83767-3] Goal Plan of Care Note [code = 24964-6] Encounters Start End Encounter Admission Attending Care Care Encounter Source Date/Time Date/Time Type Type Clinicians Facility Department ID 2022-02-11 2022-02-11 Outpatient SFA LYDIA [id number] 022 Cristian 09:04:48 09:04:48 1206 F Jerman 2022-02-10 2022-02-10 Outpatient SFA SFA [id number] 022 Cristian 09:29:34 09:29:34 1205 F Jerman 2022-02-10 2022-02-10 Outpatient [id number]- [id number] 5k76n7-3 00:00:00 00:00:00 Visit 4089-4cab 089-4cab-9 -8ji4-s9h bf5-q3f562 599ljvm57 bafa93 2022-01-10 2022-01-10 Outpatient SFA SFA [id number] 022 Cristian 09:16:14 09:16:14 1104 F Jerman 2022-01-10 2022-01-10 Outpatient z6rbwye0- [id number] f2 accaa6-a 00:00:00 00:00:00 Visit aca9-4c83 ca9-4c83-a -v1cw-yp2 7eb-bc13f3 3j6z046g8 f032f9 2021-12-19 2021-12-[address] [facility] [id number] Cristian 16:11:31 16:11:31 1013 F Jerman 2021-12-19 2021-12-19 Outpatient [id number]- [id number] 466cae-a 00:00:00 00:00:00 Visit o379-761k 770-441f-a -adae-62b amelia-62bace aimdf85cu fd81af 2021-09-17 2021-09-17 Outpatient ccm1pobo- [id number] aa a4ojfx-6 00:00:00 00:00:00 Visit 935a-4f50 35a-4f50-b -b08e-z5d 77d-c2ba85 u867379f4 1264a6 2020-08-03 2020-08-03 Outpatient MATT VÁSQUEZ [facility] [id number] [facility] 10:00:00 10:00:00 MATT SIMPSON pat [facility] 2020-07-25 2020-07-25 Orders Doctor FISH [id number] 00:00:00 00:00:00 Only Unassigned, [place] 350.1.13.10 [place] [facility] 4.2.7.2.686 [id number] 2019-09-26 2019-09-26 Outpatient R RAGHU, [facility] [id number] Univers 16:00:00 16:00:00 WALLY yeager [facility] 2018-10-21 2018-10-21 Telephone Gramm, [facility] [id number] 00:00:00 00:00:00 Natacha Nguyen 350.1.13.10 [place] 4.2.7.2.686 [place] [id number] [facility] [address] Building Results Test Description Test Time Test Comments Results Result Comments Source TSH, THIRD GENERATION 2021-06-27 05:15:49 Test Item Value Reference Range Interpretation Comme nts TSH, THIRD GENERATION (test code = 2821) 2.080 UIU/ML 0.400-4.100 HEMOGLOBIN [id number] 03:46:00 Test Item Value Reference Range Interpretation Comments HEMOGLOBIN A1c (test 6.6 % 4.2-5.6 H [employer]ES code = 32076) ASSOCIATION IDELINES FOR HGB A1C: PREDIABETES/INC REASED [...] INDICATED, ALL TESTING PER FORMED ATCLINICAL PATH [facility], [place]. [address] [place] [address] LABORATORY DIRE CTOR: DIANA RUSS M.D. CLIA NUMBER [id number] [place]. [id number] LIPID [id number] 02:59:52 Test Item Value Reference Range Interpretation [...] MOREINFORMATION , SEE CLIENT ANNOUNCE MENT AT [email or web address] RISK RATIO LDL/HDL 4.02 RATIO <3.22 H (test code = 2238) [id number] 00:00:00 Test Item Value Reference Range Interpretation Comments TSH, THIRD GENERATION (test code 2.080 UIU/ML = 2821) [id number] 00:00:00 Test Item Value Reference Range Interpretation Comments TSH, THIRD GENERATION (test code 2.080 UIU/ML = 2821) [id number] 00:00:00 Test Item Value Reference Range Interpretation Comments TSH, THIRD GENERATION (test code 2.080 UIU/ML = 2821) LIPID [id number] 00:00:00 Test Item Value Reference Range Interpretation Comments CHOLESTEROL (test code = 2210) 292 MG/DL TRIGLYCERIDES (test code = 2232) 184 MG/DL HDL CHOLESTEROL (test code = 2220) 51 MG/DL CALC LDL CHOL (test code = 2237) 205 MG/DL RISK RATIO LDL/HDL (test code = 4.02 RATIO 2238) LIPID [id number] 00:00:00 Test Item Value Reference Range Interpretation Comments CHOLESTEROL (test code = 2210) 292 MG/DL TRIGLYCERIDES (test code = 2232) 184 MG/DL HDL CHOLESTEROL (test code = 2220) 51 MG/DL CALC LDL CHOL (test code = 2237) 205 MG/DL RISK RATIO LDL/HDL (test code = 4.02 RATIO 2238) HEMOGLOBIN [id number] 00:00:00 Test Item Value Reference Range Interpretation Comments HEMOGLOBIN A1c (test code = 01165) 6.6 % HEMOGLOBIN [id number] 00:00:00 Test Item Value Reference Range Interpretation Comments HEMOGLOBIN A1c (test code = 01967) 6.6 % HEMOGLOBIN [id number] 00:00:00 Test Item Value Reference Range Interpretation Comments HEMOGLOBIN A1c (test code = 32185) 6.6 % [id number] 00:00:00 Test Item Value Reference Range Interpretation Comments TSH, THIRD GENERATION (test code 2.080 UIU/ML = 2821) [id number] 00:00:00 Test Item Value Reference Range Interpretation Comments TSH, THIRD GENERATION (test code 2.080 UIU/ML = 2821) [id number] 00:00:00 Test Item Value Reference Range Interpretation Comments TSH, THIRD GENERATION (test code 2.080 UIU/ML = 2821) LIPID [id number] 00:00:00 Test Item Value Reference Range Interpretation Comments CHOLESTEROL (test code = 2210) 292 MG/DL TRIGLYCERIDES (test code = 2232) 184 MG/DL HDL CHOLESTEROL (test code = 2220) 51 MG/DL CALC LDL CHOL (test code = 2237) 205 MG/DL RISK RATIO LDL/HDL (test code = 4.02 RATIO 2238) LIPID [id number] 00:00:00 Test Item Value Reference Range Interpretation Comments CHOLESTEROL (test code = 2210) 292 MG/DL TRIGLYCERIDES (test code = 2232) 184 MG/DL HDL CHOLESTEROL (test code = 2220) 51 MG/DL CALC LDL CHOL (test code = 2237) 205 MG/DL RISK RATIO LDL/HDL (test code = 4.02 RATIO 2238) HEMOGLOBIN [id number] 00:00:00 Test Item Value Reference Range Interpretation Comments HEMOGLOBIN A1c (test code = 10258) 6.6 % HEMOGLOBIN [id number] 00:00:00 Test Item Value Reference Range Interpretation Comments HEMOGLOBIN A1c (test code = 91107) 6.6 % HEMOGLOBIN [id number] 00:00:00 Test Item Value Reference Range Interpretation Comments HEMOGLOBIN A1c (test code = 92836) 6.6 % [id number] 00:00:00 Test Item Value Reference Range Interpretation Comments TSH, THIRD GENERATION (test code 2.080 UIU/ML = 2821) [id number] 00:00:00 Test Item Value Reference Range Interpretation Comments TSH, THIRD GENERATION (test code 2.080 UIU/ML = 2821) LIPID [id number] 00:00:00 Test Item Value Reference Range Interpretation Comments CHOLESTEROL (test code = 2210) 292 MG/DL TRIGLYCERIDES (test code = 2232) 184 MG/DL HDL CHOLESTEROL (test code = 2220) 51 MG/DL CALC LDL CHOL (test code = 2237) 205 MG/DL RISK RATIO LDL/HDL (test code = 4.02 RATIO 2238) HEMOGLOBIN [id number] 00:00:00 Test Item Value Reference Range Interpretation Comments HEMOGLOBIN A1c (test code = 81419) 6.6 % HEMOGLOBIN [id number] 00:00:00 Test Item Value Reference Range Interpretation Comments HEMOGLOBIN A1c (test code = 54405) 6.6 % [id number] 00:00:00 Test Item Value Reference Range Interpretation Comments TSH, THIRD GENERATION (test code 2.080 UIU/ML = 2821) [id number] 00:00:00 Test Item Value Reference Range Interpretation Comments TSH, THIRD GENERATION (test code 2.080 UIU/ML = 2821) [id number] 00:00:00 Test Item Value Reference Range Interpretation Comments TSH, THIRD GENERATION (test code 2.080 UIU/ML = 2821) LIPID [id number] 00:00:00 Test Item Value Reference Range Interpretation Comments CHOLESTEROL (test code = 2210) 292 MG/DL TRIGLYCERIDES (test code = 2232) 184 MG/DL HDL CHOLESTEROL (test code = 2220) 51 MG/DL CALC LDL CHOL (test code = 2237) 205 MG/DL RISK RATIO LDL/HDL (test code = 4.02 RATIO 2238) LIPID [id number] 00:00:00 Test Item Value Reference Range Interpretation Comments CHOLESTEROL (test code = 2210) 292 MG/DL TRIGLYCERIDES (test code = 2232) 184 MG/DL HDL CHOLESTEROL (test code = 2220) 51 MG/DL CALC LDL CHOL (test code = 2237) 205 MG/DL RISK RATIO LDL/HDL (test code = 4.02 RATIO 2238) HEMOGLOBIN [id number] 00:00:00 Test Item Value Reference Range Interpretation Comments HEMOGLOBIN A1c (test code = 53445) 6.6 % HEMOGLOBIN [id number] 00:00:00 Test Item Value Reference Range Interpretation Comments HEMOGLOBIN A1c (test code = 56361) 6.6 % HEMOGLOBIN [id number] 00:00:00 Test Item Value Reference Range Interpretation Comments HEMOGLOBIN A1c (test code = 58443) 6.6 % HEMOGLOBIN [id number] 00:00:00 Test Item Value Reference Range Interpretation Comments HEMOGLOBIN A1c (test code = 31635) 6.8 % HEMOGLOBIN [id number] 00:00:00 Test Item Value Reference Range Interpretation Comments HEMOGLOBIN A1c (test code = 74395) 6.8 % HEMOGLOBIN [id number] 00:00:00 Test Item Value Reference Range Interpretation Comments HEMOGLOBIN A1c (test code = 71272) 6.8 % LIPID [id number] 00:00:00 Test Item Value Reference Range Interpretation Comments CHOLESTEROL (test code = 2210) 303 MG/DL TRIGLYCERIDES (test code = 2232) 191 MG/DL HDL CHOLESTEROL (test code = 2220) 61 MG/DL CALC LDL CHOL (test code = 2237) 205 MG/DL RISK RATIO LDL/HDL (test code = 3.36 RATIO 2238) LIPID [id number] 00:00:00 Test Item Value Reference Range Interpretation Comments CHOLESTEROL (test code = 2210) 303 MG/DL TRIGLYCERIDES (test code = 2232) 191 MG/DL HDL CHOLESTEROL (test code = 2220) 61 MG/DL CALC LDL CHOL (test code = 2237) 205 MG/DL RISK RATIO LDL/HDL (test code = 3.36 RATIO 2238) [id number] 00:00:00 Test Item Value Reference Range Interpretation Comments TSH, THIRD GENERATION (test code 0.769 UIU/ML = 2821) [id number] 00:00:00 Test Item Value Reference Range Interpretation Comments TSH, THIRD GENERATION (test code 0.769 UIU/ML = 2821) [id number] 00:00:00 Test Item Value Reference Range Interpretation Comments TSH, THIRD GENERATION (test code 0.769 UIU/ML = 2821) COMPREHENSIVE METABOLIC [id number] 00:00:00 Test Item Value Reference Range Interpretation Comments GLUCOSE (test code = 2217) 131 MG/DL BUN (test code = 2208) 13 MG/DL CREATININE (test code = 2214) 0.65 MG/DL eGFR AMER. (test code 113 ML/MIN/1.73 = 96151) eGFR NON- AMER. (test 97 ML/MIN/1.73 code = 89044) CALC BUN/CREAT (test code = 20 RATIO [...] code = 2219) 23 U/L COMPREHENSIVE METABOLIC [id number] 00:00:00 Test Item Value Reference Range Interpretation Comments GLUCOSE (test code = 2217) 131 MG/DL BUN (test code = 2208) 13 MG/DL CREATININE (test code = 2214) 0.65 MG/DL eGFR AMER. (test code 113 ML/MIN/1.73 = 75309) eGFR NON- AMER. (test 97 ML/MIN/1.73 code = 19519) CALC BUN/CREAT (test code = 20 RATIO [...] (test code = 2219) 23 U/L HEMOGLOBIN [id number] 00:00:00 Test Item Value Reference Range Interpretation Comments HEMOGLOBIN A1c (test code = 36300) 6.8 % HEMOGLOBIN [id number] 00:00:00 Test Item Value Reference Range Interpretation Comments HEMOGLOBIN A1c (test code = 90050) 6.8 % HEMOGLOBIN [id number] 00:00:00 Test Item Value Reference Range Interpretation Comments HEMOGLOBIN A1c (test code = 95265) 6.8 % LIPID [id number] 00:00:00 Test Item Value Reference Range Interpretation Comments CHOLESTEROL (test code = 2210) 303 MG/DL TRIGLYCERIDES (test code = 2232) 191 MG/DL HDL CHOLESTEROL (test code = 2220) 61 MG/DL CALC LDL CHOL (test code = 2237) 205 MG/DL RISK RATIO LDL/HDL (test code = 3.36 RATIO 2238) LIPID [id number] 00:00:00 Test Item Value Reference Range Interpretation Comments CHOLESTEROL (test code = 2210) 303 MG/DL TRIGLYCERIDES (test code = 2232) 191 MG/DL HDL CHOLESTEROL (test code = 2220) 61 MG/DL CALC LDL CHOL (test code = 2237) 205 MG/DL RISK RATIO LDL/HDL (test code = 3.36 RATIO 2238) [id number] 00:00:00 Test Item Value Reference Range Interpretation Comments TSH, THIRD GENERATION (test code 0.769 UIU/ML = 2821) [id number] 00:00:00 Test Item Value Reference Range Interpretation Comments TSH, THIRD GENERATION (test code 0.769 UIU/ML = 2821) [id number] 00:00:00 Test Item Value Reference Range Interpretation Comments TSH, THIRD GENERATION (test code 0.769 UIU/ML = 2821) COMPREHENSIVE METABOLIC [id number] 00:00:00 Test Item Value Reference Range Interpretation Comments GLUCOSE (test code = 2217) 131 MG/DL BUN (test code = 2208) 13 MG/DL CREATININE (test code = 2214) 0.65 MG/DL eGFR AMER. (test code 113 ML/MIN/1.73 = 08545) eGFR NON- AMER. (test 97 ML/MIN/1.73 code = 59545) CALC BUN/CREAT (test code = 20 RATIO [...] code = 2219) 23 U/L COMPREHENSIVE METABOLIC [id number] 00:00:00 Test Item Value Reference Range Interpretation Comments GLUCOSE (test code = 2217) 131 MG/DL BUN (test code = 2208) 13 MG/DL CREATININE (test code = 2214) 0.65 MG/DL eGFR AMER. (test code 113 ML/MIN/1.73 = 48702) eGFR NON- AMER. (test 97 ML/MIN/1.73 code = 33649) CALC BUN/CREAT (test code = 20 RATIO [...] (test code = 2219) 23 U/L HEMOGLOBIN [id number] 00:00:00 Test Item Value Reference Range Interpretation Comments HEMOGLOBIN A1c (test code = 17730) 6.8 % HEMOGLOBIN [id number] 00:00:00 Test Item Value Reference Range Interpretation Comments HEMOGLOBIN A1c (test code = 67909) 6.8 % LIPID [id number] 00:00:00 Test Item Value Reference Range Interpretation Comments CHOLESTEROL (test code = 2210) 303 MG/DL TRIGLYCERIDES (test code = 2232) 191 MG/DL HDL CHOLESTEROL (test code = 2220) 61 MG/DL CALC LDL CHOL (test code = 2237) 205 MG/DL RISK RATIO LDL/HDL (test code = 3.36 RATIO 2238) [id number] 00:00:00 Test Item Value Reference Range Interpretation Comments TSH, THIRD GENERATION (test code 0.769 UIU/ML = 2821) [id number] 00:00:00 Test Item Value Reference Range Interpretation Comments TSH, THIRD GENERATION (test code 0.769 UIU/ML = 2821) COMPREHENSIVE METABOLIC [id number] 00:00:00 Test Item Value Reference Range Interpretation Comments GLUCOSE (test code = 2217) 131 MG/DL BUN (test code = 2208) 13 MG/DL CREATININE (test code = 2214) 0.65 MG/DL eGFR AMER. (test code 113 ML/MIN/1.73 = 67144) eGFR NON- AMER. (test 97 ML/MIN/1.73 code = 16678) CALC BUN/CREAT (test code = 20 RATIO [...] (test code = 2219) 23 U/L HEMOGLOBIN [id number] 00:00:00 Test Item Value Reference Range Interpretation Comments HEMOGLOBIN A1c (test code = 87064) 6.8 % HEMOGLOBIN [id number] 00:00:00 Test Item Value Reference Range Interpretation Comments HEMOGLOBIN A1c (test code = 55127) 6.8 % HEMOGLOBIN [id number] 00:00:00 Test Item Value Reference Range Interpretation Comments HEMOGLOBIN A1c (test code = 48417) 6.8 % LIPID [id number] 00:00:00 Test Item Value Reference Range Interpretation Comments CHOLESTEROL (test code = 2210) 303 MG/DL TRIGLYCERIDES (test code = 2232) 191 MG/DL HDL CHOLESTEROL (test code = 2220) 61 MG/DL CALC LDL CHOL (test code = 2237) 205 MG/DL RISK RATIO LDL/HDL (test code = 3.36 RATIO 2238) LIPID [id number] 00:00:00 Test Item Value Reference Range Interpretation Comments CHOLESTEROL (test code = 2210) 303 MG/DL TRIGLYCERIDES (test code = 2232) 191 MG/DL HDL CHOLESTEROL (test code = 2220) 61 MG/DL CALC LDL CHOL (test code = 2237) 205 MG/DL RISK RATIO LDL/HDL (test code = 3.36 RATIO 2238) [id number] 00:00:00 Test Item Value Reference Range Interpretation Comments TSH, THIRD GENERATION (test code 0.769 UIU/ML = 2821) [id number] 00:00:00 Test Item Value Reference Range Interpretation Comments TSH, THIRD GENERATION (test code 0.769 UIU/ML = 2821) [id number] 00:00:00 Test Item Value Reference Range Interpretation Comments TSH, THIRD GENERATION (test code 0.769 UIU/ML = 2821) COMPREHENSIVE METABOLIC [id number] 00:00:00 Test Item Value Reference Range Interpretation Comments GLUCOSE (test code = 2217) 131 MG/DL BUN (test code = 2208) 13 MG/DL CREATININE (test code = 2214) 0.65 MG/DL eGFR AMER. (test code 113 ML/MIN/1.73 = 60209) eGFR NON- AMER. (test 97 ML/MIN/1.73 code = 05568) CALC BUN/CREAT (test code = 20 RATIO [...] code = 2219) 23 U/L COMPREHENSIVE METABOLIC [id number] 00:00:00 Test Item Value Reference Range Interpretation Comments GLUCOSE (test code = 2217) 131 MG/DL BUN (test code = 2208) 13 MG/DL CREATININE (test code = 2214) 0.65 MG/DL eGFR AMER. (test code 113 ML/MIN/1.73 = 65381) eGFR NON- AMER. (test 97 ML/MIN/1.73 code = 98469) CALC BUN/CREAT (test code = 20 RATIO [...] (test code = 2219) 23 U/L HEMOGLOBIN [id number] 00:00:00 Test Item Value Reference Range Interpretation Comments HEMOGLOBIN A1c (test code = 10102) 6.6 % HEMOGLOBIN [id number] 00:00:00 Test Item Value Reference Range Interpretation Comments HEMOGLOBIN A1c (test code = 57371) 6.6 % HEMOGLOBIN [id number] 00:00:00 Test Item Value Reference Range Interpretation Comments HEMOGLOBIN A1c (test code = 72418) 6.6 % LIPID [id number] 00:00:00 Test Item Value Reference Range Interpretation Comments CHOLESTEROL (test code = 2210) 261 MG/DL TRIGLYCERIDES (test code = 2232) 159 MG/DL HDL CHOLESTEROL (test code = 2220) 82 MG/DL CALC LDL CHOL (test code = 2237) 150 MG/DL RISK RATIO LDL/HDL (test code = 1.83 RATIO 2238) LIPID [id number] 00:00:00 Test Item Value Reference Range Interpretation Comments CHOLESTEROL (test code = 2210) 261 MG/DL TRIGLYCERIDES (test code = 2232) 159 MG/DL HDL CHOLESTEROL (test code = 2220) 82 MG/DL CALC LDL CHOL (test code = 2237) 150 MG/DL RISK RATIO LDL/HDL (test code = 1.83 RATIO 2238) COMPREHENSIVE METABOLIC [id number] 00:00:00 Test Item Value Reference Range Interpretation Comments GLUCOSE (test code = 2217) 144 MG/DL BUN (test code = 2208) 15 MG/DL CREATININE (test code = 2214) 0.85 MG/DL eGFR AMER. (test code 87 ML/MIN/1.73 = 14671) eGFR NON- AMER. (test 75 ML/MIN/1.73 code = 32394) CALC BUN/CREAT (test code = 18 RATIO [...] code = 2219) 50 U/L COMPREHENSIVE METABOLIC [id number] 00:00:00 Test Item Value Reference Range Interpretation Comments GLUCOSE (test code = 2217) 144 MG/DL BUN (test code = 2208) 15 MG/DL CREATININE (test code = 2214) 0.85 MG/DL eGFR AMER. (test code 87 ML/MIN/1.73 = 38049) eGFR NON- AMER. (test 75 ML/MIN/1.73 code = 60618) CALC BUN/CREAT (test code = 18 RATIO [...] THYROX. BIND. CAPAC. (test code 1.1 = 50613) T4 (THYROXINE) (test code = 4.3 UG/DL 2819) CORRECTED T4 (FTI) (test code = 3.9 UG/DL 2820) TSH, THIRD GENERATION (test 18.900 UIU/ML code = 2821) THYROID II PROFILE (T3U, T4, T7, TSH)2020-05-23 00:00:00 Test Item Value Reference Range Interpretation Comments T-UPTAKE (test code = 2816) 30.2 % THYROX. BIND. CAPAC. (test code 1.1 = 49808) T4 (THYROXINE) (test code = 4.3 UG/DL 2819) CORRECTED T4 (FTI) (test code = 3.9 UG/DL 2820) TSH, THIRD GENERATION (test 18.900 UIU/ML code = 2821) HEMOGLOBIN [id number] 00:00:00 Test Item Value Reference Range Interpretation Comments HEMOGLOBIN A1c (test code = 23066) 6.6 % HEMOGLOBIN [id number] 00:00:00 Test Item Value Reference Range Interpretation Comments HEMOGLOBIN A1c (test code = 13777) 6.6 % HEMOGLOBIN [id number] 00:00:00 Test Item Value Reference Range Interpretation Comments HEMOGLOBIN A1c (test code = 17265) 6.6 % LIPID [id number] 00:00:00 Test Item Value Reference Range Interpretation Comments CHOLESTEROL (test code = 2210) 261 MG/DL TRIGLYCERIDES (test code = 2232) 159 MG/DL HDL CHOLESTEROL (test code = 2220) 82 MG/DL CALC LDL CHOL (test code = 2237) 150 MG/DL RISK RATIO LDL/HDL (test code = 1.83 RATIO 2238) LIPID [id number] 00:00:00 Test Item Value Reference Range Interpretation Comments CHOLESTEROL (test code = 2210) 261 MG/DL TRIGLYCERIDES (test code = 2232) 159 MG/DL HDL CHOLESTEROL (test code = 2220) 82 MG/DL CALC LDL CHOL (test code = 2237) 150 MG/DL RISK RATIO LDL/HDL (test code = 1.83 RATIO 2238) COMPREHENSIVE METABOLIC [id number] 00:00:00 Test Item Value Reference Range Interpretation Comments GLUCOSE (test code = 2217) 144 MG/DL BUN (test code = 2208) 15 MG/DL CREATININE (test code = 2214) 0.85 MG/DL eGFR AMER. (test code 87 ML/MIN/1.73 = 98220) eGFR NON- AMER. (test 75 ML/MIN/1.73 code = 50591) CALC BUN/CREAT (test code = 18 RATIO [...] code = 2219) 50 U/L COMPREHENSIVE METABOLIC [id number] 00:00:00 Test Item Value Reference Range Interpretation Comments GLUCOSE (test code = 2217) 144 MG/DL BUN (test code = 2208) 15 MG/DL CREATININE (test code = 2214) 0.85 MG/DL eGFR AMER. (test code 87 ML/MIN/1.73 = 12979) eGFR NON- AMER. (test 75 ML/MIN/1.73 code = 88624) CALC BUN/CREAT (test code = 18 RATIO [...] THYROX. BIND. CAPAC. (test code 1.1 = 88604) T4 (THYROXINE) (test code = 4.3 UG/DL 2818) CORRECTED T4 (FTI) (test code = 3.9 UG/DL 2820) TSH, THIRD GENERATION (test 18.900 UIU/ML code = 2821) THYROID II PROFILE (T3U, T4, T7, TSH)2020-05-23 00:00:00 Test Item Value Reference Range Interpretation Comments T-UPTAKE (test code = 2817) 30.2 % THYROX. BIND. CAPAC. (test code 1.1 = 17797) T4 (THYROXINE) (test code = 4.3 UG/DL 2819) CORRECTED T4 (FTI) (test code = 3.9 UG/DL 2820) TSH, THIRD GENERATION (test 18.900 UIU/ML code = 2821) HEMOGLOBIN [id number] 00:00:00 Test Item Value Reference Range Interpretation Comments HEMOGLOBIN A1c (test code = 31215) 6.6 % HEMOGLOBIN [id number] 00:00:00 Test Item Value Reference Range Interpretation Comments HEMOGLOBIN A1c (test code = 48144) 6.6 % LIPID [id number] 00:00:00 Test Item Value Reference Range Interpretation Comments CHOLESTEROL (test code = 2210) 261 MG/DL TRIGLYCERIDES (test code = 2232) 159 MG/DL HDL CHOLESTEROL (test code = 2220) 82 MG/DL CALC LDL CHOL (test code = 2237) 150 MG/DL RISK RATIO LDL/HDL (test code = 1.83 RATIO 2238) COMPREHENSIVE METABOLIC [id number] 00:00:00 Test Item Value Reference Range Interpretation Comments GLUCOSE (test code = 2217) 144 MG/DL BUN (test code = 2208) 15 MG/DL CREATININE (test code = 2214) 0.85 MG/DL eGFR AMER. (test code 87 ML/MIN/1.73 = 67687) eGFR NON- AMER. (test 75 ML/MIN/1.73 code = 10867) CALC BUN/CREAT (test code = 18 RATIO [...] THYROX. BIND. CAPAC. (test code 1.1 = 15155) T4 (THYROXINE) (test code = 4.3 UG/DL 281) CORRECTED T4 (FTI) (test code = 3.9 UG/DL 2820) TSH, THIRD GENERATION (test 18.900 UIU/ML code = 2821) HEMOGLOBIN [id number] 00:00:00 Test Item Value Reference Range Interpretation Comments HEMOGLOBIN A1c (test code = 85062) 6.6 % HEMOGLOBIN [id number] 00:00:00 Test Item Value Reference Range Interpretation Comments HEMOGLOBIN A1c (test code = 64390) 6.6 % HEMOGLOBIN [id number] 00:00:00 Test Item Value Reference Range Interpretation Comments HEMOGLOBIN A1c (test code = 75680) 6.6 % LIPID [id number] 00:00:00 Test Item Value Reference Range Interpretation Comments CHOLESTEROL (test code = 2210) 261 MG/DL TRIGLYCERIDES (test code = 2232) 159 MG/DL HDL CHOLESTEROL (test code = 2220) 82 MG/DL CALC LDL CHOL (test code = 2237) 150 MG/DL RISK RATIO LDL/HDL (test code = 1.83 RATIO 2238) LIPID [id number] 00:00:00 Test Item Value Reference Range Interpretation Comments CHOLESTEROL (test code = 2210) 261 MG/DL TRIGLYCERIDES (test code = 2232) 159 MG/DL HDL CHOLESTEROL (test code = 2220) 82 MG/DL CALC LDL CHOL (test code = 2237) 150 MG/DL RISK RATIO LDL/HDL (test code = 1.83 RATIO 2238) COMPREHENSIVE METABOLIC [id number] 00:00:00 Test Item Value Reference Range Interpretation Comments GLUCOSE (test code = 2217) 144 MG/DL BUN (test code = 2208) 15 MG/DL CREATININE (test code = 2214) 0.85 MG/DL eGFR AMER. (test code 87 ML/MIN/1.73 = 28914) eGFR NON- AMER. (test 75 ML/MIN/1.73 code = 45912) CALC BUN/CREAT (test code = 18 RATIO [...] code = 2219) 50 U/L COMPREHENSIVE METABOLIC [id number] 00:00:00 Test Item Value Reference Range Interpretation Comments GLUCOSE (test code = 2217) 144 MG/DL BUN (test code = 2208) 15 MG/DL CREATININE (test code = 2214) 0.85 MG/DL eGFR AMER. (test code 87 ML/MIN/1.73 = 74118) eGFR NON- AMER. (test 75 ML/MIN/1.73 code = 34658) CALC BUN/CREAT (test code = 18 RATIO [...] THYROX. BIND. CAPAC. (test code 1.1 = 53285) T4 (THYROXINE) (test code = 4.3 UG/DL 2819) CORRECTED T4 (FTI) (test code = 3.9 UG/DL 2820) TSH, THIRD GENERATION (test 18.900 UIU/ML code = 2821) THYROID II PROFILE (T3U, T4, T7, TSH)2020-05-23 00:00:00 Test Item Value Reference Range Interpretation Comments T-UPTAKE (test code = 2817) 30.2 % THYROX. BIND. CAPAC. (test code 1.1 = 76680) T4 (THYROXINE) (test code = 4.3 UG/DL 2819) CORRECTED T4 (FTI) (test code = 3.9 UG/DL 2820) TSH, THIRD GENERATION (test 18.900 UIU/ML code = 2821) HEMOGLOBIN [id number] 00:00:00 Test Item Value Reference Range Interpretation Comments HEMOGLOBIN A1c (test code = 47217) 6.7 % HEMOGLOBIN [id number] 00:00:00 Test Item Value Reference Range Interpretation Comments HEMOGLOBIN A1c (test code = 18352) 6.7 % HEMOGLOBIN [id number] 00:00:00 Test Item Value Reference Range Interpretation Comments HEMOGLOBIN A1c (test code = 11153) 6.7 % LIPID [id number] 00:00:00 Test Item Value Reference Range Interpretation Comments CHOLESTEROL (test code = 2210) 267 MG/DL TRIGLYCERIDES (test code = 2232) 137 MG/DL HDL CHOLESTEROL (test code = 2220) 48 MG/DL CALC LDL CHOL (test code = 2237) 192 MG/DL RISK RATIO LDL/HDL (test code = 4.00 RATIO 2238) LIPID [id number] 00:00:00 Test Item Value Reference Range Interpretation Comments CHOLESTEROL (test code = 2210) 267 MG/DL TRIGLYCERIDES (test code = 2232) 137 MG/DL HDL CHOLESTEROL (test code = 2220) 48 MG/DL CALC LDL CHOL (test code = 2237) 192 MG/DL RISK RATIO LDL/HDL (test code = 4.00 RATIO 2238) COMPREHENSIVE METABOLIC [id number] 00:00:00 Test Item Value Reference Range Interpretation Comments GLUCOSE (test code = 2217) 155 MG/DL BUN (test code = 2208) 14 MG/DL CREATININE (test code = 2214) 0.52 MG/DL eGFR AMER. (test code 122 ML/MIN/1.73 = 95479) eGFR NON- AMER. (test 105 ML/MIN/1.73 code = 85964) CALC BUN/CREAT (test code = 27 RATIO [...] code = 2219) 27 U/L COMPREHENSIVE METABOLIC [id number] 00:00:00 Test Item Value Reference Range Interpretation Comments GLUCOSE (test code = 2217) 155 MG/DL BUN (test code = 2208) 14 MG/DL CREATININE (test code = 2214) 0.52 MG/DL eGFR AMER. (test code 122 ML/MIN/1.73 = 58306) eGFR NON- AMER. (test 105 ML/MIN/1.73 code = 30661) CALC BUN/CREAT (test code = 27 RATIO [...] THYROX. BIND. CAPAC. (test code 1.0 = 05224) T4 (THYROXINE) (test code = 4.7 UG/DL 2819) CORRECTED T4 (FTI) (test code = 4.7 UG/DL 2820) TSH, THIRD GENERATION (test code 0.201 UIU/ML = 2821) THYROID II PROFILE (T3U, T4, T7, TSH)2019 00:00:00 Test Item Value Reference Range Interpretation Comments T-UPTAKE (test code = 7) 33.1 % THYROX. BIND. CAPAC. (test code 1.0 = 83899) T4 (THYROXINE) (test code = 4.7 UG/DL 2819) CORRECTED T4 (FTI) (test code = 4.7 UG/DL 2820) TSH, THIRD GENERATION (test code 0.201 UIU/ML = 2821) HEMOGLOBIN [id number] 00:00:00 Test Item Value Reference Range Interpretation Comments HEMOGLOBIN A1c (test code = 18233) 6.7 % HEMOGLOBIN [id number] 00:00:00 Test Item Value Reference Range Interpretation Comments HEMOGLOBIN A1c (test code = 66194) 6.7 % HEMOGLOBIN [id number] 00:00:00 Test Item Value Reference Range Interpretation Comments HEMOGLOBIN A1c (test code = 40102) 6.7 % LIPID [id number] 00:00:00 Test Item Value Reference Range Interpretation Comments CHOLESTEROL (test code = 2210) 267 MG/DL TRIGLYCERIDES (test code = 2232) 137 MG/DL HDL CHOLESTEROL (test code = 2220) 48 MG/DL CALC LDL CHOL (test code = 2237) 192 MG/DL RISK RATIO LDL/HDL (test code = 4.00 RATIO 2238) LIPID [id number] 00:00:00 Test Item Value Reference Range Interpretation Comments CHOLESTEROL (test code = 2210) 267 MG/DL TRIGLYCERIDES (test code = 2232) 137 MG/DL HDL CHOLESTEROL (test code = 2220) 48 MG/DL CALC LDL CHOL (test code = 2237) 192 MG/DL RISK RATIO LDL/HDL (test code = 4.00 RATIO 2238) COMPREHENSIVE METABOLIC [id number] 00:00:00 Test Item Value Reference Range Interpretation Comments GLUCOSE (test code = 2217) 155 MG/DL BUN (test code = 2208) 14 MG/DL CREATININE (test code = 2214) 0.52 MG/DL eGFR AMER. (test code 122 ML/MIN/1.73 = 08808) eGFR NON- AMER. (test 105 ML/MIN/1.73 code = 88274) CALC BUN/CREAT (test code = 27 RATIO [...] code = 2219) 27 U/L COMPREHENSIVE METABOLIC [id number] 00:00:00 Test Item Value Reference Range Interpretation Comments GLUCOSE (test code = 2217) 155 MG/DL BUN (test code = 2208) 14 MG/DL CREATININE (test code = 2214) 0.52 MG/DL eGFR AMER. (test code 122 ML/MIN/1.73 = 38226) eGFR NON- AMER. (test 105 ML/MIN/1.73 code = 32093) CALC BUN/CREAT (test code = 27 RATIO [...] THYROX. BIND. CAPAC. (test code 1.0 = 52888) T4 (THYROXINE) (test code = 4.7 UG/DL 2819) CORRECTED T4 (FTI) (test code = 4.7 UG/DL 2820) TSH, THIRD GENERATION (test code 0.201 UIU/ML = 2821) THYROID II PROFILE (T3U, T4, T7, TSH)2019 00:00:00 Test Item Value Reference Range Interpretation Comments T-UPTAKE (test code = 2817) 33.1 % THYROX. BIND. CAPAC. (test code 1.0 = 57351) T4 (THYROXINE) (test code = 4.7 UG/DL 2819) CORRECTED T4 (FTI) (test code = 4.7 UG/DL 2820) TSH, THIRD GENERATION (test code 0.201 UIU/ML = 2821) HEMOGLOBIN [id number] 00:00:00 Test Item Value Reference Range Interpretation Comments HEMOGLOBIN A1c (test code = 06963) 6.7 % HEMOGLOBIN [id number] 00:00:00 Test Item Value Reference Range Interpretation Comments HEMOGLOBIN A1c (test code = 00307) 6.7 % LIPID [id number] 00:00:00 Test Item Value Reference Range Interpretation Comments CHOLESTEROL (test code = 2210) 267 MG/DL TRIGLYCERIDES (test code = 2232) 137 MG/DL HDL CHOLESTEROL (test code = 2220) 48 MG/DL CALC LDL CHOL (test code = 2237) 192 MG/DL RISK RATIO LDL/HDL (test code = 4.00 RATIO 2238) COMPREHENSIVE METABOLIC [id number] 00:00:00 Test Item Value Reference Range Interpretation Comments GLUCOSE (test code = 2217) 155 MG/DL BUN (test code = 2208) 14 MG/DL CREATININE (test code = 2214) 0.52 MG/DL eGFR AMER. (test code 122 ML/MIN/1.73 = 74199) eGFR NON- AMER. (test 105 ML/MIN/1.73 code = 66796) CALC BUN/CREAT (test code = 27 RATIO [...] THYROX. BIND. CAPAC. (test code 1.0 = 43800) T4 (THYROXINE) (test code = 4.7 UG/DL 2819) CORRECTED T4 (FTI) (test code = 4.7 UG/DL 2820) TSH, THIRD GENERATION (test code 0.201 UIU/ML = 2821) HEMOGLOBIN [id number] 00:00:00 Test Item Value Reference Range Interpretation Comments HEMOGLOBIN A1c (test code = 32575) 6.7 % HEMOGLOBIN [id number] 00:00:00 Test Item Value Reference Range Interpretation Comments HEMOGLOBIN A1c (test code = 90743) 6.7 % HEMOGLOBIN [id number] 00:00:00 Test Item Value Reference Range Interpretation Comments HEMOGLOBIN A1c (test code = 53183) 6.7 % LIPID [id number] 00:00:00 Test Item Value Reference Range Interpretation Comments CHOLESTEROL (test code = 2210) 267 MG/DL TRIGLYCERIDES (test code = 2232) 137 MG/DL HDL CHOLESTEROL (test code = 2220) 48 MG/DL CALC LDL CHOL (test code = 2237) 192 MG/DL RISK RATIO LDL/HDL (test code = 4.00 RATIO 2238) LIPID [id number] 00:00:00 Test Item Value Reference Range Interpretation Comments CHOLESTEROL (test code = 2210) 267 MG/DL TRIGLYCERIDES (test code = 2232) 137 MG/DL HDL CHOLESTEROL (test code = 2220) 48 MG/DL CALC LDL CHOL (test code = 2237) 192 MG/DL RISK RATIO LDL/HDL (test code = 4.00 RATIO 2238) COMPREHENSIVE METABOLIC [id number] 00:00:00 Test Item Value Reference Range Interpretation Comments GLUCOSE (test code = 2217) 155 MG/DL BUN (test code = 2208) 14 MG/DL CREATININE (test code = 2214) 0.52 MG/DL eGFR AMER. (test code 122 ML/MIN/1.73 = 79517) eGFR NON- AMER. (test 105 ML/MIN/1.73 code = 63147) CALC BUN/CREAT (test code = 27 RATIO [...] code = 2219) 27 U/L COMPREHENSIVE METABOLIC [id number] 00:00:00 Test Item Value Reference Range Interpretation Comments GLUCOSE (test code = 2217) 155 MG/DL BUN (test code = 2208) 14 MG/DL CREATININE (test code = 2214) 0.52 MG/DL eGFR AMER. (test code 122 ML/MIN/1.73 = 81077) eGFR NON- AMER. (test 105 ML/MIN/1.73 code = 76171) CALC BUN/CREAT (test code = 27 RATIO [...] THYROX. BIND. CAPAC. (test code 1.0 = 87970) T4 (THYROXINE) (test code = 4.7 UG/DL 2818) CORRECTED T4 (FTI) (test code = 4.7 UG/DL 2820) TSH, THIRD GENERATION (test code 0.201 UIU/ML = 2821) THYROID II PROFILE (T3U, T4, T7, TSH)2019 00:00:00 Test Item Value Reference Range Interpretation Comments T-UPTAKE (test code = 2817) 33.1 % THYROX. BIND. CAPAC. (test code 1.0 = 79573) T4 (THYROXINE) (test code = 4.7 UG/DL 2819) CORRECTED T4 (FTI) (test code = 4.7 UG/DL 2820) TSH, THIRD GENERATION (test code 0.201 UIU/ML = 2821) SARS-CoV-2 (COVID-19) by RT-PCR (HIGH RISK)2019-09-18 00:00:00 Test Item Value Reference Range Interpretation Comments SARS-CoV-2 INTERPRETATION (test NEGATIVE code = 16372) SOURCE (test code = 15451) NOT SPECIFIED SARS-CoV-2 (COVID-19) by RT-PCR (HIGH RISK)2019-09-18 00:00:00 Test Item Value Reference Range Interpretation Comments SARS-CoV-2 INTERPRETATION (test NEGATIVE code = 04655) SOURCE (test code = 66768) NOT SPECIFIED SARS-CoV-2 (COVID-19) by RT-PCR (HIGH RISK)2019-09-18 00:00:00 Test Item Value Reference Range Interpretation Comments SARS-CoV-2 INTERPRETATION (test NEGATIVE code = 73977) SOURCE (test code = 93346) NOT SPECIFIED SARS-CoV-2 (COVID-19) by RT-PCR (HIGH RISK)2019-09-18 00:00:00 Test Item Value Reference Range Interpretation Comments SARS-CoV-2 INTERPRETATION (test NEGATIVE code = 11869) SOURCE (test code = 38316) NOT SPECIFIED SARS-CoV-2 (COVID-19) by RT-PCR (HIGH RISK)2019-09-18 00:00:00 Test Item Value Reference Range Interpretation Comments SARS-CoV-2 INTERPRETATION (test NEGATIVE code = 95369) SOURCE (test code = 57705) NOT SPECIFIED SARS-CoV-2 (COVID-19) by RT-PCR (HIGH RISK)2019-09-18 00:00:00 Test Item Value Reference Range Interpretation Comments SARS-CoV-2 INTERPRETATION (test NEGATIVE code = 45982) SOURCE (test code = 45648) NOT SPECIFIED SARS-CoV-2 (COVID-19) by RT-PCR (HIGH RISK)2019-09-18 00:00:00 Test Item Value Reference Range Interpretation Comments SARS-CoV-2 INTERPRETATION (test NEGATIVE code = 93821) SOURCE (test code = 49531) NOT SPECIFIED [id number] 00:00:00 Test Item Value Reference Range Interpretation Comments TSH, THIRD GENERATION (test code 2.490 UIU/ML = 2821) [id number] 00:00:00 Test Item Value Reference Range Interpretation Comments TSH, THIRD GENERATION (test code 2.490 UIU/ML = 2821) [id number] 00:00:00 Test Item Value Reference Range Interpretation Comments TSH, THIRD GENERATION (test code 2.490 UIU/ML = 2821) HEMOGLOBIN [id number] 00:00:00 Test Item Value Reference Range Interpretation Comments HEMOGLOBIN A1c (test code = 87790) 6.4 % HEMOGLOBIN [id number] 00:00:00 Test Item Value Reference Range Interpretation Comments HEMOGLOBIN A1c (test code = 38141) 6.4 % HEMOGLOBIN [id number] 00:00:00 Test Item Value Reference Range Interpretation Comments HEMOGLOBIN A1c (test code = 57023) 6.4 % COMPREHENSIVE METABOLIC [id number] 00:00:00 Test Item Value Reference Range Interpretation Comments GLUCOSE (test code = 2217) 206 MG/DL BUN (test code = 2208) 23 MG/DL CREATININE (test code = 2214) 0.67 MG/DL eGFR AMER. (test code 112 ML/MIN/1.73 = 00776) eGFR NON- AMER. (test 97 ML/MIN/1.73 code = 52303) CALC BUN/CREAT (test code = 34 RATIO [...] code = 2219) 25 U/L COMPREHENSIVE METABOLIC [id number] 00:00:00 Test Item Value Reference Range Interpretation Comments GLUCOSE (test code = 2217) 206 MG/DL BUN (test code = 2208) 23 MG/DL CREATININE (test code = 2214) 0.67 MG/DL eGFR AMER. (test code 112 ML/MIN/1.73 = 47922) eGFR NON- AMER. (test 97 ML/MIN/1.73 code = 17133) CALC BUN/CREAT (test code = 34 RATIO [...] ALT (test code = 2219) 25 U/L [id number] 00:00:00 Test Item Value Reference Range Interpretation Comments TSH, THIRD GENERATION (test code 2.490 UIU/ML = 2821) [id number] 00:00:00 Test Item Value Reference Range Interpretation Comments TSH, THIRD GENERATION (test code 2.490 UIU/ML = 2821) [id number] 00:00:00 Test Item Value Reference Range Interpretation Comments TSH, THIRD GENERATION (test code 2.490 UIU/ML = 2821) HEMOGLOBIN [id number] 00:00:00 Test Item Value Reference Range Interpretation Comments HEMOGLOBIN A1c (test code = 54051) 6.4 % HEMOGLOBIN [id number] 00:00:00 Test Item Value Reference Range Interpretation Comments HEMOGLOBIN A1c (test code = 15831) 6.4 % HEMOGLOBIN [id number] 00:00:00 Test Item Value Reference Range Interpretation Comments HEMOGLOBIN A1c (test code = 53598) 6.4 % COMPREHENSIVE METABOLIC [id number] 00:00:00 Test Item Value Reference Range Interpretation Comments GLUCOSE (test code = 2217) 206 MG/DL BUN (test code = 2208) 23 MG/DL CREATININE (test code = 2214) 0.67 MG/DL eGFR AMER. (test code 112 ML/MIN/1.73 = 17793) eGFR NON- AMER. (test 97 ML/MIN/1.73 code = 27518) CALC BUN/CREAT (test code = 34 RATIO [...] code = 2219) 25 U/L COMPREHENSIVE METABOLIC [id number] 00:00:00 Test Item Value Reference Range Interpretation Comments GLUCOSE (test code = 2217) 206 MG/DL BUN (test code = 2208) 23 MG/DL CREATININE (test code = 2214) 0.67 MG/DL eGFR AMER. (test code 112 ML/MIN/1.73 = 15826) eGFR NON- AMER. (test 97 ML/MIN/1.73 code = 41748) CALC BUN/CREAT (test code = 34 RATIO [...] ALT (test code = 2219) 25 U/L [id number] 00:00:00 Test Item Value Reference Range Interpretation Comments TSH, THIRD GENERATION (test code 2.490 UIU/ML = 2821) [id number] 00:00:00 Test Item Value Reference Range Interpretation Comments TSH, THIRD GENERATION (test code 2.490 UIU/ML = 2821) HEMOGLOBIN [id number] 00:00:00 Test Item Value Reference Range Interpretation Comments HEMOGLOBIN A1c (test code = 06292) 6.4 % HEMOGLOBIN [id number] 00:00:00 Test Item Value Reference Range Interpretation Comments HEMOGLOBIN A1c (test code = 34417) 6.4 % COMPREHENSIVE METABOLIC [id number] 00:00:00 Test Item Value Reference Range Interpretation Comments GLUCOSE (test code = 2217) 206 MG/DL BUN (test code = 2208) 23 MG/DL CREATININE (test code = 2214) 0.67 MG/DL eGFR AMER. (test code 112 ML/MIN/1.73 = 12662) eGFR NON- AMER. (test 97 ML/MIN/1.73 code = 14303) CALC BUN/CREAT (test code = 34 RATIO [...] ALT (test code = 2219) 25 U/L [id number] 00:00:00 Test Item Value Reference Range Interpretation Comments TSH, THIRD GENERATION (test code 2.490 UIU/ML = 2821) [id number] 00:00:00 Test Item Value Reference Range Interpretation Comments TSH, THIRD GENERATION (test code 2.490 UIU/ML = 2821) [id number] 00:00:00 Test Item Value Reference Range Interpretation Comments TSH, THIRD GENERATION (test code 2.490 UIU/ML = 2821) HEMOGLOBIN [id number] 00:00:00 Test Item Value Reference Range Interpretation Comments HEMOGLOBIN A1c (test code = 13545) 6.4 % HEMOGLOBIN [id number] 00:00:00 Test Item Value Reference Range Interpretation Comments HEMOGLOBIN A1c (test code = 94622) 6.4 % HEMOGLOBIN [id number] 00:00:00 Test Item Value Reference Range Interpretation Comments HEMOGLOBIN A1c (test code = 35113) 6.4 % COMPREHENSIVE METABOLIC [id number] 00:00:00 Test Item Value Reference Range Interpretation Comments GLUCOSE (test code = 2217) 206 MG/DL BUN (test code = 2208) 23 MG/DL CREATININE (test code = 2214) 0.67 MG/DL eGFR AMER. (test code 112 ML/MIN/1.73 = 01750) eGFR NON- AMER. (test 97 ML/MIN/1.73 code = 13722) CALC BUN/CREAT (test code = 34 RATIO [...] code = 2219) 25 U/L COMPREHENSIVE METABOLIC [id number] 00:00:00 Test Item Value Reference Range Interpretation Comments GLUCOSE (test code = 2217) 206 MG/DL BUN (test code = 2208) 23 MG/DL CREATININE (test code = 2214) 0.67 MG/DL eGFR AMER. (test code 112 ML/MIN/1.73 = 73596) eGFR NON- AMER. (test 97 ML/MIN/1.73 code = 26074) CALC BUN/CREAT (test code = 34 RATIO [...] = 2219) 25 U/L VAGINAL PATHOGENS DNA [id number] 00:00:00 Test Item Value Reference Range Interpretation Comments MARK SPECIES (test code = ) NEGATIVE G. VAGINALIS (test code = ) NEGATIVE T. VAGINALIS (test code = ) NEGATIVE VAGINAL PATHOGENS DNA [id number] 00:00:00 Test Item Value Reference Range Interpretation Comments MARK SPECIES (test code = ) NEGATIVE G. VAGINALIS (test code = 94151) NEGATIVE T. VAGINALIS (test code = 26796) NEGATIVE VAGINAL PATHOGENS DNA [id number] 00:00:00 Test Item Value Reference Range Interpretation Comments MARK SPECIES (test code = 57729) NEGATIVE G. VAGINALIS (test code = 69729) NEGATIVE T. VAGINALIS (test code = 59128) NEGATIVE VAGINAL PATHOGENS DNA [id number] 00:00:00 Test Item Value Reference Range Interpretation Comments MARK SPECIES (test code = 37272) NEGATIVE G. VAGINALIS (test code = 84382) NEGATIVE T. VAGINALIS (test code = 26067) NEGATIVE VAGINAL PATHOGENS DNA [id number] 00:00:00 Test Item Value Reference Range Interpretation Comments MARK SPECIES (test code = 49686) NEGATIVE G. VAGINALIS (test code = 00545) NEGATIVE T. VAGINALIS (test code = 72690) NEGATIVE VAGINAL PATHOGENS DNA [id number] 00:00:00 Test Item Value Reference Range Interpretation Comments MARK SPECIES (test code = 87924) NEGATIVE G. VAGINALIS (test code = 99943) NEGATIVE T. VAGINALIS (test code = 81665) NEGATIVE VAGINAL PATHOGENS DNA [id number] 00:00:00 Test Item Value Reference Range Interpretation Comments MARK SPECIES (test code = 20956) NEGATIVE G. VAGINALIS (test code = 36087) NEGATIVE T. VAGINALIS (test code = 28763) NEGATIVE HEMOGLOBIN A1c [ADDED]2018-12-01 00:00:00 Test Item Value Reference Range Interpretation Comments HEMOGLOBIN A1c (test code = 30754) 6.7 % HEMOGLOBIN A1c [ADDED]2018-12-01 00:00:00 Test Item Value Reference Range Interpretation Comments HEMOGLOBIN A1c (test code = 27413) 6.7 % HEMOGLOBIN A1c [ADDED]2018-12-01 00:00:00 Test Item Value Reference Range Interpretation Comments HEMOGLOBIN A1c (test code = 90532) 6.7 % COMPREHENSIVE METABOLIC PANEL [ADDED]2018-12-01 00:00:00 Test Item Value Reference Range Interpretation Comments GLUCOSE (test code = 2217) 136 MG/DL BUN (test code = 2208) 15 MG/DL CREATININE (test code = 2214) 0.64 MG/DL eGFR AMER. (test code 115 ML/MIN/1.73 = 76850) eGFR NON- AMER. (test 99 ML/MIN/1.73 code = 13006) CALC BUN/CREAT (test code = 23 RATIO [...] eGFR AMER. (test code 115 ML/MIN/1.73 = 42844) eGFR NON- AMER. (test 99 ML/MIN/1.73 code = 98968) CALC BUN/CREAT (test code = 23 RATIO [...] Comments HEMOGLOBIN A1c (test code = 85994) 6.7 % HEMOGLOBIN A1c [ADDED]2018-12-01 00:00:00 Test Item Value Reference Range Interpretation Comments HEMOGLOBIN A1c (test code = 43956) 6.7 % HEMOGLOBIN A1c [ADDED]2018-12-01 00:00:00 Test Item Value Reference Range Interpretation Comments HEMOGLOBIN A1c (test code = 17609) 6.7 % COMPREHENSIVE METABOLIC PANEL [ADDED]2018-12-01 00:00:00 Test Item Value Reference Range Interpretation Comments GLUCOSE (test code = 2217) 136 MG/DL BUN (test code = 2208) 15 MG/DL CREATININE (test code = 2214) 0.64 MG/DL eGFR AMER. (test code 115 ML/MIN/1.73 = 30441) eGFR NON- AMER. (test 99 ML/MIN/1.73 code = 34385) CALC BUN/CREAT (test code = 23 RATIO [...] eGFR AMER. (test code 115 ML/MIN/1.73 = 96460) eGFR NON- AMER. (test 99 ML/MIN/1.73 code = 47998) CALC BUN/CREAT (test code = 23 RATIO [...] Interpretation Comments HEMOGLOBIN A1c (test code = 12304) 6.7 % HEMOGLOBIN A1c [ADDED]2018-12-01 00:00:00 Test Item Value Reference Range Interpretation Comments HEMOGLOBIN A1c (test code = 93413) 6.7 % COMPREHENSIVE METABOLIC PANEL [ADDED]2018-12-01 00:00:00 Test Item Value Reference Range Interpretation Comments GLUCOSE (test code = 2217) 136 MG/DL BUN (test code = 2208) 15 MG/DL CREATININE (test code = 2214) 0.64 MG/DL eGFR AMER. (test code 115 ML/MIN/1.73 = 50841) eGFR NON- AMER. (test 99 ML/MIN/1.73 code = 85915) CALC BUN/CREAT (test code = 23 RATIO [...] Interpretation Comments HEMOGLOBIN A1c (test code = 52581) 6.7 % HEMOGLOBIN A1c [ADDED]2018-12-01 00:00:00 Test Item Value Reference Range Interpretation Comments HEMOGLOBIN A1c (test code = 90138) 6.7 % HEMOGLOBIN A1c [ADDED]2018-12-01 00:00:00 Test Item Value Reference Range Interpretation Comments HEMOGLOBIN A1c (test code = 16399) 6.7 % COMPREHENSIVE METABOLIC PANEL [ADDED]2018-12-01 00:00:00 Test Item Value Reference Range Interpretation Comments GLUCOSE (test code = 2217) 136 MG/DL BUN (test code = 2208) 15 MG/DL CREATININE (test code = 2214) 0.64 MG/DL eGFR AMER. (test code 115 ML/MIN/1.73 = 73777) eGFR NON- AMER. (test 99 ML/MIN/1.73 code = 61637) CALC BUN/CREAT (test code = 23 RATIO [...] eGFR AMER. (test code 115 ML/MIN/1.73 = 71916) eGFR NON- AMER. (test 99 ML/MIN/1.73 code = 51822) CALC BUN/CREAT (test code = 23 RATIO [...] code 1.280 UIU/ML = 2821) CBC W/AUTO [id number] 00:00:00 Test Item Value Reference Range Interpretation [...] code = 1015) 346 K/UL CBC W/AUTO [id number] 00:00:00 Test Item Value Reference Range Interpretation [...] code = 1015) 346 K/UL CBC W/AUTO [id number] 00:00:00 Test Item Value Reference Range Interpretation [...] (test code = 1015) 346 K/UL HEMOGLOBIN [id number] 00:00:00 Test Item Value Reference Range Interpretation Comments HEMOGLOBIN A1c (test code = 62088) 5.9 % HEMOGLOBIN [id number] 00:00:00 Test Item Value Reference Range Interpretation Comments HEMOGLOBIN A1c (test code = 75191) 5.9 % HEMOGLOBIN [id number] 00:00:00 Test Item Value Reference Range Interpretation Comments HEMOGLOBIN A1c (test code = 15661) 5.9 % LIPID [id number] 00:00:00 Test Item Value Reference Range Interpretation Comments CHOLESTEROL (test code = 2210) 318 MG/DL TRIGLYCERIDES (test code = 2232) 263 MG/DL HDL CHOLESTEROL (test code = 2220) 51 MG/DL CALC LDL CHOL (test code = 2237) 214 MG/DL RISK RATIO LDL/HDL (test code = 4.20 RATIO 2238) LIPID [id number] 00:00:00 Test Item Value Reference Range Interpretation Comments CHOLESTEROL (test code = 2210) 318 MG/DL TRIGLYCERIDES (test code = 2232) 263 MG/DL HDL CHOLESTEROL (test code = 2220) 51 MG/DL CALC LDL CHOL (test code = 2237) 214 MG/DL RISK RATIO LDL/HDL (test code = 4.20 RATIO 2238) COMPREHENSIVE METABOLIC [id number] 00:00:00 Test Item Value Reference Range Interpretation Comments GLUCOSE (test code = 2217) 113 MG/DL BUN (test code = 2208) 18 MG/DL CREATININE (test code = 2214) 0.70 MG/DL eGFR AMER. (test code 111 ML/MIN/1.73 = 60723) eGFR NON- AMER. (test 96 ML/MIN/1.73 code = 88199) CALC BUN/CREAT (test code = 26 RATIO [...] code = 2219) 31 U/L COMPREHENSIVE METABOLIC [id number] 00:00:00 Test Item Value Reference Range Interpretation Comments GLUCOSE (test code = 2217) 113 MG/DL BUN (test code = 2208) 18 MG/DL CREATININE (test code = 2214) 0.70 MG/DL eGFR AMER. (test code 111 ML/MIN/1.73 = 19477) eGFR NON- AMER. (test 96 ML/MIN/1.73 code = 21637) CALC BUN/CREAT (test code = 26 RATIO [...] ALT (test code = 2219) 31 U/L [id number] 00:00:00 Test Item Value Reference Range Interpretation Comments TSH, THIRD GENERATION (test code 2.520 UIU/ML = 2821) [id number] 00:00:00 Test Item Value Reference Range Interpretation Comments TSH, THIRD GENERATION (test code 2.520 UIU/ML = 2821) [id number] 00:00:00 Test Item Value Reference Range Interpretation Comments TSH, THIRD GENERATION (test code 2.520 UIU/ML = 2821) CBC W/AUTO [id number] 00:00:00 Test Item Value Reference Range Interpretation [...] code = 1015) 346 K/UL CBC W/AUTO [id number] 00:00:00 Test Item Value Reference Range Interpretation [...] code = 1015) 346 K/UL CBC W/AUTO [id number] 00:00:00 Test Item Value Reference Range Interpretation [...] (test code = 1015) 346 K/UL HEMOGLOBIN [id number] 00:00:00 Test Item Value Reference Range Interpretation Comments HEMOGLOBIN A1c (test code = 34039) 5.9 % HEMOGLOBIN [id number] 00:00:00 Test Item Value Reference Range Interpretation Comments HEMOGLOBIN A1c (test code = 61636) 5.9 % HEMOGLOBIN [id number] 00:00:00 Test Item Value Reference Range Interpretation Comments HEMOGLOBIN A1c (test code = 27216) 5.9 % LIPID [id number] 00:00:00 Test Item Value Reference Range Interpretation Comments CHOLESTEROL (test code = 2210) 318 MG/DL TRIGLYCERIDES (test code = 2232) 263 MG/DL HDL CHOLESTEROL (test code = 2220) 51 MG/DL CALC LDL CHOL (test code = 2237) 214 MG/DL RISK RATIO LDL/HDL (test code = 4.20 RATIO 2238) LIPID [id number] 00:00:00 Test Item Value Reference Range Interpretation Comments CHOLESTEROL (test code = 2210) 318 MG/DL TRIGLYCERIDES (test code = 2232) 263 MG/DL HDL CHOLESTEROL (test code = 2220) 51 MG/DL CALC LDL CHOL (test code = 2237) 214 MG/DL RISK RATIO LDL/HDL (test code = 4.20 RATIO 2238) COMPREHENSIVE METABOLIC [id number] 00:00:00 Test Item Value Reference Range Interpretation Comments GLUCOSE (test code = 2217) 113 MG/DL BUN (test code = 2208) 18 MG/DL CREATININE (test code = 2214) 0.70 MG/DL eGFR AMER. (test code 111 ML/MIN/1.73 = 39828) eGFR NON- AMER. (test 96 ML/MIN/1.73 code = 09487) CALC BUN/CREAT (test code = 26 RATIO [...] code = 2219) 31 U/L COMPREHENSIVE METABOLIC [id number] 00:00:00 Test Item Value Reference Range Interpretation Comments GLUCOSE (test code = 2217) 113 MG/DL BUN (test code = 2208) 18 MG/DL CREATININE (test code = 2214) 0.70 MG/DL eGFR AMER. (test code 111 ML/MIN/1.73 = 78314) eGFR NON- AMER. (test 96 ML/MIN/1.73 code = 86664) CALC BUN/CREAT (test code = 26 RATIO [...] ALT (test code = 2219) 31 U/L [id number] 00:00:00 Test Item Value Reference Range Interpretation Comments TSH, THIRD GENERATION (test code 2.520 UIU/ML = 2821) [id number] 00:00:00 Test Item Value Reference Range Interpretation Comments TSH, THIRD GENERATION (test code 2.520 UIU/ML = 2821) [id number] 00:00:00 Test Item Value Reference Range Interpretation Comments TSH, THIRD GENERATION (test code 2.520 UIU/ML = 2821) CBC W/AUTO [id number] 00:00:00 Test Item Value Reference Range Interpretation [...] code = 1015) 346 K/UL CBC W/AUTO [id number] 00:00:00 Test Item Value Reference Range Interpretation [...] (test code = 1015) 346 K/UL HEMOGLOBIN [id number] 00:00:00 Test Item Value Reference Range Interpretation Comments HEMOGLOBIN A1c (test code = 05644) 5.9 % HEMOGLOBIN [id number] 00:00:00 Test Item Value Reference Range Interpretation Comments HEMOGLOBIN A1c (test code = 48580) 5.9 % LIPID [id number] 00:00:00 Test Item Value Reference Range Interpretation Comments CHOLESTEROL (test code = 2210) 318 MG/DL TRIGLYCERIDES (test code = 2232) 263 MG/DL HDL CHOLESTEROL (test code = 2220) 51 MG/DL CALC LDL CHOL (test code = 2237) 214 MG/DL RISK RATIO LDL/HDL (test code = 4.20 RATIO 2238) COMPREHENSIVE METABOLIC [id number] 00:00:00 Test Item Value Reference Range Interpretation Comments GLUCOSE (test code = 2217) 113 MG/DL BUN (test code = 2208) 18 MG/DL CREATININE (test code = 2214) 0.70 MG/DL eGFR AMER. (test code 111 ML/MIN/1.73 = 87199) eGFR NON- AMER. (test 96 ML/MIN/1.73 code = 68760) CALC BUN/CREAT (test code = 26 RATIO [...] ALT (test code = 2219) 31 U/L [id number] 00:00:00 Test Item Value Reference Range Interpretation Comments TSH, THIRD GENERATION (test code 2.520 UIU/ML = 2821) [id number] 00:00:00 Test Item Value Reference Range Interpretation Comments TSH, THIRD GENERATION (test code 2.520 UIU/ML = 2821) CBC W/AUTO [id number] 00:00:00 Test Item Value Reference Range Interpretation [...] code = 1015) 346 K/UL CBC W/AUTO [id number] 00:00:00 Test Item Value Reference Range Interpretation [...] code = 1015) 346 K/UL CBC W/AUTO [id number] 00:00:00 Test Item Value Reference Range Interpretation [...] (test code = 1015) 346 K/UL HEMOGLOBIN [id number] 00:00:00 Test Item Value Reference Range Interpretation Comments HEMOGLOBIN A1c (test code = 77039) 5.9 % HEMOGLOBIN [id number] 00:00:00 Test Item Value Reference Range Interpretation Comments HEMOGLOBIN A1c (test code = 86771) 5.9 % HEMOGLOBIN [id number] 00:00:00 Test Item Value Reference Range Interpretation Comments HEMOGLOBIN A1c (test code = 64135) 5.9 % LIPID [id number] 00:00:00 Test Item Value Reference Range Interpretation Comments CHOLESTEROL (test code = 2210) 318 MG/DL TRIGLYCERIDES (test code = 2232) 263 MG/DL HDL CHOLESTEROL (test code = 2220) 51 MG/DL CALC LDL CHOL (test code = 2237) 214 MG/DL RISK RATIO LDL/HDL (test code = 4.20 RATIO 2238) LIPID [id number] 00:00:00 Test Item Value Reference Range Interpretation Comments CHOLESTEROL (test code = 2210) 318 MG/DL TRIGLYCERIDES (test code = 2232) 263 MG/DL HDL CHOLESTEROL (test code = 2220) 51 MG/DL CALC LDL CHOL (test code = 2237) 214 MG/DL RISK RATIO LDL/HDL (test code = 4.20 RATIO 2238) COMPREHENSIVE METABOLIC [id number] 00:00:00 Test Item Value Reference Range Interpretation Comments GLUCOSE (test code = 2217) 113 MG/DL BUN (test code = 2208) 18 MG/DL CREATININE (test code = 2214) 0.70 MG/DL eGFR AMER. (test code 111 ML/MIN/1.73 = 04854) eGFR NON- AMER. (test 96 ML/MIN/1.73 code = 03540) CALC BUN/CREAT (test code = 26 RATIO [...] code = 2219) 31 U/L COMPREHENSIVE METABOLIC [id number] 00:00:00 Test Item Value Reference Range Interpretation Comments GLUCOSE (test code = 2217) 113 MG/DL BUN (test code = 2208) 18 MG/DL CREATININE (test code = 2214) 0.70 MG/DL eGFR AMER. (test code 111 ML/MIN/1.73 = 92321) eGFR NON- AMER. (test 96 ML/MIN/1.73 code = 31881) CALC BUN/CREAT (test code = 26 RATIO [...] ALT (test code = 2219) 31 U/L [id number] 00:00:00 Test Item Value Reference Range Interpretation Comments TSH, THIRD GENERATION (test code 2.520 UIU/ML = 2821) [id number] 00:00:00 Test Item Value Reference Range Interpretation Comments TSH, THIRD GENERATION (test code 2.520 UIU/ML = 2821) [id number] 00:00:00 Test Item Value Reference Range Interpretation Comments TSH, THIRD GENERATION (test code 2.520 UIU/ML = 2821) CULTURE, [id number] 00:00:00 Test Item Value Reference Range Interpretation Comments CULTURE, URINE (test SPECIMEN NUMBER: code = 91898) [id number] CULTURE, [id number] 00:00:00 Test Item Value Reference Range Interpretation Comments CULTURE, URINE (test SPECIMEN NUMBER: code = 15422) [id number] CULTURE, [id number] 00:00:00 Test Item Value Reference Range Interpretation Comments CULTURE, URINE (test SPECIMEN NUMBER: code = 23538) [id number] CULTURE, [id number] 00:00:00 Test Item Value Reference Range Interpretation Comments CULTURE, URINE (test SPECIMEN NUMBER: code = 98293) [id number] CULTURE, [id number] 00:00:00 Test Item Value Reference Range Interpretation Comments CULTURE, URINE (test SPECIMEN NUMBER: code = 43562) [id number] CULTURE, [id number] 00:00:00 Test Item Value Reference Range Interpretation Comments CULTURE, URINE (test SPECIMEN NUMBER: code = 21161) [id number] CULTURE, [id number] 00:00:00 Test Item Value Reference Range Interpretation Comments CULTURE, URINE (test SPECIMEN NUMBER: code = 43094) [id number] CULTURE, [id number] 00:00:00 Test Item Value Reference Range Interpretation Comments CULTURE, URINE (test SPECIMEN NUMBER: code = 96568) [id number] CULTURE, [id number] 00:00:00 Test Item Value Reference Range Interpretation Comments CULTURE, URINE (test SPECIMEN NUMBER: code = 86637) [id number] CULTURE, [id number] 00:00:00 Test Item Value Reference Range Interpretation Comments CULTURE, URINE (test SPECIMEN NUMBER: code = 88969) [id number] CULTURE, [id number] 00:00:00 Test Item Value Reference Range Interpretation Comments CULTURE, URINE (test SPECIMEN NUMBER: code = 95389) [id number] CULTURE, [id number] 00:00:00 Test Item Value Reference Range Interpretation Comments CULTURE, URINE (test SPECIMEN NUMBER: code = 85279) [id number] CULTURE, [id number] 00:00:00 Test Item Value Reference Range Interpretation Comments CULTURE, URINE (test SPECIMEN NUMBER: code = 29379) [id number] CULTURE, [id number] 00:00:00 Test Item Value Reference Range Interpretation Comments CULTURE, URINE (test SPECIMEN NUMBER: code = 39859) [id number] BASIC METABOLIC [id number] 00:00:00 Test Item Value Reference Range Interpretation Comments GLUCOSE (test code = 2217) 135 MG/DL BUN (test code = 2208) 25 MG/DL CREATININE (test code = 2214) 0.76 MG/DL eGFR AMER. (test code 101 ML/MIN/1.73 = 43716) eGFR NON- AMER. (test 87 ML/MIN/1.73 code = 23170) SODIUM (test code = 2231) 139 MEQ/L POTASSIUM (test code = 2228) 4.7 MEQ/L CHLORIDE (test code = 2215) 99 MEQ/L CARBON DIOXIDE (test code = 26 MEQ/L 2206) CALCIUM (test code = 2209) 9.4 MG/DL BASIC METABOLIC [id number] 00:00:00 Test Item Value Reference Range Interpretation Comments GLUCOSE (test code = 2217) 135 MG/DL BUN (test code = 2208) 25 MG/DL CREATININE (test code = 2214) 0.76 MG/DL eGFR AMER. (test code 101 ML/MIN/1.73 = 34550) eGFR NON- AMER. (test 87 ML/MIN/1.73 code = 31491) SODIUM (test code = 2231) 139 MEQ/L POTASSIUM (test code = 2228) 4.7 MEQ/L CHLORIDE (test code = 2215) 99 MEQ/L CARBON DIOXIDE (test code = 26 MEQ/L 2206) CALCIUM (test code = 2209) 9.4 MG/DL LIPID [id number] 00:00:00 Test Item Value Reference Range Interpretation Comments CHOLESTEROL (test code = 2210) 262 MG/DL TRIGLYCERIDES (test code = 2232) 300 MG/DL HDL CHOLESTEROL (test code = 2220) 36 MG/DL CALC LDL CHOL (test code = 2237) 166 MG/DL RISK RATIO LDL/HDL (test code = 4.61 RATIO 2238) LIPID [id number] 00:00:00 Test Item Value Reference Range Interpretation Comments CHOLESTEROL (test code = 2210) 262 MG/DL TRIGLYCERIDES (test code = 2232) 300 MG/DL HDL CHOLESTEROL (test code = 2220) 36 MG/DL CALC LDL CHOL (test code = 2237) 166 MG/DL RISK RATIO LDL/HDL (test code = 4.61 RATIO 2238) HEMOGLOBIN [id number] 00:00:00 Test Item Value Reference Range Interpretation Comments HEMOGLOBIN A1c (test code = 96250) 6.2 % HEMOGLOBIN [id number] 00:00:00 Test Item Value Reference Range Interpretation Comments HEMOGLOBIN A1c (test code = 24390) 6.2 % HEMOGLOBIN [id number] 00:00:00 Test Item Value Reference Range Interpretation Comments HEMOGLOBIN A1c (test code = 31749) 6.2 % [id number] 00:00:00 Test Item Value Reference Range Interpretation Comments TSH, THIRD GENERATION (test code 0.988 UIU/ML = 2821) [id number] 00:00:00 Test Item Value Reference Range Interpretation Comments TSH, THIRD GENERATION (test code 0.988 UIU/ML = 2821) [id number] 00:00:00 Test Item Value Reference Range Interpretation Comments TSH, THIRD GENERATION (test code 0.988 UIU/ML = 2821) BASIC METABOLIC [id number] 00:00:00 Test Item Value Reference Range Interpretation Comments GLUCOSE (test code = 2217) 135 MG/DL BUN (test code = 2208) 25 MG/DL CREATININE (test code = 2214) 0.76 MG/DL eGFR AMER. (test code 101 ML/MIN/1.73 = 50320) eGFR NON- AMER. (test 87 ML/MIN/1.73 code = 33797) SODIUM (test code = 2231) 139 MEQ/L POTASSIUM (test code = 2228) 4.7 MEQ/L CHLORIDE (test code = 2215) 99 MEQ/L CARBON DIOXIDE (test code = 26 MEQ/L 2206) CALCIUM (test code = 2209) 9.4 MG/DL BASIC METABOLIC [id number] 00:00:00 Test Item Value Reference Range Interpretation Comments GLUCOSE (test code = 2217) 135 MG/DL BUN (test code = 2208) 25 MG/DL CREATININE (test code = 2214) 0.76 MG/DL eGFR AMER. (test code 101 ML/MIN/1.73 = 51652) eGFR NON- AMER. (test 87 ML/MIN/1.73 code = 60947) SODIUM (test code = 2231) 139 MEQ/L POTASSIUM (test code = 2228) 4.7 MEQ/L CHLORIDE (test code = 2215) 99 MEQ/L CARBON DIOXIDE (test code = 26 MEQ/L 2206) CALCIUM (test code = 2209) 9.4 MG/DL LIPID [id number] 00:00:00 Test Item Value Reference Range Interpretation Comments CHOLESTEROL (test code = 2210) 262 MG/DL TRIGLYCERIDES (test code = 2232) 300 MG/DL HDL CHOLESTEROL (test code = 2220) 36 MG/DL CALC LDL CHOL (test code = 2237) 166 MG/DL RISK RATIO LDL/HDL (test code = 4.61 RATIO 2238) LIPID [id number] 00:00:00 Test Item Value Reference Range Interpretation Comments CHOLESTEROL (test code = 2210) 262 MG/DL TRIGLYCERIDES (test code = 2232) 300 MG/DL HDL CHOLESTEROL (test code = 2220) 36 MG/DL CALC LDL CHOL (test code = 2237) 166 MG/DL RISK RATIO LDL/HDL (test code = 4.61 RATIO 2238) HEMOGLOBIN [id number] 00:00:00 Test Item Value Reference Range Interpretation Comments HEMOGLOBIN A1c (test code = 33861) 6.2 % HEMOGLOBIN [id number] 00:00:00 Test Item Value Reference Range Interpretation Comments HEMOGLOBIN A1c (test code = 25574) 6.2 % HEMOGLOBIN [id number] 00:00:00 Test Item Value Reference Range Interpretation Comments HEMOGLOBIN A1c (test code = 24713) 6.2 % [id number] 00:00:00 Test Item Value Reference Range Interpretation Comments TSH, THIRD GENERATION (test code 0.988 UIU/ML = 2821) [id number] 00:00:00 Test Item Value Reference Range Interpretation Comments TSH, THIRD GENERATION (test code 0.988 UIU/ML = 2821) [id number] 00:00:00 Test Item Value Reference Range Interpretation Comments TSH, THIRD GENERATION (test code 0.988 UIU/ML = 2821) BASIC METABOLIC [id number] 00:00:00 Test Item Value Reference Range Interpretation Comments GLUCOSE (test code = 2217) 135 MG/DL BUN (test code = 2208) 25 MG/DL CREATININE (test code = 2214) 0.76 MG/DL eGFR AMER. (test code 101 ML/MIN/1.73 = 73480) eGFR NON- AMER. (test 87 ML/MIN/1.73 code = 86795) SODIUM (test code = 2231) 139 MEQ/L POTASSIUM (test code = 2228) 4.7 MEQ/L CHLORIDE (test code = 2215) 99 MEQ/L CARBON DIOXIDE (test code = 26 MEQ/L 2205) CALCIUM (test code = 2209) 9.4 MG/DL LIPID [id number] 00:00:00 Test Item Value Reference Range Interpretation Comments CHOLESTEROL (test code = 2210) 262 MG/DL TRIGLYCERIDES (test code = 2232) 300 MG/DL HDL CHOLESTEROL (test code = 2220) 36 MG/DL CALC LDL CHOL (test code = 2237) 166 MG/DL RISK RATIO LDL/HDL (test code = 4.61 RATIO 2238) HEMOGLOBIN [id number] 00:00:00 Test Item Value Reference Range Interpretation Comments HEMOGLOBIN A1c (test code = 66278) 6.2 % HEMOGLOBIN [id number] 00:00:00 Test Item Value Reference Range Interpretation Comments HEMOGLOBIN A1c (test code = 22103) 6.2 % [id number] 00:00:00 Test Item Value Reference Range Interpretation Comments TSH, THIRD GENERATION (test code 0.988 UIU/ML = 2821) [id number] 00:00:00 Test Item Value Reference Range Interpretation Comments TSH, THIRD GENERATION (test code 0.988 UIU/ML = 2821) BASIC METABOLIC [id number] 00:00:00 Test Item Value Reference Range Interpretation Comments GLUCOSE (test code = 2217) 135 MG/DL BUN (test code = 2208) 25 MG/DL CREATININE (test code = 2214) 0.76 MG/DL eGFR AMER. (test code 101 ML/MIN/1.73 = 73086) eGFR NON- AMER. (test 87 ML/MIN/1.73 code = 74164) SODIUM (test code = 2231) 139 MEQ/L POTASSIUM (test code = 2228) 4.7 MEQ/L CHLORIDE (test code = 2215) 99 MEQ/L CARBON DIOXIDE (test code = 26 MEQ/L 2206) CALCIUM (test code = 2209) 9.4 MG/DL BASIC METABOLIC [id number] 00:00:00 Test Item Value Reference Range Interpretation Comments GLUCOSE (test code = 2217) 135 MG/DL BUN (test code = 2208) 25 MG/DL CREATININE (test code = 2214) 0.76 MG/DL eGFR AMER. (test code 101 ML/MIN/1.73 = 53498) eGFR NON- AMER. (test 87 ML/MIN/1.73 code = 13574) SODIUM (test code = 2231) 139 MEQ/L POTASSIUM (test code = 2228) 4.7 MEQ/L CHLORIDE (test code = 2215) 99 MEQ/L CARBON DIOXIDE (test code = 26 MEQ/L 2206) CALCIUM (test code = 2209) 9.4 MG/DL LIPID [id number] 00:00:00 Test Item Value Reference Range Interpretation Comments CHOLESTEROL (test code = 2210) 262 MG/DL TRIGLYCERIDES (test code = 2232) 300 MG/DL HDL CHOLESTEROL (test code = 2220) 36 MG/DL CALC LDL CHOL (test code = 2237) 166 MG/DL RISK RATIO LDL/HDL (test code = 4.61 RATIO 2238) LIPID [id number] 00:00:00 Test Item Value Reference Range Interpretation Comments CHOLESTEROL (test code = 2210) 262 MG/DL TRIGLYCERIDES (test code = 2232) 300 MG/DL HDL CHOLESTEROL (test code = 2220) 36 MG/DL CALC LDL CHOL (test code = 2237) 166 MG/DL RISK RATIO LDL/HDL (test code = 4.61 RATIO 2238) HEMOGLOBIN [id number] 00:00:00 Test Item Value Reference Range Interpretation Comments HEMOGLOBIN A1c (test code = 05773) 6.2 % HEMOGLOBIN [id number] 00:00:00 Test Item Value Reference Range Interpretation Comments HEMOGLOBIN A1c (test code = 12436) 6.2 % HEMOGLOBIN [id number] 00:00:00 Test Item Value Reference Range Interpretation Comments HEMOGLOBIN A1c (test code = 20903) 6.2 % [id number] 00:00:00 Test Item Value Reference Range Interpretation Comments TSH, THIRD GENERATION (test code 0.988 UIU/ML = 2821) [id number] 00:00:00 Test Item Value Reference Range Interpretation Comments TSH, THIRD GENERATION (test code 0.988 UIU/ML = 2821) [id number] 00:00:00 Test Item Value Reference Range Interpretation Comments TSH, THIRD GENERATION (test code 0.988 UIU/ML = 2821) COMPREHENSIVE METABOLIC [id number] 00:00:00 Test Item Value Reference Range Interpretation Comments GLUCOSE (test code = 2217) 109 MG/DL BUN (test code = 2208) 25 MG/DL CREATININE (test code = 2214) 0.78 MG/DL eGFR AMER. (test code 98 ML/MIN/1.73 = 71755) eGFR NON- AMER. (test 84 ML/MIN/1.73 code = 25384) CALC BUN/CREAT (test code = 32 RATIO [...] code = 2219) 25 U/L COMPREHENSIVE METABOLIC [id number] 00:00:00 Test Item Value Reference Range Interpretation Comments GLUCOSE (test code = 2217) 109 MG/DL BUN (test code = 2208) 25 MG/DL CREATININE (test code = 2214) 0.78 MG/DL eGFR AMER. (test code 98 ML/MIN/1.73 = 50658) eGFR NON- AMER. (test 84 ML/MIN/1.73 code = 44378) CALC BUN/CREAT (test code = 32 RATIO [...] (test code = 2219) 25 U/L LIPID [id number] 00:00:00 Test Item Value Reference Range Interpretation Comments CHOLESTEROL (test code = 2210) 295 MG/DL TRIGLYCERIDES (test code = 2232) 218 MG/DL HDL CHOLESTEROL (test code = 2220) 46 MG/DL CALC LDL CHOL (test code = 2237) 205 MG/DL RISK RATIO LDL/HDL (test code = 4.47 RATIO 2238) LIPID [id number] 00:00:00 Test Item Value Reference Range Interpretation Comments CHOLESTEROL (test code = 2210) 295 MG/DL TRIGLYCERIDES (test code = 2232) 218 MG/DL HDL CHOLESTEROL (test code = 2220) 46 MG/DL CALC LDL CHOL (test code = 2237) 205 MG/DL RISK RATIO LDL/HDL (test code = 4.47 RATIO 2238) HEMOGLOBIN [id number] 00:00:00 Test Item Value Reference Range Interpretation Comments HEMOGLOBIN A1c (test code = 67438) 7.0 % HEMOGLOBIN [id number] 00:00:00 Test Item Value Reference Range Interpretation Comments HEMOGLOBIN A1c (test code = 98874) 7.0 % HEMOGLOBIN [id number] 00:00:00 Test Item Value Reference Range Interpretation Comments HEMOGLOBIN A1c (test code = 12502) 7.0 % [id number] 00:00:00 Test Item Value Reference Range Interpretation Comments TSH, THIRD GENERATION (test code 0.565 UIU/ML = 2821) [id number] 00:00:00 Test Item Value Reference Range Interpretation Comments TSH, THIRD GENERATION (test code 0.565 UIU/ML = 2821) [id number] 00:00:00 Test Item Value Reference Range Interpretation Comments TSH, THIRD GENERATION (test code 0.565 UIU/ML = 2821) COMPREHENSIVE METABOLIC [id number] 00:00:00 Test Item Value Reference Range Interpretation Comments GLUCOSE (test code = 2217) 109 MG/DL BUN (test code = 2208) 25 MG/DL CREATININE (test code = 2214) 0.78 MG/DL eGFR AMER. (test code 98 ML/MIN/1.73 = 88844) eGFR NON- AMER. (test 84 ML/MIN/1.73 code = 76254) CALC BUN/CREAT (test code = 32 RATIO [...] = 220) AST (test code = 2218) 18 U/L ALT (test code = 2219) 25 U/L COMPREHENSIVE METABOLIC [id number] 00:00:00 Test Item Value Reference Range Interpretation Comments GLUCOSE (test code = 2217) 109 MG/DL BUN (test code = 2208) 25 MG/DL CREATININE (test code = 2214) 0.78 MG/DL eGFR AMER. (test code 98 ML/MIN/1.73 = 43776) eGFR NON- AMER. (test 84 ML/MIN/1.73 code = 20254) CALC BUN/CREAT (test code = 32 RATIO [...] (test code = 2219) 25 U/L LIPID [id number] 00:00:00 Test Item Value Reference Range Interpretation Comments CHOLESTEROL (test code = 2210) 295 MG/DL TRIGLYCERIDES (test code = 2232) 218 MG/DL HDL CHOLESTEROL (test code = 2220) 46 MG/DL CALC LDL CHOL (test code = 2237) 205 MG/DL RISK RATIO LDL/HDL (test code = 4.47 RATIO 2238) LIPID [id number] 00:00:00 Test Item Value Reference Range Interpretation Comments CHOLESTEROL (test code = 2210) 295 MG/DL TRIGLYCERIDES (test code = 2232) 218 MG/DL HDL CHOLESTEROL (test code = 2220) 46 MG/DL CALC LDL CHOL (test code = 2237) 205 MG/DL RISK RATIO LDL/HDL (test code = 4.47 RATIO 2238) HEMOGLOBIN [id number] 00:00:00 Test Item Value Reference Range Interpretation Comments HEMOGLOBIN A1c (test code = 73955) 7.0 % HEMOGLOBIN [id number] 00:00:00 Test Item Value Reference Range Interpretation Comments HEMOGLOBIN A1c (test code = 12106) 7.0 % HEMOGLOBIN [id number] 00:00:00 Test Item Value Reference Range Interpretation Comments HEMOGLOBIN A1c (test code = 63564) 7.0 % [id number] 00:00:00 Test Item Value Reference Range Interpretation Comments TSH, THIRD GENERATION (test code 0.565 UIU/ML = 2821) [id number] 00:00:00 Test Item Value Reference Range Interpretation Comments TSH, THIRD GENERATION (test code 0.565 UIU/ML = 2821) [id number] 00:00:00 Test Item Value Reference Range Interpretation Comments TSH, THIRD GENERATION (test code 0.565 UIU/ML = 2821) COMPREHENSIVE METABOLIC [id number] 00:00:00 Test Item Value Reference Range Interpretation Comments GLUCOSE (test code = 2217) 109 MG/DL BUN (test code = 2208) 25 MG/DL CREATININE (test code = 2214) 0.78 MG/DL eGFR AMER. (test code 98 ML/MIN/1.73 = 48888) eGFR NON- AMER. (test 84 ML/MIN/1.73 code = 63163) CALC BUN/CREAT (test code = 32 RATIO [...] (test code = 2219) 25 U/L LIPID [id number] 00:00:00 Test Item Value Reference Range Interpretation Comments CHOLESTEROL (test code = 2210) 295 MG/DL TRIGLYCERIDES (test code = 2232) 218 MG/DL HDL CHOLESTEROL (test code = 2220) 46 MG/DL CALC LDL CHOL (test code = 2237) 205 MG/DL RISK RATIO LDL/HDL (test code = 4.47 RATIO 2238) HEMOGLOBIN [id number] 00:00:00 Test Item Value Reference Range Interpretation Comments HEMOGLOBIN A1c (test code = 57660) 7.0 % HEMOGLOBIN [id number] 00:00:00 Test Item Value Reference Range Interpretation Comments HEMOGLOBIN A1c (test code = 45481) 7.0 % [id number] 00:00:00 Test Item Value Reference Range Interpretation Comments TSH, THIRD GENERATION (test code 0.565 UIU/ML = 2821) [id number] 00:00:00 Test Item Value Reference Range Interpretation Comments TSH, THIRD GENERATION (test code 0.565 UIU/ML = 2821) COMPREHENSIVE METABOLIC [id number] 00:00:00 Test Item Value Reference Range Interpretation Comments GLUCOSE (test code = 2217) 109 MG/DL BUN (test code = 2208) 25 MG/DL CREATININE (test code = 2214) 0.78 MG/DL eGFR AMER. (test code 98 ML/MIN/1.73 = 52593) eGFR NON- AMER. (test 84 ML/MIN/1.73 code = 44207) CALC BUN/CREAT (test code = 32 RATIO [...] code = 2219) 25 U/L COMPREHENSIVE METABOLIC [id number] 00:00:00 Test Item Value Reference Range Interpretation Comments GLUCOSE (test code = 2217) 109 MG/DL BUN (test code = 2208) 25 MG/DL CREATININE (test code = 2214) 0.78 MG/DL eGFR AMER. (test code 98 ML/MIN/1.73 = 71749) eGFR NON- AMER. (test 84 ML/MIN/1.73 code = 51866) CALC BUN/CREAT (test code = 32 RATIO [...] (test code = 2219) 25 U/L LIPID [id number] 00:00:00 Test Item Value Reference Range Interpretation Comments CHOLESTEROL (test code = 2210) 295 MG/DL TRIGLYCERIDES (test code = 2232) 218 MG/DL HDL CHOLESTEROL (test code = 2220) 46 MG/DL CALC LDL CHOL (test code = 2237) 205 MG/DL RISK RATIO LDL/HDL (test code = 4.47 RATIO 2238) LIPID [id number] 00:00:00 Test Item Value Reference Range Interpretation Comments CHOLESTEROL (test code = 2210) 295 MG/DL TRIGLYCERIDES (test code = 2232) 218 MG/DL HDL CHOLESTEROL (test code = 2220) 46 MG/DL CALC LDL CHOL (test code = 2237) 205 MG/DL RISK RATIO LDL/HDL (test code = 4.47 RATIO 2238) HEMOGLOBIN [id number] 00:00:00 Test Item Value Reference Range Interpretation Comments HEMOGLOBIN A1c (test code = 24940) 7.0 % HEMOGLOBIN [id number] 00:00:00 Test Item Value Reference Range Interpretation Comments HEMOGLOBIN A1c (test code = 80341) 7.0 % HEMOGLOBIN [id number] 00:00:00 Test Item Value Reference Range Interpretation Comments HEMOGLOBIN A1c (test code = 28413) 7.0 % [id number] 00:00:00 Test Item Value Reference Range Interpretation Comments TSH, THIRD GENERATION (test code 0.565 UIU/ML = 2821) [id number] 00:00:00 Test Item Value Reference Range Interpretation Comments TSH, THIRD GENERATION (test code 0.565 UIU/ML = 2821) [id number] 00:00:00 Test Item Value Reference Range Interpretation Comments TSH, THIRD GENERATION (test code 0.565 UIU/ML = 2821) [id number] 00:00:00 Test Item Value Reference Range Interpretation Comments TSH, THIRD GENERATION (test code 0.379 UIU/ML = 2821) [id number] 00:00:00 Test Item Value Reference Range Interpretation Comments TSH, THIRD GENERATION (test code 0.379 UIU/ML = 2821) [id number] 00:00:00 Test Item Value Reference Range Interpretation Comments TSH, THIRD GENERATION (test code 0.379 UIU/ML = 2821) [id number] 00:00:00 Test Item Value Reference Range Interpretation Comments TSH, THIRD GENERATION (test code 0.379 UIU/ML = 2821) [id number] 00:00:00 Test Item Value Reference Range Interpretation Comments TSH, THIRD GENERATION (test code 0.379 UIU/ML = 2821) [id number] 00:00:00 Test Item Value Reference Range Interpretation Comments TSH, THIRD GENERATION (test code 0.379 UIU/ML = 2821) [id number] 00:00:00 Test Item Value Reference Range Interpretation Comments TSH, THIRD GENERATION (test code 0.379 UIU/ML = 2821) [id number] 00:00:00 Test Item Value Reference Range Interpretation Comments TSH, THIRD GENERATION (test code 0.379 UIU/ML = 2821) [id number] 00:00:00 Test Item Value Reference Range Interpretation Comments TSH, THIRD GENERATION (test code 0.379 UIU/ML = 2821) [id number] 00:00:00 Test Item Value Reference Range Interpretation Comments TSH, THIRD GENERATION (test code 0.379 UIU/ML = 2821) [id number] 00:00:00 Test Item Value Reference Range Interpretation Comments TSH, THIRD GENERATION (test code 0.379 UIU/ML = 2821) CULTURE, [id number] 00:00:00 Test Item Value Reference Range Interpretation Comments CULTURE, URINE (test SPECIMEN NUMBER: code = 49792) [id number] CULTURE, [id number] 00:00:00 Test Item Value Reference Range Interpretation Comments CULTURE, URINE (test SPECIMEN NUMBER: code = 70057) [id number] CULTURE, [id number] 00:00:00 Test Item Value Reference Range Interpretation Comments CULTURE, URINE (test SPECIMEN NUMBER: code = 95734) [id number] CULTURE, [id number] 00:00:00 Test Item Value Reference Range Interpretation Comments CULTURE, URINE (test SPECIMEN NUMBER: code = 30800) [id number] CULTURE, [id number] 00:00:00 Test Item Value Reference Range Interpretation Comments CULTURE, URINE (test SPECIMEN NUMBER: code = 39599) [id number] CULTURE, [id number] 00:00:00 Test Item Value Reference Range Interpretation Comments CULTURE, URINE (test SPECIMEN NUMBER: code = 21203) [id number] CULTURE, [id number] 00:00:00 Test Item Value Reference Range Interpretation Comments CULTURE, URINE (test SPECIMEN NUMBER: code = 27460) [id number] COMPREHENSIVE METABOLIC [id number] 00:00:00 Test Item Value Reference Range Interpretation Comments GLUCOSE (test code = 2217) 128 MG/DL BUN (test code = 2208) 26 MG/DL CREATININE (test code = 2214) 0.92 MG/DL eGFR AMER. (test code 81 ML/MIN/1.73 = 33961) eGFR NON- AMER. (test 70 ML/MIN/1.73 code = 31267) CALC BUN/CREAT (test code = 28 RATIO [...] code = 2219) 29 U/L COMPREHENSIVE METABOLIC [id number] 00:00:00 Test Item Value Reference Range Interpretation Comments GLUCOSE (test code = 2217) 128 MG/DL BUN (test code = 2208) 26 MG/DL CREATININE (test code = 2214) 0.92 MG/DL eGFR AMER. (test code 81 ML/MIN/1.73 = 18965) eGFR NON- AMER. (test 70 ML/MIN/1.73 code = 87242) CALC BUN/CREAT (test code = 28 RATIO [...] code = 2219) 29 U/L ACUTE HEPATITIS [id number] 00:00:00 Test Item Value Reference Range Interpretation Comments HEPATITIS A IgM (test code = NON-REACTIVE 22060) HEPATITIS B CORE IgM (test code NON-REACTIVE = 4644) HEPATITIS B SURF AG (test code = NON-REACTIVE 2739) HEPATITIS C ANTIBODY (test code NON-REACTIVE = 4675) INTERPRETATION HEPATITIS A: (NOTE) (test code = 2552) INTERPRETATION HEPATITIS B: (NOTE) (test code = 44183) INTERPRETATION HEPATITIS C: (NOTE) (test code = 43507) ACUTE HEPATITIS [id number] 00:00:00 Test Item Value Reference Range Interpretation Comments HEPATITIS A IgM (test code = NON-REACTIVE 66719) HEPATITIS B CORE IgM (test code NON-REACTIVE = 4644) HEPATITIS B SURF AG (test code = NON-REACTIVE 2739) HEPATITIS C ANTIBODY (test code NON-REACTIVE = 4675) INTERPRETATION HEPATITIS A: (NOTE) (test code = 2552) INTERPRETATION HEPATITIS B: (NOTE) (test code = 51087) INTERPRETATION HEPATITIS C: (NOTE) (test code = 10652) [id number] 00:00:00 Test Item Value Reference Range Interpretation Comments AMYLASE (test code = 2205) 32 U/L [id number] 00:00:00 Test Item Value Reference Range Interpretation Comments AMYLASE (test code = 2205) 32 U/L [id number] 00:00:00 Test Item Value Reference Range Interpretation Comments LIPASE (test code = 2058) 22 U/L [id number] 00:00:00 Test Item Value Reference Range Interpretation Comments LIPASE (test code = 2057) 22 U/L [id number] 00:00:00 Test Item Value Reference Range Interpretation Comments LIPASE (test code = 2057) 22 U/L COMPREHENSIVE METABOLIC [id number] 00:00:00 Test Item Value Reference Range Interpretation Comments GLUCOSE (test code = 2217) 128 MG/DL BUN (test code = 2208) 26 MG/DL CREATININE (test code = 2214) 0.92 MG/DL eGFR AMER. (test code 81 ML/MIN/1.73 = 14057) eGFR NON- AMER. (test 70 ML/MIN/1.73 code = 34975) CALC BUN/CREAT (test code = 28 RATIO [...] code = 2219) 29 U/L COMPREHENSIVE METABOLIC [id number] 00:00:00 Test Item Value Reference Range Interpretation Comments GLUCOSE (test code = 2217) 128 MG/DL BUN (test code = 2208) 26 MG/DL CREATININE (test code = 2214) 0.92 MG/DL eGFR AMER. (test code 81 ML/MIN/1.73 = 42844) eGFR NON- AMER. (test 70 ML/MIN/1.73 code = 36821) CALC BUN/CREAT (test code = 28 RATIO [...] code = 2219) 29 U/L ACUTE HEPATITIS [id number] 00:00:00 Test Item Value Reference Range Interpretation Comments HEPATITIS A IgM (test code = NON-REACTIVE 60555) HEPATITIS B CORE IgM (test code NON-REACTIVE = 4644) HEPATITIS B SURF AG (test code = NON-REACTIVE 2739) HEPATITIS C ANTIBODY (test code NON-REACTIVE = 4675) INTERPRETATION HEPATITIS A: (NOTE) (test code = 2552) INTERPRETATION HEPATITIS B: (NOTE) (test code = 50353) INTERPRETATION HEPATITIS C: (NOTE) (test code = 01145) ACUTE HEPATITIS [id number] 00:00:00 Test Item Value Reference Range Interpretation Comments HEPATITIS A IgM (test code = NON-REACTIVE 79176) HEPATITIS B CORE IgM (test code NON-REACTIVE = 4644) HEPATITIS B SURF AG (test code = NON-REACTIVE 2739) HEPATITIS C ANTIBODY (test code NON-REACTIVE = 4675) INTERPRETATION HEPATITIS A: (NOTE) (test code = 2552) INTERPRETATION HEPATITIS B: (NOTE) (test code = 85594) INTERPRETATION HEPATITIS C: (NOTE) (test code = 69883) [id number] 00:00:00 Test Item Value Reference Range Interpretation Comments AMYLASE (test code = 2205) 32 U/L [id number] 00:00:00 Test Item Value Reference Range Interpretation Comments AMYLASE (test code = 2205) 32 U/L [id number] 00:00:00 Test Item Value Reference Range Interpretation Comments LIPASE (test code = 2058) 22 U/L [id number] 00:00:00 Test Item Value Reference Range Interpretation Comments LIPASE (test code = 2058) 22 U/L [id number] 00:00:00 Test Item Value Reference Range Interpretation Comments LIPASE (test code = 2057) 22 U/L COMPREHENSIVE METABOLIC [id number] 00:00:00 Test Item Value Reference Range Interpretation Comments GLUCOSE (test code = 2217) 128 MG/DL BUN (test code = 2208) 26 MG/DL CREATININE (test code = 2214) 0.92 MG/DL eGFR AMER. (test code 81 ML/MIN/1.73 = 55741) eGFR NON- AMER. (test 70 ML/MIN/1.73 code = 55710) CALC BUN/CREAT (test code = 28 RATIO [...] code = 2219) 29 U/L ACUTE HEPATITIS [id number] 00:00:00 Test Item Value Reference Range Interpretation Comments HEPATITIS A IgM (test code = NON-REACTIVE 88298) HEPATITIS B CORE IgM (test code NON-REACTIVE = 4644) HEPATITIS B SURF AG (test code = NON-REACTIVE 2508) HEPATITIS C ANTIBODY (test code NON-REACTIVE = 2711) INTERPRETATION HEPATITIS A: (NOTE) (test code = 2552) INTERPRETATION HEPATITIS B: (NOTE) (test code = 76380) INTERPRETATION HEPATITIS C: (NOTE) (test code = 79723) [id number] 00:00:00 Test Item Value Reference Range Interpretation Comments AMYLASE (test code = 5) 32 U/L [id number] 00:00:00 Test Item Value Reference Range Interpretation Comments LIPASE (test code = 2057) 22 U/L [id number] 00:00:00 Test Item Value Reference Range Interpretation Comments LIPASE (test code = 2057) 22 U/L COMPREHENSIVE METABOLIC [id number] 00:00:00 Test Item Value Reference Range Interpretation Comments GLUCOSE (test code = 2217) 128 MG/DL BUN (test code = 2208) 26 MG/DL CREATININE (test code = 2214) 0.92 MG/DL eGFR AMER. (test code 81 ML/MIN/1.73 = 04889) eGFR NON- AMER. (test 70 ML/MIN/1.73 code = 36223) CALC BUN/CREAT (test code = 28 RATIO [...] code = 2219) 29 U/L COMPREHENSIVE METABOLIC [id number] 00:00:00 Test Item Value Reference Range Interpretation Comments GLUCOSE (test code = 2217) 128 MG/DL BUN (test code = 2208) 26 MG/DL CREATININE (test code = 2214) 0.92 MG/DL eGFR AMER. (test code 81 ML/MIN/1.73 = 47992) eGFR NON- AMER. (test 70 ML/MIN/1.73 code = 53383) CALC BUN/CREAT (test code = 28 RATIO [...] code = 2219) 29 U/L ACUTE HEPATITIS [id number] 00:00:00 Test Item Value Reference Range Interpretation Comments HEPATITIS A IgM (test code = NON-REACTIVE 53374) HEPATITIS B CORE IgM (test code NON-REACTIVE = 4644) HEPATITIS B SURF AG (test code = NON-REACTIVE 2739) HEPATITIS C ANTIBODY (test code NON-REACTIVE = 4675) INTERPRETATION HEPATITIS A: (NOTE) (test code = 2552) INTERPRETATION HEPATITIS B: (NOTE) (test code = 41619) INTERPRETATION HEPATITIS C: (NOTE) (test code = 16670) ACUTE HEPATITIS [id number] 00:00:00 Test Item Value Reference Range Interpretation Comments HEPATITIS A IgM (test code = NON-REACTIVE 51283) HEPATITIS B CORE IgM (test code NON-REACTIVE = 4644) HEPATITIS B SURF AG (test code = NON-REACTIVE 2739) HEPATITIS C ANTIBODY (test code NON-REACTIVE = 4675) INTERPRETATION HEPATITIS A: (NOTE) (test code = 2552) INTERPRETATION HEPATITIS B: (NOTE) (test code = 85979) INTERPRETATION HEPATITIS C: (NOTE) (test code = 48490) [id number] 00:00:00 Test Item Value Reference Range Interpretation Comments AMYLASE (test code = 2205) 32 U/L [id number] 00:00:00 Test Item Value Reference Range Interpretation Comments AMYLASE (test code = 2205) 32 U/L [id number] 00:00:00 Test Item Value Reference Range Interpretation Comments LIPASE (test code = 2058) 22 U/L [id number] 00:00:00 Test Item Value Reference Range Interpretation Comments LIPASE (test code = 2058) 22 U/L [id number] 00:00:00 Test Item Value Reference Range Interpretation Comments LIPASE (test code = 2058) 22 U/L [id number] 00:00:00 Test Item Value Reference Range Interpretation Comments TSH, THIRD GENERATION (test code 4.890 UIU/ML = 2821) [id number] 00:00:00 Test Item Value Reference Range Interpretation Comments TSH, THIRD GENERATION (test code 4.890 UIU/ML = 2821) [id number] 00:00:00 Test Item Value Reference Range Interpretation Comments TSH, THIRD GENERATION (test code 4.890 UIU/ML = 2821) COMPREHENSIVE METABOLIC [id number] 00:00:00 Test Item Value Reference Range Interpretation Comments GLUCOSE (test code = 2217) 121 MG/DL BUN (test code = 2208) 40 MG/DL CREATININE (test code = 2214) 1.48 MG/DL eGFR AMER. (test code 45 ML/MIN/1.73 = 58289) eGFR NON- AMER. (test 39 ML/MIN/1.73 code = 84800) CALC BUN/CREAT (test code = 27 RATIO [...] code = 2219) 20 U/L COMPREHENSIVE METABOLIC [id number] 00:00:00 Test Item Value Reference Range Interpretation Comments GLUCOSE (test code = 2217) 121 MG/DL BUN (test code = 2208) 40 MG/DL CREATININE (test code = 2214) 1.48 MG/DL eGFR AMER. (test code 45 ML/MIN/1.73 = 27593) eGFR NON- AMER. (test 39 ML/MIN/1.73 code = 95775) CALC BUN/CREAT (test code = 27 RATIO [...] ALT (test code = 2219) 20 U/L [id number] 00:00:00 Test Item Value Reference Range Interpretation Comments TSH, THIRD GENERATION (test code 4.890 UIU/ML = 2821) [id number] 00:00:00 Test Item Value Reference Range Interpretation Comments TSH, THIRD GENERATION (test code 4.890 UIU/ML = 2821) [id number] 00:00:00 Test Item Value Reference Range Interpretation Comments TSH, THIRD GENERATION (test code 4.890 UIU/ML = 2821) COMPREHENSIVE METABOLIC [id number] 00:00:00 Test Item Value Reference Range Interpretation Comments GLUCOSE (test code = 2217) 121 MG/DL BUN (test code = 2208) 40 MG/DL CREATININE (test code = 2214) 1.48 MG/DL eGFR AMER. (test code 45 ML/MIN/1.73 = 88543) eGFR NON- AMER. (test 39 ML/MIN/1.73 code = 99746) CALC BUN/CREAT (test code = 27 RATIO [...] code = 2219) 20 U/L COMPREHENSIVE METABOLIC [id number] 00:00:00 Test Item Value Reference Range Interpretation Comments GLUCOSE (test code = 2217) 121 MG/DL BUN (test code = 2208) 40 MG/DL CREATININE (test code = 2214) 1.48 MG/DL eGFR AMER. (test code 45 ML/MIN/1.73 = 32033) eGFR NON- AMER. (test 39 ML/MIN/1.73 code = 33286) CALC BUN/CREAT (test code = 27 RATIO [...] BILIRUBIN, TOTAL (test code = 0.2 MG/DL 7) ALKALINE PHOSPHATASE (test 99 U/L code = 2204) AST (test code = 2218) 15 U/L ALT (test code = 2219) 20 U/L [id number] 00:00:00 Test Item Value Reference Range Interpretation Comments TSH, THIRD GENERATION (test code 4.890 UIU/ML = 2821) [id number] 00:00:00 Test Item Value Reference Range Interpretation Comments TSH, THIRD GENERATION (test code 4.890 UIU/ML = 2821) COMPREHENSIVE METABOLIC [id number] 00:00:00 Test Item Value Reference Range Interpretation Comments GLUCOSE (test code = 2217) 121 MG/DL BUN (test code = 2208) 40 MG/DL CREATININE (test code = 2214) 1.48 MG/DL eGFR AMER. (test code 45 ML/MIN/1.73 = 52887) eGFR NON- AMER. (test 39 ML/MIN/1.73 code = 14248) CALC BUN/CREAT (test code = 27 RATIO [...] ALT (test code = 2219) 20 U/L [id number] 00:00:00 Test Item Value Reference Range Interpretation Comments TSH, THIRD GENERATION (test code 4.890 UIU/ML = 2821) [id number] 00:00:00 Test Item Value Reference Range Interpretation Comments TSH, THIRD GENERATION (test code 4.890 UIU/ML = 2821) [id number] 00:00:00 Test Item Value Reference Range Interpretation Comments TSH, THIRD GENERATION (test code 4.890 UIU/ML = 2821) COMPREHENSIVE METABOLIC [id number] 00:00:00 Test Item Value Reference Range Interpretation Comments GLUCOSE (test code = 2217) 121 MG/DL BUN (test code = 2208) 40 MG/DL CREATININE (test code = 2214) 1.48 MG/DL eGFR AMER. (test code 45 ML/MIN/1.73 = 14313) eGFR NON- AMER. (test 39 ML/MIN/1.73 code = 86783) CALC BUN/CREAT (test code = 27 RATIO [...] code = 2219) 20 U/L COMPREHENSIVE METABOLIC [id number] 00:00:00 Test Item Value Reference Range Interpretation Comments GLUCOSE (test code = 2217) 121 MG/DL BUN (test code = 2208) 40 MG/DL CREATININE (test code = 2214) 1.48 MG/DL eGFR AMER. (test code 45 ML/MIN/1.73 = 93902) eGFR NON- AMER. (test 39 ML/MIN/1.73 code = 37100) CALC BUN/CREAT (test code = 27 RATIO [...] (test code = 2219) 20 U/L LIPID [id number] 00:00:00 Test Item Value Reference Range Interpretation Comments CHOLESTEROL (test code = 2210) 261 MG/DL TRIGLYCERIDES (test code = 2232) 165 MG/DL HDL CHOLESTEROL (test code = 2220) 58 MG/DL CALC LDL CHOL (test code = 2237) 170 MG/DL RISK RATIO LDL/HDL (test code = 2.93 RATIO 2238) LIPID [id number] 00:00:00 Test Item Value Reference Range Interpretation Comments CHOLESTEROL (test code = 2210) 261 MG/DL TRIGLYCERIDES (test code = 2232) 165 MG/DL HDL CHOLESTEROL (test code = 2220) 58 MG/DL CALC LDL CHOL (test code = 2237) 170 MG/DL RISK RATIO LDL/HDL (test code = 2.93 RATIO 2238) CBC W/AUTO [id number] 00:00:00 Test Item Value Reference Range Interpretation [...] code = 1015) 378 K/UL CBC W/AUTO [id number] 00:00:00 Test Item Value Reference Range Interpretation [...] code = 1015) 378 K/UL CBC W/AUTO [id number] 00:00:00 Test Item Value Reference Range Interpretation [...] (test code = 1015) 378 K/UL HEMOGLOBIN [id number] 00:00:00 Test Item Value Reference Range Interpretation Comments HEMOGLOBIN A1c (test code = 40614) 6.4 % HEMOGLOBIN [id number] 00:00:00 Test Item Value Reference Range Interpretation Comments HEMOGLOBIN A1c (test code = 04955) 6.4 % HEMOGLOBIN [id number] 00:00:00 Test Item Value Reference Range Interpretation Comments HEMOGLOBIN A1c (test code = 59880) 6.4 % [id number] 00:00:00 Test Item Value Reference Range Interpretation Comments TSH (test code = 2821) 5.290 UIU/ML [id number] 00:00:00 Test Item Value Reference Range Interpretation Comments TSH (test code = 2821) 5.290 UIU/ML [id number] 00:00:00 Test Item Value Reference Range Interpretation Comments TSH (test code = 2821) 5.290 UIU/ML LIPID [id number] 00:00:00 Test Item Value Reference Range Interpretation Comments CHOLESTEROL (test code = 2210) 261 MG/DL TRIGLYCERIDES (test code = 2232) 165 MG/DL HDL CHOLESTEROL (test code = 2220) 58 MG/DL CALC LDL CHOL (test code = 2237) 170 MG/DL RISK RATIO LDL/HDL (test code = 2.93 RATIO 2238) LIPID [id number] 00:00:00 Test Item Value Reference Range Interpretation Comments CHOLESTEROL (test code = 2210) 261 MG/DL TRIGLYCERIDES (test code = 2232) 165 MG/DL HDL CHOLESTEROL (test code = 2220) 58 MG/DL CALC LDL CHOL (test code = 2237) 170 MG/DL RISK RATIO LDL/HDL (test code = 2.93 RATIO 2238) CBC W/AUTO [id number] 00:00:00 Test Item Value Reference Range Interpretation [...] code = 1015) 378 K/UL CBC W/AUTO [id number] 00:00:00 Test Item Value Reference Range Interpretation [...] code = 1015) 378 K/UL CBC W/AUTO [id number] 00:00:00 Test Item Value Reference Range Interpretation [...] (test code = 1015) 378 K/UL HEMOGLOBIN [id number] 00:00:00 Test Item Value Reference Range Interpretation Comments HEMOGLOBIN A1c (test code = 68368) 6.4 % HEMOGLOBIN [id number] 00:00:00 Test Item Value Reference Range Interpretation Comments HEMOGLOBIN A1c (test code = 75952) 6.4 % HEMOGLOBIN [id number] 00:00:00 Test Item Value Reference Range Interpretation Comments HEMOGLOBIN A1c (test code = 76713) 6.4 % [id number] 00:00:00 Test Item Value Reference Range Interpretation Comments TSH (test code = 2821) 5.290 UIU/ML [id number] 00:00:00 Test Item Value Reference Range Interpretation Comments TSH (test code = 2821) 5.290 UIU/ML [id number] 00:00:00 Test Item Value Reference Range Interpretation Comments TSH (test code = 2821) 5.290 UIU/ML LIPID [id number] 00:00:00 Test Item Value Reference Range Interpretation Comments CHOLESTEROL (test code = 2210) 261 MG/DL TRIGLYCERIDES (test code = 2232) 165 MG/DL HDL CHOLESTEROL (test code = 2220) 58 MG/DL CALC LDL CHOL (test code = 2237) 170 MG/DL RISK RATIO LDL/HDL (test code = 2.93 RATIO 2238) CBC W/AUTO [id number] 00:00:00 Test Item Value Reference Range Interpretation [...] code = 1015) 378 K/UL CBC W/AUTO [id number] 00:00:00 Test Item Value Reference Range Interpretation [...] (test code = 1015) 378 K/UL HEMOGLOBIN [id number] 00:00:00 Test Item Value Reference Range Interpretation Comments HEMOGLOBIN A1c (test code = 10233) 6.4 % HEMOGLOBIN [id number] 00:00:00 Test Item Value Reference Range Interpretation Comments HEMOGLOBIN A1c (test code = 30828) 6.4 % [id number] 00:00:00 Test Item Value Reference Range Interpretation Comments TSH (test code = 2821) 5.290 UIU/ML [id number] 00:00:00 Test Item Value Reference Range Interpretation Comments TSH (test code = 2821) 5.290 UIU/ML LIPID [id number] 00:00:00 Test Item Value Reference Range Interpretation Comments CHOLESTEROL (test code = 2210) 261 MG/DL TRIGLYCERIDES (test code = 2232) 165 MG/DL HDL CHOLESTEROL (test code = 2220) 58 MG/DL CALC LDL CHOL (test code = 2237) 170 MG/DL RISK RATIO LDL/HDL (test code = 2.93 RATIO 2238) LIPID [id number] 00:00:00 Test Item Value Reference Range Interpretation Comments CHOLESTEROL (test code = 2210) 261 MG/DL TRIGLYCERIDES (test code = 2232) 165 MG/DL HDL CHOLESTEROL (test code = 2220) 58 MG/DL CALC LDL CHOL (test code = 2237) 170 MG/DL RISK RATIO LDL/HDL (test code = 2.93 RATIO 2238) CBC W/AUTO [id number] 00:00:00 Test Item Value Reference Range Interpretation [...] code = 1015) 378 K/UL CBC W/AUTO [id number] 00:00:00 Test Item Value Reference Range Interpretation [...] code = 1015) 378 K/UL CBC W/AUTO [id number] 00:00:00 Test Item Value Reference Range Interpretation [...] (test code = 1015) 378 K/UL HEMOGLOBIN [id number] 00:00:00 Test Item Value Reference Range Interpretation Comments HEMOGLOBIN A1c (test code = 23141) 6.4 % HEMOGLOBIN [id number] 00:00:00 Test Item Value Reference Range Interpretation Comments HEMOGLOBIN A1c (test code = 67197) 6.4 % HEMOGLOBIN [id number] 00:00:00 Test Item Value Reference Range Interpretation Comments HEMOGLOBIN A1c (test code = 80708) 6.4 % [id number] 00:00:00 Test Item Value Reference Range Interpretation Comments TSH (test code = 2821) 5.290 UIU/ML [id number] 00:00:00 Test Item Value Reference Range Interpretation Comments TSH (test code = 2821) 5.290 UIU/ML [id number] 00:00:00 Test Item Value Reference Range Interpretation [...] code = 2821) 1.030 UIU/ML COMPREHENSIVE METABOLIC [id number] 00:00:00 Test Item Value Reference Range Interpretation Comments GLUCOSE (test code = 2217) 106 MG/DL BUN (test code = 2208) 23 MG/DL CREATININE (test code = 2214) 0.66 MG/DL eGFR AMER. (test code 114 ML/MIN/1.73 = 21399) eGFR NON- AMER. (test 99 ML/MIN/1.73 code = 64493) CALC BUN/CREAT (test code = 35 RATIO [...] code = 2219) 31 U/L COMPREHENSIVE METABOLIC [id number] 00:00:00 Test Item Value Reference Range Interpretation Comments GLUCOSE (test code = 2217) 106 MG/DL BUN (test code = 2208) 23 MG/DL CREATININE (test code = 2214) 0.66 MG/DL eGFR AMER. (test code 114 ML/MIN/1.73 = 45498) eGFR NON- AMER. (test 99 ML/MIN/1.73 code = 09151) CALC BUN/CREAT (test code = 35 RATIO [...] code = 2821) 0.335 UIU/ML COMPREHENSIVE METABOLIC [id number] 00:00:00 Test Item Value Reference Range Interpretation Comments GLUCOSE (test code = 2217) 106 MG/DL BUN (test code = 2208) 23 MG/DL CREATININE (test code = 2214) 0.66 MG/DL eGFR AMER. (test code 114 ML/MIN/1.73 = 84638) eGFR NON- AMER. (test 99 ML/MIN/1.73 code = 11540) CALC BUN/CREAT (test code = 35 RATIO [...] code = 2219) 31 U/L COMPREHENSIVE METABOLIC [id number] 00:00:00 Test Item Value Reference Range Interpretation Comments GLUCOSE (test code = 2217) 106 MG/DL BUN (test code = 2208) 23 MG/DL CREATININE (test code = 2214) 0.66 MG/DL eGFR AMER. (test code 114 ML/MIN/1.73 = 89014) eGFR NON- AMER. (test 99 ML/MIN/1.73 code = 78225) CALC BUN/CREAT (test code = 35 RATIO [...] code = 2821) 0.335 UIU/ML COMPREHENSIVE METABOLIC [id number] 00:00:00 Test Item Value Reference Range Interpretation Comments GLUCOSE (test code = 2217) 106 MG/DL BUN (test code = 2208) 23 MG/DL CREATININE (test code = 2214) 0.66 MG/DL eGFR AMER. (test code 114 ML/MIN/1.73 = 27543) eGFR NON- AMER. (test 99 ML/MIN/1.73 code = 71791) CALC BUN/CREAT (test code = 35 RATIO [...] code = 2821) 0.335 UIU/ML COMPREHENSIVE METABOLIC [id number] 00:00:00 Test Item Value Reference Range Interpretation Comments GLUCOSE (test code = 2217) 106 MG/DL BUN (test code = 2208) 23 MG/DL CREATININE (test code = 2214) 0.66 MG/DL eGFR AMER. (test code 114 ML/MIN/1.73 = 65420) eGFR NON- AMER. (test 99 ML/MIN/1.73 code = 45304) CALC BUN/CREAT (test code = 35 RATIO [...] code = 2219) 31 U/L COMPREHENSIVE METABOLIC [id number] 00:00:00 Test Item Value Reference Range Interpretation Comments GLUCOSE (test code = 2217) 106 MG/DL BUN (test code = 2208) 23 MG/DL CREATININE (test code = 2214) 0.66 MG/DL eGFR AMER. (test code 114 ML/MIN/1.73 = 52386) eGFR NON- AMER. (test 99 ML/MIN/1.73 code = 55803) CALC BUN/CREAT (test code = 35 RATIO [...] code = 2821) 0.335 UIU/ML COMPREHENSIVE METABOLIC [id number] 00:00:00 Test Item Value Reference Range Interpretation Comments GLUCOSE (test code = 2217) 103 MG/DL BUN (test code = 2208) 15 MG/DL CREATININE (test code = 2214) 0.77 MG/DL eGFR AMER. (test code 101 ML/MIN/1.73 = 51846) eGFR NON- AMER. (test 87 ML/MIN/1.73 code = 60776) CALC BUN/CREAT (test code = 19 RATIO [...] code = 2219) 24 U/L COMPREHENSIVE METABOLIC [id number] 00:00:00 Test Item Value Reference Range Interpretation Comments GLUCOSE (test code = 2217) 103 MG/DL BUN (test code = 2208) 15 MG/DL CREATININE (test code = 2214) 0.77 MG/DL eGFR AMER. (test code 101 ML/MIN/1.73 = 83791) eGFR NON- AMER. (test 87 ML/MIN/1.73 code = 49236) CALC BUN/CREAT (test code = 19 RATIO [...] code = 2821) 0.424 UIU/ML COMPREHENSIVE METABOLIC [id number] 00:00:00 Test Item Value Reference Range Interpretation Comments GLUCOSE (test code = 2217) 103 MG/DL BUN (test code = 2208) 15 MG/DL CREATININE (test code = 2214) 0.77 MG/DL eGFR AMER. (test code 101 ML/MIN/1.73 = 24612) eGFR NON- AMER. (test 87 ML/MIN/1.73 code = 19836) CALC BUN/CREAT (test code = 19 RATIO [...] code = 2219) 24 U/L COMPREHENSIVE METABOLIC [id number] 00:00:00 Test Item Value Reference Range Interpretation Comments GLUCOSE (test code = 2217) 103 MG/DL BUN (test code = 2208) 15 MG/DL CREATININE (test code = 2214) 0.77 MG/DL eGFR AMER. (test code 101 ML/MIN/1.73 = 93964) eGFR NON- AMER. (test 87 ML/MIN/1.73 code = 78216) CALC BUN/CREAT (test code = 19 RATIO [...] code = 2821) 0.424 UIU/ML COMPREHENSIVE METABOLIC [id number] 00:00:00 Test Item Value Reference Range Interpretation Comments GLUCOSE (test code = 2217) 103 MG/DL BUN (test code = 2208) 15 MG/DL CREATININE (test code = 2214) 0.77 MG/DL eGFR AMER. (test code 101 ML/MIN/1.73 = 03057) eGFR NON- AMER. (test 87 ML/MIN/1.73 code = 27953) CALC BUN/CREAT (test code = 19 RATIO [...] code = 2821) 0.424 UIU/ML COMPREHENSIVE METABOLIC [id number] 00:00:00 Test Item Value Reference Range Interpretation Comments GLUCOSE (test code = 2217) 103 MG/DL BUN (test code = 2208) 15 MG/DL CREATININE (test code = 2214) 0.77 MG/DL eGFR AMER. (test code 101 ML/MIN/1.73 = 40440) eGFR NON- AMER. (test 87 ML/MIN/1.73 code = 82460) CALC BUN/CREAT (test code = 19 RATIO [...] code = 2219) 24 U/L COMPREHENSIVE METABOLIC [id number] 00:00:00 Test Item Value Reference Range Interpretation Comments GLUCOSE (test code = 2217) 103 MG/DL BUN (test code = 2208) 15 MG/DL CREATININE (test code = 2214) 0.77 MG/DL eGFR AMER. (test code 101 ML/MIN/1.73 = 40303) eGFR NON- AMER. (test 87 ML/MIN/1.73 code = 83640) CALC BUN/CREAT (test code = 19 RATIO [...] CALCULATED T7 (FTI) (test code = 1.37 0740) TSH (test code = 2821) 0.424 UIU/ML THYROID II PROFILE (T3U, T4, T7, TSH)[id number] 00:00:00 Test Item Value Reference Range Interpretation Comments T3 UPTAKE (test code = 2817) 35.1 % T4 (THYROXINE) (test code = 3.9 UG/DL 2819) CALCULATED T7 (FTI) (test code = 1.37 2820) TSH (test code = 2821) 0.424 UIU/ML CULTURE, [id number] 00:00:00 Test Item Value Reference Range Interpretation Comments CULTURE, URINE (test SPECIMEN NUMBER: code = 08994) [id number] CULTURE, [id number] 00:00:00 Test Item Value Reference Range Interpretation Comments CULTURE, URINE (test SPECIMEN NUMBER: code = 11222) [id number] CULTURE, [id number] 00:00:00 Test Item Value Reference Range Interpretation Comments CULTURE, URINE (test SPECIMEN NUMBER: code = 80022) [id number] CULTURE, [id number] 00:00:00 Test Item Value Reference Range Interpretation Comments CULTURE, URINE (test SPECIMEN NUMBER: code = 96698) [id number] CULTURE, [id number] 00:00:00 Test Item Value Reference Range Interpretation Comments CULTURE, URINE (test SPECIMEN NUMBER: code = 19354) [id number] CULTURE, [id number] 00:00:00 Test Item Value Reference Range Interpretation Comments CULTURE, URINE (test SPECIMEN NUMBER: code = 89896) [id number] CULTURE, [id number] 00:00:00 Test Item Value Reference Range Interpretation Comments CULTURE, URINE (test SPECIMEN NUMBER: code = 62062) [id number] CULTURE, [id number] 00:00:00 Test Item Value Reference Range Interpretation Comments CULTURE, URINE (test SPECIMEN NUMBER: code = 39944) [id number] CULTURE, [id number] 00:00:00 Test Item Value Reference Range Interpretation Comments CULTURE, URINE (test SPECIMEN NUMBER: code = 77549) [id number] CULTURE, [id number] 00:00:00 Test Item Value Reference Range Interpretation Comments CULTURE, URINE (test SPECIMEN NUMBER: code = 36421) [id number] CULTURE, [id number] 00:00:00 Test Item Value Reference Range Interpretation Comments CULTURE, URINE (test SPECIMEN NUMBER: code = 90503) [id number] CULTURE, [id number] 00:00:00 Test Item Value Reference Range Interpretation Comments CULTURE, URINE (test SPECIMEN NUMBER: code = 85613) [id number] CULTURE, [id number] 00:00:00 Test Item Value Reference Range Interpretation Comments CULTURE, URINE (test SPECIMEN NUMBER: code = 91711) [id number] CULTURE, [id number] 00:00:00 Test Item Value Reference Range Interpretation Comments CULTURE, URINE (test SPECIMEN NUMBER: code = 24719) [id number]
[2022-02-20 11:08] LABS: Urine Blood Trace-intact (Negative); Urine Glucose Negative (Negative); Urine Protein Negative (Negative); Urine Specific Gravity 1.025 (1.005-1.030)
--- NOTE | 2022-02-20 11:17 | RAD REPORT ---
EXAM DESCRIPTION: CT - Head Brain Wo Cont - 02/20/2022 11:10 am CLINICAL HISTORY: headache COMPARISON: Head Brain Wo Cont dated 12/28/2021 TECHNIQUE: Axial 5 mm thick images of the head were obtained without IV contrast. All CT scans are performed using dose optimization technique as appropriate and may include automated exposure control or mA/KV adjustment according to patient size. FINDINGS: No intracranial hemorrhage, mass, edema or shift of mid-line structures. No acute infarcti on changes seen. No cortical edema or sulcal effacement. Patient has a mild bifrontal atrophy pattern that matches the December study. No significant degree of chronic ischemic change identifiable. Ventr icles are normal. Physiologic calcifications and arterial calcifications are present. Mastoid air cells and visualized portions of the paranasal sinuses are clear. No globe or orbital con tent abnormality. No acute bony findings. IMPRESSION: Negative non-contrast CT head examination for acute finding.
[2022-02-20] MEDS ORDERED: dexAMETHasone 10 MG/ML VIAL ONE (11:36)
[2022-02-20] MEDS ORDERED: LORazepam 2 MG/ML VIAL ONE (11:36)
[2022-02-20] MEDS ORDERED: METOCLOPRAMIDE 10 MG/2mL INJ ONE (11:40)
[2022-02-20 11:47] LABS: SARS-COV-2 RT PCR NEGATIVE (NEGATIVE)
[2022-02-20] MEDS ORDERED: ACETAMINOPHEN 325 MG TABLET ONE (11:52)
[2022-02-20 11:55] LABS: Transitional Epithelial <5 /HPF (None Seen); Urine Bacteria None Seen /HPF (<20); Urine Mucus 2+ /HPF (None Seen)
[2022-02-20 12:02] LABS: Barbiturates NEGATIVE (NEGATIVE); Benzodiazepines NEGATIVE (NEGATIVE); Cocaine NEGATIVE (NEGATIVE); METHAMPHETAM NEGATIVE (NEGATIVE); Methadone NEGATIVE (NEGATIVE); Opiates NEGATIVE (NEGATIVE); Phencyclidine NEGATIVE (NEGATIVE); THC Cannibis NEGATIVE (NEGATIVE)
--- NOTE | 2022-02-20 12:11 | ER ---
Nurse's Notes [facility] Name: Jaimie Amanda Age: 61 yrs Sex: Female : 1960 Arrival Date: 02/20/2022 Time: 10:47 Bed 13 Private MD: Diagnosis: Headache;Nausea with vomiting, unspecified Presentation: 02/20 10:48 Chief complaint: Patient states: she has been having a headache since about 0600 this ap3 morning, along with nausea and vomiting that started this morning as well. Coronavirus screen: Client presents with at least one sign or symptom that may indicate coronavirus-19. Ebola Screen: No symptoms or risks identified at this time. Initial Sepsis Screen: Does the patient meet any 2 criteria? No. Patient's initial sepsis screen is negative. Does the patient have a suspected source of infection? No. Patient's initial sepsis screen is negative. Risk Assessment: Do you want to hurt yourself or someone else? Patient reports no desire to harm self or others. Onset of symptoms was February 20, 2022 at 06:00. 10:48 Method Of Arrival: Ambulatory ap3 10:48 Acuity: ZHEN 4 ap3 Triage Assessment: 10:51 Headache History: The patient has had previous headaches and this one is similar to ap3 previous episodes. General: Appears in no apparent distress. Behavior is calm, cooperative. Pain: Complains of pain in head and generalized body aches Pain began gradually, this morning Also complains of nausea. Pain: Pain currently is 7 out of 10 on a pain scale. Neuro: Level of Consciousness is awake, alert, obeys commands, Oriented to person, place, time, situation, Appropriate for age Gait is steady, Speech is normal. Cardiovascular: Patient's skin is warm and dry. Respiratory: Airway is patent Respiratory effort is even, unlabored, Respiratory pattern is regular, symmetrical. GI: Reports nausea, vomiting. Historical: - Allergies: 10:50 No Known Allergies; ap3 - PMHx: 10:50 Alcoholism; Anxiety; Chronic Abdominal Pain; Hypertensive disorder; Hypothyroidism; low ap3 NA; NIDDM; - PSHx: 10:50 Thyroidectomy; ap3 - Immunization history:: Client reports receiving the 2nd dose of the Covid vaccine, Flu vaccine is not up to date. - Social history:: Smoking status: Patient reports the use of cigarette tobacco products, denies chronic smoking, but will smoke occasionally. Screenin:51 Abuse screen: Denies threats or abuse. Nutritional screening: No deficits noted. ap3 Tuberculosis screening: No symptoms or risk factors identified. 11:45 [facility] ED Fall Risk Assessment (Adult) History of falling in the last 3 months, ko1 including since admission No falls in past 3 months (0 pts) Confusion or Disorientation No (0 pts) Intoxicated or Sedated No (0 pts) Impaired Gait No (0 pts) Mobility Assist Device Used No (0 pt) Altered Elimination No (0 pt) Score/Fall Risk Level 0 - 2 = Low Risk Oriented to surroundings, Maintained a safe environment, Educated pt \T\ family on fall prevention, incl call for assistance when getting out of bed. Humpty Dumpty Scale Fall Assessment Tool (age< 18yrs) Age 13 years and above (1 pt) Gender Female (1 pt) Diagnosis Other diagnosis (1 pt) Cognitive Impairments Oriented to own ability (1 pt) Environmental Factors Outpatient area (1 pt) Fall Risk Score/ Level Low Fall Risk: </= 11 points. Fall Risk No fall in past 12 months (0 pts). Assessment: 11:22 General: Appears distressed, uncomfortable, Behavior is anxious, restless. Pain: ko1 Complains of pain in headache and generalized pain. 11:50 Reassessment: Patients IV infiltrated after reglan but prior to ativan and decadron. ko1 Patient refused to be stuck again and requested po tylenol for headache. Provider informed. Tylenol given. 12:00 Reassessment: Patient pulled her IV out after being instructed to wait a moment for dc ko1 paperwork and labwork to return. Dressing applied, no bleeding noted. Vital Signs: 10:48 Pulse 69; Resp 17; Pulse Ox 98% on R/A; Weight 70.31 kg; Height 5 ft. 7 in. (170.18 cm);ap3 10:48 BP 157 / 86; ap3 11:45 BP 154 / 85; Pulse 70; Pulse Ox 99% on R/A; ko1 10:48 Body Mass Index 24.28 (70.31 kg, 170.18 cm) ap3 ED Course: 10:47 Patient arrived in ED. am2 10:47 Diego Ang PA is PHCP. cp 10:47 Zo Zapata MD is Attending Physician. cp 10:50 Triage completed. ap3 10:51 Vy Cortez, RN is Primary Nurse. ko1 10:51 Arm band placed on right wrist. ap3 11:02 COVID-19/FLU A+B Sent. ko1 11:11 CT Head Brain wo Cont In Process Unspecified. EDMS 11:30 Patient has correct armband on for positive identification. Placed in gown. Bed in low ko1 position. Call light in reach. Side rails up X 1. Pulse ox on. NIBP on. 11:30 No provider procedures requiring assistance completed. ko1 12:26 Inserted saline lock: 22 gauge in left antecubital area, using aseptic technique. Blood ko1 collected. IV discontinued, bleeding controlled, No redness/swelling at site. Pressure dressing applied. Administered Medications: 11:38 Drug: Reglan (metoCLOPramide) 10 mg Route: IVP; Site: left antecubital; ko1 12:15 Not Given (Patient Refused): Ativan (LORazepam) 0.5 mg IVP once ko1 12:15 Not Given (patient removed iv, refused another onee): Dexamethasone 10 mg IVP once; ko1 (not to exceed 40 mg) Medication: 11:45 VIS not applicable for this client. ko1 Outcome: 12:10 Discharge ordered by . cp 12:26 Discharged to home ambulatory. ko1 12:26 Condition: improved 12:26 Discharge instructions given to patient, Instructed on discharge instructions, follow up and referral plans. medication usage, Demonstrated understanding of instructions, follow-up care, medications, Prescriptions given X 1. 12:29 Patient left the ED. ko1 Signatures: Dispatcher [employer] EDWI Diego Ang PA PA cp Moreno, Amanda am2 Elisa Gutierrez, RN RN ap3 Vy Cortez, RN RN ko1
--- NOTE | 2022-02-20 12:11 | EDPHYS ---
Physician Documentation [facility] Name: Jaimie Amanda Age: 61 yrs Sex: Female : 1960 Arrival Date: 02/20/2022 Time: 10:47 Bed 13 Private MD: ED Physician Zo Zapata HPI: 02/20 11:00 This 61 yrs old Female presents to ER via Ambulatory with complaints of cp bodyaches/shaky, Headache, Nausea/Vomiting. 11:00 The patient complains of pain to the forehead and back of head. The patient describes cp the headache as aching, constant. Onset: The symptoms/episode began/occurred this morning, about 0600. Associated signs and symptoms: Pertinent positives: nausea, vomiting, body aches, Pertinent negatives: altered mental status, fever, neck stiffness, paresthesias, sinus congestion, sinus tenderness, vision changes, weakness. Severity of symptoms: in the emergency department the pain is unchanged, despite home interventions. 11:00 Headache History: Denies prior headaches. cp Historical: - Allergies: 10:50 No Known Allergies; ap3 - PMHx: 10:50 Alcoholism; Anxiety; Chronic Abdominal Pain; Hypertensive disorder; Hypothyroidism; low ap3 NA; NIDDM; - PSHx: 10:50 Thyroidectomy; ap3 - Immunization history:: Client reports receiving the 2nd dose of the Covid vaccine, Flu vaccine is not up to date. - Social history:: Smoking status: Patient reports the use of cigarette tobacco products, denies chronic smoking, but will smoke occasionally. ROS: 11:05 Constitutional: Positive for body aches, Negative for chills, fever, poor PO intake. cp 11:05 Eyes: Negative for injury, pain, redness, and discharge. cp 11:05 ENT: Negative for drainage from ear(s), ear pain, sore throat, difficulty swallowing, difficulty handling secretions. 11:05 Neck: Negative for pain with movement, pain at rest, stiffness. 11:05 Cardiovascular: Negative for chest pain, edema, palpitations. 11:05 Respiratory: Negative for cough, shortness of breath, wheezing. 11:05 Abdomen/GI: Positive for nausea and vomiting, Negative for diarrhea, constipation, hematemesis, black/tarry stool, rectal bleeding. 11:05 Back: Negative for pain at rest, pain with movement. 11:05 : Negative for urinary symptoms. 11:05 Skin: Negative for cellulitis, rash. 11:05 Neuro: Positive for headache, Negative for altered mental status, dizziness, numbness, weakness. 11:05 All other systems are negative. Exam: 11:10 Constitutional: The patient appears in no acute distress, alert, awake, cp non-diaphoretic, non-toxic, well developed, well nourished. 11:10 Head/Face: Normocephalic, atraumatic. cp 11:10 Eyes: Periorbital structures: appear normal, Pupils: equal, round, and reactive to light and accomodation, Extraocular movements: intact throughout, Conjunctiva: normal, no exudate, no injection, Sclera: no appreciated abnormality, Lids and lashes: appear normal, bilaterally. 11:10 ENT: External ear(s): are unremarkable, Ear canal(s): are normal, clear, TM's: dullness, bilaterally, Nose: is normal, Mouth: Lips: moist, Oral mucosa: pink and intact, moist, Posterior pharynx: Airway: no evidence of obstruction, patent, swelling, is not appreciated, erythema, is not appreciated, exudate, is not appreciated. 11:10 Neck: ROM/movement: is normal, is supple, without pain, no range of motions limitations, no meningismus, no nuchal rigidity. 11:10 Chest/axilla: Inspection: normal. 11:10 Cardiovascular: Rate: normal, Rhythm: regular. 11:10 Respiratory: the patient does not display signs of respiratory distress, Respirations: normal, no use of accessory muscles, no retractions, labored breathing, is not present, Breath sounds: are clear throughout, no decreased breath sounds, no stridor, no wheezing. 11:10 Abdomen/GI: Inspection: abdomen appears normal, Palpation: abdomen is soft and non-tender, in all quadrants. 11:10 Neuro: Orientation: to person, place \T\ time. Mentation: is normal, Motor: moves all fours, strength is normal, Sensation: no obvious gross deficits, Gait: is steady, at a normal pace, without difficulty. Vital Signs: 10:48 Pulse 69; Resp 17; Pulse Ox 98% on R/A; Weight 70.31 kg; Height 5 ft. 7 in. (170.18 cm);ap3 10:48 BP 157 / 86; ap3 11:45 BP 154 / 85; Pulse 70; Pulse Ox 99% on R/A; ko1 10:48 Body Mass Index 24.28 (70.31 kg, 170.18 cm) ap3 MDM: 10:53 Patient medically screened. cp 11:00 Differential diagnosis: hypertensive headache, hyponatremia, meningitis, cp meningoencephalitis, migraine, sinusitis, subarachnoid bleed, subdural hematoma, temporal arteritis, tension headache. 12:10 Data reviewed: vital signs, nurses notes, lab test result(s), radiologic studies, CT cp scan. 12:10 Counseling: I had a detailed discussion with the patient and/or guardian regarding: the cp historical points, exam findings, and any diagnostic results supporting the discharge/admit diagnosis, lab results, radiology results, to return to the emergency department if symptoms worsen or persist or if there are any questions or concerns that arise at home. Response to treatment: the patient's symptoms have mildly improved after treatment. ED course: VSS. Patient declined to have blood work at this time. Requests tylenol for headache and discharge to home. Patient instructed she can return at any time for reevaluation. 02/20 10:54 Order name: COVID-19/FLU A+B; Complete Time: 12:00 02/20 12:00 Interpretation: Reviewed. 02/20 10:56 Order name: Urine Microscopic Only; Complete Time: 12:00 02/20 12:00 Interpretation: Normal except: URBC 5-10. 02/20 10:56 Order name: EKG; Complete Time: 10:57 02/20 10:56 Order name: EKG - Nurse/Tech 02/20 10:56 Order name: CT Head Brain wo Cont; Complete Time: 11:19 02/20 10:56 Order name: UDS; Complete Time: 00:59 02/20 11:08 Order name: Urine Dipstick-Ancillary; Complete Time: 11:19 EDMS 02/20 10:56 Order name: IV; Complete Time: 11:15 02/20 10:56 Order name: Urine Dipstick-Ancillary (obtain specimen); Complete Time: 11:02 02/20 11:37 Order name: Misc. Order: Recollect CBC and Basic jl7 Administered Medications: 11:38 Drug: Reglan (metoCLOPramide) 10 mg Route: IVP; Site: left antecubital; ko1 12:15 Not Given (Patient Refused): Ativan (LORazepam) 0.5 mg IVP once ko1 12:15 Not Given (patient removed iv, refused another onee): Dexamethasone 10 mg IVP once; ko1 (not to exceed 40 mg) Disposition Summary: 02/20/22 12:10 Discharge Ordered Location: Home cp Problem: new cp Symptoms: have improved cp Condition: Stable cp Diagnosis - Headache cp - Nausea with vomiting, unspecified cp Followup: cp - With: Private Physician - When: 1 - 2 days - Reason: Recheck today's complaints Discharge Instructions: - Discharge Summary Sheet cp - General Headache Without Cause cp - Nausea and Vomiting, Adult cp Forms: - Medication Reconciliation Form cp - Thank You Letter cp - Antibiotic Education cp - Prescription Opioid Use cp Prescriptions: - Zofran 4 mg Oral Tablet - take 1 tablet by ORAL route every 12 hours As needed; 20 tablet; Refills: 0, cp Product Selection Permitted Signatures: Dispatcher [employer] EDMS Diego Ang PA PA cp Arianna Jackson RN RN jl7 Elisa Gutierrez RN RN ap3 Vy Cortez RN RN ko1 Corrections: (The following items were deleted from the chart) 02/21 01:02 02/20 11:00 Onset: The symptoms/episode began/occurred this morning, cp cp
[2022-02-20 12:48] VITALS: BP 154/85; O2SAT 99
--- NOTE | 2022-02-21 12:55 | EKG ---
Test Date: 2022-02-20 Test Time: 11:30:47 Plant Attendant: RICARDO MEASUREMENT RESULTS: Intervals: Rate: 48 CA: 172 QRSD: 90 QT: 490 QTc: 437 [place]: P: 64 CA: 172 QRS: 81 T: 68 INTERPRETIVE STATEMENTS: Sinus bradycardia Otherwise normal ECG Compared to ECG 02/08/2022 15:33:15 T-wave abnormality no longer present Electronically Signed On 02-21-22 12:52:08 RISK ASSESSMENT CONSULTANT by Brian Booker
== END 2022-02-20 12:29 | disposition home or self-care (01) ==
LOC: ER 10:43
DX: R51.9 Headache, unspecified (principal); R11.2 Nausea with vomiting, unspecified; F10.20 Alcohol dependence, uncomplicated; I10 Essential (primary) hypertension; F17.210 Nicotine dependence, cigarettes, uncomplicated; Z20.822 Contact with and (suspected) exposure to COVID-19
CPT/HCPCS: 93005; 0240U; 80307; 70450; 96374; 99284; J2765; J1100; 81003; 81015

== ENCOUNTER 2022-02-22 12:03 | Emergency (ER) | payer OTHER ==
--- OUTSIDE RECORDS SUMMARY | 2022-02-22 12:16 | XMS REPORT | Continuity of Care Document ---
:1960 Author Organization [facility] t Address [address] [place] [address] Care Team Providers Name Role Phone Jacinda George Primary Care Physician [phone] MATT SIMPSON Attending Clinician Unavailable MATT SIMPSON Attending Clinician Unavailable Doctor Unassigned, [place] Attending Clinician Unavailable WALLY KRISHNAMURTHY Attending Clinician Unavailable Natacha Brewster Attending Clinician Payers Payer Name Policy Type Policy Number Effective Date Expiration Date Sarina castelan [facility] JESSICA [id number] 2017 00:00:00 PLUS Problems This patient has [...] s TRANSDER 5-21 ity of MAL 00:00: [place] 00 [facility] ACETAMIN DRUG Active Other-Cmnt Univ ers OPHEN INGREDI 07-27 ity of 00:00: [place] 00 [facility] Hmg-Coa Propensi Inactiv Reductas [...] Goal Plan of Care Note [code = 99707-2] Goal Plan of Care Note [code = 39593-2] Goal Plan of Care Note [code = 30021-2] Goal Plan of Care Note [code = 55070-9] Goal Plan of Care Note [code = 21757-6] Goal Plan of Care Note [code = 63869-0] Goal Plan of Care Note [code = 47989-9] Goal Plan of Care Note [code = 82062-4] Goal Plan of Care Note [code = 91334-0] Goal Plan of Care Note [code = 61945-2] Goal Plan of Care Note [code = 72141-5] Goal Plan of Care Note [code = 89386-6] Goal Plan of Care Note [code = 36547-1] Goal Plan of Care Note [code = 47785-3] Goal Plan of Care Note [code = 95253-6] Goal Plan of Care Note [code = 06704-8] Goal Plan of Care Note [code = 12225-9] Goal Plan of Care Note [code = 15699-7] Goal Plan of Care Note [code = 67940-1] Goal Plan of Care Note [code = 42648-8] Goal Plan of Care Note [code = 36491-9] Goal Plan of Care Note [code = 77707-4] Goal Plan of Care Note [code = 08651-1] Goal Plan of Care Note [code = 96783-2] Goal Plan of Care Note [code = 49040-0] Goal Plan of Care Note [code = 02993-4] Goal Plan of Care Note [code = 08463-1] Goal Plan of Care Note [code = 08494-0] Goal Plan of Care Note [code = 30740-9] Goal Plan of Care Note [code = 96615-4] Goal Plan of Care Note [code = 30662-1] Goal Plan of Care Note [code = 29145-2] Goal Plan of Care Note [code = 99716-1] Goal Plan of Care Note [code = 95822-7] Goal Plan of Care Note [code = 84778-7] Goal Plan of Care Note [code = 21821-6] Goal Plan of Care Note [code = 75949-2] Goal Plan of Care Note [code = 21342-6] Goal Plan of Care Note [code = 39722-5] Goal Plan of Care Note [code = 04664-8] Goal Plan of Care Note [code = 70934-2] Goal Plan of Care Note [code = 61030-8] Goal Plan of Care Note [code = 79674-8] Goal Plan of Care Note [code = 84082-8] Goal Plan of Care Note [code = 65205-9] Goal Plan of Care Note [code = 74095-5] Goal Plan of Care Note [code = 25564-5] Goal Plan of Care Note [code = 72774-6] Goal Plan of Care Note [code = 51282-2] Goal Plan of Care Note [code = 26781-5] Goal Plan of Care Note [code = 19020-6] Goal Plan of Care Note [code = 52130-7] Goal Plan of Care Note [code = 63115-0] Goal Plan of Care Note [code = 34209-8] Goal Plan of Care Note [code = 33575-6] Goal Plan of Care Note [code = 72929-9] Goal Plan of Care Note [code = 40059-8] Goal Plan of Care Note [code = 45245-2] Goal Plan of Care Note [code = 86251-3] Goal Plan of Care Note [code = 41515-4] Goal Plan of Care Note [code = 02450-4] Goal Plan of Care Note [code = 05473-9] Goal Plan of Care Note [code = 81184-5] Goal Plan of Care Note [code = 46007-1] Goal Plan of Care Note [code = 62986-1] Goal Plan of Care Note [code = 26907-6] Goal Plan of Care Note [code = 55215-7] Goal Plan of Care Note [code = 46580-7] Goal Plan of Care Note [code = 63165-6] Goal Plan of Care Note [code = 68066-6] Goal Plan of Care Note [code = 67054-9] Goal Plan of Care Note [code = 63533-5] Goal Plan of Care Note [code = 37546-3] Goal Plan of Care Note [code = 95457-8] Goal Plan of Care Note [code = 62159-7] Goal Plan of Care Note [code = 13322-3] Goal Plan of Care Note [code = 12939-0] Goal Plan of Care Note [code = 52708-5] Goal Plan of Care Note [code = 06602-6] Goal Plan of Care Note [code = 88349-7] Goal Plan of Care Note [code = 19394-0] Goal Plan of Care Note [code = 69875-5] Goal Plan of Care Note [code = 20435-0] Goal Plan of Care Note [code = 54330-9] Goal Plan of Care Note [code = 84802-4] Goal Plan of Care Note [code = 06029-4] Goal Plan of Care Note [code = 54165-8] Goal Plan of Care Note [code = 91196-0] Goal Plan of Care Note [code = 71274-6] Goal Plan of Care Note [code = 89874-1] Goal Plan of Care Note [code = 33176-9] Goal Plan of Care Note [code = 71266-1] Goal Plan of Care Note [code = 58355-4] Goal Plan of Care Note [code = 02168-8] Goal Plan of Care Note [code = 67662-5] Goal Plan of Care Note [code = 91398-3] Goal Plan of Care Note [code = 27872-9] Goal Plan of Care Note [code = 42112-4] Goal Plan of Care Note [code = 94855-6] Goal Plan of Care Note [code = 64081-5] Goal Plan of Care Note [code = 83289-3] Goal Plan of Care Note [code = 25615-9] Goal Plan of Care Note [code = 64155-7] Goal Plan of Care Note [code = 40806-9] Goal Plan of Care Note [code = 08488-3] Goal Plan of Care Note [code = 38503-2] Goal Plan of Care Note [code = 50520-7] Goal Plan of Care Note [code = 34219-1] Goal Plan of Care Note [code = 24452-4] Goal Plan of Care Note [code = 06354-4] Goal Plan of Care Note [code = 14050-0] Goal Plan of Care Note [code = 91162-3] Goal Plan of Care Note [code = 09938-8] Goal Plan of Care Note [code = 27817-6] Goal Plan of Care Note [code = 23994-1] Goal Plan of Care Note [code = 64573-9] Goal Plan of Care Note [code = 85238-9] Goal Plan of Care Note [code = 27691-7] Goal Plan of Care Note [code = 62553-8] Goal Plan of Care Note [code = 38956-0] Goal Plan of Care Note [code = 12173-8] Goal Plan of Care Note [code = 10391-3] Goal Plan of Care Note [code = 65388-5] Goal Plan of Care Note [code = 11386-8] Goal Plan of Care Note [code = 19773-2] Goal Plan of Care Note [code = 34538-9] Goal Plan of Care Note [code = 92625-8] Goal Plan of Care Note [code = 80468-6] Goal Plan of Care Note [code = 01057-4] Goal Plan of Care Note [code = 52056-4] Goal Plan of Care Note [code = 50316-3] Goal Plan of Care Note [code = 32284-5] Goal Plan of Care Note [code = 91380-5] Goal Plan of Care Note [code = 50996-5] Goal Plan of Care Note [code = 97654-7] Goal Plan of Care Note [code = 08501-3] Goal Plan of Care Note [code = 03236-7] Goal Plan of Care Note [code = 67107-0] Goal Plan of Care Note [code = 07358-3] Goal Plan of Care Note [code = 75610-2] Goal Plan of Care Note [code = 02103-9] Goal Plan of Care Note [code = 07612-0] Goal Plan of Care Note [code = 03982-4] Goal Plan of Care Note [code = 55593-1] Goal Plan of Care Note [code = 75157-8] Goal Plan of Care Note [code = 85677-5] Goal Plan of Care Note [code = 76617-7] Goal Plan of Care Note [code = 52174-3] Goal Plan of Care Note [code = 36826-5] Goal Plan of Care Note [code = 55637-3] Goal Plan of Care Note [code = 16106-3] Goal Plan of Care Note [code = 00098-1] Goal Plan of Care Note [code = 75014-2] Goal Plan of Care Note [code = 94987-3] Goal Plan of Care Note [code = 64838-6] Goal Plan of Care Note [code = 38812-6] Goal Plan of Care Note [code = 99102-9] Goal Plan of Care Note [code = 82873-2] Goal Plan of Care Note [code = 73379-7] Goal Plan of Care Note [code = 30192-8] Goal Plan of Care Note [code = 23508-6] Goal Plan of Care Note [code = 30186-4] Goal Plan of Care Note [code = 23004-7] Goal Plan of Care Note [code = 85953-2] Goal Plan of Care Note [code = 41265-9] Goal Plan of Care Note [code = 68701-1] Goal Plan of Care Note [code = 59641-9] Goal Plan of Care Note [code = 99282-0] Goal Plan of Care Note [code = 74602-5] Goal Plan of Care Note [code = 06683-1] Goal Plan of Care Note [code = 51780-8] Goal Plan of Care Note [code = 83037-7] Goal Plan of Care Note [code = 69741-4] Goal Plan of Care Note [code = 00897-7] Goal Plan of Care Note [code = 66487-1] Goal Plan of Care Note [code = 80980-2] Goal Plan of Care Note [code = 81096-5] Goal Plan of Care Note [code = 23009-1] Goal Plan of Care Note [code = 50615-9] Goal Plan of Care Note [code = 42232-0] Goal Plan of Care Note [code = 41215-7] Goal Plan of Care Note [code = 55455-0] Goal Plan of Care Note [code = 16755-0] Goal Plan of Care Note [code = 29711-6] Goal Plan of Care Note [code = 06406-5] Goal Plan of Care Note [code = 41006-9] Goal Plan of Care Note [code = 70921-4] Goal Plan of Care Note [code = 17218-7] Goal Plan of Care Note [code = 74146-9] Goal Plan of Care Note [code = 17630-2] Goal Plan of Care Note [code = 07847-9] Goal Plan of Care Note [code = 87959-0] Goal Plan of Care Note [code = 49647-5] Goal Plan of Care Note [code = 02439-6] Goal Plan of Care Note [code = 10593-7] Goal Plan of Care Note [code = 98180-7] Goal Plan of Care Note [code = 94996-0] Goal Plan of Care Note [code = 55895-3] Goal Plan of Care Note [code = 54659-3] Goal Plan of Care Note [code = 82528-6] Goal Plan of Care Note [code = 66493-6] Goal Plan of Care Note [code = 16101-9] Goal Plan of Care Note [code = 49121-7] Goal Plan of Care Note [code = 81768-2] Goal Plan of Care Note [code = 13597-3] Goal Plan of Care Note [code = 31665-0] Goal Plan of Care Note [code = 32356-1] Goal Plan of Care Note [code = 86891-6] Encounters Start End Encounter Admission Attending Care Care Encounter Source Date/Time Date/Time Type Type Clinicians Facility Department ID 2022-02-11 2022-02-11 Outpatient SFA LYDIA [id number] 022 Cristian 09:04:48 09:04:48 1206 F Jerman 2022-02-10 2022-02-10 Outpatient SFA SFA 68440-4 022 Cristian 09:29:34 09:29:34 1205 F Jerman 2022-02-10 2022-02-10 Outpatient [id number]- [id number] 8w76p0-0 00:00:00 00:00:00 Visit 4089-4cab 089-4cab-9 -0xc4-z4d bf5-w4h050 373qhux80 bafa93 2022-01-10 2022-01-10 Outpatient SFA SFA 56259-2 022 Cristian 09:16:14 09:16:14 1104 F Jerman 2022-01-10 2022-01-10 Outpatient i4vpdwo7- [id number] f2 accaa6-a 00:00:00 00:00:00 Visit aca9-4c83 ca9-4c83-a -b0mx-wc6 7eb-bc13f3 1w7s539v1 f032f9 2021-12-19 2021-12-[address] [facility] [id number] Cristian 16:11:31 16:11:31 1013 F Jerman 2021-12-19 2021-12-19 Outpatient [id number] 466cae-a 00:00:00 00:00:00 Visit f407-979i 770-441f-a -adae-62b amelia-62bace nydfk46qw fd81af 2021-09-17 2021-09-17 Outpatient oqr8npvp- [id number] aa s1ppei-8 00:00:00 00:00:00 Visit 935a-4f50 35a-4f50-b -r98k-i7j 77d-c2ba85 v320977a5 1264a6 2020-08-03 2020-08-03 Outpatient [facility] [id number] Univers 10:00:00 10:00:00 MATT SIMPSON pat [facility] 2020-07-25 2020-07-25 Orders Doctor FISH [id number] 00:00:00 00:00:00 Only Unassigned, BK 350.1.13.10 [place] [facility] 4.2.7.2.686 [id number] 2019-09-26 2019-09-26 Outpatient R R[facility] [id number] Univers 16:00:00 16:00:00 WALLY yeager [facility] 2018-10-21 2018-10-21 Telephone Gramm, [facility] [id number] 00:00:00 00:00:00 Natacha Nguyen 350.1.13.10 Ade 4.2.7.2.686 [place] [id number] [facility] [address] Building Results Test Description Test Time Test Comments Results Result Comments Source TSH, THIRD GENERATION 2021-06-27 05:15:49 Test Item Value Reference Range Interpretation Comme nts TSH, THIRD GENERATION (test code = 2821) 2.080 UIU/ML 0.400-4.100 HEMOGLOBIN [id number] 03:46:00 Test Item Value Reference Range Interpretation Comments HEMOGLOBIN A1c (test 6.6 % 4.2-5.6 H AMERIC AN DIABETES code = 47006) ASSOCIATION IDELINES FOR HGB A1C: PREDIABETES/INC REASED [...] INDICATED, ALL TESTING PER FORMED ATCLINICAL PATH [facility], I MD. [address] [place] [address] 3308 LABORATORY DIRE CTOR: DIANA RUSS M.D. CLIA NUMBER [id number] [place] [id number] LIPID [id number] 02:59:52 Test Item Value Reference Range Interpretation [...] MOREINFORMATION , SEE CLIENT ANNOUNCE MENT AT [email or web address] RISK RATIO LDL/HDL 4.02 RATIO <3.22 H (test code = 2238) [id number] 00:00:00 Test Item Value Reference Range Interpretation Comments TSH, THIRD GENERATION (test code 2.080 UIU/ML = 2821) [id number] 00:00:00 Test Item Value Reference Range Interpretation Comments TSH, THIRD GENERATION (test code 2.080 UIU/ML = 2821) [id number] 00:00:00 Test Item Value Reference Range Interpretation Comments TSH, THIRD GENERATION (test code 2.080 UIU/ML = 2821) LIPID [id number] 00:00:00 Test Item Value Reference Range Interpretation Comments CHOLESTEROL (test code = 2210) 292 MG/DL TRIGLYCERIDES (test code = 2232) 184 MG/DL HDL CHOLESTEROL (test code = 2220) 51 MG/DL CALC LDL CHOL (test code = 2237) 205 MG/DL RISK RATIO LDL/HDL (test code = 4.02 RATIO 2238) LIPID [id number] 00:00:00 Test Item Value Reference Range Interpretation Comments CHOLESTEROL (test code = 2210) 292 MG/DL TRIGLYCERIDES (test code = 2232) 184 MG/DL HDL CHOLESTEROL (test code = 2220) 51 MG/DL CALC LDL CHOL (test code = 2237) 205 MG/DL RISK RATIO LDL/HDL (test code = 4.02 RATIO 2238) HEMOGLOBIN [id number] 00:00:00 Test Item Value Reference Range Interpretation Comments HEMOGLOBIN A1c (test code = 03292) 6.6 % HEMOGLOBIN [id number] 00:00:00 Test Item Value Reference Range Interpretation Comments HEMOGLOBIN A1c (test code = 71433) 6.6 % HEMOGLOBIN [id number] 00:00:00 Test Item Value Reference Range Interpretation Comments HEMOGLOBIN A1c (test code = 67027) 6.6 % [id number] 00:00:00 Test Item Value Reference Range Interpretation Comments TSH, THIRD GENERATION (test code 2.080 UIU/ML = 2821) [id number] 00:00:00 Test Item Value Reference Range Interpretation Comments TSH, THIRD GENERATION (test code 2.080 UIU/ML = 2821) [id number] 00:00:00 Test Item Value Reference Range Interpretation Comments TSH, THIRD GENERATION (test code 2.080 UIU/ML = 2821) LIPID [id number] 00:00:00 Test Item Value Reference Range Interpretation Comments CHOLESTEROL (test code = 2210) 292 MG/DL TRIGLYCERIDES (test code = 2232) 184 MG/DL HDL CHOLESTEROL (test code = 2220) 51 MG/DL CALC LDL CHOL (test code = 2237) 205 MG/DL RISK RATIO LDL/HDL (test code = 4.02 RATIO 2238) LIPID [id number] 00:00:00 Test Item Value Reference Range Interpretation Comments CHOLESTEROL (test code = 2210) 292 MG/DL TRIGLYCERIDES (test code = 2232) 184 MG/DL HDL CHOLESTEROL (test code = 2220) 51 MG/DL CALC LDL CHOL (test code = 2237) 205 MG/DL RISK RATIO LDL/HDL (test code = 4.02 RATIO 2238) HEMOGLOBIN [id number] 00:00:00 Test Item Value Reference Range Interpretation Comments HEMOGLOBIN A1c (test code = 89547) 6.6 % HEMOGLOBIN [id number] 00:00:00 Test Item Value Reference Range Interpretation Comments HEMOGLOBIN A1c (test code = 62611) 6.6 % HEMOGLOBIN [id number] 00:00:00 Test Item Value Reference Range Interpretation Comments HEMOGLOBIN A1c (test code = 04987) 6.6 % [id number] 00:00:00 Test Item Value Reference Range Interpretation Comments TSH, THIRD GENERATION (test code 2.080 UIU/ML = 2821) [id number] 00:00:00 Test Item Value Reference Range Interpretation Comments TSH, THIRD GENERATION (test code 2.080 UIU/ML = 2821) LIPID [id number] 00:00:00 Test Item Value Reference Range Interpretation Comments CHOLESTEROL (test code = 2210) 292 MG/DL TRIGLYCERIDES (test code = 2232) 184 MG/DL HDL CHOLESTEROL (test code = 2220) 51 MG/DL CALC LDL CHOL (test code = 2237) 205 MG/DL RISK RATIO LDL/HDL (test code = 4.02 RATIO 2238) HEMOGLOBIN [id number] 00:00:00 Test Item Value Reference Range Interpretation Comments HEMOGLOBIN A1c (test code = 98332) 6.6 % HEMOGLOBIN [id number] 00:00:00 Test Item Value Reference Range Interpretation Comments HEMOGLOBIN A1c (test code = 68732) 6.6 % [id number] 00:00:00 Test Item Value Reference Range Interpretation Comments TSH, THIRD GENERATION (test code 2.080 UIU/ML = 2821) [id number] 00:00:00 Test Item Value Reference Range Interpretation Comments TSH, THIRD GENERATION (test code 2.080 UIU/ML = 2821) [id number] 00:00:00 Test Item Value Reference Range Interpretation Comments TSH, THIRD GENERATION (test code 2.080 UIU/ML = 2821) LIPID [id number] 00:00:00 Test Item Value Reference Range Interpretation Comments CHOLESTEROL (test code = 2210) 292 MG/DL TRIGLYCERIDES (test code = 2232) 184 MG/DL HDL CHOLESTEROL (test code = 2220) 51 MG/DL CALC LDL CHOL (test code = 2237) 205 MG/DL RISK RATIO LDL/HDL (test code = 4.02 RATIO 2238) LIPID [id number] 00:00:00 Test Item Value Reference Range Interpretation Comments CHOLESTEROL (test code = 2210) 292 MG/DL TRIGLYCERIDES (test code = 2232) 184 MG/DL HDL CHOLESTEROL (test code = 2220) 51 MG/DL CALC LDL CHOL (test code = 2237) 205 MG/DL RISK RATIO LDL/HDL (test code = 4.02 RATIO 2238) HEMOGLOBIN [id number] 00:00:00 Test Item Value Reference Range Interpretation Comments HEMOGLOBIN A1c (test code = 03549) 6.6 % HEMOGLOBIN [id number] 00:00:00 Test Item Value Reference Range Interpretation Comments HEMOGLOBIN A1c (test code = 44453) 6.6 % HEMOGLOBIN [id number] 00:00:00 Test Item Value Reference Range Interpretation Comments HEMOGLOBIN A1c (test code = 56837) 6.6 % HEMOGLOBIN [id number] 00:00:00 Test Item Value Reference Range Interpretation Comments HEMOGLOBIN A1c (test code = 27477) 6.8 % HEMOGLOBIN [id number] 00:00:00 Test Item Value Reference Range Interpretation Comments HEMOGLOBIN A1c (test code = 98485) 6.8 % HEMOGLOBIN [id number] 00:00:00 Test Item Value Reference Range Interpretation Comments HEMOGLOBIN A1c (test code = 73238) 6.8 % LIPID [id number] 00:00:00 Test Item Value Reference Range Interpretation Comments CHOLESTEROL (test code = 2210) 303 MG/DL TRIGLYCERIDES (test code = 2232) 191 MG/DL HDL CHOLESTEROL (test code = 2220) 61 MG/DL CALC LDL CHOL (test code = 2237) 205 MG/DL RISK RATIO LDL/HDL (test code = 3.36 RATIO 2238) LIPID [id number] 00:00:00 Test Item Value Reference Range Interpretation Comments CHOLESTEROL (test code = 2210) 303 MG/DL TRIGLYCERIDES (test code = 2232) 191 MG/DL HDL CHOLESTEROL (test code = 2220) 61 MG/DL CALC LDL CHOL (test code = 2237) 205 MG/DL RISK RATIO LDL/HDL (test code = 3.36 RATIO 2238) [id number] 00:00:00 Test Item Value Reference Range Interpretation Comments TSH, THIRD GENERATION (test code 0.769 UIU/ML = 2821) [id number] 00:00:00 Test Item Value Reference Range Interpretation Comments TSH, THIRD GENERATION (test code 0.769 UIU/ML = 2821) [id number] 00:00:00 Test Item Value Reference Range Interpretation Comments TSH, THIRD GENERATION (test code 0.769 UIU/ML = 2821) COMPREHENSIVE METABOLIC [id number] 00:00:00 Test Item Value Reference Range Interpretation Comments GLUCOSE (test code = 2217) 131 MG/DL BUN (test code = 2208) 13 MG/DL CREATININE (test code = 2214) 0.65 MG/DL eGFR AMER. (test code 113 ML/MIN/1.73 = 43927) eGFR NON- AMER. (test 97 ML/MIN/1.73 code = 37517) CALC BUN/CREAT (test code = 20 RATIO [...] code = 2219) 23 U/L COMPREHENSIVE METABOLIC [id number] 00:00:00 Test Item Value Reference Range Interpretation Comments GLUCOSE (test code = 2217) 131 MG/DL BUN (test code = 2208) 13 MG/DL CREATININE (test code = 2214) 0.65 MG/DL eGFR AMER. (test code 113 ML/MIN/1.73 = 74239) eGFR NON- AMER. (test 97 ML/MIN/1.73 code = 03385) CALC BUN/CREAT (test code = 20 RATIO [...] (test code = 2219) 23 U/L HEMOGLOBIN [id number] 00:00:00 Test Item Value Reference Range Interpretation Comments HEMOGLOBIN A1c (test code = 98240) 6.8 % HEMOGLOBIN [id number] 00:00:00 Test Item Value Reference Range Interpretation Comments HEMOGLOBIN A1c (test code = 53730) 6.8 % HEMOGLOBIN [id number] 00:00:00 Test Item Value Reference Range Interpretation Comments HEMOGLOBIN A1c (test code = 15738) 6.8 % LIPID [id number] 00:00:00 Test Item Value Reference Range Interpretation Comments CHOLESTEROL (test code = 2210) 303 MG/DL TRIGLYCERIDES (test code = 2232) 191 MG/DL HDL CHOLESTEROL (test code = 2220) 61 MG/DL CALC LDL CHOL (test code = 2237) 205 MG/DL RISK RATIO LDL/HDL (test code = 3.36 RATIO 2238) LIPID [id number] 00:00:00 Test Item Value Reference Range Interpretation Comments CHOLESTEROL (test code = 2210) 303 MG/DL TRIGLYCERIDES (test code = 2232) 191 MG/DL HDL CHOLESTEROL (test code = 2220) 61 MG/DL CALC LDL CHOL (test code = 2237) 205 MG/DL RISK RATIO LDL/HDL (test code = 3.36 RATIO 2238) [id number] 00:00:00 Test Item Value Reference Range Interpretation Comments TSH, THIRD GENERATION (test code 0.769 UIU/ML = 2821) [id number] 00:00:00 Test Item Value Reference Range Interpretation Comments TSH, THIRD GENERATION (test code 0.769 UIU/ML = 2821) [id number] 00:00:00 Test Item Value Reference Range Interpretation Comments TSH, THIRD GENERATION (test code 0.769 UIU/ML = 2821) COMPREHENSIVE METABOLIC [id number] 00:00:00 Test Item Value Reference Range Interpretation Comments GLUCOSE (test code = 2217) 131 MG/DL BUN (test code = 2208) 13 MG/DL CREATININE (test code = 2214) 0.65 MG/DL eGFR AMER. (test code 113 ML/MIN/1.73 = 25477) eGFR NON- AMER. (test 97 ML/MIN/1.73 code = 53865) CALC BUN/CREAT (test code = 20 RATIO [...] code = 2219) 23 U/L COMPREHENSIVE METABOLIC [id number] 00:00:00 Test Item Value Reference Range Interpretation Comments GLUCOSE (test code = 2217) 131 MG/DL BUN (test code = 2208) 13 MG/DL CREATININE (test code = 2214) 0.65 MG/DL eGFR AMER. (test code 113 ML/MIN/1.73 = 77958) eGFR NON- AMER. (test 97 ML/MIN/1.73 code = 80834) CALC BUN/CREAT (test code = 20 RATIO [...] (test code = 2219) 23 U/L HEMOGLOBIN [id number] 00:00:00 Test Item Value Reference Range Interpretation Comments HEMOGLOBIN A1c (test code = 89815) 6.8 % HEMOGLOBIN [id number] 00:00:00 Test Item Value Reference Range Interpretation Comments HEMOGLOBIN A1c (test code = 82088) 6.8 % LIPID [id number] 00:00:00 Test Item Value Reference Range Interpretation Comments CHOLESTEROL (test code = 2210) 303 MG/DL TRIGLYCERIDES (test code = 2232) 191 MG/DL HDL CHOLESTEROL (test code = 2220) 61 MG/DL CALC LDL CHOL (test code = 2237) 205 MG/DL RISK RATIO LDL/HDL (test code = 3.36 RATIO 2238) [id number] 00:00:00 Test Item Value Reference Range Interpretation Comments TSH, THIRD GENERATION (test code 0.769 UIU/ML = 2821) [id number] 00:00:00 Test Item Value Reference Range Interpretation Comments TSH, THIRD GENERATION (test code 0.769 UIU/ML = 2821) COMPREHENSIVE METABOLIC [id number] 00:00:00 Test Item Value Reference Range Interpretation Comments GLUCOSE (test code = 2217) 131 MG/DL BUN (test code = 2208) 13 MG/DL CREATININE (test code = 2214) 0.65 MG/DL eGFR AMER. (test code 113 ML/MIN/1.73 = 78346) eGFR NON- AMER. (test 97 ML/MIN/1.73 code = 03032) CALC BUN/CREAT (test code = 20 RATIO [...] (test code = 2219) 23 U/L HEMOGLOBIN [id number] 00:00:00 Test Item Value Reference Range Interpretation Comments HEMOGLOBIN A1c (test code = 29020) 6.8 % HEMOGLOBIN [id number] 00:00:00 Test Item Value Reference Range Interpretation Comments HEMOGLOBIN A1c (test code = 85049) 6.8 % HEMOGLOBIN [id number] 00:00:00 Test Item Value Reference Range Interpretation Comments HEMOGLOBIN A1c (test code = 49607) 6.8 % LIPID [id number] 00:00:00 Test Item Value Reference Range Interpretation Comments CHOLESTEROL (test code = 2210) 303 MG/DL TRIGLYCERIDES (test code = 2232) 191 MG/DL HDL CHOLESTEROL (test code = 2220) 61 MG/DL CALC LDL CHOL (test code = 2237) 205 MG/DL RISK RATIO LDL/HDL (test code = 3.36 RATIO 2238) LIPID [id number] 00:00:00 Test Item Value Reference Range Interpretation Comments CHOLESTEROL (test code = 2210) 303 MG/DL TRIGLYCERIDES (test code = 2232) 191 MG/DL HDL CHOLESTEROL (test code = 2220) 61 MG/DL CALC LDL CHOL (test code = 2237) 205 MG/DL RISK RATIO LDL/HDL (test code = 3.36 RATIO 2238) [id number] 00:00:00 Test Item Value Reference Range Interpretation Comments TSH, THIRD GENERATION (test code 0.769 UIU/ML = 2821) [id number] 00:00:00 Test Item Value Reference Range Interpretation Comments TSH, THIRD GENERATION (test code 0.769 UIU/ML = 2821) [id number] 00:00:00 Test Item Value Reference Range Interpretation Comments TSH, THIRD GENERATION (test code 0.769 UIU/ML = 2821) COMPREHENSIVE METABOLIC [id number] 00:00:00 Test Item Value Reference Range Interpretation Comments GLUCOSE (test code = 2217) 131 MG/DL BUN (test code = 2208) 13 MG/DL CREATININE (test code = 2214) 0.65 MG/DL eGFR AMER. (test code 113 ML/MIN/1.73 = 40976) eGFR NON- AMER. (test 97 ML/MIN/1.73 code = 43589) CALC BUN/CREAT (test code = 20 RATIO [...] code = 2219) 23 U/L COMPREHENSIVE METABOLIC [id number] 00:00:00 Test Item Value Reference Range Interpretation Comments GLUCOSE (test code = 2217) 131 MG/DL BUN (test code = 2208) 13 MG/DL CREATININE (test code = 2214) 0.65 MG/DL eGFR AMER. (test code 113 ML/MIN/1.73 = 47589) eGFR NON- AMER. (test 97 ML/MIN/1.73 code = 61330) CALC BUN/CREAT (test code = 20 RATIO [...] (test code = 2219) 23 U/L HEMOGLOBIN [id number] 00:00:00 Test Item Value Reference Range Interpretation Comments HEMOGLOBIN A1c (test code = 76344) 6.6 % HEMOGLOBIN [id number] 00:00:00 Test Item Value Reference Range Interpretation Comments HEMOGLOBIN A1c (test code = 95529) 6.6 % HEMOGLOBIN [id number] 00:00:00 Test Item Value Reference Range Interpretation Comments HEMOGLOBIN A1c (test code = 43566) 6.6 % LIPID [id number] 00:00:00 Test Item Value Reference Range Interpretation Comments CHOLESTEROL (test code = 2210) 261 MG/DL TRIGLYCERIDES (test code = 2232) 159 MG/DL HDL CHOLESTEROL (test code = 2220) 82 MG/DL CALC LDL CHOL (test code = 2237) 150 MG/DL RISK RATIO LDL/HDL (test code = 1.83 RATIO 2238) LIPID [id number] 00:00:00 Test Item Value Reference Range Interpretation Comments CHOLESTEROL (test code = 2210) 261 MG/DL TRIGLYCERIDES (test code = 2232) 159 MG/DL HDL CHOLESTEROL (test code = 2220) 82 MG/DL CALC LDL CHOL (test code = 2237) 150 MG/DL RISK RATIO LDL/HDL (test code = 1.83 RATIO 2238) COMPREHENSIVE METABOLIC [id number] 00:00:00 Test Item Value Reference Range Interpretation Comments GLUCOSE (test code = 2217) 144 MG/DL BUN (test code = 2208) 15 MG/DL CREATININE (test code = 2214) 0.85 MG/DL eGFR AMER. (test code 87 ML/MIN/1.73 = 36100) eGFR NON- AMER. (test 75 ML/MIN/1.73 code = 88888) CALC BUN/CREAT (test code = 18 RATIO [...] code = 2219) 50 U/L COMPREHENSIVE METABOLIC [id number] 00:00:00 Test Item Value Reference Range Interpretation Comments GLUCOSE (test code = 2217) 144 MG/DL BUN (test code = 2208) 15 MG/DL CREATININE (test code = 2214) 0.85 MG/DL eGFR AMER. (test code 87 ML/MIN/1.73 = 58889) eGFR NON- AMER. (test 75 ML/MIN/1.73 code = 23427) CALC BUN/CREAT (test code = 18 RATIO [...] THYROX. BIND. CAPAC. (test code 1.1 = 02881) T4 (THYROXINE) (test code = 4.3 UG/DL 2819) CORRECTED T4 (FTI) (test code = 3.9 UG/DL 2820) TSH, THIRD GENERATION (test 18.900 UIU/ML code = 2821) THYROID II PROFILE (T3U, T4, T7, TSH)2020-05-23 00:00:00 Test Item Value Reference Range Interpretation Comments T-UPTAKE (test code = 2816) 30.2 % THYROX. BIND. CAPAC. (test code 1.1 = 72458) T4 (THYROXINE) (test code = 4.3 UG/DL 2819) CORRECTED T4 (FTI) (test code = 3.9 UG/DL 2820) TSH, THIRD GENERATION (test 18.900 UIU/ML code = 2821) HEMOGLOBIN [id number] 00:00:00 Test Item Value Reference Range Interpretation Comments HEMOGLOBIN A1c (test code = 07779) 6.6 % HEMOGLOBIN [id number] 00:00:00 Test Item Value Reference Range Interpretation Comments HEMOGLOBIN A1c (test code = 59147) 6.6 % HEMOGLOBIN [id number] 00:00:00 Test Item Value Reference Range Interpretation Comments HEMOGLOBIN A1c (test code = 89686) 6.6 % LIPID [id number] 00:00:00 Test Item Value Reference Range Interpretation Comments CHOLESTEROL (test code = 2210) 261 MG/DL TRIGLYCERIDES (test code = 2232) 159 MG/DL HDL CHOLESTEROL (test code = 2220) 82 MG/DL CALC LDL CHOL (test code = 2237) 150 MG/DL RISK RATIO LDL/HDL (test code = 1.83 RATIO 2238) LIPID [id number] 00:00:00 Test Item Value Reference Range Interpretation Comments CHOLESTEROL (test code = 2210) 261 MG/DL TRIGLYCERIDES (test code = 2232) 159 MG/DL HDL CHOLESTEROL (test code = 2220) 82 MG/DL CALC LDL CHOL (test code = 2237) 150 MG/DL RISK RATIO LDL/HDL (test code = 1.83 RATIO 2238) COMPREHENSIVE METABOLIC [id number] 00:00:00 Test Item Value Reference Range Interpretation Comments GLUCOSE (test code = 2217) 144 MG/DL BUN (test code = 2208) 15 MG/DL CREATININE (test code = 2214) 0.85 MG/DL eGFR AMER. (test code 87 ML/MIN/1.73 = 13431) eGFR NON- AMER. (test 75 ML/MIN/1.73 code = 33971) CALC BUN/CREAT (test code = 18 RATIO [...] code = 2219) 50 U/L COMPREHENSIVE METABOLIC [id number] 00:00:00 Test Item Value Reference Range Interpretation Comments GLUCOSE (test code = 2217) 144 MG/DL BUN (test code = 2208) 15 MG/DL CREATININE (test code = 2214) 0.85 MG/DL eGFR AMER. (test code 87 ML/MIN/1.73 = 53811) eGFR NON- AMER. (test 75 ML/MIN/1.73 code = 44589) CALC BUN/CREAT (test code = 18 RATIO [...] THYROX. BIND. CAPAC. (test code 1.1 = 40653) T4 (THYROXINE) (test code = 4.3 UG/DL 2818) CORRECTED T4 (FTI) (test code = 3.9 UG/DL 2820) TSH, THIRD GENERATION (test 18.900 UIU/ML code = 2821) THYROID II PROFILE (T3U, T4, T7, TSH)2020-05-23 00:00:00 Test Item Value Reference Range Interpretation Comments T-UPTAKE (test code = 2817) 30.2 % THYROX. BIND. CAPAC. (test code 1.1 = 80982) T4 (THYROXINE) (test code = 4.3 UG/DL 2819) CORRECTED T4 (FTI) (test code = 3.9 UG/DL 2820) TSH, THIRD GENERATION (test 18.900 UIU/ML code = 2821) HEMOGLOBIN [id number] 00:00:00 Test Item Value Reference Range Interpretation Comments HEMOGLOBIN A1c (test code = 51543) 6.6 % HEMOGLOBIN [id number] 00:00:00 Test Item Value Reference Range Interpretation Comments HEMOGLOBIN A1c (test code = 43999) 6.6 % LIPID [id number] 00:00:00 Test Item Value Reference Range Interpretation Comments CHOLESTEROL (test code = 2210) 261 MG/DL TRIGLYCERIDES (test code = 2232) 159 MG/DL HDL CHOLESTEROL (test code = 2220) 82 MG/DL CALC LDL CHOL (test code = 2237) 150 MG/DL RISK RATIO LDL/HDL (test code = 1.83 RATIO 2238) COMPREHENSIVE METABOLIC [id number] 00:00:00 Test Item Value Reference Range Interpretation Comments GLUCOSE (test code = 2217) 144 MG/DL BUN (test code = 2208) 15 MG/DL CREATININE (test code = 2214) 0.85 MG/DL eGFR AMER. (test code 87 ML/MIN/1.73 = 43979) eGFR NON- AMER. (test 75 ML/MIN/1.73 code = 34570) CALC BUN/CREAT (test code = 18 RATIO [...] THYROX. BIND. CAPAC. (test code 1.1 = 61114) T4 (THYROXINE) (test code = 4.3 UG/DL 281) CORRECTED T4 (FTI) (test code = 3.9 UG/DL 2820) TSH, THIRD GENERATION (test 18.900 UIU/ML code = 2821) HEMOGLOBIN [id number] 00:00:00 Test Item Value Reference Range Interpretation Comments HEMOGLOBIN A1c (test code = 54991) 6.6 % HEMOGLOBIN [id number] 00:00:00 Test Item Value Reference Range Interpretation Comments HEMOGLOBIN A1c (test code = 84021) 6.6 % HEMOGLOBIN [id number] 00:00:00 Test Item Value Reference Range Interpretation Comments HEMOGLOBIN A1c (test code = 28900) 6.6 % LIPID [id number] 00:00:00 Test Item Value Reference Range Interpretation Comments CHOLESTEROL (test code = 2210) 261 MG/DL TRIGLYCERIDES (test code = 2232) 159 MG/DL HDL CHOLESTEROL (test code = 2220) 82 MG/DL CALC LDL CHOL (test code = 2237) 150 MG/DL RISK RATIO LDL/HDL (test code = 1.83 RATIO 2238) LIPID [id number] 00:00:00 Test Item Value Reference Range Interpretation Comments CHOLESTEROL (test code = 2210) 261 MG/DL TRIGLYCERIDES (test code = 2232) 159 MG/DL HDL CHOLESTEROL (test code = 2220) 82 MG/DL CALC LDL CHOL (test code = 2237) 150 MG/DL RISK RATIO LDL/HDL (test code = 1.83 RATIO 2238) COMPREHENSIVE METABOLIC [id number] 00:00:00 Test Item Value Reference Range Interpretation Comments GLUCOSE (test code = 2217) 144 MG/DL BUN (test code = 2208) 15 MG/DL CREATININE (test code = 2214) 0.85 MG/DL eGFR AMER. (test code 87 ML/MIN/1.73 = 87814) eGFR NON- AMER. (test 75 ML/MIN/1.73 code = 40968) CALC BUN/CREAT (test code = 18 RATIO [...] code = 2219) 50 U/L COMPREHENSIVE METABOLIC [id number] 00:00:00 Test Item Value Reference Range Interpretation Comments GLUCOSE (test code = 2217) 144 MG/DL BUN (test code = 2208) 15 MG/DL CREATININE (test code = 2214) 0.85 MG/DL eGFR AMER. (test code 87 ML/MIN/1.73 = 54082) eGFR NON- AMER. (test 75 ML/MIN/1.73 code = 49282) CALC BUN/CREAT (test code = 18 RATIO [...] THYROX. BIND. CAPAC. (test code 1.1 = 56492) T4 (THYROXINE) (test code = 4.3 UG/DL 2819) CORRECTED T4 (FTI) (test code = 3.9 UG/DL 2820) TSH, THIRD GENERATION (test 18.900 UIU/ML code = 2821) THYROID II PROFILE (T3U, T4, T7, TSH)2020-05-23 00:00:00 Test Item Value Reference Range Interpretation Comments T-UPTAKE (test code = 2817) 30.2 % THYROX. BIND. CAPAC. (test code 1.1 = 75467) T4 (THYROXINE) (test code = 4.3 UG/DL 2819) CORRECTED T4 (FTI) (test code = 3.9 UG/DL 2820) TSH, THIRD GENERATION (test 18.900 UIU/ML code = 2821) HEMOGLOBIN [id number] 00:00:00 Test Item Value Reference Range Interpretation Comments HEMOGLOBIN A1c (test code = 52324) 6.7 % HEMOGLOBIN [id number] 00:00:00 Test Item Value Reference Range Interpretation Comments HEMOGLOBIN A1c (test code = 29513) 6.7 % HEMOGLOBIN [id number] 00:00:00 Test Item Value Reference Range Interpretation Comments HEMOGLOBIN A1c (test code = 88590) 6.7 % LIPID [id number] 00:00:00 Test Item Value Reference Range Interpretation Comments CHOLESTEROL (test code = 2210) 267 MG/DL TRIGLYCERIDES (test code = 2232) 137 MG/DL HDL CHOLESTEROL (test code = 2220) 48 MG/DL CALC LDL CHOL (test code = 2237) 192 MG/DL RISK RATIO LDL/HDL (test code = 4.00 RATIO 2238) LIPID [id number] 00:00:00 Test Item Value Reference Range Interpretation Comments CHOLESTEROL (test code = 2210) 267 MG/DL TRIGLYCERIDES (test code = 2232) 137 MG/DL HDL CHOLESTEROL (test code = 2220) 48 MG/DL CALC LDL CHOL (test code = 2237) 192 MG/DL RISK RATIO LDL/HDL (test code = 4.00 RATIO 2238) COMPREHENSIVE METABOLIC [id number] 00:00:00 Test Item Value Reference Range Interpretation Comments GLUCOSE (test code = 2217) 155 MG/DL BUN (test code = 2208) 14 MG/DL CREATININE (test code = 2214) 0.52 MG/DL eGFR AMER. (test code 122 ML/MIN/1.73 = 69323) eGFR NON- AMER. (test 105 ML/MIN/1.73 code = 45706) CALC BUN/CREAT (test code = 27 RATIO [...] code = 2219) 27 U/L COMPREHENSIVE METABOLIC [id number] 00:00:00 Test Item Value Reference Range Interpretation Comments GLUCOSE (test code = 2217) 155 MG/DL BUN (test code = 2208) 14 MG/DL CREATININE (test code = 2214) 0.52 MG/DL eGFR AMER. (test code 122 ML/MIN/1.73 = 46091) eGFR NON- AMER. (test 105 ML/MIN/1.73 code = 68918) CALC BUN/CREAT (test code = 27 RATIO [...] THYROX. BIND. CAPAC. (test code 1.0 = 63529) T4 (THYROXINE) (test code = 4.7 UG/DL 2819) CORRECTED T4 (FTI) (test code = 4.7 UG/DL 2820) TSH, THIRD GENERATION (test code 0.201 UIU/ML = 2821) THYROID II PROFILE (T3U, T4, T7, TSH)2019 00:00:00 Test Item Value Reference Range Interpretation Comments T-UPTAKE (test code = 7) 33.1 % THYROX. BIND. CAPAC. (test code 1.0 = 49673) T4 (THYROXINE) (test code = 4.7 UG/DL 2819) CORRECTED T4 (FTI) (test code = 4.7 UG/DL 2820) TSH, THIRD GENERATION (test code 0.201 UIU/ML = 2821) HEMOGLOBIN [id number] 00:00:00 Test Item Value Reference Range Interpretation Comments HEMOGLOBIN A1c (test code = 97484) 6.7 % HEMOGLOBIN [id number] 00:00:00 Test Item Value Reference Range Interpretation Comments HEMOGLOBIN A1c (test code = 21827) 6.7 % HEMOGLOBIN [id number] 00:00:00 Test Item Value Reference Range Interpretation Comments HEMOGLOBIN A1c (test code = 87522) 6.7 % LIPID [id number] 00:00:00 Test Item Value Reference Range Interpretation Comments CHOLESTEROL (test code = 2210) 267 MG/DL TRIGLYCERIDES (test code = 2232) 137 MG/DL HDL CHOLESTEROL (test code = 2220) 48 MG/DL CALC LDL CHOL (test code = 2237) 192 MG/DL RISK RATIO LDL/HDL (test code = 4.00 RATIO 2238) LIPID [id number] 00:00:00 Test Item Value Reference Range Interpretation Comments CHOLESTEROL (test code = 2210) 267 MG/DL TRIGLYCERIDES (test code = 2232) 137 MG/DL HDL CHOLESTEROL (test code = 2220) 48 MG/DL CALC LDL CHOL (test code = 2237) 192 MG/DL RISK RATIO LDL/HDL (test code = 4.00 RATIO 2238) COMPREHENSIVE METABOLIC [id number] 00:00:00 Test Item Value Reference Range Interpretation Comments GLUCOSE (test code = 2217) 155 MG/DL BUN (test code = 2208) 14 MG/DL CREATININE (test code = 2214) 0.52 MG/DL eGFR AMER. (test code 122 ML/MIN/1.73 = 16643) eGFR NON- AMER. (test 105 ML/MIN/1.73 code = 43516) CALC BUN/CREAT (test code = 27 RATIO [...] code = 2219) 27 U/L COMPREHENSIVE METABOLIC [id number] 00:00:00 Test Item Value Reference Range Interpretation Comments GLUCOSE (test code = 2217) 155 MG/DL BUN (test code = 2208) 14 MG/DL CREATININE (test code = 2214) 0.52 MG/DL eGFR AMER. (test code 122 ML/MIN/1.73 = 31417) eGFR NON- AMER. (test 105 ML/MIN/1.73 code = 33089) CALC BUN/CREAT (test code = 27 RATIO [...] THYROX. BIND. CAPAC. (test code 1.0 = 96164) T4 (THYROXINE) (test code = 4.7 UG/DL 2819) CORRECTED T4 (FTI) (test code = 4.7 UG/DL 2820) TSH, THIRD GENERATION (test code 0.201 UIU/ML = 2821) THYROID II PROFILE (T3U, T4, T7, TSH)2019 00:00:00 Test Item Value Reference Range Interpretation Comments T-UPTAKE (test code = 2817) 33.1 % THYROX. BIND. CAPAC. (test code 1.0 = 46347) T4 (THYROXINE) (test code = 4.7 UG/DL 2819) CORRECTED T4 (FTI) (test code = 4.7 UG/DL 2820) TSH, THIRD GENERATION (test code 0.201 UIU/ML = 2821) HEMOGLOBIN [id number] 00:00:00 Test Item Value Reference Range Interpretation Comments HEMOGLOBIN A1c (test code = 03172) 6.7 % HEMOGLOBIN [id number] 00:00:00 Test Item Value Reference Range Interpretation Comments HEMOGLOBIN A1c (test code = 35095) 6.7 % LIPID [id number] 00:00:00 Test Item Value Reference Range Interpretation Comments CHOLESTEROL (test code = 2210) 267 MG/DL TRIGLYCERIDES (test code = 2232) 137 MG/DL HDL CHOLESTEROL (test code = 2220) 48 MG/DL CALC LDL CHOL (test code = 2237) 192 MG/DL RISK RATIO LDL/HDL (test code = 4.00 RATIO 2238) COMPREHENSIVE METABOLIC [id number] 00:00:00 Test Item Value Reference Range Interpretation Comments GLUCOSE (test code = 2217) 155 MG/DL BUN (test code = 2208) 14 MG/DL CREATININE (test code = 2214) 0.52 MG/DL eGFR AMER. (test code 122 ML/MIN/1.73 = 54972) eGFR NON- AMER. (test 105 ML/MIN/1.73 code = 27184) CALC BUN/CREAT (test code = 27 RATIO [...] THYROX. BIND. CAPAC. (test code 1.0 = 87994) T4 (THYROXINE) (test code = 4.7 UG/DL 2819) CORRECTED T4 (FTI) (test code = 4.7 UG/DL 2820) TSH, THIRD GENERATION (test code 0.201 UIU/ML = 2821) HEMOGLOBIN [id number] 00:00:00 Test Item Value Reference Range Interpretation Comments HEMOGLOBIN A1c (test code = 56461) 6.7 % HEMOGLOBIN [id number] 00:00:00 Test Item Value Reference Range Interpretation Comments HEMOGLOBIN A1c (test code = 13082) 6.7 % HEMOGLOBIN [id number] 00:00:00 Test Item Value Reference Range Interpretation Comments HEMOGLOBIN A1c (test code = 50357) 6.7 % LIPID [id number] 00:00:00 Test Item Value Reference Range Interpretation Comments CHOLESTEROL (test code = 2210) 267 MG/DL TRIGLYCERIDES (test code = 2232) 137 MG/DL HDL CHOLESTEROL (test code = 2220) 48 MG/DL CALC LDL CHOL (test code = 2237) 192 MG/DL RISK RATIO LDL/HDL (test code = 4.00 RATIO 2238) LIPID [id number] 00:00:00 Test Item Value Reference Range Interpretation Comments CHOLESTEROL (test code = 2210) 267 MG/DL TRIGLYCERIDES (test code = 2232) 137 MG/DL HDL CHOLESTEROL (test code = 2220) 48 MG/DL CALC LDL CHOL (test code = 2237) 192 MG/DL RISK RATIO LDL/HDL (test code = 4.00 RATIO 2238) COMPREHENSIVE METABOLIC [id number] 00:00:00 Test Item Value Reference Range Interpretation Comments GLUCOSE (test code = 2217) 155 MG/DL BUN (test code = 2208) 14 MG/DL CREATININE (test code = 2214) 0.52 MG/DL eGFR AMER. (test code 122 ML/MIN/1.73 = 52682) eGFR NON- AMER. (test 105 ML/MIN/1.73 code = 97203) CALC BUN/CREAT (test code = 27 RATIO [...] code = 2219) 27 U/L COMPREHENSIVE METABOLIC [id number] 00:00:00 Test Item Value Reference Range Interpretation Comments GLUCOSE (test code = 2217) 155 MG/DL BUN (test code = 2208) 14 MG/DL CREATININE (test code = 2214) 0.52 MG/DL eGFR AMER. (test code 122 ML/MIN/1.73 = 27207) eGFR NON- AMER. (test 105 ML/MIN/1.73 code = 38260) CALC BUN/CREAT (test code = 27 RATIO [...] THYROX. BIND. CAPAC. (test code 1.0 = 57072) T4 (THYROXINE) (test code = 4.7 UG/DL 2818) CORRECTED T4 (FTI) (test code = 4.7 UG/DL 2820) TSH, THIRD GENERATION (test code 0.201 UIU/ML = 2821) THYROID II PROFILE (T3U, T4, T7, TSH)2019 00:00:00 Test Item Value Reference Range Interpretation Comments T-UPTAKE (test code = 2817) 33.1 % THYROX. BIND. CAPAC. (test code 1.0 = 25162) T4 (THYROXINE) (test code = 4.7 UG/DL 2819) CORRECTED T4 (FTI) (test code = 4.7 UG/DL 2820) TSH, THIRD GENERATION (test code 0.201 UIU/ML = 2821) SARS-CoV-2 (COVID-19) by RT-PCR (HIGH RISK)2019-09-18 00:00:00 Test Item Value Reference Range Interpretation Comments SARS-CoV-2 INTERPRETATION (test NEGATIVE code = 66995) SOURCE (test code = 64278) NOT SPECIFIED SARS-CoV-2 (COVID-19) by RT-PCR (HIGH RISK)2019-09-18 00:00:00 Test Item Value Reference Range Interpretation Comments SARS-CoV-2 INTERPRETATION (test NEGATIVE code = 93437) SOURCE (test code = 90495) NOT SPECIFIED SARS-CoV-2 (COVID-19) by RT-PCR (HIGH RISK)2019-09-18 00:00:00 Test Item Value Reference Range Interpretation Comments SARS-CoV-2 INTERPRETATION (test NEGATIVE code = 88938) SOURCE (test code = 32492) NOT SPECIFIED SARS-CoV-2 (COVID-19) by RT-PCR (HIGH RISK)2019-09-18 00:00:00 Test Item Value Reference Range Interpretation Comments SARS-CoV-2 INTERPRETATION (test NEGATIVE code = 40906) SOURCE (test code = 65921) NOT SPECIFIED SARS-CoV-2 (COVID-19) by RT-PCR (HIGH RISK)2019-09-18 00:00:00 Test Item Value Reference Range Interpretation Comments SARS-CoV-2 INTERPRETATION (test NEGATIVE code = 96773) SOURCE (test code = 14558) NOT SPECIFIED SARS-CoV-2 (COVID-19) by RT-PCR (HIGH RISK)2019-09-18 00:00:00 Test Item Value Reference Range Interpretation Comments SARS-CoV-2 INTERPRETATION (test NEGATIVE code = 40600) SOURCE (test code = 88289) NOT SPECIFIED SARS-CoV-2 (COVID-19) by RT-PCR (HIGH RISK)2019-09-18 00:00:00 Test Item Value Reference Range Interpretation Comments SARS-CoV-2 INTERPRETATION (test NEGATIVE code = 85780) SOURCE (test code = 59834) NOT SPECIFIED [id number] 00:00:00 Test Item Value Reference Range Interpretation Comments TSH, THIRD GENERATION (test code 2.490 UIU/ML = 2821) [id number] 00:00:00 Test Item Value Reference Range Interpretation Comments TSH, THIRD GENERATION (test code 2.490 UIU/ML = 2821) [id number] 00:00:00 Test Item Value Reference Range Interpretation Comments TSH, THIRD GENERATION (test code 2.490 UIU/ML = 2821) HEMOGLOBIN [id number] 00:00:00 Test Item Value Reference Range Interpretation Comments HEMOGLOBIN A1c (test code = 87914) 6.4 % HEMOGLOBIN [id number] 00:00:00 Test Item Value Reference Range Interpretation Comments HEMOGLOBIN A1c (test code = 95122) 6.4 % HEMOGLOBIN [id number] 00:00:00 Test Item Value Reference Range Interpretation Comments HEMOGLOBIN A1c (test code = 00806) 6.4 % COMPREHENSIVE METABOLIC [id number] 00:00:00 Test Item Value Reference Range Interpretation Comments GLUCOSE (test code = 2217) 206 MG/DL BUN (test code = 2208) 23 MG/DL CREATININE (test code = 2214) 0.67 MG/DL eGFR AMER. (test code 112 ML/MIN/1.73 = 18930) eGFR NON- AMER. (test 97 ML/MIN/1.73 code = 18797) CALC BUN/CREAT (test code = 34 RATIO [...] code = 2219) 25 U/L COMPREHENSIVE METABOLIC [id number] 00:00:00 Test Item Value Reference Range Interpretation Comments GLUCOSE (test code = 2217) 206 MG/DL BUN (test code = 2208) 23 MG/DL CREATININE (test code = 2214) 0.67 MG/DL eGFR AMER. (test code 112 ML/MIN/1.73 = 79696) eGFR NON- AMER. (test 97 ML/MIN/1.73 code = 62465) CALC BUN/CREAT (test code = 34 RATIO [...] ALT (test code = 2219) 25 U/L [id number] 00:00:00 Test Item Value Reference Range Interpretation Comments TSH, THIRD GENERATION (test code 2.490 UIU/ML = 2821) [id number] 00:00:00 Test Item Value Reference Range Interpretation Comments TSH, THIRD GENERATION (test code 2.490 UIU/ML = 2821) [id number] 00:00:00 Test Item Value Reference Range Interpretation Comments TSH, THIRD GENERATION (test code 2.490 UIU/ML = 2821) HEMOGLOBIN [id number] 00:00:00 Test Item Value Reference Range Interpretation Comments HEMOGLOBIN A1c (test code = 03124) 6.4 % HEMOGLOBIN [id number] 00:00:00 Test Item Value Reference Range Interpretation Comments HEMOGLOBIN A1c (test code = 67317) 6.4 % HEMOGLOBIN [id number] 00:00:00 Test Item Value Reference Range Interpretation Comments HEMOGLOBIN A1c (test code = 20773) 6.4 % COMPREHENSIVE METABOLIC [id number] 00:00:00 Test Item Value Reference Range Interpretation Comments GLUCOSE (test code = 2217) 206 MG/DL BUN (test code = 2208) 23 MG/DL CREATININE (test code = 2214) 0.67 MG/DL eGFR AMER. (test code 112 ML/MIN/1.73 = 64917) eGFR NON- AMER. (test 97 ML/MIN/1.73 code = 59150) CALC BUN/CREAT (test code = 34 RATIO [...] code = 2219) 25 U/L COMPREHENSIVE METABOLIC [id number] 00:00:00 Test Item Value Reference Range Interpretation Comments GLUCOSE (test code = 2217) 206 MG/DL BUN (test code = 2208) 23 MG/DL CREATININE (test code = 2214) 0.67 MG/DL eGFR AMER. (test code 112 ML/MIN/1.73 = 99465) eGFR NON- AMER. (test 97 ML/MIN/1.73 code = 78468) CALC BUN/CREAT (test code = 34 RATIO [...] ALT (test code = 2219) 25 U/L [id number] 00:00:00 Test Item Value Reference Range Interpretation Comments TSH, THIRD GENERATION (test code 2.490 UIU/ML = 2821) [id number] 00:00:00 Test Item Value Reference Range Interpretation Comments TSH, THIRD GENERATION (test code 2.490 UIU/ML = 2821) HEMOGLOBIN [id number] 00:00:00 Test Item Value Reference Range Interpretation Comments HEMOGLOBIN A1c (test code = 68869) 6.4 % HEMOGLOBIN [id number] 00:00:00 Test Item Value Reference Range Interpretation Comments HEMOGLOBIN A1c (test code = 77191) 6.4 % COMPREHENSIVE METABOLIC [id number] 00:00:00 Test Item Value Reference Range Interpretation Comments GLUCOSE (test code = 2217) 206 MG/DL BUN (test code = 2208) 23 MG/DL CREATININE (test code = 2214) 0.67 MG/DL eGFR AMER. (test code 112 ML/MIN/1.73 = 56184) eGFR NON- AMER. (test 97 ML/MIN/1.73 code = 25586) CALC BUN/CREAT (test code = 34 RATIO [...] ALT (test code = 2219) 25 U/L [id number] 00:00:00 Test Item Value Reference Range Interpretation Comments TSH, THIRD GENERATION (test code 2.490 UIU/ML = 2821) [id number] 00:00:00 Test Item Value Reference Range Interpretation Comments TSH, THIRD GENERATION (test code 2.490 UIU/ML = 2821) [id number] 00:00:00 Test Item Value Reference Range Interpretation Comments TSH, THIRD GENERATION (test code 2.490 UIU/ML = 2821) HEMOGLOBIN [id number] 00:00:00 Test Item Value Reference Range Interpretation Comments HEMOGLOBIN A1c (test code = 73079) 6.4 % HEMOGLOBIN [id number] 00:00:00 Test Item Value Reference Range Interpretation Comments HEMOGLOBIN A1c (test code = 43446) 6.4 % HEMOGLOBIN [id number] 00:00:00 Test Item Value Reference Range Interpretation Comments HEMOGLOBIN A1c (test code = 58573) 6.4 % COMPREHENSIVE METABOLIC [id number] 00:00:00 Test Item Value Reference Range Interpretation Comments GLUCOSE (test code = 2217) 206 MG/DL BUN (test code = 2208) 23 MG/DL CREATININE (test code = 2214) 0.67 MG/DL eGFR AMER. (test code 112 ML/MIN/1.73 = 29075) eGFR NON- AMER. (test 97 ML/MIN/1.73 code = 09004) CALC BUN/CREAT (test code = 34 RATIO [...] code = 2219) 25 U/L COMPREHENSIVE METABOLIC [id number] 00:00:00 Test Item Value Reference Range Interpretation Comments GLUCOSE (test code = 2217) 206 MG/DL BUN (test code = 2208) 23 MG/DL CREATININE (test code = 2214) 0.67 MG/DL eGFR AMER. (test code 112 ML/MIN/1.73 = 56211) eGFR NON- AMER. (test 97 ML/MIN/1.73 code = 14138) CALC BUN/CREAT (test code = 34 RATIO [...] = 2219) 25 U/L VAGINAL PATHOGENS DNA [id number] 00:00:00 Test Item Value Reference Range Interpretation Comments MARK SPECIES (test code = ) NEGATIVE G. VAGINALIS (test code = ) NEGATIVE T. VAGINALIS (test code = ) NEGATIVE VAGINAL PATHOGENS DNA [id number] 00:00:00 Test Item Value Reference Range Interpretation Comments MARK SPECIES (test code = ) NEGATIVE G. VAGINALIS (test code = 63577) NEGATIVE T. VAGINALIS (test code = 20522) NEGATIVE VAGINAL PATHOGENS DNA [id number] 00:00:00 Test Item Value Reference Range Interpretation Comments MARK SPECIES (test code = 63116) NEGATIVE G. VAGINALIS (test code = 85554) NEGATIVE T. VAGINALIS (test code = 75358) NEGATIVE VAGINAL PATHOGENS DNA [id number] 00:00:00 Test Item Value Reference Range Interpretation Comments MARK SPECIES (test code = 01932) NEGATIVE G. VAGINALIS (test code = 55616) NEGATIVE T. VAGINALIS (test code = 27296) NEGATIVE VAGINAL PATHOGENS DNA [id number] 00:00:00 Test Item Value Reference Range Interpretation Comments MARK SPECIES (test code = 69686) NEGATIVE G. VAGINALIS (test code = 62037) NEGATIVE T. VAGINALIS (test code = 44773) NEGATIVE VAGINAL PATHOGENS DNA [id number] 00:00:00 Test Item Value Reference Range Interpretation Comments MARK SPECIES (test code = 92170) NEGATIVE G. VAGINALIS (test code = 16163) NEGATIVE T. VAGINALIS (test code = 72762) NEGATIVE VAGINAL PATHOGENS DNA [id number] 00:00:00 Test Item Value Reference Range Interpretation Comments MARK SPECIES (test code = 31258) NEGATIVE G. VAGINALIS (test code = 01419) NEGATIVE T. VAGINALIS (test code = 45115) NEGATIVE HEMOGLOBIN A1c [ADDED]2018-12-01 00:00:00 Test Item Value Reference Range Interpretation Comments HEMOGLOBIN A1c (test code = 10231) 6.7 % HEMOGLOBIN A1c [ADDED]2018-12-01 00:00:00 Test Item Value Reference Range Interpretation Comments HEMOGLOBIN A1c (test code = 09769) 6.7 % HEMOGLOBIN A1c [ADDED]2018-12-01 00:00:00 Test Item Value Reference Range Interpretation Comments HEMOGLOBIN A1c (test code = 35252) 6.7 % COMPREHENSIVE METABOLIC PANEL [ADDED]2018-12-01 00:00:00 Test Item Value Reference Range Interpretation Comments GLUCOSE (test code = 2217) 136 MG/DL BUN (test code = 2208) 15 MG/DL CREATININE (test code = 2214) 0.64 MG/DL eGFR AMER. (test code 115 ML/MIN/1.73 = 52664) eGFR NON- AMER. (test 99 ML/MIN/1.73 code = 74028) CALC BUN/CREAT (test code = 23 RATIO [...] eGFR AMER. (test code 115 ML/MIN/1.73 = 76443) eGFR NON- AMER. (test 99 ML/MIN/1.73 code = 80861) CALC BUN/CREAT (test code = 23 RATIO [...] Interpretation Comments HEMOGLOBIN A1c (test code = 46801) 6.7 % HEMOGLOBIN A1c [ADDED]2018-12-01 00:00:00 Test Item Value Reference Range Interpretation Comments HEMOGLOBIN A1c (test code = 57584) 6.7 % HEMOGLOBIN A1c [ADDED]2018-12-01 00:00:00 Test Item Value Reference Range Interpretation Comments HEMOGLOBIN A1c (test code = 55723) 6.7 % COMPREHENSIVE METABOLIC PANEL [ADDED]2018-12-01 00:00:00 Test Item Value Reference Range Interpretation Comments GLUCOSE (test code = 2217) 136 MG/DL BUN (test code = 2208) 15 MG/DL CREATININE (test code = 2214) 0.64 MG/DL eGFR AMER. (test code 115 ML/MIN/1.73 = 85291) eGFR NON- AMER. (test 99 ML/MIN/1.73 code = 59483) CALC BUN/CREAT (test code = 23 RATIO [...] eGFR AMER. (test code 115 ML/MIN/1.73 = 10630) eGFR NON- AMER. (test 99 ML/MIN/1.73 code = 89907) CALC BUN/CREAT (test code = 23 RATIO [...] Interpretation Comments HEMOGLOBIN A1c (test code = 21831) 6.7 % HEMOGLOBIN A1c [ADDED]2018-12-01 00:00:00 Test Item Value Reference Range Interpretation Comments HEMOGLOBIN A1c (test code = 12103) 6.7 % COMPREHENSIVE METABOLIC PANEL [ADDED]2018-12-01 00:00:00 Test Item Value Reference Range Interpretation Comments GLUCOSE (test code = 2217) 136 MG/DL BUN (test code = 2208) 15 MG/DL CREATININE (test code = 2214) 0.64 MG/DL eGFR AMER. (test code 115 ML/MIN/1.73 = 70297) eGFR NON- AMER. (test 99 ML/MIN/1.73 code = 84068) CALC BUN/CREAT (test code = 23 RATIO [...] Interpretation Comments HEMOGLOBIN A1c (test code = 08429) 6.7 % HEMOGLOBIN A1c [ADDED]2018-12-01 00:00:00 Test Item Value Reference Range Interpretation Comments HEMOGLOBIN A1c (test code = 81318) 6.7 % HEMOGLOBIN A1c [ADDED]2018-12-01 00:00:00 Test Item Value Reference Range Interpretation Comments HEMOGLOBIN A1c (test code = 99919) 6.7 % COMPREHENSIVE METABOLIC PANEL [ADDED]2018-12-01 00:00:00 Test Item Value Reference Range Interpretation Comments GLUCOSE (test code = 2217) 136 MG/DL BUN (test code = 2208) 15 MG/DL CREATININE (test code = 2214) 0.64 MG/DL eGFR AMER. (test code 115 ML/MIN/1.73 = 57059) eGFR NON- AMER. (test 99 ML/MIN/1.73 code = 00293) CALC BUN/CREAT (test code = 23 RATIO [...] eGFR AMER. (test code 115 ML/MIN/1.73 = 94925) eGFR NON- AMER. (test 99 ML/MIN/1.73 code = 52265) CALC BUN/CREAT (test code = 23 RATIO [...] code 1.280 UIU/ML = 2821) CBC W/AUTO [id number] 00:00:00 Test Item Value Reference Range Interpretation [...] code = 1015) 346 K/UL CBC W/AUTO [id number] 00:00:00 Test Item Value Reference Range Interpretation [...] code = 1015) 346 K/UL CBC W/AUTO [id number] 00:00:00 Test Item Value Reference Range Interpretation [...] (test code = 1015) 346 K/UL HEMOGLOBIN [id number] 00:00:00 Test Item Value Reference Range Interpretation Comments HEMOGLOBIN A1c (test code = 41782) 5.9 % HEMOGLOBIN [id number] 00:00:00 Test Item Value Reference Range Interpretation Comments HEMOGLOBIN A1c (test code = 48474) 5.9 % HEMOGLOBIN [id number] 00:00:00 Test Item Value Reference Range Interpretation Comments HEMOGLOBIN A1c (test code = 97649) 5.9 % LIPID [id number] 00:00:00 Test Item Value Reference Range Interpretation Comments CHOLESTEROL (test code = 2210) 318 MG/DL TRIGLYCERIDES (test code = 2232) 263 MG/DL HDL CHOLESTEROL (test code = 2220) 51 MG/DL CALC LDL CHOL (test code = 2237) 214 MG/DL RISK RATIO LDL/HDL (test code = 4.20 RATIO 2238) LIPID [id number] 00:00:00 Test Item Value Reference Range Interpretation Comments CHOLESTEROL (test code = 2210) 318 MG/DL TRIGLYCERIDES (test code = 2232) 263 MG/DL HDL CHOLESTEROL (test code = 2220) 51 MG/DL CALC LDL CHOL (test code = 2237) 214 MG/DL RISK RATIO LDL/HDL (test code = 4.20 RATIO 2238) COMPREHENSIVE METABOLIC [id number] 00:00:00 Test Item Value Reference Range Interpretation Comments GLUCOSE (test code = 2217) 113 MG/DL BUN (test code = 2208) 18 MG/DL CREATININE (test code = 2214) 0.70 MG/DL eGFR AMER. (test code 111 ML/MIN/1.73 = 28187) eGFR NON- AMER. (test 96 ML/MIN/1.73 code = 63171) CALC BUN/CREAT (test code = 26 RATIO [...] code = 2219) 31 U/L COMPREHENSIVE METABOLIC [id number] 00:00:00 Test Item Value Reference Range Interpretation Comments GLUCOSE (test code = 2217) 113 MG/DL BUN (test code = 2208) 18 MG/DL CREATININE (test code = 2214) 0.70 MG/DL eGFR AMER. (test code 111 ML/MIN/1.73 = 26614) eGFR NON- AMER. (test 96 ML/MIN/1.73 code = 50821) CALC BUN/CREAT (test code = 26 RATIO [...] ALT (test code = 2219) 31 U/L [id number] 00:00:00 Test Item Value Reference Range Interpretation Comments TSH, THIRD GENERATION (test code 2.520 UIU/ML = 2821) [id number] 00:00:00 Test Item Value Reference Range Interpretation Comments TSH, THIRD GENERATION (test code 2.520 UIU/ML = 2821) [id number] 00:00:00 Test Item Value Reference Range Interpretation Comments TSH, THIRD GENERATION (test code 2.520 UIU/ML = 2821) CBC W/AUTO [id number] 00:00:00 Test Item Value Reference Range Interpretation [...] code = 1015) 346 K/UL CBC W/AUTO [id number] 00:00:00 Test Item Value Reference Range Interpretation [...] code = 1015) 346 K/UL CBC W/AUTO [id number] 00:00:00 Test Item Value Reference Range Interpretation [...] (test code = 1015) 346 K/UL HEMOGLOBIN [id number] 00:00:00 Test Item Value Reference Range Interpretation Comments HEMOGLOBIN A1c (test code = 78702) 5.9 % HEMOGLOBIN [id number] 00:00:00 Test Item Value Reference Range Interpretation Comments HEMOGLOBIN A1c (test code = 46873) 5.9 % HEMOGLOBIN [id number] 00:00:00 Test Item Value Reference Range Interpretation Comments HEMOGLOBIN A1c (test code = 00612) 5.9 % LIPID [id number] 00:00:00 Test Item Value Reference Range Interpretation Comments CHOLESTEROL (test code = 2210) 318 MG/DL TRIGLYCERIDES (test code = 2232) 263 MG/DL HDL CHOLESTEROL (test code = 2220) 51 MG/DL CALC LDL CHOL (test code = 2237) 214 MG/DL RISK RATIO LDL/HDL (test code = 4.20 RATIO 2238) LIPID [id number] 00:00:00 Test Item Value Reference Range Interpretation Comments CHOLESTEROL (test code = 2210) 318 MG/DL TRIGLYCERIDES (test code = 2232) 263 MG/DL HDL CHOLESTEROL (test code = 2220) 51 MG/DL CALC LDL CHOL (test code = 2237) 214 MG/DL RISK RATIO LDL/HDL (test code = 4.20 RATIO 2238) COMPREHENSIVE METABOLIC [id number] 00:00:00 Test Item Value Reference Range Interpretation Comments GLUCOSE (test code = 2217) 113 MG/DL BUN (test code = 2208) 18 MG/DL CREATININE (test code = 2214) 0.70 MG/DL eGFR AMER. (test code 111 ML/MIN/1.73 = 24146) eGFR NON- AMER. (test 96 ML/MIN/1.73 code = 17155) CALC BUN/CREAT (test code = 26 RATIO [...] code = 2219) 31 U/L COMPREHENSIVE METABOLIC [id number] 00:00:00 Test Item Value Reference Range Interpretation Comments GLUCOSE (test code = 2217) 113 MG/DL BUN (test code = 2208) 18 MG/DL CREATININE (test code = 2214) 0.70 MG/DL eGFR AMER. (test code 111 ML/MIN/1.73 = 49154) eGFR NON- AMER. (test 96 ML/MIN/1.73 code = 86969) CALC BUN/CREAT (test code = 26 RATIO [...] ALT (test code = 2219) 31 U/L [id number] 00:00:00 Test Item Value Reference Range Interpretation Comments TSH, THIRD GENERATION (test code 2.520 UIU/ML = 2821) [id number] 00:00:00 Test Item Value Reference Range Interpretation Comments TSH, THIRD GENERATION (test code 2.520 UIU/ML = 2821) [id number] 00:00:00 Test Item Value Reference Range Interpretation Comments TSH, THIRD GENERATION (test code 2.520 UIU/ML = 2821) CBC W/AUTO [id number] 00:00:00 Test Item Value Reference Range Interpretation [...] code = 1015) 346 K/UL CBC W/AUTO [id number] 00:00:00 Test Item Value Reference Range Interpretation [...] (test code = 1015) 346 K/UL HEMOGLOBIN [id number] 00:00:00 Test Item Value Reference Range Interpretation Comments HEMOGLOBIN A1c (test code = 26653) 5.9 % HEMOGLOBIN [id number] 00:00:00 Test Item Value Reference Range Interpretation Comments HEMOGLOBIN A1c (test code = 61854) 5.9 % LIPID [id number] 00:00:00 Test Item Value Reference Range Interpretation Comments CHOLESTEROL (test code = 2210) 318 MG/DL TRIGLYCERIDES (test code = 2232) 263 MG/DL HDL CHOLESTEROL (test code = 2220) 51 MG/DL CALC LDL CHOL (test code = 2237) 214 MG/DL RISK RATIO LDL/HDL (test code = 4.20 RATIO 2238) COMPREHENSIVE METABOLIC [id number] 00:00:00 Test Item Value Reference Range Interpretation Comments GLUCOSE (test code = 2217) 113 MG/DL BUN (test code = 2208) 18 MG/DL CREATININE (test code = 2214) 0.70 MG/DL eGFR AMER. (test code 111 ML/MIN/1.73 = 39988) eGFR NON- AMER. (test 96 ML/MIN/1.73 code = 92551) CALC BUN/CREAT (test code = 26 RATIO [...] ALT (test code = 2219) 31 U/L [id number] 00:00:00 Test Item Value Reference Range Interpretation Comments TSH, THIRD GENERATION (test code 2.520 UIU/ML = 2821) [id number] 00:00:00 Test Item Value Reference Range Interpretation Comments TSH, THIRD GENERATION (test code 2.520 UIU/ML = 2821) CBC W/AUTO [id number] 00:00:00 Test Item Value Reference Range Interpretation [...] code = 1015) 346 K/UL CBC W/AUTO [id number] 00:00:00 Test Item Value Reference Range Interpretation [...] code = 1015) 346 K/UL CBC W/AUTO [id number] 00:00:00 Test Item Value Reference Range Interpretation [...] (test code = 1015) 346 K/UL HEMOGLOBIN [id number] 00:00:00 Test Item Value Reference Range Interpretation Comments HEMOGLOBIN A1c (test code = 38798) 5.9 % HEMOGLOBIN [id number] 00:00:00 Test Item Value Reference Range Interpretation Comments HEMOGLOBIN A1c (test code = 02799) 5.9 % HEMOGLOBIN [id number] 00:00:00 Test Item Value Reference Range Interpretation Comments HEMOGLOBIN A1c (test code = 04070) 5.9 % LIPID [id number] 00:00:00 Test Item Value Reference Range Interpretation Comments CHOLESTEROL (test code = 2210) 318 MG/DL TRIGLYCERIDES (test code = 2232) 263 MG/DL HDL CHOLESTEROL (test code = 2220) 51 MG/DL CALC LDL CHOL (test code = 2237) 214 MG/DL RISK RATIO LDL/HDL (test code = 4.20 RATIO 2238) LIPID [id number] 00:00:00 Test Item Value Reference Range Interpretation Comments CHOLESTEROL (test code = 2210) 318 MG/DL TRIGLYCERIDES (test code = 2232) 263 MG/DL HDL CHOLESTEROL (test code = 2220) 51 MG/DL CALC LDL CHOL (test code = 2237) 214 MG/DL RISK RATIO LDL/HDL (test code = 4.20 RATIO 2238) COMPREHENSIVE METABOLIC [id number] 00:00:00 Test Item Value Reference Range Interpretation Comments GLUCOSE (test code = 2217) 113 MG/DL BUN (test code = 2208) 18 MG/DL CREATININE (test code = 2214) 0.70 MG/DL eGFR AMER. (test code 111 ML/MIN/1.73 = 39842) eGFR NON- AMER. (test 96 ML/MIN/1.73 code = 13008) CALC BUN/CREAT (test code = 26 RATIO [...] code = 2219) 31 U/L COMPREHENSIVE METABOLIC [id number] 00:00:00 Test Item Value Reference Range Interpretation Comments GLUCOSE (test code = 2217) 113 MG/DL BUN (test code = 2208) 18 MG/DL CREATININE (test code = 2214) 0.70 MG/DL eGFR AMER. (test code 111 ML/MIN/1.73 = 30641) eGFR NON- AMER. (test 96 ML/MIN/1.73 code = 92440) CALC BUN/CREAT (test code = 26 RATIO [...] ALT (test code = 2219) 31 U/L [id number] 00:00:00 Test Item Value Reference Range Interpretation Comments TSH, THIRD GENERATION (test code 2.520 UIU/ML = 2821) [id number] 00:00:00 Test Item Value Reference Range Interpretation Comments TSH, THIRD GENERATION (test code 2.520 UIU/ML = 2821) [id number] 00:00:00 Test Item Value Reference Range Interpretation Comments TSH, THIRD GENERATION (test code 2.520 UIU/ML = 2821) CULTURE, [id number] 00:00:00 Test Item Value Reference Range Interpretation Comments CULTURE, URINE (test SPECIMEN NUMBER: code = 74984) [id number] CULTURE, [id number] 00:00:00 Test Item Value Reference Range Interpretation Comments CULTURE, URINE (test SPECIMEN NUMBER: code = 73627) [id number] CULTURE, [id number] 00:00:00 Test Item Value Reference Range Interpretation Comments CULTURE, URINE (test SPECIMEN NUMBER: code = 38094) [id number] CULTURE, [id number] 00:00:00 Test Item Value Reference Range Interpretation Comments CULTURE, URINE (test SPECIMEN NUMBER: code = 44142) [id number] CULTURE, [id number] 00:00:00 Test Item Value Reference Range Interpretation Comments CULTURE, URINE (test SPECIMEN NUMBER: code = 47940) [id number] CULTURE, [id number] 00:00:00 Test Item Value Reference Range Interpretation Comments CULTURE, URINE (test SPECIMEN NUMBER: code = 56897) [id number] CULTURE, [id number] 00:00:00 Test Item Value Reference Range Interpretation Comments CULTURE, URINE (test SPECIMEN NUMBER: code = 72256) [id number] CULTURE, [id number] 00:00:00 Test Item Value Reference Range Interpretation Comments CULTURE, URINE (test SPECIMEN NUMBER: code = 88971) [id number] CULTURE, [id number] 00:00:00 Test Item Value Reference Range Interpretation Comments CULTURE, URINE (test SPECIMEN NUMBER: code = 03615) [id number] CULTURE, [id number] 00:00:00 Test Item Value Reference Range Interpretation Comments CULTURE, URINE (test SPECIMEN NUMBER: code = 81425) [id number] CULTURE, [id number] 00:00:00 Test Item Value Reference Range Interpretation Comments CULTURE, URINE (test SPECIMEN NUMBER: code = 34718) [id number] CULTURE, [id number] 00:00:00 Test Item Value Reference Range Interpretation Comments CULTURE, URINE (test SPECIMEN NUMBER: code = 78314) [id number] CULTURE, [id number] 00:00:00 Test Item Value Reference Range Interpretation Comments CULTURE, URINE (test SPECIMEN NUMBER: code = 86183) [id number] CULTURE, [id number] 00:00:00 Test Item Value Reference Range Interpretation Comments CULTURE, URINE (test SPECIMEN NUMBER: code = 80456) [id number] BASIC METABOLIC [id number] 00:00:00 Test Item Value Reference Range Interpretation Comments GLUCOSE (test code = 2217) 135 MG/DL BUN (test code = 2208) 25 MG/DL CREATININE (test code = 2214) 0.76 MG/DL eGFR AMER. (test code 101 ML/MIN/1.73 = 27886) eGFR NON- AMER. (test 87 ML/MIN/1.73 code = 73942) SODIUM (test code = 2231) 139 MEQ/L POTASSIUM (test code = 2228) 4.7 MEQ/L CHLORIDE (test code = 2215) 99 MEQ/L CARBON DIOXIDE (test code = 26 MEQ/L 2206) CALCIUM (test code = 2209) 9.4 MG/DL BASIC METABOLIC [id number] 00:00:00 Test Item Value Reference Range Interpretation Comments GLUCOSE (test code = 2217) 135 MG/DL BUN (test code = 2208) 25 MG/DL CREATININE (test code = 2214) 0.76 MG/DL eGFR AMER. (test code 101 ML/MIN/1.73 = 49257) eGFR NON- AMER. (test 87 ML/MIN/1.73 code = 11917) SODIUM (test code = 2231) 139 MEQ/L POTASSIUM (test code = 2228) 4.7 MEQ/L CHLORIDE (test code = 2215) 99 MEQ/L CARBON DIOXIDE (test code = 26 MEQ/L 2206) CALCIUM (test code = 2209) 9.4 MG/DL LIPID [id number] 00:00:00 Test Item Value Reference Range Interpretation Comments CHOLESTEROL (test code = 2210) 262 MG/DL TRIGLYCERIDES (test code = 2232) 300 MG/DL HDL CHOLESTEROL (test code = 2220) 36 MG/DL CALC LDL CHOL (test code = 2237) 166 MG/DL RISK RATIO LDL/HDL (test code = 4.61 RATIO 2238) LIPID [id number] 00:00:00 Test Item Value Reference Range Interpretation Comments CHOLESTEROL (test code = 2210) 262 MG/DL TRIGLYCERIDES (test code = 2232) 300 MG/DL HDL CHOLESTEROL (test code = 2220) 36 MG/DL CALC LDL CHOL (test code = 2237) 166 MG/DL RISK RATIO LDL/HDL (test code = 4.61 RATIO 2238) HEMOGLOBIN [id number] 00:00:00 Test Item Value Reference Range Interpretation Comments HEMOGLOBIN A1c (test code = 07123) 6.2 % HEMOGLOBIN [id number] 00:00:00 Test Item Value Reference Range Interpretation Comments HEMOGLOBIN A1c (test code = 22802) 6.2 % HEMOGLOBIN [id number] 00:00:00 Test Item Value Reference Range Interpretation Comments HEMOGLOBIN A1c (test code = 62385) 6.2 % [id number] 00:00:00 Test Item Value Reference Range Interpretation Comments TSH, THIRD GENERATION (test code 0.988 UIU/ML = 2821) [id number] 00:00:00 Test Item Value Reference Range Interpretation Comments TSH, THIRD GENERATION (test code 0.988 UIU/ML = 2821) [id number] 00:00:00 Test Item Value Reference Range Interpretation Comments TSH, THIRD GENERATION (test code 0.988 UIU/ML = 2821) BASIC METABOLIC [id number] 00:00:00 Test Item Value Reference Range Interpretation Comments GLUCOSE (test code = 2217) 135 MG/DL BUN (test code = 2208) 25 MG/DL CREATININE (test code = 2214) 0.76 MG/DL eGFR AMER. (test code 101 ML/MIN/1.73 = 97830) eGFR NON- AMER. (test 87 ML/MIN/1.73 code = 85499) SODIUM (test code = 2231) 139 MEQ/L POTASSIUM (test code = 2228) 4.7 MEQ/L CHLORIDE (test code = 2215) 99 MEQ/L CARBON DIOXIDE (test code = 26 MEQ/L 2206) CALCIUM (test code = 2209) 9.4 MG/DL BASIC METABOLIC [id number] 00:00:00 Test Item Value Reference Range Interpretation Comments GLUCOSE (test code = 2217) 135 MG/DL BUN (test code = 2208) 25 MG/DL CREATININE (test code = 2214) 0.76 MG/DL eGFR AMER. (test code 101 ML/MIN/1.73 = 63146) eGFR NON- AMER. (test 87 ML/MIN/1.73 code = 27266) SODIUM (test code = 2231) 139 MEQ/L POTASSIUM (test code = 2228) 4.7 MEQ/L CHLORIDE (test code = 2215) 99 MEQ/L CARBON DIOXIDE (test code = 26 MEQ/L 2206) CALCIUM (test code = 2209) 9.4 MG/DL LIPID [id number] 00:00:00 Test Item Value Reference Range Interpretation Comments CHOLESTEROL (test code = 2210) 262 MG/DL TRIGLYCERIDES (test code = 2232) 300 MG/DL HDL CHOLESTEROL (test code = 2220) 36 MG/DL CALC LDL CHOL (test code = 2237) 166 MG/DL RISK RATIO LDL/HDL (test code = 4.61 RATIO 2238) LIPID [id number] 00:00:00 Test Item Value Reference Range Interpretation Comments CHOLESTEROL (test code = 2210) 262 MG/DL TRIGLYCERIDES (test code = 2232) 300 MG/DL HDL CHOLESTEROL (test code = 2220) 36 MG/DL CALC LDL CHOL (test code = 2237) 166 MG/DL RISK RATIO LDL/HDL (test code = 4.61 RATIO 2238) HEMOGLOBIN [id number] 00:00:00 Test Item Value Reference Range Interpretation Comments HEMOGLOBIN A1c (test code = 72865) 6.2 % HEMOGLOBIN [id number] 00:00:00 Test Item Value Reference Range Interpretation Comments HEMOGLOBIN A1c (test code = 68765) 6.2 % HEMOGLOBIN [id number] 00:00:00 Test Item Value Reference Range Interpretation Comments HEMOGLOBIN A1c (test code = 67156) 6.2 % [id number] 00:00:00 Test Item Value Reference Range Interpretation Comments TSH, THIRD GENERATION (test code 0.988 UIU/ML = 2821) [id number] 00:00:00 Test Item Value Reference Range Interpretation Comments TSH, THIRD GENERATION (test code 0.988 UIU/ML = 2821) [id number] 00:00:00 Test Item Value Reference Range Interpretation Comments TSH, THIRD GENERATION (test code 0.988 UIU/ML = 2821) BASIC METABOLIC [id number] 00:00:00 Test Item Value Reference Range Interpretation Comments GLUCOSE (test code = 2217) 135 MG/DL BUN (test code = 2208) 25 MG/DL CREATININE (test code = 2214) 0.76 MG/DL eGFR AMER. (test code 101 ML/MIN/1.73 = 86660) eGFR NON- AMER. (test 87 ML/MIN/1.73 code = 09029) SODIUM (test code = 2231) 139 MEQ/L POTASSIUM (test code = 2228) 4.7 MEQ/L CHLORIDE (test code = 2215) 99 MEQ/L CARBON DIOXIDE (test code = 26 MEQ/L 2205) CALCIUM (test code = 2209) 9.4 MG/DL LIPID [id number] 00:00:00 Test Item Value Reference Range Interpretation Comments CHOLESTEROL (test code = 2210) 262 MG/DL TRIGLYCERIDES (test code = 2232) 300 MG/DL HDL CHOLESTEROL (test code = 2220) 36 MG/DL CALC LDL CHOL (test code = 2237) 166 MG/DL RISK RATIO LDL/HDL (test code = 4.61 RATIO 2238) HEMOGLOBIN [id number] 00:00:00 Test Item Value Reference Range Interpretation Comments HEMOGLOBIN A1c (test code = 90721) 6.2 % HEMOGLOBIN [id number] 00:00:00 Test Item Value Reference Range Interpretation Comments HEMOGLOBIN A1c (test code = 16941) 6.2 % [id number] 00:00:00 Test Item Value Reference Range Interpretation Comments TSH, THIRD GENERATION (test code 0.988 UIU/ML = 2821) [id number] 00:00:00 Test Item Value Reference Range Interpretation Comments TSH, THIRD GENERATION (test code 0.988 UIU/ML = 2821) BASIC METABOLIC [id number] 00:00:00 Test Item Value Reference Range Interpretation Comments GLUCOSE (test code = 2217) 135 MG/DL BUN (test code = 2208) 25 MG/DL CREATININE (test code = 2214) 0.76 MG/DL eGFR AMER. (test code 101 ML/MIN/1.73 = 66604) eGFR NON- AMER. (test 87 ML/MIN/1.73 code = 21224) SODIUM (test code = 2231) 139 MEQ/L POTASSIUM (test code = 2228) 4.7 MEQ/L CHLORIDE (test code = 2215) 99 MEQ/L CARBON DIOXIDE (test code = 26 MEQ/L 2206) CALCIUM (test code = 2209) 9.4 MG/DL BASIC METABOLIC [id number] 00:00:00 Test Item Value Reference Range Interpretation Comments GLUCOSE (test code = 2217) 135 MG/DL BUN (test code = 2208) 25 MG/DL CREATININE (test code = 2214) 0.76 MG/DL eGFR AMER. (test code 101 ML/MIN/1.73 = 48311) eGFR NON- AMER. (test 87 ML/MIN/1.73 code = 46874) SODIUM (test code = 2231) 139 MEQ/L POTASSIUM (test code = 2228) 4.7 MEQ/L CHLORIDE (test code = 2215) 99 MEQ/L CARBON DIOXIDE (test code = 26 MEQ/L 2206) CALCIUM (test code = 2209) 9.4 MG/DL LIPID [id number] 00:00:00 Test Item Value Reference Range Interpretation Comments CHOLESTEROL (test code = 2210) 262 MG/DL TRIGLYCERIDES (test code = 2232) 300 MG/DL HDL CHOLESTEROL (test code = 2220) 36 MG/DL CALC LDL CHOL (test code = 2237) 166 MG/DL RISK RATIO LDL/HDL (test code = 4.61 RATIO 2238) LIPID [id number] 00:00:00 Test Item Value Reference Range Interpretation Comments CHOLESTEROL (test code = 2210) 262 MG/DL TRIGLYCERIDES (test code = 2232) 300 MG/DL HDL CHOLESTEROL (test code = 2220) 36 MG/DL CALC LDL CHOL (test code = 2237) 166 MG/DL RISK RATIO LDL/HDL (test code = 4.61 RATIO 2238) HEMOGLOBIN [id number] 00:00:00 Test Item Value Reference Range Interpretation Comments HEMOGLOBIN A1c (test code = 08697) 6.2 % HEMOGLOBIN [id number] 00:00:00 Test Item Value Reference Range Interpretation Comments HEMOGLOBIN A1c (test code = 55450) 6.2 % HEMOGLOBIN [id number] 00:00:00 Test Item Value Reference Range Interpretation Comments HEMOGLOBIN A1c (test code = 05057) 6.2 % [id number] 00:00:00 Test Item Value Reference Range Interpretation Comments TSH, THIRD GENERATION (test code 0.988 UIU/ML = 2821) [id number] 00:00:00 Test Item Value Reference Range Interpretation Comments TSH, THIRD GENERATION (test code 0.988 UIU/ML = 2821) [id number] 00:00:00 Test Item Value Reference Range Interpretation Comments TSH, THIRD GENERATION (test code 0.988 UIU/ML = 2821) COMPREHENSIVE METABOLIC [id number] 00:00:00 Test Item Value Reference Range Interpretation Comments GLUCOSE (test code = 2217) 109 MG/DL BUN (test code = 2208) 25 MG/DL CREATININE (test code = 2214) 0.78 MG/DL eGFR AMER. (test code 98 ML/MIN/1.73 = 49241) eGFR NON- AMER. (test 84 ML/MIN/1.73 code = 05811) CALC BUN/CREAT (test code = 32 RATIO [...] code = 2219) 25 U/L COMPREHENSIVE METABOLIC [id number] 00:00:00 Test Item Value Reference Range Interpretation Comments GLUCOSE (test code = 2217) 109 MG/DL BUN (test code = 2208) 25 MG/DL CREATININE (test code = 2214) 0.78 MG/DL eGFR AMER. (test code 98 ML/MIN/1.73 = 72036) eGFR NON- AMER. (test 84 ML/MIN/1.73 code = 91754) CALC BUN/CREAT (test code = 32 RATIO [...] (test code = 2219) 25 U/L LIPID [id number] 00:00:00 Test Item Value Reference Range Interpretation Comments CHOLESTEROL (test code = 2210) 295 MG/DL TRIGLYCERIDES (test code = 2232) 218 MG/DL HDL CHOLESTEROL (test code = 2220) 46 MG/DL CALC LDL CHOL (test code = 2237) 205 MG/DL RISK RATIO LDL/HDL (test code = 4.47 RATIO 2238) LIPID [id number] 00:00:00 Test Item Value Reference Range Interpretation Comments CHOLESTEROL (test code = 2210) 295 MG/DL TRIGLYCERIDES (test code = 2232) 218 MG/DL HDL CHOLESTEROL (test code = 2220) 46 MG/DL CALC LDL CHOL (test code = 2237) 205 MG/DL RISK RATIO LDL/HDL (test code = 4.47 RATIO 2238) HEMOGLOBIN [id number] 00:00:00 Test Item Value Reference Range Interpretation Comments HEMOGLOBIN A1c (test code = 83673) 7.0 % HEMOGLOBIN [id number] 00:00:00 Test Item Value Reference Range Interpretation Comments HEMOGLOBIN A1c (test code = 59476) 7.0 % HEMOGLOBIN [id number] 00:00:00 Test Item Value Reference Range Interpretation Comments HEMOGLOBIN A1c (test code = 21565) 7.0 % [id number] 00:00:00 Test Item Value Reference Range Interpretation Comments TSH, THIRD GENERATION (test code 0.565 UIU/ML = 2821) [id number] 00:00:00 Test Item Value Reference Range Interpretation Comments TSH, THIRD GENERATION (test code 0.565 UIU/ML = 2821) [id number] 00:00:00 Test Item Value Reference Range Interpretation Comments TSH, THIRD GENERATION (test code 0.565 UIU/ML = 2821) COMPREHENSIVE METABOLIC [id number] 00:00:00 Test Item Value Reference Range Interpretation Comments GLUCOSE (test code = 2217) 109 MG/DL BUN (test code = 2208) 25 MG/DL CREATININE (test code = 2214) 0.78 MG/DL eGFR AMER. (test code 98 ML/MIN/1.73 = 61740) eGFR NON- AMER. (test 84 ML/MIN/1.73 code = 17401) CALC BUN/CREAT (test code = 32 RATIO [...] code = 2219) 25 U/L COMPREHENSIVE METABOLIC [id number] 00:00:00 Test Item Value Reference Range Interpretation Comments GLUCOSE (test code = 2217) 109 MG/DL BUN (test code = 2208) 25 MG/DL CREATININE (test code = 2214) 0.78 MG/DL eGFR AMER. (test code 98 ML/MIN/1.73 = 76986) eGFR NON- AMER. (test 84 ML/MIN/1.73 code = 74657) CALC BUN/CREAT (test code = 32 RATIO [...] (test code = 2219) 25 U/L LIPID [id number] 00:00:00 Test Item Value Reference Range Interpretation Comments CHOLESTEROL (test code = 2210) 295 MG/DL TRIGLYCERIDES (test code = 2232) 218 MG/DL HDL CHOLESTEROL (test code = 2220) 46 MG/DL CALC LDL CHOL (test code = 2237) 205 MG/DL RISK RATIO LDL/HDL (test code = 4.47 RATIO 2238) LIPID [id number] 00:00:00 Test Item Value Reference Range Interpretation Comments CHOLESTEROL (test code = 2210) 295 MG/DL TRIGLYCERIDES (test code = 2232) 218 MG/DL HDL CHOLESTEROL (test code = 2220) 46 MG/DL CALC LDL CHOL (test code = 2237) 205 MG/DL RISK RATIO LDL/HDL (test code = 4.47 RATIO 2238) HEMOGLOBIN [id number] 00:00:00 Test Item Value Reference Range Interpretation Comments HEMOGLOBIN A1c (test code = 32329) 7.0 % HEMOGLOBIN [id number] 00:00:00 Test Item Value Reference Range Interpretation Comments HEMOGLOBIN A1c (test code = 08914) 7.0 % HEMOGLOBIN [id number] 00:00:00 Test Item Value Reference Range Interpretation Comments HEMOGLOBIN A1c (test code = 80167) 7.0 % [id number] 00:00:00 Test Item Value Reference Range Interpretation Comments TSH, THIRD GENERATION (test code 0.565 UIU/ML = 2821) [id number] 00:00:00 Test Item Value Reference Range Interpretation Comments TSH, THIRD GENERATION (test code 0.565 UIU/ML = 2821) [id number] 00:00:00 Test Item Value Reference Range Interpretation Comments TSH, THIRD GENERATION (test code 0.565 UIU/ML = 2821) COMPREHENSIVE METABOLIC [id number] 00:00:00 Test Item Value Reference Range Interpretation Comments GLUCOSE (test code = 2217) 109 MG/DL BUN (test code = 2208) 25 MG/DL CREATININE (test code = 2214) 0.78 MG/DL eGFR AMER. (test code 98 ML/MIN/1.73 = 82962) eGFR NON- AMER. (test 84 ML/MIN/1.73 code = 89219) CALC BUN/CREAT (test code = 32 RATIO [...] (test code = 2219) 25 U/L LIPID [id number] 00:00:00 Test Item Value Reference Range Interpretation Comments CHOLESTEROL (test code = 2210) 295 MG/DL TRIGLYCERIDES (test code = 2232) 218 MG/DL HDL CHOLESTEROL (test code = 2220) 46 MG/DL CALC LDL CHOL (test code = 2237) 205 MG/DL RISK RATIO LDL/HDL (test code = 4.47 RATIO 2238) HEMOGLOBIN [id number] 00:00:00 Test Item Value Reference Range Interpretation Comments HEMOGLOBIN A1c (test code = 79059) 7.0 % HEMOGLOBIN [id number] 00:00:00 Test Item Value Reference Range Interpretation Comments HEMOGLOBIN A1c (test code = 04763) 7.0 % [id number] 00:00:00 Test Item Value Reference Range Interpretation Comments TSH, THIRD GENERATION (test code 0.565 UIU/ML = 2821) [id number] 00:00:00 Test Item Value Reference Range Interpretation Comments TSH, THIRD GENERATION (test code 0.565 UIU/ML = 2821) COMPREHENSIVE METABOLIC [id number] 00:00:00 Test Item Value Reference Range Interpretation Comments GLUCOSE (test code = 2217) 109 MG/DL BUN (test code = 2208) 25 MG/DL CREATININE (test code = 2214) 0.78 MG/DL eGFR AMER. (test code 98 ML/MIN/1.73 = 68459) eGFR NON- AMER. (test 84 ML/MIN/1.73 code = 66713) CALC BUN/CREAT (test code = 32 RATIO [...] code = 2219) 25 U/L COMPREHENSIVE METABOLIC [id number] 00:00:00 Test Item Value Reference Range Interpretation Comments GLUCOSE (test code = 2217) 109 MG/DL BUN (test code = 2208) 25 MG/DL CREATININE (test code = 2214) 0.78 MG/DL eGFR AMER. (test code 98 ML/MIN/1.73 = 84335) eGFR NON- AMER. (test 84 ML/MIN/1.73 code = 04425) CALC BUN/CREAT (test code = 32 RATIO [...] (test code = 2219) 25 U/L LIPID [id number] 00:00:00 Test Item Value Reference Range Interpretation Comments CHOLESTEROL (test code = 2210) 295 MG/DL TRIGLYCERIDES (test code = 2232) 218 MG/DL HDL CHOLESTEROL (test code = 2220) 46 MG/DL CALC LDL CHOL (test code = 2237) 205 MG/DL RISK RATIO LDL/HDL (test code = 4.47 RATIO 2238) LIPID [id number] 00:00:00 Test Item Value Reference Range Interpretation Comments CHOLESTEROL (test code = 2210) 295 MG/DL TRIGLYCERIDES (test code = 2232) 218 MG/DL HDL CHOLESTEROL (test code = 2220) 46 MG/DL CALC LDL CHOL (test code = 2237) 205 MG/DL RISK RATIO LDL/HDL (test code = 4.47 RATIO 2238) HEMOGLOBIN [id number] 00:00:00 Test Item Value Reference Range Interpretation Comments HEMOGLOBIN A1c (test code = 44110) 7.0 % HEMOGLOBIN [id number] 00:00:00 Test Item Value Reference Range Interpretation Comments HEMOGLOBIN A1c (test code = 86385) 7.0 % HEMOGLOBIN [id number] 00:00:00 Test Item Value Reference Range Interpretation Comments HEMOGLOBIN A1c (test code = 66723) 7.0 % [id number] 00:00:00 Test Item Value Reference Range Interpretation Comments TSH, THIRD GENERATION (test code 0.565 UIU/ML = 2821) [id number] 00:00:00 Test Item Value Reference Range Interpretation Comments TSH, THIRD GENERATION (test code 0.565 UIU/ML = 2821) [id number] 00:00:00 Test Item Value Reference Range Interpretation Comments TSH, THIRD GENERATION (test code 0.565 UIU/ML = 2821) [id number] 00:00:00 Test Item Value Reference Range Interpretation Comments TSH, THIRD GENERATION (test code 0.379 UIU/ML = 2821) [id number] 00:00:00 Test Item Value Reference Range Interpretation Comments TSH, THIRD GENERATION (test code 0.379 UIU/ML = 2821) [id number] 00:00:00 Test Item Value Reference Range Interpretation Comments TSH, THIRD GENERATION (test code 0.379 UIU/ML = 2821) [id number] 00:00:00 Test Item Value Reference Range Interpretation Comments TSH, THIRD GENERATION (test code 0.379 UIU/ML = 2821) [id number] 00:00:00 Test Item Value Reference Range Interpretation Comments TSH, THIRD GENERATION (test code 0.379 UIU/ML = 2821) [id number] 00:00:00 Test Item Value Reference Range Interpretation Comments TSH, THIRD GENERATION (test code 0.379 UIU/ML = 2821) [id number] 00:00:00 Test Item Value Reference Range Interpretation Comments TSH, THIRD GENERATION (test code 0.379 UIU/ML = 2821) [id number] 00:00:00 Test Item Value Reference Range Interpretation Comments TSH, THIRD GENERATION (test code 0.379 UIU/ML = 2821) [id number] 00:00:00 Test Item Value Reference Range Interpretation Comments TSH, THIRD GENERATION (test code 0.379 UIU/ML = 2821) [id number] 00:00:00 Test Item Value Reference Range Interpretation Comments TSH, THIRD GENERATION (test code 0.379 UIU/ML = 2821) [id number] 00:00:00 Test Item Value Reference Range Interpretation Comments TSH, THIRD GENERATION (test code 0.379 UIU/ML = 2821) CULTURE, [id number] 00:00:00 Test Item Value Reference Range Interpretation Comments CULTURE, URINE (test SPECIMEN NUMBER: code = 65576) [id number] CULTURE, [id number] 00:00:00 Test Item Value Reference Range Interpretation Comments CULTURE, URINE (test SPECIMEN NUMBER: code = 66245) [id number] CULTURE, [id number] 00:00:00 Test Item Value Reference Range Interpretation Comments CULTURE, URINE (test SPECIMEN NUMBER: code = 30501) [id number] CULTURE, [id number] 00:00:00 Test Item Value Reference Range Interpretation Comments CULTURE, URINE (test SPECIMEN NUMBER: code = 32513) [id number] CULTURE, [id number] 00:00:00 Test Item Value Reference Range Interpretation Comments CULTURE, URINE (test SPECIMEN NUMBER: code = 96670) [id number] CULTURE, [id number] 00:00:00 Test Item Value Reference Range Interpretation Comments CULTURE, URINE (test SPECIMEN NUMBER: code = 97627) [id number] CULTURE, [id number] 00:00:00 Test Item Value Reference Range Interpretation Comments CULTURE, URINE (test SPECIMEN NUMBER: code = 10626) [id number] COMPREHENSIVE METABOLIC [id number] 00:00:00 Test Item Value Reference Range Interpretation Comments GLUCOSE (test code = 2217) 128 MG/DL BUN (test code = 2208) 26 MG/DL CREATININE (test code = 2214) 0.92 MG/DL eGFR AMER. (test code 81 ML/MIN/1.73 = 42874) eGFR NON- AMER. (test 70 ML/MIN/1.73 code = 28028) CALC BUN/CREAT (test code = 28 RATIO [...] code = 2219) 29 U/L COMPREHENSIVE METABOLIC [id number] 00:00:00 Test Item Value Reference Range Interpretation Comments GLUCOSE (test code = 2217) 128 MG/DL BUN (test code = 2208) 26 MG/DL CREATININE (test code = 2214) 0.92 MG/DL eGFR AMER. (test code 81 ML/MIN/1.73 = 65168) eGFR NON- AMER. (test 70 ML/MIN/1.73 code = 84383) CALC BUN/CREAT (test code = 28 RATIO [...] code = 2219) 29 U/L ACUTE HEPATITIS [id number] 00:00:00 Test Item Value Reference Range Interpretation Comments HEPATITIS A IgM (test code = NON-REACTIVE 43933) HEPATITIS B CORE IgM (test code NON-REACTIVE = 4644) HEPATITIS B SURF AG (test code = NON-REACTIVE 2739) HEPATITIS C ANTIBODY (test code NON-REACTIVE = 4675) INTERPRETATION HEPATITIS A: (NOTE) (test code = 2552) INTERPRETATION HEPATITIS B: (NOTE) (test code = 24080) INTERPRETATION HEPATITIS C: (NOTE) (test code = 82206) ACUTE HEPATITIS [id number] 00:00:00 Test Item Value Reference Range Interpretation Comments HEPATITIS A IgM (test code = NON-REACTIVE 39726) HEPATITIS B CORE IgM (test code NON-REACTIVE = 4644) HEPATITIS B SURF AG (test code = NON-REACTIVE 2739) HEPATITIS C ANTIBODY (test code NON-REACTIVE = 4675) INTERPRETATION HEPATITIS A: (NOTE) (test code = 2552) INTERPRETATION HEPATITIS B: (NOTE) (test code = 78313) INTERPRETATION HEPATITIS C: (NOTE) (test code = 12229) [id number] 00:00:00 Test Item Value Reference Range Interpretation Comments AMYLASE (test code = 2205) 32 U/L [id number] 00:00:00 Test Item Value Reference Range Interpretation Comments AMYLASE (test code = 2205) 32 U/L [id number] 00:00:00 Test Item Value Reference Range Interpretation Comments LIPASE (test code = 2058) 22 U/L [id number] 00:00:00 Test Item Value Reference Range Interpretation Comments LIPASE (test code = 2057) 22 U/L [id number] 00:00:00 Test Item Value Reference Range Interpretation Comments LIPASE (test code = 2057) 22 U/L COMPREHENSIVE METABOLIC [id number] 00:00:00 Test Item Value Reference Range Interpretation Comments GLUCOSE (test code = 2217) 128 MG/DL BUN (test code = 2208) 26 MG/DL CREATININE (test code = 2214) 0.92 MG/DL eGFR AMER. (test code 81 ML/MIN/1.73 = 48744) eGFR NON- AMER. (test 70 ML/MIN/1.73 code = 12612) CALC BUN/CREAT (test code = 28 RATIO [...] code = 2219) 29 U/L COMPREHENSIVE METABOLIC [id number] 00:00:00 Test Item Value Reference Range Interpretation Comments GLUCOSE (test code = 2217) 128 MG/DL BUN (test code = 2208) 26 MG/DL CREATININE (test code = 2214) 0.92 MG/DL eGFR AMER. (test code 81 ML/MIN/1.73 = 83900) eGFR NON- AMER. (test 70 ML/MIN/1.73 code = 20381) CALC BUN/CREAT (test code = 28 RATIO [...] code = 2219) 29 U/L ACUTE HEPATITIS [id number] 00:00:00 Test Item Value Reference Range Interpretation Comments HEPATITIS A IgM (test code = NON-REACTIVE 39397) HEPATITIS B CORE IgM (test code NON-REACTIVE = 4644) HEPATITIS B SURF AG (test code = NON-REACTIVE 2739) HEPATITIS C ANTIBODY (test code NON-REACTIVE = 4675) INTERPRETATION HEPATITIS A: (NOTE) (test code = 2552) INTERPRETATION HEPATITIS B: (NOTE) (test code = 55667) INTERPRETATION HEPATITIS C: (NOTE) (test code = 78467) ACUTE HEPATITIS [id number] 00:00:00 Test Item Value Reference Range Interpretation Comments HEPATITIS A IgM (test code = NON-REACTIVE 69348) HEPATITIS B CORE IgM (test code NON-REACTIVE = 4644) HEPATITIS B SURF AG (test code = NON-REACTIVE 2739) HEPATITIS C ANTIBODY (test code NON-REACTIVE = 4675) INTERPRETATION HEPATITIS A: (NOTE) (test code = 2552) INTERPRETATION HEPATITIS B: (NOTE) (test code = 16559) INTERPRETATION HEPATITIS C: (NOTE) (test code = 84117) [id number] 00:00:00 Test Item Value Reference Range Interpretation Comments AMYLASE (test code = 2205) 32 U/L [id number] 00:00:00 Test Item Value Reference Range Interpretation Comments AMYLASE (test code = 2205) 32 U/L [id number] 00:00:00 Test Item Value Reference Range Interpretation Comments LIPASE (test code = 2058) 22 U/L [id number] 00:00:00 Test Item Value Reference Range Interpretation Comments LIPASE (test code = 2058) 22 U/L [id number] 00:00:00 Test Item Value Reference Range Interpretation Comments LIPASE (test code = 2057) 22 U/L COMPREHENSIVE METABOLIC [id number] 00:00:00 Test Item Value Reference Range Interpretation Comments GLUCOSE (test code = 2217) 128 MG/DL BUN (test code = 2208) 26 MG/DL CREATININE (test code = 2214) 0.92 MG/DL eGFR AMER. (test code 81 ML/MIN/1.73 = 14355) eGFR NON- AMER. (test 70 ML/MIN/1.73 code = 25909) CALC BUN/CREAT (test code = 28 RATIO [...] code = 2219) 29 U/L ACUTE HEPATITIS [id number] 00:00:00 Test Item Value Reference Range Interpretation Comments HEPATITIS A IgM (test code = NON-REACTIVE 41444) HEPATITIS B CORE IgM (test code NON-REACTIVE = 4644) HEPATITIS B SURF AG (test code = NON-REACTIVE 4272) HEPATITIS C ANTIBODY (test code NON-REACTIVE = 5668) INTERPRETATION HEPATITIS A: (NOTE) (test code = 2552) INTERPRETATION HEPATITIS B: (NOTE) (test code = 17026) INTERPRETATION HEPATITIS C: (NOTE) (test code = 73699) [id number] 00:00:00 Test Item Value Reference Range Interpretation Comments AMYLASE (test code = 5) 32 U/L [id number] 00:00:00 Test Item Value Reference Range Interpretation Comments LIPASE (test code = 2057) 22 U/L [id number] 00:00:00 Test Item Value Reference Range Interpretation Comments LIPASE (test code = 2057) 22 U/L COMPREHENSIVE METABOLIC [id number] 00:00:00 Test Item Value Reference Range Interpretation Comments GLUCOSE (test code = 2217) 128 MG/DL BUN (test code = 2208) 26 MG/DL CREATININE (test code = 2214) 0.92 MG/DL eGFR AMER. (test code 81 ML/MIN/1.73 = 05493) eGFR NON- AMER. (test 70 ML/MIN/1.73 code = 39379) CALC BUN/CREAT (test code = 28 RATIO [...] code = 2219) 29 U/L COMPREHENSIVE METABOLIC [id number] 00:00:00 Test Item Value Reference Range Interpretation Comments GLUCOSE (test code = 2217) 128 MG/DL BUN (test code = 2208) 26 MG/DL CREATININE (test code = 2214) 0.92 MG/DL eGFR AMER. (test code 81 ML/MIN/1.73 = 23282) eGFR NON- AMER. (test 70 ML/MIN/1.73 code = 30525) CALC BUN/CREAT (test code = 28 RATIO [...] code = 2219) 29 U/L ACUTE HEPATITIS [id number] 00:00:00 Test Item Value Reference Range Interpretation Comments HEPATITIS A IgM (test code = NON-REACTIVE 48327) HEPATITIS B CORE IgM (test code NON-REACTIVE = 4644) HEPATITIS B SURF AG (test code = NON-REACTIVE 2739) HEPATITIS C ANTIBODY (test code NON-REACTIVE = 4675) INTERPRETATION HEPATITIS A: (NOTE) (test code = 2552) INTERPRETATION HEPATITIS B: (NOTE) (test code = 96025) INTERPRETATION HEPATITIS C: (NOTE) (test code = 06077) ACUTE HEPATITIS [id number] 00:00:00 Test Item Value Reference Range Interpretation Comments HEPATITIS A IgM (test code = NON-REACTIVE 35154) HEPATITIS B CORE IgM (test code NON-REACTIVE = 4644) HEPATITIS B SURF AG (test code = NON-REACTIVE 2739) HEPATITIS C ANTIBODY (test code NON-REACTIVE = 4675) INTERPRETATION HEPATITIS A: (NOTE) (test code = 2552) INTERPRETATION HEPATITIS B: (NOTE) (test code = 46937) INTERPRETATION HEPATITIS C: (NOTE) (test code = 44583) [id number] 00:00:00 Test Item Value Reference Range Interpretation Comments AMYLASE (test code = 2205) 32 U/L [id number] 00:00:00 Test Item Value Reference Range Interpretation Comments AMYLASE (test code = 2205) 32 U/L [id number] 00:00:00 Test Item Value Reference Range Interpretation Comments LIPASE (test code = 2058) 22 U/L [id number] 00:00:00 Test Item Value Reference Range Interpretation Comments LIPASE (test code = 2058) 22 U/L [id number] 00:00:00 Test Item Value Reference Range Interpretation Comments LIPASE (test code = 2058) 22 U/L [id number] 00:00:00 Test Item Value Reference Range Interpretation Comments TSH, THIRD GENERATION (test code 4.890 UIU/ML = 2821) [id number] 00:00:00 Test Item Value Reference Range Interpretation Comments TSH, THIRD GENERATION (test code 4.890 UIU/ML = 2821) [id number] 00:00:00 Test Item Value Reference Range Interpretation Comments TSH, THIRD GENERATION (test code 4.890 UIU/ML = 2821) COMPREHENSIVE METABOLIC [id number] 00:00:00 Test Item Value Reference Range Interpretation Comments GLUCOSE (test code = 2217) 121 MG/DL BUN (test code = 2208) 40 MG/DL CREATININE (test code = 2214) 1.48 MG/DL eGFR AMER. (test code 45 ML/MIN/1.73 = 01452) eGFR NON- AMER. (test 39 ML/MIN/1.73 code = 60767) CALC BUN/CREAT (test code = 27 RATIO [...] code = 2219) 20 U/L COMPREHENSIVE METABOLIC [id number] 00:00:00 Test Item Value Reference Range Interpretation Comments GLUCOSE (test code = 2217) 121 MG/DL BUN (test code = 2208) 40 MG/DL CREATININE (test code = 2214) 1.48 MG/DL eGFR AMER. (test code 45 ML/MIN/1.73 = 92730) eGFR NON- AMER. (test 39 ML/MIN/1.73 code = 04236) CALC BUN/CREAT (test code = 27 RATIO [...] ALT (test code = 2219) 20 U/L [id number] 00:00:00 Test Item Value Reference Range Interpretation Comments TSH, THIRD GENERATION (test code 4.890 UIU/ML = 2821) [id number] 00:00:00 Test Item Value Reference Range Interpretation Comments TSH, THIRD GENERATION (test code 4.890 UIU/ML = 2821) [id number] 00:00:00 Test Item Value Reference Range Interpretation Comments TSH, THIRD GENERATION (test code 4.890 UIU/ML = 2821) COMPREHENSIVE METABOLIC [id number] 00:00:00 Test Item Value Reference Range Interpretation Comments GLUCOSE (test code = 2217) 121 MG/DL BUN (test code = 2208) 40 MG/DL CREATININE (test code = 2214) 1.48 MG/DL eGFR AMER. (test code 45 ML/MIN/1.73 = 60360) eGFR NON- AMER. (test 39 ML/MIN/1.73 code = 27379) CALC BUN/CREAT (test code = 27 RATIO [...] code = 2219) 20 U/L COMPREHENSIVE METABOLIC [id number] 00:00:00 Test Item Value Reference Range Interpretation Comments GLUCOSE (test code = 2217) 121 MG/DL BUN (test code = 2208) 40 MG/DL CREATININE (test code = 2214) 1.48 MG/DL eGFR AMER. (test code 45 ML/MIN/1.73 = 12533) eGFR NON- AMER. (test 39 ML/MIN/1.73 code = 95852) CALC BUN/CREAT (test code = 27 RATIO [...] ALT (test code = 2219) 20 U/L [id number] 00:00:00 Test Item Value Reference Range Interpretation Comments TSH, THIRD GENERATION (test code 4.890 UIU/ML = 2821) [id number] 00:00:00 Test Item Value Reference Range Interpretation Comments TSH, THIRD GENERATION (test code 4.890 UIU/ML = 2821) COMPREHENSIVE METABOLIC [id number] 00:00:00 Test Item Value Reference Range Interpretation Comments GLUCOSE (test code = 2217) 121 MG/DL BUN (test code = 2208) 40 MG/DL CREATININE (test code = 2214) 1.48 MG/DL eGFR AMER. (test code 45 ML/MIN/1.73 = 06142) eGFR NON- AMER. (test 39 ML/MIN/1.73 code = 16533) CALC BUN/CREAT (test code = 27 RATIO [...] ALT (test code = 2219) 20 U/L [id number] 00:00:00 Test Item Value Reference Range Interpretation Comments TSH, THIRD GENERATION (test code 4.890 UIU/ML = 2821) [id number] 00:00:00 Test Item Value Reference Range Interpretation Comments TSH, THIRD GENERATION (test code 4.890 UIU/ML = 2821) [id number] 00:00:00 Test Item Value Reference Range Interpretation Comments TSH, THIRD GENERATION (test code 4.890 UIU/ML = 2821) COMPREHENSIVE METABOLIC [id number] 00:00:00 Test Item Value Reference Range Interpretation Comments GLUCOSE (test code = 2217) 121 MG/DL BUN (test code = 2208) 40 MG/DL CREATININE (test code = 2214) 1.48 MG/DL eGFR AMER. (test code 45 ML/MIN/1.73 = 20211) eGFR NON- AMER. (test 39 ML/MIN/1.73 code = 14100) CALC BUN/CREAT (test code = 27 RATIO [...] code = 2219) 20 U/L COMPREHENSIVE METABOLIC [id number] 00:00:00 Test Item Value Reference Range Interpretation Comments GLUCOSE (test code = 2217) 121 MG/DL BUN (test code = 2208) 40 MG/DL CREATININE (test code = 2214) 1.48 MG/DL eGFR AMER. (test code 45 ML/MIN/1.73 = 71625) eGFR NON- AMER. (test 39 ML/MIN/1.73 code = 15239) CALC BUN/CREAT (test code = 27 RATIO [...] (test code = 2219) 20 U/L LIPID [id number] 00:00:00 Test Item Value Reference Range Interpretation Comments CHOLESTEROL (test code = 2210) 261 MG/DL TRIGLYCERIDES (test code = 2232) 165 MG/DL HDL CHOLESTEROL (test code = 2220) 58 MG/DL CALC LDL CHOL (test code = 2237) 170 MG/DL RISK RATIO LDL/HDL (test code = 2.93 RATIO 2238) LIPID [id number] 00:00:00 Test Item Value Reference Range Interpretation Comments CHOLESTEROL (test code = 2210) 261 MG/DL TRIGLYCERIDES (test code = 2232) 165 MG/DL HDL CHOLESTEROL (test code = 2220) 58 MG/DL CALC LDL CHOL (test code = 2237) 170 MG/DL RISK RATIO LDL/HDL (test code = 2.93 RATIO 2238) CBC W/AUTO [id number] 00:00:00 Test Item Value Reference Range Interpretation [...] code = 1015) 378 K/UL CBC W/AUTO [id number] 00:00:00 Test Item Value Reference Range Interpretation [...] code = 1015) 378 K/UL CBC W/AUTO [id number] 00:00:00 Test Item Value Reference Range Interpretation [...] (test code = 1015) 378 K/UL HEMOGLOBIN [id number] 00:00:00 Test Item Value Reference Range Interpretation Comments HEMOGLOBIN A1c (test code = 62182) 6.4 % HEMOGLOBIN [id number] 00:00:00 Test Item Value Reference Range Interpretation Comments HEMOGLOBIN A1c (test code = 18885) 6.4 % HEMOGLOBIN [id number] 00:00:00 Test Item Value Reference Range Interpretation Comments HEMOGLOBIN A1c (test code = 83511) 6.4 % [id number] 00:00:00 Test Item Value Reference Range Interpretation Comments TSH (test code = 2821) 5.290 UIU/ML [id number] 00:00:00 Test Item Value Reference Range Interpretation Comments TSH (test code = 2821) 5.290 UIU/ML [id number] 00:00:00 Test Item Value Reference Range Interpretation Comments TSH (test code = 2821) 5.290 UIU/ML LIPID [id number] 00:00:00 Test Item Value Reference Range Interpretation Comments CHOLESTEROL (test code = 2210) 261 MG/DL TRIGLYCERIDES (test code = 2232) 165 MG/DL HDL CHOLESTEROL (test code = 2220) 58 MG/DL CALC LDL CHOL (test code = 2237) 170 MG/DL RISK RATIO LDL/HDL (test code = 2.93 RATIO 2238) LIPID [id number] 00:00:00 Test Item Value Reference Range Interpretation Comments CHOLESTEROL (test code = 2210) 261 MG/DL TRIGLYCERIDES (test code = 2232) 165 MG/DL HDL CHOLESTEROL (test code = 2220) 58 MG/DL CALC LDL CHOL (test code = 2237) 170 MG/DL RISK RATIO LDL/HDL (test code = 2.93 RATIO 2238) CBC W/AUTO [id number] 00:00:00 Test Item Value Reference Range Interpretation [...] code = 1015) 378 K/UL CBC W/AUTO [id number] 00:00:00 Test Item Value Reference Range Interpretation [...] code = 1015) 378 K/UL CBC W/AUTO [id number] 00:00:00 Test Item Value Reference Range Interpretation [...] (test code = 1015) 378 K/UL HEMOGLOBIN [id number] 00:00:00 Test Item Value Reference Range Interpretation Comments HEMOGLOBIN A1c (test code = 48351) 6.4 % HEMOGLOBIN [id number] 00:00:00 Test Item Value Reference Range Interpretation Comments HEMOGLOBIN A1c (test code = 43135) 6.4 % HEMOGLOBIN [id number] 00:00:00 Test Item Value Reference Range Interpretation Comments HEMOGLOBIN A1c (test code = 58279) 6.4 % [id number] 00:00:00 Test Item Value Reference Range Interpretation Comments TSH (test code = 2821) 5.290 UIU/ML [id number] 00:00:00 Test Item Value Reference Range Interpretation Comments TSH (test code = 2821) 5.290 UIU/ML [id number] 00:00:00 Test Item Value Reference Range Interpretation Comments TSH (test code = 2821) 5.290 UIU/ML LIPID [id number] 00:00:00 Test Item Value Reference Range Interpretation Comments CHOLESTEROL (test code = 2210) 261 MG/DL TRIGLYCERIDES (test code = 2232) 165 MG/DL HDL CHOLESTEROL (test code = 2220) 58 MG/DL CALC LDL CHOL (test code = 2237) 170 MG/DL RISK RATIO LDL/HDL (test code = 2.93 RATIO 2238) CBC W/AUTO [id number] 00:00:00 Test Item Value Reference Range Interpretation [...] code = 1015) 378 K/UL CBC W/AUTO [id number] 00:00:00 Test Item Value Reference Range Interpretation [...] (test code = 1015) 378 K/UL HEMOGLOBIN [id number] 00:00:00 Test Item Value Reference Range Interpretation Comments HEMOGLOBIN A1c (test code = 18229) 6.4 % HEMOGLOBIN [id number] 00:00:00 Test Item Value Reference Range Interpretation Comments HEMOGLOBIN A1c (test code = 48278) 6.4 % [id number] 00:00:00 Test Item Value Reference Range Interpretation Comments TSH (test code = 2821) 5.290 UIU/ML [id number] 00:00:00 Test Item Value Reference Range Interpretation Comments TSH (test code = 2821) 5.290 UIU/ML LIPID [id number] 00:00:00 Test Item Value Reference Range Interpretation Comments CHOLESTEROL (test code = 2210) 261 MG/DL TRIGLYCERIDES (test code = 2232) 165 MG/DL HDL CHOLESTEROL (test code = 2220) 58 MG/DL CALC LDL CHOL (test code = 2237) 170 MG/DL RISK RATIO LDL/HDL (test code = 2.93 RATIO 2238) LIPID [id number] 00:00:00 Test Item Value Reference Range Interpretation Comments CHOLESTEROL (test code = 2210) 261 MG/DL TRIGLYCERIDES (test code = 2232) 165 MG/DL HDL CHOLESTEROL (test code = 2220) 58 MG/DL CALC LDL CHOL (test code = 2237) 170 MG/DL RISK RATIO LDL/HDL (test code = 2.93 RATIO 2238) CBC W/AUTO [id number] 00:00:00 Test Item Value Reference Range Interpretation [...] code = 1015) 378 K/UL CBC W/AUTO [id number] 00:00:00 Test Item Value Reference Range Interpretation [...] code = 1015) 378 K/UL CBC W/AUTO [id number] 00:00:00 Test Item Value Reference Range Interpretation [...] (test code = 1015) 378 K/UL HEMOGLOBIN [id number] 00:00:00 Test Item Value Reference Range Interpretation Comments HEMOGLOBIN A1c (test code = 33313) 6.4 % HEMOGLOBIN [id number] 00:00:00 Test Item Value Reference Range Interpretation Comments HEMOGLOBIN A1c (test code = 36322) 6.4 % HEMOGLOBIN [id number] 00:00:00 Test Item Value Reference Range Interpretation Comments HEMOGLOBIN A1c (test code = 79534) 6.4 % [id number] 00:00:00 Test Item Value Reference Range Interpretation Comments TSH (test code = 2821) 5.290 UIU/ML [id number] 00:00:00 Test Item Value Reference Range Interpretation Comments TSH (test code = 2821) 5.290 UIU/ML [id number] 00:00:00 Test Item Value Reference Range Interpretation [...] code = 2821) 1.030 UIU/ML COMPREHENSIVE METABOLIC [id number] 00:00:00 Test Item Value Reference Range Interpretation Comments GLUCOSE (test code = 2217) 106 MG/DL BUN (test code = 2208) 23 MG/DL CREATININE (test code = 2214) 0.66 MG/DL eGFR AMER. (test code 114 ML/MIN/1.73 = 87986) eGFR NON- AMER. (test 99 ML/MIN/1.73 code = 36046) CALC BUN/CREAT (test code = 35 RATIO [...] code = 2219) 31 U/L COMPREHENSIVE METABOLIC [id number] 00:00:00 Test Item Value Reference Range Interpretation Comments GLUCOSE (test code = 2217) 106 MG/DL BUN (test code = 2208) 23 MG/DL CREATININE (test code = 2214) 0.66 MG/DL eGFR AMER. (test code 114 ML/MIN/1.73 = 98784) eGFR NON- AMER. (test 99 ML/MIN/1.73 code = 96471) CALC BUN/CREAT (test code = 35 RATIO [...] code = 2821) 0.335 UIU/ML COMPREHENSIVE METABOLIC [id number] 00:00:00 Test Item Value Reference Range Interpretation Comments GLUCOSE (test code = 2217) 106 MG/DL BUN (test code = 2208) 23 MG/DL CREATININE (test code = 2214) 0.66 MG/DL eGFR AMER. (test code 114 ML/MIN/1.73 = 65656) eGFR NON- AMER. (test 99 ML/MIN/1.73 code = 63992) CALC BUN/CREAT (test code = 35 RATIO [...] code = 2219) 31 U/L COMPREHENSIVE METABOLIC [id number] 00:00:00 Test Item Value Reference Range Interpretation Comments GLUCOSE (test code = 2217) 106 MG/DL BUN (test code = 2208) 23 MG/DL CREATININE (test code = 2214) 0.66 MG/DL eGFR AMER. (test code 114 ML/MIN/1.73 = 88956) eGFR NON- AMER. (test 99 ML/MIN/1.73 code = 50872) CALC BUN/CREAT (test code = 35 RATIO [...] code = 2821) 0.335 UIU/ML COMPREHENSIVE METABOLIC [id number] 00:00:00 Test Item Value Reference Range Interpretation Comments GLUCOSE (test code = 2217) 106 MG/DL BUN (test code = 2208) 23 MG/DL CREATININE (test code = 2214) 0.66 MG/DL eGFR AMER. (test code 114 ML/MIN/1.73 = 93371) eGFR NON- AMER. (test 99 ML/MIN/1.73 code = 47472) CALC BUN/CREAT (test code = 35 RATIO [...] code = 2821) 0.335 UIU/ML COMPREHENSIVE METABOLIC [id number] 00:00:00 Test Item Value Reference Range Interpretation Comments GLUCOSE (test code = 2217) 106 MG/DL BUN (test code = 2208) 23 MG/DL CREATININE (test code = 2214) 0.66 MG/DL eGFR AMER. (test code 114 ML/MIN/1.73 = 55484) eGFR NON- AMER. (test 99 ML/MIN/1.73 code = 09620) CALC BUN/CREAT (test code = 35 RATIO [...] code = 2219) 31 U/L COMPREHENSIVE METABOLIC [id number] 00:00:00 Test Item Value Reference Range Interpretation Comments GLUCOSE (test code = 2217) 106 MG/DL BUN (test code = 2208) 23 MG/DL CREATININE (test code = 2214) 0.66 MG/DL eGFR AMER. (test code 114 ML/MIN/1.73 = 48467) eGFR NON- AMER. (test 99 ML/MIN/1.73 code = 65370) CALC BUN/CREAT (test code = 35 RATIO [...] code = 2821) 0.335 UIU/ML COMPREHENSIVE METABOLIC [id number] 00:00:00 Test Item Value Reference Range Interpretation Comments GLUCOSE (test code = 2217) 103 MG/DL BUN (test code = 2208) 15 MG/DL CREATININE (test code = 2214) 0.77 MG/DL eGFR AMER. (test code 101 ML/MIN/1.73 = 36109) eGFR NON- AMER. (test 87 ML/MIN/1.73 code = 69773) CALC BUN/CREAT (test code = 19 RATIO [...] code = 2219) 24 U/L COMPREHENSIVE METABOLIC [id number] 00:00:00 Test Item Value Reference Range Interpretation Comments GLUCOSE (test code = 2217) 103 MG/DL BUN (test code = 2208) 15 MG/DL CREATININE (test code = 2214) 0.77 MG/DL eGFR AMER. (test code 101 ML/MIN/1.73 = 21416) eGFR NON- AMER. (test 87 ML/MIN/1.73 code = 55174) CALC BUN/CREAT (test code = 19 RATIO [...] code = 2821) 0.424 UIU/ML COMPREHENSIVE METABOLIC [id number] 00:00:00 Test Item Value Reference Range Interpretation Comments GLUCOSE (test code = 2217) 103 MG/DL BUN (test code = 2208) 15 MG/DL CREATININE (test code = 2214) 0.77 MG/DL eGFR AMER. (test code 101 ML/MIN/1.73 = 29718) eGFR NON- AMER. (test 87 ML/MIN/1.73 code = 06585) CALC BUN/CREAT (test code = 19 RATIO [...] code = 2219) 24 U/L COMPREHENSIVE METABOLIC [id number] 00:00:00 Test Item Value Reference Range Interpretation Comments GLUCOSE (test code = 2217) 103 MG/DL BUN (test code = 2208) 15 MG/DL CREATININE (test code = 2214) 0.77 MG/DL eGFR AMER. (test code 101 ML/MIN/1.73 = 40827) eGFR NON- AMER. (test 87 ML/MIN/1.73 code = 35308) CALC BUN/CREAT (test code = 19 RATIO [...] code = 2821) 0.424 UIU/ML COMPREHENSIVE METABOLIC [id number] 00:00:00 Test Item Value Reference Range Interpretation Comments GLUCOSE (test code = 2217) 103 MG/DL BUN (test code = 2208) 15 MG/DL CREATININE (test code = 2214) 0.77 MG/DL eGFR AMER. (test code 101 ML/MIN/1.73 = 91891) eGFR NON- AMER. (test 87 ML/MIN/1.73 code = 00857) CALC BUN/CREAT (test code = 19 RATIO [...] code = 2821) 0.424 UIU/ML COMPREHENSIVE METABOLIC [id number] 00:00:00 Test Item Value Reference Range Interpretation Comments GLUCOSE (test code = 2217) 103 MG/DL BUN (test code = 2208) 15 MG/DL CREATININE (test code = 2214) 0.77 MG/DL eGFR AMER. (test code 101 ML/MIN/1.73 = 06185) eGFR NON- AMER. (test 87 ML/MIN/1.73 code = 71347) CALC BUN/CREAT (test code = 19 RATIO [...] code = 2219) 24 U/L COMPREHENSIVE METABOLIC [id number] 00:00:00 Test Item Value Reference Range Interpretation Comments GLUCOSE (test code = 2217) 103 MG/DL BUN (test code = 2208) 15 MG/DL CREATININE (test code = 2214) 0.77 MG/DL eGFR AMER. (test code 101 ML/MIN/1.73 = 10719) eGFR NON- AMER. (test 87 ML/MIN/1.73 code = 25187) CALC BUN/CREAT (test code = 19 RATIO [...] CALCULATED T7 (FTI) (test code = 1.37 1280) TSH (test code = 2821) 0.424 UIU/ML THYROID II PROFILE (T3U, T4, T7, TSH)[id number] 00:00:00 Test Item Value Reference Range Interpretation Comments T3 UPTAKE (test code = 2817) 35.1 % T4 (THYROXINE) (test code = 3.9 UG/DL 2819) CALCULATED T7 (FTI) (test code = 1.37 2820) TSH (test code = 2821) 0.424 UIU/ML CULTURE, [id number] 00:00:00 Test Item Value Reference Range Interpretation Comments CULTURE, URINE (test SPECIMEN NUMBER: code = 30626) [id number] CULTURE, [id number] 00:00:00 Test Item Value Reference Range Interpretation Comments CULTURE, URINE (test SPECIMEN NUMBER: code = 06789) [id number] CULTURE, [id number] 00:00:00 Test Item Value Reference Range Interpretation Comments CULTURE, URINE (test SPECIMEN NUMBER: code = 89545) [id number] CULTURE, [id number] 00:00:00 Test Item Value Reference Range Interpretation Comments CULTURE, URINE (test SPECIMEN NUMBER: code = 95012) [id number] CULTURE, [id number] 00:00:00 Test Item Value Reference Range Interpretation Comments CULTURE, URINE (test SPECIMEN NUMBER: code = 99824) [id number] CULTURE, [id number] 00:00:00 Test Item Value Reference Range Interpretation Comments CULTURE, URINE (test SPECIMEN NUMBER: code = 33995) [id number] CULTURE, [id number] 00:00:00 Test Item Value Reference Range Interpretation Comments CULTURE, URINE (test SPECIMEN NUMBER: code = 90003) [id number] CULTURE, [id number] 00:00:00 Test Item Value Reference Range Interpretation Comments CULTURE, URINE (test SPECIMEN NUMBER: code = 85714) [id number] CULTURE, [id number] 00:00:00 Test Item Value Reference Range Interpretation Comments CULTURE, URINE (test SPECIMEN NUMBER: code = 31205) [id number] CULTURE, [id number] 00:00:00 Test Item Value Reference Range Interpretation Comments CULTURE, URINE (test SPECIMEN NUMBER: code = 75518) [id number] CULTURE, [id number] 00:00:00 Test Item Value Reference Range Interpretation Comments CULTURE, URINE (test SPECIMEN NUMBER: code = 37923) [id number] CULTURE, [id number] 00:00:00 Test Item Value Reference Range Interpretation Comments CULTURE, URINE (test SPECIMEN NUMBER: code = 66630) [id number] CULTURE, [id number] 00:00:00 Test Item Value Reference Range Interpretation Comments CULTURE, URINE (test SPECIMEN NUMBER: code = 91546) [id number] CULTURE, [id number] 00:00:00 Test Item Value Reference Range Interpretation Comments CULTURE, URINE (test SPECIMEN NUMBER: code = 14841) [id number]
[2022-02-22] MEDS ORDERED: MORPHINE 4 MG/ML SYR ONE ×2 (12:27→14:35)
[2022-02-22] MEDS ORDERED: ONDANSETRON 4 MG/2 ML VIAL ONE (12:27)
[2022-02-22 12:33] LABS: Absolute Lymphocytes (CBC) 2.8 K/uL (0.7-4.9); Hematocrit 37.2 % (36.0-45.0); Lymphocytes % 37.8 % (15.3-44.8); MCV 91.6 fL (80-100); MPV 6.8 fL (7.6-11.3); RBC Red Blood Cell Count 4.06 M/uL (3.86-4.86)
[2022-02-22 12:48] LABS: Albumin 3.9 g/dL (3.4-5.0); Bilirubin Total 0.2 mg/dL (0.2-1.0); Potassium 3.9 mmol/L (3.5-5.1)
[2022-02-22] MEDS ORDERED: NA CHLORIDE 0.9% 50 ML IV ONE (12:58)
[2022-02-22] MEDS ORDERED: DIPHENHYDRAMINE 50 MG/ML VIAL ONE (12:58)
[2022-02-22] MEDS ORDERED: METOCLOPRAMIDE 10 MG/2mL INJ ONE (12:58)
[2022-02-22] MEDS ORDERED: NA CHLORIDE 0.9% 500 ML ONE (12:58)
[2022-02-22 13:34] LABS: Urine Blood Negative (Negative); Urine Glucose Negative (Negative); Urine Protein Negative (Negative); Urine Specific Gravity 1.025 (1.005-1.030)
--- NOTE | 2022-02-22 15:19 | EDPHYS ---
Physician Documentation [facility] Name: Jaimie Amanda Age: 61 yrs Sex: Female : 1960 Arrival Date: 02/22/2022 Time: 12:04 Bed 8 Private MD: ED Physician Villa Byrd HPI: 02/22 15:16 This 61 yrs old Female presents to ER via Ambulatory with complaints of Abdominal Pain. jmm 15:16 The patient presents with abdominal pain. Onset: The symptoms/episode began/occurred jmm today. The symptoms do not radiate. Is a 61-year-old female with history of alcoholism, chronic abdominal pain, hypertension the presents emerged part with complaints of epigastric right-sided abdominal pain. Patient states having same character of pain multiple times in the past. Currently denies any vomiting or diarrhea. Denies fever.. Historical: - Allergies: 12:14 No Known Allergies; ph - PMHx: 12:14 Alcoholism; Anxiety; Chronic Abdominal Pain; Hypertensive disorder; Hypothyroidism; low ph NA; NIDDM; - PSHx: 12:14 Thyroidectomy; ph - Immunization history:: Adult Immunizations unknown. - Social history:: Smoking status: Patient reports the use of cigarette tobacco products, denies chronic smoking, but will smoke occasionally. ROS: 15:16 Constitutional: Negative for fever, chills, and weight loss, Cardiovascular: Negative jmm for chest pain, palpitations, and edema, Respiratory: Negative for shortness of breath, cough, wheezing, and pleuritic chest pain. 15:16 Abdomen/GI: Positive for abdominal pain. 15:16 All other systems are negative. Exam: 15:16 Constitutional: This is a well developed, well nourished patient who is awake, alert, jmm and in no acute distress. Head/Face: atraumatic. Eyes: EOMI, no conjunctival erythema appreciated ENT: Moist Mucus Membranes Neck: Trachea midline, Supple Chest/axilla: Normal chest wall appearance and motion. Cardiovascular: Regular rate and rhythm. No edema appreciated Respiratory: Normal respirations, no respiratory distress appreciated 15:16 Back: Normal ROM Skin: General appearance color normal MS/ Extremity: Moves all extremities, no obvious deformities appreciated, no edema noted to the lower extremities Neuro: Awake and alert Psych: Behavior is normal, Mood is normal, Patient is cooperative and pleasant 15:16 Abdomen/GI: Inspection: abdomen appears normal, Bowel sounds: normal, Palpation: soft, mild abdominal tenderness, in the right upper quadrant. Vital Signs: 12:13 BP 163 / 81; Pulse 68; Resp 18; Temp 97.7; Pulse Ox 99% on R/A; Weight 68.04 kg; Height ph 5 ft. 7 in. (170.18 cm); 13:01 BP 145 / 59; Pulse 63; Resp 16; Pulse Ox 98% on R/A; db 14:30 BP 178 / 73; Pulse 65; Resp 18; Pulse Ox 98% on R/A; Pain 9/10; db 15:33 BP 174 / 83; Pulse 65; Resp 16; Pulse Ox 95% on R/A; db 12:13 Body Mass Index 23.49 (68.04 kg, 170.18 cm) ph MDM: 12:16 Patient medically screened. [facility] 15:18 Data reviewed: vital signs, nurses notes. Counseling: I had a detailed discussion with [facility] the patient and/or guardian regarding: the historical points, exam findings, and any diagnostic results supporting the discharge/admit diagnosis, lab results, the need for outpatient follow up, to return to the emergency department if symptoms worsen or persist or if there are any questions or concerns that arise at home. ED course: Pain is alleviated in the ED. Patient advised follow with her PCP and otherwise given strict return precautions. Patient understood agrees plan of care.. 02/22 12:17 Order name: CBC with Diff; Complete Time: 12:37 [facility] 02/22 12:17 Order name: CMP; Complete Time: 12:50 [facility] 02/22 12:17 Order name: Lipase; Complete Time: 12:50 [facility] 02/22 13:34 Order name: Urine Dipstick-Ancillary; Complete Time: 13:35 [facility] 02/22 12:17 Order name: IV Saline Lock; Complete Time: 12:33 [facility] 02/22 12:17 Order name: Labs collected and sent; Complete Time: 12:33 [facility] 02/22 12:17 Order name: Urine Dipstick-Ancillary (obtain specimen); Complete Time: 14:08 [facility] Administered Medications: 12:30 Drug: Zofran (Ondansetron) 4 mg Route: IVP; Site: right antecubital; db 13:14 Follow up: Response: No adverse reaction db 12:30 Drug: morphine 4 mg Route: IVP; Infused Over: 4 mins; Site: right antecubital; db 13:15 Follow up: Response: No adverse reaction db 13:08 Drug: Reglan (metoCLOPramide) 10 mg Route: IVP; Site: right antecubital; db 14:08 Follow up: Response: No adverse reaction db 13:08 Drug: diphenhydrAMINE 25 mg Route: IVP; Site: right antecubital; db 14:08 Follow up: Response: No adverse reaction db 13:08 Drug: NS 0.9% 500 ml Route: IV; Rate: bolus; Site: right antecubital; db 15:31 Follow up: Response: No adverse reaction; IV Status: Completed infusion; IV Intake: db 500ml 14:40 Drug: morphine 4 mg Route: IM; Site: right ventrogluteal; db 15:31 Follow up: Response: No adverse reaction db Disposition: 18:27 Co-signature as Attending Physician, iVlla Byrd MD. rn Disposition Summary: 02/22/22 15:19 Discharge Ordered Location: [facility] Condition: Stable [facility] Diagnosis - Chronic Abdominal Pain [facility] Followup: [facility] - With: Private Physician - When: 2 - 3 days - Reason: Recheck today's complaints, Continuance of care, Re-evaluation by your physician Discharge Instructions: - Discharge Summary Sheet [facility] - Abdominal Pain, Adult [facility] Forms: - Medication Reconciliation Form [facility] - Thank You Letter [facility] - Antibiotic Education [facility] - Prescription Opioid Use [facility] Prescriptions: - ondansetron 4 mg Oral tablet,disintegrating - take 1 tablet by ORAL route every 4-6 hours As needed; 20 tablet; Refills: 0, [facility] Product Selection Permitted Signatures: Dispatcher [employer] René Goff PA PA m Villa Byrd MD MD rn Hall, Patricia, RN RN ph Benton, Danielle, RN RN db
--- NOTE | 2022-02-22 15:19 | ER ---
Nurse's Notes [facility] Name: Jaimie Amanda Age: 61 yrs Sex: Female : 1960 Arrival Date: 02/22/2022 Time: 12:04 Bed 8 Private MD: Diagnosis: Chronic Abdominal Pain Presentation: 02/22 12:13 Chief complaint: Patient states: R sided abdominal pain that started at approx 5 this ph morning, also reports nausea, denies V/D, fever or urinary symptoms. Coronavirus screen: Vaccine status: Patient reports receiving the 2nd dose of the covid vaccine. Ebola Screen: No symptoms or risks identified at this time. Initial Sepsis Screen: Does the patient meet any 2 criteria? No. Patient's initial sepsis screen is negative. Does the patient have a suspected source of infection? No. Patient's initial sepsis screen is negative. Risk Assessment: Do you want to hurt yourself or someone else? Patient reports no desire to harm self or others. Onset of symptoms was February 22, 2022. 12:13 Method Of Arrival: Ambulatory ph 12:13 Acuity: ZHEN 3 ph Triage Assessment: 12:14 General: Appears in no apparent distress. uncomfortable, Behavior is cooperative. Pain: ph Complains of pain in right upper quadrant and right lower quadrant. Historical: - Allergies: 12:14 No Known Allergies; ph - PMHx: 12:14 Alcoholism; Anxiety; Chronic Abdominal Pain; Hypertensive disorder; Hypothyroidism; low ph NA; NIDDM; - PSHx: 12:14 Thyroidectomy; ph - Immunization history:: Adult Immunizations unknown. - Social history:: Smoking status: Patient reports the use of cigarette tobacco products, denies chronic smoking, but will smoke occasionally. Screenin:34 Fall Risk No fall in past 12 months (0 pts). No secondary diagnosis (0 pts). IV access db (20 points). Ambulatory Aid- None/Bed Rest/Nurse Assist (0 pts). Gait- Normal/Bed Rest/Wheelchair (0 pts) Mental Status- Oriented to own ability (0 pts). Total Rubio Fall Scale indicates No Risk (0-24 pts). 15:00 [facility] ED Fall Risk Assessment (Adult) History of falling in the last 3 months, db including since admission No falls in past 3 months (0 pts) Confusion or Disorientation No (0 pts) Intoxicated or Sedated No (0 pts) Impaired Gait No (0 pts) Mobility Assist Device Used No (0 pt) Altered Elimination No (0 pt) Score/Fall Risk Level 0 - 2 = Low Risk Oriented to surroundings. Abuse screen: Denies threats or abuse. Denies injuries from another. Nutritional screening: No deficits noted. Tuberculosis screening: No symptoms or risk factors identified. Assessment: 12:30 Reassessment: Patient appears in no apparent distress at this time. Patient and/or db family updated on plan of care and expected duration. Pain level reassessed. Patient is alert, oriented x 3, equal unlabored respirations, skin warm/dry/pink. right side abdominal pain with nausea denies vomiting. started today. General: Appears in no apparent distress. comfortable, Behavior is calm, cooperative, appropriate for age. Pain: Complains of pain in abdomen and right lower quadrant and right upper quadrant. Neuro: No deficits noted. Level of Consciousness is awake, alert, obeys commands, Oriented to person, place, time, situation, Appropriate for age. Cardiovascular: No deficits noted. Respiratory: No deficits noted. Airway is patent Respiratory effort is even, unlabored, Respiratory pattern is regular, symmetrical. GI: Bowel sounds present X 4 quads. Abd is soft Abdomen is tender to palpation in right upper quadrant and right lower quadrant. : No deficits noted. No signs and/or symptoms were reported regarding the genitourinary system. EENT: No deficits noted. No signs and/or symptoms were reported regarding the EENT system. 13:05 Reassessment: Patient appears in no apparent distress at this time. No changes from db previously documented assessment. Patient and/or family updated on plan of care and expected duration. Pain level reassessed. states still has nausea. 14:45 Reassessment: Patient appears in no apparent distress at this time. Patient and/or db family updated on plan of care and expected duration. Pain level reassessed. Patient is alert, oriented x 3, equal unlabored respirations, skin warm/dry/pink. PATIENT ambulatory to restroom. Complains of abdominal pain still. See MAR for morphine administration. 15:00 Reassessment: Patient appears in no apparent distress at this time. Patient and/or db family updated on plan of care and expected duration. Pain level reassessed. Patient is alert, oriented x 3, equal unlabored respirations, skin warm/dry/pink. Patient states feeling better. Patient states symptoms have improved. 15:33 Reassessment: Patient appears in no apparent distress at this time. Patient and/or db family updated on plan of care and expected duration. Pain level reassessed. Patient is alert, oriented x 3, equal unlabored respirations, skin warm/dry/pink. Patient states feeling better. Vital Signs: 12:13 BP 163 / 81; Pulse 68; Resp 18; Temp 97.7; Pulse Ox 99% on R/A; Weight 68.04 kg; Height ph 5 ft. 7 in. (170.18 cm); 13:01 BP 145 / 59; Pulse 63; Resp 16; Pulse Ox 98% on R/A; db 14:30 BP 178 / 73; Pulse 65; Resp 18; Pulse Ox 98% on R/A; Pain 9/10; db 15:33 BP 174 / 83; Pulse 65; Resp 16; Pulse Ox 95% on R/A; db 12:13 Body Mass Index 23.49 (68.04 kg, 170.18 cm) ph ED Course: 12:04 Patient arrived in ED. rg4 12:07 René Brown PA is PHCP. [facility] 12:07 Villa Byrd MD is Attending Physician. [facility] 12:09 Stephie Collazo, CATY is Primary Nurse. db 12:14 Triage completed. ph 12:15 Arm band placed on Patient placed in an exam room, on a stretcher. ph 12:28 Inserted saline lock: 22 gauge in right antecubital area, using aseptic technique. db Blood collected. 15:00 Patient has correct armband on for positive identification. Bed in low position. Call db light in reach. Side rails up X 1. Client placed on continuous cardiac and pulse oximetry monitoring. NIBP monitoring applied. Warm blanket given. 15:00 No provider procedures requiring assistance completed. IV discontinued, intact, db bleeding controlled, No redness/swelling at site. Administered Medications: 12:30 Drug: Zofran (Ondansetron) 4 mg Route: IVP; Site: right antecubital; db 13:14 Follow up: Response: No adverse reaction db 12:30 Drug: morphine 4 mg Route: IVP; Infused Over: 4 mins; Site: right antecubital; db 13:15 Follow up: Response: No adverse reaction db 13:08 Drug: Reglan (metoCLOPramide) 10 mg Route: IVP; Site: right antecubital; db 14:08 Follow up: Response: No adverse reaction db 13:08 Drug: diphenhydrAMINE 25 mg Route: IVP; Site: right antecubital; db 14:08 Follow up: Response: No adverse reaction db 13:08 Drug: NS 0.9% 500 ml Route: IV; Rate: bolus; Site: right antecubital; db 15:31 Follow up: Response: No adverse reaction; IV Status: Completed infusion; IV Intake: db 500ml 14:40 Drug: morphine 4 mg Route: IM; Site: right ventrogluteal; db 15:31 Follow up: Response: No adverse reaction db Medication: 13:01 VIS not applicable for this client. db Intake: 15:31 IV: 500ml; Total: 500ml. db Outcome: 15:00 Discharged to home ambulatory. db 15:00 Condition: stable 15:00 Discharge instructions given to patient, Instructed on discharge instructions, follow up and referral plans. Prescriptions given X 1. 15:19 Discharge ordered by MD. canela 15:49 Patient left the ED. db Signatures: René Brown PA PA jmm Hall, Patricia, RN RN Alejandra Machuca rg4 Stephie Collazo RN RN db Corrections: (The following items were deleted from the chart) 15:34 15:00 BP 124 / 75; Pulse 70bpm; Resp 16bpm; Pulse Ox 100% RA; db db
[2022-02-22 15:54] VITALS: TEMP 97.7
[2022-02-22 15:57] VITALS: BP 174/83; O2SAT 95
== END 2022-02-22 15:49 | disposition home or self-care (01) ==
LOC: ER 12:03
DX: G89.29 Other chronic pain (principal); R10.9 Unspecified abdominal pain; F10.20 Alcohol dependence, uncomplicated; I10 Essential (primary) hypertension; F17.210 Nicotine dependence, cigarettes, uncomplicated
CPT/HCPCS: 85025; 36415; 81003; 83690; 80053; J2765; J1200; J7040; J2405; 96361; 96372; 96374; 96375; 99284

== ENCOUNTER 2022-02-24 10:14 | Emergency (ER) | payer OTHER ==
--- OUTSIDE RECORDS SUMMARY | 2022-02-24 10:26 | XMS REPORT | Continuity of Care Document ---
:1960 Author Organization [facility] t Address [address] [place] [address] Care Team Providers Name Role Phone Sharpless Primary Care Physician MATT SIMPSON Attending Clinician Unavailable MATT SIMPSON Attending Clinician Unavailable Doctor Unassigned, [place] Attending Clinician Unavailable WALLY KRISHNAMURTHY Attending Clinician Unavailable Gramm Natacha CLARK Attending Clinician Payers Payer Name Policy Type Policy Number Effective Date Expiration Date Sarina castelan [facility] [id number] 2017 00:00:00 PLUS Problems This patient has [...] Comments Source Alcohol intake 2016-05-01 2016-05-01 Current [facility] es 00:00:00 00:00:00 non-drinker of Medical nter alcohol (finding) Sex Ass[birth year] At [birth year] [facility] 00:00:00 00:00:00 [facility] Smoking Status Start Date Stop Date Source Current every day smoker 2016-05-01 00:00:00 [facility] Medications Ordered Filled Start Stop Current [...] [facility]jel[facility] OXcarbazepi 2017-0 Yes 600mg Q.[id number] Take [address] [facility] [address] ne 2-23 [id number] [facility] (TR[facility]AL) 10:23: 3D mouth 3 Med ical 600 MG 59 (three) Center tablet times daily. PARoxetine 2017-0 Yes 40mg QD Take [address] (PAXIL) 40 2-23 [facility] MG tablet 10:23: nightly. [facility] [address] [place] OXcarbazepi 2017-0 Yes 600mg Q.07870705 Take [address] ne 2-23 [id number] [facility] (TRILEPTAL) 10:23: 3D mouth 3 Med ical 600 MG 59 (three) Center tablet times daily. PARoxetine 2017-0 Yes 40mg QD Take [address] (PAXIL) 40 2-23 [facility] tablet 10:23: nightly. [address] OXcarbazepi 2017-0 Yes 600mg Q.66948302 Take [address] ne 2-23 [id number] [facility] (TRILEPTAL) 10:23: 3D mouth 3 Med ical 600 MG 59 (three) Center tablet times daily. PARoxetine 2017-0 Yes 40mg QD Take [address] (PAXIL) 40 2-23 by [facility] MG tablet 10:23: nightly. [address] OXcarbazepi 2017-0 Yes 600mg Q.99810718 Take [address] ne 2-23 [id number] mg by [facility] (TRILEPTAL) 10:23: 3D mouth 3 Med ical 600 MG 59 (three) Center tablet times daily. OXcarbazepi 2017-0 Yes 600mg Q.25052957 Take [address] ne 2-23 [id number] [facility] (TRILEPTAL) 10:23: 3D mouth 3 Med ical 600 MG 59 (three) Center tablet times daily. PARoxetine 2017-0 Yes 40mg QD Take [address] (PAXIL) 40 2-23 [facility] MG tablet 10:23: nightly. [facility] [address] [place] PARoxetine 2017-0 Yes 40mg QD Take [address] (PAXIL) 40 2-23 [facility] tablet 10:23: nightly. [address] OXcarbazepi 2017-0 Yes 600mg Q.08647120 Take [address] ne 2-23 [id number] [facility] (TRILEPTAL) 10:23: 3D mouth 3 Med ical 600 MG 59 (three) Center tablet times daily. PARoxetine 2017-0 Yes 40mg QD Take [address] (PAXIL) 40 2-23 [facility] tablet 10:23: nightly. [address] 2017-0 Yes 600mg Q.62030567 Take [address] ne 2-23 [id number] [facility] (TRILEPTAL) 10:23: 3D mouth 3 Med ical 600 MG 59 (three) Center tablet times daily. PARoxetine 2017-0 Yes 40mg QD Take [address] (PAXIL) 40 2-23 [facility] MG tablet 10:23: nightly. [address] 2017-0 Yes 600mg Q.27751219 Take [address] ne 2-23 [id number] [facility] (TRILEPTAL) 10:23: 3D mouth 3 Med ical 600 MG 59 (three) Center tablet times daily. PARoxetine 2017-0 Yes 40mg QD Take [address] (PAXIL) 40 2-23 [facility] MG tablet 10:23: nightly. [address] 2017-0 Yes 600mg Q.92347288 Take [address] ne 2-23 [id number] [facility] (TRILEPTAL) 10:23: 3D mouth 3 Med ical 600 MG 59 (three) Center tablet times daily. PARoxetine 2017-0 Yes 40mg QD Take [address] (PAXIL) 40 2-23 by [facility] MG tablet 10:23: nightly. [address] OXcarbazepi 2017-0 Yes 600mg Q.12732303 Take [address] ne 2-23 [id number] [facility] by [facility] (TRILEPTAL) 10:23: 3D mouth 3 Med ical 600 MG 59 (three) Center tablet times daily. PARoxetine 2017-0 Yes 40mg QD Take [address] (PAXIL) 40 2-23 by [facility] MG tablet 10:23: nightly. [address] OXcarbazepi 2017-0 Yes 600mg Q.14505999 Take [address] ne 2-23 [id number] mg [facility] (TRILEPTAL) 10:23: 3D mouth 3 Med ical 600 MG 59 (three) Center tablet times daily. OXcarbazepi 2017-0 Yes 600mg Q.21177884 Take [address] ne 2-23 [id number] mg by [facility] (TRILEPTAL) 10:23: 3D mouth 3 Med ical 600 MG 59 (three) Center tablet times daily. PARoxetine 2017-0 Yes 40mg QD Take [address] (PAXIL) 40 2-23 by mouth [facility] MG tablet 10:23: nightly. Medi [facility]jel[facility] Center OXcarbazepi 2017-0 Yes 600mg Q.59413765 Take [address] ne 2-23 [id number] mg by [facility] (TRILEPTAL) 10:23: 3D mouth 3 Med ical 600 MG 59 (three) Center tablet times daily. PARoxetine 2017-0 Yes 40mg QD Take [address] (PAXIL) 40 2-23 by mouth [facility] MG tablet 10:23: nightly. [facility] anjelica 59 Center OXcarbazepi 2017-0 Yes 600mg Q.87963199 Take [address] ne 2-23 [id number] mg by [facility] (TRILEPTAL) 10:23: 3D mouth 3 Med ical 600 MG 59 (three) Center tablet times daily. PARoxetine 2017-0 Yes 40mg QD Take [address] (PAXIL) 40 2-23 by mouth [facility] MG tablet 10:23: nightly. [facility] anjelica 59 Center PARoxetine 2017-0 Yes 40mg QD Take [address] (PAXIL) 40 2-23 by mouth [facility] MG tablet 10:23: nightly. [facility] anjelica 59 Center OXcarbazepi 2017-0 Yes 600mg Q.02087907 Take [address] ne 2-23 [id number] mg by [facility] (TRILEPTAL) 10:23: 3D mouth 3 Med ical 600 MG 59 (three) Center tablet times daily. PARoxetine 2017-0 Yes 40mg QD Take [address] (PAXIL) 40 2-23 by mouth [facility] MG tablet 10:23: nightly. [facility]i [facility] OXcarbazepi 2017-0 Yes 600mg Q.95657747 Take [address] ne 2-23 8350076403 mg by [facility] (TRILEPTAL) 10:23: 3D mouth [...] Goal Plan of Care Note [code = 57517-6] Goal Plan of Care Note [code = 00517-9] Goal Plan of Care Note [code = 72467-3] Goal Plan of Care Note [code = 92258-6] Goal Plan of Care Note [code = 56457-9] Goal Plan of Care Note [code = 54835-3] Goal Plan of Care Note [code = 21215-4] Goal Plan of Care Note [code = 35697-5] Goal Plan of Care Note [code = 65488-9] Goal Plan of Care Note [code = 27397-5] Goal Plan of Care Note [code = 62127-8] Goal Plan of Care Note [code = 47571-1] Goal Plan of Care Note [code = 16124-3] Goal Plan of Care Note [code = 09393-3] Goal Plan of Care Note [code = 36456-3] Goal Plan of Care Note [code = 84473-2] Goal Plan of Care Note [code = 44281-6] Goal Plan of Care Note [code = 87117-8] Goal Plan of Care Note [code = 79749-9] Goal Plan of Care Note [code = 41432-8] Goal Plan of Care Note [code = 73735-1] Goal Plan of Care Note [code = 83507-8] Goal Plan of Care Note [code = 60752-2] Goal Plan of Care Note [code = 71857-8] Goal Plan of Care Note [code = 63604-5] Goal Plan of Care Note [code = 06977-7] Goal Plan of Care Note [code = 49981-2] Goal Plan of Care Note [code = 37012-3] Goal Plan of Care Note [code = 56648-6] Goal Plan of Care Note [code = 73509-9] Goal Plan of Care Note [code = 55511-4] Goal Plan of Care Note [code = 75120-8] Goal Plan of Care Note [code = 24250-0] Goal Plan of Care Note [code = 63354-1] Goal Plan of Care Note [code = 69972-3] Goal Plan of Care Note [code = 16632-4] Goal Plan of Care Note [code = 97511-7] Goal Plan of Care Note [code = 29088-5] Goal Plan of Care Note [code = 18496-3] Goal Plan of Care Note [code = 90159-1] Goal Plan of Care Note [code = 95237-4] Goal Plan of Care Note [code = 13856-8] Goal Plan of Care Note [code = 16163-0] Goal Plan of Care Note [code = 04195-2] Goal Plan of Care Note [code = 65342-2] Goal Plan of Care Note [code = 25061-1] Goal Plan of Care Note [code = 55598-9] Goal Plan of Care Note [code = 15771-1] Goal Plan of Care Note [code = 30992-8] Goal Plan of Care Note [code = 17634-2] Goal Plan of Care Note [code = 01890-2] Goal Plan of Care Note [code = 83941-9] Goal Plan of Care Note [code = 43169-6] Goal Plan of Care Note [code = 47335-6] Goal Plan of Care Note [code = 87646-4] Goal Plan of Care Note [code = 09146-4] Goal Plan of Care Note [code = 09475-2] Goal Plan of Care Note [code = 85236-3] Goal Plan of Care Note [code = 16461-6] Goal Plan of Care Note [code = 30298-1] Goal Plan of Care Note [code = 91027-6] Goal Plan of Care Note [code = 57137-9] Goal Plan of Care Note [code = 06254-3] Goal Plan of Care Note [code = 51472-0] Goal Plan of Care Note [code = 95819-9] Goal Plan of Care Note [code = 81266-6] Goal Plan of Care Note [code = 39313-8] Goal Plan of Care Note [code = 52894-5] Goal Plan of Care Note [code = 45271-9] Goal Plan of Care Note [code = 40170-1] Goal Plan of Care Note [code = 56694-3] Goal Plan of Care Note [code = 40742-5] Goal Plan of Care Note [code = 23842-4] Goal Plan of Care Note [code = 26216-4] Goal Plan of Care Note [code = 55973-4] Goal Plan of Care Note [code = 36905-8] Goal Plan of Care Note [code = 62699-9] Goal Plan of Care Note [code = 27507-2] Goal Plan of Care Note [code = 06893-0] Goal Plan of Care Note [code = 33879-7] Goal Plan of Care Note [code = 71724-3] Goal Plan of Care Note [code = 46477-9] Goal Plan of Care Note [code = 43138-1] Goal Plan of Care Note [code = 17268-0] Goal Plan of Care Note [code = 36659-1] Goal Plan of Care Note [code = 71278-1] Goal Plan of Care Note [code = 77178-3] Goal Plan of Care Note [code = 05695-1] Goal Plan of Care Note [code = 94559-5] Goal Plan of Care Note [code = 28339-3] Goal Plan of Care Note [code = 20626-6] Goal Plan of Care Note [code = 52297-5] Goal Plan of Care Note [code = 10800-9] Goal Plan of Care Note [code = 16639-2] Goal Plan of Care Note [code = 67911-8] Goal Plan of Care Note [code = 26419-0] Goal Plan of Care Note [code = 47465-4] Goal Plan of Care Note [code = 87358-9] Goal Plan of Care Note [code = 91748-1] Goal Plan of Care Note [code = 39221-8] Goal Plan of Care Note [code = 11591-8] Goal Plan of Care Note [code = 07871-3] Goal Plan of Care Note [code = 33610-8] Goal Plan of Care Note [code = 81853-3] Goal Plan of Care Note [code = 80867-9] Goal Plan of Care Note [code = 52720-5] Goal Plan of Care Note [code = 05548-3] Goal Plan of Care Note [code = 51216-4] Goal Plan of Care Note [code = 60698-1] Goal Plan of Care Note [code = 75032-0] Goal Plan of Care Note [code = 68642-1] Goal Plan of Care Note [code = 22115-8] Goal Plan of Care Note [code = 09164-8] Goal Plan of Care Note [code = 67975-5] Goal Plan of Care Note [code = 43499-9] Goal Plan of Care Note [code = 12251-9] Goal Plan of Care Note [code = 57846-5] Goal Plan of Care Note [code = 04402-8] Goal Plan of Care Note [code = 54831-5] Goal Plan of Care Note [code = 00306-4] Goal Plan of Care Note [code = 80080-1] Goal Plan of Care Note [code = 32682-3] Goal Plan of Care Note [code = 96050-4] Goal Plan of Care Note [code = 74731-1] Goal Plan of Care Note [code = 65896-7] Goal Plan of Care Note [code = 84780-4] Goal Plan of Care Note [code = 73498-6] Goal Plan of Care Note [code = 30712-5] Goal Plan of Care Note [code = 14943-7] Goal Plan of Care Note [code = 85681-6] Goal Plan of Care Note [code = 81189-0] Goal Plan of Care Note [code = 47045-8] Goal Plan of Care Note [code = 74504-0] Goal Plan of Care Note [code = 10383-5] Goal Plan of Care Note [code = 96896-1] Goal Plan of Care Note [code = 17378-9] Goal Plan of Care Note [code = 88184-6] Goal Plan of Care Note [code = 86267-9] Goal Plan of Care Note [code = 80521-4] Goal Plan of Care Note [code = 71509-6] Goal Plan of Care Note [code = 00349-6] Goal Plan of Care Note [code = 52278-9] Goal Plan of Care Note [code = 69485-9] Goal Plan of Care Note [code = 76609-7] Goal Plan of Care Note [code = 34029-7] Goal Plan of Care Note [code = 59665-3] Goal Plan of Care Note [code = 46488-1] Goal Plan of Care Note [code = 50706-3] Goal Plan of Care Note [code = 96506-6] Goal Plan of Care Note [code = 67224-6] Goal Plan of Care Note [code = 78257-0] Goal Plan of Care Note [code = 67115-5] Goal Plan of Care Note [code = 68459-4] Goal Plan of Care Note [code = 37592-1] Goal Plan of Care Note [code = 52593-9] Goal Plan of Care Note [code = 60279-4] Goal Plan of Care Note [code = 74950-3] Goal Plan of Care Note [code = 23885-7] Goal Plan of Care Note [code = 53415-3] Goal Plan of Care Note [code = 46827-8] Goal Plan of Care Note [code = 73818-5] Goal Plan of Care Note [code = 43181-1] Goal Plan of Care Note [code = 29124-3] Goal Plan of Care Note [code = 59567-2] Goal Plan of Care Note [code = 13927-5] Goal Plan of Care Note [code = 72004-9] Goal Plan of Care Note [code = 38555-4] Goal Plan of Care Note [code = 56452-8] Goal Plan of Care Note [code = 19146-7] Goal Plan of Care Note [code = 06221-4] Goal Plan of Care Note [code = 12440-8] Goal Plan of Care Note [code = 68251-9] Goal Plan of Care Note [code = 73981-0] Goal Plan of Care Note [code = 39012-3] Goal Plan of Care Note [code = 01378-1] Goal Plan of Care Note [code = 71287-4] Goal Plan of Care Note [code = 17558-1] Goal Plan of Care Note [code = 97370-2] Goal Plan of Care Note [code = 09329-0] Goal Plan of Care Note [code = 43858-0] Goal Plan of Care Note [code = 15752-4] Goal Plan of Care Note [code = 39796-3] Goal Plan of Care Note [code = 17333-0] Goal Plan of Care Note [code = 99892-4] Goal Plan of Care Note [code = 44560-2] Goal Plan of Care Note [code = 17334-6] Goal Plan of Care Note [code = 10991-7] Goal Plan of Care Note [code = 32040-7] Goal Plan of Care Note [code = 11960-2] Goal Plan of Care Note [code = 61149-3] Goal Plan of Care Note [code = 00879-6] Goal Plan of Care Note [code = 91072-5] Goal Plan of Care Note [code = 64818-8] Goal Plan of Care Note [code = 14354-9] Goal Plan of Care Note [code = 25466-4] Goal Plan of Care Note [code = 10681-0] Goal Plan of Care Note [code = 83610-1] Goal Plan of Care Note [code = 37049-7] Goal Plan of Care Note [code = 55757-9] Goal Plan of Care Note [code = 37864-7] Goal Plan of Care Note [code = 00445-7] Goal Plan of Care Note [code = 94076-3] Goal Plan of Care Note [code = 99332-9] Goal Plan of Care Note [code = 49584-3] Goal Plan of Care Note [code = 47218-8] Goal Plan of Care Note [code = 95653-1] Goal Plan of Care Note [code = 25768-4] Goal Plan of Care Note [code = 57482-5] Encounters Start End Encounter Admission Attending Care Care Encounter Source Date/Time Date/Time Type Type Clinicians Facility Department ID 2021[facility]06[facility]01 [facility] [id number] [place] 01:36:29 [id number] [facility] 2022-02-11 2022-02-11 Outpatient SFA SFA [id number] 022 Cristian 09:04:48 09:04:48 1206 F Jerman 2022-02-10 2022-02-10 Outpatient SFA SFA [id number] 022 Cristian 09:29:34 09:29:34 1205 F Jerman 2022-02-10 2022-02-10 Outpatient [id number]- [id number] [id number] 00:00:00 00:00:00 Visit 4089-4cab 089-4cab-9 -9dy5-a6t bf5-j1j423 493ixfm80 bafa93 2022-01-10 2022-01-10 Outpatient SFA SFA [id number] 022 Cristian 09:16:14 09:16:14 1104 F Jerman 2022-01-10 2022-01-10 Outpatient t5siwjz7- [id number] f2 accaa6-a 00:00:00 00:00:00 Visit aca9-4c83 ca9-4c83-a -m3iu-kf5 7eb-bc13f3 0j1m186x0 f032f9 2021-12-19 2021-12-19 Outpatient SFA SFA 21043-3 022 Cristian 16:11:31 16:11:31 1013 F Jerman 2021-12-19 2021-12-19 Outpatient [id number]- [id number] 466cae-a 00:00:00 00:00:00 Visit y314-293t 770-441f-a -adae-62b amelia-62bace znbel86cc fd81af 2021-09-17 2021-09-17 Outpatient cjb8ahyr- [id number] aa f1xcjz-1 00:00:00 00:00:00 Visit 935a-4f50 35a-4f50-b -d13w-z0q 77d-c2ba85 z536228l2 1264a6 2020-08-03 2020-08-03 Outpatient MATT VÁSQUEZ [facility] [id number] [facility] 10:00:00 10:00:[address] [facility] 2020-07-25 2020-07-25 [facility] Doctor FISH [id number] 00:00:00 00:00:00 Only Unassigned, BK 350.1.13.10 [facility] 4.2.7.2.686 [id number] 2019-09-26 2019-09-26 Outpatient R KELTONANEL, [facility] [id number] [facility] 16:00:00 16:00:00 WALLY pat [facility] 2018-10-21 2018-10-21 Telephone Gramm, [facility] [id number] 00:00:00 00:00:00 Natacha Nguyen 350.1.13.10 Ade 4.2.7.2.686 Proffarzanehio [id number] [facility] [address] Building Results Test Description Test Time Test Comments Results Result Comments Source TSH, THIRD GENERATION 2021-06-27 05:15:49 Test Item Value Reference Range Interpretation Comme nts TSH, THIRD GENERATION (test code = 2821) 2.080 UIU/ML 0.400-4.100 HEMOGLOBIN [id number] 03:46:00 Test Item Value Reference Range Interpretation Comments HEMOGLOBIN A1c (test 6.6 % 4.2-5.6 H [employer] [employer] [facility] code = 05417) ASSOCIATION IDELINES FOR HGB A1C: PREDIABETES/INC REASED [...] INDICATED, ALL TESTING PER FORMED ATCLINICAL PATH [facility], I MD. [address] [place] [address] 7 3302 LABORATORY DIRE CTOR: DIANA RUSS M.D. CLIA NUMBER [id number] [place]. [id number] LIPID [id number] 02:59:52 Test Item Value Reference Range Interpretation [...] MOREINFORMATION , SEE CLIENT ANNOUNCE MENT AT [email or web address] RISK RATIO LDL/HDL 4.02 RATIO <3.22 H (test code = 2238) [id number] 00:00:00 Test Item Value Reference Range Interpretation Comments TSH, THIRD GENERATION (test code 2.080 UIU/ML = 2821) [id number] 00:00:00 Test Item Value Reference Range Interpretation Comments TSH, THIRD GENERATION (test code 2.080 UIU/ML = 2821) [id number] 00:00:00 Test Item Value Reference Range Interpretation Comments TSH, THIRD GENERATION (test code 2.080 UIU/ML = 2821) LIPID [id number] 00:00:00 Test Item Value Reference Range Interpretation Comments CHOLESTEROL (test code = 2210) 292 MG/DL TRIGLYCERIDES (test code = 2232) 184 MG/DL HDL CHOLESTEROL (test code = 2220) 51 MG/DL CALC LDL CHOL (test code = 2237) 205 MG/DL RISK RATIO LDL/HDL (test code = 4.02 RATIO 2238) LIPID [id number] 00:00:00 Test Item Value Reference Range Interpretation Comments CHOLESTEROL (test code = 2210) 292 MG/DL TRIGLYCERIDES (test code = 2232) 184 MG/DL HDL CHOLESTEROL (test code = 2220) 51 MG/DL CALC LDL CHOL (test code = 2237) 205 MG/DL RISK RATIO LDL/HDL (test code = 4.02 RATIO 2238) HEMOGLOBIN [id number] 00:00:00 Test Item Value Reference Range Interpretation Comments HEMOGLOBIN A1c (test code = 69854) 6.6 % HEMOGLOBIN [id number] 00:00:00 Test Item Value Reference Range Interpretation Comments HEMOGLOBIN A1c (test code = 95991) 6.6 % HEMOGLOBIN [id number] 00:00:00 Test Item Value Reference Range Interpretation Comments HEMOGLOBIN A1c (test code = 19165) 6.6 % [id number] 00:00:00 Test Item Value Reference Range Interpretation Comments TSH, THIRD GENERATION (test code 2.080 UIU/ML = 2821) [id number] 00:00:00 Test Item Value Reference Range Interpretation Comments TSH, THIRD GENERATION (test code 2.080 UIU/ML = 2821) [id number] 00:00:00 Test Item Value Reference Range Interpretation Comments TSH, THIRD GENERATION (test code 2.080 UIU/ML = 2821) LIPID [id number] 00:00:00 Test Item Value Reference Range Interpretation Comments CHOLESTEROL (test code = 2210) 292 MG/DL TRIGLYCERIDES (test code = 2232) 184 MG/DL HDL CHOLESTEROL (test code = 2220) 51 MG/DL CALC LDL CHOL (test code = 2237) 205 MG/DL RISK RATIO LDL/HDL (test code = 4.02 RATIO 2238) LIPID [id number] 00:00:00 Test Item Value Reference Range Interpretation Comments CHOLESTEROL (test code = 2210) 292 MG/DL TRIGLYCERIDES (test code = 2232) 184 MG/DL HDL CHOLESTEROL (test code = 2220) 51 MG/DL CALC LDL CHOL (test code = 2237) 205 MG/DL RISK RATIO LDL/HDL (test code = 4.02 RATIO 2238) HEMOGLOBIN [id number] 00:00:00 Test Item Value Reference Range Interpretation Comments HEMOGLOBIN A1c (test code = 88794) 6.6 % HEMOGLOBIN [id number] 00:00:00 Test Item Value Reference Range Interpretation Comments HEMOGLOBIN A1c (test code = 73403) 6.6 % HEMOGLOBIN [id number] 00:00:00 Test Item Value Reference Range Interpretation Comments HEMOGLOBIN A1c (test code = 07726) 6.6 % [id number] 00:00:00 Test Item Value Reference Range Interpretation Comments TSH, THIRD GENERATION (test code 2.080 UIU/ML = 2821) [id number] 00:00:00 Test Item Value Reference Range Interpretation Comments TSH, THIRD GENERATION (test code 2.080 UIU/ML = 2821) LIPID [id number] 00:00:00 Test Item Value Reference Range Interpretation Comments CHOLESTEROL (test code = 2210) 292 MG/DL TRIGLYCERIDES (test code = 2232) 184 MG/DL HDL CHOLESTEROL (test code = 2220) 51 MG/DL CALC LDL CHOL (test code = 2237) 205 MG/DL RISK RATIO LDL/HDL (test code = 4.02 RATIO 2238) HEMOGLOBIN [id number] 00:00:00 Test Item Value Reference Range Interpretation Comments HEMOGLOBIN A1c (test code = 69430) 6.6 % HEMOGLOBIN [id number] 00:00:00 Test Item Value Reference Range Interpretation Comments HEMOGLOBIN A1c (test code = 67032) 6.6 % [id number] 00:00:00 Test Item Value Reference Range Interpretation Comments TSH, THIRD GENERATION (test code 2.080 UIU/ML = 2821) [id number] 00:00:00 Test Item Value Reference Range Interpretation Comments TSH, THIRD GENERATION (test code 2.080 UIU/ML = 2821) [id number] 00:00:00 Test Item Value Reference Range Interpretation Comments TSH, THIRD GENERATION (test code 2.080 UIU/ML = 2821) LIPID [id number] 00:00:00 Test Item Value Reference Range Interpretation Comments CHOLESTEROL (test code = 2210) 292 MG/DL TRIGLYCERIDES (test code = 2232) 184 MG/DL HDL CHOLESTEROL (test code = 2220) 51 MG/DL CALC LDL CHOL (test code = 2237) 205 MG/DL RISK RATIO LDL/HDL (test code = 4.02 RATIO 2238) LIPID [id number] 00:00:00 Test Item Value Reference Range Interpretation Comments CHOLESTEROL (test code = 2210) 292 MG/DL TRIGLYCERIDES (test code = 2232) 184 MG/DL HDL CHOLESTEROL (test code = 2220) 51 MG/DL CALC LDL CHOL (test code = 2237) 205 MG/DL RISK RATIO LDL/HDL (test code = 4.02 RATIO 2238) HEMOGLOBIN [id number] 00:00:00 Test Item Value Reference Range Interpretation Comments HEMOGLOBIN A1c (test code = 75297) 6.6 % HEMOGLOBIN [id number] 00:00:00 Test Item Value Reference Range Interpretation Comments HEMOGLOBIN A1c (test code = 75212) 6.6 % HEMOGLOBIN [id number] 00:00:00 Test Item Value Reference Range Interpretation Comments HEMOGLOBIN A1c (test code = 86261) 6.6 % HEMOGLOBIN [id number] 00:00:00 Test Item Value Reference Range Interpretation Comments HEMOGLOBIN A1c (test code = 47902) 6.8 % HEMOGLOBIN [id number] 00:00:00 Test Item Value Reference Range Interpretation Comments HEMOGLOBIN A1c (test code = 18711) 6.8 % HEMOGLOBIN [id number] 00:00:00 Test Item Value Reference Range Interpretation Comments HEMOGLOBIN A1c (test code = 61803) 6.8 % LIPID [id number] 00:00:00 Test Item Value Reference Range Interpretation Comments CHOLESTEROL (test code = 2210) 303 MG/DL TRIGLYCERIDES (test code = 2232) 191 MG/DL HDL CHOLESTEROL (test code = 2220) 61 MG/DL CALC LDL CHOL (test code = 2237) 205 MG/DL RISK RATIO LDL/HDL (test code = 3.36 RATIO 2238) LIPID [id number] 00:00:00 Test Item Value Reference Range Interpretation Comments CHOLESTEROL (test code = 2210) 303 MG/DL TRIGLYCERIDES (test code = 2232) 191 MG/DL HDL CHOLESTEROL (test code = 2220) 61 MG/DL CALC LDL CHOL (test code = 2237) 205 MG/DL RISK RATIO LDL/HDL (test code = 3.36 RATIO 2238) [id number] 00:00:00 Test Item Value Reference Range Interpretation Comments TSH, THIRD GENERATION (test code 0.769 UIU/ML = 2821) [id number] 00:00:00 Test Item Value Reference Range Interpretation Comments TSH, THIRD GENERATION (test code 0.769 UIU/ML = 2821) [id number] 00:00:00 Test Item Value Reference Range Interpretation Comments TSH, THIRD GENERATION (test code 0.769 UIU/ML = 2821) COMPREHENSIVE METABOLIC [id number] 00:00:00 Test Item Value Reference Range Interpretation Comments GLUCOSE (test code = 2217) 131 MG/DL BUN (test code = 2208) 13 MG/DL CREATININE (test code = 2214) 0.65 MG/DL eGFR AMER. (test code 113 ML/MIN/1.73 = 63667) eGFR NON- AMER. (test 97 ML/MIN/1.73 code = 57883) CALC BUN/CREAT (test code = 20 RATIO [...] code = 2219) 23 U/L COMPREHENSIVE METABOLIC [id number] 00:00:00 Test Item Value Reference Range Interpretation Comments GLUCOSE (test code = 2217) 131 MG/DL BUN (test code = 2208) 13 MG/DL CREATININE (test code = 2214) 0.65 MG/DL eGFR AMER. (test code 113 ML/MIN/1.73 = 15376) eGFR NON- AMER. (test 97 ML/MIN/1.73 code = 43558) CALC BUN/CREAT (test code = 20 RATIO [...] (test code = 2219) 23 U/L HEMOGLOBIN [id number] 00:00:00 Test Item Value Reference Range Interpretation Comments HEMOGLOBIN A1c (test code = 86955) 6.8 % HEMOGLOBIN [id number] 00:00:00 Test Item Value Reference Range Interpretation Comments HEMOGLOBIN A1c (test code = 14791) 6.8 % HEMOGLOBIN [id number] 00:00:00 Test Item Value Reference Range Interpretation Comments HEMOGLOBIN A1c (test code = 40543) 6.8 % LIPID [id number] 00:00:00 Test Item Value Reference Range Interpretation Comments CHOLESTEROL (test code = 2210) 303 MG/DL TRIGLYCERIDES (test code = 2232) 191 MG/DL HDL CHOLESTEROL (test code = 2220) 61 MG/DL CALC LDL CHOL (test code = 2237) 205 MG/DL RISK RATIO LDL/HDL (test code = 3.36 RATIO 2238) LIPID [id number] 00:00:00 Test Item Value Reference Range Interpretation Comments CHOLESTEROL (test code = 2210) 303 MG/DL TRIGLYCERIDES (test code = 2232) 191 MG/DL HDL CHOLESTEROL (test code = 2220) 61 MG/DL CALC LDL CHOL (test code = 2237) 205 MG/DL RISK RATIO LDL/HDL (test code = 3.36 RATIO 2238) [id number] 00:00:00 Test Item Value Reference Range Interpretation Comments TSH, THIRD GENERATION (test code 0.769 UIU/ML = 2821) [id number] 00:00:00 Test Item Value Reference Range Interpretation Comments TSH, THIRD GENERATION (test code 0.769 UIU/ML = 2821) [id number] 00:00:00 Test Item Value Reference Range Interpretation Comments TSH, THIRD GENERATION (test code 0.769 UIU/ML = 2821) COMPREHENSIVE METABOLIC [id number] 00:00:00 Test Item Value Reference Range Interpretation Comments GLUCOSE (test code = 2217) 131 MG/DL BUN (test code = 2208) 13 MG/DL CREATININE (test code = 2214) 0.65 MG/DL eGFR AMER. (test code 113 ML/MIN/1.73 = 22549) eGFR NON- AMER. (test 97 ML/MIN/1.73 code = 57116) CALC BUN/CREAT (test code = 20 RATIO [...] code = 2219) 23 U/L COMPREHENSIVE METABOLIC [id number] 00:00:00 Test Item Value Reference Range Interpretation Comments GLUCOSE (test code = 2217) 131 MG/DL BUN (test code = 2208) 13 MG/DL CREATININE (test code = 2214) 0.65 MG/DL eGFR AMER. (test code 113 ML/MIN/1.73 = 20460) eGFR NON- AMER. (test 97 ML/MIN/1.73 code = 36825) CALC BUN/CREAT (test code = 20 RATIO [...] (test code = 2219) 23 U/L HEMOGLOBIN [id number] 00:00:00 Test Item Value Reference Range Interpretation Comments HEMOGLOBIN A1c (test code = 04479) 6.8 % HEMOGLOBIN [id number] 00:00:00 Test Item Value Reference Range Interpretation Comments HEMOGLOBIN A1c (test code = 69816) 6.8 % LIPID [id number] 00:00:00 Test Item Value Reference Range Interpretation Comments CHOLESTEROL (test code = 2210) 303 MG/DL TRIGLYCERIDES (test code = 2232) 191 MG/DL HDL CHOLESTEROL (test code = 2220) 61 MG/DL CALC LDL CHOL (test code = 2237) 205 MG/DL RISK RATIO LDL/HDL (test code = 3.36 RATIO 2238) [id number] 00:00:00 Test Item Value Reference Range Interpretation Comments TSH, THIRD GENERATION (test code 0.769 UIU/ML = 2821) [id number] 00:00:00 Test Item Value Reference Range Interpretation Comments TSH, THIRD GENERATION (test code 0.769 UIU/ML = 2821) COMPREHENSIVE METABOLIC [id number] 00:00:00 Test Item Value Reference Range Interpretation Comments GLUCOSE (test code = 2217) 131 MG/DL BUN (test code = 2208) 13 MG/DL CREATININE (test code = 2214) 0.65 MG/DL eGFR AMER. (test code 113 ML/MIN/1.73 = 14263) eGFR NON- AMER. (test 97 ML/MIN/1.73 code = 28221) CALC BUN/CREAT (test code = 20 RATIO [...] (test code = 2219) 23 U/L HEMOGLOBIN [id number] 00:00:00 Test Item Value Reference Range Interpretation Comments HEMOGLOBIN A1c (test code = 96656) 6.8 % HEMOGLOBIN [id number] 00:00:00 Test Item Value Reference Range Interpretation Comments HEMOGLOBIN A1c (test code = 34318) 6.8 % HEMOGLOBIN [id number] 00:00:00 Test Item Value Reference Range Interpretation Comments HEMOGLOBIN A1c (test code = 96010) 6.8 % LIPID [id number] 00:00:00 Test Item Value Reference Range Interpretation Comments CHOLESTEROL (test code = 2210) 303 MG/DL TRIGLYCERIDES (test code = 2232) 191 MG/DL HDL CHOLESTEROL (test code = 2220) 61 MG/DL CALC LDL CHOL (test code = 2237) 205 MG/DL RISK RATIO LDL/HDL (test code = 3.36 RATIO 2238) LIPID [id number] 00:00:00 Test Item Value Reference Range Interpretation Comments CHOLESTEROL (test code = 2210) 303 MG/DL TRIGLYCERIDES (test code = 2232) 191 MG/DL HDL CHOLESTEROL (test code = 2220) 61 MG/DL CALC LDL CHOL (test code = 2237) 205 MG/DL RISK RATIO LDL/HDL (test code = 3.36 RATIO 2238) [id number] 00:00:00 Test Item Value Reference Range Interpretation Comments TSH, THIRD GENERATION (test code 0.769 UIU/ML = 2821) [id number] 00:00:00 Test Item Value Reference Range Interpretation Comments TSH, THIRD GENERATION (test code 0.769 UIU/ML = 2821) [id number] 00:00:00 Test Item Value Reference Range Interpretation Comments TSH, THIRD GENERATION (test code 0.769 UIU/ML = 2821) COMPREHENSIVE METABOLIC [id number] 00:00:00 Test Item Value Reference Range Interpretation Comments GLUCOSE (test code = 2217) 131 MG/DL BUN (test code = 2208) 13 MG/DL CREATININE (test code = 2214) 0.65 MG/DL eGFR AMER. (test code 113 ML/MIN/1.73 = 79166) eGFR NON- AMER. (test 97 ML/MIN/1.73 code = 03612) CALC BUN/CREAT (test code = 20 RATIO [...] code = 2219) 23 U/L COMPREHENSIVE METABOLIC [id number] 00:00:00 Test Item Value Reference Range Interpretation Comments GLUCOSE (test code = 2217) 131 MG/DL BUN (test code = 2208) 13 MG/DL CREATININE (test code = 2214) 0.65 MG/DL eGFR AMER. (test code 113 ML/MIN/1.73 = 16602) eGFR NON- AMER. (test 97 ML/MIN/1.73 code = 60472) CALC BUN/CREAT (test code = 20 RATIO [...] (test code = 2219) 23 U/L HEMOGLOBIN [id number] 00:00:00 Test Item Value Reference Range Interpretation Comments HEMOGLOBIN A1c (test code = 66199) 6.6 % HEMOGLOBIN [id number] 00:00:00 Test Item Value Reference Range Interpretation Comments HEMOGLOBIN A1c (test code = 02104) 6.6 % HEMOGLOBIN [id number] 00:00:00 Test Item Value Reference Range Interpretation Comments HEMOGLOBIN A1c (test code = 10461) 6.6 % LIPID [id number] 00:00:00 Test Item Value Reference Range Interpretation Comments CHOLESTEROL (test code = 2210) 261 MG/DL TRIGLYCERIDES (test code = 2232) 159 MG/DL HDL CHOLESTEROL (test code = 2220) 82 MG/DL CALC LDL CHOL (test code = 2237) 150 MG/DL RISK RATIO LDL/HDL (test code = 1.83 RATIO 2238) LIPID [id number] 00:00:00 Test Item Value Reference Range Interpretation Comments CHOLESTEROL (test code = 2210) 261 MG/DL TRIGLYCERIDES (test code = 2232) 159 MG/DL HDL CHOLESTEROL (test code = 2220) 82 MG/DL CALC LDL CHOL (test code = 2237) 150 MG/DL RISK RATIO LDL/HDL (test code = 1.83 RATIO 2238) COMPREHENSIVE METABOLIC [id number] 00:00:00 Test Item Value Reference Range Interpretation Comments GLUCOSE (test code = 2217) 144 MG/DL BUN (test code = 2208) 15 MG/DL CREATININE (test code = 2214) 0.85 MG/DL eGFR AMER. (test code 87 ML/MIN/1.73 = 17498) eGFR NON- AMER. (test 75 ML/MIN/1.73 code = 65932) CALC BUN/CREAT (test code = 18 RATIO [...] code = 2219) 50 U/L COMPREHENSIVE METABOLIC [id number] 00:00:00 Test Item Value Reference Range Interpretation Comments GLUCOSE (test code = 2217) 144 MG/DL BUN (test code = 2208) 15 MG/DL CREATININE (test code = 2214) 0.85 MG/DL eGFR AMER. (test code 87 ML/MIN/1.73 = 32612) eGFR NON- AMER. (test 75 ML/MIN/1.73 code = 46533) CALC BUN/CREAT (test code = 18 RATIO [...] THYROX. BIND. CAPAC. (test code 1.1 = 86450) T4 (THYROXINE) (test code = 4.3 UG/DL 281) CORRECTED T4 (FTI) (test code = 3.9 UG/DL 2820) TSH, THIRD GENERATION (test 18.900 UIU/ML code = 2821) THYROID II PROFILE (T3U, T4, T7, TSH)2020-05-23 00:00:00 Test Item Value Reference Range Interpretation Comments T-UPTAKE (test code = 2817) 30.2 % THYROX. BIND. CAPAC. (test code 1.1 = 83280) T4 (THYROXINE) (test code = 4.3 UG/DL 2819) CORRECTED T4 (FTI) (test code = 3.9 UG/DL 2820) TSH, THIRD GENERATION (test 18.900 UIU/ML code = 2821) HEMOGLOBIN [id number] 00:00:00 Test Item Value Reference Range Interpretation Comments HEMOGLOBIN A1c (test code = 04139) 6.6 % HEMOGLOBIN [id number] 00:00:00 Test Item Value Reference Range Interpretation Comments HEMOGLOBIN A1c (test code = 38732) 6.6 % HEMOGLOBIN [id number] 00:00:00 Test Item Value Reference Range Interpretation Comments HEMOGLOBIN A1c (test code = 80663) 6.6 % LIPID [id number] 00:00:00 Test Item Value Reference Range Interpretation Comments CHOLESTEROL (test code = 2210) 261 MG/DL TRIGLYCERIDES (test code = 2232) 159 MG/DL HDL CHOLESTEROL (test code = 2220) 82 MG/DL CALC LDL CHOL (test code = 2237) 150 MG/DL RISK RATIO LDL/HDL (test code = 1.83 RATIO 2238) LIPID [id number] 00:00:00 Test Item Value Reference Range Interpretation Comments CHOLESTEROL (test code = 2210) 261 MG/DL TRIGLYCERIDES (test code = 2232) 159 MG/DL HDL CHOLESTEROL (test code = 2220) 82 MG/DL CALC LDL CHOL (test code = 2237) 150 MG/DL RISK RATIO LDL/HDL (test code = 1.83 RATIO 2238) COMPREHENSIVE METABOLIC [id number] 00:00:00 Test Item Value Reference Range Interpretation Comments GLUCOSE (test code = 2217) 144 MG/DL BUN (test code = 2208) 15 MG/DL CREATININE (test code = 2214) 0.85 MG/DL eGFR AMER. (test code 87 ML/MIN/1.73 = 52027) eGFR NON- AMER. (test 75 ML/MIN/1.73 code = 20925) CALC BUN/CREAT (test code = 18 RATIO [...] code = 2219) 50 U/L COMPREHENSIVE METABOLIC [id number] 00:00:00 Test Item Value Reference Range Interpretation Comments GLUCOSE (test code = 2217) 144 MG/DL BUN (test code = 2208) 15 MG/DL CREATININE (test code = 2214) 0.85 MG/DL eGFR AMER. (test code 87 ML/MIN/1.73 = 90597) eGFR NON- AMER. (test 75 ML/MIN/1.73 code = 87968) CALC BUN/CREAT (test code = 18 RATIO [...] Range Interpretation Comments T-UPTAKE (test code = 5107) 30.2 % THYROX. BIND. CAPAC. (test code 1.1 = 42531) T4 (THYROXINE) (test code = 4.3 UG/DL 2819) CORRECTED T4 (FTI) (test code = 3.9 UG/DL 2820) TSH, THIRD GENERATION (test 18.900 UIU/ML code = 2821) THYROID II PROFILE (T3U, T4, T7, TSH)2020-05-23 00:00:00 Test Item Value Reference Range Interpretation Comments T-UPTAKE (test code = 2817) 30.2 % THYROX. BIND. CAPAC. (test code 1.1 = 28954) T4 (THYROXINE) (test code = 4.3 UG/DL 2819) CORRECTED T4 (FTI) (test code = 3.9 UG/DL 2820) TSH, THIRD GENERATION (test 18.900 UIU/ML code = 2821) HEMOGLOBIN [id number] 00:00:00 Test Item Value Reference Range Interpretation Comments HEMOGLOBIN A1c (test code = 07913) 6.6 % HEMOGLOBIN [id number] 00:00:00 Test Item Value Reference Range Interpretation Comments HEMOGLOBIN A1c (test code = 52393) 6.6 % LIPID [id number] 00:00:00 Test Item Value Reference Range Interpretation Comments CHOLESTEROL (test code = 2210) 261 MG/DL TRIGLYCERIDES (test code = 2232) 159 MG/DL HDL CHOLESTEROL (test code = 2220) 82 MG/DL CALC LDL CHOL (test code = 2237) 150 MG/DL RISK RATIO LDL/HDL (test code = 1.83 RATIO 2238) COMPREHENSIVE METABOLIC [id number] 00:00:00 Test Item Value Reference Range Interpretation Comments GLUCOSE (test code = 2217) 144 MG/DL BUN (test code = 2208) 15 MG/DL CREATININE (test code = 2214) 0.85 MG/DL eGFR AMER. (test code 87 ML/MIN/1.73 = 00191) eGFR NON- AMER. (test 75 ML/MIN/1.73 code = 97681) CALC BUN/CREAT (test code = 18 RATIO [...] THYROX. BIND. CAPAC. (test code 1.1 = 70686) T4 (THYROXINE) (test code = 4.3 UG/DL 2818) CORRECTED T4 (FTI) (test code = 3.9 UG/DL 2820) TSH, THIRD GENERATION (test 18.900 UIU/ML code = 2821) HEMOGLOBIN [id number] 00:00:00 Test Item Value Reference Range Interpretation Comments HEMOGLOBIN A1c (test code = 24026) 6.6 % HEMOGLOBIN [id number] 00:00:00 Test Item Value Reference Range Interpretation Comments HEMOGLOBIN A1c (test code = 66172) 6.6 % HEMOGLOBIN [id number] 00:00:00 Test Item Value Reference Range Interpretation Comments HEMOGLOBIN A1c (test code = 10129) 6.6 % LIPID [id number] 00:00:00 Test Item Value Reference Range Interpretation Comments CHOLESTEROL (test code = 2210) 261 MG/DL TRIGLYCERIDES (test code = 2232) 159 MG/DL HDL CHOLESTEROL (test code = 2220) 82 MG/DL CALC LDL CHOL (test code = 2237) 150 MG/DL RISK RATIO LDL/HDL (test code = 1.83 RATIO 2238) LIPID [id number] 00:00:00 Test Item Value Reference Range Interpretation Comments CHOLESTEROL (test code = 2210) 261 MG/DL TRIGLYCERIDES (test code = 2232) 159 MG/DL HDL CHOLESTEROL (test code = 2220) 82 MG/DL CALC LDL CHOL (test code = 2237) 150 MG/DL RISK RATIO LDL/HDL (test code = 1.83 RATIO 2238) COMPREHENSIVE METABOLIC [id number] 00:00:00 Test Item Value Reference Range Interpretation Comments GLUCOSE (test code = 2217) 144 MG/DL BUN (test code = 2208) 15 MG/DL CREATININE (test code = 2214) 0.85 MG/DL eGFR AMER. (test code 87 ML/MIN/1.73 = 95692) eGFR NON- AMER. (test 75 ML/MIN/1.73 code = 52504) CALC BUN/CREAT (test code = 18 RATIO [...] code = 2219) 50 U/L COMPREHENSIVE METABOLIC [id number] 00:00:00 Test Item Value Reference Range Interpretation Comments GLUCOSE (test code = 2217) 144 MG/DL BUN (test code = 2208) 15 MG/DL CREATININE (test code = 2214) 0.85 MG/DL eGFR AMER. (test code 87 ML/MIN/1.73 = 08847) eGFR NON- AMER. (test 75 ML/MIN/1.73 code = 38081) CALC BUN/CREAT (test code = 18 RATIO [...] THYROX. BIND. CAPAC. (test code 1.1 = 33463) T4 (THYROXINE) (test code = 4.3 UG/DL 2819) CORRECTED T4 (FTI) (test code = 3.9 UG/DL 2820) TSH, THIRD GENERATION (test 18.900 UIU/ML code = 2821) THYROID II PROFILE (T3U, T4, T7, TSH)2020-05-23 00:00:00 Test Item Value Reference Range Interpretation Comments T-UPTAKE (test code = 7) 30.2 % THYROX. BIND. CAPAC. (test code 1.1 = 22714) T4 (THYROXINE) (test code = 4.3 UG/DL 2819) CORRECTED T4 (FTI) (test code = 3.9 UG/DL 2820) TSH, THIRD GENERATION (test 18.900 UIU/ML code = 2821) HEMOGLOBIN [id number] 00:00:00 Test Item Value Reference Range Interpretation Comments HEMOGLOBIN A1c (test code = 90684) 6.7 % HEMOGLOBIN [id number] 00:00:00 Test Item Value Reference Range Interpretation Comments HEMOGLOBIN A1c (test code = 58310) 6.7 % HEMOGLOBIN [id number] 00:00:00 Test Item Value Reference Range Interpretation Comments HEMOGLOBIN A1c (test code = 99949) 6.7 % LIPID [id number] 00:00:00 Test Item Value Reference Range Interpretation Comments CHOLESTEROL (test code = 2210) 267 MG/DL TRIGLYCERIDES (test code = 2232) 137 MG/DL HDL CHOLESTEROL (test code = 2220) 48 MG/DL CALC LDL CHOL (test code = 2237) 192 MG/DL RISK RATIO LDL/HDL (test code = 4.00 RATIO 2238) LIPID [id number] 00:00:00 Test Item Value Reference Range Interpretation Comments CHOLESTEROL (test code = 2210) 267 MG/DL TRIGLYCERIDES (test code = 2232) 137 MG/DL HDL CHOLESTEROL (test code = 2220) 48 MG/DL CALC LDL CHOL (test code = 2237) 192 MG/DL RISK RATIO LDL/HDL (test code = 4.00 RATIO 2238) COMPREHENSIVE METABOLIC [id number] 00:00:00 Test Item Value Reference Range Interpretation Comments GLUCOSE (test code = 2217) 155 MG/DL BUN (test code = 2208) 14 MG/DL CREATININE (test code = 2214) 0.52 MG/DL eGFR AMER. (test code 122 ML/MIN/1.73 = 39262) eGFR NON- AMER. (test 105 ML/MIN/1.73 code = 00308) CALC BUN/CREAT (test code = 27 RATIO [...] code = 2219) 27 U/L COMPREHENSIVE METABOLIC [id number] 00:00:00 Test Item Value Reference Range Interpretation Comments GLUCOSE (test code = 2217) 155 MG/DL BUN (test code = 2208) 14 MG/DL CREATININE (test code = 2214) 0.52 MG/DL eGFR AMER. (test code 122 ML/MIN/1.73 = 23894) eGFR NON- AMER. (test 105 ML/MIN/1.73 code = 28591) CALC BUN/CREAT (test code = 27 RATIO [...] THYROX. BIND. CAPAC. (test code 1.0 = 09224) T4 (THYROXINE) (test code = 4.7 UG/DL 2819) CORRECTED T4 (FTI) (test code = 4.7 UG/DL 2820) TSH, THIRD GENERATION (test code 0.201 UIU/ML = 2821) THYROID II PROFILE (T3U, T4, T7, TSH)2019 00:00:00 Test Item Value Reference Range Interpretation Comments T-UPTAKE (test code = 2816) 33.1 % THYROX. BIND. CAPAC. (test code 1.0 = 77972) T4 (THYROXINE) (test code = 4.7 UG/DL 2819) CORRECTED T4 (FTI) (test code = 4.7 UG/DL 2820) TSH, THIRD GENERATION (test code 0.201 UIU/ML = 2821) HEMOGLOBIN [id number] 00:00:00 Test Item Value Reference Range Interpretation Comments HEMOGLOBIN A1c (test code = 78479) 6.7 % HEMOGLOBIN [id number] 00:00:00 Test Item Value Reference Range Interpretation Comments HEMOGLOBIN A1c (test code = 10072) 6.7 % HEMOGLOBIN [id number] 00:00:00 Test Item Value Reference Range Interpretation Comments HEMOGLOBIN A1c (test code = 97126) 6.7 % LIPID [id number] 00:00:00 Test Item Value Reference Range Interpretation Comments CHOLESTEROL (test code = 2210) 267 MG/DL TRIGLYCERIDES (test code = 2232) 137 MG/DL HDL CHOLESTEROL (test code = 2220) 48 MG/DL CALC LDL CHOL (test code = 2237) 192 MG/DL RISK RATIO LDL/HDL (test code = 4.00 RATIO 2238) LIPID [id number] 00:00:00 Test Item Value Reference Range Interpretation Comments CHOLESTEROL (test code = 2210) 267 MG/DL TRIGLYCERIDES (test code = 2232) 137 MG/DL HDL CHOLESTEROL (test code = 2220) 48 MG/DL CALC LDL CHOL (test code = 2237) 192 MG/DL RISK RATIO LDL/HDL (test code = 4.00 RATIO 2238) COMPREHENSIVE METABOLIC [id number] 00:00:00 Test Item Value Reference Range Interpretation Comments GLUCOSE (test code = 2217) 155 MG/DL BUN (test code = 2208) 14 MG/DL CREATININE (test code = 2214) 0.52 MG/DL eGFR AMER. (test code 122 ML/MIN/1.73 = 89803) eGFR NON- AMER. (test 105 ML/MIN/1.73 code = 90362) CALC BUN/CREAT (test code = 27 RATIO [...] code = 2219) 27 U/L COMPREHENSIVE METABOLIC [id number] 00:00:00 Test Item Value Reference Range Interpretation Comments GLUCOSE (test code = 2217) 155 MG/DL BUN (test code = 2208) 14 MG/DL CREATININE (test code = 2214) 0.52 MG/DL eGFR AMER. (test code 122 ML/MIN/1.73 = 55394) eGFR NON- AMER. (test 105 ML/MIN/1.73 code = 41521) CALC BUN/CREAT (test code = 27 RATIO [...] THYROX. BIND. CAPAC. (test code 1.0 = 02341) T4 (THYROXINE) (test code = 4.7 UG/DL 2819) CORRECTED T4 (FTI) (test code = 4.7 UG/DL 2820) TSH, THIRD GENERATION (test code 0.201 UIU/ML = 2821) THYROID II PROFILE (T3U, T4, T7, TSH)2019 00:00:00 Test Item Value Reference Range Interpretation Comments T-UPTAKE (test code = 281) 33.1 % THYROX. BIND. CAPAC. (test code 1.0 = 05620) T4 (THYROXINE) (test code = 4.7 UG/DL 2819) CORRECTED T4 (FTI) (test code = 4.7 UG/DL 2820) TSH, THIRD GENERATION (test code 0.201 UIU/ML = 2821) HEMOGLOBIN [id number] 00:00:00 Test Item Value Reference Range Interpretation Comments HEMOGLOBIN A1c (test code = 39119) 6.7 % HEMOGLOBIN [id number] 00:00:00 Test Item Value Reference Range Interpretation Comments HEMOGLOBIN A1c (test code = 15311) 6.7 % LIPID [id number] 00:00:00 Test Item Value Reference Range Interpretation Comments CHOLESTEROL (test code = 2210) 267 MG/DL TRIGLYCERIDES (test code = 2232) 137 MG/DL HDL CHOLESTEROL (test code = 2220) 48 MG/DL CALC LDL CHOL (test code = 2237) 192 MG/DL RISK RATIO LDL/HDL (test code = 4.00 RATIO 2238) COMPREHENSIVE METABOLIC [id number] 00:00:00 Test Item Value Reference Range Interpretation Comments GLUCOSE (test code = 2217) 155 MG/DL BUN (test code = 2208) 14 MG/DL CREATININE (test code = 2214) 0.52 MG/DL eGFR AMER. (test code 122 ML/MIN/1.73 = 13887) eGFR NON- AMER. (test 105 ML/MIN/1.73 code = 95475) CALC BUN/CREAT (test code = 27 RATIO [...] THYROX. BIND. CAPAC. (test code 1.0 = 54561) T4 (THYROXINE) (test code = 4.7 UG/DL 2819) CORRECTED T4 (FTI) (test code = 4.7 UG/DL 2820) TSH, THIRD GENERATION (test code 0.201 UIU/ML = 2821) HEMOGLOBIN [id number] 00:00:00 Test Item Value Reference Range Interpretation Comments HEMOGLOBIN A1c (test code = 59249) 6.7 % HEMOGLOBIN [id number] 00:00:00 Test Item Value Reference Range Interpretation Comments HEMOGLOBIN A1c (test code = 63033) 6.7 % HEMOGLOBIN [id number] 00:00:00 Test Item Value Reference Range Interpretation Comments HEMOGLOBIN A1c (test code = 48556) 6.7 % LIPID [id number] 00:00:00 Test Item Value Reference Range Interpretation Comments CHOLESTEROL (test code = 2210) 267 MG/DL TRIGLYCERIDES (test code = 2232) 137 MG/DL HDL CHOLESTEROL (test code = 2220) 48 MG/DL CALC LDL CHOL (test code = 2237) 192 MG/DL RISK RATIO LDL/HDL (test code = 4.00 RATIO 2238) LIPID [id number] 00:00:00 Test Item Value Reference Range Interpretation Comments CHOLESTEROL (test code = 2210) 267 MG/DL TRIGLYCERIDES (test code = 2232) 137 MG/DL HDL CHOLESTEROL (test code = 2220) 48 MG/DL CALC LDL CHOL (test code = 2237) 192 MG/DL RISK RATIO LDL/HDL (test code = 4.00 RATIO 2238) COMPREHENSIVE METABOLIC [id number] 00:00:00 Test Item Value Reference Range Interpretation Comments GLUCOSE (test code = 2217) 155 MG/DL BUN (test code = 2208) 14 MG/DL CREATININE (test code = 2214) 0.52 MG/DL eGFR AMER. (test code 122 ML/MIN/1.73 = 41391) eGFR NON- AMER. (test 105 ML/MIN/1.73 code = 71759) CALC BUN/CREAT (test code = 27 RATIO [...] code = 2219) 27 U/L COMPREHENSIVE METABOLIC [id number] 00:00:00 Test Item Value Reference Range Interpretation Comments GLUCOSE (test code = 2217) 155 MG/DL BUN (test code = 2208) 14 MG/DL CREATININE (test code = 2214) 0.52 MG/DL eGFR AMER. (test code 122 ML/MIN/1.73 = 69430) eGFR NON- AMER. (test 105 ML/MIN/1.73 code = 23734) CALC BUN/CREAT (test code = 27 RATIO [...] THYROX. BIND. CAPAC. (test code 1.0 = 08739) T4 (THYROXINE) (test code = 4.7 UG/DL 2819) CORRECTED T4 (FTI) (test code = 4.7 UG/DL 2820) TSH, THIRD GENERATION (test code 0.201 UIU/ML = 2821) THYROID II PROFILE (T3U, T4, T7, TSH)2019 00:00:00 Test Item Value Reference Range Interpretation Comments T-UPTAKE (test code = 2817) 33.1 % THYROX. BIND. CAPAC. (test code 1.0 = 25536) T4 (THYROXINE) (test code = 4.7 UG/DL 2819) CORRECTED T4 (FTI) (test code = 4.7 UG/DL 2820) TSH, THIRD GENERATION (test code 0.201 UIU/ML = 2821) SARS-CoV-2 (COVID-19) by RT-PCR (HIGH RISK)2019-09-18 00:00:00 Test Item Value Reference Range Interpretation Comments SARS-CoV-2 INTERPRETATION (test NEGATIVE code = 88274) SOURCE (test code = 68669) NOT SPECIFIED SARS-CoV-2 (COVID-19) by RT-PCR (HIGH RISK)2019-09-18 00:00:00 Test Item Value Reference Range Interpretation Comments SARS-CoV-2 INTERPRETATION (test NEGATIVE code = 61437) SOURCE (test code = 94801) NOT SPECIFIED SARS-CoV-2 (COVID-19) by RT-PCR (HIGH RISK)2019-09-18 00:00:00 Test Item Value Reference Range Interpretation Comments SARS-CoV-2 INTERPRETATION (test NEGATIVE code = 73631) SOURCE (test code = 97727) NOT SPECIFIED SARS-CoV-2 (COVID-19) by RT-PCR (HIGH RISK)2019-09-18 00:00:00 Test Item Value Reference Range Interpretation Comments SARS-CoV-2 INTERPRETATION (test NEGATIVE code = 70475) SOURCE (test code = 99777) NOT SPECIFIED SARS-CoV-2 (COVID-19) by RT-PCR (HIGH RISK)2019-09-18 00:00:00 Test Item Value Reference Range Interpretation Comments SARS-CoV-2 INTERPRETATION (test NEGATIVE code = 36570) SOURCE (test code = 49130) NOT SPECIFIED SARS-CoV-2 (COVID-19) by RT-PCR (HIGH RISK)2019-09-18 00:00:00 Test Item Value Reference Range Interpretation Comments SARS-CoV-2 INTERPRETATION (test NEGATIVE code = 32096) SOURCE (test code = 58200) NOT SPECIFIED SARS-CoV-2 (COVID-19) by RT-PCR (HIGH RISK)2019-09-18 00:00:00 Test Item Value Reference Range Interpretation Comments SARS-CoV-2 INTERPRETATION (test NEGATIVE code = 11299) SOURCE (test code = 31835) NOT SPECIFIED [id number] 00:00:00 Test Item Value Reference Range Interpretation Comments TSH, THIRD GENERATION (test code 2.490 UIU/ML = 2821) [id number] 00:00:00 Test Item Value Reference Range Interpretation Comments TSH, THIRD GENERATION (test code 2.490 UIU/ML = 2821) [id number] 00:00:00 Test Item Value Reference Range Interpretation Comments TSH, THIRD GENERATION (test code 2.490 UIU/ML = 2821) HEMOGLOBIN [id number] 00:00:00 Test Item Value Reference Range Interpretation Comments HEMOGLOBIN A1c (test code = 19083) 6.4 % HEMOGLOBIN [id number] 00:00:00 Test Item Value Reference Range Interpretation Comments HEMOGLOBIN A1c (test code = 90128) 6.4 % HEMOGLOBIN [id number] 00:00:00 Test Item Value Reference Range Interpretation Comments HEMOGLOBIN A1c (test code = 94625) 6.4 % COMPREHENSIVE METABOLIC [id number] 00:00:00 Test Item Value Reference Range Interpretation Comments GLUCOSE (test code = 2217) 206 MG/DL BUN (test code = 2208) 23 MG/DL CREATININE (test code = 2214) 0.67 MG/DL eGFR AMER. (test code 112 ML/MIN/1.73 = 18530) eGFR NON- AMER. (test 97 ML/MIN/1.73 code = 76644) CALC BUN/CREAT (test code = 34 RATIO [...] code = 2219) 25 U/L COMPREHENSIVE METABOLIC [id number] 00:00:00 Test Item Value Reference Range Interpretation Comments GLUCOSE (test code = 2217) 206 MG/DL BUN (test code = 2208) 23 MG/DL CREATININE (test code = 2214) 0.67 MG/DL eGFR AMER. (test code 112 ML/MIN/1.73 = 11895) eGFR NON- AMER. (test 97 ML/MIN/1.73 code = 13824) CALC BUN/CREAT (test code = 34 RATIO [...] ALT (test code = 2219) 25 U/L [id number] 00:00:00 Test Item Value Reference Range Interpretation Comments TSH, THIRD GENERATION (test code 2.490 UIU/ML = 2821) [id number] 00:00:00 Test Item Value Reference Range Interpretation Comments TSH, THIRD GENERATION (test code 2.490 UIU/ML = 2821) [id number] 00:00:00 Test Item Value Reference Range Interpretation Comments TSH, THIRD GENERATION (test code 2.490 UIU/ML = 2821) HEMOGLOBIN [id number] 00:00:00 Test Item Value Reference Range Interpretation Comments HEMOGLOBIN A1c (test code = 11578) 6.4 % HEMOGLOBIN [id number] 00:00:00 Test Item Value Reference Range Interpretation Comments HEMOGLOBIN A1c (test code = 67249) 6.4 % HEMOGLOBIN [id number] 00:00:00 Test Item Value Reference Range Interpretation Comments HEMOGLOBIN A1c (test code = 55215) 6.4 % COMPREHENSIVE METABOLIC [id number] 00:00:00 Test Item Value Reference Range Interpretation Comments GLUCOSE (test code = 2217) 206 MG/DL BUN (test code = 2208) 23 MG/DL CREATININE (test code = 2214) 0.67 MG/DL eGFR AMER. (test code 112 ML/MIN/1.73 = 73842) eGFR NON- AMER. (test 97 ML/MIN/1.73 code = 63187) CALC BUN/CREAT (test code = 34 RATIO [...] code = 2219) 25 U/L COMPREHENSIVE METABOLIC [id number] 00:00:00 Test Item Value Reference Range Interpretation Comments GLUCOSE (test code = 2217) 206 MG/DL BUN (test code = 2208) 23 MG/DL CREATININE (test code = 2214) 0.67 MG/DL eGFR AMER. (test code 112 ML/MIN/1.73 = 78181) eGFR NON- AMER. (test 97 ML/MIN/1.73 code = 61323) CALC BUN/CREAT (test code = 34 RATIO [...] ALT (test code = 2219) 25 U/L [id number] 00:00:00 Test Item Value Reference Range Interpretation Comments TSH, THIRD GENERATION (test code 2.490 UIU/ML = 2821) [id number] 00:00:00 Test Item Value Reference Range Interpretation Comments TSH, THIRD GENERATION (test code 2.490 UIU/ML = 2821) HEMOGLOBIN [id number] 00:00:00 Test Item Value Reference Range Interpretation Comments HEMOGLOBIN A1c (test code = 46857) 6.4 % HEMOGLOBIN [id number] 00:00:00 Test Item Value Reference Range Interpretation Comments HEMOGLOBIN A1c (test code = 99707) 6.4 % COMPREHENSIVE METABOLIC [id number] 00:00:00 Test Item Value Reference Range Interpretation Comments GLUCOSE (test code = 2217) 206 MG/DL BUN (test code = 2208) 23 MG/DL CREATININE (test code = 2214) 0.67 MG/DL eGFR AMER. (test code 112 ML/MIN/1.73 = 31542) eGFR NON- AMER. (test 97 ML/MIN/1.73 code = 40566) CALC BUN/CREAT (test code = 34 RATIO [...] ALT (test code = 2219) 25 U/L [id number] 00:00:00 Test Item Value Reference Range Interpretation Comments TSH, THIRD GENERATION (test code 2.490 UIU/ML = 2821) [id number] 00:00:00 Test Item Value Reference Range Interpretation Comments TSH, THIRD GENERATION (test code 2.490 UIU/ML = 2821) [id number] 00:00:00 Test Item Value Reference Range Interpretation Comments TSH, THIRD GENERATION (test code 2.490 UIU/ML = 2821) HEMOGLOBIN [id number] 00:00:00 Test Item Value Reference Range Interpretation Comments HEMOGLOBIN A1c (test code = 62219) 6.4 % HEMOGLOBIN [id number] 00:00:00 Test Item Value Reference Range Interpretation Comments HEMOGLOBIN A1c (test code = 18411) 6.4 % HEMOGLOBIN [id number] 00:00:00 Test Item Value Reference Range Interpretation Comments HEMOGLOBIN A1c (test code = 21770) 6.4 % COMPREHENSIVE METABOLIC [id number] 00:00:00 Test Item Value Reference Range Interpretation Comments GLUCOSE (test code = 2217) 206 MG/DL BUN (test code = 2208) 23 MG/DL CREATININE (test code = 2214) 0.67 MG/DL eGFR AMER. (test code 112 ML/MIN/1.73 = 29965) eGFR NON- AMER. (test 97 ML/MIN/1.73 code = 55213) CALC BUN/CREAT (test code = 34 RATIO [...] code = 2219) 25 U/L COMPREHENSIVE METABOLIC [id number] 00:00:00 Test Item Value Reference Range Interpretation Comments GLUCOSE (test code = 2217) 206 MG/DL BUN (test code = 2208) 23 MG/DL CREATININE (test code = 2214) 0.67 MG/DL eGFR AMER. (test code 112 ML/MIN/1.73 = 50034) eGFR NON- AMER. (test 97 ML/MIN/1.73 code = 47197) CALC BUN/CREAT (test code = 34 RATIO [...] = 2219) 25 U/L VAGINAL PATHOGENS DNA [id number] 00:00:00 Test Item Value Reference Range Interpretation Comments MARK SPECIES (test code = ) NEGATIVE G. VAGINALIS (test code = ) NEGATIVE T. VAGINALIS (test code = ) NEGATIVE VAGINAL PATHOGENS DNA [id number] 00:00:00 Test Item Value Reference Range Interpretation Comments MARK SPECIES (test code = 44958) NEGATIVE G. VAGINALIS (test code = 89872) NEGATIVE T. VAGINALIS (test code = 47121) NEGATIVE VAGINAL PATHOGENS DNA [id number] 00:00:00 Test Item Value Reference Range Interpretation Comments MARK SPECIES (test code = 09266) NEGATIVE G. VAGINALIS (test code = 23326) NEGATIVE T. VAGINALIS (test code = 66893) NEGATIVE VAGINAL PATHOGENS DNA [id number] 00:00:00 Test Item Value Reference Range Interpretation Comments MARK SPECIES (test code = 75702) NEGATIVE G. VAGINALIS (test code = 94139) NEGATIVE T. VAGINALIS (test code = 80490) NEGATIVE VAGINAL PATHOGENS DNA [id number] 00:00:00 Test Item Value Reference Range Interpretation Comments MARK SPECIES (test code = 22551) NEGATIVE G. VAGINALIS (test code = 84390) NEGATIVE T. VAGINALIS (test code = 80704) NEGATIVE VAGINAL PATHOGENS DNA [id number] 00:00:00 Test Item Value Reference Range Interpretation Comments MARK SPECIES (test code = 45481) NEGATIVE G. VAGINALIS (test code = 40559) NEGATIVE T. VAGINALIS (test code = 50303) NEGATIVE VAGINAL PATHOGENS DNA [id number] 00:00:00 Test Item Value Reference Range Interpretation Comments MARK SPECIES (test code = 32012) NEGATIVE G. VAGINALIS (test code = 68990) NEGATIVE T. VAGINALIS (test code = 65680) NEGATIVE HEMOGLOBIN A1c [ADDED]2018-12-01 00:00:00 Test Item Value Reference Range Interpretation Comments HEMOGLOBIN A1c (test code = 04435) 6.7 % HEMOGLOBIN A1c [ADDED]2018-12-01 00:00:00 Test Item Value Reference Range Interpretation Comments HEMOGLOBIN A1c (test code = 52929) 6.7 % HEMOGLOBIN A1c [ADDED]2018-12-01 00:00:00 Test Item Value Reference Range Interpretation Comments HEMOGLOBIN A1c (test code = 12173) 6.7 % COMPREHENSIVE METABOLIC PANEL [ADDED]2018-12-01 00:00:00 Test Item Value Reference Range Interpretation Comments GLUCOSE (test code = 2217) 136 MG/DL BUN (test code = 2208) 15 MG/DL CREATININE (test code = 2214) 0.64 MG/DL eGFR AMER. (test code 115 ML/MIN/1.73 = 10225) eGFR NON- AMER. (test 99 ML/MIN/1.73 code = 11306) CALC BUN/CREAT (test code = 23 RATIO [...] eGFR AMER. (test code 115 ML/MIN/1.73 = 00966) eGFR NON- AMER. (test 99 ML/MIN/1.73 code = 08166) CALC BUN/CREAT (test code = 23 RATIO [...] Interpretation Comments HEMOGLOBIN A1c (test code = 37482) 6.7 % HEMOGLOBIN A1c [ADDED]2018-12-01 00:00:00 Test Item Value Reference Range Interpretation Comments HEMOGLOBIN A1c (test code = 74193) 6.7 % HEMOGLOBIN A1c [ADDED]2018-12-01 00:00:00 Test Item Value Reference Range Interpretation Comments HEMOGLOBIN A1c (test code = 58683) 6.7 % COMPREHENSIVE METABOLIC PANEL [ADDED]2018-12-01 00:00:00 Test Item Value Reference Range Interpretation Comments GLUCOSE (test code = 2217) 136 MG/DL BUN (test code = 2208) 15 MG/DL CREATININE (test code = 2214) 0.64 MG/DL eGFR AMER. (test code 115 ML/MIN/1.73 = 23479) eGFR NON- AMER. (test 99 ML/MIN/1.73 code = 64949) CALC BUN/CREAT (test code = 23 RATIO [...] eGFR AMER. (test code 115 ML/MIN/1.73 = 18672) eGFR NON- AMER. (test 99 ML/MIN/1.73 code = 28325) CALC BUN/CREAT (test code = 23 RATIO [...] Interpretation Comments HEMOGLOBIN A1c (test code = 80648) 6.7 % HEMOGLOBIN A1c [ADDED]2018-12-01 00:00:00 Test Item Value Reference Range Interpretation Comments HEMOGLOBIN A1c (test code = 57621) 6.7 % COMPREHENSIVE METABOLIC PANEL [ADDED]2018-12-01 00:00:00 Test Item Value Reference Range Interpretation Comments GLUCOSE (test code = 2217) 136 MG/DL BUN (test code = 2208) 15 MG/DL CREATININE (test code = 2214) 0.64 MG/DL eGFR AMER. (test code 115 ML/MIN/1.73 = 52994) eGFR NON- AMER. (test 99 ML/MIN/1.73 code = 23787) CALC BUN/CREAT (test code = 23 RATIO [...] Interpretation Comments HEMOGLOBIN A1c (test code = 85764) 6.7 % HEMOGLOBIN A1c [ADDED]2018-12-01 00:00:00 Test Item Value Reference Range Interpretation Comments HEMOGLOBIN A1c (test code = 91198) 6.7 % HEMOGLOBIN A1c [ADDED]2018-12-01 00:00:00 Test Item Value Reference Range Interpretation Comments HEMOGLOBIN A1c (test code = 94486) 6.7 % COMPREHENSIVE METABOLIC PANEL [ADDED]2018-12-01 00:00:00 Test Item Value Reference Range Interpretation Comments GLUCOSE (test code = 2217) 136 MG/DL BUN (test code = 2208) 15 MG/DL CREATININE (test code = 2214) 0.64 MG/DL eGFR AMER. (test code 115 ML/MIN/1.73 = 48858) eGFR NON- AMER. (test 99 ML/MIN/1.73 code = 57196) CALC BUN/CREAT (test code = 23 RATIO [...] eGFR AMER. (test code 115 ML/MIN/1.73 = 83400) eGFR NON- AMER. (test 99 ML/MIN/1.73 code = 44189) CALC BUN/CREAT (test code = 23 RATIO [...] code 1.280 UIU/ML = 2821) CBC W/AUTO [id number] 00:00:00 Test Item Value Reference Range Interpretation [...] code = 1015) 346 K/UL CBC W/AUTO [id number] 00:00:00 Test Item Value Reference Range Interpretation [...] code = 1015) 346 K/UL CBC W/AUTO [id number] 00:00:00 Test Item Value Reference Range Interpretation [...] (test code = 1015) 346 K/UL HEMOGLOBIN [id number] 00:00:00 Test Item Value Reference Range Interpretation Comments HEMOGLOBIN A1c (test code = 94347) 5.9 % HEMOGLOBIN [id number] 00:00:00 Test Item Value Reference Range Interpretation Comments HEMOGLOBIN A1c (test code = 47040) 5.9 % HEMOGLOBIN [id number] 00:00:00 Test Item Value Reference Range Interpretation Comments HEMOGLOBIN A1c (test code = 59563) 5.9 % LIPID [id number] 00:00:00 Test Item Value Reference Range Interpretation Comments CHOLESTEROL (test code = 2210) 318 MG/DL TRIGLYCERIDES (test code = 2232) 263 MG/DL HDL CHOLESTEROL (test code = 2220) 51 MG/DL CALC LDL CHOL (test code = 2237) 214 MG/DL RISK RATIO LDL/HDL (test code = 4.20 RATIO 2238) LIPID [id number] 00:00:00 Test Item Value Reference Range Interpretation Comments CHOLESTEROL (test code = 2210) 318 MG/DL TRIGLYCERIDES (test code = 2232) 263 MG/DL HDL CHOLESTEROL (test code = 2220) 51 MG/DL CALC LDL CHOL (test code = 2237) 214 MG/DL RISK RATIO LDL/HDL (test code = 4.20 RATIO 2238) COMPREHENSIVE METABOLIC [id number] 00:00:00 Test Item Value Reference Range Interpretation Comments GLUCOSE (test code = 2217) 113 MG/DL BUN (test code = 2208) 18 MG/DL CREATININE (test code = 2214) 0.70 MG/DL eGFR AMER. (test code 111 ML/MIN/1.73 = 70155) eGFR NON- AMER. (test 96 ML/MIN/1.73 code = 42352) CALC BUN/CREAT (test code = 26 RATIO [...] code = 2219) 31 U/L COMPREHENSIVE METABOLIC [id number] 00:00:00 Test Item Value Reference Range Interpretation Comments GLUCOSE (test code = 2217) 113 MG/DL BUN (test code = 2208) 18 MG/DL CREATININE (test code = 2214) 0.70 MG/DL eGFR AMER. (test code 111 ML/MIN/1.73 = 16135) eGFR NON- AMER. (test 96 ML/MIN/1.73 code = 90880) CALC BUN/CREAT (test code = 26 RATIO [...] ALT (test code = 2219) 31 U/L [id number] 00:00:00 Test Item Value Reference Range Interpretation Comments TSH, THIRD GENERATION (test code 2.520 UIU/ML = 2821) [id number] 00:00:00 Test Item Value Reference Range Interpretation Comments TSH, THIRD GENERATION (test code 2.520 UIU/ML = 2821) [id number] 00:00:00 Test Item Value Reference Range Interpretation Comments TSH, THIRD GENERATION (test code 2.520 UIU/ML = 2821) CBC W/AUTO [id number] 00:00:00 Test Item Value Reference Range Interpretation [...] code = 1015) 346 K/UL CBC W/AUTO [id number] 00:00:00 Test Item Value Reference Range Interpretation [...] code = 1015) 346 K/UL CBC W/AUTO [id number] 00:00:00 Test Item Value Reference Range Interpretation [...] (test code = 1015) 346 K/UL HEMOGLOBIN [id number] 00:00:00 Test Item Value Reference Range Interpretation Comments HEMOGLOBIN A1c (test code = 45588) 5.9 % HEMOGLOBIN [id number] 00:00:00 Test Item Value Reference Range Interpretation Comments HEMOGLOBIN A1c (test code = 58116) 5.9 % HEMOGLOBIN [id number] 00:00:00 Test Item Value Reference Range Interpretation Comments HEMOGLOBIN A1c (test code = 53152) 5.9 % LIPID [id number] 00:00:00 Test Item Value Reference Range Interpretation Comments CHOLESTEROL (test code = 2210) 318 MG/DL TRIGLYCERIDES (test code = 2232) 263 MG/DL HDL CHOLESTEROL (test code = 2220) 51 MG/DL CALC LDL CHOL (test code = 2237) 214 MG/DL RISK RATIO LDL/HDL (test code = 4.20 RATIO 2238) LIPID [id number] 00:00:00 Test Item Value Reference Range Interpretation Comments CHOLESTEROL (test code = 2210) 318 MG/DL TRIGLYCERIDES (test code = 2232) 263 MG/DL HDL CHOLESTEROL (test code = 2220) 51 MG/DL CALC LDL CHOL (test code = 2237) 214 MG/DL RISK RATIO LDL/HDL (test code = 4.20 RATIO 2238) COMPREHENSIVE METABOLIC [id number] 00:00:00 Test Item Value Reference Range Interpretation Comments GLUCOSE (test code = 2217) 113 MG/DL BUN (test code = 2208) 18 MG/DL CREATININE (test code = 2214) 0.70 MG/DL eGFR AMER. (test code 111 ML/MIN/1.73 = 49658) eGFR NON- AMER. (test 96 ML/MIN/1.73 code = 48652) CALC BUN/CREAT (test code = 26 RATIO [...] code = 2219) 31 U/L COMPREHENSIVE METABOLIC [id number] 00:00:00 Test Item Value Reference Range Interpretation Comments GLUCOSE (test code = 2217) 113 MG/DL BUN (test code = 2208) 18 MG/DL CREATININE (test code = 2214) 0.70 MG/DL eGFR AMER. (test code 111 ML/MIN/1.73 = 84673) eGFR NON- AMER. (test 96 ML/MIN/1.73 code = 76577) CALC BUN/CREAT (test code = 26 RATIO [...] ALT (test code = 2219) 31 U/L [id number] 00:00:00 Test Item Value Reference Range Interpretation Comments TSH, THIRD GENERATION (test code 2.520 UIU/ML = 2821) [id number] 00:00:00 Test Item Value Reference Range Interpretation Comments TSH, THIRD GENERATION (test code 2.520 UIU/ML = 2821) [id number] 00:00:00 Test Item Value Reference Range Interpretation Comments TSH, THIRD GENERATION (test code 2.520 UIU/ML = 2821) CBC W/AUTO [id number] 00:00:00 Test Item Value Reference Range Interpretation [...] code = 1015) 346 K/UL CBC W/AUTO [id number] 00:00:00 Test Item Value Reference Range Interpretation [...] (test code = 1015) 346 K/UL HEMOGLOBIN [id number] 00:00:00 Test Item Value Reference Range Interpretation Comments HEMOGLOBIN A1c (test code = 47233) 5.9 % HEMOGLOBIN [id number] 00:00:00 Test Item Value Reference Range Interpretation Comments HEMOGLOBIN A1c (test code = 52991) 5.9 % LIPID [id number] 00:00:00 Test Item Value Reference Range Interpretation Comments CHOLESTEROL (test code = 2210) 318 MG/DL TRIGLYCERIDES (test code = 2232) 263 MG/DL HDL CHOLESTEROL (test code = 2220) 51 MG/DL CALC LDL CHOL (test code = 2237) 214 MG/DL RISK RATIO LDL/HDL (test code = 4.20 RATIO 2238) COMPREHENSIVE METABOLIC [id number] 00:00:00 Test Item Value Reference Range Interpretation Comments GLUCOSE (test code = 2217) 113 MG/DL BUN (test code = 2208) 18 MG/DL CREATININE (test code = 2214) 0.70 MG/DL eGFR AMER. (test code 111 ML/MIN/1.73 = 57798) eGFR NON- AMER. (test 96 ML/MIN/1.73 code = 31851) CALC BUN/CREAT (test code = 26 RATIO [...] ALT (test code = 2219) 31 U/L [id number] 00:00:00 Test Item Value Reference Range Interpretation Comments TSH, THIRD GENERATION (test code 2.520 UIU/ML = 2821) [id number] 00:00:00 Test Item Value Reference Range Interpretation Comments TSH, THIRD GENERATION (test code 2.520 UIU/ML = 2821) CBC W/AUTO [id number] 00:00:00 Test Item Value Reference Range Interpretation [...] code = 1015) 346 K/UL CBC W/AUTO [id number] 00:00:00 Test Item Value Reference Range Interpretation [...] code = 1015) 346 K/UL CBC W/AUTO [id number] 00:00:00 Test Item Value Reference Range Interpretation [...] (test code = 1015) 346 K/UL HEMOGLOBIN [id number] 00:00:00 Test Item Value Reference Range Interpretation Comments HEMOGLOBIN A1c (test code = 21178) 5.9 % HEMOGLOBIN [id number] 00:00:00 Test Item Value Reference Range Interpretation Comments HEMOGLOBIN A1c (test code = 37679) 5.9 % HEMOGLOBIN [id number] 00:00:00 Test Item Value Reference Range Interpretation Comments HEMOGLOBIN A1c (test code = 72476) 5.9 % LIPID [id number] 00:00:00 Test Item Value Reference Range Interpretation Comments CHOLESTEROL (test code = 2210) 318 MG/DL TRIGLYCERIDES (test code = 2232) 263 MG/DL HDL CHOLESTEROL (test code = 2220) 51 MG/DL CALC LDL CHOL (test code = 2237) 214 MG/DL RISK RATIO LDL/HDL (test code = 4.20 RATIO 2238) LIPID [id number] 00:00:00 Test Item Value Reference Range Interpretation Comments CHOLESTEROL (test code = 2210) 318 MG/DL TRIGLYCERIDES (test code = 2232) 263 MG/DL HDL CHOLESTEROL (test code = 2220) 51 MG/DL CALC LDL CHOL (test code = 2237) 214 MG/DL RISK RATIO LDL/HDL (test code = 4.20 RATIO 2238) COMPREHENSIVE METABOLIC [id number] 00:00:00 Test Item Value Reference Range Interpretation Comments GLUCOSE (test code = 2217) 113 MG/DL BUN (test code = 2208) 18 MG/DL CREATININE (test code = 2214) 0.70 MG/DL eGFR AMER. (test code 111 ML/MIN/1.73 = 89363) eGFR NON- AMER. (test 96 ML/MIN/1.73 code = 77824) CALC BUN/CREAT (test code = 26 RATIO [...] code = 2219) 31 U/L COMPREHENSIVE METABOLIC [id number] 00:00:00 Test Item Value Reference Range Interpretation Comments GLUCOSE (test code = 2217) 113 MG/DL BUN (test code = 2208) 18 MG/DL CREATININE (test code = 2214) 0.70 MG/DL eGFR AMER. (test code 111 ML/MIN/1.73 = 87422) eGFR NON- AMER. (test 96 ML/MIN/1.73 code = 78187) CALC BUN/CREAT (test code = 26 RATIO [...] ALT (test code = 2219) 31 U/L [id number] 00:00:00 Test Item Value Reference Range Interpretation Comments TSH, THIRD GENERATION (test code 2.520 UIU/ML = 2821) [id number] 00:00:00 Test Item Value Reference Range Interpretation Comments TSH, THIRD GENERATION (test code 2.520 UIU/ML = 2821) [id number] 00:00:00 Test Item Value Reference Range Interpretation Comments TSH, THIRD GENERATION (test code 2.520 UIU/ML = 2821) CULTURE, [id number] 00:00:00 Test Item Value Reference Range Interpretation Comments CULTURE, URINE (test SPECIMEN NUMBER: code = 39088) [id number] CULTURE, [id number] 00:00:00 Test Item Value Reference Range Interpretation Comments CULTURE, URINE (test SPECIMEN NUMBER: code = 88309) [id number] CULTURE, [id number] 00:00:00 Test Item Value Reference Range Interpretation Comments CULTURE, URINE (test SPECIMEN NUMBER: code = 21061) [id number] CULTURE, [id number] 00:00:00 Test Item Value Reference Range Interpretation Comments CULTURE, URINE (test SPECIMEN NUMBER: code = 45695) [id number] CULTURE, [id number] 00:00:00 Test Item Value Reference Range Interpretation Comments CULTURE, URINE (test SPECIMEN NUMBER: code = 94694) [id number] CULTURE, [id number] 00:00:00 Test Item Value Reference Range Interpretation Comments CULTURE, URINE (test SPECIMEN NUMBER: code = 81467) [id number] CULTURE, [id number] 00:00:00 Test Item Value Reference Range Interpretation Comments CULTURE, URINE (test SPECIMEN NUMBER: code = 02152) [id number] CULTURE, [id number] 00:00:00 Test Item Value Reference Range Interpretation Comments CULTURE, URINE (test SPECIMEN NUMBER: code = 75323) [id number] CULTURE, [id number] 00:00:00 Test Item Value Reference Range Interpretation Comments CULTURE, URINE (test SPECIMEN NUMBER: code = 01430) [id number] CULTURE, [id number] 00:00:00 Test Item Value Reference Range Interpretation Comments CULTURE, URINE (test SPECIMEN NUMBER: code = 01052) [id number] CULTURE, [id number] 00:00:00 Test Item Value Reference Range Interpretation Comments CULTURE, URINE (test SPECIMEN NUMBER: code = 53567) [id number] CULTURE, [id number] 00:00:00 Test Item Value Reference Range Interpretation Comments CULTURE, URINE (test SPECIMEN NUMBER: code = 97343) [id number] CULTURE, [id number] 00:00:00 Test Item Value Reference Range Interpretation Comments CULTURE, URINE (test SPECIMEN NUMBER: code = 45830) [id number] CULTURE, [id number] 00:00:00 Test Item Value Reference Range Interpretation Comments CULTURE, URINE (test SPECIMEN NUMBER: code = 32030) [id number] BASIC METABOLIC [id number] 00:00:00 Test Item Value Reference Range Interpretation Comments GLUCOSE (test code = 2217) 135 MG/DL BUN (test code = 2208) 25 MG/DL CREATININE (test code = 2214) 0.76 MG/DL eGFR AMER. (test code 101 ML/MIN/1.73 = 42780) eGFR NON- AMER. (test 87 ML/MIN/1.73 code = 99286) SODIUM (test code = 2231) 139 MEQ/L POTASSIUM (test code = 2228) 4.7 MEQ/L CHLORIDE (test code = 2215) 99 MEQ/L CARBON DIOXIDE (test code = 26 MEQ/L 2206) CALCIUM (test code = 2209) 9.4 MG/DL BASIC METABOLIC [id number] 00:00:00 Test Item Value Reference Range Interpretation Comments GLUCOSE (test code = 2217) 135 MG/DL BUN (test code = 2208) 25 MG/DL CREATININE (test code = 2214) 0.76 MG/DL eGFR AMER. (test code 101 ML/MIN/1.73 = 40921) eGFR NON- AMER. (test 87 ML/MIN/1.73 code = 13238) SODIUM (test code = 2231) 139 MEQ/L POTASSIUM (test code = 2228) 4.7 MEQ/L CHLORIDE (test code = 2215) 99 MEQ/L CARBON DIOXIDE (test code = 26 MEQ/L 2206) CALCIUM (test code = 2209) 9.4 MG/DL LIPID [id number] 00:00:00 Test Item Value Reference Range Interpretation Comments CHOLESTEROL (test code = 2210) 262 MG/DL TRIGLYCERIDES (test code = 2232) 300 MG/DL HDL CHOLESTEROL (test code = 2220) 36 MG/DL CALC LDL CHOL (test code = 2237) 166 MG/DL RISK RATIO LDL/HDL (test code = 4.61 RATIO 2238) LIPID [id number] 00:00:00 Test Item Value Reference Range Interpretation Comments CHOLESTEROL (test code = 2210) 262 MG/DL TRIGLYCERIDES (test code = 2232) 300 MG/DL HDL CHOLESTEROL (test code = 2220) 36 MG/DL CALC LDL CHOL (test code = 2237) 166 MG/DL RISK RATIO LDL/HDL (test code = 4.61 RATIO 2238) HEMOGLOBIN [id number] 00:00:00 Test Item Value Reference Range Interpretation Comments HEMOGLOBIN A1c (test code = 12569) 6.2 % HEMOGLOBIN [id number] 00:00:00 Test Item Value Reference Range Interpretation Comments HEMOGLOBIN A1c (test code = 29571) 6.2 % HEMOGLOBIN [id number] 00:00:00 Test Item Value Reference Range Interpretation Comments HEMOGLOBIN A1c (test code = 35295) 6.2 % [id number] 00:00:00 Test Item Value Reference Range Interpretation Comments TSH, THIRD GENERATION (test code 0.988 UIU/ML = 2821) [id number] 00:00:00 Test Item Value Reference Range Interpretation Comments TSH, THIRD GENERATION (test code 0.988 UIU/ML = 2821) [id number] 00:00:00 Test Item Value Reference Range Interpretation Comments TSH, THIRD GENERATION (test code 0.988 UIU/ML = 2821) BASIC METABOLIC [id number] 00:00:00 Test Item Value Reference Range Interpretation Comments GLUCOSE (test code = 2217) 135 MG/DL BUN (test code = 2208) 25 MG/DL CREATININE (test code = 2214) 0.76 MG/DL eGFR AMER. (test code 101 ML/MIN/1.73 = 00842) eGFR NON- AMER. (test 87 ML/MIN/1.73 code = 22635) SODIUM (test code = 2231) 139 MEQ/L POTASSIUM (test code = 2228) 4.7 MEQ/L CHLORIDE (test code = 2215) 99 MEQ/L CARBON DIOXIDE (test code = 26 MEQ/L 2206) CALCIUM (test code = 2209) 9.4 MG/DL BASIC METABOLIC [id number] 00:00:00 Test Item Value Reference Range Interpretation Comments GLUCOSE (test code = 2217) 135 MG/DL BUN (test code = 2208) 25 MG/DL CREATININE (test code = 2214) 0.76 MG/DL eGFR AMER. (test code 101 ML/MIN/1.73 = 73164) eGFR NON- AMER. (test 87 ML/MIN/1.73 code = 32716) SODIUM (test code = 2231) 139 MEQ/L POTASSIUM (test code = 2228) 4.7 MEQ/L CHLORIDE (test code = 2215) 99 MEQ/L CARBON DIOXIDE (test code = 26 MEQ/L 2206) CALCIUM (test code = 2209) 9.4 MG/DL LIPID [id number] 00:00:00 Test Item Value Reference Range Interpretation Comments CHOLESTEROL (test code = 2210) 262 MG/DL TRIGLYCERIDES (test code = 2232) 300 MG/DL HDL CHOLESTEROL (test code = 2220) 36 MG/DL CALC LDL CHOL (test code = 2237) 166 MG/DL RISK RATIO LDL/HDL (test code = 4.61 RATIO 2238) LIPID [id number] 00:00:00 Test Item Value Reference Range Interpretation Comments CHOLESTEROL (test code = 2210) 262 MG/DL TRIGLYCERIDES (test code = 2232) 300 MG/DL HDL CHOLESTEROL (test code = 2220) 36 MG/DL CALC LDL CHOL (test code = 2237) 166 MG/DL RISK RATIO LDL/HDL (test code = 4.61 RATIO 2238) HEMOGLOBIN [id number] 00:00:00 Test Item Value Reference Range Interpretation Comments HEMOGLOBIN A1c (test code = 55551) 6.2 % HEMOGLOBIN [id number] 00:00:00 Test Item Value Reference Range Interpretation Comments HEMOGLOBIN A1c (test code = 26398) 6.2 % HEMOGLOBIN [id number] 00:00:00 Test Item Value Reference Range Interpretation Comments HEMOGLOBIN A1c (test code = 89964) 6.2 % [id number] 00:00:00 Test Item Value Reference Range Interpretation Comments TSH, THIRD GENERATION (test code 0.988 UIU/ML = 2821) [id number] 00:00:00 Test Item Value Reference Range Interpretation Comments TSH, THIRD GENERATION (test code 0.988 UIU/ML = 2821) [id number] 00:00:00 Test Item Value Reference Range Interpretation Comments TSH, THIRD GENERATION (test code 0.988 UIU/ML = 2821) BASIC METABOLIC [id number] 00:00:00 Test Item Value Reference Range Interpretation Comments GLUCOSE (test code = 2217) 135 MG/DL BUN (test code = 2208) 25 MG/DL CREATININE (test code = 2214) 0.76 MG/DL eGFR AMER. (test code 101 ML/MIN/1.73 = 61978) eGFR NON- AMER. (test 87 ML/MIN/1.73 code = 95696) SODIUM (test code = 2231) 139 MEQ/L POTASSIUM (test code = 2228) 4.7 MEQ/L CHLORIDE (test code = 2215) 99 MEQ/L CARBON DIOXIDE (test code = 26 MEQ/L 220) CALCIUM (test code = 2209) 9.4 MG/DL LIPID [id number] 00:00:00 Test Item Value Reference Range Interpretation Comments CHOLESTEROL (test code = 2210) 262 MG/DL TRIGLYCERIDES (test code = 2232) 300 MG/DL HDL CHOLESTEROL (test code = 2220) 36 MG/DL CALC LDL CHOL (test code = 2237) 166 MG/DL RISK RATIO LDL/HDL (test code = 4.61 RATIO 2238) HEMOGLOBIN [id number] 00:00:00 Test Item Value Reference Range Interpretation Comments HEMOGLOBIN A1c (test code = 65821) 6.2 % HEMOGLOBIN [id number] 00:00:00 Test Item Value Reference Range Interpretation Comments HEMOGLOBIN A1c (test code = 95319) 6.2 % [id number] 00:00:00 Test Item Value Reference Range Interpretation Comments TSH, THIRD GENERATION (test code 0.988 UIU/ML = 2821) [id number] 00:00:00 Test Item Value Reference Range Interpretation Comments TSH, THIRD GENERATION (test code 0.988 UIU/ML = 2821) BASIC METABOLIC [id number] 00:00:00 Test Item Value Reference Range Interpretation Comments GLUCOSE (test code = 2217) 135 MG/DL BUN (test code = 2208) 25 MG/DL CREATININE (test code = 2214) 0.76 MG/DL eGFR AMER. (test code 101 ML/MIN/1.73 = 51503) eGFR NON- AMER. (test 87 ML/MIN/1.73 code = 58484) SODIUM (test code = 2231) 139 MEQ/L POTASSIUM (test code = 2228) 4.7 MEQ/L CHLORIDE (test code = 2215) 99 MEQ/L CARBON DIOXIDE (test code = 26 MEQ/L 2206) CALCIUM (test code = 2209) 9.4 MG/DL BASIC METABOLIC [id number] 00:00:00 Test Item Value Reference Range Interpretation Comments GLUCOSE (test code = 2217) 135 MG/DL BUN (test code = 2208) 25 MG/DL CREATININE (test code = 2214) 0.76 MG/DL eGFR AMER. (test code 101 ML/MIN/1.73 = 47025) eGFR NON- AMER. (test 87 ML/MIN/1.73 code = 23509) SODIUM (test code = 2231) 139 MEQ/L POTASSIUM (test code = 2228) 4.7 MEQ/L CHLORIDE (test code = 2215) 99 MEQ/L CARBON DIOXIDE (test code = 26 MEQ/L 2206) CALCIUM (test code = 2209) 9.4 MG/DL LIPID [id number] 00:00:00 Test Item Value Reference Range Interpretation Comments CHOLESTEROL (test code = 2210) 262 MG/DL TRIGLYCERIDES (test code = 2232) 300 MG/DL HDL CHOLESTEROL (test code = 2220) 36 MG/DL CALC LDL CHOL (test code = 2237) 166 MG/DL RISK RATIO LDL/HDL (test code = 4.61 RATIO 2238) LIPID [id number] 00:00:00 Test Item Value Reference Range Interpretation Comments CHOLESTEROL (test code = 2210) 262 MG/DL TRIGLYCERIDES (test code = 2232) 300 MG/DL HDL CHOLESTEROL (test code = 2220) 36 MG/DL CALC LDL CHOL (test code = 2237) 166 MG/DL RISK RATIO LDL/HDL (test code = 4.61 RATIO 2238) HEMOGLOBIN [id number] 00:00:00 Test Item Value Reference Range Interpretation Comments HEMOGLOBIN A1c (test code = 15795) 6.2 % HEMOGLOBIN [id number] 00:00:00 Test Item Value Reference Range Interpretation Comments HEMOGLOBIN A1c (test code = 80889) 6.2 % HEMOGLOBIN [id number] 00:00:00 Test Item Value Reference Range Interpretation Comments HEMOGLOBIN A1c (test code = 50789) 6.2 % [id number] 00:00:00 Test Item Value Reference Range Interpretation Comments TSH, THIRD GENERATION (test code 0.988 UIU/ML = 2821) [id number] 00:00:00 Test Item Value Reference Range Interpretation Comments TSH, THIRD GENERATION (test code 0.988 UIU/ML = 2821) [id number] 00:00:00 Test Item Value Reference Range Interpretation Comments TSH, THIRD GENERATION (test code 0.988 UIU/ML = 2821) COMPREHENSIVE METABOLIC [id number] 00:00:00 Test Item Value Reference Range Interpretation Comments GLUCOSE (test code = 2217) 109 MG/DL BUN (test code = 2208) 25 MG/DL CREATININE (test code = 2214) 0.78 MG/DL eGFR AMER. (test code 98 ML/MIN/1.73 = 34710) eGFR NON- AMER. (test 84 ML/MIN/1.73 code = 34111) CALC BUN/CREAT (test code = 32 RATIO [...] code = 2219) 25 U/L COMPREHENSIVE METABOLIC [id number] 00:00:00 Test Item Value Reference Range Interpretation Comments GLUCOSE (test code = 2217) 109 MG/DL BUN (test code = 2208) 25 MG/DL CREATININE (test code = 2214) 0.78 MG/DL eGFR AMER. (test code 98 ML/MIN/1.73 = 05234) eGFR NON- AMER. (test 84 ML/MIN/1.73 code = 33397) CALC BUN/CREAT (test code = 32 RATIO [...] (test code = 2219) 25 U/L LIPID [id number] 00:00:00 Test Item Value Reference Range Interpretation Comments CHOLESTEROL (test code = 2210) 295 MG/DL TRIGLYCERIDES (test code = 2232) 218 MG/DL HDL CHOLESTEROL (test code = 2220) 46 MG/DL CALC LDL CHOL (test code = 2237) 205 MG/DL RISK RATIO LDL/HDL (test code = 4.47 RATIO 2238) LIPID [id number] 00:00:00 Test Item Value Reference Range Interpretation Comments CHOLESTEROL (test code = 2210) 295 MG/DL TRIGLYCERIDES (test code = 2232) 218 MG/DL HDL CHOLESTEROL (test code = 2220) 46 MG/DL CALC LDL CHOL (test code = 2237) 205 MG/DL RISK RATIO LDL/HDL (test code = 4.47 RATIO 2238) HEMOGLOBIN [id number] 00:00:00 Test Item Value Reference Range Interpretation Comments HEMOGLOBIN A1c (test code = 63327) 7.0 % HEMOGLOBIN [id number] 00:00:00 Test Item Value Reference Range Interpretation Comments HEMOGLOBIN A1c (test code = 38313) 7.0 % HEMOGLOBIN [id number] 00:00:00 Test Item Value Reference Range Interpretation Comments HEMOGLOBIN A1c (test code = 53847) 7.0 % [id number] 00:00:00 Test Item Value Reference Range Interpretation Comments TSH, THIRD GENERATION (test code 0.565 UIU/ML = 2821) [id number] 00:00:00 Test Item Value Reference Range Interpretation Comments TSH, THIRD GENERATION (test code 0.565 UIU/ML = 2821) [id number] 00:00:00 Test Item Value Reference Range Interpretation Comments TSH, THIRD GENERATION (test code 0.565 UIU/ML = 2821) COMPREHENSIVE METABOLIC [id number] 00:00:00 Test Item Value Reference Range Interpretation Comments GLUCOSE (test code = 2217) 109 MG/DL BUN (test code = 2208) 25 MG/DL CREATININE (test code = 2214) 0.78 MG/DL eGFR AMER. (test code 98 ML/MIN/1.73 = 18408) eGFR NON- AMER. (test 84 ML/MIN/1.73 code = 63184) CALC BUN/CREAT (test code = 32 RATIO [...] code = 2219) 25 U/L COMPREHENSIVE METABOLIC [id number] 00:00:00 Test Item Value Reference Range Interpretation Comments GLUCOSE (test code = 2217) 109 MG/DL BUN (test code = 2208) 25 MG/DL CREATININE (test code = 2214) 0.78 MG/DL eGFR AMER. (test code 98 ML/MIN/1.73 = 40038) eGFR NON- AMER. (test 84 ML/MIN/1.73 code = 62222) CALC BUN/CREAT (test code = 32 RATIO [...] (test code = 2219) 25 U/L LIPID [id number] 00:00:00 Test Item Value Reference Range Interpretation Comments CHOLESTEROL (test code = 2210) 295 MG/DL TRIGLYCERIDES (test code = 2232) 218 MG/DL HDL CHOLESTEROL (test code = 2220) 46 MG/DL CALC LDL CHOL (test code = 2237) 205 MG/DL RISK RATIO LDL/HDL (test code = 4.47 RATIO 2238) LIPID [id number] 00:00:00 Test Item Value Reference Range Interpretation Comments CHOLESTEROL (test code = 2210) 295 MG/DL TRIGLYCERIDES (test code = 2232) 218 MG/DL HDL CHOLESTEROL (test code = 2220) 46 MG/DL CALC LDL CHOL (test code = 2237) 205 MG/DL RISK RATIO LDL/HDL (test code = 4.47 RATIO 2238) HEMOGLOBIN [id number] 00:00:00 Test Item Value Reference Range Interpretation Comments HEMOGLOBIN A1c (test code = 37891) 7.0 % HEMOGLOBIN [id number] 00:00:00 Test Item Value Reference Range Interpretation Comments HEMOGLOBIN A1c (test code = 47233) 7.0 % HEMOGLOBIN [id number] 00:00:00 Test Item Value Reference Range Interpretation Comments HEMOGLOBIN A1c (test code = 06689) 7.0 % [id number] 00:00:00 Test Item Value Reference Range Interpretation Comments TSH, THIRD GENERATION (test code 0.565 UIU/ML = 2821) [id number] 00:00:00 Test Item Value Reference Range Interpretation Comments TSH, THIRD GENERATION (test code 0.565 UIU/ML = 2821) [id number] 00:00:00 Test Item Value Reference Range Interpretation Comments TSH, THIRD GENERATION (test code 0.565 UIU/ML = 2821) COMPREHENSIVE METABOLIC [id number] 00:00:00 Test Item Value Reference Range Interpretation Comments GLUCOSE (test code = 2217) 109 MG/DL BUN (test code = 2208) 25 MG/DL CREATININE (test code = 2214) 0.78 MG/DL eGFR AMER. (test code 98 ML/MIN/1.73 = 54022) eGFR NON- AMER. (test 84 ML/MIN/1.73 code = 25469) CALC BUN/CREAT (test code = 32 RATIO [...] (test code = 2219) 25 U/L LIPID [id number] 00:00:00 Test Item Value Reference Range Interpretation Comments CHOLESTEROL (test code = 2210) 295 MG/DL TRIGLYCERIDES (test code = 2232) 218 MG/DL HDL CHOLESTEROL (test code = 2220) 46 MG/DL CALC LDL CHOL (test code = 2237) 205 MG/DL RISK RATIO LDL/HDL (test code = 4.47 RATIO 2238) HEMOGLOBIN [id number] 00:00:00 Test Item Value Reference Range Interpretation Comments HEMOGLOBIN A1c (test code = 25060) 7.0 % HEMOGLOBIN [id number] 00:00:00 Test Item Value Reference Range Interpretation Comments HEMOGLOBIN A1c (test code = 33897) 7.0 % [id number] 00:00:00 Test Item Value Reference Range Interpretation Comments TSH, THIRD GENERATION (test code 0.565 UIU/ML = 2821) [id number] 00:00:00 Test Item Value Reference Range Interpretation Comments TSH, THIRD GENERATION (test code 0.565 UIU/ML = 2821) COMPREHENSIVE METABOLIC [id number] 00:00:00 Test Item Value Reference Range Interpretation Comments GLUCOSE (test code = 2217) 109 MG/DL BUN (test code = 2208) 25 MG/DL CREATININE (test code = 2214) 0.78 MG/DL eGFR AMER. (test code 98 ML/MIN/1.73 = 56984) eGFR NON- AMER. (test 84 ML/MIN/1.73 code = 38060) CALC BUN/CREAT (test code = 32 RATIO [...] code = 2219) 25 U/L COMPREHENSIVE METABOLIC [id number] 00:00:00 Test Item Value Reference Range Interpretation Comments GLUCOSE (test code = 2217) 109 MG/DL BUN (test code = 2208) 25 MG/DL CREATININE (test code = 2214) 0.78 MG/DL eGFR AMER. (test code 98 ML/MIN/1.73 = 19636) eGFR NON- AMER. (test 84 ML/MIN/1.73 code = 00221) CALC BUN/CREAT (test code = 32 RATIO [...] (test code = 2219) 25 U/L LIPID [id number] 00:00:00 Test Item Value Reference Range Interpretation Comments CHOLESTEROL (test code = 2210) 295 MG/DL TRIGLYCERIDES (test code = 2232) 218 MG/DL HDL CHOLESTEROL (test code = 2220) 46 MG/DL CALC LDL CHOL (test code = 2237) 205 MG/DL RISK RATIO LDL/HDL (test code = 4.47 RATIO 2238) LIPID [id number] 00:00:00 Test Item Value Reference Range Interpretation Comments CHOLESTEROL (test code = 2210) 295 MG/DL TRIGLYCERIDES (test code = 2232) 218 MG/DL HDL CHOLESTEROL (test code = 2220) 46 MG/DL CALC LDL CHOL (test code = 2237) 205 MG/DL RISK RATIO LDL/HDL (test code = 4.47 RATIO 2238) HEMOGLOBIN [id number] 00:00:00 Test Item Value Reference Range Interpretation Comments HEMOGLOBIN A1c (test code = 84261) 7.0 % HEMOGLOBIN [id number] 00:00:00 Test Item Value Reference Range Interpretation Comments HEMOGLOBIN A1c (test code = 75664) 7.0 % HEMOGLOBIN [id number] 00:00:00 Test Item Value Reference Range Interpretation Comments HEMOGLOBIN A1c (test code = 70821) 7.0 % [id number] 00:00:00 Test Item Value Reference Range Interpretation Comments TSH, THIRD GENERATION (test code 0.565 UIU/ML = 2821) [id number] 00:00:00 Test Item Value Reference Range Interpretation Comments TSH, THIRD GENERATION (test code 0.565 UIU/ML = 2821) [id number] 00:00:00 Test Item Value Reference Range Interpretation Comments TSH, THIRD GENERATION (test code 0.565 UIU/ML = 2821) [id number] 00:00:00 Test Item Value Reference Range Interpretation Comments TSH, THIRD GENERATION (test code 0.379 UIU/ML = 2821) [id number] 00:00:00 Test Item Value Reference Range Interpretation Comments TSH, THIRD GENERATION (test code 0.379 UIU/ML = 2821) [id number] 00:00:00 Test Item Value Reference Range Interpretation Comments TSH, THIRD GENERATION (test code 0.379 UIU/ML = 2821) [id number] 00:00:00 Test Item Value Reference Range Interpretation Comments TSH, THIRD GENERATION (test code 0.379 UIU/ML = 2821) [id number] 00:00:00 Test Item Value Reference Range Interpretation Comments TSH, THIRD GENERATION (test code 0.379 UIU/ML = 2821) [id number] 00:00:00 Test Item Value Reference Range Interpretation Comments TSH, THIRD GENERATION (test code 0.379 UIU/ML = 2821) [id number] 00:00:00 Test Item Value Reference Range Interpretation Comments TSH, THIRD GENERATION (test code 0.379 UIU/ML = 2821) [id number] 00:00:00 Test Item Value Reference Range Interpretation Comments TSH, THIRD GENERATION (test code 0.379 UIU/ML = 2821) [id number] 00:00:00 Test Item Value Reference Range Interpretation Comments TSH, THIRD GENERATION (test code 0.379 UIU/ML = 2821) [id number] 00:00:00 Test Item Value Reference Range Interpretation Comments TSH, THIRD GENERATION (test code 0.379 UIU/ML = 2821) [id number] 00:00:00 Test Item Value Reference Range Interpretation Comments TSH, THIRD GENERATION (test code 0.379 UIU/ML = 2821) CULTURE, [id number] 00:00:00 Test Item Value Reference Range Interpretation Comments CULTURE, URINE (test SPECIMEN NUMBER: code = 52211) [id number] CULTURE, [id number] 00:00:00 Test Item Value Reference Range Interpretation Comments CULTURE, URINE (test SPECIMEN NUMBER: code = 78388) [id number] CULTURE, [id number] 00:00:00 Test Item Value Reference Range Interpretation Comments CULTURE, URINE (test SPECIMEN NUMBER: code = 56949) [id number] CULTURE, [id number] 00:00:00 Test Item Value Reference Range Interpretation Comments CULTURE, URINE (test SPECIMEN NUMBER: code = 28710) [id number] CULTURE, [id number] 00:00:00 Test Item Value Reference Range Interpretation Comments CULTURE, URINE (test SPECIMEN NUMBER: code = 21585) [id number] CULTURE, [id number] 00:00:00 Test Item Value Reference Range Interpretation Comments CULTURE, URINE (test SPECIMEN NUMBER: code = 51603) [id number] CULTURE, [id number] 00:00:00 Test Item Value Reference Range Interpretation Comments CULTURE, URINE (test SPECIMEN NUMBER: code = 84688) [id number] COMPREHENSIVE METABOLIC [id number] 00:00:00 Test Item Value Reference Range Interpretation Comments GLUCOSE (test code = 2217) 128 MG/DL BUN (test code = 2208) 26 MG/DL CREATININE (test code = 2214) 0.92 MG/DL eGFR AMER. (test code 81 ML/MIN/1.73 = 09226) eGFR NON- AMER. (test 70 ML/MIN/1.73 code = 33519) CALC BUN/CREAT (test code = 28 RATIO [...] code = 2219) 29 U/L COMPREHENSIVE METABOLIC [id number] 00:00:00 Test Item Value Reference Range Interpretation Comments GLUCOSE (test code = 2217) 128 MG/DL BUN (test code = 2208) 26 MG/DL CREATININE (test code = 2214) 0.92 MG/DL eGFR AMER. (test code 81 ML/MIN/1.73 = 95101) eGFR NON- AMER. (test 70 ML/MIN/1.73 code = 32735) CALC BUN/CREAT (test code = 28 RATIO [...] code = 2219) 29 U/L ACUTE HEPATITIS [id number] 00:00:00 Test Item Value Reference Range Interpretation Comments HEPATITIS A IgM (test code = NON-REACTIVE 67097) HEPATITIS B CORE IgM (test code NON-REACTIVE = 4644) HEPATITIS B SURF AG (test code = NON-REACTIVE 2739) HEPATITIS C ANTIBODY (test code NON-REACTIVE = 4675) INTERPRETATION HEPATITIS A: (NOTE) (test code = 2552) INTERPRETATION HEPATITIS B: (NOTE) (test code = 92373) INTERPRETATION HEPATITIS C: (NOTE) (test code = 15692) ACUTE HEPATITIS [id number] 00:00:00 Test Item Value Reference Range Interpretation Comments HEPATITIS A IgM (test code = NON-REACTIVE 38468) HEPATITIS B CORE IgM (test code NON-REACTIVE = 4644) HEPATITIS B SURF AG (test code = NON-REACTIVE 2739) HEPATITIS C ANTIBODY (test code NON-REACTIVE = 4675) INTERPRETATION HEPATITIS A: (NOTE) (test code = 2552) INTERPRETATION HEPATITIS B: (NOTE) (test code = 20684) INTERPRETATION HEPATITIS C: (NOTE) (test code = 06979) [id number] 00:00:00 Test Item Value Reference Range Interpretation Comments AMYLASE (test code = 2205) 32 U/L [id number] 00:00:00 Test Item Value Reference Range Interpretation Comments AMYLASE (test code = 2205) 32 U/L [id number] 00:00:00 Test Item Value Reference Range Interpretation Comments LIPASE (test code = 2057) 22 U/L [id number] 00:00:00 Test Item Value Reference Range Interpretation Comments LIPASE (test code = 2057) 22 U/L [id number] 00:00:00 Test Item Value Reference Range Interpretation Comments LIPASE (test code = 2057) 22 U/L COMPREHENSIVE METABOLIC [id number] 00:00:00 Test Item Value Reference Range Interpretation Comments GLUCOSE (test code = 2217) 128 MG/DL BUN (test code = 2208) 26 MG/DL CREATININE (test code = 2214) 0.92 MG/DL eGFR AMER. (test code 81 ML/MIN/1.73 = 39926) eGFR NON- AMER. (test 70 ML/MIN/1.73 code = 79564) CALC BUN/CREAT (test code = 28 RATIO [...] code = 2219) 29 U/L COMPREHENSIVE METABOLIC [id number] 00:00:00 Test Item Value Reference Range Interpretation Comments GLUCOSE (test code = 2217) 128 MG/DL BUN (test code = 2208) 26 MG/DL CREATININE (test code = 2214) 0.92 MG/DL eGFR AMER. (test code 81 ML/MIN/1.73 = 83375) eGFR NON- AMER. (test 70 ML/MIN/1.73 code = 05938) CALC BUN/CREAT (test code = 28 RATIO [...] code = 2219) 29 U/L ACUTE HEPATITIS [id number] 00:00:00 Test Item Value Reference Range Interpretation Comments HEPATITIS A IgM (test code = NON-REACTIVE 92660) HEPATITIS B CORE IgM (test code NON-REACTIVE = 4644) HEPATITIS B SURF AG (test code = NON-REACTIVE 2739) HEPATITIS C ANTIBODY (test code NON-REACTIVE = 4675) INTERPRETATION HEPATITIS A: (NOTE) (test code = 2552) INTERPRETATION HEPATITIS B: (NOTE) (test code = 52732) INTERPRETATION HEPATITIS C: (NOTE) (test code = 84834) ACUTE HEPATITIS [id number] 00:00:00 Test Item Value Reference Range Interpretation Comments HEPATITIS A IgM (test code = NON-REACTIVE 88188) HEPATITIS B CORE IgM (test code NON-REACTIVE = 4644) HEPATITIS B SURF AG (test code = NON-REACTIVE 2739) HEPATITIS C ANTIBODY (test code NON-REACTIVE = 4675) INTERPRETATION HEPATITIS A: (NOTE) (test code = 2552) INTERPRETATION HEPATITIS B: (NOTE) (test code = 67653) INTERPRETATION HEPATITIS C: (NOTE) (test code = 28525) [id number] 00:00:00 Test Item Value Reference Range Interpretation Comments AMYLASE (test code = 2205) 32 U/L [id number] 00:00:00 Test Item Value Reference Range Interpretation Comments AMYLASE (test code = 2205) 32 U/L [id number] 00:00:00 Test Item Value Reference Range Interpretation Comments LIPASE (test code = 2057) 22 U/L [id number] 00:00:00 Test Item Value Reference Range Interpretation Comments LIPASE (test code = 2057) 22 U/L [id number] 00:00:00 Test Item Value Reference Range Interpretation Comments LIPASE (test code = 2057) 22 U/L COMPREHENSIVE METABOLIC [id number] 00:00:00 Test Item Value Reference Range Interpretation Comments GLUCOSE (test code = 2217) 128 MG/DL BUN (test code = 2208) 26 MG/DL CREATININE (test code = 2214) 0.92 MG/DL eGFR AMER. (test code 81 ML/MIN/1.73 = 47401) eGFR NON- AMER. (test 70 ML/MIN/1.73 code = 08655) CALC BUN/CREAT (test code = 28 RATIO [...] code = 2219) 29 U/L ACUTE HEPATITIS [id number] 00:00:00 Test Item Value Reference Range Interpretation Comments HEPATITIS A IgM (test code = NON-REACTIVE 16831) HEPATITIS B CORE IgM (test code NON-REACTIVE = 5952) HEPATITIS B SURF AG (test code = NON-REACTIVE 0275) HEPATITIS C ANTIBODY (test code NON-REACTIVE = 0303) INTERPRETATION HEPATITIS A: (NOTE) (test code = 2552) INTERPRETATION HEPATITIS B: (NOTE) (test code = 28436) INTERPRETATION HEPATITIS C: (NOTE) (test code = 62567) [id number] 00:00:00 Test Item Value Reference Range Interpretation Comments AMYLASE (test code = 2205) 32 U/L [id number] 00:00:00 Test Item Value Reference Range Interpretation Comments LIPASE (test code = 2058) 22 U/L [id number] 00:00:00 Test Item Value Reference Range Interpretation Comments LIPASE (test code = 2058) 22 U/L COMPREHENSIVE METABOLIC [id number] 00:00:00 Test Item Value Reference Range Interpretation Comments GLUCOSE (test code = 2217) 128 MG/DL BUN (test code = 2208) 26 MG/DL CREATININE (test code = 2214) 0.92 MG/DL eGFR AMER. (test code 81 ML/MIN/1.73 = 17566) eGFR NON- AMER. (test 70 ML/MIN/1.73 code = 10576) CALC BUN/CREAT (test code = 28 RATIO [...] code = 2219) 29 U/L COMPREHENSIVE METABOLIC [id number] 00:00:00 Test Item Value Reference Range Interpretation Comments GLUCOSE (test code = 2217) 128 MG/DL BUN (test code = 2208) 26 MG/DL CREATININE (test code = 2214) 0.92 MG/DL eGFR AMER. (test code 81 ML/MIN/1.73 = 66621) eGFR NON- AMER. (test 70 ML/MIN/1.73 code = 39759) CALC BUN/CREAT (test code = 28 RATIO [...] code = 2219) 29 U/L ACUTE HEPATITIS [id number] 00:00:00 Test Item Value Reference Range Interpretation Comments HEPATITIS A IgM (test code = NON-REACTIVE 77360) HEPATITIS B CORE IgM (test code NON-REACTIVE = 4644) HEPATITIS B SURF AG (test code = NON-REACTIVE 2739) HEPATITIS C ANTIBODY (test code NON-REACTIVE = 4675) INTERPRETATION HEPATITIS A: (NOTE) (test code = 2552) INTERPRETATION HEPATITIS B: (NOTE) (test code = 43717) INTERPRETATION HEPATITIS C: (NOTE) (test code = 25721) ACUTE HEPATITIS [id number] 00:00:00 Test Item Value Reference Range Interpretation Comments HEPATITIS A IgM (test code = NON-REACTIVE 54636) HEPATITIS B CORE IgM (test code NON-REACTIVE = 4644) HEPATITIS B SURF AG (test code = NON-REACTIVE 2739) HEPATITIS C ANTIBODY (test code NON-REACTIVE = 4675) INTERPRETATION HEPATITIS A: (NOTE) (test code = 2552) INTERPRETATION HEPATITIS B: (NOTE) (test code = 69919) INTERPRETATION HEPATITIS C: (NOTE) (test code = 62331) [id number] 00:00:00 Test Item Value Reference Range Interpretation Comments AMYLASE (test code = 2205) 32 U/L [id number] 00:00:00 Test Item Value Reference Range Interpretation Comments AMYLASE (test code = 2205) 32 U/L [id number] 00:00:00 Test Item Value Reference Range Interpretation Comments LIPASE (test code = 2057) 22 U/L [id number] 00:00:00 Test Item Value Reference Range Interpretation Comments LIPASE (test code = 2057) 22 U/L [id number] 00:00:00 Test Item Value Reference Range Interpretation Comments LIPASE (test code = 2057) 22 U/L [id number] 00:00:00 Test Item Value Reference Range Interpretation Comments TSH, THIRD GENERATION (test code 4.890 UIU/ML = 2821) [id number] 00:00:00 Test Item Value Reference Range Interpretation Comments TSH, THIRD GENERATION (test code 4.890 UIU/ML = 2821) [id number] 00:00:00 Test Item Value Reference Range Interpretation Comments TSH, THIRD GENERATION (test code 4.890 UIU/ML = 2821) COMPREHENSIVE METABOLIC [id number] 00:00:00 Test Item Value Reference Range Interpretation Comments GLUCOSE (test code = 2217) 121 MG/DL BUN (test code = 2208) 40 MG/DL CREATININE (test code = 2214) 1.48 MG/DL eGFR AMER. (test code 45 ML/MIN/1.73 = 97480) eGFR NON- AMER. (test 39 ML/MIN/1.73 code = 74338) CALC BUN/CREAT (test code = 27 RATIO [...] code = 2219) 20 U/L COMPREHENSIVE METABOLIC [id number] 00:00:00 Test Item Value Reference Range Interpretation Comments GLUCOSE (test code = 2217) 121 MG/DL BUN (test code = 2208) 40 MG/DL CREATININE (test code = 2214) 1.48 MG/DL eGFR AMER. (test code 45 ML/MIN/1.73 = 05851) eGFR NON- AMER. (test 39 ML/MIN/1.73 code = 02742) CALC BUN/CREAT (test code = 27 RATIO [...] ALT (test code = 2219) 20 U/L [id number] 00:00:00 Test Item Value Reference Range Interpretation Comments TSH, THIRD GENERATION (test code 4.890 UIU/ML = 2821) [id number] 00:00:00 Test Item Value Reference Range Interpretation Comments TSH, THIRD GENERATION (test code 4.890 UIU/ML = 2821) [id number] 00:00:00 Test Item Value Reference Range Interpretation Comments TSH, THIRD GENERATION (test code 4.890 UIU/ML = 2821) COMPREHENSIVE METABOLIC [id number] 00:00:00 Test Item Value Reference Range Interpretation Comments GLUCOSE (test code = 2217) 121 MG/DL BUN (test code = 2208) 40 MG/DL CREATININE (test code = 2214) 1.48 MG/DL eGFR AMER. (test code 45 ML/MIN/1.73 = 47072) eGFR NON- AMER. (test 39 ML/MIN/1.73 code = 21493) CALC BUN/CREAT (test code = 27 RATIO [...] code = 2219) 20 U/L COMPREHENSIVE METABOLIC [id number] 00:00:00 Test Item Value Reference Range Interpretation Comments GLUCOSE (test code = 2217) 121 MG/DL BUN (test code = 2208) 40 MG/DL CREATININE (test code = 2214) 1.48 MG/DL eGFR AMER. (test code 45 ML/MIN/1.73 = 07333) eGFR NON- AMER. (test 39 ML/MIN/1.73 code = 85139) CALC BUN/CREAT (test code = 27 RATIO [...] ALT (test code = 2219) 20 U/L [id number] 00:00:00 Test Item Value Reference Range Interpretation Comments TSH, THIRD GENERATION (test code 4.890 UIU/ML = 2821) [id number] 00:00:00 Test Item Value Reference Range Interpretation Comments TSH, THIRD GENERATION (test code 4.890 UIU/ML = 2821) COMPREHENSIVE METABOLIC [id number] 00:00:00 Test Item Value Reference Range Interpretation Comments GLUCOSE (test code = 2217) 121 MG/DL BUN (test code = 2208) 40 MG/DL CREATININE (test code = 2214) 1.48 MG/DL eGFR AMER. (test code 45 ML/MIN/1.73 = 38187) eGFR NON- AMER. (test 39 ML/MIN/1.73 code = 94194) CALC BUN/CREAT (test code = 27 RATIO [...] ALT (test code = 2219) 20 U/L [id number] 00:00:00 Test Item Value Reference Range Interpretation Comments TSH, THIRD GENERATION (test code 4.890 UIU/ML = 2821) [id number] 00:00:00 Test Item Value Reference Range Interpretation Comments TSH, THIRD GENERATION (test code 4.890 UIU/ML = 2821) [id number] 00:00:00 Test Item Value Reference Range Interpretation Comments TSH, THIRD GENERATION (test code 4.890 UIU/ML = 2821) COMPREHENSIVE METABOLIC [id number] 00:00:00 Test Item Value Reference Range Interpretation Comments GLUCOSE (test code = 2217) 121 MG/DL BUN (test code = 2208) 40 MG/DL CREATININE (test code = 2214) 1.48 MG/DL eGFR AMER. (test code 45 ML/MIN/1.73 = 89067) eGFR NON- AMER. (test 39 ML/MIN/1.73 code = 31350) CALC BUN/CREAT (test code = 27 RATIO [...] code = 2219) 20 U/L COMPREHENSIVE METABOLIC [id number] 00:00:00 Test Item Value Reference Range Interpretation Comments GLUCOSE (test code = 2217) 121 MG/DL BUN (test code = 2208) 40 MG/DL CREATININE (test code = 2214) 1.48 MG/DL eGFR AMER. (test code 45 ML/MIN/1.73 = 05560) eGFR NON- AMER. (test 39 ML/MIN/1.73 code = 64086) CALC BUN/CREAT (test code = 27 RATIO [...] (test code = 2219) 20 U/L LIPID [id number] 00:00:00 Test Item Value Reference Range Interpretation Comments CHOLESTEROL (test code = 2210) 261 MG/DL TRIGLYCERIDES (test code = 2232) 165 MG/DL HDL CHOLESTEROL (test code = 2220) 58 MG/DL CALC LDL CHOL (test code = 2237) 170 MG/DL RISK RATIO LDL/HDL (test code = 2.93 RATIO 2238) LIPID [id number] 00:00:00 Test Item Value Reference Range Interpretation Comments CHOLESTEROL (test code = 2210) 261 MG/DL TRIGLYCERIDES (test code = 2232) 165 MG/DL HDL CHOLESTEROL (test code = 2220) 58 MG/DL CALC LDL CHOL (test code = 2237) 170 MG/DL RISK RATIO LDL/HDL (test code = 2.93 RATIO 2238) CBC W/AUTO [id number] 00:00:00 Test Item Value Reference Range Interpretation [...] code = 1015) 378 K/UL CBC W/AUTO [id number] 00:00:00 Test Item Value Reference Range Interpretation [...] code = 1015) 378 K/UL CBC W/AUTO [id number] 00:00:00 Test Item Value Reference Range Interpretation [...] (test code = 1015) 378 K/UL HEMOGLOBIN [id number] 00:00:00 Test Item Value Reference Range Interpretation Comments HEMOGLOBIN A1c (test code = 97811) 6.4 % HEMOGLOBIN [id number] 00:00:00 Test Item Value Reference Range Interpretation Comments HEMOGLOBIN A1c (test code = 76864) 6.4 % HEMOGLOBIN [id number] 00:00:00 Test Item Value Reference Range Interpretation Comments HEMOGLOBIN A1c (test code = 13653) 6.4 % [id number] 00:00:00 Test Item Value Reference Range Interpretation Comments TSH (test code = 2821) 5.290 UIU/ML [id number] 00:00:00 Test Item Value Reference Range Interpretation Comments TSH (test code = 2821) 5.290 UIU/ML [id number] 00:00:00 Test Item Value Reference Range Interpretation Comments TSH (test code = 2821) 5.290 UIU/ML LIPID [id number] 00:00:00 Test Item Value Reference Range Interpretation Comments CHOLESTEROL (test code = 2210) 261 MG/DL TRIGLYCERIDES (test code = 2232) 165 MG/DL HDL CHOLESTEROL (test code = 2220) 58 MG/DL CALC LDL CHOL (test code = 2237) 170 MG/DL RISK RATIO LDL/HDL (test code = 2.93 RATIO 2238) LIPID [id number] 00:00:00 Test Item Value Reference Range Interpretation Comments CHOLESTEROL (test code = 2210) 261 MG/DL TRIGLYCERIDES (test code = 2232) 165 MG/DL HDL CHOLESTEROL (test code = 2220) 58 MG/DL CALC LDL CHOL (test code = 2237) 170 MG/DL RISK RATIO LDL/HDL (test code = 2.93 RATIO 2238) CBC W/AUTO [id number] 00:00:00 Test Item Value Reference Range Interpretation [...] code = 1015) 378 K/UL CBC W/AUTO [id number] 00:00:00 Test Item Value Reference Range Interpretation [...] code = 1015) 378 K/UL CBC W/AUTO [id number] 00:00:00 Test Item Value Reference Range Interpretation [...] (test code = 1015) 378 K/UL HEMOGLOBIN [id number] 00:00:00 Test Item Value Reference Range Interpretation Comments HEMOGLOBIN A1c (test code = 09122) 6.4 % HEMOGLOBIN [id number] 00:00:00 Test Item Value Reference Range Interpretation Comments HEMOGLOBIN A1c (test code = 00369) 6.4 % HEMOGLOBIN [id number] 00:00:00 Test Item Value Reference Range Interpretation Comments HEMOGLOBIN A1c (test code = 95995) 6.4 % [id number] 00:00:00 Test Item Value Reference Range Interpretation Comments TSH (test code = 2821) 5.290 UIU/ML [id number] 00:00:00 Test Item Value Reference Range Interpretation Comments TSH (test code = 2821) 5.290 UIU/ML [id number] 00:00:00 Test Item Value Reference Range Interpretation Comments TSH (test code = 2821) 5.290 UIU/ML LIPID [id number] 00:00:00 Test Item Value Reference Range Interpretation Comments CHOLESTEROL (test code = 2210) 261 MG/DL TRIGLYCERIDES (test code = 2232) 165 MG/DL HDL CHOLESTEROL (test code = 2220) 58 MG/DL CALC LDL CHOL (test code = 2237) 170 MG/DL RISK RATIO LDL/HDL (test code = 2.93 RATIO 2238) CBC W/AUTO [id number] 00:00:00 Test Item Value Reference Range Interpretation [...] code = 1015) 378 K/UL CBC W/AUTO [id number] 00:00:00 Test Item Value Reference Range Interpretation [...] (test code = 1015) 378 K/UL HEMOGLOBIN [id number] 00:00:00 Test Item Value Reference Range Interpretation Comments HEMOGLOBIN A1c (test code = 07798) 6.4 % HEMOGLOBIN [id number] 00:00:00 Test Item Value Reference Range Interpretation Comments HEMOGLOBIN A1c (test code = 82286) 6.4 % [id number] 00:00:00 Test Item Value Reference Range Interpretation Comments TSH (test code = 2821) 5.290 UIU/ML [id number] 00:00:00 Test Item Value Reference Range Interpretation Comments TSH (test code = 2821) 5.290 UIU/ML LIPID [id number] 00:00:00 Test Item Value Reference Range Interpretation Comments CHOLESTEROL (test code = 2210) 261 MG/DL TRIGLYCERIDES (test code = 2232) 165 MG/DL HDL CHOLESTEROL (test code = 2220) 58 MG/DL CALC LDL CHOL (test code = 2237) 170 MG/DL RISK RATIO LDL/HDL (test code = 2.93 RATIO 2238) LIPID [id number] 00:00:00 Test Item Value Reference Range Interpretation Comments CHOLESTEROL (test code = 2210) 261 MG/DL TRIGLYCERIDES (test code = 2232) 165 MG/DL HDL CHOLESTEROL (test code = 2220) 58 MG/DL CALC LDL CHOL (test code = 2237) 170 MG/DL RISK RATIO LDL/HDL (test code = 2.93 RATIO 2238) CBC W/AUTO [id number] 00:00:00 Test Item Value Reference Range Interpretation [...] code = 1015) 378 K/UL CBC W/AUTO [id number] 00:00:00 Test Item Value Reference Range Interpretation [...] code = 1015) 378 K/UL CBC W/AUTO [id number] 00:00:00 Test Item Value Reference Range Interpretation [...] (test code = 1015) 378 K/UL HEMOGLOBIN [id number] 00:00:00 Test Item Value Reference Range Interpretation Comments HEMOGLOBIN A1c (test code = 40043) 6.4 % HEMOGLOBIN [id number] 00:00:00 Test Item Value Reference Range Interpretation Comments HEMOGLOBIN A1c (test code = 06292) 6.4 % HEMOGLOBIN [id number] 00:00:00 Test Item Value Reference Range Interpretation Comments HEMOGLOBIN A1c (test code = 13676) 6.4 % [id number] 00:00:00 Test Item Value Reference Range Interpretation Comments TSH (test code = 2821) 5.290 UIU/ML [id number] 00:00:00 Test Item Value Reference Range Interpretation Comments TSH (test code = 2821) 5.290 UIU/ML [id number] 00:00:00 Test Item Value Reference Range Interpretation [...] code = 2821) 1.030 UIU/ML COMPREHENSIVE METABOLIC [id number] 00:00:00 Test Item Value Reference Range Interpretation Comments GLUCOSE (test code = 2217) 106 MG/DL BUN (test code = 2208) 23 MG/DL CREATININE (test code = 2214) 0.66 MG/DL eGFR AMER. (test code 114 ML/MIN/1.73 = 29077) eGFR NON- AMER. (test 99 ML/MIN/1.73 code = 33266) CALC BUN/CREAT (test code = 35 RATIO [...] code = 2219) 31 U/L COMPREHENSIVE METABOLIC [id number] 00:00:00 Test Item Value Reference Range Interpretation Comments GLUCOSE (test code = 2217) 106 MG/DL BUN (test code = 2208) 23 MG/DL CREATININE (test code = 2214) 0.66 MG/DL eGFR AMER. (test code 114 ML/MIN/1.73 = 65510) eGFR NON- AMER. (test 99 ML/MIN/1.73 code = 98306) CALC BUN/CREAT (test code = 35 RATIO [...] code = 2821) 0.335 UIU/ML COMPREHENSIVE METABOLIC [id number] 00:00:00 Test Item Value Reference Range Interpretation Comments GLUCOSE (test code = 2217) 106 MG/DL BUN (test code = 2208) 23 MG/DL CREATININE (test code = 2214) 0.66 MG/DL eGFR AMER. (test code 114 ML/MIN/1.73 = 51016) eGFR NON- AMER. (test 99 ML/MIN/1.73 code = 55485) CALC BUN/CREAT (test code = 35 RATIO [...] code = 2219) 31 U/L COMPREHENSIVE METABOLIC [id number] 00:00:00 Test Item Value Reference Range Interpretation Comments GLUCOSE (test code = 2217) 106 MG/DL BUN (test code = 2208) 23 MG/DL CREATININE (test code = 2214) 0.66 MG/DL eGFR AMER. (test code 114 ML/MIN/1.73 = 90784) eGFR NON- AMER. (test 99 ML/MIN/1.73 code = 23000) CALC BUN/CREAT (test code = 35 RATIO [...] code = 2821) 0.335 UIU/ML COMPREHENSIVE METABOLIC [id number] 00:00:00 Test Item Value Reference Range Interpretation Comments GLUCOSE (test code = 2217) 106 MG/DL BUN (test code = 2208) 23 MG/DL CREATININE (test code = 2214) 0.66 MG/DL eGFR AMER. (test code 114 ML/MIN/1.73 = 66204) eGFR NON- AMER. (test 99 ML/MIN/1.73 code = 44552) CALC BUN/CREAT (test code = 35 RATIO [...] code = 2821) 0.335 UIU/ML COMPREHENSIVE METABOLIC [id number] 00:00:00 Test Item Value Reference Range Interpretation Comments GLUCOSE (test code = 2217) 106 MG/DL BUN (test code = 2208) 23 MG/DL CREATININE (test code = 2214) 0.66 MG/DL eGFR AMER. (test code 114 ML/MIN/1.73 = 92844) eGFR NON- AMER. (test 99 ML/MIN/1.73 code = 81064) CALC BUN/CREAT (test code = 35 RATIO [...] code = 2219) 31 U/L COMPREHENSIVE METABOLIC [id number] 00:00:00 Test Item Value Reference Range Interpretation Comments GLUCOSE (test code = 2217) 106 MG/DL BUN (test code = 2208) 23 MG/DL CREATININE (test code = 2214) 0.66 MG/DL eGFR AMER. (test code 114 ML/MIN/1.73 = 31743) eGFR NON- AMER. (test 99 ML/MIN/1.73 code = 07315) CALC BUN/CREAT (test code = 35 RATIO [...] code = 2821) 0.335 UIU/ML COMPREHENSIVE METABOLIC [id number] 00:00:00 Test Item Value Reference Range Interpretation Comments GLUCOSE (test code = 2217) 103 MG/DL BUN (test code = 2208) 15 MG/DL CREATININE (test code = 2214) 0.77 MG/DL eGFR AMER. (test code 101 ML/MIN/1.73 = 77908) eGFR NON- AMER. (test 87 ML/MIN/1.73 code = 76908) CALC BUN/CREAT (test code = 19 RATIO [...] code = 2219) 24 U/L COMPREHENSIVE METABOLIC [id number] 00:00:00 Test Item Value Reference Range Interpretation Comments GLUCOSE (test code = 2217) 103 MG/DL BUN (test code = 2208) 15 MG/DL CREATININE (test code = 2214) 0.77 MG/DL eGFR AMER. (test code 101 ML/MIN/1.73 = 48143) eGFR NON- AMER. (test 87 ML/MIN/1.73 code = 81219) CALC BUN/CREAT (test code = 19 RATIO [...] code = 2821) 0.424 UIU/ML COMPREHENSIVE METABOLIC [id number] 00:00:00 Test Item Value Reference Range Interpretation Comments GLUCOSE (test code = 2217) 103 MG/DL BUN (test code = 2208) 15 MG/DL CREATININE (test code = 2214) 0.77 MG/DL eGFR AMER. (test code 101 ML/MIN/1.73 = 71710) eGFR NON- AMER. (test 87 ML/MIN/1.73 code = 24540) CALC BUN/CREAT (test code = 19 RATIO [...] code = 2219) 24 U/L COMPREHENSIVE METABOLIC [id number] 00:00:00 Test Item Value Reference Range Interpretation Comments GLUCOSE (test code = 2217) 103 MG/DL BUN (test code = 2208) 15 MG/DL CREATININE (test code = 2214) 0.77 MG/DL eGFR AMER. (test code 101 ML/MIN/1.73 = 09047) eGFR NON- AMER. (test 87 ML/MIN/1.73 code = 43603) CALC BUN/CREAT (test code = 19 RATIO [...] code = 2821) 0.424 UIU/ML COMPREHENSIVE METABOLIC [id number] 00:00:00 Test Item Value Reference Range Interpretation Comments GLUCOSE (test code = 2217) 103 MG/DL BUN (test code = 2208) 15 MG/DL CREATININE (test code = 2214) 0.77 MG/DL eGFR AMER. (test code 101 ML/MIN/1.73 = 58702) eGFR NON- AMER. (test 87 ML/MIN/1.73 code = 68254) CALC BUN/CREAT (test code = 19 RATIO [...] code = 2821) 0.424 UIU/ML COMPREHENSIVE METABOLIC [id number] 00:00:00 Test Item Value Reference Range Interpretation Comments GLUCOSE (test code = 2217) 103 MG/DL BUN (test code = 2208) 15 MG/DL CREATININE (test code = 2214) 0.77 MG/DL eGFR AMER. (test code 101 ML/MIN/1.73 = 37229) eGFR NON- AMER. (test 87 ML/MIN/1.73 code = 90959) CALC BUN/CREAT (test code = 19 RATIO [...] code = 2219) 24 U/L COMPREHENSIVE METABOLIC [id number] 00:00:00 Test Item Value Reference Range Interpretation Comments GLUCOSE (test code = 2217) 103 MG/DL BUN (test code = 2208) 15 MG/DL CREATININE (test code = 2214) 0.77 MG/DL eGFR AMER. (test code 101 ML/MIN/1.73 = 31471) eGFR NON- AMER. (test 87 ML/MIN/1.73 code = 90649) CALC BUN/CREAT (test code = 19 RATIO [...] (test code = 2821) 0.424 UIU/ML CULTURE, [id number] 00:00:00 Test Item Value Reference Range Interpretation Comments CULTURE, URINE (test SPECIMEN NUMBER: code = 11432) [id number] CULTURE, [id number] 00:00:00 Test Item Value Reference Range Interpretation Comments CULTURE, URINE (test SPECIMEN NUMBER: code = 67210) [id number] CULTURE, [id number] 00:00:00 Test Item Value Reference Range Interpretation Comments CULTURE, URINE (test SPECIMEN NUMBER: code = 36857) [id number] CULTURE, [id number] 00:00:00 Test Item Value Reference Range Interpretation Comments CULTURE, URINE (test SPECIMEN NUMBER: code = 85600) [id number] CULTURE, [id number] 00:00:00 Test Item Value Reference Range Interpretation Comments CULTURE, URINE (test SPECIMEN NUMBER: code = 87083) [id number] CULTURE, [id number] 00:00:00 Test Item Value Reference Range Interpretation Comments CULTURE, URINE (test SPECIMEN NUMBER: code = 83072) [id number] CULTURE, [id number] 00:00:00 Test Item Value Reference Range Interpretation Comments CULTURE, URINE (test SPECIMEN NUMBER: code = 11349) [id number] CULTURE, [id number] 00:00:00 Test Item Value Reference Range Interpretation Comments CULTURE, URINE (test SPECIMEN NUMBER: code = 03194) [id number] CULTURE, [id number] 00:00:00 Test Item Value Reference Range Interpretation Comments CULTURE, URINE (test SPECIMEN NUMBER: code = 12415) [id number] CULTURE, [id number] 00:00:00 Test Item Value Reference Range Interpretation Comments CULTURE, URINE (test SPECIMEN NUMBER: code = 80871) [id number] CULTURE, [id number] 00:00:00 Test Item Value Reference Range Interpretation Comments CULTURE, URINE (test SPECIMEN NUMBER: code = 08976) [id number] CULTURE, [id number] 00:00:00 Test Item Value Reference Range Interpretation Comments CULTURE, URINE (test SPECIMEN NUMBER: code = 26610) [id number] CULTURE, [id number] 00:00:00 Test Item Value Reference Range Interpretation Comments CULTURE, URINE (test SPECIMEN NUMBER: code = 78200) [id number] CULTURE, [id number] 00:00:00 Test Item Value Reference Range Interpretation Comments CULTURE, URINE (test SPECIMEN NUMBER: code = 23680) [id number]
[2022-02-24] MEDS ORDERED: ONDANSETRON 4 MG (ODT) TAB ONE (10:36)
--- NOTE | 2022-02-24 12:19 | EDPHYS ---
Physician Documentation [facility] Name: Jaimie Amanda Age: 61 yrs Sex: Female : 1960 Arrival Date: 02/24/2022 Time: 10:16 Bed IW1 Private MD: ED Physician Wilfrid Singh HPI: 02/24 10:39 This 61 yrs old Female presents to ER via Ambulatory with complaints of Vomiting. snw 10:39 The patient presents to the emergency department with nausea, vomiting. Onset: The snw symptoms/episode began/occurred acutely. Possible causes: ETOH abuse, chronic abd pain. The symptoms are alleviated by nothing. Associated signs and symptoms: Pertinent positives: vomiting. Severity of symptoms: At their worst the symptoms were mild moderate. The patient has experienced similar episodes in the past, chronically. The patient has been recently seen by a physician: The patient has been recently seen at the [facility] Emergency Department, this week, for similar complaints. Historical: - PMHx: 10:35 Alcoholism; Anxiety; Chronic Abdominal Pain; Hypertensive disorder; Hypothyroidism; low jh5 NA; NIDDM; - PSHx: 10:35 Thyroidectomy; jh5 - Immunization history:: Adult Immunizations up to date. - Social history:: Smoking status: Patient reports the use of cigarette tobacco products, denies chronic smoking, but will smoke occasionally. ROS: 10:38 Constitutional: Negative for fever, chills, and weight loss, Eyes: Negative for injury, snw pain, redness, and discharge, ENT: Negative for injury, pain, and discharge, Neck: Negative for injury, pain, and swelling, Cardiovascular: Negative for chest pain, palpitations, and edema, Respiratory: Negative for shortness of breath, cough, wheezing, and pleuritic chest pain, Back: Negative for injury and pain, : Negative for injury, bleeding, discharge, and swelling, MS/Extremity: Negative for injury and deformity, Skin: Negative for injury, rash, and discoloration, Neuro: Negative for headache, weakness, numbness, tingling, and seizure, Psych: Negative for depression, anxiety, suicide ideation, homicidal ideation, and hallucinations. 10:38 Abdomen/GI: Positive for abdominal pain, nausea and vomiting. Exam: 10:37 Constitutional: This is a well developed, well nourished patient who is awake, alert, snw and in no acute distress. Head/Face: Normocephalic, atraumatic. Eyes: Pupils equal round and reactive to light, extra-ocular motions intact. Lids and lashes normal. Conjunctiva and sclera are non-icteric and not injected. Cornea within normal limits. Periorbital areas with no swelling, redness, or edema. ENT: Nares patent. No nasal discharge, no septal abnormalities noted. Tympanic membranes are normal and external auditory canals are clear. Oropharynx with no redness, swelling, or masses, exudates, or evidence of obstruction, uvula midline. Mucous membranes moist. Neck: Trachea midline, no thyromegaly or masses palpated, and no cervical lymphadenopathy. Supple, full range of motion without nuchal rigidity, or vertebral point tenderness. No Meningismus. Chest/axilla: Normal chest wall appearance and motion. Nontender with no deformity. No lesions are appreciated. Cardiovascular: Regular rate and rhythm with a normal S1 and S2. No gallops, murmurs, or rubs. Normal PMI, no JVD. No pulse deficits. Respiratory: Lungs have equal breath sounds bilaterally, clear to auscultation and percussion. No rales, rhonchi or wheezes noted. No increased work of breathing, no retractions or nasal flaring. Back: No spinal tenderness. No costovertebral tenderness. Full range of motion. Skin: Warm, dry with normal turgor. Normal color with no rashes, no lesions, and no evidence of cellulitis. MS/ Extremity: Pulses equal, no cyanosis. Neurovascular intact. Full, normal range of motion. Neuro: Awake and alert, GCS 15, oriented to person, place, time, and situation. Cranial nerves II-XII grossly intact. Motor strength 5/5 in all extremities. Sensory grossly intact. Cerebellar exam normal. Normal gait. Psych: Awake, alert, with orientation to person, place and time. Behavior, mood, and affect are within normal limits. 10:37 Abdomen/GI: Inspection: abdomen appears normal, Bowel sounds: normal, Palpation: mild abdominal tenderness, in the abdomen. Vital Signs: 10:32 BP 160 / 85; Pulse 94; Resp 16; Temp 97.4; Pulse Ox 96% on R/A; Weight 70.31 kg; Height jh5 5 ft. 5 in. (165.10 cm); Pain 4/10; 12:16 BP 152 / 76; Pulse 88; Resp 18; Temp 97.5; Pulse Ox 97% ; [facility] 10:32 Body Mass Index 25.79 (70.31 kg, 165.10 cm) [facility] MDM: 10:23 Patient medically screened. snw 12:19 Data reviewed: vital signs, nurses notes. Data interpreted: Pulse oximetry: is 97 %. snw Interpretation: normal. Counseling: I had a detailed discussion with the patient and/or guardian regarding: the historical points, exam findings, and any diagnostic results supporting the discharge/admit diagnosis, the need for outpatient follow up, to return to the emergency department if symptoms worsen or persist or if there are any questions or concerns that arise at home. Special discussion: Based on the history and exam findings, there is no indication for further emergent testing or inpatient evaluation. I discussed with the patient/guardian the need to see the umbrella tipper for further evaluation of the symptoms. I discussed with the patient/guardian the need to see the primary care provider for further evaluation of the symptoms. 02/24 11:24 Order name: Recheck VS; Complete Time: 12:18 snw Administered Medications: 10:43 Drug: Zofran (Ondansetron) 8 mg Route: PO; [facility] Disposition: 13:43 Co-signature as Attending Physician, Wilfrid Singh DO I was immediately available on-site ms3 in the Emergency Department for consultation in the care of the patient. Disposition Summary: 02/24/22 12:19 Discharge Ordered Location: Home snw Condition: Stable snw Diagnosis - Abdominal pain, Generalized snw - Vomiting, unspecified snw Followup: snw - With: Emergency Department - When: As needed - Reason: Worsening of condition Followup: snw - With: Private Physician - When: 2 - 3 days - Reason: Recheck today's complaints, Continuance of care, Re-evaluation by your physician Discharge Instructions: - Discharge Summary Sheet snw - Abdominal Pain, Adult snw - Gas and Gas Pains, Pediatric snw - [place] Diet snw Forms: - Medication Reconciliation Form snw - Thank You Letter snw - Antibiotic Education snw - Prescription Opioid Use snw Signatures: Fawn Torres FNP-C FNP-CsnWilfrid Abreu DO DO ms3 Sandi Hernandez, RN RN jh5
--- NOTE | 2022-02-24 12:19 | ER ---
Nurse's Notes [facility] Name: Jaimie Amanda Age: 61 yrs Sex: Female : 1960 Arrival Date: 02/24/2022 Time: 10:16 Bed IW1 Private MD: Diagnosis: Abdominal pain, Generalized;Vomiting, unspecified Presentation: 02/24 10:32 Chief complaint: Patient states: I been throwing up all night; i dont know what jh5 happened; i got bad pains in my stomach. I think i had fever yesterday. Coronavirus screen: Vaccine status: Patient reports receiving the 2nd dose of the covid vaccine. Client denies travel out of the [place] in the last 14 days. Ebola Screen: Patient negative for fever greater than or equal to 101.5 degrees Fahrenheit, and additional compatible Ebola Virus Disease symptoms Patient denies exposure to infectious person. Patient denies travel to an Ebola-affected area in the 21 days before illness onset. Initial Sepsis Screen: Does the patient meet any 2 criteria? Yes Does the patient have a suspected source of infection? No. Patient's initial sepsis screen is negative. Risk Assessment: Do you want to hurt yourself or someone else? Patient reports no desire to harm self or others. Onset of symptoms was February 23, 2022. 10:32 Method Of Arrival: Ambulatory [facility] 10:32 Acuity: ZHEN 4 jh5 Triage Assessment: 10:35 General: Appears in no apparent distress. uncomfortable, Behavior is calm, cooperative, jh5 appropriate for age. Pain: Complains of pain in abdomen. GI: Reports nausea, vomiting. Historical: - PMHx: 10:35 Alcoholism; Anxiety; Chronic Abdominal Pain; Hypertensive disorder; Hypothyroidism; low jh5 NA; NIDDM; - PSHx: 10:35 Thyroidectomy; jh5 - Immunization history:: Adult Immunizations up to date. - Social history:: Smoking status: Patient reports the use of cigarette tobacco products, denies chronic smoking, but will smoke occasionally. Assessment: 12:17 Reassessment: Pt states; "I feel better, I am just going to go". GI: jh5 Vital Signs: 10:32 BP 160 / 85; Pulse 94; Resp 16; Temp 97.4; Pulse Ox 96% on R/A; Weight 70.31 kg; Height [facility] 5 ft. 5 in. (165.10 cm); Pain 4/10; 12:16 BP 152 / 76; Pulse 88; Resp 18; Temp 97.5; Pulse Ox 97% ; jh5 10:32 Body Mass Index 25.79 (70.31 kg, 165.10 cm) [facility] ED Course: 10:16 Patient arrived in ED. as 10:21 Fawn Torres FNP-C is [facility]. snw 10:21 Wilfrid Singh DO is Attending Physician. snw 10:35 Triage completed. 5 10:35 Arm band placed on right wrist. 5 Administered Medications: 10:43 Drug: Zofran (Ondansetron) 8 mg Route: PO; [facility] Outcome: 12:19 Discharge ordered by . snw 12:21 Patient left the ED. [facility] Signatures: Fawn Torres FNP-C FNP-Javanw Ada Marley Jessica, RN RN [facility]
[2022-02-24 12:28] VITALS: BP 152/76; TEMP 97.5; O2SAT 97
== END 2022-02-24 12:21 | disposition home or self-care (01) ==
LOC: ER 10:14
DX: R11.10 Vomiting, unspecified (principal); R10.84 Generalized abdominal pain
CPT/HCPCS: 99283; Q0162

== ENCOUNTER 2022-02-25 09:04 | Emergency (ER) | payer OTHER ==
[2022-02-25] MEDS ORDERED: ONDANSETRON 4 MG (ODT) TAB ONE (09:17)
--- OUTSIDE RECORDS SUMMARY | 2022-02-25 09:27 | XMS REPORT | Continuity of Care Document ---
:1960 Author Organization [facility] t Address [address] [place] [address] Care Team Providers Name Role Phone Jacinda George Primary Care Physician [phone] MATT SIMPSON Attending Clinician Unavailable MATT SIMPSON Attending Clinician Unavailable Doctor Unassigned, [place] Attending Clinician Unavailable WALLY KRISHNAMURTHY Attending Clinician Unavailable Natacha Brewster Attending Clinician Payers Payer Name Policy Type Policy Number Effective Date Expiration Date Sarina castelan [facility] [id number] 2017 00:00:00 PLUS Problems This patient has [...] s TRANSDER 5-21 ity of MAL 00:00: [place] 00 [facility] ACETAMIN DRUG Active Other-Cmnt Univ ers OPHEN INGREDI 07-27 ity of 00:00: [place] [address] Medical [facility] Hmg-[employer] Propensi Inactiv Reductas ty [...] AT BEDTIME 00 Dose 2021-1 No Unknown 04 00:00: 00 TAKE 2021-03 No TABLET BY [...] 1-1 No Unknown 2-08 00:00: 00 losartan 2021-1 [...] 00:00: orothiazide 00 25 mg tablet ondansetron 2019-03 No 1mg 4 mg 2-04 disintegrat 00:00: [...] 5 mcg 2-04 tablet 00:00: 00 ondansetron 2019-03 No 1mg 4 mg 2-04 disintegrat 00:00: [...] 5 mcg 0-08 tablet 00:00: 00 levothyroxi 2019-03 No 1mcg ne 125 mcg 0-08 tablet 00:00: 00 liothyronin 2019-03 No 1mcg e 5 mcg 0-08 tablet [...] Flagyl 500 2018-1 No 1mg mg tablet -13 00:00: 00 Premarin 2019-1 No 1mg 0.625 [...] levothyroxi 2018-0 No 1mcg ne 150 mcg -17 tablet 00:00: 00 amlodipine 2018-0 No 1mg 5 mg tablet 09-22 00:00: 00 ondansetron 2018-0 No 1mg HCl 4 mg - tablet 00:00: 00 levothyroxi 2018-0 No 1mcg ne 150 mcg 09-22 tablet 00:00: 00 amlodipine 2018-0 No 1mg [...] 30 mg 1-15 tablet 00:00: 00 levothyroxi 2016-1 No 1mcg ne 150 mcg 0-24 tablet 00:00: 00 levothyroxi 2016-1 No 1mcg ne 150 mcg 0-24 tablet 00:00: 00 levothyroxi 2016-1 No 1mcg ne 150 mcg 0-24 tablet 00:00: 00 levothyroxi 2016-1 No 1mcg ne 150 mcg 0-24 tablet 00:00: 00 risperidone 2017-0 No 1mg 1 mg tablet 7 00:00: 00 Trileptal 2016-0 No 1mg 600 [...] Goal Plan of Care Note [code = 53453-4] Goal Plan of Care Note [code = 60163-5] Goal Plan of Care Note [code = 13440-1] Goal Plan of Care Note [code = 68603-0] Goal Plan of Care Note [code = 50891-9] Goal Plan of Care Note [code = 75560-5] Goal Plan of Care Note [code = 86075-1] Goal Plan of Care Note [code = 68881-1] Goal Plan of Care Note [code = 94666-3] Goal Plan of Care Note [code = 19307-0] Goal Plan of Care Note [code = 16659-4] Goal Plan of Care Note [code = 68474-2] Goal Plan of Care Note [code = 01872-3] Goal Plan of Care Note [code = 45676-9] Goal Plan of Care Note [code = 83121-4] Goal Plan of Care Note [code = 14224-0] Goal Plan of Care Note [code = 68563-6] Goal Plan of Care Note [code = 13649-7] Goal Plan of Care Note [code = 92890-7] Goal Plan of Care Note [code = 79073-4] Goal Plan of Care Note [code = 66845-3] Goal Plan of Care Note [code = 24167-8] Goal Plan of Care Note [code = 88756-7] Goal Plan of Care Note [code = 48197-7] Goal Plan of Care Note [code = 00956-4] Goal Plan of Care Note [code = 15707-9] Goal Plan of Care Note [code = 12305-2] Goal Plan of Care Note [code = 99118-9] Goal Plan of Care Note [code = 46601-3] Goal Plan of Care Note [code = 67408-6] Goal Plan of Care Note [code = 98202-8] Goal Plan of Care Note [code = 22297-0] Goal Plan of Care Note [code = 46701-1] Goal Plan of Care Note [code = 35409-7] Goal Plan of Care Note [code = 22512-1] Goal Plan of Care Note [code = 85257-0] Goal Plan of Care Note [code = 13206-2] Goal Plan of Care Note [code = 53002-4] Goal Plan of Care Note [code = 50045-4] Goal Plan of Care Note [code = 69076-5] Goal Plan of Care Note [code = 92831-2] Goal Plan of Care Note [code = 69071-2] Goal Plan of Care Note [code = 36273-2] Goal Plan of Care Note [code = 89228-0] Goal Plan of Care Note [code = 97011-9] Goal Plan of Care Note [code = 09621-3] Goal Plan of Care Note [code = 03251-3] Goal Plan of Care Note [code = 07681-3] Goal Plan of Care Note [code = 00903-1] Goal Plan of Care Note [code = 73671-2] Goal Plan of Care Note [code = 89773-2] Goal Plan of Care Note [code = 63212-9] Goal Plan of Care Note [code = 87549-8] Goal Plan of Care Note [code = 86529-2] Goal Plan of Care Note [code = 31826-1] Goal Plan of Care Note [code = 90604-7] Goal Plan of Care Note [code = 56567-3] Goal Plan of Care Note [code = 49952-0] Goal Plan of Care Note [code = 22392-9] Goal Plan of Care Note [code = 32893-9] Goal Plan of Care Note [code = 13851-1] Goal Plan of Care Note [code = 90525-6] Goal Plan of Care Note [code = 47679-9] Goal Plan of Care Note [code = 40906-4] Goal Plan of Care Note [code = 19327-0] Goal Plan of Care Note [code = 70757-5] Goal Plan of Care Note [code = 54028-5] Goal Plan of Care Note [code = 53883-1] Goal Plan of Care Note [code = 28982-9] Goal Plan of Care Note [code = 26632-2] Goal Plan of Care Note [code = 03030-0] Goal Plan of Care Note [code = 19533-6] Goal Plan of Care Note [code = 31651-9] Goal Plan of Care Note [code = 43673-5] Goal Plan of Care Note [code = 98924-8] Goal Plan of Care Note [code = 64826-6] Goal Plan of Care Note [code = 75009-1] Goal Plan of Care Note [code = 17761-5] Goal Plan of Care Note [code = 34584-6] Goal Plan of Care Note [code = 43082-9] Goal Plan of Care Note [code = 55063-3] Goal Plan of Care Note [code = 73500-5] Goal Plan of Care Note [code = 46071-5] Goal Plan of Care Note [code = 20084-5] Goal Plan of Care Note [code = 51602-0] Goal Plan of Care Note [code = 37806-1] Goal Plan of Care Note [code = 55712-1] Goal Plan of Care Note [code = 65328-3] Goal Plan of Care Note [code = 97682-8] Goal Plan of Care Note [code = 87098-0] Goal Plan of Care Note [code = 52718-9] Goal Plan of Care Note [code = 67289-1] Goal Plan of Care Note [code = 36739-7] Goal Plan of Care Note [code = 49685-0] Goal Plan of Care Note [code = 49616-6] Goal Plan of Care Note [code = 60518-2] Goal Plan of Care Note [code = 20485-7] Goal Plan of Care Note [code = 83206-5] Goal Plan of Care Note [code = 18348-6] Goal Plan of Care Note [code = 66906-6] Goal Plan of Care Note [code = 18019-0] Goal Plan of Care Note [code = 13746-1] Goal Plan of Care Note [code = 07277-7] Goal Plan of Care Note [code = 30191-9] Goal Plan of Care Note [code = 34717-1] Goal Plan of Care Note [code = 15425-3] Goal Plan of Care Note [code = 29233-2] Goal Plan of Care Note [code = 19667-9] Goal Plan of Care Note [code = 54930-3] Goal Plan of Care Note [code = 82406-5] Goal Plan of Care Note [code = 73854-4] Goal Plan of Care Note [code = 71166-4] Goal Plan of Care Note [code = 33925-7] Goal Plan of Care Note [code = 69000-4] Goal Plan of Care Note [code = 03011-9] Goal Plan of Care Note [code = 83023-5] Goal Plan of Care Note [code = 27286-8] Goal Plan of Care Note [code = 35892-7] Goal Plan of Care Note [code = 46999-9] Goal Plan of Care Note [code = 53949-4] Goal Plan of Care Note [code = 85855-0] Goal Plan of Care Note [code = 30484-7] Goal Plan of Care Note [code = 34737-8] Goal Plan of Care Note [code = 72737-7] Goal Plan of Care Note [code = 26199-1] Goal Plan of Care Note [code = 34761-1] Goal Plan of Care Note [code = 01245-7] Goal Plan of Care Note [code = 24488-5] Goal Plan of Care Note [code = 22914-2] Goal Plan of Care Note [code = 67551-6] Goal Plan of Care Note [code = 13539-1] Goal Plan of Care Note [code = 88512-1] Goal Plan of Care Note [code = 70248-1] Goal Plan of Care Note [code = 49161-3] Goal Plan of Care Note [code = 83201-5] Goal Plan of Care Note [code = 55844-5] Goal Plan of Care Note [code = 66492-3] Goal Plan of Care Note [code = 00523-4] Goal Plan of Care Note [code = 33279-7] Goal Plan of Care Note [code = 10960-7] Goal Plan of Care Note [code = 68404-2] Goal Plan of Care Note [code = 44881-4] Goal Plan of Care Note [code = 34615-6] Goal Plan of Care Note [code = 94168-3] Goal Plan of Care Note [code = 39819-8] Goal Plan of Care Note [code = 36342-9] Goal Plan of Care Note [code = 78021-2] Goal Plan of Care Note [code = 72121-6] Goal Plan of Care Note [code = 32690-7] Goal Plan of Care Note [code = 29633-6] Goal Plan of Care Note [code = 46587-6] Goal Plan of Care Note [code = 58534-3] Goal Plan of Care Note [code = 47127-1] Goal Plan of Care Note [code = 54082-5] Goal Plan of Care Note [code = 60184-7] Goal Plan of Care Note [code = 26992-5] Goal Plan of Care Note [code = 75081-5] Goal Plan of Care Note [code = 70085-3] Goal Plan of Care Note [code = 17929-9] Goal Plan of Care Note [code = 81621-3] Goal Plan of Care Note [code = 91871-3] Goal Plan of Care Note [code = 82988-8] Goal Plan of Care Note [code = 39286-8] Goal Plan of Care Note [code = 75676-1] Goal Plan of Care Note [code = 03384-0] Goal Plan of Care Note [code = 39213-3] Goal Plan of Care Note [code = 93585-9] Goal Plan of Care Note [code = 75179-2] Goal Plan of Care Note [code = 92505-1] Goal Plan of Care Note [code = 03036-7] Goal Plan of Care Note [code = 29971-0] Goal Plan of Care Note [code = 19336-3] Goal Plan of Care Note [code = 89192-8] Goal Plan of Care Note [code = 29791-7] Goal Plan of Care Note [code = 38375-9] Goal Plan of Care Note [code = 01970-8] Goal Plan of Care Note [code = 04884-8] Goal Plan of Care Note [code = 79007-7] Goal Plan of Care Note [code = 05825-1] Goal Plan of Care Note [code = 11481-7] Goal Plan of Care Note [code = 05839-0] Goal Plan of Care Note [code = 08454-4] Goal Plan of Care Note [code = 16894-6] Goal Plan of Care Note [code = 95251-5] Goal Plan of Care Note [code = 75357-5] Goal Plan of Care Note [code = 64651-0] Goal Plan of Care Note [code = 82282-8] Goal Plan of Care Note [code = 56999-5] Goal Plan of Care Note [code = 46352-3] Goal Plan of Care Note [code = 41427-8] Goal Plan of Care Note [code = 49165-5] Goal Plan of Care Note [code = 91427-7] Goal Plan of Care Note [code = 78859-9] Goal Plan of Care Note [code = 06755-7] Goal Plan of Care Note [code = 94672-1] Goal Plan of Care Note [code = 02307-0] Goal Plan of Care Note [code = 85140-3] Goal Plan of Care Note [code = 22176-4] Goal Plan of Care Note [code = 39199-2] Goal Plan of Care Note [code = 97544-1] Goal Plan of Care Note [code = 63736-8] Goal Plan of Care Note [code = 94477-5] Goal Plan of Care Note [code = 21812-7] Goal Plan of Care Note [code = 35732-0] Goal Plan of Care Note [code = 24492-9] Goal Plan of Care Note [code = 27018-1] Goal Plan of Care Note [code = 37122-3] Goal Plan of Care Note [code = 80487-4] Encounters Start End Encounter Admission Attending Care Care Encounter Source Date/Time Date/Time Type Type Clinicians Facility Department ID 2021-06-01 Outpatient [facility] [id number] [place] 01:36:29 [id number] [facility] 2022-02-11 2022-02-11 Outpatient [facility] [id number] 022 Cristian 09:04:48 09:04:48 1206 F Jerman 2022-02-10 2022-02-10 Outpatient SFA [facility] [id number] 022 Cristian 09:29:34 09:29:34 1205 F Jerman 2022-02-10 2022-02-10 Outpatient [id number]- [id number] 6c35u5-3 00:00:00 00:00:00 Visit 4089-4cab 089-4cab-9 -9so0-o1y bf5-u5f009 337tgpo49 bafa93 2022-01-10 2022-01-10 Outpatient SFA SFA 72419-2 022 Cristian 09:16:14 09:16:14 1104 F Jerman 2022-01-10 2022-01-10 Outpatient n8rzhgd8- [id number] f2 accaa6-a 00:00:00 00:00:00 Visit aca9-4c83 ca9-4c83-a -e5gt-yv1 7eb-bc13f3 0i9f461i0 f032f9 2021-12-19 2021-12-19 Outpatient SFA SFA 11583-1 022 Cristian 16:11:31 16:11:31 1013 F Jerman 2021-12-19 2021-12-19 Outpatient [id number] 466cae-a 00:00:00 00:00:00 Visit u813-805k 770-441f-a -adae-62b amelia-62bace vvhwa90is fd81af 2021-09-17 2021-09-17 Outpatient ahf9esgx- [id number] aa o6dvxf-3 00:00:00 00:00:00 Visit 935a-4f50 35a-4f50-b -c73a-k6w 77d-c2ba85 m290435f1 1264a6 2020-08-03 2020-08-03 Outpatient MATT VÁSQUEZ [facility] [id number] [facility] 10:00:00 10:00:00 MATT SIMPSON pat [facility] 2020-07-25 2020-07-25 [facility] Doctor FISH [id number] 00:00:00 00:00:00 Only Unassigned, BK 350.1.13.10 [facility] 4.2.7.2.686 [id number] 2019-09-26 2019-09-26 Outpatient R KELTONANEL, [facility] [id number] Univers 16:00:00 16:00:00 WALLY yeager [facility] 2018-10-21 2018-10-21 Telephone Gramm, [facility] [id number] 00:00:00 00:00:00 Natacha Nguyen 350.1.13.10 Ade 4.2.7.2.686 [place] [id number] [facility] Building Results Test Description Test Time Test Comments Results Result Comments Source TSH, THIRD GENERATION 2021-06-27 05:15:49 Test Item Value Reference Range Interpretation Comme nts TSH, THIRD GENERATION (test code = 2821) 2.080 UIU/ML 0.400-4.100 HEMOGLOBIN [id number] 03:46:00 Test Item Value Reference Range Interpretation Comments HEMOGLOBIN A1c (test 6.6 % 4.2-5.6 H AMERIC AN DIABETES code = 97222) ASSOCIATION IDELINES FOR HGB A1C: PREDIABETES/INC REASED [...] INDICATED, ALL TESTING PER FORMED ATCLINICAL PATH [facility], [place]. [address] [place] [address] 7 0947 LABORATORY DIRE CTOR: DIANA RUSS M.D. CLIA NUMBER [id number] [place] [id number] LIPID [id number] 02:59:52 Test Item Value Reference Range Interpretation [...] MOREINFORMATION , SEE CLIENT ANNOUNCE MENT AT [email or web address] RISK RATIO LDL/HDL 4.02 RATIO <3.22 H (test code = 2238) [id number] 00:00:00 Test Item Value Reference Range Interpretation Comments TSH, THIRD GENERATION (test code 2.080 UIU/ML = 2821) [id number] 00:00:00 Test Item Value Reference Range Interpretation Comments TSH, THIRD GENERATION (test code 2.080 UIU/ML = 2821) [id number] 00:00:00 Test Item Value Reference Range Interpretation Comments TSH, THIRD GENERATION (test code 2.080 UIU/ML = 2821) LIPID [id number] 00:00:00 Test Item Value Reference Range Interpretation Comments CHOLESTEROL (test code = 2210) 292 MG/DL TRIGLYCERIDES (test code = 2232) 184 MG/DL HDL CHOLESTEROL (test code = 2220) 51 MG/DL CALC LDL CHOL (test code = 2237) 205 MG/DL RISK RATIO LDL/HDL (test code = 4.02 RATIO 2238) LIPID [id number] 00:00:00 Test Item Value Reference Range Interpretation Comments CHOLESTEROL (test code = 2210) 292 MG/DL TRIGLYCERIDES (test code = 2232) 184 MG/DL HDL CHOLESTEROL (test code = 2220) 51 MG/DL CALC LDL CHOL (test code = 2237) 205 MG/DL RISK RATIO LDL/HDL (test code = 4.02 RATIO 2238) HEMOGLOBIN [id number] 00:00:00 Test Item Value Reference Range Interpretation Comments HEMOGLOBIN A1c (test code = 25781) 6.6 % HEMOGLOBIN [id number] 00:00:00 Test Item Value Reference Range Interpretation Comments HEMOGLOBIN A1c (test code = 39043) 6.6 % HEMOGLOBIN [id number] 00:00:00 Test Item Value Reference Range Interpretation Comments HEMOGLOBIN A1c (test code = 65835) 6.6 % [id number] 00:00:00 Test Item Value Reference Range Interpretation Comments TSH, THIRD GENERATION (test code 2.080 UIU/ML = 2821) [id number] 00:00:00 Test Item Value Reference Range Interpretation Comments TSH, THIRD GENERATION (test code 2.080 UIU/ML = 2821) [id number] 00:00:00 Test Item Value Reference Range Interpretation Comments TSH, THIRD GENERATION (test code 2.080 UIU/ML = 2821) LIPID [id number] 00:00:00 Test Item Value Reference Range Interpretation Comments CHOLESTEROL (test code = 2210) 292 MG/DL TRIGLYCERIDES (test code = 2232) 184 MG/DL HDL CHOLESTEROL (test code = 2220) 51 MG/DL CALC LDL CHOL (test code = 2237) 205 MG/DL RISK RATIO LDL/HDL (test code = 4.02 RATIO 2238) LIPID [id number] 00:00:00 Test Item Value Reference Range Interpretation Comments CHOLESTEROL (test code = 2210) 292 MG/DL TRIGLYCERIDES (test code = 2232) 184 MG/DL HDL CHOLESTEROL (test code = 2220) 51 MG/DL CALC LDL CHOL (test code = 2237) 205 MG/DL RISK RATIO LDL/HDL (test code = 4.02 RATIO 2238) HEMOGLOBIN [id number] 00:00:00 Test Item Value Reference Range Interpretation Comments HEMOGLOBIN A1c (test code = 30262) 6.6 % HEMOGLOBIN [id number] 00:00:00 Test Item Value Reference Range Interpretation Comments HEMOGLOBIN A1c (test code = 16675) 6.6 % HEMOGLOBIN [id number] 00:00:00 Test Item Value Reference Range Interpretation Comments HEMOGLOBIN A1c (test code = 35946) 6.6 % [id number] 00:00:00 Test Item Value Reference Range Interpretation Comments TSH, THIRD GENERATION (test code 2.080 UIU/ML = 2821) [id number] 00:00:00 Test Item Value Reference Range Interpretation Comments TSH, THIRD GENERATION (test code 2.080 UIU/ML = 2821) LIPID [id number] 00:00:00 Test Item Value Reference Range Interpretation Comments CHOLESTEROL (test code = 2210) 292 MG/DL TRIGLYCERIDES (test code = 2232) 184 MG/DL HDL CHOLESTEROL (test code = 2220) 51 MG/DL CALC LDL CHOL (test code = 2237) 205 MG/DL RISK RATIO LDL/HDL (test code = 4.02 RATIO 2238) HEMOGLOBIN [id number] 00:00:00 Test Item Value Reference Range Interpretation Comments HEMOGLOBIN A1c (test code = 29172) 6.6 % HEMOGLOBIN [id number] 00:00:00 Test Item Value Reference Range Interpretation Comments HEMOGLOBIN A1c (test code = 98303) 6.6 % [id number] 00:00:00 Test Item Value Reference Range Interpretation Comments TSH, THIRD GENERATION (test code 2.080 UIU/ML = 2821) [id number] 00:00:00 Test Item Value Reference Range Interpretation Comments TSH, THIRD GENERATION (test code 2.080 UIU/ML = 2821) [id number] 00:00:00 Test Item Value Reference Range Interpretation Comments TSH, THIRD GENERATION (test code 2.080 UIU/ML = 2821) LIPID [id number] 00:00:00 Test Item Value Reference Range Interpretation Comments CHOLESTEROL (test code = 2210) 292 MG/DL TRIGLYCERIDES (test code = 2232) 184 MG/DL HDL CHOLESTEROL (test code = 2220) 51 MG/DL CALC LDL CHOL (test code = 2237) 205 MG/DL RISK RATIO LDL/HDL (test code = 4.02 RATIO 2238) LIPID [id number] 00:00:00 Test Item Value Reference Range Interpretation Comments CHOLESTEROL (test code = 2210) 292 MG/DL TRIGLYCERIDES (test code = 2232) 184 MG/DL HDL CHOLESTEROL (test code = 2220) 51 MG/DL CALC LDL CHOL (test code = 2237) 205 MG/DL RISK RATIO LDL/HDL (test code = 4.02 RATIO 2238) HEMOGLOBIN [id number] 00:00:00 Test Item Value Reference Range Interpretation Comments HEMOGLOBIN A1c (test code = 59776) 6.6 % HEMOGLOBIN [id number] 00:00:00 Test Item Value Reference Range Interpretation Comments HEMOGLOBIN A1c (test code = 43784) 6.6 % HEMOGLOBIN [id number] 00:00:00 Test Item Value Reference Range Interpretation Comments HEMOGLOBIN A1c (test code = 25117) 6.6 % HEMOGLOBIN [id number] 00:00:00 Test Item Value Reference Range Interpretation Comments HEMOGLOBIN A1c (test code = 72206) 6.8 % HEMOGLOBIN [id number] 00:00:00 Test Item Value Reference Range Interpretation Comments HEMOGLOBIN A1c (test code = 97293) 6.8 % HEMOGLOBIN [id number] 00:00:00 Test Item Value Reference Range Interpretation Comments HEMOGLOBIN A1c (test code = 13840) 6.8 % LIPID [id number] 00:00:00 Test Item Value Reference Range Interpretation Comments CHOLESTEROL (test code = 2210) 303 MG/DL TRIGLYCERIDES (test code = 2232) 191 MG/DL HDL CHOLESTEROL (test code = 2220) 61 MG/DL CALC LDL CHOL (test code = 2237) 205 MG/DL RISK RATIO LDL/HDL (test code = 3.36 RATIO 2238) LIPID [id number] 00:00:00 Test Item Value Reference Range Interpretation Comments CHOLESTEROL (test code = 2210) 303 MG/DL TRIGLYCERIDES (test code = 2232) 191 MG/DL HDL CHOLESTEROL (test code = 2220) 61 MG/DL CALC LDL CHOL (test code = 2237) 205 MG/DL RISK RATIO LDL/HDL (test code = 3.36 RATIO 2238) [id number] 00:00:00 Test Item Value Reference Range Interpretation Comments TSH, THIRD GENERATION (test code 0.769 UIU/ML = 2821) [id number] 00:00:00 Test Item Value Reference Range Interpretation Comments TSH, THIRD GENERATION (test code 0.769 UIU/ML = 2821) [id number] 00:00:00 Test Item Value Reference Range Interpretation Comments TSH, THIRD GENERATION (test code 0.769 UIU/ML = 2821) COMPREHENSIVE METABOLIC [id number] 00:00:00 Test Item Value Reference Range Interpretation Comments GLUCOSE (test code = 2217) 131 MG/DL BUN (test code = 2208) 13 MG/DL CREATININE (test code = 2214) 0.65 MG/DL eGFR AMER. (test code 113 ML/MIN/1.73 = 43504) eGFR NON- AMER. (test 97 ML/MIN/1.73 code = 48387) CALC BUN/CREAT (test code = 20 RATIO [...] code = 2219) 23 U/L COMPREHENSIVE METABOLIC [id number] 00:00:00 Test Item Value Reference Range Interpretation Comments GLUCOSE (test code = 2217) 131 MG/DL BUN (test code = 2208) 13 MG/DL CREATININE (test code = 2214) 0.65 MG/DL eGFR AMER. (test code 113 ML/MIN/1.73 = 35129) eGFR NON- AMER. (test 97 ML/MIN/1.73 code = 88960) CALC BUN/CREAT (test code = 20 RATIO [...] (test code = 2219) 23 U/L HEMOGLOBIN [id number] 00:00:00 Test Item Value Reference Range Interpretation Comments HEMOGLOBIN A1c (test code = 28968) 6.8 % HEMOGLOBIN [id number] 00:00:00 Test Item Value Reference Range Interpretation Comments HEMOGLOBIN A1c (test code = 35832) 6.8 % HEMOGLOBIN [id number] 00:00:00 Test Item Value Reference Range Interpretation Comments HEMOGLOBIN A1c (test code = 40909) 6.8 % LIPID [id number] 00:00:00 Test Item Value Reference Range Interpretation Comments CHOLESTEROL (test code = 2210) 303 MG/DL TRIGLYCERIDES (test code = 2232) 191 MG/DL HDL CHOLESTEROL (test code = 2220) 61 MG/DL CALC LDL CHOL (test code = 2237) 205 MG/DL RISK RATIO LDL/HDL (test code = 3.36 RATIO 2238) LIPID [id number] 00:00:00 Test Item Value Reference Range Interpretation Comments CHOLESTEROL (test code = 2210) 303 MG/DL TRIGLYCERIDES (test code = 2232) 191 MG/DL HDL CHOLESTEROL (test code = 2220) 61 MG/DL CALC LDL CHOL (test code = 2237) 205 MG/DL RISK RATIO LDL/HDL (test code = 3.36 RATIO 2238) [id number] 00:00:00 Test Item Value Reference Range Interpretation Comments TSH, THIRD GENERATION (test code 0.769 UIU/ML = 2821) [id number] 00:00:00 Test Item Value Reference Range Interpretation Comments TSH, THIRD GENERATION (test code 0.769 UIU/ML = 2821) [id number] 00:00:00 Test Item Value Reference Range Interpretation Comments TSH, THIRD GENERATION (test code 0.769 UIU/ML = 2821) COMPREHENSIVE METABOLIC [id number] 00:00:00 Test Item Value Reference Range Interpretation Comments GLUCOSE (test code = 2217) 131 MG/DL BUN (test code = 2208) 13 MG/DL CREATININE (test code = 2214) 0.65 MG/DL eGFR AMER. (test code 113 ML/MIN/1.73 = 96723) eGFR NON- AMER. (test 97 ML/MIN/1.73 code = 55483) CALC BUN/CREAT (test code = 20 RATIO [...] code = 2219) 23 U/L COMPREHENSIVE METABOLIC [id number] 00:00:00 Test Item Value Reference Range Interpretation Comments GLUCOSE (test code = 2217) 131 MG/DL BUN (test code = 2208) 13 MG/DL CREATININE (test code = 2214) 0.65 MG/DL eGFR AMER. (test code 113 ML/MIN/1.73 = 77733) eGFR NON- AMER. (test 97 ML/MIN/1.73 code = 85117) CALC BUN/CREAT (test code = 20 RATIO [...] (test code = 2219) 23 U/L HEMOGLOBIN [id number] 00:00:00 Test Item Value Reference Range Interpretation Comments HEMOGLOBIN A1c (test code = 91906) 6.8 % HEMOGLOBIN [id number] 00:00:00 Test Item Value Reference Range Interpretation Comments HEMOGLOBIN A1c (test code = 91301) 6.8 % LIPID [id number] 00:00:00 Test Item Value Reference Range Interpretation Comments CHOLESTEROL (test code = 2210) 303 MG/DL TRIGLYCERIDES (test code = 2232) 191 MG/DL HDL CHOLESTEROL (test code = 2220) 61 MG/DL CALC LDL CHOL (test code = 2237) 205 MG/DL RISK RATIO LDL/HDL (test code = 3.36 RATIO 2238) [id number] 00:00:00 Test Item Value Reference Range Interpretation Comments TSH, THIRD GENERATION (test code 0.769 UIU/ML = 2821) [id number] 00:00:00 Test Item Value Reference Range Interpretation Comments TSH, THIRD GENERATION (test code 0.769 UIU/ML = 2821) COMPREHENSIVE METABOLIC [id number] 00:00:00 Test Item Value Reference Range Interpretation Comments GLUCOSE (test code = 2217) 131 MG/DL BUN (test code = 2208) 13 MG/DL CREATININE (test code = 2214) 0.65 MG/DL eGFR AMER. (test code 113 ML/MIN/1.73 = 72002) eGFR NON- AMER. (test 97 ML/MIN/1.73 code = 91364) CALC BUN/CREAT (test code = 20 RATIO [...] (test code = 2219) 23 U/L HEMOGLOBIN [id number] 00:00:00 Test Item Value Reference Range Interpretation Comments HEMOGLOBIN A1c (test code = 58829) 6.8 % HEMOGLOBIN [id number] 00:00:00 Test Item Value Reference Range Interpretation Comments HEMOGLOBIN A1c (test code = 47147) 6.8 % HEMOGLOBIN [id number] 00:00:00 Test Item Value Reference Range Interpretation Comments HEMOGLOBIN A1c (test code = 58710) 6.8 % LIPID [id number] 00:00:00 Test Item Value Reference Range Interpretation Comments CHOLESTEROL (test code = 2210) 303 MG/DL TRIGLYCERIDES (test code = 2232) 191 MG/DL HDL CHOLESTEROL (test code = 2220) 61 MG/DL CALC LDL CHOL (test code = 2237) 205 MG/DL RISK RATIO LDL/HDL (test code = 3.36 RATIO 2238) LIPID [id number] 00:00:00 Test Item Value Reference Range Interpretation Comments CHOLESTEROL (test code = 2210) 303 MG/DL TRIGLYCERIDES (test code = 2232) 191 MG/DL HDL CHOLESTEROL (test code = 2220) 61 MG/DL CALC LDL CHOL (test code = 2237) 205 MG/DL RISK RATIO LDL/HDL (test code = 3.36 RATIO 2238) [id number] 00:00:00 Test Item Value Reference Range Interpretation Comments TSH, THIRD GENERATION (test code 0.769 UIU/ML = 2821) [id number] 00:00:00 Test Item Value Reference Range Interpretation Comments TSH, THIRD GENERATION (test code 0.769 UIU/ML = 2821) [id number] 00:00:00 Test Item Value Reference Range Interpretation Comments TSH, THIRD GENERATION (test code 0.769 UIU/ML = 2821) COMPREHENSIVE METABOLIC [id number] 00:00:00 Test Item Value Reference Range Interpretation Comments GLUCOSE (test code = 2217) 131 MG/DL BUN (test code = 2208) 13 MG/DL CREATININE (test code = 2214) 0.65 MG/DL eGFR AMER. (test code 113 ML/MIN/1.73 = 26829) eGFR NON- AMER. (test 97 ML/MIN/1.73 code = 71122) CALC BUN/CREAT (test code = 20 RATIO [...] code = 2219) 23 U/L COMPREHENSIVE METABOLIC [id number] 00:00:00 Test Item Value Reference Range Interpretation Comments GLUCOSE (test code = 2217) 131 MG/DL BUN (test code = 2208) 13 MG/DL CREATININE (test code = 2214) 0.65 MG/DL eGFR AMER. (test code 113 ML/MIN/1.73 = 61650) eGFR NON- AMER. (test 97 ML/MIN/1.73 code = 25717) CALC BUN/CREAT (test code = 20 RATIO [...] (test code = 2219) 23 U/L HEMOGLOBIN [id number] 00:00:00 Test Item Value Reference Range Interpretation Comments HEMOGLOBIN A1c (test code = 69710) 6.6 % HEMOGLOBIN [id number] 00:00:00 Test Item Value Reference Range Interpretation Comments HEMOGLOBIN A1c (test code = 93021) 6.6 % HEMOGLOBIN [id number] 00:00:00 Test Item Value Reference Range Interpretation Comments HEMOGLOBIN A1c (test code = 70832) 6.6 % LIPID [id number] 00:00:00 Test Item Value Reference Range Interpretation Comments CHOLESTEROL (test code = 2210) 261 MG/DL TRIGLYCERIDES (test code = 2232) 159 MG/DL HDL CHOLESTEROL (test code = 2220) 82 MG/DL CALC LDL CHOL (test code = 2237) 150 MG/DL RISK RATIO LDL/HDL (test code = 1.83 RATIO 2238) LIPID [id number] 00:00:00 Test Item Value Reference Range Interpretation Comments CHOLESTEROL (test code = 2210) 261 MG/DL TRIGLYCERIDES (test code = 2232) 159 MG/DL HDL CHOLESTEROL (test code = 2220) 82 MG/DL CALC LDL CHOL (test code = 2237) 150 MG/DL RISK RATIO LDL/HDL (test code = 1.83 RATIO 2238) COMPREHENSIVE METABOLIC [id number] 00:00:00 Test Item Value Reference Range Interpretation Comments GLUCOSE (test code = 2217) 144 MG/DL BUN (test code = 2208) 15 MG/DL CREATININE (test code = 2214) 0.85 MG/DL eGFR AMER. (test code 87 ML/MIN/1.73 = 36579) eGFR NON- AMER. (test 75 ML/MIN/1.73 code = 86244) CALC BUN/CREAT (test code = 18 RATIO [...] code = 2219) 50 U/L COMPREHENSIVE METABOLIC [id number] 00:00:00 Test Item Value Reference Range Interpretation Comments GLUCOSE (test code = 2217) 144 MG/DL BUN (test code = 2208) 15 MG/DL CREATININE (test code = 2214) 0.85 MG/DL eGFR AMER. (test code 87 ML/MIN/1.73 = 32980) eGFR NON- AMER. (test 75 ML/MIN/1.73 code = 45942) CALC BUN/CREAT (test code = 18 RATIO [...] THYROX. BIND. CAPAC. (test code 1.1 = 64422) T4 (THYROXINE) (test code = 4.3 UG/DL 2819) CORRECTED T4 (FTI) (test code = 3.9 UG/DL 2820) TSH, THIRD GENERATION (test 18.900 UIU/ML code = 2821) THYROID II PROFILE (T3U, T4, T7, TSH)2020-05-23 00:00:00 Test Item Value Reference Range Interpretation Comments T-UPTAKE (test code = 2817) 30.2 % THYROX. BIND. CAPAC. (test code 1.1 = 93486) T4 (THYROXINE) (test code = 4.3 UG/DL 2819) CORRECTED T4 (FTI) (test code = 3.9 UG/DL 2820) TSH, THIRD GENERATION (test 18.900 UIU/ML code = 2821) HEMOGLOBIN [id number] 00:00:00 Test Item Value Reference Range Interpretation Comments HEMOGLOBIN A1c (test code = 26022) 6.6 % HEMOGLOBIN [id number] 00:00:00 Test Item Value Reference Range Interpretation Comments HEMOGLOBIN A1c (test code = 81125) 6.6 % HEMOGLOBIN [id number] 00:00:00 Test Item Value Reference Range Interpretation Comments HEMOGLOBIN A1c (test code = 55162) 6.6 % LIPID [id number] 00:00:00 Test Item Value Reference Range Interpretation Comments CHOLESTEROL (test code = 2210) 261 MG/DL TRIGLYCERIDES (test code = 2232) 159 MG/DL HDL CHOLESTEROL (test code = 2220) 82 MG/DL CALC LDL CHOL (test code = 2237) 150 MG/DL RISK RATIO LDL/HDL (test code = 1.83 RATIO 2238) LIPID [id number] 00:00:00 Test Item Value Reference Range Interpretation Comments CHOLESTEROL (test code = 2210) 261 MG/DL TRIGLYCERIDES (test code = 2232) 159 MG/DL HDL CHOLESTEROL (test code = 2220) 82 MG/DL CALC LDL CHOL (test code = 2237) 150 MG/DL RISK RATIO LDL/HDL (test code = 1.83 RATIO 2238) COMPREHENSIVE METABOLIC [id number] 00:00:00 Test Item Value Reference Range Interpretation Comments GLUCOSE (test code = 2217) 144 MG/DL BUN (test code = 2208) 15 MG/DL CREATININE (test code = 2214) 0.85 MG/DL eGFR AMER. (test code 87 ML/MIN/1.73 = 70312) eGFR NON- AMER. (test 75 ML/MIN/1.73 code = 33853) CALC BUN/CREAT (test code = 18 RATIO [...] code = 2219) 50 U/L COMPREHENSIVE METABOLIC [id number] 00:00:00 Test Item Value Reference Range Interpretation Comments GLUCOSE (test code = 2217) 144 MG/DL BUN (test code = 2208) 15 MG/DL CREATININE (test code = 2214) 0.85 MG/DL eGFR AMER. (test code 87 ML/MIN/1.73 = 58067) eGFR NON- AMER. (test 75 ML/MIN/1.73 code = 31672) CALC BUN/CREAT (test code = 18 RATIO [...] THYROX. BIND. CAPAC. (test code 1.1 = 24007) T4 (THYROXINE) (test code = 4.3 UG/DL 2819) CORRECTED T4 (FTI) (test code = 3.9 UG/DL 2820) TSH, THIRD GENERATION (test 18.900 UIU/ML code = 2821) THYROID II PROFILE (T3U, T4, T7, TSH)2020-05-23 00:00:00 Test Item Value Reference Range Interpretation Comments T-UPTAKE (test code = 2817) 30.2 % THYROX. BIND. CAPAC. (test code 1.1 = 92382) T4 (THYROXINE) (test code = 4.3 UG/DL 2819) CORRECTED T4 (FTI) (test code = 3.9 UG/DL 2820) TSH, THIRD GENERATION (test 18.900 UIU/ML code = 2821) HEMOGLOBIN [id number] 00:00:00 Test Item Value Reference Range Interpretation Comments HEMOGLOBIN A1c (test code = 77807) 6.6 % HEMOGLOBIN [id number] 00:00:00 Test Item Value Reference Range Interpretation Comments HEMOGLOBIN A1c (test code = 43720) 6.6 % LIPID [id number] 00:00:00 Test Item Value Reference Range Interpretation Comments CHOLESTEROL (test code = 2210) 261 MG/DL TRIGLYCERIDES (test code = 2232) 159 MG/DL HDL CHOLESTEROL (test code = 2220) 82 MG/DL CALC LDL CHOL (test code = 2237) 150 MG/DL RISK RATIO LDL/HDL (test code = 1.83 RATIO 2238) COMPREHENSIVE METABOLIC [id number] 00:00:00 Test Item Value Reference Range Interpretation Comments GLUCOSE (test code = 2217) 144 MG/DL BUN (test code = 2208) 15 MG/DL CREATININE (test code = 2214) 0.85 MG/DL eGFR AMER. (test code 87 ML/MIN/1.73 = 09704) eGFR NON- AMER. (test 75 ML/MIN/1.73 code = 34497) CALC BUN/CREAT (test code = 18 RATIO [...] THYROX. BIND. CAPAC. (test code 1.1 = 71242) T4 (THYROXINE) (test code = 4.3 UG/DL 2819) CORRECTED T4 (FTI) (test code = 3.9 UG/DL 2820) TSH, THIRD GENERATION (test 18.900 UIU/ML code = 2821) HEMOGLOBIN [id number] 00:00:00 Test Item Value Reference Range Interpretation Comments HEMOGLOBIN A1c (test code = 37336) 6.6 % HEMOGLOBIN [id number] 00:00:00 Test Item Value Reference Range Interpretation Comments HEMOGLOBIN A1c (test code = 66961) 6.6 % HEMOGLOBIN [id number] 00:00:00 Test Item Value Reference Range Interpretation Comments HEMOGLOBIN A1c (test code = 60281) 6.6 % LIPID [id number] 00:00:00 Test Item Value Reference Range Interpretation Comments CHOLESTEROL (test code = 2210) 261 MG/DL TRIGLYCERIDES (test code = 2232) 159 MG/DL HDL CHOLESTEROL (test code = 2220) 82 MG/DL CALC LDL CHOL (test code = 2237) 150 MG/DL RISK RATIO LDL/HDL (test code = 1.83 RATIO 2238) LIPID [id number] 00:00:00 Test Item Value Reference Range Interpretation Comments CHOLESTEROL (test code = 2210) 261 MG/DL TRIGLYCERIDES (test code = 2232) 159 MG/DL HDL CHOLESTEROL (test code = 2220) 82 MG/DL CALC LDL CHOL (test code = 2237) 150 MG/DL RISK RATIO LDL/HDL (test code = 1.83 RATIO 2238) COMPREHENSIVE METABOLIC [id number] 00:00:00 Test Item Value Reference Range Interpretation Comments GLUCOSE (test code = 2217) 144 MG/DL BUN (test code = 2208) 15 MG/DL CREATININE (test code = 2214) 0.85 MG/DL eGFR AMER. (test code 87 ML/MIN/1.73 = 45374) eGFR NON- AMER. (test 75 ML/MIN/1.73 code = 98765) CALC BUN/CREAT (test code = 18 RATIO [...] code = 2219) 50 U/L COMPREHENSIVE METABOLIC [id number] 00:00:00 Test Item Value Reference Range Interpretation Comments GLUCOSE (test code = 2217) 144 MG/DL BUN (test code = 2208) 15 MG/DL CREATININE (test code = 2214) 0.85 MG/DL eGFR AMER. (test code 87 ML/MIN/1.73 = 14238) eGFR NON- AMER. (test 75 ML/MIN/1.73 code = 72165) CALC BUN/CREAT (test code = 18 RATIO [...] THYROX. BIND. CAPAC. (test code 1.1 = 91198) T4 (THYROXINE) (test code = 4.3 UG/DL 2819) CORRECTED T4 (FTI) (test code = 3.9 UG/DL 2820) TSH, THIRD GENERATION (test 18.900 UIU/ML code = 2821) THYROID II PROFILE (T3U, T4, T7, TSH)2020-05-23 00:00:00 Test Item Value Reference Range Interpretation Comments T-UPTAKE (test code = 7) 30.2 % THYROX. BIND. CAPAC. (test code 1.1 = 01482) T4 (THYROXINE) (test code = 4.3 UG/DL 2819) CORRECTED T4 (FTI) (test code = 3.9 UG/DL 2820) TSH, THIRD GENERATION (test 18.900 UIU/ML code = 2821) HEMOGLOBIN [id number] 00:00:00 Test Item Value Reference Range Interpretation Comments HEMOGLOBIN A1c (test code = 02314) 6.7 % HEMOGLOBIN [id number] 00:00:00 Test Item Value Reference Range Interpretation Comments HEMOGLOBIN A1c (test code = 39411) 6.7 % HEMOGLOBIN [id number] 00:00:00 Test Item Value Reference Range Interpretation Comments HEMOGLOBIN A1c (test code = 77884) 6.7 % LIPID [id number] 00:00:00 Test Item Value Reference Range Interpretation Comments CHOLESTEROL (test code = 2210) 267 MG/DL TRIGLYCERIDES (test code = 2232) 137 MG/DL HDL CHOLESTEROL (test code = 2220) 48 MG/DL CALC LDL CHOL (test code = 2237) 192 MG/DL RISK RATIO LDL/HDL (test code = 4.00 RATIO 2238) LIPID [id number] 00:00:00 Test Item Value Reference Range Interpretation Comments CHOLESTEROL (test code = 2210) 267 MG/DL TRIGLYCERIDES (test code = 2232) 137 MG/DL HDL CHOLESTEROL (test code = 2220) 48 MG/DL CALC LDL CHOL (test code = 2237) 192 MG/DL RISK RATIO LDL/HDL (test code = 4.00 RATIO 2238) COMPREHENSIVE METABOLIC [id number] 00:00:00 Test Item Value Reference Range Interpretation Comments GLUCOSE (test code = 2217) 155 MG/DL BUN (test code = 2208) 14 MG/DL CREATININE (test code = 2214) 0.52 MG/DL eGFR AMER. (test code 122 ML/MIN/1.73 = 21900) eGFR NON- AMER. (test 105 ML/MIN/1.73 code = 89271) CALC BUN/CREAT (test code = 27 RATIO [...] code = 2219) 27 U/L COMPREHENSIVE METABOLIC [id number] 00:00:00 Test Item Value Reference Range Interpretation Comments GLUCOSE (test code = 2217) 155 MG/DL BUN (test code = 2208) 14 MG/DL CREATININE (test code = 2214) 0.52 MG/DL eGFR AMER. (test code 122 ML/MIN/1.73 = 31277) eGFR NON- AMER. (test 105 ML/MIN/1.73 code = 22095) CALC BUN/CREAT (test code = 27 RATIO 2234) SODIUM (test code = 2231) [...] = 2203) AST (test code = 221) 17 U/L ALT (test code = 221) 27 U/L THYROID II PROFILE (T3U, T4, T7, TSH)2019 00:00:00 Test Item Value Reference Range Interpretation Comments T-UPTAKE (test code = 2816) 33.1 % THYROX. BIND. CAPAC. (test code 1.0 = 73998) T4 (THYROXINE) (test code = 4.7 UG/DL 2819) CORRECTED T4 (FTI) (test code = 4.7 UG/DL 2820) TSH, THIRD GENERATION (test code 0.201 UIU/ML = 2821) THYROID II PROFILE (T3U, T4, T7, TSH)2019 00:00:00 Test Item Value Reference Range Interpretation Comments T-UPTAKE (test code = 2816) 33.1 % THYROX. BIND. CAPAC. (test code 1.0 = 87350) T4 (THYROXINE) (test code = 4.7 UG/DL 2819) CORRECTED T4 (FTI) (test code = 4.7 UG/DL 2820) TSH, THIRD GENERATION (test code 0.201 UIU/ML = 2821) HEMOGLOBIN [id number] 00:00:00 Test Item Value Reference Range Interpretation Comments HEMOGLOBIN A1c (test code = 56374) 6.7 % HEMOGLOBIN [id number] 00:00:00 Test Item Value Reference Range Interpretation Comments HEMOGLOBIN A1c (test code = 86399) 6.7 % HEMOGLOBIN [id number] 00:00:00 Test Item Value Reference Range Interpretation Comments HEMOGLOBIN A1c (test code = 96698) 6.7 % LIPID [id number] 00:00:00 Test Item Value Reference Range Interpretation Comments CHOLESTEROL (test code = 2210) 267 MG/DL TRIGLYCERIDES (test code = 2232) 137 MG/DL HDL CHOLESTEROL (test code = 2220) 48 MG/DL CALC LDL CHOL (test code = 2237) 192 MG/DL RISK RATIO LDL/HDL (test code = 4.00 RATIO 2238) LIPID [id number] 00:00:00 Test Item Value Reference Range Interpretation Comments CHOLESTEROL (test code = 2210) 267 MG/DL TRIGLYCERIDES (test code = 2232) 137 MG/DL HDL CHOLESTEROL (test code = 2220) 48 MG/DL CALC LDL CHOL (test code = 2237) 192 MG/DL RISK RATIO LDL/HDL (test code = 4.00 RATIO 2238) COMPREHENSIVE METABOLIC [id number] 00:00:00 Test Item Value Reference Range Interpretation Comments GLUCOSE (test code = 2217) 155 MG/DL BUN (test code = 2208) 14 MG/DL CREATININE (test code = 2214) 0.52 MG/DL eGFR AMER. (test code 122 ML/MIN/1.73 = 65539) eGFR NON- AMER. (test 105 ML/MIN/1.73 code = 65421) CALC BUN/CREAT (test code = 27 RATIO [...] code = 2219) 27 U/L COMPREHENSIVE METABOLIC [id number] 00:00:00 Test Item Value Reference Range Interpretation Comments GLUCOSE (test code = 2217) 155 MG/DL BUN (test code = 2208) 14 MG/DL CREATININE (test code = 2214) 0.52 MG/DL eGFR AMER. (test code 122 ML/MIN/1.73 = 95678) eGFR NON- AMER. (test 105 ML/MIN/1.73 code = 84106) CALC BUN/CREAT (test code = 27 RATIO [...] THYROX. BIND. CAPAC. (test code 1.0 = 20488) T4 (THYROXINE) (test code = 4.7 UG/DL 2819) CORRECTED T4 (FTI) (test code = 4.7 UG/DL 2820) TSH, THIRD GENERATION (test code 0.201 UIU/ML = 2821) THYROID II PROFILE (T3U, T4, T7, TSH)2019 00:00:00 Test Item Value Reference Range Interpretation Comments T-UPTAKE (test code = 281) 33.1 % THYROX. BIND. CAPAC. (test code 1.0 = 16294) T4 (THYROXINE) (test code = 4.7 UG/DL 2819) CORRECTED T4 (FTI) (test code = 4.7 UG/DL 2820) TSH, THIRD GENERATION (test code 0.201 UIU/ML = 2821) HEMOGLOBIN [id number] 00:00:00 Test Item Value Reference Range Interpretation Comments HEMOGLOBIN A1c (test code = 45993) 6.7 % HEMOGLOBIN [id number] 00:00:00 Test Item Value Reference Range Interpretation Comments HEMOGLOBIN A1c (test code = 98652) 6.7 % LIPID [id number] 00:00:00 Test Item Value Reference Range Interpretation Comments CHOLESTEROL (test code = 2210) 267 MG/DL TRIGLYCERIDES (test code = 2232) 137 MG/DL HDL CHOLESTEROL (test code = 2220) 48 MG/DL CALC LDL CHOL (test code = 2237) 192 MG/DL RISK RATIO LDL/HDL (test code = 4.00 RATIO 2238) COMPREHENSIVE METABOLIC [id number] 00:00:00 Test Item Value Reference Range Interpretation Comments GLUCOSE (test code = 2217) 155 MG/DL BUN (test code = 2208) 14 MG/DL CREATININE (test code = 2214) 0.52 MG/DL eGFR AMER. (test code 122 ML/MIN/1.73 = 37654) eGFR NON- AMER. (test 105 ML/MIN/1.73 code = 96813) CALC BUN/CREAT (test code = 27 RATIO [...] THYROX. BIND. CAPAC. (test code 1.0 = 24594) T4 (THYROXINE) (test code = 4.7 UG/DL 2819) CORRECTED T4 (FTI) (test code = 4.7 UG/DL 2820) TSH, THIRD GENERATION (test code 0.201 UIU/ML = 2821) HEMOGLOBIN [id number] 00:00:00 Test Item Value Reference Range Interpretation Comments HEMOGLOBIN A1c (test code = 28766) 6.7 % HEMOGLOBIN [id number] 00:00:00 Test Item Value Reference Range Interpretation Comments HEMOGLOBIN A1c (test code = 79284) 6.7 % HEMOGLOBIN [id number] 00:00:00 Test Item Value Reference Range Interpretation Comments HEMOGLOBIN A1c (test code = 82440) 6.7 % LIPID [id number] 00:00:00 Test Item Value Reference Range Interpretation Comments CHOLESTEROL (test code = 2210) 267 MG/DL TRIGLYCERIDES (test code = 2232) 137 MG/DL HDL CHOLESTEROL (test code = 2220) 48 MG/DL CALC LDL CHOL (test code = 2237) 192 MG/DL RISK RATIO LDL/HDL (test code = 4.00 RATIO 2238) LIPID [id number] 00:00:00 Test Item Value Reference Range Interpretation Comments CHOLESTEROL (test code = 2210) 267 MG/DL TRIGLYCERIDES (test code = 2232) 137 MG/DL HDL CHOLESTEROL (test code = 2220) 48 MG/DL CALC LDL CHOL (test code = 2237) 192 MG/DL RISK RATIO LDL/HDL (test code = 4.00 RATIO 2238) COMPREHENSIVE METABOLIC [id number] 00:00:00 Test Item Value Reference Range Interpretation Comments GLUCOSE (test code = 2217) 155 MG/DL BUN (test code = 2208) 14 MG/DL CREATININE (test code = 2214) 0.52 MG/DL eGFR AMER. (test code 122 ML/MIN/1.73 = 95411) eGFR NON- AMER. (test 105 ML/MIN/1.73 code = 36226) CALC BUN/CREAT (test code = 27 RATIO [...] code = 2219) 27 U/L COMPREHENSIVE METABOLIC [id number] 00:00:00 Test Item Value Reference Range Interpretation Comments GLUCOSE (test code = 2217) 155 MG/DL BUN (test code = 2208) 14 MG/DL CREATININE (test code = 2214) 0.52 MG/DL eGFR AMER. (test code 122 ML/MIN/1.73 = 24774) eGFR NON- AMER. (test 105 ML/MIN/1.73 code = 92108) CALC BUN/CREAT (test code = 27 RATIO [...] THYROX. BIND. CAPAC. (test code 1.0 = 88200) T4 (THYROXINE) (test code = 4.7 UG/DL 2819) CORRECTED T4 (FTI) (test code = 4.7 UG/DL 2820) TSH, THIRD GENERATION (test code 0.201 UIU/ML = 2821) THYROID II PROFILE (T3U, T4, T7, TSH)2019 00:00:00 Test Item Value Reference Range Interpretation Comments T-UPTAKE (test code = 2817) 33.1 % THYROX. BIND. CAPAC. (test code 1.0 = 08794) T4 (THYROXINE) (test code = 4.7 UG/DL 2819) CORRECTED T4 (FTI) (test code = 4.7 UG/DL 2820) TSH, THIRD GENERATION (test code 0.201 UIU/ML = 2821) SARS-CoV-2 (COVID-19) by RT-PCR (HIGH RISK)2019-09-18 00:00:00 Test Item Value Reference Range Interpretation Comments SARS-CoV-2 INTERPRETATION (test NEGATIVE code = 25804) SOURCE (test code = 34536) NOT SPECIFIED SARS-CoV-2 (COVID-19) by RT-PCR (HIGH RISK)2019-09-18 00:00:00 Test Item Value Reference Range Interpretation Comments SARS-CoV-2 INTERPRETATION (test NEGATIVE code = 17973) SOURCE (test code = 69474) NOT SPECIFIED SARS-CoV-2 (COVID-19) by RT-PCR (HIGH RISK)2019-09-18 00:00:00 Test Item Value Reference Range Interpretation Comments SARS-CoV-2 INTERPRETATION (test NEGATIVE code = 92251) SOURCE (test code = 53674) NOT SPECIFIED SARS-CoV-2 (COVID-19) by RT-PCR (HIGH RISK)2019-09-18 00:00:00 Test Item Value Reference Range Interpretation Comments SARS-CoV-2 INTERPRETATION (test NEGATIVE code = 68361) SOURCE (test code = 65170) NOT SPECIFIED SARS-CoV-2 (COVID-19) by RT-PCR (HIGH RISK)2019-09-18 00:00:00 Test Item Value Reference Range Interpretation Comments SARS-CoV-2 INTERPRETATION (test NEGATIVE code = 66597) SOURCE (test code = 49501) NOT SPECIFIED SARS-CoV-2 (COVID-19) by RT-PCR (HIGH RISK)2019-09-18 00:00:00 Test Item Value Reference Range Interpretation Comments SARS-CoV-2 INTERPRETATION (test NEGATIVE code = 02511) SOURCE (test code = 54068) NOT SPECIFIED SARS-CoV-2 (COVID-19) by RT-PCR (HIGH RISK)2019-09-18 00:00:00 Test Item Value Reference Range Interpretation Comments SARS-CoV-2 INTERPRETATION (test NEGATIVE code = 42264) SOURCE (test code = 74223) NOT SPECIFIED [id number] 00:00:00 Test Item Value Reference Range Interpretation Comments TSH, THIRD GENERATION (test code 2.490 UIU/ML = 2821) [id number] 00:00:00 Test Item Value Reference Range Interpretation Comments TSH, THIRD GENERATION (test code 2.490 UIU/ML = 2821) [id number] 00:00:00 Test Item Value Reference Range Interpretation Comments TSH, THIRD GENERATION (test code 2.490 UIU/ML = 2821) HEMOGLOBIN [id number] 00:00:00 Test Item Value Reference Range Interpretation Comments HEMOGLOBIN A1c (test code = 33604) 6.4 % HEMOGLOBIN [id number] 00:00:00 Test Item Value Reference Range Interpretation Comments HEMOGLOBIN A1c (test code = 61395) 6.4 % HEMOGLOBIN [id number] 00:00:00 Test Item Value Reference Range Interpretation Comments HEMOGLOBIN A1c (test code = 35497) 6.4 % COMPREHENSIVE METABOLIC [id number] 00:00:00 Test Item Value Reference Range Interpretation Comments GLUCOSE (test code = 2217) 206 MG/DL BUN (test code = 2208) 23 MG/DL CREATININE (test code = 2214) 0.67 MG/DL eGFR AMER. (test code 112 ML/MIN/1.73 = 24865) eGFR NON- AMER. (test 97 ML/MIN/1.73 code = 14984) CALC BUN/CREAT (test code = 34 RATIO [...] code = 2219) 25 U/L COMPREHENSIVE METABOLIC [id number] 00:00:00 Test Item Value Reference Range Interpretation Comments GLUCOSE (test code = 2217) 206 MG/DL BUN (test code = 2208) 23 MG/DL CREATININE (test code = 2214) 0.67 MG/DL eGFR AMER. (test code 112 ML/MIN/1.73 = 07665) eGFR NON- AMER. (test 97 ML/MIN/1.73 code = 07665) CALC BUN/CREAT (test code = 34 RATIO [...] ALT (test code = 2219) 25 U/L [id number] 00:00:00 Test Item Value Reference Range Interpretation Comments TSH, THIRD GENERATION (test code 2.490 UIU/ML = 2821) [id number] 00:00:00 Test Item Value Reference Range Interpretation Comments TSH, THIRD GENERATION (test code 2.490 UIU/ML = 2821) [id number] 00:00:00 Test Item Value Reference Range Interpretation Comments TSH, THIRD GENERATION (test code 2.490 UIU/ML = 2821) HEMOGLOBIN [id number] 00:00:00 Test Item Value Reference Range Interpretation Comments HEMOGLOBIN A1c (test code = 78444) 6.4 % HEMOGLOBIN [id number] 00:00:00 Test Item Value Reference Range Interpretation Comments HEMOGLOBIN A1c (test code = 56746) 6.4 % HEMOGLOBIN [id number] 00:00:00 Test Item Value Reference Range Interpretation Comments HEMOGLOBIN A1c (test code = 65203) 6.4 % COMPREHENSIVE METABOLIC [id number] 00:00:00 Test Item Value Reference Range Interpretation Comments GLUCOSE (test code = 2217) 206 MG/DL BUN (test code = 2208) 23 MG/DL CREATININE (test code = 2214) 0.67 MG/DL eGFR AMER. (test code 112 ML/MIN/1.73 = 61871) eGFR NON- AMER. (test 97 ML/MIN/1.73 code = 58913) CALC BUN/CREAT (test code = 34 RATIO [...] code = 2219) 25 U/L COMPREHENSIVE METABOLIC [id number] 00:00:00 Test Item Value Reference Range Interpretation Comments GLUCOSE (test code = 2217) 206 MG/DL BUN (test code = 2208) 23 MG/DL CREATININE (test code = 2214) 0.67 MG/DL eGFR AMER. (test code 112 ML/MIN/1.73 = 25545) eGFR NON- AMER. (test 97 ML/MIN/1.73 code = 10555) CALC BUN/CREAT (test code = 34 RATIO 223) SODIUM (test code = 2231) 142 MEQ/L [...] ALT (test code = 2219) 25 U/L [id number] 00:00:00 Test Item Value Reference Range Interpretation Comments TSH, THIRD GENERATION (test code 2.490 UIU/ML = 2821) [id number] 00:00:00 Test Item Value Reference Range Interpretation Comments TSH, THIRD GENERATION (test code 2.490 UIU/ML = 2821) HEMOGLOBIN [id number] 00:00:00 Test Item Value Reference Range Interpretation Comments HEMOGLOBIN A1c (test code = 28147) 6.4 % HEMOGLOBIN [id number] 00:00:00 Test Item Value Reference Range Interpretation Comments HEMOGLOBIN A1c (test code = 65409) 6.4 % COMPREHENSIVE METABOLIC [id number] 00:00:00 Test Item Value Reference Range Interpretation Comments GLUCOSE (test code = 2217) 206 MG/DL BUN (test code = 2208) 23 MG/DL CREATININE (test code = 2214) 0.67 MG/DL eGFR AMER. (test code 112 ML/MIN/1.73 = 73932) eGFR NON- AMER. (test 97 ML/MIN/1.73 code = 61948) CALC BUN/CREAT (test code = 34 RATIO [...] ALT (test code = 2219) 25 U/L [id number] 00:00:00 Test Item Value Reference Range Interpretation Comments TSH, THIRD GENERATION (test code 2.490 UIU/ML = 2821) [id number] 00:00:00 Test Item Value Reference Range Interpretation Comments TSH, THIRD GENERATION (test code 2.490 UIU/ML = 2821) [id number] 00:00:00 Test Item Value Reference Range Interpretation Comments TSH, THIRD GENERATION (test code 2.490 UIU/ML = 2821) HEMOGLOBIN [id number] 00:00:00 Test Item Value Reference Range Interpretation Comments HEMOGLOBIN A1c (test code = 25706) 6.4 % HEMOGLOBIN [id number] 00:00:00 Test Item Value Reference Range Interpretation Comments HEMOGLOBIN A1c (test code = 81562) 6.4 % HEMOGLOBIN [id number] 00:00:00 Test Item Value Reference Range Interpretation Comments HEMOGLOBIN A1c (test code = 97256) 6.4 % COMPREHENSIVE METABOLIC [id number] 00:00:00 Test Item Value Reference Range Interpretation Comments GLUCOSE (test code = 2217) 206 MG/DL BUN (test code = 2208) 23 MG/DL CREATININE (test code = 2214) 0.67 MG/DL eGFR AMER. (test code 112 ML/MIN/1.73 = 88531) eGFR NON- AMER. (test 97 ML/MIN/1.73 code = 74633) CALC BUN/CREAT (test code = 34 RATIO [...] code = 2219) 25 U/L COMPREHENSIVE METABOLIC [id number] 00:00:00 Test Item Value Reference Range Interpretation Comments GLUCOSE (test code = 2217) 206 MG/DL BUN (test code = 2208) 23 MG/DL CREATININE (test code = 2214) 0.67 MG/DL eGFR AMER. (test code 112 ML/MIN/1.73 = 33396) eGFR NON- AMER. (test 97 ML/MIN/1.73 code = 38177) CALC BUN/CREAT (test code = 34 RATIO [...] = 2219) 25 U/L VAGINAL PATHOGENS DNA [id number] 00:00:00 Test Item Value Reference Range Interpretation Comments MARK SPECIES (test code = ) NEGATIVE G. VAGINALIS (test code = ) NEGATIVE T. VAGINALIS (test code = ) NEGATIVE VAGINAL PATHOGENS DNA [id number] 00:00:00 Test Item Value Reference Range Interpretation Comments MARK SPECIES (test code = 80424) NEGATIVE G. VAGINALIS (test code = 36554) NEGATIVE T. VAGINALIS (test code = 88397) NEGATIVE VAGINAL PATHOGENS DNA [id number] 00:00:00 Test Item Value Reference Range Interpretation Comments MARK SPECIES (test code = 77658) NEGATIVE G. VAGINALIS (test code = 43878) NEGATIVE T. VAGINALIS (test code = 97999) NEGATIVE VAGINAL PATHOGENS DNA [id number] 00:00:00 Test Item Value Reference Range Interpretation Comments MARK SPECIES (test code = 43458) NEGATIVE G. VAGINALIS (test code = 59834) NEGATIVE T. VAGINALIS (test code = 38286) NEGATIVE VAGINAL PATHOGENS DNA [id number] 00:00:00 Test Item Value Reference Range Interpretation Comments MARK SPECIES (test code = 21325) NEGATIVE G. VAGINALIS (test code = 27935) NEGATIVE T. VAGINALIS (test code = 96768) NEGATIVE VAGINAL PATHOGENS DNA [id number] 00:00:00 Test Item Value Reference Range Interpretation Comments MARK SPECIES (test code = 89009) NEGATIVE G. VAGINALIS (test code = 32489) NEGATIVE T. VAGINALIS (test code = 24488) NEGATIVE VAGINAL PATHOGENS DNA [id number] 00:00:00 Test Item Value Reference Range Interpretation Comments MARK SPECIES (test code = 50479) NEGATIVE G. VAGINALIS (test code = 44588) NEGATIVE T. VAGINALIS (test code = 49546) NEGATIVE HEMOGLOBIN A1c [ADDED]2018-12-01 00:00:00 Test Item Value Reference Range Interpretation Comments HEMOGLOBIN A1c (test code = 90077) 6.7 % HEMOGLOBIN A1c [ADDED]2018-12-01 00:00:00 Test Item Value Reference Range Interpretation Comments HEMOGLOBIN A1c (test code = 83062) 6.7 % HEMOGLOBIN A1c [ADDED]2018-12-01 00:00:00 Test Item Value Reference Range Interpretation Comments HEMOGLOBIN A1c (test code = 16063) 6.7 % COMPREHENSIVE METABOLIC PANEL [ADDED]2018-12-01 00:00:00 Test Item Value Reference Range Interpretation Comments GLUCOSE (test code = 2217) 136 MG/DL BUN (test code = 2208) 15 MG/DL CREATININE (test code = 2214) 0.64 MG/DL eGFR AMER. (test code 115 ML/MIN/1.73 = 16750) eGFR NON- AMER. (test 99 ML/MIN/1.73 code = 82940) CALC BUN/CREAT (test code = 23 RATIO [...] eGFR AMER. (test code 115 ML/MIN/1.73 = 80351) eGFR NON- AMER. (test 99 ML/MIN/1.73 code = 99567) CALC BUN/CREAT (test code = 23 RATIO [...] Interpretation Comments HEMOGLOBIN A1c (test code = 30408) 6.7 % HEMOGLOBIN A1c [ADDED]2018-12-01 00:00:00 Test Item Value Reference Range Interpretation Comments HEMOGLOBIN A1c (test code = 43039) 6.7 % HEMOGLOBIN A1c [ADDED]2018-12-01 00:00:00 Test Item Value Reference Range Interpretation Comments HEMOGLOBIN A1c (test code = 32502) 6.7 % COMPREHENSIVE METABOLIC PANEL [ADDED]2018-12-01 00:00:00 Test Item Value Reference Range Interpretation Comments GLUCOSE (test code = 2217) 136 MG/DL BUN (test code = 2208) 15 MG/DL CREATININE (test code = 2214) 0.64 MG/DL eGFR AMER. (test code 115 ML/MIN/1.73 = 15655) eGFR NON- AMER. (test 99 ML/MIN/1.73 code = 30712) CALC BUN/CREAT (test code = 23 RATIO [...] eGFR AMER. (test code 115 ML/MIN/1.73 = 87540) eGFR NON- AMER. (test 99 ML/MIN/1.73 code = 51885) CALC BUN/CREAT (test code = 23 RATIO [...] Interpretation Comments HEMOGLOBIN A1c (test code = 73892) 6.7 % HEMOGLOBIN A1c [ADDED]2018-12-01 00:00:00 Test Item Value Reference Range Interpretation Comments HEMOGLOBIN A1c (test code = 69855) 6.7 % COMPREHENSIVE METABOLIC PANEL [ADDED]2018-12-01 00:00:00 Test Item Value Reference Range Interpretation Comments GLUCOSE (test code = 2217) 136 MG/DL BUN (test code = 2208) 15 MG/DL CREATININE (test code = 2214) 0.64 MG/DL eGFR AMER. (test code 115 ML/MIN/1.73 = 98238) eGFR NON- AMER. (test 99 ML/MIN/1.73 code = 18552) CALC BUN/CREAT (test code = 23 RATIO [...] Interpretation Comments HEMOGLOBIN A1c (test code = 13259) 6.7 % HEMOGLOBIN A1c [ADDED]2018-12-01 00:00:00 Test Item Value Reference Range Interpretation Comments HEMOGLOBIN A1c (test code = 97058) 6.7 % HEMOGLOBIN A1c [ADDED]2018-12-01 00:00:00 Test Item Value Reference Range Interpretation Comments HEMOGLOBIN A1c (test code = 77713) 6.7 % COMPREHENSIVE METABOLIC PANEL [ADDED]2018-12-01 00:00:00 Test Item Value Reference Range Interpretation Comments GLUCOSE (test code = 2217) 136 MG/DL BUN (test code = 2208) 15 MG/DL CREATININE (test code = 2214) 0.64 MG/DL eGFR AMER. (test code 115 ML/MIN/1.73 = 72754) eGFR NON- AMER. (test 99 ML/MIN/1.73 code = 51532) CALC BUN/CREAT (test code = 23 RATIO [...] eGFR AMER. (test code 115 ML/MIN/1.73 = 57546) eGFR NON- AMER. (test 99 ML/MIN/1.73 code = 22193) CALC BUN/CREAT (test code = 23 RATIO [...] code 1.280 UIU/ML = 2821) CBC W/AUTO [id number] 00:00:00 Test Item Value Reference Range Interpretation [...] code = 1015) 346 K/UL CBC W/AUTO [id number] 00:00:00 Test Item Value Reference Range Interpretation [...] code = 1015) 346 K/UL CBC W/AUTO [id number] 00:00:00 Test Item Value Reference Range Interpretation [...] (test code = 1015) 346 K/UL HEMOGLOBIN [id number] 00:00:00 Test Item Value Reference Range Interpretation Comments HEMOGLOBIN A1c (test code = 86375) 5.9 % HEMOGLOBIN [id number] 00:00:00 Test Item Value Reference Range Interpretation Comments HEMOGLOBIN A1c (test code = 89514) 5.9 % HEMOGLOBIN [id number] 00:00:00 Test Item Value Reference Range Interpretation Comments HEMOGLOBIN A1c (test code = 46090) 5.9 % LIPID [id number] 00:00:00 Test Item Value Reference Range Interpretation Comments CHOLESTEROL (test code = 2210) 318 MG/DL TRIGLYCERIDES (test code = 2232) 263 MG/DL HDL CHOLESTEROL (test code = 2220) 51 MG/DL CALC LDL CHOL (test code = 2237) 214 MG/DL RISK RATIO LDL/HDL (test code = 4.20 RATIO 2238) LIPID [id number] 00:00:00 Test Item Value Reference Range Interpretation Comments CHOLESTEROL (test code = 2210) 318 MG/DL TRIGLYCERIDES (test code = 2232) 263 MG/DL HDL CHOLESTEROL (test code = 2220) 51 MG/DL CALC LDL CHOL (test code = 2237) 214 MG/DL RISK RATIO LDL/HDL (test code = 4.20 RATIO 2238) COMPREHENSIVE METABOLIC [id number] 00:00:00 Test Item Value Reference Range Interpretation Comments GLUCOSE (test code = 2217) 113 MG/DL BUN (test code = 2208) 18 MG/DL CREATININE (test code = 2214) 0.70 MG/DL eGFR AMER. (test code 111 ML/MIN/1.73 = 07074) eGFR NON- AMER. (test 96 ML/MIN/1.73 code = 30662) CALC BUN/CREAT (test code = 26 RATIO [...] code = 2219) 31 U/L COMPREHENSIVE METABOLIC [id number] 00:00:00 Test Item Value Reference Range Interpretation Comments GLUCOSE (test code = 2217) 113 MG/DL BUN (test code = 2208) 18 MG/DL CREATININE (test code = 2214) 0.70 MG/DL eGFR AMER. (test code 111 ML/MIN/1.73 = 99454) eGFR NON- AMER. (test 96 ML/MIN/1.73 code = 73772) CALC BUN/CREAT (test code = 26 RATIO [...] ALT (test code = 2219) 31 U/L [id number] 00:00:00 Test Item Value Reference Range Interpretation Comments TSH, THIRD GENERATION (test code 2.520 UIU/ML = 2821) [id number] 00:00:00 Test Item Value Reference Range Interpretation Comments TSH, THIRD GENERATION (test code 2.520 UIU/ML = 2821) [id number] 00:00:00 Test Item Value Reference Range Interpretation Comments TSH, THIRD GENERATION (test code 2.520 UIU/ML = 2821) CBC W/AUTO [id number] 00:00:00 Test Item Value Reference Range Interpretation [...] code = 1015) 346 K/UL CBC W/AUTO [id number] 00:00:00 Test Item Value Reference Range Interpretation [...] code = 1015) 346 K/UL CBC W/AUTO [id number] 00:00:00 Test Item Value Reference Range Interpretation [...] (test code = 1015) 346 K/UL HEMOGLOBIN [id number] 00:00:00 Test Item Value Reference Range Interpretation Comments HEMOGLOBIN A1c (test code = 18209) 5.9 % HEMOGLOBIN [id number] 00:00:00 Test Item Value Reference Range Interpretation Comments HEMOGLOBIN A1c (test code = 27296) 5.9 % HEMOGLOBIN [id number] 00:00:00 Test Item Value Reference Range Interpretation Comments HEMOGLOBIN A1c (test code = 45192) 5.9 % LIPID [id number] 00:00:00 Test Item Value Reference Range Interpretation Comments CHOLESTEROL (test code = 2210) 318 MG/DL TRIGLYCERIDES (test code = 2232) 263 MG/DL HDL CHOLESTEROL (test code = 2220) 51 MG/DL CALC LDL CHOL (test code = 2237) 214 MG/DL RISK RATIO LDL/HDL (test code = 4.20 RATIO 2238) LIPID [id number] 00:00:00 Test Item Value Reference Range Interpretation Comments CHOLESTEROL (test code = 2210) 318 MG/DL TRIGLYCERIDES (test code = 2232) 263 MG/DL HDL CHOLESTEROL (test code = 2220) 51 MG/DL CALC LDL CHOL (test code = 2237) 214 MG/DL RISK RATIO LDL/HDL (test code = 4.20 RATIO 2238) COMPREHENSIVE METABOLIC [id number] 00:00:00 Test Item Value Reference Range Interpretation Comments GLUCOSE (test code = 2217) 113 MG/DL BUN (test code = 2208) 18 MG/DL CREATININE (test code = 2214) 0.70 MG/DL eGFR AMER. (test code 111 ML/MIN/1.73 = 47207) eGFR NON- AMER. (test 96 ML/MIN/1.73 code = 20390) CALC BUN/CREAT (test code = 26 RATIO [...] code = 2219) 31 U/L COMPREHENSIVE METABOLIC [id number] 00:00:00 Test Item Value Reference Range Interpretation Comments GLUCOSE (test code = 2217) 113 MG/DL BUN (test code = 2208) 18 MG/DL CREATININE (test code = 2214) 0.70 MG/DL eGFR AMER. (test code 111 ML/MIN/1.73 = 50978) eGFR NON- AMER. (test 96 ML/MIN/1.73 code = 59642) CALC BUN/CREAT (test code = 26 RATIO [...] ALT (test code = 2219) 31 U/L [id number] 00:00:00 Test Item Value Reference Range Interpretation Comments TSH, THIRD GENERATION (test code 2.520 UIU/ML = 2821) [id number] 00:00:00 Test Item Value Reference Range Interpretation Comments TSH, THIRD GENERATION (test code 2.520 UIU/ML = 2821) [id number] 00:00:00 Test Item Value Reference Range Interpretation Comments TSH, THIRD GENERATION (test code 2.520 UIU/ML = 2821) CBC W/AUTO [id number] 00:00:00 Test Item Value Reference Range Interpretation [...] code = 1015) 346 K/UL CBC W/AUTO [id number] 00:00:00 Test Item Value Reference Range Interpretation [...] (test code = 1015) 346 K/UL HEMOGLOBIN [id number] 00:00:00 Test Item Value Reference Range Interpretation Comments HEMOGLOBIN A1c (test code = 89375) 5.9 % HEMOGLOBIN [id number] 00:00:00 Test Item Value Reference Range Interpretation Comments HEMOGLOBIN A1c (test code = 84575) 5.9 % LIPID [id number] 00:00:00 Test Item Value Reference Range Interpretation Comments CHOLESTEROL (test code = 2210) 318 MG/DL TRIGLYCERIDES (test code = 2232) 263 MG/DL HDL CHOLESTEROL (test code = 2220) 51 MG/DL CALC LDL CHOL (test code = 2237) 214 MG/DL RISK RATIO LDL/HDL (test code = 4.20 RATIO 2238) COMPREHENSIVE METABOLIC [id number] 00:00:00 Test Item Value Reference Range Interpretation Comments GLUCOSE (test code = 2217) 113 MG/DL BUN (test code = 2208) 18 MG/DL CREATININE (test code = 2214) 0.70 MG/DL eGFR AMER. (test code 111 ML/MIN/1.73 = 39384) eGFR NON- AMER. (test 96 ML/MIN/1.73 code = 36775) CALC BUN/CREAT (test code = 26 RATIO [...] ALT (test code = 2219) 31 U/L [id number] 00:00:00 Test Item Value Reference Range Interpretation Comments TSH, THIRD GENERATION (test code 2.520 UIU/ML = 2821) [id number] 00:00:00 Test Item Value Reference Range Interpretation Comments TSH, THIRD GENERATION (test code 2.520 UIU/ML = 2821) CBC W/AUTO [id number] 00:00:00 Test Item Value Reference Range Interpretation [...] code = 1015) 346 K/UL CBC W/AUTO [id number] 00:00:00 Test Item Value Reference Range Interpretation [...] code = 1015) 346 K/UL CBC W/AUTO [id number] 00:00:00 Test Item Value Reference Range Interpretation [...] (test code = 1015) 346 K/UL HEMOGLOBIN [id number] 00:00:00 Test Item Value Reference Range Interpretation Comments HEMOGLOBIN A1c (test code = 33267) 5.9 % HEMOGLOBIN [id number] 00:00:00 Test Item Value Reference Range Interpretation Comments HEMOGLOBIN A1c (test code = 99302) 5.9 % HEMOGLOBIN [id number] 00:00:00 Test Item Value Reference Range Interpretation Comments HEMOGLOBIN A1c (test code = 76867) 5.9 % LIPID [id number] 00:00:00 Test Item Value Reference Range Interpretation Comments CHOLESTEROL (test code = 2210) 318 MG/DL TRIGLYCERIDES (test code = 2232) 263 MG/DL HDL CHOLESTEROL (test code = 2220) 51 MG/DL CALC LDL CHOL (test code = 2237) 214 MG/DL RISK RATIO LDL/HDL (test code = 4.20 RATIO 2238) LIPID [id number] 00:00:00 Test Item Value Reference Range Interpretation Comments CHOLESTEROL (test code = 2210) 318 MG/DL TRIGLYCERIDES (test code = 2232) 263 MG/DL HDL CHOLESTEROL (test code = 2220) 51 MG/DL CALC LDL CHOL (test code = 2237) 214 MG/DL RISK RATIO LDL/HDL (test code = 4.20 RATIO 2238) COMPREHENSIVE METABOLIC [id number] 00:00:00 Test Item Value Reference Range Interpretation Comments GLUCOSE (test code = 2217) 113 MG/DL BUN (test code = 2208) 18 MG/DL CREATININE (test code = 2214) 0.70 MG/DL eGFR AMER. (test code 111 ML/MIN/1.73 = 45874) eGFR NON- AMER. (test 96 ML/MIN/1.73 code = 65702) CALC BUN/CREAT (test code = 26 RATIO [...] code = 2219) 31 U/L COMPREHENSIVE METABOLIC [id number] 00:00:00 Test Item Value Reference Range Interpretation Comments GLUCOSE (test code = 2217) 113 MG/DL BUN (test code = 2208) 18 MG/DL CREATININE (test code = 2214) 0.70 MG/DL eGFR AMER. (test code 111 ML/MIN/1.73 = 38839) eGFR NON- AMER. (test 96 ML/MIN/1.73 code = 95436) CALC BUN/CREAT (test code = 26 RATIO [...] ALT (test code = 2219) 31 U/L [id number] 00:00:00 Test Item Value Reference Range Interpretation Comments TSH, THIRD GENERATION (test code 2.520 UIU/ML = 2821) [id number] 00:00:00 Test Item Value Reference Range Interpretation Comments TSH, THIRD GENERATION (test code 2.520 UIU/ML = 2821) [id number] 00:00:00 Test Item Value Reference Range Interpretation Comments TSH, THIRD GENERATION (test code 2.520 UIU/ML = 2821) CULTURE, [id number] 00:00:00 Test Item Value Reference Range Interpretation Comments CULTURE, URINE (test SPECIMEN NUMBER: code = 90887) [id number] CULTURE, [id number] 00:00:00 Test Item Value Reference Range Interpretation Comments CULTURE, URINE (test SPECIMEN NUMBER: code = 07969) [id number] CULTURE, [id number] 00:00:00 Test Item Value Reference Range Interpretation Comments CULTURE, URINE (test SPECIMEN NUMBER: code = 16629) [id number] CULTURE, [id number] 00:00:00 Test Item Value Reference Range Interpretation Comments CULTURE, URINE (test SPECIMEN NUMBER: code = 18399) [id number] CULTURE, [id number] 00:00:00 Test Item Value Reference Range Interpretation Comments CULTURE, URINE (test SPECIMEN NUMBER: code = 83064) [id number] CULTURE, [id number] 00:00:00 Test Item Value Reference Range Interpretation Comments CULTURE, URINE (test SPECIMEN NUMBER: code = 72879) [id number] CULTURE, [id number] 00:00:00 Test Item Value Reference Range Interpretation Comments CULTURE, URINE (test SPECIMEN NUMBER: code = 77830) [id number] CULTURE, [id number] 00:00:00 Test Item Value Reference Range Interpretation Comments CULTURE, URINE (test SPECIMEN NUMBER: code = 94751) [id number] CULTURE, [id number] 00:00:00 Test Item Value Reference Range Interpretation Comments CULTURE, URINE (test SPECIMEN NUMBER: code = 74479) [id number] CULTURE, [id number] 00:00:00 Test Item Value Reference Range Interpretation Comments CULTURE, URINE (test SPECIMEN NUMBER: code = 08032) [id number] CULTURE, [id number] 00:00:00 Test Item Value Reference Range Interpretation Comments CULTURE, URINE (test SPECIMEN NUMBER: code = 16119) [id number] CULTURE, [id number] 00:00:00 Test Item Value Reference Range Interpretation Comments CULTURE, URINE (test SPECIMEN NUMBER: code = 32229) [id number] CULTURE, [id number] 00:00:00 Test Item Value Reference Range Interpretation Comments CULTURE, URINE (test SPECIMEN NUMBER: code = 70136) [id number] CULTURE, [id number] 00:00:00 Test Item Value Reference Range Interpretation Comments CULTURE, URINE (test SPECIMEN NUMBER: code = 29539) [id number] BASIC METABOLIC [id number] 00:00:00 Test Item Value Reference Range Interpretation Comments GLUCOSE (test code = 2217) 135 MG/DL BUN (test code = 2208) 25 MG/DL CREATININE (test code = 2214) 0.76 MG/DL eGFR AMER. (test code 101 ML/MIN/1.73 = 64184) eGFR NON- AMER. (test 87 ML/MIN/1.73 code = 84763) SODIUM (test code = 2231) 139 MEQ/L POTASSIUM (test code = 2228) 4.7 MEQ/L CHLORIDE (test code = 2215) 99 MEQ/L CARBON DIOXIDE (test code = 26 MEQ/L 2206) CALCIUM (test code = 2209) 9.4 MG/DL BASIC METABOLIC [id number] 00:00:00 Test Item Value Reference Range Interpretation Comments GLUCOSE (test code = 2217) 135 MG/DL BUN (test code = 2208) 25 MG/DL CREATININE (test code = 2214) 0.76 MG/DL eGFR AMER. (test code 101 ML/MIN/1.73 = 37963) eGFR NON- AMER. (test 87 ML/MIN/1.73 code = 46568) SODIUM (test code = 2231) 139 MEQ/L POTASSIUM (test code = 2228) 4.7 MEQ/L CHLORIDE (test code = 2215) 99 MEQ/L CARBON DIOXIDE (test code = 26 MEQ/L 2206) CALCIUM (test code = 2209) 9.4 MG/DL LIPID [id number] 00:00:00 Test Item Value Reference Range Interpretation Comments CHOLESTEROL (test code = 2210) 262 MG/DL TRIGLYCERIDES (test code = 2232) 300 MG/DL HDL CHOLESTEROL (test code = 2220) 36 MG/DL CALC LDL CHOL (test code = 2237) 166 MG/DL RISK RATIO LDL/HDL (test code = 4.61 RATIO 2238) LIPID [id number] 00:00:00 Test Item Value Reference Range Interpretation Comments CHOLESTEROL (test code = 2210) 262 MG/DL TRIGLYCERIDES (test code = 2232) 300 MG/DL HDL CHOLESTEROL (test code = 2220) 36 MG/DL CALC LDL CHOL (test code = 2237) 166 MG/DL RISK RATIO LDL/HDL (test code = 4.61 RATIO 2238) HEMOGLOBIN [id number] 00:00:00 Test Item Value Reference Range Interpretation Comments HEMOGLOBIN A1c (test code = 78222) 6.2 % HEMOGLOBIN [id number] 00:00:00 Test Item Value Reference Range Interpretation Comments HEMOGLOBIN A1c (test code = 18230) 6.2 % HEMOGLOBIN [id number] 00:00:00 Test Item Value Reference Range Interpretation Comments HEMOGLOBIN A1c (test code = 54649) 6.2 % [id number] 00:00:00 Test Item Value Reference Range Interpretation Comments TSH, THIRD GENERATION (test code 0.988 UIU/ML = 2821) [id number] 00:00:00 Test Item Value Reference Range Interpretation Comments TSH, THIRD GENERATION (test code 0.988 UIU/ML = 2821) [id number] 00:00:00 Test Item Value Reference Range Interpretation Comments TSH, THIRD GENERATION (test code 0.988 UIU/ML = 2821) BASIC METABOLIC [id number] 00:00:00 Test Item Value Reference Range Interpretation Comments GLUCOSE (test code = 2217) 135 MG/DL BUN (test code = 2208) 25 MG/DL CREATININE (test code = 2214) 0.76 MG/DL eGFR AMER. (test code 101 ML/MIN/1.73 = 90730) eGFR NON- AMER. (test 87 ML/MIN/1.73 code = 44840) SODIUM (test code = 2231) 139 MEQ/L POTASSIUM (test code = 2228) 4.7 MEQ/L CHLORIDE (test code = 2215) 99 MEQ/L CARBON DIOXIDE (test code = 26 MEQ/L 2206) CALCIUM (test code = 2209) 9.4 MG/DL BASIC METABOLIC [id number] 00:00:00 Test Item Value Reference Range Interpretation Comments GLUCOSE (test code = 2217) 135 MG/DL BUN (test code = 2208) 25 MG/DL CREATININE (test code = 2214) 0.76 MG/DL eGFR AMER. (test code 101 ML/MIN/1.73 = 98352) eGFR NON- AMER. (test 87 ML/MIN/1.73 code = 01687) SODIUM (test code = 2231) 139 MEQ/L POTASSIUM (test code = 2228) 4.7 MEQ/L CHLORIDE (test code = 2215) 99 MEQ/L CARBON DIOXIDE (test code = 26 MEQ/L 2206) CALCIUM (test code = 2209) 9.4 MG/DL LIPID [id number] 00:00:00 Test Item Value Reference Range Interpretation Comments CHOLESTEROL (test code = 2210) 262 MG/DL TRIGLYCERIDES (test code = 2232) 300 MG/DL HDL CHOLESTEROL (test code = 2220) 36 MG/DL CALC LDL CHOL (test code = 2237) 166 MG/DL RISK RATIO LDL/HDL (test code = 4.61 RATIO 2238) LIPID [id number] 00:00:00 Test Item Value Reference Range Interpretation Comments CHOLESTEROL (test code = 2210) 262 MG/DL TRIGLYCERIDES (test code = 2232) 300 MG/DL HDL CHOLESTEROL (test code = 2220) 36 MG/DL CALC LDL CHOL (test code = 2237) 166 MG/DL RISK RATIO LDL/HDL (test code = 4.61 RATIO 2238) HEMOGLOBIN [id number] 00:00:00 Test Item Value Reference Range Interpretation Comments HEMOGLOBIN A1c (test code = 45566) 6.2 % HEMOGLOBIN [id number] 00:00:00 Test Item Value Reference Range Interpretation Comments HEMOGLOBIN A1c (test code = 97281) 6.2 % HEMOGLOBIN [id number] 00:00:00 Test Item Value Reference Range Interpretation Comments HEMOGLOBIN A1c (test code = 45936) 6.2 % [id number] 00:00:00 Test Item Value Reference Range Interpretation Comments TSH, THIRD GENERATION (test code 0.988 UIU/ML = 2821) [id number] 00:00:00 Test Item Value Reference Range Interpretation Comments TSH, THIRD GENERATION (test code 0.988 UIU/ML = 2821) [id number] 00:00:00 Test Item Value Reference Range Interpretation Comments TSH, THIRD GENERATION (test code 0.988 UIU/ML = 2821) BASIC METABOLIC [id number] 00:00:00 Test Item Value Reference Range Interpretation Comments GLUCOSE (test code = 2217) 135 MG/DL BUN (test code = 2208) 25 MG/DL CREATININE (test code = 2214) 0.76 MG/DL eGFR AMER. (test code 101 ML/MIN/1.73 = 37407) eGFR NON- AMER. (test 87 ML/MIN/1.73 code = 13778) SODIUM (test code = 2231) 139 MEQ/L POTASSIUM (test code = 2228) 4.7 MEQ/L CHLORIDE (test code = 2215) 99 MEQ/L CARBON DIOXIDE (test code = 26 MEQ/L 220) CALCIUM (test code = 2209) 9.4 MG/DL LIPID [id number] 00:00:00 Test Item Value Reference Range Interpretation Comments CHOLESTEROL (test code = 2210) 262 MG/DL TRIGLYCERIDES (test code = 2232) 300 MG/DL HDL CHOLESTEROL (test code = 2220) 36 MG/DL CALC LDL CHOL (test code = 2237) 166 MG/DL RISK RATIO LDL/HDL (test code = 4.61 RATIO 2238) HEMOGLOBIN [id number] 00:00:00 Test Item Value Reference Range Interpretation Comments HEMOGLOBIN A1c (test code = 08791) 6.2 % HEMOGLOBIN [id number] 00:00:00 Test Item Value Reference Range Interpretation Comments HEMOGLOBIN A1c (test code = 23926) 6.2 % [id number] 00:00:00 Test Item Value Reference Range Interpretation Comments TSH, THIRD GENERATION (test code 0.988 UIU/ML = 2821) [id number] 00:00:00 Test Item Value Reference Range Interpretation Comments TSH, THIRD GENERATION (test code 0.988 UIU/ML = 2821) BASIC METABOLIC [id number] 00:00:00 Test Item Value Reference Range Interpretation Comments GLUCOSE (test code = 2217) 135 MG/DL BUN (test code = 2208) 25 MG/DL CREATININE (test code = 2214) 0.76 MG/DL eGFR AMER. (test code 101 ML/MIN/1.73 = 48076) eGFR NON- AMER. (test 87 ML/MIN/1.73 code = 19284) SODIUM (test code = 2231) 139 MEQ/L POTASSIUM (test code = 2228) 4.7 MEQ/L CHLORIDE (test code = 2215) 99 MEQ/L CARBON DIOXIDE (test code = 26 MEQ/L 2206) CALCIUM (test code = 2209) 9.4 MG/DL BASIC METABOLIC [id number] 00:00:00 Test Item Value Reference Range Interpretation Comments GLUCOSE (test code = 2217) 135 MG/DL BUN (test code = 2208) 25 MG/DL CREATININE (test code = 2214) 0.76 MG/DL eGFR AMER. (test code 101 ML/MIN/1.73 = 12055) eGFR NON- AMER. (test 87 ML/MIN/1.73 code = 37493) SODIUM (test code = 2231) 139 MEQ/L POTASSIUM (test code = 2228) 4.7 MEQ/L CHLORIDE (test code = 2215) 99 MEQ/L CARBON DIOXIDE (test code = 26 MEQ/L 2206) CALCIUM (test code = 2209) 9.4 MG/DL LIPID [id number] 00:00:00 Test Item Value Reference Range Interpretation Comments CHOLESTEROL (test code = 2210) 262 MG/DL TRIGLYCERIDES (test code = 2232) 300 MG/DL HDL CHOLESTEROL (test code = 2220) 36 MG/DL CALC LDL CHOL (test code = 2237) 166 MG/DL RISK RATIO LDL/HDL (test code = 4.61 RATIO 2238) LIPID [id number] 00:00:00 Test Item Value Reference Range Interpretation Comments CHOLESTEROL (test code = 2210) 262 MG/DL TRIGLYCERIDES (test code = 2232) 300 MG/DL HDL CHOLESTEROL (test code = 2220) 36 MG/DL CALC LDL CHOL (test code = 2237) 166 MG/DL RISK RATIO LDL/HDL (test code = 4.61 RATIO 2238) HEMOGLOBIN [id number] 00:00:00 Test Item Value Reference Range Interpretation Comments HEMOGLOBIN A1c (test code = 99615) 6.2 % HEMOGLOBIN [id number] 00:00:00 Test Item Value Reference Range Interpretation Comments HEMOGLOBIN A1c (test code = 61257) 6.2 % HEMOGLOBIN [id number] 00:00:00 Test Item Value Reference Range Interpretation Comments HEMOGLOBIN A1c (test code = 95143) 6.2 % [id number] 00:00:00 Test Item Value Reference Range Interpretation Comments TSH, THIRD GENERATION (test code 0.988 UIU/ML = 2821) [id number] 00:00:00 Test Item Value Reference Range Interpretation Comments TSH, THIRD GENERATION (test code 0.988 UIU/ML = 2821) [id number] 00:00:00 Test Item Value Reference Range Interpretation Comments TSH, THIRD GENERATION (test code 0.988 UIU/ML = 2821) COMPREHENSIVE METABOLIC [id number] 00:00:00 Test Item Value Reference Range Interpretation Comments GLUCOSE (test code = 2217) 109 MG/DL BUN (test code = 2208) 25 MG/DL CREATININE (test code = 2214) 0.78 MG/DL eGFR AMER. (test code 98 ML/MIN/1.73 = 99428) eGFR NON- AMER. (test 84 ML/MIN/1.73 code = 57018) CALC BUN/CREAT (test code = 32 RATIO [...] code = 2219) 25 U/L COMPREHENSIVE METABOLIC [id number] 00:00:00 Test Item Value Reference Range Interpretation Comments GLUCOSE (test code = 2217) 109 MG/DL BUN (test code = 2208) 25 MG/DL CREATININE (test code = 2214) 0.78 MG/DL eGFR AMER. (test code 98 ML/MIN/1.73 = 17867) eGFR NON- AMER. (test 84 ML/MIN/1.73 code = 04695) CALC BUN/CREAT (test code = 32 RATIO [...] (test code = 2219) 25 U/L LIPID [id number] 00:00:00 Test Item Value Reference Range Interpretation Comments CHOLESTEROL (test code = 2210) 295 MG/DL TRIGLYCERIDES (test code = 2232) 218 MG/DL HDL CHOLESTEROL (test code = 2220) 46 MG/DL CALC LDL CHOL (test code = 2237) 205 MG/DL RISK RATIO LDL/HDL (test code = 4.47 RATIO 2238) LIPID [id number] 00:00:00 Test Item Value Reference Range Interpretation Comments CHOLESTEROL (test code = 2210) 295 MG/DL TRIGLYCERIDES (test code = 2232) 218 MG/DL HDL CHOLESTEROL (test code = 2220) 46 MG/DL CALC LDL CHOL (test code = 2237) 205 MG/DL RISK RATIO LDL/HDL (test code = 4.47 RATIO 2238) HEMOGLOBIN [id number] 00:00:00 Test Item Value Reference Range Interpretation Comments HEMOGLOBIN A1c (test code = 54269) 7.0 % HEMOGLOBIN [id number] 00:00:00 Test Item Value Reference Range Interpretation Comments HEMOGLOBIN A1c (test code = 91926) 7.0 % HEMOGLOBIN [id number] 00:00:00 Test Item Value Reference Range Interpretation Comments HEMOGLOBIN A1c (test code = 85561) 7.0 % [id number] 00:00:00 Test Item Value Reference Range Interpretation Comments TSH, THIRD GENERATION (test code 0.565 UIU/ML = 2821) [id number] 00:00:00 Test Item Value Reference Range Interpretation Comments TSH, THIRD GENERATION (test code 0.565 UIU/ML = 2821) [id number] 00:00:00 Test Item Value Reference Range Interpretation Comments TSH, THIRD GENERATION (test code 0.565 UIU/ML = 2821) COMPREHENSIVE METABOLIC [id number] 00:00:00 Test Item Value Reference Range Interpretation Comments GLUCOSE (test code = 2217) 109 MG/DL BUN (test code = 2208) 25 MG/DL CREATININE (test code = 2214) 0.78 MG/DL eGFR AMER. (test code 98 ML/MIN/1.73 = 33362) eGFR NON- AMER. (test 84 ML/MIN/1.73 code = 09045) CALC BUN/CREAT (test code = 32 RATIO [...] code = 2219) 25 U/L COMPREHENSIVE METABOLIC [id number] 00:00:00 Test Item Value Reference Range Interpretation Comments GLUCOSE (test code = 2217) 109 MG/DL BUN (test code = 2208) 25 MG/DL CREATININE (test code = 2214) 0.78 MG/DL eGFR AMER. (test code 98 ML/MIN/1.73 = 89004) eGFR NON- AMER. (test 84 ML/MIN/1.73 code = 25934) CALC BUN/CREAT (test code = 32 RATIO [...] (test code = 2219) 25 U/L LIPID [id number] 00:00:00 Test Item Value Reference Range Interpretation Comments CHOLESTEROL (test code = 2210) 295 MG/DL TRIGLYCERIDES (test code = 2232) 218 MG/DL HDL CHOLESTEROL (test code = 2220) 46 MG/DL CALC LDL CHOL (test code = 2237) 205 MG/DL RISK RATIO LDL/HDL (test code = 4.47 RATIO 2238) LIPID [id number] 00:00:00 Test Item Value Reference Range Interpretation Comments CHOLESTEROL (test code = 2210) 295 MG/DL TRIGLYCERIDES (test code = 2232) 218 MG/DL HDL CHOLESTEROL (test code = 2220) 46 MG/DL CALC LDL CHOL (test code = 2237) 205 MG/DL RISK RATIO LDL/HDL (test code = 4.47 RATIO 2238) HEMOGLOBIN [id number] 00:00:00 Test Item Value Reference Range Interpretation Comments HEMOGLOBIN A1c (test code = 89175) 7.0 % HEMOGLOBIN [id number] 00:00:00 Test Item Value Reference Range Interpretation Comments HEMOGLOBIN A1c (test code = 66465) 7.0 % HEMOGLOBIN [id number] 00:00:00 Test Item Value Reference Range Interpretation Comments HEMOGLOBIN A1c (test code = 71956) 7.0 % [id number] 00:00:00 Test Item Value Reference Range Interpretation Comments TSH, THIRD GENERATION (test code 0.565 UIU/ML = 2821) [id number] 00:00:00 Test Item Value Reference Range Interpretation Comments TSH, THIRD GENERATION (test code 0.565 UIU/ML = 2821) [id number] 00:00:00 Test Item Value Reference Range Interpretation Comments TSH, THIRD GENERATION (test code 0.565 UIU/ML = 2821) COMPREHENSIVE METABOLIC [id number] 00:00:00 Test Item Value Reference Range Interpretation Comments GLUCOSE (test code = 2217) 109 MG/DL BUN (test code = 2208) 25 MG/DL CREATININE (test code = 2214) 0.78 MG/DL eGFR AMER. (test code 98 ML/MIN/1.73 = 34503) eGFR NON- AMER. (test 84 ML/MIN/1.73 code = 11378) CALC BUN/CREAT (test code = 32 RATIO [...] (test code = 2219) 25 U/L LIPID [id number] 00:00:00 Test Item Value Reference Range Interpretation Comments CHOLESTEROL (test code = 2210) 295 MG/DL TRIGLYCERIDES (test code = 2232) 218 MG/DL HDL CHOLESTEROL (test code = 2220) 46 MG/DL CALC LDL CHOL (test code = 2237) 205 MG/DL RISK RATIO LDL/HDL (test code = 4.47 RATIO 2238) HEMOGLOBIN [id number] 00:00:00 Test Item Value Reference Range Interpretation Comments HEMOGLOBIN A1c (test code = 17107) 7.0 % HEMOGLOBIN [id number] 00:00:00 Test Item Value Reference Range Interpretation Comments HEMOGLOBIN A1c (test code = 72470) 7.0 % [id number] 00:00:00 Test Item Value Reference Range Interpretation Comments TSH, THIRD GENERATION (test code 0.565 UIU/ML = 2821) [id number] 00:00:00 Test Item Value Reference Range Interpretation Comments TSH, THIRD GENERATION (test code 0.565 UIU/ML = 2821) COMPREHENSIVE METABOLIC [id number] 00:00:00 Test Item Value Reference Range Interpretation Comments GLUCOSE (test code = 2217) 109 MG/DL BUN (test code = 2208) 25 MG/DL CREATININE (test code = 2214) 0.78 MG/DL eGFR AMER. (test code 98 ML/MIN/1.73 = 82436) eGFR NON- AMER. (test 84 ML/MIN/1.73 code = 25684) CALC BUN/CREAT (test code = 32 RATIO [...] code = 2219) 25 U/L COMPREHENSIVE METABOLIC [id number] 00:00:00 Test Item Value Reference Range Interpretation Comments GLUCOSE (test code = 2217) 109 MG/DL BUN (test code = 2208) 25 MG/DL CREATININE (test code = 2214) 0.78 MG/DL eGFR AMER. (test code 98 ML/MIN/1.73 = 13329) eGFR NON- AMER. (test 84 ML/MIN/1.73 code = 15554) CALC BUN/CREAT (test code = 32 RATIO [...] (test code = 2219) 25 U/L LIPID [id number] 00:00:00 Test Item Value Reference Range Interpretation Comments CHOLESTEROL (test code = 2210) 295 MG/DL TRIGLYCERIDES (test code = 2232) 218 MG/DL HDL CHOLESTEROL (test code = 2220) 46 MG/DL CALC LDL CHOL (test code = 2237) 205 MG/DL RISK RATIO LDL/HDL (test code = 4.47 RATIO 2238) LIPID [id number] 00:00:00 Test Item Value Reference Range Interpretation Comments CHOLESTEROL (test code = 2210) 295 MG/DL TRIGLYCERIDES (test code = 2232) 218 MG/DL HDL CHOLESTEROL (test code = 2220) 46 MG/DL CALC LDL CHOL (test code = 2237) 205 MG/DL RISK RATIO LDL/HDL (test code = 4.47 RATIO 2238) HEMOGLOBIN [id number] 00:00:00 Test Item Value Reference Range Interpretation Comments HEMOGLOBIN A1c (test code = 82842) 7.0 % HEMOGLOBIN [id number] 00:00:00 Test Item Value Reference Range Interpretation Comments HEMOGLOBIN A1c (test code = 48400) 7.0 % HEMOGLOBIN [id number] 00:00:00 Test Item Value Reference Range Interpretation Comments HEMOGLOBIN A1c (test code = 41115) 7.0 % [id number] 00:00:00 Test Item Value Reference Range Interpretation Comments TSH, THIRD GENERATION (test code 0.565 UIU/ML = 2821) [id number] 00:00:00 Test Item Value Reference Range Interpretation Comments TSH, THIRD GENERATION (test code 0.565 UIU/ML = 2821) [id number] 00:00:00 Test Item Value Reference Range Interpretation Comments TSH, THIRD GENERATION (test code 0.565 UIU/ML = 2821) [id number] 00:00:00 Test Item Value Reference Range Interpretation Comments TSH, THIRD GENERATION (test code 0.379 UIU/ML = 2821) [id number] 00:00:00 Test Item Value Reference Range Interpretation Comments TSH, THIRD GENERATION (test code 0.379 UIU/ML = 2821) [id number] 00:00:00 Test Item Value Reference Range Interpretation Comments TSH, THIRD GENERATION (test code 0.379 UIU/ML = 2821) [id number] 00:00:00 Test Item Value Reference Range Interpretation Comments TSH, THIRD GENERATION (test code 0.379 UIU/ML = 2821) [id number] 00:00:00 Test Item Value Reference Range Interpretation Comments TSH, THIRD GENERATION (test code 0.379 UIU/ML = 2821) [id number] 00:00:00 Test Item Value Reference Range Interpretation Comments TSH, THIRD GENERATION (test code 0.379 UIU/ML = 2821) [id number] 00:00:00 Test Item Value Reference Range Interpretation Comments TSH, THIRD GENERATION (test code 0.379 UIU/ML = 2821) [id number] 00:00:00 Test Item Value Reference Range Interpretation Comments TSH, THIRD GENERATION (test code 0.379 UIU/ML = 2821) [id number] 00:00:00 Test Item Value Reference Range Interpretation Comments TSH, THIRD GENERATION (test code 0.379 UIU/ML = 2821) [id number] 00:00:00 Test Item Value Reference Range Interpretation Comments TSH, THIRD GENERATION (test code 0.379 UIU/ML = 2821) [id number] 00:00:00 Test Item Value Reference Range Interpretation Comments TSH, THIRD GENERATION (test code 0.379 UIU/ML = 2821) CULTURE, [id number] 00:00:00 Test Item Value Reference Range Interpretation Comments CULTURE, URINE (test SPECIMEN NUMBER: code = 02799) [id number] CULTURE, [id number] 00:00:00 Test Item Value Reference Range Interpretation Comments CULTURE, URINE (test SPECIMEN NUMBER: code = 35107) [id number] CULTURE, [id number] 00:00:00 Test Item Value Reference Range Interpretation Comments CULTURE, URINE (test SPECIMEN NUMBER: code = 22184) [id number] CULTURE, [id number] 00:00:00 Test Item Value Reference Range Interpretation Comments CULTURE, URINE (test SPECIMEN NUMBER: code = 66630) [id number] CULTURE, [id number] 00:00:00 Test Item Value Reference Range Interpretation Comments CULTURE, URINE (test SPECIMEN NUMBER: code = 61020) [id number] CULTURE, [id number] 00:00:00 Test Item Value Reference Range Interpretation Comments CULTURE, URINE (test SPECIMEN NUMBER: code = 58153) [id number] CULTURE, [id number] 00:00:00 Test Item Value Reference Range Interpretation Comments CULTURE, URINE (test SPECIMEN NUMBER: code = 74322) [id number] COMPREHENSIVE METABOLIC [id number] 00:00:00 Test Item Value Reference Range Interpretation Comments GLUCOSE (test code = 2217) 128 MG/DL BUN (test code = 2208) 26 MG/DL CREATININE (test code = 2214) 0.92 MG/DL eGFR AMER. (test code 81 ML/MIN/1.73 = 69754) eGFR NON- AMER. (test 70 ML/MIN/1.73 code = 38035) CALC BUN/CREAT (test code = 28 RATIO [...] code = 2219) 29 U/L COMPREHENSIVE METABOLIC [id number] 00:00:00 Test Item Value Reference Range Interpretation Comments GLUCOSE (test code = 2217) 128 MG/DL BUN (test code = 2208) 26 MG/DL CREATININE (test code = 2214) 0.92 MG/DL eGFR AMER. (test code 81 ML/MIN/1.73 = 39974) eGFR NON- AMER. (test 70 ML/MIN/1.73 code = 50095) CALC BUN/CREAT (test code = 28 RATIO [...] code = 2219) 29 U/L ACUTE HEPATITIS [id number] 00:00:00 Test Item Value Reference Range Interpretation Comments HEPATITIS A IgM (test code = NON-REACTIVE 73145) HEPATITIS B CORE IgM (test code NON-REACTIVE = 4644) HEPATITIS B SURF AG (test code = NON-REACTIVE 2739) HEPATITIS C ANTIBODY (test code NON-REACTIVE = 4675) INTERPRETATION HEPATITIS A: (NOTE) (test code = 2552) INTERPRETATION HEPATITIS B: (NOTE) (test code = 19653) INTERPRETATION HEPATITIS C: (NOTE) (test code = 21452) ACUTE HEPATITIS [id number] 00:00:00 Test Item Value Reference Range Interpretation Comments HEPATITIS A IgM (test code = NON-REACTIVE 34048) HEPATITIS B CORE IgM (test code NON-REACTIVE = 4644) HEPATITIS B SURF AG (test code = NON-REACTIVE 2739) HEPATITIS C ANTIBODY (test code NON-REACTIVE = 4675) INTERPRETATION HEPATITIS A: (NOTE) (test code = 2552) INTERPRETATION HEPATITIS B: (NOTE) (test code = 09617) INTERPRETATION HEPATITIS C: (NOTE) (test code = 93199) [id number] 00:00:00 Test Item Value Reference Range Interpretation Comments AMYLASE (test code = 2205) 32 U/L [id number] 00:00:00 Test Item Value Reference Range Interpretation Comments AMYLASE (test code = 2205) 32 U/L [id number] 00:00:00 Test Item Value Reference Range Interpretation Comments LIPASE (test code = 2057) 22 U/L [id number] 00:00:00 Test Item Value Reference Range Interpretation Comments LIPASE (test code = 2057) 22 U/L [id number] 00:00:00 Test Item Value Reference Range Interpretation Comments LIPASE (test code = 2057) 22 U/L COMPREHENSIVE METABOLIC [id number] 00:00:00 Test Item Value Reference Range Interpretation Comments GLUCOSE (test code = 2217) 128 MG/DL BUN (test code = 2208) 26 MG/DL CREATININE (test code = 2214) 0.92 MG/DL eGFR AMER. (test code 81 ML/MIN/1.73 = 54309) eGFR NON- AMER. (test 70 ML/MIN/1.73 code = 94098) CALC BUN/CREAT (test code = 28 RATIO [...] code = 2219) 29 U/L COMPREHENSIVE METABOLIC [id number] 00:00:00 Test Item Value Reference Range Interpretation Comments GLUCOSE (test code = 2217) 128 MG/DL BUN (test code = 2208) 26 MG/DL CREATININE (test code = 2214) 0.92 MG/DL eGFR AMER. (test code 81 ML/MIN/1.73 = 73902) eGFR NON- AMER. (test 70 ML/MIN/1.73 code = 62727) CALC BUN/CREAT (test code = 28 RATIO [...] code = 2219) 29 U/L ACUTE HEPATITIS [id number] 00:00:00 Test Item Value Reference Range Interpretation Comments HEPATITIS A IgM (test code = NON-REACTIVE 52852) HEPATITIS B CORE IgM (test code NON-REACTIVE = 4644) HEPATITIS B SURF AG (test code = NON-REACTIVE 2739) HEPATITIS C ANTIBODY (test code NON-REACTIVE = 4675) INTERPRETATION HEPATITIS A: (NOTE) (test code = 2552) INTERPRETATION HEPATITIS B: (NOTE) (test code = 15178) INTERPRETATION HEPATITIS C: (NOTE) (test code = 68796) ACUTE HEPATITIS [id number] 00:00:00 Test Item Value Reference Range Interpretation Comments HEPATITIS A IgM (test code = NON-REACTIVE 88906) HEPATITIS B CORE IgM (test code NON-REACTIVE = 4644) HEPATITIS B SURF AG (test code = NON-REACTIVE 2739) HEPATITIS C ANTIBODY (test code NON-REACTIVE = 4675) INTERPRETATION HEPATITIS A: (NOTE) (test code = 2552) INTERPRETATION HEPATITIS B: (NOTE) (test code = 60564) INTERPRETATION HEPATITIS C: (NOTE) (test code = 47535) [id number] 00:00:00 Test Item Value Reference Range Interpretation Comments AMYLASE (test code = 2205) 32 U/L [id number] 00:00:00 Test Item Value Reference Range Interpretation Comments AMYLASE (test code = 2205) 32 U/L [id number] 00:00:00 Test Item Value Reference Range Interpretation Comments LIPASE (test code = 2057) 22 U/L [id number] 00:00:00 Test Item Value Reference Range Interpretation Comments LIPASE (test code = 2057) 22 U/L [id number] 00:00:00 Test Item Value Reference Range Interpretation Comments LIPASE (test code = 2057) 22 U/L COMPREHENSIVE METABOLIC [id number] 00:00:00 Test Item Value Reference Range Interpretation Comments GLUCOSE (test code = 2217) 128 MG/DL BUN (test code = 2208) 26 MG/DL CREATININE (test code = 2214) 0.92 MG/DL eGFR AMER. (test code 81 ML/MIN/1.73 = 39999) eGFR NON- AMER. (test 70 ML/MIN/1.73 code = 66595) CALC BUN/CREAT (test code = 28 RATIO [...] code = 2219) 29 U/L ACUTE HEPATITIS [id number] 00:00:00 Test Item Value Reference Range Interpretation Comments HEPATITIS A IgM (test code = NON-REACTIVE 69386) HEPATITIS B CORE IgM (test code NON-REACTIVE = 8344) HEPATITIS B SURF AG (test code = NON-REACTIVE 8071) HEPATITIS C ANTIBODY (test code NON-REACTIVE = 2933) INTERPRETATION HEPATITIS A: (NOTE) (test code = 2552) INTERPRETATION HEPATITIS B: (NOTE) (test code = 05123) INTERPRETATION HEPATITIS C: (NOTE) (test code = 31470) [id number] 00:00:00 Test Item Value Reference Range Interpretation Comments AMYLASE (test code = 2205) 32 U/L [id number] 00:00:00 Test Item Value Reference Range Interpretation Comments LIPASE (test code = 205) 22 U/L [id number] 00:00:00 Test Item Value Reference Range Interpretation Comments LIPASE (test code = 205) 22 U/L COMPREHENSIVE METABOLIC [id number] 00:00:00 Test Item Value Reference Range Interpretation Comments GLUCOSE (test code = 2217) 128 MG/DL BUN (test code = 2208) 26 MG/DL CREATININE (test code = 2214) 0.92 MG/DL eGFR AMER. (test code 81 ML/MIN/1.73 = 35970) eGFR NON- AMER. (test 70 ML/MIN/1.73 code = 64247) CALC BUN/CREAT (test code = 28 RATIO [...] code = 2219) 29 U/L COMPREHENSIVE METABOLIC [id number] 00:00:00 Test Item Value Reference Range Interpretation Comments GLUCOSE (test code = 2217) 128 MG/DL BUN (test code = 2208) 26 MG/DL CREATININE (test code = 2214) 0.92 MG/DL eGFR AMER. (test code 81 ML/MIN/1.73 = 17357) eGFR NON- AMER. (test 70 ML/MIN/1.73 code = 33793) CALC BUN/CREAT (test code = 28 RATIO [...] code = 2219) 29 U/L ACUTE HEPATITIS [id number] 00:00:00 Test Item Value Reference Range Interpretation Comments HEPATITIS A IgM (test code = NON-REACTIVE 13995) HEPATITIS B CORE IgM (test code NON-REACTIVE = 4644) HEPATITIS B SURF AG (test code = NON-REACTIVE 2739) HEPATITIS C ANTIBODY (test code NON-REACTIVE = 4675) INTERPRETATION HEPATITIS A: (NOTE) (test code = 2552) INTERPRETATION HEPATITIS B: (NOTE) (test code = 70442) INTERPRETATION HEPATITIS C: (NOTE) (test code = 15541) ACUTE HEPATITIS [id number] 00:00:00 Test Item Value Reference Range Interpretation Comments HEPATITIS A IgM (test code = NON-REACTIVE 39696) HEPATITIS B CORE IgM (test code NON-REACTIVE = 4644) HEPATITIS B SURF AG (test code = NON-REACTIVE 2739) HEPATITIS C ANTIBODY (test code NON-REACTIVE = 4675) INTERPRETATION HEPATITIS A: (NOTE) (test code = 2552) INTERPRETATION HEPATITIS B: (NOTE) (test code = 73410) INTERPRETATION HEPATITIS C: (NOTE) (test code = 08832) [id number] 00:00:00 Test Item Value Reference Range Interpretation Comments AMYLASE (test code = 2205) 32 U/L [id number] 00:00:00 Test Item Value Reference Range Interpretation Comments AMYLASE (test code = 2205) 32 U/L [id number] 00:00:00 Test Item Value Reference Range Interpretation Comments LIPASE (test code = 2057) 22 U/L [id number] 00:00:00 Test Item Value Reference Range Interpretation Comments LIPASE (test code = 2057) 22 U/L [id number] 00:00:00 Test Item Value Reference Range Interpretation Comments LIPASE (test code = 2057) 22 U/L [id number] 00:00:00 Test Item Value Reference Range Interpretation Comments TSH, THIRD GENERATION (test code 4.890 UIU/ML = 2821) [id number] 00:00:00 Test Item Value Reference Range Interpretation Comments TSH, THIRD GENERATION (test code 4.890 UIU/ML = 2821) [id number] 00:00:00 Test Item Value Reference Range Interpretation Comments TSH, THIRD GENERATION (test code 4.890 UIU/ML = 2821) COMPREHENSIVE METABOLIC [id number] 00:00:00 Test Item Value Reference Range Interpretation Comments GLUCOSE (test code = 2217) 121 MG/DL BUN (test code = 2208) 40 MG/DL CREATININE (test code = 2214) 1.48 MG/DL eGFR AMER. (test code 45 ML/MIN/1.73 = 28825) eGFR NON- AMER. (test 39 ML/MIN/1.73 code = 00901) CALC BUN/CREAT (test code = 27 RATIO [...] code = 2219) 20 U/L COMPREHENSIVE METABOLIC [id number] 00:00:00 Test Item Value Reference Range Interpretation Comments GLUCOSE (test code = 2217) 121 MG/DL BUN (test code = 2208) 40 MG/DL CREATININE (test code = 2214) 1.48 MG/DL eGFR AMER. (test code 45 ML/MIN/1.73 = 10876) eGFR NON- AMER. (test 39 ML/MIN/1.73 code = 37225) CALC BUN/CREAT (test code = 27 RATIO [...] ALT (test code = 2219) 20 U/L [id number] 00:00:00 Test Item Value Reference Range Interpretation Comments TSH, THIRD GENERATION (test code 4.890 UIU/ML = 2821) [id number] 00:00:00 Test Item Value Reference Range Interpretation Comments TSH, THIRD GENERATION (test code 4.890 UIU/ML = 2821) [id number] 00:00:00 Test Item Value Reference Range Interpretation Comments TSH, THIRD GENERATION (test code 4.890 UIU/ML = 2821) COMPREHENSIVE METABOLIC [id number] 00:00:00 Test Item Value Reference Range Interpretation Comments GLUCOSE (test code = 2217) 121 MG/DL BUN (test code = 2208) 40 MG/DL CREATININE (test code = 2214) 1.48 MG/DL eGFR AMER. (test code 45 ML/MIN/1.73 = 91024) eGFR NON- AMER. (test 39 ML/MIN/1.73 code = 92047) CALC BUN/CREAT (test code = 27 RATIO [...] code = 2219) 20 U/L COMPREHENSIVE METABOLIC [id number] 00:00:00 Test Item Value Reference Range Interpretation Comments GLUCOSE (test code = 2217) 121 MG/DL BUN (test code = 2208) 40 MG/DL CREATININE (test code = 2214) 1.48 MG/DL eGFR AMER. (test code 45 ML/MIN/1.73 = 74747) eGFR NON- AMER. (test 39 ML/MIN/1.73 code = 62013) CALC BUN/CREAT (test code = 27 RATIO [...] ALT (test code = 2219) 20 U/L [id number] 00:00:00 Test Item Value Reference Range Interpretation Comments TSH, THIRD GENERATION (test code 4.890 UIU/ML = 2821) [id number] 00:00:00 Test Item Value Reference Range Interpretation Comments TSH, THIRD GENERATION (test code 4.890 UIU/ML = 2821) COMPREHENSIVE METABOLIC [id number] 00:00:00 Test Item Value Reference Range Interpretation Comments GLUCOSE (test code = 2217) 121 MG/DL BUN (test code = 2208) 40 MG/DL CREATININE (test code = 2214) 1.48 MG/DL eGFR AMER. (test code 45 ML/MIN/1.73 = 99026) eGFR NON- AMER. (test 39 ML/MIN/1.73 code = 23819) CALC BUN/CREAT (test code = 27 RATIO [...] ALT (test code = 2219) 20 U/L [id number] 00:00:00 Test Item Value Reference Range Interpretation Comments TSH, THIRD GENERATION (test code 4.890 UIU/ML = 2821) [id number] 00:00:00 Test Item Value Reference Range Interpretation Comments TSH, THIRD GENERATION (test code 4.890 UIU/ML = 2821) [id number] 00:00:00 Test Item Value Reference Range Interpretation Comments TSH, THIRD GENERATION (test code 4.890 UIU/ML = 2821) COMPREHENSIVE METABOLIC [id number] 00:00:00 Test Item Value Reference Range Interpretation Comments GLUCOSE (test code = 2217) 121 MG/DL BUN (test code = 2208) 40 MG/DL CREATININE (test code = 2214) 1.48 MG/DL eGFR AMER. (test code 45 ML/MIN/1.73 = 43047) eGFR NON- AMER. (test 39 ML/MIN/1.73 code = 95066) CALC BUN/CREAT (test code = 27 RATIO [...] code = 2219) 20 U/L COMPREHENSIVE METABOLIC [id number] 00:00:00 Test Item Value Reference Range Interpretation Comments GLUCOSE (test code = 2217) 121 MG/DL BUN (test code = 2208) 40 MG/DL CREATININE (test code = 2214) 1.48 MG/DL eGFR AMER. (test code 45 ML/MIN/1.73 = 57920) eGFR NON- AMER. (test 39 ML/MIN/1.73 code = 31622) CALC BUN/CREAT (test code = 27 RATIO [...] (test code = 2219) 20 U/L LIPID [id number] 00:00:00 Test Item Value Reference Range Interpretation Comments CHOLESTEROL (test code = 2210) 261 MG/DL TRIGLYCERIDES (test code = 2232) 165 MG/DL HDL CHOLESTEROL (test code = 2220) 58 MG/DL CALC LDL CHOL (test code = 2237) 170 MG/DL RISK RATIO LDL/HDL (test code = 2.93 RATIO 2238) LIPID [id number] 00:00:00 Test Item Value Reference Range Interpretation Comments CHOLESTEROL (test code = 2210) 261 MG/DL TRIGLYCERIDES (test code = 2232) 165 MG/DL HDL CHOLESTEROL (test code = 2220) 58 MG/DL CALC LDL CHOL (test code = 2237) 170 MG/DL RISK RATIO LDL/HDL (test code = 2.93 RATIO 2238) CBC W/AUTO [id number] 00:00:00 Test Item Value Reference Range Interpretation [...] code = 1015) 378 K/UL CBC W/AUTO [id number] 00:00:00 Test Item Value Reference Range Interpretation [...] code = 1015) 378 K/UL CBC W/AUTO [id number] 00:00:00 Test Item Value Reference Range Interpretation [...] (test code = 1015) 378 K/UL HEMOGLOBIN [id number] 00:00:00 Test Item Value Reference Range Interpretation Comments HEMOGLOBIN A1c (test code = 98826) 6.4 % HEMOGLOBIN [id number] 00:00:00 Test Item Value Reference Range Interpretation Comments HEMOGLOBIN A1c (test code = 34032) 6.4 % HEMOGLOBIN [id number] 00:00:00 Test Item Value Reference Range Interpretation Comments HEMOGLOBIN A1c (test code = 74241) 6.4 % [id number] 00:00:00 Test Item Value Reference Range Interpretation Comments TSH (test code = 2821) 5.290 UIU/ML [id number] 00:00:00 Test Item Value Reference Range Interpretation Comments TSH (test code = 2821) 5.290 UIU/ML [id number] 00:00:00 Test Item Value Reference Range Interpretation Comments TSH (test code = 2821) 5.290 UIU/ML LIPID [id number] 00:00:00 Test Item Value Reference Range Interpretation Comments CHOLESTEROL (test code = 2210) 261 MG/DL TRIGLYCERIDES (test code = 2232) 165 MG/DL HDL CHOLESTEROL (test code = 2220) 58 MG/DL CALC LDL CHOL (test code = 2237) 170 MG/DL RISK RATIO LDL/HDL (test code = 2.93 RATIO 2238) LIPID [id number] 00:00:00 Test Item Value Reference Range Interpretation Comments CHOLESTEROL (test code = 2210) 261 MG/DL TRIGLYCERIDES (test code = 2232) 165 MG/DL HDL CHOLESTEROL (test code = 2220) 58 MG/DL CALC LDL CHOL (test code = 2237) 170 MG/DL RISK RATIO LDL/HDL (test code = 2.93 RATIO 2238) CBC W/AUTO [id number] 00:00:00 Test Item Value Reference Range Interpretation [...] code = 1015) 378 K/UL CBC W/AUTO [id number] 00:00:00 Test Item Value Reference Range Interpretation [...] code = 1015) 378 K/UL CBC W/AUTO [id number] 00:00:00 Test Item Value Reference Range Interpretation [...] (test code = 1015) 378 K/UL HEMOGLOBIN [id number] 00:00:00 Test Item Value Reference Range Interpretation Comments HEMOGLOBIN A1c (test code = 60005) 6.4 % HEMOGLOBIN [id number] 00:00:00 Test Item Value Reference Range Interpretation Comments HEMOGLOBIN A1c (test code = 80233) 6.4 % HEMOGLOBIN [id number] 00:00:00 Test Item Value Reference Range Interpretation Comments HEMOGLOBIN A1c (test code = 94865) 6.4 % [id number] 00:00:00 Test Item Value Reference Range Interpretation Comments TSH (test code = 2821) 5.290 UIU/ML [id number] 00:00:00 Test Item Value Reference Range Interpretation Comments TSH (test code = 2821) 5.290 UIU/ML [id number] 00:00:00 Test Item Value Reference Range Interpretation Comments TSH (test code = 2821) 5.290 UIU/ML LIPID [id number] 00:00:00 Test Item Value Reference Range Interpretation Comments CHOLESTEROL (test code = 2210) 261 MG/DL TRIGLYCERIDES (test code = 2232) 165 MG/DL HDL CHOLESTEROL (test code = 2220) 58 MG/DL CALC LDL CHOL (test code = 2237) 170 MG/DL RISK RATIO LDL/HDL (test code = 2.93 RATIO 2238) CBC W/AUTO [id number] 00:00:00 Test Item Value Reference Range Interpretation [...] code = 1015) 378 K/UL CBC W/AUTO [id number] 00:00:00 Test Item Value Reference Range Interpretation [...] (test code = 1015) 378 K/UL HEMOGLOBIN [id number] 00:00:00 Test Item Value Reference Range Interpretation Comments HEMOGLOBIN A1c (test code = 76847) 6.4 % HEMOGLOBIN [id number] 00:00:00 Test Item Value Reference Range Interpretation Comments HEMOGLOBIN A1c (test code = 77808) 6.4 % [id number] 00:00:00 Test Item Value Reference Range Interpretation Comments TSH (test code = 2821) 5.290 UIU/ML [id number] 00:00:00 Test Item Value Reference Range Interpretation Comments TSH (test code = 2821) 5.290 UIU/ML LIPID [id number] 00:00:00 Test Item Value Reference Range Interpretation Comments CHOLESTEROL (test code = 2210) 261 MG/DL TRIGLYCERIDES (test code = 2232) 165 MG/DL HDL CHOLESTEROL (test code = 2220) 58 MG/DL CALC LDL CHOL (test code = 2237) 170 MG/DL RISK RATIO LDL/HDL (test code = 2.93 RATIO 2238) LIPID [id number] 00:00:00 Test Item Value Reference Range Interpretation Comments CHOLESTEROL (test code = 2210) 261 MG/DL TRIGLYCERIDES (test code = 2232) 165 MG/DL HDL CHOLESTEROL (test code = 2220) 58 MG/DL CALC LDL CHOL (test code = 2237) 170 MG/DL RISK RATIO LDL/HDL (test code = 2.93 RATIO 2238) CBC W/AUTO [id number] 00:00:00 Test Item Value Reference Range Interpretation [...] code = 1015) 378 K/UL CBC W/AUTO [id number] 00:00:00 Test Item Value Reference Range Interpretation [...] code = 1015) 378 K/UL CBC W/AUTO [id number] 00:00:00 Test Item Value Reference Range Interpretation [...] (test code = 1015) 378 K/UL HEMOGLOBIN [id number] 00:00:00 Test Item Value Reference Range Interpretation Comments HEMOGLOBIN A1c (test code = 45267) 6.4 % HEMOGLOBIN [id number] 00:00:00 Test Item Value Reference Range Interpretation Comments HEMOGLOBIN A1c (test code = 60059) 6.4 % HEMOGLOBIN [id number] 00:00:00 Test Item Value Reference Range Interpretation Comments HEMOGLOBIN A1c (test code = 18606) 6.4 % [id number] 00:00:00 Test Item Value Reference Range Interpretation Comments TSH (test code = 2821) 5.290 UIU/ML [id number] 00:00:00 Test Item Value Reference Range Interpretation Comments TSH (test code = 2821) 5.290 UIU/ML [id number] 00:00:00 Test Item Value Reference Range Interpretation [...] code = 2821) 1.030 UIU/ML COMPREHENSIVE METABOLIC [id number] 00:00:00 Test Item Value Reference Range Interpretation Comments GLUCOSE (test code = 2217) 106 MG/DL BUN (test code = 2208) 23 MG/DL CREATININE (test code = 2214) 0.66 MG/DL eGFR AMER. (test code 114 ML/MIN/1.73 = 06462) eGFR NON- AMER. (test 99 ML/MIN/1.73 code = 42102) CALC BUN/CREAT (test code = 35 RATIO [...] code = 2219) 31 U/L COMPREHENSIVE METABOLIC [id number] 00:00:00 Test Item Value Reference Range Interpretation Comments GLUCOSE (test code = 2217) 106 MG/DL BUN (test code = 2208) 23 MG/DL CREATININE (test code = 2214) 0.66 MG/DL eGFR AMER. (test code 114 ML/MIN/1.73 = 38350) eGFR NON- AMER. (test 99 ML/MIN/1.73 code = 52530) CALC BUN/CREAT (test code = 35 RATIO [...] code = 2821) 0.335 UIU/ML COMPREHENSIVE METABOLIC [id number] 00:00:00 Test Item Value Reference Range Interpretation Comments GLUCOSE (test code = 2217) 106 MG/DL BUN (test code = 2208) 23 MG/DL CREATININE (test code = 2214) 0.66 MG/DL eGFR AMER. (test code 114 ML/MIN/1.73 = 26550) eGFR NON- AMER. (test 99 ML/MIN/1.73 code = 86983) CALC BUN/CREAT (test code = 35 RATIO [...] code = 2219) 31 U/L COMPREHENSIVE METABOLIC [id number] 00:00:00 Test Item Value Reference Range Interpretation Comments GLUCOSE (test code = 2217) 106 MG/DL BUN (test code = 2208) 23 MG/DL CREATININE (test code = 2214) 0.66 MG/DL eGFR AMER. (test code 114 ML/MIN/1.73 = 52958) eGFR NON- AMER. (test 99 ML/MIN/1.73 code = 36608) CALC BUN/CREAT (test code = 35 RATIO [...] code = 2821) 0.335 UIU/ML COMPREHENSIVE METABOLIC [id number] 00:00:00 Test Item Value Reference Range Interpretation Comments GLUCOSE (test code = 2217) 106 MG/DL BUN (test code = 2208) 23 MG/DL CREATININE (test code = 2214) 0.66 MG/DL eGFR AMER. (test code 114 ML/MIN/1.73 = 29135) eGFR NON- AMER. (test 99 ML/MIN/1.73 code = 48067) CALC BUN/CREAT (test code = 35 RATIO [...] CALCULATED T7 (FTI) (test code = 1.71 1870) TSH (test code = 2821) 0.335 UIU/ML COMPREHENSIVE METABOLIC [id number] 00:00:00 Test Item Value Reference Range Interpretation Comments GLUCOSE (test code = 2217) 106 MG/DL BUN (test code = 2208) 23 MG/DL CREATININE (test code = 2214) 0.66 MG/DL eGFR AMER. (test code 114 ML/MIN/1.73 = 81832) eGFR NON- AMER. (test 99 ML/MIN/1.73 code = 75809) CALC BUN/CREAT (test code = 35 RATIO [...] code = 2219) 31 U/L COMPREHENSIVE METABOLIC [id number] 00:00:00 Test Item Value Reference Range Interpretation Comments GLUCOSE (test code = 2217) 106 MG/DL BUN (test code = 2208) 23 MG/DL CREATININE (test code = 2214) 0.66 MG/DL eGFR AMER. (test code 114 ML/MIN/1.73 = 77093) eGFR NON- AMER. (test 99 ML/MIN/1.73 code = 14997) CALC BUN/CREAT (test code = 35 RATIO [...] code = 2821) 0.335 UIU/ML COMPREHENSIVE METABOLIC [id number] 00:00:00 Test Item Value Reference Range Interpretation Comments GLUCOSE (test code = 2217) 103 MG/DL BUN (test code = 2208) 15 MG/DL CREATININE (test code = 2214) 0.77 MG/DL eGFR AMER. (test code 101 ML/MIN/1.73 = 95479) eGFR NON- AMER. (test 87 ML/MIN/1.73 code = 91812) CALC BUN/CREAT (test code = 19 RATIO [...] code = 2219) 24 U/L COMPREHENSIVE METABOLIC [id number] 00:00:00 Test Item Value Reference Range Interpretation Comments GLUCOSE (test code = 2217) 103 MG/DL BUN (test code = 2208) 15 MG/DL CREATININE (test code = 2214) 0.77 MG/DL eGFR AMER. (test code 101 ML/MIN/1.73 = 39279) eGFR NON- AMER. (test 87 ML/MIN/1.73 code = 62912) CALC BUN/CREAT (test code = 19 RATIO [...] code = 2821) 0.424 UIU/ML COMPREHENSIVE METABOLIC [id number] 00:00:00 Test Item Value Reference Range Interpretation Comments GLUCOSE (test code = 2217) 103 MG/DL BUN (test code = 2208) 15 MG/DL CREATININE (test code = 2214) 0.77 MG/DL eGFR AMER. (test code 101 ML/MIN/1.73 = 77296) eGFR NON- AMER. (test 87 ML/MIN/1.73 code = 41405) CALC BUN/CREAT (test code = 19 RATIO [...] code = 2219) 24 U/L COMPREHENSIVE METABOLIC [id number] 00:00:00 Test Item Value Reference Range Interpretation Comments GLUCOSE (test code = 2217) 103 MG/DL BUN (test code = 2208) 15 MG/DL CREATININE (test code = 2214) 0.77 MG/DL eGFR AMER. (test code 101 ML/MIN/1.73 = 88225) eGFR NON- AMER. (test 87 ML/MIN/1.73 code = 85602) CALC BUN/CREAT (test code = 19 RATIO [...] code = 2821) 0.424 UIU/ML COMPREHENSIVE METABOLIC [id number] 00:00:00 Test Item Value Reference Range Interpretation Comments GLUCOSE (test code = 2217) 103 MG/DL BUN (test code = 2208) 15 MG/DL CREATININE (test code = 2214) 0.77 MG/DL eGFR AMER. (test code 101 ML/MIN/1.73 = 32905) eGFR NON- AMER. (test 87 ML/MIN/1.73 code = 38984) CALC BUN/CREAT (test code = 19 RATIO [...] code = 2821) 0.424 UIU/ML COMPREHENSIVE METABOLIC [id number] 00:00:00 Test Item Value Reference Range Interpretation Comments GLUCOSE (test code = 2217) 103 MG/DL BUN (test code = 2208) 15 MG/DL CREATININE (test code = 2214) 0.77 MG/DL eGFR AMER. (test code 101 ML/MIN/1.73 = 78743) eGFR NON- AMER. (test 87 ML/MIN/1.73 code = 05869) CALC BUN/CREAT (test code = 19 RATIO [...] code = 2219) 24 U/L COMPREHENSIVE METABOLIC [id number] 00:00:00 Test Item Value Reference Range Interpretation Comments GLUCOSE (test code = 2217) 103 MG/DL BUN (test code = 2208) 15 MG/DL CREATININE (test code = 2214) 0.77 MG/DL eGFR AMER. (test code 101 ML/MIN/1.73 = 72956) eGFR NON- AMER. (test 87 ML/MIN/1.73 code = 21742) CALC BUN/CREAT (test code = 19 RATIO 2235) SODIUM (test code = 2231) 136 MEQ/L POTASSIUM (test code = 2228) 4.7 MEQ/L CHLORIDE (test code = 2215) 94 MEQ/L CARBON DIOXIDE (test code = 27 MEQ/L 2206) CALCIUM (test code = 2209) 9.4 MG/DL PROTEIN, TOTAL (test code = 6.4 G/DL 9) ALBUMIN (test code = 2201) 4.3 G/DL [...] CALCULATED T7 (FTI) (test code = 1.37 8680) TSH (test code = 2821) 0.424 UIU/ML THYROID II PROFILE (T3U, T4, T7, TSH)[id number] 00:00:00 Test Item Value Reference Range Interpretation Comments T3 UPTAKE (test code = 2817) 35.1 % T4 (THYROXINE) (test code = 3.9 UG/DL 2819) CALCULATED T7 (FTI) (test code = 1.37 2820) TSH (test code = 2821) 0.424 UIU/ML CULTURE, [id number] 00:00:00 Test Item Value Reference Range Interpretation Comments CULTURE, URINE (test SPECIMEN NUMBER: code = 18466) [id number] CULTURE, [id number] 00:00:00 Test Item Value Reference Range Interpretation Comments CULTURE, URINE (test SPECIMEN NUMBER: code = 72089) [id number] CULTURE, [id number] 00:00:00 Test Item Value Reference Range Interpretation Comments CULTURE, URINE (test SPECIMEN NUMBER: code = 03007) [id number] CULTURE, [id number] 00:00:00 Test Item Value Reference Range Interpretation Comments CULTURE, URINE (test SPECIMEN NUMBER: code = 46706) [id number] CULTURE, [id number] 00:00:00 Test Item Value Reference Range Interpretation Comments CULTURE, URINE (test SPECIMEN NUMBER: code = 17130) [id number] CULTURE, [id number] 00:00:00 Test Item Value Reference Range Interpretation Comments CULTURE, URINE (test SPECIMEN NUMBER: code = 71913) [id number] CULTURE, [id number] 00:00:00 Test Item Value Reference Range Interpretation Comments CULTURE, URINE (test SPECIMEN NUMBER: code = 29141) [id number] CULTURE, [id number] 00:00:00 Test Item Value Reference Range Interpretation Comments CULTURE, URINE (test SPECIMEN NUMBER: code = 72980) [id number] CULTURE, [id number] 00:00:00 Test Item Value Reference Range Interpretation Comments CULTURE, URINE (test SPECIMEN NUMBER: code = 38642) [id number] CULTURE, [id number] 00:00:00 Test Item Value Reference Range Interpretation Comments CULTURE, URINE (test SPECIMEN NUMBER: code = 22526) [id number] CULTURE, [id number] 00:00:00 Test Item Value Reference Range Interpretation Comments CULTURE, URINE (test SPECIMEN NUMBER: code = 53712) [id number] CULTURE, [id number] 00:00:00 Test Item Value Reference Range Interpretation Comments CULTURE, URINE (test SPECIMEN NUMBER: code = 54311) [id number] CULTURE, [id number] 00:00:00 Test Item Value Reference Range Interpretation Comments CULTURE, URINE (test SPECIMEN NUMBER: code = 43309) [id number] CULTURE, [id number] 00:00:00 Test Item Value Reference Range Interpretation Comments CULTURE, URINE (test SPECIMEN NUMBER: code = 29423) [id number]
[2022-02-25] MEDS ORDERED: KETOROLAC 30 MG/ML INJ ONE (09:59)
[2022-02-25] MEDS ORDERED: NA CHLORIDE 0.9% 1,000 ML ONE (09:59)
[2022-02-25 10:15] LABS: Absolute Lymphocytes (CBC) 1.6 K/uL (0.7-4.9); Hematocrit 34.2 % (36.0-45.0); Lymphocytes % 12.8 % (15.3-44.8); MPV 6.8 fL (7.6-11.3); RBC Red Blood Cell Count 3.76 M/uL (3.86-4.86)
[2022-02-25 10:55] LABS: Albumin 2.9 g/dL (3.4-5.0); Bilirubin Total 0.4 mg/dL (0.2-1.0); Potassium 3.5 mmol/L (3.5-5.1); Protein, Total 7.2 g/dL (6.4-8.2)
[2022-02-25] MEDS ORDERED: PROMETHAZINE INJ 25 MG/ML AMP ONE (11:09)
[2022-02-25] MEDS ORDERED: DICYCLOMINE HCL 10 MG CAP ONE (11:09)
--- NOTE | 2022-02-25 11:22 | ER ---
Nurse's Notes [facility] Name: Jaimie Amanda Age: 61 yrs Sex: Female : 1960 Arrival Date: 02/25/2022 Time: 09:08 Bed 13 Private MD: Diagnosis: Nausea with vomiting, unspecified Presentation: 02/25 09:12 Chief complaint: Patient states: Continued N/V. Coronavirus screen: At this time, the jl7 client does not indicate any symptoms associated with coronavirus-19. Ebola Screen: No symptoms or risks identified at this time. Initial Sepsis Screen: Does the patient meet any 2 criteria? No. Patient's initial sepsis screen is negative. Does the patient have a suspected source of infection? No. Patient's initial sepsis screen is negative. Risk Assessment: Do you want to hurt yourself or someone else? Patient reports no desire to harm self or others. Onset of symptoms is unknown. 09:12 Method Of Arrival: Ambulatory [facility] 09:12 Acuity: ZHEN 3 jl7 Triage Assessment: 09:17 General: Appears in no apparent distress. uncomfortable, Behavior is calm, cooperative, jl7 appropriate for age. Pain: Complains of pain in epigastric area. GI: Reports nausea. Historical: - Allergies: 09:17 No Known Allergies; jl7 - PMHx: 09:17 Alcoholism; Anxiety; Chronic Abdominal Pain; Hypertensive disorder; Hypothyroidism; low jl7 NA; NIDDM; - PSHx: 09:17 Thyroidectomy; jl7 - Immunization history:: Client reports receiving the 2nd dose of the Covid vaccine. - Social history:: Smoking status: Patient reports the use of cigarette tobacco products. Screenin:02 [facility] ED Fall Risk Assessment (Adult) History of falling in the last 3 months, bp including since admission No falls in past 3 months (0 pts). Humpty Dumpty Scale Fall Assessment Tool (age< 18yrs) Age 13 years and above (1 pt). Abuse screen: Denies threats or abuse. Denies injuries from another. Nutritional screening: No deficits noted. Tuberculosis screening: No symptoms or risk factors identified. Fall Risk No fall in past 12 months (0 pts). Assessment: 09:45 General: SEE TRIAGE NOTE. PT NOT OBJECTIVELY CHANGED FROM PREVIOUS MX VISITS THIS bp MONTH. STATING NAUSEA BUT NO EMESIS EVIDENT. 10:31 Reassessment: No changes from previously documented assessment. Patient and/or family bp updated on plan of care and expected duration. Pain level reassessed. 11:51 Reassessment: PT DC HOME AMBULATORY. bp Vital Signs: 09:12 BP 106 / 63; Pulse 78; Resp 17; Temp 98.3; Pulse Ox 96% ; jl7 10:31 BP 105 / 50; Pulse 73; Resp 16; Pulse Ox 97% ; bp 11:51 BP 105 / 44; Pulse 62; Resp 16; Pulse Ox 99% ; bp ED Course: 09:08 Patient arrived in ED. mr 09:09 Viridiana Peters, ED[facility]ARDO [facility] jh7 09:09 Wilfrid Singh DO is Attending Physician. jh7 09:17 Triage completed. jl7 09:17 Arm band placed on right wrist. jl7 09:18 Arianna Jackson RN is Primary Nurse. jl7 09:45 Inserted saline lock: 20 gauge in left forearm, using aseptic technique. Blood bp collected. 10:02 Patient has correct armband on for positive identification. Bed in low position. Call bp light in reach. Side rails up X2. 11:51 No provider procedures requiring assistance completed. IV discontinued, intact, bp bleeding controlled, No redness/swelling at site. Pressure dressing applied. Administered Medications: 09:18 Drug: Ondansetron 8 mg Route: PO; jl7 09:45 Drug: NS 0.9% 1000 ml Route: IV; Rate: 1 bolus; Site: left forearm; bp 11:30 Follow up: IV Status: Completed infusion; IV Intake: 1000ml bp 09:56 Not Given (Physician Discretion): morphine 4 mg IVP once over 4 mins jh7 10:01 Drug: Ketorolac 30 mg Route: IVP; Site: left forearm; bp 11:31 Follow up: Response: Pain is decreased bp 11:15 Drug: Bentyl (dicyclomine) 20 mg {Note: GIVEN PO PER PROVIDER.} Route: IM; Site: bp affected area; 11:32 Follow up: Response: No adverse reaction bp 11:15 Drug: Phenergan (promethazine) 12.5 mg Route: IVP; Site: left antecubital; bp 11:32 Follow up: Response: No adverse reaction bp Medication: 11:51 VIS not applicable for this client. bp Intake: 11:30 IV: 1000ml; Total: 1000ml. bp Outcome: 11:22 Discharge ordered by MD. au 11:51 Discharged to home ambulatory, with family. bp 11:51 Condition: stable 11:51 Discharge instructions given to patient, Instructed on discharge instructions, follow up and referral plans. medication usage, Demonstrated understanding of instructions, follow-up care, medications, Prescriptions given X 2. 11:53 Patient left the ED. bp Signatures: Radha Messina Jahala, RN RN jl7 Sadiq Rosales, RN RN bp Lorraine, Viridiana, ROOFING SUPERINTENDENT ROOFING SUPERINTENDENT 7
--- NOTE | 2022-02-25 11:23 | EDPHYS ---
Physician Documentation [facility] Name: Jaimie Amanda Age: 61 yrs Sex: Female : 1960 Arrival Date: 02/25/2022 Time: 09:08 Bed 13 Private MD: ED Physician Wilfrid Singh HPI: 02/25 09:17 This 61 yrs old Female presents to ER via Unassigned with complaints of Abdominal Pain, jh7 Vomiting. 09:17 The patient presents with abdominal pain in the right upper quadrant. Onset: The jh7 symptoms/episode began/occurred yesterday. The symptoms do not radiate. Associated signs and symptoms: Pertinent positives: nausea, vomiting. Modifying factors: The symptoms are alleviated by zofran. Patient presents for abdominal pain and 3 episodes of vomiting since yesterday. The patient states that she was seen yesterday, given Zofran, and left because she felt better. States that she does not have a prescription for Zofran at home. Besides yesterday, the patient was also seen on the and all lab work was unremarkable.. Historical: - Allergies: 09:17 No Known Allergies; jl7 - PMHx: :17 Alcoholism; Anxiety; Chronic Abdominal Pain; Hypertensive disorder; Hypothyroidism; low jl7 NA; NIDDM; - PSHx: :17 Thyroidectomy; jl7 - Immunization history:: Client reports receiving the 2nd dose of the Covid vaccine. - Social history:: Smoking status: Patient reports the use of cigarette tobacco products. ROS: 09:17 Constitutional: Negative for fever, chills, and weight loss, Eyes: Negative for injury, jh7 pain, redness, and discharge, ENT: Negative for injury, pain, and discharge, Neck: Negative for injury, pain, and swelling, Cardiovascular: Negative for chest pain, palpitations, and edema, Respiratory: Negative for shortness of breath, cough, wheezing, and pleuritic chest pain, Abdomen/GI: Negative for abdominal pain, nausea, vomiting, diarrhea, and constipation, Back: Negative for injury and pain, MS/Extremity: Negative for injury and deformity, Skin: Negative for injury, rash, and discoloration, Neuro: Negative for headache, weakness, numbness, tingling, and seizure. 09:17 Abdomen/GI: Positive for abdominal pain, nausea and vomiting, Negative for diarrhea, constipation, rectal pain, rectal bleeding. 09:17 All other systems are negative. Exam: 09:17 Constitutional: This is a well developed, well nourished patient who is awake, alert, jh7 and in no acute distress. Head/Face: Normocephalic, atraumatic. Eyes: Pupils equal round and reactive to light, extra-ocular motions intact. Lids and lashes normal. Conjunctiva and sclera are non-icteric and not injected. Cornea within normal limits. Periorbital areas with no swelling, redness, or edema. ENT: Nares patent. No nasal discharge, no septal abnormalities noted. Tympanic membranes are normal and external auditory canals are clear. Oropharynx with no redness, swelling, or masses, exudates, or evidence of obstruction, uvula midline. Mucous membranes moist. Cardiovascular: Regular rate and rhythm with a normal S1 and S2. No gallops, murmurs, or rubs. Normal PMI, no JVD. No pulse deficits. Respiratory: Lungs have equal breath sounds bilaterally, clear to auscultation and percussion. No rales, rhonchi or wheezes noted. No increased work of breathing, no retractions or nasal flaring. Back: No spinal tenderness. No costovertebral tenderness. Full range of motion. Skin: Warm, dry with normal turgor. Normal color with no rashes, no lesions, and no evidence of cellulitis. MS/ Extremity: Pulses equal, no cyanosis. Neurovascular intact. Full, normal range of motion. Neuro: Awake and alert, GCS 15, oriented to person, place, time, and situation. Motor strength 5/5 in all extremities. Sensory grossly intact. Normal gait. 09:17 Abdomen/GI: Inspection: abdomen appears normal, Bowel sounds: normal, Palpation: abdomen is soft and non-tender. Vital Signs: 09:12 BP 106 / 63; Pulse 78; Resp 17; Temp 98.3; Pulse Ox 96% ; jl7 10:31 BP 105 / 50; Pulse 73; Resp 16; Pulse Ox 97% ; bp 11:51 BP 105 / 44; Pulse 62; Resp 16; Pulse Ox 99% ; bp MDM: 09:09 Patient medically screened. 7 11:36 Differential diagnosis: cholecystitis, gastritis, gastroesophageal reflux disease, jh7 non-specific abd pain. Data reviewed: vital signs, nurses notes, lab test result(s). Data interpreted: Pulse oximetry: is 97 %. Interpretation: normal. Counseling: I had a detailed discussion with the patient and/or guardian regarding: the historical points, exam findings, and any diagnostic results supporting the discharge/admit diagnosis, to return to the emergency department if symptoms worsen or persist or if there are any questions or concerns that arise at home. Response to treatment: the patient's symptoms have resolved after treatment, the patient's pain is gone. 02/25 09:38 Order name: CBC with Diff; Complete Time: 10:32 [facility] 02/25 09:38 Order name: CMP; Complete Time: 10:56 [facility] 02/25 09:38 Order name: Lipase; Complete Time: 10:56 [facility] 02/25 09:16 Order name: PO challenge; Complete Time: 10:03 [facility] 02/25 09:38 Order name: IV Saline Lock; Complete Time: 09:53 [facility] 02/25 09:38 Order name: Labs collected and sent; Complete Time: 09:53 [facility] 02/25 10:05 Order name: Labs - recollect needed: recollect green top; Complete Time: 10:30 bd Administered Medications: 09:18 Drug: Ondansetron 8 mg Route: PO; 7 09:45 Drug: NS 0.9% 1000 ml Route: IV; Rate: 1 bolus; Site: left forearm; bp 11:30 Follow up: IV Status: Completed infusion; IV Intake: 1000ml bp 09:56 Not Given (Physician Discretion): morphine 4 mg IVP once over 4 mins [facility] 10:01 Drug: Ketorolac 30 mg Route: IVP; Site: left forearm; bp 11:31 Follow up: Response: Pain is decreased bp 11:15 Drug: Bentyl (dicyclomine) 20 mg {Note: GIVEN PO PER PROVIDER.} Route: IM; Site: bp affected area; 11:32 Follow up: Response: No adverse reaction bp 11:15 Drug: Phenergan (promethazine) 12.5 mg Route: IVP; Site: left antecubital; bp 11:32 Follow up: Response: No adverse reaction bp Disposition: 11:26 Co-signature as Attending Physician, Wilfrid PEDRAZA was immediately available onsite ms3 in the emergency department for consultation in the care of the patient. Disposition Summary: 02/25/22 11:22 Discharge Ordered Location: Home [facility] Problem: an ongoing problem [facility] Symptoms: have improved jh Condition: Stable 7 Diagnosis - Nausea with vomiting, unspecified 7 Followup: [facility] - With: Private Physician - When: 2 - 3 days - Reason: Recheck today's complaints Discharge Instructions: - Discharge Summary Sheet [facility] - Nausea and Vomiting, Adult [facility] Forms: - Medication Reconciliation Form [facility] - Thank You Letter [facility] Prescriptions: - ondansetron 4 mg Oral tablet,disintegrating - place 1 tablet by TRANSLINGUAL route 4 times per day As needed; 20 tablet; jh7 Refills: 0, Product Selection Permitted - Levsin 0.125 mg Oral Tablet - take 1 tablet by ORAL route every 8 hours; 30 tablet; Refills: 0, Product [facility] Selection Permitted Signatures: Dispatcher [employer] EDTiffani Montero Jahala, RN RN jl7 Sadiq Rosales RN RN bp Sims, Marcus, DO DO ms3 Viridiana Peters FNP PROFESSOR OF HISTORICAL THEOLOGY [facility]
[2022-02-25 11:57] VITALS: TEMP 98.3
[2022-02-25 12:00] VITALS: BP 105/44; O2SAT 99
== END 2022-02-25 11:53 | disposition home or self-care (01) ==
LOC: ER 09:04
DX: R11.2 Nausea with vomiting, unspecified (principal); R10.11 Right upper quadrant pain; F17.210 Nicotine dependence, cigarettes, uncomplicated
CPT/HCPCS: 85025; 36415; 83690; 80053; J2550; Q0162; J7030; 96372; 99284

== ENCOUNTER 2022-03-07 09:03 | Emergency (ER) | payer OTHER ==
--- OUTSIDE RECORDS SUMMARY | 2022-03-07 09:17 | XMS REPORT | Continuity of Care Document ---
:1960 Author Organization [facility] t Address [address] [place] [address] Care Team Providers Name Role Phone Sharpless Primary Care Physician MATT SIMPSON Attending Clinician Unavailable MATT SIMPSON Attending Clinician Unavailable Doctor Unassigned, Globe Attending Clinician Unavailable WALLY KRISHNAMURTHY Attending Clinician Unavailable Natacha Brewster Attending Clinician Payers Payer Name Policy Type Policy Number Effective Date Expiration Date Sarina castelan [facility] [id number] 2017 00:00:00 PLUS Problems This patient has [...] ers OPHEN INGREDI 07-27 ity of 00:00: [place] [facility] Propensi Inactiv Reductas ty to e 2-28 e adverse 00:00: Inhibito reaction 00 rs to drug Nitrogly Propensi Active 2017-03 cerin ty to 1-08 adverse 00:00: reaction 00 to drug Social History Social Habit Start Date Stop Date Quantity Comments Source Alcohol intake 2016-05-01 2016-05-01 Current [facility] es 00:00:00 00:00:00 non-drinker of Medical nter alcohol (finding) Sex Ass[birth year] At [birth year] [facility] 00:00:00 00:00:00 [facility] Smoking Status Start Date Stop Date Source Current every day smoker 2016-05-01 00:00:00 [facility] Medications Ordered Filled Start Stop [...] anjelica [facility] Center OXcarbazepi 2017-0 Yes 600mg Q.[id number] Take [address] ne 2-23 [id number] [facility] (TR[facility]PTAL) 10:23: 3D mouth 3 Med ical 600 MG 59 (three) Center tablet times daily. PARoxetine 2017-0 Yes 40mg QD Take [address] (PAXIL) 40 2-23 by [facility] tablet 10:23: nightly. [address] OXcarbazepi 2017-0 Yes 600mg Q.92400127 Take [address] ne 2-23 [id number] [facility] (TRILEPTAL) 10:23: 3D mouth 3 Med ical 600 MG 59 (three) Center tablet times daily. OXcarbazepi 2017-0 Yes 600mg Q.02313988 Take [address] ne 2-23 [id number] [facility] (TRILEPTAL) 10:23: 3D mouth 3 Med ical 600 MG 59 (three) Center tablet times daily. PARoxetine 2017-0 Yes 40mg QD Take [address] (PAXIL) 40 2-23 [facility] tablet 10:23: nightly. [address] PARoxetine 2017-0 Yes 40mg QD Take [address] (PAXIL) 40 2-23 by [facility] tablet 10:23: nightly. [address] OXcarbazepi 2017-0 Yes 600mg Q.34645820 Take [address] ne 2-23 [id number] [facility] (TRILEPTAL) 10:23: 3D mouth 3 Med ical 600 MG 59 (three) Center tablet times daily. PARoxetine 2017-0 Yes 40mg QD Take [address] (PAXIL) 40 2-23 by [facility] tablet 10:23: nightly. [address] OXcarbazepi 2017-0 Yes 600mg Q.32493057 Take [address] ne 2-23 [id number] [facility] (TRILEPTAL) 10:23: 3D mouth 3 Med ical 600 MG 59 (three) Center tablet times daily. PARoxetine 2017-0 Yes 40mg QD Take [address] (PAXIL) 40 2-23 by [facility] tablet 10:23: nightly. [address] OXcarbazepi 2017-0 Yes 600mg Q.14317523 Take [address] ne 2-23 3141252927 [facility] (TRILEPTAL) 10:23: 3D mouth 3 Med ical 600 MG 59 (three) Center tablet times daily. PARoxetine 2017-0 Yes 40mg QD Take [address] (PAXIL) 40 2-23 by [facility] tablet 10:23: nightly. [address] 2017-0 Yes 600mg Q.62424473 Take [address] ne 2-23 [id number] [facility] (TRILEPTAL) 10:23: 3D mouth 3 Med ical 600 MG 59 (three) Center tablet times daily. PARoxetine 2017-0 Yes 40mg QD Take [address] (PAXIL) 40 2-23 by [facility] tablet 10:23: nightly. [address] 2017-0 Yes 600mg Q.04896141 Take [address] ne 2-23 0053311950 [facility] (TRILEPTAL) 10:23: 3D mouth 3 Med ical 600 MG 59 (three) Center tablet times daily. PARoxetine 2017-0 Yes 40mg QD Take [address] (PAXIL) 40 2-23 [facility] tablet 10:23: nightly. [address] 2017-0 Yes 600mg Q.82267185 Take [address] ne 2-23 [id number] [facility] (TRILEPTAL) 10:23: 3D mouth 3 Med ical 600 MG 59 (three) Center tablet times daily. PARoxetine 2017-0 Yes 40mg QD Take [address] (PAXIL) 40 2-23 by [facility] tablet 10:23: nightly. [address] OXcarbazepi 2017-0 Yes 600mg Q.67665126 Take [address] ne 2-23 [id number] [facility] (TRILEPTAL) 10:23: 3D mouth 3 Med ical 600 MG 59 (three) Center tablet times daily. PARoxetine 2017-0 Yes 40mg QD Take [address] (PAXIL) 40 2-23 by mouth [facility] MG tablet 10:23: nightly. [address] OXcarbazepi 2017-0 Yes 600mg Q.83095228 Take [address] ne 2-23 [id number] [facility] (TRILEPTAL) 10:23: 3D mouth 3 Med ical 600 MG 59 (three) Center tablet times daily. OXcarbazepi 2017-0 Yes 600mg Q.43255423 Take [address] ne 2-23 [id number] [facility] (TRILEPTAL) 10:23: 3D mouth 3 Med ical 600 MG 59 (three) Center tablet times daily. PARoxetine 2017-0 Yes 40mg QD Take [address] (PAXIL) 40 2-23 by [facility] MG tablet 10:23: nightly. Medi anjelica 59 Center OXcarbazepi 2017-0 Yes 600mg Q.40709197 Take [address] ne 2-23 [id number] mg [facility] (TRILEPTAL) 10:23: 3D mouth 3 Med ical 600 MG 59 (three) Center tablet times daily. PARoxetine 2017-0 Yes 40mg QD Take [address] (PAXIL) 40 2-23 by mouth [facility] MG tablet 10:23: nightly. [facility] anjelica 59 Center OXcarbazepi 2017-0 Yes 600mg Q.76663258 Take [address] ne 2-23 [id number] mg by [facility] (TRILEPTAL) 10:23: 3D mouth 3 Med ical 600 MG 59 (three) Center tablet times daily. PARoxetine 2017-0 Yes 40mg QD Take [address] (PAXIL) 40 2-23 by [facility] MG tablet 10:23: nightly. [facility] anjelica 59 Center PARoxetine 2017-0 Yes 40mg QD Take [address] (PAXIL) 40 2-23 by mouth [facility] tablet 10:23: nightly. [facility] anjelica 59 Center OXcarbazepi 2017-0 Yes 600mg Q.25016134 Take [address] ne 2-23 [id number] mg by [facility] (TRILEPTAL) 10:23: 3D mouth 3 Med ical 600 MG 59 (three) Center tablet times daily. PARoxetine 2017-0 Yes 40mg QD Take [address] (PAXIL) 40 2-23 by [facility] tablet 10:23: nightly. Medi anjelica 59 Center OXcarbazepi 2017-0 Yes 600mg Q.76275996 Take [address] ne 2-23 [id number] [facility] (TRILEPTAL) 10:23: 3D mouth 3 Med ical 600 MG 59 (three) Center tablet times daily. PARoxetine 2017-0 Yes 40mg QD Take [address] (PAXIL) 40 2-23 by [facility] tablet 10:23: nightly. Medi anjelica 59 Center OXcarbazepi 2017-0 Yes 600mg Q.58411693 Take [address] ne 2-23 [id number] [facility] (TRILEPTAL) 10:23: 3D mouth [...] Goal Plan of Care Note [code = 86255-0] Goal Plan of Care Note [code = 64373-3] Goal Plan of Care Note [code = 48546-3] Goal Plan of Care Note [code = 35049-9] Goal Plan of Care Note [code = 30967-4] Goal Plan of Care Note [code = 14358-8] Goal Plan of Care Note [code = 39590-3] Goal Plan of Care Note [code = 13695-0] Goal Plan of Care Note [code = 74221-9] Goal Plan of Care Note [code = 78130-3] Goal Plan of Care Note [code = 07284-3] Goal Plan of Care Note [code = 54081-8] Goal Plan of Care Note [code = 02031-3] Goal Plan of Care Note [code = 41357-4] Goal Plan of Care Note [code = 27324-7] Goal Plan of Care Note [code = 96027-6] Goal Plan of Care Note [code = 77885-0] Goal Plan of Care Note [code = 99086-6] Goal Plan of Care Note [code = 68640-9] Goal Plan of Care Note [code = 33184-6] Goal Plan of Care Note [code = 67511-3] Goal Plan of Care Note [code = 61622-7] Goal Plan of Care Note [code = 95742-0] Goal Plan of Care Note [code = 26228-4] Goal Plan of Care Note [code = 25592-9] Goal Plan of Care Note [code = 70713-2] Goal Plan of Care Note [code = 93111-6] Goal Plan of Care Note [code = 52771-5] Goal Plan of Care Note [code = 18405-2] Goal Plan of Care Note [code = 37923-0] Goal Plan of Care Note [code = 84979-7] Goal Plan of Care Note [code = 09935-9] Goal Plan of Care Note [code = 39086-3] Goal Plan of Care Note [code = 26463-9] Goal Plan of Care Note [code = 35334-2] Goal Plan of Care Note [code = 78290-6] Goal Plan of Care Note [code = 10561-4] Goal Plan of Care Note [code = 80443-0] Goal Plan of Care Note [code = 00011-9] Goal Plan of Care Note [code = 43289-0] Goal Plan of Care Note [code = 88986-2] Goal Plan of Care Note [code = 85681-3] Goal Plan of Care Note [code = 53227-7] Goal Plan of Care Note [code = 29981-4] Goal Plan of Care Note [code = 29599-0] Goal Plan of Care Note [code = 14026-5] Goal Plan of Care Note [code = 03101-1] Goal Plan of Care Note [code = 61154-0] Goal Plan of Care Note [code = 88562-7] Goal Plan of Care Note [code = 98515-8] Goal Plan of Care Note [code = 09148-0] Goal Plan of Care Note [code = 59387-4] Goal Plan of Care Note [code = 84211-7] Goal Plan of Care Note [code = 72690-7] Goal Plan of Care Note [code = 38760-2] Goal Plan of Care Note [code = 73818-1] Goal Plan of Care Note [code = 16966-1] Goal Plan of Care Note [code = 70747-4] Goal Plan of Care Note [code = 22994-1] Goal Plan of Care Note [code = 56301-1] Goal Plan of Care Note [code = 63994-1] Goal Plan of Care Note [code = 95309-0] Goal Plan of Care Note [code = 76507-4] Goal Plan of Care Note [code = 43880-3] Goal Plan of Care Note [code = 44157-8] Goal Plan of Care Note [code = 57441-8] Goal Plan of Care Note [code = 08994-6] Goal Plan of Care Note [code = 05991-4] Goal Plan of Care Note [code = 01676-8] Goal Plan of Care Note [code = 41578-1] Goal Plan of Care Note [code = 80429-6] Goal Plan of Care Note [code = 69385-7] Goal Plan of Care Note [code = 05647-1] Goal Plan of Care Note [code = 45671-9] Goal Plan of Care Note [code = 79427-0] Goal Plan of Care Note [code = 83748-2] Goal Plan of Care Note [code = 28468-0] Goal Plan of Care Note [code = 81556-3] Goal Plan of Care Note [code = 51131-2] Goal Plan of Care Note [code = 94316-4] Goal Plan of Care Note [code = 77065-0] Goal Plan of Care Note [code = 59521-8] Goal Plan of Care Note [code = 72890-9] Goal Plan of Care Note [code = 90338-8] Goal Plan of Care Note [code = 21768-3] Goal Plan of Care Note [code = 29232-0] Goal Plan of Care Note [code = 50690-9] Goal Plan of Care Note [code = 55414-4] Goal Plan of Care Note [code = 49797-8] Goal Plan of Care Note [code = 07157-2] Goal Plan of Care Note [code = 17569-0] Goal Plan of Care Note [code = 84405-1] Goal Plan of Care Note [code = 55071-1] Goal Plan of Care Note [code = 34758-9] Goal Plan of Care Note [code = 06186-2] Goal Plan of Care Note [code = 35636-3] Goal Plan of Care Note [code = 14681-3] Goal Plan of Care Note [code = 54796-8] Goal Plan of Care Note [code = 23952-7] Goal Plan of Care Note [code = 18731-7] Goal Plan of Care Note [code = 65532-3] Goal Plan of Care Note [code = 67400-9] Goal Plan of Care Note [code = 74010-0] Goal Plan of Care Note [code = 91193-6] Goal Plan of Care Note [code = 46599-5] Goal Plan of Care Note [code = 21324-9] Goal Plan of Care Note [code = 95487-6] Goal Plan of Care Note [code = 92459-1] Goal Plan of Care Note [code = 46458-0] Goal Plan of Care Note [code = 28017-6] Goal Plan of Care Note [code = 98653-5] Goal Plan of Care Note [code = 60082-8] Goal Plan of Care Note [code = 23744-0] Goal Plan of Care Note [code = 96020-7] Goal Plan of Care Note [code = 08616-5] Goal Plan of Care Note [code = 52473-2] Goal Plan of Care Note [code = 59866-5] Goal Plan of Care Note [code = 20265-1] Goal Plan of Care Note [code = 56206-6] Goal Plan of Care Note [code = 50001-6] Goal Plan of Care Note [code = 02410-4] Goal Plan of Care Note [code = 04940-6] Goal Plan of Care Note [code = 95698-9] Goal Plan of Care Note [code = 49563-3] Goal Plan of Care Note [code = 92267-8] Goal Plan of Care Note [code = 80491-0] Goal Plan of Care Note [code = 02144-3] Goal Plan of Care Note [code = 87833-7] Goal Plan of Care Note [code = 79487-8] Goal Plan of Care Note [code = 19041-0] Goal Plan of Care Note [code = 59239-5] Goal Plan of Care Note [code = 71054-8] Goal Plan of Care Note [code = 19277-3] Goal Plan of Care Note [code = 71135-9] Goal Plan of Care Note [code = 56003-4] Goal Plan of Care Note [code = 24478-1] Goal Plan of Care Note [code = 74353-3] Goal Plan of Care Note [code = 48731-0] Goal Plan of Care Note [code = 08072-1] Goal Plan of Care Note [code = 84132-9] Goal Plan of Care Note [code = 73572-5] Goal Plan of Care Note [code = 55884-4] Goal Plan of Care Note [code = 62134-0] Goal Plan of Care Note [code = 57977-5] Goal Plan of Care Note [code = 86323-2] Goal Plan of Care Note [code = 49158-6] Goal Plan of Care Note [code = 24202-5] Goal Plan of Care Note [code = 58637-3] Goal Plan of Care Note [code = 40099-9] Goal Plan of Care Note [code = 60993-4] Goal Plan of Care Note [code = 74467-9] Goal Plan of Care Note [code = 83941-9] Goal Plan of Care Note [code = 33318-5] Goal Plan of Care Note [code = 20281-8] Goal Plan of Care Note [code = 06734-4] Goal Plan of Care Note [code = 43973-6] Goal Plan of Care Note [code = 97736-2] Goal Plan of Care Note [code = 91985-8] Goal Plan of Care Note [code = 86379-7] Goal Plan of Care Note [code = 15713-1] Goal Plan of Care Note [code = 00536-5] Goal Plan of Care Note [code = 98627-3] Goal Plan of Care Note [code = 75666-4] Goal Plan of Care Note [code = 36075-9] Goal Plan of Care Note [code = 32633-1] Goal Plan of Care Note [code = 16466-8] Goal Plan of Care Note [code = 87377-4] Goal Plan of Care Note [code = 67067-3] Goal Plan of Care Note [code = 35259-5] Goal Plan of Care Note [code = 06553-1] Goal Plan of Care Note [code = 11088-5] Goal Plan of Care Note [code = 10365-8] Goal Plan of Care Note [code = 19146-2] Goal Plan of Care Note [code = 66420-4] Goal Plan of Care Note [code = 46516-4] Goal Plan of Care Note [code = 49480-0] Goal Plan of Care Note [code = 08957-6] Goal Plan of Care Note [code = 45734-6] Goal Plan of Care Note [code = 93494-2] Goal Plan of Care Note [code = 00266-2] Goal Plan of Care Note [code = 64772-5] Goal Plan of Care Note [code = 40217-5] Goal Plan of Care Note [code = 69799-6] Goal Plan of Care Note [code = 15419-1] Goal Plan of Care Note [code = 07607-5] Goal Plan of Care Note [code = 74186-4] Goal Plan of Care Note [code = 85238-6] Goal Plan of Care Note [code = 80617-3] Goal Plan of Care Note [code = 04195-1] Goal Plan of Care Note [code = 14295-2] Goal Plan of Care Note [code = 68299-7] Goal Plan of Care Note [code = 29586-6] Goal Plan of Care Note [code = 64117-8] Goal Plan of Care Note [code = 15853-8] Goal Plan of Care Note [code = 74544-1] Goal Plan of Care Note [code = 04473-9] Goal Plan of Care Note [code = 76997-7] Goal Plan of Care Note [code = 48647-9] Goal Plan of Care Note [code = 67615-6] Goal Plan of Care Note [code = 35751-3] Goal Plan of Care Note [code = 04951-0] Goal Plan of Care Note [code = 64007-0] Goal Plan of Care Note [code = 15401-7] Goal Plan of Care Note [code = 01992-8] Goal Plan of Care Note [code = 75498-8] Goal Plan of Care Note [code = 61112-5] Goal Plan of Care Note [code = 14406-1] Goal Plan of Care Note [code = 23601-1] Encounters Start End Encounter Admission Attending Care Care Encounter Source Date/Time Date/Time Type Type Clinicians Facility Department ID 2021-06-01 [facility] [id number] [place] 01:36:29 [id number] [facility] 2022-02-11 2022-02-11 Outpatient SFA SFA [id number] Cristian 09:04:48 09:04:48 1206 F Jerman 2022-02-10 2022-02-10 Outpatient SFA SFA [id number] 022 Cristian 09:29:34 09:29:34 1205 F Jerman 2022-02-10 2022-02-10 Outpatient [id number]- [id number] 0r16a3-0 00:00:00 00:00:00 Visit 4089-4cab 089-4cab-9 -5fu1-m2e bf5-v7f516 228asly21 bafa93 2022-01-10 2022-01-10 Outpatient SFA SFA [id number] 022 Cristian 09:16:14 09:16:14 1104 F Jerman 2022-01-10 2022-01-10 Outpatient p0fubaw5- [id number] f2 accaa6-a 00:00:00 00:00:00 Visit aca9-4c83 ca9-4c83-a -a4lj-pb7 7eb-bc13f3 1t1i102l6 f032f9 2021-12-19 2021-12-19 Outpatient SFA SFA 13239-2 022 Cristian 16:11:31 16:11:31 1013 F Jerman 2021-12-19 2021-12-19 Outpatient [id number] [id number] 00:00:00 00:00:00 Visit b446-549p 770-441f-a -adae-62b amelia-62bace ofyby95fa fd81af 2021-09-17 2021-09-17 Outpatient dgt1enni- [id number] m7mhcj-5 00:00:00 00:00:00 Visit 935a-4f50 35a-4f50-b -j47a-i9f 77d-c2ba85 z502473s2 1264a6 2020-08-03 2020-08-03 Outpatient MATT VÁSQUEZ [facility] [id number] [facility] 10:00:00 10:00:00 MATT SIMPSON [facility] 2020-07-25 2020-07-25 Orders Doctor ABE [id number] 00:00:00 00:00:00 Only UnassignedBK 350.1.13.10 [facility] 4.2.7.2.686 [id number] 2019-09-26 2019-09-26 Outpatient Bertin KRISHNAMURTHY [facility] [id number] [facility] 16:00:00 16:00:00 WALLY [facility] 2018-10-21 2018-10-21 [facility], [facility] [id number] 00:00:00 00:00:00 Natacha Nguyen 350.1.13.10 Ade 4.2.7.2.686 [place] [id number] [address] Results Test Description Test Time Test Comments Results Result Comments Source TSH, THIRD GENERATION 2021-06-27 05:15:49 Test Item Value Reference Range Interpretation Comme nts TSH, THIRD GENERATION (test code = 2821) 2.080 UIU/ML 0.400-4.100 HEMOGLOBIN [id number] 03:46:00 Test Item Value Reference Range Interpretation Comments HEMOGLOBIN A1c (test 6.6 % 4.2-5.6 H [employer] AN DIABETES code = 66267) ASSOCIATION IDELINES FOR HGB A1C: PREDIABETES/INC REASED [...] TESTING PER FORMED ATCLINICAL PATH [facility]LOGY LABORATORIES, [facility]. [address] [address] 8173 LABORATORY DIRE CTOR: DIANA RUSS M.D. CLIA NUMBER [id number] [place]. [id number] LIPID [id number] 02:59:52 Test Item Value Reference Range Interpretation [...] MOREINFORMATION , SEE CLIENT ANNOUNCE MENT AT [email or web address] RISK RATIO LDL/HDL 4.02 RATIO <3.22 H (test code = 2238) [id number] 00:00:00 Test Item Value Reference Range Interpretation Comments TSH, THIRD GENERATION (test code 2.080 UIU/ML = 2821) [id number] 00:00:00 Test Item Value Reference Range Interpretation Comments TSH, THIRD GENERATION (test code 2.080 UIU/ML = 2821) [id number] 00:00:00 Test Item Value Reference Range Interpretation Comments TSH, THIRD GENERATION (test code 2.080 UIU/ML = 2821) LIPID [id number] 00:00:00 Test Item Value Reference Range Interpretation Comments CHOLESTEROL (test code = 2210) 292 MG/DL TRIGLYCERIDES (test code = 2232) 184 MG/DL HDL CHOLESTEROL (test code = 2220) 51 MG/DL CALC LDL CHOL (test code = 2237) 205 MG/DL RISK RATIO LDL/HDL (test code = 4.02 RATIO 2238) LIPID [id number] 00:00:00 Test Item Value Reference Range Interpretation Comments CHOLESTEROL (test code = 2210) 292 MG/DL TRIGLYCERIDES (test code = 2232) 184 MG/DL HDL CHOLESTEROL (test code = 2220) 51 MG/DL CALC LDL CHOL (test code = 2237) 205 MG/DL RISK RATIO LDL/HDL (test code = 4.02 RATIO 2238) HEMOGLOBIN [id number] 00:00:00 Test Item Value Reference Range Interpretation Comments HEMOGLOBIN A1c (test code = 16611) 6.6 % HEMOGLOBIN [id number] 00:00:00 Test Item Value Reference Range Interpretation Comments HEMOGLOBIN A1c (test code = 56734) 6.6 % HEMOGLOBIN [id number] 00:00:00 Test Item Value Reference Range Interpretation Comments HEMOGLOBIN A1c (test code = 99546) 6.6 % [id number] 00:00:00 Test Item Value Reference Range Interpretation Comments TSH, THIRD GENERATION (test code 2.080 UIU/ML = 2821) [id number] 00:00:00 Test Item Value Reference Range Interpretation Comments TSH, THIRD GENERATION (test code 2.080 UIU/ML = 2821) [id number] 00:00:00 Test Item Value Reference Range Interpretation Comments TSH, THIRD GENERATION (test code 2.080 UIU/ML = 2821) LIPID [id number] 00:00:00 Test Item Value Reference Range Interpretation Comments CHOLESTEROL (test code = 2210) 292 MG/DL TRIGLYCERIDES (test code = 2232) 184 MG/DL HDL CHOLESTEROL (test code = 2220) 51 MG/DL CALC LDL CHOL (test code = 2237) 205 MG/DL RISK RATIO LDL/HDL (test code = 4.02 RATIO 2238) LIPID [id number] 00:00:00 Test Item Value Reference Range Interpretation Comments CHOLESTEROL (test code = 2210) 292 MG/DL TRIGLYCERIDES (test code = 2232) 184 MG/DL HDL CHOLESTEROL (test code = 2220) 51 MG/DL CALC LDL CHOL (test code = 2237) 205 MG/DL RISK RATIO LDL/HDL (test code = 4.02 RATIO 2238) HEMOGLOBIN [id number] 00:00:00 Test Item Value Reference Range Interpretation Comments HEMOGLOBIN A1c (test code = 87158) 6.6 % HEMOGLOBIN [id number] 00:00:00 Test Item Value Reference Range Interpretation Comments HEMOGLOBIN A1c (test code = 71348) 6.6 % HEMOGLOBIN [id number] 00:00:00 Test Item Value Reference Range Interpretation Comments HEMOGLOBIN A1c (test code = 92517) 6.6 % [id number] 00:00:00 Test Item Value Reference Range Interpretation Comments TSH, THIRD GENERATION (test code 2.080 UIU/ML = 2821) [id number] 00:00:00 Test Item Value Reference Range Interpretation Comments TSH, THIRD GENERATION (test code 2.080 UIU/ML = 2821) LIPID [id number] 00:00:00 Test Item Value Reference Range Interpretation Comments CHOLESTEROL (test code = 2210) 292 MG/DL TRIGLYCERIDES (test code = 2232) 184 MG/DL HDL CHOLESTEROL (test code = 2220) 51 MG/DL CALC LDL CHOL (test code = 2237) 205 MG/DL RISK RATIO LDL/HDL (test code = 4.02 RATIO 2238) HEMOGLOBIN [id number] 00:00:00 Test Item Value Reference Range Interpretation Comments HEMOGLOBIN A1c (test code = 27673) 6.6 % HEMOGLOBIN [id number] 00:00:00 Test Item Value Reference Range Interpretation Comments HEMOGLOBIN A1c (test code = 45962) 6.6 % [id number] 00:00:00 Test Item Value Reference Range Interpretation Comments TSH, THIRD GENERATION (test code 2.080 UIU/ML = 2821) [id number] 00:00:00 Test Item Value Reference Range Interpretation Comments TSH, THIRD GENERATION (test code 2.080 UIU/ML = 2821) [id number] 00:00:00 Test Item Value Reference Range Interpretation Comments TSH, THIRD GENERATION (test code 2.080 UIU/ML = 2821) LIPID [id number] 00:00:00 Test Item Value Reference Range Interpretation Comments CHOLESTEROL (test code = 2210) 292 MG/DL TRIGLYCERIDES (test code = 2232) 184 MG/DL HDL CHOLESTEROL (test code = 2220) 51 MG/DL CALC LDL CHOL (test code = 2237) 205 MG/DL RISK RATIO LDL/HDL (test code = 4.02 RATIO 2238) LIPID [id number] 00:00:00 Test Item Value Reference Range Interpretation Comments CHOLESTEROL (test code = 2210) 292 MG/DL TRIGLYCERIDES (test code = 2232) 184 MG/DL HDL CHOLESTEROL (test code = 2220) 51 MG/DL CALC LDL CHOL (test code = 2237) 205 MG/DL RISK RATIO LDL/HDL (test code = 4.02 RATIO 2238) HEMOGLOBIN [id number] 00:00:00 Test Item Value Reference Range Interpretation Comments HEMOGLOBIN A1c (test code = 48905) 6.6 % HEMOGLOBIN [id number] 00:00:00 Test Item Value Reference Range Interpretation Comments HEMOGLOBIN A1c (test code = 11639) 6.6 % HEMOGLOBIN [id number] 00:00:00 Test Item Value Reference Range Interpretation Comments HEMOGLOBIN A1c (test code = 25680) 6.6 % HEMOGLOBIN [id number] 00:00:00 Test Item Value Reference Range Interpretation Comments HEMOGLOBIN A1c (test code = 37345) 6.8 % HEMOGLOBIN [id number] 00:00:00 Test Item Value Reference Range Interpretation Comments HEMOGLOBIN A1c (test code = 78995) 6.8 % HEMOGLOBIN [id number] 00:00:00 Test Item Value Reference Range Interpretation Comments HEMOGLOBIN A1c (test code = 63680) 6.8 % LIPID [id number] 00:00:00 Test Item Value Reference Range Interpretation Comments CHOLESTEROL (test code = 2210) 303 MG/DL TRIGLYCERIDES (test code = 2232) 191 MG/DL HDL CHOLESTEROL (test code = 2220) 61 MG/DL CALC LDL CHOL (test code = 2237) 205 MG/DL RISK RATIO LDL/HDL (test code = 3.36 RATIO 2238) LIPID [id number] 00:00:00 Test Item Value Reference Range Interpretation Comments CHOLESTEROL (test code = 2210) 303 MG/DL TRIGLYCERIDES (test code = 2232) 191 MG/DL HDL CHOLESTEROL (test code = 2220) 61 MG/DL CALC LDL CHOL (test code = 2237) 205 MG/DL RISK RATIO LDL/HDL (test code = 3.36 RATIO 2238) [id number] 00:00:00 Test Item Value Reference Range Interpretation Comments TSH, THIRD GENERATION (test code 0.769 UIU/ML = 2821) [id number] 00:00:00 Test Item Value Reference Range Interpretation Comments TSH, THIRD GENERATION (test code 0.769 UIU/ML = 2821) [id number] 00:00:00 Test Item Value Reference Range Interpretation Comments TSH, THIRD GENERATION (test code 0.769 UIU/ML = 2821) COMPREHENSIVE METABOLIC [id number] 00:00:00 Test Item Value Reference Range Interpretation Comments GLUCOSE (test code = 2217) 131 MG/DL BUN (test code = 2208) 13 MG/DL CREATININE (test code = 2214) 0.65 MG/DL eGFR AMER. (test code 113 ML/MIN/1.73 = 92731) eGFR NON- AMER. (test 97 ML/MIN/1.73 code = 51800) CALC BUN/CREAT (test code = 20 RATIO [...] = <0.2 MG/DL 220) ALKALINE PHOSPHATASE (test 139 U/L code = 2204) AST (test code = 2218) 17 U/L ALT (test code = 2219) 23 U/L COMPREHENSIVE METABOLIC [id number] 00:00:00 Test Item Value Reference Range Interpretation Comments GLUCOSE (test code = 2217) 131 MG/DL BUN (test code = 2208) 13 MG/DL CREATININE (test code = 2214) 0.65 MG/DL eGFR AMER. (test code 113 ML/MIN/1.73 = 36987) eGFR NON- AMER. (test 97 ML/MIN/1.73 code = 66301) CALC BUN/CREAT (test code = 20 RATIO [...] (test code = 2219) 23 U/L HEMOGLOBIN [id number] 00:00:00 Test Item Value Reference Range Interpretation Comments HEMOGLOBIN A1c (test code = 51230) 6.8 % HEMOGLOBIN [id number] 00:00:00 Test Item Value Reference Range Interpretation Comments HEMOGLOBIN A1c (test code = 55251) 6.8 % HEMOGLOBIN [id number] 00:00:00 Test Item Value Reference Range Interpretation Comments HEMOGLOBIN A1c (test code = 63373) 6.8 % LIPID [id number] 00:00:00 Test Item Value Reference Range Interpretation Comments CHOLESTEROL (test code = 2210) 303 MG/DL TRIGLYCERIDES (test code = 2232) 191 MG/DL HDL CHOLESTEROL (test code = 2220) 61 MG/DL CALC LDL CHOL (test code = 2237) 205 MG/DL RISK RATIO LDL/HDL (test code = 3.36 RATIO 2238) LIPID [id number] 00:00:00 Test Item Value Reference Range Interpretation Comments CHOLESTEROL (test code = 2210) 303 MG/DL TRIGLYCERIDES (test code = 2232) 191 MG/DL HDL CHOLESTEROL (test code = 2220) 61 MG/DL CALC LDL CHOL (test code = 2237) 205 MG/DL RISK RATIO LDL/HDL (test code = 3.36 RATIO 2238) [id number] 00:00:00 Test Item Value Reference Range Interpretation Comments TSH, THIRD GENERATION (test code 0.769 UIU/ML = 2821) [id number] 00:00:00 Test Item Value Reference Range Interpretation Comments TSH, THIRD GENERATION (test code 0.769 UIU/ML = 2821) [id number] 00:00:00 Test Item Value Reference Range Interpretation Comments TSH, THIRD GENERATION (test code 0.769 UIU/ML = 2821) COMPREHENSIVE METABOLIC [id number] 00:00:00 Test Item Value Reference Range Interpretation Comments GLUCOSE (test code = 2217) 131 MG/DL BUN (test code = 2208) 13 MG/DL CREATININE (test code = 2214) 0.65 MG/DL eGFR AMER. (test code 113 ML/MIN/1.73 = 63767) eGFR NON- AMER. (test 97 ML/MIN/1.73 code = 72089) CALC BUN/CREAT (test code = 20 RATIO [...] code = 2219) 23 U/L COMPREHENSIVE METABOLIC [id number] 00:00:00 Test Item Value Reference Range Interpretation Comments GLUCOSE (test code = 2217) 131 MG/DL BUN (test code = 2208) 13 MG/DL CREATININE (test code = 2214) 0.65 MG/DL eGFR AMER. (test code 113 ML/MIN/1.73 = 99975) eGFR NON- AMER. (test 97 ML/MIN/1.73 code = 60258) CALC BUN/CREAT (test code = 20 RATIO [...] (test code = 2219) 23 U/L HEMOGLOBIN [id number] 00:00:00 Test Item Value Reference Range Interpretation Comments HEMOGLOBIN A1c (test code = 40765) 6.8 % HEMOGLOBIN [id number] 00:00:00 Test Item Value Reference Range Interpretation Comments HEMOGLOBIN A1c (test code = 47541) 6.8 % LIPID [id number] 00:00:00 Test Item Value Reference Range Interpretation Comments CHOLESTEROL (test code = 2210) 303 MG/DL TRIGLYCERIDES (test code = 2232) 191 MG/DL HDL CHOLESTEROL (test code = 2220) 61 MG/DL CALC LDL CHOL (test code = 2237) 205 MG/DL RISK RATIO LDL/HDL (test code = 3.36 RATIO 2238) [id number] 00:00:00 Test Item Value Reference Range Interpretation Comments TSH, THIRD GENERATION (test code 0.769 UIU/ML = 2821) [id number] 00:00:00 Test Item Value Reference Range Interpretation Comments TSH, THIRD GENERATION (test code 0.769 UIU/ML = 2821) COMPREHENSIVE METABOLIC [id number] 00:00:00 Test Item Value Reference Range Interpretation Comments GLUCOSE (test code = 2217) 131 MG/DL BUN (test code = 2208) 13 MG/DL CREATININE (test code = 2214) 0.65 MG/DL eGFR AMER. (test code 113 ML/MIN/1.73 = 72918) eGFR NON- AMER. (test 97 ML/MIN/1.73 code = 81662) CALC BUN/CREAT (test code = 20 RATIO [...] (test code = 2219) 23 U/L HEMOGLOBIN [id number] 00:00:00 Test Item Value Reference Range Interpretation Comments HEMOGLOBIN A1c (test code = 57041) 6.8 % HEMOGLOBIN [id number] 00:00:00 Test Item Value Reference Range Interpretation Comments HEMOGLOBIN A1c (test code = 99371) 6.8 % HEMOGLOBIN [id number] 00:00:00 Test Item Value Reference Range Interpretation Comments HEMOGLOBIN A1c (test code = 65826) 6.8 % LIPID [id number] 00:00:00 Test Item Value Reference Range Interpretation Comments CHOLESTEROL (test code = 2210) 303 MG/DL TRIGLYCERIDES (test code = 2232) 191 MG/DL HDL CHOLESTEROL (test code = 2220) 61 MG/DL CALC LDL CHOL (test code = 2237) 205 MG/DL RISK RATIO LDL/HDL (test code = 3.36 RATIO 2238) LIPID [id number] 00:00:00 Test Item Value Reference Range Interpretation Comments CHOLESTEROL (test code = 2210) 303 MG/DL TRIGLYCERIDES (test code = 2232) 191 MG/DL HDL CHOLESTEROL (test code = 2220) 61 MG/DL CALC LDL CHOL (test code = 2237) 205 MG/DL RISK RATIO LDL/HDL (test code = 3.36 RATIO 2238) [id number] 00:00:00 Test Item Value Reference Range Interpretation Comments TSH, THIRD GENERATION (test code 0.769 UIU/ML = 2821) [id number] 00:00:00 Test Item Value Reference Range Interpretation Comments TSH, THIRD GENERATION (test code 0.769 UIU/ML = 2821) [id number] 00:00:00 Test Item Value Reference Range Interpretation Comments TSH, THIRD GENERATION (test code 0.769 UIU/ML = 2821) COMPREHENSIVE METABOLIC [id number] 00:00:00 Test Item Value Reference Range Interpretation Comments GLUCOSE (test code = 2217) 131 MG/DL BUN (test code = 2208) 13 MG/DL CREATININE (test code = 2214) 0.65 MG/DL eGFR AMER. (test code 113 ML/MIN/1.73 = 34585) eGFR NON- AMER. (test 97 ML/MIN/1.73 code = 00720) CALC BUN/CREAT (test code = 20 RATIO [...] code = 2219) 23 U/L COMPREHENSIVE METABOLIC [id number] 00:00:00 Test Item Value Reference Range Interpretation Comments GLUCOSE (test code = 2217) 131 MG/DL BUN (test code = 2208) 13 MG/DL CREATININE (test code = 2214) 0.65 MG/DL eGFR AMER. (test code 113 ML/MIN/1.73 = 17333) eGFR NON- AMER. (test 97 ML/MIN/1.73 code = 85442) CALC BUN/CREAT (test code = 20 RATIO [...] (test code = 2219) 23 U/L HEMOGLOBIN [id number] 00:00:00 Test Item Value Reference Range Interpretation Comments HEMOGLOBIN A1c (test code = 58937) 6.6 % HEMOGLOBIN [id number] 00:00:00 Test Item Value Reference Range Interpretation Comments HEMOGLOBIN A1c (test code = 78900) 6.6 % HEMOGLOBIN [id number] 00:00:00 Test Item Value Reference Range Interpretation Comments HEMOGLOBIN A1c (test code = 75021) 6.6 % LIPID [id number] 00:00:00 Test Item Value Reference Range Interpretation Comments CHOLESTEROL (test code = 2210) 261 MG/DL TRIGLYCERIDES (test code = 2232) 159 MG/DL HDL CHOLESTEROL (test code = 2220) 82 MG/DL CALC LDL CHOL (test code = 2237) 150 MG/DL RISK RATIO LDL/HDL (test code = 1.83 RATIO 2238) LIPID [id number] 00:00:00 Test Item Value Reference Range Interpretation Comments CHOLESTEROL (test code = 2210) 261 MG/DL TRIGLYCERIDES (test code = 2232) 159 MG/DL HDL CHOLESTEROL (test code = 2220) 82 MG/DL CALC LDL CHOL (test code = 2237) 150 MG/DL RISK RATIO LDL/HDL (test code = 1.83 RATIO 2238) COMPREHENSIVE METABOLIC [id number] 00:00:00 Test Item Value Reference Range Interpretation Comments GLUCOSE (test code = 2217) 144 MG/DL BUN (test code = 2208) 15 MG/DL CREATININE (test code = 2214) 0.85 MG/DL eGFR AMER. (test code 87 ML/MIN/1.73 = 74317) eGFR NON- AMER. (test 75 ML/MIN/1.73 code = 27723) CALC BUN/CREAT (test code = 18 RATIO [...] code = 2219) 50 U/L COMPREHENSIVE METABOLIC [id number] 00:00:00 Test Item Value Reference Range Interpretation Comments GLUCOSE (test code = 2217) 144 MG/DL BUN (test code = 2208) 15 MG/DL CREATININE (test code = 2214) 0.85 MG/DL eGFR AMER. (test code 87 ML/MIN/1.73 = 23411) eGFR NON- AMER. (test 75 ML/MIN/1.73 code = 56834) CALC BUN/CREAT (test code = 18 RATIO [...] THYROX. BIND. CAPAC. (test code 1.1 = 21913) T4 (THYROXINE) (test code = 4.3 UG/DL 2819) CORRECTED T4 (FTI) (test code = 3.9 UG/DL 2820) TSH, THIRD GENERATION (test 18.900 UIU/ML code = 2821) THYROID II PROFILE (T3U, T4, T7, TSH)[id number] 00:00:00 Test Item Value Reference Range Interpretation Comments T-UPTAKE (test code = 7) 30.2 % THYROX. BIND. CAPAC. (test code 1.1 = 40970) T4 (THYROXINE) (test code = 4.3 UG/DL 2819) CORRECTED T4 (FTI) (test code = 3.9 UG/DL 2820) TSH, THIRD GENERATION (test 18.900 UIU/ML code = 2821) HEMOGLOBIN [id number] 00:00:00 Test Item Value Reference Range Interpretation Comments HEMOGLOBIN A1c (test code = 43686) 6.6 % HEMOGLOBIN [id number] 00:00:00 Test Item Value Reference Range Interpretation Comments HEMOGLOBIN A1c (test code = 19881) 6.6 % HEMOGLOBIN [id number] 00:00:00 Test Item Value Reference Range Interpretation Comments HEMOGLOBIN A1c (test code = 30209) 6.6 % LIPID [id number] 00:00:00 Test Item Value Reference Range Interpretation Comments CHOLESTEROL (test code = 2210) 261 MG/DL TRIGLYCERIDES (test code = 2232) 159 MG/DL HDL CHOLESTEROL (test code = 2220) 82 MG/DL CALC LDL CHOL (test code = 2237) 150 MG/DL RISK RATIO LDL/HDL (test code = 1.83 RATIO 2238) LIPID [id number] 00:00:00 Test Item Value Reference Range Interpretation Comments CHOLESTEROL (test code = 2210) 261 MG/DL TRIGLYCERIDES (test code = 2232) 159 MG/DL HDL CHOLESTEROL (test code = 2220) 82 MG/DL CALC LDL CHOL (test code = 2237) 150 MG/DL RISK RATIO LDL/HDL (test code = 1.83 RATIO 2238) COMPREHENSIVE METABOLIC [id number] 00:00:00 Test Item Value Reference Range Interpretation Comments GLUCOSE (test code = 2217) 144 MG/DL BUN (test code = 2208) 15 MG/DL CREATININE (test code = 2214) 0.85 MG/DL eGFR AMER. (test code 87 ML/MIN/1.73 = 22564) eGFR NON- AMER. (test 75 ML/MIN/1.73 code = 92522) CALC BUN/CREAT (test code = 18 RATIO [...] code = 2219) 50 U/L COMPREHENSIVE METABOLIC [id number] 00:00:00 Test Item Value Reference Range Interpretation Comments GLUCOSE (test code = 2217) 144 MG/DL BUN (test code = 2208) 15 MG/DL CREATININE (test code = 2214) 0.85 MG/DL eGFR AMER. (test code 87 ML/MIN/1.73 = 25753) eGFR NON- AMER. (test 75 ML/MIN/1.73 code = 71833) CALC BUN/CREAT (test code = 18 RATIO [...] THYROX. BIND. CAPAC. (test code 1.1 = 00333) T4 (THYROXINE) (test code = 4.3 UG/DL 281) CORRECTED T4 (FTI) (test code = 3.9 UG/DL 2820) TSH, THIRD GENERATION (test 18.900 UIU/ML code = 2821) THYROID II PROFILE (T3U, T4, T7, TSH)2020-05-23 00:00:00 Test Item Value Reference Range Interpretation Comments T-UPTAKE (test code = 2816) 30.2 % THYROX. BIND. CAPAC. (test code 1.1 = 29003) T4 (THYROXINE) (test code = 4.3 UG/DL 2819) CORRECTED T4 (FTI) (test code = 3.9 UG/DL 2820) TSH, THIRD GENERATION (test 18.900 UIU/ML code = 2821) HEMOGLOBIN [id number] 00:00:00 Test Item Value Reference Range Interpretation Comments HEMOGLOBIN A1c (test code = 03278) 6.6 % HEMOGLOBIN [id number] 00:00:00 Test Item Value Reference Range Interpretation Comments HEMOGLOBIN A1c (test code = 87888) 6.6 % LIPID [id number] 00:00:00 Test Item Value Reference Range Interpretation Comments CHOLESTEROL (test code = 2210) 261 MG/DL TRIGLYCERIDES (test code = 2232) 159 MG/DL HDL CHOLESTEROL (test code = 2220) 82 MG/DL CALC LDL CHOL (test code = 2237) 150 MG/DL RISK RATIO LDL/HDL (test code = 1.83 RATIO 2238) COMPREHENSIVE METABOLIC [id number] 00:00:00 Test Item Value Reference Range Interpretation Comments GLUCOSE (test code = 2217) 144 MG/DL BUN (test code = 2208) 15 MG/DL CREATININE (test code = 2214) 0.85 MG/DL eGFR AMER. (test code 87 ML/MIN/1.73 = 81738) eGFR NON- AMER. (test 75 ML/MIN/1.73 code = 85977) CALC BUN/CREAT (test code = 18 RATIO [...] THYROX. BIND. CAPAC. (test code 1.1 = 06624) T4 (THYROXINE) (test code = 4.3 UG/DL 2819) CORRECTED T4 (FTI) (test code = 3.9 UG/DL 2820) TSH, THIRD GENERATION (test 18.900 UIU/ML code = 2821) HEMOGLOBIN [id number] 00:00:00 Test Item Value Reference Range Interpretation Comments HEMOGLOBIN A1c (test code = 42781) 6.6 % HEMOGLOBIN [id number] 00:00:00 Test Item Value Reference Range Interpretation Comments HEMOGLOBIN A1c (test code = 07495) 6.6 % HEMOGLOBIN [id number] 00:00:00 Test Item Value Reference Range Interpretation Comments HEMOGLOBIN A1c (test code = 19715) 6.6 % LIPID [id number] 00:00:00 Test Item Value Reference Range Interpretation Comments CHOLESTEROL (test code = 2210) 261 MG/DL TRIGLYCERIDES (test code = 2232) 159 MG/DL HDL CHOLESTEROL (test code = 2220) 82 MG/DL CALC LDL CHOL (test code = 2237) 150 MG/DL RISK RATIO LDL/HDL (test code = 1.83 RATIO 2238) LIPID [id number] 00:00:00 Test Item Value Reference Range Interpretation Comments CHOLESTEROL (test code = 2210) 261 MG/DL TRIGLYCERIDES (test code = 2232) 159 MG/DL HDL CHOLESTEROL (test code = 2220) 82 MG/DL CALC LDL CHOL (test code = 2237) 150 MG/DL RISK RATIO LDL/HDL (test code = 1.83 RATIO 2238) COMPREHENSIVE METABOLIC [id number] 00:00:00 Test Item Value Reference Range Interpretation Comments GLUCOSE (test code = 2217) 144 MG/DL BUN (test code = 2208) 15 MG/DL CREATININE (test code = 2214) 0.85 MG/DL eGFR AMER. (test code 87 ML/MIN/1.73 = 15355) eGFR NON- AMER. (test 75 ML/MIN/1.73 code = 75535) CALC BUN/CREAT (test code = 18 RATIO [...] code = 2219) 50 U/L COMPREHENSIVE METABOLIC [id number] 00:00:00 Test Item Value Reference Range Interpretation Comments GLUCOSE (test code = 2217) 144 MG/DL BUN (test code = 2208) 15 MG/DL CREATININE (test code = 2214) 0.85 MG/DL eGFR AMER. (test code 87 ML/MIN/1.73 = 44587) eGFR NON- AMER. (test 75 ML/MIN/1.73 code = 41648) CALC BUN/CREAT (test code = 18 RATIO [...] THYROX. BIND. CAPAC. (test code 1.1 = 12407) T4 (THYROXINE) (test code = 4.3 UG/DL 2819) CORRECTED T4 (FTI) (test code = 3.9 UG/DL 2820) TSH, THIRD GENERATION (test 18.900 UIU/ML code = 2821) THYROID II PROFILE (T3U, T4, T7, TSH)2020-05-23 00:00:00 Test Item Value Reference Range Interpretation Comments T-UPTAKE (test code = 2816) 30.2 % THYROX. BIND. CAPAC. (test code 1.1 = 01452) T4 (THYROXINE) (test code = 4.3 UG/DL 2819) CORRECTED T4 (FTI) (test code = 3.9 UG/DL 2820) TSH, THIRD GENERATION (test 18.900 UIU/ML code = 2821) HEMOGLOBIN [id number] 00:00:00 Test Item Value Reference Range Interpretation Comments HEMOGLOBIN A1c (test code = 28999) 6.7 % HEMOGLOBIN [id number] 00:00:00 Test Item Value Reference Range Interpretation Comments HEMOGLOBIN A1c (test code = 54667) 6.7 % HEMOGLOBIN [id number] 00:00:00 Test Item Value Reference Range Interpretation Comments HEMOGLOBIN A1c (test code = 40723) 6.7 % LIPID [id number] 00:00:00 Test Item Value Reference Range Interpretation Comments CHOLESTEROL (test code = 2210) 267 MG/DL TRIGLYCERIDES (test code = 2232) 137 MG/DL HDL CHOLESTEROL (test code = 2220) 48 MG/DL CALC LDL CHOL (test code = 2237) 192 MG/DL RISK RATIO LDL/HDL (test code = 4.00 RATIO 2238) LIPID [id number] 00:00:00 Test Item Value Reference Range Interpretation Comments CHOLESTEROL (test code = 2210) 267 MG/DL TRIGLYCERIDES (test code = 2232) 137 MG/DL HDL CHOLESTEROL (test code = 2220) 48 MG/DL CALC LDL CHOL (test code = 2237) 192 MG/DL RISK RATIO LDL/HDL (test code = 4.00 RATIO 2238) COMPREHENSIVE METABOLIC [id number] 00:00:00 Test Item Value Reference Range Interpretation Comments GLUCOSE (test code = 2217) 155 MG/DL BUN (test code = 2208) 14 MG/DL CREATININE (test code = 2214) 0.52 MG/DL eGFR AMER. (test code 122 ML/MIN/1.73 = 91583) eGFR NON- AMER. (test 105 ML/MIN/1.73 code = 30715) CALC BUN/CREAT (test code = 27 RATIO 2235) SODIUM (test code = 2231) 142 MEQ/L POTASSIUM (test code = 2228) 4.4 MEQ/L CHLORIDE (test code = 2215) 104 MEQ/L CARBON DIOXIDE (test code = 25 MEQ/L 2205) CALCIUM (test code = 2209) 9.2 MG/DL PROTEIN, TOTAL (test code = 7.1 G/DL 2229) ALBUMIN (test code = 2201) 4.5 G/DL CALC GLOBULIN (test code = 2.6 G/DL 2240) CALC A/G RATIO (test code = 1.7 RATIO 2234) BILIRUBIN, TOTAL (test code = <0.2 MG/DL 220) ALKALINE PHOSPHATASE (test 115 U/L code = 2204) AST (test code = 2218) 17 U/L ALT (test code = 2219) 27 U/L COMPREHENSIVE METABOLIC [id number] 00:00:00 Test Item Value Reference Range Interpretation Comments GLUCOSE (test code = 2217) 155 MG/DL BUN (test code = 2208) 14 MG/DL CREATININE (test code = 2214) 0.52 MG/DL eGFR AMER. (test code 122 ML/MIN/1.73 = 37132) eGFR NON- AMER. (test 105 ML/MIN/1.73 code = 05499) CALC BUN/CREAT (test code = 27 RATIO [...] THYROX. BIND. CAPAC. (test code 1.0 = 30301) T4 (THYROXINE) (test code = 4.7 UG/DL 2819) CORRECTED T4 (FTI) (test code = 4.7 UG/DL 2820) TSH, THIRD GENERATION (test code 0.201 UIU/ML = 2821) THYROID II PROFILE (T3U, T4, T7, TSH)2019 00:00:00 Test Item Value Reference Range Interpretation Comments T-UPTAKE (test code = 2817) 33.1 % THYROX. BIND. CAPAC. (test code 1.0 = 17133) T4 (THYROXINE) (test code = 4.7 UG/DL 2819) CORRECTED T4 (FTI) (test code = 4.7 UG/DL 2820) TSH, THIRD GENERATION (test code 0.201 UIU/ML = 2821) HEMOGLOBIN [id number] 00:00:00 Test Item Value Reference Range Interpretation Comments HEMOGLOBIN A1c (test code = 26363) 6.7 % HEMOGLOBIN [id number] 00:00:00 Test Item Value Reference Range Interpretation Comments HEMOGLOBIN A1c (test code = 12632) 6.7 % HEMOGLOBIN [id number] 00:00:00 Test Item Value Reference Range Interpretation Comments HEMOGLOBIN A1c (test code = 53451) 6.7 % LIPID [id number] 00:00:00 Test Item Value Reference Range Interpretation Comments CHOLESTEROL (test code = 2210) 267 MG/DL TRIGLYCERIDES (test code = 2232) 137 MG/DL HDL CHOLESTEROL (test code = 2220) 48 MG/DL CALC LDL CHOL (test code = 2237) 192 MG/DL RISK RATIO LDL/HDL (test code = 4.00 RATIO 2238) LIPID [id number] 00:00:00 Test Item Value Reference Range Interpretation Comments CHOLESTEROL (test code = 2210) 267 MG/DL TRIGLYCERIDES (test code = 2232) 137 MG/DL HDL CHOLESTEROL (test code = 2220) 48 MG/DL CALC LDL CHOL (test code = 2237) 192 MG/DL RISK RATIO LDL/HDL (test code = 4.00 RATIO 2238) COMPREHENSIVE METABOLIC [id number] 00:00:00 Test Item Value Reference Range Interpretation Comments GLUCOSE (test code = 2217) 155 MG/DL BUN (test code = 2208) 14 MG/DL CREATININE (test code = 2214) 0.52 MG/DL eGFR AMER. (test code 122 ML/MIN/1.73 = 23159) eGFR NON- AMER. (test 105 ML/MIN/1.73 code = 75663) CALC BUN/CREAT (test code = 27 RATIO [...] code = 2219) 27 U/L COMPREHENSIVE METABOLIC [id number] 00:00:00 Test Item Value Reference Range Interpretation Comments GLUCOSE (test code = 2217) 155 MG/DL BUN (test code = 2208) 14 MG/DL CREATININE (test code = 2214) 0.52 MG/DL eGFR AMER. (test code 122 ML/MIN/1.73 = 06268) eGFR NON- AMER. (test 105 ML/MIN/1.73 code = 57528) CALC BUN/CREAT (test code = 27 RATIO [...] THYROX. BIND. CAPAC. (test code 1.0 = 47939) T4 (THYROXINE) (test code = 4.7 UG/DL 2819) CORRECTED T4 (FTI) (test code = 4.7 UG/DL 2820) TSH, THIRD GENERATION (test code 0.201 UIU/ML = 2821) THYROID II PROFILE (T3U, T4, T7, TSH)2019 00:00:00 Test Item Value Reference Range Interpretation Comments T-UPTAKE (test code = 2817) 33.1 % THYROX. BIND. CAPAC. (test code 1.0 = 80117) T4 (THYROXINE) (test code = 4.7 UG/DL 2819) CORRECTED T4 (FTI) (test code = 4.7 UG/DL 2820) TSH, THIRD GENERATION (test code 0.201 UIU/ML = 2821) HEMOGLOBIN [id number] 00:00:00 Test Item Value Reference Range Interpretation Comments HEMOGLOBIN A1c (test code = 45465) 6.7 % HEMOGLOBIN [id number] 00:00:00 Test Item Value Reference Range Interpretation Comments HEMOGLOBIN A1c (test code = 89353) 6.7 % LIPID [id number] 00:00:00 Test Item Value Reference Range Interpretation Comments CHOLESTEROL (test code = 2210) 267 MG/DL TRIGLYCERIDES (test code = 2232) 137 MG/DL HDL CHOLESTEROL (test code = 2220) 48 MG/DL CALC LDL CHOL (test code = 2237) 192 MG/DL RISK RATIO LDL/HDL (test code = 4.00 RATIO 2238) COMPREHENSIVE METABOLIC [id number] 00:00:00 Test Item Value Reference Range Interpretation Comments GLUCOSE (test code = 2217) 155 MG/DL BUN (test code = 2208) 14 MG/DL CREATININE (test code = 2214) 0.52 MG/DL eGFR AMER. (test code 122 ML/MIN/1.73 = 62179) eGFR NON- AMER. (test 105 ML/MIN/1.73 code = 53958) CALC BUN/CREAT (test code = 27 RATIO [...] THYROX. BIND. CAPAC. (test code 1.0 = 76735) T4 (THYROXINE) (test code = 4.7 UG/DL 2819) CORRECTED T4 (FTI) (test code = 4.7 UG/DL 2820) TSH, THIRD GENERATION (test code 0.201 UIU/ML = 2821) HEMOGLOBIN [id number] 00:00:00 Test Item Value Reference Range Interpretation Comments HEMOGLOBIN A1c (test code = 19194) 6.7 % HEMOGLOBIN [id number] 00:00:00 Test Item Value Reference Range Interpretation Comments HEMOGLOBIN A1c (test code = 71510) 6.7 % HEMOGLOBIN [id number] 00:00:00 Test Item Value Reference Range Interpretation Comments HEMOGLOBIN A1c (test code = 27419) 6.7 % LIPID [id number] 00:00:00 Test Item Value Reference Range Interpretation Comments CHOLESTEROL (test code = 2210) 267 MG/DL TRIGLYCERIDES (test code = 2232) 137 MG/DL HDL CHOLESTEROL (test code = 2220) 48 MG/DL CALC LDL CHOL (test code = 2237) 192 MG/DL RISK RATIO LDL/HDL (test code = 4.00 RATIO 2238) LIPID [id number] 00:00:00 Test Item Value Reference Range Interpretation Comments CHOLESTEROL (test code = 2210) 267 MG/DL TRIGLYCERIDES (test code = 2232) 137 MG/DL HDL CHOLESTEROL (test code = 2220) 48 MG/DL CALC LDL CHOL (test code = 2237) 192 MG/DL RISK RATIO LDL/HDL (test code = 4.00 RATIO 2238) COMPREHENSIVE METABOLIC [id number] 00:00:00 Test Item Value Reference Range Interpretation Comments GLUCOSE (test code = 2217) 155 MG/DL BUN (test code = 2208) 14 MG/DL CREATININE (test code = 2214) 0.52 MG/DL eGFR AMER. (test code 122 ML/MIN/1.73 = 87987) eGFR NON- AMER. (test 105 ML/MIN/1.73 code = 38733) CALC BUN/CREAT (test code = 27 RATIO [...] code = 2219) 27 U/L COMPREHENSIVE METABOLIC [id number] 00:00:00 Test Item Value Reference Range Interpretation Comments GLUCOSE (test code = 2217) 155 MG/DL BUN (test code = 2208) 14 MG/DL CREATININE (test code = 2214) 0.52 MG/DL eGFR AMER. (test code 122 ML/MIN/1.73 = 90742) eGFR NON- AMER. (test 105 ML/MIN/1.73 code = 48376) CALC BUN/CREAT (test code = 27 RATIO [...] THYROX. BIND. CAPAC. (test code 1.0 = 15354) T4 (THYROXINE) (test code = 4.7 UG/DL 2819) CORRECTED T4 (FTI) (test code = 4.7 UG/DL 2820) TSH, THIRD GENERATION (test code 0.201 UIU/ML = 2821) THYROID II PROFILE (T3U, T4, T7, TSH)2019 00:00:00 Test Item Value Reference Range Interpretation Comments T-UPTAKE (test code = 7) 33.1 % THYROX. BIND. CAPAC. (test code 1.0 = 09833) T4 (THYROXINE) (test code = 4.7 UG/DL 2819) CORRECTED T4 (FTI) (test code = 4.7 UG/DL 2820) TSH, THIRD GENERATION (test code 0.201 UIU/ML = 2821) SARS-CoV-2 (COVID-19) by RT-PCR (HIGH RISK)2019-09-18 00:00:00 Test Item Value Reference Range Interpretation Comments SARS-CoV-2 INTERPRETATION (test NEGATIVE code = 53935) SOURCE (test code = 48924) NOT SPECIFIED SARS-CoV-2 (COVID-19) by RT-PCR (HIGH RISK)2019-09-18 00:00:00 Test Item Value Reference Range Interpretation Comments SARS-CoV-2 INTERPRETATION (test NEGATIVE code = 69439) SOURCE (test code = 68741) NOT SPECIFIED SARS-CoV-2 (COVID-19) by RT-PCR (HIGH RISK)2019-09-18 00:00:00 Test Item Value Reference Range Interpretation Comments SARS-CoV-2 INTERPRETATION (test NEGATIVE code = 46535) SOURCE (test code = 21110) NOT SPECIFIED SARS-CoV-2 (COVID-19) by RT-PCR (HIGH RISK)2019-09-18 00:00:00 Test Item Value Reference Range Interpretation Comments SARS-CoV-2 INTERPRETATION (test NEGATIVE code = 17441) SOURCE (test code = 95120) NOT SPECIFIED SARS-CoV-2 (COVID-19) by RT-PCR (HIGH RISK)2019-09-18 00:00:00 Test Item Value Reference Range Interpretation Comments SARS-CoV-2 INTERPRETATION (test NEGATIVE code = 30021) SOURCE (test code = 50809) NOT SPECIFIED SARS-CoV-2 (COVID-19) by RT-PCR (HIGH RISK)2019-09-18 00:00:00 Test Item Value Reference Range Interpretation Comments SARS-CoV-2 INTERPRETATION (test NEGATIVE code = 81277) SOURCE (test code = 04715) NOT SPECIFIED SARS-CoV-2 (COVID-19) by RT-PCR (HIGH RISK)2019-09-18 00:00:00 Test Item Value Reference Range Interpretation Comments SARS-CoV-2 INTERPRETATION (test NEGATIVE code = 36566) SOURCE (test code = 79033) NOT SPECIFIED [id number] 00:00:00 Test Item Value Reference Range Interpretation Comments TSH, THIRD GENERATION (test code 2.490 UIU/ML = 2821) [id number] 00:00:00 Test Item Value Reference Range Interpretation Comments TSH, THIRD GENERATION (test code 2.490 UIU/ML = 2821) [id number] 00:00:00 Test Item Value Reference Range Interpretation Comments TSH, THIRD GENERATION (test code 2.490 UIU/ML = 2821) HEMOGLOBIN [id number] 00:00:00 Test Item Value Reference Range Interpretation Comments HEMOGLOBIN A1c (test code = 42387) 6.4 % HEMOGLOBIN [id number] 00:00:00 Test Item Value Reference Range Interpretation Comments HEMOGLOBIN A1c (test code = 86496) 6.4 % HEMOGLOBIN [id number] 00:00:00 Test Item Value Reference Range Interpretation Comments HEMOGLOBIN A1c (test code = 25583) 6.4 % COMPREHENSIVE METABOLIC [id number] 00:00:00 Test Item Value Reference Range Interpretation Comments GLUCOSE (test code = 2217) 206 MG/DL BUN (test code = 2208) 23 MG/DL CREATININE (test code = 2214) 0.67 MG/DL eGFR AMER. (test code 112 ML/MIN/1.73 = 21865) eGFR NON- AMER. (test 97 ML/MIN/1.73 code = 59003) CALC BUN/CREAT (test code = 34 RATIO [...] code = 2219) 25 U/L COMPREHENSIVE METABOLIC [id number] 00:00:00 Test Item Value Reference Range Interpretation Comments GLUCOSE (test code = 2217) 206 MG/DL BUN (test code = 2208) 23 MG/DL CREATININE (test code = 2214) 0.67 MG/DL eGFR AMER. (test code 112 ML/MIN/1.73 = 18003) eGFR NON- AMER. (test 97 ML/MIN/1.73 code = 90528) CALC BUN/CREAT (test code = 34 RATIO [...] ALT (test code = 2219) 25 U/L [id number] 00:00:00 Test Item Value Reference Range Interpretation Comments TSH, THIRD GENERATION (test code 2.490 UIU/ML = 2821) [id number] 00:00:00 Test Item Value Reference Range Interpretation Comments TSH, THIRD GENERATION (test code 2.490 UIU/ML = 2821) [id number] 00:00:00 Test Item Value Reference Range Interpretation Comments TSH, THIRD GENERATION (test code 2.490 UIU/ML = 2821) HEMOGLOBIN [id number] 00:00:00 Test Item Value Reference Range Interpretation Comments HEMOGLOBIN A1c (test code = 91806) 6.4 % HEMOGLOBIN [id number] 00:00:00 Test Item Value Reference Range Interpretation Comments HEMOGLOBIN A1c (test code = 00226) 6.4 % HEMOGLOBIN [id number] 00:00:00 Test Item Value Reference Range Interpretation Comments HEMOGLOBIN A1c (test code = 75510) 6.4 % COMPREHENSIVE METABOLIC [id number] 00:00:00 Test Item Value Reference Range Interpretation Comments GLUCOSE (test code = 2217) 206 MG/DL BUN (test code = 2208) 23 MG/DL CREATININE (test code = 2214) 0.67 MG/DL eGFR AMER. (test code 112 ML/MIN/1.73 = 51210) eGFR NON- AMER. (test 97 ML/MIN/1.73 code = 77581) CALC BUN/CREAT (test code = 34 RATIO [...] code = 2219) 25 U/L COMPREHENSIVE METABOLIC [id number] 00:00:00 Test Item Value Reference Range Interpretation Comments GLUCOSE (test code = 2217) 206 MG/DL BUN (test code = 2208) 23 MG/DL CREATININE (test code = 2214) 0.67 MG/DL eGFR AMER. (test code 112 ML/MIN/1.73 = 75765) eGFR NON- AMER. (test 97 ML/MIN/1.73 code = 67395) CALC BUN/CREAT (test code = 34 RATIO [...] ALT (test code = 2219) 25 U/L [id number] 00:00:00 Test Item Value Reference Range Interpretation Comments TSH, THIRD GENERATION (test code 2.490 UIU/ML = 2821) [id number] 00:00:00 Test Item Value Reference Range Interpretation Comments TSH, THIRD GENERATION (test code 2.490 UIU/ML = 2821) HEMOGLOBIN [id number] 00:00:00 Test Item Value Reference Range Interpretation Comments HEMOGLOBIN A1c (test code = 70559) 6.4 % HEMOGLOBIN [id number] 00:00:00 Test Item Value Reference Range Interpretation Comments HEMOGLOBIN A1c (test code = 15064) 6.4 % COMPREHENSIVE METABOLIC [id number] 00:00:00 Test Item Value Reference Range Interpretation Comments GLUCOSE (test code = 2217) 206 MG/DL BUN (test code = 2208) 23 MG/DL CREATININE (test code = 2214) 0.67 MG/DL eGFR AMER. (test code 112 ML/MIN/1.73 = 94738) eGFR NON- AMER. (test 97 ML/MIN/1.73 code = 27480) CALC BUN/CREAT (test code = 34 RATIO [...] ALT (test code = 2219) 25 U/L [id number] 00:00:00 Test Item Value Reference Range Interpretation Comments TSH, THIRD GENERATION (test code 2.490 UIU/ML = 2821) [id number] 00:00:00 Test Item Value Reference Range Interpretation Comments TSH, THIRD GENERATION (test code 2.490 UIU/ML = 2821) [id number] 00:00:00 Test Item Value Reference Range Interpretation Comments TSH, THIRD GENERATION (test code 2.490 UIU/ML = 2821) HEMOGLOBIN [id number] 00:00:00 Test Item Value Reference Range Interpretation Comments HEMOGLOBIN A1c (test code = 94555) 6.4 % HEMOGLOBIN [id number] 00:00:00 Test Item Value Reference Range Interpretation Comments HEMOGLOBIN A1c (test code = 07112) 6.4 % HEMOGLOBIN [id number] 00:00:00 Test Item Value Reference Range Interpretation Comments HEMOGLOBIN A1c (test code = 09867) 6.4 % COMPREHENSIVE METABOLIC [id number] 00:00:00 Test Item Value Reference Range Interpretation Comments GLUCOSE (test code = 2217) 206 MG/DL BUN (test code = 2208) 23 MG/DL CREATININE (test code = 2214) 0.67 MG/DL eGFR AMER. (test code 112 ML/MIN/1.73 = 34651) eGFR NON- AMER. (test 97 ML/MIN/1.73 code = 38066) CALC BUN/CREAT (test code = 34 RATIO [...] code = 2219) 25 U/L COMPREHENSIVE METABOLIC [id number] 00:00:00 Test Item Value Reference Range Interpretation Comments GLUCOSE (test code = 2217) 206 MG/DL BUN (test code = 2208) 23 MG/DL CREATININE (test code = 2214) 0.67 MG/DL eGFR AMER. (test code 112 ML/MIN/1.73 = 91538) eGFR NON- AMER. (test 97 ML/MIN/1.73 code = 03008) CALC BUN/CREAT (test code = 34 RATIO [...] = 2219) 25 U/L VAGINAL PATHOGENS DNA [id number] 00:00:00 Test Item Value Reference Range Interpretation Comments MARK SPECIES (test code = ) NEGATIVE G. VAGINALIS (test code = 81910) NEGATIVE T. VAGINALIS (test code = 27450) NEGATIVE VAGINAL PATHOGENS DNA [id number] 00:00:00 Test Item Value Reference Range Interpretation Comments MARK SPECIES (test code = 66260) NEGATIVE G. VAGINALIS (test code = 66999) NEGATIVE T. VAGINALIS (test code = 60471) NEGATIVE VAGINAL PATHOGENS DNA [id number] 00:00:00 Test Item Value Reference Range Interpretation Comments MARK SPECIES (test code = 35210) NEGATIVE G. VAGINALIS (test code = 95523) NEGATIVE T. VAGINALIS (test code = 47907) NEGATIVE VAGINAL PATHOGENS DNA [id number] 00:00:00 Test Item Value Reference Range Interpretation Comments MARK SPECIES (test code = 60497) NEGATIVE G. VAGINALIS (test code = 94385) NEGATIVE T. VAGINALIS (test code = 92405) NEGATIVE VAGINAL PATHOGENS DNA [id number] 00:00:00 Test Item Value Reference Range Interpretation Comments MARK SPECIES (test code = 23865) NEGATIVE G. VAGINALIS (test code = 00321) NEGATIVE T. VAGINALIS (test code = 76855) NEGATIVE VAGINAL PATHOGENS DNA [id number] 00:00:00 Test Item Value Reference Range Interpretation Comments MARK SPECIES (test code = 62291) NEGATIVE G. VAGINALIS (test code = 45771) NEGATIVE T. VAGINALIS (test code = 75252) NEGATIVE VAGINAL PATHOGENS DNA [id number] 00:00:00 Test Item Value Reference Range Interpretation Comments MARK SPECIES (test code = ) NEGATIVE G. VAGINALIS (test code = ) NEGATIVE T. VAGINALIS (test code = ) NEGATIVE HEMOGLOBIN A1c [ADDED]2018-12-01 00:00:00 Test Item Value Reference Range Interpretation Comments HEMOGLOBIN A1c (test code = 24393) 6.7 % HEMOGLOBIN A1c [ADDED]2018-12-01 00:00:00 Test Item Value Reference Range Interpretation Comments HEMOGLOBIN A1c (test code = 69510) 6.7 % HEMOGLOBIN A1c [ADDED]2018-12-01 00:00:00 Test Item Value Reference Range Interpretation Comments HEMOGLOBIN A1c (test code = 01207) 6.7 % COMPREHENSIVE METABOLIC PANEL [ADDED]2018-12-01 00:00:00 Test Item Value Reference Range Interpretation Comments GLUCOSE (test code = 2217) 136 MG/DL BUN (test code = 2208) 15 MG/DL CREATININE (test code = 2214) 0.64 MG/DL eGFR AMER. (test code 115 ML/MIN/1.73 = 22639) eGFR NON- AMER. (test 99 ML/MIN/1.73 code = 56353) CALC BUN/CREAT (test code = 23 RATIO [...] eGFR AMER. (test code 115 ML/MIN/1.73 = 53898) eGFR NON- AMER. (test 99 ML/MIN/1.73 code = 57845) CALC BUN/CREAT (test code = 23 RATIO [...] Interpretation Comments HEMOGLOBIN A1c (test code = 16968) 6.7 % HEMOGLOBIN A1c [ADDED]2018-12-01 00:00:00 Test Item Value Reference Range Interpretation Comments HEMOGLOBIN A1c (test code = 50857) 6.7 % HEMOGLOBIN A1c [ADDED]2018-12-01 00:00:00 Test Item Value Reference Range Interpretation Comments HEMOGLOBIN A1c (test code = 36673) 6.7 % COMPREHENSIVE METABOLIC PANEL [ADDED]2018-12-01 00:00:00 Test Item Value Reference Range Interpretation Comments GLUCOSE (test code = 2217) 136 MG/DL BUN (test code = 2208) 15 MG/DL CREATININE (test code = 2214) 0.64 MG/DL eGFR AMER. (test code 115 ML/MIN/1.73 = 26124) eGFR NON- AMER. (test 99 ML/MIN/1.73 code = 19874) CALC BUN/CREAT (test code = 23 RATIO [...] eGFR AMER. (test code 115 ML/MIN/1.73 = 25501) eGFR NON- AMER. (test 99 ML/MIN/1.73 code = 78807) CALC BUN/CREAT (test code = 23 RATIO [...] Interpretation Comments HEMOGLOBIN A1c (test code = 54066) 6.7 % HEMOGLOBIN A1c [ADDED]2018-12-01 00:00:00 Test Item Value Reference Range Interpretation Comments HEMOGLOBIN A1c (test code = 79685) 6.7 % COMPREHENSIVE METABOLIC PANEL [ADDED]2018-12-01 00:00:00 Test Item Value Reference Range Interpretation Comments GLUCOSE (test code = 2217) 136 MG/DL BUN (test code = 2208) 15 MG/DL CREATININE (test code = 2214) 0.64 MG/DL eGFR AMER. (test code 115 ML/MIN/1.73 = 88294) eGFR NON- AMER. (test 99 ML/MIN/1.73 code = 53604) CALC BUN/CREAT (test code = 23 RATIO [...] Interpretation Comments HEMOGLOBIN A1c (test code = 53712) 6.7 % HEMOGLOBIN A1c [ADDED]2018-12-01 00:00:00 Test Item Value Reference Range Interpretation Comments HEMOGLOBIN A1c (test code = 93230) 6.7 % HEMOGLOBIN A1c [ADDED]2018-12-01 00:00:00 Test Item Value Reference Range Interpretation Comments HEMOGLOBIN A1c (test code = 54444) 6.7 % COMPREHENSIVE METABOLIC PANEL [ADDED]2018-12-01 00:00:00 Test Item Value Reference Range Interpretation Comments GLUCOSE (test code = 2217) 136 MG/DL BUN (test code = 2208) 15 MG/DL CREATININE (test code = 2214) 0.64 MG/DL eGFR AMER. (test code 115 ML/MIN/1.73 = 37263) eGFR NON- AMER. (test 99 ML/MIN/1.73 code = 23950) CALC BUN/CREAT (test code = 23 RATIO [...] eGFR AMER. (test code 115 ML/MIN/1.73 = 62245) eGFR NON- AMER. (test 99 ML/MIN/1.73 code = 56305) CALC BUN/CREAT (test code = 23 RATIO [...] code 1.280 UIU/ML = 2821) CBC W/AUTO [id number] 00:00:00 Test Item Value Reference Range Interpretation [...] code = 1015) 346 K/UL CBC W/AUTO [id number] 00:00:00 Test Item Value Reference Range Interpretation [...] code = 1015) 346 K/UL CBC W/AUTO [id number] 00:00:00 Test Item Value Reference Range Interpretation [...] (test code = 1015) 346 K/UL HEMOGLOBIN [id number] 00:00:00 Test Item Value Reference Range Interpretation Comments HEMOGLOBIN A1c (test code = 90527) 5.9 % HEMOGLOBIN [id number] 00:00:00 Test Item Value Reference Range Interpretation Comments HEMOGLOBIN A1c (test code = 18607) 5.9 % HEMOGLOBIN [id number] 00:00:00 Test Item Value Reference Range Interpretation Comments HEMOGLOBIN A1c (test code = 88770) 5.9 % LIPID [id number] 00:00:00 Test Item Value Reference Range Interpretation Comments CHOLESTEROL (test code = 2210) 318 MG/DL TRIGLYCERIDES (test code = 2232) 263 MG/DL HDL CHOLESTEROL (test code = 2220) 51 MG/DL CALC LDL CHOL (test code = 2237) 214 MG/DL RISK RATIO LDL/HDL (test code = 4.20 RATIO 2238) LIPID [id number] 00:00:00 Test Item Value Reference Range Interpretation Comments CHOLESTEROL (test code = 2210) 318 MG/DL TRIGLYCERIDES (test code = 2232) 263 MG/DL HDL CHOLESTEROL (test code = 2220) 51 MG/DL CALC LDL CHOL (test code = 2237) 214 MG/DL RISK RATIO LDL/HDL (test code = 4.20 RATIO 2238) COMPREHENSIVE METABOLIC [id number] 00:00:00 Test Item Value Reference Range Interpretation Comments GLUCOSE (test code = 2217) 113 MG/DL BUN (test code = 2208) 18 MG/DL CREATININE (test code = 2214) 0.70 MG/DL eGFR AMER. (test code 111 ML/MIN/1.73 = 85719) eGFR NON- AMER. (test 96 ML/MIN/1.73 code = 19918) CALC BUN/CREAT (test code = 26 RATIO [...] code = 2219) 31 U/L COMPREHENSIVE METABOLIC [id number] 00:00:00 Test Item Value Reference Range Interpretation Comments GLUCOSE (test code = 2217) 113 MG/DL BUN (test code = 2208) 18 MG/DL CREATININE (test code = 2214) 0.70 MG/DL eGFR AMER. (test code 111 ML/MIN/1.73 = 63567) eGFR NON- AMER. (test 96 ML/MIN/1.73 code = 14009) CALC BUN/CREAT (test code = 26 RATIO [...] ALT (test code = 2219) 31 U/L [id number] 00:00:00 Test Item Value Reference Range Interpretation Comments TSH, THIRD GENERATION (test code 2.520 UIU/ML = 2821) [id number] 00:00:00 Test Item Value Reference Range Interpretation Comments TSH, THIRD GENERATION (test code 2.520 UIU/ML = 2821) [id number] 00:00:00 Test Item Value Reference Range Interpretation Comments TSH, THIRD GENERATION (test code 2.520 UIU/ML = 2821) CBC W/AUTO [id number] 00:00:00 Test Item Value Reference Range Interpretation [...] code = 1015) 346 K/UL CBC W/AUTO [id number] 00:00:00 Test Item Value Reference Range Interpretation [...] code = 1015) 346 K/UL CBC W/AUTO [id number] 00:00:00 Test Item Value Reference Range Interpretation [...] (test code = 1015) 346 K/UL HEMOGLOBIN [id number] 00:00:00 Test Item Value Reference Range Interpretation Comments HEMOGLOBIN A1c (test code = 66356) 5.9 % HEMOGLOBIN [id number] 00:00:00 Test Item Value Reference Range Interpretation Comments HEMOGLOBIN A1c (test code = 00791) 5.9 % HEMOGLOBIN [id number] 00:00:00 Test Item Value Reference Range Interpretation Comments HEMOGLOBIN A1c (test code = 51396) 5.9 % LIPID [id number] 00:00:00 Test Item Value Reference Range Interpretation Comments CHOLESTEROL (test code = 2210) 318 MG/DL TRIGLYCERIDES (test code = 2232) 263 MG/DL HDL CHOLESTEROL (test code = 2220) 51 MG/DL CALC LDL CHOL (test code = 2237) 214 MG/DL RISK RATIO LDL/HDL (test code = 4.20 RATIO 2238) LIPID [id number] 00:00:00 Test Item Value Reference Range Interpretation Comments CHOLESTEROL (test code = 2210) 318 MG/DL TRIGLYCERIDES (test code = 2232) 263 MG/DL HDL CHOLESTEROL (test code = 2220) 51 MG/DL CALC LDL CHOL (test code = 2237) 214 MG/DL RISK RATIO LDL/HDL (test code = 4.20 RATIO 2238) COMPREHENSIVE METABOLIC [id number] 00:00:00 Test Item Value Reference Range Interpretation Comments GLUCOSE (test code = 2217) 113 MG/DL BUN (test code = 2208) 18 MG/DL CREATININE (test code = 2214) 0.70 MG/DL eGFR AMER. (test code 111 ML/MIN/1.73 = 02427) eGFR NON- AMER. (test 96 ML/MIN/1.73 code = 83909) CALC BUN/CREAT (test code = 26 RATIO [...] code = 2219) 31 U/L COMPREHENSIVE METABOLIC [id number] 00:00:00 Test Item Value Reference Range Interpretation Comments GLUCOSE (test code = 2217) 113 MG/DL BUN (test code = 2208) 18 MG/DL CREATININE (test code = 2214) 0.70 MG/DL eGFR AMER. (test code 111 ML/MIN/1.73 = 36160) eGFR NON- AMER. (test 96 ML/MIN/1.73 code = 43396) CALC BUN/CREAT (test code = 26 RATIO [...] ALT (test code = 2219) 31 U/L [id number] 00:00:00 Test Item Value Reference Range Interpretation Comments TSH, THIRD GENERATION (test code 2.520 UIU/ML = 2821) [id number] 00:00:00 Test Item Value Reference Range Interpretation Comments TSH, THIRD GENERATION (test code 2.520 UIU/ML = 2821) [id number] 00:00:00 Test Item Value Reference Range Interpretation Comments TSH, THIRD GENERATION (test code 2.520 UIU/ML = 2821) CBC W/AUTO [id number] 00:00:00 Test Item Value Reference Range Interpretation [...] code = 1015) 346 K/UL CBC W/AUTO [id number] 00:00:00 Test Item Value Reference Range Interpretation [...] (test code = 1015) 346 K/UL HEMOGLOBIN [id number] 00:00:00 Test Item Value Reference Range Interpretation Comments HEMOGLOBIN A1c (test code = 01863) 5.9 % HEMOGLOBIN [id number] 00:00:00 Test Item Value Reference Range Interpretation Comments HEMOGLOBIN A1c (test code = 79941) 5.9 % LIPID [id number] 00:00:00 Test Item Value Reference Range Interpretation Comments CHOLESTEROL (test code = 2210) 318 MG/DL TRIGLYCERIDES (test code = 2232) 263 MG/DL HDL CHOLESTEROL (test code = 2220) 51 MG/DL CALC LDL CHOL (test code = 2237) 214 MG/DL RISK RATIO LDL/HDL (test code = 4.20 RATIO 2238) COMPREHENSIVE METABOLIC [id number] 00:00:00 Test Item Value Reference Range Interpretation Comments GLUCOSE (test code = 2217) 113 MG/DL BUN (test code = 2208) 18 MG/DL CREATININE (test code = 2214) 0.70 MG/DL eGFR AMER. (test code 111 ML/MIN/1.73 = 25001) eGFR NON- AMER. (test 96 ML/MIN/1.73 code = 05458) CALC BUN/CREAT (test code = 26 RATIO [...] ALT (test code = 2219) 31 U/L [id number] 00:00:00 Test Item Value Reference Range Interpretation Comments TSH, THIRD GENERATION (test code 2.520 UIU/ML = 2821) [id number] 00:00:00 Test Item Value Reference Range Interpretation Comments TSH, THIRD GENERATION (test code 2.520 UIU/ML = 2821) CBC W/AUTO [id number] 00:00:00 Test Item Value Reference Range Interpretation [...] code = 1015) 346 K/UL CBC W/AUTO [id number] 00:00:00 Test Item Value Reference Range Interpretation [...] code = 1015) 346 K/UL CBC W/AUTO [id number] 00:00:00 Test Item Value Reference Range Interpretation [...] (test code = 1015) 346 K/UL HEMOGLOBIN [id number] 00:00:00 Test Item Value Reference Range Interpretation Comments HEMOGLOBIN A1c (test code = 24604) 5.9 % HEMOGLOBIN [id number] 00:00:00 Test Item Value Reference Range Interpretation Comments HEMOGLOBIN A1c (test code = 48663) 5.9 % HEMOGLOBIN [id number] 00:00:00 Test Item Value Reference Range Interpretation Comments HEMOGLOBIN A1c (test code = 05708) 5.9 % LIPID [id number] 00:00:00 Test Item Value Reference Range Interpretation Comments CHOLESTEROL (test code = 2210) 318 MG/DL TRIGLYCERIDES (test code = 2232) 263 MG/DL HDL CHOLESTEROL (test code = 2220) 51 MG/DL CALC LDL CHOL (test code = 2237) 214 MG/DL RISK RATIO LDL/HDL (test code = 4.20 RATIO 2238) LIPID [id number] 00:00:00 Test Item Value Reference Range Interpretation Comments CHOLESTEROL (test code = 2210) 318 MG/DL TRIGLYCERIDES (test code = 2232) 263 MG/DL HDL CHOLESTEROL (test code = 2220) 51 MG/DL CALC LDL CHOL (test code = 2237) 214 MG/DL RISK RATIO LDL/HDL (test code = 4.20 RATIO 2238) COMPREHENSIVE METABOLIC [id number] 00:00:00 Test Item Value Reference Range Interpretation Comments GLUCOSE (test code = 2217) 113 MG/DL BUN (test code = 2208) 18 MG/DL CREATININE (test code = 2214) 0.70 MG/DL eGFR AMER. (test code 111 ML/MIN/1.73 = 50027) eGFR NON- AMER. (test 96 ML/MIN/1.73 code = 72852) CALC BUN/CREAT (test code = 26 RATIO [...] code = 2219) 31 U/L COMPREHENSIVE METABOLIC [id number] 00:00:00 Test Item Value Reference Range Interpretation Comments GLUCOSE (test code = 2217) 113 MG/DL BUN (test code = 2208) 18 MG/DL CREATININE (test code = 2214) 0.70 MG/DL eGFR AMER. (test code 111 ML/MIN/1.73 = 29119) eGFR NON- AMER. (test 96 ML/MIN/1.73 code = 71689) CALC BUN/CREAT (test code = 26 RATIO [...] ALT (test code = 2219) 31 U/L [id number] 00:00:00 Test Item Value Reference Range Interpretation Comments TSH, THIRD GENERATION (test code 2.520 UIU/ML = 2821) [id number] 00:00:00 Test Item Value Reference Range Interpretation Comments TSH, THIRD GENERATION (test code 2.520 UIU/ML = 2821) [id number] 00:00:00 Test Item Value Reference Range Interpretation Comments TSH, THIRD GENERATION (test code 2.520 UIU/ML = 2821) CULTURE, [id number] 00:00:00 Test Item Value Reference Range Interpretation Comments CULTURE, URINE (test SPECIMEN NUMBER: code = 37689) [id number] CULTURE, [id number] 00:00:00 Test Item Value Reference Range Interpretation Comments CULTURE, URINE (test SPECIMEN NUMBER: code = 06469) [id number] CULTURE, [id number] 00:00:00 Test Item Value Reference Range Interpretation Comments CULTURE, URINE (test SPECIMEN NUMBER: code = 03073) [id number] CULTURE, [id number] 00:00:00 Test Item Value Reference Range Interpretation Comments CULTURE, URINE (test SPECIMEN NUMBER: code = 48464) [id number] CULTURE, [id number] 00:00:00 Test Item Value Reference Range Interpretation Comments CULTURE, URINE (test SPECIMEN NUMBER: code = 57142) [id number] CULTURE, [id number] 00:00:00 Test Item Value Reference Range Interpretation Comments CULTURE, URINE (test SPECIMEN NUMBER: code = 03992) [id number] CULTURE, [id number] 00:00:00 Test Item Value Reference Range Interpretation Comments CULTURE, URINE (test SPECIMEN NUMBER: code = 76419) [id number] CULTURE, [id number] 00:00:00 Test Item Value Reference Range Interpretation Comments CULTURE, URINE (test SPECIMEN NUMBER: code = 50399) [id number] CULTURE, [id number] 00:00:00 Test Item Value Reference Range Interpretation Comments CULTURE, URINE (test SPECIMEN NUMBER: code = 62134) [id number] CULTURE, [id number] 00:00:00 Test Item Value Reference Range Interpretation Comments CULTURE, URINE (test SPECIMEN NUMBER: code = 74897) [id number] CULTURE, [id number] 00:00:00 Test Item Value Reference Range Interpretation Comments CULTURE, URINE (test SPECIMEN NUMBER: code = 00015) [id number] CULTURE, [id number] 00:00:00 Test Item Value Reference Range Interpretation Comments CULTURE, URINE (test SPECIMEN NUMBER: code = 82332) [id number] CULTURE, [id number] 00:00:00 Test Item Value Reference Range Interpretation Comments CULTURE, URINE (test SPECIMEN NUMBER: code = 50557) [id number] CULTURE, [id number] 00:00:00 Test Item Value Reference Range Interpretation Comments CULTURE, URINE (test SPECIMEN NUMBER: code = 32929) [id number] BASIC METABOLIC [id number] 00:00:00 Test Item Value Reference Range Interpretation Comments GLUCOSE (test code = 2217) 135 MG/DL BUN (test code = 2208) 25 MG/DL CREATININE (test code = 2214) 0.76 MG/DL eGFR AMER. (test code 101 ML/MIN/1.73 = 58928) eGFR NON- AMER. (test 87 ML/MIN/1.73 code = 76399) SODIUM (test code = 2231) 139 MEQ/L POTASSIUM (test code = 2228) 4.7 MEQ/L CHLORIDE (test code = 2215) 99 MEQ/L CARBON DIOXIDE (test code = 26 MEQ/L 2206) CALCIUM (test code = 2209) 9.4 MG/DL BASIC METABOLIC [id number] 00:00:00 Test Item Value Reference Range Interpretation Comments GLUCOSE (test code = 2217) 135 MG/DL BUN (test code = 2208) 25 MG/DL CREATININE (test code = 2214) 0.76 MG/DL eGFR AMER. (test code 101 ML/MIN/1.73 = 68039) eGFR NON- AMER. (test 87 ML/MIN/1.73 code = 06971) SODIUM (test code = 2231) 139 MEQ/L POTASSIUM (test code = 2228) 4.7 MEQ/L CHLORIDE (test code = 2215) 99 MEQ/L CARBON DIOXIDE (test code = 26 MEQ/L 2206) CALCIUM (test code = 2209) 9.4 MG/DL LIPID [id number] 00:00:00 Test Item Value Reference Range Interpretation Comments CHOLESTEROL (test code = 2210) 262 MG/DL TRIGLYCERIDES (test code = 2232) 300 MG/DL HDL CHOLESTEROL (test code = 2220) 36 MG/DL CALC LDL CHOL (test code = 2237) 166 MG/DL RISK RATIO LDL/HDL (test code = 4.61 RATIO 2238) LIPID [id number] 00:00:00 Test Item Value Reference Range Interpretation Comments CHOLESTEROL (test code = 2210) 262 MG/DL TRIGLYCERIDES (test code = 2232) 300 MG/DL HDL CHOLESTEROL (test code = 2220) 36 MG/DL CALC LDL CHOL (test code = 2237) 166 MG/DL RISK RATIO LDL/HDL (test code = 4.61 RATIO 2238) HEMOGLOBIN [id number] 00:00:00 Test Item Value Reference Range Interpretation Comments HEMOGLOBIN A1c (test code = 39860) 6.2 % HEMOGLOBIN [id number] 00:00:00 Test Item Value Reference Range Interpretation Comments HEMOGLOBIN A1c (test code = 56906) 6.2 % HEMOGLOBIN [id number] 00:00:00 Test Item Value Reference Range Interpretation Comments HEMOGLOBIN A1c (test code = 39594) 6.2 % [id number] 00:00:00 Test Item Value Reference Range Interpretation Comments TSH, THIRD GENERATION (test code 0.988 UIU/ML = 2821) [id number] 00:00:00 Test Item Value Reference Range Interpretation Comments TSH, THIRD GENERATION (test code 0.988 UIU/ML = 2821) [id number] 00:00:00 Test Item Value Reference Range Interpretation Comments TSH, THIRD GENERATION (test code 0.988 UIU/ML = 2821) BASIC METABOLIC [id number] 00:00:00 Test Item Value Reference Range Interpretation Comments GLUCOSE (test code = 2217) 135 MG/DL BUN (test code = 2208) 25 MG/DL CREATININE (test code = 2214) 0.76 MG/DL eGFR AMER. (test code 101 ML/MIN/1.73 = 93126) eGFR NON- AMER. (test 87 ML/MIN/1.73 code = 52333) SODIUM (test code = 2231) 139 MEQ/L POTASSIUM (test code = 2228) 4.7 MEQ/L CHLORIDE (test code = 2215) 99 MEQ/L CARBON DIOXIDE (test code = 26 MEQ/L 2206) CALCIUM (test code = 2209) 9.4 MG/DL BASIC METABOLIC [id number] 00:00:00 Test Item Value Reference Range Interpretation Comments GLUCOSE (test code = 2217) 135 MG/DL BUN (test code = 2208) 25 MG/DL CREATININE (test code = 2214) 0.76 MG/DL eGFR AMER. (test code 101 ML/MIN/1.73 = 60587) eGFR NON- AMER. (test 87 ML/MIN/1.73 code = 46416) SODIUM (test code = 2231) 139 MEQ/L POTASSIUM (test code = 2228) 4.7 MEQ/L CHLORIDE (test code = 2215) 99 MEQ/L CARBON DIOXIDE (test code = 26 MEQ/L 2206) CALCIUM (test code = 2209) 9.4 MG/DL LIPID [id number] 00:00:00 Test Item Value Reference Range Interpretation Comments CHOLESTEROL (test code = 2210) 262 MG/DL TRIGLYCERIDES (test code = 2232) 300 MG/DL HDL CHOLESTEROL (test code = 2220) 36 MG/DL CALC LDL CHOL (test code = 2237) 166 MG/DL RISK RATIO LDL/HDL (test code = 4.61 RATIO 2238) LIPID [id number] 00:00:00 Test Item Value Reference Range Interpretation Comments CHOLESTEROL (test code = 2210) 262 MG/DL TRIGLYCERIDES (test code = 2232) 300 MG/DL HDL CHOLESTEROL (test code = 2220) 36 MG/DL CALC LDL CHOL (test code = 2237) 166 MG/DL RISK RATIO LDL/HDL (test code = 4.61 RATIO 2238) HEMOGLOBIN [id number] 00:00:00 Test Item Value Reference Range Interpretation Comments HEMOGLOBIN A1c (test code = 60999) 6.2 % HEMOGLOBIN [id number] 00:00:00 Test Item Value Reference Range Interpretation Comments HEMOGLOBIN A1c (test code = 08415) 6.2 % HEMOGLOBIN [id number] 00:00:00 Test Item Value Reference Range Interpretation Comments HEMOGLOBIN A1c (test code = 55126) 6.2 % [id number] 00:00:00 Test Item Value Reference Range Interpretation Comments TSH, THIRD GENERATION (test code 0.988 UIU/ML = 2821) [id number] 00:00:00 Test Item Value Reference Range Interpretation Comments TSH, THIRD GENERATION (test code 0.988 UIU/ML = 2821) [id number] 00:00:00 Test Item Value Reference Range Interpretation Comments TSH, THIRD GENERATION (test code 0.988 UIU/ML = 2821) BASIC METABOLIC [id number] 00:00:00 Test Item Value Reference Range Interpretation Comments GLUCOSE (test code = 2217) 135 MG/DL BUN (test code = 2208) 25 MG/DL CREATININE (test code = 2214) 0.76 MG/DL eGFR AMER. (test code 101 ML/MIN/1.73 = 40010) eGFR NON- AMER. (test 87 ML/MIN/1.73 code = 56985) SODIUM (test code = 2231) 139 MEQ/L POTASSIUM (test code = 2228) 4.7 MEQ/L CHLORIDE (test code = 2215) 99 MEQ/L CARBON DIOXIDE (test code = 26 MEQ/L 2206) CALCIUM (test code = 2209) 9.4 MG/DL LIPID [id number] 00:00:00 Test Item Value Reference Range Interpretation Comments CHOLESTEROL (test code = 2210) 262 MG/DL TRIGLYCERIDES (test code = 2232) 300 MG/DL HDL CHOLESTEROL (test code = 2220) 36 MG/DL CALC LDL CHOL (test code = 2237) 166 MG/DL RISK RATIO LDL/HDL (test code = 4.61 RATIO 2238) HEMOGLOBIN [id number] 00:00:00 Test Item Value Reference Range Interpretation Comments HEMOGLOBIN A1c (test code = 59059) 6.2 % HEMOGLOBIN [id number] 00:00:00 Test Item Value Reference Range Interpretation Comments HEMOGLOBIN A1c (test code = 61194) 6.2 % [id number] 00:00:00 Test Item Value Reference Range Interpretation Comments TSH, THIRD GENERATION (test code 0.988 UIU/ML = 2821) [id number] 00:00:00 Test Item Value Reference Range Interpretation Comments TSH, THIRD GENERATION (test code 0.988 UIU/ML = 2821) BASIC METABOLIC [id number] 00:00:00 Test Item Value Reference Range Interpretation Comments GLUCOSE (test code = 2217) 135 MG/DL BUN (test code = 2208) 25 MG/DL CREATININE (test code = 2214) 0.76 MG/DL eGFR AMER. (test code 101 ML/MIN/1.73 = 97229) eGFR NON- AMER. (test 87 ML/MIN/1.73 code = 71370) SODIUM (test code = 2231) 139 MEQ/L POTASSIUM (test code = 2228) 4.7 MEQ/L CHLORIDE (test code = 2215) 99 MEQ/L CARBON DIOXIDE (test code = 26 MEQ/L 2206) CALCIUM (test code = 2209) 9.4 MG/DL BASIC METABOLIC [id number] 00:00:00 Test Item Value Reference Range Interpretation Comments GLUCOSE (test code = 2217) 135 MG/DL BUN (test code = 2208) 25 MG/DL CREATININE (test code = 2214) 0.76 MG/DL eGFR AMER. (test code 101 ML/MIN/1.73 = 75970) eGFR NON- AMER. (test 87 ML/MIN/1.73 code = 71044) SODIUM (test code = 2231) 139 MEQ/L POTASSIUM (test code = 2228) 4.7 MEQ/L CHLORIDE (test code = 2215) 99 MEQ/L CARBON DIOXIDE (test code = 26 MEQ/L 2206) CALCIUM (test code = 2209) 9.4 MG/DL LIPID [id number] 00:00:00 Test Item Value Reference Range Interpretation Comments CHOLESTEROL (test code = 2210) 262 MG/DL TRIGLYCERIDES (test code = 2232) 300 MG/DL HDL CHOLESTEROL (test code = 2220) 36 MG/DL CALC LDL CHOL (test code = 2237) 166 MG/DL RISK RATIO LDL/HDL (test code = 4.61 RATIO 2238) LIPID [id number] 00:00:00 Test Item Value Reference Range Interpretation Comments CHOLESTEROL (test code = 2210) 262 MG/DL TRIGLYCERIDES (test code = 2232) 300 MG/DL HDL CHOLESTEROL (test code = 2220) 36 MG/DL CALC LDL CHOL (test code = 2237) 166 MG/DL RISK RATIO LDL/HDL (test code = 4.61 RATIO 2238) HEMOGLOBIN [id number] 00:00:00 Test Item Value Reference Range Interpretation Comments HEMOGLOBIN A1c (test code = 30924) 6.2 % HEMOGLOBIN [id number] 00:00:00 Test Item Value Reference Range Interpretation Comments HEMOGLOBIN A1c (test code = 38387) 6.2 % HEMOGLOBIN [id number] 00:00:00 Test Item Value Reference Range Interpretation Comments HEMOGLOBIN A1c (test code = 35469) 6.2 % [id number] 00:00:00 Test Item Value Reference Range Interpretation Comments TSH, THIRD GENERATION (test code 0.988 UIU/ML = 2821) [id number] 00:00:00 Test Item Value Reference Range Interpretation Comments TSH, THIRD GENERATION (test code 0.988 UIU/ML = 2821) [id number] 00:00:00 Test Item Value Reference Range Interpretation Comments TSH, THIRD GENERATION (test code 0.988 UIU/ML = 2821) COMPREHENSIVE METABOLIC [id number] 00:00:00 Test Item Value Reference Range Interpretation Comments GLUCOSE (test code = 2217) 109 MG/DL BUN (test code = 2208) 25 MG/DL CREATININE (test code = 2214) 0.78 MG/DL eGFR AMER. (test code 98 ML/MIN/1.73 = 26352) eGFR NON- AMER. (test 84 ML/MIN/1.73 code = 25826) CALC BUN/CREAT (test code = 32 RATIO [...] code = 2219) 25 U/L COMPREHENSIVE METABOLIC [id number] 00:00:00 Test Item Value Reference Range Interpretation Comments GLUCOSE (test code = 2217) 109 MG/DL BUN (test code = 2208) 25 MG/DL CREATININE (test code = 2214) 0.78 MG/DL eGFR AMER. (test code 98 ML/MIN/1.73 = 41642) eGFR NON- AMER. (test 84 ML/MIN/1.73 code = 78438) CALC BUN/CREAT (test code = 32 RATIO [...] (test code = 2219) 25 U/L LIPID [id number] 00:00:00 Test Item Value Reference Range Interpretation Comments CHOLESTEROL (test code = 2210) 295 MG/DL TRIGLYCERIDES (test code = 2232) 218 MG/DL HDL CHOLESTEROL (test code = 2220) 46 MG/DL CALC LDL CHOL (test code = 2237) 205 MG/DL RISK RATIO LDL/HDL (test code = 4.47 RATIO 2238) LIPID [id number] 00:00:00 Test Item Value Reference Range Interpretation Comments CHOLESTEROL (test code = 2210) 295 MG/DL TRIGLYCERIDES (test code = 2232) 218 MG/DL HDL CHOLESTEROL (test code = 2220) 46 MG/DL CALC LDL CHOL (test code = 2237) 205 MG/DL RISK RATIO LDL/HDL (test code = 4.47 RATIO 2238) HEMOGLOBIN [id number] 00:00:00 Test Item Value Reference Range Interpretation Comments HEMOGLOBIN A1c (test code = 88475) 7.0 % HEMOGLOBIN [id number] 00:00:00 Test Item Value Reference Range Interpretation Comments HEMOGLOBIN A1c (test code = 81727) 7.0 % HEMOGLOBIN [id number] 00:00:00 Test Item Value Reference Range Interpretation Comments HEMOGLOBIN A1c (test code = 80910) 7.0 % [id number] 00:00:00 Test Item Value Reference Range Interpretation Comments TSH, THIRD GENERATION (test code 0.565 UIU/ML = 2821) [id number] 00:00:00 Test Item Value Reference Range Interpretation Comments TSH, THIRD GENERATION (test code 0.565 UIU/ML = 2821) [id number] 00:00:00 Test Item Value Reference Range Interpretation Comments TSH, THIRD GENERATION (test code 0.565 UIU/ML = 2821) COMPREHENSIVE METABOLIC [id number] 00:00:00 Test Item Value Reference Range Interpretation Comments GLUCOSE (test code = 2217) 109 MG/DL BUN (test code = 2208) 25 MG/DL CREATININE (test code = 2214) 0.78 MG/DL eGFR AMER. (test code 98 ML/MIN/1.73 = 91628) eGFR NON- AMER. (test 84 ML/MIN/1.73 code = 63327) CALC BUN/CREAT (test code = 32 RATIO [...] code = 2219) 25 U/L COMPREHENSIVE METABOLIC [id number] 00:00:00 Test Item Value Reference Range Interpretation Comments GLUCOSE (test code = 2217) 109 MG/DL BUN (test code = 2208) 25 MG/DL CREATININE (test code = 2214) 0.78 MG/DL eGFR AMER. (test code 98 ML/MIN/1.73 = 59217) eGFR NON- AMER. (test 84 ML/MIN/1.73 code = 03137) CALC BUN/CREAT (test code = 32 RATIO [...] (test code = 2219) 25 U/L LIPID [id number] 00:00:00 Test Item Value Reference Range Interpretation Comments CHOLESTEROL (test code = 2210) 295 MG/DL TRIGLYCERIDES (test code = 2232) 218 MG/DL HDL CHOLESTEROL (test code = 2220) 46 MG/DL CALC LDL CHOL (test code = 2237) 205 MG/DL RISK RATIO LDL/HDL (test code = 4.47 RATIO 2238) LIPID [id number] 00:00:00 Test Item Value Reference Range Interpretation Comments CHOLESTEROL (test code = 2210) 295 MG/DL TRIGLYCERIDES (test code = 2232) 218 MG/DL HDL CHOLESTEROL (test code = 2220) 46 MG/DL CALC LDL CHOL (test code = 2237) 205 MG/DL RISK RATIO LDL/HDL (test code = 4.47 RATIO 2238) HEMOGLOBIN [id number] 00:00:00 Test Item Value Reference Range Interpretation Comments HEMOGLOBIN A1c (test code = 20122) 7.0 % HEMOGLOBIN [id number] 00:00:00 Test Item Value Reference Range Interpretation Comments HEMOGLOBIN A1c (test code = 51713) 7.0 % HEMOGLOBIN [id number] 00:00:00 Test Item Value Reference Range Interpretation Comments HEMOGLOBIN A1c (test code = 72447) 7.0 % [id number] 00:00:00 Test Item Value Reference Range Interpretation Comments TSH, THIRD GENERATION (test code 0.565 UIU/ML = 2821) [id number] 00:00:00 Test Item Value Reference Range Interpretation Comments TSH, THIRD GENERATION (test code 0.565 UIU/ML = 2821) [id number] 00:00:00 Test Item Value Reference Range Interpretation Comments TSH, THIRD GENERATION (test code 0.565 UIU/ML = 2821) COMPREHENSIVE METABOLIC [id number] 00:00:00 Test Item Value Reference Range Interpretation Comments GLUCOSE (test code = 2217) 109 MG/DL BUN (test code = 2208) 25 MG/DL CREATININE (test code = 2214) 0.78 MG/DL eGFR AMER. (test code 98 ML/MIN/1.73 = 28971) eGFR NON- AMER. (test 84 ML/MIN/1.73 code = 67210) CALC BUN/CREAT (test code = 32 RATIO [...] (test code = 2219) 25 U/L LIPID [id number] 00:00:00 Test Item Value Reference Range Interpretation Comments CHOLESTEROL (test code = 2210) 295 MG/DL TRIGLYCERIDES (test code = 2232) 218 MG/DL HDL CHOLESTEROL (test code = 2220) 46 MG/DL CALC LDL CHOL (test code = 2237) 205 MG/DL RISK RATIO LDL/HDL (test code = 4.47 RATIO 2238) HEMOGLOBIN [id number] 00:00:00 Test Item Value Reference Range Interpretation Comments HEMOGLOBIN A1c (test code = 03014) 7.0 % HEMOGLOBIN [id number] 00:00:00 Test Item Value Reference Range Interpretation Comments HEMOGLOBIN A1c (test code = 64831) 7.0 % [id number] 00:00:00 Test Item Value Reference Range Interpretation Comments TSH, THIRD GENERATION (test code 0.565 UIU/ML = 2821) [id number] 00:00:00 Test Item Value Reference Range Interpretation Comments TSH, THIRD GENERATION (test code 0.565 UIU/ML = 2821) COMPREHENSIVE METABOLIC [id number] 00:00:00 Test Item Value Reference Range Interpretation Comments GLUCOSE (test code = 2217) 109 MG/DL BUN (test code = 2208) 25 MG/DL CREATININE (test code = 2214) 0.78 MG/DL eGFR AMER. (test code 98 ML/MIN/1.73 = 85818) eGFR NON- AMER. (test 84 ML/MIN/1.73 code = 23771) CALC BUN/CREAT (test code = 32 RATIO [...] code = 2219) 25 U/L COMPREHENSIVE METABOLIC [id number] 00:00:00 Test Item Value Reference Range Interpretation Comments GLUCOSE (test code = 2217) 109 MG/DL BUN (test code = 2208) 25 MG/DL CREATININE (test code = 2214) 0.78 MG/DL eGFR AMER. (test code 98 ML/MIN/1.73 = 61914) eGFR NON- AMER. (test 84 ML/MIN/1.73 code = 28940) CALC BUN/CREAT (test code = 32 RATIO [...] (test code = 2219) 25 U/L LIPID [id number] 00:00:00 Test Item Value Reference Range Interpretation Comments CHOLESTEROL (test code = 2210) 295 MG/DL TRIGLYCERIDES (test code = 2232) 218 MG/DL HDL CHOLESTEROL (test code = 2220) 46 MG/DL CALC LDL CHOL (test code = 2237) 205 MG/DL RISK RATIO LDL/HDL (test code = 4.47 RATIO 2238) LIPID [id number] 00:00:00 Test Item Value Reference Range Interpretation Comments CHOLESTEROL (test code = 2210) 295 MG/DL TRIGLYCERIDES (test code = 2232) 218 MG/DL HDL CHOLESTEROL (test code = 2220) 46 MG/DL CALC LDL CHOL (test code = 2237) 205 MG/DL RISK RATIO LDL/HDL (test code = 4.47 RATIO 2238) HEMOGLOBIN [id number] 00:00:00 Test Item Value Reference Range Interpretation Comments HEMOGLOBIN A1c (test code = 59123) 7.0 % HEMOGLOBIN [id number] 00:00:00 Test Item Value Reference Range Interpretation Comments HEMOGLOBIN A1c (test code = 85928) 7.0 % HEMOGLOBIN [id number] 00:00:00 Test Item Value Reference Range Interpretation Comments HEMOGLOBIN A1c (test code = 39291) 7.0 % [id number] 00:00:00 Test Item Value Reference Range Interpretation Comments TSH, THIRD GENERATION (test code 0.565 UIU/ML = 2821) [id number] 00:00:00 Test Item Value Reference Range Interpretation Comments TSH, THIRD GENERATION (test code 0.565 UIU/ML = 2821) [id number] 00:00:00 Test Item Value Reference Range Interpretation Comments TSH, THIRD GENERATION (test code 0.565 UIU/ML = 2821) [id number] 00:00:00 Test Item Value Reference Range Interpretation Comments TSH, THIRD GENERATION (test code 0.379 UIU/ML = 2821) [id number] 00:00:00 Test Item Value Reference Range Interpretation Comments TSH, THIRD GENERATION (test code 0.379 UIU/ML = 2821) [id number] 00:00:00 Test Item Value Reference Range Interpretation Comments TSH, THIRD GENERATION (test code 0.379 UIU/ML = 2821) [id number] 00:00:00 Test Item Value Reference Range Interpretation Comments TSH, THIRD GENERATION (test code 0.379 UIU/ML = 2821) [id number] 00:00:00 Test Item Value Reference Range Interpretation Comments TSH, THIRD GENERATION (test code 0.379 UIU/ML = 2821) [id number] 00:00:00 Test Item Value Reference Range Interpretation Comments TSH, THIRD GENERATION (test code 0.379 UIU/ML = 2821) [id number] 00:00:00 Test Item Value Reference Range Interpretation Comments TSH, THIRD GENERATION (test code 0.379 UIU/ML = 2821) [id number] 00:00:00 Test Item Value Reference Range Interpretation Comments TSH, THIRD GENERATION (test code 0.379 UIU/ML = 2821) [id number] 00:00:00 Test Item Value Reference Range Interpretation Comments TSH, THIRD GENERATION (test code 0.379 UIU/ML = 2821) [id number] 00:00:00 Test Item Value Reference Range Interpretation Comments TSH, THIRD GENERATION (test code 0.379 UIU/ML = 2821) [id number] 00:00:00 Test Item Value Reference Range Interpretation Comments TSH, THIRD GENERATION (test code 0.379 UIU/ML = 2821) CULTURE, [id number] 00:00:00 Test Item Value Reference Range Interpretation Comments CULTURE, URINE (test SPECIMEN NUMBER: code = 56348) [id number] CULTURE, [id number] 00:00:00 Test Item Value Reference Range Interpretation Comments CULTURE, URINE (test SPECIMEN NUMBER: code = 89900) [id number] CULTURE, [id number] 00:00:00 Test Item Value Reference Range Interpretation Comments CULTURE, URINE (test SPECIMEN NUMBER: code = 92844) [id number] CULTURE, [id number] 00:00:00 Test Item Value Reference Range Interpretation Comments CULTURE, URINE (test SPECIMEN NUMBER: code = 42897) [id number] CULTURE, [id number] 00:00:00 Test Item Value Reference Range Interpretation Comments CULTURE, URINE (test SPECIMEN NUMBER: code = 26233) [id number] CULTURE, [id number] 00:00:00 Test Item Value Reference Range Interpretation Comments CULTURE, URINE (test SPECIMEN NUMBER: code = 51585) [id number] CULTURE, [id number] 00:00:00 Test Item Value Reference Range Interpretation Comments CULTURE, URINE (test SPECIMEN NUMBER: code = 34009) [id number] COMPREHENSIVE METABOLIC [id number] 00:00:00 Test Item Value Reference Range Interpretation Comments GLUCOSE (test code = 2217) 128 MG/DL BUN (test code = 2208) 26 MG/DL CREATININE (test code = 2214) 0.92 MG/DL eGFR AMER. (test code 81 ML/MIN/1.73 = 66963) eGFR NON- AMER. (test 70 ML/MIN/1.73 code = 20132) CALC BUN/CREAT (test code = 28 RATIO [...] code = 2219) 29 U/L COMPREHENSIVE METABOLIC [id number] 00:00:00 Test Item Value Reference Range Interpretation Comments GLUCOSE (test code = 2217) 128 MG/DL BUN (test code = 2208) 26 MG/DL CREATININE (test code = 2214) 0.92 MG/DL eGFR AMER. (test code 81 ML/MIN/1.73 = 83944) eGFR NON- AMER. (test 70 ML/MIN/1.73 code = 33128) CALC BUN/CREAT (test code = 28 RATIO [...] code = 2219) 29 U/L ACUTE HEPATITIS [id number] 00:00:00 Test Item Value Reference Range Interpretation Comments HEPATITIS A IgM (test code = NON-REACTIVE 67720) HEPATITIS B CORE IgM (test code NON-REACTIVE = 0168) HEPATITIS B SURF AG (test code = NON-REACTIVE 6702) HEPATITIS C ANTIBODY (test code NON-REACTIVE = 4357) INTERPRETATION HEPATITIS A: (NOTE) (test code = 2552) INTERPRETATION HEPATITIS B: (NOTE) (test code = 38028) INTERPRETATION HEPATITIS C: (NOTE) (test code = 30372) ACUTE HEPATITIS [id number] 00:00:00 Test Item Value Reference Range Interpretation Comments HEPATITIS A IgM (test code = NON-REACTIVE 84870) HEPATITIS B CORE IgM (test code NON-REACTIVE = 4644) HEPATITIS B SURF AG (test code = NON-REACTIVE 6649) HEPATITIS C ANTIBODY (test code NON-REACTIVE = 4675) INTERPRETATION HEPATITIS A: (NOTE) (test code = 2552) INTERPRETATION HEPATITIS B: (NOTE) (test code = 54160) INTERPRETATION HEPATITIS C: (NOTE) (test code = 78825) [id number] 00:00:00 Test Item Value Reference Range Interpretation Comments AMYLASE (test code = 2205) 32 U/L [id number] 00:00:00 Test Item Value Reference Range Interpretation Comments AMYLASE (test code = 2205) 32 U/L [id number] 00:00:00 Test Item Value Reference Range Interpretation Comments LIPASE (test code = 2058) 22 U/L [id number] 00:00:00 Test Item Value Reference Range Interpretation Comments LIPASE (test code = 2058) 22 U/L [id number] 00:00:00 Test Item Value Reference Range Interpretation Comments LIPASE (test code = 2058) 22 U/L COMPREHENSIVE METABOLIC [id number] 00:00:00 Test Item Value Reference Range Interpretation Comments GLUCOSE (test code = 2217) 128 MG/DL BUN (test code = 2208) 26 MG/DL CREATININE (test code = 2214) 0.92 MG/DL eGFR AMER. (test code 81 ML/MIN/1.73 = 55142) eGFR NON- AMER. (test 70 ML/MIN/1.73 code = 96404) CALC BUN/CREAT (test code = 28 RATIO [...] code = 2219) 29 U/L COMPREHENSIVE METABOLIC [id number] 00:00:00 Test Item Value Reference Range Interpretation Comments GLUCOSE (test code = 2217) 128 MG/DL BUN (test code = 2208) 26 MG/DL CREATININE (test code = 2214) 0.92 MG/DL eGFR AMER. (test code 81 ML/MIN/1.73 = 25678) eGFR NON- AMER. (test 70 ML/MIN/1.73 code = 28281) CALC BUN/CREAT (test code = 28 RATIO [...] code = 2219) 29 U/L ACUTE HEPATITIS [id number] 00:00:00 Test Item Value Reference Range Interpretation Comments HEPATITIS A IgM (test code = NON-REACTIVE 87853) HEPATITIS B CORE IgM (test code NON-REACTIVE = 6853) HEPATITIS B SURF AG (test code = NON-REACTIVE 3354) HEPATITIS C ANTIBODY (test code NON-REACTIVE = 4327) INTERPRETATION HEPATITIS A: (NOTE) (test code = 2552) INTERPRETATION HEPATITIS B: (NOTE) (test code = 50182) INTERPRETATION HEPATITIS C: (NOTE) (test code = 98754) ACUTE HEPATITIS [id number] 00:00:00 Test Item Value Reference Range Interpretation Comments HEPATITIS A IgM (test code = NON-REACTIVE 13991) HEPATITIS B CORE IgM (test code NON-REACTIVE = 4644) HEPATITIS B SURF AG (test code = NON-REACTIVE 3569) HEPATITIS C ANTIBODY (test code NON-REACTIVE = 8575) INTERPRETATION HEPATITIS A: (NOTE) (test code = 2552) INTERPRETATION HEPATITIS B: (NOTE) (test code = 37832) INTERPRETATION HEPATITIS C: (NOTE) (test code = 67182) [id number] 00:00:00 Test Item Value Reference Range Interpretation Comments AMYLASE (test code = 2205) 32 U/L [id number] 00:00:00 Test Item Value Reference Range Interpretation Comments AMYLASE (test code = 2205) 32 U/L [id number] 00:00:00 Test Item Value Reference Range Interpretation Comments LIPASE (test code = 2058) 22 U/L [id number] 00:00:00 Test Item Value Reference Range Interpretation Comments LIPASE (test code = 2058) 22 U/L [id number] 00:00:00 Test Item Value Reference Range Interpretation Comments LIPASE (test code = 2058) 22 U/L COMPREHENSIVE METABOLIC [id number] 00:00:00 Test Item Value Reference Range Interpretation Comments GLUCOSE (test code = 2217) 128 MG/DL BUN (test code = 2208) 26 MG/DL CREATININE (test code = 2214) 0.92 MG/DL eGFR AMER. (test code 81 ML/MIN/1.73 = 57810) eGFR NON- AMER. (test 70 ML/MIN/1.73 code = 46507) CALC BUN/CREAT (test code = 28 RATIO [...] code = 2219) 29 U/L ACUTE HEPATITIS [id number] 00:00:00 Test Item Value Reference Range Interpretation Comments HEPATITIS A IgM (test code = NON-REACTIVE 88969) HEPATITIS B CORE IgM (test code NON-REACTIVE = 3556) HEPATITIS B SURF AG (test code = NON-REACTIVE 0141) HEPATITIS C ANTIBODY (test code NON-REACTIVE = 5260) INTERPRETATION HEPATITIS A: (NOTE) (test code = 2552) INTERPRETATION HEPATITIS B: (NOTE) (test code = 87309) INTERPRETATION HEPATITIS C: (NOTE) (test code = 61813) [id number] 00:00:00 Test Item Value Reference Range Interpretation Comments AMYLASE (test code = 2205) 32 U/L [id number] 00:00:00 Test Item Value Reference Range Interpretation Comments LIPASE (test code = 2058) 22 U/L [id number] 00:00:00 Test Item Value Reference Range Interpretation Comments LIPASE (test code = 2058) 22 U/L COMPREHENSIVE METABOLIC [id number] 00:00:00 Test Item Value Reference Range Interpretation Comments GLUCOSE (test code = 2217) 128 MG/DL BUN (test code = 2208) 26 MG/DL CREATININE (test code = 2214) 0.92 MG/DL eGFR AMER. (test code 81 ML/MIN/1.73 = 88614) eGFR NON- AMER. (test 70 ML/MIN/1.73 code = 33444) CALC BUN/CREAT (test code = 28 RATIO [...] code = 2219) 29 U/L COMPREHENSIVE METABOLIC [id number] 00:00:00 Test Item Value Reference Range Interpretation Comments GLUCOSE (test code = 2217) 128 MG/DL BUN (test code = 2208) 26 MG/DL CREATININE (test code = 2214) 0.92 MG/DL eGFR AMER. (test code 81 ML/MIN/1.73 = 32207) eGFR NON- AMER. (test 70 ML/MIN/1.73 code = 07195) CALC BUN/CREAT (test code = 28 RATIO [...] code = 2219) 29 U/L ACUTE HEPATITIS [id number] 00:00:00 Test Item Value Reference Range Interpretation Comments HEPATITIS A IgM (test code = NON-REACTIVE 15986) HEPATITIS B CORE IgM (test code NON-REACTIVE = 2044) HEPATITIS B SURF AG (test code = NON-REACTIVE 2946) HEPATITIS C ANTIBODY (test code NON-REACTIVE = 4550) INTERPRETATION HEPATITIS A: (NOTE) (test code = 2552) INTERPRETATION HEPATITIS B: (NOTE) (test code = 18603) INTERPRETATION HEPATITIS C: (NOTE) (test code = 94750) ACUTE HEPATITIS [id number] 00:00:00 Test Item Value Reference Range Interpretation Comments HEPATITIS A IgM (test code = NON-REACTIVE 71394) HEPATITIS B CORE IgM (test code NON-REACTIVE = 4644) HEPATITIS B SURF AG (test code = NON-REACTIVE 0979) HEPATITIS C ANTIBODY (test code NON-REACTIVE = 4659) INTERPRETATION HEPATITIS A: (NOTE) (test code = 2552) INTERPRETATION HEPATITIS B: (NOTE) (test code = 28825) INTERPRETATION HEPATITIS C: (NOTE) (test code = 02182) [id number] 00:00:00 Test Item Value Reference Range Interpretation Comments AMYLASE (test code = 2205) 32 U/L [id number] 00:00:00 Test Item Value Reference Range Interpretation Comments AMYLASE (test code = 2205) 32 U/L [id number] 00:00:00 Test Item Value Reference Range Interpretation Comments LIPASE (test code = 2058) 22 U/L [id number] 00:00:00 Test Item Value Reference Range Interpretation Comments LIPASE (test code = 2058) 22 U/L [id number] 00:00:00 Test Item Value Reference Range Interpretation Comments LIPASE (test code = 2058) 22 U/L [id number] 00:00:00 Test Item Value Reference Range Interpretation Comments TSH, THIRD GENERATION (test code 4.890 UIU/ML = 2821) [id number] 00:00:00 Test Item Value Reference Range Interpretation Comments TSH, THIRD GENERATION (test code 4.890 UIU/ML = 2821) [id number] 00:00:00 Test Item Value Reference Range Interpretation Comments TSH, THIRD GENERATION (test code 4.890 UIU/ML = 2821) COMPREHENSIVE METABOLIC [id number] 00:00:00 Test Item Value Reference Range Interpretation Comments GLUCOSE (test code = 2217) 121 MG/DL BUN (test code = 2208) 40 MG/DL CREATININE (test code = 2214) 1.48 MG/DL eGFR AMER. (test code 45 ML/MIN/1.73 = 64921) eGFR NON- AMER. (test 39 ML/MIN/1.73 code = 04586) CALC BUN/CREAT (test code = 27 RATIO [...] code = 2219) 20 U/L COMPREHENSIVE METABOLIC [id number] 00:00:00 Test Item Value Reference Range Interpretation Comments GLUCOSE (test code = 2217) 121 MG/DL BUN (test code = 2208) 40 MG/DL CREATININE (test code = 2214) 1.48 MG/DL eGFR AMER. (test code 45 ML/MIN/1.73 = 74116) eGFR NON- AMER. (test 39 ML/MIN/1.73 code = 92950) CALC BUN/CREAT (test code = 27 RATIO [...] ALT (test code = 2219) 20 U/L [id number] 00:00:00 Test Item Value Reference Range Interpretation Comments TSH, THIRD GENERATION (test code 4.890 UIU/ML = 2821) [id number] 00:00:00 Test Item Value Reference Range Interpretation Comments TSH, THIRD GENERATION (test code 4.890 UIU/ML = 2821) [id number] 00:00:00 Test Item Value Reference Range Interpretation Comments TSH, THIRD GENERATION (test code 4.890 UIU/ML = 2821) COMPREHENSIVE METABOLIC [id number] 00:00:00 Test Item Value Reference Range Interpretation Comments GLUCOSE (test code = 2217) 121 MG/DL BUN (test code = 2208) 40 MG/DL CREATININE (test code = 2214) 1.48 MG/DL eGFR AMER. (test code 45 ML/MIN/1.73 = 84828) eGFR NON- AMER. (test 39 ML/MIN/1.73 code = 26385) CALC BUN/CREAT (test code = 27 RATIO [...] code = 2219) 20 U/L COMPREHENSIVE METABOLIC [id number] 00:00:00 Test Item Value Reference Range Interpretation Comments GLUCOSE (test code = 2217) 121 MG/DL BUN (test code = 2208) 40 MG/DL CREATININE (test code = 2214) 1.48 MG/DL eGFR AMER. (test code 45 ML/MIN/1.73 = 40053) eGFR NON- AMER. (test 39 ML/MIN/1.73 code = 87703) CALC BUN/CREAT (test code = 27 RATIO [...] ALT (test code = 2219) 20 U/L [id number] 00:00:00 Test Item Value Reference Range Interpretation Comments TSH, THIRD GENERATION (test code 4.890 UIU/ML = 2821) [id number] 00:00:00 Test Item Value Reference Range Interpretation Comments TSH, THIRD GENERATION (test code 4.890 UIU/ML = 2821) COMPREHENSIVE METABOLIC [id number] 00:00:00 Test Item Value Reference Range Interpretation Comments GLUCOSE (test code = 2217) 121 MG/DL BUN (test code = 2208) 40 MG/DL CREATININE (test code = 2214) 1.48 MG/DL eGFR AMER. (test code 45 ML/MIN/1.73 = 20101) eGFR NON- AMER. (test 39 ML/MIN/1.73 code = 82145) CALC BUN/CREAT (test code = 27 RATIO [...] ALT (test code = 2219) 20 U/L [id number] 00:00:00 Test Item Value Reference Range Interpretation Comments TSH, THIRD GENERATION (test code 4.890 UIU/ML = 2821) [id number] 00:00:00 Test Item Value Reference Range Interpretation Comments TSH, THIRD GENERATION (test code 4.890 UIU/ML = 2821) [id number] 00:00:00 Test Item Value Reference Range Interpretation Comments TSH, THIRD GENERATION (test code 4.890 UIU/ML = 2821) COMPREHENSIVE METABOLIC [id number] 00:00:00 Test Item Value Reference Range Interpretation Comments GLUCOSE (test code = 2217) 121 MG/DL BUN (test code = 2208) 40 MG/DL CREATININE (test code = 2214) 1.48 MG/DL eGFR AMER. (test code 45 ML/MIN/1.73 = 86839) eGFR NON- AMER. (test 39 ML/MIN/1.73 code = 93190) CALC BUN/CREAT (test code = 27 RATIO [...] code = 2219) 20 U/L COMPREHENSIVE METABOLIC [id number] 00:00:00 Test Item Value Reference Range Interpretation Comments GLUCOSE (test code = 2217) 121 MG/DL BUN (test code = 2208) 40 MG/DL CREATININE (test code = 2214) 1.48 MG/DL eGFR AMER. (test code 45 ML/MIN/1.73 = 56331) eGFR NON- AMER. (test 39 ML/MIN/1.73 code = 54086) CALC BUN/CREAT (test code = 27 RATIO [...] (test code = 2219) 20 U/L LIPID [id number] 00:00:00 Test Item Value Reference Range Interpretation Comments CHOLESTEROL (test code = 2210) 261 MG/DL TRIGLYCERIDES (test code = 2232) 165 MG/DL HDL CHOLESTEROL (test code = 2220) 58 MG/DL CALC LDL CHOL (test code = 2237) 170 MG/DL RISK RATIO LDL/HDL (test code = 2.93 RATIO 2238) LIPID [id number] 00:00:00 Test Item Value Reference Range Interpretation Comments CHOLESTEROL (test code = 2210) 261 MG/DL TRIGLYCERIDES (test code = 2232) 165 MG/DL HDL CHOLESTEROL (test code = 2220) 58 MG/DL CALC LDL CHOL (test code = 2237) 170 MG/DL RISK RATIO LDL/HDL (test code = 2.93 RATIO 2238) CBC W/AUTO [id number] 00:00:00 Test Item Value Reference Range Interpretation [...] code = 1015) 378 K/UL CBC W/AUTO [id number] 00:00:00 Test Item Value Reference Range Interpretation [...] code = 1015) 378 K/UL CBC W/AUTO [id number] 00:00:00 Test Item Value Reference Range Interpretation [...] (test code = 1015) 378 K/UL HEMOGLOBIN [id number] 00:00:00 Test Item Value Reference Range Interpretation Comments HEMOGLOBIN A1c (test code = 31977) 6.4 % HEMOGLOBIN [id number] 00:00:00 Test Item Value Reference Range Interpretation Comments HEMOGLOBIN A1c (test code = 72755) 6.4 % HEMOGLOBIN [id number] 00:00:00 Test Item Value Reference Range Interpretation Comments HEMOGLOBIN A1c (test code = 46870) 6.4 % [id number] 00:00:00 Test Item Value Reference Range Interpretation Comments TSH (test code = 2821) 5.290 UIU/ML [id number] 00:00:00 Test Item Value Reference Range Interpretation Comments TSH (test code = 2821) 5.290 UIU/ML [id number] 00:00:00 Test Item Value Reference Range Interpretation Comments TSH (test code = 2821) 5.290 UIU/ML LIPID [id number] 00:00:00 Test Item Value Reference Range Interpretation Comments CHOLESTEROL (test code = 2210) 261 MG/DL TRIGLYCERIDES (test code = 2232) 165 MG/DL HDL CHOLESTEROL (test code = 2220) 58 MG/DL CALC LDL CHOL (test code = 2237) 170 MG/DL RISK RATIO LDL/HDL (test code = 2.93 RATIO 2238) LIPID [id number] 00:00:00 Test Item Value Reference Range Interpretation Comments CHOLESTEROL (test code = 2210) 261 MG/DL TRIGLYCERIDES (test code = 2232) 165 MG/DL HDL CHOLESTEROL (test code = 2220) 58 MG/DL CALC LDL CHOL (test code = 2237) 170 MG/DL RISK RATIO LDL/HDL (test code = 2.93 RATIO 2238) CBC W/AUTO [id number] 00:00:00 Test Item Value Reference Range Interpretation [...] code = 1015) 378 K/UL CBC W/AUTO [id number] 00:00:00 Test Item Value Reference Range Interpretation [...] code = 1015) 378 K/UL CBC W/AUTO [id number] 00:00:00 Test Item Value Reference Range Interpretation [...] (test code = 1015) 378 K/UL HEMOGLOBIN [id number] 00:00:00 Test Item Value Reference Range Interpretation Comments HEMOGLOBIN A1c (test code = 30533) 6.4 % HEMOGLOBIN [id number] 00:00:00 Test Item Value Reference Range Interpretation Comments HEMOGLOBIN A1c (test code = 60038) 6.4 % HEMOGLOBIN [id number] 00:00:00 Test Item Value Reference Range Interpretation Comments HEMOGLOBIN A1c (test code = 79395) 6.4 % [id number] 00:00:00 Test Item Value Reference Range Interpretation Comments TSH (test code = 2821) 5.290 UIU/ML [id number] 00:00:00 Test Item Value Reference Range Interpretation Comments TSH (test code = 2821) 5.290 UIU/ML [id number] 00:00:00 Test Item Value Reference Range Interpretation Comments TSH (test code = 2821) 5.290 UIU/ML LIPID [id number] 00:00:00 Test Item Value Reference Range Interpretation Comments CHOLESTEROL (test code = 2210) 261 MG/DL TRIGLYCERIDES (test code = 2232) 165 MG/DL HDL CHOLESTEROL (test code = 2220) 58 MG/DL CALC LDL CHOL (test code = 2237) 170 MG/DL RISK RATIO LDL/HDL (test code = 2.93 RATIO 2238) CBC W/AUTO [id number] 00:00:00 Test Item Value Reference Range Interpretation [...] code = 1015) 378 K/UL CBC W/AUTO [id number] 00:00:00 Test Item Value Reference Range Interpretation [...] (test code = 1015) 378 K/UL HEMOGLOBIN [id number] 00:00:00 Test Item Value Reference Range Interpretation Comments HEMOGLOBIN A1c (test code = 98301) 6.4 % HEMOGLOBIN [id number] 00:00:00 Test Item Value Reference Range Interpretation Comments HEMOGLOBIN A1c (test code = 88224) 6.4 % [id number] 00:00:00 Test Item Value Reference Range Interpretation Comments TSH (test code = 2821) 5.290 UIU/ML [id number] 00:00:00 Test Item Value Reference Range Interpretation Comments TSH (test code = 2821) 5.290 UIU/ML LIPID [id number] 00:00:00 Test Item Value Reference Range Interpretation Comments CHOLESTEROL (test code = 2210) 261 MG/DL TRIGLYCERIDES (test code = 2232) 165 MG/DL HDL CHOLESTEROL (test code = 2220) 58 MG/DL CALC LDL CHOL (test code = 2237) 170 MG/DL RISK RATIO LDL/HDL (test code = 2.93 RATIO 2238) LIPID [id number] 00:00:00 Test Item Value Reference Range Interpretation Comments CHOLESTEROL (test code = 2210) 261 MG/DL TRIGLYCERIDES (test code = 2232) 165 MG/DL HDL CHOLESTEROL (test code = 2220) 58 MG/DL CALC LDL CHOL (test code = 2237) 170 MG/DL RISK RATIO LDL/HDL (test code = 2.93 RATIO 2238) CBC W/AUTO [id number] 00:00:00 Test Item Value Reference Range Interpretation [...] code = 1015) 378 K/UL CBC W/AUTO [id number] 00:00:00 Test Item Value Reference Range Interpretation [...] code = 1015) 378 K/UL CBC W/AUTO [id number] 00:00:00 Test Item Value Reference Range Interpretation [...] (test code = 1015) 378 K/UL HEMOGLOBIN [id number] 00:00:00 Test Item Value Reference Range Interpretation Comments HEMOGLOBIN A1c (test code = 54643) 6.4 % HEMOGLOBIN [id number] 00:00:00 Test Item Value Reference Range Interpretation Comments HEMOGLOBIN A1c (test code = 42536) 6.4 % HEMOGLOBIN [id number] 00:00:00 Test Item Value Reference Range Interpretation Comments HEMOGLOBIN A1c (test code = 65121) 6.4 % [id number] 00:00:00 Test Item Value Reference Range Interpretation Comments TSH (test code = 2821) 5.290 UIU/ML [id number] 00:00:00 Test Item Value Reference Range Interpretation Comments TSH (test code = 2821) 5.290 UIU/ML [id number] 00:00:00 Test Item Value Reference Range Interpretation [...] code = 2821) 1.030 UIU/ML COMPREHENSIVE METABOLIC [id number] 00:00:00 Test Item Value Reference Range Interpretation Comments GLUCOSE (test code = 2217) 106 MG/DL BUN (test code = 2208) 23 MG/DL CREATININE (test code = 2214) 0.66 MG/DL eGFR AMER. (test code 114 ML/MIN/1.73 = 16327) eGFR NON- AMER. (test 99 ML/MIN/1.73 code = 14370) CALC BUN/CREAT (test code = 35 RATIO [...] code = 2219) 31 U/L COMPREHENSIVE METABOLIC [id number] 00:00:00 Test Item Value Reference Range Interpretation Comments GLUCOSE (test code = 2217) 106 MG/DL BUN (test code = 2208) 23 MG/DL CREATININE (test code = 2214) 0.66 MG/DL eGFR AMER. (test code 114 ML/MIN/1.73 = 28084) eGFR NON- AMER. (test 99 ML/MIN/1.73 code = 64263) CALC BUN/CREAT (test code = 35 RATIO [...] code = 2821) 0.335 UIU/ML COMPREHENSIVE METABOLIC [id number] 00:00:00 Test Item Value Reference Range Interpretation Comments GLUCOSE (test code = 2217) 106 MG/DL BUN (test code = 2208) 23 MG/DL CREATININE (test code = 2214) 0.66 MG/DL eGFR AMER. (test code 114 ML/MIN/1.73 = 26662) eGFR NON- AMER. (test 99 ML/MIN/1.73 code = 53398) CALC BUN/CREAT (test code = 35 RATIO [...] code = 2219) 31 U/L COMPREHENSIVE METABOLIC [id number] 00:00:00 Test Item Value Reference Range Interpretation Comments GLUCOSE (test code = 2217) 106 MG/DL BUN (test code = 2208) 23 MG/DL CREATININE (test code = 2214) 0.66 MG/DL eGFR AMER. (test code 114 ML/MIN/1.73 = 85995) eGFR NON- AMER. (test 99 ML/MIN/1.73 code = 31623) CALC BUN/CREAT (test code = 35 RATIO [...] code = 2821) 0.335 UIU/ML COMPREHENSIVE METABOLIC [id number] 00:00:00 Test Item Value Reference Range Interpretation Comments GLUCOSE (test code = 2217) 106 MG/DL BUN (test code = 2208) 23 MG/DL CREATININE (test code = 2214) 0.66 MG/DL eGFR AMER. (test code 114 ML/MIN/1.73 = 78274) eGFR NON- AMER. (test 99 ML/MIN/1.73 code = 94077) CALC BUN/CREAT (test code = 35 RATIO [...] code = 2821) 0.335 UIU/ML COMPREHENSIVE METABOLIC [id number] 00:00:00 Test Item Value Reference Range Interpretation Comments GLUCOSE (test code = 2217) 106 MG/DL BUN (test code = 2208) 23 MG/DL CREATININE (test code = 2214) 0.66 MG/DL eGFR AMER. (test code 114 ML/MIN/1.73 = 10404) eGFR NON- AMER. (test 99 ML/MIN/1.73 code = 80926) CALC BUN/CREAT (test code = 35 RATIO [...] code = 2219) 31 U/L COMPREHENSIVE METABOLIC [id number] 00:00:00 Test Item Value Reference Range Interpretation Comments GLUCOSE (test code = 2217) 106 MG/DL BUN (test code = 2208) 23 MG/DL CREATININE (test code = 2214) 0.66 MG/DL eGFR AMER. (test code 114 ML/MIN/1.73 = 65163) eGFR NON- AMER. (test 99 ML/MIN/1.73 code = 27136) CALC BUN/CREAT (test code = 35 RATIO [...] code = 2821) 0.335 UIU/ML COMPREHENSIVE METABOLIC [id number] 00:00:00 Test Item Value Reference Range Interpretation Comments GLUCOSE (test code = 2217) 103 MG/DL BUN (test code = 2208) 15 MG/DL CREATININE (test code = 2214) 0.77 MG/DL eGFR AMER. (test code 101 ML/MIN/1.73 = 28702) eGFR NON- AMER. (test 87 ML/MIN/1.73 code = 37214) CALC BUN/CREAT (test code = 19 RATIO [...] code = 2219) 24 U/L COMPREHENSIVE METABOLIC [id number] 00:00:00 Test Item Value Reference Range Interpretation Comments GLUCOSE (test code = 2217) 103 MG/DL BUN (test code = 2208) 15 MG/DL CREATININE (test code = 2214) 0.77 MG/DL eGFR AMER. (test code 101 ML/MIN/1.73 = 22959) eGFR NON- AMER. (test 87 ML/MIN/1.73 code = 37187) CALC BUN/CREAT (test code = 19 RATIO [...] code = 2821) 0.424 UIU/ML COMPREHENSIVE METABOLIC [id number] 00:00:00 Test Item Value Reference Range Interpretation Comments GLUCOSE (test code = 2217) 103 MG/DL BUN (test code = 2208) 15 MG/DL CREATININE (test code = 2214) 0.77 MG/DL eGFR AMER. (test code 101 ML/MIN/1.73 = 52750) eGFR NON- AMER. (test 87 ML/MIN/1.73 code = 68303) CALC BUN/CREAT (test code = 19 RATIO [...] code = 2219) 24 U/L COMPREHENSIVE METABOLIC [id number] 00:00:00 Test Item Value Reference Range Interpretation Comments GLUCOSE (test code = 2217) 103 MG/DL BUN (test code = 2208) 15 MG/DL CREATININE (test code = 2214) 0.77 MG/DL eGFR AMER. (test code 101 ML/MIN/1.73 = 62149) eGFR NON- AMER. (test 87 ML/MIN/1.73 code = 81774) CALC BUN/CREAT (test code = 19 RATIO [...] code = 2821) 0.424 UIU/ML COMPREHENSIVE METABOLIC [id number] 00:00:00 Test Item Value Reference Range Interpretation Comments GLUCOSE (test code = 2217) 103 MG/DL BUN (test code = 2208) 15 MG/DL CREATININE (test code = 2214) 0.77 MG/DL eGFR AMER. (test code 101 ML/MIN/1.73 = 09884) eGFR NON- AMER. (test 87 ML/MIN/1.73 code = 61397) CALC BUN/CREAT (test code = 19 RATIO [...] code = 2821) 0.424 UIU/ML COMPREHENSIVE METABOLIC [id number] 00:00:00 Test Item Value Reference Range Interpretation Comments GLUCOSE (test code = 2217) 103 MG/DL BUN (test code = 2208) 15 MG/DL CREATININE (test code = 2214) 0.77 MG/DL eGFR AMER. (test code 101 ML/MIN/1.73 = 27568) eGFR NON- AMER. (test 87 ML/MIN/1.73 code = 00893) CALC BUN/CREAT (test code = 19 RATIO [...] code = 2219) 24 U/L COMPREHENSIVE METABOLIC [id number] 00:00:00 Test Item Value Reference Range Interpretation Comments GLUCOSE (test code = 2217) 103 MG/DL BUN (test code = 2208) 15 MG/DL CREATININE (test code = 2214) 0.77 MG/DL eGFR AMER. (test code 101 ML/MIN/1.73 = 04922) eGFR NON- AMER. (test 87 ML/MIN/1.73 code = 09881) CALC BUN/CREAT (test code = 19 RATIO [...] (test code = 2821) 0.424 UIU/ML CULTURE, [id number] 00:00:00 Test Item Value Reference Range Interpretation Comments CULTURE, URINE (test SPECIMEN NUMBER: code = 45856) [id number] CULTURE, [id number] 00:00:00 Test Item Value Reference Range Interpretation Comments CULTURE, URINE (test SPECIMEN NUMBER: code = 27139) [id number] CULTURE, [id number] 00:00:00 Test Item Value Reference Range Interpretation Comments CULTURE, URINE (test SPECIMEN NUMBER: code = 14292) [id number] CULTURE, [id number] 00:00:00 Test Item Value Reference Range Interpretation Comments CULTURE, URINE (test SPECIMEN NUMBER: code = 21011) [id number] CULTURE, [id number] 00:00:00 Test Item Value Reference Range Interpretation Comments CULTURE, URINE (test SPECIMEN NUMBER: code = 75646) [id number] CULTURE, [id number] 00:00:00 Test Item Value Reference Range Interpretation Comments CULTURE, URINE (test SPECIMEN NUMBER: code = 58763) [id number] CULTURE, [id number] 00:00:00 Test Item Value Reference Range Interpretation Comments CULTURE, URINE (test SPECIMEN NUMBER: code = 05826) [id number] CULTURE, [id number] 00:00:00 Test Item Value Reference Range Interpretation Comments CULTURE, URINE (test SPECIMEN NUMBER: code = 79699) [id number] CULTURE, [id number] 00:00:00 Test Item Value Reference Range Interpretation Comments CULTURE, URINE (test SPECIMEN NUMBER: code = 14794) [id number] CULTURE, [id number] 00:00:00 Test Item Value Reference Range Interpretation Comments CULTURE, URINE (test SPECIMEN NUMBER: code = 82529) [id number] CULTURE, [id number] 00:00:00 Test Item Value Reference Range Interpretation Comments CULTURE, URINE (test SPECIMEN NUMBER: code = 69765) [id number] CULTURE, [id number] 00:00:00 Test Item Value Reference Range Interpretation Comments CULTURE, URINE (test SPECIMEN NUMBER: code = 85048) [id number] CULTURE, [id number] 00:00:00 Test Item Value Reference Range Interpretation Comments CULTURE, URINE (test SPECIMEN NUMBER: code = 01084) [id number] CULTURE, [id number] 00:00:00 Test Item Value Reference Range Interpretation Comments CULTURE, URINE (test SPECIMEN NUMBER: code = 97879) [id number]
[2022-03-07 09:37] LABS: Urine Blood Trace-lysed (Negative); Urine Glucose Negative (Negative); Urine Protein Negative (Negative); Urine Specific Gravity 1.025 (1.005-1.030); Urine pH 5.5 (5.0-7.0)
[2022-03-07 09:47] LABS: Urine Mucus Slight /HPF (None Seen); Urine RBC <5 /HPF (None Seen); Urine WBC Clump Rare /HPF (None Seen)
[2022-03-07 09:52] LABS: Urine Bacteria Loaded /HPF (<20)
--- NOTE | 2022-03-07 10:08 | EDPHYS ---
Physician Documentation [facility] Name: Jaimie Amanda Age: 61 yrs Sex: Female : 1960 Arrival Date: 03/07/2022 Time: 09:07 Bed 12 Private MD: ED Physician Villa Byrd HPI: 03/07 10:02 This 61 yrs old Female presents to ER via Ambulatory with complaints of Pain With rn Urination, Low Back Pain. 10:02 The patient presents with urinary symptoms, dysuria, frequency. Onset: The rn symptoms/episode began/occurred yesterday. Modifying factors: The symptoms are alleviated by nothing, the symptoms are aggravated by urinating. Associated signs and symptoms: Pertinent positives: dysuria, urinary frequency, Pertinent negatives: fever, vomiting. Severity of symptoms: At their worst the symptoms were mild, in the emergency department the symptoms are unchanged. The patient has not experienced similar symptoms in the past. The patient has not recently seen a physician. Historical: - Allergies: 09:36 No Known Allergies; iw - PMHx: 09:36 Anxiety; Chronic Abdominal Pain; Hypertensive disorder; Hypothyroidism; low NA; NIDDM; iw - Family history:: not pertinent. - Hospitalizations: : No recent hospitalization is reported. ROS: 10:02 Constitutional: Negative for fever, chills, and weight loss, ENT: + nasal congestion rn and sore throat Cardiovascular: Negative for chest pain, palpitations, and edema, Respiratory: Negative for shortness of breath, cough, wheezing, and pleuritic chest pain, Abdomen/GI: Negative for abdominal pain, nausea, vomiting, diarrhea, and constipation, Back: + low back pain : Negative for injury, bleeding, discharge, and swelling, MS/Extremity: Negative for injury and deformity, Skin: Negative for injury, rash, and discoloration, Neuro: Negative for headache, weakness, numbness, tingling, and seizure. Exam: 10:02 Constitutional: This is a well developed, well nourished patient who is awake, alert, rn and in no acute distress. Head/Face: Normocephalic, atraumatic. Eyes: Periorbital areas with no swelling, redness, or edema. Cardiovascular: Regular rate and rhythm. No pulse deficits. Respiratory: No increased work of breathing, no retractions or nasal flaring. Abdomen/GI: Soft, non-tender Back: No spinal tenderness. No costovertebral tenderness. Full range of motion. Skin: Warm, dry MS/ Extremity: Pulses equal, no cyanosis. Neuro: Awake and alert, GCS 15 Vital Signs: 09:35 BP 162 / 87; Pulse 87; Resp 16; Temp 99.2; Pulse Ox 94% on R/A; Weight 68.04 kg; Height iw 5 ft. 8 in. (172.72 cm); 09:35 Body Mass Index 22.81 (68.04 kg, 172.72 cm) iw MDM: 09:16 Patient medically screened. rn 10:06 Differential diagnosis: urinary tract infection, COVID, flu. Data reviewed: vital rn signs, nurses notes, lab test result(s), and as a result, I will discharge patient. Counseling: I had a detailed discussion with the patient and/or guardian regarding: the historical points, exam findings, and any diagnostic results supporting the discharge/admit diagnosis, lab results, the need for outpatient follow up, to return to the emergency department if symptoms worsen or persist or if there are any questions or concerns that arise at home. Special discussion: I discussed with the patient/guardian in detail that at this point there is no indication for admission to the hospital. It is understood, however, that if the symptoms persist or worsen the patient needs to return immediately for re-evaluation. ED course: Pt refuses to wait on swabs. She states mom is sick at home. Told her they could both have covid/flu/viral illness on top of her UTI, still refuses to wait. . 03/07 09:16 Order name: Urine Microscopic Only; Complete Time: 10:02 rn 03/07 09:25 Order name: COVID-19/FLU A+B rn 03/07 09:16 Order name: Urine Dipstick-Ancillary (obtain specimen); Complete Time: 09:37 rn 03/07 09:38 Order name: Urine Dipstick-Ancillary; Complete Time: 10:02 EDMS 03/07 09:55 Order name: Urine Culture EDMS Administered Medications: No medications were administered Disposition Summary: 03/07/22 10:08 Discharge Ordered Location: Home rn Problem: new rn Symptoms: have improved rn Condition: Stable rn Diagnosis - UTI/ Urinary tract infection, site not specified rn Followup: rn - With: Private Physician - When: As needed - Reason: Recheck today's complaints, Re-evaluation by your physician Discharge Instructions: - Discharge Summary Sheet rn - Urinary Tract Infection, Adult rn Forms: - Medication Reconciliation Form rn - Thank You Letter rn - Antibiotic administration internship - Prescription Opioid Use rn Prescriptions: - Cipro 500 mg Oral Tablet - take 1 tablet by ORAL route every 12 hours for 7 days; 14 tablet; Refills: 0, rn Product Selection Permitted Signatures: Dispatcher [employer] Therese Coello RN RN iw Nieto, Roman, MD MD alternative financing specialist: (The following items were deleted from the chart) 09:36 09:36 PMHx: Alcoholism; [facility]
--- NOTE | 2022-03-07 10:08 | ER ---
Nurse's Notes [facility] Name: Jaimie Amanda Age: 61 yrs Sex: Female : 1960 Arrival Date: 03/07/2022 Time: 09:07 Bed 12 Private MD: Diagnosis: UTI/ Urinary tract infection, site not specified Presentation: 03/07 09:35 Chief complaint: Patient states: pain and burning with urination X 2 days, also has jhon iw back pain. Coronavirus screen: At this time, the client does not indicate any symptoms associated with coronavirus-19. Ebola Screen: Patient negative for fever greater than or equal to 101.5 degrees Fahrenheit, and additional compatible Ebola Virus Disease symptoms Patient denies exposure to infectious person. Patient denies travel to an Ebola-affected area in the 21 days before illness onset. No symptoms or risks identified at this time. Initial Sepsis Screen: Does the patient meet any 2 criteria? No. Patient's initial sepsis screen is negative. Does the patient have a suspected source of infection? No. Patient's initial sepsis screen is negative. Risk Assessment: Do you want to hurt yourself or someone else? Patient reports no desire to harm self or others. Onset of symptoms was March 07, 2022. 09:35 Method Of Arrival: Ambulatory iw 09:35 Acuity: HZEN 3 iw Historical: - Allergies: 09:36 No Known Allergies; iw - PMHx: 09:36 Anxiety; Chronic Abdominal Pain; Hypertensive disorder; Hypothyroidism; low NA; NIDDM; iw - Family history:: not pertinent. - Hospitalizations: : No recent hospitalization is reported. Vital Signs: 09:35 BP 162 / 87; Pulse 87; Resp 16; Temp 99.2; Pulse Ox 94% on R/A; Weight 68.04 kg; Height iw 5 ft. 8 in. (172.72 cm); 09:35 Body Mass Index 22.81 (68.04 kg, 172.72 cm) iw ED Course: 09:07 Patient arrived in ED. rg4 09:16 Villa Byrd MD is Attending Physician. rn 09:36 Triage completed. iw 09:36 Arm band placed on. iw 09:37 COVID-19/FLU A+B Sent. mm9 09:37 Urine Microscopic Only Sent. mm9 09:37 Urine collected: clean catch specimen, cloudy, COVID swab sent to lab. Flu and/or RSV mm9 swab sent to lab. 09:39 Patient has correct armband on for positive identification. mm9 Administered Medications: No medications were administered Outcome: 10:08 Discharge ordered by . rn 10:10 Patient left the ED. mm9 Signatures: Therese Logan RN RN iw Nieto, Roman, MD MD rn Garcia, Rubi rg4 Martinez, Maria mm9 Corrections: (The following items were deleted from the chart) 09:36 09:36 PMHx: Alcoholism; [facility]
[2022-03-07 10:16] LABS: SARS-COV-2 RT PCR NEGATIVE (NEGATIVE)
[2022-03-07 10:30] VITALS: BP 162/87; TEMP 99.2; O2SAT 94
== END 2022-03-07 10:10 | disposition home or self-care (01) ==
LOC: ER 09:03
DX: N39.0 Urinary tract infection, site not specified (principal); Z20.822 Contact with and (suspected) exposure to COVID-19; I10 Essential (primary) hypertension
CPT/HCPCS: 87088; 87086; 0240U; 99282; 81003; 81015

== ENCOUNTER 2022-03-10 09:16 | Emergency (ER) | payer OTHER ==
--- OUTSIDE RECORDS SUMMARY | 2022-03-10 09:28 | XMS REPORT | Continuity of Care Document ---
:1960 Author Organization [facility] t Address [address] [place] [address] Care Team Providers Name Role Phone [facility]pless Primary Care Physician MATT SIMPSON Attending Clinician Unavailable MATT SIMPSON Attending Clinician Unavailable Doctor Unassigned, [place] Attending Clinician Unavailable WALLY KRISHNAMURTHY Attending Clinician Unavailable Natacha Brewster Attending Clinician Payers Payer Name Policy Type Policy Number Effective Date Expiration Date Sarina castelan [facility] [id number] 2017 00:00:00 PLUS Problems This patient has [...] ers OPHEN INGREDI 07-27 ity of 00:00: [place] [facility] Propensi Inactiv Reductas ty to e 2-28 e adverse 00:00: Inhibito reaction 00 rs to drug Nitrogly Propensi Active 2017-03 cerin ty to 1-08 adverse 00:00: reaction 00 to drug Social History Social Habit Start Date Stop Date Quantity Comments Source Alcohol intake 2016-05-01 2016-05-01 Current [facility] es 00:00:00 00:00:00 non-drinker of Medical nter alcohol (finding) Sex Assigned At [birth year] [facility] 00:00:00 00:00:00 [facility] Smoking Status Start Date Stop [...] anjelica [facility] Center OXcarbazepi 2017-0 Yes 600mg Q.[id number] Take [address] ne 2-23 [id number] [facility] (TR[facility]PTAL) 10:23: 3D mouth 3 Med ical 600 MG 59 (three) Center tablet times daily. PARoxetine 2017-0 Yes 40mg QD Take [address] (PAXIL) 40 2-23 [facility] tablet 10:23: nightly. [address] 2017-0 Yes 600mg Q.19987055 Take [address] ne 2-23 [id number] [facility] (TRILEPTAL) 10:23: 3D mouth 3 Med ical 600 MG 59 (three) Center tablet times daily. PARoxetine 2017-0 Yes 40mg QD Take [address] (PAXIL) 40 2-23 [facility] tablet 10:23: nightly. [address] 2017-0 Yes 600mg Q.70192764 Take [address] ne 2-23 [id number] [facility] (TRILEPTAL) 10:23: 3D mouth 3 Med ical 600 MG 59 (three) Center tablet times daily. PARoxetine 2017-0 Yes 40mg QD Take [address] (PAXIL) 40 2-23 by [facility] MG tablet 10:23: nightly. [address] 2017-0 Yes 600mg Q.52184948 Take [address] ne 2-23 [id number] [facility] (TRILEPTAL) 10:23: 3D mouth 3 Med ical 600 MG 59 (three) Center tablet times daily. PARoxetine 2017-0 Yes 40mg QD Take [address] (PAXIL) 40 2-23 [facility] tablet 10:23: nightly. [address] 2017-0 Yes 600mg Q.24782576 Take [address] ne 2-23 [id number] [facility] (TRILEPTAL) 10:23: 3D mouth 3 Med ical 600 MG 59 (three) Center tablet times daily. PARoxetine 2017-0 Yes 40mg QD Take [address] (PAXIL) 40 2-23 by [facility] MG tablet 10:23: nightly. [address] 2017-0 Yes 600mg Q.94819686 Take [address] ne 2-23 [id number] [facility] (TRILEPTAL) 10:23: 3D mouth 3 Med ical 600 MG 59 (three) Center tablet times daily. PARoxetine 2017-0 Yes 40mg QD Take [address] (PAXIL) 40 2-23 by [facility] tablet 10:23: nightly. [address] 2017-0 Yes 600mg Q.58063278 Take [address] ne 2-23 [id number] [facility] (TRILEPTAL) 10:23: 3D mouth 3 Med ical 600 MG 59 (three) Center tablet times daily. PARoxetine 2017-0 Yes 40mg QD Take [address] (PAXIL) 40 2-23 by [facility] tablet 10:23: nightly. [address] 2017-0 Yes 600mg Q.99014489 Take [address] ne 2-23 [id number] mg by [facility] (TRILEPTAL) 10:23: 3D mouth 3 Med ical 600 MG 59 (three) Center tablet times daily. PARoxetine 2017-0 Yes 40mg QD Take [address] (PAXIL) 40 2-23 by [facility] MG tablet 10:23: nightly. [address] 2017-0 Yes 600mg Q.39143656 Take [address] ne 2-23 [id number] mg by [facility] (TRILEPTAL) 10:23: 3D mouth 3 Med ical 600 MG 59 (three) Center tablet times daily. PARoxetine 2017-0 Yes 40mg QD Take [address] (PAXIL) 40 2-23 by [facility] MG tablet 10:23: nightly. [address] OXcarbazepi 2017-0 Yes 600mg Q.55266919 Take [address] ne 2-23 [id number] mg by [facility] (TRILEPTAL) 10:23: 3D mouth 3 Med ical 600 MG 59 (three) Center tablet times daily. PARoxetine 2017-0 Yes 40mg QD Take [address] (PAXIL) 40 2-23 by mouth [facility] MG tablet 10:23: nightly. [address] OXcarbazepi 2017-0 Yes 600mg Q.37112007 Take [address] ne 2-23 8406758636 mg by [facility] (TRILEPTAL) 10:23: 3D mouth 3 Med ical 600 MG 59 (three) Center tablet times daily. OXcarbazepi 2017-0 Yes 600mg Q.66331161 Take [address] ne 2-23 8598283156 mg by [facility] (TRILEPTAL) 10:23: 3D mouth 3 Med ical 600 MG 59 (three) Center tablet times daily. PARoxetine 2017-0 Yes 40mg QD Take [address] (PAXIL) 40 2-23 by mouth [facility] MG tablet 10:23: nightly. Medi anjelica 59 Center OXcarbazepi 2017-0 Yes 600mg Q.98564539 Take [address] ne 2-23 [id number] mg by [facility] (TRILEPTAL) 10:23: 3D mouth 3 Med ical 600 MG 59 (three) Center tablet times daily. PARoxetine 2017-0 Yes 40mg QD Take [address] (PAXIL) 40 2-23 by mouth [facility] MG tablet 10:23: nightly. [facility] anjelica 59 Center OXcarbazepi 2017-0 Yes 600mg Q.63303474 Take [address] ne 2-23 4255173417 mg by [facility] (TRILEPTAL) 10:23: 3D mouth 3 Med ical 600 MG 59 (three) Center tablet times daily. PARoxetine 2017-0 Yes 40mg QD Take [address] (PAXIL) 40 2-23 by mouth [facility] MG tablet 10:23: nightly. [facility] anjelica 59 Center PARoxetine 2017-0 Yes 40mg QD Take [address] (PAXIL) 40 2-23 by mouth [facility] MG tablet 10:23: nightly. [facility] anjelica 59 Center OXcarbazepi 2017-0 Yes 600mg Q.99795167 Take [address] ne 2-23 [id number] mg by [facility] (TRILEPTAL) 10:23: 3D mouth 3 Med ical 600 MG 59 (three) Center tablet times daily. PARoxetine 2017-0 Yes 40mg QD Take [address] (PAXIL) 40 2-23 by mouth [facility] MG tablet 10:23: nightly. Medi anjelica 59 Center OXcarbazepi 2017-0 Yes 600mg Q.63978369 Take [address] ne 2-23 9066377525 mg by [facility] (TRILEPTAL) 10:23: 3D mouth 3 Med ical 600 MG 59 (three) Center tablet times daily. PARoxetine 2017-0 Yes 40mg QD Take [address] (PAXIL) 40 2-23 by mouth [facility] tablet 10:23: nightly. Medi anjelica 59 Center OXcarbazepi 2017-0 Yes 600mg Q.32966634 Take [address] ne 2-23 [id number] mg by [facility] (TRILEPTAL) 10:23: 3D mouth 3 Med ical 600 MG 59 (three) Center tablet times daily. PARoxetine 2017-0 Yes 40mg QD Take [address] (PAXIL) 40 2-23 by mouth [facility] tablet 10:23: nightly. Medi anjelica 59 Center OXcarbazepi 2017-0 Yes 600mg Q.29234516 Take [address] ne 2-23 6634704790 [facility] (TRILEPTAL) 10:23: 3D mouth [...] Goal Plan of Care Note [code = 97887-7] Goal Plan of Care Note [code = 31568-5] Goal Plan of Care Note [code = 35370-0] Goal Plan of Care Note [code = 58773-3] Goal Plan of Care Note [code = 53257-0] Goal Plan of Care Note [code = 53513-3] Goal Plan of Care Note [code = 84590-6] Goal Plan of Care Note [code = 17355-8] Goal Plan of Care Note [code = 01609-6] Goal Plan of Care Note [code = 26840-1] Goal Plan of Care Note [code = 38629-5] Goal Plan of Care Note [code = 91026-9] Goal Plan of Care Note [code = 94511-8] Goal Plan of Care Note [code = 55156-0] Goal Plan of Care Note [code = 40268-2] Goal Plan of Care Note [code = 46777-9] Goal Plan of Care Note [code = 07359-0] Goal Plan of Care Note [code = 67477-8] Goal Plan of Care Note [code = 41029-1] Goal Plan of Care Note [code = 48186-3] Goal Plan of Care Note [code = 32492-9] Goal Plan of Care Note [code = 10967-0] Goal Plan of Care Note [code = 70137-6] Goal Plan of Care Note [code = 57625-3] Goal Plan of Care Note [code = 19148-7] Goal Plan of Care Note [code = 46763-8] Goal Plan of Care Note [code = 40104-1] Goal Plan of Care Note [code = 59176-8] Goal Plan of Care Note [code = 84331-3] Goal Plan of Care Note [code = 01643-7] Goal Plan of Care Note [code = 96836-5] Goal Plan of Care Note [code = 90885-3] Goal Plan of Care Note [code = 43391-4] Goal Plan of Care Note [code = 36475-4] Goal Plan of Care Note [code = 23533-5] Goal Plan of Care Note [code = 08036-7] Goal Plan of Care Note [code = 17715-7] Goal Plan of Care Note [code = 63355-9] Goal Plan of Care Note [code = 79883-8] Goal Plan of Care Note [code = 26338-1] Goal Plan of Care Note [code = 51525-4] Goal Plan of Care Note [code = 97100-9] Goal Plan of Care Note [code = 86286-4] Goal Plan of Care Note [code = 55806-7] Goal Plan of Care Note [code = 56465-4] Goal Plan of Care Note [code = 02819-3] Goal Plan of Care Note [code = 00751-9] Goal Plan of Care Note [code = 36522-7] Goal Plan of Care Note [code = 01942-4] Goal Plan of Care Note [code = 42041-7] Goal Plan of Care Note [code = 89856-6] Goal Plan of Care Note [code = 12161-8] Goal Plan of Care Note [code = 54680-5] Goal Plan of Care Note [code = 48421-4] Goal Plan of Care Note [code = 68004-7] Goal Plan of Care Note [code = 04607-3] Goal Plan of Care Note [code = 62624-6] Goal Plan of Care Note [code = 36236-8] Goal Plan of Care Note [code = 38477-0] Goal Plan of Care Note [code = 74970-3] Goal Plan of Care Note [code = 76735-6] Goal Plan of Care Note [code = 21130-5] Goal Plan of Care Note [code = 43829-0] Goal Plan of Care Note [code = 82883-1] Goal Plan of Care Note [code = 16052-4] Goal Plan of Care Note [code = 31350-2] Goal Plan of Care Note [code = 00344-2] Goal Plan of Care Note [code = 98465-3] Goal Plan of Care Note [code = 06872-4] Goal Plan of Care Note [code = 35711-0] Goal Plan of Care Note [code = 87766-4] Goal Plan of Care Note [code = 90850-0] Goal Plan of Care Note [code = 36132-6] Goal Plan of Care Note [code = 17979-5] Goal Plan of Care Note [code = 95134-1] Goal Plan of Care Note [code = 43938-4] Goal Plan of Care Note [code = 12952-4] Goal Plan of Care Note [code = 17928-0] Goal Plan of Care Note [code = 72245-2] Goal Plan of Care Note [code = 85860-3] Goal Plan of Care Note [code = 40213-7] Goal Plan of Care Note [code = 63031-2] Goal Plan of Care Note [code = 80704-7] Goal Plan of Care Note [code = 38484-0] Goal Plan of Care Note [code = 56053-2] Goal Plan of Care Note [code = 63515-9] Goal Plan of Care Note [code = 12917-1] Goal Plan of Care Note [code = 77911-0] Goal Plan of Care Note [code = 64182-5] Goal Plan of Care Note [code = 47748-7] Goal Plan of Care Note [code = 60699-8] Goal Plan of Care Note [code = 47181-3] Goal Plan of Care Note [code = 35466-9] Goal Plan of Care Note [code = 87762-7] Goal Plan of Care Note [code = 98077-8] Goal Plan of Care Note [code = 90564-5] Goal Plan of Care Note [code = 98419-0] Goal Plan of Care Note [code = 41156-8] Goal Plan of Care Note [code = 27468-4] Goal Plan of Care Note [code = 76160-4] Goal Plan of Care Note [code = 10863-3] Goal Plan of Care Note [code = 25634-8] Goal Plan of Care Note [code = 05840-4] Goal Plan of Care Note [code = 73454-8] Goal Plan of Care Note [code = 00946-2] Goal Plan of Care Note [code = 16976-5] Goal Plan of Care Note [code = 48021-3] Goal Plan of Care Note [code = 20936-6] Goal Plan of Care Note [code = 59252-8] Goal Plan of Care Note [code = 75405-6] Goal Plan of Care Note [code = 58964-6] Goal Plan of Care Note [code = 31890-8] Goal Plan of Care Note [code = 13673-5] Goal Plan of Care Note [code = 25244-0] Goal Plan of Care Note [code = 41282-5] Goal Plan of Care Note [code = 88041-5] Goal Plan of Care Note [code = 34334-5] Goal Plan of Care Note [code = 59653-6] Goal Plan of Care Note [code = 85693-8] Goal Plan of Care Note [code = 10312-1] Goal Plan of Care Note [code = 02770-9] Goal Plan of Care Note [code = 34345-9] Goal Plan of Care Note [code = 06475-2] Goal Plan of Care Note [code = 54017-2] Goal Plan of Care Note [code = 52087-7] Goal Plan of Care Note [code = 39213-3] Goal Plan of Care Note [code = 70114-0] Goal Plan of Care Note [code = 69279-6] Goal Plan of Care Note [code = 79375-7] Goal Plan of Care Note [code = 37262-8] Goal Plan of Care Note [code = 04063-6] Goal Plan of Care Note [code = 62766-6] Goal Plan of Care Note [code = 23521-1] Goal Plan of Care Note [code = 28208-3] Goal Plan of Care Note [code = 30432-6] Goal Plan of Care Note [code = 80290-1] Goal Plan of Care Note [code = 01283-7] Goal Plan of Care Note [code = 81635-5] Goal Plan of Care Note [code = 71367-9] Goal Plan of Care Note [code = 94239-6] Goal Plan of Care Note [code = 69902-4] Goal Plan of Care Note [code = 97858-6] Goal Plan of Care Note [code = 25632-2] Goal Plan of Care Note [code = 22176-9] Goal Plan of Care Note [code = 51329-7] Goal Plan of Care Note [code = 52588-7] Goal Plan of Care Note [code = 30478-0] Goal Plan of Care Note [code = 02105-8] Goal Plan of Care Note [code = 64805-5] Goal Plan of Care Note [code = 49891-3] Goal Plan of Care Note [code = 49245-0] Goal Plan of Care Note [code = 40936-5] Goal Plan of Care Note [code = 04565-4] Goal Plan of Care Note [code = 53889-7] Goal Plan of Care Note [code = 37124-0] Goal Plan of Care Note [code = 13486-7] Goal Plan of Care Note [code = 09301-6] Goal Plan of Care Note [code = 76421-2] Goal Plan of Care Note [code = 59056-7] Goal Plan of Care Note [code = 35422-3] Goal Plan of Care Note [code = 58989-4] Goal Plan of Care Note [code = 56358-0] Goal Plan of Care Note [code = 41359-7] Goal Plan of Care Note [code = 39886-3] Goal Plan of Care Note [code = 70000-3] Goal Plan of Care Note [code = 47179-4] Goal Plan of Care Note [code = 29258-3] Goal Plan of Care Note [code = 16480-1] Goal Plan of Care Note [code = 58853-9] Goal Plan of Care Note [code = 39759-0] Goal Plan of Care Note [code = 12968-6] Goal Plan of Care Note [code = 45596-4] Goal Plan of Care Note [code = 30654-4] Goal Plan of Care Note [code = 85560-8] Goal Plan of Care Note [code = 02468-9] Goal Plan of Care Note [code = 90766-7] Goal Plan of Care Note [code = 40257-7] Goal Plan of Care Note [code = 82901-8] Goal Plan of Care Note [code = 31028-5] Goal Plan of Care Note [code = 72581-2] Goal Plan of Care Note [code = 30044-6] Goal Plan of Care Note [code = 24704-2] Goal Plan of Care Note [code = 64842-1] Goal Plan of Care Note [code = 50980-9] Goal Plan of Care Note [code = 71441-1] Goal Plan of Care Note [code = 10704-4] Goal Plan of Care Note [code = 23912-9] Goal Plan of Care Note [code = 65758-5] Goal Plan of Care Note [code = 88626-1] Goal Plan of Care Note [code = 04390-3] Goal Plan of Care Note [code = 43117-3] Goal Plan of Care Note [code = 52457-5] Goal Plan of Care Note [code = 43742-1] Goal Plan of Care Note [code = 67987-2] Goal Plan of Care Note [code = 65749-1] Goal Plan of Care Note [code = 41066-0] Goal Plan of Care Note [code = 25657-3] Goal Plan of Care Note [code = 29099-0] Goal Plan of Care Note [code = 97759-9] Goal Plan of Care Note [code = 77516-9] Goal Plan of Care Note [code = 84371-3] Goal Plan of Care Note [code = 61662-2] Goal Plan of Care Note [code = 56814-8] Goal Plan of Care Note [code = 63151-1] Goal Plan of Care Note [code = 89675-1] Goal Plan of Care Note [code = 04377-7] Goal Plan of Care Note [code = 86467-8] Goal Plan of Care Note [code = 99029-4] Encounters Start End Encounter Admission Attending Care Care Encounter Source Date/Time Date/Time Type Type Clinicians Facility Department ID 2021-06-01 Outpatient [facility] [id number] [place] 01:36:[id number] [facility] 2022-02-11 2022-02-11 Outpatient SFA SFA 32528-4 022 Cristian 09:04:48 09:04:48 1206 F Jerman 2022-02-10 2022-02-10 Outpatient SFA SFA 08977-6 022 Cristian 09:29:34 09:29:34 1205 F Jerman 2022-02-10 2022-02-10 Outpatient [id number]- [id number] 4y68f3-6 00:00:00 00:00:00 Visit 4089-4cab 089-4cab-9 -6su0-h1r bf5-j6b595 485imah76 bafa93 2022-01-10 2022-01-[address] [facility] [id number] 022 Cristian 09:16:14 09:16:14 1104 F Jerman 2022-01-10 2022-01-10 Outpatient g9tvnyr9- [id number] f2 accaa6-a 00:00:00 00:00:00 Visit aca9-4c83 ca9-4c83-a -u7cj-rt6 7eb-bc13f3 6r4v835c7 f032f9 2021-12-19 2021-12-19 Outpatient SFA SFA 97067-8 022 Cristian 16:11:31 16:11:31 1013 F Jerman 2021-12-19 2021-12-19 Outpatient [id number] 466cae-a 00:00:00 00:00:00 Visit t224-418y 770-441f-a -adae-62b amelia-62bace vmulq12vx fd81af 2021-09-17 2021-09-17 Outpatient fjf5fssv- [id number] aa r5qbqe-7 00:00:00 00:00:00 Visit 935a-4f50 35a-4f50-b -o89f-v2k 77d-c2ba85 a159858f5 1264a6 2020-08-03 2020-08-03 Outpatient MATT [facility]SQUEZ [facility] [id number] [facility] 10:00:00 10:00:00 MATT SIMPSON [facility] 2020-07-25 2020-07-25 Orders Doctor FISH [id number] 00:00:00 00:00:00 Only Unassigned, [place] 350.1.13.10 [place] [facility] 4.2.7.2.686 [id number] 2019-09-26 2019-09-26 Outpatient Bertin KRISHNAMURTHY [facility] [id number] [facility] 16:00:00 16:00:00 WALLY pat [facility] 2018-10-21 2018-10-21 Telephone [place], [facility] [id number] 00:00:00 00:00:00 Natacha Nguyen 350.1.13.10 [place] 4.2.7.2.686 [place] [id number] nal 204 Building Results Test Description Test Time Test Comments Results Result Comments Source TSH, THIRD GENERATION 2021-06-27 05:15:49 Test Item Value Reference Range Interpretation Comme nts TSH, THIRD GENERATION (test code = 2821) 2.080 UIU/ML 0.400-4.100 HEMOGLOBIN [id number] 03:46:00 Test Item Value Reference Range Interpretation Comments HEMOGLOBIN A1c (test 6.6 % 4.2-5.6 H [employer] [employer] [facility]ABETES code = 70930) ASSOCIATION IDELINES FOR HGB A1C: PREDIABETES/INC REASED [...] TESTING PER FORMED ATCLINICAL PATH [facility]LOGY LABORATORIES, [facility]. [address] [place] [address] 83 LABORATORY DIRE CTOR: DIANA RUSS M.D. CLIA NUMBER [id number] [place]. [id number] LIPID [id number] 02:59:52 Test Item Value Reference Range Interpretation [...] MOREINFORMATION , SEE CLIENT ANNOUNCE MENT AT [email or web address] RISK RATIO LDL/HDL 4.02 RATIO <3.22 H (test code = 2238) [id number] 00:00:00 Test Item Value Reference Range Interpretation Comments TSH, THIRD GENERATION (test code 2.080 UIU/ML = 2821) [id number] 00:00:00 Test Item Value Reference Range Interpretation Comments TSH, THIRD GENERATION (test code 2.080 UIU/ML = 2821) [id number] 00:00:00 Test Item Value Reference Range Interpretation Comments TSH, THIRD GENERATION (test code 2.080 UIU/ML = 2821) LIPID [id number] 00:00:00 Test Item Value Reference Range Interpretation Comments CHOLESTEROL (test code = 2210) 292 MG/DL TRIGLYCERIDES (test code = 2232) 184 MG/DL HDL CHOLESTEROL (test code = 2220) 51 MG/DL CALC LDL CHOL (test code = 2237) 205 MG/DL RISK RATIO LDL/HDL (test code = 4.02 RATIO 2238) LIPID [id number] 00:00:00 Test Item Value Reference Range Interpretation Comments CHOLESTEROL (test code = 2210) 292 MG/DL TRIGLYCERIDES (test code = 2232) 184 MG/DL HDL CHOLESTEROL (test code = 2220) 51 MG/DL CALC LDL CHOL (test code = 2237) 205 MG/DL RISK RATIO LDL/HDL (test code = 4.02 RATIO 2238) HEMOGLOBIN [id number] 00:00:00 Test Item Value Reference Range Interpretation Comments HEMOGLOBIN A1c (test code = 70339) 6.6 % HEMOGLOBIN [id number] 00:00:00 Test Item Value Reference Range Interpretation Comments HEMOGLOBIN A1c (test code = 07210) 6.6 % HEMOGLOBIN [id number] 00:00:00 Test Item Value Reference Range Interpretation Comments HEMOGLOBIN A1c (test code = 36627) 6.6 % [id number] 00:00:00 Test Item Value Reference Range Interpretation Comments TSH, THIRD GENERATION (test code 2.080 UIU/ML = 2821) [id number] 00:00:00 Test Item Value Reference Range Interpretation Comments TSH, THIRD GENERATION (test code 2.080 UIU/ML = 2821) [id number] 00:00:00 Test Item Value Reference Range Interpretation Comments TSH, THIRD GENERATION (test code 2.080 UIU/ML = 2821) LIPID [id number] 00:00:00 Test Item Value Reference Range Interpretation Comments CHOLESTEROL (test code = 2210) 292 MG/DL TRIGLYCERIDES (test code = 2232) 184 MG/DL HDL CHOLESTEROL (test code = 2220) 51 MG/DL CALC LDL CHOL (test code = 2237) 205 MG/DL RISK RATIO LDL/HDL (test code = 4.02 RATIO 2238) LIPID [id number] 00:00:00 Test Item Value Reference Range Interpretation Comments CHOLESTEROL (test code = 2210) 292 MG/DL TRIGLYCERIDES (test code = 2232) 184 MG/DL HDL CHOLESTEROL (test code = 2220) 51 MG/DL CALC LDL CHOL (test code = 2237) 205 MG/DL RISK RATIO LDL/HDL (test code = 4.02 RATIO 2238) HEMOGLOBIN [id number] 00:00:00 Test Item Value Reference Range Interpretation Comments HEMOGLOBIN A1c (test code = 08190) 6.6 % HEMOGLOBIN [id number] 00:00:00 Test Item Value Reference Range Interpretation Comments HEMOGLOBIN A1c (test code = 38261) 6.6 % HEMOGLOBIN [id number] 00:00:00 Test Item Value Reference Range Interpretation Comments HEMOGLOBIN A1c (test code = 58217) 6.6 % [id number] 00:00:00 Test Item Value Reference Range Interpretation Comments TSH, THIRD GENERATION (test code 2.080 UIU/ML = 2821) [id number] 00:00:00 Test Item Value Reference Range Interpretation Comments TSH, THIRD GENERATION (test code 2.080 UIU/ML = 2821) LIPID [id number] 00:00:00 Test Item Value Reference Range Interpretation Comments CHOLESTEROL (test code = 2210) 292 MG/DL TRIGLYCERIDES (test code = 2232) 184 MG/DL HDL CHOLESTEROL (test code = 2220) 51 MG/DL CALC LDL CHOL (test code = 2237) 205 MG/DL RISK RATIO LDL/HDL (test code = 4.02 RATIO 2238) HEMOGLOBIN [id number] 00:00:00 Test Item Value Reference Range Interpretation Comments HEMOGLOBIN A1c (test code = 26286) 6.6 % HEMOGLOBIN [id number] 00:00:00 Test Item Value Reference Range Interpretation Comments HEMOGLOBIN A1c (test code = 90068) 6.6 % [id number] 00:00:00 Test Item Value Reference Range Interpretation Comments TSH, THIRD GENERATION (test code 2.080 UIU/ML = 2821) [id number] 00:00:00 Test Item Value Reference Range Interpretation Comments TSH, THIRD GENERATION (test code 2.080 UIU/ML = 2821) [id number] 00:00:00 Test Item Value Reference Range Interpretation Comments TSH, THIRD GENERATION (test code 2.080 UIU/ML = 2821) LIPID [id number] 00:00:00 Test Item Value Reference Range Interpretation Comments CHOLESTEROL (test code = 2210) 292 MG/DL TRIGLYCERIDES (test code = 2232) 184 MG/DL HDL CHOLESTEROL (test code = 2220) 51 MG/DL CALC LDL CHOL (test code = 2237) 205 MG/DL RISK RATIO LDL/HDL (test code = 4.02 RATIO 2238) LIPID [id number] 00:00:00 Test Item Value Reference Range Interpretation Comments CHOLESTEROL (test code = 2210) 292 MG/DL TRIGLYCERIDES (test code = 2232) 184 MG/DL HDL CHOLESTEROL (test code = 2220) 51 MG/DL CALC LDL CHOL (test code = 2237) 205 MG/DL RISK RATIO LDL/HDL (test code = 4.02 RATIO 2238) HEMOGLOBIN [id number] 00:00:00 Test Item Value Reference Range Interpretation Comments HEMOGLOBIN A1c (test code = 45615) 6.6 % HEMOGLOBIN [id number] 00:00:00 Test Item Value Reference Range Interpretation Comments HEMOGLOBIN A1c (test code = 86231) 6.6 % HEMOGLOBIN [id number] 00:00:00 Test Item Value Reference Range Interpretation Comments HEMOGLOBIN A1c (test code = 34741) 6.6 % HEMOGLOBIN [id number] 00:00:00 Test Item Value Reference Range Interpretation Comments HEMOGLOBIN A1c (test code = 37318) 6.8 % HEMOGLOBIN [id number] 00:00:00 Test Item Value Reference Range Interpretation Comments HEMOGLOBIN A1c (test code = 37729) 6.8 % HEMOGLOBIN [id number] 00:00:00 Test Item Value Reference Range Interpretation Comments HEMOGLOBIN A1c (test code = 14273) 6.8 % LIPID [id number] 00:00:00 Test Item Value Reference Range Interpretation Comments CHOLESTEROL (test code = 2210) 303 MG/DL TRIGLYCERIDES (test code = 2232) 191 MG/DL HDL CHOLESTEROL (test code = 2220) 61 MG/DL CALC LDL CHOL (test code = 2237) 205 MG/DL RISK RATIO LDL/HDL (test code = 3.36 RATIO 2238) LIPID [id number] 00:00:00 Test Item Value Reference Range Interpretation Comments CHOLESTEROL (test code = 2210) 303 MG/DL TRIGLYCERIDES (test code = 2232) 191 MG/DL HDL CHOLESTEROL (test code = 2220) 61 MG/DL CALC LDL CHOL (test code = 2237) 205 MG/DL RISK RATIO LDL/HDL (test code = 3.36 RATIO 2238) [id number] 00:00:00 Test Item Value Reference Range Interpretation Comments TSH, THIRD GENERATION (test code 0.769 UIU/ML = 2821) [id number] 00:00:00 Test Item Value Reference Range Interpretation Comments TSH, THIRD GENERATION (test code 0.769 UIU/ML = 2821) [id number] 00:00:00 Test Item Value Reference Range Interpretation Comments TSH, THIRD GENERATION (test code 0.769 UIU/ML = 2821) COMPREHENSIVE METABOLIC [id number] 00:00:00 Test Item Value Reference Range Interpretation Comments GLUCOSE (test code = 2217) 131 MG/DL BUN (test code = 2208) 13 MG/DL CREATININE (test code = 2214) 0.65 MG/DL eGFR AMER. (test code 113 ML/MIN/1.73 = 03200) eGFR NON- AMER. (test 97 ML/MIN/1.73 code = 25669) CALC BUN/CREAT (test code = 20 RATIO [...] code = 2219) 23 U/L COMPREHENSIVE METABOLIC [id number] 00:00:00 Test Item Value Reference Range Interpretation Comments GLUCOSE (test code = 2217) 131 MG/DL BUN (test code = 2208) 13 MG/DL CREATININE (test code = 2214) 0.65 MG/DL eGFR AMER. (test code 113 ML/MIN/1.73 = 59898) eGFR NON- AMER. (test 97 ML/MIN/1.73 code = 41963) CALC BUN/CREAT (test code = 20 RATIO [...] (test code = 2219) 23 U/L HEMOGLOBIN [id number] 00:00:00 Test Item Value Reference Range Interpretation Comments HEMOGLOBIN A1c (test code = 15512) 6.8 % HEMOGLOBIN [id number] 00:00:00 Test Item Value Reference Range Interpretation Comments HEMOGLOBIN A1c (test code = 02096) 6.8 % HEMOGLOBIN [id number] 00:00:00 Test Item Value Reference Range Interpretation Comments HEMOGLOBIN A1c (test code = 13128) 6.8 % LIPID [id number] 00:00:00 Test Item Value Reference Range Interpretation Comments CHOLESTEROL (test code = 2210) 303 MG/DL TRIGLYCERIDES (test code = 2232) 191 MG/DL HDL CHOLESTEROL (test code = 2220) 61 MG/DL CALC LDL CHOL (test code = 2237) 205 MG/DL RISK RATIO LDL/HDL (test code = 3.36 RATIO 2238) LIPID [id number] 00:00:00 Test Item Value Reference Range Interpretation Comments CHOLESTEROL (test code = 2210) 303 MG/DL TRIGLYCERIDES (test code = 2232) 191 MG/DL HDL CHOLESTEROL (test code = 2220) 61 MG/DL CALC LDL CHOL (test code = 2237) 205 MG/DL RISK RATIO LDL/HDL (test code = 3.36 RATIO 2238) [id number] 00:00:00 Test Item Value Reference Range Interpretation Comments TSH, THIRD GENERATION (test code 0.769 UIU/ML = 2821) [id number] 00:00:00 Test Item Value Reference Range Interpretation Comments TSH, THIRD GENERATION (test code 0.769 UIU/ML = 2821) [id number] 00:00:00 Test Item Value Reference Range Interpretation Comments TSH, THIRD GENERATION (test code 0.769 UIU/ML = 2821) COMPREHENSIVE METABOLIC [id number] 00:00:00 Test Item Value Reference Range Interpretation Comments GLUCOSE (test code = 2217) 131 MG/DL BUN (test code = 2208) 13 MG/DL CREATININE (test code = 2214) 0.65 MG/DL eGFR AMER. (test code 113 ML/MIN/1.73 = 35207) eGFR NON- AMER. (test 97 ML/MIN/1.73 code = 28639) CALC BUN/CREAT (test code = 20 RATIO [...] = <0.2 MG/DL 2207) ALKALINE PHOSPHATASE (test 139 U/L code = 2204) AST (test code = 2218) 17 U/L ALT (test code = 2219) 23 U/L COMPREHENSIVE METABOLIC [id number] 00:00:00 Test Item Value Reference Range Interpretation Comments GLUCOSE (test code = 2217) 131 MG/DL BUN (test code = 2208) 13 MG/DL CREATININE (test code = 2214) 0.65 MG/DL eGFR AMER. (test code 113 ML/MIN/1.73 = 30396) eGFR NON- AMER. (test 97 ML/MIN/1.73 code = 55266) CALC BUN/CREAT (test code = 20 RATIO [...] = <0.2 MG/DL 2207) ALKALINE PHOSPHATASE (test 139 U/L code = 2204) AST (test code = 2218) 17 U/L ALT (test code = 2219) 23 U/L HEMOGLOBIN [id number] 00:00:00 Test Item Value Reference Range Interpretation Comments HEMOGLOBIN A1c (test code = 77594) 6.8 % HEMOGLOBIN [id number] 00:00:00 Test Item Value Reference Range Interpretation Comments HEMOGLOBIN A1c (test code = 89324) 6.8 % LIPID [id number] 00:00:00 Test Item Value Reference Range Interpretation Comments CHOLESTEROL (test code = 2210) 303 MG/DL TRIGLYCERIDES (test code = 2232) 191 MG/DL HDL CHOLESTEROL (test code = 2220) 61 MG/DL CALC LDL CHOL (test code = 2237) 205 MG/DL RISK RATIO LDL/HDL (test code = 3.36 RATIO 2238) [id number] 00:00:00 Test Item Value Reference Range Interpretation Comments TSH, THIRD GENERATION (test code 0.769 UIU/ML = 2821) [id number] 00:00:00 Test Item Value Reference Range Interpretation Comments TSH, THIRD GENERATION (test code 0.769 UIU/ML = 2821) COMPREHENSIVE METABOLIC [id number] 00:00:00 Test Item Value Reference Range Interpretation Comments GLUCOSE (test code = 2217) 131 MG/DL BUN (test code = 2208) 13 MG/DL CREATININE (test code = 2214) 0.65 MG/DL eGFR AMER. (test code 113 ML/MIN/1.73 = 18998) eGFR NON- AMER. (test 97 ML/MIN/1.73 code = 52139) CALC BUN/CREAT (test code = 20 RATIO [...] (test code = 2219) 23 U/L HEMOGLOBIN [id number] 00:00:00 Test Item Value Reference Range Interpretation Comments HEMOGLOBIN A1c (test code = 34274) 6.8 % HEMOGLOBIN [id number] 00:00:00 Test Item Value Reference Range Interpretation Comments HEMOGLOBIN A1c (test code = 45562) 6.8 % HEMOGLOBIN [id number] 00:00:00 Test Item Value Reference Range Interpretation Comments HEMOGLOBIN A1c (test code = 19313) 6.8 % LIPID [id number] 00:00:00 Test Item Value Reference Range Interpretation Comments CHOLESTEROL (test code = 2210) 303 MG/DL TRIGLYCERIDES (test code = 2232) 191 MG/DL HDL CHOLESTEROL (test code = 2220) 61 MG/DL CALC LDL CHOL (test code = 2237) 205 MG/DL RISK RATIO LDL/HDL (test code = 3.36 RATIO 2238) LIPID [id number] 00:00:00 Test Item Value Reference Range Interpretation Comments CHOLESTEROL (test code = 2210) 303 MG/DL TRIGLYCERIDES (test code = 2232) 191 MG/DL HDL CHOLESTEROL (test code = 2220) 61 MG/DL CALC LDL CHOL (test code = 2237) 205 MG/DL RISK RATIO LDL/HDL (test code = 3.36 RATIO 2238) [id number] 00:00:00 Test Item Value Reference Range Interpretation Comments TSH, THIRD GENERATION (test code 0.769 UIU/ML = 2821) [id number] 00:00:00 Test Item Value Reference Range Interpretation Comments TSH, THIRD GENERATION (test code 0.769 UIU/ML = 2821) [id number] 00:00:00 Test Item Value Reference Range Interpretation Comments TSH, THIRD GENERATION (test code 0.769 UIU/ML = 2821) COMPREHENSIVE METABOLIC [id number] 00:00:00 Test Item Value Reference Range Interpretation Comments GLUCOSE (test code = 2217) 131 MG/DL BUN (test code = 2208) 13 MG/DL CREATININE (test code = 2214) 0.65 MG/DL eGFR AMER. (test code 113 ML/MIN/1.73 = 55657) eGFR NON- AMER. (test 97 ML/MIN/1.73 code = 69938) CALC BUN/CREAT (test code = 20 RATIO [...] = <0.2 MG/DL 2207) ALKALINE PHOSPHATASE (test 139 U/L code = 2204) AST (test code = 2218) 17 U/L ALT (test code = 2219) 23 U/L COMPREHENSIVE METABOLIC [id number] 00:00:00 Test Item Value Reference Range Interpretation Comments GLUCOSE (test code = 2217) 131 MG/DL BUN (test code = 2208) 13 MG/DL CREATININE (test code = 2214) 0.65 MG/DL eGFR AMER. (test code 113 ML/MIN/1.73 = 06152) eGFR NON- AMER. (test 97 ML/MIN/1.73 code = 09105) CALC BUN/CREAT (test code = 20 RATIO [...] = <0.2 MG/DL 2207) ALKALINE PHOSPHATASE (test 139 U/L code = 2204) AST (test code = 2218) 17 U/L ALT (test code = 2219) 23 U/L HEMOGLOBIN [id number] 00:00:00 Test Item Value Reference Range Interpretation Comments HEMOGLOBIN A1c (test code = 23739) 6.6 % HEMOGLOBIN [id number] 00:00:00 Test Item Value Reference Range Interpretation Comments HEMOGLOBIN A1c (test code = 18459) 6.6 % HEMOGLOBIN [id number] 00:00:00 Test Item Value Reference Range Interpretation Comments HEMOGLOBIN A1c (test code = 58957) 6.6 % LIPID [id number] 00:00:00 Test Item Value Reference Range Interpretation Comments CHOLESTEROL (test code = 2210) 261 MG/DL TRIGLYCERIDES (test code = 2232) 159 MG/DL HDL CHOLESTEROL (test code = 2220) 82 MG/DL CALC LDL CHOL (test code = 2237) 150 MG/DL RISK RATIO LDL/HDL (test code = 1.83 RATIO 2238) LIPID [id number] 00:00:00 Test Item Value Reference Range Interpretation Comments CHOLESTEROL (test code = 2210) 261 MG/DL TRIGLYCERIDES (test code = 2232) 159 MG/DL HDL CHOLESTEROL (test code = 2220) 82 MG/DL CALC LDL CHOL (test code = 2237) 150 MG/DL RISK RATIO LDL/HDL (test code = 1.83 RATIO 2238) COMPREHENSIVE METABOLIC [id number] 00:00:00 Test Item Value Reference Range Interpretation Comments GLUCOSE (test code = 2217) 144 MG/DL BUN (test code = 2208) 15 MG/DL CREATININE (test code = 2214) 0.85 MG/DL eGFR AMER. (test code 87 ML/MIN/1.73 = 84189) eGFR NON- AMER. (test 75 ML/MIN/1.73 code = 13893) CALC BUN/CREAT (test code = 18 RATIO [...] code = 2219) 50 U/L COMPREHENSIVE METABOLIC [id number] 00:00:00 Test Item Value Reference Range Interpretation Comments GLUCOSE (test code = 2217) 144 MG/DL BUN (test code = 2208) 15 MG/DL CREATININE (test code = 2214) 0.85 MG/DL eGFR AMER. (test code 87 ML/MIN/1.73 = 56521) eGFR NON- AMER. (test 75 ML/MIN/1.73 code = 67502) CALC BUN/CREAT (test code = 18 RATIO [...] THYROX. BIND. CAPAC. (test code 1.1 = 58065) T4 (THYROXINE) (test code = 4.3 UG/DL 2819) CORRECTED T4 (FTI) (test code = 3.9 UG/DL 2820) TSH, THIRD GENERATION (test 18.900 UIU/ML code = 2821) THYROID II PROFILE (T3U, T4, T7, TSH)[id number] 00:00:00 Test Item Value Reference Range Interpretation Comments T-UPTAKE (test code = 2816) 30.2 % THYROX. BIND. CAPAC. (test code 1.1 = 42182) T4 (THYROXINE) (test code = 4.3 UG/DL 2819) CORRECTED T4 (FTI) (test code = 3.9 UG/DL 2820) TSH, THIRD GENERATION (test 18.900 UIU/ML code = 2821) HEMOGLOBIN [id number] 00:00:00 Test Item Value Reference Range Interpretation Comments HEMOGLOBIN A1c (test code = 47790) 6.6 % HEMOGLOBIN [id number] 00:00:00 Test Item Value Reference Range Interpretation Comments HEMOGLOBIN A1c (test code = 96957) 6.6 % HEMOGLOBIN [id number] 00:00:00 Test Item Value Reference Range Interpretation Comments HEMOGLOBIN A1c (test code = 39301) 6.6 % LIPID [id number] 00:00:00 Test Item Value Reference Range Interpretation Comments CHOLESTEROL (test code = 2210) 261 MG/DL TRIGLYCERIDES (test code = 2232) 159 MG/DL HDL CHOLESTEROL (test code = 2220) 82 MG/DL CALC LDL CHOL (test code = 2237) 150 MG/DL RISK RATIO LDL/HDL (test code = 1.83 RATIO 2238) LIPID [id number] 00:00:00 Test Item Value Reference Range Interpretation Comments CHOLESTEROL (test code = 2210) 261 MG/DL TRIGLYCERIDES (test code = 2232) 159 MG/DL HDL CHOLESTEROL (test code = 2220) 82 MG/DL CALC LDL CHOL (test code = 2237) 150 MG/DL RISK RATIO LDL/HDL (test code = 1.83 RATIO 2238) COMPREHENSIVE METABOLIC [id number] 00:00:00 Test Item Value Reference Range Interpretation Comments GLUCOSE (test code = 2217) 144 MG/DL BUN (test code = 2208) 15 MG/DL CREATININE (test code = 2214) 0.85 MG/DL eGFR AMER. (test code 87 ML/MIN/1.73 = 06425) eGFR NON- AMER. (test 75 ML/MIN/1.73 code = 90011) CALC BUN/CREAT (test code = 18 RATIO [...] code = 2219) 50 U/L COMPREHENSIVE METABOLIC [id number] 00:00:00 Test Item Value Reference Range Interpretation Comments GLUCOSE (test code = 2217) 144 MG/DL BUN (test code = 2208) 15 MG/DL CREATININE (test code = 2214) 0.85 MG/DL eGFR AMER. (test code 87 ML/MIN/1.73 = 76483) eGFR NON- AMER. (test 75 ML/MIN/1.73 code = 66172) CALC BUN/CREAT (test code = 18 RATIO [...] THYROX. BIND. CAPAC. (test code 1.1 = 30091) T4 (THYROXINE) (test code = 4.3 UG/DL 2819) CORRECTED T4 (FTI) (test code = 3.9 UG/DL 2820) TSH, THIRD GENERATION (test 18.900 UIU/ML code = 2821) THYROID II PROFILE (T3U, T4, T7, TSH)2020-05-23 00:00:00 Test Item Value Reference Range Interpretation Comments T-UPTAKE (test code = 2817) 30.2 % THYROX. BIND. CAPAC. (test code 1.1 = 80089) T4 (THYROXINE) (test code = 4.3 UG/DL 2819) CORRECTED T4 (FTI) (test code = 3.9 UG/DL 2820) TSH, THIRD GENERATION (test 18.900 UIU/ML code = 2821) HEMOGLOBIN [id number] 00:00:00 Test Item Value Reference Range Interpretation Comments HEMOGLOBIN A1c (test code = 95490) 6.6 % HEMOGLOBIN [id number] 00:00:00 Test Item Value Reference Range Interpretation Comments HEMOGLOBIN A1c (test code = 60536) 6.6 % LIPID [id number] 00:00:00 Test Item Value Reference Range Interpretation Comments CHOLESTEROL (test code = 2210) 261 MG/DL TRIGLYCERIDES (test code = 2232) 159 MG/DL HDL CHOLESTEROL (test code = 2220) 82 MG/DL CALC LDL CHOL (test code = 2237) 150 MG/DL RISK RATIO LDL/HDL (test code = 1.83 RATIO 2238) COMPREHENSIVE METABOLIC [id number] 00:00:00 Test Item Value Reference Range Interpretation Comments GLUCOSE (test code = 2217) 144 MG/DL BUN (test code = 2208) 15 MG/DL CREATININE (test code = 2214) 0.85 MG/DL eGFR AMER. (test code 87 ML/MIN/1.73 = 15528) eGFR NON- AMER. (test 75 ML/MIN/1.73 code = 80075) CALC BUN/CREAT (test code = 18 RATIO [...] THYROX. BIND. CAPAC. (test code 1.1 = 18027) T4 (THYROXINE) (test code = 4.3 UG/DL 281) CORRECTED T4 (FTI) (test code = 3.9 UG/DL 2820) TSH, THIRD GENERATION (test 18.900 UIU/ML code = 2821) HEMOGLOBIN [id number] 00:00:00 Test Item Value Reference Range Interpretation Comments HEMOGLOBIN A1c (test code = 75188) 6.6 % HEMOGLOBIN [id number] 00:00:00 Test Item Value Reference Range Interpretation Comments HEMOGLOBIN A1c (test code = 64583) 6.6 % HEMOGLOBIN [id number] 00:00:00 Test Item Value Reference Range Interpretation Comments HEMOGLOBIN A1c (test code = 13506) 6.6 % LIPID [id number] 00:00:00 Test Item Value Reference Range Interpretation Comments CHOLESTEROL (test code = 2210) 261 MG/DL TRIGLYCERIDES (test code = 2232) 159 MG/DL HDL CHOLESTEROL (test code = 2220) 82 MG/DL CALC LDL CHOL (test code = 2237) 150 MG/DL RISK RATIO LDL/HDL (test code = 1.83 RATIO 2238) LIPID [id number] 00:00:00 Test Item Value Reference Range Interpretation Comments CHOLESTEROL (test code = 2210) 261 MG/DL TRIGLYCERIDES (test code = 2232) 159 MG/DL HDL CHOLESTEROL (test code = 2220) 82 MG/DL CALC LDL CHOL (test code = 2237) 150 MG/DL RISK RATIO LDL/HDL (test code = 1.83 RATIO 2238) COMPREHENSIVE METABOLIC [id number] 00:00:00 Test Item Value Reference Range Interpretation Comments GLUCOSE (test code = 2217) 144 MG/DL BUN (test code = 2208) 15 MG/DL CREATININE (test code = 2214) 0.85 MG/DL eGFR AMER. (test code 87 ML/MIN/1.73 = 32380) eGFR NON- AMER. (test 75 ML/MIN/1.73 code = 90023) CALC BUN/CREAT (test code = 18 RATIO [...] code = 2219) 50 U/L COMPREHENSIVE METABOLIC [id number] 00:00:00 Test Item Value Reference Range Interpretation Comments GLUCOSE (test code = 2217) 144 MG/DL BUN (test code = 2208) 15 MG/DL CREATININE (test code = 2214) 0.85 MG/DL eGFR AMER. (test code 87 ML/MIN/1.73 = 52690) eGFR NON- AMER. (test 75 ML/MIN/1.73 code = 23151) CALC BUN/CREAT (test code = 18 RATIO [...] THYROX. BIND. CAPAC. (test code 1.1 = 68153) T4 (THYROXINE) (test code = 4.3 UG/DL 2819) CORRECTED T4 (FTI) (test code = 3.9 UG/DL 2820) TSH, THIRD GENERATION (test 18.900 UIU/ML code = 2821) THYROID II PROFILE (T3U, T4, T7, TSH)2020-05-23 00:00:00 Test Item Value Reference Range Interpretation Comments T-UPTAKE (test code = 2817) 30.2 % THYROX. BIND. CAPAC. (test code 1.1 = 01358) T4 (THYROXINE) (test code = 4.3 UG/DL 2819) CORRECTED T4 (FTI) (test code = 3.9 UG/DL 2820) TSH, THIRD GENERATION (test 18.900 UIU/ML code = 2821) HEMOGLOBIN [id number] 00:00:00 Test Item Value Reference Range Interpretation Comments HEMOGLOBIN A1c (test code = 85738) 6.7 % HEMOGLOBIN [id number] 00:00:00 Test Item Value Reference Range Interpretation Comments HEMOGLOBIN A1c (test code = 23201) 6.7 % HEMOGLOBIN [id number] 00:00:00 Test Item Value Reference Range Interpretation Comments HEMOGLOBIN A1c (test code = 67325) 6.7 % LIPID [id number] 00:00:00 Test Item Value Reference Range Interpretation Comments CHOLESTEROL (test code = 2210) 267 MG/DL TRIGLYCERIDES (test code = 2232) 137 MG/DL HDL CHOLESTEROL (test code = 2220) 48 MG/DL CALC LDL CHOL (test code = 2237) 192 MG/DL RISK RATIO LDL/HDL (test code = 4.00 RATIO 2238) LIPID [id number] 00:00:00 Test Item Value Reference Range Interpretation Comments CHOLESTEROL (test code = 2210) 267 MG/DL TRIGLYCERIDES (test code = 2232) 137 MG/DL HDL CHOLESTEROL (test code = 2220) 48 MG/DL CALC LDL CHOL (test code = 2237) 192 MG/DL RISK RATIO LDL/HDL (test code = 4.00 RATIO 2238) COMPREHENSIVE METABOLIC [id number] 00:00:00 Test Item Value Reference Range Interpretation Comments GLUCOSE (test code = 2217) 155 MG/DL BUN (test code = 2208) 14 MG/DL CREATININE (test code = 2214) 0.52 MG/DL eGFR AMER. (test code 122 ML/MIN/1.73 = 17263) eGFR NON- AMER. (test 105 ML/MIN/1.73 code = 23629) CALC BUN/CREAT (test code = 27 RATIO [...] code = 2219) 27 U/L COMPREHENSIVE METABOLIC [id number] 00:00:00 Test Item Value Reference Range Interpretation Comments GLUCOSE (test code = 2217) 155 MG/DL BUN (test code = 2208) 14 MG/DL CREATININE (test code = 2214) 0.52 MG/DL eGFR AMER. (test code 122 ML/MIN/1.73 = 88413) eGFR NON- AMER. (test 105 ML/MIN/1.73 code = 29766) CALC BUN/CREAT (test code = 27 RATIO [...] THYROX. BIND. CAPAC. (test code 1.0 = 58007) T4 (THYROXINE) (test code = 4.7 UG/DL 2819) CORRECTED T4 (FTI) (test code = 4.7 UG/DL 2820) TSH, THIRD GENERATION (test code 0.201 UIU/ML = 2821) THYROID II PROFILE (T3U, T4, T7, TSH)2019 00:00:00 Test Item Value Reference Range Interpretation Comments T-UPTAKE (test code = 7) 33.1 % THYROX. BIND. CAPAC. (test code 1.0 = 09413) T4 (THYROXINE) (test code = 4.7 UG/DL 2819) CORRECTED T4 (FTI) (test code = 4.7 UG/DL 2820) TSH, THIRD GENERATION (test code 0.201 UIU/ML = 2821) HEMOGLOBIN [id number] 00:00:00 Test Item Value Reference Range Interpretation Comments HEMOGLOBIN A1c (test code = 22373) 6.7 % HEMOGLOBIN [id number] 00:00:00 Test Item Value Reference Range Interpretation Comments HEMOGLOBIN A1c (test code = 35062) 6.7 % HEMOGLOBIN [id number] 00:00:00 Test Item Value Reference Range Interpretation Comments HEMOGLOBIN A1c (test code = 84622) 6.7 % LIPID [id number] 00:00:00 Test Item Value Reference Range Interpretation Comments CHOLESTEROL (test code = 2210) 267 MG/DL TRIGLYCERIDES (test code = 2232) 137 MG/DL HDL CHOLESTEROL (test code = 2220) 48 MG/DL CALC LDL CHOL (test code = 2237) 192 MG/DL RISK RATIO LDL/HDL (test code = 4.00 RATIO 2238) LIPID [id number] 00:00:00 Test Item Value Reference Range Interpretation Comments CHOLESTEROL (test code = 2210) 267 MG/DL TRIGLYCERIDES (test code = 2232) 137 MG/DL HDL CHOLESTEROL (test code = 2220) 48 MG/DL CALC LDL CHOL (test code = 2237) 192 MG/DL RISK RATIO LDL/HDL (test code = 4.00 RATIO 2238) COMPREHENSIVE METABOLIC [id number] 00:00:00 Test Item Value Reference Range Interpretation Comments GLUCOSE (test code = 2217) 155 MG/DL BUN (test code = 2208) 14 MG/DL CREATININE (test code = 2214) 0.52 MG/DL eGFR AMER. (test code 122 ML/MIN/1.73 = 99065) eGFR NON- AMER. (test 105 ML/MIN/1.73 code = 92231) CALC BUN/CREAT (test code = 27 RATIO [...] code = 2219) 27 U/L COMPREHENSIVE METABOLIC [id number] 00:00:00 Test Item Value Reference Range Interpretation Comments GLUCOSE (test code = 2217) 155 MG/DL BUN (test code = 2208) 14 MG/DL CREATININE (test code = 2214) 0.52 MG/DL eGFR AMER. (test code 122 ML/MIN/1.73 = 18120) eGFR NON- AMER. (test 105 ML/MIN/1.73 code = 51871) CALC BUN/CREAT (test code = 27 RATIO [...] THYROX. BIND. CAPAC. (test code 1.0 = 67808) T4 (THYROXINE) (test code = 4.7 UG/DL 2819) CORRECTED T4 (FTI) (test code = 4.7 UG/DL 2820) TSH, THIRD GENERATION (test code 0.201 UIU/ML = 2821) THYROID II PROFILE (T3U, T4, T7, TSH)2019 00:00:00 Test Item Value Reference Range Interpretation Comments T-UPTAKE (test code = 7) 33.1 % THYROX. BIND. CAPAC. (test code 1.0 = 51079) T4 (THYROXINE) (test code = 4.7 UG/DL 2819) CORRECTED T4 (FTI) (test code = 4.7 UG/DL 2820) TSH, THIRD GENERATION (test code 0.201 UIU/ML = 2821) HEMOGLOBIN [id number] 00:00:00 Test Item Value Reference Range Interpretation Comments HEMOGLOBIN A1c (test code = 66161) 6.7 % HEMOGLOBIN [id number] 00:00:00 Test Item Value Reference Range Interpretation Comments HEMOGLOBIN A1c (test code = 08069) 6.7 % LIPID [id number] 00:00:00 Test Item Value Reference Range Interpretation Comments CHOLESTEROL (test code = 2210) 267 MG/DL TRIGLYCERIDES (test code = 2232) 137 MG/DL HDL CHOLESTEROL (test code = 2220) 48 MG/DL CALC LDL CHOL (test code = 2237) 192 MG/DL RISK RATIO LDL/HDL (test code = 4.00 RATIO 2238) COMPREHENSIVE METABOLIC [id number] 00:00:00 Test Item Value Reference Range Interpretation Comments GLUCOSE (test code = 2217) 155 MG/DL BUN (test code = 2208) 14 MG/DL CREATININE (test code = 2214) 0.52 MG/DL eGFR AMER. (test code 122 ML/MIN/1.73 = 69755) eGFR NON- AMER. (test 105 ML/MIN/1.73 code = 28428) CALC BUN/CREAT (test code = 27 RATIO [...] THYROX. BIND. CAPAC. (test code 1.0 = 85458) T4 (THYROXINE) (test code = 4.7 UG/DL 2819) CORRECTED T4 (FTI) (test code = 4.7 UG/DL 2820) TSH, THIRD GENERATION (test code 0.201 UIU/ML = 2821) HEMOGLOBIN [id number] 00:00:00 Test Item Value Reference Range Interpretation Comments HEMOGLOBIN A1c (test code = 09478) 6.7 % HEMOGLOBIN [id number] 00:00:00 Test Item Value Reference Range Interpretation Comments HEMOGLOBIN A1c (test code = 97817) 6.7 % HEMOGLOBIN [id number] 00:00:00 Test Item Value Reference Range Interpretation Comments HEMOGLOBIN A1c (test code = 15979) 6.7 % LIPID [id number] 00:00:00 Test Item Value Reference Range Interpretation Comments CHOLESTEROL (test code = 2210) 267 MG/DL TRIGLYCERIDES (test code = 2232) 137 MG/DL HDL CHOLESTEROL (test code = 2220) 48 MG/DL CALC LDL CHOL (test code = 2237) 192 MG/DL RISK RATIO LDL/HDL (test code = 4.00 RATIO 2238) LIPID [id number] 00:00:00 Test Item Value Reference Range Interpretation Comments CHOLESTEROL (test code = 2210) 267 MG/DL TRIGLYCERIDES (test code = 2232) 137 MG/DL HDL CHOLESTEROL (test code = 2220) 48 MG/DL CALC LDL CHOL (test code = 2237) 192 MG/DL RISK RATIO LDL/HDL (test code = 4.00 RATIO 2238) COMPREHENSIVE METABOLIC [id number] 00:00:00 Test Item Value Reference Range Interpretation Comments GLUCOSE (test code = 2217) 155 MG/DL BUN (test code = 2208) 14 MG/DL CREATININE (test code = 2214) 0.52 MG/DL eGFR AMER. (test code 122 ML/MIN/1.73 = 48759) eGFR NON- AMER. (test 105 ML/MIN/1.73 code = 12797) CALC BUN/CREAT (test code = 27 RATIO [...] code = 2219) 27 U/L COMPREHENSIVE METABOLIC [id number] 00:00:00 Test Item Value Reference Range Interpretation Comments GLUCOSE (test code = 2217) 155 MG/DL BUN (test code = 2208) 14 MG/DL CREATININE (test code = 2214) 0.52 MG/DL eGFR AMER. (test code 122 ML/MIN/1.73 = 42041) eGFR NON- AMER. (test 105 ML/MIN/1.73 code = 03567) CALC BUN/CREAT (test code = 27 RATIO [...] THYROX. BIND. CAPAC. (test code 1.0 = 48372) T4 (THYROXINE) (test code = 4.7 UG/DL 2819) CORRECTED T4 (FTI) (test code = 4.7 UG/DL 2820) TSH, THIRD GENERATION (test code 0.201 UIU/ML = 2821) THYROID II PROFILE (T3U, T4, T7, TSH)2019 00:00:00 Test Item Value Reference Range Interpretation Comments T-UPTAKE (test code = 2817) 33.1 % THYROX. BIND. CAPAC. (test code 1.0 = 18752) T4 (THYROXINE) (test code = 4.7 UG/DL 2819) CORRECTED T4 (FTI) (test code = 4.7 UG/DL 2820) TSH, THIRD GENERATION (test code 0.201 UIU/ML = 2821) SARS-CoV-2 (COVID-19) by RT-PCR (HIGH RISK)2019-09-18 00:00:00 Test Item Value Reference Range Interpretation Comments SARS-CoV-2 INTERPRETATION (test NEGATIVE code = 51601) SOURCE (test code = 27181) NOT SPECIFIED SARS-CoV-2 (COVID-19) by RT-PCR (HIGH RISK)2019-09-18 00:00:00 Test Item Value Reference Range Interpretation Comments SARS-CoV-2 INTERPRETATION (test NEGATIVE code = 78487) SOURCE (test code = 38610) NOT SPECIFIED SARS-CoV-2 (COVID-19) by RT-PCR (HIGH RISK)2019-09-18 00:00:00 Test Item Value Reference Range Interpretation Comments SARS-CoV-2 INTERPRETATION (test NEGATIVE code = 34233) SOURCE (test code = 98019) NOT SPECIFIED SARS-CoV-2 (COVID-19) by RT-PCR (HIGH RISK)2019-09-18 00:00:00 Test Item Value Reference Range Interpretation Comments SARS-CoV-2 INTERPRETATION (test NEGATIVE code = 07234) SOURCE (test code = 03951) NOT SPECIFIED SARS-CoV-2 (COVID-19) by RT-PCR (HIGH RISK)2019-09-18 00:00:00 Test Item Value Reference Range Interpretation Comments SARS-CoV-2 INTERPRETATION (test NEGATIVE code = 80013) SOURCE (test code = 45365) NOT SPECIFIED SARS-CoV-2 (COVID-19) by RT-PCR (HIGH RISK)2019-09-18 00:00:00 Test Item Value Reference Range Interpretation Comments SARS-CoV-2 INTERPRETATION (test NEGATIVE code = 91508) SOURCE (test code = 45379) NOT SPECIFIED SARS-CoV-2 (COVID-19) by RT-PCR (HIGH RISK)2019-09-18 00:00:00 Test Item Value Reference Range Interpretation Comments SARS-CoV-2 INTERPRETATION (test NEGATIVE code = 71940) SOURCE (test code = 86122) NOT SPECIFIED [id number] 00:00:00 Test Item Value Reference Range Interpretation Comments TSH, THIRD GENERATION (test code 2.490 UIU/ML = 2821) [id number] 00:00:00 Test Item Value Reference Range Interpretation Comments TSH, THIRD GENERATION (test code 2.490 UIU/ML = 2821) [id number] 00:00:00 Test Item Value Reference Range Interpretation Comments TSH, THIRD GENERATION (test code 2.490 UIU/ML = 2821) HEMOGLOBIN [id number] 00:00:00 Test Item Value Reference Range Interpretation Comments HEMOGLOBIN A1c (test code = 06564) 6.4 % HEMOGLOBIN [id number] 00:00:00 Test Item Value Reference Range Interpretation Comments HEMOGLOBIN A1c (test code = 06307) 6.4 % HEMOGLOBIN [id number] 00:00:00 Test Item Value Reference Range Interpretation Comments HEMOGLOBIN A1c (test code = 59975) 6.4 % COMPREHENSIVE METABOLIC [id number] 00:00:00 Test Item Value Reference Range Interpretation Comments GLUCOSE (test code = 2217) 206 MG/DL BUN (test code = 2208) 23 MG/DL CREATININE (test code = 2214) 0.67 MG/DL eGFR AMER. (test code 112 ML/MIN/1.73 = 82850) eGFR NON- AMER. (test 97 ML/MIN/1.73 code = 27793) CALC BUN/CREAT (test code = 34 RATIO [...] code = 2219) 25 U/L COMPREHENSIVE METABOLIC [id number] 00:00:00 Test Item Value Reference Range Interpretation Comments GLUCOSE (test code = 2217) 206 MG/DL BUN (test code = 2208) 23 MG/DL CREATININE (test code = 2214) 0.67 MG/DL eGFR AMER. (test code 112 ML/MIN/1.73 = 98942) eGFR NON- AMER. (test 97 ML/MIN/1.73 code = 83403) CALC BUN/CREAT (test code = 34 RATIO [...] ALT (test code = 2219) 25 U/L [id number] 00:00:00 Test Item Value Reference Range Interpretation Comments TSH, THIRD GENERATION (test code 2.490 UIU/ML = 2821) [id number] 00:00:00 Test Item Value Reference Range Interpretation Comments TSH, THIRD GENERATION (test code 2.490 UIU/ML = 2821) [id number] 00:00:00 Test Item Value Reference Range Interpretation Comments TSH, THIRD GENERATION (test code 2.490 UIU/ML = 2821) HEMOGLOBIN [id number] 00:00:00 Test Item Value Reference Range Interpretation Comments HEMOGLOBIN A1c (test code = 51830) 6.4 % HEMOGLOBIN [id number] 00:00:00 Test Item Value Reference Range Interpretation Comments HEMOGLOBIN A1c (test code = 78620) 6.4 % HEMOGLOBIN [id number] 00:00:00 Test Item Value Reference Range Interpretation Comments HEMOGLOBIN A1c (test code = 14309) 6.4 % COMPREHENSIVE METABOLIC [id number] 00:00:00 Test Item Value Reference Range Interpretation Comments GLUCOSE (test code = 2217) 206 MG/DL BUN (test code = 2208) 23 MG/DL CREATININE (test code = 2214) 0.67 MG/DL eGFR AMER. (test code 112 ML/MIN/1.73 = 67550) eGFR NON- AMER. (test 97 ML/MIN/1.73 code = 42034) CALC BUN/CREAT (test code = 34 RATIO [...] code = 2219) 25 U/L COMPREHENSIVE METABOLIC [id number] 00:00:00 Test Item Value Reference Range Interpretation Comments GLUCOSE (test code = 2217) 206 MG/DL BUN (test code = 2208) 23 MG/DL CREATININE (test code = 2214) 0.67 MG/DL eGFR AMER. (test code 112 ML/MIN/1.73 = 28687) eGFR NON- AMER. (test 97 ML/MIN/1.73 code = 86557) CALC BUN/CREAT (test code = 34 RATIO [...] ALT (test code = 2219) 25 U/L [id number] 00:00:00 Test Item Value Reference Range Interpretation Comments TSH, THIRD GENERATION (test code 2.490 UIU/ML = 2821) [id number] 00:00:00 Test Item Value Reference Range Interpretation Comments TSH, THIRD GENERATION (test code 2.490 UIU/ML = 2821) HEMOGLOBIN [id number] 00:00:00 Test Item Value Reference Range Interpretation Comments HEMOGLOBIN A1c (test code = 12265) 6.4 % HEMOGLOBIN [id number] 00:00:00 Test Item Value Reference Range Interpretation Comments HEMOGLOBIN A1c (test code = 88312) 6.4 % COMPREHENSIVE METABOLIC [id number] 00:00:00 Test Item Value Reference Range Interpretation Comments GLUCOSE (test code = 2217) 206 MG/DL BUN (test code = 2208) 23 MG/DL CREATININE (test code = 2214) 0.67 MG/DL eGFR AMER. (test code 112 ML/MIN/1.73 = 92411) eGFR NON- AMER. (test 97 ML/MIN/1.73 code = 55766) CALC BUN/CREAT (test code = 34 RATIO [...] ALT (test code = 2219) 25 U/L [id number] 00:00:00 Test Item Value Reference Range Interpretation Comments TSH, THIRD GENERATION (test code 2.490 UIU/ML = 2821) [id number] 00:00:00 Test Item Value Reference Range Interpretation Comments TSH, THIRD GENERATION (test code 2.490 UIU/ML = 2821) [id number] 00:00:00 Test Item Value Reference Range Interpretation Comments TSH, THIRD GENERATION (test code 2.490 UIU/ML = 2821) HEMOGLOBIN [id number] 00:00:00 Test Item Value Reference Range Interpretation Comments HEMOGLOBIN A1c (test code = 66578) 6.4 % HEMOGLOBIN [id number] 00:00:00 Test Item Value Reference Range Interpretation Comments HEMOGLOBIN A1c (test code = 38476) 6.4 % HEMOGLOBIN [id number] 00:00:00 Test Item Value Reference Range Interpretation Comments HEMOGLOBIN A1c (test code = 80647) 6.4 % COMPREHENSIVE METABOLIC [id number] 00:00:00 Test Item Value Reference Range Interpretation Comments GLUCOSE (test code = 2217) 206 MG/DL BUN (test code = 2208) 23 MG/DL CREATININE (test code = 2214) 0.67 MG/DL eGFR AMER. (test code 112 ML/MIN/1.73 = 40413) eGFR NON- AMER. (test 97 ML/MIN/1.73 code = 88480) CALC BUN/CREAT (test code = 34 RATIO [...] code = 2219) 25 U/L COMPREHENSIVE METABOLIC [id number] 00:00:00 Test Item Value Reference Range Interpretation Comments GLUCOSE (test code = 2217) 206 MG/DL BUN (test code = 2208) 23 MG/DL CREATININE (test code = 2214) 0.67 MG/DL eGFR AMER. (test code 112 ML/MIN/1.73 = 53916) eGFR NON- AMER. (test 97 ML/MIN/1.73 code = 42766) CALC BUN/CREAT (test code = 34 RATIO [...] = 2219) 25 U/L VAGINAL PATHOGENS DNA [id number] 00:00:00 Test Item Value Reference Range Interpretation Comments MARK SPECIES (test code = ) NEGATIVE G. VAGINALIS (test code = 98932) NEGATIVE T. VAGINALIS (test code = 29276) NEGATIVE VAGINAL PATHOGENS DNA [id number] 00:00:00 Test Item Value Reference Range Interpretation Comments MARK SPECIES (test code = ) NEGATIVE G. VAGINALIS (test code = 39194) NEGATIVE T. VAGINALIS (test code = 23097) NEGATIVE VAGINAL PATHOGENS DNA [id number] 00:00:00 Test Item Value Reference Range Interpretation Comments MARK SPECIES (test code = 91429) NEGATIVE G. VAGINALIS (test code = 75820) NEGATIVE T. VAGINALIS (test code = 80920) NEGATIVE VAGINAL PATHOGENS DNA [id number] 00:00:00 Test Item Value Reference Range Interpretation Comments MARK SPECIES (test code = 10225) NEGATIVE G. VAGINALIS (test code = 61624) NEGATIVE T. VAGINALIS (test code = 86404) NEGATIVE VAGINAL PATHOGENS DNA [id number] 00:00:00 Test Item Value Reference Range Interpretation Comments MARK SPECIES (test code = 83165) NEGATIVE G. VAGINALIS (test code = 78339) NEGATIVE T. VAGINALIS (test code = 30562) NEGATIVE VAGINAL PATHOGENS DNA [id number] 00:00:00 Test Item Value Reference Range Interpretation Comments MARK SPECIES (test code = 57444) NEGATIVE G. VAGINALIS (test code = 17094) NEGATIVE T. VAGINALIS (test code = 74724) NEGATIVE VAGINAL PATHOGENS DNA [id number] 00:00:00 Test Item Value Reference Range Interpretation Comments MARK SPECIES (test code = 85570) NEGATIVE G. VAGINALIS (test code = 34237) NEGATIVE T. VAGINALIS (test code = 53160) NEGATIVE HEMOGLOBIN A1c [ADDED]2018-12-01 00:00:00 Test Item Value Reference Range Interpretation Comments HEMOGLOBIN A1c (test code = 41562) 6.7 % HEMOGLOBIN A1c [ADDED]2018-12-01 00:00:00 Test Item Value Reference Range Interpretation Comments HEMOGLOBIN A1c (test code = 16798) 6.7 % HEMOGLOBIN A1c [ADDED]2018-12-01 00:00:00 Test Item Value Reference Range Interpretation Comments HEMOGLOBIN A1c (test code = 48286) 6.7 % COMPREHENSIVE METABOLIC PANEL [ADDED]2018-12-01 00:00:00 Test Item Value Reference Range Interpretation Comments GLUCOSE (test code = 2217) 136 MG/DL BUN (test code = 2208) 15 MG/DL CREATININE (test code = 2214) 0.64 MG/DL eGFR AMER. (test code 115 ML/MIN/1.73 = 56858) eGFR NON- AMER. (test 99 ML/MIN/1.73 code = 13592) CALC BUN/CREAT (test code = 23 RATIO [...] eGFR AMER. (test code 115 ML/MIN/1.73 = 30677) eGFR NON- AMER. (test 99 ML/MIN/1.73 code = 50200) CALC BUN/CREAT (test code = 23 RATIO [...] Interpretation Comments HEMOGLOBIN A1c (test code = 28352) 6.7 % HEMOGLOBIN A1c [ADDED]2018-12-01 00:00:00 Test Item Value Reference Range Interpretation Comments HEMOGLOBIN A1c (test code = 97729) 6.7 % HEMOGLOBIN A1c [ADDED]2018-12-01 00:00:00 Test Item Value Reference Range Interpretation Comments HEMOGLOBIN A1c (test code = 59781) 6.7 % COMPREHENSIVE METABOLIC PANEL [ADDED]2018-12-01 00:00:00 Test Item Value Reference Range Interpretation Comments GLUCOSE (test code = 2217) 136 MG/DL BUN (test code = 2208) 15 MG/DL CREATININE (test code = 2214) 0.64 MG/DL eGFR AMER. (test code 115 ML/MIN/1.73 = 05209) eGFR NON- AMER. (test 99 ML/MIN/1.73 code = 44288) CALC BUN/CREAT (test code = 23 RATIO [...] eGFR AMER. (test code 115 ML/MIN/1.73 = 75897) eGFR NON- AMER. (test 99 ML/MIN/1.73 code = 44136) CALC BUN/CREAT (test code = 23 RATIO [...] Interpretation Comments HEMOGLOBIN A1c (test code = 05167) 6.7 % HEMOGLOBIN A1c [ADDED]2018-12-01 00:00:00 Test Item Value Reference Range Interpretation Comments HEMOGLOBIN A1c (test code = 18655) 6.7 % COMPREHENSIVE METABOLIC PANEL [ADDED]2018-12-01 00:00:00 Test Item Value Reference Range Interpretation Comments GLUCOSE (test code = 2217) 136 MG/DL BUN (test code = 2208) 15 MG/DL CREATININE (test code = 2214) 0.64 MG/DL eGFR AMER. (test code 115 ML/MIN/1.73 = 07295) eGFR NON- AMER. (test 99 ML/MIN/1.73 code = 67745) CALC BUN/CREAT (test code = 23 RATIO [...] Interpretation Comments HEMOGLOBIN A1c (test code = 99802) 6.7 % HEMOGLOBIN A1c [ADDED]2018-12-01 00:00:00 Test Item Value Reference Range Interpretation Comments HEMOGLOBIN A1c (test code = 86825) 6.7 % HEMOGLOBIN A1c [ADDED]2018-12-01 00:00:00 Test Item Value Reference Range Interpretation Comments HEMOGLOBIN A1c (test code = 23414) 6.7 % COMPREHENSIVE METABOLIC PANEL [ADDED]2018-12-01 00:00:00 Test Item Value Reference Range Interpretation Comments GLUCOSE (test code = 2217) 136 MG/DL BUN (test code = 2208) 15 MG/DL CREATININE (test code = 2214) 0.64 MG/DL eGFR AMER. (test code 115 ML/MIN/1.73 = 23836) eGFR NON- AMER. (test 99 ML/MIN/1.73 code = 70763) CALC BUN/CREAT (test code = 23 RATIO [...] eGFR AMER. (test code 115 ML/MIN/1.73 = 98090) eGFR NON- AMER. (test 99 ML/MIN/1.73 code = 04803) CALC BUN/CREAT (test code = 23 RATIO [...] code 1.280 UIU/ML = 2821) CBC W/AUTO [id number] 00:00:00 Test Item Value Reference Range Interpretation [...] code = 1015) 346 K/UL CBC W/AUTO [id number] 00:00:00 Test Item Value Reference Range Interpretation [...] code = 1015) 346 K/UL CBC W/AUTO [id number] 00:00:00 Test Item Value Reference Range Interpretation [...] (test code = 1015) 346 K/UL HEMOGLOBIN [id number] 00:00:00 Test Item Value Reference Range Interpretation Comments HEMOGLOBIN A1c (test code = 72209) 5.9 % HEMOGLOBIN [id number] 00:00:00 Test Item Value Reference Range Interpretation Comments HEMOGLOBIN A1c (test code = 74582) 5.9 % HEMOGLOBIN [id number] 00:00:00 Test Item Value Reference Range Interpretation Comments HEMOGLOBIN A1c (test code = 52104) 5.9 % LIPID [id number] 00:00:00 Test Item Value Reference Range Interpretation Comments CHOLESTEROL (test code = 2210) 318 MG/DL TRIGLYCERIDES (test code = 2232) 263 MG/DL HDL CHOLESTEROL (test code = 2220) 51 MG/DL CALC LDL CHOL (test code = 2237) 214 MG/DL RISK RATIO LDL/HDL (test code = 4.20 RATIO 2238) LIPID [id number] 00:00:00 Test Item Value Reference Range Interpretation Comments CHOLESTEROL (test code = 2210) 318 MG/DL TRIGLYCERIDES (test code = 2232) 263 MG/DL HDL CHOLESTEROL (test code = 2220) 51 MG/DL CALC LDL CHOL (test code = 2237) 214 MG/DL RISK RATIO LDL/HDL (test code = 4.20 RATIO 2238) COMPREHENSIVE METABOLIC [id number] 00:00:00 Test Item Value Reference Range Interpretation Comments GLUCOSE (test code = 2217) 113 MG/DL BUN (test code = 2208) 18 MG/DL CREATININE (test code = 2214) 0.70 MG/DL eGFR AMER. (test code 111 ML/MIN/1.73 = 38592) eGFR NON- AMER. (test 96 ML/MIN/1.73 code = 99730) CALC BUN/CREAT (test code = 26 RATIO [...] code = 2219) 31 U/L COMPREHENSIVE METABOLIC [id number] 00:00:00 Test Item Value Reference Range Interpretation Comments GLUCOSE (test code = 2217) 113 MG/DL BUN (test code = 2208) 18 MG/DL CREATININE (test code = 2214) 0.70 MG/DL eGFR AMER. (test code 111 ML/MIN/1.73 = 98998) eGFR NON- AMER. (test 96 ML/MIN/1.73 code = 31609) CALC BUN/CREAT (test code = 26 RATIO [...] ALT (test code = 2219) 31 U/L [id number] 00:00:00 Test Item Value Reference Range Interpretation Comments TSH, THIRD GENERATION (test code 2.520 UIU/ML = 2821) [id number] 00:00:00 Test Item Value Reference Range Interpretation Comments TSH, THIRD GENERATION (test code 2.520 UIU/ML = 2821) [id number] 00:00:00 Test Item Value Reference Range Interpretation Comments TSH, THIRD GENERATION (test code 2.520 UIU/ML = 2821) CBC W/AUTO [id number] 00:00:00 Test Item Value Reference Range Interpretation [...] code = 1015) 346 K/UL CBC W/AUTO [id number] 00:00:00 Test Item Value Reference Range Interpretation [...] code = 1015) 346 K/UL CBC W/AUTO [id number] 00:00:00 Test Item Value Reference Range Interpretation [...] (test code = 1015) 346 K/UL HEMOGLOBIN [id number] 00:00:00 Test Item Value Reference Range Interpretation Comments HEMOGLOBIN A1c (test code = 62071) 5.9 % HEMOGLOBIN [id number] 00:00:00 Test Item Value Reference Range Interpretation Comments HEMOGLOBIN A1c (test code = 18876) 5.9 % HEMOGLOBIN [id number] 00:00:00 Test Item Value Reference Range Interpretation Comments HEMOGLOBIN A1c (test code = 64342) 5.9 % LIPID [id number] 00:00:00 Test Item Value Reference Range Interpretation Comments CHOLESTEROL (test code = 2210) 318 MG/DL TRIGLYCERIDES (test code = 2232) 263 MG/DL HDL CHOLESTEROL (test code = 2220) 51 MG/DL CALC LDL CHOL (test code = 2237) 214 MG/DL RISK RATIO LDL/HDL (test code = 4.20 RATIO 2238) LIPID [id number] 00:00:00 Test Item Value Reference Range Interpretation Comments CHOLESTEROL (test code = 2210) 318 MG/DL TRIGLYCERIDES (test code = 2232) 263 MG/DL HDL CHOLESTEROL (test code = 2220) 51 MG/DL CALC LDL CHOL (test code = 2237) 214 MG/DL RISK RATIO LDL/HDL (test code = 4.20 RATIO 2238) COMPREHENSIVE METABOLIC [id number] 00:00:00 Test Item Value Reference Range Interpretation Comments GLUCOSE (test code = 2217) 113 MG/DL BUN (test code = 2208) 18 MG/DL CREATININE (test code = 2214) 0.70 MG/DL eGFR AMER. (test code 111 ML/MIN/1.73 = 52116) eGFR NON- AMER. (test 96 ML/MIN/1.73 code = 45022) CALC BUN/CREAT (test code = 26 RATIO [...] code = 2219) 31 U/L COMPREHENSIVE METABOLIC [id number] 00:00:00 Test Item Value Reference Range Interpretation Comments GLUCOSE (test code = 2217) 113 MG/DL BUN (test code = 2208) 18 MG/DL CREATININE (test code = 2214) 0.70 MG/DL eGFR AMER. (test code 111 ML/MIN/1.73 = 07658) eGFR NON- AMER. (test 96 ML/MIN/1.73 code = 08058) CALC BUN/CREAT (test code = 26 RATIO [...] ALT (test code = 2219) 31 U/L [id number] 00:00:00 Test Item Value Reference Range Interpretation Comments TSH, THIRD GENERATION (test code 2.520 UIU/ML = 2821) [id number] 00:00:00 Test Item Value Reference Range Interpretation Comments TSH, THIRD GENERATION (test code 2.520 UIU/ML = 2821) [id number] 00:00:00 Test Item Value Reference Range Interpretation Comments TSH, THIRD GENERATION (test code 2.520 UIU/ML = 2821) CBC W/AUTO [id number] 00:00:00 Test Item Value Reference Range Interpretation [...] code = 1015) 346 K/UL CBC W/AUTO [id number] 00:00:00 Test Item Value Reference Range Interpretation [...] (test code = 1015) 346 K/UL HEMOGLOBIN [id number] 00:00:00 Test Item Value Reference Range Interpretation Comments HEMOGLOBIN A1c (test code = 90897) 5.9 % HEMOGLOBIN [id number] 00:00:00 Test Item Value Reference Range Interpretation Comments HEMOGLOBIN A1c (test code = 38510) 5.9 % LIPID [id number] 00:00:00 Test Item Value Reference Range Interpretation Comments CHOLESTEROL (test code = 2210) 318 MG/DL TRIGLYCERIDES (test code = 2232) 263 MG/DL HDL CHOLESTEROL (test code = 2220) 51 MG/DL CALC LDL CHOL (test code = 2237) 214 MG/DL RISK RATIO LDL/HDL (test code = 4.20 RATIO 2238) COMPREHENSIVE METABOLIC [id number] 00:00:00 Test Item Value Reference Range Interpretation Comments GLUCOSE (test code = 2217) 113 MG/DL BUN (test code = 2208) 18 MG/DL CREATININE (test code = 2214) 0.70 MG/DL eGFR AMER. (test code 111 ML/MIN/1.73 = 03785) eGFR NON- AMER. (test 96 ML/MIN/1.73 code = 89594) CALC BUN/CREAT (test code = 26 RATIO [...] ALT (test code = 2219) 31 U/L [id number] 00:00:00 Test Item Value Reference Range Interpretation Comments TSH, THIRD GENERATION (test code 2.520 UIU/ML = 2821) [id number] 00:00:00 Test Item Value Reference Range Interpretation Comments TSH, THIRD GENERATION (test code 2.520 UIU/ML = 2821) CBC W/AUTO [id number] 00:00:00 Test Item Value Reference Range Interpretation [...] code = 1015) 346 K/UL CBC W/AUTO [id number] 00:00:00 Test Item Value Reference Range Interpretation [...] code = 1015) 346 K/UL CBC W/AUTO [id number] 00:00:00 Test Item Value Reference Range Interpretation [...] (test code = 1015) 346 K/UL HEMOGLOBIN [id number] 00:00:00 Test Item Value Reference Range Interpretation Comments HEMOGLOBIN A1c (test code = 61310) 5.9 % HEMOGLOBIN [id number] 00:00:00 Test Item Value Reference Range Interpretation Comments HEMOGLOBIN A1c (test code = 69865) 5.9 % HEMOGLOBIN [id number] 00:00:00 Test Item Value Reference Range Interpretation Comments HEMOGLOBIN A1c (test code = 16476) 5.9 % LIPID [id number] 00:00:00 Test Item Value Reference Range Interpretation Comments CHOLESTEROL (test code = 2210) 318 MG/DL TRIGLYCERIDES (test code = 2232) 263 MG/DL HDL CHOLESTEROL (test code = 2220) 51 MG/DL CALC LDL CHOL (test code = 2237) 214 MG/DL RISK RATIO LDL/HDL (test code = 4.20 RATIO 2238) LIPID [id number] 00:00:00 Test Item Value Reference Range Interpretation Comments CHOLESTEROL (test code = 2210) 318 MG/DL TRIGLYCERIDES (test code = 2232) 263 MG/DL HDL CHOLESTEROL (test code = 2220) 51 MG/DL CALC LDL CHOL (test code = 2237) 214 MG/DL RISK RATIO LDL/HDL (test code = 4.20 RATIO 2238) COMPREHENSIVE METABOLIC [id number] 00:00:00 Test Item Value Reference Range Interpretation Comments GLUCOSE (test code = 2217) 113 MG/DL BUN (test code = 2208) 18 MG/DL CREATININE (test code = 2214) 0.70 MG/DL eGFR AMER. (test code 111 ML/MIN/1.73 = 01513) eGFR NON- AMER. (test 96 ML/MIN/1.73 code = 27998) CALC BUN/CREAT (test code = 26 RATIO [...] code = 2219) 31 U/L COMPREHENSIVE METABOLIC [id number] 00:00:00 Test Item Value Reference Range Interpretation Comments GLUCOSE (test code = 2217) 113 MG/DL BUN (test code = 2208) 18 MG/DL CREATININE (test code = 2214) 0.70 MG/DL eGFR AMER. (test code 111 ML/MIN/1.73 = 70195) eGFR NON- AMER. (test 96 ML/MIN/1.73 code = 74093) CALC BUN/CREAT (test code = 26 RATIO [...] ALT (test code = 2219) 31 U/L [id number] 00:00:00 Test Item Value Reference Range Interpretation Comments TSH, THIRD GENERATION (test code 2.520 UIU/ML = 2821) [id number] 00:00:00 Test Item Value Reference Range Interpretation Comments TSH, THIRD GENERATION (test code 2.520 UIU/ML = 2821) [id number] 00:00:00 Test Item Value Reference Range Interpretation Comments TSH, THIRD GENERATION (test code 2.520 UIU/ML = 2821) CULTURE, [id number] 00:00:00 Test Item Value Reference Range Interpretation Comments CULTURE, URINE (test SPECIMEN NUMBER: code = 96026) [id number] CULTURE, [id number] 00:00:00 Test Item Value Reference Range Interpretation Comments CULTURE, URINE (test SPECIMEN NUMBER: code = 95330) [id number] CULTURE, [id number] 00:00:00 Test Item Value Reference Range Interpretation Comments CULTURE, URINE (test SPECIMEN NUMBER: code = 31849) [id number] CULTURE, [id number] 00:00:00 Test Item Value Reference Range Interpretation Comments CULTURE, URINE (test SPECIMEN NUMBER: code = 98313) [id number] CULTURE, [id number] 00:00:00 Test Item Value Reference Range Interpretation Comments CULTURE, URINE (test SPECIMEN NUMBER: code = 02372) [id number] CULTURE, [id number] 00:00:00 Test Item Value Reference Range Interpretation Comments CULTURE, URINE (test SPECIMEN NUMBER: code = 16571) [id number] CULTURE, [id number] 00:00:00 Test Item Value Reference Range Interpretation Comments CULTURE, URINE (test SPECIMEN NUMBER: code = 08140) [id number] CULTURE, [id number] 00:00:00 Test Item Value Reference Range Interpretation Comments CULTURE, URINE (test SPECIMEN NUMBER: code = 98021) [id number] CULTURE, [id number] 00:00:00 Test Item Value Reference Range Interpretation Comments CULTURE, URINE (test SPECIMEN NUMBER: code = 31793) [id number] CULTURE, [id number] 00:00:00 Test Item Value Reference Range Interpretation Comments CULTURE, URINE (test SPECIMEN NUMBER: code = 11492) [id number] CULTURE, [id number] 00:00:00 Test Item Value Reference Range Interpretation Comments CULTURE, URINE (test SPECIMEN NUMBER: code = 51132) [id number] CULTURE, [id number] 00:00:00 Test Item Value Reference Range Interpretation Comments CULTURE, URINE (test SPECIMEN NUMBER: code = 36638) [id number] CULTURE, [id number] 00:00:00 Test Item Value Reference Range Interpretation Comments CULTURE, URINE (test SPECIMEN NUMBER: code = 71735) [id number] CULTURE, [id number] 00:00:00 Test Item Value Reference Range Interpretation Comments CULTURE, URINE (test SPECIMEN NUMBER: code = 67582) [id number] BASIC METABOLIC [id number] 00:00:00 Test Item Value Reference Range Interpretation Comments GLUCOSE (test code = 2217) 135 MG/DL BUN (test code = 2208) 25 MG/DL CREATININE (test code = 2214) 0.76 MG/DL eGFR AMER. (test code 101 ML/MIN/1.73 = 24201) eGFR NON- AMER. (test 87 ML/MIN/1.73 code = 17051) SODIUM (test code = 2231) 139 MEQ/L POTASSIUM (test code = 2228) 4.7 MEQ/L CHLORIDE (test code = 2215) 99 MEQ/L CARBON DIOXIDE (test code = 26 MEQ/L 2206) CALCIUM (test code = 2209) 9.4 MG/DL BASIC METABOLIC [id number] 00:00:00 Test Item Value Reference Range Interpretation Comments GLUCOSE (test code = 2217) 135 MG/DL BUN (test code = 2208) 25 MG/DL CREATININE (test code = 2214) 0.76 MG/DL eGFR AMER. (test code 101 ML/MIN/1.73 = 27589) eGFR NON- AMER. (test 87 ML/MIN/1.73 code = 39000) SODIUM (test code = 2231) 139 MEQ/L POTASSIUM (test code = 2228) 4.7 MEQ/L CHLORIDE (test code = 2215) 99 MEQ/L CARBON DIOXIDE (test code = 26 MEQ/L 2206) CALCIUM (test code = 2209) 9.4 MG/DL LIPID [id number] 00:00:00 Test Item Value Reference Range Interpretation Comments CHOLESTEROL (test code = 2210) 262 MG/DL TRIGLYCERIDES (test code = 2232) 300 MG/DL HDL CHOLESTEROL (test code = 2220) 36 MG/DL CALC LDL CHOL (test code = 2237) 166 MG/DL RISK RATIO LDL/HDL (test code = 4.61 RATIO 2238) LIPID [id number] 00:00:00 Test Item Value Reference Range Interpretation Comments CHOLESTEROL (test code = 2210) 262 MG/DL TRIGLYCERIDES (test code = 2232) 300 MG/DL HDL CHOLESTEROL (test code = 2220) 36 MG/DL CALC LDL CHOL (test code = 2237) 166 MG/DL RISK RATIO LDL/HDL (test code = 4.61 RATIO 2238) HEMOGLOBIN [id number] 00:00:00 Test Item Value Reference Range Interpretation Comments HEMOGLOBIN A1c (test code = 48444) 6.2 % HEMOGLOBIN [id number] 00:00:00 Test Item Value Reference Range Interpretation Comments HEMOGLOBIN A1c (test code = 13462) 6.2 % HEMOGLOBIN [id number] 00:00:00 Test Item Value Reference Range Interpretation Comments HEMOGLOBIN A1c (test code = 33095) 6.2 % [id number] 00:00:00 Test Item Value Reference Range Interpretation Comments TSH, THIRD GENERATION (test code 0.988 UIU/ML = 2821) [id number] 00:00:00 Test Item Value Reference Range Interpretation Comments TSH, THIRD GENERATION (test code 0.988 UIU/ML = 2821) [id number] 00:00:00 Test Item Value Reference Range Interpretation Comments TSH, THIRD GENERATION (test code 0.988 UIU/ML = 2821) BASIC METABOLIC [id number] 00:00:00 Test Item Value Reference Range Interpretation Comments GLUCOSE (test code = 2217) 135 MG/DL BUN (test code = 2208) 25 MG/DL CREATININE (test code = 2214) 0.76 MG/DL eGFR AMER. (test code 101 ML/MIN/1.73 = 74729) eGFR NON- AMER. (test 87 ML/MIN/1.73 code = 55762) SODIUM (test code = 2231) 139 MEQ/L POTASSIUM (test code = 2228) 4.7 MEQ/L CHLORIDE (test code = 2215) 99 MEQ/L CARBON DIOXIDE (test code = 26 MEQ/L 2206) CALCIUM (test code = 2209) 9.4 MG/DL BASIC METABOLIC [id number] 00:00:00 Test Item Value Reference Range Interpretation Comments GLUCOSE (test code = 2217) 135 MG/DL BUN (test code = 2208) 25 MG/DL CREATININE (test code = 2214) 0.76 MG/DL eGFR AMER. (test code 101 ML/MIN/1.73 = 86380) eGFR NON- AMER. (test 87 ML/MIN/1.73 code = 23135) SODIUM (test code = 2231) 139 MEQ/L POTASSIUM (test code = 2228) 4.7 MEQ/L CHLORIDE (test code = 2215) 99 MEQ/L CARBON DIOXIDE (test code = 26 MEQ/L 2206) CALCIUM (test code = 2209) 9.4 MG/DL LIPID [id number] 00:00:00 Test Item Value Reference Range Interpretation Comments CHOLESTEROL (test code = 2210) 262 MG/DL TRIGLYCERIDES (test code = 2232) 300 MG/DL HDL CHOLESTEROL (test code = 2220) 36 MG/DL CALC LDL CHOL (test code = 2237) 166 MG/DL RISK RATIO LDL/HDL (test code = 4.61 RATIO 2238) LIPID [id number] 00:00:00 Test Item Value Reference Range Interpretation Comments CHOLESTEROL (test code = 2210) 262 MG/DL TRIGLYCERIDES (test code = 2232) 300 MG/DL HDL CHOLESTEROL (test code = 2220) 36 MG/DL CALC LDL CHOL (test code = 2237) 166 MG/DL RISK RATIO LDL/HDL (test code = 4.61 RATIO 2238) HEMOGLOBIN [id number] 00:00:00 Test Item Value Reference Range Interpretation Comments HEMOGLOBIN A1c (test code = 53984) 6.2 % HEMOGLOBIN [id number] 00:00:00 Test Item Value Reference Range Interpretation Comments HEMOGLOBIN A1c (test code = 79940) 6.2 % HEMOGLOBIN [id number] 00:00:00 Test Item Value Reference Range Interpretation Comments HEMOGLOBIN A1c (test code = 37943) 6.2 % [id number] 00:00:00 Test Item Value Reference Range Interpretation Comments TSH, THIRD GENERATION (test code 0.988 UIU/ML = 2821) [id number] 00:00:00 Test Item Value Reference Range Interpretation Comments TSH, THIRD GENERATION (test code 0.988 UIU/ML = 2821) [id number] 00:00:00 Test Item Value Reference Range Interpretation Comments TSH, THIRD GENERATION (test code 0.988 UIU/ML = 2821) BASIC METABOLIC [id number] 00:00:00 Test Item Value Reference Range Interpretation Comments GLUCOSE (test code = 2217) 135 MG/DL BUN (test code = 2208) 25 MG/DL CREATININE (test code = 2214) 0.76 MG/DL eGFR AMER. (test code 101 ML/MIN/1.73 = 17892) eGFR NON- AMER. (test 87 ML/MIN/1.73 code = 65299) SODIUM (test code = 2231) 139 MEQ/L POTASSIUM (test code = 2228) 4.7 MEQ/L CHLORIDE (test code = 2215) 99 MEQ/L CARBON DIOXIDE (test code = 26 MEQ/L 2206) CALCIUM (test code = 2209) 9.4 MG/DL LIPID [id number] 00:00:00 Test Item Value Reference Range Interpretation Comments CHOLESTEROL (test code = 2210) 262 MG/DL TRIGLYCERIDES (test code = 2232) 300 MG/DL HDL CHOLESTEROL (test code = 2220) 36 MG/DL CALC LDL CHOL (test code = 2237) 166 MG/DL RISK RATIO LDL/HDL (test code = 4.61 RATIO 2238) HEMOGLOBIN [id number] 00:00:00 Test Item Value Reference Range Interpretation Comments HEMOGLOBIN A1c (test code = 51317) 6.2 % HEMOGLOBIN [id number] 00:00:00 Test Item Value Reference Range Interpretation Comments HEMOGLOBIN A1c (test code = 24665) 6.2 % [id number] 00:00:00 Test Item Value Reference Range Interpretation Comments TSH, THIRD GENERATION (test code 0.988 UIU/ML = 2821) [id number] 00:00:00 Test Item Value Reference Range Interpretation Comments TSH, THIRD GENERATION (test code 0.988 UIU/ML = 2821) BASIC METABOLIC [id number] 00:00:00 Test Item Value Reference Range Interpretation Comments GLUCOSE (test code = 2217) 135 MG/DL BUN (test code = 2208) 25 MG/DL CREATININE (test code = 2214) 0.76 MG/DL eGFR AMER. (test code 101 ML/MIN/1.73 = 17002) eGFR NON- AMER. (test 87 ML/MIN/1.73 code = 53282) SODIUM (test code = 2231) 139 MEQ/L POTASSIUM (test code = 2228) 4.7 MEQ/L CHLORIDE (test code = 2215) 99 MEQ/L CARBON DIOXIDE (test code = 26 MEQ/L 2206) CALCIUM (test code = 2209) 9.4 MG/DL BASIC METABOLIC [id number] 00:00:00 Test Item Value Reference Range Interpretation Comments GLUCOSE (test code = 2217) 135 MG/DL BUN (test code = 2208) 25 MG/DL CREATININE (test code = 2214) 0.76 MG/DL eGFR AMER. (test code 101 ML/MIN/1.73 = 92335) eGFR NON- AMER. (test 87 ML/MIN/1.73 code = 73503) SODIUM (test code = 2231) 139 MEQ/L POTASSIUM (test code = 2228) 4.7 MEQ/L CHLORIDE (test code = 2215) 99 MEQ/L CARBON DIOXIDE (test code = 26 MEQ/L 2206) CALCIUM (test code = 2209) 9.4 MG/DL LIPID [id number] 00:00:00 Test Item Value Reference Range Interpretation Comments CHOLESTEROL (test code = 2210) 262 MG/DL TRIGLYCERIDES (test code = 2232) 300 MG/DL HDL CHOLESTEROL (test code = 2220) 36 MG/DL CALC LDL CHOL (test code = 2237) 166 MG/DL RISK RATIO LDL/HDL (test code = 4.61 RATIO 2238) LIPID [id number] 00:00:00 Test Item Value Reference Range Interpretation Comments CHOLESTEROL (test code = 2210) 262 MG/DL TRIGLYCERIDES (test code = 2232) 300 MG/DL HDL CHOLESTEROL (test code = 2220) 36 MG/DL CALC LDL CHOL (test code = 2237) 166 MG/DL RISK RATIO LDL/HDL (test code = 4.61 RATIO 2238) HEMOGLOBIN [id number] 00:00:00 Test Item Value Reference Range Interpretation Comments HEMOGLOBIN A1c (test code = 96526) 6.2 % HEMOGLOBIN [id number] 00:00:00 Test Item Value Reference Range Interpretation Comments HEMOGLOBIN A1c (test code = 84487) 6.2 % HEMOGLOBIN [id number] 00:00:00 Test Item Value Reference Range Interpretation Comments HEMOGLOBIN A1c (test code = 59055) 6.2 % [id number] 00:00:00 Test Item Value Reference Range Interpretation Comments TSH, THIRD GENERATION (test code 0.988 UIU/ML = 2821) [id number] 00:00:00 Test Item Value Reference Range Interpretation Comments TSH, THIRD GENERATION (test code 0.988 UIU/ML = 2821) [id number] 00:00:00 Test Item Value Reference Range Interpretation Comments TSH, THIRD GENERATION (test code 0.988 UIU/ML = 2821) COMPREHENSIVE METABOLIC [id number] 00:00:00 Test Item Value Reference Range Interpretation Comments GLUCOSE (test code = 2217) 109 MG/DL BUN (test code = 2208) 25 MG/DL CREATININE (test code = 2214) 0.78 MG/DL eGFR AMER. (test code 98 ML/MIN/1.73 = 50607) eGFR NON- AMER. (test 84 ML/MIN/1.73 code = 35370) CALC BUN/CREAT (test code = 32 RATIO [...] code = 2219) 25 U/L COMPREHENSIVE METABOLIC [id number] 00:00:00 Test Item Value Reference Range Interpretation Comments GLUCOSE (test code = 2217) 109 MG/DL BUN (test code = 2208) 25 MG/DL CREATININE (test code = 2214) 0.78 MG/DL eGFR AMER. (test code 98 ML/MIN/1.73 = 24347) eGFR NON- AMER. (test 84 ML/MIN/1.73 code = 53341) CALC BUN/CREAT (test code = 32 RATIO [...] (test code = 2219) 25 U/L LIPID [id number] 00:00:00 Test Item Value Reference Range Interpretation Comments CHOLESTEROL (test code = 2210) 295 MG/DL TRIGLYCERIDES (test code = 2232) 218 MG/DL HDL CHOLESTEROL (test code = 2220) 46 MG/DL CALC LDL CHOL (test code = 2237) 205 MG/DL RISK RATIO LDL/HDL (test code = 4.47 RATIO 2238) LIPID [id number] 00:00:00 Test Item Value Reference Range Interpretation Comments CHOLESTEROL (test code = 2210) 295 MG/DL TRIGLYCERIDES (test code = 2232) 218 MG/DL HDL CHOLESTEROL (test code = 2220) 46 MG/DL CALC LDL CHOL (test code = 2237) 205 MG/DL RISK RATIO LDL/HDL (test code = 4.47 RATIO 2238) HEMOGLOBIN [id number] 00:00:00 Test Item Value Reference Range Interpretation Comments HEMOGLOBIN A1c (test code = 77204) 7.0 % HEMOGLOBIN [id number] 00:00:00 Test Item Value Reference Range Interpretation Comments HEMOGLOBIN A1c (test code = 93621) 7.0 % HEMOGLOBIN [id number] 00:00:00 Test Item Value Reference Range Interpretation Comments HEMOGLOBIN A1c (test code = 66045) 7.0 % [id number] 00:00:00 Test Item Value Reference Range Interpretation Comments TSH, THIRD GENERATION (test code 0.565 UIU/ML = 2821) [id number] 00:00:00 Test Item Value Reference Range Interpretation Comments TSH, THIRD GENERATION (test code 0.565 UIU/ML = 2821) [id number] 00:00:00 Test Item Value Reference Range Interpretation Comments TSH, THIRD GENERATION (test code 0.565 UIU/ML = 2821) COMPREHENSIVE METABOLIC [id number] 00:00:00 Test Item Value Reference Range Interpretation Comments GLUCOSE (test code = 2217) 109 MG/DL BUN (test code = 2208) 25 MG/DL CREATININE (test code = 2214) 0.78 MG/DL eGFR AMER. (test code 98 ML/MIN/1.73 = 95298) eGFR NON- AMER. (test 84 ML/MIN/1.73 code = 45946) CALC BUN/CREAT (test code = 32 RATIO [...] code = 2219) 25 U/L COMPREHENSIVE METABOLIC [id number] 00:00:00 Test Item Value Reference Range Interpretation Comments GLUCOSE (test code = 2217) 109 MG/DL BUN (test code = 2208) 25 MG/DL CREATININE (test code = 2214) 0.78 MG/DL eGFR AMER. (test code 98 ML/MIN/1.73 = 35213) eGFR NON- AMER. (test 84 ML/MIN/1.73 code = 15973) CALC BUN/CREAT (test code = 32 RATIO [...] (test code = 2219) 25 U/L LIPID [id number] 00:00:00 Test Item Value Reference Range Interpretation Comments CHOLESTEROL (test code = 2210) 295 MG/DL TRIGLYCERIDES (test code = 2232) 218 MG/DL HDL CHOLESTEROL (test code = 2220) 46 MG/DL CALC LDL CHOL (test code = 2237) 205 MG/DL RISK RATIO LDL/HDL (test code = 4.47 RATIO 2238) LIPID [id number] 00:00:00 Test Item Value Reference Range Interpretation Comments CHOLESTEROL (test code = 2210) 295 MG/DL TRIGLYCERIDES (test code = 2232) 218 MG/DL HDL CHOLESTEROL (test code = 2220) 46 MG/DL CALC LDL CHOL (test code = 2237) 205 MG/DL RISK RATIO LDL/HDL (test code = 4.47 RATIO 2238) HEMOGLOBIN [id number] 00:00:00 Test Item Value Reference Range Interpretation Comments HEMOGLOBIN A1c (test code = 27137) 7.0 % HEMOGLOBIN [id number] 00:00:00 Test Item Value Reference Range Interpretation Comments HEMOGLOBIN A1c (test code = 71442) 7.0 % HEMOGLOBIN [id number] 00:00:00 Test Item Value Reference Range Interpretation Comments HEMOGLOBIN A1c (test code = 25076) 7.0 % [id number] 00:00:00 Test Item Value Reference Range Interpretation Comments TSH, THIRD GENERATION (test code 0.565 UIU/ML = 2821) [id number] 00:00:00 Test Item Value Reference Range Interpretation Comments TSH, THIRD GENERATION (test code 0.565 UIU/ML = 2821) [id number] 00:00:00 Test Item Value Reference Range Interpretation Comments TSH, THIRD GENERATION (test code 0.565 UIU/ML = 2821) COMPREHENSIVE METABOLIC [id number] 00:00:00 Test Item Value Reference Range Interpretation Comments GLUCOSE (test code = 2217) 109 MG/DL BUN (test code = 2208) 25 MG/DL CREATININE (test code = 2214) 0.78 MG/DL eGFR AMER. (test code 98 ML/MIN/1.73 = 40118) eGFR NON- AMER. (test 84 ML/MIN/1.73 code = 00136) CALC BUN/CREAT (test code = 32 RATIO [...] (test code = 2219) 25 U/L LIPID [id number] 00:00:00 Test Item Value Reference Range Interpretation Comments CHOLESTEROL (test code = 2210) 295 MG/DL TRIGLYCERIDES (test code = 2232) 218 MG/DL HDL CHOLESTEROL (test code = 2220) 46 MG/DL CALC LDL CHOL (test code = 2237) 205 MG/DL RISK RATIO LDL/HDL (test code = 4.47 RATIO 2238) HEMOGLOBIN [id number] 00:00:00 Test Item Value Reference Range Interpretation Comments HEMOGLOBIN A1c (test code = 18732) 7.0 % HEMOGLOBIN [id number] 00:00:00 Test Item Value Reference Range Interpretation Comments HEMOGLOBIN A1c (test code = 56455) 7.0 % [id number] 00:00:00 Test Item Value Reference Range Interpretation Comments TSH, THIRD GENERATION (test code 0.565 UIU/ML = 2821) [id number] 00:00:00 Test Item Value Reference Range Interpretation Comments TSH, THIRD GENERATION (test code 0.565 UIU/ML = 2821) COMPREHENSIVE METABOLIC [id number] 00:00:00 Test Item Value Reference Range Interpretation Comments GLUCOSE (test code = 2217) 109 MG/DL BUN (test code = 2208) 25 MG/DL CREATININE (test code = 2214) 0.78 MG/DL eGFR AMER. (test code 98 ML/MIN/1.73 = 92166) eGFR NON- AMER. (test 84 ML/MIN/1.73 code = 40013) CALC BUN/CREAT (test code = 32 RATIO [...] code = 2219) 25 U/L COMPREHENSIVE METABOLIC [id number] 00:00:00 Test Item Value Reference Range Interpretation Comments GLUCOSE (test code = 2217) 109 MG/DL BUN (test code = 2208) 25 MG/DL CREATININE (test code = 2214) 0.78 MG/DL eGFR AMER. (test code 98 ML/MIN/1.73 = 01950) eGFR NON- AMER. (test 84 ML/MIN/1.73 code = 87391) CALC BUN/CREAT (test code = 32 RATIO [...] (test code = 2219) 25 U/L LIPID [id number] 00:00:00 Test Item Value Reference Range Interpretation Comments CHOLESTEROL (test code = 2210) 295 MG/DL TRIGLYCERIDES (test code = 2232) 218 MG/DL HDL CHOLESTEROL (test code = 2220) 46 MG/DL CALC LDL CHOL (test code = 2237) 205 MG/DL RISK RATIO LDL/HDL (test code = 4.47 RATIO 2238) LIPID [id number] 00:00:00 Test Item Value Reference Range Interpretation Comments CHOLESTEROL (test code = 2210) 295 MG/DL TRIGLYCERIDES (test code = 2232) 218 MG/DL HDL CHOLESTEROL (test code = 2220) 46 MG/DL CALC LDL CHOL (test code = 2237) 205 MG/DL RISK RATIO LDL/HDL (test code = 4.47 RATIO 2238) HEMOGLOBIN [id number] 00:00:00 Test Item Value Reference Range Interpretation Comments HEMOGLOBIN A1c (test code = 00503) 7.0 % HEMOGLOBIN [id number] 00:00:00 Test Item Value Reference Range Interpretation Comments HEMOGLOBIN A1c (test code = 69059) 7.0 % HEMOGLOBIN [id number] 00:00:00 Test Item Value Reference Range Interpretation Comments HEMOGLOBIN A1c (test code = 83443) 7.0 % [id number] 00:00:00 Test Item Value Reference Range Interpretation Comments TSH, THIRD GENERATION (test code 0.565 UIU/ML = 2821) [id number] 00:00:00 Test Item Value Reference Range Interpretation Comments TSH, THIRD GENERATION (test code 0.565 UIU/ML = 2821) [id number] 00:00:00 Test Item Value Reference Range Interpretation Comments TSH, THIRD GENERATION (test code 0.565 UIU/ML = 2821) [id number] 00:00:00 Test Item Value Reference Range Interpretation Comments TSH, THIRD GENERATION (test code 0.379 UIU/ML = 2821) [id number] 00:00:00 Test Item Value Reference Range Interpretation Comments TSH, THIRD GENERATION (test code 0.379 UIU/ML = 2821) [id number] 00:00:00 Test Item Value Reference Range Interpretation Comments TSH, THIRD GENERATION (test code 0.379 UIU/ML = 2821) [id number] 00:00:00 Test Item Value Reference Range Interpretation Comments TSH, THIRD GENERATION (test code 0.379 UIU/ML = 2821) [id number] 00:00:00 Test Item Value Reference Range Interpretation Comments TSH, THIRD GENERATION (test code 0.379 UIU/ML = 2821) [id number] 00:00:00 Test Item Value Reference Range Interpretation Comments TSH, THIRD GENERATION (test code 0.379 UIU/ML = 2821) [id number] 00:00:00 Test Item Value Reference Range Interpretation Comments TSH, THIRD GENERATION (test code 0.379 UIU/ML = 2821) [id number] 00:00:00 Test Item Value Reference Range Interpretation Comments TSH, THIRD GENERATION (test code 0.379 UIU/ML = 2821) [id number] 00:00:00 Test Item Value Reference Range Interpretation Comments TSH, THIRD GENERATION (test code 0.379 UIU/ML = 2821) [id number] 00:00:00 Test Item Value Reference Range Interpretation Comments TSH, THIRD GENERATION (test code 0.379 UIU/ML = 2821) [id number] 00:00:00 Test Item Value Reference Range Interpretation Comments TSH, THIRD GENERATION (test code 0.379 UIU/ML = 2821) CULTURE, [id number] 00:00:00 Test Item Value Reference Range Interpretation Comments CULTURE, URINE (test SPECIMEN NUMBER: code = 39269) [id number] CULTURE, [id number] 00:00:00 Test Item Value Reference Range Interpretation Comments CULTURE, URINE (test SPECIMEN NUMBER: code = 98755) [id number] CULTURE, [id number] 00:00:00 Test Item Value Reference Range Interpretation Comments CULTURE, URINE (test SPECIMEN NUMBER: code = 55741) [id number] CULTURE, [id number] 00:00:00 Test Item Value Reference Range Interpretation Comments CULTURE, URINE (test SPECIMEN NUMBER: code = 92934) [id number] CULTURE, [id number] 00:00:00 Test Item Value Reference Range Interpretation Comments CULTURE, URINE (test SPECIMEN NUMBER: code = 84206) [id number] CULTURE, [id number] 00:00:00 Test Item Value Reference Range Interpretation Comments CULTURE, URINE (test SPECIMEN NUMBER: code = 35532) [id number] CULTURE, [id number] 00:00:00 Test Item Value Reference Range Interpretation Comments CULTURE, URINE (test SPECIMEN NUMBER: code = 15326) [id number] COMPREHENSIVE METABOLIC [id number] 00:00:00 Test Item Value Reference Range Interpretation Comments GLUCOSE (test code = 2217) 128 MG/DL BUN (test code = 2208) 26 MG/DL CREATININE (test code = 2214) 0.92 MG/DL eGFR AMER. (test code 81 ML/MIN/1.73 = 25548) eGFR NON- AMER. (test 70 ML/MIN/1.73 code = 80854) CALC BUN/CREAT (test code = 28 RATIO [...] code = 2219) 29 U/L COMPREHENSIVE METABOLIC [id number] 00:00:00 Test Item Value Reference Range Interpretation Comments GLUCOSE (test code = 2217) 128 MG/DL BUN (test code = 2208) 26 MG/DL CREATININE (test code = 2214) 0.92 MG/DL eGFR AMER. (test code 81 ML/MIN/1.73 = 55630) eGFR NON- AMER. (test 70 ML/MIN/1.73 code = 60575) CALC BUN/CREAT (test code = 28 RATIO [...] code = 2219) 29 U/L ACUTE HEPATITIS [id number] 00:00:00 Test Item Value Reference Range Interpretation Comments HEPATITIS A IgM (test code = NON-REACTIVE 93889) HEPATITIS B CORE IgM (test code NON-REACTIVE = 4644) HEPATITIS B SURF AG (test code = NON-REACTIVE 2739) HEPATITIS C ANTIBODY (test code NON-REACTIVE = 4675) INTERPRETATION HEPATITIS A: (NOTE) (test code = 2552) INTERPRETATION HEPATITIS B: (NOTE) (test code = 29284) INTERPRETATION HEPATITIS C: (NOTE) (test code = 31338) ACUTE HEPATITIS [id number] 00:00:00 Test Item Value Reference Range Interpretation Comments HEPATITIS A IgM (test code = NON-REACTIVE 09732) HEPATITIS B CORE IgM (test code NON-REACTIVE = 4644) HEPATITIS B SURF AG (test code = NON-REACTIVE 2739) HEPATITIS C ANTIBODY (test code NON-REACTIVE = 4675) INTERPRETATION HEPATITIS A: (NOTE) (test code = 2552) INTERPRETATION HEPATITIS B: (NOTE) (test code = 00071) INTERPRETATION HEPATITIS C: (NOTE) (test code = 27810) [id number] 00:00:00 Test Item Value Reference Range Interpretation Comments AMYLASE (test code = 2205) 32 U/L [id number] 00:00:00 Test Item Value Reference Range Interpretation Comments AMYLASE (test code = 2205) 32 U/L [id number] 00:00:00 Test Item Value Reference Range Interpretation Comments LIPASE (test code = 2058) 22 U/L [id number] 00:00:00 Test Item Value Reference Range Interpretation Comments LIPASE (test code = 2058) 22 U/L [id number] 00:00:00 Test Item Value Reference Range Interpretation Comments LIPASE (test code = 2058) 22 U/L COMPREHENSIVE METABOLIC [id number] 00:00:00 Test Item Value Reference Range Interpretation Comments GLUCOSE (test code = 2217) 128 MG/DL BUN (test code = 2208) 26 MG/DL CREATININE (test code = 2214) 0.92 MG/DL eGFR AMER. (test code 81 ML/MIN/1.73 = 52434) eGFR NON- AMER. (test 70 ML/MIN/1.73 code = 54015) CALC BUN/CREAT (test code = 28 RATIO [...] code = 2219) 29 U/L COMPREHENSIVE METABOLIC [id number] 00:00:00 Test Item Value Reference Range Interpretation Comments GLUCOSE (test code = 2217) 128 MG/DL BUN (test code = 2208) 26 MG/DL CREATININE (test code = 2214) 0.92 MG/DL eGFR AMER. (test code 81 ML/MIN/1.73 = 58527) eGFR NON- AMER. (test 70 ML/MIN/1.73 code = 51673) CALC BUN/CREAT (test code = 28 RATIO [...] code = 2219) 29 U/L ACUTE HEPATITIS [id number] 00:00:00 Test Item Value Reference Range Interpretation Comments HEPATITIS A IgM (test code = NON-REACTIVE 19387) HEPATITIS B CORE IgM (test code NON-REACTIVE = 4644) HEPATITIS B SURF AG (test code = NON-REACTIVE 2739) HEPATITIS C ANTIBODY (test code NON-REACTIVE = 4675) INTERPRETATION HEPATITIS A: (NOTE) (test code = 2552) INTERPRETATION HEPATITIS B: (NOTE) (test code = 75677) INTERPRETATION HEPATITIS C: (NOTE) (test code = 53358) ACUTE HEPATITIS [id number] 00:00:00 Test Item Value Reference Range Interpretation Comments HEPATITIS A IgM (test code = NON-REACTIVE 31094) HEPATITIS B CORE IgM (test code NON-REACTIVE = 4644) HEPATITIS B SURF AG (test code = NON-REACTIVE 2739) HEPATITIS C ANTIBODY (test code NON-REACTIVE = 4675) INTERPRETATION HEPATITIS A: (NOTE) (test code = 2552) INTERPRETATION HEPATITIS B: (NOTE) (test code = 69769) INTERPRETATION HEPATITIS C: (NOTE) (test code = 98597) [id number] 00:00:00 Test Item Value Reference Range Interpretation Comments AMYLASE (test code = 2205) 32 U/L [id number] 00:00:00 Test Item Value Reference Range Interpretation Comments AMYLASE (test code = 2205) 32 U/L [id number] 00:00:00 Test Item Value Reference Range Interpretation Comments LIPASE (test code = 2058) 22 U/L [id number] 00:00:00 Test Item Value Reference Range Interpretation Comments LIPASE (test code = 2058) 22 U/L [id number] 00:00:00 Test Item Value Reference Range Interpretation Comments LIPASE (test code = 2058) 22 U/L COMPREHENSIVE METABOLIC [id number] 00:00:00 Test Item Value Reference Range Interpretation Comments GLUCOSE (test code = 2217) 128 MG/DL BUN (test code = 2208) 26 MG/DL CREATININE (test code = 2214) 0.92 MG/DL eGFR AMER. (test code 81 ML/MIN/1.73 = 19754) eGFR NON- AMER. (test 70 ML/MIN/1.73 code = 28769) CALC BUN/CREAT (test code = 28 RATIO [...] code = 2219) 29 U/L ACUTE HEPATITIS [id number] 00:00:00 Test Item Value Reference Range Interpretation Comments HEPATITIS A IgM (test code = NON-REACTIVE 76918) HEPATITIS B CORE IgM (test code NON-REACTIVE = 6844) HEPATITIS B SURF AG (test code = NON-REACTIVE 7157) HEPATITIS C ANTIBODY (test code NON-REACTIVE = 4620) INTERPRETATION HEPATITIS A: (NOTE) (test code = 2552) INTERPRETATION HEPATITIS B: (NOTE) (test code = 03032) INTERPRETATION HEPATITIS C: (NOTE) (test code = 16081) [id number] 00:00:00 Test Item Value Reference Range Interpretation Comments AMYLASE (test code = 2205) 32 U/L [id number] 00:00:00 Test Item Value Reference Range Interpretation Comments LIPASE (test code = 2057) 22 U/L [id number] 00:00:00 Test Item Value Reference Range Interpretation Comments LIPASE (test code = 2058) 22 U/L COMPREHENSIVE METABOLIC [id number] 00:00:00 Test Item Value Reference Range Interpretation Comments GLUCOSE (test code = 2217) 128 MG/DL BUN (test code = 2208) 26 MG/DL CREATININE (test code = 2214) 0.92 MG/DL eGFR AMER. (test code 81 ML/MIN/1.73 = 58604) eGFR NON- AMER. (test 70 ML/MIN/1.73 code = 20570) CALC BUN/CREAT (test code = 28 RATIO [...] code = 2219) 29 U/L COMPREHENSIVE METABOLIC [id number] 00:00:00 Test Item Value Reference Range Interpretation Comments GLUCOSE (test code = 2217) 128 MG/DL BUN (test code = 2208) 26 MG/DL CREATININE (test code = 2214) 0.92 MG/DL eGFR AMER. (test code 81 ML/MIN/1.73 = 71283) eGFR NON- AMER. (test 70 ML/MIN/1.73 code = 13081) CALC BUN/CREAT (test code = 28 RATIO [...] code = 2219) 29 U/L ACUTE HEPATITIS [id number] 00:00:00 Test Item Value Reference Range Interpretation Comments HEPATITIS A IgM (test code = NON-REACTIVE 85641) HEPATITIS B CORE IgM (test code NON-REACTIVE = 4644) HEPATITIS B SURF AG (test code = NON-REACTIVE 2739) HEPATITIS C ANTIBODY (test code NON-REACTIVE = 4675) INTERPRETATION HEPATITIS A: (NOTE) (test code = 2552) INTERPRETATION HEPATITIS B: (NOTE) (test code = 82764) INTERPRETATION HEPATITIS C: (NOTE) (test code = 60722) ACUTE HEPATITIS [id number] 00:00:00 Test Item Value Reference Range Interpretation Comments HEPATITIS A IgM (test code = NON-REACTIVE 19143) HEPATITIS B CORE IgM (test code NON-REACTIVE = 4644) HEPATITIS B SURF AG (test code = NON-REACTIVE 2739) HEPATITIS C ANTIBODY (test code NON-REACTIVE = 4675) INTERPRETATION HEPATITIS A: (NOTE) (test code = 2552) INTERPRETATION HEPATITIS B: (NOTE) (test code = 16601) INTERPRETATION HEPATITIS C: (NOTE) (test code = 71767) [id number] 00:00:00 Test Item Value Reference Range Interpretation Comments AMYLASE (test code = 2205) 32 U/L [id number] 00:00:00 Test Item Value Reference Range Interpretation Comments AMYLASE (test code = 2205) 32 U/L [id number] 00:00:00 Test Item Value Reference Range Interpretation Comments LIPASE (test code = 8) 22 U/L [id number] 00:00:00 Test Item Value Reference Range Interpretation Comments LIPASE (test code = 2057) 22 U/L [id number] 00:00:00 Test Item Value Reference Range Interpretation Comments LIPASE (test code = 2057) 22 U/L [id number] 00:00:00 Test Item Value Reference Range Interpretation Comments TSH, THIRD GENERATION (test code 4.890 UIU/ML = 2821) [id number] 00:00:00 Test Item Value Reference Range Interpretation Comments TSH, THIRD GENERATION (test code 4.890 UIU/ML = 2821) [id number] 00:00:00 Test Item Value Reference Range Interpretation Comments TSH, THIRD GENERATION (test code 4.890 UIU/ML = 2821) COMPREHENSIVE METABOLIC [id number] 00:00:00 Test Item Value Reference Range Interpretation Comments GLUCOSE (test code = 2217) 121 MG/DL BUN (test code = 2208) 40 MG/DL CREATININE (test code = 2214) 1.48 MG/DL eGFR AMER. (test code 45 ML/MIN/1.73 = 26617) eGFR NON- AMER. (test 39 ML/MIN/1.73 code = 43190) CALC BUN/CREAT (test code = 27 RATIO [...] code = 2219) 20 U/L COMPREHENSIVE METABOLIC [id number] 00:00:00 Test Item Value Reference Range Interpretation Comments GLUCOSE (test code = 2217) 121 MG/DL BUN (test code = 2208) 40 MG/DL CREATININE (test code = 2214) 1.48 MG/DL eGFR AMER. (test code 45 ML/MIN/1.73 = 16078) eGFR NON- AMER. (test 39 ML/MIN/1.73 code = 59720) CALC BUN/CREAT (test code = 27 RATIO [...] ALT (test code = 2219) 20 U/L [id number] 00:00:00 Test Item Value Reference Range Interpretation Comments TSH, THIRD GENERATION (test code 4.890 UIU/ML = 2821) [id number] 00:00:00 Test Item Value Reference Range Interpretation Comments TSH, THIRD GENERATION (test code 4.890 UIU/ML = 2821) [id number] 00:00:00 Test Item Value Reference Range Interpretation Comments TSH, THIRD GENERATION (test code 4.890 UIU/ML = 2821) COMPREHENSIVE METABOLIC [id number] 00:00:00 Test Item Value Reference Range Interpretation Comments GLUCOSE (test code = 2217) 121 MG/DL BUN (test code = 2208) 40 MG/DL CREATININE (test code = 2214) 1.48 MG/DL eGFR AMER. (test code 45 ML/MIN/1.73 = 72700) eGFR NON- AMER. (test 39 ML/MIN/1.73 code = 68378) CALC BUN/CREAT (test code = 27 RATIO [...] code = 2219) 20 U/L COMPREHENSIVE METABOLIC [id number] 00:00:00 Test Item Value Reference Range Interpretation Comments GLUCOSE (test code = 2217) 121 MG/DL BUN (test code = 2208) 40 MG/DL CREATININE (test code = 2214) 1.48 MG/DL eGFR AMER. (test code 45 ML/MIN/1.73 = 58591) eGFR NON- AMER. (test 39 ML/MIN/1.73 code = 40275) CALC BUN/CREAT (test code = 27 RATIO [...] ALT (test code = 2219) 20 U/L [id number] 00:00:00 Test Item Value Reference Range Interpretation Comments TSH, THIRD GENERATION (test code 4.890 UIU/ML = 2821) [id number] 00:00:00 Test Item Value Reference Range Interpretation Comments TSH, THIRD GENERATION (test code 4.890 UIU/ML = 2821) COMPREHENSIVE METABOLIC [id number] 00:00:00 Test Item Value Reference Range Interpretation Comments GLUCOSE (test code = 2217) 121 MG/DL BUN (test code = 2208) 40 MG/DL CREATININE (test code = 2214) 1.48 MG/DL eGFR AMER. (test code 45 ML/MIN/1.73 = 34065) eGFR NON- AMER. (test 39 ML/MIN/1.73 code = 83121) CALC BUN/CREAT (test code = 27 RATIO [...] ALT (test code = 2219) 20 U/L [id number] 00:00:00 Test Item Value Reference Range Interpretation Comments TSH, THIRD GENERATION (test code 4.890 UIU/ML = 2821) [id number] 00:00:00 Test Item Value Reference Range Interpretation Comments TSH, THIRD GENERATION (test code 4.890 UIU/ML = 2821) [id number] 00:00:00 Test Item Value Reference Range Interpretation Comments TSH, THIRD GENERATION (test code 4.890 UIU/ML = 2821) COMPREHENSIVE METABOLIC [id number] 00:00:00 Test Item Value Reference Range Interpretation Comments GLUCOSE (test code = 2217) 121 MG/DL BUN (test code = 2208) 40 MG/DL CREATININE (test code = 2214) 1.48 MG/DL eGFR AMER. (test code 45 ML/MIN/1.73 = 11104) eGFR NON- AMER. (test 39 ML/MIN/1.73 code = 16292) CALC BUN/CREAT (test code = 27 RATIO [...] code = 2219) 20 U/L COMPREHENSIVE METABOLIC [id number] 00:00:00 Test Item Value Reference Range Interpretation Comments GLUCOSE (test code = 2217) 121 MG/DL BUN (test code = 2208) 40 MG/DL CREATININE (test code = 2214) 1.48 MG/DL eGFR AMER. (test code 45 ML/MIN/1.73 = 38571) eGFR NON- AMER. (test 39 ML/MIN/1.73 code = 16978) CALC BUN/CREAT (test code = 27 RATIO [...] (test code = 2219) 20 U/L LIPID [id number] 00:00:00 Test Item Value Reference Range Interpretation Comments CHOLESTEROL (test code = 2210) 261 MG/DL TRIGLYCERIDES (test code = 2232) 165 MG/DL HDL CHOLESTEROL (test code = 2220) 58 MG/DL CALC LDL CHOL (test code = 2237) 170 MG/DL RISK RATIO LDL/HDL (test code = 2.93 RATIO 2238) LIPID [id number] 00:00:00 Test Item Value Reference Range Interpretation Comments CHOLESTEROL (test code = 2210) 261 MG/DL TRIGLYCERIDES (test code = 2232) 165 MG/DL HDL CHOLESTEROL (test code = 2220) 58 MG/DL CALC LDL CHOL (test code = 2237) 170 MG/DL RISK RATIO LDL/HDL (test code = 2.93 RATIO 2238) CBC W/AUTO [id number] 00:00:00 Test Item Value Reference Range Interpretation [...] code = 1015) 378 K/UL CBC W/AUTO [id number] 00:00:00 Test Item Value Reference Range Interpretation [...] code = 1015) 378 K/UL CBC W/AUTO [id number] 00:00:00 Test Item Value Reference Range Interpretation [...] (test code = 1015) 378 K/UL HEMOGLOBIN [id number] 00:00:00 Test Item Value Reference Range Interpretation Comments HEMOGLOBIN A1c (test code = 68161) 6.4 % HEMOGLOBIN [id number] 00:00:00 Test Item Value Reference Range Interpretation Comments HEMOGLOBIN A1c (test code = 10697) 6.4 % HEMOGLOBIN [id number] 00:00:00 Test Item Value Reference Range Interpretation Comments HEMOGLOBIN A1c (test code = 08883) 6.4 % [id number] 00:00:00 Test Item Value Reference Range Interpretation Comments TSH (test code = 2821) 5.290 UIU/ML [id number] 00:00:00 Test Item Value Reference Range Interpretation Comments TSH (test code = 2821) 5.290 UIU/ML [id number] 00:00:00 Test Item Value Reference Range Interpretation Comments TSH (test code = 2821) 5.290 UIU/ML LIPID [id number] 00:00:00 Test Item Value Reference Range Interpretation Comments CHOLESTEROL (test code = 2210) 261 MG/DL TRIGLYCERIDES (test code = 2232) 165 MG/DL HDL CHOLESTEROL (test code = 2220) 58 MG/DL CALC LDL CHOL (test code = 2237) 170 MG/DL RISK RATIO LDL/HDL (test code = 2.93 RATIO 2238) LIPID [id number] 00:00:00 Test Item Value Reference Range Interpretation Comments CHOLESTEROL (test code = 2210) 261 MG/DL TRIGLYCERIDES (test code = 2232) 165 MG/DL HDL CHOLESTEROL (test code = 2220) 58 MG/DL CALC LDL CHOL (test code = 2237) 170 MG/DL RISK RATIO LDL/HDL (test code = 2.93 RATIO 2238) CBC W/AUTO [id number] 00:00:00 Test Item Value Reference Range Interpretation [...] code = 1015) 378 K/UL CBC W/AUTO [id number] 00:00:00 Test Item Value Reference Range Interpretation [...] code = 1015) 378 K/UL CBC W/AUTO [id number] 00:00:00 Test Item Value Reference Range Interpretation [...] (test code = 1015) 378 K/UL HEMOGLOBIN [id number] 00:00:00 Test Item Value Reference Range Interpretation Comments HEMOGLOBIN A1c (test code = 76043) 6.4 % HEMOGLOBIN [id number] 00:00:00 Test Item Value Reference Range Interpretation Comments HEMOGLOBIN A1c (test code = 77034) 6.4 % HEMOGLOBIN [id number] 00:00:00 Test Item Value Reference Range Interpretation Comments HEMOGLOBIN A1c (test code = 23390) 6.4 % [id number] 00:00:00 Test Item Value Reference Range Interpretation Comments TSH (test code = 2821) 5.290 UIU/ML [id number] 00:00:00 Test Item Value Reference Range Interpretation Comments TSH (test code = 2821) 5.290 UIU/ML [id number] 00:00:00 Test Item Value Reference Range Interpretation Comments TSH (test code = 2821) 5.290 UIU/ML LIPID [id number] 00:00:00 Test Item Value Reference Range Interpretation Comments CHOLESTEROL (test code = 2210) 261 MG/DL TRIGLYCERIDES (test code = 2232) 165 MG/DL HDL CHOLESTEROL (test code = 2220) 58 MG/DL CALC LDL CHOL (test code = 2237) 170 MG/DL RISK RATIO LDL/HDL (test code = 2.93 RATIO 2238) CBC W/AUTO [id number] 00:00:00 Test Item Value Reference Range Interpretation [...] code = 1015) 378 K/UL CBC W/AUTO [id number] 00:00:00 Test Item Value Reference Range Interpretation [...] (test code = 1015) 378 K/UL HEMOGLOBIN [id number] 00:00:00 Test Item Value Reference Range Interpretation Comments HEMOGLOBIN A1c (test code = 56336) 6.4 % HEMOGLOBIN [id number] 00:00:00 Test Item Value Reference Range Interpretation Comments HEMOGLOBIN A1c (test code = 24966) 6.4 % [id number] 00:00:00 Test Item Value Reference Range Interpretation Comments TSH (test code = 2821) 5.290 UIU/ML [id number] 00:00:00 Test Item Value Reference Range Interpretation Comments TSH (test code = 2821) 5.290 UIU/ML LIPID [id number] 00:00:00 Test Item Value Reference Range Interpretation Comments CHOLESTEROL (test code = 2210) 261 MG/DL TRIGLYCERIDES (test code = 2232) 165 MG/DL HDL CHOLESTEROL (test code = 2220) 58 MG/DL CALC LDL CHOL (test code = 2237) 170 MG/DL RISK RATIO LDL/HDL (test code = 2.93 RATIO 2238) LIPID [id number] 00:00:00 Test Item Value Reference Range Interpretation Comments CHOLESTEROL (test code = 2210) 261 MG/DL TRIGLYCERIDES (test code = 2232) 165 MG/DL HDL CHOLESTEROL (test code = 2220) 58 MG/DL CALC LDL CHOL (test code = 2237) 170 MG/DL RISK RATIO LDL/HDL (test code = 2.93 RATIO 2238) CBC W/AUTO [id number] 00:00:00 Test Item Value Reference Range Interpretation [...] code = 1015) 378 K/UL CBC W/AUTO [id number] 00:00:00 Test Item Value Reference Range Interpretation [...] code = 1015) 378 K/UL CBC W/AUTO [id number] 00:00:00 Test Item Value Reference Range Interpretation [...] (test code = 1015) 378 K/UL HEMOGLOBIN [id number] 00:00:00 Test Item Value Reference Range Interpretation Comments HEMOGLOBIN A1c (test code = 90760) 6.4 % HEMOGLOBIN [id number] 00:00:00 Test Item Value Reference Range Interpretation Comments HEMOGLOBIN A1c (test code = 55542) 6.4 % HEMOGLOBIN [id number] 00:00:00 Test Item Value Reference Range Interpretation Comments HEMOGLOBIN A1c (test code = 28396) 6.4 % [id number] 00:00:00 Test Item Value Reference Range Interpretation Comments TSH (test code = 2821) 5.290 UIU/ML [id number] 00:00:00 Test Item Value Reference Range Interpretation Comments TSH (test code = 2821) 5.290 UIU/ML [id number] 00:00:00 Test Item Value Reference Range Interpretation [...] code = 2821) 1.030 UIU/ML COMPREHENSIVE METABOLIC [id number] 00:00:00 Test Item Value Reference Range Interpretation Comments GLUCOSE (test code = 2217) 106 MG/DL BUN (test code = 2208) 23 MG/DL CREATININE (test code = 2214) 0.66 MG/DL eGFR AMER. (test code 114 ML/MIN/1.73 = 11838) eGFR NON- AMER. (test 99 ML/MIN/1.73 code = 12197) CALC BUN/CREAT (test code = 35 RATIO [...] code = 2219) 31 U/L COMPREHENSIVE METABOLIC [id number] 00:00:00 Test Item Value Reference Range Interpretation Comments GLUCOSE (test code = 2217) 106 MG/DL BUN (test code = 2208) 23 MG/DL CREATININE (test code = 2214) 0.66 MG/DL eGFR AMER. (test code 114 ML/MIN/1.73 = 55635) eGFR NON- AMER. (test 99 ML/MIN/1.73 code = 00768) CALC BUN/CREAT (test code = 35 RATIO [...] code = 2821) 0.335 UIU/ML COMPREHENSIVE METABOLIC [id number] 00:00:00 Test Item Value Reference Range Interpretation Comments GLUCOSE (test code = 2217) 106 MG/DL BUN (test code = 2208) 23 MG/DL CREATININE (test code = 2214) 0.66 MG/DL eGFR AMER. (test code 114 ML/MIN/1.73 = 05718) eGFR NON- AMER. (test 99 ML/MIN/1.73 code = 81603) CALC BUN/CREAT (test code = 35 RATIO [...] code = 2219) 31 U/L COMPREHENSIVE METABOLIC [id number] 00:00:00 Test Item Value Reference Range Interpretation Comments GLUCOSE (test code = 2217) 106 MG/DL BUN (test code = 2208) 23 MG/DL CREATININE (test code = 2214) 0.66 MG/DL eGFR AMER. (test code 114 ML/MIN/1.73 = 47689) eGFR NON- AMER. (test 99 ML/MIN/1.73 code = 22527) CALC BUN/CREAT (test code = 35 RATIO [...] code = 2821) 0.335 UIU/ML COMPREHENSIVE METABOLIC [id number] 00:00:00 Test Item Value Reference Range Interpretation Comments GLUCOSE (test code = 2217) 106 MG/DL BUN (test code = 2208) 23 MG/DL CREATININE (test code = 2214) 0.66 MG/DL eGFR AMER. (test code 114 ML/MIN/1.73 = 84208) eGFR NON- AMER. (test 99 ML/MIN/1.73 code = 93362) CALC BUN/CREAT (test code = 35 RATIO 5) SODIUM (test code = 2231) [...] code = 2821) 0.335 UIU/ML COMPREHENSIVE METABOLIC [id number] 00:00:00 Test Item Value Reference Range Interpretation Comments GLUCOSE (test code = 2217) 106 MG/DL BUN (test code = 2208) 23 MG/DL CREATININE (test code = 2214) 0.66 MG/DL eGFR AMER. (test code 114 ML/MIN/1.73 = 15590) eGFR NON- AMER. (test 99 ML/MIN/1.73 code = 16903) CALC BUN/CREAT (test code = 35 RATIO [...] code = 2219) 31 U/L COMPREHENSIVE METABOLIC [id number] 00:00:00 Test Item Value Reference Range Interpretation Comments GLUCOSE (test code = 2217) 106 MG/DL BUN (test code = 2208) 23 MG/DL CREATININE (test code = 2214) 0.66 MG/DL eGFR AMER. (test code 114 ML/MIN/1.73 = 13322) eGFR NON- AMER. (test 99 ML/MIN/1.73 code = 71971) CALC BUN/CREAT (test code = 35 RATIO [...] code = 2821) 0.335 UIU/ML COMPREHENSIVE METABOLIC [id number] 00:00:00 Test Item Value Reference Range Interpretation Comments GLUCOSE (test code = 2217) 103 MG/DL BUN (test code = 2208) 15 MG/DL CREATININE (test code = 2214) 0.77 MG/DL eGFR AMER. (test code 101 ML/MIN/1.73 = 83862) eGFR NON- AMER. (test 87 ML/MIN/1.73 code = 17041) CALC BUN/CREAT (test code = 19 RATIO [...] code = 2219) 24 U/L COMPREHENSIVE METABOLIC [id number] 00:00:00 Test Item Value Reference Range Interpretation Comments GLUCOSE (test code = 2217) 103 MG/DL BUN (test code = 2208) 15 MG/DL CREATININE (test code = 2214) 0.77 MG/DL eGFR AMER. (test code 101 ML/MIN/1.73 = 48866) eGFR NON- AMER. (test 87 ML/MIN/1.73 code = 98113) CALC BUN/CREAT (test code = 19 RATIO [...] CALCULATED T7 (FTI) (test code = 1.37 4620) TSH (test code = 2821) 0.424 UIU/ML THYROID II PROFILE (T3U, T4, T7, [id number] 00:00:00 Test Item Value Reference Range Interpretation Comments T3 UPTAKE (test code = 2817) 35.1 % T4 (THYROXINE) (test code = 3.9 UG/DL 2818) CALCULATED T7 (FTI) (test code = 1.37 2820) TSH (test code = 2821) 0.424 UIU/ML COMPREHENSIVE METABOLIC [id number] 00:00:00 Test Item Value Reference Range Interpretation Comments GLUCOSE (test code = 2217) 103 MG/DL BUN (test code = 2208) 15 MG/DL CREATININE (test code = 2214) 0.77 MG/DL eGFR AMER. (test code 101 ML/MIN/1.73 = 22783) eGFR NON- AMER. (test 87 ML/MIN/1.73 code = 96140) CALC BUN/CREAT (test code = 19 RATIO [...] code = 2219) 24 U/L COMPREHENSIVE METABOLIC [id number] 00:00:00 Test Item Value Reference Range Interpretation Comments GLUCOSE (test code = 2217) 103 MG/DL BUN (test code = 2208) 15 MG/DL CREATININE (test code = 2214) 0.77 MG/DL eGFR AMER. (test code 101 ML/MIN/1.73 = 02137) eGFR NON- AMER. (test 87 ML/MIN/1.73 code = 39644) CALC BUN/CREAT (test code = 19 RATIO [...] code = 2821) 0.424 UIU/ML COMPREHENSIVE METABOLIC [id number] 00:00:00 Test Item Value Reference Range Interpretation Comments GLUCOSE (test code = 2217) 103 MG/DL BUN (test code = 2208) 15 MG/DL CREATININE (test code = 2214) 0.77 MG/DL eGFR AMER. (test code 101 ML/MIN/1.73 = 48896) eGFR NON- AMER. (test 87 ML/MIN/1.73 code = 90039) CALC BUN/CREAT (test code = 19 RATIO [...] code = 2821) 0.424 UIU/ML COMPREHENSIVE METABOLIC [id number] 00:00:00 Test Item Value Reference Range Interpretation Comments GLUCOSE (test code = 2217) 103 MG/DL BUN (test code = 2208) 15 MG/DL CREATININE (test code = 2214) 0.77 MG/DL eGFR AMER. (test code 101 ML/MIN/1.73 = 67665) eGFR NON- AMER. (test 87 ML/MIN/1.73 code = 64675) CALC BUN/CREAT (test code = 19 RATIO [...] code = 2219) 24 U/L COMPREHENSIVE METABOLIC [id number] 00:00:00 Test Item Value Reference Range Interpretation Comments GLUCOSE (test code = 2217) 103 MG/DL BUN (test code = 2208) 15 MG/DL CREATININE (test code = 2214) 0.77 MG/DL eGFR AMER. (test code 101 ML/MIN/1.73 = 36839) eGFR NON- AMER. (test 87 ML/MIN/1.73 code = 66764) CALC BUN/CREAT (test code = 19 RATIO [...] (test code = 2821) 0.424 UIU/ML CULTURE, [id number] 00:00:00 Test Item Value Reference Range Interpretation Comments CULTURE, URINE (test SPECIMEN NUMBER: code = 74560) [id number] CULTURE, [id number] 00:00:00 Test Item Value Reference Range Interpretation Comments CULTURE, URINE (test SPECIMEN NUMBER: code = 77241) [id number] CULTURE, [id number] 00:00:00 Test Item Value Reference Range Interpretation Comments CULTURE, URINE (test SPECIMEN NUMBER: code = 94857) [id number] CULTURE, [id number] 00:00:00 Test Item Value Reference Range Interpretation Comments CULTURE, URINE (test SPECIMEN NUMBER: code = 40730) [id number] CULTURE, [id number] 00:00:00 Test Item Value Reference Range Interpretation Comments CULTURE, URINE (test SPECIMEN NUMBER: code = 73476) [id number] CULTURE, [id number] 00:00:00 Test Item Value Reference Range Interpretation Comments CULTURE, URINE (test SPECIMEN NUMBER: code = 11388) [id number] CULTURE, [id number] 00:00:00 Test Item Value Reference Range Interpretation Comments CULTURE, URINE (test SPECIMEN NUMBER: code = 27250) [id number] CULTURE, [id number] 00:00:00 Test Item Value Reference Range Interpretation Comments CULTURE, URINE (test SPECIMEN NUMBER: code = 36111) [id number] CULTURE, [id number] 00:00:00 Test Item Value Reference Range Interpretation Comments CULTURE, URINE (test SPECIMEN NUMBER: code = 23047) [id number] CULTURE, [id number] 00:00:00 Test Item Value Reference Range Interpretation Comments CULTURE, URINE (test SPECIMEN NUMBER: code = 30578) [id number] CULTURE, [id number] 00:00:00 Test Item Value Reference Range Interpretation Comments CULTURE, URINE (test SPECIMEN NUMBER: code = 13277) [id number] CULTURE, [id number] 00:00:00 Test Item Value Reference Range Interpretation Comments CULTURE, URINE (test SPECIMEN NUMBER: code = 26553) [id number] CULTURE, [id number] 00:00:00 Test Item Value Reference Range Interpretation Comments CULTURE, URINE (test SPECIMEN NUMBER: code = 90114) [id number] CULTURE, [id number] 00:00:00 Test Item Value Reference Range Interpretation Comments CULTURE, URINE (test SPECIMEN NUMBER: code = 31096) [id number]
[2022-03-10] MEDS ORDERED: ONDANSETRON 4 MG (ODT) TAB ONE (10:39)
--- NOTE | 2022-03-10 11:09 | ER ---
Nurse's Notes [facility] Name: Jaimie Amanda Age: 61 yrs Sex: Female : 1960 Arrival Date: 03/10/2022 Time: 09:17 Bed IW2 Private MD: Diagnosis: Nausea with vomiting, unspecified Presentation: 03/10 09:35 Chief complaint: Patient states: N/V and abd pain x 2 days. Coronavirus screen: Client ss denies travel out of the [place] in the last 14 days. Ebola Screen: Patient denies exposure to infectious person. Patient denies travel to an Ebola-affected area in the 21 days before illness onset. 09:35 Method Of Arrival: Ambulatory ss 09:35 Initial Sepsis Screen: Does the patient meet any 2 criteria? No. Patient's initial ss sepsis screen is negative. Does the patient have a suspected source of infection? No. Patient's initial sepsis screen is negative. Risk Assessment: Do you want to hurt yourself or someone else? Patient reports no desire to harm self or others. Onset of symptoms was March 08, 2022. 09:35 Acuity: ZHEN 3 ss Historical: - Allergies: 09:36 No Known Allergies; ss - PMHx: 09:36 Anxiety; Chronic Abdominal Pain; Hypertensive disorder; Hypothyroidism; low NA; NIDDM; ss - PSHx: 09:36 Thyroidectomy; ss - Immunization history:: Client reports receiving the 2nd dose of the Covid vaccine. - Social history:: Smoking status: Patient reports the use of cigarette tobacco products, smokes one-half pack cigarettes per day. Screenin:35 [facility] ED Fall Risk Assessment (Adult) History of falling in the last 3 months, ss including since admission. Abuse screen: Denies threats or abuse. Denies injuries from another. Nutritional screening: No deficits noted. Tuberculosis screening: Never had TB. Assessment: 09:35 General: Appears in no apparent distress. comfortable, Behavior is calm. Neuro: Level ss of Consciousness is awake, alert, obeys commands, Oriented to person, place, time, situation. Respiratory: Airway is patent Respiratory effort is even, unlabored, Respiratory pattern is regular, symmetrical. GI: Reports nausea, vomiting. Derm: Skin is intact, is healthy with good turgor, Skin is dry, Skin is pink, warm \\T\\ dry. normal. Musculoskeletal: Circulation, motion, and sensation intact. Range of motion: intact in all extremities. 11:04 Reassessment: Pt tolerated drinking coke. Pt states, "I'm ready to go home on.". Vital Signs: 09:36 BP 142 / 87; Pulse 84; Resp 16; Temp 97.9(TE); Pulse Ox 95% on R/A; Weight 70.31 kg; Height 5 ft. 7 in. (170.18 cm); Pain 8/10; 09:36 Body Mass Index 24.28 (70.31 kg, 170.18 cm) ED Course: 09:17 Patient arrived in ED. am2 09:18 Virid[facility] Peters F[facility] 09:18 Jessica Hansen MD is Attending Physician. [facility] 09:35 Patient has correct armband on for positive identification. 09:36 Triage completed. 09:36 Arm band placed on right wrist. 11:40 Bel Vega RN is Primary Nurse. 11:40 No provider procedures requiring assistance completed. Patient did not have IV access ss during this emergency room visit. Administered Medications: 09:51 Not Given (Patient Refused): NS 0.9% 1000 ml IV at 1 bolus Per protocol; 1000 mL bolus [facility] 09:51 Not Given (Patient Refused): Zofran (Ondansetron) 4 mg IVP once; over 2 minutes [facility] 10:37 Drug: Ondansetron 4 mg Route: PO; 11:00 Follow up: Response: No adverse reaction; Nausea is decreased 19:42 Not Given (Patient Refused): TORadol - (ketorolac) 15 mg IVP once Outcome: 11:09 Discharge ordered by . [facility] 11:40 Discharged to home ambulatory. 11:40 Condition: good 11:40 Discharge instructions given to patient, Instructed on discharge instructions, follow up and referral plans. medication usage, Demonstrated understanding of instructions, follow-up care, medications, Prescriptions given X 1. 11:41 Patient left the ED. Signatures: Bel Vega RN RN Elisa Gregory am2 Viridiana Peters FNP FNP [facility]
--- NOTE | 2022-03-10 11:10 | EDPHYS ---
Physician Documentation [facility] Name: Jaimie Amanda Age: 61 yrs Sex: Female : 1960 Arrival Date: 03/10/2022 Time: 09:17 Bed IW2 Private MD: ED Physician Jessica Hansen HPI: 03/10 09:10 This 61 yrs old Female presents to ER via Unassigned with complaints of jh7 Nausea/Vomiting, RLQ abd pain. 09:10 The patient presents to the emergency department with nausea, vomiting, abdominal pain, jh7 of the right lower quadrant, described as dull, and does not radiate. Onset: The symptoms/episode began/occurred 2.5 day(s) ago. Associated signs and symptoms: Pertinent negatives: constipation, diarrhea, fever, GI bleeding, vaginal discharge. Patient reports nausea and vomiting for the past 2.5 days with mild right lower quadrant pain. She denies fever. The patient states "I would just like something to make me feel less nauseous".. Historical: - Allergies: 09:36 No Known Allergies; ss - PMHx: 09:36 Anxiety; Chronic Abdominal Pain; Hypertensive disorder; Hypothyroidism; low NA; NIDDM; ss - PSHx: 09:36 Thyroidectomy; ss - Immunization history:: Client reports receiving the 2nd dose of the Covid vaccine. - Social history:: Smoking status: Patient reports the use of cigarette tobacco products, smokes one-half pack cigarettes per day. ROS: 09:10 Constitutional: Negative for fever, chills, and weight loss, Eyes: Negative for injury, jh7 pain, redness, and discharge, Cardiovascular: Negative for chest pain, palpitations, and edema, Respiratory: Negative for shortness of breath, cough, wheezing, and pleuritic chest pain, Back: Negative for injury and pain, MS/Extremity: Negative for injury and deformity, Skin: Negative for injury, rash, and discoloration, Neuro: Negative for headache, weakness, numbness, tingling, and seizure. 09:10 Abdomen/GI: Positive for abdominal pain, nausea and vomiting, Negative for diarrhea, constipation, black/tarry stool, rectal bleeding. 09:10 All other systems are negative. Exam: 09:10 Constitutional: This is a well developed, well nourished patient who is awake, alert, jh7 and in no acute distress. Head/Face: Normocephalic, atraumatic. Neck: Trachea midline, no thyromegaly or masses palpated, and no cervical lymphadenopathy. Supple, full range of motion without nuchal rigidity, or vertebral point tenderness. No Meningismus. Cardiovascular: Regular rate and rhythm with a normal S1 and S2. No gallops, murmurs, or rubs. Normal PMI, no JVD. No pulse deficits. Respiratory: Lungs have equal breath sounds bilaterally, clear to auscultation and percussion. No rales, rhonchi or wheezes noted. No increased work of breathing, no retractions or nasal flaring. Back: No spinal tenderness. No costovertebral tenderness. Full range of motion. Skin: Warm, dry with normal turgor. Normal color with no rashes, no lesions, and no evidence of cellulitis. MS/ Extremity: Pulses equal, no cyanosis. Neurovascular intact. Full, normal range of motion. Neuro: Awake and alert, GCS 15, oriented to person, place, time, and situation. Motor strength 5/5 in all extremities. Sensory grossly intact. Normal gait. 09:10 Abdomen/GI: Inspection: abdomen appears normal, Bowel sounds: normal, Palpation: soft, mild abdominal tenderness, in the right lower quadrant. Vital Signs: 09:36 BP 142 / 87; Pulse 84; Resp 16; Temp 97.9(TE); Pulse Ox 95% on R/A; Weight 70.31 kg; ss Height 5 ft. 7 in. (170.18 cm); Pain 8/10; 09:36 Body Mass Index 24.28 (70.31 kg, 170.18 cm) ss MDM: 09:18 Patient medically screened. [facility] 10:50 Differential diagnosis: Nonspecific abd pain, appendicitis, viral gastroenteritis. Data [facility] reviewed: vital signs, nurses notes. Data interpreted: Pulse oximetry: is 95 %. Interpretation: normal. Counseling: I had a detailed discussion with the patient and/or guardian regarding: the historical points, exam findings, and any diagnostic results supporting the discharge/admit diagnosis, to return to the emergency department if symptoms worsen or persist or if there are any questions or concerns that arise at home. Response to treatment: the patient's symptoms have resolved after treatment, No nausea, passed p.o. challenge. ED course: Patient declined all lab work and IV fluids. She stated that she just wanted something for the nausea and would return if symptoms persist. Informed her that if she develops any new concerning symptoms, she may return to the ER for further eval. The patient understood the plan of care.. 03/10 09:31 Order name: IV Saline Lock [facility] 03/10 09:31 Order name: Urine Dipstick-Ancillary (obtain specimen) [facility] 03/10 09:52 Order name: PO challenge; Complete Time: 11:04 [facility] Administered Medications: 09:51 Not Given (Patient Refused): NS 0.9% 1000 ml IV at 1 bolus Per protocol; 1000 mL bolus [facility] 09:51 Not Given (Patient Refused): Zofran (Ondansetron) 4 mg IVP once; over 2 minutes [facility] 10:37 Drug: Ondansetron 4 mg Route: PO; ss 11:00 Follow up: Response: No adverse reaction; Nausea is decreased ss 19:42 Not Given (Patient Refused): TORadol - (ketorolac) 15 mg IVP once ss Disposition: 18:38 STAFF ATTESTATION STATEMENT: I was immediately available onsite in the emergency sd2 department for consultation in the care of this patient. I did not see or examine this patient. Jessica Hansen MD. Disposition Summary: 03/10/22 11:09 Discharge Ordered Location: Home [facility] Problem: an ongoing problem [facility] Symptoms: have improved [facility] Condition: Stable [facility] Diagnosis - Nausea with vomiting, unspecified [facility] Followup: [facility] - With: Private Physician - When: 2 - 3 days - Reason: Recheck today's complaints Discharge Instructions: - Discharge Summary Sheet [facility] - Nausea and Vomiting, Adult [facility] Forms: - Medication Reconciliation Form [facility] - Thank You Letter [facility] Prescriptions: - ondansetron 4 mg Oral tablet,disintegrating - place 1 tablet by TRANSLINGUAL route 4 times per day As needed; 20 tablet; [facility] Refills: 0, Product Selection Permitted Signatures: Dispatcher [employer] EDTN [place] RN RN Viridiana Apple, EMERGENCY SERVICES PROFESSIONAL EMERGENCY SERVICES PROFESSIONAL [facility] Jessica Hansen MD MD sd2 Corrections: (The following items were deleted from the chart) 09:51 09:31 Labs collected and sent ordered. [place] [id number]
[2022-03-10 12:11] VITALS: BP 142/87; TEMP 97.9; O2SAT 95
== END 2022-03-10 11:41 | disposition home or self-care (01) ==
LOC: ER 09:16
DX: R11.2 Nausea with vomiting, unspecified (principal); R10.31 Right lower quadrant pain; F17.210 Nicotine dependence, cigarettes, uncomplicated
CPT/HCPCS: 99283; Q0162

== ENCOUNTER 2022-03-12 07:28 | Emergency (ER) | payer OTHER ==
--- OUTSIDE RECORDS SUMMARY | 2022-03-12 07:41 | XMS REPORT | Continuity of Care Document ---
:1960 Author Organization [facility] t Address [address] [place] [address] Care Team Providers Name Role Phone Sharpless Primary Care Physician MATT SIMPSON Attending Clinician Unavailable MATT SIMPSON Attending Clinician Unavailable Doctor Unassigned, [place] Attending Clinician Unavailable WALLY KRISHNAMURTHY Attending Clinician Unavailable Natacha Brewster Attending Clinician Payers Payer Name Policy Type Policy Number Effective Date Expiration Date Sarina castelan [facility] [id number] 2017 00:00:00 PLUS Problems This patient has [...] ers OPHEN INGREDI 07-27 ity of 00:00: [place] [facility] Propensi Inactiv Reductas ty to e 2-28 e adverse 00:00: Inhibito reaction 00 rs to drug Nitrogly Propensi Active 2017-03 cerin ty to 1-08 adverse 00:00: reaction 00 to drug Social History Social Habit Start Date Stop Date Quantity Comments Source Alcohol intake 2016-05-01 2016-05-01 Current [facility] es 00:00:00 00:00:00 non-drinker of Medical nter alcohol (finding) Sex Ass[birth year] At [birth year] [facility] 00:00:00 00:00:00 [facility] Smoking Status Start Date Stop Date Source Current every day smoker 2016-05-01 00:00:00 [facility] Medications Ordered Filled Start Stop Current [...] [facility]jel[facility] OXcarbazepi 2017-0 Yes 600mg Q.[id number] Take [address] [address] ne 2-23 [id number] [facility] (TR[facility]) 10:23: 3D mouth 3 Med ical 600 MG 59 (three) Center tablet times daily. PARoxetine 2017-0 Yes 40mg QD Take [address] (PAXIL) 40 2-23 [facility] tablet 10:23: nightly. [address] 2017-0 Yes 600mg Q.12716196 Take [address] ne 2-23 [id number] [facility] (TRILEPTAL) 10:23: 3D mouth 3 Med ical 600 MG 59 (three) Center tablet times daily. PARoxetine 2017-0 Yes 40mg QD Take [address] (PAXIL) 40 2-23 [facility] tablet 10:23: nightly. [address] 2017-0 Yes 600mg Q.70118607 Take [address] ne 2-23 [id number] [facility] (TRILEPTAL) 10:23: 3D mouth 3 Med ical 600 MG 59 (three) Center tablet times daily. PARoxetine 2017-0 Yes 40mg QD Take [address] (PAXIL) 40 2-23 [facility] tablet 10:23: nightly. [address] 2017-0 Yes 600mg Q.49784695 Take [address] ne 2-23 [id number] [facility] (TRILEPTAL) 10:23: 3D mouth 3 Med ical 600 MG 59 (three) Center tablet times daily. PARoxetine 2017-0 Yes 40mg QD Take [address] (PAXIL) 40 2-23 [facility] tablet 10:23: nightly. [address] 2017-0 Yes 600mg Q.57087849 Take [address] ne 2-23 [id number] [facility] (TRILEPTAL) 10:23: 3D mouth 3 Med ical 600 MG 59 (three) Center tablet times daily. PARoxetine 2017-0 Yes 40mg QD Take [address] (PAXIL) 40 2-23 [facility] tablet 10:23: nightly. [address] 2017-0 Yes 600mg Q.06017660 Take [address] ne 2-23 [id number] [facility] (TRILEPTAL) 10:23: 3D mouth 3 Med ical 600 MG 59 (three) Center tablet times daily. PARoxetine 2017-0 Yes 40mg QD Take [address] (PAXIL) 40 2-23 [facility] tablet 10:23: nightly. [address] 2017-0 Yes 600mg Q.12966938 Take [address] ne 2-23 [id number] [facility] (TRILEPTAL) 10:23: 3D mouth 3 Med ical 600 MG 59 (three) Center tablet times daily. PARoxetine 2017-0 Yes 40mg QD Take [address] (PAXIL) 40 2-23 [facility] tablet 10:23: nightly. [address] 2017-0 Yes 600mg Q.15832834 Take [address] ne 2-23 [id number] [facility] (TRILEPTAL) 10:23: 3D mouth 3 Med ical 600 MG 59 (three) Center tablet times daily. PARoxetine 2017-0 Yes 40mg QD Take [address] (PAXIL) 40 2-23 [facility] tablet 10:23: nightly. [address] 2017-0 Yes 600mg Q.87594518 Take [address] ne 2-23 [id number] [facility] (TRILEPTAL) 10:23: 3D mouth 3 Med ical 600 MG 59 (three) Center tablet times daily. PARoxetine 2017-0 Yes 40mg QD Take [address] (PAXIL) 40 2-23 by [facility] tablet 10:23: nightly. [address] OXcarbazepi 2017-0 Yes 600mg Q.15159820 Take [address] ne 2-23 [id number] mg by [facility] (TRILEPTAL) 10:23: 3D mouth 3 Med ical 600 MG 59 (three) Center tablet times daily. PARoxetine 2017-0 Yes 40mg QD Take [address] (PAXIL) 40 2-23 by mouth [facility] tablet 10:23: nightly. [address] OXcarbazepi 2017-0 Yes 600mg Q.91573484 Take [address] ne 2-23 [id number] mg [facility] (TRILEPTAL) 10:23: 3D mouth 3 Med ical 600 MG 59 (three) Center tablet times daily. OXcarbazepi 2017-0 Yes 600mg Q.81768598 Take [address] ne 2-23 [id number] [facility] by [facility] (TRILEPTAL) 10:23: 3D mouth 3 Med ical 600 MG 59 (three) Center tablet times daily. PARoxetine 2017-0 Yes 40mg QD Take [address] (PAXIL) 40 2-23 by [facility] tablet 10:23: nightly. Medi [facility]jel[facility] Center OXcarbazepi 2017-0 Yes 600mg Q.47020367 Take [address] ne 2-23 [id number] mg by [facility] (TRILEPTAL) 10:23: 3D mouth 3 Med ical 600 MG 59 (three) Center tablet times daily. PARoxetine 2017-0 Yes 40mg QD Take [address] (PAXIL) 40 2-23 by mouth [facility] MG tablet 10:23: nightly. [facility] anjelica [facility] Center OXcarbazepi 2017-0 Yes 600mg Q.47278907 Take [address] ne 2-23 [id number] mg [facility] (TRILEPTAL) 10:23: 3D mouth 3 Med ical 600 MG 59 (three) Center tablet times daily. PARoxetine 2017-0 Yes 40mg QD Take [address] (PAXIL) 40 2-23 by [facility] tablet 10:23: nightly. [facility] anjelica [facility] Center PARoxetine 2017-0 Yes 40mg QD Take [address] (PAXIL) 40 2-23 by mouth [facility] tablet 10:23: nightly. [facility] anjelica 59 Center OXcarbazepi 2017-0 Yes 600mg Q.90082704 Take [address] ne 2-23 [id number] mg by [facility] (TRILEPTAL) 10:23: 3D mouth 3 Med ical 600 MG 59 (three) Center tablet times daily. PARoxetine 2017-0 Yes 40mg QD Take [address] (PAXIL) 40 2-23 by [facility] tablet 10:23: nightly. Medi [facility] OXcarbazepi 2017-0 Yes 600mg Q.94506367 Take [address] ne 2-23 [id number] mg by [facility] (TRILEPTAL) 10:23: 3D mouth 3 Med ical 600 MG 59 (three) Center tablet times daily. PARoxetine 2017-0 Yes 40mg QD Take [address] (PAXIL) 40 2-23 by [facility] tablet 10:23: nightly. [facility] [address] OXcarbazepi 2017-0 Yes 600mg Q.35508566 Take [address] ne 2-23 [id number] mg by [facility] (TRILEPTAL) 10:23: 3D mouth 3 Med ical 600 MG 59 (three) Center tablet times daily. PARoxetine 2017-0 Yes 40mg QD Take [address] (PAXIL) 40 2-23 by mouth [facility] tablet 10:23: nightly. [facility] [address] OXcarbazepi 2017-0 Yes 600mg Q.50760831 Take [address] ne 2-23 [id number] mg [facility] (TRILEPTAL) 10:23: 3D mouth 3 Med ical 600 MG 59 (three) Center tablet times daily. PARoxetine 2017-0 Yes 40mg QD Take [address] (PAXIL) 40 2-23 by mouth [facility] tablet 10:23: nightly. [facility] [address] OXcarbazepi 2017-0 Yes 600mg Q.43507742 Take [address] ne 2-23 [id number] mg [facility] (TRILEPTAL) 10:23: 3D mouth [...] Goal Plan of Care Note [code = 91427-3] Goal Plan of Care Note [code = 80357-6] Goal Plan of Care Note [code = 00676-2] Goal Plan of Care Note [code = 25251-4] Goal Plan of Care Note [code = 21460-2] Goal Plan of Care Note [code = 70983-6] Goal Plan of Care Note [code = 89942-5] Goal Plan of Care Note [code = 10343-2] Goal Plan of Care Note [code = 09107-5] Goal Plan of Care Note [code = 65786-2] Goal Plan of Care Note [code = 99999-7] Goal Plan of Care Note [code = 43934-2] Goal Plan of Care Note [code = 86536-0] Goal Plan of Care Note [code = 77595-6] Goal Plan of Care Note [code = 22767-5] Goal Plan of Care Note [code = 21652-5] Goal Plan of Care Note [code = 37889-0] Goal Plan of Care Note [code = 81309-8] Goal Plan of Care Note [code = 50648-5] Goal Plan of Care Note [code = 99682-3] Goal Plan of Care Note [code = 12995-4] Goal Plan of Care Note [code = 08781-2] Goal Plan of Care Note [code = 89441-3] Goal Plan of Care Note [code = 81308-5] Goal Plan of Care Note [code = 20308-1] Goal Plan of Care Note [code = 95606-1] Goal Plan of Care Note [code = 93038-3] Goal Plan of Care Note [code = 41191-9] Goal Plan of Care Note [code = 64064-7] Goal Plan of Care Note [code = 72047-3] Goal Plan of Care Note [code = 32728-4] Goal Plan of Care Note [code = 54246-6] Goal Plan of Care Note [code = 68240-1] Goal Plan of Care Note [code = 41887-6] Goal Plan of Care Note [code = 33259-2] Goal Plan of Care Note [code = 37219-0] Goal Plan of Care Note [code = 85683-8] Goal Plan of Care Note [code = 22641-2] Goal Plan of Care Note [code = 19433-7] Goal Plan of Care Note [code = 47092-8] Goal Plan of Care Note [code = 24767-0] Goal Plan of Care Note [code = 05077-4] Goal Plan of Care Note [code = 02759-0] Goal Plan of Care Note [code = 60166-3] Goal Plan of Care Note [code = 69843-9] Goal Plan of Care Note [code = 89203-5] Goal Plan of Care Note [code = 21864-4] Goal Plan of Care Note [code = 28305-1] Goal Plan of Care Note [code = 13213-9] Goal Plan of Care Note [code = 54343-2] Goal Plan of Care Note [code = 55443-4] Goal Plan of Care Note [code = 30308-6] Goal Plan of Care Note [code = 75022-3] Goal Plan of Care Note [code = 07824-8] Goal Plan of Care Note [code = 61240-2] Goal Plan of Care Note [code = 37254-4] Goal Plan of Care Note [code = 91257-0] Goal Plan of Care Note [code = 24557-4] Goal Plan of Care Note [code = 05066-2] Goal Plan of Care Note [code = 14923-3] Goal Plan of Care Note [code = 10514-3] Goal Plan of Care Note [code = 92533-2] Goal Plan of Care Note [code = 60615-1] Goal Plan of Care Note [code = 50120-3] Goal Plan of Care Note [code = 33117-7] Goal Plan of Care Note [code = 36183-4] Goal Plan of Care Note [code = 41102-9] Goal Plan of Care Note [code = 46189-3] Goal Plan of Care Note [code = 80620-9] Goal Plan of Care Note [code = 89657-8] Goal Plan of Care Note [code = 42817-1] Goal Plan of Care Note [code = 33058-8] Goal Plan of Care Note [code = 45436-6] Goal Plan of Care Note [code = 84913-4] Goal Plan of Care Note [code = 71722-1] Goal Plan of Care Note [code = 23808-5] Goal Plan of Care Note [code = 57916-4] Goal Plan of Care Note [code = 47572-8] Goal Plan of Care Note [code = 32125-7] Goal Plan of Care Note [code = 97442-6] Goal Plan of Care Note [code = 75629-4] Goal Plan of Care Note [code = 72182-2] Goal Plan of Care Note [code = 16546-0] Goal Plan of Care Note [code = 78502-8] Goal Plan of Care Note [code = 90018-7] Goal Plan of Care Note [code = 44461-1] Goal Plan of Care Note [code = 85153-3] Goal Plan of Care Note [code = 98913-8] Goal Plan of Care Note [code = 43657-1] Goal Plan of Care Note [code = 91814-0] Goal Plan of Care Note [code = 69423-1] Goal Plan of Care Note [code = 02415-1] Goal Plan of Care Note [code = 88455-7] Goal Plan of Care Note [code = 34269-5] Goal Plan of Care Note [code = 85434-5] Goal Plan of Care Note [code = 81255-8] Goal Plan of Care Note [code = 65845-8] Goal Plan of Care Note [code = 58876-2] Goal Plan of Care Note [code = 15491-5] Goal Plan of Care Note [code = 63667-8] Goal Plan of Care Note [code = 23979-7] Goal Plan of Care Note [code = 80673-5] Goal Plan of Care Note [code = 48560-9] Goal Plan of Care Note [code = 74639-6] Goal Plan of Care Note [code = 36451-9] Goal Plan of Care Note [code = 16611-9] Goal Plan of Care Note [code = 47852-9] Goal Plan of Care Note [code = 14089-8] Goal Plan of Care Note [code = 97352-3] Goal Plan of Care Note [code = 84735-1] Goal Plan of Care Note [code = 55698-5] Goal Plan of Care Note [code = 13310-2] Goal Plan of Care Note [code = 75804-0] Goal Plan of Care Note [code = 64211-2] Goal Plan of Care Note [code = 08319-8] Goal Plan of Care Note [code = 43339-4] Goal Plan of Care Note [code = 99854-6] Goal Plan of Care Note [code = 92803-4] Goal Plan of Care Note [code = 57632-2] Goal Plan of Care Note [code = 29814-4] Goal Plan of Care Note [code = 39721-2] Goal Plan of Care Note [code = 31811-2] Goal Plan of Care Note [code = 77492-3] Goal Plan of Care Note [code = 43261-5] Goal Plan of Care Note [code = 37760-3] Goal Plan of Care Note [code = 22933-6] Goal Plan of Care Note [code = 33110-6] Goal Plan of Care Note [code = 10195-5] Goal Plan of Care Note [code = 10885-8] Goal Plan of Care Note [code = 32485-5] Goal Plan of Care Note [code = 01305-8] Goal Plan of Care Note [code = 36709-4] Goal Plan of Care Note [code = 86064-4] Goal Plan of Care Note [code = 16034-3] Goal Plan of Care Note [code = 44520-5] Goal Plan of Care Note [code = 01287-9] Goal Plan of Care Note [code = 81707-6] Goal Plan of Care Note [code = 37740-6] Goal Plan of Care Note [code = 39549-1] Goal Plan of Care Note [code = 07107-8] Goal Plan of Care Note [code = 20999-1] Goal Plan of Care Note [code = 39798-9] Goal Plan of Care Note [code = 62014-0] Goal Plan of Care Note [code = 17194-6] Goal Plan of Care Note [code = 77650-5] Goal Plan of Care Note [code = 36706-8] Goal Plan of Care Note [code = 00823-9] Goal Plan of Care Note [code = 52337-2] Goal Plan of Care Note [code = 95180-9] Goal Plan of Care Note [code = 95866-1] Goal Plan of Care Note [code = 71224-6] Goal Plan of Care Note [code = 75504-0] Goal Plan of Care Note [code = 37863-3] Goal Plan of Care Note [code = 16500-6] Goal Plan of Care Note [code = 31503-3] Goal Plan of Care Note [code = 00944-8] Goal Plan of Care Note [code = 13827-1] Goal Plan of Care Note [code = 52491-0] Goal Plan of Care Note [code = 53026-1] Goal Plan of Care Note [code = 53893-5] Goal Plan of Care Note [code = 05680-4] Goal Plan of Care Note [code = 80425-5] Goal Plan of Care Note [code = 79211-6] Goal Plan of Care Note [code = 85202-0] Goal Plan of Care Note [code = 72320-8] Goal Plan of Care Note [code = 43116-6] Goal Plan of Care Note [code = 16847-3] Goal Plan of Care Note [code = 06123-7] Goal Plan of Care Note [code = 28851-4] Goal Plan of Care Note [code = 72034-0] Goal Plan of Care Note [code = 93391-3] Goal Plan of Care Note [code = 13396-2] Goal Plan of Care Note [code = 35985-5] Goal Plan of Care Note [code = 91246-5] Goal Plan of Care Note [code = 75188-2] Goal Plan of Care Note [code = 61150-9] Goal Plan of Care Note [code = 31163-2] Goal Plan of Care Note [code = 83736-0] Goal Plan of Care Note [code = 36067-2] Goal Plan of Care Note [code = 41772-1] Goal Plan of Care Note [code = 73709-1] Goal Plan of Care Note [code = 43100-8] Goal Plan of Care Note [code = 68972-4] Goal Plan of Care Note [code = 50692-2] Goal Plan of Care Note [code = 12930-0] Goal Plan of Care Note [code = 06145-3] Goal Plan of Care Note [code = 09379-3] Goal Plan of Care Note [code = 30355-3] Goal Plan of Care Note [code = 98559-0] Goal Plan of Care Note [code = 88669-5] Goal Plan of Care Note [code = 79820-0] Goal Plan of Care Note [code = 68410-5] Goal Plan of Care Note [code = 41726-3] Goal Plan of Care Note [code = 85330-0] Goal Plan of Care Note [code = 42729-7] Goal Plan of Care Note [code = 68723-8] Goal Plan of Care Note [code = 25137-4] Goal Plan of Care Note [code = 97719-7] Goal Plan of Care Note [code = 17717-1] Goal Plan of Care Note [code = 77671-5] Goal Plan of Care Note [code = 46775-6] Goal Plan of Care Note [code = 49068-7] Goal Plan of Care Note [code = 93357-9] Goal Plan of Care Note [code = 95067-6] Goal Plan of Care Note [code = 17898-1] Goal Plan of Care Note [code = 63469-3] Goal Plan of Care Note [code = 40292-1] Goal Plan of Care Note [code = 80588-7] Encounters Start End Encounter Admission Attending Care Care Encounter Source Date/Time Date/Time Type Type Clinicians Facility Department ID 2021-06-01 Outpatient [facility] [id number] [place] 01:36:29 [id number] [facility] 2022-02-11 2022-02-11 Outpatient SFA SFA [id number] 022 Cristian 09:04:48 09:04:48 1206 F Jerman 2022-02-10 2022-02-10 Outpatient SFA SFA [id number] 022 Cristian 09:29:34 09:29:34 1205 F Jerman 2022-02-10 2022-02-10 Outpatient 2g9v71p9- [id number] 0n15k4-7 00:00:00 00:00:00 Visit 4089-4cab 089-4cab-9 -0uj6-b0f bf5-t9c081 705bpsk99 bafa93 2022-01-10 2022-01-10 Outpatient SFA SFA 90945-3 022 Cristian 09:16:14 09:16:14 1104 F Jerman 2022-01-10 2022-01-10 Outpatient g3fomyx0- [id number] f2 accaa6-a 00:00:00 00:00:00 Visit aca9-4c83 ca9-4c83-a -x0bf-nj8 7eb-bc13f3 2s9n128s1 f032f9 2021-12-19 2021-12-19 Outpatient SFA SFA 90599-1 022 Cristian 16:11:31 16:11:31 1013 F Jerman 2021-12-19 2021-12-19 Outpatient [id number] 466cae-[id number] 00:00:00 00:00:00 Visit o580-676x 770-441f-a -adae-62b amelia-62bace qdqkw99al fd81af 2021-09-17 2021-09-17 Outpatient qvh0mgbx- [id number] aa d4omno-0 00:00:00 00:00:00 Visit 935a-4f50 35a-4f50-b -o83j-r1v 77d-c2ba85 q186175v4 1264a6 2020-08-03 2020-08-03 Outpatient MATT VÁSQUEZ [facility] [id number] [facility] 10:00:00 10:00:00 MATT SIMPSON [facility] 2020-07-25 2020-07-25 Orders Doctor ABE [id number] 00:00:00 00:00:00 Only Unassigned, BK 350.1.13.10 [place]dal [facility] 4.2.7.2.686 [id number] 2019-09-26 2019-09-26 Outpatient Bertin RAGHU [facility] [id number] [facility] 16:00:00 16:00:00 WALLY [facility] 2018-10-21 2018-10-21 [facility] [id number] 00:00:00 00:00:00 Natacha Nguyen 350.1.13.10 [place] 4.2.7.2.686 [place] [id number] [address] Results Test Description Test Time Test Comments Results Result Comments Source TSH, THIRD GENERATION 2021-06-27 05:15:49 Test Item Value Reference Range Interpretation Comme nts TSH, THIRD GENERATION (test code = 2821) 2.080 UIU/ML 0.400-4.100 HEMOGLOBIN [id number] 03:46:00 Test Item Value Reference Range Interpretation Comments HEMOGLOBIN A1c (test 6.6 % 4.2-5.6 H [employer]ES code = 03774) ASSOCIATION IDELINES FOR HGB A1C: PREDIABETES/INC REASED [...] INDICATED, ALL TESTING PER FORMED ATCLINICAL PATH [facility]. [address] [address] 2219 LABORATORY DIRE CTOR: DIANA RUSS M.D. CLIA NUMBER [id number] [place]. [id number] LIPID [id number] 02:59:52 Test Item Value Reference Range Interpretation [...] MOREINFORMATION , SEE CLIENT ANNOUNCE MENT AT [email or web address] RISK RATIO LDL/HDL 4.02 RATIO <3.22 H (test code = 2238) [id number] 00:00:00 Test Item Value Reference Range Interpretation Comments TSH, THIRD GENERATION (test code 2.080 UIU/ML = 2821) [id number] 00:00:00 Test Item Value Reference Range Interpretation Comments TSH, THIRD GENERATION (test code 2.080 UIU/ML = 2821) [id number] 00:00:00 Test Item Value Reference Range Interpretation Comments TSH, THIRD GENERATION (test code 2.080 UIU/ML = 2821) LIPID [id number] 00:00:00 Test Item Value Reference Range Interpretation Comments CHOLESTEROL (test code = 2210) 292 MG/DL TRIGLYCERIDES (test code = 2232) 184 MG/DL HDL CHOLESTEROL (test code = 2220) 51 MG/DL CALC LDL CHOL (test code = 2237) 205 MG/DL RISK RATIO LDL/HDL (test code = 4.02 RATIO 2238) LIPID [id number] 00:00:00 Test Item Value Reference Range Interpretation Comments CHOLESTEROL (test code = 2210) 292 MG/DL TRIGLYCERIDES (test code = 2232) 184 MG/DL HDL CHOLESTEROL (test code = 2220) 51 MG/DL CALC LDL CHOL (test code = 2237) 205 MG/DL RISK RATIO LDL/HDL (test code = 4.02 RATIO 2238) HEMOGLOBIN [id number] 00:00:00 Test Item Value Reference Range Interpretation Comments HEMOGLOBIN A1c (test code = 64128) 6.6 % HEMOGLOBIN [id number] 00:00:00 Test Item Value Reference Range Interpretation Comments HEMOGLOBIN A1c (test code = 29844) 6.6 % HEMOGLOBIN [id number] 00:00:00 Test Item Value Reference Range Interpretation Comments HEMOGLOBIN A1c (test code = 82719) 6.6 % [id number] 00:00:00 Test Item Value Reference Range Interpretation Comments TSH, THIRD GENERATION (test code 2.080 UIU/ML = 2821) [id number] 00:00:00 Test Item Value Reference Range Interpretation Comments TSH, THIRD GENERATION (test code 2.080 UIU/ML = 2821) [id number] 00:00:00 Test Item Value Reference Range Interpretation Comments TSH, THIRD GENERATION (test code 2.080 UIU/ML = 2821) LIPID [id number] 00:00:00 Test Item Value Reference Range Interpretation Comments CHOLESTEROL (test code = 2210) 292 MG/DL TRIGLYCERIDES (test code = 2232) 184 MG/DL HDL CHOLESTEROL (test code = 2220) 51 MG/DL CALC LDL CHOL (test code = 2237) 205 MG/DL RISK RATIO LDL/HDL (test code = 4.02 RATIO 2238) LIPID [id number] 00:00:00 Test Item Value Reference Range Interpretation Comments CHOLESTEROL (test code = 2210) 292 MG/DL TRIGLYCERIDES (test code = 2232) 184 MG/DL HDL CHOLESTEROL (test code = 2220) 51 MG/DL CALC LDL CHOL (test code = 2237) 205 MG/DL RISK RATIO LDL/HDL (test code = 4.02 RATIO 2238) HEMOGLOBIN [id number] 00:00:00 Test Item Value Reference Range Interpretation Comments HEMOGLOBIN A1c (test code = 43443) 6.6 % HEMOGLOBIN [id number] 00:00:00 Test Item Value Reference Range Interpretation Comments HEMOGLOBIN A1c (test code = 48284) 6.6 % HEMOGLOBIN [id number] 00:00:00 Test Item Value Reference Range Interpretation Comments HEMOGLOBIN A1c (test code = 53365) 6.6 % [id number] 00:00:00 Test Item Value Reference Range Interpretation Comments TSH, THIRD GENERATION (test code 2.080 UIU/ML = 2821) [id number] 00:00:00 Test Item Value Reference Range Interpretation Comments TSH, THIRD GENERATION (test code 2.080 UIU/ML = 2821) LIPID [id number] 00:00:00 Test Item Value Reference Range Interpretation Comments CHOLESTEROL (test code = 2210) 292 MG/DL TRIGLYCERIDES (test code = 2232) 184 MG/DL HDL CHOLESTEROL (test code = 2220) 51 MG/DL CALC LDL CHOL (test code = 2237) 205 MG/DL RISK RATIO LDL/HDL (test code = 4.02 RATIO 2238) HEMOGLOBIN [id number] 00:00:00 Test Item Value Reference Range Interpretation Comments HEMOGLOBIN A1c (test code = 15126) 6.6 % HEMOGLOBIN [id number] 00:00:00 Test Item Value Reference Range Interpretation Comments HEMOGLOBIN A1c (test code = 10283) 6.6 % [id number] 00:00:00 Test Item Value Reference Range Interpretation Comments TSH, THIRD GENERATION (test code 2.080 UIU/ML = 2821) [id number] 00:00:00 Test Item Value Reference Range Interpretation Comments TSH, THIRD GENERATION (test code 2.080 UIU/ML = 2821) [id number] 00:00:00 Test Item Value Reference Range Interpretation Comments TSH, THIRD GENERATION (test code 2.080 UIU/ML = 2821) LIPID [id number] 00:00:00 Test Item Value Reference Range Interpretation Comments CHOLESTEROL (test code = 2210) 292 MG/DL TRIGLYCERIDES (test code = 2232) 184 MG/DL HDL CHOLESTEROL (test code = 2220) 51 MG/DL CALC LDL CHOL (test code = 2237) 205 MG/DL RISK RATIO LDL/HDL (test code = 4.02 RATIO 2238) LIPID [id number] 00:00:00 Test Item Value Reference Range Interpretation Comments CHOLESTEROL (test code = 2210) 292 MG/DL TRIGLYCERIDES (test code = 2232) 184 MG/DL HDL CHOLESTEROL (test code = 2220) 51 MG/DL CALC LDL CHOL (test code = 2237) 205 MG/DL RISK RATIO LDL/HDL (test code = 4.02 RATIO 2238) HEMOGLOBIN [id number] 00:00:00 Test Item Value Reference Range Interpretation Comments HEMOGLOBIN A1c (test code = 38424) 6.6 % HEMOGLOBIN [id number] 00:00:00 Test Item Value Reference Range Interpretation Comments HEMOGLOBIN A1c (test code = 10470) 6.6 % HEMOGLOBIN [id number] 00:00:00 Test Item Value Reference Range Interpretation Comments HEMOGLOBIN A1c (test code = 00260) 6.6 % HEMOGLOBIN [id number] 00:00:00 Test Item Value Reference Range Interpretation Comments HEMOGLOBIN A1c (test code = 46024) 6.8 % HEMOGLOBIN [id number] 00:00:00 Test Item Value Reference Range Interpretation Comments HEMOGLOBIN A1c (test code = 09981) 6.8 % HEMOGLOBIN [id number] 00:00:00 Test Item Value Reference Range Interpretation Comments HEMOGLOBIN A1c (test code = 20189) 6.8 % LIPID [id number] 00:00:00 Test Item Value Reference Range Interpretation Comments CHOLESTEROL (test code = 2210) 303 MG/DL TRIGLYCERIDES (test code = 2232) 191 MG/DL HDL CHOLESTEROL (test code = 2220) 61 MG/DL CALC LDL CHOL (test code = 2237) 205 MG/DL RISK RATIO LDL/HDL (test code = 3.36 RATIO 2238) LIPID [id number] 00:00:00 Test Item Value Reference Range Interpretation Comments CHOLESTEROL (test code = 2210) 303 MG/DL TRIGLYCERIDES (test code = 2232) 191 MG/DL HDL CHOLESTEROL (test code = 2220) 61 MG/DL CALC LDL CHOL (test code = 2237) 205 MG/DL RISK RATIO LDL/HDL (test code = 3.36 RATIO 2238) [id number] 00:00:00 Test Item Value Reference Range Interpretation Comments TSH, THIRD GENERATION (test code 0.769 UIU/ML = 2821) [id number] 00:00:00 Test Item Value Reference Range Interpretation Comments TSH, THIRD GENERATION (test code 0.769 UIU/ML = 2821) [id number] 00:00:00 Test Item Value Reference Range Interpretation Comments TSH, THIRD GENERATION (test code 0.769 UIU/ML = 2821) COMPREHENSIVE METABOLIC [id number] 00:00:00 Test Item Value Reference Range Interpretation Comments GLUCOSE (test code = 2217) 131 MG/DL BUN (test code = 2208) 13 MG/DL CREATININE (test code = 2214) 0.65 MG/DL eGFR AMER. (test code 113 ML/MIN/1.73 = 58155) eGFR NON- AMER. (test 97 ML/MIN/1.73 code = 79537) CALC BUN/CREAT (test code = 20 RATIO [...] code = 2219) 23 U/L COMPREHENSIVE METABOLIC [id number] 00:00:00 Test Item Value Reference Range Interpretation Comments GLUCOSE (test code = 2217) 131 MG/DL BUN (test code = 2208) 13 MG/DL CREATININE (test code = 2214) 0.65 MG/DL eGFR AMER. (test code 113 ML/MIN/1.73 = 33990) eGFR NON- AMER. (test 97 ML/MIN/1.73 code = 88527) CALC BUN/CREAT (test code = 20 RATIO [...] (test code = 2219) 23 U/L HEMOGLOBIN [id number] 00:00:00 Test Item Value Reference Range Interpretation Comments HEMOGLOBIN A1c (test code = 87234) 6.8 % HEMOGLOBIN [id number] 00:00:00 Test Item Value Reference Range Interpretation Comments HEMOGLOBIN A1c (test code = 67344) 6.8 % HEMOGLOBIN [id number] 00:00:00 Test Item Value Reference Range Interpretation Comments HEMOGLOBIN A1c (test code = 92616) 6.8 % LIPID [id number] 00:00:00 Test Item Value Reference Range Interpretation Comments CHOLESTEROL (test code = 2210) 303 MG/DL TRIGLYCERIDES (test code = 2232) 191 MG/DL HDL CHOLESTEROL (test code = 2220) 61 MG/DL CALC LDL CHOL (test code = 2237) 205 MG/DL RISK RATIO LDL/HDL (test code = 3.36 RATIO 2238) LIPID [id number] 00:00:00 Test Item Value Reference Range Interpretation Comments CHOLESTEROL (test code = 2210) 303 MG/DL TRIGLYCERIDES (test code = 2232) 191 MG/DL HDL CHOLESTEROL (test code = 2220) 61 MG/DL CALC LDL CHOL (test code = 2237) 205 MG/DL RISK RATIO LDL/HDL (test code = 3.36 RATIO 2238) [id number] 00:00:00 Test Item Value Reference Range Interpretation Comments TSH, THIRD GENERATION (test code 0.769 UIU/ML = 2821) [id number] 00:00:00 Test Item Value Reference Range Interpretation Comments TSH, THIRD GENERATION (test code 0.769 UIU/ML = 2821) [id number] 00:00:00 Test Item Value Reference Range Interpretation Comments TSH, THIRD GENERATION (test code 0.769 UIU/ML = 2821) COMPREHENSIVE METABOLIC [id number] 00:00:00 Test Item Value Reference Range Interpretation Comments GLUCOSE (test code = 2217) 131 MG/DL BUN (test code = 2208) 13 MG/DL CREATININE (test code = 2214) 0.65 MG/DL eGFR AMER. (test code 113 ML/MIN/1.73 = 80121) eGFR NON- AMER. (test 97 ML/MIN/1.73 code = 67678) CALC BUN/CREAT (test code = 20 RATIO [...] code = 2219) 23 U/L COMPREHENSIVE METABOLIC [id number] 00:00:00 Test Item Value Reference Range Interpretation Comments GLUCOSE (test code = 2217) 131 MG/DL BUN (test code = 2208) 13 MG/DL CREATININE (test code = 2214) 0.65 MG/DL eGFR AMER. (test code 113 ML/MIN/1.73 = 34812) eGFR NON- AMER. (test 97 ML/MIN/1.73 code = 14542) CALC BUN/CREAT (test code = 20 RATIO [...] (test code = 2219) 23 U/L HEMOGLOBIN [id number] 00:00:00 Test Item Value Reference Range Interpretation Comments HEMOGLOBIN A1c (test code = 71013) 6.8 % HEMOGLOBIN [id number] 00:00:00 Test Item Value Reference Range Interpretation Comments HEMOGLOBIN A1c (test code = 77986) 6.8 % LIPID [id number] 00:00:00 Test Item Value Reference Range Interpretation Comments CHOLESTEROL (test code = 2210) 303 MG/DL TRIGLYCERIDES (test code = 2232) 191 MG/DL HDL CHOLESTEROL (test code = 2220) 61 MG/DL CALC LDL CHOL (test code = 2237) 205 MG/DL RISK RATIO LDL/HDL (test code = 3.36 RATIO 2238) [id number] 00:00:00 Test Item Value Reference Range Interpretation Comments TSH, THIRD GENERATION (test code 0.769 UIU/ML = 2821) [id number] 00:00:00 Test Item Value Reference Range Interpretation Comments TSH, THIRD GENERATION (test code 0.769 UIU/ML = 2821) COMPREHENSIVE METABOLIC [id number] 00:00:00 Test Item Value Reference Range Interpretation Comments GLUCOSE (test code = 2217) 131 MG/DL BUN (test code = 2208) 13 MG/DL CREATININE (test code = 2214) 0.65 MG/DL eGFR AMER. (test code 113 ML/MIN/1.73 = 34769) eGFR NON- AMER. (test 97 ML/MIN/1.73 code = 74114) CALC BUN/CREAT (test code = 20 RATIO [...] (test code = 2219) 23 U/L HEMOGLOBIN [id number] 00:00:00 Test Item Value Reference Range Interpretation Comments HEMOGLOBIN A1c (test code = 96383) 6.8 % HEMOGLOBIN [id number] 00:00:00 Test Item Value Reference Range Interpretation Comments HEMOGLOBIN A1c (test code = 53984) 6.8 % HEMOGLOBIN [id number] 00:00:00 Test Item Value Reference Range Interpretation Comments HEMOGLOBIN A1c (test code = 25518) 6.8 % LIPID [id number] 00:00:00 Test Item Value Reference Range Interpretation Comments CHOLESTEROL (test code = 2210) 303 MG/DL TRIGLYCERIDES (test code = 2232) 191 MG/DL HDL CHOLESTEROL (test code = 2220) 61 MG/DL CALC LDL CHOL (test code = 2237) 205 MG/DL RISK RATIO LDL/HDL (test code = 3.36 RATIO 2238) LIPID [id number] 00:00:00 Test Item Value Reference Range Interpretation Comments CHOLESTEROL (test code = 2210) 303 MG/DL TRIGLYCERIDES (test code = 2232) 191 MG/DL HDL CHOLESTEROL (test code = 2220) 61 MG/DL CALC LDL CHOL (test code = 2237) 205 MG/DL RISK RATIO LDL/HDL (test code = 3.36 RATIO 2238) [id number] 00:00:00 Test Item Value Reference Range Interpretation Comments TSH, THIRD GENERATION (test code 0.769 UIU/ML = 2821) [id number] 00:00:00 Test Item Value Reference Range Interpretation Comments TSH, THIRD GENERATION (test code 0.769 UIU/ML = 2821) [id number] 00:00:00 Test Item Value Reference Range Interpretation Comments TSH, THIRD GENERATION (test code 0.769 UIU/ML = 2821) COMPREHENSIVE METABOLIC [id number] 00:00:00 Test Item Value Reference Range Interpretation Comments GLUCOSE (test code = 2217) 131 MG/DL BUN (test code = 2208) 13 MG/DL CREATININE (test code = 2214) 0.65 MG/DL eGFR AMER. (test code 113 ML/MIN/1.73 = 73895) eGFR NON- AMER. (test 97 ML/MIN/1.73 code = 47236) CALC BUN/CREAT (test code = 20 RATIO [...] code = 2219) 23 U/L COMPREHENSIVE METABOLIC [id number] 00:00:00 Test Item Value Reference Range Interpretation Comments GLUCOSE (test code = 2217) 131 MG/DL BUN (test code = 2208) 13 MG/DL CREATININE (test code = 2214) 0.65 MG/DL eGFR AMER. (test code 113 ML/MIN/1.73 = 98240) eGFR NON- AMER. (test 97 ML/MIN/1.73 code = 05774) CALC BUN/CREAT (test code = 20 RATIO [...] (test code = 2219) 23 U/L HEMOGLOBIN [id number] 00:00:00 Test Item Value Reference Range Interpretation Comments HEMOGLOBIN A1c (test code = 72912) 6.6 % HEMOGLOBIN [id number] 00:00:00 Test Item Value Reference Range Interpretation Comments HEMOGLOBIN A1c (test code = 79586) 6.6 % HEMOGLOBIN [id number] 00:00:00 Test Item Value Reference Range Interpretation Comments HEMOGLOBIN A1c (test code = 15949) 6.6 % LIPID [id number] 00:00:00 Test Item Value Reference Range Interpretation Comments CHOLESTEROL (test code = 2210) 261 MG/DL TRIGLYCERIDES (test code = 2232) 159 MG/DL HDL CHOLESTEROL (test code = 2220) 82 MG/DL CALC LDL CHOL (test code = 2237) 150 MG/DL RISK RATIO LDL/HDL (test code = 1.83 RATIO 2238) LIPID [id number] 00:00:00 Test Item Value Reference Range Interpretation Comments CHOLESTEROL (test code = 2210) 261 MG/DL TRIGLYCERIDES (test code = 2232) 159 MG/DL HDL CHOLESTEROL (test code = 2220) 82 MG/DL CALC LDL CHOL (test code = 2237) 150 MG/DL RISK RATIO LDL/HDL (test code = 1.83 RATIO 2238) COMPREHENSIVE METABOLIC [id number] 00:00:00 Test Item Value Reference Range Interpretation Comments GLUCOSE (test code = 2217) 144 MG/DL BUN (test code = 2208) 15 MG/DL CREATININE (test code = 2214) 0.85 MG/DL eGFR AMER. (test code 87 ML/MIN/1.73 = 80206) eGFR NON- AMER. (test 75 ML/MIN/1.73 code = 44897) CALC BUN/CREAT (test code = 18 RATIO [...] code = 2219) 50 U/L COMPREHENSIVE METABOLIC [id number] 00:00:00 Test Item Value Reference Range Interpretation Comments GLUCOSE (test code = 2217) 144 MG/DL BUN (test code = 2208) 15 MG/DL CREATININE (test code = 2214) 0.85 MG/DL eGFR AMER. (test code 87 ML/MIN/1.73 = 09813) eGFR NON- AMER. (test 75 ML/MIN/1.73 code = 72614) CALC BUN/CREAT (test code = 18 RATIO [...] THYROX. BIND. CAPAC. (test code 1.1 = 13649) T4 (THYROXINE) (test code = 4.3 UG/DL 2819) CORRECTED T4 (FTI) (test code = 3.9 UG/DL 2820) TSH, THIRD GENERATION (test 18.900 UIU/ML code = 2821) THYROID II PROFILE (T3U, T4, T7, TSH)[id number] 00:00:00 Test Item Value Reference Range Interpretation Comments T-UPTAKE (test code = 2817) 30.2 % THYROX. BIND. CAPAC. (test code 1.1 = 17982) T4 (THYROXINE) (test code = 4.3 UG/DL 2819) CORRECTED T4 (FTI) (test code = 3.9 UG/DL 2820) TSH, THIRD GENERATION (test 18.900 UIU/ML code = 2821) HEMOGLOBIN [id number] 00:00:00 Test Item Value Reference Range Interpretation Comments HEMOGLOBIN A1c (test code = 04155) 6.6 % HEMOGLOBIN [id number] 00:00:00 Test Item Value Reference Range Interpretation Comments HEMOGLOBIN A1c (test code = 34814) 6.6 % HEMOGLOBIN [id number] 00:00:00 Test Item Value Reference Range Interpretation Comments HEMOGLOBIN A1c (test code = 41861) 6.6 % LIPID [id number] 00:00:00 Test Item Value Reference Range Interpretation Comments CHOLESTEROL (test code = 2210) 261 MG/DL TRIGLYCERIDES (test code = 2232) 159 MG/DL HDL CHOLESTEROL (test code = 2220) 82 MG/DL CALC LDL CHOL (test code = 2237) 150 MG/DL RISK RATIO LDL/HDL (test code = 1.83 RATIO 2238) LIPID [id number] 00:00:00 Test Item Value Reference Range Interpretation Comments CHOLESTEROL (test code = 2210) 261 MG/DL TRIGLYCERIDES (test code = 2232) 159 MG/DL HDL CHOLESTEROL (test code = 2220) 82 MG/DL CALC LDL CHOL (test code = 2237) 150 MG/DL RISK RATIO LDL/HDL (test code = 1.83 RATIO 2238) COMPREHENSIVE METABOLIC [id number] 00:00:00 Test Item Value Reference Range Interpretation Comments GLUCOSE (test code = 2217) 144 MG/DL BUN (test code = 2208) 15 MG/DL CREATININE (test code = 2214) 0.85 MG/DL eGFR AMER. (test code 87 ML/MIN/1.73 = 92329) eGFR NON- AMER. (test 75 ML/MIN/1.73 code = 01241) CALC BUN/CREAT (test code = 18 RATIO [...] code = 2219) 50 U/L COMPREHENSIVE METABOLIC [id number] 00:00:00 Test Item Value Reference Range Interpretation Comments GLUCOSE (test code = 2217) 144 MG/DL BUN (test code = 2208) 15 MG/DL CREATININE (test code = 2214) 0.85 MG/DL eGFR AMER. (test code 87 ML/MIN/1.73 = 96125) eGFR NON- AMER. (test 75 ML/MIN/1.73 code = 50026) CALC BUN/CREAT (test code = 18 RATIO [...] THYROX. BIND. CAPAC. (test code 1.1 = 12968) T4 (THYROXINE) (test code = 4.3 UG/DL 2819) CORRECTED T4 (FTI) (test code = 3.9 UG/DL 2820) TSH, THIRD GENERATION (test 18.900 UIU/ML code = 2821) THYROID II PROFILE (T3U, T4, T7, TSH)2020-05-23 00:00:00 Test Item Value Reference Range Interpretation Comments T-UPTAKE (test code = 2817) 30.2 % THYROX. BIND. CAPAC. (test code 1.1 = 17544) T4 (THYROXINE) (test code = 4.3 UG/DL 2819) CORRECTED T4 (FTI) (test code = 3.9 UG/DL 2820) TSH, THIRD GENERATION (test 18.900 UIU/ML code = 2821) HEMOGLOBIN [id number] 00:00:00 Test Item Value Reference Range Interpretation Comments HEMOGLOBIN A1c (test code = 60802) 6.6 % HEMOGLOBIN [id number] 00:00:00 Test Item Value Reference Range Interpretation Comments HEMOGLOBIN A1c (test code = 91416) 6.6 % LIPID [id number] 00:00:00 Test Item Value Reference Range Interpretation Comments CHOLESTEROL (test code = 2210) 261 MG/DL TRIGLYCERIDES (test code = 2232) 159 MG/DL HDL CHOLESTEROL (test code = 2220) 82 MG/DL CALC LDL CHOL (test code = 2237) 150 MG/DL RISK RATIO LDL/HDL (test code = 1.83 RATIO 2238) COMPREHENSIVE METABOLIC [id number] 00:00:00 Test Item Value Reference Range Interpretation Comments GLUCOSE (test code = 2217) 144 MG/DL BUN (test code = 2208) 15 MG/DL CREATININE (test code = 2214) 0.85 MG/DL eGFR AMER. (test code 87 ML/MIN/1.73 = 23234) eGFR NON- AMER. (test 75 ML/MIN/1.73 code = 58374) CALC BUN/CREAT (test code = 18 RATIO [...] THYROX. BIND. CAPAC. (test code 1.1 = 62393) T4 (THYROXINE) (test code = 4.3 UG/DL 2819) CORRECTED T4 (FTI) (test code = 3.9 UG/DL 2820) TSH, THIRD GENERATION (test 18.900 UIU/ML code = 2821) HEMOGLOBIN [id number] 00:00:00 Test Item Value Reference Range Interpretation Comments HEMOGLOBIN A1c (test code = 40498) 6.6 % HEMOGLOBIN [id number] 00:00:00 Test Item Value Reference Range Interpretation Comments HEMOGLOBIN A1c (test code = 65288) 6.6 % HEMOGLOBIN [id number] 00:00:00 Test Item Value Reference Range Interpretation Comments HEMOGLOBIN A1c (test code = 54112) 6.6 % LIPID [id number] 00:00:00 Test Item Value Reference Range Interpretation Comments CHOLESTEROL (test code = 2210) 261 MG/DL TRIGLYCERIDES (test code = 2232) 159 MG/DL HDL CHOLESTEROL (test code = 2220) 82 MG/DL CALC LDL CHOL (test code = 2237) 150 MG/DL RISK RATIO LDL/HDL (test code = 1.83 RATIO 2238) LIPID [id number] 00:00:00 Test Item Value Reference Range Interpretation Comments CHOLESTEROL (test code = 2210) 261 MG/DL TRIGLYCERIDES (test code = 2232) 159 MG/DL HDL CHOLESTEROL (test code = 2220) 82 MG/DL CALC LDL CHOL (test code = 2237) 150 MG/DL RISK RATIO LDL/HDL (test code = 1.83 RATIO 2238) COMPREHENSIVE METABOLIC [id number] 00:00:00 Test Item Value Reference Range Interpretation Comments GLUCOSE (test code = 2217) 144 MG/DL BUN (test code = 2208) 15 MG/DL CREATININE (test code = 2214) 0.85 MG/DL eGFR AMER. (test code 87 ML/MIN/1.73 = 43513) eGFR NON- AMER. (test 75 ML/MIN/1.73 code = 30973) CALC BUN/CREAT (test code = 18 RATIO [...] code = 2219) 50 U/L COMPREHENSIVE METABOLIC [id number] 00:00:00 Test Item Value Reference Range Interpretation Comments GLUCOSE (test code = 2217) 144 MG/DL BUN (test code = 2208) 15 MG/DL CREATININE (test code = 2214) 0.85 MG/DL eGFR AMER. (test code 87 ML/MIN/1.73 = 43469) eGFR NON- AMER. (test 75 ML/MIN/1.73 code = 68991) CALC BUN/CREAT (test code = 18 RATIO [...] THYROX. BIND. CAPAC. (test code 1.1 = 12023) T4 (THYROXINE) (test code = 4.3 UG/DL 2819) CORRECTED T4 (FTI) (test code = 3.9 UG/DL 2820) TSH, THIRD GENERATION (test 18.900 UIU/ML code = 2821) THYROID II PROFILE (T3U, T4, T7, TSH)2020-05-23 00:00:00 Test Item Value Reference Range Interpretation Comments T-UPTAKE (test code = 2817) 30.2 % THYROX. BIND. CAPAC. (test code 1.1 = 31416) T4 (THYROXINE) (test code = 4.3 UG/DL 2819) CORRECTED T4 (FTI) (test code = 3.9 UG/DL 2820) TSH, THIRD GENERATION (test 18.900 UIU/ML code = 2821) HEMOGLOBIN [id number] 00:00:00 Test Item Value Reference Range Interpretation Comments HEMOGLOBIN A1c (test code = 16527) 6.7 % HEMOGLOBIN [id number] 00:00:00 Test Item Value Reference Range Interpretation Comments HEMOGLOBIN A1c (test code = 29751) 6.7 % HEMOGLOBIN [id number] 00:00:00 Test Item Value Reference Range Interpretation Comments HEMOGLOBIN A1c (test code = 09291) 6.7 % LIPID [id number] 00:00:00 Test Item Value Reference Range Interpretation Comments CHOLESTEROL (test code = 2210) 267 MG/DL TRIGLYCERIDES (test code = 2232) 137 MG/DL HDL CHOLESTEROL (test code = 2220) 48 MG/DL CALC LDL CHOL (test code = 2237) 192 MG/DL RISK RATIO LDL/HDL (test code = 4.00 RATIO 2238) LIPID [id number] 00:00:00 Test Item Value Reference Range Interpretation Comments CHOLESTEROL (test code = 2210) 267 MG/DL TRIGLYCERIDES (test code = 2232) 137 MG/DL HDL CHOLESTEROL (test code = 2220) 48 MG/DL CALC LDL CHOL (test code = 2237) 192 MG/DL RISK RATIO LDL/HDL (test code = 4.00 RATIO 2238) COMPREHENSIVE METABOLIC [id number] 00:00:00 Test Item Value Reference Range Interpretation Comments GLUCOSE (test code = 2217) 155 MG/DL BUN (test code = 2208) 14 MG/DL CREATININE (test code = 2214) 0.52 MG/DL eGFR AMER. (test code 122 ML/MIN/1.73 = 42901) eGFR NON- AMER. (test 105 ML/MIN/1.73 code = 74201) CALC BUN/CREAT (test code = 27 RATIO [...] code = 2219) 27 U/L COMPREHENSIVE METABOLIC [id number] 00:00:00 Test Item Value Reference Range Interpretation Comments GLUCOSE (test code = 2217) 155 MG/DL BUN (test code = 2208) 14 MG/DL CREATININE (test code = 2214) 0.52 MG/DL eGFR AMER. (test code 122 ML/MIN/1.73 = 38965) eGFR NON- AMER. (test 105 ML/MIN/1.73 code = 62761) CALC BUN/CREAT (test code = 27 RATIO [...] THYROX. BIND. CAPAC. (test code 1.0 = 98108) T4 (THYROXINE) (test code = 4.7 UG/DL 2819) CORRECTED T4 (FTI) (test code = 4.7 UG/DL 2820) TSH, THIRD GENERATION (test code 0.201 UIU/ML = 2821) THYROID II PROFILE (T3U, T4, T7, TSH)2019 00:00:00 Test Item Value Reference Range Interpretation Comments T-UPTAKE (test code = 2816) 33.1 % THYROX. BIND. CAPAC. (test code 1.0 = 54537) T4 (THYROXINE) (test code = 4.7 UG/DL 2819) CORRECTED T4 (FTI) (test code = 4.7 UG/DL 2820) TSH, THIRD GENERATION (test code 0.201 UIU/ML = 2821) HEMOGLOBIN [id number] 00:00:00 Test Item Value Reference Range Interpretation Comments HEMOGLOBIN A1c (test code = 26990) 6.7 % HEMOGLOBIN [id number] 00:00:00 Test Item Value Reference Range Interpretation Comments HEMOGLOBIN A1c (test code = 60764) 6.7 % HEMOGLOBIN [id number] 00:00:00 Test Item Value Reference Range Interpretation Comments HEMOGLOBIN A1c (test code = 38466) 6.7 % LIPID [id number] 00:00:00 Test Item Value Reference Range Interpretation Comments CHOLESTEROL (test code = 2210) 267 MG/DL TRIGLYCERIDES (test code = 2232) 137 MG/DL HDL CHOLESTEROL (test code = 2220) 48 MG/DL CALC LDL CHOL (test code = 2237) 192 MG/DL RISK RATIO LDL/HDL (test code = 4.00 RATIO 2238) LIPID [id number] 00:00:00 Test Item Value Reference Range Interpretation Comments CHOLESTEROL (test code = 2210) 267 MG/DL TRIGLYCERIDES (test code = 2232) 137 MG/DL HDL CHOLESTEROL (test code = 2220) 48 MG/DL CALC LDL CHOL (test code = 2237) 192 MG/DL RISK RATIO LDL/HDL (test code = 4.00 RATIO 2238) COMPREHENSIVE METABOLIC [id number] 00:00:00 Test Item Value Reference Range Interpretation Comments GLUCOSE (test code = 2217) 155 MG/DL BUN (test code = 2208) 14 MG/DL CREATININE (test code = 2214) 0.52 MG/DL eGFR AMER. (test code 122 ML/MIN/1.73 = 04453) eGFR NON- AMER. (test 105 ML/MIN/1.73 code = 26521) CALC BUN/CREAT (test code = 27 RATIO [...] code = 2219) 27 U/L COMPREHENSIVE METABOLIC [id number] 00:00:00 Test Item Value Reference Range Interpretation Comments GLUCOSE (test code = 2217) 155 MG/DL BUN (test code = 2208) 14 MG/DL CREATININE (test code = 2214) 0.52 MG/DL eGFR AMER. (test code 122 ML/MIN/1.73 = 93680) eGFR NON- AMER. (test 105 ML/MIN/1.73 code = 94459) CALC BUN/CREAT (test code = 27 RATIO [...] THYROX. BIND. CAPAC. (test code 1.0 = 22258) T4 (THYROXINE) (test code = 4.7 UG/DL 2819) CORRECTED T4 (FTI) (test code = 4.7 UG/DL 2820) TSH, THIRD GENERATION (test code 0.201 UIU/ML = 2821) THYROID II PROFILE (T3U, T4, T7, TSH)2019 00:00:00 Test Item Value Reference Range Interpretation Comments T-UPTAKE (test code = 2817) 33.1 % THYROX. BIND. CAPAC. (test code 1.0 = 45194) T4 (THYROXINE) (test code = 4.7 UG/DL 2819) CORRECTED T4 (FTI) (test code = 4.7 UG/DL 2820) TSH, THIRD GENERATION (test code 0.201 UIU/ML = 2821) HEMOGLOBIN [id number] 00:00:00 Test Item Value Reference Range Interpretation Comments HEMOGLOBIN A1c (test code = 58630) 6.7 % HEMOGLOBIN [id number] 00:00:00 Test Item Value Reference Range Interpretation Comments HEMOGLOBIN A1c (test code = 28349) 6.7 % LIPID [id number] 00:00:00 Test Item Value Reference Range Interpretation Comments CHOLESTEROL (test code = 2210) 267 MG/DL TRIGLYCERIDES (test code = 2232) 137 MG/DL HDL CHOLESTEROL (test code = 2220) 48 MG/DL CALC LDL CHOL (test code = 2237) 192 MG/DL RISK RATIO LDL/HDL (test code = 4.00 RATIO 2238) COMPREHENSIVE METABOLIC [id number] 00:00:00 Test Item Value Reference Range Interpretation Comments GLUCOSE (test code = 2217) 155 MG/DL BUN (test code = 2208) 14 MG/DL CREATININE (test code = 2214) 0.52 MG/DL eGFR AMER. (test code 122 ML/MIN/1.73 = 10495) eGFR NON- AMER. (test 105 ML/MIN/1.73 code = 03943) CALC BUN/CREAT (test code = 27 RATIO [...] THYROX. BIND. CAPAC. (test code 1.0 = 55109) T4 (THYROXINE) (test code = 4.7 UG/DL 2819) CORRECTED T4 (FTI) (test code = 4.7 UG/DL 2820) TSH, THIRD GENERATION (test code 0.201 UIU/ML = 2821) HEMOGLOBIN [id number] 00:00:00 Test Item Value Reference Range Interpretation Comments HEMOGLOBIN A1c (test code = 08049) 6.7 % HEMOGLOBIN [id number] 00:00:00 Test Item Value Reference Range Interpretation Comments HEMOGLOBIN A1c (test code = 98465) 6.7 % HEMOGLOBIN [id number] 00:00:00 Test Item Value Reference Range Interpretation Comments HEMOGLOBIN A1c (test code = 85357) 6.7 % LIPID [id number] 00:00:00 Test Item Value Reference Range Interpretation Comments CHOLESTEROL (test code = 2210) 267 MG/DL TRIGLYCERIDES (test code = 2232) 137 MG/DL HDL CHOLESTEROL (test code = 2220) 48 MG/DL CALC LDL CHOL (test code = 2237) 192 MG/DL RISK RATIO LDL/HDL (test code = 4.00 RATIO 2238) LIPID [id number] 00:00:00 Test Item Value Reference Range Interpretation Comments CHOLESTEROL (test code = 2210) 267 MG/DL TRIGLYCERIDES (test code = 2232) 137 MG/DL HDL CHOLESTEROL (test code = 2220) 48 MG/DL CALC LDL CHOL (test code = 2237) 192 MG/DL RISK RATIO LDL/HDL (test code = 4.00 RATIO 2238) COMPREHENSIVE METABOLIC [id number] 00:00:00 Test Item Value Reference Range Interpretation Comments GLUCOSE (test code = 2217) 155 MG/DL BUN (test code = 2208) 14 MG/DL CREATININE (test code = 2214) 0.52 MG/DL eGFR AMER. (test code 122 ML/MIN/1.73 = 03662) eGFR NON- AMER. (test 105 ML/MIN/1.73 code = 79961) CALC BUN/CREAT (test code = 27 RATIO [...] code = 2219) 27 U/L COMPREHENSIVE METABOLIC [id number] 00:00:00 Test Item Value Reference Range Interpretation Comments GLUCOSE (test code = 2217) 155 MG/DL BUN (test code = 2208) 14 MG/DL CREATININE (test code = 2214) 0.52 MG/DL eGFR AMER. (test code 122 ML/MIN/1.73 = 09648) eGFR NON- AMER. (test 105 ML/MIN/1.73 code = 43427) CALC BUN/CREAT (test code = 27 RATIO [...] THYROX. BIND. CAPAC. (test code 1.0 = 85232) T4 (THYROXINE) (test code = 4.7 UG/DL 2819) CORRECTED T4 (FTI) (test code = 4.7 UG/DL 2820) TSH, THIRD GENERATION (test code 0.201 UIU/ML = 2821) THYROID II PROFILE (T3U, T4, T7, TSH)2019 00:00:00 Test Item Value Reference Range Interpretation Comments T-UPTAKE (test code = 2817) 33.1 % THYROX. BIND. CAPAC. (test code 1.0 = 19153) T4 (THYROXINE) (test code = 4.7 UG/DL 2819) CORRECTED T4 (FTI) (test code = 4.7 UG/DL 2820) TSH, THIRD GENERATION (test code 0.201 UIU/ML = 2821) SARS-CoV-2 (COVID-19) by RT-PCR (HIGH RISK)2019-09-18 00:00:00 Test Item Value Reference Range Interpretation Comments SARS-CoV-2 INTERPRETATION (test NEGATIVE code = 78067) SOURCE (test code = 23659) NOT SPECIFIED SARS-CoV-2 (COVID-19) by RT-PCR (HIGH RISK)2019-09-18 00:00:00 Test Item Value Reference Range Interpretation Comments SARS-CoV-2 INTERPRETATION (test NEGATIVE code = 50366) SOURCE (test code = 04983) NOT SPECIFIED SARS-CoV-2 (COVID-19) by RT-PCR (HIGH RISK)2019-09-18 00:00:00 Test Item Value Reference Range Interpretation Comments SARS-CoV-2 INTERPRETATION (test NEGATIVE code = 14669) SOURCE (test code = 95246) NOT SPECIFIED SARS-CoV-2 (COVID-19) by RT-PCR (HIGH RISK)2019-09-18 00:00:00 Test Item Value Reference Range Interpretation Comments SARS-CoV-2 INTERPRETATION (test NEGATIVE code = 45530) SOURCE (test code = 85047) NOT SPECIFIED SARS-CoV-2 (COVID-19) by RT-PCR (HIGH RISK)2019-09-18 00:00:00 Test Item Value Reference Range Interpretation Comments SARS-CoV-2 INTERPRETATION (test NEGATIVE code = 41768) SOURCE (test code = 17417) NOT SPECIFIED SARS-CoV-2 (COVID-19) by RT-PCR (HIGH RISK)2019-09-18 00:00:00 Test Item Value Reference Range Interpretation Comments SARS-CoV-2 INTERPRETATION (test NEGATIVE code = 45262) SOURCE (test code = 34272) NOT SPECIFIED SARS-CoV-2 (COVID-19) by RT-PCR (HIGH RISK)2019-09-18 00:00:00 Test Item Value Reference Range Interpretation Comments SARS-CoV-2 INTERPRETATION (test NEGATIVE code = 11324) SOURCE (test code = 42892) NOT SPECIFIED [id number] 00:00:00 Test Item Value Reference Range Interpretation Comments TSH, THIRD GENERATION (test code 2.490 UIU/ML = 2821) [id number] 00:00:00 Test Item Value Reference Range Interpretation Comments TSH, THIRD GENERATION (test code 2.490 UIU/ML = 2821) [id number] 00:00:00 Test Item Value Reference Range Interpretation Comments TSH, THIRD GENERATION (test code 2.490 UIU/ML = 2821) HEMOGLOBIN [id number] 00:00:00 Test Item Value Reference Range Interpretation Comments HEMOGLOBIN A1c (test code = 25810) 6.4 % HEMOGLOBIN [id number] 00:00:00 Test Item Value Reference Range Interpretation Comments HEMOGLOBIN A1c (test code = 96575) 6.4 % HEMOGLOBIN [id number] 00:00:00 Test Item Value Reference Range Interpretation Comments HEMOGLOBIN A1c (test code = 72057) 6.4 % COMPREHENSIVE METABOLIC [id number] 00:00:00 Test Item Value Reference Range Interpretation Comments GLUCOSE (test code = 2217) 206 MG/DL BUN (test code = 2208) 23 MG/DL CREATININE (test code = 2214) 0.67 MG/DL eGFR AMER. (test code 112 ML/MIN/1.73 = 86820) eGFR NON- AMER. (test 97 ML/MIN/1.73 code = 02630) CALC BUN/CREAT (test code = 34 RATIO [...] code = 2219) 25 U/L COMPREHENSIVE METABOLIC [id number] 00:00:00 Test Item Value Reference Range Interpretation Comments GLUCOSE (test code = 2217) 206 MG/DL BUN (test code = 2208) 23 MG/DL CREATININE (test code = 2214) 0.67 MG/DL eGFR AMER. (test code 112 ML/MIN/1.73 = 20585) eGFR NON- AMER. (test 97 ML/MIN/1.73 code = 40641) CALC BUN/CREAT (test code = 34 RATIO [...] ALT (test code = 2219) 25 U/L [id number] 00:00:00 Test Item Value Reference Range Interpretation Comments TSH, THIRD GENERATION (test code 2.490 UIU/ML = 2821) [id number] 00:00:00 Test Item Value Reference Range Interpretation Comments TSH, THIRD GENERATION (test code 2.490 UIU/ML = 2821) [id number] 00:00:00 Test Item Value Reference Range Interpretation Comments TSH, THIRD GENERATION (test code 2.490 UIU/ML = 2821) HEMOGLOBIN [id number] 00:00:00 Test Item Value Reference Range Interpretation Comments HEMOGLOBIN A1c (test code = 17784) 6.4 % HEMOGLOBIN [id number] 00:00:00 Test Item Value Reference Range Interpretation Comments HEMOGLOBIN A1c (test code = 13690) 6.4 % HEMOGLOBIN [id number] 00:00:00 Test Item Value Reference Range Interpretation Comments HEMOGLOBIN A1c (test code = 53595) 6.4 % COMPREHENSIVE METABOLIC [id number] 00:00:00 Test Item Value Reference Range Interpretation Comments GLUCOSE (test code = 2217) 206 MG/DL BUN (test code = 2208) 23 MG/DL CREATININE (test code = 2214) 0.67 MG/DL eGFR AMER. (test code 112 ML/MIN/1.73 = 99160) eGFR NON- AMER. (test 97 ML/MIN/1.73 code = 42121) CALC BUN/CREAT (test code = 34 RATIO [...] code = 2219) 25 U/L COMPREHENSIVE METABOLIC [id number] 00:00:00 Test Item Value Reference Range Interpretation Comments GLUCOSE (test code = 2217) 206 MG/DL BUN (test code = 2208) 23 MG/DL CREATININE (test code = 2214) 0.67 MG/DL eGFR AMER. (test code 112 ML/MIN/1.73 = 01973) eGFR NON- AMER. (test 97 ML/MIN/1.73 code = 64791) CALC BUN/CREAT (test code = 34 RATIO [...] ALT (test code = 2219) 25 U/L [id number] 00:00:00 Test Item Value Reference Range Interpretation Comments TSH, THIRD GENERATION (test code 2.490 UIU/ML = 2821) [id number] 00:00:00 Test Item Value Reference Range Interpretation Comments TSH, THIRD GENERATION (test code 2.490 UIU/ML = 2821) HEMOGLOBIN [id number] 00:00:00 Test Item Value Reference Range Interpretation Comments HEMOGLOBIN A1c (test code = 81857) 6.4 % HEMOGLOBIN [id number] 00:00:00 Test Item Value Reference Range Interpretation Comments HEMOGLOBIN A1c (test code = 34068) 6.4 % COMPREHENSIVE METABOLIC [id number] 00:00:00 Test Item Value Reference Range Interpretation Comments GLUCOSE (test code = 2217) 206 MG/DL BUN (test code = 2208) 23 MG/DL CREATININE (test code = 2214) 0.67 MG/DL eGFR AMER. (test code 112 ML/MIN/1.73 = 72701) eGFR NON- AMER. (test 97 ML/MIN/1.73 code = 98754) CALC BUN/CREAT (test code = 34 RATIO [...] ALT (test code = 2219) 25 U/L [id number] 00:00:00 Test Item Value Reference Range Interpretation Comments TSH, THIRD GENERATION (test code 2.490 UIU/ML = 2821) [id number] 00:00:00 Test Item Value Reference Range Interpretation Comments TSH, THIRD GENERATION (test code 2.490 UIU/ML = 2821) [id number] 00:00:00 Test Item Value Reference Range Interpretation Comments TSH, THIRD GENERATION (test code 2.490 UIU/ML = 2821) HEMOGLOBIN [id number] 00:00:00 Test Item Value Reference Range Interpretation Comments HEMOGLOBIN A1c (test code = 43769) 6.4 % HEMOGLOBIN [id number] 00:00:00 Test Item Value Reference Range Interpretation Comments HEMOGLOBIN A1c (test code = 45068) 6.4 % HEMOGLOBIN [id number] 00:00:00 Test Item Value Reference Range Interpretation Comments HEMOGLOBIN A1c (test code = 99560) 6.4 % COMPREHENSIVE METABOLIC [id number] 00:00:00 Test Item Value Reference Range Interpretation Comments GLUCOSE (test code = 2217) 206 MG/DL BUN (test code = 2208) 23 MG/DL CREATININE (test code = 2214) 0.67 MG/DL eGFR AMER. (test code 112 ML/MIN/1.73 = 79999) eGFR NON- AMER. (test 97 ML/MIN/1.73 code = 18015) CALC BUN/CREAT (test code = 34 RATIO [...] code = 2219) 25 U/L COMPREHENSIVE METABOLIC [id number] 00:00:00 Test Item Value Reference Range Interpretation Comments GLUCOSE (test code = 2217) 206 MG/DL BUN (test code = 2208) 23 MG/DL CREATININE (test code = 2214) 0.67 MG/DL eGFR AMER. (test code 112 ML/MIN/1.73 = 87108) eGFR NON- AMER. (test 97 ML/MIN/1.73 code = 41453) CALC BUN/CREAT (test code = 34 RATIO [...] = 2219) 25 U/L VAGINAL PATHOGENS DNA [id number] 00:00:00 Test Item Value Reference Range Interpretation Comments MARK SPECIES (test code = 85004) NEGATIVE G. VAGINALIS (test code = 58848) NEGATIVE T. VAGINALIS (test code = 40655) NEGATIVE VAGINAL PATHOGENS DNA [id number] 00:00:00 Test Item Value Reference Range Interpretation Comments MARK SPECIES (test code = 57330) NEGATIVE G. VAGINALIS (test code = 25230) NEGATIVE T. VAGINALIS (test code = 01213) NEGATIVE VAGINAL PATHOGENS DNA [id number] 00:00:00 Test Item Value Reference Range Interpretation Comments MARK SPECIES (test code = 43322) NEGATIVE G. VAGINALIS (test code = 65683) NEGATIVE T. VAGINALIS (test code = 55702) NEGATIVE VAGINAL PATHOGENS DNA [id number] 00:00:00 Test Item Value Reference Range Interpretation Comments MARK SPECIES (test code = 70892) NEGATIVE G. VAGINALIS (test code = 25866) NEGATIVE T. VAGINALIS (test code = 70776) NEGATIVE VAGINAL PATHOGENS DNA [id number] 00:00:00 Test Item Value Reference Range Interpretation Comments MARK SPECIES (test code = 69373) NEGATIVE G. VAGINALIS (test code = 89845) NEGATIVE T. VAGINALIS (test code = 94381) NEGATIVE VAGINAL PATHOGENS DNA [id number] 00:00:00 Test Item Value Reference Range Interpretation Comments MARK SPECIES (test code = 91783) NEGATIVE G. VAGINALIS (test code = 82298) NEGATIVE T. VAGINALIS (test code = 11921) NEGATIVE VAGINAL PATHOGENS DNA [id number] 00:00:00 Test Item Value Reference Range Interpretation Comments MARK SPECIES (test code = 15168) NEGATIVE G. VAGINALIS (test code = 78998) NEGATIVE T. VAGINALIS (test code = 57797) NEGATIVE HEMOGLOBIN A1c [ADDED]2018-12-01 00:00:00 Test Item Value Reference Range Interpretation Comments HEMOGLOBIN A1c (test code = 11880) 6.7 % HEMOGLOBIN A1c [ADDED]2018-12-01 00:00:00 Test Item Value Reference Range Interpretation Comments HEMOGLOBIN A1c (test code = 86474) 6.7 % HEMOGLOBIN A1c [ADDED]2018-12-01 00:00:00 Test Item Value Reference Range Interpretation Comments HEMOGLOBIN A1c (test code = 40790) 6.7 % COMPREHENSIVE METABOLIC PANEL [ADDED]2018-12-01 00:00:00 Test Item Value Reference Range Interpretation Comments GLUCOSE (test code = 2217) 136 MG/DL BUN (test code = 2208) 15 MG/DL CREATININE (test code = 2214) 0.64 MG/DL eGFR AMER. (test code 115 ML/MIN/1.73 = 44146) eGFR NON- AMER. (test 99 ML/MIN/1.73 code = 69943) CALC BUN/CREAT (test code = 23 RATIO [...] eGFR AMER. (test code 115 ML/MIN/1.73 = 08246) eGFR NON- AMER. (test 99 ML/MIN/1.73 code = 25726) CALC BUN/CREAT (test code = 23 RATIO [...] Interpretation Comments HEMOGLOBIN A1c (test code = 21918) 6.7 % HEMOGLOBIN A1c [ADDED]2018-12-01 00:00:00 Test Item Value Reference Range Interpretation Comments HEMOGLOBIN A1c (test code = 85285) 6.7 % HEMOGLOBIN A1c [ADDED]2018-12-01 00:00:00 Test Item Value Reference Range Interpretation Comments HEMOGLOBIN A1c (test code = 04795) 6.7 % COMPREHENSIVE METABOLIC PANEL [ADDED]2018-12-01 00:00:00 Test Item Value Reference Range Interpretation Comments GLUCOSE (test code = 2217) 136 MG/DL BUN (test code = 2208) 15 MG/DL CREATININE (test code = 2214) 0.64 MG/DL eGFR AMER. (test code 115 ML/MIN/1.73 = 91221) eGFR NON- AMER. (test 99 ML/MIN/1.73 code = 88997) CALC BUN/CREAT (test code = 23 RATIO [...] eGFR AMER. (test code 115 ML/MIN/1.73 = 77146) eGFR NON- AMER. (test 99 ML/MIN/1.73 code = 73444) CALC BUN/CREAT (test code = 23 RATIO [...] Interpretation Comments HEMOGLOBIN A1c (test code = 56782) 6.7 % HEMOGLOBIN A1c [ADDED]2018-12-01 00:00:00 Test Item Value Reference Range Interpretation Comments HEMOGLOBIN A1c (test code = 30898) 6.7 % COMPREHENSIVE METABOLIC PANEL [ADDED]2018-12-01 00:00:00 Test Item Value Reference Range Interpretation Comments GLUCOSE (test code = 2217) 136 MG/DL BUN (test code = 2208) 15 MG/DL CREATININE (test code = 2214) 0.64 MG/DL eGFR AMER. (test code 115 ML/MIN/1.73 = 91401) eGFR NON- AMER. (test 99 ML/MIN/1.73 code = 29952) CALC BUN/CREAT (test code = 23 RATIO [...] Interpretation Comments HEMOGLOBIN A1c (test code = 77010) 6.7 % HEMOGLOBIN A1c [ADDED]2018-12-01 00:00:00 Test Item Value Reference Range Interpretation Comments HEMOGLOBIN A1c (test code = 63746) 6.7 % HEMOGLOBIN A1c [ADDED]2018-12-01 00:00:00 Test Item Value Reference Range Interpretation Comments HEMOGLOBIN A1c (test code = 03600) 6.7 % COMPREHENSIVE METABOLIC PANEL [ADDED]2018-12-01 00:00:00 Test Item Value Reference Range Interpretation Comments GLUCOSE (test code = 2217) 136 MG/DL BUN (test code = 2208) 15 MG/DL CREATININE (test code = 2214) 0.64 MG/DL eGFR AMER. (test code 115 ML/MIN/1.73 = 50003) eGFR NON- AMER. (test 99 ML/MIN/1.73 code = 75702) CALC BUN/CREAT (test code = 23 RATIO [...] eGFR AMER. (test code 115 ML/MIN/1.73 = 02939) eGFR NON- AMER. (test 99 ML/MIN/1.73 code = 55588) CALC BUN/CREAT (test code = 23 RATIO [...] code 1.280 UIU/ML = 2821) CBC W/AUTO [id number] 00:00:00 Test Item Value Reference Range Interpretation [...] code = 1015) 346 K/UL CBC W/AUTO [id number] 00:00:00 Test Item Value Reference Range Interpretation [...] code = 1015) 346 K/UL CBC W/AUTO [id number] 00:00:00 Test Item Value Reference Range Interpretation [...] (test code = 1015) 346 K/UL HEMOGLOBIN [id number] 00:00:00 Test Item Value Reference Range Interpretation Comments HEMOGLOBIN A1c (test code = 01371) 5.9 % HEMOGLOBIN [id number] 00:00:00 Test Item Value Reference Range Interpretation Comments HEMOGLOBIN A1c (test code = 20190) 5.9 % HEMOGLOBIN [id number] 00:00:00 Test Item Value Reference Range Interpretation Comments HEMOGLOBIN A1c (test code = 62100) 5.9 % LIPID [id number] 00:00:00 Test Item Value Reference Range Interpretation Comments CHOLESTEROL (test code = 2210) 318 MG/DL TRIGLYCERIDES (test code = 2232) 263 MG/DL HDL CHOLESTEROL (test code = 2220) 51 MG/DL CALC LDL CHOL (test code = 2237) 214 MG/DL RISK RATIO LDL/HDL (test code = 4.20 RATIO 2238) LIPID [id number] 00:00:00 Test Item Value Reference Range Interpretation Comments CHOLESTEROL (test code = 2210) 318 MG/DL TRIGLYCERIDES (test code = 2232) 263 MG/DL HDL CHOLESTEROL (test code = 2220) 51 MG/DL CALC LDL CHOL (test code = 2237) 214 MG/DL RISK RATIO LDL/HDL (test code = 4.20 RATIO 2238) COMPREHENSIVE METABOLIC [id number] 00:00:00 Test Item Value Reference Range Interpretation Comments GLUCOSE (test code = 2217) 113 MG/DL BUN (test code = 2208) 18 MG/DL CREATININE (test code = 2214) 0.70 MG/DL eGFR AMER. (test code 111 ML/MIN/1.73 = 57097) eGFR NON- AMER. (test 96 ML/MIN/1.73 code = 69290) CALC BUN/CREAT (test code = 26 RATIO [...] code = 2219) 31 U/L COMPREHENSIVE METABOLIC [id number] 00:00:00 Test Item Value Reference Range Interpretation Comments GLUCOSE (test code = 2217) 113 MG/DL BUN (test code = 2208) 18 MG/DL CREATININE (test code = 2214) 0.70 MG/DL eGFR AMER. (test code 111 ML/MIN/1.73 = 83005) eGFR NON- AMER. (test 96 ML/MIN/1.73 code = 89498) CALC BUN/CREAT (test code = 26 RATIO [...] ALT (test code = 2219) 31 U/L [id number] 00:00:00 Test Item Value Reference Range Interpretation Comments TSH, THIRD GENERATION (test code 2.520 UIU/ML = 2821) [id number] 00:00:00 Test Item Value Reference Range Interpretation Comments TSH, THIRD GENERATION (test code 2.520 UIU/ML = 2821) [id number] 00:00:00 Test Item Value Reference Range Interpretation Comments TSH, THIRD GENERATION (test code 2.520 UIU/ML = 2821) CBC W/AUTO [id number] 00:00:00 Test Item Value Reference Range Interpretation [...] code = 1015) 346 K/UL CBC W/AUTO [id number] 00:00:00 Test Item Value Reference Range Interpretation [...] code = 1015) 346 K/UL CBC W/AUTO [id number] 00:00:00 Test Item Value Reference Range Interpretation [...] (test code = 1015) 346 K/UL HEMOGLOBIN [id number] 00:00:00 Test Item Value Reference Range Interpretation Comments HEMOGLOBIN A1c (test code = 48775) 5.9 % HEMOGLOBIN [id number] 00:00:00 Test Item Value Reference Range Interpretation Comments HEMOGLOBIN A1c (test code = 33650) 5.9 % HEMOGLOBIN [id number] 00:00:00 Test Item Value Reference Range Interpretation Comments HEMOGLOBIN A1c (test code = 93328) 5.9 % LIPID [id number] 00:00:00 Test Item Value Reference Range Interpretation Comments CHOLESTEROL (test code = 2210) 318 MG/DL TRIGLYCERIDES (test code = 2232) 263 MG/DL HDL CHOLESTEROL (test code = 2220) 51 MG/DL CALC LDL CHOL (test code = 2237) 214 MG/DL RISK RATIO LDL/HDL (test code = 4.20 RATIO 2238) LIPID [id number] 00:00:00 Test Item Value Reference Range Interpretation Comments CHOLESTEROL (test code = 2210) 318 MG/DL TRIGLYCERIDES (test code = 2232) 263 MG/DL HDL CHOLESTEROL (test code = 2220) 51 MG/DL CALC LDL CHOL (test code = 2237) 214 MG/DL RISK RATIO LDL/HDL (test code = 4.20 RATIO 2238) COMPREHENSIVE METABOLIC [id number] 00:00:00 Test Item Value Reference Range Interpretation Comments GLUCOSE (test code = 2217) 113 MG/DL BUN (test code = 2208) 18 MG/DL CREATININE (test code = 2214) 0.70 MG/DL eGFR AMER. (test code 111 ML/MIN/1.73 = 70560) eGFR NON- AMER. (test 96 ML/MIN/1.73 code = 30084) CALC BUN/CREAT (test code = 26 RATIO [...] code = 2219) 31 U/L COMPREHENSIVE METABOLIC [id number] 00:00:00 Test Item Value Reference Range Interpretation Comments GLUCOSE (test code = 2217) 113 MG/DL BUN (test code = 2208) 18 MG/DL CREATININE (test code = 2214) 0.70 MG/DL eGFR AMER. (test code 111 ML/MIN/1.73 = 38470) eGFR NON- AMER. (test 96 ML/MIN/1.73 code = 03234) CALC BUN/CREAT (test code = 26 RATIO [...] ALT (test code = 2219) 31 U/L [id number] 00:00:00 Test Item Value Reference Range Interpretation Comments TSH, THIRD GENERATION (test code 2.520 UIU/ML = 2821) [id number] 00:00:00 Test Item Value Reference Range Interpretation Comments TSH, THIRD GENERATION (test code 2.520 UIU/ML = 2821) [id number] 00:00:00 Test Item Value Reference Range Interpretation Comments TSH, THIRD GENERATION (test code 2.520 UIU/ML = 2821) CBC W/AUTO [id number] 00:00:00 Test Item Value Reference Range Interpretation [...] code = 1015) 346 K/UL CBC W/AUTO [id number] 00:00:00 Test Item Value Reference Range Interpretation [...] (test code = 1015) 346 K/UL HEMOGLOBIN [id number] 00:00:00 Test Item Value Reference Range Interpretation Comments HEMOGLOBIN A1c (test code = 13424) 5.9 % HEMOGLOBIN [id number] 00:00:00 Test Item Value Reference Range Interpretation Comments HEMOGLOBIN A1c (test code = 43239) 5.9 % LIPID [id number] 00:00:00 Test Item Value Reference Range Interpretation Comments CHOLESTEROL (test code = 2210) 318 MG/DL TRIGLYCERIDES (test code = 2232) 263 MG/DL HDL CHOLESTEROL (test code = 2220) 51 MG/DL CALC LDL CHOL (test code = 2237) 214 MG/DL RISK RATIO LDL/HDL (test code = 4.20 RATIO 2238) COMPREHENSIVE METABOLIC [id number] 00:00:00 Test Item Value Reference Range Interpretation Comments GLUCOSE (test code = 2217) 113 MG/DL BUN (test code = 2208) 18 MG/DL CREATININE (test code = 2214) 0.70 MG/DL eGFR AMER. (test code 111 ML/MIN/1.73 = 87825) eGFR NON- AMER. (test 96 ML/MIN/1.73 code = 31253) CALC BUN/CREAT (test code = 26 RATIO [...] ALT (test code = 2219) 31 U/L [id number] 00:00:00 Test Item Value Reference Range Interpretation Comments TSH, THIRD GENERATION (test code 2.520 UIU/ML = 2821) [id number] 00:00:00 Test Item Value Reference Range Interpretation Comments TSH, THIRD GENERATION (test code 2.520 UIU/ML = 2821) CBC W/AUTO [id number] 00:00:00 Test Item Value Reference Range Interpretation [...] code = 1015) 346 K/UL CBC W/AUTO [id number] 00:00:00 Test Item Value Reference Range Interpretation [...] code = 1015) 346 K/UL CBC W/AUTO [id number] 00:00:00 Test Item Value Reference Range Interpretation [...] (test code = 1015) 346 K/UL HEMOGLOBIN [id number] 00:00:00 Test Item Value Reference Range Interpretation Comments HEMOGLOBIN A1c (test code = 07645) 5.9 % HEMOGLOBIN [id number] 00:00:00 Test Item Value Reference Range Interpretation Comments HEMOGLOBIN A1c (test code = 23337) 5.9 % HEMOGLOBIN [id number] 00:00:00 Test Item Value Reference Range Interpretation Comments HEMOGLOBIN A1c (test code = 08029) 5.9 % LIPID [id number] 00:00:00 Test Item Value Reference Range Interpretation Comments CHOLESTEROL (test code = 2210) 318 MG/DL TRIGLYCERIDES (test code = 2232) 263 MG/DL HDL CHOLESTEROL (test code = 2220) 51 MG/DL CALC LDL CHOL (test code = 2237) 214 MG/DL RISK RATIO LDL/HDL (test code = 4.20 RATIO 2238) LIPID [id number] 00:00:00 Test Item Value Reference Range Interpretation Comments CHOLESTEROL (test code = 2210) 318 MG/DL TRIGLYCERIDES (test code = 2232) 263 MG/DL HDL CHOLESTEROL (test code = 2220) 51 MG/DL CALC LDL CHOL (test code = 2237) 214 MG/DL RISK RATIO LDL/HDL (test code = 4.20 RATIO 2238) COMPREHENSIVE METABOLIC [id number] 00:00:00 Test Item Value Reference Range Interpretation Comments GLUCOSE (test code = 2217) 113 MG/DL BUN (test code = 2208) 18 MG/DL CREATININE (test code = 2214) 0.70 MG/DL eGFR AMER. (test code 111 ML/MIN/1.73 = 28363) eGFR NON- AMER. (test 96 ML/MIN/1.73 code = 20227) CALC BUN/CREAT (test code = 26 RATIO [...] code = 2219) 31 U/L COMPREHENSIVE METABOLIC [id number] 00:00:00 Test Item Value Reference Range Interpretation Comments GLUCOSE (test code = 2217) 113 MG/DL BUN (test code = 2208) 18 MG/DL CREATININE (test code = 2214) 0.70 MG/DL eGFR AMER. (test code 111 ML/MIN/1.73 = 42730) eGFR NON- AMER. (test 96 ML/MIN/1.73 code = 66877) CALC BUN/CREAT (test code = 26 RATIO [...] ALT (test code = 2219) 31 U/L [id number] 00:00:00 Test Item Value Reference Range Interpretation Comments TSH, THIRD GENERATION (test code 2.520 UIU/ML = 2821) [id number] 00:00:00 Test Item Value Reference Range Interpretation Comments TSH, THIRD GENERATION (test code 2.520 UIU/ML = 2821) [id number] 00:00:00 Test Item Value Reference Range Interpretation Comments TSH, THIRD GENERATION (test code 2.520 UIU/ML = 2821) CULTURE, [id number] 00:00:00 Test Item Value Reference Range Interpretation Comments CULTURE, URINE (test SPECIMEN NUMBER: code = 86351) [id number] CULTURE, [id number] 00:00:00 Test Item Value Reference Range Interpretation Comments CULTURE, URINE (test SPECIMEN NUMBER: code = 60259) [id number] CULTURE, [id number] 00:00:00 Test Item Value Reference Range Interpretation Comments CULTURE, URINE (test SPECIMEN NUMBER: code = 08007) [id number] CULTURE, [id number] 00:00:00 Test Item Value Reference Range Interpretation Comments CULTURE, URINE (test SPECIMEN NUMBER: code = 19469) [id number] CULTURE, [id number] 00:00:00 Test Item Value Reference Range Interpretation Comments CULTURE, URINE (test SPECIMEN NUMBER: code = 88989) [id number] CULTURE, [id number] 00:00:00 Test Item Value Reference Range Interpretation Comments CULTURE, URINE (test SPECIMEN NUMBER: code = 99108) [id number] CULTURE, [id number] 00:00:00 Test Item Value Reference Range Interpretation Comments CULTURE, URINE (test SPECIMEN NUMBER: code = 47868) [id number] CULTURE, [id number] 00:00:00 Test Item Value Reference Range Interpretation Comments CULTURE, URINE (test SPECIMEN NUMBER: code = 23577) [id number] CULTURE, [id number] 00:00:00 Test Item Value Reference Range Interpretation Comments CULTURE, URINE (test SPECIMEN NUMBER: code = 20145) [id number] CULTURE, [id number] 00:00:00 Test Item Value Reference Range Interpretation Comments CULTURE, URINE (test SPECIMEN NUMBER: code = 92886) [id number] CULTURE, [id number] 00:00:00 Test Item Value Reference Range Interpretation Comments CULTURE, URINE (test SPECIMEN NUMBER: code = 08796) [id number] CULTURE, [id number] 00:00:00 Test Item Value Reference Range Interpretation Comments CULTURE, URINE (test SPECIMEN NUMBER: code = 56663) [id number] CULTURE, [id number] 00:00:00 Test Item Value Reference Range Interpretation Comments CULTURE, URINE (test SPECIMEN NUMBER: code = 77952) [id number] CULTURE, [id number] 00:00:00 Test Item Value Reference Range Interpretation Comments CULTURE, URINE (test SPECIMEN NUMBER: code = 03552) [id number] BASIC METABOLIC [id number] 00:00:00 Test Item Value Reference Range Interpretation Comments GLUCOSE (test code = 2217) 135 MG/DL BUN (test code = 2208) 25 MG/DL CREATININE (test code = 2214) 0.76 MG/DL eGFR AMER. (test code 101 ML/MIN/1.73 = 90137) eGFR NON- AMER. (test 87 ML/MIN/1.73 code = 54293) SODIUM (test code = 2231) 139 MEQ/L POTASSIUM (test code = 2228) 4.7 MEQ/L CHLORIDE (test code = 2215) 99 MEQ/L CARBON DIOXIDE (test code = 26 MEQ/L 2206) CALCIUM (test code = 2209) 9.4 MG/DL BASIC METABOLIC [id number] 00:00:00 Test Item Value Reference Range Interpretation Comments GLUCOSE (test code = 2217) 135 MG/DL BUN (test code = 2208) 25 MG/DL CREATININE (test code = 2214) 0.76 MG/DL eGFR AMER. (test code 101 ML/MIN/1.73 = 93751) eGFR NON- AMER. (test 87 ML/MIN/1.73 code = 87052) SODIUM (test code = 2231) 139 MEQ/L POTASSIUM (test code = 2228) 4.7 MEQ/L CHLORIDE (test code = 2215) 99 MEQ/L CARBON DIOXIDE (test code = 26 MEQ/L 2206) CALCIUM (test code = 2209) 9.4 MG/DL LIPID [id number] 00:00:00 Test Item Value Reference Range Interpretation Comments CHOLESTEROL (test code = 2210) 262 MG/DL TRIGLYCERIDES (test code = 2232) 300 MG/DL HDL CHOLESTEROL (test code = 2220) 36 MG/DL CALC LDL CHOL (test code = 2237) 166 MG/DL RISK RATIO LDL/HDL (test code = 4.61 RATIO 2238) LIPID [id number] 00:00:00 Test Item Value Reference Range Interpretation Comments CHOLESTEROL (test code = 2210) 262 MG/DL TRIGLYCERIDES (test code = 2232) 300 MG/DL HDL CHOLESTEROL (test code = 2220) 36 MG/DL CALC LDL CHOL (test code = 2237) 166 MG/DL RISK RATIO LDL/HDL (test code = 4.61 RATIO 2238) HEMOGLOBIN [id number] 00:00:00 Test Item Value Reference Range Interpretation Comments HEMOGLOBIN A1c (test code = 39318) 6.2 % HEMOGLOBIN [id number] 00:00:00 Test Item Value Reference Range Interpretation Comments HEMOGLOBIN A1c (test code = 31248) 6.2 % HEMOGLOBIN [id number] 00:00:00 Test Item Value Reference Range Interpretation Comments HEMOGLOBIN A1c (test code = 21704) 6.2 % [id number] 00:00:00 Test Item Value Reference Range Interpretation Comments TSH, THIRD GENERATION (test code 0.988 UIU/ML = 2821) [id number] 00:00:00 Test Item Value Reference Range Interpretation Comments TSH, THIRD GENERATION (test code 0.988 UIU/ML = 2821) [id number] 00:00:00 Test Item Value Reference Range Interpretation Comments TSH, THIRD GENERATION (test code 0.988 UIU/ML = 2821) BASIC METABOLIC [id number] 00:00:00 Test Item Value Reference Range Interpretation Comments GLUCOSE (test code = 2217) 135 MG/DL BUN (test code = 2208) 25 MG/DL CREATININE (test code = 2214) 0.76 MG/DL eGFR AMER. (test code 101 ML/MIN/1.73 = 51259) eGFR NON- AMER. (test 87 ML/MIN/1.73 code = 16184) SODIUM (test code = 2231) 139 MEQ/L POTASSIUM (test code = 2228) 4.7 MEQ/L CHLORIDE (test code = 2215) 99 MEQ/L CARBON DIOXIDE (test code = 26 MEQ/L 2206) CALCIUM (test code = 2209) 9.4 MG/DL BASIC METABOLIC [id number] 00:00:00 Test Item Value Reference Range Interpretation Comments GLUCOSE (test code = 2217) 135 MG/DL BUN (test code = 2208) 25 MG/DL CREATININE (test code = 2214) 0.76 MG/DL eGFR AMER. (test code 101 ML/MIN/1.73 = 14407) eGFR NON- AMER. (test 87 ML/MIN/1.73 code = 73001) SODIUM (test code = 2231) 139 MEQ/L POTASSIUM (test code = 2228) 4.7 MEQ/L CHLORIDE (test code = 2215) 99 MEQ/L CARBON DIOXIDE (test code = 26 MEQ/L 2206) CALCIUM (test code = 2209) 9.4 MG/DL LIPID [id number] 00:00:00 Test Item Value Reference Range Interpretation Comments CHOLESTEROL (test code = 2210) 262 MG/DL TRIGLYCERIDES (test code = 2232) 300 MG/DL HDL CHOLESTEROL (test code = 2220) 36 MG/DL CALC LDL CHOL (test code = 2237) 166 MG/DL RISK RATIO LDL/HDL (test code = 4.61 RATIO 2238) LIPID [id number] 00:00:00 Test Item Value Reference Range Interpretation Comments CHOLESTEROL (test code = 2210) 262 MG/DL TRIGLYCERIDES (test code = 2232) 300 MG/DL HDL CHOLESTEROL (test code = 2220) 36 MG/DL CALC LDL CHOL (test code = 2237) 166 MG/DL RISK RATIO LDL/HDL (test code = 4.61 RATIO 2238) HEMOGLOBIN [id number] 00:00:00 Test Item Value Reference Range Interpretation Comments HEMOGLOBIN A1c (test code = 47054) 6.2 % HEMOGLOBIN [id number] 00:00:00 Test Item Value Reference Range Interpretation Comments HEMOGLOBIN A1c (test code = 60222) 6.2 % HEMOGLOBIN [id number] 00:00:00 Test Item Value Reference Range Interpretation Comments HEMOGLOBIN A1c (test code = 55650) 6.2 % [id number] 00:00:00 Test Item Value Reference Range Interpretation Comments TSH, THIRD GENERATION (test code 0.988 UIU/ML = 2821) [id number] 00:00:00 Test Item Value Reference Range Interpretation Comments TSH, THIRD GENERATION (test code 0.988 UIU/ML = 2821) [id number] 00:00:00 Test Item Value Reference Range Interpretation Comments TSH, THIRD GENERATION (test code 0.988 UIU/ML = 2821) BASIC METABOLIC [id number] 00:00:00 Test Item Value Reference Range Interpretation Comments GLUCOSE (test code = 2217) 135 MG/DL BUN (test code = 2208) 25 MG/DL CREATININE (test code = 2214) 0.76 MG/DL eGFR AMER. (test code 101 ML/MIN/1.73 = 77883) eGFR NON- AMER. (test 87 ML/MIN/1.73 code = 48777) SODIUM (test code = 2231) 139 MEQ/L POTASSIUM (test code = 2228) 4.7 MEQ/L CHLORIDE (test code = 2215) 99 MEQ/L CARBON DIOXIDE (test code = 26 MEQ/L 2206) CALCIUM (test code = 2209) 9.4 MG/DL LIPID [id number] 00:00:00 Test Item Value Reference Range Interpretation Comments CHOLESTEROL (test code = 2210) 262 MG/DL TRIGLYCERIDES (test code = 2232) 300 MG/DL HDL CHOLESTEROL (test code = 2220) 36 MG/DL CALC LDL CHOL (test code = 2237) 166 MG/DL RISK RATIO LDL/HDL (test code = 4.61 RATIO 2238) HEMOGLOBIN [id number] 00:00:00 Test Item Value Reference Range Interpretation Comments HEMOGLOBIN A1c (test code = 35912) 6.2 % HEMOGLOBIN [id number] 00:00:00 Test Item Value Reference Range Interpretation Comments HEMOGLOBIN A1c (test code = 08908) 6.2 % [id number] 00:00:00 Test Item Value Reference Range Interpretation Comments TSH, THIRD GENERATION (test code 0.988 UIU/ML = 2821) [id number] 00:00:00 Test Item Value Reference Range Interpretation Comments TSH, THIRD GENERATION (test code 0.988 UIU/ML = 2821) BASIC METABOLIC [id number] 00:00:00 Test Item Value Reference Range Interpretation Comments GLUCOSE (test code = 2217) 135 MG/DL BUN (test code = 2208) 25 MG/DL CREATININE (test code = 2214) 0.76 MG/DL eGFR AMER. (test code 101 ML/MIN/1.73 = 55231) eGFR NON- AMER. (test 87 ML/MIN/1.73 code = 88333) SODIUM (test code = 2231) 139 MEQ/L POTASSIUM (test code = 2228) 4.7 MEQ/L CHLORIDE (test code = 2215) 99 MEQ/L CARBON DIOXIDE (test code = 26 MEQ/L 2206) CALCIUM (test code = 2209) 9.4 MG/DL BASIC METABOLIC [id number] 00:00:00 Test Item Value Reference Range Interpretation Comments GLUCOSE (test code = 2217) 135 MG/DL BUN (test code = 2208) 25 MG/DL CREATININE (test code = 2214) 0.76 MG/DL eGFR AMER. (test code 101 ML/MIN/1.73 = 67203) eGFR NON- AMER. (test 87 ML/MIN/1.73 code = 00154) SODIUM (test code = 2231) 139 MEQ/L POTASSIUM (test code = 2228) 4.7 MEQ/L CHLORIDE (test code = 2215) 99 MEQ/L CARBON DIOXIDE (test code = 26 MEQ/L 2206) CALCIUM (test code = 2209) 9.4 MG/DL LIPID [id number] 00:00:00 Test Item Value Reference Range Interpretation Comments CHOLESTEROL (test code = 2210) 262 MG/DL TRIGLYCERIDES (test code = 2232) 300 MG/DL HDL CHOLESTEROL (test code = 2220) 36 MG/DL CALC LDL CHOL (test code = 2237) 166 MG/DL RISK RATIO LDL/HDL (test code = 4.61 RATIO 2238) LIPID [id number] 00:00:00 Test Item Value Reference Range Interpretation Comments CHOLESTEROL (test code = 2210) 262 MG/DL TRIGLYCERIDES (test code = 2232) 300 MG/DL HDL CHOLESTEROL (test code = 2220) 36 MG/DL CALC LDL CHOL (test code = 2237) 166 MG/DL RISK RATIO LDL/HDL (test code = 4.61 RATIO 2238) HEMOGLOBIN [id number] 00:00:00 Test Item Value Reference Range Interpretation Comments HEMOGLOBIN A1c (test code = 43477) 6.2 % HEMOGLOBIN [id number] 00:00:00 Test Item Value Reference Range Interpretation Comments HEMOGLOBIN A1c (test code = 82610) 6.2 % HEMOGLOBIN [id number] 00:00:00 Test Item Value Reference Range Interpretation Comments HEMOGLOBIN A1c (test code = 37744) 6.2 % [id number] 00:00:00 Test Item Value Reference Range Interpretation Comments TSH, THIRD GENERATION (test code 0.988 UIU/ML = 2821) [id number] 00:00:00 Test Item Value Reference Range Interpretation Comments TSH, THIRD GENERATION (test code 0.988 UIU/ML = 2821) [id number] 00:00:00 Test Item Value Reference Range Interpretation Comments TSH, THIRD GENERATION (test code 0.988 UIU/ML = 2821) COMPREHENSIVE METABOLIC [id number] 00:00:00 Test Item Value Reference Range Interpretation Comments GLUCOSE (test code = 2217) 109 MG/DL BUN (test code = 2208) 25 MG/DL CREATININE (test code = 2214) 0.78 MG/DL eGFR AMER. (test code 98 ML/MIN/1.73 = 25502) eGFR NON- AMER. (test 84 ML/MIN/1.73 code = 78348) CALC BUN/CREAT (test code = 32 RATIO [...] code = 2219) 25 U/L COMPREHENSIVE METABOLIC [id number] 00:00:00 Test Item Value Reference Range Interpretation Comments GLUCOSE (test code = 2217) 109 MG/DL BUN (test code = 2208) 25 MG/DL CREATININE (test code = 2214) 0.78 MG/DL eGFR AMER. (test code 98 ML/MIN/1.73 = 70143) eGFR NON- AMER. (test 84 ML/MIN/1.73 code = 73648) CALC BUN/CREAT (test code = 32 RATIO [...] (test code = 2219) 25 U/L LIPID [id number] 00:00:00 Test Item Value Reference Range Interpretation Comments CHOLESTEROL (test code = 2210) 295 MG/DL TRIGLYCERIDES (test code = 2232) 218 MG/DL HDL CHOLESTEROL (test code = 2220) 46 MG/DL CALC LDL CHOL (test code = 2237) 205 MG/DL RISK RATIO LDL/HDL (test code = 4.47 RATIO 2238) LIPID [id number] 00:00:00 Test Item Value Reference Range Interpretation Comments CHOLESTEROL (test code = 2210) 295 MG/DL TRIGLYCERIDES (test code = 2232) 218 MG/DL HDL CHOLESTEROL (test code = 2220) 46 MG/DL CALC LDL CHOL (test code = 2237) 205 MG/DL RISK RATIO LDL/HDL (test code = 4.47 RATIO 2238) HEMOGLOBIN [id number] 00:00:00 Test Item Value Reference Range Interpretation Comments HEMOGLOBIN A1c (test code = 27456) 7.0 % HEMOGLOBIN [id number] 00:00:00 Test Item Value Reference Range Interpretation Comments HEMOGLOBIN A1c (test code = 69601) 7.0 % HEMOGLOBIN [id number] 00:00:00 Test Item Value Reference Range Interpretation Comments HEMOGLOBIN A1c (test code = 80688) 7.0 % [id number] 00:00:00 Test Item Value Reference Range Interpretation Comments TSH, THIRD GENERATION (test code 0.565 UIU/ML = 2821) [id number] 00:00:00 Test Item Value Reference Range Interpretation Comments TSH, THIRD GENERATION (test code 0.565 UIU/ML = 2821) [id number] 00:00:00 Test Item Value Reference Range Interpretation Comments TSH, THIRD GENERATION (test code 0.565 UIU/ML = 2821) COMPREHENSIVE METABOLIC [id number] 00:00:00 Test Item Value Reference Range Interpretation Comments GLUCOSE (test code = 2217) 109 MG/DL BUN (test code = 2208) 25 MG/DL CREATININE (test code = 2214) 0.78 MG/DL eGFR AMER. (test code 98 ML/MIN/1.73 = 35834) eGFR NON- AMER. (test 84 ML/MIN/1.73 code = 94899) CALC BUN/CREAT (test code = 32 RATIO [...] code = 2219) 25 U/L COMPREHENSIVE METABOLIC [id number] 00:00:00 Test Item Value Reference Range Interpretation Comments GLUCOSE (test code = 2217) 109 MG/DL BUN (test code = 2208) 25 MG/DL CREATININE (test code = 2214) 0.78 MG/DL eGFR AMER. (test code 98 ML/MIN/1.73 = 83937) eGFR NON- AMER. (test 84 ML/MIN/1.73 code = 28733) CALC BUN/CREAT (test code = 32 RATIO [...] (test code = 2219) 25 U/L LIPID [id number] 00:00:00 Test Item Value Reference Range Interpretation Comments CHOLESTEROL (test code = 2210) 295 MG/DL TRIGLYCERIDES (test code = 2232) 218 MG/DL HDL CHOLESTEROL (test code = 2220) 46 MG/DL CALC LDL CHOL (test code = 2237) 205 MG/DL RISK RATIO LDL/HDL (test code = 4.47 RATIO 2238) LIPID [id number] 00:00:00 Test Item Value Reference Range Interpretation Comments CHOLESTEROL (test code = 2210) 295 MG/DL TRIGLYCERIDES (test code = 2232) 218 MG/DL HDL CHOLESTEROL (test code = 2220) 46 MG/DL CALC LDL CHOL (test code = 2237) 205 MG/DL RISK RATIO LDL/HDL (test code = 4.47 RATIO 2238) HEMOGLOBIN [id number] 00:00:00 Test Item Value Reference Range Interpretation Comments HEMOGLOBIN A1c (test code = 43994) 7.0 % HEMOGLOBIN [id number] 00:00:00 Test Item Value Reference Range Interpretation Comments HEMOGLOBIN A1c (test code = 73288) 7.0 % HEMOGLOBIN [id number] 00:00:00 Test Item Value Reference Range Interpretation Comments HEMOGLOBIN A1c (test code = 80078) 7.0 % [id number] 00:00:00 Test Item Value Reference Range Interpretation Comments TSH, THIRD GENERATION (test code 0.565 UIU/ML = 2821) [id number] 00:00:00 Test Item Value Reference Range Interpretation Comments TSH, THIRD GENERATION (test code 0.565 UIU/ML = 2821) [id number] 00:00:00 Test Item Value Reference Range Interpretation Comments TSH, THIRD GENERATION (test code 0.565 UIU/ML = 2821) COMPREHENSIVE METABOLIC [id number] 00:00:00 Test Item Value Reference Range Interpretation Comments GLUCOSE (test code = 2217) 109 MG/DL BUN (test code = 2208) 25 MG/DL CREATININE (test code = 2214) 0.78 MG/DL eGFR AMER. (test code 98 ML/MIN/1.73 = 89589) eGFR NON- AMER. (test 84 ML/MIN/1.73 code = 62983) CALC BUN/CREAT (test code = 32 RATIO [...] (test code = 2219) 25 U/L LIPID [id number] 00:00:00 Test Item Value Reference Range Interpretation Comments CHOLESTEROL (test code = 2210) 295 MG/DL TRIGLYCERIDES (test code = 2232) 218 MG/DL HDL CHOLESTEROL (test code = 2220) 46 MG/DL CALC LDL CHOL (test code = 2237) 205 MG/DL RISK RATIO LDL/HDL (test code = 4.47 RATIO 2238) HEMOGLOBIN [id number] 00:00:00 Test Item Value Reference Range Interpretation Comments HEMOGLOBIN A1c (test code = 98232) 7.0 % HEMOGLOBIN [id number] 00:00:00 Test Item Value Reference Range Interpretation Comments HEMOGLOBIN A1c (test code = 96498) 7.0 % [id number] 00:00:00 Test Item Value Reference Range Interpretation Comments TSH, THIRD GENERATION (test code 0.565 UIU/ML = 2821) [id number] 00:00:00 Test Item Value Reference Range Interpretation Comments TSH, THIRD GENERATION (test code 0.565 UIU/ML = 2821) COMPREHENSIVE METABOLIC [id number] 00:00:00 Test Item Value Reference Range Interpretation Comments GLUCOSE (test code = 2217) 109 MG/DL BUN (test code = 2208) 25 MG/DL CREATININE (test code = 2214) 0.78 MG/DL eGFR AMER. (test code 98 ML/MIN/1.73 = 57977) eGFR NON- AMER. (test 84 ML/MIN/1.73 code = 04417) CALC BUN/CREAT (test code = 32 RATIO 2235) SODIUM (test code = 2231) 139 MEQ/L POTASSIUM (test code = 2228) 4.5 MEQ/L CHLORIDE (test code = 2215) 96 MEQ/L CARBON DIOXIDE (test code = 27 MEQ/L 6) CALCIUM (test code = 2209) 10.0 MG/DL [...] code = 2219) 25 U/L COMPREHENSIVE METABOLIC [id number] 00:00:00 Test Item Value Reference Range Interpretation Comments GLUCOSE (test code = 2217) 109 MG/DL BUN (test code = 2208) 25 MG/DL CREATININE (test code = 2214) 0.78 MG/DL eGFR AMER. (test code 98 ML/MIN/1.73 = 42743) eGFR NON- AMER. (test 84 ML/MIN/1.73 code = 82752) CALC BUN/CREAT (test code = 32 RATIO [...] (test code = 2219) 25 U/L LIPID [id number] 00:00:00 Test Item Value Reference Range Interpretation Comments CHOLESTEROL (test code = 2210) 295 MG/DL TRIGLYCERIDES (test code = 2232) 218 MG/DL HDL CHOLESTEROL (test code = 2220) 46 MG/DL CALC LDL CHOL (test code = 2237) 205 MG/DL RISK RATIO LDL/HDL (test code = 4.47 RATIO 2238) LIPID [id number] 00:00:00 Test Item Value Reference Range Interpretation Comments CHOLESTEROL (test code = 2210) 295 MG/DL TRIGLYCERIDES (test code = 2232) 218 MG/DL HDL CHOLESTEROL (test code = 2220) 46 MG/DL CALC LDL CHOL (test code = 2237) 205 MG/DL RISK RATIO LDL/HDL (test code = 4.47 RATIO 2238) HEMOGLOBIN [id number] 00:00:00 Test Item Value Reference Range Interpretation Comments HEMOGLOBIN A1c (test code = 79958) 7.0 % HEMOGLOBIN [id number] 00:00:00 Test Item Value Reference Range Interpretation Comments HEMOGLOBIN A1c (test code = 30484) 7.0 % HEMOGLOBIN [id number] 00:00:00 Test Item Value Reference Range Interpretation Comments HEMOGLOBIN A1c (test code = 72557) 7.0 % [id number] 00:00:00 Test Item Value Reference Range Interpretation Comments TSH, THIRD GENERATION (test code 0.565 UIU/ML = 2821) [id number] 00:00:00 Test Item Value Reference Range Interpretation Comments TSH, THIRD GENERATION (test code 0.565 UIU/ML = 2821) [id number] 00:00:00 Test Item Value Reference Range Interpretation Comments TSH, THIRD GENERATION (test code 0.565 UIU/ML = 2821) [id number] 00:00:00 Test Item Value Reference Range Interpretation Comments TSH, THIRD GENERATION (test code 0.379 UIU/ML = 2821) [id number] 00:00:00 Test Item Value Reference Range Interpretation Comments TSH, THIRD GENERATION (test code 0.379 UIU/ML = 2821) [id number] 00:00:00 Test Item Value Reference Range Interpretation Comments TSH, THIRD GENERATION (test code 0.379 UIU/ML = 2821) [id number] 00:00:00 Test Item Value Reference Range Interpretation Comments TSH, THIRD GENERATION (test code 0.379 UIU/ML = 2821) [id number] 00:00:00 Test Item Value Reference Range Interpretation Comments TSH, THIRD GENERATION (test code 0.379 UIU/ML = 2821) [id number] 00:00:00 Test Item Value Reference Range Interpretation Comments TSH, THIRD GENERATION (test code 0.379 UIU/ML = 2821) [id number] 00:00:00 Test Item Value Reference Range Interpretation Comments TSH, THIRD GENERATION (test code 0.379 UIU/ML = 2821) [id number] 00:00:00 Test Item Value Reference Range Interpretation Comments TSH, THIRD GENERATION (test code 0.379 UIU/ML = 2821) [id number] 00:00:00 Test Item Value Reference Range Interpretation Comments TSH, THIRD GENERATION (test code 0.379 UIU/ML = 2821) [id number] 00:00:00 Test Item Value Reference Range Interpretation Comments TSH, THIRD GENERATION (test code 0.379 UIU/ML = 2821) [id number] 00:00:00 Test Item Value Reference Range Interpretation Comments TSH, THIRD GENERATION (test code 0.379 UIU/ML = 2821) CULTURE, [id number] 00:00:00 Test Item Value Reference Range Interpretation Comments CULTURE, URINE (test SPECIMEN NUMBER: code = 16057) [id number] CULTURE, [id number] 00:00:00 Test Item Value Reference Range Interpretation Comments CULTURE, URINE (test SPECIMEN NUMBER: code = 87070) [id number] CULTURE, [id number] 00:00:00 Test Item Value Reference Range Interpretation Comments CULTURE, URINE (test SPECIMEN NUMBER: code = 79498) [id number] CULTURE, [id number] 00:00:00 Test Item Value Reference Range Interpretation Comments CULTURE, URINE (test SPECIMEN NUMBER: code = 75563) [id number] CULTURE, [id number] 00:00:00 Test Item Value Reference Range Interpretation Comments CULTURE, URINE (test SPECIMEN NUMBER: code = 93828) [id number] CULTURE, [id number] 00:00:00 Test Item Value Reference Range Interpretation Comments CULTURE, URINE (test SPECIMEN NUMBER: code = 84680) [id number] CULTURE, [id number] 00:00:00 Test Item Value Reference Range Interpretation Comments CULTURE, URINE (test SPECIMEN NUMBER: code = 48209) [id number] COMPREHENSIVE METABOLIC [id number] 00:00:00 Test Item Value Reference Range Interpretation Comments GLUCOSE (test code = 2217) 128 MG/DL BUN (test code = 2208) 26 MG/DL CREATININE (test code = 2214) 0.92 MG/DL eGFR AMER. (test code 81 ML/MIN/1.73 = 84782) eGFR NON- AMER. (test 70 ML/MIN/1.73 code = 20534) CALC BUN/CREAT (test code = 28 RATIO [...] code = 2219) 29 U/L COMPREHENSIVE METABOLIC [id number] 00:00:00 Test Item Value Reference Range Interpretation Comments GLUCOSE (test code = 2217) 128 MG/DL BUN (test code = 2208) 26 MG/DL CREATININE (test code = 2214) 0.92 MG/DL eGFR AMER. (test code 81 ML/MIN/1.73 = 80441) eGFR NON- AMER. (test 70 ML/MIN/1.73 code = 53381) CALC BUN/CREAT (test code = 28 RATIO [...] code = 2219) 29 U/L ACUTE HEPATITIS [id number] 00:00:00 Test Item Value Reference Range Interpretation Comments HEPATITIS A IgM (test code = NON-REACTIVE ) HEPATITIS B CORE IgM (test code NON-REACTIVE = 4644) HEPATITIS B SURF AG (test code = NON-REACTIVE 1229) HEPATITIS C ANTIBODY (test code NON-REACTIVE = 4675) INTERPRETATION HEPATITIS A: (NOTE) (test code = 2552) INTERPRETATION HEPATITIS B: (NOTE) (test code = 07941) INTERPRETATION HEPATITIS C: (NOTE) (test code = 95179) ACUTE HEPATITIS [id number] 00:00:00 Test Item Value Reference Range Interpretation Comments HEPATITIS A IgM (test code = NON-REACTIVE 41735) HEPATITIS B CORE IgM (test code NON-REACTIVE = 4644) HEPATITIS B SURF AG (test code = NON-REACTIVE 6151) HEPATITIS C ANTIBODY (test code NON-REACTIVE = 4603) INTERPRETATION HEPATITIS A: (NOTE) (test code = 2552) INTERPRETATION HEPATITIS B: (NOTE) (test code = 20069) INTERPRETATION HEPATITIS C: (NOTE) (test code = 40932) [id number] 00:00:00 Test Item Value Reference Range Interpretation Comments AMYLASE (test code = 2205) 32 U/L [id number] 00:00:00 Test Item Value Reference Range Interpretation Comments AMYLASE (test code = 2205) 32 U/L [id number] 00:00:00 Test Item Value Reference Range Interpretation Comments LIPASE (test code = 2058) 22 U/L [id number] 00:00:00 Test Item Value Reference Range Interpretation Comments LIPASE (test code = 2058) 22 U/L [id number] 00:00:00 Test Item Value Reference Range Interpretation Comments LIPASE (test code = 2058) 22 U/L COMPREHENSIVE METABOLIC [id number] 00:00:00 Test Item Value Reference Range Interpretation Comments GLUCOSE (test code = 2217) 128 MG/DL BUN (test code = 2208) 26 MG/DL CREATININE (test code = 2214) 0.92 MG/DL eGFR AMER. (test code 81 ML/MIN/1.73 = 47837) eGFR NON- AMER. (test 70 ML/MIN/1.73 code = 49888) CALC BUN/CREAT (test code = 28 RATIO [...] code = 2219) 29 U/L COMPREHENSIVE METABOLIC [id number] 00:00:00 Test Item Value Reference Range Interpretation Comments GLUCOSE (test code = 2217) 128 MG/DL BUN (test code = 2208) 26 MG/DL CREATININE (test code = 2214) 0.92 MG/DL eGFR AMER. (test code 81 ML/MIN/1.73 = 21551) eGFR NON- AMER. (test 70 ML/MIN/1.73 code = 84306) CALC BUN/CREAT (test code = 28 RATIO [...] code = 2219) 29 U/L ACUTE HEPATITIS [id number] 00:00:00 Test Item Value Reference Range Interpretation Comments HEPATITIS A IgM (test code = NON-REACTIVE 13821) HEPATITIS B CORE IgM (test code NON-REACTIVE = 4644) HEPATITIS B SURF AG (test code = NON-REACTIVE 2739) HEPATITIS C ANTIBODY (test code NON-REACTIVE = 4675) INTERPRETATION HEPATITIS A: (NOTE) (test code = 2552) INTERPRETATION HEPATITIS B: (NOTE) (test code = 79780) INTERPRETATION HEPATITIS C: (NOTE) (test code = 54274) ACUTE HEPATITIS [id number] 00:00:00 Test Item Value Reference Range Interpretation Comments HEPATITIS A IgM (test code = NON-REACTIVE 47513) HEPATITIS B CORE IgM (test code NON-REACTIVE = 4644) HEPATITIS B SURF AG (test code = NON-REACTIVE 2739) HEPATITIS C ANTIBODY (test code NON-REACTIVE = 4675) INTERPRETATION HEPATITIS A: (NOTE) (test code = 2552) INTERPRETATION HEPATITIS B: (NOTE) (test code = 81868) INTERPRETATION HEPATITIS C: (NOTE) (test code = 47606) [id number] 00:00:00 Test Item Value Reference Range Interpretation Comments AMYLASE (test code = 2205) 32 U/L [id number] 00:00:00 Test Item Value Reference Range Interpretation Comments AMYLASE (test code = 2205) 32 U/L [id number] 00:00:00 Test Item Value Reference Range Interpretation Comments LIPASE (test code = 2058) 22 U/L [id number] 00:00:00 Test Item Value Reference Range Interpretation Comments LIPASE (test code = 2058) 22 U/L [id number] 00:00:00 Test Item Value Reference Range Interpretation Comments LIPASE (test code = 2058) 22 U/L COMPREHENSIVE METABOLIC [id number] 00:00:00 Test Item Value Reference Range Interpretation Comments GLUCOSE (test code = 2217) 128 MG/DL BUN (test code = 2208) 26 MG/DL CREATININE (test code = 2214) 0.92 MG/DL eGFR AMER. (test code 81 ML/MIN/1.73 = 44364) eGFR NON- AMER. (test 70 ML/MIN/1.73 code = 66867) CALC BUN/CREAT (test code = 28 RATIO [...] code = 2219) 29 U/L ACUTE HEPATITIS [id number] 00:00:00 Test Item Value Reference Range Interpretation Comments HEPATITIS A IgM (test code = NON-REACTIVE 87234) HEPATITIS B CORE IgM (test code NON-REACTIVE = 4644) HEPATITIS B SURF AG (test code = NON-REACTIVE 7079) HEPATITIS C ANTIBODY (test code NON-REACTIVE = 4140) INTERPRETATION HEPATITIS A: (NOTE) (test code = 2552) INTERPRETATION HEPATITIS B: (NOTE) (test code = 26833) INTERPRETATION HEPATITIS C: (NOTE) (test code = 30159) [id number] 00:00:00 Test Item Value Reference Range Interpretation Comments AMYLASE (test code = 2205) 32 U/L [id number] 00:00:00 Test Item Value Reference Range Interpretation Comments LIPASE (test code = 2058) 22 U/L [id number] 00:00:00 Test Item Value Reference Range Interpretation Comments LIPASE (test code = 2058) 22 U/L COMPREHENSIVE METABOLIC [id number] 00:00:00 Test Item Value Reference Range Interpretation Comments GLUCOSE (test code = 2217) 128 MG/DL BUN (test code = 2208) 26 MG/DL CREATININE (test code = 2214) 0.92 MG/DL eGFR AMER. (test code 81 ML/MIN/1.73 = 02563) eGFR NON- AMER. (test 70 ML/MIN/1.73 code = 39338) CALC BUN/CREAT (test code = 28 RATIO [...] code = 2219) 29 U/L COMPREHENSIVE METABOLIC [id number] 00:00:00 Test Item Value Reference Range Interpretation Comments GLUCOSE (test code = 2217) 128 MG/DL BUN (test code = 2208) 26 MG/DL CREATININE (test code = 2214) 0.92 MG/DL eGFR AMER. (test code 81 ML/MIN/1.73 = 17332) eGFR NON- AMER. (test 70 ML/MIN/1.73 code = 36580) CALC BUN/CREAT (test code = 28 RATIO [...] code = 2219) 29 U/L ACUTE HEPATITIS [id number] 00:00:00 Test Item Value Reference Range Interpretation Comments HEPATITIS A IgM (test code = NON-REACTIVE 56296) HEPATITIS B CORE IgM (test code NON-REACTIVE = 4644) HEPATITIS B SURF AG (test code = NON-REACTIVE 2739) HEPATITIS C ANTIBODY (test code NON-REACTIVE = 4675) INTERPRETATION HEPATITIS A: (NOTE) (test code = 2552) INTERPRETATION HEPATITIS B: (NOTE) (test code = 14038) INTERPRETATION HEPATITIS C: (NOTE) (test code = 41132) ACUTE HEPATITIS [id number] 00:00:00 Test Item Value Reference Range Interpretation Comments HEPATITIS A IgM (test code = NON-REACTIVE 39035) HEPATITIS B CORE IgM (test code NON-REACTIVE = 4644) HEPATITIS B SURF AG (test code = NON-REACTIVE 2739) HEPATITIS C ANTIBODY (test code NON-REACTIVE = 4675) INTERPRETATION HEPATITIS A: (NOTE) (test code = 2552) INTERPRETATION HEPATITIS B: (NOTE) (test code = 45078) INTERPRETATION HEPATITIS C: (NOTE) (test code = 26447) [id number] 00:00:00 Test Item Value Reference Range Interpretation Comments AMYLASE (test code = 2205) 32 U/L [id number] 00:00:00 Test Item Value Reference Range Interpretation Comments AMYLASE (test code = 2205) 32 U/L [id number] 00:00:00 Test Item Value Reference Range Interpretation Comments LIPASE (test code = 2058) 22 U/L [id number] 00:00:00 Test Item Value Reference Range Interpretation Comments LIPASE (test code = 2058) 22 U/L [id number] 00:00:00 Test Item Value Reference Range Interpretation Comments LIPASE (test code = 2058) 22 U/L [id number] 00:00:00 Test Item Value Reference Range Interpretation Comments TSH, THIRD GENERATION (test code 4.890 UIU/ML = 2821) [id number] 00:00:00 Test Item Value Reference Range Interpretation Comments TSH, THIRD GENERATION (test code 4.890 UIU/ML = 2821) [id number] 00:00:00 Test Item Value Reference Range Interpretation Comments TSH, THIRD GENERATION (test code 4.890 UIU/ML = 2821) COMPREHENSIVE METABOLIC [id number] 00:00:00 Test Item Value Reference Range Interpretation Comments GLUCOSE (test code = 2217) 121 MG/DL BUN (test code = 2208) 40 MG/DL CREATININE (test code = 2214) 1.48 MG/DL eGFR AMER. (test code 45 ML/MIN/1.73 = 28121) eGFR NON- AMER. (test 39 ML/MIN/1.73 code = 24940) CALC BUN/CREAT (test code = 27 RATIO [...] code = 2219) 20 U/L COMPREHENSIVE METABOLIC [id number] 00:00:00 Test Item Value Reference Range Interpretation Comments GLUCOSE (test code = 2217) 121 MG/DL BUN (test code = 2208) 40 MG/DL CREATININE (test code = 2214) 1.48 MG/DL eGFR AMER. (test code 45 ML/MIN/1.73 = 61655) eGFR NON- AMER. (test 39 ML/MIN/1.73 code = 50736) CALC BUN/CREAT (test code = 27 RATIO [...] ALT (test code = 2219) 20 U/L [id number] 00:00:00 Test Item Value Reference Range Interpretation Comments TSH, THIRD GENERATION (test code 4.890 UIU/ML = 2821) [id number] 00:00:00 Test Item Value Reference Range Interpretation Comments TSH, THIRD GENERATION (test code 4.890 UIU/ML = 2821) [id number] 00:00:00 Test Item Value Reference Range Interpretation Comments TSH, THIRD GENERATION (test code 4.890 UIU/ML = 2821) COMPREHENSIVE METABOLIC [id number] 00:00:00 Test Item Value Reference Range Interpretation Comments GLUCOSE (test code = 2217) 121 MG/DL BUN (test code = 2208) 40 MG/DL CREATININE (test code = 2214) 1.48 MG/DL eGFR AMER. (test code 45 ML/MIN/1.73 = 94384) eGFR NON- AMER. (test 39 ML/MIN/1.73 code = 72839) CALC BUN/CREAT (test code = 27 RATIO [...] code = 2219) 20 U/L COMPREHENSIVE METABOLIC [id number] 00:00:00 Test Item Value Reference Range Interpretation Comments GLUCOSE (test code = 2217) 121 MG/DL BUN (test code = 2208) 40 MG/DL CREATININE (test code = 2214) 1.48 MG/DL eGFR AMER. (test code 45 ML/MIN/1.73 = 14648) eGFR NON- AMER. (test 39 ML/MIN/1.73 code = 51931) CALC BUN/CREAT (test code = 27 RATIO [...] ALT (test code = 2219) 20 U/L [id number] 00:00:00 Test Item Value Reference Range Interpretation Comments TSH, THIRD GENERATION (test code 4.890 UIU/ML = 2821) [id number] 00:00:00 Test Item Value Reference Range Interpretation Comments TSH, THIRD GENERATION (test code 4.890 UIU/ML = 2821) COMPREHENSIVE METABOLIC [id number] 00:00:00 Test Item Value Reference Range Interpretation Comments GLUCOSE (test code = 2217) 121 MG/DL BUN (test code = 2208) 40 MG/DL CREATININE (test code = 2214) 1.48 MG/DL eGFR AMER. (test code 45 ML/MIN/1.73 = 85795) eGFR NON- AMER. (test 39 ML/MIN/1.73 code = 63034) CALC BUN/CREAT (test code = 27 RATIO [...] ALT (test code = 2219) 20 U/L [id number] 00:00:00 Test Item Value Reference Range Interpretation Comments TSH, THIRD GENERATION (test code 4.890 UIU/ML = 2821) [id number] 00:00:00 Test Item Value Reference Range Interpretation Comments TSH, THIRD GENERATION (test code 4.890 UIU/ML = 2821) [id number] 00:00:00 Test Item Value Reference Range Interpretation Comments TSH, THIRD GENERATION (test code 4.890 UIU/ML = 2821) COMPREHENSIVE METABOLIC [id number] 00:00:00 Test Item Value Reference Range Interpretation Comments GLUCOSE (test code = 2217) 121 MG/DL BUN (test code = 2208) 40 MG/DL CREATININE (test code = 2214) 1.48 MG/DL eGFR AMER. (test code 45 ML/MIN/1.73 = 78060) eGFR NON- AMER. (test 39 ML/MIN/1.73 code = 16109) CALC BUN/CREAT (test code = 27 RATIO [...] code = 2219) 20 U/L COMPREHENSIVE METABOLIC [id number] 00:00:00 Test Item Value Reference Range Interpretation Comments GLUCOSE (test code = 2217) 121 MG/DL BUN (test code = 2208) 40 MG/DL CREATININE (test code = 2214) 1.48 MG/DL eGFR AMER. (test code 45 ML/MIN/1.73 = 35481) eGFR NON- AMER. (test 39 ML/MIN/1.73 code = 98756) CALC BUN/CREAT (test code = 27 RATIO [...] (test code = 2219) 20 U/L LIPID [id number] 00:00:00 Test Item Value Reference Range Interpretation Comments CHOLESTEROL (test code = 2210) 261 MG/DL TRIGLYCERIDES (test code = 2232) 165 MG/DL HDL CHOLESTEROL (test code = 2220) 58 MG/DL CALC LDL CHOL (test code = 2237) 170 MG/DL RISK RATIO LDL/HDL (test code = 2.93 RATIO 2238) LIPID [id number] 00:00:00 Test Item Value Reference Range Interpretation Comments CHOLESTEROL (test code = 2210) 261 MG/DL TRIGLYCERIDES (test code = 2232) 165 MG/DL HDL CHOLESTEROL (test code = 2220) 58 MG/DL CALC LDL CHOL (test code = 2237) 170 MG/DL RISK RATIO LDL/HDL (test code = 2.93 RATIO 2238) CBC W/AUTO [id number] 00:00:00 Test Item Value Reference Range Interpretation [...] code = 1015) 378 K/UL CBC W/AUTO [id number] 00:00:00 Test Item Value Reference Range Interpretation [...] code = 1015) 378 K/UL CBC W/AUTO [id number] 00:00:00 Test Item Value Reference Range Interpretation [...] (test code = 1015) 378 K/UL HEMOGLOBIN [id number] 00:00:00 Test Item Value Reference Range Interpretation Comments HEMOGLOBIN A1c (test code = 36140) 6.4 % HEMOGLOBIN [id number] 00:00:00 Test Item Value Reference Range Interpretation Comments HEMOGLOBIN A1c (test code = 28603) 6.4 % HEMOGLOBIN [id number] 00:00:00 Test Item Value Reference Range Interpretation Comments HEMOGLOBIN A1c (test code = 01195) 6.4 % [id number] 00:00:00 Test Item Value Reference Range Interpretation Comments TSH (test code = 2821) 5.290 UIU/ML [id number] 00:00:00 Test Item Value Reference Range Interpretation Comments TSH (test code = 2821) 5.290 UIU/ML [id number] 00:00:00 Test Item Value Reference Range Interpretation Comments TSH (test code = 2821) 5.290 UIU/ML LIPID [id number] 00:00:00 Test Item Value Reference Range Interpretation Comments CHOLESTEROL (test code = 2210) 261 MG/DL TRIGLYCERIDES (test code = 2232) 165 MG/DL HDL CHOLESTEROL (test code = 2220) 58 MG/DL CALC LDL CHOL (test code = 2237) 170 MG/DL RISK RATIO LDL/HDL (test code = 2.93 RATIO 2238) LIPID [id number] 00:00:00 Test Item Value Reference Range Interpretation Comments CHOLESTEROL (test code = 2210) 261 MG/DL TRIGLYCERIDES (test code = 2232) 165 MG/DL HDL CHOLESTEROL (test code = 2220) 58 MG/DL CALC LDL CHOL (test code = 2237) 170 MG/DL RISK RATIO LDL/HDL (test code = 2.93 RATIO 2238) CBC W/AUTO [id number] 00:00:00 Test Item Value Reference Range Interpretation [...] code = 1015) 378 K/UL CBC W/AUTO [id number] 00:00:00 Test Item Value Reference Range Interpretation [...] code = 1015) 378 K/UL CBC W/AUTO [id number] 00:00:00 Test Item Value Reference Range Interpretation [...] (test code = 1015) 378 K/UL HEMOGLOBIN [id number] 00:00:00 Test Item Value Reference Range Interpretation Comments HEMOGLOBIN A1c (test code = 45352) 6.4 % HEMOGLOBIN [id number] 00:00:00 Test Item Value Reference Range Interpretation Comments HEMOGLOBIN A1c (test code = 28280) 6.4 % HEMOGLOBIN [id number] 00:00:00 Test Item Value Reference Range Interpretation Comments HEMOGLOBIN A1c (test code = 60299) 6.4 % [id number] 00:00:00 Test Item Value Reference Range Interpretation Comments TSH (test code = 2821) 5.290 UIU/ML [id number] 00:00:00 Test Item Value Reference Range Interpretation Comments TSH (test code = 2821) 5.290 UIU/ML [id number] 00:00:00 Test Item Value Reference Range Interpretation Comments TSH (test code = 2821) 5.290 UIU/ML LIPID [id number] 00:00:00 Test Item Value Reference Range Interpretation Comments CHOLESTEROL (test code = 2210) 261 MG/DL TRIGLYCERIDES (test code = 2232) 165 MG/DL HDL CHOLESTEROL (test code = 2220) 58 MG/DL CALC LDL CHOL (test code = 2237) 170 MG/DL RISK RATIO LDL/HDL (test code = 2.93 RATIO 2238) CBC W/AUTO [id number] 00:00:00 Test Item Value Reference Range Interpretation [...] code = 1015) 378 K/UL CBC W/AUTO [id number] 00:00:00 Test Item Value Reference Range Interpretation [...] (test code = 1015) 378 K/UL HEMOGLOBIN [id number] 00:00:00 Test Item Value Reference Range Interpretation Comments HEMOGLOBIN A1c (test code = 27746) 6.4 % HEMOGLOBIN [id number] 00:00:00 Test Item Value Reference Range Interpretation Comments HEMOGLOBIN A1c (test code = 40929) 6.4 % [id number] 00:00:00 Test Item Value Reference Range Interpretation Comments TSH (test code = 2821) 5.290 UIU/ML [id number] 00:00:00 Test Item Value Reference Range Interpretation Comments TSH (test code = 2821) 5.290 UIU/ML LIPID [id number] 00:00:00 Test Item Value Reference Range Interpretation Comments CHOLESTEROL (test code = 2210) 261 MG/DL TRIGLYCERIDES (test code = 2232) 165 MG/DL HDL CHOLESTEROL (test code = 2220) 58 MG/DL CALC LDL CHOL (test code = 2237) 170 MG/DL RISK RATIO LDL/HDL (test code = 2.93 RATIO 2238) LIPID [id number] 00:00:00 Test Item Value Reference Range Interpretation Comments CHOLESTEROL (test code = 2210) 261 MG/DL TRIGLYCERIDES (test code = 2232) 165 MG/DL HDL CHOLESTEROL (test code = 2220) 58 MG/DL CALC LDL CHOL (test code = 2237) 170 MG/DL RISK RATIO LDL/HDL (test code = 2.93 RATIO 2238) CBC W/AUTO [id number] 00:00:00 Test Item Value Reference Range Interpretation [...] code = 1015) 378 K/UL CBC W/AUTO [id number] 00:00:00 Test Item Value Reference Range Interpretation [...] code = 1015) 378 K/UL CBC W/AUTO [id number] 00:00:00 Test Item Value Reference Range Interpretation [...] (test code = 1015) 378 K/UL HEMOGLOBIN [id number] 00:00:00 Test Item Value Reference Range Interpretation Comments HEMOGLOBIN A1c (test code = 68860) 6.4 % HEMOGLOBIN [id number] 00:00:00 Test Item Value Reference Range Interpretation Comments HEMOGLOBIN A1c (test code = 43064) 6.4 % HEMOGLOBIN [id number] 00:00:00 Test Item Value Reference Range Interpretation Comments HEMOGLOBIN A1c (test code = 13282) 6.4 % [id number] 00:00:00 Test Item Value Reference Range Interpretation Comments TSH (test code = 2821) 5.290 UIU/ML [id number] 00:00:00 Test Item Value Reference Range Interpretation Comments TSH (test code = 2821) 5.290 UIU/ML [id number] 00:00:00 Test Item Value Reference Range Interpretation [...] code = 2821) 1.030 UIU/ML COMPREHENSIVE METABOLIC [id number] 00:00:00 Test Item Value Reference Range Interpretation Comments GLUCOSE (test code = 2217) 106 MG/DL BUN (test code = 2208) 23 MG/DL CREATININE (test code = 2214) 0.66 MG/DL eGFR AMER. (test code 114 ML/MIN/1.73 = 73276) eGFR NON- AMER. (test 99 ML/MIN/1.73 code = 57503) CALC BUN/CREAT (test code = 35 RATIO [...] code = 2219) 31 U/L COMPREHENSIVE METABOLIC [id number] 00:00:00 Test Item Value Reference Range Interpretation Comments GLUCOSE (test code = 2217) 106 MG/DL BUN (test code = 2208) 23 MG/DL CREATININE (test code = 2214) 0.66 MG/DL eGFR AMER. (test code 114 ML/MIN/1.73 = 93715) eGFR NON- AMER. (test 99 ML/MIN/1.73 code = 55484) CALC BUN/CREAT (test code = 35 RATIO [...] code = 2821) 0.335 UIU/ML COMPREHENSIVE METABOLIC [id number] 00:00:00 Test Item Value Reference Range Interpretation Comments GLUCOSE (test code = 2217) 106 MG/DL BUN (test code = 2208) 23 MG/DL CREATININE (test code = 2214) 0.66 MG/DL eGFR AMER. (test code 114 ML/MIN/1.73 = 01446) eGFR NON- AMER. (test 99 ML/MIN/1.73 code = 68972) CALC BUN/CREAT (test code = 35 RATIO [...] code = 2219) 31 U/L COMPREHENSIVE METABOLIC [id number] 00:00:00 Test Item Value Reference Range Interpretation Comments GLUCOSE (test code = 2217) 106 MG/DL BUN (test code = 2208) 23 MG/DL CREATININE (test code = 2214) 0.66 MG/DL eGFR AMER. (test code 114 ML/MIN/1.73 = 73503) eGFR NON- AMER. (test 99 ML/MIN/1.73 code = 81130) CALC BUN/CREAT (test code = 35 RATIO [...] code = 2821) 0.335 UIU/ML COMPREHENSIVE METABOLIC [id number] 00:00:00 Test Item Value Reference Range Interpretation Comments GLUCOSE (test code = 2217) 106 MG/DL BUN (test code = 2208) 23 MG/DL CREATININE (test code = 2214) 0.66 MG/DL eGFR AMER. (test code 114 ML/MIN/1.73 = 94161) eGFR NON- AMER. (test 99 ML/MIN/1.73 code = 22097) CALC BUN/CREAT (test code = 35 RATIO [...] code = 2821) 0.335 UIU/ML COMPREHENSIVE METABOLIC [id number] 00:00:00 Test Item Value Reference Range Interpretation Comments GLUCOSE (test code = 2217) 106 MG/DL BUN (test code = 2208) 23 MG/DL CREATININE (test code = 2214) 0.66 MG/DL eGFR AMER. (test code 114 ML/MIN/1.73 = 87662) eGFR NON- AMER. (test 99 ML/MIN/1.73 code = 72998) CALC BUN/CREAT (test code = 35 RATIO [...] code = 2219) 31 U/L COMPREHENSIVE METABOLIC [id number] 00:00:00 Test Item Value Reference Range Interpretation Comments GLUCOSE (test code = 2217) 106 MG/DL BUN (test code = 2208) 23 MG/DL CREATININE (test code = 2214) 0.66 MG/DL eGFR AMER. (test code 114 ML/MIN/1.73 = 74605) eGFR NON- AMER. (test 99 ML/MIN/1.73 code = 99595) CALC BUN/CREAT (test code = 35 RATIO [...] code = 2821) 0.335 UIU/ML COMPREHENSIVE METABOLIC [id number] 00:00:00 Test Item Value Reference Range Interpretation Comments GLUCOSE (test code = 2217) 103 MG/DL BUN (test code = 2208) 15 MG/DL CREATININE (test code = 2214) 0.77 MG/DL eGFR AMER. (test code 101 ML/MIN/1.73 = 04729) eGFR NON- AMER. (test 87 ML/MIN/1.73 code = 63732) CALC BUN/CREAT (test code = 19 RATIO [...] code = 2219) 24 U/L COMPREHENSIVE METABOLIC [id number] 00:00:00 Test Item Value Reference Range Interpretation Comments GLUCOSE (test code = 2217) 103 MG/DL BUN (test code = 2208) 15 MG/DL CREATININE (test code = 2214) 0.77 MG/DL eGFR AMER. (test code 101 ML/MIN/1.73 = 77860) eGFR NON- AMER. (test 87 ML/MIN/1.73 code = 50550) CALC BUN/CREAT (test code = 19 RATIO [...] code = 2821) 0.424 UIU/ML COMPREHENSIVE METABOLIC [id number] 00:00:00 Test Item Value Reference Range Interpretation Comments GLUCOSE (test code = 2217) 103 MG/DL BUN (test code = 2208) 15 MG/DL CREATININE (test code = 2214) 0.77 MG/DL eGFR AMER. (test code 101 ML/MIN/1.73 = 13803) eGFR NON- AMER. (test 87 ML/MIN/1.73 code = 40669) CALC BUN/CREAT (test code = 19 RATIO [...] code = 2219) 24 U/L COMPREHENSIVE METABOLIC [id number] 00:00:00 Test Item Value Reference Range Interpretation Comments GLUCOSE (test code = 2217) 103 MG/DL BUN (test code = 2208) 15 MG/DL CREATININE (test code = 2214) 0.77 MG/DL eGFR AMER. (test code 101 ML/MIN/1.73 = 81848) eGFR NON- AMER. (test 87 ML/MIN/1.73 code = 63123) CALC BUN/CREAT (test code = 19 RATIO [...] code = 2821) 0.424 UIU/ML COMPREHENSIVE METABOLIC [id number] 00:00:00 Test Item Value Reference Range Interpretation Comments GLUCOSE (test code = 2217) 103 MG/DL BUN (test code = 2208) 15 MG/DL CREATININE (test code = 2214) 0.77 MG/DL eGFR AMER. (test code 101 ML/MIN/1.73 = 77822) eGFR NON- AMER. (test 87 ML/MIN/1.73 code = 63512) CALC BUN/CREAT (test code = 19 RATIO [...] code = 2821) 0.424 UIU/ML COMPREHENSIVE METABOLIC [id number] 00:00:00 Test Item Value Reference Range Interpretation Comments GLUCOSE (test code = 2217) 103 MG/DL BUN (test code = 2208) 15 MG/DL CREATININE (test code = 2214) 0.77 MG/DL eGFR AMER. (test code 101 ML/MIN/1.73 = 74950) eGFR NON- AMER. (test 87 ML/MIN/1.73 code = 65725) CALC BUN/CREAT (test code = 19 RATIO [...] code = 2219) 24 U/L COMPREHENSIVE METABOLIC [id number] 00:00:00 Test Item Value Reference Range Interpretation Comments GLUCOSE (test code = 2217) 103 MG/DL BUN (test code = 2208) 15 MG/DL CREATININE (test code = 2214) 0.77 MG/DL eGFR AMER. (test code 101 ML/MIN/1.73 = 10197) eGFR NON- AMER. (test 87 ML/MIN/1.73 code = 68542) CALC BUN/CREAT (test code = 19 RATIO [...] (test code = 2821) 0.424 UIU/ML CULTURE, [id number] 00:00:00 Test Item Value Reference Range Interpretation Comments CULTURE, URINE (test SPECIMEN NUMBER: code = 58508) [id number] CULTURE, [id number] 00:00:00 Test Item Value Reference Range Interpretation Comments CULTURE, URINE (test SPECIMEN NUMBER: code = 98633) [id number] CULTURE, [id number] 00:00:00 Test Item Value Reference Range Interpretation Comments CULTURE, URINE (test SPECIMEN NUMBER: code = 19663) [id number] CULTURE, [id number] 00:00:00 Test Item Value Reference Range Interpretation Comments CULTURE, URINE (test SPECIMEN NUMBER: code = 88891) [id number] CULTURE, [id number] 00:00:00 Test Item Value Reference Range Interpretation Comments CULTURE, URINE (test SPECIMEN NUMBER: code = 58143) [id number] CULTURE, [id number] 00:00:00 Test Item Value Reference Range Interpretation Comments CULTURE, URINE (test SPECIMEN NUMBER: code = 12385) [id number] CULTURE, [id number] 00:00:00 Test Item Value Reference Range Interpretation Comments CULTURE, URINE (test SPECIMEN NUMBER: code = 86850) [id number] CULTURE, [id number] 00:00:00 Test Item Value Reference Range Interpretation Comments CULTURE, URINE (test SPECIMEN NUMBER: code = 46080) [id number] CULTURE, [id number] 00:00:00 Test Item Value Reference Range Interpretation Comments CULTURE, URINE (test SPECIMEN NUMBER: code = 12830) [id number] CULTURE, [id number] 00:00:00 Test Item Value Reference Range Interpretation Comments CULTURE, URINE (test SPECIMEN NUMBER: code = 44508) [id number] CULTURE, [id number] 00:00:00 Test Item Value Reference Range Interpretation Comments CULTURE, URINE (test SPECIMEN NUMBER: code = 88044) [id number] CULTURE, [id number] 00:00:00 Test Item Value Reference Range Interpretation Comments CULTURE, URINE (test SPECIMEN NUMBER: code = 33036) [id number] CULTURE, [id number] 00:00:00 Test Item Value Reference Range Interpretation Comments CULTURE, URINE (test SPECIMEN NUMBER: code = 36613) [id number] CULTURE, [id number] 00:00:00 Test Item Value Reference Range Interpretation Comments CULTURE, URINE (test SPECIMEN NUMBER: code = 33037) [id number]
[2022-03-12] MEDS ORDERED: DIPHENHYDRAMINE 50 MG/ML VIAL ONE (08:13)
[2022-03-12] MEDS ORDERED: METOCLOPRAMIDE 10 MG/2mL INJ ONE (08:13)
[2022-03-12] MEDS ORDERED: Ringers Lactate 1,000 ML IV ONE (08:13)
[2022-03-12] MEDS ORDERED: KETOROLAC 30 MG/ML INJ ONE (08:13)
[2022-03-12] MEDS ORDERED: KETAMINE HCL 500 MG/5 ML VIAL ONE (08:17)
--- NOTE | 2022-03-12 09:49 | EDPHYS ---
Physician Documentation [facility] Name: Jaimie Amanda Age: 61 yrs Sex: Female : 1960 Arrival Date: 03/12/2022 Time: 07:31 Bed 13 Private MD: ED Physician Zo Zapata HPI: 03/12 08:00 This 61 yrs old Female presents to ER via Ambulatory with complaints of Abdominal Pain. jmm 08:00 The patient presents with abdominal pain in the right upper quadrant, right lower jmm quadrant. This is a 61-year-old female with a history of chronic abdominal pain, hypertension that presents emerged part with complaints of an episode of right-sided abdominal pain which she states is consistent with her chronic pain. Patient states she was unable to rest last night due to the pain. Denies any vomiting, fever, chest pain, shortness of breath.. Historical: - Allergies: 07:35 No Known Allergies; aa5 - PMHx: 07:35 Anxiety; Chronic Abdominal Pain; Hypertensive disorder; Hypothyroidism; low NA; NIDDM; aa5 - PSHx: 07:35 Thyroidectomy; aa5 - Immunization history:: Adult Immunizations unknown. - Social history:: Smoking status: Patient reports the use of cigarette tobacco products, smokes one-half pack cigarettes per day. ROS: 08:00 Constitutional: Negative for fever, chills, and weight loss, Cardiovascular: Negative jmm for chest pain, palpitations, and edema, Respiratory: Negative for shortness of breath, cough, wheezing, and pleuritic chest pain. 08:00 Abdomen/GI: Positive for abdominal pain. 08:00 All other systems are negative. Exam: 08:00 Constitutional: This is a well developed, well nourished patient who is awake, alert, jmm and in no acute distress. Head/Face: atraumatic. Eyes: EOMI, no conjunctival erythema appreciated ENT: Moist Mucus Membranes Neck: Trachea midline, Supple Chest/axilla: Normal chest wall appearance and motion. Cardiovascular: Regular rate and rhythm. No edema appreciated Respiratory: Normal respirations, no respiratory distress appreciated 08:00 Back: Normal ROM Skin: General appearance color normal MS/ Extremity: Moves all extremities, no obvious deformities appreciated, no edema noted to the lower extremities Neuro: Awake and alert Psych: Behavior is normal, Mood is normal, Patient is cooperative and pleasant 08:00 Abdomen/GI: Inspection: abdomen appears normal, Bowel sounds: normal, Palpation: moderate abdominal tenderness, in the right upper quadrant and right lower quadrant. Vital Signs: 07:34 BP 145 / 87; Pulse 85; Resp 16 S; Temp 97.3(TE); Pulse Ox 96% ; Weight 70.31 kg (R); aa5 Height 5 ft. 7 in. (170.18 cm) (R); Pain 9/10; 09:20 BP 186 / 89; Pulse 82; Resp 14; Pulse Ox 99% on R/A; ko1 09:52 BP 172 / 78; Pulse 80; Resp 14; Pulse Ox 99% on R/A; ko1 07:34 Body Mass Index 24.28 (70.31 kg, 170.18 cm) aa5 MDM: 08:03 Patient medically screened. [facility] 09:45 Data reviewed: vital signs, nurses notes. Counseling: I had a detailed discussion with hilton the patient and/or guardian regarding: the historical points, exam findings, and any diagnostic results supporting the discharge/admit diagnosis, the need for outpatient follow up, to return to the emergency department if symptoms worsen or persist or if there are any questions or concerns that arise at home. ED course: Pain is alleviated in the ED. I do not currently suspect an acute intra-abdominal process. Character pain is similar to numerous previous episodes. Patient will return to the ED if change in character develops.. 03/12 08:00 Order name: IV Saline Lock; Complete Time: 08:[address] [facility] Administered Medications: 08:56 Drug: Lactated Ringers Solution 1000 ml Route: IV; Rate: 1000 bolus; Site: left ko1 antecubital; 09:54 Follow up: Response: No adverse reaction; IV Status: Completed infusion; IV converted ko1 to saline lock; IV Intake: 1000ml 08:56 Drug: Ketamine 20 mg Route: IVP; Site: left antecubital; ko1 08:57 Drug: Reglan (metoCLOPramide) 20 mg Route: IVP; Site: left antecubital; ko1 09:54 Follow up: Response: No adverse reaction ko1 09:03 Drug: Ketorolac 30 mg Route: IVP; Site: left antecubital; ko1 09:53 Follow up: Response: No adverse reaction ko1 :53 Follow up: Response: No adverse reaction; Pain is decreased ko1 09:09 Drug: diphenhydrAMINE 25 mg Route: IVP; Site: left antecubital; ko1 09:53 Follow up: Response: No adverse reaction ko1 Disposition Summary: 03/12/22 09:48 Discharge Ordered Location: Home jmm Condition: Stable jmm Diagnosis - Abdominal pain, unspecified - Chronic jmm Followup: [facility] - With: Private Physician - When: 2 - 3 days - Reason: Recheck today's complaints, Continuance of care, Re-evaluation by your physician Discharge Instructions: - Discharge Summary Sheet jmm - Abdominal Pain, Adult jmm Forms: - Medication Reconciliation Form [facility] - Thank You Letter [facility] - Antibiotic Education m - Prescription Opioid Use [facility] Signatures: Dispatcher [employer] EDMS René Brown PA PA jmm Calderon, Audri, RN RN aa5 Vy Cortez RN RN ko1 Corrections: (The following items were deleted from the chart) 08:54 08:00 COMPREHENSIVE METABOLIC PANEL+C.LAB.BRZ ordered. EDMS EDMS 08:54 08:00 LIPASE+C.LAB.BRZ ordered. EDMD EDMS 08:55 08:00 CBC+H.LAB.BRZ ordered. [facility] EDMS 08:57 08:00 Labs collected and sent ordered. hilton ko1
--- NOTE | 2022-03-12 09:49 | ER ---
Nurse's Notes [facility] Name: Jaimie Amanda Age: 61 yrs Sex: Female : 1960 Arrival Date: 03/12/2022 Time: 07:31 Bed 13 Private MD: Diagnosis: Abdominal pain, unspecified-Chronic Presentation: 03/12 07:34 Chief complaint: Patient states: "I've been up all night with stomach pains". Pt also aa5 reports nausea, denies vomiting, denies diarrhea. Coronavirus screen: At this time, the client does not indicate any symptoms associated with coronavirus-19. Ebola Screen: Patient denies travel to an Ebola-affected area in the 21 days before illness onset. Initial Sepsis Screen: Does the patient meet any 2 criteria? No. Patient's initial sepsis screen is negative. Does the patient have a suspected source of infection? No. Patient's initial sepsis screen is negative. Risk Assessment: Do you want to hurt yourself or someone else? Patient reports no desire to harm self or others. Onset of symptoms was March 2021. 07:34 Method Of Arrival: Ambulatory aa5 07:34 Acuity: ZHEN 3 aa5 Historical: - Allergies: 07:35 No Known Allergies; aa5 - PMHx: 07:35 Anxiety; Chronic Abdominal Pain; Hypertensive disorder; Hypothyroidism; low NA; NIDDM; aa5 - PSHx: 07:35 Thyroidectomy; aa5 - Immunization history:: Adult Immunizations unknown. - Social history:: Smoking status: Patient reports the use of cigarette tobacco products, smokes one-half pack cigarettes per day. Screenin:00 [facility] ED Fall Risk Assessment (Adult) History of falling in the last 3 months, ko1 including since admission No falls in past 3 months (0 pts) Confusion or Disorientation No (0 pts) Intoxicated or Sedated No (0 pts) Impaired Gait No (0 pts) Mobility Assist Device Used No (0 pt) Altered Elimination No (0 pt) Score/Fall Risk Level 0 - 2 = Low Risk Oriented to surroundings, Maintained a safe environment, Educated pt \\T\\ family on fall prevention, incl call for assistance when getting out of bed, Assessed \\T\\ reinforced patient's understanding of fall precautions, Provided non-skid footwear, Hourly rounding (assess needs \\T\\ fall precautionary measures) done, Used ambulatory aids as needed (educated on \\T\\ assisted with), Used gait belt as appropriate. Abuse screen: Denies threats or abuse. Denies injuries from another. Nutritional screening: No deficits noted. Tuberculosis screening: No symptoms or risk factors identified. Assessment: 08:00 General: Appears in no apparent distress. uncomfortable, Behavior is drowsy. Pain: ko1 Complains of pain in abdomen. Neuro: No deficits noted. Cardiovascular: No deficits noted. Respiratory: No deficits noted. GI: Bowel sounds present X 4 quads. Abd is soft X 4 quads Patient currently denies constipation, diarrhea, indigestion, intolerance of fluids, intolerance of food, nausea, vomiting. : No deficits noted. EENT: No deficits noted. Derm: No deficits noted. Musculoskeletal: No deficits noted. 08:15 Reassessment: Asked patient if she had seen a GI physician about her reoccuring ko1 abdominal pain, she stated that she had seen Dr Forrester and he gave her medication to take but it hasn't worked. She states she has an appointment on Thursday for an upper GI. Informed her that until she finds out the underlying problem and follows GI recommendations she will continue to have symptoms. Patient verbalized understanding. Vital Signs: 07:34 BP 145 / 87; Pulse 85; Resp 16 S; Temp 97.3(TE); Pulse Ox 96% ; Weight 70.31 kg (R); aa5 Height 5 ft. 7 in. (170.18 cm) (R); Pain 9/10; 09:20 BP 186 / 89; Pulse 82; Resp 14; Pulse Ox 99% on R/A; ko1 09:52 BP 172 / 78; Pulse 80; Resp 14; Pulse Ox 99% on R/A; ko1 07:34 Body Mass Index 24.28 (70.31 kg, 170.18 cm) aa5 ED Course: 07:31 Patient arrived in ED. rg4 07:33 Arm band placed on. aa5 07:35 Triage completed. aa5 07:38 Vy Cortez, RN is Primary Nurse. ko1 07:58 René Brown PA is PHCP. [facility] 07:58 Zo Zapata MD is Attending Physician. [facility] 08:00 Patient has correct armband on for positive identification. Bed in low position. Call ko1 light in reach. Side rails up X 1. Pulse ox on. NIBP on. 08:00 No provider procedures requiring assistance completed. ko1 08:41 Missed attempt(s): 22 gauge in right antecubital area. rs5 08:45 Inserted saline lock: 18 gauge in left antecubital area, using aseptic technique. ko1 09:58 IV discontinued, intact, bleeding controlled, No redness/swelling at site. Pressure ko1 dressing applied. Administered Medications: 08:56 Drug: Lactated Ringers Solution 1000 ml Route: IV; Rate: 1000 bolus; Site: left ko1 antecubital; 09:54 Follow up: Response: No adverse reaction; IV Status: Completed infusion; IV converted ko1 to saline lock; IV Intake: 1000ml 08:56 Drug: Ketamine 20 mg Route: IVP; Site: left antecubital; ko1 08:57 Drug: Reglan (metoCLOPramide) 20 mg Route: IVP; Site: left antecubital; ko1 09:54 Follow up: Response: No adverse reaction ko1 09:03 Drug: Ketorolac 30 mg Route: IVP; Site: left antecubital; ko1 09:53 Follow up: Response: No adverse reaction ko1 09:53 Follow up: Response: No adverse reaction; Pain is decreased ko1 09:09 Drug: diphenhydrAMINE 25 mg Route: IVP; Site: left antecubital; ko1 09:53 Follow up: Response: No adverse reaction ko1 Medication: 08:00 VIS not applicable for this client. ko1 Intake: 09:54 IV: 1000ml; Total: 1000ml. ko1 Outcome: 09:48 Discharge ordered by . hilton 09:58 Discharged to home ambulatory, with family. ko1 09:58 Condition: improved 09:58 Discharge instructions given to patient, Instructed on discharge instructions, follow up and referral plans. keeping GI appointment 09:58 Patient left the ED. ko1 Signatures: René Brown PA PA jmm Calderon, Audri, RN RN aa5 Alejandra Ramirez rg4 Vy Cortez RN RN ko1 Christ Jimenez rs5
[2022-03-12 10:08] VITALS: TEMP 97.3
[2022-03-12 10:23] VITALS: O2SAT 99
[2022-03-12 10:24] VITALS: BP 172/78
== END 2022-03-12 09:58 | disposition home or self-care (01) ==
LOC: ER 07:28
DX: R10.11 Right upper quadrant pain (principal); R10.31 Right lower quadrant pain; F17.210 Nicotine dependence, cigarettes, uncomplicated; I10 Essential (primary) hypertension
CPT/HCPCS: 96361; 96375; 96374; 99283; J2765; J1200; J7120

== ENCOUNTER 2022-03-19 05:04 | Emergency (ER) | payer OTHER ==
--- OUTSIDE RECORDS SUMMARY | 2022-03-19 05:17 | XMS REPORT | Continuity of Care Document ---
:1960 Author Organization [facility] t Address [address] [place] [address] Care Team Providers Name Role Phone Sharpless Primary Care Physician MATT SIMPSON Attending Clinician Unavailable MATT SIMPSON Attending Clinician Unavailable Doctor Unassigned, [place] Attending Clinician Unavailable WALLY KRISHNAMURTHY Attending Clinician Unavailable Natacha Brewster Attending Clinician Payers Payer Name Policy Type Policy Number Effective Date Expiration Date Sarina castelan [facility] [id number] 2017 00:00:00 PLUS Problems This patient has [...] s TRANSDER - ity of MAL 00:00: [place] [facility] ACETAMIN DRUG Active Other-Cmnt Univ ers OPHEN INGREDI - ity of 00:00: [place] [facility] Hmg-Coa Propensi Inactiv Reductas ty to e 2-28 e adverse 00:00: Inhibito reaction 00 rs to drug Nitrogly Propensi Active 2017-03 cerin ty to 1-08 adverse 00:00: reaction 00 to drug Social History Social Habit Start Date Stop Date Quantity Comments Source Alcohol intake 2016-05-01 2016-05-01 Current [facility] es 00:00:00 00:00:00 non-drinker of Medical nter alcohol (finding) Sex Ass[birth year] At [birth year] [facility] 00:00:00 00:00:00 [facility] Smoking Status Start Date Stop Date Source [...] 00 ONDANSETRON 2021-03 No 4 4MG Tablets - 00:00: 00 TAKE 2021-03 No TABLET BY 1-04 MOUTH DAILY 00:00: AT BEDTIME 00 TEMAZEPAM 2021-03 No 30 MG CAPS - 00:00: 00 TAKE 2021-03 No TABLET BY [...] capsule 00:00: 00 OXcarbazepi 2017-0 Yes 600mg Q.[id number] Take [address] [facility] [address] ne 2-23 [id number] [facility] (TR[facility]AL) 10:23: 3D mouth 3 Med ical 600 MG 59 (three) Center tablet times daily. PARoxetine 2017-0 Yes 40mg QD Take [address] (PAXIL) 40 2-23 by mouth [facility] tablet 10:23: nightly. Medi anjelica 59 Center OXcarbazepi 2017-0 Yes 600mg Q.86216348 Take [address] ne 2-23 [id number] [facility] (TRILEPTAL) 10:23: 3D mouth 3 Med ical 600 MG 59 (three) Center tablet times daily. PARoxetine 2017-0 Yes 40mg QD Take [address] (PAXIL) 40 2-23 by [facility] tablet 10:23: nightly. [address] OXcarbazepi 2017-0 Yes 600mg Q.37588229 Take [address] ne 2-23 [id number] [facility] (TRILEPTAL) 10:23: 3D mouth 3 Med ical 600 MG 59 (three) Center tablet times daily. PARoxetine 2017-0 Yes 40mg QD Take [address] (PAXIL) 40 2-23 [facility] tablet 10:23: nightly. [address] 2017-0 Yes 600mg Q.47743927 Take [address] ne 2-23 [id number] [facility] (TRILEPTAL) 10:23: 3D mouth 3 Med ical 600 MG 59 (three) Center tablet times daily. PARoxetine 2017-0 Yes 40mg QD Take [address] (PAXIL) 40 2-23 by [facility] tablet 10:23: nightly. [address] 2017-0 Yes 600mg Q.93416749 Take [address] ne 2-23 [id number] [facility] (TRILEPTAL) 10:23: 3D mouth 3 Med ical 600 MG 59 (three) Center tablet times daily. PARoxetine 2017-0 Yes 40mg QD Take [address] (PAXIL) 40 2-23 by [facility] tablet 10:23: nightly. [address] OXcarbazepi 2017-0 Yes 600mg Q.28268397 Take [address] ne 2-23 [id number] [facility] (TRILEPTAL) 10:23: 3D mouth 3 Med ical 600 MG 59 (three) Center tablet times daily. PARoxetine 2017-0 Yes 40mg QD Take [address] (PAXIL) 40 2-23 by [facility] tablet 10:23: nightly. [address] 2017-0 Yes 600mg Q.03682800 Take [address] ne 2-23 [id number] [facility] (TRILEPTAL) 10:23: 3D mouth 3 Med ical 600 MG 59 (three) Center tablet times daily. PARoxetine 2017-0 Yes 40mg QD Take [address] (PAXIL) 40 2-23 by [facility] tablet 10:23: nightly. [address] 2017-0 Yes 600mg Q.10837241 Take [address] ne 2-23 [id number] [facility] (TRILEPTAL) 10:23: 3D mouth 3 Med ical 600 MG 59 (three) Center tablet times daily. PARoxetine 2017-0 Yes 40mg QD Take [address] (PAXIL) 40 2-23 by [facility] tablet 10:23: nightly. [address] 2017-0 Yes 600mg Q.92677532 Take [address] ne 2-23 [id number] [facility] (TRILEPTAL) 10:23: 3D mouth 3 Med ical 600 MG 59 (three) Center tablet times daily. PARoxetine 2017-0 Yes 40mg QD Take [address] (PAXIL) 40 2-23 by [facility] tablet 10:23: nightly. [address] 2017-0 Yes 600mg Q.34457671 Take [address] ne 2-23 [id number] [facility] (TRILEPTAL) 10:23: 3D mouth 3 Med ical 600 MG 59 (three) Center tablet times daily. PARoxetine 2017-0 Yes 40mg QD Take [address] (PAXIL) 40 2-23 by [facility] tablet 10:23: nightly. [address] 2017-0 Yes 600mg Q.41528260 Take [address] ne 2-23 [id number] [facility] (TRILEPTAL) 10:23: 3D mouth 3 Med ical 600 MG 59 (three) Center tablet times daily. PARoxetine 2017-0 Yes 40mg QD Take [address] (PAXIL) 40 2-23 by [facility] tablet 10:23: nightly. [address] OXcarbazepi 2017-0 Yes 600mg Q.27038401 Take [address] ne 2-23 [id number] [facility] (TRILEPTAL) 10:23: 3D mouth 3 Med ical 600 MG 59 (three) Center tablet times daily. PARoxetine 2017-0 Yes 40mg QD Take [address] (PAXIL) 40 2-23 by mouth [facility] tablet 10:23: nightly. [address] OXcarbazepi 2017-0 Yes 600mg Q.57947647 Take [address] ne 2-23 5223635576 [facility] (TRILEPTAL) 10:23: 3D mouth 3 Med ical 600 MG 59 (three) Center tablet times daily. PARoxetine 2017-0 Yes 40mg QD Take [address] (PAXIL) 40 2-23 by mouth [facility] tablet 10:23: nightly. [address] OXcarbazepi 2017-0 Yes 600mg Q.13377529 Take [address] ne 2-23 [id number] mg [facility] (TRILEPTAL) 10:23: 3D mouth 3 Med ical 600 MG 59 (three) Center tablet times daily. PARoxetine 2017-0 Yes 40mg QD Take [address] (PAXIL) 40 2-23 by mouth [facility] tablet 10:23: nightly. [address] OXcarbazepi 2017-0 Yes 600mg Q.43857986 Take [address] ne 2-23 [id number] mg by [facility] (TRILEPTAL) 10:23: 3D mouth 3 Med ical 600 MG 59 (three) Center tablet times daily. OXcarbazepi 2017-0 Yes 600mg Q.73164891 Take [address] ne 2-23 [id number] mg [facility] (TRILEPTAL) 10:23: 3D mouth 3 Med ical 600 MG 59 (three) Center tablet times daily. PARoxetine 2017-0 Yes 40mg QD Take [address] (PAXIL) 40 2-23 by [facility] tablet 10:23: nightly. [address] OXcarbazepi 2017-0 Yes 600mg Q.73480567 Take [address] ne 2-23 [id number] [facility] (TRILEPTAL) 10:23: 3D mouth 3 Med ical 600 MG 59 (three) Center tablet times daily. PARoxetine 2017-0 Yes 40mg QD Take [address] (PAXIL) 40 2-23 by [facility] tablet 10:23: nightly. [address] OXcarbazepi 2017-0 Yes 600mg Q.67324955 Take [address] ne 2-23 [id number] [facility] (TRILEPTAL) 10:23: 3D mouth 3 Med ical 600 MG 59 (three) Center tablet times daily. PARoxetine 2017-0 Yes 40mg QD Take [address] (PAXIL) 40 2-23 by [facility] tablet 10:23: nightly. [address] PARoxetine 2017-0 Yes 40mg QD Take [address] (PAXIL) 40 2-23 by [facility] tablet 10:23: nightly. [address] OXcarbazepi 2017-0 Yes 600mg Q.81538768 Take [address] ne 2-23 [id number] [facility] (TRILEPTAL) 10:23: 3D mouth 3 Med ical 600 MG 59 (three) Center tablet times daily. PARoxetine 2017-0 Yes 40mg QD Take [address] (PAXIL) 40 2-23 by mouth [facility] tablet 10:23: nightly. [address] OXcarbazepi 2017-0 Yes 600mg Q.00576135 Take [address] ne 2-23 [id number] mg [facility] (TRILEPTAL) 10:23: 3D mouth 3 Med ical 600 MG 59 (three) Center tablet times daily. PARoxetine 2017-0 Yes 40mg QD Take [address] (PAXIL) 40 2-23 by [facility] tablet 10:23: nightly. [address] LORazepam 2017-0 Yes 1mg Take 1 [...] Goal Plan of Care Note [code = 34577-4] Goal Plan of Care Note [code = 63659-4] Goal Plan of Care Note [code = 05384-8] Goal Plan of Care Note [code = 38629-5] Goal Plan of Care Note [code = 47880-9] Goal Plan of Care Note [code = 80028-5] Goal Plan of Care Note [code = 57241-2] Goal Plan of Care Note [code = 37272-4] Goal Plan of Care Note [code = 74524-3] Goal Plan of Care Note [code = 74410-1] Goal Plan of Care Note [code = 92585-1] Goal Plan of Care Note [code = 39883-0] Goal Plan of Care Note [code = 67418-4] Goal Plan of Care Note [code = 60029-2] Goal Plan of Care Note [code = 40564-8] Goal Plan of Care Note [code = 84664-4] Goal Plan of Care Note [code = 29729-6] Goal Plan of Care Note [code = 14452-0] Goal Plan of Care Note [code = 01261-5] Goal Plan of Care Note [code = 34650-9] Goal Plan of Care Note [code = 81822-1] Goal Plan of Care Note [code = 28266-8] Goal Plan of Care Note [code = 20150-6] Goal Plan of Care Note [code = 73217-6] Goal Plan of Care Note [code = 85490-6] Goal Plan of Care Note [code = 40702-2] Goal Plan of Care Note [code = 98023-5] Goal Plan of Care Note [code = 24760-6] Goal Plan of Care Note [code = 96471-5] Goal Plan of Care Note [code = 63888-2] Goal Plan of Care Note [code = 47799-4] Goal Plan of Care Note [code = 10184-4] Goal Plan of Care Note [code = 32643-5] Goal Plan of Care Note [code = 06119-8] Goal Plan of Care Note [code = 33801-2] Goal Plan of Care Note [code = 02674-8] Goal Plan of Care Note [code = 79781-5] Goal Plan of Care Note [code = 87316-9] Goal Plan of Care Note [code = 43309-7] Goal Plan of Care Note [code = 28493-9] Goal Plan of Care Note [code = 40698-3] Goal Plan of Care Note [code = 61184-6] Goal Plan of Care Note [code = 68893-6] Goal Plan of Care Note [code = 78560-9] Goal Plan of Care Note [code = 46113-9] Goal Plan of Care Note [code = 87997-8] Goal Plan of Care Note [code = 89038-7] Goal Plan of Care Note [code = 65651-0] Goal Plan of Care Note [code = 12853-7] Goal Plan of Care Note [code = 96107-7] Goal Plan of Care Note [code = 12469-5] Goal Plan of Care Note [code = 11512-0] Goal Plan of Care Note [code = 94882-5] Goal Plan of Care Note [code = 97888-3] Goal Plan of Care Note [code = 96816-9] Goal Plan of Care Note [code = 80592-7] Goal Plan of Care Note [code = 95348-2] Goal Plan of Care Note [code = 29294-7] Goal Plan of Care Note [code = 89512-9] Goal Plan of Care Note [code = 27555-0] Goal Plan of Care Note [code = 64652-0] Goal Plan of Care Note [code = 38692-0] Goal Plan of Care Note [code = 54248-7] Goal Plan of Care Note [code = 00238-9] Goal Plan of Care Note [code = 55984-8] Goal Plan of Care Note [code = 28661-7] Goal Plan of Care Note [code = 72052-2] Goal Plan of Care Note [code = 84200-6] Goal Plan of Care Note [code = 95049-1] Goal Plan of Care Note [code = 06745-2] Goal Plan of Care Note [code = 78548-6] Goal Plan of Care Note [code = 83211-9] Goal Plan of Care Note [code = 55208-3] Goal Plan of Care Note [code = 37046-1] Goal Plan of Care Note [code = 81747-1] Goal Plan of Care Note [code = 47815-4] Goal Plan of Care Note [code = 06706-8] Goal Plan of Care Note [code = 02761-0] Goal Plan of Care Note [code = 20238-5] Goal Plan of Care Note [code = 30800-0] Goal Plan of Care Note [code = 58171-5] Goal Plan of Care Note [code = 52612-4] Goal Plan of Care Note [code = 84489-9] Goal Plan of Care Note [code = 76413-6] Goal Plan of Care Note [code = 50241-0] Goal Plan of Care Note [code = 58898-4] Goal Plan of Care Note [code = 33121-8] Goal Plan of Care Note [code = 05445-7] Goal Plan of Care Note [code = 17441-2] Goal Plan of Care Note [code = 65625-1] Goal Plan of Care Note [code = 56796-1] Goal Plan of Care Note [code = 55718-3] Goal Plan of Care Note [code = 31648-4] Goal Plan of Care Note [code = 85197-0] Goal Plan of Care Note [code = 20324-1] Goal Plan of Care Note [code = 21915-6] Goal Plan of Care Note [code = 67206-2] Goal Plan of Care Note [code = 65596-0] Goal Plan of Care Note [code = 92425-7] Goal Plan of Care Note [code = 77812-4] Goal Plan of Care Note [code = 60152-1] Goal Plan of Care Note [code = 07857-7] Goal Plan of Care Note [code = 78638-0] Goal Plan of Care Note [code = 25206-0] Goal Plan of Care Note [code = 28029-6] Goal Plan of Care Note [code = 17695-5] Goal Plan of Care Note [code = 46762-1] Goal Plan of Care Note [code = 56633-8] Goal Plan of Care Note [code = 95759-1] Goal Plan of Care Note [code = 53553-4] Goal Plan of Care Note [code = 96531-6] Goal Plan of Care Note [code = 60888-6] Goal Plan of Care Note [code = 12661-5] Goal Plan of Care Note [code = 09481-1] Goal Plan of Care Note [code = 67903-7] Goal Plan of Care Note [code = 16245-8] Goal Plan of Care Note [code = 23614-9] Goal Plan of Care Note [code = 96547-9] Goal Plan of Care Note [code = 79199-4] Goal Plan of Care Note [code = 25437-2] Goal Plan of Care Note [code = 35672-5] Goal Plan of Care Note [code = 27468-3] Goal Plan of Care Note [code = 12983-7] Goal Plan of Care Note [code = 60082-0] Goal Plan of Care Note [code = 82721-4] Goal Plan of Care Note [code = 97893-0] Goal Plan of Care Note [code = 63752-9] Goal Plan of Care Note [code = 62824-4] Goal Plan of Care Note [code = 99664-6] Goal Plan of Care Note [code = 26037-5] Goal Plan of Care Note [code = 23570-8] Goal Plan of Care Note [code = 21361-0] Goal Plan of Care Note [code = 26449-4] Goal Plan of Care Note [code = 60071-8] Goal Plan of Care Note [code = 14249-1] Goal Plan of Care Note [code = 77109-7] Goal Plan of Care Note [code = 90303-8] Goal Plan of Care Note [code = 54730-8] Goal Plan of Care Note [code = 64224-2] Goal Plan of Care Note [code = 56493-8] Goal Plan of Care Note [code = 08284-6] Goal Plan of Care Note [code = 68956-6] Goal Plan of Care Note [code = 88549-4] Goal Plan of Care Note [code = 60321-4] Goal Plan of Care Note [code = 26458-0] Goal Plan of Care Note [code = 47781-6] Goal Plan of Care Note [code = 20350-0] Goal Plan of Care Note [code = 32585-5] Goal Plan of Care Note [code = 39155-0] Goal Plan of Care Note [code = 69200-2] Goal Plan of Care Note [code = 49943-6] Goal Plan of Care Note [code = 60136-3] Goal Plan of Care Note [code = 68841-4] Goal Plan of Care Note [code = 28776-5] Goal Plan of Care Note [code = 18611-4] Goal Plan of Care Note [code = 96803-7] Goal Plan of Care Note [code = 87120-1] Goal Plan of Care Note [code = 16496-4] Goal Plan of Care Note [code = 17043-7] Goal Plan of Care Note [code = 34616-2] Goal Plan of Care Note [code = 69702-5] Goal Plan of Care Note [code = 05737-2] Goal Plan of Care Note [code = 96312-3] Goal Plan of Care Note [code = 29127-8] Goal Plan of Care Note [code = 93385-4] Goal Plan of Care Note [code = 66123-2] Goal Plan of Care Note [code = 32707-7] Goal Plan of Care Note [code = 56890-6] Goal Plan of Care Note [code = 29910-2] Goal Plan of Care Note [code = 45900-3] Goal Plan of Care Note [code = 15923-0] Goal Plan of Care Note [code = 32027-5] Goal Plan of Care Note [code = 39493-7] Goal Plan of Care Note [code = 74938-9] Goal Plan of Care Note [code = 51792-6] Goal Plan of Care Note [code = 91774-5] Goal Plan of Care Note [code = 93756-9] Goal Plan of Care Note [code = 29629-4] Goal Plan of Care Note [code = 50198-6] Goal Plan of Care Note [code = 09013-9] Goal Plan of Care Note [code = 46484-2] Goal Plan of Care Note [code = 11431-8] Goal Plan of Care Note [code = 46551-5] Goal Plan of Care Note [code = 08100-1] Goal Plan of Care Note [code = 91577-2] Goal Plan of Care Note [code = 87289-3] Goal Plan of Care Note [code = 58115-9] Goal Plan of Care Note [code = 55421-7] Goal Plan of Care Note [code = 83756-1] Goal Plan of Care Note [code = 83841-4] Goal Plan of Care Note [code = 64175-0] Goal Plan of Care Note [code = 27047-1] Goal Plan of Care Note [code = 87730-5] Goal Plan of Care Note [code = 46595-5] Goal Plan of Care Note [code = 74452-7] Goal Plan of Care Note [code = 51220-7] Goal Plan of Care Note [code = 37128-1] Goal Plan of Care Note [code = 61303-1] Goal Plan of Care Note [code = 64041-7] Goal Plan of Care Note [code = 65257-3] Goal Plan of Care Note [code = 01934-6] Goal Plan of Care Note [code = 22042-8] Goal Plan of Care Note [code = 68644-1] Goal Plan of Care Note [code = 09936-4] Goal Plan of Care Note [code = 60131-6] Goal Plan of Care Note [code = 50569-0] Goal Plan of Care Note [code = 61685-7] Goal Plan of Care Note [code = 64934-6] Encounters Start End Encounter Admission Attending Care Care Encounter Source Date/Time Date/Time Type Type Clinicians Facility Department ID 2021-06-01 Outpatient [facility] [id number] [place] 01:36:29 [id number] [facility] 2022-02-11 2022-02-11 Outpatient [facility]FA SFA [id number] 022 Cristian 09:04:48 09:04:48 1206 F Jerman 2022-02-10 2022-02-10 Outpatient SFA SFA [id number] 022 Cristian 09:29:34 09:29:34 1205 F Jerman 2022-02-10 2022-02-10 Outpatient [id number] 2f22b0-3 00:00:00 00:00:00 Visit 4089-4cab 089-4cab-9 -1ep4-x9s bf5-k2r882 160kdtc54 bafa93 2022-01-10 2022-01-10 Outpatient SFA SFA [id number] 022 Cristian 09:16:14 09:16:14 1104 F Jerman 2022-01-10 2022-01-10 Outpatient p6vqkeo4- [id number] f2 accaa6-a 00:00:00 00:00:00 Visit aca9-4c83 ca9-4c83-a -f3cq-ti9 7eb-bc13f3 9y2p212n7 f032f9 2021-12-19 2021-12-19 Outpatient [facility] [id number] 022 Cristian 16:11:31 16:11:31 1013 F Jerman 2021-12-19 2021-12-19 Outpatient [id number] 466cae-a 00:00:00 00:00:00 Visit h452-942n 770-441f-a -adae-62b amelia-62bace jnzlw80pp fd81af 2021-09-17 2021-09-17 Outpatient fpg3hrdu- [id number] aa o1vccs-2 00:00:00 00:00:00 Visit 935a-4f50 35a-4f50-b -x29b-o0n 77d-c2ba85 w560040o8 1264a6 2020-08-03 2020-08-03 Outpatient MATT VÁSQUEZ [facility] [id number] Univers 10:00:00 10:00:00 MATT SIMPSON [facility] 2020-07-25 2020-07-25 Orders Doctor FISH [id number] 00:00:00 00:00:00 Only Unassigned, BK 350.1.13.10 [place] [facility] 4.2.7.2.686 [id number] 2019-09-26 2019-09-26 Outpatient Bertin KRISHNAMURTHY [facility] [id number] Univers 16:00:00 16:00:00 WALLY [facility] 2018-10-21 2018-10-21 [facility] [id number] 00:00:00 00:00:00 Natacha Nguyen 350.1.13.10 [place] 4.2.7.2.686 [facility] [id number] [facility] 204 Building Results Test Description Test Time Test Comments Results Result Comments Source TSH, THIRD GENERATION 2021-06-27 05:15:49 Test Item Value Reference Range Interpretation Comme nts TSH, THIRD GENERATION (test code = 2821) 2.080 UIU/ML 0.400-4.100 HEMOGLOBIN [id number] 03:46:00 Test Item Value Reference Range Interpretation Comments HEMOGLOBIN A1c (test 6.6 % 4.2-5.6 H [employer] DIABETES code = 67494) ASSOCIATION IDELINES FOR HGB A1C: PREDIABETES/INC REASED [...] INDICATED, ALL TESTING PER FORMED ATCLINICAL PATH [facility], [facility]. [address] [place] [address] 8448 LABORATORY DIRE CTOR: DIANA RUSS M.D. CLIA NUMBER [id number] [facility] [place]. [id number] LIPID [id number] 02:59:52 Test Item Value Reference Range Interpretation [...] MOREINFORMATION , SEE CLIENT ANNOUNCE MENT AT [email or web address] RISK RATIO LDL/HDL 4.02 RATIO <3.22 H (test code = 2238) [id number] 00:00:00 Test Item Value Reference Range Interpretation Comments TSH, THIRD GENERATION (test code 2.080 UIU/ML = 2821) [id number] 00:00:00 Test Item Value Reference Range Interpretation Comments TSH, THIRD GENERATION (test code 2.080 UIU/ML = 2821) [id number] 00:00:00 Test Item Value Reference Range Interpretation Comments TSH, THIRD GENERATION (test code 2.080 UIU/ML = 2821) LIPID [id number] 00:00:00 Test Item Value Reference Range Interpretation Comments CHOLESTEROL (test code = 2210) 292 MG/DL TRIGLYCERIDES (test code = 2232) 184 MG/DL HDL CHOLESTEROL (test code = 2220) 51 MG/DL CALC LDL CHOL (test code = 2237) 205 MG/DL RISK RATIO LDL/HDL (test code = 4.02 RATIO 2238) LIPID [id number] 00:00:00 Test Item Value Reference Range Interpretation Comments CHOLESTEROL (test code = 2210) 292 MG/DL TRIGLYCERIDES (test code = 2232) 184 MG/DL HDL CHOLESTEROL (test code = 2220) 51 MG/DL CALC LDL CHOL (test code = 2237) 205 MG/DL RISK RATIO LDL/HDL (test code = 4.02 RATIO 2238) HEMOGLOBIN [id number] 00:00:00 Test Item Value Reference Range Interpretation Comments HEMOGLOBIN A1c (test code = 65885) 6.6 % HEMOGLOBIN [id number] 00:00:00 Test Item Value Reference Range Interpretation Comments HEMOGLOBIN A1c (test code = 70954) 6.6 % HEMOGLOBIN [id number] 00:00:00 Test Item Value Reference Range Interpretation Comments HEMOGLOBIN A1c (test code = 45596) 6.6 % [id number] 00:00:00 Test Item Value Reference Range Interpretation Comments TSH, THIRD GENERATION (test code 2.080 UIU/ML = 2821) [id number] 00:00:00 Test Item Value Reference Range Interpretation Comments TSH, THIRD GENERATION (test code 2.080 UIU/ML = 2821) [id number] 00:00:00 Test Item Value Reference Range Interpretation Comments TSH, THIRD GENERATION (test code 2.080 UIU/ML = 2821) LIPID [id number] 00:00:00 Test Item Value Reference Range Interpretation Comments CHOLESTEROL (test code = 2210) 292 MG/DL TRIGLYCERIDES (test code = 2232) 184 MG/DL HDL CHOLESTEROL (test code = 2220) 51 MG/DL CALC LDL CHOL (test code = 2237) 205 MG/DL RISK RATIO LDL/HDL (test code = 4.02 RATIO 2238) LIPID [id number] 00:00:00 Test Item Value Reference Range Interpretation Comments CHOLESTEROL (test code = 2210) 292 MG/DL TRIGLYCERIDES (test code = 2232) 184 MG/DL HDL CHOLESTEROL (test code = 2220) 51 MG/DL CALC LDL CHOL (test code = 2237) 205 MG/DL RISK RATIO LDL/HDL (test code = 4.02 RATIO 2238) HEMOGLOBIN [id number] 00:00:00 Test Item Value Reference Range Interpretation Comments HEMOGLOBIN A1c (test code = 73410) 6.6 % HEMOGLOBIN [id number] 00:00:00 Test Item Value Reference Range Interpretation Comments HEMOGLOBIN A1c (test code = 29958) 6.6 % HEMOGLOBIN [id number] 00:00:00 Test Item Value Reference Range Interpretation Comments HEMOGLOBIN A1c (test code = 26629) 6.6 % [id number] 00:00:00 Test Item Value Reference Range Interpretation Comments TSH, THIRD GENERATION (test code 2.080 UIU/ML = 2821) [id number] 00:00:00 Test Item Value Reference Range Interpretation Comments TSH, THIRD GENERATION (test code 2.080 UIU/ML = 2821) LIPID [id number] 00:00:00 Test Item Value Reference Range Interpretation Comments CHOLESTEROL (test code = 2210) 292 MG/DL TRIGLYCERIDES (test code = 2232) 184 MG/DL HDL CHOLESTEROL (test code = 2220) 51 MG/DL CALC LDL CHOL (test code = 2237) 205 MG/DL RISK RATIO LDL/HDL (test code = 4.02 RATIO 2238) HEMOGLOBIN [id number] 00:00:00 Test Item Value Reference Range Interpretation Comments HEMOGLOBIN A1c (test code = 93482) 6.6 % HEMOGLOBIN [id number] 00:00:00 Test Item Value Reference Range Interpretation Comments HEMOGLOBIN A1c (test code = 66048) 6.6 % [id number] 00:00:00 Test Item Value Reference Range Interpretation Comments TSH, THIRD GENERATION (test code 2.080 UIU/ML = 2821) [id number] 00:00:00 Test Item Value Reference Range Interpretation Comments TSH, THIRD GENERATION (test code 2.080 UIU/ML = 2821) [id number] 00:00:00 Test Item Value Reference Range Interpretation Comments TSH, THIRD GENERATION (test code 2.080 UIU/ML = 2821) LIPID [id number] 00:00:00 Test Item Value Reference Range Interpretation Comments CHOLESTEROL (test code = 2210) 292 MG/DL TRIGLYCERIDES (test code = 2232) 184 MG/DL HDL CHOLESTEROL (test code = 2220) 51 MG/DL CALC LDL CHOL (test code = 2237) 205 MG/DL RISK RATIO LDL/HDL (test code = 4.02 RATIO 2238) LIPID [id number] 00:00:00 Test Item Value Reference Range Interpretation Comments CHOLESTEROL (test code = 2210) 292 MG/DL TRIGLYCERIDES (test code = 2232) 184 MG/DL HDL CHOLESTEROL (test code = 2220) 51 MG/DL CALC LDL CHOL (test code = 2237) 205 MG/DL RISK RATIO LDL/HDL (test code = 4.02 RATIO 2238) HEMOGLOBIN [id number] 00:00:00 Test Item Value Reference Range Interpretation Comments HEMOGLOBIN A1c (test code = 96119) 6.6 % HEMOGLOBIN [id number] 00:00:00 Test Item Value Reference Range Interpretation Comments HEMOGLOBIN A1c (test code = 88123) 6.6 % HEMOGLOBIN [id number] 00:00:00 Test Item Value Reference Range Interpretation Comments HEMOGLOBIN A1c (test code = 48819) 6.6 % HEMOGLOBIN [id number] 00:00:00 Test Item Value Reference Range Interpretation Comments HEMOGLOBIN A1c (test code = 59189) 6.8 % HEMOGLOBIN [id number] 00:00:00 Test Item Value Reference Range Interpretation Comments HEMOGLOBIN A1c (test code = 99918) 6.8 % HEMOGLOBIN [id number] 00:00:00 Test Item Value Reference Range Interpretation Comments HEMOGLOBIN A1c (test code = 42521) 6.8 % LIPID [id number] 00:00:00 Test Item Value Reference Range Interpretation Comments CHOLESTEROL (test code = 2210) 303 MG/DL TRIGLYCERIDES (test code = 2232) 191 MG/DL HDL CHOLESTEROL (test code = 2220) 61 MG/DL CALC LDL CHOL (test code = 2237) 205 MG/DL RISK RATIO LDL/HDL (test code = 3.36 RATIO 2238) LIPID [id number] 00:00:00 Test Item Value Reference Range Interpretation Comments CHOLESTEROL (test code = 2210) 303 MG/DL TRIGLYCERIDES (test code = 2232) 191 MG/DL HDL CHOLESTEROL (test code = 2220) 61 MG/DL CALC LDL CHOL (test code = 2237) 205 MG/DL RISK RATIO LDL/HDL (test code = 3.36 RATIO 2238) [id number] 00:00:00 Test Item Value Reference Range Interpretation Comments TSH, THIRD GENERATION (test code 0.769 UIU/ML = 2821) [id number] 00:00:00 Test Item Value Reference Range Interpretation Comments TSH, THIRD GENERATION (test code 0.769 UIU/ML = 2821) [id number] 00:00:00 Test Item Value Reference Range Interpretation Comments TSH, THIRD GENERATION (test code 0.769 UIU/ML = 2821) COMPREHENSIVE METABOLIC [id number] 00:00:00 Test Item Value Reference Range Interpretation Comments GLUCOSE (test code = 2217) 131 MG/DL BUN (test code = 2208) 13 MG/DL CREATININE (test code = 2214) 0.65 MG/DL eGFR AMER. (test code 113 ML/MIN/1.73 = 18252) eGFR NON- AMER. (test 97 ML/MIN/1.73 code = 79927) CALC BUN/CREAT (test code = 20 RATIO [...] code = 2219) 23 U/L COMPREHENSIVE METABOLIC [id number] 00:00:00 Test Item Value Reference Range Interpretation Comments GLUCOSE (test code = 2217) 131 MG/DL BUN (test code = 2208) 13 MG/DL CREATININE (test code = 2214) 0.65 MG/DL eGFR AMER. (test code 113 ML/MIN/1.73 = 00994) eGFR NON- AMER. (test 97 ML/MIN/1.73 code = 45653) CALC BUN/CREAT (test code = 20 RATIO [...] (test code = 2219) 23 U/L HEMOGLOBIN [id number] 00:00:00 Test Item Value Reference Range Interpretation Comments HEMOGLOBIN A1c (test code = 97471) 6.8 % HEMOGLOBIN [id number] 00:00:00 Test Item Value Reference Range Interpretation Comments HEMOGLOBIN A1c (test code = 91970) 6.8 % HEMOGLOBIN [id number] 00:00:00 Test Item Value Reference Range Interpretation Comments HEMOGLOBIN A1c (test code = 30013) 6.8 % LIPID [id number] 00:00:00 Test Item Value Reference Range Interpretation Comments CHOLESTEROL (test code = 2210) 303 MG/DL TRIGLYCERIDES (test code = 2232) 191 MG/DL HDL CHOLESTEROL (test code = 2220) 61 MG/DL CALC LDL CHOL (test code = 2237) 205 MG/DL RISK RATIO LDL/HDL (test code = 3.36 RATIO 2238) LIPID [id number] 00:00:00 Test Item Value Reference Range Interpretation Comments CHOLESTEROL (test code = 2210) 303 MG/DL TRIGLYCERIDES (test code = 2232) 191 MG/DL HDL CHOLESTEROL (test code = 2220) 61 MG/DL CALC LDL CHOL (test code = 2237) 205 MG/DL RISK RATIO LDL/HDL (test code = 3.36 RATIO 2238) [id number] 00:00:00 Test Item Value Reference Range Interpretation Comments TSH, THIRD GENERATION (test code 0.769 UIU/ML = 2821) [id number] 00:00:00 Test Item Value Reference Range Interpretation Comments TSH, THIRD GENERATION (test code 0.769 UIU/ML = 2821) [id number] 00:00:00 Test Item Value Reference Range Interpretation Comments TSH, THIRD GENERATION (test code 0.769 UIU/ML = 2821) COMPREHENSIVE METABOLIC [id number] 00:00:00 Test Item Value Reference Range Interpretation Comments GLUCOSE (test code = 2217) 131 MG/DL BUN (test code = 2208) 13 MG/DL CREATININE (test code = 2214) 0.65 MG/DL eGFR AMER. (test code 113 ML/MIN/1.73 = 11497) eGFR NON- AMER. (test 97 ML/MIN/1.73 code = 88464) CALC BUN/CREAT (test code = 20 RATIO [...] code = 2219) 23 U/L COMPREHENSIVE METABOLIC [id number] 00:00:00 Test Item Value Reference Range Interpretation Comments GLUCOSE (test code = 2217) 131 MG/DL BUN (test code = 2208) 13 MG/DL CREATININE (test code = 2214) 0.65 MG/DL eGFR AMER. (test code 113 ML/MIN/1.73 = 77655) eGFR NON- AMER. (test 97 ML/MIN/1.73 code = 19216) CALC BUN/CREAT (test code = 20 RATIO [...] (test code = 2219) 23 U/L HEMOGLOBIN [id number] 00:00:00 Test Item Value Reference Range Interpretation Comments HEMOGLOBIN A1c (test code = 57753) 6.8 % HEMOGLOBIN [id number] 00:00:00 Test Item Value Reference Range Interpretation Comments HEMOGLOBIN A1c (test code = 34499) 6.8 % LIPID [id number] 00:00:00 Test Item Value Reference Range Interpretation Comments CHOLESTEROL (test code = 2210) 303 MG/DL TRIGLYCERIDES (test code = 2232) 191 MG/DL HDL CHOLESTEROL (test code = 2220) 61 MG/DL CALC LDL CHOL (test code = 2237) 205 MG/DL RISK RATIO LDL/HDL (test code = 3.36 RATIO 2238) [id number] 00:00:00 Test Item Value Reference Range Interpretation Comments TSH, THIRD GENERATION (test code 0.769 UIU/ML = 2821) [id number] 00:00:00 Test Item Value Reference Range Interpretation Comments TSH, THIRD GENERATION (test code 0.769 UIU/ML = 2821) COMPREHENSIVE METABOLIC [id number] 00:00:00 Test Item Value Reference Range Interpretation Comments GLUCOSE (test code = 2217) 131 MG/DL BUN (test code = 2208) 13 MG/DL CREATININE (test code = 2214) 0.65 MG/DL eGFR AMER. (test code 113 ML/MIN/1.73 = 56559) eGFR NON- AMER. (test 97 ML/MIN/1.73 code = 33392) CALC BUN/CREAT (test code = 20 RATIO [...] (test code = 2219) 23 U/L HEMOGLOBIN [id number] 00:00:00 Test Item Value Reference Range Interpretation Comments HEMOGLOBIN A1c (test code = 78038) 6.8 % HEMOGLOBIN [id number] 00:00:00 Test Item Value Reference Range Interpretation Comments HEMOGLOBIN A1c (test code = 35499) 6.8 % HEMOGLOBIN [id number] 00:00:00 Test Item Value Reference Range Interpretation Comments HEMOGLOBIN A1c (test code = 38149) 6.8 % LIPID [id number] 00:00:00 Test Item Value Reference Range Interpretation Comments CHOLESTEROL (test code = 2210) 303 MG/DL TRIGLYCERIDES (test code = 2232) 191 MG/DL HDL CHOLESTEROL (test code = 2220) 61 MG/DL CALC LDL CHOL (test code = 2237) 205 MG/DL RISK RATIO LDL/HDL (test code = 3.36 RATIO 2238) LIPID [id number] 00:00:00 Test Item Value Reference Range Interpretation Comments CHOLESTEROL (test code = 2210) 303 MG/DL TRIGLYCERIDES (test code = 2232) 191 MG/DL HDL CHOLESTEROL (test code = 2220) 61 MG/DL CALC LDL CHOL (test code = 2237) 205 MG/DL RISK RATIO LDL/HDL (test code = 3.36 RATIO 2238) [id number] 00:00:00 Test Item Value Reference Range Interpretation Comments TSH, THIRD GENERATION (test code 0.769 UIU/ML = 2821) [id number] 00:00:00 Test Item Value Reference Range Interpretation Comments TSH, THIRD GENERATION (test code 0.769 UIU/ML = 2821) [id number] 00:00:00 Test Item Value Reference Range Interpretation Comments TSH, THIRD GENERATION (test code 0.769 UIU/ML = 2821) COMPREHENSIVE METABOLIC [id number] 00:00:00 Test Item Value Reference Range Interpretation Comments GLUCOSE (test code = 2217) 131 MG/DL BUN (test code = 2208) 13 MG/DL CREATININE (test code = 2214) 0.65 MG/DL eGFR AMER. (test code 113 ML/MIN/1.73 = 96863) eGFR NON- AMER. (test 97 ML/MIN/1.73 code = 40082) CALC BUN/CREAT (test code = 20 RATIO [...] code = 2219) 23 U/L COMPREHENSIVE METABOLIC [id number] 00:00:00 Test Item Value Reference Range Interpretation Comments GLUCOSE (test code = 2217) 131 MG/DL BUN (test code = 2208) 13 MG/DL CREATININE (test code = 2214) 0.65 MG/DL eGFR AMER. (test code 113 ML/MIN/1.73 = 02473) eGFR NON- AMER. (test 97 ML/MIN/1.73 code = 86772) CALC BUN/CREAT (test code = 20 RATIO [...] (test code = 2219) 23 U/L HEMOGLOBIN [id number] 00:00:00 Test Item Value Reference Range Interpretation Comments HEMOGLOBIN A1c (test code = 37057) 6.6 % HEMOGLOBIN [id number] 00:00:00 Test Item Value Reference Range Interpretation Comments HEMOGLOBIN A1c (test code = 25974) 6.6 % HEMOGLOBIN [id number] 00:00:00 Test Item Value Reference Range Interpretation Comments HEMOGLOBIN A1c (test code = 94653) 6.6 % LIPID [id number] 00:00:00 Test Item Value Reference Range Interpretation Comments CHOLESTEROL (test code = 2210) 261 MG/DL TRIGLYCERIDES (test code = 2232) 159 MG/DL HDL CHOLESTEROL (test code = 2220) 82 MG/DL CALC LDL CHOL (test code = 2237) 150 MG/DL RISK RATIO LDL/HDL (test code = 1.83 RATIO 2238) LIPID [id number] 00:00:00 Test Item Value Reference Range Interpretation Comments CHOLESTEROL (test code = 2210) 261 MG/DL TRIGLYCERIDES (test code = 2232) 159 MG/DL HDL CHOLESTEROL (test code = 2220) 82 MG/DL CALC LDL CHOL (test code = 2237) 150 MG/DL RISK RATIO LDL/HDL (test code = 1.83 RATIO 2238) COMPREHENSIVE METABOLIC [id number] 00:00:00 Test Item Value Reference Range Interpretation Comments GLUCOSE (test code = 2217) 144 MG/DL BUN (test code = 2208) 15 MG/DL CREATININE (test code = 2214) 0.85 MG/DL eGFR AMER. (test code 87 ML/MIN/1.73 = 07802) eGFR NON- AMER. (test 75 ML/MIN/1.73 code = 26243) CALC BUN/CREAT (test code = 18 RATIO [...] code = 2219) 50 U/L COMPREHENSIVE METABOLIC [id number] 00:00:00 Test Item Value Reference Range Interpretation Comments GLUCOSE (test code = 2217) 144 MG/DL BUN (test code = 2208) 15 MG/DL CREATININE (test code = 2214) 0.85 MG/DL eGFR AMER. (test code 87 ML/MIN/1.73 = 17717) eGFR NON- AMER. (test 75 ML/MIN/1.73 code = 48039) CALC BUN/CREAT (test code = 18 RATIO [...] 221) 27 U/L ALT (test code = 2219) 50 U/L THYROID II PROFILE (T3U, T4, T7, TSH)2020-05-23 00:00:00 Test Item Value Reference Range Interpretation Comments T-UPTAKE (test code = 7) 30.2 % THYROX. BIND. CAPAC. (test code 1.1 = 14560) T4 (THYROXINE) (test code = 4.3 UG/DL 2819) CORRECTED T4 (FTI) (test code = 3.9 UG/DL 2820) TSH, THIRD GENERATION (test 18.900 UIU/ML code = 2821) THYROID II PROFILE (T3U, T4, T7, TSH)2020-05-23 00:00:00 Test Item Value Reference Range Interpretation Comments T-UPTAKE (test code = 2816) 30.2 % THYROX. BIND. CAPAC. (test code 1.1 = 82010) T4 (THYROXINE) (test code = 4.3 UG/DL 2819) CORRECTED T4 (FTI) (test code = 3.9 UG/DL 2820) TSH, THIRD GENERATION (test 18.900 UIU/ML code = 2821) HEMOGLOBIN [id number] 00:00:00 Test Item Value Reference Range Interpretation Comments HEMOGLOBIN A1c (test code = 13372) 6.6 % HEMOGLOBIN [id number] 00:00:00 Test Item Value Reference Range Interpretation Comments HEMOGLOBIN A1c (test code = 77035) 6.6 % HEMOGLOBIN [id number] 00:00:00 Test Item Value Reference Range Interpretation Comments HEMOGLOBIN A1c (test code = 35320) 6.6 % LIPID [id number] 00:00:00 Test Item Value Reference Range Interpretation Comments CHOLESTEROL (test code = 2210) 261 MG/DL TRIGLYCERIDES (test code = 2232) 159 MG/DL HDL CHOLESTEROL (test code = 2220) 82 MG/DL CALC LDL CHOL (test code = 2237) 150 MG/DL RISK RATIO LDL/HDL (test code = 1.83 RATIO 2238) LIPID [id number] 00:00:00 Test Item Value Reference Range Interpretation Comments CHOLESTEROL (test code = 2210) 261 MG/DL TRIGLYCERIDES (test code = 2232) 159 MG/DL HDL CHOLESTEROL (test code = 2220) 82 MG/DL CALC LDL CHOL (test code = 2237) 150 MG/DL RISK RATIO LDL/HDL (test code = 1.83 RATIO 2238) COMPREHENSIVE METABOLIC [id number] 00:00:00 Test Item Value Reference Range Interpretation Comments GLUCOSE (test code = 2217) 144 MG/DL BUN (test code = 2208) 15 MG/DL CREATININE (test code = 2214) 0.85 MG/DL eGFR AMER. (test code 87 ML/MIN/1.73 = 75048) eGFR NON- AMER. (test 75 ML/MIN/1.73 code = 02574) CALC BUN/CREAT (test code = 18 RATIO [...] code = 2219) 50 U/L COMPREHENSIVE METABOLIC [id number] 00:00:00 Test Item Value Reference Range Interpretation Comments GLUCOSE (test code = 2217) 144 MG/DL BUN (test code = 2208) 15 MG/DL CREATININE (test code = 2214) 0.85 MG/DL eGFR AMER. (test code 87 ML/MIN/1.73 = 95762) eGFR NON- AMER. (test 75 ML/MIN/1.73 code = 51172) CALC BUN/CREAT (test code = 18 RATIO [...] THYROX. BIND. CAPAC. (test code 1.1 = 29456) T4 (THYROXINE) (test code = 4.3 UG/DL 2819) CORRECTED T4 (FTI) (test code = 3.9 UG/DL 2820) TSH, THIRD GENERATION (test 18.900 UIU/ML code = 2821) THYROID II PROFILE (T3U, T4, T7, TSH)2020-05-23 00:00:00 Test Item Value Reference Range Interpretation Comments T-UPTAKE (test code = 281) 30.2 % THYROX. BIND. CAPAC. (test code 1.1 = 34316) T4 (THYROXINE) (test code = 4.3 UG/DL 2819) CORRECTED T4 (FTI) (test code = 3.9 UG/DL 2820) TSH, THIRD GENERATION (test 18.900 UIU/ML code = 2821) HEMOGLOBIN [id number] 00:00:00 Test Item Value Reference Range Interpretation Comments HEMOGLOBIN A1c (test code = 31910) 6.6 % HEMOGLOBIN [id number] 00:00:00 Test Item Value Reference Range Interpretation Comments HEMOGLOBIN A1c (test code = 09164) 6.6 % LIPID [id number] 00:00:00 Test Item Value Reference Range Interpretation Comments CHOLESTEROL (test code = 2210) 261 MG/DL TRIGLYCERIDES (test code = 2232) 159 MG/DL HDL CHOLESTEROL (test code = 2220) 82 MG/DL CALC LDL CHOL (test code = 2237) 150 MG/DL RISK RATIO LDL/HDL (test code = 1.83 RATIO 2238) COMPREHENSIVE METABOLIC [id number] 00:00:00 Test Item Value Reference Range Interpretation Comments GLUCOSE (test code = 2217) 144 MG/DL BUN (test code = 2208) 15 MG/DL CREATININE (test code = 2214) 0.85 MG/DL eGFR AMER. (test code 87 ML/MIN/1.73 = 69726) eGFR NON- AMER. (test 75 ML/MIN/1.73 code = 19397) CALC BUN/CREAT (test code = 18 RATIO [...] THYROX. BIND. CAPAC. (test code 1.1 = 26763) T4 (THYROXINE) (test code = 4.3 UG/DL 2819) CORRECTED T4 (FTI) (test code = 3.9 UG/DL 2820) TSH, THIRD GENERATION (test 18.900 UIU/ML code = 2821) HEMOGLOBIN [id number] 00:00:00 Test Item Value Reference Range Interpretation Comments HEMOGLOBIN A1c (test code = 26660) 6.6 % HEMOGLOBIN [id number] 00:00:00 Test Item Value Reference Range Interpretation Comments HEMOGLOBIN A1c (test code = 96546) 6.6 % HEMOGLOBIN [id number] 00:00:00 Test Item Value Reference Range Interpretation Comments HEMOGLOBIN A1c (test code = 81711) 6.6 % LIPID [id number] 00:00:00 Test Item Value Reference Range Interpretation Comments CHOLESTEROL (test code = 2210) 261 MG/DL TRIGLYCERIDES (test code = 2232) 159 MG/DL HDL CHOLESTEROL (test code = 2220) 82 MG/DL CALC LDL CHOL (test code = 2237) 150 MG/DL RISK RATIO LDL/HDL (test code = 1.83 RATIO 2238) LIPID [id number] 00:00:00 Test Item Value Reference Range Interpretation Comments CHOLESTEROL (test code = 2210) 261 MG/DL TRIGLYCERIDES (test code = 2232) 159 MG/DL HDL CHOLESTEROL (test code = 2220) 82 MG/DL CALC LDL CHOL (test code = 2237) 150 MG/DL RISK RATIO LDL/HDL (test code = 1.83 RATIO 2238) COMPREHENSIVE METABOLIC [id number] 00:00:00 Test Item Value Reference Range Interpretation Comments GLUCOSE (test code = 2217) 144 MG/DL BUN (test code = 2208) 15 MG/DL CREATININE (test code = 2214) 0.85 MG/DL eGFR AMER. (test code 87 ML/MIN/1.73 = 10059) eGFR NON- AMER. (test 75 ML/MIN/1.73 code = 56287) CALC BUN/CREAT (test code = 18 RATIO [...] code = 2219) 50 U/L COMPREHENSIVE METABOLIC [id number] 00:00:00 Test Item Value Reference Range Interpretation Comments GLUCOSE (test code = 2217) 144 MG/DL BUN (test code = 2208) 15 MG/DL CREATININE (test code = 2214) 0.85 MG/DL eGFR AMER. (test code 87 ML/MIN/1.73 = 74147) eGFR NON- AMER. (test 75 ML/MIN/1.73 code = 34381) CALC BUN/CREAT (test code = 18 RATIO [...] Range Interpretation Comments T-UPTAKE (test code = 2815) 30.2 % THYROX. BIND. CAPAC. (test code 1.1 = 93934) T4 (THYROXINE) (test code = 4.3 UG/DL 2819) CORRECTED T4 (FTI) (test code = 3.9 UG/DL 2820) TSH, THIRD GENERATION (test 18.900 UIU/ML code = 2821) THYROID II PROFILE (T3U, T4, T7, TSH)2020-05-23 00:00:00 Test Item Value Reference Range Interpretation Comments T-UPTAKE (test code = 2817) 30.2 % THYROX. BIND. CAPAC. (test code 1.1 = 10744) T4 (THYROXINE) (test code = 4.3 UG/DL 2819) CORRECTED T4 (FTI) (test code = 3.9 UG/DL 2820) TSH, THIRD GENERATION (test 18.900 UIU/ML code = 2821) HEMOGLOBIN [id number] 00:00:00 Test Item Value Reference Range Interpretation Comments HEMOGLOBIN A1c (test code = 18380) 6.7 % HEMOGLOBIN [id number] 00:00:00 Test Item Value Reference Range Interpretation Comments HEMOGLOBIN A1c (test code = 15562) 6.7 % HEMOGLOBIN [id number] 00:00:00 Test Item Value Reference Range Interpretation Comments HEMOGLOBIN A1c (test code = 14732) 6.7 % LIPID [id number] 00:00:00 Test Item Value Reference Range Interpretation Comments CHOLESTEROL (test code = 2210) 267 MG/DL TRIGLYCERIDES (test code = 2232) 137 MG/DL HDL CHOLESTEROL (test code = 2220) 48 MG/DL CALC LDL CHOL (test code = 2237) 192 MG/DL RISK RATIO LDL/HDL (test code = 4.00 RATIO 2238) LIPID [id number] 00:00:00 Test Item Value Reference Range Interpretation Comments CHOLESTEROL (test code = 2210) 267 MG/DL TRIGLYCERIDES (test code = 2232) 137 MG/DL HDL CHOLESTEROL (test code = 2220) 48 MG/DL CALC LDL CHOL (test code = 2237) 192 MG/DL RISK RATIO LDL/HDL (test code = 4.00 RATIO 2238) COMPREHENSIVE METABOLIC [id number] 00:00:00 Test Item Value Reference Range Interpretation Comments GLUCOSE (test code = 2217) 155 MG/DL BUN (test code = 2208) 14 MG/DL CREATININE (test code = 2214) 0.52 MG/DL eGFR AMER. (test code 122 ML/MIN/1.73 = 70451) eGFR NON- AMER. (test 105 ML/MIN/1.73 code = 99289) CALC BUN/CREAT (test code = 27 RATIO [...] code = 2219) 27 U/L COMPREHENSIVE METABOLIC [id number] 00:00:00 Test Item Value Reference Range Interpretation Comments GLUCOSE (test code = 2217) 155 MG/DL BUN (test code = 2208) 14 MG/DL CREATININE (test code = 2214) 0.52 MG/DL eGFR AMER. (test code 122 ML/MIN/1.73 = 84681) eGFR NON- AMER. (test 105 ML/MIN/1.73 code = 66750) CALC BUN/CREAT (test code = 27 RATIO [...] THYROX. BIND. CAPAC. (test code 1.0 = 42130) T4 (THYROXINE) (test code = 4.7 UG/DL 2819) CORRECTED T4 (FTI) (test code = 4.7 UG/DL 2820) TSH, THIRD GENERATION (test code 0.201 UIU/ML = 2821) THYROID II PROFILE (T3U, T4, T7, TSH)2019 00:00:00 Test Item Value Reference Range Interpretation Comments T-UPTAKE (test code = 2817) 33.1 % THYROX. BIND. CAPAC. (test code 1.0 = 73325) T4 (THYROXINE) (test code = 4.7 UG/DL 2819) CORRECTED T4 (FTI) (test code = 4.7 UG/DL 2820) TSH, THIRD GENERATION (test code 0.201 UIU/ML = 2821) HEMOGLOBIN [id number] 00:00:00 Test Item Value Reference Range Interpretation Comments HEMOGLOBIN A1c (test code = 15317) 6.7 % HEMOGLOBIN [id number] 00:00:00 Test Item Value Reference Range Interpretation Comments HEMOGLOBIN A1c (test code = 20353) 6.7 % HEMOGLOBIN [id number] 00:00:00 Test Item Value Reference Range Interpretation Comments HEMOGLOBIN A1c (test code = 47945) 6.7 % LIPID [id number] 00:00:00 Test Item Value Reference Range Interpretation Comments CHOLESTEROL (test code = 2210) 267 MG/DL TRIGLYCERIDES (test code = 2232) 137 MG/DL HDL CHOLESTEROL (test code = 2220) 48 MG/DL CALC LDL CHOL (test code = 2237) 192 MG/DL RISK RATIO LDL/HDL (test code = 4.00 RATIO 2238) LIPID [id number] 00:00:00 Test Item Value Reference Range Interpretation Comments CHOLESTEROL (test code = 2210) 267 MG/DL TRIGLYCERIDES (test code = 2232) 137 MG/DL HDL CHOLESTEROL (test code = 2220) 48 MG/DL CALC LDL CHOL (test code = 2237) 192 MG/DL RISK RATIO LDL/HDL (test code = 4.00 RATIO 2238) COMPREHENSIVE METABOLIC [id number] 00:00:00 Test Item Value Reference Range Interpretation Comments GLUCOSE (test code = 2217) 155 MG/DL BUN (test code = 2208) 14 MG/DL CREATININE (test code = 2214) 0.52 MG/DL eGFR AMER. (test code 122 ML/MIN/1.73 = 25360) eGFR NON- AMER. (test 105 ML/MIN/1.73 code = 25383) CALC BUN/CREAT (test code = 27 RATIO [...] code = 2219) 27 U/L COMPREHENSIVE METABOLIC [id number] 00:00:00 Test Item Value Reference Range Interpretation Comments GLUCOSE (test code = 2217) 155 MG/DL BUN (test code = 2208) 14 MG/DL CREATININE (test code = 2214) 0.52 MG/DL eGFR AMER. (test code 122 ML/MIN/1.73 = 81638) eGFR NON- AMER. (test 105 ML/MIN/1.73 code = 08544) CALC BUN/CREAT (test code = 27 RATIO [...] THYROX. BIND. CAPAC. (test code 1.0 = 69919) T4 (THYROXINE) (test code = 4.7 UG/DL 2819) CORRECTED T4 (FTI) (test code = 4.7 UG/DL 2820) TSH, THIRD GENERATION (test code 0.201 UIU/ML = 2821) THYROID II PROFILE (T3U, T4, T7, TSH)2019 00:00:00 Test Item Value Reference Range Interpretation Comments T-UPTAKE (test code = 2816) 33.1 % THYROX. BIND. CAPAC. (test code 1.0 = 43504) T4 (THYROXINE) (test code = 4.7 UG/DL 2819) CORRECTED T4 (FTI) (test code = 4.7 UG/DL 2820) TSH, THIRD GENERATION (test code 0.201 UIU/ML = 2821) HEMOGLOBIN [id number] 00:00:00 Test Item Value Reference Range Interpretation Comments HEMOGLOBIN A1c (test code = 81537) 6.7 % HEMOGLOBIN [id number] 00:00:00 Test Item Value Reference Range Interpretation Comments HEMOGLOBIN A1c (test code = 44108) 6.7 % LIPID [id number] 00:00:00 Test Item Value Reference Range Interpretation Comments CHOLESTEROL (test code = 2210) 267 MG/DL TRIGLYCERIDES (test code = 2232) 137 MG/DL HDL CHOLESTEROL (test code = 2220) 48 MG/DL CALC LDL CHOL (test code = 2237) 192 MG/DL RISK RATIO LDL/HDL (test code = 4.00 RATIO 2238) COMPREHENSIVE METABOLIC [id number] 00:00:00 Test Item Value Reference Range Interpretation Comments GLUCOSE (test code = 2217) 155 MG/DL BUN (test code = 2208) 14 MG/DL CREATININE (test code = 2214) 0.52 MG/DL eGFR AMER. (test code 122 ML/MIN/1.73 = 31311) eGFR NON- AMER. (test 105 ML/MIN/1.73 code = 33447) CALC BUN/CREAT (test code = 27 RATIO [...] THYROX. BIND. CAPAC. (test code 1.0 = 15655) T4 (THYROXINE) (test code = 4.7 UG/DL 2819) CORRECTED T4 (FTI) (test code = 4.7 UG/DL 2820) TSH, THIRD GENERATION (test code 0.201 UIU/ML = 2821) HEMOGLOBIN [id number] 00:00:00 Test Item Value Reference Range Interpretation Comments HEMOGLOBIN A1c (test code = 42298) 6.7 % HEMOGLOBIN [id number] 00:00:00 Test Item Value Reference Range Interpretation Comments HEMOGLOBIN A1c (test code = 19528) 6.7 % HEMOGLOBIN [id number] 00:00:00 Test Item Value Reference Range Interpretation Comments HEMOGLOBIN A1c (test code = 29070) 6.7 % LIPID [id number] 00:00:00 Test Item Value Reference Range Interpretation Comments CHOLESTEROL (test code = 2210) 267 MG/DL TRIGLYCERIDES (test code = 2232) 137 MG/DL HDL CHOLESTEROL (test code = 2220) 48 MG/DL CALC LDL CHOL (test code = 2237) 192 MG/DL RISK RATIO LDL/HDL (test code = 4.00 RATIO 2238) LIPID [id number] 00:00:00 Test Item Value Reference Range Interpretation Comments CHOLESTEROL (test code = 2210) 267 MG/DL TRIGLYCERIDES (test code = 2232) 137 MG/DL HDL CHOLESTEROL (test code = 2220) 48 MG/DL CALC LDL CHOL (test code = 2237) 192 MG/DL RISK RATIO LDL/HDL (test code = 4.00 RATIO 2238) COMPREHENSIVE METABOLIC [id number] 00:00:00 Test Item Value Reference Range Interpretation Comments GLUCOSE (test code = 2217) 155 MG/DL BUN (test code = 2208) 14 MG/DL CREATININE (test code = 2214) 0.52 MG/DL eGFR AMER. (test code 122 ML/MIN/1.73 = 73008) eGFR NON- AMER. (test 105 ML/MIN/1.73 code = 01297) CALC BUN/CREAT (test code = 27 RATIO [...] code = 2219) 27 U/L COMPREHENSIVE METABOLIC [id number] 00:00:00 Test Item Value Reference Range Interpretation Comments GLUCOSE (test code = 2217) 155 MG/DL BUN (test code = 2208) 14 MG/DL CREATININE (test code = 2214) 0.52 MG/DL eGFR AMER. (test code 122 ML/MIN/1.73 = 65386) eGFR NON- AMER. (test 105 ML/MIN/1.73 code = 03655) CALC BUN/CREAT (test code = 27 RATIO [...] THYROX. BIND. CAPAC. (test code 1.0 = 08157) T4 (THYROXINE) (test code = 4.7 UG/DL 2819) CORRECTED T4 (FTI) (test code = 4.7 UG/DL 2820) TSH, THIRD GENERATION (test code 0.201 UIU/ML = 2821) THYROID II PROFILE (T3U, T4, T7, TSH)2019 00:00:00 Test Item Value Reference Range Interpretation Comments T-UPTAKE (test code = 281) 33.1 % THYROX. BIND. CAPAC. (test code 1.0 = 03851) T4 (THYROXINE) (test code = 4.7 UG/DL 2819) CORRECTED T4 (FTI) (test code = 4.7 UG/DL 2820) TSH, THIRD GENERATION (test code 0.201 UIU/ML = 2821) SARS-CoV-2 (COVID-19) by RT-PCR (HIGH RISK)2019-09-18 00:00:00 Test Item Value Reference Range Interpretation Comments SARS-CoV-2 INTERPRETATION (test NEGATIVE code = 38368) SOURCE (test code = 83553) NOT SPECIFIED SARS-CoV-2 (COVID-19) by RT-PCR (HIGH RISK)2019-09-18 00:00:00 Test Item Value Reference Range Interpretation Comments SARS-CoV-2 INTERPRETATION (test NEGATIVE code = 41982) SOURCE (test code = 71958) NOT SPECIFIED SARS-CoV-2 (COVID-19) by RT-PCR (HIGH RISK)2019-09-18 00:00:00 Test Item Value Reference Range Interpretation Comments SARS-CoV-2 INTERPRETATION (test NEGATIVE code = 65351) SOURCE (test code = 38246) NOT SPECIFIED SARS-CoV-2 (COVID-19) by RT-PCR (HIGH RISK)2019-09-18 00:00:00 Test Item Value Reference Range Interpretation Comments SARS-CoV-2 INTERPRETATION (test NEGATIVE code = 42699) SOURCE (test code = 53240) NOT SPECIFIED SARS-CoV-2 (COVID-19) by RT-PCR (HIGH RISK)2019-09-18 00:00:00 Test Item Value Reference Range Interpretation Comments SARS-CoV-2 INTERPRETATION (test NEGATIVE code = 87177) SOURCE (test code = 87557) NOT SPECIFIED SARS-CoV-2 (COVID-19) by RT-PCR (HIGH RISK)2019-09-18 00:00:00 Test Item Value Reference Range Interpretation Comments SARS-CoV-2 INTERPRETATION (test NEGATIVE code = 85127) SOURCE (test code = 84164) NOT SPECIFIED SARS-CoV-2 (COVID-19) by RT-PCR (HIGH RISK)2019-09-18 00:00:00 Test Item Value Reference Range Interpretation Comments SARS-CoV-2 INTERPRETATION (test NEGATIVE code = 44878) SOURCE (test code = 10402) NOT SPECIFIED [id number] 00:00:00 Test Item Value Reference Range Interpretation Comments TSH, THIRD GENERATION (test code 2.490 UIU/ML = 2821) [id number] 00:00:00 Test Item Value Reference Range Interpretation Comments TSH, THIRD GENERATION (test code 2.490 UIU/ML = 2821) [id number] 00:00:00 Test Item Value Reference Range Interpretation Comments TSH, THIRD GENERATION (test code 2.490 UIU/ML = 2821) HEMOGLOBIN [id number] 00:00:00 Test Item Value Reference Range Interpretation Comments HEMOGLOBIN A1c (test code = 31253) 6.4 % HEMOGLOBIN [id number] 00:00:00 Test Item Value Reference Range Interpretation Comments HEMOGLOBIN A1c (test code = 83166) 6.4 % HEMOGLOBIN [id number] 00:00:00 Test Item Value Reference Range Interpretation Comments HEMOGLOBIN A1c (test code = 16624) 6.4 % COMPREHENSIVE METABOLIC [id number] 00:00:00 Test Item Value Reference Range Interpretation Comments GLUCOSE (test code = 2217) 206 MG/DL BUN (test code = 2208) 23 MG/DL CREATININE (test code = 2214) 0.67 MG/DL eGFR AMER. (test code 112 ML/MIN/1.73 = 52897) eGFR NON- AMER. (test 97 ML/MIN/1.73 code = 76661) CALC BUN/CREAT (test code = 34 RATIO [...] code = 2219) 25 U/L COMPREHENSIVE METABOLIC [id number] 00:00:00 Test Item Value Reference Range Interpretation Comments GLUCOSE (test code = 2217) 206 MG/DL BUN (test code = 2208) 23 MG/DL CREATININE (test code = 2214) 0.67 MG/DL eGFR AMER. (test code 112 ML/MIN/1.73 = 74841) eGFR NON- AMER. (test 97 ML/MIN/1.73 code = 75385) CALC BUN/CREAT (test code = 34 RATIO [...] ALT (test code = 2219) 25 U/L [id number] 00:00:00 Test Item Value Reference Range Interpretation Comments TSH, THIRD GENERATION (test code 2.490 UIU/ML = 2821) [id number] 00:00:00 Test Item Value Reference Range Interpretation Comments TSH, THIRD GENERATION (test code 2.490 UIU/ML = 2821) [id number] 00:00:00 Test Item Value Reference Range Interpretation Comments TSH, THIRD GENERATION (test code 2.490 UIU/ML = 2821) HEMOGLOBIN [id number] 00:00:00 Test Item Value Reference Range Interpretation Comments HEMOGLOBIN A1c (test code = 35013) 6.4 % HEMOGLOBIN [id number] 00:00:00 Test Item Value Reference Range Interpretation Comments HEMOGLOBIN A1c (test code = 69494) 6.4 % HEMOGLOBIN [id number] 00:00:00 Test Item Value Reference Range Interpretation Comments HEMOGLOBIN A1c (test code = 25534) 6.4 % COMPREHENSIVE METABOLIC [id number] 00:00:00 Test Item Value Reference Range Interpretation Comments GLUCOSE (test code = 2217) 206 MG/DL BUN (test code = 2208) 23 MG/DL CREATININE (test code = 2214) 0.67 MG/DL eGFR AMER. (test code 112 ML/MIN/1.73 = 88267) eGFR NON- AMER. (test 97 ML/MIN/1.73 code = 23312) CALC BUN/CREAT (test code = 34 RATIO [...] code = 2219) 25 U/L COMPREHENSIVE METABOLIC [id number] 00:00:00 Test Item Value Reference Range Interpretation Comments GLUCOSE (test code = 2217) 206 MG/DL BUN (test code = 2208) 23 MG/DL CREATININE (test code = 2214) 0.67 MG/DL eGFR AMER. (test code 112 ML/MIN/1.73 = 71456) eGFR NON- AMER. (test 97 ML/MIN/1.73 code = 58959) CALC BUN/CREAT (test code = 34 RATIO [...] ALT (test code = 2219) 25 U/L [id number] 00:00:00 Test Item Value Reference Range Interpretation Comments TSH, THIRD GENERATION (test code 2.490 UIU/ML = 2821) [id number] 00:00:00 Test Item Value Reference Range Interpretation Comments TSH, THIRD GENERATION (test code 2.490 UIU/ML = 2821) HEMOGLOBIN [id number] 00:00:00 Test Item Value Reference Range Interpretation Comments HEMOGLOBIN A1c (test code = 97777) 6.4 % HEMOGLOBIN [id number] 00:00:00 Test Item Value Reference Range Interpretation Comments HEMOGLOBIN A1c (test code = 89025) 6.4 % COMPREHENSIVE METABOLIC [id number] 00:00:00 Test Item Value Reference Range Interpretation Comments GLUCOSE (test code = 2217) 206 MG/DL BUN (test code = 2208) 23 MG/DL CREATININE (test code = 2214) 0.67 MG/DL eGFR AMER. (test code 112 ML/MIN/1.73 = 34572) eGFR NON- AMER. (test 97 ML/MIN/1.73 code = 05536) CALC BUN/CREAT (test code = 34 RATIO [...] ALT (test code = 2219) 25 U/L [id number] 00:00:00 Test Item Value Reference Range Interpretation Comments TSH, THIRD GENERATION (test code 2.490 UIU/ML = 2821) [id number] 00:00:00 Test Item Value Reference Range Interpretation Comments TSH, THIRD GENERATION (test code 2.490 UIU/ML = 2821) [id number] 00:00:00 Test Item Value Reference Range Interpretation Comments TSH, THIRD GENERATION (test code 2.490 UIU/ML = 2821) HEMOGLOBIN [id number] 00:00:00 Test Item Value Reference Range Interpretation Comments HEMOGLOBIN A1c (test code = 58872) 6.4 % HEMOGLOBIN [id number] 00:00:00 Test Item Value Reference Range Interpretation Comments HEMOGLOBIN A1c (test code = 10280) 6.4 % HEMOGLOBIN [id number] 00:00:00 Test Item Value Reference Range Interpretation Comments HEMOGLOBIN A1c (test code = 77940) 6.4 % COMPREHENSIVE METABOLIC [id number] 00:00:00 Test Item Value Reference Range Interpretation Comments GLUCOSE (test code = 2217) 206 MG/DL BUN (test code = 2208) 23 MG/DL CREATININE (test code = 2214) 0.67 MG/DL eGFR AMER. (test code 112 ML/MIN/1.73 = 36579) eGFR NON- AMER. (test 97 ML/MIN/1.73 code = 26437) CALC BUN/CREAT (test code = 34 RATIO [...] code = 2219) 25 U/L COMPREHENSIVE METABOLIC [id number] 00:00:00 Test Item Value Reference Range Interpretation Comments GLUCOSE (test code = 2217) 206 MG/DL BUN (test code = 2208) 23 MG/DL CREATININE (test code = 2214) 0.67 MG/DL eGFR AMER. (test code 112 ML/MIN/1.73 = 15656) eGFR NON- AMER. (test 97 ML/MIN/1.73 code = 68775) CALC BUN/CREAT (test code = 34 RATIO [...] = 2219) 25 U/L VAGINAL PATHOGENS DNA [id number] 00:00:00 Test Item Value Reference Range Interpretation Comments MARK SPECIES (test code = ) NEGATIVE G. VAGINALIS (test code = 78255) NEGATIVE T. VAGINALIS (test code = 47904) NEGATIVE VAGINAL PATHOGENS DNA [id number] 00:00:00 Test Item Value Reference Range Interpretation Comments MARK SPECIES (test code = 02156) NEGATIVE G. VAGINALIS (test code = 62000) NEGATIVE T. VAGINALIS (test code = 52110) NEGATIVE VAGINAL PATHOGENS DNA [id number] 00:00:00 Test Item Value Reference Range Interpretation Comments MARK SPECIES (test code = 63789) NEGATIVE G. VAGINALIS (test code = 80212) NEGATIVE T. VAGINALIS (test code = 54188) NEGATIVE VAGINAL PATHOGENS DNA [id number] 00:00:00 Test Item Value Reference Range Interpretation Comments MARK SPECIES (test code = 71473) NEGATIVE G. VAGINALIS (test code = 92863) NEGATIVE T. VAGINALIS (test code = 55132) NEGATIVE VAGINAL PATHOGENS DNA [id number] 00:00:00 Test Item Value Reference Range Interpretation Comments MARK SPECIES (test code = ) NEGATIVE G. VAGINALIS (test code = 91815) NEGATIVE T. VAGINALIS (test code = 92393) NEGATIVE VAGINAL PATHOGENS DNA [id number] 00:00:00 Test Item Value Reference Range Interpretation Comments MARK SPECIES (test code = 75624) NEGATIVE G. VAGINALIS (test code = 57338) NEGATIVE T. VAGINALIS (test code = 63640) NEGATIVE VAGINAL PATHOGENS DNA [id number] 00:00:00 Test Item Value Reference Range Interpretation Comments MARK SPECIES (test code = ) NEGATIVE G. VAGINALIS (test code = 68300) NEGATIVE T. VAGINALIS (test code = 86482) NEGATIVE HEMOGLOBIN A1c [ADDED]2018-12-01 00:00:00 Test Item Value Reference Range Interpretation Comments HEMOGLOBIN A1c (test code = 24917) 6.7 % HEMOGLOBIN A1c [ADDED]2018-12-01 00:00:00 Test Item Value Reference Range Interpretation Comments HEMOGLOBIN A1c (test code = 95395) 6.7 % HEMOGLOBIN A1c [ADDED]2018-12-01 00:00:00 Test Item Value Reference Range Interpretation Comments HEMOGLOBIN A1c (test code = 00662) 6.7 % COMPREHENSIVE METABOLIC PANEL [ADDED]2018-12-01 00:00:00 Test Item Value Reference Range Interpretation Comments GLUCOSE (test code = 2217) 136 MG/DL BUN (test code = 2208) 15 MG/DL CREATININE (test code = 2214) 0.64 MG/DL eGFR AMER. (test code 115 ML/MIN/1.73 = 31386) eGFR NON- AMER. (test 99 ML/MIN/1.73 code = 24961) CALC BUN/CREAT (test code = 23 RATIO [...] eGFR AMER. (test code 115 ML/MIN/1.73 = 07483) eGFR NON- AMER. (test 99 ML/MIN/1.73 code = 43599) CALC BUN/CREAT (test code = 23 RATIO [...] Interpretation Comments HEMOGLOBIN A1c (test code = 88810) 6.7 % HEMOGLOBIN A1c [ADDED]2018-12-01 00:00:00 Test Item Value Reference Range Interpretation Comments HEMOGLOBIN A1c (test code = 19996) 6.7 % HEMOGLOBIN A1c [ADDED]2018-12-01 00:00:00 Test Item Value Reference Range Interpretation Comments HEMOGLOBIN A1c (test code = 41843) 6.7 % COMPREHENSIVE METABOLIC PANEL [ADDED]2018-12-01 00:00:00 Test Item Value Reference Range Interpretation Comments GLUCOSE (test code = 2217) 136 MG/DL BUN (test code = 2208) 15 MG/DL CREATININE (test code = 2214) 0.64 MG/DL eGFR AMER. (test code 115 ML/MIN/1.73 = 25097) eGFR NON- AMER. (test 99 ML/MIN/1.73 code = 83953) CALC BUN/CREAT (test code = 23 RATIO [...] eGFR AMER. (test code 115 ML/MIN/1.73 = 14817) eGFR NON- AMER. (test 99 ML/MIN/1.73 code = 65550) CALC BUN/CREAT (test code = 23 RATIO [...] Interpretation Comments HEMOGLOBIN A1c (test code = 43750) 6.7 % HEMOGLOBIN A1c [ADDED]2018-12-01 00:00:00 Test Item Value Reference Range Interpretation Comments HEMOGLOBIN A1c (test code = 93170) 6.7 % COMPREHENSIVE METABOLIC PANEL [ADDED]2018-12-01 00:00:00 Test Item Value Reference Range Interpretation Comments GLUCOSE (test code = 2217) 136 MG/DL BUN (test code = 2208) 15 MG/DL CREATININE (test code = 2214) 0.64 MG/DL eGFR AMER. (test code 115 ML/MIN/1.73 = 79127) eGFR NON- AMER. (test 99 ML/MIN/1.73 code = 94705) CALC BUN/CREAT (test code = 23 RATIO [...] Interpretation Comments HEMOGLOBIN A1c (test code = 86757) 6.7 % HEMOGLOBIN A1c [ADDED]2018-12-01 00:00:00 Test Item Value Reference Range Interpretation Comments HEMOGLOBIN A1c (test code = 49998) 6.7 % HEMOGLOBIN A1c [ADDED]2018-12-01 00:00:00 Test Item Value Reference Range Interpretation Comments HEMOGLOBIN A1c (test code = 67316) 6.7 % COMPREHENSIVE METABOLIC PANEL [ADDED]2018-12-01 00:00:00 Test Item Value Reference Range Interpretation Comments GLUCOSE (test code = 2217) 136 MG/DL BUN (test code = 2208) 15 MG/DL CREATININE (test code = 2214) 0.64 MG/DL eGFR AMER. (test code 115 ML/MIN/1.73 = 20408) eGFR NON- AMER. (test 99 ML/MIN/1.73 code = 33550) CALC BUN/CREAT (test code = 23 RATIO [...] eGFR AMER. (test code 115 ML/MIN/1.73 = 93877) eGFR NON- AMER. (test 99 ML/MIN/1.73 code = 15262) CALC BUN/CREAT (test code = 23 RATIO [...] code 1.280 UIU/ML = 2821) CBC W/AUTO [id number] 00:00:00 Test Item Value Reference Range Interpretation [...] code = 1015) 346 K/UL CBC W/AUTO [id number] 00:00:00 Test Item Value Reference Range Interpretation [...] code = 1015) 346 K/UL CBC W/AUTO [id number] 00:00:00 Test Item Value Reference Range Interpretation [...] (test code = 1015) 346 K/UL HEMOGLOBIN [id number] 00:00:00 Test Item Value Reference Range Interpretation Comments HEMOGLOBIN A1c (test code = 43277) 5.9 % HEMOGLOBIN [id number] 00:00:00 Test Item Value Reference Range Interpretation Comments HEMOGLOBIN A1c (test code = 33465) 5.9 % HEMOGLOBIN [id number] 00:00:00 Test Item Value Reference Range Interpretation Comments HEMOGLOBIN A1c (test code = 29518) 5.9 % LIPID [id number] 00:00:00 Test Item Value Reference Range Interpretation Comments CHOLESTEROL (test code = 2210) 318 MG/DL TRIGLYCERIDES (test code = 2232) 263 MG/DL HDL CHOLESTEROL (test code = 2220) 51 MG/DL CALC LDL CHOL (test code = 2237) 214 MG/DL RISK RATIO LDL/HDL (test code = 4.20 RATIO 2238) LIPID [id number] 00:00:00 Test Item Value Reference Range Interpretation Comments CHOLESTEROL (test code = 2210) 318 MG/DL TRIGLYCERIDES (test code = 2232) 263 MG/DL HDL CHOLESTEROL (test code = 2220) 51 MG/DL CALC LDL CHOL (test code = 2237) 214 MG/DL RISK RATIO LDL/HDL (test code = 4.20 RATIO 2238) COMPREHENSIVE METABOLIC [id number] 00:00:00 Test Item Value Reference Range Interpretation Comments GLUCOSE (test code = 2217) 113 MG/DL BUN (test code = 2208) 18 MG/DL CREATININE (test code = 2214) 0.70 MG/DL eGFR AMER. (test code 111 ML/MIN/1.73 = 21221) eGFR NON- AMER. (test 96 ML/MIN/1.73 code = 58765) CALC BUN/CREAT (test code = 26 RATIO [...] code = 2219) 31 U/L COMPREHENSIVE METABOLIC [id number] 00:00:00 Test Item Value Reference Range Interpretation Comments GLUCOSE (test code = 2217) 113 MG/DL BUN (test code = 2208) 18 MG/DL CREATININE (test code = 2214) 0.70 MG/DL eGFR AMER. (test code 111 ML/MIN/1.73 = 54619) eGFR NON- AMER. (test 96 ML/MIN/1.73 code = 91956) CALC BUN/CREAT (test code = 26 RATIO [...] ALT (test code = 2219) 31 U/L [id number] 00:00:00 Test Item Value Reference Range Interpretation Comments TSH, THIRD GENERATION (test code 2.520 UIU/ML = 2821) [id number] 00:00:00 Test Item Value Reference Range Interpretation Comments TSH, THIRD GENERATION (test code 2.520 UIU/ML = 2821) [id number] 00:00:00 Test Item Value Reference Range Interpretation Comments TSH, THIRD GENERATION (test code 2.520 UIU/ML = 2821) CBC W/AUTO [id number] 00:00:00 Test Item Value Reference Range Interpretation [...] code = 1015) 346 K/UL CBC W/AUTO [id number] 00:00:00 Test Item Value Reference Range Interpretation [...] code = 1015) 346 K/UL CBC W/AUTO [id number] 00:00:00 Test Item Value Reference Range Interpretation [...] (test code = 1015) 346 K/UL HEMOGLOBIN [id number] 00:00:00 Test Item Value Reference Range Interpretation Comments HEMOGLOBIN A1c (test code = 59562) 5.9 % HEMOGLOBIN [id number] 00:00:00 Test Item Value Reference Range Interpretation Comments HEMOGLOBIN A1c (test code = 05490) 5.9 % HEMOGLOBIN [id number] 00:00:00 Test Item Value Reference Range Interpretation Comments HEMOGLOBIN A1c (test code = 72141) 5.9 % LIPID [id number] 00:00:00 Test Item Value Reference Range Interpretation Comments CHOLESTEROL (test code = 2210) 318 MG/DL TRIGLYCERIDES (test code = 2232) 263 MG/DL HDL CHOLESTEROL (test code = 2220) 51 MG/DL CALC LDL CHOL (test code = 2237) 214 MG/DL RISK RATIO LDL/HDL (test code = 4.20 RATIO 2238) LIPID [id number] 00:00:00 Test Item Value Reference Range Interpretation Comments CHOLESTEROL (test code = 2210) 318 MG/DL TRIGLYCERIDES (test code = 2232) 263 MG/DL HDL CHOLESTEROL (test code = 2220) 51 MG/DL CALC LDL CHOL (test code = 2237) 214 MG/DL RISK RATIO LDL/HDL (test code = 4.20 RATIO 2238) COMPREHENSIVE METABOLIC [id number] 00:00:00 Test Item Value Reference Range Interpretation Comments GLUCOSE (test code = 2217) 113 MG/DL BUN (test code = 2208) 18 MG/DL CREATININE (test code = 2214) 0.70 MG/DL eGFR AMER. (test code 111 ML/MIN/1.73 = 78596) eGFR NON- AMER. (test 96 ML/MIN/1.73 code = 82891) CALC BUN/CREAT (test code = 26 RATIO [...] code = 2219) 31 U/L COMPREHENSIVE METABOLIC [id number] 00:00:00 Test Item Value Reference Range Interpretation Comments GLUCOSE (test code = 2217) 113 MG/DL BUN (test code = 2208) 18 MG/DL CREATININE (test code = 2214) 0.70 MG/DL eGFR AMER. (test code 111 ML/MIN/1.73 = 44967) eGFR NON- AMER. (test 96 ML/MIN/1.73 code = 19594) CALC BUN/CREAT (test code = 26 RATIO [...] ALT (test code = 2219) 31 U/L [id number] 00:00:00 Test Item Value Reference Range Interpretation Comments TSH, THIRD GENERATION (test code 2.520 UIU/ML = 2821) [id number] 00:00:00 Test Item Value Reference Range Interpretation Comments TSH, THIRD GENERATION (test code 2.520 UIU/ML = 2821) [id number] 00:00:00 Test Item Value Reference Range Interpretation Comments TSH, THIRD GENERATION (test code 2.520 UIU/ML = 2821) CBC W/AUTO [id number] 00:00:00 Test Item Value Reference Range Interpretation [...] code = 1015) 346 K/UL CBC W/AUTO [id number] 00:00:00 Test Item Value Reference Range Interpretation [...] (test code = 1015) 346 K/UL HEMOGLOBIN [id number] 00:00:00 Test Item Value Reference Range Interpretation Comments HEMOGLOBIN A1c (test code = 50078) 5.9 % HEMOGLOBIN [id number] 00:00:00 Test Item Value Reference Range Interpretation Comments HEMOGLOBIN A1c (test code = 53818) 5.9 % LIPID [id number] 00:00:00 Test Item Value Reference Range Interpretation Comments CHOLESTEROL (test code = 2210) 318 MG/DL TRIGLYCERIDES (test code = 2232) 263 MG/DL HDL CHOLESTEROL (test code = 2220) 51 MG/DL CALC LDL CHOL (test code = 2237) 214 MG/DL RISK RATIO LDL/HDL (test code = 4.20 RATIO 2238) COMPREHENSIVE METABOLIC [id number] 00:00:00 Test Item Value Reference Range Interpretation Comments GLUCOSE (test code = 2217) 113 MG/DL BUN (test code = 2208) 18 MG/DL CREATININE (test code = 2214) 0.70 MG/DL eGFR AMER. (test code 111 ML/MIN/1.73 = 78205) eGFR NON- AMER. (test 96 ML/MIN/1.73 code = 93391) CALC BUN/CREAT (test code = 26 RATIO [...] ALT (test code = 2219) 31 U/L [id number] 00:00:00 Test Item Value Reference Range Interpretation Comments TSH, THIRD GENERATION (test code 2.520 UIU/ML = 2821) [id number] 00:00:00 Test Item Value Reference Range Interpretation Comments TSH, THIRD GENERATION (test code 2.520 UIU/ML = 2821) CBC W/AUTO [id number] 00:00:00 Test Item Value Reference Range Interpretation [...] code = 1015) 346 K/UL CBC W/AUTO [id number] 00:00:00 Test Item Value Reference Range Interpretation [...] code = 1015) 346 K/UL CBC W/AUTO [id number] 00:00:00 Test Item Value Reference Range Interpretation [...] (test code = 1015) 346 K/UL HEMOGLOBIN [id number] 00:00:00 Test Item Value Reference Range Interpretation Comments HEMOGLOBIN A1c (test code = 08751) 5.9 % HEMOGLOBIN [id number] 00:00:00 Test Item Value Reference Range Interpretation Comments HEMOGLOBIN A1c (test code = 25143) 5.9 % HEMOGLOBIN [id number] 00:00:00 Test Item Value Reference Range Interpretation Comments HEMOGLOBIN A1c (test code = 15171) 5.9 % LIPID [id number] 00:00:00 Test Item Value Reference Range Interpretation Comments CHOLESTEROL (test code = 2210) 318 MG/DL TRIGLYCERIDES (test code = 2232) 263 MG/DL HDL CHOLESTEROL (test code = 2220) 51 MG/DL CALC LDL CHOL (test code = 2237) 214 MG/DL RISK RATIO LDL/HDL (test code = 4.20 RATIO 2238) LIPID [id number] 00:00:00 Test Item Value Reference Range Interpretation Comments CHOLESTEROL (test code = 2210) 318 MG/DL TRIGLYCERIDES (test code = 2232) 263 MG/DL HDL CHOLESTEROL (test code = 2220) 51 MG/DL CALC LDL CHOL (test code = 2237) 214 MG/DL RISK RATIO LDL/HDL (test code = 4.20 RATIO 2238) COMPREHENSIVE METABOLIC [id number] 00:00:00 Test Item Value Reference Range Interpretation Comments GLUCOSE (test code = 2217) 113 MG/DL BUN (test code = 2208) 18 MG/DL CREATININE (test code = 2214) 0.70 MG/DL eGFR AMER. (test code 111 ML/MIN/1.73 = 08584) eGFR NON- AMER. (test 96 ML/MIN/1.73 code = 09860) CALC BUN/CREAT (test code = 26 RATIO [...] code = 2219) 31 U/L COMPREHENSIVE METABOLIC [id number] 00:00:00 Test Item Value Reference Range Interpretation Comments GLUCOSE (test code = 2217) 113 MG/DL BUN (test code = 2208) 18 MG/DL CREATININE (test code = 2214) 0.70 MG/DL eGFR AMER. (test code 111 ML/MIN/1.73 = 82798) eGFR NON- AMER. (test 96 ML/MIN/1.73 code = 65320) CALC BUN/CREAT (test code = 26 RATIO [...] ALT (test code = 2219) 31 U/L [id number] 00:00:00 Test Item Value Reference Range Interpretation Comments TSH, THIRD GENERATION (test code 2.520 UIU/ML = 2821) [id number] 00:00:00 Test Item Value Reference Range Interpretation Comments TSH, THIRD GENERATION (test code 2.520 UIU/ML = 2821) [id number] 00:00:00 Test Item Value Reference Range Interpretation Comments TSH, THIRD GENERATION (test code 2.520 UIU/ML = 2821) CULTURE, [id number] 00:00:00 Test Item Value Reference Range Interpretation Comments CULTURE, URINE (test SPECIMEN NUMBER: code = 04380) [id number] CULTURE, [id number] 00:00:00 Test Item Value Reference Range Interpretation Comments CULTURE, URINE (test SPECIMEN NUMBER: code = 86172) [id number] CULTURE, [id number] 00:00:00 Test Item Value Reference Range Interpretation Comments CULTURE, URINE (test SPECIMEN NUMBER: code = 67394) [id number] CULTURE, [id number] 00:00:00 Test Item Value Reference Range Interpretation Comments CULTURE, URINE (test SPECIMEN NUMBER: code = 51426) [id number] CULTURE, [id number] 00:00:00 Test Item Value Reference Range Interpretation Comments CULTURE, URINE (test SPECIMEN NUMBER: code = 74797) [id number] CULTURE, [id number] 00:00:00 Test Item Value Reference Range Interpretation Comments CULTURE, URINE (test SPECIMEN NUMBER: code = 16339) [id number] CULTURE, [id number] 00:00:00 Test Item Value Reference Range Interpretation Comments CULTURE, URINE (test SPECIMEN NUMBER: code = 31354) [id number] CULTURE, [id number] 00:00:00 Test Item Value Reference Range Interpretation Comments CULTURE, URINE (test SPECIMEN NUMBER: code = 61038) [id number] CULTURE, [id number] 00:00:00 Test Item Value Reference Range Interpretation Comments CULTURE, URINE (test SPECIMEN NUMBER: code = 52131) [id number] CULTURE, [id number] 00:00:00 Test Item Value Reference Range Interpretation Comments CULTURE, URINE (test SPECIMEN NUMBER: code = 41002) [id number] CULTURE, [id number] 00:00:00 Test Item Value Reference Range Interpretation Comments CULTURE, URINE (test SPECIMEN NUMBER: code = 82511) [id number] CULTURE, [id number] 00:00:00 Test Item Value Reference Range Interpretation Comments CULTURE, URINE (test SPECIMEN NUMBER: code = 04777) [id number] CULTURE, [id number] 00:00:00 Test Item Value Reference Range Interpretation Comments CULTURE, URINE (test SPECIMEN NUMBER: code = 87490) [id number] CULTURE, [id number] 00:00:00 Test Item Value Reference Range Interpretation Comments CULTURE, URINE (test SPECIMEN NUMBER: code = 07321) [id number] BASIC METABOLIC [id number] 00:00:00 Test Item Value Reference Range Interpretation Comments GLUCOSE (test code = 2217) 135 MG/DL BUN (test code = 2208) 25 MG/DL CREATININE (test code = 2214) 0.76 MG/DL eGFR AMER. (test code 101 ML/MIN/1.73 = 04055) eGFR NON- AMER. (test 87 ML/MIN/1.73 code = 73664) SODIUM (test code = 2231) 139 MEQ/L POTASSIUM (test code = 2228) 4.7 MEQ/L CHLORIDE (test code = 2215) 99 MEQ/L CARBON DIOXIDE (test code = 26 MEQ/L 2206) CALCIUM (test code = 2209) 9.4 MG/DL BASIC METABOLIC [id number] 00:00:00 Test Item Value Reference Range Interpretation Comments GLUCOSE (test code = 2217) 135 MG/DL BUN (test code = 2208) 25 MG/DL CREATININE (test code = 2214) 0.76 MG/DL eGFR AMER. (test code 101 ML/MIN/1.73 = 56279) eGFR NON- AMER. (test 87 ML/MIN/1.73 code = 35625) SODIUM (test code = 2231) 139 MEQ/L POTASSIUM (test code = 2228) 4.7 MEQ/L CHLORIDE (test code = 2215) 99 MEQ/L CARBON DIOXIDE (test code = 26 MEQ/L 2206) CALCIUM (test code = 2209) 9.4 MG/DL LIPID [id number] 00:00:00 Test Item Value Reference Range Interpretation Comments CHOLESTEROL (test code = 2210) 262 MG/DL TRIGLYCERIDES (test code = 2232) 300 MG/DL HDL CHOLESTEROL (test code = 2220) 36 MG/DL CALC LDL CHOL (test code = 2237) 166 MG/DL RISK RATIO LDL/HDL (test code = 4.61 RATIO 2238) LIPID [id number] 00:00:00 Test Item Value Reference Range Interpretation Comments CHOLESTEROL (test code = 2210) 262 MG/DL TRIGLYCERIDES (test code = 2232) 300 MG/DL HDL CHOLESTEROL (test code = 2220) 36 MG/DL CALC LDL CHOL (test code = 2237) 166 MG/DL RISK RATIO LDL/HDL (test code = 4.61 RATIO 2238) HEMOGLOBIN [id number] 00:00:00 Test Item Value Reference Range Interpretation Comments HEMOGLOBIN A1c (test code = 22087) 6.2 % HEMOGLOBIN [id number] 00:00:00 Test Item Value Reference Range Interpretation Comments HEMOGLOBIN A1c (test code = 48256) 6.2 % HEMOGLOBIN [id number] 00:00:00 Test Item Value Reference Range Interpretation Comments HEMOGLOBIN A1c (test code = 60395) 6.2 % [id number] 00:00:00 Test Item Value Reference Range Interpretation Comments TSH, THIRD GENERATION (test code 0.988 UIU/ML = 2821) [id number] 00:00:00 Test Item Value Reference Range Interpretation Comments TSH, THIRD GENERATION (test code 0.988 UIU/ML = 2821) [id number] 00:00:00 Test Item Value Reference Range Interpretation Comments TSH, THIRD GENERATION (test code 0.988 UIU/ML = 2821) BASIC METABOLIC [id number] 00:00:00 Test Item Value Reference Range Interpretation Comments GLUCOSE (test code = 2217) 135 MG/DL BUN (test code = 2208) 25 MG/DL CREATININE (test code = 2214) 0.76 MG/DL eGFR AMER. (test code 101 ML/MIN/1.73 = 92619) eGFR NON- AMER. (test 87 ML/MIN/1.73 code = 10643) SODIUM (test code = 2231) 139 MEQ/L POTASSIUM (test code = 2228) 4.7 MEQ/L CHLORIDE (test code = 2215) 99 MEQ/L CARBON DIOXIDE (test code = 26 MEQ/L 2206) CALCIUM (test code = 2209) 9.4 MG/DL BASIC METABOLIC [id number] 00:00:00 Test Item Value Reference Range Interpretation Comments GLUCOSE (test code = 2217) 135 MG/DL BUN (test code = 2208) 25 MG/DL CREATININE (test code = 2214) 0.76 MG/DL eGFR AMER. (test code 101 ML/MIN/1.73 = 19796) eGFR NON- AMER. (test 87 ML/MIN/1.73 code = 24591) SODIUM (test code = 2231) 139 MEQ/L POTASSIUM (test code = 2228) 4.7 MEQ/L CHLORIDE (test code = 2215) 99 MEQ/L CARBON DIOXIDE (test code = 26 MEQ/L 2206) CALCIUM (test code = 2209) 9.4 MG/DL LIPID [id number] 00:00:00 Test Item Value Reference Range Interpretation Comments CHOLESTEROL (test code = 2210) 262 MG/DL TRIGLYCERIDES (test code = 2232) 300 MG/DL HDL CHOLESTEROL (test code = 2220) 36 MG/DL CALC LDL CHOL (test code = 2237) 166 MG/DL RISK RATIO LDL/HDL (test code = 4.61 RATIO 2238) LIPID [id number] 00:00:00 Test Item Value Reference Range Interpretation Comments CHOLESTEROL (test code = 2210) 262 MG/DL TRIGLYCERIDES (test code = 2232) 300 MG/DL HDL CHOLESTEROL (test code = 2220) 36 MG/DL CALC LDL CHOL (test code = 2237) 166 MG/DL RISK RATIO LDL/HDL (test code = 4.61 RATIO 2238) HEMOGLOBIN [id number] 00:00:00 Test Item Value Reference Range Interpretation Comments HEMOGLOBIN A1c (test code = 13373) 6.2 % HEMOGLOBIN [id number] 00:00:00 Test Item Value Reference Range Interpretation Comments HEMOGLOBIN A1c (test code = 31872) 6.2 % HEMOGLOBIN [id number] 00:00:00 Test Item Value Reference Range Interpretation Comments HEMOGLOBIN A1c (test code = 76503) 6.2 % [id number] 00:00:00 Test Item Value Reference Range Interpretation Comments TSH, THIRD GENERATION (test code 0.988 UIU/ML = 2821) [id number] 00:00:00 Test Item Value Reference Range Interpretation Comments TSH, THIRD GENERATION (test code 0.988 UIU/ML = 2821) [id number] 00:00:00 Test Item Value Reference Range Interpretation Comments TSH, THIRD GENERATION (test code 0.988 UIU/ML = 2821) BASIC METABOLIC [id number] 00:00:00 Test Item Value Reference Range Interpretation Comments GLUCOSE (test code = 2217) 135 MG/DL BUN (test code = 2208) 25 MG/DL CREATININE (test code = 2214) 0.76 MG/DL eGFR AMER. (test code 101 ML/MIN/1.73 = 81385) eGFR NON- AMER. (test 87 ML/MIN/1.73 code = 33968) SODIUM (test code = 2231) 139 MEQ/L POTASSIUM (test code = 2228) 4.7 MEQ/L CHLORIDE (test code = 2215) 99 MEQ/L CARBON DIOXIDE (test code = 26 MEQ/L 2206) CALCIUM (test code = 2209) 9.4 MG/DL LIPID [id number] 00:00:00 Test Item Value Reference Range Interpretation Comments CHOLESTEROL (test code = 2210) 262 MG/DL TRIGLYCERIDES (test code = 2232) 300 MG/DL HDL CHOLESTEROL (test code = 2220) 36 MG/DL CALC LDL CHOL (test code = 2237) 166 MG/DL RISK RATIO LDL/HDL (test code = 4.61 RATIO 2238) HEMOGLOBIN [id number] 00:00:00 Test Item Value Reference Range Interpretation Comments HEMOGLOBIN A1c (test code = 11705) 6.2 % HEMOGLOBIN [id number] 00:00:00 Test Item Value Reference Range Interpretation Comments HEMOGLOBIN A1c (test code = 45264) 6.2 % [id number] 00:00:00 Test Item Value Reference Range Interpretation Comments TSH, THIRD GENERATION (test code 0.988 UIU/ML = 2821) [id number] 00:00:00 Test Item Value Reference Range Interpretation Comments TSH, THIRD GENERATION (test code 0.988 UIU/ML = 2821) BASIC METABOLIC [id number] 00:00:00 Test Item Value Reference Range Interpretation Comments GLUCOSE (test code = 2217) 135 MG/DL BUN (test code = 2208) 25 MG/DL CREATININE (test code = 2214) 0.76 MG/DL eGFR AMER. (test code 101 ML/MIN/1.73 = 28565) eGFR NON- AMER. (test 87 ML/MIN/1.73 code = 41578) SODIUM (test code = 2231) 139 MEQ/L POTASSIUM (test code = 2228) 4.7 MEQ/L CHLORIDE (test code = 2215) 99 MEQ/L CARBON DIOXIDE (test code = 26 MEQ/L 2206) CALCIUM (test code = 2209) 9.4 MG/DL BASIC METABOLIC [id number] 00:00:00 Test Item Value Reference Range Interpretation Comments GLUCOSE (test code = 2217) 135 MG/DL BUN (test code = 2208) 25 MG/DL CREATININE (test code = 2214) 0.76 MG/DL eGFR AMER. (test code 101 ML/MIN/1.73 = 85753) eGFR NON- AMER. (test 87 ML/MIN/1.73 code = 05438) SODIUM (test code = 2231) 139 MEQ/L POTASSIUM (test code = 2228) 4.7 MEQ/L CHLORIDE (test code = 2215) 99 MEQ/L CARBON DIOXIDE (test code = 26 MEQ/L 2206) CALCIUM (test code = 2209) 9.4 MG/DL LIPID [id number] 00:00:00 Test Item Value Reference Range Interpretation Comments CHOLESTEROL (test code = 2210) 262 MG/DL TRIGLYCERIDES (test code = 2232) 300 MG/DL HDL CHOLESTEROL (test code = 2220) 36 MG/DL CALC LDL CHOL (test code = 2237) 166 MG/DL RISK RATIO LDL/HDL (test code = 4.61 RATIO 2238) LIPID [id number] 00:00:00 Test Item Value Reference Range Interpretation Comments CHOLESTEROL (test code = 2210) 262 MG/DL TRIGLYCERIDES (test code = 2232) 300 MG/DL HDL CHOLESTEROL (test code = 2220) 36 MG/DL CALC LDL CHOL (test code = 2237) 166 MG/DL RISK RATIO LDL/HDL (test code = 4.61 RATIO 2238) HEMOGLOBIN [id number] 00:00:00 Test Item Value Reference Range Interpretation Comments HEMOGLOBIN A1c (test code = 66687) 6.2 % HEMOGLOBIN [id number] 00:00:00 Test Item Value Reference Range Interpretation Comments HEMOGLOBIN A1c (test code = 55579) 6.2 % HEMOGLOBIN [id number] 00:00:00 Test Item Value Reference Range Interpretation Comments HEMOGLOBIN A1c (test code = 82101) 6.2 % [id number] 00:00:00 Test Item Value Reference Range Interpretation Comments TSH, THIRD GENERATION (test code 0.988 UIU/ML = 2821) [id number] 00:00:00 Test Item Value Reference Range Interpretation Comments TSH, THIRD GENERATION (test code 0.988 UIU/ML = 2821) [id number] 00:00:00 Test Item Value Reference Range Interpretation Comments TSH, THIRD GENERATION (test code 0.988 UIU/ML = 2821) COMPREHENSIVE METABOLIC [id number] 00:00:00 Test Item Value Reference Range Interpretation Comments GLUCOSE (test code = 2217) 109 MG/DL BUN (test code = 2208) 25 MG/DL CREATININE (test code = 2214) 0.78 MG/DL eGFR AMER. (test code 98 ML/MIN/1.73 = 99228) eGFR NON- AMER. (test 84 ML/MIN/1.73 code = 06124) CALC BUN/CREAT (test code = 32 RATIO [...] code = 2219) 25 U/L COMPREHENSIVE METABOLIC [id number] 00:00:00 Test Item Value Reference Range Interpretation Comments GLUCOSE (test code = 2217) 109 MG/DL BUN (test code = 2208) 25 MG/DL CREATININE (test code = 2214) 0.78 MG/DL eGFR AMER. (test code 98 ML/MIN/1.73 = 66536) eGFR NON- AMER. (test 84 ML/MIN/1.73 code = 91950) CALC BUN/CREAT (test code = 32 RATIO [...] (test code = 2219) 25 U/L LIPID [id number] 00:00:00 Test Item Value Reference Range Interpretation Comments CHOLESTEROL (test code = 2210) 295 MG/DL TRIGLYCERIDES (test code = 2232) 218 MG/DL HDL CHOLESTEROL (test code = 2220) 46 MG/DL CALC LDL CHOL (test code = 2237) 205 MG/DL RISK RATIO LDL/HDL (test code = 4.47 RATIO 2238) LIPID [id number] 00:00:00 Test Item Value Reference Range Interpretation Comments CHOLESTEROL (test code = 2210) 295 MG/DL TRIGLYCERIDES (test code = 2232) 218 MG/DL HDL CHOLESTEROL (test code = 2220) 46 MG/DL CALC LDL CHOL (test code = 2237) 205 MG/DL RISK RATIO LDL/HDL (test code = 4.47 RATIO 2238) HEMOGLOBIN [id number] 00:00:00 Test Item Value Reference Range Interpretation Comments HEMOGLOBIN A1c (test code = 16915) 7.0 % HEMOGLOBIN [id number] 00:00:00 Test Item Value Reference Range Interpretation Comments HEMOGLOBIN A1c (test code = 61949) 7.0 % HEMOGLOBIN [id number] 00:00:00 Test Item Value Reference Range Interpretation Comments HEMOGLOBIN A1c (test code = 44441) 7.0 % [id number] 00:00:00 Test Item Value Reference Range Interpretation Comments TSH, THIRD GENERATION (test code 0.565 UIU/ML = 2821) [id number] 00:00:00 Test Item Value Reference Range Interpretation Comments TSH, THIRD GENERATION (test code 0.565 UIU/ML = 2821) [id number] 00:00:00 Test Item Value Reference Range Interpretation Comments TSH, THIRD GENERATION (test code 0.565 UIU/ML = 2821) COMPREHENSIVE METABOLIC [id number] 00:00:00 Test Item Value Reference Range Interpretation Comments GLUCOSE (test code = 2217) 109 MG/DL BUN (test code = 2208) 25 MG/DL CREATININE (test code = 2214) 0.78 MG/DL eGFR AMER. (test code 98 ML/MIN/1.73 = 32290) eGFR NON- AMER. (test 84 ML/MIN/1.73 code = 32054) CALC BUN/CREAT (test code = 32 RATIO [...] code = 2219) 25 U/L COMPREHENSIVE METABOLIC [id number] 00:00:00 Test Item Value Reference Range Interpretation Comments GLUCOSE (test code = 2217) 109 MG/DL BUN (test code = 2208) 25 MG/DL CREATININE (test code = 2214) 0.78 MG/DL eGFR AMER. (test code 98 ML/MIN/1.73 = 34139) eGFR NON- AMER. (test 84 ML/MIN/1.73 code = 69695) CALC BUN/CREAT (test code = 32 RATIO [...] (test code = 2219) 25 U/L LIPID [id number] 00:00:00 Test Item Value Reference Range Interpretation Comments CHOLESTEROL (test code = 2210) 295 MG/DL TRIGLYCERIDES (test code = 2232) 218 MG/DL HDL CHOLESTEROL (test code = 2220) 46 MG/DL CALC LDL CHOL (test code = 2237) 205 MG/DL RISK RATIO LDL/HDL (test code = 4.47 RATIO 2238) LIPID [id number] 00:00:00 Test Item Value Reference Range Interpretation Comments CHOLESTEROL (test code = 2210) 295 MG/DL TRIGLYCERIDES (test code = 2232) 218 MG/DL HDL CHOLESTEROL (test code = 2220) 46 MG/DL CALC LDL CHOL (test code = 2237) 205 MG/DL RISK RATIO LDL/HDL (test code = 4.47 RATIO 2238) HEMOGLOBIN [id number] 00:00:00 Test Item Value Reference Range Interpretation Comments HEMOGLOBIN A1c (test code = 67690) 7.0 % HEMOGLOBIN [id number] 00:00:00 Test Item Value Reference Range Interpretation Comments HEMOGLOBIN A1c (test code = 91752) 7.0 % HEMOGLOBIN [id number] 00:00:00 Test Item Value Reference Range Interpretation Comments HEMOGLOBIN A1c (test code = 51323) 7.0 % [id number] 00:00:00 Test Item Value Reference Range Interpretation Comments TSH, THIRD GENERATION (test code 0.565 UIU/ML = 2821) [id number] 00:00:00 Test Item Value Reference Range Interpretation Comments TSH, THIRD GENERATION (test code 0.565 UIU/ML = 2821) [id number] 00:00:00 Test Item Value Reference Range Interpretation Comments TSH, THIRD GENERATION (test code 0.565 UIU/ML = 2821) COMPREHENSIVE METABOLIC [id number] 00:00:00 Test Item Value Reference Range Interpretation Comments GLUCOSE (test code = 2217) 109 MG/DL BUN (test code = 2208) 25 MG/DL CREATININE (test code = 2214) 0.78 MG/DL eGFR AMER. (test code 98 ML/MIN/1.73 = 73630) eGFR NON- AMER. (test 84 ML/MIN/1.73 code = 72617) CALC BUN/CREAT (test code = 32 RATIO [...] (test code = 2219) 25 U/L LIPID [id number] 00:00:00 Test Item Value Reference Range Interpretation Comments CHOLESTEROL (test code = 2210) 295 MG/DL TRIGLYCERIDES (test code = 2232) 218 MG/DL HDL CHOLESTEROL (test code = 2220) 46 MG/DL CALC LDL CHOL (test code = 2237) 205 MG/DL RISK RATIO LDL/HDL (test code = 4.47 RATIO 2237) HEMOGLOBIN [id number] 00:00:00 Test Item Value Reference Range Interpretation Comments HEMOGLOBIN A1c (test code = 63026) 7.0 % HEMOGLOBIN [id number] 00:00:00 Test Item Value Reference Range Interpretation Comments HEMOGLOBIN A1c (test code = 05424) 7.0 % [id number] 00:00:00 Test Item Value Reference Range Interpretation Comments TSH, THIRD GENERATION (test code 0.565 UIU/ML = 2821) [id number] 00:00:00 Test Item Value Reference Range Interpretation Comments TSH, THIRD GENERATION (test code 0.565 UIU/ML = 2821) COMPREHENSIVE METABOLIC [id number] 00:00:00 Test Item Value Reference Range Interpretation Comments GLUCOSE (test code = 2217) 109 MG/DL BUN (test code = 2208) 25 MG/DL CREATININE (test code = 2214) 0.78 MG/DL eGFR AMER. (test code 98 ML/MIN/1.73 = 13921) eGFR NON- AMER. (test 84 ML/MIN/1.73 code = 46886) CALC BUN/CREAT (test code = 32 RATIO 2235) SODIUM (test code = 2231) 139 MEQ/L POTASSIUM (test code = 2228) 4.5 MEQ/L CHLORIDE (test code = 2215) 96 MEQ/L CARBON DIOXIDE (test code = 27 MEQ/L 2205) CALCIUM (test code = 2209) 10.0 MG/DL PROTEIN, TOTAL (test code = 7.6 G/DL 2229) ALBUMIN (test code = 2201) 4.9 G/DL CALC GLOBULIN (test code = 2.7 G/DL 2240) CALC A/G RATIO (test code = 1.8 RATIO 2234) BILIRUBIN, TOTAL (test code = <0.2 MG/DL 2206) ALKALINE PHOSPHATASE (test 109 U/L code = 2204) AST (test code = 2218) 18 U/L ALT (test code = 2219) 25 U/L COMPREHENSIVE METABOLIC [id number] 00:00:00 Test Item Value Reference Range Interpretation Comments GLUCOSE (test code = 2217) 109 MG/DL BUN (test code = 2208) 25 MG/DL CREATININE (test code = 2214) 0.78 MG/DL eGFR AMER. (test code 98 ML/MIN/1.73 = 38356) eGFR NON- AMER. (test 84 ML/MIN/1.73 code = 55515) CALC BUN/CREAT (test code = 32 RATIO [...] (test code = 2219) 25 U/L LIPID [id number] 00:00:00 Test Item Value Reference Range Interpretation Comments CHOLESTEROL (test code = 2210) 295 MG/DL TRIGLYCERIDES (test code = 2232) 218 MG/DL HDL CHOLESTEROL (test code = 2220) 46 MG/DL CALC LDL CHOL (test code = 2237) 205 MG/DL RISK RATIO LDL/HDL (test code = 4.47 RATIO 2238) LIPID [id number] 00:00:00 Test Item Value Reference Range Interpretation Comments CHOLESTEROL (test code = 2210) 295 MG/DL TRIGLYCERIDES (test code = 2232) 218 MG/DL HDL CHOLESTEROL (test code = 2220) 46 MG/DL CALC LDL CHOL (test code = 2237) 205 MG/DL RISK RATIO LDL/HDL (test code = 4.47 RATIO 2238) HEMOGLOBIN [id number] 00:00:00 Test Item Value Reference Range Interpretation Comments HEMOGLOBIN A1c (test code = 71944) 7.0 % HEMOGLOBIN [id number] 00:00:00 Test Item Value Reference Range Interpretation Comments HEMOGLOBIN A1c (test code = 84508) 7.0 % HEMOGLOBIN [id number] 00:00:00 Test Item Value Reference Range Interpretation Comments HEMOGLOBIN A1c (test code = 96152) 7.0 % [id number] 00:00:00 Test Item Value Reference Range Interpretation Comments TSH, THIRD GENERATION (test code 0.565 UIU/ML = 2821) [id number] 00:00:00 Test Item Value Reference Range Interpretation Comments TSH, THIRD GENERATION (test code 0.565 UIU/ML = 2821) [id number] 00:00:00 Test Item Value Reference Range Interpretation Comments TSH, THIRD GENERATION (test code 0.565 UIU/ML = 2821) [id number] 00:00:00 Test Item Value Reference Range Interpretation Comments TSH, THIRD GENERATION (test code 0.379 UIU/ML = 2821) [id number] 00:00:00 Test Item Value Reference Range Interpretation Comments TSH, THIRD GENERATION (test code 0.379 UIU/ML = 2821) [id number] 00:00:00 Test Item Value Reference Range Interpretation Comments TSH, THIRD GENERATION (test code 0.379 UIU/ML = 2821) [id number] 00:00:00 Test Item Value Reference Range Interpretation Comments TSH, THIRD GENERATION (test code 0.379 UIU/ML = 2821) [id number] 00:00:00 Test Item Value Reference Range Interpretation Comments TSH, THIRD GENERATION (test code 0.379 UIU/ML = 2821) [id number] 00:00:00 Test Item Value Reference Range Interpretation Comments TSH, THIRD GENERATION (test code 0.379 UIU/ML = 2821) [id number] 00:00:00 Test Item Value Reference Range Interpretation Comments TSH, THIRD GENERATION (test code 0.379 UIU/ML = 2821) [id number] 00:00:00 Test Item Value Reference Range Interpretation Comments TSH, THIRD GENERATION (test code 0.379 UIU/ML = 2821) [id number] 00:00:00 Test Item Value Reference Range Interpretation Comments TSH, THIRD GENERATION (test code 0.379 UIU/ML = 2821) [id number] 00:00:00 Test Item Value Reference Range Interpretation Comments TSH, THIRD GENERATION (test code 0.379 UIU/ML = 2821) [id number] 00:00:00 Test Item Value Reference Range Interpretation Comments TSH, THIRD GENERATION (test code 0.379 UIU/ML = 2821) CULTURE, [id number] 00:00:00 Test Item Value Reference Range Interpretation Comments CULTURE, URINE (test SPECIMEN NUMBER: code = 41387) [id number] CULTURE, [id number] 00:00:00 Test Item Value Reference Range Interpretation Comments CULTURE, URINE (test SPECIMEN NUMBER: code = 08057) [id number] CULTURE, [id number] 00:00:00 Test Item Value Reference Range Interpretation Comments CULTURE, URINE (test SPECIMEN NUMBER: code = 53323) [id number] CULTURE, [id number] 00:00:00 Test Item Value Reference Range Interpretation Comments CULTURE, URINE (test SPECIMEN NUMBER: code = 60426) [id number] CULTURE, [id number] 00:00:00 Test Item Value Reference Range Interpretation Comments CULTURE, URINE (test SPECIMEN NUMBER: code = 68410) [id number] CULTURE, [id number] 00:00:00 Test Item Value Reference Range Interpretation Comments CULTURE, URINE (test SPECIMEN NUMBER: code = 10362) [id number] CULTURE, [id number] 00:00:00 Test Item Value Reference Range Interpretation Comments CULTURE, URINE (test SPECIMEN NUMBER: code = 14997) [id number] COMPREHENSIVE METABOLIC [id number] 00:00:00 Test Item Value Reference Range Interpretation Comments GLUCOSE (test code = 2217) 128 MG/DL BUN (test code = 2208) 26 MG/DL CREATININE (test code = 2214) 0.92 MG/DL eGFR AMER. (test code 81 ML/MIN/1.73 = 92450) eGFR NON- AMER. (test 70 ML/MIN/1.73 code = 32331) CALC BUN/CREAT (test code = 28 RATIO [...] code = 2219) 29 U/L COMPREHENSIVE METABOLIC [id number] 00:00:00 Test Item Value Reference Range Interpretation Comments GLUCOSE (test code = 2217) 128 MG/DL BUN (test code = 2208) 26 MG/DL CREATININE (test code = 2214) 0.92 MG/DL eGFR AMER. (test code 81 ML/MIN/1.73 = 45193) eGFR NON- AMER. (test 70 ML/MIN/1.73 code = 10644) CALC BUN/CREAT (test code = 28 RATIO [...] = <0.2 MG/DL 7) ALKALINE PHOSPHATASE (test 104 U/L code = 2204) AST (test code = 2218) 24 U/L ALT (test code = 2219) 29 U/L ACUTE HEPATITIS [id number] 00:00:00 Test Item Value Reference Range Interpretation Comments HEPATITIS A IgM (test code = NON-REACTIVE 03607) HEPATITIS B CORE IgM (test code NON-REACTIVE = 4644) HEPATITIS B SURF AG (test code = NON-REACTIVE 2739) HEPATITIS C ANTIBODY (test code NON-REACTIVE = 4675) INTERPRETATION HEPATITIS A: (NOTE) (test code = 2552) INTERPRETATION HEPATITIS B: (NOTE) (test code = 96029) INTERPRETATION HEPATITIS C: (NOTE) (test code = 53733) ACUTE HEPATITIS [id number] 00:00:00 Test Item Value Reference Range Interpretation Comments HEPATITIS A IgM (test code = NON-REACTIVE 59019) HEPATITIS B CORE IgM (test code NON-REACTIVE = 4644) HEPATITIS B SURF AG (test code = NON-REACTIVE 2739) HEPATITIS C ANTIBODY (test code NON-REACTIVE = 4675) INTERPRETATION HEPATITIS A: (NOTE) (test code = 2552) INTERPRETATION HEPATITIS B: (NOTE) (test code = 81981) INTERPRETATION HEPATITIS C: (NOTE) (test code = 91578) [id number] 00:00:00 Test Item Value Reference Range Interpretation Comments AMYLASE (test code = 2205) 32 U/L [id number] 00:00:00 Test Item Value Reference Range Interpretation Comments AMYLASE (test code = 2205) 32 U/L [id number] 00:00:00 Test Item Value Reference Range Interpretation Comments LIPASE (test code = 2058) 22 U/L [id number] 00:00:00 Test Item Value Reference Range Interpretation Comments LIPASE (test code = 2058) 22 U/L [id number] 00:00:00 Test Item Value Reference Range Interpretation Comments LIPASE (test code = 2058) 22 U/L COMPREHENSIVE METABOLIC [id number] 00:00:00 Test Item Value Reference Range Interpretation Comments GLUCOSE (test code = 2217) 128 MG/DL BUN (test code = 2208) 26 MG/DL CREATININE (test code = 2214) 0.92 MG/DL eGFR AMER. (test code 81 ML/MIN/1.73 = 43807) eGFR NON- AMER. (test 70 ML/MIN/1.73 code = 86393) CALC BUN/CREAT (test code = 28 RATIO [...] code = 2219) 29 U/L COMPREHENSIVE METABOLIC [id number] 00:00:00 Test Item Value Reference Range Interpretation Comments GLUCOSE (test code = 2217) 128 MG/DL BUN (test code = 2208) 26 MG/DL CREATININE (test code = 2214) 0.92 MG/DL eGFR AMER. (test code 81 ML/MIN/1.73 = 99966) eGFR NON- AMER. (test 70 ML/MIN/1.73 code = 73518) CALC BUN/CREAT (test code = 28 RATIO [...] code = 2219) 29 U/L ACUTE HEPATITIS [id number] 00:00:00 Test Item Value Reference Range Interpretation Comments HEPATITIS A IgM (test code = NON-REACTIVE 56068) HEPATITIS B CORE IgM (test code NON-REACTIVE = 4644) HEPATITIS B SURF AG (test code = NON-REACTIVE 2739) HEPATITIS C ANTIBODY (test code NON-REACTIVE = 4675) INTERPRETATION HEPATITIS A: (NOTE) (test code = 2552) INTERPRETATION HEPATITIS B: (NOTE) (test code = 41582) INTERPRETATION HEPATITIS C: (NOTE) (test code = 83038) ACUTE HEPATITIS [id number] 00:00:00 Test Item Value Reference Range Interpretation Comments HEPATITIS A IgM (test code = NON-REACTIVE 33436) HEPATITIS B CORE IgM (test code NON-REACTIVE = 4644) HEPATITIS B SURF AG (test code = NON-REACTIVE 2739) HEPATITIS C ANTIBODY (test code NON-REACTIVE = 4675) INTERPRETATION HEPATITIS A: (NOTE) (test code = 2552) INTERPRETATION HEPATITIS B: (NOTE) (test code = 36777) INTERPRETATION HEPATITIS C: (NOTE) (test code = 08693) [id number] 00:00:00 Test Item Value Reference Range Interpretation Comments AMYLASE (test code = 2205) 32 U/L [id number] 00:00:00 Test Item Value Reference Range Interpretation Comments AMYLASE (test code = 2205) 32 U/L [id number] 00:00:00 Test Item Value Reference Range Interpretation Comments LIPASE (test code = 2058) 22 U/L [id number] 00:00:00 Test Item Value Reference Range Interpretation Comments LIPASE (test code = 2058) 22 U/L [id number] 00:00:00 Test Item Value Reference Range Interpretation Comments LIPASE (test code = 2058) 22 U/L COMPREHENSIVE METABOLIC [id number] 00:00:00 Test Item Value Reference Range Interpretation Comments GLUCOSE (test code = 2217) 128 MG/DL BUN (test code = 2208) 26 MG/DL CREATININE (test code = 2214) 0.92 MG/DL eGFR AMER. (test code 81 ML/MIN/1.73 = 99246) eGFR NON- AMER. (test 70 ML/MIN/1.73 code = 26675) CALC BUN/CREAT (test code = 28 RATIO [...] code = 2219) 29 U/L ACUTE HEPATITIS [id number] 00:00:00 Test Item Value Reference Range Interpretation Comments HEPATITIS A IgM (test code = NON-REACTIVE 87538) HEPATITIS B CORE IgM (test code NON-REACTIVE = 4161) HEPATITIS B SURF AG (test code = NON-REACTIVE 0258) HEPATITIS C ANTIBODY (test code NON-REACTIVE = 0177) INTERPRETATION HEPATITIS A: (NOTE) (test code = 2552) INTERPRETATION HEPATITIS B: (NOTE) (test code = 69516) INTERPRETATION HEPATITIS C: (NOTE) (test code = 87709) [id number] 00:00:00 Test Item Value Reference Range Interpretation Comments AMYLASE (test code = 2205) 32 U/L [id number] 00:00:00 Test Item Value Reference Range Interpretation Comments LIPASE (test code = 2058) 22 U/L [id number] 00:00:00 Test Item Value Reference Range Interpretation Comments LIPASE (test code = 2058) 22 U/L COMPREHENSIVE METABOLIC [id number] 00:00:00 Test Item Value Reference Range Interpretation Comments GLUCOSE (test code = 2217) 128 MG/DL BUN (test code = 2208) 26 MG/DL CREATININE (test code = 2214) 0.92 MG/DL eGFR AMER. (test code 81 ML/MIN/1.73 = 43024) eGFR NON- AMER. (test 70 ML/MIN/1.73 code = 67351) CALC BUN/CREAT (test code = 28 RATIO [...] code = 2219) 29 U/L COMPREHENSIVE METABOLIC [id number] 00:00:00 Test Item Value Reference Range Interpretation Comments GLUCOSE (test code = 2217) 128 MG/DL BUN (test code = 2208) 26 MG/DL CREATININE (test code = 2214) 0.92 MG/DL eGFR AMER. (test code 81 ML/MIN/1.73 = 71519) eGFR NON- AMER. (test 70 ML/MIN/1.73 code = 21164) CALC BUN/CREAT (test code = 28 RATIO [...] code = 2219) 29 U/L ACUTE HEPATITIS [id number] 00:00:00 Test Item Value Reference Range Interpretation Comments HEPATITIS A IgM (test code = NON-REACTIVE 15688) HEPATITIS B CORE IgM (test code NON-REACTIVE = 4644) HEPATITIS B SURF AG (test code = NON-REACTIVE 2739) HEPATITIS C ANTIBODY (test code NON-REACTIVE = 4675) INTERPRETATION HEPATITIS A: (NOTE) (test code = 2552) INTERPRETATION HEPATITIS B: (NOTE) (test code = 97036) INTERPRETATION HEPATITIS C: (NOTE) (test code = 91692) ACUTE HEPATITIS [id number] 00:00:00 Test Item Value Reference Range Interpretation Comments HEPATITIS A IgM (test code = NON-REACTIVE 87115) HEPATITIS B CORE IgM (test code NON-REACTIVE = 4644) HEPATITIS B SURF AG (test code = NON-REACTIVE 2739) HEPATITIS C ANTIBODY (test code NON-REACTIVE = 4675) INTERPRETATION HEPATITIS A: (NOTE) (test code = 2552) INTERPRETATION HEPATITIS B: (NOTE) (test code = 89585) INTERPRETATION HEPATITIS C: (NOTE) (test code = 92857) [id number] 00:00:00 Test Item Value Reference Range Interpretation Comments AMYLASE (test code = 2205) 32 U/L [id number] 00:00:00 Test Item Value Reference Range Interpretation Comments AMYLASE (test code = 2205) 32 U/L [id number] 00:00:00 Test Item Value Reference Range Interpretation Comments LIPASE (test code = 2058) 22 U/L [id number] 00:00:00 Test Item Value Reference Range Interpretation Comments LIPASE (test code = 2058) 22 U/L [id number] 00:00:00 Test Item Value Reference Range Interpretation Comments LIPASE (test code = 2058) 22 U/L [id number] 00:00:00 Test Item Value Reference Range Interpretation Comments TSH, THIRD GENERATION (test code 4.890 UIU/ML = 2821) [id number] 00:00:00 Test Item Value Reference Range Interpretation Comments TSH, THIRD GENERATION (test code 4.890 UIU/ML = 2821) [id number] 00:00:00 Test Item Value Reference Range Interpretation Comments TSH, THIRD GENERATION (test code 4.890 UIU/ML = 2821) COMPREHENSIVE METABOLIC [id number] 00:00:00 Test Item Value Reference Range Interpretation Comments GLUCOSE (test code = 2217) 121 MG/DL BUN (test code = 2208) 40 MG/DL CREATININE (test code = 2214) 1.48 MG/DL eGFR AMER. (test code 45 ML/MIN/1.73 = 48027) eGFR NON- AMER. (test 39 ML/MIN/1.73 code = 54924) CALC BUN/CREAT (test code = 27 RATIO [...] code = 2219) 20 U/L COMPREHENSIVE METABOLIC [id number] 00:00:00 Test Item Value Reference Range Interpretation Comments GLUCOSE (test code = 2217) 121 MG/DL BUN (test code = 2208) 40 MG/DL CREATININE (test code = 2214) 1.48 MG/DL eGFR AMER. (test code 45 ML/MIN/1.73 = 30717) eGFR NON- AMER. (test 39 ML/MIN/1.73 code = 93193) CALC BUN/CREAT (test code = 27 RATIO [...] ALT (test code = 2219) 20 U/L [id number] 00:00:00 Test Item Value Reference Range Interpretation Comments TSH, THIRD GENERATION (test code 4.890 UIU/ML = 2821) [id number] 00:00:00 Test Item Value Reference Range Interpretation Comments TSH, THIRD GENERATION (test code 4.890 UIU/ML = 2821) [id number] 00:00:00 Test Item Value Reference Range Interpretation Comments TSH, THIRD GENERATION (test code 4.890 UIU/ML = 2821) COMPREHENSIVE METABOLIC [id number] 00:00:00 Test Item Value Reference Range Interpretation Comments GLUCOSE (test code = 2217) 121 MG/DL BUN (test code = 2208) 40 MG/DL CREATININE (test code = 2214) 1.48 MG/DL eGFR AMER. (test code 45 ML/MIN/1.73 = 21590) eGFR NON- AMER. (test 39 ML/MIN/1.73 code = 38987) CALC BUN/CREAT (test code = 27 RATIO [...] code = 2219) 20 U/L COMPREHENSIVE METABOLIC [id number] 00:00:00 Test Item Value Reference Range Interpretation Comments GLUCOSE (test code = 2217) 121 MG/DL BUN (test code = 2208) 40 MG/DL CREATININE (test code = 2214) 1.48 MG/DL eGFR AMER. (test code 45 ML/MIN/1.73 = 79147) eGFR NON- AMER. (test 39 ML/MIN/1.73 code = 54787) CALC BUN/CREAT (test code = 27 RATIO [...] ALT (test code = 2219) 20 U/L [id number] 00:00:00 Test Item Value Reference Range Interpretation Comments TSH, THIRD GENERATION (test code 4.890 UIU/ML = 2821) [id number] 00:00:00 Test Item Value Reference Range Interpretation Comments TSH, THIRD GENERATION (test code 4.890 UIU/ML = 2821) COMPREHENSIVE METABOLIC [id number] 00:00:00 Test Item Value Reference Range Interpretation Comments GLUCOSE (test code = 2217) 121 MG/DL BUN (test code = 2208) 40 MG/DL CREATININE (test code = 2214) 1.48 MG/DL eGFR AMER. (test code 45 ML/MIN/1.73 = 51966) eGFR NON- AMER. (test 39 ML/MIN/1.73 code = 20557) CALC BUN/CREAT (test code = 27 RATIO [...] ALT (test code = 2219) 20 U/L [id number] 00:00:00 Test Item Value Reference Range Interpretation Comments TSH, THIRD GENERATION (test code 4.890 UIU/ML = 2821) [id number] 00:00:00 Test Item Value Reference Range Interpretation Comments TSH, THIRD GENERATION (test code 4.890 UIU/ML = 2821) [id number] 00:00:00 Test Item Value Reference Range Interpretation Comments TSH, THIRD GENERATION (test code 4.890 UIU/ML = 2821) COMPREHENSIVE METABOLIC [id number] 00:00:00 Test Item Value Reference Range Interpretation Comments GLUCOSE (test code = 2217) 121 MG/DL BUN (test code = 2208) 40 MG/DL CREATININE (test code = 2214) 1.48 MG/DL eGFR AMER. (test code 45 ML/MIN/1.73 = 21406) eGFR NON- AMER. (test 39 ML/MIN/1.73 code = 75362) CALC BUN/CREAT (test code = 27 RATIO [...] code = 2219) 20 U/L COMPREHENSIVE METABOLIC [id number] 00:00:00 Test Item Value Reference Range Interpretation Comments GLUCOSE (test code = 2217) 121 MG/DL BUN (test code = 2208) 40 MG/DL CREATININE (test code = 2214) 1.48 MG/DL eGFR AMER. (test code 45 ML/MIN/1.73 = 14658) eGFR NON- AMER. (test 39 ML/MIN/1.73 code = 21533) CALC BUN/CREAT (test code = 27 RATIO [...] (test code = 2219) 20 U/L LIPID [id number] 00:00:00 Test Item Value Reference Range Interpretation Comments CHOLESTEROL (test code = 2210) 261 MG/DL TRIGLYCERIDES (test code = 2232) 165 MG/DL HDL CHOLESTEROL (test code = 2220) 58 MG/DL CALC LDL CHOL (test code = 2237) 170 MG/DL RISK RATIO LDL/HDL (test code = 2.93 RATIO 2238) LIPID [id number] 00:00:00 Test Item Value Reference Range Interpretation Comments CHOLESTEROL (test code = 2210) 261 MG/DL TRIGLYCERIDES (test code = 2232) 165 MG/DL HDL CHOLESTEROL (test code = 2220) 58 MG/DL CALC LDL CHOL (test code = 2237) 170 MG/DL RISK RATIO LDL/HDL (test code = 2.93 RATIO 2238) CBC W/AUTO [id number] 00:00:00 Test Item Value Reference Range Interpretation [...] code = 1015) 378 K/UL CBC W/AUTO [id number] 00:00:00 Test Item Value Reference Range Interpretation [...] code = 1015) 378 K/UL CBC W/AUTO [id number] 00:00:00 Test Item Value Reference Range Interpretation [...] (test code = 1015) 378 K/UL HEMOGLOBIN [id number] 00:00:00 Test Item Value Reference Range Interpretation Comments HEMOGLOBIN A1c (test code = 29776) 6.4 % HEMOGLOBIN [id number] 00:00:00 Test Item Value Reference Range Interpretation Comments HEMOGLOBIN A1c (test code = 74458) 6.4 % HEMOGLOBIN [id number] 00:00:00 Test Item Value Reference Range Interpretation Comments HEMOGLOBIN A1c (test code = 42660) 6.4 % [id number] 00:00:00 Test Item Value Reference Range Interpretation Comments TSH (test code = 2821) 5.290 UIU/ML [id number] 00:00:00 Test Item Value Reference Range Interpretation Comments TSH (test code = 2821) 5.290 UIU/ML [id number] 00:00:00 Test Item Value Reference Range Interpretation Comments TSH (test code = 2821) 5.290 UIU/ML LIPID [id number] 00:00:00 Test Item Value Reference Range Interpretation Comments CHOLESTEROL (test code = 2210) 261 MG/DL TRIGLYCERIDES (test code = 2232) 165 MG/DL HDL CHOLESTEROL (test code = 2220) 58 MG/DL CALC LDL CHOL (test code = 2237) 170 MG/DL RISK RATIO LDL/HDL (test code = 2.93 RATIO 2238) LIPID [id number] 00:00:00 Test Item Value Reference Range Interpretation Comments CHOLESTEROL (test code = 2210) 261 MG/DL TRIGLYCERIDES (test code = 2232) 165 MG/DL HDL CHOLESTEROL (test code = 2220) 58 MG/DL CALC LDL CHOL (test code = 2237) 170 MG/DL RISK RATIO LDL/HDL (test code = 2.93 RATIO 2238) CBC W/AUTO [id number] 00:00:00 Test Item Value Reference Range Interpretation [...] code = 1015) 378 K/UL CBC W/AUTO [id number] 00:00:00 Test Item Value Reference Range Interpretation [...] code = 1015) 378 K/UL CBC W/AUTO [id number] 00:00:00 Test Item Value Reference Range Interpretation [...] (test code = 1015) 378 K/UL HEMOGLOBIN [id number] 00:00:00 Test Item Value Reference Range Interpretation Comments HEMOGLOBIN A1c (test code = 11521) 6.4 % HEMOGLOBIN [id number] 00:00:00 Test Item Value Reference Range Interpretation Comments HEMOGLOBIN A1c (test code = 96647) 6.4 % HEMOGLOBIN [id number] 00:00:00 Test Item Value Reference Range Interpretation Comments HEMOGLOBIN A1c (test code = 73484) 6.4 % [id number] 00:00:00 Test Item Value Reference Range Interpretation Comments TSH (test code = 2821) 5.290 UIU/ML [id number] 00:00:00 Test Item Value Reference Range Interpretation Comments TSH (test code = 2821) 5.290 UIU/ML [id number] 00:00:00 Test Item Value Reference Range Interpretation Comments TSH (test code = 2821) 5.290 UIU/ML LIPID [id number] 00:00:00 Test Item Value Reference Range Interpretation Comments CHOLESTEROL (test code = 2210) 261 MG/DL TRIGLYCERIDES (test code = 2232) 165 MG/DL HDL CHOLESTEROL (test code = 2220) 58 MG/DL CALC LDL CHOL (test code = 2237) 170 MG/DL RISK RATIO LDL/HDL (test code = 2.93 RATIO 2238) CBC W/AUTO [id number] 00:00:00 Test Item Value Reference Range Interpretation [...] code = 1015) 378 K/UL CBC W/AUTO [id number] 00:00:00 Test Item Value Reference Range Interpretation [...] (test code = 1015) 378 K/UL HEMOGLOBIN [id number] 00:00:00 Test Item Value Reference Range Interpretation Comments HEMOGLOBIN A1c (test code = 55420) 6.4 % HEMOGLOBIN [id number] 00:00:00 Test Item Value Reference Range Interpretation Comments HEMOGLOBIN A1c (test code = 39116) 6.4 % [id number] 00:00:00 Test Item Value Reference Range Interpretation Comments TSH (test code = 2821) 5.290 UIU/ML [id number] 00:00:00 Test Item Value Reference Range Interpretation Comments TSH (test code = 2821) 5.290 UIU/ML LIPID [id number] 00:00:00 Test Item Value Reference Range Interpretation Comments CHOLESTEROL (test code = 2210) 261 MG/DL TRIGLYCERIDES (test code = 2232) 165 MG/DL HDL CHOLESTEROL (test code = 2220) 58 MG/DL CALC LDL CHOL (test code = 2237) 170 MG/DL RISK RATIO LDL/HDL (test code = 2.93 RATIO 2238) LIPID [id number] 00:00:00 Test Item Value Reference Range Interpretation Comments CHOLESTEROL (test code = 2210) 261 MG/DL TRIGLYCERIDES (test code = 2232) 165 MG/DL HDL CHOLESTEROL (test code = 2220) 58 MG/DL CALC LDL CHOL (test code = 2237) 170 MG/DL RISK RATIO LDL/HDL (test code = 2.93 RATIO 2238) CBC W/AUTO [id number] 00:00:00 Test Item Value Reference Range Interpretation [...] code = 1015) 378 K/UL CBC W/AUTO [id number] 00:00:00 Test Item Value Reference Range Interpretation [...] code = 1015) 378 K/UL CBC W/AUTO [id number] 00:00:00 Test Item Value Reference Range Interpretation [...] (test code = 1015) 378 K/UL HEMOGLOBIN [id number] 00:00:00 Test Item Value Reference Range Interpretation Comments HEMOGLOBIN A1c (test code = 44194) 6.4 % HEMOGLOBIN [id number] 00:00:00 Test Item Value Reference Range Interpretation Comments HEMOGLOBIN A1c (test code = 23416) 6.4 % HEMOGLOBIN [id number] 00:00:00 Test Item Value Reference Range Interpretation Comments HEMOGLOBIN A1c (test code = 82000) 6.4 % [id number] 00:00:00 Test Item Value Reference Range Interpretation Comments TSH (test code = 2821) 5.290 UIU/ML [id number] 00:00:00 Test Item Value Reference Range Interpretation Comments TSH (test code = 2821) 5.290 UIU/ML [id number] 00:00:00 Test Item Value Reference Range Interpretation Comments TSH (test code = 2821) 5.290 UIU/ML THYROID II PROFILE (T3U, T4, T7, TSH)[id number] 00:00:00 Test Item Value Reference Range Interpretation Comments T3 UPTAKE (test code = 2817) 32.3 % T4 (THYROXINE) (test code = 5.2 UG/DL 2819) CALCULATED T7 (FTI) (test code = 1.68 3910) TSH (test code = 2821) 1.030 UIU/ML [...] code = 2821) 1.030 UIU/ML COMPREHENSIVE METABOLIC [id number] 00:00:00 Test Item Value Reference Range Interpretation Comments GLUCOSE (test code = 2217) 106 MG/DL BUN (test code = 2208) 23 MG/DL CREATININE (test code = 2214) 0.66 MG/DL eGFR AMER. (test code 114 ML/MIN/1.73 = 36803) eGFR NON- AMER. (test 99 ML/MIN/1.73 code = 01770) CALC BUN/CREAT (test code = 35 RATIO [...] code = 2219) 31 U/L COMPREHENSIVE METABOLIC [id number] 00:00:00 Test Item Value Reference Range Interpretation Comments GLUCOSE (test code = 2217) 106 MG/DL BUN (test code = 2208) 23 MG/DL CREATININE (test code = 2214) 0.66 MG/DL eGFR AMER. (test code 114 ML/MIN/1.73 = 73692) eGFR NON- AMER. (test 99 ML/MIN/1.73 code = 45175) CALC BUN/CREAT (test code = 35 RATIO [...] code = 2821) 0.335 UIU/ML COMPREHENSIVE METABOLIC [id number] 00:00:00 Test Item Value Reference Range Interpretation Comments GLUCOSE (test code = 2217) 106 MG/DL BUN (test code = 2208) 23 MG/DL CREATININE (test code = 2214) 0.66 MG/DL eGFR AMER. (test code 114 ML/MIN/1.73 = 48659) eGFR NON- AMER. (test 99 ML/MIN/1.73 code = 32256) CALC BUN/CREAT (test code = 35 RATIO [...] code = 2219) 31 U/L COMPREHENSIVE METABOLIC [id number] 00:00:00 Test Item Value Reference Range Interpretation Comments GLUCOSE (test code = 2217) 106 MG/DL BUN (test code = 2208) 23 MG/DL CREATININE (test code = 2214) 0.66 MG/DL eGFR AMER. (test code 114 ML/MIN/1.73 = 65965) eGFR NON- AMER. (test 99 ML/MIN/1.73 code = 10385) CALC BUN/CREAT (test code = 35 RATIO [...] CALCULATED T7 (FTI) (test code = 1.71 6860) TSH (test code = 2821) 0.335 UIU/ML THYROID II PROFILE (T3U, T4, T7, TSH)[id number] 00:00:00 Test Item Value Reference Range Interpretation Comments T3 UPTAKE (test code = 2817) 31.6 % T4 (THYROXINE) (test code = 5.4 UG/DL 281) CALCULATED T7 (FTI) (test code = 1.71 2820) TSH (test code = 2821) 0.335 UIU/ML COMPREHENSIVE METABOLIC [id number] 00:00:00 Test Item Value Reference Range Interpretation Comments GLUCOSE (test code = 2217) 106 MG/DL BUN (test code = 2208) 23 MG/DL CREATININE (test code = 2214) 0.66 MG/DL eGFR AMER. (test code 114 ML/MIN/1.73 = 90513) eGFR NON- AMER. (test 99 ML/MIN/1.73 code = 75823) CALC BUN/CREAT (test code = 35 RATIO [...] code = 2821) 0.335 UIU/ML COMPREHENSIVE METABOLIC [id number] 00:00:00 Test Item Value Reference Range Interpretation Comments GLUCOSE (test code = 2217) 106 MG/DL BUN (test code = 2208) 23 MG/DL CREATININE (test code = 2214) 0.66 MG/DL eGFR AMER. (test code 114 ML/MIN/1.73 = 52393) eGFR NON- AMER. (test 99 ML/MIN/1.73 code = 86884) CALC BUN/CREAT (test code = 35 RATIO [...] code = 2219) 31 U/L COMPREHENSIVE METABOLIC [id number] 00:00:00 Test Item Value Reference Range Interpretation Comments GLUCOSE (test code = 2217) 106 MG/DL BUN (test code = 2208) 23 MG/DL CREATININE (test code = 2214) 0.66 MG/DL eGFR AMER. (test code 114 ML/MIN/1.73 = 96479) eGFR NON- AMER. (test 99 ML/MIN/1.73 code = 83864) CALC BUN/CREAT (test code = 35 RATIO [...] code = 2821) 0.335 UIU/ML COMPREHENSIVE METABOLIC [id number] 00:00:00 Test Item Value Reference Range Interpretation Comments GLUCOSE (test code = 2217) 103 MG/DL BUN (test code = 2208) 15 MG/DL CREATININE (test code = 2214) 0.77 MG/DL eGFR AMER. (test code 101 ML/MIN/1.73 = 95090) eGFR NON- AMER. (test 87 ML/MIN/1.73 code = 81459) CALC BUN/CREAT (test code = 19 RATIO [...] code = 2219) 24 U/L COMPREHENSIVE METABOLIC [id number] 00:00:00 Test Item Value Reference Range Interpretation Comments GLUCOSE (test code = 2217) 103 MG/DL BUN (test code = 2208) 15 MG/DL CREATININE (test code = 2214) 0.77 MG/DL eGFR AMER. (test code 101 ML/MIN/1.73 = 72470) eGFR NON- AMER. (test 87 ML/MIN/1.73 code = 24620) CALC BUN/CREAT (test code = 19 RATIO [...] code = 2821) 0.424 UIU/ML COMPREHENSIVE METABOLIC [id number] 00:00:00 Test Item Value Reference Range Interpretation Comments GLUCOSE (test code = 2217) 103 MG/DL BUN (test code = 2208) 15 MG/DL CREATININE (test code = 2214) 0.77 MG/DL eGFR AMER. (test code 101 ML/MIN/1.73 = 49914) eGFR NON- AMER. (test 87 ML/MIN/1.73 code = 63255) CALC BUN/CREAT (test code = 19 RATIO [...] code = 2219) 24 U/L COMPREHENSIVE METABOLIC [id number] 00:00:00 Test Item Value Reference Range Interpretation Comments GLUCOSE (test code = 2217) 103 MG/DL BUN (test code = 2208) 15 MG/DL CREATININE (test code = 2214) 0.77 MG/DL eGFR AMER. (test code 101 ML/MIN/1.73 = 87938) eGFR NON- AMER. (test 87 ML/MIN/1.73 code = 74874) CALC BUN/CREAT (test code = 19 RATIO [...] code = 2821) 0.424 UIU/ML COMPREHENSIVE METABOLIC [id number] 00:00:00 Test Item Value Reference Range Interpretation Comments GLUCOSE (test code = 2217) 103 MG/DL BUN (test code = 2208) 15 MG/DL CREATININE (test code = 2214) 0.77 MG/DL eGFR AMER. (test code 101 ML/MIN/1.73 = 60913) eGFR NON- AMER. (test 87 ML/MIN/1.73 code = 08090) CALC BUN/CREAT (test code = 19 RATIO [...] code = 2821) 0.424 UIU/ML COMPREHENSIVE METABOLIC [id number] 00:00:00 Test Item Value Reference Range Interpretation Comments GLUCOSE (test code = 2217) 103 MG/DL BUN (test code = 2208) 15 MG/DL CREATININE (test code = 2214) 0.77 MG/DL eGFR AMER. (test code 101 ML/MIN/1.73 = 34443) eGFR NON- AMER. (test 87 ML/MIN/1.73 code = 71925) CALC BUN/CREAT (test code = 19 RATIO [...] code = 2219) 24 U/L COMPREHENSIVE METABOLIC [id number] 00:00:00 Test Item Value Reference Range Interpretation Comments GLUCOSE (test code = 2217) 103 MG/DL BUN (test code = 2208) 15 MG/DL CREATININE (test code = 2214) 0.77 MG/DL eGFR AMER. (test code 101 ML/MIN/1.73 = 11914) eGFR NON- AMER. (test 87 ML/MIN/1.73 code = 49509) CALC BUN/CREAT (test code = 19 RATIO [...] (test code = 2821) 0.424 UIU/ML CULTURE, [id number] 00:00:00 Test Item Value Reference Range Interpretation Comments CULTURE, URINE (test SPECIMEN NUMBER: code = 78334) [id number] CULTURE, [id number] 00:00:00 Test Item Value Reference Range Interpretation Comments CULTURE, URINE (test SPECIMEN NUMBER: code = 62060) [id number] CULTURE, [id number] 00:00:00 Test Item Value Reference Range Interpretation Comments CULTURE, URINE (test SPECIMEN NUMBER: code = 87031) [id number] CULTURE, [id number] 00:00:00 Test Item Value Reference Range Interpretation Comments CULTURE, URINE (test SPECIMEN NUMBER: code = 62783) [id number] CULTURE, [id number] 00:00:00 Test Item Value Reference Range Interpretation Comments CULTURE, URINE (test SPECIMEN NUMBER: code = 26832) [id number] CULTURE, [id number] 00:00:00 Test Item Value Reference Range Interpretation Comments CULTURE, URINE (test SPECIMEN NUMBER: code = 77827) [id number] CULTURE, [id number] 00:00:00 Test Item Value Reference Range Interpretation Comments CULTURE, URINE (test SPECIMEN NUMBER: code = 53159) [id number] CULTURE, [id number] 00:00:00 Test Item Value Reference Range Interpretation Comments CULTURE, URINE (test SPECIMEN NUMBER: code = 96679) [id number] CULTURE, [id number] 00:00:00 Test Item Value Reference Range Interpretation Comments CULTURE, URINE (test SPECIMEN NUMBER: code = 37914) [id number] CULTURE, [id number] 00:00:00 Test Item Value Reference Range Interpretation Comments CULTURE, URINE (test SPECIMEN NUMBER: code = 57786) [id number] CULTURE, [id number] 00:00:00 Test Item Value Reference Range Interpretation Comments CULTURE, URINE (test SPECIMEN NUMBER: code = 95187) [id number] CULTURE, [id number] 00:00:00 Test Item Value Reference Range Interpretation Comments CULTURE, URINE (test SPECIMEN NUMBER: code = 51362) [id number] CULTURE, [id number] 00:00:00 Test Item Value Reference Range Interpretation Comments CULTURE, URINE (test SPECIMEN NUMBER: code = 90443) [id number] CULTURE, [id number] 00:00:00 Test Item Value Reference Range Interpretation Comments CULTURE, URINE (test SPECIMEN NUMBER: code = 60377) [id number]
[2022-03-19] MEDS ORDERED: KETOROLAC 30 MG/ML INJ ONE (05:48)
[2022-03-19] MEDS ORDERED: NA CHLORIDE 0.9% 1,000 ML ONE (05:48)
[2022-03-19] MEDS ORDERED: ONDANSETRON 4 MG/2 ML VIAL ONE (05:48)
[2022-03-19] MEDS ORDERED: DICYCLOMINE HCL 20 MG/2 ML AMP IM ONE (05:50)
[2022-03-19 05:52] LABS: Absolute Lymphocytes (CBC) 2.4 K/uL (0.7-4.9); Hematocrit 38.9 % (36.0-45.0); Lymphocytes % 28.7 % (15.3-44.8); MCV 92.3 fL (80-100); MPV 7.1 fL (7.6-11.3); RBC Red Blood Cell Count 4.22 M/uL (3.86-4.86)
[2022-03-19 06:00] LABS: Urine Blood Negative (Negative); Urine Glucose Negative (Negative); Urine Protein 1+ (Negative)
[2022-03-19 06:04] LABS: Albumin 3.8 g/dL (3.4-5.0); Bilirubin Total 0.3 mg/dL (0.2-1.0); Potassium 3.6 mmol/L (3.5-5.1); Protein, Total 7.9 g/dL (6.4-8.2)
[2022-03-19 06:07] LABS: Urine Bacteria <20 /HPF (<20); Urine Mucus 4+ /HPF (None Seen)
--- NOTE | 2022-03-19 06:24 | ER ---
Nurse's Notes [facility] Name: Jaimie Amanda Age: 61 yrs Sex: Female : 1960 Arrival Date: 03/19/2022 Time: 05:08 Bed 13 Private MD: Diagnosis: Abdominal pain, unspecified;Nausea with vomiting, unspecified Presentation: 03/19 05:19 Chief complaint: Patient states: she is having "bad" abdominal pain with vomiting for bb the last 2 to 3 hours she also had abdominal pain yesterday. Coronavirus screen: At this time, the client does not indicate any symptoms associated with coronavirus-19. Ebola Screen: No symptoms or risks identified at this time. Initial Sepsis Screen: Does the patient meet any 2 criteria? No. Patient's initial sepsis screen is negative. Does the patient have a suspected source of infection? No. Patient's initial sepsis screen is negative. Risk Assessment: Do you want to hurt yourself or someone else? Patient reports no desire to harm self or others. Onset of symptoms was March 18, 2022. 05:19 Method Of Arrival: Ambulatory bb 05:19 Acuity: ZHEN 3 bb Historical: - Allergies: 05:21 No Known Allergies; bb - Home Meds: 05:21 Unable to obtain [Active]; bb - PMHx: 05:21 Anxiety; Chronic Abdominal Pain; Hypertensive disorder; Hypothyroidism; low NA; NIDDM; bb - PSHx: 05:21 Thyroidectomy; bb - Immunization history:: Moderna x 3. - Social history:: Smoking status: Patient reports the use of cigarette tobacco products. - Family history:: not pertinent. Screenin:02 Abuse screen: Denies threats or abuse. Denies injuries from another. Nutritional aa9 screening: Has had N/V for 3 or more days. Tuberculosis screening: No symptoms or risk factors identified. 06:31 [facility] ED Fall Risk Assessment (Adult) History of falling in the last 3 months, aa9 including since admission No falls in past 3 months (0 pts) Confusion or Disorientation No (0 pts) Intoxicated or Sedated No (0 pts) Impaired Gait No (0 pts) Mobility Assist Device Used No (0 pt) Altered Elimination No (0 pt). Assessment: 05:59 General: Appears in no apparent distress. uncomfortable, Behavior is cooperative, aa9 appropriate for age. Pain: Complains of pain in right upper quadrant and right lower quadrant Pain currently is 10 out of 10 on a pain scale. Also complains of nausea. Neuro: Level of Consciousness is awake, alert, obeys commands, Oriented to person, place, time, situation. Cardiovascular: Patient's skin is warm and dry. Respiratory: Airway is patent Respiratory effort is even, unlabored. GI: Bowel sounds hyperactive in right upper quadrant, left upper quadrant, right lower quadrant and left lower quadrant Abd is soft X 4 quads Abdomen is tender to palpation in right upper quadrant and right lower quadrant. : No signs and/or symptoms were reported regarding the genitourinary system. Derm: Skin is intact, is healthy with good turgor. Vital Signs: 05:19 BP 175 / 99; Pulse 95; Resp 20 S; Temp 99.2(O); Pulse Ox 96% on R/A; Weight 70.31 kg bb (R); Height 5 ft. 5 in. (165.10 cm) (R); Pain 8/10; 06:11 BP 177 / 102; Pulse 83; Resp 19 S; Pulse Ox 99% on R/A; aa9 05:19 Body Mass Index 25.79 (70.31 kg, 165.10 cm) bb ED Course: 05:08 Patient arrived in ED. [id number] 05:11 Beulah Francis, RN is Primary Nurse. aa9 05:21 Triage completed. bb 05:21 Arm band placed on Patient placed in an exam room, on a stretcher, on pulse oximetry. bb 05:27 Jey White MD is Attending Physician. rt 05:43 Inserted saline lock: 20 gauge in right antecubital area, using aseptic technique. aa9 Blood collected. 05:44 Lipase Sent. aa9 05:44 CMP Sent. aa9 05:44 CBC with Diff Sent. aa9 06:02 Patient has correct armband on for positive identification. Placed in gown. Bed in low aa9 position. Call light in reach. Side rails up X2. Pulse ox on. NIBP on. 06:30 No provider procedures requiring assistance completed. IV discontinued, intact, aa9 bleeding controlled, No redness/swelling at site. Pressure dressing applied. Administered Medications: 05:53 Drug: Ketorolac 30 mg Route: IVP; Site: right antecubital; aa9 06:08 Follow up: Response: No adverse reaction aa9 05:53 Drug: NS 0.9% 1000 ml Route: IV; Rate: 1 bolus; Site: right antecubital; aa9 06:32 Follow up: Response: No adverse reaction; IV Status: Completed infusion; IV Intake: aa9 500ml 05:53 Drug: Zofran (Ondansetron) 4 mg Route: IVP; Site: right antecubital; aa9 06:08 Follow up: Response: No adverse reaction aa9 05:59 Drug: Bentyl (dicyclomine) 20 mg Route: IM; Site: left gluteus; aa9 06:08 Follow up: Response: No adverse reaction aa9 Medication: 06:02 VIS not applicable for this client. aa9 Intake: 06:32 IV: 500ml; Total: 500ml. aa9 Outcome: 06:23 Discharge ordered by . rt 06:31 Discharged to home ambulatory. aa9 06:31 Condition: stable 06:31 Discharge instructions given to patient, Instructed on discharge instructions, follow up and referral plans. medication usage, Demonstrated understanding of instructions, follow-up care, medications, Prescriptions given X 2. 06:31 Patient left the ED. aa9 Signatures: Stephanie Peter RN RN Viridiana Paulino [email or web address] Beulah Francis RN RN aa9 Jey White MD MD rt
--- NOTE | 2022-03-19 06:24 | EDPHYS ---
Physician Documentation [facility] Name: Jaimie Amanda Age: 61 yrs Sex: Female : 1960 Arrival Date: 03/19/2022 Time: 05:08 Bed 13 Private MD: COSTA Physician Jey White HPI: 03/19 06:29 This 61 yrs old Female presents to ER via Ambulatory with complaints of Abdominal Pain, rt Nausea/Vomiting. 06:29 The patient presents to the emergency department with nausea, vomiting, abdominal pain. rt Onset: The symptoms/episode began/occurred gradually, 1 day(s) ago. Associated signs and symptoms: Pertinent positives: abdominal pain. Severity of symptoms: At their worst the symptoms were moderate. Patient with chronic abdominal pain presents to the ED with a worsening of her chronic abdominal pain, essentially localized, not radiating, aching nature, moderate in severity. She reports nausea with vomiting. She denies other acute complaints at this time, symptoms are moderate severity, no other aggravating leaving factors. She did not take anything for symptoms.. Historical: - Allergies: 05:21 No Known Allergies; bb - Home Meds: 05:21 Unable to obtain [Active]; bb - PMHx: 05:21 Anxiety; Chronic Abdominal Pain; Hypertensive disorder; Hypothyroidism; low NA; NIDDM; bb - PSHx: 05:21 Thyroidectomy; bb - Immunization history:: Moderna x 3. - Social history:: Smoking status: Patient reports the use of cigarette tobacco products. - Family history:: not pertinent. ROS: 06:29 Constitutional: Negative for fever, chills, and weight loss, Eyes: Negative for injury, rt pain, redness, and discharge, ENT: Negative for injury, pain, and discharge, Neck: Negative for injury, pain, and swelling, Cardiovascular: Negative for chest pain, palpitations, and edema, Respiratory: Negative for shortness of breath, cough, wheezing, and pleuritic chest pain, Back: Negative for injury and pain, MS/Extremity: Negative for injury and deformity, Skin: Negative for injury, rash, and discoloration, Neuro: Negative for headache, weakness, numbness, tingling, and seizure, Psych: Negative for depression, anxiety, suicide ideation, homicidal ideation, and hallucinations. 06:29 Abdomen/GI: Positive for abdominal pain, nausea and vomiting. Exam: 06:29 Constitutional: This is a well developed, well nourished patient who is awake, alert, rt and in no acute distress. Head/Face: Normocephalic, atraumatic. Eyes: Pupils equal round and reactive to light, extra-ocular motions intact. Lids and lashes normal. Conjunctiva and sclera are non-icteric and not injected. Cornea within normal limits. Periorbital areas with no swelling, redness, or edema. ENT: Nares patent. No nasal discharge, no septal abnormalities noted. Tympanic membranes are normal and external auditory canals are clear. Oropharynx with no redness, swelling, or masses, exudates, or evidence of obstruction, uvula midline. Mucous membranes moist. Chest/axilla: Normal chest wall appearance and motion. Nontender with no deformity. No lesions are appreciated. Cardiovascular: Regular rate and rhythm with a normal S1 and S2. No gallops, murmurs, or rubs. Normal PMI, no JVD. No pulse deficits. Respiratory: Lungs have equal breath sounds bilaterally, clear to auscultation and percussion. No rales, rhonchi or wheezes noted. No increased work of breathing, no retractions or nasal flaring. Abdomen/GI: Soft, non-tender, with normal bowel sounds. No distension or tympany. No guarding or rebound. No evidence of tenderness throughout. Skin: Warm, dry with normal turgor. Normal color with no rashes, no lesions, and no evidence of cellulitis. MS/ Extremity: Pulses equal, no cyanosis. Neurovascular intact. Full, normal range of motion. Neuro: Awake and alert, GCS 15, oriented to person, place, time, and situation. Cranial nerves II-XII grossly intact. Motor strength 5/5 in all extremities. Sensory grossly intact. Cerebellar exam normal. Normal gait. Psych: Awake, alert, with orientation to person, place and time. Behavior, mood, and affect are within normal limits. Vital Signs: 05:19 BP 175 / 99; Pulse 95; Resp 20 S; Temp 99.2(O); Pulse Ox 96% on R/A; Weight 70.31 kg bb (R); Height 5 ft. 5 in. (165.10 cm) (R); Pain 8/10; 06:11 BP 177 / 102; Pulse 83; Resp 19 S; Pulse Ox 99% on R/A; aa9 05:19 Body Mass Index 25.79 (70.31 kg, 165.10 cm) bb MDM: 05:28 Patient medically screened. rt 06:29 Differential diagnosis: chronic Abdominal pain, gastritis, UTI, pancreatitis. Data rt reviewed: vital signs, nurses notes, old medical records, lab test result(s), EKG, radiologic studies. I considered the following discharge prescriptions or medication management in the emergency department Medications were administered in the Emergency Department. See MAR. Test considered but Not performed: Other Details Abdominal pain with nonperitoneal abdominal examination, CT scan not indicated. Care significantly affected by the following chronic conditions: chronic abdominal pain. ED course: With chronic abdominal pain presents to the ED with a worsening of her chronic abdominal pain. The patient has a benign abdominal examination, vital signs are stable, labs are unremarkable. Doubt serious surgical pathology. We will spare patient repeat radiation dose, believe that the risk of radiation is greater than the risk of missed acute pathology. Patient stable for outpatient care, however he has an appoint with her physician.. 03/19 05:32 Order name: CBC with Diff; Complete Time: 06:12 rt 03/19 05:32 Order name: CMP; Complete Time: 06:12 rt 03/19 05:32 Order name: Lipase; Complete Time: 06:12 rt 03/19 05:32 Order name: UA MICROSCOPIC; Complete Time: 06:12 rt 03/19 06:00 Order name: Urine Dipstick-Ancillary; Complete Time: 06:12 EDMS 03/19 05:32 Order name: Urine Dipstick-Ancillary (obtain specimen); Complete Time: 05:59 rt Administered Medications: 05:53 Drug: Ketorolac 30 mg Route: IVP; Site: right antecubital; aa9 06:08 Follow up: Response: No adverse reaction aa9 05:53 Drug: NS 0.9% 1000 ml Route: IV; Rate: 1 bolus; Site: right antecubital; aa9 06:32 Follow up: Response: No adverse reaction; IV Status: Completed infusion; IV Intake: aa9 500ml 05:53 Drug: Zofran (Ondansetron) 4 mg Route: IVP; Site: right antecubital; aa9 06:08 Follow up: Response: No adverse reaction aa9 05:59 Drug: Bentyl (dicyclomine) 20 mg Route: IM; Site: left gluteus; aa9 06:08 Follow up: Response: No adverse reaction aa9 Disposition Summary: 03/19/22 06:23 Discharge Ordered Location: Home rt Problem: an ongoing problem rt Symptoms: are unchanged rt Condition: Stable rt Diagnosis - Abdominal pain, unspecified rt - Nausea with vomiting, unspecified rt Followup: rt - With: Private Physician - When: 2 - 3 days - Reason: Discharge Instructions: - Discharge Summary Sheet rt - Abdominal Pain, Adult rt - Nausea and Vomiting, Adult rt Forms: - Medication Reconciliation Form rt - Thank You Letter rt - Antibiotic Education rt - Prescription Opioid Use rt Prescriptions: - Zofran 4 mg Oral Tablet - take 1 tablet by ORAL route every 12 hours As needed; 20 tablet; Refills: 0, rt Product Selection Permitted - dicyclomine 10 mg Oral Capsule - take 1 capsule by ORAL route 3 times per day; 21 capsule; Refills: 0, Product rt Selection Permitted Signatures: Dispatcher [employer] Stephanie Woods, CATY RN bb Beulah Francis RN RN aa9 Jey White MD MD rt
[2022-03-19 06:44] VITALS: TEMP 99.2
[2022-03-19 06:54] VITALS: BP 177/102; O2SAT 99
== END 2022-03-19 06:31 | disposition home or self-care (01) ==
LOC: ER 05:04
DX: R10.9 Unspecified abdominal pain (principal); R11.2 Nausea with vomiting, unspecified; I10 Essential (primary) hypertension; Z72.0 Tobacco use
CPT/HCPCS: 96361; 85025; 36415; 83690; 80053; 96375; 96372; 96374; 99284; J0500; J7030; J2405; 81003; 81015

== ENCOUNTER 2022-04-08 16:27 | Emergency (ER) | payer OTHER ==
--- OUTSIDE RECORDS SUMMARY | 2022-04-08 16:56 | XMS REPORT | Continuity of Care Document ---
:1960 Author Organization [facility] t Address [address] [place] [address] Care Team Providers Name Role Phone [facility] Primary Care Physician MATT SIMPSON Attending Clinician Unavailable MATT SIMPSON Attending Clinician Unavailable Doctor Unassigned, [place] Attending Clinician Unavailable WALLY KRISHNAMURTHY Attending Clinician Unavailable Natacha Brewster Attending Clinician Payers Payer Name Policy Type Policy Number Effective Date Expiration Date Sarina castelan [facility] [id number] 2017 00:00:00 PLUS Problems This patient has [...] ers OPHEN INGREDI 07-27 ity of 00:00: [place] [facility] Propensi Inactiv Reductas ty to e 2-28 e adverse 00:00: Inhibito reaction 00 rs to drug Nitrogly Propensi Active 2017-03 cerin ty to 1-08 adverse 00:00: reaction 00 to drug Social History Social Habit Start Date Stop Date Quantity Comments Source Alcohol intake 2016-05-01 2016-05-01 Current [facility] es 00:00:00 00:00:00 non-drinker of Medical nter alcohol (finding) Sex Assigned At [birth year] [facility] 00:00:00 00:00:00 [facility] Smoking Status Start Date Stop Date Source Current every day smoker 2016-05-01 00:00:00 [facility] [place] Medications Ordered Filled Start Stop Current Ordering [...] capsule 00:00: 00 OXcarbazepi 2017-0 Yes 600mg Q.[id number] Take [address] [facility] [address] ne 2-23 [id number] [facility] (TR[facility]) 10:23: 3D mouth 3 Med ical 600 MG 59 (three) Center tablet times daily. PARoxetine 2017-0 Yes 40mg QD Take [address] (PAXIL) 40 2-23 [facility] tablet 10:23: nightly. [facility]i anjelica [facility] Center OXcarbazepi 2017-0 Yes 600mg Q.34532198 Take [address] ne 2-23 [id number] [facility] (TRILEPTAL) 10:23: 3D mouth 3 Med ical 600 MG 59 (three) Center tablet times daily. PARoxetine 2017-0 Yes 40mg QD Take [address] (PAXIL) 40 2-23 [facility] tablet 10:23: nightly. [address] OXcarbazepi 2017-0 Yes 600mg Q.77189074 Take [address] ne 2-23 [id number] [facility] (TRILEPTAL) 10:23: 3D mouth 3 Med ical 600 MG 59 (three) Center tablet times daily. PARoxetine 2017-0 Yes 40mg QD Take [address] (PAXIL) 40 2-23 [facility] tablet 10:23: nightly. [address] OXcarbazepi 2017-0 Yes 600mg Q.[id number] Take [address] ne 2-23 [id number] [facility] (TRILEPTAL) 10:23: 3D mouth 3 Med ical 600 MG 59 (three) Center tablet times daily. PARoxetine 2017-0 Yes 40mg QD Take [address] (PAXIL) 40 2-23 [facility] tablet 10:23: nightly. [address] OXcarbazepi 2017-0 Yes 600mg Q.36863432 Take [address] ne 2-23 [id number] [facility] (TRILEPTAL) 10:23: 3D mouth 3 Med ical 600 MG 59 (three) Center tablet times daily. PARoxetine 2017-0 Yes 40mg QD Take [address] (PAXIL) 40 2-23 [facility] tablet 10:23: nightly. [address] OXcarbazepi 2017-0 Yes 600mg Q.03159016 Take [address] ne 2-23 [id number] [facility] (TRILEPTAL) 10:23: 3D mouth 3 Med ical 600 MG 59 (three) Center tablet times daily. OXcarbazepi 2017-0 Yes 600mg Q.99848593 Take [address] ne 2-23 [id number] [facility] (TRILEPTAL) 10:23: 3D mouth 3 Med ical 600 MG 59 (three) Center tablet times daily. PARoxetine 2017-0 Yes 40mg QD Take [address] (PAXIL) 40 2-23 [facility] tablet 10:23: nightly. [address] PARoxetine 2017-0 Yes 40mg QD Take [address] (PAXIL) 40 2-23 [facility] tablet 10:23: nightly. [address] OXcarbazepi 2017-0 Yes 600mg Q.15348277 Take [address] ne 2-23 [id number] [facility] (TRILEPTAL) 10:23: 3D mouth 3 Med ical 600 MG 59 (three) Center tablet times daily. PARoxetine 2017-0 Yes 40mg QD Take [address] (PAXIL) 40 2-23 [facility] tablet 10:23: nightly. [address] OXcarbazepi 2017-0 Yes 600mg Q.96677182 Take [address] ne 2-23 [id number] [facility] (TRILEPTAL) 10:23: 3D mouth 3 Med ical 600 MG 59 (three) Center tablet times daily. PARoxetine 2017-0 Yes 40mg QD Take [address] (PAXIL) 40 2-23 [facility] tablet 10:23: nightly. [address] OXcarbazepi 2017-0 Yes 600mg Q.61024255 Take [address] ne 2-23 [id number] [facility] (TRILEPTAL) 10:23: 3D mouth 3 Med ical 600 MG 59 (three) Center tablet times daily. PARoxetine 2017-0 Yes 40mg QD Take [address] (PAXIL) 40 2-23 by [facility] tablet 10:23: nightly. [address] OXcarbazepi 2017-0 Yes 600mg Q.11006140 Take [address] ne 2-23 [id number] [facility] (TRILEPTAL) 10:23: 3D mouth 3 Med ical 600 MG 59 (three) Center tablet times daily. PARoxetine 2017-0 Yes 40mg QD Take [address] (PAXIL) 40 2-23 by [facility] tablet 10:23: nightly. [facility] anjelica [facility] Center OXcarbazepi 2017-0 Yes 600mg Q.73722142 Take [address] ne 2-23 [id number] [facility] (TRILEPTAL) 10:23: 3D mouth 3 Med ical 600 MG 59 (three) Center tablet times daily. PARoxetine 2017-0 Yes 40mg QD Take [address] (PAXIL) 40 2-23 by [facility] MG tablet 10:23: nightly. Medi anjelica 59 [place] OXcarbazepi 2017-0 Yes 600mg Q.79517899 Take [address] ne 2-23 [id number] [facility] (TRILEPTAL) 10:23: 3D mouth 3 Med ical 600 MG 59 (three) Center tablet times daily. PARoxetine 2017-0 Yes 40mg QD Take [address] (PAXIL) 40 2-23 by [facility] MG tablet 10:23: nightly. [facility] anjelica 59 [place] OXcarbazepi 2017-0 Yes 600mg Q.24700079 Take [address] ne 2-23 [id number] [facility] (TRILEPTAL) 10:23: 3D mouth 3 Med ical 600 MG 59 (three) Center tablet times daily. PARoxetine 2017-0 Yes 40mg QD Take [address] (PAXIL) 40 2-23 by [facility] MG tablet 10:23: nightly. [facility] anjelica 59 [place] OXcarbazepi 2017-0 Yes 600mg Q.01344602 Take [address] ne 2-23 [id number] [facility] (TRILEPTAL) 10:23: 3D mouth 3 Med ical 600 MG 59 (three) Center tablet times daily. OXcarbazepi 2017-0 Yes 600mg Q.98722914 Take [address] ne 2-23 [id number] [facility] (TRILEPTAL) 10:23: 3D mouth 3 Med ical 600 MG 59 (three) Center tablet times daily. PARoxetine 2017-0 Yes 40mg QD Take [address] (PAXIL) 40 2-23 [facility] tablet 10:23: nightly. [facility]i [facility]jel[facility] Center OXcarbazepi 2017-0 Yes 600mg Q.70585867 Take [address] ne 2-23 [id number] [facility] (TRILEPTAL) 10:23: 3D mouth 3 Med ical 600 MG 59 (three) Center tablet times daily. PARoxetine 2017-0 Yes 40mg QD Take [address] (PAXIL) 40 2-23 by [facility] tablet 10:23: nightly. [address] OXcarbazepi 2017-0 Yes 600mg Q.20400374 Take [address] ne 2-23 [id number] [facility] (TRILEPTAL) 10:23: 3D mouth 3 Med ical 600 MG 59 (three) Center tablet times daily. PARoxetine 2017-0 Yes 40mg QD Take [address] (PAXIL) 40 2-23 by [facility] tablet 10:23: nightly. [address] PARoxetine 2017-0 Yes 40mg QD Take [address] (PAXIL) 40 2-23 by [facility] tablet 10:23: nightly. [address] OXcarbazepi 2017-0 Yes 600mg Q.26130055 Take [address] ne 2-23 [id number] [facility] (TRILEPTAL) 10:23: 3D mouth 3 Med ical 600 MG 59 (three) Center tablet times daily. PARoxetine 2017-0 Yes 40mg QD Take [address] (PAXIL) 40 2-23 by [facility] tablet 10:23: nightly. [address] OXcarbazepi 2017-0 Yes 600mg Q.59023554 Take [address] ne 2-23 [id number] [facility] (TRILEPTAL) 10:23: 3D mouth 3 Med ical 600 MG 59 (three) Center tablet times daily. PARoxetine 2017-0 Yes 40mg QD Take [address] (PAXIL) 40 2-23 by [facility] tablet 10:23: nightly. [address] OXcarbazepi 2017-0 Yes 600mg Q.34089271 Take [address] ne 2-23 [id number] [facility] (TRILEPTAL) 10:23: 3D mouth 3 Med ical 600 MG 59 (three) Center tablet times daily. PARoxetine 2017-0 Yes 40mg QD Take [address] (PAXIL) 40 2-23 by [facility] tablet 10:23: nightly. [address] LORazepam 2017-0 Yes 1mg Take 1 [...] Goal Plan of Care Note [code = 52544-2] Goal Plan of Care Note [code = 74211-3] Goal Plan of Care Note [code = 50453-1] Goal Plan of Care Note [code = 77702-2] Goal Plan of Care Note [code = 39055-9] Goal Plan of Care Note [code = 29187-8] Goal Plan of Care Note [code = 97323-6] Goal Plan of Care Note [code = 68568-1] Goal Plan of Care Note [code = 47345-9] Goal Plan of Care Note [code = 21076-9] Goal Plan of Care Note [code = 85159-9] Goal Plan of Care Note [code = 80207-8] Goal Plan of Care Note [code = 97028-2] Goal Plan of Care Note [code = 57064-8] Goal Plan of Care Note [code = 42109-9] Goal Plan of Care Note [code = 28772-8] Goal Plan of Care Note [code = 64017-3] Goal Plan of Care Note [code = 72073-5] Goal Plan of Care Note [code = 02441-4] Goal Plan of Care Note [code = 66704-0] Goal Plan of Care Note [code = 24831-8] Goal Plan of Care Note [code = 61316-1] Goal Plan of Care Note [code = 77861-0] Goal Plan of Care Note [code = 80334-0] Goal Plan of Care Note [code = 98614-0] Goal Plan of Care Note [code = 25114-7] Goal Plan of Care Note [code = 35612-3] Goal Plan of Care Note [code = 13585-1] Goal Plan of Care Note [code = 31148-3] Goal Plan of Care Note [code = 06521-0] Goal Plan of Care Note [code = 48842-7] Goal Plan of Care Note [code = 51794-6] Goal Plan of Care Note [code = 54989-7] Goal Plan of Care Note [code = 98511-5] Goal Plan of Care Note [code = 92050-2] Goal Plan of Care Note [code = 21495-9] Goal Plan of Care Note [code = 93473-1] Goal Plan of Care Note [code = 60376-4] Goal Plan of Care Note [code = 65222-7] Goal Plan of Care Note [code = 15559-4] Goal Plan of Care Note [code = 97329-3] Goal Plan of Care Note [code = 13676-3] Goal Plan of Care Note [code = 46249-1] Goal Plan of Care Note [code = 94721-1] Goal Plan of Care Note [code = 26350-4] Goal Plan of Care Note [code = 37674-6] Goal Plan of Care Note [code = 43208-2] Goal Plan of Care Note [code = 61226-7] Goal Plan of Care Note [code = 70324-5] Goal Plan of Care Note [code = 08118-5] Goal Plan of Care Note [code = 54659-9] Goal Plan of Care Note [code = 75523-6] Goal Plan of Care Note [code = 37704-1] Goal Plan of Care Note [code = 91773-3] Goal Plan of Care Note [code = 18895-4] Goal Plan of Care Note [code = 26970-3] Goal Plan of Care Note [code = 10166-5] Goal Plan of Care Note [code = 43978-5] Goal Plan of Care Note [code = 19068-7] Goal Plan of Care Note [code = 70944-7] Goal Plan of Care Note [code = 06780-7] Goal Plan of Care Note [code = 04881-7] Goal Plan of Care Note [code = 51465-5] Goal Plan of Care Note [code = 82237-2] Goal Plan of Care Note [code = 90248-8] Goal Plan of Care Note [code = 83395-3] Goal Plan of Care Note [code = 41939-0] Goal Plan of Care Note [code = 56485-3] Goal Plan of Care Note [code = 13540-5] Goal Plan of Care Note [code = 89791-2] Goal Plan of Care Note [code = 55230-1] Goal Plan of Care Note [code = 44524-1] Goal Plan of Care Note [code = 44011-1] Goal Plan of Care Note [code = 17469-4] Goal Plan of Care Note [code = 57289-7] Goal Plan of Care Note [code = 36349-2] Goal Plan of Care Note [code = 35917-5] Goal Plan of Care Note [code = 11384-1] Goal Plan of Care Note [code = 36269-8] Goal Plan of Care Note [code = 39694-4] Goal Plan of Care Note [code = 36271-0] Goal Plan of Care Note [code = 87134-3] Goal Plan of Care Note [code = 64620-4] Goal Plan of Care Note [code = 86047-5] Goal Plan of Care Note [code = 75171-4] Goal Plan of Care Note [code = 45465-3] Goal Plan of Care Note [code = 48968-6] Goal Plan of Care Note [code = 21732-8] Goal Plan of Care Note [code = 24770-1] Goal Plan of Care Note [code = 05290-7] Goal Plan of Care Note [code = 70202-7] Goal Plan of Care Note [code = 09072-0] Goal Plan of Care Note [code = 50404-7] Goal Plan of Care Note [code = 22255-4] Goal Plan of Care Note [code = 67771-1] Goal Plan of Care Note [code = 99345-0] Goal Plan of Care Note [code = 23437-4] Goal Plan of Care Note [code = 88284-9] Goal Plan of Care Note [code = 91846-0] Goal Plan of Care Note [code = 22637-2] Goal Plan of Care Note [code = 05605-6] Goal Plan of Care Note [code = 90262-2] Goal Plan of Care Note [code = 43434-1] Goal Plan of Care Note [code = 14096-3] Goal Plan of Care Note [code = 15462-9] Goal Plan of Care Note [code = 93296-4] Goal Plan of Care Note [code = 83834-8] Goal Plan of Care Note [code = 42160-8] Goal Plan of Care Note [code = 07589-3] Goal Plan of Care Note [code = 68433-9] Goal Plan of Care Note [code = 40363-6] Goal Plan of Care Note [code = 12396-6] Goal Plan of Care Note [code = 84047-5] Goal Plan of Care Note [code = 54520-4] Goal Plan of Care Note [code = 57014-3] Goal Plan of Care Note [code = 20384-4] Goal Plan of Care Note [code = 82303-1] Goal Plan of Care Note [code = 50920-6] Goal Plan of Care Note [code = 92309-3] Goal Plan of Care Note [code = 37327-6] Goal Plan of Care Note [code = 54542-1] Goal Plan of Care Note [code = 22680-4] Goal Plan of Care Note [code = 07969-1] Goal Plan of Care Note [code = 63732-4] Goal Plan of Care Note [code = 93954-5] Goal Plan of Care Note [code = 39526-3] Goal Plan of Care Note [code = 10949-4] Goal Plan of Care Note [code = 35065-9] Goal Plan of Care Note [code = 13828-1] Goal Plan of Care Note [code = 12897-5] Goal Plan of Care Note [code = 28831-6] Goal Plan of Care Note [code = 15255-5] Goal Plan of Care Note [code = 62686-4] Goal Plan of Care Note [code = 50684-9] Goal Plan of Care Note [code = 32804-4] Goal Plan of Care Note [code = 29970-6] Goal Plan of Care Note [code = 34884-6] Goal Plan of Care Note [code = 61453-0] Goal Plan of Care Note [code = 35381-3] Goal Plan of Care Note [code = 35262-0] Goal Plan of Care Note [code = 63926-4] Goal Plan of Care Note [code = 20623-9] Goal Plan of Care Note [code = 83654-5] Goal Plan of Care Note [code = 50483-2] Goal Plan of Care Note [code = 82967-2] Goal Plan of Care Note [code = 14056-9] Goal Plan of Care Note [code = 24164-4] Goal Plan of Care Note [code = 87505-9] Goal Plan of Care Note [code = 19137-9] Goal Plan of Care Note [code = 27655-0] Goal Plan of Care Note [code = 82078-3] Goal Plan of Care Note [code = 41696-7] Goal Plan of Care Note [code = 10690-2] Goal Plan of Care Note [code = 16327-4] Goal Plan of Care Note [code = 62624-4] Goal Plan of Care Note [code = 91362-5] Goal Plan of Care Note [code = 81888-8] Goal Plan of Care Note [code = 78097-5] Goal Plan of Care Note [code = 09458-6] Goal Plan of Care Note [code = 22115-4] Goal Plan of Care Note [code = 03099-6] Goal Plan of Care Note [code = 07855-3] Goal Plan of Care Note [code = 00932-0] Goal Plan of Care Note [code = 26721-2] Goal Plan of Care Note [code = 14433-3] Goal Plan of Care Note [code = 56776-6] Goal Plan of Care Note [code = 49379-5] Goal Plan of Care Note [code = 86650-0] Goal Plan of Care Note [code = 63803-0] Goal Plan of Care Note [code = 23272-4] Goal Plan of Care Note [code = 14489-5] Goal Plan of Care Note [code = 15440-1] Goal Plan of Care Note [code = 46751-2] Goal Plan of Care Note [code = 76727-3] Goal Plan of Care Note [code = 36198-7] Goal Plan of Care Note [code = 75028-3] Goal Plan of Care Note [code = 10057-3] Goal Plan of Care Note [code = 49973-9] Goal Plan of Care Note [code = 79945-7] Goal Plan of Care Note [code = 99862-6] Goal Plan of Care Note [code = 35940-2] Goal Plan of Care Note [code = 72695-7] Goal Plan of Care Note [code = 79153-5] Goal Plan of Care Note [code = 89894-1] Goal Plan of Care Note [code = 22393-0] Goal Plan of Care Note [code = 80822-3] Goal Plan of Care Note [code = 56763-2] Goal Plan of Care Note [code = 84254-6] Goal Plan of Care Note [code = 79418-8] Goal Plan of Care Note [code = 44573-6] Goal Plan of Care Note [code = 86733-2] Goal Plan of Care Note [code = 54351-0] Goal Plan of Care Note [code = 22844-1] Goal Plan of Care Note [code = 64624-0] Goal Plan of Care Note [code = 47151-1] Goal Plan of Care Note [code = 90243-1] Goal Plan of Care Note [code = 61890-7] Goal Plan of Care Note [code = 17239-4] Goal Plan of Care Note [code = 48280-4] Goal Plan of Care Note [code = 07236-6] Goal Plan of Care Note [code = 20185-2] Goal Plan of Care Note [code = 78069-7] Goal Plan of Care Note [code = 54569-1] Goal Plan of Care Note [code = 92551-7] Goal Plan of Care Note [code = 43534-5] Goal Plan of Care Note [code = 42182-8] Goal Plan of Care Note [code = 85824-2] Goal Plan of Care Note [code = 46406-2] Encounters Start End Encounter Admission Attending Care Care Encounter Source Date/Time Date/Time Type Type Clinicians Facility Department ID 2021-06-01 Outpatient [facility] [id number] [place] 01:36:29 [id number] [facility] 2022-02-11 2022-02-11 Outpatient SFA SFA [id number] 022 Cristian 09:04:48 09:04:48 1206 F Jerman 2022-02-10 2022-02-10 Outpatient SFA SFA [id number] 022 Cristian 09:29:34 09:29:34 1205 F Jerman 2022-02-10 2022-02-10 Outpatient [id number]- [id number] 2s09p0-0 00:00:00 00:00:00 Visit 4089-4cab 089-4cab-9 -8mu8-w0a bf5-u9j217 566hjtf28 bafa93 2022-01-10 2022-01-10 Outpatient SFA SFA 87043-4 022 Cristian 09:16:14 09:16:14 1104 F Jerman 2022-01-10 2022-01-10 Outpatient z8huesb7- [id number] accaa6-a 00:00:00 00:00:00 Visit aca9-4c83 ca9-4c83-a -b7gs-kr3 7eb-bc13f3 5n9a775j2 f032f9 2021-12-19 2021-12-19 Outpatient SFA SFA [id number] 022 Cristian 16:11:31 16:11:31 1013 F Jerman 2021-12-19 2021-12-19 Outpatient [id number] [id number] 00:00:00 00:00:00 Visit o979-931i 770-441f-a -adae-62b amelia-62bace jagwp19jf fd81af 2021-09-17 2021-09-17 Outpatient tgp6pjpw- [id number] aa e8kxba-8 00:00:00 00:00:00 Visit 935a-4f50 35a-4f50-b -r73e-d6j 77d-c2ba85 [id number] 1264a6 2020-08-03 2020-08-03 Outpatient MATT VÁSQUEZ [facility] [id number] [facility] 10:00:00 10:00:00 MATT SIMPSON [facility] 2020-07-25 2020-07-25 Orders Doctor ABE [id number] 00:00:00 00:00:00 Only Unassigned, B[place] 350.1.13.10 [facility] 4.2.7.2.686 [id number] 2019-09-26 2019-09-26 Outpatient R RAGHU, [facility] [id number] [facility] 16:00:00 16:00:00 WALLY [facility] 2018-10-21 2018-10-21 Telephone Gramm, [facility] [id number] 00:00:00 00:00:00 Natacha Myles [place] 350.1.13.10 [place] 4.2.7.2.686 [place] [id number] [facility] [address] Building Results Test Description Test Time Test Comments Results Result Comments Source TSH, THIRD GENERATION 2021-06-27 05:15:49 Test Item Value Reference Range Interpretation Comme nts TSH, THIRD GENERATION (test code = 2821) 2.080 UIU/ML 0.400-4.100 HEMOGLOBIN [id number] 03:46:00 Test Item Value Reference Range Interpretation Comments HEMOGLOBIN A1c (test 6.6 % 4.2-5.6 H [employer]ETES code = 51747) ASSOCIATION IDELINES FOR HGB A1C: PREDIABETES/INC REASED [...] PER FORMED [facility], I ID. [address] [phone] LABORATORY DIRE CTOR: DIANA RUSS M.D. CLIA NUMBER [id number] [place]. [id number] LIPID [id number] 02:59:52 Test Item Value Reference Range Interpretation [...] MOREINFORMATION , SEE CLIENT ANNOUNCE MENT AT [email or web address] RISK RATIO LDL/HDL 4.02 RATIO <3.22 H (test code = 2238) [id number] 00:00:00 Test Item Value Reference Range Interpretation Comments TSH, THIRD GENERATION (test code 2.080 UIU/ML = 2821) [id number] 00:00:00 Test Item Value Reference Range Interpretation Comments TSH, THIRD GENERATION (test code 2.080 UIU/ML = 2821) [id number] 00:00:00 Test Item Value Reference Range Interpretation Comments TSH, THIRD GENERATION (test code 2.080 UIU/ML = 2821) LIPID [id number] 00:00:00 Test Item Value Reference Range Interpretation Comments CHOLESTEROL (test code = 2210) 292 MG/DL TRIGLYCERIDES (test code = 2232) 184 MG/DL HDL CHOLESTEROL (test code = 2220) 51 MG/DL CALC LDL CHOL (test code = 2237) 205 MG/DL RISK RATIO LDL/HDL (test code = 4.02 RATIO 2238) LIPID [id number] 00:00:00 Test Item Value Reference Range Interpretation Comments CHOLESTEROL (test code = 2210) 292 MG/DL TRIGLYCERIDES (test code = 2232) 184 MG/DL HDL CHOLESTEROL (test code = 2220) 51 MG/DL CALC LDL CHOL (test code = 2237) 205 MG/DL RISK RATIO LDL/HDL (test code = 4.02 RATIO 2238) HEMOGLOBIN [id number] 00:00:00 Test Item Value Reference Range Interpretation Comments HEMOGLOBIN A1c (test code = 01446) 6.6 % HEMOGLOBIN [id number] 00:00:00 Test Item Value Reference Range Interpretation Comments HEMOGLOBIN A1c (test code = 17749) 6.6 % HEMOGLOBIN [id number] 00:00:00 Test Item Value Reference Range Interpretation Comments HEMOGLOBIN A1c (test code = 30506) 6.6 % [id number] 00:00:00 Test Item Value Reference Range Interpretation Comments TSH, THIRD GENERATION (test code 2.080 UIU/ML = 2821) [id number] 00:00:00 Test Item Value Reference Range Interpretation Comments TSH, THIRD GENERATION (test code 2.080 UIU/ML = 2821) [id number] 00:00:00 Test Item Value Reference Range Interpretation Comments TSH, THIRD GENERATION (test code 2.080 UIU/ML = 2821) LIPID [id number] 00:00:00 Test Item Value Reference Range Interpretation Comments CHOLESTEROL (test code = 2210) 292 MG/DL TRIGLYCERIDES (test code = 2232) 184 MG/DL HDL CHOLESTEROL (test code = 2220) 51 MG/DL CALC LDL CHOL (test code = 2237) 205 MG/DL RISK RATIO LDL/HDL (test code = 4.02 RATIO 2238) LIPID [id number] 00:00:00 Test Item Value Reference Range Interpretation Comments CHOLESTEROL (test code = 2210) 292 MG/DL TRIGLYCERIDES (test code = 2232) 184 MG/DL HDL CHOLESTEROL (test code = 2220) 51 MG/DL CALC LDL CHOL (test code = 2237) 205 MG/DL RISK RATIO LDL/HDL (test code = 4.02 RATIO 2238) HEMOGLOBIN [id number] 00:00:00 Test Item Value Reference Range Interpretation Comments HEMOGLOBIN A1c (test code = 64235) 6.6 % HEMOGLOBIN [id number] 00:00:00 Test Item Value Reference Range Interpretation Comments HEMOGLOBIN A1c (test code = 97925) 6.6 % HEMOGLOBIN [id number] 00:00:00 Test Item Value Reference Range Interpretation Comments HEMOGLOBIN A1c (test code = 90915) 6.6 % [id number] 00:00:00 Test Item Value Reference Range Interpretation Comments TSH, THIRD GENERATION (test code 2.080 UIU/ML = 2821) [id number] 00:00:00 Test Item Value Reference Range Interpretation Comments TSH, THIRD GENERATION (test code 2.080 UIU/ML = 2821) LIPID [id number] 00:00:00 Test Item Value Reference Range Interpretation Comments CHOLESTEROL (test code = 2210) 292 MG/DL TRIGLYCERIDES (test code = 2232) 184 MG/DL HDL CHOLESTEROL (test code = 2220) 51 MG/DL CALC LDL CHOL (test code = 2237) 205 MG/DL RISK RATIO LDL/HDL (test code = 4.02 RATIO 2238) HEMOGLOBIN [id number] 00:00:00 Test Item Value Reference Range Interpretation Comments HEMOGLOBIN A1c (test code = 05861) 6.6 % HEMOGLOBIN [id number] 00:00:00 Test Item Value Reference Range Interpretation Comments HEMOGLOBIN A1c (test code = 78293) 6.6 % [id number] 00:00:00 Test Item Value Reference Range Interpretation Comments TSH, THIRD GENERATION (test code 2.080 UIU/ML = 2821) [id number] 00:00:00 Test Item Value Reference Range Interpretation Comments TSH, THIRD GENERATION (test code 2.080 UIU/ML = 2821) [id number] 00:00:00 Test Item Value Reference Range Interpretation Comments TSH, THIRD GENERATION (test code 2.080 UIU/ML = 2821) LIPID [id number] 00:00:00 Test Item Value Reference Range Interpretation Comments CHOLESTEROL (test code = 2210) 292 MG/DL TRIGLYCERIDES (test code = 2232) 184 MG/DL HDL CHOLESTEROL (test code = 2220) 51 MG/DL CALC LDL CHOL (test code = 2237) 205 MG/DL RISK RATIO LDL/HDL (test code = 4.02 RATIO 2238) LIPID [id number] 00:00:00 Test Item Value Reference Range Interpretation Comments CHOLESTEROL (test code = 2210) 292 MG/DL TRIGLYCERIDES (test code = 2232) 184 MG/DL HDL CHOLESTEROL (test code = 2220) 51 MG/DL CALC LDL CHOL (test code = 2237) 205 MG/DL RISK RATIO LDL/HDL (test code = 4.02 RATIO 2238) HEMOGLOBIN [id number] 00:00:00 Test Item Value Reference Range Interpretation Comments HEMOGLOBIN A1c (test code = 58255) 6.6 % HEMOGLOBIN [id number] 00:00:00 Test Item Value Reference Range Interpretation Comments HEMOGLOBIN A1c (test code = 03957) 6.6 % HEMOGLOBIN [id number] 00:00:00 Test Item Value Reference Range Interpretation Comments HEMOGLOBIN A1c (test code = 05489) 6.6 % HEMOGLOBIN [id number] 00:00:00 Test Item Value Reference Range Interpretation Comments HEMOGLOBIN A1c (test code = 61773) 6.8 % HEMOGLOBIN [id number] 00:00:00 Test Item Value Reference Range Interpretation Comments HEMOGLOBIN A1c (test code = 00127) 6.8 % HEMOGLOBIN [id number] 00:00:00 Test Item Value Reference Range Interpretation Comments HEMOGLOBIN A1c (test code = 40166) 6.8 % LIPID [id number] 00:00:00 Test Item Value Reference Range Interpretation Comments CHOLESTEROL (test code = 2210) 303 MG/DL TRIGLYCERIDES (test code = 2232) 191 MG/DL HDL CHOLESTEROL (test code = 2220) 61 MG/DL CALC LDL CHOL (test code = 2237) 205 MG/DL RISK RATIO LDL/HDL (test code = 3.36 RATIO 2238) LIPID [id number] 00:00:00 Test Item Value Reference Range Interpretation Comments CHOLESTEROL (test code = 2210) 303 MG/DL TRIGLYCERIDES (test code = 2232) 191 MG/DL HDL CHOLESTEROL (test code = 2220) 61 MG/DL CALC LDL CHOL (test code = 2237) 205 MG/DL RISK RATIO LDL/HDL (test code = 3.36 RATIO 2238) [id number] 00:00:00 Test Item Value Reference Range Interpretation Comments TSH, THIRD GENERATION (test code 0.769 UIU/ML = 2821) [id number] 00:00:00 Test Item Value Reference Range Interpretation Comments TSH, THIRD GENERATION (test code 0.769 UIU/ML = 2821) [id number] 00:00:00 Test Item Value Reference Range Interpretation Comments TSH, THIRD GENERATION (test code 0.769 UIU/ML = 2821) COMPREHENSIVE METABOLIC [id number] 00:00:00 Test Item Value Reference Range Interpretation Comments GLUCOSE (test code = 2217) 131 MG/DL BUN (test code = 2208) 13 MG/DL CREATININE (test code = 2214) 0.65 MG/DL eGFR AMER. (test code 113 ML/MIN/1.73 = 49610) eGFR NON- AMER. (test 97 ML/MIN/1.73 code = 65112) CALC BUN/CREAT (test code = 20 RATIO [...] code = 2219) 23 U/L COMPREHENSIVE METABOLIC [id number] 00:00:00 Test Item Value Reference Range Interpretation Comments GLUCOSE (test code = 2217) 131 MG/DL BUN (test code = 2208) 13 MG/DL CREATININE (test code = 2214) 0.65 MG/DL eGFR AMER. (test code 113 ML/MIN/1.73 = 59586) eGFR NON- AMER. (test 97 ML/MIN/1.73 code = 82448) CALC BUN/CREAT (test code = 20 RATIO [...] (test code = 2219) 23 U/L HEMOGLOBIN [id number] 00:00:00 Test Item Value Reference Range Interpretation Comments HEMOGLOBIN A1c (test code = 83456) 6.8 % HEMOGLOBIN [id number] 00:00:00 Test Item Value Reference Range Interpretation Comments HEMOGLOBIN A1c (test code = 37581) 6.8 % HEMOGLOBIN [id number] 00:00:00 Test Item Value Reference Range Interpretation Comments HEMOGLOBIN A1c (test code = 35907) 6.8 % LIPID [id number] 00:00:00 Test Item Value Reference Range Interpretation Comments CHOLESTEROL (test code = 2210) 303 MG/DL TRIGLYCERIDES (test code = 2232) 191 MG/DL HDL CHOLESTEROL (test code = 2220) 61 MG/DL CALC LDL CHOL (test code = 2237) 205 MG/DL RISK RATIO LDL/HDL (test code = 3.36 RATIO 2238) LIPID [id number] 00:00:00 Test Item Value Reference Range Interpretation Comments CHOLESTEROL (test code = 2210) 303 MG/DL TRIGLYCERIDES (test code = 2232) 191 MG/DL HDL CHOLESTEROL (test code = 2220) 61 MG/DL CALC LDL CHOL (test code = 2237) 205 MG/DL RISK RATIO LDL/HDL (test code = 3.36 RATIO 2238) [id number] 00:00:00 Test Item Value Reference Range Interpretation Comments TSH, THIRD GENERATION (test code 0.769 UIU/ML = 2821) [id number] 00:00:00 Test Item Value Reference Range Interpretation Comments TSH, THIRD GENERATION (test code 0.769 UIU/ML = 2821) [id number] 00:00:00 Test Item Value Reference Range Interpretation Comments TSH, THIRD GENERATION (test code 0.769 UIU/ML = 2821) COMPREHENSIVE METABOLIC [id number] 00:00:00 Test Item Value Reference Range Interpretation Comments GLUCOSE (test code = 2217) 131 MG/DL BUN (test code = 2208) 13 MG/DL CREATININE (test code = 2214) 0.65 MG/DL eGFR AMER. (test code 113 ML/MIN/1.73 = 59902) eGFR NON- AMER. (test 97 ML/MIN/1.73 code = 78012) CALC BUN/CREAT (test code = 20 RATIO [...] code = 2219) 23 U/L COMPREHENSIVE METABOLIC [id number] 00:00:00 Test Item Value Reference Range Interpretation Comments GLUCOSE (test code = 2217) 131 MG/DL BUN (test code = 2208) 13 MG/DL CREATININE (test code = 2214) 0.65 MG/DL eGFR AMER. (test code 113 ML/MIN/1.73 = 80281) eGFR NON- AMER. (test 97 ML/MIN/1.73 code = 58713) CALC BUN/CREAT (test code = 20 RATIO [...] (test code = 2219) 23 U/L HEMOGLOBIN [id number] 00:00:00 Test Item Value Reference Range Interpretation Comments HEMOGLOBIN A1c (test code = 49544) 6.8 % HEMOGLOBIN [id number] 00:00:00 Test Item Value Reference Range Interpretation Comments HEMOGLOBIN A1c (test code = 87654) 6.8 % LIPID [id number] 00:00:00 Test Item Value Reference Range Interpretation Comments CHOLESTEROL (test code = 2210) 303 MG/DL TRIGLYCERIDES (test code = 2232) 191 MG/DL HDL CHOLESTEROL (test code = 2220) 61 MG/DL CALC LDL CHOL (test code = 2237) 205 MG/DL RISK RATIO LDL/HDL (test code = 3.36 RATIO 2238) [id number] 00:00:00 Test Item Value Reference Range Interpretation Comments TSH, THIRD GENERATION (test code 0.769 UIU/ML = 2821) [id number] 00:00:00 Test Item Value Reference Range Interpretation Comments TSH, THIRD GENERATION (test code 0.769 UIU/ML = 2821) COMPREHENSIVE METABOLIC [id number] 00:00:00 Test Item Value Reference Range Interpretation Comments GLUCOSE (test code = 2217) 131 MG/DL BUN (test code = 2208) 13 MG/DL CREATININE (test code = 2214) 0.65 MG/DL eGFR AMER. (test code 113 ML/MIN/1.73 = 67438) eGFR NON- AMER. (test 97 ML/MIN/1.73 code = 05288) CALC BUN/CREAT (test code = 20 RATIO [...] (test code = 2219) 23 U/L HEMOGLOBIN [id number] 00:00:00 Test Item Value Reference Range Interpretation Comments HEMOGLOBIN A1c (test code = 27718) 6.8 % HEMOGLOBIN [id number] 00:00:00 Test Item Value Reference Range Interpretation Comments HEMOGLOBIN A1c (test code = 23091) 6.8 % HEMOGLOBIN [id number] 00:00:00 Test Item Value Reference Range Interpretation Comments HEMOGLOBIN A1c (test code = 97190) 6.8 % LIPID [id number] 00:00:00 Test Item Value Reference Range Interpretation Comments CHOLESTEROL (test code = 2210) 303 MG/DL TRIGLYCERIDES (test code = 2232) 191 MG/DL HDL CHOLESTEROL (test code = 2220) 61 MG/DL CALC LDL CHOL (test code = 2237) 205 MG/DL RISK RATIO LDL/HDL (test code = 3.36 RATIO 2238) LIPID [id number] 00:00:00 Test Item Value Reference Range Interpretation Comments CHOLESTEROL (test code = 2210) 303 MG/DL TRIGLYCERIDES (test code = 2232) 191 MG/DL HDL CHOLESTEROL (test code = 2220) 61 MG/DL CALC LDL CHOL (test code = 2237) 205 MG/DL RISK RATIO LDL/HDL (test code = 3.36 RATIO 2238) [id number] 00:00:00 Test Item Value Reference Range Interpretation Comments TSH, THIRD GENERATION (test code 0.769 UIU/ML = 2821) [id number] 00:00:00 Test Item Value Reference Range Interpretation Comments TSH, THIRD GENERATION (test code 0.769 UIU/ML = 2821) [id number] 00:00:00 Test Item Value Reference Range Interpretation Comments TSH, THIRD GENERATION (test code 0.769 UIU/ML = 2821) COMPREHENSIVE METABOLIC [id number] 00:00:00 Test Item Value Reference Range Interpretation Comments GLUCOSE (test code = 2217) 131 MG/DL BUN (test code = 2208) 13 MG/DL CREATININE (test code = 2214) 0.65 MG/DL eGFR AMER. (test code 113 ML/MIN/1.73 = 09736) eGFR NON- AMER. (test 97 ML/MIN/1.73 code = 66718) CALC BUN/CREAT (test code = 20 RATIO [...] code = 2219) 23 U/L COMPREHENSIVE METABOLIC [id number] 00:00:00 Test Item Value Reference Range Interpretation Comments GLUCOSE (test code = 2217) 131 MG/DL BUN (test code = 2208) 13 MG/DL CREATININE (test code = 2214) 0.65 MG/DL eGFR AMER. (test code 113 ML/MIN/1.73 = 78059) eGFR NON- AMER. (test 97 ML/MIN/1.73 code = 54753) CALC BUN/CREAT (test code = 20 RATIO [...] (test code = 2219) 23 U/L HEMOGLOBIN [id number] 00:00:00 Test Item Value Reference Range Interpretation Comments HEMOGLOBIN A1c (test code = 24101) 6.6 % HEMOGLOBIN [id number] 00:00:00 Test Item Value Reference Range Interpretation Comments HEMOGLOBIN A1c (test code = 03487) 6.6 % HEMOGLOBIN [id number] 00:00:00 Test Item Value Reference Range Interpretation Comments HEMOGLOBIN A1c (test code = 34396) 6.6 % LIPID [id number] 00:00:00 Test Item Value Reference Range Interpretation Comments CHOLESTEROL (test code = 2210) 261 MG/DL TRIGLYCERIDES (test code = 2232) 159 MG/DL HDL CHOLESTEROL (test code = 2220) 82 MG/DL CALC LDL CHOL (test code = 2237) 150 MG/DL RISK RATIO LDL/HDL (test code = 1.83 RATIO 2238) LIPID [id number] 00:00:00 Test Item Value Reference Range Interpretation Comments CHOLESTEROL (test code = 2210) 261 MG/DL TRIGLYCERIDES (test code = 2232) 159 MG/DL HDL CHOLESTEROL (test code = 2220) 82 MG/DL CALC LDL CHOL (test code = 2237) 150 MG/DL RISK RATIO LDL/HDL (test code = 1.83 RATIO 2238) COMPREHENSIVE METABOLIC [id number] 00:00:00 Test Item Value Reference Range Interpretation Comments GLUCOSE (test code = 2217) 144 MG/DL BUN (test code = 2208) 15 MG/DL CREATININE (test code = 2214) 0.85 MG/DL eGFR AMER. (test code 87 ML/MIN/1.73 = 28653) eGFR NON- AMER. (test 75 ML/MIN/1.73 code = 03012) CALC BUN/CREAT (test code = 18 RATIO [...] code = 2219) 50 U/L COMPREHENSIVE METABOLIC [id number] 00:00:00 Test Item Value Reference Range Interpretation Comments GLUCOSE (test code = 2217) 144 MG/DL BUN (test code = 2208) 15 MG/DL CREATININE (test code = 2214) 0.85 MG/DL eGFR AMER. (test code 87 ML/MIN/1.73 = 25766) eGFR NON- AMER. (test 75 ML/MIN/1.73 code = 05123) CALC BUN/CREAT (test code = 18 RATIO [...] THYROX. BIND. CAPAC. (test code 1.1 = 59570) T4 (THYROXINE) (test code = 4.3 UG/DL 281) CORRECTED T4 (FTI) (test code = 3.9 UG/DL 2820) TSH, THIRD GENERATION (test 18.900 UIU/ML code = 2821) THYROID II PROFILE (T3U, T4, T7, TSH)2020-05-23 00:00:00 Test Item Value Reference Range Interpretation Comments T-UPTAKE (test code = 2817) 30.2 % THYROX. BIND. CAPAC. (test code 1.1 = 55174) T4 (THYROXINE) (test code = 4.3 UG/DL 2819) CORRECTED T4 (FTI) (test code = 3.9 UG/DL 2820) TSH, THIRD GENERATION (test 18.900 UIU/ML code = 2821) HEMOGLOBIN [id number] 00:00:00 Test Item Value Reference Range Interpretation Comments HEMOGLOBIN A1c (test code = 35716) 6.6 % HEMOGLOBIN [id number] 00:00:00 Test Item Value Reference Range Interpretation Comments HEMOGLOBIN A1c (test code = 61913) 6.6 % HEMOGLOBIN [id number] 00:00:00 Test Item Value Reference Range Interpretation Comments HEMOGLOBIN A1c (test code = 22628) 6.6 % LIPID [id number] 00:00:00 Test Item Value Reference Range Interpretation Comments CHOLESTEROL (test code = 2210) 261 MG/DL TRIGLYCERIDES (test code = 2232) 159 MG/DL HDL CHOLESTEROL (test code = 2220) 82 MG/DL CALC LDL CHOL (test code = 2237) 150 MG/DL RISK RATIO LDL/HDL (test code = 1.83 RATIO 2238) LIPID [id number] 00:00:00 Test Item Value Reference Range Interpretation Comments CHOLESTEROL (test code = 2210) 261 MG/DL TRIGLYCERIDES (test code = 2232) 159 MG/DL HDL CHOLESTEROL (test code = 2220) 82 MG/DL CALC LDL CHOL (test code = 2237) 150 MG/DL RISK RATIO LDL/HDL (test code = 1.83 RATIO 2238) COMPREHENSIVE METABOLIC [id number] 00:00:00 Test Item Value Reference Range Interpretation Comments GLUCOSE (test code = 2217) 144 MG/DL BUN (test code = 2208) 15 MG/DL CREATININE (test code = 2214) 0.85 MG/DL eGFR AMER. (test code 87 ML/MIN/1.73 = 90030) eGFR NON- AMER. (test 75 ML/MIN/1.73 code = 99065) CALC BUN/CREAT (test code = 18 RATIO [...] code = 2219) 50 U/L COMPREHENSIVE METABOLIC [id number] 00:00:00 Test Item Value Reference Range Interpretation Comments GLUCOSE (test code = 2217) 144 MG/DL BUN (test code = 2208) 15 MG/DL CREATININE (test code = 2214) 0.85 MG/DL eGFR AMER. (test code 87 ML/MIN/1.73 = 81323) eGFR NON- AMER. (test 75 ML/MIN/1.73 code = 01664) CALC BUN/CREAT (test code = 18 RATIO [...] THYROX. BIND. CAPAC. (test code 1.1 = 84300) T4 (THYROXINE) (test code = 4.3 UG/DL 2819) CORRECTED T4 (FTI) (test code = 3.9 UG/DL 2820) TSH, THIRD GENERATION (test 18.900 UIU/ML code = 2821) THYROID II PROFILE (T3U, T4, T7, TSH)2020-05-23 00:00:00 Test Item Value Reference Range Interpretation Comments T-UPTAKE (test code = 2817) 30.2 % THYROX. BIND. CAPAC. (test code 1.1 = 48343) T4 (THYROXINE) (test code = 4.3 UG/DL 2819) CORRECTED T4 (FTI) (test code = 3.9 UG/DL 2820) TSH, THIRD GENERATION (test 18.900 UIU/ML code = 2821) HEMOGLOBIN [id number] 00:00:00 Test Item Value Reference Range Interpretation Comments HEMOGLOBIN A1c (test code = 91492) 6.6 % HEMOGLOBIN [id number] 00:00:00 Test Item Value Reference Range Interpretation Comments HEMOGLOBIN A1c (test code = 32162) 6.6 % LIPID [id number] 00:00:00 Test Item Value Reference Range Interpretation Comments CHOLESTEROL (test code = 2210) 261 MG/DL TRIGLYCERIDES (test code = 2232) 159 MG/DL HDL CHOLESTEROL (test code = 2220) 82 MG/DL CALC LDL CHOL (test code = 2237) 150 MG/DL RISK RATIO LDL/HDL (test code = 1.83 RATIO 2238) COMPREHENSIVE METABOLIC [id number] 00:00:00 Test Item Value Reference Range Interpretation Comments GLUCOSE (test code = 2217) 144 MG/DL BUN (test code = 2208) 15 MG/DL CREATININE (test code = 2214) 0.85 MG/DL eGFR AMER. (test code 87 ML/MIN/1.73 = 64339) eGFR NON- AMER. (test 75 ML/MIN/1.73 code = 97598) CALC BUN/CREAT (test code = 18 RATIO [...] THYROX. BIND. CAPAC. (test code 1.1 = 22569) T4 (THYROXINE) (test code = 4.3 UG/DL 2819) CORRECTED T4 (FTI) (test code = 3.9 UG/DL 2820) TSH, THIRD GENERATION (test 18.900 UIU/ML code = 2821) HEMOGLOBIN [id number] 00:00:00 Test Item Value Reference Range Interpretation Comments HEMOGLOBIN A1c (test code = 62471) 6.6 % HEMOGLOBIN [id number] 00:00:00 Test Item Value Reference Range Interpretation Comments HEMOGLOBIN A1c (test code = 28627) 6.6 % HEMOGLOBIN [id number] 00:00:00 Test Item Value Reference Range Interpretation Comments HEMOGLOBIN A1c (test code = 41980) 6.6 % LIPID [id number] 00:00:00 Test Item Value Reference Range Interpretation Comments CHOLESTEROL (test code = 2210) 261 MG/DL TRIGLYCERIDES (test code = 2232) 159 MG/DL HDL CHOLESTEROL (test code = 2220) 82 MG/DL CALC LDL CHOL (test code = 2237) 150 MG/DL RISK RATIO LDL/HDL (test code = 1.83 RATIO 2238) LIPID [id number] 00:00:00 Test Item Value Reference Range Interpretation Comments CHOLESTEROL (test code = 2210) 261 MG/DL TRIGLYCERIDES (test code = 2232) 159 MG/DL HDL CHOLESTEROL (test code = 2220) 82 MG/DL CALC LDL CHOL (test code = 2237) 150 MG/DL RISK RATIO LDL/HDL (test code = 1.83 RATIO 2238) COMPREHENSIVE METABOLIC [id number] 00:00:00 Test Item Value Reference Range Interpretation Comments GLUCOSE (test code = 2217) 144 MG/DL BUN (test code = 2208) 15 MG/DL CREATININE (test code = 2214) 0.85 MG/DL eGFR AMER. (test code 87 ML/MIN/1.73 = 93842) eGFR NON- AMER. (test 75 ML/MIN/1.73 code = 74016) CALC BUN/CREAT (test code = 18 RATIO [...] code = 2219) 50 U/L COMPREHENSIVE METABOLIC [id number] 00:00:00 Test Item Value Reference Range Interpretation Comments GLUCOSE (test code = 2217) 144 MG/DL BUN (test code = 2208) 15 MG/DL CREATININE (test code = 2214) 0.85 MG/DL eGFR AMER. (test code 87 ML/MIN/1.73 = 01214) eGFR NON- AMER. (test 75 ML/MIN/1.73 code = 19623) CALC BUN/CREAT (test code = 18 RATIO [...] THYROX. BIND. CAPAC. (test code 1.1 = 09911) T4 (THYROXINE) (test code = 4.3 UG/DL 2819) CORRECTED T4 (FTI) (test code = 3.9 UG/DL 2820) TSH, THIRD GENERATION (test 18.900 UIU/ML code = 2821) THYROID II PROFILE (T3U, T4, T7, TSH)2020-05-23 00:00:00 Test Item Value Reference Range Interpretation Comments T-UPTAKE (test code = 2816) 30.2 % THYROX. BIND. CAPAC. (test code 1.1 = 65741) T4 (THYROXINE) (test code = 4.3 UG/DL 2819) CORRECTED T4 (FTI) (test code = 3.9 UG/DL 2820) TSH, THIRD GENERATION (test 18.900 UIU/ML code = 2821) HEMOGLOBIN [id number] 00:00:00 Test Item Value Reference Range Interpretation Comments HEMOGLOBIN A1c (test code = 61302) 6.7 % HEMOGLOBIN [id number] 00:00:00 Test Item Value Reference Range Interpretation Comments HEMOGLOBIN A1c (test code = 86770) 6.7 % HEMOGLOBIN [id number] 00:00:00 Test Item Value Reference Range Interpretation Comments HEMOGLOBIN A1c (test code = 57828) 6.7 % LIPID [id number] 00:00:00 Test Item Value Reference Range Interpretation Comments CHOLESTEROL (test code = 2210) 267 MG/DL TRIGLYCERIDES (test code = 2232) 137 MG/DL HDL CHOLESTEROL (test code = 2220) 48 MG/DL CALC LDL CHOL (test code = 2237) 192 MG/DL RISK RATIO LDL/HDL (test code = 4.00 RATIO 2238) LIPID [id number] 00:00:00 Test Item Value Reference Range Interpretation Comments CHOLESTEROL (test code = 2210) 267 MG/DL TRIGLYCERIDES (test code = 2232) 137 MG/DL HDL CHOLESTEROL (test code = 2220) 48 MG/DL CALC LDL CHOL (test code = 2237) 192 MG/DL RISK RATIO LDL/HDL (test code = 4.00 RATIO 2238) COMPREHENSIVE METABOLIC [id number] 00:00:00 Test Item Value Reference Range Interpretation Comments GLUCOSE (test code = 2217) 155 MG/DL BUN (test code = 2208) 14 MG/DL CREATININE (test code = 2214) 0.52 MG/DL eGFR AMER. (test code 122 ML/MIN/1.73 = 86642) eGFR NON- AMER. (test 105 ML/MIN/1.73 code = 16431) CALC BUN/CREAT (test code = 27 RATIO [...] code = 2219) 27 U/L COMPREHENSIVE METABOLIC [id number] 00:00:00 Test Item Value Reference Range Interpretation Comments GLUCOSE (test code = 2217) 155 MG/DL BUN (test code = 2208) 14 MG/DL CREATININE (test code = 2214) 0.52 MG/DL eGFR AMER. (test code 122 ML/MIN/1.73 = 58666) eGFR NON- AMER. (test 105 ML/MIN/1.73 code = 49081) CALC BUN/CREAT (test code = 27 RATIO [...] THYROX. BIND. CAPAC. (test code 1.0 = 10863) T4 (THYROXINE) (test code = 4.7 UG/DL 2819) CORRECTED T4 (FTI) (test code = 4.7 UG/DL 2820) TSH, THIRD GENERATION (test code 0.201 UIU/ML = 2821) THYROID II PROFILE (T3U, T4, T7, TSH)2019 00:00:00 Test Item Value Reference Range Interpretation Comments T-UPTAKE (test code = 7) 33.1 % THYROX. BIND. CAPAC. (test code 1.0 = 60093) T4 (THYROXINE) (test code = 4.7 UG/DL 2819) CORRECTED T4 (FTI) (test code = 4.7 UG/DL 2820) TSH, THIRD GENERATION (test code 0.201 UIU/ML = 2821) HEMOGLOBIN [id number] 00:00:00 Test Item Value Reference Range Interpretation Comments HEMOGLOBIN A1c (test code = 57252) 6.7 % HEMOGLOBIN [id number] 00:00:00 Test Item Value Reference Range Interpretation Comments HEMOGLOBIN A1c (test code = 06957) 6.7 % HEMOGLOBIN [id number] 00:00:00 Test Item Value Reference Range Interpretation Comments HEMOGLOBIN A1c (test code = 85264) 6.7 % LIPID [id number] 00:00:00 Test Item Value Reference Range Interpretation Comments CHOLESTEROL (test code = 2210) 267 MG/DL TRIGLYCERIDES (test code = 2232) 137 MG/DL HDL CHOLESTEROL (test code = 2220) 48 MG/DL CALC LDL CHOL (test code = 2237) 192 MG/DL RISK RATIO LDL/HDL (test code = 4.00 RATIO 2238) LIPID [id number] 00:00:00 Test Item Value Reference Range Interpretation Comments CHOLESTEROL (test code = 2210) 267 MG/DL TRIGLYCERIDES (test code = 2232) 137 MG/DL HDL CHOLESTEROL (test code = 2220) 48 MG/DL CALC LDL CHOL (test code = 2237) 192 MG/DL RISK RATIO LDL/HDL (test code = 4.00 RATIO 2238) COMPREHENSIVE METABOLIC [id number] 00:00:00 Test Item Value Reference Range Interpretation Comments GLUCOSE (test code = 2217) 155 MG/DL BUN (test code = 2208) 14 MG/DL CREATININE (test code = 2214) 0.52 MG/DL eGFR AMER. (test code 122 ML/MIN/1.73 = 62562) eGFR NON- AMER. (test 105 ML/MIN/1.73 code = 43751) CALC BUN/CREAT (test code = 27 RATIO [...] code = 2219) 27 U/L COMPREHENSIVE METABOLIC [id number] 00:00:00 Test Item Value Reference Range Interpretation Comments GLUCOSE (test code = 2217) 155 MG/DL BUN (test code = 2208) 14 MG/DL CREATININE (test code = 2214) 0.52 MG/DL eGFR AMER. (test code 122 ML/MIN/1.73 = 27483) eGFR NON- AMER. (test 105 ML/MIN/1.73 code = 00258) CALC BUN/CREAT (test code = 27 RATIO [...] THYROX. BIND. CAPAC. (test code 1.0 = 97096) T4 (THYROXINE) (test code = 4.7 UG/DL 2819) CORRECTED T4 (FTI) (test code = 4.7 UG/DL 2820) TSH, THIRD GENERATION (test code 0.201 UIU/ML = 2821) THYROID II PROFILE (T3U, T4, T7, TSH)2019 00:00:00 Test Item Value Reference Range Interpretation Comments T-UPTAKE (test code = 2817) 33.1 % THYROX. BIND. CAPAC. (test code 1.0 = 51800) T4 (THYROXINE) (test code = 4.7 UG/DL 2819) CORRECTED T4 (FTI) (test code = 4.7 UG/DL 2820) TSH, THIRD GENERATION (test code 0.201 UIU/ML = 2821) HEMOGLOBIN [id number] 00:00:00 Test Item Value Reference Range Interpretation Comments HEMOGLOBIN A1c (test code = 54506) 6.7 % HEMOGLOBIN [id number] 00:00:00 Test Item Value Reference Range Interpretation Comments HEMOGLOBIN A1c (test code = 92964) 6.7 % LIPID [id number] 00:00:00 Test Item Value Reference Range Interpretation Comments CHOLESTEROL (test code = 2210) 267 MG/DL TRIGLYCERIDES (test code = 2232) 137 MG/DL HDL CHOLESTEROL (test code = 2220) 48 MG/DL CALC LDL CHOL (test code = 2237) 192 MG/DL RISK RATIO LDL/HDL (test code = 4.00 RATIO 2238) COMPREHENSIVE METABOLIC [id number] 00:00:00 Test Item Value Reference Range Interpretation Comments GLUCOSE (test code = 2217) 155 MG/DL BUN (test code = 2208) 14 MG/DL CREATININE (test code = 2214) 0.52 MG/DL eGFR AMER. (test code 122 ML/MIN/1.73 = 27128) eGFR NON- AMER. (test 105 ML/MIN/1.73 code = 26857) CALC BUN/CREAT (test code = 27 RATIO [...] THYROX. BIND. CAPAC. (test code 1.0 = 21580) T4 (THYROXINE) (test code = 4.7 UG/DL 2819) CORRECTED T4 (FTI) (test code = 4.7 UG/DL 2820) TSH, THIRD GENERATION (test code 0.201 UIU/ML = 2821) HEMOGLOBIN [id number] 00:00:00 Test Item Value Reference Range Interpretation Comments HEMOGLOBIN A1c (test code = 56667) 6.7 % HEMOGLOBIN [id number] 00:00:00 Test Item Value Reference Range Interpretation Comments HEMOGLOBIN A1c (test code = 38262) 6.7 % HEMOGLOBIN [id number] 00:00:00 Test Item Value Reference Range Interpretation Comments HEMOGLOBIN A1c (test code = 37589) 6.7 % LIPID [id number] 00:00:00 Test Item Value Reference Range Interpretation Comments CHOLESTEROL (test code = 2210) 267 MG/DL TRIGLYCERIDES (test code = 2232) 137 MG/DL HDL CHOLESTEROL (test code = 2220) 48 MG/DL CALC LDL CHOL (test code = 2237) 192 MG/DL RISK RATIO LDL/HDL (test code = 4.00 RATIO 2238) LIPID [id number] 00:00:00 Test Item Value Reference Range Interpretation Comments CHOLESTEROL (test code = 2210) 267 MG/DL TRIGLYCERIDES (test code = 2232) 137 MG/DL HDL CHOLESTEROL (test code = 2220) 48 MG/DL CALC LDL CHOL (test code = 2237) 192 MG/DL RISK RATIO LDL/HDL (test code = 4.00 RATIO 2238) COMPREHENSIVE METABOLIC [id number] 00:00:00 Test Item Value Reference Range Interpretation Comments GLUCOSE (test code = 2217) 155 MG/DL BUN (test code = 2208) 14 MG/DL CREATININE (test code = 2214) 0.52 MG/DL eGFR AMER. (test code 122 ML/MIN/1.73 = 69531) eGFR NON- AMER. (test 105 ML/MIN/1.73 code = 37930) CALC BUN/CREAT (test code = 27 RATIO [...] code = 2219) 27 U/L COMPREHENSIVE METABOLIC [id number] 00:00:00 Test Item Value Reference Range Interpretation Comments GLUCOSE (test code = 2217) 155 MG/DL BUN (test code = 2208) 14 MG/DL CREATININE (test code = 2214) 0.52 MG/DL eGFR AMER. (test code 122 ML/MIN/1.73 = 75239) eGFR NON- AMER. (test 105 ML/MIN/1.73 code = 46860) CALC BUN/CREAT (test code = 27 RATIO [...] THYROX. BIND. CAPAC. (test code 1.0 = 81088) T4 (THYROXINE) (test code = 4.7 UG/DL 2819) CORRECTED T4 (FTI) (test code = 4.7 UG/DL 2820) TSH, THIRD GENERATION (test code 0.201 UIU/ML = 2821) THYROID II PROFILE (T3U, T4, T7, TSH)2019 00:00:00 Test Item Value Reference Range Interpretation Comments T-UPTAKE (test code = 2817) 33.1 % THYROX. BIND. CAPAC. (test code 1.0 = 13194) T4 (THYROXINE) (test code = 4.7 UG/DL 2819) CORRECTED T4 (FTI) (test code = 4.7 UG/DL 2820) TSH, THIRD GENERATION (test code 0.201 UIU/ML = 2821) SARS-CoV-2 (COVID-19) by RT-PCR (HIGH RISK)2019-09-18 00:00:00 Test Item Value Reference Range Interpretation Comments SARS-CoV-2 INTERPRETATION (test NEGATIVE code = 06585) SOURCE (test code = 66209) NOT SPECIFIED SARS-CoV-2 (COVID-19) by RT-PCR (HIGH RISK)2019-09-18 00:00:00 Test Item Value Reference Range Interpretation Comments SARS-CoV-2 INTERPRETATION (test NEGATIVE code = 03026) SOURCE (test code = 90222) NOT SPECIFIED SARS-CoV-2 (COVID-19) by RT-PCR (HIGH RISK)2019-09-18 00:00:00 Test Item Value Reference Range Interpretation Comments SARS-CoV-2 INTERPRETATION (test NEGATIVE code = 57549) SOURCE (test code = 56731) NOT SPECIFIED SARS-CoV-2 (COVID-19) by RT-PCR (HIGH RISK)2019-09-18 00:00:00 Test Item Value Reference Range Interpretation Comments SARS-CoV-2 INTERPRETATION (test NEGATIVE code = 38043) SOURCE (test code = 58452) NOT SPECIFIED SARS-CoV-2 (COVID-19) by RT-PCR (HIGH RISK)2019-09-18 00:00:00 Test Item Value Reference Range Interpretation Comments SARS-CoV-2 INTERPRETATION (test NEGATIVE code = 62087) SOURCE (test code = 99507) NOT SPECIFIED SARS-CoV-2 (COVID-19) by RT-PCR (HIGH RISK)2019-09-18 00:00:00 Test Item Value Reference Range Interpretation Comments SARS-CoV-2 INTERPRETATION (test NEGATIVE code = 92816) SOURCE (test code = 54107) NOT SPECIFIED SARS-CoV-2 (COVID-19) by RT-PCR (HIGH RISK)2019-09-18 00:00:00 Test Item Value Reference Range Interpretation Comments SARS-CoV-2 INTERPRETATION (test NEGATIVE code = 78120) SOURCE (test code = 27013) NOT SPECIFIED [id number] 00:00:00 Test Item Value Reference Range Interpretation Comments TSH, THIRD GENERATION (test code 2.490 UIU/ML = 2821) [id number] 00:00:00 Test Item Value Reference Range Interpretation Comments TSH, THIRD GENERATION (test code 2.490 UIU/ML = 2821) [id number] 00:00:00 Test Item Value Reference Range Interpretation Comments TSH, THIRD GENERATION (test code 2.490 UIU/ML = 2821) HEMOGLOBIN [id number] 00:00:00 Test Item Value Reference Range Interpretation Comments HEMOGLOBIN A1c (test code = 19029) 6.4 % HEMOGLOBIN [id number] 00:00:00 Test Item Value Reference Range Interpretation Comments HEMOGLOBIN A1c (test code = 01504) 6.4 % HEMOGLOBIN [id number] 00:00:00 Test Item Value Reference Range Interpretation Comments HEMOGLOBIN A1c (test code = 46137) 6.4 % COMPREHENSIVE METABOLIC [id number] 00:00:00 Test Item Value Reference Range Interpretation Comments GLUCOSE (test code = 2217) 206 MG/DL BUN (test code = 2208) 23 MG/DL CREATININE (test code = 2214) 0.67 MG/DL eGFR AMER. (test code 112 ML/MIN/1.73 = 22524) eGFR NON- AMER. (test 97 ML/MIN/1.73 code = 15814) CALC BUN/CREAT (test code = 34 RATIO [...] code = 2219) 25 U/L COMPREHENSIVE METABOLIC [id number] 00:00:00 Test Item Value Reference Range Interpretation Comments GLUCOSE (test code = 2217) 206 MG/DL BUN (test code = 2208) 23 MG/DL CREATININE (test code = 2214) 0.67 MG/DL eGFR AMER. (test code 112 ML/MIN/1.73 = 96986) eGFR NON- AMER. (test 97 ML/MIN/1.73 code = 13243) CALC BUN/CREAT (test code = 34 RATIO [...] ALT (test code = 2219) 25 U/L [id number] 00:00:00 Test Item Value Reference Range Interpretation Comments TSH, THIRD GENERATION (test code 2.490 UIU/ML = 2821) [id number] 00:00:00 Test Item Value Reference Range Interpretation Comments TSH, THIRD GENERATION (test code 2.490 UIU/ML = 2821) [id number] 00:00:00 Test Item Value Reference Range Interpretation Comments TSH, THIRD GENERATION (test code 2.490 UIU/ML = 2821) HEMOGLOBIN [id number] 00:00:00 Test Item Value Reference Range Interpretation Comments HEMOGLOBIN A1c (test code = 21791) 6.4 % HEMOGLOBIN [id number] 00:00:00 Test Item Value Reference Range Interpretation Comments HEMOGLOBIN A1c (test code = 42808) 6.4 % HEMOGLOBIN [id number] 00:00:00 Test Item Value Reference Range Interpretation Comments HEMOGLOBIN A1c (test code = 71680) 6.4 % COMPREHENSIVE METABOLIC [id number] 00:00:00 Test Item Value Reference Range Interpretation Comments GLUCOSE (test code = 2217) 206 MG/DL BUN (test code = 2208) 23 MG/DL CREATININE (test code = 2214) 0.67 MG/DL eGFR AMER. (test code 112 ML/MIN/1.73 = 96515) eGFR NON- AMER. (test 97 ML/MIN/1.73 code = 95828) CALC BUN/CREAT (test code = 34 RATIO [...] code = 2219) 25 U/L COMPREHENSIVE METABOLIC [id number] 00:00:00 Test Item Value Reference Range Interpretation Comments GLUCOSE (test code = 2217) 206 MG/DL BUN (test code = 2208) 23 MG/DL CREATININE (test code = 2214) 0.67 MG/DL eGFR AMER. (test code 112 ML/MIN/1.73 = 71310) eGFR NON- AMER. (test 97 ML/MIN/1.73 code = 64571) CALC BUN/CREAT (test code = 34 RATIO [...] ALT (test code = 2219) 25 U/L [id number] 00:00:00 Test Item Value Reference Range Interpretation Comments TSH, THIRD GENERATION (test code 2.490 UIU/ML = 2821) [id number] 00:00:00 Test Item Value Reference Range Interpretation Comments TSH, THIRD GENERATION (test code 2.490 UIU/ML = 2821) HEMOGLOBIN [id number] 00:00:00 Test Item Value Reference Range Interpretation Comments HEMOGLOBIN A1c (test code = 01992) 6.4 % HEMOGLOBIN [id number] 00:00:00 Test Item Value Reference Range Interpretation Comments HEMOGLOBIN A1c (test code = 14739) 6.4 % COMPREHENSIVE METABOLIC [id number] 00:00:00 Test Item Value Reference Range Interpretation Comments GLUCOSE (test code = 2217) 206 MG/DL BUN (test code = 2208) 23 MG/DL CREATININE (test code = 2214) 0.67 MG/DL eGFR AMER. (test code 112 ML/MIN/1.73 = 83069) eGFR NON- AMER. (test 97 ML/MIN/1.73 code = 20213) CALC BUN/CREAT (test code = 34 RATIO [...] ALT (test code = 2219) 25 U/L [id number] 00:00:00 Test Item Value Reference Range Interpretation Comments TSH, THIRD GENERATION (test code 2.490 UIU/ML = 2821) [id number] 00:00:00 Test Item Value Reference Range Interpretation Comments TSH, THIRD GENERATION (test code 2.490 UIU/ML = 2821) [id number] 00:00:00 Test Item Value Reference Range Interpretation Comments TSH, THIRD GENERATION (test code 2.490 UIU/ML = 2821) HEMOGLOBIN [id number] 00:00:00 Test Item Value Reference Range Interpretation Comments HEMOGLOBIN A1c (test code = 04743) 6.4 % HEMOGLOBIN [id number] 00:00:00 Test Item Value Reference Range Interpretation Comments HEMOGLOBIN A1c (test code = 23159) 6.4 % HEMOGLOBIN [id number] 00:00:00 Test Item Value Reference Range Interpretation Comments HEMOGLOBIN A1c (test code = 91440) 6.4 % COMPREHENSIVE METABOLIC [id number] 00:00:00 Test Item Value Reference Range Interpretation Comments GLUCOSE (test code = 2217) 206 MG/DL BUN (test code = 2208) 23 MG/DL CREATININE (test code = 2214) 0.67 MG/DL eGFR AMER. (test code 112 ML/MIN/1.73 = 67859) eGFR NON- AMER. (test 97 ML/MIN/1.73 code = 07843) CALC BUN/CREAT (test code = 34 RATIO [...] code = 2219) 25 U/L COMPREHENSIVE METABOLIC [id number] 00:00:00 Test Item Value Reference Range Interpretation Comments GLUCOSE (test code = 2217) 206 MG/DL BUN (test code = 2208) 23 MG/DL CREATININE (test code = 2214) 0.67 MG/DL eGFR AMER. (test code 112 ML/MIN/1.73 = 47214) eGFR NON- AMER. (test 97 ML/MIN/1.73 code = 71202) CALC BUN/CREAT (test code = 34 RATIO 2235) SODIUM (test code = 2231) 142 MEQ/L POTASSIUM (test code = 2228) 4.1 MEQ/L CHLORIDE (test code = 2215) 99 MEQ/L CARBON DIOXIDE (test code = 28 MEQ/L 2205) CALCIUM (test code = 2209) 8.8 MG/DL PROTEIN, TOTAL (test code = 6.8 G/DL 9) ALBUMIN (test code = 2201) 4.6 G/DL CALC GLOBULIN (test code = 2.2 G/DL 2240) CALC A/G RATIO (test code = 2.1 RATIO 2234) BILIRUBIN, TOTAL (test code = <0.2 MG/DL 220) ALKALINE PHOSPHATASE (test 105 U/L code = 2204) AST (test code = 2218) 17 U/L ALT (test code = 2219) 25 U/L VAGINAL PATHOGENS DNA [id number] 00:00:00 Test Item Value Reference Range Interpretation Comments MARK SPECIES (test code = 17045) NEGATIVE G. VAGINALIS (test code = 49721) NEGATIVE T. VAGINALIS (test code = 68789) NEGATIVE VAGINAL PATHOGENS DNA [id number] 00:00:00 Test Item Value Reference Range Interpretation Comments MRAK SPECIES (test code = 43775) NEGATIVE G. VAGINALIS (test code = 10715) NEGATIVE T. VAGINALIS (test code = 02358) NEGATIVE VAGINAL PATHOGENS DNA [id number] 00:00:00 Test Item Value Reference Range Interpretation Comments MARK SPECIES (test code = 87114) NEGATIVE G. VAGINALIS (test code = 88665) NEGATIVE T. VAGINALIS (test code = 82175) NEGATIVE VAGINAL PATHOGENS DNA [id number] 00:00:00 Test Item Value Reference Range Interpretation Comments MARK SPECIES (test code = 67529) NEGATIVE G. VAGINALIS (test code = 33373) NEGATIVE T. VAGINALIS (test code = 60398) NEGATIVE VAGINAL PATHOGENS DNA [id number] 00:00:00 Test Item Value Reference Range Interpretation Comments MARK SPECIES (test code = 80846) NEGATIVE G. VAGINALIS (test code = 61594) NEGATIVE T. VAGINALIS (test code = 78149) NEGATIVE VAGINAL PATHOGENS DNA [id number] 00:00:00 Test Item Value Reference Range Interpretation Comments MARK SPECIES (test code = 35690) NEGATIVE G. VAGINALIS (test code = 56840) NEGATIVE T. VAGINALIS (test code = 27513) NEGATIVE VAGINAL PATHOGENS DNA [id number] 00:00:00 Test Item Value Reference Range Interpretation Comments MARK SPECIES (test code = 36272) NEGATIVE G. VAGINALIS (test code = 04641) NEGATIVE T. VAGINALIS (test code = 47786) NEGATIVE HEMOGLOBIN A1c [ADDED]2018-12-01 00:00:00 Test Item Value Reference Range Interpretation Comments HEMOGLOBIN A1c (test code = 68164) 6.7 % HEMOGLOBIN A1c [ADDED]2018-12-01 00:00:00 Test Item Value Reference Range Interpretation Comments HEMOGLOBIN A1c (test code = 02970) 6.7 % HEMOGLOBIN A1c [ADDED]2018-12-01 00:00:00 Test Item Value Reference Range Interpretation Comments HEMOGLOBIN A1c (test code = 64538) 6.7 % COMPREHENSIVE METABOLIC PANEL [ADDED]2018-12-01 00:00:00 Test Item Value Reference Range Interpretation Comments GLUCOSE (test code = 2217) 136 MG/DL BUN (test code = 2208) 15 MG/DL CREATININE (test code = 2214) 0.64 MG/DL eGFR AMER. (test code 115 ML/MIN/1.73 = 34005) eGFR NON- AMER. (test 99 ML/MIN/1.73 code = 44226) CALC BUN/CREAT (test code = 23 RATIO [...] eGFR AMER. (test code 115 ML/MIN/1.73 = 71753) eGFR NON- AMER. (test 99 ML/MIN/1.73 code = 66243) CALC BUN/CREAT (test code = 23 RATIO [...] Interpretation Comments HEMOGLOBIN A1c (test code = 95367) 6.7 % HEMOGLOBIN A1c [ADDED]2018-12-01 00:00:00 Test Item Value Reference Range Interpretation Comments HEMOGLOBIN A1c (test code = 53736) 6.7 % HEMOGLOBIN A1c [ADDED]2018-12-01 00:00:00 Test Item Value Reference Range Interpretation Comments HEMOGLOBIN A1c (test code = 47382) 6.7 % COMPREHENSIVE METABOLIC PANEL [ADDED]2018-12-01 00:00:00 Test Item Value Reference Range Interpretation Comments GLUCOSE (test code = 2217) 136 MG/DL BUN (test code = 2208) 15 MG/DL CREATININE (test code = 2214) 0.64 MG/DL eGFR AMER. (test code 115 ML/MIN/1.73 = 06837) eGFR NON- AMER. (test 99 ML/MIN/1.73 code = 67378) CALC BUN/CREAT (test code = 23 RATIO [...] eGFR AMER. (test code 115 ML/MIN/1.73 = 19558) eGFR NON- AMER. (test 99 ML/MIN/1.73 code = 35908) CALC BUN/CREAT (test code = 23 RATIO [...] Interpretation Comments HEMOGLOBIN A1c (test code = 34458) 6.7 % HEMOGLOBIN A1c [ADDED]2018-12-01 00:00:00 Test Item Value Reference Range Interpretation Comments HEMOGLOBIN A1c (test code = 61208) 6.7 % COMPREHENSIVE METABOLIC PANEL [ADDED]2018-12-01 00:00:00 Test Item Value Reference Range Interpretation Comments GLUCOSE (test code = 2217) 136 MG/DL BUN (test code = 2208) 15 MG/DL CREATININE (test code = 2214) 0.64 MG/DL eGFR AMER. (test code 115 ML/MIN/1.73 = 61559) eGFR NON- AMER. (test 99 ML/MIN/1.73 code = 55098) CALC BUN/CREAT (test code = 23 RATIO [...] Interpretation Comments HEMOGLOBIN A1c (test code = 28182) 6.7 % HEMOGLOBIN A1c [ADDED]2018-12-01 00:00:00 Test Item Value Reference Range Interpretation Comments HEMOGLOBIN A1c (test code = 08411) 6.7 % HEMOGLOBIN A1c [ADDED]2018-12-01 00:00:00 Test Item Value Reference Range Interpretation Comments HEMOGLOBIN A1c (test code = 16450) 6.7 % COMPREHENSIVE METABOLIC PANEL [ADDED]2018-12-01 00:00:00 Test Item Value Reference Range Interpretation Comments GLUCOSE (test code = 2217) 136 MG/DL BUN (test code = 2208) 15 MG/DL CREATININE (test code = 2214) 0.64 MG/DL eGFR AMER. (test code 115 ML/MIN/1.73 = 89025) eGFR NON- AMER. (test 99 ML/MIN/1.73 code = 05578) CALC BUN/CREAT (test code = 23 RATIO [...] eGFR AMER. (test code 115 ML/MIN/1.73 = 89017) eGFR NON- AMER. (test 99 ML/MIN/1.73 code = 31606) CALC BUN/CREAT (test code = 23 RATIO [...] code 1.280 UIU/ML = 2821) CBC W/AUTO [id number] 00:00:00 Test Item Value Reference Range Interpretation [...] code = 1015) 346 K/UL CBC W/AUTO [id number] 00:00:00 Test Item Value Reference Range Interpretation [...] code = 1015) 346 K/UL CBC W/AUTO [id number] 00:00:00 Test Item Value Reference Range Interpretation [...] (test code = 1015) 346 K/UL HEMOGLOBIN [id number] 00:00:00 Test Item Value Reference Range Interpretation Comments HEMOGLOBIN A1c (test code = 52333) 5.9 % HEMOGLOBIN [id number] 00:00:00 Test Item Value Reference Range Interpretation Comments HEMOGLOBIN A1c (test code = 11027) 5.9 % HEMOGLOBIN [id number] 00:00:00 Test Item Value Reference Range Interpretation Comments HEMOGLOBIN A1c (test code = 12630) 5.9 % LIPID [id number] 00:00:00 Test Item Value Reference Range Interpretation Comments CHOLESTEROL (test code = 2210) 318 MG/DL TRIGLYCERIDES (test code = 2232) 263 MG/DL HDL CHOLESTEROL (test code = 2220) 51 MG/DL CALC LDL CHOL (test code = 2237) 214 MG/DL RISK RATIO LDL/HDL (test code = 4.20 RATIO 2238) LIPID [id number] 00:00:00 Test Item Value Reference Range Interpretation Comments CHOLESTEROL (test code = 2210) 318 MG/DL TRIGLYCERIDES (test code = 2232) 263 MG/DL HDL CHOLESTEROL (test code = 2220) 51 MG/DL CALC LDL CHOL (test code = 2237) 214 MG/DL RISK RATIO LDL/HDL (test code = 4.20 RATIO 2238) COMPREHENSIVE METABOLIC [id number] 00:00:00 Test Item Value Reference Range Interpretation Comments GLUCOSE (test code = 2217) 113 MG/DL BUN (test code = 2208) 18 MG/DL CREATININE (test code = 2214) 0.70 MG/DL eGFR AMER. (test code 111 ML/MIN/1.73 = 29429) eGFR NON- AMER. (test 96 ML/MIN/1.73 code = 48211) CALC BUN/CREAT (test code = 26 RATIO [...] code = 2219) 31 U/L COMPREHENSIVE METABOLIC [id number] 00:00:00 Test Item Value Reference Range Interpretation Comments GLUCOSE (test code = 2217) 113 MG/DL BUN (test code = 2208) 18 MG/DL CREATININE (test code = 2214) 0.70 MG/DL eGFR AMER. (test code 111 ML/MIN/1.73 = 27336) eGFR NON- AMER. (test 96 ML/MIN/1.73 code = 30243) CALC BUN/CREAT (test code = 26 RATIO [...] ALT (test code = 2219) 31 U/L [id number] 00:00:00 Test Item Value Reference Range Interpretation Comments TSH, THIRD GENERATION (test code 2.520 UIU/ML = 2821) [id number] 00:00:00 Test Item Value Reference Range Interpretation Comments TSH, THIRD GENERATION (test code 2.520 UIU/ML = 2821) [id number] 00:00:00 Test Item Value Reference Range Interpretation Comments TSH, THIRD GENERATION (test code 2.520 UIU/ML = 2821) CBC W/AUTO [id number] 00:00:00 Test Item Value Reference Range Interpretation [...] code = 1015) 346 K/UL CBC W/AUTO [id number] 00:00:00 Test Item Value Reference Range Interpretation [...] code = 1015) 346 K/UL CBC W/AUTO [id number] 00:00:00 Test Item Value Reference Range Interpretation [...] (test code = 1015) 346 K/UL HEMOGLOBIN [id number] 00:00:00 Test Item Value Reference Range Interpretation Comments HEMOGLOBIN A1c (test code = 26920) 5.9 % HEMOGLOBIN [id number] 00:00:00 Test Item Value Reference Range Interpretation Comments HEMOGLOBIN A1c (test code = 81376) 5.9 % HEMOGLOBIN [id number] 00:00:00 Test Item Value Reference Range Interpretation Comments HEMOGLOBIN A1c (test code = 99384) 5.9 % LIPID [id number] 00:00:00 Test Item Value Reference Range Interpretation Comments CHOLESTEROL (test code = 2210) 318 MG/DL TRIGLYCERIDES (test code = 2232) 263 MG/DL HDL CHOLESTEROL (test code = 2220) 51 MG/DL CALC LDL CHOL (test code = 2237) 214 MG/DL RISK RATIO LDL/HDL (test code = 4.20 RATIO 2238) LIPID [id number] 00:00:00 Test Item Value Reference Range Interpretation Comments CHOLESTEROL (test code = 2210) 318 MG/DL TRIGLYCERIDES (test code = 2232) 263 MG/DL HDL CHOLESTEROL (test code = 2220) 51 MG/DL CALC LDL CHOL (test code = 2237) 214 MG/DL RISK RATIO LDL/HDL (test code = 4.20 RATIO 2238) COMPREHENSIVE METABOLIC [id number] 00:00:00 Test Item Value Reference Range Interpretation Comments GLUCOSE (test code = 2217) 113 MG/DL BUN (test code = 2208) 18 MG/DL CREATININE (test code = 2214) 0.70 MG/DL eGFR AMER. (test code 111 ML/MIN/1.73 = 13922) eGFR NON- AMER. (test 96 ML/MIN/1.73 code = 69606) CALC BUN/CREAT (test code = 26 RATIO [...] code = 2219) 31 U/L COMPREHENSIVE METABOLIC [id number] 00:00:00 Test Item Value Reference Range Interpretation Comments GLUCOSE (test code = 2217) 113 MG/DL BUN (test code = 2208) 18 MG/DL CREATININE (test code = 2214) 0.70 MG/DL eGFR AMER. (test code 111 ML/MIN/1.73 = 16832) eGFR NON- AMER. (test 96 ML/MIN/1.73 code = 03548) CALC BUN/CREAT (test code = 26 RATIO [...] ALT (test code = 2219) 31 U/L [id number] 00:00:00 Test Item Value Reference Range Interpretation Comments TSH, THIRD GENERATION (test code 2.520 UIU/ML = 2821) [id number] 00:00:00 Test Item Value Reference Range Interpretation Comments TSH, THIRD GENERATION (test code 2.520 UIU/ML = 2821) [id number] 00:00:00 Test Item Value Reference Range Interpretation Comments TSH, THIRD GENERATION (test code 2.520 UIU/ML = 2821) CBC W/AUTO [id number] 00:00:00 Test Item Value Reference Range Interpretation [...] code = 1015) 346 K/UL CBC W/AUTO [id number] 00:00:00 Test Item Value Reference Range Interpretation [...] (test code = 1015) 346 K/UL HEMOGLOBIN [id number] 00:00:00 Test Item Value Reference Range Interpretation Comments HEMOGLOBIN A1c (test code = 09572) 5.9 % HEMOGLOBIN [id number] 00:00:00 Test Item Value Reference Range Interpretation Comments HEMOGLOBIN A1c (test code = 01566) 5.9 % LIPID [id number] 00:00:00 Test Item Value Reference Range Interpretation Comments CHOLESTEROL (test code = 2210) 318 MG/DL TRIGLYCERIDES (test code = 2232) 263 MG/DL HDL CHOLESTEROL (test code = 2220) 51 MG/DL CALC LDL CHOL (test code = 2237) 214 MG/DL RISK RATIO LDL/HDL (test code = 4.20 RATIO 2238) COMPREHENSIVE METABOLIC [id number] 00:00:00 Test Item Value Reference Range Interpretation Comments GLUCOSE (test code = 2217) 113 MG/DL BUN (test code = 2208) 18 MG/DL CREATININE (test code = 2214) 0.70 MG/DL eGFR AMER. (test code 111 ML/MIN/1.73 = 56629) eGFR NON- AMER. (test 96 ML/MIN/1.73 code = 45909) CALC BUN/CREAT (test code = 26 RATIO [...] ALT (test code = 2219) 31 U/L [id number] 00:00:00 Test Item Value Reference Range Interpretation Comments TSH, THIRD GENERATION (test code 2.520 UIU/ML = 2821) [id number] 00:00:00 Test Item Value Reference Range Interpretation Comments TSH, THIRD GENERATION (test code 2.520 UIU/ML = 2821) CBC W/AUTO [id number] 00:00:00 Test Item Value Reference Range Interpretation [...] code = 1015) 346 K/UL CBC W/AUTO [id number] 00:00:00 Test Item Value Reference Range Interpretation [...] code = 1015) 346 K/UL CBC W/AUTO [id number] 00:00:00 Test Item Value Reference Range Interpretation [...] (test code = 1015) 346 K/UL HEMOGLOBIN [id number] 00:00:00 Test Item Value Reference Range Interpretation Comments HEMOGLOBIN A1c (test code = 23440) 5.9 % HEMOGLOBIN [id number] 00:00:00 Test Item Value Reference Range Interpretation Comments HEMOGLOBIN A1c (test code = 75757) 5.9 % HEMOGLOBIN [id number] 00:00:00 Test Item Value Reference Range Interpretation Comments HEMOGLOBIN A1c (test code = 86494) 5.9 % LIPID [id number] 00:00:00 Test Item Value Reference Range Interpretation Comments CHOLESTEROL (test code = 2210) 318 MG/DL TRIGLYCERIDES (test code = 2232) 263 MG/DL HDL CHOLESTEROL (test code = 2220) 51 MG/DL CALC LDL CHOL (test code = 2237) 214 MG/DL RISK RATIO LDL/HDL (test code = 4.20 RATIO 2238) LIPID [id number] 00:00:00 Test Item Value Reference Range Interpretation Comments CHOLESTEROL (test code = 2210) 318 MG/DL TRIGLYCERIDES (test code = 2232) 263 MG/DL HDL CHOLESTEROL (test code = 2220) 51 MG/DL CALC LDL CHOL (test code = 2237) 214 MG/DL RISK RATIO LDL/HDL (test code = 4.20 RATIO 2238) COMPREHENSIVE METABOLIC [id number] 00:00:00 Test Item Value Reference Range Interpretation Comments GLUCOSE (test code = 2217) 113 MG/DL BUN (test code = 2208) 18 MG/DL CREATININE (test code = 2214) 0.70 MG/DL eGFR AMER. (test code 111 ML/MIN/1.73 = 47140) eGFR NON- AMER. (test 96 ML/MIN/1.73 code = 79074) CALC BUN/CREAT (test code = 26 RATIO [...] code = 2219) 31 U/L COMPREHENSIVE METABOLIC [id number] 00:00:00 Test Item Value Reference Range Interpretation Comments GLUCOSE (test code = 2217) 113 MG/DL BUN (test code = 2208) 18 MG/DL CREATININE (test code = 2214) 0.70 MG/DL eGFR AMER. (test code 111 ML/MIN/1.73 = 26075) eGFR NON- AMER. (test 96 ML/MIN/1.73 code = 64395) CALC BUN/CREAT (test code = 26 RATIO [...] ALT (test code = 2219) 31 U/L [id number] 00:00:00 Test Item Value Reference Range Interpretation Comments TSH, THIRD GENERATION (test code 2.520 UIU/ML = 2821) [id number] 00:00:00 Test Item Value Reference Range Interpretation Comments TSH, THIRD GENERATION (test code 2.520 UIU/ML = 2821) [id number] 00:00:00 Test Item Value Reference Range Interpretation Comments TSH, THIRD GENERATION (test code 2.520 UIU/ML = 2821) CULTURE, [id number] 00:00:00 Test Item Value Reference Range Interpretation Comments CULTURE, URINE (test SPECIMEN NUMBER: code = 87216) [id number] CULTURE, [id number] 00:00:00 Test Item Value Reference Range Interpretation Comments CULTURE, URINE (test SPECIMEN NUMBER: code = 67182) [id number] CULTURE, [id number] 00:00:00 Test Item Value Reference Range Interpretation Comments CULTURE, URINE (test SPECIMEN NUMBER: code = 17526) [id number] CULTURE, [id number] 00:00:00 Test Item Value Reference Range Interpretation Comments CULTURE, URINE (test SPECIMEN NUMBER: code = 45577) [id number] CULTURE, [id number] 00:00:00 Test Item Value Reference Range Interpretation Comments CULTURE, URINE (test SPECIMEN NUMBER: code = 03904) [id number] CULTURE, [id number] 00:00:00 Test Item Value Reference Range Interpretation Comments CULTURE, URINE (test SPECIMEN NUMBER: code = 81553) [id number] CULTURE, [id number] 00:00:00 Test Item Value Reference Range Interpretation Comments CULTURE, URINE (test SPECIMEN NUMBER: code = 20365) [id number] CULTURE, [id number] 00:00:00 Test Item Value Reference Range Interpretation Comments CULTURE, URINE (test SPECIMEN NUMBER: code = 70920) [id number] CULTURE, [id number] 00:00:00 Test Item Value Reference Range Interpretation Comments CULTURE, URINE (test SPECIMEN NUMBER: code = 63514) [id number] CULTURE, [id number] 00:00:00 Test Item Value Reference Range Interpretation Comments CULTURE, URINE (test SPECIMEN NUMBER: code = 13741) [id number] CULTURE, [id number] 00:00:00 Test Item Value Reference Range Interpretation Comments CULTURE, URINE (test SPECIMEN NUMBER: code = 75724) [id number] CULTURE, [id number] 00:00:00 Test Item Value Reference Range Interpretation Comments CULTURE, URINE (test SPECIMEN NUMBER: code = 95828) [id number] CULTURE, [id number] 00:00:00 Test Item Value Reference Range Interpretation Comments CULTURE, URINE (test SPECIMEN NUMBER: code = 47010) [id number] CULTURE, [id number] 00:00:00 Test Item Value Reference Range Interpretation Comments CULTURE, URINE (test SPECIMEN NUMBER: code = 39832) [id number] BASIC METABOLIC [id number] 00:00:00 Test Item Value Reference Range Interpretation Comments GLUCOSE (test code = 2217) 135 MG/DL BUN (test code = 2208) 25 MG/DL CREATININE (test code = 2214) 0.76 MG/DL eGFR AMER. (test code 101 ML/MIN/1.73 = 94267) eGFR NON- AMER. (test 87 ML/MIN/1.73 code = 11446) SODIUM (test code = 2231) 139 MEQ/L POTASSIUM (test code = 2228) 4.7 MEQ/L CHLORIDE (test code = 2215) 99 MEQ/L CARBON DIOXIDE (test code = 26 MEQ/L 2206) CALCIUM (test code = 2209) 9.4 MG/DL BASIC METABOLIC [id number] 00:00:00 Test Item Value Reference Range Interpretation Comments GLUCOSE (test code = 2217) 135 MG/DL BUN (test code = 2208) 25 MG/DL CREATININE (test code = 2214) 0.76 MG/DL eGFR AMER. (test code 101 ML/MIN/1.73 = 80865) eGFR NON- AMER. (test 87 ML/MIN/1.73 code = 61002) SODIUM (test code = 2231) 139 MEQ/L POTASSIUM (test code = 2228) 4.7 MEQ/L CHLORIDE (test code = 2215) 99 MEQ/L CARBON DIOXIDE (test code = 26 MEQ/L 2206) CALCIUM (test code = 2209) 9.4 MG/DL LIPID [id number] 00:00:00 Test Item Value Reference Range Interpretation Comments CHOLESTEROL (test code = 2210) 262 MG/DL TRIGLYCERIDES (test code = 2232) 300 MG/DL HDL CHOLESTEROL (test code = 2220) 36 MG/DL CALC LDL CHOL (test code = 2237) 166 MG/DL RISK RATIO LDL/HDL (test code = 4.61 RATIO 2238) LIPID [id number] 00:00:00 Test Item Value Reference Range Interpretation Comments CHOLESTEROL (test code = 2210) 262 MG/DL TRIGLYCERIDES (test code = 2232) 300 MG/DL HDL CHOLESTEROL (test code = 2220) 36 MG/DL CALC LDL CHOL (test code = 2237) 166 MG/DL RISK RATIO LDL/HDL (test code = 4.61 RATIO 2238) HEMOGLOBIN [id number] 00:00:00 Test Item Value Reference Range Interpretation Comments HEMOGLOBIN A1c (test code = 26477) 6.2 % HEMOGLOBIN [id number] 00:00:00 Test Item Value Reference Range Interpretation Comments HEMOGLOBIN A1c (test code = 00200) 6.2 % HEMOGLOBIN [id number] 00:00:00 Test Item Value Reference Range Interpretation Comments HEMOGLOBIN A1c (test code = 20279) 6.2 % [id number] 00:00:00 Test Item Value Reference Range Interpretation Comments TSH, THIRD GENERATION (test code 0.988 UIU/ML = 2821) [id number] 00:00:00 Test Item Value Reference Range Interpretation Comments TSH, THIRD GENERATION (test code 0.988 UIU/ML = 2821) [id number] 00:00:00 Test Item Value Reference Range Interpretation Comments TSH, THIRD GENERATION (test code 0.988 UIU/ML = 2821) BASIC METABOLIC [id number] 00:00:00 Test Item Value Reference Range Interpretation Comments GLUCOSE (test code = 2217) 135 MG/DL BUN (test code = 2208) 25 MG/DL CREATININE (test code = 2214) 0.76 MG/DL eGFR AMER. (test code 101 ML/MIN/1.73 = 41944) eGFR NON- AMER. (test 87 ML/MIN/1.73 code = 63179) SODIUM (test code = 2231) 139 MEQ/L POTASSIUM (test code = 2228) 4.7 MEQ/L CHLORIDE (test code = 2215) 99 MEQ/L CARBON DIOXIDE (test code = 26 MEQ/L 2206) CALCIUM (test code = 2209) 9.4 MG/DL BASIC METABOLIC [id number] 00:00:00 Test Item Value Reference Range Interpretation Comments GLUCOSE (test code = 2217) 135 MG/DL BUN (test code = 2208) 25 MG/DL CREATININE (test code = 2214) 0.76 MG/DL eGFR AMER. (test code 101 ML/MIN/1.73 = 29529) eGFR NON- AMER. (test 87 ML/MIN/1.73 code = 73797) SODIUM (test code = 2231) 139 MEQ/L POTASSIUM (test code = 2228) 4.7 MEQ/L CHLORIDE (test code = 2215) 99 MEQ/L CARBON DIOXIDE (test code = 26 MEQ/L 2206) CALCIUM (test code = 2209) 9.4 MG/DL LIPID [id number] 00:00:00 Test Item Value Reference Range Interpretation Comments CHOLESTEROL (test code = 2210) 262 MG/DL TRIGLYCERIDES (test code = 2232) 300 MG/DL HDL CHOLESTEROL (test code = 2220) 36 MG/DL CALC LDL CHOL (test code = 2237) 166 MG/DL RISK RATIO LDL/HDL (test code = 4.61 RATIO 2238) LIPID [id number] 00:00:00 Test Item Value Reference Range Interpretation Comments CHOLESTEROL (test code = 2210) 262 MG/DL TRIGLYCERIDES (test code = 2232) 300 MG/DL HDL CHOLESTEROL (test code = 2220) 36 MG/DL CALC LDL CHOL (test code = 2237) 166 MG/DL RISK RATIO LDL/HDL (test code = 4.61 RATIO 2238) HEMOGLOBIN [id number] 00:00:00 Test Item Value Reference Range Interpretation Comments HEMOGLOBIN A1c (test code = 54290) 6.2 % HEMOGLOBIN [id number] 00:00:00 Test Item Value Reference Range Interpretation Comments HEMOGLOBIN A1c (test code = 60747) 6.2 % HEMOGLOBIN [id number] 00:00:00 Test Item Value Reference Range Interpretation Comments HEMOGLOBIN A1c (test code = 32911) 6.2 % [id number] 00:00:00 Test Item Value Reference Range Interpretation Comments TSH, THIRD GENERATION (test code 0.988 UIU/ML = 2821) [id number] 00:00:00 Test Item Value Reference Range Interpretation Comments TSH, THIRD GENERATION (test code 0.988 UIU/ML = 2821) [id number] 00:00:00 Test Item Value Reference Range Interpretation Comments TSH, THIRD GENERATION (test code 0.988 UIU/ML = 2821) BASIC METABOLIC [id number] 00:00:00 Test Item Value Reference Range Interpretation Comments GLUCOSE (test code = 2217) 135 MG/DL BUN (test code = 2208) 25 MG/DL CREATININE (test code = 2214) 0.76 MG/DL eGFR AMER. (test code 101 ML/MIN/1.73 = 14236) eGFR NON- AMER. (test 87 ML/MIN/1.73 code = 92696) SODIUM (test code = 2231) 139 MEQ/L POTASSIUM (test code = 2228) 4.7 MEQ/L CHLORIDE (test code = 2215) 99 MEQ/L CARBON DIOXIDE (test code = 26 MEQ/L 2206) CALCIUM (test code = 2209) 9.4 MG/DL LIPID [id number] 00:00:00 Test Item Value Reference Range Interpretation Comments CHOLESTEROL (test code = 2210) 262 MG/DL TRIGLYCERIDES (test code = 2232) 300 MG/DL HDL CHOLESTEROL (test code = 2220) 36 MG/DL CALC LDL CHOL (test code = 2237) 166 MG/DL RISK RATIO LDL/HDL (test code = 4.61 RATIO 2238) HEMOGLOBIN [id number] 00:00:00 Test Item Value Reference Range Interpretation Comments HEMOGLOBIN A1c (test code = 71776) 6.2 % HEMOGLOBIN [id number] 00:00:00 Test Item Value Reference Range Interpretation Comments HEMOGLOBIN A1c (test code = 40127) 6.2 % [id number] 00:00:00 Test Item Value Reference Range Interpretation Comments TSH, THIRD GENERATION (test code 0.988 UIU/ML = 2821) [id number] 00:00:00 Test Item Value Reference Range Interpretation Comments TSH, THIRD GENERATION (test code 0.988 UIU/ML = 2821) BASIC METABOLIC [id number] 00:00:00 Test Item Value Reference Range Interpretation Comments GLUCOSE (test code = 2217) 135 MG/DL BUN (test code = 2208) 25 MG/DL CREATININE (test code = 2214) 0.76 MG/DL eGFR AMER. (test code 101 ML/MIN/1.73 = 43517) eGFR NON- AMER. (test 87 ML/MIN/1.73 code = 29132) SODIUM (test code = 2231) 139 MEQ/L POTASSIUM (test code = 2228) 4.7 MEQ/L CHLORIDE (test code = 2215) 99 MEQ/L CARBON DIOXIDE (test code = 26 MEQ/L 2206) CALCIUM (test code = 2209) 9.4 MG/DL BASIC METABOLIC [id number] 00:00:00 Test Item Value Reference Range Interpretation Comments GLUCOSE (test code = 2217) 135 MG/DL BUN (test code = 2208) 25 MG/DL CREATININE (test code = 2214) 0.76 MG/DL eGFR AMER. (test code 101 ML/MIN/1.73 = 03725) eGFR NON- AMER. (test 87 ML/MIN/1.73 code = 23240) SODIUM (test code = 2231) 139 MEQ/L POTASSIUM (test code = 2228) 4.7 MEQ/L CHLORIDE (test code = 2215) 99 MEQ/L CARBON DIOXIDE (test code = 26 MEQ/L 2206) CALCIUM (test code = 2209) 9.4 MG/DL LIPID [id number] 00:00:00 Test Item Value Reference Range Interpretation Comments CHOLESTEROL (test code = 2210) 262 MG/DL TRIGLYCERIDES (test code = 2232) 300 MG/DL HDL CHOLESTEROL (test code = 2220) 36 MG/DL CALC LDL CHOL (test code = 2237) 166 MG/DL RISK RATIO LDL/HDL (test code = 4.61 RATIO 2238) LIPID [id number] 00:00:00 Test Item Value Reference Range Interpretation Comments CHOLESTEROL (test code = 2210) 262 MG/DL TRIGLYCERIDES (test code = 2232) 300 MG/DL HDL CHOLESTEROL (test code = 2220) 36 MG/DL CALC LDL CHOL (test code = 2237) 166 MG/DL RISK RATIO LDL/HDL (test code = 4.61 RATIO 2238) HEMOGLOBIN [id number] 00:00:00 Test Item Value Reference Range Interpretation Comments HEMOGLOBIN A1c (test code = 46285) 6.2 % HEMOGLOBIN [id number] 00:00:00 Test Item Value Reference Range Interpretation Comments HEMOGLOBIN A1c (test code = 06330) 6.2 % HEMOGLOBIN [id number] 00:00:00 Test Item Value Reference Range Interpretation Comments HEMOGLOBIN A1c (test code = 20189) 6.2 % [id number] 00:00:00 Test Item Value Reference Range Interpretation Comments TSH, THIRD GENERATION (test code 0.988 UIU/ML = 2821) [id number] 00:00:00 Test Item Value Reference Range Interpretation Comments TSH, THIRD GENERATION (test code 0.988 UIU/ML = 2821) [id number] 00:00:00 Test Item Value Reference Range Interpretation Comments TSH, THIRD GENERATION (test code 0.988 UIU/ML = 2821) COMPREHENSIVE METABOLIC [id number] 00:00:00 Test Item Value Reference Range Interpretation Comments GLUCOSE (test code = 2217) 109 MG/DL BUN (test code = 2208) 25 MG/DL CREATININE (test code = 2214) 0.78 MG/DL eGFR AMER. (test code 98 ML/MIN/1.73 = 84927) eGFR NON- AMER. (test 84 ML/MIN/1.73 code = 81613) CALC BUN/CREAT (test code = 32 RATIO [...] code = 2219) 25 U/L COMPREHENSIVE METABOLIC [id number] 00:00:00 Test Item Value Reference Range Interpretation Comments GLUCOSE (test code = 2217) 109 MG/DL BUN (test code = 2208) 25 MG/DL CREATININE (test code = 2214) 0.78 MG/DL eGFR AMER. (test code 98 ML/MIN/1.73 = 89556) eGFR NON- AMER. (test 84 ML/MIN/1.73 code = 66628) CALC BUN/CREAT (test code = 32 RATIO [...] (test code = 2219) 25 U/L LIPID [id number] 00:00:00 Test Item Value Reference Range Interpretation Comments CHOLESTEROL (test code = 2210) 295 MG/DL TRIGLYCERIDES (test code = 2232) 218 MG/DL HDL CHOLESTEROL (test code = 2220) 46 MG/DL CALC LDL CHOL (test code = 2237) 205 MG/DL RISK RATIO LDL/HDL (test code = 4.47 RATIO 2238) LIPID [id number] 00:00:00 Test Item Value Reference Range Interpretation Comments CHOLESTEROL (test code = 2210) 295 MG/DL TRIGLYCERIDES (test code = 2232) 218 MG/DL HDL CHOLESTEROL (test code = 2220) 46 MG/DL CALC LDL CHOL (test code = 2237) 205 MG/DL RISK RATIO LDL/HDL (test code = 4.47 RATIO 2238) HEMOGLOBIN [id number] 00:00:00 Test Item Value Reference Range Interpretation Comments HEMOGLOBIN A1c (test code = 11563) 7.0 % HEMOGLOBIN [id number] 00:00:00 Test Item Value Reference Range Interpretation Comments HEMOGLOBIN A1c (test code = 96309) 7.0 % HEMOGLOBIN [id number] 00:00:00 Test Item Value Reference Range Interpretation Comments HEMOGLOBIN A1c (test code = 09197) 7.0 % [id number] 00:00:00 Test Item Value Reference Range Interpretation Comments TSH, THIRD GENERATION (test code 0.565 UIU/ML = 2821) [id number] 00:00:00 Test Item Value Reference Range Interpretation Comments TSH, THIRD GENERATION (test code 0.565 UIU/ML = 2821) [id number] 00:00:00 Test Item Value Reference Range Interpretation Comments TSH, THIRD GENERATION (test code 0.565 UIU/ML = 2821) COMPREHENSIVE METABOLIC [id number] 00:00:00 Test Item Value Reference Range Interpretation Comments GLUCOSE (test code = 2217) 109 MG/DL BUN (test code = 2208) 25 MG/DL CREATININE (test code = 2214) 0.78 MG/DL eGFR AMER. (test code 98 ML/MIN/1.73 = 24082) eGFR NON- AMER. (test 84 ML/MIN/1.73 code = 54575) CALC BUN/CREAT (test code = 32 RATIO [...] code = 2219) 25 U/L COMPREHENSIVE METABOLIC [id number] 00:00:00 Test Item Value Reference Range Interpretation Comments GLUCOSE (test code = 2217) 109 MG/DL BUN (test code = 2208) 25 MG/DL CREATININE (test code = 2214) 0.78 MG/DL eGFR AMER. (test code 98 ML/MIN/1.73 = 32280) eGFR NON- AMER. (test 84 ML/MIN/1.73 code = 59855) CALC BUN/CREAT (test code = 32 RATIO [...] (test code = 2219) 25 U/L LIPID [id number] 00:00:00 Test Item Value Reference Range Interpretation Comments CHOLESTEROL (test code = 2210) 295 MG/DL TRIGLYCERIDES (test code = 2232) 218 MG/DL HDL CHOLESTEROL (test code = 2220) 46 MG/DL CALC LDL CHOL (test code = 2237) 205 MG/DL RISK RATIO LDL/HDL (test code = 4.47 RATIO 2238) LIPID [id number] 00:00:00 Test Item Value Reference Range Interpretation Comments CHOLESTEROL (test code = 2210) 295 MG/DL TRIGLYCERIDES (test code = 2232) 218 MG/DL HDL CHOLESTEROL (test code = 2220) 46 MG/DL CALC LDL CHOL (test code = 2237) 205 MG/DL RISK RATIO LDL/HDL (test code = 4.47 RATIO 2238) HEMOGLOBIN [id number] 00:00:00 Test Item Value Reference Range Interpretation Comments HEMOGLOBIN A1c (test code = 30186) 7.0 % HEMOGLOBIN [id number] 00:00:00 Test Item Value Reference Range Interpretation Comments HEMOGLOBIN A1c (test code = 60712) 7.0 % HEMOGLOBIN [id number] 00:00:00 Test Item Value Reference Range Interpretation Comments HEMOGLOBIN A1c (test code = 80122) 7.0 % [id number] 00:00:00 Test Item Value Reference Range Interpretation Comments TSH, THIRD GENERATION (test code 0.565 UIU/ML = 2821) [id number] 00:00:00 Test Item Value Reference Range Interpretation Comments TSH, THIRD GENERATION (test code 0.565 UIU/ML = 2821) [id number] 00:00:00 Test Item Value Reference Range Interpretation Comments TSH, THIRD GENERATION (test code 0.565 UIU/ML = 2821) COMPREHENSIVE METABOLIC [id number] 00:00:00 Test Item Value Reference Range Interpretation Comments GLUCOSE (test code = 2217) 109 MG/DL BUN (test code = 2208) 25 MG/DL CREATININE (test code = 2214) 0.78 MG/DL eGFR AMER. (test code 98 ML/MIN/1.73 = 05299) eGFR NON- AMER. (test 84 ML/MIN/1.73 code = 04354) CALC BUN/CREAT (test code = 32 RATIO [...] (test code = 2219) 25 U/L LIPID [id number] 00:00:00 Test Item Value Reference Range Interpretation Comments CHOLESTEROL (test code = 2210) 295 MG/DL TRIGLYCERIDES (test code = 2232) 218 MG/DL HDL CHOLESTEROL (test code = 2220) 46 MG/DL CALC LDL CHOL (test code = 2237) 205 MG/DL RISK RATIO LDL/HDL (test code = 4.47 RATIO 2238) HEMOGLOBIN [id number] 00:00:00 Test Item Value Reference Range Interpretation Comments HEMOGLOBIN A1c (test code = 98418) 7.0 % HEMOGLOBIN [id number] 00:00:00 Test Item Value Reference Range Interpretation Comments HEMOGLOBIN A1c (test code = 82014) 7.0 % [id number] 00:00:00 Test Item Value Reference Range Interpretation Comments TSH, THIRD GENERATION (test code 0.565 UIU/ML = 2821) [id number] 00:00:00 Test Item Value Reference Range Interpretation Comments TSH, THIRD GENERATION (test code 0.565 UIU/ML = 2821) COMPREHENSIVE METABOLIC [id number] 00:00:00 Test Item Value Reference Range Interpretation Comments GLUCOSE (test code = 2217) 109 MG/DL BUN (test code = 2208) 25 MG/DL CREATININE (test code = 2214) 0.78 MG/DL eGFR AMER. (test code 98 ML/MIN/1.73 = 75105) eGFR NON- AMER. (test 84 ML/MIN/1.73 code = 78339) CALC BUN/CREAT (test code = 32 RATIO [...] code = 2219) 25 U/L COMPREHENSIVE METABOLIC [id number] 00:00:00 Test Item Value Reference Range Interpretation Comments GLUCOSE (test code = 2217) 109 MG/DL BUN (test code = 2208) 25 MG/DL CREATININE (test code = 2214) 0.78 MG/DL eGFR AMER. (test code 98 ML/MIN/1.73 = 33380) eGFR NON- AMER. (test 84 ML/MIN/1.73 code = 90979) CALC BUN/CREAT (test code = 32 RATIO [...] (test code = 2219) 25 U/L LIPID [id number] 00:00:00 Test Item Value Reference Range Interpretation Comments CHOLESTEROL (test code = 2210) 295 MG/DL TRIGLYCERIDES (test code = 2232) 218 MG/DL HDL CHOLESTEROL (test code = 2220) 46 MG/DL CALC LDL CHOL (test code = 2237) 205 MG/DL RISK RATIO LDL/HDL (test code = 4.47 RATIO 2238) LIPID [id number] 00:00:00 Test Item Value Reference Range Interpretation Comments CHOLESTEROL (test code = 2210) 295 MG/DL TRIGLYCERIDES (test code = 2232) 218 MG/DL HDL CHOLESTEROL (test code = 2220) 46 MG/DL CALC LDL CHOL (test code = 2237) 205 MG/DL RISK RATIO LDL/HDL (test code = 4.47 RATIO 2238) HEMOGLOBIN [id number] 00:00:00 Test Item Value Reference Range Interpretation Comments HEMOGLOBIN A1c (test code = 90720) 7.0 % HEMOGLOBIN [id number] 00:00:00 Test Item Value Reference Range Interpretation Comments HEMOGLOBIN A1c (test code = 77691) 7.0 % HEMOGLOBIN [id number] 00:00:00 Test Item Value Reference Range Interpretation Comments HEMOGLOBIN A1c (test code = 07497) 7.0 % [id number] 00:00:00 Test Item Value Reference Range Interpretation Comments TSH, THIRD GENERATION (test code 0.565 UIU/ML = 2821) [id number] 00:00:00 Test Item Value Reference Range Interpretation Comments TSH, THIRD GENERATION (test code 0.565 UIU/ML = 2821) [id number] 00:00:00 Test Item Value Reference Range Interpretation Comments TSH, THIRD GENERATION (test code 0.565 UIU/ML = 2821) [id number] 00:00:00 Test Item Value Reference Range Interpretation Comments TSH, THIRD GENERATION (test code 0.379 UIU/ML = 2821) [id number] 00:00:00 Test Item Value Reference Range Interpretation Comments TSH, THIRD GENERATION (test code 0.379 UIU/ML = 2821) [id number] 00:00:00 Test Item Value Reference Range Interpretation Comments TSH, THIRD GENERATION (test code 0.379 UIU/ML = 2821) [id number] 00:00:00 Test Item Value Reference Range Interpretation Comments TSH, THIRD GENERATION (test code 0.379 UIU/ML = 2821) [id number] 00:00:00 Test Item Value Reference Range Interpretation Comments TSH, THIRD GENERATION (test code 0.379 UIU/ML = 2821) [id number] 00:00:00 Test Item Value Reference Range Interpretation Comments TSH, THIRD GENERATION (test code 0.379 UIU/ML = 2821) [id number] 00:00:00 Test Item Value Reference Range Interpretation Comments TSH, THIRD GENERATION (test code 0.379 UIU/ML = 2821) [id number] 00:00:00 Test Item Value Reference Range Interpretation Comments TSH, THIRD GENERATION (test code 0.379 UIU/ML = 2821) [id number] 00:00:00 Test Item Value Reference Range Interpretation Comments TSH, THIRD GENERATION (test code 0.379 UIU/ML = 2821) [id number] 00:00:00 Test Item Value Reference Range Interpretation Comments TSH, THIRD GENERATION (test code 0.379 UIU/ML = 2821) [id number] 00:00:00 Test Item Value Reference Range Interpretation Comments TSH, THIRD GENERATION (test code 0.379 UIU/ML = 2821) CULTURE, [id number] 00:00:00 Test Item Value Reference Range Interpretation Comments CULTURE, URINE (test SPECIMEN NUMBER: code = 96899) [id number] CULTURE, [id number] 00:00:00 Test Item Value Reference Range Interpretation Comments CULTURE, URINE (test SPECIMEN NUMBER: code = 37800) [id number] CULTURE, [id number] 00:00:00 Test Item Value Reference Range Interpretation Comments CULTURE, URINE (test SPECIMEN NUMBER: code = 74218) [id number] CULTURE, [id number] 00:00:00 Test Item Value Reference Range Interpretation Comments CULTURE, URINE (test SPECIMEN NUMBER: code = 29129) [id number] CULTURE, [id number] 00:00:00 Test Item Value Reference Range Interpretation Comments CULTURE, URINE (test SPECIMEN NUMBER: code = 52518) [id number] CULTURE, [id number] 00:00:00 Test Item Value Reference Range Interpretation Comments CULTURE, URINE (test SPECIMEN NUMBER: code = 82221) [id number] CULTURE, [id number] 00:00:00 Test Item Value Reference Range Interpretation Comments CULTURE, URINE (test SPECIMEN NUMBER: code = 13492) [id number] COMPREHENSIVE METABOLIC [id number] 00:00:00 Test Item Value Reference Range Interpretation Comments GLUCOSE (test code = 2217) 128 MG/DL BUN (test code = 2208) 26 MG/DL CREATININE (test code = 2214) 0.92 MG/DL eGFR AMER. (test code 81 ML/MIN/1.73 = 94004) eGFR NON- AMER. (test 70 ML/MIN/1.73 code = 47388) CALC BUN/CREAT (test code = 28 RATIO [...] code = 2219) 29 U/L COMPREHENSIVE METABOLIC [id number] 00:00:00 Test Item Value Reference Range Interpretation Comments GLUCOSE (test code = 2217) 128 MG/DL BUN (test code = 2208) 26 MG/DL CREATININE (test code = 2214) 0.92 MG/DL eGFR AMER. (test code 81 ML/MIN/1.73 = 04772) eGFR NON- AMER. (test 70 ML/MIN/1.73 code = 90202) CALC BUN/CREAT (test code = 28 RATIO [...] code = 2219) 29 U/L ACUTE HEPATITIS [id number] 00:00:00 Test Item Value Reference Range Interpretation Comments HEPATITIS A IgM (test code = NON-REACTIVE 41354) HEPATITIS B CORE IgM (test code NON-REACTIVE = 4644) HEPATITIS B SURF AG (test code = NON-REACTIVE 2739) HEPATITIS C ANTIBODY (test code NON-REACTIVE = 4675) INTERPRETATION HEPATITIS A: (NOTE) (test code = 2552) INTERPRETATION HEPATITIS B: (NOTE) (test code = 61592) INTERPRETATION HEPATITIS C: (NOTE) (test code = 48217) ACUTE HEPATITIS [id number] 00:00:00 Test Item Value Reference Range Interpretation Comments HEPATITIS A IgM (test code = NON-REACTIVE 27437) HEPATITIS B CORE IgM (test code NON-REACTIVE = 4644) HEPATITIS B SURF AG (test code = NON-REACTIVE 2739) HEPATITIS C ANTIBODY (test code NON-REACTIVE = 4675) INTERPRETATION HEPATITIS A: (NOTE) (test code = 2552) INTERPRETATION HEPATITIS B: (NOTE) (test code = 83014) INTERPRETATION HEPATITIS C: (NOTE) (test code = 35493) [id number] 00:00:00 Test Item Value Reference Range Interpretation Comments AMYLASE (test code = 2205) 32 U/L [id number] 00:00:00 Test Item Value Reference Range Interpretation Comments AMYLASE (test code = 2205) 32 U/L [id number] 00:00:00 Test Item Value Reference Range Interpretation Comments LIPASE (test code = 2058) 22 U/L [id number] 00:00:00 Test Item Value Reference Range Interpretation Comments LIPASE (test code = 205) 22 U/L [id number] 00:00:00 Test Item Value Reference Range Interpretation Comments LIPASE (test code = 2058) 22 U/L COMPREHENSIVE METABOLIC [id number] 00:00:00 Test Item Value Reference Range Interpretation Comments GLUCOSE (test code = 2217) 128 MG/DL BUN (test code = 2208) 26 MG/DL CREATININE (test code = 2214) 0.92 MG/DL eGFR AMER. (test code 81 ML/MIN/1.73 = 79490) eGFR NON- AMER. (test 70 ML/MIN/1.73 code = 43075) CALC BUN/CREAT (test code = 28 RATIO [...] code = 2219) 29 U/L COMPREHENSIVE METABOLIC [id number] 00:00:00 Test Item Value Reference Range Interpretation Comments GLUCOSE (test code = 2217) 128 MG/DL BUN (test code = 2208) 26 MG/DL CREATININE (test code = 2214) 0.92 MG/DL eGFR AMER. (test code 81 ML/MIN/1.73 = 38376) eGFR NON- AMER. (test 70 ML/MIN/1.73 code = 09235) CALC BUN/CREAT (test code = 28 RATIO [...] code = 2219) 29 U/L ACUTE HEPATITIS [id number] 00:00:00 Test Item Value Reference Range Interpretation Comments HEPATITIS A IgM (test code = NON-REACTIVE 23506) HEPATITIS B CORE IgM (test code NON-REACTIVE = 4644) HEPATITIS B SURF AG (test code = NON-REACTIVE 2739) HEPATITIS C ANTIBODY (test code NON-REACTIVE = 4675) INTERPRETATION HEPATITIS A: (NOTE) (test code = 2552) INTERPRETATION HEPATITIS B: (NOTE) (test code = 49056) INTERPRETATION HEPATITIS C: (NOTE) (test code = 88263) ACUTE HEPATITIS [id number] 00:00:00 Test Item Value Reference Range Interpretation Comments HEPATITIS A IgM (test code = NON-REACTIVE 48059) HEPATITIS B CORE IgM (test code NON-REACTIVE = 4644) HEPATITIS B SURF AG (test code = NON-REACTIVE 2739) HEPATITIS C ANTIBODY (test code NON-REACTIVE = 4675) INTERPRETATION HEPATITIS A: (NOTE) (test code = 2552) INTERPRETATION HEPATITIS B: (NOTE) (test code = 67437) INTERPRETATION HEPATITIS C: (NOTE) (test code = 03594) [id number] 00:00:00 Test Item Value Reference Range Interpretation Comments AMYLASE (test code = 2205) 32 U/L [id number] 00:00:00 Test Item Value Reference Range Interpretation Comments AMYLASE (test code = 2205) 32 U/L [id number] 00:00:00 Test Item Value Reference Range Interpretation Comments LIPASE (test code = 2058) 22 U/L [id number] 00:00:00 Test Item Value Reference Range Interpretation Comments LIPASE (test code = 2058) 22 U/L [id number] 00:00:00 Test Item Value Reference Range Interpretation Comments LIPASE (test code = 2058) 22 U/L COMPREHENSIVE METABOLIC [id number] 00:00:00 Test Item Value Reference Range Interpretation Comments GLUCOSE (test code = 2217) 128 MG/DL BUN (test code = 2208) 26 MG/DL CREATININE (test code = 2214) 0.92 MG/DL eGFR AMER. (test code 81 ML/MIN/1.73 = 84283) eGFR NON- AMER. (test 70 ML/MIN/1.73 code = 12178) CALC BUN/CREAT (test code = 28 RATIO [...] code = 2219) 29 U/L ACUTE HEPATITIS [id number] 00:00:00 Test Item Value Reference Range Interpretation Comments HEPATITIS A IgM (test code = NON-REACTIVE 19233) HEPATITIS B CORE IgM (test code NON-REACTIVE = 8680) HEPATITIS B SURF AG (test code = NON-REACTIVE 8445) HEPATITIS C ANTIBODY (test code NON-REACTIVE = 4675) INTERPRETATION HEPATITIS A: (NOTE) (test code = 2552) INTERPRETATION HEPATITIS B: (NOTE) (test code = 62072) INTERPRETATION HEPATITIS C: (NOTE) (test code = 32796) [id number] 00:00:00 Test Item Value Reference Range Interpretation Comments AMYLASE (test code = 2205) 32 U/L [id number] 00:00:00 Test Item Value Reference Range Interpretation Comments LIPASE (test code = 2058) 22 U/L [id number] 00:00:00 Test Item Value Reference Range Interpretation Comments LIPASE (test code = 2058) 22 U/L COMPREHENSIVE METABOLIC [id number] 00:00:00 Test Item Value Reference Range Interpretation Comments GLUCOSE (test code = 2217) 128 MG/DL BUN (test code = 2208) 26 MG/DL CREATININE (test code = 2214) 0.92 MG/DL eGFR AMER. (test code 81 ML/MIN/1.73 = 79330) eGFR NON- AMER. (test 70 ML/MIN/1.73 code = 77383) CALC BUN/CREAT (test code = 28 RATIO [...] code = 2219) 29 U/L COMPREHENSIVE METABOLIC [id number] 00:00:00 Test Item Value Reference Range Interpretation Comments GLUCOSE (test code = 2217) 128 MG/DL BUN (test code = 2208) 26 MG/DL CREATININE (test code = 2214) 0.92 MG/DL eGFR AMER. (test code 81 ML/MIN/1.73 = 87732) eGFR NON- AMER. (test 70 ML/MIN/1.73 code = 64901) CALC BUN/CREAT (test code = 28 RATIO [...] code = 2219) 29 U/L ACUTE HEPATITIS [id number] 00:00:00 Test Item Value Reference Range Interpretation Comments HEPATITIS A IgM (test code = NON-REACTIVE 96290) HEPATITIS B CORE IgM (test code NON-REACTIVE = 4644) HEPATITIS B SURF AG (test code = NON-REACTIVE 2739) HEPATITIS C ANTIBODY (test code NON-REACTIVE = 4675) INTERPRETATION HEPATITIS A: (NOTE) (test code = 2552) INTERPRETATION HEPATITIS B: (NOTE) (test code = 97682) INTERPRETATION HEPATITIS C: (NOTE) (test code = 00305) ACUTE HEPATITIS [id number] 00:00:00 Test Item Value Reference Range Interpretation Comments HEPATITIS A IgM (test code = NON-REACTIVE 28784) HEPATITIS B CORE IgM (test code NON-REACTIVE = 4644) HEPATITIS B SURF AG (test code = NON-REACTIVE 2739) HEPATITIS C ANTIBODY (test code NON-REACTIVE = 4675) INTERPRETATION HEPATITIS A: (NOTE) (test code = 2552) INTERPRETATION HEPATITIS B: (NOTE) (test code = 93705) INTERPRETATION HEPATITIS C: (NOTE) (test code = 65959) [id number] 00:00:00 Test Item Value Reference Range Interpretation Comments AMYLASE (test code = 2205) 32 U/L [id number] 00:00:00 Test Item Value Reference Range Interpretation Comments AMYLASE (test code = 2205) 32 U/L [id number] 00:00:00 Test Item Value Reference Range Interpretation Comments LIPASE (test code = 2058) 22 U/L [id number] 00:00:00 Test Item Value Reference Range Interpretation Comments LIPASE (test code = 2058) 22 U/L [id number] 00:00:00 Test Item Value Reference Range Interpretation Comments LIPASE (test code = 2058) 22 U/L [id number] 00:00:00 Test Item Value Reference Range Interpretation Comments TSH, THIRD GENERATION (test code 4.890 UIU/ML = 2821) [id number] 00:00:00 Test Item Value Reference Range Interpretation Comments TSH, THIRD GENERATION (test code 4.890 UIU/ML = 2821) [id number] 00:00:00 Test Item Value Reference Range Interpretation Comments TSH, THIRD GENERATION (test code 4.890 UIU/ML = 2821) COMPREHENSIVE METABOLIC [id number] 00:00:00 Test Item Value Reference Range Interpretation Comments GLUCOSE (test code = 2217) 121 MG/DL BUN (test code = 2208) 40 MG/DL CREATININE (test code = 2214) 1.48 MG/DL eGFR AMER. (test code 45 ML/MIN/1.73 = 99822) eGFR NON- AMER. (test 39 ML/MIN/1.73 code = 97481) CALC BUN/CREAT (test code = 27 RATIO [...] code = 2219) 20 U/L COMPREHENSIVE METABOLIC [id number] 00:00:00 Test Item Value Reference Range Interpretation Comments GLUCOSE (test code = 2217) 121 MG/DL BUN (test code = 2208) 40 MG/DL CREATININE (test code = 2214) 1.48 MG/DL eGFR AMER. (test code 45 ML/MIN/1.73 = 53823) eGFR NON- AMER. (test 39 ML/MIN/1.73 code = 32750) CALC BUN/CREAT (test code = 27 RATIO [...] ALT (test code = 2219) 20 U/L [id number] 00:00:00 Test Item Value Reference Range Interpretation Comments TSH, THIRD GENERATION (test code 4.890 UIU/ML = 2821) [id number] 00:00:00 Test Item Value Reference Range Interpretation Comments TSH, THIRD GENERATION (test code 4.890 UIU/ML = 2821) [id number] 00:00:00 Test Item Value Reference Range Interpretation Comments TSH, THIRD GENERATION (test code 4.890 UIU/ML = 2821) COMPREHENSIVE METABOLIC [id number] 00:00:00 Test Item Value Reference Range Interpretation Comments GLUCOSE (test code = 2217) 121 MG/DL BUN (test code = 2208) 40 MG/DL CREATININE (test code = 2214) 1.48 MG/DL eGFR AMER. (test code 45 ML/MIN/1.73 = 64230) eGFR NON- AMER. (test 39 ML/MIN/1.73 code = 75744) CALC BUN/CREAT (test code = 27 RATIO [...] code = 2219) 20 U/L COMPREHENSIVE METABOLIC [id number] 00:00:00 Test Item Value Reference Range Interpretation Comments GLUCOSE (test code = 2217) 121 MG/DL BUN (test code = 2208) 40 MG/DL CREATININE (test code = 2214) 1.48 MG/DL eGFR AMER. (test code 45 ML/MIN/1.73 = 17543) eGFR NON- AMER. (test 39 ML/MIN/1.73 code = 68328) CALC BUN/CREAT (test code = 27 RATIO [...] ALT (test code = 2219) 20 U/L [id number] 00:00:00 Test Item Value Reference Range Interpretation Comments TSH, THIRD GENERATION (test code 4.890 UIU/ML = 2821) [id number] 00:00:00 Test Item Value Reference Range Interpretation Comments TSH, THIRD GENERATION (test code 4.890 UIU/ML = 2821) COMPREHENSIVE METABOLIC [id number] 00:00:00 Test Item Value Reference Range Interpretation Comments GLUCOSE (test code = 2217) 121 MG/DL BUN (test code = 2208) 40 MG/DL CREATININE (test code = 2214) 1.48 MG/DL eGFR AMER. (test code 45 ML/MIN/1.73 = 45831) eGFR NON- AMER. (test 39 ML/MIN/1.73 code = 60861) CALC BUN/CREAT (test code = 27 RATIO [...] ALT (test code = 2219) 20 U/L [id number] 00:00:00 Test Item Value Reference Range Interpretation Comments TSH, THIRD GENERATION (test code 4.890 UIU/ML = 2821) [id number] 00:00:00 Test Item Value Reference Range Interpretation Comments TSH, THIRD GENERATION (test code 4.890 UIU/ML = 2821) [id number] 00:00:00 Test Item Value Reference Range Interpretation Comments TSH, THIRD GENERATION (test code 4.890 UIU/ML = 2821) COMPREHENSIVE METABOLIC [id number] 00:00:00 Test Item Value Reference Range Interpretation Comments GLUCOSE (test code = 2217) 121 MG/DL BUN (test code = 2208) 40 MG/DL CREATININE (test code = 2214) 1.48 MG/DL eGFR AMER. (test code 45 ML/MIN/1.73 = 75975) eGFR NON- AMER. (test 39 ML/MIN/1.73 code = 53413) CALC BUN/CREAT (test code = 27 RATIO [...] code = 2219) 20 U/L COMPREHENSIVE METABOLIC [id number] 00:00:00 Test Item Value Reference Range Interpretation Comments GLUCOSE (test code = 2217) 121 MG/DL BUN (test code = 2208) 40 MG/DL CREATININE (test code = 2214) 1.48 MG/DL eGFR AMER. (test code 45 ML/MIN/1.73 = 07991) eGFR NON- AMER. (test 39 ML/MIN/1.73 code = 58705) CALC BUN/CREAT (test code = 27 RATIO [...] (test code = 2219) 20 U/L LIPID [id number] 00:00:00 Test Item Value Reference Range Interpretation Comments CHOLESTEROL (test code = 2210) 261 MG/DL TRIGLYCERIDES (test code = 2232) 165 MG/DL HDL CHOLESTEROL (test code = 2220) 58 MG/DL CALC LDL CHOL (test code = 2237) 170 MG/DL RISK RATIO LDL/HDL (test code = 2.93 RATIO 2238) LIPID [id number] 00:00:00 Test Item Value Reference Range Interpretation Comments CHOLESTEROL (test code = 2210) 261 MG/DL TRIGLYCERIDES (test code = 2232) 165 MG/DL HDL CHOLESTEROL (test code = 2220) 58 MG/DL CALC LDL CHOL (test code = 2237) 170 MG/DL RISK RATIO LDL/HDL (test code = 2.93 RATIO 2238) CBC W/AUTO [id number] 00:00:00 Test Item Value Reference Range Interpretation [...] code = 1015) 378 K/UL CBC W/AUTO [id number] 00:00:00 Test Item Value Reference Range Interpretation [...] code = 1015) 378 K/UL CBC W/AUTO [id number] 00:00:00 Test Item Value Reference Range Interpretation [...] (test code = 1015) 378 K/UL HEMOGLOBIN [id number] 00:00:00 Test Item Value Reference Range Interpretation Comments HEMOGLOBIN A1c (test code = 14383) 6.4 % HEMOGLOBIN [id number] 00:00:00 Test Item Value Reference Range Interpretation Comments HEMOGLOBIN A1c (test code = 05203) 6.4 % HEMOGLOBIN [id number] 00:00:00 Test Item Value Reference Range Interpretation Comments HEMOGLOBIN A1c (test code = 07241) 6.4 % [id number] 00:00:00 Test Item Value Reference Range Interpretation Comments TSH (test code = 2821) 5.290 UIU/ML [id number] 00:00:00 Test Item Value Reference Range Interpretation Comments TSH (test code = 2821) 5.290 UIU/ML [id number] 00:00:00 Test Item Value Reference Range Interpretation Comments TSH (test code = 2821) 5.290 UIU/ML LIPID [id number] 00:00:00 Test Item Value Reference Range Interpretation Comments CHOLESTEROL (test code = 2210) 261 MG/DL TRIGLYCERIDES (test code = 2232) 165 MG/DL HDL CHOLESTEROL (test code = 2220) 58 MG/DL CALC LDL CHOL (test code = 2237) 170 MG/DL RISK RATIO LDL/HDL (test code = 2.93 RATIO 2238) LIPID [id number] 00:00:00 Test Item Value Reference Range Interpretation Comments CHOLESTEROL (test code = 2210) 261 MG/DL TRIGLYCERIDES (test code = 2232) 165 MG/DL HDL CHOLESTEROL (test code = 2220) 58 MG/DL CALC LDL CHOL (test code = 2237) 170 MG/DL RISK RATIO LDL/HDL (test code = 2.93 RATIO 2238) CBC W/AUTO [id number] 00:00:00 Test Item Value Reference Range Interpretation [...] code = 1015) 378 K/UL CBC W/AUTO [id number] 00:00:00 Test Item Value Reference Range Interpretation [...] code = 1015) 378 K/UL CBC W/AUTO [id number] 00:00:00 Test Item Value Reference Range Interpretation [...] (test code = 1015) 378 K/UL HEMOGLOBIN [id number] 00:00:00 Test Item Value Reference Range Interpretation Comments HEMOGLOBIN A1c (test code = 29262) 6.4 % HEMOGLOBIN [id number] 00:00:00 Test Item Value Reference Range Interpretation Comments HEMOGLOBIN A1c (test code = 63045) 6.4 % HEMOGLOBIN [id number] 00:00:00 Test Item Value Reference Range Interpretation Comments HEMOGLOBIN A1c (test code = 18336) 6.4 % [id number] 00:00:00 Test Item Value Reference Range Interpretation Comments TSH (test code = 2821) 5.290 UIU/ML [id number] 00:00:00 Test Item Value Reference Range Interpretation Comments TSH (test code = 2821) 5.290 UIU/ML [id number] 00:00:00 Test Item Value Reference Range Interpretation Comments TSH (test code = 2821) 5.290 UIU/ML LIPID [id number] 00:00:00 Test Item Value Reference Range Interpretation Comments CHOLESTEROL (test code = 2210) 261 MG/DL TRIGLYCERIDES (test code = 2232) 165 MG/DL HDL CHOLESTEROL (test code = 2220) 58 MG/DL CALC LDL CHOL (test code = 2237) 170 MG/DL RISK RATIO LDL/HDL (test code = 2.93 RATIO 2238) CBC W/AUTO [id number] 00:00:00 Test Item Value Reference Range Interpretation [...] code = 1015) 378 K/UL CBC W/AUTO [id number] 00:00:00 Test Item Value Reference Range Interpretation [...] (test code = 1015) 378 K/UL HEMOGLOBIN [id number] 00:00:00 Test Item Value Reference Range Interpretation Comments HEMOGLOBIN A1c (test code = 64782) 6.4 % HEMOGLOBIN [id number] 00:00:00 Test Item Value Reference Range Interpretation Comments HEMOGLOBIN A1c (test code = 96909) 6.4 % [id number] 00:00:00 Test Item Value Reference Range Interpretation Comments TSH (test code = 2821) 5.290 UIU/ML [id number] 00:00:00 Test Item Value Reference Range Interpretation Comments TSH (test code = 2821) 5.290 UIU/ML LIPID [id number] 00:00:00 Test Item Value Reference Range Interpretation Comments CHOLESTEROL (test code = 2210) 261 MG/DL TRIGLYCERIDES (test code = 2232) 165 MG/DL HDL CHOLESTEROL (test code = 2220) 58 MG/DL CALC LDL CHOL (test code = 2237) 170 MG/DL RISK RATIO LDL/HDL (test code = 2.93 RATIO 2238) LIPID [id number] 00:00:00 Test Item Value Reference Range Interpretation Comments CHOLESTEROL (test code = 2210) 261 MG/DL TRIGLYCERIDES (test code = 2232) 165 MG/DL HDL CHOLESTEROL (test code = 2220) 58 MG/DL CALC LDL CHOL (test code = 2237) 170 MG/DL RISK RATIO LDL/HDL (test code = 2.93 RATIO 2238) CBC W/AUTO [id number] 00:00:00 Test Item Value Reference Range Interpretation [...] code = 1015) 378 K/UL CBC W/AUTO [id number] 00:00:00 Test Item Value Reference Range Interpretation [...] code = 1015) 378 K/UL CBC W/AUTO [id number] 00:00:00 Test Item Value Reference Range Interpretation [...] (test code = 1015) 378 K/UL HEMOGLOBIN [id number] 00:00:00 Test Item Value Reference Range Interpretation Comments HEMOGLOBIN A1c (test code = 00794) 6.4 % HEMOGLOBIN [id number] 00:00:00 Test Item Value Reference Range Interpretation Comments HEMOGLOBIN A1c (test code = 39777) 6.4 % HEMOGLOBIN [id number] 00:00:00 Test Item Value Reference Range Interpretation Comments HEMOGLOBIN A1c (test code = 06773) 6.4 % [id number] 00:00:00 Test Item Value Reference Range Interpretation Comments TSH (test code = 2821) 5.290 UIU/ML [id number] 00:00:00 Test Item Value Reference Range Interpretation Comments TSH (test code = 2821) 5.290 UIU/ML [id number] 00:00:00 Test Item Value Reference Range Interpretation [...] code = 2821) 1.030 UIU/ML COMPREHENSIVE METABOLIC [id number] 00:00:00 Test Item Value Reference Range Interpretation Comments GLUCOSE (test code = 2217) 106 MG/DL BUN (test code = 2208) 23 MG/DL CREATININE (test code = 2214) 0.66 MG/DL eGFR AMER. (test code 114 ML/MIN/1.73 = 22902) eGFR NON- AMER. (test 99 ML/MIN/1.73 code = 51418) CALC BUN/CREAT (test code = 35 RATIO [...] code = 2219) 31 U/L COMPREHENSIVE METABOLIC [id number] 00:00:00 Test Item Value Reference Range Interpretation Comments GLUCOSE (test code = 2217) 106 MG/DL BUN (test code = 2208) 23 MG/DL CREATININE (test code = 2214) 0.66 MG/DL eGFR AMER. (test code 114 ML/MIN/1.73 = 83366) eGFR NON- AMER. (test 99 ML/MIN/1.73 code = 00512) CALC BUN/CREAT (test code = 35 RATIO [...] code = 2821) 0.335 UIU/ML COMPREHENSIVE METABOLIC [id number] 00:00:00 Test Item Value Reference Range Interpretation Comments GLUCOSE (test code = 2217) 106 MG/DL BUN (test code = 2208) 23 MG/DL CREATININE (test code = 2214) 0.66 MG/DL eGFR AMER. (test code 114 ML/MIN/1.73 = 20213) eGFR NON- AMER. (test 99 ML/MIN/1.73 code = 26026) CALC BUN/CREAT (test code = 35 RATIO [...] code = 2219) 31 U/L COMPREHENSIVE METABOLIC [id number] 00:00:00 Test Item Value Reference Range Interpretation Comments GLUCOSE (test code = 2217) 106 MG/DL BUN (test code = 2208) 23 MG/DL CREATININE (test code = 2214) 0.66 MG/DL eGFR AMER. (test code 114 ML/MIN/1.73 = 90798) eGFR NON- AMER. (test 99 ML/MIN/1.73 code = 08741) CALC BUN/CREAT (test code = 35 RATIO [...] code = 2821) 0.335 UIU/ML COMPREHENSIVE METABOLIC [id number] 00:00:00 Test Item Value Reference Range Interpretation Comments GLUCOSE (test code = 2217) 106 MG/DL BUN (test code = 2208) 23 MG/DL CREATININE (test code = 2214) 0.66 MG/DL eGFR AMER. (test code 114 ML/MIN/1.73 = 84556) eGFR NON- AMER. (test 99 ML/MIN/1.73 code = 07083) CALC BUN/CREAT (test code = 35 RATIO [...] code = 2821) 0.335 UIU/ML COMPREHENSIVE METABOLIC [id number] 00:00:00 Test Item Value Reference Range Interpretation Comments GLUCOSE (test code = 2217) 106 MG/DL BUN (test code = 2208) 23 MG/DL CREATININE (test code = 2214) 0.66 MG/DL eGFR AMER. (test code 114 ML/MIN/1.73 = 83645) eGFR NON- AMER. (test 99 ML/MIN/1.73 code = 46908) CALC BUN/CREAT (test code = 35 RATIO [...] code = 2219) 31 U/L COMPREHENSIVE METABOLIC [id number] 00:00:00 Test Item Value Reference Range Interpretation Comments GLUCOSE (test code = 2217) 106 MG/DL BUN (test code = 2208) 23 MG/DL CREATININE (test code = 2214) 0.66 MG/DL eGFR AMER. (test code 114 ML/MIN/1.73 = 89912) eGFR NON- AMER. (test 99 ML/MIN/1.73 code = 09121) CALC BUN/CREAT (test code = 35 RATIO [...] code = 2821) 0.335 UIU/ML COMPREHENSIVE METABOLIC [id number] 00:00:00 Test Item Value Reference Range Interpretation Comments GLUCOSE (test code = 2217) 103 MG/DL BUN (test code = 2208) 15 MG/DL CREATININE (test code = 2214) 0.77 MG/DL eGFR AMER. (test code 101 ML/MIN/1.73 = 98503) eGFR NON- AMER. (test 87 ML/MIN/1.73 code = 95331) CALC BUN/CREAT (test code = 19 RATIO [...] code = 2219) 24 U/L COMPREHENSIVE METABOLIC [id number] 00:00:00 Test Item Value Reference Range Interpretation Comments GLUCOSE (test code = 2217) 103 MG/DL BUN (test code = 2208) 15 MG/DL CREATININE (test code = 2214) 0.77 MG/DL eGFR AMER. (test code 101 ML/MIN/1.73 = 64479) eGFR NON- AMER. (test 87 ML/MIN/1.73 code = 32100) CALC BUN/CREAT (test code = 19 RATIO [...] code = 2821) 0.424 UIU/ML COMPREHENSIVE METABOLIC [id number] 00:00:00 Test Item Value Reference Range Interpretation Comments GLUCOSE (test code = 2217) 103 MG/DL BUN (test code = 2208) 15 MG/DL CREATININE (test code = 2214) 0.77 MG/DL eGFR AMER. (test code 101 ML/MIN/1.73 = 51157) eGFR NON- AMER. (test 87 ML/MIN/1.73 code = 15520) CALC BUN/CREAT (test code = 19 RATIO [...] code = 2219) 24 U/L COMPREHENSIVE METABOLIC [id number] 00:00:00 Test Item Value Reference Range Interpretation Comments GLUCOSE (test code = 2217) 103 MG/DL BUN (test code = 2208) 15 MG/DL CREATININE (test code = 2214) 0.77 MG/DL eGFR AMER. (test code 101 ML/MIN/1.73 = 27271) eGFR NON- AMER. (test 87 ML/MIN/1.73 code = 20610) CALC BUN/CREAT (test code = 19 RATIO [...] code = 2821) 0.424 UIU/ML COMPREHENSIVE METABOLIC [id number] 00:00:00 Test Item Value Reference Range Interpretation Comments GLUCOSE (test code = 2217) 103 MG/DL BUN (test code = 2208) 15 MG/DL CREATININE (test code = 2214) 0.77 MG/DL eGFR AMER. (test code 101 ML/MIN/1.73 = 93370) eGFR NON- AMER. (test 87 ML/MIN/1.73 code = 45227) CALC BUN/CREAT (test code = 19 RATIO [...] code = 2821) 0.424 UIU/ML COMPREHENSIVE METABOLIC [id number] 00:00:00 Test Item Value Reference Range Interpretation Comments GLUCOSE (test code = 2217) 103 MG/DL BUN (test code = 2208) 15 MG/DL CREATININE (test code = 2214) 0.77 MG/DL eGFR AMER. (test code 101 ML/MIN/1.73 = 74325) eGFR NON- AMER. (test 87 ML/MIN/1.73 code = 60878) CALC BUN/CREAT (test code = 19 RATIO [...] code = 2219) 24 U/L COMPREHENSIVE METABOLIC [id number] 00:00:00 Test Item Value Reference Range Interpretation Comments GLUCOSE (test code = 2217) 103 MG/DL BUN (test code = 2208) 15 MG/DL CREATININE (test code = 2214) 0.77 MG/DL eGFR AMER. (test code 101 ML/MIN/1.73 = 62187) eGFR NON- AMER. (test 87 ML/MIN/1.73 code = 92281) CALC BUN/CREAT (test code = 19 RATIO [...] (test code = 2821) 0.424 UIU/ML CULTURE, [id number] 00:00:00 Test Item Value Reference Range Interpretation Comments CULTURE, URINE (test SPECIMEN NUMBER: code = 70286) [id number] CULTURE, [id number] 00:00:00 Test Item Value Reference Range Interpretation Comments CULTURE, URINE (test SPECIMEN NUMBER: code = 22189) [id number] CULTURE, [id number] 00:00:00 Test Item Value Reference Range Interpretation Comments CULTURE, URINE (test SPECIMEN NUMBER: code = 27120) [id number] CULTURE, [id number] 00:00:00 Test Item Value Reference Range Interpretation Comments CULTURE, URINE (test SPECIMEN NUMBER: code = 72036) [id number] CULTURE, [id number] 00:00:00 Test Item Value Reference Range Interpretation Comments CULTURE, URINE (test SPECIMEN NUMBER: code = 25082) [id number] CULTURE, [id number] 00:00:00 Test Item Value Reference Range Interpretation Comments CULTURE, URINE (test SPECIMEN NUMBER: code = 20845) [id number] CULTURE, [id number] 00:00:00 Test Item Value Reference Range Interpretation Comments CULTURE, URINE (test SPECIMEN NUMBER: code = 74333) [id number] CULTURE, [id number] 00:00:00 Test Item Value Reference Range Interpretation Comments CULTURE, URINE (test SPECIMEN NUMBER: code = 08817) [id number] CULTURE, [id number] 00:00:00 Test Item Value Reference Range Interpretation Comments CULTURE, URINE (test SPECIMEN NUMBER: code = 77801) [id number] CULTURE, [id number] 00:00:00 Test Item Value Reference Range Interpretation Comments CULTURE, URINE (test SPECIMEN NUMBER: code = 21379) [id number] CULTURE, [id number] 00:00:00 Test Item Value Reference Range Interpretation Comments CULTURE, URINE (test SPECIMEN NUMBER: code = 23413) [id number] CULTURE, [id number] 00:00:00 Test Item Value Reference Range Interpretation Comments CULTURE, URINE (test SPECIMEN NUMBER: code = 97744) [id number] CULTURE, [id number] 00:00:00 Test Item Value Reference Range Interpretation Comments CULTURE, URINE (test SPECIMEN NUMBER: code = 86477) [id number] CULTURE, [id number] 00:00:00 Test Item Value Reference Range Interpretation Comments CULTURE, URINE (test SPECIMEN NUMBER: code = 91084) [id number]
[2022-04-08] MEDS ORDERED: Ringers Lactate 1,000 ML IV ONE (18:08)
[2022-04-08] MEDS ORDERED: ONDANSETRON 4 MG/2 ML VIAL ONE (18:08)
[2022-04-08 18:15] LABS: Absolute Lymphocytes (CBC) 1.6 K/uL (0.7-4.9); Hematocrit 40.1 % (36.0-45.0); Lymphocytes % 19.2 % (15.3-44.8); MCV 92.8 fL (80-100); RBC Red Blood Cell Count 4.32 M/uL (3.86-4.86)
[2022-04-08 18:32] LABS: Albumin 3.7 g/dL (3.4-5.0); Bilirubin Total 0.2 mg/dL (0.2-1.0); Potassium 3.7 mmol/L (3.5-5.1)
--- NOTE | 2022-04-08 18:45 | ER ---
Nurse's Notes [facility] Name: Jaimie Amanda Age: 61 yrs Sex: Female : 1960 Arrival Date: 04/08/2022 Time: 16:30 Bed DIS1 Private MD: Diagnosis: Vomiting Presentation: 04/08 16:51 Chief complaint: Patient states: nausea/vomiting and abd pain that began this morning. aa5 Pt denies diarrhea. Coronavirus screen: At this time, the client does not indicate any symptoms associated with coronavirus-19. Ebola Screen: Patient denies travel to an Ebola-affected area in the 21 days before illness onset. Initial Sepsis Screen: Does the patient meet any 2 criteria? No. Patient's initial sepsis screen is negative. Does the patient have a suspected source of infection? No. Patient's initial sepsis screen is negative. Risk Assessment: Do you want to hurt yourself or someone else? Patient reports no desire to harm self or others. Onset of symptoms was April 08, 2022. 16:51 Acuity: ZHEN 3 aa5 16:51 Method Of Arrival: Ambulatory aa5 Historical: - Allergies: 16:45 No Known Allergies; aa5 - PMHx: 16:44 Anxiety; Chronic Abdominal Pain; Hypertensive disorder; Hypothyroidism; low NA; NIDDM; aa5 - PSHx: 16:44 Thyroidectomy; aa5 Assessment: 18:50 Reassessment: Patient is alert, oriented x 3, equal unlabored respirations, skin aa5 warm/dry/pink. Vital Signs: 16:51 BP 151 / 92; Pulse 93; Resp 18 S; Temp 97.0(TE); Pulse Ox 96% on R/A; Weight 70.31 kg aa5 (R); Height 5 ft. 7 in. (170.18 cm) (R); 16:51 Body Mass Index 24.28 (70.31 kg, 170.18 cm) aa5 ED Course: 16:30 Patient arrived in ED. as 16:34 René Brown PA is PHCP. [facility] 16:34 Villa Byrd MD is Attending Physician. jmm 16:44 Arm band placed on. aa5 16:53 Triage completed. aa5 16:58 Initial lab(s) drawn, by me, sent to lab. Inserted saline lock: 24 gauge in right aa5 wrist, using aseptic technique. Blood collected. 18:50 No provider procedures requiring assistance completed. IV discontinued, intact, aa5 bleeding controlled, No redness/swelling at site. Pressure dressing applied. Administered Medications: 18:10 Drug: Lactated Ringers Solution 1000 ml Route: IV; Rate: 1000 bolus; Site: right wrist; aa5 18:50 Follow up: IV Status: Order to discontinue infusion; IV Intake: 500ml aa5 18:10 Drug: Zofran (Ondansetron) 4 mg Route: IVP; Site: right wrist; aa5 18:15 Follow up: Response: No adverse reaction aa5 Intake: 18:50 IV: 500ml; Total: 500ml. aa5 Outcome: 18:44 Discharge ordered by . hilton 18:50 Discharged to home ambulatory. aa5 18:50 Condition: stable 18:50 Discharge instructions given to patient, Instructed on discharge instructions, follow up and referral plans. medication usage, Demonstrated understanding of instructions, follow-up care, medications, Prescriptions given X 1. 18:53 Patient left the ED. aa5 Signatures: René Brown PA PA jmm Martinez, Amelia as Calderon, Audri, RN RN aa5
--- NOTE | 2022-04-08 18:45 | EDPHYS ---
Physician Documentation [facility] Name: Jaimie Amanda Age: 61 yrs Sex: Female : 1960 Arrival Date: 04/08/2022 Time: 16:30 Bed DIS1 Private MD: ED Physician Villa Byrd HPI: 04/08 17:02 This 61 yrs old Female presents to ER via Ambulatory with complaints of jmm Nausea/Vomiting, Abdominal Pain. 17:02 The patient presents to the emergency department with nausea, vomiting. Onset: The jmm symptoms/episode began/occurred acutely, today. Possible causes: flare up of bowel problem. The symptoms are aggravated by nothing. The symptoms are alleviated by nothing. Associated signs and symptoms: Pertinent negatives: fever. The patient has experienced similar episodes in the past, chronically. Historical: - Allergies: 16:45 No Known Allergies; aa5 - PMHx: 16:44 Anxiety; Chronic Abdominal Pain; Hypertensive disorder; Hypothyroidism; low NA; NIDDM; aa5 - PSHx: 16:44 Thyroidectomy; aa5 ROS: 17:02 Constitutional: Negative for fever, chills, and weight loss, Cardiovascular: Negative jmm for chest pain, palpitations, and edema, Respiratory: Negative for shortness of breath, cough, wheezing, and pleuritic chest pain. 17:02 Abdomen/GI: Positive for nausea and vomiting. 17:02 All other systems are negative. Exam: 17:02 Constitutional: This is a well developed, well nourished patient who is awake, alert, jmm and in no acute distress. Head/Face: atraumatic. Eyes: EOMI, no conjunctival erythema appreciated ENT: Moist Mucus Membranes Neck: Trachea midline, Supple Chest/axilla: Normal chest wall appearance and motion. Cardiovascular: Regular rate and rhythm. No edema appreciated Respiratory: Normal respirations, no respiratory distress appreciated Abdomen/GI: Non distended Back: Normal ROM Skin: General appearance color normal MS/ Extremity: Moves all extremities, no obvious deformities appreciated, no edema noted to the lower extremities Neuro: Awake and alert Psych: Behavior is normal, Mood is normal, Patient is cooperative and pleasant Vital Signs: 16:51 BP 151 / 92; Pulse 93; Resp 18 S; Temp 97.0(TE); Pulse Ox 96% on R/A; Weight 70.31 kg aa5 (R); Height 5 ft. 7 in. (170.18 cm) (R); 16:51 Body Mass Index 24.28 (70.31 kg, 170.18 cm) [facility] MDM: 17:08 Patient medically screened. [facility] 18:44 Data reviewed: vital signs, nurses notes. Consideration of Admission/Observation. [facility] Counseling: I had a detailed discussion with the patient and/or guardian regarding: the historical points, exam findings, and any diagnostic results supporting the discharge/admit diagnosis, lab results, the need for outpatient follow up, to return to the emergency department if symptoms worsen or persist or if there are any questions or concerns that arise at home. 20:35 I considered the following discharge prescriptions or medication management in the [facility] emergency department Medications were administered in the Emergency Department. See MAR. Test considered but Not performed: CT: Pain consistent with previous episodes. Labs unremarkable. ED course: Patient is feeling much better. Advised follow-up with PCP/GI and otherwise given strict return precautions. Patient understood and agrees plan of care.. 04/08 17:02 Order name: CBC with Diff; Complete Time: 18:27 [facility] 04/08 17:02 Order name: CMP; Complete Time: 18:47 [facility] 04/08 17:02 Order name: Lipase; Complete Time: 18:47 [facility] 04/08 17:02 Order name: IV Saline Lock; Complete Time: 18:00 [facility] 04/08 17:02 Order name: Labs collected and sent; Complete Time: 18:00 [facility] Administered Medications: 18:10 Drug: Lactated Ringers Solution 1000 ml Route: IV; Rate: 1000 bolus; Site: right wrist; aa5 18:50 Follow up: IV Status: Order to discontinue infusion; IV Intake: 500ml aa 18:10 Drug: Zofran (Ondansetron) 4 mg Route: IVP; Site: right wrist; aa5 18:15 Follow up: Response: No adverse reaction [facility] Disposition Summary: 04/08/22 18:44 Discharge Ordered Location: Home [facility] Condition: Stable [facility] Diagnosis - Vomiting [facility] Followup: [facility] - With: Private Physician - When: 2 - 3 days - Reason: Recheck today's complaints, Continuance of care, Re-evaluation by your physician Discharge Instructions: - Discharge Summary Sheet [facility] - Vomiting, Adult [facility] Forms: - Medication Reconciliation Form [facility] - Thank You Letter [place] - Antibiotic Education kaley - Prescription Opioid Use [facility] Prescriptions: - ondansetron 4 mg Oral tablet,disintegrating - take 1 tablet by ORAL route every 4-6 hours As needed; 20 tablet; Refills: 0, m Product Selection Permitted Signatures: Dispatcher [employer] René Goff PA PA jmm Calderon, Audri, RN RN aa5
[2022-04-08 19:07] VITALS: BP 151/92; TEMP 97; O2SAT 96
== END 2022-04-08 18:53 | disposition home or self-care (01) ==
LOC: ER 16:27
DX: R11.10 Vomiting, unspecified (principal); R10.9 Unspecified abdominal pain; I10 Essential (primary) hypertension
CPT/HCPCS: 85025; 36415; 83690; 80053; J7120; J2405

== ENCOUNTER 2022-05-01 14:45 | Emergency (ER) | payer OTHER ==
--- OUTSIDE RECORDS SUMMARY | 2022-05-01 13:30 | XMS REPORT | Continuity of Care Document ---
:1960 Author Organization [facility] t Address [address] [place] [address] Care Team Providers Name Role Phone Sharpless Primary Care Physician MATT SIMPSON Attending Clinician Unavailable MATT SIMPSON Attending Clinician Unavailable Doctor Unassigned, Valinda Attending Clinician Unavailable WALLY KRISHNAMURTHY Attending Clinician Unavailable Natacha Brewster Attending Clinician Payers Payer Name Policy Type Policy Number Effective Date Expiration Date Sarina castelan [facility] [id number] 2017 00:00:00 PLUS Problems This patient has [...] Comments Source Alcohol intake 2016-05-01 2016-05-01 Current [facility] es 00:00:00 00:00:00 non-drinker of Medical nter alcohol (finding) Sex Ass[birth year] At [birth year] [facility] 00:00:00 00:00:00 [facility] Smoking Status Start Date Stop Date Source Current every day smoker 2016-05-01 00:00:00 [facility] Medications Ordered Filled Start [...] ne 137 mcg 4-06 tablet 00:00: 00 losartan 2022-0 No 1mg [...] [facility] OXcarbazepi 2017-0 Yes 600mg Q.[id number] Take [address] ne 2-23 [id number] [facility] (TR[facility]) 10:23: 3D mouth 3 Med ical 600 MG 59 (three) Center tablet times daily. PARoxetine 2017-0 Yes 40mg QD Take [address] (PAXIL) 40 2-23 [facility] tablet 10:23: nightly. [address] 2017-0 Yes 600mg Q.25392632 Take [address] ne 2-23 [id number] [facility] (TRILEPTAL) 10:23: 3D mouth 3 Med ical 600 MG 59 (three) Center tablet times daily. PARoxetine 2017-0 Yes 40mg QD Take [address] (PAXIL) 40 2-23 [facility] tablet 10:23: nightly. [address] 2017-0 Yes 600mg Q.22787339 Take [address] ne 2-23 [id number] [facility] (TRILEPTAL) 10:23: 3D mouth 3 Med ical 600 MG 59 (three) Center tablet times daily. PARoxetine 2017-0 Yes 40mg QD Take [address] (PAXIL) 40 2-23 [facility] tablet 10:23: nightly. [address] 2017-0 Yes 600mg Q.89719499 Take [address] ne 2-23 [id number] [facility] (TRILEPTAL) 10:23: 3D mouth 3 Med ical 600 MG 59 (three) Center tablet times daily. PARoxetine 2017-0 Yes 40mg QD Take [address] (PAXIL) 40 2-23 [facility] tablet 10:23: nightly. [address] 2017-0 Yes 600mg Q.82829284 Take [address] ne 2-23 [id number] [facility] (TRILEPTAL) 10:23: 3D mouth 3 Med ical 600 MG 59 (three) Center tablet times daily. PARoxetine 2017-0 Yes 40mg QD Take [address] (PAXIL) 40 2-23 [facility] tablet 10:23: nightly. [address] 2017-0 Yes 600mg Q.75679799 Take [address] ne 2-23 [id number] [facility] (TRILEPTAL) 10:23: 3D mouth 3 Med ical 600 MG 59 (three) Center tablet times daily. PARoxetine 2017-0 Yes 40mg QD Take [address] (PAXIL) 40 2-23 [facility] tablet 10:23: nightly. [address] 2017-0 Yes 600mg Q.45271140 Take [address] ne 2-23 [id number] [facility] (TRILEPTAL) 10:23: 3D mouth 3 Med ical 600 MG 59 (three) Center tablet times daily. PARoxetine 2017-0 Yes 40mg QD Take [address] (PAXIL) 40 2-23 [facility] tablet 10:23: nightly. [address] 2017-0 Yes 600mg Q.04061124 Take [address] ne 2-23 [id number] mg [facility] (TRILEPTAL) 10:23: 3D mouth 3 Med ical 600 MG 59 (three) Center tablet times daily. PARoxetine 2017-0 Yes 40mg QD Take [address] (PAXIL) 40 2-23 [facility] tablet 10:23: nightly. [address] 2017-0 Yes 600mg Q.06743143 Take [address] ne 2-23 [id number] [facility] (TRILEPTAL) 10:23: 3D mouth 3 Med ical 600 MG 59 (three) Center tablet times daily. PARoxetine 2017-0 Yes 40mg QD Take [address] (PAXIL) 40 2-23 by [facility] tablet 10:23: nightly. [address] OXcarbazepi 2017-0 Yes 600mg Q.96060768 Take [address] ne 2-23 [id number] [facility] (TRILEPTAL) 10:23: 3D mouth 3 Med ical 600 MG 59 (three) Center tablet times daily. PARoxetine 2017-0 Yes 40mg QD Take [address] (PAXIL) 40 2-23 by [facility] tablet 10:23: nightly. [address] OXcarbazepi 2017-0 Yes 600mg Q.20214228 Take [address] ne 2-23 [id number] mg [facility] (TRILEPTAL) 10:23: 3D mouth 3 Med ical 600 MG 59 (three) Center tablet times daily. OXcarbazepi 2017-0 Yes 600mg Q.32722370 Take [address] ne 2-23 [id number] mg [facility] (TRILEPTAL) 10:23: 3D mouth 3 Med ical 600 MG 59 (three) Center tablet times daily. PARoxetine 2017-0 Yes 40mg QD Take [address] (PAXIL) 40 2-23 by [facility] tablet 10:23: nightly. Medi [facility]jel[facility] OXcarbazepi 2017-0 Yes 600mg Q.61984699 Take [address] ne 2-23 [id number] mg [facility] (TRILEPTAL) 10:23: 3D mouth 3 Med ical 600 MG 59 (three) Center tablet times daily. PARoxetine 2017-0 Yes 40mg QD Take [address] (PAXIL) 40 2-23 by [facility] MG tablet 10:23: nightly. [facility] anjelica [facility] Center OXcarbazepi 2017-0 Yes 600mg Q.97286662 Take [address] ne 2-23 [id number] mg by [facility] (TRILEPTAL) 10:23: 3D mouth 3 Med ical 600 MG 59 (three) Center tablet times daily. PARoxetine 2017-0 Yes 40mg QD Take [address] (PAXIL) 40 2-23 by [facility] MG tablet 10:23: nightly. [facility] anjelica [facility] Center PARoxetine 2017-0 Yes 40mg QD Take [address] (PAXIL) 40 2-23 by mouth [facility] MG tablet 10:23: nightly. [facility] anjelica [facility] Center OXcarbazepi 2017-0 Yes 600mg Q.97726930 Take [address] ne 2-23 [id number] mg by [facility] (TRILEPTAL) 10:23: 3D mouth 3 Med ical 600 MG 59 (three) Center tablet times daily. PARoxetine 2017-0 Yes 40mg QD Take [address] (PAXIL) 40 2-23 by [facility] tablet 10:23: nightly. [facility]i [facility] OXcarbazepi 2017-0 Yes 600mg Q.44893707 Take [address] ne 2-23 [id number] mg by [facility] (TRILEPTAL) 10:23: 3D mouth 3 Med ical 600 MG 59 (three) Center tablet times daily. PARoxetine 2017-0 Yes 40mg QD Take [address] (PAXIL) 40 2-23 [facility] tablet 10:23: nightly. [facility] [address] OXcarbazepi 2017-0 Yes 600mg Q.38764408 Take [address] ne 2-23 [id number] mg by [facility] (TRILEPTAL) 10:23: 3D mouth 3 Med ical 600 MG 59 (three) Center tablet times daily. PARoxetine 2017-0 Yes 40mg QD Take [address] (PAXIL) 40 2-23 by [facility] tablet 10:23: nightly. [facility] [address] OXcarbazepi 2017-0 Yes 600mg Q.78527464 Take [address] ne 2-23 [id number] mg [facility] (TRILEPTAL) 10:23: 3D mouth 3 Med ical 600 MG 59 (three) Center tablet times daily. PARoxetine 2017-0 Yes 40mg QD Take [address] (PAXIL) 40 2-23 by [facility] tablet 10:23: nightly. [facility] [address] OXcarbazepi 2017-0 Yes 600mg Q.12608153 Take [address] ne 2-23 [id number] mg by [facility] (TRILEPTAL) 10:23: 3D mouth 3 Med ical 600 MG 59 (three) Center tablet times daily. PARoxetine 2017-0 Yes 40mg QD Take [address] (PAXIL) 40 2-23 by [facility] tablet 10:23: nightly. [facility] [address] OXcarbazepi 2017-0 Yes 600mg Q.54984469 Take [address] ne 2-23 [id number] mg by [facility] (TRILEPTAL) 10:23: 3D mouth 3 Med ical 600 MG 59 (three) Center tablet times daily. PARoxetine 2017-0 Yes 40mg QD Take [address] (PAXIL) 40 2-23 by [facility] tablet 10:23: nightly. [facility] [address] OXcarbazepi 2017-0 Yes 600mg Q.24700756 Take [address] ne 2-23 [id number] mg by [facility] (TRILEPTAL) 10:23: 3D mouth 3 Med ical 600 MG 59 (three) Center tablet times daily. PARoxetine 2017-0 Yes 40mg QD Take [address] (PAXIL) 40 2-23 by [facility] tablet 10:23: nightly. [facility] OXcarbazepi 2017-0 Yes 600mg Q.00149867 Take [address] ne 2-23 7994471210 [facility] (TRILEPTAL) 10:23: 3D mouth [...] Goal Plan of Care Note [code = 17139-0] Goal Plan of Care Note [code = 08303-4] Goal Plan of Care Note [code = 64579-0] Goal Plan of Care Note [code = 40540-0] Goal Plan of Care Note [code = 43130-9] Goal Plan of Care Note [code = 80348-4] Goal Plan of Care Note [code = 48964-0] Goal Plan of Care Note [code = 04792-9] Goal Plan of Care Note [code = 83922-8] Goal Plan of Care Note [code = 29063-4] Goal Plan of Care Note [code = 62007-5] Goal Plan of Care Note [code = 10830-4] Goal Plan of Care Note [code = 19108-1] Goal Plan of Care Note [code = 27643-9] Goal Plan of Care Note [code = 91524-1] Goal Plan of Care Note [code = 58087-3] Goal Plan of Care Note [code = 58739-4] Goal Plan of Care Note [code = 66614-5] Goal Plan of Care Note [code = 45139-8] Goal Plan of Care Note [code = 74021-1] Goal Plan of Care Note [code = 15342-9] Goal Plan of Care Note [code = 86256-1] Goal Plan of Care Note [code = 10179-7] Goal Plan of Care Note [code = 54920-0] Goal Plan of Care Note [code = 54387-3] Goal Plan of Care Note [code = 35824-1] Goal Plan of Care Note [code = 59632-2] Goal Plan of Care Note [code = 47363-6] Goal Plan of Care Note [code = 33230-6] Goal Plan of Care Note [code = 10263-4] Goal Plan of Care Note [code = 67259-1] Goal Plan of Care Note [code = 21450-1] Goal Plan of Care Note [code = 14185-8] Goal Plan of Care Note [code = 22017-1] Goal Plan of Care Note [code = 37852-2] Goal Plan of Care Note [code = 66090-3] Goal Plan of Care Note [code = 26691-1] Goal Plan of Care Note [code = 54037-2] Goal Plan of Care Note [code = 50454-4] Goal Plan of Care Note [code = 43184-0] Goal Plan of Care Note [code = 01467-0] Goal Plan of Care Note [code = 16126-1] Goal Plan of Care Note [code = 16352-0] Goal Plan of Care Note [code = 58011-4] Goal Plan of Care Note [code = 41249-2] Goal Plan of Care Note [code = 78990-7] Goal Plan of Care Note [code = 40519-9] Goal Plan of Care Note [code = 37390-8] Goal Plan of Care Note [code = 34211-4] Goal Plan of Care Note [code = 09813-1] Goal Plan of Care Note [code = 97319-9] Goal Plan of Care Note [code = 52769-7] Goal Plan of Care Note [code = 06233-2] Goal Plan of Care Note [code = 12755-9] Goal Plan of Care Note [code = 61937-8] Goal Plan of Care Note [code = 18147-9] Goal Plan of Care Note [code = 11672-6] Goal Plan of Care Note [code = 83125-3] Goal Plan of Care Note [code = 37438-8] Goal Plan of Care Note [code = 88527-2] Goal Plan of Care Note [code = 24260-0] Goal Plan of Care Note [code = 26083-7] Goal Plan of Care Note [code = 25987-8] Goal Plan of Care Note [code = 46377-6] Goal Plan of Care Note [code = 06476-2] Goal Plan of Care Note [code = 37052-8] Goal Plan of Care Note [code = 48248-1] Goal Plan of Care Note [code = 06235-0] Goal Plan of Care Note [code = 34036-5] Goal Plan of Care Note [code = 87903-8] Goal Plan of Care Note [code = 55558-0] Goal Plan of Care Note [code = 99298-5] Goal Plan of Care Note [code = 08999-7] Goal Plan of Care Note [code = 08257-0] Goal Plan of Care Note [code = 79393-5] Goal Plan of Care Note [code = 56641-4] Goal Plan of Care Note [code = 70748-4] Goal Plan of Care Note [code = 66362-0] Goal Plan of Care Note [code = 90158-9] Goal Plan of Care Note [code = 03699-3] Goal Plan of Care Note [code = 66858-5] Goal Plan of Care Note [code = 30327-7] Goal Plan of Care Note [code = 74490-8] Goal Plan of Care Note [code = 51123-3] Goal Plan of Care Note [code = 50590-1] Goal Plan of Care Note [code = 31342-5] Goal Plan of Care Note [code = 76821-0] Goal Plan of Care Note [code = 13216-6] Goal Plan of Care Note [code = 56014-4] Goal Plan of Care Note [code = 08911-4] Goal Plan of Care Note [code = 38668-8] Goal Plan of Care Note [code = 02087-9] Goal Plan of Care Note [code = 52795-8] Goal Plan of Care Note [code = 39924-5] Goal Plan of Care Note [code = 09116-2] Goal Plan of Care Note [code = 87328-3] Goal Plan of Care Note [code = 88442-0] Goal Plan of Care Note [code = 12171-2] Goal Plan of Care Note [code = 17929-4] Goal Plan of Care Note [code = 32242-2] Goal Plan of Care Note [code = 31756-8] Goal Plan of Care Note [code = 54080-1] Goal Plan of Care Note [code = 08187-0] Goal Plan of Care Note [code = 14748-2] Goal Plan of Care Note [code = 60870-3] Goal Plan of Care Note [code = 36542-2] Goal Plan of Care Note [code = 85390-9] Goal Plan of Care Note [code = 48929-8] Goal Plan of Care Note [code = 02414-2] Goal Plan of Care Note [code = 25787-4] Goal Plan of Care Note [code = 04333-3] Goal Plan of Care Note [code = 93162-0] Goal Plan of Care Note [code = 72571-4] Goal Plan of Care Note [code = 39901-9] Goal Plan of Care Note [code = 12174-7] Goal Plan of Care Note [code = 94804-7] Goal Plan of Care Note [code = 18631-4] Goal Plan of Care Note [code = 82056-4] Goal Plan of Care Note [code = 34136-7] Goal Plan of Care Note [code = 53909-2] Goal Plan of Care Note [code = 23864-4] Goal Plan of Care Note [code = 93130-0] Goal Plan of Care Note [code = 26372-9] Goal Plan of Care Note [code = 98558-5] Goal Plan of Care Note [code = 41087-4] Goal Plan of Care Note [code = 94946-2] Goal Plan of Care Note [code = 43731-4] Goal Plan of Care Note [code = 29757-7] Goal Plan of Care Note [code = 25092-1] Goal Plan of Care Note [code = 92616-5] Goal Plan of Care Note [code = 69828-5] Goal Plan of Care Note [code = 85038-0] Goal Plan of Care Note [code = 02541-7] Goal Plan of Care Note [code = 15055-4] Goal Plan of Care Note [code = 23770-3] Goal Plan of Care Note [code = 85431-6] Goal Plan of Care Note [code = 59486-4] Goal Plan of Care Note [code = 08783-2] Goal Plan of Care Note [code = 98120-0] Goal Plan of Care Note [code = 31859-8] Goal Plan of Care Note [code = 97523-3] Goal Plan of Care Note [code = 63280-6] Goal Plan of Care Note [code = 65037-4] Goal Plan of Care Note [code = 30653-9] Goal Plan of Care Note [code = 70711-4] Goal Plan of Care Note [code = 51546-3] Goal Plan of Care Note [code = 00225-0] Goal Plan of Care Note [code = 60720-9] Goal Plan of Care Note [code = 34864-2] Goal Plan of Care Note [code = 73430-9] Goal Plan of Care Note [code = 40361-5] Goal Plan of Care Note [code = 39110-6] Goal Plan of Care Note [code = 67713-3] Goal Plan of Care Note [code = 54785-6] Goal Plan of Care Note [code = 84691-2] Goal Plan of Care Note [code = 91065-3] Goal Plan of Care Note [code = 73372-6] Goal Plan of Care Note [code = 17696-7] Goal Plan of Care Note [code = 70718-4] Goal Plan of Care Note [code = 21302-1] Goal Plan of Care Note [code = 45710-3] Goal Plan of Care Note [code = 68855-0] Goal Plan of Care Note [code = 88680-3] Goal Plan of Care Note [code = 21642-6] Goal Plan of Care Note [code = 35853-5] Goal Plan of Care Note [code = 24620-7] Goal Plan of Care Note [code = 10431-3] Goal Plan of Care Note [code = 71796-7] Goal Plan of Care Note [code = 08569-7] Goal Plan of Care Note [code = 98806-3] Goal Plan of Care Note [code = 63846-0] Goal Plan of Care Note [code = 28364-5] Goal Plan of Care Note [code = 04087-0] Goal Plan of Care Note [code = 38624-3] Goal Plan of Care Note [code = 88877-2] Goal Plan of Care Note [code = 50979-1] Goal Plan of Care Note [code = 59517-9] Goal Plan of Care Note [code = 00544-5] Goal Plan of Care Note [code = 46172-7] Goal Plan of Care Note [code = 86664-0] Goal Plan of Care Note [code = 86944-6] Goal Plan of Care Note [code = 44320-9] Goal Plan of Care Note [code = 38974-1] Goal Plan of Care Note [code = 71731-8] Goal Plan of Care Note [code = 58013-8] Goal Plan of Care Note [code = 63154-0] Goal Plan of Care Note [code = 97424-6] Goal Plan of Care Note [code = 70556-7] Goal Plan of Care Note [code = 59411-5] Goal Plan of Care Note [code = 76651-0] Goal Plan of Care Note [code = 88083-4] Goal Plan of Care Note [code = 73716-0] Goal Plan of Care Note [code = 48973-2] Goal Plan of Care Note [code = 90002-9] Goal Plan of Care Note [code = 97687-5] Goal Plan of Care Note [code = 80927-1] Goal Plan of Care Note [code = 91708-7] Goal Plan of Care Note [code = 31936-9] Goal Plan of Care Note [code = 11117-6] Goal Plan of Care Note [code = 88079-4] Goal Plan of Care Note [code = 32714-9] Goal Plan of Care Note [code = 01783-3] Goal Plan of Care Note [code = 68591-0] Goal Plan of Care Note [code = 04880-0] Goal Plan of Care Note [code = 13190-8] Goal Plan of Care Note [code = 37918-3] Goal Plan of Care Note [code = 49263-8] Goal Plan of Care Note [code = 71372-9] Encounters Start End Encounter Admission Attending Care Care Encounter Source Date/Time Date/Time Type Type Clinicians Facility Department ID 2021-06-01 Outpatient [facility] [id number] [place] 01:36:[id number] [facility] 2022-02-11 2022-02-11 Outpatient SFA SFA [id number] Cristian 09:04:48 09:04:48 1206 F Jerman 2022-02-10 2022-02-10 Outpatient SFA SFA [id number] Cristian 09:29:34 09:29:34 1205 F Jerman 2022-02-10 2022-02-10 Outpatient [id number] 7y46e9-3 00:00:00 00:00:00 Visit 4089-4cab 089-4cab-9 -1px3-y4o bf5-h1p178 897ewny98 bafa93 2022-01-10 2022-01-10 Outpatient SFA SFA [id number] 022 Cristian 09:16:14 09:16:14 1104 F Jerman 2022-01-10 2022-01-10 Outpatient [id number]- [id number] f2 accaa6-a 00:00:00 00:00:00 Visit aca9-4c83 ca9-4c83-a -j4by-gz5 7eb-bc13f3 3e4u438e6 f032f9 2021-12-19 2021-12-19 Outpatient SFA SFA [id number] 022 Cristian 16:11:31 16:11:31 1013 F Jerman 2021-12-19 2021-12-19 Outpatient [id number] [id number] 00:00:00 00:00:00 Visit s158-530m 770-441f-a -adae-62b amelia-62bace rvcgd99fc fd81af 2021-09-17 2021-09-17 Outpatient srw7fpis- [id number] h8kdgw-3 00:00:00 00:00:00 Visit 935a-4f50 35a-4f50-b -u99l-z3y 77d-c2ba85 [id number] 1264a6 2020-08-03 2020-08-03 Outpatient MATT VÁSQUEZ [facility] [id number] [facility] 10:00:00 10:00:00 MATT SIMPSON [facility] 2020-07-25 2020-07-25 Orders Doctor ABE [id number] 00:00:00 00:00:00 Only Unassigned, BK 350.1.13.10 Valinda [facility] 4.2.7.2.686 [id number] 2019-09-26 2019-09-26 Outpatient Bertin KRISHNAMURTHY [facility] [id number] [facility] 16:00:00 16:00:00 WALLY [facility] 2018-10-21 2018-10-21 [facility] [id number] 00:00:00 00:00:00 Natacha Nguyen 350.1.13.10 Ade 4.2.7.2.686 [place] [id number] [address] Results Test Description Test Time Test Comments Results Result Comments Source TSH, THIRD GENERATION 2021-06-27 05:15:49 Test Item Value Reference Range Interpretation Comme nts TSH, THIRD GENERATION (test code = 2821) 2.080 UIU/ML 0.400-4.100 HEMOGLOBIN [id number] 03:46:00 Test Item Value Reference Range Interpretation Comments HEMOGLOBIN A1c (test 6.6 % 4.2-5.6 H [employer] DIABETES code = 61149) ASSOCIATION IDELINES FOR HGB A1C: PREDIABETES/INC REASED [...] INDICATED, ALL TESTING PER FORMED ATCLINICAL PATH [facility] [place] [address] 00 LABORATORY DIRE CTOR: DIANA RUSS M.D. CLIA NUMBER [id number] [place]. [id number] LIPID [id number] 02:59:52 Test Item Value Reference Range Interpretation [...] , SEE CLIENT ANNOUNCE MENT AT [email or web address] RISK RATIO LDL/HDL 4.02 RATIO <3.22 H (test code = 2238) [id number] 00:00:00 Test Item Value Reference Range Interpretation Comments TSH, THIRD GENERATION (test code 2.080 UIU/ML = 2821) [id number] 00:00:00 Test Item Value Reference Range Interpretation Comments TSH, THIRD GENERATION (test code 2.080 UIU/ML = 2821) [id number] 00:00:00 Test Item Value Reference Range Interpretation Comments TSH, THIRD GENERATION (test code 2.080 UIU/ML = 2821) LIPID [id number] 00:00:00 Test Item Value Reference Range Interpretation Comments CHOLESTEROL (test code = 2210) 292 MG/DL TRIGLYCERIDES (test code = 2232) 184 MG/DL HDL CHOLESTEROL (test code = 2220) 51 MG/DL CALC LDL CHOL (test code = 2237) 205 MG/DL RISK RATIO LDL/HDL (test code = 4.02 RATIO 2238) LIPID [id number] 00:00:00 Test Item Value Reference Range Interpretation Comments CHOLESTEROL (test code = 2210) 292 MG/DL TRIGLYCERIDES (test code = 2232) 184 MG/DL HDL CHOLESTEROL (test code = 2220) 51 MG/DL CALC LDL CHOL (test code = 2237) 205 MG/DL RISK RATIO LDL/HDL (test code = 4.02 RATIO 2238) HEMOGLOBIN [id number] 00:00:00 Test Item Value Reference Range Interpretation Comments HEMOGLOBIN A1c (test code = 36985) 6.6 % HEMOGLOBIN [id number] 00:00:00 Test Item Value Reference Range Interpretation Comments HEMOGLOBIN A1c (test code = 26476) 6.6 % HEMOGLOBIN [id number] 00:00:00 Test Item Value Reference Range Interpretation Comments HEMOGLOBIN A1c (test code = 49240) 6.6 % [id number] 00:00:00 Test Item Value Reference Range Interpretation Comments TSH, THIRD GENERATION (test code 2.080 UIU/ML = 2821) [id number] 00:00:00 Test Item Value Reference Range Interpretation Comments TSH, THIRD GENERATION (test code 2.080 UIU/ML = 2821) [id number] 00:00:00 Test Item Value Reference Range Interpretation Comments TSH, THIRD GENERATION (test code 2.080 UIU/ML = 2821) LIPID [id number] 00:00:00 Test Item Value Reference Range Interpretation Comments CHOLESTEROL (test code = 2210) 292 MG/DL TRIGLYCERIDES (test code = 2232) 184 MG/DL HDL CHOLESTEROL (test code = 2220) 51 MG/DL CALC LDL CHOL (test code = 2237) 205 MG/DL RISK RATIO LDL/HDL (test code = 4.02 RATIO 2238) LIPID [id number] 00:00:00 Test Item Value Reference Range Interpretation Comments CHOLESTEROL (test code = 2210) 292 MG/DL TRIGLYCERIDES (test code = 2232) 184 MG/DL HDL CHOLESTEROL (test code = 2220) 51 MG/DL CALC LDL CHOL (test code = 2237) 205 MG/DL RISK RATIO LDL/HDL (test code = 4.02 RATIO 2238) HEMOGLOBIN [id number] 00:00:00 Test Item Value Reference Range Interpretation Comments HEMOGLOBIN A1c (test code = 62373) 6.6 % HEMOGLOBIN [id number] 00:00:00 Test Item Value Reference Range Interpretation Comments HEMOGLOBIN A1c (test code = 95099) 6.6 % HEMOGLOBIN [id number] 00:00:00 Test Item Value Reference Range Interpretation Comments HEMOGLOBIN A1c (test code = 23144) 6.6 % [id number] 00:00:00 Test Item Value Reference Range Interpretation Comments TSH, THIRD GENERATION (test code 2.080 UIU/ML = 2821) [id number] 00:00:00 Test Item Value Reference Range Interpretation Comments TSH, THIRD GENERATION (test code 2.080 UIU/ML = 2821) LIPID [id number] 00:00:00 Test Item Value Reference Range Interpretation Comments CHOLESTEROL (test code = 2210) 292 MG/DL TRIGLYCERIDES (test code = 2232) 184 MG/DL HDL CHOLESTEROL (test code = 2220) 51 MG/DL CALC LDL CHOL (test code = 2237) 205 MG/DL RISK RATIO LDL/HDL (test code = 4.02 RATIO 2238) HEMOGLOBIN [id number] 00:00:00 Test Item Value Reference Range Interpretation Comments HEMOGLOBIN A1c (test code = 86234) 6.6 % HEMOGLOBIN [id number] 00:00:00 Test Item Value Reference Range Interpretation Comments HEMOGLOBIN A1c (test code = 45380) 6.6 % [id number] 00:00:00 Test Item Value Reference Range Interpretation Comments TSH, THIRD GENERATION (test code 2.080 UIU/ML = 2821) [id number] 00:00:00 Test Item Value Reference Range Interpretation Comments TSH, THIRD GENERATION (test code 2.080 UIU/ML = 2821) [id number] 00:00:00 Test Item Value Reference Range Interpretation Comments TSH, THIRD GENERATION (test code 2.080 UIU/ML = 2821) LIPID [id number] 00:00:00 Test Item Value Reference Range Interpretation Comments CHOLESTEROL (test code = 2210) 292 MG/DL TRIGLYCERIDES (test code = 2232) 184 MG/DL HDL CHOLESTEROL (test code = 2220) 51 MG/DL CALC LDL CHOL (test code = 2237) 205 MG/DL RISK RATIO LDL/HDL (test code = 4.02 RATIO 2238) LIPID [id number] 00:00:00 Test Item Value Reference Range Interpretation Comments CHOLESTEROL (test code = 2210) 292 MG/DL TRIGLYCERIDES (test code = 2232) 184 MG/DL HDL CHOLESTEROL (test code = 2220) 51 MG/DL CALC LDL CHOL (test code = 2237) 205 MG/DL RISK RATIO LDL/HDL (test code = 4.02 RATIO 2238) HEMOGLOBIN [id number] 00:00:00 Test Item Value Reference Range Interpretation Comments HEMOGLOBIN A1c (test code = 85443) 6.6 % HEMOGLOBIN [id number] 00:00:00 Test Item Value Reference Range Interpretation Comments HEMOGLOBIN A1c (test code = 67680) 6.6 % HEMOGLOBIN [id number] 00:00:00 Test Item Value Reference Range Interpretation Comments HEMOGLOBIN A1c (test code = 94381) 6.6 % HEMOGLOBIN [id number] 00:00:00 Test Item Value Reference Range Interpretation Comments HEMOGLOBIN A1c (test code = 04211) 6.8 % HEMOGLOBIN [id number] 00:00:00 Test Item Value Reference Range Interpretation Comments HEMOGLOBIN A1c (test code = 06879) 6.8 % HEMOGLOBIN [id number] 00:00:00 Test Item Value Reference Range Interpretation Comments HEMOGLOBIN A1c (test code = 36834) 6.8 % LIPID [id number] 00:00:00 Test Item Value Reference Range Interpretation Comments CHOLESTEROL (test code = 2210) 303 MG/DL TRIGLYCERIDES (test code = 2232) 191 MG/DL HDL CHOLESTEROL (test code = 2220) 61 MG/DL CALC LDL CHOL (test code = 2237) 205 MG/DL RISK RATIO LDL/HDL (test code = 3.36 RATIO 2238) LIPID [id number] 00:00:00 Test Item Value Reference Range Interpretation Comments CHOLESTEROL (test code = 2210) 303 MG/DL TRIGLYCERIDES (test code = 2232) 191 MG/DL HDL CHOLESTEROL (test code = 2220) 61 MG/DL CALC LDL CHOL (test code = 2237) 205 MG/DL RISK RATIO LDL/HDL (test code = 3.36 RATIO 2238) [id number] 00:00:00 Test Item Value Reference Range Interpretation Comments TSH, THIRD GENERATION (test code 0.769 UIU/ML = 2821) [id number] 00:00:00 Test Item Value Reference Range Interpretation Comments TSH, THIRD GENERATION (test code 0.769 UIU/ML = 2821) [id number] 00:00:00 Test Item Value Reference Range Interpretation Comments TSH, THIRD GENERATION (test code 0.769 UIU/ML = 2821) COMPREHENSIVE METABOLIC [id number] 00:00:00 Test Item Value Reference Range Interpretation Comments GLUCOSE (test code = 2217) 131 MG/DL BUN (test code = 2208) 13 MG/DL CREATININE (test code = 2214) 0.65 MG/DL eGFR AMER. (test code 113 ML/MIN/1.73 = 15641) eGFR NON- AMER. (test 97 ML/MIN/1.73 code = 97608) CALC BUN/CREAT (test code = 20 RATIO [...] code = 2219) 23 U/L COMPREHENSIVE METABOLIC [id number] 00:00:00 Test Item Value Reference Range Interpretation Comments GLUCOSE (test code = 2217) 131 MG/DL BUN (test code = 2208) 13 MG/DL CREATININE (test code = 2214) 0.65 MG/DL eGFR AMER. (test code 113 ML/MIN/1.73 = 92659) eGFR NON- AMER. (test 97 ML/MIN/1.73 code = 89180) CALC BUN/CREAT (test code = 20 RATIO [...] (test code = 2219) 23 U/L HEMOGLOBIN [id number] 00:00:00 Test Item Value Reference Range Interpretation Comments HEMOGLOBIN A1c (test code = 80419) 6.8 % HEMOGLOBIN [id number] 00:00:00 Test Item Value Reference Range Interpretation Comments HEMOGLOBIN A1c (test code = 00589) 6.8 % HEMOGLOBIN [id number] 00:00:00 Test Item Value Reference Range Interpretation Comments HEMOGLOBIN A1c (test code = 61213) 6.8 % LIPID [id number] 00:00:00 Test Item Value Reference Range Interpretation Comments CHOLESTEROL (test code = 2210) 303 MG/DL TRIGLYCERIDES (test code = 2232) 191 MG/DL HDL CHOLESTEROL (test code = 2220) 61 MG/DL CALC LDL CHOL (test code = 2237) 205 MG/DL RISK RATIO LDL/HDL (test code = 3.36 RATIO 2238) LIPID [id number] 00:00:00 Test Item Value Reference Range Interpretation Comments CHOLESTEROL (test code = 2210) 303 MG/DL TRIGLYCERIDES (test code = 2232) 191 MG/DL HDL CHOLESTEROL (test code = 2220) 61 MG/DL CALC LDL CHOL (test code = 2237) 205 MG/DL RISK RATIO LDL/HDL (test code = 3.36 RATIO 2238) [id number] 00:00:00 Test Item Value Reference Range Interpretation Comments TSH, THIRD GENERATION (test code 0.769 UIU/ML = 2821) [id number] 00:00:00 Test Item Value Reference Range Interpretation Comments TSH, THIRD GENERATION (test code 0.769 UIU/ML = 2821) [id number] 00:00:00 Test Item Value Reference Range Interpretation Comments TSH, THIRD GENERATION (test code 0.769 UIU/ML = 2821) COMPREHENSIVE METABOLIC [id number] 00:00:00 Test Item Value Reference Range Interpretation Comments GLUCOSE (test code = 2217) 131 MG/DL BUN (test code = 2208) 13 MG/DL CREATININE (test code = 2214) 0.65 MG/DL eGFR AMER. (test code 113 ML/MIN/1.73 = 15881) eGFR NON- AMER. (test 97 ML/MIN/1.73 code = 98636) CALC BUN/CREAT (test code = 20 RATIO [...] code = 2219) 23 U/L COMPREHENSIVE METABOLIC [id number] 00:00:00 Test Item Value Reference Range Interpretation Comments GLUCOSE (test code = 2217) 131 MG/DL BUN (test code = 2208) 13 MG/DL CREATININE (test code = 2214) 0.65 MG/DL eGFR AMER. (test code 113 ML/MIN/1.73 = 39007) eGFR NON- AMER. (test 97 ML/MIN/1.73 code = 62595) CALC BUN/CREAT (test code = 20 RATIO [...] (test code = 2219) 23 U/L HEMOGLOBIN [id number] 00:00:00 Test Item Value Reference Range Interpretation Comments HEMOGLOBIN A1c (test code = 76557) 6.8 % HEMOGLOBIN [id number] 00:00:00 Test Item Value Reference Range Interpretation Comments HEMOGLOBIN A1c (test code = 43047) 6.8 % LIPID [id number] 00:00:00 Test Item Value Reference Range Interpretation Comments CHOLESTEROL (test code = 2210) 303 MG/DL TRIGLYCERIDES (test code = 2232) 191 MG/DL HDL CHOLESTEROL (test code = 2220) 61 MG/DL CALC LDL CHOL (test code = 2237) 205 MG/DL RISK RATIO LDL/HDL (test code = 3.36 RATIO 2238) [id number] 00:00:00 Test Item Value Reference Range Interpretation Comments TSH, THIRD GENERATION (test code 0.769 UIU/ML = 2821) [id number] 00:00:00 Test Item Value Reference Range Interpretation Comments TSH, THIRD GENERATION (test code 0.769 UIU/ML = 2821) COMPREHENSIVE METABOLIC [id number] 00:00:00 Test Item Value Reference Range Interpretation Comments GLUCOSE (test code = 2217) 131 MG/DL BUN (test code = 2208) 13 MG/DL CREATININE (test code = 2214) 0.65 MG/DL eGFR AMER. (test code 113 ML/MIN/1.73 = 86535) eGFR NON- AMER. (test 97 ML/MIN/1.73 code = 18054) CALC BUN/CREAT (test code = 20 RATIO [...] (test code = 2219) 23 U/L HEMOGLOBIN [id number] 00:00:00 Test Item Value Reference Range Interpretation Comments HEMOGLOBIN A1c (test code = 88343) 6.8 % HEMOGLOBIN [id number] 00:00:00 Test Item Value Reference Range Interpretation Comments HEMOGLOBIN A1c (test code = 65818) 6.8 % HEMOGLOBIN [id number] 00:00:00 Test Item Value Reference Range Interpretation Comments HEMOGLOBIN A1c (test code = 68618) 6.8 % LIPID [id number] 00:00:00 Test Item Value Reference Range Interpretation Comments CHOLESTEROL (test code = 2210) 303 MG/DL TRIGLYCERIDES (test code = 2232) 191 MG/DL HDL CHOLESTEROL (test code = 2220) 61 MG/DL CALC LDL CHOL (test code = 2237) 205 MG/DL RISK RATIO LDL/HDL (test code = 3.36 RATIO 2238) LIPID [id number] 00:00:00 Test Item Value Reference Range Interpretation Comments CHOLESTEROL (test code = 2210) 303 MG/DL TRIGLYCERIDES (test code = 2232) 191 MG/DL HDL CHOLESTEROL (test code = 2220) 61 MG/DL CALC LDL CHOL (test code = 2237) 205 MG/DL RISK RATIO LDL/HDL (test code = 3.36 RATIO 2238) [id number] 00:00:00 Test Item Value Reference Range Interpretation Comments TSH, THIRD GENERATION (test code 0.769 UIU/ML = 2821) [id number] 00:00:00 Test Item Value Reference Range Interpretation Comments TSH, THIRD GENERATION (test code 0.769 UIU/ML = 2821) [id number] 00:00:00 Test Item Value Reference Range Interpretation Comments TSH, THIRD GENERATION (test code 0.769 UIU/ML = 2821) COMPREHENSIVE METABOLIC [id number] 00:00:00 Test Item Value Reference Range Interpretation Comments GLUCOSE (test code = 2217) 131 MG/DL BUN (test code = 2208) 13 MG/DL CREATININE (test code = 2214) 0.65 MG/DL eGFR AMER. (test code 113 ML/MIN/1.73 = 53422) eGFR NON- AMER. (test 97 ML/MIN/1.73 code = 45972) CALC BUN/CREAT (test code = 20 RATIO [...] code = 2219) 23 U/L COMPREHENSIVE METABOLIC [id number] 00:00:00 Test Item Value Reference Range Interpretation Comments GLUCOSE (test code = 2217) 131 MG/DL BUN (test code = 2208) 13 MG/DL CREATININE (test code = 2214) 0.65 MG/DL eGFR AMER. (test code 113 ML/MIN/1.73 = 53518) eGFR NON- AMER. (test 97 ML/MIN/1.73 code = 28362) CALC BUN/CREAT (test code = 20 RATIO [...] (test code = 2219) 23 U/L HEMOGLOBIN [id number] 00:00:00 Test Item Value Reference Range Interpretation Comments HEMOGLOBIN A1c (test code = 21028) 6.6 % HEMOGLOBIN [id number] 00:00:00 Test Item Value Reference Range Interpretation Comments HEMOGLOBIN A1c (test code = 29144) 6.6 % HEMOGLOBIN [id number] 00:00:00 Test Item Value Reference Range Interpretation Comments HEMOGLOBIN A1c (test code = 15014) 6.6 % LIPID [id number] 00:00:00 Test Item Value Reference Range Interpretation Comments CHOLESTEROL (test code = 2210) 261 MG/DL TRIGLYCERIDES (test code = 2232) 159 MG/DL HDL CHOLESTEROL (test code = 2220) 82 MG/DL CALC LDL CHOL (test code = 2237) 150 MG/DL RISK RATIO LDL/HDL (test code = 1.83 RATIO 2238) LIPID [id number] 00:00:00 Test Item Value Reference Range Interpretation Comments CHOLESTEROL (test code = 2210) 261 MG/DL TRIGLYCERIDES (test code = 2232) 159 MG/DL HDL CHOLESTEROL (test code = 2220) 82 MG/DL CALC LDL CHOL (test code = 2237) 150 MG/DL RISK RATIO LDL/HDL (test code = 1.83 RATIO 2238) COMPREHENSIVE METABOLIC [id number] 00:00:00 Test Item Value Reference Range Interpretation Comments GLUCOSE (test code = 2217) 144 MG/DL BUN (test code = 2208) 15 MG/DL CREATININE (test code = 2214) 0.85 MG/DL eGFR AMER. (test code 87 ML/MIN/1.73 = 09011) eGFR NON- AMER. (test 75 ML/MIN/1.73 code = 70473) CALC BUN/CREAT (test code = 18 RATIO [...] code = 2219) 50 U/L COMPREHENSIVE METABOLIC [id number] 00:00:00 Test Item Value Reference Range Interpretation Comments GLUCOSE (test code = 2217) 144 MG/DL BUN (test code = 2208) 15 MG/DL CREATININE (test code = 2214) 0.85 MG/DL eGFR AMER. (test code 87 ML/MIN/1.73 = 73898) eGFR NON- AMER. (test 75 ML/MIN/1.73 code = 24746) CALC BUN/CREAT (test code = 18 RATIO [...] THYROX. BIND. CAPAC. (test code 1.1 = 68131) T4 (THYROXINE) (test code = 4.3 UG/DL 2819) CORRECTED T4 (FTI) (test code = 3.9 UG/DL 2820) TSH, THIRD GENERATION (test 18.900 UIU/ML code = 2821) THYROID II PROFILE (T3U, T4, T7, TSH)[id number] 00:00:00 Test Item Value Reference Range Interpretation Comments T-UPTAKE (test code = 7) 30.2 % THYROX. BIND. CAPAC. (test code 1.1 = 80190) T4 (THYROXINE) (test code = 4.3 UG/DL 2819) CORRECTED T4 (FTI) (test code = 3.9 UG/DL 2820) TSH, THIRD GENERATION (test 18.900 UIU/ML code = 2821) HEMOGLOBIN [id number] 00:00:00 Test Item Value Reference Range Interpretation Comments HEMOGLOBIN A1c (test code = 82666) 6.6 % HEMOGLOBIN [id number] 00:00:00 Test Item Value Reference Range Interpretation Comments HEMOGLOBIN A1c (test code = 44331) 6.6 % HEMOGLOBIN [id number] 00:00:00 Test Item Value Reference Range Interpretation Comments HEMOGLOBIN A1c (test code = 19497) 6.6 % LIPID [id number] 00:00:00 Test Item Value Reference Range Interpretation Comments CHOLESTEROL (test code = 2210) 261 MG/DL TRIGLYCERIDES (test code = 2232) 159 MG/DL HDL CHOLESTEROL (test code = 2220) 82 MG/DL CALC LDL CHOL (test code = 2237) 150 MG/DL RISK RATIO LDL/HDL (test code = 1.83 RATIO 2238) LIPID [id number] 00:00:00 Test Item Value Reference Range Interpretation Comments CHOLESTEROL (test code = 2210) 261 MG/DL TRIGLYCERIDES (test code = 2232) 159 MG/DL HDL CHOLESTEROL (test code = 2220) 82 MG/DL CALC LDL CHOL (test code = 2237) 150 MG/DL RISK RATIO LDL/HDL (test code = 1.83 RATIO 2238) COMPREHENSIVE METABOLIC [id number] 00:00:00 Test Item Value Reference Range Interpretation Comments GLUCOSE (test code = 2217) 144 MG/DL BUN (test code = 2208) 15 MG/DL CREATININE (test code = 2214) 0.85 MG/DL eGFR AMER. (test code 87 ML/MIN/1.73 = 99146) eGFR NON- AMER. (test 75 ML/MIN/1.73 code = 39428) CALC BUN/CREAT (test code = 18 RATIO [...] code = 2219) 50 U/L COMPREHENSIVE METABOLIC [id number] 00:00:00 Test Item Value Reference Range Interpretation Comments GLUCOSE (test code = 2217) 144 MG/DL BUN (test code = 2208) 15 MG/DL CREATININE (test code = 2214) 0.85 MG/DL eGFR AMER. (test code 87 ML/MIN/1.73 = 61485) eGFR NON- AMER. (test 75 ML/MIN/1.73 code = 32284) CALC BUN/CREAT (test code = 18 RATIO [...] THYROX. BIND. CAPAC. (test code 1.1 = 43255) T4 (THYROXINE) (test code = 4.3 UG/DL 2819) CORRECTED T4 (FTI) (test code = 3.9 UG/DL 2820) TSH, THIRD GENERATION (test 18.900 UIU/ML code = 2821) THYROID II PROFILE (T3U, T4, T7, TSH)2020-05-23 00:00:00 Test Item Value Reference Range Interpretation Comments T-UPTAKE (test code = 7) 30.2 % THYROX. BIND. CAPAC. (test code 1.1 = 39601) T4 (THYROXINE) (test code = 4.3 UG/DL 2819) CORRECTED T4 (FTI) (test code = 3.9 UG/DL 2820) TSH, THIRD GENERATION (test 18.900 UIU/ML code = 2821) HEMOGLOBIN [id number] 00:00:00 Test Item Value Reference Range Interpretation Comments HEMOGLOBIN A1c (test code = 86659) 6.6 % HEMOGLOBIN [id number] 00:00:00 Test Item Value Reference Range Interpretation Comments HEMOGLOBIN A1c (test code = 89618) 6.6 % LIPID [id number] 00:00:00 Test Item Value Reference Range Interpretation Comments CHOLESTEROL (test code = 2210) 261 MG/DL TRIGLYCERIDES (test code = 2232) 159 MG/DL HDL CHOLESTEROL (test code = 2220) 82 MG/DL CALC LDL CHOL (test code = 2237) 150 MG/DL RISK RATIO LDL/HDL (test code = 1.83 RATIO 2238) COMPREHENSIVE METABOLIC [id number] 00:00:00 Test Item Value Reference Range Interpretation Comments GLUCOSE (test code = 2217) 144 MG/DL BUN (test code = 2208) 15 MG/DL CREATININE (test code = 2214) 0.85 MG/DL eGFR AMER. (test code 87 ML/MIN/1.73 = 78751) eGFR NON- AMER. (test 75 ML/MIN/1.73 code = 50674) CALC BUN/CREAT (test code = 18 RATIO [...] THYROX. BIND. CAPAC. (test code 1.1 = 85195) T4 (THYROXINE) (test code = 4.3 UG/DL 2818) CORRECTED T4 (FTI) (test code = 3.9 UG/DL 2820) TSH, THIRD GENERATION (test 18.900 UIU/ML code = 2821) HEMOGLOBIN [id number] 00:00:00 Test Item Value Reference Range Interpretation Comments HEMOGLOBIN A1c (test code = 11064) 6.6 % HEMOGLOBIN [id number] 00:00:00 Test Item Value Reference Range Interpretation Comments HEMOGLOBIN A1c (test code = 18379) 6.6 % HEMOGLOBIN [id number] 00:00:00 Test Item Value Reference Range Interpretation Comments HEMOGLOBIN A1c (test code = 86663) 6.6 % LIPID [id number] 00:00:00 Test Item Value Reference Range Interpretation Comments CHOLESTEROL (test code = 2210) 261 MG/DL TRIGLYCERIDES (test code = 2232) 159 MG/DL HDL CHOLESTEROL (test code = 2220) 82 MG/DL CALC LDL CHOL (test code = 2237) 150 MG/DL RISK RATIO LDL/HDL (test code = 1.83 RATIO 2238) LIPID [id number] 00:00:00 Test Item Value Reference Range Interpretation Comments CHOLESTEROL (test code = 2210) 261 MG/DL TRIGLYCERIDES (test code = 2232) 159 MG/DL HDL CHOLESTEROL (test code = 2220) 82 MG/DL CALC LDL CHOL (test code = 2237) 150 MG/DL RISK RATIO LDL/HDL (test code = 1.83 RATIO 2238) COMPREHENSIVE METABOLIC [id number] 00:00:00 Test Item Value Reference Range Interpretation Comments GLUCOSE (test code = 2217) 144 MG/DL BUN (test code = 2208) 15 MG/DL CREATININE (test code = 2214) 0.85 MG/DL eGFR AMER. (test code 87 ML/MIN/1.73 = 29626) eGFR NON- AMER. (test 75 ML/MIN/1.73 code = 88567) CALC BUN/CREAT (test code = 18 RATIO [...] code = 2219) 50 U/L COMPREHENSIVE METABOLIC [id number] 00:00:00 Test Item Value Reference Range Interpretation Comments GLUCOSE (test code = 2217) 144 MG/DL BUN (test code = 2208) 15 MG/DL CREATININE (test code = 2214) 0.85 MG/DL eGFR AMER. (test code 87 ML/MIN/1.73 = 77938) eGFR NON- AMER. (test 75 ML/MIN/1.73 code = 14580) CALC BUN/CREAT (test code = 18 RATIO [...] THYROX. BIND. CAPAC. (test code 1.1 = 77833) T4 (THYROXINE) (test code = 4.3 UG/DL 2819) CORRECTED T4 (FTI) (test code = 3.9 UG/DL 2820) TSH, THIRD GENERATION (test 18.900 UIU/ML code = 2821) THYROID II PROFILE (T3U, T4, T7, TSH)2020-05-23 00:00:00 Test Item Value Reference Range Interpretation Comments T-UPTAKE (test code = 2817) 30.2 % THYROX. BIND. CAPAC. (test code 1.1 = 12508) T4 (THYROXINE) (test code = 4.3 UG/DL 2819) CORRECTED T4 (FTI) (test code = 3.9 UG/DL 2820) TSH, THIRD GENERATION (test 18.900 UIU/ML code = 2821) HEMOGLOBIN [id number] 00:00:00 Test Item Value Reference Range Interpretation Comments HEMOGLOBIN A1c (test code = 00508) 6.7 % HEMOGLOBIN [id number] 00:00:00 Test Item Value Reference Range Interpretation Comments HEMOGLOBIN A1c (test code = 03679) 6.7 % HEMOGLOBIN [id number] 00:00:00 Test Item Value Reference Range Interpretation Comments HEMOGLOBIN A1c (test code = 97180) 6.7 % LIPID [id number] 00:00:00 Test Item Value Reference Range Interpretation Comments CHOLESTEROL (test code = 2210) 267 MG/DL TRIGLYCERIDES (test code = 2232) 137 MG/DL HDL CHOLESTEROL (test code = 2220) 48 MG/DL CALC LDL CHOL (test code = 2237) 192 MG/DL RISK RATIO LDL/HDL (test code = 4.00 RATIO 2238) LIPID [id number] 00:00:00 Test Item Value Reference Range Interpretation Comments CHOLESTEROL (test code = 2210) 267 MG/DL TRIGLYCERIDES (test code = 2232) 137 MG/DL HDL CHOLESTEROL (test code = 2220) 48 MG/DL CALC LDL CHOL (test code = 2237) 192 MG/DL RISK RATIO LDL/HDL (test code = 4.00 RATIO 2238) COMPREHENSIVE METABOLIC [id number] 00:00:00 Test Item Value Reference Range Interpretation Comments GLUCOSE (test code = 2217) 155 MG/DL BUN (test code = 2208) 14 MG/DL CREATININE (test code = 2214) 0.52 MG/DL eGFR AMER. (test code 122 ML/MIN/1.73 = 13493) eGFR NON- AMER. (test 105 ML/MIN/1.73 code = 95785) CALC BUN/CREAT (test code = 27 RATIO [...] code = 2219) 27 U/L COMPREHENSIVE METABOLIC [id number] 00:00:00 Test Item Value Reference Range Interpretation Comments GLUCOSE (test code = 2217) 155 MG/DL BUN (test code = 2208) 14 MG/DL CREATININE (test code = 2214) 0.52 MG/DL eGFR AMER. (test code 122 ML/MIN/1.73 = 72239) eGFR NON- AMER. (test 105 ML/MIN/1.73 code = 36249) CALC BUN/CREAT (test code = 27 RATIO [...] THYROX. BIND. CAPAC. (test code 1.0 = 83362) T4 (THYROXINE) (test code = 4.7 UG/DL 2819) CORRECTED T4 (FTI) (test code = 4.7 UG/DL 2820) TSH, THIRD GENERATION (test code 0.201 UIU/ML = 2821) THYROID II PROFILE (T3U, T4, T7, TSH)2019 00:00:00 Test Item Value Reference Range Interpretation Comments T-UPTAKE (test code = 2817) 33.1 % THYROX. BIND. CAPAC. (test code 1.0 = 03264) T4 (THYROXINE) (test code = 4.7 UG/DL 2819) CORRECTED T4 (FTI) (test code = 4.7 UG/DL 2820) TSH, THIRD GENERATION (test code 0.201 UIU/ML = 2821) HEMOGLOBIN [id number] 00:00:00 Test Item Value Reference Range Interpretation Comments HEMOGLOBIN A1c (test code = 09913) 6.7 % HEMOGLOBIN [id number] 00:00:00 Test Item Value Reference Range Interpretation Comments HEMOGLOBIN A1c (test code = 00985) 6.7 % HEMOGLOBIN [id number] 00:00:00 Test Item Value Reference Range Interpretation Comments HEMOGLOBIN A1c (test code = 48600) 6.7 % LIPID [id number] 00:00:00 Test Item Value Reference Range Interpretation Comments CHOLESTEROL (test code = 2210) 267 MG/DL TRIGLYCERIDES (test code = 2232) 137 MG/DL HDL CHOLESTEROL (test code = 2220) 48 MG/DL CALC LDL CHOL (test code = 2237) 192 MG/DL RISK RATIO LDL/HDL (test code = 4.00 RATIO 2238) LIPID [id number] 00:00:00 Test Item Value Reference Range Interpretation Comments CHOLESTEROL (test code = 2210) 267 MG/DL TRIGLYCERIDES (test code = 2232) 137 MG/DL HDL CHOLESTEROL (test code = 2220) 48 MG/DL CALC LDL CHOL (test code = 2237) 192 MG/DL RISK RATIO LDL/HDL (test code = 4.00 RATIO 2238) COMPREHENSIVE METABOLIC [id number] 00:00:00 Test Item Value Reference Range Interpretation Comments GLUCOSE (test code = 2217) 155 MG/DL BUN (test code = 2208) 14 MG/DL CREATININE (test code = 2214) 0.52 MG/DL eGFR AMER. (test code 122 ML/MIN/1.73 = 90516) eGFR NON- AMER. (test 105 ML/MIN/1.73 code = 87629) CALC BUN/CREAT (test code = 27 RATIO [...] code = 2219) 27 U/L COMPREHENSIVE METABOLIC [id number] 00:00:00 Test Item Value Reference Range Interpretation Comments GLUCOSE (test code = 2217) 155 MG/DL BUN (test code = 2208) 14 MG/DL CREATININE (test code = 2214) 0.52 MG/DL eGFR AMER. (test code 122 ML/MIN/1.73 = 94446) eGFR NON- AMER. (test 105 ML/MIN/1.73 code = 21644) CALC BUN/CREAT (test code = 27 RATIO [...] THYROX. BIND. CAPAC. (test code 1.0 = 61672) T4 (THYROXINE) (test code = 4.7 UG/DL 2819) CORRECTED T4 (FTI) (test code = 4.7 UG/DL 2820) TSH, THIRD GENERATION (test code 0.201 UIU/ML = 2821) THYROID II PROFILE (T3U, T4, T7, TSH)2019 00:00:00 Test Item Value Reference Range Interpretation Comments T-UPTAKE (test code = 2816) 33.1 % THYROX. BIND. CAPAC. (test code 1.0 = 05434) T4 (THYROXINE) (test code = 4.7 UG/DL 2819) CORRECTED T4 (FTI) (test code = 4.7 UG/DL 2820) TSH, THIRD GENERATION (test code 0.201 UIU/ML = 2821) HEMOGLOBIN [id number] 00:00:00 Test Item Value Reference Range Interpretation Comments HEMOGLOBIN A1c (test code = 75599) 6.7 % HEMOGLOBIN [id number] 00:00:00 Test Item Value Reference Range Interpretation Comments HEMOGLOBIN A1c (test code = 01417) 6.7 % LIPID [id number] 00:00:00 Test Item Value Reference Range Interpretation Comments CHOLESTEROL (test code = 2210) 267 MG/DL TRIGLYCERIDES (test code = 2232) 137 MG/DL HDL CHOLESTEROL (test code = 2220) 48 MG/DL CALC LDL CHOL (test code = 2237) 192 MG/DL RISK RATIO LDL/HDL (test code = 4.00 RATIO 2238) COMPREHENSIVE METABOLIC [id number] 00:00:00 Test Item Value Reference Range Interpretation Comments GLUCOSE (test code = 2217) 155 MG/DL BUN (test code = 2208) 14 MG/DL CREATININE (test code = 2214) 0.52 MG/DL eGFR AMER. (test code 122 ML/MIN/1.73 = 66988) eGFR NON- AMER. (test 105 ML/MIN/1.73 code = 02494) CALC BUN/CREAT (test code = 27 RATIO 5) SODIUM (test code = 2231) [...] THYROX. BIND. CAPAC. (test code 1.0 = 74491) T4 (THYROXINE) (test code = 4.7 UG/DL 2819) CORRECTED T4 (FTI) (test code = 4.7 UG/DL 2820) TSH, THIRD GENERATION (test code 0.201 UIU/ML = 2821) HEMOGLOBIN [id number] 00:00:00 Test Item Value Reference Range Interpretation Comments HEMOGLOBIN A1c (test code = 77234) 6.7 % HEMOGLOBIN [id number] 00:00:00 Test Item Value Reference Range Interpretation Comments HEMOGLOBIN A1c (test code = 64269) 6.7 % HEMOGLOBIN [id number] 00:00:00 Test Item Value Reference Range Interpretation Comments HEMOGLOBIN A1c (test code = 29994) 6.7 % LIPID [id number] 00:00:00 Test Item Value Reference Range Interpretation Comments CHOLESTEROL (test code = 2210) 267 MG/DL TRIGLYCERIDES (test code = 2232) 137 MG/DL HDL CHOLESTEROL (test code = 2220) 48 MG/DL CALC LDL CHOL (test code = 2237) 192 MG/DL RISK RATIO LDL/HDL (test code = 4.00 RATIO 2238) LIPID [id number] 00:00:00 Test Item Value Reference Range Interpretation Comments CHOLESTEROL (test code = 2210) 267 MG/DL TRIGLYCERIDES (test code = 2232) 137 MG/DL HDL CHOLESTEROL (test code = 2220) 48 MG/DL CALC LDL CHOL (test code = 2237) 192 MG/DL RISK RATIO LDL/HDL (test code = 4.00 RATIO 2238) COMPREHENSIVE METABOLIC [id number] 00:00:00 Test Item Value Reference Range Interpretation Comments GLUCOSE (test code = 2217) 155 MG/DL BUN (test code = 2208) 14 MG/DL CREATININE (test code = 2214) 0.52 MG/DL eGFR AMER. (test code 122 ML/MIN/1.73 = 02137) eGFR NON- AMER. (test 105 ML/MIN/1.73 code = 23939) CALC BUN/CREAT (test code = 27 RATIO [...] code = 2219) 27 U/L COMPREHENSIVE METABOLIC [id number] 00:00:00 Test Item Value Reference Range Interpretation Comments GLUCOSE (test code = 2217) 155 MG/DL BUN (test code = 2208) 14 MG/DL CREATININE (test code = 2214) 0.52 MG/DL eGFR AMER. (test code 122 ML/MIN/1.73 = 00840) eGFR NON- AMER. (test 105 ML/MIN/1.73 code = 85484) CALC BUN/CREAT (test code = 27 RATIO [...] THYROX. BIND. CAPAC. (test code 1.0 = 93213) T4 (THYROXINE) (test code = 4.7 UG/DL 2819) CORRECTED T4 (FTI) (test code = 4.7 UG/DL 2820) TSH, THIRD GENERATION (test code 0.201 UIU/ML = 2821) THYROID II PROFILE (T3U, T4, T7, TSH)2019 00:00:00 Test Item Value Reference Range Interpretation Comments T-UPTAKE (test code = 7) 33.1 % THYROX. BIND. CAPAC. (test code 1.0 = 64149) T4 (THYROXINE) (test code = 4.7 UG/DL 2819) CORRECTED T4 (FTI) (test code = 4.7 UG/DL 2820) TSH, THIRD GENERATION (test code 0.201 UIU/ML = 2821) SARS-CoV-2 (COVID-19) by RT-PCR (HIGH RISK)2019-09-18 00:00:00 Test Item Value Reference Range Interpretation Comments SARS-CoV-2 INTERPRETATION (test NEGATIVE code = 60466) SOURCE (test code = 18096) NOT SPECIFIED SARS-CoV-2 (COVID-19) by RT-PCR (HIGH RISK)2019-09-18 00:00:00 Test Item Value Reference Range Interpretation Comments SARS-CoV-2 INTERPRETATION (test NEGATIVE code = 23535) SOURCE (test code = 49200) NOT SPECIFIED SARS-CoV-2 (COVID-19) by RT-PCR (HIGH RISK)2019-09-18 00:00:00 Test Item Value Reference Range Interpretation Comments SARS-CoV-2 INTERPRETATION (test NEGATIVE code = 16489) SOURCE (test code = 83441) NOT SPECIFIED SARS-CoV-2 (COVID-19) by RT-PCR (HIGH RISK)2019-09-18 00:00:00 Test Item Value Reference Range Interpretation Comments SARS-CoV-2 INTERPRETATION (test NEGATIVE code = 55384) SOURCE (test code = 98032) NOT SPECIFIED SARS-CoV-2 (COVID-19) by RT-PCR (HIGH RISK)2019-09-18 00:00:00 Test Item Value Reference Range Interpretation Comments SARS-CoV-2 INTERPRETATION (test NEGATIVE code = 35890) SOURCE (test code = 98068) NOT SPECIFIED SARS-CoV-2 (COVID-19) by RT-PCR (HIGH RISK)2019-09-18 00:00:00 Test Item Value Reference Range Interpretation Comments SARS-CoV-2 INTERPRETATION (test NEGATIVE code = 52213) SOURCE (test code = 06328) NOT SPECIFIED SARS-CoV-2 (COVID-19) by RT-PCR (HIGH RISK)2019-09-18 00:00:00 Test Item Value Reference Range Interpretation Comments SARS-CoV-2 INTERPRETATION (test NEGATIVE code = 86120) SOURCE (test code = 72489) NOT SPECIFIED [id number] 00:00:00 Test Item Value Reference Range Interpretation Comments TSH, THIRD GENERATION (test code 2.490 UIU/ML = 2821) [id number] 00:00:00 Test Item Value Reference Range Interpretation Comments TSH, THIRD GENERATION (test code 2.490 UIU/ML = 2821) [id number] 00:00:00 Test Item Value Reference Range Interpretation Comments TSH, THIRD GENERATION (test code 2.490 UIU/ML = 2821) HEMOGLOBIN [id number] 00:00:00 Test Item Value Reference Range Interpretation Comments HEMOGLOBIN A1c (test code = 19476) 6.4 % HEMOGLOBIN [id number] 00:00:00 Test Item Value Reference Range Interpretation Comments HEMOGLOBIN A1c (test code = 28550) 6.4 % HEMOGLOBIN [id number] 00:00:00 Test Item Value Reference Range Interpretation Comments HEMOGLOBIN A1c (test code = 10449) 6.4 % COMPREHENSIVE METABOLIC [id number] 00:00:00 Test Item Value Reference Range Interpretation Comments GLUCOSE (test code = 2217) 206 MG/DL BUN (test code = 2208) 23 MG/DL CREATININE (test code = 2214) 0.67 MG/DL eGFR AMER. (test code 112 ML/MIN/1.73 = 59737) eGFR NON- AMER. (test 97 ML/MIN/1.73 code = 25997) CALC BUN/CREAT (test code = 34 RATIO [...] code = 2219) 25 U/L COMPREHENSIVE METABOLIC [id number] 00:00:00 Test Item Value Reference Range Interpretation Comments GLUCOSE (test code = 2217) 206 MG/DL BUN (test code = 2208) 23 MG/DL CREATININE (test code = 2214) 0.67 MG/DL eGFR AMER. (test code 112 ML/MIN/1.73 = 04615) eGFR NON- AMER. (test 97 ML/MIN/1.73 code = 20599) CALC BUN/CREAT (test code = 34 RATIO [...] ALT (test code = 2219) 25 U/L [id number] 00:00:00 Test Item Value Reference Range Interpretation Comments TSH, THIRD GENERATION (test code 2.490 UIU/ML = 2821) [id number] 00:00:00 Test Item Value Reference Range Interpretation Comments TSH, THIRD GENERATION (test code 2.490 UIU/ML = 2821) [id number] 00:00:00 Test Item Value Reference Range Interpretation Comments TSH, THIRD GENERATION (test code 2.490 UIU/ML = 2821) HEMOGLOBIN [id number] 00:00:00 Test Item Value Reference Range Interpretation Comments HEMOGLOBIN A1c (test code = 65916) 6.4 % HEMOGLOBIN [id number] 00:00:00 Test Item Value Reference Range Interpretation Comments HEMOGLOBIN A1c (test code = 86957) 6.4 % HEMOGLOBIN [id number] 00:00:00 Test Item Value Reference Range Interpretation Comments HEMOGLOBIN A1c (test code = 11998) 6.4 % COMPREHENSIVE METABOLIC [id number] 00:00:00 Test Item Value Reference Range Interpretation Comments GLUCOSE (test code = 2217) 206 MG/DL BUN (test code = 2208) 23 MG/DL CREATININE (test code = 2214) 0.67 MG/DL eGFR AMER. (test code 112 ML/MIN/1.73 = 75294) eGFR NON- AMER. (test 97 ML/MIN/1.73 code = 82582) CALC BUN/CREAT (test code = 34 RATIO [...] code = 2219) 25 U/L COMPREHENSIVE METABOLIC [id number] 00:00:00 Test Item Value Reference Range Interpretation Comments GLUCOSE (test code = 2217) 206 MG/DL BUN (test code = 2208) 23 MG/DL CREATININE (test code = 2214) 0.67 MG/DL eGFR AMER. (test code 112 ML/MIN/1.73 = 13233) eGFR NON- AMER. (test 97 ML/MIN/1.73 code = 37894) CALC BUN/CREAT (test code = 34 RATIO [...] ALT (test code = 2219) 25 U/L [id number] 00:00:00 Test Item Value Reference Range Interpretation Comments TSH, THIRD GENERATION (test code 2.490 UIU/ML = 2821) [id number] 00:00:00 Test Item Value Reference Range Interpretation Comments TSH, THIRD GENERATION (test code 2.490 UIU/ML = 2821) HEMOGLOBIN [id number] 00:00:00 Test Item Value Reference Range Interpretation Comments HEMOGLOBIN A1c (test code = 77648) 6.4 % HEMOGLOBIN [id number] 00:00:00 Test Item Value Reference Range Interpretation Comments HEMOGLOBIN A1c (test code = 27616) 6.4 % COMPREHENSIVE METABOLIC [id number] 00:00:00 Test Item Value Reference Range Interpretation Comments GLUCOSE (test code = 2217) 206 MG/DL BUN (test code = 2208) 23 MG/DL CREATININE (test code = 2214) 0.67 MG/DL eGFR AMER. (test code 112 ML/MIN/1.73 = 48596) eGFR NON- AMER. (test 97 ML/MIN/1.73 code = 07681) CALC BUN/CREAT (test code = 34 RATIO [...] ALT (test code = 2219) 25 U/L [id number] 00:00:00 Test Item Value Reference Range Interpretation Comments TSH, THIRD GENERATION (test code 2.490 UIU/ML = 2821) [id number] 00:00:00 Test Item Value Reference Range Interpretation Comments TSH, THIRD GENERATION (test code 2.490 UIU/ML = 2821) [id number] 00:00:00 Test Item Value Reference Range Interpretation Comments TSH, THIRD GENERATION (test code 2.490 UIU/ML = 2821) HEMOGLOBIN [id number] 00:00:00 Test Item Value Reference Range Interpretation Comments HEMOGLOBIN A1c (test code = 88352) 6.4 % HEMOGLOBIN [id number] 00:00:00 Test Item Value Reference Range Interpretation Comments HEMOGLOBIN A1c (test code = 27812) 6.4 % HEMOGLOBIN [id number] 00:00:00 Test Item Value Reference Range Interpretation Comments HEMOGLOBIN A1c (test code = 11083) 6.4 % COMPREHENSIVE METABOLIC [id number] 00:00:00 Test Item Value Reference Range Interpretation Comments GLUCOSE (test code = 2217) 206 MG/DL BUN (test code = 2208) 23 MG/DL CREATININE (test code = 2214) 0.67 MG/DL eGFR AMER. (test code 112 ML/MIN/1.73 = 89875) eGFR NON- AMER. (test 97 ML/MIN/1.73 code = 78441) CALC BUN/CREAT (test code = 34 RATIO [...] code = 2219) 25 U/L COMPREHENSIVE METABOLIC [id number] 00:00:00 Test Item Value Reference Range Interpretation Comments GLUCOSE (test code = 2217) 206 MG/DL BUN (test code = 2208) 23 MG/DL CREATININE (test code = 2214) 0.67 MG/DL eGFR AMER. (test code 112 ML/MIN/1.73 = 35106) eGFR NON- AMER. (test 97 ML/MIN/1.73 code = 93564) CALC BUN/CREAT (test code = 34 RATIO [...] = 2219) 25 U/L VAGINAL PATHOGENS DNA [id number] 00:00:00 Test Item Value Reference Range Interpretation Comments MARK SPECIES (test code = ) NEGATIVE G. VAGINALIS (test code = 68735) NEGATIVE T. VAGINALIS (test code = 87563) NEGATIVE VAGINAL PATHOGENS DNA [id number] 00:00:00 Test Item Value Reference Range Interpretation Comments MARK SPECIES (test code = 55890) NEGATIVE G. VAGINALIS (test code = 48910) NEGATIVE T. VAGINALIS (test code = 54851) NEGATIVE VAGINAL PATHOGENS DNA [id number] 00:00:00 Test Item Value Reference Range Interpretation Comments MARK SPECIES (test code = 77711) NEGATIVE G. VAGINALIS (test code = 08962) NEGATIVE T. VAGINALIS (test code = 55093) NEGATIVE VAGINAL PATHOGENS DNA [id number] 00:00:00 Test Item Value Reference Range Interpretation Comments MARK SPECIES (test code = 40099) NEGATIVE G. VAGINALIS (test code = 69040) NEGATIVE T. VAGINALIS (test code = 80758) NEGATIVE VAGINAL PATHOGENS DNA [id number] 00:00:00 Test Item Value Reference Range Interpretation Comments MARK SPECIES (test code = 92122) NEGATIVE G. VAGINALIS (test code = 76312) NEGATIVE T. VAGINALIS (test code = 90699) NEGATIVE VAGINAL PATHOGENS DNA [id number] 00:00:00 Test Item Value Reference Range Interpretation Comments MARK SPECIES (test code = ) NEGATIVE G. VAGINALIS (test code = 83213) NEGATIVE T. VAGINALIS (test code = 84413) NEGATIVE VAGINAL PATHOGENS DNA [id number] 00:00:00 Test Item Value Reference Range Interpretation Comments MARK SPECIES (test code = ) NEGATIVE G. VAGINALIS (test code = 12027) NEGATIVE T. VAGINALIS (test code = 24740) NEGATIVE HEMOGLOBIN A1c [ADDED]2018-12-01 00:00:00 Test Item Value Reference Range Interpretation Comments HEMOGLOBIN A1c (test code = 35865) 6.7 % HEMOGLOBIN A1c [ADDED]2018-12-01 00:00:00 Test Item Value Reference Range Interpretation Comments HEMOGLOBIN A1c (test code = 16246) 6.7 % HEMOGLOBIN A1c [ADDED]2018-12-01 00:00:00 Test Item Value Reference Range Interpretation Comments HEMOGLOBIN A1c (test code = 79913) 6.7 % COMPREHENSIVE METABOLIC PANEL [ADDED]2018-12-01 00:00:00 Test Item Value Reference Range Interpretation Comments GLUCOSE (test code = 2217) 136 MG/DL BUN (test code = 2208) 15 MG/DL CREATININE (test code = 2214) 0.64 MG/DL eGFR AMER. (test code 115 ML/MIN/1.73 = 14527) eGFR NON- AMER. (test 99 ML/MIN/1.73 code = 40176) CALC BUN/CREAT (test code = 23 RATIO [...] eGFR AMER. (test code 115 ML/MIN/1.73 = 55049) eGFR NON- AMER. (test 99 ML/MIN/1.73 code = 34498) CALC BUN/CREAT (test code = 23 RATIO [...] Interpretation Comments HEMOGLOBIN A1c (test code = 87425) 6.7 % HEMOGLOBIN A1c [ADDED]2018-12-01 00:00:00 Test Item Value Reference Range Interpretation Comments HEMOGLOBIN A1c (test code = 95475) 6.7 % HEMOGLOBIN A1c [ADDED]2018-12-01 00:00:00 Test Item Value Reference Range Interpretation Comments HEMOGLOBIN A1c (test code = 20866) 6.7 % COMPREHENSIVE METABOLIC PANEL [ADDED]2018-12-01 00:00:00 Test Item Value Reference Range Interpretation Comments GLUCOSE (test code = 2217) 136 MG/DL BUN (test code = 2208) 15 MG/DL CREATININE (test code = 2214) 0.64 MG/DL eGFR AMER. (test code 115 ML/MIN/1.73 = 54107) eGFR NON- AMER. (test 99 ML/MIN/1.73 code = 00007) CALC BUN/CREAT (test code = 23 RATIO [...] eGFR AMER. (test code 115 ML/MIN/1.73 = 99543) eGFR NON- AMER. (test 99 ML/MIN/1.73 code = 18771) CALC BUN/CREAT (test code = 23 RATIO [...] Interpretation Comments HEMOGLOBIN A1c (test code = 44739) 6.7 % HEMOGLOBIN A1c [ADDED]2018-12-01 00:00:00 Test Item Value Reference Range Interpretation Comments HEMOGLOBIN A1c (test code = 72983) 6.7 % COMPREHENSIVE METABOLIC PANEL [ADDED]2018-12-01 00:00:00 Test Item Value Reference Range Interpretation Comments GLUCOSE (test code = 2217) 136 MG/DL BUN (test code = 2208) 15 MG/DL CREATININE (test code = 2214) 0.64 MG/DL eGFR AMER. (test code 115 ML/MIN/1.73 = 17083) eGFR NON- AMER. (test 99 ML/MIN/1.73 code = 15341) CALC BUN/CREAT (test code = 23 RATIO [...] Interpretation Comments HEMOGLOBIN A1c (test code = 63305) 6.7 % HEMOGLOBIN A1c [ADDED]2018-12-01 00:00:00 Test Item Value Reference Range Interpretation Comments HEMOGLOBIN A1c (test code = 50541) 6.7 % HEMOGLOBIN A1c [ADDED]2018-12-01 00:00:00 Test Item Value Reference Range Interpretation Comments HEMOGLOBIN A1c (test code = 76253) 6.7 % COMPREHENSIVE METABOLIC PANEL [ADDED]2018-12-01 00:00:00 Test Item Value Reference Range Interpretation Comments GLUCOSE (test code = 2217) 136 MG/DL BUN (test code = 2208) 15 MG/DL CREATININE (test code = 2214) 0.64 MG/DL eGFR AMER. (test code 115 ML/MIN/1.73 = 17716) eGFR NON- AMER. (test 99 ML/MIN/1.73 code = 64948) CALC BUN/CREAT (test code = 23 RATIO [...] eGFR AMER. (test code 115 ML/MIN/1.73 = 89854) eGFR NON- AMER. (test 99 ML/MIN/1.73 code = 16652) CALC BUN/CREAT (test code = 23 RATIO [...] code 1.280 UIU/ML = 2821) CBC W/AUTO [id number] 00:00:00 Test Item Value Reference Range Interpretation [...] code = 1015) 346 K/UL CBC W/AUTO [id number] 00:00:00 Test Item Value Reference Range Interpretation [...] code = 1015) 346 K/UL CBC W/AUTO [id number] 00:00:00 Test Item Value Reference Range Interpretation [...] (test code = 1015) 346 K/UL HEMOGLOBIN [id number] 00:00:00 Test Item Value Reference Range Interpretation Comments HEMOGLOBIN A1c (test code = 13256) 5.9 % HEMOGLOBIN [id number] 00:00:00 Test Item Value Reference Range Interpretation Comments HEMOGLOBIN A1c (test code = 52092) 5.9 % HEMOGLOBIN [id number] 00:00:00 Test Item Value Reference Range Interpretation Comments HEMOGLOBIN A1c (test code = 99392) 5.9 % LIPID [id number] 00:00:00 Test Item Value Reference Range Interpretation Comments CHOLESTEROL (test code = 2210) 318 MG/DL TRIGLYCERIDES (test code = 2232) 263 MG/DL HDL CHOLESTEROL (test code = 2220) 51 MG/DL CALC LDL CHOL (test code = 2237) 214 MG/DL RISK RATIO LDL/HDL (test code = 4.20 RATIO 2238) LIPID [id number] 00:00:00 Test Item Value Reference Range Interpretation Comments CHOLESTEROL (test code = 2210) 318 MG/DL TRIGLYCERIDES (test code = 2232) 263 MG/DL HDL CHOLESTEROL (test code = 2220) 51 MG/DL CALC LDL CHOL (test code = 2237) 214 MG/DL RISK RATIO LDL/HDL (test code = 4.20 RATIO 2238) COMPREHENSIVE METABOLIC [id number] 00:00:00 Test Item Value Reference Range Interpretation Comments GLUCOSE (test code = 2217) 113 MG/DL BUN (test code = 2208) 18 MG/DL CREATININE (test code = 2214) 0.70 MG/DL eGFR AMER. (test code 111 ML/MIN/1.73 = 05202) eGFR NON- AMER. (test 96 ML/MIN/1.73 code = 51934) CALC BUN/CREAT (test code = 26 RATIO [...] code = 2219) 31 U/L COMPREHENSIVE METABOLIC [id number] 00:00:00 Test Item Value Reference Range Interpretation Comments GLUCOSE (test code = 2217) 113 MG/DL BUN (test code = 2208) 18 MG/DL CREATININE (test code = 2214) 0.70 MG/DL eGFR AMER. (test code 111 ML/MIN/1.73 = 83489) eGFR NON- AMER. (test 96 ML/MIN/1.73 code = 74579) CALC BUN/CREAT (test code = 26 RATIO [...] ALT (test code = 2219) 31 U/L [id number] 00:00:00 Test Item Value Reference Range Interpretation Comments TSH, THIRD GENERATION (test code 2.520 UIU/ML = 2821) [id number] 00:00:00 Test Item Value Reference Range Interpretation Comments TSH, THIRD GENERATION (test code 2.520 UIU/ML = 2821) [id number] 00:00:00 Test Item Value Reference Range Interpretation Comments TSH, THIRD GENERATION (test code 2.520 UIU/ML = 2821) CBC W/AUTO [id number] 00:00:00 Test Item Value Reference Range Interpretation [...] code = 1015) 346 K/UL CBC W/AUTO [id number] 00:00:00 Test Item Value Reference Range Interpretation [...] code = 1015) 346 K/UL CBC W/AUTO [id number] 00:00:00 Test Item Value Reference Range Interpretation [...] (test code = 1015) 346 K/UL HEMOGLOBIN [id number] 00:00:00 Test Item Value Reference Range Interpretation Comments HEMOGLOBIN A1c (test code = 07167) 5.9 % HEMOGLOBIN [id number] 00:00:00 Test Item Value Reference Range Interpretation Comments HEMOGLOBIN A1c (test code = 69641) 5.9 % HEMOGLOBIN [id number] 00:00:00 Test Item Value Reference Range Interpretation Comments HEMOGLOBIN A1c (test code = 56511) 5.9 % LIPID [id number] 00:00:00 Test Item Value Reference Range Interpretation Comments CHOLESTEROL (test code = 2210) 318 MG/DL TRIGLYCERIDES (test code = 2232) 263 MG/DL HDL CHOLESTEROL (test code = 2220) 51 MG/DL CALC LDL CHOL (test code = 2237) 214 MG/DL RISK RATIO LDL/HDL (test code = 4.20 RATIO 2238) LIPID [id number] 00:00:00 Test Item Value Reference Range Interpretation Comments CHOLESTEROL (test code = 2210) 318 MG/DL TRIGLYCERIDES (test code = 2232) 263 MG/DL HDL CHOLESTEROL (test code = 2220) 51 MG/DL CALC LDL CHOL (test code = 2237) 214 MG/DL RISK RATIO LDL/HDL (test code = 4.20 RATIO 2238) COMPREHENSIVE METABOLIC [id number] 00:00:00 Test Item Value Reference Range Interpretation Comments GLUCOSE (test code = 2217) 113 MG/DL BUN (test code = 2208) 18 MG/DL CREATININE (test code = 2214) 0.70 MG/DL eGFR AMER. (test code 111 ML/MIN/1.73 = 11942) eGFR NON- AMER. (test 96 ML/MIN/1.73 code = 45711) CALC BUN/CREAT (test code = 26 RATIO [...] code = 2219) 31 U/L COMPREHENSIVE METABOLIC [id number] 00:00:00 Test Item Value Reference Range Interpretation Comments GLUCOSE (test code = 2217) 113 MG/DL BUN (test code = 2208) 18 MG/DL CREATININE (test code = 2214) 0.70 MG/DL eGFR AMER. (test code 111 ML/MIN/1.73 = 50727) eGFR NON- AMER. (test 96 ML/MIN/1.73 code = 06182) CALC BUN/CREAT (test code = 26 RATIO [...] = <0.2 MG/DL 7) ALKALINE PHOSPHATASE (test 80 U/L code = 2204) AST (test code = 2218) 21 U/L ALT (test code = 2219) 31 U/L [id number] 00:00:00 Test Item Value Reference Range Interpretation Comments TSH, THIRD GENERATION (test code 2.520 UIU/ML = 2821) [id number] 00:00:00 Test Item Value Reference Range Interpretation Comments TSH, THIRD GENERATION (test code 2.520 UIU/ML = 2821) [id number] 00:00:00 Test Item Value Reference Range Interpretation Comments TSH, THIRD GENERATION (test code 2.520 UIU/ML = 2821) CBC W/AUTO [id number] 00:00:00 Test Item Value Reference Range Interpretation [...] code = 1015) 346 K/UL CBC W/AUTO [id number] 00:00:00 Test Item Value Reference Range Interpretation [...] (test code = 1015) 346 K/UL HEMOGLOBIN [id number] 00:00:00 Test Item Value Reference Range Interpretation Comments HEMOGLOBIN A1c (test code = 63916) 5.9 % HEMOGLOBIN [id number] 00:00:00 Test Item Value Reference Range Interpretation Comments HEMOGLOBIN A1c (test code = 29656) 5.9 % LIPID [id number] 00:00:00 Test Item Value Reference Range Interpretation Comments CHOLESTEROL (test code = 2210) 318 MG/DL TRIGLYCERIDES (test code = 2232) 263 MG/DL HDL CHOLESTEROL (test code = 2220) 51 MG/DL CALC LDL CHOL (test code = 2237) 214 MG/DL RISK RATIO LDL/HDL (test code = 4.20 RATIO 2238) COMPREHENSIVE METABOLIC [id number] 00:00:00 Test Item Value Reference Range Interpretation Comments GLUCOSE (test code = 2217) 113 MG/DL BUN (test code = 2208) 18 MG/DL CREATININE (test code = 2214) 0.70 MG/DL eGFR AMER. (test code 111 ML/MIN/1.73 = 90210) eGFR NON- AMER. (test 96 ML/MIN/1.73 code = 98841) CALC BUN/CREAT (test code = 26 RATIO [...] ALT (test code = 2219) 31 U/L [id number] 00:00:00 Test Item Value Reference Range Interpretation Comments TSH, THIRD GENERATION (test code 2.520 UIU/ML = 2821) [id number] 00:00:00 Test Item Value Reference Range Interpretation Comments TSH, THIRD GENERATION (test code 2.520 UIU/ML = 2821) CBC W/AUTO [id number] 00:00:00 Test Item Value Reference Range Interpretation [...] code = 1015) 346 K/UL CBC W/AUTO [id number] 00:00:00 Test Item Value Reference Range Interpretation [...] code = 1015) 346 K/UL CBC W/AUTO [id number] 00:00:00 Test Item Value Reference Range Interpretation [...] (test code = 1015) 346 K/UL HEMOGLOBIN [id number] 00:00:00 Test Item Value Reference Range Interpretation Comments HEMOGLOBIN A1c (test code = 62925) 5.9 % HEMOGLOBIN [id number] 00:00:00 Test Item Value Reference Range Interpretation Comments HEMOGLOBIN A1c (test code = 27164) 5.9 % HEMOGLOBIN [id number] 00:00:00 Test Item Value Reference Range Interpretation Comments HEMOGLOBIN A1c (test code = 25594) 5.9 % LIPID [id number] 00:00:00 Test Item Value Reference Range Interpretation Comments CHOLESTEROL (test code = 2210) 318 MG/DL TRIGLYCERIDES (test code = 2232) 263 MG/DL HDL CHOLESTEROL (test code = 2220) 51 MG/DL CALC LDL CHOL (test code = 2237) 214 MG/DL RISK RATIO LDL/HDL (test code = 4.20 RATIO 2238) LIPID [id number] 00:00:00 Test Item Value Reference Range Interpretation Comments CHOLESTEROL (test code = 2210) 318 MG/DL TRIGLYCERIDES (test code = 2232) 263 MG/DL HDL CHOLESTEROL (test code = 2220) 51 MG/DL CALC LDL CHOL (test code = 2237) 214 MG/DL RISK RATIO LDL/HDL (test code = 4.20 RATIO 2238) COMPREHENSIVE METABOLIC [id number] 00:00:00 Test Item Value Reference Range Interpretation Comments GLUCOSE (test code = 2217) 113 MG/DL BUN (test code = 2208) 18 MG/DL CREATININE (test code = 2214) 0.70 MG/DL eGFR AMER. (test code 111 ML/MIN/1.73 = 67569) eGFR NON- AMER. (test 96 ML/MIN/1.73 code = 87082) CALC BUN/CREAT (test code = 26 RATIO [...] code = 2219) 31 U/L COMPREHENSIVE METABOLIC [id number] 00:00:00 Test Item Value Reference Range Interpretation Comments GLUCOSE (test code = 2217) 113 MG/DL BUN (test code = 2208) 18 MG/DL CREATININE (test code = 2214) 0.70 MG/DL eGFR AMER. (test code 111 ML/MIN/1.73 = 55580) eGFR NON- AMER. (test 96 ML/MIN/1.73 code = 87074) CALC BUN/CREAT (test code = 26 RATIO [...] ALT (test code = 2219) 31 U/L [id number] 00:00:00 Test Item Value Reference Range Interpretation Comments TSH, THIRD GENERATION (test code 2.520 UIU/ML = 2821) [id number] 00:00:00 Test Item Value Reference Range Interpretation Comments TSH, THIRD GENERATION (test code 2.520 UIU/ML = 2821) [id number] 00:00:00 Test Item Value Reference Range Interpretation Comments TSH, THIRD GENERATION (test code 2.520 UIU/ML = 2821) CULTURE, [id number] 00:00:00 Test Item Value Reference Range Interpretation Comments CULTURE, URINE (test SPECIMEN NUMBER: code = 04298) [id number] CULTURE, [id number] 00:00:00 Test Item Value Reference Range Interpretation Comments CULTURE, URINE (test SPECIMEN NUMBER: code = 80622) [id number] CULTURE, [id number] 00:00:00 Test Item Value Reference Range Interpretation Comments CULTURE, URINE (test SPECIMEN NUMBER: code = 99698) [id number] CULTURE, [id number] 00:00:00 Test Item Value Reference Range Interpretation Comments CULTURE, URINE (test SPECIMEN NUMBER: code = 94250) [id number] CULTURE, [id number] 00:00:00 Test Item Value Reference Range Interpretation Comments CULTURE, URINE (test SPECIMEN NUMBER: code = 91937) [id number] CULTURE, [id number] 00:00:00 Test Item Value Reference Range Interpretation Comments CULTURE, URINE (test SPECIMEN NUMBER: code = 90917) [id number] CULTURE, [id number] 00:00:00 Test Item Value Reference Range Interpretation Comments CULTURE, URINE (test SPECIMEN NUMBER: code = 21810) [id number] CULTURE, [id number] 00:00:00 Test Item Value Reference Range Interpretation Comments CULTURE, URINE (test SPECIMEN NUMBER: code = 40704) [id number] CULTURE, [id number] 00:00:00 Test Item Value Reference Range Interpretation Comments CULTURE, URINE (test SPECIMEN NUMBER: code = 17349) [id number] CULTURE, [id number] 00:00:00 Test Item Value Reference Range Interpretation Comments CULTURE, URINE (test SPECIMEN NUMBER: code = 63423) [id number] CULTURE, [id number] 00:00:00 Test Item Value Reference Range Interpretation Comments CULTURE, URINE (test SPECIMEN NUMBER: code = 44428) [id number] CULTURE, [id number] 00:00:00 Test Item Value Reference Range Interpretation Comments CULTURE, URINE (test SPECIMEN NUMBER: code = 06628) [id number] CULTURE, [id number] 00:00:00 Test Item Value Reference Range Interpretation Comments CULTURE, URINE (test SPECIMEN NUMBER: code = 68206) [id number] CULTURE, [id number] 00:00:00 Test Item Value Reference Range Interpretation Comments CULTURE, URINE (test SPECIMEN NUMBER: code = 69487) [id number] BASIC METABOLIC [id number] 00:00:00 Test Item Value Reference Range Interpretation Comments GLUCOSE (test code = 2217) 135 MG/DL BUN (test code = 2208) 25 MG/DL CREATININE (test code = 2214) 0.76 MG/DL eGFR AMER. (test code 101 ML/MIN/1.73 = 90141) eGFR NON- AMER. (test 87 ML/MIN/1.73 code = 99105) SODIUM (test code = 2231) 139 MEQ/L POTASSIUM (test code = 2228) 4.7 MEQ/L CHLORIDE (test code = 2215) 99 MEQ/L CARBON DIOXIDE (test code = 26 MEQ/L 2206) CALCIUM (test code = 2209) 9.4 MG/DL BASIC METABOLIC [id number] 00:00:00 Test Item Value Reference Range Interpretation Comments GLUCOSE (test code = 2217) 135 MG/DL BUN (test code = 2208) 25 MG/DL CREATININE (test code = 2214) 0.76 MG/DL eGFR AMER. (test code 101 ML/MIN/1.73 = 88691) eGFR NON- AMER. (test 87 ML/MIN/1.73 code = 69236) SODIUM (test code = 2231) 139 MEQ/L POTASSIUM (test code = 2228) 4.7 MEQ/L CHLORIDE (test code = 2215) 99 MEQ/L CARBON DIOXIDE (test code = 26 MEQ/L 2206) CALCIUM (test code = 2209) 9.4 MG/DL LIPID [id number] 00:00:00 Test Item Value Reference Range Interpretation Comments CHOLESTEROL (test code = 2210) 262 MG/DL TRIGLYCERIDES (test code = 2232) 300 MG/DL HDL CHOLESTEROL (test code = 2220) 36 MG/DL CALC LDL CHOL (test code = 2237) 166 MG/DL RISK RATIO LDL/HDL (test code = 4.61 RATIO 2238) LIPID [id number] 00:00:00 Test Item Value Reference Range Interpretation Comments CHOLESTEROL (test code = 2210) 262 MG/DL TRIGLYCERIDES (test code = 2232) 300 MG/DL HDL CHOLESTEROL (test code = 2220) 36 MG/DL CALC LDL CHOL (test code = 2237) 166 MG/DL RISK RATIO LDL/HDL (test code = 4.61 RATIO 2238) HEMOGLOBIN [id number] 00:00:00 Test Item Value Reference Range Interpretation Comments HEMOGLOBIN A1c (test code = 57301) 6.2 % HEMOGLOBIN [id number] 00:00:00 Test Item Value Reference Range Interpretation Comments HEMOGLOBIN A1c (test code = 74759) 6.2 % HEMOGLOBIN [id number] 00:00:00 Test Item Value Reference Range Interpretation Comments HEMOGLOBIN A1c (test code = 20276) 6.2 % [id number] 00:00:00 Test Item Value Reference Range Interpretation Comments TSH, THIRD GENERATION (test code 0.988 UIU/ML = 2821) [id number] 00:00:00 Test Item Value Reference Range Interpretation Comments TSH, THIRD GENERATION (test code 0.988 UIU/ML = 2821) [id number] 00:00:00 Test Item Value Reference Range Interpretation Comments TSH, THIRD GENERATION (test code 0.988 UIU/ML = 2821) BASIC METABOLIC [id number] 00:00:00 Test Item Value Reference Range Interpretation Comments GLUCOSE (test code = 2217) 135 MG/DL BUN (test code = 2208) 25 MG/DL CREATININE (test code = 2214) 0.76 MG/DL eGFR AMER. (test code 101 ML/MIN/1.73 = 21142) eGFR NON- AMER. (test 87 ML/MIN/1.73 code = 76073) SODIUM (test code = 2231) 139 MEQ/L POTASSIUM (test code = 2228) 4.7 MEQ/L CHLORIDE (test code = 2215) 99 MEQ/L CARBON DIOXIDE (test code = 26 MEQ/L 2206) CALCIUM (test code = 2209) 9.4 MG/DL BASIC METABOLIC [id number] 00:00:00 Test Item Value Reference Range Interpretation Comments GLUCOSE (test code = 2217) 135 MG/DL BUN (test code = 2208) 25 MG/DL CREATININE (test code = 2214) 0.76 MG/DL eGFR AMER. (test code 101 ML/MIN/1.73 = 44205) eGFR NON- AMER. (test 87 ML/MIN/1.73 code = 23034) SODIUM (test code = 2231) 139 MEQ/L POTASSIUM (test code = 2228) 4.7 MEQ/L CHLORIDE (test code = 2215) 99 MEQ/L CARBON DIOXIDE (test code = 26 MEQ/L 2206) CALCIUM (test code = 2209) 9.4 MG/DL LIPID [id number] 00:00:00 Test Item Value Reference Range Interpretation Comments CHOLESTEROL (test code = 2210) 262 MG/DL TRIGLYCERIDES (test code = 2232) 300 MG/DL HDL CHOLESTEROL (test code = 2220) 36 MG/DL CALC LDL CHOL (test code = 2237) 166 MG/DL RISK RATIO LDL/HDL (test code = 4.61 RATIO 2238) LIPID [id number] 00:00:00 Test Item Value Reference Range Interpretation Comments CHOLESTEROL (test code = 2210) 262 MG/DL TRIGLYCERIDES (test code = 2232) 300 MG/DL HDL CHOLESTEROL (test code = 2220) 36 MG/DL CALC LDL CHOL (test code = 2237) 166 MG/DL RISK RATIO LDL/HDL (test code = 4.61 RATIO 2238) HEMOGLOBIN [id number] 00:00:00 Test Item Value Reference Range Interpretation Comments HEMOGLOBIN A1c (test code = 75296) 6.2 % HEMOGLOBIN [id number] 00:00:00 Test Item Value Reference Range Interpretation Comments HEMOGLOBIN A1c (test code = 96303) 6.2 % HEMOGLOBIN [id number] 00:00:00 Test Item Value Reference Range Interpretation Comments HEMOGLOBIN A1c (test code = 72446) 6.2 % [id number] 00:00:00 Test Item Value Reference Range Interpretation Comments TSH, THIRD GENERATION (test code 0.988 UIU/ML = 2821) [id number] 00:00:00 Test Item Value Reference Range Interpretation Comments TSH, THIRD GENERATION (test code 0.988 UIU/ML = 2821) [id number] 00:00:00 Test Item Value Reference Range Interpretation Comments TSH, THIRD GENERATION (test code 0.988 UIU/ML = 2821) BASIC METABOLIC [id number] 00:00:00 Test Item Value Reference Range Interpretation Comments GLUCOSE (test code = 2217) 135 MG/DL BUN (test code = 2208) 25 MG/DL CREATININE (test code = 2214) 0.76 MG/DL eGFR AMER. (test code 101 ML/MIN/1.73 = 17632) eGFR NON- AMER. (test 87 ML/MIN/1.73 code = 50655) SODIUM (test code = 2231) 139 MEQ/L POTASSIUM (test code = 2228) 4.7 MEQ/L CHLORIDE (test code = 2215) 99 MEQ/L CARBON DIOXIDE (test code = 26 MEQ/L 2206) CALCIUM (test code = 2209) 9.4 MG/DL LIPID [id number] 00:00:00 Test Item Value Reference Range Interpretation Comments CHOLESTEROL (test code = 2210) 262 MG/DL TRIGLYCERIDES (test code = 2232) 300 MG/DL HDL CHOLESTEROL (test code = 2220) 36 MG/DL CALC LDL CHOL (test code = 2237) 166 MG/DL RISK RATIO LDL/HDL (test code = 4.61 RATIO 2238) HEMOGLOBIN [id number] 00:00:00 Test Item Value Reference Range Interpretation Comments HEMOGLOBIN A1c (test code = 27417) 6.2 % HEMOGLOBIN [id number] 00:00:00 Test Item Value Reference Range Interpretation Comments HEMOGLOBIN A1c (test code = 42827) 6.2 % [id number] 00:00:00 Test Item Value Reference Range Interpretation Comments TSH, THIRD GENERATION (test code 0.988 UIU/ML = 2821) [id number] 00:00:00 Test Item Value Reference Range Interpretation Comments TSH, THIRD GENERATION (test code 0.988 UIU/ML = 2821) BASIC METABOLIC [id number] 00:00:00 Test Item Value Reference Range Interpretation Comments GLUCOSE (test code = 2217) 135 MG/DL BUN (test code = 2208) 25 MG/DL CREATININE (test code = 2214) 0.76 MG/DL eGFR AMER. (test code 101 ML/MIN/1.73 = 36327) eGFR NON- AMER. (test 87 ML/MIN/1.73 code = 65987) SODIUM (test code = 2231) 139 MEQ/L POTASSIUM (test code = 2228) 4.7 MEQ/L CHLORIDE (test code = 2215) 99 MEQ/L CARBON DIOXIDE (test code = 26 MEQ/L 2206) CALCIUM (test code = 2209) 9.4 MG/DL BASIC METABOLIC [id number] 00:00:00 Test Item Value Reference Range Interpretation Comments GLUCOSE (test code = 2217) 135 MG/DL BUN (test code = 2208) 25 MG/DL CREATININE (test code = 2214) 0.76 MG/DL eGFR AMER. (test code 101 ML/MIN/1.73 = 86059) eGFR NON- AMER. (test 87 ML/MIN/1.73 code = 29287) SODIUM (test code = 2231) 139 MEQ/L POTASSIUM (test code = 2228) 4.7 MEQ/L CHLORIDE (test code = 2215) 99 MEQ/L CARBON DIOXIDE (test code = 26 MEQ/L 2206) CALCIUM (test code = 2209) 9.4 MG/DL LIPID [id number] 00:00:00 Test Item Value Reference Range Interpretation Comments CHOLESTEROL (test code = 2210) 262 MG/DL TRIGLYCERIDES (test code = 2232) 300 MG/DL HDL CHOLESTEROL (test code = 2220) 36 MG/DL CALC LDL CHOL (test code = 2237) 166 MG/DL RISK RATIO LDL/HDL (test code = 4.61 RATIO 2238) LIPID [id number] 00:00:00 Test Item Value Reference Range Interpretation Comments CHOLESTEROL (test code = 2210) 262 MG/DL TRIGLYCERIDES (test code = 2232) 300 MG/DL HDL CHOLESTEROL (test code = 2220) 36 MG/DL CALC LDL CHOL (test code = 2237) 166 MG/DL RISK RATIO LDL/HDL (test code = 4.61 RATIO 2238) HEMOGLOBIN [id number] 00:00:00 Test Item Value Reference Range Interpretation Comments HEMOGLOBIN A1c (test code = 72636) 6.2 % HEMOGLOBIN [id number] 00:00:00 Test Item Value Reference Range Interpretation Comments HEMOGLOBIN A1c (test code = 33040) 6.2 % HEMOGLOBIN [id number] 00:00:00 Test Item Value Reference Range Interpretation Comments HEMOGLOBIN A1c (test code = 88801) 6.2 % [id number] 00:00:00 Test Item Value Reference Range Interpretation Comments TSH, THIRD GENERATION (test code 0.988 UIU/ML = 2821) [id number] 00:00:00 Test Item Value Reference Range Interpretation Comments TSH, THIRD GENERATION (test code 0.988 UIU/ML = 2821) [id number] 00:00:00 Test Item Value Reference Range Interpretation Comments TSH, THIRD GENERATION (test code 0.988 UIU/ML = 2821) COMPREHENSIVE METABOLIC [id number] 00:00:00 Test Item Value Reference Range Interpretation Comments GLUCOSE (test code = 2217) 109 MG/DL BUN (test code = 2208) 25 MG/DL CREATININE (test code = 2214) 0.78 MG/DL eGFR AMER. (test code 98 ML/MIN/1.73 = 70105) eGFR NON- AMER. (test 84 ML/MIN/1.73 code = 47108) CALC BUN/CREAT (test code = 32 RATIO [...] code = 2219) 25 U/L COMPREHENSIVE METABOLIC [id number] 00:00:00 Test Item Value Reference Range Interpretation Comments GLUCOSE (test code = 2217) 109 MG/DL BUN (test code = 2208) 25 MG/DL CREATININE (test code = 2214) 0.78 MG/DL eGFR AMER. (test code 98 ML/MIN/1.73 = 22238) eGFR NON- AMER. (test 84 ML/MIN/1.73 code = 48506) CALC BUN/CREAT (test code = 32 RATIO [...] (test code = 2219) 25 U/L LIPID [id number] 00:00:00 Test Item Value Reference Range Interpretation Comments CHOLESTEROL (test code = 2210) 295 MG/DL TRIGLYCERIDES (test code = 2232) 218 MG/DL HDL CHOLESTEROL (test code = 2220) 46 MG/DL CALC LDL CHOL (test code = 2237) 205 MG/DL RISK RATIO LDL/HDL (test code = 4.47 RATIO 2238) LIPID [id number] 00:00:00 Test Item Value Reference Range Interpretation Comments CHOLESTEROL (test code = 2210) 295 MG/DL TRIGLYCERIDES (test code = 2232) 218 MG/DL HDL CHOLESTEROL (test code = 2220) 46 MG/DL CALC LDL CHOL (test code = 2237) 205 MG/DL RISK RATIO LDL/HDL (test code = 4.47 RATIO 2238) HEMOGLOBIN [id number] 00:00:00 Test Item Value Reference Range Interpretation Comments HEMOGLOBIN A1c (test code = 14675) 7.0 % HEMOGLOBIN [id number] 00:00:00 Test Item Value Reference Range Interpretation Comments HEMOGLOBIN A1c (test code = 94785) 7.0 % HEMOGLOBIN [id number] 00:00:00 Test Item Value Reference Range Interpretation Comments HEMOGLOBIN A1c (test code = 93421) 7.0 % [id number] 00:00:00 Test Item Value Reference Range Interpretation Comments TSH, THIRD GENERATION (test code 0.565 UIU/ML = 2821) [id number] 00:00:00 Test Item Value Reference Range Interpretation Comments TSH, THIRD GENERATION (test code 0.565 UIU/ML = 2821) [id number] 00:00:00 Test Item Value Reference Range Interpretation Comments TSH, THIRD GENERATION (test code 0.565 UIU/ML = 2821) COMPREHENSIVE METABOLIC [id number] 00:00:00 Test Item Value Reference Range Interpretation Comments GLUCOSE (test code = 2217) 109 MG/DL BUN (test code = 2208) 25 MG/DL CREATININE (test code = 2214) 0.78 MG/DL eGFR AMER. (test code 98 ML/MIN/1.73 = 37151) eGFR NON- AMER. (test 84 ML/MIN/1.73 code = 76982) CALC BUN/CREAT (test code = 32 RATIO [...] code = 2219) 25 U/L COMPREHENSIVE METABOLIC [id number] 00:00:00 Test Item Value Reference Range Interpretation Comments GLUCOSE (test code = 2217) 109 MG/DL BUN (test code = 2208) 25 MG/DL CREATININE (test code = 2214) 0.78 MG/DL eGFR AMER. (test code 98 ML/MIN/1.73 = 48232) eGFR NON- AMER. (test 84 ML/MIN/1.73 code = 35606) CALC BUN/CREAT (test code = 32 RATIO [...] (test code = 2219) 25 U/L LIPID [id number] 00:00:00 Test Item Value Reference Range Interpretation Comments CHOLESTEROL (test code = 2210) 295 MG/DL TRIGLYCERIDES (test code = 2232) 218 MG/DL HDL CHOLESTEROL (test code = 2220) 46 MG/DL CALC LDL CHOL (test code = 2237) 205 MG/DL RISK RATIO LDL/HDL (test code = 4.47 RATIO 2238) LIPID [id number] 00:00:00 Test Item Value Reference Range Interpretation Comments CHOLESTEROL (test code = 2210) 295 MG/DL TRIGLYCERIDES (test code = 2232) 218 MG/DL HDL CHOLESTEROL (test code = 2220) 46 MG/DL CALC LDL CHOL (test code = 2237) 205 MG/DL RISK RATIO LDL/HDL (test code = 4.47 RATIO 2238) HEMOGLOBIN [id number] 00:00:00 Test Item Value Reference Range Interpretation Comments HEMOGLOBIN A1c (test code = 96771) 7.0 % HEMOGLOBIN [id number] 00:00:00 Test Item Value Reference Range Interpretation Comments HEMOGLOBIN A1c (test code = 28878) 7.0 % HEMOGLOBIN [id number] 00:00:00 Test Item Value Reference Range Interpretation Comments HEMOGLOBIN A1c (test code = 79293) 7.0 % [id number] 00:00:00 Test Item Value Reference Range Interpretation Comments TSH, THIRD GENERATION (test code 0.565 UIU/ML = 2821) [id number] 00:00:00 Test Item Value Reference Range Interpretation Comments TSH, THIRD GENERATION (test code 0.565 UIU/ML = 2821) [id number] 00:00:00 Test Item Value Reference Range Interpretation Comments TSH, THIRD GENERATION (test code 0.565 UIU/ML = 2821) COMPREHENSIVE METABOLIC [id number] 00:00:00 Test Item Value Reference Range Interpretation Comments GLUCOSE (test code = 2217) 109 MG/DL BUN (test code = 2208) 25 MG/DL CREATININE (test code = 2214) 0.78 MG/DL eGFR AMER. (test code 98 ML/MIN/1.73 = 30607) eGFR NON- AMER. (test 84 ML/MIN/1.73 code = 29589) CALC BUN/CREAT (test code = 32 RATIO [...] (test code = 2219) 25 U/L LIPID [id number] 00:00:00 Test Item Value Reference Range Interpretation Comments CHOLESTEROL (test code = 2210) 295 MG/DL TRIGLYCERIDES (test code = 2232) 218 MG/DL HDL CHOLESTEROL (test code = 2220) 46 MG/DL CALC LDL CHOL (test code = 2237) 205 MG/DL RISK RATIO LDL/HDL (test code = 4.47 RATIO 2238) HEMOGLOBIN [id number] 00:00:00 Test Item Value Reference Range Interpretation Comments HEMOGLOBIN A1c (test code = 21743) 7.0 % HEMOGLOBIN [id number] 00:00:00 Test Item Value Reference Range Interpretation Comments HEMOGLOBIN A1c (test code = 55376) 7.0 % [id number] 00:00:00 Test Item Value Reference Range Interpretation Comments TSH, THIRD GENERATION (test code 0.565 UIU/ML = 2821) [id number] 00:00:00 Test Item Value Reference Range Interpretation Comments TSH, THIRD GENERATION (test code 0.565 UIU/ML = 2821) COMPREHENSIVE METABOLIC [id number] 00:00:00 Test Item Value Reference Range Interpretation Comments GLUCOSE (test code = 2217) 109 MG/DL BUN (test code = 2208) 25 MG/DL CREATININE (test code = 2214) 0.78 MG/DL eGFR AMER. (test code 98 ML/MIN/1.73 = 32528) eGFR NON- AMER. (test 84 ML/MIN/1.73 code = 85239) CALC BUN/CREAT (test code = 32 RATIO [...] code = 2219) 25 U/L COMPREHENSIVE METABOLIC [id number] 00:00:00 Test Item Value Reference Range Interpretation Comments GLUCOSE (test code = 2217) 109 MG/DL BUN (test code = 2208) 25 MG/DL CREATININE (test code = 2214) 0.78 MG/DL eGFR AMER. (test code 98 ML/MIN/1.73 = 06294) eGFR NON- AMER. (test 84 ML/MIN/1.73 code = 85961) CALC BUN/CREAT (test code = 32 RATIO [...] (test code = 2219) 25 U/L LIPID [id number] 00:00:00 Test Item Value Reference Range Interpretation Comments CHOLESTEROL (test code = 2210) 295 MG/DL TRIGLYCERIDES (test code = 2232) 218 MG/DL HDL CHOLESTEROL (test code = 2220) 46 MG/DL CALC LDL CHOL (test code = 2237) 205 MG/DL RISK RATIO LDL/HDL (test code = 4.47 RATIO 2238) LIPID [id number] 00:00:00 Test Item Value Reference Range Interpretation Comments CHOLESTEROL (test code = 2210) 295 MG/DL TRIGLYCERIDES (test code = 2232) 218 MG/DL HDL CHOLESTEROL (test code = 2220) 46 MG/DL CALC LDL CHOL (test code = 2237) 205 MG/DL RISK RATIO LDL/HDL (test code = 4.47 RATIO 2238) HEMOGLOBIN [id number] 00:00:00 Test Item Value Reference Range Interpretation Comments HEMOGLOBIN A1c (test code = 14123) 7.0 % HEMOGLOBIN [id number] 00:00:00 Test Item Value Reference Range Interpretation Comments HEMOGLOBIN A1c (test code = 04465) 7.0 % HEMOGLOBIN [id number] 00:00:00 Test Item Value Reference Range Interpretation Comments HEMOGLOBIN A1c (test code = 23910) 7.0 % [id number] 00:00:00 Test Item Value Reference Range Interpretation Comments TSH, THIRD GENERATION (test code 0.565 UIU/ML = 2821) [id number] 00:00:00 Test Item Value Reference Range Interpretation Comments TSH, THIRD GENERATION (test code 0.565 UIU/ML = 2821) [id number] 00:00:00 Test Item Value Reference Range Interpretation Comments TSH, THIRD GENERATION (test code 0.565 UIU/ML = 2821) [id number] 00:00:00 Test Item Value Reference Range Interpretation Comments TSH, THIRD GENERATION (test code 0.379 UIU/ML = 2821) [id number] 00:00:00 Test Item Value Reference Range Interpretation Comments TSH, THIRD GENERATION (test code 0.379 UIU/ML = 2821) [id number] 00:00:00 Test Item Value Reference Range Interpretation Comments TSH, THIRD GENERATION (test code 0.379 UIU/ML = 2821) [id number] 00:00:00 Test Item Value Reference Range Interpretation Comments TSH, THIRD GENERATION (test code 0.379 UIU/ML = 2821) [id number] 00:00:00 Test Item Value Reference Range Interpretation Comments TSH, THIRD GENERATION (test code 0.379 UIU/ML = 2821) [id number] 00:00:00 Test Item Value Reference Range Interpretation Comments TSH, THIRD GENERATION (test code 0.379 UIU/ML = 2821) [id number] 00:00:00 Test Item Value Reference Range Interpretation Comments TSH, THIRD GENERATION (test code 0.379 UIU/ML = 2821) [id number] 00:00:00 Test Item Value Reference Range Interpretation Comments TSH, THIRD GENERATION (test code 0.379 UIU/ML = 2821) [id number] 00:00:00 Test Item Value Reference Range Interpretation Comments TSH, THIRD GENERATION (test code 0.379 UIU/ML = 2821) [id number] 00:00:00 Test Item Value Reference Range Interpretation Comments TSH, THIRD GENERATION (test code 0.379 UIU/ML = 2821) [id number] 00:00:00 Test Item Value Reference Range Interpretation Comments TSH, THIRD GENERATION (test code 0.379 UIU/ML = 2821) CULTURE, [id number] 00:00:00 Test Item Value Reference Range Interpretation Comments CULTURE, URINE (test SPECIMEN NUMBER: code = 82149) [id number] CULTURE, [id number] 00:00:00 Test Item Value Reference Range Interpretation Comments CULTURE, URINE (test SPECIMEN NUMBER: code = 72753) [id number] CULTURE, [id number] 00:00:00 Test Item Value Reference Range Interpretation Comments CULTURE, URINE (test SPECIMEN NUMBER: code = 79030) [id number] CULTURE, [id number] 00:00:00 Test Item Value Reference Range Interpretation Comments CULTURE, URINE (test SPECIMEN NUMBER: code = 75186) [id number] CULTURE, [id number] 00:00:00 Test Item Value Reference Range Interpretation Comments CULTURE, URINE (test SPECIMEN NUMBER: code = 25686) [id number] CULTURE, [id number] 00:00:00 Test Item Value Reference Range Interpretation Comments CULTURE, URINE (test SPECIMEN NUMBER: code = 09916) [id number] CULTURE, [id number] 00:00:00 Test Item Value Reference Range Interpretation Comments CULTURE, URINE (test SPECIMEN NUMBER: code = 71553) [id number] COMPREHENSIVE METABOLIC [id number] 00:00:00 Test Item Value Reference Range Interpretation Comments GLUCOSE (test code = 2217) 128 MG/DL BUN (test code = 2208) 26 MG/DL CREATININE (test code = 2214) 0.92 MG/DL eGFR AMER. (test code 81 ML/MIN/1.73 = 90951) eGFR NON- AMER. (test 70 ML/MIN/1.73 code = 62046) CALC BUN/CREAT (test code = 28 RATIO [...] code = 2219) 29 U/L COMPREHENSIVE METABOLIC [id number] 00:00:00 Test Item Value Reference Range Interpretation Comments GLUCOSE (test code = 2217) 128 MG/DL BUN (test code = 2208) 26 MG/DL CREATININE (test code = 2214) 0.92 MG/DL eGFR AMER. (test code 81 ML/MIN/1.73 = 75024) eGFR NON- AMER. (test 70 ML/MIN/1.73 code = 31921) CALC BUN/CREAT (test code = 28 RATIO [...] code = 2219) 29 U/L ACUTE HEPATITIS [id number] 00:00:00 Test Item Value Reference Range Interpretation Comments HEPATITIS A IgM (test code = NON-REACTIVE 28343) HEPATITIS B CORE IgM (test code NON-REACTIVE = 4644) HEPATITIS B SURF AG (test code = NON-REACTIVE 2739) HEPATITIS C ANTIBODY (test code NON-REACTIVE = 4675) INTERPRETATION HEPATITIS A: (NOTE) (test code = 2552) INTERPRETATION HEPATITIS B: (NOTE) (test code = 73254) INTERPRETATION HEPATITIS C: (NOTE) (test code = 65855) ACUTE HEPATITIS [id number] 00:00:00 Test Item Value Reference Range Interpretation Comments HEPATITIS A IgM (test code = NON-REACTIVE 71236) HEPATITIS B CORE IgM (test code NON-REACTIVE = 4644) HEPATITIS B SURF AG (test code = NON-REACTIVE 2739) HEPATITIS C ANTIBODY (test code NON-REACTIVE = 4675) INTERPRETATION HEPATITIS A: (NOTE) (test code = 2552) INTERPRETATION HEPATITIS B: (NOTE) (test code = 52132) INTERPRETATION HEPATITIS C: (NOTE) (test code = 88490) [id number] 00:00:00 Test Item Value Reference Range Interpretation Comments AMYLASE (test code = 2205) 32 U/L [id number] 00:00:00 Test Item Value Reference Range Interpretation Comments AMYLASE (test code = 2205) 32 U/L [id number] 00:00:00 Test Item Value Reference Range Interpretation Comments LIPASE (test code = 2058) 22 U/L [id number] 00:00:00 Test Item Value Reference Range Interpretation Comments LIPASE (test code = 2058) 22 U/L [id number] 00:00:00 Test Item Value Reference Range Interpretation Comments LIPASE (test code = 2058) 22 U/L COMPREHENSIVE METABOLIC [id number] 00:00:00 Test Item Value Reference Range Interpretation Comments GLUCOSE (test code = 2217) 128 MG/DL BUN (test code = 2208) 26 MG/DL CREATININE (test code = 2214) 0.92 MG/DL eGFR AMER. (test code 81 ML/MIN/1.73 = 99453) eGFR NON- AMER. (test 70 ML/MIN/1.73 code = 29973) CALC BUN/CREAT (test code = 28 RATIO [...] code = 2219) 29 U/L COMPREHENSIVE METABOLIC [id number] 00:00:00 Test Item Value Reference Range Interpretation Comments GLUCOSE (test code = 2217) 128 MG/DL BUN (test code = 2208) 26 MG/DL CREATININE (test code = 2214) 0.92 MG/DL eGFR AMER. (test code 81 ML/MIN/1.73 = 00265) eGFR NON- AMER. (test 70 ML/MIN/1.73 code = 32098) CALC BUN/CREAT (test code = 28 RATIO [...] code = 2219) 29 U/L ACUTE HEPATITIS [id number] 00:00:00 Test Item Value Reference Range Interpretation Comments HEPATITIS A IgM (test code = NON-REACTIVE 13477) HEPATITIS B CORE IgM (test code NON-REACTIVE = 4644) HEPATITIS B SURF AG (test code = NON-REACTIVE 2739) HEPATITIS C ANTIBODY (test code NON-REACTIVE = 4675) INTERPRETATION HEPATITIS A: (NOTE) (test code = 2552) INTERPRETATION HEPATITIS B: (NOTE) (test code = 25687) INTERPRETATION HEPATITIS C: (NOTE) (test code = 03342) ACUTE HEPATITIS [id number] 00:00:00 Test Item Value Reference Range Interpretation Comments HEPATITIS A IgM (test code = NON-REACTIVE 68149) HEPATITIS B CORE IgM (test code NON-REACTIVE = 4644) HEPATITIS B SURF AG (test code = NON-REACTIVE 2739) HEPATITIS C ANTIBODY (test code NON-REACTIVE = 4675) INTERPRETATION HEPATITIS A: (NOTE) (test code = 2552) INTERPRETATION HEPATITIS B: (NOTE) (test code = 09564) INTERPRETATION HEPATITIS C: (NOTE) (test code = 93745) [id number] 00:00:00 Test Item Value Reference Range Interpretation Comments AMYLASE (test code = 2205) 32 U/L [id number] 00:00:00 Test Item Value Reference Range Interpretation Comments AMYLASE (test code = 2205) 32 U/L [id number] 00:00:00 Test Item Value Reference Range Interpretation Comments LIPASE (test code = 2058) 22 U/L [id number] 00:00:00 Test Item Value Reference Range Interpretation Comments LIPASE (test code = 2058) 22 U/L [id number] 00:00:00 Test Item Value Reference Range Interpretation Comments LIPASE (test code = 2058) 22 U/L COMPREHENSIVE METABOLIC [id number] 00:00:00 Test Item Value Reference Range Interpretation Comments GLUCOSE (test code = 2217) 128 MG/DL BUN (test code = 2208) 26 MG/DL CREATININE (test code = 2214) 0.92 MG/DL eGFR AMER. (test code 81 ML/MIN/1.73 = 68766) eGFR NON- AMER. (test 70 ML/MIN/1.73 code = 45154) CALC BUN/CREAT (test code = 28 RATIO [...] code = 2219) 29 U/L ACUTE HEPATITIS [id number] 00:00:00 Test Item Value Reference Range Interpretation Comments HEPATITIS A IgM (test code = NON-REACTIVE 35651) HEPATITIS B CORE IgM (test code NON-REACTIVE = 3904) HEPATITIS B SURF AG (test code = NON-REACTIVE 0033) HEPATITIS C ANTIBODY (test code NON-REACTIVE = 4631) INTERPRETATION HEPATITIS A: (NOTE) (test code = 2552) INTERPRETATION HEPATITIS B: (NOTE) (test code = 93178) INTERPRETATION HEPATITIS C: (NOTE) (test code = 13217) [id number] 00:00:00 Test Item Value Reference Range Interpretation Comments AMYLASE (test code = 2205) 32 U/L [id number] 00:00:00 Test Item Value Reference Range Interpretation Comments LIPASE (test code = 8) 22 U/L [id number] 00:00:00 Test Item Value Reference Range Interpretation Comments LIPASE (test code = 2058) 22 U/L COMPREHENSIVE METABOLIC [id number] 00:00:00 Test Item Value Reference Range Interpretation Comments GLUCOSE (test code = 2217) 128 MG/DL BUN (test code = 2208) 26 MG/DL CREATININE (test code = 2214) 0.92 MG/DL eGFR AMER. (test code 81 ML/MIN/1.73 = 70703) eGFR NON- AMER. (test 70 ML/MIN/1.73 code = 14603) CALC BUN/CREAT (test code = 28 RATIO [...] code = 2219) 29 U/L COMPREHENSIVE METABOLIC [id number] 00:00:00 Test Item Value Reference Range Interpretation Comments GLUCOSE (test code = 2217) 128 MG/DL BUN (test code = 2208) 26 MG/DL CREATININE (test code = 2214) 0.92 MG/DL eGFR AMER. (test code 81 ML/MIN/1.73 = 07141) eGFR NON- AMER. (test 70 ML/MIN/1.73 code = 97925) CALC BUN/CREAT (test code = 28 RATIO [...] code = 2219) 29 U/L ACUTE HEPATITIS [id number] 00:00:00 Test Item Value Reference Range Interpretation Comments HEPATITIS A IgM (test code = NON-REACTIVE 69549) HEPATITIS B CORE IgM (test code NON-REACTIVE = 5881) HEPATITIS B SURF AG (test code = NON-REACTIVE 2739) HEPATITIS C ANTIBODY (test code NON-REACTIVE = 4675) INTERPRETATION HEPATITIS A: (NOTE) (test code = 2552) INTERPRETATION HEPATITIS B: (NOTE) (test code = 44239) INTERPRETATION HEPATITIS C: (NOTE) (test code = 31189) ACUTE HEPATITIS [id number] 00:00:00 Test Item Value Reference Range Interpretation Comments HEPATITIS A IgM (test code = NON-REACTIVE 33876) HEPATITIS B CORE IgM (test code NON-REACTIVE = 4644) HEPATITIS B SURF AG (test code = NON-REACTIVE 2739) HEPATITIS C ANTIBODY (test code NON-REACTIVE = 4675) INTERPRETATION HEPATITIS A: (NOTE) (test code = 2552) INTERPRETATION HEPATITIS B: (NOTE) (test code = 83918) INTERPRETATION HEPATITIS C: (NOTE) (test code = 83278) [id number] 00:00:00 Test Item Value Reference Range Interpretation Comments AMYLASE (test code = 2205) 32 U/L [id number] 00:00:00 Test Item Value Reference Range Interpretation Comments AMYLASE (test code = 2205) 32 U/L [id number] 00:00:00 Test Item Value Reference Range Interpretation Comments LIPASE (test code = 2058) 22 U/L [id number] 00:00:00 Test Item Value Reference Range Interpretation Comments LIPASE (test code = 2058) 22 U/L [id number] 00:00:00 Test Item Value Reference Range Interpretation Comments LIPASE (test code = 2058) 22 U/L [id number] 00:00:00 Test Item Value Reference Range Interpretation Comments TSH, THIRD GENERATION (test code 4.890 UIU/ML = 2821) [id number] 00:00:00 Test Item Value Reference Range Interpretation Comments TSH, THIRD GENERATION (test code 4.890 UIU/ML = 2821) [id number] 00:00:00 Test Item Value Reference Range Interpretation Comments TSH, THIRD GENERATION (test code 4.890 UIU/ML = 2821) COMPREHENSIVE METABOLIC [id number] 00:00:00 Test Item Value Reference Range Interpretation Comments GLUCOSE (test code = 2217) 121 MG/DL BUN (test code = 2208) 40 MG/DL CREATININE (test code = 2214) 1.48 MG/DL eGFR AMER. (test code 45 ML/MIN/1.73 = 69344) eGFR NON- AMER. (test 39 ML/MIN/1.73 code = 86117) CALC BUN/CREAT (test code = 27 RATIO [...] code = 2219) 20 U/L COMPREHENSIVE METABOLIC [id number] 00:00:00 Test Item Value Reference Range Interpretation Comments GLUCOSE (test code = 2217) 121 MG/DL BUN (test code = 2208) 40 MG/DL CREATININE (test code = 2214) 1.48 MG/DL eGFR AMER. (test code 45 ML/MIN/1.73 = 17301) eGFR NON- AMER. (test 39 ML/MIN/1.73 code = 39952) CALC BUN/CREAT (test code = 27 RATIO [...] ALT (test code = 2219) 20 U/L [id number] 00:00:00 Test Item Value Reference Range Interpretation Comments TSH, THIRD GENERATION (test code 4.890 UIU/ML = 2821) [id number] 00:00:00 Test Item Value Reference Range Interpretation Comments TSH, THIRD GENERATION (test code 4.890 UIU/ML = 2821) [id number] 00:00:00 Test Item Value Reference Range Interpretation Comments TSH, THIRD GENERATION (test code 4.890 UIU/ML = 2821) COMPREHENSIVE METABOLIC [id number] 00:00:00 Test Item Value Reference Range Interpretation Comments GLUCOSE (test code = 2217) 121 MG/DL BUN (test code = 2208) 40 MG/DL CREATININE (test code = 2214) 1.48 MG/DL eGFR AMER. (test code 45 ML/MIN/1.73 = 31209) eGFR NON- AMER. (test 39 ML/MIN/1.73 code = 27715) CALC BUN/CREAT (test code = 27 RATIO [...] code = 2219) 20 U/L COMPREHENSIVE METABOLIC [id number] 00:00:00 Test Item Value Reference Range Interpretation Comments GLUCOSE (test code = 2217) 121 MG/DL BUN (test code = 2208) 40 MG/DL CREATININE (test code = 2214) 1.48 MG/DL eGFR AMER. (test code 45 ML/MIN/1.73 = 20818) eGFR NON- AMER. (test 39 ML/MIN/1.73 code = 37651) CALC BUN/CREAT (test code = 27 RATIO [...] ALT (test code = 2219) 20 U/L [id number] 00:00:00 Test Item Value Reference Range Interpretation Comments TSH, THIRD GENERATION (test code 4.890 UIU/ML = 2821) [id number] 00:00:00 Test Item Value Reference Range Interpretation Comments TSH, THIRD GENERATION (test code 4.890 UIU/ML = 2821) COMPREHENSIVE METABOLIC [id number] 00:00:00 Test Item Value Reference Range Interpretation Comments GLUCOSE (test code = 2217) 121 MG/DL BUN (test code = 2208) 40 MG/DL CREATININE (test code = 2214) 1.48 MG/DL eGFR AMER. (test code 45 ML/MIN/1.73 = 30995) eGFR NON- AMER. (test 39 ML/MIN/1.73 code = 62517) CALC BUN/CREAT (test code = 27 RATIO [...] ALT (test code = 2219) 20 U/L [id number] 00:00:00 Test Item Value Reference Range Interpretation Comments TSH, THIRD GENERATION (test code 4.890 UIU/ML = 2821) [id number] 00:00:00 Test Item Value Reference Range Interpretation Comments TSH, THIRD GENERATION (test code 4.890 UIU/ML = 2821) [id number] 00:00:00 Test Item Value Reference Range Interpretation Comments TSH, THIRD GENERATION (test code 4.890 UIU/ML = 2821) COMPREHENSIVE METABOLIC [id number] 00:00:00 Test Item Value Reference Range Interpretation Comments GLUCOSE (test code = 2217) 121 MG/DL BUN (test code = 2208) 40 MG/DL CREATININE (test code = 2214) 1.48 MG/DL eGFR AMER. (test code 45 ML/MIN/1.73 = 97447) eGFR NON- AMER. (test 39 ML/MIN/1.73 code = 41670) CALC BUN/CREAT (test code = 27 RATIO [...] code = 2219) 20 U/L COMPREHENSIVE METABOLIC [id number] 00:00:00 Test Item Value Reference Range Interpretation Comments GLUCOSE (test code = 2217) 121 MG/DL BUN (test code = 2208) 40 MG/DL CREATININE (test code = 2214) 1.48 MG/DL eGFR AMER. (test code 45 ML/MIN/1.73 = 67346) eGFR NON- AMER. (test 39 ML/MIN/1.73 code = 65482) CALC BUN/CREAT (test code = 27 RATIO [...] (test code = 2219) 20 U/L LIPID [id number] 00:00:00 Test Item Value Reference Range Interpretation Comments CHOLESTEROL (test code = 2210) 261 MG/DL TRIGLYCERIDES (test code = 2232) 165 MG/DL HDL CHOLESTEROL (test code = 2220) 58 MG/DL CALC LDL CHOL (test code = 2237) 170 MG/DL RISK RATIO LDL/HDL (test code = 2.93 RATIO 2238) LIPID [id number] 00:00:00 Test Item Value Reference Range Interpretation Comments CHOLESTEROL (test code = 2210) 261 MG/DL TRIGLYCERIDES (test code = 2232) 165 MG/DL HDL CHOLESTEROL (test code = 2220) 58 MG/DL CALC LDL CHOL (test code = 2237) 170 MG/DL RISK RATIO LDL/HDL (test code = 2.93 RATIO 2238) CBC W/AUTO [id number] 00:00:00 Test Item Value Reference Range Interpretation [...] code = 1015) 378 K/UL CBC W/AUTO [id number] 00:00:00 Test Item Value Reference Range Interpretation [...] code = 1015) 378 K/UL CBC W/AUTO [id number] 00:00:00 Test Item Value Reference Range Interpretation [...] (test code = 1015) 378 K/UL HEMOGLOBIN [id number] 00:00:00 Test Item Value Reference Range Interpretation Comments HEMOGLOBIN A1c (test code = 45539) 6.4 % HEMOGLOBIN [id number] 00:00:00 Test Item Value Reference Range Interpretation Comments HEMOGLOBIN A1c (test code = 12409) 6.4 % HEMOGLOBIN [id number] 00:00:00 Test Item Value Reference Range Interpretation Comments HEMOGLOBIN A1c (test code = 14184) 6.4 % [id number] 00:00:00 Test Item Value Reference Range Interpretation Comments TSH (test code = 2821) 5.290 UIU/ML [id number] 00:00:00 Test Item Value Reference Range Interpretation Comments TSH (test code = 2821) 5.290 UIU/ML [id number] 00:00:00 Test Item Value Reference Range Interpretation Comments TSH (test code = 2821) 5.290 UIU/ML LIPID [id number] 00:00:00 Test Item Value Reference Range Interpretation Comments CHOLESTEROL (test code = 2210) 261 MG/DL TRIGLYCERIDES (test code = 2232) 165 MG/DL HDL CHOLESTEROL (test code = 2220) 58 MG/DL CALC LDL CHOL (test code = 2237) 170 MG/DL RISK RATIO LDL/HDL (test code = 2.93 RATIO 2238) LIPID [id number] 00:00:00 Test Item Value Reference Range Interpretation Comments CHOLESTEROL (test code = 2210) 261 MG/DL TRIGLYCERIDES (test code = 2232) 165 MG/DL HDL CHOLESTEROL (test code = 2220) 58 MG/DL CALC LDL CHOL (test code = 2237) 170 MG/DL RISK RATIO LDL/HDL (test code = 2.93 RATIO 2238) CBC W/AUTO [id number] 00:00:00 Test Item Value Reference Range Interpretation [...] code = 1015) 378 K/UL CBC W/AUTO [id number] 00:00:00 Test Item Value Reference Range Interpretation [...] code = 1015) 378 K/UL CBC W/AUTO [id number] 00:00:00 Test Item Value Reference Range Interpretation [...] (test code = 1015) 378 K/UL HEMOGLOBIN [id number] 00:00:00 Test Item Value Reference Range Interpretation Comments HEMOGLOBIN A1c (test code = 23736) 6.4 % HEMOGLOBIN [id number] 00:00:00 Test Item Value Reference Range Interpretation Comments HEMOGLOBIN A1c (test code = 91975) 6.4 % HEMOGLOBIN [id number] 00:00:00 Test Item Value Reference Range Interpretation Comments HEMOGLOBIN A1c (test code = 59789) 6.4 % [id number] 00:00:00 Test Item Value Reference Range Interpretation Comments TSH (test code = 2821) 5.290 UIU/ML [id number] 00:00:00 Test Item Value Reference Range Interpretation Comments TSH (test code = 2821) 5.290 UIU/ML [id number] 00:00:00 Test Item Value Reference Range Interpretation Comments TSH (test code = 2821) 5.290 UIU/ML LIPID [id number] 00:00:00 Test Item Value Reference Range Interpretation Comments CHOLESTEROL (test code = 2210) 261 MG/DL TRIGLYCERIDES (test code = 2232) 165 MG/DL HDL CHOLESTEROL (test code = 2220) 58 MG/DL CALC LDL CHOL (test code = 2237) 170 MG/DL RISK RATIO LDL/HDL (test code = 2.93 RATIO 2238) CBC W/AUTO [id number] 00:00:00 Test Item Value Reference Range Interpretation [...] code = 1015) 378 K/UL CBC W/AUTO [id number] 00:00:00 Test Item Value Reference Range Interpretation [...] (test code = 1015) 378 K/UL HEMOGLOBIN [id number] 00:00:00 Test Item Value Reference Range Interpretation Comments HEMOGLOBIN A1c (test code = 96995) 6.4 % HEMOGLOBIN [id number] 00:00:00 Test Item Value Reference Range Interpretation Comments HEMOGLOBIN A1c (test code = 94278) 6.4 % [id number] 00:00:00 Test Item Value Reference Range Interpretation Comments TSH (test code = 2821) 5.290 UIU/ML [id number] 00:00:00 Test Item Value Reference Range Interpretation Comments TSH (test code = 2821) 5.290 UIU/ML LIPID [id number] 00:00:00 Test Item Value Reference Range Interpretation Comments CHOLESTEROL (test code = 2210) 261 MG/DL TRIGLYCERIDES (test code = 2232) 165 MG/DL HDL CHOLESTEROL (test code = 2220) 58 MG/DL CALC LDL CHOL (test code = 2237) 170 MG/DL RISK RATIO LDL/HDL (test code = 2.93 RATIO 2238) LIPID [id number] 00:00:00 Test Item Value Reference Range Interpretation Comments CHOLESTEROL (test code = 2210) 261 MG/DL TRIGLYCERIDES (test code = 2232) 165 MG/DL HDL CHOLESTEROL (test code = 2220) 58 MG/DL CALC LDL CHOL (test code = 2237) 170 MG/DL RISK RATIO LDL/HDL (test code = 2.93 RATIO 2238) CBC W/AUTO [id number] 00:00:00 Test Item Value Reference Range Interpretation [...] code = 1015) 378 K/UL CBC W/AUTO [id number] 00:00:00 Test Item Value Reference Range Interpretation [...] code = 1015) 378 K/UL CBC W/AUTO [id number] 00:00:00 Test Item Value Reference Range Interpretation [...] (test code = 1015) 378 K/UL HEMOGLOBIN [id number] 00:00:00 Test Item Value Reference Range Interpretation Comments HEMOGLOBIN A1c (test code = 94547) 6.4 % HEMOGLOBIN [id number] 00:00:00 Test Item Value Reference Range Interpretation Comments HEMOGLOBIN A1c (test code = 10944) 6.4 % HEMOGLOBIN [id number] 00:00:00 Test Item Value Reference Range Interpretation Comments HEMOGLOBIN A1c (test code = 26287) 6.4 % [id number] 00:00:00 Test Item Value Reference Range Interpretation Comments TSH (test code = 2821) 5.290 UIU/ML [id number] 00:00:00 Test Item Value Reference Range Interpretation Comments TSH (test code = 2821) 5.290 UIU/ML [id number] 00:00:00 Test Item Value Reference Range Interpretation [...] code = 2821) 1.030 UIU/ML COMPREHENSIVE METABOLIC [id number] 00:00:00 Test Item Value Reference Range Interpretation Comments GLUCOSE (test code = 2217) 106 MG/DL BUN (test code = 2208) 23 MG/DL CREATININE (test code = 2214) 0.66 MG/DL eGFR AMER. (test code 114 ML/MIN/1.73 = 89345) eGFR NON- AMER. (test 99 ML/MIN/1.73 code = 92597) CALC BUN/CREAT (test code = 35 RATIO [...] code = 2219) 31 U/L COMPREHENSIVE METABOLIC [id number] 00:00:00 Test Item Value Reference Range Interpretation Comments GLUCOSE (test code = 2217) 106 MG/DL BUN (test code = 2208) 23 MG/DL CREATININE (test code = 2214) 0.66 MG/DL eGFR AMER. (test code 114 ML/MIN/1.73 = 99224) eGFR NON- AMER. (test 99 ML/MIN/1.73 code = 18510) CALC BUN/CREAT (test code = 35 RATIO [...] code = 2821) 0.335 UIU/ML COMPREHENSIVE METABOLIC [id number] 00:00:00 Test Item Value Reference Range Interpretation Comments GLUCOSE (test code = 2217) 106 MG/DL BUN (test code = 2208) 23 MG/DL CREATININE (test code = 2214) 0.66 MG/DL eGFR AMER. (test code 114 ML/MIN/1.73 = 00538) eGFR NON- AMER. (test 99 ML/MIN/1.73 code = 23343) CALC BUN/CREAT (test code = 35 RATIO [...] code = 2219) 31 U/L COMPREHENSIVE METABOLIC [id number] 00:00:00 Test Item Value Reference Range Interpretation Comments GLUCOSE (test code = 2217) 106 MG/DL BUN (test code = 2208) 23 MG/DL CREATININE (test code = 2214) 0.66 MG/DL eGFR AMER. (test code 114 ML/MIN/1.73 = 80146) eGFR NON- AMER. (test 99 ML/MIN/1.73 code = 44114) CALC BUN/CREAT (test code = 35 RATIO [...] code = 2821) 0.335 UIU/ML COMPREHENSIVE METABOLIC [id number] 00:00:00 Test Item Value Reference Range Interpretation Comments GLUCOSE (test code = 2217) 106 MG/DL BUN (test code = 2208) 23 MG/DL CREATININE (test code = 2214) 0.66 MG/DL eGFR AMER. (test code 114 ML/MIN/1.73 = 49782) eGFR NON- AMER. (test 99 ML/MIN/1.73 code = 65030) CALC BUN/CREAT (test code = 35 RATIO [...] code = 2821) 0.335 UIU/ML COMPREHENSIVE METABOLIC [id number] 00:00:00 Test Item Value Reference Range Interpretation Comments GLUCOSE (test code = 2217) 106 MG/DL BUN (test code = 2208) 23 MG/DL CREATININE (test code = 2214) 0.66 MG/DL eGFR AMER. (test code 114 ML/MIN/1.73 = 65015) eGFR NON- AMER. (test 99 ML/MIN/1.73 code = 48567) CALC BUN/CREAT (test code = 35 RATIO [...] code = 2219) 31 U/L COMPREHENSIVE METABOLIC [id number] 00:00:00 Test Item Value Reference Range Interpretation Comments GLUCOSE (test code = 2217) 106 MG/DL BUN (test code = 2208) 23 MG/DL CREATININE (test code = 2214) 0.66 MG/DL eGFR AMER. (test code 114 ML/MIN/1.73 = 81409) eGFR NON- AMER. (test 99 ML/MIN/1.73 code = 35164) CALC BUN/CREAT (test code = 35 RATIO [...] code = 2821) 0.335 UIU/ML COMPREHENSIVE METABOLIC [id number] 00:00:00 Test Item Value Reference Range Interpretation Comments GLUCOSE (test code = 2217) 103 MG/DL BUN (test code = 2208) 15 MG/DL CREATININE (test code = 2214) 0.77 MG/DL eGFR AMER. (test code 101 ML/MIN/1.73 = 06456) eGFR NON- AMER. (test 87 ML/MIN/1.73 code = 23254) CALC BUN/CREAT (test code = 19 RATIO [...] code = 2219) 24 U/L COMPREHENSIVE METABOLIC [id number] 00:00:00 Test Item Value Reference Range Interpretation Comments GLUCOSE (test code = 2217) 103 MG/DL BUN (test code = 2208) 15 MG/DL CREATININE (test code = 2214) 0.77 MG/DL eGFR AMER. (test code 101 ML/MIN/1.73 = 04971) eGFR NON- AMER. (test 87 ML/MIN/1.73 code = 49070) CALC BUN/CREAT (test code = 19 RATIO [...] code = 2821) 0.424 UIU/ML COMPREHENSIVE METABOLIC [id number] 00:00:00 Test Item Value Reference Range Interpretation Comments GLUCOSE (test code = 2217) 103 MG/DL BUN (test code = 2208) 15 MG/DL CREATININE (test code = 2214) 0.77 MG/DL eGFR AMER. (test code 101 ML/MIN/1.73 = 93874) eGFR NON- AMER. (test 87 ML/MIN/1.73 code = 69997) CALC BUN/CREAT (test code = 19 RATIO [...] code = 2219) 24 U/L COMPREHENSIVE METABOLIC [id number] 00:00:00 Test Item Value Reference Range Interpretation Comments GLUCOSE (test code = 2217) 103 MG/DL BUN (test code = 2208) 15 MG/DL CREATININE (test code = 2214) 0.77 MG/DL eGFR AMER. (test code 101 ML/MIN/1.73 = 65003) eGFR NON- AMER. (test 87 ML/MIN/1.73 code = 83179) CALC BUN/CREAT (test code = 19 RATIO [...] code = 2821) 0.424 UIU/ML COMPREHENSIVE METABOLIC [id number] 00:00:00 Test Item Value Reference Range Interpretation Comments GLUCOSE (test code = 2217) 103 MG/DL BUN (test code = 2208) 15 MG/DL CREATININE (test code = 2214) 0.77 MG/DL eGFR AMER. (test code 101 ML/MIN/1.73 = 60024) eGFR NON- AMER. (test 87 ML/MIN/1.73 code = 78316) CALC BUN/CREAT (test code = 19 RATIO [...] code = 2821) 0.424 UIU/ML COMPREHENSIVE METABOLIC [id number] 00:00:00 Test Item Value Reference Range Interpretation Comments GLUCOSE (test code = 2217) 103 MG/DL BUN (test code = 2208) 15 MG/DL CREATININE (test code = 2214) 0.77 MG/DL eGFR AMER. (test code 101 ML/MIN/1.73 = 29738) eGFR NON- AMER. (test 87 ML/MIN/1.73 code = 99752) CALC BUN/CREAT (test code = 19 RATIO [...] code = 2219) 24 U/L COMPREHENSIVE METABOLIC [id number] 00:00:00 Test Item Value Reference Range Interpretation Comments GLUCOSE (test code = 2217) 103 MG/DL BUN (test code = 2208) 15 MG/DL CREATININE (test code = 2214) 0.77 MG/DL eGFR AMER. (test code 101 ML/MIN/1.73 = 08635) eGFR NON- AMER. (test 87 ML/MIN/1.73 code = 93686) CALC BUN/CREAT (test code = 19 RATIO [...] (test code = 2821) 0.424 UIU/ML CULTURE, [id number] 00:00:00 Test Item Value Reference Range Interpretation Comments CULTURE, URINE (test SPECIMEN NUMBER: code = 79290) [id number] CULTURE, [id number] 00:00:00 Test Item Value Reference Range Interpretation Comments CULTURE, URINE (test SPECIMEN NUMBER: code = 58449) [id number] CULTURE, [id number] 00:00:00 Test Item Value Reference Range Interpretation Comments CULTURE, URINE (test SPECIMEN NUMBER: code = 99576) [id number] CULTURE, [id number] 00:00:00 Test Item Value Reference Range Interpretation Comments CULTURE, URINE (test SPECIMEN NUMBER: code = 66788) [id number] CULTURE, [id number] 00:00:00 Test Item Value Reference Range Interpretation Comments CULTURE, URINE (test SPECIMEN NUMBER: code = 85086) [id number] CULTURE, [id number] 00:00:00 Test Item Value Reference Range Interpretation Comments CULTURE, URINE (test SPECIMEN NUMBER: code = 99471) [id number] CULTURE, [id number] 00:00:00 Test Item Value Reference Range Interpretation Comments CULTURE, URINE (test SPECIMEN NUMBER: code = 77150) [id number] CULTURE, [id number] 00:00:00 Test Item Value Reference Range Interpretation Comments CULTURE, URINE (test SPECIMEN NUMBER: code = 62917) [id number] CULTURE, [id number] 00:00:00 Test Item Value Reference Range Interpretation Comments CULTURE, URINE (test SPECIMEN NUMBER: code = 13929) [id number] CULTURE, [id number] 00:00:00 Test Item Value Reference Range Interpretation Comments CULTURE, URINE (test SPECIMEN NUMBER: code = 85743) [id number] CULTURE, [id number] 00:00:00 Test Item Value Reference Range Interpretation Comments CULTURE, URINE (test SPECIMEN NUMBER: code = 90067) [id number] CULTURE, [id number] 00:00:00 Test Item Value Reference Range Interpretation Comments CULTURE, URINE (test SPECIMEN NUMBER: code = 02362) [id number] CULTURE, [id number] 00:00:00 Test Item Value Reference Range Interpretation Comments CULTURE, URINE (test SPECIMEN NUMBER: code = 02320) [id number] CULTURE, [id number] 00:00:00 Test Item Value Reference Range Interpretation Comments CULTURE, URINE (test SPECIMEN NUMBER: code = 62457) [id number]
[2022-05-01] MEDS ORDERED: ONDANSETRON 4 MG/2 ML VIAL ONE (15:09)
--- NOTE | 2022-05-01 15:14 | ER ---
Nurse's Notes [facility] Name: Jaimie Amanda Age: 61 yrs Sex: Female : 1960 Arrival Date: 05/01/2022 Time: 14:47 Bed IW2 Private MD: Diagnosis: Nausea Presentation: 05/01 15:00 Chief complaint: Patient states: nauseated since this morning, denies abd pain, denies iw vomiting. Coronavirus screen: At this time, the client does not indicate any symptoms associated with coronavirus-19. Ebola Screen: Patient negative for fever greater than or equal to 101.5 degrees Fahrenheit, and additional compatible Ebola Virus Disease symptoms Patient denies exposure to infectious person. Patient denies travel to an Ebola-affected area in the 21 days before illness onset. No symptoms or risks identified at this time. Initial Sepsis Screen: Does the patient meet any 2 criteria? No. Patient's initial sepsis screen is negative. Does the patient have a suspected source of infection? No. Patient's initial sepsis screen is negative. Risk Assessment: Do you want to hurt yourself or someone else? Patient reports no desire to harm self or others. Onset of symptoms was May 01, 2022. 15:00 Method Of Arrival: Ambulatory iw 15:00 Acuity: ZHEN 4 iw Historical: - Allergies: 15:01 No Known Allergies; iw - PMHx: 15:01 Anxiety; Chronic Abdominal Pain; Hypertensive disorder; Hypothyroidism; low NA; NIDDM; iw - PSHx: 15:01 Thyroidectomy; iw Vital Signs: 15:00 BP 149 / 92; Pulse 100; Resp 16; Temp 97.9; Pulse Ox 96% on R/A; Weight 70.31 kg; iw Height 5 ft. 7 in. (170.18 cm); 15:00 Body Mass Index 24.28 (70.31 kg, 170.18 cm) iw ED Course: 14:47 Patient arrived in ED. as 14:51 Viridiana Peters FNP is [facility]. [facility] 14:51 Wilfrid Singh DO is Attending Physician. [facility] 15:01 Triage completed. iw 15:01 Therese Logan, RN is Primary Nurse. iw 15:01 Arm band placed on. iw Administered Medications: 15:07 Drug: Zofran (ondansetron) 4 mg Route: IM; Site: right ventrogluteal; iw Outcome: 15:13 Discharge ordered by MD. au 15:17 Discharged to home ambulatory, with family. iw 15:17 Condition: good 15:17 Discharge instructions given to patient, Instructed on discharge instructions. 15:17 Patient left the ED. iw Signatures: Ada Marley Irene, RN RN iw Viridiana Peters FNP FNP [id number]
--- NOTE | 2022-05-01 15:14 | EDPHYS ---
Physician Documentation [facility] Name: Jaimie Amanda Age: 61 yrs Sex: Female : 1960 Arrival Date: 05/01/2022 Time: 14:47 Bed IW2 Private MD: ED Physician Wilfrid Singh HPI: 05/01 15:02 This 61 yrs old Female presents to ER via Ambulatory with complaints of Nausea, "sick jh7 to stomach". 15:02 Patient reports that she has felt sick to her stomach since 2 AM. Denies vomiting but jh7 reports nausea. States that she does not want any labs or imaging and would only like a shot of Zofran with a prescription.. Historical: - Allergies: 15:01 No Known Allergies; iw - PMHx: 15:01 Anxiety; Chronic Abdominal Pain; Hypertensive disorder; Hypothyroidism; low NA; NIDDM; iw - PSHx: 15:01 Thyroidectomy; iw ROS: 15:02 Constitutional: Negative for fever, chills, and weight loss, Eyes: Negative for injury, jh7 pain, redness, and discharge, ENT: Negative for injury, pain, and discharge, Neck: Negative for injury, pain, and swelling, Cardiovascular: Negative for chest pain, palpitations, and edema, Respiratory: Negative for shortness of breath, cough, wheezing, and pleuritic chest pain, Back: Negative for injury and pain, MS/Extremity: Negative for injury and deformity, Skin: Negative for injury, rash, and discoloration, Neuro: Negative for headache, weakness, numbness, tingling, and seizure. 15:02 Abdomen/GI: Positive for nausea, abdominal cramps, Negative for abdominal pain, vomiting, diarrhea. 15:02 All other systems are negative. Exam: 15:02 Constitutional: This is a well developed, well nourished patient who is awake, alert, jh7 and in no acute distress. Head/Face: Normocephalic, atraumatic. Cardiovascular: Regular rate and rhythm with a normal S1 and S2. No gallops, murmurs, or rubs. Normal PMI, no JVD. No pulse deficits. Respiratory: Lungs have equal breath sounds bilaterally, clear to auscultation and percussion. No rales, rhonchi or wheezes noted. No increased work of breathing, no retractions or nasal flaring. Abdomen/GI: Soft, non-tender, with normal bowel sounds. No distension or tympany. No guarding or rebound. No evidence of tenderness throughout. Back: No spinal tenderness. No costovertebral tenderness. Full range of motion. Skin: Warm, dry with normal turgor. Normal color with no rashes, no lesions, and no evidence of cellulitis. MS/ Extremity: Pulses equal, no cyanosis. Neurovascular intact. Full, normal range of motion. Neuro: Awake and alert, GCS 15, oriented to person, place, time, and situation. Motor strength 5/5 in all extremities. Sensory grossly intact. Normal gait. Vital Signs: 15:00 BP 149 / 92; Pulse 100; Resp 16; Temp 97.9; Pulse Ox 96% on R/A; Weight 70.31 kg; iw Height 5 ft. 7 in. (170.18 cm); 15:00 Body Mass Index 24.28 (70.31 kg, 170.18 cm) iw MDM: 14:52 Patient medically screened. [facility] 15:10 Differential diagnosis: non-specific abd pain. Data reviewed: vital signs, nurses jh7 notes. I considered the following discharge prescriptions or medication management in the emergency department Medications were administered in the Emergency Department. See MAR. Test considered but Not performed: Labs: Patient declined. Care significantly affected by the following chronic conditions: Hypertension, Chronic abdominal pain. Counseling: I had a detailed discussion with the patient and/or guardian regarding: the historical points, exam findings, and any diagnostic results supporting the discharge/admit diagnosis, to return to the emergency department if symptoms worsen or persist or if there are any questions or concerns that arise at home. Administered Medications: 15:07 Drug: Zofran (ondansetron) 4 mg Route: IM; Site: right ventrogluteal; iw Disposition: 18:41 Co-signature as Attending Physician, Wilfrid Singh DO I was immediately available on-site ms3 in the Emergency Department for consultation in the care of the patient. Disposition Summary: 05/01/22 15:13 Discharge Ordered Location: Home [facility] Problem: an ongoing problem [facility] Symptoms: are unchanged [facility] Condition: Stable [facility] Diagnosis - Nausea 7 Followup: [facility] - With: Private Physician - When: 2 - 3 days - Reason: Recheck today's complaints Discharge Instructions: - Discharge Summary Sheet jh7 - Nausea, Adult [facility] Forms: - Medication Reconciliation Form 7 - Thank You Letter [facility] Prescriptions: - ondansetron 4 mg Oral tablet,disintegrating - place 1 tablet by TRANSLINGUAL route 4 times per day As needed; 15 tablet; [facility] Refills: 0, Product Selection Permitted Signatures: Therese Logan, RN RN iw Wilfrid Singh DO DO ms3 Viridiana Peters FNP TRANSPORTATION DRIVER [facility]
[2022-05-01 15:56] VITALS: BP 149/92; TEMP 97.9; O2SAT 96
== END 2022-05-01 15:17 | disposition home or self-care (01) ==
LOC: ER 14:45
DX: R11.0 Nausea (principal)
CPT/HCPCS: 96372; 99283; J2405

== ENCOUNTER 2022-05-04 10:41 | Emergency (ER) | payer OTHER ==
--- OUTSIDE RECORDS SUMMARY | 2022-05-04 10:54 | XMS REPORT | Continuity of Care Document ---
:1960 Author Organization [facility] t Address [address] [place] [address] Care Team Providers Name Role Phone [facility]pless Primary Care Physician MATT SIMPSON Attending Clinician Unavailable MATT SIMPSON Attending Clinician Unavailable Doctor Unassigned, [employer] Attending Clinician Unavailable WALLY KRISHNAMURTHY Attending Clinician Unavailable Natacha Brewster Attending Clinician Payers Payer Name Policy Type Policy Number Effective Date Expiration Date Sarina castelan [facility] [id number] 2017 00:00:00 PLUS Problems This patient has [...] ers OPHEN INGREDI 07-27 ity of 00:00: [place] [facility] Propensi Inactiv Reductas ty to e 2-28 e adverse 00:00: Inhibito reaction 00 rs to drug Nitrogly Propensi Active 2017-03 cerin ty to 1-08 adverse 00:00: reaction 00 to drug Social History Social Habit Start Date Stop Date Quantity Comments Source Alcohol intake 2016-05-01 2016-05-01 Current [facility] es 00:00:00 00:00:00 non-drinker of Medical nter alcohol (finding) Sex Assigned At [birth year] [facility] 00:00:00 00:00:00 [facility] Smoking Status Start Date Stop Date Source Current every day smoker 2016-05-01 00:00:00 [facility] Medications Ordered Filled Start Stop Current [...] anjelica [facility] OXcarbazepi 2017-0 Yes 600mg Q.[id number] Take [address] [address] ne 2-23 [id number] [facility] (TR[facility]) 10:23: 3D mouth 3 Med ical 600 MG 59 (three) Center tablet times daily. PARoxetine 2017-0 Yes 40mg QD Take [address] (PAXIL) 40 2-23 [facility] tablet 10:23: nightly. [address] 2017-0 Yes 600mg Q.55058637 Take [address] ne 2-23 [id number] [facility] (TRILEPTAL) 10:23: 3D mouth 3 Med ical 600 MG 59 (three) Center tablet times daily. PARoxetine 2017-0 Yes 40mg QD Take [address] (PAXIL) 40 2-23 [facility] tablet 10:23: nightly. [address] 2017-0 Yes 600mg Q.10483679 Take [address] ne 2-23 [id number] [facility] (TRILEPTAL) 10:23: 3D mouth 3 Med ical 600 MG 59 (three) Center tablet times daily. PARoxetine 2017-0 Yes 40mg QD Take [address] (PAXIL) 40 2-23 [facility] tablet 10:23: nightly. [address] 2017-0 Yes 600mg Q.93269835 Take [address] ne 2-23 1354492476 [facility] (TRILEPTAL) 10:23: 3D mouth 3 Med ical 600 MG 59 (three) Center tablet times daily. PARoxetine 2017-0 Yes 40mg QD Take [address] (PAXIL) 40 2-23 [facility] tablet 10:23: nightly. [address] 2017-0 Yes 600mg Q.62439818 Take [address] ne 2-23 1303743884 [facility] by [facility] (TRILEPTAL) 10:23: 3D mouth 3 Med ical 600 MG 59 (three) Center tablet times daily. PARoxetine 2017-0 Yes 40mg QD Take [address] (PAXIL) 40 2-23 [facility] tablet 10:23: nightly. [address] 2017-0 Yes 600mg Q.59569799 Take [address] ne 2-23 [id number] [facility] (TRILEPTAL) 10:23: 3D mouth 3 Med ical 600 MG 59 (three) Center tablet times daily. PARoxetine 2017-0 Yes 40mg QD Take [address] (PAXIL) 40 2-23 [facility] tablet 10:23: nightly. [address] 2017-0 Yes 600mg Q.90695796 Take [address] ne 2-23 [id number] [facility] (TRILEPTAL) 10:23: 3D mouth 3 Med ical 600 MG 59 (three) Center tablet times daily. PARoxetine 2017-0 Yes 40mg QD Take [address] (PAXIL) 40 2-23 [facility] tablet 10:23: nightly. [address] 2017-0 Yes 600mg Q.16635071 Take [address] ne 2-23 [id number] [facility] (TRILEPTAL) 10:23: 3D mouth 3 Med ical 600 MG 59 (three) Center tablet times daily. PARoxetine 2017-0 Yes 40mg QD Take [address] (PAXIL) 40 2-23 [facility] tablet 10:23: nightly. [address] 2017-0 Yes 600mg Q.18940714 Take [address] ne 2-23 [id number] [facility] (TRILEPTAL) 10:23: 3D mouth 3 Med ical 600 MG 59 (three) Center tablet times daily. PARoxetine 2017-0 Yes 40mg QD Take [address] (PAXIL) 40 2-23 by [facility] tablet 10:23: nightly. [address] OXcarbazepi 2017-0 Yes 600mg Q.30123737 Take [address] ne 2-23 [id number] [facility] (TRILEPTAL) 10:23: 3D mouth 3 Med ical 600 MG 59 (three) Center tablet times daily. PARoxetine 2017-0 Yes 40mg QD Take [address] (PAXIL) 40 2-23 by mouth [facility] tablet 10:23: nightly. [address] OXcarbazepi 2017-0 Yes 600mg Q.92753754 Take [address] ne 2-23 [id number] mg [facility] (TRILEPTAL) 10:23: 3D mouth 3 Med ical 600 MG 59 (three) Center tablet times daily. OXcarbazepi 2017-0 Yes 600mg Q.68274824 Take [address] ne 2-23 5653535095 [facility] by [facility] (TRILEPTAL) 10:23: 3D mouth 3 Med ical 600 MG 59 (three) Center tablet times daily. PARoxetine 2017-0 Yes 40mg QD Take [address] (PAXIL) 40 2-23 by [facility] MG tablet 10:23: nightly. Medi anjelica [facility] Center OXcarbazepi 2017-0 Yes 600mg Q.37422940 Take [address] ne 2-23 6362343816 mg by [facility] (TRILEPTAL) 10:23: 3D mouth 3 Med ical 600 MG 59 (three) Center tablet times daily. PARoxetine 2017-0 Yes 40mg QD Take [address] (PAXIL) 40 2-23 by mouth [facility] MG tablet 10:23: nightly. [facility] anjelica 59 Center OXcarbazepi 2017-0 Yes 600mg Q.93036413 Take [address] ne 2-23 [id number] mg [facility] (TRILEPTAL) 10:23: 3D mouth 3 Med ical 600 MG 59 (three) Center tablet times daily. PARoxetine 2017-0 Yes 40mg QD Take [address] (PAXIL) 40 2-23 by [facility] MG tablet 10:23: nightly. [facility] anjelica 59 Center PARoxetine 2017-0 Yes 40mg QD Take [address] (PAXIL) 40 2-23 by mouth [facility] MG tablet 10:23: nightly. [facility] anjelica 59 Center OXcarbazepi 2017-0 Yes 600mg Q.24075175 Take [address] ne 2-23 [id number] mg by [facility] (TRILEPTAL) 10:23: 3D mouth 3 Med ical 600 MG 59 (three) Center tablet times daily. PARoxetine 2017-0 Yes 40mg QD Take [address] (PAXIL) 40 2-23 by [facility] tablet 10:23: nightly. Medi anjelica 59 Center OXcarbazepi 2017-0 Yes 600mg Q.59669298 Take [address] ne 2-23 [id number] mg by [facility] (TRILEPTAL) 10:23: 3D mouth 3 Med ical 600 MG 59 (three) Center tablet times daily. PARoxetine 2017-0 Yes 40mg QD Take [address] (PAXIL) 40 2-23 by [facility] tablet 10:23: nightly. [facility] [address] [place] OXcarbazepi 2017-0 Yes 600mg Q.68096142 Take [address] ne 2-23 [id number] mg by [facility] (TRILEPTAL) 10:23: 3D mouth 3 Med ical 600 MG 59 (three) Center tablet times daily. PARoxetine 2017-0 Yes 40mg QD Take [address] (PAXIL) 40 2-23 by mouth [facility] MG tablet 10:23: nightly. [facility] [address] [place] OXcarbazepi 2017-0 Yes 600mg Q.38687560 Take [address] ne 2-23 [id number] mg by [facility] (TRILEPTAL) 10:23: 3D mouth 3 Med ical 600 MG 59 (three) Center tablet times daily. PARoxetine 2017-0 Yes 40mg QD Take [address] (PAXIL) 40 2-23 by [facility] tablet 10:23: nightly. [facility] [address] [place] OXcarbazepi 2017-0 Yes 600mg Q.60392719 Take [address] ne 2-23 [id number] mg by [facility] (TRILEPTAL) 10:23: 3D mouth 3 Med ical 600 MG 59 (three) Center tablet times daily. PARoxetine 2017-0 Yes 40mg QD Take [address] (PAXIL) 40 2-23 by mouth [facility] tablet 10:23: nightly. [facility] [address] [place] OXcarbazepi 2017-0 Yes 600mg Q.42919459 Take [address] ne 2-23 [id number] mg by [facility] (TRILEPTAL) 10:23: 3D mouth 3 Med ical 600 MG 59 (three) Center tablet times daily. PARoxetine 2017-0 Yes 40mg QD Take [address] (PAXIL) 40 2-23 by mouth [facility] tablet 10:23: nightly. [facility] [address] [place] OXcarbazepi 2017-0 Yes 600mg Q.21652875 Take [address] ne 2-23 [id number] mg by [facility] (TRILEPTAL) 10:23: 3D mouth 3 Med ical 600 MG 59 (three) Center tablet times daily. PARoxetine 2017-0 Yes 40mg QD Take [address] (PAXIL) 40 2-23 by mouth [facility] tablet 10:23: nightly. [facility] [address] [place] OXcarbazepi 2017-0 Yes 600mg Q.76451648 Take [address] ne 2-23 [id number] mg by [facility] (TRILEPTAL) 10:23: 3D mouth 3 Med ical 600 MG 59 (three) Center tablet times daily. OXcarbazepi 2017-0 Yes 600mg Q.37273775 Take [address] ne 2-23 [id number] mg by [facility] (TRILEPTAL) 10:23: 3D mouth 3 Med ical 600 MG 59 (three) Center tablet times daily. PARoxetine 2017-0 Yes 40mg QD Take [address] (PAXIL) 40 2-23 by [facility] tablet 10:23: nightly. [address] LORazepam 2017-0 Yes 1mg Take 1 [...] Goal Plan of Care Note [code = 81604-8] Goal Plan of Care Note [code = 63138-2] Goal Plan of Care Note [code = 18585-2] Goal Plan of Care Note [code = 11795-9] Goal Plan of Care Note [code = 82931-5] Goal Plan of Care Note [code = 93211-1] Goal Plan of Care Note [code = 28181-8] Goal Plan of Care Note [code = 14942-6] Goal Plan of Care Note [code = 12507-0] Goal Plan of Care Note [code = 04246-4] Goal Plan of Care Note [code = 12943-1] Goal Plan of Care Note [code = 70182-8] Goal Plan of Care Note [code = 10350-5] Goal Plan of Care Note [code = 75743-7] Goal Plan of Care Note [code = 01100-6] Goal Plan of Care Note [code = 88486-0] Goal Plan of Care Note [code = 27543-0] Goal Plan of Care Note [code = 79314-6] Goal Plan of Care Note [code = 23890-9] Goal Plan of Care Note [code = 94246-6] Goal Plan of Care Note [code = 54977-8] Goal Plan of Care Note [code = 06848-8] Goal Plan of Care Note [code = 73323-0] Goal Plan of Care Note [code = 11313-6] Goal Plan of Care Note [code = 83719-3] Goal Plan of Care Note [code = 53401-9] Goal Plan of Care Note [code = 62162-4] Goal Plan of Care Note [code = 36815-8] Goal Plan of Care Note [code = 14717-7] Goal Plan of Care Note [code = 65905-1] Goal Plan of Care Note [code = 55718-9] Goal Plan of Care Note [code = 49150-0] Goal Plan of Care Note [code = 18173-9] Goal Plan of Care Note [code = 51426-7] Goal Plan of Care Note [code = 10972-5] Goal Plan of Care Note [code = 67605-5] Goal Plan of Care Note [code = 39489-4] Goal Plan of Care Note [code = 79800-5] Goal Plan of Care Note [code = 38373-2] Goal Plan of Care Note [code = 25452-2] Goal Plan of Care Note [code = 49261-8] Goal Plan of Care Note [code = 51804-6] Goal Plan of Care Note [code = 01581-3] Goal Plan of Care Note [code = 19658-6] Goal Plan of Care Note [code = 14102-6] Goal Plan of Care Note [code = 03529-9] Goal Plan of Care Note [code = 32773-6] Goal Plan of Care Note [code = 18393-2] Goal Plan of Care Note [code = 98316-2] Goal Plan of Care Note [code = 90320-1] Goal Plan of Care Note [code = 90719-7] Goal Plan of Care Note [code = 55493-0] Goal Plan of Care Note [code = 22598-4] Goal Plan of Care Note [code = 78053-6] Goal Plan of Care Note [code = 36632-7] Goal Plan of Care Note [code = 71465-2] Goal Plan of Care Note [code = 78769-9] Goal Plan of Care Note [code = 00116-5] Goal Plan of Care Note [code = 91594-3] Goal Plan of Care Note [code = 19138-4] Goal Plan of Care Note [code = 71764-7] Goal Plan of Care Note [code = 74174-4] Goal Plan of Care Note [code = 92524-8] Goal Plan of Care Note [code = 79588-2] Goal Plan of Care Note [code = 86949-0] Goal Plan of Care Note [code = 54657-0] Goal Plan of Care Note [code = 34078-3] Goal Plan of Care Note [code = 49913-1] Goal Plan of Care Note [code = 31721-0] Goal Plan of Care Note [code = 34104-2] Goal Plan of Care Note [code = 77697-6] Goal Plan of Care Note [code = 54411-6] Goal Plan of Care Note [code = 18482-2] Goal Plan of Care Note [code = 43377-7] Goal Plan of Care Note [code = 14955-0] Goal Plan of Care Note [code = 17872-3] Goal Plan of Care Note [code = 59799-4] Goal Plan of Care Note [code = 44352-3] Goal Plan of Care Note [code = 05221-0] Goal Plan of Care Note [code = 84425-0] Goal Plan of Care Note [code = 96902-9] Goal Plan of Care Note [code = 46439-5] Goal Plan of Care Note [code = 63374-0] Goal Plan of Care Note [code = 62537-5] Goal Plan of Care Note [code = 70162-8] Goal Plan of Care Note [code = 40263-7] Goal Plan of Care Note [code = 51657-9] Goal Plan of Care Note [code = 68549-7] Goal Plan of Care Note [code = 90989-1] Goal Plan of Care Note [code = 48959-0] Goal Plan of Care Note [code = 59764-3] Goal Plan of Care Note [code = 74190-3] Goal Plan of Care Note [code = 35322-9] Goal Plan of Care Note [code = 15167-7] Goal Plan of Care Note [code = 20415-0] Goal Plan of Care Note [code = 32087-4] Goal Plan of Care Note [code = 33541-8] Goal Plan of Care Note [code = 74295-3] Goal Plan of Care Note [code = 19248-6] Goal Plan of Care Note [code = 61595-0] Goal Plan of Care Note [code = 55027-5] Goal Plan of Care Note [code = 21103-8] Goal Plan of Care Note [code = 29589-5] Goal Plan of Care Note [code = 46390-2] Goal Plan of Care Note [code = 68517-0] Goal Plan of Care Note [code = 31165-3] Goal Plan of Care Note [code = 40326-4] Goal Plan of Care Note [code = 77267-1] Goal Plan of Care Note [code = 48451-9] Goal Plan of Care Note [code = 00955-7] Goal Plan of Care Note [code = 19737-8] Goal Plan of Care Note [code = 58020-4] Goal Plan of Care Note [code = 01744-1] Goal Plan of Care Note [code = 32650-1] Goal Plan of Care Note [code = 67377-9] Goal Plan of Care Note [code = 72618-9] Goal Plan of Care Note [code = 79905-0] Goal Plan of Care Note [code = 94024-5] Goal Plan of Care Note [code = 45956-3] Goal Plan of Care Note [code = 67645-9] Goal Plan of Care Note [code = 35862-4] Goal Plan of Care Note [code = 35937-2] Goal Plan of Care Note [code = 22979-0] Goal Plan of Care Note [code = 04192-9] Goal Plan of Care Note [code = 52448-7] Goal Plan of Care Note [code = 10180-9] Goal Plan of Care Note [code = 63759-8] Goal Plan of Care Note [code = 03929-1] Goal Plan of Care Note [code = 49710-3] Goal Plan of Care Note [code = 28077-9] Goal Plan of Care Note [code = 22181-8] Goal Plan of Care Note [code = 85737-9] Goal Plan of Care Note [code = 08251-9] Goal Plan of Care Note [code = 56698-3] Goal Plan of Care Note [code = 41176-1] Goal Plan of Care Note [code = 63848-7] Goal Plan of Care Note [code = 87192-6] Goal Plan of Care Note [code = 21293-2] Goal Plan of Care Note [code = 58799-2] Goal Plan of Care Note [code = 96087-6] Goal Plan of Care Note [code = 59966-6] Goal Plan of Care Note [code = 77862-9] Goal Plan of Care Note [code = 40706-5] Goal Plan of Care Note [code = 17583-5] Goal Plan of Care Note [code = 44539-4] Goal Plan of Care Note [code = 77307-0] Goal Plan of Care Note [code = 45018-3] Goal Plan of Care Note [code = 75155-6] Goal Plan of Care Note [code = 85727-1] Goal Plan of Care Note [code = 63637-9] Goal Plan of Care Note [code = 26730-9] Goal Plan of Care Note [code = 37794-4] Goal Plan of Care Note [code = 89404-5] Goal Plan of Care Note [code = 29317-4] Goal Plan of Care Note [code = 24194-6] Goal Plan of Care Note [code = 99819-2] Goal Plan of Care Note [code = 45968-5] Goal Plan of Care Note [code = 60627-1] Goal Plan of Care Note [code = 44852-5] Goal Plan of Care Note [code = 94627-2] Goal Plan of Care Note [code = 89934-0] Goal Plan of Care Note [code = 17016-7] Goal Plan of Care Note [code = 77353-9] Goal Plan of Care Note [code = 79613-0] Goal Plan of Care Note [code = 20885-2] Goal Plan of Care Note [code = 17400-1] Goal Plan of Care Note [code = 70355-1] Goal Plan of Care Note [code = 88366-7] Goal Plan of Care Note [code = 50486-1] Goal Plan of Care Note [code = 41166-2] Goal Plan of Care Note [code = 22773-4] Goal Plan of Care Note [code = 07945-1] Goal Plan of Care Note [code = 74591-4] Goal Plan of Care Note [code = 37109-7] Goal Plan of Care Note [code = 99340-3] Goal Plan of Care Note [code = 97321-5] Goal Plan of Care Note [code = 76981-6] Goal Plan of Care Note [code = 62131-8] Goal Plan of Care Note [code = 11035-0] Goal Plan of Care Note [code = 66448-6] Goal Plan of Care Note [code = 41817-9] Goal Plan of Care Note [code = 91527-4] Goal Plan of Care Note [code = 61547-3] Goal Plan of Care Note [code = 43600-8] Goal Plan of Care Note [code = 89000-8] Goal Plan of Care Note [code = 80863-2] Goal Plan of Care Note [code = 43283-1] Goal Plan of Care Note [code = 46916-2] Goal Plan of Care Note [code = 08258-1] Goal Plan of Care Note [code = 85406-1] Goal Plan of Care Note [code = 88109-6] Goal Plan of Care Note [code = 99403-7] Goal Plan of Care Note [code = 19674-0] Goal Plan of Care Note [code = 62712-7] Goal Plan of Care Note [code = 63751-5] Goal Plan of Care Note [code = 81162-7] Goal Plan of Care Note [code = 08191-6] Goal Plan of Care Note [code = 96480-4] Goal Plan of Care Note [code = 85709-1] Goal Plan of Care Note [code = 46055-6] Goal Plan of Care Note [code = 81684-4] Goal Plan of Care Note [code = 93621-1] Goal Plan of Care Note [code = 12297-7] Goal Plan of Care Note [code = 90470-0] Goal Plan of Care Note [code = 09647-7] Goal Plan of Care Note [code = 87102-4] Goal Plan of Care Note [code = 94158-3] Goal Plan of Care Note [code = 89327-4] Encounters Start End Encounter Admission Attending Care Care Encounter Source Date/Time Date/Time Type Type Clinicians Facility Department ID 2021-06-01 Outpatient [facility] [id number] Skylar 01:36:29 [id number] [facility] 2022-02-11 2022-02-11 Outpatient SFA LYDIA [id number] Shannon Foster 09:04:48 09:04:48 1206 F Jerman 2022-02-10 2022-02-10 Outpatient SFA SFA [id number] 022 Cristian 09:29:34 09:29:34 1205 F Jerman 2022-02-10 2022-02-10 Outpatient [id number]- [id number] 7a75m4-0 00:00:00 00:00:00 Visit 4089-4cab 089-4cab-9 -9jy6-x2a bf5-p8i151 228yoly56 bafa93 2022-01-10 2022-01-10 Outpatient SFA SFA [id number] 022 Cristian 09:16:14 09:16:14 1104 F Jerman 2022-01-10 2022-01-10 Outpatient y0elwho8- [id number] f2 accaa6-a 00:00:00 00:00:00 Visit aca9-4c83 ca9-4c83-a -a0or-xk2 7eb-bc13f3 3i3a006d1 f032f9 2021-12-19 2021-12-19 Outpatient SFA SFA [id number] 022 Cristian 16:11:31 16:11:31 1013 F Jerman 2021-12-19 2021-12-19 Outpatient [id number] 466cae-[id number] 00:00:00 00:00:00 Visit d120-725j 770-441f-a -adae-62b amelia-62bace qxbfd45dx fd81af 2021-09-17 2021-09-17 Outpatient hhm7pzkg- [id number] n3twip-3 00:00:00 00:00:00 Visit 935a-4f50 35a-4f50-b -g20r-y8z 77d-c2ba85 a484046d6 1264a6 2020-08-03 2020-08-03 Outpatient MATT VÁSQUEZ [facility] [id number] [facility] 10:00:00 10:00:00 MATT SIMPSON [facility] 2020-07-25 2020-07-25 Orders Doctor FISH [id number] 00:00:00 00:00:00 Only Unassigned, BK 350.1.13.10 [employer] 4.2.7.2.686 [id number] 2019-09-26 2019-09-26 Outpatient R MARSRush, [facility] [id number] [facility] 16:00:00 16:00:00 WALLY yeager [facility] 2018-10-21 2018-10-21 Telephone Nazanin, [facility] [id number] 00:00:00 00:00:00 Natacha Nguyen 350.1.13.10 [place] 4.2.7.2.686 [facility] [id number] nal 204 Building Results Test Description Test Time Test Comments Results Result Comments Source TSH, THIRD GENERATION 2021-06-27 05:15:49 Test Item Value Reference Range Interpretation Comme nts TSH, THIRD GENERATION (test code = 2821) 2.080 UIU/ML 0.400-4.100 HEMOGLOBIN [id number] 03:46:00 Test Item Value Reference Range Interpretation Comments HEMOGLOBIN A1c (test 6.6 % 4.2-5.6 H [employer] DIABETES code = 66098) ASSOCIATION IDELINES FOR HGB A1C: PREDIABETES/INC REASED [...] INDICATED, ALL TESTING PER FORMED ATCLINICAL PATH [facility] [place]. [address] [place] [address] 1355 LABORATORY DIRE CTOR: DIANA RUSS M.D. CLIA NUMBER [id number] [place]. [id number] LIPID [id number] 02:59:52 Test Item Value Reference Range Interpretation [...] MOREINFORMATION , SEE CLIENT ANNOUNCE MENT AT [email or web address] /CalcLDL-[email or web address] RISK RATIO LDL/HDL 4.02 RATIO <3.22 H (test code = 2238) [id number] 00:00:00 Test Item Value Reference Range Interpretation Comments TSH, THIRD GENERATION (test code 2.080 UIU/ML = 2821) [id number] 00:00:00 Test Item Value Reference Range Interpretation Comments TSH, THIRD GENERATION (test code 2.080 UIU/ML = 2821) [id number] 00:00:00 Test Item Value Reference Range Interpretation Comments TSH, THIRD GENERATION (test code 2.080 UIU/ML = 2821) LIPID [id number] 00:00:00 Test Item Value Reference Range Interpretation Comments CHOLESTEROL (test code = 2210) 292 MG/DL TRIGLYCERIDES (test code = 2232) 184 MG/DL HDL CHOLESTEROL (test code = 2220) 51 MG/DL CALC LDL CHOL (test code = 2237) 205 MG/DL RISK RATIO LDL/HDL (test code = 4.02 RATIO 2238) LIPID [id number] 00:00:00 Test Item Value Reference Range Interpretation Comments CHOLESTEROL (test code = 2210) 292 MG/DL TRIGLYCERIDES (test code = 2232) 184 MG/DL HDL CHOLESTEROL (test code = 2220) 51 MG/DL CALC LDL CHOL (test code = 2237) 205 MG/DL RISK RATIO LDL/HDL (test code = 4.02 RATIO 2238) HEMOGLOBIN [id number] 00:00:00 Test Item Value Reference Range Interpretation Comments HEMOGLOBIN A1c (test code = 73997) 6.6 % HEMOGLOBIN [id number] 00:00:00 Test Item Value Reference Range Interpretation Comments HEMOGLOBIN A1c (test code = 60350) 6.6 % HEMOGLOBIN [id number] 00:00:00 Test Item Value Reference Range Interpretation Comments HEMOGLOBIN A1c (test code = 73034) 6.6 % [id number] 00:00:00 Test Item Value Reference Range Interpretation Comments TSH, THIRD GENERATION (test code 2.080 UIU/ML = 2821) [id number] 00:00:00 Test Item Value Reference Range Interpretation Comments TSH, THIRD GENERATION (test code 2.080 UIU/ML = 2821) [id number] 00:00:00 Test Item Value Reference Range Interpretation Comments TSH, THIRD GENERATION (test code 2.080 UIU/ML = 2821) LIPID [id number] 00:00:00 Test Item Value Reference Range Interpretation Comments CHOLESTEROL (test code = 2210) 292 MG/DL TRIGLYCERIDES (test code = 2232) 184 MG/DL HDL CHOLESTEROL (test code = 2220) 51 MG/DL CALC LDL CHOL (test code = 2237) 205 MG/DL RISK RATIO LDL/HDL (test code = 4.02 RATIO 2238) LIPID [id number] 00:00:00 Test Item Value Reference Range Interpretation Comments CHOLESTEROL (test code = 2210) 292 MG/DL TRIGLYCERIDES (test code = 2232) 184 MG/DL HDL CHOLESTEROL (test code = 2220) 51 MG/DL CALC LDL CHOL (test code = 2237) 205 MG/DL RISK RATIO LDL/HDL (test code = 4.02 RATIO 2238) HEMOGLOBIN [id number] 00:00:00 Test Item Value Reference Range Interpretation Comments HEMOGLOBIN A1c (test code = 98156) 6.6 % HEMOGLOBIN [id number] 00:00:00 Test Item Value Reference Range Interpretation Comments HEMOGLOBIN A1c (test code = 39881) 6.6 % HEMOGLOBIN [id number] 00:00:00 Test Item Value Reference Range Interpretation Comments HEMOGLOBIN A1c (test code = 64584) 6.6 % [id number] 00:00:00 Test Item Value Reference Range Interpretation Comments TSH, THIRD GENERATION (test code 2.080 UIU/ML = 2821) [id number] 00:00:00 Test Item Value Reference Range Interpretation Comments TSH, THIRD GENERATION (test code 2.080 UIU/ML = 2821) LIPID [id number] 00:00:00 Test Item Value Reference Range Interpretation Comments CHOLESTEROL (test code = 2210) 292 MG/DL TRIGLYCERIDES (test code = 2232) 184 MG/DL HDL CHOLESTEROL (test code = 2220) 51 MG/DL CALC LDL CHOL (test code = 2237) 205 MG/DL RISK RATIO LDL/HDL (test code = 4.02 RATIO 2238) HEMOGLOBIN [id number] 00:00:00 Test Item Value Reference Range Interpretation Comments HEMOGLOBIN A1c (test code = 27669) 6.6 % HEMOGLOBIN [id number] 00:00:00 Test Item Value Reference Range Interpretation Comments HEMOGLOBIN A1c (test code = 65299) 6.6 % [id number] 00:00:00 Test Item Value Reference Range Interpretation Comments TSH, THIRD GENERATION (test code 2.080 UIU/ML = 2821) [id number] 00:00:00 Test Item Value Reference Range Interpretation Comments TSH, THIRD GENERATION (test code 2.080 UIU/ML = 2821) [id number] 00:00:00 Test Item Value Reference Range Interpretation Comments TSH, THIRD GENERATION (test code 2.080 UIU/ML = 2821) LIPID [id number] 00:00:00 Test Item Value Reference Range Interpretation Comments CHOLESTEROL (test code = 2210) 292 MG/DL TRIGLYCERIDES (test code = 2232) 184 MG/DL HDL CHOLESTEROL (test code = 2220) 51 MG/DL CALC LDL CHOL (test code = 2237) 205 MG/DL RISK RATIO LDL/HDL (test code = 4.02 RATIO 2238) LIPID [id number] 00:00:00 Test Item Value Reference Range Interpretation Comments CHOLESTEROL (test code = 2210) 292 MG/DL TRIGLYCERIDES (test code = 2232) 184 MG/DL HDL CHOLESTEROL (test code = 2220) 51 MG/DL CALC LDL CHOL (test code = 2237) 205 MG/DL RISK RATIO LDL/HDL (test code = 4.02 RATIO 2238) HEMOGLOBIN [id number] 00:00:00 Test Item Value Reference Range Interpretation Comments HEMOGLOBIN A1c (test code = 02721) 6.6 % HEMOGLOBIN [id number] 00:00:00 Test Item Value Reference Range Interpretation Comments HEMOGLOBIN A1c (test code = 23724) 6.6 % HEMOGLOBIN [id number] 00:00:00 Test Item Value Reference Range Interpretation Comments HEMOGLOBIN A1c (test code = 95104) 6.6 % HEMOGLOBIN [id number] 00:00:00 Test Item Value Reference Range Interpretation Comments HEMOGLOBIN A1c (test code = 83695) 6.8 % HEMOGLOBIN [id number] 00:00:00 Test Item Value Reference Range Interpretation Comments HEMOGLOBIN A1c (test code = 12607) 6.8 % HEMOGLOBIN [id number] 00:00:00 Test Item Value Reference Range Interpretation Comments HEMOGLOBIN A1c (test code = 21948) 6.8 % LIPID [id number] 00:00:00 Test Item Value Reference Range Interpretation Comments CHOLESTEROL (test code = 2210) 303 MG/DL TRIGLYCERIDES (test code = 2232) 191 MG/DL HDL CHOLESTEROL (test code = 2220) 61 MG/DL CALC LDL CHOL (test code = 2237) 205 MG/DL RISK RATIO LDL/HDL (test code = 3.36 RATIO 2238) LIPID [id number] 00:00:00 Test Item Value Reference Range Interpretation Comments CHOLESTEROL (test code = 2210) 303 MG/DL TRIGLYCERIDES (test code = 2232) 191 MG/DL HDL CHOLESTEROL (test code = 2220) 61 MG/DL CALC LDL CHOL (test code = 2237) 205 MG/DL RISK RATIO LDL/HDL (test code = 3.36 RATIO 2238) [id number] 00:00:00 Test Item Value Reference Range Interpretation Comments TSH, THIRD GENERATION (test code 0.769 UIU/ML = 2821) [id number] 00:00:00 Test Item Value Reference Range Interpretation Comments TSH, THIRD GENERATION (test code 0.769 UIU/ML = 2821) [id number] 00:00:00 Test Item Value Reference Range Interpretation Comments TSH, THIRD GENERATION (test code 0.769 UIU/ML = 2821) COMPREHENSIVE METABOLIC [id number] 00:00:00 Test Item Value Reference Range Interpretation Comments GLUCOSE (test code = 2217) 131 MG/DL BUN (test code = 2208) 13 MG/DL CREATININE (test code = 2214) 0.65 MG/DL eGFR AMER. (test code 113 ML/MIN/1.73 = 00613) eGFR NON- AMER. (test 97 ML/MIN/1.73 code = 72380) CALC BUN/CREAT (test code = 20 RATIO [...] code = 2219) 23 U/L COMPREHENSIVE METABOLIC [id number] 00:00:00 Test Item Value Reference Range Interpretation Comments GLUCOSE (test code = 2217) 131 MG/DL BUN (test code = 2208) 13 MG/DL CREATININE (test code = 2214) 0.65 MG/DL eGFR AMER. (test code 113 ML/MIN/1.73 = 13505) eGFR NON- AMER. (test 97 ML/MIN/1.73 code = 87120) CALC BUN/CREAT (test code = 20 RATIO [...] (test code = 2219) 23 U/L HEMOGLOBIN [id number] 00:00:00 Test Item Value Reference Range Interpretation Comments HEMOGLOBIN A1c (test code = 29016) 6.8 % HEMOGLOBIN [id number] 00:00:00 Test Item Value Reference Range Interpretation Comments HEMOGLOBIN A1c (test code = 32342) 6.8 % HEMOGLOBIN [id number] 00:00:00 Test Item Value Reference Range Interpretation Comments HEMOGLOBIN A1c (test code = 35669) 6.8 % LIPID [id number] 00:00:00 Test Item Value Reference Range Interpretation Comments CHOLESTEROL (test code = 2210) 303 MG/DL TRIGLYCERIDES (test code = 2232) 191 MG/DL HDL CHOLESTEROL (test code = 2220) 61 MG/DL CALC LDL CHOL (test code = 2237) 205 MG/DL RISK RATIO LDL/HDL (test code = 3.36 RATIO 2238) LIPID [id number] 00:00:00 Test Item Value Reference Range Interpretation Comments CHOLESTEROL (test code = 2210) 303 MG/DL TRIGLYCERIDES (test code = 2232) 191 MG/DL HDL CHOLESTEROL (test code = 2220) 61 MG/DL CALC LDL CHOL (test code = 2237) 205 MG/DL RISK RATIO LDL/HDL (test code = 3.36 RATIO 2238) [id number] 00:00:00 Test Item Value Reference Range Interpretation Comments TSH, THIRD GENERATION (test code 0.769 UIU/ML = 2821) [id number] 00:00:00 Test Item Value Reference Range Interpretation Comments TSH, THIRD GENERATION (test code 0.769 UIU/ML = 2821) [id number] 00:00:00 Test Item Value Reference Range Interpretation Comments TSH, THIRD GENERATION (test code 0.769 UIU/ML = 2821) COMPREHENSIVE METABOLIC [id number] 00:00:00 Test Item Value Reference Range Interpretation Comments GLUCOSE (test code = 2217) 131 MG/DL BUN (test code = 2208) 13 MG/DL CREATININE (test code = 2214) 0.65 MG/DL eGFR AMER. (test code 113 ML/MIN/1.73 = 70830) eGFR NON- AMER. (test 97 ML/MIN/1.73 code = 98841) CALC BUN/CREAT (test code = 20 RATIO [...] code = 2219) 23 U/L COMPREHENSIVE METABOLIC [id number] 00:00:00 Test Item Value Reference Range Interpretation Comments GLUCOSE (test code = 2217) 131 MG/DL BUN (test code = 2208) 13 MG/DL CREATININE (test code = 2214) 0.65 MG/DL eGFR AMER. (test code 113 ML/MIN/1.73 = 23207) eGFR NON- AMER. (test 97 ML/MIN/1.73 code = 16087) CALC BUN/CREAT (test code = 20 RATIO [...] (test code = 2219) 23 U/L HEMOGLOBIN [id number] 00:00:00 Test Item Value Reference Range Interpretation Comments HEMOGLOBIN A1c (test code = 78676) 6.8 % HEMOGLOBIN [id number] 00:00:00 Test Item Value Reference Range Interpretation Comments HEMOGLOBIN A1c (test code = 05111) 6.8 % LIPID [id number] 00:00:00 Test Item Value Reference Range Interpretation Comments CHOLESTEROL (test code = 2210) 303 MG/DL TRIGLYCERIDES (test code = 2232) 191 MG/DL HDL CHOLESTEROL (test code = 2220) 61 MG/DL CALC LDL CHOL (test code = 2237) 205 MG/DL RISK RATIO LDL/HDL (test code = 3.36 RATIO 2238) [id number] 00:00:00 Test Item Value Reference Range Interpretation Comments TSH, THIRD GENERATION (test code 0.769 UIU/ML = 2821) [id number] 00:00:00 Test Item Value Reference Range Interpretation Comments TSH, THIRD GENERATION (test code 0.769 UIU/ML = 2821) COMPREHENSIVE METABOLIC [id number] 00:00:00 Test Item Value Reference Range Interpretation Comments GLUCOSE (test code = 2217) 131 MG/DL BUN (test code = 2208) 13 MG/DL CREATININE (test code = 2214) 0.65 MG/DL eGFR AMER. (test code 113 ML/MIN/1.73 = 22605) eGFR NON- AMER. (test 97 ML/MIN/1.73 code = 09477) CALC BUN/CREAT (test code = 20 RATIO [...] (test code = 2219) 23 U/L HEMOGLOBIN [id number] 00:00:00 Test Item Value Reference Range Interpretation Comments HEMOGLOBIN A1c (test code = 84954) 6.8 % HEMOGLOBIN [id number] 00:00:00 Test Item Value Reference Range Interpretation Comments HEMOGLOBIN A1c (test code = 15024) 6.8 % HEMOGLOBIN [id number] 00:00:00 Test Item Value Reference Range Interpretation Comments HEMOGLOBIN A1c (test code = 35037) 6.8 % LIPID [id number] 00:00:00 Test Item Value Reference Range Interpretation Comments CHOLESTEROL (test code = 2210) 303 MG/DL TRIGLYCERIDES (test code = 2232) 191 MG/DL HDL CHOLESTEROL (test code = 2220) 61 MG/DL CALC LDL CHOL (test code = 2237) 205 MG/DL RISK RATIO LDL/HDL (test code = 3.36 RATIO 2238) LIPID [id number] 00:00:00 Test Item Value Reference Range Interpretation Comments CHOLESTEROL (test code = 2210) 303 MG/DL TRIGLYCERIDES (test code = 2232) 191 MG/DL HDL CHOLESTEROL (test code = 2220) 61 MG/DL CALC LDL CHOL (test code = 2237) 205 MG/DL RISK RATIO LDL/HDL (test code = 3.36 RATIO 2238) [id number] 00:00:00 Test Item Value Reference Range Interpretation Comments TSH, THIRD GENERATION (test code 0.769 UIU/ML = 2821) [id number] 00:00:00 Test Item Value Reference Range Interpretation Comments TSH, THIRD GENERATION (test code 0.769 UIU/ML = 2821) [id number] 00:00:00 Test Item Value Reference Range Interpretation Comments TSH, THIRD GENERATION (test code 0.769 UIU/ML = 2821) COMPREHENSIVE METABOLIC [id number] 00:00:00 Test Item Value Reference Range Interpretation Comments GLUCOSE (test code = 2217) 131 MG/DL BUN (test code = 2208) 13 MG/DL CREATININE (test code = 2214) 0.65 MG/DL eGFR AMER. (test code 113 ML/MIN/1.73 = 39670) eGFR NON- AMER. (test 97 ML/MIN/1.73 code = 73878) CALC BUN/CREAT (test code = 20 RATIO [...] code = 2219) 23 U/L COMPREHENSIVE METABOLIC [id number] 00:00:00 Test Item Value Reference Range Interpretation Comments GLUCOSE (test code = 2217) 131 MG/DL BUN (test code = 2208) 13 MG/DL CREATININE (test code = 2214) 0.65 MG/DL eGFR AMER. (test code 113 ML/MIN/1.73 = 43066) eGFR NON- AMER. (test 97 ML/MIN/1.73 code = 13516) CALC BUN/CREAT (test code = 20 RATIO [...] (test code = 2219) 23 U/L HEMOGLOBIN [id number] 00:00:00 Test Item Value Reference Range Interpretation Comments HEMOGLOBIN A1c (test code = 47099) 6.6 % HEMOGLOBIN [id number] 00:00:00 Test Item Value Reference Range Interpretation Comments HEMOGLOBIN A1c (test code = 72658) 6.6 % HEMOGLOBIN [id number] 00:00:00 Test Item Value Reference Range Interpretation Comments HEMOGLOBIN A1c (test code = 54504) 6.6 % LIPID [id number] 00:00:00 Test Item Value Reference Range Interpretation Comments CHOLESTEROL (test code = 2210) 261 MG/DL TRIGLYCERIDES (test code = 2232) 159 MG/DL HDL CHOLESTEROL (test code = 2220) 82 MG/DL CALC LDL CHOL (test code = 2237) 150 MG/DL RISK RATIO LDL/HDL (test code = 1.83 RATIO 2238) LIPID [id number] 00:00:00 Test Item Value Reference Range Interpretation Comments CHOLESTEROL (test code = 2210) 261 MG/DL TRIGLYCERIDES (test code = 2232) 159 MG/DL HDL CHOLESTEROL (test code = 2220) 82 MG/DL CALC LDL CHOL (test code = 2237) 150 MG/DL RISK RATIO LDL/HDL (test code = 1.83 RATIO 2238) COMPREHENSIVE METABOLIC [id number] 00:00:00 Test Item Value Reference Range Interpretation Comments GLUCOSE (test code = 2217) 144 MG/DL BUN (test code = 2208) 15 MG/DL CREATININE (test code = 2214) 0.85 MG/DL eGFR AMER. (test code 87 ML/MIN/1.73 = 11198) eGFR NON- AMER. (test 75 ML/MIN/1.73 code = 03859) CALC BUN/CREAT (test code = 18 RATIO [...] code = 2219) 50 U/L COMPREHENSIVE METABOLIC [id number] 00:00:00 Test Item Value Reference Range Interpretation Comments GLUCOSE (test code = 2217) 144 MG/DL BUN (test code = 2208) 15 MG/DL CREATININE (test code = 2214) 0.85 MG/DL eGFR AMER. (test code 87 ML/MIN/1.73 = 70659) eGFR NON- AMER. (test 75 ML/MIN/1.73 code = 73469) CALC BUN/CREAT (test code = 18 RATIO [...] THYROX. BIND. CAPAC. (test code 1.1 = 46849) T4 (THYROXINE) (test code = 4.3 UG/DL 281) CORRECTED T4 (FTI) (test code = 3.9 UG/DL 2820) TSH, THIRD GENERATION (test 18.900 UIU/ML code = 2821) THYROID II PROFILE (T3U, T4, T7, TSH)[id number] 00:00:00 Test Item Value Reference Range Interpretation Comments T-UPTAKE (test code = 2816) 30.2 % THYROX. BIND. CAPAC. (test code 1.1 = 37846) T4 (THYROXINE) (test code = 4.3 UG/DL 2819) CORRECTED T4 (FTI) (test code = 3.9 UG/DL 2820) TSH, THIRD GENERATION (test 18.900 UIU/ML code = 2821) HEMOGLOBIN [id number] 00:00:00 Test Item Value Reference Range Interpretation Comments HEMOGLOBIN A1c (test code = 48364) 6.6 % HEMOGLOBIN [id number] 00:00:00 Test Item Value Reference Range Interpretation Comments HEMOGLOBIN A1c (test code = 63486) 6.6 % HEMOGLOBIN [id number] 00:00:00 Test Item Value Reference Range Interpretation Comments HEMOGLOBIN A1c (test code = 63141) 6.6 % LIPID [id number] 00:00:00 Test Item Value Reference Range Interpretation Comments CHOLESTEROL (test code = 2210) 261 MG/DL TRIGLYCERIDES (test code = 2232) 159 MG/DL HDL CHOLESTEROL (test code = 2220) 82 MG/DL CALC LDL CHOL (test code = 2237) 150 MG/DL RISK RATIO LDL/HDL (test code = 1.83 RATIO 2238) LIPID [id number] 00:00:00 Test Item Value Reference Range Interpretation Comments CHOLESTEROL (test code = 2210) 261 MG/DL TRIGLYCERIDES (test code = 2232) 159 MG/DL HDL CHOLESTEROL (test code = 2220) 82 MG/DL CALC LDL CHOL (test code = 2237) 150 MG/DL RISK RATIO LDL/HDL (test code = 1.83 RATIO 2238) COMPREHENSIVE METABOLIC [id number] 00:00:00 Test Item Value Reference Range Interpretation Comments GLUCOSE (test code = 2217) 144 MG/DL BUN (test code = 2208) 15 MG/DL CREATININE (test code = 2214) 0.85 MG/DL eGFR AMER. (test code 87 ML/MIN/1.73 = 54678) eGFR NON- AMER. (test 75 ML/MIN/1.73 code = 79707) CALC BUN/CREAT (test code = 18 RATIO [...] code = 2219) 50 U/L COMPREHENSIVE METABOLIC [id number] 00:00:00 Test Item Value Reference Range Interpretation Comments GLUCOSE (test code = 2217) 144 MG/DL BUN (test code = 2208) 15 MG/DL CREATININE (test code = 2214) 0.85 MG/DL eGFR AMER. (test code 87 ML/MIN/1.73 = 55862) eGFR NON- AMER. (test 75 ML/MIN/1.73 code = 87356) CALC BUN/CREAT (test code = 18 RATIO [...] THYROX. BIND. CAPAC. (test code 1.1 = 88814) T4 (THYROXINE) (test code = 4.3 UG/DL 2819) CORRECTED T4 (FTI) (test code = 3.9 UG/DL 2820) TSH, THIRD GENERATION (test 18.900 UIU/ML code = 2821) THYROID II PROFILE (T3U, T4, T7, TSH)2020-05-23 00:00:00 Test Item Value Reference Range Interpretation Comments T-UPTAKE (test code = 2817) 30.2 % THYROX. BIND. CAPAC. (test code 1.1 = 25707) T4 (THYROXINE) (test code = 4.3 UG/DL 2819) CORRECTED T4 (FTI) (test code = 3.9 UG/DL 2820) TSH, THIRD GENERATION (test 18.900 UIU/ML code = 2821) HEMOGLOBIN [id number] 00:00:00 Test Item Value Reference Range Interpretation Comments HEMOGLOBIN A1c (test code = 77833) 6.6 % HEMOGLOBIN [id number] 00:00:00 Test Item Value Reference Range Interpretation Comments HEMOGLOBIN A1c (test code = 09984) 6.6 % LIPID [id number] 00:00:00 Test Item Value Reference Range Interpretation Comments CHOLESTEROL (test code = 2210) 261 MG/DL TRIGLYCERIDES (test code = 2232) 159 MG/DL HDL CHOLESTEROL (test code = 2220) 82 MG/DL CALC LDL CHOL (test code = 2237) 150 MG/DL RISK RATIO LDL/HDL (test code = 1.83 RATIO 2238) COMPREHENSIVE METABOLIC [id number] 00:00:00 Test Item Value Reference Range Interpretation Comments GLUCOSE (test code = 2217) 144 MG/DL BUN (test code = 2208) 15 MG/DL CREATININE (test code = 2214) 0.85 MG/DL eGFR AMER. (test code 87 ML/MIN/1.73 = 55910) eGFR NON- AMER. (test 75 ML/MIN/1.73 code = 94862) CALC BUN/CREAT (test code = 18 RATIO [...] THYROX. BIND. CAPAC. (test code 1.1 = 28426) T4 (THYROXINE) (test code = 4.3 UG/DL 281) CORRECTED T4 (FTI) (test code = 3.9 UG/DL 2820) TSH, THIRD GENERATION (test 18.900 UIU/ML code = 2821) HEMOGLOBIN [id number] 00:00:00 Test Item Value Reference Range Interpretation Comments HEMOGLOBIN A1c (test code = 67995) 6.6 % HEMOGLOBIN [id number] 00:00:00 Test Item Value Reference Range Interpretation Comments HEMOGLOBIN A1c (test code = 22844) 6.6 % HEMOGLOBIN [id number] 00:00:00 Test Item Value Reference Range Interpretation Comments HEMOGLOBIN A1c (test code = 07256) 6.6 % LIPID [id number] 00:00:00 Test Item Value Reference Range Interpretation Comments CHOLESTEROL (test code = 2210) 261 MG/DL TRIGLYCERIDES (test code = 2232) 159 MG/DL HDL CHOLESTEROL (test code = 2220) 82 MG/DL CALC LDL CHOL (test code = 2237) 150 MG/DL RISK RATIO LDL/HDL (test code = 1.83 RATIO 2238) LIPID [id number] 00:00:00 Test Item Value Reference Range Interpretation Comments CHOLESTEROL (test code = 2210) 261 MG/DL TRIGLYCERIDES (test code = 2232) 159 MG/DL HDL CHOLESTEROL (test code = 2220) 82 MG/DL CALC LDL CHOL (test code = 2237) 150 MG/DL RISK RATIO LDL/HDL (test code = 1.83 RATIO 2238) COMPREHENSIVE METABOLIC [id number] 00:00:00 Test Item Value Reference Range Interpretation Comments GLUCOSE (test code = 2217) 144 MG/DL BUN (test code = 2208) 15 MG/DL CREATININE (test code = 2214) 0.85 MG/DL eGFR AMER. (test code 87 ML/MIN/1.73 = 79614) eGFR NON- AMER. (test 75 ML/MIN/1.73 code = 88419) CALC BUN/CREAT (test code = 18 RATIO [...] code = 2219) 50 U/L COMPREHENSIVE METABOLIC [id number] 00:00:00 Test Item Value Reference Range Interpretation Comments GLUCOSE (test code = 2217) 144 MG/DL BUN (test code = 2208) 15 MG/DL CREATININE (test code = 2214) 0.85 MG/DL eGFR AMER. (test code 87 ML/MIN/1.73 = 25246) eGFR NON- AMER. (test 75 ML/MIN/1.73 code = 38747) CALC BUN/CREAT (test code = 18 RATIO [...] THYROX. BIND. CAPAC. (test code 1.1 = 28858) T4 (THYROXINE) (test code = 4.3 UG/DL 2819) CORRECTED T4 (FTI) (test code = 3.9 UG/DL 2820) TSH, THIRD GENERATION (test 18.900 UIU/ML code = 2821) THYROID II PROFILE (T3U, T4, T7, TSH)2020-05-23 00:00:00 Test Item Value Reference Range Interpretation Comments T-UPTAKE (test code = 2817) 30.2 % THYROX. BIND. CAPAC. (test code 1.1 = 04515) T4 (THYROXINE) (test code = 4.3 UG/DL 2819) CORRECTED T4 (FTI) (test code = 3.9 UG/DL 2820) TSH, THIRD GENERATION (test 18.900 UIU/ML code = 2821) HEMOGLOBIN [id number] 00:00:00 Test Item Value Reference Range Interpretation Comments HEMOGLOBIN A1c (test code = 95376) 6.7 % HEMOGLOBIN [id number] 00:00:00 Test Item Value Reference Range Interpretation Comments HEMOGLOBIN A1c (test code = 34424) 6.7 % HEMOGLOBIN [id number] 00:00:00 Test Item Value Reference Range Interpretation Comments HEMOGLOBIN A1c (test code = 76591) 6.7 % LIPID [id number] 00:00:00 Test Item Value Reference Range Interpretation Comments CHOLESTEROL (test code = 2210) 267 MG/DL TRIGLYCERIDES (test code = 2232) 137 MG/DL HDL CHOLESTEROL (test code = 2220) 48 MG/DL CALC LDL CHOL (test code = 2237) 192 MG/DL RISK RATIO LDL/HDL (test code = 4.00 RATIO 2238) LIPID [id number] 00:00:00 Test Item Value Reference Range Interpretation Comments CHOLESTEROL (test code = 2210) 267 MG/DL TRIGLYCERIDES (test code = 2232) 137 MG/DL HDL CHOLESTEROL (test code = 2220) 48 MG/DL CALC LDL CHOL (test code = 2237) 192 MG/DL RISK RATIO LDL/HDL (test code = 4.00 RATIO 2238) COMPREHENSIVE METABOLIC [id number] 00:00:00 Test Item Value Reference Range Interpretation Comments GLUCOSE (test code = 2217) 155 MG/DL BUN (test code = 2208) 14 MG/DL CREATININE (test code = 2214) 0.52 MG/DL eGFR AMER. (test code 122 ML/MIN/1.73 = 01280) eGFR NON- AMER. (test 105 ML/MIN/1.73 code = 82717) CALC BUN/CREAT (test code = 27 RATIO [...] code = 2219) 27 U/L COMPREHENSIVE METABOLIC [id number] 00:00:00 Test Item Value Reference Range Interpretation Comments GLUCOSE (test code = 2217) 155 MG/DL BUN (test code = 2208) 14 MG/DL CREATININE (test code = 2214) 0.52 MG/DL eGFR AMER. (test code 122 ML/MIN/1.73 = 31122) eGFR NON- AMER. (test 105 ML/MIN/1.73 code = 05486) CALC BUN/CREAT (test code = 27 RATIO [...] THYROX. BIND. CAPAC. (test code 1.0 = 91543) T4 (THYROXINE) (test code = 4.7 UG/DL 2819) CORRECTED T4 (FTI) (test code = 4.7 UG/DL 2820) TSH, THIRD GENERATION (test code 0.201 UIU/ML = 2821) THYROID II PROFILE (T3U, T4, T7, TSH)2019 00:00:00 Test Item Value Reference Range Interpretation Comments T-UPTAKE (test code = 2816) 33.1 % THYROX. BIND. CAPAC. (test code 1.0 = 28083) T4 (THYROXINE) (test code = 4.7 UG/DL 2819) CORRECTED T4 (FTI) (test code = 4.7 UG/DL 2820) TSH, THIRD GENERATION (test code 0.201 UIU/ML = 2821) HEMOGLOBIN [id number] 00:00:00 Test Item Value Reference Range Interpretation Comments HEMOGLOBIN A1c (test code = 62796) 6.7 % HEMOGLOBIN [id number] 00:00:00 Test Item Value Reference Range Interpretation Comments HEMOGLOBIN A1c (test code = 04650) 6.7 % HEMOGLOBIN [id number] 00:00:00 Test Item Value Reference Range Interpretation Comments HEMOGLOBIN A1c (test code = 37535) 6.7 % LIPID [id number] 00:00:00 Test Item Value Reference Range Interpretation Comments CHOLESTEROL (test code = 2210) 267 MG/DL TRIGLYCERIDES (test code = 2232) 137 MG/DL HDL CHOLESTEROL (test code = 2220) 48 MG/DL CALC LDL CHOL (test code = 2237) 192 MG/DL RISK RATIO LDL/HDL (test code = 4.00 RATIO 2238) LIPID [id number] 00:00:00 Test Item Value Reference Range Interpretation Comments CHOLESTEROL (test code = 2210) 267 MG/DL TRIGLYCERIDES (test code = 2232) 137 MG/DL HDL CHOLESTEROL (test code = 2220) 48 MG/DL CALC LDL CHOL (test code = 2237) 192 MG/DL RISK RATIO LDL/HDL (test code = 4.00 RATIO 2238) COMPREHENSIVE METABOLIC [id number] 00:00:00 Test Item Value Reference Range Interpretation Comments GLUCOSE (test code = 2217) 155 MG/DL BUN (test code = 2208) 14 MG/DL CREATININE (test code = 2214) 0.52 MG/DL eGFR AMER. (test code 122 ML/MIN/1.73 = 24794) eGFR NON- AMER. (test 105 ML/MIN/1.73 code = 36009) CALC BUN/CREAT (test code = 27 RATIO [...] code = 2219) 27 U/L COMPREHENSIVE METABOLIC [id number] 00:00:00 Test Item Value Reference Range Interpretation Comments GLUCOSE (test code = 2217) 155 MG/DL BUN (test code = 2208) 14 MG/DL CREATININE (test code = 2214) 0.52 MG/DL eGFR AMER. (test code 122 ML/MIN/1.73 = 42653) eGFR NON- AMER. (test 105 ML/MIN/1.73 code = 28991) CALC BUN/CREAT (test code = 27 RATIO [...] THYROX. BIND. CAPAC. (test code 1.0 = 46294) T4 (THYROXINE) (test code = 4.7 UG/DL 2819) CORRECTED T4 (FTI) (test code = 4.7 UG/DL 2820) TSH, THIRD GENERATION (test code 0.201 UIU/ML = 2821) THYROID II PROFILE (T3U, T4, T7, TSH)2019 00:00:00 Test Item Value Reference Range Interpretation Comments T-UPTAKE (test code = 2816) 33.1 % THYROX. BIND. CAPAC. (test code 1.0 = 62303) T4 (THYROXINE) (test code = 4.7 UG/DL 2819) CORRECTED T4 (FTI) (test code = 4.7 UG/DL 2820) TSH, THIRD GENERATION (test code 0.201 UIU/ML = 2821) HEMOGLOBIN [id number] 00:00:00 Test Item Value Reference Range Interpretation Comments HEMOGLOBIN A1c (test code = 25230) 6.7 % HEMOGLOBIN [id number] 00:00:00 Test Item Value Reference Range Interpretation Comments HEMOGLOBIN A1c (test code = 93502) 6.7 % LIPID [id number] 00:00:00 Test Item Value Reference Range Interpretation Comments CHOLESTEROL (test code = 2210) 267 MG/DL TRIGLYCERIDES (test code = 2232) 137 MG/DL HDL CHOLESTEROL (test code = 2220) 48 MG/DL CALC LDL CHOL (test code = 2237) 192 MG/DL RISK RATIO LDL/HDL (test code = 4.00 RATIO 2238) COMPREHENSIVE METABOLIC [id number] 00:00:00 Test Item Value Reference Range Interpretation Comments GLUCOSE (test code = 2217) 155 MG/DL BUN (test code = 2208) 14 MG/DL CREATININE (test code = 2214) 0.52 MG/DL eGFR AMER. (test code 122 ML/MIN/1.73 = 56076) eGFR NON- AMER. (test 105 ML/MIN/1.73 code = 54444) CALC BUN/CREAT (test code = 27 RATIO [...] THYROX. BIND. CAPAC. (test code 1.0 = 89607) T4 (THYROXINE) (test code = 4.7 UG/DL 2819) CORRECTED T4 (FTI) (test code = 4.7 UG/DL 2820) TSH, THIRD GENERATION (test code 0.201 UIU/ML = 2821) HEMOGLOBIN [id number] 00:00:00 Test Item Value Reference Range Interpretation Comments HEMOGLOBIN A1c (test code = 89848) 6.7 % HEMOGLOBIN [id number] 00:00:00 Test Item Value Reference Range Interpretation Comments HEMOGLOBIN A1c (test code = 59380) 6.7 % HEMOGLOBIN [id number] 00:00:00 Test Item Value Reference Range Interpretation Comments HEMOGLOBIN A1c (test code = 33082) 6.7 % LIPID [id number] 00:00:00 Test Item Value Reference Range Interpretation Comments CHOLESTEROL (test code = 2210) 267 MG/DL TRIGLYCERIDES (test code = 2232) 137 MG/DL HDL CHOLESTEROL (test code = 2220) 48 MG/DL CALC LDL CHOL (test code = 2237) 192 MG/DL RISK RATIO LDL/HDL (test code = 4.00 RATIO 2238) LIPID [id number] 00:00:00 Test Item Value Reference Range Interpretation Comments CHOLESTEROL (test code = 2210) 267 MG/DL TRIGLYCERIDES (test code = 2232) 137 MG/DL HDL CHOLESTEROL (test code = 2220) 48 MG/DL CALC LDL CHOL (test code = 2237) 192 MG/DL RISK RATIO LDL/HDL (test code = 4.00 RATIO 2238) COMPREHENSIVE METABOLIC [id number] 00:00:00 Test Item Value Reference Range Interpretation Comments GLUCOSE (test code = 2217) 155 MG/DL BUN (test code = 2208) 14 MG/DL CREATININE (test code = 2214) 0.52 MG/DL eGFR AMER. (test code 122 ML/MIN/1.73 = 41269) eGFR NON- AMER. (test 105 ML/MIN/1.73 code = 41714) CALC BUN/CREAT (test code = 27 RATIO [...] code = 2219) 27 U/L COMPREHENSIVE METABOLIC [id number] 00:00:00 Test Item Value Reference Range Interpretation Comments GLUCOSE (test code = 2217) 155 MG/DL BUN (test code = 2208) 14 MG/DL CREATININE (test code = 2214) 0.52 MG/DL eGFR AMER. (test code 122 ML/MIN/1.73 = 84369) eGFR NON- AMER. (test 105 ML/MIN/1.73 code = 15240) CALC BUN/CREAT (test code = 27 RATIO [...] THYROX. BIND. CAPAC. (test code 1.0 = 83758) T4 (THYROXINE) (test code = 4.7 UG/DL 2819) CORRECTED T4 (FTI) (test code = 4.7 UG/DL 2820) TSH, THIRD GENERATION (test code 0.201 UIU/ML = 2821) THYROID II PROFILE (T3U, T4, T7, TSH)2019 00:00:00 Test Item Value Reference Range Interpretation Comments T-UPTAKE (test code = 2817) 33.1 % THYROX. BIND. CAPAC. (test code 1.0 = 24651) T4 (THYROXINE) (test code = 4.7 UG/DL 2819) CORRECTED T4 (FTI) (test code = 4.7 UG/DL 2820) TSH, THIRD GENERATION (test code 0.201 UIU/ML = 2821) SARS-CoV-2 (COVID-19) by RT-PCR (HIGH RISK)2019-09-18 00:00:00 Test Item Value Reference Range Interpretation Comments SARS-CoV-2 INTERPRETATION (test NEGATIVE code = 99456) SOURCE (test code = 41028) NOT SPECIFIED SARS-CoV-2 (COVID-19) by RT-PCR (HIGH RISK)2019-09-18 00:00:00 Test Item Value Reference Range Interpretation Comments SARS-CoV-2 INTERPRETATION (test NEGATIVE code = 63764) SOURCE (test code = 60162) NOT SPECIFIED SARS-CoV-2 (COVID-19) by RT-PCR (HIGH RISK)2019-09-18 00:00:00 Test Item Value Reference Range Interpretation Comments SARS-CoV-2 INTERPRETATION (test NEGATIVE code = 26969) SOURCE (test code = 51971) NOT SPECIFIED SARS-CoV-2 (COVID-19) by RT-PCR (HIGH RISK)2019-09-18 00:00:00 Test Item Value Reference Range Interpretation Comments SARS-CoV-2 INTERPRETATION (test NEGATIVE code = 59199) SOURCE (test code = 06383) NOT SPECIFIED SARS-CoV-2 (COVID-19) by RT-PCR (HIGH RISK)2019-09-18 00:00:00 Test Item Value Reference Range Interpretation Comments SARS-CoV-2 INTERPRETATION (test NEGATIVE code = 20017) SOURCE (test code = 03756) NOT SPECIFIED SARS-CoV-2 (COVID-19) by RT-PCR (HIGH RISK)2019-09-18 00:00:00 Test Item Value Reference Range Interpretation Comments SARS-CoV-2 INTERPRETATION (test NEGATIVE code = 32162) SOURCE (test code = 20745) NOT SPECIFIED SARS-CoV-2 (COVID-19) by RT-PCR (HIGH RISK)2019-09-18 00:00:00 Test Item Value Reference Range Interpretation Comments SARS-CoV-2 INTERPRETATION (test NEGATIVE code = 18292) SOURCE (test code = 00497) NOT SPECIFIED [id number] 00:00:00 Test Item Value Reference Range Interpretation Comments TSH, THIRD GENERATION (test code 2.490 UIU/ML = 2821) [id number] 00:00:00 Test Item Value Reference Range Interpretation Comments TSH, THIRD GENERATION (test code 2.490 UIU/ML = 2821) [id number] 00:00:00 Test Item Value Reference Range Interpretation Comments TSH, THIRD GENERATION (test code 2.490 UIU/ML = 2821) HEMOGLOBIN [id number] 00:00:00 Test Item Value Reference Range Interpretation Comments HEMOGLOBIN A1c (test code = 57220) 6.4 % HEMOGLOBIN [id number] 00:00:00 Test Item Value Reference Range Interpretation Comments HEMOGLOBIN A1c (test code = 10261) 6.4 % HEMOGLOBIN [id number] 00:00:00 Test Item Value Reference Range Interpretation Comments HEMOGLOBIN A1c (test code = 08280) 6.4 % COMPREHENSIVE METABOLIC [id number] 00:00:00 Test Item Value Reference Range Interpretation Comments GLUCOSE (test code = 2217) 206 MG/DL BUN (test code = 2208) 23 MG/DL CREATININE (test code = 2214) 0.67 MG/DL eGFR AMER. (test code 112 ML/MIN/1.73 = 08208) eGFR NON- AMER. (test 97 ML/MIN/1.73 code = 86879) CALC BUN/CREAT (test code = 34 RATIO [...] code = 2219) 25 U/L COMPREHENSIVE METABOLIC [id number] 00:00:00 Test Item Value Reference Range Interpretation Comments GLUCOSE (test code = 2217) 206 MG/DL BUN (test code = 2208) 23 MG/DL CREATININE (test code = 2214) 0.67 MG/DL eGFR AMER. (test code 112 ML/MIN/1.73 = 35217) eGFR NON- AMER. (test 97 ML/MIN/1.73 code = 88024) CALC BUN/CREAT (test code = 34 RATIO [...] ALT (test code = 2219) 25 U/L [id number] 00:00:00 Test Item Value Reference Range Interpretation Comments TSH, THIRD GENERATION (test code 2.490 UIU/ML = 2821) [id number] 00:00:00 Test Item Value Reference Range Interpretation Comments TSH, THIRD GENERATION (test code 2.490 UIU/ML = 2821) [id number] 00:00:00 Test Item Value Reference Range Interpretation Comments TSH, THIRD GENERATION (test code 2.490 UIU/ML = 2821) HEMOGLOBIN [id number] 00:00:00 Test Item Value Reference Range Interpretation Comments HEMOGLOBIN A1c (test code = 47330) 6.4 % HEMOGLOBIN [id number] 00:00:00 Test Item Value Reference Range Interpretation Comments HEMOGLOBIN A1c (test code = 41699) 6.4 % HEMOGLOBIN [id number] 00:00:00 Test Item Value Reference Range Interpretation Comments HEMOGLOBIN A1c (test code = 57366) 6.4 % COMPREHENSIVE METABOLIC [id number] 00:00:00 Test Item Value Reference Range Interpretation Comments GLUCOSE (test code = 2217) 206 MG/DL BUN (test code = 2208) 23 MG/DL CREATININE (test code = 2214) 0.67 MG/DL eGFR AMER. (test code 112 ML/MIN/1.73 = 31831) eGFR NON- AMER. (test 97 ML/MIN/1.73 code = 87283) CALC BUN/CREAT (test code = 34 RATIO [...] code = 2219) 25 U/L COMPREHENSIVE METABOLIC [id number] 00:00:00 Test Item Value Reference Range Interpretation Comments GLUCOSE (test code = 2217) 206 MG/DL BUN (test code = 2208) 23 MG/DL CREATININE (test code = 2214) 0.67 MG/DL eGFR AMER. (test code 112 ML/MIN/1.73 = 51006) eGFR NON- AMER. (test 97 ML/MIN/1.73 code = 73284) CALC BUN/CREAT (test code = 34 RATIO [...] ALT (test code = 2219) 25 U/L [id number] 00:00:00 Test Item Value Reference Range Interpretation Comments TSH, THIRD GENERATION (test code 2.490 UIU/ML = 2821) [id number] 00:00:00 Test Item Value Reference Range Interpretation Comments TSH, THIRD GENERATION (test code 2.490 UIU/ML = 2821) HEMOGLOBIN [id number] 00:00:00 Test Item Value Reference Range Interpretation Comments HEMOGLOBIN A1c (test code = 32760) 6.4 % HEMOGLOBIN [id number] 00:00:00 Test Item Value Reference Range Interpretation Comments HEMOGLOBIN A1c (test code = 26693) 6.4 % COMPREHENSIVE METABOLIC [id number] 00:00:00 Test Item Value Reference Range Interpretation Comments GLUCOSE (test code = 2217) 206 MG/DL BUN (test code = 2208) 23 MG/DL CREATININE (test code = 2214) 0.67 MG/DL eGFR AMER. (test code 112 ML/MIN/1.73 = 13889) eGFR NON- AMER. (test 97 ML/MIN/1.73 code = 46798) CALC BUN/CREAT (test code = 34 RATIO [...] ALT (test code = 2219) 25 U/L [id number] 00:00:00 Test Item Value Reference Range Interpretation Comments TSH, THIRD GENERATION (test code 2.490 UIU/ML = 2821) [id number] 00:00:00 Test Item Value Reference Range Interpretation Comments TSH, THIRD GENERATION (test code 2.490 UIU/ML = 2821) [id number] 00:00:00 Test Item Value Reference Range Interpretation Comments TSH, THIRD GENERATION (test code 2.490 UIU/ML = 2821) HEMOGLOBIN [id number] 00:00:00 Test Item Value Reference Range Interpretation Comments HEMOGLOBIN A1c (test code = 80866) 6.4 % HEMOGLOBIN [id number] 00:00:00 Test Item Value Reference Range Interpretation Comments HEMOGLOBIN A1c (test code = 91425) 6.4 % HEMOGLOBIN [id number] 00:00:00 Test Item Value Reference Range Interpretation Comments HEMOGLOBIN A1c (test code = 51502) 6.4 % COMPREHENSIVE METABOLIC [id number] 00:00:00 Test Item Value Reference Range Interpretation Comments GLUCOSE (test code = 2217) 206 MG/DL BUN (test code = 2208) 23 MG/DL CREATININE (test code = 2214) 0.67 MG/DL eGFR AMER. (test code 112 ML/MIN/1.73 = 60984) eGFR NON- AMER. (test 97 ML/MIN/1.73 code = 60183) CALC BUN/CREAT (test code = 34 RATIO [...] code = 2219) 25 U/L COMPREHENSIVE METABOLIC [id number] 00:00:00 Test Item Value Reference Range Interpretation Comments GLUCOSE (test code = 2217) 206 MG/DL BUN (test code = 2208) 23 MG/DL CREATININE (test code = 2214) 0.67 MG/DL eGFR AMER. (test code 112 ML/MIN/1.73 = 81749) eGFR NON- AMER. (test 97 ML/MIN/1.73 code = 73096) CALC BUN/CREAT (test code = 34 RATIO [...] = 2219) 25 U/L VAGINAL PATHOGENS DNA [id number] 00:00:00 Test Item Value Reference Range Interpretation Comments MARK SPECIES (test code = ) NEGATIVE G. VAGINALIS (test code = ) NEGATIVE T. VAGINALIS (test code = ) NEGATIVE VAGINAL PATHOGENS DNA [id number] 00:00:00 Test Item Value Reference Range Interpretation Comments MARK SPECIES (test code = 51264) NEGATIVE G. VAGINALIS (test code = 00685) NEGATIVE T. VAGINALIS (test code = 39148) NEGATIVE VAGINAL PATHOGENS DNA [id number] 00:00:00 Test Item Value Reference Range Interpretation Comments MARK SPECIES (test code = 77777) NEGATIVE G. VAGINALIS (test code = 83306) NEGATIVE T. VAGINALIS (test code = 41267) NEGATIVE VAGINAL PATHOGENS DNA [id number] 00:00:00 Test Item Value Reference Range Interpretation Comments MARK SPECIES (test code = 95191) NEGATIVE G. VAGINALIS (test code = 26407) NEGATIVE T. VAGINALIS (test code = 57172) NEGATIVE VAGINAL PATHOGENS DNA [id number] 00:00:00 Test Item Value Reference Range Interpretation Comments MARK SPECIES (test code = 36063) NEGATIVE G. VAGINALIS (test code = 55256) NEGATIVE T. VAGINALIS (test code = 16806) NEGATIVE VAGINAL PATHOGENS DNA [id number] 00:00:00 Test Item Value Reference Range Interpretation Comments MARK SPECIES (test code = 46150) NEGATIVE G. VAGINALIS (test code = 83264) NEGATIVE T. VAGINALIS (test code = 32329) NEGATIVE VAGINAL PATHOGENS DNA [id number] 00:00:00 Test Item Value Reference Range Interpretation Comments MARK SPECIES (test code = 41195) NEGATIVE G. VAGINALIS (test code = 76520) NEGATIVE T. VAGINALIS (test code = 05810) NEGATIVE HEMOGLOBIN A1c [ADDED]2018-12-01 00:00:00 Test Item Value Reference Range Interpretation Comments HEMOGLOBIN A1c (test code = 15120) 6.7 % HEMOGLOBIN A1c [ADDED]2018-12-01 00:00:00 Test Item Value Reference Range Interpretation Comments HEMOGLOBIN A1c (test code = 92142) 6.7 % HEMOGLOBIN A1c [ADDED]2018-12-01 00:00:00 Test Item Value Reference Range Interpretation Comments HEMOGLOBIN A1c (test code = 91247) 6.7 % COMPREHENSIVE METABOLIC PANEL [ADDED]2018-12-01 00:00:00 Test Item Value Reference Range Interpretation Comments GLUCOSE (test code = 2217) 136 MG/DL BUN (test code = 2208) 15 MG/DL CREATININE (test code = 2214) 0.64 MG/DL eGFR AMER. (test code 115 ML/MIN/1.73 = 16531) eGFR NON- AMER. (test 99 ML/MIN/1.73 code = 06673) CALC BUN/CREAT (test code = 23 RATIO [...] eGFR AMER. (test code 115 ML/MIN/1.73 = 62482) eGFR NON- AMER. (test 99 ML/MIN/1.73 code = 45658) CALC BUN/CREAT (test code = 23 RATIO [...] Interpretation Comments HEMOGLOBIN A1c (test code = 00407) 6.7 % HEMOGLOBIN A1c [ADDED]2018-12-01 00:00:00 Test Item Value Reference Range Interpretation Comments HEMOGLOBIN A1c (test code = 03156) 6.7 % HEMOGLOBIN A1c [ADDED]2018-12-01 00:00:00 Test Item Value Reference Range Interpretation Comments HEMOGLOBIN A1c (test code = 96897) 6.7 % COMPREHENSIVE METABOLIC PANEL [ADDED]2018-12-01 00:00:00 Test Item Value Reference Range Interpretation Comments GLUCOSE (test code = 2217) 136 MG/DL BUN (test code = 2208) 15 MG/DL CREATININE (test code = 2214) 0.64 MG/DL eGFR AMER. (test code 115 ML/MIN/1.73 = 60218) eGFR NON- AMER. (test 99 ML/MIN/1.73 code = 22816) CALC BUN/CREAT (test code = 23 RATIO [...] eGFR AMER. (test code 115 ML/MIN/1.73 = 77522) eGFR NON- AMER. (test 99 ML/MIN/1.73 code = 10848) CALC BUN/CREAT (test code = 23 RATIO [...] Interpretation Comments HEMOGLOBIN A1c (test code = 39953) 6.7 % HEMOGLOBIN A1c [ADDED]2018-12-01 00:00:00 Test Item Value Reference Range Interpretation Comments HEMOGLOBIN A1c (test code = 74077) 6.7 % COMPREHENSIVE METABOLIC PANEL [ADDED]2018-12-01 00:00:00 Test Item Value Reference Range Interpretation Comments GLUCOSE (test code = 2217) 136 MG/DL BUN (test code = 2208) 15 MG/DL CREATININE (test code = 2214) 0.64 MG/DL eGFR AMER. (test code 115 ML/MIN/1.73 = 67923) eGFR NON- AMER. (test 99 ML/MIN/1.73 code = 48633) CALC BUN/CREAT (test code = 23 RATIO [...] Interpretation Comments HEMOGLOBIN A1c (test code = 54566) 6.7 % HEMOGLOBIN A1c [ADDED]2018-12-01 00:00:00 Test Item Value Reference Range Interpretation Comments HEMOGLOBIN A1c (test code = 99806) 6.7 % HEMOGLOBIN A1c [ADDED]2018-12-01 00:00:00 Test Item Value Reference Range Interpretation Comments HEMOGLOBIN A1c (test code = 39175) 6.7 % COMPREHENSIVE METABOLIC PANEL [ADDED]2018-12-01 00:00:00 Test Item Value Reference Range Interpretation Comments GLUCOSE (test code = 2217) 136 MG/DL BUN (test code = 2208) 15 MG/DL CREATININE (test code = 2214) 0.64 MG/DL eGFR AMER. (test code 115 ML/MIN/1.73 = 26863) eGFR NON- AMER. (test 99 ML/MIN/1.73 code = 96983) CALC BUN/CREAT (test code = 23 RATIO [...] eGFR AMER. (test code 115 ML/MIN/1.73 = 74939) eGFR NON- AMER. (test 99 ML/MIN/1.73 code = 97507) CALC BUN/CREAT (test code = 23 RATIO [...] code 1.280 UIU/ML = 2821) CBC W/AUTO [id number] 00:00:00 Test Item Value Reference Range Interpretation [...] code = 1015) 346 K/UL CBC W/AUTO [id number] 00:00:00 Test Item Value Reference Range Interpretation [...] code = 1015) 346 K/UL CBC W/AUTO [id number] 00:00:00 Test Item Value Reference Range Interpretation [...] (test code = 1015) 346 K/UL HEMOGLOBIN [id number] 00:00:00 Test Item Value Reference Range Interpretation Comments HEMOGLOBIN A1c (test code = 64332) 5.9 % HEMOGLOBIN [id number] 00:00:00 Test Item Value Reference Range Interpretation Comments HEMOGLOBIN A1c (test code = 87393) 5.9 % HEMOGLOBIN [id number] 00:00:00 Test Item Value Reference Range Interpretation Comments HEMOGLOBIN A1c (test code = 60996) 5.9 % LIPID [id number] 00:00:00 Test Item Value Reference Range Interpretation Comments CHOLESTEROL (test code = 2210) 318 MG/DL TRIGLYCERIDES (test code = 2232) 263 MG/DL HDL CHOLESTEROL (test code = 2220) 51 MG/DL CALC LDL CHOL (test code = 2237) 214 MG/DL RISK RATIO LDL/HDL (test code = 4.20 RATIO 2238) LIPID [id number] 00:00:00 Test Item Value Reference Range Interpretation Comments CHOLESTEROL (test code = 2210) 318 MG/DL TRIGLYCERIDES (test code = 2232) 263 MG/DL HDL CHOLESTEROL (test code = 2220) 51 MG/DL CALC LDL CHOL (test code = 2237) 214 MG/DL RISK RATIO LDL/HDL (test code = 4.20 RATIO 2238) COMPREHENSIVE METABOLIC [id number] 00:00:00 Test Item Value Reference Range Interpretation Comments GLUCOSE (test code = 2217) 113 MG/DL BUN (test code = 2208) 18 MG/DL CREATININE (test code = 2214) 0.70 MG/DL eGFR AMER. (test code 111 ML/MIN/1.73 = 83568) eGFR NON- AMER. (test 96 ML/MIN/1.73 code = 52310) CALC BUN/CREAT (test code = 26 RATIO [...] code = 2219) 31 U/L COMPREHENSIVE METABOLIC [id number] 00:00:00 Test Item Value Reference Range Interpretation Comments GLUCOSE (test code = 2217) 113 MG/DL BUN (test code = 2208) 18 MG/DL CREATININE (test code = 2214) 0.70 MG/DL eGFR AMER. (test code 111 ML/MIN/1.73 = 47079) eGFR NON- AMER. (test 96 ML/MIN/1.73 code = 51868) CALC BUN/CREAT (test code = 26 RATIO [...] ALT (test code = 2219) 31 U/L [id number] 00:00:00 Test Item Value Reference Range Interpretation Comments TSH, THIRD GENERATION (test code 2.520 UIU/ML = 2821) [id number] 00:00:00 Test Item Value Reference Range Interpretation Comments TSH, THIRD GENERATION (test code 2.520 UIU/ML = 2821) [id number] 00:00:00 Test Item Value Reference Range Interpretation Comments TSH, THIRD GENERATION (test code 2.520 UIU/ML = 2821) CBC W/AUTO [id number] 00:00:00 Test Item Value Reference Range Interpretation [...] code = 1015) 346 K/UL CBC W/AUTO [id number] 00:00:00 Test Item Value Reference Range Interpretation [...] code = 1015) 346 K/UL CBC W/AUTO [id number] 00:00:00 Test Item Value Reference Range Interpretation [...] (test code = 1015) 346 K/UL HEMOGLOBIN [id number] 00:00:00 Test Item Value Reference Range Interpretation Comments HEMOGLOBIN A1c (test code = 50793) 5.9 % HEMOGLOBIN [id number] 00:00:00 Test Item Value Reference Range Interpretation Comments HEMOGLOBIN A1c (test code = 21443) 5.9 % HEMOGLOBIN [id number] 00:00:00 Test Item Value Reference Range Interpretation Comments HEMOGLOBIN A1c (test code = 52385) 5.9 % LIPID [id number] 00:00:00 Test Item Value Reference Range Interpretation Comments CHOLESTEROL (test code = 2210) 318 MG/DL TRIGLYCERIDES (test code = 2232) 263 MG/DL HDL CHOLESTEROL (test code = 2220) 51 MG/DL CALC LDL CHOL (test code = 2237) 214 MG/DL RISK RATIO LDL/HDL (test code = 4.20 RATIO 2238) LIPID [id number] 00:00:00 Test Item Value Reference Range Interpretation Comments CHOLESTEROL (test code = 2210) 318 MG/DL TRIGLYCERIDES (test code = 2232) 263 MG/DL HDL CHOLESTEROL (test code = 2220) 51 MG/DL CALC LDL CHOL (test code = 2237) 214 MG/DL RISK RATIO LDL/HDL (test code = 4.20 RATIO 2238) COMPREHENSIVE METABOLIC [id number] 00:00:00 Test Item Value Reference Range Interpretation Comments GLUCOSE (test code = 2217) 113 MG/DL BUN (test code = 2208) 18 MG/DL CREATININE (test code = 2214) 0.70 MG/DL eGFR AMER. (test code 111 ML/MIN/1.73 = 85603) eGFR NON- AMER. (test 96 ML/MIN/1.73 code = 39012) CALC BUN/CREAT (test code = 26 RATIO [...] code = 2219) 31 U/L COMPREHENSIVE METABOLIC [id number] 00:00:00 Test Item Value Reference Range Interpretation Comments GLUCOSE (test code = 2217) 113 MG/DL BUN (test code = 2208) 18 MG/DL CREATININE (test code = 2214) 0.70 MG/DL eGFR AMER. (test code 111 ML/MIN/1.73 = 15671) eGFR NON- AMER. (test 96 ML/MIN/1.73 code = 48072) CALC BUN/CREAT (test code = 26 RATIO [...] ALT (test code = 2219) 31 U/L [id number] 00:00:00 Test Item Value Reference Range Interpretation Comments TSH, THIRD GENERATION (test code 2.520 UIU/ML = 2821) [id number] 00:00:00 Test Item Value Reference Range Interpretation Comments TSH, THIRD GENERATION (test code 2.520 UIU/ML = 2821) [id number] 00:00:00 Test Item Value Reference Range Interpretation Comments TSH, THIRD GENERATION (test code 2.520 UIU/ML = 2821) CBC W/AUTO [id number] 00:00:00 Test Item Value Reference Range Interpretation [...] code = 1015) 346 K/UL CBC W/AUTO [id number] 00:00:00 Test Item Value Reference Range Interpretation [...] (test code = 1015) 346 K/UL HEMOGLOBIN [id number] 00:00:00 Test Item Value Reference Range Interpretation Comments HEMOGLOBIN A1c (test code = 93023) 5.9 % HEMOGLOBIN [id number] 00:00:00 Test Item Value Reference Range Interpretation Comments HEMOGLOBIN A1c (test code = 01611) 5.9 % LIPID [id number] 00:00:00 Test Item Value Reference Range Interpretation Comments CHOLESTEROL (test code = 2210) 318 MG/DL TRIGLYCERIDES (test code = 2232) 263 MG/DL HDL CHOLESTEROL (test code = 2220) 51 MG/DL CALC LDL CHOL (test code = 2237) 214 MG/DL RISK RATIO LDL/HDL (test code = 4.20 RATIO 2238) COMPREHENSIVE METABOLIC [id number] 00:00:00 Test Item Value Reference Range Interpretation Comments GLUCOSE (test code = 2217) 113 MG/DL BUN (test code = 2208) 18 MG/DL CREATININE (test code = 2214) 0.70 MG/DL eGFR AMER. (test code 111 ML/MIN/1.73 = 51801) eGFR NON- AMER. (test 96 ML/MIN/1.73 code = 34715) CALC BUN/CREAT (test code = 26 RATIO [...] ALT (test code = 2219) 31 U/L [id number] 00:00:00 Test Item Value Reference Range Interpretation Comments TSH, THIRD GENERATION (test code 2.520 UIU/ML = 2821) [id number] 00:00:00 Test Item Value Reference Range Interpretation Comments TSH, THIRD GENERATION (test code 2.520 UIU/ML = 2821) CBC W/AUTO [id number] 00:00:00 Test Item Value Reference Range Interpretation [...] code = 1015) 346 K/UL CBC W/AUTO [id number] 00:00:00 Test Item Value Reference Range Interpretation [...] code = 1015) 346 K/UL CBC W/AUTO [id number] 00:00:00 Test Item Value Reference Range Interpretation [...] (test code = 1015) 346 K/UL HEMOGLOBIN [id number] 00:00:00 Test Item Value Reference Range Interpretation Comments HEMOGLOBIN A1c (test code = 61085) 5.9 % HEMOGLOBIN [id number] 00:00:00 Test Item Value Reference Range Interpretation Comments HEMOGLOBIN A1c (test code = 67197) 5.9 % HEMOGLOBIN [id number] 00:00:00 Test Item Value Reference Range Interpretation Comments HEMOGLOBIN A1c (test code = 11609) 5.9 % LIPID [id number] 00:00:00 Test Item Value Reference Range Interpretation Comments CHOLESTEROL (test code = 2210) 318 MG/DL TRIGLYCERIDES (test code = 2232) 263 MG/DL HDL CHOLESTEROL (test code = 2220) 51 MG/DL CALC LDL CHOL (test code = 2237) 214 MG/DL RISK RATIO LDL/HDL (test code = 4.20 RATIO 2238) LIPID [id number] 00:00:00 Test Item Value Reference Range Interpretation Comments CHOLESTEROL (test code = 2210) 318 MG/DL TRIGLYCERIDES (test code = 2232) 263 MG/DL HDL CHOLESTEROL (test code = 2220) 51 MG/DL CALC LDL CHOL (test code = 2237) 214 MG/DL RISK RATIO LDL/HDL (test code = 4.20 RATIO 2238) COMPREHENSIVE METABOLIC [id number] 00:00:00 Test Item Value Reference Range Interpretation Comments GLUCOSE (test code = 2217) 113 MG/DL BUN (test code = 2208) 18 MG/DL CREATININE (test code = 2214) 0.70 MG/DL eGFR AMER. (test code 111 ML/MIN/1.73 = 28072) eGFR NON- AMER. (test 96 ML/MIN/1.73 code = 92711) CALC BUN/CREAT (test code = 26 RATIO [...] code = 2219) 31 U/L COMPREHENSIVE METABOLIC [id number] 00:00:00 Test Item Value Reference Range Interpretation Comments GLUCOSE (test code = 2217) 113 MG/DL BUN (test code = 2208) 18 MG/DL CREATININE (test code = 2214) 0.70 MG/DL eGFR AMER. (test code 111 ML/MIN/1.73 = 92174) eGFR NON- AMER. (test 96 ML/MIN/1.73 code = 49360) CALC BUN/CREAT (test code = 26 RATIO [...] ALT (test code = 2219) 31 U/L [id number] 00:00:00 Test Item Value Reference Range Interpretation Comments TSH, THIRD GENERATION (test code 2.520 UIU/ML = 2821) [id number] 00:00:00 Test Item Value Reference Range Interpretation Comments TSH, THIRD GENERATION (test code 2.520 UIU/ML = 2821) [id number] 00:00:00 Test Item Value Reference Range Interpretation Comments TSH, THIRD GENERATION (test code 2.520 UIU/ML = 2821) CULTURE, [id number] 00:00:00 Test Item Value Reference Range Interpretation Comments CULTURE, URINE (test SPECIMEN NUMBER: code = 44182) [id number] CULTURE, [id number] 00:00:00 Test Item Value Reference Range Interpretation Comments CULTURE, URINE (test SPECIMEN NUMBER: code = 95369) [id number] CULTURE, [id number] 00:00:00 Test Item Value Reference Range Interpretation Comments CULTURE, URINE (test SPECIMEN NUMBER: code = 50690) [id number] CULTURE, [id number] 00:00:00 Test Item Value Reference Range Interpretation Comments CULTURE, URINE (test SPECIMEN NUMBER: code = 26955) [id number] CULTURE, [id number] 00:00:00 Test Item Value Reference Range Interpretation Comments CULTURE, URINE (test SPECIMEN NUMBER: code = 32816) [id number] CULTURE, [id number] 00:00:00 Test Item Value Reference Range Interpretation Comments CULTURE, URINE (test SPECIMEN NUMBER: code = 51926) [id number] CULTURE, [id number] 00:00:00 Test Item Value Reference Range Interpretation Comments CULTURE, URINE (test SPECIMEN NUMBER: code = 90802) [id number] CULTURE, [id number] 00:00:00 Test Item Value Reference Range Interpretation Comments CULTURE, URINE (test SPECIMEN NUMBER: code = 30317) [id number] CULTURE, [id number] 00:00:00 Test Item Value Reference Range Interpretation Comments CULTURE, URINE (test SPECIMEN NUMBER: code = 49620) [id number] CULTURE, [id number] 00:00:00 Test Item Value Reference Range Interpretation Comments CULTURE, URINE (test SPECIMEN NUMBER: code = 40702) [id number] CULTURE, [id number] 00:00:00 Test Item Value Reference Range Interpretation Comments CULTURE, URINE (test SPECIMEN NUMBER: code = 16132) [id number] CULTURE, [id number] 00:00:00 Test Item Value Reference Range Interpretation Comments CULTURE, URINE (test SPECIMEN NUMBER: code = 05227) [id number] CULTURE, [id number] 00:00:00 Test Item Value Reference Range Interpretation Comments CULTURE, URINE (test SPECIMEN NUMBER: code = 12608) [id number] CULTURE, [id number] 00:00:00 Test Item Value Reference Range Interpretation Comments CULTURE, URINE (test SPECIMEN NUMBER: code = 61738) [id number] BASIC METABOLIC [id number] 00:00:00 Test Item Value Reference Range Interpretation Comments GLUCOSE (test code = 2217) 135 MG/DL BUN (test code = 2208) 25 MG/DL CREATININE (test code = 2214) 0.76 MG/DL eGFR AMER. (test code 101 ML/MIN/1.73 = 43335) eGFR NON- AMER. (test 87 ML/MIN/1.73 code = 70173) SODIUM (test code = 2231) 139 MEQ/L POTASSIUM (test code = 2228) 4.7 MEQ/L CHLORIDE (test code = 2215) 99 MEQ/L CARBON DIOXIDE (test code = 26 MEQ/L 2206) CALCIUM (test code = 2209) 9.4 MG/DL BASIC METABOLIC [id number] 00:00:00 Test Item Value Reference Range Interpretation Comments GLUCOSE (test code = 2217) 135 MG/DL BUN (test code = 2208) 25 MG/DL CREATININE (test code = 2214) 0.76 MG/DL eGFR AMER. (test code 101 ML/MIN/1.73 = 66937) eGFR NON- AMER. (test 87 ML/MIN/1.73 code = 31576) SODIUM (test code = 2231) 139 MEQ/L POTASSIUM (test code = 2228) 4.7 MEQ/L CHLORIDE (test code = 2215) 99 MEQ/L CARBON DIOXIDE (test code = 26 MEQ/L 2206) CALCIUM (test code = 2209) 9.4 MG/DL LIPID [id number] 00:00:00 Test Item Value Reference Range Interpretation Comments CHOLESTEROL (test code = 2210) 262 MG/DL TRIGLYCERIDES (test code = 2232) 300 MG/DL HDL CHOLESTEROL (test code = 2220) 36 MG/DL CALC LDL CHOL (test code = 2237) 166 MG/DL RISK RATIO LDL/HDL (test code = 4.61 RATIO 2238) LIPID [id number] 00:00:00 Test Item Value Reference Range Interpretation Comments CHOLESTEROL (test code = 2210) 262 MG/DL TRIGLYCERIDES (test code = 2232) 300 MG/DL HDL CHOLESTEROL (test code = 2220) 36 MG/DL CALC LDL CHOL (test code = 2237) 166 MG/DL RISK RATIO LDL/HDL (test code = 4.61 RATIO 2238) HEMOGLOBIN [id number] 00:00:00 Test Item Value Reference Range Interpretation Comments HEMOGLOBIN A1c (test code = 05699) 6.2 % HEMOGLOBIN [id number] 00:00:00 Test Item Value Reference Range Interpretation Comments HEMOGLOBIN A1c (test code = 60559) 6.2 % HEMOGLOBIN [id number] 00:00:00 Test Item Value Reference Range Interpretation Comments HEMOGLOBIN A1c (test code = 82443) 6.2 % [id number] 00:00:00 Test Item Value Reference Range Interpretation Comments TSH, THIRD GENERATION (test code 0.988 UIU/ML = 2821) [id number] 00:00:00 Test Item Value Reference Range Interpretation Comments TSH, THIRD GENERATION (test code 0.988 UIU/ML = 2821) [id number] 00:00:00 Test Item Value Reference Range Interpretation Comments TSH, THIRD GENERATION (test code 0.988 UIU/ML = 2821) BASIC METABOLIC [id number] 00:00:00 Test Item Value Reference Range Interpretation Comments GLUCOSE (test code = 2217) 135 MG/DL BUN (test code = 2208) 25 MG/DL CREATININE (test code = 2214) 0.76 MG/DL eGFR AMER. (test code 101 ML/MIN/1.73 = 87059) eGFR NON- AMER. (test 87 ML/MIN/1.73 code = 73789) SODIUM (test code = 2231) 139 MEQ/L POTASSIUM (test code = 2228) 4.7 MEQ/L CHLORIDE (test code = 2215) 99 MEQ/L CARBON DIOXIDE (test code = 26 MEQ/L 2206) CALCIUM (test code = 2209) 9.4 MG/DL BASIC METABOLIC [id number] 00:00:00 Test Item Value Reference Range Interpretation Comments GLUCOSE (test code = 2217) 135 MG/DL BUN (test code = 2208) 25 MG/DL CREATININE (test code = 2214) 0.76 MG/DL eGFR AMER. (test code 101 ML/MIN/1.73 = 08879) eGFR NON- AMER. (test 87 ML/MIN/1.73 code = 33403) SODIUM (test code = 2231) 139 MEQ/L POTASSIUM (test code = 2228) 4.7 MEQ/L CHLORIDE (test code = 2215) 99 MEQ/L CARBON DIOXIDE (test code = 26 MEQ/L 2206) CALCIUM (test code = 2209) 9.4 MG/DL LIPID [id number] 00:00:00 Test Item Value Reference Range Interpretation Comments CHOLESTEROL (test code = 2210) 262 MG/DL TRIGLYCERIDES (test code = 2232) 300 MG/DL HDL CHOLESTEROL (test code = 2220) 36 MG/DL CALC LDL CHOL (test code = 2237) 166 MG/DL RISK RATIO LDL/HDL (test code = 4.61 RATIO 2238) LIPID [id number] 00:00:00 Test Item Value Reference Range Interpretation Comments CHOLESTEROL (test code = 2210) 262 MG/DL TRIGLYCERIDES (test code = 2232) 300 MG/DL HDL CHOLESTEROL (test code = 2220) 36 MG/DL CALC LDL CHOL (test code = 2237) 166 MG/DL RISK RATIO LDL/HDL (test code = 4.61 RATIO 2238) HEMOGLOBIN [id number] 00:00:00 Test Item Value Reference Range Interpretation Comments HEMOGLOBIN A1c (test code = 83568) 6.2 % HEMOGLOBIN [id number] 00:00:00 Test Item Value Reference Range Interpretation Comments HEMOGLOBIN A1c (test code = 72154) 6.2 % HEMOGLOBIN [id number] 00:00:00 Test Item Value Reference Range Interpretation Comments HEMOGLOBIN A1c (test code = 50852) 6.2 % [id number] 00:00:00 Test Item Value Reference Range Interpretation Comments TSH, THIRD GENERATION (test code 0.988 UIU/ML = 2821) [id number] 00:00:00 Test Item Value Reference Range Interpretation Comments TSH, THIRD GENERATION (test code 0.988 UIU/ML = 2821) [id number] 00:00:00 Test Item Value Reference Range Interpretation Comments TSH, THIRD GENERATION (test code 0.988 UIU/ML = 2821) BASIC METABOLIC [id number] 00:00:00 Test Item Value Reference Range Interpretation Comments GLUCOSE (test code = 2217) 135 MG/DL BUN (test code = 2208) 25 MG/DL CREATININE (test code = 2214) 0.76 MG/DL eGFR AMER. (test code 101 ML/MIN/1.73 = 00597) eGFR NON- AMER. (test 87 ML/MIN/1.73 code = 46154) SODIUM (test code = 2231) 139 MEQ/L POTASSIUM (test code = 2228) 4.7 MEQ/L CHLORIDE (test code = 2215) 99 MEQ/L CARBON DIOXIDE (test code = 26 MEQ/L 2206) CALCIUM (test code = 2209) 9.4 MG/DL LIPID [id number] 00:00:00 Test Item Value Reference Range Interpretation Comments CHOLESTEROL (test code = 2210) 262 MG/DL TRIGLYCERIDES (test code = 2232) 300 MG/DL HDL CHOLESTEROL (test code = 2220) 36 MG/DL CALC LDL CHOL (test code = 2237) 166 MG/DL RISK RATIO LDL/HDL (test code = 4.61 RATIO 2238) HEMOGLOBIN [id number] 00:00:00 Test Item Value Reference Range Interpretation Comments HEMOGLOBIN A1c (test code = 46963) 6.2 % HEMOGLOBIN [id number] 00:00:00 Test Item Value Reference Range Interpretation Comments HEMOGLOBIN A1c (test code = 37374) 6.2 % [id number] 00:00:00 Test Item Value Reference Range Interpretation Comments TSH, THIRD GENERATION (test code 0.988 UIU/ML = 2821) [id number] 00:00:00 Test Item Value Reference Range Interpretation Comments TSH, THIRD GENERATION (test code 0.988 UIU/ML = 2821) BASIC METABOLIC [id number] 00:00:00 Test Item Value Reference Range Interpretation Comments GLUCOSE (test code = 2217) 135 MG/DL BUN (test code = 2208) 25 MG/DL CREATININE (test code = 2214) 0.76 MG/DL eGFR AMER. (test code 101 ML/MIN/1.73 = 07439) eGFR NON- AMER. (test 87 ML/MIN/1.73 code = 84661) SODIUM (test code = 2231) 139 MEQ/L POTASSIUM (test code = 2228) 4.7 MEQ/L CHLORIDE (test code = 2215) 99 MEQ/L CARBON DIOXIDE (test code = 26 MEQ/L 2206) CALCIUM (test code = 2209) 9.4 MG/DL BASIC METABOLIC [id number] 00:00:00 Test Item Value Reference Range Interpretation Comments GLUCOSE (test code = 2217) 135 MG/DL BUN (test code = 2208) 25 MG/DL CREATININE (test code = 2214) 0.76 MG/DL eGFR AMER. (test code 101 ML/MIN/1.73 = 08844) eGFR NON- AMER. (test 87 ML/MIN/1.73 code = 11621) SODIUM (test code = 2231) 139 MEQ/L POTASSIUM (test code = 2228) 4.7 MEQ/L CHLORIDE (test code = 2215) 99 MEQ/L CARBON DIOXIDE (test code = 26 MEQ/L 2206) CALCIUM (test code = 2209) 9.4 MG/DL LIPID [id number] 00:00:00 Test Item Value Reference Range Interpretation Comments CHOLESTEROL (test code = 2210) 262 MG/DL TRIGLYCERIDES (test code = 2232) 300 MG/DL HDL CHOLESTEROL (test code = 2220) 36 MG/DL CALC LDL CHOL (test code = 2237) 166 MG/DL RISK RATIO LDL/HDL (test code = 4.61 RATIO 2238) LIPID [id number] 00:00:00 Test Item Value Reference Range Interpretation Comments CHOLESTEROL (test code = 2210) 262 MG/DL TRIGLYCERIDES (test code = 2232) 300 MG/DL HDL CHOLESTEROL (test code = 2220) 36 MG/DL CALC LDL CHOL (test code = 2237) 166 MG/DL RISK RATIO LDL/HDL (test code = 4.61 RATIO 2238) HEMOGLOBIN [id number] 00:00:00 Test Item Value Reference Range Interpretation Comments HEMOGLOBIN A1c (test code = 85606) 6.2 % HEMOGLOBIN [id number] 00:00:00 Test Item Value Reference Range Interpretation Comments HEMOGLOBIN A1c (test code = 69917) 6.2 % HEMOGLOBIN [id number] 00:00:00 Test Item Value Reference Range Interpretation Comments HEMOGLOBIN A1c (test code = 33714) 6.2 % [id number] 00:00:00 Test Item Value Reference Range Interpretation Comments TSH, THIRD GENERATION (test code 0.988 UIU/ML = 2821) [id number] 00:00:00 Test Item Value Reference Range Interpretation Comments TSH, THIRD GENERATION (test code 0.988 UIU/ML = 2821) [id number] 00:00:00 Test Item Value Reference Range Interpretation Comments TSH, THIRD GENERATION (test code 0.988 UIU/ML = 2821) COMPREHENSIVE METABOLIC [id number] 00:00:00 Test Item Value Reference Range Interpretation Comments GLUCOSE (test code = 2217) 109 MG/DL BUN (test code = 2208) 25 MG/DL CREATININE (test code = 2214) 0.78 MG/DL eGFR AMER. (test code 98 ML/MIN/1.73 = 17100) eGFR NON- AMER. (test 84 ML/MIN/1.73 code = 03911) CALC BUN/CREAT (test code = 32 RATIO [...] code = 2219) 25 U/L COMPREHENSIVE METABOLIC [id number] 00:00:00 Test Item Value Reference Range Interpretation Comments GLUCOSE (test code = 2217) 109 MG/DL BUN (test code = 2208) 25 MG/DL CREATININE (test code = 2214) 0.78 MG/DL eGFR AMER. (test code 98 ML/MIN/1.73 = 40369) eGFR NON- AMER. (test 84 ML/MIN/1.73 code = 19779) CALC BUN/CREAT (test code = 32 RATIO [...] (test code = 2219) 25 U/L LIPID [id number] 00:00:00 Test Item Value Reference Range Interpretation Comments CHOLESTEROL (test code = 2210) 295 MG/DL TRIGLYCERIDES (test code = 2232) 218 MG/DL HDL CHOLESTEROL (test code = 2220) 46 MG/DL CALC LDL CHOL (test code = 2237) 205 MG/DL RISK RATIO LDL/HDL (test code = 4.47 RATIO 2238) LIPID [id number] 00:00:00 Test Item Value Reference Range Interpretation Comments CHOLESTEROL (test code = 2210) 295 MG/DL TRIGLYCERIDES (test code = 2232) 218 MG/DL HDL CHOLESTEROL (test code = 2220) 46 MG/DL CALC LDL CHOL (test code = 2237) 205 MG/DL RISK RATIO LDL/HDL (test code = 4.47 RATIO 2238) HEMOGLOBIN [id number] 00:00:00 Test Item Value Reference Range Interpretation Comments HEMOGLOBIN A1c (test code = 06326) 7.0 % HEMOGLOBIN [id number] 00:00:00 Test Item Value Reference Range Interpretation Comments HEMOGLOBIN A1c (test code = 47949) 7.0 % HEMOGLOBIN [id number] 00:00:00 Test Item Value Reference Range Interpretation Comments HEMOGLOBIN A1c (test code = 56271) 7.0 % [id number] 00:00:00 Test Item Value Reference Range Interpretation Comments TSH, THIRD GENERATION (test code 0.565 UIU/ML = 2821) [id number] 00:00:00 Test Item Value Reference Range Interpretation Comments TSH, THIRD GENERATION (test code 0.565 UIU/ML = 2821) [id number] 00:00:00 Test Item Value Reference Range Interpretation Comments TSH, THIRD GENERATION (test code 0.565 UIU/ML = 2821) COMPREHENSIVE METABOLIC [id number] 00:00:00 Test Item Value Reference Range Interpretation Comments GLUCOSE (test code = 2217) 109 MG/DL BUN (test code = 2208) 25 MG/DL CREATININE (test code = 2214) 0.78 MG/DL eGFR AMER. (test code 98 ML/MIN/1.73 = 65335) eGFR NON- AMER. (test 84 ML/MIN/1.73 code = 73371) CALC BUN/CREAT (test code = 32 RATIO [...] code = 2219) 25 U/L COMPREHENSIVE METABOLIC [id number] 00:00:00 Test Item Value Reference Range Interpretation Comments GLUCOSE (test code = 2217) 109 MG/DL BUN (test code = 2208) 25 MG/DL CREATININE (test code = 2214) 0.78 MG/DL eGFR AMER. (test code 98 ML/MIN/1.73 = 07070) eGFR NON- AMER. (test 84 ML/MIN/1.73 code = 81720) CALC BUN/CREAT (test code = 32 RATIO [...] (test code = 2219) 25 U/L LIPID [id number] 00:00:00 Test Item Value Reference Range Interpretation Comments CHOLESTEROL (test code = 2210) 295 MG/DL TRIGLYCERIDES (test code = 2232) 218 MG/DL HDL CHOLESTEROL (test code = 2220) 46 MG/DL CALC LDL CHOL (test code = 2237) 205 MG/DL RISK RATIO LDL/HDL (test code = 4.47 RATIO 2238) LIPID [id number] 00:00:00 Test Item Value Reference Range Interpretation Comments CHOLESTEROL (test code = 2210) 295 MG/DL TRIGLYCERIDES (test code = 2232) 218 MG/DL HDL CHOLESTEROL (test code = 2220) 46 MG/DL CALC LDL CHOL (test code = 2237) 205 MG/DL RISK RATIO LDL/HDL (test code = 4.47 RATIO 2238) HEMOGLOBIN [id number] 00:00:00 Test Item Value Reference Range Interpretation Comments HEMOGLOBIN A1c (test code = 64268) 7.0 % HEMOGLOBIN [id number] 00:00:00 Test Item Value Reference Range Interpretation Comments HEMOGLOBIN A1c (test code = 74316) 7.0 % HEMOGLOBIN [id number] 00:00:00 Test Item Value Reference Range Interpretation Comments HEMOGLOBIN A1c (test code = 41776) 7.0 % [id number] 00:00:00 Test Item Value Reference Range Interpretation Comments TSH, THIRD GENERATION (test code 0.565 UIU/ML = 2821) [id number] 00:00:00 Test Item Value Reference Range Interpretation Comments TSH, THIRD GENERATION (test code 0.565 UIU/ML = 2821) [id number] 00:00:00 Test Item Value Reference Range Interpretation Comments TSH, THIRD GENERATION (test code 0.565 UIU/ML = 2821) COMPREHENSIVE METABOLIC [id number] 00:00:00 Test Item Value Reference Range Interpretation Comments GLUCOSE (test code = 2217) 109 MG/DL BUN (test code = 2208) 25 MG/DL CREATININE (test code = 2214) 0.78 MG/DL eGFR AMER. (test code 98 ML/MIN/1.73 = 36919) eGFR NON- AMER. (test 84 ML/MIN/1.73 code = 09933) CALC BUN/CREAT (test code = 32 RATIO [...] (test code = 2219) 25 U/L LIPID [id number] 00:00:00 Test Item Value Reference Range Interpretation Comments CHOLESTEROL (test code = 2210) 295 MG/DL TRIGLYCERIDES (test code = 2232) 218 MG/DL HDL CHOLESTEROL (test code = 2220) 46 MG/DL CALC LDL CHOL (test code = 2237) 205 MG/DL RISK RATIO LDL/HDL (test code = 4.47 RATIO 2238) HEMOGLOBIN [id number] 00:00:00 Test Item Value Reference Range Interpretation Comments HEMOGLOBIN A1c (test code = 97316) 7.0 % HEMOGLOBIN [id number] 00:00:00 Test Item Value Reference Range Interpretation Comments HEMOGLOBIN A1c (test code = 34012) 7.0 % [id number] 00:00:00 Test Item Value Reference Range Interpretation Comments TSH, THIRD GENERATION (test code 0.565 UIU/ML = 2821) [id number] 00:00:00 Test Item Value Reference Range Interpretation Comments TSH, THIRD GENERATION (test code 0.565 UIU/ML = 2821) COMPREHENSIVE METABOLIC [id number] 00:00:00 Test Item Value Reference Range Interpretation Comments GLUCOSE (test code = 2217) 109 MG/DL BUN (test code = 2208) 25 MG/DL CREATININE (test code = 2214) 0.78 MG/DL eGFR AMER. (test code 98 ML/MIN/1.73 = 19862) eGFR NON- AMER. (test 84 ML/MIN/1.73 code = 72189) CALC BUN/CREAT (test code = 32 RATIO [...] code = 2219) 25 U/L COMPREHENSIVE METABOLIC [id number] 00:00:00 Test Item Value Reference Range Interpretation Comments GLUCOSE (test code = 2217) 109 MG/DL BUN (test code = 2208) 25 MG/DL CREATININE (test code = 2214) 0.78 MG/DL eGFR AMER. (test code 98 ML/MIN/1.73 = 15870) eGFR NON- AMER. (test 84 ML/MIN/1.73 code = 95306) CALC BUN/CREAT (test code = 32 RATIO [...] (test code = 2219) 25 U/L LIPID [id number] 00:00:00 Test Item Value Reference Range Interpretation Comments CHOLESTEROL (test code = 2210) 295 MG/DL TRIGLYCERIDES (test code = 2232) 218 MG/DL HDL CHOLESTEROL (test code = 2220) 46 MG/DL CALC LDL CHOL (test code = 2237) 205 MG/DL RISK RATIO LDL/HDL (test code = 4.47 RATIO 2238) LIPID [id number] 00:00:00 Test Item Value Reference Range Interpretation Comments CHOLESTEROL (test code = 2210) 295 MG/DL TRIGLYCERIDES (test code = 2232) 218 MG/DL HDL CHOLESTEROL (test code = 2220) 46 MG/DL CALC LDL CHOL (test code = 2237) 205 MG/DL RISK RATIO LDL/HDL (test code = 4.47 RATIO 2238) HEMOGLOBIN [id number] 00:00:00 Test Item Value Reference Range Interpretation Comments HEMOGLOBIN A1c (test code = 23905) 7.0 % HEMOGLOBIN [id number] 00:00:00 Test Item Value Reference Range Interpretation Comments HEMOGLOBIN A1c (test code = 77454) 7.0 % HEMOGLOBIN [id number] 00:00:00 Test Item Value Reference Range Interpretation Comments HEMOGLOBIN A1c (test code = 39353) 7.0 % [id number] 00:00:00 Test Item Value Reference Range Interpretation Comments TSH, THIRD GENERATION (test code 0.565 UIU/ML = 2821) [id number] 00:00:00 Test Item Value Reference Range Interpretation Comments TSH, THIRD GENERATION (test code 0.565 UIU/ML = 2821) [id number] 00:00:00 Test Item Value Reference Range Interpretation Comments TSH, THIRD GENERATION (test code 0.565 UIU/ML = 2821) [id number] 00:00:00 Test Item Value Reference Range Interpretation Comments TSH, THIRD GENERATION (test code 0.379 UIU/ML = 2821) [id number] 00:00:00 Test Item Value Reference Range Interpretation Comments TSH, THIRD GENERATION (test code 0.379 UIU/ML = 2821) [id number] 00:00:00 Test Item Value Reference Range Interpretation Comments TSH, THIRD GENERATION (test code 0.379 UIU/ML = 2821) [id number] 00:00:00 Test Item Value Reference Range Interpretation Comments TSH, THIRD GENERATION (test code 0.379 UIU/ML = 2821) [id number] 00:00:00 Test Item Value Reference Range Interpretation Comments TSH, THIRD GENERATION (test code 0.379 UIU/ML = 2821) [id number] 00:00:00 Test Item Value Reference Range Interpretation Comments TSH, THIRD GENERATION (test code 0.379 UIU/ML = 2821) [id number] 00:00:00 Test Item Value Reference Range Interpretation Comments TSH, THIRD GENERATION (test code 0.379 UIU/ML = 2821) [id number] 00:00:00 Test Item Value Reference Range Interpretation Comments TSH, THIRD GENERATION (test code 0.379 UIU/ML = 2821) [id number] 00:00:00 Test Item Value Reference Range Interpretation Comments TSH, THIRD GENERATION (test code 0.379 UIU/ML = 2821) [id number] 00:00:00 Test Item Value Reference Range Interpretation Comments TSH, THIRD GENERATION (test code 0.379 UIU/ML = 2821) [id number] 00:00:00 Test Item Value Reference Range Interpretation Comments TSH, THIRD GENERATION (test code 0.379 UIU/ML = 2821) CULTURE, [id number] 00:00:00 Test Item Value Reference Range Interpretation Comments CULTURE, URINE (test SPECIMEN NUMBER: code = 68419) [id number] CULTURE, [id number] 00:00:00 Test Item Value Reference Range Interpretation Comments CULTURE, URINE (test SPECIMEN NUMBER: code = 68003) [id number] CULTURE, [id number] 00:00:00 Test Item Value Reference Range Interpretation Comments CULTURE, URINE (test SPECIMEN NUMBER: code = 37038) [id number] CULTURE, [id number] 00:00:00 Test Item Value Reference Range Interpretation Comments CULTURE, URINE (test SPECIMEN NUMBER: code = 35572) [id number] CULTURE, [id number] 00:00:00 Test Item Value Reference Range Interpretation Comments CULTURE, URINE (test SPECIMEN NUMBER: code = 03228) [id number] CULTURE, [id number] 00:00:00 Test Item Value Reference Range Interpretation Comments CULTURE, URINE (test SPECIMEN NUMBER: code = 17508) [id number] CULTURE, [id number] 00:00:00 Test Item Value Reference Range Interpretation Comments CULTURE, URINE (test SPECIMEN NUMBER: code = 28798) [id number] COMPREHENSIVE METABOLIC [id number] 00:00:00 Test Item Value Reference Range Interpretation Comments GLUCOSE (test code = 2217) 128 MG/DL BUN (test code = 2208) 26 MG/DL CREATININE (test code = 2214) 0.92 MG/DL eGFR AMER. (test code 81 ML/MIN/1.73 = 42224) eGFR NON- AMER. (test 70 ML/MIN/1.73 code = 63536) CALC BUN/CREAT (test code = 28 RATIO [...] code = 2219) 29 U/L COMPREHENSIVE METABOLIC [id number] 00:00:00 Test Item Value Reference Range Interpretation Comments GLUCOSE (test code = 2217) 128 MG/DL BUN (test code = 2208) 26 MG/DL CREATININE (test code = 2214) 0.92 MG/DL eGFR AMER. (test code 81 ML/MIN/1.73 = 34512) eGFR NON- AMER. (test 70 ML/MIN/1.73 code = 57084) CALC BUN/CREAT (test code = 28 RATIO [...] code = 2219) 29 U/L ACUTE HEPATITIS [id number] 00:00:00 Test Item Value Reference Range Interpretation Comments HEPATITIS A IgM (test code = NON-REACTIVE 36359) HEPATITIS B CORE IgM (test code NON-REACTIVE = 4644) HEPATITIS B SURF AG (test code = NON-REACTIVE 2739) HEPATITIS C ANTIBODY (test code NON-REACTIVE = 4675) INTERPRETATION HEPATITIS A: (NOTE) (test code = 2552) INTERPRETATION HEPATITIS B: (NOTE) (test code = 05456) INTERPRETATION HEPATITIS C: (NOTE) (test code = 21062) ACUTE HEPATITIS [id number] 00:00:00 Test Item Value Reference Range Interpretation Comments HEPATITIS A IgM (test code = NON-REACTIVE 85765) HEPATITIS B CORE IgM (test code NON-REACTIVE = 4644) HEPATITIS B SURF AG (test code = NON-REACTIVE 2739) HEPATITIS C ANTIBODY (test code NON-REACTIVE = 4675) INTERPRETATION HEPATITIS A: (NOTE) (test code = 2552) INTERPRETATION HEPATITIS B: (NOTE) (test code = 35230) INTERPRETATION HEPATITIS C: (NOTE) (test code = 57994) [id number] 00:00:00 Test Item Value Reference Range Interpretation Comments AMYLASE (test code = 2205) 32 U/L [id number] 00:00:00 Test Item Value Reference Range Interpretation Comments AMYLASE (test code = 2205) 32 U/L [id number] 00:00:00 Test Item Value Reference Range Interpretation Comments LIPASE (test code = 2057) 22 U/L [id number] 00:00:00 Test Item Value Reference Range Interpretation Comments LIPASE (test code = 2057) 22 U/L [id number] 00:00:00 Test Item Value Reference Range Interpretation Comments LIPASE (test code = 2057) 22 U/L COMPREHENSIVE METABOLIC [id number] 00:00:00 Test Item Value Reference Range Interpretation Comments GLUCOSE (test code = 2217) 128 MG/DL BUN (test code = 2208) 26 MG/DL CREATININE (test code = 2214) 0.92 MG/DL eGFR AMER. (test code 81 ML/MIN/1.73 = 43328) eGFR NON- AMER. (test 70 ML/MIN/1.73 code = 38704) CALC BUN/CREAT (test code = 28 RATIO [...] code = 2219) 29 U/L COMPREHENSIVE METABOLIC [id number] 00:00:00 Test Item Value Reference Range Interpretation Comments GLUCOSE (test code = 2217) 128 MG/DL BUN (test code = 2208) 26 MG/DL CREATININE (test code = 2214) 0.92 MG/DL eGFR AMER. (test code 81 ML/MIN/1.73 = 71517) eGFR NON- AMER. (test 70 ML/MIN/1.73 code = 56954) CALC BUN/CREAT (test code = 28 RATIO [...] code = 2219) 29 U/L ACUTE HEPATITIS [id number] 00:00:00 Test Item Value Reference Range Interpretation Comments HEPATITIS A IgM (test code = NON-REACTIVE 66161) HEPATITIS B CORE IgM (test code NON-REACTIVE = 4644) HEPATITIS B SURF AG (test code = NON-REACTIVE 2739) HEPATITIS C ANTIBODY (test code NON-REACTIVE = 4675) INTERPRETATION HEPATITIS A: (NOTE) (test code = 2552) INTERPRETATION HEPATITIS B: (NOTE) (test code = 80809) INTERPRETATION HEPATITIS C: (NOTE) (test code = 59933) ACUTE HEPATITIS [id number] 00:00:00 Test Item Value Reference Range Interpretation Comments HEPATITIS A IgM (test code = NON-REACTIVE 81163) HEPATITIS B CORE IgM (test code NON-REACTIVE = 4644) HEPATITIS B SURF AG (test code = NON-REACTIVE 2739) HEPATITIS C ANTIBODY (test code NON-REACTIVE = 4675) INTERPRETATION HEPATITIS A: (NOTE) (test code = 2552) INTERPRETATION HEPATITIS B: (NOTE) (test code = 46092) INTERPRETATION HEPATITIS C: (NOTE) (test code = 57156) [id number] 00:00:00 Test Item Value Reference Range Interpretation Comments AMYLASE (test code = 2205) 32 U/L [id number] 00:00:00 Test Item Value Reference Range Interpretation Comments AMYLASE (test code = 2205) 32 U/L [id number] 00:00:00 Test Item Value Reference Range Interpretation Comments LIPASE (test code = 2057) 22 U/L [id number] 00:00:00 Test Item Value Reference Range Interpretation Comments LIPASE (test code = 2057) 22 U/L [id number] 00:00:00 Test Item Value Reference Range Interpretation Comments LIPASE (test code = 2057) 22 U/L COMPREHENSIVE METABOLIC [id number] 00:00:00 Test Item Value Reference Range Interpretation Comments GLUCOSE (test code = 2217) 128 MG/DL BUN (test code = 2208) 26 MG/DL CREATININE (test code = 2214) 0.92 MG/DL eGFR AMER. (test code 81 ML/MIN/1.73 = 66046) eGFR NON- AMER. (test 70 ML/MIN/1.73 code = 04133) CALC BUN/CREAT (test code = 28 RATIO [...] code = 2219) 29 U/L ACUTE HEPATITIS [id number] 00:00:00 Test Item Value Reference Range Interpretation Comments HEPATITIS A IgM (test code = NON-REACTIVE 44244) HEPATITIS B CORE IgM (test code NON-REACTIVE = 6344) HEPATITIS B SURF AG (test code = NON-REACTIVE 6309) HEPATITIS C ANTIBODY (test code NON-REACTIVE = 6647) INTERPRETATION HEPATITIS A: (NOTE) (test code = 2552) INTERPRETATION HEPATITIS B: (NOTE) (test code = 00739) INTERPRETATION HEPATITIS C: (NOTE) (test code = 51768) [id number] 00:00:00 Test Item Value Reference Range Interpretation Comments AMYLASE (test code = 5) 32 U/L [id number] 00:00:00 Test Item Value Reference Range Interpretation Comments LIPASE (test code = 2057) 22 U/L [id number] 00:00:00 Test Item Value Reference Range Interpretation Comments LIPASE (test code = 2057) 22 U/L COMPREHENSIVE METABOLIC [id number] 00:00:00 Test Item Value Reference Range Interpretation Comments GLUCOSE (test code = 2217) 128 MG/DL BUN (test code = 2208) 26 MG/DL CREATININE (test code = 2214) 0.92 MG/DL eGFR AMER. (test code 81 ML/MIN/1.73 = 24354) eGFR NON- AMER. (test 70 ML/MIN/1.73 code = 12463) CALC BUN/CREAT (test code = 28 RATIO [...] code = 2219) 29 U/L COMPREHENSIVE METABOLIC [id number] 00:00:00 Test Item Value Reference Range Interpretation Comments GLUCOSE (test code = 2217) 128 MG/DL BUN (test code = 2208) 26 MG/DL CREATININE (test code = 2214) 0.92 MG/DL eGFR AMER. (test code 81 ML/MIN/1.73 = 42160) eGFR NON- AMER. (test 70 ML/MIN/1.73 code = 85710) CALC BUN/CREAT (test code = 28 RATIO [...] code = 2219) 29 U/L ACUTE HEPATITIS [id number] 00:00:00 Test Item Value Reference Range Interpretation Comments HEPATITIS A IgM (test code = NON-REACTIVE 16122) HEPATITIS B CORE IgM (test code NON-REACTIVE = 4644) HEPATITIS B SURF AG (test code = NON-REACTIVE 2739) HEPATITIS C ANTIBODY (test code NON-REACTIVE = 4675) INTERPRETATION HEPATITIS A: (NOTE) (test code = 2552) INTERPRETATION HEPATITIS B: (NOTE) (test code = 32159) INTERPRETATION HEPATITIS C: (NOTE) (test code = 13058) ACUTE HEPATITIS [id number] 00:00:00 Test Item Value Reference Range Interpretation Comments HEPATITIS A IgM (test code = NON-REACTIVE 49004) HEPATITIS B CORE IgM (test code NON-REACTIVE = 4644) HEPATITIS B SURF AG (test code = NON-REACTIVE 2739) HEPATITIS C ANTIBODY (test code NON-REACTIVE = 4675) INTERPRETATION HEPATITIS A: (NOTE) (test code = 2552) INTERPRETATION HEPATITIS B: (NOTE) (test code = 70083) INTERPRETATION HEPATITIS C: (NOTE) (test code = 76429) [id number] 00:00:00 Test Item Value Reference Range Interpretation Comments AMYLASE (test code = 2205) 32 U/L [id number] 00:00:00 Test Item Value Reference Range Interpretation Comments AMYLASE (test code = 2205) 32 U/L [id number] 00:00:00 Test Item Value Reference Range Interpretation Comments LIPASE (test code = 2057) 22 U/L [id number] 00:00:00 Test Item Value Reference Range Interpretation Comments LIPASE (test code = 2057) 22 U/L [id number] 00:00:00 Test Item Value Reference Range Interpretation Comments LIPASE (test code = 2057) 22 U/L [id number] 00:00:00 Test Item Value Reference Range Interpretation Comments TSH, THIRD GENERATION (test code 4.890 UIU/ML = 2821) [id number] 00:00:00 Test Item Value Reference Range Interpretation Comments TSH, THIRD GENERATION (test code 4.890 UIU/ML = 2821) [id number] 00:00:00 Test Item Value Reference Range Interpretation Comments TSH, THIRD GENERATION (test code 4.890 UIU/ML = 2821) COMPREHENSIVE METABOLIC [id number] 00:00:00 Test Item Value Reference Range Interpretation Comments GLUCOSE (test code = 2217) 121 MG/DL BUN (test code = 2208) 40 MG/DL CREATININE (test code = 2214) 1.48 MG/DL eGFR AMER. (test code 45 ML/MIN/1.73 = 02026) eGFR NON- AMER. (test 39 ML/MIN/1.73 code = 91084) CALC BUN/CREAT (test code = 27 RATIO [...] code = 2219) 20 U/L COMPREHENSIVE METABOLIC [id number] 00:00:00 Test Item Value Reference Range Interpretation Comments GLUCOSE (test code = 2217) 121 MG/DL BUN (test code = 2208) 40 MG/DL CREATININE (test code = 2214) 1.48 MG/DL eGFR AMER. (test code 45 ML/MIN/1.73 = 48051) eGFR NON- AMER. (test 39 ML/MIN/1.73 code = 34373) CALC BUN/CREAT (test code = 27 RATIO [...] ALT (test code = 2219) 20 U/L [id number] 00:00:00 Test Item Value Reference Range Interpretation Comments TSH, THIRD GENERATION (test code 4.890 UIU/ML = 2821) [id number] 00:00:00 Test Item Value Reference Range Interpretation Comments TSH, THIRD GENERATION (test code 4.890 UIU/ML = 2821) [id number] 00:00:00 Test Item Value Reference Range Interpretation Comments TSH, THIRD GENERATION (test code 4.890 UIU/ML = 2821) COMPREHENSIVE METABOLIC [id number] 00:00:00 Test Item Value Reference Range Interpretation Comments GLUCOSE (test code = 2217) 121 MG/DL BUN (test code = 2208) 40 MG/DL CREATININE (test code = 2214) 1.48 MG/DL eGFR AMER. (test code 45 ML/MIN/1.73 = 49218) eGFR NON- AMER. (test 39 ML/MIN/1.73 code = 12891) CALC BUN/CREAT (test code = 27 RATIO [...] code = 2219) 20 U/L COMPREHENSIVE METABOLIC [id number] 00:00:00 Test Item Value Reference Range Interpretation Comments GLUCOSE (test code = 2217) 121 MG/DL BUN (test code = 2208) 40 MG/DL CREATININE (test code = 2214) 1.48 MG/DL eGFR AMER. (test code 45 ML/MIN/1.73 = 79386) eGFR NON- AMER. (test 39 ML/MIN/1.73 code = 02961) CALC BUN/CREAT (test code = 27 RATIO [...] ALT (test code = 2219) 20 U/L [id number] 00:00:00 Test Item Value Reference Range Interpretation Comments TSH, THIRD GENERATION (test code 4.890 UIU/ML = 2821) [id number] 00:00:00 Test Item Value Reference Range Interpretation Comments TSH, THIRD GENERATION (test code 4.890 UIU/ML = 2821) COMPREHENSIVE METABOLIC [id number] 00:00:00 Test Item Value Reference Range Interpretation Comments GLUCOSE (test code = 2217) 121 MG/DL BUN (test code = 2208) 40 MG/DL CREATININE (test code = 2214) 1.48 MG/DL eGFR AMER. (test code 45 ML/MIN/1.73 = 26071) eGFR NON- AMER. (test 39 ML/MIN/1.73 code = 72332) CALC BUN/CREAT (test code = 27 RATIO [...] ALT (test code = 2219) 20 U/L [id number] 00:00:00 Test Item Value Reference Range Interpretation Comments TSH, THIRD GENERATION (test code 4.890 UIU/ML = 2821) [id number] 00:00:00 Test Item Value Reference Range Interpretation Comments TSH, THIRD GENERATION (test code 4.890 UIU/ML = 2821) [id number] 00:00:00 Test Item Value Reference Range Interpretation Comments TSH, THIRD GENERATION (test code 4.890 UIU/ML = 2821) COMPREHENSIVE METABOLIC [id number] 00:00:00 Test Item Value Reference Range Interpretation Comments GLUCOSE (test code = 2217) 121 MG/DL BUN (test code = 2208) 40 MG/DL CREATININE (test code = 2214) 1.48 MG/DL eGFR AMER. (test code 45 ML/MIN/1.73 = 99355) eGFR NON- AMER. (test 39 ML/MIN/1.73 code = 26603) CALC BUN/CREAT (test code = 27 RATIO [...] ALKALINE PHOSPHATASE (test 99 U/L code = 2203) AST (test code = 2218) 15 U/L ALT (test code = 2219) 20 U/L COMPREHENSIVE METABOLIC [id number] 00:00:00 Test Item Value Reference Range Interpretation Comments GLUCOSE (test code = 2217) 121 MG/DL BUN (test code = 2208) 40 MG/DL CREATININE (test code = 2214) 1.48 MG/DL eGFR AMER. (test code 45 ML/MIN/1.73 = 47447) eGFR NON- AMER. (test 39 ML/MIN/1.73 code = 83662) CALC BUN/CREAT (test code = 27 RATIO 2235) SODIUM (test code = 2231) 143 MEQ/L POTASSIUM (test code = 2228) 5.3 MEQ/L CHLORIDE (test code = 2215) 100 MEQ/L CARBON DIOXIDE (test code = 27 MEQ/L 2206) CALCIUM (test code = 2209) 9.8 MG/DL PROTEIN, TOTAL (test code = 8.1 G/DL 9) ALBUMIN (test code = 2201) 5.3 G/DL CALC GLOBULIN (test code = 2.8 G/DL 2240) CALC A/G RATIO (test code = 1.9 RATIO 2234) BILIRUBIN, TOTAL (test code = 0.2 MG/DL 2206) ALKALINE PHOSPHATASE (test 99 U/L code = 2203) AST (test code = 2218) 15 U/L ALT (test code = 2219) 20 U/L LIPID [id number] 00:00:00 Test Item Value Reference Range Interpretation Comments CHOLESTEROL (test code = 2210) 261 MG/DL TRIGLYCERIDES (test code = 2232) 165 MG/DL HDL CHOLESTEROL (test code = 2220) 58 MG/DL CALC LDL CHOL (test code = 2237) 170 MG/DL RISK RATIO LDL/HDL (test code = 2.93 RATIO 2238) LIPID [id number] 00:00:00 Test Item Value Reference Range Interpretation Comments CHOLESTEROL (test code = 2210) 261 MG/DL TRIGLYCERIDES (test code = 2232) 165 MG/DL HDL CHOLESTEROL (test code = 2220) 58 MG/DL CALC LDL CHOL (test code = 2237) 170 MG/DL RISK RATIO LDL/HDL (test code = 2.93 RATIO 2238) CBC W/AUTO [id number] 00:00:00 Test Item Value Reference Range Interpretation [...] code = 1015) 378 K/UL CBC W/AUTO [id number] 00:00:00 Test Item Value Reference Range Interpretation [...] code = 1015) 378 K/UL CBC W/AUTO [id number] 00:00:00 Test Item Value Reference Range Interpretation [...] (test code = 1015) 378 K/UL HEMOGLOBIN [id number] 00:00:00 Test Item Value Reference Range Interpretation Comments HEMOGLOBIN A1c (test code = 39099) 6.4 % HEMOGLOBIN [id number] 00:00:00 Test Item Value Reference Range Interpretation Comments HEMOGLOBIN A1c (test code = 46439) 6.4 % HEMOGLOBIN [id number] 00:00:00 Test Item Value Reference Range Interpretation Comments HEMOGLOBIN A1c (test code = 70793) 6.4 % [id number] 00:00:00 Test Item Value Reference Range Interpretation Comments TSH (test code = 2821) 5.290 UIU/ML [id number] 00:00:00 Test Item Value Reference Range Interpretation Comments TSH (test code = 2821) 5.290 UIU/ML [id number] 00:00:00 Test Item Value Reference Range Interpretation Comments TSH (test code = 2821) 5.290 UIU/ML LIPID [id number] 00:00:00 Test Item Value Reference Range Interpretation Comments CHOLESTEROL (test code = 2210) 261 MG/DL TRIGLYCERIDES (test code = 2232) 165 MG/DL HDL CHOLESTEROL (test code = 2220) 58 MG/DL CALC LDL CHOL (test code = 2237) 170 MG/DL RISK RATIO LDL/HDL (test code = 2.93 RATIO 2238) LIPID [id number] 00:00:00 Test Item Value Reference Range Interpretation Comments CHOLESTEROL (test code = 2210) 261 MG/DL TRIGLYCERIDES (test code = 2232) 165 MG/DL HDL CHOLESTEROL (test code = 2220) 58 MG/DL CALC LDL CHOL (test code = 2237) 170 MG/DL RISK RATIO LDL/HDL (test code = 2.93 RATIO 2238) CBC W/AUTO [id number] 00:00:00 Test Item Value Reference Range Interpretation [...] code = 1015) 378 K/UL CBC W/AUTO [id number] 00:00:00 Test Item Value Reference Range Interpretation [...] code = 1015) 378 K/UL CBC W/AUTO [id number] 00:00:00 Test Item Value Reference Range Interpretation [...] (test code = 1015) 378 K/UL HEMOGLOBIN [id number] 00:00:00 Test Item Value Reference Range Interpretation Comments HEMOGLOBIN A1c (test code = 40489) 6.4 % HEMOGLOBIN [id number] 00:00:00 Test Item Value Reference Range Interpretation Comments HEMOGLOBIN A1c (test code = 89478) 6.4 % HEMOGLOBIN [id number] 00:00:00 Test Item Value Reference Range Interpretation Comments HEMOGLOBIN A1c (test code = 37316) 6.4 % [id number] 00:00:00 Test Item Value Reference Range Interpretation Comments TSH (test code = 2821) 5.290 UIU/ML [id number] 00:00:00 Test Item Value Reference Range Interpretation Comments TSH (test code = 2821) 5.290 UIU/ML [id number] 00:00:00 Test Item Value Reference Range Interpretation Comments TSH (test code = 2821) 5.290 UIU/ML LIPID [id number] 00:00:00 Test Item Value Reference Range Interpretation Comments CHOLESTEROL (test code = 2210) 261 MG/DL TRIGLYCERIDES (test code = 2232) 165 MG/DL HDL CHOLESTEROL (test code = 2220) 58 MG/DL CALC LDL CHOL (test code = 2237) 170 MG/DL RISK RATIO LDL/HDL (test code = 2.93 RATIO 2238) CBC W/AUTO [id number] 00:00:00 Test Item Value Reference Range Interpretation [...] code = 1015) 378 K/UL CBC W/AUTO [id number] 00:00:00 Test Item Value Reference Range Interpretation [...] (test code = 1015) 378 K/UL HEMOGLOBIN [id number] 00:00:00 Test Item Value Reference Range Interpretation Comments HEMOGLOBIN A1c (test code = 31733) 6.4 % HEMOGLOBIN [id number] 00:00:00 Test Item Value Reference Range Interpretation Comments HEMOGLOBIN A1c (test code = 58096) 6.4 % [id number] 00:00:00 Test Item Value Reference Range Interpretation Comments TSH (test code = 2821) 5.290 UIU/ML [id number] 00:00:00 Test Item Value Reference Range Interpretation Comments TSH (test code = 2821) 5.290 UIU/ML LIPID [id number] 00:00:00 Test Item Value Reference Range Interpretation Comments CHOLESTEROL (test code = 2210) 261 MG/DL TRIGLYCERIDES (test code = 2232) 165 MG/DL HDL CHOLESTEROL (test code = 2220) 58 MG/DL CALC LDL CHOL (test code = 2237) 170 MG/DL RISK RATIO LDL/HDL (test code = 2.93 RATIO 2238) LIPID [id number] 00:00:00 Test Item Value Reference Range Interpretation Comments CHOLESTEROL (test code = 2210) 261 MG/DL TRIGLYCERIDES (test code = 2232) 165 MG/DL HDL CHOLESTEROL (test code = 2220) 58 MG/DL CALC LDL CHOL (test code = 2237) 170 MG/DL RISK RATIO LDL/HDL (test code = 2.93 RATIO 2238) CBC W/AUTO [id number] 00:00:00 Test Item Value Reference Range Interpretation [...] code = 1015) 378 K/UL CBC W/AUTO [id number] 00:00:00 Test Item Value Reference Range Interpretation [...] code = 1015) 378 K/UL CBC W/AUTO [id number] 00:00:00 Test Item Value Reference Range Interpretation [...] (test code = 1015) 378 K/UL HEMOGLOBIN [id number] 00:00:00 Test Item Value Reference Range Interpretation Comments HEMOGLOBIN A1c (test code = 31032) 6.4 % HEMOGLOBIN [id number] 00:00:00 Test Item Value Reference Range Interpretation Comments HEMOGLOBIN A1c (test code = 35644) 6.4 % HEMOGLOBIN [id number] 00:00:00 Test Item Value Reference Range Interpretation Comments HEMOGLOBIN A1c (test code = 21507) 6.4 % [id number] 00:00:00 Test Item Value Reference Range Interpretation Comments TSH (test code = 2821) 5.290 UIU/ML [id number] 00:00:00 Test Item Value Reference Range Interpretation Comments TSH (test code = 2821) 5.290 UIU/ML [id number] 00:00:00 Test Item Value Reference Range Interpretation [...] code = 2821) 1.030 UIU/ML COMPREHENSIVE METABOLIC [id number] 00:00:00 Test Item Value Reference Range Interpretation Comments GLUCOSE (test code = 2217) 106 MG/DL BUN (test code = 2208) 23 MG/DL CREATININE (test code = 2214) 0.66 MG/DL eGFR AMER. (test code 114 ML/MIN/1.73 = 78727) eGFR NON- AMER. (test 99 ML/MIN/1.73 code = 68974) CALC BUN/CREAT (test code = 35 RATIO [...] code = 2219) 31 U/L COMPREHENSIVE METABOLIC [id number] 00:00:00 Test Item Value Reference Range Interpretation Comments GLUCOSE (test code = 2217) 106 MG/DL BUN (test code = 2208) 23 MG/DL CREATININE (test code = 2214) 0.66 MG/DL eGFR AMER. (test code 114 ML/MIN/1.73 = 07646) eGFR NON- AMER. (test 99 ML/MIN/1.73 code = 72196) CALC BUN/CREAT (test code = 35 RATIO [...] code = 2821) 0.335 UIU/ML COMPREHENSIVE METABOLIC [id number] 00:00:00 Test Item Value Reference Range Interpretation Comments GLUCOSE (test code = 2217) 106 MG/DL BUN (test code = 2208) 23 MG/DL CREATININE (test code = 2214) 0.66 MG/DL eGFR AMER. (test code 114 ML/MIN/1.73 = 15926) eGFR NON- AMER. (test 99 ML/MIN/1.73 code = 33655) CALC BUN/CREAT (test code = 35 RATIO [...] code = 2219) 31 U/L COMPREHENSIVE METABOLIC [id number] 00:00:00 Test Item Value Reference Range Interpretation Comments GLUCOSE (test code = 2217) 106 MG/DL BUN (test code = 2208) 23 MG/DL CREATININE (test code = 2214) 0.66 MG/DL eGFR AMER. (test code 114 ML/MIN/1.73 = 56452) eGFR NON- AMER. (test 99 ML/MIN/1.73 code = 22504) CALC BUN/CREAT (test code = 35 RATIO [...] code = 2821) 0.335 UIU/ML COMPREHENSIVE METABOLIC [id number] 00:00:00 Test Item Value Reference Range Interpretation Comments GLUCOSE (test code = 2217) 106 MG/DL BUN (test code = 2208) 23 MG/DL CREATININE (test code = 2214) 0.66 MG/DL eGFR AMER. (test code 114 ML/MIN/1.73 = 84554) eGFR NON- AMER. (test 99 ML/MIN/1.73 code = 12975) CALC BUN/CREAT (test code = 35 RATIO [...] code = 2821) 0.335 UIU/ML COMPREHENSIVE METABOLIC [id number] 00:00:00 Test Item Value Reference Range Interpretation Comments GLUCOSE (test code = 2217) 106 MG/DL BUN (test code = 2208) 23 MG/DL CREATININE (test code = 2214) 0.66 MG/DL eGFR AMER. (test code 114 ML/MIN/1.73 = 57753) eGFR NON- AMER. (test 99 ML/MIN/1.73 code = 62797) CALC BUN/CREAT (test code = 35 RATIO [...] code = 2219) 31 U/L COMPREHENSIVE METABOLIC [id number] 00:00:00 Test Item Value Reference Range Interpretation Comments GLUCOSE (test code = 2217) 106 MG/DL BUN (test code = 2208) 23 MG/DL CREATININE (test code = 2214) 0.66 MG/DL eGFR AMER. (test code 114 ML/MIN/1.73 = 35785) eGFR NON- AMER. (test 99 ML/MIN/1.73 code = 08893) CALC BUN/CREAT (test code = 35 RATIO [...] code = 2821) 0.335 UIU/ML COMPREHENSIVE METABOLIC [id number] 00:00:00 Test Item Value Reference Range Interpretation Comments GLUCOSE (test code = 2217) 103 MG/DL BUN (test code = 2208) 15 MG/DL CREATININE (test code = 2214) 0.77 MG/DL eGFR AMER. (test code 101 ML/MIN/1.73 = 07869) eGFR NON- AMER. (test 87 ML/MIN/1.73 code = 54077) CALC BUN/CREAT (test code = 19 RATIO [...] code = 2219) 24 U/L COMPREHENSIVE METABOLIC [id number] 00:00:00 Test Item Value Reference Range Interpretation Comments GLUCOSE (test code = 2217) 103 MG/DL BUN (test code = 2208) 15 MG/DL CREATININE (test code = 2214) 0.77 MG/DL eGFR AMER. (test code 101 ML/MIN/1.73 = 75495) eGFR NON- AMER. (test 87 ML/MIN/1.73 code = 04043) CALC BUN/CREAT (test code = 19 RATIO [...] code = 2821) 0.424 UIU/ML COMPREHENSIVE METABOLIC [id number] 00:00:00 Test Item Value Reference Range Interpretation Comments GLUCOSE (test code = 2217) 103 MG/DL BUN (test code = 2208) 15 MG/DL CREATININE (test code = 2214) 0.77 MG/DL eGFR AMER. (test code 101 ML/MIN/1.73 = 18871) eGFR NON- AMER. (test 87 ML/MIN/1.73 code = 08654) CALC BUN/CREAT (test code = 19 RATIO [...] code = 2219) 24 U/L COMPREHENSIVE METABOLIC [id number] 00:00:00 Test Item Value Reference Range Interpretation Comments GLUCOSE (test code = 2217) 103 MG/DL BUN (test code = 2208) 15 MG/DL CREATININE (test code = 2214) 0.77 MG/DL eGFR AMER. (test code 101 ML/MIN/1.73 = 41433) eGFR NON- AMER. (test 87 ML/MIN/1.73 code = 43104) CALC BUN/CREAT (test code = 19 RATIO [...] code = 2821) 0.424 UIU/ML COMPREHENSIVE METABOLIC [id number] 00:00:00 Test Item Value Reference Range Interpretation Comments GLUCOSE (test code = 2217) 103 MG/DL BUN (test code = 2208) 15 MG/DL CREATININE (test code = 2214) 0.77 MG/DL eGFR AMER. (test code 101 ML/MIN/1.73 = 65920) eGFR NON- AMER. (test 87 ML/MIN/1.73 code = 75128) CALC BUN/CREAT (test code = 19 RATIO [...] code = 2821) 0.424 UIU/ML COMPREHENSIVE METABOLIC [id number] 00:00:00 Test Item Value Reference Range Interpretation Comments GLUCOSE (test code = 2217) 103 MG/DL BUN (test code = 2208) 15 MG/DL CREATININE (test code = 2214) 0.77 MG/DL eGFR AMER. (test code 101 ML/MIN/1.73 = 68687) eGFR NON- AMER. (test 87 ML/MIN/1.73 code = 88721) CALC BUN/CREAT (test code = 19 RATIO [...] code = 2219) 24 U/L COMPREHENSIVE METABOLIC [id number] 00:00:00 Test Item Value Reference Range Interpretation Comments GLUCOSE (test code = 2217) 103 MG/DL BUN (test code = 2208) 15 MG/DL CREATININE (test code = 2214) 0.77 MG/DL eGFR AMER. (test code 101 ML/MIN/1.73 = 59097) eGFR NON- AMER. (test 87 ML/MIN/1.73 code = 15131) CALC BUN/CREAT (test code = 19 RATIO [...] CALCULATED T7 (FTI) (test code = 1.37 4190) TSH (test code = 2821) 0.424 UIU/ML THYROID II PROFILE (T3U, T4, T7, TSH)[id number] 00:00:00 Test Item Value Reference Range Interpretation Comments T3 UPTAKE (test code = 2817) 35.1 % T4 (THYROXINE) (test code = 3.9 UG/DL 9) CALCULATED T7 (FTI) (test code = 1.37 0) TSH (test code = 2821) 0.424 UIU/ML CULTURE, [id number] 00:00:00 Test Item Value Reference Range Interpretation Comments CULTURE, URINE (test SPECIMEN NUMBER: code = 95861) [id number] CULTURE, [id number] 00:00:00 Test Item Value Reference Range Interpretation Comments CULTURE, URINE (test SPECIMEN NUMBER: code = 01500) [id number] CULTURE, [id number] 00:00:00 Test Item Value Reference Range Interpretation Comments CULTURE, URINE (test SPECIMEN NUMBER: code = 33054) [id number] CULTURE, [id number] 00:00:00 Test Item Value Reference Range Interpretation Comments CULTURE, URINE (test SPECIMEN NUMBER: code = 13660) [id number] CULTURE, [id number] 00:00:00 Test Item Value Reference Range Interpretation Comments CULTURE, URINE (test SPECIMEN NUMBER: code = 73515) [id number] CULTURE, [id number] 00:00:00 Test Item Value Reference Range Interpretation Comments CULTURE, URINE (test SPECIMEN NUMBER: code = 85424) [id number] CULTURE, [id number] 00:00:00 Test Item Value Reference Range Interpretation Comments CULTURE, URINE (test SPECIMEN NUMBER: code = 48445) [id number] CULTURE, [id number] 00:00:00 Test Item Value Reference Range Interpretation Comments CULTURE, URINE (test SPECIMEN NUMBER: code = 76509) [id number] CULTURE, [id number] 00:00:00 Test Item Value Reference Range Interpretation Comments CULTURE, URINE (test SPECIMEN NUMBER: code = 12487) [id number] CULTURE, [id number] 00:00:00 Test Item Value Reference Range Interpretation Comments CULTURE, URINE (test SPECIMEN NUMBER: code = 95710) [id number] CULTURE, [id number] 00:00:00 Test Item Value Reference Range Interpretation Comments CULTURE, URINE (test SPECIMEN NUMBER: code = 23202) [id number] CULTURE, [id number] 00:00:00 Test Item Value Reference Range Interpretation Comments CULTURE, URINE (test SPECIMEN NUMBER: code = 83862) [id number] CULTURE, [id number] 00:00:00 Test Item Value Reference Range Interpretation Comments CULTURE, URINE (test SPECIMEN NUMBER: code = 04594) [id number] CULTURE, [id number] 00:00:00 Test Item Value Reference Range Interpretation Comments CULTURE, URINE (test SPECIMEN NUMBER: code = 38967) [id number]
[2022-05-04] MEDS ORDERED: NA CHLORIDE 0.9% 1,000 ML ONE (11:07)
[2022-05-04] MEDS ORDERED: ONDANSETRON 4 MG/2 ML VIAL ONE (11:07)
[2022-05-04] MEDS ORDERED: MORPHINE 4 MG/ML SYR ONE (11:07)
[2022-05-04 11:19] LABS: Urine Blood Negative (Negative); Urine Glucose Negative (Negative); Urine Protein Trace (Negative); Urine Specific Gravity 1.015 (1.005-1.030); Urine pH 7.5 (5.0-7.0)
[2022-05-04 11:26] LABS: Absolute Lymphocytes (CBC) 2.4 K/uL (0.7-4.9); Lymphocytes % 33.3 % (15.3-44.8); MCV 92.3 fL (80-100); MPV 6.6 fL (7.6-11.3); RBC Red Blood Cell Count 4.12 M/uL (3.86-4.86)
[2022-05-04 11:43] LABS: Albumin 3.5 g/dL (3.4-5.0); Bilirubin Total 0.2 mg/dL (0.2-1.0); Potassium 4.3 mmol/L (3.5-5.1); Protein, Total 7.7 g/dL (6.4-8.2)
[2022-05-04 12:01] LABS: SARS-COV-2 RT PCR NEGATIVE (NEGATIVE)
--- NOTE | 2022-05-04 12:24 | RAD REPORT ---
EXAM DESCRIPTION: CT - Abdomen Pelvis W Contrast - 05/04/2022 12:09 pm CLINICAL HISTORY: Right-sided abdominal pain, nausea and vomiting COMPARISON: 11/22/2021 TECHNIQUE: Biphasic, helical CT imaging of the abdomen and pelvis was performed following intravenou s administration of 95 mL Isovue-300. Multiplanar reformats were generated and reviewed. All CT scans are performed using dose optimization technique as appropriate and may include automated exposure control or mA/KV adjustment according to patient size. FINDINGS: Motion artifact particularly at the level of the pelvis limits evaluation. Partially visualized bilateral breast implants. No suspicious findings in the lung bases. Well-circumscribed small hepatic hypoattenuating lesions the largest measuring 1.4 centimeter are ximena ssly stable allowing for differences in technique, and could represent small cysts or hemangiomas. Ga llbladder and biliary tree are also without suspicious finding. Symmetric renal function is seen with no hydronephrosis or suspicious renal mass. No dilated bowel loops or bowel wall thickening. No free air, free fluid or inflammatory stranding. N o mass or bulky adenopathy. Small left inguinal fat containing hernia. The urinary bladder is without significant finding. No suspicious bony findings. IMPRESSION: No acute abnormality the abdomen and pelvis. Benign incidental findings as above.
[2022-05-04] MEDS ORDERED: PROMETHAZINE INJ 25 MG/ML AMP ONE (12:32)
[2022-05-04] MEDS ORDERED: HYDROMORPHONE HCL 1 MG/ML INJ ONE (12:32)
--- NOTE | 2022-05-04 14:14 | EDPHYS ---
Physician Documentation [facility] Name: Jaimie Amanda Age: 61 yrs Sex: Female : 1960 Arrival Date: 05/04/2022 Time: 10:42 Bed 7 Private MD: ED Physician Villa Byrd HPI: 05/04 11:24 This 61 yrs old Female presents to ER via Ambulatory with complaints of Abdominal Pain, rn Vomiting. 11:25 The patient presents to the emergency department with nausea, vomiting, diarrhea, rn abdominal pain. Onset: The symptoms/episode began/occurred last night. Possible causes: unknown. The symptoms are aggravated by nothing. The symptoms are alleviated by nothing. Associated signs and symptoms: Pertinent positives: abdominal pain, diarrhea, nausea, vomiting, Pertinent negatives: fever, GI bleeding. Severity of symptoms: At their worst the symptoms were moderate in the emergency department the symptoms are unchanged. The patient has experienced similar episodes in the past. The patient has not recently seen a physician. Pt states this feels different from previous episodes of abd pain.. Historical: - Allergies: 10:56 No Known Allergies; jl7 - Home Meds: 10:56 levothyroxine [Active]; jl7 - PMHx: 10:56 Anxiety; Chronic Abdominal Pain; Hypertensive disorder; Hypothyroidism; low NA; NIDDM; jl7 - PSHx: 10:56 Thyroidectomy; jl7 - Immunization history:: Client reports receiving the 2nd dose of the Covid vaccine. - Social history:: Smoking status: Patient reports the use of cigarette tobacco products. - Family history:: not pertinent. - Hospitalizations: : No recent hospitalization is reported. ROS: 11:25 Constitutional: Negative for fever, chills, and weight loss, Eyes: Negative for injury, rn pain, redness, and discharge, Neck: Negative for injury, pain, and swelling, Cardiovascular: Negative for chest pain, palpitations, and edema, Respiratory: Negative for shortness of breath, cough, wheezing, and pleuritic chest pain, Abdomen/GI: + abd pain/nuasea/vomiting/diarrhea Back: Negative for injury and pain, MS/Extremity: Negative for injury and deformity, Skin: Negative for injury, rash, and discoloration, Neuro: Negative for headache, numbness, tingling, and seizure. Exam: 11:25 Constitutional: This is a well developed, well nourished patient who is awake, alert, rn holding emesis bag, crying Head/Face: Normocephalic, atraumatic. Cardiovascular: Regular rate and rhythm. No pulse deficits. Respiratory: + tachypnea Abdomen/GI: soft, + tender mid abdomen Skin: Warm, dry MS/ Extremity: Pulses equal, no cyanosis. Neuro: Awake and alert, GCS 15 Vital Signs: 10:54 BP 159 / 119; Pulse 74; Resp 24; Temp 98.3; Pulse Ox 100% ; Weight 70.31 kg; Height 5 jl7 ft. 7 in. (170.18 cm); Pain 10/10; 12:40 BP 179 / 82; Pulse 79; Resp 19; Pulse Ox 93% ; jl7 10:54 Body Mass Index 24.28 (70.31 kg, 170.18 cm) jl7 MDM: 10:45 Patient medically screened. rn 14:06 Differential diagnosis: Nonspecific abd pain, gastritis, pancreatitis, appendicitis, rn diverticulitis, viral gastroenteritis, gastroenteritis. Data reviewed: vital signs, nurses notes, lab test result(s), radiologic studies, CT scan, and as a result, I will discharge patient. Consideration of Admission/Observation Escalation of care including admission/observation considered. I considered the following discharge prescriptions or medication management in the emergency department Medications were administered in the Emergency Department. See MAR. Independent interpretation of the following test(s) in the Emergency Department CT Scan: My interpretation is CT abdomen images neg for gross free air or obstruction. Counseling: I had a detailed discussion with the patient and/or guardian regarding: the historical points, exam findings, and any diagnostic results supporting the discharge/admit diagnosis, lab results, radiology results, the need for outpatient follow up, to return to the emergency department if symptoms worsen or persist or if there are any questions or concerns that arise at home. Response to treatment: the patient's symptoms have markedly improved after treatment, and as a result, I will discharge patient. Special discussion: Based on the patient's Hx, exam, and Dx evaluation, there is no indication for emergent surgery or inpatient Tx. It is understood by the patient/guardian that if the Sx's persist or worsen they need to return immediately for re-evaluation. I discussed with the patient/guardian in detail that at this point there is no indication for admission to the hospital. It is understood, however, that if the symptoms persist or worsen the patient needs to return immediately for re-evaluation. ED course: Pt improved, ambulatory, no further vomiting, patient states wants to go home with mother, does not want to stay for further care. . 05/04 10:51 Order name: CBC with Diff rn 05/04 10:51 Order name: CMP rn 05/04 10:51 Order name: Lipase rn 05/04 10:51 Order name: COVID-19/FLU A+B rn 05/04 11:19 Order name: Urine Dipstick-Ancillary; Complete Time: 11:52 EDMS 05/04 11:28 Order name: CBC with Automated Diff; Complete Time: 11:52 EDMS 05/04 10:51 Order name: CT Abd/Pelvis - IV Contrast Only rn 05/04 11:44 Order name: Comprehensive Metabolic Panel; Complete Time: 11:52 EDMS 05/04 11:44 Order name: Lipase; Complete Time: 11:52 EDMS 05/04 12:01 Order name: COVID-19/FLU A+B; Complete Time: 12:24 EDMS 05/04 12:25 Order name: CT EDMS 05/04 10:51 Order name: IV Saline Lock; Complete Time: 11:20 rn 05/04 10:51 Order name: Labs collected and sent; Complete Time: 11:20 rn 05/04 10:51 Order name: Urine Dipstick-Ancillary (obtain specimen); Complete Time: 11:20 rn Administered Medications: 11:15 Drug: NS 0.9% 1000 ml Route: IV; Rate: 1 bolus; Site: right forearm; jl7 12:41 Follow up: Response: No adverse reaction; IV Status: Completed infusion; IV Intake: jl7 1000ml 11:15 Drug: Zofran (Ondansetron) 4 mg Route: IVP; Site: right forearm; jl7 11:30 Follow up: Response: No adverse reaction; Nausea is decreased jl7 11:18 Drug: morphine 4 mg Route: IVP; Infused Over: 4 mins; Site: right forearm; jl7 11:45 Follow up: Response: No adverse reaction; Pain is unchanged, physician notified jl7 12:32 Drug: Phenergan (promethazine) 12.5 mg Route: IVP; Site: right forearm; jl7 13:00 Follow up: Response: No adverse reaction; Nausea is decreased jl7 12:39 Drug: Dilaudid (HYDROmorphone) 1 mg Route: IVP; Site: right forearm; jl7 13:37 Follow up: Response: No adverse reaction; Pain is decreased; Pain is decreased; "it jl7 helped a little more" Disposition Summary: 05/04/22 14:14 Discharge Ordered Location: Home rn Problem: new rn Symptoms: have improved rn Condition: Stable rn Diagnosis - Abdominal pain, unspecified rn - Nausea with vomiting, unspecified rn Followup: rn - With: Private Physician - When: As needed - Reason: Recheck today's complaints, Re-evaluation by your physician Discharge Instructions: - Discharge Summary Sheet rn - Abdominal Pain, Adult rn - Nausea and Vomiting, Adult rn - Pain Without a Known Cause rn Forms: - Medication Reconciliation Form rn - Thank You Letter rn - Antibiotic city attorney - Prescription Opioid Use rn Signatures: Dispatcher [employer] Villa Villanueva MD MD rn Leal, Jahala, RN RN jl7
--- NOTE | 2022-05-04 14:14 | ER ---
Nurse's Notes [facility] Name: Jaimie Amanda Age: 61 yrs Sex: Female : 1960 Arrival Date: 05/04/2022 Time: 10:42 Bed 7 Private MD: Diagnosis: Abdominal pain, unspecified;Nausea with vomiting, unspecified Presentation: 05/04 10:54 Chief complaint: Patient states: Right sided abdominal pain, N/V since last night, pt jl7 crying and moaning during triage; denies diarrhea. Coronavirus screen: At this time, the client does not indicate any symptoms associated with coronavirus-19. Ebola Screen: No symptoms or risks identified at this time. Initial Sepsis Screen: Does the patient meet any 2 criteria? No. Patient's initial sepsis screen is negative. Does the patient have a suspected source of infection? No. Patient's initial sepsis screen is negative. Risk Assessment: Do you want to hurt yourself or someone else? Patient reports no desire to harm self or others. Onset of symptoms was May 03, 2022. 10:54 Method Of Arrival: Ambulatory jl7 10:54 Acuity: ZHEN 3 jl7 Triage Assessment: 10:56 General: Appears in no apparent distress. uncomfortable, unkempt, Behavior is jl7 cooperative, anxious, crying. Pain: Complains of pain in right upper quadrant and right lower quadrant Pain currently is 10 out of 10 on a pain scale. GI: Reports nausea, vomiting. Historical: - Allergies: 10:56 No Known Allergies; jl7 - Home Meds: 10:56 levothyroxine [Active]; jl7 - PMHx: 10:56 Anxiety; Chronic Abdominal Pain; Hypertensive disorder; Hypothyroidism; low NA; NIDDM; jl7 - PSHx: 10:56 Thyroidectomy; jl7 - Immunization history:: Client reports receiving the 2nd dose of the Covid vaccine. - Social history:: Smoking status: Patient reports the use of cigarette tobacco products. - Family history:: not pertinent. - Hospitalizations: : No recent hospitalization is reported. Screenin:00 [facility] ED Fall Risk Assessment (Adult) History of falling in the last 3 months, jl7 including since admission. Abuse screen: Denies threats or abuse. Denies injuries from another. Nutritional screening: No deficits noted. Tuberculosis screening: No symptoms or risk factors identified. Assessment: 12:20 Reassessment: Pt returned from CT, c/o increased nausea and pain, ERD notified, see MAR jl7 for orders. Vital Signs: 10:54 BP 159 / 119; Pulse 74; Resp 24; Temp 98.3; Pulse Ox 100% ; Weight 70.31 kg; Height 5 jl7 ft. 7 in. (170.18 cm); Pain 10/10; 12:40 BP 179 / 82; Pulse 79; Resp 19; Pulse Ox 93% ; jl7 10:54 Body Mass Index 24.28 (70.31 kg, 170.18 cm) jl7 ED Course: 10:42 Patient arrived in ED. mr 10:45 Villa Byrd MD is Attending Physician. rn 10:54 Arianna Jackson RN is Primary Nurse. jl7 10:55 Triage completed. jl7 10:56 Arm band placed on right wrist. jl7 11:00 Patient has correct armband on for positive identification. Pulse ox on. NIBP on. jl7 11:30 Initial lab(s) drawn, by id, sent to lab. Urine collected: clean catch specimen, clear, jl7 COVID swab sent to lab. Inserted saline lock: 22 gauge in right forearm, using aseptic technique. Blood collected. 11:56 COVID-19/FLU A+B Sent. jl7 11:56 CBC with Diff Sent. jl7 11:56 CMP Sent. jl7 11:56 Lipase Sent. jl7 14:05 CT In Process Unspecified. EDMS Administered Medications: 11:15 Drug: NS 0.9% 1000 ml Route: IV; Rate: 1 bolus; Site: right forearm; jl7 12:41 Follow up: Response: No adverse reaction; IV Status: Completed infusion; IV Intake: jl7 1000ml 11:15 Drug: Zofran (Ondansetron) 4 mg Route: IVP; Site: right forearm; jl7 11:30 Follow up: Response: No adverse reaction; Nausea is decreased jl7 11:18 Drug: morphine 4 mg Route: IVP; Infused Over: 4 mins; Site: right forearm; jl7 11:45 Follow up: Response: No adverse reaction; Pain is unchanged, physician notified jl7 12:32 Drug: Phenergan (promethazine) 12.5 mg Route: IVP; Site: right forearm; jl7 13:00 Follow up: Response: No adverse reaction; Nausea is decreased jl7 12:39 Drug: Dilaudid (HYDROmorphone) 1 mg Route: IVP; Site: right forearm; jl7 13:37 Follow up: Response: No adverse reaction; Pain is decreased; Pain is decreased; "it jl7 helped a little more" Medication: 12:40 VIS not applicable for this client. jl7 Intake: 12:41 IV: 1000ml; Total: 1000ml. jl7 Outcome: 14:14 Discharge ordered by . rn 14:24 Patient left the ED. aa5 Signatures: Dispatcher [employer] Radha Leung Roman, MD MD rn Calderon, Audri, RN RN aa5 Arianna Jackson RN RN jl7
== END 2022-05-04 14:24 | disposition home or self-care (01) ==
LOC: ER 10:41
DX: R10.9 Unspecified abdominal pain (principal); R11.2 Nausea with vomiting, unspecified; Z20.822 Contact with and (suspected) exposure to COVID-19; E03.9 Hypothyroidism, unspecified; I10 Essential (primary) hypertension; Z72.0 Tobacco use
CPT/HCPCS: 96361; 85025; 36415; 81003; 83690; 80053; 0240U; 74177; 96375; 96374; 99284; Q9967; J2550; J1170; J7030; J2405

== ENCOUNTER 2022-05-05 08:43 | Emergency (ER) | payer OTHER ==
--- OUTSIDE RECORDS SUMMARY | 2022-05-05 09:00 | XMS REPORT | Continuity of Care Document ---
:1960 Author Organization [facility] t Address [address] [place] [address] Care Team Providers Name Role Phone Sharpless Primary Care Physician MATT SIMPSON Attending Clinician Unavailable MATT SIMPSON Attending Clinician Unavailable Doctor Unassigned, Bala Attending Clinician Unavailable WALLY KRISHNAMURTHY Attending Clinician Unavailable Natacha Brewster Attending Clinician Payers Payer Name Policy Type Policy Number Effective Date Expiration Date Sarina castelan [facility] [id number] 2017 00:00:00 PLUS Problems This patient has [...] ers OPHEN INGREDI 07-27 ity of 00:00: [place] [facility] Propensi Inactiv Reductas ty to e 2-28 e adverse 00:00: Inhibito reaction 00 rs to drug Nitrogly Propensi Active 2017-03 cerin ty to 1-08 adverse 00:00: reaction 00 to drug Social History Social Habit Start Date Stop Date Quantity Comments Source Alcohol intake 2016-05-01 2016-05-01 Current [facility] es 00:00:00 00:00:00 non-drinker of Medical nter alcohol (finding) Sex Assigned At [birth year] [facility] 00:00:00 00:00:00 [facility] Smoking Status Start Date Stop Date Source Current every day smoker 2016-05-01 00:00:00 [facility] Medications Ordered Filled Start Stop [...] 2019-0 No 1mg e 40 mg 6-10 tablet,mlai 00:00: yed release 00 clonidine 2019-0 No [...] [facility] OXcarbazepi 2017-0 Yes 600mg Q.[id number] Take [address] ne 2-23 [id number] [facility] (TR[facility]PTAL) 10:23: 3D mouth 3 Med ical 600 MG 59 (three) Center tablet times daily. PARoxetine 2017-0 Yes 40mg QD Take [address] (PAXIL) 40 2-23 [facility] tablet 10:23: nightly. [address] 2017-0 Yes 600mg Q.03156838 Take [address] ne 2-23 [id number] [facility] (TRILEPTAL) 10:23: 3D mouth 3 Med ical 600 MG 59 (three) Center tablet times daily. PARoxetine 2017-0 Yes 40mg QD Take [address] (PAXIL) 40 2-23 [facility] tablet 10:23: nightly. [address] 2017-0 Yes 600mg Q.94399434 Take [address] ne 2-23 [id number] [facility] (TRILEPTAL) 10:23: 3D mouth 3 Med ical 600 MG 59 (three) Center tablet times daily. PARoxetine 2017-0 Yes 40mg QD Take [address] (PAXIL) 40 2-23 [facility] tablet 10:23: nightly. [address] 2017-0 Yes 600mg Q.55593311 Take [address] ne 2-23 [id number] [facility] (TRILEPTAL) 10:23: 3D mouth 3 Med ical 600 MG 59 (three) Center tablet times daily. PARoxetine 2017-0 Yes 40mg QD Take [address] (PAXIL) 40 2-23 [facility] tablet 10:23: nightly. [address] 2017-0 Yes 600mg Q.71258901 Take [address] ne 2-23 [id number] [facility] (TRILEPTAL) 10:23: 3D mouth 3 Med ical 600 MG 59 (three) Center tablet times daily. PARoxetine 2017-0 Yes 40mg QD Take [address] (PAXIL) 40 2-23 [facility] tablet 10:23: nightly. [address] 2017-0 Yes 600mg Q.79391060 Take [address] ne 2-23 [id number] [facility] (TRILEPTAL) 10:23: 3D mouth 3 Med ical 600 MG 59 (three) Center tablet times daily. PARoxetine 2017-0 Yes 40mg QD Take [address] (PAXIL) 40 2-23 [facility] tablet 10:23: nightly. [address] 2017-0 Yes 600mg Q.28607093 Take [address] ne 2-23 [id number] [facility] (TRILEPTAL) 10:23: 3D mouth 3 Med ical 600 MG 59 (three) Center tablet times daily. PARoxetine 2017-0 Yes 40mg QD Take [address] (PAXIL) 40 2-23 [facility] tablet 10:23: nightly. [address] 2017-0 Yes 600mg Q.17311380 Take [address] ne 2-23 [id number] [facility] (TRILEPTAL) 10:23: 3D mouth 3 Med ical 600 MG 59 (three) Center tablet times daily. PARoxetine 2017-0 Yes 40mg QD Take [address] (PAXIL) 40 2-23 [facility] tablet 10:23: nightly. [address] 2017-0 Yes 600mg Q.27285515 Take [address] ne 2-23 [id number] [facility] (TRILEPTAL) 10:23: 3D mouth 3 Med ical 600 MG 59 (three) Center tablet times daily. PARoxetine 2017-0 Yes 40mg QD Take [address] (PAXIL) 40 2-23 by [facility] tablet 10:23: nightly. [address] OXcarbazepi 2017-0 Yes 600mg Q.63702611 Take [address] ne 2-23 [id number] [facility] (TRILEPTAL) 10:23: 3D mouth 3 Med ical 600 MG 59 (three) Center tablet times daily. PARoxetine 2017-0 Yes 40mg QD Take [address] (PAXIL) 40 2-23 by [facility] tablet 10:23: nightly. [address] OXcarbazepi 2017-0 Yes 600mg Q.77105997 Take [address] ne 2-23 [id number] [facility] (TRILEPTAL) 10:23: 3D mouth 3 Med ical 600 MG 59 (three) Center tablet times daily. OXcarbazepi 2017-0 Yes 600mg Q.39556801 Take [address] ne 2-23 [id number] [facility] (TRILEPTAL) 10:23: 3D mouth 3 Med ical 600 MG 59 (three) Center tablet times daily. PARoxetine 2017-0 Yes 40mg QD Take [address] (PAXIL) 40 2-23 by [facility] tablet 10:23: nightly. Medi [facility]jel[facility] OXcarbazepi 2017-0 Yes 600mg Q.26816154 Take [address] ne 2-23 [id number] [facility] (TRILEPTAL) 10:23: 3D mouth 3 Med ical 600 MG 59 (three) Center tablet times daily. PARoxetine 2017-0 Yes 40mg QD Take [address] (PAXIL) 40 2-23 by [facility] tablet 10:23: nightly. [facility] anjelica [facility] Center OXcarbazepi 2017-0 Yes 600mg Q.13256482 Take [address] ne 2-23 [id number] mg [facility] (TRILEPTAL) 10:23: 3D mouth 3 Med ical 600 MG 59 (three) Center tablet times daily. PARoxetine 2017-0 Yes 40mg QD Take [address] (PAXIL) 40 2-23 by [facility] tablet 10:23: nightly. [facility] anjelica 59 Center PARoxetine 2017-0 Yes 40mg QD Take [address] (PAXIL) 40 2-23 by [facility] tablet 10:23: nightly. [facility] anjelica 59 Center OXcarbazepi 2017-0 Yes 600mg Q.24602707 Take [address] ne 2-23 [id number] mg by [facility] (TRILEPTAL) 10:23: 3D mouth 3 Med ical 600 MG 59 (three) Center tablet times daily. PARoxetine 2017-0 Yes 40mg QD Take [address] (PAXIL) 40 2-23 [facility] tablet 10:23: nightly. Medi [facility]jel[facility] OXcarbazepi 2017-0 Yes 600mg Q.07770141 Take [address] ne 2-23 [id number] mg [facility] (TRILEPTAL) 10:23: 3D mouth 3 Med ical 600 MG 59 (three) Center tablet times daily. PARoxetine 2017-0 Yes 40mg QD Take [address] (PAXIL) 40 2-23 [facility] tablet 10:23: nightly. [facility] [address] [place] OXcarbazepi 2017-0 Yes 600mg Q.39327167 Take [address] ne 2-23 [id number] mg [facility] (TRILEPTAL) 10:23: 3D mouth 3 Med ical 600 MG 59 (three) Center tablet times daily. PARoxetine 2017-0 Yes 40mg QD Take [address] (PAXIL) 40 2-23 by [facility] tablet 10:23: nightly. [facility] [address] [place] OXcarbazepi 2017-0 Yes 600mg Q.95651682 Take [address] ne 2-23 8155152465 [facility] (TRILEPTAL) 10:23: 3D mouth 3 Med ical 600 MG 59 (three) Center tablet times daily. PARoxetine 2017-0 Yes 40mg QD Take [address] (PAXIL) 40 2-23 by [facility] tablet 10:23: nightly. [facility] [address] [place] OXcarbazepi 2017-0 Yes 600mg Q.99834659 Take [address] ne 2-23 [id number] [facility] (TRILEPTAL) 10:23: 3D mouth 3 Med ical 600 MG 59 (three) Center tablet times daily. PARoxetine 2017-0 Yes 40mg QD Take [address] (PAXIL) 40 2-23 by [facility] tablet 10:23: nightly. [facility] [address] [place] OXcarbazepi 2017-0 Yes 600mg Q.60879834 Take [address] ne 2-23 [id number] mg [facility] (TRILEPTAL) 10:23: 3D mouth 3 Med ical 600 MG 59 (three) Center tablet times daily. PARoxetine 2017-0 Yes 40mg QD Take [address] (PAXIL) 40 2-23 by [facility] tablet 10:23: nightly. [facility] [address] [place] OXcarbazepi 2017-0 Yes 600mg Q.61255257 Take [address] ne 2-23 [id number] [facility] (TRILEPTAL) 10:23: 3D mouth 3 Med ical 600 MG 59 (three) Center tablet times daily. PARoxetine 2017-0 Yes 40mg QD Take [address] (PAXIL) 40 2-23 by [facility] tablet 10:23: nightly. [address] OXcarbazepi 2017-0 Yes 600mg Q.25428745 Take [address] ne 2-23 [id number] mg [facility] (TRILEPTAL) 10:23: 3D mouth 3 Med ical 600 MG 59 (three) Center tablet times daily. OXcarbazepi 2017-0 Yes 600mg Q.64060814 Take [address] ne 2-23 [id number] mg [facility] (TRILEPTAL) 10:23: 3D mouth 3 Med ical 600 MG 59 (three) Center tablet times daily. PARoxetine 2017-0 Yes 40mg QD Take [address] (PAXIL) 40 2-23 by [facility] tablet 10:23: nightly. [address] OXcarbazepi 2017-0 Yes 600mg Q.06644927 Take [address] ne 2-23 6328012793 mg [facility] (TRILEPTAL) 10:23: 3D mouth 3 Med ical 600 MG 59 (three) Center tablet times daily. PARoxetine 2017-0 Yes 40mg QD Take [address] (PAXIL) 40 2-23 by [facility] tablet 10:23: nightly. [address] LORazepam 2017-0 Yes 1mg Take 1 [...] Goal Plan of Care Note [code = 08835-1] Goal Plan of Care Note [code = 74032-9] Goal Plan of Care Note [code = 53703-4] Goal Plan of Care Note [code = 79876-5] Goal Plan of Care Note [code = 40963-0] Goal Plan of Care Note [code = 01277-5] Goal Plan of Care Note [code = 75479-9] Goal Plan of Care Note [code = 50720-7] Goal Plan of Care Note [code = 81373-8] Goal Plan of Care Note [code = 58685-1] Goal Plan of Care Note [code = 14034-4] Goal Plan of Care Note [code = 71385-9] Goal Plan of Care Note [code = 61907-3] Goal Plan of Care Note [code = 35888-8] Goal Plan of Care Note [code = 27809-7] Goal Plan of Care Note [code = 89030-9] Goal Plan of Care Note [code = 93545-0] Goal Plan of Care Note [code = 88011-5] Goal Plan of Care Note [code = 17957-5] Goal Plan of Care Note [code = 70316-7] Goal Plan of Care Note [code = 58466-4] Goal Plan of Care Note [code = 44279-7] Goal Plan of Care Note [code = 54983-1] Goal Plan of Care Note [code = 74862-9] Goal Plan of Care Note [code = 91925-7] Goal Plan of Care Note [code = 19954-0] Goal Plan of Care Note [code = 09940-5] Goal Plan of Care Note [code = 29060-0] Goal Plan of Care Note [code = 00464-1] Goal Plan of Care Note [code = 59925-5] Goal Plan of Care Note [code = 76365-5] Goal Plan of Care Note [code = 03678-5] Goal Plan of Care Note [code = 78782-9] Goal Plan of Care Note [code = 77999-4] Goal Plan of Care Note [code = 36990-5] Goal Plan of Care Note [code = 10328-6] Goal Plan of Care Note [code = 84653-9] Goal Plan of Care Note [code = 32532-3] Goal Plan of Care Note [code = 71661-5] Goal Plan of Care Note [code = 55974-1] Goal Plan of Care Note [code = 88404-7] Goal Plan of Care Note [code = 54126-1] Goal Plan of Care Note [code = 25120-0] Goal Plan of Care Note [code = 19086-3] Goal Plan of Care Note [code = 77319-0] Goal Plan of Care Note [code = 59745-6] Goal Plan of Care Note [code = 15151-4] Goal Plan of Care Note [code = 98303-8] Goal Plan of Care Note [code = 63944-0] Goal Plan of Care Note [code = 02842-7] Goal Plan of Care Note [code = 74953-4] Goal Plan of Care Note [code = 51919-6] Goal Plan of Care Note [code = 89320-1] Goal Plan of Care Note [code = 61955-5] Goal Plan of Care Note [code = 62052-2] Goal Plan of Care Note [code = 46474-1] Goal Plan of Care Note [code = 20235-3] Goal Plan of Care Note [code = 49731-2] Goal Plan of Care Note [code = 91449-9] Goal Plan of Care Note [code = 97347-7] Goal Plan of Care Note [code = 77000-7] Goal Plan of Care Note [code = 45845-6] Goal Plan of Care Note [code = 70293-8] Goal Plan of Care Note [code = 15230-5] Goal Plan of Care Note [code = 00158-4] Goal Plan of Care Note [code = 24543-7] Goal Plan of Care Note [code = 10804-5] Goal Plan of Care Note [code = 91316-1] Goal Plan of Care Note [code = 42817-5] Goal Plan of Care Note [code = 98750-1] Goal Plan of Care Note [code = 63303-1] Goal Plan of Care Note [code = 39984-5] Goal Plan of Care Note [code = 96272-4] Goal Plan of Care Note [code = 67705-1] Goal Plan of Care Note [code = 85724-2] Goal Plan of Care Note [code = 59853-8] Goal Plan of Care Note [code = 30698-0] Goal Plan of Care Note [code = 83142-6] Goal Plan of Care Note [code = 38455-0] Goal Plan of Care Note [code = 92942-9] Goal Plan of Care Note [code = 97036-7] Goal Plan of Care Note [code = 36719-1] Goal Plan of Care Note [code = 91734-2] Goal Plan of Care Note [code = 99646-4] Goal Plan of Care Note [code = 98641-8] Goal Plan of Care Note [code = 41180-6] Goal Plan of Care Note [code = 73973-1] Goal Plan of Care Note [code = 93521-4] Goal Plan of Care Note [code = 89365-2] Goal Plan of Care Note [code = 37987-2] Goal Plan of Care Note [code = 09162-1] Goal Plan of Care Note [code = 06627-9] Goal Plan of Care Note [code = 67441-5] Goal Plan of Care Note [code = 08917-2] Goal Plan of Care Note [code = 86357-2] Goal Plan of Care Note [code = 22710-7] Goal Plan of Care Note [code = 27755-2] Goal Plan of Care Note [code = 55341-8] Goal Plan of Care Note [code = 70978-7] Goal Plan of Care Note [code = 69068-6] Goal Plan of Care Note [code = 68814-1] Goal Plan of Care Note [code = 08986-3] Goal Plan of Care Note [code = 84285-9] Goal Plan of Care Note [code = 32976-9] Goal Plan of Care Note [code = 02841-7] Goal Plan of Care Note [code = 90059-7] Goal Plan of Care Note [code = 18780-9] Goal Plan of Care Note [code = 31242-1] Goal Plan of Care Note [code = 44895-0] Goal Plan of Care Note [code = 82748-6] Goal Plan of Care Note [code = 98192-5] Goal Plan of Care Note [code = 24301-9] Goal Plan of Care Note [code = 79984-0] Goal Plan of Care Note [code = 43342-3] Goal Plan of Care Note [code = 52551-8] Goal Plan of Care Note [code = 72157-9] Goal Plan of Care Note [code = 67395-8] Goal Plan of Care Note [code = 62692-6] Goal Plan of Care Note [code = 35783-5] Goal Plan of Care Note [code = 33865-8] Goal Plan of Care Note [code = 16189-6] Goal Plan of Care Note [code = 62633-3] Goal Plan of Care Note [code = 12435-3] Goal Plan of Care Note [code = 51121-7] Goal Plan of Care Note [code = 14569-4] Goal Plan of Care Note [code = 62664-6] Goal Plan of Care Note [code = 69113-2] Goal Plan of Care Note [code = 48604-6] Goal Plan of Care Note [code = 03425-5] Goal Plan of Care Note [code = 10852-7] Goal Plan of Care Note [code = 98876-5] Goal Plan of Care Note [code = 98198-3] Goal Plan of Care Note [code = 71704-9] Goal Plan of Care Note [code = 26119-0] Goal Plan of Care Note [code = 24978-0] Goal Plan of Care Note [code = 58033-9] Goal Plan of Care Note [code = 51343-5] Goal Plan of Care Note [code = 25462-7] Goal Plan of Care Note [code = 88703-1] Goal Plan of Care Note [code = 23921-9] Goal Plan of Care Note [code = 85313-8] Goal Plan of Care Note [code = 89204-2] Goal Plan of Care Note [code = 57981-4] Goal Plan of Care Note [code = 75371-8] Goal Plan of Care Note [code = 09293-4] Goal Plan of Care Note [code = 05479-3] Goal Plan of Care Note [code = 70232-8] Goal Plan of Care Note [code = 57242-9] Goal Plan of Care Note [code = 18078-3] Goal Plan of Care Note [code = 93896-7] Goal Plan of Care Note [code = 90001-0] Goal Plan of Care Note [code = 97176-7] Goal Plan of Care Note [code = 99572-7] Goal Plan of Care Note [code = 26943-9] Goal Plan of Care Note [code = 59260-3] Goal Plan of Care Note [code = 52476-0] Goal Plan of Care Note [code = 93295-9] Goal Plan of Care Note [code = 50265-5] Goal Plan of Care Note [code = 96905-6] Goal Plan of Care Note [code = 95707-8] Goal Plan of Care Note [code = 88794-8] Goal Plan of Care Note [code = 74534-7] Goal Plan of Care Note [code = 11690-4] Goal Plan of Care Note [code = 14717-8] Goal Plan of Care Note [code = 80663-5] Goal Plan of Care Note [code = 26847-8] Goal Plan of Care Note [code = 55602-1] Goal Plan of Care Note [code = 65320-2] Goal Plan of Care Note [code = 12149-7] Goal Plan of Care Note [code = 49086-8] Goal Plan of Care Note [code = 27038-4] Goal Plan of Care Note [code = 12824-4] Goal Plan of Care Note [code = 30741-0] Goal Plan of Care Note [code = 98635-1] Goal Plan of Care Note [code = 14966-7] Goal Plan of Care Note [code = 34398-3] Goal Plan of Care Note [code = 60070-5] Goal Plan of Care Note [code = 90588-7] Goal Plan of Care Note [code = 56517-7] Goal Plan of Care Note [code = 70069-5] Goal Plan of Care Note [code = 90277-5] Goal Plan of Care Note [code = 41106-5] Goal Plan of Care Note [code = 40309-2] Goal Plan of Care Note [code = 02169-5] Goal Plan of Care Note [code = 97567-9] Goal Plan of Care Note [code = 01838-1] Goal Plan of Care Note [code = 11444-8] Goal Plan of Care Note [code = 92101-8] Goal Plan of Care Note [code = 60933-6] Goal Plan of Care Note [code = 99093-4] Goal Plan of Care Note [code = 71209-6] Goal Plan of Care Note [code = 16023-8] Goal Plan of Care Note [code = 87623-6] Goal Plan of Care Note [code = 94147-5] Goal Plan of Care Note [code = 53695-2] Goal Plan of Care Note [code = 75069-9] Goal Plan of Care Note [code = 61432-7] Goal Plan of Care Note [code = 60451-9] Goal Plan of Care Note [code = 74259-2] Goal Plan of Care Note [code = 76241-8] Goal Plan of Care Note [code = 47850-7] Goal Plan of Care Note [code = 90746-3] Goal Plan of Care Note [code = 48313-8] Goal Plan of Care Note [code = 41730-1] Goal Plan of Care Note [code = 29294-6] Goal Plan of Care Note [code = 23783-5] Goal Plan of Care Note [code = 28101-4] Goal Plan of Care Note [code = 81541-3] Encounters Start End Encounter Admission Attending Care Care Encounter Source Date/Time Date/Time Type Type Clinicians Facility Department ID 2021-06-01 Outpatient [facility] [id number] [place] 01:36:29 [id number] [facility] 2022-02-11 2022-02-11 Outpatient SFA SFA [id number] Cristian 09:04:48 09:04:48 1206 F Jerman 2022-02-10 2022-02-10 Outpatient SFA SFA [id number] Cristian 09:29:34 09:29:34 1205 F Jerman 2022-02-10 2022-02-10 Outpatient [id number]- [id number] 6w84t5-6 00:00:00 00:00:00 Visit 4089-4cab 089-4cab-9 -6zg2-g9k bf5-g9s443 726dwlk65 bafa93 2022-01-10 2022-01-10 Outpatient SFA SFA [id number] 022 Cristian 09:16:14 09:16:14 1104 F Jerman 2022-01-10 2022-01-10 Outpatient [id number]- [id number] f2 accaa6-a 00:00:00 00:00:00 Visit aca9-4c83 ca9-4c83-a -x4ma-iu7 7eb-bc13f3 9l8q229g6 f032f9 2021-12-19 2021-12-19 Outpatient SFA SFA [id number] 022 Cristian 16:11:31 16:11:31 1013 F Jerman 2021-12-19 2021-12-19 Outpatient [id number] 00:00:00 00:00:00 Visit h206-102e 770-441f-a -adae-62b amelia-62bace brxst26qa fd81af 2021-09-17 2021-09-17 Outpatient svf4gpta- [id number] aa n3riih-0 00:00:00 00:00:00 Visit 935a-4f50 35a-4f50-b -h39s-o4h 77d-c2ba85 d764162f2 1264a6 2020-08-03 2020-08-03 Outpatient R MATT SIMPSON [facility] [id number] [facility] 10:00:00 10:00:00 MATT SIMPSON [facility] 2020-07-25 2020-07-25 Orders Doctor ABE [id number] 00:00:00 00:00:00 Only Unassigned, BK 350.1.13.10 Bala [facility] 4.2.7.2.686 [id number] 2019-09-26 2019-09-26 Outpatient Bertin KRISHNAMURTHY [facility] [id number] [facility] 16:00:00 16:00:00 [facility] 2018-10-21 2018-10-21 [facility] [id number] 00:00:00 00:00:00 Natacha Nguyen 350.1.13.10 Ade 4.2.7.2.686 [place] [id number] [facility] 204 [facility] Results Test Description Test Time Test Comments Results Result Comments Source TSH, THIRD GENERATION 2021-06-27 05:15:49 Test Item Value Reference Range Interpretation Comme nts TSH, THIRD GENERATION (test code = 2821) 2.080 UIU/ML 0.400-4.100 HEMOGLOBIN [id number] 03:46:00 Test Item Value Reference Range Interpretation Comments HEMOGLOBIN A1c (test 6.6 % 4.2-5.6 H [employer] DIABETES code = 16399) ASSOCIATION IDELINES FOR HGB A1C: PREDIABETES/INC REASED [...] TESTING PER FORMED ATCLINICAL PATH OLOGY LABORATORIES, [facility]. [address] [address] LABORATORY DIRE CTOR: DIANA RUSS M.D. CLIA NUMBER [id number] [facility] [place]. [id number] LIPID [id number] 02:59:52 Test Item Value Reference Range Interpretation [...] MOREINFORMATION , SEE CLIENT ANNOUNCE MENT AT [email or web address] RISK RATIO LDL/HDL 4.02 RATIO <3.22 H (test code = 2238) [id number] 00:00:00 Test Item Value Reference Range Interpretation Comments TSH, THIRD GENERATION (test code 2.080 UIU/ML = 2821) [id number] 00:00:00 Test Item Value Reference Range Interpretation Comments TSH, THIRD GENERATION (test code 2.080 UIU/ML = 2821) [id number] 00:00:00 Test Item Value Reference Range Interpretation Comments TSH, THIRD GENERATION (test code 2.080 UIU/ML = 2821) LIPID [id number] 00:00:00 Test Item Value Reference Range Interpretation Comments CHOLESTEROL (test code = 2210) 292 MG/DL TRIGLYCERIDES (test code = 2232) 184 MG/DL HDL CHOLESTEROL (test code = 2220) 51 MG/DL CALC LDL CHOL (test code = 2237) 205 MG/DL RISK RATIO LDL/HDL (test code = 4.02 RATIO 2238) LIPID [id number] 00:00:00 Test Item Value Reference Range Interpretation Comments CHOLESTEROL (test code = 2210) 292 MG/DL TRIGLYCERIDES (test code = 2232) 184 MG/DL HDL CHOLESTEROL (test code = 2220) 51 MG/DL CALC LDL CHOL (test code = 2237) 205 MG/DL RISK RATIO LDL/HDL (test code = 4.02 RATIO 2238) HEMOGLOBIN [id number] 00:00:00 Test Item Value Reference Range Interpretation Comments HEMOGLOBIN A1c (test code = 98257) 6.6 % HEMOGLOBIN [id number] 00:00:00 Test Item Value Reference Range Interpretation Comments HEMOGLOBIN A1c (test code = 96516) 6.6 % HEMOGLOBIN [id number] 00:00:00 Test Item Value Reference Range Interpretation Comments HEMOGLOBIN A1c (test code = 77867) 6.6 % [id number] 00:00:00 Test Item Value Reference Range Interpretation Comments TSH, THIRD GENERATION (test code 2.080 UIU/ML = 2821) [id number] 00:00:00 Test Item Value Reference Range Interpretation Comments TSH, THIRD GENERATION (test code 2.080 UIU/ML = 2821) [id number] 00:00:00 Test Item Value Reference Range Interpretation Comments TSH, THIRD GENERATION (test code 2.080 UIU/ML = 2821) LIPID [id number] 00:00:00 Test Item Value Reference Range Interpretation Comments CHOLESTEROL (test code = 2210) 292 MG/DL TRIGLYCERIDES (test code = 2232) 184 MG/DL HDL CHOLESTEROL (test code = 2220) 51 MG/DL CALC LDL CHOL (test code = 2237) 205 MG/DL RISK RATIO LDL/HDL (test code = 4.02 RATIO 2238) LIPID [id number] 00:00:00 Test Item Value Reference Range Interpretation Comments CHOLESTEROL (test code = 2210) 292 MG/DL TRIGLYCERIDES (test code = 2232) 184 MG/DL HDL CHOLESTEROL (test code = 2220) 51 MG/DL CALC LDL CHOL (test code = 2237) 205 MG/DL RISK RATIO LDL/HDL (test code = 4.02 RATIO 2238) HEMOGLOBIN [id number] 00:00:00 Test Item Value Reference Range Interpretation Comments HEMOGLOBIN A1c (test code = 03315) 6.6 % HEMOGLOBIN [id number] 00:00:00 Test Item Value Reference Range Interpretation Comments HEMOGLOBIN A1c (test code = 66698) 6.6 % HEMOGLOBIN [id number] 00:00:00 Test Item Value Reference Range Interpretation Comments HEMOGLOBIN A1c (test code = 14494) 6.6 % [id number] 00:00:00 Test Item Value Reference Range Interpretation Comments TSH, THIRD GENERATION (test code 2.080 UIU/ML = 2821) [id number] 00:00:00 Test Item Value Reference Range Interpretation Comments TSH, THIRD GENERATION (test code 2.080 UIU/ML = 2821) LIPID [id number] 00:00:00 Test Item Value Reference Range Interpretation Comments CHOLESTEROL (test code = 2210) 292 MG/DL TRIGLYCERIDES (test code = 2232) 184 MG/DL HDL CHOLESTEROL (test code = 2220) 51 MG/DL CALC LDL CHOL (test code = 2237) 205 MG/DL RISK RATIO LDL/HDL (test code = 4.02 RATIO 2238) HEMOGLOBIN [id number] 00:00:00 Test Item Value Reference Range Interpretation Comments HEMOGLOBIN A1c (test code = 14414) 6.6 % HEMOGLOBIN [id number] 00:00:00 Test Item Value Reference Range Interpretation Comments HEMOGLOBIN A1c (test code = 86552) 6.6 % [id number] 00:00:00 Test Item Value Reference Range Interpretation Comments TSH, THIRD GENERATION (test code 2.080 UIU/ML = 2821) [id number] 00:00:00 Test Item Value Reference Range Interpretation Comments TSH, THIRD GENERATION (test code 2.080 UIU/ML = 2821) [id number] 00:00:00 Test Item Value Reference Range Interpretation Comments TSH, THIRD GENERATION (test code 2.080 UIU/ML = 2821) LIPID [id number] 00:00:00 Test Item Value Reference Range Interpretation Comments CHOLESTEROL (test code = 2210) 292 MG/DL TRIGLYCERIDES (test code = 2232) 184 MG/DL HDL CHOLESTEROL (test code = 2220) 51 MG/DL CALC LDL CHOL (test code = 2237) 205 MG/DL RISK RATIO LDL/HDL (test code = 4.02 RATIO 2238) LIPID [id number] 00:00:00 Test Item Value Reference Range Interpretation Comments CHOLESTEROL (test code = 2210) 292 MG/DL TRIGLYCERIDES (test code = 2232) 184 MG/DL HDL CHOLESTEROL (test code = 2220) 51 MG/DL CALC LDL CHOL (test code = 2237) 205 MG/DL RISK RATIO LDL/HDL (test code = 4.02 RATIO 2238) HEMOGLOBIN [id number] 00:00:00 Test Item Value Reference Range Interpretation Comments HEMOGLOBIN A1c (test code = 22856) 6.6 % HEMOGLOBIN [id number] 00:00:00 Test Item Value Reference Range Interpretation Comments HEMOGLOBIN A1c (test code = 21502) 6.6 % HEMOGLOBIN [id number] 00:00:00 Test Item Value Reference Range Interpretation Comments HEMOGLOBIN A1c (test code = 68691) 6.6 % HEMOGLOBIN [id number] 00:00:00 Test Item Value Reference Range Interpretation Comments HEMOGLOBIN A1c (test code = 83312) 6.8 % HEMOGLOBIN [id number] 00:00:00 Test Item Value Reference Range Interpretation Comments HEMOGLOBIN A1c (test code = 30639) 6.8 % HEMOGLOBIN [id number] 00:00:00 Test Item Value Reference Range Interpretation Comments HEMOGLOBIN A1c (test code = 61599) 6.8 % LIPID [id number] 00:00:00 Test Item Value Reference Range Interpretation Comments CHOLESTEROL (test code = 2210) 303 MG/DL TRIGLYCERIDES (test code = 2232) 191 MG/DL HDL CHOLESTEROL (test code = 2220) 61 MG/DL CALC LDL CHOL (test code = 2237) 205 MG/DL RISK RATIO LDL/HDL (test code = 3.36 RATIO 2238) LIPID [id number] 00:00:00 Test Item Value Reference Range Interpretation Comments CHOLESTEROL (test code = 2210) 303 MG/DL TRIGLYCERIDES (test code = 2232) 191 MG/DL HDL CHOLESTEROL (test code = 2220) 61 MG/DL CALC LDL CHOL (test code = 2237) 205 MG/DL RISK RATIO LDL/HDL (test code = 3.36 RATIO 2238) [id number] 00:00:00 Test Item Value Reference Range Interpretation Comments TSH, THIRD GENERATION (test code 0.769 UIU/ML = 2821) [id number] 00:00:00 Test Item Value Reference Range Interpretation Comments TSH, THIRD GENERATION (test code 0.769 UIU/ML = 2821) [id number] 00:00:00 Test Item Value Reference Range Interpretation Comments TSH, THIRD GENERATION (test code 0.769 UIU/ML = 2821) COMPREHENSIVE METABOLIC [id number] 00:00:00 Test Item Value Reference Range Interpretation Comments GLUCOSE (test code = 2217) 131 MG/DL BUN (test code = 2208) 13 MG/DL CREATININE (test code = 2214) 0.65 MG/DL eGFR AMER. (test code 113 ML/MIN/1.73 = 61606) eGFR NON- AMER. (test 97 ML/MIN/1.73 code = 33213) CALC BUN/CREAT (test code = 20 RATIO [...] code = 2219) 23 U/L COMPREHENSIVE METABOLIC [id number] 00:00:00 Test Item Value Reference Range Interpretation Comments GLUCOSE (test code = 2217) 131 MG/DL BUN (test code = 2208) 13 MG/DL CREATININE (test code = 2214) 0.65 MG/DL eGFR AMER. (test code 113 ML/MIN/1.73 = 90548) eGFR NON- AMER. (test 97 ML/MIN/1.73 code = 08407) CALC BUN/CREAT (test code = 20 RATIO [...] (test code = 2219) 23 U/L HEMOGLOBIN [id number] 00:00:00 Test Item Value Reference Range Interpretation Comments HEMOGLOBIN A1c (test code = 25069) 6.8 % HEMOGLOBIN [id number] 00:00:00 Test Item Value Reference Range Interpretation Comments HEMOGLOBIN A1c (test code = 73321) 6.8 % HEMOGLOBIN [id number] 00:00:00 Test Item Value Reference Range Interpretation Comments HEMOGLOBIN A1c (test code = 45634) 6.8 % LIPID [id number] 00:00:00 Test Item Value Reference Range Interpretation Comments CHOLESTEROL (test code = 2210) 303 MG/DL TRIGLYCERIDES (test code = 2232) 191 MG/DL HDL CHOLESTEROL (test code = 2220) 61 MG/DL CALC LDL CHOL (test code = 2237) 205 MG/DL RISK RATIO LDL/HDL (test code = 3.36 RATIO 2238) LIPID [id number] 00:00:00 Test Item Value Reference Range Interpretation Comments CHOLESTEROL (test code = 2210) 303 MG/DL TRIGLYCERIDES (test code = 2232) 191 MG/DL HDL CHOLESTEROL (test code = 2220) 61 MG/DL CALC LDL CHOL (test code = 2237) 205 MG/DL RISK RATIO LDL/HDL (test code = 3.36 RATIO 2238) [id number] 00:00:00 Test Item Value Reference Range Interpretation Comments TSH, THIRD GENERATION (test code 0.769 UIU/ML = 2821) [id number] 00:00:00 Test Item Value Reference Range Interpretation Comments TSH, THIRD GENERATION (test code 0.769 UIU/ML = 2821) [id number] 00:00:00 Test Item Value Reference Range Interpretation Comments TSH, THIRD GENERATION (test code 0.769 UIU/ML = 2821) COMPREHENSIVE METABOLIC [id number] 00:00:00 Test Item Value Reference Range Interpretation Comments GLUCOSE (test code = 2217) 131 MG/DL BUN (test code = 2208) 13 MG/DL CREATININE (test code = 2214) 0.65 MG/DL eGFR AMER. (test code 113 ML/MIN/1.73 = 28054) eGFR NON- AMER. (test 97 ML/MIN/1.73 code = 13708) CALC BUN/CREAT (test code = 20 RATIO [...] code = 2219) 23 U/L COMPREHENSIVE METABOLIC [id number] 00:00:00 Test Item Value Reference Range Interpretation Comments GLUCOSE (test code = 2217) 131 MG/DL BUN (test code = 2208) 13 MG/DL CREATININE (test code = 2214) 0.65 MG/DL eGFR AMER. (test code 113 ML/MIN/1.73 = 81057) eGFR NON- AMER. (test 97 ML/MIN/1.73 code = 78946) CALC BUN/CREAT (test code = 20 RATIO [...] ALKALINE PHOSPHATASE (test 139 U/L code = 220) AST (test code = 2218) 17 U/L ALT (test code = 2219) 23 U/L HEMOGLOBIN [id number] 00:00:00 Test Item Value Reference Range Interpretation Comments HEMOGLOBIN A1c (test code = 66271) 6.8 % HEMOGLOBIN [id number] 00:00:00 Test Item Value Reference Range Interpretation Comments HEMOGLOBIN A1c (test code = 39424) 6.8 % LIPID [id number] 00:00:00 Test Item Value Reference Range Interpretation Comments CHOLESTEROL (test code = 2210) 303 MG/DL TRIGLYCERIDES (test code = 2232) 191 MG/DL HDL CHOLESTEROL (test code = 2220) 61 MG/DL CALC LDL CHOL (test code = 2237) 205 MG/DL RISK RATIO LDL/HDL (test code = 3.36 RATIO 2238) [id number] 00:00:00 Test Item Value Reference Range Interpretation Comments TSH, THIRD GENERATION (test code 0.769 UIU/ML = 2821) [id number] 00:00:00 Test Item Value Reference Range Interpretation Comments TSH, THIRD GENERATION (test code 0.769 UIU/ML = 2821) COMPREHENSIVE METABOLIC [id number] 00:00:00 Test Item Value Reference Range Interpretation Comments GLUCOSE (test code = 2217) 131 MG/DL BUN (test code = 2208) 13 MG/DL CREATININE (test code = 2214) 0.65 MG/DL eGFR AMER. (test code 113 ML/MIN/1.73 = 06184) eGFR NON- AMER. (test 97 ML/MIN/1.73 code = 07693) CALC BUN/CREAT (test code = 20 RATIO [...] (test code = 2219) 23 U/L HEMOGLOBIN [id number] 00:00:00 Test Item Value Reference Range Interpretation Comments HEMOGLOBIN A1c (test code = 58181) 6.8 % HEMOGLOBIN [id number] 00:00:00 Test Item Value Reference Range Interpretation Comments HEMOGLOBIN A1c (test code = 58384) 6.8 % HEMOGLOBIN [id number] 00:00:00 Test Item Value Reference Range Interpretation Comments HEMOGLOBIN A1c (test code = 44071) 6.8 % LIPID [id number] 00:00:00 Test Item Value Reference Range Interpretation Comments CHOLESTEROL (test code = 2210) 303 MG/DL TRIGLYCERIDES (test code = 2232) 191 MG/DL HDL CHOLESTEROL (test code = 2220) 61 MG/DL CALC LDL CHOL (test code = 2237) 205 MG/DL RISK RATIO LDL/HDL (test code = 3.36 RATIO 2238) LIPID [id number] 00:00:00 Test Item Value Reference Range Interpretation Comments CHOLESTEROL (test code = 2210) 303 MG/DL TRIGLYCERIDES (test code = 2232) 191 MG/DL HDL CHOLESTEROL (test code = 2220) 61 MG/DL CALC LDL CHOL (test code = 2237) 205 MG/DL RISK RATIO LDL/HDL (test code = 3.36 RATIO 2238) [id number] 00:00:00 Test Item Value Reference Range Interpretation Comments TSH, THIRD GENERATION (test code 0.769 UIU/ML = 2821) [id number] 00:00:00 Test Item Value Reference Range Interpretation Comments TSH, THIRD GENERATION (test code 0.769 UIU/ML = 2821) [id number] 00:00:00 Test Item Value Reference Range Interpretation Comments TSH, THIRD GENERATION (test code 0.769 UIU/ML = 2821) COMPREHENSIVE METABOLIC [id number] 00:00:00 Test Item Value Reference Range Interpretation Comments GLUCOSE (test code = 2217) 131 MG/DL BUN (test code = 2208) 13 MG/DL CREATININE (test code = 2214) 0.65 MG/DL eGFR AMER. (test code 113 ML/MIN/1.73 = 32558) eGFR NON- AMER. (test 97 ML/MIN/1.73 code = 86272) CALC BUN/CREAT (test code = 20 RATIO [...] code = 2219) 23 U/L COMPREHENSIVE METABOLIC [id number] 00:00:00 Test Item Value Reference Range Interpretation Comments GLUCOSE (test code = 2217) 131 MG/DL BUN (test code = 2208) 13 MG/DL CREATININE (test code = 2214) 0.65 MG/DL eGFR AMER. (test code 113 ML/MIN/1.73 = 07444) eGFR NON- AMER. (test 97 ML/MIN/1.73 code = 16478) CALC BUN/CREAT (test code = 20 RATIO [...] (test code = 2219) 23 U/L HEMOGLOBIN [id number] 00:00:00 Test Item Value Reference Range Interpretation Comments HEMOGLOBIN A1c (test code = 60310) 6.6 % HEMOGLOBIN [id number] 00:00:00 Test Item Value Reference Range Interpretation Comments HEMOGLOBIN A1c (test code = 18332) 6.6 % HEMOGLOBIN [id number] 00:00:00 Test Item Value Reference Range Interpretation Comments HEMOGLOBIN A1c (test code = 12660) 6.6 % LIPID [id number] 00:00:00 Test Item Value Reference Range Interpretation Comments CHOLESTEROL (test code = 2210) 261 MG/DL TRIGLYCERIDES (test code = 2232) 159 MG/DL HDL CHOLESTEROL (test code = 2220) 82 MG/DL CALC LDL CHOL (test code = 2237) 150 MG/DL RISK RATIO LDL/HDL (test code = 1.83 RATIO 2238) LIPID [id number] 00:00:00 Test Item Value Reference Range Interpretation Comments CHOLESTEROL (test code = 2210) 261 MG/DL TRIGLYCERIDES (test code = 2232) 159 MG/DL HDL CHOLESTEROL (test code = 2220) 82 MG/DL CALC LDL CHOL (test code = 2237) 150 MG/DL RISK RATIO LDL/HDL (test code = 1.83 RATIO 2238) COMPREHENSIVE METABOLIC [id number] 00:00:00 Test Item Value Reference Range Interpretation Comments GLUCOSE (test code = 2217) 144 MG/DL BUN (test code = 2208) 15 MG/DL CREATININE (test code = 2214) 0.85 MG/DL eGFR AMER. (test code 87 ML/MIN/1.73 = 48567) eGFR NON- AMER. (test 75 ML/MIN/1.73 code = 49143) CALC BUN/CREAT (test code = 18 RATIO [...] code = 2219) 50 U/L COMPREHENSIVE METABOLIC [id number] 00:00:00 Test Item Value Reference Range Interpretation Comments GLUCOSE (test code = 2217) 144 MG/DL BUN (test code = 2208) 15 MG/DL CREATININE (test code = 2214) 0.85 MG/DL eGFR AMER. (test code 87 ML/MIN/1.73 = 60830) eGFR NON- AMER. (test 75 ML/MIN/1.73 code = 48854) CALC BUN/CREAT (test code = 18 RATIO [...] THYROX. BIND. CAPAC. (test code 1.1 = 16192) T4 (THYROXINE) (test code = 4.3 UG/DL 2819) CORRECTED T4 (FTI) (test code = 3.9 UG/DL 2820) TSH, THIRD GENERATION (test 18.900 UIU/ML code = 2821) THYROID II PROFILE (T3U, T4, T7, TSH)2020-05-23 00:00:00 Test Item Value Reference Range Interpretation Comments T-UPTAKE (test code = 2817) 30.2 % THYROX. BIND. CAPAC. (test code 1.1 = 39829) T4 (THYROXINE) (test code = 4.3 UG/DL 2819) CORRECTED T4 (FTI) (test code = 3.9 UG/DL 2820) TSH, THIRD GENERATION (test 18.900 UIU/ML code = 2821) HEMOGLOBIN [id number] 00:00:00 Test Item Value Reference Range Interpretation Comments HEMOGLOBIN A1c (test code = 38787) 6.6 % HEMOGLOBIN [id number] 00:00:00 Test Item Value Reference Range Interpretation Comments HEMOGLOBIN A1c (test code = 33533) 6.6 % HEMOGLOBIN [id number] 00:00:00 Test Item Value Reference Range Interpretation Comments HEMOGLOBIN A1c (test code = 29801) 6.6 % LIPID [id number] 00:00:00 Test Item Value Reference Range Interpretation Comments CHOLESTEROL (test code = 2210) 261 MG/DL TRIGLYCERIDES (test code = 2232) 159 MG/DL HDL CHOLESTEROL (test code = 2220) 82 MG/DL CALC LDL CHOL (test code = 2237) 150 MG/DL RISK RATIO LDL/HDL (test code = 1.83 RATIO 2238) LIPID [id number] 00:00:00 Test Item Value Reference Range Interpretation Comments CHOLESTEROL (test code = 2210) 261 MG/DL TRIGLYCERIDES (test code = 2232) 159 MG/DL HDL CHOLESTEROL (test code = 2220) 82 MG/DL CALC LDL CHOL (test code = 2237) 150 MG/DL RISK RATIO LDL/HDL (test code = 1.83 RATIO 2238) COMPREHENSIVE METABOLIC [id number] 00:00:00 Test Item Value Reference Range Interpretation Comments GLUCOSE (test code = 2217) 144 MG/DL BUN (test code = 2208) 15 MG/DL CREATININE (test code = 2214) 0.85 MG/DL eGFR AMER. (test code 87 ML/MIN/1.73 = 25933) eGFR NON- AMER. (test 75 ML/MIN/1.73 code = 56152) CALC BUN/CREAT (test code = 18 RATIO [...] code = 2219) 50 U/L COMPREHENSIVE METABOLIC [id number] 00:00:00 Test Item Value Reference Range Interpretation Comments GLUCOSE (test code = 2217) 144 MG/DL BUN (test code = 2208) 15 MG/DL CREATININE (test code = 2214) 0.85 MG/DL eGFR AMER. (test code 87 ML/MIN/1.73 = 81698) eGFR NON- AMER. (test 75 ML/MIN/1.73 code = 89061) CALC BUN/CREAT (test code = 18 RATIO [...] THYROX. BIND. CAPAC. (test code 1.1 = 11760) T4 (THYROXINE) (test code = 4.3 UG/DL 2819) CORRECTED T4 (FTI) (test code = 3.9 UG/DL 2820) TSH, THIRD GENERATION (test 18.900 UIU/ML code = 2821) THYROID II PROFILE (T3U, T4, T7, TSH)2020-05-23 00:00:00 Test Item Value Reference Range Interpretation Comments T-UPTAKE (test code = 2816) 30.2 % THYROX. BIND. CAPAC. (test code 1.1 = 10434) T4 (THYROXINE) (test code = 4.3 UG/DL 2819) CORRECTED T4 (FTI) (test code = 3.9 UG/DL 2820) TSH, THIRD GENERATION (test 18.900 UIU/ML code = 2821) HEMOGLOBIN [id number] 00:00:00 Test Item Value Reference Range Interpretation Comments HEMOGLOBIN A1c (test code = 14844) 6.6 % HEMOGLOBIN [id number] 00:00:00 Test Item Value Reference Range Interpretation Comments HEMOGLOBIN A1c (test code = 41137) 6.6 % LIPID [id number] 00:00:00 Test Item Value Reference Range Interpretation Comments CHOLESTEROL (test code = 2210) 261 MG/DL TRIGLYCERIDES (test code = 2232) 159 MG/DL HDL CHOLESTEROL (test code = 2220) 82 MG/DL CALC LDL CHOL (test code = 2237) 150 MG/DL RISK RATIO LDL/HDL (test code = 1.83 RATIO 2238) COMPREHENSIVE METABOLIC [id number] 00:00:00 Test Item Value Reference Range Interpretation Comments GLUCOSE (test code = 2217) 144 MG/DL BUN (test code = 2208) 15 MG/DL CREATININE (test code = 2214) 0.85 MG/DL eGFR AMER. (test code 87 ML/MIN/1.73 = 34995) eGFR NON- AMER. (test 75 ML/MIN/1.73 code = 92445) CALC BUN/CREAT (test code = 18 RATIO [...] THYROX. BIND. CAPAC. (test code 1.1 = 65614) T4 (THYROXINE) (test code = 4.3 UG/DL 2819) CORRECTED T4 (FTI) (test code = 3.9 UG/DL 2820) TSH, THIRD GENERATION (test 18.900 UIU/ML code = 2821) HEMOGLOBIN [id number] 00:00:00 Test Item Value Reference Range Interpretation Comments HEMOGLOBIN A1c (test code = 87375) 6.6 % HEMOGLOBIN [id number] 00:00:00 Test Item Value Reference Range Interpretation Comments HEMOGLOBIN A1c (test code = 71566) 6.6 % HEMOGLOBIN [id number] 00:00:00 Test Item Value Reference Range Interpretation Comments HEMOGLOBIN A1c (test code = 14666) 6.6 % LIPID [id number] 00:00:00 Test Item Value Reference Range Interpretation Comments CHOLESTEROL (test code = 2210) 261 MG/DL TRIGLYCERIDES (test code = 2232) 159 MG/DL HDL CHOLESTEROL (test code = 2220) 82 MG/DL CALC LDL CHOL (test code = 2237) 150 MG/DL RISK RATIO LDL/HDL (test code = 1.83 RATIO 2238) LIPID [id number] 00:00:00 Test Item Value Reference Range Interpretation Comments CHOLESTEROL (test code = 2210) 261 MG/DL TRIGLYCERIDES (test code = 2232) 159 MG/DL HDL CHOLESTEROL (test code = 2220) 82 MG/DL CALC LDL CHOL (test code = 2237) 150 MG/DL RISK RATIO LDL/HDL (test code = 1.83 RATIO 2238) COMPREHENSIVE METABOLIC [id number] 00:00:00 Test Item Value Reference Range Interpretation Comments GLUCOSE (test code = 2217) 144 MG/DL BUN (test code = 2208) 15 MG/DL CREATININE (test code = 2214) 0.85 MG/DL eGFR AMER. (test code 87 ML/MIN/1.73 = 35344) eGFR NON- AMER. (test 75 ML/MIN/1.73 code = 60399) CALC BUN/CREAT (test code = 18 RATIO [...] code = 2219) 50 U/L COMPREHENSIVE METABOLIC [id number] 00:00:00 Test Item Value Reference Range Interpretation Comments GLUCOSE (test code = 2217) 144 MG/DL BUN (test code = 2208) 15 MG/DL CREATININE (test code = 2214) 0.85 MG/DL eGFR AMER. (test code 87 ML/MIN/1.73 = 77278) eGFR NON- AMER. (test 75 ML/MIN/1.73 code = 54263) CALC BUN/CREAT (test code = 18 RATIO [...] THYROX. BIND. CAPAC. (test code 1.1 = 35400) T4 (THYROXINE) (test code = 4.3 UG/DL 281) CORRECTED T4 (FTI) (test code = 3.9 UG/DL 2820) TSH, THIRD GENERATION (test 18.900 UIU/ML code = 2821) THYROID II PROFILE (T3U, T4, T7, TSH)2020-05-23 00:00:00 Test Item Value Reference Range Interpretation Comments T-UPTAKE (test code = 2816) 30.2 % THYROX. BIND. CAPAC. (test code 1.1 = 34729) T4 (THYROXINE) (test code = 4.3 UG/DL 281) CORRECTED T4 (FTI) (test code = 3.9 UG/DL 2820) TSH, THIRD GENERATION (test 18.900 UIU/ML code = 2821) HEMOGLOBIN [id number] 00:00:00 Test Item Value Reference Range Interpretation Comments HEMOGLOBIN A1c (test code = 57540) 6.7 % HEMOGLOBIN [id number] 00:00:00 Test Item Value Reference Range Interpretation Comments HEMOGLOBIN A1c (test code = 45981) 6.7 % HEMOGLOBIN [id number] 00:00:00 Test Item Value Reference Range Interpretation Comments HEMOGLOBIN A1c (test code = 38815) 6.7 % LIPID [id number] 00:00:00 Test Item Value Reference Range Interpretation Comments CHOLESTEROL (test code = 2210) 267 MG/DL TRIGLYCERIDES (test code = 2232) 137 MG/DL HDL CHOLESTEROL (test code = 2220) 48 MG/DL CALC LDL CHOL (test code = 2237) 192 MG/DL RISK RATIO LDL/HDL (test code = 4.00 RATIO 2238) LIPID [id number] 00:00:00 Test Item Value Reference Range Interpretation Comments CHOLESTEROL (test code = 2210) 267 MG/DL TRIGLYCERIDES (test code = 2232) 137 MG/DL HDL CHOLESTEROL (test code = 2220) 48 MG/DL CALC LDL CHOL (test code = 2237) 192 MG/DL RISK RATIO LDL/HDL (test code = 4.00 RATIO 2238) COMPREHENSIVE METABOLIC [id number] 00:00:00 Test Item Value Reference Range Interpretation Comments GLUCOSE (test code = 2217) 155 MG/DL BUN (test code = 2208) 14 MG/DL CREATININE (test code = 2214) 0.52 MG/DL eGFR AMER. (test code 122 ML/MIN/1.73 = 29576) eGFR NON- AMER. (test 105 ML/MIN/1.73 code = 82761) CALC BUN/CREAT (test code = 27 RATIO [...] code = 2219) 27 U/L COMPREHENSIVE METABOLIC [id number] 00:00:00 Test Item Value Reference Range Interpretation Comments GLUCOSE (test code = 2217) 155 MG/DL BUN (test code = 2208) 14 MG/DL CREATININE (test code = 2214) 0.52 MG/DL eGFR AMER. (test code 122 ML/MIN/1.73 = 22586) eGFR NON- AMER. (test 105 ML/MIN/1.73 code = 05593) CALC BUN/CREAT (test code = 27 RATIO [...] THYROX. BIND. CAPAC. (test code 1.0 = 71071) T4 (THYROXINE) (test code = 4.7 UG/DL 2819) CORRECTED T4 (FTI) (test code = 4.7 UG/DL 2820) TSH, THIRD GENERATION (test code 0.201 UIU/ML = 2821) THYROID II PROFILE (T3U, T4, T7, TSH)2019 00:00:00 Test Item Value Reference Range Interpretation Comments T-UPTAKE (test code = 2817) 33.1 % THYROX. BIND. CAPAC. (test code 1.0 = 92680) T4 (THYROXINE) (test code = 4.7 UG/DL 2819) CORRECTED T4 (FTI) (test code = 4.7 UG/DL 2820) TSH, THIRD GENERATION (test code 0.201 UIU/ML = 2821) HEMOGLOBIN [id number] 00:00:00 Test Item Value Reference Range Interpretation Comments HEMOGLOBIN A1c (test code = 18585) 6.7 % HEMOGLOBIN [id number] 00:00:00 Test Item Value Reference Range Interpretation Comments HEMOGLOBIN A1c (test code = 50144) 6.7 % HEMOGLOBIN [id number] 00:00:00 Test Item Value Reference Range Interpretation Comments HEMOGLOBIN A1c (test code = 67846) 6.7 % LIPID [id number] 00:00:00 Test Item Value Reference Range Interpretation Comments CHOLESTEROL (test code = 2210) 267 MG/DL TRIGLYCERIDES (test code = 2232) 137 MG/DL HDL CHOLESTEROL (test code = 2220) 48 MG/DL CALC LDL CHOL (test code = 2237) 192 MG/DL RISK RATIO LDL/HDL (test code = 4.00 RATIO 2238) LIPID [id number] 00:00:00 Test Item Value Reference Range Interpretation Comments CHOLESTEROL (test code = 2210) 267 MG/DL TRIGLYCERIDES (test code = 2232) 137 MG/DL HDL CHOLESTEROL (test code = 2220) 48 MG/DL CALC LDL CHOL (test code = 2237) 192 MG/DL RISK RATIO LDL/HDL (test code = 4.00 RATIO 2238) COMPREHENSIVE METABOLIC [id number] 00:00:00 Test Item Value Reference Range Interpretation Comments GLUCOSE (test code = 2217) 155 MG/DL BUN (test code = 2208) 14 MG/DL CREATININE (test code = 2214) 0.52 MG/DL eGFR AMER. (test code 122 ML/MIN/1.73 = 18669) eGFR NON- AMER. (test 105 ML/MIN/1.73 code = 21548) CALC BUN/CREAT (test code = 27 RATIO [...] code = 2219) 27 U/L COMPREHENSIVE METABOLIC [id number] 00:00:00 Test Item Value Reference Range Interpretation Comments GLUCOSE (test code = 2217) 155 MG/DL BUN (test code = 2208) 14 MG/DL CREATININE (test code = 2214) 0.52 MG/DL eGFR AMER. (test code 122 ML/MIN/1.73 = 52901) eGFR NON- AMER. (test 105 ML/MIN/1.73 code = 27803) CALC BUN/CREAT (test code = 27 RATIO [...] THYROX. BIND. CAPAC. (test code 1.0 = 46959) T4 (THYROXINE) (test code = 4.7 UG/DL 2819) CORRECTED T4 (FTI) (test code = 4.7 UG/DL 2820) TSH, THIRD GENERATION (test code 0.201 UIU/ML = 2821) THYROID II PROFILE (T3U, T4, T7, TSH)2019 00:00:00 Test Item Value Reference Range Interpretation Comments T-UPTAKE (test code = 2817) 33.1 % THYROX. BIND. CAPAC. (test code 1.0 = 83995) T4 (THYROXINE) (test code = 4.7 UG/DL 2819) CORRECTED T4 (FTI) (test code = 4.7 UG/DL 2820) TSH, THIRD GENERATION (test code 0.201 UIU/ML = 2821) HEMOGLOBIN [id number] 00:00:00 Test Item Value Reference Range Interpretation Comments HEMOGLOBIN A1c (test code = 65634) 6.7 % HEMOGLOBIN [id number] 00:00:00 Test Item Value Reference Range Interpretation Comments HEMOGLOBIN A1c (test code = 64744) 6.7 % LIPID [id number] 00:00:00 Test Item Value Reference Range Interpretation Comments CHOLESTEROL (test code = 2210) 267 MG/DL TRIGLYCERIDES (test code = 2232) 137 MG/DL HDL CHOLESTEROL (test code = 2220) 48 MG/DL CALC LDL CHOL (test code = 2237) 192 MG/DL RISK RATIO LDL/HDL (test code = 4.00 RATIO 2238) COMPREHENSIVE METABOLIC [id number] 00:00:00 Test Item Value Reference Range Interpretation Comments GLUCOSE (test code = 2217) 155 MG/DL BUN (test code = 2208) 14 MG/DL CREATININE (test code = 2214) 0.52 MG/DL eGFR AMER. (test code 122 ML/MIN/1.73 = 03516) eGFR NON- AMER. (test 105 ML/MIN/1.73 code = 67320) CALC BUN/CREAT (test code = 27 RATIO [...] THYROX. BIND. CAPAC. (test code 1.0 = 74578) T4 (THYROXINE) (test code = 4.7 UG/DL 2819) CORRECTED T4 (FTI) (test code = 4.7 UG/DL 2820) TSH, THIRD GENERATION (test code 0.201 UIU/ML = 2821) HEMOGLOBIN [id number] 00:00:00 Test Item Value Reference Range Interpretation Comments HEMOGLOBIN A1c (test code = 37200) 6.7 % HEMOGLOBIN [id number] 00:00:00 Test Item Value Reference Range Interpretation Comments HEMOGLOBIN A1c (test code = 86053) 6.7 % HEMOGLOBIN [id number] 00:00:00 Test Item Value Reference Range Interpretation Comments HEMOGLOBIN A1c (test code = 68818) 6.7 % LIPID [id number] 00:00:00 Test Item Value Reference Range Interpretation Comments CHOLESTEROL (test code = 2210) 267 MG/DL TRIGLYCERIDES (test code = 2232) 137 MG/DL HDL CHOLESTEROL (test code = 2220) 48 MG/DL CALC LDL CHOL (test code = 2237) 192 MG/DL RISK RATIO LDL/HDL (test code = 4.00 RATIO 2238) LIPID [id number] 00:00:00 Test Item Value Reference Range Interpretation Comments CHOLESTEROL (test code = 2210) 267 MG/DL TRIGLYCERIDES (test code = 2232) 137 MG/DL HDL CHOLESTEROL (test code = 2220) 48 MG/DL CALC LDL CHOL (test code = 2237) 192 MG/DL RISK RATIO LDL/HDL (test code = 4.00 RATIO 2238) COMPREHENSIVE METABOLIC [id number] 00:00:00 Test Item Value Reference Range Interpretation Comments GLUCOSE (test code = 2217) 155 MG/DL BUN (test code = 2208) 14 MG/DL CREATININE (test code = 2214) 0.52 MG/DL eGFR AMER. (test code 122 ML/MIN/1.73 = 64162) eGFR NON- AMER. (test 105 ML/MIN/1.73 code = 79757) CALC BUN/CREAT (test code = 27 RATIO [...] code = 2219) 27 U/L COMPREHENSIVE METABOLIC [id number] 00:00:00 Test Item Value Reference Range Interpretation Comments GLUCOSE (test code = 2217) 155 MG/DL BUN (test code = 2208) 14 MG/DL CREATININE (test code = 2214) 0.52 MG/DL eGFR AMER. (test code 122 ML/MIN/1.73 = 66858) eGFR NON- AMER. (test 105 ML/MIN/1.73 code [...] THYROX. BIND. CAPAC. (test code 1.0 = 46985) T4 (THYROXINE) (test code = 4.7 UG/DL 2819) CORRECTED T4 (FTI) (test code = 4.7 UG/DL 2820) TSH, THIRD GENERATION (test code 0.201 UIU/ML = 2821) THYROID II PROFILE (T3U, T4, T7, TSH)2019 00:00:00 Test Item Value Reference Range Interpretation Comments T-UPTAKE (test code = 7) 33.1 % THYROX. BIND. CAPAC. (test code 1.0 = 95355) T4 (THYROXINE) (test code = 4.7 UG/DL 2819) CORRECTED T4 (FTI) (test code = 4.7 UG/DL 2820) TSH, THIRD GENERATION (test code 0.201 UIU/ML = 2821) SARS-CoV-2 (COVID-19) by RT-PCR (HIGH RISK)2019-09-18 00:00:00 Test Item Value Reference Range Interpretation Comments SARS-CoV-2 INTERPRETATION (test NEGATIVE code = 27997) SOURCE (test code = 86771) NOT SPECIFIED SARS-CoV-2 (COVID-19) by RT-PCR (HIGH RISK)2019-09-18 00:00:00 Test Item Value Reference Range Interpretation Comments SARS-CoV-2 INTERPRETATION (test NEGATIVE code = 54808) SOURCE (test code = 93858) NOT SPECIFIED SARS-CoV-2 (COVID-19) by RT-PCR (HIGH RISK)2019-09-18 00:00:00 Test Item Value Reference Range Interpretation Comments SARS-CoV-2 INTERPRETATION (test NEGATIVE code = 72350) SOURCE (test code = 27674) NOT SPECIFIED SARS-CoV-2 (COVID-19) by RT-PCR (HIGH RISK)2019-09-18 00:00:00 Test Item Value Reference Range Interpretation Comments SARS-CoV-2 INTERPRETATION (test NEGATIVE code = 56256) SOURCE (test code = 45997) NOT SPECIFIED SARS-CoV-2 (COVID-19) by RT-PCR (HIGH RISK)2019-09-18 00:00:00 Test Item Value Reference Range Interpretation Comments SARS-CoV-2 INTERPRETATION (test NEGATIVE code = 17934) SOURCE (test code = 54220) NOT SPECIFIED SARS-CoV-2 (COVID-19) by RT-PCR (HIGH RISK)2019-09-18 00:00:00 Test Item Value Reference Range Interpretation Comments SARS-CoV-2 INTERPRETATION (test NEGATIVE code = 44104) SOURCE (test code = 22764) NOT SPECIFIED SARS-CoV-2 (COVID-19) by RT-PCR (HIGH RISK)2019-09-18 00:00:00 Test Item Value Reference Range Interpretation Comments SARS-CoV-2 INTERPRETATION (test NEGATIVE code = 92194) SOURCE (test code = 74805) NOT SPECIFIED [id number] 00:00:00 Test Item Value Reference Range Interpretation Comments TSH, THIRD GENERATION (test code 2.490 UIU/ML = 2821) [id number] 00:00:00 Test Item Value Reference Range Interpretation Comments TSH, THIRD GENERATION (test code 2.490 UIU/ML = 2821) [id number] 00:00:00 Test Item Value Reference Range Interpretation Comments TSH, THIRD GENERATION (test code 2.490 UIU/ML = 2821) HEMOGLOBIN [id number] 00:00:00 Test Item Value Reference Range Interpretation Comments HEMOGLOBIN A1c (test code = 91868) 6.4 % HEMOGLOBIN [id number] 00:00:00 Test Item Value Reference Range Interpretation Comments HEMOGLOBIN A1c (test code = 17012) 6.4 % HEMOGLOBIN [id number] 00:00:00 Test Item Value Reference Range Interpretation Comments HEMOGLOBIN A1c (test code = 88307) 6.4 % COMPREHENSIVE METABOLIC [id number] 00:00:00 Test Item Value Reference Range Interpretation Comments GLUCOSE (test code = 2217) 206 MG/DL BUN (test code = 2208) 23 MG/DL CREATININE (test code = 2214) 0.67 MG/DL eGFR AMER. (test code 112 ML/MIN/1.73 = 81472) eGFR NON- AMER. (test 97 ML/MIN/1.73 code = 65289) CALC BUN/CREAT (test code = 34 RATIO [...] code = 2219) 25 U/L COMPREHENSIVE METABOLIC [id number] 00:00:00 Test Item Value Reference Range Interpretation Comments GLUCOSE (test code = 2217) 206 MG/DL BUN (test code = 2208) 23 MG/DL CREATININE (test code = 2214) 0.67 MG/DL eGFR AMER. (test code 112 ML/MIN/1.73 = 10397) eGFR NON- AMER. (test 97 ML/MIN/1.73 code = 92966) CALC BUN/CREAT (test code = 34 RATIO [...] ALT (test code = 2219) 25 U/L [id number] 00:00:00 Test Item Value Reference Range Interpretation Comments TSH, THIRD GENERATION (test code 2.490 UIU/ML = 2821) [id number] 00:00:00 Test Item Value Reference Range Interpretation Comments TSH, THIRD GENERATION (test code 2.490 UIU/ML = 2821) [id number] 00:00:00 Test Item Value Reference Range Interpretation Comments TSH, THIRD GENERATION (test code 2.490 UIU/ML = 2821) HEMOGLOBIN [id number] 00:00:00 Test Item Value Reference Range Interpretation Comments HEMOGLOBIN A1c (test code = 90293) 6.4 % HEMOGLOBIN [id number] 00:00:00 Test Item Value Reference Range Interpretation Comments HEMOGLOBIN A1c (test code = 77453) 6.4 % HEMOGLOBIN [id number] 00:00:00 Test Item Value Reference Range Interpretation Comments HEMOGLOBIN A1c (test code = 55316) 6.4 % COMPREHENSIVE METABOLIC [id number] 00:00:00 Test Item Value Reference Range Interpretation Comments GLUCOSE (test code = 2217) 206 MG/DL BUN (test code = 2208) 23 MG/DL CREATININE (test code = 2214) 0.67 MG/DL eGFR AMER. (test code 112 ML/MIN/1.73 = 33189) eGFR NON- AMER. (test 97 ML/MIN/1.73 code = 45102) CALC BUN/CREAT (test code = 34 RATIO [...] code = 2219) 25 U/L COMPREHENSIVE METABOLIC [id number] 00:00:00 Test Item Value Reference Range Interpretation Comments GLUCOSE (test code = 2217) 206 MG/DL BUN (test code = 2208) 23 MG/DL CREATININE (test code = 2214) 0.67 MG/DL eGFR AMER. (test code 112 ML/MIN/1.73 = 39946) eGFR NON- AMER. (test 97 ML/MIN/1.73 code = 60779) CALC BUN/CREAT (test code = 34 RATIO [...] ALT (test code = 2219) 25 U/L [id number] 00:00:00 Test Item Value Reference Range Interpretation Comments TSH, THIRD GENERATION (test code 2.490 UIU/ML = 2821) [id number] 00:00:00 Test Item Value Reference Range Interpretation Comments TSH, THIRD GENERATION (test code 2.490 UIU/ML = 2821) HEMOGLOBIN [id number] 00:00:00 Test Item Value Reference Range Interpretation Comments HEMOGLOBIN A1c (test code = 78410) 6.4 % HEMOGLOBIN [id number] 00:00:00 Test Item Value Reference Range Interpretation Comments HEMOGLOBIN A1c (test code = 79964) 6.4 % COMPREHENSIVE METABOLIC [id number] 00:00:00 Test Item Value Reference Range Interpretation Comments GLUCOSE (test code = 2217) 206 MG/DL BUN (test code = 2208) 23 MG/DL CREATININE (test code = 2214) 0.67 MG/DL eGFR AMER. (test code 112 ML/MIN/1.73 = 43145) eGFR NON- AMER. (test 97 ML/MIN/1.73 code = 04035) CALC BUN/CREAT (test code = 34 RATIO [...] ALT (test code = 2219) 25 U/L [id number] 00:00:00 Test Item Value Reference Range Interpretation Comments TSH, THIRD GENERATION (test code 2.490 UIU/ML = 2821) [id number] 00:00:00 Test Item Value Reference Range Interpretation Comments TSH, THIRD GENERATION (test code 2.490 UIU/ML = 2821) [id number] 00:00:00 Test Item Value Reference Range Interpretation Comments TSH, THIRD GENERATION (test code 2.490 UIU/ML = 2821) HEMOGLOBIN [id number] 00:00:00 Test Item Value Reference Range Interpretation Comments HEMOGLOBIN A1c (test code = 83898) 6.4 % HEMOGLOBIN [id number] 00:00:00 Test Item Value Reference Range Interpretation Comments HEMOGLOBIN A1c (test code = 57986) 6.4 % HEMOGLOBIN [id number] 00:00:00 Test Item Value Reference Range Interpretation Comments HEMOGLOBIN A1c (test code = 65718) 6.4 % COMPREHENSIVE METABOLIC [id number] 00:00:00 Test Item Value Reference Range Interpretation Comments GLUCOSE (test code = 2217) 206 MG/DL BUN (test code = 2208) 23 MG/DL CREATININE (test code = 2214) 0.67 MG/DL eGFR AMER. (test code 112 ML/MIN/1.73 = 81843) eGFR NON- AMER. (test 97 ML/MIN/1.73 code = 49565) CALC BUN/CREAT (test code = 34 RATIO [...] code = 2219) 25 U/L COMPREHENSIVE METABOLIC [id number] 00:00:00 Test Item Value Reference Range Interpretation Comments GLUCOSE (test code = 2217) 206 MG/DL BUN (test code = 2208) 23 MG/DL CREATININE (test code = 2214) 0.67 MG/DL eGFR AMER. (test code 112 ML/MIN/1.73 = 64383) eGFR NON- AMER. (test 97 ML/MIN/1.73 code = 66213) CALC BUN/CREAT (test code = 34 RATIO [...] = 2219) 25 U/L VAGINAL PATHOGENS DNA [id number] 00:00:00 Test Item Value Reference Range Interpretation Comments MARK SPECIES (test code = 95106) NEGATIVE G. VAGINALIS (test code = 06871) NEGATIVE T. VAGINALIS (test code = 90961) NEGATIVE VAGINAL PATHOGENS DNA [id number] 00:00:00 Test Item Value Reference Range Interpretation Comments MARK SPECIES (test code = 47413) NEGATIVE G. VAGINALIS (test code = 89302) NEGATIVE T. VAGINALIS (test code = 16632) NEGATIVE VAGINAL PATHOGENS DNA [id number] 00:00:00 Test Item Value Reference Range Interpretation Comments MARK SPECIES (test code = 92417) NEGATIVE G. VAGINALIS (test code = 57319) NEGATIVE T. VAGINALIS (test code = 36498) NEGATIVE VAGINAL PATHOGENS DNA [id number] 00:00:00 Test Item Value Reference Range Interpretation Comments MARK SPECIES (test code = 18303) NEGATIVE G. VAGINALIS (test code = 03580) NEGATIVE T. VAGINALIS (test code = 06138) NEGATIVE VAGINAL PATHOGENS DNA [id number] 00:00:00 Test Item Value Reference Range Interpretation Comments MARK SPECIES (test code = 84479) NEGATIVE G. VAGINALIS (test code = 58478) NEGATIVE T. VAGINALIS (test code = 28485) NEGATIVE VAGINAL PATHOGENS DNA [id number] 00:00:00 Test Item Value Reference Range Interpretation Comments MARK SPECIES (test code = 63801) NEGATIVE G. VAGINALIS (test code = 09982) NEGATIVE T. VAGINALIS (test code = 76271) NEGATIVE VAGINAL PATHOGENS DNA [id number] 00:00:00 Test Item Value Reference Range Interpretation Comments MARK SPECIES (test code = 13209) NEGATIVE G. VAGINALIS (test code = 94787) NEGATIVE T. VAGINALIS (test code = 82123) NEGATIVE HEMOGLOBIN A1c [ADDED]2018-12-01 00:00:00 Test Item Value Reference Range Interpretation Comments HEMOGLOBIN A1c (test code = 17030) 6.7 % HEMOGLOBIN A1c [ADDED]2018-12-01 00:00:00 Test Item Value Reference Range Interpretation Comments HEMOGLOBIN A1c (test code = 52797) 6.7 % HEMOGLOBIN A1c [ADDED]2018-12-01 00:00:00 Test Item Value Reference Range Interpretation Comments HEMOGLOBIN A1c (test code = 57184) 6.7 % COMPREHENSIVE METABOLIC PANEL [ADDED]2018-12-01 00:00:00 Test Item Value Reference Range Interpretation Comments GLUCOSE (test code = 2217) 136 MG/DL BUN (test code = 2208) 15 MG/DL CREATININE (test code = 2214) 0.64 MG/DL eGFR AMER. (test code 115 ML/MIN/1.73 = 52830) eGFR NON- AMER. (test 99 ML/MIN/1.73 code = 10586) CALC BUN/CREAT (test code = 23 RATIO [...] eGFR AMER. (test code 115 ML/MIN/1.73 = 15777) eGFR NON- AMER. (test 99 ML/MIN/1.73 code = 18501) CALC BUN/CREAT (test code = 23 RATIO [...] Interpretation Comments HEMOGLOBIN A1c (test code = 78850) 6.7 % HEMOGLOBIN A1c [ADDED]2018-12-01 00:00:00 Test Item Value Reference Range Interpretation Comments HEMOGLOBIN A1c (test code = 79584) 6.7 % HEMOGLOBIN A1c [ADDED]2018-12-01 00:00:00 Test Item Value Reference Range Interpretation Comments HEMOGLOBIN A1c (test code = 97473) 6.7 % COMPREHENSIVE METABOLIC PANEL [ADDED]2018-12-01 00:00:00 Test Item Value Reference Range Interpretation Comments GLUCOSE (test code = 2217) 136 MG/DL BUN (test code = 2208) 15 MG/DL CREATININE (test code = 2214) 0.64 MG/DL eGFR AMER. (test code 115 ML/MIN/1.73 = 05460) eGFR NON- AMER. (test 99 ML/MIN/1.73 code = 81086) CALC BUN/CREAT (test code = 23 RATIO [...] eGFR AMER. (test code 115 ML/MIN/1.73 = 44858) eGFR NON- AMER. (test 99 ML/MIN/1.73 code = 06139) CALC BUN/CREAT (test code = 23 RATIO [...] Interpretation Comments HEMOGLOBIN A1c (test code = 87561) 6.7 % HEMOGLOBIN A1c [ADDED]2018-12-01 00:00:00 Test Item Value Reference Range Interpretation Comments HEMOGLOBIN A1c (test code = 23071) 6.7 % COMPREHENSIVE METABOLIC PANEL [ADDED]2018-12-01 00:00:00 Test Item Value Reference Range Interpretation Comments GLUCOSE (test code = 2217) 136 MG/DL BUN (test code = 2208) 15 MG/DL CREATININE (test code = 2214) 0.64 MG/DL eGFR AMER. (test code 115 ML/MIN/1.73 = 35679) eGFR NON- AMER. (test 99 ML/MIN/1.73 code = 70147) CALC BUN/CREAT (test code = 23 RATIO [...] Interpretation Comments HEMOGLOBIN A1c (test code = 31177) 6.7 % HEMOGLOBIN A1c [ADDED]2018-12-01 00:00:00 Test Item Value Reference Range Interpretation Comments HEMOGLOBIN A1c (test code = 29712) 6.7 % HEMOGLOBIN A1c [ADDED]2018-12-01 00:00:00 Test Item Value Reference Range Interpretation Comments HEMOGLOBIN A1c (test code = 05697) 6.7 % COMPREHENSIVE METABOLIC PANEL [ADDED]2018-12-01 00:00:00 Test Item Value Reference Range Interpretation Comments GLUCOSE (test code = 2217) 136 MG/DL BUN (test code = 2208) 15 MG/DL CREATININE (test code = 2214) 0.64 MG/DL eGFR AMER. (test code 115 ML/MIN/1.73 = 02539) eGFR NON- AMER. (test 99 ML/MIN/1.73 code = 32202) CALC BUN/CREAT (test code = 23 RATIO [...] eGFR AMER. (test code 115 ML/MIN/1.73 = 72207) eGFR NON- AMER. (test 99 ML/MIN/1.73 code = 86010) CALC BUN/CREAT (test code = 23 RATIO [...] code 1.280 UIU/ML = 2821) CBC W/AUTO [id number] 00:00:00 Test Item Value Reference Range Interpretation [...] code = 1015) 346 K/UL CBC W/AUTO [id number] 00:00:00 Test Item Value Reference Range Interpretation [...] code = 1015) 346 K/UL CBC W/AUTO [id number] 00:00:00 Test Item Value Reference Range Interpretation [...] (test code = 1015) 346 K/UL HEMOGLOBIN [id number] 00:00:00 Test Item Value Reference Range Interpretation Comments HEMOGLOBIN A1c (test code = 21686) 5.9 % HEMOGLOBIN [id number] 00:00:00 Test Item Value Reference Range Interpretation Comments HEMOGLOBIN A1c (test code = 16382) 5.9 % HEMOGLOBIN [id number] 00:00:00 Test Item Value Reference Range Interpretation Comments HEMOGLOBIN A1c (test code = 38177) 5.9 % LIPID [id number] 00:00:00 Test Item Value Reference Range Interpretation Comments CHOLESTEROL (test code = 2210) 318 MG/DL TRIGLYCERIDES (test code = 2232) 263 MG/DL HDL CHOLESTEROL (test code = 2220) 51 MG/DL CALC LDL CHOL (test code = 2237) 214 MG/DL RISK RATIO LDL/HDL (test code = 4.20 RATIO 2238) LIPID [id number] 00:00:00 Test Item Value Reference Range Interpretation Comments CHOLESTEROL (test code = 2210) 318 MG/DL TRIGLYCERIDES (test code = 2232) 263 MG/DL HDL CHOLESTEROL (test code = 2220) 51 MG/DL CALC LDL CHOL (test code = 2237) 214 MG/DL RISK RATIO LDL/HDL (test code = 4.20 RATIO 2238) COMPREHENSIVE METABOLIC [id number] 00:00:00 Test Item Value Reference Range Interpretation Comments GLUCOSE (test code = 2217) 113 MG/DL BUN (test code = 2208) 18 MG/DL CREATININE (test code = 2214) 0.70 MG/DL eGFR AMER. (test code 111 ML/MIN/1.73 = 81752) eGFR NON- AMER. (test 96 ML/MIN/1.73 code = 53451) CALC BUN/CREAT (test code = 26 RATIO [...] code = 2219) 31 U/L COMPREHENSIVE METABOLIC [id number] 00:00:00 Test Item Value Reference Range Interpretation Comments GLUCOSE (test code = 2217) 113 MG/DL BUN (test code = 2208) 18 MG/DL CREATININE (test code = 2214) 0.70 MG/DL eGFR AMER. (test code 111 ML/MIN/1.73 = 92879) eGFR NON- AMER. (test 96 ML/MIN/1.73 code = 08765) CALC BUN/CREAT (test code = 26 RATIO [...] ALT (test code = 2219) 31 U/L [id number] 00:00:00 Test Item Value Reference Range Interpretation Comments TSH, THIRD GENERATION (test code 2.520 UIU/ML = 2821) [id number] 00:00:00 Test Item Value Reference Range Interpretation Comments TSH, THIRD GENERATION (test code 2.520 UIU/ML = 2821) [id number] 00:00:00 Test Item Value Reference Range Interpretation Comments TSH, THIRD GENERATION (test code 2.520 UIU/ML = 2821) CBC W/AUTO [id number] 00:00:00 Test Item Value Reference Range Interpretation [...] code = 1015) 346 K/UL CBC W/AUTO [id number] 00:00:00 Test Item Value Reference Range Interpretation [...] code = 1015) 346 K/UL CBC W/AUTO [id number] 00:00:00 Test Item Value Reference Range Interpretation [...] (test code = 1015) 346 K/UL HEMOGLOBIN [id number] 00:00:00 Test Item Value Reference Range Interpretation Comments HEMOGLOBIN A1c (test code = 49071) 5.9 % HEMOGLOBIN [id number] 00:00:00 Test Item Value Reference Range Interpretation Comments HEMOGLOBIN A1c (test code = 53746) 5.9 % HEMOGLOBIN [id number] 00:00:00 Test Item Value Reference Range Interpretation Comments HEMOGLOBIN A1c (test code = 95772) 5.9 % LIPID [id number] 00:00:00 Test Item Value Reference Range Interpretation Comments CHOLESTEROL (test code = 2210) 318 MG/DL TRIGLYCERIDES (test code = 2232) 263 MG/DL HDL CHOLESTEROL (test code = 2220) 51 MG/DL CALC LDL CHOL (test code = 2237) 214 MG/DL RISK RATIO LDL/HDL (test code = 4.20 RATIO 2238) LIPID [id number] 00:00:00 Test Item Value Reference Range Interpretation Comments CHOLESTEROL (test code = 2210) 318 MG/DL TRIGLYCERIDES (test code = 2232) 263 MG/DL HDL CHOLESTEROL (test code = 2220) 51 MG/DL CALC LDL CHOL (test code = 2237) 214 MG/DL RISK RATIO LDL/HDL (test code = 4.20 RATIO 2238) COMPREHENSIVE METABOLIC [id number] 00:00:00 Test Item Value Reference Range Interpretation Comments GLUCOSE (test code = 2217) 113 MG/DL BUN (test code = 2208) 18 MG/DL CREATININE (test code = 2214) 0.70 MG/DL eGFR AMER. (test code 111 ML/MIN/1.73 = 94607) eGFR NON- AMER. (test 96 ML/MIN/1.73 code = 21424) CALC BUN/CREAT (test code = 26 RATIO [...] code = 2219) 31 U/L COMPREHENSIVE METABOLIC [id number] 00:00:00 Test Item Value Reference Range Interpretation Comments GLUCOSE (test code = 2217) 113 MG/DL BUN (test code = 2208) 18 MG/DL CREATININE (test code = 2214) 0.70 MG/DL eGFR AMER. (test code 111 ML/MIN/1.73 = 24492) eGFR NON- AMER. (test 96 ML/MIN/1.73 code = 20343) CALC BUN/CREAT (test code = 26 RATIO [...] ALT (test code = 2219) 31 U/L [id number] 00:00:00 Test Item Value Reference Range Interpretation Comments TSH, THIRD GENERATION (test code 2.520 UIU/ML = 2821) [id number] 00:00:00 Test Item Value Reference Range Interpretation Comments TSH, THIRD GENERATION (test code 2.520 UIU/ML = 2821) [id number] 00:00:00 Test Item Value Reference Range Interpretation Comments TSH, THIRD GENERATION (test code 2.520 UIU/ML = 2821) CBC W/AUTO [id number] 00:00:00 Test Item Value Reference Range Interpretation [...] code = 1015) 346 K/UL CBC W/AUTO [id number] 00:00:00 Test Item Value Reference Range Interpretation [...] (test code = 1015) 346 K/UL HEMOGLOBIN [id number] 00:00:00 Test Item Value Reference Range Interpretation Comments HEMOGLOBIN A1c (test code = 08934) 5.9 % HEMOGLOBIN [id number] 00:00:00 Test Item Value Reference Range Interpretation Comments HEMOGLOBIN A1c (test code = 34570) 5.9 % LIPID [id number] 00:00:00 Test Item Value Reference Range Interpretation Comments CHOLESTEROL (test code = 2210) 318 MG/DL TRIGLYCERIDES (test code = 2232) 263 MG/DL HDL CHOLESTEROL (test code = 2220) 51 MG/DL CALC LDL CHOL (test code = 2237) 214 MG/DL RISK RATIO LDL/HDL (test code = 4.20 RATIO 2238) COMPREHENSIVE METABOLIC [id number] 00:00:00 Test Item Value Reference Range Interpretation Comments GLUCOSE (test code = 2217) 113 MG/DL BUN (test code = 2208) 18 MG/DL CREATININE (test code = 2214) 0.70 MG/DL eGFR AMER. (test code 111 ML/MIN/1.73 = 53225) eGFR NON- AMER. (test 96 ML/MIN/1.73 code = 27288) CALC BUN/CREAT (test code = 26 RATIO [...] ALT (test code = 2219) 31 U/L [id number] 00:00:00 Test Item Value Reference Range Interpretation Comments TSH, THIRD GENERATION (test code 2.520 UIU/ML = 2821) [id number] 00:00:00 Test Item Value Reference Range Interpretation Comments TSH, THIRD GENERATION (test code 2.520 UIU/ML = 2821) CBC W/AUTO [id number] 00:00:00 Test Item Value Reference Range Interpretation [...] code = 1015) 346 K/UL CBC W/AUTO [id number] 00:00:00 Test Item Value Reference Range Interpretation [...] code = 1015) 346 K/UL CBC W/AUTO [id number] 00:00:00 Test Item Value Reference Range Interpretation [...] (test code = 1015) 346 K/UL HEMOGLOBIN [id number] 00:00:00 Test Item Value Reference Range Interpretation Comments HEMOGLOBIN A1c (test code = 26263) 5.9 % HEMOGLOBIN [id number] 00:00:00 Test Item Value Reference Range Interpretation Comments HEMOGLOBIN A1c (test code = 77040) 5.9 % HEMOGLOBIN [id number] 00:00:00 Test Item Value Reference Range Interpretation Comments HEMOGLOBIN A1c (test code = 78070) 5.9 % LIPID [id number] 00:00:00 Test Item Value Reference Range Interpretation Comments CHOLESTEROL (test code = 2210) 318 MG/DL TRIGLYCERIDES (test code = 2232) 263 MG/DL HDL CHOLESTEROL (test code = 2220) 51 MG/DL CALC LDL CHOL (test code = 2237) 214 MG/DL RISK RATIO LDL/HDL (test code = 4.20 RATIO 2238) LIPID [id number] 00:00:00 Test Item Value Reference Range Interpretation Comments CHOLESTEROL (test code = 2210) 318 MG/DL TRIGLYCERIDES (test code = 2232) 263 MG/DL HDL CHOLESTEROL (test code = 2220) 51 MG/DL CALC LDL CHOL (test code = 2237) 214 MG/DL RISK RATIO LDL/HDL (test code = 4.20 RATIO 2238) COMPREHENSIVE METABOLIC [id number] 00:00:00 Test Item Value Reference Range Interpretation Comments GLUCOSE (test code = 2217) 113 MG/DL BUN (test code = 2208) 18 MG/DL CREATININE (test code = 2214) 0.70 MG/DL eGFR AMER. (test code 111 ML/MIN/1.73 = 06386) eGFR NON- AMER. (test 96 ML/MIN/1.73 code = 44738) CALC BUN/CREAT (test code = 26 RATIO [...] code = 2219) 31 U/L COMPREHENSIVE METABOLIC [id number] 00:00:00 Test Item Value Reference Range Interpretation Comments GLUCOSE (test code = 2217) 113 MG/DL BUN (test code = 2208) 18 MG/DL CREATININE (test code = 2214) 0.70 MG/DL eGFR AMER. (test code 111 ML/MIN/1.73 = 89696) eGFR NON- AMER. (test 96 ML/MIN/1.73 code = 73503) CALC BUN/CREAT (test code = 26 RATIO [...] ALT (test code = 2219) 31 U/L [id number] 00:00:00 Test Item Value Reference Range Interpretation Comments TSH, THIRD GENERATION (test code 2.520 UIU/ML = 2821) [id number] 00:00:00 Test Item Value Reference Range Interpretation Comments TSH, THIRD GENERATION (test code 2.520 UIU/ML = 2821) [id number] 00:00:00 Test Item Value Reference Range Interpretation Comments TSH, THIRD GENERATION (test code 2.520 UIU/ML = 2821) CULTURE, [id number] 00:00:00 Test Item Value Reference Range Interpretation Comments CULTURE, URINE (test SPECIMEN NUMBER: code = 17825) [id number] CULTURE, [id number] 00:00:00 Test Item Value Reference Range Interpretation Comments CULTURE, URINE (test SPECIMEN NUMBER: code = 29608) [id number] CULTURE, [id number] 00:00:00 Test Item Value Reference Range Interpretation Comments CULTURE, URINE (test SPECIMEN NUMBER: code = 49528) [id number] CULTURE, [id number] 00:00:00 Test Item Value Reference Range Interpretation Comments CULTURE, URINE (test SPECIMEN NUMBER: code = 47994) [id number] CULTURE, [id number] 00:00:00 Test Item Value Reference Range Interpretation Comments CULTURE, URINE (test SPECIMEN NUMBER: code = 60725) [id number] CULTURE, [id number] 00:00:00 Test Item Value Reference Range Interpretation Comments CULTURE, URINE (test SPECIMEN NUMBER: code = 75983) [id number] CULTURE, [id number] 00:00:00 Test Item Value Reference Range Interpretation Comments CULTURE, URINE (test SPECIMEN NUMBER: code = 86851) [id number] CULTURE, [id number] 00:00:00 Test Item Value Reference Range Interpretation Comments CULTURE, URINE (test SPECIMEN NUMBER: code = 94759) [id number] CULTURE, [id number] 00:00:00 Test Item Value Reference Range Interpretation Comments CULTURE, URINE (test SPECIMEN NUMBER: code = 61161) [id number] CULTURE, [id number] 00:00:00 Test Item Value Reference Range Interpretation Comments CULTURE, URINE (test SPECIMEN NUMBER: code = 32831) [id number] CULTURE, [id number] 00:00:00 Test Item Value Reference Range Interpretation Comments CULTURE, URINE (test SPECIMEN NUMBER: code = 42881) [id number] CULTURE, [id number] 00:00:00 Test Item Value Reference Range Interpretation Comments CULTURE, URINE (test SPECIMEN NUMBER: code = 87362) [id number] CULTURE, [id number] 00:00:00 Test Item Value Reference Range Interpretation Comments CULTURE, URINE (test SPECIMEN NUMBER: code = 51602) [id number] CULTURE, [id number] 00:00:00 Test Item Value Reference Range Interpretation Comments CULTURE, URINE (test SPECIMEN NUMBER: code = 02160) [id number] BASIC METABOLIC [id number] 00:00:00 Test Item Value Reference Range Interpretation Comments GLUCOSE (test code = 2217) 135 MG/DL BUN (test code = 2208) 25 MG/DL CREATININE (test code = 2214) 0.76 MG/DL eGFR AMER. (test code 101 ML/MIN/1.73 = 97751) eGFR NON- AMER. (test 87 ML/MIN/1.73 code = 18532) SODIUM (test code = 2231) 139 MEQ/L POTASSIUM (test code = 2228) 4.7 MEQ/L CHLORIDE (test code = 2215) 99 MEQ/L CARBON DIOXIDE (test code = 26 MEQ/L 2206) CALCIUM (test code = 2209) 9.4 MG/DL BASIC METABOLIC [id number] 00:00:00 Test Item Value Reference Range Interpretation Comments GLUCOSE (test code = 2217) 135 MG/DL BUN (test code = 2208) 25 MG/DL CREATININE (test code = 2214) 0.76 MG/DL eGFR AMER. (test code 101 ML/MIN/1.73 = 28473) eGFR NON- AMER. (test 87 ML/MIN/1.73 code = 67647) SODIUM (test code = 2231) 139 MEQ/L POTASSIUM (test code = 2228) 4.7 MEQ/L CHLORIDE (test code = 2215) 99 MEQ/L CARBON DIOXIDE (test code = 26 MEQ/L 2206) CALCIUM (test code = 2209) 9.4 MG/DL LIPID [id number] 00:00:00 Test Item Value Reference Range Interpretation Comments CHOLESTEROL (test code = 2210) 262 MG/DL TRIGLYCERIDES (test code = 2232) 300 MG/DL HDL CHOLESTEROL (test code = 2220) 36 MG/DL CALC LDL CHOL (test code = 2237) 166 MG/DL RISK RATIO LDL/HDL (test code = 4.61 RATIO 2238) LIPID [id number] 00:00:00 Test Item Value Reference Range Interpretation Comments CHOLESTEROL (test code = 2210) 262 MG/DL TRIGLYCERIDES (test code = 2232) 300 MG/DL HDL CHOLESTEROL (test code = 2220) 36 MG/DL CALC LDL CHOL (test code = 2237) 166 MG/DL RISK RATIO LDL/HDL (test code = 4.61 RATIO 2238) HEMOGLOBIN [id number] 00:00:00 Test Item Value Reference Range Interpretation Comments HEMOGLOBIN A1c (test code = 10931) 6.2 % HEMOGLOBIN [id number] 00:00:00 Test Item Value Reference Range Interpretation Comments HEMOGLOBIN A1c (test code = 18663) 6.2 % HEMOGLOBIN [id number] 00:00:00 Test Item Value Reference Range Interpretation Comments HEMOGLOBIN A1c (test code = 67041) 6.2 % [id number] 00:00:00 Test Item Value Reference Range Interpretation Comments TSH, THIRD GENERATION (test code 0.988 UIU/ML = 2821) [id number] 00:00:00 Test Item Value Reference Range Interpretation Comments TSH, THIRD GENERATION (test code 0.988 UIU/ML = 2821) [id number] 00:00:00 Test Item Value Reference Range Interpretation Comments TSH, THIRD GENERATION (test code 0.988 UIU/ML = 2821) BASIC METABOLIC [id number] 00:00:00 Test Item Value Reference Range Interpretation Comments GLUCOSE (test code = 2217) 135 MG/DL BUN (test code = 2208) 25 MG/DL CREATININE (test code = 2214) 0.76 MG/DL eGFR AMER. (test code 101 ML/MIN/1.73 = 62496) eGFR NON- AMER. (test 87 ML/MIN/1.73 code = 83038) SODIUM (test code = 2231) 139 MEQ/L POTASSIUM (test code = 2228) 4.7 MEQ/L CHLORIDE (test code = 2215) 99 MEQ/L CARBON DIOXIDE (test code = 26 MEQ/L 2205) CALCIUM (test code = 2209) 9.4 MG/DL BASIC METABOLIC [id number] 00:00:00 Test Item Value Reference Range Interpretation Comments GLUCOSE (test code = 2217) 135 MG/DL BUN (test code = 2208) 25 MG/DL CREATININE (test code = 2214) 0.76 MG/DL eGFR AMER. (test code 101 ML/MIN/1.73 = 80582) eGFR NON- AMER. (test 87 ML/MIN/1.73 code = 11660) SODIUM (test code = 2231) 139 MEQ/L POTASSIUM (test code = 2228) 4.7 MEQ/L CHLORIDE (test code = 2215) 99 MEQ/L CARBON DIOXIDE (test code = 26 MEQ/L 2206) CALCIUM (test code = 2209) 9.4 MG/DL LIPID [id number] 00:00:00 Test Item Value Reference Range Interpretation Comments CHOLESTEROL (test code = 2210) 262 MG/DL TRIGLYCERIDES (test code = 2232) 300 MG/DL HDL CHOLESTEROL (test code = 2220) 36 MG/DL CALC LDL CHOL (test code = 2237) 166 MG/DL RISK RATIO LDL/HDL (test code = 4.61 RATIO 2238) LIPID [id number] 00:00:00 Test Item Value Reference Range Interpretation Comments CHOLESTEROL (test code = 2210) 262 MG/DL TRIGLYCERIDES (test code = 2232) 300 MG/DL HDL CHOLESTEROL (test code = 2220) 36 MG/DL CALC LDL CHOL (test code = 2237) 166 MG/DL RISK RATIO LDL/HDL (test code = 4.61 RATIO 2238) HEMOGLOBIN [id number] 00:00:00 Test Item Value Reference Range Interpretation Comments HEMOGLOBIN A1c (test code = 68813) 6.2 % HEMOGLOBIN [id number] 00:00:00 Test Item Value Reference Range Interpretation Comments HEMOGLOBIN A1c (test code = 74614) 6.2 % HEMOGLOBIN [id number] 00:00:00 Test Item Value Reference Range Interpretation Comments HEMOGLOBIN A1c (test code = 58389) 6.2 % [id number] 00:00:00 Test Item Value Reference Range Interpretation Comments TSH, THIRD GENERATION (test code 0.988 UIU/ML = 2821) [id number] 00:00:00 Test Item Value Reference Range Interpretation Comments TSH, THIRD GENERATION (test code 0.988 UIU/ML = 2821) [id number] 00:00:00 Test Item Value Reference Range Interpretation Comments TSH, THIRD GENERATION (test code 0.988 UIU/ML = 2821) BASIC METABOLIC [id number] 00:00:00 Test Item Value Reference Range Interpretation Comments GLUCOSE (test code = 2217) 135 MG/DL BUN (test code = 2208) 25 MG/DL CREATININE (test code = 2214) 0.76 MG/DL eGFR AMER. (test code 101 ML/MIN/1.73 = 52698) eGFR NON- AMER. (test 87 ML/MIN/1.73 code = 02174) SODIUM (test code = 2231) 139 MEQ/L POTASSIUM (test code = 2228) 4.7 MEQ/L CHLORIDE (test code = 2215) 99 MEQ/L CARBON DIOXIDE (test code = 26 MEQ/L 2206) CALCIUM (test code = 2209) 9.4 MG/DL LIPID [id number] 00:00:00 Test Item Value Reference Range Interpretation Comments CHOLESTEROL (test code = 2210) 262 MG/DL TRIGLYCERIDES (test code = 2232) 300 MG/DL HDL CHOLESTEROL (test code = 2220) 36 MG/DL CALC LDL CHOL (test code = 2237) 166 MG/DL RISK RATIO LDL/HDL (test code = 4.61 RATIO 2238) HEMOGLOBIN [id number] 00:00:00 Test Item Value Reference Range Interpretation Comments HEMOGLOBIN A1c (test code = 98904) 6.2 % HEMOGLOBIN [id number] 00:00:00 Test Item Value Reference Range Interpretation Comments HEMOGLOBIN A1c (test code = 46436) 6.2 % [id number] 00:00:00 Test Item Value Reference Range Interpretation Comments TSH, THIRD GENERATION (test code 0.988 UIU/ML = 2821) [id number] 00:00:00 Test Item Value Reference Range Interpretation Comments TSH, THIRD GENERATION (test code 0.988 UIU/ML = 2821) BASIC METABOLIC [id number] 00:00:00 Test Item Value Reference Range Interpretation Comments GLUCOSE (test code = 2217) 135 MG/DL BUN (test code = 2208) 25 MG/DL CREATININE (test code = 2214) 0.76 MG/DL eGFR AMER. (test code 101 ML/MIN/1.73 = 14517) eGFR NON- AMER. (test 87 ML/MIN/1.73 code = 94103) SODIUM (test code = 2231) 139 MEQ/L POTASSIUM (test code = 2228) 4.7 MEQ/L CHLORIDE (test code = 2215) 99 MEQ/L CARBON DIOXIDE (test code = 26 MEQ/L 2206) CALCIUM (test code = 2209) 9.4 MG/DL BASIC METABOLIC [id number] 00:00:00 Test Item Value Reference Range Interpretation Comments GLUCOSE (test code = 2217) 135 MG/DL BUN (test code = 2208) 25 MG/DL CREATININE (test code = 2214) 0.76 MG/DL eGFR AMER. (test code 101 ML/MIN/1.73 = 55540) eGFR NON- AMER. (test 87 ML/MIN/1.73 code = 77684) SODIUM (test code = 2231) 139 MEQ/L POTASSIUM (test code = 2228) 4.7 MEQ/L CHLORIDE (test code = 2215) 99 MEQ/L CARBON DIOXIDE (test code = 26 MEQ/L 2206) CALCIUM (test code = 2209) 9.4 MG/DL LIPID [id number] 00:00:00 Test Item Value Reference Range Interpretation Comments CHOLESTEROL (test code = 2210) 262 MG/DL TRIGLYCERIDES (test code = 2232) 300 MG/DL HDL CHOLESTEROL (test code = 2220) 36 MG/DL CALC LDL CHOL (test code = 2237) 166 MG/DL RISK RATIO LDL/HDL (test code = 4.61 RATIO 2238) LIPID [id number] 00:00:00 Test Item Value Reference Range Interpretation Comments CHOLESTEROL (test code = 2210) 262 MG/DL TRIGLYCERIDES (test code = 2232) 300 MG/DL HDL CHOLESTEROL (test code = 2220) 36 MG/DL CALC LDL CHOL (test code = 2237) 166 MG/DL RISK RATIO LDL/HDL (test code = 4.61 RATIO 2238) HEMOGLOBIN [id number] 00:00:00 Test Item Value Reference Range Interpretation Comments HEMOGLOBIN A1c (test code = 84676) 6.2 % HEMOGLOBIN [id number] 00:00:00 Test Item Value Reference Range Interpretation Comments HEMOGLOBIN A1c (test code = 51246) 6.2 % HEMOGLOBIN [id number] 00:00:00 Test Item Value Reference Range Interpretation Comments HEMOGLOBIN A1c (test code = 59268) 6.2 % [id number] 00:00:00 Test Item Value Reference Range Interpretation Comments TSH, THIRD GENERATION (test code 0.988 UIU/ML = 2821) [id number] 00:00:00 Test Item Value Reference Range Interpretation Comments TSH, THIRD GENERATION (test code 0.988 UIU/ML = 2821) [id number] 00:00:00 Test Item Value Reference Range Interpretation Comments TSH, THIRD GENERATION (test code 0.988 UIU/ML = 2821) COMPREHENSIVE METABOLIC [id number] 00:00:00 Test Item Value Reference Range Interpretation Comments GLUCOSE (test code = 2217) 109 MG/DL BUN (test code = 2208) 25 MG/DL CREATININE (test code = 2214) 0.78 MG/DL eGFR AMER. (test code 98 ML/MIN/1.73 = 63304) eGFR NON- AMER. (test 84 ML/MIN/1.73 code = 59846) CALC BUN/CREAT (test code = 32 RATIO [...] code = 2219) 25 U/L COMPREHENSIVE METABOLIC [id number] 00:00:00 Test Item Value Reference Range Interpretation Comments GLUCOSE (test code = 2217) 109 MG/DL BUN (test code = 2208) 25 MG/DL CREATININE (test code = 2214) 0.78 MG/DL eGFR AMER. (test code 98 ML/MIN/1.73 = 25770) eGFR NON- AMER. (test 84 ML/MIN/1.73 code = 72315) CALC BUN/CREAT (test code = 32 RATIO [...] (test code = 2219) 25 U/L LIPID [id number] 00:00:00 Test Item Value Reference Range Interpretation Comments CHOLESTEROL (test code = 2210) 295 MG/DL TRIGLYCERIDES (test code = 2232) 218 MG/DL HDL CHOLESTEROL (test code = 2220) 46 MG/DL CALC LDL CHOL (test code = 2237) 205 MG/DL RISK RATIO LDL/HDL (test code = 4.47 RATIO 2238) LIPID [id number] 00:00:00 Test Item Value Reference Range Interpretation Comments CHOLESTEROL (test code = 2210) 295 MG/DL TRIGLYCERIDES (test code = 2232) 218 MG/DL HDL CHOLESTEROL (test code = 2220) 46 MG/DL CALC LDL CHOL (test code = 2237) 205 MG/DL RISK RATIO LDL/HDL (test code = 4.47 RATIO 2238) HEMOGLOBIN [id number] 00:00:00 Test Item Value Reference Range Interpretation Comments HEMOGLOBIN A1c (test code = 36929) 7.0 % HEMOGLOBIN [id number] 00:00:00 Test Item Value Reference Range Interpretation Comments HEMOGLOBIN A1c (test code = 98517) 7.0 % HEMOGLOBIN [id number] 00:00:00 Test Item Value Reference Range Interpretation Comments HEMOGLOBIN A1c (test code = 26182) 7.0 % [id number] 00:00:00 Test Item Value Reference Range Interpretation Comments TSH, THIRD GENERATION (test code 0.565 UIU/ML = 2821) [id number] 00:00:00 Test Item Value Reference Range Interpretation Comments TSH, THIRD GENERATION (test code 0.565 UIU/ML = 2821) [id number] 00:00:00 Test Item Value Reference Range Interpretation Comments TSH, THIRD GENERATION (test code 0.565 UIU/ML = 2821) COMPREHENSIVE METABOLIC [id number] 00:00:00 Test Item Value Reference Range Interpretation Comments GLUCOSE (test code = 2217) 109 MG/DL BUN (test code = 2208) 25 MG/DL CREATININE (test code = 2214) 0.78 MG/DL eGFR AMER. (test code 98 ML/MIN/1.73 = 75776) eGFR NON- AMER. (test 84 ML/MIN/1.73 code = 49896) CALC BUN/CREAT (test code = 32 RATIO [...] code = 2219) 25 U/L COMPREHENSIVE METABOLIC [id number] 00:00:00 Test Item Value Reference Range Interpretation Comments GLUCOSE (test code = 2217) 109 MG/DL BUN (test code = 2208) 25 MG/DL CREATININE (test code = 2214) 0.78 MG/DL eGFR AMER. (test code 98 ML/MIN/1.73 = 23350) eGFR NON- AMER. (test 84 ML/MIN/1.73 code = 83641) CALC BUN/CREAT (test code = 32 RATIO [...] (test code = 2219) 25 U/L LIPID [id number] 00:00:00 Test Item Value Reference Range Interpretation Comments CHOLESTEROL (test code = 2210) 295 MG/DL TRIGLYCERIDES (test code = 2232) 218 MG/DL HDL CHOLESTEROL (test code = 2220) 46 MG/DL CALC LDL CHOL (test code = 2237) 205 MG/DL RISK RATIO LDL/HDL (test code = 4.47 RATIO 2238) LIPID [id number] 00:00:00 Test Item Value Reference Range Interpretation Comments CHOLESTEROL (test code = 2210) 295 MG/DL TRIGLYCERIDES (test code = 2232) 218 MG/DL HDL CHOLESTEROL (test code = 2220) 46 MG/DL CALC LDL CHOL (test code = 2237) 205 MG/DL RISK RATIO LDL/HDL (test code = 4.47 RATIO 2238) HEMOGLOBIN [id number] 00:00:00 Test Item Value Reference Range Interpretation Comments HEMOGLOBIN A1c (test code = 16304) 7.0 % HEMOGLOBIN [id number] 00:00:00 Test Item Value Reference Range Interpretation Comments HEMOGLOBIN A1c (test code = 54399) 7.0 % HEMOGLOBIN [id number] 00:00:00 Test Item Value Reference Range Interpretation Comments HEMOGLOBIN A1c (test code = 84601) 7.0 % [id number] 00:00:00 Test Item Value Reference Range Interpretation Comments TSH, THIRD GENERATION (test code 0.565 UIU/ML = 2821) [id number] 00:00:00 Test Item Value Reference Range Interpretation Comments TSH, THIRD GENERATION (test code 0.565 UIU/ML = 2821) [id number] 00:00:00 Test Item Value Reference Range Interpretation Comments TSH, THIRD GENERATION (test code 0.565 UIU/ML = 2821) COMPREHENSIVE METABOLIC [id number] 00:00:00 Test Item Value Reference Range Interpretation Comments GLUCOSE (test code = 2217) 109 MG/DL BUN (test code = 2208) 25 MG/DL CREATININE (test code = 2214) 0.78 MG/DL eGFR AMER. (test code 98 ML/MIN/1.73 = 70465) eGFR NON- AMER. (test 84 ML/MIN/1.73 code = 85025) CALC BUN/CREAT (test code = 32 RATIO [...] (test code = 2219) 25 U/L LIPID [id number] 00:00:00 Test Item Value Reference Range Interpretation Comments CHOLESTEROL (test code = 2210) 295 MG/DL TRIGLYCERIDES (test code = 2232) 218 MG/DL HDL CHOLESTEROL (test code = 2220) 46 MG/DL CALC LDL CHOL (test code = 2237) 205 MG/DL RISK RATIO LDL/HDL (test code = 4.47 RATIO 2238) HEMOGLOBIN [id number] 00:00:00 Test Item Value Reference Range Interpretation Comments HEMOGLOBIN A1c (test code = 87380) 7.0 % HEMOGLOBIN [id number] 00:00:00 Test Item Value Reference Range Interpretation Comments HEMOGLOBIN A1c (test code = 65087) 7.0 % [id number] 00:00:00 Test Item Value Reference Range Interpretation Comments TSH, THIRD GENERATION (test code 0.565 UIU/ML = 2821) [id number] 00:00:00 Test Item Value Reference Range Interpretation Comments TSH, THIRD GENERATION (test code 0.565 UIU/ML = 2821) COMPREHENSIVE METABOLIC [id number] 00:00:00 Test Item Value Reference Range Interpretation Comments GLUCOSE (test code = 2217) 109 MG/DL BUN (test code = 2208) 25 MG/DL CREATININE (test code = 2214) 0.78 MG/DL eGFR AMER. (test code 98 ML/MIN/1.73 = 61490) eGFR NON- AMER. (test 84 ML/MIN/1.73 code = 17575) CALC BUN/CREAT (test code = 32 RATIO [...] code = 2219) 25 U/L COMPREHENSIVE METABOLIC [id number] 00:00:00 Test Item Value Reference Range Interpretation Comments GLUCOSE (test code = 2217) 109 MG/DL BUN (test code = 2208) 25 MG/DL CREATININE (test code = 2214) 0.78 MG/DL eGFR AMER. (test code 98 ML/MIN/1.73 = 18849) eGFR NON- AMER. (test 84 ML/MIN/1.73 code = 81532) CALC BUN/CREAT (test code = 32 RATIO [...] (test code = 2219) 25 U/L LIPID [id number] 00:00:00 Test Item Value Reference Range Interpretation Comments CHOLESTEROL (test code = 2210) 295 MG/DL TRIGLYCERIDES (test code = 2232) 218 MG/DL HDL CHOLESTEROL (test code = 2220) 46 MG/DL CALC LDL CHOL (test code = 2237) 205 MG/DL RISK RATIO LDL/HDL (test code = 4.47 RATIO 2238) LIPID [id number] 00:00:00 Test Item Value Reference Range Interpretation Comments CHOLESTEROL (test code = 2210) 295 MG/DL TRIGLYCERIDES (test code = 2232) 218 MG/DL HDL CHOLESTEROL (test code = 2220) 46 MG/DL CALC LDL CHOL (test code = 2237) 205 MG/DL RISK RATIO LDL/HDL (test code = 4.47 RATIO 2238) HEMOGLOBIN [id number] 00:00:00 Test Item Value Reference Range Interpretation Comments HEMOGLOBIN A1c (test code = 34112) 7.0 % HEMOGLOBIN [id number] 00:00:00 Test Item Value Reference Range Interpretation Comments HEMOGLOBIN A1c (test code = 72055) 7.0 % HEMOGLOBIN [id number] 00:00:00 Test Item Value Reference Range Interpretation Comments HEMOGLOBIN A1c (test code = 02783) 7.0 % [id number] 00:00:00 Test Item Value Reference Range Interpretation Comments TSH, THIRD GENERATION (test code 0.565 UIU/ML = 2821) [id number] 00:00:00 Test Item Value Reference Range Interpretation Comments TSH, THIRD GENERATION (test code 0.565 UIU/ML = 2821) [id number] 00:00:00 Test Item Value Reference Range Interpretation Comments TSH, THIRD GENERATION (test code 0.565 UIU/ML = 2821) [id number] 00:00:00 Test Item Value Reference Range Interpretation Comments TSH, THIRD GENERATION (test code 0.379 UIU/ML = 2821) [id number] 00:00:00 Test Item Value Reference Range Interpretation Comments TSH, THIRD GENERATION (test code 0.379 UIU/ML = 2821) [id number] 00:00:00 Test Item Value Reference Range Interpretation Comments TSH, THIRD GENERATION (test code 0.379 UIU/ML = 2821) [id number] 00:00:00 Test Item Value Reference Range Interpretation Comments TSH, THIRD GENERATION (test code 0.379 UIU/ML = 2821) [id number] 00:00:00 Test Item Value Reference Range Interpretation Comments TSH, THIRD GENERATION (test code 0.379 UIU/ML = 2821) [id number] 00:00:00 Test Item Value Reference Range Interpretation Comments TSH, THIRD GENERATION (test code 0.379 UIU/ML = 2821) [id number] 00:00:00 Test Item Value Reference Range Interpretation Comments TSH, THIRD GENERATION (test code 0.379 UIU/ML = 2821) [id number] 00:00:00 Test Item Value Reference Range Interpretation Comments TSH, THIRD GENERATION (test code 0.379 UIU/ML = 2821) [id number] 00:00:00 Test Item Value Reference Range Interpretation Comments TSH, THIRD GENERATION (test code 0.379 UIU/ML = 2821) [id number] 00:00:00 Test Item Value Reference Range Interpretation Comments TSH, THIRD GENERATION (test code 0.379 UIU/ML = 2821) [id number] 00:00:00 Test Item Value Reference Range Interpretation Comments TSH, THIRD GENERATION (test code 0.379 UIU/ML = 2821) CULTURE, [id number] 00:00:00 Test Item Value Reference Range Interpretation Comments CULTURE, URINE (test SPECIMEN NUMBER: code = 83854) [id number] CULTURE, [id number] 00:00:00 Test Item Value Reference Range Interpretation Comments CULTURE, URINE (test SPECIMEN NUMBER: code = 20685) [id number] CULTURE, [id number] 00:00:00 Test Item Value Reference Range Interpretation Comments CULTURE, URINE (test SPECIMEN NUMBER: code = 19645) [id number] CULTURE, [id number] 00:00:00 Test Item Value Reference Range Interpretation Comments CULTURE, URINE (test SPECIMEN NUMBER: code = 68457) [id number] CULTURE, [id number] 00:00:00 Test Item Value Reference Range Interpretation Comments CULTURE, URINE (test SPECIMEN NUMBER: code = 80150) [id number] CULTURE, [id number] 00:00:00 Test Item Value Reference Range Interpretation Comments CULTURE, URINE (test SPECIMEN NUMBER: code = 96361) [id number] CULTURE, [id number] 00:00:00 Test Item Value Reference Range Interpretation Comments CULTURE, URINE (test SPECIMEN NUMBER: code = 06095) [id number] COMPREHENSIVE METABOLIC [id number] 00:00:00 Test Item Value Reference Range Interpretation Comments GLUCOSE (test code = 2217) 128 MG/DL BUN (test code = 2208) 26 MG/DL CREATININE (test code = 2214) 0.92 MG/DL eGFR AMER. (test code 81 ML/MIN/1.73 = 35118) eGFR NON- AMER. (test 70 ML/MIN/1.73 code = 89831) CALC BUN/CREAT (test code = 28 RATIO [...] code = 2219) 29 U/L COMPREHENSIVE METABOLIC [id number] 00:00:00 Test Item Value Reference Range Interpretation Comments GLUCOSE (test code = 2217) 128 MG/DL BUN (test code = 2208) 26 MG/DL CREATININE (test code = 2214) 0.92 MG/DL eGFR AMER. (test code 81 ML/MIN/1.73 = 67700) eGFR NON- AMER. (test 70 ML/MIN/1.73 code = 62815) CALC BUN/CREAT (test code = 28 RATIO [...] code = 2219) 29 U/L ACUTE HEPATITIS [id number] 00:00:00 Test Item Value Reference Range Interpretation Comments HEPATITIS A IgM (test code = NON-REACTIVE 37805) HEPATITIS B CORE IgM (test code NON-REACTIVE = 6815) HEPATITIS B SURF AG (test code = NON-REACTIVE 7718) HEPATITIS C ANTIBODY (test code NON-REACTIVE = 4480) INTERPRETATION HEPATITIS A: (NOTE) (test code = 2552) INTERPRETATION HEPATITIS B: (NOTE) (test code = 11128) INTERPRETATION HEPATITIS C: (NOTE) (test code = 52622) ACUTE HEPATITIS [id number] 00:00:00 Test Item Value Reference Range Interpretation Comments HEPATITIS A IgM (test code = NON-REACTIVE 76722) HEPATITIS B CORE IgM (test code NON-REACTIVE = 4644) HEPATITIS B SURF AG (test code = NON-REACTIVE 8499) HEPATITIS C ANTIBODY (test code NON-REACTIVE = 0025) INTERPRETATION HEPATITIS A: (NOTE) (test code = 2552) INTERPRETATION HEPATITIS B: (NOTE) (test code = 31556) INTERPRETATION HEPATITIS C: (NOTE) (test code = 86075) [id number] 00:00:00 Test Item Value Reference Range Interpretation Comments AMYLASE (test code = 2205) 32 U/L [id number] 00:00:00 Test Item Value Reference Range Interpretation Comments AMYLASE (test code = 2205) 32 U/L [id number] 00:00:00 Test Item Value Reference Range Interpretation Comments LIPASE (test code = 2058) 22 U/L [id number] 00:00:00 Test Item Value Reference Range Interpretation Comments LIPASE (test code = 2058) 22 U/L [id number] 00:00:00 Test Item Value Reference Range Interpretation Comments LIPASE (test code = 2058) 22 U/L COMPREHENSIVE METABOLIC [id number] 00:00:00 Test Item Value Reference Range Interpretation Comments GLUCOSE (test code = 2217) 128 MG/DL BUN (test code = 2208) 26 MG/DL CREATININE (test code = 2214) 0.92 MG/DL eGFR AMER. (test code 81 ML/MIN/1.73 = 37251) eGFR NON- AMER. (test 70 ML/MIN/1.73 code = 16491) CALC BUN/CREAT (test code = 28 RATIO [...] code = 2219) 29 U/L COMPREHENSIVE METABOLIC [id number] 00:00:00 Test Item Value Reference Range Interpretation Comments GLUCOSE (test code = 2217) 128 MG/DL BUN (test code = 2208) 26 MG/DL CREATININE (test code = 2214) 0.92 MG/DL eGFR AMER. (test code 81 ML/MIN/1.73 = 03803) eGFR NON- AMER. (test 70 ML/MIN/1.73 code = 67262) CALC BUN/CREAT (test code = 28 RATIO [...] code = 2219) 29 U/L ACUTE HEPATITIS [id number] 00:00:00 Test Item Value Reference Range Interpretation Comments HEPATITIS A IgM (test code = NON-REACTIVE 23847) HEPATITIS B CORE IgM (test code NON-REACTIVE = 9101) HEPATITIS B SURF AG (test code = NON-REACTIVE 2068) HEPATITIS C ANTIBODY (test code NON-REACTIVE = 3456) INTERPRETATION HEPATITIS A: (NOTE) (test code = 2552) INTERPRETATION HEPATITIS B: (NOTE) (test code = 73205) INTERPRETATION HEPATITIS C: (NOTE) (test code = 47625) ACUTE HEPATITIS [id number] 00:00:00 Test Item Value Reference Range Interpretation Comments HEPATITIS A IgM (test code = NON-REACTIVE 70824) HEPATITIS B CORE IgM (test code NON-REACTIVE = 4644) HEPATITIS B SURF AG (test code = NON-REACTIVE 8919) HEPATITIS C ANTIBODY (test code NON-REACTIVE = 6132) INTERPRETATION HEPATITIS A: (NOTE) (test code = 2552) INTERPRETATION HEPATITIS B: (NOTE) (test code = 35366) INTERPRETATION HEPATITIS C: (NOTE) (test code = 93441) [id number] 00:00:00 Test Item Value Reference Range Interpretation Comments AMYLASE (test code = 2205) 32 U/L [id number] 00:00:00 Test Item Value Reference Range Interpretation Comments AMYLASE (test code = 2205) 32 U/L [id number] 00:00:00 Test Item Value Reference Range Interpretation Comments LIPASE (test code = 2058) 22 U/L [id number] 00:00:00 Test Item Value Reference Range Interpretation Comments LIPASE (test code = 2058) 22 U/L [id number] 00:00:00 Test Item Value Reference Range Interpretation Comments LIPASE (test code = 2058) 22 U/L COMPREHENSIVE METABOLIC [id number] 00:00:00 Test Item Value Reference Range Interpretation Comments GLUCOSE (test code = 2217) 128 MG/DL BUN (test code = 2208) 26 MG/DL CREATININE (test code = 2214) 0.92 MG/DL eGFR AMER. (test code 81 ML/MIN/1.73 = 70131) eGFR NON- AMER. (test 70 ML/MIN/1.73 code = 68871) CALC BUN/CREAT (test code = 28 RATIO [...] code = 2219) 29 U/L ACUTE HEPATITIS [id number] 00:00:00 Test Item Value Reference Range Interpretation Comments HEPATITIS A IgM (test code = NON-REACTIVE 99557) HEPATITIS B CORE IgM (test code NON-REACTIVE = 2854) HEPATITIS B SURF AG (test code = NON-REACTIVE 0409) HEPATITIS C ANTIBODY (test code NON-REACTIVE = 3954) INTERPRETATION HEPATITIS A: (NOTE) (test code = 2552) INTERPRETATION HEPATITIS B: (NOTE) (test code = 71672) INTERPRETATION HEPATITIS C: (NOTE) (test code = 46234) [id number] 00:00:00 Test Item Value Reference Range Interpretation Comments AMYLASE (test code = 2205) 32 U/L [id number] 00:00:00 Test Item Value Reference Range Interpretation Comments LIPASE (test code = 2058) 22 U/L [id number] 00:00:00 Test Item Value Reference Range Interpretation Comments LIPASE (test code = 2058) 22 U/L COMPREHENSIVE METABOLIC [id number] 00:00:00 Test Item Value Reference Range Interpretation Comments GLUCOSE (test code = 2217) 128 MG/DL BUN (test code = 2208) 26 MG/DL CREATININE (test code = 2214) 0.92 MG/DL eGFR AMER. (test code 81 ML/MIN/1.73 = 10641) eGFR NON- AMER. (test 70 ML/MIN/1.73 code = 70137) CALC BUN/CREAT (test code = 28 RATIO [...] code = 2219) 29 U/L COMPREHENSIVE METABOLIC [id number] 00:00:00 Test Item Value Reference Range Interpretation Comments GLUCOSE (test code = 2217) 128 MG/DL BUN (test code = 2208) 26 MG/DL CREATININE (test code = 2214) 0.92 MG/DL eGFR AMER. (test code 81 ML/MIN/1.73 = 29744) eGFR NON- AMER. (test 70 ML/MIN/1.73 code = 44454) CALC BUN/CREAT (test code = 28 RATIO [...] code = 2219) 29 U/L ACUTE HEPATITIS [id number] 00:00:00 Test Item Value Reference Range Interpretation Comments HEPATITIS A IgM (test code = NON-REACTIVE 36701) HEPATITIS B CORE IgM (test code NON-REACTIVE = 2444) HEPATITIS B SURF AG (test code = NON-REACTIVE 7595) HEPATITIS C ANTIBODY (test code NON-REACTIVE = 4666) INTERPRETATION HEPATITIS A: (NOTE) (test code = 2552) INTERPRETATION HEPATITIS B: (NOTE) (test code = 45242) INTERPRETATION HEPATITIS C: (NOTE) (test code = 03314) ACUTE HEPATITIS [id number] 00:00:00 Test Item Value Reference Range Interpretation Comments HEPATITIS A IgM (test code = NON-REACTIVE 38472) HEPATITIS B CORE IgM (test code NON-REACTIVE = 4644) HEPATITIS B SURF AG (test code = NON-REACTIVE 7629) HEPATITIS C ANTIBODY (test code NON-REACTIVE = 4631) INTERPRETATION HEPATITIS A: (NOTE) (test code = 2552) INTERPRETATION HEPATITIS B: (NOTE) (test code = 31732) INTERPRETATION HEPATITIS C: (NOTE) (test code = 95526) [id number] 00:00:00 Test Item Value Reference Range Interpretation Comments AMYLASE (test code = 2205) 32 U/L [id number] 00:00:00 Test Item Value Reference Range Interpretation Comments AMYLASE (test code = 2205) 32 U/L [id number] 00:00:00 Test Item Value Reference Range Interpretation Comments LIPASE (test code = 2058) 22 U/L [id number] 00:00:00 Test Item Value Reference Range Interpretation Comments LIPASE (test code = 2058) 22 U/L [id number] 00:00:00 Test Item Value Reference Range Interpretation Comments LIPASE (test code = 2058) 22 U/L [id number] 00:00:00 Test Item Value Reference Range Interpretation Comments TSH, THIRD GENERATION (test code 4.890 UIU/ML = 2821) [id number] 00:00:00 Test Item Value Reference Range Interpretation Comments TSH, THIRD GENERATION (test code 4.890 UIU/ML = 2821) [id number] 00:00:00 Test Item Value Reference Range Interpretation Comments TSH, THIRD GENERATION (test code 4.890 UIU/ML = 2821) COMPREHENSIVE METABOLIC [id number] 00:00:00 Test Item Value Reference Range Interpretation Comments GLUCOSE (test code = 2217) 121 MG/DL BUN (test code = 2208) 40 MG/DL CREATININE (test code = 2214) 1.48 MG/DL eGFR AMER. (test code 45 ML/MIN/1.73 = 61359) eGFR NON- AMER. (test 39 ML/MIN/1.73 code = 45996) CALC BUN/CREAT (test code = 27 RATIO [...] code = 2219) 20 U/L COMPREHENSIVE METABOLIC [id number] 00:00:00 Test Item Value Reference Range Interpretation Comments GLUCOSE (test code = 2217) 121 MG/DL BUN (test code = 2208) 40 MG/DL CREATININE (test code = 2214) 1.48 MG/DL eGFR AMER. (test code 45 ML/MIN/1.73 = 84521) eGFR NON- AMER. (test 39 ML/MIN/1.73 code = 42923) CALC BUN/CREAT (test code = 27 RATIO [...] ALT (test code = 2219) 20 U/L [id number] 00:00:00 Test Item Value Reference Range Interpretation Comments TSH, THIRD GENERATION (test code 4.890 UIU/ML = 2821) [id number] 00:00:00 Test Item Value Reference Range Interpretation Comments TSH, THIRD GENERATION (test code 4.890 UIU/ML = 2821) [id number] 00:00:00 Test Item Value Reference Range Interpretation Comments TSH, THIRD GENERATION (test code 4.890 UIU/ML = 2821) COMPREHENSIVE METABOLIC [id number] 00:00:00 Test Item Value Reference Range Interpretation Comments GLUCOSE (test code = 2217) 121 MG/DL BUN (test code = 2208) 40 MG/DL CREATININE (test code = 2214) 1.48 MG/DL eGFR AMER. (test code 45 ML/MIN/1.73 = 51009) eGFR NON- AMER. (test 39 ML/MIN/1.73 code = 33621) CALC BUN/CREAT (test code = 27 RATIO [...] code = 2219) 20 U/L COMPREHENSIVE METABOLIC [id number] 00:00:00 Test Item Value Reference Range Interpretation Comments GLUCOSE (test code = 2217) 121 MG/DL BUN (test code = 2208) 40 MG/DL CREATININE (test code = 2214) 1.48 MG/DL eGFR AMER. (test code 45 ML/MIN/1.73 = 28930) eGFR NON- AMER. (test 39 ML/MIN/1.73 code = 15491) CALC BUN/CREAT (test code = 27 RATIO [...] ALT (test code = 2219) 20 U/L [id number] 00:00:00 Test Item Value Reference Range Interpretation Comments TSH, THIRD GENERATION (test code 4.890 UIU/ML = 2821) [id number] 00:00:00 Test Item Value Reference Range Interpretation Comments TSH, THIRD GENERATION (test code 4.890 UIU/ML = 2821) COMPREHENSIVE METABOLIC [id number] 00:00:00 Test Item Value Reference Range Interpretation Comments GLUCOSE (test code = 2217) 121 MG/DL BUN (test code = 2208) 40 MG/DL CREATININE (test code = 2214) 1.48 MG/DL eGFR AMER. (test code 45 ML/MIN/1.73 = 43350) eGFR NON- AMER. (test 39 ML/MIN/1.73 code = 95392) CALC BUN/CREAT (test code = 27 RATIO [...] ALT (test code = 2219) 20 U/L [id number] 00:00:00 Test Item Value Reference Range Interpretation Comments TSH, THIRD GENERATION (test code 4.890 UIU/ML = 2821) [id number] 00:00:00 Test Item Value Reference Range Interpretation Comments TSH, THIRD GENERATION (test code 4.890 UIU/ML = 2821) [id number] 00:00:00 Test Item Value Reference Range Interpretation Comments TSH, THIRD GENERATION (test code 4.890 UIU/ML = 2821) COMPREHENSIVE METABOLIC [id number] 00:00:00 Test Item Value Reference Range Interpretation Comments GLUCOSE (test code = 2217) 121 MG/DL BUN (test code = 2208) 40 MG/DL CREATININE (test code = 2214) 1.48 MG/DL eGFR AMER. (test code 45 ML/MIN/1.73 = 63771) eGFR NON- AMER. (test 39 ML/MIN/1.73 code = 32568) CALC BUN/CREAT (test code = 27 RATIO [...] code = 2219) 20 U/L COMPREHENSIVE METABOLIC [id number] 00:00:00 Test Item Value Reference Range Interpretation Comments GLUCOSE (test code = 2217) 121 MG/DL BUN (test code = 2208) 40 MG/DL CREATININE (test code = 2214) 1.48 MG/DL eGFR AMER. (test code 45 ML/MIN/1.73 = 65339) eGFR NON- AMER. (test 39 ML/MIN/1.73 code = 51594) CALC BUN/CREAT (test code = 27 RATIO [...] (test code = 2219) 20 U/L LIPID [id number] 00:00:00 Test Item Value Reference Range Interpretation Comments CHOLESTEROL (test code = 2210) 261 MG/DL TRIGLYCERIDES (test code = 2232) 165 MG/DL HDL CHOLESTEROL (test code = 2220) 58 MG/DL CALC LDL CHOL (test code = 2237) 170 MG/DL RISK RATIO LDL/HDL (test code = 2.93 RATIO 2238) LIPID [id number] 00:00:00 Test Item Value Reference Range Interpretation Comments CHOLESTEROL (test code = 2210) 261 MG/DL TRIGLYCERIDES (test code = 2232) 165 MG/DL HDL CHOLESTEROL (test code = 2220) 58 MG/DL CALC LDL CHOL (test code = 2237) 170 MG/DL RISK RATIO LDL/HDL (test code = 2.93 RATIO 2238) CBC W/AUTO [id number] 00:00:00 Test Item Value Reference Range Interpretation [...] code = 1015) 378 K/UL CBC W/AUTO [id number] 00:00:00 Test Item Value Reference Range Interpretation [...] code = 1015) 378 K/UL CBC W/AUTO [id number] 00:00:00 Test Item Value Reference Range Interpretation [...] (test code = 1015) 378 K/UL HEMOGLOBIN [id number] 00:00:00 Test Item Value Reference Range Interpretation Comments HEMOGLOBIN A1c (test code = 25006) 6.4 % HEMOGLOBIN [id number] 00:00:00 Test Item Value Reference Range Interpretation Comments HEMOGLOBIN A1c (test code = 88857) 6.4 % HEMOGLOBIN [id number] 00:00:00 Test Item Value Reference Range Interpretation Comments HEMOGLOBIN A1c (test code = 68850) 6.4 % [id number] 00:00:00 Test Item Value Reference Range Interpretation Comments TSH (test code = 2821) 5.290 UIU/ML [id number] 00:00:00 Test Item Value Reference Range Interpretation Comments TSH (test code = 2821) 5.290 UIU/ML [id number] 00:00:00 Test Item Value Reference Range Interpretation Comments TSH (test code = 2821) 5.290 UIU/ML LIPID [id number] 00:00:00 Test Item Value Reference Range Interpretation Comments CHOLESTEROL (test code = 2210) 261 MG/DL TRIGLYCERIDES (test code = 2232) 165 MG/DL HDL CHOLESTEROL (test code = 2220) 58 MG/DL CALC LDL CHOL (test code = 2237) 170 MG/DL RISK RATIO LDL/HDL (test code = 2.93 RATIO 2238) LIPID [id number] 00:00:00 Test Item Value Reference Range Interpretation Comments CHOLESTEROL (test code = 2210) 261 MG/DL TRIGLYCERIDES (test code = 2232) 165 MG/DL HDL CHOLESTEROL (test code = 2220) 58 MG/DL CALC LDL CHOL (test code = 2237) 170 MG/DL RISK RATIO LDL/HDL (test code = 2.93 RATIO 2238) CBC W/AUTO [id number] 00:00:00 Test Item Value Reference Range Interpretation [...] code = 1015) 378 K/UL CBC W/AUTO [id number] 00:00:00 Test Item Value Reference Range Interpretation [...] code = 1015) 378 K/UL CBC W/AUTO [id number] 00:00:00 Test Item Value Reference Range Interpretation [...] (test code = 1015) 378 K/UL HEMOGLOBIN [id number] 00:00:00 Test Item Value Reference Range Interpretation Comments HEMOGLOBIN A1c (test code = 81519) 6.4 % HEMOGLOBIN [id number] 00:00:00 Test Item Value Reference Range Interpretation Comments HEMOGLOBIN A1c (test code = 03326) 6.4 % HEMOGLOBIN [id number] 00:00:00 Test Item Value Reference Range Interpretation Comments HEMOGLOBIN A1c (test code = 70235) 6.4 % [id number] 00:00:00 Test Item Value Reference Range Interpretation Comments TSH (test code = 2821) 5.290 UIU/ML [id number] 00:00:00 Test Item Value Reference Range Interpretation Comments TSH (test code = 2821) 5.290 UIU/ML [id number] 00:00:00 Test Item Value Reference Range Interpretation Comments TSH (test code = 2821) 5.290 UIU/ML LIPID [id number] 00:00:00 Test Item Value Reference Range Interpretation Comments CHOLESTEROL (test code = 2210) 261 MG/DL TRIGLYCERIDES (test code = 2232) 165 MG/DL HDL CHOLESTEROL (test code = 2220) 58 MG/DL CALC LDL CHOL (test code = 2237) 170 MG/DL RISK RATIO LDL/HDL (test code = 2.93 RATIO 2238) CBC W/AUTO [id number] 00:00:00 Test Item Value Reference Range Interpretation [...] code = 1015) 378 K/UL CBC W/AUTO [id number] 00:00:00 Test Item Value Reference Range Interpretation [...] (test code = 1015) 378 K/UL HEMOGLOBIN [id number] 00:00:00 Test Item Value Reference Range Interpretation Comments HEMOGLOBIN A1c (test code = 45750) 6.4 % HEMOGLOBIN [id number] 00:00:00 Test Item Value Reference Range Interpretation Comments HEMOGLOBIN A1c (test code = 94862) 6.4 % [id number] 00:00:00 Test Item Value Reference Range Interpretation Comments TSH (test code = 2821) 5.290 UIU/ML [id number] 00:00:00 Test Item Value Reference Range Interpretation Comments TSH (test code = 2821) 5.290 UIU/ML LIPID [id number] 00:00:00 Test Item Value Reference Range Interpretation Comments CHOLESTEROL (test code = 2210) 261 MG/DL TRIGLYCERIDES (test code = 2232) 165 MG/DL HDL CHOLESTEROL (test code = 2220) 58 MG/DL CALC LDL CHOL (test code = 2237) 170 MG/DL RISK RATIO LDL/HDL (test code = 2.93 RATIO 2238) LIPID [id number] 00:00:00 Test Item Value Reference Range Interpretation Comments CHOLESTEROL (test code = 2210) 261 MG/DL TRIGLYCERIDES (test code = 2232) 165 MG/DL HDL CHOLESTEROL (test code = 2220) 58 MG/DL CALC LDL CHOL (test code = 2237) 170 MG/DL RISK RATIO LDL/HDL (test code = 2.93 RATIO 2238) CBC W/AUTO [id number] 00:00:00 Test Item Value Reference Range Interpretation [...] code = 1015) 378 K/UL CBC W/AUTO [id number] 00:00:00 Test Item Value Reference Range Interpretation [...] code = 1015) 378 K/UL CBC W/AUTO [id number] 00:00:00 Test Item Value Reference Range Interpretation [...] (test code = 1015) 378 K/UL HEMOGLOBIN [id number] 00:00:00 Test Item Value Reference Range Interpretation Comments HEMOGLOBIN A1c (test code = 59620) 6.4 % HEMOGLOBIN [id number] 00:00:00 Test Item Value Reference Range Interpretation Comments HEMOGLOBIN A1c (test code = 27320) 6.4 % HEMOGLOBIN [id number] 00:00:00 Test Item Value Reference Range Interpretation Comments HEMOGLOBIN A1c (test code = 92590) 6.4 % [id number] 00:00:00 Test Item Value Reference Range Interpretation Comments TSH (test code = 2821) 5.290 UIU/ML [id number] 00:00:00 Test Item Value Reference Range Interpretation Comments TSH (test code = 2821) 5.290 UIU/ML [id number] 00:00:00 Test Item Value Reference Range Interpretation [...] code = 2821) 1.030 UIU/ML COMPREHENSIVE METABOLIC [id number] 00:00:00 Test Item Value Reference Range Interpretation Comments GLUCOSE (test code = 2217) 106 MG/DL BUN (test code = 2208) 23 MG/DL CREATININE (test code = 2214) 0.66 MG/DL eGFR AMER. (test code 114 ML/MIN/1.73 = 97174) eGFR NON- AMER. (test 99 ML/MIN/1.73 code = 17994) CALC BUN/CREAT (test code = 35 RATIO [...] code = 2219) 31 U/L COMPREHENSIVE METABOLIC [id number] 00:00:00 Test Item Value Reference Range Interpretation Comments GLUCOSE (test code = 2217) 106 MG/DL BUN (test code = 2208) 23 MG/DL CREATININE (test code = 2214) 0.66 MG/DL eGFR AMER. (test code 114 ML/MIN/1.73 = 68130) eGFR NON- AMER. (test 99 ML/MIN/1.73 code = 92373) CALC BUN/CREAT (test code = 35 RATIO [...] code = 2821) 0.335 UIU/ML COMPREHENSIVE METABOLIC [id number] 00:00:00 Test Item Value Reference Range Interpretation Comments GLUCOSE (test code = 2217) 106 MG/DL BUN (test code = 2208) 23 MG/DL CREATININE (test code = 2214) 0.66 MG/DL eGFR AMER. (test code 114 ML/MIN/1.73 = 73306) eGFR NON- AMER. (test 99 ML/MIN/1.73 code = 19793) CALC BUN/CREAT (test code = 35 RATIO [...] code = 2219) 31 U/L COMPREHENSIVE METABOLIC [id number] 00:00:00 Test Item Value Reference Range Interpretation Comments GLUCOSE (test code = 2217) 106 MG/DL BUN (test code = 2208) 23 MG/DL CREATININE (test code = 2214) 0.66 MG/DL eGFR AMER. (test code 114 ML/MIN/1.73 = 48959) eGFR NON- AMER. (test 99 ML/MIN/1.73 code = 18685) CALC BUN/CREAT (test code = 35 RATIO [...] code = 2821) 0.335 UIU/ML COMPREHENSIVE METABOLIC [id number] 00:00:00 Test Item Value Reference Range Interpretation Comments GLUCOSE (test code = 2217) 106 MG/DL BUN (test code = 2208) 23 MG/DL CREATININE (test code = 2214) 0.66 MG/DL eGFR AMER. (test code 114 ML/MIN/1.73 = 46164) eGFR NON- AMER. (test 99 ML/MIN/1.73 code = 17681) CALC BUN/CREAT (test code = 35 RATIO [...] code = 2821) 0.335 UIU/ML COMPREHENSIVE METABOLIC [id number] 00:00:00 Test Item Value Reference Range Interpretation Comments GLUCOSE (test code = 2217) 106 MG/DL BUN (test code = 2208) 23 MG/DL CREATININE (test code = 2214) 0.66 MG/DL eGFR AMER. (test code 114 ML/MIN/1.73 = 72091) eGFR NON- AMER. (test 99 ML/MIN/1.73 code = 67567) CALC BUN/CREAT (test code = 35 RATIO [...] code = 2219) 31 U/L COMPREHENSIVE METABOLIC [id number] 00:00:00 Test Item Value Reference Range Interpretation Comments GLUCOSE (test code = 2217) 106 MG/DL BUN (test code = 2208) 23 MG/DL CREATININE (test code = 2214) 0.66 MG/DL eGFR AMER. (test code 114 ML/MIN/1.73 = 65849) eGFR NON- AMER. (test 99 ML/MIN/1.73 code = 18160) CALC BUN/CREAT (test code = 35 RATIO [...] CALCULATED T7 (FTI) (test code = 1.71 8630) TSH (test code = 2821) 0.335 UIU/ML THYROID II PROFILE (T3U, T4, T7, [id number] 00:00:00 Test Item Value Reference Range Interpretation Comments T3 UPTAKE (test code = 2817) 31.6 % T4 (THYROXINE) (test code = 5.4 UG/DL 281) CALCULATED T7 (FTI) (test code = 1.71 2820) TSH (test code = 2821) 0.335 UIU/ML COMPREHENSIVE METABOLIC [id number] 00:00:00 Test Item Value Reference Range Interpretation Comments GLUCOSE (test code = 2217) 103 MG/DL BUN (test code = 2208) 15 MG/DL CREATININE (test code = 2214) 0.77 MG/DL eGFR AMER. (test code 101 ML/MIN/1.73 = 45788) eGFR NON- AMER. (test 87 ML/MIN/1.73 code = 41701) CALC BUN/CREAT (test code = 19 RATIO [...] code = 2219) 24 U/L COMPREHENSIVE METABOLIC [id number] 00:00:00 Test Item Value Reference Range Interpretation Comments GLUCOSE (test code = 2217) 103 MG/DL BUN (test code = 2208) 15 MG/DL CREATININE (test code = 2214) 0.77 MG/DL eGFR AMER. (test code 101 ML/MIN/1.73 = 22225) eGFR NON- AMER. (test 87 ML/MIN/1.73 code = 27832) CALC BUN/CREAT (test code = 19 RATIO [...] code = 2821) 0.424 UIU/ML COMPREHENSIVE METABOLIC [id number] 00:00:00 Test Item Value Reference Range Interpretation Comments GLUCOSE (test code = 2217) 103 MG/DL BUN (test code = 2208) 15 MG/DL CREATININE (test code = 2214) 0.77 MG/DL eGFR AMER. (test code 101 ML/MIN/1.73 = 53706) eGFR NON- AMER. (test 87 ML/MIN/1.73 code = 93884) CALC BUN/CREAT (test code = 19 RATIO [...] code = 2219) 24 U/L COMPREHENSIVE METABOLIC [id number] 00:00:00 Test Item Value Reference Range Interpretation Comments GLUCOSE (test code = 2217) 103 MG/DL BUN (test code = 2208) 15 MG/DL CREATININE (test code = 2214) 0.77 MG/DL eGFR AMER. (test code 101 ML/MIN/1.73 = 73207) eGFR NON- AMER. (test 87 ML/MIN/1.73 code = 97276) CALC BUN/CREAT (test code = 19 RATIO [...] code = 2821) 0.424 UIU/ML COMPREHENSIVE METABOLIC [id number] 00:00:00 Test Item Value Reference Range Interpretation Comments GLUCOSE (test code = 2217) 103 MG/DL BUN (test code = 2208) 15 MG/DL CREATININE (test code = 2214) 0.77 MG/DL eGFR AMER. (test code 101 ML/MIN/1.73 = 49177) eGFR NON- AMER. (test 87 ML/MIN/1.73 code = 72360) CALC BUN/CREAT (test code = 19 RATIO [...] code = 2821) 0.424 UIU/ML COMPREHENSIVE METABOLIC [id number] 00:00:00 Test Item Value Reference Range Interpretation Comments GLUCOSE (test code = 2217) 103 MG/DL BUN (test code = 2208) 15 MG/DL CREATININE (test code = 2214) 0.77 MG/DL eGFR AMER. (test code 101 ML/MIN/1.73 = 74202) eGFR NON- AMER. (test 87 ML/MIN/1.73 code = 99419) CALC BUN/CREAT (test code = 19 RATIO [...] code = 2219) 24 U/L COMPREHENSIVE METABOLIC [id number] 00:00:00 Test Item Value Reference Range Interpretation Comments GLUCOSE (test code = 2217) 103 MG/DL BUN (test code = 2208) 15 MG/DL CREATININE (test code = 2214) 0.77 MG/DL eGFR AMER. (test code 101 ML/MIN/1.73 = 90276) eGFR NON- AMER. (test 87 ML/MIN/1.73 code = 47983) CALC BUN/CREAT (test code = 19 RATIO [...] (test code = 2821) 0.424 UIU/ML CULTURE, [id number] 00:00:00 Test Item Value Reference Range Interpretation Comments CULTURE, URINE (test SPECIMEN NUMBER: code = 06886) [id number] CULTURE, [id number] 00:00:00 Test Item Value Reference Range Interpretation Comments CULTURE, URINE (test SPECIMEN NUMBER: code = 64936) [id number] CULTURE, [id number] 00:00:00 Test Item Value Reference Range Interpretation Comments CULTURE, URINE (test SPECIMEN NUMBER: code = 53817) [id number] CULTURE, [id number] 00:00:00 Test Item Value Reference Range Interpretation Comments CULTURE, URINE (test SPECIMEN NUMBER: code = 24410) [id number] CULTURE, [id number] 00:00:00 Test Item Value Reference Range Interpretation Comments CULTURE, URINE (test SPECIMEN NUMBER: code = 97474) [id number] CULTURE, [id number] 00:00:00 Test Item Value Reference Range Interpretation Comments CULTURE, URINE (test SPECIMEN NUMBER: code = 65879) [id number] CULTURE, [id number] 00:00:00 Test Item Value Reference Range Interpretation Comments CULTURE, URINE (test SPECIMEN NUMBER: code = 13853) [id number] CULTURE, [id number] 00:00:00 Test Item Value Reference Range Interpretation Comments CULTURE, URINE (test SPECIMEN NUMBER: code = 38532) [id number] CULTURE, [id number] 00:00:00 Test Item Value Reference Range Interpretation Comments CULTURE, URINE (test SPECIMEN NUMBER: code = 43415) [id number] CULTURE, [id number] 00:00:00 Test Item Value Reference Range Interpretation Comments CULTURE, URINE (test SPECIMEN NUMBER: code = 40542) [id number] CULTURE, [id number] 00:00:00 Test Item Value Reference Range Interpretation Comments CULTURE, URINE (test SPECIMEN NUMBER: code = 58970) [id number] CULTURE, [id number] 00:00:00 Test Item Value Reference Range Interpretation Comments CULTURE, URINE (test SPECIMEN NUMBER: code = 14029) [id number] CULTURE, [id number] 00:00:00 Test Item Value Reference Range Interpretation Comments CULTURE, URINE (test SPECIMEN NUMBER: code = 97712) [id number] CULTURE, [id number] 00:00:00 Test Item Value Reference Range Interpretation Comments CULTURE, URINE (test SPECIMEN NUMBER: code = 80831) [id number]
[2022-05-05] MEDS ORDERED: ONDANSETRON 4 MG/2 ML VIAL ONE (09:16)
[2022-05-05] MEDS ORDERED: FAMOTIDINE 20 MG/2 ML VIAL IV ONE (09:17)
[2022-05-05] MEDS ORDERED: NA CHLORIDE 0.9% 1,000 ML ONE (09:17)
[2022-05-05 09:18] LABS: Absolute Lymphocytes (CBC) 2.5 K/uL (0.7-4.9); Lymphocytes % 25.7 % (15.3-44.8); MCV 92.6 fL (80-100); MPV 6.3 fL (7.6-11.3); RBC Red Blood Cell Count 4.11 M/uL (3.86-4.86)
[2022-05-05] MEDS ORDERED: HALOPERIDOL LACT 5 MG/ML INJ ONE (09:23)
--- NOTE | 2022-05-05 09:33 | RAD REPORT ---
EXAM DESCRIPTION: RAD - Abdomen Acute Series - 05/05/2022 9:25 am CLINICAL HISTORY: ABD PAIN COMPARISON: Chest Single View dated 02/08/2022; Chest Single View dated 12/28/2021; Chest Single View dated 12/26/2021; Chest Single View dated 12/14/2021; Abdomen Pelvis W Contrast dated 05/04/2022 FINDINGS: No acute cardiopulmonary disease. Nonobstructive bowel gas pattern. No acute osseous abnor mality.Visualized lungs are unremarkable.No abnormal calcifications. Surgical changes at the lateral clavicular head. IMPRESSION: Nonobstructive bowel gas pattern. No air-fluid levels or free air. No acute cardiopulmon jocelyne disease.
[2022-05-05 09:38] LABS: Albumin 3.7 g/dL (3.4-5.0); Bilirubin Total 0.2 mg/dL (0.2-1.0); Potassium 4.7 mmol/L (3.5-5.1); Protein, Total 7.6 g/dL (6.4-8.2)
[2022-05-05 09:47] LABS: Urine Blood Trace-intact (Negative); Urine Glucose Negative (Negative); Urine Protein Negative (Negative)
--- NOTE | 2022-05-05 10:05 | ER ---
Nurse's Notes [facility] Name: Jaimie Amanda Age: 61 yrs Sex: Female : 1960 Arrival Date: 05/05/2022 Time: 08:44 Bed 15 Private MD: Diagnosis: Abdominal pain, Generalized;Vomiting Presentation: 05/05 08:50 Chief complaint: Patient states: Patient reports 3 days of upper abdominal pain. sg5 Complains pain 10/10 as sharp. No N/V/D. Afebrile. Did not take morning meds. Coronavirus screen: Vaccine status: Patient reports receiving the 2nd dose of the covid vaccine. At this time, the client does not indicate any symptoms associated with coronavirus-19. Ebola Screen: No symptoms or risks identified at this time. Initial Sepsis Screen: Does the patient meet any 2 criteria? No. Patient's initial sepsis screen is negative. Does the patient have a suspected source of infection? No. Patient's initial sepsis screen is negative. Risk Assessment: Do you want to hurt yourself or someone else? Patient reports no desire to harm self or others. Onset of symptoms was May 02, 2022. 08:50 Method Of Arrival: Ambulatory sg5 08:50 Acuity: ZHEN 3 sg5 Triage Assessment: 08:58 General: Appears distressed, Behavior is cooperative, appropriate for age, restless. sg5 Pain: Complains of pain in upper abdomen Pain currently is 10 out of 10 on a pain scale. Cardiovascular: No deficits noted. Respiratory: No deficits noted. Airway is patent. GI: Abdomen is non-distended, Reports upper abdominal pain. Historical: - Home Meds: 08:58 levothyroxine [Active]; sg5 - PMHx: 08:58 Anxiety; Chronic Abdominal Pain; Hypertensive disorder; Hypothyroidism; low NA; NIDDM; sg5 - PSHx: 08:58 Thyroidectomy; sg5 - Immunization history:: Adult Immunizations up to date, Client reports receiving the 2nd dose of the Covid vaccine, Last tetanus immunization: up to date Flu vaccine is up to date. - Social history:: Smoking status: Patient reports the use of cigarette tobacco products, smokes one-half pack cigarettes per day. Screenin:30 [facility] ED Fall Risk Assessment (Adult) Impaired Gait Yes (1 pt) Mobility Assist ll1 Device Used Yes (1 pt) Score/Fall Risk Level 0 - 2 = Low Risk Oriented to surroundings, Maintained a safe environment, Educated pt \T\ family on fall prevention, incl call for assistance when getting out of bed, Hourly rounding (assess needs \T\ fall precautionary measures) done. Abuse screen: Denies threats or abuse. Nutritional screening: No deficits noted. Tuberculosis screening: No symptoms or risk factors identified. Assessment: 09:30 Reassessment: No changes from previously documented assessment. Patient and/or family ll1 updated on plan of care and expected duration. Pain level reassessed. Patient is alert, oriented x 3, equal unlabored respirations, skin warm/dry/pink. 10:29 GI: Bowel sounds present X 4 quads. Abd is soft and non tender X 4 quads. ll1 Vital Signs: 08:50 BP 219 / 76; Pulse 85; Resp 20; Temp 97.8; Pulse Ox 100% on R/A; Weight 89.81 kg; sg5 Height 5 ft. 8 in. (172.72 cm); Pain 10/10; 09:29 BP 173 / 99; Pulse 84; Resp 24; Pulse Ox 100% on R/A; ll1 10:29 BP 165 / 95; Pulse 85; Resp 20; Pulse Ox 100% ; ll1 08:50 Body Mass Index 30.11 (89.81 kg, 172.72 cm) sg5 ED Course: 08:44 Patient arrived in ED. am2 08:45 Diego Ramirez MD is Attending Physician. hannah 08:57 Mikhail Otero RN is Primary Nurse. 1 08:57 Arm band placed on Patient placed in an exam room, on a stretcher. 1 08:58 Triage completed. sg5 09:05 Inserted saline lock: 22 gauge in right antecubital area, using aseptic technique. ll1 Blood collected. 09:30 Patient has correct armband on for positive identification. Bed in low position. Call ll1 light in reach. Side rails up X2. Client placed on continuous cardiac and pulse oximetry monitoring. NIBP monitoring applied. athletic monitor on. 10:04 Nataliia Flores MD is Referral Physician. hannah 10:21 IV discontinued, intact, bleeding controlled, No redness/swelling at site. Pressure jh5 dressing applied. 10:29 No provider procedures requiring assistance completed. ll1 Administered Medications: 09:04 CANCELLED (Duplicate Order): Haloperidol 2.5 mg/50 mL 2.5 mg IVP once; Place patient on hannah a shelter monitor 09:16 Not Given (not available): Inapsine (droperidol) 1.25 mg IVP once ll1 09:28 Drug: NS 0.9% 1000 ml Route: IV; Rate: 1 bolus; Site: right antecubital; ll1 10:28 Follow up: Response: No adverse reaction; IV Status: Order to discontinue infusion; IV ll1 Intake: 500ml 09:28 Drug: Pepcid (famotidine) 20 mg Route: IVP; Site: right antecubital; ll1 10:28 Follow up: Response: No adverse reaction ll1 09:28 Drug: Zofran (Ondansetron) 4 mg Route: IVP; Site: right antecubital; ll1 10:28 Follow up: Response: No adverse reaction ll1 09:29 Drug: Haloperidol 2.5 mg/50 mL 2.5 mg {Note: RASS +1, pain 10/10.} Route: IVP; Site: ll1 right antecubital; 10:28 Follow up: Response: No adverse reaction ll1 10:12 Drug: Ketorolac 30 mg Route: IVP; Site: right antecubital; ll1 10:28 Follow up: Response: No adverse reaction ll1 10:21 Drug: Phenergan (promethazine) 25 mg Route: IM; Site: right gluteus; jh5 10:29 Follow up: Response: No adverse reaction ll1 Medication: 09:30 VIS not applicable for this client. ll1 Intake: 10:28 IV: 500ml; Total: 500ml. ll1 Outcome: 10:04 Discharge ordered by . hannah 10:21 Discharged to home ambulatory. [facility] 10:21 Condition: good 10:21 Discharge instructions given to patient, Instructed on discharge instructions, follow up and referral plans. medication usage, safety practices, Demonstrated understanding of instructions, follow-up care, medications, Prescriptions given X 3. 10:21 Patient left the ED. [facility] Signatures: Diego Ramirez MD MD cha Moreno, Amanda am2 Mikhail Otero RN RN 1 Sandi Hernandez RN RN 5 Baptiste, Jessica, RN RN sg5
--- NOTE | 2022-05-05 10:05 | EDPHYS ---
Physician Documentation [facility] Name: Jaimie Amanda Age: 61 yrs Sex: Female : 1960 Arrival Date: 05/05/2022 Time: 08:44 Bed 15 Private MD: [place]STA Physician Diego Ramirez HPI: 05/05 09:05 This 61 yrs old Female presents to ER via Ambulatory with complaints of hannah Abdominal Pain, Nausea/Vomiting. 09:05 The patient presents to the emergency department with nausea, vomiting, that is hannah continuous, abdominal pain, of the right upper quadrant, left upper quadrant, right lower quadrant and left lower quadrant. Onset: The symptoms/episode began/occurred 1 day(s) ago. Possible causes: unknown, flare up of bowel problem. The symptoms are aggravated by nothing. The symptoms are alleviated by nothing. Severity of symptoms: At their worst the symptoms were mild in the emergency department the symptoms are unchanged. The patient has not experienced similar symptoms in the past. Historical: - Home Meds: 08:58 levothyroxine [Active]; sg5 - PMHx: 08:58 Anxiety; Chronic Abdominal Pain; Hypertensive disorder; Hypothyroidism; low NA; NIDDM; sg5 - PSHx: 08:58 Thyroidectomy; sg5 - Immunization history:: Adult Immunizations up to date, Client reports receiving the 2nd dose of the Covid vaccine, Last tetanus immunization: up to date Flu vaccine is up to date. - Social history:: Smoking status: Patient reports the use of cigarette tobacco products, smokes one-half pack cigarettes per day. ROS: 09:06 Constitutional: Negative for fever, chills, and weight loss, Eyes: Negative for injury, hannah pain, redness, and discharge, ENT: Negative for injury, pain, and discharge, Neck: Negative for injury, pain, and swelling, Cardiovascular: Negative for chest pain, palpitations, and edema, Respiratory: Negative for shortness of breath, cough, wheezing, and pleuritic chest pain, Back: Negative for injury and pain, : Negative for injury, bleeding, discharge, and swelling, MS/Extremity: Negative for injury and deformity, Neuro: Negative for headache, weakness, numbness, tingling, and seizure, Psych: Negative for depression, anxiety, suicide ideation, homicidal ideation, and hallucinations, Allergy/Immunology: Negative for hives, rash, and allergies, Endocrine: Negative for neck swelling, polydipsia, polyuria, polyphagia, and marked weight changes, Hematologic/Lymphatic: Negative for swollen nodes, abnormal bleeding, and unusual bruising. 09:06 Respiratory: Positive for :06 Abdomen/GI: Positive for abdominal pain, nausea and vomiting, abdominal cramps, abdominal distension, of the right upper quadrant, left upper quadrant, right lower quadrant and left lower quadrant. 09: Skin: Positive for diaphoresis. Exam: : Constitutional: This is a well developed, well nourished patient who is awake, alert, hannah and in no acute distress. Head/Face: Normocephalic, atraumatic. Eyes: Pupils equal round and reactive to light, extra-ocular motions intact. Lids and lashes normal. Conjunctiva and sclera are non-icteric and not injected. Cornea within normal limits. Periorbital areas with no swelling, redness, or edema. ENT: Nares patent. No nasal discharge, no septal abnormalities noted. Tympanic membranes are normal and external auditory canals are clear. Oropharynx with no redness, swelling, or masses, exudates, or evidence of obstruction, uvula midline. Mucous membranes moist. Neck: Trachea midline, no thyromegaly or masses palpated, and no cervical lymphadenopathy. Supple, full range of motion without nuchal rigidity, or vertebral point tenderness. No Meningismus. Chest/axilla: Normal chest wall appearance and motion. Nontender with no deformity. No lesions are appreciated. Cardiovascular: Regular rate and rhythm with a normal S1 and S2. No gallops, murmurs, or rubs. Normal PMI, no JVD. No pulse deficits. Respiratory: Lungs have equal breath sounds bilaterally, clear to auscultation and percussion. No rales, rhonchi or wheezes noted. No increased work of breathing, no retractions or nasal flaring. :44 ECG was reviewed by the Attending Physician. [facility] Vital Signs: 08:50 BP 219 / 76; Pulse 85; Resp 20; Temp 97.8; Pulse Ox 100% on R/A; Weight 89.81 kg; sg5 Height 5 ft. 8 in. (172.72 cm); Pain 10/10; 09:29 BP 173 / 99; Pulse 84; Resp 24; Pulse Ox 100% on R/A; ll1 10:29 BP 165 / 95; Pulse 85; Resp 20; Pulse Ox 100% ; ll1 08:50 Body Mass Index 30.11 (89.81 kg, 172.72 cm) sg5 MDM: 08:45 Patient medically screened. [facility] 09:24 Differential diagnosis: Nonspecific abd pain, gastritis, cholecystitis, pancreatitis, hannah appendicitis, diverticulitis, viral gastroenteritis, gastroenteritis, appendicitis, bowel obstruction, coronary artery disease, Cholelithiasis. Data reviewed: vital signs, nurses notes, lab test result(s), EKG, radiologic studies. Consideration of Admission/Observation Escalation of care including admission/observation considered. Management of patient was discussed with the following: Mobile Sales Assistant: g surgeon. Independent interpretation of the following test(s) in the Emergency Department X-Ray: My interpretation is aas nad. Test considered but Not performed: CT: ct abd pelvis. 05/05 09:04 Order name: CBC with Diff [facility] 05/05 09:04 Order name: CMP [facility] 05/05 09:04 Order name: Lipase [facility] 05/05 09:19 Order name: CBC with Automated Diff; Complete Time: 09:23 [facility] 05/05 09:39 Order name: Comprehensive Metabolic Panel; Complete Time: 09:43 [facility] 05/05 09:04 Order name: Abdomen Acute Series XRAY [facility] 05/05 09:33 Order name: RAD; Complete Time: 09:43 [facility] 05/05 09:39 Order name: Lipase; Complete Time: 09:43 [facility] 05/05 09:47 Order name: Urine Dipstick-Ancillary; Complete Time: 10:03 [facility] 05/05 10:09 Order name: Urine Microscopic Only [facility] 05/05 09:04 Order name: IV Saline Lock; Complete Time: 09:09 [facility] 05/05 09:04 Order name: Labs collected and sent; Complete Time: 09:09 [facility] 05/05 09:04 Order name: Urine Dipstick-Ancillary (obtain specimen); Complete Time: 09:48 [facility] 05/05 09:04 Order name: Urine Test (obtain specimen); Complete Time: 09:48 [facility] 05/05 09:04 Order name: EKG; Complete Time: 09:05 [facility] 05/05 09:04 Order name: EKG - Nurse/Tech; Complete Time: 09:34 [facility] EC:44 Rate is 76 beats/min. Rhythm is regular. QRS Juda is Normal. AR interval is normal. QRS hannah interval is normal. QT interval is normal. No Q waves. T waves are Normal. No ST changes noted. Clinical impression: NSR w/ Non-specific ST/T Changes and No evidence of ischemia. Interpreted by me. Reviewed by me. Administered Medications: 09:04 CANCELLED (Duplicate Order): Haloperidol 2.5 mg/50 mL 2.5 mg IVP once; Place patient on hannah a inoculator 09:16 Not Given (not available): Inapsine (droperidol) 1.25 mg IVP once ll1 09:28 Drug: NS 0.9% 1000 ml Route: IV; Rate: 1 bolus; Site: right antecubital; ll1 10:28 Follow up: Response: No adverse reaction; IV Status: Order to discontinue infusion; IV ll1 Intake: 500ml 09:28 Drug: Pepcid (famotidine) 20 mg Route: IVP; Site: right antecubital; ll1 10:28 Follow up: Response: No adverse reaction ll1 09:28 Drug: Zofran (Ondansetron) 4 mg Route: IVP; Site: right antecubital; ll1 10:28 Follow up: Response: No adverse reaction ll1 09:29 Drug: Haloperidol 2.5 mg/50 mL 2.5 mg {Note: RASS +1, pain 10/10.} Route: IVP; Site: ll1 right antecubital; 10:28 Follow up: Response: No adverse reaction ll1 10:12 Drug: Ketorolac 30 mg Route: IVP; Site: right antecubital; ll1 10:28 Follow up: Response: No adverse reaction ll1 10:21 Drug: Phenergan (promethazine) 25 mg Route: IM; Site: right gluteus; jh5 10:29 Follow up: Response: No adverse reaction ll1 Disposition Summary: 05/05/22 10:04 Discharge Ordered Location: Home hannah Problem: new hannah Symptoms: have improved hannah Condition: Stable hannah Diagnosis - Abdominal pain, Generalized hannah - Vomiting hannah Followup: hannah - With: Private Physician - When: 2 - 3 days - Reason: Recheck today's complaints, Continuance of care, Re-evaluation by your physician Followup: hannah - With: - When: 2 - 3 days - Reason: Recheck today's complaints, Continuance of care, Re-evaluation by your physician Discharge Instructions: - Discharge Summary Sheet hannah - Abdominal Pain, Adult hannah - Abdominal Pain, Adult, [id number] hannah - Nausea and Vomiting, Adult hannah - Nausea and Vomiting, Adult, [id number] hannah Forms: - Medication Reconciliation Form hannah - Thank You Letter hannah - Antibiotic Education hannah - Prescription Opioid Use [facility] Prescriptions: - Pepcid 20 mg Oral Tablet - take 1 tablet by ORAL route every 12 hours for 10 days; 20 tablet; Refills: 0, [facility] Product Selection Permitted - Zofran 4 mg Oral Tablet - take 1 tablet by ORAL route every 12 hours As needed; 20 tablet; Refills: 0, hannah Product Selection Permitted - dicyclomine 20 mg Oral Tablet - take 1 tablet by ORAL route 4 times per day; 28 tablet; Refills: 0, Product hannah Selection Permitted Signatures: Dispatcher [employer] EDDiego Angela MD MD cha Lewis, Lynsay, RN RN ll1 Sandi Hernandez RN RN jh5 Jessica Baptiste RN RN sg5 Corrections: (The following items were deleted from the chart) 09:04 09:04 Haloperidol 2.5 mg/50 mL 2.5 mg IVP once; Place patient on a inoculator hannah ordered. [facility] 09: 09:04 Urine Microscopic+U.LAB.BRZ ordered. EDND EDMS
[2022-05-05 10:09] LABS: Urine Bacteria None Seen /HPF (<20); Urine Mucus Slight /HPF (None Seen)
[2022-05-05] MEDS ORDERED: KETOROLAC 30 MG/ML INJ ONE (10:12)
[2022-05-05] MEDS ORDERED: PROMETHAZINE INJ 25 MG/ML AMP ONE (10:22)
[2022-05-05 10:25] VITALS: TEMP 97.8; O2SAT 100
[2022-05-05 10:27] VITALS: BP 173/99
--- NOTE | 2022-05-05 18:41 | EKG ---
Test Date: 2022-05-05 Test Time: 09:35:00 Pasting Machine Offbearer: KWAME MEASUREMENT RESULTS: Intervals: Rate: 76 [place]: 168 QRSD: 84 QT: 402 QTc: 452 [place]: P: 68 [place]: 168 QRS: 59 T: 67 INTERPRETIVE STATEMENTS: Normal sinus rhythm Normal ECG Compared to ECG 02/20/2022 11:30:47 Sinus bradycardia no longer present Electronically Signed On 05-05-22 18:38:59 [employer] by Brian Booker
== END 2022-05-05 10:21 | disposition home or self-care (01) ==
LOC: ER 08:43
DX: R10.84 Generalized abdominal pain (principal); R11.10 Vomiting, unspecified; I10 Essential (primary) hypertension; E03.9 Hypothyroidism, unspecified
CPT/HCPCS: 93005; 85025; 36415; 83690; 80053; 74022; J1630; J2550; J7030; J2405; 81003; 81015; 96361; 96372; 96374; 96375; 99284

== ENCOUNTER 2022-05-15 18:44 | Emergency (ER) | payer OTHER ==
--- OUTSIDE RECORDS SUMMARY | 2022-05-15 18:56 | XMS REPORT | Continuity of Care Document ---
:1960 Author Organization [facility] t Address [address] [place] [address] [place] [id number] Care Team Providers Name Role Phone Sharpless Primary Care Physician MATT SIMPSON Attending Clinician Unavailable MATT SIMPSON Attending Clinician Unavailable Doctor Unassigned, [place] Attending Clinician Unavailable WALLY KRISHNAMURTHY Attending Clinician Unavailable Natacha Brewster Attending Clinician Payers Payer Name Policy Type Policy Number Effective Date Expiration Date Sarina castelan FORMERLY [facility] [id number] 2017 00:00:00 PLUS Problems This patient has [...] ers OPHEN INGREDI 07-27 ity of 00:00: [place] [facility] Propensi Inactiv Reductas ty to e 2-28 e adverse 00:00: Inhibito reaction 00 rs to drug Nitrogly Propensi Active 2017-03 cerin ty to 1-08 adverse 00:00: reaction 00 to drug Social History Social Habit Start Date Stop Date Quantity Comments Source Alcohol intake 2016-05-01 2016-05-01 Current [facility] es 00:00:00 00:00:00 non-drinker of Medical nter alcohol (finding) Sex Ass[birth year] At [birth year] [facility] 00:00:00 00:00:00 [facility] Smoking Status Start Date Stop Date Source Current every day smoker 2016-05-01 00:00:00 [facility] Medications Ordered Filled Start Stop Current [...] capsule 00:00: 00 OXcarbazepi 2017-0 Yes 600mg Q.[id number] Take [address] ne 2-23 [id number] [facility] (TR[facility]) 10:23: 3D mouth 3 Med ical 600 MG 59 (three) Center tablet times daily. PARoxetine 2017-0 Yes 40mg QD Take [address] (PAXIL) 40 2-23 [facility] tablet 10:23: nightly. [facility] Center OXcarbazepi 2017-0 Yes 600mg Q.56597677 Take [address] ne 2-23 [id number] [facility] (TRILEPTAL) 10:23: 3D mouth 3 Med ical 600 MG 59 (three) Center tablet times daily. PARoxetine 2017-0 Yes 40mg QD Take [address] (PAXIL) 40 2-23 [facility] tablet 10:23: nightly. [address] OXcarbazepi 2017-0 Yes 600mg Q.32361638 Take [address] ne 2-23 [id number] [facility] (TRILEPTAL) 10:23: 3D mouth 3 Med ical 600 MG 59 (three) Center tablet times daily. PARoxetine 2017-0 Yes 40mg QD Take [address] (PAXIL) 40 2-23 [facility] tablet 10:23: nightly. [address] OXcarbazepi 2017-0 Yes 600mg Q.91201842 Take [address] ne 2-23 [id number] [facility] (TRILEPTAL) 10:23: 3D mouth 3 Med ical 600 MG 59 (three) Center tablet times daily. PARoxetine 2017-0 Yes 40mg QD Take [address] (PAXIL) 40 2-23 [facility] tablet 10:23: nightly. [address] OXcarbazepi 2017-0 Yes 600mg Q.24674428 Take [address] ne 2-23 0026066508 [facility] (TRILEPTAL) 10:23: 3D mouth 3 Med ical 600 MG 59 (three) Center tablet times daily. PARoxetine 2017-0 Yes 40mg QD Take [address] (PAXIL) 40 2-23 [facility] tablet 10:23: nightly. [address] OXcarbazepi 2017-0 Yes 600mg Q.49466616 Take [address] ne 2-23 [id number] [facility] (TRILEPTAL) 10:23: 3D mouth 3 Med ical 600 MG 59 (three) Center tablet times daily. OXcarbazepi 2017-0 Yes 600mg Q.20222700 Take [address] ne 2-23 [id number] [facility] (TRILEPTAL) 10:23: 3D mouth 3 Med ical 600 MG 59 (three) Center tablet times daily. PARoxetine 2017-0 Yes 40mg QD Take [address] (PAXIL) 40 2-23 [facility] tablet 10:23: nightly. [address] OXcarbazepi 2017-0 Yes 600mg Q.07599222 Take [address] ne 2-23 [id number] [facility] (TRILEPTAL) 10:23: 3D mouth 3 Med ical 600 MG 59 (three) Center tablet times daily. PARoxetine 2017-0 Yes 40mg QD Take [address] (PAXIL) 40 2-23 [facility] tablet 10:23: nightly. [address] OXcarbazepi 2017-0 Yes 600mg Q.88171109 Take [address] ne 2-23 [id number] [facility] (TRILEPTAL) 10:23: 3D mouth 3 Med ical 600 MG 59 (three) Center tablet times daily. PARoxetine 2017-0 Yes 40mg QD Take [address] (PAXIL) 40 2-23 [facility] tablet 10:23: nightly. [address] OXcarbazepi 2017-0 Yes 600mg Q.78211207 Take [address] ne 2-23 8903210661 [facility] (TRILEPTAL) 10:23: 3D mouth 3 Med ical 600 MG 59 (three) Center tablet times daily. PARoxetine 2017-0 Yes 40mg QD Take [address] (PAXIL) 40 2-23 [facility] tablet 10:23: nightly. [address] PARoxetine 2017-0 Yes 40mg QD Take [address] (PAXIL) 40 2-23 by [facility] tablet 10:23: nightly. [address] OXcarbazepi 2017-0 Yes 600mg Q.85051746 Take [address] ne 2-23 [id number] [facility] (TRILEPTAL) 10:23: 3D mouth 3 Med ical 600 MG 59 (three) Center tablet times daily. PARoxetine 2017-0 Yes 40mg QD Take [address] (PAXIL) 40 2-23 [facility] tablet 10:23: nightly. [facility] anjelica [address] [place] OXcarbazepi 2017-0 Yes 600mg Q.07368510 Take [address] ne 2-23 [id number] mg [facility] (TRILEPTAL) 10:23: 3D mouth 3 Med ical 600 MG 59 (three) Center tablet times daily. PARoxetine 2017-0 Yes 40mg QD Take [address] (PAXIL) 40 2-23 [facility] MG tablet 10:23: nightly. [facility] anjelica [address] [place] OXcarbazepi 2017-0 Yes 600mg Q.58594215 Take [address] ne 2-23 [id number] [facility] (TRILEPTAL) 10:23: 3D mouth 3 Med ical 600 MG 59 (three) Center tablet times daily. PARoxetine 2017-0 Yes 40mg QD Take [address] (PAXIL) 40 2-23 [facility] tablet 10:23: nightly. [facility] [address] [place] OXcarbazepi 2017-0 Yes 600mg Q.48207219 Take [address] ne 2-23 [id number] [facility] (TRILEPTAL) 10:23: 3D mouth 3 Med ical 600 MG 59 (three) Center tablet times daily. PARoxetine 2017-0 Yes 40mg QD Take [address] (PAXIL) 40 2-23 by [facility] tablet 10:23: nightly. [facility] [address] [place] OXcarbazepi 2017-0 Yes 600mg Q.71902502 Take [address] ne 2-23 [id number] [facility] (TRILEPTAL) 10:23: 3D mouth 3 Med ical 600 MG 59 (three) Center tablet times daily. PARoxetine 2017-0 Yes 40mg QD Take [address] (PAXIL) 40 2-23 [facility] tablet 10:23: nightly. [facility] anjelica [address] [place] OXcarbazepi 2017-0 Yes 600mg Q.53399422 Take [address] ne 2-23 [id number] [facility] (TRILEPTAL) 10:23: 3D mouth 3 Med ical 600 MG 59 (three) Center tablet times daily. PARoxetine 2017-0 Yes 40mg QD Take [address] (PAXIL) 40 2-23 [facility] tablet 10:23: nightly. [facility] [address] [place] OXcarbazepi 2017-0 Yes 600mg Q.82954518 Take [address] ne 2-23 [id number] [facility] (TRILEPTAL) 10:23: 3D mouth 3 Med ical 600 MG 59 (three) Center tablet times daily. PARoxetine 2017-0 Yes 40mg QD Take [address] (PAXIL) 40 2-23 [facility] tablet 10:23: nightly. [facility] [address] [place] OXcarbazepi 2017-0 Yes 600mg Q.46364613 Take [address] ne 2-23 [id number] [facility] (TRILEPTAL) 10:23: 3D mouth 3 Med ical 600 MG 59 (three) Center tablet times daily. PARoxetine 2017-0 Yes 40mg QD Take [address] (PAXIL) 40 2-23 [facility] tablet 10:23: nightly. [facility] [address] [place] OXcarbazepi 2017-0 Yes 600mg Q.28490271 Take [address] ne 2-23 [id number] mg [facility] (TRILEPTAL) 10:23: 3D mouth 3 Med ical 600 MG 59 (three) Center tablet times daily. PARoxetine 2017-0 Yes 40mg QD Take [address] (PAXIL) 40 2-23 by [facility] tablet 10:23: nightly. [facility] [address] [place] OXcarbazepi 2017-0 Yes 600mg Q.27487500 Take [address] ne 2-23 [id number] mg [facility] (TRILEPTAL) 10:23: 3D mouth 3 Med ical 600 MG 59 (three) Center tablet times daily. OXcarbazepi 2017-0 Yes 600mg Q.88283115 Take [address] ne 2-23 [id number] mg [facility] (TRILEPTAL) 10:23: 3D mouth 3 Med ical 600 MG 59 (three) Center tablet times daily. PARoxetine 2017-0 Yes 40mg QD Take [address] (PAXIL) 40 2-23 by [facility] tablet 10:23: nightly. [facility] [address] [place] OXcarbazepi 2017-0 Yes 600mg Q.71833800 Take [address] ne 2-23 [id number] mg [facility] (TRILEPTAL) 10:23: 3D mouth 3 Med ical 600 MG 59 (three) Center tablet times daily. PARoxetine 2017-0 Yes 40mg QD Take [address] (PAXIL) 40 2-23 by [facility] tablet 10:23: nightly. [address] OXcarbazepi 2017-0 Yes 600mg Q.64967965 Take [address] ne 2-23 [id number] [facility] (TRILEPTAL) 10:23: 3D mouth 3 Med ical 600 MG 59 (three) Center tablet times daily. PARoxetine 2017-0 Yes 40mg QD Take [address] (PAXIL) 40 2-23 [facility] tablet 10:23: nightly. [address] PARoxetine 2017-0 Yes 40mg QD Take [address] (PAXIL) 40 2-23 by [facility] tablet 10:23: nightly. [address] OXcarbazepi 2017-0 Yes 600mg Q.07067931 Take [address] ne 2-23 [id number] [facility] (TRILEPTAL) 10:23: 3D mouth 3 Med ical 600 MG 59 (three) Center tablet times daily. PARoxetine 2017-0 Yes 40mg QD Take [address] (PAXIL) 40 2-23 by [facility] tablet 10:23: nightly. [address] OXcarbazepi 2017-0 Yes 600mg Q.08701386 Take [address] ne 2-23 [id number] [facility] (TRILEPTAL) 10:23: 3D mouth 3 Med ical 600 MG 59 (three) Center tablet times daily. PARoxetine 2017-0 Yes 40mg QD Take [address] (PAXIL) 40 2-23 [facility] tablet 10:23: nightly. [address] LORazepam 2017-0 Yes 1mg Take 1 [...] Goal Plan of Care Note [code = 24656-8] Goal Plan of Care Note [code = 26931-2] Goal Plan of Care Note [code = 54113-7] Goal Plan of Care Note [code = 06150-2] Goal Plan of Care Note [code = 04898-1] Goal Plan of Care Note [code = 84961-1] Goal Plan of Care Note [code = 39217-2] Goal Plan of Care Note [code = 50044-1] Goal Plan of Care Note [code = 65054-1] Goal Plan of Care Note [code = 05911-2] Goal Plan of Care Note [code = 75385-3] Goal Plan of Care Note [code = 77228-0] Goal Plan of Care Note [code = 39195-2] Goal Plan of Care Note [code = 91271-5] Goal Plan of Care Note [code = 10279-9] Goal Plan of Care Note [code = 09870-6] Goal Plan of Care Note [code = 61114-4] Goal Plan of Care Note [code = 86901-5] Goal Plan of Care Note [code = 93833-1] Goal Plan of Care Note [code = 89607-3] Goal Plan of Care Note [code = 16044-9] Goal Plan of Care Note [code = 32159-3] Goal Plan of Care Note [code = 80956-3] Goal Plan of Care Note [code = 82247-6] Goal Plan of Care Note [code = 89630-4] Goal Plan of Care Note [code = 42645-7] Goal Plan of Care Note [code = 01225-1] Goal Plan of Care Note [code = 53117-3] Goal Plan of Care Note [code = 46666-3] Goal Plan of Care Note [code = 92838-8] Goal Plan of Care Note [code = 82134-9] Goal Plan of Care Note [code = 34022-2] Goal Plan of Care Note [code = 68381-1] Goal Plan of Care Note [code = 35606-4] Goal Plan of Care Note [code = 94499-9] Goal Plan of Care Note [code = 31347-2] Goal Plan of Care Note [code = 81766-8] Goal Plan of Care Note [code = 53702-9] Goal Plan of Care Note [code = 03993-4] Goal Plan of Care Note [code = 17803-6] Goal Plan of Care Note [code = 53159-9] Goal Plan of Care Note [code = 90078-0] Goal Plan of Care Note [code = 22526-2] Goal Plan of Care Note [code = 63116-8] Goal Plan of Care Note [code = 78492-9] Goal Plan of Care Note [code = 88523-1] Goal Plan of Care Note [code = 10373-5] Goal Plan of Care Note [code = 19082-1] Goal Plan of Care Note [code = 65166-1] Goal Plan of Care Note [code = 98444-1] Goal Plan of Care Note [code = 46782-4] Goal Plan of Care Note [code = 11530-1] Goal Plan of Care Note [code = 74510-1] Goal Plan of Care Note [code = 95190-8] Goal Plan of Care Note [code = 01420-7] Goal Plan of Care Note [code = 26831-1] Goal Plan of Care Note [code = 76253-5] Goal Plan of Care Note [code = 67795-9] Goal Plan of Care Note [code = 38098-2] Goal Plan of Care Note [code = 28364-0] Goal Plan of Care Note [code = 08187-6] Goal Plan of Care Note [code = 98798-9] Goal Plan of Care Note [code = 36876-1] Goal Plan of Care Note [code = 33374-2] Goal Plan of Care Note [code = 01493-9] Goal Plan of Care Note [code = 21871-4] Goal Plan of Care Note [code = 83647-0] Goal Plan of Care Note [code = 25154-2] Goal Plan of Care Note [code = 56772-8] Goal Plan of Care Note [code = 71398-3] Goal Plan of Care Note [code = 29310-1] Goal Plan of Care Note [code = 69592-4] Goal Plan of Care Note [code = 50448-8] Goal Plan of Care Note [code = 34583-7] Goal Plan of Care Note [code = 08680-3] Goal Plan of Care Note [code = 00349-8] Goal Plan of Care Note [code = 63993-6] Goal Plan of Care Note [code = 56513-7] Goal Plan of Care Note [code = 46624-1] Goal Plan of Care Note [code = 51284-3] Goal Plan of Care Note [code = 76398-7] Goal Plan of Care Note [code = 52775-8] Goal Plan of Care Note [code = 09941-5] Goal Plan of Care Note [code = 06767-9] Goal Plan of Care Note [code = 69549-0] Goal Plan of Care Note [code = 16520-5] Goal Plan of Care Note [code = 01929-1] Goal Plan of Care Note [code = 39091-7] Goal Plan of Care Note [code = 20833-0] Goal Plan of Care Note [code = 90045-2] Goal Plan of Care Note [code = 81391-7] Goal Plan of Care Note [code = 32074-1] Goal Plan of Care Note [code = 85981-9] Goal Plan of Care Note [code = 49570-1] Goal Plan of Care Note [code = 14483-5] Goal Plan of Care Note [code = 57556-1] Goal Plan of Care Note [code = 17206-4] Goal Plan of Care Note [code = 26195-3] Goal Plan of Care Note [code = 73966-9] Goal Plan of Care Note [code = 07995-4] Goal Plan of Care Note [code = 90719-2] Goal Plan of Care Note [code = 03117-8] Goal Plan of Care Note [code = 21305-8] Goal Plan of Care Note [code = 60986-8] Goal Plan of Care Note [code = 13687-6] Goal Plan of Care Note [code = 06867-7] Goal Plan of Care Note [code = 45137-4] Goal Plan of Care Note [code = 90417-3] Goal Plan of Care Note [code = 89511-4] Goal Plan of Care Note [code = 60234-1] Goal Plan of Care Note [code = 35623-3] Goal Plan of Care Note [code = 33457-8] Goal Plan of Care Note [code = 61774-1] Goal Plan of Care Note [code = 75112-0] Goal Plan of Care Note [code = 69961-6] Goal Plan of Care Note [code = 50425-2] Goal Plan of Care Note [code = 96392-9] Goal Plan of Care Note [code = 32576-9] Goal Plan of Care Note [code = 89004-4] Goal Plan of Care Note [code = 74468-8] Goal Plan of Care Note [code = 72999-6] Goal Plan of Care Note [code = 64365-9] Goal Plan of Care Note [code = 77204-8] Goal Plan of Care Note [code = 42486-7] Goal Plan of Care Note [code = 34072-0] Goal Plan of Care Note [code = 54109-8] Goal Plan of Care Note [code = 67085-8] Goal Plan of Care Note [code = 06648-7] Goal Plan of Care Note [code = 25107-2] Goal Plan of Care Note [code = 34216-0] Goal Plan of Care Note [code = 77835-8] Goal Plan of Care Note [code = 24187-6] Goal Plan of Care Note [code = 01265-2] Goal Plan of Care Note [code = 15774-5] Goal Plan of Care Note [code = 92841-8] Goal Plan of Care Note [code = 32164-9] Goal Plan of Care Note [code = 43235-0] Goal Plan of Care Note [code = 24496-7] Goal Plan of Care Note [code = 96126-1] Goal Plan of Care Note [code = 15047-7] Goal Plan of Care Note [code = 11543-8] Goal Plan of Care Note [code = 94346-7] Goal Plan of Care Note [code = 85119-3] Goal Plan of Care Note [code = 97103-3] Goal Plan of Care Note [code = 30561-9] Goal Plan of Care Note [code = 07617-1] Goal Plan of Care Note [code = 54472-9] Goal Plan of Care Note [code = 67968-9] Goal Plan of Care Note [code = 29757-6] Goal Plan of Care Note [code = 82883-0] Goal Plan of Care Note [code = 42630-4] Goal Plan of Care Note [code = 66347-4] Goal Plan of Care Note [code = 08788-7] Goal Plan of Care Note [code = 23778-3] Goal Plan of Care Note [code = 49001-5] Goal Plan of Care Note [code = 20205-1] Goal Plan of Care Note [code = 55280-6] Goal Plan of Care Note [code = 86303-3] Goal Plan of Care Note [code = 91405-1] Goal Plan of Care Note [code = 65229-4] Goal Plan of Care Note [code = 10810-2] Goal Plan of Care Note [code = 06656-4] Goal Plan of Care Note [code = 07119-7] Goal Plan of Care Note [code = 38027-9] Goal Plan of Care Note [code = 17482-1] Goal Plan of Care Note [code = 12991-9] Goal Plan of Care Note [code = 88583-3] Goal Plan of Care Note [code = 25506-5] Goal Plan of Care Note [code = 98005-8] Goal Plan of Care Note [code = 30185-5] Goal Plan of Care Note [code = 36880-5] Goal Plan of Care Note [code = 03566-6] Goal Plan of Care Note [code = 20145-8] Goal Plan of Care Note [code = 95636-3] Goal Plan of Care Note [code = 08418-5] Goal Plan of Care Note [code = 78710-3] Goal Plan of Care Note [code = 63882-1] Goal Plan of Care Note [code = 75428-0] Goal Plan of Care Note [code = 39095-5] Goal Plan of Care Note [code = 27553-5] Goal Plan of Care Note [code = 78519-0] Goal Plan of Care Note [code = 00048-5] Goal Plan of Care Note [code = 43983-6] Goal Plan of Care Note [code = 11293-2] Goal Plan of Care Note [code = 43418-5] Goal Plan of Care Note [code = 13864-1] Goal Plan of Care Note [code = 27224-7] Goal Plan of Care Note [code = 65291-5] Goal Plan of Care Note [code = 63517-0] Goal Plan of Care Note [code = 35237-4] Goal Plan of Care Note [code = 52254-0] Goal Plan of Care Note [code = 05397-1] Goal Plan of Care Note [code = 41709-8] Goal Plan of Care Note [code = 38258-9] Goal Plan of Care Note [code = 96972-5] Goal Plan of Care Note [code = 29219-0] Goal Plan of Care Note [code = 88359-3] Goal Plan of Care Note [code = 29029-9] Goal Plan of Care Note [code = 29312-6] Goal Plan of Care Note [code = 81169-7] Goal Plan of Care Note [code = 44079-8] Goal Plan of Care Note [code = 23054-7] Goal Plan of Care Note [code = 21512-9] Goal Plan of Care Note [code = 73508-4] Goal Plan of Care Note [code = 27010-6] Goal Plan of Care Note [code = 66490-8] Goal Plan of Care Note [code = 85231-4] Goal Plan of Care Note [code = 86598-4] Encounters Start End Encounter Admission Attending Care Care Encounter Source Date/Time Date/Time Type Type Clinicians Facility Department ID 2021-06-01 Outpatient [facility] [id number] [place] 01:36:29 [id number] [facility] 2022-02-11 2022-02-11 Outpatient SFA SFA [id number] 022 Cristian 09:04:48 09:04:48 1206 F Jerman 2022-02-10 2022-02-10 Outpatient SFA SFA [id number] 022 Cristian 09:29:34 09:29:34 1205 F Jerman 2022-02-10 2022-02-10 Outpatient [id number] [id number] 00:00:00 00:00:00 Visit 4089-4cab 089-4cab-9 -0mk5-a3d bf5-q5b631 456pqpg56 bafa93 2022-01-10 2022-01-10 Outpatient SFA [facility] [id number] 022 Cristian 09:16:14 09:16:14 1104 F Jerman 2022-01-10 2022-01-10 Outpatient [id number]- [id number] accaa6-a 00:00:00 00:00:00 Visit aca9-4c83 ca9-4c83-a -o1yn-ru8 7eb-bc13f3 3t9h290c8 f032f9 2021-12-19 2021-12-19 Outpatient SFA [facility] [id number] 022 Cristian 16:11:31 16:11:31 1013 F Jerman 2021-12-19 2021-12-19 Outpatient [id number] 466cae-[id number] 00:00:00 00:00:00 Visit w239-234i 770-441f-a -adae-62b amelia-62bace wxzuc37md fd81af 2021-09-17 2021-09-17 Outpatient ccj7qwus- [id number] q9vwqc-5 00:00:00 00:00:00 Visit 935a-4f50 35a-4f50-b -c44w-b9p 77d-c2ba85 [id number] [id number] 2020-08-03 2020-08-03 Outpatient MATT VÁSQUEZ [facility] [id number] [facility] 10:00:00 10:00:00 MATT SIMPSON [facility] 2020-07-25 2020-07-25 Orders Doctor FISH [id number] 00:00:00 00:00:00 Only Unassigned, BK 350.1.13.10 [place] [facility] 4.2.7.2.686 [id number] 2019-09-26 2019-09-26 Outpatient Bertin KRISHNAMURTHY [facility] [id number] [facility] 16:00:00 16:00:00 WALLY [facility] 2018-10-21 2018-10-21 Telephone Gramm, [facility] [id number] 00:00:00 00:00:00 Natacha Nguyen 350.1.13.10 [place] 4.2.7.2.686 [place] [id number] [facility] [address] Building Results Test Description Test Time Test Comments Results Result Comments Source TSH, THIRD GENERATION 2021-06-27 05:15:49 Test Item Value Reference Range Interpretation Comme nts TSH, THIRD GENERATION (test code = 2821) 2.080 UIU/ML 0.400-4.100 HEMOGLOBIN [id number] 03:46:00 Test Item Value Reference Range Interpretation Comments HEMOGLOBIN A1c (test 6.6 % 4.2-5.6 H [employer] [employer] [facility] code = 75452) ASSOCIATION IDELINES FOR HGB A1C: PREDIABETES/INC REASED [...] UNLESS OTHERWIS E INDICATED, ALL TESTING PER [facility] ATCLINICAL PATH [facility]IES, [facility]. [address] [place] [address] 99 LABORATORY DIRE CTOR: DIANA RUSS M.D. CLIA NUMBER [id number] [place]. [id number] LIPID [id number] 02:59:52 Test Item Value Reference Range Interpretation [...] MOREINFORMATION , SEE CLIENT ANNOUNCE MENT AT [email or web address] RISK RATIO LDL/HDL 4.02 RATIO <3.22 H (test code = 2238) [id number] 00:00:00 Test Item Value Reference Range Interpretation Comments TSH, THIRD GENERATION (test code 2.080 UIU/ML = 2821) [id number] 00:00:00 Test Item Value Reference Range Interpretation Comments TSH, THIRD GENERATION (test code 2.080 UIU/ML = 2821) [id number] 00:00:00 Test Item Value Reference Range Interpretation Comments TSH, THIRD GENERATION (test code 2.080 UIU/ML = 2821) LIPID [id number] 00:00:00 Test Item Value Reference Range Interpretation Comments CHOLESTEROL (test code = 2210) 292 MG/DL TRIGLYCERIDES (test code = 2232) 184 MG/DL HDL CHOLESTEROL (test code = 2220) 51 MG/DL CALC LDL CHOL (test code = 2237) 205 MG/DL RISK RATIO LDL/HDL (test code = 4.02 RATIO 2238) LIPID [id number] 00:00:00 Test Item Value Reference Range Interpretation Comments CHOLESTEROL (test code = 2210) 292 MG/DL TRIGLYCERIDES (test code = 2232) 184 MG/DL HDL CHOLESTEROL (test code = 2220) 51 MG/DL CALC LDL CHOL (test code = 2237) 205 MG/DL RISK RATIO LDL/HDL (test code = 4.02 RATIO 2238) HEMOGLOBIN [id number] 00:00:00 Test Item Value Reference Range Interpretation Comments HEMOGLOBIN A1c (test code = 89080) 6.6 % HEMOGLOBIN [id number] 00:00:00 Test Item Value Reference Range Interpretation Comments HEMOGLOBIN A1c (test code = 47559) 6.6 % HEMOGLOBIN [id number] 00:00:00 Test Item Value Reference Range Interpretation Comments HEMOGLOBIN A1c (test code = 47110) 6.6 % [id number] 00:00:00 Test Item Value Reference Range Interpretation Comments TSH, THIRD GENERATION (test code 2.080 UIU/ML = 2821) [id number] 00:00:00 Test Item Value Reference Range Interpretation Comments TSH, THIRD GENERATION (test code 2.080 UIU/ML = 2821) [id number] 00:00:00 Test Item Value Reference Range Interpretation Comments TSH, THIRD GENERATION (test code 2.080 UIU/ML = 2821) LIPID [id number] 00:00:00 Test Item Value Reference Range Interpretation Comments CHOLESTEROL (test code = 2210) 292 MG/DL TRIGLYCERIDES (test code = 2232) 184 MG/DL HDL CHOLESTEROL (test code = 2220) 51 MG/DL CALC LDL CHOL (test code = 2237) 205 MG/DL RISK RATIO LDL/HDL (test code = 4.02 RATIO 2238) LIPID [id number] 00:00:00 Test Item Value Reference Range Interpretation Comments CHOLESTEROL (test code = 2210) 292 MG/DL TRIGLYCERIDES (test code = 2232) 184 MG/DL HDL CHOLESTEROL (test code = 2220) 51 MG/DL CALC LDL CHOL (test code = 2237) 205 MG/DL RISK RATIO LDL/HDL (test code = 4.02 RATIO 2238) HEMOGLOBIN [id number] 00:00:00 Test Item Value Reference Range Interpretation Comments HEMOGLOBIN A1c (test code = 64709) 6.6 % HEMOGLOBIN [id number] 00:00:00 Test Item Value Reference Range Interpretation Comments HEMOGLOBIN A1c (test code = 29025) 6.6 % HEMOGLOBIN [id number] 00:00:00 Test Item Value Reference Range Interpretation Comments HEMOGLOBIN A1c (test code = 65633) 6.6 % [id number] 00:00:00 Test Item Value Reference Range Interpretation Comments TSH, THIRD GENERATION (test code 2.080 UIU/ML = 2821) [id number] 00:00:00 Test Item Value Reference Range Interpretation Comments TSH, THIRD GENERATION (test code 2.080 UIU/ML = 2821) LIPID [id number] 00:00:00 Test Item Value Reference Range Interpretation Comments CHOLESTEROL (test code = 2210) 292 MG/DL TRIGLYCERIDES (test code = 2232) 184 MG/DL HDL CHOLESTEROL (test code = 2220) 51 MG/DL CALC LDL CHOL (test code = 2237) 205 MG/DL RISK RATIO LDL/HDL (test code = 4.02 RATIO 2238) HEMOGLOBIN [id number] 00:00:00 Test Item Value Reference Range Interpretation Comments HEMOGLOBIN A1c (test code = 12855) 6.6 % HEMOGLOBIN [id number] 00:00:00 Test Item Value Reference Range Interpretation Comments HEMOGLOBIN A1c (test code = 96260) 6.6 % [id number] 00:00:00 Test Item Value Reference Range Interpretation Comments TSH, THIRD GENERATION (test code 2.080 UIU/ML = 2821) [id number] 00:00:00 Test Item Value Reference Range Interpretation Comments TSH, THIRD GENERATION (test code 2.080 UIU/ML = 2821) [id number] 00:00:00 Test Item Value Reference Range Interpretation Comments TSH, THIRD GENERATION (test code 2.080 UIU/ML = 2821) LIPID [id number] 00:00:00 Test Item Value Reference Range Interpretation Comments CHOLESTEROL (test code = 2210) 292 MG/DL TRIGLYCERIDES (test code = 2232) 184 MG/DL HDL CHOLESTEROL (test code = 2220) 51 MG/DL CALC LDL CHOL (test code = 2237) 205 MG/DL RISK RATIO LDL/HDL (test code = 4.02 RATIO 2238) LIPID [id number] 00:00:00 Test Item Value Reference Range Interpretation Comments CHOLESTEROL (test code = 2210) 292 MG/DL TRIGLYCERIDES (test code = 2232) 184 MG/DL HDL CHOLESTEROL (test code = 2220) 51 MG/DL CALC LDL CHOL (test code = 2237) 205 MG/DL RISK RATIO LDL/HDL (test code = 4.02 RATIO 2238) HEMOGLOBIN [id number] 00:00:00 Test Item Value Reference Range Interpretation Comments HEMOGLOBIN A1c (test code = 27115) 6.6 % HEMOGLOBIN [id number] 00:00:00 Test Item Value Reference Range Interpretation Comments HEMOGLOBIN A1c (test code = 12452) 6.6 % HEMOGLOBIN [id number] 00:00:00 Test Item Value Reference Range Interpretation Comments HEMOGLOBIN A1c (test code = 07224) 6.6 % HEMOGLOBIN [id number] 00:00:00 Test Item Value Reference Range Interpretation Comments HEMOGLOBIN A1c (test code = 52286) 6.8 % HEMOGLOBIN [id number] 00:00:00 Test Item Value Reference Range Interpretation Comments HEMOGLOBIN A1c (test code = 66234) 6.8 % HEMOGLOBIN [id number] 00:00:00 Test Item Value Reference Range Interpretation Comments HEMOGLOBIN A1c (test code = 93382) 6.8 % LIPID [id number] 00:00:00 Test Item Value Reference Range Interpretation Comments CHOLESTEROL (test code = 2210) 303 MG/DL TRIGLYCERIDES (test code = 2232) 191 MG/DL HDL CHOLESTEROL (test code = 2220) 61 MG/DL CALC LDL CHOL (test code = 2237) 205 MG/DL RISK RATIO LDL/HDL (test code = 3.36 RATIO 2238) LIPID [id number] 00:00:00 Test Item Value Reference Range Interpretation Comments CHOLESTEROL (test code = 2210) 303 MG/DL TRIGLYCERIDES (test code = 2232) 191 MG/DL HDL CHOLESTEROL (test code = 2220) 61 MG/DL CALC LDL CHOL (test code = 2237) 205 MG/DL RISK RATIO LDL/HDL (test code = 3.36 RATIO 2238) [id number] 00:00:00 Test Item Value Reference Range Interpretation Comments TSH, THIRD GENERATION (test code 0.769 UIU/ML = 2821) [id number] 00:00:00 Test Item Value Reference Range Interpretation Comments TSH, THIRD GENERATION (test code 0.769 UIU/ML = 2821) [id number] 00:00:00 Test Item Value Reference Range Interpretation Comments TSH, THIRD GENERATION (test code 0.769 UIU/ML = 2821) COMPREHENSIVE METABOLIC [id number] 00:00:00 Test Item Value Reference Range Interpretation Comments GLUCOSE (test code = 2217) 131 MG/DL BUN (test code = 2208) 13 MG/DL CREATININE (test code = 2214) 0.65 MG/DL eGFR AMER. (test code 113 ML/MIN/1.73 = 96444) eGFR NON- AMER. (test 97 ML/MIN/1.73 code = 78846) CALC BUN/CREAT (test code = 20 RATIO [...] code = 2219) 23 U/L COMPREHENSIVE METABOLIC [id number] 00:00:00 Test Item Value Reference Range Interpretation Comments GLUCOSE (test code = 2217) 131 MG/DL BUN (test code = 2208) 13 MG/DL CREATININE (test code = 2214) 0.65 MG/DL eGFR AMER. (test code 113 ML/MIN/1.73 = 05386) eGFR NON- AMER. (test 97 ML/MIN/1.73 code = 61427) CALC BUN/CREAT (test code = 20 RATIO [...] (test code = 2219) 23 U/L HEMOGLOBIN [id number] 00:00:00 Test Item Value Reference Range Interpretation Comments HEMOGLOBIN A1c (test code = 52412) 6.8 % HEMOGLOBIN [id number] 00:00:00 Test Item Value Reference Range Interpretation Comments HEMOGLOBIN A1c (test code = 81317) 6.8 % HEMOGLOBIN [id number] 00:00:00 Test Item Value Reference Range Interpretation Comments HEMOGLOBIN A1c (test code = 85244) 6.8 % LIPID [id number] 00:00:00 Test Item Value Reference Range Interpretation Comments CHOLESTEROL (test code = 2210) 303 MG/DL TRIGLYCERIDES (test code = 2232) 191 MG/DL HDL CHOLESTEROL (test code = 2220) 61 MG/DL CALC LDL CHOL (test code = 2237) 205 MG/DL RISK RATIO LDL/HDL (test code = 3.36 RATIO 2238) LIPID [id number] 00:00:00 Test Item Value Reference Range Interpretation Comments CHOLESTEROL (test code = 2210) 303 MG/DL TRIGLYCERIDES (test code = 2232) 191 MG/DL HDL CHOLESTEROL (test code = 2220) 61 MG/DL CALC LDL CHOL (test code = 2237) 205 MG/DL RISK RATIO LDL/HDL (test code = 3.36 RATIO 2238) [id number] 00:00:00 Test Item Value Reference Range Interpretation Comments TSH, THIRD GENERATION (test code 0.769 UIU/ML = 2821) [id number] 00:00:00 Test Item Value Reference Range Interpretation Comments TSH, THIRD GENERATION (test code 0.769 UIU/ML = 2821) [id number] 00:00:00 Test Item Value Reference Range Interpretation Comments TSH, THIRD GENERATION (test code 0.769 UIU/ML = 2821) COMPREHENSIVE METABOLIC [id number] 00:00:00 Test Item Value Reference Range Interpretation Comments GLUCOSE (test code = 2217) 131 MG/DL BUN (test code = 2208) 13 MG/DL CREATININE (test code = 2214) 0.65 MG/DL eGFR AMER. (test code 113 ML/MIN/1.73 = 59589) eGFR NON- AMER. (test 97 ML/MIN/1.73 code = 33235) CALC BUN/CREAT (test code = 20 RATIO [...] code = 2219) 23 U/L COMPREHENSIVE METABOLIC [id number] 00:00:00 Test Item Value Reference Range Interpretation Comments GLUCOSE (test code = 2217) 131 MG/DL BUN (test code = 2208) 13 MG/DL CREATININE (test code = 2214) 0.65 MG/DL eGFR AMER. (test code 113 ML/MIN/1.73 = 60161) eGFR NON- AMER. (test 97 ML/MIN/1.73 code = 35089) CALC BUN/CREAT (test code = 20 RATIO [...] (test code = 2219) 23 U/L HEMOGLOBIN [id number] 00:00:00 Test Item Value Reference Range Interpretation Comments HEMOGLOBIN A1c (test code = 78678) 6.8 % HEMOGLOBIN [id number] 00:00:00 Test Item Value Reference Range Interpretation Comments HEMOGLOBIN A1c (test code = 47771) 6.8 % LIPID [id number] 00:00:00 Test Item Value Reference Range Interpretation Comments CHOLESTEROL (test code = 2210) 303 MG/DL TRIGLYCERIDES (test code = 2232) 191 MG/DL HDL CHOLESTEROL (test code = 2220) 61 MG/DL CALC LDL CHOL (test code = 2237) 205 MG/DL RISK RATIO LDL/HDL (test code = 3.36 RATIO 2238) [id number] 00:00:00 Test Item Value Reference Range Interpretation Comments TSH, THIRD GENERATION (test code 0.769 UIU/ML = 2821) [id number] 00:00:00 Test Item Value Reference Range Interpretation Comments TSH, THIRD GENERATION (test code 0.769 UIU/ML = 2821) COMPREHENSIVE METABOLIC [id number] 00:00:00 Test Item Value Reference Range Interpretation Comments GLUCOSE (test code = 2217) 131 MG/DL BUN (test code = 2208) 13 MG/DL CREATININE (test code = 2214) 0.65 MG/DL eGFR AMER. (test code 113 ML/MIN/1.73 = 41399) eGFR NON- AMER. (test 97 ML/MIN/1.73 code = 55142) CALC BUN/CREAT (test code = 20 RATIO [...] (test code = 2219) 23 U/L HEMOGLOBIN [id number] 00:00:00 Test Item Value Reference Range Interpretation Comments HEMOGLOBIN A1c (test code = 15669) 6.8 % HEMOGLOBIN [id number] 00:00:00 Test Item Value Reference Range Interpretation Comments HEMOGLOBIN A1c (test code = 39333) 6.8 % HEMOGLOBIN [id number] 00:00:00 Test Item Value Reference Range Interpretation Comments HEMOGLOBIN A1c (test code = 37330) 6.8 % LIPID [id number] 00:00:00 Test Item Value Reference Range Interpretation Comments CHOLESTEROL (test code = 2210) 303 MG/DL TRIGLYCERIDES (test code = 2232) 191 MG/DL HDL CHOLESTEROL (test code = 2220) 61 MG/DL CALC LDL CHOL (test code = 2237) 205 MG/DL RISK RATIO LDL/HDL (test code = 3.36 RATIO 2238) LIPID [id number] 00:00:00 Test Item Value Reference Range Interpretation Comments CHOLESTEROL (test code = 2210) 303 MG/DL TRIGLYCERIDES (test code = 2232) 191 MG/DL HDL CHOLESTEROL (test code = 2220) 61 MG/DL CALC LDL CHOL (test code = 2237) 205 MG/DL RISK RATIO LDL/HDL (test code = 3.36 RATIO 2238) [id number] 00:00:00 Test Item Value Reference Range Interpretation Comments TSH, THIRD GENERATION (test code 0.769 UIU/ML = 2821) [id number] 00:00:00 Test Item Value Reference Range Interpretation Comments TSH, THIRD GENERATION (test code 0.769 UIU/ML = 2821) [id number] 00:00:00 Test Item Value Reference Range Interpretation Comments TSH, THIRD GENERATION (test code 0.769 UIU/ML = 2821) COMPREHENSIVE METABOLIC [id number] 00:00:00 Test Item Value Reference Range Interpretation Comments GLUCOSE (test code = 2217) 131 MG/DL BUN (test code = 2208) 13 MG/DL CREATININE (test code = 2214) 0.65 MG/DL eGFR AMER. (test code 113 ML/MIN/1.73 = 59168) eGFR NON- AMER. (test 97 ML/MIN/1.73 code = 82586) CALC BUN/CREAT (test code = 20 RATIO [...] code = 2219) 23 U/L COMPREHENSIVE METABOLIC [id number] 00:00:00 Test Item Value Reference Range Interpretation Comments GLUCOSE (test code = 2217) 131 MG/DL BUN (test code = 2208) 13 MG/DL CREATININE (test code = 2214) 0.65 MG/DL eGFR AMER. (test code 113 ML/MIN/1.73 = 97588) eGFR NON- AMER. (test 97 ML/MIN/1.73 code = 44596) CALC BUN/CREAT (test code = 20 RATIO [...] (test code = 2219) 23 U/L HEMOGLOBIN [id number] 00:00:00 Test Item Value Reference Range Interpretation Comments HEMOGLOBIN A1c (test code = 49174) 6.6 % HEMOGLOBIN [id number] 00:00:00 Test Item Value Reference Range Interpretation Comments HEMOGLOBIN A1c (test code = 94272) 6.6 % HEMOGLOBIN [id number] 00:00:00 Test Item Value Reference Range Interpretation Comments HEMOGLOBIN A1c (test code = 71399) 6.6 % LIPID [id number] 00:00:00 Test Item Value Reference Range Interpretation Comments CHOLESTEROL (test code = 2210) 261 MG/DL TRIGLYCERIDES (test code = 2232) 159 MG/DL HDL CHOLESTEROL (test code = 2220) 82 MG/DL CALC LDL CHOL (test code = 2237) 150 MG/DL RISK RATIO LDL/HDL (test code = 1.83 RATIO 2238) LIPID [id number] 00:00:00 Test Item Value Reference Range Interpretation Comments CHOLESTEROL (test code = 2210) 261 MG/DL TRIGLYCERIDES (test code = 2232) 159 MG/DL HDL CHOLESTEROL (test code = 2220) 82 MG/DL CALC LDL CHOL (test code = 2237) 150 MG/DL RISK RATIO LDL/HDL (test code = 1.83 RATIO 2238) COMPREHENSIVE METABOLIC [id number] 00:00:00 Test Item Value Reference Range Interpretation Comments GLUCOSE (test code = 2217) 144 MG/DL BUN (test code = 2208) 15 MG/DL CREATININE (test code = 2214) 0.85 MG/DL eGFR AMER. (test code 87 ML/MIN/1.73 = 56558) eGFR NON- AMER. (test 75 ML/MIN/1.73 code = 37575) CALC BUN/CREAT (test code = 18 RATIO [...] code = 2219) 50 U/L COMPREHENSIVE METABOLIC [id number] 00:00:00 Test Item Value Reference Range Interpretation Comments GLUCOSE (test code = 2217) 144 MG/DL BUN (test code = 2208) 15 MG/DL CREATININE (test code = 2214) 0.85 MG/DL eGFR AMER. (test code 87 ML/MIN/1.73 = 34809) eGFR NON- AMER. (test 75 ML/MIN/1.73 code = 41591) CALC BUN/CREAT (test code = 18 RATIO [...] THYROX. BIND. CAPAC. (test code 1.1 = 31655) T4 (THYROXINE) (test code = 4.3 UG/DL 2819) CORRECTED T4 (FTI) (test code = 3.9 UG/DL 2820) TSH, THIRD GENERATION (test 18.900 UIU/ML code = 2821) THYROID II PROFILE (T3U, T4, T7, TSH)[id number] 00:00:00 Test Item Value Reference Range Interpretation Comments T-UPTAKE (test code = 7) 30.2 % THYROX. BIND. CAPAC. (test code 1.1 = 39586) T4 (THYROXINE) (test code = 4.3 UG/DL 2819) CORRECTED T4 (FTI) (test code = 3.9 UG/DL 2820) TSH, THIRD GENERATION (test 18.900 UIU/ML code = 2821) HEMOGLOBIN [id number] 00:00:00 Test Item Value Reference Range Interpretation Comments HEMOGLOBIN A1c (test code = 71788) 6.6 % HEMOGLOBIN [id number] 00:00:00 Test Item Value Reference Range Interpretation Comments HEMOGLOBIN A1c (test code = 50931) 6.6 % HEMOGLOBIN [id number] 00:00:00 Test Item Value Reference Range Interpretation Comments HEMOGLOBIN A1c (test code = 76690) 6.6 % LIPID [id number] 00:00:00 Test Item Value Reference Range Interpretation Comments CHOLESTEROL (test code = 2210) 261 MG/DL TRIGLYCERIDES (test code = 2232) 159 MG/DL HDL CHOLESTEROL (test code = 2220) 82 MG/DL CALC LDL CHOL (test code = 2237) 150 MG/DL RISK RATIO LDL/HDL (test code = 1.83 RATIO 2238) LIPID [id number] 00:00:00 Test Item Value Reference Range Interpretation Comments CHOLESTEROL (test code = 2210) 261 MG/DL TRIGLYCERIDES (test code = 2232) 159 MG/DL HDL CHOLESTEROL (test code = 2220) 82 MG/DL CALC LDL CHOL (test code = 2237) 150 MG/DL RISK RATIO LDL/HDL (test code = 1.83 RATIO 2238) COMPREHENSIVE METABOLIC [id number] 00:00:00 Test Item Value Reference Range Interpretation Comments GLUCOSE (test code = 2217) 144 MG/DL BUN (test code = 2208) 15 MG/DL CREATININE (test code = 2214) 0.85 MG/DL eGFR AMER. (test code 87 ML/MIN/1.73 = 25679) eGFR NON- AMER. (test 75 ML/MIN/1.73 code = 57965) CALC BUN/CREAT (test code = 18 RATIO [...] code = 2219) 50 U/L COMPREHENSIVE METABOLIC [id number] 00:00:00 Test Item Value Reference Range Interpretation Comments GLUCOSE (test code = 2217) 144 MG/DL BUN (test code = 2208) 15 MG/DL CREATININE (test code = 2214) 0.85 MG/DL eGFR AMER. (test code 87 ML/MIN/1.73 = 52160) eGFR NON- AMER. (test 75 ML/MIN/1.73 code = 04626) CALC BUN/CREAT (test code = 18 RATIO [...] THYROX. BIND. CAPAC. (test code 1.1 = 16887) T4 (THYROXINE) (test code = 4.3 UG/DL 281) CORRECTED T4 (FTI) (test code = 3.9 UG/DL 2820) TSH, THIRD GENERATION (test 18.900 UIU/ML code = 2821) THYROID II PROFILE (T3U, T4, T7, TSH)2020-05-23 00:00:00 Test Item Value Reference Range Interpretation Comments T-UPTAKE (test code = 2817) 30.2 % THYROX. BIND. CAPAC. (test code 1.1 = 90062) T4 (THYROXINE) (test code = 4.3 UG/DL 281) CORRECTED T4 (FTI) (test code = 3.9 UG/DL 2820) TSH, THIRD GENERATION (test 18.900 UIU/ML code = 2821) HEMOGLOBIN [id number] 00:00:00 Test Item Value Reference Range Interpretation Comments HEMOGLOBIN A1c (test code = 37274) 6.6 % HEMOGLOBIN [id number] 00:00:00 Test Item Value Reference Range Interpretation Comments HEMOGLOBIN A1c (test code = 32865) 6.6 % LIPID [id number] 00:00:00 Test Item Value Reference Range Interpretation Comments CHOLESTEROL (test code = 2210) 261 MG/DL TRIGLYCERIDES (test code = 2232) 159 MG/DL HDL CHOLESTEROL (test code = 2220) 82 MG/DL CALC LDL CHOL (test code = 2237) 150 MG/DL RISK RATIO LDL/HDL (test code = 1.83 RATIO 2238) COMPREHENSIVE METABOLIC [id number] 00:00:00 Test Item Value Reference Range Interpretation Comments GLUCOSE (test code = 2217) 144 MG/DL BUN (test code = 2208) 15 MG/DL CREATININE (test code = 2214) 0.85 MG/DL eGFR AMER. (test code 87 ML/MIN/1.73 = 63959) eGFR NON- AMER. (test 75 ML/MIN/1.73 code = 78345) CALC BUN/CREAT (test code = 18 RATIO [...] THYROX. BIND. CAPAC. (test code 1.1 = 40562) T4 (THYROXINE) (test code = 4.3 UG/DL 2819) CORRECTED T4 (FTI) (test code = 3.9 UG/DL 2820) TSH, THIRD GENERATION (test 18.900 UIU/ML code = 2821) HEMOGLOBIN [id number] 00:00:00 Test Item Value Reference Range Interpretation Comments HEMOGLOBIN A1c (test code = 55128) 6.6 % HEMOGLOBIN [id number] 00:00:00 Test Item Value Reference Range Interpretation Comments HEMOGLOBIN A1c (test code = 41213) 6.6 % HEMOGLOBIN [id number] 00:00:00 Test Item Value Reference Range Interpretation Comments HEMOGLOBIN A1c (test code = 83788) 6.6 % LIPID [id number] 00:00:00 Test Item Value Reference Range Interpretation Comments CHOLESTEROL (test code = 2210) 261 MG/DL TRIGLYCERIDES (test code = 2232) 159 MG/DL HDL CHOLESTEROL (test code = 2220) 82 MG/DL CALC LDL CHOL (test code = 2237) 150 MG/DL RISK RATIO LDL/HDL (test code = 1.83 RATIO 2238) LIPID [id number] 00:00:00 Test Item Value Reference Range Interpretation Comments CHOLESTEROL (test code = 2210) 261 MG/DL TRIGLYCERIDES (test code = 2232) 159 MG/DL HDL CHOLESTEROL (test code = 2220) 82 MG/DL CALC LDL CHOL (test code = 2237) 150 MG/DL RISK RATIO LDL/HDL (test code = 1.83 RATIO 2238) COMPREHENSIVE METABOLIC [id number] 00:00:00 Test Item Value Reference Range Interpretation Comments GLUCOSE (test code = 2217) 144 MG/DL BUN (test code = 2208) 15 MG/DL CREATININE (test code = 2214) 0.85 MG/DL eGFR AMER. (test code 87 ML/MIN/1.73 = 31043) eGFR NON- AMER. (test 75 ML/MIN/1.73 code = 69764) CALC BUN/CREAT (test code = 18 RATIO [...] code = 2219) 50 U/L COMPREHENSIVE METABOLIC [id number] 00:00:00 Test Item Value Reference Range Interpretation Comments GLUCOSE (test code = 2217) 144 MG/DL BUN (test code = 2208) 15 MG/DL CREATININE (test code = 2214) 0.85 MG/DL eGFR AMER. (test code 87 ML/MIN/1.73 = 87366) eGFR NON- AMER. (test 75 ML/MIN/1.73 code = 33890) CALC BUN/CREAT (test code = 18 RATIO [...] THYROX. BIND. CAPAC. (test code 1.1 = 88897) T4 (THYROXINE) (test code = 4.3 UG/DL 2819) CORRECTED T4 (FTI) (test code = 3.9 UG/DL 2820) TSH, THIRD GENERATION (test 18.900 UIU/ML code = 2821) THYROID II PROFILE (T3U, T4, T7, TSH)2020-05-23 00:00:00 Test Item Value Reference Range Interpretation Comments T-UPTAKE (test code = 2817) 30.2 % THYROX. BIND. CAPAC. (test code 1.1 = 72776) T4 (THYROXINE) (test code = 4.3 UG/DL 2819) CORRECTED T4 (FTI) (test code = 3.9 UG/DL 2820) TSH, THIRD GENERATION (test 18.900 UIU/ML code = 2821) HEMOGLOBIN [id number] 00:00:00 Test Item Value Reference Range Interpretation Comments HEMOGLOBIN A1c (test code = 54466) 6.7 % HEMOGLOBIN [id number] 00:00:00 Test Item Value Reference Range Interpretation Comments HEMOGLOBIN A1c (test code = 66342) 6.7 % HEMOGLOBIN [id number] 00:00:00 Test Item Value Reference Range Interpretation Comments HEMOGLOBIN A1c (test code = 16405) 6.7 % LIPID [id number] 00:00:00 Test Item Value Reference Range Interpretation Comments CHOLESTEROL (test code = 2210) 267 MG/DL TRIGLYCERIDES (test code = 2232) 137 MG/DL HDL CHOLESTEROL (test code = 2220) 48 MG/DL CALC LDL CHOL (test code = 2237) 192 MG/DL RISK RATIO LDL/HDL (test code = 4.00 RATIO 2238) LIPID [id number] 00:00:00 Test Item Value Reference Range Interpretation Comments CHOLESTEROL (test code = 2210) 267 MG/DL TRIGLYCERIDES (test code = 2232) 137 MG/DL HDL CHOLESTEROL (test code = 2220) 48 MG/DL CALC LDL CHOL (test code = 2237) 192 MG/DL RISK RATIO LDL/HDL (test code = 4.00 RATIO 2238) COMPREHENSIVE METABOLIC [id number] 00:00:00 Test Item Value Reference Range Interpretation Comments GLUCOSE (test code = 2217) 155 MG/DL BUN (test code = 2208) 14 MG/DL CREATININE (test code = 2214) 0.52 MG/DL eGFR AMER. (test code 122 ML/MIN/1.73 = 90179) eGFR NON- AMER. (test 105 ML/MIN/1.73 code = 48380) CALC BUN/CREAT (test code = 27 RATIO [...] code = 2219) 27 U/L COMPREHENSIVE METABOLIC [id number] 00:00:00 Test Item Value Reference Range Interpretation Comments GLUCOSE (test code = 2217) 155 MG/DL BUN (test code = 2208) 14 MG/DL CREATININE (test code = 2214) 0.52 MG/DL eGFR AMER. (test code 122 ML/MIN/1.73 = 87705) eGFR NON- AMER. (test 105 ML/MIN/1.73 code = 05224) CALC BUN/CREAT (test code = 27 RATIO [...] THYROX. BIND. CAPAC. (test code 1.0 = 70954) T4 (THYROXINE) (test code = 4.7 UG/DL 2819) CORRECTED T4 (FTI) (test code = 4.7 UG/DL 2820) TSH, THIRD GENERATION (test code 0.201 UIU/ML = 2821) THYROID II PROFILE (T3U, T4, T7, TSH)2019 00:00:00 Test Item Value Reference Range Interpretation Comments T-UPTAKE (test code = 7) 33.1 % THYROX. BIND. CAPAC. (test code 1.0 = 65531) T4 (THYROXINE) (test code = 4.7 UG/DL 2819) CORRECTED T4 (FTI) (test code = 4.7 UG/DL 2820) TSH, THIRD GENERATION (test code 0.201 UIU/ML = 2821) HEMOGLOBIN [id number] 00:00:00 Test Item Value Reference Range Interpretation Comments HEMOGLOBIN A1c (test code = 75293) 6.7 % HEMOGLOBIN [id number] 00:00:00 Test Item Value Reference Range Interpretation Comments HEMOGLOBIN A1c (test code = 01533) 6.7 % HEMOGLOBIN [id number] 00:00:00 Test Item Value Reference Range Interpretation Comments HEMOGLOBIN A1c (test code = 50985) 6.7 % LIPID [id number] 00:00:00 Test Item Value Reference Range Interpretation Comments CHOLESTEROL (test code = 2210) 267 MG/DL TRIGLYCERIDES (test code = 2232) 137 MG/DL HDL CHOLESTEROL (test code = 2220) 48 MG/DL CALC LDL CHOL (test code = 2237) 192 MG/DL RISK RATIO LDL/HDL (test code = 4.00 RATIO 2238) LIPID [id number] 00:00:00 Test Item Value Reference Range Interpretation Comments CHOLESTEROL (test code = 2210) 267 MG/DL TRIGLYCERIDES (test code = 2232) 137 MG/DL HDL CHOLESTEROL (test code = 2220) 48 MG/DL CALC LDL CHOL (test code = 2237) 192 MG/DL RISK RATIO LDL/HDL (test code = 4.00 RATIO 2238) COMPREHENSIVE METABOLIC [id number] 00:00:00 Test Item Value Reference Range Interpretation Comments GLUCOSE (test code = 2217) 155 MG/DL BUN (test code = 2208) 14 MG/DL CREATININE (test code = 2214) 0.52 MG/DL eGFR AMER. (test code 122 ML/MIN/1.73 = 56005) eGFR NON- AMER. (test 105 ML/MIN/1.73 code = 26940) CALC BUN/CREAT (test code = 27 RATIO [...] code = 2219) 27 U/L COMPREHENSIVE METABOLIC [id number] 00:00:00 Test Item Value Reference Range Interpretation Comments GLUCOSE (test code = 2217) 155 MG/DL BUN (test code = 2208) 14 MG/DL CREATININE (test code = 2214) 0.52 MG/DL eGFR AMER. (test code 122 ML/MIN/1.73 = 87450) eGFR NON- AMER. (test 105 ML/MIN/1.73 code = 32928) CALC BUN/CREAT (test code = 27 RATIO [...] 221) 17 U/L ALT (test code = 2219) 27 U/L THYROID II PROFILE (T3U, T4, T7, TSH)2019 00:00:00 Test Item Value Reference Range Interpretation Comments T-UPTAKE (test code = 2816) 33.1 % THYROX. BIND. CAPAC. (test code 1.0 = 10152) T4 (THYROXINE) (test code = 4.7 UG/DL 2819) CORRECTED T4 (FTI) (test code = 4.7 UG/DL 2820) TSH, THIRD GENERATION (test code 0.201 UIU/ML = 2821) THYROID II PROFILE (T3U, T4, T7, TSH)2019 00:00:00 Test Item Value Reference Range Interpretation Comments T-UPTAKE (test code = 2816) 33.1 % THYROX. BIND. CAPAC. (test code 1.0 = 13389) T4 (THYROXINE) (test code = 4.7 UG/DL 2819) CORRECTED T4 (FTI) (test code = 4.7 UG/DL 2820) TSH, THIRD GENERATION (test code 0.201 UIU/ML = 2821) HEMOGLOBIN [id number] 00:00:00 Test Item Value Reference Range Interpretation Comments HEMOGLOBIN A1c (test code = 36343) 6.7 % HEMOGLOBIN [id number] 00:00:00 Test Item Value Reference Range Interpretation Comments HEMOGLOBIN A1c (test code = 53215) 6.7 % LIPID [id number] 00:00:00 Test Item Value Reference Range Interpretation Comments CHOLESTEROL (test code = 2210) 267 MG/DL TRIGLYCERIDES (test code = 2232) 137 MG/DL HDL CHOLESTEROL (test code = 2220) 48 MG/DL CALC LDL CHOL (test code = 2237) 192 MG/DL RISK RATIO LDL/HDL (test code = 4.00 RATIO 2238) COMPREHENSIVE METABOLIC [id number] 00:00:00 Test Item Value Reference Range Interpretation Comments GLUCOSE (test code = 2217) 155 MG/DL BUN (test code = 2208) 14 MG/DL CREATININE (test code = 2214) 0.52 MG/DL eGFR AMER. (test code 122 ML/MIN/1.73 = 98138) eGFR NON- AMER. (test 105 ML/MIN/1.73 code = 23878) CALC BUN/CREAT (test code = 27 RATIO [...] THYROX. BIND. CAPAC. (test code 1.0 = 37076) T4 (THYROXINE) (test code = 4.7 UG/DL 2819) CORRECTED T4 (FTI) (test code = 4.7 UG/DL 2820) TSH, THIRD GENERATION (test code 0.201 UIU/ML = 2821) HEMOGLOBIN [id number] 00:00:00 Test Item Value Reference Range Interpretation Comments HEMOGLOBIN A1c (test code = 59054) 6.7 % HEMOGLOBIN [id number] 00:00:00 Test Item Value Reference Range Interpretation Comments HEMOGLOBIN A1c (test code = 74832) 6.7 % HEMOGLOBIN [id number] 00:00:00 Test Item Value Reference Range Interpretation Comments HEMOGLOBIN A1c (test code = 51759) 6.7 % LIPID [id number] 00:00:00 Test Item Value Reference Range Interpretation Comments CHOLESTEROL (test code = 2210) 267 MG/DL TRIGLYCERIDES (test code = 2232) 137 MG/DL HDL CHOLESTEROL (test code = 2220) 48 MG/DL CALC LDL CHOL (test code = 2237) 192 MG/DL RISK RATIO LDL/HDL (test code = 4.00 RATIO 2238) LIPID [id number] 00:00:00 Test Item Value Reference Range Interpretation Comments CHOLESTEROL (test code = 2210) 267 MG/DL TRIGLYCERIDES (test code = 2232) 137 MG/DL HDL CHOLESTEROL (test code = 2220) 48 MG/DL CALC LDL CHOL (test code = 2237) 192 MG/DL RISK RATIO LDL/HDL (test code = 4.00 RATIO 2238) COMPREHENSIVE METABOLIC [id number] 00:00:00 Test Item Value Reference Range Interpretation Comments GLUCOSE (test code = 2217) 155 MG/DL BUN (test code = 2208) 14 MG/DL CREATININE (test code = 2214) 0.52 MG/DL eGFR AMER. (test code 122 ML/MIN/1.73 = 68272) eGFR NON- AMER. (test 105 ML/MIN/1.73 code = 48099) CALC BUN/CREAT (test code = 27 RATIO [...] code = 2219) 27 U/L COMPREHENSIVE METABOLIC [id number] 00:00:00 Test Item Value Reference Range Interpretation Comments GLUCOSE (test code = 2217) 155 MG/DL BUN (test code = 2208) 14 MG/DL CREATININE (test code = 2214) 0.52 MG/DL eGFR AMER. (test code 122 ML/MIN/1.73 = 58748) eGFR NON- AMER. (test 105 ML/MIN/1.73 code = 10812) CALC BUN/CREAT (test code = 27 RATIO [...] THYROX. BIND. CAPAC. (test code 1.0 = 93302) T4 (THYROXINE) (test code = 4.7 UG/DL 2819) CORRECTED T4 (FTI) (test code = 4.7 UG/DL 2820) TSH, THIRD GENERATION (test code 0.201 UIU/ML = 2821) THYROID II PROFILE (T3U, T4, T7, TSH)2019 00:00:00 Test Item Value Reference Range Interpretation Comments T-UPTAKE (test code = 2817) 33.1 % THYROX. BIND. CAPAC. (test code 1.0 = 18088) T4 (THYROXINE) (test code = 4.7 UG/DL 2819) CORRECTED T4 (FTI) (test code = 4.7 UG/DL 2820) TSH, THIRD GENERATION (test code 0.201 UIU/ML = 2821) SARS-CoV-2 (COVID-19) by RT-PCR (HIGH RISK)2019-09-18 00:00:00 Test Item Value Reference Range Interpretation Comments SARS-CoV-2 INTERPRETATION (test NEGATIVE code = 14015) SOURCE (test code = 66133) NOT SPECIFIED SARS-CoV-2 (COVID-19) by RT-PCR (HIGH RISK)2019-09-18 00:00:00 Test Item Value Reference Range Interpretation Comments SARS-CoV-2 INTERPRETATION (test NEGATIVE code = 39695) SOURCE (test code = 16262) NOT SPECIFIED SARS-CoV-2 (COVID-19) by RT-PCR (HIGH RISK)2019-09-18 00:00:00 Test Item Value Reference Range Interpretation Comments SARS-CoV-2 INTERPRETATION (test NEGATIVE code = 64365) SOURCE (test code = 02816) NOT SPECIFIED SARS-CoV-2 (COVID-19) by RT-PCR (HIGH RISK)2019-09-18 00:00:00 Test Item Value Reference Range Interpretation Comments SARS-CoV-2 INTERPRETATION (test NEGATIVE code = 40749) SOURCE (test code = 95261) NOT SPECIFIED SARS-CoV-2 (COVID-19) by RT-PCR (HIGH RISK)2019-09-18 00:00:00 Test Item Value Reference Range Interpretation Comments SARS-CoV-2 INTERPRETATION (test NEGATIVE code = 77852) SOURCE (test code = 18717) NOT SPECIFIED SARS-CoV-2 (COVID-19) by RT-PCR (HIGH RISK)2019-09-18 00:00:00 Test Item Value Reference Range Interpretation Comments SARS-CoV-2 INTERPRETATION (test NEGATIVE code = 64135) SOURCE (test code = 31675) NOT SPECIFIED SARS-CoV-2 (COVID-19) by RT-PCR (HIGH RISK)2019-09-18 00:00:00 Test Item Value Reference Range Interpretation Comments SARS-CoV-2 INTERPRETATION (test NEGATIVE code = 63690) SOURCE (test code = 66203) NOT SPECIFIED [id number] 00:00:00 Test Item Value Reference Range Interpretation Comments TSH, THIRD GENERATION (test code 2.490 UIU/ML = 2821) [id number] 00:00:00 Test Item Value Reference Range Interpretation Comments TSH, THIRD GENERATION (test code 2.490 UIU/ML = 2821) [id number] 00:00:00 Test Item Value Reference Range Interpretation Comments TSH, THIRD GENERATION (test code 2.490 UIU/ML = 2821) HEMOGLOBIN [id number] 00:00:00 Test Item Value Reference Range Interpretation Comments HEMOGLOBIN A1c (test code = 28169) 6.4 % HEMOGLOBIN [id number] 00:00:00 Test Item Value Reference Range Interpretation Comments HEMOGLOBIN A1c (test code = 06572) 6.4 % HEMOGLOBIN [id number] 00:00:00 Test Item Value Reference Range Interpretation Comments HEMOGLOBIN A1c (test code = 22601) 6.4 % COMPREHENSIVE METABOLIC [id number] 00:00:00 Test Item Value Reference Range Interpretation Comments GLUCOSE (test code = 2217) 206 MG/DL BUN (test code = 2208) 23 MG/DL CREATININE (test code = 2214) 0.67 MG/DL eGFR AMER. (test code 112 ML/MIN/1.73 = 07485) eGFR NON- AMER. (test 97 ML/MIN/1.73 code = 00655) CALC BUN/CREAT (test code = 34 RATIO [...] code = 2219) 25 U/L COMPREHENSIVE METABOLIC [id number] 00:00:00 Test Item Value Reference Range Interpretation Comments GLUCOSE (test code = 2217) 206 MG/DL BUN (test code = 2208) 23 MG/DL CREATININE (test code = 2214) 0.67 MG/DL eGFR AMER. (test code 112 ML/MIN/1.73 = 38913) eGFR NON- AMER. (test 97 ML/MIN/1.73 code = 51554) CALC BUN/CREAT (test code = 34 RATIO [...] ALT (test code = 2219) 25 U/L [id number] 00:00:00 Test Item Value Reference Range Interpretation Comments TSH, THIRD GENERATION (test code 2.490 UIU/ML = 2821) [id number] 00:00:00 Test Item Value Reference Range Interpretation Comments TSH, THIRD GENERATION (test code 2.490 UIU/ML = 2821) [id number] 00:00:00 Test Item Value Reference Range Interpretation Comments TSH, THIRD GENERATION (test code 2.490 UIU/ML = 2821) HEMOGLOBIN [id number] 00:00:00 Test Item Value Reference Range Interpretation Comments HEMOGLOBIN A1c (test code = 71419) 6.4 % HEMOGLOBIN [id number] 00:00:00 Test Item Value Reference Range Interpretation Comments HEMOGLOBIN A1c (test code = 36748) 6.4 % HEMOGLOBIN [id number] 00:00:00 Test Item Value Reference Range Interpretation Comments HEMOGLOBIN A1c (test code = 49405) 6.4 % COMPREHENSIVE METABOLIC [id number] 00:00:00 Test Item Value Reference Range Interpretation Comments GLUCOSE (test code = 2217) 206 MG/DL BUN (test code = 2208) 23 MG/DL CREATININE (test code = 2214) 0.67 MG/DL eGFR AMER. (test code 112 ML/MIN/1.73 = 99598) eGFR NON- AMER. (test 97 ML/MIN/1.73 code = 40730) CALC BUN/CREAT (test code = 34 RATIO [...] code = 2219) 25 U/L COMPREHENSIVE METABOLIC [id number] 00:00:00 Test Item Value Reference Range Interpretation Comments GLUCOSE (test code = 2217) 206 MG/DL BUN (test code = 2208) 23 MG/DL CREATININE (test code = 2214) 0.67 MG/DL eGFR AMER. (test code 112 ML/MIN/1.73 = 92490) eGFR NON- AMER. (test 97 ML/MIN/1.73 code = 85195) CALC BUN/CREAT (test code = 34 RATIO [...] ALT (test code = 2219) 25 U/L [id number] 00:00:00 Test Item Value Reference Range Interpretation Comments TSH, THIRD GENERATION (test code 2.490 UIU/ML = 2821) [id number] 00:00:00 Test Item Value Reference Range Interpretation Comments TSH, THIRD GENERATION (test code 2.490 UIU/ML = 2821) HEMOGLOBIN [id number] 00:00:00 Test Item Value Reference Range Interpretation Comments HEMOGLOBIN A1c (test code = 49141) 6.4 % HEMOGLOBIN [id number] 00:00:00 Test Item Value Reference Range Interpretation Comments HEMOGLOBIN A1c (test code = 37679) 6.4 % COMPREHENSIVE METABOLIC [id number] 00:00:00 Test Item Value Reference Range Interpretation Comments GLUCOSE (test code = 2217) 206 MG/DL BUN (test code = 2208) 23 MG/DL CREATININE (test code = 2214) 0.67 MG/DL eGFR AMER. (test code 112 ML/MIN/1.73 = 26599) eGFR NON- AMER. (test 97 ML/MIN/1.73 code = 83523) CALC BUN/CREAT (test code = 34 RATIO [...] ALT (test code = 2219) 25 U/L [id number] 00:00:00 Test Item Value Reference Range Interpretation Comments TSH, THIRD GENERATION (test code 2.490 UIU/ML = 2821) [id number] 00:00:00 Test Item Value Reference Range Interpretation Comments TSH, THIRD GENERATION (test code 2.490 UIU/ML = 2821) [id number] 00:00:00 Test Item Value Reference Range Interpretation Comments TSH, THIRD GENERATION (test code 2.490 UIU/ML = 2821) HEMOGLOBIN [id number] 00:00:00 Test Item Value Reference Range Interpretation Comments HEMOGLOBIN A1c (test code = 86543) 6.4 % HEMOGLOBIN [id number] 00:00:00 Test Item Value Reference Range Interpretation Comments HEMOGLOBIN A1c (test code = 96729) 6.4 % HEMOGLOBIN [id number] 00:00:00 Test Item Value Reference Range Interpretation Comments HEMOGLOBIN A1c (test code = 99445) 6.4 % COMPREHENSIVE METABOLIC [id number] 00:00:00 Test Item Value Reference Range Interpretation Comments GLUCOSE (test code = 2217) 206 MG/DL BUN (test code = 2208) 23 MG/DL CREATININE (test code = 2214) 0.67 MG/DL eGFR AMER. (test code 112 ML/MIN/1.73 = 65707) eGFR NON- AMER. (test 97 ML/MIN/1.73 code = 11478) CALC BUN/CREAT (test code = 34 RATIO [...] code = 2219) 25 U/L COMPREHENSIVE METABOLIC [id number] 00:00:00 Test Item Value Reference Range Interpretation Comments GLUCOSE (test code = 2217) 206 MG/DL BUN (test code = 2208) 23 MG/DL CREATININE (test code = 2214) 0.67 MG/DL eGFR AMER. (test code 112 ML/MIN/1.73 = 80120) eGFR NON- AMER. (test 97 ML/MIN/1.73 code = 25775) CALC BUN/CREAT (test code = 34 RATIO [...] = 2219) 25 U/L VAGINAL PATHOGENS DNA [id number] 00:00:00 Test Item Value Reference Range Interpretation Comments MARK SPECIES (test code = 99495) NEGATIVE G. VAGINALIS (test code = 45952) NEGATIVE T. VAGINALIS (test code = 93480) NEGATIVE VAGINAL PATHOGENS DNA [id number] 00:00:00 Test Item Value Reference Range Interpretation Comments MARK SPECIES (test code = 55691) NEGATIVE G. VAGINALIS (test code = 84332) NEGATIVE T. VAGINALIS (test code = 61841) NEGATIVE VAGINAL PATHOGENS DNA [id number] 00:00:00 Test Item Value Reference Range Interpretation Comments MARK SPECIES (test code = 67407) NEGATIVE G. VAGINALIS (test code = 55987) NEGATIVE T. VAGINALIS (test code = 58803) NEGATIVE VAGINAL PATHOGENS DNA [id number] 00:00:00 Test Item Value Reference Range Interpretation Comments MARK SPECIES (test code = 15741) NEGATIVE G. VAGINALIS (test code = 56777) NEGATIVE T. VAGINALIS (test code = 07759) NEGATIVE VAGINAL PATHOGENS DNA [id number] 00:00:00 Test Item Value Reference Range Interpretation Comments MARK SPECIES (test code = 73524) NEGATIVE G. VAGINALIS (test code = 83846) NEGATIVE T. VAGINALIS (test code = 81289) NEGATIVE VAGINAL PATHOGENS DNA [id number] 00:00:00 Test Item Value Reference Range Interpretation Comments MARK SPECIES (test code = 07282) NEGATIVE G. VAGINALIS (test code = 94191) NEGATIVE T. VAGINALIS (test code = 29356) NEGATIVE VAGINAL PATHOGENS DNA [id number] 00:00:00 Test Item Value Reference Range Interpretation Comments MARK SPECIES (test code = 35553) NEGATIVE G. VAGINALIS (test code = 90981) NEGATIVE T. VAGINALIS (test code = 87261) NEGATIVE HEMOGLOBIN A1c [ADDED]2018-12-01 00:00:00 Test Item Value Reference Range Interpretation Comments HEMOGLOBIN A1c (test code = 61027) 6.7 % HEMOGLOBIN A1c [ADDED]2018-12-01 00:00:00 Test Item Value Reference Range Interpretation Comments HEMOGLOBIN A1c (test code = 88656) 6.7 % HEMOGLOBIN A1c [ADDED]2018-12-01 00:00:00 Test Item Value Reference Range Interpretation Comments HEMOGLOBIN A1c (test code = 69490) 6.7 % COMPREHENSIVE METABOLIC PANEL [ADDED]2018-12-01 00:00:00 Test Item Value Reference Range Interpretation Comments GLUCOSE (test code = 2217) 136 MG/DL BUN (test code = 2208) 15 MG/DL CREATININE (test code = 2214) 0.64 MG/DL eGFR AMER. (test code 115 ML/MIN/1.73 = 80589) eGFR NON- AMER. (test 99 ML/MIN/1.73 code = 39333) CALC BUN/CREAT (test code = 23 RATIO [...] eGFR AMER. (test code 115 ML/MIN/1.73 = 21116) eGFR NON- AMER. (test 99 ML/MIN/1.73 code = 67547) CALC BUN/CREAT (test code = 23 RATIO [...] Interpretation Comments HEMOGLOBIN A1c (test code = 63474) 6.7 % HEMOGLOBIN A1c [ADDED]2018-12-01 00:00:00 Test Item Value Reference Range Interpretation Comments HEMOGLOBIN A1c (test code = 29690) 6.7 % HEMOGLOBIN A1c [ADDED]2018-12-01 00:00:00 Test Item Value Reference Range Interpretation Comments HEMOGLOBIN A1c (test code = 58580) 6.7 % COMPREHENSIVE METABOLIC PANEL [ADDED]2018-12-01 00:00:00 Test Item Value Reference Range Interpretation Comments GLUCOSE (test code = 2217) 136 MG/DL BUN (test code = 2208) 15 MG/DL CREATININE (test code = 2214) 0.64 MG/DL eGFR AMER. (test code 115 ML/MIN/1.73 = 60901) eGFR NON- AMER. (test 99 ML/MIN/1.73 code = 33158) CALC BUN/CREAT (test code = 23 RATIO [...] eGFR AMER. (test code 115 ML/MIN/1.73 = 84014) eGFR NON- AMER. (test 99 ML/MIN/1.73 code = 91985) CALC BUN/CREAT (test code = 23 RATIO [...] Interpretation Comments HEMOGLOBIN A1c (test code = 22526) 6.7 % HEMOGLOBIN A1c [ADDED]2018-12-01 00:00:00 Test Item Value Reference Range Interpretation Comments HEMOGLOBIN A1c (test code = 86229) 6.7 % COMPREHENSIVE METABOLIC PANEL [ADDED]2018-12-01 00:00:00 Test Item Value Reference Range Interpretation Comments GLUCOSE (test code = 2217) 136 MG/DL BUN (test code = 2208) 15 MG/DL CREATININE (test code = 2214) 0.64 MG/DL eGFR AMER. (test code 115 ML/MIN/1.73 = 47802) eGFR NON- AMER. (test 99 ML/MIN/1.73 code = 23188) CALC BUN/CREAT (test code = 23 RATIO [...] Interpretation Comments HEMOGLOBIN A1c (test code = 92921) 6.7 % HEMOGLOBIN A1c [ADDED]2018-12-01 00:00:00 Test Item Value Reference Range Interpretation Comments HEMOGLOBIN A1c (test code = 44455) 6.7 % HEMOGLOBIN A1c [ADDED]2018-12-01 00:00:00 Test Item Value Reference Range Interpretation Comments HEMOGLOBIN A1c (test code = 01869) 6.7 % COMPREHENSIVE METABOLIC PANEL [ADDED]2018-12-01 00:00:00 Test Item Value Reference Range Interpretation Comments GLUCOSE (test code = 2217) 136 MG/DL BUN (test code = 2208) 15 MG/DL CREATININE (test code = 2214) 0.64 MG/DL eGFR AMER. (test code 115 ML/MIN/1.73 = 37074) eGFR NON- AMER. (test 99 ML/MIN/1.73 code = 46593) CALC BUN/CREAT (test code = 23 RATIO [...] eGFR AMER. (test code 115 ML/MIN/1.73 = 62471) eGFR NON- AMER. (test 99 ML/MIN/1.73 code = 25778) CALC BUN/CREAT (test code = 23 RATIO [...] code 1.280 UIU/ML = 2821) CBC W/AUTO [id number] 00:00:00 Test Item Value Reference Range Interpretation [...] code = 1015) 346 K/UL CBC W/AUTO [id number] 00:00:00 Test Item Value Reference Range Interpretation [...] code = 1015) 346 K/UL CBC W/AUTO [id number] 00:00:00 Test Item Value Reference Range Interpretation [...] (test code = 1015) 346 K/UL HEMOGLOBIN [id number] 00:00:00 Test Item Value Reference Range Interpretation Comments HEMOGLOBIN A1c (test code = 33759) 5.9 % HEMOGLOBIN [id number] 00:00:00 Test Item Value Reference Range Interpretation Comments HEMOGLOBIN A1c (test code = 53764) 5.9 % HEMOGLOBIN [id number] 00:00:00 Test Item Value Reference Range Interpretation Comments HEMOGLOBIN A1c (test code = 06658) 5.9 % LIPID [id number] 00:00:00 Test Item Value Reference Range Interpretation Comments CHOLESTEROL (test code = 2210) 318 MG/DL TRIGLYCERIDES (test code = 2232) 263 MG/DL HDL CHOLESTEROL (test code = 2220) 51 MG/DL CALC LDL CHOL (test code = 2237) 214 MG/DL RISK RATIO LDL/HDL (test code = 4.20 RATIO 2238) LIPID [id number] 00:00:00 Test Item Value Reference Range Interpretation Comments CHOLESTEROL (test code = 2210) 318 MG/DL TRIGLYCERIDES (test code = 2232) 263 MG/DL HDL CHOLESTEROL (test code = 2220) 51 MG/DL CALC LDL CHOL (test code = 2237) 214 MG/DL RISK RATIO LDL/HDL (test code = 4.20 RATIO 2238) COMPREHENSIVE METABOLIC [id number] 00:00:00 Test Item Value Reference Range Interpretation Comments GLUCOSE (test code = 2217) 113 MG/DL BUN (test code = 2208) 18 MG/DL CREATININE (test code = 2214) 0.70 MG/DL eGFR AMER. (test code 111 ML/MIN/1.73 = 75132) eGFR NON- AMER. (test 96 ML/MIN/1.73 code = 72752) CALC BUN/CREAT (test code = 26 RATIO [...] code = 2219) 31 U/L COMPREHENSIVE METABOLIC [id number] 00:00:00 Test Item Value Reference Range Interpretation Comments GLUCOSE (test code = 2217) 113 MG/DL BUN (test code = 2208) 18 MG/DL CREATININE (test code = 2214) 0.70 MG/DL eGFR AMER. (test code 111 ML/MIN/1.73 = 66257) eGFR NON- AMER. (test 96 ML/MIN/1.73 code = 79427) CALC BUN/CREAT (test code = 26 RATIO [...] ALT (test code = 2219) 31 U/L [id number] 00:00:00 Test Item Value Reference Range Interpretation Comments TSH, THIRD GENERATION (test code 2.520 UIU/ML = 2821) [id number] 00:00:00 Test Item Value Reference Range Interpretation Comments TSH, THIRD GENERATION (test code 2.520 UIU/ML = 2821) [id number] 00:00:00 Test Item Value Reference Range Interpretation Comments TSH, THIRD GENERATION (test code 2.520 UIU/ML = 2821) CBC W/AUTO [id number] 00:00:00 Test Item Value Reference Range Interpretation [...] code = 1015) 346 K/UL CBC W/AUTO [id number] 00:00:00 Test Item Value Reference Range Interpretation [...] code = 1015) 346 K/UL CBC W/AUTO [id number] 00:00:00 Test Item Value Reference Range Interpretation [...] (test code = 1015) 346 K/UL HEMOGLOBIN [id number] 00:00:00 Test Item Value Reference Range Interpretation Comments HEMOGLOBIN A1c (test code = 25187) 5.9 % HEMOGLOBIN [id number] 00:00:00 Test Item Value Reference Range Interpretation Comments HEMOGLOBIN A1c (test code = 83292) 5.9 % HEMOGLOBIN [id number] 00:00:00 Test Item Value Reference Range Interpretation Comments HEMOGLOBIN A1c (test code = 30440) 5.9 % LIPID [id number] 00:00:00 Test Item Value Reference Range Interpretation Comments CHOLESTEROL (test code = 2210) 318 MG/DL TRIGLYCERIDES (test code = 2232) 263 MG/DL HDL CHOLESTEROL (test code = 2220) 51 MG/DL CALC LDL CHOL (test code = 2237) 214 MG/DL RISK RATIO LDL/HDL (test code = 4.20 RATIO 2238) LIPID [id number] 00:00:00 Test Item Value Reference Range Interpretation Comments CHOLESTEROL (test code = 2210) 318 MG/DL TRIGLYCERIDES (test code = 2232) 263 MG/DL HDL CHOLESTEROL (test code = 2220) 51 MG/DL CALC LDL CHOL (test code = 2237) 214 MG/DL RISK RATIO LDL/HDL (test code = 4.20 RATIO 2238) COMPREHENSIVE METABOLIC [id number] 00:00:00 Test Item Value Reference Range Interpretation Comments GLUCOSE (test code = 2217) 113 MG/DL BUN (test code = 2208) 18 MG/DL CREATININE (test code = 2214) 0.70 MG/DL eGFR AMER. (test code 111 ML/MIN/1.73 = 78783) eGFR NON- AMER. (test 96 ML/MIN/1.73 code = 55371) CALC BUN/CREAT (test code = 26 RATIO [...] code = 2219) 31 U/L COMPREHENSIVE METABOLIC [id number] 00:00:00 Test Item Value Reference Range Interpretation Comments GLUCOSE (test code = 2217) 113 MG/DL BUN (test code = 2208) 18 MG/DL CREATININE (test code = 2214) 0.70 MG/DL eGFR AMER. (test code 111 ML/MIN/1.73 = 65444) eGFR NON- AMER. (test 96 ML/MIN/1.73 code = 13408) CALC BUN/CREAT (test code = 26 RATIO [...] ALT (test code = 2219) 31 U/L [id number] 00:00:00 Test Item Value Reference Range Interpretation Comments TSH, THIRD GENERATION (test code 2.520 UIU/ML = 2821) [id number] 00:00:00 Test Item Value Reference Range Interpretation Comments TSH, THIRD GENERATION (test code 2.520 UIU/ML = 2821) [id number] 00:00:00 Test Item Value Reference Range Interpretation Comments TSH, THIRD GENERATION (test code 2.520 UIU/ML = 2821) CBC W/AUTO [id number] 00:00:00 Test Item Value Reference Range Interpretation [...] code = 1015) 346 K/UL CBC W/AUTO [id number] 00:00:00 Test Item Value Reference Range Interpretation [...] (test code = 1015) 346 K/UL HEMOGLOBIN [id number] 00:00:00 Test Item Value Reference Range Interpretation Comments HEMOGLOBIN A1c (test code = 83001) 5.9 % HEMOGLOBIN [id number] 00:00:00 Test Item Value Reference Range Interpretation Comments HEMOGLOBIN A1c (test code = 45891) 5.9 % LIPID [id number] 00:00:00 Test Item Value Reference Range Interpretation Comments CHOLESTEROL (test code = 2210) 318 MG/DL TRIGLYCERIDES (test code = 2232) 263 MG/DL HDL CHOLESTEROL (test code = 2220) 51 MG/DL CALC LDL CHOL (test code = 2237) 214 MG/DL RISK RATIO LDL/HDL (test code = 4.20 RATIO 2238) COMPREHENSIVE METABOLIC [id number] 00:00:00 Test Item Value Reference Range Interpretation Comments GLUCOSE (test code = 2217) 113 MG/DL BUN (test code = 2208) 18 MG/DL CREATININE (test code = 2214) 0.70 MG/DL eGFR AMER. (test code 111 ML/MIN/1.73 = 77246) eGFR NON- AMER. (test 96 ML/MIN/1.73 code = 54967) CALC BUN/CREAT (test code = 26 RATIO [...] ALT (test code = 2219) 31 U/L [id number] 00:00:00 Test Item Value Reference Range Interpretation Comments TSH, THIRD GENERATION (test code 2.520 UIU/ML = 2821) [id number] 00:00:00 Test Item Value Reference Range Interpretation Comments TSH, THIRD GENERATION (test code 2.520 UIU/ML = 2821) CBC W/AUTO [id number] 00:00:00 Test Item Value Reference Range Interpretation [...] code = 1015) 346 K/UL CBC W/AUTO [id number] 00:00:00 Test Item Value Reference Range Interpretation [...] code = 1015) 346 K/UL CBC W/AUTO [id number] 00:00:00 Test Item Value Reference Range Interpretation [...] (test code = 1015) 346 K/UL HEMOGLOBIN [id number] 00:00:00 Test Item Value Reference Range Interpretation Comments HEMOGLOBIN A1c (test code = 11758) 5.9 % HEMOGLOBIN [id number] 00:00:00 Test Item Value Reference Range Interpretation Comments HEMOGLOBIN A1c (test code = 32077) 5.9 % HEMOGLOBIN [id number] 00:00:00 Test Item Value Reference Range Interpretation Comments HEMOGLOBIN A1c (test code = 80700) 5.9 % LIPID [id number] 00:00:00 Test Item Value Reference Range Interpretation Comments CHOLESTEROL (test code = 2210) 318 MG/DL TRIGLYCERIDES (test code = 2232) 263 MG/DL HDL CHOLESTEROL (test code = 2220) 51 MG/DL CALC LDL CHOL (test code = 2237) 214 MG/DL RISK RATIO LDL/HDL (test code = 4.20 RATIO 2238) LIPID [id number] 00:00:00 Test Item Value Reference Range Interpretation Comments CHOLESTEROL (test code = 2210) 318 MG/DL TRIGLYCERIDES (test code = 2232) 263 MG/DL HDL CHOLESTEROL (test code = 2220) 51 MG/DL CALC LDL CHOL (test code = 2237) 214 MG/DL RISK RATIO LDL/HDL (test code = 4.20 RATIO 2238) COMPREHENSIVE METABOLIC [id number] 00:00:00 Test Item Value Reference Range Interpretation Comments GLUCOSE (test code = 2217) 113 MG/DL BUN (test code = 2208) 18 MG/DL CREATININE (test code = 2214) 0.70 MG/DL eGFR AMER. (test code 111 ML/MIN/1.73 = 16847) eGFR NON- AMER. (test 96 ML/MIN/1.73 code = 86673) CALC BUN/CREAT (test code = 26 RATIO [...] code = 2219) 31 U/L COMPREHENSIVE METABOLIC [id number] 00:00:00 Test Item Value Reference Range Interpretation Comments GLUCOSE (test code = 2217) 113 MG/DL BUN (test code = 2208) 18 MG/DL CREATININE (test code = 2214) 0.70 MG/DL eGFR AMER. (test code 111 ML/MIN/1.73 = 58473) eGFR NON- AMER. (test 96 ML/MIN/1.73 code = 74849) CALC BUN/CREAT (test code = 26 RATIO [...] 2218) 21 U/L ALT (test code = 221) 31 U/L [id number] 00:00:00 Test Item Value Reference Range Interpretation Comments TSH, THIRD GENERATION (test code 2.520 UIU/ML = 2821) [id number] 00:00:00 Test Item Value Reference Range Interpretation Comments TSH, THIRD GENERATION (test code 2.520 UIU/ML = 2821) [id number] 00:00:00 Test Item Value Reference Range Interpretation Comments TSH, THIRD GENERATION (test code 2.520 UIU/ML = 2821) CULTURE, [id number] 00:00:00 Test Item Value Reference Range Interpretation Comments CULTURE, URINE (test SPECIMEN NUMBER: code = 26093) [id number] CULTURE, [id number] 00:00:00 Test Item Value Reference Range Interpretation Comments CULTURE, URINE (test SPECIMEN NUMBER: code = 07912) [id number] CULTURE, [id number] 00:00:00 Test Item Value Reference Range Interpretation Comments CULTURE, URINE (test SPECIMEN NUMBER: code = 48558) [id number] CULTURE, [id number] 00:00:00 Test Item Value Reference Range Interpretation Comments CULTURE, URINE (test SPECIMEN NUMBER: code = 97981) [id number] CULTURE, [id number] 00:00:00 Test Item Value Reference Range Interpretation Comments CULTURE, URINE (test SPECIMEN NUMBER: code = 41268) [id number] CULTURE, [id number] 00:00:00 Test Item Value Reference Range Interpretation Comments CULTURE, URINE (test SPECIMEN NUMBER: code = 08499) [id number] CULTURE, [id number] 00:00:00 Test Item Value Reference Range Interpretation Comments CULTURE, URINE (test SPECIMEN NUMBER: code = 11251) [id number] CULTURE, [id number] 00:00:00 Test Item Value Reference Range Interpretation Comments CULTURE, URINE (test SPECIMEN NUMBER: code = 47080) [id number] CULTURE, [id number] 00:00:00 Test Item Value Reference Range Interpretation Comments CULTURE, URINE (test SPECIMEN NUMBER: code = 04767) [id number] CULTURE, [id number] 00:00:00 Test Item Value Reference Range Interpretation Comments CULTURE, URINE (test SPECIMEN NUMBER: code = 26312) [id number] CULTURE, [id number] 00:00:00 Test Item Value Reference Range Interpretation Comments CULTURE, URINE (test SPECIMEN NUMBER: code = 60607) [id number] CULTURE, [id number] 00:00:00 Test Item Value Reference Range Interpretation Comments CULTURE, URINE (test SPECIMEN NUMBER: code = 23319) [id number] CULTURE, [id number] 00:00:00 Test Item Value Reference Range Interpretation Comments CULTURE, URINE (test SPECIMEN NUMBER: code = 55864) [id number] CULTURE, [id number] 00:00:00 Test Item Value Reference Range Interpretation Comments CULTURE, URINE (test SPECIMEN NUMBER: code = 98486) [id number] BASIC METABOLIC [id number] 00:00:00 Test Item Value Reference Range Interpretation Comments GLUCOSE (test code = 2217) 135 MG/DL BUN (test code = 2208) 25 MG/DL CREATININE (test code = 2214) 0.76 MG/DL eGFR AMER. (test code 101 ML/MIN/1.73 = 96552) eGFR NON- AMER. (test 87 ML/MIN/1.73 code = 48309) SODIUM (test code = 2231) 139 MEQ/L POTASSIUM (test code = 2228) 4.7 MEQ/L CHLORIDE (test code = 2215) 99 MEQ/L CARBON DIOXIDE (test code = 26 MEQ/L 2206) CALCIUM (test code = 2209) 9.4 MG/DL BASIC METABOLIC [id number] 00:00:00 Test Item Value Reference Range Interpretation Comments GLUCOSE (test code = 2217) 135 MG/DL BUN (test code = 2208) 25 MG/DL CREATININE (test code = 2214) 0.76 MG/DL eGFR AMER. (test code 101 ML/MIN/1.73 = 38969) eGFR NON- AMER. (test 87 ML/MIN/1.73 code = 66018) SODIUM (test code = 2231) 139 MEQ/L POTASSIUM (test code = 2228) 4.7 MEQ/L CHLORIDE (test code = 2215) 99 MEQ/L CARBON DIOXIDE (test code = 26 MEQ/L 2206) CALCIUM (test code = 2209) 9.4 MG/DL LIPID [id number] 00:00:00 Test Item Value Reference Range Interpretation Comments CHOLESTEROL (test code = 2210) 262 MG/DL TRIGLYCERIDES (test code = 2232) 300 MG/DL HDL CHOLESTEROL (test code = 2220) 36 MG/DL CALC LDL CHOL (test code = 2237) 166 MG/DL RISK RATIO LDL/HDL (test code = 4.61 RATIO 2238) LIPID [id number] 00:00:00 Test Item Value Reference Range Interpretation Comments CHOLESTEROL (test code = 2210) 262 MG/DL TRIGLYCERIDES (test code = 2232) 300 MG/DL HDL CHOLESTEROL (test code = 2220) 36 MG/DL CALC LDL CHOL (test code = 2237) 166 MG/DL RISK RATIO LDL/HDL (test code = 4.61 RATIO 2238) HEMOGLOBIN [id number] 00:00:00 Test Item Value Reference Range Interpretation Comments HEMOGLOBIN A1c (test code = 09434) 6.2 % HEMOGLOBIN [id number] 00:00:00 Test Item Value Reference Range Interpretation Comments HEMOGLOBIN A1c (test code = 26957) 6.2 % HEMOGLOBIN [id number] 00:00:00 Test Item Value Reference Range Interpretation Comments HEMOGLOBIN A1c (test code = 91185) 6.2 % [id number] 00:00:00 Test Item Value Reference Range Interpretation Comments TSH, THIRD GENERATION (test code 0.988 UIU/ML = 2821) [id number] 00:00:00 Test Item Value Reference Range Interpretation Comments TSH, THIRD GENERATION (test code 0.988 UIU/ML = 2821) [id number] 00:00:00 Test Item Value Reference Range Interpretation Comments TSH, THIRD GENERATION (test code 0.988 UIU/ML = 2821) BASIC METABOLIC [id number] 00:00:00 Test Item Value Reference Range Interpretation Comments GLUCOSE (test code = 2217) 135 MG/DL BUN (test code = 2208) 25 MG/DL CREATININE (test code = 2214) 0.76 MG/DL eGFR AMER. (test code 101 ML/MIN/1.73 = 24792) eGFR NON- AMER. (test 87 ML/MIN/1.73 code = 49339) SODIUM (test code = 2231) 139 MEQ/L POTASSIUM (test code = 2228) 4.7 MEQ/L CHLORIDE (test code = 2215) 99 MEQ/L CARBON DIOXIDE (test code = 26 MEQ/L 2206) CALCIUM (test code = 2209) 9.4 MG/DL BASIC METABOLIC [id number] 00:00:00 Test Item Value Reference Range Interpretation Comments GLUCOSE (test code = 2217) 135 MG/DL BUN (test code = 2208) 25 MG/DL CREATININE (test code = 2214) 0.76 MG/DL eGFR AMER. (test code 101 ML/MIN/1.73 = 80861) eGFR NON- AMER. (test 87 ML/MIN/1.73 code = 32456) SODIUM (test code = 2231) 139 MEQ/L POTASSIUM (test code = 2228) 4.7 MEQ/L CHLORIDE (test code = 2215) 99 MEQ/L CARBON DIOXIDE (test code = 26 MEQ/L 2206) CALCIUM (test code = 2209) 9.4 MG/DL LIPID [id number] 00:00:00 Test Item Value Reference Range Interpretation Comments CHOLESTEROL (test code = 2210) 262 MG/DL TRIGLYCERIDES (test code = 2232) 300 MG/DL HDL CHOLESTEROL (test code = 2220) 36 MG/DL CALC LDL CHOL (test code = 2237) 166 MG/DL RISK RATIO LDL/HDL (test code = 4.61 RATIO 2238) LIPID [id number] 00:00:00 Test Item Value Reference Range Interpretation Comments CHOLESTEROL (test code = 2210) 262 MG/DL TRIGLYCERIDES (test code = 2232) 300 MG/DL HDL CHOLESTEROL (test code = 2220) 36 MG/DL CALC LDL CHOL (test code = 2237) 166 MG/DL RISK RATIO LDL/HDL (test code = 4.61 RATIO 2238) HEMOGLOBIN [id number] 00:00:00 Test Item Value Reference Range Interpretation Comments HEMOGLOBIN A1c (test code = 75415) 6.2 % HEMOGLOBIN [id number] 00:00:00 Test Item Value Reference Range Interpretation Comments HEMOGLOBIN A1c (test code = 32695) 6.2 % HEMOGLOBIN [id number] 00:00:00 Test Item Value Reference Range Interpretation Comments HEMOGLOBIN A1c (test code = 33992) 6.2 % [id number] 00:00:00 Test Item Value Reference Range Interpretation Comments TSH, THIRD GENERATION (test code 0.988 UIU/ML = 2821) [id number] 00:00:00 Test Item Value Reference Range Interpretation Comments TSH, THIRD GENERATION (test code 0.988 UIU/ML = 2821) [id number] 00:00:00 Test Item Value Reference Range Interpretation Comments TSH, THIRD GENERATION (test code 0.988 UIU/ML = 2821) BASIC METABOLIC [id number] 00:00:00 Test Item Value Reference Range Interpretation Comments GLUCOSE (test code = 2217) 135 MG/DL BUN (test code = 2208) 25 MG/DL CREATININE (test code = 2214) 0.76 MG/DL eGFR AMER. (test code 101 ML/MIN/1.73 = 36237) eGFR NON- AMER. (test 87 ML/MIN/1.73 code = 08614) SODIUM (test code = 2231) 139 MEQ/L POTASSIUM (test code = 2228) 4.7 MEQ/L CHLORIDE (test code = 2215) 99 MEQ/L CARBON DIOXIDE (test code = 26 MEQ/L 2206) CALCIUM (test code = 2209) 9.4 MG/DL LIPID [id number] 00:00:00 Test Item Value Reference Range Interpretation Comments CHOLESTEROL (test code = 2210) 262 MG/DL TRIGLYCERIDES (test code = 2232) 300 MG/DL HDL CHOLESTEROL (test code = 2220) 36 MG/DL CALC LDL CHOL (test code = 2237) 166 MG/DL RISK RATIO LDL/HDL (test code = 4.61 RATIO 2238) HEMOGLOBIN [id number] 00:00:00 Test Item Value Reference Range Interpretation Comments HEMOGLOBIN A1c (test code = 89768) 6.2 % HEMOGLOBIN [id number] 00:00:00 Test Item Value Reference Range Interpretation Comments HEMOGLOBIN A1c (test code = 94281) 6.2 % [id number] 00:00:00 Test Item Value Reference Range Interpretation Comments TSH, THIRD GENERATION (test code 0.988 UIU/ML = 2821) [id number] 00:00:00 Test Item Value Reference Range Interpretation Comments TSH, THIRD GENERATION (test code 0.988 UIU/ML = 2821) BASIC METABOLIC [id number] 00:00:00 Test Item Value Reference Range Interpretation Comments GLUCOSE (test code = 2217) 135 MG/DL BUN (test code = 2208) 25 MG/DL CREATININE (test code = 2214) 0.76 MG/DL eGFR AMER. (test code 101 ML/MIN/1.73 = 99301) eGFR NON- AMER. (test 87 ML/MIN/1.73 code = 98988) SODIUM (test code = 2231) 139 MEQ/L POTASSIUM (test code = 2228) 4.7 MEQ/L CHLORIDE (test code = 2215) 99 MEQ/L CARBON DIOXIDE (test code = 26 MEQ/L 2206) CALCIUM (test code = 2209) 9.4 MG/DL BASIC METABOLIC [id number] 00:00:00 Test Item Value Reference Range Interpretation Comments GLUCOSE (test code = 2217) 135 MG/DL BUN (test code = 2208) 25 MG/DL CREATININE (test code = 2214) 0.76 MG/DL eGFR AMER. (test code 101 ML/MIN/1.73 = 65552) eGFR NON- AMER. (test 87 ML/MIN/1.73 code = 41938) SODIUM (test code = 2231) 139 MEQ/L POTASSIUM (test code = 2228) 4.7 MEQ/L CHLORIDE (test code = 2215) 99 MEQ/L CARBON DIOXIDE (test code = 26 MEQ/L 2206) CALCIUM (test code = 2209) 9.4 MG/DL LIPID [id number] 00:00:00 Test Item Value Reference Range Interpretation Comments CHOLESTEROL (test code = 2210) 262 MG/DL TRIGLYCERIDES (test code = 2232) 300 MG/DL HDL CHOLESTEROL (test code = 2220) 36 MG/DL CALC LDL CHOL (test code = 2237) 166 MG/DL RISK RATIO LDL/HDL (test code = 4.61 RATIO 2238) LIPID [id number] 00:00:00 Test Item Value Reference Range Interpretation Comments CHOLESTEROL (test code = 2210) 262 MG/DL TRIGLYCERIDES (test code = 2232) 300 MG/DL HDL CHOLESTEROL (test code = 2220) 36 MG/DL CALC LDL CHOL (test code = 2237) 166 MG/DL RISK RATIO LDL/HDL (test code = 4.61 RATIO 2238) HEMOGLOBIN [id number] 00:00:00 Test Item Value Reference Range Interpretation Comments HEMOGLOBIN A1c (test code = 87382) 6.2 % HEMOGLOBIN [id number] 00:00:00 Test Item Value Reference Range Interpretation Comments HEMOGLOBIN A1c (test code = 88582) 6.2 % HEMOGLOBIN [id number] 00:00:00 Test Item Value Reference Range Interpretation Comments HEMOGLOBIN A1c (test code = 03594) 6.2 % [id number] 00:00:00 Test Item Value Reference Range Interpretation Comments TSH, THIRD GENERATION (test code 0.988 UIU/ML = 2821) [id number] 00:00:00 Test Item Value Reference Range Interpretation Comments TSH, THIRD GENERATION (test code 0.988 UIU/ML = 2821) [id number] 00:00:00 Test Item Value Reference Range Interpretation Comments TSH, THIRD GENERATION (test code 0.988 UIU/ML = 2821) COMPREHENSIVE METABOLIC [id number] 00:00:00 Test Item Value Reference Range Interpretation Comments GLUCOSE (test code = 2217) 109 MG/DL BUN (test code = 2208) 25 MG/DL CREATININE (test code = 2214) 0.78 MG/DL eGFR AMER. (test code 98 ML/MIN/1.73 = 48876) eGFR NON- AMER. (test 84 ML/MIN/1.73 code = 32926) CALC BUN/CREAT (test code = 32 RATIO [...] code = 2219) 25 U/L COMPREHENSIVE METABOLIC [id number] 00:00:00 Test Item Value Reference Range Interpretation Comments GLUCOSE (test code = 2217) 109 MG/DL BUN (test code = 2208) 25 MG/DL CREATININE (test code = 2214) 0.78 MG/DL eGFR AMER. (test code 98 ML/MIN/1.73 = 86054) eGFR NON- AMER. (test 84 ML/MIN/1.73 code = 44011) CALC BUN/CREAT (test code = 32 RATIO [...] (test code = 2219) 25 U/L LIPID [id number] 00:00:00 Test Item Value Reference Range Interpretation Comments CHOLESTEROL (test code = 2210) 295 MG/DL TRIGLYCERIDES (test code = 2232) 218 MG/DL HDL CHOLESTEROL (test code = 2220) 46 MG/DL CALC LDL CHOL (test code = 2237) 205 MG/DL RISK RATIO LDL/HDL (test code = 4.47 RATIO 2238) LIPID [id number] 00:00:00 Test Item Value Reference Range Interpretation Comments CHOLESTEROL (test code = 2210) 295 MG/DL TRIGLYCERIDES (test code = 2232) 218 MG/DL HDL CHOLESTEROL (test code = 2220) 46 MG/DL CALC LDL CHOL (test code = 2237) 205 MG/DL RISK RATIO LDL/HDL (test code = 4.47 RATIO 2238) HEMOGLOBIN [id number] 00:00:00 Test Item Value Reference Range Interpretation Comments HEMOGLOBIN A1c (test code = 19245) 7.0 % HEMOGLOBIN [id number] 00:00:00 Test Item Value Reference Range Interpretation Comments HEMOGLOBIN A1c (test code = 66800) 7.0 % HEMOGLOBIN [id number] 00:00:00 Test Item Value Reference Range Interpretation Comments HEMOGLOBIN A1c (test code = 09230) 7.0 % [id number] 00:00:00 Test Item Value Reference Range Interpretation Comments TSH, THIRD GENERATION (test code 0.565 UIU/ML = 2821) [id number] 00:00:00 Test Item Value Reference Range Interpretation Comments TSH, THIRD GENERATION (test code 0.565 UIU/ML = 2821) [id number] 00:00:00 Test Item Value Reference Range Interpretation Comments TSH, THIRD GENERATION (test code 0.565 UIU/ML = 2821) COMPREHENSIVE METABOLIC [id number] 00:00:00 Test Item Value Reference Range Interpretation Comments GLUCOSE (test code = 2217) 109 MG/DL BUN (test code = 2208) 25 MG/DL CREATININE (test code = 2214) 0.78 MG/DL eGFR AMER. (test code 98 ML/MIN/1.73 = 56218) eGFR NON- AMER. (test 84 ML/MIN/1.73 code = 37565) CALC BUN/CREAT (test code = 32 RATIO [...] code = 2219) 25 U/L COMPREHENSIVE METABOLIC [id number] 00:00:00 Test Item Value Reference Range Interpretation Comments GLUCOSE (test code = 2217) 109 MG/DL BUN (test code = 2208) 25 MG/DL CREATININE (test code = 2214) 0.78 MG/DL eGFR AMER. (test code 98 ML/MIN/1.73 = 90832) eGFR NON- AMER. (test 84 ML/MIN/1.73 code = 14780) CALC BUN/CREAT (test code = 32 RATIO [...] (test code = 2219) 25 U/L LIPID [id number] 00:00:00 Test Item Value Reference Range Interpretation Comments CHOLESTEROL (test code = 2210) 295 MG/DL TRIGLYCERIDES (test code = 2232) 218 MG/DL HDL CHOLESTEROL (test code = 2220) 46 MG/DL CALC LDL CHOL (test code = 2237) 205 MG/DL RISK RATIO LDL/HDL (test code = 4.47 RATIO 2238) LIPID [id number] 00:00:00 Test Item Value Reference Range Interpretation Comments CHOLESTEROL (test code = 2210) 295 MG/DL TRIGLYCERIDES (test code = 2232) 218 MG/DL HDL CHOLESTEROL (test code = 2220) 46 MG/DL CALC LDL CHOL (test code = 2237) 205 MG/DL RISK RATIO LDL/HDL (test code = 4.47 RATIO 2238) HEMOGLOBIN [id number] 00:00:00 Test Item Value Reference Range Interpretation Comments HEMOGLOBIN A1c (test code = 47994) 7.0 % HEMOGLOBIN [id number] 00:00:00 Test Item Value Reference Range Interpretation Comments HEMOGLOBIN A1c (test code = 27192) 7.0 % HEMOGLOBIN [id number] 00:00:00 Test Item Value Reference Range Interpretation Comments HEMOGLOBIN A1c (test code = 77715) 7.0 % [id number] 00:00:00 Test Item Value Reference Range Interpretation Comments TSH, THIRD GENERATION (test code 0.565 UIU/ML = 2821) [id number] 00:00:00 Test Item Value Reference Range Interpretation Comments TSH, THIRD GENERATION (test code 0.565 UIU/ML = 2821) [id number] 00:00:00 Test Item Value Reference Range Interpretation Comments TSH, THIRD GENERATION (test code 0.565 UIU/ML = 2821) COMPREHENSIVE METABOLIC [id number] 00:00:00 Test Item Value Reference Range Interpretation Comments GLUCOSE (test code = 2217) 109 MG/DL BUN (test code = 2208) 25 MG/DL CREATININE (test code = 2214) 0.78 MG/DL eGFR AMER. (test code 98 ML/MIN/1.73 = 50851) eGFR NON- AMER. (test 84 ML/MIN/1.73 code = 45509) CALC BUN/CREAT (test code = 32 RATIO [...] (test code = 2219) 25 U/L LIPID [id number] 00:00:00 Test Item Value Reference Range Interpretation Comments CHOLESTEROL (test code = 2210) 295 MG/DL TRIGLYCERIDES (test code = 2232) 218 MG/DL HDL CHOLESTEROL (test code = 2220) 46 MG/DL CALC LDL CHOL (test code = 2237) 205 MG/DL RISK RATIO LDL/HDL (test code = 4.47 RATIO 2238) HEMOGLOBIN [id number] 00:00:00 Test Item Value Reference Range Interpretation Comments HEMOGLOBIN A1c (test code = 75183) 7.0 % HEMOGLOBIN [id number] 00:00:00 Test Item Value Reference Range Interpretation Comments HEMOGLOBIN A1c (test code = 60574) 7.0 % [id number] 00:00:00 Test Item Value Reference Range Interpretation Comments TSH, THIRD GENERATION (test code 0.565 UIU/ML = 2821) [id number] 00:00:00 Test Item Value Reference Range Interpretation Comments TSH, THIRD GENERATION (test code 0.565 UIU/ML = 2821) COMPREHENSIVE METABOLIC [id number] 00:00:00 Test Item Value Reference Range Interpretation Comments GLUCOSE (test code = 2217) 109 MG/DL BUN (test code = 2208) 25 MG/DL CREATININE (test code = 2214) 0.78 MG/DL eGFR AMER. (test code 98 ML/MIN/1.73 = 08147) eGFR NON- AMER. (test 84 ML/MIN/1.73 code = 67024) CALC BUN/CREAT (test code = 32 RATIO [...] code = 2219) 25 U/L COMPREHENSIVE METABOLIC [id number] 00:00:00 Test Item Value Reference Range Interpretation Comments GLUCOSE (test code = 2217) 109 MG/DL BUN (test code = 2208) 25 MG/DL CREATININE (test code = 2214) 0.78 MG/DL eGFR AMER. (test code 98 ML/MIN/1.73 = 90970) eGFR NON- AMER. (test 84 ML/MIN/1.73 code = 00073) CALC BUN/CREAT (test code = 32 RATIO [...] (test code = 2219) 25 U/L LIPID [id number] 00:00:00 Test Item Value Reference Range Interpretation Comments CHOLESTEROL (test code = 2210) 295 MG/DL TRIGLYCERIDES (test code = 2232) 218 MG/DL HDL CHOLESTEROL (test code = 2220) 46 MG/DL CALC LDL CHOL (test code = 2237) 205 MG/DL RISK RATIO LDL/HDL (test code = 4.47 RATIO 2238) LIPID [id number] 00:00:00 Test Item Value Reference Range Interpretation Comments CHOLESTEROL (test code = 2210) 295 MG/DL TRIGLYCERIDES (test code = 2232) 218 MG/DL HDL CHOLESTEROL (test code = 2220) 46 MG/DL CALC LDL CHOL (test code = 2237) 205 MG/DL RISK RATIO LDL/HDL (test code = 4.47 RATIO 2238) HEMOGLOBIN [id number] 00:00:00 Test Item Value Reference Range Interpretation Comments HEMOGLOBIN A1c (test code = 73527) 7.0 % HEMOGLOBIN [id number] 00:00:00 Test Item Value Reference Range Interpretation Comments HEMOGLOBIN A1c (test code = 84313) 7.0 % HEMOGLOBIN [id number] 00:00:00 Test Item Value Reference Range Interpretation Comments HEMOGLOBIN A1c (test code = 71019) 7.0 % [id number] 00:00:00 Test Item Value Reference Range Interpretation Comments TSH, THIRD GENERATION (test code 0.565 UIU/ML = 2821) [id number] 00:00:00 Test Item Value Reference Range Interpretation Comments TSH, THIRD GENERATION (test code 0.565 UIU/ML = 2821) [id number] 00:00:00 Test Item Value Reference Range Interpretation Comments TSH, THIRD GENERATION (test code 0.565 UIU/ML = 2821) [id number] 00:00:00 Test Item Value Reference Range Interpretation Comments TSH, THIRD GENERATION (test code 0.379 UIU/ML = 2821) [id number] 00:00:00 Test Item Value Reference Range Interpretation Comments TSH, THIRD GENERATION (test code 0.379 UIU/ML = 2821) [id number] 00:00:00 Test Item Value Reference Range Interpretation Comments TSH, THIRD GENERATION (test code 0.379 UIU/ML = 2821) [id number] 00:00:00 Test Item Value Reference Range Interpretation Comments TSH, THIRD GENERATION (test code 0.379 UIU/ML = 2821) [id number] 00:00:00 Test Item Value Reference Range Interpretation Comments TSH, THIRD GENERATION (test code 0.379 UIU/ML = 2821) [id number] 00:00:00 Test Item Value Reference Range Interpretation Comments TSH, THIRD GENERATION (test code 0.379 UIU/ML = 2821) [id number] 00:00:00 Test Item Value Reference Range Interpretation Comments TSH, THIRD GENERATION (test code 0.379 UIU/ML = 2821) [id number] 00:00:00 Test Item Value Reference Range Interpretation Comments TSH, THIRD GENERATION (test code 0.379 UIU/ML = 2821) [id number] 00:00:00 Test Item Value Reference Range Interpretation Comments TSH, THIRD GENERATION (test code 0.379 UIU/ML = 2821) [id number] 00:00:00 Test Item Value Reference Range Interpretation Comments TSH, THIRD GENERATION (test code 0.379 UIU/ML = 2821) [id number] 00:00:00 Test Item Value Reference Range Interpretation Comments TSH, THIRD GENERATION (test code 0.379 UIU/ML = 2821) CULTURE, [id number] 00:00:00 Test Item Value Reference Range Interpretation Comments CULTURE, URINE (test SPECIMEN NUMBER: code = 36518) [id number] CULTURE, [id number] 00:00:00 Test Item Value Reference Range Interpretation Comments CULTURE, URINE (test SPECIMEN NUMBER: code = 10067) [id number] CULTURE, [id number] 00:00:00 Test Item Value Reference Range Interpretation Comments CULTURE, URINE (test SPECIMEN NUMBER: code = 94576) [id number] CULTURE, [id number] 00:00:00 Test Item Value Reference Range Interpretation Comments CULTURE, URINE (test SPECIMEN NUMBER: code = 07259) [id number] CULTURE, [id number] 00:00:00 Test Item Value Reference Range Interpretation Comments CULTURE, URINE (test SPECIMEN NUMBER: code = 48533) [id number] CULTURE, [id number] 00:00:00 Test Item Value Reference Range Interpretation Comments CULTURE, URINE (test SPECIMEN NUMBER: code = 58344) [id number] CULTURE, [id number] 00:00:00 Test Item Value Reference Range Interpretation Comments CULTURE, URINE (test SPECIMEN NUMBER: code = 33769) [id number] COMPREHENSIVE METABOLIC [id number] 00:00:00 Test Item Value Reference Range Interpretation Comments GLUCOSE (test code = 2217) 128 MG/DL BUN (test code = 2208) 26 MG/DL CREATININE (test code = 2214) 0.92 MG/DL eGFR AMER. (test code 81 ML/MIN/1.73 = 54928) eGFR NON- AMER. (test 70 ML/MIN/1.73 code = 63610) CALC BUN/CREAT (test code = 28 RATIO [...] code = 2219) 29 U/L COMPREHENSIVE METABOLIC [id number] 00:00:00 Test Item Value Reference Range Interpretation Comments GLUCOSE (test code = 2217) 128 MG/DL BUN (test code = 2208) 26 MG/DL CREATININE (test code = 2214) 0.92 MG/DL eGFR AMER. (test code 81 ML/MIN/1.73 = 61732) eGFR NON- AMER. (test 70 ML/MIN/1.73 code = 92324) CALC BUN/CREAT (test code = 28 RATIO [...] code = 2219) 29 U/L ACUTE HEPATITIS [id number] 00:00:00 Test Item Value Reference Range Interpretation Comments HEPATITIS A IgM (test code = NON-REACTIVE 53375) HEPATITIS B CORE IgM (test code NON-REACTIVE = 4644) HEPATITIS B SURF AG (test code = NON-REACTIVE 2739) HEPATITIS C ANTIBODY (test code NON-REACTIVE = 4675) INTERPRETATION HEPATITIS A: (NOTE) (test code = 2552) INTERPRETATION HEPATITIS B: (NOTE) (test code = 31796) INTERPRETATION HEPATITIS C: (NOTE) (test code = 84382) ACUTE HEPATITIS [id number] 00:00:00 Test Item Value Reference Range Interpretation Comments HEPATITIS A IgM (test code = NON-REACTIVE 52299) HEPATITIS B CORE IgM (test code NON-REACTIVE = 4644) HEPATITIS B SURF AG (test code = NON-REACTIVE 2739) HEPATITIS C ANTIBODY (test code NON-REACTIVE = 4675) INTERPRETATION HEPATITIS A: (NOTE) (test code = 2552) INTERPRETATION HEPATITIS B: (NOTE) (test code = 78584) INTERPRETATION HEPATITIS C: (NOTE) (test code = 00225) [id number] 00:00:00 Test Item Value Reference Range Interpretation Comments AMYLASE (test code = 2205) 32 U/L [id number] 00:00:00 Test Item Value Reference Range Interpretation Comments AMYLASE (test code = 2205) 32 U/L [id number] 00:00:00 Test Item Value Reference Range Interpretation Comments LIPASE (test code = 2058) 22 U/L [id number] 00:00:00 Test Item Value Reference Range Interpretation Comments LIPASE (test code = 2058) 22 U/L [id number] 00:00:00 Test Item Value Reference Range Interpretation Comments LIPASE (test code = 2058) 22 U/L COMPREHENSIVE METABOLIC [id number] 00:00:00 Test Item Value Reference Range Interpretation Comments GLUCOSE (test code = 2217) 128 MG/DL BUN (test code = 2208) 26 MG/DL CREATININE (test code = 2214) 0.92 MG/DL eGFR AMER. (test code 81 ML/MIN/1.73 = 97215) eGFR NON- AMER. (test 70 ML/MIN/1.73 code = 34653) CALC BUN/CREAT (test code = 28 RATIO [...] code = 2219) 29 U/L COMPREHENSIVE METABOLIC [id number] 00:00:00 Test Item Value Reference Range Interpretation Comments GLUCOSE (test code = 2217) 128 MG/DL BUN (test code = 2208) 26 MG/DL CREATININE (test code = 2214) 0.92 MG/DL eGFR AMER. (test code 81 ML/MIN/1.73 = 20776) eGFR NON- AMER. (test 70 ML/MIN/1.73 code = 80200) CALC BUN/CREAT (test code = 28 RATIO [...] code = 2219) 29 U/L ACUTE HEPATITIS [id number] 00:00:00 Test Item Value Reference Range Interpretation Comments HEPATITIS A IgM (test code = NON-REACTIVE 40271) HEPATITIS B CORE IgM (test code NON-REACTIVE = 4644) HEPATITIS B SURF AG (test code = NON-REACTIVE 2739) HEPATITIS C ANTIBODY (test code NON-REACTIVE = 4675) INTERPRETATION HEPATITIS A: (NOTE) (test code = 2552) INTERPRETATION HEPATITIS B: (NOTE) (test code = 30570) INTERPRETATION HEPATITIS C: (NOTE) (test code = 29451) ACUTE HEPATITIS [id number] 00:00:00 Test Item Value Reference Range Interpretation Comments HEPATITIS A IgM (test code = NON-REACTIVE 61785) HEPATITIS B CORE IgM (test code NON-REACTIVE = 4644) HEPATITIS B SURF AG (test code = NON-REACTIVE 2739) HEPATITIS C ANTIBODY (test code NON-REACTIVE = 4675) INTERPRETATION HEPATITIS A: (NOTE) (test code = 2552) INTERPRETATION HEPATITIS B: (NOTE) (test code = 74871) INTERPRETATION HEPATITIS C: (NOTE) (test code = 64514) [id number] 00:00:00 Test Item Value Reference Range Interpretation Comments AMYLASE (test code = 2205) 32 U/L [id number] 00:00:00 Test Item Value Reference Range Interpretation Comments AMYLASE (test code = 2205) 32 U/L [id number] 00:00:00 Test Item Value Reference Range Interpretation Comments LIPASE (test code = 2058) 22 U/L [id number] 00:00:00 Test Item Value Reference Range Interpretation Comments LIPASE (test code = 2058) 22 U/L [id number] 00:00:00 Test Item Value Reference Range Interpretation Comments LIPASE (test code = 2058) 22 U/L COMPREHENSIVE METABOLIC [id number] 00:00:00 Test Item Value Reference Range Interpretation Comments GLUCOSE (test code = 2217) 128 MG/DL BUN (test code = 2208) 26 MG/DL CREATININE (test code = 2214) 0.92 MG/DL eGFR AMER. (test code 81 ML/MIN/1.73 = 82319) eGFR NON- AMER. (test 70 ML/MIN/1.73 code = 03990) CALC BUN/CREAT (test code = 28 RATIO [...] code = 2219) 29 U/L ACUTE HEPATITIS [id number] 00:00:00 Test Item Value Reference Range Interpretation Comments HEPATITIS A IgM (test code = NON-REACTIVE 05425) HEPATITIS B CORE IgM (test code NON-REACTIVE = 4644) HEPATITIS B SURF AG (test code = NON-REACTIVE 6326) HEPATITIS C ANTIBODY (test code NON-REACTIVE = 4027) INTERPRETATION HEPATITIS A: (NOTE) (test code = 2552) INTERPRETATION HEPATITIS B: (NOTE) (test code = 65545) INTERPRETATION HEPATITIS C: (NOTE) (test code = 84596) [id number] 00:00:00 Test Item Value Reference Range Interpretation Comments AMYLASE (test code = 2205) 32 U/L [id number] 00:00:00 Test Item Value Reference Range Interpretation Comments LIPASE (test code = 2057) 22 U/L [id number] 00:00:00 Test Item Value Reference Range Interpretation Comments LIPASE (test code = 2057) 22 U/L COMPREHENSIVE METABOLIC [id number] 00:00:00 Test Item Value Reference Range Interpretation Comments GLUCOSE (test code = 2217) 128 MG/DL BUN (test code = 2208) 26 MG/DL CREATININE (test code = 2214) 0.92 MG/DL eGFR AMER. (test code 81 ML/MIN/1.73 = 78381) eGFR NON- AMER. (test 70 ML/MIN/1.73 code = 44947) CALC BUN/CREAT (test code = 28 RATIO [...] code = 2219) 29 U/L COMPREHENSIVE METABOLIC [id number] 00:00:00 Test Item Value Reference Range Interpretation Comments GLUCOSE (test code = 2217) 128 MG/DL BUN (test code = 2208) 26 MG/DL CREATININE (test code = 2214) 0.92 MG/DL eGFR AMER. (test code 81 ML/MIN/1.73 = 12622) eGFR NON- AMER. (test 70 ML/MIN/1.73 code = 64803) CALC BUN/CREAT (test code = 28 RATIO [...] code = 2219) 29 U/L ACUTE HEPATITIS [id number] 00:00:00 Test Item Value Reference Range Interpretation Comments HEPATITIS A IgM (test code = NON-REACTIVE 65623) HEPATITIS B CORE IgM (test code NON-REACTIVE = 4644) HEPATITIS B SURF AG (test code = NON-REACTIVE 2739) HEPATITIS C ANTIBODY (test code NON-REACTIVE = 4675) INTERPRETATION HEPATITIS A: (NOTE) (test code = 2552) INTERPRETATION HEPATITIS B: (NOTE) (test code = 00841) INTERPRETATION HEPATITIS C: (NOTE) (test code = 46551) ACUTE HEPATITIS [id number] 00:00:00 Test Item Value Reference Range Interpretation Comments HEPATITIS A IgM (test code = NON-REACTIVE 38119) HEPATITIS B CORE IgM (test code NON-REACTIVE = 4644) HEPATITIS B SURF AG (test code = NON-REACTIVE 2739) HEPATITIS C ANTIBODY (test code NON-REACTIVE = 4675) INTERPRETATION HEPATITIS A: (NOTE) (test code = 2552) INTERPRETATION HEPATITIS B: (NOTE) (test code = 15406) INTERPRETATION HEPATITIS C: (NOTE) (test code = 30446) [id number] 00:00:00 Test Item Value Reference Range Interpretation Comments AMYLASE (test code = 2205) 32 U/L [id number] 00:00:00 Test Item Value Reference Range Interpretation Comments AMYLASE (test code = 2205) 32 U/L [id number] 00:00:00 Test Item Value Reference Range Interpretation Comments LIPASE (test code = 2058) 22 U/L [id number] 00:00:00 Test Item Value Reference Range Interpretation Comments LIPASE (test code = 2058) 22 U/L [id number] 00:00:00 Test Item Value Reference Range Interpretation Comments LIPASE (test code = 2058) 22 U/L [id number] 00:00:00 Test Item Value Reference Range Interpretation Comments TSH, THIRD GENERATION (test code 4.890 UIU/ML = 2821) [id number] 00:00:00 Test Item Value Reference Range Interpretation Comments TSH, THIRD GENERATION (test code 4.890 UIU/ML = 2821) [id number] 00:00:00 Test Item Value Reference Range Interpretation Comments TSH, THIRD GENERATION (test code 4.890 UIU/ML = 2821) COMPREHENSIVE METABOLIC [id number] 00:00:00 Test Item Value Reference Range Interpretation Comments GLUCOSE (test code = 2217) 121 MG/DL BUN (test code = 2208) 40 MG/DL CREATININE (test code = 2214) 1.48 MG/DL eGFR AMER. (test code 45 ML/MIN/1.73 = 95427) eGFR NON- AMER. (test 39 ML/MIN/1.73 code = 92957) CALC BUN/CREAT (test code = 27 RATIO [...] code = 2219) 20 U/L COMPREHENSIVE METABOLIC [id number] 00:00:00 Test Item Value Reference Range Interpretation Comments GLUCOSE (test code = 2217) 121 MG/DL BUN (test code = 2208) 40 MG/DL CREATININE (test code = 2214) 1.48 MG/DL eGFR AMER. (test code 45 ML/MIN/1.73 = 82128) eGFR NON- AMER. (test 39 ML/MIN/1.73 code = 15805) CALC BUN/CREAT (test code = 27 RATIO [...] ALT (test code = 2219) 20 U/L [id number] 00:00:00 Test Item Value Reference Range Interpretation Comments TSH, THIRD GENERATION (test code 4.890 UIU/ML = 2821) [id number] 00:00:00 Test Item Value Reference Range Interpretation Comments TSH, THIRD GENERATION (test code 4.890 UIU/ML = 2821) [id number] 00:00:00 Test Item Value Reference Range Interpretation Comments TSH, THIRD GENERATION (test code 4.890 UIU/ML = 2821) COMPREHENSIVE METABOLIC [id number] 00:00:00 Test Item Value Reference Range Interpretation Comments GLUCOSE (test code = 2217) 121 MG/DL BUN (test code = 2208) 40 MG/DL CREATININE (test code = 2214) 1.48 MG/DL eGFR AMER. (test code 45 ML/MIN/1.73 = 78891) eGFR NON- AMER. (test 39 ML/MIN/1.73 code = 88997) CALC BUN/CREAT (test code = 27 RATIO [...] code = 2219) 20 U/L COMPREHENSIVE METABOLIC [id number] 00:00:00 Test Item Value Reference Range Interpretation Comments GLUCOSE (test code = 2217) 121 MG/DL BUN (test code = 2208) 40 MG/DL CREATININE (test code = 2214) 1.48 MG/DL eGFR AMER. (test code 45 ML/MIN/1.73 = 19188) eGFR NON- AMER. (test 39 ML/MIN/1.73 code = 58463) CALC BUN/CREAT (test code = 27 RATIO [...] ALT (test code = 2219) 20 U/L [id number] 00:00:00 Test Item Value Reference Range Interpretation Comments TSH, THIRD GENERATION (test code 4.890 UIU/ML = 2821) [id number] 00:00:00 Test Item Value Reference Range Interpretation Comments TSH, THIRD GENERATION (test code 4.890 UIU/ML = 2821) COMPREHENSIVE METABOLIC [id number] 00:00:00 Test Item Value Reference Range Interpretation Comments GLUCOSE (test code = 2217) 121 MG/DL BUN (test code = 2208) 40 MG/DL CREATININE (test code = 2214) 1.48 MG/DL eGFR AMER. (test code 45 ML/MIN/1.73 = 80485) eGFR NON- AMER. (test 39 ML/MIN/1.73 code = 55314) CALC BUN/CREAT (test code = 27 RATIO [...] ALT (test code = 2219) 20 U/L [id number] 00:00:00 Test Item Value Reference Range Interpretation Comments TSH, THIRD GENERATION (test code 4.890 UIU/ML = 2821) [id number] 00:00:00 Test Item Value Reference Range Interpretation Comments TSH, THIRD GENERATION (test code 4.890 UIU/ML = 2821) [id number] 00:00:00 Test Item Value Reference Range Interpretation Comments TSH, THIRD GENERATION (test code 4.890 UIU/ML = 2821) COMPREHENSIVE METABOLIC [id number] 00:00:00 Test Item Value Reference Range Interpretation Comments GLUCOSE (test code = 2217) 121 MG/DL BUN (test code = 2208) 40 MG/DL CREATININE (test code = 2214) 1.48 MG/DL eGFR AMER. (test code 45 ML/MIN/1.73 = 22589) eGFR NON- AMER. (test 39 ML/MIN/1.73 code = 92613) CALC BUN/CREAT (test code = 27 RATIO [...] code = 2219) 20 U/L COMPREHENSIVE METABOLIC [id number] 00:00:00 Test Item Value Reference Range Interpretation Comments GLUCOSE (test code = 2217) 121 MG/DL BUN (test code = 2208) 40 MG/DL CREATININE (test code = 2214) 1.48 MG/DL eGFR AMER. (test code 45 ML/MIN/1.73 = 88530) eGFR NON- AMER. (test 39 ML/MIN/1.73 code = 34038) CALC BUN/CREAT (test code = 27 RATIO [...] (test code = 2219) 20 U/L LIPID [id number] 00:00:00 Test Item Value Reference Range Interpretation Comments CHOLESTEROL (test code = 2210) 261 MG/DL TRIGLYCERIDES (test code = 2232) 165 MG/DL HDL CHOLESTEROL (test code = 2220) 58 MG/DL CALC LDL CHOL (test code = 2237) 170 MG/DL RISK RATIO LDL/HDL (test code = 2.93 RATIO 2238) LIPID [id number] 00:00:00 Test Item Value Reference Range Interpretation Comments CHOLESTEROL (test code = 2210) 261 MG/DL TRIGLYCERIDES (test code = 2232) 165 MG/DL HDL CHOLESTEROL (test code = 2220) 58 MG/DL CALC LDL CHOL (test code = 2237) 170 MG/DL RISK RATIO LDL/HDL (test code = 2.93 RATIO 2238) CBC W/AUTO [id number] 00:00:00 Test Item Value Reference Range Interpretation [...] code = 1015) 378 K/UL CBC W/AUTO [id number] 00:00:00 Test Item Value Reference Range Interpretation [...] code = 1015) 378 K/UL CBC W/AUTO [id number] 00:00:00 Test Item Value Reference Range Interpretation [...] (test code = 1015) 378 K/UL HEMOGLOBIN [id number] 00:00:00 Test Item Value Reference Range Interpretation Comments HEMOGLOBIN A1c (test code = 85164) 6.4 % HEMOGLOBIN [id number] 00:00:00 Test Item Value Reference Range Interpretation Comments HEMOGLOBIN A1c (test code = 08453) 6.4 % HEMOGLOBIN [id number] 00:00:00 Test Item Value Reference Range Interpretation Comments HEMOGLOBIN A1c (test code = 84147) 6.4 % [id number] 00:00:00 Test Item Value Reference Range Interpretation Comments TSH (test code = 2821) 5.290 UIU/ML [id number] 00:00:00 Test Item Value Reference Range Interpretation Comments TSH (test code = 2821) 5.290 UIU/ML [id number] 00:00:00 Test Item Value Reference Range Interpretation Comments TSH (test code = 2821) 5.290 UIU/ML LIPID [id number] 00:00:00 Test Item Value Reference Range Interpretation Comments CHOLESTEROL (test code = 2210) 261 MG/DL TRIGLYCERIDES (test code = 2232) 165 MG/DL HDL CHOLESTEROL (test code = 2220) 58 MG/DL CALC LDL CHOL (test code = 2237) 170 MG/DL RISK RATIO LDL/HDL (test code = 2.93 RATIO 2238) LIPID [id number] 00:00:00 Test Item Value Reference Range Interpretation Comments CHOLESTEROL (test code = 2210) 261 MG/DL TRIGLYCERIDES (test code = 2232) 165 MG/DL HDL CHOLESTEROL (test code = 2220) 58 MG/DL CALC LDL CHOL (test code = 2237) 170 MG/DL RISK RATIO LDL/HDL (test code = 2.93 RATIO 2238) CBC W/AUTO [id number] 00:00:00 Test Item Value Reference Range Interpretation [...] code = 1015) 378 K/UL CBC W/AUTO [id number] 00:00:00 Test Item Value Reference Range Interpretation [...] code = 1015) 378 K/UL CBC W/AUTO [id number] 00:00:00 Test Item Value Reference Range Interpretation [...] (test code = 1015) 378 K/UL HEMOGLOBIN [id number] 00:00:00 Test Item Value Reference Range Interpretation Comments HEMOGLOBIN A1c (test code = 53158) 6.4 % HEMOGLOBIN [id number] 00:00:00 Test Item Value Reference Range Interpretation Comments HEMOGLOBIN A1c (test code = 79841) 6.4 % HEMOGLOBIN [id number] 00:00:00 Test Item Value Reference Range Interpretation Comments HEMOGLOBIN A1c (test code = 22857) 6.4 % [id number] 00:00:00 Test Item Value Reference Range Interpretation Comments TSH (test code = 2821) 5.290 UIU/ML [id number] 00:00:00 Test Item Value Reference Range Interpretation Comments TSH (test code = 2821) 5.290 UIU/ML [id number] 00:00:00 Test Item Value Reference Range Interpretation Comments TSH (test code = 2821) 5.290 UIU/ML LIPID [id number] 00:00:00 Test Item Value Reference Range Interpretation Comments CHOLESTEROL (test code = 2210) 261 MG/DL TRIGLYCERIDES (test code = 2232) 165 MG/DL HDL CHOLESTEROL (test code = 2220) 58 MG/DL CALC LDL CHOL (test code = 2237) 170 MG/DL RISK RATIO LDL/HDL (test code = 2.93 RATIO 2238) CBC W/AUTO [id number] 00:00:00 Test Item Value Reference Range Interpretation [...] code = 1015) 378 K/UL CBC W/AUTO [id number] 00:00:00 Test Item Value Reference Range Interpretation [...] (test code = 1015) 378 K/UL HEMOGLOBIN [id number] 00:00:00 Test Item Value Reference Range Interpretation Comments HEMOGLOBIN A1c (test code = 45165) 6.4 % HEMOGLOBIN [id number] 00:00:00 Test Item Value Reference Range Interpretation Comments HEMOGLOBIN A1c (test code = 12290) 6.4 % [id number] 00:00:00 Test Item Value Reference Range Interpretation Comments TSH (test code = 2821) 5.290 UIU/ML [id number] 00:00:00 Test Item Value Reference Range Interpretation Comments TSH (test code = 2821) 5.290 UIU/ML LIPID [id number] 00:00:00 Test Item Value Reference Range Interpretation Comments CHOLESTEROL (test code = 2210) 261 MG/DL TRIGLYCERIDES (test code = 2232) 165 MG/DL HDL CHOLESTEROL (test code = 2220) 58 MG/DL CALC LDL CHOL (test code = 2237) 170 MG/DL RISK RATIO LDL/HDL (test code = 2.93 RATIO 2238) LIPID [id number] 00:00:00 Test Item Value Reference Range Interpretation Comments CHOLESTEROL (test code = 2210) 261 MG/DL TRIGLYCERIDES (test code = 2232) 165 MG/DL HDL CHOLESTEROL (test code = 2220) 58 MG/DL CALC LDL CHOL (test code = 2237) 170 MG/DL RISK RATIO LDL/HDL (test code = 2.93 RATIO 2238) CBC W/AUTO [id number] 00:00:00 Test Item Value Reference Range Interpretation [...] code = 1015) 378 K/UL CBC W/AUTO [id number] 00:00:00 Test Item Value Reference Range Interpretation [...] code = 1015) 378 K/UL CBC W/AUTO [id number] 00:00:00 Test Item Value Reference Range Interpretation [...] (test code = 1015) 378 K/UL HEMOGLOBIN [id number] 00:00:00 Test Item Value Reference Range Interpretation Comments HEMOGLOBIN A1c (test code = 68704) 6.4 % HEMOGLOBIN [id number] 00:00:00 Test Item Value Reference Range Interpretation Comments HEMOGLOBIN A1c (test code = 87233) 6.4 % HEMOGLOBIN [id number] 00:00:00 Test Item Value Reference Range Interpretation Comments HEMOGLOBIN A1c (test code = 60940) 6.4 % [id number] 00:00:00 Test Item Value Reference Range Interpretation Comments TSH (test code = 2821) 5.290 UIU/ML [id number] 00:00:00 Test Item Value Reference Range Interpretation Comments TSH (test code = 2821) 5.290 UIU/ML [id number] 00:00:00 Test Item Value Reference Range Interpretation [...] code = 2821) 1.030 UIU/ML COMPREHENSIVE METABOLIC [id number] 00:00:00 Test Item Value Reference Range Interpretation Comments GLUCOSE (test code = 2217) 106 MG/DL BUN (test code = 2208) 23 MG/DL CREATININE (test code = 2214) 0.66 MG/DL eGFR AMER. (test code 114 ML/MIN/1.73 = 91210) eGFR NON- AMER. (test 99 ML/MIN/1.73 code = 48470) CALC BUN/CREAT (test code = 35 RATIO [...] code = 2219) 31 U/L COMPREHENSIVE METABOLIC [id number] 00:00:00 Test Item Value Reference Range Interpretation Comments GLUCOSE (test code = 2217) 106 MG/DL BUN (test code = 2208) 23 MG/DL CREATININE (test code = 2214) 0.66 MG/DL eGFR AMER. (test code 114 ML/MIN/1.73 = 78960) eGFR NON- AMER. (test 99 ML/MIN/1.73 code = 91544) CALC BUN/CREAT (test code = 35 RATIO [...] code = 2821) 0.335 UIU/ML COMPREHENSIVE METABOLIC [id number] 00:00:00 Test Item Value Reference Range Interpretation Comments GLUCOSE (test code = 2217) 106 MG/DL BUN (test code = 2208) 23 MG/DL CREATININE (test code = 2214) 0.66 MG/DL eGFR AMER. (test code 114 ML/MIN/1.73 = 61770) eGFR NON- AMER. (test 99 ML/MIN/1.73 code = 45325) CALC BUN/CREAT (test code = 35 RATIO [...] code = 2219) 31 U/L COMPREHENSIVE METABOLIC [id number] 00:00:00 Test Item Value Reference Range Interpretation Comments GLUCOSE (test code = 2217) 106 MG/DL BUN (test code = 2208) 23 MG/DL CREATININE (test code = 2214) 0.66 MG/DL eGFR AMER. (test code 114 ML/MIN/1.73 = 85208) eGFR NON- AMER. (test 99 ML/MIN/1.73 code = 14369) CALC BUN/CREAT (test code = 35 RATIO [...] code = 2821) 0.335 UIU/ML COMPREHENSIVE METABOLIC [id number] 00:00:00 Test Item Value Reference Range Interpretation Comments GLUCOSE (test code = 2217) 106 MG/DL BUN (test code = 2208) 23 MG/DL CREATININE (test code = 2214) 0.66 MG/DL eGFR AMER. (test code 114 ML/MIN/1.73 = 01787) eGFR NON- AMER. (test 99 ML/MIN/1.73 code = 62714) CALC BUN/CREAT (test code = 35 RATIO [...] code = 2821) 0.335 UIU/ML COMPREHENSIVE METABOLIC [id number] 00:00:00 Test Item Value Reference Range Interpretation Comments GLUCOSE (test code = 2217) 106 MG/DL BUN (test code = 2208) 23 MG/DL CREATININE (test code = 2214) 0.66 MG/DL eGFR AMER. (test code 114 ML/MIN/1.73 = 59371) eGFR NON- AMER. (test 99 ML/MIN/1.73 code = 56998) CALC BUN/CREAT (test code = 35 RATIO [...] code = 2219) 31 U/L COMPREHENSIVE METABOLIC [id number] 00:00:00 Test Item Value Reference Range Interpretation Comments GLUCOSE (test code = 2217) 106 MG/DL BUN (test code = 2208) 23 MG/DL CREATININE (test code = 2214) 0.66 MG/DL eGFR AMER. (test code 114 ML/MIN/1.73 = 01498) eGFR NON- AMER. (test 99 ML/MIN/1.73 code = 48120) CALC BUN/CREAT (test code = 35 RATIO [...] code = 2821) 0.335 UIU/ML COMPREHENSIVE METABOLIC [id number] 00:00:00 Test Item Value Reference Range Interpretation Comments GLUCOSE (test code = 2217) 103 MG/DL BUN (test code = 2208) 15 MG/DL CREATININE (test code = 2214) 0.77 MG/DL eGFR AMER. (test code 101 ML/MIN/1.73 = 51805) eGFR NON- AMER. (test 87 ML/MIN/1.73 code = 93499) CALC BUN/CREAT (test code = 19 RATIO [...] code = 2219) 24 U/L COMPREHENSIVE METABOLIC [id number] 00:00:00 Test Item Value Reference Range Interpretation Comments GLUCOSE (test code = 2217) 103 MG/DL BUN (test code = 2208) 15 MG/DL CREATININE (test code = 2214) 0.77 MG/DL eGFR AMER. (test code 101 ML/MIN/1.73 = 34027) eGFR NON- AMER. (test 87 ML/MIN/1.73 code = 49059) CALC BUN/CREAT (test code = 19 RATIO [...] code = 2821) 0.424 UIU/ML COMPREHENSIVE METABOLIC [id number] 00:00:00 Test Item Value Reference Range Interpretation Comments GLUCOSE (test code = 2217) 103 MG/DL BUN (test code = 2208) 15 MG/DL CREATININE (test code = 2214) 0.77 MG/DL eGFR AMER. (test code 101 ML/MIN/1.73 = 10865) eGFR NON- AMER. (test 87 ML/MIN/1.73 code = 65627) CALC BUN/CREAT (test code = 19 RATIO [...] code = 2219) 24 U/L COMPREHENSIVE METABOLIC [id number] 00:00:00 Test Item Value Reference Range Interpretation Comments GLUCOSE (test code = 2217) 103 MG/DL BUN (test code = 2208) 15 MG/DL CREATININE (test code = 2214) 0.77 MG/DL eGFR AMER. (test code 101 ML/MIN/1.73 = 06789) eGFR NON- AMER. (test 87 ML/MIN/1.73 code = 64147) CALC BUN/CREAT (test code = 19 RATIO [...] code = 2821) 0.424 UIU/ML COMPREHENSIVE METABOLIC [id number] 00:00:00 Test Item Value Reference Range Interpretation Comments GLUCOSE (test code = 2217) 103 MG/DL BUN (test code = 2208) 15 MG/DL CREATININE (test code = 2214) 0.77 MG/DL eGFR AMER. (test code 101 ML/MIN/1.73 = 91831) eGFR NON- AMER. (test 87 ML/MIN/1.73 code = 45121) CALC BUN/CREAT (test code = 19 RATIO 2235) SODIUM (test code = 2231) 136 MEQ/L POTASSIUM (test code = 2228) 4.7 MEQ/L CHLORIDE (test code = 2215) 94 MEQ/L CARBON DIOXIDE (test code = 27 MEQ/L 2205) CALCIUM (test code = 220) 9.4 MG/DL PROTEIN, TOTAL (test code = 6.4 G/DL 2228) ALBUMIN (test code = 2201) 4.3 G/DL CALC GLOBULIN (test code = 2.1 G/DL 2240) CALC A/G RATIO (test code = 2.0 RATIO 223) BILIRUBIN, TOTAL (test code = 0.1 MG/DL [...] code = 2821) 0.424 UIU/ML COMPREHENSIVE METABOLIC [id number] 00:00:00 Test Item Value Reference Range Interpretation Comments GLUCOSE (test code = 2217) 103 MG/DL BUN (test code = 2208) 15 MG/DL CREATININE (test code = 2214) 0.77 MG/DL eGFR AMER. (test code 101 ML/MIN/1.73 = 86107) eGFR NON- AMER. (test 87 ML/MIN/1.73 code = 32224) CALC BUN/CREAT (test code = 19 RATIO [...] code = 2219) 24 U/L COMPREHENSIVE METABOLIC [id number] 00:00:00 Test Item Value Reference Range Interpretation Comments GLUCOSE (test code = 2217) 103 MG/DL BUN (test code = 2208) 15 MG/DL CREATININE (test code = 2214) 0.77 MG/DL eGFR AMER. (test code 101 ML/MIN/1.73 = 68673) eGFR NON- AMER. (test 87 ML/MIN/1.73 code = 27956) CALC BUN/CREAT (test code = 19 RATIO [...] (test code = 2821) 0.424 UIU/ML CULTURE, [id number] 00:00:00 Test Item Value Reference Range Interpretation Comments CULTURE, URINE (test SPECIMEN NUMBER: code = 81216) [id number] CULTURE, [id number] 00:00:00 Test Item Value Reference Range Interpretation Comments CULTURE, URINE (test SPECIMEN NUMBER: code = 60756) [id number] CULTURE, [id number] 00:00:00 Test Item Value Reference Range Interpretation Comments CULTURE, URINE (test SPECIMEN NUMBER: code = 54236) [id number] CULTURE, [id number] 00:00:00 Test Item Value Reference Range Interpretation Comments CULTURE, URINE (test SPECIMEN NUMBER: code = 48040) [id number] CULTURE, [id number] 00:00:00 Test Item Value Reference Range Interpretation Comments CULTURE, URINE (test SPECIMEN NUMBER: code = 93249) [id number] CULTURE, [id number] 00:00:00 Test Item Value Reference Range Interpretation Comments CULTURE, URINE (test SPECIMEN NUMBER: code = 39691) [id number] CULTURE, [id number] 00:00:00 Test Item Value Reference Range Interpretation Comments CULTURE, URINE (test SPECIMEN NUMBER: code = 52878) [id number] CULTURE, [id number] 00:00:00 Test Item Value Reference Range Interpretation Comments CULTURE, URINE (test SPECIMEN NUMBER: code = 91346) [id number] CULTURE, [id number] 00:00:00 Test Item Value Reference Range Interpretation Comments CULTURE, URINE (test SPECIMEN NUMBER: code = 15404) [id number] CULTURE, [id number] 00:00:00 Test Item Value Reference Range Interpretation Comments CULTURE, URINE (test SPECIMEN NUMBER: code = 45353) [id number] CULTURE, [id number] 00:00:00 Test Item Value Reference Range Interpretation Comments CULTURE, URINE (test SPECIMEN NUMBER: code = 27937) [id number] CULTURE, [id number] 00:00:00 Test Item Value Reference Range Interpretation Comments CULTURE, URINE (test SPECIMEN NUMBER: code = 24672) [id number] CULTURE, [id number] 00:00:00 Test Item Value Reference Range Interpretation Comments CULTURE, URINE (test SPECIMEN NUMBER: code = 62987) [id number] CULTURE, [id number] 00:00:00 Test Item Value Reference Range Interpretation Comments CULTURE, URINE (test SPECIMEN NUMBER: code = 59649) [id number]
[2022-05-15] MEDS ORDERED: ONDANSETRON 4 MG (ODT) TAB ONE (19:04)
[2022-05-15 21:17] VITALS: BP 171/69; TEMP 98.5; O2SAT 100
--- NOTE | 2022-05-30 15:14 | EDPHYS ---
Physician Documentation [facility] Name: Jaimie Amanda Age: 61 yrs Sex: Female : 1960 Arrival Date: 05/15/2022 Time: 18:44 Bed IW3 Private MD: ED Physician Diego Ramirez HPI: 05/15 19:00 This 61 yrs old Female presents to ER via Ambulatory with complaints of Abdominal Pain, cp Nausea/Vomiting, Near Syncope. 19:00 The patient presents with abdominal pain in the right upper quadrant. Onset: The cp symptoms/episode began/occurred this morning. Associated signs and symptoms: Pertinent positives: nausea and vomiting, Pertinent negatives: blood in stools, chest pain, constipation, diarrhea, dysuria, fever, vomiting blood. The symptoms are described as constant. Severity of pain: in the emergency department the pain is unchanged despite home interventions. Historical: - Allergies: 18:58 No Known Allergies; hb - PMHx: 18:58 Anxiety; Chronic Abdominal Pain; Hypertensive disorder; Hypothyroidism; low NA; NIDDM; hb - PSHx: 18:58 Thyroidectomy; hb ROS: 19:05 Constitutional: Positive for poor PO intake, Negative for body aches, chills, fever. cp 19:05 Eyes: Negative for injury, pain, redness, and discharge. cp 19:05 Cardiovascular: Negative for chest pain. 19:05 Respiratory: Negative for cough, shortness of breath, wheezing. 19:05 Abdomen/GI: Positive for abdominal pain, nausea and vomiting, of the right upper quadrant, Negative for diarrhea, constipation. 19:05 Back: Negative for pain at rest, pain with movement. 19:05 Neuro: Negative for altered mental status, dizziness, headache, weakness. 19:05 All other systems are negative. Exam: 19:08 Constitutional: The patient appears in no acute distress, alert, awake, cp non-diaphoretic, non-toxic, well developed, well nourished. 19:08 Head/Face: Normocephalic, atraumatic. cp 19:08 Eyes: Periorbital structures: appear normal, Conjunctiva: normal, no exudate, no injection, Sclera: no appreciated abnormality, Lids and lashes: appear normal, bilaterally. 19:08 ENT: External ear(s): are unremarkable, Nose: is normal, Mouth: Lips: moist, Oral mucosa: moist, Posterior pharynx: Airway: no evidence of obstruction, patent. 19:08 Chest/axilla: Inspection: normal. 19:08 Cardiovascular: Rate: tachycardic. 19:08 Respiratory: the patient does not display signs of respiratory distress, Respirations: normal, no use of accessory muscles, no retractions, labored breathing, is not present, Breath sounds: are clear throughout, no decreased breath sounds, no stridor, no wheezing. 19:08 Abdomen/GI: Inspection: abdomen appears normal, Bowel sounds: active, all quadrants, Palpation: soft, in all quadrants, moderate abdominal tenderness, in the right upper quadrant, rebound tenderness, is not appreciated, voluntary guarding, is elicited in the right upper quadrant, involuntary guarding, is not appreciated. 19:08 Back: CVA tenderness, is absent. 19:08 Neuro: Orientation: to person, place \T\ time. Mentation: able to follow commands, Motor: moves all fours, strength is normal, Gait: is steady. Vital Signs: 18:56 BP 171 / 69; Pulse 100; Resp 20; Temp 98.5; Pulse Ox 100% on R/A; Weight 79.38 kg; hb Height 5 ft. 7 in. ; Pain 9/10; 18:56 Body Mass Index 27.41 (79.38 kg, 170.18 cm) hb 18:56 Pain Scale: Adult hb MDM: 19:04 Patient medically screened. cp 19:10 Differential diagnosis: bowel obstruction, cholecystitis, Cholelithiasis, pancreatitis, cp Pyelonephritis, urinary tract infection. 19:10 Data reviewed: vital signs, nurses notes. 05/15 19:04 Order name: EKG - Nurse/Tech 05/15 19:04 Order name: IV Saline Lock 05/15 19:04 Order name: Labs collected and sent 05/15 19:04 Order name: Urine Dipstick-Ancillary (obtain specimen) cp Administered Medications: 19:00 Drug: Ondansetron PO 4 mg Route: PO; hb Disposition Summary: 05/15/22 20:44 Discharge Ordered Location: Home cp Problem: new cp Symptoms: are unchanged cp Condition: Stable cp Diagnosis - Nausea with vomiting, unspecified cp - Upper abdominal pain, unspecified cp Followup: cp - With: Private Physician - When: 1 - 2 days - Reason: Recheck today's complaints Forms: - Medication Reconciliation Form cp - Thank You Letter cp - Antibiotic Education cp - Prescription Opioid Use cp Signatures: Dispatcher [employer] EDMS Diego Ang PA PA cp Baxter, Heather, RN RN
--- NOTE | 2022-05-30 15:14 | ER ---
Nurse's Notes [facility] Name: Jaimie Amanda Age: 61 yrs Sex: Female : 1960 Arrival Date: 05/15/2022 Time: 18:44 Bed IW3 Private MD: Diagnosis: Nausea with vomiting, unspecified;Upper abdominal pain, unspecified Presentation: 05/15 18:56 Chief complaint: N/V and RUQ pain since this morning. Coronavirus screen: Client hb presents with at least one sign or symptom that may indicate coronavirus-19. Provider contacted for isolation considerations. Ebola Screen: No symptoms or risks identified at this time. Initial Sepsis Screen: Does the patient meet any 2 criteria? No. Patient's initial sepsis screen is negative. Does the patient have a suspected source of infection? No. Patient's initial sepsis screen is negative. Risk Assessment: Do you want to hurt yourself or someone else? Patient reports no desire to harm self or others. Onset of symptoms was May 15, 2022. 18:56 Method Of Arrival: Ambulatory hb 18:56 Acuity: ZHEN 3 hb Historical: - Allergies: 18:58 No Known Allergies; hb - PMHx: 18:58 Anxiety; Chronic Abdominal Pain; Hypertensive disorder; Hypothyroidism; low NA; NIDDM; hb - PSHx: 18:58 Thyroidectomy; hb Assessment: 20:46 Reassessment: pt left before discharge instructions given. bb Vital Signs: 18:56 BP 171 / 69; Pulse 100; Resp 20; Temp 98.5; Pulse Ox 100% on R/A; Weight 79.38 kg; hb Height 5 ft. 7 in. ; Pain 9/10; 18:56 Body Mass Index 27.41 (79.38 kg, 170.18 cm) hb 18:56 Pain Scale: Adult hb ED Course: 18:44 Patient arrived in ED. am2 18:58 Triage completed. hb 18:58 Arm band placed on. hb 19:02 Diego Ang PA is PHCP. cp 19:02 Villa Byrd MD is Attending Physician. cp 19:03 Diego Ramirez MD is Attending Physician. cp Administered Medications: 19:00 Drug: Ondansetron PO 4 mg Route: PO; hb Outcome: 20:44 Discharge ordered by . cp 20:47 Patient left the ED. bb Signatures: Stephanie Peter, RN RN bb Diego Ang PA PA cp Baxter, Heather, RN RN Elisa Gonzalez Ivan
== END 2022-05-15 20:47 | disposition home or self-care (01) ==
LOC: ER 18:44
DX: R10.11 Right upper quadrant pain (principal); R11.2 Nausea with vomiting, unspecified
CPT/HCPCS: 99282; Q0162

== ENCOUNTER 2022-05-16 05:37 | Emergency (ER) | payer OTHER ==
--- OUTSIDE RECORDS SUMMARY | 2022-05-16 05:49 | XMS REPORT | Continuity of Care Document ---
:1960 Author Organization [facility] t Address [address] [place] [address] [place] [address] Care Team Providers Name Role Phone [facility]pless Primary Care Physician MATT SIMPSON Attending Clinician Unavailable MATT SIMPSON Attending Clinician Unavailable Doctor Unassigned, [place] Attending Clinician Unavailable WALLY KRISHNAMURTHY Attending Clinician Unavailable Natacha Brewster Attending Clinician Payers Payer Name Policy Type Policy Number Effective Date Expiration Date Sarina castelan [facility] [id number] 2017 00:00:00 PLUS Problems This patient has [...] ers OPHEN INGREDI 07-27 ity of 00:00: [place] [facility] Propensi Inactiv Reductas ty to e 2-28 e adverse 00:00: Inhibito reaction 00 rs to drug Nitrogly Propensi Active 2017-03 cerin ty to 1-08 adverse 00:00: reaction 00 to drug Social History Social Habit Start Date Stop Date Quantity Comments Source Alcohol intake 2016-05-01 2016-05-01 Current [facility] es 00:00:00 00:00:00 non-drinker of Medical nter alcohol (finding) Sex Assigned At [birth year] [facility] 00:00:00 00:00:00 [facility] Smoking Status Start Date Stop Date [...] anjelica [facility] Center OXcarbazepi 2017-0 Yes 600mg Q.[id number] Take [address] ne 2-23 [id number] [facility] (TR[facility]) 10:23: 3D mouth 3 Med ical 600 MG 59 (three) Center tablet times daily. PARoxetine 2017-0 Yes 40mg QD Take [address] (PAXIL) 40 2-23 [facility] tablet 10:23: nightly. [address] 2017-0 Yes 600mg Q.09359481 Take [address] ne 2-23 [id number] [facility] (TRILEPTAL) 10:23: 3D mouth 3 Med ical 600 MG 59 (three) Center tablet times daily. PARoxetine 2017-0 Yes 40mg QD Take [address] (PAXIL) 40 2-23 [facility] tablet 10:23: nightly. [address] 2017-0 Yes 600mg Q.92054648 Take [address] ne 2-23 [id number] [facility] (TRILEPTAL) 10:23: 3D mouth 3 Med ical 600 MG 59 (three) Center tablet times daily. PARoxetine 2017-0 Yes 40mg QD Take [address] (PAXIL) 40 2-23 [facility] tablet 10:23: nightly. [address] 2017-0 Yes 600mg Q.73019388 Take [address] ne 2-23 [id number] [facility] (TRILEPTAL) 10:23: 3D mouth 3 Med ical 600 MG 59 (three) Center tablet times daily. PARoxetine 2017-0 Yes 40mg QD Take [address] (PAXIL) 40 2-23 [facility] tablet 10:23: nightly. [address] 2017-0 Yes 600mg Q.33289238 Take [address] ne 2-23 [id number] [facility] (TRILEPTAL) 10:23: 3D mouth 3 Med ical 600 MG 59 (three) Center tablet times daily. PARoxetine 2017-0 Yes 40mg QD Take [address] (PAXIL) 40 2-23 [facility] tablet 10:23: nightly. [address] 2017-0 Yes 600mg Q.17519462 Take [address] ne 2-23 [id number] [facility] (TRILEPTAL) 10:23: 3D mouth 3 Med ical 600 MG 59 (three) Center tablet times daily. PARoxetine 2017-0 Yes 40mg QD Take [address] (PAXIL) 40 2-23 [facility] tablet 10:23: nightly. [address] 2017-0 Yes 600mg Q.35147470 Take [address] ne 2-23 [id number] [facility] (TRILEPTAL) 10:23: 3D mouth 3 Med ical 600 MG 59 (three) Center tablet times daily. PARoxetine 2017-0 Yes 40mg QD Take [address] (PAXIL) 40 2-23 [facility] tablet 10:23: nightly. [address] 2017-0 Yes 600mg Q.79931843 Take [address] ne 2-23 [id number] [facility] (TRILEPTAL) 10:23: 3D mouth 3 Med ical 600 MG 59 (three) Center tablet times daily. PARoxetine 2017-0 Yes 40mg QD Take [address] (PAXIL) 40 2-23 [facility] tablet 10:23: nightly. [address] 2017-0 Yes 600mg Q.75873792 Take [address] ne 2-23 [id number] [facility] (TRILEPTAL) 10:23: 3D mouth 3 Med ical 600 MG 59 (three) Center tablet times daily. PARoxetine 2017-0 Yes 40mg QD Take [address] (PAXIL) 40 2-23 by [facility] tablet 10:23: nightly. [address] OXcarbazepi 2017-0 Yes 600mg Q.58011911 Take [address] ne 2-23 [id number] [facility] (TRILEPTAL) 10:23: 3D mouth 3 Med ical 600 MG 59 (three) Center tablet times daily. PARoxetine 2017-0 Yes 40mg QD Take [address] (PAXIL) 40 2-23 by [facility] tablet 10:23: nightly. [address] OXcarbazepi 2017-0 Yes 600mg Q.56181516 Take [address] ne 2-23 [id number] [facility] (TRILEPTAL) 10:23: 3D mouth 3 Med ical 600 MG 59 (three) Center tablet times daily. PARoxetine 2017-0 Yes 40mg QD Take [address] (PAXIL) 40 2-23 by [facility] tablet 10:23: nightly. [facility] [address] [place] OXcarbazepi 2017-0 Yes 600mg Q.20874574 Take [address] ne 2-23 [id number] [facility] (TRILEPTAL) 10:23: 3D mouth 3 Med ical 600 MG 59 (three) Center tablet times daily. OXcarbazepi 2017-0 Yes 600mg Q.11549972 Take [address] ne 2-23 [id number] [facility] (TRILEPTAL) 10:23: 3D mouth 3 Med ical 600 MG 59 (three) Center tablet times daily. PARoxetine 2017-0 Yes 40mg QD Take [address] (PAXIL) 40 2-23 by [facility] tablet 10:23: nightly. [facility] [address] [place] OXcarbazepi 2017-0 Yes 600mg Q.26449034 Take [address] ne 2-23 [id number] [facility] (TRILEPTAL) 10:23: 3D mouth 3 Med ical 600 MG 59 (three) Center tablet times daily. PARoxetine 2017-0 Yes 40mg QD Take [address] (PAXIL) 40 2-23 by [facility] tablet 10:23: nightly. [facility] [address] [place] OXcarbazepi 2017-0 Yes 600mg Q.91639041 Take [address] ne 2-23 [id number] [facility] (TRILEPTAL) 10:23: 3D mouth 3 Med ical 600 MG 59 (three) Center tablet times daily. PARoxetine 2017-0 Yes 40mg QD Take [address] (PAXIL) 40 2-23 [facility] tablet 10:23: nightly. [facility] [address] [place] PARoxetine 2017-0 Yes 40mg QD Take [address] (PAXIL) 40 2-23 [facility] tablet 10:23: nightly. [facility] [address] [place] OXcarbazepi 2017-0 Yes 600mg Q.70372459 Take [address] ne 2-23 [id number] [facility] (TRILEPTAL) 10:23: 3D mouth 3 Med ical 600 MG 59 (three) Center tablet times daily. PARoxetine 2017-0 Yes 40mg QD Take [address] (PAXIL) 40 2-23 [facility] tablet 10:23: nightly. [facility] [address] [place] OXcarbazepi 2017-0 Yes 600mg Q.36586191 Take [address] ne 2-23 [id number] mg by [facility] (TRILEPTAL) 10:23: 3D mouth 3 Med ical 600 MG 59 (three) Center tablet times daily. PARoxetine 2017-0 Yes 40mg QD Take [address] (PAXIL) 40 2-23 by [facility] tablet 10:23: nightly. [facility] [address] [place] OXcarbazepi 2017-0 Yes 600mg Q.85492897 Take [address] ne 2-23 [id number] mg [facility] (TRILEPTAL) 10:23: 3D mouth 3 Med ical 600 MG 59 (three) Center tablet times daily. PARoxetine 2017-0 Yes 40mg QD Take [address] (PAXIL) 40 2-23 by [facility] tablet 10:23: nightly. [facility] [address] [place] OXcarbazepi 2017-0 Yes 600mg Q.77350887 Take [address] ne 2-23 [id number] mg [facility] (TRILEPTAL) 10:23: 3D mouth 3 Med ical 600 MG 59 (three) Center tablet times daily. PARoxetine 2017-0 Yes 40mg QD Take [address] (PAXIL) 40 2-23 by [facility] tablet 10:23: nightly. [facility] [address] [place] OXcarbazepi 2017-0 Yes 600mg Q.77018186 Take [address] ne 2-23 [id number] mg by [facility] (TRILEPTAL) 10:23: 3D mouth 3 Med ical 600 MG 59 (three) Center tablet times daily. PARoxetine 2017-0 Yes 40mg QD Take [address] (PAXIL) 40 2-23 by [facility] tablet 10:23: nightly. [facility] [address] [place] OXcarbazepi 2017-0 Yes 600mg Q.52408825 Take [address] ne 2-23 [id number] mg [facility] (TRILEPTAL) 10:23: 3D mouth 3 Med ical 600 MG 59 (three) Center tablet times daily. PARoxetine 2017-0 Yes 40mg QD Take [address] (PAXIL) 40 2-23 by [facility] tablet 10:23: nightly. [facility] [address] [place] OXcarbazepi 2017-0 Yes 600mg Q.37131250 Take [address] ne 2-23 [id number] mg [facility] (TRILEPTAL) 10:23: 3D mouth 3 Med ical 600 MG 59 (three) Center tablet times daily. PARoxetine 2017-0 Yes 40mg QD Take [address] (PAXIL) 40 2-23 by [facility] tablet 10:23: nightly. [facility] [address] [place] OXcarbazepi 2017-0 Yes 600mg Q.19419678 Take [address] ne 2-23 [id number] mg [facility] (TRILEPTAL) 10:23: 3D mouth 3 Med ical 600 MG 59 (three) Center tablet times daily. OXcarbazepi 2017-0 Yes 600mg Q.72236095 Take [address] ne 2-23 [id number] mg [facility] (TRILEPTAL) 10:23: 3D mouth 3 Med ical 600 MG 59 (three) Center tablet times daily. PARoxetine 2017-0 Yes 40mg QD Take [address] (PAXIL) 40 2-23 by [facility] tablet 10:23: nightly. [facility] [address] [place] OXcarbazepi 2017-0 Yes 600mg Q.74987766 Take [address] ne 2-23 [id number] [facility] (TRILEPTAL) 10:23: 3D mouth 3 Med ical 600 MG 59 (three) Center tablet times daily. PARoxetine 2017-0 Yes 40mg QD Take [address] (PAXIL) 40 2-23 by [facility] tablet 10:23: nightly. [facility] [address] [place] OXcarbazepi 2017-0 Yes 600mg Q.40584942 Take [address] ne 2-23 [id number] mg [facility] (TRILEPTAL) 10:23: 3D mouth 3 Med ical 600 MG 59 (three) Center tablet times daily. PARoxetine 2017-0 Yes 40mg QD Take [address] (PAXIL) 40 2-23 by [facility] tablet 10:23: nightly. [address] LORazepam 2017-0 Yes 1mg Take 1 [...] Goal Plan of Care Note [code = 05767-1] Goal Plan of Care Note [code = 89031-6] Goal Plan of Care Note [code = 01507-8] Goal Plan of Care Note [code = 55916-0] Goal Plan of Care Note [code = 11941-5] Goal Plan of Care Note [code = 38559-9] Goal Plan of Care Note [code = 77437-5] Goal Plan of Care Note [code = 51154-0] Goal Plan of Care Note [code = 44819-5] Goal Plan of Care Note [code = 56278-4] Goal Plan of Care Note [code = 15284-4] Goal Plan of Care Note [code = 33475-7] Goal Plan of Care Note [code = 18208-4] Goal Plan of Care Note [code = 61112-7] Goal Plan of Care Note [code = 22094-9] Goal Plan of Care Note [code = 04432-5] Goal Plan of Care Note [code = 86577-2] Goal Plan of Care Note [code = 19317-4] Goal Plan of Care Note [code = 67589-4] Goal Plan of Care Note [code = 23729-2] Goal Plan of Care Note [code = 66005-8] Goal Plan of Care Note [code = 00686-6] Goal Plan of Care Note [code = 75560-8] Goal Plan of Care Note [code = 51362-4] Goal Plan of Care Note [code = 69905-0] Goal Plan of Care Note [code = 82656-7] Goal Plan of Care Note [code = 62231-9] Goal Plan of Care Note [code = 38147-6] Goal Plan of Care Note [code = 63810-4] Goal Plan of Care Note [code = 33163-9] Goal Plan of Care Note [code = 87116-2] Goal Plan of Care Note [code = 95081-4] Goal Plan of Care Note [code = 36221-1] Goal Plan of Care Note [code = 17780-7] Goal Plan of Care Note [code = 37217-2] Goal Plan of Care Note [code = 23288-0] Goal Plan of Care Note [code = 74339-3] Goal Plan of Care Note [code = 08419-4] Goal Plan of Care Note [code = 58205-2] Goal Plan of Care Note [code = 46575-7] Goal Plan of Care Note [code = 82870-8] Goal Plan of Care Note [code = 25527-4] Goal Plan of Care Note [code = 08335-6] Goal Plan of Care Note [code = 14170-6] Goal Plan of Care Note [code = 32369-7] Goal Plan of Care Note [code = 68925-8] Goal Plan of Care Note [code = 59835-5] Goal Plan of Care Note [code = 93652-8] Goal Plan of Care Note [code = 18111-4] Goal Plan of Care Note [code = 21088-2] Goal Plan of Care Note [code = 29957-9] Goal Plan of Care Note [code = 88534-1] Goal Plan of Care Note [code = 28843-5] Goal Plan of Care Note [code = 03713-9] Goal Plan of Care Note [code = 62139-5] Goal Plan of Care Note [code = 88771-0] Goal Plan of Care Note [code = 28228-5] Goal Plan of Care Note [code = 92502-8] Goal Plan of Care Note [code = 97572-2] Goal Plan of Care Note [code = 37063-6] Goal Plan of Care Note [code = 96573-4] Goal Plan of Care Note [code = 79369-5] Goal Plan of Care Note [code = 76035-3] Goal Plan of Care Note [code = 58683-3] Goal Plan of Care Note [code = 14552-1] Goal Plan of Care Note [code = 91434-2] Goal Plan of Care Note [code = 95841-7] Goal Plan of Care Note [code = 03187-3] Goal Plan of Care Note [code = 89548-9] Goal Plan of Care Note [code = 08256-0] Goal Plan of Care Note [code = 98736-2] Goal Plan of Care Note [code = 24112-8] Goal Plan of Care Note [code = 35059-1] Goal Plan of Care Note [code = 10350-0] Goal Plan of Care Note [code = 39888-3] Goal Plan of Care Note [code = 54547-2] Goal Plan of Care Note [code = 09657-4] Goal Plan of Care Note [code = 35509-2] Goal Plan of Care Note [code = 39287-2] Goal Plan of Care Note [code = 43891-4] Goal Plan of Care Note [code = 49053-3] Goal Plan of Care Note [code = 17287-6] Goal Plan of Care Note [code = 03318-4] Goal Plan of Care Note [code = 24488-8] Goal Plan of Care Note [code = 65415-0] Goal Plan of Care Note [code = 08575-2] Goal Plan of Care Note [code = 68937-3] Goal Plan of Care Note [code = 90895-6] Goal Plan of Care Note [code = 56740-2] Goal Plan of Care Note [code = 80073-2] Goal Plan of Care Note [code = 53258-7] Goal Plan of Care Note [code = 95899-9] Goal Plan of Care Note [code = 87864-5] Goal Plan of Care Note [code = 24127-7] Goal Plan of Care Note [code = 80672-9] Goal Plan of Care Note [code = 88599-5] Goal Plan of Care Note [code = 26353-7] Goal Plan of Care Note [code = 34765-0] Goal Plan of Care Note [code = 92136-0] Goal Plan of Care Note [code = 44222-7] Goal Plan of Care Note [code = 35676-7] Goal Plan of Care Note [code = 09244-8] Goal Plan of Care Note [code = 51538-8] Goal Plan of Care Note [code = 21011-6] Goal Plan of Care Note [code = 38514-0] Goal Plan of Care Note [code = 11775-3] Goal Plan of Care Note [code = 23412-9] Goal Plan of Care Note [code = 50191-1] Goal Plan of Care Note [code = 35411-5] Goal Plan of Care Note [code = 48015-1] Goal Plan of Care Note [code = 61358-5] Goal Plan of Care Note [code = 53072-7] Goal Plan of Care Note [code = 71084-7] Goal Plan of Care Note [code = 71625-1] Goal Plan of Care Note [code = 80524-8] Goal Plan of Care Note [code = 92975-5] Goal Plan of Care Note [code = 33336-6] Goal Plan of Care Note [code = 79739-4] Goal Plan of Care Note [code = 58013-3] Goal Plan of Care Note [code = 28769-4] Goal Plan of Care Note [code = 78476-5] Goal Plan of Care Note [code = 07475-4] Goal Plan of Care Note [code = 93035-6] Goal Plan of Care Note [code = 88691-7] Goal Plan of Care Note [code = 80484-3] Goal Plan of Care Note [code = 25520-6] Goal Plan of Care Note [code = 70711-8] Goal Plan of Care Note [code = 48388-0] Goal Plan of Care Note [code = 30762-0] Goal Plan of Care Note [code = 99233-1] Goal Plan of Care Note [code = 13946-7] Goal Plan of Care Note [code = 12527-8] Goal Plan of Care Note [code = 73912-9] Goal Plan of Care Note [code = 37739-8] Goal Plan of Care Note [code = 59461-4] Goal Plan of Care Note [code = 78006-0] Goal Plan of Care Note [code = 30587-6] Goal Plan of Care Note [code = 81021-5] Goal Plan of Care Note [code = 31267-5] Goal Plan of Care Note [code = 50845-9] Goal Plan of Care Note [code = 54308-8] Goal Plan of Care Note [code = 30276-4] Goal Plan of Care Note [code = 19776-8] Goal Plan of Care Note [code = 16257-5] Goal Plan of Care Note [code = 27254-4] Goal Plan of Care Note [code = 42811-0] Goal Plan of Care Note [code = 75440-3] Goal Plan of Care Note [code = 76412-7] Goal Plan of Care Note [code = 87777-9] Goal Plan of Care Note [code = 56596-9] Goal Plan of Care Note [code = 96471-4] Goal Plan of Care Note [code = 90944-6] Goal Plan of Care Note [code = 66260-0] Goal Plan of Care Note [code = 87710-7] Goal Plan of Care Note [code = 48465-4] Goal Plan of Care Note [code = 24450-8] Goal Plan of Care Note [code = 41224-6] Goal Plan of Care Note [code = 27224-3] Goal Plan of Care Note [code = 48750-1] Goal Plan of Care Note [code = 10592-4] Goal Plan of Care Note [code = 68537-5] Goal Plan of Care Note [code = 06416-6] Goal Plan of Care Note [code = 21596-2] Goal Plan of Care Note [code = 40674-6] Goal Plan of Care Note [code = 39486-0] Goal Plan of Care Note [code = 65883-9] Goal Plan of Care Note [code = 67790-0] Goal Plan of Care Note [code = 61875-8] Goal Plan of Care Note [code = 77212-6] Goal Plan of Care Note [code = 08390-8] Goal Plan of Care Note [code = 87394-3] Goal Plan of Care Note [code = 35105-5] Goal Plan of Care Note [code = 03014-2] Goal Plan of Care Note [code = 42056-5] Goal Plan of Care Note [code = 32065-7] Goal Plan of Care Note [code = 71620-5] Goal Plan of Care Note [code = 25175-1] Goal Plan of Care Note [code = 96143-6] Goal Plan of Care Note [code = 65925-8] Goal Plan of Care Note [code = 27576-5] Goal Plan of Care Note [code = 54062-9] Goal Plan of Care Note [code = 28603-9] Goal Plan of Care Note [code = 40268-3] Goal Plan of Care Note [code = 55519-0] Goal Plan of Care Note [code = 01493-1] Goal Plan of Care Note [code = 63086-7] Goal Plan of Care Note [code = 52504-9] Goal Plan of Care Note [code = 79430-5] Goal Plan of Care Note [code = 28117-3] Goal Plan of Care Note [code = 61225-7] Goal Plan of Care Note [code = 12927-0] Goal Plan of Care Note [code = 46227-1] Goal Plan of Care Note [code = 90524-3] Goal Plan of Care Note [code = 16915-8] Goal Plan of Care Note [code = 77686-8] Goal Plan of Care Note [code = 61267-2] Goal Plan of Care Note [code = 71780-1] Goal Plan of Care Note [code = 01746-4] Goal Plan of Care Note [code = 16732-9] Goal Plan of Care Note [code = 60294-9] Goal Plan of Care Note [code = 53592-9] Goal Plan of Care Note [code = 73227-3] Goal Plan of Care Note [code = 27452-3] Goal Plan of Care Note [code = 18066-4] Goal Plan of Care Note [code = 92732-1] Goal Plan of Care Note [code = 41987-2] Goal Plan of Care Note [code = 74127-5] Goal Plan of Care Note [code = 42340-8] Encounters Start End Encounter Admission Attending Care Care Encounter Source Date/Time Date/Time Type Type Clinicians Facility Department ID 2021-06-01 Outpatient [facility] [id number] [place] 01:36:29 [id number] [facility] 2022-02-11 2022-02-11 Outpatient [facility]FA SFA [id number] 022 Cristian 09:04:48 09:04:48 1206 F Jerman 2022-02-10 2022-02-10 Outpatient [facility]FA SFA [id number] 022 Cristian 09:29:34 09:29:34 1205 F Jerman 2022-02-10 2022-02-10 Outpatient [id number]- [id number] 9c94z1-9 00:00:00 00:00:00 Visit 4089-4cab 089-4cab-9 -1re9-c2c bf5-p0j367 867ybdv86 bafa93 2022-01-10 2022-01-10 Outpatient [facility] SFA [id number] 022 Cristian 09:16:14 09:16:14 1104 F Jerman 2022-01-10 2022-01-10 Outpatient m1kzrme0- [id number] accaa6-a 00:00:00 00:00:00 Visit aca9-4c83 ca9-4c83-a -p3gm-lw8 7eb-bc13f3 2g5z316f0 f032f9 2021-12-19 2021-12-19 Outpatient SFA SFA [id number] 022 Cristian 16:11:31 16:11:31 1013 F Jerman 2021-12-19 2021-12-19 Outpatient [id number]- [id number] [id number] 00:00:00 00:00:00 Visit u497-364s 770-441f-a -adae-62b amelia-62bace kapnc95jj fd81af 2021-09-17 2021-09-17 Outpatient cyz7godi- [id number] x0lgos-4 00:00:00 00:00:00 Visit 935a-4f50 35a-4f50-b -b77d-j7n 77d-c2ba85 [id number] 1264a6 2020-08-03 2020-08-03 Outpatient Bertin MATT SIMPSON [facility] [id number] [facility] 10:00:00 10:00:00 MATT SIMPSON [facility] 2020-07-25 2020-07-25 Orders Doctor ABE [id number] 00:00:00 00:00:00 Only Unassigned, BK 350.1.13.10 [facility] 4.2.7.2.686 [id number] 2019-09-26 2019-09-26 Outpatient Bertin KRISHNAMURTHY [facility] [id number] [facility] 16:00:00 16:00:00 WALLY [facility] 2018-10-21 2018-10-21 Telephone [facility] [id number] 00:00:00 00:00:00 Natacha Nguyen 350.1.13.10 Ade 4.2.7.2.686 Proffarzanehio [id number] [facility] 204 [facility] Results Test Description Test Time Test Comments Results Result Comments Source TSH, THIRD GENERATION 2021-06-27 05:15:49 Test Item Value Reference Range Interpretation Comme nts TSH, THIRD GENERATION (test code = 2821) 2.080 UIU/ML 0.400-4.100 HEMOGLOBIN [id number] 03:46:00 Test Item Value Reference Range Interpretation Comments HEMOGLOBIN A1c (test 6.6 % 4.2-5.6 H [employer] [employer] DIABETES code = 54965) ASSOCIATION IDELINES FOR HGB A1C: PREDIABETES/INC REASED [...] INDICATED, ALL TESTING PER FORMED ATCLINICAL PATH [facility] [place]. [address] [address] 5273 LABORATORY DIRE CTOR: DIANA RUSS M.D. CLIA NUMBER [id number] [facility] [place]. [id number] LIPID [id number] 02:59:52 Test Item Value Reference Range Interpretation [...] MOREINFORMATION , SEE CLIENT ANNOUNCE MENT AT [email or web address] RISK RATIO LDL/HDL 4.02 RATIO <3.22 H (test code = 2238) [id number] 00:00:00 Test Item Value Reference Range Interpretation Comments TSH, THIRD GENERATION (test code 2.080 UIU/ML = 2821) [id number] 00:00:00 Test Item Value Reference Range Interpretation Comments TSH, THIRD GENERATION (test code 2.080 UIU/ML = 2821) [id number] 00:00:00 Test Item Value Reference Range Interpretation Comments TSH, THIRD GENERATION (test code 2.080 UIU/ML = 2821) LIPID [id number] 00:00:00 Test Item Value Reference Range Interpretation Comments CHOLESTEROL (test code = 2210) 292 MG/DL TRIGLYCERIDES (test code = 2232) 184 MG/DL HDL CHOLESTEROL (test code = 2220) 51 MG/DL CALC LDL CHOL (test code = 2237) 205 MG/DL RISK RATIO LDL/HDL (test code = 4.02 RATIO 2238) LIPID [id number] 00:00:00 Test Item Value Reference Range Interpretation Comments CHOLESTEROL (test code = 2210) 292 MG/DL TRIGLYCERIDES (test code = 2232) 184 MG/DL HDL CHOLESTEROL (test code = 2220) 51 MG/DL CALC LDL CHOL (test code = 2237) 205 MG/DL RISK RATIO LDL/HDL (test code = 4.02 RATIO 2238) HEMOGLOBIN [id number] 00:00:00 Test Item Value Reference Range Interpretation Comments HEMOGLOBIN A1c (test code = 83451) 6.6 % HEMOGLOBIN [id number] 00:00:00 Test Item Value Reference Range Interpretation Comments HEMOGLOBIN A1c (test code = 71361) 6.6 % HEMOGLOBIN [id number] 00:00:00 Test Item Value Reference Range Interpretation Comments HEMOGLOBIN A1c (test code = 05336) 6.6 % [id number] 00:00:00 Test Item Value Reference Range Interpretation Comments TSH, THIRD GENERATION (test code 2.080 UIU/ML = 2821) [id number] 00:00:00 Test Item Value Reference Range Interpretation Comments TSH, THIRD GENERATION (test code 2.080 UIU/ML = 2821) [id number] 00:00:00 Test Item Value Reference Range Interpretation Comments TSH, THIRD GENERATION (test code 2.080 UIU/ML = 2821) LIPID [id number] 00:00:00 Test Item Value Reference Range Interpretation Comments CHOLESTEROL (test code = 2210) 292 MG/DL TRIGLYCERIDES (test code = 2232) 184 MG/DL HDL CHOLESTEROL (test code = 2220) 51 MG/DL CALC LDL CHOL (test code = 2237) 205 MG/DL RISK RATIO LDL/HDL (test code = 4.02 RATIO 2238) LIPID [id number] 00:00:00 Test Item Value Reference Range Interpretation Comments CHOLESTEROL (test code = 2210) 292 MG/DL TRIGLYCERIDES (test code = 2232) 184 MG/DL HDL CHOLESTEROL (test code = 2220) 51 MG/DL CALC LDL CHOL (test code = 2237) 205 MG/DL RISK RATIO LDL/HDL (test code = 4.02 RATIO 2238) HEMOGLOBIN [id number] 00:00:00 Test Item Value Reference Range Interpretation Comments HEMOGLOBIN A1c (test code = 83436) 6.6 % HEMOGLOBIN [id number] 00:00:00 Test Item Value Reference Range Interpretation Comments HEMOGLOBIN A1c (test code = 45973) 6.6 % HEMOGLOBIN [id number] 00:00:00 Test Item Value Reference Range Interpretation Comments HEMOGLOBIN A1c (test code = 39824) 6.6 % [id number] 00:00:00 Test Item Value Reference Range Interpretation Comments TSH, THIRD GENERATION (test code 2.080 UIU/ML = 2821) [id number] 00:00:00 Test Item Value Reference Range Interpretation Comments TSH, THIRD GENERATION (test code 2.080 UIU/ML = 2821) LIPID [id number] 00:00:00 Test Item Value Reference Range Interpretation Comments CHOLESTEROL (test code = 2210) 292 MG/DL TRIGLYCERIDES (test code = 2232) 184 MG/DL HDL CHOLESTEROL (test code = 2220) 51 MG/DL CALC LDL CHOL (test code = 2237) 205 MG/DL RISK RATIO LDL/HDL (test code = 4.02 RATIO 2238) HEMOGLOBIN [id number] 00:00:00 Test Item Value Reference Range Interpretation Comments HEMOGLOBIN A1c (test code = 81724) 6.6 % HEMOGLOBIN [id number] 00:00:00 Test Item Value Reference Range Interpretation Comments HEMOGLOBIN A1c (test code = 95437) 6.6 % [id number] 00:00:00 Test Item Value Reference Range Interpretation Comments TSH, THIRD GENERATION (test code 2.080 UIU/ML = 2821) [id number] 00:00:00 Test Item Value Reference Range Interpretation Comments TSH, THIRD GENERATION (test code 2.080 UIU/ML = 2821) [id number] 00:00:00 Test Item Value Reference Range Interpretation Comments TSH, THIRD GENERATION (test code 2.080 UIU/ML = 2821) LIPID [id number] 00:00:00 Test Item Value Reference Range Interpretation Comments CHOLESTEROL (test code = 2210) 292 MG/DL TRIGLYCERIDES (test code = 2232) 184 MG/DL HDL CHOLESTEROL (test code = 2220) 51 MG/DL CALC LDL CHOL (test code = 2237) 205 MG/DL RISK RATIO LDL/HDL (test code = 4.02 RATIO 2238) LIPID [id number] 00:00:00 Test Item Value Reference Range Interpretation Comments CHOLESTEROL (test code = 2210) 292 MG/DL TRIGLYCERIDES (test code = 2232) 184 MG/DL HDL CHOLESTEROL (test code = 2220) 51 MG/DL CALC LDL CHOL (test code = 2237) 205 MG/DL RISK RATIO LDL/HDL (test code = 4.02 RATIO 2238) HEMOGLOBIN [id number] 00:00:00 Test Item Value Reference Range Interpretation Comments HEMOGLOBIN A1c (test code = 75713) 6.6 % HEMOGLOBIN [id number] 00:00:00 Test Item Value Reference Range Interpretation Comments HEMOGLOBIN A1c (test code = 37357) 6.6 % HEMOGLOBIN [id number] 00:00:00 Test Item Value Reference Range Interpretation Comments HEMOGLOBIN A1c (test code = 90672) 6.6 % HEMOGLOBIN [id number] 00:00:00 Test Item Value Reference Range Interpretation Comments HEMOGLOBIN A1c (test code = 92250) 6.8 % HEMOGLOBIN [id number] 00:00:00 Test Item Value Reference Range Interpretation Comments HEMOGLOBIN A1c (test code = 56434) 6.8 % HEMOGLOBIN [id number] 00:00:00 Test Item Value Reference Range Interpretation Comments HEMOGLOBIN A1c (test code = 02261) 6.8 % LIPID [id number] 00:00:00 Test Item Value Reference Range Interpretation Comments CHOLESTEROL (test code = 2210) 303 MG/DL TRIGLYCERIDES (test code = 2232) 191 MG/DL HDL CHOLESTEROL (test code = 2220) 61 MG/DL CALC LDL CHOL (test code = 2237) 205 MG/DL RISK RATIO LDL/HDL (test code = 3.36 RATIO 2238) LIPID [id number] 00:00:00 Test Item Value Reference Range Interpretation Comments CHOLESTEROL (test code = 2210) 303 MG/DL TRIGLYCERIDES (test code = 2232) 191 MG/DL HDL CHOLESTEROL (test code = 2220) 61 MG/DL CALC LDL CHOL (test code = 2237) 205 MG/DL RISK RATIO LDL/HDL (test code = 3.36 RATIO 2238) [id number] 00:00:00 Test Item Value Reference Range Interpretation Comments TSH, THIRD GENERATION (test code 0.769 UIU/ML = 2821) [id number] 00:00:00 Test Item Value Reference Range Interpretation Comments TSH, THIRD GENERATION (test code 0.769 UIU/ML = 2821) [id number] 00:00:00 Test Item Value Reference Range Interpretation Comments TSH, THIRD GENERATION (test code 0.769 UIU/ML = 2821) COMPREHENSIVE METABOLIC [id number] 00:00:00 Test Item Value Reference Range Interpretation Comments GLUCOSE (test code = 2217) 131 MG/DL BUN (test code = 2208) 13 MG/DL CREATININE (test code = 2214) 0.65 MG/DL eGFR AMER. (test code 113 ML/MIN/1.73 = 23534) eGFR NON- AMER. (test 97 ML/MIN/1.73 code = 73329) CALC BUN/CREAT (test code = 20 RATIO [...] code = 2219) 23 U/L COMPREHENSIVE METABOLIC [id number] 00:00:00 Test Item Value Reference Range Interpretation Comments GLUCOSE (test code = 2217) 131 MG/DL BUN (test code = 2208) 13 MG/DL CREATININE (test code = 2214) 0.65 MG/DL eGFR AMER. (test code 113 ML/MIN/1.73 = 12914) eGFR NON- AMER. (test 97 ML/MIN/1.73 code = 85548) CALC BUN/CREAT (test code = 20 RATIO [...] (test code = 2219) 23 U/L HEMOGLOBIN [id number] 00:00:00 Test Item Value Reference Range Interpretation Comments HEMOGLOBIN A1c (test code = 18315) 6.8 % HEMOGLOBIN [id number] 00:00:00 Test Item Value Reference Range Interpretation Comments HEMOGLOBIN A1c (test code = 97280) 6.8 % HEMOGLOBIN [id number] 00:00:00 Test Item Value Reference Range Interpretation Comments HEMOGLOBIN A1c (test code = 41543) 6.8 % LIPID [id number] 00:00:00 Test Item Value Reference Range Interpretation Comments CHOLESTEROL (test code = 2210) 303 MG/DL TRIGLYCERIDES (test code = 2232) 191 MG/DL HDL CHOLESTEROL (test code = 2220) 61 MG/DL CALC LDL CHOL (test code = 2237) 205 MG/DL RISK RATIO LDL/HDL (test code = 3.36 RATIO 2238) LIPID [id number] 00:00:00 Test Item Value Reference Range Interpretation Comments CHOLESTEROL (test code = 2210) 303 MG/DL TRIGLYCERIDES (test code = 2232) 191 MG/DL HDL CHOLESTEROL (test code = 2220) 61 MG/DL CALC LDL CHOL (test code = 2237) 205 MG/DL RISK RATIO LDL/HDL (test code = 3.36 RATIO 2238) [id number] 00:00:00 Test Item Value Reference Range Interpretation Comments TSH, THIRD GENERATION (test code 0.769 UIU/ML = 2821) [id number] 00:00:00 Test Item Value Reference Range Interpretation Comments TSH, THIRD GENERATION (test code 0.769 UIU/ML = 2821) [id number] 00:00:00 Test Item Value Reference Range Interpretation Comments TSH, THIRD GENERATION (test code 0.769 UIU/ML = 2821) COMPREHENSIVE METABOLIC [id number] 00:00:00 Test Item Value Reference Range Interpretation Comments GLUCOSE (test code = 2217) 131 MG/DL BUN (test code = 2208) 13 MG/DL CREATININE (test code = 2214) 0.65 MG/DL eGFR AMER. (test code 113 ML/MIN/1.73 = 97644) eGFR NON- AMER. (test 97 ML/MIN/1.73 code = 37290) CALC BUN/CREAT (test code = 20 RATIO [...] code = 2219) 23 U/L COMPREHENSIVE METABOLIC [id number] 00:00:00 Test Item Value Reference Range Interpretation Comments GLUCOSE (test code = 2217) 131 MG/DL BUN (test code = 2208) 13 MG/DL CREATININE (test code = 2214) 0.65 MG/DL eGFR AMER. (test code 113 ML/MIN/1.73 = 82866) eGFR NON- AMER. (test 97 ML/MIN/1.73 code = 01606) CALC BUN/CREAT (test code = 20 RATIO [...] (test code = 2219) 23 U/L HEMOGLOBIN [id number] 00:00:00 Test Item Value Reference Range Interpretation Comments HEMOGLOBIN A1c (test code = 31999) 6.8 % HEMOGLOBIN [id number] 00:00:00 Test Item Value Reference Range Interpretation Comments HEMOGLOBIN A1c (test code = 28459) 6.8 % LIPID [id number] 00:00:00 Test Item Value Reference Range Interpretation Comments CHOLESTEROL (test code = 2210) 303 MG/DL TRIGLYCERIDES (test code = 2232) 191 MG/DL HDL CHOLESTEROL (test code = 2220) 61 MG/DL CALC LDL CHOL (test code = 2237) 205 MG/DL RISK RATIO LDL/HDL (test code = 3.36 RATIO 2238) [id number] 00:00:00 Test Item Value Reference Range Interpretation Comments TSH, THIRD GENERATION (test code 0.769 UIU/ML = 2821) [id number] 00:00:00 Test Item Value Reference Range Interpretation Comments TSH, THIRD GENERATION (test code 0.769 UIU/ML = 2821) COMPREHENSIVE METABOLIC [id number] 00:00:00 Test Item Value Reference Range Interpretation Comments GLUCOSE (test code = 2217) 131 MG/DL BUN (test code = 2208) 13 MG/DL CREATININE (test code = 2214) 0.65 MG/DL eGFR AMER. (test code 113 ML/MIN/1.73 = 45820) eGFR NON- AMER. (test 97 ML/MIN/1.73 code = 43331) CALC BUN/CREAT (test code = 20 RATIO [...] (test code = 2219) 23 U/L HEMOGLOBIN [id number] 00:00:00 Test Item Value Reference Range Interpretation Comments HEMOGLOBIN A1c (test code = 12344) 6.8 % HEMOGLOBIN [id number] 00:00:00 Test Item Value Reference Range Interpretation Comments HEMOGLOBIN A1c (test code = 44513) 6.8 % HEMOGLOBIN [id number] 00:00:00 Test Item Value Reference Range Interpretation Comments HEMOGLOBIN A1c (test code = 91428) 6.8 % LIPID [id number] 00:00:00 Test Item Value Reference Range Interpretation Comments CHOLESTEROL (test code = 2210) 303 MG/DL TRIGLYCERIDES (test code = 2232) 191 MG/DL HDL CHOLESTEROL (test code = 2220) 61 MG/DL CALC LDL CHOL (test code = 2237) 205 MG/DL RISK RATIO LDL/HDL (test code = 3.36 RATIO 2238) LIPID [id number] 00:00:00 Test Item Value Reference Range Interpretation Comments CHOLESTEROL (test code = 2210) 303 MG/DL TRIGLYCERIDES (test code = 2232) 191 MG/DL HDL CHOLESTEROL (test code = 2220) 61 MG/DL CALC LDL CHOL (test code = 2237) 205 MG/DL RISK RATIO LDL/HDL (test code = 3.36 RATIO 2238) [id number] 00:00:00 Test Item Value Reference Range Interpretation Comments TSH, THIRD GENERATION (test code 0.769 UIU/ML = 2821) [id number] 00:00:00 Test Item Value Reference Range Interpretation Comments TSH, THIRD GENERATION (test code 0.769 UIU/ML = 2821) [id number] 00:00:00 Test Item Value Reference Range Interpretation Comments TSH, THIRD GENERATION (test code 0.769 UIU/ML = 2821) COMPREHENSIVE METABOLIC [id number] 00:00:00 Test Item Value Reference Range Interpretation Comments GLUCOSE (test code = 2217) 131 MG/DL BUN (test code = 2208) 13 MG/DL CREATININE (test code = 2214) 0.65 MG/DL eGFR AMER. (test code 113 ML/MIN/1.73 = 74513) eGFR NON- AMER. (test 97 ML/MIN/1.73 code = 68454) CALC BUN/CREAT (test code = 20 RATIO [...] code = 2219) 23 U/L COMPREHENSIVE METABOLIC [id number] 00:00:00 Test Item Value Reference Range Interpretation Comments GLUCOSE (test code = 2217) 131 MG/DL BUN (test code = 2208) 13 MG/DL CREATININE (test code = 2214) 0.65 MG/DL eGFR AMER. (test code 113 ML/MIN/1.73 = 60216) eGFR NON- AMER. (test 97 ML/MIN/1.73 code = 73094) CALC BUN/CREAT (test code = 20 RATIO [...] (test code = 2219) 23 U/L HEMOGLOBIN [id number] 00:00:00 Test Item Value Reference Range Interpretation Comments HEMOGLOBIN A1c (test code = 07766) 6.6 % HEMOGLOBIN [id number] 00:00:00 Test Item Value Reference Range Interpretation Comments HEMOGLOBIN A1c (test code = 97859) 6.6 % HEMOGLOBIN [id number] 00:00:00 Test Item Value Reference Range Interpretation Comments HEMOGLOBIN A1c (test code = 05273) 6.6 % LIPID [id number] 00:00:00 Test Item Value Reference Range Interpretation Comments CHOLESTEROL (test code = 2210) 261 MG/DL TRIGLYCERIDES (test code = 2232) 159 MG/DL HDL CHOLESTEROL (test code = 2220) 82 MG/DL CALC LDL CHOL (test code = 2237) 150 MG/DL RISK RATIO LDL/HDL (test code = 1.83 RATIO 2238) LIPID [id number] 00:00:00 Test Item Value Reference Range Interpretation Comments CHOLESTEROL (test code = 2210) 261 MG/DL TRIGLYCERIDES (test code = 2232) 159 MG/DL HDL CHOLESTEROL (test code = 2220) 82 MG/DL CALC LDL CHOL (test code = 2237) 150 MG/DL RISK RATIO LDL/HDL (test code = 1.83 RATIO 2238) COMPREHENSIVE METABOLIC [id number] 00:00:00 Test Item Value Reference Range Interpretation Comments GLUCOSE (test code = 2217) 144 MG/DL BUN (test code = 2208) 15 MG/DL CREATININE (test code = 2214) 0.85 MG/DL eGFR AMER. (test code 87 ML/MIN/1.73 = 27953) eGFR NON- AMER. (test 75 ML/MIN/1.73 code = 94944) CALC BUN/CREAT (test code = 18 RATIO [...] code = 2219) 50 U/L COMPREHENSIVE METABOLIC [id number] 00:00:00 Test Item Value Reference Range Interpretation Comments GLUCOSE (test code = 2217) 144 MG/DL BUN (test code = 2208) 15 MG/DL CREATININE (test code = 2214) 0.85 MG/DL eGFR AMER. (test code 87 ML/MIN/1.73 = 79061) eGFR NON- AMER. (test 75 ML/MIN/1.73 code = 05241) CALC BUN/CREAT (test code = 18 RATIO [...] THYROX. BIND. CAPAC. (test code 1.1 = 17052) T4 (THYROXINE) (test code = 4.3 UG/DL 2819) CORRECTED T4 (FTI) (test code = 3.9 UG/DL 2820) TSH, THIRD GENERATION (test 18.900 UIU/ML code = 2821) THYROID II PROFILE (T3U, T4, T7, TSH)2020-05-23 00:00:00 Test Item Value Reference Range Interpretation Comments T-UPTAKE (test code = 2817) 30.2 % THYROX. BIND. CAPAC. (test code 1.1 = 82121) T4 (THYROXINE) (test code = 4.3 UG/DL 2819) CORRECTED T4 (FTI) (test code = 3.9 UG/DL 2820) TSH, THIRD GENERATION (test 18.900 UIU/ML code = 2821) HEMOGLOBIN [id number] 00:00:00 Test Item Value Reference Range Interpretation Comments HEMOGLOBIN A1c (test code = 97989) 6.6 % HEMOGLOBIN [id number] 00:00:00 Test Item Value Reference Range Interpretation Comments HEMOGLOBIN A1c (test code = 54618) 6.6 % HEMOGLOBIN [id number] 00:00:00 Test Item Value Reference Range Interpretation Comments HEMOGLOBIN A1c (test code = 00272) 6.6 % LIPID [id number] 00:00:00 Test Item Value Reference Range Interpretation Comments CHOLESTEROL (test code = 2210) 261 MG/DL TRIGLYCERIDES (test code = 2232) 159 MG/DL HDL CHOLESTEROL (test code = 2220) 82 MG/DL CALC LDL CHOL (test code = 2237) 150 MG/DL RISK RATIO LDL/HDL (test code = 1.83 RATIO 2238) LIPID [id number] 00:00:00 Test Item Value Reference Range Interpretation Comments CHOLESTEROL (test code = 2210) 261 MG/DL TRIGLYCERIDES (test code = 2232) 159 MG/DL HDL CHOLESTEROL (test code = 2220) 82 MG/DL CALC LDL CHOL (test code = 2237) 150 MG/DL RISK RATIO LDL/HDL (test code = 1.83 RATIO 2238) COMPREHENSIVE METABOLIC [id number] 00:00:00 Test Item Value Reference Range Interpretation Comments GLUCOSE (test code = 2217) 144 MG/DL BUN (test code = 2208) 15 MG/DL CREATININE (test code = 2214) 0.85 MG/DL eGFR AMER. (test code 87 ML/MIN/1.73 = 39578) eGFR NON- AMER. (test 75 ML/MIN/1.73 code = 76724) CALC BUN/CREAT (test code = 18 RATIO [...] code = 2219) 50 U/L COMPREHENSIVE METABOLIC [id number] 00:00:00 Test Item Value Reference Range Interpretation Comments GLUCOSE (test code = 2217) 144 MG/DL BUN (test code = 2208) 15 MG/DL CREATININE (test code = 2214) 0.85 MG/DL eGFR AMER. (test code 87 ML/MIN/1.73 = 88252) eGFR NON- AMER. (test 75 ML/MIN/1.73 code = 11699) CALC BUN/CREAT (test code = 18 RATIO [...] THYROX. BIND. CAPAC. (test code 1.1 = 51383) T4 (THYROXINE) (test code = 4.3 UG/DL 2819) CORRECTED T4 (FTI) (test code = 3.9 UG/DL 2820) TSH, THIRD GENERATION (test 18.900 UIU/ML code = 2821) THYROID II PROFILE (T3U, T4, T7, TSH)2020-05-23 00:00:00 Test Item Value Reference Range Interpretation Comments T-UPTAKE (test code = 7) 30.2 % THYROX. BIND. CAPAC. (test code 1.1 = 04849) T4 (THYROXINE) (test code = 4.3 UG/DL 2819) CORRECTED T4 (FTI) (test code = 3.9 UG/DL 2820) TSH, THIRD GENERATION (test 18.900 UIU/ML code = 2821) HEMOGLOBIN [id number] 00:00:00 Test Item Value Reference Range Interpretation Comments HEMOGLOBIN A1c (test code = 47395) 6.6 % HEMOGLOBIN [id number] 00:00:00 Test Item Value Reference Range Interpretation Comments HEMOGLOBIN A1c (test code = 71596) 6.6 % LIPID [id number] 00:00:00 Test Item Value Reference Range Interpretation Comments CHOLESTEROL (test code = 2210) 261 MG/DL TRIGLYCERIDES (test code = 2232) 159 MG/DL HDL CHOLESTEROL (test code = 2220) 82 MG/DL CALC LDL CHOL (test code = 2237) 150 MG/DL RISK RATIO LDL/HDL (test code = 1.83 RATIO 2238) COMPREHENSIVE METABOLIC [id number] 00:00:00 Test Item Value Reference Range Interpretation Comments GLUCOSE (test code = 2217) 144 MG/DL BUN (test code = 2208) 15 MG/DL CREATININE (test code = 2214) 0.85 MG/DL eGFR AMER. (test code 87 ML/MIN/1.73 = 66770) eGFR NON- AMER. (test 75 ML/MIN/1.73 code = 96538) CALC BUN/CREAT (test code = 18 RATIO [...] THYROX. BIND. CAPAC. (test code 1.1 = 56791) T4 (THYROXINE) (test code = 4.3 UG/DL 2819) CORRECTED T4 (FTI) (test code = 3.9 UG/DL 2820) TSH, THIRD GENERATION (test 18.900 UIU/ML code = 2821) HEMOGLOBIN [id number] 00:00:00 Test Item Value Reference Range Interpretation Comments HEMOGLOBIN A1c (test code = 95744) 6.6 % HEMOGLOBIN [id number] 00:00:00 Test Item Value Reference Range Interpretation Comments HEMOGLOBIN A1c (test code = 02507) 6.6 % HEMOGLOBIN [id number] 00:00:00 Test Item Value Reference Range Interpretation Comments HEMOGLOBIN A1c (test code = 58949) 6.6 % LIPID [id number] 00:00:00 Test Item Value Reference Range Interpretation Comments CHOLESTEROL (test code = 2210) 261 MG/DL TRIGLYCERIDES (test code = 2232) 159 MG/DL HDL CHOLESTEROL (test code = 2220) 82 MG/DL CALC LDL CHOL (test code = 2237) 150 MG/DL RISK RATIO LDL/HDL (test code = 1.83 RATIO 2238) LIPID [id number] 00:00:00 Test Item Value Reference Range Interpretation Comments CHOLESTEROL (test code = 2210) 261 MG/DL TRIGLYCERIDES (test code = 2232) 159 MG/DL HDL CHOLESTEROL (test code = 2220) 82 MG/DL CALC LDL CHOL (test code = 2237) 150 MG/DL RISK RATIO LDL/HDL (test code = 1.83 RATIO 2238) COMPREHENSIVE METABOLIC [id number] 00:00:00 Test Item Value Reference Range Interpretation Comments GLUCOSE (test code = 2217) 144 MG/DL BUN (test code = 2208) 15 MG/DL CREATININE (test code = 2214) 0.85 MG/DL eGFR AMER. (test code 87 ML/MIN/1.73 = 62381) eGFR NON- AMER. (test 75 ML/MIN/1.73 code = 63877) CALC BUN/CREAT (test code = 18 RATIO [...] code = 2219) 50 U/L COMPREHENSIVE METABOLIC [id number] 00:00:00 Test Item Value Reference Range Interpretation Comments GLUCOSE (test code = 2217) 144 MG/DL BUN (test code = 2208) 15 MG/DL CREATININE (test code = 2214) 0.85 MG/DL eGFR AMER. (test code 87 ML/MIN/1.73 = 65802) eGFR NON- AMER. (test 75 ML/MIN/1.73 code = 83279) CALC BUN/CREAT (test code = 18 RATIO [...] THYROX. BIND. CAPAC. (test code 1.1 = 50827) T4 (THYROXINE) (test code = 4.3 UG/DL 2819) CORRECTED T4 (FTI) (test code = 3.9 UG/DL 2820) TSH, THIRD GENERATION (test 18.900 UIU/ML code = 2821) THYROID II PROFILE (T3U, T4, T7, TSH)2020-05-23 00:00:00 Test Item Value Reference Range Interpretation Comments T-UPTAKE (test code = 7) 30.2 % THYROX. BIND. CAPAC. (test code 1.1 = 69596) T4 (THYROXINE) (test code = 4.3 UG/DL 2819) CORRECTED T4 (FTI) (test code = 3.9 UG/DL 2820) TSH, THIRD GENERATION (test 18.900 UIU/ML code = 2821) HEMOGLOBIN [id number] 00:00:00 Test Item Value Reference Range Interpretation Comments HEMOGLOBIN A1c (test code = 59387) 6.7 % HEMOGLOBIN [id number] 00:00:00 Test Item Value Reference Range Interpretation Comments HEMOGLOBIN A1c (test code = 14893) 6.7 % HEMOGLOBIN [id number] 00:00:00 Test Item Value Reference Range Interpretation Comments HEMOGLOBIN A1c (test code = 70022) 6.7 % LIPID [id number] 00:00:00 Test Item Value Reference Range Interpretation Comments CHOLESTEROL (test code = 2210) 267 MG/DL TRIGLYCERIDES (test code = 2232) 137 MG/DL HDL CHOLESTEROL (test code = 2220) 48 MG/DL CALC LDL CHOL (test code = 2237) 192 MG/DL RISK RATIO LDL/HDL (test code = 4.00 RATIO 2238) LIPID [id number] 00:00:00 Test Item Value Reference Range Interpretation Comments CHOLESTEROL (test code = 2210) 267 MG/DL TRIGLYCERIDES (test code = 2232) 137 MG/DL HDL CHOLESTEROL (test code = 2220) 48 MG/DL CALC LDL CHOL (test code = 2237) 192 MG/DL RISK RATIO LDL/HDL (test code = 4.00 RATIO 2238) COMPREHENSIVE METABOLIC [id number] 00:00:00 Test Item Value Reference Range Interpretation Comments GLUCOSE (test code = 2217) 155 MG/DL BUN (test code = 2208) 14 MG/DL CREATININE (test code = 2214) 0.52 MG/DL eGFR AMER. (test code 122 ML/MIN/1.73 = 99718) eGFR NON- AMER. (test 105 ML/MIN/1.73 code = 45452) CALC BUN/CREAT (test code = 27 RATIO [...] code = 2219) 27 U/L COMPREHENSIVE METABOLIC [id number] 00:00:00 Test Item Value Reference Range Interpretation Comments GLUCOSE (test code = 2217) 155 MG/DL BUN (test code = 2208) 14 MG/DL CREATININE (test code = 2214) 0.52 MG/DL eGFR AMER. (test code 122 ML/MIN/1.73 = 24668) eGFR NON- AMER. (test 105 ML/MIN/1.73 code = 75784) CALC BUN/CREAT (test code = 27 RATIO [...] THYROX. BIND. CAPAC. (test code 1.0 = 49935) T4 (THYROXINE) (test code = 4.7 UG/DL 2819) CORRECTED T4 (FTI) (test code = 4.7 UG/DL 2820) TSH, THIRD GENERATION (test code 0.201 UIU/ML = 2821) THYROID II PROFILE (T3U, T4, T7, TSH)2019 00:00:00 Test Item Value Reference Range Interpretation Comments T-UPTAKE (test code = 281) 33.1 % THYROX. BIND. CAPAC. (test code 1.0 = 04517) T4 (THYROXINE) (test code = 4.7 UG/DL 2819) CORRECTED T4 (FTI) (test code = 4.7 UG/DL 2820) TSH, THIRD GENERATION (test code 0.201 UIU/ML = 2821) HEMOGLOBIN [id number] 00:00:00 Test Item Value Reference Range Interpretation Comments HEMOGLOBIN A1c (test code = 49980) 6.7 % HEMOGLOBIN [id number] 00:00:00 Test Item Value Reference Range Interpretation Comments HEMOGLOBIN A1c (test code = 06313) 6.7 % HEMOGLOBIN [id number] 00:00:00 Test Item Value Reference Range Interpretation Comments HEMOGLOBIN A1c (test code = 62167) 6.7 % LIPID [id number] 00:00:00 Test Item Value Reference Range Interpretation Comments CHOLESTEROL (test code = 2210) 267 MG/DL TRIGLYCERIDES (test code = 2232) 137 MG/DL HDL CHOLESTEROL (test code = 2220) 48 MG/DL CALC LDL CHOL (test code = 2237) 192 MG/DL RISK RATIO LDL/HDL (test code = 4.00 RATIO 2238) LIPID [id number] 00:00:00 Test Item Value Reference Range Interpretation Comments CHOLESTEROL (test code = 2210) 267 MG/DL TRIGLYCERIDES (test code = 2232) 137 MG/DL HDL CHOLESTEROL (test code = 2220) 48 MG/DL CALC LDL CHOL (test code = 2237) 192 MG/DL RISK RATIO LDL/HDL (test code = 4.00 RATIO 2238) COMPREHENSIVE METABOLIC [id number] 00:00:00 Test Item Value Reference Range Interpretation Comments GLUCOSE (test code = 2217) 155 MG/DL BUN (test code = 2208) 14 MG/DL CREATININE (test code = 2214) 0.52 MG/DL eGFR AMER. (test code 122 ML/MIN/1.73 = 62436) eGFR NON- AMER. (test 105 ML/MIN/1.73 code = 82193) CALC BUN/CREAT (test code = 27 RATIO [...] code = 2219) 27 U/L COMPREHENSIVE METABOLIC [id number] 00:00:00 Test Item Value Reference Range Interpretation Comments GLUCOSE (test code = 2217) 155 MG/DL BUN (test code = 2208) 14 MG/DL CREATININE (test code = 2214) 0.52 MG/DL eGFR AMER. (test code 122 ML/MIN/1.73 = 43328) eGFR NON- AMER. (test 105 ML/MIN/1.73 code = 96267) CALC BUN/CREAT (test code = 27 RATIO [...] THYROX. BIND. CAPAC. (test code 1.0 = 76839) T4 (THYROXINE) (test code = 4.7 UG/DL 2819) CORRECTED T4 (FTI) (test code = 4.7 UG/DL 2820) TSH, THIRD GENERATION (test code 0.201 UIU/ML = 2821) THYROID II PROFILE (T3U, T4, T7, TSH)2019 00:00:00 Test Item Value Reference Range Interpretation Comments T-UPTAKE (test code = 2817) 33.1 % THYROX. BIND. CAPAC. (test code 1.0 = 41542) T4 (THYROXINE) (test code = 4.7 UG/DL 2819) CORRECTED T4 (FTI) (test code = 4.7 UG/DL 2820) TSH, THIRD GENERATION (test code 0.201 UIU/ML = 2821) HEMOGLOBIN [id number] 00:00:00 Test Item Value Reference Range Interpretation Comments HEMOGLOBIN A1c (test code = 33235) 6.7 % HEMOGLOBIN [id number] 00:00:00 Test Item Value Reference Range Interpretation Comments HEMOGLOBIN A1c (test code = 51102) 6.7 % LIPID [id number] 00:00:00 Test Item Value Reference Range Interpretation Comments CHOLESTEROL (test code = 2210) 267 MG/DL TRIGLYCERIDES (test code = 2232) 137 MG/DL HDL CHOLESTEROL (test code = 2220) 48 MG/DL CALC LDL CHOL (test code = 2237) 192 MG/DL RISK RATIO LDL/HDL (test code = 4.00 RATIO 2238) COMPREHENSIVE METABOLIC [id number] 00:00:00 Test Item Value Reference Range Interpretation Comments GLUCOSE (test code = 2217) 155 MG/DL BUN (test code = 2208) 14 MG/DL CREATININE (test code = 2214) 0.52 MG/DL eGFR AMER. (test code 122 ML/MIN/1.73 = 11020) eGFR NON- AMER. (test 105 ML/MIN/1.73 code = 77434) CALC BUN/CREAT (test code = 27 RATIO [...] THYROX. BIND. CAPAC. (test code 1.0 = 96576) T4 (THYROXINE) (test code = 4.7 UG/DL 2819) CORRECTED T4 (FTI) (test code = 4.7 UG/DL 2820) TSH, THIRD GENERATION (test code 0.201 UIU/ML = 2821) HEMOGLOBIN [id number] 00:00:00 Test Item Value Reference Range Interpretation Comments HEMOGLOBIN A1c (test code = 30980) 6.7 % HEMOGLOBIN [id number] 00:00:00 Test Item Value Reference Range Interpretation Comments HEMOGLOBIN A1c (test code = 47556) 6.7 % HEMOGLOBIN [id number] 00:00:00 Test Item Value Reference Range Interpretation Comments HEMOGLOBIN A1c (test code = 23381) 6.7 % LIPID [id number] 00:00:00 Test Item Value Reference Range Interpretation Comments CHOLESTEROL (test code = 2210) 267 MG/DL TRIGLYCERIDES (test code = 2232) 137 MG/DL HDL CHOLESTEROL (test code = 2220) 48 MG/DL CALC LDL CHOL (test code = 2237) 192 MG/DL RISK RATIO LDL/HDL (test code = 4.00 RATIO 2238) LIPID [id number] 00:00:00 Test Item Value Reference Range Interpretation Comments CHOLESTEROL (test code = 2210) 267 MG/DL TRIGLYCERIDES (test code = 2232) 137 MG/DL HDL CHOLESTEROL (test code = 2220) 48 MG/DL CALC LDL CHOL (test code = 2237) 192 MG/DL RISK RATIO LDL/HDL (test code = 4.00 RATIO 2238) COMPREHENSIVE METABOLIC [id number] 00:00:00 Test Item Value Reference Range Interpretation Comments GLUCOSE (test code = 2217) 155 MG/DL BUN (test code = 2208) 14 MG/DL CREATININE (test code = 2214) 0.52 MG/DL eGFR AMER. (test code 122 ML/MIN/1.73 = 80382) eGFR NON- AMER. (test 105 ML/MIN/1.73 code = 45289) CALC BUN/CREAT (test code = 27 RATIO [...] code = 2219) 27 U/L COMPREHENSIVE METABOLIC [id number] 00:00:00 Test Item Value Reference Range Interpretation Comments GLUCOSE (test code = 2217) 155 MG/DL BUN (test code = 2208) 14 MG/DL CREATININE (test code = 2214) 0.52 MG/DL eGFR AMER. (test code 122 ML/MIN/1.73 = 12782) eGFR NON- AMER. (test 105 ML/MIN/1.73 code = 95448) CALC BUN/CREAT (test code = 27 RATIO [...] THYROX. BIND. CAPAC. (test code 1.0 = 34678) T4 (THYROXINE) (test code = 4.7 UG/DL 2819) CORRECTED T4 (FTI) (test code = 4.7 UG/DL 2820) TSH, THIRD GENERATION (test code 0.201 UIU/ML = 2821) THYROID II PROFILE (T3U, T4, T7, TSH)2019 00:00:00 Test Item Value Reference Range Interpretation Comments T-UPTAKE (test code = 2817) 33.1 % THYROX. BIND. CAPAC. (test code 1.0 = 95331) T4 (THYROXINE) (test code = 4.7 UG/DL 2819) CORRECTED T4 (FTI) (test code = 4.7 UG/DL 2820) TSH, THIRD GENERATION (test code 0.201 UIU/ML = 2821) SARS-CoV-2 (COVID-19) by RT-PCR (HIGH RISK)2019-09-18 00:00:00 Test Item Value Reference Range Interpretation Comments SARS-CoV-2 INTERPRETATION (test NEGATIVE code = 32268) SOURCE (test code = 77182) NOT SPECIFIED SARS-CoV-2 (COVID-19) by RT-PCR (HIGH RISK)2019-09-18 00:00:00 Test Item Value Reference Range Interpretation Comments SARS-CoV-2 INTERPRETATION (test NEGATIVE code = 52717) SOURCE (test code = 21865) NOT SPECIFIED SARS-CoV-2 (COVID-19) by RT-PCR (HIGH RISK)2019-09-18 00:00:00 Test Item Value Reference Range Interpretation Comments SARS-CoV-2 INTERPRETATION (test NEGATIVE code = 53066) SOURCE (test code = 93598) NOT SPECIFIED SARS-CoV-2 (COVID-19) by RT-PCR (HIGH RISK)2019-09-18 00:00:00 Test Item Value Reference Range Interpretation Comments SARS-CoV-2 INTERPRETATION (test NEGATIVE code = 70440) SOURCE (test code = 90852) NOT SPECIFIED SARS-CoV-2 (COVID-19) by RT-PCR (HIGH RISK)2019-09-18 00:00:00 Test Item Value Reference Range Interpretation Comments SARS-CoV-2 INTERPRETATION (test NEGATIVE code = 25825) SOURCE (test code = 30328) NOT SPECIFIED SARS-CoV-2 (COVID-19) by RT-PCR (HIGH RISK)2019-09-18 00:00:00 Test Item Value Reference Range Interpretation Comments SARS-CoV-2 INTERPRETATION (test NEGATIVE code = 38195) SOURCE (test code = 87926) NOT SPECIFIED SARS-CoV-2 (COVID-19) by RT-PCR (HIGH RISK)2019-09-18 00:00:00 Test Item Value Reference Range Interpretation Comments SARS-CoV-2 INTERPRETATION (test NEGATIVE code = 02277) SOURCE (test code = 26033) NOT SPECIFIED [id number] 00:00:00 Test Item Value Reference Range Interpretation Comments TSH, THIRD GENERATION (test code 2.490 UIU/ML = 2821) [id number] 00:00:00 Test Item Value Reference Range Interpretation Comments TSH, THIRD GENERATION (test code 2.490 UIU/ML = 2821) [id number] 00:00:00 Test Item Value Reference Range Interpretation Comments TSH, THIRD GENERATION (test code 2.490 UIU/ML = 2821) HEMOGLOBIN [id number] 00:00:00 Test Item Value Reference Range Interpretation Comments HEMOGLOBIN A1c (test code = 56639) 6.4 % HEMOGLOBIN [id number] 00:00:00 Test Item Value Reference Range Interpretation Comments HEMOGLOBIN A1c (test code = 91003) 6.4 % HEMOGLOBIN [id number] 00:00:00 Test Item Value Reference Range Interpretation Comments HEMOGLOBIN A1c (test code = 83654) 6.4 % COMPREHENSIVE METABOLIC [id number] 00:00:00 Test Item Value Reference Range Interpretation Comments GLUCOSE (test code = 2217) 206 MG/DL BUN (test code = 2208) 23 MG/DL CREATININE (test code = 2214) 0.67 MG/DL eGFR AMER. (test code 112 ML/MIN/1.73 = 49923) eGFR NON- AMER. (test 97 ML/MIN/1.73 code = 91609) CALC BUN/CREAT (test code = 34 RATIO [...] code = 2219) 25 U/L COMPREHENSIVE METABOLIC [id number] 00:00:00 Test Item Value Reference Range Interpretation Comments GLUCOSE (test code = 2217) 206 MG/DL BUN (test code = 2208) 23 MG/DL CREATININE (test code = 2214) 0.67 MG/DL eGFR AMER. (test code 112 ML/MIN/1.73 = 65818) eGFR NON- AMER. (test 97 ML/MIN/1.73 code = 25498) CALC BUN/CREAT (test code = 34 RATIO [...] ALT (test code = 2219) 25 U/L [id number] 00:00:00 Test Item Value Reference Range Interpretation Comments TSH, THIRD GENERATION (test code 2.490 UIU/ML = 2821) [id number] 00:00:00 Test Item Value Reference Range Interpretation Comments TSH, THIRD GENERATION (test code 2.490 UIU/ML = 2821) [id number] 00:00:00 Test Item Value Reference Range Interpretation Comments TSH, THIRD GENERATION (test code 2.490 UIU/ML = 2821) HEMOGLOBIN [id number] 00:00:00 Test Item Value Reference Range Interpretation Comments HEMOGLOBIN A1c (test code = 45787) 6.4 % HEMOGLOBIN [id number] 00:00:00 Test Item Value Reference Range Interpretation Comments HEMOGLOBIN A1c (test code = 22296) 6.4 % HEMOGLOBIN [id number] 00:00:00 Test Item Value Reference Range Interpretation Comments HEMOGLOBIN A1c (test code = 15204) 6.4 % COMPREHENSIVE METABOLIC [id number] 00:00:00 Test Item Value Reference Range Interpretation Comments GLUCOSE (test code = 2217) 206 MG/DL BUN (test code = 2208) 23 MG/DL CREATININE (test code = 2214) 0.67 MG/DL eGFR AMER. (test code 112 ML/MIN/1.73 = 09709) eGFR NON- AMER. (test 97 ML/MIN/1.73 code = 38495) CALC BUN/CREAT (test code = 34 RATIO [...] code = 2219) 25 U/L COMPREHENSIVE METABOLIC [id number] 00:00:00 Test Item Value Reference Range Interpretation Comments GLUCOSE (test code = 2217) 206 MG/DL BUN (test code = 2208) 23 MG/DL CREATININE (test code = 2214) 0.67 MG/DL eGFR AMER. (test code 112 ML/MIN/1.73 = 55145) eGFR NON- AMER. (test 97 ML/MIN/1.73 code = 12643) CALC BUN/CREAT (test code = 34 RATIO [...] ALT (test code = 2219) 25 U/L [id number] 00:00:00 Test Item Value Reference Range Interpretation Comments TSH, THIRD GENERATION (test code 2.490 UIU/ML = 2821) [id number] 00:00:00 Test Item Value Reference Range Interpretation Comments TSH, THIRD GENERATION (test code 2.490 UIU/ML = 2821) HEMOGLOBIN [id number] 00:00:00 Test Item Value Reference Range Interpretation Comments HEMOGLOBIN A1c (test code = 32954) 6.4 % HEMOGLOBIN [id number] 00:00:00 Test Item Value Reference Range Interpretation Comments HEMOGLOBIN A1c (test code = 65814) 6.4 % COMPREHENSIVE METABOLIC [id number] 00:00:00 Test Item Value Reference Range Interpretation Comments GLUCOSE (test code = 2217) 206 MG/DL BUN (test code = 2208) 23 MG/DL CREATININE (test code = 2214) 0.67 MG/DL eGFR AMER. (test code 112 ML/MIN/1.73 = 65863) eGFR NON- AMER. (test 97 ML/MIN/1.73 code = 67267) CALC BUN/CREAT (test code = 34 RATIO [...] ALT (test code = 2219) 25 U/L [id number] 00:00:00 Test Item Value Reference Range Interpretation Comments TSH, THIRD GENERATION (test code 2.490 UIU/ML = 2821) [id number] 00:00:00 Test Item Value Reference Range Interpretation Comments TSH, THIRD GENERATION (test code 2.490 UIU/ML = 2821) [id number] 00:00:00 Test Item Value Reference Range Interpretation Comments TSH, THIRD GENERATION (test code 2.490 UIU/ML = 2821) HEMOGLOBIN [id number] 00:00:00 Test Item Value Reference Range Interpretation Comments HEMOGLOBIN A1c (test code = 85964) 6.4 % HEMOGLOBIN [id number] 00:00:00 Test Item Value Reference Range Interpretation Comments HEMOGLOBIN A1c (test code = 20437) 6.4 % HEMOGLOBIN [id number] 00:00:00 Test Item Value Reference Range Interpretation Comments HEMOGLOBIN A1c (test code = 13378) 6.4 % COMPREHENSIVE METABOLIC [id number] 00:00:00 Test Item Value Reference Range Interpretation Comments GLUCOSE (test code = 2217) 206 MG/DL BUN (test code = 2208) 23 MG/DL CREATININE (test code = 2214) 0.67 MG/DL eGFR AMER. (test code 112 ML/MIN/1.73 = 16476) eGFR NON- AMER. (test 97 ML/MIN/1.73 code = 76774) CALC BUN/CREAT (test code = 34 RATIO [...] code = 2219) 25 U/L COMPREHENSIVE METABOLIC [id number] 00:00:00 Test Item Value Reference Range Interpretation Comments GLUCOSE (test code = 2217) 206 MG/DL BUN (test code = 2208) 23 MG/DL CREATININE (test code = 2214) 0.67 MG/DL eGFR AMER. (test code 112 ML/MIN/1.73 = 47360) eGFR NON- AMER. (test 97 ML/MIN/1.73 code = 71891) CALC BUN/CREAT (test code = 34 RATIO [...] = 2219) 25 U/L VAGINAL PATHOGENS DNA [id number] 00:00:00 Test Item Value Reference Range Interpretation Comments MARK SPECIES (test code = 25737) NEGATIVE G. VAGINALIS (test code = 28202) NEGATIVE T. VAGINALIS (test code = 41635) NEGATIVE VAGINAL PATHOGENS DNA [id number] 00:00:00 Test Item Value Reference Range Interpretation Comments MARK SPECIES (test code = 02458) NEGATIVE G. VAGINALIS (test code = 06329) NEGATIVE T. VAGINALIS (test code = 58925) NEGATIVE VAGINAL PATHOGENS DNA [id number] 00:00:00 Test Item Value Reference Range Interpretation Comments MARK SPECIES (test code = 09994) NEGATIVE G. VAGINALIS (test code = 43148) NEGATIVE T. VAGINALIS (test code = 86496) NEGATIVE VAGINAL PATHOGENS DNA [id number] 00:00:00 Test Item Value Reference Range Interpretation Comments MARK SPECIES (test code = 89518) NEGATIVE G. VAGINALIS (test code = 45998) NEGATIVE T. VAGINALIS (test code = 26413) NEGATIVE VAGINAL PATHOGENS DNA [id number] 00:00:00 Test Item Value Reference Range Interpretation Comments MARK SPECIES (test code = 72690) NEGATIVE G. VAGINALIS (test code = 67677) NEGATIVE T. VAGINALIS (test code = 75832) NEGATIVE VAGINAL PATHOGENS DNA [id number] 00:00:00 Test Item Value Reference Range Interpretation Comments MARK SPECIES (test code = 50398) NEGATIVE G. VAGINALIS (test code = 93056) NEGATIVE T. VAGINALIS (test code = 48233) NEGATIVE VAGINAL PATHOGENS DNA [id number] 00:00:00 Test Item Value Reference Range Interpretation Comments MARK SPECIES (test code = 17852) NEGATIVE G. VAGINALIS (test code = 22818) NEGATIVE T. VAGINALIS (test code = 96883) NEGATIVE HEMOGLOBIN A1c [ADDED]2018-12-01 00:00:00 Test Item Value Reference Range Interpretation Comments HEMOGLOBIN A1c (test code = 64464) 6.7 % HEMOGLOBIN A1c [ADDED]2018-12-01 00:00:00 Test Item Value Reference Range Interpretation Comments HEMOGLOBIN A1c (test code = 12185) 6.7 % HEMOGLOBIN A1c [ADDED]2018-12-01 00:00:00 Test Item Value Reference Range Interpretation Comments HEMOGLOBIN A1c (test code = 63954) 6.7 % COMPREHENSIVE METABOLIC PANEL [ADDED]2018-12-01 00:00:00 Test Item Value Reference Range Interpretation Comments GLUCOSE (test code = 2217) 136 MG/DL BUN (test code = 2208) 15 MG/DL CREATININE (test code = 2214) 0.64 MG/DL eGFR AMER. (test code 115 ML/MIN/1.73 = 75709) eGFR NON- AMER. (test 99 ML/MIN/1.73 code = 04594) CALC BUN/CREAT (test code = 23 RATIO [...] eGFR AMER. (test code 115 ML/MIN/1.73 = 05929) eGFR NON- AMER. (test 99 ML/MIN/1.73 code = 26588) CALC BUN/CREAT (test code = 23 RATIO [...] Interpretation Comments HEMOGLOBIN A1c (test code = 41596) 6.7 % HEMOGLOBIN A1c [ADDED]2018-12-01 00:00:00 Test Item Value Reference Range Interpretation Comments HEMOGLOBIN A1c (test code = 81458) 6.7 % HEMOGLOBIN A1c [ADDED]2018-12-01 00:00:00 Test Item Value Reference Range Interpretation Comments HEMOGLOBIN A1c (test code = 82304) 6.7 % COMPREHENSIVE METABOLIC PANEL [ADDED]2018-12-01 00:00:00 Test Item Value Reference Range Interpretation Comments GLUCOSE (test code = 2217) 136 MG/DL BUN (test code = 2208) 15 MG/DL CREATININE (test code = 2214) 0.64 MG/DL eGFR AMER. (test code 115 ML/MIN/1.73 = 31476) eGFR NON- AMER. (test 99 ML/MIN/1.73 code = 69199) CALC BUN/CREAT (test code = 23 RATIO [...] eGFR AMER. (test code 115 ML/MIN/1.73 = 09443) eGFR NON- AMER. (test 99 ML/MIN/1.73 code = 49393) CALC BUN/CREAT (test code = 23 RATIO [...] Interpretation Comments HEMOGLOBIN A1c (test code = 28846) 6.7 % HEMOGLOBIN A1c [ADDED]2018-12-01 00:00:00 Test Item Value Reference Range Interpretation Comments HEMOGLOBIN A1c (test code = 08649) 6.7 % COMPREHENSIVE METABOLIC PANEL [ADDED]2018-12-01 00:00:00 Test Item Value Reference Range Interpretation Comments GLUCOSE (test code = 2217) 136 MG/DL BUN (test code = 2208) 15 MG/DL CREATININE (test code = 2214) 0.64 MG/DL eGFR AMER. (test code 115 ML/MIN/1.73 = 86298) eGFR NON- AMER. (test 99 ML/MIN/1.73 code = 72005) CALC BUN/CREAT (test code = 23 RATIO [...] Interpretation Comments HEMOGLOBIN A1c (test code = 04781) 6.7 % HEMOGLOBIN A1c [ADDED]2018-12-01 00:00:00 Test Item Value Reference Range Interpretation Comments HEMOGLOBIN A1c (test code = 20975) 6.7 % HEMOGLOBIN A1c [ADDED]2018-12-01 00:00:00 Test Item Value Reference Range Interpretation Comments HEMOGLOBIN A1c (test code = 45356) 6.7 % COMPREHENSIVE METABOLIC PANEL [ADDED]2018-12-01 00:00:00 Test Item Value Reference Range Interpretation Comments GLUCOSE (test code = 2217) 136 MG/DL BUN (test code = 2208) 15 MG/DL CREATININE (test code = 2214) 0.64 MG/DL eGFR AMER. (test code 115 ML/MIN/1.73 = 43430) eGFR NON- AMER. (test 99 ML/MIN/1.73 code = 97423) CALC BUN/CREAT (test code = 23 RATIO [...] eGFR AMER. (test code 115 ML/MIN/1.73 = 74321) eGFR NON- AMER. (test 99 ML/MIN/1.73 code = 32637) CALC BUN/CREAT (test code = 23 RATIO [...] code 1.280 UIU/ML = 2821) CBC W/AUTO [id number] 00:00:00 Test Item Value Reference Range Interpretation [...] code = 1015) 346 K/UL CBC W/AUTO [id number] 00:00:00 Test Item Value Reference Range Interpretation [...] code = 1015) 346 K/UL CBC W/AUTO [id number] 00:00:00 Test Item Value Reference Range Interpretation [...] (test code = 1015) 346 K/UL HEMOGLOBIN [id number] 00:00:00 Test Item Value Reference Range Interpretation Comments HEMOGLOBIN A1c (test code = 58408) 5.9 % HEMOGLOBIN [id number] 00:00:00 Test Item Value Reference Range Interpretation Comments HEMOGLOBIN A1c (test code = 81953) 5.9 % HEMOGLOBIN [id number] 00:00:00 Test Item Value Reference Range Interpretation Comments HEMOGLOBIN A1c (test code = 53406) 5.9 % LIPID [id number] 00:00:00 Test Item Value Reference Range Interpretation Comments CHOLESTEROL (test code = 2210) 318 MG/DL TRIGLYCERIDES (test code = 2232) 263 MG/DL HDL CHOLESTEROL (test code = 2220) 51 MG/DL CALC LDL CHOL (test code = 2237) 214 MG/DL RISK RATIO LDL/HDL (test code = 4.20 RATIO 2238) LIPID [id number] 00:00:00 Test Item Value Reference Range Interpretation Comments CHOLESTEROL (test code = 2210) 318 MG/DL TRIGLYCERIDES (test code = 2232) 263 MG/DL HDL CHOLESTEROL (test code = 2220) 51 MG/DL CALC LDL CHOL (test code = 2237) 214 MG/DL RISK RATIO LDL/HDL (test code = 4.20 RATIO 2238) COMPREHENSIVE METABOLIC [id number] 00:00:00 Test Item Value Reference Range Interpretation Comments GLUCOSE (test code = 2217) 113 MG/DL BUN (test code = 2208) 18 MG/DL CREATININE (test code = 2214) 0.70 MG/DL eGFR AMER. (test code 111 ML/MIN/1.73 = 94063) eGFR NON- AMER. (test 96 ML/MIN/1.73 code = 44808) CALC BUN/CREAT (test code = 26 RATIO [...] code = 2219) 31 U/L COMPREHENSIVE METABOLIC [id number] 00:00:00 Test Item Value Reference Range Interpretation Comments GLUCOSE (test code = 2217) 113 MG/DL BUN (test code = 2208) 18 MG/DL CREATININE (test code = 2214) 0.70 MG/DL eGFR AMER. (test code 111 ML/MIN/1.73 = 82019) eGFR NON- AMER. (test 96 ML/MIN/1.73 code = 66761) CALC BUN/CREAT (test code = 26 RATIO [...] ALT (test code = 2219) 31 U/L [id number] 00:00:00 Test Item Value Reference Range Interpretation Comments TSH, THIRD GENERATION (test code 2.520 UIU/ML = 2821) [id number] 00:00:00 Test Item Value Reference Range Interpretation Comments TSH, THIRD GENERATION (test code 2.520 UIU/ML = 2821) [id number] 00:00:00 Test Item Value Reference Range Interpretation Comments TSH, THIRD GENERATION (test code 2.520 UIU/ML = 2821) CBC W/AUTO [id number] 00:00:00 Test Item Value Reference Range Interpretation [...] code = 1015) 346 K/UL CBC W/AUTO [id number] 00:00:00 Test Item Value Reference Range Interpretation [...] code = 1015) 346 K/UL CBC W/AUTO [id number] 00:00:00 Test Item Value Reference Range Interpretation [...] (test code = 1015) 346 K/UL HEMOGLOBIN [id number] 00:00:00 Test Item Value Reference Range Interpretation Comments HEMOGLOBIN A1c (test code = 00575) 5.9 % HEMOGLOBIN [id number] 00:00:00 Test Item Value Reference Range Interpretation Comments HEMOGLOBIN A1c (test code = 40555) 5.9 % HEMOGLOBIN [id number] 00:00:00 Test Item Value Reference Range Interpretation Comments HEMOGLOBIN A1c (test code = 77310) 5.9 % LIPID [id number] 00:00:00 Test Item Value Reference Range Interpretation Comments CHOLESTEROL (test code = 2210) 318 MG/DL TRIGLYCERIDES (test code = 2232) 263 MG/DL HDL CHOLESTEROL (test code = 2220) 51 MG/DL CALC LDL CHOL (test code = 2237) 214 MG/DL RISK RATIO LDL/HDL (test code = 4.20 RATIO 2238) LIPID [id number] 00:00:00 Test Item Value Reference Range Interpretation Comments CHOLESTEROL (test code = 2210) 318 MG/DL TRIGLYCERIDES (test code = 2232) 263 MG/DL HDL CHOLESTEROL (test code = 2220) 51 MG/DL CALC LDL CHOL (test code = 2237) 214 MG/DL RISK RATIO LDL/HDL (test code = 4.20 RATIO 2238) COMPREHENSIVE METABOLIC [id number] 00:00:00 Test Item Value Reference Range Interpretation Comments GLUCOSE (test code = 2217) 113 MG/DL BUN (test code = 2208) 18 MG/DL CREATININE (test code = 2214) 0.70 MG/DL eGFR AMER. (test code 111 ML/MIN/1.73 = 01241) eGFR NON- AMER. (test 96 ML/MIN/1.73 code = 92290) CALC BUN/CREAT (test code = 26 RATIO [...] code = 2219) 31 U/L COMPREHENSIVE METABOLIC [id number] 00:00:00 Test Item Value Reference Range Interpretation Comments GLUCOSE (test code = 2217) 113 MG/DL BUN (test code = 2208) 18 MG/DL CREATININE (test code = 2214) 0.70 MG/DL eGFR AMER. (test code 111 ML/MIN/1.73 = 46339) eGFR NON- AMER. (test 96 ML/MIN/1.73 code = 08914) CALC BUN/CREAT (test code = 26 RATIO [...] ALT (test code = 2219) 31 U/L [id number] 00:00:00 Test Item Value Reference Range Interpretation Comments TSH, THIRD GENERATION (test code 2.520 UIU/ML = 2821) [id number] 00:00:00 Test Item Value Reference Range Interpretation Comments TSH, THIRD GENERATION (test code 2.520 UIU/ML = 2821) [id number] 00:00:00 Test Item Value Reference Range Interpretation Comments TSH, THIRD GENERATION (test code 2.520 UIU/ML = 2821) CBC W/AUTO [id number] 00:00:00 Test Item Value Reference Range Interpretation [...] code = 1015) 346 K/UL CBC W/AUTO [id number] 00:00:00 Test Item Value Reference Range Interpretation [...] (test code = 1015) 346 K/UL HEMOGLOBIN [id number] 00:00:00 Test Item Value Reference Range Interpretation Comments HEMOGLOBIN A1c (test code = 33763) 5.9 % HEMOGLOBIN [id number] 00:00:00 Test Item Value Reference Range Interpretation Comments HEMOGLOBIN A1c (test code = 02247) 5.9 % LIPID [id number] 00:00:00 Test Item Value Reference Range Interpretation Comments CHOLESTEROL (test code = 2210) 318 MG/DL TRIGLYCERIDES (test code = 2232) 263 MG/DL HDL CHOLESTEROL (test code = 2220) 51 MG/DL CALC LDL CHOL (test code = 2237) 214 MG/DL RISK RATIO LDL/HDL (test code = 4.20 RATIO 2238) COMPREHENSIVE METABOLIC [id number] 00:00:00 Test Item Value Reference Range Interpretation Comments GLUCOSE (test code = 2217) 113 MG/DL BUN (test code = 2208) 18 MG/DL CREATININE (test code = 2214) 0.70 MG/DL eGFR AMER. (test code 111 ML/MIN/1.73 = 09354) eGFR NON- AMER. (test 96 ML/MIN/1.73 code = 19680) CALC BUN/CREAT (test code = 26 RATIO [...] ALT (test code = 2219) 31 U/L [id number] 00:00:00 Test Item Value Reference Range Interpretation Comments TSH, THIRD GENERATION (test code 2.520 UIU/ML = 2821) [id number] 00:00:00 Test Item Value Reference Range Interpretation Comments TSH, THIRD GENERATION (test code 2.520 UIU/ML = 2821) CBC W/AUTO [id number] 00:00:00 Test Item Value Reference Range Interpretation [...] code = 1015) 346 K/UL CBC W/AUTO [id number] 00:00:00 Test Item Value Reference Range Interpretation [...] code = 1015) 346 K/UL CBC W/AUTO [id number] 00:00:00 Test Item Value Reference Range Interpretation [...] (test code = 1015) 346 K/UL HEMOGLOBIN [id number] 00:00:00 Test Item Value Reference Range Interpretation Comments HEMOGLOBIN A1c (test code = 19129) 5.9 % HEMOGLOBIN [id number] 00:00:00 Test Item Value Reference Range Interpretation Comments HEMOGLOBIN A1c (test code = 97909) 5.9 % HEMOGLOBIN [id number] 00:00:00 Test Item Value Reference Range Interpretation Comments HEMOGLOBIN A1c (test code = 77362) 5.9 % LIPID [id number] 00:00:00 Test Item Value Reference Range Interpretation Comments CHOLESTEROL (test code = 2210) 318 MG/DL TRIGLYCERIDES (test code = 2232) 263 MG/DL HDL CHOLESTEROL (test code = 2220) 51 MG/DL CALC LDL CHOL (test code = 2237) 214 MG/DL RISK RATIO LDL/HDL (test code = 4.20 RATIO 2238) LIPID [id number] 00:00:00 Test Item Value Reference Range Interpretation Comments CHOLESTEROL (test code = 2210) 318 MG/DL TRIGLYCERIDES (test code = 2232) 263 MG/DL HDL CHOLESTEROL (test code = 2220) 51 MG/DL CALC LDL CHOL (test code = 2237) 214 MG/DL RISK RATIO LDL/HDL (test code = 4.20 RATIO 2238) COMPREHENSIVE METABOLIC [id number] 00:00:00 Test Item Value Reference Range Interpretation Comments GLUCOSE (test code = 2217) 113 MG/DL BUN (test code = 2208) 18 MG/DL CREATININE (test code = 2214) 0.70 MG/DL eGFR AMER. (test code 111 ML/MIN/1.73 = 18825) eGFR NON- AMER. (test 96 ML/MIN/1.73 code = 20922) CALC BUN/CREAT (test code = 26 RATIO [...] code = 2219) 31 U/L COMPREHENSIVE METABOLIC [id number] 00:00:00 Test Item Value Reference Range Interpretation Comments GLUCOSE (test code = 2217) 113 MG/DL BUN (test code = 2208) 18 MG/DL CREATININE (test code = 2214) 0.70 MG/DL eGFR AMER. (test code 111 ML/MIN/1.73 = 45380) eGFR NON- AMER. (test 96 ML/MIN/1.73 code = 39225) CALC BUN/CREAT (test code = 26 RATIO [...] ALT (test code = 2219) 31 U/L [id number] 00:00:00 Test Item Value Reference Range Interpretation Comments TSH, THIRD GENERATION (test code 2.520 UIU/ML = 2821) [id number] 00:00:00 Test Item Value Reference Range Interpretation Comments TSH, THIRD GENERATION (test code 2.520 UIU/ML = 2821) [id number] 00:00:00 Test Item Value Reference Range Interpretation Comments TSH, THIRD GENERATION (test code 2.520 UIU/ML = 2821) CULTURE, [id number] 00:00:00 Test Item Value Reference Range Interpretation Comments CULTURE, URINE (test SPECIMEN NUMBER: code = 80451) [id number] CULTURE, [id number] 00:00:00 Test Item Value Reference Range Interpretation Comments CULTURE, URINE (test SPECIMEN NUMBER: code = 07272) [id number] CULTURE, [id number] 00:00:00 Test Item Value Reference Range Interpretation Comments CULTURE, URINE (test SPECIMEN NUMBER: code = 54757) [id number] CULTURE, [id number] 00:00:00 Test Item Value Reference Range Interpretation Comments CULTURE, URINE (test SPECIMEN NUMBER: code = 51790) [id number] CULTURE, [id number] 00:00:00 Test Item Value Reference Range Interpretation Comments CULTURE, URINE (test SPECIMEN NUMBER: code = 31674) [id number] CULTURE, [id number] 00:00:00 Test Item Value Reference Range Interpretation Comments CULTURE, URINE (test SPECIMEN NUMBER: code = 22537) [id number] CULTURE, [id number] 00:00:00 Test Item Value Reference Range Interpretation Comments CULTURE, URINE (test SPECIMEN NUMBER: code = 34208) [id number] CULTURE, [id number] 00:00:00 Test Item Value Reference Range Interpretation Comments CULTURE, URINE (test SPECIMEN NUMBER: code = 63497) [id number] CULTURE, [id number] 00:00:00 Test Item Value Reference Range Interpretation Comments CULTURE, URINE (test SPECIMEN NUMBER: code = 71516) [id number] CULTURE, [id number] 00:00:00 Test Item Value Reference Range Interpretation Comments CULTURE, URINE (test SPECIMEN NUMBER: code = 23886) [id number] CULTURE, [id number] 00:00:00 Test Item Value Reference Range Interpretation Comments CULTURE, URINE (test SPECIMEN NUMBER: code = 35742) [id number] CULTURE, [id number] 00:00:00 Test Item Value Reference Range Interpretation Comments CULTURE, URINE (test SPECIMEN NUMBER: code = 16174) [id number] CULTURE, [id number] 00:00:00 Test Item Value Reference Range Interpretation Comments CULTURE, URINE (test SPECIMEN NUMBER: code = 29741) [id number] CULTURE, [id number] 00:00:00 Test Item Value Reference Range Interpretation Comments CULTURE, URINE (test SPECIMEN NUMBER: code = 85362) [id number] BASIC METABOLIC [id number] 00:00:00 Test Item Value Reference Range Interpretation Comments GLUCOSE (test code = 2217) 135 MG/DL BUN (test code = 2208) 25 MG/DL CREATININE (test code = 2214) 0.76 MG/DL eGFR AMER. (test code 101 ML/MIN/1.73 = 95032) eGFR NON- AMER. (test 87 ML/MIN/1.73 code = 08875) SODIUM (test code = 2231) 139 MEQ/L POTASSIUM (test code = 2228) 4.7 MEQ/L CHLORIDE (test code = 2215) 99 MEQ/L CARBON DIOXIDE (test code = 26 MEQ/L 2206) CALCIUM (test code = 2209) 9.4 MG/DL BASIC METABOLIC [id number] 00:00:00 Test Item Value Reference Range Interpretation Comments GLUCOSE (test code = 2217) 135 MG/DL BUN (test code = 2208) 25 MG/DL CREATININE (test code = 2214) 0.76 MG/DL eGFR AMER. (test code 101 ML/MIN/1.73 = 43048) eGFR NON- AMER. (test 87 ML/MIN/1.73 code = 05888) SODIUM (test code = 2231) 139 MEQ/L POTASSIUM (test code = 2228) 4.7 MEQ/L CHLORIDE (test code = 2215) 99 MEQ/L CARBON DIOXIDE (test code = 26 MEQ/L 2206) CALCIUM (test code = 2209) 9.4 MG/DL LIPID [id number] 00:00:00 Test Item Value Reference Range Interpretation Comments CHOLESTEROL (test code = 2210) 262 MG/DL TRIGLYCERIDES (test code = 2232) 300 MG/DL HDL CHOLESTEROL (test code = 2220) 36 MG/DL CALC LDL CHOL (test code = 2237) 166 MG/DL RISK RATIO LDL/HDL (test code = 4.61 RATIO 2238) LIPID [id number] 00:00:00 Test Item Value Reference Range Interpretation Comments CHOLESTEROL (test code = 2210) 262 MG/DL TRIGLYCERIDES (test code = 2232) 300 MG/DL HDL CHOLESTEROL (test code = 2220) 36 MG/DL CALC LDL CHOL (test code = 2237) 166 MG/DL RISK RATIO LDL/HDL (test code = 4.61 RATIO 2238) HEMOGLOBIN [id number] 00:00:00 Test Item Value Reference Range Interpretation Comments HEMOGLOBIN A1c (test code = 35704) 6.2 % HEMOGLOBIN [id number] 00:00:00 Test Item Value Reference Range Interpretation Comments HEMOGLOBIN A1c (test code = 70607) 6.2 % HEMOGLOBIN [id number] 00:00:00 Test Item Value Reference Range Interpretation Comments HEMOGLOBIN A1c (test code = 46322) 6.2 % [id number] 00:00:00 Test Item Value Reference Range Interpretation Comments TSH, THIRD GENERATION (test code 0.988 UIU/ML = 2821) [id number] 00:00:00 Test Item Value Reference Range Interpretation Comments TSH, THIRD GENERATION (test code 0.988 UIU/ML = 2821) [id number] 00:00:00 Test Item Value Reference Range Interpretation Comments TSH, THIRD GENERATION (test code 0.988 UIU/ML = 2821) BASIC METABOLIC [id number] 00:00:00 Test Item Value Reference Range Interpretation Comments GLUCOSE (test code = 2217) 135 MG/DL BUN (test code = 2208) 25 MG/DL CREATININE (test code = 2214) 0.76 MG/DL eGFR AMER. (test code 101 ML/MIN/1.73 = 35105) eGFR NON- AMER. (test 87 ML/MIN/1.73 code = 12962) SODIUM (test code = 2231) 139 MEQ/L POTASSIUM (test code = 2228) 4.7 MEQ/L CHLORIDE (test code = 2215) 99 MEQ/L CARBON DIOXIDE (test code = 26 MEQ/L 2206) CALCIUM (test code = 2209) 9.4 MG/DL BASIC METABOLIC [id number] 00:00:00 Test Item Value Reference Range Interpretation Comments GLUCOSE (test code = 2217) 135 MG/DL BUN (test code = 2208) 25 MG/DL CREATININE (test code = 2214) 0.76 MG/DL eGFR AMER. (test code 101 ML/MIN/1.73 = 57467) eGFR NON- AMER. (test 87 ML/MIN/1.73 code = 77884) SODIUM (test code = 2231) 139 MEQ/L POTASSIUM (test code = 2228) 4.7 MEQ/L CHLORIDE (test code = 2215) 99 MEQ/L CARBON DIOXIDE (test code = 26 MEQ/L 2206) CALCIUM (test code = 2209) 9.4 MG/DL LIPID [id number] 00:00:00 Test Item Value Reference Range Interpretation Comments CHOLESTEROL (test code = 2210) 262 MG/DL TRIGLYCERIDES (test code = 2232) 300 MG/DL HDL CHOLESTEROL (test code = 2220) 36 MG/DL CALC LDL CHOL (test code = 2237) 166 MG/DL RISK RATIO LDL/HDL (test code = 4.61 RATIO 2238) LIPID [id number] 00:00:00 Test Item Value Reference Range Interpretation Comments CHOLESTEROL (test code = 2210) 262 MG/DL TRIGLYCERIDES (test code = 2232) 300 MG/DL HDL CHOLESTEROL (test code = 2220) 36 MG/DL CALC LDL CHOL (test code = 2237) 166 MG/DL RISK RATIO LDL/HDL (test code = 4.61 RATIO 2238) HEMOGLOBIN [id number] 00:00:00 Test Item Value Reference Range Interpretation Comments HEMOGLOBIN A1c (test code = 82001) 6.2 % HEMOGLOBIN [id number] 00:00:00 Test Item Value Reference Range Interpretation Comments HEMOGLOBIN A1c (test code = 52772) 6.2 % HEMOGLOBIN [id number] 00:00:00 Test Item Value Reference Range Interpretation Comments HEMOGLOBIN A1c (test code = 19983) 6.2 % [id number] 00:00:00 Test Item Value Reference Range Interpretation Comments TSH, THIRD GENERATION (test code 0.988 UIU/ML = 2821) [id number] 00:00:00 Test Item Value Reference Range Interpretation Comments TSH, THIRD GENERATION (test code 0.988 UIU/ML = 2821) [id number] 00:00:00 Test Item Value Reference Range Interpretation Comments TSH, THIRD GENERATION (test code 0.988 UIU/ML = 2821) BASIC METABOLIC [id number] 00:00:00 Test Item Value Reference Range Interpretation Comments GLUCOSE (test code = 2217) 135 MG/DL BUN (test code = 2208) 25 MG/DL CREATININE (test code = 2214) 0.76 MG/DL eGFR AMER. (test code 101 ML/MIN/1.73 = 85448) eGFR NON- AMER. (test 87 ML/MIN/1.73 code = 65398) SODIUM (test code = 2231) 139 MEQ/L POTASSIUM (test code = 2228) 4.7 MEQ/L CHLORIDE (test code = 2215) 99 MEQ/L CARBON DIOXIDE (test code = 26 MEQ/L 2205) CALCIUM (test code = 2209) 9.4 MG/DL LIPID [id number] 00:00:00 Test Item Value Reference Range Interpretation Comments CHOLESTEROL (test code = 2210) 262 MG/DL TRIGLYCERIDES (test code = 2232) 300 MG/DL HDL CHOLESTEROL (test code = 2220) 36 MG/DL CALC LDL CHOL (test code = 2237) 166 MG/DL RISK RATIO LDL/HDL (test code = 4.61 RATIO 2238) HEMOGLOBIN [id number] 00:00:00 Test Item Value Reference Range Interpretation Comments HEMOGLOBIN A1c (test code = 65851) 6.2 % HEMOGLOBIN [id number] 00:00:00 Test Item Value Reference Range Interpretation Comments HEMOGLOBIN A1c (test code = 73920) 6.2 % [id number] 00:00:00 Test Item Value Reference Range Interpretation Comments TSH, THIRD GENERATION (test code 0.988 UIU/ML = 2821) [id number] 00:00:00 Test Item Value Reference Range Interpretation Comments TSH, THIRD GENERATION (test code 0.988 UIU/ML = 2821) BASIC METABOLIC [id number] 00:00:00 Test Item Value Reference Range Interpretation Comments GLUCOSE (test code = 2217) 135 MG/DL BUN (test code = 2208) 25 MG/DL CREATININE (test code = 2214) 0.76 MG/DL eGFR AMER. (test code 101 ML/MIN/1.73 = 34360) eGFR NON- AMER. (test 87 ML/MIN/1.73 code = 00944) SODIUM (test code = 2231) 139 MEQ/L POTASSIUM (test code = 2228) 4.7 MEQ/L CHLORIDE (test code = 2215) 99 MEQ/L CARBON DIOXIDE (test code = 26 MEQ/L 2206) CALCIUM (test code = 2209) 9.4 MG/DL BASIC METABOLIC [id number] 00:00:00 Test Item Value Reference Range Interpretation Comments GLUCOSE (test code = 2217) 135 MG/DL BUN (test code = 2208) 25 MG/DL CREATININE (test code = 2214) 0.76 MG/DL eGFR AMER. (test code 101 ML/MIN/1.73 = 51363) eGFR NON- AMER. (test 87 ML/MIN/1.73 code = 31139) SODIUM (test code = 2231) 139 MEQ/L POTASSIUM (test code = 2228) 4.7 MEQ/L CHLORIDE (test code = 2215) 99 MEQ/L CARBON DIOXIDE (test code = 26 MEQ/L 2206) CALCIUM (test code = 2209) 9.4 MG/DL LIPID [id number] 00:00:00 Test Item Value Reference Range Interpretation Comments CHOLESTEROL (test code = 2210) 262 MG/DL TRIGLYCERIDES (test code = 2232) 300 MG/DL HDL CHOLESTEROL (test code = 2220) 36 MG/DL CALC LDL CHOL (test code = 2237) 166 MG/DL RISK RATIO LDL/HDL (test code = 4.61 RATIO 2238) LIPID [id number] 00:00:00 Test Item Value Reference Range Interpretation Comments CHOLESTEROL (test code = 2210) 262 MG/DL TRIGLYCERIDES (test code = 2232) 300 MG/DL HDL CHOLESTEROL (test code = 2220) 36 MG/DL CALC LDL CHOL (test code = 2237) 166 MG/DL RISK RATIO LDL/HDL (test code = 4.61 RATIO 2238) HEMOGLOBIN [id number] 00:00:00 Test Item Value Reference Range Interpretation Comments HEMOGLOBIN A1c (test code = 95760) 6.2 % HEMOGLOBIN [id number] 00:00:00 Test Item Value Reference Range Interpretation Comments HEMOGLOBIN A1c (test code = 30763) 6.2 % HEMOGLOBIN [id number] 00:00:00 Test Item Value Reference Range Interpretation Comments HEMOGLOBIN A1c (test code = 99895) 6.2 % [id number] 00:00:00 Test Item Value Reference Range Interpretation Comments TSH, THIRD GENERATION (test code 0.988 UIU/ML = 2821) [id number] 00:00:00 Test Item Value Reference Range Interpretation Comments TSH, THIRD GENERATION (test code 0.988 UIU/ML = 2821) [id number] 00:00:00 Test Item Value Reference Range Interpretation Comments TSH, THIRD GENERATION (test code 0.988 UIU/ML = 2821) COMPREHENSIVE METABOLIC [id number] 00:00:00 Test Item Value Reference Range Interpretation Comments GLUCOSE (test code = 2217) 109 MG/DL BUN (test code = 2208) 25 MG/DL CREATININE (test code = 2214) 0.78 MG/DL eGFR AMER. (test code 98 ML/MIN/1.73 = 25895) eGFR NON- AMER. (test 84 ML/MIN/1.73 code = 72148) CALC BUN/CREAT (test code = 32 RATIO [...] code = 2219) 25 U/L COMPREHENSIVE METABOLIC [id number] 00:00:00 Test Item Value Reference Range Interpretation Comments GLUCOSE (test code = 2217) 109 MG/DL BUN (test code = 2208) 25 MG/DL CREATININE (test code = 2214) 0.78 MG/DL eGFR AMER. (test code 98 ML/MIN/1.73 = 77583) eGFR NON- AMER. (test 84 ML/MIN/1.73 code = 06122) CALC BUN/CREAT (test code = 32 RATIO [...] (test code = 2219) 25 U/L LIPID [id number] 00:00:00 Test Item Value Reference Range Interpretation Comments CHOLESTEROL (test code = 2210) 295 MG/DL TRIGLYCERIDES (test code = 2232) 218 MG/DL HDL CHOLESTEROL (test code = 2220) 46 MG/DL CALC LDL CHOL (test code = 2237) 205 MG/DL RISK RATIO LDL/HDL (test code = 4.47 RATIO 2238) LIPID [id number] 00:00:00 Test Item Value Reference Range Interpretation Comments CHOLESTEROL (test code = 2210) 295 MG/DL TRIGLYCERIDES (test code = 2232) 218 MG/DL HDL CHOLESTEROL (test code = 2220) 46 MG/DL CALC LDL CHOL (test code = 2237) 205 MG/DL RISK RATIO LDL/HDL (test code = 4.47 RATIO 2238) HEMOGLOBIN [id number] 00:00:00 Test Item Value Reference Range Interpretation Comments HEMOGLOBIN A1c (test code = 93351) 7.0 % HEMOGLOBIN [id number] 00:00:00 Test Item Value Reference Range Interpretation Comments HEMOGLOBIN A1c (test code = 03445) 7.0 % HEMOGLOBIN [id number] 00:00:00 Test Item Value Reference Range Interpretation Comments HEMOGLOBIN A1c (test code = 88698) 7.0 % [id number] 00:00:00 Test Item Value Reference Range Interpretation Comments TSH, THIRD GENERATION (test code 0.565 UIU/ML = 2821) [id number] 00:00:00 Test Item Value Reference Range Interpretation Comments TSH, THIRD GENERATION (test code 0.565 UIU/ML = 2821) [id number] 00:00:00 Test Item Value Reference Range Interpretation Comments TSH, THIRD GENERATION (test code 0.565 UIU/ML = 2821) COMPREHENSIVE METABOLIC [id number] 00:00:00 Test Item Value Reference Range Interpretation Comments GLUCOSE (test code = 2217) 109 MG/DL BUN (test code = 2208) 25 MG/DL CREATININE (test code = 2214) 0.78 MG/DL eGFR AMER. (test code 98 ML/MIN/1.73 = 31148) eGFR NON- AMER. (test 84 ML/MIN/1.73 code = 40825) CALC BUN/CREAT (test code = 32 RATIO [...] code = 2219) 25 U/L COMPREHENSIVE METABOLIC [id number] 00:00:00 Test Item Value Reference Range Interpretation Comments GLUCOSE (test code = 2217) 109 MG/DL BUN (test code = 2208) 25 MG/DL CREATININE (test code = 2214) 0.78 MG/DL eGFR AMER. (test code 98 ML/MIN/1.73 = 37032) eGFR NON- AMER. (test 84 ML/MIN/1.73 code = 19960) CALC BUN/CREAT (test code = 32 RATIO [...] (test code = 2219) 25 U/L LIPID [id number] 00:00:00 Test Item Value Reference Range Interpretation Comments CHOLESTEROL (test code = 2210) 295 MG/DL TRIGLYCERIDES (test code = 2232) 218 MG/DL HDL CHOLESTEROL (test code = 2220) 46 MG/DL CALC LDL CHOL (test code = 2237) 205 MG/DL RISK RATIO LDL/HDL (test code = 4.47 RATIO 2238) LIPID [id number] 00:00:00 Test Item Value Reference Range Interpretation Comments CHOLESTEROL (test code = 2210) 295 MG/DL TRIGLYCERIDES (test code = 2232) 218 MG/DL HDL CHOLESTEROL (test code = 2220) 46 MG/DL CALC LDL CHOL (test code = 2237) 205 MG/DL RISK RATIO LDL/HDL (test code = 4.47 RATIO 2238) HEMOGLOBIN [id number] 00:00:00 Test Item Value Reference Range Interpretation Comments HEMOGLOBIN A1c (test code = 70206) 7.0 % HEMOGLOBIN [id number] 00:00:00 Test Item Value Reference Range Interpretation Comments HEMOGLOBIN A1c (test code = 80323) 7.0 % HEMOGLOBIN [id number] 00:00:00 Test Item Value Reference Range Interpretation Comments HEMOGLOBIN A1c (test code = 73306) 7.0 % [id number] 00:00:00 Test Item Value Reference Range Interpretation Comments TSH, THIRD GENERATION (test code 0.565 UIU/ML = 2821) [id number] 00:00:00 Test Item Value Reference Range Interpretation Comments TSH, THIRD GENERATION (test code 0.565 UIU/ML = 2821) [id number] 00:00:00 Test Item Value Reference Range Interpretation Comments TSH, THIRD GENERATION (test code 0.565 UIU/ML = 2821) COMPREHENSIVE METABOLIC [id number] 00:00:00 Test Item Value Reference Range Interpretation Comments GLUCOSE (test code = 2217) 109 MG/DL BUN (test code = 2208) 25 MG/DL CREATININE (test code = 2214) 0.78 MG/DL eGFR AMER. (test code 98 ML/MIN/1.73 = 41690) eGFR NON- AMER. (test 84 ML/MIN/1.73 code = 02704) CALC BUN/CREAT (test code = 32 RATIO [...] (test code = 2219) 25 U/L LIPID [id number] 00:00:00 Test Item Value Reference Range Interpretation Comments CHOLESTEROL (test code = 2210) 295 MG/DL TRIGLYCERIDES (test code = 2232) 218 MG/DL HDL CHOLESTEROL (test code = 2220) 46 MG/DL CALC LDL CHOL (test code = 2237) 205 MG/DL RISK RATIO LDL/HDL (test code = 4.47 RATIO 2238) HEMOGLOBIN [id number] 00:00:00 Test Item Value Reference Range Interpretation Comments HEMOGLOBIN A1c (test code = 38303) 7.0 % HEMOGLOBIN [id number] 00:00:00 Test Item Value Reference Range Interpretation Comments HEMOGLOBIN A1c (test code = 87326) 7.0 % [id number] 00:00:00 Test Item Value Reference Range Interpretation Comments TSH, THIRD GENERATION (test code 0.565 UIU/ML = 2821) [id number] 00:00:00 Test Item Value Reference Range Interpretation Comments TSH, THIRD GENERATION (test code 0.565 UIU/ML = 2821) COMPREHENSIVE METABOLIC [id number] 00:00:00 Test Item Value Reference Range Interpretation Comments GLUCOSE (test code = 2217) 109 MG/DL BUN (test code = 2208) 25 MG/DL CREATININE (test code = 2214) 0.78 MG/DL eGFR AMER. (test code 98 ML/MIN/1.73 = 72955) eGFR NON- AMER. (test 84 ML/MIN/1.73 code = 81699) CALC BUN/CREAT (test code = 32 RATIO [...] code = 2219) 25 U/L COMPREHENSIVE METABOLIC [id number] 00:00:00 Test Item Value Reference Range Interpretation Comments GLUCOSE (test code = 2217) 109 MG/DL BUN (test code = 2208) 25 MG/DL CREATININE (test code = 2214) 0.78 MG/DL eGFR AMER. (test code 98 ML/MIN/1.73 = 14698) eGFR NON- AMER. (test 84 ML/MIN/1.73 code = 67490) CALC BUN/CREAT (test code = 32 RATIO [...] (test code = 2219) 25 U/L LIPID [id number] 00:00:00 Test Item Value Reference Range Interpretation Comments CHOLESTEROL (test code = 2210) 295 MG/DL TRIGLYCERIDES (test code = 2232) 218 MG/DL HDL CHOLESTEROL (test code = 2220) 46 MG/DL CALC LDL CHOL (test code = 2237) 205 MG/DL RISK RATIO LDL/HDL (test code = 4.47 RATIO 2238) LIPID [id number] 00:00:00 Test Item Value Reference Range Interpretation Comments CHOLESTEROL (test code = 2210) 295 MG/DL TRIGLYCERIDES (test code = 2232) 218 MG/DL HDL CHOLESTEROL (test code = 2220) 46 MG/DL CALC LDL CHOL (test code = 2237) 205 MG/DL RISK RATIO LDL/HDL (test code = 4.47 RATIO 2238) HEMOGLOBIN [id number] 00:00:00 Test Item Value Reference Range Interpretation Comments HEMOGLOBIN A1c (test code = 89167) 7.0 % HEMOGLOBIN [id number] 00:00:00 Test Item Value Reference Range Interpretation Comments HEMOGLOBIN A1c (test code = 64244) 7.0 % HEMOGLOBIN [id number] 00:00:00 Test Item Value Reference Range Interpretation Comments HEMOGLOBIN A1c (test code = 69982) 7.0 % [id number] 00:00:00 Test Item Value Reference Range Interpretation Comments TSH, THIRD GENERATION (test code 0.565 UIU/ML = 2821) [id number] 00:00:00 Test Item Value Reference Range Interpretation Comments TSH, THIRD GENERATION (test code 0.565 UIU/ML = 2821) [id number] 00:00:00 Test Item Value Reference Range Interpretation Comments TSH, THIRD GENERATION (test code 0.565 UIU/ML = 2821) [id number] 00:00:00 Test Item Value Reference Range Interpretation Comments TSH, THIRD GENERATION (test code 0.379 UIU/ML = 2821) [id number] 00:00:00 Test Item Value Reference Range Interpretation Comments TSH, THIRD GENERATION (test code 0.379 UIU/ML = 2821) [id number] 00:00:00 Test Item Value Reference Range Interpretation Comments TSH, THIRD GENERATION (test code 0.379 UIU/ML = 2821) [id number] 00:00:00 Test Item Value Reference Range Interpretation Comments TSH, THIRD GENERATION (test code 0.379 UIU/ML = 2821) [id number] 00:00:00 Test Item Value Reference Range Interpretation Comments TSH, THIRD GENERATION (test code 0.379 UIU/ML = 2821) [id number] 00:00:00 Test Item Value Reference Range Interpretation Comments TSH, THIRD GENERATION (test code 0.379 UIU/ML = 2821) [id number] 00:00:00 Test Item Value Reference Range Interpretation Comments TSH, THIRD GENERATION (test code 0.379 UIU/ML = 2821) [id number] 00:00:00 Test Item Value Reference Range Interpretation Comments TSH, THIRD GENERATION (test code 0.379 UIU/ML = 2821) [id number] 00:00:00 Test Item Value Reference Range Interpretation Comments TSH, THIRD GENERATION (test code 0.379 UIU/ML = 2821) [id number] 00:00:00 Test Item Value Reference Range Interpretation Comments TSH, THIRD GENERATION (test code 0.379 UIU/ML = 2821) [id number] 00:00:00 Test Item Value Reference Range Interpretation Comments TSH, THIRD GENERATION (test code 0.379 UIU/ML = 2821) CULTURE, [id number] 00:00:00 Test Item Value Reference Range Interpretation Comments CULTURE, URINE (test SPECIMEN NUMBER: code = 41425) [id number] CULTURE, [id number] 00:00:00 Test Item Value Reference Range Interpretation Comments CULTURE, URINE (test SPECIMEN NUMBER: code = 47201) [id number] CULTURE, [id number] 00:00:00 Test Item Value Reference Range Interpretation Comments CULTURE, URINE (test SPECIMEN NUMBER: code = 66332) [id number] CULTURE, [id number] 00:00:00 Test Item Value Reference Range Interpretation Comments CULTURE, URINE (test SPECIMEN NUMBER: code = 17346) [id number] CULTURE, [id number] 00:00:00 Test Item Value Reference Range Interpretation Comments CULTURE, URINE (test SPECIMEN NUMBER: code = 63296) [id number] CULTURE, [id number] 00:00:00 Test Item Value Reference Range Interpretation Comments CULTURE, URINE (test SPECIMEN NUMBER: code = 94398) [id number] CULTURE, [id number] 00:00:00 Test Item Value Reference Range Interpretation Comments CULTURE, URINE (test SPECIMEN NUMBER: code = 37256) [id number] COMPREHENSIVE METABOLIC [id number] 00:00:00 Test Item Value Reference Range Interpretation Comments GLUCOSE (test code = 2217) 128 MG/DL BUN (test code = 2208) 26 MG/DL CREATININE (test code = 2214) 0.92 MG/DL eGFR AMER. (test code 81 ML/MIN/1.73 = 95228) eGFR NON- AMER. (test 70 ML/MIN/1.73 code = 70452) CALC BUN/CREAT (test code = 28 RATIO [...] code = 2219) 29 U/L COMPREHENSIVE METABOLIC [id number] 00:00:00 Test Item Value Reference Range Interpretation Comments GLUCOSE (test code = 2217) 128 MG/DL BUN (test code = 2208) 26 MG/DL CREATININE (test code = 2214) 0.92 MG/DL eGFR AMER. (test code 81 ML/MIN/1.73 = 10441) eGFR NON- AMER. (test 70 ML/MIN/1.73 code = 75575) CALC BUN/CREAT (test code = 28 RATIO [...] code = 2219) 29 U/L ACUTE HEPATITIS [id number] 00:00:00 Test Item Value Reference Range Interpretation Comments HEPATITIS A IgM (test code = NON-REACTIVE 03165) HEPATITIS B CORE IgM (test code NON-REACTIVE = 4644) HEPATITIS B SURF AG (test code = NON-REACTIVE 2739) HEPATITIS C ANTIBODY (test code NON-REACTIVE = 4675) INTERPRETATION HEPATITIS A: (NOTE) (test code = 2552) INTERPRETATION HEPATITIS B: (NOTE) (test code = 92860) INTERPRETATION HEPATITIS C: (NOTE) (test code = 01068) ACUTE HEPATITIS [id number] 00:00:00 Test Item Value Reference Range Interpretation Comments HEPATITIS A IgM (test code = NON-REACTIVE 33341) HEPATITIS B CORE IgM (test code NON-REACTIVE = 4644) HEPATITIS B SURF AG (test code = NON-REACTIVE 2739) HEPATITIS C ANTIBODY (test code NON-REACTIVE = 4675) INTERPRETATION HEPATITIS A: (NOTE) (test code = 2552) INTERPRETATION HEPATITIS B: (NOTE) (test code = 92743) INTERPRETATION HEPATITIS C: (NOTE) (test code = 92645) [id number] 00:00:00 Test Item Value Reference Range Interpretation Comments AMYLASE (test code = 2205) 32 U/L [id number] 00:00:00 Test Item Value Reference Range Interpretation Comments AMYLASE (test code = 2205) 32 U/L [id number] 00:00:00 Test Item Value Reference Range Interpretation Comments LIPASE (test code = 2058) 22 U/L [id number] 00:00:00 Test Item Value Reference Range Interpretation Comments LIPASE (test code = 2058) 22 U/L [id number] 00:00:00 Test Item Value Reference Range Interpretation Comments LIPASE (test code = 2058) 22 U/L COMPREHENSIVE METABOLIC [id number] 00:00:00 Test Item Value Reference Range Interpretation Comments GLUCOSE (test code = 2217) 128 MG/DL BUN (test code = 2208) 26 MG/DL CREATININE (test code = 2214) 0.92 MG/DL eGFR AMER. (test code 81 ML/MIN/1.73 = 00139) eGFR NON- AMER. (test 70 ML/MIN/1.73 code = 16369) CALC BUN/CREAT (test code = 28 RATIO [...] code = 2219) 29 U/L COMPREHENSIVE METABOLIC [id number] 00:00:00 Test Item Value Reference Range Interpretation Comments GLUCOSE (test code = 2217) 128 MG/DL BUN (test code = 2208) 26 MG/DL CREATININE (test code = 2214) 0.92 MG/DL eGFR AMER. (test code 81 ML/MIN/1.73 = 85529) eGFR NON- AMER. (test 70 ML/MIN/1.73 code = 98491) CALC BUN/CREAT (test code = 28 RATIO [...] code = 2219) 29 U/L ACUTE HEPATITIS [id number] 00:00:00 Test Item Value Reference Range Interpretation Comments HEPATITIS A IgM (test code = NON-REACTIVE 99316) HEPATITIS B CORE IgM (test code NON-REACTIVE = 4644) HEPATITIS B SURF AG (test code = NON-REACTIVE 2739) HEPATITIS C ANTIBODY (test code NON-REACTIVE = 4675) INTERPRETATION HEPATITIS A: (NOTE) (test code = 2552) INTERPRETATION HEPATITIS B: (NOTE) (test code = 17733) INTERPRETATION HEPATITIS C: (NOTE) (test code = 56616) ACUTE HEPATITIS [id number] 00:00:00 Test Item Value Reference Range Interpretation Comments HEPATITIS A IgM (test code = NON-REACTIVE 97082) HEPATITIS B CORE IgM (test code NON-REACTIVE = 4644) HEPATITIS B SURF AG (test code = NON-REACTIVE 2739) HEPATITIS C ANTIBODY (test code NON-REACTIVE = 4675) INTERPRETATION HEPATITIS A: (NOTE) (test code = 2552) INTERPRETATION HEPATITIS B: (NOTE) (test code = 96761) INTERPRETATION HEPATITIS C: (NOTE) (test code = 81294) [id number] 00:00:00 Test Item Value Reference Range Interpretation Comments AMYLASE (test code = 2205) 32 U/L [id number] 00:00:00 Test Item Value Reference Range Interpretation Comments AMYLASE (test code = 2205) 32 U/L [id number] 00:00:00 Test Item Value Reference Range Interpretation Comments LIPASE (test code = 2058) 22 U/L [id number] 00:00:00 Test Item Value Reference Range Interpretation Comments LIPASE (test code = 2058) 22 U/L [id number] 00:00:00 Test Item Value Reference Range Interpretation Comments LIPASE (test code = 2058) 22 U/L COMPREHENSIVE METABOLIC [id number] 00:00:00 Test Item Value Reference Range Interpretation Comments GLUCOSE (test code = 2217) 128 MG/DL BUN (test code = 2208) 26 MG/DL CREATININE (test code = 2214) 0.92 MG/DL eGFR AMER. (test code 81 ML/MIN/1.73 = 48600) eGFR NON- AMER. (test 70 ML/MIN/1.73 code = 33743) CALC BUN/CREAT (test code = 28 RATIO [...] code = 2219) 29 U/L ACUTE HEPATITIS [id number] 00:00:00 Test Item Value Reference Range Interpretation Comments HEPATITIS A IgM (test code = NON-REACTIVE 46953) HEPATITIS B CORE IgM (test code NON-REACTIVE = 4644) HEPATITIS B SURF AG (test code = NON-REACTIVE 5669) HEPATITIS C ANTIBODY (test code NON-REACTIVE = 8985) INTERPRETATION HEPATITIS A: (NOTE) (test code = 2552) INTERPRETATION HEPATITIS B: (NOTE) (test code = 55728) INTERPRETATION HEPATITIS C: (NOTE) (test code = 50225) [id number] 00:00:00 Test Item Value Reference Range Interpretation Comments AMYLASE (test code = 2205) 32 U/L [id number] 00:00:00 Test Item Value Reference Range Interpretation Comments LIPASE (test code = 2058) 22 U/L [id number] 00:00:00 Test Item Value Reference Range Interpretation Comments LIPASE (test code = 2058) 22 U/L COMPREHENSIVE METABOLIC [id number] 00:00:00 Test Item Value Reference Range Interpretation Comments GLUCOSE (test code = 2217) 128 MG/DL BUN (test code = 2208) 26 MG/DL CREATININE (test code = 2214) 0.92 MG/DL eGFR AMER. (test code 81 ML/MIN/1.73 = 01766) eGFR NON- AMER. (test 70 ML/MIN/1.73 code = 49668) CALC BUN/CREAT (test code = 28 RATIO [...] code = 2219) 29 U/L COMPREHENSIVE METABOLIC [id number] 00:00:00 Test Item Value Reference Range Interpretation Comments GLUCOSE (test code = 2217) 128 MG/DL BUN (test code = 2208) 26 MG/DL CREATININE (test code = 2214) 0.92 MG/DL eGFR AMER. (test code 81 ML/MIN/1.73 = 83187) eGFR NON- AMER. (test 70 ML/MIN/1.73 code = 07626) CALC BUN/CREAT (test code = 28 RATIO [...] code = 2219) 29 U/L ACUTE HEPATITIS [id number] 00:00:00 Test Item Value Reference Range Interpretation Comments HEPATITIS A IgM (test code = NON-REACTIVE 26857) HEPATITIS B CORE IgM (test code NON-REACTIVE = 4644) HEPATITIS B SURF AG (test code = NON-REACTIVE 2739) HEPATITIS C ANTIBODY (test code NON-REACTIVE = 4675) INTERPRETATION HEPATITIS A: (NOTE) (test code = 2552) INTERPRETATION HEPATITIS B: (NOTE) (test code = 16675) INTERPRETATION HEPATITIS C: (NOTE) (test code = 26172) ACUTE HEPATITIS [id number] 00:00:00 Test Item Value Reference Range Interpretation Comments HEPATITIS A IgM (test code = NON-REACTIVE 25387) HEPATITIS B CORE IgM (test code NON-REACTIVE = 4644) HEPATITIS B SURF AG (test code = NON-REACTIVE 2739) HEPATITIS C ANTIBODY (test code NON-REACTIVE = 4675) INTERPRETATION HEPATITIS A: (NOTE) (test code = 2552) INTERPRETATION HEPATITIS B: (NOTE) (test code = 90647) INTERPRETATION HEPATITIS C: (NOTE) (test code = 72113) [id number] 00:00:00 Test Item Value Reference Range Interpretation Comments AMYLASE (test code = 2205) 32 U/L [id number] 00:00:00 Test Item Value Reference Range Interpretation Comments AMYLASE (test code = 2205) 32 U/L [id number] 00:00:00 Test Item Value Reference Range Interpretation Comments LIPASE (test code = 2058) 22 U/L [id number] 00:00:00 Test Item Value Reference Range Interpretation Comments LIPASE (test code = 2058) 22 U/L [id number] 00:00:00 Test Item Value Reference Range Interpretation Comments LIPASE (test code = 2058) 22 U/L [id number] 00:00:00 Test Item Value Reference Range Interpretation Comments TSH, THIRD GENERATION (test code 4.890 UIU/ML = 2821) [id number] 00:00:00 Test Item Value Reference Range Interpretation Comments TSH, THIRD GENERATION (test code 4.890 UIU/ML = 2821) [id number] 00:00:00 Test Item Value Reference Range Interpretation Comments TSH, THIRD GENERATION (test code 4.890 UIU/ML = 2821) COMPREHENSIVE METABOLIC [id number] 00:00:00 Test Item Value Reference Range Interpretation Comments GLUCOSE (test code = 2217) 121 MG/DL BUN (test code = 2208) 40 MG/DL CREATININE (test code = 2214) 1.48 MG/DL eGFR AMER. (test code 45 ML/MIN/1.73 = 00150) eGFR NON- AMER. (test 39 ML/MIN/1.73 code = 37952) CALC BUN/CREAT (test code = 27 RATIO [...] code = 2219) 20 U/L COMPREHENSIVE METABOLIC [id number] 00:00:00 Test Item Value Reference Range Interpretation Comments GLUCOSE (test code = 2217) 121 MG/DL BUN (test code = 2208) 40 MG/DL CREATININE (test code = 2214) 1.48 MG/DL eGFR AMER. (test code 45 ML/MIN/1.73 = 25242) eGFR NON- AMER. (test 39 ML/MIN/1.73 code = 66392) CALC BUN/CREAT (test code = 27 RATIO [...] ALT (test code = 2219) 20 U/L [id number] 00:00:00 Test Item Value Reference Range Interpretation Comments TSH, THIRD GENERATION (test code 4.890 UIU/ML = 2821) [id number] 00:00:00 Test Item Value Reference Range Interpretation Comments TSH, THIRD GENERATION (test code 4.890 UIU/ML = 2821) [id number] 00:00:00 Test Item Value Reference Range Interpretation Comments TSH, THIRD GENERATION (test code 4.890 UIU/ML = 2821) COMPREHENSIVE METABOLIC [id number] 00:00:00 Test Item Value Reference Range Interpretation Comments GLUCOSE (test code = 2217) 121 MG/DL BUN (test code = 2208) 40 MG/DL CREATININE (test code = 2214) 1.48 MG/DL eGFR AMER. (test code 45 ML/MIN/1.73 = 36283) eGFR NON- AMER. (test 39 ML/MIN/1.73 code = 83282) CALC BUN/CREAT (test code = 27 RATIO [...] code = 2219) 20 U/L COMPREHENSIVE METABOLIC [id number] 00:00:00 Test Item Value Reference Range Interpretation Comments GLUCOSE (test code = 2217) 121 MG/DL BUN (test code = 2208) 40 MG/DL CREATININE (test code = 2214) 1.48 MG/DL eGFR AMER. (test code 45 ML/MIN/1.73 = 97256) eGFR NON- AMER. (test 39 ML/MIN/1.73 code = 95239) CALC BUN/CREAT (test code = 27 RATIO [...] ALT (test code = 2219) 20 U/L [id number] 00:00:00 Test Item Value Reference Range Interpretation Comments TSH, THIRD GENERATION (test code 4.890 UIU/ML = 2821) [id number] 00:00:00 Test Item Value Reference Range Interpretation Comments TSH, THIRD GENERATION (test code 4.890 UIU/ML = 2821) COMPREHENSIVE METABOLIC [id number] 00:00:00 Test Item Value Reference Range Interpretation Comments GLUCOSE (test code = 2217) 121 MG/DL BUN (test code = 2208) 40 MG/DL CREATININE (test code = 2214) 1.48 MG/DL eGFR AMER. (test code 45 ML/MIN/1.73 = 83062) eGFR NON- AMER. (test 39 ML/MIN/1.73 code = 92994) CALC BUN/CREAT (test code = 27 RATIO [...] ALT (test code = 2219) 20 U/L [id number] 00:00:00 Test Item Value Reference Range Interpretation Comments TSH, THIRD GENERATION (test code 4.890 UIU/ML = 2821) [id number] 00:00:00 Test Item Value Reference Range Interpretation Comments TSH, THIRD GENERATION (test code 4.890 UIU/ML = 2821) [id number] 00:00:00 Test Item Value Reference Range Interpretation Comments TSH, THIRD GENERATION (test code 4.890 UIU/ML = 2821) COMPREHENSIVE METABOLIC [id number] 00:00:00 Test Item Value Reference Range Interpretation Comments GLUCOSE (test code = 2217) 121 MG/DL BUN (test code = 2208) 40 MG/DL CREATININE (test code = 2214) 1.48 MG/DL eGFR AMER. (test code 45 ML/MIN/1.73 = 90810) eGFR NON- AMER. (test 39 ML/MIN/1.73 code = 25473) CALC BUN/CREAT (test code = 27 RATIO [...] code = 2219) 20 U/L COMPREHENSIVE METABOLIC [id number] 00:00:00 Test Item Value Reference Range Interpretation Comments GLUCOSE (test code = 2217) 121 MG/DL BUN (test code = 2208) 40 MG/DL CREATININE (test code = 2214) 1.48 MG/DL eGFR AMER. (test code 45 ML/MIN/1.73 = 55861) eGFR NON- AMER. (test 39 ML/MIN/1.73 code = 53521) CALC BUN/CREAT (test code = 27 RATIO [...] (test code = 2219) 20 U/L LIPID [id number] 00:00:00 Test Item Value Reference Range Interpretation Comments CHOLESTEROL (test code = 2210) 261 MG/DL TRIGLYCERIDES (test code = 2232) 165 MG/DL HDL CHOLESTEROL (test code = 2220) 58 MG/DL CALC LDL CHOL (test code = 2237) 170 MG/DL RISK RATIO LDL/HDL (test code = 2.93 RATIO 2238) LIPID [id number] 00:00:00 Test Item Value Reference Range Interpretation Comments CHOLESTEROL (test code = 2210) 261 MG/DL TRIGLYCERIDES (test code = 2232) 165 MG/DL HDL CHOLESTEROL (test code = 2220) 58 MG/DL CALC LDL CHOL (test code = 2237) 170 MG/DL RISK RATIO LDL/HDL (test code = 2.93 RATIO 2238) CBC W/AUTO [id number] 00:00:00 Test Item Value Reference Range Interpretation [...] code = 1015) 378 K/UL CBC W/AUTO [id number] 00:00:00 Test Item Value Reference Range Interpretation [...] code = 1015) 378 K/UL CBC W/AUTO [id number] 00:00:00 Test Item Value Reference Range Interpretation [...] (test code = 1015) 378 K/UL HEMOGLOBIN [id number] 00:00:00 Test Item Value Reference Range Interpretation Comments HEMOGLOBIN A1c (test code = 62016) 6.4 % HEMOGLOBIN [id number] 00:00:00 Test Item Value Reference Range Interpretation Comments HEMOGLOBIN A1c (test code = 64044) 6.4 % HEMOGLOBIN [id number] 00:00:00 Test Item Value Reference Range Interpretation Comments HEMOGLOBIN A1c (test code = 60167) 6.4 % [id number] 00:00:00 Test Item Value Reference Range Interpretation Comments TSH (test code = 2821) 5.290 UIU/ML [id number] 00:00:00 Test Item Value Reference Range Interpretation Comments TSH (test code = 2821) 5.290 UIU/ML [id number] 00:00:00 Test Item Value Reference Range Interpretation Comments TSH (test code = 2821) 5.290 UIU/ML LIPID [id number] 00:00:00 Test Item Value Reference Range Interpretation Comments CHOLESTEROL (test code = 2210) 261 MG/DL TRIGLYCERIDES (test code = 2232) 165 MG/DL HDL CHOLESTEROL (test code = 2220) 58 MG/DL CALC LDL CHOL (test code = 2237) 170 MG/DL RISK RATIO LDL/HDL (test code = 2.93 RATIO 2238) LIPID [id number] 00:00:00 Test Item Value Reference Range Interpretation Comments CHOLESTEROL (test code = 2210) 261 MG/DL TRIGLYCERIDES (test code = 2232) 165 MG/DL HDL CHOLESTEROL (test code = 2220) 58 MG/DL CALC LDL CHOL (test code = 2237) 170 MG/DL RISK RATIO LDL/HDL (test code = 2.93 RATIO 2238) CBC W/AUTO [id number] 00:00:00 Test Item Value Reference Range Interpretation [...] code = 1015) 378 K/UL CBC W/AUTO [id number] 00:00:00 Test Item Value Reference Range Interpretation [...] code = 1015) 378 K/UL CBC W/AUTO [id number] 00:00:00 Test Item Value Reference Range Interpretation [...] (test code = 1015) 378 K/UL HEMOGLOBIN [id number] 00:00:00 Test Item Value Reference Range Interpretation Comments HEMOGLOBIN A1c (test code = 04585) 6.4 % HEMOGLOBIN [id number] 00:00:00 Test Item Value Reference Range Interpretation Comments HEMOGLOBIN A1c (test code = 77696) 6.4 % HEMOGLOBIN [id number] 00:00:00 Test Item Value Reference Range Interpretation Comments HEMOGLOBIN A1c (test code = 46587) 6.4 % [id number] 00:00:00 Test Item Value Reference Range Interpretation Comments TSH (test code = 2821) 5.290 UIU/ML [id number] 00:00:00 Test Item Value Reference Range Interpretation Comments TSH (test code = 2821) 5.290 UIU/ML [id number] 00:00:00 Test Item Value Reference Range Interpretation Comments TSH (test code = 2821) 5.290 UIU/ML LIPID [id number] 00:00:00 Test Item Value Reference Range Interpretation Comments CHOLESTEROL (test code = 2210) 261 MG/DL TRIGLYCERIDES (test code = 2232) 165 MG/DL HDL CHOLESTEROL (test code = 2220) 58 MG/DL CALC LDL CHOL (test code = 2237) 170 MG/DL RISK RATIO LDL/HDL (test code = 2.93 RATIO 2238) CBC W/AUTO [id number] 00:00:00 Test Item Value Reference Range Interpretation [...] code = 1015) 378 K/UL CBC W/AUTO [id number] 00:00:00 Test Item Value Reference Range Interpretation [...] (test code = 1015) 378 K/UL HEMOGLOBIN [id number] 00:00:00 Test Item Value Reference Range Interpretation Comments HEMOGLOBIN A1c (test code = 65117) 6.4 % HEMOGLOBIN [id number] 00:00:00 Test Item Value Reference Range Interpretation Comments HEMOGLOBIN A1c (test code = 96439) 6.4 % [id number] 00:00:00 Test Item Value Reference Range Interpretation Comments TSH (test code = 2821) 5.290 UIU/ML [id number] 00:00:00 Test Item Value Reference Range Interpretation Comments TSH (test code = 2821) 5.290 UIU/ML LIPID [id number] 00:00:00 Test Item Value Reference Range Interpretation Comments CHOLESTEROL (test code = 2210) 261 MG/DL TRIGLYCERIDES (test code = 2232) 165 MG/DL HDL CHOLESTEROL (test code = 2220) 58 MG/DL CALC LDL CHOL (test code = 2237) 170 MG/DL RISK RATIO LDL/HDL (test code = 2.93 RATIO 2238) LIPID [id number] 00:00:00 Test Item Value Reference Range Interpretation Comments CHOLESTEROL (test code = 2210) 261 MG/DL TRIGLYCERIDES (test code = 2232) 165 MG/DL HDL CHOLESTEROL (test code = 2220) 58 MG/DL CALC LDL CHOL (test code = 2237) 170 MG/DL RISK RATIO LDL/HDL (test code = 2.93 RATIO 2238) CBC W/AUTO [id number] 00:00:00 Test Item Value Reference Range Interpretation [...] code = 1015) 378 K/UL CBC W/AUTO [id number] 00:00:00 Test Item Value Reference Range Interpretation [...] code = 1015) 378 K/UL CBC W/AUTO [id number] 00:00:00 Test Item Value Reference Range Interpretation [...] (test code = 1015) 378 K/UL HEMOGLOBIN [id number] 00:00:00 Test Item Value Reference Range Interpretation Comments HEMOGLOBIN A1c (test code = 32235) 6.4 % HEMOGLOBIN [id number] 00:00:00 Test Item Value Reference Range Interpretation Comments HEMOGLOBIN A1c (test code = 13318) 6.4 % HEMOGLOBIN [id number] 00:00:00 Test Item Value Reference Range Interpretation Comments HEMOGLOBIN A1c (test code = 44095) 6.4 % [id number] 00:00:00 Test Item Value Reference Range Interpretation Comments TSH (test code = 2821) 5.290 UIU/ML [id number] 00:00:00 Test Item Value Reference Range Interpretation Comments TSH (test code = 2821) 5.290 UIU/ML [id number] 00:00:00 Test Item Value Reference Range Interpretation [...] code = 2821) 1.030 UIU/ML COMPREHENSIVE METABOLIC [id number] 00:00:00 Test Item Value Reference Range Interpretation Comments GLUCOSE (test code = 2217) 106 MG/DL BUN (test code = 2208) 23 MG/DL CREATININE (test code = 2214) 0.66 MG/DL eGFR AMER. (test code 114 ML/MIN/1.73 = 22989) eGFR NON- AMER. (test 99 ML/MIN/1.73 code = 03094) CALC BUN/CREAT (test code = 35 RATIO [...] code = 2219) 31 U/L COMPREHENSIVE METABOLIC [id number] 00:00:00 Test Item Value Reference Range Interpretation Comments GLUCOSE (test code = 2217) 106 MG/DL BUN (test code = 2208) 23 MG/DL CREATININE (test code = 2214) 0.66 MG/DL eGFR AMER. (test code 114 ML/MIN/1.73 = 42998) eGFR NON- AMER. (test 99 ML/MIN/1.73 code = 54736) CALC BUN/CREAT (test code = 35 RATIO [...] CALCULATED T7 (FTI) (test code = 1.71 3090) TSH (test code = 2821) 0.335 UIU/ML THYROID II PROFILE (T3U, T4, T7, [id number] 00:00:00 Test Item Value Reference Range Interpretation Comments T3 UPTAKE (test code = 2817) 31.6 % T4 (THYROXINE) (test code = 5.4 UG/DL 281) CALCULATED T7 (FTI) (test code = 1.71 2820) TSH (test code = 2821) 0.335 UIU/ML COMPREHENSIVE METABOLIC [id number] 00:00:00 Test Item Value Reference Range Interpretation Comments GLUCOSE (test code = 2217) 106 MG/DL BUN (test code = 2208) 23 MG/DL CREATININE (test code = 2214) 0.66 MG/DL eGFR AMER. (test code 114 ML/MIN/1.73 = 56735) eGFR NON- AMER. (test 99 ML/MIN/1.73 code = 03506) CALC BUN/CREAT (test code = 35 RATIO [...] code = 2219) 31 U/L COMPREHENSIVE METABOLIC [id number] 00:00:00 Test Item Value Reference Range Interpretation Comments GLUCOSE (test code = 2217) 106 MG/DL BUN (test code = 2208) 23 MG/DL CREATININE (test code = 2214) 0.66 MG/DL eGFR AMER. (test code 114 ML/MIN/1.73 = 18878) eGFR NON- AMER. (test 99 ML/MIN/1.73 code = 33857) CALC BUN/CREAT (test code = 35 RATIO [...] code = 2821) 0.335 UIU/ML COMPREHENSIVE METABOLIC [id number] 00:00:00 Test Item Value Reference Range Interpretation Comments GLUCOSE (test code = 2217) 106 MG/DL BUN (test code = 2208) 23 MG/DL CREATININE (test code = 2214) 0.66 MG/DL eGFR AMER. (test code 114 ML/MIN/1.73 = 60421) eGFR NON- AMER. (test 99 ML/MIN/1.73 code = 85244) CALC BUN/CREAT (test code = 35 RATIO [...] code = 2821) 0.335 UIU/ML COMPREHENSIVE METABOLIC [id number] 00:00:00 Test Item Value Reference Range Interpretation Comments GLUCOSE (test code = 2217) 106 MG/DL BUN (test code = 2208) 23 MG/DL CREATININE (test code = 2214) 0.66 MG/DL eGFR AMER. (test code 114 ML/MIN/1.73 = 84416) eGFR NON- AMER. (test 99 ML/MIN/1.73 code = 49750) CALC BUN/CREAT (test code = 35 RATIO [...] code = 2219) 31 U/L COMPREHENSIVE METABOLIC [id number] 00:00:00 Test Item Value Reference Range Interpretation Comments GLUCOSE (test code = 2217) 106 MG/DL BUN (test code = 2208) 23 MG/DL CREATININE (test code = 2214) 0.66 MG/DL eGFR AMER. (test code 114 ML/MIN/1.73 = 80596) eGFR NON- AMER. (test 99 ML/MIN/1.73 code = 71801) CALC BUN/CREAT (test code = 35 RATIO [...] code = 2821) 0.335 UIU/ML COMPREHENSIVE METABOLIC [id number] 00:00:00 Test Item Value Reference Range Interpretation Comments GLUCOSE (test code = 2217) 103 MG/DL BUN (test code = 2208) 15 MG/DL CREATININE (test code = 2214) 0.77 MG/DL eGFR AMER. (test code 101 ML/MIN/1.73 = 28899) eGFR NON- AMER. (test 87 ML/MIN/1.73 code = 72074) CALC BUN/CREAT (test code = 19 RATIO [...] code = 2219) 24 U/L COMPREHENSIVE METABOLIC [id number] 00:00:00 Test Item Value Reference Range Interpretation Comments GLUCOSE (test code = 2217) 103 MG/DL BUN (test code = 2208) 15 MG/DL CREATININE (test code = 2214) 0.77 MG/DL eGFR AMER. (test code 101 ML/MIN/1.73 = 52791) eGFR NON- AMER. (test 87 ML/MIN/1.73 code = 51619) CALC BUN/CREAT (test code = 19 RATIO [...] code = 2821) 0.424 UIU/ML COMPREHENSIVE METABOLIC [id number] 00:00:00 Test Item Value Reference Range Interpretation Comments GLUCOSE (test code = 2217) 103 MG/DL BUN (test code = 2208) 15 MG/DL CREATININE (test code = 2214) 0.77 MG/DL eGFR AMER. (test code 101 ML/MIN/1.73 = 39084) eGFR NON- AMER. (test 87 ML/MIN/1.73 code = 51352) CALC BUN/CREAT (test code = 19 RATIO [...] code = 2219) 24 U/L COMPREHENSIVE METABOLIC [id number] 00:00:00 Test Item Value Reference Range Interpretation Comments GLUCOSE (test code = 2217) 103 MG/DL BUN (test code = 2208) 15 MG/DL CREATININE (test code = 2214) 0.77 MG/DL eGFR AMER. (test code 101 ML/MIN/1.73 = 78221) eGFR NON- AMER. (test 87 ML/MIN/1.73 code = 82508) CALC BUN/CREAT (test code = 19 RATIO [...] code = 2821) 0.424 UIU/ML COMPREHENSIVE METABOLIC [id number] 00:00:00 Test Item Value Reference Range Interpretation Comments GLUCOSE (test code = 2217) 103 MG/DL BUN (test code = 2208) 15 MG/DL CREATININE (test code = 2214) 0.77 MG/DL eGFR AMER. (test code 101 ML/MIN/1.73 = 04235) eGFR NON- AMER. (test 87 ML/MIN/1.73 code = 34290) CALC BUN/CREAT (test code = 19 RATIO [...] code = 2821) 0.424 UIU/ML COMPREHENSIVE METABOLIC [id number] 00:00:00 Test Item Value Reference Range Interpretation Comments GLUCOSE (test code = 2217) 103 MG/DL BUN (test code = 2208) 15 MG/DL CREATININE (test code = 2214) 0.77 MG/DL eGFR AMER. (test code 101 ML/MIN/1.73 = 64701) eGFR NON- AMER. (test 87 ML/MIN/1.73 code = 92794) CALC BUN/CREAT (test code = 19 RATIO [...] code = 2219) 24 U/L COMPREHENSIVE METABOLIC [id number] 00:00:00 Test Item Value Reference Range Interpretation Comments GLUCOSE (test code = 2217) 103 MG/DL BUN (test code = 2208) 15 MG/DL CREATININE (test code = 2214) 0.77 MG/DL eGFR AMER. (test code 101 ML/MIN/1.73 = 63895) eGFR NON- AMER. (test 87 ML/MIN/1.73 code = 65255) CALC BUN/CREAT (test code = 19 RATIO [...] (test code = 2821) 0.424 UIU/ML CULTURE, [id number] 00:00:00 Test Item Value Reference Range Interpretation Comments CULTURE, URINE (test SPECIMEN NUMBER: code = 77136) [id number] CULTURE, [id number] 00:00:00 Test Item Value Reference Range Interpretation Comments CULTURE, URINE (test SPECIMEN NUMBER: code = 80607) [id number] CULTURE, [id number] 00:00:00 Test Item Value Reference Range Interpretation Comments CULTURE, URINE (test SPECIMEN NUMBER: code = 17472) [id number] CULTURE, [id number] 00:00:00 Test Item Value Reference Range Interpretation Comments CULTURE, URINE (test SPECIMEN NUMBER: code = 75537) [id number] CULTURE, [id number] 00:00:00 Test Item Value Reference Range Interpretation Comments CULTURE, URINE (test SPECIMEN NUMBER: code = 72428) [id number] CULTURE, [id number] 00:00:00 Test Item Value Reference Range Interpretation Comments CULTURE, URINE (test SPECIMEN NUMBER: code = 17464) [id number] CULTURE, [id number] 00:00:00 Test Item Value Reference Range Interpretation Comments CULTURE, URINE (test SPECIMEN NUMBER: code = 79212) [id number] CULTURE, [id number] 00:00:00 Test Item Value Reference Range Interpretation Comments CULTURE, URINE (test SPECIMEN NUMBER: code = 33054) [id number] CULTURE, [id number] 00:00:00 Test Item Value Reference Range Interpretation Comments CULTURE, URINE (test SPECIMEN NUMBER: code = 55943) [id number] CULTURE, [id number] 00:00:00 Test Item Value Reference Range Interpretation Comments CULTURE, URINE (test SPECIMEN NUMBER: code = 64555) [id number] CULTURE, [id number] 00:00:00 Test Item Value Reference Range Interpretation Comments CULTURE, URINE (test SPECIMEN NUMBER: code = 42246) [id number] CULTURE, [id number] 00:00:00 Test Item Value Reference Range Interpretation Comments CULTURE, URINE (test SPECIMEN NUMBER: code = 17963) [id number] CULTURE, [id number] 00:00:00 Test Item Value Reference Range Interpretation Comments CULTURE, URINE (test SPECIMEN NUMBER: code = 26724) [id number] CULTURE, [id number] 00:00:00 Test Item Value Reference Range Interpretation Comments CULTURE, URINE (test SPECIMEN NUMBER: code = 73685) [id number]
[2022-05-16] MEDS ORDERED: MORPHINE 4 MG/ML SYR ONE (06:00)
[2022-05-16] MEDS ORDERED: ONDANSETRON 4 MG/2 ML VIAL ONE (06:00)
[2022-05-16] MEDS ORDERED: NA CHLORIDE 0.9% 1,000 ML ONE ×2 (06:00→06:14)
[2022-05-16] MEDS ORDERED: FAMOTIDINE 20 MG/2 ML VIAL IV ONE (06:00)
[2022-05-16 06:15] LABS: Absolute Lymphocytes (CBC) 2.5 K/uL (0.7-4.9); Hematocrit 35.1 % (36.0-45.0); Lymphocytes % 23.7 % (15.3-44.8); MCV 92.5 fL (80-100); MPV 6.5 fL (7.6-11.3)
[2022-05-16 06:29] LABS: Albumin 3.6 g/dL (3.4-5.0); Bilirubin Total 0.2 mg/dL (0.2-1.0); Potassium 4.1 mmol/L (3.5-5.1); Protein, Total 7.3 g/dL (6.4-8.2)
[2022-05-16] MEDS ORDERED: PROMETHAZINE INJ 25 MG/ML AMP ONE (06:48)
[2022-05-16 08:15] VITALS: O2SAT 100
[2022-05-16 09:11] VITALS: TEMP 98.1
[2022-05-16 09:13] VITALS: BP 130/91
--- NOTE | 2022-05-30 16:29 | EDPHYS ---
Physician Documentation [facility] Name: Jaimie Amanda Age: 61 yrs Sex: Female : 1960 Arrival Date: 05/16/2022 Time: 05:40 Bed 7 Private MD: Diego Nascimento HPI: 05/16 06:29 This 61 yrs old Female presents to ER via Ambulatory with complaints of hannah Abdominal Pain. 06:29 The patient presents with abdominal pain in the epigastric area. Onset: The hannah symptoms/episode began/occurred 2 day(s) ago. Onset: The symptoms/episode began/occurred gradually. The patient presents to the emergency department with nausea, vomiting, that is intermittent. Onset: The symptoms/episode began/occurred 2 day(s) ago. Possible causes: unknown. The symptoms are aggravated by nothing. The symptoms are alleviated by nothing. Associated signs and symptoms: The patient has no apparent associated signs or symptoms. The symptoms do not radiate. Modifying factors: The symptoms are alleviated by nothing. Historical: - Allergies: 05:49 No Known Allergies; as6 - PMHx: 05:49 Anxiety; Chronic Abdominal Pain; Hypertensive disorder; Hypothyroidism; low NA; NIDDM; as6 - PSHx: 05:49 Thyroidectomy; as6 - Immunization history:: Client reports receiving the 2nd dose of the Covid vaccine. - Social history:: Smoking status: Patient reports the use of cigarette tobacco products, smokes one pack cigarettes per day. - Family history:: not pertinent. ROS: 06:29 Constitutional: Negative for fever, chills, and weight loss, Eyes: Negative for injury, hannah pain, redness, and discharge, ENT: Negative for injury, pain, and discharge, Neck: Negative for injury, pain, and swelling, Cardiovascular: Negative for chest pain, palpitations, and edema, Respiratory: Negative for shortness of breath, cough, wheezing, and pleuritic chest pain, Back: Negative for injury and pain, : Negative for injury, bleeding, discharge, and swelling, MS/Extremity: Negative for injury and deformity, Skin: Negative for injury, rash, and discoloration, Neuro: Negative for headache, weakness, numbness, tingling, and seizure, Psych: Negative for depression, anxiety, suicide ideation, homicidal ideation, and hallucinations, Allergy/Immunology: Negative for hives, rash, and allergies, Endocrine: Negative for neck swelling, polydipsia, polyuria, polyphagia, and marked weight changes, Hematologic/Lymphatic: Negative for swollen nodes, abnormal bleeding, and unusual bruising. 06:29 Abdomen/GI: Positive for abdominal pain, nausea and vomiting, of the epigastric area, right upper quadrant and left upper quadrant. 06:49 : Negative for urinary symptoms, urinary frequency, small amounts, hematuria, burning hannah with urination, difficulty urinating, foul smelling urine. Exam: 06:29 Constitutional: This is a well developed, well nourished patient who is awake, alert, hannah and in no acute distress. Head/Face: Normocephalic, atraumatic. Eyes: Pupils equal round and reactive to light, extra-ocular motions intact. Lids and lashes normal. Conjunctiva and sclera are non-icteric and not injected. Cornea within normal limits. Periorbital areas with no swelling, redness, or edema. ENT: Nares patent. No nasal discharge, no septal abnormalities noted. Tympanic membranes are normal and external auditory canals are clear. Oropharynx with no redness, swelling, or masses, exudates, or evidence of obstruction, uvula midline. Mucous membranes moist. Neck: Trachea midline, no thyromegaly or masses palpated, and no cervical lymphadenopathy. Supple, full range of motion without nuchal rigidity, or vertebral point tenderness. No Meningismus. Chest/axilla: Normal chest wall appearance and motion. Nontender with no deformity. No lesions are appreciated. Cardiovascular: Regular rate and rhythm with a normal S1 and S2. No gallops, murmurs, or rubs. Normal PMI, no JVD. No pulse deficits. Respiratory: Lungs have equal breath sounds bilaterally, clear to auscultation and percussion. No rales, rhonchi or wheezes noted. No increased work of breathing, no retractions or nasal flaring. Back: No spinal tenderness. No costovertebral tenderness. Full range of motion. Female : Normal external genitalia. Skin: Warm, dry with normal turgor. Normal color with no rashes, no lesions, and no evidence of cellulitis. MS/ Extremity: Pulses equal, no cyanosis. Neurovascular intact. Full, normal range of motion. Neuro: Awake and alert, GCS 15, oriented to person, place, time, and situation. Cranial nerves II-XII grossly intact. Motor strength 5/5 in all extremities. Sensory grossly intact. Cerebellar exam normal. Normal gait. Psych: Awake, alert, with orientation to person, place and time. Behavior, mood, and affect are within normal limits. 06:29 Abdomen/GI: Inspection: abdomen appears normal, Bowel sounds: normal, Palpation: abdomen is soft and non-tender, Liver: no appreciated palpable abnormalities, Hernia: not appreciated. Vital Signs: 05:50 BP 150 / 69; Pulse 87; Resp 18 S; Temp 97.6(O); Pulse Ox 99% on R/A; Weight 70.31 kg as6 (R); Height 5 ft. 5 in. (R); Pain 9/10; 06:41 BP 171 / 78; Pulse 85; Resp 18 S; Pulse Ox 100% on R/A; as6 05:50 Body Mass Index 25.79 (70.31 kg, 165.1 cm) as6 05:50 Pain Scale: Adult as6 MDM: 06:06 Patient medically screened. hannah 06:43 Differential diagnosis: Nonspecific abd pain, cholecystitis, pancreatitis, viral hannah gastroenteritis, gastroenteritis, bowel obstruction, Cholelithiasis, gastritis, gastroesophageal reflux disease, non-specific abd pain, pancreatitis, Peptic Ulcer Disease, urinary tract infection. Data reviewed: vital signs, nurses notes, lab test result(s). Consideration of Admission/Observation Escalation of care including admission/observation considered. I considered the following discharge prescriptions or medication management in the emergency department Medications were administered in the Emergency Department. See MAR. Test considered but Not performed: Labs: no abd series. Ultrasound no abd usg. CT: no ct abd pelvis. Care significantly affected by the following chronic conditions: Diabetes, Hypertension, anxiety, chronic pain. 03 05:49 Order name: CBC with Diff; Complete Time: 06:42 05/16 05:49 Order name: CMP; Complete Time: 06:42 05/16 05:49 Order name: Lipase; Complete Time: 06:42 05/16 05:49 Order name: IV Saline Lock; Complete Time: 06:14 05/16 05:49 Order name: Labs collected and sent; Complete Time: 06:05 as6 Administered Medications: 06:07 Drug: NS 0.9% IV 1000 ml Route: IV; Rate: 1 bolus; Site: left antecubital; ha1 07:25 Follow up: IV Status: Completed infusion; IV Intake: 1000ml vg1 06:10 Drug: Famotidine IVP 10 mg Route: IVP; Site: left antecubital; ha1 06:49 Follow up: Response: No adverse reaction as6 06:13 Drug: morphine IVP or IV 4 mg Route: IVP; Infused Over: 4 mins; Site: left antecubital; ha1 06:49 Follow up: Response: No adverse reaction as6 06:15 Drug: Ondansetron IVP 4 mg Route: IVP; Site: left antecubital; ha1 06:42 Follow up: Response: No adverse reaction; Nausea unchanged ha1 06:50 Follow up: Response: No adverse reaction as6 06:45 Drug: Promethazine IM 25 mg Route: IM; Site: right deltoid; as6 06:49 Follow up: Response: No adverse reaction as6 Disposition Summary: 05/16/22 06:47 Discharge Ordered Location: Home hannah Problem: new hannah Symptoms: have improved hannah Condition: Stable hannah Diagnosis - Epigastric abdominal tenderness hannah - Vomiting hannah - Hypo-osmolality and hyponatremia - mild hannah Followup: hannah - With: Private Physician - When: 2 - 3 days - Reason: Recheck today's complaints, Continuance of care, Re-evaluation by your physician Followup: hannah - With: Nataliia Flores MD - When: 2 - 3 days - Reason: Recheck today's complaints, Continuance of care, Re-evaluation by your physician Discharge Instructions: - Discharge Summary Sheet hannah - Abdominal Pain, Adult hannah - Chronic Pain, Adult hannah - Hyponatremia hannah - Abdominal Pain, Adult, [id number] hannah - Hyponatremia, [id number] hannah - Vomiting, Adult hannah Forms: - Medication Reconciliation Form hannah - Thank You Letter hannah - Antibiotic Education hannah - Prescription Opioid Use [facility] Prescriptions: - Pepcid 20 mg Oral Tablet - take 1 tablet by ORAL route every 12 hours for 21 days; 42 tablet; Refills: 0, [facility] Product Selection Permitted - Zofran 4 mg Oral Tablet - take 1 tablet by ORAL route every 12 hours As needed; 20 tablet; Refills: 0, [facility] Product Selection Permitted - promethazine 25 mg Oral Tablet - take 1 tablet by ORAL route every 6 hours As needed; 20 tablet; Refills: 0, hannah Product Selection Permitted Signatures: Dispatcher [employer] Diego Osorio MD MD cha Slawson, Ashby RN RN as6 Christal Flores RN RN ha1 Geneva Ramirez RN vg1 Corrections: (The following items were deleted from the chart) 06:49 05:49 Urine Dipstick-Ancillary ordered. as6 as6
--- NOTE | 2022-05-30 16:29 | ER ---
Nurse's Notes [facility] Name: Jaimie Amanda Age: 61 yrs Sex: Female : 1960 Arrival Date: 05/16/2022 Time: 05:40 Bed 7 Private MD: Diagnosis: Epigastric abdominal tenderness;Vomiting;Hypo-osmolality and hyponatremia-mild Presentation: 05/16 05:50 Chief complaint: Patient states: "I'm having nausea and abdominal pain". Coronavirus as6 screen: At this time, the client does not indicate any symptoms associated with coronavirus-19. Ebola Screen: No symptoms or risks identified at this time. Initial Sepsis Screen: Does the patient meet any 2 criteria? No. Patient's initial sepsis screen is negative. Does the patient have a suspected source of infection? No. Patient's initial sepsis screen is negative. Risk Assessment: Do you want to hurt yourself or someone else? Patient reports no desire to harm self or others. Onset of symptoms was May 16, 2022. 05:50 Acuity: ZHEN 3 as6 05:50 Method Of Arrival: Ambulatory as6 Historical: - Allergies: 05:49 No Known Allergies; as6 - PMHx: 05:49 Anxiety; Chronic Abdominal Pain; Hypertensive disorder; Hypothyroidism; low NA; NIDDM; as6 - PSHx: 05:49 Thyroidectomy; as6 - Immunization history:: Client reports receiving the 2nd dose of the Covid vaccine. - Social history:: Smoking status: Patient reports the use of cigarette tobacco products, smokes one pack cigarettes per day. - Family history:: not pertinent. Screenin:52 [facility] ED Fall Risk Assessment (Adult) Score/Fall Risk Level 0 - 2 = Low Risk. Abuse as6 screen: Denies threats or abuse. Denies injuries from another. Nutritional screening: No deficits noted. Tuberculosis screening: No symptoms or risk factors identified. Assessment: 05:45 General: Appears uncomfortable, Behavior is cooperative, restless. Pain: Complains of as6 pain in abdomen. 05:45 Pain: Noted to be moaning, restless. Neuro: Level of Consciousness is awake, alert, as6 obeys commands, Oriented to person, place, time, situation. Respiratory: Respiratory effort is even, unlabored. GI: Reports lower abdominal pain, upper abdominal pain, nausea. 06:49 General: discharge pending fluid completion . as6 07:25 Reassessment: Patient appears in no apparent distress at this time. No changes from vg1 previously documented assessment. Patient and/or family updated on plan of care and expected duration. Pain level reassessed. Patient is alert, oriented x 3, equal unlabored respirations, skin warm/dry/pink. Vital Signs: 05:50 BP 150 / 69; Pulse 87; Resp 18 S; Temp 97.6(O); Pulse Ox 99% on R/A; Weight 70.31 kg as6 (R); Height 5 ft. 5 in. (R); Pain 9/10; 06:41 BP 171 / 78; Pulse 85; Resp 18 S; Pulse Ox 100% on R/A; as6 05:50 Body Mass Index 25.79 (70.31 kg, 165.1 cm) as6 05:50 Pain Scale: Adult as6 ED Course: 05:40 Patient arrived in ED. es 05:42 Antony Mccallum, RN is Primary Nurse. as6 05:49 Arm band placed on. as6 05:50 Missed attempt(s): 20 gauge in right antecubital area. ha1 05:52 Triage completed. as6 05:52 Bed in low position. Call light in reach. Side rails up X 1. pt refusing gown at this as6 time. 06:00 Inserted saline lock: 22 gauge in left antecubital area, using aseptic technique. ha1 06:06 Diego Ramirez MD is Attending Physician. hannah 06:14 CBC with Diff Sent. ha1 06:14 CMP Sent. ha1 06:14 Lipase Sent. ha1 06:46 Nataliia Flores MD is Referral Physician. hannah 06:50 No provider procedures requiring assistance completed. as6 07:26 IV discontinued, intact, bleeding controlled, No redness/swelling at site. Pressure vg1 dressing applied. Administered Medications: 06:07 Drug: NS 0.9% IV 1000 ml Route: IV; Rate: 1 bolus; Site: left antecubital; ha1 07:25 Follow up: IV Status: Completed infusion; IV Intake: 1000ml vg1 06:10 Drug: Famotidine IVP 10 mg Route: IVP; Site: left antecubital; ha1 06:49 Follow up: Response: No adverse reaction as6 06:13 Drug: morphine IVP or IV 4 mg Route: IVP; Infused Over: 4 mins; Site: left antecubital; ha1 06:49 Follow up: Response: No adverse reaction as6 06:15 Drug: Ondansetron IVP 4 mg Route: IVP; Site: left antecubital; ha1 06:42 Follow up: Response: No adverse reaction; Nausea unchanged ha1 06:50 Follow up: Response: No adverse reaction as6 06:45 Drug: Promethazine IM 25 mg Route: IM; Site: right deltoid; as6 06:49 Follow up: Response: No adverse reaction as6 Medication: :26 VIS not applicable for this client. as6 Intake: 07:25 IV: 1000ml; Total: 1000ml. vg1 Outcome: 06:47 Discharge ordered by . [facility] 07: Discharged to home ambulatory, with family. vg1 07:26 Condition: good 07:26 Discharge instructions given to patient, Instructed on discharge instructions, follow up and referral plans. medication usage, Demonstrated understanding of instructions, follow-up care, medications, Prescriptions given X 3. 07:26 Patient left the ED. vg1 Signatures: Diego Ramirez MD MD cha Salyer, Edna es Garcia, Victoria RN RN vg1 Antony Mccallum RN RN as6 Christal Flores, CATY RN 1 Corrections: (The following items were deleted from the chart) 07: 06:51 IV discontinued, intact, bleeding controlled, No redness/swelling at site. vg1 Pressure dressing applied, as6 06:50 Condition: stable as6 vg1 07: 06:50 Discharged to home ambulatory, as6 vg1 : 06:50 Discharge instructions given to patient, Instructed on discharge instructions, vg1 follow up and referral plans. medication usage, Demonstrated understanding of instructions, follow-up care, medications, Prescriptions given X 3, as6
== END 2022-05-16 07:26 | disposition home or self-care (01) ==
LOC: ER 05:37
DX: R10.816 Epigastric abdominal tenderness (principal); E87.1 Hypo-osmolality and hyponatremia; R11.10 Vomiting, unspecified; F17.210 Nicotine dependence, cigarettes, uncomplicated
CPT/HCPCS: 96361; 85025; 36415; 83690; 80053; 96375; 96372; 96374; 99284; J2550; J2405; J7030 ×2

== ENCOUNTER 2022-05-17 11:56 | Emergency (ER) | payer OTHER ==
--- OUTSIDE RECORDS SUMMARY | 2022-05-17 12:09 | XMS REPORT | Continuity of Care Document ---
:1960 Author Organization [facility] t Address [address] [place] [address] [place] [id number] Care Team Providers Name Role Phone [facility]pless Primary Care Physician MATT SIMPSON Attending Clinician Unavailable MATT SIMPSON Attending Clinician Unavailable Doctor Unassigned, [place] Attending Clinician Unavailable WALLY KRISHNAMURTHY Attending Clinician Unavailable Natacha Brewster Attending Clinician Payers Payer Name Policy Type Policy Number Effective Date Expiration Date Sarina castelan [facility] [id number] 2017 00:00:00 PLUS Problems This patient has [...] ers OPHEN INGREDI 07-27 ity of 00:00: [place] [facility] Propensi Inactiv Reductas [...] alcohol (finding) Sex Assigned At [birth year] [facility] 00:00:00 00:00:00 [facility] Smoking Status Start Date Stop Date Source Current every day smoker 2016-05-01 00:00:00 [facility] Medications Ordered Filled Start [...] anjelica 59 Center OXcarbazepi 2017-0 Yes 600mg Q.[id number] Take [address] ne 2-23 [id number] [facility] (TR[facility]) 10:23: 3D mouth 3 Med ical 600 MG 59 (three) Center tablet times daily. PARoxetine 2017-0 Yes 40mg QD Take [address] (PAXIL) 40 2-23 [facility] tablet 10:23: nightly. [address] 2017-0 Yes 600mg Q.55531181 Take [address] ne 2-23 [id number] [facility] (TRILEPTAL) 10:23: 3D mouth 3 Med ical 600 MG 59 (three) Center tablet times daily. PARoxetine 2017-0 Yes 40mg QD Take [address] (PAXIL) 40 2-23 [facility] tablet 10:23: nightly. [address] 2017-0 Yes 600mg Q.23027429 Take [address] ne 2-23 [id number] [facility] (TRILEPTAL) 10:23: 3D mouth 3 Med ical 600 MG 59 (three) Center tablet times daily. PARoxetine 2017-0 Yes 40mg QD Take [address] (PAXIL) 40 2-23 [facility] tablet 10:23: nightly. [address] 2017-0 Yes 600mg Q.36731515 Take [address] ne 2-23 [id number] [facility] (TRILEPTAL) 10:23: 3D mouth 3 Med ical 600 MG 59 (three) Center tablet times daily. PARoxetine 2017-0 Yes 40mg QD Take [address] (PAXIL) 40 2-23 [facility] tablet 10:23: nightly. [address] 2017-0 Yes 600mg Q.19008541 Take [address] ne 2-23 [id number] [facility] (TRILEPTAL) 10:23: 3D mouth 3 Med ical 600 MG 59 (three) Center tablet times daily. PARoxetine 2017-0 Yes 40mg QD Take [address] (PAXIL) 40 2-23 [facility] tablet 10:23: nightly. [address] 2017-0 Yes 600mg Q.17157670 Take [address] ne 2-23 [id number] [facility] (TRILEPTAL) 10:23: 3D mouth 3 Med ical 600 MG 59 (three) Center tablet times daily. PARoxetine 2017-0 Yes 40mg QD Take [address] (PAXIL) 40 2-23 [facility] tablet 10:23: nightly. [address] 2017-0 Yes 600mg Q.58147171 Take [address] ne 2-23 [id number] [facility] (TRILEPTAL) 10:23: 3D mouth 3 Med ical 600 MG 59 (three) Center tablet times daily. PARoxetine 2017-0 Yes 40mg QD Take [address] (PAXIL) 40 2-23 [facility] tablet 10:23: nightly. [address] 2017-0 Yes 600mg Q.72320291 Take [address] ne 2-23 [id number] [facility] (TRILEPTAL) 10:23: 3D mouth 3 Med ical 600 MG 59 (three) Center tablet times daily. PARoxetine 2017-0 Yes 40mg QD Take [address] (PAXIL) 40 2-23 [facility] tablet 10:23: nightly. [address] 2017-0 Yes 600mg Q.19667237 Take [address] ne 2-23 [id number] [facility] (TRILEPTAL) 10:23: 3D mouth 3 Med ical 600 MG 59 (three) Center tablet times daily. PARoxetine 2017-0 Yes 40mg QD Take [address] (PAXIL) 40 2-23 by [facility] tablet 10:23: nightly. [address] OXcarbazepi 2017-0 Yes 600mg Q.39023577 Take [address] ne 2-23 [id number] [facility] (TRILEPTAL) 10:23: 3D mouth 3 Med ical 600 MG 59 (three) Center tablet times daily. PARoxetine 2017-0 Yes 40mg QD Take [address] (PAXIL) 40 2-23 by [facility] tablet 10:23: nightly. [address] OXcarbazepi 2017-0 Yes 600mg Q.69148610 Take [address] ne 2-23 [id number] [facility] (TRILEPTAL) 10:23: 3D mouth 3 Med ical 600 MG 59 (three) Center tablet times daily. PARoxetine 2017-0 Yes 40mg QD Take [address] (PAXIL) 40 2-23 by [facility] tablet 10:23: nightly. [facility] anjelica [address] [place] OXcarbazepi 2017-0 Yes 600mg Q.84112620 Take [address] ne 2-23 [id number] [facility] (TRILEPTAL) 10:23: 3D mouth 3 Med ical 600 MG 59 (three) Center tablet times daily. PARoxetine 2017-0 Yes 40mg QD Take [address] (PAXIL) 40 2-23 by [facility] MG tablet 10:23: nightly. [facility] anjelica [address] [place] OXcarbazepi 2017-0 Yes 600mg Q.42753640 Take [address] ne 2-23 [id number] mg [facility] (TRILEPTAL) 10:23: 3D mouth 3 Med ical 600 MG 59 (three) Center tablet times daily. OXcarbazepi 2017-0 Yes 600mg Q.58127372 Take [address] ne 2-23 [id number] [facility] (TRILEPTAL) 10:23: 3D mouth 3 Med ical 600 MG 59 (three) Center tablet times daily. PARoxetine 2017-0 Yes 40mg QD Take [address] (PAXIL) 40 2-23 [facility] tablet 10:23: nightly. [facility] anjelica [address] [place] OXcarbazepi 2017-0 Yes 600mg Q.29321631 Take [address] ne 2-23 [id number] mg by [facility] (TRILEPTAL) 10:23: 3D mouth 3 Med ical 600 MG 59 (three) Center tablet times daily. PARoxetine 2017-0 Yes 40mg QD Take [address] (PAXIL) 40 2-23 [facility] tablet 10:23: nightly. Medi anjelica 59 Center OXcarbazepi 2017-0 Yes 600mg Q.25832564 Take [address] ne 2-23 [id number] [facility] (TRILEPTAL) 10:23: 3D mouth 3 Med ical 600 MG 59 (three) Center tablet times daily. PARoxetine 2017-0 Yes 40mg QD Take [address] (PAXIL) 40 2-23 by [facility] tablet 10:23: nightly. [address] PARoxetine 2017-0 Yes 40mg QD Take [address] (PAXIL) 40 2-23 [facility] tablet 10:23: nightly. [address] OXcarbazepi 2017-0 Yes 600mg Q.48801155 Take [address] ne 2-23 [id number] [facility] (TRILEPTAL) 10:23: 3D mouth 3 Med ical 600 MG 59 (three) Center tablet times daily. PARoxetine 2017-0 Yes 40mg QD Take [address] (PAXIL) 40 2-23 by [facility] tablet 10:23: nightly. [address] OXcarbazepi 2017-0 Yes 600mg Q.19862393 Take [address] ne 2-23 [id number] [facility] (TRILEPTAL) 10:23: 3D mouth 3 Med ical 600 MG 59 (three) Center tablet times daily. PARoxetine 2017-0 Yes 40mg QD Take [address] (PAXIL) 40 2-23 by [facility] tablet 10:23: nightly. [address] OXcarbazepi 2017-0 Yes 600mg Q.31941108 Take [address] ne 2-23 [id number] [facility] (TRILEPTAL) 10:23: 3D mouth 3 Med ical 600 MG 59 (three) Center tablet times daily. PARoxetine 2017-0 Yes 40mg QD Take [address] (PAXIL) 40 2-23 by [facility] tablet 10:23: nightly. [address] OXcarbazepi 2017-0 Yes 600mg Q.51627481 Take [address] ne 2-23 [id number] [facility] (TRILEPTAL) 10:23: 3D mouth 3 Med ical 600 MG 59 (three) Center tablet times daily. PARoxetine 2017-0 Yes 40mg QD Take [address] (PAXIL) 40 2-23 by [facility] tablet 10:23: nightly. [address] OXcarbazepi 2017-0 Yes 600mg Q.05746327 Take [address] ne 2-23 [id number] mg [facility] (TRILEPTAL) 10:23: 3D mouth 3 Med ical 600 MG 59 (three) Center tablet times daily. PARoxetine 2017-0 Yes 40mg QD Take [address] (PAXIL) 40 2-23 by [facility] tablet 10:23: nightly. [address] OXcarbazepi 2017-0 Yes 600mg Q.41801834 Take [address] ne 2-23 [id number] mg [facility] (TRILEPTAL) 10:23: 3D mouth 3 Med ical 600 MG 59 (three) Center tablet times daily. PARoxetine 2017-0 Yes 40mg QD Take [address] (PAXIL) 40 2-23 by [facility] tablet 10:23: nightly. [address] OXcarbazepi 2017-0 Yes 600mg Q.28503825 Take [address] ne 2-23 [id number] mg [facility] (TRILEPTAL) 10:23: 3D mouth 3 Med ical 600 MG 59 (three) Center tablet times daily. PARoxetine 2017-0 Yes 40mg QD Take [address] (PAXIL) 40 2-23 by [facility] tablet 10:23: nightly. [address] OXcarbazepi 2017-0 Yes 600mg Q.02361125 Take [address] ne 2-23 [id number] [facility] (TRILEPTAL) 10:23: 3D mouth 3 Med ical 600 MG 59 (three) Center tablet times daily. OXcarbazepi 2017-0 Yes 600mg Q.28225374 Take [address] ne 2-23 [id number] [facility] (TRILEPTAL) 10:23: 3D mouth 3 Med ical 600 MG 59 (three) Center tablet times daily. PARoxetine 2017-0 Yes 40mg QD Take [address] (PAXIL) 40 2-23 by [facility] tablet 10:23: nightly. [address] OXcarbazepi 2017-0 Yes 600mg Q.22264546 Take [address] ne 2-23 [id number] mg [facility] (TRILEPTAL) 10:23: 3D mouth 3 Med ical 600 MG 59 (three) Center tablet times daily. PARoxetine 2017-0 Yes 40mg QD Take [address] (PAXIL) 40 2-23 by [facility] tablet 10:23: nightly. [facility] [address] OXcarbazepi 2017-0 Yes 600mg Q.54521456 Take [address] ne 2-23 [id number] mg by [facility] (TRILEPTAL) 10:23: 3D mouth 3 Med ical 600 MG 59 (three) Center tablet times daily. PARoxetine 2017-0 Yes 40mg QD Take [address] (PAXIL) 40 2-23 by [facility] tablet 10:23: nightly. [address] LORazepam 2017-0 Yes 1mg Take 1 [...] Goal Plan of Care Note [code = 73512-3] Goal Plan of Care Note [code = 90312-1] Goal Plan of Care Note [code = 44314-9] Goal Plan of Care Note [code = 30362-6] Goal Plan of Care Note [code = 73598-9] Goal Plan of Care Note [code = 65034-8] Goal Plan of Care Note [code = 66767-7] Goal Plan of Care Note [code = 17973-2] Goal Plan of Care Note [code = 34597-5] Goal Plan of Care Note [code = 50088-6] Goal Plan of Care Note [code = 44064-1] Goal Plan of Care Note [code = 57642-4] Goal Plan of Care Note [code = 95173-5] Goal Plan of Care Note [code = 38086-2] Goal Plan of Care Note [code = 61769-2] Goal Plan of Care Note [code = 36661-0] Goal Plan of Care Note [code = 11104-6] Goal Plan of Care Note [code = 86707-1] Goal Plan of Care Note [code = 90940-7] Goal Plan of Care Note [code = 87386-9] Goal Plan of Care Note [code = 21117-5] Goal Plan of Care Note [code = 34303-7] Goal Plan of Care Note [code = 55790-5] Goal Plan of Care Note [code = 21924-1] Goal Plan of Care Note [code = 98533-5] Goal Plan of Care Note [code = 16537-3] Goal Plan of Care Note [code = 23402-1] Goal Plan of Care Note [code = 77187-3] Goal Plan of Care Note [code = 68467-3] Goal Plan of Care Note [code = 25431-2] Goal Plan of Care Note [code = 39481-0] Goal Plan of Care Note [code = 57872-9] Goal Plan of Care Note [code = 17187-6] Goal Plan of Care Note [code = 41645-4] Goal Plan of Care Note [code = 36245-0] Goal Plan of Care Note [code = 48399-2] Goal Plan of Care Note [code = 75039-9] Goal Plan of Care Note [code = 78165-6] Goal Plan of Care Note [code = 64035-3] Goal Plan of Care Note [code = 50339-9] Goal Plan of Care Note [code = 18912-8] Goal Plan of Care Note [code = 02670-6] Goal Plan of Care Note [code = 51536-2] Goal Plan of Care Note [code = 67601-9] Goal Plan of Care Note [code = 29541-5] Goal Plan of Care Note [code = 99947-2] Goal Plan of Care Note [code = 15328-9] Goal Plan of Care Note [code = 81940-9] Goal Plan of Care Note [code = 49934-1] Goal Plan of Care Note [code = 34977-8] Goal Plan of Care Note [code = 43033-0] Goal Plan of Care Note [code = 10046-5] Goal Plan of Care Note [code = 98773-6] Goal Plan of Care Note [code = 14087-8] Goal Plan of Care Note [code = 07118-5] Goal Plan of Care Note [code = 01954-7] Goal Plan of Care Note [code = 14084-4] Goal Plan of Care Note [code = 30634-5] Goal Plan of Care Note [code = 62328-3] Goal Plan of Care Note [code = 53633-0] Goal Plan of Care Note [code = 44576-6] Goal Plan of Care Note [code = 53801-2] Goal Plan of Care Note [code = 25980-5] Goal Plan of Care Note [code = 24932-8] Goal Plan of Care Note [code = 03441-7] Goal Plan of Care Note [code = 36375-1] Goal Plan of Care Note [code = 52725-9] Goal Plan of Care Note [code = 39271-2] Goal Plan of Care Note [code = 84832-0] Goal Plan of Care Note [code = 53649-5] Goal Plan of Care Note [code = 89624-7] Goal Plan of Care Note [code = 54016-4] Goal Plan of Care Note [code = 29475-0] Goal Plan of Care Note [code = 28907-7] Goal Plan of Care Note [code = 64450-3] Goal Plan of Care Note [code = 90564-2] Goal Plan of Care Note [code = 59207-2] Goal Plan of Care Note [code = 78093-1] Goal Plan of Care Note [code = 55654-7] Goal Plan of Care Note [code = 14289-0] Goal Plan of Care Note [code = 15754-3] Goal Plan of Care Note [code = 72876-1] Goal Plan of Care Note [code = 59888-7] Goal Plan of Care Note [code = 46478-7] Goal Plan of Care Note [code = 08018-2] Goal Plan of Care Note [code = 03118-1] Goal Plan of Care Note [code = 03393-6] Goal Plan of Care Note [code = 82879-5] Goal Plan of Care Note [code = 71267-1] Goal Plan of Care Note [code = 98084-2] Goal Plan of Care Note [code = 11935-0] Goal Plan of Care Note [code = 73020-2] Goal Plan of Care Note [code = 17792-6] Goal Plan of Care Note [code = 66466-9] Goal Plan of Care Note [code = 57633-8] Goal Plan of Care Note [code = 61659-9] Goal Plan of Care Note [code = 01325-2] Goal Plan of Care Note [code = 34573-7] Goal Plan of Care Note [code = 90513-1] Goal Plan of Care Note [code = 69455-4] Goal Plan of Care Note [code = 69900-5] Goal Plan of Care Note [code = 65405-0] Goal Plan of Care Note [code = 55977-3] Goal Plan of Care Note [code = 31078-2] Goal Plan of Care Note [code = 36975-4] Goal Plan of Care Note [code = 64890-1] Goal Plan of Care Note [code = 74978-5] Goal Plan of Care Note [code = 52632-6] Goal Plan of Care Note [code = 86537-1] Goal Plan of Care Note [code = 69799-6] Goal Plan of Care Note [code = 80697-3] Goal Plan of Care Note [code = 86924-6] Goal Plan of Care Note [code = 38777-1] Goal Plan of Care Note [code = 17991-4] Goal Plan of Care Note [code = 91843-4] Goal Plan of Care Note [code = 95652-4] Goal Plan of Care Note [code = 44497-4] Goal Plan of Care Note [code = 22228-7] Goal Plan of Care Note [code = 81022-4] Goal Plan of Care Note [code = 17620-9] Goal Plan of Care Note [code = 52462-7] Goal Plan of Care Note [code = 98950-4] Goal Plan of Care Note [code = 09932-7] Goal Plan of Care Note [code = 76412-6] Goal Plan of Care Note [code = 63818-1] Goal Plan of Care Note [code = 50508-9] Goal Plan of Care Note [code = 44332-1] Goal Plan of Care Note [code = 62636-7] Goal Plan of Care Note [code = 48300-2] Goal Plan of Care Note [code = 56693-7] Goal Plan of Care Note [code = 10985-9] Goal Plan of Care Note [code = 39416-8] Goal Plan of Care Note [code = 72597-1] Goal Plan of Care Note [code = 52300-0] Goal Plan of Care Note [code = 02314-2] Goal Plan of Care Note [code = 92316-1] Goal Plan of Care Note [code = 12793-0] Goal Plan of Care Note [code = 75031-9] Goal Plan of Care Note [code = 62449-3] Goal Plan of Care Note [code = 05323-3] Goal Plan of Care Note [code = 04376-0] Goal Plan of Care Note [code = 99643-2] Goal Plan of Care Note [code = 24106-6] Goal Plan of Care Note [code = 07747-7] Goal Plan of Care Note [code = 87639-0] Goal Plan of Care Note [code = 93538-0] Goal Plan of Care Note [code = 64435-3] Goal Plan of Care Note [code = 53499-4] Goal Plan of Care Note [code = 05633-1] Goal Plan of Care Note [code = 47690-8] Goal Plan of Care Note [code = 31590-5] Goal Plan of Care Note [code = 88957-8] Goal Plan of Care Note [code = 83603-0] Goal Plan of Care Note [code = 07119-6] Goal Plan of Care Note [code = 23489-7] Goal Plan of Care Note [code = 68801-9] Goal Plan of Care Note [code = 73614-1] Goal Plan of Care Note [code = 47332-8] Goal Plan of Care Note [code = 29583-9] Goal Plan of Care Note [code = 64032-5] Goal Plan of Care Note [code = 71023-4] Goal Plan of Care Note [code = 47497-6] Goal Plan of Care Note [code = 94259-1] Goal Plan of Care Note [code = 79336-4] Goal Plan of Care Note [code = 53764-8] Goal Plan of Care Note [code = 05165-2] Goal Plan of Care Note [code = 11029-7] Goal Plan of Care Note [code = 06367-4] Goal Plan of Care Note [code = 80183-7] Goal Plan of Care Note [code = 09076-7] Goal Plan of Care Note [code = 57007-3] Goal Plan of Care Note [code = 91638-4] Goal Plan of Care Note [code = 24400-9] Goal Plan of Care Note [code = 30255-9] Goal Plan of Care Note [code = 87049-6] Goal Plan of Care Note [code = 11558-3] Goal Plan of Care Note [code = 75276-0] Goal Plan of Care Note [code = 00316-7] Goal Plan of Care Note [code = 50916-7] Goal Plan of Care Note [code = 38533-6] Goal Plan of Care Note [code = 10991-9] Goal Plan of Care Note [code = 42265-2] Goal Plan of Care Note [code = 44733-5] Goal Plan of Care Note [code = 08651-2] Goal Plan of Care Note [code = 64213-6] Goal Plan of Care Note [code = 98504-2] Goal Plan of Care Note [code = 78803-7] Goal Plan of Care Note [code = 14545-5] Goal Plan of Care Note [code = 43528-3] Goal Plan of Care Note [code = 05541-7] Goal Plan of Care Note [code = 23489-5] Goal Plan of Care Note [code = 54790-0] Goal Plan of Care Note [code = 49010-7] Goal Plan of Care Note [code = 60272-8] Goal Plan of Care Note [code = 37253-6] Goal Plan of Care Note [code = 88194-6] Goal Plan of Care Note [code = 65426-6] Goal Plan of Care Note [code = 45393-1] Goal Plan of Care Note [code = 44796-2] Goal Plan of Care Note [code = 02593-7] Goal Plan of Care Note [code = 60965-6] Goal Plan of Care Note [code = 79071-8] Goal Plan of Care Note [code = 10491-4] Goal Plan of Care Note [code = 61741-2] Goal Plan of Care Note [code = 90203-3] Goal Plan of Care Note [code = 82113-2] Goal Plan of Care Note [code = 07980-1] Goal Plan of Care Note [code = 94955-8] Encounters Start End Encounter Admission Attending Care Care Encounter Source Date/Time Date/Time Type Type Clinicians Facility Department ID 2021-06-01 Outpatient COUNT INCLUDES [facility] [id number] [place] 01:36:29 [id number] [facility] 2022-02-11 2022-02-11 Outpatient SFA SFA [id number] 022 Cristian 09:04:48 09:04:48 1206 F Jerman 2022-02-10 2022-02-10 Outpatient SFA SFA [id number] Cristian 09:29:34 09:29:34 1205 F Jerman 2022-02-10 2022-02-10 Outpatient [id number] [id number] 00:00:00 00:00:00 Visit 4089-4cab 089-4cab-9 -3sv2-u4p bf5-h5u594 617kzic38 bafa93 2022-01-10 2022-01-10 Outpatient SFA SFA [id number] 022 Cristian 09:16:14 09:16:14 1104 F Jerman 2022-01-10 2022-01-10 Outpatient [id number]- [id number] accaa6-a 00:00:00 00:00:00 Visit aca9-4c83 ca9-4c83-a -t0yj-bl8 7eb-bc13f3 3g0g506l8 f032f9 2021-12-19 2021-12-19 Outpatient LYDIA SFA [id number] 022 Cristian 16:11:31 16:11:31 1013 F Jerman 2021-12-19 2021-12-19 Outpatient [id number] 00:00:00 00:00:00 Visit u226-696r 770-441f-a -adae-62b amelia-62bace aiucx88rc fd81af 2021-09-17 2021-09-17 Outpatient phi5oapr- [id number] j9levg-7 00:00:00 00:00:00 Visit 935a-4f50 35a-4f50-b -g01f-l4m 77d-c2ba85 [id number] 1264a6 2020-08-03 2020-08-03 Outpatient MATT VÁSQUEZ [facility] [id number] [facility] 10:00:00 10:00:00 MATT SIMPSON [facility] 2020-07-25 2020-07-25 Orders Doctor ABE [id number] 00:00:00 00:00:00 Only Unassigned, BK 350.1.13.10 [place] [facility] 4.2.7.2.686 [id number] 2019-09-26 2019-09-26 Outpatient Bertin KRISHNAMURTHY [facility] [id number] [facility] 16:00:00 16:00:00 WALLY [facility] 2018-10-21 2018-10-21 [facility] [id number] 00:00:00 00:00:00 Natacha Nguyen 350.1.13.10 Ade 4.2.7.2.686 Professio [id number] [facility] Results Test Description Test Time Test Comments Results Result Comments Source [facility] 2021-06-27 05:15:49 Test Item Value Reference Range Interpretation Comme nts TSH, THIRD GENERATION (test code = 2821) 2.080 UIU/ML 0.400-4.100 HEMOGLOBIN [id number] 03:46:00 Test Item Value Reference Range Interpretation Comments HEMOGLOBIN A1c (test 6.6 % 4.2-5.6 [facility] code = 46372) ASSOCIATION IDELINES FOR HGB A1C: PREDIABETES/INC REASED [...] UNLESS OTHERWIS E INDICATED, ALL TESTING PER [facility] ATCLINICAL PATH [facility] [place] [address] LABORATORY DIRE CTOR: DIANA RUSS M.D. CLIA NUMBER [id number] [facility] [place]. [id number] LIPID [id number] 02:59:52 Test Item Value Reference Range Interpretation [...] , SEE CLIENT ANNOUNCE MENT AT [email or web address] RISK RATIO LDL/HDL 4.02 RATIO <3.22 H (test code = 2238) [id number] 00:00:00 Test Item Value Reference Range Interpretation Comments TSH, THIRD GENERATION (test code 2.080 UIU/ML = 2821) [id number] 00:00:00 Test Item Value Reference Range Interpretation Comments TSH, THIRD GENERATION (test code 2.080 UIU/ML = 2821) [id number] 00:00:00 Test Item Value Reference Range Interpretation Comments TSH, THIRD GENERATION (test code 2.080 UIU/ML = 2821) LIPID [id number] 00:00:00 Test Item Value Reference Range Interpretation Comments CHOLESTEROL (test code = 2210) 292 MG/DL TRIGLYCERIDES (test code = 2232) 184 MG/DL HDL CHOLESTEROL (test code = 2220) 51 MG/DL CALC LDL CHOL (test code = 2237) 205 MG/DL RISK RATIO LDL/HDL (test code = 4.02 RATIO 2238) LIPID [id number] 00:00:00 Test Item Value Reference Range Interpretation Comments CHOLESTEROL (test code = 2210) 292 MG/DL TRIGLYCERIDES (test code = 2232) 184 MG/DL HDL CHOLESTEROL (test code = 2220) 51 MG/DL CALC LDL CHOL (test code = 2237) 205 MG/DL RISK RATIO LDL/HDL (test code = 4.02 RATIO 2238) HEMOGLOBIN [id number] 00:00:00 Test Item Value Reference Range Interpretation Comments HEMOGLOBIN A1c (test code = 75457) 6.6 % HEMOGLOBIN [id number] 00:00:00 Test Item Value Reference Range Interpretation Comments HEMOGLOBIN A1c (test code = 99354) 6.6 % HEMOGLOBIN [id number] 00:00:00 Test Item Value Reference Range Interpretation Comments HEMOGLOBIN A1c (test code = 70130) 6.6 % [id number] 00:00:00 Test Item Value Reference Range Interpretation Comments TSH, THIRD GENERATION (test code 2.080 UIU/ML = 2821) [id number] 00:00:00 Test Item Value Reference Range Interpretation Comments TSH, THIRD GENERATION (test code 2.080 UIU/ML = 2821) [id number] 00:00:00 Test Item Value Reference Range Interpretation Comments TSH, THIRD GENERATION (test code 2.080 UIU/ML = 2821) LIPID [id number] 00:00:00 Test Item Value Reference Range Interpretation Comments CHOLESTEROL (test code = 2210) 292 MG/DL TRIGLYCERIDES (test code = 2232) 184 MG/DL HDL CHOLESTEROL (test code = 2220) 51 MG/DL CALC LDL CHOL (test code = 2237) 205 MG/DL RISK RATIO LDL/HDL (test code = 4.02 RATIO 2238) LIPID [id number] 00:00:00 Test Item Value Reference Range Interpretation Comments CHOLESTEROL (test code = 2210) 292 MG/DL TRIGLYCERIDES (test code = 2232) 184 MG/DL HDL CHOLESTEROL (test code = 2220) 51 MG/DL CALC LDL CHOL (test code = 2237) 205 MG/DL RISK RATIO LDL/HDL (test code = 4.02 RATIO 2238) HEMOGLOBIN [id number] 00:00:00 Test Item Value Reference Range Interpretation Comments HEMOGLOBIN A1c (test code = 87400) 6.6 % HEMOGLOBIN [id number] 00:00:00 Test Item Value Reference Range Interpretation Comments HEMOGLOBIN A1c (test code = 54122) 6.6 % HEMOGLOBIN [id number] 00:00:00 Test Item Value Reference Range Interpretation Comments HEMOGLOBIN A1c (test code = 99148) 6.6 % [id number] 00:00:00 Test Item Value Reference Range Interpretation Comments TSH, THIRD GENERATION (test code 2.080 UIU/ML = 2821) [id number] 00:00:00 Test Item Value Reference Range Interpretation Comments TSH, THIRD GENERATION (test code 2.080 UIU/ML = 2821) LIPID [id number] 00:00:00 Test Item Value Reference Range Interpretation Comments CHOLESTEROL (test code = 2210) 292 MG/DL TRIGLYCERIDES (test code = 2232) 184 MG/DL HDL CHOLESTEROL (test code = 2220) 51 MG/DL CALC LDL CHOL (test code = 2237) 205 MG/DL RISK RATIO LDL/HDL (test code = 4.02 RATIO 2238) HEMOGLOBIN [id number] 00:00:00 Test Item Value Reference Range Interpretation Comments HEMOGLOBIN A1c (test code = 49430) 6.6 % HEMOGLOBIN [id number] 00:00:00 Test Item Value Reference Range Interpretation Comments HEMOGLOBIN A1c (test code = 86848) 6.6 % [id number] 00:00:00 Test Item Value Reference Range Interpretation Comments TSH, THIRD GENERATION (test code 2.080 UIU/ML = 2821) [id number] 00:00:00 Test Item Value Reference Range Interpretation Comments TSH, THIRD GENERATION (test code 2.080 UIU/ML = 2821) [id number] 00:00:00 Test Item Value Reference Range Interpretation Comments TSH, THIRD GENERATION (test code 2.080 UIU/ML = 2821) LIPID [id number] 00:00:00 Test Item Value Reference Range Interpretation Comments CHOLESTEROL (test code = 2210) 292 MG/DL TRIGLYCERIDES (test code = 2232) 184 MG/DL HDL CHOLESTEROL (test code = 2220) 51 MG/DL CALC LDL CHOL (test code = 2237) 205 MG/DL RISK RATIO LDL/HDL (test code = 4.02 RATIO 2238) LIPID [id number] 00:00:00 Test Item Value Reference Range Interpretation Comments CHOLESTEROL (test code = 2210) 292 MG/DL TRIGLYCERIDES (test code = 2232) 184 MG/DL HDL CHOLESTEROL (test code = 2220) 51 MG/DL CALC LDL CHOL (test code = 2237) 205 MG/DL RISK RATIO LDL/HDL (test code = 4.02 RATIO 2238) HEMOGLOBIN [id number] 00:00:00 Test Item Value Reference Range Interpretation Comments HEMOGLOBIN A1c (test code = 71894) 6.6 % HEMOGLOBIN [id number] 00:00:00 Test Item Value Reference Range Interpretation Comments HEMOGLOBIN A1c (test code = 59304) 6.6 % HEMOGLOBIN [id number] 00:00:00 Test Item Value Reference Range Interpretation Comments HEMOGLOBIN A1c (test code = 62900) 6.6 % HEMOGLOBIN [id number] 00:00:00 Test Item Value Reference Range Interpretation Comments HEMOGLOBIN A1c (test code = 99507) 6.8 % HEMOGLOBIN [id number] 00:00:00 Test Item Value Reference Range Interpretation Comments HEMOGLOBIN A1c (test code = 94503) 6.8 % HEMOGLOBIN [id number] 00:00:00 Test Item Value Reference Range Interpretation Comments HEMOGLOBIN A1c (test code = 68788) 6.8 % LIPID [id number] 00:00:00 Test Item Value Reference Range Interpretation Comments CHOLESTEROL (test code = 2210) 303 MG/DL TRIGLYCERIDES (test code = 2232) 191 MG/DL HDL CHOLESTEROL (test code = 2220) 61 MG/DL CALC LDL CHOL (test code = 2237) 205 MG/DL RISK RATIO LDL/HDL (test code = 3.36 RATIO 2238) LIPID [id number] 00:00:00 Test Item Value Reference Range Interpretation Comments CHOLESTEROL (test code = 2210) 303 MG/DL TRIGLYCERIDES (test code = 2232) 191 MG/DL HDL CHOLESTEROL (test code = 2220) 61 MG/DL CALC LDL CHOL (test code = 2237) 205 MG/DL RISK RATIO LDL/HDL (test code = 3.36 RATIO 2238) [id number] 00:00:00 Test Item Value Reference Range Interpretation Comments TSH, THIRD GENERATION (test code 0.769 UIU/ML = 2821) [id number] 00:00:00 Test Item Value Reference Range Interpretation Comments TSH, THIRD GENERATION (test code 0.769 UIU/ML = 2821) [id number] 00:00:00 Test Item Value Reference Range Interpretation Comments TSH, THIRD GENERATION (test code 0.769 UIU/ML = 2821) COMPREHENSIVE METABOLIC [id number] 00:00:00 Test Item Value Reference Range Interpretation Comments GLUCOSE (test code = 2217) 131 MG/DL BUN (test code = 2208) 13 MG/DL CREATININE (test code = 2214) 0.65 MG/DL eGFR AMER. (test code 113 ML/MIN/1.73 = 35675) eGFR NON- AMER. (test 97 ML/MIN/1.73 code = 78784) CALC BUN/CREAT (test code = 20 RATIO [...] code = 2219) 23 U/L COMPREHENSIVE METABOLIC [id number] 00:00:00 Test Item Value Reference Range Interpretation Comments GLUCOSE (test code = 2217) 131 MG/DL BUN (test code = 2208) 13 MG/DL CREATININE (test code = 2214) 0.65 MG/DL eGFR AMER. (test code 113 ML/MIN/1.73 = 35340) eGFR NON- AMER. (test 97 ML/MIN/1.73 code = 70203) CALC BUN/CREAT (test code = 20 RATIO [...] (test code = 2219) 23 U/L HEMOGLOBIN [id number] 00:00:00 Test Item Value Reference Range Interpretation Comments HEMOGLOBIN A1c (test code = 98510) 6.8 % HEMOGLOBIN [id number] 00:00:00 Test Item Value Reference Range Interpretation Comments HEMOGLOBIN A1c (test code = 41676) 6.8 % HEMOGLOBIN [id number] 00:00:00 Test Item Value Reference Range Interpretation Comments HEMOGLOBIN A1c (test code = 93206) 6.8 % LIPID [id number] 00:00:00 Test Item Value Reference Range Interpretation Comments CHOLESTEROL (test code = 2210) 303 MG/DL TRIGLYCERIDES (test code = 2232) 191 MG/DL HDL CHOLESTEROL (test code = 2220) 61 MG/DL CALC LDL CHOL (test code = 2237) 205 MG/DL RISK RATIO LDL/HDL (test code = 3.36 RATIO 2238) LIPID [id number] 00:00:00 Test Item Value Reference Range Interpretation Comments CHOLESTEROL (test code = 2210) 303 MG/DL TRIGLYCERIDES (test code = 2232) 191 MG/DL HDL CHOLESTEROL (test code = 2220) 61 MG/DL CALC LDL CHOL (test code = 2237) 205 MG/DL RISK RATIO LDL/HDL (test code = 3.36 RATIO 2238) [id number] 00:00:00 Test Item Value Reference Range Interpretation Comments TSH, THIRD GENERATION (test code 0.769 UIU/ML = 2821) [id number] 00:00:00 Test Item Value Reference Range Interpretation Comments TSH, THIRD GENERATION (test code 0.769 UIU/ML = 2821) [id number] 00:00:00 Test Item Value Reference Range Interpretation Comments TSH, THIRD GENERATION (test code 0.769 UIU/ML = 2821) COMPREHENSIVE METABOLIC [id number] 00:00:00 Test Item Value Reference Range Interpretation Comments GLUCOSE (test code = 2217) 131 MG/DL BUN (test code = 2208) 13 MG/DL CREATININE (test code = 2214) 0.65 MG/DL eGFR AMER. (test code 113 ML/MIN/1.73 = 38251) eGFR NON- AMER. (test 97 ML/MIN/1.73 code = 60163) CALC BUN/CREAT (test code = 20 RATIO [...] code = 2219) 23 U/L COMPREHENSIVE METABOLIC [id number] 00:00:00 Test Item Value Reference Range Interpretation Comments GLUCOSE (test code = 2217) 131 MG/DL BUN (test code = 2208) 13 MG/DL CREATININE (test code = 2214) 0.65 MG/DL eGFR AMER. (test code 113 ML/MIN/1.73 = 56902) eGFR NON- AMER. (test 97 ML/MIN/1.73 code = 79838) CALC BUN/CREAT (test code = 20 RATIO [...] (test code = 2219) 23 U/L HEMOGLOBIN [id number] 00:00:00 Test Item Value Reference Range Interpretation Comments HEMOGLOBIN A1c (test code = 81335) 6.8 % HEMOGLOBIN [id number] 00:00:00 Test Item Value Reference Range Interpretation Comments HEMOGLOBIN A1c (test code = 62044) 6.8 % LIPID [id number] 00:00:00 Test Item Value Reference Range Interpretation Comments CHOLESTEROL (test code = 2210) 303 MG/DL TRIGLYCERIDES (test code = 2232) 191 MG/DL HDL CHOLESTEROL (test code = 2220) 61 MG/DL CALC LDL CHOL (test code = 2237) 205 MG/DL RISK RATIO LDL/HDL (test code = 3.36 RATIO 2238) [id number] 00:00:00 Test Item Value Reference Range Interpretation Comments TSH, THIRD GENERATION (test code 0.769 UIU/ML = 2821) [id number] 00:00:00 Test Item Value Reference Range Interpretation Comments TSH, THIRD GENERATION (test code 0.769 UIU/ML = 2821) COMPREHENSIVE METABOLIC [id number] 00:00:00 Test Item Value Reference Range Interpretation Comments GLUCOSE (test code = 2217) 131 MG/DL BUN (test code = 2208) 13 MG/DL CREATININE (test code = 2214) 0.65 MG/DL eGFR AMER. (test code 113 ML/MIN/1.73 = 17270) eGFR NON- AMER. (test 97 ML/MIN/1.73 code = 02340) CALC BUN/CREAT (test code = 20 RATIO [...] (test code = 2219) 23 U/L HEMOGLOBIN [id number] 00:00:00 Test Item Value Reference Range Interpretation Comments HEMOGLOBIN A1c (test code = 13587) 6.8 % HEMOGLOBIN [id number] 00:00:00 Test Item Value Reference Range Interpretation Comments HEMOGLOBIN A1c (test code = 13545) 6.8 % HEMOGLOBIN [id number] 00:00:00 Test Item Value Reference Range Interpretation Comments HEMOGLOBIN A1c (test code = 04854) 6.8 % LIPID [id number] 00:00:00 Test Item Value Reference Range Interpretation Comments CHOLESTEROL (test code = 2210) 303 MG/DL TRIGLYCERIDES (test code = 2232) 191 MG/DL HDL CHOLESTEROL (test code = 2220) 61 MG/DL CALC LDL CHOL (test code = 2237) 205 MG/DL RISK RATIO LDL/HDL (test code = 3.36 RATIO 2238) LIPID [id number] 00:00:00 Test Item Value Reference Range Interpretation Comments CHOLESTEROL (test code = 2210) 303 MG/DL TRIGLYCERIDES (test code = 2232) 191 MG/DL HDL CHOLESTEROL (test code = 2220) 61 MG/DL CALC LDL CHOL (test code = 2237) 205 MG/DL RISK RATIO LDL/HDL (test code = 3.36 RATIO 2238) [id number] 00:00:00 Test Item Value Reference Range Interpretation Comments TSH, THIRD GENERATION (test code 0.769 UIU/ML = 2821) [id number] 00:00:00 Test Item Value Reference Range Interpretation Comments TSH, THIRD GENERATION (test code 0.769 UIU/ML = 2821) [id number] 00:00:00 Test Item Value Reference Range Interpretation Comments TSH, THIRD GENERATION (test code 0.769 UIU/ML = 2821) COMPREHENSIVE METABOLIC [id number] 00:00:00 Test Item Value Reference Range Interpretation Comments GLUCOSE (test code = 2217) 131 MG/DL BUN (test code = 2208) 13 MG/DL CREATININE (test code = 2214) 0.65 MG/DL eGFR AMER. (test code 113 ML/MIN/1.73 = 31438) eGFR NON- AMER. (test 97 ML/MIN/1.73 code = 54595) CALC BUN/CREAT (test code = 20 RATIO [...] code = 2219) 23 U/L COMPREHENSIVE METABOLIC [id number] 00:00:00 Test Item Value Reference Range Interpretation Comments GLUCOSE (test code = 2217) 131 MG/DL BUN (test code = 2208) 13 MG/DL CREATININE (test code = 2214) 0.65 MG/DL eGFR AMER. (test code 113 ML/MIN/1.73 = 58970) eGFR NON- AMER. (test 97 ML/MIN/1.73 code = 41899) CALC BUN/CREAT (test code = 20 RATIO [...] (test code = 2219) 23 U/L HEMOGLOBIN [id number] 00:00:00 Test Item Value Reference Range Interpretation Comments HEMOGLOBIN A1c (test code = 09753) 6.6 % HEMOGLOBIN [id number] 00:00:00 Test Item Value Reference Range Interpretation Comments HEMOGLOBIN A1c (test code = 01616) 6.6 % HEMOGLOBIN [id number] 00:00:00 Test Item Value Reference Range Interpretation Comments HEMOGLOBIN A1c (test code = 35234) 6.6 % LIPID [id number] 00:00:00 Test Item Value Reference Range Interpretation Comments CHOLESTEROL (test code = 2210) 261 MG/DL TRIGLYCERIDES (test code = 2232) 159 MG/DL HDL CHOLESTEROL (test code = 2220) 82 MG/DL CALC LDL CHOL (test code = 2237) 150 MG/DL RISK RATIO LDL/HDL (test code = 1.83 RATIO 2238) LIPID [id number] 00:00:00 Test Item Value Reference Range Interpretation Comments CHOLESTEROL (test code = 2210) 261 MG/DL TRIGLYCERIDES (test code = 2232) 159 MG/DL HDL CHOLESTEROL (test code = 2220) 82 MG/DL CALC LDL CHOL (test code = 2237) 150 MG/DL RISK RATIO LDL/HDL (test code = 1.83 RATIO 2238) COMPREHENSIVE METABOLIC [id number] 00:00:00 Test Item Value Reference Range Interpretation Comments GLUCOSE (test code = 2217) 144 MG/DL BUN (test code = 2208) 15 MG/DL CREATININE (test code = 2214) 0.85 MG/DL eGFR AMER. (test code 87 ML/MIN/1.73 = 02554) eGFR NON- AMER. (test 75 ML/MIN/1.73 code = 15769) CALC BUN/CREAT (test code = 18 RATIO [...] = <0.2 MG/DL 220) ALKALINE PHOSPHATASE (test 117 U/L code = 2204) AST (test code = 2218) 27 U/L ALT (test code = 2219) 50 U/L COMPREHENSIVE METABOLIC [id number] 00:00:00 Test Item Value Reference Range Interpretation Comments GLUCOSE (test code = 2217) 144 MG/DL BUN (test code = 2208) 15 MG/DL CREATININE (test code = 2214) 0.85 MG/DL eGFR AMER. (test code 87 ML/MIN/1.73 = 54707) eGFR NON- AMER. (test 75 ML/MIN/1.73 code = 85610) CALC BUN/CREAT (test code = 18 RATIO [...] code = 2203) AST (test code = 2217) 27 U/L ALT (test code = 2218) 50 U/L THYROID II PROFILE (T3U, T4, T7, TSH)2020-05-23 00:00:00 Test Item Value Reference Range Interpretation Comments T-UPTAKE (test code = 2816) 30.2 % THYROX. BIND. CAPAC. (test code 1.1 = 55314) T4 (THYROXINE) (test code = 4.3 UG/DL 2818) CORRECTED T4 (FTI) (test code = 3.9 UG/DL 2820) TSH, THIRD GENERATION (test 18.900 UIU/ML code = 2821) THYROID II PROFILE (T3U, T4, T7, TSH)2020-05-23 00:00:00 Test Item Value Reference Range Interpretation Comments T-UPTAKE (test code = 2816) 30.2 % THYROX. BIND. CAPAC. (test code 1.1 = 69113) T4 (THYROXINE) (test code = 4.3 UG/DL 281) CORRECTED T4 (FTI) (test code = 3.9 UG/DL 2820) TSH, THIRD GENERATION (test 18.900 UIU/ML code = 2821) HEMOGLOBIN [id number] 00:00:00 Test Item Value Reference Range Interpretation Comments HEMOGLOBIN A1c (test code = 15128) 6.6 % HEMOGLOBIN [id number] 00:00:00 Test Item Value Reference Range Interpretation Comments HEMOGLOBIN A1c (test code = 79947) 6.6 % HEMOGLOBIN [id number] 00:00:00 Test Item Value Reference Range Interpretation Comments HEMOGLOBIN A1c (test code = 24985) 6.6 % LIPID [id number] 00:00:00 Test Item Value Reference Range Interpretation Comments CHOLESTEROL (test code = 2210) 261 MG/DL TRIGLYCERIDES (test code = 2232) 159 MG/DL HDL CHOLESTEROL (test code = 2220) 82 MG/DL CALC LDL CHOL (test code = 2237) 150 MG/DL RISK RATIO LDL/HDL (test code = 1.83 RATIO 2238) LIPID [id number] 00:00:00 Test Item Value Reference Range Interpretation Comments CHOLESTEROL (test code = 2210) 261 MG/DL TRIGLYCERIDES (test code = 2232) 159 MG/DL HDL CHOLESTEROL (test code = 2220) 82 MG/DL CALC LDL CHOL (test code = 2237) 150 MG/DL RISK RATIO LDL/HDL (test code = 1.83 RATIO 2238) COMPREHENSIVE METABOLIC [id number] 00:00:00 Test Item Value Reference Range Interpretation Comments GLUCOSE (test code = 2217) 144 MG/DL BUN (test code = 2208) 15 MG/DL CREATININE (test code = 2214) 0.85 MG/DL eGFR AMER. (test code 87 ML/MIN/1.73 = 23599) eGFR NON- AMER. (test 75 ML/MIN/1.73 code = 05208) CALC BUN/CREAT (test code = 18 RATIO [...] code = 2219) 50 U/L COMPREHENSIVE METABOLIC [id number] 00:00:00 Test Item Value Reference Range Interpretation Comments GLUCOSE (test code = 2217) 144 MG/DL BUN (test code = 2208) 15 MG/DL CREATININE (test code = 2214) 0.85 MG/DL eGFR AMER. (test code 87 ML/MIN/1.73 = 20633) eGFR NON- AMER. (test 75 ML/MIN/1.73 code = 07966) CALC BUN/CREAT (test code = 18 RATIO [...] THYROX. BIND. CAPAC. (test code 1.1 = 44992) T4 (THYROXINE) (test code = 4.3 UG/DL 2819) CORRECTED T4 (FTI) (test code = 3.9 UG/DL 2820) TSH, THIRD GENERATION (test 18.900 UIU/ML code = 2821) THYROID II PROFILE (T3U, T4, T7, TSH)2020-05-23 00:00:00 Test Item Value Reference Range Interpretation Comments T-UPTAKE (test code = 2816) 30.2 % THYROX. BIND. CAPAC. (test code 1.1 = 65900) T4 (THYROXINE) (test code = 4.3 UG/DL 2819) CORRECTED T4 (FTI) (test code = 3.9 UG/DL 2820) TSH, THIRD GENERATION (test 18.900 UIU/ML code = 2821) HEMOGLOBIN [id number] 00:00:00 Test Item Value Reference Range Interpretation Comments HEMOGLOBIN A1c (test code = 29260) 6.6 % HEMOGLOBIN [id number] 00:00:00 Test Item Value Reference Range Interpretation Comments HEMOGLOBIN A1c (test code = 15496) 6.6 % LIPID [id number] 00:00:00 Test Item Value Reference Range Interpretation Comments CHOLESTEROL (test code = 2210) 261 MG/DL TRIGLYCERIDES (test code = 2232) 159 MG/DL HDL CHOLESTEROL (test code = 2220) 82 MG/DL CALC LDL CHOL (test code = 2237) 150 MG/DL RISK RATIO LDL/HDL (test code = 1.83 RATIO 2238) COMPREHENSIVE METABOLIC [id number] 00:00:00 Test Item Value Reference Range Interpretation Comments GLUCOSE (test code = 2217) 144 MG/DL BUN (test code = 2208) 15 MG/DL CREATININE (test code = 2214) 0.85 MG/DL eGFR AMER. (test code 87 ML/MIN/1.73 = 27010) eGFR NON- AMER. (test 75 ML/MIN/1.73 code = 51174) CALC BUN/CREAT (test code = 18 RATIO [...] Range Interpretation Comments T-UPTAKE (test code = 9467) 30.2 % THYROX. BIND. CAPAC. (test code 1.1 = 81217) T4 (THYROXINE) (test code = 4.3 UG/DL 2819) CORRECTED T4 (FTI) (test code = 3.9 UG/DL 2820) TSH, THIRD GENERATION (test 18.900 UIU/ML code = 2821) HEMOGLOBIN [id number] 00:00:00 Test Item Value Reference Range Interpretation Comments HEMOGLOBIN A1c (test code = 90026) 6.6 % HEMOGLOBIN [id number] 00:00:00 Test Item Value Reference Range Interpretation Comments HEMOGLOBIN A1c (test code = 18694) 6.6 % HEMOGLOBIN [id number] 00:00:00 Test Item Value Reference Range Interpretation Comments HEMOGLOBIN A1c (test code = 75160) 6.6 % LIPID [id number] 00:00:00 Test Item Value Reference Range Interpretation Comments CHOLESTEROL (test code = 2210) 261 MG/DL TRIGLYCERIDES (test code = 2232) 159 MG/DL HDL CHOLESTEROL (test code = 2220) 82 MG/DL CALC LDL CHOL (test code = 2237) 150 MG/DL RISK RATIO LDL/HDL (test code = 1.83 RATIO 2238) LIPID [id number] 00:00:00 Test Item Value Reference Range Interpretation Comments CHOLESTEROL (test code = 2210) 261 MG/DL TRIGLYCERIDES (test code = 2232) 159 MG/DL HDL CHOLESTEROL (test code = 2220) 82 MG/DL CALC LDL CHOL (test code = 2237) 150 MG/DL RISK RATIO LDL/HDL (test code = 1.83 RATIO 2238) COMPREHENSIVE METABOLIC [id number] 00:00:00 Test Item Value Reference Range Interpretation Comments GLUCOSE (test code = 2217) 144 MG/DL BUN (test code = 2208) 15 MG/DL CREATININE (test code = 2214) 0.85 MG/DL eGFR AMER. (test code 87 ML/MIN/1.73 = 89380) eGFR NON- AMER. (test 75 ML/MIN/1.73 code = 67357) CALC BUN/CREAT (test code = 18 RATIO [...] code = 2219) 50 U/L COMPREHENSIVE METABOLIC [id number] 00:00:00 Test Item Value Reference Range Interpretation Comments GLUCOSE (test code = 2217) 144 MG/DL BUN (test code = 2208) 15 MG/DL CREATININE (test code = 2214) 0.85 MG/DL eGFR AMER. (test code 87 ML/MIN/1.73 = 93095) eGFR NON- AMER. (test 75 ML/MIN/1.73 code = 21499) CALC BUN/CREAT (test code = 18 RATIO [...] THYROX. BIND. CAPAC. (test code 1.1 = 01791) T4 (THYROXINE) (test code = 4.3 UG/DL 2819) CORRECTED T4 (FTI) (test code = 3.9 UG/DL 2820) TSH, THIRD GENERATION (test 18.900 UIU/ML code = 2821) THYROID II PROFILE (T3U, T4, T7, TSH)2020-05-23 00:00:00 Test Item Value Reference Range Interpretation Comments T-UPTAKE (test code = 2817) 30.2 % THYROX. BIND. CAPAC. (test code 1.1 = 55339) T4 (THYROXINE) (test code = 4.3 UG/DL 2819) CORRECTED T4 (FTI) (test code = 3.9 UG/DL 2820) TSH, THIRD GENERATION (test 18.900 UIU/ML code = 2821) HEMOGLOBIN [id number] 00:00:00 Test Item Value Reference Range Interpretation Comments HEMOGLOBIN A1c (test code = 28918) 6.7 % HEMOGLOBIN [id number] 00:00:00 Test Item Value Reference Range Interpretation Comments HEMOGLOBIN A1c (test code = 05992) 6.7 % HEMOGLOBIN [id number] 00:00:00 Test Item Value Reference Range Interpretation Comments HEMOGLOBIN A1c (test code = 67090) 6.7 % LIPID [id number] 00:00:00 Test Item Value Reference Range Interpretation Comments CHOLESTEROL (test code = 2210) 267 MG/DL TRIGLYCERIDES (test code = 2232) 137 MG/DL HDL CHOLESTEROL (test code = 2220) 48 MG/DL CALC LDL CHOL (test code = 2237) 192 MG/DL RISK RATIO LDL/HDL (test code = 4.00 RATIO 2238) LIPID [id number] 00:00:00 Test Item Value Reference Range Interpretation Comments CHOLESTEROL (test code = 2210) 267 MG/DL TRIGLYCERIDES (test code = 2232) 137 MG/DL HDL CHOLESTEROL (test code = 2220) 48 MG/DL CALC LDL CHOL (test code = 2237) 192 MG/DL RISK RATIO LDL/HDL (test code = 4.00 RATIO 2238) COMPREHENSIVE METABOLIC [id number] 00:00:00 Test Item Value Reference Range Interpretation Comments GLUCOSE (test code = 2217) 155 MG/DL BUN (test code = 2208) 14 MG/DL CREATININE (test code = 2214) 0.52 MG/DL eGFR AMER. (test code 122 ML/MIN/1.73 = 76880) eGFR NON- AMER. (test 105 ML/MIN/1.73 code = 70812) CALC BUN/CREAT (test code = 27 RATIO [...] code = 2219) 27 U/L COMPREHENSIVE METABOLIC [id number] 00:00:00 Test Item Value Reference Range Interpretation Comments GLUCOSE (test code = 2217) 155 MG/DL BUN (test code = 2208) 14 MG/DL CREATININE (test code = 2214) 0.52 MG/DL eGFR AMER. (test code 122 ML/MIN/1.73 = 90777) eGFR NON- AMER. (test 105 ML/MIN/1.73 code = 20521) CALC BUN/CREAT (test code = 27 RATIO [...] THYROX. BIND. CAPAC. (test code 1.0 = 47388) T4 (THYROXINE) (test code = 4.7 UG/DL 2819) CORRECTED T4 (FTI) (test code = 4.7 UG/DL 2820) TSH, THIRD GENERATION (test code 0.201 UIU/ML = 2821) THYROID II PROFILE (T3U, T4, T7, TSH)2019 00:00:00 Test Item Value Reference Range Interpretation Comments T-UPTAKE (test code = 2817) 33.1 % THYROX. BIND. CAPAC. (test code 1.0 = 74904) T4 (THYROXINE) (test code = 4.7 UG/DL 2819) CORRECTED T4 (FTI) (test code = 4.7 UG/DL 2820) TSH, THIRD GENERATION (test code 0.201 UIU/ML = 2821) HEMOGLOBIN [id number] 00:00:00 Test Item Value Reference Range Interpretation Comments HEMOGLOBIN A1c (test code = 39982) 6.7 % HEMOGLOBIN [id number] 00:00:00 Test Item Value Reference Range Interpretation Comments HEMOGLOBIN A1c (test code = 09212) 6.7 % HEMOGLOBIN [id number] 00:00:00 Test Item Value Reference Range Interpretation Comments HEMOGLOBIN A1c (test code = 18276) 6.7 % LIPID [id number] 00:00:00 Test Item Value Reference Range Interpretation Comments CHOLESTEROL (test code = 2210) 267 MG/DL TRIGLYCERIDES (test code = 2232) 137 MG/DL HDL CHOLESTEROL (test code = 2220) 48 MG/DL CALC LDL CHOL (test code = 2237) 192 MG/DL RISK RATIO LDL/HDL (test code = 4.00 RATIO 2238) LIPID [id number] 00:00:00 Test Item Value Reference Range Interpretation Comments CHOLESTEROL (test code = 2210) 267 MG/DL TRIGLYCERIDES (test code = 2232) 137 MG/DL HDL CHOLESTEROL (test code = 2220) 48 MG/DL CALC LDL CHOL (test code = 2237) 192 MG/DL RISK RATIO LDL/HDL (test code = 4.00 RATIO 2238) COMPREHENSIVE METABOLIC [id number] 00:00:00 Test Item Value Reference Range Interpretation Comments GLUCOSE (test code = 2217) 155 MG/DL BUN (test code = 2208) 14 MG/DL CREATININE (test code = 2214) 0.52 MG/DL eGFR AMER. (test code 122 ML/MIN/1.73 = 50006) eGFR NON- AMER. (test 105 ML/MIN/1.73 code = 94084) CALC BUN/CREAT (test code = 27 RATIO [...] code = 2219) 27 U/L COMPREHENSIVE METABOLIC [id number] 00:00:00 Test Item Value Reference Range Interpretation Comments GLUCOSE (test code = 2217) 155 MG/DL BUN (test code = 2208) 14 MG/DL CREATININE (test code = 2214) 0.52 MG/DL eGFR AMER. (test code 122 ML/MIN/1.73 = 75502) eGFR NON- AMER. (test 105 ML/MIN/1.73 code = 33874) CALC BUN/CREAT (test code = 27 RATIO [...] THYROX. BIND. CAPAC. (test code 1.0 = 52711) T4 (THYROXINE) (test code = 4.7 UG/DL 2819) CORRECTED T4 (FTI) (test code = 4.7 UG/DL 2820) TSH, THIRD GENERATION (test code 0.201 UIU/ML = 2821) THYROID II PROFILE (T3U, T4, T7, TSH)2019 00:00:00 Test Item Value Reference Range Interpretation Comments T-UPTAKE (test code = 7) 33.1 % THYROX. BIND. CAPAC. (test code 1.0 = 80450) T4 (THYROXINE) (test code = 4.7 UG/DL 2819) CORRECTED T4 (FTI) (test code = 4.7 UG/DL 2820) TSH, THIRD GENERATION (test code 0.201 UIU/ML = 2821) HEMOGLOBIN [id number] 00:00:00 Test Item Value Reference Range Interpretation Comments HEMOGLOBIN A1c (test code = 23347) 6.7 % HEMOGLOBIN [id number] 00:00:00 Test Item Value Reference Range Interpretation Comments HEMOGLOBIN A1c (test code = 88992) 6.7 % LIPID [id number] 00:00:00 Test Item Value Reference Range Interpretation Comments CHOLESTEROL (test code = 2210) 267 MG/DL TRIGLYCERIDES (test code = 2232) 137 MG/DL HDL CHOLESTEROL (test code = 2220) 48 MG/DL CALC LDL CHOL (test code = 2237) 192 MG/DL RISK RATIO LDL/HDL (test code = 4.00 RATIO 2238) COMPREHENSIVE METABOLIC [id number] 00:00:00 Test Item Value Reference Range Interpretation Comments GLUCOSE (test code = 2217) 155 MG/DL BUN (test code = 2208) 14 MG/DL CREATININE (test code = 2214) 0.52 MG/DL eGFR AMER. (test code 122 ML/MIN/1.73 = 45947) eGFR NON- AMER. (test 105 ML/MIN/1.73 code = 70762) CALC BUN/CREAT (test code = 27 RATIO [...] THYROX. BIND. CAPAC. (test code 1.0 = 07362) T4 (THYROXINE) (test code = 4.7 UG/DL 2819) CORRECTED T4 (FTI) (test code = 4.7 UG/DL 2820) TSH, THIRD GENERATION (test code 0.201 UIU/ML = 2821) HEMOGLOBIN [id number] 00:00:00 Test Item Value Reference Range Interpretation Comments HEMOGLOBIN A1c (test code = 94538) 6.7 % HEMOGLOBIN [id number] 00:00:00 Test Item Value Reference Range Interpretation Comments HEMOGLOBIN A1c (test code = 79898) 6.7 % HEMOGLOBIN [id number] 00:00:00 Test Item Value Reference Range Interpretation Comments HEMOGLOBIN A1c (test code = 04881) 6.7 % LIPID [id number] 00:00:00 Test Item Value Reference Range Interpretation Comments CHOLESTEROL (test code = 2210) 267 MG/DL TRIGLYCERIDES (test code = 2232) 137 MG/DL HDL CHOLESTEROL (test code = 2220) 48 MG/DL CALC LDL CHOL (test code = 2237) 192 MG/DL RISK RATIO LDL/HDL (test code = 4.00 RATIO 2238) LIPID [id number] 00:00:00 Test Item Value Reference Range Interpretation Comments CHOLESTEROL (test code = 2210) 267 MG/DL TRIGLYCERIDES (test code = 2232) 137 MG/DL HDL CHOLESTEROL (test code = 2220) 48 MG/DL CALC LDL CHOL (test code = 2237) 192 MG/DL RISK RATIO LDL/HDL (test code = 4.00 RATIO 2238) COMPREHENSIVE METABOLIC [id number] 00:00:00 Test Item Value Reference Range Interpretation Comments GLUCOSE (test code = 2217) 155 MG/DL BUN (test code = 2208) 14 MG/DL CREATININE (test code = 2214) 0.52 MG/DL eGFR AMER. (test code 122 ML/MIN/1.73 = 07004) eGFR NON- AMER. (test 105 ML/MIN/1.73 code = 10852) CALC BUN/CREAT (test code = 27 RATIO [...] code = 2219) 27 U/L COMPREHENSIVE METABOLIC [id number] 00:00:00 Test Item Value Reference Range Interpretation Comments GLUCOSE (test code = 2217) 155 MG/DL BUN (test code = 2208) 14 MG/DL CREATININE (test code = 2214) 0.52 MG/DL eGFR AMER. (test code 122 ML/MIN/1.73 = 37025) eGFR NON- AMER. (test 105 ML/MIN/1.73 code = 24086) CALC BUN/CREAT (test code = 27 RATIO [...] THYROX. BIND. CAPAC. (test code 1.0 = 17328) T4 (THYROXINE) (test code = 4.7 UG/DL 2819) CORRECTED T4 (FTI) (test code = 4.7 UG/DL 2820) TSH, THIRD GENERATION (test code 0.201 UIU/ML = 2821) THYROID II PROFILE (T3U, T4, T7, TSH)2019 00:00:00 Test Item Value Reference Range Interpretation Comments T-UPTAKE (test code = 2816) 33.1 % THYROX. BIND. CAPAC. (test code 1.0 = 25068) T4 (THYROXINE) (test code = 4.7 UG/DL 2819) CORRECTED T4 (FTI) (test code = 4.7 UG/DL 2820) TSH, THIRD GENERATION (test code 0.201 UIU/ML = 2821) SARS-CoV-2 (COVID-19) by RT-PCR (HIGH RISK)2019-09-18 00:00:00 Test Item Value Reference Range Interpretation Comments SARS-CoV-2 INTERPRETATION (test NEGATIVE code = 82282) SOURCE (test code = 87641) NOT SPECIFIED SARS-CoV-2 (COVID-19) by RT-PCR (HIGH RISK)2019-09-18 00:00:00 Test Item Value Reference Range Interpretation Comments SARS-CoV-2 INTERPRETATION (test NEGATIVE code = 72910) SOURCE (test code = 68988) NOT SPECIFIED SARS-CoV-2 (COVID-19) by RT-PCR (HIGH RISK)2019-09-18 00:00:00 Test Item Value Reference Range Interpretation Comments SARS-CoV-2 INTERPRETATION (test NEGATIVE code = 09746) SOURCE (test code = 76523) NOT SPECIFIED SARS-CoV-2 (COVID-19) by RT-PCR (HIGH RISK)2019-09-18 00:00:00 Test Item Value Reference Range Interpretation Comments SARS-CoV-2 INTERPRETATION (test NEGATIVE code = 29105) SOURCE (test code = 21355) NOT SPECIFIED SARS-CoV-2 (COVID-19) by RT-PCR (HIGH RISK)2019-09-18 00:00:00 Test Item Value Reference Range Interpretation Comments SARS-CoV-2 INTERPRETATION (test NEGATIVE code = 41651) SOURCE (test code = 12373) NOT SPECIFIED SARS-CoV-2 (COVID-19) by RT-PCR (HIGH RISK)2019-09-18 00:00:00 Test Item Value Reference Range Interpretation Comments SARS-CoV-2 INTERPRETATION (test NEGATIVE code = 27948) SOURCE (test code = 71423) NOT SPECIFIED SARS-CoV-2 (COVID-19) by RT-PCR (HIGH RISK)2019-09-18 00:00:00 Test Item Value Reference Range Interpretation Comments SARS-CoV-2 INTERPRETATION (test NEGATIVE code = 94696) SOURCE (test code = 23402) NOT SPECIFIED [id number] 00:00:00 Test Item Value Reference Range Interpretation Comments TSH, THIRD GENERATION (test code 2.490 UIU/ML = 2821) [id number] 00:00:00 Test Item Value Reference Range Interpretation Comments TSH, THIRD GENERATION (test code 2.490 UIU/ML = 2821) [id number] 00:00:00 Test Item Value Reference Range Interpretation Comments TSH, THIRD GENERATION (test code 2.490 UIU/ML = 2821) HEMOGLOBIN [id number] 00:00:00 Test Item Value Reference Range Interpretation Comments HEMOGLOBIN A1c (test code = 86312) 6.4 % HEMOGLOBIN [id number] 00:00:00 Test Item Value Reference Range Interpretation Comments HEMOGLOBIN A1c (test code = 76826) 6.4 % HEMOGLOBIN [id number] 00:00:00 Test Item Value Reference Range Interpretation Comments HEMOGLOBIN A1c (test code = 72422) 6.4 % COMPREHENSIVE METABOLIC [id number] 00:00:00 Test Item Value Reference Range Interpretation Comments GLUCOSE (test code = 2217) 206 MG/DL BUN (test code = 2208) 23 MG/DL CREATININE (test code = 2214) 0.67 MG/DL eGFR AMER. (test code 112 ML/MIN/1.73 = 27535) eGFR NON- AMER. (test 97 ML/MIN/1.73 code = 88495) CALC BUN/CREAT (test code = 34 RATIO [...] code = 2219) 25 U/L COMPREHENSIVE METABOLIC [id number] 00:00:00 Test Item Value Reference Range Interpretation Comments GLUCOSE (test code = 2217) 206 MG/DL BUN (test code = 2208) 23 MG/DL CREATININE (test code = 2214) 0.67 MG/DL eGFR AMER. (test code 112 ML/MIN/1.73 = 89305) eGFR NON- AMER. (test 97 ML/MIN/1.73 code = 78292) CALC BUN/CREAT (test code = 34 RATIO [...] ALT (test code = 2219) 25 U/L [id number] 00:00:00 Test Item Value Reference Range Interpretation Comments TSH, THIRD GENERATION (test code 2.490 UIU/ML = 2821) [id number] 00:00:00 Test Item Value Reference Range Interpretation Comments TSH, THIRD GENERATION (test code 2.490 UIU/ML = 2821) [id number] 00:00:00 Test Item Value Reference Range Interpretation Comments TSH, THIRD GENERATION (test code 2.490 UIU/ML = 2821) HEMOGLOBIN [id number] 00:00:00 Test Item Value Reference Range Interpretation Comments HEMOGLOBIN A1c (test code = 38330) 6.4 % HEMOGLOBIN [id number] 00:00:00 Test Item Value Reference Range Interpretation Comments HEMOGLOBIN A1c (test code = 68770) 6.4 % HEMOGLOBIN [id number] 00:00:00 Test Item Value Reference Range Interpretation Comments HEMOGLOBIN A1c (test code = 12635) 6.4 % COMPREHENSIVE METABOLIC [id number] 00:00:00 Test Item Value Reference Range Interpretation Comments GLUCOSE (test code = 2217) 206 MG/DL BUN (test code = 2208) 23 MG/DL CREATININE (test code = 2214) 0.67 MG/DL eGFR AMER. (test code 112 ML/MIN/1.73 = 71214) eGFR NON- AMER. (test 97 ML/MIN/1.73 code = 82468) CALC BUN/CREAT (test code = 34 RATIO [...] code = 2219) 25 U/L COMPREHENSIVE METABOLIC [id number] 00:00:00 Test Item Value Reference Range Interpretation Comments GLUCOSE (test code = 2217) 206 MG/DL BUN (test code = 2208) 23 MG/DL CREATININE (test code = 2214) 0.67 MG/DL eGFR AMER. (test code 112 ML/MIN/1.73 = 63912) eGFR NON- AMER. (test 97 ML/MIN/1.73 code = 78717) CALC BUN/CREAT (test code = 34 RATIO [...] ALT (test code = 2219) 25 U/L [id number] 00:00:00 Test Item Value Reference Range Interpretation Comments TSH, THIRD GENERATION (test code 2.490 UIU/ML = 2821) [id number] 00:00:00 Test Item Value Reference Range Interpretation Comments TSH, THIRD GENERATION (test code 2.490 UIU/ML = 2821) HEMOGLOBIN [id number] 00:00:00 Test Item Value Reference Range Interpretation Comments HEMOGLOBIN A1c (test code = 11170) 6.4 % HEMOGLOBIN [id number] 00:00:00 Test Item Value Reference Range Interpretation Comments HEMOGLOBIN A1c (test code = 11933) 6.4 % COMPREHENSIVE METABOLIC [id number] 00:00:00 Test Item Value Reference Range Interpretation Comments GLUCOSE (test code = 2217) 206 MG/DL BUN (test code = 2208) 23 MG/DL CREATININE (test code = 2214) 0.67 MG/DL eGFR AMER. (test code 112 ML/MIN/1.73 = 62549) eGFR NON- AMER. (test 97 ML/MIN/1.73 code = 72831) CALC BUN/CREAT (test code = 34 RATIO [...] ALT (test code = 2219) 25 U/L [id number] 00:00:00 Test Item Value Reference Range Interpretation Comments TSH, THIRD GENERATION (test code 2.490 UIU/ML = 2821) [id number] 00:00:00 Test Item Value Reference Range Interpretation Comments TSH, THIRD GENERATION (test code 2.490 UIU/ML = 2821) [id number] 00:00:00 Test Item Value Reference Range Interpretation Comments TSH, THIRD GENERATION (test code 2.490 UIU/ML = 2821) HEMOGLOBIN [id number] 00:00:00 Test Item Value Reference Range Interpretation Comments HEMOGLOBIN A1c (test code = 08249) 6.4 % HEMOGLOBIN [id number] 00:00:00 Test Item Value Reference Range Interpretation Comments HEMOGLOBIN A1c (test code = 07728) 6.4 % HEMOGLOBIN [id number] 00:00:00 Test Item Value Reference Range Interpretation Comments HEMOGLOBIN A1c (test code = 33579) 6.4 % COMPREHENSIVE METABOLIC [id number] 00:00:00 Test Item Value Reference Range Interpretation Comments GLUCOSE (test code = 2217) 206 MG/DL BUN (test code = 2208) 23 MG/DL CREATININE (test code = 2214) 0.67 MG/DL eGFR AMER. (test code 112 ML/MIN/1.73 = 49534) eGFR NON- AMER. (test 97 ML/MIN/1.73 code = 32209) CALC BUN/CREAT (test code = 34 RATIO [...] code = 2219) 25 U/L COMPREHENSIVE METABOLIC [id number] 00:00:00 Test Item Value Reference Range Interpretation Comments GLUCOSE (test code = 2217) 206 MG/DL BUN (test code = 2208) 23 MG/DL CREATININE (test code = 2214) 0.67 MG/DL eGFR AMER. (test code 112 ML/MIN/1.73 = 56220) eGFR NON- AMER. (test 97 ML/MIN/1.73 code = 11252) CALC BUN/CREAT (test code = 34 RATIO [...] = 2219) 25 U/L VAGINAL PATHOGENS DNA [id number] 00:00:00 Test Item Value Reference Range Interpretation Comments MARK SPECIES (test code = 96637) NEGATIVE G. VAGINALIS (test code = 63365) NEGATIVE T. VAGINALIS (test code = 96535) NEGATIVE VAGINAL PATHOGENS DNA [id number] 00:00:00 Test Item Value Reference Range Interpretation Comments MARK SPECIES (test code = 88832) NEGATIVE G. VAGINALIS (test code = 54455) NEGATIVE T. VAGINALIS (test code = 24266) NEGATIVE VAGINAL PATHOGENS DNA [id number] 00:00:00 Test Item Value Reference Range Interpretation Comments MARK SPECIES (test code = 20582) NEGATIVE G. VAGINALIS (test code = 80998) NEGATIVE T. VAGINALIS (test code = 32652) NEGATIVE VAGINAL PATHOGENS DNA [id number] 00:00:00 Test Item Value Reference Range Interpretation Comments MARK SPECIES (test code = 81904) NEGATIVE G. VAGINALIS (test code = 09632) NEGATIVE T. VAGINALIS (test code = 90608) NEGATIVE VAGINAL PATHOGENS DNA [id number] 00:00:00 Test Item Value Reference Range Interpretation Comments MARK SPECIES (test code = ) NEGATIVE G. VAGINALIS (test code = 49289) NEGATIVE T. VAGINALIS (test code = 65207) NEGATIVE VAGINAL PATHOGENS DNA [id number] 00:00:00 Test Item Value Reference Range Interpretation Comments MARK SPECIES (test code = 04188) NEGATIVE G. VAGINALIS (test code = 24354) NEGATIVE T. VAGINALIS (test code = 81524) NEGATIVE VAGINAL PATHOGENS DNA [id number] 00:00:00 Test Item Value Reference Range Interpretation Comments MARK SPECIES (test code = ) NEGATIVE G. VAGINALIS (test code = 93316) NEGATIVE T. VAGINALIS (test code = 50388) NEGATIVE HEMOGLOBIN A1c [ADDED]2018-12-01 00:00:00 Test Item Value Reference Range Interpretation Comments HEMOGLOBIN A1c (test code = 63936) 6.7 % HEMOGLOBIN A1c [ADDED]2018-12-01 00:00:00 Test Item Value Reference Range Interpretation Comments HEMOGLOBIN A1c (test code = 93898) 6.7 % HEMOGLOBIN A1c [ADDED]2018-12-01 00:00:00 Test Item Value Reference Range Interpretation Comments HEMOGLOBIN A1c (test code = 05105) 6.7 % COMPREHENSIVE METABOLIC PANEL [ADDED]2018-12-01 00:00:00 Test Item Value Reference Range Interpretation Comments GLUCOSE (test code = 2217) 136 MG/DL BUN (test code = 2208) 15 MG/DL CREATININE (test code = 2214) 0.64 MG/DL eGFR AMER. (test code 115 ML/MIN/1.73 = 59880) eGFR NON- AMER. (test 99 ML/MIN/1.73 code = 71649) CALC BUN/CREAT (test code = 23 RATIO [...] eGFR AMER. (test code 115 ML/MIN/1.73 = 66182) eGFR NON- AMER. (test 99 ML/MIN/1.73 code = 50810) CALC BUN/CREAT (test code = 23 RATIO [...] Interpretation Comments HEMOGLOBIN A1c (test code = 37524) 6.7 % HEMOGLOBIN A1c [ADDED]2018-12-01 00:00:00 Test Item Value Reference Range Interpretation Comments HEMOGLOBIN A1c (test code = 51757) 6.7 % HEMOGLOBIN A1c [ADDED]2018-12-01 00:00:00 Test Item Value Reference Range Interpretation Comments HEMOGLOBIN A1c (test code = 68095) 6.7 % COMPREHENSIVE METABOLIC PANEL [ADDED]2018-12-01 00:00:00 Test Item Value Reference Range Interpretation Comments GLUCOSE (test code = 2217) 136 MG/DL BUN (test code = 2208) 15 MG/DL CREATININE (test code = 2214) 0.64 MG/DL eGFR AMER. (test code 115 ML/MIN/1.73 = 49397) eGFR NON- AMER. (test 99 ML/MIN/1.73 code = 28350) CALC BUN/CREAT (test code = 23 RATIO [...] eGFR AMER. (test code 115 ML/MIN/1.73 = 14654) eGFR NON- AMER. (test 99 ML/MIN/1.73 code = 02799) CALC BUN/CREAT (test code = 23 RATIO [...] Interpretation Comments HEMOGLOBIN A1c (test code = 75133) 6.7 % HEMOGLOBIN A1c [ADDED]2018-12-01 00:00:00 Test Item Value Reference Range Interpretation Comments HEMOGLOBIN A1c (test code = 29654) 6.7 % COMPREHENSIVE METABOLIC PANEL [ADDED]2018-12-01 00:00:00 Test Item Value Reference Range Interpretation Comments GLUCOSE (test code = 2217) 136 MG/DL BUN (test code = 2208) 15 MG/DL CREATININE (test code = 2214) 0.64 MG/DL eGFR AMER. (test code 115 ML/MIN/1.73 = 10573) eGFR NON- AMER. (test 99 ML/MIN/1.73 code = 93700) CALC BUN/CREAT (test code = 23 RATIO [...] Interpretation Comments HEMOGLOBIN A1c (test code = 74995) 6.7 % HEMOGLOBIN A1c [ADDED]2018-12-01 00:00:00 Test Item Value Reference Range Interpretation Comments HEMOGLOBIN A1c (test code = 09122) 6.7 % HEMOGLOBIN A1c [ADDED]2018-12-01 00:00:00 Test Item Value Reference Range Interpretation Comments HEMOGLOBIN A1c (test code = 22619) 6.7 % COMPREHENSIVE METABOLIC PANEL [ADDED]2018-12-01 00:00:00 Test Item Value Reference Range Interpretation Comments GLUCOSE (test code = 2217) 136 MG/DL BUN (test code = 2208) 15 MG/DL CREATININE (test code = 2214) 0.64 MG/DL eGFR AMER. (test code 115 ML/MIN/1.73 = 01837) eGFR NON- AMER. (test 99 ML/MIN/1.73 code = 53899) CALC BUN/CREAT (test code = 23 RATIO [...] eGFR AMER. (test code 115 ML/MIN/1.73 = 47633) eGFR NON- AMER. (test 99 ML/MIN/1.73 code = 69250) CALC BUN/CREAT (test code = 23 RATIO [...] code 1.280 UIU/ML = 2821) CBC W/AUTO [id number] 00:00:00 Test Item Value Reference Range Interpretation [...] code = 1015) 346 K/UL CBC W/AUTO [id number] 00:00:00 Test Item Value Reference Range Interpretation [...] code = 1015) 346 K/UL CBC W/AUTO [id number] 00:00:00 Test Item Value Reference Range Interpretation [...] (test code = 1015) 346 K/UL HEMOGLOBIN [id number] 00:00:00 Test Item Value Reference Range Interpretation Comments HEMOGLOBIN A1c (test code = 07925) 5.9 % HEMOGLOBIN [id number] 00:00:00 Test Item Value Reference Range Interpretation Comments HEMOGLOBIN A1c (test code = 36912) 5.9 % HEMOGLOBIN [id number] 00:00:00 Test Item Value Reference Range Interpretation Comments HEMOGLOBIN A1c (test code = 11003) 5.9 % LIPID [id number] 00:00:00 Test Item Value Reference Range Interpretation Comments CHOLESTEROL (test code = 2210) 318 MG/DL TRIGLYCERIDES (test code = 2232) 263 MG/DL HDL CHOLESTEROL (test code = 2220) 51 MG/DL CALC LDL CHOL (test code = 2237) 214 MG/DL RISK RATIO LDL/HDL (test code = 4.20 RATIO 2238) LIPID [id number] 00:00:00 Test Item Value Reference Range Interpretation Comments CHOLESTEROL (test code = 2210) 318 MG/DL TRIGLYCERIDES (test code = 2232) 263 MG/DL HDL CHOLESTEROL (test code = 2220) 51 MG/DL CALC LDL CHOL (test code = 2237) 214 MG/DL RISK RATIO LDL/HDL (test code = 4.20 RATIO 2238) COMPREHENSIVE METABOLIC [id number] 00:00:00 Test Item Value Reference Range Interpretation Comments GLUCOSE (test code = 2217) 113 MG/DL BUN (test code = 2208) 18 MG/DL CREATININE (test code = 2214) 0.70 MG/DL eGFR AMER. (test code 111 ML/MIN/1.73 = 74616) eGFR NON- AMER. (test 96 ML/MIN/1.73 code = 24317) CALC BUN/CREAT (test code = 26 RATIO [...] code = 2219) 31 U/L COMPREHENSIVE METABOLIC [id number] 00:00:00 Test Item Value Reference Range Interpretation Comments GLUCOSE (test code = 2217) 113 MG/DL BUN (test code = 2208) 18 MG/DL CREATININE (test code = 2214) 0.70 MG/DL eGFR AMER. (test code 111 ML/MIN/1.73 = 36286) eGFR NON- AMER. (test 96 ML/MIN/1.73 code = 65943) CALC BUN/CREAT (test code = 26 RATIO [...] ALT (test code = 2219) 31 U/L [id number] 00:00:00 Test Item Value Reference Range Interpretation Comments TSH, THIRD GENERATION (test code 2.520 UIU/ML = 2821) [id number] 00:00:00 Test Item Value Reference Range Interpretation Comments TSH, THIRD GENERATION (test code 2.520 UIU/ML = 2821) [id number] 00:00:00 Test Item Value Reference Range Interpretation Comments TSH, THIRD GENERATION (test code 2.520 UIU/ML = 2821) CBC W/AUTO [id number] 00:00:00 Test Item Value Reference Range Interpretation [...] code = 1015) 346 K/UL CBC W/AUTO [id number] 00:00:00 Test Item Value Reference Range Interpretation [...] code = 1015) 346 K/UL CBC W/AUTO [id number] 00:00:00 Test Item Value Reference Range Interpretation [...] (test code = 1015) 346 K/UL HEMOGLOBIN [id number] 00:00:00 Test Item Value Reference Range Interpretation Comments HEMOGLOBIN A1c (test code = 27952) 5.9 % HEMOGLOBIN [id number] 00:00:00 Test Item Value Reference Range Interpretation Comments HEMOGLOBIN A1c (test code = 21460) 5.9 % HEMOGLOBIN [id number] 00:00:00 Test Item Value Reference Range Interpretation Comments HEMOGLOBIN A1c (test code = 90481) 5.9 % LIPID [id number] 00:00:00 Test Item Value Reference Range Interpretation Comments CHOLESTEROL (test code = 2210) 318 MG/DL TRIGLYCERIDES (test code = 2232) 263 MG/DL HDL CHOLESTEROL (test code = 2220) 51 MG/DL CALC LDL CHOL (test code = 2237) 214 MG/DL RISK RATIO LDL/HDL (test code = 4.20 RATIO 2238) LIPID [id number] 00:00:00 Test Item Value Reference Range Interpretation Comments CHOLESTEROL (test code = 2210) 318 MG/DL TRIGLYCERIDES (test code = 2232) 263 MG/DL HDL CHOLESTEROL (test code = 2220) 51 MG/DL CALC LDL CHOL (test code = 2237) 214 MG/DL RISK RATIO LDL/HDL (test code = 4.20 RATIO 2238) COMPREHENSIVE METABOLIC [id number] 00:00:00 Test Item Value Reference Range Interpretation Comments GLUCOSE (test code = 2217) 113 MG/DL BUN (test code = 2208) 18 MG/DL CREATININE (test code = 2214) 0.70 MG/DL eGFR AMER. (test code 111 ML/MIN/1.73 = 14828) eGFR NON- AMER. (test 96 ML/MIN/1.73 code = 82449) CALC BUN/CREAT (test code = 26 RATIO [...] code = 2219) 31 U/L COMPREHENSIVE METABOLIC [id number] 00:00:00 Test Item Value Reference Range Interpretation Comments GLUCOSE (test code = 2217) 113 MG/DL BUN (test code = 2208) 18 MG/DL CREATININE (test code = 2214) 0.70 MG/DL eGFR AMER. (test code 111 ML/MIN/1.73 = 14725) eGFR NON- AMER. (test 96 ML/MIN/1.73 code = 35590) CALC BUN/CREAT (test code = 26 RATIO [...] ALT (test code = 2219) 31 U/L [id number] 00:00:00 Test Item Value Reference Range Interpretation Comments TSH, THIRD GENERATION (test code 2.520 UIU/ML = 2821) [id number] 00:00:00 Test Item Value Reference Range Interpretation Comments TSH, THIRD GENERATION (test code 2.520 UIU/ML = 2821) [id number] 00:00:00 Test Item Value Reference Range Interpretation Comments TSH, THIRD GENERATION (test code 2.520 UIU/ML = 2821) CBC W/AUTO [id number] 00:00:00 Test Item Value Reference Range Interpretation [...] code = 1015) 346 K/UL CBC W/AUTO [id number] 00:00:00 Test Item Value Reference Range Interpretation [...] (test code = 1015) 346 K/UL HEMOGLOBIN [id number] 00:00:00 Test Item Value Reference Range Interpretation Comments HEMOGLOBIN A1c (test code = 87988) 5.9 % HEMOGLOBIN [id number] 00:00:00 Test Item Value Reference Range Interpretation Comments HEMOGLOBIN A1c (test code = 11556) 5.9 % LIPID [id number] 00:00:00 Test Item Value Reference Range Interpretation Comments CHOLESTEROL (test code = 2210) 318 MG/DL TRIGLYCERIDES (test code = 2232) 263 MG/DL HDL CHOLESTEROL (test code = 2220) 51 MG/DL CALC LDL CHOL (test code = 2237) 214 MG/DL RISK RATIO LDL/HDL (test code = 4.20 RATIO 2238) COMPREHENSIVE METABOLIC [id number] 00:00:00 Test Item Value Reference Range Interpretation Comments GLUCOSE (test code = 2217) 113 MG/DL BUN (test code = 2208) 18 MG/DL CREATININE (test code = 2214) 0.70 MG/DL eGFR AMER. (test code 111 ML/MIN/1.73 = 34470) eGFR NON- AMER. (test 96 ML/MIN/1.73 code = 08439) CALC BUN/CREAT (test code = 26 RATIO [...] ALT (test code = 2219) 31 U/L [id number] 00:00:00 Test Item Value Reference Range Interpretation Comments TSH, THIRD GENERATION (test code 2.520 UIU/ML = 2821) [id number] 00:00:00 Test Item Value Reference Range Interpretation Comments TSH, THIRD GENERATION (test code 2.520 UIU/ML = 2821) CBC W/AUTO [id number] 00:00:00 Test Item Value Reference Range Interpretation [...] code = 1015) 346 K/UL CBC W/AUTO [id number] 00:00:00 Test Item Value Reference Range Interpretation [...] code = 1015) 346 K/UL CBC W/AUTO [id number] 00:00:00 Test Item Value Reference Range Interpretation [...] (test code = 1015) 346 K/UL HEMOGLOBIN [id number] 00:00:00 Test Item Value Reference Range Interpretation Comments HEMOGLOBIN A1c (test code = 11236) 5.9 % HEMOGLOBIN [id number] 00:00:00 Test Item Value Reference Range Interpretation Comments HEMOGLOBIN A1c (test code = 81061) 5.9 % HEMOGLOBIN [id number] 00:00:00 Test Item Value Reference Range Interpretation Comments HEMOGLOBIN A1c (test code = 23482) 5.9 % LIPID [id number] 00:00:00 Test Item Value Reference Range Interpretation Comments CHOLESTEROL (test code = 2210) 318 MG/DL TRIGLYCERIDES (test code = 2232) 263 MG/DL HDL CHOLESTEROL (test code = 2220) 51 MG/DL CALC LDL CHOL (test code = 2237) 214 MG/DL RISK RATIO LDL/HDL (test code = 4.20 RATIO 2238) LIPID [id number] 00:00:00 Test Item Value Reference Range Interpretation Comments CHOLESTEROL (test code = 2210) 318 MG/DL TRIGLYCERIDES (test code = 2232) 263 MG/DL HDL CHOLESTEROL (test code = 2220) 51 MG/DL CALC LDL CHOL (test code = 2237) 214 MG/DL RISK RATIO LDL/HDL (test code = 4.20 RATIO 2238) COMPREHENSIVE METABOLIC [id number] 00:00:00 Test Item Value Reference Range Interpretation Comments GLUCOSE (test code = 2217) 113 MG/DL BUN (test code = 2208) 18 MG/DL CREATININE (test code = 2214) 0.70 MG/DL eGFR AMER. (test code 111 ML/MIN/1.73 = 64002) eGFR NON- AMER. (test 96 ML/MIN/1.73 code = 97365) CALC BUN/CREAT (test code = 26 RATIO [...] code = 2219) 31 U/L COMPREHENSIVE METABOLIC [id number] 00:00:00 Test Item Value Reference Range Interpretation Comments GLUCOSE (test code = 2217) 113 MG/DL BUN (test code = 2208) 18 MG/DL CREATININE (test code = 2214) 0.70 MG/DL eGFR AMER. (test code 111 ML/MIN/1.73 = 23532) eGFR NON- AMER. (test 96 ML/MIN/1.73 code = 27165) CALC BUN/CREAT (test code = 26 RATIO [...] ALT (test code = 2219) 31 U/L [id number] 00:00:00 Test Item Value Reference Range Interpretation Comments TSH, THIRD GENERATION (test code 2.520 UIU/ML = 2821) [id number] 00:00:00 Test Item Value Reference Range Interpretation Comments TSH, THIRD GENERATION (test code 2.520 UIU/ML = 2821) [id number] 00:00:00 Test Item Value Reference Range Interpretation Comments TSH, THIRD GENERATION (test code 2.520 UIU/ML = 2821) CULTURE, [id number] 00:00:00 Test Item Value Reference Range Interpretation Comments CULTURE, URINE (test SPECIMEN NUMBER: code = 13764) [id number] CULTURE, [id number] 00:00:00 Test Item Value Reference Range Interpretation Comments CULTURE, URINE (test SPECIMEN NUMBER: code = 74710) [id number] CULTURE, [id number] 00:00:00 Test Item Value Reference Range Interpretation Comments CULTURE, URINE (test SPECIMEN NUMBER: code = 38516) [id number] CULTURE, [id number] 00:00:00 Test Item Value Reference Range Interpretation Comments CULTURE, URINE (test SPECIMEN NUMBER: code = 11364) [id number] CULTURE, [id number] 00:00:00 Test Item Value Reference Range Interpretation Comments CULTURE, URINE (test SPECIMEN NUMBER: code = 34830) [id number] CULTURE, [id number] 00:00:00 Test Item Value Reference Range Interpretation Comments CULTURE, URINE (test SPECIMEN NUMBER: code = 89743) [id number] CULTURE, [id number] 00:00:00 Test Item Value Reference Range Interpretation Comments CULTURE, URINE (test SPECIMEN NUMBER: code = 93789) [id number] CULTURE, [id number] 00:00:00 Test Item Value Reference Range Interpretation Comments CULTURE, URINE (test SPECIMEN NUMBER: code = 08168) [id number] CULTURE, [id number] 00:00:00 Test Item Value Reference Range Interpretation Comments CULTURE, URINE (test SPECIMEN NUMBER: code = 63862) [id number] CULTURE, [id number] 00:00:00 Test Item Value Reference Range Interpretation Comments CULTURE, URINE (test SPECIMEN NUMBER: code = 09747) [id number] CULTURE, [id number] 00:00:00 Test Item Value Reference Range Interpretation Comments CULTURE, URINE (test SPECIMEN NUMBER: code = 44437) [id number] CULTURE, [id number] 00:00:00 Test Item Value Reference Range Interpretation Comments CULTURE, URINE (test SPECIMEN NUMBER: code = 17917) [id number] CULTURE, [id number] 00:00:00 Test Item Value Reference Range Interpretation Comments CULTURE, URINE (test SPECIMEN NUMBER: code = 99276) [id number] CULTURE, [id number] 00:00:00 Test Item Value Reference Range Interpretation Comments CULTURE, URINE (test SPECIMEN NUMBER: code = 62177) [id number] BASIC METABOLIC [id number] 00:00:00 Test Item Value Reference Range Interpretation Comments GLUCOSE (test code = 2217) 135 MG/DL BUN (test code = 2208) 25 MG/DL CREATININE (test code = 2214) 0.76 MG/DL eGFR AMER. (test code 101 ML/MIN/1.73 = 00573) eGFR NON- AMER. (test 87 ML/MIN/1.73 code = 68774) SODIUM (test code = 2231) 139 MEQ/L POTASSIUM (test code = 2228) 4.7 MEQ/L CHLORIDE (test code = 2215) 99 MEQ/L CARBON DIOXIDE (test code = 26 MEQ/L 2206) CALCIUM (test code = 2209) 9.4 MG/DL BASIC METABOLIC [id number] 00:00:00 Test Item Value Reference Range Interpretation Comments GLUCOSE (test code = 2217) 135 MG/DL BUN (test code = 2208) 25 MG/DL CREATININE (test code = 2214) 0.76 MG/DL eGFR AMER. (test code 101 ML/MIN/1.73 = 41150) eGFR NON- AMER. (test 87 ML/MIN/1.73 code = 73844) SODIUM (test code = 2231) 139 MEQ/L POTASSIUM (test code = 2228) 4.7 MEQ/L CHLORIDE (test code = 2215) 99 MEQ/L CARBON DIOXIDE (test code = 26 MEQ/L 2206) CALCIUM (test code = 2209) 9.4 MG/DL LIPID [id number] 00:00:00 Test Item Value Reference Range Interpretation Comments CHOLESTEROL (test code = 2210) 262 MG/DL TRIGLYCERIDES (test code = 2232) 300 MG/DL HDL CHOLESTEROL (test code = 2220) 36 MG/DL CALC LDL CHOL (test code = 2237) 166 MG/DL RISK RATIO LDL/HDL (test code = 4.61 RATIO 2238) LIPID [id number] 00:00:00 Test Item Value Reference Range Interpretation Comments CHOLESTEROL (test code = 2210) 262 MG/DL TRIGLYCERIDES (test code = 2232) 300 MG/DL HDL CHOLESTEROL (test code = 2220) 36 MG/DL CALC LDL CHOL (test code = 2237) 166 MG/DL RISK RATIO LDL/HDL (test code = 4.61 RATIO 2238) HEMOGLOBIN [id number] 00:00:00 Test Item Value Reference Range Interpretation Comments HEMOGLOBIN A1c (test code = 56587) 6.2 % HEMOGLOBIN [id number] 00:00:00 Test Item Value Reference Range Interpretation Comments HEMOGLOBIN A1c (test code = 96710) 6.2 % HEMOGLOBIN [id number] 00:00:00 Test Item Value Reference Range Interpretation Comments HEMOGLOBIN A1c (test code = 64424) 6.2 % [id number] 00:00:00 Test Item Value Reference Range Interpretation Comments TSH, THIRD GENERATION (test code 0.988 UIU/ML = 2821) [id number] 00:00:00 Test Item Value Reference Range Interpretation Comments TSH, THIRD GENERATION (test code 0.988 UIU/ML = 2821) [id number] 00:00:00 Test Item Value Reference Range Interpretation Comments TSH, THIRD GENERATION (test code 0.988 UIU/ML = 2821) BASIC METABOLIC [id number] 00:00:00 Test Item Value Reference Range Interpretation Comments GLUCOSE (test code = 2217) 135 MG/DL BUN (test code = 2208) 25 MG/DL CREATININE (test code = 2214) 0.76 MG/DL eGFR AMER. (test code 101 ML/MIN/1.73 = 97574) eGFR NON- AMER. (test 87 ML/MIN/1.73 code = 27169) SODIUM (test code = 2231) 139 MEQ/L POTASSIUM (test code = 2228) 4.7 MEQ/L CHLORIDE (test code = 2215) 99 MEQ/L CARBON DIOXIDE (test code = 26 MEQ/L 2206) CALCIUM (test code = 2209) 9.4 MG/DL BASIC METABOLIC [id number] 00:00:00 Test Item Value Reference Range Interpretation Comments GLUCOSE (test code = 2217) 135 MG/DL BUN (test code = 2208) 25 MG/DL CREATININE (test code = 2214) 0.76 MG/DL eGFR AMER. (test code 101 ML/MIN/1.73 = 41659) eGFR NON- AMER. (test 87 ML/MIN/1.73 code = 78454) SODIUM (test code = 2231) 139 MEQ/L POTASSIUM (test code = 2228) 4.7 MEQ/L CHLORIDE (test code = 2215) 99 MEQ/L CARBON DIOXIDE (test code = 26 MEQ/L 2206) CALCIUM (test code = 2209) 9.4 MG/DL LIPID [id number] 00:00:00 Test Item Value Reference Range Interpretation Comments CHOLESTEROL (test code = 2210) 262 MG/DL TRIGLYCERIDES (test code = 2232) 300 MG/DL HDL CHOLESTEROL (test code = 2220) 36 MG/DL CALC LDL CHOL (test code = 2237) 166 MG/DL RISK RATIO LDL/HDL (test code = 4.61 RATIO 2238) LIPID [id number] 00:00:00 Test Item Value Reference Range Interpretation Comments CHOLESTEROL (test code = 2210) 262 MG/DL TRIGLYCERIDES (test code = 2232) 300 MG/DL HDL CHOLESTEROL (test code = 2220) 36 MG/DL CALC LDL CHOL (test code = 2237) 166 MG/DL RISK RATIO LDL/HDL (test code = 4.61 RATIO 2238) HEMOGLOBIN [id number] 00:00:00 Test Item Value Reference Range Interpretation Comments HEMOGLOBIN A1c (test code = 20144) 6.2 % HEMOGLOBIN [id number] 00:00:00 Test Item Value Reference Range Interpretation Comments HEMOGLOBIN A1c (test code = 15505) 6.2 % HEMOGLOBIN [id number] 00:00:00 Test Item Value Reference Range Interpretation Comments HEMOGLOBIN A1c (test code = 72701) 6.2 % [id number] 00:00:00 Test Item Value Reference Range Interpretation Comments TSH, THIRD GENERATION (test code 0.988 UIU/ML = 2821) [id number] 00:00:00 Test Item Value Reference Range Interpretation Comments TSH, THIRD GENERATION (test code 0.988 UIU/ML = 2821) [id number] 00:00:00 Test Item Value Reference Range Interpretation Comments TSH, THIRD GENERATION (test code 0.988 UIU/ML = 2821) BASIC METABOLIC [id number] 00:00:00 Test Item Value Reference Range Interpretation Comments GLUCOSE (test code = 2217) 135 MG/DL BUN (test code = 2208) 25 MG/DL CREATININE (test code = 2214) 0.76 MG/DL eGFR AMER. (test code 101 ML/MIN/1.73 = 58409) eGFR NON- AMER. (test 87 ML/MIN/1.73 code = 19392) SODIUM (test code = 2231) 139 MEQ/L POTASSIUM (test code = 2228) 4.7 MEQ/L CHLORIDE (test code = 2215) 99 MEQ/L CARBON DIOXIDE (test code = 26 MEQ/L 2206) CALCIUM (test code = 2209) 9.4 MG/DL LIPID [id number] 00:00:00 Test Item Value Reference Range Interpretation Comments CHOLESTEROL (test code = 2210) 262 MG/DL TRIGLYCERIDES (test code = 2232) 300 MG/DL HDL CHOLESTEROL (test code = 2220) 36 MG/DL CALC LDL CHOL (test code = 2237) 166 MG/DL RISK RATIO LDL/HDL (test code = 4.61 RATIO 2238) HEMOGLOBIN [id number] 00:00:00 Test Item Value Reference Range Interpretation Comments HEMOGLOBIN A1c (test code = 22876) 6.2 % HEMOGLOBIN [id number] 00:00:00 Test Item Value Reference Range Interpretation Comments HEMOGLOBIN A1c (test code = 34759) 6.2 % [id number] 00:00:00 Test Item Value Reference Range Interpretation Comments TSH, THIRD GENERATION (test code 0.988 UIU/ML = 2821) [id number] 00:00:00 Test Item Value Reference Range Interpretation Comments TSH, THIRD GENERATION (test code 0.988 UIU/ML = 2821) BASIC METABOLIC [id number] 00:00:00 Test Item Value Reference Range Interpretation Comments GLUCOSE (test code = 2217) 135 MG/DL BUN (test code = 2208) 25 MG/DL CREATININE (test code = 2214) 0.76 MG/DL eGFR AMER. (test code 101 ML/MIN/1.73 = 69080) eGFR NON- AMER. (test 87 ML/MIN/1.73 code = 92677) SODIUM (test code = 2231) 139 MEQ/L POTASSIUM (test code = 2228) 4.7 MEQ/L CHLORIDE (test code = 2215) 99 MEQ/L CARBON DIOXIDE (test code = 26 MEQ/L 2206) CALCIUM (test code = 2209) 9.4 MG/DL BASIC METABOLIC [id number] 00:00:00 Test Item Value Reference Range Interpretation Comments GLUCOSE (test code = 2217) 135 MG/DL BUN (test code = 2208) 25 MG/DL CREATININE (test code = 2214) 0.76 MG/DL eGFR AMER. (test code 101 ML/MIN/1.73 = 80395) eGFR NON- AMER. (test 87 ML/MIN/1.73 code = 74540) SODIUM (test code = 2231) 139 MEQ/L POTASSIUM (test code = 2228) 4.7 MEQ/L CHLORIDE (test code = 2215) 99 MEQ/L CARBON DIOXIDE (test code = 26 MEQ/L 2206) CALCIUM (test code = 2209) 9.4 MG/DL LIPID [id number] 00:00:00 Test Item Value Reference Range Interpretation Comments CHOLESTEROL (test code = 2210) 262 MG/DL TRIGLYCERIDES (test code = 2232) 300 MG/DL HDL CHOLESTEROL (test code = 2220) 36 MG/DL CALC LDL CHOL (test code = 2237) 166 MG/DL RISK RATIO LDL/HDL (test code = 4.61 RATIO 2238) LIPID [id number] 00:00:00 Test Item Value Reference Range Interpretation Comments CHOLESTEROL (test code = 2210) 262 MG/DL TRIGLYCERIDES (test code = 2232) 300 MG/DL HDL CHOLESTEROL (test code = 2220) 36 MG/DL CALC LDL CHOL (test code = 2237) 166 MG/DL RISK RATIO LDL/HDL (test code = 4.61 RATIO 2238) HEMOGLOBIN [id number] 00:00:00 Test Item Value Reference Range Interpretation Comments HEMOGLOBIN A1c (test code = 16904) 6.2 % HEMOGLOBIN [id number] 00:00:00 Test Item Value Reference Range Interpretation Comments HEMOGLOBIN A1c (test code = 92257) 6.2 % HEMOGLOBIN [id number] 00:00:00 Test Item Value Reference Range Interpretation Comments HEMOGLOBIN A1c (test code = 16792) 6.2 % [id number] 00:00:00 Test Item Value Reference Range Interpretation Comments TSH, THIRD GENERATION (test code 0.988 UIU/ML = 2821) [id number] 00:00:00 Test Item Value Reference Range Interpretation Comments TSH, THIRD GENERATION (test code 0.988 UIU/ML = 2821) [id number] 00:00:00 Test Item Value Reference Range Interpretation Comments TSH, THIRD GENERATION (test code 0.988 UIU/ML = 2821) COMPREHENSIVE METABOLIC [id number] 00:00:00 Test Item Value Reference Range Interpretation Comments GLUCOSE (test code = 2217) 109 MG/DL BUN (test code = 2208) 25 MG/DL CREATININE (test code = 2214) 0.78 MG/DL eGFR AMER. (test code 98 ML/MIN/1.73 = 20862) eGFR NON- AMER. (test 84 ML/MIN/1.73 code = 31464) CALC BUN/CREAT (test code = 32 RATIO [...] code = 2219) 25 U/L COMPREHENSIVE METABOLIC [id number] 00:00:00 Test Item Value Reference Range Interpretation Comments GLUCOSE (test code = 2217) 109 MG/DL BUN (test code = 2208) 25 MG/DL CREATININE (test code = 2214) 0.78 MG/DL eGFR AMER. (test code 98 ML/MIN/1.73 = 27402) eGFR NON- AMER. (test 84 ML/MIN/1.73 code = 72548) CALC BUN/CREAT (test code = 32 RATIO [...] (test code = 2219) 25 U/L LIPID [id number] 00:00:00 Test Item Value Reference Range Interpretation Comments CHOLESTEROL (test code = 2210) 295 MG/DL TRIGLYCERIDES (test code = 2232) 218 MG/DL HDL CHOLESTEROL (test code = 2220) 46 MG/DL CALC LDL CHOL (test code = 2237) 205 MG/DL RISK RATIO LDL/HDL (test code = 4.47 RATIO 2238) LIPID [id number] 00:00:00 Test Item Value Reference Range Interpretation Comments CHOLESTEROL (test code = 2210) 295 MG/DL TRIGLYCERIDES (test code = 2232) 218 MG/DL HDL CHOLESTEROL (test code = 2220) 46 MG/DL CALC LDL CHOL (test code = 2237) 205 MG/DL RISK RATIO LDL/HDL (test code = 4.47 RATIO 2238) HEMOGLOBIN [id number] 00:00:00 Test Item Value Reference Range Interpretation Comments HEMOGLOBIN A1c (test code = 89132) 7.0 % HEMOGLOBIN [id number] 00:00:00 Test Item Value Reference Range Interpretation Comments HEMOGLOBIN A1c (test code = 44579) 7.0 % HEMOGLOBIN [id number] 00:00:00 Test Item Value Reference Range Interpretation Comments HEMOGLOBIN A1c (test code = 58015) 7.0 % [id number] 00:00:00 Test Item Value Reference Range Interpretation Comments TSH, THIRD GENERATION (test code 0.565 UIU/ML = 2821) [id number] 00:00:00 Test Item Value Reference Range Interpretation Comments TSH, THIRD GENERATION (test code 0.565 UIU/ML = 2821) [id number] 00:00:00 Test Item Value Reference Range Interpretation Comments TSH, THIRD GENERATION (test code 0.565 UIU/ML = 2821) COMPREHENSIVE METABOLIC [id number] 00:00:00 Test Item Value Reference Range Interpretation Comments GLUCOSE (test code = 2217) 109 MG/DL BUN (test code = 2208) 25 MG/DL CREATININE (test code = 2214) 0.78 MG/DL eGFR AMER. (test code 98 ML/MIN/1.73 = 32147) eGFR NON- AMER. (test 84 ML/MIN/1.73 code = 20293) CALC BUN/CREAT (test code = 32 RATIO [...] code = 2219) 25 U/L COMPREHENSIVE METABOLIC [id number] 00:00:00 Test Item Value Reference Range Interpretation Comments GLUCOSE (test code = 2217) 109 MG/DL BUN (test code = 2208) 25 MG/DL CREATININE (test code = 2214) 0.78 MG/DL eGFR AMER. (test code 98 ML/MIN/1.73 = 78099) eGFR NON- AMER. (test 84 ML/MIN/1.73 code = 50144) CALC BUN/CREAT (test code = 32 RATIO [...] (test code = 2219) 25 U/L LIPID [id number] 00:00:00 Test Item Value Reference Range Interpretation Comments CHOLESTEROL (test code = 2210) 295 MG/DL TRIGLYCERIDES (test code = 2232) 218 MG/DL HDL CHOLESTEROL (test code = 2220) 46 MG/DL CALC LDL CHOL (test code = 2237) 205 MG/DL RISK RATIO LDL/HDL (test code = 4.47 RATIO 2238) LIPID [id number] 00:00:00 Test Item Value Reference Range Interpretation Comments CHOLESTEROL (test code = 2210) 295 MG/DL TRIGLYCERIDES (test code = 2232) 218 MG/DL HDL CHOLESTEROL (test code = 2220) 46 MG/DL CALC LDL CHOL (test code = 2237) 205 MG/DL RISK RATIO LDL/HDL (test code = 4.47 RATIO 2238) HEMOGLOBIN [id number] 00:00:00 Test Item Value Reference Range Interpretation Comments HEMOGLOBIN A1c (test code = 51546) 7.0 % HEMOGLOBIN [id number] 00:00:00 Test Item Value Reference Range Interpretation Comments HEMOGLOBIN A1c (test code = 11841) 7.0 % HEMOGLOBIN [id number] 00:00:00 Test Item Value Reference Range Interpretation Comments HEMOGLOBIN A1c (test code = 00853) 7.0 % [id number] 00:00:00 Test Item Value Reference Range Interpretation Comments TSH, THIRD GENERATION (test code 0.565 UIU/ML = 2821) [id number] 00:00:00 Test Item Value Reference Range Interpretation Comments TSH, THIRD GENERATION (test code 0.565 UIU/ML = 2821) [id number] 00:00:00 Test Item Value Reference Range Interpretation Comments TSH, THIRD GENERATION (test code 0.565 UIU/ML = 2821) COMPREHENSIVE METABOLIC [id number] 00:00:00 Test Item Value Reference Range Interpretation Comments GLUCOSE (test code = 2217) 109 MG/DL BUN (test code = 2208) 25 MG/DL CREATININE (test code = 2214) 0.78 MG/DL eGFR AMER. (test code 98 ML/MIN/1.73 = 60537) eGFR NON- AMER. (test 84 ML/MIN/1.73 code = 84133) CALC BUN/CREAT (test code = 32 RATIO [...] (test code = 2219) 25 U/L LIPID [id number] 00:00:00 Test Item Value Reference Range Interpretation Comments CHOLESTEROL (test code = 2210) 295 MG/DL TRIGLYCERIDES (test code = 2232) 218 MG/DL HDL CHOLESTEROL (test code = 2220) 46 MG/DL CALC LDL CHOL (test code = 2237) 205 MG/DL RISK RATIO LDL/HDL (test code = 4.47 RATIO 2238) HEMOGLOBIN [id number] 00:00:00 Test Item Value Reference Range Interpretation Comments HEMOGLOBIN A1c (test code = 88059) 7.0 % HEMOGLOBIN [id number] 00:00:00 Test Item Value Reference Range Interpretation Comments HEMOGLOBIN A1c (test code = 41730) 7.0 % [id number] 00:00:00 Test Item Value Reference Range Interpretation Comments TSH, THIRD GENERATION (test code 0.565 UIU/ML = 2821) [id number] 00:00:00 Test Item Value Reference Range Interpretation Comments TSH, THIRD GENERATION (test code 0.565 UIU/ML = 2821) COMPREHENSIVE METABOLIC [id number] 00:00:00 Test Item Value Reference Range Interpretation Comments GLUCOSE (test code = 2217) 109 MG/DL BUN (test code = 2208) 25 MG/DL CREATININE (test code = 2214) 0.78 MG/DL eGFR AMER. (test code 98 ML/MIN/1.73 = 46556) eGFR NON- AMER. (test 84 ML/MIN/1.73 code = 04299) CALC BUN/CREAT (test code = 32 RATIO [...] code = 2219) 25 U/L COMPREHENSIVE METABOLIC [id number] 00:00:00 Test Item Value Reference Range Interpretation Comments GLUCOSE (test code = 2217) 109 MG/DL BUN (test code = 2208) 25 MG/DL CREATININE (test code = 2214) 0.78 MG/DL eGFR AMER. (test code 98 ML/MIN/1.73 = 70682) eGFR NON- AMER. (test 84 ML/MIN/1.73 code = 58151) CALC BUN/CREAT (test code = 32 RATIO [...] (test code = 2219) 25 U/L LIPID [id number] 00:00:00 Test Item Value Reference Range Interpretation Comments CHOLESTEROL (test code = 2210) 295 MG/DL TRIGLYCERIDES (test code = 2232) 218 MG/DL HDL CHOLESTEROL (test code = 2220) 46 MG/DL CALC LDL CHOL (test code = 2237) 205 MG/DL RISK RATIO LDL/HDL (test code = 4.47 RATIO 2238) LIPID [id number] 00:00:00 Test Item Value Reference Range Interpretation Comments CHOLESTEROL (test code = 2210) 295 MG/DL TRIGLYCERIDES (test code = 2232) 218 MG/DL HDL CHOLESTEROL (test code = 2220) 46 MG/DL CALC LDL CHOL (test code = 2237) 205 MG/DL RISK RATIO LDL/HDL (test code = 4.47 RATIO 2238) HEMOGLOBIN [id number] 00:00:00 Test Item Value Reference Range Interpretation Comments HEMOGLOBIN A1c (test code = 76322) 7.0 % HEMOGLOBIN [id number] 00:00:00 Test Item Value Reference Range Interpretation Comments HEMOGLOBIN A1c (test code = 82446) 7.0 % HEMOGLOBIN [id number] 00:00:00 Test Item Value Reference Range Interpretation Comments HEMOGLOBIN A1c (test code = 91182) 7.0 % [id number] 00:00:00 Test Item Value Reference Range Interpretation Comments TSH, THIRD GENERATION (test code 0.565 UIU/ML = 2821) [id number] 00:00:00 Test Item Value Reference Range Interpretation Comments TSH, THIRD GENERATION (test code 0.565 UIU/ML = 2821) [id number] 00:00:00 Test Item Value Reference Range Interpretation Comments TSH, THIRD GENERATION (test code 0.565 UIU/ML = 2821) [id number] 00:00:00 Test Item Value Reference Range Interpretation Comments TSH, THIRD GENERATION (test code 0.379 UIU/ML = 2821) [id number] 00:00:00 Test Item Value Reference Range Interpretation Comments TSH, THIRD GENERATION (test code 0.379 UIU/ML = 2821) [id number] 00:00:00 Test Item Value Reference Range Interpretation Comments TSH, THIRD GENERATION (test code 0.379 UIU/ML = 2821) [id number] 00:00:00 Test Item Value Reference Range Interpretation Comments TSH, THIRD GENERATION (test code 0.379 UIU/ML = 2821) [id number] 00:00:00 Test Item Value Reference Range Interpretation Comments TSH, THIRD GENERATION (test code 0.379 UIU/ML = 2821) [id number] 00:00:00 Test Item Value Reference Range Interpretation Comments TSH, THIRD GENERATION (test code 0.379 UIU/ML = 2821) [id number] 00:00:00 Test Item Value Reference Range Interpretation Comments TSH, THIRD GENERATION (test code 0.379 UIU/ML = 2821) [id number] 00:00:00 Test Item Value Reference Range Interpretation Comments TSH, THIRD GENERATION (test code 0.379 UIU/ML = 2821) [id number] 00:00:00 Test Item Value Reference Range Interpretation Comments TSH, THIRD GENERATION (test code 0.379 UIU/ML = 2821) [id number] 00:00:00 Test Item Value Reference Range Interpretation Comments TSH, THIRD GENERATION (test code 0.379 UIU/ML = 2821) [id number] 00:00:00 Test Item Value Reference Range Interpretation Comments TSH, THIRD GENERATION (test code 0.379 UIU/ML = 2821) CULTURE, [id number] 00:00:00 Test Item Value Reference Range Interpretation Comments CULTURE, URINE (test SPECIMEN NUMBER: code = 58707) [id number] CULTURE, [id number] 00:00:00 Test Item Value Reference Range Interpretation Comments CULTURE, URINE (test SPECIMEN NUMBER: code = 82875) [id number] CULTURE, [id number] 00:00:00 Test Item Value Reference Range Interpretation Comments CULTURE, URINE (test SPECIMEN NUMBER: code = 16036) [id number] CULTURE, [id number] 00:00:00 Test Item Value Reference Range Interpretation Comments CULTURE, URINE (test SPECIMEN NUMBER: code = 37460) [id number] CULTURE, [id number] 00:00:00 Test Item Value Reference Range Interpretation Comments CULTURE, URINE (test SPECIMEN NUMBER: code = 52879) [id number] CULTURE, [id number] 00:00:00 Test Item Value Reference Range Interpretation Comments CULTURE, URINE (test SPECIMEN NUMBER: code = 30189) [id number] CULTURE, [id number] 00:00:00 Test Item Value Reference Range Interpretation Comments CULTURE, URINE (test SPECIMEN NUMBER: code = 35481) [id number] COMPREHENSIVE METABOLIC [id number] 00:00:00 Test Item Value Reference Range Interpretation Comments GLUCOSE (test code = 2217) 128 MG/DL BUN (test code = 2208) 26 MG/DL CREATININE (test code = 2214) 0.92 MG/DL eGFR AMER. (test code 81 ML/MIN/1.73 = 61076) eGFR NON- AMER. (test 70 ML/MIN/1.73 code = 79715) CALC BUN/CREAT (test code = 28 RATIO [...] code = 2219) 29 U/L COMPREHENSIVE METABOLIC [id number] 00:00:00 Test Item Value Reference Range Interpretation Comments GLUCOSE (test code = 2217) 128 MG/DL BUN (test code = 2208) 26 MG/DL CREATININE (test code = 2214) 0.92 MG/DL eGFR AMER. (test code 81 ML/MIN/1.73 = 46949) eGFR NON- AMER. (test 70 ML/MIN/1.73 code = 29462) CALC BUN/CREAT (test code = 28 RATIO [...] code = 2219) 29 U/L ACUTE HEPATITIS [id number] 00:00:00 Test Item Value Reference Range Interpretation Comments HEPATITIS A IgM (test code = NON-REACTIVE 74026) HEPATITIS B CORE IgM (test code NON-REACTIVE = 4644) HEPATITIS B SURF AG (test code = NON-REACTIVE 2739) HEPATITIS C ANTIBODY (test code NON-REACTIVE = 4675) INTERPRETATION HEPATITIS A: (NOTE) (test code = 2552) INTERPRETATION HEPATITIS B: (NOTE) (test code = 60626) INTERPRETATION HEPATITIS C: (NOTE) (test code = 65633) ACUTE HEPATITIS [id number] 00:00:00 Test Item Value Reference Range Interpretation Comments HEPATITIS A IgM (test code = NON-REACTIVE 98988) HEPATITIS B CORE IgM (test code NON-REACTIVE = 4644) HEPATITIS B SURF AG (test code = NON-REACTIVE 2739) HEPATITIS C ANTIBODY (test code NON-REACTIVE = 4675) INTERPRETATION HEPATITIS A: (NOTE) (test code = 2552) INTERPRETATION HEPATITIS B: (NOTE) (test code = 65737) INTERPRETATION HEPATITIS C: (NOTE) (test code = 79620) [id number] 00:00:00 Test Item Value Reference Range Interpretation Comments AMYLASE (test code = 2205) 32 U/L [id number] 00:00:00 Test Item Value Reference Range Interpretation Comments AMYLASE (test code = 2205) 32 U/L [id number] 00:00:00 Test Item Value Reference Range Interpretation Comments LIPASE (test code = 2058) 22 U/L [id number] 00:00:00 Test Item Value Reference Range Interpretation Comments LIPASE (test code = 2058) 22 U/L [id number] 00:00:00 Test Item Value Reference Range Interpretation Comments LIPASE (test code = 2058) 22 U/L COMPREHENSIVE METABOLIC [id number] 00:00:00 Test Item Value Reference Range Interpretation Comments GLUCOSE (test code = 2217) 128 MG/DL BUN (test code = 2208) 26 MG/DL CREATININE (test code = 2214) 0.92 MG/DL eGFR AMER. (test code 81 ML/MIN/1.73 = 16133) eGFR NON- AMER. (test 70 ML/MIN/1.73 code = 37923) CALC BUN/CREAT (test code = 28 RATIO [...] code = 2219) 29 U/L COMPREHENSIVE METABOLIC [id number] 00:00:00 Test Item Value Reference Range Interpretation Comments GLUCOSE (test code = 2217) 128 MG/DL BUN (test code = 2208) 26 MG/DL CREATININE (test code = 2214) 0.92 MG/DL eGFR AMER. (test code 81 ML/MIN/1.73 = 75921) eGFR NON- AMER. (test 70 ML/MIN/1.73 code = 69902) CALC BUN/CREAT (test code = 28 RATIO [...] code = 2219) 29 U/L ACUTE HEPATITIS [id number] 00:00:00 Test Item Value Reference Range Interpretation Comments HEPATITIS A IgM (test code = NON-REACTIVE 13302) HEPATITIS B CORE IgM (test code NON-REACTIVE = 4644) HEPATITIS B SURF AG (test code = NON-REACTIVE 2739) HEPATITIS C ANTIBODY (test code NON-REACTIVE = 4675) INTERPRETATION HEPATITIS A: (NOTE) (test code = 2552) INTERPRETATION HEPATITIS B: (NOTE) (test code = 37069) INTERPRETATION HEPATITIS C: (NOTE) (test code = 94856) ACUTE HEPATITIS [id number] 00:00:00 Test Item Value Reference Range Interpretation Comments HEPATITIS A IgM (test code = NON-REACTIVE 80179) HEPATITIS B CORE IgM (test code NON-REACTIVE = 4644) HEPATITIS B SURF AG (test code = NON-REACTIVE 2739) HEPATITIS C ANTIBODY (test code NON-REACTIVE = 4675) INTERPRETATION HEPATITIS A: (NOTE) (test code = 2552) INTERPRETATION HEPATITIS B: (NOTE) (test code = 14168) INTERPRETATION HEPATITIS C: (NOTE) (test code = 92293) [id number] 00:00:00 Test Item Value Reference Range Interpretation Comments AMYLASE (test code = 2205) 32 U/L [id number] 00:00:00 Test Item Value Reference Range Interpretation Comments AMYLASE (test code = 2205) 32 U/L [id number] 00:00:00 Test Item Value Reference Range Interpretation Comments LIPASE (test code = 2058) 22 U/L [id number] 00:00:00 Test Item Value Reference Range Interpretation Comments LIPASE (test code = 2058) 22 U/L [id number] 00:00:00 Test Item Value Reference Range Interpretation Comments LIPASE (test code = 2058) 22 U/L COMPREHENSIVE METABOLIC [id number] 00:00:00 Test Item Value Reference Range Interpretation Comments GLUCOSE (test code = 2217) 128 MG/DL BUN (test code = 2208) 26 MG/DL CREATININE (test code = 2214) 0.92 MG/DL eGFR AMER. (test code 81 ML/MIN/1.73 = 78387) eGFR NON- AMER. (test 70 ML/MIN/1.73 code = 26697) CALC BUN/CREAT (test code = 28 RATIO [...] code = 2219) 29 U/L ACUTE HEPATITIS [id number] 00:00:00 Test Item Value Reference Range Interpretation Comments HEPATITIS A IgM (test code = NON-REACTIVE 15261) HEPATITIS B CORE IgM (test code NON-REACTIVE = 4837) HEPATITIS B SURF AG (test code = NON-REACTIVE 9819) HEPATITIS C ANTIBODY (test code NON-REACTIVE = 4684) INTERPRETATION HEPATITIS A: (NOTE) (test code = 2552) INTERPRETATION HEPATITIS B: (NOTE) (test code = 56721) INTERPRETATION HEPATITIS C: (NOTE) (test code = 52471) [id number] 00:00:00 Test Item Value Reference Range Interpretation Comments AMYLASE (test code = 2205) 32 U/L [id number] 00:00:00 Test Item Value Reference Range Interpretation Comments LIPASE (test code = 2058) 22 U/L [id number] 00:00:00 Test Item Value Reference Range Interpretation Comments LIPASE (test code = 2058) 22 U/L COMPREHENSIVE METABOLIC [id number] 00:00:00 Test Item Value Reference Range Interpretation Comments GLUCOSE (test code = 2217) 128 MG/DL BUN (test code = 2208) 26 MG/DL CREATININE (test code = 2214) 0.92 MG/DL eGFR AMER. (test code 81 ML/MIN/1.73 = 50839) eGFR NON- AMER. (test 70 ML/MIN/1.73 code = 63716) CALC BUN/CREAT (test code = 28 RATIO [...] code = 2219) 29 U/L COMPREHENSIVE METABOLIC [id number] 00:00:00 Test Item Value Reference Range Interpretation Comments GLUCOSE (test code = 2217) 128 MG/DL BUN (test code = 2208) 26 MG/DL CREATININE (test code = 2214) 0.92 MG/DL eGFR AMER. (test code 81 ML/MIN/1.73 = 53303) eGFR NON- AMER. (test 70 ML/MIN/1.73 code = 26902) CALC BUN/CREAT (test code = 28 RATIO [...] code = 2219) 29 U/L ACUTE HEPATITIS [id number] 00:00:00 Test Item Value Reference Range Interpretation Comments HEPATITIS A IgM (test code = NON-REACTIVE 37601) HEPATITIS B CORE IgM (test code NON-REACTIVE = 4644) HEPATITIS B SURF AG (test code = NON-REACTIVE 2739) HEPATITIS C ANTIBODY (test code NON-REACTIVE = 4675) INTERPRETATION HEPATITIS A: (NOTE) (test code = 2552) INTERPRETATION HEPATITIS B: (NOTE) (test code = 68134) INTERPRETATION HEPATITIS C: (NOTE) (test code = 18536) ACUTE HEPATITIS [id number] 00:00:00 Test Item Value Reference Range Interpretation Comments HEPATITIS A IgM (test code = NON-REACTIVE 14507) HEPATITIS B CORE IgM (test code NON-REACTIVE = 4644) HEPATITIS B SURF AG (test code = NON-REACTIVE 2739) HEPATITIS C ANTIBODY (test code NON-REACTIVE = 4675) INTERPRETATION HEPATITIS A: (NOTE) (test code = 2552) INTERPRETATION HEPATITIS B: (NOTE) (test code = 89427) INTERPRETATION HEPATITIS C: (NOTE) (test code = 36611) [id number] 00:00:00 Test Item Value Reference Range Interpretation Comments AMYLASE (test code = 2205) 32 U/L [id number] 00:00:00 Test Item Value Reference Range Interpretation Comments AMYLASE (test code = 2205) 32 U/L [id number] 00:00:00 Test Item Value Reference Range Interpretation Comments LIPASE (test code = 2058) 22 U/L [id number] 00:00:00 Test Item Value Reference Range Interpretation Comments LIPASE (test code = 2058) 22 U/L [id number] 00:00:00 Test Item Value Reference Range Interpretation Comments LIPASE (test code = 2058) 22 U/L [id number] 00:00:00 Test Item Value Reference Range Interpretation Comments TSH, THIRD GENERATION (test code 4.890 UIU/ML = 2821) [id number] 00:00:00 Test Item Value Reference Range Interpretation Comments TSH, THIRD GENERATION (test code 4.890 UIU/ML = 2821) [id number] 00:00:00 Test Item Value Reference Range Interpretation Comments TSH, THIRD GENERATION (test code 4.890 UIU/ML = 2821) COMPREHENSIVE METABOLIC [id number] 00:00:00 Test Item Value Reference Range Interpretation Comments GLUCOSE (test code = 2217) 121 MG/DL BUN (test code = 2208) 40 MG/DL CREATININE (test code = 2214) 1.48 MG/DL eGFR AMER. (test code 45 ML/MIN/1.73 = 11424) eGFR NON- AMER. (test 39 ML/MIN/1.73 code = 64202) CALC BUN/CREAT (test code = 27 RATIO [...] code = 2219) 20 U/L COMPREHENSIVE METABOLIC [id number] 00:00:00 Test Item Value Reference Range Interpretation Comments GLUCOSE (test code = 2217) 121 MG/DL BUN (test code = 2208) 40 MG/DL CREATININE (test code = 2214) 1.48 MG/DL eGFR AMER. (test code 45 ML/MIN/1.73 = 90953) eGFR NON- AMER. (test 39 ML/MIN/1.73 code = 39978) CALC BUN/CREAT (test code = 27 RATIO [...] ALT (test code = 2219) 20 U/L [id number] 00:00:00 Test Item Value Reference Range Interpretation Comments TSH, THIRD GENERATION (test code 4.890 UIU/ML = 2821) [id number] 00:00:00 Test Item Value Reference Range Interpretation Comments TSH, THIRD GENERATION (test code 4.890 UIU/ML = 2821) [id number] 00:00:00 Test Item Value Reference Range Interpretation Comments TSH, THIRD GENERATION (test code 4.890 UIU/ML = 2821) COMPREHENSIVE METABOLIC [id number] 00:00:00 Test Item Value Reference Range Interpretation Comments GLUCOSE (test code = 2217) 121 MG/DL BUN (test code = 2208) 40 MG/DL CREATININE (test code = 2214) 1.48 MG/DL eGFR AMER. (test code 45 ML/MIN/1.73 = 50304) eGFR NON- AMER. (test 39 ML/MIN/1.73 code = 65621) CALC BUN/CREAT (test code = 27 RATIO [...] code = 2219) 20 U/L COMPREHENSIVE METABOLIC [id number] 00:00:00 Test Item Value Reference Range Interpretation Comments GLUCOSE (test code = 2217) 121 MG/DL BUN (test code = 2208) 40 MG/DL CREATININE (test code = 2214) 1.48 MG/DL eGFR AMER. (test code 45 ML/MIN/1.73 = 63498) eGFR NON- AMER. (test 39 ML/MIN/1.73 code = 90765) CALC BUN/CREAT (test code = 27 RATIO [...] ALT (test code = 2219) 20 U/L [id number] 00:00:00 Test Item Value Reference Range Interpretation Comments TSH, THIRD GENERATION (test code 4.890 UIU/ML = 2821) [id number] 00:00:00 Test Item Value Reference Range Interpretation Comments TSH, THIRD GENERATION (test code 4.890 UIU/ML = 2821) COMPREHENSIVE METABOLIC [id number] 00:00:00 Test Item Value Reference Range Interpretation Comments GLUCOSE (test code = 2217) 121 MG/DL BUN (test code = 2208) 40 MG/DL CREATININE (test code = 2214) 1.48 MG/DL eGFR AMER. (test code 45 ML/MIN/1.73 = 27758) eGFR NON- AMER. (test 39 ML/MIN/1.73 code = 60864) CALC BUN/CREAT (test code = 27 RATIO [...] ALT (test code = 2219) 20 U/L [id number] 00:00:00 Test Item Value Reference Range Interpretation Comments TSH, THIRD GENERATION (test code 4.890 UIU/ML = 2821) [id number] 00:00:00 Test Item Value Reference Range Interpretation Comments TSH, THIRD GENERATION (test code 4.890 UIU/ML = 2821) [id number] 00:00:00 Test Item Value Reference Range Interpretation Comments TSH, THIRD GENERATION (test code 4.890 UIU/ML = 2821) COMPREHENSIVE METABOLIC [id number] 00:00:00 Test Item Value Reference Range Interpretation Comments GLUCOSE (test code = 2217) 121 MG/DL BUN (test code = 2208) 40 MG/DL CREATININE (test code = 2214) 1.48 MG/DL eGFR AMER. (test code 45 ML/MIN/1.73 = 14420) eGFR NON- AMER. (test 39 ML/MIN/1.73 code = 49442) CALC BUN/CREAT (test code = 27 RATIO [...] code = 2219) 20 U/L COMPREHENSIVE METABOLIC [id number] 00:00:00 Test Item Value Reference Range Interpretation Comments GLUCOSE (test code = 2217) 121 MG/DL BUN (test code = 2208) 40 MG/DL CREATININE (test code = 2214) 1.48 MG/DL eGFR AMER. (test code 45 ML/MIN/1.73 = 09380) eGFR NON- AMER. (test 39 ML/MIN/1.73 code = 84792) CALC BUN/CREAT (test code = 27 RATIO [...] (test code = 2219) 20 U/L LIPID [id number] 00:00:00 Test Item Value Reference Range Interpretation Comments CHOLESTEROL (test code = 2210) 261 MG/DL TRIGLYCERIDES (test code = 2232) 165 MG/DL HDL CHOLESTEROL (test code = 2220) 58 MG/DL CALC LDL CHOL (test code = 2237) 170 MG/DL RISK RATIO LDL/HDL (test code = 2.93 RATIO 2238) LIPID [id number] 00:00:00 Test Item Value Reference Range Interpretation Comments CHOLESTEROL (test code = 2210) 261 MG/DL TRIGLYCERIDES (test code = 2232) 165 MG/DL HDL CHOLESTEROL (test code = 2220) 58 MG/DL CALC LDL CHOL (test code = 2237) 170 MG/DL RISK RATIO LDL/HDL (test code = 2.93 RATIO 2238) CBC W/AUTO [id number] 00:00:00 Test Item Value Reference Range Interpretation [...] code = 1015) 378 K/UL CBC W/AUTO [id number] 00:00:00 Test Item Value Reference Range Interpretation [...] code = 1015) 378 K/UL CBC W/AUTO [id number] 00:00:00 Test Item Value Reference Range Interpretation [...] (test code = 1015) 378 K/UL HEMOGLOBIN [id number] 00:00:00 Test Item Value Reference Range Interpretation Comments HEMOGLOBIN A1c (test code = 74705) 6.4 % HEMOGLOBIN [id number] 00:00:00 Test Item Value Reference Range Interpretation Comments HEMOGLOBIN A1c (test code = 30238) 6.4 % HEMOGLOBIN [id number] 00:00:00 Test Item Value Reference Range Interpretation Comments HEMOGLOBIN A1c (test code = 93212) 6.4 % [id number] 00:00:00 Test Item Value Reference Range Interpretation Comments TSH (test code = 2821) 5.290 UIU/ML [id number] 00:00:00 Test Item Value Reference Range Interpretation Comments TSH (test code = 2821) 5.290 UIU/ML [id number] 00:00:00 Test Item Value Reference Range Interpretation Comments TSH (test code = 2821) 5.290 UIU/ML LIPID [id number] 00:00:00 Test Item Value Reference Range Interpretation Comments CHOLESTEROL (test code = 2210) 261 MG/DL TRIGLYCERIDES (test code = 2232) 165 MG/DL HDL CHOLESTEROL (test code = 2220) 58 MG/DL CALC LDL CHOL (test code = 2237) 170 MG/DL RISK RATIO LDL/HDL (test code = 2.93 RATIO 2238) LIPID [id number] 00:00:00 Test Item Value Reference Range Interpretation Comments CHOLESTEROL (test code = 2210) 261 MG/DL TRIGLYCERIDES (test code = 2232) 165 MG/DL HDL CHOLESTEROL (test code = 2220) 58 MG/DL CALC LDL CHOL (test code = 2237) 170 MG/DL RISK RATIO LDL/HDL (test code = 2.93 RATIO 2238) CBC W/AUTO [id number] 00:00:00 Test Item Value Reference Range Interpretation [...] code = 1015) 378 K/UL CBC W/AUTO [id number] 00:00:00 Test Item Value Reference Range Interpretation [...] code = 1015) 378 K/UL CBC W/AUTO [id number] 00:00:00 Test Item Value Reference Range Interpretation [...] (test code = 1015) 378 K/UL HEMOGLOBIN [id number] 00:00:00 Test Item Value Reference Range Interpretation Comments HEMOGLOBIN A1c (test code = 29695) 6.4 % HEMOGLOBIN [id number] 00:00:00 Test Item Value Reference Range Interpretation Comments HEMOGLOBIN A1c (test code = 49460) 6.4 % HEMOGLOBIN [id number] 00:00:00 Test Item Value Reference Range Interpretation Comments HEMOGLOBIN A1c (test code = 97837) 6.4 % [id number] 00:00:00 Test Item Value Reference Range Interpretation Comments TSH (test code = 2821) 5.290 UIU/ML [id number] 00:00:00 Test Item Value Reference Range Interpretation Comments TSH (test code = 2821) 5.290 UIU/ML [id number] 00:00:00 Test Item Value Reference Range Interpretation Comments TSH (test code = 2821) 5.290 UIU/ML LIPID [id number] 00:00:00 Test Item Value Reference Range Interpretation Comments CHOLESTEROL (test code = 2210) 261 MG/DL TRIGLYCERIDES (test code = 2232) 165 MG/DL HDL CHOLESTEROL (test code = 2220) 58 MG/DL CALC LDL CHOL (test code = 2237) 170 MG/DL RISK RATIO LDL/HDL (test code = 2.93 RATIO 2238) CBC W/AUTO [id number] 00:00:00 Test Item Value Reference Range Interpretation [...] code = 1015) 378 K/UL CBC W/AUTO [id number] 00:00:00 Test Item Value Reference Range Interpretation [...] (test code = 1015) 378 K/UL HEMOGLOBIN [id number] 00:00:00 Test Item Value Reference Range Interpretation Comments HEMOGLOBIN A1c (test code = 24799) 6.4 % HEMOGLOBIN [id number] 00:00:00 Test Item Value Reference Range Interpretation Comments HEMOGLOBIN A1c (test code = 99463) 6.4 % [id number] 00:00:00 Test Item Value Reference Range Interpretation Comments TSH (test code = 2821) 5.290 UIU/ML [id number] 00:00:00 Test Item Value Reference Range Interpretation Comments TSH (test code = 2821) 5.290 UIU/ML LIPID [id number] 00:00:00 Test Item Value Reference Range Interpretation Comments CHOLESTEROL (test code = 2210) 261 MG/DL TRIGLYCERIDES (test code = 2232) 165 MG/DL HDL CHOLESTEROL (test code = 2220) 58 MG/DL CALC LDL CHOL (test code = 2237) 170 MG/DL RISK RATIO LDL/HDL (test code = 2.93 RATIO 2238) LIPID [id number] 00:00:00 Test Item Value Reference Range Interpretation Comments CHOLESTEROL (test code = 2210) 261 MG/DL TRIGLYCERIDES (test code = 2232) 165 MG/DL HDL CHOLESTEROL (test code = 2220) 58 MG/DL CALC LDL CHOL (test code = 2237) 170 MG/DL RISK RATIO LDL/HDL (test code = 2.93 RATIO 2238) CBC W/AUTO [id number] 00:00:00 Test Item Value Reference Range Interpretation [...] code = 1015) 378 K/UL CBC W/AUTO [id number] 00:00:00 Test Item Value Reference Range Interpretation [...] code = 1015) 378 K/UL CBC W/AUTO [id number] 00:00:00 Test Item Value Reference Range Interpretation [...] (test code = 1015) 378 K/UL HEMOGLOBIN [id number] 00:00:00 Test Item Value Reference Range Interpretation Comments HEMOGLOBIN A1c (test code = 30415) 6.4 % HEMOGLOBIN [id number] 00:00:00 Test Item Value Reference Range Interpretation Comments HEMOGLOBIN A1c (test code = 12685) 6.4 % HEMOGLOBIN [id number] 00:00:00 Test Item Value Reference Range Interpretation Comments HEMOGLOBIN A1c (test code = 19616) 6.4 % [id number] 00:00:00 Test Item Value Reference Range Interpretation Comments TSH (test code = 2821) 5.290 UIU/ML [id number] 00:00:00 Test Item Value Reference Range Interpretation Comments TSH (test code = 2821) 5.290 UIU/ML [id number] 00:00:00 Test Item Value Reference Range Interpretation Comments TSH (test code = 2821) 5.290 UIU/ML THYROID II PROFILE (T3U, T4, T7, TSH)[id number] 00:00:00 Test Item Value Reference Range Interpretation Comments T3 UPTAKE (test code = 2817) 32.3 % T4 (THYROXINE) (test code = 5.2 UG/DL 2819) CALCULATED T7 (FTI) (test code = 1.68 5990) TSH (test code = 2821) 1.030 UIU/ML [...] code = 2821) 1.030 UIU/ML COMPREHENSIVE METABOLIC [id number] 00:00:00 Test Item Value Reference Range Interpretation Comments GLUCOSE (test code = 2217) 106 MG/DL BUN (test code = 2208) 23 MG/DL CREATININE (test code = 2214) 0.66 MG/DL eGFR AMER. (test code 114 ML/MIN/1.73 = 96606) eGFR NON- AMER. (test 99 ML/MIN/1.73 code = 50261) CALC BUN/CREAT (test code = 35 RATIO [...] code = 2219) 31 U/L COMPREHENSIVE METABOLIC [id number] 00:00:00 Test Item Value Reference Range Interpretation Comments GLUCOSE (test code = 2217) 106 MG/DL BUN (test code = 2208) 23 MG/DL CREATININE (test code = 2214) 0.66 MG/DL eGFR AMER. (test code 114 ML/MIN/1.73 = 48984) eGFR NON- AMER. (test 99 ML/MIN/1.73 code = 43237) CALC BUN/CREAT (test code = 35 RATIO [...] code = 2821) 0.335 UIU/ML COMPREHENSIVE METABOLIC [id number] 00:00:00 Test Item Value Reference Range Interpretation Comments GLUCOSE (test code = 2217) 106 MG/DL BUN (test code = 2208) 23 MG/DL CREATININE (test code = 2214) 0.66 MG/DL eGFR AMER. (test code 114 ML/MIN/1.73 = 43412) eGFR NON- AMER. (test 99 ML/MIN/1.73 code = 40344) CALC BUN/CREAT (test code = 35 RATIO [...] code = 2219) 31 U/L COMPREHENSIVE METABOLIC [id number] 00:00:00 Test Item Value Reference Range Interpretation Comments GLUCOSE (test code = 2217) 106 MG/DL BUN (test code = 2208) 23 MG/DL CREATININE (test code = 2214) 0.66 MG/DL eGFR AMER. (test code 114 ML/MIN/1.73 = 68226) eGFR NON- AMER. (test 99 ML/MIN/1.73 code = 37359) CALC BUN/CREAT (test code = 35 RATIO [...] CALCULATED T7 (FTI) (test code = 1.71 4660) TSH (test code = 2821) 0.335 UIU/ML THYROID II PROFILE (T3U, T4, T7, TSH)[id number] 00:00:00 Test Item Value Reference Range Interpretation Comments T3 UPTAKE (test code = 2817) 31.6 % T4 (THYROXINE) (test code = 5.4 UG/DL 281) CALCULATED T7 (FTI) (test code = 1.71 2820) TSH (test code = 2821) 0.335 UIU/ML COMPREHENSIVE METABOLIC [id number] 00:00:00 Test Item Value Reference Range Interpretation Comments GLUCOSE (test code = 2217) 106 MG/DL BUN (test code = 2208) 23 MG/DL CREATININE (test code = 2214) 0.66 MG/DL eGFR AMER. (test code 114 ML/MIN/1.73 = 22776) eGFR NON- AMER. (test 99 ML/MIN/1.73 code = 11202) CALC BUN/CREAT (test code = 35 RATIO [...] code = 2821) 0.335 UIU/ML COMPREHENSIVE METABOLIC [id number] 00:00:00 Test Item Value Reference Range Interpretation Comments GLUCOSE (test code = 2217) 106 MG/DL BUN (test code = 2208) 23 MG/DL CREATININE (test code = 2214) 0.66 MG/DL eGFR AMER. (test code 114 ML/MIN/1.73 = 16783) eGFR NON- AMER. (test 99 ML/MIN/1.73 code = 60770) CALC BUN/CREAT (test code = 35 RATIO [...] code = 2219) 31 U/L COMPREHENSIVE METABOLIC [id number] 00:00:00 Test Item Value Reference Range Interpretation Comments GLUCOSE (test code = 2217) 106 MG/DL BUN (test code = 2208) 23 MG/DL CREATININE (test code = 2214) 0.66 MG/DL eGFR AMER. (test code 114 ML/MIN/1.73 = 53869) eGFR NON- AMER. (test 99 ML/MIN/1.73 code = 85386) CALC BUN/CREAT (test code = 35 RATIO [...] code = 2821) 0.335 UIU/ML COMPREHENSIVE METABOLIC [id number] 00:00:00 Test Item Value Reference Range Interpretation Comments GLUCOSE (test code = 2217) 103 MG/DL BUN (test code = 2208) 15 MG/DL CREATININE (test code = 2214) 0.77 MG/DL eGFR AMER. (test code 101 ML/MIN/1.73 = 78986) eGFR NON- AMER. (test 87 ML/MIN/1.73 code = 90164) CALC BUN/CREAT (test code = 19 RATIO [...] code = 2219) 24 U/L COMPREHENSIVE METABOLIC [id number] 00:00:00 Test Item Value Reference Range Interpretation Comments GLUCOSE (test code = 2217) 103 MG/DL BUN (test code = 2208) 15 MG/DL CREATININE (test code = 2214) 0.77 MG/DL eGFR AMER. (test code 101 ML/MIN/1.73 = 86568) eGFR NON- AMER. (test 87 ML/MIN/1.73 code = 05313) CALC BUN/CREAT (test code = 19 RATIO [...] code = 2821) 0.424 UIU/ML COMPREHENSIVE METABOLIC [id number] 00:00:00 Test Item Value Reference Range Interpretation Comments GLUCOSE (test code = 2217) 103 MG/DL BUN (test code = 2208) 15 MG/DL CREATININE (test code = 2214) 0.77 MG/DL eGFR AMER. (test code 101 ML/MIN/1.73 = 81073) eGFR NON- AMER. (test 87 ML/MIN/1.73 code = 05114) CALC BUN/CREAT (test code = 19 RATIO [...] code = 2219) 24 U/L COMPREHENSIVE METABOLIC [id number] 00:00:00 Test Item Value Reference Range Interpretation Comments GLUCOSE (test code = 2217) 103 MG/DL BUN (test code = 2208) 15 MG/DL CREATININE (test code = 2214) 0.77 MG/DL eGFR AMER. (test code 101 ML/MIN/1.73 = 45638) eGFR NON- AMER. (test 87 ML/MIN/1.73 code = 42310) CALC BUN/CREAT (test code = 19 RATIO [...] code = 2821) 0.424 UIU/ML COMPREHENSIVE METABOLIC [id number] 00:00:00 Test Item Value Reference Range Interpretation Comments GLUCOSE (test code = 2217) 103 MG/DL BUN (test code = 2208) 15 MG/DL CREATININE (test code = 2214) 0.77 MG/DL eGFR AMER. (test code 101 ML/MIN/1.73 = 97823) eGFR NON- AMER. (test 87 ML/MIN/1.73 code = 35316) CALC BUN/CREAT (test code = 19 RATIO [...] code = 2821) 0.424 UIU/ML COMPREHENSIVE METABOLIC [id number] 00:00:00 Test Item Value Reference Range Interpretation Comments GLUCOSE (test code = 2217) 103 MG/DL BUN (test code = 2208) 15 MG/DL CREATININE (test code = 2214) 0.77 MG/DL eGFR AMER. (test code 101 ML/MIN/1.73 = 60092) eGFR NON- AMER. (test 87 ML/MIN/1.73 code = 54134) CALC BUN/CREAT (test code = 19 RATIO [...] code = 2219) 24 U/L COMPREHENSIVE METABOLIC [id number] 00:00:00 Test Item Value Reference Range Interpretation Comments GLUCOSE (test code = 2217) 103 MG/DL BUN (test code = 2208) 15 MG/DL CREATININE (test code = 2214) 0.77 MG/DL eGFR AMER. (test code 101 ML/MIN/1.73 = 37268) eGFR NON- AMER. (test 87 ML/MIN/1.73 code = 46206) CALC BUN/CREAT (test code = 19 RATIO [...] (test code = 2821) 0.424 UIU/ML CULTURE, [id number] 00:00:00 Test Item Value Reference Range Interpretation Comments CULTURE, URINE (test SPECIMEN NUMBER: code = 71290) [id number] CULTURE, [id number] 00:00:00 Test Item Value Reference Range Interpretation Comments CULTURE, URINE (test SPECIMEN NUMBER: code = 25167) [id number] CULTURE, [id number] 00:00:00 Test Item Value Reference Range Interpretation Comments CULTURE, URINE (test SPECIMEN NUMBER: code = 38469) [id number] CULTURE, [id number] 00:00:00 Test Item Value Reference Range Interpretation Comments CULTURE, URINE (test SPECIMEN NUMBER: code = 22634) [id number] CULTURE, [id number] 00:00:00 Test Item Value Reference Range Interpretation Comments CULTURE, URINE (test SPECIMEN NUMBER: code = 30486) [id number] CULTURE, [id number] 00:00:00 Test Item Value Reference Range Interpretation Comments CULTURE, URINE (test SPECIMEN NUMBER: code = 54080) [id number] CULTURE, [id number] 00:00:00 Test Item Value Reference Range Interpretation Comments CULTURE, URINE (test SPECIMEN NUMBER: code = 97285) [id number] CULTURE, [id number] 00:00:00 Test Item Value Reference Range Interpretation Comments CULTURE, URINE (test SPECIMEN NUMBER: code = 41408) [id number] CULTURE, [id number] 00:00:00 Test Item Value Reference Range Interpretation Comments CULTURE, URINE (test SPECIMEN NUMBER: code = 71893) [id number] CULTURE, [id number] 00:00:00 Test Item Value Reference Range Interpretation Comments CULTURE, URINE (test SPECIMEN NUMBER: code = 41892) [id number] CULTURE, [id number] 00:00:00 Test Item Value Reference Range Interpretation Comments CULTURE, URINE (test SPECIMEN NUMBER: code = 27041) [id number] CULTURE, [id number] 00:00:00 Test Item Value Reference Range Interpretation Comments CULTURE, URINE (test SPECIMEN NUMBER: code = 33458) [id number] CULTURE, [id number] 00:00:00 Test Item Value Reference Range Interpretation Comments CULTURE, URINE (test SPECIMEN NUMBER: code = 32319) [id number] CULTURE, [id number] 00:00:00 Test Item Value Reference Range Interpretation Comments CULTURE, URINE (test SPECIMEN NUMBER: code = 70986) [id number]
[2022-05-17] MEDS ORDERED: ONDANSETRON 4 MG/2 ML VIAL ONE (12:24)
[2022-05-17] MEDS ORDERED: NA CHLORIDE 0.9% 1,000 ML ONE (12:24)
[2022-05-17 13:02] LABS: Absolute Lymphocytes (CBC) 1.4 K/uL (0.7-4.9); Hematocrit 34.8 % (36.0-45.0); Lymphocytes % 22.1 % (15.3-44.8); MCV 92.1 fL (80-100); MPV 6.6 fL (7.6-11.3); RBC Red Blood Cell Count 3.78 M/uL (3.86-4.86)
[2022-05-17 13:14] LABS: Albumin 3.5 g/dL (3.4-5.0); Bilirubin Total 0.1 mg/dL (0.2-1.0); Potassium 3.6 mmol/L (3.5-5.1); Protein, Total 7.4 g/dL (6.4-8.2)
[2022-05-17] MEDS ORDERED: cloNIDine HCL 0.1 MG TAB ONE (13:22)
[2022-05-17 14:30] VITALS: BP 160/92; TEMP 97.7; O2SAT 98
--- NOTE | 2022-05-19 13:07 | EKG ---
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
--- NOTE | 2022-05-30 16:24 | ER ---
Nurse's Notes [facility] Name: Jaimie Amanda Age: 61 yrs Sex: Female : 1960 Arrival Date: 05/17/2022 Time: 12:02 Bed 20 Private MD: Diagnosis: Nausea with vomiting, unspecified Presentation: 05/17 12:02 Chief complaint: EMS states: client had dental work about a week ago and is now having kc6 pain with n/v. BGL en route 113. 4mg intranasal zofran given en route. Coronavirus screen: Vaccine status: Patient reports receiving the 2nd dose of the covid vaccine. At this time, the client does not indicate any symptoms associated with coronavirus-19. Ebola Screen: No symptoms or risks identified at this time. Initial Sepsis Screen: Does the patient meet any 2 criteria? No. Patient's initial sepsis screen is negative. Does the patient have a suspected source of infection? No. Patient's initial sepsis screen is negative. Risk Assessment: Do you want to hurt yourself or someone else? Patient reports no desire to harm self or others. Onset of symptoms was May 17, 2022. 12:02 Method Of Arrival: EMS: [facility] kc6 12:02 Acuity: ZHEN 3 kc6 Triage Assessment: 12:04 General: Appears in no apparent distress. comfortable, ill, Behavior is calm, kc6 cooperative, appropriate for age. Pain: Complains of pain in right upper quadrant and right lower quadrant Pain does not radiate. Is continuous. EENT: No signs and/or symptoms were reported regarding the EENT system. Neuro: Jorgensen Agitation-Sedation Scale (RASS): 0 - Alert and Calm Level of Consciousness is awake, alert, obeys commands, Oriented to person, place, time, situation, Appropriate for age. Cardiovascular: Capillary refill < 3 seconds. Respiratory: Airway is patent Trachea midline Respiratory effort is even, unlabored, Respiratory pattern is regular, symmetrical. GI: Abdomen is flat, non-distended, Bowel sounds present X 4 quads. Abd is soft X 4 quads Abdomen is tender to palpation in right upper quadrant and right lower quadrant Reports lower abdominal pain, upper abdominal pain, nausea, vomiting. : No signs and/or symptoms were reported regarding the genitourinary system. Derm: No signs and/or symptoms reported regarding the dermatologic system. Skin is intact, Skin is pink, warm \T\ dry. Musculoskeletal: No signs and/or symptoms reported regarding the musculoskeletal system. Circulation, motion, and sensation intact. Capillary refill < 3 seconds, Range of motion: intact in all extremities. Historical: - Allergies: 12:04 No Known Allergies; [facility] - Home Meds: 12:04 levothyroxine [Active]; [facility] - PMHx: 12:04 Anxiety; Chronic Abdominal Pain; Hypertensive disorder; Hypothyroidism; low NA; NIDDM; [facility] - PSHx: 12:04 Thyroidectomy; [facility] - Immunization history:: Client reports receiving the 2nd dose of the Covid vaccine, Flu vaccine is not up to date. - Social history:: Smoking status: Patient reports the use of cigarette tobacco products, smokes one pack cigarettes per day. - Family history:: not pertinent. Screenin:06 [facility] ED Fall Risk Assessment (Adult) History of falling in the last 3 months, [facility] including since admission No falls in past 3 months (0 pts) Confusion or Disorientation No (0 pts) Intoxicated or Sedated No (0 pts) Impaired Gait Yes (1 pt) Mobility Assist Device Used No (0 pt) Altered Elimination No (0 pt) Score/Fall Risk Level 0 - 2 = Low Risk Oriented to surroundings, Maintained a safe environment, Educated pt \T\ family on fall prevention, incl call for assistance when getting out of bed, Assessed \T\ reinforced patient's understanding of fall precautions, Hourly rounding (assess needs \T\ fall precautionary measures) done. Abuse screen: Denies threats or abuse. Denies injuries from another. Nutritional screening: No deficits noted. Tuberculosis screening: No symptoms or risk factors identified. Vital Signs: 12:02 BP 160 / 92; Pulse 83; Resp 17 S; Temp 97.7(O); Pulse Ox 98% on R/A; Weight 70.31 kg [facility] (R); Height 5 ft. 5 in. (R); 12:02 Body Mass Index 25.79 (70.31 kg, 165.1 cm) [facility] ED Course: 12:02 Patient arrived in ED. [facility] 12:04 Triage completed. [facility] 12:04 Arm band placed on. [facility] 12:06 Patient has correct armband on for positive identification. Bed in low position. Call [facility] light in reach. Side rails up X2. 12:11 Jey White MD is Attending Physician. rt 12:18 Kelly Beavers RN is Primary Nurse. kc6 12:38 Inserted saline lock: 22 gauge in right antecubital area, using aseptic technique. kc6 Blood collected. 13:33 No provider procedures requiring assistance completed. IV discontinued, intact, kc6 bleeding controlled, No redness/swelling at site. Pressure dressing applied. Administered Medications: 12:38 Drug: NS 0.9% IV 1000 ml Route: IV; Rate: 1 bolus; Site: right antecubital; kc6 13:33 Follow up: Response: No adverse reaction; IV Status: Completed infusion; IV Intake: kc6 1000ml 12:38 Drug: Ondansetron IVP 4 mg Route: IVP; Site: right antecubital; kc6 13:33 Follow up: Response: No adverse reaction; Nausea is decreased kc6 13:20 Drug: cloNIDine PO 0.1 mg Route: PO; kc6 13:33 Follow up: Response: No adverse reaction kc6 Medication: 13:34 VIS not applicable for this client. kc6 Intake: 13:33 IV: 1000ml; Total: 1000ml. kc6 Outcome: 13:28 Discharge ordered by MD. rt 13:33 Discharged to home ambulatory, with family. kc6 13:33 Condition: stable 13:33 Discharge instructions given to patient, family, Instructed on discharge instructions, follow up and referral plans. Demonstrated understanding of instructions, follow-up care. 13:34 Patient left the ED. kc6 Signatures: Kelly Beavers RN RN kc6 Jey White MD MD rt
--- NOTE | 2022-05-30 16:25 | EDPHYS ---
Physician Documentation [facility] Name: Jaimie Amanda Age: 61 yrs Sex: Female : 1960 Arrival Date: 05/17/2022 Time: 12:02 Bed 20 Private MD: [place] Physician Jey White HPI: 05/17 12:29 This 61 yrs old Female presents to ER via EMS with complaints of Nausea/Vomiting. rt 12:29 The patient presents to the emergency department with nausea, vomiting. Patient rt presents to the ED with about 1 week of nausea, vomiting. She states that this occurred after she had dental surgery. She has taken Zofran at home to modest relief. She states that she feels weak and dizzy making it difficult for her to walk. This is what prompted her to come in today. She denies other acute complaints at this time, symptoms are moderate severity, no other aggravating or alleviating factors.. Historical: - Allergies: 12:04 No Known Allergies; kc6 - Home Meds: 12:04 levothyroxine [Active]; kc6 - PMHx: 12:04 Anxiety; Chronic Abdominal Pain; Hypertensive disorder; Hypothyroidism; low NA; NIDDM; kc6 - PSHx: 12:04 Thyroidectomy; kc6 - Immunization history:: Client reports receiving the 2nd dose of the Covid vaccine, Flu vaccine is not up to date. - Social history:: Smoking status: Patient reports the use of cigarette tobacco products, smokes one pack cigarettes per day. - Family history:: not pertinent. ROS: 12:29 Constitutional: Negative for fever, chills, and weight loss, Cardiovascular: Negative rt for chest pain, palpitations, and edema, Respiratory: Negative for shortness of breath, cough, wheezing, and pleuritic chest pain, MS/Extremity: Negative for injury and deformity, Skin: Negative for injury, rash, and discoloration, Neuro: Negative for headache, weakness, numbness, tingling, and seizure, Psych: Negative for depression, anxiety, suicide ideation, homicidal ideation, and hallucinations. 12:29 Abdomen/GI: Positive for nausea, vomiting. Exam: 12:29 Constitutional: This is a well developed, well nourished patient who is awake, alert, rt and in no acute distress. Head/Face: Normocephalic, atraumatic. Chest/axilla: Normal chest wall appearance and motion. Nontender with no deformity. No lesions are appreciated. Cardiovascular: Regular rate and rhythm with a normal S1 and S2. No gallops, murmurs, or rubs. Normal PMI, no JVD. No pulse deficits. Respiratory: Lungs have equal breath sounds bilaterally, clear to auscultation and percussion. No rales, rhonchi or wheezes noted. No increased work of breathing, no retractions or nasal flaring. Abdomen/GI: Soft, non-tender, with normal bowel sounds. No distension or tympany. No guarding or rebound. No evidence of tenderness throughout. Skin: Warm, dry with normal turgor. Normal color with no rashes, no lesions, and no evidence of cellulitis. MS/ Extremity: Pulses equal, no cyanosis. Neurovascular intact. Full, normal range of motion. Neuro: Awake and alert, GCS 15, oriented to person, place, time, and situation. Cranial nerves II-XII grossly intact. Motor strength 5/5 in all extremities. Sensory grossly intact. Cerebellar exam normal. Normal gait. Psych: Awake, alert, with orientation to person, place and time. Behavior, mood, and affect are within normal limits. 12:37 ECG was reviewed by the Attending Physician. rt Vital Signs: 12:02 BP 160 / 92; Pulse 83; Resp 17 S; Temp 97.7(O); Pulse Ox 98% on R/A; Weight 70.31 kg kc6 (R); Height 5 ft. 5 in. (R); 12:02 Body Mass Index 25.79 (70.31 kg, 165.1 cm) [facility] MDM: 12:11 Patient medically screened. rt 13:29 Differential diagnosis: Electrolyte disturbance, nausea, vomiting, gastroenteritis, rt pancreatitis. Data reviewed: vital signs, nurses notes, lab test result(s), EKG. Consideration of Admission/Observation Escalation of care including admission/observation considered. Test considered but Not performed: CT: Benign abdominal examination, multiple CT scans previously, risk of further radiation greater than risk of missed surgical pathology.. Care significantly affected by the following chronic conditions: Hyponatremia. Counseling: I had a detailed discussion with the patient and/or guardian regarding: the historical points, exam findings, and any diagnostic results supporting the discharge/admit diagnosis, lab results, the need for outpatient follow up. Response to treatment: the patient's symptoms have resolved after treatment. 05/17 12:17 Order name: CBC with Diff; Complete Time: 13:21 rt 05/17 12:17 Order name: CMP; Complete Time: 13:21 rt 05/17 12:17 Order name: Troponin High Sensitivity; Complete Time: 13:21 rt 05/17 12:17 Order name: Lipase; Complete Time: 13:21 rt 05/17 12:17 Order name: EKG; Complete Time: 12:51 rt 05/17 12:17 Order name: EKG - Nurse/Tech; Complete Time: 12:38 rt EC:37 Rate is 77 beats/min. Rhythm is regular, Normal Sinus Rhythm with No ectopy. QRS [place] rt is Normal. OK interval is normal. QRS interval is normal. QT interval is normal. Clinical impression: NSR w/ Non-specific ST/T Changes. Administered Medications: 12:38 Drug: NS 0.9% IV 1000 ml Route: IV; Rate: 1 bolus; Site: right antecubital; 6 13:33 Follow up: Response: No adverse reaction; IV Status: Completed infusion; IV Intake: kc6 1000ml 12:38 Drug: Ondansetron IVP 4 mg Route: IVP; Site: right antecubital; 6 13:33 Follow up: Response: No adverse reaction; Nausea is decreased 6 13:20 Drug: cloNIDine PO 0.1 mg Route: PO; kc6 13:33 Follow up: Response: No adverse reaction [facility] Disposition Summary: 05/17/22 13:28 Discharge Ordered Location: Home rt Problem: an ongoing problem rt Symptoms: have improved rt Condition: Stable rt Diagnosis - Nausea with vomiting, unspecified rt Followup: rt - With: Private Physician - When: 2 - 3 days - Reason: Discharge Instructions: - Discharge Summary Sheet rt - Nausea and Vomiting, Adult rt Forms: - Medication Reconciliation Form rt - Thank You Letter rt - Antibiotic Education rt - Prescription Opioid Use rt Signatures: Dispatcher [employer] Kelly Engel RN RN kc6 Jey White MD MD rt
== END 2022-05-17 13:34 | disposition home or self-care (01) ==
LOC: ER 11:56
DX: R11.2 Nausea with vomiting, unspecified (principal); R53.1 Weakness; R42 Dizziness and giddiness; E03.9 Hypothyroidism, unspecified; F17.210 Nicotine dependence, cigarettes, uncomplicated
CPT/HCPCS: 96361; 93005; 85025; 36415; 84484; 83690; 80053; 96374; 99284; J2405; J7030

== ENCOUNTER 2022-05-18 08:53 | Emergency (ER) | payer OTHER ==
--- OUTSIDE RECORDS SUMMARY | 2022-05-18 09:08 | XMS REPORT | Continuity of Care Document ---
:1960 Author Organization [facility] t Address [address] [place] [address] [place] [address] Care Team Providers Name Role Phone [facility]pless Primary Care Physician MATT SIMPSON Attending Clinician Unavailable MATT SIMPSON Attending Clinician Unavailable Doctor Unassigned, [place] Attending Clinician Unavailable WALLY KRISHNAMURTHY Attending Clinician Unavailable Natacha Brewster Attending Clinician Payers Payer Name Policy Type Policy Number Effective Date Expiration Date Sarina castelan [facility] [id number] 2017 00:00:00 PLUS Problems This patient has [...] ers OPHEN INGREDI 07-27 ity of 00:00: [place] [facility] Propensi Inactiv Reductas ty to e 2-28 e adverse 00:00: Inhibito reaction 00 rs to drug Nitrogly Propensi Active 2017-03 cerin ty to 1-08 adverse 00:00: reaction 00 to drug Social History Social Habit Start Date Stop Date Quantity Comments Source Alcohol intake 2016-05-01 2016-05-01 Current [facility] es 00:00:00 00:00:00 non-drinker of Medical nter alcohol (finding) Sex Assigned At [birth year] [facility] 00:00:00 00:00:00 [facility] Smoking Status Start Date Stop Date Source Current every day smoker 2016-05-01 00:00:00 [facility] Medications Ordered Filled Start Stop Current [...] [facility]:23: nightly. [address] PARoxetine 2017-0 Yes 40mg QD Take [address] (PAXIL) 40 2-23 by [facility] 10:23: nightly. [address] OXcarbazepi 2017-0 Yes 600mg Q.[id number] Take [address] [facility] [address] ne 2-23 [id number] [facility] by [facility] (TRILEPTAL) 10:23: 3D mouth 3 Med ical 600 [facility] 59 (three) Center tablet times daily. PARoxetine 2017-0 Yes 40mg QD Take [address] (PAXIL) 40 2-23 by [facility] 10:23: nightly. [address] OXcarbazepi 2017-0 Yes 600mg Q.78649279 Take [address] ne 2-23 [id number] [facility] (TRILEPTAL) 10:23: 3D mouth 3 Med ical 600 MG 59 (three) Center tablet times daily. PARoxetine 2017-0 Yes 40mg QD Take [address] (PAXIL) 40 2-23 [facility] 10:23: nightly. [address] 2017-0 Yes 600mg Q.41874458 Take [address] ne 2-23 [id number] [facility] (TRILEPTAL) 10:23: 3D mouth 3 Med ical 600 MG 59 (three) Center tablet times daily. PARoxetine 2017-0 Yes 40mg QD Take [address] (PAXIL) 40 2-23 by [facility] 10:23: nightly. [address] 2017-0 Yes 600mg Q.27524566 Take [address] ne 2-23 [id number] [facility] (TRILEPTAL) 10:23: 3D mouth 3 Med ical 600 MG 59 (three) Center tablet times daily. PARoxetine 2017-0 Yes 40mg QD Take [address] (PAXIL) 40 2-23 by [facility] 10:23: nightly. [address] OXcarbazepi 2017-0 Yes 600mg Q.29661476 Take [address] ne 2-23 [id number] [facility] (TRILEPTAL) 10:23: 3D mouth 3 Med ical 600 MG 59 (three) Center tablet times daily. PARoxetine 2017-0 Yes 40mg QD Take [address] (PAXIL) 40 2-23 [facility] 10:23: nightly. [address] 2017-0 Yes 600mg Q.80013834 Take [address] ne 2-23 [id number] [facility] (TRILEPTAL) 10:23: 3D mouth 3 Med ical 600 MG 59 (three) Center tablet times daily. PARoxetine 2017-0 Yes 40mg QD Take [address] (PAXIL) 40 2-23 by [facility] 10:23: nightly. [address] OXcarbazepi 2017-0 Yes 600mg Q.03300779 Take [address] ne 2-23 [id number] [facility] (TRILEPTAL) 10:23: 3D mouth 3 Med ical 600 MG 59 (three) Center tablet times daily. PARoxetine 2017-0 Yes 40mg QD Take [address] (PAXIL) 40 2-23 [facility] 10:23: nightly. [address] OXcarbazepi 2017-0 Yes 600mg Q.84729426 Take [address] ne 2-23 [id number] [facility] (TRILEPTAL) 10:23: 3D mouth 3 Med ical 600 MG 59 (three) Center tablet times daily. OXcarbazepi 2017-0 Yes 600mg Q.62508896 Take [address] ne 2-23 [id number] [facility] (TRILEPTAL) 10:23: 3D mouth 3 Med ical 600 MG 59 (three) Center tablet times daily. PARoxetine 2017-0 Yes 40mg QD Take [address] (PAXIL) 40 2-23 by [facility] 10:23: nightly. [address] OXcarbazepi 2017-0 Yes 600mg Q.81356408 Take [address] ne 2-23 [id number] [facility] (TRILEPTAL) 10:23: 3D mouth 3 Med ical 600 MG 59 (three) Center tablet times daily. PARoxetine 2017-0 Yes 40mg QD Take [address] (PAXIL) 40 2-23 by [facility] 10:23: nightly. [address] OXcarbazepi 2017-0 Yes 600mg Q.69615491 Take [address] ne 2-23 [id number] [facility] (TRILEPTAL) 10:23: 3D mouth 3 Med ical 600 MG 59 (three) Center tablet times daily. PARoxetine 2017-0 Yes 40mg QD Take [address] (PAXIL) 40 2-23 by [facility] 10:23: nightly. [address] OXcarbazepi 2017-0 Yes 600mg Q.91660825 Take [address] ne 2-23 [id number] [facility] (TRILEPTAL) 10:23: 3D mouth 3 Med ical 600 MG 59 (three) Center tablet times daily. PARoxetine 2017-0 Yes 40mg QD Take [address] (PAXIL) 40 2-23 by [facility] 10:23: nightly. [address] PARoxetine 2017-0 Yes 40mg QD Take [address] (PAXIL) 40 2-23 [facility] 10:23: nightly. [address] OXcarbazepi 2017-0 Yes 600mg Q.64092642 Take [address] ne 2-23 [id number] [facility] (TRILEPTAL) 10:23: 3D mouth 3 Med ical 600 MG 59 (three) Center tablet times daily. PARoxetine 2017-0 Yes 40mg QD Take [address] (PAXIL) 40 2-23 by [facility] 10:23: nightly. [address] 2017-0 Yes 600mg Q.75830836 Take [address] ne 2-23 [id number] [facility] (TRILEPTAL) 10:23: 3D mouth 3 Med ical 600 MG 59 (three) Center tablet times daily. PARoxetine 2017-0 Yes 40mg QD Take [address] (PAXIL) 40 2-23 by [facility] 10:23: nightly. [address] OXcarbazepi 2017-0 Yes 600mg Q.09905648 Take [address] ne 2-23 [id number] [facility] (TRILEPTAL) 10:23: 3D mouth 3 Med ical 600 MG 59 (three) Center tablet times daily. PARoxetine 2017-0 Yes 40mg QD Take [address] (PAXIL) 40 2-23 by [facility] 10:23: nightly. [address] OXcarbazepi 2017-0 Yes 600mg Q.45800952 Take [address] ne 2-23 [id number] [facility] (TRILEPTAL) 10:23: 3D mouth 3 Med ical 600 MG 59 (three) Center tablet times daily. PARoxetine 2017-0 Yes 40mg QD Take [address] (PAXIL) 40 2-23 by [facility] 10:23: nightly. [facility] anjelica [address] OXcarbazepi 2017-0 Yes 600mg Q.10033883 Take [address] ne 2-23 [id number] [facility] (TRILEPTAL) 10:23: 3D mouth 3 Med ical 600 MG 59 (three) Center tablet times daily. PARoxetine 2017-0 Yes 40mg QD Take [address] (PAXIL) 40 2-23 by [facility] 10:23: nightly. [facility] anjelica [address] OXcarbazepi 2017-0 Yes 600mg Q.28993223 Take [address] ne 2-23 [id number] [facility] by [facility] (TRILEPTAL) 10:23: 3D mouth 3 Med ical 600 MG 59 (three) Center tablet times daily. PARoxetine 2017-0 Yes 40mg QD Take [address] (PAXIL) 40 2-23 by [facility] 10:23: nightly. [facility] anjelica [address] OXcarbazepi 2017-0 Yes 600mg Q.81442965 Take [address] ne 2-23 [id number] mg by [facility] (TRILEPTAL) 10:23: 3D mouth 3 Med ical 600 MG 59 (three) Center tablet times daily. PARoxetine 2017-0 Yes 40mg QD Take [address] (PAXIL) 40 2-23 by [facility] 10:23: nightly. [facility] [address] OXcarbazepi 2017-0 Yes 600mg Q.49467039 Take [address] ne 2-23 [id number] [facility] (TRILEPTAL) 10:23: 3D mouth 3 Med ical 600 MG 59 (three) Center tablet times daily. PARoxetine 2017-0 Yes 40mg QD Take [address] (PAXIL) 40 2-23 by [facility] 10:23: nightly. [address] OXcarbazepi 2017-0 Yes 600mg Q.26449194 Take [address] ne 2-23 [id number] [facility] (TRILEPTAL) 10:23: 3D mouth 3 Med ical 600 MG 59 (three) Center tablet times daily. PARoxetine 2017-0 Yes 40mg QD Take [address] (PAXIL) 40 2-23 by [facility] 10:23: nightly. [address] OXcarbazepi 2017-0 Yes 600mg Q.65408175 Take [address] ne 2-23 [id number] [facility] (TRILEPTAL) 10:23: 3D mouth 3 Med ical 600 MG 59 (three) Center tablet times daily. PARoxetine 2017-0 Yes 40mg QD Take [address] (PAXIL) 40 2-23 by [facility] 10:23: nightly. [address] OXcarbazepi 2017-0 Yes 600mg Q.21165022 Take [address] ne 2-23 [id number] [facility] (TRILEPTAL) 10:23: 3D mouth 3 Med ical 600 MG 59 (three) Center tablet times daily. PARoxetine 2017-0 Yes 40mg QD Take [address] (PAXIL) 40 2-23 by [facility] 10:23: nightly. [address] OXcarbazepi 2017-0 Yes 600mg Q.17900040 Take [address] ne 2-23 [id number] [facility] (TRILEPTAL) 10:23: 3D mouth 3 Med ical 600 MG 59 (three) Center tablet times daily. PARoxetine 2017-0 Yes 40mg QD Take [address] (PAXIL) 40 2-23 by [facility] 10:23: nightly. [address] OXcarbazepi 2017-0 Yes 600mg Q.91565173 Take [address] ne 2-23 [id number] [facility] by [facility] (TRILEPTAL) 10:23: 3D mouth 3 Med ical 600 MG 59 (three) Center tablet times daily. OXcarbazepi 2017-0 Yes 600mg Q.81170826 Take [address] ne 2-23 6968079936 [facility] (TRILEPTAL) 10:23: 3D mouth 3 Med ical 600 [facility] 59 (three) Center tablet times daily. PARoxetine 2017-0 Yes 40mg QD Take [address] (PAXIL) 40 2-23 by mouth [facility] tablet 10:23: nightly. [facility] [address] OXcarbazepi 2017-0 Yes 600mg Q.75785545 Take [address] ne 2-23 [id number] [facility] by [facility] (TRILEPTAL) 10:23: 3D mouth 3 Med ical 600 MG 59 (three) Center tablet times daily. PARoxetine 2017-0 Yes 40mg QD Take [address] (PAXIL) 40 2-23 by mouth [facility] tablet 10:23: nightly. [facility] [address] OXcarbazepi 2017-0 Yes 600mg Q.67310875 Take [address] ne 2-23 [id number] [facility] by [facility] (TRILEPTAL) 10:23: 3D mouth [...] Goal Plan of Care Note [code = 77826-5] Goal Plan of Care Note [code = 28995-5] Goal Plan of Care Note [code = 29668-9] Goal Plan of Care Note [code = 81047-4] Goal Plan of Care Note [code = 42178-6] Goal Plan of Care Note [code = 48984-4] Goal Plan of Care Note [code = 07070-3] Goal Plan of Care Note [code = 96336-9] Goal Plan of Care Note [code = 15270-5] Goal Plan of Care Note [code = 05382-7] Goal Plan of Care Note [code = 71306-9] Goal Plan of Care Note [code = 54655-7] Goal Plan of Care Note [code = 28778-8] Goal Plan of Care Note [code = 47209-9] Goal Plan of Care Note [code = 61287-2] Goal Plan of Care Note [code = 14605-6] Goal Plan of Care Note [code = 17663-3] Goal Plan of Care Note [code = 93009-6] Goal Plan of Care Note [code = 61975-3] Goal Plan of Care Note [code = 25339-0] Goal Plan of Care Note [code = 33276-1] Goal Plan of Care Note [code = 65522-5] Goal Plan of Care Note [code = 90593-8] Goal Plan of Care Note [code = 10042-2] Goal Plan of Care Note [code = 33129-4] Goal Plan of Care Note [code = 83370-7] Goal Plan of Care Note [code = 58037-7] Goal Plan of Care Note [code = 55692-3] Goal Plan of Care Note [code = 30616-3] Goal Plan of Care Note [code = 84352-5] Goal Plan of Care Note [code = 03733-2] Goal Plan of Care Note [code = 83271-5] Goal Plan of Care Note [code = 05748-0] Goal Plan of Care Note [code = 31930-2] Goal Plan of Care Note [code = 22821-0] Goal Plan of Care Note [code = 50621-7] Goal Plan of Care Note [code = 36115-1] Goal Plan of Care Note [code = 99662-8] Goal Plan of Care Note [code = 95819-9] Goal Plan of Care Note [code = 87286-3] Goal Plan of Care Note [code = 01107-2] Goal Plan of Care Note [code = 19689-5] Goal Plan of Care Note [code = 98465-7] Goal Plan of Care Note [code = 26047-3] Goal Plan of Care Note [code = 08291-7] Goal Plan of Care Note [code = 31878-7] Goal Plan of Care Note [code = 11460-0] Goal Plan of Care Note [code = 02390-4] Goal Plan of Care Note [code = 15079-5] Goal Plan of Care Note [code = 88707-9] Goal Plan of Care Note [code = 70411-6] Goal Plan of Care Note [code = 64034-9] Goal Plan of Care Note [code = 31258-6] Goal Plan of Care Note [code = 35107-0] Goal Plan of Care Note [code = 00072-6] Goal Plan of Care Note [code = 81451-8] Goal Plan of Care Note [code = 14465-0] Goal Plan of Care Note [code = 04971-2] Goal Plan of Care Note [code = 00647-9] Goal Plan of Care Note [code = 33776-7] Goal Plan of Care Note [code = 81995-1] Goal Plan of Care Note [code = 66942-8] Goal Plan of Care Note [code = 08094-1] Goal Plan of Care Note [code = 96958-7] Goal Plan of Care Note [code = 72600-3] Goal Plan of Care Note [code = 88693-3] Goal Plan of Care Note [code = 11679-5] Goal Plan of Care Note [code = 27759-6] Goal Plan of Care Note [code = 50032-4] Goal Plan of Care Note [code = 59943-2] Goal Plan of Care Note [code = 89253-5] Goal Plan of Care Note [code = 95253-3] Goal Plan of Care Note [code = 71099-3] Goal Plan of Care Note [code = 43018-1] Goal Plan of Care Note [code = 54327-2] Goal Plan of Care Note [code = 78938-7] Goal Plan of Care Note [code = 95586-5] Goal Plan of Care Note [code = 56840-5] Goal Plan of Care Note [code = 13015-6] Goal Plan of Care Note [code = 74805-9] Goal Plan of Care Note [code = 79923-5] Goal Plan of Care Note [code = 08231-1] Goal Plan of Care Note [code = 90674-0] Goal Plan of Care Note [code = 10868-8] Goal Plan of Care Note [code = 52373-0] Goal Plan of Care Note [code = 86329-5] Goal Plan of Care Note [code = 37371-1] Goal Plan of Care Note [code = 61936-2] Goal Plan of Care Note [code = 86531-1] Goal Plan of Care Note [code = 88877-5] Goal Plan of Care Note [code = 41840-4] Goal Plan of Care Note [code = 04095-2] Goal Plan of Care Note [code = 02506-6] Goal Plan of Care Note [code = 13135-3] Goal Plan of Care Note [code = 52860-4] Goal Plan of Care Note [code = 24255-6] Goal Plan of Care Note [code = 87331-0] Goal Plan of Care Note [code = 64160-6] Goal Plan of Care Note [code = 44085-0] Goal Plan of Care Note [code = 01798-1] Goal Plan of Care Note [code = 97639-8] Goal Plan of Care Note [code = 26429-0] Goal Plan of Care Note [code = 89194-8] Goal Plan of Care Note [code = 69873-4] Goal Plan of Care Note [code = 45761-9] Goal Plan of Care Note [code = 31092-2] Goal Plan of Care Note [code = 58655-6] Goal Plan of Care Note [code = 09767-5] Goal Plan of Care Note [code = 14720-4] Goal Plan of Care Note [code = 19592-6] Goal Plan of Care Note [code = 12641-7] Goal Plan of Care Note [code = 98857-9] Goal Plan of Care Note [code = 06789-2] Goal Plan of Care Note [code = 43235-4] Goal Plan of Care Note [code = 81116-3] Goal Plan of Care Note [code = 06067-9] Goal Plan of Care Note [code = 84931-5] Goal Plan of Care Note [code = 82677-5] Goal Plan of Care Note [code = 27864-3] Goal Plan of Care Note [code = 45857-3] Goal Plan of Care Note [code = 17583-1] Goal Plan of Care Note [code = 63321-0] Goal Plan of Care Note [code = 72550-9] Goal Plan of Care Note [code = 86016-6] Goal Plan of Care Note [code = 89823-7] Goal Plan of Care Note [code = 56418-4] Goal Plan of Care Note [code = 03110-3] Goal Plan of Care Note [code = 09663-3] Goal Plan of Care Note [code = 43600-6] Goal Plan of Care Note [code = 77571-0] Goal Plan of Care Note [code = 27380-1] Goal Plan of Care Note [code = 15679-2] Goal Plan of Care Note [code = 75204-8] Goal Plan of Care Note [code = 79302-4] Goal Plan of Care Note [code = 49546-9] Goal Plan of Care Note [code = 34247-3] Goal Plan of Care Note [code = 99695-2] Goal Plan of Care Note [code = 54225-7] Goal Plan of Care Note [code = 88381-8] Goal Plan of Care Note [code = 22060-2] Goal Plan of Care Note [code = 33585-1] Goal Plan of Care Note [code = 73122-3] Goal Plan of Care Note [code = 18237-5] Goal Plan of Care Note [code = 48905-5] Goal Plan of Care Note [code = 64208-6] Goal Plan of Care Note [code = 66994-8] Goal Plan of Care Note [code = 65693-3] Goal Plan of Care Note [code = 33242-6] Goal Plan of Care Note [code = 48792-4] Goal Plan of Care Note [code = 70196-6] Goal Plan of Care Note [code = 00607-9] Goal Plan of Care Note [code = 27390-3] Goal Plan of Care Note [code = 52886-6] Goal Plan of Care Note [code = 01868-0] Goal Plan of Care Note [code = 77838-9] Goal Plan of Care Note [code = 16172-2] Goal Plan of Care Note [code = 05489-9] Goal Plan of Care Note [code = 67465-5] Goal Plan of Care Note [code = 71787-8] Goal Plan of Care Note [code = 91354-5] Goal Plan of Care Note [code = 26426-6] Goal Plan of Care Note [code = 75527-3] Goal Plan of Care Note [code = 94979-8] Goal Plan of Care Note [code = 75453-9] Goal Plan of Care Note [code = 47134-4] Goal Plan of Care Note [code = 72519-2] Goal Plan of Care Note [code = 61304-9] Goal Plan of Care Note [code = 78197-7] Goal Plan of Care Note [code = 28140-0] Goal Plan of Care Note [code = 00973-1] Goal Plan of Care Note [code = 34526-1] Goal Plan of Care Note [code = 81064-0] Goal Plan of Care Note [code = 92436-2] Goal Plan of Care Note [code = 66142-3] Goal Plan of Care Note [code = 94248-7] Goal Plan of Care Note [code = 65038-7] Goal Plan of Care Note [code = 43151-0] Goal Plan of Care Note [code = 19419-6] Goal Plan of Care Note [code = 13112-4] Goal Plan of Care Note [code = 84953-2] Goal Plan of Care Note [code = 18177-0] Goal Plan of Care Note [code = 84731-9] Goal Plan of Care Note [code = 97324-0] Goal Plan of Care Note [code = 03847-1] Goal Plan of Care Note [code = 80867-8] Goal Plan of Care Note [code = 05314-9] Goal Plan of Care Note [code = 48196-3] Goal Plan of Care Note [code = 69574-2] Goal Plan of Care Note [code = 00178-7] Goal Plan of Care Note [code = 75659-1] Goal Plan of Care Note [code = 98997-4] Goal Plan of Care Note [code = 54625-7] Goal Plan of Care Note [code = 59639-8] Goal Plan of Care Note [code = 36481-1] Goal Plan of Care Note [code = 79583-4] Goal Plan of Care Note [code = 21188-4] Goal Plan of Care Note [code = 55566-0] Goal Plan of Care Note [code = 91662-0] Goal Plan of Care Note [code = 30813-8] Goal Plan of Care Note [code = 05053-5] Goal Plan of Care Note [code = 51315-6] Goal Plan of Care Note [code = 78838-1] Goal Plan of Care Note [code = 58718-8] Goal Plan of Care Note [code = 34937-8] Goal Plan of Care Note [code = 56418-3] Goal Plan of Care Note [code = 48432-6] Goal Plan of Care Note [code = 73528-5] Goal Plan of Care Note [code = 70778-6] Encounters Start End Encounter Admission Attending Care Care Encounter Source Date/Time Date/Time Type Type Clinicians Facility Department ID 2021-06-01 Outpatient [facility] [id number] [place] 01:36:29 [id number] [facility] 2022-02-11 2022-02-11 Outpatient SFA SFA [id number] Cristian 09:04:48 09:04:48 1206 F Jerman 2022-02-10 2022-02-10 Outpatient SFA SFA [id number] Cristian 09:29:34 09:29:34 1205 F Jerman 2022-02-10 2022-02-10 Outpatient [id number]- [id number] [id number] 00:00:00 00:00:00 Visit 4089-4cab 089-4cab-9 -7th8-c9y bf5-b7w187 174ddpi52 bafa93 2022-01-10 2022-01-10 Outpatient SFA SFA [id number] 022 Cristian 09:16:14 09:16:14 1104 F Jerman 2022-01-10 2022-01-10 Outpatient f2gbqik9- [id number] f2 accaa6-a 00:00:00 00:00:00 Visit aca9-4c83 ca9-4c83-a -v5ou-rp0 7eb-bc13f3 0o9x673g8 f032f9 2021-12-19 2021-12-19 Outpatient SFA SFA [id number] 022 Cristian 16:11:31 16:11:31 1013 F Jerman 2021-12-19 2021-12-19 Outpatient [id number] [id number] 00:00:00 00:00:00 Visit p402-808s 770-441f-a -adae-62b amelia-62bace tbusy50rj fd81af 2021-09-17 2021-09-17 Outpatient bhg6qbur- [id number] aa d7wwut-5 00:00:00 00:00:00 Visit 935a-4f50 35a-4f50-b -n51v-j8w 77d-c2ba85 b852097v6 1264a6 2020-08-03 2020-08-03 Outpatient MATT VÁSQUEZ [facility] [id number] [facility] 10:00:00 10:00:00 MATT SIMPSON [facility] 2020-07-25 2020-07-25 Orders Doctor ABE [id number] 00:00:00 00:00:00 Only Unassigned, BK 350.1.13.10 [place] [facility] 4.2.7.2.686 [id number] 2019-09-26 2019-09-26 Outpatient R RAGHU, [facility] [id number] [facility] 16:00:00 16:00:00 WALLY [facility] 2018-10-21 2018-10-21 Telephone Gramm, [facility] [id number] 00:00:00 00:00:00 Natacha Myles Wendy 350.1.13.10 [place] 4.2.7.2.686 [place] [id number] [facility] [address] Results Test Description Test Time Test Comments Results Result Comments Source TSH, THIRD GENERATION 2021-06-27 05:15:49 Test Item Value Reference Range Interpretation Comme nts TSH, THIRD GENERATION (test code = 2821) 2.080 UIU/ML 0.400-4.100 HEMOGLOBIN [id number] 03:46:00 Test Item Value Reference Range Interpretation Comments HEMOGLOBIN A1c (test 6.6 % 4.2-5.6 H [employer] [employer] [facility]ES code = 78994) ASSOCIATION IDELINES FOR HGB A1C: PREDIABETES/INC REASED [...] INDICATED, ALL TESTING PER FORMED ATCLINICAL PATH [facility], [place]. [address] [place] [address] 7867 LABORATORY DIRE CTOR: DIANA RUSS M.D. CLIA NUMBER [id number] [place]. [id number] LIPID [id number] 02:59:52 Test Item Value Reference Range Interpretation [...] MOREINFORMATION , SEE CLIENT ANNOUNCE MENT AT [email or web address] RISK RATIO LDL/HDL 4.02 RATIO <3.22 H (test code = 2238) [id number] 00:00:00 Test Item Value Reference Range Interpretation Comments TSH, THIRD GENERATION (test code 2.080 UIU/ML = 2821) [id number] 00:00:00 Test Item Value Reference Range Interpretation Comments TSH, THIRD GENERATION (test code 2.080 UIU/ML = 2821) [id number] 00:00:00 Test Item Value Reference Range Interpretation Comments TSH, THIRD GENERATION (test code 2.080 UIU/ML = 2821) LIPID [id number] 00:00:00 Test Item Value Reference Range Interpretation Comments CHOLESTEROL (test code = 2210) 292 MG/DL TRIGLYCERIDES (test code = 2232) 184 MG/DL HDL CHOLESTEROL (test code = 2220) 51 MG/DL CALC LDL CHOL (test code = 2237) 205 MG/DL RISK RATIO LDL/HDL (test code = 4.02 RATIO 2238) LIPID [id number] 00:00:00 Test Item Value Reference Range Interpretation Comments CHOLESTEROL (test code = 2210) 292 MG/DL TRIGLYCERIDES (test code = 2232) 184 MG/DL HDL CHOLESTEROL (test code = 2220) 51 MG/DL CALC LDL CHOL (test code = 2237) 205 MG/DL RISK RATIO LDL/HDL (test code = 4.02 RATIO 2238) HEMOGLOBIN [id number] 00:00:00 Test Item Value Reference Range Interpretation Comments HEMOGLOBIN A1c (test code = 40930) 6.6 % HEMOGLOBIN [id number] 00:00:00 Test Item Value Reference Range Interpretation Comments HEMOGLOBIN A1c (test code = 54798) 6.6 % HEMOGLOBIN [id number] 00:00:00 Test Item Value Reference Range Interpretation Comments HEMOGLOBIN A1c (test code = 80780) 6.6 % [id number] 00:00:00 Test Item Value Reference Range Interpretation Comments TSH, THIRD GENERATION (test code 2.080 UIU/ML = 2821) [id number] 00:00:00 Test Item Value Reference Range Interpretation Comments TSH, THIRD GENERATION (test code 2.080 UIU/ML = 2821) [id number] 00:00:00 Test Item Value Reference Range Interpretation Comments TSH, THIRD GENERATION (test code 2.080 UIU/ML = 2821) LIPID [id number] 00:00:00 Test Item Value Reference Range Interpretation Comments CHOLESTEROL (test code = 2210) 292 MG/DL TRIGLYCERIDES (test code = 2232) 184 MG/DL HDL CHOLESTEROL (test code = 2220) 51 MG/DL CALC LDL CHOL (test code = 2237) 205 MG/DL RISK RATIO LDL/HDL (test code = 4.02 RATIO 2238) LIPID [id number] 00:00:00 Test Item Value Reference Range Interpretation Comments CHOLESTEROL (test code = 2210) 292 MG/DL TRIGLYCERIDES (test code = 2232) 184 MG/DL HDL CHOLESTEROL (test code = 2220) 51 MG/DL CALC LDL CHOL (test code = 2237) 205 MG/DL RISK RATIO LDL/HDL (test code = 4.02 RATIO 2238) HEMOGLOBIN [id number] 00:00:00 Test Item Value Reference Range Interpretation Comments HEMOGLOBIN A1c (test code = 53110) 6.6 % HEMOGLOBIN [id number] 00:00:00 Test Item Value Reference Range Interpretation Comments HEMOGLOBIN A1c (test code = 10557) 6.6 % HEMOGLOBIN [id number] 00:00:00 Test Item Value Reference Range Interpretation Comments HEMOGLOBIN A1c (test code = 68441) 6.6 % [id number] 00:00:00 Test Item Value Reference Range Interpretation Comments TSH, THIRD GENERATION (test code 2.080 UIU/ML = 2821) [id number] 00:00:00 Test Item Value Reference Range Interpretation Comments TSH, THIRD GENERATION (test code 2.080 UIU/ML = 2821) LIPID [id number] 00:00:00 Test Item Value Reference Range Interpretation Comments CHOLESTEROL (test code = 2210) 292 MG/DL TRIGLYCERIDES (test code = 2232) 184 MG/DL HDL CHOLESTEROL (test code = 2220) 51 MG/DL CALC LDL CHOL (test code = 2237) 205 MG/DL RISK RATIO LDL/HDL (test code = 4.02 RATIO 2238) HEMOGLOBIN [id number] 00:00:00 Test Item Value Reference Range Interpretation Comments HEMOGLOBIN A1c (test code = 53929) 6.6 % HEMOGLOBIN [id number] 00:00:00 Test Item Value Reference Range Interpretation Comments HEMOGLOBIN A1c (test code = 33817) 6.6 % [id number] 00:00:00 Test Item Value Reference Range Interpretation Comments TSH, THIRD GENERATION (test code 2.080 UIU/ML = 2821) [id number] 00:00:00 Test Item Value Reference Range Interpretation Comments TSH, THIRD GENERATION (test code 2.080 UIU/ML = 2821) [id number] 00:00:00 Test Item Value Reference Range Interpretation Comments TSH, THIRD GENERATION (test code 2.080 UIU/ML = 2821) LIPID [id number] 00:00:00 Test Item Value Reference Range Interpretation Comments CHOLESTEROL (test code = 2210) 292 MG/DL TRIGLYCERIDES (test code = 2232) 184 MG/DL HDL CHOLESTEROL (test code = 2220) 51 MG/DL CALC LDL CHOL (test code = 2237) 205 MG/DL RISK RATIO LDL/HDL (test code = 4.02 RATIO 2238) LIPID [id number] 00:00:00 Test Item Value Reference Range Interpretation Comments CHOLESTEROL (test code = 2210) 292 MG/DL TRIGLYCERIDES (test code = 2232) 184 MG/DL HDL CHOLESTEROL (test code = 2220) 51 MG/DL CALC LDL CHOL (test code = 2237) 205 MG/DL RISK RATIO LDL/HDL (test code = 4.02 RATIO 2238) HEMOGLOBIN [id number] 00:00:00 Test Item Value Reference Range Interpretation Comments HEMOGLOBIN A1c (test code = 49642) 6.6 % HEMOGLOBIN [id number] 00:00:00 Test Item Value Reference Range Interpretation Comments HEMOGLOBIN A1c (test code = 94458) 6.6 % HEMOGLOBIN [id number] 00:00:00 Test Item Value Reference Range Interpretation Comments HEMOGLOBIN A1c (test code = 59507) 6.6 % HEMOGLOBIN [id number] 00:00:00 Test Item Value Reference Range Interpretation Comments HEMOGLOBIN A1c (test code = 05604) 6.8 % HEMOGLOBIN [id number] 00:00:00 Test Item Value Reference Range Interpretation Comments HEMOGLOBIN A1c (test code = 23503) 6.8 % HEMOGLOBIN [id number] 00:00:00 Test Item Value Reference Range Interpretation Comments HEMOGLOBIN A1c (test code = 10646) 6.8 % LIPID [id number] 00:00:00 Test Item Value Reference Range Interpretation Comments CHOLESTEROL (test code = 2210) 303 MG/DL TRIGLYCERIDES (test code = 2232) 191 MG/DL HDL CHOLESTEROL (test code = 2220) 61 MG/DL CALC LDL CHOL (test code = 2237) 205 MG/DL RISK RATIO LDL/HDL (test code = 3.36 RATIO 2238) LIPID [id number] 00:00:00 Test Item Value Reference Range Interpretation Comments CHOLESTEROL (test code = 2210) 303 MG/DL TRIGLYCERIDES (test code = 2232) 191 MG/DL HDL CHOLESTEROL (test code = 2220) 61 MG/DL CALC LDL CHOL (test code = 2237) 205 MG/DL RISK RATIO LDL/HDL (test code = 3.36 RATIO 2238) [id number] 00:00:00 Test Item Value Reference Range Interpretation Comments TSH, THIRD GENERATION (test code 0.769 UIU/ML = 2821) [id number] 00:00:00 Test Item Value Reference Range Interpretation Comments TSH, THIRD GENERATION (test code 0.769 UIU/ML = 2821) [id number] 00:00:00 Test Item Value Reference Range Interpretation Comments TSH, THIRD GENERATION (test code 0.769 UIU/ML = 2821) COMPREHENSIVE METABOLIC [id number] 00:00:00 Test Item Value Reference Range Interpretation Comments GLUCOSE (test code = 2217) 131 MG/DL BUN (test code = 2208) 13 MG/DL CREATININE (test code = 2214) 0.65 MG/DL eGFR AMER. (test code 113 ML/MIN/1.73 = 42915) eGFR NON- AMER. (test 97 ML/MIN/1.73 code = 04903) CALC BUN/CREAT (test code = 20 RATIO [...] code = 2219) 23 U/L COMPREHENSIVE METABOLIC [id number] 00:00:00 Test Item Value Reference Range Interpretation Comments GLUCOSE (test code = 2217) 131 MG/DL BUN (test code = 2208) 13 MG/DL CREATININE (test code = 2214) 0.65 MG/DL eGFR AMER. (test code 113 ML/MIN/1.73 = 97589) eGFR NON- AMER. (test 97 ML/MIN/1.73 code = 94707) CALC BUN/CREAT (test code = 20 RATIO [...] (test code = 2219) 23 U/L HEMOGLOBIN [id number] 00:00:00 Test Item Value Reference Range Interpretation Comments HEMOGLOBIN A1c (test code = 28824) 6.8 % HEMOGLOBIN [id number] 00:00:00 Test Item Value Reference Range Interpretation Comments HEMOGLOBIN A1c (test code = 43634) 6.8 % HEMOGLOBIN [id number] 00:00:00 Test Item Value Reference Range Interpretation Comments HEMOGLOBIN A1c (test code = 69204) 6.8 % LIPID [id number] 00:00:00 Test Item Value Reference Range Interpretation Comments CHOLESTEROL (test code = 2210) 303 MG/DL TRIGLYCERIDES (test code = 2232) 191 MG/DL HDL CHOLESTEROL (test code = 2220) 61 MG/DL CALC LDL CHOL (test code = 2237) 205 MG/DL RISK RATIO LDL/HDL (test code = 3.36 RATIO 2238) LIPID [id number] 00:00:00 Test Item Value Reference Range Interpretation Comments CHOLESTEROL (test code = 2210) 303 MG/DL TRIGLYCERIDES (test code = 2232) 191 MG/DL HDL CHOLESTEROL (test code = 2220) 61 MG/DL CALC LDL CHOL (test code = 2237) 205 MG/DL RISK RATIO LDL/HDL (test code = 3.36 RATIO 2238) [id number] 00:00:00 Test Item Value Reference Range Interpretation Comments TSH, THIRD GENERATION (test code 0.769 UIU/ML = 2821) [id number] 00:00:00 Test Item Value Reference Range Interpretation Comments TSH, THIRD GENERATION (test code 0.769 UIU/ML = 2821) [id number] 00:00:00 Test Item Value Reference Range Interpretation Comments TSH, THIRD GENERATION (test code 0.769 UIU/ML = 2821) COMPREHENSIVE METABOLIC [id number] 00:00:00 Test Item Value Reference Range Interpretation Comments GLUCOSE (test code = 2217) 131 MG/DL BUN (test code = 2208) 13 MG/DL CREATININE (test code = 2214) 0.65 MG/DL eGFR AMER. (test code 113 ML/MIN/1.73 = 57387) eGFR NON- AMER. (test 97 ML/MIN/1.73 code = 80735) CALC BUN/CREAT (test code = 20 RATIO [...] code = 2219) 23 U/L COMPREHENSIVE METABOLIC [id number] 00:00:00 Test Item Value Reference Range Interpretation Comments GLUCOSE (test code = 2217) 131 MG/DL BUN (test code = 2208) 13 MG/DL CREATININE (test code = 2214) 0.65 MG/DL eGFR AMER. (test code 113 ML/MIN/1.73 = 30218) eGFR NON- AMER. (test 97 ML/MIN/1.73 code = 41837) CALC BUN/CREAT (test code = 20 RATIO [...] (test code = 2219) 23 U/L HEMOGLOBIN [id number] 00:00:00 Test Item Value Reference Range Interpretation Comments HEMOGLOBIN A1c (test code = 46486) 6.8 % HEMOGLOBIN [id number] 00:00:00 Test Item Value Reference Range Interpretation Comments HEMOGLOBIN A1c (test code = 09020) 6.8 % LIPID [id number] 00:00:00 Test Item Value Reference Range Interpretation Comments CHOLESTEROL (test code = 2210) 303 MG/DL TRIGLYCERIDES (test code = 2232) 191 MG/DL HDL CHOLESTEROL (test code = 2220) 61 MG/DL CALC LDL CHOL (test code = 2237) 205 MG/DL RISK RATIO LDL/HDL (test code = 3.36 RATIO 8) [id number] 00:00:00 Test Item Value Reference Range Interpretation Comments TSH, THIRD GENERATION (test code 0.769 UIU/ML = 2821) [id number] 00:00:00 Test Item Value Reference Range Interpretation Comments TSH, THIRD GENERATION (test code 0.769 UIU/ML = 2821) COMPREHENSIVE METABOLIC [id number] 00:00:00 Test Item Value Reference Range Interpretation Comments GLUCOSE (test code = 2217) 131 MG/DL BUN (test code = 2208) 13 MG/DL CREATININE (test code = 2214) 0.65 MG/DL eGFR AMER. (test code 113 ML/MIN/1.73 = 29449) eGFR NON- AMER. (test 97 ML/MIN/1.73 code = 70726) CALC BUN/CREAT (test code = 20 RATIO [...] (test code = 2219) 23 U/L HEMOGLOBIN [id number] 00:00:00 Test Item Value Reference Range Interpretation Comments HEMOGLOBIN A1c (test code = 80023) 6.8 % HEMOGLOBIN [id number] 00:00:00 Test Item Value Reference Range Interpretation Comments HEMOGLOBIN A1c (test code = 68893) 6.8 % HEMOGLOBIN [id number] 00:00:00 Test Item Value Reference Range Interpretation Comments HEMOGLOBIN A1c (test code = 30865) 6.8 % LIPID [id number] 00:00:00 Test Item Value Reference Range Interpretation Comments CHOLESTEROL (test code = 2210) 303 MG/DL TRIGLYCERIDES (test code = 2232) 191 MG/DL HDL CHOLESTEROL (test code = 2220) 61 MG/DL CALC LDL CHOL (test code = 2237) 205 MG/DL RISK RATIO LDL/HDL (test code = 3.36 RATIO 2238) LIPID [id number] 00:00:00 Test Item Value Reference Range Interpretation Comments CHOLESTEROL (test code = 2210) 303 MG/DL TRIGLYCERIDES (test code = 2232) 191 MG/DL HDL CHOLESTEROL (test code = 2220) 61 MG/DL CALC LDL CHOL (test code = 2237) 205 MG/DL RISK RATIO LDL/HDL (test code = 3.36 RATIO 2238) [id number] 00:00:00 Test Item Value Reference Range Interpretation Comments TSH, THIRD GENERATION (test code 0.769 UIU/ML = 2821) [id number] 00:00:00 Test Item Value Reference Range Interpretation Comments TSH, THIRD GENERATION (test code 0.769 UIU/ML = 2821) [id number] 00:00:00 Test Item Value Reference Range Interpretation Comments TSH, THIRD GENERATION (test code 0.769 UIU/ML = 2821) COMPREHENSIVE METABOLIC [id number] 00:00:00 Test Item Value Reference Range Interpretation Comments GLUCOSE (test code = 2217) 131 MG/DL BUN (test code = 2208) 13 MG/DL CREATININE (test code = 2214) 0.65 MG/DL eGFR AMER. (test code 113 ML/MIN/1.73 = 14520) eGFR NON- AMER. (test 97 ML/MIN/1.73 code = 88477) CALC BUN/CREAT (test code = 20 RATIO [...] code = 2219) 23 U/L COMPREHENSIVE METABOLIC [id number] 00:00:00 Test Item Value Reference Range Interpretation Comments GLUCOSE (test code = 2217) 131 MG/DL BUN (test code = 2208) 13 MG/DL CREATININE (test code = 2214) 0.65 MG/DL eGFR AMER. (test code 113 ML/MIN/1.73 = 29823) eGFR NON- AMER. (test 97 ML/MIN/1.73 code = 98695) CALC BUN/CREAT (test code = 20 RATIO [...] (test code = 2219) 23 U/L HEMOGLOBIN [id number] 00:00:00 Test Item Value Reference Range Interpretation Comments HEMOGLOBIN A1c (test code = 20187) 6.6 % HEMOGLOBIN [id number] 00:00:00 Test Item Value Reference Range Interpretation Comments HEMOGLOBIN A1c (test code = 50354) 6.6 % HEMOGLOBIN [id number] 00:00:00 Test Item Value Reference Range Interpretation Comments HEMOGLOBIN A1c (test code = 32603) 6.6 % LIPID [id number] 00:00:00 Test Item Value Reference Range Interpretation Comments CHOLESTEROL (test code = 2210) 261 MG/DL TRIGLYCERIDES (test code = 2232) 159 MG/DL HDL CHOLESTEROL (test code = 2220) 82 MG/DL CALC LDL CHOL (test code = 2237) 150 MG/DL RISK RATIO LDL/HDL (test code = 1.83 RATIO 2238) LIPID [id number] 00:00:00 Test Item Value Reference Range Interpretation Comments CHOLESTEROL (test code = 2210) 261 MG/DL TRIGLYCERIDES (test code = 2232) 159 MG/DL HDL CHOLESTEROL (test code = 2220) 82 MG/DL CALC LDL CHOL (test code = 2237) 150 MG/DL RISK RATIO LDL/HDL (test code = 1.83 RATIO 2238) COMPREHENSIVE METABOLIC [id number] 00:00:00 Test Item Value Reference Range Interpretation Comments GLUCOSE (test code = 2217) 144 MG/DL BUN (test code = 2208) 15 MG/DL CREATININE (test code = 2214) 0.85 MG/DL eGFR AMER. (test code 87 ML/MIN/1.73 = 88312) eGFR NON- AMER. (test 75 ML/MIN/1.73 code = 36957) CALC BUN/CREAT (test code = 18 RATIO [...] code = 2219) 50 U/L COMPREHENSIVE METABOLIC [id number] 00:00:00 Test Item Value Reference Range Interpretation Comments GLUCOSE (test code = 2217) 144 MG/DL BUN (test code = 2208) 15 MG/DL CREATININE (test code = 2214) 0.85 MG/DL eGFR AMER. (test code 87 ML/MIN/1.73 = 89482) eGFR NON- AMER. (test 75 ML/MIN/1.73 code = 94543) CALC BUN/CREAT (test code = 18 RATIO [...] THYROX. BIND. CAPAC. (test code 1.1 = 94396) T4 (THYROXINE) (test code = 4.3 UG/DL 281) CORRECTED T4 (FTI) (test code = 3.9 UG/DL 2820) TSH, THIRD GENERATION (test 18.900 UIU/ML code = 2821) THYROID II PROFILE (T3U, T4, T7, TSH)2020-05-23 00:00:00 Test Item Value Reference Range Interpretation Comments T-UPTAKE (test code = 2817) 30.2 % THYROX. BIND. CAPAC. (test code 1.1 = 44633) T4 (THYROXINE) (test code = 4.3 UG/DL 2819) CORRECTED T4 (FTI) (test code = 3.9 UG/DL 2820) TSH, THIRD GENERATION (test 18.900 UIU/ML code = 2821) HEMOGLOBIN [id number] 00:00:00 Test Item Value Reference Range Interpretation Comments HEMOGLOBIN A1c (test code = 14376) 6.6 % HEMOGLOBIN [id number] 00:00:00 Test Item Value Reference Range Interpretation Comments HEMOGLOBIN A1c (test code = 82959) 6.6 % HEMOGLOBIN [id number] 00:00:00 Test Item Value Reference Range Interpretation Comments HEMOGLOBIN A1c (test code = 26060) 6.6 % LIPID [id number] 00:00:00 Test Item Value Reference Range Interpretation Comments CHOLESTEROL (test code = 2210) 261 MG/DL TRIGLYCERIDES (test code = 2232) 159 MG/DL HDL CHOLESTEROL (test code = 2220) 82 MG/DL CALC LDL CHOL (test code = 2237) 150 MG/DL RISK RATIO LDL/HDL (test code = 1.83 RATIO 2238) LIPID [id number] 00:00:00 Test Item Value Reference Range Interpretation Comments CHOLESTEROL (test code = 2210) 261 MG/DL TRIGLYCERIDES (test code = 2232) 159 MG/DL HDL CHOLESTEROL (test code = 2220) 82 MG/DL CALC LDL CHOL (test code = 2237) 150 MG/DL RISK RATIO LDL/HDL (test code = 1.83 RATIO 2238) COMPREHENSIVE METABOLIC [id number] 00:00:00 Test Item Value Reference Range Interpretation Comments GLUCOSE (test code = 2217) 144 MG/DL BUN (test code = 2208) 15 MG/DL CREATININE (test code = 2214) 0.85 MG/DL eGFR AMER. (test code 87 ML/MIN/1.73 = 54887) eGFR NON- AMER. (test 75 ML/MIN/1.73 code = 98587) CALC BUN/CREAT (test code = 18 RATIO [...] code = 2219) 50 U/L COMPREHENSIVE METABOLIC [id number] 00:00:00 Test Item Value Reference Range Interpretation Comments GLUCOSE (test code = 2217) 144 MG/DL BUN (test code = 2208) 15 MG/DL CREATININE (test code = 2214) 0.85 MG/DL eGFR AMER. (test code 87 ML/MIN/1.73 = 08929) eGFR NON- AMER. (test 75 ML/MIN/1.73 code = 93658) CALC BUN/CREAT (test code = 18 RATIO [...] THYROX. BIND. CAPAC. (test code 1.1 = 26397) T4 (THYROXINE) (test code = 4.3 UG/DL 2819) CORRECTED T4 (FTI) (test code = 3.9 UG/DL 2820) TSH, THIRD GENERATION (test 18.900 UIU/ML code = 2821) THYROID II PROFILE (T3U, T4, T7, TSH)2020-05-23 00:00:00 Test Item Value Reference Range Interpretation Comments T-UPTAKE (test code = 2817) 30.2 % THYROX. BIND. CAPAC. (test code 1.1 = 13651) T4 (THYROXINE) (test code = 4.3 UG/DL 2819) CORRECTED T4 (FTI) (test code = 3.9 UG/DL 2820) TSH, THIRD GENERATION (test 18.900 UIU/ML code = 2821) HEMOGLOBIN [id number] 00:00:00 Test Item Value Reference Range Interpretation Comments HEMOGLOBIN A1c (test code = 80416) 6.6 % HEMOGLOBIN [id number] 00:00:00 Test Item Value Reference Range Interpretation Comments HEMOGLOBIN A1c (test code = 48331) 6.6 % LIPID [id number] 00:00:00 Test Item Value Reference Range Interpretation Comments CHOLESTEROL (test code = 2210) 261 MG/DL TRIGLYCERIDES (test code = 2232) 159 MG/DL HDL CHOLESTEROL (test code = 2220) 82 MG/DL CALC LDL CHOL (test code = 2237) 150 MG/DL RISK RATIO LDL/HDL (test code = 1.83 RATIO 2238) COMPREHENSIVE METABOLIC [id number] 00:00:00 Test Item Value Reference Range Interpretation Comments GLUCOSE (test code = 2217) 144 MG/DL BUN (test code = 2208) 15 MG/DL CREATININE (test code = 2214) 0.85 MG/DL eGFR AMER. (test code 87 ML/MIN/1.73 = 58921) eGFR NON- AMER. (test 75 ML/MIN/1.73 code = 06218) CALC BUN/CREAT (test code = 18 RATIO [...] THYROX. BIND. CAPAC. (test code 1.1 = 52262) T4 (THYROXINE) (test code = 4.3 UG/DL 2819) CORRECTED T4 (FTI) (test code = 3.9 UG/DL 2820) TSH, THIRD GENERATION (test 18.900 UIU/ML code = 2821) HEMOGLOBIN [id number] 00:00:00 Test Item Value Reference Range Interpretation Comments HEMOGLOBIN A1c (test code = 02012) 6.6 % HEMOGLOBIN [id number] 00:00:00 Test Item Value Reference Range Interpretation Comments HEMOGLOBIN A1c (test code = 45888) 6.6 % HEMOGLOBIN [id number] 00:00:00 Test Item Value Reference Range Interpretation Comments HEMOGLOBIN A1c (test code = 06909) 6.6 % LIPID [id number] 00:00:00 Test Item Value Reference Range Interpretation Comments CHOLESTEROL (test code = 2210) 261 MG/DL TRIGLYCERIDES (test code = 2232) 159 MG/DL HDL CHOLESTEROL (test code = 2220) 82 MG/DL CALC LDL CHOL (test code = 2237) 150 MG/DL RISK RATIO LDL/HDL (test code = 1.83 RATIO 2238) LIPID [id number] 00:00:00 Test Item Value Reference Range Interpretation Comments CHOLESTEROL (test code = 2210) 261 MG/DL TRIGLYCERIDES (test code = 2232) 159 MG/DL HDL CHOLESTEROL (test code = 2220) 82 MG/DL CALC LDL CHOL (test code = 2237) 150 MG/DL RISK RATIO LDL/HDL (test code = 1.83 RATIO 2238) COMPREHENSIVE METABOLIC [id number] 00:00:00 Test Item Value Reference Range Interpretation Comments GLUCOSE (test code = 2217) 144 MG/DL BUN (test code = 2208) 15 MG/DL CREATININE (test code = 2214) 0.85 MG/DL eGFR AMER. (test code 87 ML/MIN/1.73 = 96229) eGFR NON- AMER. (test 75 ML/MIN/1.73 code = 58985) CALC BUN/CREAT (test code = 18 RATIO [...] code = 2219) 50 U/L COMPREHENSIVE METABOLIC [id number] 00:00:00 Test Item Value Reference Range Interpretation Comments GLUCOSE (test code = 2217) 144 MG/DL BUN (test code = 2208) 15 MG/DL CREATININE (test code = 2214) 0.85 MG/DL eGFR AMER. (test code 87 ML/MIN/1.73 = 43492) eGFR NON- AMER. (test 75 ML/MIN/1.73 code = 51108) CALC BUN/CREAT (test code = 18 RATIO [...] THYROX. BIND. CAPAC. (test code 1.1 = 34143) T4 (THYROXINE) (test code = 4.3 UG/DL 2819) CORRECTED T4 (FTI) (test code = 3.9 UG/DL 2820) TSH, THIRD GENERATION (test 18.900 UIU/ML code = 2821) THYROID II PROFILE (T3U, T4, T7, TSH)2020-05-23 00:00:00 Test Item Value Reference Range Interpretation Comments T-UPTAKE (test code = 7) 30.2 % THYROX. BIND. CAPAC. (test code 1.1 = 77585) T4 (THYROXINE) (test code = 4.3 UG/DL 2819) CORRECTED T4 (FTI) (test code = 3.9 UG/DL 2820) TSH, THIRD GENERATION (test 18.900 UIU/ML code = 2821) HEMOGLOBIN [id number] 00:00:00 Test Item Value Reference Range Interpretation Comments HEMOGLOBIN A1c (test code = 25926) 6.7 % HEMOGLOBIN [id number] 00:00:00 Test Item Value Reference Range Interpretation Comments HEMOGLOBIN A1c (test code = 03748) 6.7 % HEMOGLOBIN [id number] 00:00:00 Test Item Value Reference Range Interpretation Comments HEMOGLOBIN A1c (test code = 16748) 6.7 % LIPID [id number] 00:00:00 Test Item Value Reference Range Interpretation Comments CHOLESTEROL (test code = 2210) 267 MG/DL TRIGLYCERIDES (test code = 2232) 137 MG/DL HDL CHOLESTEROL (test code = 2220) 48 MG/DL CALC LDL CHOL (test code = 2237) 192 MG/DL RISK RATIO LDL/HDL (test code = 4.00 RATIO 2238) LIPID [id number] 00:00:00 Test Item Value Reference Range Interpretation Comments CHOLESTEROL (test code = 2210) 267 MG/DL TRIGLYCERIDES (test code = 2232) 137 MG/DL HDL CHOLESTEROL (test code = 2220) 48 MG/DL CALC LDL CHOL (test code = 2237) 192 MG/DL RISK RATIO LDL/HDL (test code = 4.00 RATIO 2238) COMPREHENSIVE METABOLIC [id number] 00:00:00 Test Item Value Reference Range Interpretation Comments GLUCOSE (test code = 2217) 155 MG/DL BUN (test code = 2208) 14 MG/DL CREATININE (test code = 2214) 0.52 MG/DL eGFR AMER. (test code 122 ML/MIN/1.73 = 39424) eGFR NON- AMER. (test 105 ML/MIN/1.73 code = 22881) CALC BUN/CREAT (test code = 27 RATIO [...] code = 2219) 27 U/L COMPREHENSIVE METABOLIC [id number] 00:00:00 Test Item Value Reference Range Interpretation Comments GLUCOSE (test code = 2217) 155 MG/DL BUN (test code = 2208) 14 MG/DL CREATININE (test code = 2214) 0.52 MG/DL eGFR AMER. (test code 122 ML/MIN/1.73 = 56039) eGFR NON- AMER. (test 105 ML/MIN/1.73 code = 48945) CALC BUN/CREAT (test code = 27 RATIO [...] THYROX. BIND. CAPAC. (test code 1.0 = 88768) T4 (THYROXINE) (test code = 4.7 UG/DL 2819) CORRECTED T4 (FTI) (test code = 4.7 UG/DL 2820) TSH, THIRD GENERATION (test code 0.201 UIU/ML = 2821) THYROID II PROFILE (T3U, T4, T7, TSH)2019 00:00:00 Test Item Value Reference Range Interpretation Comments T-UPTAKE (test code = 2817) 33.1 % THYROX. BIND. CAPAC. (test code 1.0 = 05233) T4 (THYROXINE) (test code = 4.7 UG/DL 2819) CORRECTED T4 (FTI) (test code = 4.7 UG/DL 2820) TSH, THIRD GENERATION (test code 0.201 UIU/ML = 2821) HEMOGLOBIN [id number] 00:00:00 Test Item Value Reference Range Interpretation Comments HEMOGLOBIN A1c (test code = 56113) 6.7 % HEMOGLOBIN [id number] 00:00:00 Test Item Value Reference Range Interpretation Comments HEMOGLOBIN A1c (test code = 38343) 6.7 % HEMOGLOBIN [id number] 00:00:00 Test Item Value Reference Range Interpretation Comments HEMOGLOBIN A1c (test code = 27815) 6.7 % LIPID [id number] 00:00:00 Test Item Value Reference Range Interpretation Comments CHOLESTEROL (test code = 2210) 267 MG/DL TRIGLYCERIDES (test code = 2232) 137 MG/DL HDL CHOLESTEROL (test code = 2220) 48 MG/DL CALC LDL CHOL (test code = 2237) 192 MG/DL RISK RATIO LDL/HDL (test code = 4.00 RATIO 2238) LIPID [id number] 00:00:00 Test Item Value Reference Range Interpretation Comments CHOLESTEROL (test code = 2210) 267 MG/DL TRIGLYCERIDES (test code = 2232) 137 MG/DL HDL CHOLESTEROL (test code = 2220) 48 MG/DL CALC LDL CHOL (test code = 2237) 192 MG/DL RISK RATIO LDL/HDL (test code = 4.00 RATIO 2238) COMPREHENSIVE METABOLIC [id number] 00:00:00 Test Item Value Reference Range Interpretation Comments GLUCOSE (test code = 2217) 155 MG/DL BUN (test code = 2208) 14 MG/DL CREATININE (test code = 2214) 0.52 MG/DL eGFR AMER. (test code 122 ML/MIN/1.73 = 85041) eGFR NON- AMER. (test 105 ML/MIN/1.73 code = 26168) CALC BUN/CREAT (test code = 27 RATIO [...] code = 2219) 27 U/L COMPREHENSIVE METABOLIC [id number] 00:00:00 Test Item Value Reference Range Interpretation Comments GLUCOSE (test code = 2217) 155 MG/DL BUN (test code = 2208) 14 MG/DL CREATININE (test code = 2214) 0.52 MG/DL eGFR AMER. (test code 122 ML/MIN/1.73 = 21201) eGFR NON- AMER. (test 105 ML/MIN/1.73 code = 03306) CALC BUN/CREAT (test code = 27 RATIO [...] THYROX. BIND. CAPAC. (test code 1.0 = 50126) T4 (THYROXINE) (test code = 4.7 UG/DL 2819) CORRECTED T4 (FTI) (test code = 4.7 UG/DL 2820) TSH, THIRD GENERATION (test code 0.201 UIU/ML = 2821) THYROID II PROFILE (T3U, T4, T7, TSH)2019 00:00:00 Test Item Value Reference Range Interpretation Comments T-UPTAKE (test code = 2816) 33.1 % THYROX. BIND. CAPAC. (test code 1.0 = 20399) T4 (THYROXINE) (test code = 4.7 UG/DL 2819) CORRECTED T4 (FTI) (test code = 4.7 UG/DL 2820) TSH, THIRD GENERATION (test code 0.201 UIU/ML = 2821) HEMOGLOBIN [id number] 00:00:00 Test Item Value Reference Range Interpretation Comments HEMOGLOBIN A1c (test code = 49388) 6.7 % HEMOGLOBIN [id number] 00:00:00 Test Item Value Reference Range Interpretation Comments HEMOGLOBIN A1c (test code = 12805) 6.7 % LIPID [id number] 00:00:00 Test Item Value Reference Range Interpretation Comments CHOLESTEROL (test code = 2210) 267 MG/DL TRIGLYCERIDES (test code = 2232) 137 MG/DL HDL CHOLESTEROL (test code = 2220) 48 MG/DL CALC LDL CHOL (test code = 2237) 192 MG/DL RISK RATIO LDL/HDL (test code = 4.00 RATIO 2238) COMPREHENSIVE METABOLIC [id number] 00:00:00 Test Item Value Reference Range Interpretation Comments GLUCOSE (test code = 2217) 155 MG/DL BUN (test code = 2208) 14 MG/DL CREATININE (test code = 2214) 0.52 MG/DL eGFR AMER. (test code 122 ML/MIN/1.73 = 42486) eGFR NON- AMER. (test 105 ML/MIN/1.73 code = 75126) CALC BUN/CREAT (test code = 27 RATIO [...] THYROX. BIND. CAPAC. (test code 1.0 = 82185) T4 (THYROXINE) (test code = 4.7 UG/DL 2819) CORRECTED T4 (FTI) (test code = 4.7 UG/DL 2820) TSH, THIRD GENERATION (test code 0.201 UIU/ML = 2821) HEMOGLOBIN [id number] 00:00:00 Test Item Value Reference Range Interpretation Comments HEMOGLOBIN A1c (test code = 82863) 6.7 % HEMOGLOBIN [id number] 00:00:00 Test Item Value Reference Range Interpretation Comments HEMOGLOBIN A1c (test code = 64648) 6.7 % HEMOGLOBIN [id number] 00:00:00 Test Item Value Reference Range Interpretation Comments HEMOGLOBIN A1c (test code = 25544) 6.7 % LIPID [id number] 00:00:00 Test Item Value Reference Range Interpretation Comments CHOLESTEROL (test code = 2210) 267 MG/DL TRIGLYCERIDES (test code = 2232) 137 MG/DL HDL CHOLESTEROL (test code = 2220) 48 MG/DL CALC LDL CHOL (test code = 2237) 192 MG/DL RISK RATIO LDL/HDL (test code = 4.00 RATIO 2238) LIPID [id number] 00:00:00 Test Item Value Reference Range Interpretation Comments CHOLESTEROL (test code = 2210) 267 MG/DL TRIGLYCERIDES (test code = 2232) 137 MG/DL HDL CHOLESTEROL (test code = 2220) 48 MG/DL CALC LDL CHOL (test code = 2237) 192 MG/DL RISK RATIO LDL/HDL (test code = 4.00 RATIO 2238) COMPREHENSIVE METABOLIC [id number] 00:00:00 Test Item Value Reference Range Interpretation Comments GLUCOSE (test code = 2217) 155 MG/DL BUN (test code = 2208) 14 MG/DL CREATININE (test code = 2214) 0.52 MG/DL eGFR AMER. (test code 122 ML/MIN/1.73 = 13831) eGFR NON- AMER. (test 105 ML/MIN/1.73 code = 67318) CALC BUN/CREAT (test code = 27 RATIO [...] code = 2219) 27 U/L COMPREHENSIVE METABOLIC [id number] 00:00:00 Test Item Value Reference Range Interpretation Comments GLUCOSE (test code = 2217) 155 MG/DL BUN (test code = 2208) 14 MG/DL CREATININE (test code = 2214) 0.52 MG/DL eGFR AMER. (test code 122 ML/MIN/1.73 = 08372) eGFR NON- AMER. (test 105 ML/MIN/1.73 code = 26515) CALC BUN/CREAT (test code = 27 RATIO [...] THYROX. BIND. CAPAC. (test code 1.0 = 17479) T4 (THYROXINE) (test code = 4.7 UG/DL 2819) CORRECTED T4 (FTI) (test code = 4.7 UG/DL 2820) TSH, THIRD GENERATION (test code 0.201 UIU/ML = 2821) THYROID II PROFILE (T3U, T4, T7, TSH)2019 00:00:00 Test Item Value Reference Range Interpretation Comments T-UPTAKE (test code = 2817) 33.1 % THYROX. BIND. CAPAC. (test code 1.0 = 44034) T4 (THYROXINE) (test code = 4.7 UG/DL 2819) CORRECTED T4 (FTI) (test code = 4.7 UG/DL 2820) TSH, THIRD GENERATION (test code 0.201 UIU/ML = 2821) SARS-CoV-2 (COVID-19) by RT-PCR (HIGH RISK)2019-09-18 00:00:00 Test Item Value Reference Range Interpretation Comments SARS-CoV-2 INTERPRETATION (test NEGATIVE code = 42135) SOURCE (test code = 05854) NOT SPECIFIED SARS-CoV-2 (COVID-19) by RT-PCR (HIGH RISK)2019-09-18 00:00:00 Test Item Value Reference Range Interpretation Comments SARS-CoV-2 INTERPRETATION (test NEGATIVE code = 26228) SOURCE (test code = 25431) NOT SPECIFIED SARS-CoV-2 (COVID-19) by RT-PCR (HIGH RISK)2019-09-18 00:00:00 Test Item Value Reference Range Interpretation Comments SARS-CoV-2 INTERPRETATION (test NEGATIVE code = 39463) SOURCE (test code = 38206) NOT SPECIFIED SARS-CoV-2 (COVID-19) by RT-PCR (HIGH RISK)2019-09-18 00:00:00 Test Item Value Reference Range Interpretation Comments SARS-CoV-2 INTERPRETATION (test NEGATIVE code = 55315) SOURCE (test code = 30896) NOT SPECIFIED SARS-CoV-2 (COVID-19) by RT-PCR (HIGH RISK)2019-09-18 00:00:00 Test Item Value Reference Range Interpretation Comments SARS-CoV-2 INTERPRETATION (test NEGATIVE code = 28882) SOURCE (test code = 67257) NOT SPECIFIED SARS-CoV-2 (COVID-19) by RT-PCR (HIGH RISK)2019-09-18 00:00:00 Test Item Value Reference Range Interpretation Comments SARS-CoV-2 INTERPRETATION (test NEGATIVE code = 84131) SOURCE (test code = 98438) NOT SPECIFIED SARS-CoV-2 (COVID-19) by RT-PCR (HIGH RISK)2019-09-18 00:00:00 Test Item Value Reference Range Interpretation Comments SARS-CoV-2 INTERPRETATION (test NEGATIVE code = 92518) SOURCE (test code = 19410) NOT SPECIFIED [id number] 00:00:00 Test Item Value Reference Range Interpretation Comments TSH, THIRD GENERATION (test code 2.490 UIU/ML = 2821) [id number] 00:00:00 Test Item Value Reference Range Interpretation Comments TSH, THIRD GENERATION (test code 2.490 UIU/ML = 2821) [id number] 00:00:00 Test Item Value Reference Range Interpretation Comments TSH, THIRD GENERATION (test code 2.490 UIU/ML = 2821) HEMOGLOBIN [id number] 00:00:00 Test Item Value Reference Range Interpretation Comments HEMOGLOBIN A1c (test code = 49941) 6.4 % HEMOGLOBIN [id number] 00:00:00 Test Item Value Reference Range Interpretation Comments HEMOGLOBIN A1c (test code = 63579) 6.4 % HEMOGLOBIN [id number] 00:00:00 Test Item Value Reference Range Interpretation Comments HEMOGLOBIN A1c (test code = 68359) 6.4 % COMPREHENSIVE METABOLIC [id number] 00:00:00 Test Item Value Reference Range Interpretation Comments GLUCOSE (test code = 2217) 206 MG/DL BUN (test code = 2208) 23 MG/DL CREATININE (test code = 2214) 0.67 MG/DL eGFR AMER. (test code 112 ML/MIN/1.73 = 74423) eGFR NON- AMER. (test 97 ML/MIN/1.73 code = 73995) CALC BUN/CREAT (test code = 34 RATIO [...] code = 2219) 25 U/L COMPREHENSIVE METABOLIC [id number] 00:00:00 Test Item Value Reference Range Interpretation Comments GLUCOSE (test code = 2217) 206 MG/DL BUN (test code = 2208) 23 MG/DL CREATININE (test code = 2214) 0.67 MG/DL eGFR AMER. (test code 112 ML/MIN/1.73 = 02092) eGFR NON- AMER. (test 97 ML/MIN/1.73 code = 89297) CALC BUN/CREAT (test code = 34 RATIO [...] ALT (test code = 2219) 25 U/L [id number] 00:00:00 Test Item Value Reference Range Interpretation Comments TSH, THIRD GENERATION (test code 2.490 UIU/ML = 2821) [id number] 00:00:00 Test Item Value Reference Range Interpretation Comments TSH, THIRD GENERATION (test code 2.490 UIU/ML = 2821) [id number] 00:00:00 Test Item Value Reference Range Interpretation Comments TSH, THIRD GENERATION (test code 2.490 UIU/ML = 2821) HEMOGLOBIN [id number] 00:00:00 Test Item Value Reference Range Interpretation Comments HEMOGLOBIN A1c (test code = 81873) 6.4 % HEMOGLOBIN [id number] 00:00:00 Test Item Value Reference Range Interpretation Comments HEMOGLOBIN A1c (test code = 01489) 6.4 % HEMOGLOBIN [id number] 00:00:00 Test Item Value Reference Range Interpretation Comments HEMOGLOBIN A1c (test code = 67927) 6.4 % COMPREHENSIVE METABOLIC [id number] 00:00:00 Test Item Value Reference Range Interpretation Comments GLUCOSE (test code = 2217) 206 MG/DL BUN (test code = 2208) 23 MG/DL CREATININE (test code = 2214) 0.67 MG/DL eGFR AMER. (test code 112 ML/MIN/1.73 = 14997) eGFR NON- AMER. (test 97 ML/MIN/1.73 code = 58694) CALC BUN/CREAT (test code = 34 RATIO [...] code = 2219) 25 U/L COMPREHENSIVE METABOLIC [id number] 00:00:00 Test Item Value Reference Range Interpretation Comments GLUCOSE (test code = 2217) 206 MG/DL BUN (test code = 2208) 23 MG/DL CREATININE (test code = 2214) 0.67 MG/DL eGFR AMER. (test code 112 ML/MIN/1.73 = 90867) eGFR NON- AMER. (test 97 ML/MIN/1.73 code = 86675) CALC BUN/CREAT (test code = 34 RATIO [...] ALT (test code = 2219) 25 U/L [id number] 00:00:00 Test Item Value Reference Range Interpretation Comments TSH, THIRD GENERATION (test code 2.490 UIU/ML = 2821) [id number] 00:00:00 Test Item Value Reference Range Interpretation Comments TSH, THIRD GENERATION (test code 2.490 UIU/ML = 2821) HEMOGLOBIN [id number] 00:00:00 Test Item Value Reference Range Interpretation Comments HEMOGLOBIN A1c (test code = 99915) 6.4 % HEMOGLOBIN [id number] 00:00:00 Test Item Value Reference Range Interpretation Comments HEMOGLOBIN A1c (test code = 13905) 6.4 % COMPREHENSIVE METABOLIC [id number] 00:00:00 Test Item Value Reference Range Interpretation Comments GLUCOSE (test code = 2217) 206 MG/DL BUN (test code = 2208) 23 MG/DL CREATININE (test code = 2214) 0.67 MG/DL eGFR AMER. (test code 112 ML/MIN/1.73 = 28202) eGFR NON- AMER. (test 97 ML/MIN/1.73 code = 62707) CALC BUN/CREAT (test code = 34 RATIO [...] ALT (test code = 2219) 25 U/L [id number] 00:00:00 Test Item Value Reference Range Interpretation Comments TSH, THIRD GENERATION (test code 2.490 UIU/ML = 2821) [id number] 00:00:00 Test Item Value Reference Range Interpretation Comments TSH, THIRD GENERATION (test code 2.490 UIU/ML = 2821) [id number] 00:00:00 Test Item Value Reference Range Interpretation Comments TSH, THIRD GENERATION (test code 2.490 UIU/ML = 2821) HEMOGLOBIN [id number] 00:00:00 Test Item Value Reference Range Interpretation Comments HEMOGLOBIN A1c (test code = 20921) 6.4 % HEMOGLOBIN [id number] 00:00:00 Test Item Value Reference Range Interpretation Comments HEMOGLOBIN A1c (test code = 04816) 6.4 % HEMOGLOBIN [id number] 00:00:00 Test Item Value Reference Range Interpretation Comments HEMOGLOBIN A1c (test code = 54998) 6.4 % COMPREHENSIVE METABOLIC [id number] 00:00:00 Test Item Value Reference Range Interpretation Comments GLUCOSE (test code = 2217) 206 MG/DL BUN (test code = 2208) 23 MG/DL CREATININE (test code = 2214) 0.67 MG/DL eGFR AMER. (test code 112 ML/MIN/1.73 = 58811) eGFR NON- AMER. (test 97 ML/MIN/1.73 code = 27557) CALC BUN/CREAT (test code = 34 RATIO [...] code = 2219) 25 U/L COMPREHENSIVE METABOLIC [id number] 00:00:00 Test Item Value Reference Range Interpretation Comments GLUCOSE (test code = 2217) 206 MG/DL BUN (test code = 2208) 23 MG/DL CREATININE (test code = 2214) 0.67 MG/DL eGFR AMER. (test code 112 ML/MIN/1.73 = 28815) eGFR NON- AMER. (test 97 ML/MIN/1.73 code = 75593) CALC BUN/CREAT (test code = 34 RATIO [...] = 2219) 25 U/L VAGINAL PATHOGENS DNA [id number] 00:00:00 Test Item Value Reference Range Interpretation Comments MARK SPECIES (test code = 50819) NEGATIVE G. VAGINALIS (test code = 37251) NEGATIVE T. VAGINALIS (test code = 63937) NEGATIVE VAGINAL PATHOGENS DNA [id number] 00:00:00 Test Item Value Reference Range Interpretation Comments MARK SPECIES (test code = 81657) NEGATIVE G. VAGINALIS (test code = 89306) NEGATIVE T. VAGINALIS (test code = 99813) NEGATIVE VAGINAL PATHOGENS DNA [id number] 00:00:00 Test Item Value Reference Range Interpretation Comments MARK SPECIES (test code = 78966) NEGATIVE G. VAGINALIS (test code = 19996) NEGATIVE T. VAGINALIS (test code = 22352) NEGATIVE VAGINAL PATHOGENS DNA [id number] 00:00:00 Test Item Value Reference Range Interpretation Comments MARK SPECIES (test code = 43642) NEGATIVE G. VAGINALIS (test code = 63830) NEGATIVE T. VAGINALIS (test code = 34187) NEGATIVE VAGINAL PATHOGENS DNA [id number] 00:00:00 Test Item Value Reference Range Interpretation Comments MARK SPECIES (test code = 25768) NEGATIVE G. VAGINALIS (test code = 16412) NEGATIVE T. VAGINALIS (test code = 53844) NEGATIVE VAGINAL PATHOGENS DNA [id number] 00:00:00 Test Item Value Reference Range Interpretation Comments MARK SPECIES (test code = 83012) NEGATIVE G. VAGINALIS (test code = 89866) NEGATIVE T. VAGINALIS (test code = 62320) NEGATIVE VAGINAL PATHOGENS DNA [id number] 00:00:00 Test Item Value Reference Range Interpretation Comments MARK SPECIES (test code = 70961) NEGATIVE G. VAGINALIS (test code = 73526) NEGATIVE T. VAGINALIS (test code = 12097) NEGATIVE HEMOGLOBIN A1c [ADDED]2018-12-01 00:00:00 Test Item Value Reference Range Interpretation Comments HEMOGLOBIN A1c (test code = 81158) 6.7 % HEMOGLOBIN A1c [ADDED]2018-12-01 00:00:00 Test Item Value Reference Range Interpretation Comments HEMOGLOBIN A1c (test code = 45516) 6.7 % HEMOGLOBIN A1c [ADDED]2018-12-01 00:00:00 Test Item Value Reference Range Interpretation Comments HEMOGLOBIN A1c (test code = 10238) 6.7 % COMPREHENSIVE METABOLIC PANEL [ADDED]2018-12-01 00:00:00 Test Item Value Reference Range Interpretation Comments GLUCOSE (test code = 2217) 136 MG/DL BUN (test code = 2208) 15 MG/DL CREATININE (test code = 2214) 0.64 MG/DL eGFR AMER. (test code 115 ML/MIN/1.73 = 11411) eGFR NON- AMER. (test 99 ML/MIN/1.73 code = 53266) CALC BUN/CREAT (test code = 23 RATIO [...] eGFR AMER. (test code 115 ML/MIN/1.73 = 95841) eGFR NON- AMER. (test 99 ML/MIN/1.73 code = 25619) CALC BUN/CREAT (test code = 23 RATIO [...] Interpretation Comments HEMOGLOBIN A1c (test code = 87005) 6.7 % HEMOGLOBIN A1c [ADDED]2018-12-01 00:00:00 Test Item Value Reference Range Interpretation Comments HEMOGLOBIN A1c (test code = 06375) 6.7 % HEMOGLOBIN A1c [ADDED]2018-12-01 00:00:00 Test Item Value Reference Range Interpretation Comments HEMOGLOBIN A1c (test code = 08307) 6.7 % COMPREHENSIVE METABOLIC PANEL [ADDED]2018-12-01 00:00:00 Test Item Value Reference Range Interpretation Comments GLUCOSE (test code = 2217) 136 MG/DL BUN (test code = 2208) 15 MG/DL CREATININE (test code = 2214) 0.64 MG/DL eGFR AMER. (test code 115 ML/MIN/1.73 = 58276) eGFR NON- AMER. (test 99 ML/MIN/1.73 code = 53485) CALC BUN/CREAT (test code = 23 RATIO [...] eGFR AMER. (test code 115 ML/MIN/1.73 = 12218) eGFR NON- AMER. (test 99 ML/MIN/1.73 code = 44997) CALC BUN/CREAT (test code = 23 RATIO [...] Interpretation Comments HEMOGLOBIN A1c (test code = 33122) 6.7 % HEMOGLOBIN A1c [ADDED]2018-12-01 00:00:00 Test Item Value Reference Range Interpretation Comments HEMOGLOBIN A1c (test code = 32505) 6.7 % COMPREHENSIVE METABOLIC PANEL [ADDED]2018-12-01 00:00:00 Test Item Value Reference Range Interpretation Comments GLUCOSE (test code = 2217) 136 MG/DL BUN (test code = 2208) 15 MG/DL CREATININE (test code = 2214) 0.64 MG/DL eGFR AMER. (test code 115 ML/MIN/1.73 = 34027) eGFR NON- AMER. (test 99 ML/MIN/1.73 code [...] Interpretation Comments HEMOGLOBIN A1c (test code = 01732) 6.7 % HEMOGLOBIN A1c [ADDED]2018-12-01 00:00:00 Test Item Value Reference Range Interpretation Comments HEMOGLOBIN A1c (test code = 59836) 6.7 % HEMOGLOBIN A1c [ADDED]2018-12-01 00:00:00 Test Item Value Reference Range Interpretation Comments HEMOGLOBIN A1c (test code = 15892) 6.7 % COMPREHENSIVE METABOLIC PANEL [ADDED]2018-12-01 00:00:00 Test Item Value Reference Range Interpretation Comments GLUCOSE (test code = 2217) 136 MG/DL BUN (test code = 2208) 15 MG/DL CREATININE (test code = 2214) 0.64 MG/DL eGFR AMER. (test code 115 ML/MIN/1.73 = 51856) eGFR NON- AMER. (test 99 ML/MIN/1.73 code = 60133) CALC BUN/CREAT (test code = 23 RATIO [...] eGFR AMER. (test code 115 ML/MIN/1.73 = 30387) eGFR NON- AMER. (test 99 ML/MIN/1.73 code = 80506) CALC BUN/CREAT (test code = 23 RATIO [...] code 1.280 UIU/ML = 2821) CBC W/AUTO [id number] 00:00:00 Test Item Value Reference Range Interpretation [...] code = 1015) 346 K/UL CBC W/AUTO [id number] 00:00:00 Test Item Value Reference Range Interpretation [...] code = 1015) 346 K/UL CBC W/AUTO [id number] 00:00:00 Test Item Value Reference Range Interpretation [...] (test code = 1015) 346 K/UL HEMOGLOBIN [id number] 00:00:00 Test Item Value Reference Range Interpretation Comments HEMOGLOBIN A1c (test code = 35250) 5.9 % HEMOGLOBIN [id number] 00:00:00 Test Item Value Reference Range Interpretation Comments HEMOGLOBIN A1c (test code = 70644) 5.9 % HEMOGLOBIN [id number] 00:00:00 Test Item Value Reference Range Interpretation Comments HEMOGLOBIN A1c (test code = 83263) 5.9 % LIPID [id number] 00:00:00 Test Item Value Reference Range Interpretation Comments CHOLESTEROL (test code = 2210) 318 MG/DL TRIGLYCERIDES (test code = 2232) 263 MG/DL HDL CHOLESTEROL (test code = 2220) 51 MG/DL CALC LDL CHOL (test code = 2237) 214 MG/DL RISK RATIO LDL/HDL (test code = 4.20 RATIO 2238) LIPID [id number] 00:00:00 Test Item Value Reference Range Interpretation Comments CHOLESTEROL (test code = 2210) 318 MG/DL TRIGLYCERIDES (test code = 2232) 263 MG/DL HDL CHOLESTEROL (test code = 2220) 51 MG/DL CALC LDL CHOL (test code = 2237) 214 MG/DL RISK RATIO LDL/HDL (test code = 4.20 RATIO 2238) COMPREHENSIVE METABOLIC [id number] 00:00:00 Test Item Value Reference Range Interpretation Comments GLUCOSE (test code = 2217) 113 MG/DL BUN (test code = 2208) 18 MG/DL CREATININE (test code = 2214) 0.70 MG/DL eGFR AMER. (test code 111 ML/MIN/1.73 = 16634) eGFR NON- AMER. (test 96 ML/MIN/1.73 code = 71430) CALC BUN/CREAT (test code = 26 RATIO [...] code = 2219) 31 U/L COMPREHENSIVE METABOLIC [id number] 00:00:00 Test Item Value Reference Range Interpretation Comments GLUCOSE (test code = 2217) 113 MG/DL BUN (test code = 2208) 18 MG/DL CREATININE (test code = 2214) 0.70 MG/DL eGFR AMER. (test code 111 ML/MIN/1.73 = 98195) eGFR NON- AMER. (test 96 ML/MIN/1.73 code = 46665) CALC BUN/CREAT (test code = 26 RATIO [...] ALT (test code = 2219) 31 U/L [id number] 00:00:00 Test Item Value Reference Range Interpretation Comments TSH, THIRD GENERATION (test code 2.520 UIU/ML = 2821) [id number] 00:00:00 Test Item Value Reference Range Interpretation Comments TSH, THIRD GENERATION (test code 2.520 UIU/ML = 2821) [id number] 00:00:00 Test Item Value Reference Range Interpretation Comments TSH, THIRD GENERATION (test code 2.520 UIU/ML = 2821) CBC W/AUTO [id number] 00:00:00 Test Item Value Reference Range Interpretation [...] code = 1015) 346 K/UL CBC W/AUTO [id number] 00:00:00 Test Item Value Reference Range Interpretation [...] code = 1015) 346 K/UL CBC W/AUTO [id number] 00:00:00 Test Item Value Reference Range Interpretation [...] (test code = 1015) 346 K/UL HEMOGLOBIN [id number] 00:00:00 Test Item Value Reference Range Interpretation Comments HEMOGLOBIN A1c (test code = 99790) 5.9 % HEMOGLOBIN [id number] 00:00:00 Test Item Value Reference Range Interpretation Comments HEMOGLOBIN A1c (test code = 41862) 5.9 % HEMOGLOBIN [id number] 00:00:00 Test Item Value Reference Range Interpretation Comments HEMOGLOBIN A1c (test code = 12240) 5.9 % LIPID [id number] 00:00:00 Test Item Value Reference Range Interpretation Comments CHOLESTEROL (test code = 2210) 318 MG/DL TRIGLYCERIDES (test code = 2232) 263 MG/DL HDL CHOLESTEROL (test code = 2220) 51 MG/DL CALC LDL CHOL (test code = 2237) 214 MG/DL RISK RATIO LDL/HDL (test code = 4.20 RATIO 2238) LIPID [id number] 00:00:00 Test Item Value Reference Range Interpretation Comments CHOLESTEROL (test code = 2210) 318 MG/DL TRIGLYCERIDES (test code = 2232) 263 MG/DL HDL CHOLESTEROL (test code = 2220) 51 MG/DL CALC LDL CHOL (test code = 2237) 214 MG/DL RISK RATIO LDL/HDL (test code = 4.20 RATIO 2238) COMPREHENSIVE METABOLIC [id number] 00:00:00 Test Item Value Reference Range Interpretation Comments GLUCOSE (test code = 2217) 113 MG/DL BUN (test code = 2208) 18 MG/DL CREATININE (test code = 2214) 0.70 MG/DL eGFR AMER. (test code 111 ML/MIN/1.73 = 05422) eGFR NON- AMER. (test 96 ML/MIN/1.73 code = 47944) CALC BUN/CREAT (test code = 26 RATIO [...] code = 2219) 31 U/L COMPREHENSIVE METABOLIC [id number] 00:00:00 Test Item Value Reference Range Interpretation Comments GLUCOSE (test code = 2217) 113 MG/DL BUN (test code = 2208) 18 MG/DL CREATININE (test code = 2214) 0.70 MG/DL eGFR AMER. (test code 111 ML/MIN/1.73 = 41544) eGFR NON- AMER. (test 96 ML/MIN/1.73 code = 56626) CALC BUN/CREAT (test code = 26 RATIO [...] ALT (test code = 2219) 31 U/L [id number] 00:00:00 Test Item Value Reference Range Interpretation Comments TSH, THIRD GENERATION (test code 2.520 UIU/ML = 2821) [id number] 00:00:00 Test Item Value Reference Range Interpretation Comments TSH, THIRD GENERATION (test code 2.520 UIU/ML = 2821) [id number] 00:00:00 Test Item Value Reference Range Interpretation Comments TSH, THIRD GENERATION (test code 2.520 UIU/ML = 2821) CBC W/AUTO [id number] 00:00:00 Test Item Value Reference Range Interpretation [...] code = 1015) 346 K/UL CBC W/AUTO [id number] 00:00:00 Test Item Value Reference Range Interpretation [...] (test code = 1015) 346 K/UL HEMOGLOBIN [id number] 00:00:00 Test Item Value Reference Range Interpretation Comments HEMOGLOBIN A1c (test code = 88648) 5.9 % HEMOGLOBIN [id number] 00:00:00 Test Item Value Reference Range Interpretation Comments HEMOGLOBIN A1c (test code = 24574) 5.9 % LIPID [id number] 00:00:00 Test Item Value Reference Range Interpretation Comments CHOLESTEROL (test code = 2210) 318 MG/DL TRIGLYCERIDES (test code = 2232) 263 MG/DL HDL CHOLESTEROL (test code = 2220) 51 MG/DL CALC LDL CHOL (test code = 2237) 214 MG/DL RISK RATIO LDL/HDL (test code = 4.20 RATIO 2238) COMPREHENSIVE METABOLIC [id number] 00:00:00 Test Item Value Reference Range Interpretation Comments GLUCOSE (test code = 2217) 113 MG/DL BUN (test code = 2208) 18 MG/DL CREATININE (test code = 2214) 0.70 MG/DL eGFR AMER. (test code 111 ML/MIN/1.73 = 19200) eGFR NON- AMER. (test 96 ML/MIN/1.73 code = 00616) CALC BUN/CREAT (test code = 26 RATIO [...] ALT (test code = 2219) 31 U/L [id number] 00:00:00 Test Item Value Reference Range Interpretation Comments TSH, THIRD GENERATION (test code 2.520 UIU/ML = 2821) [id number] 00:00:00 Test Item Value Reference Range Interpretation Comments TSH, THIRD GENERATION (test code 2.520 UIU/ML = 2821) CBC W/AUTO [id number] 00:00:00 Test Item Value Reference Range Interpretation [...] code = 1015) 346 K/UL CBC W/AUTO [id number] 00:00:00 Test Item Value Reference Range Interpretation [...] code = 1015) 346 K/UL CBC W/AUTO [id number] 00:00:00 Test Item Value Reference Range Interpretation [...] (test code = 1015) 346 K/UL HEMOGLOBIN [id number] 00:00:00 Test Item Value Reference Range Interpretation Comments HEMOGLOBIN A1c (test code = 99440) 5.9 % HEMOGLOBIN [id number] 00:00:00 Test Item Value Reference Range Interpretation Comments HEMOGLOBIN A1c (test code = 98582) 5.9 % HEMOGLOBIN [id number] 00:00:00 Test Item Value Reference Range Interpretation Comments HEMOGLOBIN A1c (test code = 51771) 5.9 % LIPID [id number] 00:00:00 Test Item Value Reference Range Interpretation Comments CHOLESTEROL (test code = 2210) 318 MG/DL TRIGLYCERIDES (test code = 2232) 263 MG/DL HDL CHOLESTEROL (test code = 2220) 51 MG/DL CALC LDL CHOL (test code = 2237) 214 MG/DL RISK RATIO LDL/HDL (test code = 4.20 RATIO 2238) LIPID [id number] 00:00:00 Test Item Value Reference Range Interpretation Comments CHOLESTEROL (test code = 2210) 318 MG/DL TRIGLYCERIDES (test code = 2232) 263 MG/DL HDL CHOLESTEROL (test code = 2220) 51 MG/DL CALC LDL CHOL (test code = 2237) 214 MG/DL RISK RATIO LDL/HDL (test code = 4.20 RATIO 2238) COMPREHENSIVE METABOLIC [id number] 00:00:00 Test Item Value Reference Range Interpretation Comments GLUCOSE (test code = 2217) 113 MG/DL BUN (test code = 2208) 18 MG/DL CREATININE (test code = 2214) 0.70 MG/DL eGFR AMER. (test code 111 ML/MIN/1.73 = 38634) eGFR NON- AMER. (test 96 ML/MIN/1.73 code = 92976) CALC BUN/CREAT (test code = 26 RATIO [...] code = 2219) 31 U/L COMPREHENSIVE METABOLIC [id number] 00:00:00 Test Item Value Reference Range Interpretation Comments GLUCOSE (test code = 2217) 113 MG/DL BUN (test code = 2208) 18 MG/DL CREATININE (test code = 2214) 0.70 MG/DL eGFR AMER. (test code 111 ML/MIN/1.73 = 82733) eGFR NON- AMER. (test 96 ML/MIN/1.73 code = 22575) CALC BUN/CREAT (test code = 26 RATIO [...] ALT (test code = 2219) 31 U/L [id number] 00:00:00 Test Item Value Reference Range Interpretation Comments TSH, THIRD GENERATION (test code 2.520 UIU/ML = 2821) [id number] 00:00:00 Test Item Value Reference Range Interpretation Comments TSH, THIRD GENERATION (test code 2.520 UIU/ML = 2821) [id number] 00:00:00 Test Item Value Reference Range Interpretation Comments TSH, THIRD GENERATION (test code 2.520 UIU/ML = 2821) CULTURE, [id number] 00:00:00 Test Item Value Reference Range Interpretation Comments CULTURE, URINE (test SPECIMEN NUMBER: code = 51616) [id number] CULTURE, [id number] 00:00:00 Test Item Value Reference Range Interpretation Comments CULTURE, URINE (test SPECIMEN NUMBER: code = 47291) [id number] CULTURE, [id number] 00:00:00 Test Item Value Reference Range Interpretation Comments CULTURE, URINE (test SPECIMEN NUMBER: code = 48349) [id number] CULTURE, [id number] 00:00:00 Test Item Value Reference Range Interpretation Comments CULTURE, URINE (test SPECIMEN NUMBER: code = 61622) [id number] CULTURE, [id number] 00:00:00 Test Item Value Reference Range Interpretation Comments CULTURE, URINE (test SPECIMEN NUMBER: code = 26780) [id number] CULTURE, [id number] 00:00:00 Test Item Value Reference Range Interpretation Comments CULTURE, URINE (test SPECIMEN NUMBER: code = 20324) [id number] CULTURE, [id number] 00:00:00 Test Item Value Reference Range Interpretation Comments CULTURE, URINE (test SPECIMEN NUMBER: code = 10081) [id number] CULTURE, [id number] 00:00:00 Test Item Value Reference Range Interpretation Comments CULTURE, URINE (test SPECIMEN NUMBER: code = 21811) [id number] CULTURE, [id number] 00:00:00 Test Item Value Reference Range Interpretation Comments CULTURE, URINE (test SPECIMEN NUMBER: code = 45226) [id number] CULTURE, [id number] 00:00:00 Test Item Value Reference Range Interpretation Comments CULTURE, URINE (test SPECIMEN NUMBER: code = 11990) [id number] CULTURE, [id number] 00:00:00 Test Item Value Reference Range Interpretation Comments CULTURE, URINE (test SPECIMEN NUMBER: code = 05011) [id number] CULTURE, [id number] 00:00:00 Test Item Value Reference Range Interpretation Comments CULTURE, URINE (test SPECIMEN NUMBER: code = 97092) [id number] CULTURE, [id number] 00:00:00 Test Item Value Reference Range Interpretation Comments CULTURE, URINE (test SPECIMEN NUMBER: code = 47415) [id number] CULTURE, [id number] 00:00:00 Test Item Value Reference Range Interpretation Comments CULTURE, URINE (test SPECIMEN NUMBER: code = 51509) [id number] BASIC METABOLIC [id number] 00:00:00 Test Item Value Reference Range Interpretation Comments GLUCOSE (test code = 2217) 135 MG/DL BUN (test code = 2208) 25 MG/DL CREATININE (test code = 2214) 0.76 MG/DL eGFR AMER. (test code 101 ML/MIN/1.73 = 40416) eGFR NON- AMER. (test 87 ML/MIN/1.73 code = 79256) SODIUM (test code = 2231) 139 MEQ/L POTASSIUM (test code = 2228) 4.7 MEQ/L CHLORIDE (test code = 2215) 99 MEQ/L CARBON DIOXIDE (test code = 26 MEQ/L 2206) CALCIUM (test code = 2209) 9.4 MG/DL BASIC METABOLIC [id number] 00:00:00 Test Item Value Reference Range Interpretation Comments GLUCOSE (test code = 2217) 135 MG/DL BUN (test code = 2208) 25 MG/DL CREATININE (test code = 2214) 0.76 MG/DL eGFR AMER. (test code 101 ML/MIN/1.73 = 40244) eGFR NON- AMER. (test 87 ML/MIN/1.73 code = 54813) SODIUM (test code = 2231) 139 MEQ/L POTASSIUM (test code = 2228) 4.7 MEQ/L CHLORIDE (test code = 2215) 99 MEQ/L CARBON DIOXIDE (test code = 26 MEQ/L 2206) CALCIUM (test code = 2209) 9.4 MG/DL LIPID [id number] 00:00:00 Test Item Value Reference Range Interpretation Comments CHOLESTEROL (test code = 2210) 262 MG/DL TRIGLYCERIDES (test code = 2232) 300 MG/DL HDL CHOLESTEROL (test code = 2220) 36 MG/DL CALC LDL CHOL (test code = 2237) 166 MG/DL RISK RATIO LDL/HDL (test code = 4.61 RATIO 2238) LIPID [id number] 00:00:00 Test Item Value Reference Range Interpretation Comments CHOLESTEROL (test code = 2210) 262 MG/DL TRIGLYCERIDES (test code = 2232) 300 MG/DL HDL CHOLESTEROL (test code = 2220) 36 MG/DL CALC LDL CHOL (test code = 2237) 166 MG/DL RISK RATIO LDL/HDL (test code = 4.61 RATIO 2238) HEMOGLOBIN [id number] 00:00:00 Test Item Value Reference Range Interpretation Comments HEMOGLOBIN A1c (test code = 70441) 6.2 % HEMOGLOBIN [id number] 00:00:00 Test Item Value Reference Range Interpretation Comments HEMOGLOBIN A1c (test code = 83151) 6.2 % HEMOGLOBIN [id number] 00:00:00 Test Item Value Reference Range Interpretation Comments HEMOGLOBIN A1c (test code = 92430) 6.2 % [id number] 00:00:00 Test Item Value Reference Range Interpretation Comments TSH, THIRD GENERATION (test code 0.988 UIU/ML = 2821) [id number] 00:00:00 Test Item Value Reference Range Interpretation Comments TSH, THIRD GENERATION (test code 0.988 UIU/ML = 2821) [id number] 00:00:00 Test Item Value Reference Range Interpretation Comments TSH, THIRD GENERATION (test code 0.988 UIU/ML = 2821) BASIC METABOLIC [id number] 00:00:00 Test Item Value Reference Range Interpretation Comments GLUCOSE (test code = 2217) 135 MG/DL BUN (test code = 2208) 25 MG/DL CREATININE (test code = 2214) 0.76 MG/DL eGFR AMER. (test code 101 ML/MIN/1.73 = 57515) eGFR NON- AMER. (test 87 ML/MIN/1.73 code = 16663) SODIUM (test code = 2231) 139 MEQ/L POTASSIUM (test code = 2228) 4.7 MEQ/L CHLORIDE (test code = 2215) 99 MEQ/L CARBON DIOXIDE (test code = 26 MEQ/L 2206) CALCIUM (test code = 2209) 9.4 MG/DL BASIC METABOLIC [id number] 00:00:00 Test Item Value Reference Range Interpretation Comments GLUCOSE (test code = 2217) 135 MG/DL BUN (test code = 2208) 25 MG/DL CREATININE (test code = 2214) 0.76 MG/DL eGFR AMER. (test code 101 ML/MIN/1.73 = 31899) eGFR NON- AMER. (test 87 ML/MIN/1.73 code = 04683) SODIUM (test code = 2231) 139 MEQ/L POTASSIUM (test code = 2228) 4.7 MEQ/L CHLORIDE (test code = 2215) 99 MEQ/L CARBON DIOXIDE (test code = 26 MEQ/L 2206) CALCIUM (test code = 2209) 9.4 MG/DL LIPID [id number] 00:00:00 Test Item Value Reference Range Interpretation Comments CHOLESTEROL (test code = 2210) 262 MG/DL TRIGLYCERIDES (test code = 2232) 300 MG/DL HDL CHOLESTEROL (test code = 2220) 36 MG/DL CALC LDL CHOL (test code = 2237) 166 MG/DL RISK RATIO LDL/HDL (test code = 4.61 RATIO 2238) LIPID [id number] 00:00:00 Test Item Value Reference Range Interpretation Comments CHOLESTEROL (test code = 2210) 262 MG/DL TRIGLYCERIDES (test code = 2232) 300 MG/DL HDL CHOLESTEROL (test code = 2220) 36 MG/DL CALC LDL CHOL (test code = 2237) 166 MG/DL RISK RATIO LDL/HDL (test code = 4.61 RATIO 2238) HEMOGLOBIN [id number] 00:00:00 Test Item Value Reference Range Interpretation Comments HEMOGLOBIN A1c (test code = 31076) 6.2 % HEMOGLOBIN [id number] 00:00:00 Test Item Value Reference Range Interpretation Comments HEMOGLOBIN A1c (test code = 76290) 6.2 % HEMOGLOBIN [id number] 00:00:00 Test Item Value Reference Range Interpretation Comments HEMOGLOBIN A1c (test code = 04567) 6.2 % [id number] 00:00:00 Test Item Value Reference Range Interpretation Comments TSH, THIRD GENERATION (test code 0.988 UIU/ML = 2821) [id number] 00:00:00 Test Item Value Reference Range Interpretation Comments TSH, THIRD GENERATION (test code 0.988 UIU/ML = 2821) [id number] 00:00:00 Test Item Value Reference Range Interpretation Comments TSH, THIRD GENERATION (test code 0.988 UIU/ML = 2821) BASIC METABOLIC [id number] 00:00:00 Test Item Value Reference Range Interpretation Comments GLUCOSE (test code = 2217) 135 MG/DL BUN (test code = 2208) 25 MG/DL CREATININE (test code = 2214) 0.76 MG/DL eGFR AMER. (test code 101 ML/MIN/1.73 = 12239) eGFR NON- AMER. (test 87 ML/MIN/1.73 code = 97139) SODIUM (test code = 2231) 139 MEQ/L POTASSIUM (test code = 2228) 4.7 MEQ/L CHLORIDE (test code = 2215) 99 MEQ/L CARBON DIOXIDE (test code = 26 MEQ/L 2206) CALCIUM (test code = 2209) 9.4 MG/DL LIPID [id number] 00:00:00 Test Item Value Reference Range Interpretation Comments CHOLESTEROL (test code = 2210) 262 MG/DL TRIGLYCERIDES (test code = 2232) 300 MG/DL HDL CHOLESTEROL (test code = 2220) 36 MG/DL CALC LDL CHOL (test code = 2237) 166 MG/DL RISK RATIO LDL/HDL (test code = 4.61 RATIO 2238) HEMOGLOBIN [id number] 00:00:00 Test Item Value Reference Range Interpretation Comments HEMOGLOBIN A1c (test code = 84167) 6.2 % HEMOGLOBIN [id number] 00:00:00 Test Item Value Reference Range Interpretation Comments HEMOGLOBIN A1c (test code = 91033) 6.2 % [id number] 00:00:00 Test Item Value Reference Range Interpretation Comments TSH, THIRD GENERATION (test code 0.988 UIU/ML = 2821) [id number] 00:00:00 Test Item Value Reference Range Interpretation Comments TSH, THIRD GENERATION (test code 0.988 UIU/ML = 2821) BASIC METABOLIC [id number] 00:00:00 Test Item Value Reference Range Interpretation Comments GLUCOSE (test code = 2217) 135 MG/DL BUN (test code = 2208) 25 MG/DL CREATININE (test code = 2214) 0.76 MG/DL eGFR AMER. (test code 101 ML/MIN/1.73 = 93923) eGFR NON- AMER. (test 87 ML/MIN/1.73 code = 28787) SODIUM (test code = 2231) 139 MEQ/L POTASSIUM (test code = 2228) 4.7 MEQ/L CHLORIDE (test code = 2215) 99 MEQ/L CARBON DIOXIDE (test code = 26 MEQ/L 2206) CALCIUM (test code = 2209) 9.4 MG/DL BASIC METABOLIC [id number] 00:00:00 Test Item Value Reference Range Interpretation Comments GLUCOSE (test code = 2217) 135 MG/DL BUN (test code = 2208) 25 MG/DL CREATININE (test code = 2214) 0.76 MG/DL eGFR AMER. (test code 101 ML/MIN/1.73 = 61929) eGFR NON- AMER. (test 87 ML/MIN/1.73 code = 96719) SODIUM (test code = 2231) 139 MEQ/L POTASSIUM (test code = 2228) 4.7 MEQ/L CHLORIDE (test code = 2215) 99 MEQ/L CARBON DIOXIDE (test code = 26 MEQ/L 2206) CALCIUM (test code = 2209) 9.4 MG/DL LIPID [id number] 00:00:00 Test Item Value Reference Range Interpretation Comments CHOLESTEROL (test code = 2210) 262 MG/DL TRIGLYCERIDES (test code = 2232) 300 MG/DL HDL CHOLESTEROL (test code = 2220) 36 MG/DL CALC LDL CHOL (test code = 2237) 166 MG/DL RISK RATIO LDL/HDL (test code = 4.61 RATIO 2238) LIPID [id number] 00:00:00 Test Item Value Reference Range Interpretation Comments CHOLESTEROL (test code = 2210) 262 MG/DL TRIGLYCERIDES (test code = 2232) 300 MG/DL HDL CHOLESTEROL (test code = 2220) 36 MG/DL CALC LDL CHOL (test code = 2237) 166 MG/DL RISK RATIO LDL/HDL (test code = 4.61 RATIO 2238) HEMOGLOBIN [id number] 00:00:00 Test Item Value Reference Range Interpretation Comments HEMOGLOBIN A1c (test code = 96209) 6.2 % HEMOGLOBIN [id number] 00:00:00 Test Item Value Reference Range Interpretation Comments HEMOGLOBIN A1c (test code = 94437) 6.2 % HEMOGLOBIN [id number] 00:00:00 Test Item Value Reference Range Interpretation Comments HEMOGLOBIN A1c (test code = 25425) 6.2 % [id number] 00:00:00 Test Item Value Reference Range Interpretation Comments TSH, THIRD GENERATION (test code 0.988 UIU/ML = 2821) [id number] 00:00:00 Test Item Value Reference Range Interpretation Comments TSH, THIRD GENERATION (test code 0.988 UIU/ML = 2821) [id number] 00:00:00 Test Item Value Reference Range Interpretation Comments TSH, THIRD GENERATION (test code 0.988 UIU/ML = 2821) COMPREHENSIVE METABOLIC [id number] 00:00:00 Test Item Value Reference Range Interpretation Comments GLUCOSE (test code = 2217) 109 MG/DL BUN (test code = 2208) 25 MG/DL CREATININE (test code = 2214) 0.78 MG/DL eGFR AMER. (test code 98 ML/MIN/1.73 = 88025) eGFR NON- AMER. (test 84 ML/MIN/1.73 code = 01497) CALC BUN/CREAT (test code = 32 RATIO [...] code = 2219) 25 U/L COMPREHENSIVE METABOLIC [id number] 00:00:00 Test Item Value Reference Range Interpretation Comments GLUCOSE (test code = 2217) 109 MG/DL BUN (test code = 2208) 25 MG/DL CREATININE (test code = 2214) 0.78 MG/DL eGFR AMER. (test code 98 ML/MIN/1.73 = 03341) eGFR NON- AMER. (test 84 ML/MIN/1.73 code = 26390) CALC BUN/CREAT (test code = 32 RATIO [...] (test code = 2219) 25 U/L LIPID [id number] 00:00:00 Test Item Value Reference Range Interpretation Comments CHOLESTEROL (test code = 2210) 295 MG/DL TRIGLYCERIDES (test code = 2232) 218 MG/DL HDL CHOLESTEROL (test code = 2220) 46 MG/DL CALC LDL CHOL (test code = 2237) 205 MG/DL RISK RATIO LDL/HDL (test code = 4.47 RATIO 2238) LIPID [id number] 00:00:00 Test Item Value Reference Range Interpretation Comments CHOLESTEROL (test code = 2210) 295 MG/DL TRIGLYCERIDES (test code = 2232) 218 MG/DL HDL CHOLESTEROL (test code = 2220) 46 MG/DL CALC LDL CHOL (test code = 2237) 205 MG/DL RISK RATIO LDL/HDL (test code = 4.47 RATIO 2238) HEMOGLOBIN [id number] 00:00:00 Test Item Value Reference Range Interpretation Comments HEMOGLOBIN A1c (test code = 79115) 7.0 % HEMOGLOBIN [id number] 00:00:00 Test Item Value Reference Range Interpretation Comments HEMOGLOBIN A1c (test code = 50198) 7.0 % HEMOGLOBIN [id number] 00:00:00 Test Item Value Reference Range Interpretation Comments HEMOGLOBIN A1c (test code = 47249) 7.0 % [id number] 00:00:00 Test Item Value Reference Range Interpretation Comments TSH, THIRD GENERATION (test code 0.565 UIU/ML = 2821) [id number] 00:00:00 Test Item Value Reference Range Interpretation Comments TSH, THIRD GENERATION (test code 0.565 UIU/ML = 2821) [id number] 00:00:00 Test Item Value Reference Range Interpretation Comments TSH, THIRD GENERATION (test code 0.565 UIU/ML = 2821) COMPREHENSIVE METABOLIC [id number] 00:00:00 Test Item Value Reference Range Interpretation Comments GLUCOSE (test code = 2217) 109 MG/DL BUN (test code = 2208) 25 MG/DL CREATININE (test code = 2214) 0.78 MG/DL eGFR AMER. (test code 98 ML/MIN/1.73 = 06488) eGFR NON- AMER. (test 84 ML/MIN/1.73 code = 67506) CALC BUN/CREAT (test code = 32 RATIO [...] code = 2219) 25 U/L COMPREHENSIVE METABOLIC [id number] 00:00:00 Test Item Value Reference Range Interpretation Comments GLUCOSE (test code = 2217) 109 MG/DL BUN (test code = 2208) 25 MG/DL CREATININE (test code = 2214) 0.78 MG/DL eGFR AMER. (test code 98 ML/MIN/1.73 = 34430) eGFR NON- AMER. (test 84 ML/MIN/1.73 code = 69317) CALC BUN/CREAT (test code = 32 RATIO [...] (test code = 2219) 25 U/L LIPID [id number] 00:00:00 Test Item Value Reference Range Interpretation Comments CHOLESTEROL (test code = 2210) 295 MG/DL TRIGLYCERIDES (test code = 2232) 218 MG/DL HDL CHOLESTEROL (test code = 2220) 46 MG/DL CALC LDL CHOL (test code = 2237) 205 MG/DL RISK RATIO LDL/HDL (test code = 4.47 RATIO 2238) LIPID [id number] 00:00:00 Test Item Value Reference Range Interpretation Comments CHOLESTEROL (test code = 2210) 295 MG/DL TRIGLYCERIDES (test code = 2232) 218 MG/DL HDL CHOLESTEROL (test code = 2220) 46 MG/DL CALC LDL CHOL (test code = 2237) 205 MG/DL RISK RATIO LDL/HDL (test code = 4.47 RATIO 2238) HEMOGLOBIN [id number] 00:00:00 Test Item Value Reference Range Interpretation Comments HEMOGLOBIN A1c (test code = 30877) 7.0 % HEMOGLOBIN [id number] 00:00:00 Test Item Value Reference Range Interpretation Comments HEMOGLOBIN A1c (test code = 74113) 7.0 % HEMOGLOBIN [id number] 00:00:00 Test Item Value Reference Range Interpretation Comments HEMOGLOBIN A1c (test code = 00687) 7.0 % [id number] 00:00:00 Test Item Value Reference Range Interpretation Comments TSH, THIRD GENERATION (test code 0.565 UIU/ML = 2821) [id number] 00:00:00 Test Item Value Reference Range Interpretation Comments TSH, THIRD GENERATION (test code 0.565 UIU/ML = 2821) [id number] 00:00:00 Test Item Value Reference Range Interpretation Comments TSH, THIRD GENERATION (test code 0.565 UIU/ML = 2821) COMPREHENSIVE METABOLIC [id number] 00:00:00 Test Item Value Reference Range Interpretation Comments GLUCOSE (test code = 2217) 109 MG/DL BUN (test code = 2208) 25 MG/DL CREATININE (test code = 2214) 0.78 MG/DL eGFR AMER. (test code 98 ML/MIN/1.73 = 92185) eGFR NON- AMER. (test 84 ML/MIN/1.73 code = 71643) CALC BUN/CREAT (test code = 32 RATIO [...] (test code = 2219) 25 U/L LIPID [id number] 00:00:00 Test Item Value Reference Range Interpretation Comments CHOLESTEROL (test code = 2210) 295 MG/DL TRIGLYCERIDES (test code = 2232) 218 MG/DL HDL CHOLESTEROL (test code = 2220) 46 MG/DL CALC LDL CHOL (test code = 2237) 205 MG/DL RISK RATIO LDL/HDL (test code = 4.47 RATIO 2238) HEMOGLOBIN [id number] 00:00:00 Test Item Value Reference Range Interpretation Comments HEMOGLOBIN A1c (test code = 49943) 7.0 % HEMOGLOBIN [id number] 00:00:00 Test Item Value Reference Range Interpretation Comments HEMOGLOBIN A1c (test code = 57281) 7.0 % [id number] 00:00:00 Test Item Value Reference Range Interpretation Comments TSH, THIRD GENERATION (test code 0.565 UIU/ML = 2821) [id number] 00:00:00 Test Item Value Reference Range Interpretation Comments TSH, THIRD GENERATION (test code 0.565 UIU/ML = 2821) COMPREHENSIVE METABOLIC [id number] 00:00:00 Test Item Value Reference Range Interpretation Comments GLUCOSE (test code = 2217) 109 MG/DL BUN (test code = 2208) 25 MG/DL CREATININE (test code = 2214) 0.78 MG/DL eGFR AMER. (test code 98 ML/MIN/1.73 = 80859) eGFR NON- AMER. (test 84 ML/MIN/1.73 code = 89649) CALC BUN/CREAT (test code = 32 RATIO [...] code = 2219) 25 U/L COMPREHENSIVE METABOLIC [id number] 00:00:00 Test Item Value Reference Range Interpretation Comments GLUCOSE (test code = 2217) 109 MG/DL BUN (test code = 2208) 25 MG/DL CREATININE (test code = 2214) 0.78 MG/DL eGFR AMER. (test code 98 ML/MIN/1.73 = 15585) eGFR NON- AMER. (test 84 ML/MIN/1.73 code = 25112) CALC BUN/CREAT (test code = 32 RATIO [...] (test code = 2219) 25 U/L LIPID [id number] 00:00:00 Test Item Value Reference Range Interpretation Comments CHOLESTEROL (test code = 2210) 295 MG/DL TRIGLYCERIDES (test code = 2232) 218 MG/DL HDL CHOLESTEROL (test code = 2220) 46 MG/DL CALC LDL CHOL (test code = 2237) 205 MG/DL RISK RATIO LDL/HDL (test code = 4.47 RATIO 2238) LIPID [id number] 00:00:00 Test Item Value Reference Range Interpretation Comments CHOLESTEROL (test code = 2210) 295 MG/DL TRIGLYCERIDES (test code = 2232) 218 MG/DL HDL CHOLESTEROL (test code = 2220) 46 MG/DL CALC LDL CHOL (test code = 2237) 205 MG/DL RISK RATIO LDL/HDL (test code = 4.47 RATIO 2238) HEMOGLOBIN [id number] 00:00:00 Test Item Value Reference Range Interpretation Comments HEMOGLOBIN A1c (test code = 39741) 7.0 % HEMOGLOBIN [id number] 00:00:00 Test Item Value Reference Range Interpretation Comments HEMOGLOBIN A1c (test code = 08464) 7.0 % HEMOGLOBIN [id number] 00:00:00 Test Item Value Reference Range Interpretation Comments HEMOGLOBIN A1c (test code = 23708) 7.0 % [id number] 00:00:00 Test Item Value Reference Range Interpretation Comments TSH, THIRD GENERATION (test code 0.565 UIU/ML = 2821) [id number] 00:00:00 Test Item Value Reference Range Interpretation Comments TSH, THIRD GENERATION (test code 0.565 UIU/ML = 2821) [id number] 00:00:00 Test Item Value Reference Range Interpretation Comments TSH, THIRD GENERATION (test code 0.565 UIU/ML = 2821) [id number] 00:00:00 Test Item Value Reference Range Interpretation Comments TSH, THIRD GENERATION (test code 0.379 UIU/ML = 2821) [id number] 00:00:00 Test Item Value Reference Range Interpretation Comments TSH, THIRD GENERATION (test code 0.379 UIU/ML = 2821) [id number] 00:00:00 Test Item Value Reference Range Interpretation Comments TSH, THIRD GENERATION (test code 0.379 UIU/ML = 2821) [id number] 00:00:00 Test Item Value Reference Range Interpretation Comments TSH, THIRD GENERATION (test code 0.379 UIU/ML = 2821) [id number] 00:00:00 Test Item Value Reference Range Interpretation Comments TSH, THIRD GENERATION (test code 0.379 UIU/ML = 2821) [id number] 00:00:00 Test Item Value Reference Range Interpretation Comments TSH, THIRD GENERATION (test code 0.379 UIU/ML = 2821) [id number] 00:00:00 Test Item Value Reference Range Interpretation Comments TSH, THIRD GENERATION (test code 0.379 UIU/ML = 2821) [id number] 00:00:00 Test Item Value Reference Range Interpretation Comments TSH, THIRD GENERATION (test code 0.379 UIU/ML = 2821) [id number] 00:00:00 Test Item Value Reference Range Interpretation Comments TSH, THIRD GENERATION (test code 0.379 UIU/ML = 2821) [id number] 00:00:00 Test Item Value Reference Range Interpretation Comments TSH, THIRD GENERATION (test code 0.379 UIU/ML = 2821) [id number] 00:00:00 Test Item Value Reference Range Interpretation Comments TSH, THIRD GENERATION (test code 0.379 UIU/ML = 2821) CULTURE, [id number] 00:00:00 Test Item Value Reference Range Interpretation Comments CULTURE, URINE (test SPECIMEN NUMBER: code = 16966) [id number] CULTURE, [id number] 00:00:00 Test Item Value Reference Range Interpretation Comments CULTURE, URINE (test SPECIMEN NUMBER: code = 02330) [id number] CULTURE, [id number] 00:00:00 Test Item Value Reference Range Interpretation Comments CULTURE, URINE (test SPECIMEN NUMBER: code = 14887) [id number] CULTURE, [id number] 00:00:00 Test Item Value Reference Range Interpretation Comments CULTURE, URINE (test SPECIMEN NUMBER: code = 03335) [id number] CULTURE, [id number] 00:00:00 Test Item Value Reference Range Interpretation Comments CULTURE, URINE (test SPECIMEN NUMBER: code = 64892) [id number] CULTURE, [id number] 00:00:00 Test Item Value Reference Range Interpretation Comments CULTURE, URINE (test SPECIMEN NUMBER: code = 53086) [id number] CULTURE, [id number] 00:00:00 Test Item Value Reference Range Interpretation Comments CULTURE, URINE (test SPECIMEN NUMBER: code = 72410) [id number] COMPREHENSIVE METABOLIC [id number] 00:00:00 Test Item Value Reference Range Interpretation Comments GLUCOSE (test code = 2217) 128 MG/DL BUN (test code = 2208) 26 MG/DL CREATININE (test code = 2214) 0.92 MG/DL eGFR AMER. (test code 81 ML/MIN/1.73 = 49061) eGFR NON- AMER. (test 70 ML/MIN/1.73 code = 63029) CALC BUN/CREAT (test code = 28 RATIO [...] code = 2219) 29 U/L COMPREHENSIVE METABOLIC [id number] 00:00:00 Test Item Value Reference Range Interpretation Comments GLUCOSE (test code = 2217) 128 MG/DL BUN (test code = 2208) 26 MG/DL CREATININE (test code = 2214) 0.92 MG/DL eGFR AMER. (test code 81 ML/MIN/1.73 = 14499) eGFR NON- AMER. (test 70 ML/MIN/1.73 code = 60827) CALC BUN/CREAT (test code = 28 RATIO [...] code = 2219) 29 U/L ACUTE HEPATITIS [id number] 00:00:00 Test Item Value Reference Range Interpretation Comments HEPATITIS A IgM (test code = NON-REACTIVE 48566) HEPATITIS B CORE IgM (test code NON-REACTIVE = 4644) HEPATITIS B SURF AG (test code = NON-REACTIVE 2739) HEPATITIS C ANTIBODY (test code NON-REACTIVE = 4675) INTERPRETATION HEPATITIS A: (NOTE) (test code = 2552) INTERPRETATION HEPATITIS B: (NOTE) (test code = 80374) INTERPRETATION HEPATITIS C: (NOTE) (test code = 11867) ACUTE HEPATITIS [id number] 00:00:00 Test Item Value Reference Range Interpretation Comments HEPATITIS A IgM (test code = NON-REACTIVE 22029) HEPATITIS B CORE IgM (test code NON-REACTIVE = 4644) HEPATITIS B SURF AG (test code = NON-REACTIVE 2739) HEPATITIS C ANTIBODY (test code NON-REACTIVE = 4675) INTERPRETATION HEPATITIS A: (NOTE) (test code = 2552) INTERPRETATION HEPATITIS B: (NOTE) (test code = 19552) INTERPRETATION HEPATITIS C: (NOTE) (test code = 43968) [id number] 00:00:00 Test Item Value Reference Range Interpretation Comments AMYLASE (test code = 2205) 32 U/L [id number] 00:00:00 Test Item Value Reference Range Interpretation Comments AMYLASE (test code = 2205) 32 U/L [id number] 00:00:00 Test Item Value Reference Range Interpretation Comments LIPASE (test code = 205) 22 U/L [id number] 00:00:00 Test Item Value Reference Range Interpretation Comments LIPASE (test code = 205) 22 U/L [id number] 00:00:00 Test Item Value Reference Range Interpretation Comments LIPASE (test code = 205) 22 U/L COMPREHENSIVE METABOLIC [id number] 00:00:00 Test Item Value Reference Range Interpretation Comments GLUCOSE (test code = 2217) 128 MG/DL BUN (test code = 2208) 26 MG/DL CREATININE (test code = 2214) 0.92 MG/DL eGFR AMER. (test code 81 ML/MIN/1.73 = 79862) eGFR NON- AMER. (test 70 ML/MIN/1.73 code = 07359) CALC BUN/CREAT (test code = 28 RATIO [...] code = 2219) 29 U/L COMPREHENSIVE METABOLIC [id number] 00:00:00 Test Item Value Reference Range Interpretation Comments GLUCOSE (test code = 2217) 128 MG/DL BUN (test code = 2208) 26 MG/DL CREATININE (test code = 2214) 0.92 MG/DL eGFR AMER. (test code 81 ML/MIN/1.73 = 03374) eGFR NON- AMER. (test 70 ML/MIN/1.73 code = 42709) CALC BUN/CREAT (test code = 28 RATIO [...] code = 2219) 29 U/L ACUTE HEPATITIS [id number] 00:00:00 Test Item Value Reference Range Interpretation Comments HEPATITIS A IgM (test code = NON-REACTIVE 58080) HEPATITIS B CORE IgM (test code NON-REACTIVE = 4644) HEPATITIS B SURF AG (test code = NON-REACTIVE 2739) HEPATITIS C ANTIBODY (test code NON-REACTIVE = 4675) INTERPRETATION HEPATITIS A: (NOTE) (test code = 2552) INTERPRETATION HEPATITIS B: (NOTE) (test code = 64939) INTERPRETATION HEPATITIS C: (NOTE) (test code = 12146) ACUTE HEPATITIS [id number] 00:00:00 Test Item Value Reference Range Interpretation Comments HEPATITIS A IgM (test code = NON-REACTIVE 36668) HEPATITIS B CORE IgM (test code NON-REACTIVE = 4644) HEPATITIS B SURF AG (test code = NON-REACTIVE 2739) HEPATITIS C ANTIBODY (test code NON-REACTIVE = 4675) INTERPRETATION HEPATITIS A: (NOTE) (test code = 2552) INTERPRETATION HEPATITIS B: (NOTE) (test code = 42944) INTERPRETATION HEPATITIS C: (NOTE) (test code = 40192) [id number] 00:00:00 Test Item Value Reference Range Interpretation Comments AMYLASE (test code = 2205) 32 U/L [id number] 00:00:00 Test Item Value Reference Range Interpretation Comments AMYLASE (test code = 2205) 32 U/L [id number] 00:00:00 Test Item Value Reference Range Interpretation Comments LIPASE (test code = 2058) 22 U/L [id number] 00:00:00 Test Item Value Reference Range Interpretation Comments LIPASE (test code = 2058) 22 U/L [id number] 00:00:00 Test Item Value Reference Range Interpretation Comments LIPASE (test code = 2058) 22 U/L COMPREHENSIVE METABOLIC [id number] 00:00:00 Test Item Value Reference Range Interpretation Comments GLUCOSE (test code = 2217) 128 MG/DL BUN (test code = 2208) 26 MG/DL CREATININE (test code = 2214) 0.92 MG/DL eGFR AMER. (test code 81 ML/MIN/1.73 = 53077) eGFR NON- AMER. (test 70 ML/MIN/1.73 code = 82160) CALC BUN/CREAT (test code = 28 RATIO [...] code = 2219) 29 U/L ACUTE HEPATITIS [id number] 00:00:00 Test Item Value Reference Range Interpretation Comments HEPATITIS A IgM (test code = NON-REACTIVE 08983) HEPATITIS B CORE IgM (test code NON-REACTIVE = 6370) HEPATITIS B SURF AG (test code = NON-REACTIVE 9171) HEPATITIS C ANTIBODY (test code NON-REACTIVE = 3289) INTERPRETATION HEPATITIS A: (NOTE) (test code = 2552) INTERPRETATION HEPATITIS B: (NOTE) (test code = 46840) INTERPRETATION HEPATITIS C: (NOTE) (test code = 59996) [id number] 00:00:00 Test Item Value Reference Range Interpretation Comments AMYLASE (test code = 2205) 32 U/L [id number] 00:00:00 Test Item Value Reference Range Interpretation Comments LIPASE (test code = 2058) 22 U/L [id number] 00:00:00 Test Item Value Reference Range Interpretation Comments LIPASE (test code = 2058) 22 U/L COMPREHENSIVE METABOLIC [id number] 00:00:00 Test Item Value Reference Range Interpretation Comments GLUCOSE (test code = 2217) 128 MG/DL BUN (test code = 2208) 26 MG/DL CREATININE (test code = 2214) 0.92 MG/DL eGFR AMER. (test code 81 ML/MIN/1.73 = 73196) eGFR NON- AMER. (test 70 ML/MIN/1.73 code = 68972) CALC BUN/CREAT (test code = 28 RATIO [...] code = 2219) 29 U/L COMPREHENSIVE METABOLIC [id number] 00:00:00 Test Item Value Reference Range Interpretation Comments GLUCOSE (test code = 2217) 128 MG/DL BUN (test code = 2208) 26 MG/DL CREATININE (test code = 2214) 0.92 MG/DL eGFR AMER. (test code 81 ML/MIN/1.73 = 15265) eGFR NON- AMER. (test 70 ML/MIN/1.73 code = 68817) CALC BUN/CREAT (test code = 28 RATIO [...] code = 2219) 29 U/L ACUTE HEPATITIS [id number] 00:00:00 Test Item Value Reference Range Interpretation Comments HEPATITIS A IgM (test code = NON-REACTIVE 66375) HEPATITIS B CORE IgM (test code NON-REACTIVE = 4644) HEPATITIS B SURF AG (test code = NON-REACTIVE 2739) HEPATITIS C ANTIBODY (test code NON-REACTIVE = 4675) INTERPRETATION HEPATITIS A: (NOTE) (test code = 2552) INTERPRETATION HEPATITIS B: (NOTE) (test code = 83089) INTERPRETATION HEPATITIS C: (NOTE) (test code = 08422) ACUTE HEPATITIS [id number] 00:00:00 Test Item Value Reference Range Interpretation Comments HEPATITIS A IgM (test code = NON-REACTIVE 47415) HEPATITIS B CORE IgM (test code NON-REACTIVE = 4644) HEPATITIS B SURF AG (test code = NON-REACTIVE 2739) HEPATITIS C ANTIBODY (test code NON-REACTIVE = 4675) INTERPRETATION HEPATITIS A: (NOTE) (test code = 2552) INTERPRETATION HEPATITIS B: (NOTE) (test code = 72695) INTERPRETATION HEPATITIS C: (NOTE) (test code = 11913) [id number] 00:00:00 Test Item Value Reference Range Interpretation Comments AMYLASE (test code = 2205) 32 U/L [id number] 00:00:00 Test Item Value Reference Range Interpretation Comments AMYLASE (test code = 2205) 32 U/L [id number] 00:00:00 Test Item Value Reference Range Interpretation Comments LIPASE (test code = 2057) 22 U/L [id number] 00:00:00 Test Item Value Reference Range Interpretation Comments LIPASE (test code = 2057) 22 U/L [id number] 00:00:00 Test Item Value Reference Range Interpretation Comments LIPASE (test code = 2057) 22 U/L [id number] 00:00:00 Test Item Value Reference Range Interpretation Comments TSH, THIRD GENERATION (test code 4.890 UIU/ML = 2821) [id number] 00:00:00 Test Item Value Reference Range Interpretation Comments TSH, THIRD GENERATION (test code 4.890 UIU/ML = 2821) [id number] 00:00:00 Test Item Value Reference Range Interpretation Comments TSH, THIRD GENERATION (test code 4.890 UIU/ML = 2821) COMPREHENSIVE METABOLIC [id number] 00:00:00 Test Item Value Reference Range Interpretation Comments GLUCOSE (test code = 2217) 121 MG/DL BUN (test code = 2208) 40 MG/DL CREATININE (test code = 2214) 1.48 MG/DL eGFR AMER. (test code 45 ML/MIN/1.73 = 43159) eGFR NON- AMER. (test 39 ML/MIN/1.73 code = 32434) CALC BUN/CREAT (test code = 27 RATIO [...] code = 2219) 20 U/L COMPREHENSIVE METABOLIC [id number] 00:00:00 Test Item Value Reference Range Interpretation Comments GLUCOSE (test code = 2217) 121 MG/DL BUN (test code = 2208) 40 MG/DL CREATININE (test code = 2214) 1.48 MG/DL eGFR AMER. (test code 45 ML/MIN/1.73 = 87468) eGFR NON- AMER. (test 39 ML/MIN/1.73 code = 58447) CALC BUN/CREAT (test code = 27 RATIO [...] ALT (test code = 2219) 20 U/L [id number] 00:00:00 Test Item Value Reference Range Interpretation Comments TSH, THIRD GENERATION (test code 4.890 UIU/ML = 2821) [id number] 00:00:00 Test Item Value Reference Range Interpretation Comments TSH, THIRD GENERATION (test code 4.890 UIU/ML = 2821) [id number] 00:00:00 Test Item Value Reference Range Interpretation Comments TSH, THIRD GENERATION (test code 4.890 UIU/ML = 2821) COMPREHENSIVE METABOLIC [id number] 00:00:00 Test Item Value Reference Range Interpretation Comments GLUCOSE (test code = 2217) 121 MG/DL BUN (test code = 2208) 40 MG/DL CREATININE (test code = 2214) 1.48 MG/DL eGFR AMER. (test code 45 ML/MIN/1.73 = 42266) eGFR NON- AMER. (test 39 ML/MIN/1.73 code = 71534) CALC BUN/CREAT (test code = 27 RATIO [...] code = 2219) 20 U/L COMPREHENSIVE METABOLIC [id number] 00:00:00 Test Item Value Reference Range Interpretation Comments GLUCOSE (test code = 2217) 121 MG/DL BUN (test code = 2208) 40 MG/DL CREATININE (test code = 2214) 1.48 MG/DL eGFR AMER. (test code 45 ML/MIN/1.73 = 81698) eGFR NON- AMER. (test 39 ML/MIN/1.73 code = 13259) CALC BUN/CREAT (test code = 27 RATIO [...] ALT (test code = 2219) 20 U/L [id number] 00:00:00 Test Item Value Reference Range Interpretation Comments TSH, THIRD GENERATION (test code 4.890 UIU/ML = 2821) [id number] 00:00:00 Test Item Value Reference Range Interpretation Comments TSH, THIRD GENERATION (test code 4.890 UIU/ML = 2821) COMPREHENSIVE METABOLIC [id number] 00:00:00 Test Item Value Reference Range Interpretation Comments GLUCOSE (test code = 2217) 121 MG/DL BUN (test code = 2208) 40 MG/DL CREATININE (test code = 2214) 1.48 MG/DL eGFR AMER. (test code 45 ML/MIN/1.73 = 87630) eGFR NON- AMER. (test 39 ML/MIN/1.73 code = 82237) CALC BUN/CREAT (test code = 27 RATIO [...] ALT (test code = 2219) 20 U/L [id number] 00:00:00 Test Item Value Reference Range Interpretation Comments TSH, THIRD GENERATION (test code 4.890 UIU/ML = 2821) [id number] 00:00:00 Test Item Value Reference Range Interpretation Comments TSH, THIRD GENERATION (test code 4.890 UIU/ML = 2821) [id number] 00:00:00 Test Item Value Reference Range Interpretation Comments TSH, THIRD GENERATION (test code 4.890 UIU/ML = 2821) COMPREHENSIVE METABOLIC [id number] 00:00:00 Test Item Value Reference Range Interpretation Comments GLUCOSE (test code = 2217) 121 MG/DL BUN (test code = 2208) 40 MG/DL CREATININE (test code = 2214) 1.48 MG/DL eGFR AMER. (test code 45 ML/MIN/1.73 = 51419) eGFR NON- AMER. (test 39 ML/MIN/1.73 code = 50634) CALC BUN/CREAT (test code = 27 RATIO [...] code = 2219) 20 U/L COMPREHENSIVE METABOLIC [id number] 00:00:00 Test Item Value Reference Range Interpretation Comments GLUCOSE (test code = 2217) 121 MG/DL BUN (test code = 2208) 40 MG/DL CREATININE (test code = 2214) 1.48 MG/DL eGFR AMER. (test code 45 ML/MIN/1.73 = 58341) eGFR NON- AMER. (test 39 ML/MIN/1.73 code = 62917) CALC BUN/CREAT (test code = 27 RATIO [...] (test code = 2219) 20 U/L LIPID [id number] 00:00:00 Test Item Value Reference Range Interpretation Comments CHOLESTEROL (test code = 2210) 261 MG/DL TRIGLYCERIDES (test code = 2232) 165 MG/DL HDL CHOLESTEROL (test code = 2220) 58 MG/DL CALC LDL CHOL (test code = 2237) 170 MG/DL RISK RATIO LDL/HDL (test code = 2.93 RATIO 2238) LIPID [id number] 00:00:00 Test Item Value Reference Range Interpretation Comments CHOLESTEROL (test code = 2210) 261 MG/DL TRIGLYCERIDES (test code = 2232) 165 MG/DL HDL CHOLESTEROL (test code = 2220) 58 MG/DL CALC LDL CHOL (test code = 2237) 170 MG/DL RISK RATIO LDL/HDL (test code = 2.93 RATIO 2238) CBC W/AUTO [id number] 00:00:00 Test Item Value Reference Range Interpretation [...] code = 1015) 378 K/UL CBC W/AUTO [id number] 00:00:00 Test Item Value Reference Range Interpretation [...] code = 1015) 378 K/UL CBC W/AUTO [id number] 00:00:00 Test Item Value Reference Range Interpretation [...] (test code = 1015) 378 K/UL HEMOGLOBIN [id number] 00:00:00 Test Item Value Reference Range Interpretation Comments HEMOGLOBIN A1c (test code = 31834) 6.4 % HEMOGLOBIN [id number] 00:00:00 Test Item Value Reference Range Interpretation Comments HEMOGLOBIN A1c (test code = 69952) 6.4 % HEMOGLOBIN [id number] 00:00:00 Test Item Value Reference Range Interpretation Comments HEMOGLOBIN A1c (test code = 67361) 6.4 % [id number] 00:00:00 Test Item Value Reference Range Interpretation Comments TSH (test code = 2821) 5.290 UIU/ML [id number] 00:00:00 Test Item Value Reference Range Interpretation Comments TSH (test code = 2821) 5.290 UIU/ML [id number] 00:00:00 Test Item Value Reference Range Interpretation Comments TSH (test code = 2821) 5.290 UIU/ML LIPID [id number] 00:00:00 Test Item Value Reference Range Interpretation Comments CHOLESTEROL (test code = 2210) 261 MG/DL TRIGLYCERIDES (test code = 2232) 165 MG/DL HDL CHOLESTEROL (test code = 2220) 58 MG/DL CALC LDL CHOL (test code = 2237) 170 MG/DL RISK RATIO LDL/HDL (test code = 2.93 RATIO 2238) LIPID [id number] 00:00:00 Test Item Value Reference Range Interpretation Comments CHOLESTEROL (test code = 2210) 261 MG/DL TRIGLYCERIDES (test code = 2232) 165 MG/DL HDL CHOLESTEROL (test code = 2220) 58 MG/DL CALC LDL CHOL (test code = 2237) 170 MG/DL RISK RATIO LDL/HDL (test code = 2.93 RATIO 2238) CBC W/AUTO [id number] 00:00:00 Test Item Value Reference Range Interpretation [...] code = 1015) 378 K/UL CBC W/AUTO [id number] 00:00:00 Test Item Value Reference Range Interpretation [...] code = 1015) 378 K/UL CBC W/AUTO [id number] 00:00:00 Test Item Value Reference Range Interpretation [...] (test code = 1015) 378 K/UL HEMOGLOBIN [id number] 00:00:00 Test Item Value Reference Range Interpretation Comments HEMOGLOBIN A1c (test code = 99338) 6.4 % HEMOGLOBIN [id number] 00:00:00 Test Item Value Reference Range Interpretation Comments HEMOGLOBIN A1c (test code = 96029) 6.4 % HEMOGLOBIN [id number] 00:00:00 Test Item Value Reference Range Interpretation Comments HEMOGLOBIN A1c (test code = 08361) 6.4 % [id number] 00:00:00 Test Item Value Reference Range Interpretation Comments TSH (test code = 2821) 5.290 UIU/ML [id number] 00:00:00 Test Item Value Reference Range Interpretation Comments TSH (test code = 2821) 5.290 UIU/ML [id number] 00:00:00 Test Item Value Reference Range Interpretation Comments TSH (test code = 2821) 5.290 UIU/ML LIPID [id number] 00:00:00 Test Item Value Reference Range Interpretation Comments CHOLESTEROL (test code = 2210) 261 MG/DL TRIGLYCERIDES (test code = 2232) 165 MG/DL HDL CHOLESTEROL (test code = 2220) 58 MG/DL CALC LDL CHOL (test code = 2237) 170 MG/DL RISK RATIO LDL/HDL (test code = 2.93 RATIO 2238) CBC W/AUTO [id number] 00:00:00 Test Item Value Reference Range Interpretation [...] code = 1015) 378 K/UL CBC W/AUTO [id number] 00:00:00 Test Item Value Reference Range Interpretation [...] (test code = 1015) 378 K/UL HEMOGLOBIN [id number] 00:00:00 Test Item Value Reference Range Interpretation Comments HEMOGLOBIN A1c (test code = 10634) 6.4 % HEMOGLOBIN [id number] 00:00:00 Test Item Value Reference Range Interpretation Comments HEMOGLOBIN A1c (test code = 80106) 6.4 % [id number] 00:00:00 Test Item Value Reference Range Interpretation Comments TSH (test code = 2821) 5.290 UIU/ML [id number] 00:00:00 Test Item Value Reference Range Interpretation Comments TSH (test code = 2821) 5.290 UIU/ML LIPID [id number] 00:00:00 Test Item Value Reference Range Interpretation Comments CHOLESTEROL (test code = 2210) 261 MG/DL TRIGLYCERIDES (test code = 2232) 165 MG/DL HDL CHOLESTEROL (test code = 2220) 58 MG/DL CALC LDL CHOL (test code = 2237) 170 MG/DL RISK RATIO LDL/HDL (test code = 2.93 RATIO 2238) LIPID [id number] 00:00:00 Test Item Value Reference Range Interpretation Comments CHOLESTEROL (test code = 2210) 261 MG/DL TRIGLYCERIDES (test code = 2232) 165 MG/DL HDL CHOLESTEROL (test code = 2220) 58 MG/DL CALC LDL CHOL (test code = 2237) 170 MG/DL RISK RATIO LDL/HDL (test code = 2.93 RATIO 2238) CBC W/AUTO [id number] 00:00:00 Test Item Value Reference Range Interpretation [...] code = 1015) 378 K/UL CBC W/AUTO [id number] 00:00:00 Test Item Value Reference Range Interpretation [...] code = 1015) 378 K/UL CBC W/AUTO [id number] 00:00:00 Test Item Value Reference Range Interpretation [...] (test code = 1015) 378 K/UL HEMOGLOBIN [id number] 00:00:00 Test Item Value Reference Range Interpretation Comments HEMOGLOBIN A1c (test code = 08535) 6.4 % HEMOGLOBIN [id number] 00:00:00 Test Item Value Reference Range Interpretation Comments HEMOGLOBIN A1c (test code = 33837) 6.4 % HEMOGLOBIN [id number] 00:00:00 Test Item Value Reference Range Interpretation Comments HEMOGLOBIN A1c (test code = 92874) 6.4 % [id number] 00:00:00 Test Item Value Reference Range Interpretation Comments TSH (test code = 2821) 5.290 UIU/ML [id number] 00:00:00 Test Item Value Reference Range Interpretation Comments TSH (test code = 2821) 5.290 UIU/ML [id number] 00:00:00 Test Item Value Reference Range Interpretation [...] code = 2821) 1.030 UIU/ML COMPREHENSIVE METABOLIC [id number] 00:00:00 Test Item Value Reference Range Interpretation Comments GLUCOSE (test code = 2217) 106 MG/DL BUN (test code = 2208) 23 MG/DL CREATININE (test code = 2214) 0.66 MG/DL eGFR AMER. (test code 114 ML/MIN/1.73 = 34448) eGFR NON- AMER. (test 99 ML/MIN/1.73 code = 21245) CALC BUN/CREAT (test code = 35 RATIO [...] code = 2219) 31 U/L COMPREHENSIVE METABOLIC [id number] 00:00:00 Test Item Value Reference Range Interpretation Comments GLUCOSE (test code = 2217) 106 MG/DL BUN (test code = 2208) 23 MG/DL CREATININE (test code = 2214) 0.66 MG/DL eGFR AMER. (test code 114 ML/MIN/1.73 = 07459) eGFR NON- AMER. (test 99 ML/MIN/1.73 code = 25885) CALC BUN/CREAT (test code = 35 RATIO [...] code = 2821) 0.335 UIU/ML COMPREHENSIVE METABOLIC [id number] 00:00:00 Test Item Value Reference Range Interpretation Comments GLUCOSE (test code = 2217) 106 MG/DL BUN (test code = 2208) 23 MG/DL CREATININE (test code = 2214) 0.66 MG/DL eGFR AMER. (test code 114 ML/MIN/1.73 = 23638) eGFR NON- AMER. (test 99 ML/MIN/1.73 code = 93614) CALC BUN/CREAT (test code = 35 RATIO [...] code = 2219) 31 U/L COMPREHENSIVE METABOLIC [id number] 00:00:00 Test Item Value Reference Range Interpretation Comments GLUCOSE (test code = 2217) 106 MG/DL BUN (test code = 2208) 23 MG/DL CREATININE (test code = 2214) 0.66 MG/DL eGFR AMER. (test code 114 ML/MIN/1.73 = 86009) eGFR NON- AMER. (test 99 ML/MIN/1.73 code = 41986) CALC BUN/CREAT (test code = 35 RATIO [...] code = 2821) 0.335 UIU/ML COMPREHENSIVE METABOLIC [id number] 00:00:00 Test Item Value Reference Range Interpretation Comments GLUCOSE (test code = 2217) 106 MG/DL BUN (test code = 2208) 23 MG/DL CREATININE (test code = 2214) 0.66 MG/DL eGFR AMER. (test code 114 ML/MIN/1.73 = 85081) eGFR NON- AMER. (test 99 ML/MIN/1.73 code = 75846) CALC BUN/CREAT (test code = 35 RATIO [...] code = 2821) 0.335 UIU/ML COMPREHENSIVE METABOLIC [id number] 00:00:00 Test Item Value Reference Range Interpretation Comments GLUCOSE (test code = 2217) 106 MG/DL BUN (test code = 2208) 23 MG/DL CREATININE (test code = 2214) 0.66 MG/DL eGFR AMER. (test code 114 ML/MIN/1.73 = 01706) eGFR NON- AMER. (test 99 ML/MIN/1.73 code = 74768) CALC BUN/CREAT (test code = 35 RATIO [...] code = 2219) 31 U/L COMPREHENSIVE METABOLIC [id number] 00:00:00 Test Item Value Reference Range Interpretation Comments GLUCOSE (test code = 2217) 106 MG/DL BUN (test code = 2208) 23 MG/DL CREATININE (test code = 2214) 0.66 MG/DL eGFR AMER. (test code 114 ML/MIN/1.73 = 64077) eGFR NON- AMER. (test 99 ML/MIN/1.73 code = 13674) CALC BUN/CREAT (test code = 35 RATIO [...] code = 2821) 0.335 UIU/ML COMPREHENSIVE METABOLIC [id number] 00:00:00 Test Item Value Reference Range Interpretation Comments GLUCOSE (test code = 2217) 103 MG/DL BUN (test code = 2208) 15 MG/DL CREATININE (test code = 2214) 0.77 MG/DL eGFR AMER. (test code 101 ML/MIN/1.73 = 96527) eGFR NON- AMER. (test 87 ML/MIN/1.73 code = 22874) CALC BUN/CREAT (test code = 19 RATIO [...] code = 2219) 24 U/L COMPREHENSIVE METABOLIC [id number] 00:00:00 Test Item Value Reference Range Interpretation Comments GLUCOSE (test code = 2217) 103 MG/DL BUN (test code = 2208) 15 MG/DL CREATININE (test code = 2214) 0.77 MG/DL eGFR AMER. (test code 101 ML/MIN/1.73 = 17161) eGFR NON- AMER. (test 87 ML/MIN/1.73 code = 98652) CALC BUN/CREAT (test code = 19 RATIO [...] code = 2821) 0.424 UIU/ML COMPREHENSIVE METABOLIC [id number] 00:00:00 Test Item Value Reference Range Interpretation Comments GLUCOSE (test code = 2217) 103 MG/DL BUN (test code = 2208) 15 MG/DL CREATININE (test code = 2214) 0.77 MG/DL eGFR AMER. (test code 101 ML/MIN/1.73 = 92850) eGFR NON- AMER. (test 87 ML/MIN/1.73 code = 76359) CALC BUN/CREAT (test code = 19 RATIO [...] code = 2219) 24 U/L COMPREHENSIVE METABOLIC [id number] 00:00:00 Test Item Value Reference Range Interpretation Comments GLUCOSE (test code = 2217) 103 MG/DL BUN (test code = 2208) 15 MG/DL CREATININE (test code = 2214) 0.77 MG/DL eGFR AMER. (test code 101 ML/MIN/1.73 = 26823) eGFR NON- AMER. (test 87 ML/MIN/1.73 code = 24863) CALC BUN/CREAT (test code = 19 RATIO [...] code = 2821) 0.424 UIU/ML COMPREHENSIVE METABOLIC [id number] 00:00:00 Test Item Value Reference Range Interpretation Comments GLUCOSE (test code = 2217) 103 MG/DL BUN (test code = 2208) 15 MG/DL CREATININE (test code = 2214) 0.77 MG/DL eGFR AMER. (test code 101 ML/MIN/1.73 = 87185) eGFR NON- AMER. (test 87 ML/MIN/1.73 code = 25105) CALC BUN/CREAT (test code = 19 RATIO [...] code = 2821) 0.424 UIU/ML COMPREHENSIVE METABOLIC [id number] 00:00:00 Test Item Value Reference Range Interpretation Comments GLUCOSE (test code = 2217) 103 MG/DL BUN (test code = 2208) 15 MG/DL CREATININE (test code = 2214) 0.77 MG/DL eGFR AMER. (test code 101 ML/MIN/1.73 = 72718) eGFR NON- AMER. (test 87 ML/MIN/1.73 code = 23781) CALC BUN/CREAT (test code = 19 RATIO [...] code = 2219) 24 U/L COMPREHENSIVE METABOLIC [id number] 00:00:00 Test Item Value Reference Range Interpretation Comments GLUCOSE (test code = 2217) 103 MG/DL BUN (test code = 2208) 15 MG/DL CREATININE (test code = 2214) 0.77 MG/DL eGFR AMER. (test code 101 ML/MIN/1.73 = 36677) eGFR NON- AMER. (test 87 ML/MIN/1.73 code = 88033) CALC BUN/CREAT (test code = 19 RATIO [...] Interpretation Comments T3 UPTAKE (test code = 8657) 35.1 % T4 (THYROXINE) (test code = [...] (test code = 2821) 0.424 UIU/ML CULTURE, [id number] 00:00:00 Test Item Value Reference Range Interpretation Comments CULTURE, URINE (test SPECIMEN NUMBER: code = 10236) [id number] CULTURE, [id number] 00:00:00 Test Item Value Reference Range Interpretation Comments CULTURE, URINE (test SPECIMEN NUMBER: code = 40535) [id number] CULTURE, [id number] 00:00:00 Test Item Value Reference Range Interpretation Comments CULTURE, URINE (test SPECIMEN NUMBER: code = 20121) [id number] CULTURE, [id number] 00:00:00 Test Item Value Reference Range Interpretation Comments CULTURE, URINE (test SPECIMEN NUMBER: code = 51647) [id number] CULTURE, [id number] 00:00:00 Test Item Value Reference Range Interpretation Comments CULTURE, URINE (test SPECIMEN NUMBER: code = 25413) [id number] CULTURE, [id number] 00:00:00 Test Item Value Reference Range Interpretation Comments CULTURE, URINE (test SPECIMEN NUMBER: code = 92132) [id number] CULTURE, [id number] 00:00:00 Test Item Value Reference Range Interpretation Comments CULTURE, URINE (test SPECIMEN NUMBER: code = 15095) [id number] CULTURE, [id number] 00:00:00 Test Item Value Reference Range Interpretation Comments CULTURE, URINE (test SPECIMEN NUMBER: code = 77775) [id number] CULTURE, [id number] 00:00:00 Test Item Value Reference Range Interpretation Comments CULTURE, URINE (test SPECIMEN NUMBER: code = 33260) [id number] CULTURE, [id number] 00:00:00 Test Item Value Reference Range Interpretation Comments CULTURE, URINE (test SPECIMEN NUMBER: code = 38733) [id number] CULTURE, [id number] 00:00:00 Test Item Value Reference Range Interpretation Comments CULTURE, URINE (test SPECIMEN NUMBER: code = 50700) [id number] CULTURE, [id number] 00:00:00 Test Item Value Reference Range Interpretation Comments CULTURE, URINE (test SPECIMEN NUMBER: code = 72117) [id number] CULTURE, [id number] 00:00:00 Test Item Value Reference Range Interpretation Comments CULTURE, URINE (test SPECIMEN NUMBER: code = 01185) [id number] CULTURE, [id number] 00:00:00 Test Item Value Reference Range Interpretation Comments CULTURE, URINE (test SPECIMEN NUMBER: code = 75744) [id number]
[2022-05-18] MEDS ORDERED: ONDANSETRON 4 MG/2 ML VIAL ONE (09:27)
[2022-05-18] MEDS ORDERED: NA CHLORIDE 0.9% 1,000 ML ONE (09:27)
[2022-05-18 10:05] LABS: Hematocrit 34.4 % (36.0-45.0); Lymphocytes % 23.8 % (15.3-44.8); MCV 91.7 fL (80-100); MPV 6.5 fL (7.6-11.3); RBC Red Blood Cell Count 3.75 M/uL (3.86-4.86)
[2022-05-18] MEDS ORDERED: MORPHINE 2 MG/ML SYR ONE (10:10)
[2022-05-18] MEDS ORDERED: PROMETHAZINE INJ 25 MG/ML AMP ONE (10:10)
[2022-05-18 10:16] LABS: Albumin 3.4 g/dL (3.4-5.0); Bilirubin Total 0.3 mg/dL (0.2-1.0); Protein, Total 7.3 g/dL (6.4-8.2)
[2022-05-18 10:28] LABS: Potassium 3.8 mmol/L (3.5-5.1)
[2022-05-18 11:31] VITALS: TEMP 98
[2022-05-18 11:34] VITALS: BP 191/99; O2SAT 100
--- NOTE | 2022-05-30 17:01 | ER ---
Nurse's Notes [facility] Name: Jaimie Amanda Age: 61 yrs Sex: Female : 1960 Arrival Date: 05/18/2022 Time: 08:56 Bed 19 Private MD: Diagnosis: Vomiting Presentation: 05/18 09:00 Chief complaint: Patient states: abd pain and vomiting, reports being seen here aa5 yesterday. 09:00 Onset of symptoms was May 2022. aa5 09:00 Acuity: ZHEN 3 aa5 09:00 Method Of Arrival: Ambulatory aa5 09:00 Coronavirus screen: vomiting. Ebola Screen: Patient denies travel to an Ebola-affected [facility] area in the 21 days before illness onset. Initial Sepsis Screen: Does the patient meet any 2 criteria? No. Patient's initial sepsis screen is negative. Does the patient have a suspected source of infection? No. Patient's initial sepsis screen is negative. Risk Assessment: Do you want to hurt yourself or someone else? Patient reports no desire to harm self or others. Triage Assessment: 10:00 General: Appears in no apparent distress. comfortable, Behavior is calm, cooperative. db Pain: Complains of pain in abdomen. Neuro: No deficits noted. Level of Consciousness is awake, alert, obeys commands, Oriented to person, place, time, situation. Respiratory: No deficits noted. Airway is patent Respiratory effort is even, unlabored, Respiratory pattern is regular, symmetrical. GI: Abdomen is flat. Historical: - Allergies: 09:00 No Known Allergies; aa5 - PMHx: 09:00 Anxiety; Chronic Abdominal Pain; Hypertensive disorder; Hypothyroidism; low NA; NIDDM; aa5 - PSHx: 09:00 Thyroidectomy; aa5 - Immunization history:: Adult Immunizations unknown. - Social history:: Smoking status: Patient reports the use of cigarette tobacco products. Screenin:56 [facility] ED Fall Risk Assessment (Adult) History of falling in the last 3 months, db including since admission No falls in past 3 months (0 pts) Confusion or Disorientation No (0 pts) Intoxicated or Sedated No (0 pts) Impaired Gait No (0 pts) Mobility Assist Device Used No (0 pt) Altered Elimination No (0 pt) Score/Fall Risk Level 0 - 2 = Low Risk Oriented to surroundings, Maintained a safe environment, Educated pt \T\ family on fall prevention, incl call for assistance when getting out of bed. Abuse screen: Denies threats or abuse. Denies injuries from another. Nutritional screening: No deficits noted. Tuberculosis screening: No symptoms or risk factors identified. Assessment: 09:55 Reassessment: Patient appears in no apparent distress at this time. Patient and/or db family updated on plan of care and expected duration. Pain level reassessed. Patient is alert, oriented x 3, equal unlabored respirations, skin warm/dry/pink. complains of nausea and vomiting. was here yesterday. General: Appears in no apparent distress. comfortable, Behavior is calm, cooperative. Pain: Complains of pain in abdomen. Respiratory: Airway is patent Respiratory effort is even, unlabored, Respiratory pattern is regular, symmetrical. GI: Bowel sounds present X 4 quads. Abd is soft and non tender. 10:23 Reassessment: Patient appears in no apparent distress at this time. patient complained db of nausea sharp abdominal pain. notified provider. patient given phenergan and morphine see MAY. 10:30 Reassessment: patient ambulatory to the restroom. db 11:17 Reassessment: Patient appears in no apparent distress at this time. Patient and/or db family updated on plan of care and expected duration. Pain level reassessed. Patient is alert, oriented x 3, equal unlabored respirations, skin warm/dry/pink. patient states feels better. Vital Signs: 09:00 BP 182 / 89; Pulse 78; Resp 16 S; Temp 98(TE); Pulse Ox 98% on R/A; aa5 09:15 BP 160 / 72; Pulse 71; Resp 16; Pulse Ox 96% on R/A; db 10:06 BP 191 / 99; Pulse 72; Resp 16; Pulse Ox 100% on R/A; db ED Course: 08:56 Patient arrived in ED. mr 08:56 René Brown PA is PHCP. jmm 08:56 Jey White MD is Attending Physician. jmm 09:00 Arm band placed on Patient placed in an exam room, on a stretcher. aa5 09:14 Triage completed. aa5 09:15 Stephie Collazo, RN is Primary Nurse. db 09:43 Missed attempt(s): 22 gauge in right hand. bc6 09:44 Missed attempt(s): 22 gauge in left antecubital area. bc6 11:00 Patient has correct armband on for positive identification. Placed in gown. Bed in low db position. Call light in reach. Side rails up X 1. Pulse ox on. NIBP on. Warm blanket given. 11:00 No provider procedures requiring assistance completed. db 11:24 IV discontinued, intact, bleeding controlled, No redness/swelling at site. db Administered Medications: 09:47 Drug: NS 0.9% IV 1000 ml Route: IV; Rate: 1 bolus; Site: left hand; db 11:26 Follow up: Response: No adverse reaction; IV Status: Completed infusion; IV Intake: db 1000ml 09:47 Drug: Ondansetron IVP 4 mg Route: IVP; Site: left hand; db 11:26 Follow up: Response: No adverse reaction db 10:10 Drug: morphine IVP or IV 2 mg Route: IVP; Infused Over: 4 mins; Site: left hand; db 11:26 Follow up: Response: No adverse reaction db 10:10 Drug: Promethazine IVP 12.5 mg Route: IVP; Site: left hand; db 11:26 Follow up: Response: No adverse reaction db 11:12 Not Given (patient states ready for DC): NS 0.9% IV 1000 ml IV at 1 bolus Per protocol; db 1000 mL bolus Medication: 11:25 VIS not applicable for this client. db Intake: 11:26 IV: 1000ml; Total: 1000ml. db Outcome: 11:04 Discharge ordered by . hilton 11:24 Discharged to home ambulatory. db 11:24 Condition: stable 11:24 Discharge instructions given to patient, Instructed on discharge instructions, follow up and referral plans. 11:26 Patient left the ED. db Signatures: René Brown PA PA jmm Radha MessinaBhavna ybarra, RN RN aa5 Stephie Collazo, RN RN Shanel Begum bc6
--- NOTE | 2022-05-30 17:01 | EDPHYS ---
Physician Documentation [facility] Name: Jaimie Amanda Age: 61 yrs Sex: Female : 1960 Arrival Date: 05/18/2022 Time: 08:56 Bed 19 Private MD: ED Physician Jey White HPI: 05/18 09:00 This 61 yrs old Female presents to ER via Ambulatory with complaints of Abdominal Pain, jmm Vomiting. 09:00 The patient presents with abdominal pain. Onset: The symptoms/episode began/occurred jmm gradually. Is a 61-year-old female with history of anxiety, chronic abdominal pain, hypertension the presents emerged part with complaints of ongoing abdominal pain and vomiting. Patient has had similar episodes on numerous occasions. Patient has had numerous ER visits for for pain and vomiting of the same character. Denies fever. Denies diarrhea.. Historical: - Allergies: 09:00 No Known Allergies; aa5 - PMHx: 09:00 Anxiety; Chronic Abdominal Pain; Hypertensive disorder; Hypothyroidism; low NA; NIDDM; aa5 - PSHx: 09:00 Thyroidectomy; aa5 - Immunization history:: Adult Immunizations unknown. - Social history:: Smoking status: Patient reports the use of cigarette tobacco products. ROS: 09:00 Constitutional: Negative for fever, chills, and weight loss, Cardiovascular: Negative jmm for chest pain, palpitations, and edema, Respiratory: Negative for shortness of breath, cough, wheezing, and pleuritic chest pain. 09:00 Abdomen/GI: Positive for abdominal pain, nausea and vomiting. 09:00 All other systems are negative. Exam: 09:00 Constitutional: This is a well developed, well nourished patient who is awake, alert, jmm and in no acute distress. Head/Face: atraumatic. Eyes: EOMI, no conjunctival erythema appreciated ENT: Moist Mucus Membranes Neck: Trachea midline, Supple Chest/axilla: Normal chest wall appearance and motion. Cardiovascular: Regular rate and rhythm. No edema appreciated Respiratory: Normal respirations, no respiratory distress appreciated 09:00 Back: Normal ROM Skin: General appearance color normal MS/ Extremity: Moves all extremities, no obvious deformities appreciated, no edema noted to the lower extremities Neuro: Awake and alert Psych: Behavior is normal, Mood is normal, Patient is cooperative and pleasant 09:00 Abdomen/GI: Inspection: abdomen appears normal, Bowel sounds: normal, Palpation: soft, nontender, in all quadrants. Vital Signs: 09:00 BP 182 / 89; Pulse 78; Resp 16 S; Temp 98(TE); Pulse Ox 98% on R/A; aa5 09:15 BP 160 / 72; Pulse 71; Resp 16; Pulse Ox 96% on R/A; db 10:06 BP 191 / 99; Pulse 72; Resp 16; Pulse Ox 100% on R/A; db MDM: 09:00 Patient medically screened. [facility] 19:25 Differential diagnosis: AAA, bowel obstruction, diverticulitis, gastritis, Irritable [facility] bowel syndrome, Mesenteric ischemia or infarction, non-specific abd pain, Peptic Ulcer Disease. Data reviewed: vital signs, nurses notes. I considered the following discharge prescriptions or medication management in the emergency department Medications were administered in the Emergency Department. See MAR. Test considered but Not performed: CT: Similar episode as previous visits. Care significantly affected by the following chronic conditions: Chronic abdominal pain. Counseling: I had a detailed discussion with the patient and/or guardian regarding: the historical points, exam findings, and any diagnostic results supporting the discharge/admit diagnosis, lab results, the need for outpatient follow up, to return to the emergency department if symptoms worsen or persist or if there are any questions or concerns that arise at home. ED course: Patient states feeling much better. Request to leave the ED.. 03 09:01 Order name: CBC with Diff; Complete Time: 10:20 [facility] 05/18 09:01 Order name: CMP; Complete Time: 10:41 [facility] 05/18 09:01 Order name: Lipase; Complete Time: 10:41 [facility] 05/18 09:01 Order name: IV Saline Lock; Complete Time: 09:53 [facility] 05/18 09:01 Order name: Labs collected and sent; Complete Time: 09:52 [facility] Administered Medications: 09:47 Drug: NS 0.9% IV 1000 ml Route: IV; Rate: 1 bolus; Site: left hand; db 11:26 Follow up: Response: No adverse reaction; IV Status: Completed infusion; IV Intake: db 1000ml 09:47 Drug: Ondansetron IVP 4 mg Route: IVP; Site: left hand; db 11:26 Follow up: Response: No adverse reaction db 10:10 Drug: morphine IVP or IV 2 mg Route: IVP; Infused Over: 4 mins; Site: left hand; db 11:26 Follow up: Response: No adverse reaction db 10:10 Drug: Promethazine IVP 12.5 mg Route: IVP; Site: left hand; db 11:26 Follow up: Response: No adverse reaction db 11:12 Not Given (patient states ready for DC): NS 0.9% IV 1000 ml IV at 1 bolus Per protocol; db 1000 mL bolus Disposition Summary: 05/18/22 11:04 Discharge Ordered Location: Home jm Condition: Stable jm Diagnosis - Vomiting [facility] Followup: jmm - With: Private Physician - When: 2 - 3 days - Reason: Recheck today's complaints, Continuance of care, Re-evaluation by your physician Discharge Instructions: - Discharge Summary Sheet jm - Vomiting, Adult jm Forms: - Medication Reconciliation Form [facility] - Thank You Letter [facility] - Antibiotic Education [facility] - Prescription Opioid Use [facility] Addendum: 05/23/2022 08:01 Co-signature as Attending Physician, Jey White MD I reviewed the patient's care r t provided by the Advanced Practice Provider and agree with the diagnosis and treatment plan. Signatures: Dispatcher [employer] EDMS René Brown PA PA jmm Calderon, Audri, RN RN aa5 Stephie Collazo RN RN db [place], Ryan, MD MD rt
== END 2022-05-18 11:26 | disposition home or self-care (01) ==
LOC: ER 08:53
DX: R11.10 Vomiting, unspecified (principal); R10.9 Unspecified abdominal pain; Z72.0 Tobacco use
CPT/HCPCS: 96361; 85025; 36415; 83690; 80053; 96375; 96374; 99283; J2550; J2270; J2405; J7030

== ENCOUNTER 2022-06-30 07:42 | Inpatient (IN) | payer OTHER ==
--- OUTSIDE RECORDS SUMMARY | 2022-06-30 07:56 | XMS REPORT | Continuity of Care Document ---
:1960 Author Organization [facility] t Address [address] [place] [address] [place] [id number] Care Team Providers Name Role Phone [facility] Primary Care Physician MATT SIMPSON Attending Clinician Unavailable MATT SIMPSON Attending Clinician Unavailable Doctor Unassigned, [place] Attending Clinician Unavailable WALLY KRISHNAMURTHY Attending Clinician Unavailable Natacha Brewster Attending Clinician Payers Payer Name Policy Type Policy Number Effective Date Expiration Date Sarina castelan [facility] [id number] 2017 00:00:00 PLUS Problems This patient has [...] s TRANSDER - ity of MAL 00:00: 00 [facility] ACETAMIN DRUG Active Other-Cmnt Univ ers OPHEN INGREDI 07-27 ity of 00:00: [place] 00 [facility] Hmg-Coa Propensi Inactiv Reductas ty to e 2-28 e adverse 00:00: Inhibito reaction 00 rs to drug Nitrogly Propensi Active 2017-03 cerin ty to 1-08 adverse 00:00: reaction 00 to drug Social History Social Habit Start Date Stop Date Quantity Comments Source History of Smokes tobacco [facility] Alcohol intake 2016-05-01 2016-05-[address] [facility] 00:00:00 00:00:00 non-drinker of Medical nter alcohol (finding) Sex Assigned At [address] [facility] 00:00:00 00:00:00 [facility] Smoking Status Start Date Stop Date Source Smokes tobacco daily 2016-05-01 00:00:00 [facility] Medications Ordered [...] 00 TEMAZEPAM 2021-03 No 30 MG CAPS 1-04 00:00: 00 TAKE 2021-03 No TABLET BY [...] NEEDED FOR NAUSEA AND VOMITING TAKE 1 2-1 No TABLET BY 1-04 MOUTH DAILY 00:00: AT BEDTIME 00 Dose 2-1 No Unknown - 00:00: 00 TAKE 1 2-1 No TABLET [...] TAKE 2 2-0 No 750 TABLETS BY 902 MOUTH THREE 00:00: TIMES DAILY 00 NEEDED [...] 1mg OTC 20 mg 1-08 tablet,mali 00:00: d trazodone 2018-1 No 1mg 100 mg 1-08 [...] [facility]: nightly. [address] OXcarbazepi 2017-0 Yes 600mg Q.[id number] Take [address] [facility] 2-23 [id number] mg by [facility] (TRILEPTAL) 10:23: 3D mouth 3 Med ical 600 MG 59 (three) Center tablet times daily. PARoxetine 2017-0 Yes 40mg QD Take [address] (PAXIL) 40 2-23 by mouth [facility] tablet 10:23: nightly. [address] PARoxetine 2017-0 Yes 40mg QD Take [address] (PAXIL) 40 2-23 by [facility] tablet 10:23: nightly. [address] OXcarbazepi 2017-0 Yes 600mg Q.[id number] Take [address] ne 2-23 [id number] [facility] (TRILEPTAL) 10:23: 3D mouth 3 Med ical 600 MG 59 (three) Center tablet times daily. PARoxetine 2017-0 Yes 40mg QD Take [address] (PAXIL) 40 2-23 by [facility] tablet 10:23: nightly. [address] OXcarbazepi 2017-0 Yes 600mg Q.03592822 Take [address] ne 2-23 [id number] [facility] (TRILEPTAL) 10:23: 3D mouth 3 Med ical 600 MG 59 (three) Center tablet times daily. PARoxetine 2017-0 Yes 40mg QD Take [address] (PAXIL) 40 2-23 by mouth [facility] tablet 10:23: nightly. [address] OXcarbazepi 2017-0 Yes 600mg Q.[id number] Take [address] ne 2-23 [id number] mg by [facility] (TRILEPTAL) 10:23: 3D mouth 3 Med ical 600 MG 59 (three) Center tablet times daily. OXcarbazepi 2017-0 Yes 600mg Q.[id number] Take [address] ne 2-23 [id number] mg by [facility] (TRILEPTAL) 10:23: 3D mouth 3 Med ical 600 MG 59 (three) Center tablet times daily. PARoxetine 2017-0 Yes 40mg QD Take [address] (PAXIL) 40 2-23 by mouth [facility] 10:23: nightly. [address] PARoxetine 2017-0 Yes 40mg QD Take [address] (PAXIL) 40 2-23 by mouth [facility] tablet 10:23: nightly. [address] OXcarbazepi 2017-0 Yes 600mg Q.[id number] Take [address] ne 2-23 [id number] mg [facility] (TRILEPTAL) 10:23: 3D mouth 3 Med ical 600 MG 59 (three) Center tablet times daily. OXcarbazepi 2017-0 Yes 600mg Q.43992001 Take [address] ne 2-23 [id number] mg by [facility] (TRILEPTAL) 10:23: 3D mouth 3 Med ical 600 MG 59 (three) Center tablet times daily. PARoxetine 2017-0 Yes 40mg QD Take [address] (PAXIL) 40 2-23 by mouth [facility] tablet 10:23: nightly. [address] OXcarbazepi 2017-0 Yes 600mg Q.[id number] Take [address] ne 2-23 [id number] [facility] (TRILEPTAL) 10:23: 3D mouth 3 Med ical 600 MG 59 (three) Center tablet times daily. PARoxetine 2017-0 Yes 40mg QD Take [address] (PAXIL) 40 2-23 by mouth [facility] tablet 10:23: nightly. [address] PARoxetine 2017-0 Yes 40mg QD Take [address] (PAXIL) 40 2-23 by mouth [facility] tablet 10:23: nightly. [address] PARoxetine 2017-0 Yes 40mg QD Take [address] (PAXIL) 40 2-23 by mouth [facility] tablet 10:23: nightly. [address] OXcarbazepi 2017-0 Yes 600mg Q.19802763 Take [address] ne 2-23 [id number] mg by [facility] (TRILEPTAL) 10:23: 3D mouth 3 Med ical 600 MG 59 (three) Center tablet times daily. OXcarbazepi 2017-0 Yes 600mg Q.13283401 Take [address] ne 2-23 [id number] [facility] by [facility] (TRILEPTAL) 10:23: 3D mouth 3 Med ical 600 MG 59 (three) Center tablet times daily. PARoxetine 2017-0 Yes 40mg QD Take [address] (PAXIL) 40 2-23 by mouth [facility] tablet 10:23: nightly. [address] OXcarbazepi 2017-0 Yes 600mg Q.[id number] Take [address] ne 2-23 [id number] mg by [facility] (TRILEPTAL) 10:23: 3D mouth 3 Med ical 600 MG 59 (three) Center tablet times daily. PARoxetine 2017-0 Yes 40mg QD Take [address] (PAXIL) 40 2-23 by mouth [facility] tablet 10:23: nightly. [address] OXcarbazepi 2017-0 Yes 600mg Q.[id number] Take [address] ne 2-23 [id number] mg by [facility] (TRILEPTAL) 10:23: 3D mouth 3 Med ical 600 MG 59 (three) Center tablet times daily. PARoxetine 2017-0 Yes 40mg QD Take [address] (PAXIL) 40 2-23 by mouth [facility] tablet 10:23: nightly. [address] PARoxetine 2017-0 Yes 40mg QD Take [address] (PAXIL) 40 2-23 by mouth [facility] tablet 10:23: nightly. [address] OXcarbazepi 2017-0 Yes 600mg Q.49716040 Take [address] ne 2-23 [id number] mg by [facility] (TRILEPTAL) 10:23: 3D mouth 3 Med ical 600 MG 59 (three) Center tablet times daily. PARoxetine 2017-0 Yes 40mg QD Take [address] (PAXIL) 40 2-23 by mouth [facility] tablet 10:23: nightly. [address] OXcarbazepi 2017-0 Yes 600mg Q.[id number] Take [address] ne 2-23 [id number] mg by [facility] (TRILEPTAL) 10:23: 3D mouth 3 Med ical 600 MG 59 (three) Center tablet times daily. OXcarbazepi 2017-0 Yes 600mg Q.[id number] Take [address] ne 2-23 [id number] mg by [facility] (TRILEPTAL) 10:23: 3D mouth 3 Med ical 600 MG 59 (three) Center tablet times daily. PARoxetine 2017-0 Yes 40mg QD Take [address] (PAXIL) 40 2-23 by mouth [facility] tablet 10:23: nightly. [address] PARoxetine 2017-0 Yes 40mg QD Take [address] (PAXIL) 40 2-23 by mouth [facility] tablet 10:23: nightly. [address] OXcarbazepi 2017-0 Yes 600mg Q.[id number] Take [address] ne 2-23 [id number] mg by [facility] (TRILEPTAL) 10:23: 3D mouth 3 Med ical 600 MG 59 (three) Center tablet times daily. PARoxetine 2017-0 Yes 40mg QD Take [address] (PAXIL) 40 2-23 by mouth [facility] tablet 10:23: nightly. [address] OXcarbazepi 2017-0 Yes 600mg Q.[id number] Take [address] ne 2-23 [id number] mg by [facility] (TRILEPTAL) 10:23: 3D mouth 3 Med ical 600 MG 59 (three) Center tablet times daily. OXcarbazepi 2017-0 Yes 600mg Q.[id number] Take [address] ne 2-23 [id number] mg by [facility] (TRILEPTAL) 10:23: 3D mouth 3 Med ical 600 MG 59 (three) Center tablet times daily. PARoxetine 2017-0 Yes 40mg QD Take [address] (PAXIL) 40 2-23 by mouth [facility] tablet 10:23: nightly. [address] OXcarbazepi 2017-0 Yes 600mg Q.02846647 Take [address] ne 2-23 [id number] mg by [facility] (TRILEPTAL) 10:23: 3D mouth 3 Med ical 600 MG 59 (three) Center tablet times daily. PARoxetine 2017-0 Yes 40mg QD Take [address] (PAXIL) 40 2-23 by mouth [facility] tablet 10:23: nightly. [address] PARoxetine 2017-0 Yes 40mg QD Take [address] (PAXIL) 40 2-23 by mouth [facility] tablet 10:23: nightly. [address] OXcarbazepi 2017-0 Yes 600mg Q.76111186 Take [address] ne 2-23 [id number] mg by [facility] (TRILEPTAL) 10:23: 3D mouth 3 Med ical 600 MG 59 (three) Center tablet times daily. OXcarbazepi 2017-0 Yes 600mg Q.[id number] Take [address] ne 2-23 [id number] mg by [facility] (TRILEPTAL) 10:23: 3D mouth 3 Med ical 600 MG 59 (three) Center tablet times daily. PARoxetine 2017-0 Yes 40mg QD Take [address] (PAXIL) 40 2-23 by mouth [facility] tablet 10:23: nightly. [facility] anjelica [address] OXcarbazepi 2017-0 Yes 600mg Q.[id number] Take [address] ne 2-23 [id number] mg by [facility] (TRILEPTAL) 10:23: 3D mouth 3 Med ical 600 MG 59 (three) Center tablet times daily. PARoxetine 2017-0 Yes 40mg QD Take [address] (PAXIL) 40 2-23 by mouth [facility] tablet 10:23: nightly. [facility] anjelica [address] OXcarbazepi 2017-0 Yes 600mg Q.[id number] Take [address] ne 2-23 [id number] mg by [facility] (TRILEPTAL) 10:23: 3D mouth 3 Med ical 600 MG 59 (three) Center tablet times daily. PARoxetine 2017-0 Yes 40mg QD Take [address] (PAXIL) 40 2-23 by mouth [facility] tablet 10:23: nightly. [facility] anjelica [address] OXcarbazepi 2017-0 Yes 600mg Q.99547031 Take [address] ne 2-23 [id number] mg by [facility] (TRILEPTAL) 10:23: 3D mouth 3 Med ical 600 MG 59 (three) Center tablet times daily. PARoxetine 2017-0 Yes 40mg QD Take [address] (PAXIL) 40 2-23 by mouth [facility] tablet 10:23: nightly. [facility] anjelica [address] OXcarbazepi 2017-0 Yes 600mg Q.[id number] Take [address] ne 2-23 [id number] mg by [facility] (TRILEPTAL) 10:23: 3D mouth 3 Med ical 600 MG 59 (three) Center tablet times daily. PARoxetine 2017-0 Yes 40mg QD Take [address] (PAXIL) 40 2-23 by mouth [facility] tablet 10:23: nightly. [address] 2017-0 Yes 600mg Q.73623336 Take [address] ne 2-23 [id number] mg by [facility] (TRILEPTAL) 10:23: 3D mouth 3 Med ical 600 MG 59 (three) Center tablet times daily. PARoxetine 2017-0 Yes 40mg QD Take [address] (PAXIL) 40 2-23 by mouth [facility] tablet 10:23: nightly. [address] 2017-0 Yes 600mg Q.99572985 Take [address] ne 2-23 [id number] mg by [facility] (TRILEPTAL) 10:23: 3D mouth 3 Med ical 600 MG 59 (three) Center tablet times daily. PARoxetine 2017-0 Yes 40mg QD Take [address] (PAXIL) 40 2-23 by mouth [facility] tablet 10:23: nightly. [address] 2017-0 Yes 600mg Q.02460336 Take [address] ne 2-23 [id number] mg by [facility] (TRILEPTAL) 10:23: 3D mouth 3 Med ical 600 MG 59 (three) Center tablet times daily. PARoxetine 2017-0 Yes 40mg QD Take [address] (PAXIL) 40 2-23 by mouth [facility] tablet 10:23: nightly. [address] 2017-0 Yes 600mg Q.[id number] Take [address] ne 2-23 [id number] mg by [facility] (TRILEPTAL) 10:23: 3D mouth 3 Med ical 600 MG 59 (three) Center tablet times daily. PARoxetine 2017-0 Yes 40mg QD Take [address] (PAXIL) 40 2-23 by mouth [facility] tablet 10:23: nightly. [address] 2017-0 Yes 600mg Q.80246194 Take [address] ne 2-23 [id number] mg by [facility] (TRILEPTAL) 10:23: 3D mouth 3 Med ical 600 MG 59 (three) Center tablet times daily. PARoxetine 2017-0 Yes 40mg QD Take [address] (PAXIL) 40 2-23 by mouth [facility] tablet 10:23: nightly. [facility] anjelica [facility] OXcarbazepi 2016- Yes 600mg Q.09680941 Take [address] ne - [id number] mg by [facility] (TRILEPTAL) 10:23: 3D mouth 3 Med ical 600 MG 59 (three) Center tablet times daily. OXcarbazepi Yes 600mg Q.94768039 Take [address] ne 05-01 [id number] mg by [facility] (TRILEPTAL) 10:23: 3D mouth 3 Med ical 600 MG 59 (three) Center tablet times daily. LORazepam Yes 1mg Take [address] (ATIVAN) 1 2-23 tablet (1 [facility] tablet 00:00: mg total) Med ical 00 by mouth 3 Center (three) times daily as needed for Anxiety for up to 5 doses. Max Daily Amount: 3 mg LORazepam Yes 1mg Take [address] [facility] [...] doses. Max Daily Amount: 3 mg LORazepam Yes 1mg Take [address] [facility] [...] Goal Plan of Care Note [code = 63713-7] Goal Plan of Care Note [code = 26169-8] Goal Plan of Care Note [code = 52850-6] Goal Plan of Care Note [code = 91425-6] Goal Plan of Care Note [code = 26442-7] Goal Plan of Care Note [code = 81050-9] Goal Plan of Care Note [code = 25944-0] Goal Plan of Care Note [code = 09724-0] Goal Plan of Care Note [code = 58340-6] Goal Plan of Care Note [code = 33352-8] Goal Plan of Care Note [code = 05637-3] Goal Plan of Care Note [code = 02768-9] Goal Plan of Care Note [code = 93155-7] Goal Plan of Care Note [code = 51407-2] Goal Plan of Care Note [code = 99824-7] Goal Plan of Care Note [code = 00158-8] Goal Plan of Care Note [code = 04017-5] Goal Plan of Care Note [code = 97627-7] Goal Plan of Care Note [code = 60102-9] Goal Plan of Care Note [code = 13126-4] Goal Plan of Care Note [code = 52465-5] Goal Plan of Care Note [code = 97289-9] Goal Plan of Care Note [code = 39275-3] Goal Plan of Care Note [code = 27362-6] Goal Plan of Care Note [code = 94947-0] Goal Plan of Care Note [code = 98200-8] Goal Plan of Care Note [code = 04631-5] Goal Plan of Care Note [code = 57469-3] Goal Plan of Care Note [code = 16347-2] Goal Plan of Care Note [code = 97378-8] Goal Plan of Care Note [code = 64369-2] Goal Plan of Care Note [code = 66257-7] Goal Plan of Care Note [code = 16289-8] Goal Plan of Care Note [code = 57826-3] Goal Plan of Care Note [code = 15210-0] Goal Plan of Care Note [code = 41873-5] Goal Plan of Care Note [code = 07160-4] Goal Plan of Care Note [code = 09561-0] Goal Plan of Care Note [code = 29062-3] Goal Plan of Care Note [code = 56745-7] Goal Plan of Care Note [code = 97981-0] Goal Plan of Care Note [code = 75429-7] Goal Plan of Care Note [code = 01151-1] Goal Plan of Care Note [code = 84906-3] Goal Plan of Care Note [code = 00879-8] Goal Plan of Care Note [code = 11584-1] Goal Plan of Care Note [code = 58403-1] Goal Plan of Care Note [code = 00826-5] Goal Plan of Care Note [code = 96787-8] Goal Plan of Care Note [code = 49617-5] Goal Plan of Care Note [code = 31564-5] Goal Plan of Care Note [code = 65808-8] Goal Plan of Care Note [code = 28815-3] Goal Plan of Care Note [code = 84566-2] Goal Plan of Care Note [code = 84770-1] Goal Plan of Care Note [code = 37881-4] Goal Plan of Care Note [code = 98500-4] Goal Plan of Care Note [code = 45073-0] Goal Plan of Care Note [code = 86756-3] Goal Plan of Care Note [code = 98156-6] Goal Plan of Care Note [code = 61067-3] Goal Plan of Care Note [code = 90279-6] Goal Plan of Care Note [code = 78154-6] Goal Plan of Care Note [code = 57679-2] Goal Plan of Care Note [code = 36466-7] Goal Plan of Care Note [code = 90140-8] Goal Plan of Care Note [code = 06781-9] Goal Plan of Care Note [code = 02618-4] Goal Plan of Care Note [code = 67580-0] Goal Plan of Care Note [code = 61274-4] Goal Plan of Care Note [code = 73495-8] Goal Plan of Care Note [code = 88633-7] Goal Plan of Care Note [code = 53375-2] Goal Plan of Care Note [code = 19881-9] Goal Plan of Care Note [code = 02018-1] Goal Plan of Care Note [code = 44663-2] Goal Plan of Care Note [code = 61748-2] Goal Plan of Care Note [code = 57234-7] Goal Plan of Care Note [code = 53245-3] Goal Plan of Care Note [code = 05847-9] Goal Plan of Care Note [code = 72519-2] Goal Plan of Care Note [code = 58002-6] Goal Plan of Care Note [code = 09219-7] Goal Plan of Care Note [code = 27197-4] Goal Plan of Care Note [code = 12636-9] Goal Plan of Care Note [code = 57971-1] Goal Plan of Care Note [code = 03002-3] Goal Plan of Care Note [code = 05408-0] Goal Plan of Care Note [code = 57328-1] Goal Plan of Care Note [code = 37450-5] Goal Plan of Care Note [code = 70186-1] Goal Plan of Care Note [code = 45268-4] Goal Plan of Care Note [code = 88713-0] Goal Plan of Care Note [code = 46300-1] Goal Plan of Care Note [code = 16309-3] Goal Plan of Care Note [code = 94685-5] Goal Plan of Care Note [code = 37126-0] Goal Plan of Care Note [code = 43600-1] Goal Plan of Care Note [code = 61274-6] Goal Plan of Care Note [code = 34859-7] Goal Plan of Care Note [code = 84416-6] Goal Plan of Care Note [code = 49234-2] Goal Plan of Care Note [code = 72506-5] Goal Plan of Care Note [code = 69740-6] Goal Plan of Care Note [code = 05579-8] Goal Plan of Care Note [code = 42541-5] Goal Plan of Care Note [code = 20680-5] Goal Plan of Care Note [code = 16614-6] Goal Plan of Care Note [code = 76390-3] Goal Plan of Care Note [code = 65219-5] Goal Plan of Care Note [code = 07366-8] Goal Plan of Care Note [code = 66158-0] Goal Plan of Care Note [code = 60612-9] Goal Plan of Care Note [code = 94580-0] Goal Plan of Care Note [code = 48600-0] Goal Plan of Care Note [code = 05175-5] Goal Plan of Care Note [code = 09593-4] Goal Plan of Care Note [code = 80557-5] Goal Plan of Care Note [code = 31682-8] Goal Plan of Care Note [code = 90289-2] Goal Plan of Care Note [code = 31278-0] Goal Plan of Care Note [code = 88374-0] Goal Plan of Care Note [code = 62045-9] Goal Plan of Care Note [code = 19263-9] Goal Plan of Care Note [code = 47638-3] Goal Plan of Care Note [code = 62564-7] Goal Plan of Care Note [code = 67999-2] Goal Plan of Care Note [code = 52295-0] Goal Plan of Care Note [code = 10497-2] Goal Plan of Care Note [code = 18646-3] Goal Plan of Care Note [code = 21699-7] Goal Plan of Care Note [code = 04551-1] Goal Plan of Care Note [code = 23025-1] Goal Plan of Care Note [code = 70013-9] Goal Plan of Care Note [code = 34492-6] Goal Plan of Care Note [code = 62323-9] Goal Plan of Care Note [code = 58947-2] Goal Plan of Care Note [code = 80296-4] Goal Plan of Care Note [code = 50616-2] Goal Plan of Care Note [code = 50910-3] Goal Plan of Care Note [code = 02012-4] Goal Plan of Care Note [code = 21851-8] Goal Plan of Care Note [code = 22362-3] Goal Plan of Care Note [code = 96711-0] Goal Plan of Care Note [code = 55177-2] Goal Plan of Care Note [code = 20464-4] Goal Plan of Care Note [code = 94029-4] Goal Plan of Care Note [code = 88769-6] Goal Plan of Care Note [code = 14979-5] Goal Plan of Care Note [code = 05390-0] Goal Plan of Care Note [code = 37251-1] Goal Plan of Care Note [code = 08558-3] Goal Plan of Care Note [code = 47183-8] Goal Plan of Care Note [code = 54826-6] Goal Plan of Care Note [code = 49060-2] Goal Plan of Care Note [code = 74344-8] Goal Plan of Care Note [code = 70966-5] Goal Plan of Care Note [code = 58957-2] Goal Plan of Care Note [code = 74639-1] Goal Plan of Care Note [code = 23142-0] Goal Plan of Care Note [code = 03388-4] Goal Plan of Care Note [code = 43064-3] Goal Plan of Care Note [code = 72233-6] Goal Plan of Care Note [code = 46482-4] Goal Plan of Care Note [code = 67816-4] Goal Plan of Care Note [code = 87993-3] Goal Plan of Care Note [code = 62089-8] Goal Plan of Care Note [code = 91021-0] Goal Plan of Care Note [code = 33448-5] Goal Plan of Care Note [code = 86123-1] Goal Plan of Care Note [code = 99325-1] Goal Plan of Care Note [code = 01165-2] Goal Plan of Care Note [code = 91214-5] Goal Plan of Care Note [code = 44576-5] Goal Plan of Care Note [code = 78947-6] Goal Plan of Care Note [code = 92218-3] Goal Plan of Care Note [code = 50489-2] Goal Plan of Care Note [code = 98896-0] Goal Plan of Care Note [code = 43582-5] Goal Plan of Care Note [code = 76729-1] Goal Plan of Care Note [code = 75219-4] Goal Plan of Care Note [code = 01380-3] Goal Plan of Care Note [code = 05708-8] Goal Plan of Care Note [code = 38760-5] Goal Plan of Care Note [code = 07574-6] Goal Plan of Care Note [code = 51031-8] Goal Plan of Care Note [code = 78638-9] Goal Plan of Care Note [code = 30594-5] Goal Plan of Care Note [code = 07946-0] Goal Plan of Care Note [code = 11002-1] Goal Plan of Care Note [code = 04820-8] Goal Plan of Care Note [code = 35547-7] Goal Plan of Care Note [code = 75170-6] Goal Plan of Care Note [code = 05435-8] Goal Plan of Care Note [code = 43894-2] Goal Plan of Care Note [code = 11350-2] Goal Plan of Care Note [code = 88451-6] Goal Plan of Care Note [code = 36763-6] Goal Plan of Care Note [code = 51195-1] Goal Plan of Care Note [code = 28073-6] Goal Plan of Care Note [code = 25385-5] Goal Plan of Care Note [code = 95514-2] Goal Plan of Care Note [code = 77420-6] Goal Plan of Care Note [code = 32824-9] Goal Plan of Care Note [code = 73637-4] Goal Plan of Care Note [code = 92014-4] Goal Plan of Care Note [code = 35664-3] Goal Plan of Care Note [code = 04999-6] Encounters Start End Encounter Admission Attending Care Care Encounter Source Date/Time Date/Time Type Type Clinicians Facility Department ID 2021-06-01 Outpatient [facility] [id number] [place] 01:36:29 [id number] [facility] 2022-05-24 2022-05-24 Outpatient SFA SFA [id number] Cristian 10:36:59 10:36:59 0318 F Jerman 2022-02-11 2022-02-11 Outpatient SFA SFA [id number] Cristian 09:04:48 09:04:48 1206 F Jerman 2022-02-10 2022-02-10 Outpatient SFA SFA [id number] Cristian 09:29:34 09:29:34 1205 F Jerman 2022-02-10 2022-02-10 Outpatient [id number] 00:00:00 00:00:00 Visit 4089-4cab 089-4cab-9 -8op1-u2u bf5-y8w481 [id number] 2022-01-10 2022-01-10 Outpatient SFA SFA [id number] 022 Cristian 09:16:14 09:16:14 1104 F Jerman 2022-01-10 2022-01-10 Outpatient [id number] accaa6-a 00:00:00 00:00:00 Visit aca9-4c83 ca9-4c83-a -a6ad-cc6 7eb-bc13f3 2z5u825m2 [id number] 2021-12-19 2021-12-19 Outpatient SFA SFA [id number] Cristian 16:11:31 16:11:31 1013 F Jerman 2021-12-19 2021-12-19 Outpatient [id number] 00:00:00 00:00:00 Visit h424-780l 770-441f-a -adae-62b amelia-62bace [id number] fd81af 2021-09-17 2021-09-17 Outpatient [id number]- [id number] b0utsc-4 00:00:00 00:00:00 Visit 935a-4f50 35a-4f50-b -v88e-t3t 77d-c2ba85 [id number] 2020-08-03 2020-08-03 Outpatient MATT VÁSQUEZ [facility] [id number] [facility] 10:00:00 10:00:00 MATT SIMPSON [facility] 2020-07-25 2020-07-25 Orders Doctor FISH [id number] 00:00:00 00:00:00 Only Unassigned, BK 350.1.13.10 [facility] [id number] [id number] 2019-09-26 2019-09-26 Outpatient Bertin KRISHNAMURTHY [facility] [id number] [facility] 16:00:00 16:00:00 WALLY pat [facility] 2018-10-21 2018-10-21 Telephone Gramm, [facility] [id number] 00:00:00 00:00:00 Natacha Nguyen 350.1.13.10 [place] 4.2.7.2.686 [place] [id number] nal 204 Building Results Test Description Test Time Test Comments Results Result Comments Source TSH, THIRD GENERATION 2022-05-26 02:57:49 Test Item Value Reference Range Interpretation Comme nts TSH, THIRD GENERATION (test code = 2821) 6.350 UIU/ML 0.400-4.100 H LIPID [id number] 01:09:34 Test Item Value Reference Range Interpretation Comments CHOLESTEROL (test 268 MG/DL <200 H code = 2210) TRIGLYCERIDES (test 100 MG/DL <150 code = 2232) HDL CHOLESTEROL (test 66 MG/DL >39 code = 2220) CALC LDL CHOL (test 180 MG/DL <100 H NOTE: C ALCULATED LDL code = 2237) IS BASED ON MELBA-OLVERA METHOD WHICHINCLUDES ADJUSTABLE TRIGLYCERIDE:VL DL CHOLESTEROL RAT IO.THIS FACTOR VARIES B Y MEASURED TRIGLY CERIDE AND NON-HDLCHOL ESTEROL CONCENTRATIONS WITH INCREASED CALCU LATED LDL SEENIN HIGH ER TRIGLYCERIDE OR LOWER NON-HDL SPECIME NS. FOR MOREINFORMATION , SEE CLIENT ANNOUNCE MENT AT [email or web address] [email or web address] RATIO LDL/HDL 2.73 RATIO <3.22 [facility] has (test code = 2238) important pathology staff changes effective 05/07. New patholo gy staff will prov saida uninterrupted, excellent patie nt care and clinical consultation. S ee URL: [email or web address] UNLES S OTHERWISE INDIC ATED, ALL TESTING PER FORMED AT [facility] [employer], [facility]. [address] [place] [id number] ISIDRA SUH DIRECTOR: Andrew WHITLEY CONNOR NUMBER [id number] CAP ACCREDITATION N O. [id number] HEMOGLOBIN [id number] 03:17:24 Test Item Value Reference Range Interpretation Comments HEMOGLOBIN A1c (test 6.4 % 4.2-5.6 H [employer] code = 93301) ASSOCIATION [facility] A1C: PREDIABETES/INC REASED RISK . [...] ALTERN ATE TESTING OR LABORATORY C ONSULTATION. TSH, THIRD [id number] 05:15:49 Test Item Value Reference Range Interpretation Comments TSH, THIRD GENERATION (test code 2.080 UIU/ML 0.400-4.100 = 2821) HEMOGLOBIN [id number] 03:46:00 Test Item Value Reference Range Interpretation Comments HEMOGLOBIN A1c (test 6.6 % 4.2-5.6 H AMERIC AN DIABETES code = 63571) ASSOCIATION [employer] FOR HGB A1C: PREDIABETES/INC REASED [...] UNLESS OTHERWIS E INDICATED, ALL TESTING PER [facility] F[facility]OL[facility], [facility]. [address] [place] [address] 44 LABORATORY DIRE CTOR: DIANA RUSS M.D. CLIA NUMBER [id number] [place]. [id number] LIPID [id number] 02:59:52 Test Item Value Reference Range Interpretation [...] MOREINFORMATION , SEE CLIENT ANNOUNCE MENT AT [email or web address] RISK RATIO LDL/HDL 4.02 RATIO <3.22 H (test code = 2238) [id number] 00:00:00 Test Item Value Reference Range Interpretation Comments TSH, THIRD GENERATION (test code 2.080 UIU/ML = 2821) [id number] 00:00:00 Test Item Value Reference Range Interpretation Comments TSH, THIRD GENERATION (test code 2.080 UIU/ML = 2821) [id number] 00:00:00 Test Item Value Reference Range Interpretation Comments TSH, THIRD GENERATION (test code 2.080 UIU/ML = 2821) LIPID [id number] 00:00:00 Test Item Value Reference Range Interpretation Comments CHOLESTEROL (test code = 2210) 292 MG/DL TRIGLYCERIDES (test code = 2232) 184 MG/DL HDL CHOLESTEROL (test code = 2220) 51 MG/DL CALC LDL CHOL (test code = 2237) 205 MG/DL RISK RATIO LDL/HDL (test code = 4.02 RATIO 2238) LIPID [id number] 00:00:00 Test Item Value Reference Range Interpretation Comments CHOLESTEROL (test code = 2210) 292 MG/DL TRIGLYCERIDES (test code = 2232) 184 MG/DL HDL CHOLESTEROL (test code = 2220) 51 MG/DL CALC LDL CHOL (test code = 2237) 205 MG/DL RISK RATIO LDL/HDL (test code = 4.02 RATIO 2238) HEMOGLOBIN [id number] 00:00:00 Test Item Value Reference Range Interpretation Comments HEMOGLOBIN A1c (test code = 06581) 6.6 % HEMOGLOBIN [id number] 00:00:00 Test Item Value Reference Range Interpretation Comments HEMOGLOBIN A1c (test code = 09090) 6.6 % HEMOGLOBIN [id number] 00:00:00 Test Item Value Reference Range Interpretation Comments HEMOGLOBIN A1c (test code = 67886) 6.6 % [id number] 00:00:00 Test Item Value Reference Range Interpretation Comments TSH, THIRD GENERATION (test code 2.080 UIU/ML = 2821) [id number] 00:00:00 Test Item Value Reference Range Interpretation Comments TSH, THIRD GENERATION (test code 2.080 UIU/ML = 2821) [id number] 00:00:00 Test Item Value Reference Range Interpretation Comments TSH, THIRD GENERATION (test code 2.080 UIU/ML = 2821) LIPID [id number] 00:00:00 Test Item Value Reference Range Interpretation Comments CHOLESTEROL (test code = 2210) 292 MG/DL TRIGLYCERIDES (test code = 2232) 184 MG/DL HDL CHOLESTEROL (test code = 2220) 51 MG/DL CALC LDL CHOL (test code = 2237) 205 MG/DL RISK RATIO LDL/HDL (test code = 4.02 RATIO 2238) LIPID [id number] 00:00:00 Test Item Value Reference Range Interpretation Comments CHOLESTEROL (test code = 2210) 292 MG/DL TRIGLYCERIDES (test code = 2232) 184 MG/DL HDL CHOLESTEROL (test code = 2220) 51 MG/DL CALC LDL CHOL (test code = 2237) 205 MG/DL RISK RATIO LDL/HDL (test code = 4.02 RATIO 2238) HEMOGLOBIN [id number] 00:00:00 Test Item Value Reference Range Interpretation Comments HEMOGLOBIN A1c (test code = 78204) 6.6 % HEMOGLOBIN [id number] 00:00:00 Test Item Value Reference Range Interpretation Comments HEMOGLOBIN A1c (test code = 69577) 6.6 % HEMOGLOBIN [id number] 00:00:00 Test Item Value Reference Range Interpretation Comments HEMOGLOBIN A1c (test code = 57096) 6.6 % [id number] 00:00:00 Test Item Value Reference Range Interpretation Comments TSH, THIRD GENERATION (test code 2.080 UIU/ML = 2821) [id number] 00:00:00 Test Item Value Reference Range Interpretation Comments TSH, THIRD GENERATION (test code 2.080 UIU/ML = 2821) LIPID [id number] 00:00:00 Test Item Value Reference Range Interpretation Comments CHOLESTEROL (test code = 2210) 292 MG/DL TRIGLYCERIDES (test code = 2232) 184 MG/DL HDL CHOLESTEROL (test code = 2220) 51 MG/DL CALC LDL CHOL (test code = 2237) 205 MG/DL RISK RATIO LDL/HDL (test code = 4.02 RATIO 2238) HEMOGLOBIN [id number] 00:00:00 Test Item Value Reference Range Interpretation Comments HEMOGLOBIN A1c (test code = 17675) 6.6 % HEMOGLOBIN [id number] 00:00:00 Test Item Value Reference Range Interpretation Comments HEMOGLOBIN A1c (test code = 95330) 6.6 % [id number] 00:00:00 Test Item Value Reference Range Interpretation Comments TSH, THIRD GENERATION (test code 2.080 UIU/ML = 2821) [id number] 00:00:00 Test Item Value Reference Range Interpretation Comments TSH, THIRD GENERATION (test code 2.080 UIU/ML = 2821) [id number] 00:00:00 Test Item Value Reference Range Interpretation Comments TSH, THIRD GENERATION (test code 2.080 UIU/ML = 2821) LIPID [id number] 00:00:00 Test Item Value Reference Range Interpretation Comments CHOLESTEROL (test code = 2210) 292 MG/DL TRIGLYCERIDES (test code = 2232) 184 MG/DL HDL CHOLESTEROL (test code = 2220) 51 MG/DL CALC LDL CHOL (test code = 2237) 205 MG/DL RISK RATIO LDL/HDL (test code = 4.02 RATIO 2238) LIPID [id number] 00:00:00 Test Item Value Reference Range Interpretation Comments CHOLESTEROL (test code = 2210) 292 MG/DL TRIGLYCERIDES (test code = 2232) 184 MG/DL HDL CHOLESTEROL (test code = 2220) 51 MG/DL CALC LDL CHOL (test code = 2237) 205 MG/DL RISK RATIO LDL/HDL (test code = 4.02 RATIO 2238) HEMOGLOBIN [id number] 00:00:00 Test Item Value Reference Range Interpretation Comments HEMOGLOBIN A1c (test code = 97302) 6.6 % HEMOGLOBIN [id number] 00:00:00 Test Item Value Reference Range Interpretation Comments HEMOGLOBIN A1c (test code = 77589) 6.6 % HEMOGLOBIN [id number] 00:00:00 Test Item Value Reference Range Interpretation Comments HEMOGLOBIN A1c (test code = 99243) 6.6 % HEMOGLOBIN [id number] 00:00:00 Test Item Value Reference Range Interpretation Comments HEMOGLOBIN A1c (test code = 00219) 6.8 % HEMOGLOBIN [id number] 00:00:00 Test Item Value Reference Range Interpretation Comments HEMOGLOBIN A1c (test code = 40270) 6.8 % HEMOGLOBIN [id number] 00:00:00 Test Item Value Reference Range Interpretation Comments HEMOGLOBIN A1c (test code = 31173) 6.8 % LIPID [id number] 00:00:00 Test Item Value Reference Range Interpretation Comments CHOLESTEROL (test code = 2210) 303 MG/DL TRIGLYCERIDES (test code = 2232) 191 MG/DL HDL CHOLESTEROL (test code = 2220) 61 MG/DL CALC LDL CHOL (test code = 2237) 205 MG/DL RISK RATIO LDL/HDL (test code = 3.36 RATIO 2238) LIPID [id number] 00:00:00 Test Item Value Reference Range Interpretation Comments CHOLESTEROL (test code = 2210) 303 MG/DL TRIGLYCERIDES (test code = 2232) 191 MG/DL HDL CHOLESTEROL (test code = 2220) 61 MG/DL CALC LDL CHOL (test code = 2237) 205 MG/DL RISK RATIO LDL/HDL (test code = 3.36 RATIO 2238) [id number] 00:00:00 Test Item Value Reference Range Interpretation Comments TSH, THIRD GENERATION (test code 0.769 UIU/ML = 2821) [id number] 00:00:00 Test Item Value Reference Range Interpretation Comments TSH, THIRD GENERATION (test code 0.769 UIU/ML = 2821) [id number] 00:00:00 Test Item Value Reference Range Interpretation Comments TSH, THIRD GENERATION (test code 0.769 UIU/ML = 2821) COMPREHENSIVE METABOLIC [id number] 00:00:00 Test Item Value Reference Range Interpretation Comments GLUCOSE (test code = 2217) 131 MG/DL BUN (test code = 2208) 13 MG/DL CREATININE (test code = 2214) 0.65 MG/DL eGFR AMER. (test code 113 ML/MIN/1.73 = 41221) eGFR NON- AMER. (test 97 ML/MIN/1.73 code = 17620) CALC BUN/CREAT (test code = 20 RATIO [...] code = 2219) 23 U/L COMPREHENSIVE METABOLIC [id number] 00:00:00 Test Item Value Reference Range Interpretation Comments GLUCOSE (test code = 2217) 131 MG/DL BUN (test code = 2208) 13 MG/DL CREATININE (test code = 2214) 0.65 MG/DL eGFR AMER. (test code 113 ML/MIN/1.73 = 66536) eGFR NON- AMER. (test 97 ML/MIN/1.73 code = 01407) CALC BUN/CREAT (test code = 20 RATIO [...] (test code = 2219) 23 U/L HEMOGLOBIN [id number] 00:00:00 Test Item Value Reference Range Interpretation Comments HEMOGLOBIN A1c (test code = 45754) 6.8 % HEMOGLOBIN [id number] 00:00:00 Test Item Value Reference Range Interpretation Comments HEMOGLOBIN A1c (test code = 56486) 6.8 % HEMOGLOBIN [id number] 00:00:00 Test Item Value Reference Range Interpretation Comments HEMOGLOBIN A1c (test code = 28317) 6.8 % LIPID [id number] 00:00:00 Test Item Value Reference Range Interpretation Comments CHOLESTEROL (test code = 2210) 303 MG/DL TRIGLYCERIDES (test code = 2232) 191 MG/DL HDL CHOLESTEROL (test code = 2220) 61 MG/DL CALC LDL CHOL (test code = 2237) 205 MG/DL RISK RATIO LDL/HDL (test code = 3.36 RATIO 2238) LIPID [id number] 00:00:00 Test Item Value Reference Range Interpretation Comments CHOLESTEROL (test code = 2210) 303 MG/DL TRIGLYCERIDES (test code = 2232) 191 MG/DL HDL CHOLESTEROL (test code = 2220) 61 MG/DL CALC LDL CHOL (test code = 2237) 205 MG/DL RISK RATIO LDL/HDL (test code = 3.36 RATIO 2238) [id number] 00:00:00 Test Item Value Reference Range Interpretation Comments TSH, THIRD GENERATION (test code 0.769 UIU/ML = 2821) [id number] 00:00:00 Test Item Value Reference Range Interpretation Comments TSH, THIRD GENERATION (test code 0.769 UIU/ML = 2821) [id number] 00:00:00 Test Item Value Reference Range Interpretation Comments TSH, THIRD GENERATION (test code 0.769 UIU/ML = 2821) COMPREHENSIVE METABOLIC [id number] 00:00:00 Test Item Value Reference Range Interpretation Comments GLUCOSE (test code = 2217) 131 MG/DL BUN (test code = 2208) 13 MG/DL CREATININE (test code = 2214) 0.65 MG/DL eGFR AMER. (test code 113 ML/MIN/1.73 = 71301) eGFR NON- AMER. (test 97 ML/MIN/1.73 code = 15884) CALC BUN/CREAT (test code = 20 RATIO [...] code = 2219) 23 U/L COMPREHENSIVE METABOLIC [id number] 00:00:00 Test Item Value Reference Range Interpretation Comments GLUCOSE (test code = 2217) 131 MG/DL BUN (test code = 2208) 13 MG/DL CREATININE (test code = 2214) 0.65 MG/DL eGFR AMER. (test code 113 ML/MIN/1.73 = 44944) eGFR NON- AMER. (test 97 ML/MIN/1.73 code = 12690) CALC BUN/CREAT (test code = 20 RATIO [...] (test code = 2219) 23 U/L HEMOGLOBIN [id number] 00:00:00 Test Item Value Reference Range Interpretation Comments HEMOGLOBIN A1c (test code = 22838) 6.8 % HEMOGLOBIN [id number] 00:00:00 Test Item Value Reference Range Interpretation Comments HEMOGLOBIN A1c (test code = 11577) 6.8 % LIPID [id number] 00:00:00 Test Item Value Reference Range Interpretation Comments CHOLESTEROL (test code = 2210) 303 MG/DL TRIGLYCERIDES (test code = 2232) 191 MG/DL HDL CHOLESTEROL (test code = 2220) 61 MG/DL CALC LDL CHOL (test code = 2237) 205 MG/DL RISK RATIO LDL/HDL (test code = 3.36 RATIO 2238) [id number] 00:00:00 Test Item Value Reference Range Interpretation Comments TSH, THIRD GENERATION (test code 0.769 UIU/ML = 2821) [id number] 00:00:00 Test Item Value Reference Range Interpretation Comments TSH, THIRD GENERATION (test code 0.769 UIU/ML = 2821) COMPREHENSIVE METABOLIC [id number] 00:00:00 Test Item Value Reference Range Interpretation Comments GLUCOSE (test code = 2217) 131 MG/DL BUN (test code = 2208) 13 MG/DL CREATININE (test code = 2214) 0.65 MG/DL eGFR AMER. (test code 113 ML/MIN/1.73 = 37388) eGFR NON- AMER. (test 97 ML/MIN/1.73 code = 89237) CALC BUN/CREAT (test code = 20 RATIO [...] (test code = 2219) 23 U/L HEMOGLOBIN [id number] 00:00:00 Test Item Value Reference Range Interpretation Comments HEMOGLOBIN A1c (test code = 05307) 6.8 % HEMOGLOBIN [id number] 00:00:00 Test Item Value Reference Range Interpretation Comments HEMOGLOBIN A1c (test code = 54001) 6.8 % HEMOGLOBIN [id number] 00:00:00 Test Item Value Reference Range Interpretation Comments HEMOGLOBIN A1c (test code = 80851) 6.8 % LIPID [id number] 00:00:00 Test Item Value Reference Range Interpretation Comments CHOLESTEROL (test code = 2210) 303 MG/DL TRIGLYCERIDES (test code = 2232) 191 MG/DL HDL CHOLESTEROL (test code = 2220) 61 MG/DL CALC LDL CHOL (test code = 2237) 205 MG/DL RISK RATIO LDL/HDL (test code = 3.36 RATIO 2238) LIPID [id number] 00:00:00 Test Item Value Reference Range Interpretation Comments CHOLESTEROL (test code = 2210) 303 MG/DL TRIGLYCERIDES (test code = 2232) 191 MG/DL HDL CHOLESTEROL (test code = 2220) 61 MG/DL CALC LDL CHOL (test code = 2237) 205 MG/DL RISK RATIO LDL/HDL (test code = 3.36 RATIO 2238) [id number] 00:00:00 Test Item Value Reference Range Interpretation Comments TSH, THIRD GENERATION (test code 0.769 UIU/ML = 2821) [id number] 00:00:00 Test Item Value Reference Range Interpretation Comments TSH, THIRD GENERATION (test code 0.769 UIU/ML = 2821) [id number] 00:00:00 Test Item Value Reference Range Interpretation Comments TSH, THIRD GENERATION (test code 0.769 UIU/ML = 2821) COMPREHENSIVE METABOLIC [id number] 00:00:00 Test Item Value Reference Range Interpretation Comments GLUCOSE (test code = 2217) 131 MG/DL BUN (test code = 2208) 13 MG/DL CREATININE (test code = 2214) 0.65 MG/DL eGFR AMER. (test code 113 ML/MIN/1.73 = 04825) eGFR NON- AMER. (test 97 ML/MIN/1.73 code = 80357) CALC BUN/CREAT (test code = 20 RATIO [...] code = 2219) 23 U/L COMPREHENSIVE METABOLIC [id number] 00:00:00 Test Item Value Reference Range Interpretation Comments GLUCOSE (test code = 2217) 131 MG/DL BUN (test code = 2208) 13 MG/DL CREATININE (test code = 2214) 0.65 MG/DL eGFR AMER. (test code 113 ML/MIN/1.73 = 79208) eGFR NON- AMER. (test 97 ML/MIN/1.73 code = 88983) CALC BUN/CREAT (test code = 20 RATIO [...] (test code = 2219) 23 U/L HEMOGLOBIN [id number] 00:00:00 Test Item Value Reference Range Interpretation Comments HEMOGLOBIN A1c (test code = 81618) 6.6 % HEMOGLOBIN [id number] 00:00:00 Test Item Value Reference Range Interpretation Comments HEMOGLOBIN A1c (test code = 60073) 6.6 % HEMOGLOBIN [id number] 00:00:00 Test Item Value Reference Range Interpretation Comments HEMOGLOBIN A1c (test code = 57684) 6.6 % LIPID [id number] 00:00:00 Test Item Value Reference Range Interpretation Comments CHOLESTEROL (test code = 2210) 261 MG/DL TRIGLYCERIDES (test code = 2232) 159 MG/DL HDL CHOLESTEROL (test code = 2220) 82 MG/DL CALC LDL CHOL (test code = 2237) 150 MG/DL RISK RATIO LDL/HDL (test code = 1.83 RATIO 2238) LIPID [id number] 00:00:00 Test Item Value Reference Range Interpretation Comments CHOLESTEROL (test code = 2210) 261 MG/DL TRIGLYCERIDES (test code = 2232) 159 MG/DL HDL CHOLESTEROL (test code = 2220) 82 MG/DL CALC LDL CHOL (test code = 2237) 150 MG/DL RISK RATIO LDL/HDL (test code = 1.83 RATIO 2238) COMPREHENSIVE METABOLIC [id number] 00:00:00 Test Item Value Reference Range Interpretation Comments GLUCOSE (test code = 2217) 144 MG/DL BUN (test code = 2208) 15 MG/DL CREATININE (test code = 2214) 0.85 MG/DL eGFR AMER. (test code 87 ML/MIN/1.73 = 54235) eGFR NON- AMER. (test 75 ML/MIN/1.73 code = 10788) CALC BUN/CREAT (test code = 18 RATIO [...] code = 2219) 50 U/L COMPREHENSIVE METABOLIC [id number] 00:00:00 Test Item Value Reference Range Interpretation Comments GLUCOSE (test code = 2217) 144 MG/DL BUN (test code = 2208) 15 MG/DL CREATININE (test code = 2214) 0.85 MG/DL eGFR AMER. (test code 87 ML/MIN/1.73 = 96263) eGFR NON- AMER. (test 75 ML/MIN/1.73 code = 14104) CALC BUN/CREAT (test code = 18 RATIO [...] THYROX. BIND. CAPAC. (test code 1.1 = 71954) T4 (THYROXINE) (test code = 4.3 UG/DL 2819) CORRECTED T4 (FTI) (test code = 3.9 UG/DL 2820) TSH, THIRD GENERATION (test 18.900 UIU/ML code = 2821) THYROID II PROFILE (T3U, T4, T7, TSH)2020-05-23 00:00:00 Test Item Value Reference Range Interpretation Comments T-UPTAKE (test code = 2816) 30.2 % THYROX. BIND. CAPAC. (test code 1.1 = 39200) T4 (THYROXINE) (test code = 4.3 UG/DL 2819) CORRECTED T4 (FTI) (test code = 3.9 UG/DL 2820) TSH, THIRD GENERATION (test 18.900 UIU/ML code = 2821) HEMOGLOBIN [id number] 00:00:00 Test Item Value Reference Range Interpretation Comments HEMOGLOBIN A1c (test code = 41298) 6.6 % HEMOGLOBIN [id number] 00:00:00 Test Item Value Reference Range Interpretation Comments HEMOGLOBIN A1c (test code = 74267) 6.6 % HEMOGLOBIN [id number] 00:00:00 Test Item Value Reference Range Interpretation Comments HEMOGLOBIN A1c (test code = 17591) 6.6 % LIPID [id number] 00:00:00 Test Item Value Reference Range Interpretation Comments CHOLESTEROL (test code = 2210) 261 MG/DL TRIGLYCERIDES (test code = 2232) 159 MG/DL HDL CHOLESTEROL (test code = 2220) 82 MG/DL CALC LDL CHOL (test code = 2237) 150 MG/DL RISK RATIO LDL/HDL (test code = 1.83 RATIO 2238) LIPID [id number] 00:00:00 Test Item Value Reference Range Interpretation Comments CHOLESTEROL (test code = 2210) 261 MG/DL TRIGLYCERIDES (test code = 2232) 159 MG/DL HDL CHOLESTEROL (test code = 2220) 82 MG/DL CALC LDL CHOL (test code = 2237) 150 MG/DL RISK RATIO LDL/HDL (test code = 1.83 RATIO 2238) COMPREHENSIVE METABOLIC [id number] 00:00:00 Test Item Value Reference Range Interpretation Comments GLUCOSE (test code = 2217) 144 MG/DL BUN (test code = 2208) 15 MG/DL CREATININE (test code = 2214) 0.85 MG/DL eGFR AMER. (test code 87 ML/MIN/1.73 = 23374) eGFR NON- AMER. (test 75 ML/MIN/1.73 code = 25206) CALC BUN/CREAT (test code = 18 RATIO [...] code = 2219) 50 U/L COMPREHENSIVE METABOLIC [id number] 00:00:00 Test Item Value Reference Range Interpretation Comments GLUCOSE (test code = 2217) 144 MG/DL BUN (test code = 2208) 15 MG/DL CREATININE (test code = 2214) 0.85 MG/DL eGFR AMER. (test code 87 ML/MIN/1.73 = 12110) eGFR NON- AMER. (test 75 ML/MIN/1.73 code = 92157) CALC BUN/CREAT (test code = 18 RATIO [...] THYROX. BIND. CAPAC. (test code 1.1 = 66947) T4 (THYROXINE) (test code = 4.3 UG/DL 2818) CORRECTED T4 (FTI) (test code = 3.9 UG/DL 2820) TSH, THIRD GENERATION (test 18.900 UIU/ML code = 2821) THYROID II PROFILE (T3U, T4, T7, TSH)2020-05-23 00:00:00 Test Item Value Reference Range Interpretation Comments T-UPTAKE (test code = 2817) 30.2 % THYROX. BIND. CAPAC. (test code 1.1 = 41068) T4 (THYROXINE) (test code = 4.3 UG/DL 2819) CORRECTED T4 (FTI) (test code = 3.9 UG/DL 2820) TSH, THIRD GENERATION (test 18.900 UIU/ML code = 2821) HEMOGLOBIN [id number] 00:00:00 Test Item Value Reference Range Interpretation Comments HEMOGLOBIN A1c (test code = 37259) 6.6 % HEMOGLOBIN [id number] 00:00:00 Test Item Value Reference Range Interpretation Comments HEMOGLOBIN A1c (test code = 52305) 6.6 % LIPID [id number] 00:00:00 Test Item Value Reference Range Interpretation Comments CHOLESTEROL (test code = 2210) 261 MG/DL TRIGLYCERIDES (test code = 2232) 159 MG/DL HDL CHOLESTEROL (test code = 2220) 82 MG/DL CALC LDL CHOL (test code = 2237) 150 MG/DL RISK RATIO LDL/HDL (test code = 1.83 RATIO 2238) COMPREHENSIVE METABOLIC [id number] 00:00:00 Test Item Value Reference Range Interpretation Comments GLUCOSE (test code = 2217) 144 MG/DL BUN (test code = 2208) 15 MG/DL CREATININE (test code = 2214) 0.85 MG/DL eGFR AMER. (test code 87 ML/MIN/1.73 = 68130) eGFR NON- AMER. (test 75 ML/MIN/1.73 code = 18718) CALC BUN/CREAT (test code = 18 RATIO [...] THYROX. BIND. CAPAC. (test code 1.1 = 66468) T4 (THYROXINE) (test code = 4.3 UG/DL 281) CORRECTED T4 (FTI) (test code = 3.9 UG/DL 2820) TSH, THIRD GENERATION (test 18.900 UIU/ML code = 2821) HEMOGLOBIN [id number] 00:00:00 Test Item Value Reference Range Interpretation Comments HEMOGLOBIN A1c (test code = 89244) 6.6 % HEMOGLOBIN [id number] 00:00:00 Test Item Value Reference Range Interpretation Comments HEMOGLOBIN A1c (test code = 43889) 6.6 % HEMOGLOBIN [id number] 00:00:00 Test Item Value Reference Range Interpretation Comments HEMOGLOBIN A1c (test code = 90646) 6.6 % LIPID [id number] 00:00:00 Test Item Value Reference Range Interpretation Comments CHOLESTEROL (test code = 2210) 261 MG/DL TRIGLYCERIDES (test code = 2232) 159 MG/DL HDL CHOLESTEROL (test code = 2220) 82 MG/DL CALC LDL CHOL (test code = 2237) 150 MG/DL RISK RATIO LDL/HDL (test code = 1.83 RATIO 2238) LIPID [id number] 00:00:00 Test Item Value Reference Range Interpretation Comments CHOLESTEROL (test code = 2210) 261 MG/DL TRIGLYCERIDES (test code = 2232) 159 MG/DL HDL CHOLESTEROL (test code = 2220) 82 MG/DL CALC LDL CHOL (test code = 2237) 150 MG/DL RISK RATIO LDL/HDL (test code = 1.83 RATIO 2238) COMPREHENSIVE METABOLIC [id number] 00:00:00 Test Item Value Reference Range Interpretation Comments GLUCOSE (test code = 2217) 144 MG/DL BUN (test code = 2208) 15 MG/DL CREATININE (test code = 2214) 0.85 MG/DL eGFR AMER. (test code 87 ML/MIN/1.73 = 70712) eGFR NON- AMER. (test 75 ML/MIN/1.73 code = 87808) CALC BUN/CREAT (test code = 18 RATIO [...] code = 2219) 50 U/L COMPREHENSIVE METABOLIC [id number] 00:00:00 Test Item Value Reference Range Interpretation Comments GLUCOSE (test code = 2217) 144 MG/DL BUN (test code = 2208) 15 MG/DL CREATININE (test code = 2214) 0.85 MG/DL eGFR AMER. (test code 87 ML/MIN/1.73 = 36222) eGFR NON- AMER. (test 75 ML/MIN/1.73 code = 09067) CALC BUN/CREAT (test code = 18 RATIO [...] THYROX. BIND. CAPAC. (test code 1.1 = 76409) T4 (THYROXINE) (test code = 4.3 UG/DL 2819) CORRECTED T4 (FTI) (test code = 3.9 UG/DL 2820) TSH, THIRD GENERATION (test 18.900 UIU/ML code = 2821) THYROID II PROFILE (T3U, T4, T7, TSH)2020-05-23 00:00:00 Test Item Value Reference Range Interpretation Comments T-UPTAKE (test code = 2817) 30.2 % THYROX. BIND. CAPAC. (test code 1.1 = 20302) T4 (THYROXINE) (test code = 4.3 UG/DL 2819) CORRECTED T4 (FTI) (test code = 3.9 UG/DL 2820) TSH, THIRD GENERATION (test 18.900 UIU/ML code = 2821) HEMOGLOBIN [id number] 00:00:00 Test Item Value Reference Range Interpretation Comments HEMOGLOBIN A1c (test code = 58168) 6.7 % HEMOGLOBIN [id number] 00:00:00 Test Item Value Reference Range Interpretation Comments HEMOGLOBIN A1c (test code = 54027) 6.7 % HEMOGLOBIN [id number] 00:00:00 Test Item Value Reference Range Interpretation Comments HEMOGLOBIN A1c (test code = 54818) 6.7 % LIPID [id number] 00:00:00 Test Item Value Reference Range Interpretation Comments CHOLESTEROL (test code = 2210) 267 MG/DL TRIGLYCERIDES (test code = 2232) 137 MG/DL HDL CHOLESTEROL (test code = 2220) 48 MG/DL CALC LDL CHOL (test code = 2237) 192 MG/DL RISK RATIO LDL/HDL (test code = 4.00 RATIO 2238) LIPID [id number] 00:00:00 Test Item Value Reference Range Interpretation Comments CHOLESTEROL (test code = 2210) 267 MG/DL TRIGLYCERIDES (test code = 2232) 137 MG/DL HDL CHOLESTEROL (test code = 2220) 48 MG/DL CALC LDL CHOL (test code = 2237) 192 MG/DL RISK RATIO LDL/HDL (test code = 4.00 RATIO 2238) COMPREHENSIVE METABOLIC [id number] 00:00:00 Test Item Value Reference Range Interpretation Comments GLUCOSE (test code = 2217) 155 MG/DL BUN (test code = 2208) 14 MG/DL CREATININE (test code = 2214) 0.52 MG/DL eGFR AMER. (test code 122 ML/MIN/1.73 = 53360) eGFR NON- AMER. (test 105 ML/MIN/1.73 code = 54531) CALC BUN/CREAT (test code = 27 RATIO [...] code = 2219) 27 U/L COMPREHENSIVE METABOLIC [id number] 00:00:00 Test Item Value Reference Range Interpretation Comments GLUCOSE (test code = 2217) 155 MG/DL BUN (test code = 2208) 14 MG/DL CREATININE (test code = 2214) 0.52 MG/DL eGFR AMER. (test code 122 ML/MIN/1.73 = 92488) eGFR NON- AMER. (test 105 ML/MIN/1.73 code = 98438) CALC BUN/CREAT (test code = 27 RATIO [...] THYROX. BIND. CAPAC. (test code 1.0 = 22565) T4 (THYROXINE) (test code = 4.7 UG/DL 2819) CORRECTED T4 (FTI) (test code = 4.7 UG/DL 2820) TSH, THIRD GENERATION (test code 0.201 UIU/ML = 2821) THYROID II PROFILE (T3U, T4, T7, TSH)2019 00:00:00 Test Item Value Reference Range Interpretation Comments T-UPTAKE (test code = 7) 33.1 % THYROX. BIND. CAPAC. (test code 1.0 = 66602) T4 (THYROXINE) (test code = 4.7 UG/DL 2819) CORRECTED T4 (FTI) (test code = 4.7 UG/DL 2820) TSH, THIRD GENERATION (test code 0.201 UIU/ML = 2821) HEMOGLOBIN [id number] 00:00:00 Test Item Value Reference Range Interpretation Comments HEMOGLOBIN A1c (test code = 26262) 6.7 % HEMOGLOBIN [id number] 00:00:00 Test Item Value Reference Range Interpretation Comments HEMOGLOBIN A1c (test code = 52303) 6.7 % HEMOGLOBIN [id number] 00:00:00 Test Item Value Reference Range Interpretation Comments HEMOGLOBIN A1c (test code = 07715) 6.7 % LIPID [id number] 00:00:00 Test Item Value Reference Range Interpretation Comments CHOLESTEROL (test code = 2210) 267 MG/DL TRIGLYCERIDES (test code = 2232) 137 MG/DL HDL CHOLESTEROL (test code = 2220) 48 MG/DL CALC LDL CHOL (test code = 2237) 192 MG/DL RISK RATIO LDL/HDL (test code = 4.00 RATIO 2238) LIPID [id number] 00:00:00 Test Item Value Reference Range Interpretation Comments CHOLESTEROL (test code = 2210) 267 MG/DL TRIGLYCERIDES (test code = 2232) 137 MG/DL HDL CHOLESTEROL (test code = 2220) 48 MG/DL CALC LDL CHOL (test code = 2237) 192 MG/DL RISK RATIO LDL/HDL (test code = 4.00 RATIO 2238) COMPREHENSIVE METABOLIC [id number] 00:00:00 Test Item Value Reference Range Interpretation Comments GLUCOSE (test code = 2217) 155 MG/DL BUN (test code = 2208) 14 MG/DL CREATININE (test code = 2214) 0.52 MG/DL eGFR AMER. (test code 122 ML/MIN/1.73 = 64790) eGFR NON- AMER. (test 105 ML/MIN/1.73 code = 60188) CALC BUN/CREAT (test code = 27 RATIO [...] code = 2219) 27 U/L COMPREHENSIVE METABOLIC [id number] 00:00:00 Test Item Value Reference Range Interpretation Comments GLUCOSE (test code = 2217) 155 MG/DL BUN (test code = 2208) 14 MG/DL CREATININE (test code = 2214) 0.52 MG/DL eGFR AMER. (test code 122 ML/MIN/1.73 = 70211) eGFR NON- AMER. (test 105 ML/MIN/1.73 code = 59855) CALC BUN/CREAT (test code = 27 RATIO [...] THYROX. BIND. CAPAC. (test code 1.0 = 90779) T4 (THYROXINE) (test code = 4.7 UG/DL 2819) CORRECTED T4 (FTI) (test code = 4.7 UG/DL 2820) TSH, THIRD GENERATION (test code 0.201 UIU/ML = 2821) THYROID II PROFILE (T3U, T4, T7, TSH)2019 00:00:00 Test Item Value Reference Range Interpretation Comments T-UPTAKE (test code = 7) 33.1 % THYROX. BIND. CAPAC. (test code 1.0 = 14160) T4 (THYROXINE) (test code = 4.7 UG/DL 2819) CORRECTED T4 (FTI) (test code = 4.7 UG/DL 2820) TSH, THIRD GENERATION (test code 0.201 UIU/ML = 2821) HEMOGLOBIN [id number] 00:00:00 Test Item Value Reference Range Interpretation Comments HEMOGLOBIN A1c (test code = 31852) 6.7 % HEMOGLOBIN [id number] 00:00:00 Test Item Value Reference Range Interpretation Comments HEMOGLOBIN A1c (test code = 57157) 6.7 % LIPID [id number] 00:00:00 Test Item Value Reference Range Interpretation Comments CHOLESTEROL (test code = 2210) 267 MG/DL TRIGLYCERIDES (test code = 2232) 137 MG/DL HDL CHOLESTEROL (test code = 2220) 48 MG/DL CALC LDL CHOL (test code = 2237) 192 MG/DL RISK RATIO LDL/HDL (test code = 4.00 RATIO 2238) COMPREHENSIVE METABOLIC [id number] 00:00:00 Test Item Value Reference Range Interpretation Comments GLUCOSE (test code = 2217) 155 MG/DL BUN (test code = 2208) 14 MG/DL CREATININE (test code = 2214) 0.52 MG/DL eGFR AMER. (test code 122 ML/MIN/1.73 = 27513) eGFR NON- AMER. (test 105 ML/MIN/1.73 code = 42543) CALC BUN/CREAT (test code = 27 RATIO [...] THYROX. BIND. CAPAC. (test code 1.0 = 73110) T4 (THYROXINE) (test code = 4.7 UG/DL 2819) CORRECTED T4 (FTI) (test code = 4.7 UG/DL 2820) TSH, THIRD GENERATION (test code 0.201 UIU/ML = 2821) HEMOGLOBIN [id number] 00:00:00 Test Item Value Reference Range Interpretation Comments HEMOGLOBIN A1c (test code = 19628) 6.7 % HEMOGLOBIN [id number] 00:00:00 Test Item Value Reference Range Interpretation Comments HEMOGLOBIN A1c (test code = 58971) 6.7 % HEMOGLOBIN [id number] 00:00:00 Test Item Value Reference Range Interpretation Comments HEMOGLOBIN A1c (test code = 52756) 6.7 % LIPID [id number] 00:00:00 Test Item Value Reference Range Interpretation Comments CHOLESTEROL (test code = 2210) 267 MG/DL TRIGLYCERIDES (test code = 2232) 137 MG/DL HDL CHOLESTEROL (test code = 2220) 48 MG/DL CALC LDL CHOL (test code = 2237) 192 MG/DL RISK RATIO LDL/HDL (test code = 4.00 RATIO 2238) LIPID [id number] 00:00:00 Test Item Value Reference Range Interpretation Comments CHOLESTEROL (test code = 2210) 267 MG/DL TRIGLYCERIDES (test code = 2232) 137 MG/DL HDL CHOLESTEROL (test code = 2220) 48 MG/DL CALC LDL CHOL (test code = 2237) 192 MG/DL RISK RATIO LDL/HDL (test code = 4.00 RATIO 2238) COMPREHENSIVE METABOLIC [id number] 00:00:00 Test Item Value Reference Range Interpretation Comments GLUCOSE (test code = 2217) 155 MG/DL BUN (test code = 2208) 14 MG/DL CREATININE (test code = 2214) 0.52 MG/DL eGFR AMER. (test code 122 ML/MIN/1.73 = 20528) eGFR NON- AMER. (test 105 ML/MIN/1.73 code = 78372) CALC BUN/CREAT (test code = 27 RATIO [...] code = 2219) 27 U/L COMPREHENSIVE METABOLIC [id number] 00:00:00 Test Item Value Reference Range Interpretation Comments GLUCOSE (test code = 2217) 155 MG/DL BUN (test code = 2208) 14 MG/DL CREATININE (test code = 2214) 0.52 MG/DL eGFR AMER. (test code 122 ML/MIN/1.73 = 54821) eGFR NON- AMER. (test 105 ML/MIN/1.73 code = 63763) CALC BUN/CREAT (test code = 27 RATIO [...] THYROX. BIND. CAPAC. (test code 1.0 = 78817) T4 (THYROXINE) (test code = 4.7 UG/DL 281) CORRECTED T4 (FTI) (test code = 4.7 UG/DL 2820) TSH, THIRD GENERATION (test code 0.201 UIU/ML = 2821) THYROID II PROFILE (T3U, T4, T7, TSH)2019 00:00:00 Test Item Value Reference Range Interpretation Comments T-UPTAKE (test code = 2817) 33.1 % THYROX. BIND. CAPAC. (test code 1.0 = 84195) T4 (THYROXINE) (test code = 4.7 UG/DL 2819) CORRECTED T4 (FTI) (test code = 4.7 UG/DL 2820) TSH, THIRD GENERATION (test code 0.201 UIU/ML = 2821) SARS-CoV-2 (COVID-19) by RT-PCR (HIGH RISK)2019-09-18 00:00:00 Test Item Value Reference Range Interpretation Comments SARS-CoV-2 INTERPRETATION (test NEGATIVE code = 77329) SOURCE (test code = 01982) NOT SPECIFIED SARS-CoV-2 (COVID-19) by RT-PCR (HIGH RISK)2019-09-18 00:00:00 Test Item Value Reference Range Interpretation Comments SARS-CoV-2 INTERPRETATION (test NEGATIVE code = 85457) SOURCE (test code = 82904) NOT SPECIFIED SARS-CoV-2 (COVID-19) by RT-PCR (HIGH RISK)2019-09-18 00:00:00 Test Item Value Reference Range Interpretation Comments SARS-CoV-2 INTERPRETATION (test NEGATIVE code = 25388) SOURCE (test code = 11720) NOT SPECIFIED SARS-CoV-2 (COVID-19) by RT-PCR (HIGH RISK)2019-09-18 00:00:00 Test Item Value Reference Range Interpretation Comments SARS-CoV-2 INTERPRETATION (test NEGATIVE code = 83652) SOURCE (test code = 37578) NOT SPECIFIED SARS-CoV-2 (COVID-19) by RT-PCR (HIGH RISK)2019-09-18 00:00:00 Test Item Value Reference Range Interpretation Comments SARS-CoV-2 INTERPRETATION (test NEGATIVE code = 68619) SOURCE (test code = 21552) NOT SPECIFIED SARS-CoV-2 (COVID-19) by RT-PCR (HIGH RISK)2019-09-18 00:00:00 Test Item Value Reference Range Interpretation Comments SARS-CoV-2 INTERPRETATION (test NEGATIVE code = 63883) SOURCE (test code = 54236) NOT SPECIFIED SARS-CoV-2 (COVID-19) by RT-PCR (HIGH RISK)2019-09-18 00:00:00 Test Item Value Reference Range Interpretation Comments SARS-CoV-2 INTERPRETATION (test NEGATIVE code = 51201) SOURCE (test code = 10691) NOT SPECIFIED [id number] 00:00:00 Test Item Value Reference Range Interpretation Comments TSH, THIRD GENERATION (test code 2.490 UIU/ML = 2821) [id number] 00:00:00 Test Item Value Reference Range Interpretation Comments TSH, THIRD GENERATION (test code 2.490 UIU/ML = 2821) [id number] 00:00:00 Test Item Value Reference Range Interpretation Comments TSH, THIRD GENERATION (test code 2.490 UIU/ML = 2821) HEMOGLOBIN [id number] 00:00:00 Test Item Value Reference Range Interpretation Comments HEMOGLOBIN A1c (test code = 03673) 6.4 % HEMOGLOBIN [id number] 00:00:00 Test Item Value Reference Range Interpretation Comments HEMOGLOBIN A1c (test code = 80578) 6.4 % HEMOGLOBIN [id number] 00:00:00 Test Item Value Reference Range Interpretation Comments HEMOGLOBIN A1c (test code = 65587) 6.4 % COMPREHENSIVE METABOLIC [id number] 00:00:00 Test Item Value Reference Range Interpretation Comments GLUCOSE (test code = 2217) 206 MG/DL BUN (test code = 2208) 23 MG/DL CREATININE (test code = 2214) 0.67 MG/DL eGFR AMER. (test code 112 ML/MIN/1.73 = 83243) eGFR NON- AMER. (test 97 ML/MIN/1.73 code = 22266) CALC BUN/CREAT (test code = 34 RATIO [...] code = 2219) 25 U/L COMPREHENSIVE METABOLIC [id number] 00:00:00 Test Item Value Reference Range Interpretation Comments GLUCOSE (test code = 2217) 206 MG/DL BUN (test code = 2208) 23 MG/DL CREATININE (test code = 2214) 0.67 MG/DL eGFR AMER. (test code 112 ML/MIN/1.73 = 30044) eGFR NON- AMER. (test 97 ML/MIN/1.73 code = 02426) CALC BUN/CREAT (test code = 34 RATIO [...] ALT (test code = 2219) 25 U/L [id number] 00:00:00 Test Item Value Reference Range Interpretation Comments TSH, THIRD GENERATION (test code 2.490 UIU/ML = 2821) [id number] 00:00:00 Test Item Value Reference Range Interpretation Comments TSH, THIRD GENERATION (test code 2.490 UIU/ML = 2821) [id number] 00:00:00 Test Item Value Reference Range Interpretation Comments TSH, THIRD GENERATION (test code 2.490 UIU/ML = 2821) HEMOGLOBIN [id number] 00:00:00 Test Item Value Reference Range Interpretation Comments HEMOGLOBIN A1c (test code = 34039) 6.4 % HEMOGLOBIN [id number] 00:00:00 Test Item Value Reference Range Interpretation Comments HEMOGLOBIN A1c (test code = 14476) 6.4 % HEMOGLOBIN [id number] 00:00:00 Test Item Value Reference Range Interpretation Comments HEMOGLOBIN A1c (test code = 26636) 6.4 % COMPREHENSIVE METABOLIC [id number] 00:00:00 Test Item Value Reference Range Interpretation Comments GLUCOSE (test code = 2217) 206 MG/DL BUN (test code = 2208) 23 MG/DL CREATININE (test code = 2214) 0.67 MG/DL eGFR AMER. (test code 112 ML/MIN/1.73 = 50012) eGFR NON- AMER. (test 97 ML/MIN/1.73 code = 01233) CALC BUN/CREAT (test code = 34 RATIO [...] code = 2219) 25 U/L COMPREHENSIVE METABOLIC [id number] 00:00:00 Test Item Value Reference Range Interpretation Comments GLUCOSE (test code = 2217) 206 MG/DL BUN (test code = 2208) 23 MG/DL CREATININE (test code = 2214) 0.67 MG/DL eGFR AMER. (test code 112 ML/MIN/1.73 = 14970) eGFR NON- AMER. (test 97 ML/MIN/1.73 code = 79069) CALC BUN/CREAT (test code = 34 RATIO [...] ALT (test code = 2219) 25 U/L [id number] 00:00:00 Test Item Value Reference Range Interpretation Comments TSH, THIRD GENERATION (test code 2.490 UIU/ML = 2821) [id number] 00:00:00 Test Item Value Reference Range Interpretation Comments TSH, THIRD GENERATION (test code 2.490 UIU/ML = 2821) HEMOGLOBIN [id number] 00:00:00 Test Item Value Reference Range Interpretation Comments HEMOGLOBIN A1c (test code = 34825) 6.4 % HEMOGLOBIN [id number] 00:00:00 Test Item Value Reference Range Interpretation Comments HEMOGLOBIN A1c (test code = 66359) 6.4 % COMPREHENSIVE METABOLIC [id number] 00:00:00 Test Item Value Reference Range Interpretation Comments GLUCOSE (test code = 2217) 206 MG/DL BUN (test code = 2208) 23 MG/DL CREATININE (test code = 2214) 0.67 MG/DL eGFR AMER. (test code 112 ML/MIN/1.73 = 99683) eGFR NON- AMER. (test 97 ML/MIN/1.73 code = 34483) CALC BUN/CREAT (test code = 34 RATIO [...] ALT (test code = 2219) 25 U/L [id number] 00:00:00 Test Item Value Reference Range Interpretation Comments TSH, THIRD GENERATION (test code 2.490 UIU/ML = 2821) [id number] 00:00:00 Test Item Value Reference Range Interpretation Comments TSH, THIRD GENERATION (test code 2.490 UIU/ML = 2821) [id number] 00:00:00 Test Item Value Reference Range Interpretation Comments TSH, THIRD GENERATION (test code 2.490 UIU/ML = 2821) HEMOGLOBIN [id number] 00:00:00 Test Item Value Reference Range Interpretation Comments HEMOGLOBIN A1c (test code = 82611) 6.4 % HEMOGLOBIN [id number] 00:00:00 Test Item Value Reference Range Interpretation Comments HEMOGLOBIN A1c (test code = 43463) 6.4 % HEMOGLOBIN [id number] 00:00:00 Test Item Value Reference Range Interpretation Comments HEMOGLOBIN A1c (test code = 50099) 6.4 % COMPREHENSIVE METABOLIC [id number] 00:00:00 Test Item Value Reference Range Interpretation Comments GLUCOSE (test code = 2217) 206 MG/DL BUN (test code = 2208) 23 MG/DL CREATININE (test code = 2214) 0.67 MG/DL eGFR AMER. (test code 112 ML/MIN/1.73 = 71105) eGFR NON- AMER. (test 97 ML/MIN/1.73 code = 63900) CALC BUN/CREAT (test code = 34 RATIO [...] code = 2219) 25 U/L COMPREHENSIVE METABOLIC [id number] 00:00:00 Test Item Value Reference Range Interpretation Comments GLUCOSE (test code = 2217) 206 MG/DL BUN (test code = 2208) 23 MG/DL CREATININE (test code = 2214) 0.67 MG/DL eGFR AMER. (test code 112 ML/MIN/1.73 = 29228) eGFR NON- AMER. (test 97 ML/MIN/1.73 code = 81092) CALC BUN/CREAT (test code = 34 RATIO [...] = 2219) 25 U/L VAGINAL PATHOGENS DNA [id number] 00:00:00 Test Item Value Reference Range Interpretation Comments MARK SPECIES (test code = ) NEGATIVE G. VAGINALIS (test code = ) NEGATIVE T. VAGINALIS (test code = ) NEGATIVE VAGINAL PATHOGENS DNA [id number] 00:00:00 Test Item Value Reference Range Interpretation Comments MARK SPECIES (test code = ) NEGATIVE G. VAGINALIS (test code = 51114) NEGATIVE T. VAGINALIS (test code = 33368) NEGATIVE VAGINAL PATHOGENS DNA [id number] 00:00:00 Test Item Value Reference Range Interpretation Comments MARK SPECIES (test code = 31285) NEGATIVE G. VAGINALIS (test code = 17310) NEGATIVE T. VAGINALIS (test code = 14357) NEGATIVE VAGINAL PATHOGENS DNA [id number] 00:00:00 Test Item Value Reference Range Interpretation Comments MARK SPECIES (test code = 38159) NEGATIVE G. VAGINALIS (test code = 22764) NEGATIVE T. VAGINALIS (test code = 81715) NEGATIVE VAGINAL PATHOGENS DNA [id number] 00:00:00 Test Item Value Reference Range Interpretation Comments MARK SPECIES (test code = 87653) NEGATIVE G. VAGINALIS (test code = 70673) NEGATIVE T. VAGINALIS (test code = 19309) NEGATIVE VAGINAL PATHOGENS DNA [id number] 00:00:00 Test Item Value Reference Range Interpretation Comments MARK SPECIES (test code = 31659) NEGATIVE G. VAGINALIS (test code = 50758) NEGATIVE T. VAGINALIS (test code = 29810) NEGATIVE VAGINAL PATHOGENS DNA [id number] 00:00:00 Test Item Value Reference Range Interpretation Comments MARK SPECIES (test code = 34619) NEGATIVE G. VAGINALIS (test code = 97604) NEGATIVE T. VAGINALIS (test code = 60447) NEGATIVE HEMOGLOBIN A1c [ADDED]2018-12-01 00:00:00 Test Item Value Reference Range Interpretation Comments HEMOGLOBIN A1c (test code = 02103) 6.7 % HEMOGLOBIN A1c [ADDED]2018-12-01 00:00:00 Test Item Value Reference Range Interpretation Comments HEMOGLOBIN A1c (test code = 88561) 6.7 % HEMOGLOBIN A1c [ADDED]2018-12-01 00:00:00 Test Item Value Reference Range Interpretation Comments HEMOGLOBIN A1c (test code = 47096) 6.7 % COMPREHENSIVE METABOLIC PANEL [ADDED]2018-12-01 00:00:00 Test Item Value Reference Range Interpretation Comments GLUCOSE (test code = 2217) 136 MG/DL BUN (test code = 2208) 15 MG/DL CREATININE (test code = 2214) 0.64 MG/DL eGFR AMER. (test code 115 ML/MIN/1.73 = 52606) eGFR NON- AMER. (test 99 ML/MIN/1.73 code = 40028) CALC BUN/CREAT (test code = 23 RATIO [...] eGFR AMER. (test code 115 ML/MIN/1.73 = 31197) eGFR NON- AMER. (test 99 ML/MIN/1.73 code = 40786) CALC BUN/CREAT (test code = 23 RATIO [...] Interpretation Comments HEMOGLOBIN A1c (test code = 81528) 6.7 % HEMOGLOBIN A1c [ADDED]2018-12-01 00:00:00 Test Item Value Reference Range Interpretation Comments HEMOGLOBIN A1c (test code = 44441) 6.7 % HEMOGLOBIN A1c [ADDED]2018-12-01 00:00:00 Test Item Value Reference Range Interpretation Comments HEMOGLOBIN A1c (test code = 06116) 6.7 % COMPREHENSIVE METABOLIC PANEL [ADDED]2018-12-01 00:00:00 Test Item Value Reference Range Interpretation Comments GLUCOSE (test code = 2217) 136 MG/DL BUN (test code = 2208) 15 MG/DL CREATININE (test code = 2214) 0.64 MG/DL eGFR AMER. (test code 115 ML/MIN/1.73 = 10071) eGFR NON- AMER. (test 99 ML/MIN/1.73 code = 23285) CALC BUN/CREAT (test code = 23 RATIO [...] eGFR AMER. (test code 115 ML/MIN/1.73 = 50516) eGFR NON- AMER. (test 99 ML/MIN/1.73 code = 60674) CALC BUN/CREAT (test code = 23 RATIO [...] Interpretation Comments HEMOGLOBIN A1c (test code = 03620) 6.7 % HEMOGLOBIN A1c [ADDED]2018-12-01 00:00:00 Test Item Value Reference Range Interpretation Comments HEMOGLOBIN A1c (test code = 48976) 6.7 % COMPREHENSIVE METABOLIC PANEL [ADDED]2018-12-01 00:00:00 Test Item Value Reference Range Interpretation Comments GLUCOSE (test code = 2217) 136 MG/DL BUN (test code = 2208) 15 MG/DL CREATININE (test code = 2214) 0.64 MG/DL eGFR AMER. (test code 115 ML/MIN/1.73 = 29170) eGFR NON- AMER. (test 99 ML/MIN/1.73 code = 48435) CALC BUN/CREAT (test code = 23 RATIO [...] Interpretation Comments HEMOGLOBIN A1c (test code = 94812) 6.7 % HEMOGLOBIN A1c [ADDED]2018-12-01 00:00:00 Test Item Value Reference Range Interpretation Comments HEMOGLOBIN A1c (test code = 65381) 6.7 % HEMOGLOBIN A1c [ADDED]2018-12-01 00:00:00 Test Item Value Reference Range Interpretation Comments HEMOGLOBIN A1c (test code = 94836) 6.7 % COMPREHENSIVE METABOLIC PANEL [ADDED]2018-12-01 00:00:00 Test Item Value Reference Range Interpretation Comments GLUCOSE (test code = 2217) 136 MG/DL BUN (test code = 2208) 15 MG/DL CREATININE (test code = 2214) 0.64 MG/DL eGFR AMER. (test code 115 ML/MIN/1.73 = 19647) eGFR NON- AMER. (test 99 ML/MIN/1.73 code = 10607) CALC BUN/CREAT (test code = 23 RATIO [...] eGFR AMER. (test code 115 ML/MIN/1.73 = 08628) eGFR NON- AMER. (test 99 ML/MIN/1.73 code = 10111) CALC BUN/CREAT (test code = 23 RATIO [...] code 1.280 UIU/ML = 2821) CBC W/AUTO [id number] 00:00:00 Test Item Value Reference Range Interpretation [...] code = 1015) 346 K/UL CBC W/AUTO [id number] 00:00:00 Test Item Value Reference Range Interpretation [...] code = 1015) 346 K/UL CBC W/AUTO [id number] 00:00:00 Test Item Value Reference Range Interpretation [...] (test code = 1015) 346 K/UL HEMOGLOBIN [id number] 00:00:00 Test Item Value Reference Range Interpretation Comments HEMOGLOBIN A1c (test code = 91214) 5.9 % HEMOGLOBIN [id number] 00:00:00 Test Item Value Reference Range Interpretation Comments HEMOGLOBIN A1c (test code = 36325) 5.9 % HEMOGLOBIN [id number] 00:00:00 Test Item Value Reference Range Interpretation Comments HEMOGLOBIN A1c (test code = 82600) 5.9 % LIPID [id number] 00:00:00 Test Item Value Reference Range Interpretation Comments CHOLESTEROL (test code = 2210) 318 MG/DL TRIGLYCERIDES (test code = 2232) 263 MG/DL HDL CHOLESTEROL (test code = 2220) 51 MG/DL CALC LDL CHOL (test code = 2237) 214 MG/DL RISK RATIO LDL/HDL (test code = 4.20 RATIO 2238) LIPID [id number] 00:00:00 Test Item Value Reference Range Interpretation Comments CHOLESTEROL (test code = 2210) 318 MG/DL TRIGLYCERIDES (test code = 2232) 263 MG/DL HDL CHOLESTEROL (test code = 2220) 51 MG/DL CALC LDL CHOL (test code = 2237) 214 MG/DL RISK RATIO LDL/HDL (test code = 4.20 RATIO 2238) COMPREHENSIVE METABOLIC [id number] 00:00:00 Test Item Value Reference Range Interpretation Comments GLUCOSE (test code = 2217) 113 MG/DL BUN (test code = 2208) 18 MG/DL CREATININE (test code = 2214) 0.70 MG/DL eGFR AMER. (test code 111 ML/MIN/1.73 = 28006) eGFR NON- AMER. (test 96 ML/MIN/1.73 code = 15664) CALC BUN/CREAT (test code = 26 RATIO [...] code = 2219) 31 U/L COMPREHENSIVE METABOLIC [id number] 00:00:00 Test Item Value Reference Range Interpretation Comments GLUCOSE (test code = 2217) 113 MG/DL BUN (test code = 2208) 18 MG/DL CREATININE (test code = 2214) 0.70 MG/DL eGFR AMER. (test code 111 ML/MIN/1.73 = 34999) eGFR NON- AMER. (test 96 ML/MIN/1.73 code = 94577) CALC BUN/CREAT (test code = 26 RATIO [...] ALT (test code = 2219) 31 U/L [id number] 00:00:00 Test Item Value Reference Range Interpretation Comments TSH, THIRD GENERATION (test code 2.520 UIU/ML = 2821) [id number] 00:00:00 Test Item Value Reference Range Interpretation Comments TSH, THIRD GENERATION (test code 2.520 UIU/ML = 2821) [id number] 00:00:00 Test Item Value Reference Range Interpretation Comments TSH, THIRD GENERATION (test code 2.520 UIU/ML = 2821) CBC W/AUTO [id number] 00:00:00 Test Item Value Reference Range Interpretation [...] code = 1015) 346 K/UL CBC W/AUTO [id number] 00:00:00 Test Item Value Reference Range Interpretation [...] code = 1015) 346 K/UL CBC W/AUTO [id number] 00:00:00 Test Item Value Reference Range Interpretation [...] (test code = 1015) 346 K/UL HEMOGLOBIN [id number] 00:00:00 Test Item Value Reference Range Interpretation Comments HEMOGLOBIN A1c (test code = 48420) 5.9 % HEMOGLOBIN [id number] 00:00:00 Test Item Value Reference Range Interpretation Comments HEMOGLOBIN A1c (test code = 10400) 5.9 % HEMOGLOBIN [id number] 00:00:00 Test Item Value Reference Range Interpretation Comments HEMOGLOBIN A1c (test code = 19928) 5.9 % LIPID [id number] 00:00:00 Test Item Value Reference Range Interpretation Comments CHOLESTEROL (test code = 2210) 318 MG/DL TRIGLYCERIDES (test code = 2232) 263 MG/DL HDL CHOLESTEROL (test code = 2220) 51 MG/DL CALC LDL CHOL (test code = 2237) 214 MG/DL RISK RATIO LDL/HDL (test code = 4.20 RATIO 2238) LIPID [id number] 00:00:00 Test Item Value Reference Range Interpretation Comments CHOLESTEROL (test code = 2210) 318 MG/DL TRIGLYCERIDES (test code = 2232) 263 MG/DL HDL CHOLESTEROL (test code = 2220) 51 MG/DL CALC LDL CHOL (test code = 2237) 214 MG/DL RISK RATIO LDL/HDL (test code = 4.20 RATIO 2238) COMPREHENSIVE METABOLIC [id number] 00:00:00 Test Item Value Reference Range Interpretation Comments GLUCOSE (test code = 2217) 113 MG/DL BUN (test code = 2208) 18 MG/DL CREATININE (test code = 2214) 0.70 MG/DL eGFR AMER. (test code 111 ML/MIN/1.73 = 06882) eGFR NON- AMER. (test 96 ML/MIN/1.73 code = 40219) CALC BUN/CREAT (test code = 26 RATIO [...] code = 2219) 31 U/L COMPREHENSIVE METABOLIC [id number] 00:00:00 Test Item Value Reference Range Interpretation Comments GLUCOSE (test code = 2217) 113 MG/DL BUN (test code = 2208) 18 MG/DL CREATININE (test code = 2214) 0.70 MG/DL eGFR AMER. (test code 111 ML/MIN/1.73 = 27749) eGFR NON- AMER. (test 96 ML/MIN/1.73 code = 07746) CALC BUN/CREAT (test code = 26 RATIO [...] ALT (test code = 2219) 31 U/L [id number] 00:00:00 Test Item Value Reference Range Interpretation Comments TSH, THIRD GENERATION (test code 2.520 UIU/ML = 2821) [id number] 00:00:00 Test Item Value Reference Range Interpretation Comments TSH, THIRD GENERATION (test code 2.520 UIU/ML = 2821) [id number] 00:00:00 Test Item Value Reference Range Interpretation Comments TSH, THIRD GENERATION (test code 2.520 UIU/ML = 2821) CBC W/AUTO [id number] 00:00:00 Test Item Value Reference Range Interpretation [...] code = 1015) 346 K/UL CBC W/AUTO [id number] 00:00:00 Test Item Value Reference Range Interpretation [...] (test code = 1015) 346 K/UL HEMOGLOBIN [id number] 00:00:00 Test Item Value Reference Range Interpretation Comments HEMOGLOBIN A1c (test code = 74497) 5.9 % HEMOGLOBIN [id number] 00:00:00 Test Item Value Reference Range Interpretation Comments HEMOGLOBIN A1c (test code = 79680) 5.9 % LIPID [id number] 00:00:00 Test Item Value Reference Range Interpretation Comments CHOLESTEROL (test code = 2210) 318 MG/DL TRIGLYCERIDES (test code = 2232) 263 MG/DL HDL CHOLESTEROL (test code = 2220) 51 MG/DL CALC LDL CHOL (test code = 2237) 214 MG/DL RISK RATIO LDL/HDL (test code = 4.20 RATIO 2238) COMPREHENSIVE METABOLIC [id number] 00:00:00 Test Item Value Reference Range Interpretation Comments GLUCOSE (test code = 2217) 113 MG/DL BUN (test code = 2208) 18 MG/DL CREATININE (test code = 2214) 0.70 MG/DL eGFR AMER. (test code 111 ML/MIN/1.73 = 18854) eGFR NON- AMER. (test 96 ML/MIN/1.73 code = 33101) CALC BUN/CREAT (test code = 26 RATIO 223) SODIUM (test code = 2231) 137 MEQ/L [...] ALT (test code = 2219) 31 U/L [id number] 00:00:00 Test Item Value Reference Range Interpretation Comments TSH, THIRD GENERATION (test code 2.520 UIU/ML = 2821) [id number] 00:00:00 Test Item Value Reference Range Interpretation Comments TSH, THIRD GENERATION (test code 2.520 UIU/ML = 2821) CBC W/AUTO [id number] 00:00:00 Test Item Value Reference Range Interpretation [...] code = 1015) 346 K/UL CBC W/AUTO [id number] 00:00:00 Test Item Value Reference Range Interpretation [...] code = 1015) 346 K/UL CBC W/AUTO [id number] 00:00:00 Test Item Value Reference Range Interpretation [...] (test code = 1015) 346 K/UL HEMOGLOBIN [id number] 00:00:00 Test Item Value Reference Range Interpretation Comments HEMOGLOBIN A1c (test code = 57705) 5.9 % HEMOGLOBIN [id number] 00:00:00 Test Item Value Reference Range Interpretation Comments HEMOGLOBIN A1c (test code = 66902) 5.9 % HEMOGLOBIN [id number] 00:00:00 Test Item Value Reference Range Interpretation Comments HEMOGLOBIN A1c (test code = 38214) 5.9 % LIPID [id number] 00:00:00 Test Item Value Reference Range Interpretation Comments CHOLESTEROL (test code = 2210) 318 MG/DL TRIGLYCERIDES (test code = 2232) 263 MG/DL HDL CHOLESTEROL (test code = 2220) 51 MG/DL CALC LDL CHOL (test code = 2237) 214 MG/DL RISK RATIO LDL/HDL (test code = 4.20 RATIO 2238) LIPID [id number] 00:00:00 Test Item Value Reference Range Interpretation Comments CHOLESTEROL (test code = 2210) 318 MG/DL TRIGLYCERIDES (test code = 2232) 263 MG/DL HDL CHOLESTEROL (test code = 2220) 51 MG/DL CALC LDL CHOL (test code = 2237) 214 MG/DL RISK RATIO LDL/HDL (test code = 4.20 RATIO 2238) COMPREHENSIVE METABOLIC [id number] 00:00:00 Test Item Value Reference Range Interpretation Comments GLUCOSE (test code = 2217) 113 MG/DL BUN (test code = 2208) 18 MG/DL CREATININE (test code = 2214) 0.70 MG/DL eGFR AMER. (test code 111 ML/MIN/1.73 = 81548) eGFR NON- AMER. (test 96 ML/MIN/1.73 code = 42068) CALC BUN/CREAT (test code = 26 RATIO [...] code = 2219) 31 U/L COMPREHENSIVE METABOLIC [id number] 00:00:00 Test Item Value Reference Range Interpretation Comments GLUCOSE (test code = 2217) 113 MG/DL BUN (test code = 2208) 18 MG/DL CREATININE (test code = 2214) 0.70 MG/DL eGFR AMER. (test code 111 ML/MIN/1.73 = 10237) eGFR NON- AMER. (test 96 ML/MIN/1.73 code = 14061) CALC BUN/CREAT (test code = 26 RATIO 5) SODIUM (test code = 2231) 137 MEQ/L [...] ALT (test code = 2219) 31 U/L [id number] 00:00:00 Test Item Value Reference Range Interpretation Comments TSH, THIRD GENERATION (test code 2.520 UIU/ML = 2821) [id number] 00:00:00 Test Item Value Reference Range Interpretation Comments TSH, THIRD GENERATION (test code 2.520 UIU/ML = 2821) [id number] 00:00:00 Test Item Value Reference Range Interpretation Comments TSH, THIRD GENERATION (test code 2.520 UIU/ML = 2821) CULTURE, [id number] 00:00:00 Test Item Value Reference Range Interpretation Comments CULTURE, URINE (test SPECIMEN NUMBER: code = 80866) [id number] CULTURE, [id number] 00:00:00 Test Item Value Reference Range Interpretation Comments CULTURE, URINE (test SPECIMEN NUMBER: code = 94033) [id number] CULTURE, [id number] 00:00:00 Test Item Value Reference Range Interpretation Comments CULTURE, URINE (test SPECIMEN NUMBER: code = 74845) [id number] CULTURE, [id number] 00:00:00 Test Item Value Reference Range Interpretation Comments CULTURE, URINE (test SPECIMEN NUMBER: code = 37168) [id number] CULTURE, [id number] 00:00:00 Test Item Value Reference Range Interpretation Comments CULTURE, URINE (test SPECIMEN NUMBER: code = 20905) [id number] CULTURE, [id number] 00:00:00 Test Item Value Reference Range Interpretation Comments CULTURE, URINE (test SPECIMEN NUMBER: code = 16806) [id number] CULTURE, [id number] 00:00:00 Test Item Value Reference Range Interpretation Comments CULTURE, URINE (test SPECIMEN NUMBER: code = 59716) [id number] CULTURE, [id number] 00:00:00 Test Item Value Reference Range Interpretation Comments CULTURE, URINE (test SPECIMEN NUMBER: code = 89038) [id number] CULTURE, [id number] 00:00:00 Test Item Value Reference Range Interpretation Comments CULTURE, URINE (test SPECIMEN NUMBER: code = 23190) [id number] CULTURE, [id number] 00:00:00 Test Item Value Reference Range Interpretation Comments CULTURE, URINE (test SPECIMEN NUMBER: code = 27374) [id number] CULTURE, [id number] 00:00:00 Test Item Value Reference Range Interpretation Comments CULTURE, URINE (test SPECIMEN NUMBER: code = 51730) [id number] CULTURE, [id number] 00:00:00 Test Item Value Reference Range Interpretation Comments CULTURE, URINE (test SPECIMEN NUMBER: code = 53350) [id number] CULTURE, [id number] 00:00:00 Test Item Value Reference Range Interpretation Comments CULTURE, URINE (test SPECIMEN NUMBER: code = 44709) [id number] CULTURE, [id number] 00:00:00 Test Item Value Reference Range Interpretation Comments CULTURE, URINE (test SPECIMEN NUMBER: code = 49121) [id number] BASIC METABOLIC [id number] 00:00:00 Test Item Value Reference Range Interpretation Comments GLUCOSE (test code = 2217) 135 MG/DL BUN (test code = 2208) 25 MG/DL CREATININE (test code = 2214) 0.76 MG/DL eGFR AMER. (test code 101 ML/MIN/1.73 = 15309) eGFR NON- AMER. (test 87 ML/MIN/1.73 code = 48052) SODIUM (test code = 2231) 139 MEQ/L POTASSIUM (test code = 2228) 4.7 MEQ/L CHLORIDE (test code = 2215) 99 MEQ/L CARBON DIOXIDE (test code = 26 MEQ/L 2206) CALCIUM (test code = 2209) 9.4 MG/DL BASIC METABOLIC [id number] 00:00:00 Test Item Value Reference Range Interpretation Comments GLUCOSE (test code = 2217) 135 MG/DL BUN (test code = 2208) 25 MG/DL CREATININE (test code = 2214) 0.76 MG/DL eGFR AMER. (test code 101 ML/MIN/1.73 = 81308) eGFR NON- AMER. (test 87 ML/MIN/1.73 code = 11539) SODIUM (test code = 2231) 139 MEQ/L POTASSIUM (test code = 2228) 4.7 MEQ/L CHLORIDE (test code = 2215) 99 MEQ/L CARBON DIOXIDE (test code = 26 MEQ/L 2206) CALCIUM (test code = 2209) 9.4 MG/DL LIPID [id number] 00:00:00 Test Item Value Reference Range Interpretation Comments CHOLESTEROL (test code = 2210) 262 MG/DL TRIGLYCERIDES (test code = 2232) 300 MG/DL HDL CHOLESTEROL (test code = 2220) 36 MG/DL CALC LDL CHOL (test code = 2237) 166 MG/DL RISK RATIO LDL/HDL (test code = 4.61 RATIO 2238) LIPID [id number] 00:00:00 Test Item Value Reference Range Interpretation Comments CHOLESTEROL (test code = 2210) 262 MG/DL TRIGLYCERIDES (test code = 2232) 300 MG/DL HDL CHOLESTEROL (test code = 2220) 36 MG/DL CALC LDL CHOL (test code = 2237) 166 MG/DL RISK RATIO LDL/HDL (test code = 4.61 RATIO 2238) HEMOGLOBIN [id number] 00:00:00 Test Item Value Reference Range Interpretation Comments HEMOGLOBIN A1c (test code = 48745) 6.2 % HEMOGLOBIN [id number] 00:00:00 Test Item Value Reference Range Interpretation Comments HEMOGLOBIN A1c (test code = 11241) 6.2 % HEMOGLOBIN [id number] 00:00:00 Test Item Value Reference Range Interpretation Comments HEMOGLOBIN A1c (test code = 78194) 6.2 % [id number] 00:00:00 Test Item Value Reference Range Interpretation Comments TSH, THIRD GENERATION (test code 0.988 UIU/ML = 2821) [id number] 00:00:00 Test Item Value Reference Range Interpretation Comments TSH, THIRD GENERATION (test code 0.988 UIU/ML = 2821) [id number] 00:00:00 Test Item Value Reference Range Interpretation Comments TSH, THIRD GENERATION (test code 0.988 UIU/ML = 2821) BASIC METABOLIC [id number] 00:00:00 Test Item Value Reference Range Interpretation Comments GLUCOSE (test code = 2217) 135 MG/DL BUN (test code = 2208) 25 MG/DL CREATININE (test code = 2214) 0.76 MG/DL eGFR AMER. (test code 101 ML/MIN/1.73 = 90878) eGFR NON- AMER. (test 87 ML/MIN/1.73 code = 53009) SODIUM (test code = 2231) 139 MEQ/L POTASSIUM (test code = 2228) 4.7 MEQ/L CHLORIDE (test code = 2215) 99 MEQ/L CARBON DIOXIDE (test code = 26 MEQ/L 2206) CALCIUM (test code = 2209) 9.4 MG/DL BASIC METABOLIC [id number] 00:00:00 Test Item Value Reference Range Interpretation Comments GLUCOSE (test code = 2217) 135 MG/DL BUN (test code = 2208) 25 MG/DL CREATININE (test code = 2214) 0.76 MG/DL eGFR AMER. (test code 101 ML/MIN/1.73 = 59904) eGFR NON- AMER. (test 87 ML/MIN/1.73 code = 65207) SODIUM (test code = 2231) 139 MEQ/L POTASSIUM (test code = 2228) 4.7 MEQ/L CHLORIDE (test code = 2215) 99 MEQ/L CARBON DIOXIDE (test code = 26 MEQ/L 2206) CALCIUM (test code = 2209) 9.4 MG/DL LIPID [id number] 00:00:00 Test Item Value Reference Range Interpretation Comments CHOLESTEROL (test code = 2210) 262 MG/DL TRIGLYCERIDES (test code = 2232) 300 MG/DL HDL CHOLESTEROL (test code = 2220) 36 MG/DL CALC LDL CHOL (test code = 2237) 166 MG/DL RISK RATIO LDL/HDL (test code = 4.61 RATIO 2238) LIPID [id number] 00:00:00 Test Item Value Reference Range Interpretation Comments CHOLESTEROL (test code = 2210) 262 MG/DL TRIGLYCERIDES (test code = 2232) 300 MG/DL HDL CHOLESTEROL (test code = 2220) 36 MG/DL CALC LDL CHOL (test code = 2237) 166 MG/DL RISK RATIO LDL/HDL (test code = 4.61 RATIO 2238) HEMOGLOBIN [id number] 00:00:00 Test Item Value Reference Range Interpretation Comments HEMOGLOBIN A1c (test code = 12638) 6.2 % HEMOGLOBIN [id number] 00:00:00 Test Item Value Reference Range Interpretation Comments HEMOGLOBIN A1c (test code = 69725) 6.2 % HEMOGLOBIN [id number] 00:00:00 Test Item Value Reference Range Interpretation Comments HEMOGLOBIN A1c (test code = 10035) 6.2 % [id number] 00:00:00 Test Item Value Reference Range Interpretation Comments TSH, THIRD GENERATION (test code 0.988 UIU/ML = 2821) [id number] 00:00:00 Test Item Value Reference Range Interpretation Comments TSH, THIRD GENERATION (test code 0.988 UIU/ML = 2821) [id number] 00:00:00 Test Item Value Reference Range Interpretation Comments TSH, THIRD GENERATION (test code 0.988 UIU/ML = 2821) BASIC METABOLIC [id number] 00:00:00 Test Item Value Reference Range Interpretation Comments GLUCOSE (test code = 2217) 135 MG/DL BUN (test code = 2208) 25 MG/DL CREATININE (test code = 2214) 0.76 MG/DL eGFR AMER. (test code 101 ML/MIN/1.73 = 45920) eGFR NON- AMER. (test 87 ML/MIN/1.73 code = 16706) SODIUM (test code = 2231) 139 MEQ/L POTASSIUM (test code = 2228) 4.7 MEQ/L CHLORIDE (test code = 2215) 99 MEQ/L CARBON DIOXIDE (test code = 26 MEQ/L 220) CALCIUM (test code = 2209) 9.4 MG/DL LIPID [id number] 00:00:00 Test Item Value Reference Range Interpretation Comments CHOLESTEROL (test code = 2210) 262 MG/DL TRIGLYCERIDES (test code = 2232) 300 MG/DL HDL CHOLESTEROL (test code = 2220) 36 MG/DL CALC LDL CHOL (test code = 2237) 166 MG/DL RISK RATIO LDL/HDL (test code = 4.61 RATIO 2238) HEMOGLOBIN [id number] 00:00:00 Test Item Value Reference Range Interpretation Comments HEMOGLOBIN A1c (test code = 11735) 6.2 % HEMOGLOBIN [id number] 00:00:00 Test Item Value Reference Range Interpretation Comments HEMOGLOBIN A1c (test code = 54355) 6.2 % [id number] 00:00:00 Test Item Value Reference Range Interpretation Comments TSH, THIRD GENERATION (test code 0.988 UIU/ML = 2821) [id number] 00:00:00 Test Item Value Reference Range Interpretation Comments TSH, THIRD GENERATION (test code 0.988 UIU/ML = 2821) BASIC METABOLIC [id number] 00:00:00 Test Item Value Reference Range Interpretation Comments GLUCOSE (test code = 2217) 135 MG/DL BUN (test code = 2208) 25 MG/DL CREATININE (test code = 2214) 0.76 MG/DL eGFR AMER. (test code 101 ML/MIN/1.73 = 28127) eGFR NON- AMER. (test 87 ML/MIN/1.73 code = 03464) SODIUM (test code = 2231) 139 MEQ/L POTASSIUM (test code = 2228) 4.7 MEQ/L CHLORIDE (test code = 2215) 99 MEQ/L CARBON DIOXIDE (test code = 26 MEQ/L 2206) CALCIUM (test code = 2209) 9.4 MG/DL BASIC METABOLIC [id number] 00:00:00 Test Item Value Reference Range Interpretation Comments GLUCOSE (test code = 2217) 135 MG/DL BUN (test code = 2208) 25 MG/DL CREATININE (test code = 2214) 0.76 MG/DL eGFR AMER. (test code 101 ML/MIN/1.73 = 79260) eGFR NON- AMER. (test 87 ML/MIN/1.73 code = 13796) SODIUM (test code = 2231) 139 MEQ/L POTASSIUM (test code = 2228) 4.7 MEQ/L CHLORIDE (test code = 2215) 99 MEQ/L CARBON DIOXIDE (test code = 26 MEQ/L 220) CALCIUM (test code = 2209) 9.4 MG/DL LIPID [id number] 00:00:00 Test Item Value Reference Range Interpretation Comments CHOLESTEROL (test code = 2210) 262 MG/DL TRIGLYCERIDES (test code = 2232) 300 MG/DL HDL CHOLESTEROL (test code = 2220) 36 MG/DL CALC LDL CHOL (test code = 2237) 166 MG/DL RISK RATIO LDL/HDL (test code = 4.61 RATIO 2238) LIPID [id number] 00:00:00 Test Item Value Reference Range Interpretation Comments CHOLESTEROL (test code = 2210) 262 MG/DL TRIGLYCERIDES (test code = 2232) 300 MG/DL HDL CHOLESTEROL (test code = 2220) 36 MG/DL CALC LDL CHOL (test code = 2237) 166 MG/DL RISK RATIO LDL/HDL (test code = 4.61 RATIO 2238) HEMOGLOBIN [id number] 00:00:00 Test Item Value Reference Range Interpretation Comments HEMOGLOBIN A1c (test code = 54620) 6.2 % HEMOGLOBIN [id number] 00:00:00 Test Item Value Reference Range Interpretation Comments HEMOGLOBIN A1c (test code = 04986) 6.2 % HEMOGLOBIN [id number] 00:00:00 Test Item Value Reference Range Interpretation Comments HEMOGLOBIN A1c (test code = 64313) 6.2 % [id number] 00:00:00 Test Item Value Reference Range Interpretation Comments TSH, THIRD GENERATION (test code 0.988 UIU/ML = 2821) [id number] 00:00:00 Test Item Value Reference Range Interpretation Comments TSH, THIRD GENERATION (test code 0.988 UIU/ML = 2821) [id number] 00:00:00 Test Item Value Reference Range Interpretation Comments TSH, THIRD GENERATION (test code 0.988 UIU/ML = 2821) COMPREHENSIVE METABOLIC [id number] 00:00:00 Test Item Value Reference Range Interpretation Comments GLUCOSE (test code = 2217) 109 MG/DL BUN (test code = 2208) 25 MG/DL CREATININE (test code = 2214) 0.78 MG/DL eGFR AMER. (test code 98 ML/MIN/1.73 = 89769) eGFR NON- AMER. (test 84 ML/MIN/1.73 code = 39826) CALC BUN/CREAT (test code = 32 RATIO [...] code = 2219) 25 U/L COMPREHENSIVE METABOLIC [id number] 00:00:00 Test Item Value Reference Range Interpretation Comments GLUCOSE (test code = 2217) 109 MG/DL BUN (test code = 2208) 25 MG/DL CREATININE (test code = 2214) 0.78 MG/DL eGFR AMER. (test code 98 ML/MIN/1.73 = 16462) eGFR NON- AMER. (test 84 ML/MIN/1.73 code = 32867) CALC BUN/CREAT (test code = 32 RATIO [...] (test code = 2219) 25 U/L LIPID [id number] 00:00:00 Test Item Value Reference Range Interpretation Comments CHOLESTEROL (test code = 2210) 295 MG/DL TRIGLYCERIDES (test code = 2232) 218 MG/DL HDL CHOLESTEROL (test code = 2220) 46 MG/DL CALC LDL CHOL (test code = 2237) 205 MG/DL RISK RATIO LDL/HDL (test code = 4.47 RATIO 2238) LIPID [id number] 00:00:00 Test Item Value Reference Range Interpretation Comments CHOLESTEROL (test code = 2210) 295 MG/DL TRIGLYCERIDES (test code = 2232) 218 MG/DL HDL CHOLESTEROL (test code = 2220) 46 MG/DL CALC LDL CHOL (test code = 2237) 205 MG/DL RISK RATIO LDL/HDL (test code = 4.47 RATIO 2238) HEMOGLOBIN [id number] 00:00:00 Test Item Value Reference Range Interpretation Comments HEMOGLOBIN A1c (test code = 98376) 7.0 % HEMOGLOBIN [id number] 00:00:00 Test Item Value Reference Range Interpretation Comments HEMOGLOBIN A1c (test code = 76481) 7.0 % HEMOGLOBIN [id number] 00:00:00 Test Item Value Reference Range Interpretation Comments HEMOGLOBIN A1c (test code = 34832) 7.0 % [id number] 00:00:00 Test Item Value Reference Range Interpretation Comments TSH, THIRD GENERATION (test code 0.565 UIU/ML = 2821) [id number] 00:00:00 Test Item Value Reference Range Interpretation Comments TSH, THIRD GENERATION (test code 0.565 UIU/ML = 2821) [id number] 00:00:00 Test Item Value Reference Range Interpretation Comments TSH, THIRD GENERATION (test code 0.565 UIU/ML = 2821) COMPREHENSIVE METABOLIC [id number] 00:00:00 Test Item Value Reference Range Interpretation Comments GLUCOSE (test code = 2217) 109 MG/DL BUN (test code = 2208) 25 MG/DL CREATININE (test code = 2214) 0.78 MG/DL eGFR AMER. (test code 98 ML/MIN/1.73 = 51297) eGFR NON- AMER. (test 84 ML/MIN/1.73 code = 82543) CALC BUN/CREAT (test code = 32 RATIO [...] code = 2219) 25 U/L COMPREHENSIVE METABOLIC [id number] 00:00:00 Test Item Value Reference Range Interpretation Comments GLUCOSE (test code = 2217) 109 MG/DL BUN (test code = 2208) 25 MG/DL CREATININE (test code = 2214) 0.78 MG/DL eGFR AMER. (test code 98 ML/MIN/1.73 = 80514) eGFR NON- AMER. (test 84 ML/MIN/1.73 code = 76001) CALC BUN/CREAT (test code = 32 RATIO [...] (test code = 2219) 25 U/L LIPID [id number] 00:00:00 Test Item Value Reference Range Interpretation Comments CHOLESTEROL (test code = 2210) 295 MG/DL TRIGLYCERIDES (test code = 2232) 218 MG/DL HDL CHOLESTEROL (test code = 2220) 46 MG/DL CALC LDL CHOL (test code = 2237) 205 MG/DL RISK RATIO LDL/HDL (test code = 4.47 RATIO 2238) LIPID [id number] 00:00:00 Test Item Value Reference Range Interpretation Comments CHOLESTEROL (test code = 2210) 295 MG/DL TRIGLYCERIDES (test code = 2232) 218 MG/DL HDL CHOLESTEROL (test code = 2220) 46 MG/DL CALC LDL CHOL (test code = 2237) 205 MG/DL RISK RATIO LDL/HDL (test code = 4.47 RATIO 2238) HEMOGLOBIN [id number] 00:00:00 Test Item Value Reference Range Interpretation Comments HEMOGLOBIN A1c (test code = 86103) 7.0 % HEMOGLOBIN [id number] 00:00:00 Test Item Value Reference Range Interpretation Comments HEMOGLOBIN A1c (test code = 07310) 7.0 % HEMOGLOBIN [id number] 00:00:00 Test Item Value Reference Range Interpretation Comments HEMOGLOBIN A1c (test code = 26943) 7.0 % [id number] 00:00:00 Test Item Value Reference Range Interpretation Comments TSH, THIRD GENERATION (test code 0.565 UIU/ML = 2821) [id number] 00:00:00 Test Item Value Reference Range Interpretation Comments TSH, THIRD GENERATION (test code 0.565 UIU/ML = 2821) [id number] 00:00:00 Test Item Value Reference Range Interpretation Comments TSH, THIRD GENERATION (test code 0.565 UIU/ML = 2821) COMPREHENSIVE METABOLIC [id number] 00:00:00 Test Item Value Reference Range Interpretation Comments GLUCOSE (test code = 2217) 109 MG/DL BUN (test code = 2208) 25 MG/DL CREATININE (test code = 2214) 0.78 MG/DL eGFR AMER. (test code 98 ML/MIN/1.73 = 02767) eGFR NON- AMER. (test 84 ML/MIN/1.73 code = 36403) CALC BUN/CREAT (test code = 32 RATIO [...] (test code = 2219) 25 U/L LIPID [id number] 00:00:00 Test Item Value Reference Range Interpretation Comments CHOLESTEROL (test code = 2210) 295 MG/DL TRIGLYCERIDES (test code = 2232) 218 MG/DL HDL CHOLESTEROL (test code = 2220) 46 MG/DL CALC LDL CHOL (test code = 2237) 205 MG/DL RISK RATIO LDL/HDL (test code = 4.47 RATIO 2238) HEMOGLOBIN [id number] 00:00:00 Test Item Value Reference Range Interpretation Comments HEMOGLOBIN A1c (test code = 45361) 7.0 % HEMOGLOBIN [id number] 00:00:00 Test Item Value Reference Range Interpretation Comments HEMOGLOBIN A1c (test code = 49844) 7.0 % [id number] 00:00:00 Test Item Value Reference Range Interpretation Comments TSH, THIRD GENERATION (test code 0.565 UIU/ML = 2821) [id number] 00:00:00 Test Item Value Reference Range Interpretation Comments TSH, THIRD GENERATION (test code 0.565 UIU/ML = 2821) COMPREHENSIVE METABOLIC [id number] 00:00:00 Test Item Value Reference Range Interpretation Comments GLUCOSE (test code = 2217) 109 MG/DL BUN (test code = 2208) 25 MG/DL CREATININE (test code = 2214) 0.78 MG/DL eGFR AMER. (test code 98 ML/MIN/1.73 = 33119) eGFR NON- AMER. (test 84 ML/MIN/1.73 code = 02593) CALC BUN/CREAT (test code = 32 RATIO [...] code = 2219) 25 U/L COMPREHENSIVE METABOLIC [id number] 00:00:00 Test Item Value Reference Range Interpretation Comments GLUCOSE (test code = 2217) 109 MG/DL BUN (test code = 2208) 25 MG/DL CREATININE (test code = 2214) 0.78 MG/DL eGFR AMER. (test code 98 ML/MIN/1.73 = 38667) eGFR NON- AMER. (test 84 ML/MIN/1.73 code = 52094) CALC BUN/CREAT (test code = 32 RATIO [...] (test code = 2219) 25 U/L LIPID [id number] 00:00:00 Test Item Value Reference Range Interpretation Comments CHOLESTEROL (test code = 2210) 295 MG/DL TRIGLYCERIDES (test code = 2232) 218 MG/DL HDL CHOLESTEROL (test code = 2220) 46 MG/DL CALC LDL CHOL (test code = 2237) 205 MG/DL RISK RATIO LDL/HDL (test code = 4.47 RATIO 2238) LIPID [id number] 00:00:00 Test Item Value Reference Range Interpretation Comments CHOLESTEROL (test code = 2210) 295 MG/DL TRIGLYCERIDES (test code = 2232) 218 MG/DL HDL CHOLESTEROL (test code = 2220) 46 MG/DL CALC LDL CHOL (test code = 2237) 205 MG/DL RISK RATIO LDL/HDL (test code = 4.47 RATIO 2238) HEMOGLOBIN [id number] 00:00:00 Test Item Value Reference Range Interpretation Comments HEMOGLOBIN A1c (test code = 05604) 7.0 % HEMOGLOBIN [id number] 00:00:00 Test Item Value Reference Range Interpretation Comments HEMOGLOBIN A1c (test code = 27271) 7.0 % HEMOGLOBIN [id number] 00:00:00 Test Item Value Reference Range Interpretation Comments HEMOGLOBIN A1c (test code = 81869) 7.0 % [id number] 00:00:00 Test Item Value Reference Range Interpretation Comments TSH, THIRD GENERATION (test code 0.565 UIU/ML = 2821) [id number] 00:00:00 Test Item Value Reference Range Interpretation Comments TSH, THIRD GENERATION (test code 0.565 UIU/ML = 2821) [id number] 00:00:00 Test Item Value Reference Range Interpretation Comments TSH, THIRD GENERATION (test code 0.565 UIU/ML = 2821) [id number] 00:00:00 Test Item Value Reference Range Interpretation Comments TSH, THIRD GENERATION (test code 0.379 UIU/ML = 2821) [id number] 00:00:00 Test Item Value Reference Range Interpretation Comments TSH, THIRD GENERATION (test code 0.379 UIU/ML = 2821) [id number] 00:00:00 Test Item Value Reference Range Interpretation Comments TSH, THIRD GENERATION (test code 0.379 UIU/ML = 2821) [id number] 00:00:00 Test Item Value Reference Range Interpretation Comments TSH, THIRD GENERATION (test code 0.379 UIU/ML = 2821) [id number] 00:00:00 Test Item Value Reference Range Interpretation Comments TSH, THIRD GENERATION (test code 0.379 UIU/ML = 2821) [id number] 00:00:00 Test Item Value Reference Range Interpretation Comments TSH, THIRD GENERATION (test code 0.379 UIU/ML = 2821) [id number] 00:00:00 Test Item Value Reference Range Interpretation Comments TSH, THIRD GENERATION (test code 0.379 UIU/ML = 2821) [id number] 00:00:00 Test Item Value Reference Range Interpretation Comments TSH, THIRD GENERATION (test code 0.379 UIU/ML = 2821) [id number] 00:00:00 Test Item Value Reference Range Interpretation Comments TSH, THIRD GENERATION (test code 0.379 UIU/ML = 2821) [id number] 00:00:00 Test Item Value Reference Range Interpretation Comments TSH, THIRD GENERATION (test code 0.379 UIU/ML = 2821) [id number] 00:00:00 Test Item Value Reference Range Interpretation Comments TSH, THIRD GENERATION (test code 0.379 UIU/ML = 2821) CULTURE, [id number] 00:00:00 Test Item Value Reference Range Interpretation Comments CULTURE, URINE (test SPECIMEN NUMBER: code = 78357) [id number] CULTURE, [id number] 00:00:00 Test Item Value Reference Range Interpretation Comments CULTURE, URINE (test SPECIMEN NUMBER: code = 80934) [id number] CULTURE, [id number] 00:00:00 Test Item Value Reference Range Interpretation Comments CULTURE, URINE (test SPECIMEN NUMBER: code = 45365) [id number] CULTURE, [id number] 00:00:00 Test Item Value Reference Range Interpretation Comments CULTURE, URINE (test SPECIMEN NUMBER: code = 68104) [id number] CULTURE, [id number] 00:00:00 Test Item Value Reference Range Interpretation Comments CULTURE, URINE (test SPECIMEN NUMBER: code = 09845) [id number] CULTURE, [id number] 00:00:00 Test Item Value Reference Range Interpretation Comments CULTURE, URINE (test SPECIMEN NUMBER: code = 67880) [id number] CULTURE, [id number] 00:00:00 Test Item Value Reference Range Interpretation Comments CULTURE, URINE (test SPECIMEN NUMBER: code = 34485) [id number] COMPREHENSIVE METABOLIC [id number] 00:00:00 Test Item Value Reference Range Interpretation Comments GLUCOSE (test code = 2217) 128 MG/DL BUN (test code = 2208) 26 MG/DL CREATININE (test code = 2214) 0.92 MG/DL eGFR AMER. (test code 81 ML/MIN/1.73 = 55138) eGFR NON- AMER. (test 70 ML/MIN/1.73 code = 77076) CALC BUN/CREAT (test code = 28 RATIO [...] code = 2219) 29 U/L COMPREHENSIVE METABOLIC [id number] 00:00:00 Test Item Value Reference Range Interpretation Comments GLUCOSE (test code = 2217) 128 MG/DL BUN (test code = 2208) 26 MG/DL CREATININE (test code = 2214) 0.92 MG/DL eGFR AMER. (test code 81 ML/MIN/1.73 = 54831) eGFR NON- AMER. (test 70 ML/MIN/1.73 code = 81568) CALC BUN/CREAT (test code = 28 RATIO [...] code = 2219) 29 U/L ACUTE HEPATITIS [id number] 00:00:00 Test Item Value Reference Range Interpretation Comments HEPATITIS A IgM (test code = NON-REACTIVE 25871) HEPATITIS B CORE IgM (test code NON-REACTIVE = 4644) HEPATITIS B SURF AG (test code = NON-REACTIVE 2739) HEPATITIS C ANTIBODY (test code NON-REACTIVE = 4675) INTERPRETATION HEPATITIS A: (NOTE) (test code = 2552) INTERPRETATION HEPATITIS B: (NOTE) (test code = 02505) INTERPRETATION HEPATITIS C: (NOTE) (test code = 70978) ACUTE HEPATITIS [id number] 00:00:00 Test Item Value Reference Range Interpretation Comments HEPATITIS A IgM (test code = NON-REACTIVE 97112) HEPATITIS B CORE IgM (test code NON-REACTIVE = 4644) HEPATITIS B SURF AG (test code = NON-REACTIVE 2739) HEPATITIS C ANTIBODY (test code NON-REACTIVE = 4675) INTERPRETATION HEPATITIS A: (NOTE) (test code = 2552) INTERPRETATION HEPATITIS B: (NOTE) (test code = 67305) INTERPRETATION HEPATITIS C: (NOTE) (test code = 83252) [id number] 00:00:00 Test Item Value Reference Range Interpretation Comments AMYLASE (test code = 2205) 32 U/L [id number] 00:00:00 Test Item Value Reference Range Interpretation Comments AMYLASE (test code = 2205) 32 U/L [id number] 00:00:00 Test Item Value Reference Range Interpretation Comments LIPASE (test code = 2057) 22 U/L [id number] 00:00:00 Test Item Value Reference Range Interpretation Comments LIPASE (test code = 2057) 22 U/L [id number] 00:00:00 Test Item Value Reference Range Interpretation Comments LIPASE (test code = 2057) 22 U/L COMPREHENSIVE METABOLIC [id number] 00:00:00 Test Item Value Reference Range Interpretation Comments GLUCOSE (test code = 2217) 128 MG/DL BUN (test code = 2208) 26 MG/DL CREATININE (test code = 2214) 0.92 MG/DL eGFR AMER. (test code 81 ML/MIN/1.73 = 35352) eGFR NON- AMER. (test 70 ML/MIN/1.73 code = 87295) CALC BUN/CREAT (test code = 28 RATIO [...] code = 2219) 29 U/L COMPREHENSIVE METABOLIC [id number] 00:00:00 Test Item Value Reference Range Interpretation Comments GLUCOSE (test code = 2217) 128 MG/DL BUN (test code = 2208) 26 MG/DL CREATININE (test code = 2214) 0.92 MG/DL eGFR AMER. (test code 81 ML/MIN/1.73 = 13109) eGFR NON- AMER. (test 70 ML/MIN/1.73 code = 78992) CALC BUN/CREAT (test code = 28 RATIO [...] code = 2219) 29 U/L ACUTE HEPATITIS [id number] 00:00:00 Test Item Value Reference Range Interpretation Comments HEPATITIS A IgM (test code = NON-REACTIVE 23920) HEPATITIS B CORE IgM (test code NON-REACTIVE = 4644) HEPATITIS B SURF AG (test code = NON-REACTIVE 2739) HEPATITIS C ANTIBODY (test code NON-REACTIVE = 4675) INTERPRETATION HEPATITIS A: (NOTE) (test code = 2552) INTERPRETATION HEPATITIS B: (NOTE) (test code = 90355) INTERPRETATION HEPATITIS C: (NOTE) (test code = 99824) ACUTE HEPATITIS [id number] 00:00:00 Test Item Value Reference Range Interpretation Comments HEPATITIS A IgM (test code = NON-REACTIVE 82860) HEPATITIS B CORE IgM (test code NON-REACTIVE = 4644) HEPATITIS B SURF AG (test code = NON-REACTIVE 2739) HEPATITIS C ANTIBODY (test code NON-REACTIVE = 4675) INTERPRETATION HEPATITIS A: (NOTE) (test code = 2552) INTERPRETATION HEPATITIS B: (NOTE) (test code = 58524) INTERPRETATION HEPATITIS C: (NOTE) (test code = 65411) [id number] 00:00:00 Test Item Value Reference Range Interpretation Comments AMYLASE (test code = 2205) 32 U/L [id number] 00:00:00 Test Item Value Reference Range Interpretation Comments AMYLASE (test code = 2205) 32 U/L [id number] 00:00:00 Test Item Value Reference Range Interpretation Comments LIPASE (test code = 2057) 22 U/L [id number] 00:00:00 Test Item Value Reference Range Interpretation Comments LIPASE (test code = 2057) 22 U/L [id number] 00:00:00 Test Item Value Reference Range Interpretation Comments LIPASE (test code = 2057) 22 U/L COMPREHENSIVE METABOLIC [id number] 00:00:00 Test Item Value Reference Range Interpretation Comments GLUCOSE (test code = 2217) 128 MG/DL BUN (test code = 2208) 26 MG/DL CREATININE (test code = 2214) 0.92 MG/DL eGFR AMER. (test code 81 ML/MIN/1.73 = 68731) eGFR NON- AMER. (test 70 ML/MIN/1.73 code = 35466) CALC BUN/CREAT (test code = 28 RATIO [...] code = 2219) 29 U/L ACUTE HEPATITIS [id number] 00:00:00 Test Item Value Reference Range Interpretation Comments HEPATITIS A IgM (test code = NON-REACTIVE 78809) HEPATITIS B CORE IgM (test code NON-REACTIVE = 4644) HEPATITIS B SURF AG (test code = NON-REACTIVE 5640) HEPATITIS C ANTIBODY (test code NON-REACTIVE = 0524) INTERPRETATION HEPATITIS A: (NOTE) (test code = 2552) INTERPRETATION HEPATITIS B: (NOTE) (test code = 74400) INTERPRETATION HEPATITIS C: (NOTE) (test code = 66413) [id number] 00:00:00 Test Item Value Reference Range Interpretation Comments AMYLASE (test code = 5) 32 U/L [id number] 00:00:00 Test Item Value Reference Range Interpretation Comments LIPASE (test code = 2057) 22 U/L [id number] 00:00:00 Test Item Value Reference Range Interpretation Comments LIPASE (test code = 2057) 22 U/L COMPREHENSIVE METABOLIC [id number] 00:00:00 Test Item Value Reference Range Interpretation Comments GLUCOSE (test code = 2217) 128 MG/DL BUN (test code = 2208) 26 MG/DL CREATININE (test code = 2214) 0.92 MG/DL eGFR AMER. (test code 81 ML/MIN/1.73 = 50570) eGFR NON- AMER. (test 70 ML/MIN/1.73 code = 92052) CALC BUN/CREAT (test code = 28 RATIO [...] code = 2219) 29 U/L COMPREHENSIVE METABOLIC [id number] 00:00:00 Test Item Value Reference Range Interpretation Comments GLUCOSE (test code = 2217) 128 MG/DL BUN (test code = 2208) 26 MG/DL CREATININE (test code = 2214) 0.92 MG/DL eGFR AMER. (test code 81 ML/MIN/1.73 = 75011) eGFR NON- AMER. (test 70 ML/MIN/1.73 code = 27945) CALC BUN/CREAT (test code = 28 RATIO [...] code = 2219) 29 U/L ACUTE HEPATITIS [id number] 00:00:00 Test Item Value Reference Range Interpretation Comments HEPATITIS A IgM (test code = NON-REACTIVE 40401) HEPATITIS B CORE IgM (test code NON-REACTIVE = 4644) HEPATITIS B SURF AG (test code = NON-REACTIVE 2739) HEPATITIS C ANTIBODY (test code NON-REACTIVE = 4675) INTERPRETATION HEPATITIS A: (NOTE) (test code = 2552) INTERPRETATION HEPATITIS B: (NOTE) (test code = 96501) INTERPRETATION HEPATITIS C: (NOTE) (test code = 21706) ACUTE HEPATITIS [id number] 00:00:00 Test Item Value Reference Range Interpretation Comments HEPATITIS A IgM (test code = NON-REACTIVE 71897) HEPATITIS B CORE IgM (test code NON-REACTIVE = 4644) HEPATITIS B SURF AG (test code = NON-REACTIVE 2739) HEPATITIS C ANTIBODY (test code NON-REACTIVE = 4675) INTERPRETATION HEPATITIS A: (NOTE) (test code = 2552) INTERPRETATION HEPATITIS B: (NOTE) (test code = 33675) INTERPRETATION HEPATITIS C: (NOTE) (test code = 02520) [id number] 00:00:00 Test Item Value Reference Range Interpretation Comments AMYLASE (test code = 2205) 32 U/L [id number] 00:00:00 Test Item Value Reference Range Interpretation Comments AMYLASE (test code = 2205) 32 U/L [id number] 00:00:00 Test Item Value Reference Range Interpretation Comments LIPASE (test code = 2058) 22 U/L [id number] 00:00:00 Test Item Value Reference Range Interpretation Comments LIPASE (test code = 205) 22 U/L [id number] 00:00:00 Test Item Value Reference Range Interpretation Comments LIPASE (test code = 2058) 22 U/L [id number] 00:00:00 Test Item Value Reference Range Interpretation Comments TSH, THIRD GENERATION (test code 4.890 UIU/ML = 2821) [id number] 00:00:00 Test Item Value Reference Range Interpretation Comments TSH, THIRD GENERATION (test code 4.890 UIU/ML = 2821) [id number] 00:00:00 Test Item Value Reference Range Interpretation Comments TSH, THIRD GENERATION (test code 4.890 UIU/ML = 2821) COMPREHENSIVE METABOLIC [id number] 00:00:00 Test Item Value Reference Range Interpretation Comments GLUCOSE (test code = 2217) 121 MG/DL BUN (test code = 2208) 40 MG/DL CREATININE (test code = 2214) 1.48 MG/DL eGFR AMER. (test code 45 ML/MIN/1.73 = 97493) eGFR NON- AMER. (test 39 ML/MIN/1.73 code = 43599) CALC BUN/CREAT (test code = 27 RATIO [...] code = 2219) 20 U/L COMPREHENSIVE METABOLIC [id number] 00:00:00 Test Item Value Reference Range Interpretation Comments GLUCOSE (test code = 2217) 121 MG/DL BUN (test code = 2208) 40 MG/DL CREATININE (test code = 2214) 1.48 MG/DL eGFR AMER. (test code 45 ML/MIN/1.73 = 75254) eGFR NON- AMER. (test 39 ML/MIN/1.73 code = 89405) CALC BUN/CREAT (test code = 27 RATIO [...] ALT (test code = 2219) 20 U/L [id number] 00:00:00 Test Item Value Reference Range Interpretation Comments TSH, THIRD GENERATION (test code 4.890 UIU/ML = 2821) [id number] 00:00:00 Test Item Value Reference Range Interpretation Comments TSH, THIRD GENERATION (test code 4.890 UIU/ML = 2821) [id number] 00:00:00 Test Item Value Reference Range Interpretation Comments TSH, THIRD GENERATION (test code 4.890 UIU/ML = 2821) COMPREHENSIVE METABOLIC [id number] 00:00:00 Test Item Value Reference Range Interpretation Comments GLUCOSE (test code = 2217) 121 MG/DL BUN (test code = 2208) 40 MG/DL CREATININE (test code = 2214) 1.48 MG/DL eGFR AMER. (test code 45 ML/MIN/1.73 = 73561) eGFR NON- AMER. (test 39 ML/MIN/1.73 code = 84757) CALC BUN/CREAT (test code = 27 RATIO [...] code = 2219) 20 U/L COMPREHENSIVE METABOLIC [id number] 00:00:00 Test Item Value Reference Range Interpretation Comments GLUCOSE (test code = 2217) 121 MG/DL BUN (test code = 2208) 40 MG/DL CREATININE (test code = 2214) 1.48 MG/DL eGFR AMER. (test code 45 ML/MIN/1.73 = 81699) eGFR NON- AMER. (test 39 ML/MIN/1.73 code = 85122) CALC BUN/CREAT (test code = 27 RATIO [...] ALT (test code = 2219) 20 U/L [id number] 00:00:00 Test Item Value Reference Range Interpretation Comments TSH, THIRD GENERATION (test code 4.890 UIU/ML = 2821) [id number] 00:00:00 Test Item Value Reference Range Interpretation Comments TSH, THIRD GENERATION (test code 4.890 UIU/ML = 2821) COMPREHENSIVE METABOLIC [id number] 00:00:00 Test Item Value Reference Range Interpretation Comments GLUCOSE (test code = 2217) 121 MG/DL BUN (test code = 2208) 40 MG/DL CREATININE (test code = 2214) 1.48 MG/DL eGFR AMER. (test code 45 ML/MIN/1.73 = 03924) eGFR NON- AMER. (test 39 ML/MIN/1.73 code = 32984) CALC BUN/CREAT (test code = 27 RATIO [...] ALT (test code = 2219) 20 U/L [id number] 00:00:00 Test Item Value Reference Range Interpretation Comments TSH, THIRD GENERATION (test code 4.890 UIU/ML = 2821) [id number] 00:00:00 Test Item Value Reference Range Interpretation Comments TSH, THIRD GENERATION (test code 4.890 UIU/ML = 2821) [id number] 00:00:00 Test Item Value Reference Range Interpretation Comments TSH, THIRD GENERATION (test code 4.890 UIU/ML = 2821) COMPREHENSIVE METABOLIC [id number] 00:00:00 Test Item Value Reference Range Interpretation Comments GLUCOSE (test code = 2217) 121 MG/DL BUN (test code = 2208) 40 MG/DL CREATININE (test code = 2214) 1.48 MG/DL eGFR AMER. (test code 45 ML/MIN/1.73 = 19248) eGFR NON- AMER. (test 39 ML/MIN/1.73 code = 07794) CALC BUN/CREAT (test code = 27 RATIO [...] code = 2219) 20 U/L COMPREHENSIVE METABOLIC [id number] 00:00:00 Test Item Value Reference Range Interpretation Comments GLUCOSE (test code = 2217) 121 MG/DL BUN (test code = 2208) 40 MG/DL CREATININE (test code = 2214) 1.48 MG/DL eGFR AMER. (test code 45 ML/MIN/1.73 = 29360) eGFR NON- AMER. (test 39 ML/MIN/1.73 code = 04559) CALC BUN/CREAT (test code = 27 RATIO [...] (test code = 2219) 20 U/L LIPID [id number] 00:00:00 Test Item Value Reference Range Interpretation Comments CHOLESTEROL (test code = 2210) 261 MG/DL TRIGLYCERIDES (test code = 2232) 165 MG/DL HDL CHOLESTEROL (test code = 2220) 58 MG/DL CALC LDL CHOL (test code = 2237) 170 MG/DL RISK RATIO LDL/HDL (test code = 2.93 RATIO 2238) LIPID [id number] 00:00:00 Test Item Value Reference Range Interpretation Comments CHOLESTEROL (test code = 2210) 261 MG/DL TRIGLYCERIDES (test code = 2232) 165 MG/DL HDL CHOLESTEROL (test code = 2220) 58 MG/DL CALC LDL CHOL (test code = 2237) 170 MG/DL RISK RATIO LDL/HDL (test code = 2.93 RATIO 2238) CBC W/AUTO [id number] 00:00:00 Test Item Value Reference Range Interpretation [...] code = 1015) 378 K/UL CBC W/AUTO [id number] 00:00:00 Test Item Value Reference Range Interpretation [...] code = 1015) 378 K/UL CBC W/AUTO [id number] 00:00:00 Test Item Value Reference Range Interpretation [...] (test code = 1015) 378 K/UL HEMOGLOBIN [id number] 00:00:00 Test Item Value Reference Range Interpretation Comments HEMOGLOBIN A1c (test code = 23334) 6.4 % HEMOGLOBIN [id number] 00:00:00 Test Item Value Reference Range Interpretation Comments HEMOGLOBIN A1c (test code = 03085) 6.4 % HEMOGLOBIN [id number] 00:00:00 Test Item Value Reference Range Interpretation Comments HEMOGLOBIN A1c (test code = 48629) 6.4 % [id number] 00:00:00 Test Item Value Reference Range Interpretation Comments TSH (test code = 2821) 5.290 UIU/ML [id number] 00:00:00 Test Item Value Reference Range Interpretation Comments TSH (test code = 2821) 5.290 UIU/ML [id number] 00:00:00 Test Item Value Reference Range Interpretation Comments TSH (test code = 2821) 5.290 UIU/ML LIPID [id number] 00:00:00 Test Item Value Reference Range Interpretation Comments CHOLESTEROL (test code = 2210) 261 MG/DL TRIGLYCERIDES (test code = 2232) 165 MG/DL HDL CHOLESTEROL (test code = 2220) 58 MG/DL CALC LDL CHOL (test code = 2237) 170 MG/DL RISK RATIO LDL/HDL (test code = 2.93 RATIO 2238) LIPID [id number] 00:00:00 Test Item Value Reference Range Interpretation Comments CHOLESTEROL (test code = 2210) 261 MG/DL TRIGLYCERIDES (test code = 2232) 165 MG/DL HDL CHOLESTEROL (test code = 2220) 58 MG/DL CALC LDL CHOL (test code = 2237) 170 MG/DL RISK RATIO LDL/HDL (test code = 2.93 RATIO 2238) CBC W/AUTO [id number] 00:00:00 Test Item Value Reference Range Interpretation [...] code = 1015) 378 K/UL CBC W/AUTO [id number] 00:00:00 Test Item Value Reference Range Interpretation [...] code = 1015) 378 K/UL CBC W/AUTO [id number] 00:00:00 Test Item Value Reference Range Interpretation [...] (test code = 1015) 378 K/UL HEMOGLOBIN [id number] 00:00:00 Test Item Value Reference Range Interpretation Comments HEMOGLOBIN A1c (test code = 50316) 6.4 % HEMOGLOBIN [id number] 00:00:00 Test Item Value Reference Range Interpretation Comments HEMOGLOBIN A1c (test code = 48254) 6.4 % HEMOGLOBIN [id number] 00:00:00 Test Item Value Reference Range Interpretation Comments HEMOGLOBIN A1c (test code = 25973) 6.4 % [id number] 00:00:00 Test Item Value Reference Range Interpretation Comments TSH (test code = 2821) 5.290 UIU/ML [id number] 00:00:00 Test Item Value Reference Range Interpretation Comments TSH (test code = 2821) 5.290 UIU/ML [id number] 00:00:00 Test Item Value Reference Range Interpretation Comments TSH (test code = 2821) 5.290 UIU/ML LIPID [id number] 00:00:00 Test Item Value Reference Range Interpretation Comments CHOLESTEROL (test code = 2210) 261 MG/DL TRIGLYCERIDES (test code = 2232) 165 MG/DL HDL CHOLESTEROL (test code = 2220) 58 MG/DL CALC LDL CHOL (test code = 2237) 170 MG/DL RISK RATIO LDL/HDL (test code = 2.93 RATIO 2238) CBC W/AUTO [id number] 00:00:00 Test Item Value Reference Range Interpretation [...] code = 1015) 378 K/UL CBC W/AUTO [id number] 00:00:00 Test Item Value Reference Range Interpretation [...] (test code = 1015) 378 K/UL HEMOGLOBIN [id number] 00:00:00 Test Item Value Reference Range Interpretation Comments HEMOGLOBIN A1c (test code = 75798) 6.4 % HEMOGLOBIN [id number] 00:00:00 Test Item Value Reference Range Interpretation Comments HEMOGLOBIN A1c (test code = 53900) 6.4 % [id number] 00:00:00 Test Item Value Reference Range Interpretation Comments TSH (test code = 2821) 5.290 UIU/ML [id number] 00:00:00 Test Item Value Reference Range Interpretation Comments TSH (test code = 2821) 5.290 UIU/ML LIPID [id number] 00:00:00 Test Item Value Reference Range Interpretation Comments CHOLESTEROL (test code = 2210) 261 MG/DL TRIGLYCERIDES (test code = 2232) 165 MG/DL HDL CHOLESTEROL (test code = 2220) 58 MG/DL CALC LDL CHOL (test code = 2237) 170 MG/DL RISK RATIO LDL/HDL (test code = 2.93 RATIO 2238) LIPID [id number] 00:00:00 Test Item Value Reference Range Interpretation Comments CHOLESTEROL (test code = 2210) 261 MG/DL TRIGLYCERIDES (test code = 2232) 165 MG/DL HDL CHOLESTEROL (test code = 2220) 58 MG/DL CALC LDL CHOL (test code = 2237) 170 MG/DL RISK RATIO LDL/HDL (test code = 2.93 RATIO 2238) CBC W/AUTO [id number] 00:00:00 Test Item Value Reference Range Interpretation [...] code = 1015) 378 K/UL CBC W/AUTO [id number] 00:00:00 Test Item Value Reference Range Interpretation [...] code = 1015) 378 K/UL CBC W/AUTO [id number] 00:00:00 Test Item Value Reference Range Interpretation [...] (test code = 1015) 378 K/UL HEMOGLOBIN [id number] 00:00:00 Test Item Value Reference Range Interpretation Comments HEMOGLOBIN A1c (test code = 78524) 6.4 % HEMOGLOBIN [id number] 00:00:00 Test Item Value Reference Range Interpretation Comments HEMOGLOBIN A1c (test code = 26585) 6.4 % HEMOGLOBIN [id number] 00:00:00 Test Item Value Reference Range Interpretation Comments HEMOGLOBIN A1c (test code = 55769) 6.4 % [id number] 00:00:00 Test Item Value Reference Range Interpretation Comments TSH (test code = 2821) 5.290 UIU/ML [id number] 00:00:00 Test Item Value Reference Range Interpretation Comments TSH (test code = 2821) 5.290 UIU/ML [id number] 00:00:00 Test Item Value Reference Range Interpretation [...] code = 2821) 1.030 UIU/ML COMPREHENSIVE METABOLIC [id number] 00:00:00 Test Item Value Reference Range Interpretation Comments GLUCOSE (test code = 2217) 106 MG/DL BUN (test code = 2208) 23 MG/DL CREATININE (test code = 2214) 0.66 MG/DL eGFR AMER. (test code 114 ML/MIN/1.73 = 71109) eGFR NON- AMER. (test 99 ML/MIN/1.73 code = 26629) CALC BUN/CREAT (test code = 35 RATIO [...] code = 2219) 31 U/L COMPREHENSIVE METABOLIC [id number] 00:00:00 Test Item Value Reference Range Interpretation Comments GLUCOSE (test code = 2217) 106 MG/DL BUN (test code = 2208) 23 MG/DL CREATININE (test code = 2214) 0.66 MG/DL eGFR AMER. (test code 114 ML/MIN/1.73 = 52940) eGFR NON- AMER. (test 99 ML/MIN/1.73 code = 25378) CALC BUN/CREAT (test code = 35 RATIO [...] code = 2821) 0.335 UIU/ML COMPREHENSIVE METABOLIC [id number] 00:00:00 Test Item Value Reference Range Interpretation Comments GLUCOSE (test code = 2217) 106 MG/DL BUN (test code = 2208) 23 MG/DL CREATININE (test code = 2214) 0.66 MG/DL eGFR AMER. (test code 114 ML/MIN/1.73 = 36862) eGFR NON- AMER. (test 99 ML/MIN/1.73 code = 73683) CALC BUN/CREAT (test code = 35 RATIO [...] code = 2219) 31 U/L COMPREHENSIVE METABOLIC [id number] 00:00:00 Test Item Value Reference Range Interpretation Comments GLUCOSE (test code = 2217) 106 MG/DL BUN (test code = 2208) 23 MG/DL CREATININE (test code = 2214) 0.66 MG/DL eGFR AMER. (test code 114 ML/MIN/1.73 = 02131) eGFR NON- AMER. (test 99 ML/MIN/1.73 code = 16534) CALC BUN/CREAT (test code = 35 RATIO [...] code = 2821) 0.335 UIU/ML COMPREHENSIVE METABOLIC [id number] 00:00:00 Test Item Value Reference Range Interpretation Comments GLUCOSE (test code = 2217) 106 MG/DL BUN (test code = 2208) 23 MG/DL CREATININE (test code = 2214) 0.66 MG/DL eGFR AMER. (test code 114 ML/MIN/1.73 = 24825) eGFR NON- AMER. (test 99 ML/MIN/1.73 code = 00976) CALC BUN/CREAT (test code = 35 RATIO [...] code = 2821) 0.335 UIU/ML COMPREHENSIVE METABOLIC [id number] 00:00:00 Test Item Value Reference Range Interpretation Comments GLUCOSE (test code = 2217) 106 MG/DL BUN (test code = 2208) 23 MG/DL CREATININE (test code = 2214) 0.66 MG/DL eGFR AMER. (test code 114 ML/MIN/1.73 = 20043) eGFR NON- AMER. (test 99 ML/MIN/1.73 code = 60898) CALC BUN/CREAT (test code = 35 RATIO [...] code = 2219) 31 U/L COMPREHENSIVE METABOLIC [id number] 00:00:00 Test Item Value Reference Range Interpretation Comments GLUCOSE (test code = 2217) 106 MG/DL BUN (test code = 2208) 23 MG/DL CREATININE (test code = 2214) 0.66 MG/DL eGFR AMER. (test code 114 ML/MIN/1.73 = 65970) eGFR NON- AMER. (test 99 ML/MIN/1.73 code = 30355) CALC BUN/CREAT (test code = 35 RATIO [...] code = 2821) 0.335 UIU/ML COMPREHENSIVE METABOLIC [id number] 00:00:00 Test Item Value Reference Range Interpretation Comments GLUCOSE (test code = 2217) 103 MG/DL BUN (test code = 2208) 15 MG/DL CREATININE (test code = 2214) 0.77 MG/DL eGFR AMER. (test code 101 ML/MIN/1.73 = 35737) eGFR NON- AMER. (test 87 ML/MIN/1.73 code = 28031) CALC BUN/CREAT (test code = 19 RATIO [...] code = 2219) 24 U/L COMPREHENSIVE METABOLIC [id number] 00:00:00 Test Item Value Reference Range Interpretation Comments GLUCOSE (test code = 2217) 103 MG/DL BUN (test code = 2208) 15 MG/DL CREATININE (test code = 2214) 0.77 MG/DL eGFR AMER. (test code 101 ML/MIN/1.73 = 02034) eGFR NON- AMER. (test 87 ML/MIN/1.73 code = 94759) CALC BUN/CREAT (test code = 19 RATIO [...] code = 2821) 0.424 UIU/ML COMPREHENSIVE METABOLIC [id number] 00:00:00 Test Item Value Reference Range Interpretation Comments GLUCOSE (test code = 2217) 103 MG/DL BUN (test code = 2208) 15 MG/DL CREATININE (test code = 2214) 0.77 MG/DL eGFR AMER. (test code 101 ML/MIN/1.73 = 98467) eGFR NON- AMER. (test 87 ML/MIN/1.73 code = 10854) CALC BUN/CREAT (test code = 19 RATIO [...] code = 2219) 24 U/L COMPREHENSIVE METABOLIC [id number] 00:00:00 Test Item Value Reference Range Interpretation Comments GLUCOSE (test code = 2217) 103 MG/DL BUN (test code = 2208) 15 MG/DL CREATININE (test code = 2214) 0.77 MG/DL eGFR AMER. (test code 101 ML/MIN/1.73 = 72089) eGFR NON- AMER. (test 87 ML/MIN/1.73 code = 72928) CALC BUN/CREAT (test code = 19 RATIO [...] code = 2821) 0.424 UIU/ML COMPREHENSIVE METABOLIC [id number] 00:00:00 Test Item Value Reference Range Interpretation Comments GLUCOSE (test code = 2217) 103 MG/DL BUN (test code = 2208) 15 MG/DL CREATININE (test code = 2214) 0.77 MG/DL eGFR AMER. (test code 101 ML/MIN/1.73 = 27034) eGFR NON- AMER. (test 87 ML/MIN/1.73 code = 92747) CALC BUN/CREAT (test code = 19 RATIO [...] code = 2821) 0.424 UIU/ML COMPREHENSIVE METABOLIC [id number] 00:00:00 Test Item Value Reference Range Interpretation Comments GLUCOSE (test code = 2217) 103 MG/DL BUN (test code = 2208) 15 MG/DL CREATININE (test code = 2214) 0.77 MG/DL eGFR AMER. (test code 101 ML/MIN/1.73 = 03294) eGFR NON- AMER. (test 87 ML/MIN/1.73 code = 73519) CALC BUN/CREAT (test code = 19 RATIO [...] code = 2219) 24 U/L COMPREHENSIVE METABOLIC [id number] 00:00:00 Test Item Value Reference Range Interpretation Comments GLUCOSE (test code = 2217) 103 MG/DL BUN (test code = 2208) 15 MG/DL CREATININE (test code = 2214) 0.77 MG/DL eGFR AMER. (test code 101 ML/MIN/1.73 = 30139) eGFR NON- AMER. (test 87 ML/MIN/1.73 code = 79482) CALC BUN/CREAT (test code = 19 RATIO [...] (test code = 2821) 0.424 UIU/ML CULTURE, [id number] 00:00:00 Test Item Value Reference Range Interpretation Comments CULTURE, URINE (test SPECIMEN NUMBER: code = 86269) [id number] CULTURE, [id number] 00:00:00 Test Item Value Reference Range Interpretation Comments CULTURE, URINE (test SPECIMEN NUMBER: code = 25225) [id number] CULTURE, [id number] 00:00:00 Test Item Value Reference Range Interpretation Comments CULTURE, URINE (test SPECIMEN NUMBER: code = 75561) [id number] CULTURE, [id number] 00:00:00 Test Item Value Reference Range Interpretation Comments CULTURE, URINE (test SPECIMEN NUMBER: code = 56890) [id number] CULTURE, [id number] 00:00:00 Test Item Value Reference Range Interpretation Comments CULTURE, URINE (test SPECIMEN NUMBER: code = 09602) [id number] CULTURE, [id number] 00:00:00 Test Item Value Reference Range Interpretation Comments CULTURE, URINE (test SPECIMEN NUMBER: code = 52055) [id number] CULTURE, [id number] 00:00:00 Test Item Value Reference Range Interpretation Comments CULTURE, URINE (test SPECIMEN NUMBER: code = 22283) [id number] CULTURE, [id number] 00:00:00 Test Item Value Reference Range Interpretation Comments CULTURE, URINE (test SPECIMEN NUMBER: code = 59931) [id number] CULTURE, [id number] 00:00:00 Test Item Value Reference Range Interpretation Comments CULTURE, URINE (test SPECIMEN NUMBER: code = 41334) [id number] CULTURE, [id number] 00:00:00 Test Item Value Reference Range Interpretation Comments CULTURE, URINE (test SPECIMEN NUMBER: code = 62937) [id number] CULTURE, [id number] 00:00:00 Test Item Value Reference Range Interpretation Comments CULTURE, URINE (test SPECIMEN NUMBER: code = [id number]) [id number] CULTURE, [id number] 00:00:00 Test Item Value Reference Range Interpretation Comments CULTURE, URINE (test SPECIMEN NUMBER: code = [id number]) [id number] CULTURE, [id number] 00:00:00 Test Item Value Reference Range Interpretation Comments CULTURE, URINE (test SPECIMEN NUMBER: code = 13411) [id number] CULTURE, [id number] 00:00:00 Test Item Value Reference Range Interpretation Comments CULTURE, URINE (test SPECIMEN NUMBER: code = 09472) [id number]
--- NOTE | 2022-06-30 08:40 | RAD REPORT ---
EXAM DESCRIPTION: RAD - Chest Single View - 06/30/2022 8:17 am CLINICAL HISTORY: AMS Chest pain. COMPARISON: Abdomen Acute Series dated 05/05/2022; Chest Single View dated 02/08/2022; Chest Single Vi ew dated 12/28/2021; Chest Single View dated 12/26/2021 FINDINGS: Portable technique limits examination quality. The lungs are emphysematous but grossly clear. The heart is normal in size. No displaced fractures. IMPRESSION: Mild COPD.
[2022-06-30 09:17] LABS: Absolute Lymphocytes (CBC) 1.5 K/uL (0.7-4.9); Hematocrit 36.4 % (36.0-45.0); Lymphocytes % 23.5 % (15.3-44.8); MCV 89.9 fL (80-100); MPV 6.5 fL (7.6-11.3); RBC Red Blood Cell Count 4.05 M/uL (3.86-4.86)
[2022-06-30 09:18] LABS: Protime INR 1.04
--- NOTE | 2022-06-30 09:33 | RAD REPORT ---
EXAM DESCRIPTION: CT - Head Brain Wo Cont - 06/30/2022 9:19 am CLINICAL HISTORY: HTN;Confused Headache, CVA symptomology COMPARISON: Head angio dated 06/30/2022; Head Brain Wo Cont dated 02/20/2022 TECHNIQUE: All CT scans are performed using dose optimization technique as appropriate and may inclu de automated exposure control or mA/KV adjustment according to patient size. FINDINGS: No intracranial hemorrhage, hydrocephalus or extra-axial fluid collection.Aikf-rr-clasguxp brain atrophy.No areas of brain edema or evidence of midline shift. The paranasal sinuses and mastoids are clear. The calvarium is intact. IMPRESSION: No acute intracranial abnormality.
[2022-06-30 09:34] LABS: Albumin 3.5 g/dL (3.4-5.0); Bilirubin Direct 0.1 mg/dL (0-0.2); Bilirubin Total 0.3 mg/dL (0.2-1.0); Potassium 3.3 mEq/L (3.5-5.1); Protein, Total 7.3 g/dL (6.4-8.2); Troponin High Sensitivity 5.4 pg/mL (<58.9)
[2022-06-30] MEDS ORDERED: ONDANSETRON 4 MG/2 ML VIAL ONE (09:36)
--- NOTE | 2022-06-30 09:56 | RAD REPORT ---
EXAM DESCRIPTION: CT - Head angio - 06/30/2022 9:21 am CLINICAL HISTORY: HTN, confused Headache, drowsiness, CVA symptomology COMPARISON: Head Brain Wo Cont dated 02/20/2022; Head Brain Wo Cont dated 12/28/2021 TECHNIQUE: CT angiography of the head was performed with MIPs. All CT scans are performed using dose optimization technique as appropriate and may include automated exposure control or mA/KV adjustment according to patient size. FINDINGS: No evidence of large vessel occlusion. No evidence of aneurysm is detected. No flow-limiti ng stenosis or vascular malformation identified. Antegrade flow is seen in the vertebral arteries. The vertebral arteries are codominant. The visualized dural venous sinuses are patent. IMPRESSION: No significant flow abnormality is detected.
--- NOTE | 2022-06-30 10:05 | RAD REPORT ---
EXAM DESCRIPTION: CT - Neck Angio - 06/30/2022 9:21 am CLINICAL HISTORY: dizzy, HTN Headache, drowsiness COMPARISON: Neck Angio dated 03/08/2021 TECHNIQUE: CT angiography of the neck vessels was performed with MIPs. All CT scans are performed using dose optimization technique as appropriate and may include automated exposure control or mA/KV adjustment according to patient size. FINDINGS: Mild motion degradation is seen. A left aortic arch is identified with normal three vessel configuration of the great vessels. No significant flow abnormality is seen of the common carotid bilaterally. Mild narrowing of both carotid bulbs is seen without significant stenosis. Normal flow is seen within both vertebral arteries. IMPRESSION: Motion degraded study is submitted, limiting detail. Overall, there is no finding to ind icate a significant carotid stenosis on either side.
--- NOTE | 2022-06-30 10:35 | ER ---
Nurse's Notes [facility] Name: Jaimie Amanda Age: 61 yrs Sex: Female : 1960 Arrival Date: 06/30/2022 Time: 07:42 Bed 5 Private MD: Diagnosis: Hypo-osmolality and hyponatremia;Altered mental status, unspecified;Ataxic gait Presentation: 06/30 08:01 Chief complaint: Patient states: Patient reports high blood pressure at home this sg5 morning and too 2 of her Clonidine. EMS called. Patient reports feeling dizzy and nauseated. Coronavirus screen: At this time, the client does not indicate any symptoms associated with coronavirus-19. Ebola Screen: No symptoms or risks identified at this time. Initial Sepsis Screen: Does the patient meet any 2 criteria? No. Patient's initial sepsis screen is negative. Does the patient have a suspected source of infection? No. Patient's initial sepsis screen is negative. Risk Assessment: Do you want to hurt yourself or someone else? Patient reports no desire to harm self or others. Onset of symptoms was June 30, 2022. 08:01 Method Of Arrival: EMS: [facility] sg5 08:01 Acuity: ZHEN 3 sg5 Triage Assessment: 08:03 General: Appears comfortable, Behavior is cooperative, appropriate for age, anxious. sg5 Pain: Denies pain. Cardiovascular: Capillary refill < 3 seconds Rhythm is regular. Respiratory: Airway is patent Trachea midline Respiratory effort is even, unlabored. GI: Reports nausea. Historical: - Home Meds: 08:03 Clonidine Oral [Active]; sg5 - PMHx: 08:03 Anxiety; Chronic Abdominal Pain; Hypertensive disorder; Hypothyroidism; low NA; NIDDM; sg5 - PSHx: 08:03 Thyroidectomy; sg5 - Immunization history:: Adult Immunizations up to date. - Social history:: Smoking status: Patient reports the use of cigarette tobacco products, smokes one-half pack cigarettes per day. - Family history:: not pertinent. - Hospitalizations: : No recent hospitalization is reported. Screenin:33 [facility] ED Fall Risk Assessment (Adult) History of falling in the last 3 months, sg5 including since admission No falls in past 3 months (0 pts). Abuse screen: Denies threats or abuse. Nutritional screening: No deficits noted. Tuberculosis screening: No symptoms or risk factors identified. Assessment: 08:52 General: Appears comfortable, Behavior is calm, cooperative, appropriate for age. sg5 Cardiovascular: Capillary refill < 3 seconds. Respiratory: Airway is patent Trachea midline Respiratory effort is unlabored. GI: Reports nausea. 13:52 Reassessment: Patient appears in no apparent distress at this time. Patient and/or iw family updated on plan of care and expected duration. Pain level reassessed. Patient is alert, oriented x 3, equal unlabored respirations, skin warm/dry/pink. Vital Signs: 08:01 BP 159 / 89; Pulse 68; Resp 18; Temp 98.2; Pulse Ox 97% on R/A; Weight 70.31 kg; Height sg5 5 ft. 7 in. ; Pain 0/10; 08:52 BP 108 / 64; Pulse 80; Resp 16; Pulse Ox 97% on R/A; sg5 09:36 BP 154 / 66; Pulse 56; Resp 20; Pulse Ox 92% on 2 lpm NC; Pain 8/10; sg5 10:45 BP 154 / 66; Pulse 67; Resp 18; Pulse Ox 100% on 2 lpm NC; Pain 7/10; sg5 08:01 Body Mass Index 24.28 (70.31 kg, 170.18 cm) sg5 08:01 Pain Scale: Adult sg5 09:36 Pain Scale: Adult sg5 10:45 Pain Scale: Adult sg5 ED Course: 07:43 Patient arrived in ED. iw 07:45 Villa Byrd MD is Attending Physician. rn 08:01 Jessica Baptiste, CATY is Primary Nurse. sg5 08:03 Triage completed. sg5 08:03 Arm band placed on right wrist. sg5 08:19 Chest Single View XRAY In Process Unspecified. EDMS 09:01 Inserted saline lock: 22 gauge in right antecubital area, using aseptic technique. Blood collected. 09:01 Basic Metabolic Panel Sent. zm 09:02 CBC with Diff Sent. zm 09:02 Hepatic Function Sent. zm 09:02 Protime (+inr) Sent. zm 09:02 Ptt, Activated Sent. zm 09:02 Troponin High Sensitivity Sent. zm 09:21 CT Head Brain wo Cont In Process Unspecified. EDMS 09:[address] In Process Unspecified. EDMS 09:[address] In Process Unspecified. EDMS 10:34 Olegario Bettencourt is Hospitalizing Provider. rn 14:33 Patient has correct armband on for positive identification. sg5 14:33 Patient admitted, IV remains in place. sg5 14:33 No provider procedures requiring assistance completed. sg5 Administered Medications: 09:36 Drug: Ondansetron IVP 4 mg Route: IVP; Site: right antecubital; sg5 10:45 Drug: NS 0.9% IV 1000 ml Route: IV; Rate: 1000 ml; Site: right antecubital; sg5 Medication: 14:34 VIS not applicable for this client. sg5 Outcome: 10:35 Decision to Hospitalize by Provider. rn 14:33 Admitted to Med/surg accompanied by tech, room 201, Report called to Avelina machado 14:33 Condition: good 14:33 Instructed on the need for admit. 14:34 Patient left the ED. sg5 Signatures: Dispatcher [employer] Therese Coello RN RN iw Nieto, Roman, MD MD rn Martinez, Zaina zm Galvan, Stephanie, RN RN sg5
--- NOTE | 2022-06-30 10:36 | EDPHYS ---
Physician Documentation [facility] Name: Jaimie Amanda Age: 61 yrs Sex: Female : 1960 Arrival Date: 06/30/2022 Time: 07:42 Bed 5 Private MD: ED Physician Villa Byrd HPI: 06/30 07:55 This 61 yrs old Female presents to ER via Unassigned with complaints of high blood rn pressure, dizziness. 07:55 The patient has elevated blood pressure and discovered this at home. Onset: The rn symptoms/episode began/occurred last night. Modifying factors:. Associated signs and symptoms: Pertinent positives: dizziness, Pertinent negatives: vomiting, weakness. Severity of symptoms: At its worst the blood pressure was moderate, in the emergency department the blood pressure is unchanged. It is unknown whether or not the patient has had similar symptoms in the past. The patient has not recently seen a physician. Pt reports high blood pressure and dizziness, trouble walking. No headache. Feels a little confused. Denies chest pain/sob/abd pain/back pain. EMS reports had to assist her to walk to stretcher. . Historical: - Home Meds: 08:03 Clonidine Oral [Active]; sg5 - PMHx: 08:03 Anxiety; Chronic Abdominal Pain; Hypertensive disorder; Hypothyroidism; low NA; NIDDM; sg5 - PSHx: 08:03 Thyroidectomy; sg5 - Immunization history:: Adult Immunizations up to date. - Social history:: Smoking status: Patient reports the use of cigarette tobacco products, smokes one-half pack cigarettes per day. - Family history:: not pertinent. - Hospitalizations: : No recent hospitalization is reported. ROS: 07:55 Constitutional: Negative for fever, chills, and weight loss, Eyes: Negative for injury, rn pain, redness, and discharge, Neck: Negative for injury, pain, and swelling, Cardiovascular: Negative for chest pain, palpitations, and edema, Respiratory: Negative for shortness of breath, cough, wheezing, and pleuritic chest pain, Abdomen/GI: Negative for abdominal pain, nausea, vomiting, diarrhea, and constipation, Back: Negative for injury and pain, MS/Extremity: Negative for injury and deformity, Skin: Negative for injury, rash, and discoloration, Neuro: Negative for headache, numbness, tingling, and seizure. Exam: 07:55 Constitutional: This is a well developed, well nourished patient who is awake, alert, rn and in no acute distress. Head/Face: Normocephalic, atraumatic. Eyes: Pupils equal round and reactive to light, extra-ocular motions intact. Lids and lashes normal. Conjunctiva and sclera are non-icteric and not injected. Cornea within normal limits. Periorbital areas with no swelling, redness, or edema. ENT: Mucous membranes moist. Neck: Trachea midline, no masses palpated, and no cervical lymphadenopathy. Supple, full range of motion without nuchal rigidity, or vertebral point tenderness. No Meningismus. Cardiovascular: Regular rate and rhythm. No pulse deficits. Respiratory: No increased work of breathing, no retractions or nasal flaring. Abdomen/GI: Soft, non-tender Skin: Warm, dry MS/ Extremity: Pulses equal, no cyanosis. Neuro: Awake and alert, GCS 15, oriented to person, place, time, and situation. Cranial nerves II-XII grossly intact. Motor strength 5/5 in all extremities. Sensory grossly intact. 09:08 ECG was reviewed by the Attending Physician. rn Vital Signs: 08:01 BP 159 / 89; Pulse 68; Resp 18; Temp 98.2; Pulse Ox 97% on R/A; Weight 70.31 kg; Height sg5 5 ft. 7 in. ; Pain 0/10; 08:52 BP 108 / 64; Pulse 80; Resp 16; Pulse Ox 97% on R/A; sg5 09:36 BP 154 / 66; Pulse 56; Resp 20; Pulse Ox 92% on 2 lpm NC; Pain 8/10; sg5 10:45 BP 154 / 66; Pulse 67; Resp 18; Pulse Ox 100% on 2 lpm NC; Pain 7/10; sg5 08:01 Body Mass Index 24.28 (70.31 kg, 170.18 cm) sg5 08:01 Pain Scale: Adult sg5 09:36 Pain Scale: Adult sg5 10:45 Pain Scale: Adult sg5 MDM: 07:45 Patient medically screened. rn 08:33 ED course: Pt took clonidine x 2 prior to EMS arrival.. rn 10:32 Differential diagnosis: hypertensive crisis, Malignant HTN, CVA, intracerebral rn hemorrhage, hyponatremia, UTI, CVA, vertigo. Data reviewed: vital signs, nurses notes, lab test result(s), EKG, radiologic studies, and as a result, I will discharge patient. Consideration of Admission/Observation Patient was admitted/placed on observation. Escalation of care including admission/observation considered. Management of patient was discussed with the following: Hospitalist: . Counseling: I had a detailed discussion with the patient and/or guardian regarding: the historical points, exam findings, and any diagnostic results supporting the discharge/admit diagnosis, lab results, radiology results, the need for further work-up and treatment in the hospital. Response to treatment: There is no appreciated change of the patient's symptoms at this time, and as a result, I will admit patient. ED course: BP improved, patient took 2 clonidine prior to arrival. CT head/angios neg. Still reports dizziness and trouble walking. + hyponatremia of 120. Will admit for further care. . 06/30 07:47 Order name: Basic Metabolic Panel; Complete Time: 10:06/30 07:47 Order name: CBC with Diff; Complete Time: :06/30 07:47 Order name: Hepatic Function; Complete Time: 10:06/30 07:47 Order name: Protime (+inr); Complete Time: :06/30 07:47 Order name: Ptt, Activated; Complete Time: :06/30 07:47 Order name: Troponin High Sensitivity; Complete Time: 10:11 06/30 07:47 Order name: Urinalysis w/ reflexes; Complete Time: 11:06/30 07:47 Order name: CT Head Brain wo Cont; Complete Time: 10:06/30 07:47 Order name: Head Angio CT; Complete Time: 10:06/30 07:47 Order name: Neck Angio CT; Complete Time: 10:06/30 07:47 Order name: Chest Single View XRAY; Complete Time: 09:06/30 13:01 Order name: Brain Wo Cont EDMS 06/30 07:47 Order name: EKG; Complete Time: 07:48 06/30 07:47 Order name: Cardiac monitoring; Complete Time: 13:48 06/30 07:47 Order name: EKG - Nurse/Tech; Complete Time: 08:52 06/30 07:47 Order name: IV Saline Lock; Complete Time: 09: rn 06/30 07:47 Order name: Labs collected and sent; Complete Time: : rn 06/30 07:47 Order name: NPO; Complete Time: : rn 06/30 07:47 Order name: O2 Per Protocol; Complete Time: 09:02 rn 06/30 07:47 Order name: O2 Sat Monitoring; Complete Time: : rn EC:08 Rate is 54 beats/min. Rhythm is regular. QRS Ava is Normal. NJ interval is normal. QRS rn interval is normal. QT interval is normal. No Q waves. No ST changes noted. Clinical impression: Sinus bradycardia. Interpreted by me. Reviewed by me. Administered Medications: 09:36 Drug: Ondansetron IVP 4 mg Route: IVP; Site: right antecubital; sg5 10:45 Drug: NS 0.9% IV 1000 ml Route: IV; Rate: 1000 ml; Site: right antecubital; sg5 Disposition Summary: 06/30/22 10:35 Hospitalization Ordered Hospitalization Status: Inpatient Admission rn Provider: Olegario Bettencourt rn Location: Telemetry/MedSurg (Inpatient) rn Condition: Stable rn Problem: new rn Symptoms: have improved rn Bed/Room Type: Standard rn Room Assignment: 201(06/30/22 13:22) dw Diagnosis - Hypo-osmolality and hyponatremia rn - Altered mental status, unspecified rn - Ataxic gait rn Forms: - Medication Reconciliation Form rn - SBAR form rn Signatures: Dispatcher [employer] Alison Gipson RN RN dw Nieto, Roman, MD MD rn Galvan, Stephanie, RN RN sg5 Corrections: (The following items were deleted from the chart) 13:22 10:35 rn dw
[2022-06-30] MEDS ORDERED: NA CHLORIDE 0.9% 1,000 ML ONE (10:44)
[2022-06-30 10:53] LABS: Specific Gravity > 1.030 (1.005-1.030); Urine Bilirubin NEGATIVE (Negative); Urine Blood Negative (Negative); Urine Clarity Clear (Clear); Urine Color Light-Yellow (Yellow); Urine Glucose NEGATIVE (Negative); Urine Protein NEGATIVE (Negative); Urine Urobilinogen Normal (Normal)
[2022-06-30] MEDS ORDERED: ACETAMINOPHEN 325 MG TABLET PO PRN (12:49)
[2022-06-30] MEDS ORDERED: POTASSIUM CL SA 10 MEQ TAB PO ONE (13:09)
--- NOTE | 2022-06-30 13:10 | P.HP ---
Certification for Inpatient Patient admitted to: Inpatient With expected LOS: >2 Midnights Patient will require the following post-hospital care: None Practitioner: I am a practitioner with admitting privileges, knowledge of patient current condition, hospital course, and medical plan of care. Services: Services provided to patient in accordance with Admission requirements found in Title 42 Section 412.3 of the Code of Federal Regulations Patient History Date of Service: 06/30/22 Reason for admission: Persistent dizziness and near syncope History of Present Illness: Patient is a 61-year-old female with a past medical history significant for hypertension, anxiety disorder, depression, HLD, hypothyroidism, DM2, nicotine dependence, seizure disorder who presents with complaint of persistent dizziness and near syncope onset this morning. Patient reported associated signs and symptoms of fatigue, generalized weakness, difficulty ambulating, headache, blurry vision and nausea. Patient denies any other signs or symptoms. Symptoms are aggravated or relieved by nothing. Patient decided to present to the hospital due to worsening symptoms. Allergies No Known Allergies Allergy (Verified 12/14/21 16:45) Home Medications: Levothyroxine Sodium [Synthroid] 137 mcg PO [id number] 03/10/21 Losartan/Hydrochlorothiazide [Losartan-Hctz 100-25 mg Tab] 1 tab PO DAILY 03/10/21 Risperidone [Risperdal] 2 mg PO BID 03/10/21 cloNIDine HCL [Catapres*] 0.3 mg PO Q8H 03/10/21 clonazePAM [Klonopin*] 1 mg PO TIDP PRN 03/10/21 ondansetron HCL [Zofran] 4 mg PO Q8HP PRN 03/10/21 Venlafaxine HCl [Effexor] 100 mg PO TIDWM 12/27/21 Metformin ER [Glucophage ER] 500 mg PO BID 12/29/21 OXcarbazepine [Trileptal] 600 mg PO SEECOM 12/29/21 Carvedilol [Coreg] 1 tab PO DAILY 06/30/22 Dicyclomine HCl 20 mg PO QID 06/30/22 Fenofibrate 1 tab PO DAILY 06/30/22 Loratadine 1 tab PO DAILY 06/30/22 Sertraline HCl 1 tab PO BEDTIME 06/30/22 Trazodone HCl 0.5 - 1 tab PO BEDTIME 06/30/22 - Past Medical/Surgical History Diabetic: No -: Hepatitis -: Anxiety -: HTN -: Hypothyroidism -: Alcoholic induced seizures -: NIDDM -: Thyroidectomy -: Plastic surgery breast -: hernia repair Psychosocial/ Personal History: Patient lives at home with her mother - Family History Mother -: Hypertension, Diabetes, Cancer Notes: Thyroid, Knee replacement Father -: Heart disease, Hypertension, Diabetes - Social History Smoking Status: Current every day smoker Counseled patient to stop smoking for: less than 10 minutes Smoking therapy provided: Yes Patient receptive to therapy: Yes Alcohol use: Yes CD- Drugs: No Caffeine use: Yes Place of Residence: Home Review of Systems General: Weakness, Other (Fatigue) Eyes: Other (Blurry vision) ENT: Unremarkable Respiratory: Unremarkable Cardiovascular: Unremarkable Gastrointestinal: Nausea Genitourinary: Unremarkable Musculoskeletal: Unremarkable Integumentary: Unremarkable Neurological: Weakness, Other (Dizziness, difficulty walking, near syncope, headache) Lymphatics: Unremarkable Physical Examination - Physical Exam General: Alert, In no apparent distress, Oriented x3, Cooperative HEENT: Atraumatic, PERRLA, Mucous membr. moist/pink, EOMI, Sclerae nonicteric Neck: Supple, 2+ carotid pulse no bruit, No LAD, Without JVD or thyroid abnormality Respiratory: Clear to auscultation bilaterally, Diminished Cardiovascular: No edema, Regular rate/rhythm, Normal S1 S2 Capillary refill: <2 Seconds Gastrointestinal: Normal bowel sounds, Soft and benign, No tenderness Musculoskeletal: No clubbing, No swelling, No contractures, No tenderness Integumentary: No rashes, No breakdown, No significant lesion Neurological: Normal speech, Normal tone, Normal affect, Abnormal gait Lymphatics: No axilla or inguinal lymphadenopathy - Studies Laboratory Data (last 24 hrs) 06/30/22 08:57: PT 11.4, INR 1.04, APTT 28.9 06/30/22 08:57: WBC 6.50, Hgb 12.5, Hct 36.4, Plt Count 381 06/30/22 08:57: Sodium 120 L, Potassium 3.3 L, BUN 18, Creatinine 0.73, Glucose 161 H, Total Bilirubin 0.3, AST 22, ALT 32, Alkaline Phosphatase 75 Assessment and Plan - Plan --Near syncope\dizziness. Patient reports persistent dizziness. CTA head\Neck, CT head unremarkable for any acute findings. MRI brain pending for further evaluation. Echocardiogram pending to assess cardiac structures and function. Fall precautions. Neurology consulted. We will further recommendations. --Hyponatremia. Patient has a history of hyponatremia requiring multiple hospitalizations. Nephrology consulted. BMP every 4 hours. Further management per catia designer. --Abnormality of gait and mobility. MRI pending for further evaluation. PT eval and treat. --Anxiety disorder\depression. Continue home medication. --DM2. BS monitoring with sliding scale insulin. --Nicotine dependence. Patient counseled on tobacco cessation. Refuses nicotine patch. -- Hyperlipidemia. Continue home medication. --Hypertension. Poorly controlled. Continue home medications and hydralazine as needed. --Hypokalemia. Replete as needed. --- Hypothyroidism. Continue Synthroid -- Headache. Tylenol as needed. --History of seizures. Continue home medication. Seizure precautions. -- DVT prophylaxis with Lovenox subQ Discharge Plan: Home Plan to discharge in: Greater than 2 days - Advance Directives Does patient have a Living Will: No Does patient have a Durable POA for Healthcare: No - Code Status/Comfort Care Code Status Assessed: Yes Physician Review: Patient Assessed, Agree with Above Assessment and Plan Critical Care: No
[2022-06-30 14:40] VITALS: BMI 24.3
[2022-06-30] MEDS: ONDANSETRON 4 MG/2 ML VIAL IV PRN ×2 (15:45→22:12)
[2022-06-30 15:49] LABS: Magnesium 1.7 mg/dL (1.6-2.4); Phosphorus 2.9 mg/dL (2.5-4.9); Thyroid Stimulating Hormone 1.93 uIU/mL (0.358-3.740)
[2022-06-30 15:52] LABS: Potassium 3.5 mEq/L (3.5-5.1)
[2022-06-30] MEDS ORDERED: HYDRALAZINE HCL 20 MG/ML VIAL IV PRN (15:56)
[2022-06-30] MEDS ORDERED: OXCARBAZEPINE 600 MG PO SCH (16:00)
[2022-06-30] MEDS: CLONIDINE HCL 0.3 MG TAB PO SCH (16:20)
[2022-06-30] MEDS: DICYCLOMINE HCL 10 MG CAP PO SCH ×2 (16:21→20:20)
[2022-06-30] MEDS: INSULIN -REGULAR HUMAN 50 UNIT/0.5 ML ML SQ SCH ×2 (16:24→21:00)
[2022-06-30] MEDS ORDERED: ASPIRIN 81 MG CHEWABLE TABLET PO ONE (17:00)
[2022-06-30] MEDS ORDERED: VENLAFAXINE HCL 100 MG PO SCH (17:00)
[2022-06-30] MEDS: TRAMADOL HCL 50 MG TAB PO PRN (17:07)
--- NOTE | 2022-06-30 19:22 | P.PN ---
Date of Service: 07/01/22 Subjective: ROS: 10 point ROS as noted above, otherwise negative Physical Exam: Gen: Alert, NAD, AOx3 HEENT: normal conjunctiva, sclera anicteric CV: regular rate & rhythm, no edema Pulm: non-labored respirations on room air, clear bilaterally Abd: soft, non-tender, non-distended MSK: no joint tenderness Neuro: normal speech, normal affect, moves all extremities vitals reviewed Problem List: Near syncope\dizziness Hyponatremia Abnormality of gait and mobility Anxiety disorder\depression DM2 Hyperlipidemia Hypertension Hypokalemia Hypothyroidism History of seizures Near syncope\dizziness Patient reports persistent dizziness. CTA head\Neck negative CT head unremarkable for any acute findings. MRI brain pending Echocardiogram pending Neurology consulted Hyponatremia Patient has a history of hyponatremia requiring multiple hospitalizations. Nephrology consulted BMP every 4 hours Abnormality of gait and mobility MRI pending PT eval and treat DM2 - BS monitoring with sliding scale insulin Nicotine dependence - Patient counseled on tobacco cessation. Refuses nicotine patch. Hypokalemia - Replete as needed Hypothyroidism - Continue Synthroid Headache -Tylenol as needed Anxiety disorder\depression Hyperlipidemia History of seizures Hypertension Continue home medication hydralazine as needed VTE: Lovenox subQ Code: Full Dispo: Home 2-3 days
[2022-06-30] MEDS ORDERED: SODIUM CHLORIDE 1 GM TAB PO ONE (19:23)
[2022-06-30 19:38] LABS: Potassium 3.2 mEq/L (3.5-5.1)
[2022-06-30] MEDS: clonazePAM 1 MG TAB PO PRN (20:27)
[2022-06-30] MEDS ORDERED: HOME MED 1 EA UNK (Trazodone Hcl [Trazodone Hcl] 100 MG Tablet) PO SCH (21:00)
[2022-06-30] MEDS ORDERED: HOME MED 1 EA UNK (Risperidone [Risperdal] 2 MG Tablet) PO SCH (21:00)
[2022-06-30] MEDS ORDERED: OXcarbazepine 150 MG TAB PO SCH (21:00)
[2022-06-30] MEDS ORDERED: POTASS/SODIUM PHOSPHATE 1 PKT POWD.PACK PO ONE (21:00)
[2022-06-30] MEDS ORDERED: RISPERIDONE 1 MG TABLET PO SCH (21:00)
[2022-06-30] MEDS ORDERED: SERTRALINE HCL 100 MG TAB PO SCH (21:00)
[2022-06-30] MEDS ORDERED: TRAZODONE 50 MG TABLET PO SCH (21:00)
[2022-06-30] MEDS ORDERED: MAGNESIUM OXIDE 400 MG TAB PO SCH (21:00)
[2022-06-30] MEDS ORDERED: ZOLPIDEM TARTRATE 10 MG TABLET PO PRN (21:50)
[2022-06-30] MEDS ORDERED: THIAMINE 200 MG/2 ML INJ IVP ONE (21:58)
[2022-06-30 22:25] LABS: Potassium 3.9 mEq/L (3.5-5.1)
[2022-07-01] MEDS: CLONIDINE HCL 0.3 MG TAB PO SCH
[2022-07-01 02:35] VITALS: O2SAT 99
[2022-07-01 03:20] LABS: Absolute Lymphocytes (CBC) 3.4 K/uL (0.7-4.9); Hematocrit 36.1 % (36.0-45.0); Lymphocytes % 36.3 % (15.3-44.8); MCV 88.6 fL (80-100); MPV 6.7 fL (7.6-11.3); RBC Red Blood Cell Count 4.07 M/uL (3.86-4.86)
--- NOTE | 2022-07-01 03:55 | CON ---
Date of Consultation: 06/30/2022 Chief Complaint: Hyponatremia, hypoosmolar state. History Of Present Illness: Patient presented to the hospital because of dizziness and near syncope. She is a 61-year-old female with past medical history significant for hypertension, anxiety disorde r, depression, HLD, hypothyroidism, diabetes mellitus type 2, nicotine dependence, seizure disorder, and history of noncompliance with medication. Patient presented to the hospital complaining of fatig ue, generalized weakness, dizziness, pleural effusion, and nausea. She was medicated for nausea with Zofran. Patient denies chest pain, palpitation. Denies syncope or seizure. On previous occasion, patient was admitted with multiple complaints and she was found to have severe hyponatremia with high ADH state complicated by electrolyte abnormalities and induced by loss sodium diet, nausea, vomiting , anxiety and antidepressants as well as HCTZ. Patient on many occasions was told to avoid HCTZ. Past Medical History: Hepatitis, anxiety, hypertension, hypothyroidism, alcohol-induced seizure, NID DM, thyroidectomy, plastic breast surgery, hernia repair. Family History: Mother: Hypertension, diabetes, thyroid cancer, knee replacement. Father: Heart d isease hypertension, diabetes. Social History: Current everyday smoker. She was counseled by primary team for smoking cessation. Denies drugs, although she drinks alcohol. Review of Systems: Constitutional: Complains of generalized weakness, fatigue. Eyes: Complains of blurry vision. Ears, Nose, Mouth, and Throat: Denies nasal bleeding. Denies epistaxis. Respiratory: Denies PND or orthopnea. Cardiovascular: Denies palpitation. Gastrointestinal: Complains of nausea. : Denies neurological complaints of weakness, dizziness, difficulty with walking, near syncope, an d headache. Physical Examination: General: Alert, oriented x3. Cooperative. Eyes: Anicteric sclerae. EOMI. Neck: Supple. No JVD. No bruits. Lungs: Normal respiratory effort. Clear to auscultation bilaterally. Heart: S1, S2. No pericardial friction rub. Abdomen: Soft, benign. No rebound. No guarding. Extremities: No edema. Neurological: Normal speech. No tremor. Laboratory Data: Blood work: Sodium 120, potassium 3.3, BUN 18, creatinine 0.73, glucose 161. Tota l bilirubin 0.3. PT 11.4, INR 1.04, PTT 28.9. Impression And Plan: 1.Near syncope, dizziness, nausea, vomiting. Hyponatremia is due to high ADH state complicated by d iminished solute intake, decreased appetite, chronic pain, and nausea. Patient will continue electro lyte replacement with potassium phosphate. Patient was found to have borderline hypophosphatemia and hypomagnesemia. Magnesium replacement was ordered. Patient received IV normal saline. Continue p. o. fluid restriction. Continue sodium chloride tablets and monitor electrolytes closely. 2.Hypokalemia, persistent. Patient received potassium chloride. Re-evaluate after medication. 3.History of seizure. Continue home medication. 4.History of alcohol intake per primary team. Continue thiamine. EB/MODL Voice ID: [id number] Report ID: [id number]
[2022-07-01] MEDS: ONDANSETRON 4 MG/2 ML VIAL IV PRN (04:04)
[2022-07-01] MEDS ORDERED: FLEET ENEMA ADULT PR ONE (05:08)
[2022-07-01] MEDS: TRAMADOL HCL 50 MG TAB PO PRN (05:16)
[2022-07-01] MEDS: clonazePAM 1 MG TAB PO PRN (05:28)
[2022-07-01] MEDS ORDERED: LEVOTHYROXINE SOD 0.025 MG TAB PO SCH ×2 (06:00→06:30)
[2022-07-01] MEDS ORDERED: HOME MED 1 EA UNK (Levothyroxine Sodium [Synthroid] 137 MCG Tablet) PO SCH (06:00)
[2022-07-01] MEDS ORDERED: LEVOTHYROXINE SOD 0.112 MG TAB PO SCH (06:00)
[2022-07-01 06:01] VITALS: BP 170/80; TEMP 97.1
--- NOTE | 2022-07-01 08:18 | RAD REPORT ---
EXAM DESCRIPTION: US - Renal Ultrasound-Complete - 07/01/2022 12:25 am CLINICAL HISTORY: hypertension COMPARISON: Abdomen Pelvis W Contrast dated 05/04/2022 TECHNIQUE: Sonographic grayscale and color flow images of the kidneys and bladder were obtained. FINDINGS: Both kidneys are normal in size, shape and echotexture. The right kidney measures 11.4 centimeter in length. No hydronephrosis, focal mass or perinephric flu id. The left kidney measures 11.8 centimeter in length. No hydronephrosis, focal mass or perinephric flui d. Incidentally noted simple thin-walled 8 millimeter lower pole cortical cyst. No echogenic shadowing calculi bilaterally. The urinary bladder is incompletely distended without gross abnormality seen. IMPRESSION: Essentially normal renal and bladder ultrasound.
[2022-07-01] MEDS ORDERED: ASPIRIN 81 MG CHEWABLE TABLET PO SCH (09:00)
[2022-07-01] MEDS ORDERED: FENOFIBRATE 160 MG TAB PO SCH (09:00)
[2022-07-01] MEDS ORDERED: carvediloL 12.5 MG TAB PO SCH (09:00)
[2022-07-01] MEDS ORDERED: THIAMINE 200 MG/2 ML INJ IVP SCH ×2 (09:00)
[2022-07-01] MEDS ORDERED: LORATADINE 10 MG TAB PO SCH (09:00)
[2022-07-01] MEDS ORDERED: ENOXAPARIN 40 MG/0.4 ML SQ SCH (09:00)
[2022-07-01] MEDS ORDERED: OXcarbazepine 150 MG TAB PO SCH (09:00)
[2022-07-01] MEDS ORDERED: LOSARTAN POTASSIUM 50 MG TABLET PO SCH (09:00)
--- NOTE | 2022-07-01 09:02 | P.DS ---
Admission Date: 06/30/22 Discharge Date: 07/01/22 Disposition: AMA-LEFT AGAINST MEDICAL ADVIC Reason for Admission: Persistent dizziness and near syncope Consultations: Nephrology - Dr. Carey-Aravind Neurology - Dr. Stewart Brief History of Present Illness: 61yo F, PMH: hypertension, anxiety disorder, depression, HLD, hypothyroidism, DM2, nicotine dependence, seizure disorder Patient presents with complaint of persistent dizziness and near syncope onset this morning. Patient reported associated signs and symptoms of fatigue, generalized weakness, difficulty ambulating, headache, blurry vision and nausea. Patient denies any other signs or symptoms. Symptoms are aggravated or relieved by nothing. Patient decided to present to the hospital due to worsening symptoms. Hospital Course: Problem List: Near syncope\dizziness Hyponatremia Abnormality of gait and mobility Anxiety disorder\depression DM2 Hyperlipidemia Hypertension Hypokalemia Hypothyroidism History of seizures Admitted for gait instability, near syncope, and hyponatremia. Patient improved and began to refuse treatment/testing and demanding to leave against medical advice. Nursing staff and ACTING PROFESSOR overnight met with spring and explained the concerns and risk of leaving AMA, including . Reportedly she expressed understanding and has prior history of leaving AMA multiple times. She initially agreed to stay, however, she contacted her mother to come pick her up. When her mother arrived, patient refused to stay any longer and left against medical advice immediately. Prior to me being able to see her and discuss anything further. Physical Exam: patient left AMA before I was able to see her. Vital Signs/Physical Exam: Temp Pulse Resp BP Pulse Ox 97.1 F 70 17 170/80 H 98 07/01/22 04:00 07/01/22 04:00 07/01/22 06:16 07/01/22 04:00 07/01/22 06:16 Laboratory Data at Discharge: WBC 9.50 thou/uL (4.3-10.9) 07/01/22 02:43 Hgb 12.7 g/dL (12.0-15.0) 07/01/22 02:43 Hct 36.1 % (36.0-45.0) 07/01/22 02:43 Plt Count 333 thou/uL (152-406) 07/01/22 02:43 PT 11.4 SECONDS (9.5-12.5) 06/30/22 08:57 INR 1.04 06/30/22 08:57 APTT 28.9 SECONDS (24.3-36.9) 06/30/22 08:57 Sodium Cancelled 07/01/22 10:50 Potassium Cancelled 07/01/22 10:50 BUN Cancelled 07/01/22 10:50 Creatinine Cancelled 07/01/22 10:50 Glucose Cancelled 07/01/22 10:50 Uric Acid 1.9 mg/dL (2.6-6.0) L 06/30/22 21:57 Phosphorus 2.9 mg/dL (2.5-4.9) 06/30/22 14:56 Magnesium 1.7 mg/dL (1.6-2.4) 06/30/22 14:56 Total Bilirubin 0.3 mg/dL (0.2-1.0) 06/30/22 08:57 AST 22 U/L (15-37) 06/30/22 08:57 ALT 32 U/L (13-56) 06/30/22 08:57 Alkaline Phosphatase 75 U/L (45-117) 06/30/22 08:57 Home Medications: Levothyroxine Sodium [Synthroid] 137 mcg PO [id number] 03/10/21 Losartan/Hydrochlorothiazide [Losartan-Hctz 100-25 mg Tab] 1 tab PO DAILY 03/10/21 Risperidone [Risperdal] 2 mg PO BID 03/10/21 cloNIDine HCL [Catapres*] 0.3 mg PO Q8H 03/10/21 clonazePAM [Klonopin*] 1 mg PO TIDP PRN 03/10/21 ondansetron HCL [Zofran] 4 mg PO Q8HP PRN 03/10/21 Venlafaxine HCl [Effexor] 100 mg PO TIDWM 12/27/21 Metformin ER [Glucophage ER] 500 mg PO BID 12/29/21 OXcarbazepine [Trileptal] 600 mg PO SEECOM 12/29/21 Carvedilol [Coreg] 1 tab PO DAILY 06/30/22 Dicyclomine HCl 20 mg PO QID 06/30/22 Fenofibrate 1 tab PO DAILY 06/30/22 Loratadine 1 tab PO DAILY 06/30/22 Sertraline HCl 1 tab PO BEDTIME 06/30/22 Trazodone HCl 0.5 - 1 tab PO BEDTIME 06/30/22 Followup: NONE,NONE [Primary Care Provider] - Time spent managing pt's care (in minutes): 45
--- NOTE | 2022-07-02 04:58 | EKG ---
Test Date: 2022-06-30 Test Time: 08:49:28 [employer]ry M[employer] Supervisor: ANAHI MEASUREMENT RESULTS: Intervals: Rate: 54 FL: 204 QRSD: 92 QT: 448 QTc: 424 [place]: P: 70 FL: 204 QRS: 49 T: 77 INTERPRETIVE STATEMENTS: Sinus bradycardia Nonspecific T wave abnormality Abnormal ECG Compared to ECG 05/17/2022 12:25:50 T-wave abnormality now present Sinus rhythm no longer present Myocardial infarct finding no longer present Electronically Signed On 07-02-22 04:52:54 CDT by Daniel Cespedes
== END 2022-07-01 06:30 | disposition left against medical advice (07) | DRG 312 ==
LOC: ER 07:42 → ERHOLD 13:02 → 2ND 13:48
PROVIDERS: ADMIT Internal Medicine; ATTEND Internal Medicine
DX: R55 Syncope and collapse (principal); E87.1 Hypo-osmolality and hyponatremia; Z53.21 Procedure and treatment not carried out due to patient leaving prior to being seen by health care provider; R42 Dizziness and giddiness; R26.9 Unspecified abnormalities of gait and mobility; E11.9 Type 2 diabetes mellitus without complications; G40.909 Epilepsy, unspecified, not intractable, without status epilepticus; I10 Essential (primary) hypertension; E87.6 Hypokalemia; E78.5 Hyperlipidemia, unspecified; R11.2 Nausea with vomiting, unspecified; E83.39 Other disorders of phosphorus metabolism; R26.0 Ataxic gait; E83.42 Hypomagnesemia; F41.8 Other specified anxiety disorders; G89.29 Other chronic pain; R51.9 Headache, unspecified; H53.8 Other visual disturbances; E89.0 Postprocedural hypothyroidism; K75.9 Inflammatory liver disease, unspecified; F17.210 Nicotine dependence, cigarettes, uncomplicated; Z71.6 Tobacco abuse counseling; Z91.148 Patient's other noncompliance with medication regimen for other reason; Z79.899 Other long term (current) drug therapy; Z82.49 Family history of ischemic heart disease and other diseases of the circulatory system; Z83.3 Family history of diabetes mellitus
CPT/HCPCS: 36415; 70450; 70496; 70498; 71045; 76770; 80048; 80076; 81003; 82550; 82947; 83735; 84100; 84439; 84443; 84484; 84550; 85025; 85610; 85730; 93005; 96374; 99285; J0360; J2405; J3411; J7030; Q9967

== ENCOUNTER 2022-07-01 09:21 | Emergency (ER) | payer OTHER ==
--- OUTSIDE RECORDS SUMMARY | 2022-07-01 09:36 | XMS REPORT | Continuity of Care Document ---
:1960 Author Organization [facility] t Address [address] [place] [address] [place] [id number] Care Team Providers Name Role Phone [facility] Primary Care Physician MATT SIMPSON Attending Clinician Unavailable MATT SIMPSON Attending Clinician Unavailable Doctor Unassigned, [facility] Attending Clinician Unavailable WALLY KRISHNAMURTHY Attending Clinician Unavailable Natacha Brewster Attending Clinician Payers Payer Name Policy Type Policy Number Effective Date Expiration Date Sarina castelan [facility] [id number] 2017 00:00:00 PLUS Problems This patient has [...] ers OPHEN INGREDI 07-27 ity of 00:00: [place] [facility] [...] Cente r Alcohol intake 2016-05-01 2016-05-01 Current [facility] 00:00:00 00:00:00 non-drinker of Medical nter alcohol (finding) Sex Assigned At [birth year] [facility] 00:00:00 00:00:00 [facility] Smoking Status Start Date Stop Date Source Smokes tobacco daily 2016-05-01 00:00:00 [facility] Medications Ordered Filled Start Stop Current [...] capsule 00:00: 00 OXcarbazepi 2017-0 Yes 600mg Q.[id number] Take [address] [facility] [address] ne 2-23 [id number] mg by Yasir (TRILEPTAL) 10:23: 3D mouth 3 Med ical 600 MG 59 (three) Center tablet times daily. PARoxetine 2017-0 Yes 40mg QD Take [address] (PAXIL) 40 2-23 [facility] tablet 10:23: nightly. [facility] [address] OXcarbazepi 2017-0 Yes 600mg Q.01482482 Take [address] ne 2-23 [id number] mg by [facility] (TRILEPTAL) 10:23: 3D mouth 3 Med ical 600 MG 59 (three) Center tablet times daily. PARoxetine 2017-0 Yes 40mg QD Take [address] (PAXIL) 40 2-23 by mouth [facility] tablet 10:23: nightly. [facility] [address] OXcarbazepi 2017-0 Yes 600mg Q.[id number] Take [address] ne 2-23 [id number] mg by [facility] (TRILEPTAL) 10:23: 3D mouth 3 Med ical 600 MG 59 (three) Center tablet times daily. PARoxetine 2017-0 Yes 40mg QD Take [address] (PAXIL) 40 2-23 by mouth [facility] tablet 10:23: nightly. [facility] [address] OXcarbazepi 2017-0 Yes 600mg Q.[id number] Take [address] ne 2-23 [id number] mg by [facility] (TRILEPTAL) 10:23: 3D mouth 3 Med ical 600 MG 59 (three) Center tablet times daily. PARoxetine 2017-0 Yes 40mg QD Take [address] (PAXIL) 40 2-23 by mouth [facility] tablet 10:23: nightly. [facility] [address] OXcarbazepi 2017-0 Yes 600mg Q.[id number] Take [address] ne 2-23 [id number] mg by [facility] (TRILEPTAL) 10:23: 3D mouth 3 Med ical 600 MG 59 (three) Center tablet times daily. OXcarbazepi 2017-0 Yes 600mg Q.44423710 Take [address] ne 2-23 [id number] mg by [facility] (TRILEPTAL) 10:23: 3D mouth 3 Med ical 600 MG 59 (three) Center tablet times daily. PARoxetine 2017-0 Yes 40mg QD Take [address] (PAXIL) 40 2-23 by mouth [facility] tablet 10:23: nightly. [facility] [address] OXcarbazepi 2017-0 Yes 600mg Q.11435730 Take [address] ne 2-23 [id number] mg by [facility] (TRILEPTAL) 10:23: 3D mouth 3 Med ical 600 MG 59 (three) Center tablet times daily. PARoxetine 2017-0 Yes 40mg QD Take [address] (PAXIL) 40 2-23 by mouth [facility] tablet 10:23: nightly. [address] OXcarbazepi 2017-0 Yes 600mg Q.[id number] Take [address] ne 2-23 [id number] mg by [facility] (TRILEPTAL) 10:23: 3D mouth 3 Med ical 600 MG 59 (three) Center tablet times daily. PARoxetine 2017-0 Yes 40mg QD Take [address] (PAXIL) 40 2-23 by mouth [facility] tablet 10:23: nightly. [address] PARoxetine 2017-0 Yes 40mg QD Take [address] (PAXIL) 40 2-23 by mouth [facility] tablet 10:23: nightly. [address] OXcarbazepi 2017-0 Yes 600mg Q.[id number] Take [address] ne 2-23 [id number] mg by [facility] (TRILEPTAL) 10:23: 3D mouth 3 Med ical 600 MG 59 (three) Center tablet times daily. PARoxetine 2017-0 Yes 40mg QD Take [address] (PAXIL) 40 2-23 by mouth [facility] tablet 10:23: nightly. [address] OXcarbazepi 2017-0 Yes 600mg Q.[id number] Take [address] ne 2-23 [id number] mg by [facility] (TRILEPTAL) 10:23: 3D mouth 3 Med ical 600 MG 59 (three) Center tablet times daily. PARoxetine 2017-0 Yes 40mg QD Take [address] (PAXIL) 40 2-23 by mouth [facility] tablet 10:23: nightly. [address] OXcarbazepi 2017-0 Yes 600mg Q.12438774 Take [address] ne 2-23 [id number] mg by [facility] (TRILEPTAL) 10:23: 3D mouth 3 Med ical 600 MG 59 (three) Center tablet times daily. PARoxetine 2017-0 Yes 40mg QD Take [address] (PAXIL) 40 2-23 by mouth [facility] tablet 10:23: nightly. [address] OXcarbazepi 2017-0 Yes 600mg Q.17856382 Take [address] ne 2-23 [id number] mg by [facility] (TRILEPTAL) 10:23: 3D mouth 3 Med ical 600 MG 59 (three) Center tablet times daily. PARoxetine 2017-0 Yes 40mg QD Take [address] (PAXIL) 40 2-23 by mouth [facility] tablet 10:23: nightly. [address] OXcarbazepi 2017-0 Yes 600mg Q.[id number] Take [address] ne 2-23 [id number] mg by [facility] (TRILEPTAL) 10:23: 3D mouth 3 Med ical 600 MG 59 (three) Center tablet times daily. PARoxetine 2017-0 Yes 40mg QD Take [address] (PAXIL) 40 2-23 by mouth [facility] tablet 10:23: nightly. [address] 2017-0 Yes 600mg Q.[id number] Take [address] ne 2-23 [id number] mg by [facility] (TRILEPTAL) 10:23: 3D mouth 3 Med ical 600 MG 59 (three) Center tablet times daily. PARoxetine 2017-0 Yes 40mg QD Take [address] (PAXIL) 40 2-23 by mouth [facility] tablet 10:23: nightly. [address] OXcarbazepi 2017-0 Yes 600mg Q.[id number] Take [address] ne 2-23 [id number] mg by [facility] (TRILEPTAL) 10:23: 3D mouth 3 Med ical 600 MG 59 (three) Center tablet times daily. PARoxetine 2017-0 Yes 40mg QD Take [address] (PAXIL) 40 2-23 by mouth [facility] tablet 10:23: nightly. [address] OXcarbazepi 2017-0 Yes 600mg Q.[id number] Take [address] ne 2-23 [id number] mg by [facility] (TRILEPTAL) 10:23: 3D mouth 3 Med ical 600 MG 59 (three) Center tablet times daily. OXcarbazepi 2017-0 Yes 600mg Q.[id number] Take [address] ne 2-23 [id number] mg by [facility] (TRILEPTAL) 10:23: 3D mouth 3 Med ical 600 MG 59 (three) Center tablet times daily. PARoxetine 2017-0 Yes 40mg QD Take [address] (PAXIL) 40 2-23 by mouth [facility] tablet 10:23: nightly. [facility] [address] OXcarbazepi 2017-0 Yes 600mg Q.71438324 Take [address] ne 2-23 [id number] mg by [facility] (TRILEPTAL) 10:23: 3D mouth 3 Med ical 600 MG 59 (three) Center tablet times daily. PARoxetine 2017-0 Yes 40mg QD Take [address] (PAXIL) 40 2-23 by mouth [facility] tablet 10:23: nightly. [facility] [address] OXcarbazepi 2017-0 Yes 600mg Q.77397612 Take [address] ne 2-23 [id number] mg by [facility] (TRILEPTAL) 10:23: 3D mouth 3 Med ical 600 MG 59 (three) Center tablet times daily. PARoxetine 2017-0 Yes 40mg QD Take [address] (PAXIL) 40 2-23 by mouth [facility] tablet 10:23: nightly. [facility] [address] OXcarbazepi 2017-0 Yes 600mg Q.[id number] Take [address] ne 2-23 [id number] mg by [facility] (TRILEPTAL) 10:23: 3D mouth 3 Med ical 600 MG 59 (three) Center tablet times daily. PARoxetine 2017-0 Yes 40mg QD Take [address] (PAXIL) 40 2-23 by mouth [facility] tablet 10:23: nightly. [facility] [address] PARoxetine 2017-0 Yes 40mg QD Take [address] (PAXIL) 40 2-23 by mouth [facility] tablet 10:23: nightly. [facility] [address] OXcarbazepi 2017-0 Yes 600mg Q.[id number] Take [address] ne 2-23 5122590347 mg by [facility] (TRILEPTAL) 10:23: 3D mouth 3 Med ical 600 MG 59 (three) Center tablet times daily. PARoxetine 2017-0 Yes 40mg QD Take [address] (PAXIL) 40 2-23 by mouth [facility] tablet 10:23: nightly. [address] OXcarbazepi 2017-0 Yes 600mg Q.[id number] Take [address] ne 2-23 [id number] mg by [facility] (TRILEPTAL) 10:23: 3D mouth 3 Med ical 600 MG 59 (three) Center tablet times daily. PARoxetine 2017-0 Yes 40mg QD Take [address] (PAXIL) 40 2-23 by mouth [facility] tablet 10:23: nightly. [address] OXcarbazepi 2017-0 Yes 600mg Q.21172238 Take [address] ne 2-23 [id number] mg by [facility] (TRILEPTAL) 10:23: 3D mouth 3 Med ical 600 MG 59 (three) Center tablet times daily. PARoxetine 2017-0 Yes 40mg QD Take [address] (PAXIL) 40 2-23 by mouth [facility] tablet 10:23: nightly. [address] 2017-0 Yes 600mg Q.99813488 Take [address] ne 2-23 [id number] mg by [facility] (TRILEPTAL) 10:23: 3D mouth 3 Med ical 600 MG 59 (three) Center tablet times daily. PARoxetine 2017-0 Yes 40mg QD Take [address] (PAXIL) 40 2-23 by mouth [facility] tablet 10:23: nightly. [address] OXcarbazepi 2017-0 Yes 600mg Q.38078182 Take [address] ne 2-23 [id number] mg by [facility] (TRILEPTAL) 10:23: 3D mouth 3 Med ical 600 MG 59 (three) Center tablet times daily. PARoxetine 2017-0 Yes 40mg QD Take [address] (PAXIL) 40 2-23 by mouth [facility] tablet 10:23: nightly. [address] OXcarbazepi 2017-0 Yes 600mg Q.31595398 Take [address] ne 2-23 [id number] mg by [facility] (TRILEPTAL) 10:23: 3D mouth 3 Med ical 600 MG 59 (three) Center tablet times daily. PARoxetine 2017-0 Yes 40mg QD Take [address] (PAXIL) 40 2-23 by mouth [facility] tablet 10:23: nightly. [address] OXcarbazepi 2017-0 Yes 600mg Q.30402641 Take [address] ne 2-23 [id number] mg by [facility] (TRILEPTAL) 10:23: 3D mouth 3 Med ical 600 MG 59 (three) Center tablet times daily. PARoxetine 2017-0 Yes 40mg QD Take [address] (PAXIL) 40 2-23 by mouth [facility] tablet 10:23: nightly. [address] OXcarbazepi 2017-0 Yes 600mg Q.20769946 Take [address] ne 2-23 [id number] mg by [facility] (TRILEPTAL) 10:23: 3D mouth 3 Med ical 600 MG 59 (three) Center tablet times daily. OXcarbazepi 2017-0 Yes 600mg Q.74036932 Take [address] ne 2-23 [id number] mg by [facility] (TRILEPTAL) 10:23: 3D mouth 3 Med ical 600 MG 59 (three) Center tablet times daily. PARoxetine 2017-0 Yes 40mg QD Take [address] (PAXIL) 40 2-23 by mouth [facility] tablet 10:23: nightly. [address] PARoxetine 2017-0 Yes 40mg QD Take [address] (PAXIL) 40 2-23 by mouth [facility] tablet 10:23: nightly. [address] OXcarbazepi 2017-0 Yes 600mg Q.85958495 Take [address] ne 2-23 [id number] mg by [facility] (TRILEPTAL) 10:23: 3D mouth 3 Med ical 600 MG 59 (three) Center tablet times daily. PARoxetine 2017-0 Yes 40mg QD Take [address] (PAXIL) 40 2-23 by mouth [facility] tablet 10:23: nightly. [address] OXcarbazepi 2017-0 Yes 600mg Q.69368455 Take [address] ne 2-23 [id number] mg by [facility] (TRILEPTAL) 10:23: 3D mouth 3 Med ical 600 MG 59 (three) Center tablet times daily. PARoxetine 2017-0 Yes 40mg QD Take [address] (PAXIL) 40 2-23 by mouth [facility] tablet 10:23: nightly. [address] OXcarbazepi 2017-0 Yes 600mg Q.78686404 Take [address] ne 2-23 [id number] mg by [facility] (TRILEPTAL) 10:23: 3D mouth 3 Med ical 600 MG 59 (three) Center tablet times daily. PARoxetine 2017-0 Yes 40mg QD Take [address] (PAXIL) 40 2-23 by mouth [facility] tablet 10:23: nightly. [address] OXcarbazepi 2017-0 Yes 600mg Q.[id number] Take [address] ne 2-23 [id number] mg by [facility] (TRILEPTAL) 10:23: 3D mouth 3 Med ical 600 MG 59 (three) Center tablet times daily. PARoxetine 2017-0 Yes 40mg QD Take [address] (PAXIL) 40 2-23 by mouth [facility] tablet 10:23: nightly. [address] LORazepam 2017-0 Yes 1mg Take 1 [...] Goal Plan of Care Note [code = 19828-0] Goal Plan of Care Note [code = 47497-5] Goal Plan of Care Note [code = 34706-6] Goal Plan of Care Note [code = 64845-6] Goal Plan of Care Note [code = 52323-9] Goal Plan of Care Note [code = 57406-9] Goal Plan of Care Note [code = 45229-2] Goal Plan of Care Note [code = 22413-6] Goal Plan of Care Note [code = 87489-4] Goal Plan of Care Note [code = 31468-2] Goal Plan of Care Note [code = 40651-6] Goal Plan of Care Note [code = 63234-2] Goal Plan of Care Note [code = 01040-9] Goal Plan of Care Note [code = 60723-2] Goal Plan of Care Note [code = 91194-2] Goal Plan of Care Note [code = 63049-9] Goal Plan of Care Note [code = 25455-4] Goal Plan of Care Note [code = 91745-6] Goal Plan of Care Note [code = 54917-1] Goal Plan of Care Note [code = 37493-9] Goal Plan of Care Note [code = 31590-0] Goal Plan of Care Note [code = 07196-2] Goal Plan of Care Note [code = 00069-4] Goal Plan of Care Note [code = 95483-7] Goal Plan of Care Note [code = 26968-7] Goal Plan of Care Note [code = 41182-5] Goal Plan of Care Note [code = 87564-3] Goal Plan of Care Note [code = 99238-2] Goal Plan of Care Note [code = 59128-5] Goal Plan of Care Note [code = 66516-4] Goal Plan of Care Note [code = 28710-6] Goal Plan of Care Note [code = 72565-2] Goal Plan of Care Note [code = 22137-2] Goal Plan of Care Note [code = 48478-6] Goal Plan of Care Note [code = 92549-1] Goal Plan of Care Note [code = 06034-6] Goal Plan of Care Note [code = 57059-3] Goal Plan of Care Note [code = 34773-9] Goal Plan of Care Note [code = 43211-6] Goal Plan of Care Note [code = 18700-9] Goal Plan of Care Note [code = 04123-1] Goal Plan of Care Note [code = 18897-4] Goal Plan of Care Note [code = 91390-6] Goal Plan of Care Note [code = 22021-7] Goal Plan of Care Note [code = 74833-8] Goal Plan of Care Note [code = 81550-2] Goal Plan of Care Note [code = 83130-7] Goal Plan of Care Note [code = 19215-1] Goal Plan of Care Note [code = 07680-4] Goal Plan of Care Note [code = 47563-6] Goal Plan of Care Note [code = 91399-6] Goal Plan of Care Note [code = 78342-6] Goal Plan of Care Note [code = 54767-7] Goal Plan of Care Note [code = 68326-2] Goal Plan of Care Note [code = 44988-9] Goal Plan of Care Note [code = 90850-8] Goal Plan of Care Note [code = 80055-5] Goal Plan of Care Note [code = 70638-0] Goal Plan of Care Note [code = 72102-9] Goal Plan of Care Note [code = 19187-0] Goal Plan of Care Note [code = 52914-9] Goal Plan of Care Note [code = 01706-3] Goal Plan of Care Note [code = 88071-3] Goal Plan of Care Note [code = 53211-5] Goal Plan of Care Note [code = 97094-6] Goal Plan of Care Note [code = 65439-8] Goal Plan of Care Note [code = 39995-1] Goal Plan of Care Note [code = 70898-7] Goal Plan of Care Note [code = 40990-1] Goal Plan of Care Note [code = 29451-7] Goal Plan of Care Note [code = 20837-6] Goal Plan of Care Note [code = 36881-3] Goal Plan of Care Note [code = 52988-3] Goal Plan of Care Note [code = 92617-5] Goal Plan of Care Note [code = 15854-1] Goal Plan of Care Note [code = 59570-5] Goal Plan of Care Note [code = 00872-5] Goal Plan of Care Note [code = 50606-0] Goal Plan of Care Note [code = 28871-6] Goal Plan of Care Note [code = 11845-4] Goal Plan of Care Note [code = 31782-8] Goal Plan of Care Note [code = 42262-8] Goal Plan of Care Note [code = 50013-5] Goal Plan of Care Note [code = 33110-5] Goal Plan of Care Note [code = 62822-8] Goal Plan of Care Note [code = 60430-6] Goal Plan of Care Note [code = 38033-3] Goal Plan of Care Note [code = 86201-6] Goal Plan of Care Note [code = 97685-5] Goal Plan of Care Note [code = 11060-9] Goal Plan of Care Note [code = 19606-0] Goal Plan of Care Note [code = 22509-5] Goal Plan of Care Note [code = 41873-7] Goal Plan of Care Note [code = 20782-4] Goal Plan of Care Note [code = 89675-9] Goal Plan of Care Note [code = 14432-1] Goal Plan of Care Note [code = 11874-5] Goal Plan of Care Note [code = 91516-1] Goal Plan of Care Note [code = 30792-4] Goal Plan of Care Note [code = 83746-9] Goal Plan of Care Note [code = 03877-8] Goal Plan of Care Note [code = 09459-3] Goal Plan of Care Note [code = 11671-0] Goal Plan of Care Note [code = 25379-4] Goal Plan of Care Note [code = 82073-7] Goal Plan of Care Note [code = 76252-2] Goal Plan of Care Note [code = 03807-0] Goal Plan of Care Note [code = 88315-9] Goal Plan of Care Note [code = 27156-0] Goal Plan of Care Note [code = 72809-4] Goal Plan of Care Note [code = 25450-5] Goal Plan of Care Note [code = 24749-0] Goal Plan of Care Note [code = 62033-7] Goal Plan of Care Note [code = 80952-4] Goal Plan of Care Note [code = 13566-3] Goal Plan of Care Note [code = 88146-3] Goal Plan of Care Note [code = 05595-2] Goal Plan of Care Note [code = 99328-3] Goal Plan of Care Note [code = 65847-2] Goal Plan of Care Note [code = 06753-4] Goal Plan of Care Note [code = 23102-1] Goal Plan of Care Note [code = 47470-7] Goal Plan of Care Note [code = 35928-8] Goal Plan of Care Note [code = 63215-7] Goal Plan of Care Note [code = 63452-9] Goal Plan of Care Note [code = 29794-4] Goal Plan of Care Note [code = 99611-5] Goal Plan of Care Note [code = 33768-0] Goal Plan of Care Note [code = 18021-4] Goal Plan of Care Note [code = 09117-9] Goal Plan of Care Note [code = 19469-4] Goal Plan of Care Note [code = 65156-6] Goal Plan of Care Note [code = 38435-5] Goal Plan of Care Note [code = 21558-8] Goal Plan of Care Note [code = 81876-6] Goal Plan of Care Note [code = 75750-6] Goal Plan of Care Note [code = 89610-8] Goal Plan of Care Note [code = 85019-5] Goal Plan of Care Note [code = 93801-4] Goal Plan of Care Note [code = 68240-3] Goal Plan of Care Note [code = 90565-8] Goal Plan of Care Note [code = 03189-9] Goal Plan of Care Note [code = 12004-1] Goal Plan of Care Note [code = 26625-2] Goal Plan of Care Note [code = 53167-2] Goal Plan of Care Note [code = 50460-9] Goal Plan of Care Note [code = 08652-5] Goal Plan of Care Note [code = 85159-9] Goal Plan of Care Note [code = 81374-1] Goal Plan of Care Note [code = 05916-5] Goal Plan of Care Note [code = 75218-5] Goal Plan of Care Note [code = 76236-5] Goal Plan of Care Note [code = 61046-9] Goal Plan of Care Note [code = 20071-8] Goal Plan of Care Note [code = 70332-4] Goal Plan of Care Note [code = 41380-0] Goal Plan of Care Note [code = 35370-1] Goal Plan of Care Note [code = 75141-4] Goal Plan of Care Note [code = 71287-7] Goal Plan of Care Note [code = 31450-5] Goal Plan of Care Note [code = 78125-7] Goal Plan of Care Note [code = 97834-8] Goal Plan of Care Note [code = 71402-9] Goal Plan of Care Note [code = 31267-2] Goal Plan of Care Note [code = 32779-4] Goal Plan of Care Note [code = 64429-3] Goal Plan of Care Note [code = 46236-5] Goal Plan of Care Note [code = 99116-5] Goal Plan of Care Note [code = 87047-9] Goal Plan of Care Note [code = 63640-1] Goal Plan of Care Note [code = 05172-1] Goal Plan of Care Note [code = 67332-0] Goal Plan of Care Note [code = 76841-9] Goal Plan of Care Note [code = 33353-5] Goal Plan of Care Note [code = 15647-6] Goal Plan of Care Note [code = 62921-6] Goal Plan of Care Note [code = 83590-1] Goal Plan of Care Note [code = 95556-7] Goal Plan of Care Note [code = 99782-9] Goal Plan of Care Note [code = 30915-9] Goal Plan of Care Note [code = 10737-5] Goal Plan of Care Note [code = 97339-7] Goal Plan of Care Note [code = 93233-8] Goal Plan of Care Note [code = 30035-8] Goal Plan of Care Note [code = 07345-2] Goal Plan of Care Note [code = 71801-5] Goal Plan of Care Note [code = 17806-5] Goal Plan of Care Note [code = 77288-1] Goal Plan of Care Note [code = 85040-3] Goal Plan of Care Note [code = 76872-8] Goal Plan of Care Note [code = 64556-4] Goal Plan of Care Note [code = 52878-3] Goal Plan of Care Note [code = 53566-3] Goal Plan of Care Note [code = 65717-9] Goal Plan of Care Note [code = 45719-3] Goal Plan of Care Note [code = 04165-2] Goal Plan of Care Note [code = 00274-7] Goal Plan of Care Note [code = 99645-8] Goal Plan of Care Note [code = 02392-5] Goal Plan of Care Note [code = 83461-8] Goal Plan of Care Note [code = 99818-3] Goal Plan of Care Note [code = 32643-3] Goal Plan of Care Note [code = 25026-1] Goal Plan of Care Note [code = 37868-2] Goal Plan of Care Note [code = 56744-8] Goal Plan of Care Note [code = 01327-1] Goal Plan of Care Note [code = 06716-0] Goal Plan of Care Note [code = 23012-1] Encounters Start End Encounter Admission Attending Care Care Encounter Source Date/Time Date/Time Type Type Clinicians Facility Department ID 2021-06-01 Outpatient [facility] [id number] [place] 01:36:29 [id number] [facility] 2022-05-24 2022-05-24 Outpatient SFA SFA [id number] Cristian 10:36:59 10:36:59 0318 F Jerman 2022-02-11 2022-02-11 Outpatient SFA SFA [id number] Cristian 09:04:48 09:04:48 1206 F Jerman 2022-02-10 2022-02-10 Outpatient SFA SFA [id number] 022 Cristian 09:29:34 09:29:34 1205 F Jerman 2022-02-10 2022-02-10 Outpatient [id number]- [id number] 2b59x7-5 00:00:00 00:00:00 Visit 4089-4cab 089-4cab-9 -4iv3-z2s bf5-t1b496 968lnus37 bafa93 2022-01-10 2022-01-10 Outpatient SFA SFA [id number] Cristian 09:16:14 09:16:14 1104 F Jerman 2022-01-10 2022-01-10 Outpatient y0pmcpi3- [id number] f2 accaa6-a 00:00:00 00:00:00 Visit aca9-4c83 ca9-4c83-a -d5lq-ae3 7eb-bc13f3 4p2c324u2 f032f9 2021-12-19 2021-12-19 Outpatient SFA SFA [id number] 022 Cristian 16:11:31 16:11:31 1013 F Jerman 2021-12-19 2021-12-19 Outpatient [id number] 00:00:00 00:00:00 Visit p182-735h 770-441f-a -adae-62b amelia-62bace otkoq90ys fd81af 2021-09-17 2021-09-17 Outpatient kgm0gyfu- [id number] e1foyf-9 00:00:00 00:00:00 Visit 935a-4f50 35a-4f50-b -z34i-f7s 77d-c2ba85 [id number] 1264a6 2020-08-03 2020-08-03 Outpatient MATT VÁSQUEZ [facility] [id number] [facility] 10:00:00 10:00:00 MATT SIMPSON [facility] 2020-07-25 2020-07-25 Orders Doctor ABE [id number] 00:00:00 00:00:00 Only Unassigned, BK 350.1.13.10 [facility] 4.2.7.2.686 [id number] 2019-09-26 2019-09-26 Outpatient Bertin RAGHU [facility] [id number] [facility] 16:00:00 16:00:[address] [facility] 2018-10-21 2018-10-21 Telephone [facility] [id number] 00:00:00 00:00:00 Natacha Nguyen 350.1.13.10 [facility] 4[facility]2.7.2.686 [id number] [facility] 204 Building Results Test Description Test Time Test Comments Results Result Comments Source TSH, THIRD GENERATION 2022-05-26 02:57:49 Test Item Value Reference Range Interpretation Comme nts TSH, THIRD GENERATION (test code = 2821) 6.350 UIU/ML 0.400-4.100 H LIPID [id number] 01:09:34 Test Item Value Reference Range Interpretation [...] MOREINFORMATION , SEE CLIENT ANNOUNCE MENT AT [email or web address] LDL/HDL 2.73 RATIO <3.22 [facility] has important (test code = 2238) pathology staff changes effecti ve 05/07/2022. New pathology staff will provide uninter rupted, excellent patie nt care and clinical consultation. S ee URL: [email or web address]. UNLES S OTHERWISE INDIC ATED, ALL TESTING PER FORMED AT [facility] [employer], [facility]. [address] [place] [address] LABOR ATORY DIRECTOR: Andrew WHITLEY CONNOR NUMBER [id number] CAP ACCREDITATION N O. [id number] HEMOGLOBIN [id number] 03:17:24 Test Item Value Reference Range Interpretation Comments HEMOGLOBIN A1c (test 6.4 % 4.2-5.6 H AMER[employer] CAN DIABETES code = 85497) ASSOCIATION IDELINES FOR HGB A1C: PREDIABETES/INC REASED [...] TESTING OR LABORATORY C ONSULTATION. TSH, THIRD [id number] 05:15:49 Test Item Value Reference Range Interpretation Comments TSH, THIRD GENERATION (test code 2.080 UIU/ML 0.400-4.100 = 2821) HEMOGLOBIN [id number] 03:46:00 Test Item Value Reference Range Interpretation Comments HEMOGLOBIN A1c (test 6.6 % 4.2-5.6 H [employer] AN DIABETES code = 63590) ASSOCIATION IDELINES FOR HGB A1C: PREDIABETES/INC REASED [...] PER FORMED [facility] [place]. [address] [place], [place] [address] LABORATORY DIRE CTOR: DIANA RUSS M.D. CLIA NUMBER [id number] [facility] [place]. [id number] LIPID [id number] 02:59:52 Test Item Value Reference Range Interpretation [...] MOREINFORMATION , SEE CLIENT ANNOUNCE MENT AT [email or web address] RISK RATIO LDL/HDL 4.02 RATIO <3.22 H (test code = 2238) [id number] 00:00:00 Test Item Value Reference Range Interpretation Comments TSH, THIRD GENERATION (test code 2.080 UIU/ML = 2821) [id number] 00:00:00 Test Item Value Reference Range Interpretation Comments TSH, THIRD GENERATION (test code 2.080 UIU/ML = 2821) [id number] 00:00:00 Test Item Value Reference Range Interpretation Comments TSH, THIRD GENERATION (test code 2.080 UIU/ML = 2821) LIPID [id number] 00:00:00 Test Item Value Reference Range Interpretation Comments CHOLESTEROL (test code = 2210) 292 MG/DL TRIGLYCERIDES (test code = 2232) 184 MG/DL HDL CHOLESTEROL (test code = 2220) 51 MG/DL CALC LDL CHOL (test code = 2237) 205 MG/DL RISK RATIO LDL/HDL (test code = 4.02 RATIO 2238) LIPID [id number] 00:00:00 Test Item Value Reference Range Interpretation Comments CHOLESTEROL (test code = 2210) 292 MG/DL TRIGLYCERIDES (test code = 2232) 184 MG/DL HDL CHOLESTEROL (test code = 2220) 51 MG/DL CALC LDL CHOL (test code = 2237) 205 MG/DL RISK RATIO LDL/HDL (test code = 4.02 RATIO 2238) HEMOGLOBIN [id number] 00:00:00 Test Item Value Reference Range Interpretation Comments HEMOGLOBIN A1c (test code = 58747) 6.6 % HEMOGLOBIN [id number] 00:00:00 Test Item Value Reference Range Interpretation Comments HEMOGLOBIN A1c (test code = 33170) 6.6 % HEMOGLOBIN [id number] 00:00:00 Test Item Value Reference Range Interpretation Comments HEMOGLOBIN A1c (test code = 62280) 6.6 % [id number] 00:00:00 Test Item Value Reference Range Interpretation Comments TSH, THIRD GENERATION (test code 2.080 UIU/ML = 2821) [id number] 00:00:00 Test Item Value Reference Range Interpretation Comments TSH, THIRD GENERATION (test code 2.080 UIU/ML = 2821) [id number] 00:00:00 Test Item Value Reference Range Interpretation Comments TSH, THIRD GENERATION (test code 2.080 UIU/ML = 2821) LIPID [id number] 00:00:00 Test Item Value Reference Range Interpretation Comments CHOLESTEROL (test code = 2210) 292 MG/DL TRIGLYCERIDES (test code = 2232) 184 MG/DL HDL CHOLESTEROL (test code = 2220) 51 MG/DL CALC LDL CHOL (test code = 2237) 205 MG/DL RISK RATIO LDL/HDL (test code = 4.02 RATIO 2238) LIPID [id number] 00:00:00 Test Item Value Reference Range Interpretation Comments CHOLESTEROL (test code = 2210) 292 MG/DL TRIGLYCERIDES (test code = 2232) 184 MG/DL HDL CHOLESTEROL (test code = 2220) 51 MG/DL CALC LDL CHOL (test code = 2237) 205 MG/DL RISK RATIO LDL/HDL (test code = 4.02 RATIO 2238) HEMOGLOBIN [id number] 00:00:00 Test Item Value Reference Range Interpretation Comments HEMOGLOBIN A1c (test code = 92230) 6.6 % HEMOGLOBIN [id number] 00:00:00 Test Item Value Reference Range Interpretation Comments HEMOGLOBIN A1c (test code = 87789) 6.6 % HEMOGLOBIN [id number] 00:00:00 Test Item Value Reference Range Interpretation Comments HEMOGLOBIN A1c (test code = 75033) 6.6 % [id number] 00:00:00 Test Item Value Reference Range Interpretation Comments TSH, THIRD GENERATION (test code 2.080 UIU/ML = 2821) [id number] 00:00:00 Test Item Value Reference Range Interpretation Comments TSH, THIRD GENERATION (test code 2.080 UIU/ML = 2821) LIPID [id number] 00:00:00 Test Item Value Reference Range Interpretation Comments CHOLESTEROL (test code = 2210) 292 MG/DL TRIGLYCERIDES (test code = 2232) 184 MG/DL HDL CHOLESTEROL (test code = 2220) 51 MG/DL CALC LDL CHOL (test code = 2237) 205 MG/DL RISK RATIO LDL/HDL (test code = 4.02 RATIO 2238) HEMOGLOBIN [id number] 00:00:00 Test Item Value Reference Range Interpretation Comments HEMOGLOBIN A1c (test code = 57636) 6.6 % HEMOGLOBIN [id number] 00:00:00 Test Item Value Reference Range Interpretation Comments HEMOGLOBIN A1c (test code = 93009) 6.6 % [id number] 00:00:00 Test Item Value Reference Range Interpretation Comments TSH, THIRD GENERATION (test code 2.080 UIU/ML = 2821) [id number] 00:00:00 Test Item Value Reference Range Interpretation Comments TSH, THIRD GENERATION (test code 2.080 UIU/ML = 2821) [id number] 00:00:00 Test Item Value Reference Range Interpretation Comments TSH, THIRD GENERATION (test code 2.080 UIU/ML = 2821) LIPID [id number] 00:00:00 Test Item Value Reference Range Interpretation Comments CHOLESTEROL (test code = 2210) 292 MG/DL TRIGLYCERIDES (test code = 2232) 184 MG/DL HDL CHOLESTEROL (test code = 2220) 51 MG/DL CALC LDL CHOL (test code = 2237) 205 MG/DL RISK RATIO LDL/HDL (test code = 4.02 RATIO 2238) LIPID [id number] 00:00:00 Test Item Value Reference Range Interpretation Comments CHOLESTEROL (test code = 2210) 292 MG/DL TRIGLYCERIDES (test code = 2232) 184 MG/DL HDL CHOLESTEROL (test code = 2220) 51 MG/DL CALC LDL CHOL (test code = 2237) 205 MG/DL RISK RATIO LDL/HDL (test code = 4.02 RATIO 2238) HEMOGLOBIN [id number] 00:00:00 Test Item Value Reference Range Interpretation Comments HEMOGLOBIN A1c (test code = 90882) 6.6 % HEMOGLOBIN [id number] 00:00:00 Test Item Value Reference Range Interpretation Comments HEMOGLOBIN A1c (test code = 33741) 6.6 % HEMOGLOBIN [id number] 00:00:00 Test Item Value Reference Range Interpretation Comments HEMOGLOBIN A1c (test code = 52061) 6.6 % HEMOGLOBIN [id number] 00:00:00 Test Item Value Reference Range Interpretation Comments HEMOGLOBIN A1c (test code = 44076) 6.8 % HEMOGLOBIN [id number] 00:00:00 Test Item Value Reference Range Interpretation Comments HEMOGLOBIN A1c (test code = 39923) 6.8 % HEMOGLOBIN [id number] 00:00:00 Test Item Value Reference Range Interpretation Comments HEMOGLOBIN A1c (test code = 76483) 6.8 % LIPID [id number] 00:00:00 Test Item Value Reference Range Interpretation Comments CHOLESTEROL (test code = 2210) 303 MG/DL TRIGLYCERIDES (test code = 2232) 191 MG/DL HDL CHOLESTEROL (test code = 2220) 61 MG/DL CALC LDL CHOL (test code = 2237) 205 MG/DL RISK RATIO LDL/HDL (test code = 3.36 RATIO 2238) LIPID [id number] 00:00:00 Test Item Value Reference Range Interpretation Comments CHOLESTEROL (test code = 2210) 303 MG/DL TRIGLYCERIDES (test code = 2232) 191 MG/DL HDL CHOLESTEROL (test code = 2220) 61 MG/DL CALC LDL CHOL (test code = 2237) 205 MG/DL RISK RATIO LDL/HDL (test code = 3.36 RATIO 2238) [id number] 00:00:00 Test Item Value Reference Range Interpretation Comments TSH, THIRD GENERATION (test code 0.769 UIU/ML = 2821) [id number] 00:00:00 Test Item Value Reference Range Interpretation Comments TSH, THIRD GENERATION (test code 0.769 UIU/ML = 2821) [id number] 00:00:00 Test Item Value Reference Range Interpretation Comments TSH, THIRD GENERATION (test code 0.769 UIU/ML = 2821) COMPREHENSIVE METABOLIC [id number] 00:00:00 Test Item Value Reference Range Interpretation Comments GLUCOSE (test code = 2217) 131 MG/DL BUN (test code = 2208) 13 MG/DL CREATININE (test code = 2214) 0.65 MG/DL eGFR AMER. (test code 113 ML/MIN/1.73 = 43485) eGFR NON- AMER. (test 97 ML/MIN/1.73 code = 46516) CALC BUN/CREAT (test code = 20 RATIO [...] code = 2219) 23 U/L COMPREHENSIVE METABOLIC [id number] 00:00:00 Test Item Value Reference Range Interpretation Comments GLUCOSE (test code = 2217) 131 MG/DL BUN (test code = 2208) 13 MG/DL CREATININE (test code = 2214) 0.65 MG/DL eGFR AMER. (test code 113 ML/MIN/1.73 = 39222) eGFR NON- AMER. (test 97 ML/MIN/1.73 code = 25290) CALC BUN/CREAT (test code = 20 RATIO [...] (test code = 2219) 23 U/L HEMOGLOBIN [id number] 00:00:00 Test Item Value Reference Range Interpretation Comments HEMOGLOBIN A1c (test code = 26014) 6.8 % HEMOGLOBIN [id number] 00:00:00 Test Item Value Reference Range Interpretation Comments HEMOGLOBIN A1c (test code = 26375) 6.8 % HEMOGLOBIN [id number] 00:00:00 Test Item Value Reference Range Interpretation Comments HEMOGLOBIN A1c (test code = 55981) 6.8 % LIPID [id number] 00:00:00 Test Item Value Reference Range Interpretation Comments CHOLESTEROL (test code = 2210) 303 MG/DL TRIGLYCERIDES (test code = 2232) 191 MG/DL HDL CHOLESTEROL (test code = 2220) 61 MG/DL CALC LDL CHOL (test code = 2237) 205 MG/DL RISK RATIO LDL/HDL (test code = 3.36 RATIO 2238) LIPID [id number] 00:00:00 Test Item Value Reference Range Interpretation Comments CHOLESTEROL (test code = 2210) 303 MG/DL TRIGLYCERIDES (test code = 2232) 191 MG/DL HDL CHOLESTEROL (test code = 2220) 61 MG/DL CALC LDL CHOL (test code = 2237) 205 MG/DL RISK RATIO LDL/HDL (test code = 3.36 RATIO 2238) [id number] 00:00:00 Test Item Value Reference Range Interpretation Comments TSH, THIRD GENERATION (test code 0.769 UIU/ML = 2821) [id number] 00:00:00 Test Item Value Reference Range Interpretation Comments TSH, THIRD GENERATION (test code 0.769 UIU/ML = 2821) [id number] 00:00:00 Test Item Value Reference Range Interpretation Comments TSH, THIRD GENERATION (test code 0.769 UIU/ML = 2821) COMPREHENSIVE METABOLIC [id number] 00:00:00 Test Item Value Reference Range Interpretation Comments GLUCOSE (test code = 2217) 131 MG/DL BUN (test code = 2208) 13 MG/DL CREATININE (test code = 2214) 0.65 MG/DL eGFR AMER. (test code 113 ML/MIN/1.73 = 31653) eGFR NON- AMER. (test 97 ML/MIN/1.73 code = 64537) CALC BUN/CREAT (test code = 20 RATIO [...] code = 2219) 23 U/L COMPREHENSIVE METABOLIC [id number] 00:00:00 Test Item Value Reference Range Interpretation Comments GLUCOSE (test code = 2217) 131 MG/DL BUN (test code = 2208) 13 MG/DL CREATININE (test code = 2214) 0.65 MG/DL eGFR AMER. (test code 113 ML/MIN/1.73 = 04174) eGFR NON- AMER. (test 97 ML/MIN/1.73 code = 47279) CALC BUN/CREAT (test code = 20 RATIO [...] (test code = 2219) 23 U/L HEMOGLOBIN [id number] 00:00:00 Test Item Value Reference Range Interpretation Comments HEMOGLOBIN A1c (test code = 50616) 6.8 % HEMOGLOBIN [id number] 00:00:00 Test Item Value Reference Range Interpretation Comments HEMOGLOBIN A1c (test code = 64724) 6.8 % LIPID [id number] 00:00:00 Test Item Value Reference Range Interpretation Comments CHOLESTEROL (test code = 2210) 303 MG/DL TRIGLYCERIDES (test code = 2232) 191 MG/DL HDL CHOLESTEROL (test code = 2220) 61 MG/DL CALC LDL CHOL (test code = 2237) 205 MG/DL RISK RATIO LDL/HDL (test code = 3.36 RATIO 2238) [id number] 00:00:00 Test Item Value Reference Range Interpretation Comments TSH, THIRD GENERATION (test code 0.769 UIU/ML = 2821) [id number] 00:00:00 Test Item Value Reference Range Interpretation Comments TSH, THIRD GENERATION (test code 0.769 UIU/ML = 2821) COMPREHENSIVE METABOLIC [id number] 00:00:00 Test Item Value Reference Range Interpretation Comments GLUCOSE (test code = 2217) 131 MG/DL BUN (test code = 2208) 13 MG/DL CREATININE (test code = 2214) 0.65 MG/DL eGFR AMER. (test code 113 ML/MIN/1.73 = 55954) eGFR NON- AMER. (test 97 ML/MIN/1.73 code = 28011) CALC BUN/CREAT (test code = 20 RATIO [...] (test code = 2219) 23 U/L HEMOGLOBIN [id number] 00:00:00 Test Item Value Reference Range Interpretation Comments HEMOGLOBIN A1c (test code = 14659) 6.8 % HEMOGLOBIN [id number] 00:00:00 Test Item Value Reference Range Interpretation Comments HEMOGLOBIN A1c (test code = 05944) 6.8 % HEMOGLOBIN [id number] 00:00:00 Test Item Value Reference Range Interpretation Comments HEMOGLOBIN A1c (test code = 06485) 6.8 % LIPID [id number] 00:00:00 Test Item Value Reference Range Interpretation Comments CHOLESTEROL (test code = 2210) 303 MG/DL TRIGLYCERIDES (test code = 2232) 191 MG/DL HDL CHOLESTEROL (test code = 2220) 61 MG/DL CALC LDL CHOL (test code = 2237) 205 MG/DL RISK RATIO LDL/HDL (test code = 3.36 RATIO 2238) LIPID [id number] 00:00:00 Test Item Value Reference Range Interpretation Comments CHOLESTEROL (test code = 2210) 303 MG/DL TRIGLYCERIDES (test code = 2232) 191 MG/DL HDL CHOLESTEROL (test code = 2220) 61 MG/DL CALC LDL CHOL (test code = 2237) 205 MG/DL RISK RATIO LDL/HDL (test code = 3.36 RATIO 2238) [id number] 00:00:00 Test Item Value Reference Range Interpretation Comments TSH, THIRD GENERATION (test code 0.769 UIU/ML = 2821) [id number] 00:00:00 Test Item Value Reference Range Interpretation Comments TSH, THIRD GENERATION (test code 0.769 UIU/ML = 2821) [id number] 00:00:00 Test Item Value Reference Range Interpretation Comments TSH, THIRD GENERATION (test code 0.769 UIU/ML = 2821) COMPREHENSIVE METABOLIC [id number] 00:00:00 Test Item Value Reference Range Interpretation Comments GLUCOSE (test code = 2217) 131 MG/DL BUN (test code = 2208) 13 MG/DL CREATININE (test code = 2214) 0.65 MG/DL eGFR AMER. (test code 113 ML/MIN/1.73 = 49632) eGFR NON- AMER. (test 97 ML/MIN/1.73 code = 16585) CALC BUN/CREAT (test code = 20 RATIO [...] code = 2219) 23 U/L COMPREHENSIVE METABOLIC [id number] 00:00:00 Test Item Value Reference Range Interpretation Comments GLUCOSE (test code = 2217) 131 MG/DL BUN (test code = 2208) 13 MG/DL CREATININE (test code = 2214) 0.65 MG/DL eGFR AMER. (test code 113 ML/MIN/1.73 = 22490) eGFR NON- AMER. (test 97 ML/MIN/1.73 code = 69529) CALC BUN/CREAT (test code = 20 RATIO [...] (test code = 2219) 23 U/L HEMOGLOBIN [id number] 00:00:00 Test Item Value Reference Range Interpretation Comments HEMOGLOBIN A1c (test code = 95570) 6.6 % HEMOGLOBIN [id number] 00:00:00 Test Item Value Reference Range Interpretation Comments HEMOGLOBIN A1c (test code = 15643) 6.6 % HEMOGLOBIN [id number] 00:00:00 Test Item Value Reference Range Interpretation Comments HEMOGLOBIN A1c (test code = 22323) 6.6 % LIPID [id number] 00:00:00 Test Item Value Reference Range Interpretation Comments CHOLESTEROL (test code = 2210) 261 MG/DL TRIGLYCERIDES (test code = 2232) 159 MG/DL HDL CHOLESTEROL (test code = 2220) 82 MG/DL CALC LDL CHOL (test code = 2237) 150 MG/DL RISK RATIO LDL/HDL (test code = 1.83 RATIO 2238) LIPID [id number] 00:00:00 Test Item Value Reference Range Interpretation Comments CHOLESTEROL (test code = 2210) 261 MG/DL TRIGLYCERIDES (test code = 2232) 159 MG/DL HDL CHOLESTEROL (test code = 2220) 82 MG/DL CALC LDL CHOL (test code = 2237) 150 MG/DL RISK RATIO LDL/HDL (test code = 1.83 RATIO 2238) COMPREHENSIVE METABOLIC [id number] 00:00:00 Test Item Value Reference Range Interpretation Comments GLUCOSE (test code = 2217) 144 MG/DL BUN (test code = 2208) 15 MG/DL CREATININE (test code = 2214) 0.85 MG/DL eGFR AMER. (test code 87 ML/MIN/1.73 = 43824) eGFR NON- AMER. (test 75 ML/MIN/1.73 code = 40082) CALC BUN/CREAT (test code = 18 RATIO [...] code = 2219) 50 U/L COMPREHENSIVE METABOLIC [id number] 00:00:00 Test Item Value Reference Range Interpretation Comments GLUCOSE (test code = 2217) 144 MG/DL BUN (test code = 2208) 15 MG/DL CREATININE (test code = 2214) 0.85 MG/DL eGFR AMER. (test code 87 ML/MIN/1.73 = 63187) eGFR NON- AMER. (test 75 ML/MIN/1.73 code = 37032) CALC BUN/CREAT (test code = 18 RATIO [...] THYROX. BIND. CAPAC. (test code 1.1 = 04619) T4 (THYROXINE) (test code = 4.3 UG/DL 2819) CORRECTED T4 (FTI) (test code = 3.9 UG/DL 2820) TSH, THIRD GENERATION (test 18.900 UIU/ML code = 2821) THYROID II PROFILE (T3U, T4, T7, TSH)[id number] 00:00:00 Test Item Value Reference Range Interpretation Comments T-UPTAKE (test code = 2817) 30.2 % THYROX. BIND. CAPAC. (test code 1.1 = 35279) T4 (THYROXINE) (test code = 4.3 UG/DL 2819) CORRECTED T4 (FTI) (test code = 3.9 UG/DL 2820) TSH, THIRD GENERATION (test 18.900 UIU/ML code = 2821) HEMOGLOBIN [id number] 00:00:00 Test Item Value Reference Range Interpretation Comments HEMOGLOBIN A1c (test code = 41985) 6.6 % HEMOGLOBIN [id number] 00:00:00 Test Item Value Reference Range Interpretation Comments HEMOGLOBIN A1c (test code = 87718) 6.6 % HEMOGLOBIN [id number] 00:00:00 Test Item Value Reference Range Interpretation Comments HEMOGLOBIN A1c (test code = 38362) 6.6 % LIPID [id number] 00:00:00 Test Item Value Reference Range Interpretation Comments CHOLESTEROL (test code = 2210) 261 MG/DL TRIGLYCERIDES (test code = 2232) 159 MG/DL HDL CHOLESTEROL (test code = 2220) 82 MG/DL CALC LDL CHOL (test code = 2237) 150 MG/DL RISK RATIO LDL/HDL (test code = 1.83 RATIO 2238) LIPID [id number] 00:00:00 Test Item Value Reference Range Interpretation Comments CHOLESTEROL (test code = 2210) 261 MG/DL TRIGLYCERIDES (test code = 2232) 159 MG/DL HDL CHOLESTEROL (test code = 2220) 82 MG/DL CALC LDL CHOL (test code = 2237) 150 MG/DL RISK RATIO LDL/HDL (test code = 1.83 RATIO 2238) COMPREHENSIVE METABOLIC [id number] 00:00:00 Test Item Value Reference Range Interpretation Comments GLUCOSE (test code = 2217) 144 MG/DL BUN (test code = 2208) 15 MG/DL CREATININE (test code = 2214) 0.85 MG/DL eGFR AMER. (test code 87 ML/MIN/1.73 = 42299) eGFR NON- AMER. (test 75 ML/MIN/1.73 code = 44576) CALC BUN/CREAT (test code = 18 RATIO [...] code = 2219) 50 U/L COMPREHENSIVE METABOLIC [id number] 00:00:00 Test Item Value Reference Range Interpretation Comments GLUCOSE (test code = 2217) 144 MG/DL BUN (test code = 2208) 15 MG/DL CREATININE (test code = 2214) 0.85 MG/DL eGFR AMER. (test code 87 ML/MIN/1.73 = 20050) eGFR NON- AMER. (test 75 ML/MIN/1.73 code = 30726) CALC BUN/CREAT (test code = 18 RATIO [...] THYROX. BIND. CAPAC. (test code 1.1 = 73112) T4 (THYROXINE) (test code = 4.3 UG/DL 2819) CORRECTED T4 (FTI) (test code = 3.9 UG/DL 2820) TSH, THIRD GENERATION (test 18.900 UIU/ML code = 2821) THYROID II PROFILE (T3U, T4, T7, TSH)2020-05-23 00:00:00 Test Item Value Reference Range Interpretation Comments T-UPTAKE (test code = 7) 30.2 % THYROX. BIND. CAPAC. (test code 1.1 = 58734) T4 (THYROXINE) (test code = 4.3 UG/DL 2819) CORRECTED T4 (FTI) (test code = 3.9 UG/DL 2820) TSH, THIRD GENERATION (test 18.900 UIU/ML code = 2821) HEMOGLOBIN [id number] 00:00:00 Test Item Value Reference Range Interpretation Comments HEMOGLOBIN A1c (test code = 28843) 6.6 % HEMOGLOBIN [id number] 00:00:00 Test Item Value Reference Range Interpretation Comments HEMOGLOBIN A1c (test code = 27844) 6.6 % LIPID [id number] 00:00:00 Test Item Value Reference Range Interpretation Comments CHOLESTEROL (test code = 2210) 261 MG/DL TRIGLYCERIDES (test code = 2232) 159 MG/DL HDL CHOLESTEROL (test code = 2220) 82 MG/DL CALC LDL CHOL (test code = 2237) 150 MG/DL RISK RATIO LDL/HDL (test code = 1.83 RATIO 2238) COMPREHENSIVE METABOLIC [id number] 00:00:00 Test Item Value Reference Range Interpretation Comments GLUCOSE (test code = 2217) 144 MG/DL BUN (test code = 2208) 15 MG/DL CREATININE (test code = 2214) 0.85 MG/DL eGFR AMER. (test code 87 ML/MIN/1.73 = 66277) eGFR NON- AMER. (test 75 ML/MIN/1.73 code = 04955) CALC BUN/CREAT (test code = 18 RATIO [...] THYROX. BIND. CAPAC. (test code 1.1 = 06258) T4 (THYROXINE) (test code = 4.3 UG/DL 2819) CORRECTED T4 (FTI) (test code = 3.9 UG/DL 2820) TSH, THIRD GENERATION (test 18.900 UIU/ML code = 2821) HEMOGLOBIN [id number] 00:00:00 Test Item Value Reference Range Interpretation Comments HEMOGLOBIN A1c (test code = 92962) 6.6 % HEMOGLOBIN [id number] 00:00:00 Test Item Value Reference Range Interpretation Comments HEMOGLOBIN A1c (test code = 31328) 6.6 % HEMOGLOBIN [id number] 00:00:00 Test Item Value Reference Range Interpretation Comments HEMOGLOBIN A1c (test code = 18398) 6.6 % LIPID [id number] 00:00:00 Test Item Value Reference Range Interpretation Comments CHOLESTEROL (test code = 2210) 261 MG/DL TRIGLYCERIDES (test code = 2232) 159 MG/DL HDL CHOLESTEROL (test code = 2220) 82 MG/DL CALC LDL CHOL (test code = 2237) 150 MG/DL RISK RATIO LDL/HDL (test code = 1.83 RATIO 2238) LIPID [id number] 00:00:00 Test Item Value Reference Range Interpretation Comments CHOLESTEROL (test code = 2210) 261 MG/DL TRIGLYCERIDES (test code = 2232) 159 MG/DL HDL CHOLESTEROL (test code = 2220) 82 MG/DL CALC LDL CHOL (test code = 2237) 150 MG/DL RISK RATIO LDL/HDL (test code = 1.83 RATIO 2238) COMPREHENSIVE METABOLIC [id number] 00:00:00 Test Item Value Reference Range Interpretation Comments GLUCOSE (test code = 2217) 144 MG/DL BUN (test code = 2208) 15 MG/DL CREATININE (test code = 2214) 0.85 MG/DL eGFR AMER. (test code 87 ML/MIN/1.73 = 50715) eGFR NON- AMER. (test 75 ML/MIN/1.73 code = 62698) CALC BUN/CREAT (test code = 18 RATIO [...] code = 2219) 50 U/L COMPREHENSIVE METABOLIC [id number] 00:00:00 Test Item Value Reference Range Interpretation Comments GLUCOSE (test code = 2217) 144 MG/DL BUN (test code = 2208) 15 MG/DL CREATININE (test code = 2214) 0.85 MG/DL eGFR AMER. (test code 87 ML/MIN/1.73 = 74305) eGFR NON- AMER. (test 75 ML/MIN/1.73 code = 36716) CALC BUN/CREAT (test code = 18 RATIO [...] THYROX. BIND. CAPAC. (test code 1.1 = 05787) T4 (THYROXINE) (test code = 4.3 UG/DL 2819) CORRECTED T4 (FTI) (test code = 3.9 UG/DL 2820) TSH, THIRD GENERATION (test 18.900 UIU/ML code = 2821) THYROID II PROFILE (T3U, T4, T7, TSH)2020-05-23 00:00:00 Test Item Value Reference Range Interpretation Comments T-UPTAKE (test code = 2816) 30.2 % THYROX. BIND. CAPAC. (test code 1.1 = 70861) T4 (THYROXINE) (test code = 4.3 UG/DL 2819) CORRECTED T4 (FTI) (test code = 3.9 UG/DL 2820) TSH, THIRD GENERATION (test 18.900 UIU/ML code = 2821) HEMOGLOBIN [id number] 00:00:00 Test Item Value Reference Range Interpretation Comments HEMOGLOBIN A1c (test code = 37139) 6.7 % HEMOGLOBIN [id number] 00:00:00 Test Item Value Reference Range Interpretation Comments HEMOGLOBIN A1c (test code = 04582) 6.7 % HEMOGLOBIN [id number] 00:00:00 Test Item Value Reference Range Interpretation Comments HEMOGLOBIN A1c (test code = 91683) 6.7 % LIPID [id number] 00:00:00 Test Item Value Reference Range Interpretation Comments CHOLESTEROL (test code = 2210) 267 MG/DL TRIGLYCERIDES (test code = 2232) 137 MG/DL HDL CHOLESTEROL (test code = 2220) 48 MG/DL CALC LDL CHOL (test code = 2237) 192 MG/DL RISK RATIO LDL/HDL (test code = 4.00 RATIO 2238) LIPID [id number] 00:00:00 Test Item Value Reference Range Interpretation Comments CHOLESTEROL (test code = 2210) 267 MG/DL TRIGLYCERIDES (test code = 2232) 137 MG/DL HDL CHOLESTEROL (test code = 2220) 48 MG/DL CALC LDL CHOL (test code = 2237) 192 MG/DL RISK RATIO LDL/HDL (test code = 4.00 RATIO 2238) COMPREHENSIVE METABOLIC [id number] 00:00:00 Test Item Value Reference Range Interpretation Comments GLUCOSE (test code = 2217) 155 MG/DL BUN (test code = 2208) 14 MG/DL CREATININE (test code = 2214) 0.52 MG/DL eGFR AMER. (test code 122 ML/MIN/1.73 = 16462) eGFR NON- AMER. (test 105 ML/MIN/1.73 code = 66514) CALC BUN/CREAT (test code = 27 RATIO [...] code = 2219) 27 U/L COMPREHENSIVE METABOLIC [id number] 00:00:00 Test Item Value Reference Range Interpretation Comments GLUCOSE (test code = 2217) 155 MG/DL BUN (test code = 2208) 14 MG/DL CREATININE (test code = 2214) 0.52 MG/DL eGFR AMER. (test code 122 ML/MIN/1.73 = 47460) eGFR NON- AMER. (test 105 ML/MIN/1.73 code = 56164) CALC BUN/CREAT (test code = 27 RATIO [...] THYROX. BIND. CAPAC. (test code 1.0 = 39623) T4 (THYROXINE) (test code = 4.7 UG/DL 2819) CORRECTED T4 (FTI) (test code = 4.7 UG/DL 2820) TSH, THIRD GENERATION (test code 0.201 UIU/ML = 2821) THYROID II PROFILE (T3U, T4, T7, TSH)2019 00:00:00 Test Item Value Reference Range Interpretation Comments T-UPTAKE (test code = 2817) 33.1 % THYROX. BIND. CAPAC. (test code 1.0 = 85853) T4 (THYROXINE) (test code = 4.7 UG/DL 2819) CORRECTED T4 (FTI) (test code = 4.7 UG/DL 2820) TSH, THIRD GENERATION (test code 0.201 UIU/ML = 2821) HEMOGLOBIN [id number] 00:00:00 Test Item Value Reference Range Interpretation Comments HEMOGLOBIN A1c (test code = 11502) 6.7 % HEMOGLOBIN [id number] 00:00:00 Test Item Value Reference Range Interpretation Comments HEMOGLOBIN A1c (test code = 17178) 6.7 % HEMOGLOBIN [id number] 00:00:00 Test Item Value Reference Range Interpretation Comments HEMOGLOBIN A1c (test code = 76624) 6.7 % LIPID [id number] 00:00:00 Test Item Value Reference Range Interpretation Comments CHOLESTEROL (test code = 2210) 267 MG/DL TRIGLYCERIDES (test code = 2232) 137 MG/DL HDL CHOLESTEROL (test code = 2220) 48 MG/DL CALC LDL CHOL (test code = 2237) 192 MG/DL RISK RATIO LDL/HDL (test code = 4.00 RATIO 2238) LIPID [id number] 00:00:00 Test Item Value Reference Range Interpretation Comments CHOLESTEROL (test code = 2210) 267 MG/DL TRIGLYCERIDES (test code = 2232) 137 MG/DL HDL CHOLESTEROL (test code = 2220) 48 MG/DL CALC LDL CHOL (test code = 2237) 192 MG/DL RISK RATIO LDL/HDL (test code = 4.00 RATIO 2238) COMPREHENSIVE METABOLIC [id number] 00:00:00 Test Item Value Reference Range Interpretation Comments GLUCOSE (test code = 2217) 155 MG/DL BUN (test code = 2208) 14 MG/DL CREATININE (test code = 2214) 0.52 MG/DL eGFR AMER. (test code 122 ML/MIN/1.73 = 82973) eGFR NON- AMER. (test 105 ML/MIN/1.73 code = 99532) CALC BUN/CREAT (test code = 27 RATIO [...] code = 2219) 27 U/L COMPREHENSIVE METABOLIC [id number] 00:00:00 Test Item Value Reference Range Interpretation Comments GLUCOSE (test code = 2217) 155 MG/DL BUN (test code = 2208) 14 MG/DL CREATININE (test code = 2214) 0.52 MG/DL eGFR AMER. (test code 122 ML/MIN/1.73 = 90308) eGFR NON- AMER. (test 105 ML/MIN/1.73 code = 64856) CALC BUN/CREAT (test code = 27 RATIO [...] THYROX. BIND. CAPAC. (test code 1.0 = 59497) T4 (THYROXINE) (test code = 4.7 UG/DL 2819) CORRECTED T4 (FTI) (test code = 4.7 UG/DL 2820) TSH, THIRD GENERATION (test code 0.201 UIU/ML = 2821) THYROID II PROFILE (T3U, T4, T7, TSH)2019 00:00:00 Test Item Value Reference Range Interpretation Comments T-UPTAKE (test code = 2817) 33.1 % THYROX. BIND. CAPAC. (test code 1.0 = 51198) T4 (THYROXINE) (test code = 4.7 UG/DL 2819) CORRECTED T4 (FTI) (test code = 4.7 UG/DL 2820) TSH, THIRD GENERATION (test code 0.201 UIU/ML = 2821) HEMOGLOBIN [id number] 00:00:00 Test Item Value Reference Range Interpretation Comments HEMOGLOBIN A1c (test code = 39369) 6.7 % HEMOGLOBIN [id number] 00:00:00 Test Item Value Reference Range Interpretation Comments HEMOGLOBIN A1c (test code = 91234) 6.7 % LIPID [id number] 00:00:00 Test Item Value Reference Range Interpretation Comments CHOLESTEROL (test code = 2210) 267 MG/DL TRIGLYCERIDES (test code = 2232) 137 MG/DL HDL CHOLESTEROL (test code = 2220) 48 MG/DL CALC LDL CHOL (test code = 2237) 192 MG/DL RISK RATIO LDL/HDL (test code = 4.00 RATIO 2238) COMPREHENSIVE METABOLIC [id number] 00:00:00 Test Item Value Reference Range Interpretation Comments GLUCOSE (test code = 2217) 155 MG/DL BUN (test code = 2208) 14 MG/DL CREATININE (test code = 2214) 0.52 MG/DL eGFR AMER. (test code 122 ML/MIN/1.73 = 66232) eGFR NON- AMER. (test 105 ML/MIN/1.73 code = 83032) CALC BUN/CREAT (test code = 27 RATIO [...] THYROX. BIND. CAPAC. (test code 1.0 = 60030) T4 (THYROXINE) (test code = 4.7 UG/DL 2819) CORRECTED T4 (FTI) (test code = 4.7 UG/DL 2820) TSH, THIRD GENERATION (test code 0.201 UIU/ML = 2821) HEMOGLOBIN [id number] 00:00:00 Test Item Value Reference Range Interpretation Comments HEMOGLOBIN A1c (test code = 17125) 6.7 % HEMOGLOBIN [id number] 00:00:00 Test Item Value Reference Range Interpretation Comments HEMOGLOBIN A1c (test code = 03967) 6.7 % HEMOGLOBIN [id number] 00:00:00 Test Item Value Reference Range Interpretation Comments HEMOGLOBIN A1c (test code = 14585) 6.7 % LIPID [id number] 00:00:00 Test Item Value Reference Range Interpretation Comments CHOLESTEROL (test code = 2210) 267 MG/DL TRIGLYCERIDES (test code = 2232) 137 MG/DL HDL CHOLESTEROL (test code = 2220) 48 MG/DL CALC LDL CHOL (test code = 2237) 192 MG/DL RISK RATIO LDL/HDL (test code = 4.00 RATIO 2238) LIPID [id number] 00:00:00 Test Item Value Reference Range Interpretation Comments CHOLESTEROL (test code = 2210) 267 MG/DL TRIGLYCERIDES (test code = 2232) 137 MG/DL HDL CHOLESTEROL (test code = 2220) 48 MG/DL CALC LDL CHOL (test code = 2237) 192 MG/DL RISK RATIO LDL/HDL (test code = 4.00 RATIO 2238) COMPREHENSIVE METABOLIC [id number] 00:00:00 Test Item Value Reference Range Interpretation Comments GLUCOSE (test code = 2217) 155 MG/DL BUN (test code = 2208) 14 MG/DL CREATININE (test code = 2214) 0.52 MG/DL eGFR AMER. (test code 122 ML/MIN/1.73 = 35975) eGFR NON- AMER. (test 105 ML/MIN/1.73 code = 72223) CALC BUN/CREAT (test code = 27 RATIO [...] code = 2219) 27 U/L COMPREHENSIVE METABOLIC [id number] 00:00:00 Test Item Value Reference Range Interpretation Comments GLUCOSE (test code = 2217) 155 MG/DL BUN (test code = 2208) 14 MG/DL CREATININE (test code = 2214) 0.52 MG/DL eGFR AMER. (test code 122 ML/MIN/1.73 = 43551) eGFR NON- AMER. (test 105 ML/MIN/1.73 code = 66597) CALC BUN/CREAT (test code = 27 RATIO [...] THYROX. BIND. CAPAC. (test code 1.0 = 96106) T4 (THYROXINE) (test code = 4.7 UG/DL 2819) CORRECTED T4 (FTI) (test code = 4.7 UG/DL 2820) TSH, THIRD GENERATION (test code 0.201 UIU/ML = 2821) THYROID II PROFILE (T3U, T4, T7, TSH)2019 00:00:00 Test Item Value Reference Range Interpretation Comments T-UPTAKE (test code = 2817) 33.1 % THYROX. BIND. CAPAC. (test code 1.0 = 40886) T4 (THYROXINE) (test code = 4.7 UG/DL 2819) CORRECTED T4 (FTI) (test code = 4.7 UG/DL 2820) TSH, THIRD GENERATION (test code 0.201 UIU/ML = 2821) SARS-CoV-2 (COVID-19) by RT-PCR (HIGH RISK)2019-09-18 00:00:00 Test Item Value Reference Range Interpretation Comments SARS-CoV-2 INTERPRETATION (test NEGATIVE code = 29235) SOURCE (test code = 04376) NOT SPECIFIED SARS-CoV-2 (COVID-19) by RT-PCR (HIGH RISK)2019-09-18 00:00:00 Test Item Value Reference Range Interpretation Comments SARS-CoV-2 INTERPRETATION (test NEGATIVE code = 96338) SOURCE (test code = 30878) NOT SPECIFIED SARS-CoV-2 (COVID-19) by RT-PCR (HIGH RISK)2019-09-18 00:00:00 Test Item Value Reference Range Interpretation Comments SARS-CoV-2 INTERPRETATION (test NEGATIVE code = 10011) SOURCE (test code = 73296) NOT SPECIFIED SARS-CoV-2 (COVID-19) by RT-PCR (HIGH RISK)2019-09-18 00:00:00 Test Item Value Reference Range Interpretation Comments SARS-CoV-2 INTERPRETATION (test NEGATIVE code = 53571) SOURCE (test code = 46478) NOT SPECIFIED SARS-CoV-2 (COVID-19) by RT-PCR (HIGH RISK)2019-09-18 00:00:00 Test Item Value Reference Range Interpretation Comments SARS-CoV-2 INTERPRETATION (test NEGATIVE code = 74091) SOURCE (test code = 07081) NOT SPECIFIED SARS-CoV-2 (COVID-19) by RT-PCR (HIGH RISK)2019-09-18 00:00:00 Test Item Value Reference Range Interpretation Comments SARS-CoV-2 INTERPRETATION (test NEGATIVE code = 98661) SOURCE (test code = 26321) NOT SPECIFIED SARS-CoV-2 (COVID-19) by RT-PCR (HIGH RISK)2019-09-18 00:00:00 Test Item Value Reference Range Interpretation Comments SARS-CoV-2 INTERPRETATION (test NEGATIVE code = 82070) SOURCE (test code = 55383) NOT SPECIFIED [id number] 00:00:00 Test Item Value Reference Range Interpretation Comments TSH, THIRD GENERATION (test code 2.490 UIU/ML = 2821) [id number] 00:00:00 Test Item Value Reference Range Interpretation Comments TSH, THIRD GENERATION (test code 2.490 UIU/ML = 2821) [id number] 00:00:00 Test Item Value Reference Range Interpretation Comments TSH, THIRD GENERATION (test code 2.490 UIU/ML = 2821) HEMOGLOBIN [id number] 00:00:00 Test Item Value Reference Range Interpretation Comments HEMOGLOBIN A1c (test code = 65384) 6.4 % HEMOGLOBIN [id number] 00:00:00 Test Item Value Reference Range Interpretation Comments HEMOGLOBIN A1c (test code = 02164) 6.4 % HEMOGLOBIN [id number] 00:00:00 Test Item Value Reference Range Interpretation Comments HEMOGLOBIN A1c (test code = 18964) 6.4 % COMPREHENSIVE METABOLIC [id number] 00:00:00 Test Item Value Reference Range Interpretation Comments GLUCOSE (test code = 2217) 206 MG/DL BUN (test code = 2208) 23 MG/DL CREATININE (test code = 2214) 0.67 MG/DL eGFR AMER. (test code 112 ML/MIN/1.73 = 14010) eGFR NON- AMER. (test 97 ML/MIN/1.73 code = 23489) CALC BUN/CREAT (test code = 34 RATIO [...] code = 2219) 25 U/L COMPREHENSIVE METABOLIC [id number] 00:00:00 Test Item Value Reference Range Interpretation Comments GLUCOSE (test code = 2217) 206 MG/DL BUN (test code = 2208) 23 MG/DL CREATININE (test code = 2214) 0.67 MG/DL eGFR AMER. (test code 112 ML/MIN/1.73 = 75771) eGFR NON- AMER. (test 97 ML/MIN/1.73 code = 59955) CALC BUN/CREAT (test code = 34 RATIO [...] ALT (test code = 2219) 25 U/L [id number] 00:00:00 Test Item Value Reference Range Interpretation Comments TSH, THIRD GENERATION (test code 2.490 UIU/ML = 2821) [id number] 00:00:00 Test Item Value Reference Range Interpretation Comments TSH, THIRD GENERATION (test code 2.490 UIU/ML = 2821) [id number] 00:00:00 Test Item Value Reference Range Interpretation Comments TSH, THIRD GENERATION (test code 2.490 UIU/ML = 2821) HEMOGLOBIN [id number] 00:00:00 Test Item Value Reference Range Interpretation Comments HEMOGLOBIN A1c (test code = 75527) 6.4 % HEMOGLOBIN [id number] 00:00:00 Test Item Value Reference Range Interpretation Comments HEMOGLOBIN A1c (test code = 82096) 6.4 % HEMOGLOBIN [id number] 00:00:00 Test Item Value Reference Range Interpretation Comments HEMOGLOBIN A1c (test code = 91900) 6.4 % COMPREHENSIVE METABOLIC [id number] 00:00:00 Test Item Value Reference Range Interpretation Comments GLUCOSE (test code = 2217) 206 MG/DL BUN (test code = 2208) 23 MG/DL CREATININE (test code = 2214) 0.67 MG/DL eGFR AMER. (test code 112 ML/MIN/1.73 = 46235) eGFR NON- AMER. (test 97 ML/MIN/1.73 code = 42968) CALC BUN/CREAT (test code = 34 RATIO [...] code = 2219) 25 U/L COMPREHENSIVE METABOLIC [id number] 00:00:00 Test Item Value Reference Range Interpretation Comments GLUCOSE (test code = 2217) 206 MG/DL BUN (test code = 2208) 23 MG/DL CREATININE (test code = 2214) 0.67 MG/DL eGFR AMER. (test code 112 ML/MIN/1.73 = 61052) eGFR NON- AMER. (test 97 ML/MIN/1.73 code = 11500) CALC BUN/CREAT (test code = 34 RATIO [...] ALT (test code = 2219) 25 U/L [id number] 00:00:00 Test Item Value Reference Range Interpretation Comments TSH, THIRD GENERATION (test code 2.490 UIU/ML = 2821) [id number] 00:00:00 Test Item Value Reference Range Interpretation Comments TSH, THIRD GENERATION (test code 2.490 UIU/ML = 2821) HEMOGLOBIN [id number] 00:00:00 Test Item Value Reference Range Interpretation Comments HEMOGLOBIN A1c (test code = 79561) 6.4 % HEMOGLOBIN [id number] 00:00:00 Test Item Value Reference Range Interpretation Comments HEMOGLOBIN A1c (test code = 33794) 6.4 % COMPREHENSIVE METABOLIC [id number] 00:00:00 Test Item Value Reference Range Interpretation Comments GLUCOSE (test code = 2217) 206 MG/DL BUN (test code = 2208) 23 MG/DL CREATININE (test code = 2214) 0.67 MG/DL eGFR AMER. (test code 112 ML/MIN/1.73 = 95342) eGFR NON- AMER. (test 97 ML/MIN/1.73 code = 09935) CALC BUN/CREAT (test code = 34 RATIO [...] ALT (test code = 2219) 25 U/L [id number] 00:00:00 Test Item Value Reference Range Interpretation Comments TSH, THIRD GENERATION (test code 2.490 UIU/ML = 2821) [id number] 00:00:00 Test Item Value Reference Range Interpretation Comments TSH, THIRD GENERATION (test code 2.490 UIU/ML = 2821) [id number] 00:00:00 Test Item Value Reference Range Interpretation Comments TSH, THIRD GENERATION (test code 2.490 UIU/ML = 2821) HEMOGLOBIN [id number] 00:00:00 Test Item Value Reference Range Interpretation Comments HEMOGLOBIN A1c (test code = 98539) 6.4 % HEMOGLOBIN [id number] 00:00:00 Test Item Value Reference Range Interpretation Comments HEMOGLOBIN A1c (test code = 66433) 6.4 % HEMOGLOBIN [id number] 00:00:00 Test Item Value Reference Range Interpretation Comments HEMOGLOBIN A1c (test code = 60353) 6.4 % COMPREHENSIVE METABOLIC [id number] 00:00:00 Test Item Value Reference Range Interpretation Comments GLUCOSE (test code = 2217) 206 MG/DL BUN (test code = 2208) 23 MG/DL CREATININE (test code = 2214) 0.67 MG/DL eGFR AMER. (test code 112 ML/MIN/1.73 = 05267) eGFR NON- AMER. (test 97 ML/MIN/1.73 code = 50422) CALC BUN/CREAT (test code = 34 RATIO [...] code = 2219) 25 U/L COMPREHENSIVE METABOLIC [id number] 00:00:00 Test Item Value Reference Range Interpretation Comments GLUCOSE (test code = 2217) 206 MG/DL BUN (test code = 2208) 23 MG/DL CREATININE (test code = 2214) 0.67 MG/DL eGFR AMER. (test code 112 ML/MIN/1.73 = 79354) eGFR NON- AMER. (test 97 ML/MIN/1.73 code = 22743) CALC BUN/CREAT (test code = 34 RATIO [...] = 2219) 25 U/L VAGINAL PATHOGENS DNA [id number] 00:00:00 Test Item Value Reference Range Interpretation Comments MARK SPECIES (test code = 72099) NEGATIVE G. VAGINALIS (test code = 94969) NEGATIVE T. VAGINALIS (test code = 46767) NEGATIVE VAGINAL PATHOGENS DNA [id number] 00:00:00 Test Item Value Reference Range Interpretation Comments MARK SPECIES (test code = 75870) NEGATIVE G. VAGINALIS (test code = 26217) NEGATIVE T. VAGINALIS (test code = 32981) NEGATIVE VAGINAL PATHOGENS DNA [id number] 00:00:00 Test Item Value Reference Range Interpretation Comments MARK SPECIES (test code = 74269) NEGATIVE G. VAGINALIS (test code = 18992) NEGATIVE T. VAGINALIS (test code = 08442) NEGATIVE VAGINAL PATHOGENS DNA [id number] 00:00:00 Test Item Value Reference Range Interpretation Comments MARK SPECIES (test code = 58547) NEGATIVE G. VAGINALIS (test code = 58716) NEGATIVE T. VAGINALIS (test code = 02748) NEGATIVE VAGINAL PATHOGENS DNA [id number] 00:00:00 Test Item Value Reference Range Interpretation Comments MARK SPECIES (test code = 47764) NEGATIVE G. VAGINALIS (test code = 57514) NEGATIVE T. VAGINALIS (test code = 30369) NEGATIVE VAGINAL PATHOGENS DNA [id number] 00:00:00 Test Item Value Reference Range Interpretation Comments MARK SPECIES (test code = 03545) NEGATIVE G. VAGINALIS (test code = 60636) NEGATIVE T. VAGINALIS (test code = 25486) NEGATIVE VAGINAL PATHOGENS DNA [id number] 00:00:00 Test Item Value Reference Range Interpretation Comments MARK SPECIES (test code = 41488) NEGATIVE G. VAGINALIS (test code = 02194) NEGATIVE T. VAGINALIS (test code = 15897) NEGATIVE HEMOGLOBIN A1c [ADDED]2018-12-01 00:00:00 Test Item Value Reference Range Interpretation Comments HEMOGLOBIN A1c (test code = 47215) 6.7 % HEMOGLOBIN A1c [ADDED]2018-12-01 00:00:00 Test Item Value Reference Range Interpretation Comments HEMOGLOBIN A1c (test code = 42314) 6.7 % HEMOGLOBIN A1c [ADDED]2018-12-01 00:00:00 Test Item Value Reference Range Interpretation Comments HEMOGLOBIN A1c (test code = 03194) 6.7 % COMPREHENSIVE METABOLIC PANEL [ADDED]2018-12-01 00:00:00 Test Item Value Reference Range Interpretation Comments GLUCOSE (test code = 2217) 136 MG/DL BUN (test code = 2208) 15 MG/DL CREATININE (test code = 2214) 0.64 MG/DL eGFR AMER. (test code 115 ML/MIN/1.73 = 07308) eGFR NON- AMER. (test 99 ML/MIN/1.73 code = 15164) CALC BUN/CREAT (test code = 23 RATIO [...] eGFR AMER. (test code 115 ML/MIN/1.73 = 56427) eGFR NON- AMER. (test 99 ML/MIN/1.73 code = 01533) CALC BUN/CREAT (test code = 23 RATIO [...] Interpretation Comments HEMOGLOBIN A1c (test code = 46808) 6.7 % HEMOGLOBIN A1c [ADDED]2018-12-01 00:00:00 Test Item Value Reference Range Interpretation Comments HEMOGLOBIN A1c (test code = 37859) 6.7 % HEMOGLOBIN A1c [ADDED]2018-12-01 00:00:00 Test Item Value Reference Range Interpretation Comments HEMOGLOBIN A1c (test code = 62530) 6.7 % COMPREHENSIVE METABOLIC PANEL [ADDED]2018-12-01 00:00:00 Test Item Value Reference Range Interpretation Comments GLUCOSE (test code = 2217) 136 MG/DL BUN (test code = 2208) 15 MG/DL CREATININE (test code = 2214) 0.64 MG/DL eGFR AMER. (test code 115 ML/MIN/1.73 = 83386) eGFR NON- AMER. (test 99 ML/MIN/1.73 code = 75182) CALC BUN/CREAT (test code = 23 RATIO [...] eGFR AMER. (test code 115 ML/MIN/1.73 = 46043) eGFR NON- AMER. (test 99 ML/MIN/1.73 code = 24167) CALC BUN/CREAT (test code = 23 RATIO [...] Interpretation Comments HEMOGLOBIN A1c (test code = 43153) 6.7 % HEMOGLOBIN A1c [ADDED]2018-12-01 00:00:00 Test Item Value Reference Range Interpretation Comments HEMOGLOBIN A1c (test code = 28545) 6.7 % COMPREHENSIVE METABOLIC PANEL [ADDED]2018-12-01 00:00:00 Test Item Value Reference Range Interpretation Comments GLUCOSE (test code = 2217) 136 MG/DL BUN (test code = 2208) 15 MG/DL CREATININE (test code = 2214) 0.64 MG/DL eGFR AMER. (test code 115 ML/MIN/1.73 = 81575) eGFR NON- AMER. (test 99 ML/MIN/1.73 code = 57825) CALC BUN/CREAT (test code = 23 RATIO [...] Interpretation Comments HEMOGLOBIN A1c (test code = 38431) 6.7 % HEMOGLOBIN A1c [ADDED]2018-12-01 00:00:00 Test Item Value Reference Range Interpretation Comments HEMOGLOBIN A1c (test code = 73164) 6.7 % HEMOGLOBIN A1c [ADDED]2018-12-01 00:00:00 Test Item Value Reference Range Interpretation Comments HEMOGLOBIN A1c (test code = 29188) 6.7 % COMPREHENSIVE METABOLIC PANEL [ADDED]2018-12-01 00:00:00 Test Item Value Reference Range Interpretation Comments GLUCOSE (test code = 2217) 136 MG/DL BUN (test code = 2208) 15 MG/DL CREATININE (test code = 2214) 0.64 MG/DL eGFR AMER. (test code 115 ML/MIN/1.73 = 91795) eGFR NON- AMER. (test 99 ML/MIN/1.73 code = 37864) CALC BUN/CREAT (test code = 23 RATIO [...] eGFR AMER. (test code 115 ML/MIN/1.73 = 62965) eGFR NON- AMER. (test 99 ML/MIN/1.73 code = 91283) CALC BUN/CREAT (test code = 23 RATIO [...] code 1.280 UIU/ML = 2821) CBC W/AUTO [id number] 00:00:00 Test Item Value Reference Range Interpretation [...] code = 1015) 346 K/UL CBC W/AUTO [id number] 00:00:00 Test Item Value Reference Range Interpretation [...] code = 1015) 346 K/UL CBC W/AUTO [id number] 00:00:00 Test Item Value Reference Range Interpretation [...] (test code = 1015) 346 K/UL HEMOGLOBIN [id number] 00:00:00 Test Item Value Reference Range Interpretation Comments HEMOGLOBIN A1c (test code = 58671) 5.9 % HEMOGLOBIN [id number] 00:00:00 Test Item Value Reference Range Interpretation Comments HEMOGLOBIN A1c (test code = 84861) 5.9 % HEMOGLOBIN [id number] 00:00:00 Test Item Value Reference Range Interpretation Comments HEMOGLOBIN A1c (test code = 80644) 5.9 % LIPID [id number] 00:00:00 Test Item Value Reference Range Interpretation Comments CHOLESTEROL (test code = 2210) 318 MG/DL TRIGLYCERIDES (test code = 2232) 263 MG/DL HDL CHOLESTEROL (test code = 2220) 51 MG/DL CALC LDL CHOL (test code = 2237) 214 MG/DL RISK RATIO LDL/HDL (test code = 4.20 RATIO 2238) LIPID [id number] 00:00:00 Test Item Value Reference Range Interpretation Comments CHOLESTEROL (test code = 2210) 318 MG/DL TRIGLYCERIDES (test code = 2232) 263 MG/DL HDL CHOLESTEROL (test code = 2220) 51 MG/DL CALC LDL CHOL (test code = 2237) 214 MG/DL RISK RATIO LDL/HDL (test code = 4.20 RATIO 2238) COMPREHENSIVE METABOLIC [id number] 00:00:00 Test Item Value Reference Range Interpretation Comments GLUCOSE (test code = 2217) 113 MG/DL BUN (test code = 2208) 18 MG/DL CREATININE (test code = 2214) 0.70 MG/DL eGFR AMER. (test code 111 ML/MIN/1.73 = 87036) eGFR NON- AMER. (test 96 ML/MIN/1.73 code = 64663) CALC BUN/CREAT (test code = 26 RATIO [...] code = 2219) 31 U/L COMPREHENSIVE METABOLIC [id number] 00:00:00 Test Item Value Reference Range Interpretation Comments GLUCOSE (test code = 2217) 113 MG/DL BUN (test code = 2208) 18 MG/DL CREATININE (test code = 2214) 0.70 MG/DL eGFR AMER. (test code 111 ML/MIN/1.73 = 49894) eGFR NON- AMER. (test 96 ML/MIN/1.73 code = 02034) CALC BUN/CREAT (test code = 26 RATIO [...] ALT (test code = 2219) 31 U/L [id number] 00:00:00 Test Item Value Reference Range Interpretation Comments TSH, THIRD GENERATION (test code 2.520 UIU/ML = 2821) [id number] 00:00:00 Test Item Value Reference Range Interpretation Comments TSH, THIRD GENERATION (test code 2.520 UIU/ML = 2821) [id number] 00:00:00 Test Item Value Reference Range Interpretation Comments TSH, THIRD GENERATION (test code 2.520 UIU/ML = 2821) CBC W/AUTO [id number] 00:00:00 Test Item Value Reference Range Interpretation [...] code = 1015) 346 K/UL CBC W/AUTO [id number] 00:00:00 Test Item Value Reference Range Interpretation [...] code = 1015) 346 K/UL CBC W/AUTO [id number] 00:00:00 Test Item Value Reference Range Interpretation [...] (test code = 1015) 346 K/UL HEMOGLOBIN [id number] 00:00:00 Test Item Value Reference Range Interpretation Comments HEMOGLOBIN A1c (test code = 40329) 5.9 % HEMOGLOBIN [id number] 00:00:00 Test Item Value Reference Range Interpretation Comments HEMOGLOBIN A1c (test code = 88385) 5.9 % HEMOGLOBIN [id number] 00:00:00 Test Item Value Reference Range Interpretation Comments HEMOGLOBIN A1c (test code = 25562) 5.9 % LIPID [id number] 00:00:00 Test Item Value Reference Range Interpretation Comments CHOLESTEROL (test code = 2210) 318 MG/DL TRIGLYCERIDES (test code = 2232) 263 MG/DL HDL CHOLESTEROL (test code = 2220) 51 MG/DL CALC LDL CHOL (test code = 2237) 214 MG/DL RISK RATIO LDL/HDL (test code = 4.20 RATIO 2238) LIPID [id number] 00:00:00 Test Item Value Reference Range Interpretation Comments CHOLESTEROL (test code = 2210) 318 MG/DL TRIGLYCERIDES (test code = 2232) 263 MG/DL HDL CHOLESTEROL (test code = 2220) 51 MG/DL CALC LDL CHOL (test code = 2237) 214 MG/DL RISK RATIO LDL/HDL (test code = 4.20 RATIO 2238) COMPREHENSIVE METABOLIC [id number] 00:00:00 Test Item Value Reference Range Interpretation Comments GLUCOSE (test code = 2217) 113 MG/DL BUN (test code = 2208) 18 MG/DL CREATININE (test code = 2214) 0.70 MG/DL eGFR AMER. (test code 111 ML/MIN/1.73 = 19388) eGFR NON- AMER. (test 96 ML/MIN/1.73 code [...] code = 2219) 31 U/L COMPREHENSIVE METABOLIC [id number] 00:00:00 Test Item Value Reference Range Interpretation Comments GLUCOSE (test code = 2217) 113 MG/DL BUN (test code = 2208) 18 MG/DL CREATININE (test code = 2214) 0.70 MG/DL eGFR AMER. (test code 111 ML/MIN/1.73 = 92701) eGFR NON- AMER. (test 96 ML/MIN/1.73 code = 58666) CALC BUN/CREAT (test code = 26 RATIO [...] ALT (test code = 2219) 31 U/L [id number] 00:00:00 Test Item Value Reference Range Interpretation Comments TSH, THIRD GENERATION (test code 2.520 UIU/ML = 2821) [id number] 00:00:00 Test Item Value Reference Range Interpretation Comments TSH, THIRD GENERATION (test code 2.520 UIU/ML = 2821) [id number] 00:00:00 Test Item Value Reference Range Interpretation Comments TSH, THIRD GENERATION (test code 2.520 UIU/ML = 2821) CBC W/AUTO [id number] 00:00:00 Test Item Value Reference Range Interpretation [...] code = 1015) 346 K/UL CBC W/AUTO [id number] 00:00:00 Test Item Value Reference Range Interpretation [...] (test code = 1015) 346 K/UL HEMOGLOBIN [id number] 00:00:00 Test Item Value Reference Range Interpretation Comments HEMOGLOBIN A1c (test code = 75032) 5.9 % HEMOGLOBIN [id number] 00:00:00 Test Item Value Reference Range Interpretation Comments HEMOGLOBIN A1c (test code = 45611) 5.9 % LIPID [id number] 00:00:00 Test Item Value Reference Range Interpretation Comments CHOLESTEROL (test code = 2210) 318 MG/DL TRIGLYCERIDES (test code = 2232) 263 MG/DL HDL CHOLESTEROL (test code = 2220) 51 MG/DL CALC LDL CHOL (test code = 2237) 214 MG/DL RISK RATIO LDL/HDL (test code = 4.20 RATIO 2238) COMPREHENSIVE METABOLIC [id number] 00:00:00 Test Item Value Reference Range Interpretation Comments GLUCOSE (test code = 2217) 113 MG/DL BUN (test code = 2208) 18 MG/DL CREATININE (test code = 2214) 0.70 MG/DL eGFR AMER. (test code 111 ML/MIN/1.73 = 65572) eGFR NON- AMER. (test 96 ML/MIN/1.73 code = 74250) CALC BUN/CREAT (test code = 26 RATIO [...] ALT (test code = 2219) 31 U/L [id number] 00:00:00 Test Item Value Reference Range Interpretation Comments TSH, THIRD GENERATION (test code 2.520 UIU/ML = 2821) [id number] 00:00:00 Test Item Value Reference Range Interpretation Comments TSH, THIRD GENERATION (test code 2.520 UIU/ML = 2821) CBC W/AUTO [id number] 00:00:00 Test Item Value Reference Range Interpretation [...] code = 1015) 346 K/UL CBC W/AUTO [id number] 00:00:00 Test Item Value Reference Range Interpretation [...] code = 1015) 346 K/UL CBC W/AUTO [id number] 00:00:00 Test Item Value Reference Range Interpretation [...] (test code = 1015) 346 K/UL HEMOGLOBIN [id number] 00:00:00 Test Item Value Reference Range Interpretation Comments HEMOGLOBIN A1c (test code = 95433) 5.9 % HEMOGLOBIN [id number] 00:00:00 Test Item Value Reference Range Interpretation Comments HEMOGLOBIN A1c (test code = 08906) 5.9 % HEMOGLOBIN [id number] 00:00:00 Test Item Value Reference Range Interpretation Comments HEMOGLOBIN A1c (test code = 19036) 5.9 % LIPID [id number] 00:00:00 Test Item Value Reference Range Interpretation Comments CHOLESTEROL (test code = 2210) 318 MG/DL TRIGLYCERIDES (test code = 2232) 263 MG/DL HDL CHOLESTEROL (test code = 2220) 51 MG/DL CALC LDL CHOL (test code = 2237) 214 MG/DL RISK RATIO LDL/HDL (test code = 4.20 RATIO 2238) LIPID [id number] 00:00:00 Test Item Value Reference Range Interpretation Comments CHOLESTEROL (test code = 2210) 318 MG/DL TRIGLYCERIDES (test code = 2232) 263 MG/DL HDL CHOLESTEROL (test code = 2220) 51 MG/DL CALC LDL CHOL (test code = 2237) 214 MG/DL RISK RATIO LDL/HDL (test code = 4.20 RATIO 2238) COMPREHENSIVE METABOLIC [id number] 00:00:00 Test Item Value Reference Range Interpretation Comments GLUCOSE (test code = 2217) 113 MG/DL BUN (test code = 2208) 18 MG/DL CREATININE (test code = 2214) 0.70 MG/DL eGFR AMER. (test code 111 ML/MIN/1.73 = 46920) eGFR NON- AMER. (test 96 ML/MIN/1.73 code = 14677) CALC BUN/CREAT (test code = 26 RATIO [...] code = 2219) 31 U/L COMPREHENSIVE METABOLIC [id number] 00:00:00 Test Item Value Reference Range Interpretation Comments GLUCOSE (test code = 2217) 113 MG/DL BUN (test code = 2208) 18 MG/DL CREATININE (test code = 2214) 0.70 MG/DL eGFR AMER. (test code 111 ML/MIN/1.73 = 97507) eGFR NON- AMER. (test 96 ML/MIN/1.73 code = 27141) CALC BUN/CREAT (test code = 26 RATIO [...] ALT (test code = 2219) 31 U/L [id number] 00:00:00 Test Item Value Reference Range Interpretation Comments TSH, THIRD GENERATION (test code 2.520 UIU/ML = 2821) [id number] 00:00:00 Test Item Value Reference Range Interpretation Comments TSH, THIRD GENERATION (test code 2.520 UIU/ML = 2821) [id number] 00:00:00 Test Item Value Reference Range Interpretation Comments TSH, THIRD GENERATION (test code 2.520 UIU/ML = 2821) CULTURE, [id number] 00:00:00 Test Item Value Reference Range Interpretation Comments CULTURE, URINE (test SPECIMEN NUMBER: code = 25719) [id number] CULTURE, [id number] 00:00:00 Test Item Value Reference Range Interpretation Comments CULTURE, URINE (test SPECIMEN NUMBER: code = 90682) [id number] CULTURE, [id number] 00:00:00 Test Item Value Reference Range Interpretation Comments CULTURE, URINE (test SPECIMEN NUMBER: code = 13896) [id number] CULTURE, [id number] 00:00:00 Test Item Value Reference Range Interpretation Comments CULTURE, URINE (test SPECIMEN NUMBER: code = 31971) [id number] CULTURE, [id number] 00:00:00 Test Item Value Reference Range Interpretation Comments CULTURE, URINE (test SPECIMEN NUMBER: code = 64726) [id number] CULTURE, [id number] 00:00:00 Test Item Value Reference Range Interpretation Comments CULTURE, URINE (test SPECIMEN NUMBER: code = 78154) [id number] CULTURE, [id number] 00:00:00 Test Item Value Reference Range Interpretation Comments CULTURE, URINE (test SPECIMEN NUMBER: code = 80739) [id number] CULTURE, [id number] 00:00:00 Test Item Value Reference Range Interpretation Comments CULTURE, URINE (test SPECIMEN NUMBER: code = 44961) [id number] CULTURE, [id number] 00:00:00 Test Item Value Reference Range Interpretation Comments CULTURE, URINE (test SPECIMEN NUMBER: code = 86961) [id number] CULTURE, [id number] 00:00:00 Test Item Value Reference Range Interpretation Comments CULTURE, URINE (test SPECIMEN NUMBER: code = 45195) [id number] CULTURE, [id number] 00:00:00 Test Item Value Reference Range Interpretation Comments CULTURE, URINE (test SPECIMEN NUMBER: code = 03347) [id number] CULTURE, [id number] 00:00:00 Test Item Value Reference Range Interpretation Comments CULTURE, URINE (test SPECIMEN NUMBER: code = 49351) [id number] CULTURE, [id number] 00:00:00 Test Item Value Reference Range Interpretation Comments CULTURE, URINE (test SPECIMEN NUMBER: code = 54430) [id number] CULTURE, [id number] 00:00:00 Test Item Value Reference Range Interpretation Comments CULTURE, URINE (test SPECIMEN NUMBER: code = 14917) [id number] BASIC METABOLIC [id number] 00:00:00 Test Item Value Reference Range Interpretation Comments GLUCOSE (test code = 2217) 135 MG/DL BUN (test code = 2208) 25 MG/DL CREATININE (test code = 2214) 0.76 MG/DL eGFR AMER. (test code 101 ML/MIN/1.73 = 46055) eGFR NON- AMER. (test 87 ML/MIN/1.73 code = 80815) SODIUM (test code = 2231) 139 MEQ/L POTASSIUM (test code = 2228) 4.7 MEQ/L CHLORIDE (test code = 2215) 99 MEQ/L CARBON DIOXIDE (test code = 26 MEQ/L 2206) CALCIUM (test code = 2209) 9.4 MG/DL BASIC METABOLIC [id number] 00:00:00 Test Item Value Reference Range Interpretation Comments GLUCOSE (test code = 2217) 135 MG/DL BUN (test code = 2208) 25 MG/DL CREATININE (test code = 2214) 0.76 MG/DL eGFR AMER. (test code 101 ML/MIN/1.73 = 56978) eGFR NON- AMER. (test 87 ML/MIN/1.73 code = 27963) SODIUM (test code = 2231) 139 MEQ/L POTASSIUM (test code = 2228) 4.7 MEQ/L CHLORIDE (test code = 2215) 99 MEQ/L CARBON DIOXIDE (test code = 26 MEQ/L 2206) CALCIUM (test code = 2209) 9.4 MG/DL LIPID [id number] 00:00:00 Test Item Value Reference Range Interpretation Comments CHOLESTEROL (test code = 2210) 262 MG/DL TRIGLYCERIDES (test code = 2232) 300 MG/DL HDL CHOLESTEROL (test code = 2220) 36 MG/DL CALC LDL CHOL (test code = 2237) 166 MG/DL RISK RATIO LDL/HDL (test code = 4.61 RATIO 2238) LIPID [id number] 00:00:00 Test Item Value Reference Range Interpretation Comments CHOLESTEROL (test code = 2210) 262 MG/DL TRIGLYCERIDES (test code = 2232) 300 MG/DL HDL CHOLESTEROL (test code = 2220) 36 MG/DL CALC LDL CHOL (test code = 2237) 166 MG/DL RISK RATIO LDL/HDL (test code = 4.61 RATIO 2238) HEMOGLOBIN [id number] 00:00:00 Test Item Value Reference Range Interpretation Comments HEMOGLOBIN A1c (test code = 51757) 6.2 % HEMOGLOBIN [id number] 00:00:00 Test Item Value Reference Range Interpretation Comments HEMOGLOBIN A1c (test code = 51057) 6.2 % HEMOGLOBIN [id number] 00:00:00 Test Item Value Reference Range Interpretation Comments HEMOGLOBIN A1c (test code = 11901) 6.2 % [id number] 00:00:00 Test Item Value Reference Range Interpretation Comments TSH, THIRD GENERATION (test code 0.988 UIU/ML = 2821) [id number] 00:00:00 Test Item Value Reference Range Interpretation Comments TSH, THIRD GENERATION (test code 0.988 UIU/ML = 2821) [id number] 00:00:00 Test Item Value Reference Range Interpretation Comments TSH, THIRD GENERATION (test code 0.988 UIU/ML = 2821) BASIC METABOLIC [id number] 00:00:00 Test Item Value Reference Range Interpretation Comments GLUCOSE (test code = 2217) 135 MG/DL BUN (test code = 2208) 25 MG/DL CREATININE (test code = 2214) 0.76 MG/DL eGFR AMER. (test code 101 ML/MIN/1.73 = 46590) eGFR NON- AMER. (test 87 ML/MIN/1.73 code = 53649) SODIUM (test code = 2231) 139 MEQ/L POTASSIUM (test code = 2228) 4.7 MEQ/L CHLORIDE (test code = 2215) 99 MEQ/L CARBON DIOXIDE (test code = 26 MEQ/L 2206) CALCIUM (test code = 2209) 9.4 MG/DL BASIC METABOLIC [id number] 00:00:00 Test Item Value Reference Range Interpretation Comments GLUCOSE (test code = 2217) 135 MG/DL BUN (test code = 2208) 25 MG/DL CREATININE (test code = 2214) 0.76 MG/DL eGFR AMER. (test code 101 ML/MIN/1.73 = 67295) eGFR NON- AMER. (test 87 ML/MIN/1.73 code = 98818) SODIUM (test code = 2231) 139 MEQ/L POTASSIUM (test code = 2228) 4.7 MEQ/L CHLORIDE (test code = 2215) 99 MEQ/L CARBON DIOXIDE (test code = 26 MEQ/L 2206) CALCIUM (test code = 2209) 9.4 MG/DL LIPID [id number] 00:00:00 Test Item Value Reference Range Interpretation Comments CHOLESTEROL (test code = 2210) 262 MG/DL TRIGLYCERIDES (test code = 2232) 300 MG/DL HDL CHOLESTEROL (test code = 2220) 36 MG/DL CALC LDL CHOL (test code = 2237) 166 MG/DL RISK RATIO LDL/HDL (test code = 4.61 RATIO 2238) LIPID [id number] 00:00:00 Test Item Value Reference Range Interpretation Comments CHOLESTEROL (test code = 2210) 262 MG/DL TRIGLYCERIDES (test code = 2232) 300 MG/DL HDL CHOLESTEROL (test code = 2220) 36 MG/DL CALC LDL CHOL (test code = 2237) 166 MG/DL RISK RATIO LDL/HDL (test code = 4.61 RATIO 2238) HEMOGLOBIN [id number] 00:00:00 Test Item Value Reference Range Interpretation Comments HEMOGLOBIN A1c (test code = 60109) 6.2 % HEMOGLOBIN [id number] 00:00:00 Test Item Value Reference Range Interpretation Comments HEMOGLOBIN A1c (test code = 49681) 6.2 % HEMOGLOBIN [id number] 00:00:00 Test Item Value Reference Range Interpretation Comments HEMOGLOBIN A1c (test code = 01807) 6.2 % [id number] 00:00:00 Test Item Value Reference Range Interpretation Comments TSH, THIRD GENERATION (test code 0.988 UIU/ML = 2821) [id number] 00:00:00 Test Item Value Reference Range Interpretation Comments TSH, THIRD GENERATION (test code 0.988 UIU/ML = 2821) [id number] 00:00:00 Test Item Value Reference Range Interpretation Comments TSH, THIRD GENERATION (test code 0.988 UIU/ML = 2821) BASIC METABOLIC [id number] 00:00:00 Test Item Value Reference Range Interpretation Comments GLUCOSE (test code = 2217) 135 MG/DL BUN (test code = 2208) 25 MG/DL CREATININE (test code = 2214) 0.76 MG/DL eGFR AMER. (test code 101 ML/MIN/1.73 = 79843) eGFR NON- AMER. (test 87 ML/MIN/1.73 code = 71583) SODIUM (test code = 2231) 139 MEQ/L POTASSIUM (test code = 2228) 4.7 MEQ/L CHLORIDE (test code = 2215) 99 MEQ/L CARBON DIOXIDE (test code = 26 MEQ/L 2206) CALCIUM (test code = 2209) 9.4 MG/DL LIPID [id number] 00:00:00 Test Item Value Reference Range Interpretation Comments CHOLESTEROL (test code = 2210) 262 MG/DL TRIGLYCERIDES (test code = 2232) 300 MG/DL HDL CHOLESTEROL (test code = 2220) 36 MG/DL CALC LDL CHOL (test code = 2237) 166 MG/DL RISK RATIO LDL/HDL (test code = 4.61 RATIO 2238) HEMOGLOBIN [id number] 00:00:00 Test Item Value Reference Range Interpretation Comments HEMOGLOBIN A1c (test code = 19386) 6.2 % HEMOGLOBIN [id number] 00:00:00 Test Item Value Reference Range Interpretation Comments HEMOGLOBIN A1c (test code = 66799) 6.2 % [id number] 00:00:00 Test Item Value Reference Range Interpretation Comments TSH, THIRD GENERATION (test code 0.988 UIU/ML = 2821) [id number] 00:00:00 Test Item Value Reference Range Interpretation Comments TSH, THIRD GENERATION (test code 0.988 UIU/ML = 2821) BASIC METABOLIC [id number] 00:00:00 Test Item Value Reference Range Interpretation Comments GLUCOSE (test code = 2217) 135 MG/DL BUN (test code = 2208) 25 MG/DL CREATININE (test code = 2214) 0.76 MG/DL eGFR AMER. (test code 101 ML/MIN/1.73 = 89820) eGFR NON- AMER. (test 87 ML/MIN/1.73 code = 88275) SODIUM (test code = 2231) 139 MEQ/L POTASSIUM (test code = 2228) 4.7 MEQ/L CHLORIDE (test code = 2215) 99 MEQ/L CARBON DIOXIDE (test code = 26 MEQ/L 2206) CALCIUM (test code = 2209) 9.4 MG/DL BASIC METABOLIC [id number] 00:00:00 Test Item Value Reference Range Interpretation Comments GLUCOSE (test code = 2217) 135 MG/DL BUN (test code = 2208) 25 MG/DL CREATININE (test code = 2214) 0.76 MG/DL eGFR AMER. (test code 101 ML/MIN/1.73 = 72155) eGFR NON- AMER. (test 87 ML/MIN/1.73 code = 84946) SODIUM (test code = 2231) 139 MEQ/L POTASSIUM (test code = 2228) 4.7 MEQ/L CHLORIDE (test code = 2215) 99 MEQ/L CARBON DIOXIDE (test code = 26 MEQ/L 2206) CALCIUM (test code = 2209) 9.4 MG/DL LIPID [id number] 00:00:00 Test Item Value Reference Range Interpretation Comments CHOLESTEROL (test code = 2210) 262 MG/DL TRIGLYCERIDES (test code = 2232) 300 MG/DL HDL CHOLESTEROL (test code = 2220) 36 MG/DL CALC LDL CHOL (test code = 2237) 166 MG/DL RISK RATIO LDL/HDL (test code = 4.61 RATIO 2238) LIPID [id number] 00:00:00 Test Item Value Reference Range Interpretation Comments CHOLESTEROL (test code = 2210) 262 MG/DL TRIGLYCERIDES (test code = 2232) 300 MG/DL HDL CHOLESTEROL (test code = 2220) 36 MG/DL CALC LDL CHOL (test code = 2237) 166 MG/DL RISK RATIO LDL/HDL (test code = 4.61 RATIO 2238) HEMOGLOBIN [id number] 00:00:00 Test Item Value Reference Range Interpretation Comments HEMOGLOBIN A1c (test code = 74492) 6.2 % HEMOGLOBIN [id number] 00:00:00 Test Item Value Reference Range Interpretation Comments HEMOGLOBIN A1c (test code = 24423) 6.2 % HEMOGLOBIN [id number] 00:00:00 Test Item Value Reference Range Interpretation Comments HEMOGLOBIN A1c (test code = 92273) 6.2 % [id number] 00:00:00 Test Item Value Reference Range Interpretation Comments TSH, THIRD GENERATION (test code 0.988 UIU/ML = 2821) [id number] 00:00:00 Test Item Value Reference Range Interpretation Comments TSH, THIRD GENERATION (test code 0.988 UIU/ML = 2821) [id number] 00:00:00 Test Item Value Reference Range Interpretation Comments TSH, THIRD GENERATION (test code 0.988 UIU/ML = 2821) COMPREHENSIVE METABOLIC [id number] 00:00:00 Test Item Value Reference Range Interpretation Comments GLUCOSE (test code = 2217) 109 MG/DL BUN (test code = 2208) 25 MG/DL CREATININE (test code = 2214) 0.78 MG/DL eGFR AMER. (test code 98 ML/MIN/1.73 = 25601) eGFR NON- AMER. (test 84 ML/MIN/1.73 code = 69810) CALC BUN/CREAT (test code = 32 RATIO [...] code = 2219) 25 U/L COMPREHENSIVE METABOLIC [id number] 00:00:00 Test Item Value Reference Range Interpretation Comments GLUCOSE (test code = 2217) 109 MG/DL BUN (test code = 2208) 25 MG/DL CREATININE (test code = 2214) 0.78 MG/DL eGFR AMER. (test code 98 ML/MIN/1.73 = 64218) eGFR NON- AMER. (test 84 ML/MIN/1.73 code = 61496) CALC BUN/CREAT (test code = 32 RATIO [...] (test code = 2219) 25 U/L LIPID [id number] 00:00:00 Test Item Value Reference Range Interpretation Comments CHOLESTEROL (test code = 2210) 295 MG/DL TRIGLYCERIDES (test code = 2232) 218 MG/DL HDL CHOLESTEROL (test code = 2220) 46 MG/DL CALC LDL CHOL (test code = 2237) 205 MG/DL RISK RATIO LDL/HDL (test code = 4.47 RATIO 2238) LIPID [id number] 00:00:00 Test Item Value Reference Range Interpretation Comments CHOLESTEROL (test code = 2210) 295 MG/DL TRIGLYCERIDES (test code = 2232) 218 MG/DL HDL CHOLESTEROL (test code = 2220) 46 MG/DL CALC LDL CHOL (test code = 2237) 205 MG/DL RISK RATIO LDL/HDL (test code = 4.47 RATIO 2238) HEMOGLOBIN [id number] 00:00:00 Test Item Value Reference Range Interpretation Comments HEMOGLOBIN A1c (test code = 47239) 7.0 % HEMOGLOBIN [id number] 00:00:00 Test Item Value Reference Range Interpretation Comments HEMOGLOBIN A1c (test code = 14158) 7.0 % HEMOGLOBIN [id number] 00:00:00 Test Item Value Reference Range Interpretation Comments HEMOGLOBIN A1c (test code = 08493) 7.0 % [id number] 00:00:00 Test Item Value Reference Range Interpretation Comments TSH, THIRD GENERATION (test code 0.565 UIU/ML = 2821) [id number] 00:00:00 Test Item Value Reference Range Interpretation Comments TSH, THIRD GENERATION (test code 0.565 UIU/ML = 2821) [id number] 00:00:00 Test Item Value Reference Range Interpretation Comments TSH, THIRD GENERATION (test code 0.565 UIU/ML = 2821) COMPREHENSIVE METABOLIC [id number] 00:00:00 Test Item Value Reference Range Interpretation Comments GLUCOSE (test code = 2217) 109 MG/DL BUN (test code = 2208) 25 MG/DL CREATININE (test code = 2214) 0.78 MG/DL eGFR AMER. (test code 98 ML/MIN/1.73 = 10014) eGFR NON- AMER. (test 84 ML/MIN/1.73 code = 58910) CALC BUN/CREAT (test code = 32 RATIO [...] code = 2219) 25 U/L COMPREHENSIVE METABOLIC [id number] 00:00:00 Test Item Value Reference Range Interpretation Comments GLUCOSE (test code = 2217) 109 MG/DL BUN (test code = 2208) 25 MG/DL CREATININE (test code = 2214) 0.78 MG/DL eGFR AMER. (test code 98 ML/MIN/1.73 = 07778) eGFR NON- AMER. (test 84 ML/MIN/1.73 code = 83145) CALC BUN/CREAT (test code = 32 RATIO [...] (test code = 2219) 25 U/L LIPID [id number] 00:00:00 Test Item Value Reference Range Interpretation Comments CHOLESTEROL (test code = 2210) 295 MG/DL TRIGLYCERIDES (test code = 2232) 218 MG/DL HDL CHOLESTEROL (test code = 2220) 46 MG/DL CALC LDL CHOL (test code = 2237) 205 MG/DL RISK RATIO LDL/HDL (test code = 4.47 RATIO 2238) LIPID [id number] 00:00:00 Test Item Value Reference Range Interpretation Comments CHOLESTEROL (test code = 2210) 295 MG/DL TRIGLYCERIDES (test code = 2232) 218 MG/DL HDL CHOLESTEROL (test code = 2220) 46 MG/DL CALC LDL CHOL (test code = 2237) 205 MG/DL RISK RATIO LDL/HDL (test code = 4.47 RATIO 2238) HEMOGLOBIN [id number] 00:00:00 Test Item Value Reference Range Interpretation Comments HEMOGLOBIN A1c (test code = 33178) 7.0 % HEMOGLOBIN [id number] 00:00:00 Test Item Value Reference Range Interpretation Comments HEMOGLOBIN A1c (test code = 21019) 7.0 % HEMOGLOBIN [id number] 00:00:00 Test Item Value Reference Range Interpretation Comments HEMOGLOBIN A1c (test code = 24523) 7.0 % [id number] 00:00:00 Test Item Value Reference Range Interpretation Comments TSH, THIRD GENERATION (test code 0.565 UIU/ML = 2821) [id number] 00:00:00 Test Item Value Reference Range Interpretation Comments TSH, THIRD GENERATION (test code 0.565 UIU/ML = 2821) [id number] 00:00:00 Test Item Value Reference Range Interpretation Comments TSH, THIRD GENERATION (test code 0.565 UIU/ML = 2821) COMPREHENSIVE METABOLIC [id number] 00:00:00 Test Item Value Reference Range Interpretation Comments GLUCOSE (test code = 2217) 109 MG/DL BUN (test code = 2208) 25 MG/DL CREATININE (test code = 2214) 0.78 MG/DL eGFR AMER. (test code 98 ML/MIN/1.73 = 52582) eGFR NON- AMER. (test 84 ML/MIN/1.73 code = 65303) CALC BUN/CREAT (test code = 32 RATIO [...] (test code = 2219) 25 U/L LIPID [id number] 00:00:00 Test Item Value Reference Range Interpretation Comments CHOLESTEROL (test code = 2210) 295 MG/DL TRIGLYCERIDES (test code = 2232) 218 MG/DL HDL CHOLESTEROL (test code = 2220) 46 MG/DL CALC LDL CHOL (test code = 2237) 205 MG/DL RISK RATIO LDL/HDL (test code = 4.47 RATIO 2238) HEMOGLOBIN [id number] 00:00:00 Test Item Value Reference Range Interpretation Comments HEMOGLOBIN A1c (test code = 96389) 7.0 % HEMOGLOBIN [id number] 00:00:00 Test Item Value Reference Range Interpretation Comments HEMOGLOBIN A1c (test code = 23849) 7.0 % [id number] 00:00:00 Test Item Value Reference Range Interpretation Comments TSH, THIRD GENERATION (test code 0.565 UIU/ML = 2821) [id number] 00:00:00 Test Item Value Reference Range Interpretation Comments TSH, THIRD GENERATION (test code 0.565 UIU/ML = 2821) COMPREHENSIVE METABOLIC [id number] 00:00:00 Test Item Value Reference Range Interpretation Comments GLUCOSE (test code = 2217) 109 MG/DL BUN (test code = 2208) 25 MG/DL CREATININE (test code = 2214) 0.78 MG/DL eGFR AMER. (test code 98 ML/MIN/1.73 = 73976) eGFR NON- AMER. (test 84 ML/MIN/1.73 code = 00370) CALC BUN/CREAT (test code = 32 RATIO [...] code = 2219) 25 U/L COMPREHENSIVE METABOLIC [id number] 00:00:00 Test Item Value Reference Range Interpretation Comments GLUCOSE (test code = 2217) 109 MG/DL BUN (test code = 2208) 25 MG/DL CREATININE (test code = 2214) 0.78 MG/DL eGFR AMER. (test code 98 ML/MIN/1.73 = 36521) eGFR NON- AMER. (test 84 ML/MIN/1.73 code = 12377) CALC BUN/CREAT (test code = 32 RATIO [...] (test code = 2219) 25 U/L LIPID [id number] 00:00:00 Test Item Value Reference Range Interpretation Comments CHOLESTEROL (test code = 2210) 295 MG/DL TRIGLYCERIDES (test code = 2232) 218 MG/DL HDL CHOLESTEROL (test code = 2220) 46 MG/DL CALC LDL CHOL (test code = 2237) 205 MG/DL RISK RATIO LDL/HDL (test code = 4.47 RATIO 2238) LIPID [id number] 00:00:00 Test Item Value Reference Range Interpretation Comments CHOLESTEROL (test code = 2210) 295 MG/DL TRIGLYCERIDES (test code = 2232) 218 MG/DL HDL CHOLESTEROL (test code = 2220) 46 MG/DL CALC LDL CHOL (test code = 2237) 205 MG/DL RISK RATIO LDL/HDL (test code = 4.47 RATIO 2238) HEMOGLOBIN [id number] 00:00:00 Test Item Value Reference Range Interpretation Comments HEMOGLOBIN A1c (test code = 97350) 7.0 % HEMOGLOBIN [id number] 00:00:00 Test Item Value Reference Range Interpretation Comments HEMOGLOBIN A1c (test code = 45579) 7.0 % HEMOGLOBIN [id number] 00:00:00 Test Item Value Reference Range Interpretation Comments HEMOGLOBIN A1c (test code = 51677) 7.0 % [id number] 00:00:00 Test Item Value Reference Range Interpretation Comments TSH, THIRD GENERATION (test code 0.565 UIU/ML = 2821) [id number] 00:00:00 Test Item Value Reference Range Interpretation Comments TSH, THIRD GENERATION (test code 0.565 UIU/ML = 2821) [id number] 00:00:00 Test Item Value Reference Range Interpretation Comments TSH, THIRD GENERATION (test code 0.565 UIU/ML = 2821) [id number] 00:00:00 Test Item Value Reference Range Interpretation Comments TSH, THIRD GENERATION (test code 0.379 UIU/ML = 2821) [id number] 00:00:00 Test Item Value Reference Range Interpretation Comments TSH, THIRD GENERATION (test code 0.379 UIU/ML = 2821) [id number] 00:00:00 Test Item Value Reference Range Interpretation Comments TSH, THIRD GENERATION (test code 0.379 UIU/ML = 2821) [id number] 00:00:00 Test Item Value Reference Range Interpretation Comments TSH, THIRD GENERATION (test code 0.379 UIU/ML = 2821) [id number] 00:00:00 Test Item Value Reference Range Interpretation Comments TSH, THIRD GENERATION (test code 0.379 UIU/ML = 2821) [id number] 00:00:00 Test Item Value Reference Range Interpretation Comments TSH, THIRD GENERATION (test code 0.379 UIU/ML = 2821) [id number] 00:00:00 Test Item Value Reference Range Interpretation Comments TSH, THIRD GENERATION (test code 0.379 UIU/ML = 2821) [id number] 00:00:00 Test Item Value Reference Range Interpretation Comments TSH, THIRD GENERATION (test code 0.379 UIU/ML = 2821) [id number] 00:00:00 Test Item Value Reference Range Interpretation Comments TSH, THIRD GENERATION (test code 0.379 UIU/ML = 2821) [id number] 00:00:00 Test Item Value Reference Range Interpretation Comments TSH, THIRD GENERATION (test code 0.379 UIU/ML = 2821) [id number] 00:00:00 Test Item Value Reference Range Interpretation Comments TSH, THIRD GENERATION (test code 0.379 UIU/ML = 2821) CULTURE, [id number] 00:00:00 Test Item Value Reference Range Interpretation Comments CULTURE, URINE (test SPECIMEN NUMBER: code = 30896) [id number] CULTURE, [id number] 00:00:00 Test Item Value Reference Range Interpretation Comments CULTURE, URINE (test SPECIMEN NUMBER: code = 67650) [id number] CULTURE, [id number] 00:00:00 Test Item Value Reference Range Interpretation Comments CULTURE, URINE (test SPECIMEN NUMBER: code = 25314) [id number] CULTURE, [id number] 00:00:00 Test Item Value Reference Range Interpretation Comments CULTURE, URINE (test SPECIMEN NUMBER: code = 15063) [id number] CULTURE, [id number] 00:00:00 Test Item Value Reference Range Interpretation Comments CULTURE, URINE (test SPECIMEN NUMBER: code = 01049) [id number] CULTURE, [id number] 00:00:00 Test Item Value Reference Range Interpretation Comments CULTURE, URINE (test SPECIMEN NUMBER: code = 32832) [id number] CULTURE, [id number] 00:00:00 Test Item Value Reference Range Interpretation Comments CULTURE, URINE (test SPECIMEN NUMBER: code = 55458) [id number] COMPREHENSIVE METABOLIC [id number] 00:00:00 Test Item Value Reference Range Interpretation Comments GLUCOSE (test code = 2217) 128 MG/DL BUN (test code = 2208) 26 MG/DL CREATININE (test code = 2214) 0.92 MG/DL eGFR AMER. (test code 81 ML/MIN/1.73 = 75950) eGFR NON- AMER. (test 70 ML/MIN/1.73 code = 22655) CALC BUN/CREAT (test code = 28 RATIO [...] code = 2219) 29 U/L COMPREHENSIVE METABOLIC [id number] 00:00:00 Test Item Value Reference Range Interpretation Comments GLUCOSE (test code = 2217) 128 MG/DL BUN (test code = 2208) 26 MG/DL CREATININE (test code = 2214) 0.92 MG/DL eGFR AMER. (test code 81 ML/MIN/1.73 = 98358) eGFR NON- AMER. (test 70 ML/MIN/1.73 code = 33102) CALC BUN/CREAT (test code = 28 RATIO [...] code = 2219) 29 U/L ACUTE HEPATITIS [id number] 00:00:00 Test Item Value Reference Range Interpretation Comments HEPATITIS A IgM (test code = NON-REACTIVE 28313) HEPATITIS B CORE IgM (test code NON-REACTIVE = 4726) HEPATITIS B SURF AG (test code = NON-REACTIVE 3544) HEPATITIS C ANTIBODY (test code NON-REACTIVE = 5336) INTERPRETATION HEPATITIS A: (NOTE) (test code = 2552) INTERPRETATION HEPATITIS B: (NOTE) (test code = 55415) INTERPRETATION HEPATITIS C: (NOTE) (test code = 94920) ACUTE HEPATITIS [id number] 00:00:00 Test Item Value Reference Range Interpretation Comments HEPATITIS A IgM (test code = NON-REACTIVE 95408) HEPATITIS B CORE IgM (test code NON-REACTIVE = 4644) HEPATITIS B SURF AG (test code = NON-REACTIVE 1909) HEPATITIS C ANTIBODY (test code NON-REACTIVE = 3520) INTERPRETATION HEPATITIS A: (NOTE) (test code = 2552) INTERPRETATION HEPATITIS B: (NOTE) (test code = 07124) INTERPRETATION HEPATITIS C: (NOTE) (test code = 79251) [id number] 00:00:00 Test Item Value Reference Range Interpretation Comments AMYLASE (test code = 2205) 32 U/L [id number] 00:00:00 Test Item Value Reference Range Interpretation Comments AMYLASE (test code = 2205) 32 U/L [id number] 00:00:00 Test Item Value Reference Range Interpretation Comments LIPASE (test code = 2058) 22 U/L [id number] 00:00:00 Test Item Value Reference Range Interpretation Comments LIPASE (test code = 2058) 22 U/L [id number] 00:00:00 Test Item Value Reference Range Interpretation Comments LIPASE (test code = 2058) 22 U/L COMPREHENSIVE METABOLIC [id number] 00:00:00 Test Item Value Reference Range Interpretation Comments GLUCOSE (test code = 2217) 128 MG/DL BUN (test code = 2208) 26 MG/DL CREATININE (test code = 2214) 0.92 MG/DL eGFR AMER. (test code 81 ML/MIN/1.73 = 36230) eGFR NON- AMER. (test 70 ML/MIN/1.73 code = 89188) CALC BUN/CREAT (test code = 28 RATIO [...] code = 2219) 29 U/L COMPREHENSIVE METABOLIC [id number] 00:00:00 Test Item Value Reference Range Interpretation Comments GLUCOSE (test code = 2217) 128 MG/DL BUN (test code = 2208) 26 MG/DL CREATININE (test code = 2214) 0.92 MG/DL eGFR AMER. (test code 81 ML/MIN/1.73 = 52508) eGFR NON- AMER. (test 70 ML/MIN/1.73 code = 64330) CALC BUN/CREAT (test code = 28 RATIO [...] code = 2219) 29 U/L ACUTE HEPATITIS [id number] 00:00:00 Test Item Value Reference Range Interpretation Comments HEPATITIS A IgM (test code = NON-REACTIVE 86494) HEPATITIS B CORE IgM (test code NON-REACTIVE = 7444) HEPATITIS B SURF AG (test code = NON-REACTIVE 0899) HEPATITIS C ANTIBODY (test code NON-REACTIVE = 4653) INTERPRETATION HEPATITIS A: (NOTE) (test code = 2552) INTERPRETATION HEPATITIS B: (NOTE) (test code = 00780) INTERPRETATION HEPATITIS C: (NOTE) (test code = 39506) ACUTE HEPATITIS [id number] 00:00:00 Test Item Value Reference Range Interpretation Comments HEPATITIS A IgM (test code = NON-REACTIVE 47412) HEPATITIS B CORE IgM (test code NON-REACTIVE = 4644) HEPATITIS B SURF AG (test code = NON-REACTIVE 9909) HEPATITIS C ANTIBODY (test code NON-REACTIVE = 5404) INTERPRETATION HEPATITIS A: (NOTE) (test code = 2552) INTERPRETATION HEPATITIS B: (NOTE) (test code = 15476) INTERPRETATION HEPATITIS C: (NOTE) (test code = 90913) [id number] 00:00:00 Test Item Value Reference Range Interpretation Comments AMYLASE (test code = 2205) 32 U/L [id number] 00:00:00 Test Item Value Reference Range Interpretation Comments AMYLASE (test code = 2205) 32 U/L [id number] 00:00:00 Test Item Value Reference Range Interpretation Comments LIPASE (test code = 2058) 22 U/L [id number] 00:00:00 Test Item Value Reference Range Interpretation Comments LIPASE (test code = 2058) 22 U/L [id number] 00:00:00 Test Item Value Reference Range Interpretation Comments LIPASE (test code = 2058) 22 U/L COMPREHENSIVE METABOLIC [id number] 00:00:00 Test Item Value Reference Range Interpretation Comments GLUCOSE (test code = 2217) 128 MG/DL BUN (test code = 2208) 26 MG/DL CREATININE (test code = 2214) 0.92 MG/DL eGFR AMER. (test code 81 ML/MIN/1.73 = 93025) eGFR NON- AMER. (test 70 ML/MIN/1.73 code = 79664) CALC BUN/CREAT (test code = 28 RATIO [...] code = 2219) 29 U/L ACUTE HEPATITIS [id number] 00:00:00 Test Item Value Reference Range Interpretation Comments HEPATITIS A IgM (test code = NON-REACTIVE 72187) HEPATITIS B CORE IgM (test code NON-REACTIVE = 8644) HEPATITIS B SURF AG (test code = NON-REACTIVE 0691) HEPATITIS C ANTIBODY (test code NON-REACTIVE = 6921) INTERPRETATION HEPATITIS A: (NOTE) (test code = 2552) INTERPRETATION HEPATITIS B: (NOTE) (test code = 31567) INTERPRETATION HEPATITIS C: (NOTE) (test code = 86215) [id number] 00:00:00 Test Item Value Reference Range Interpretation Comments AMYLASE (test code = 2205) 32 U/L [id number] 00:00:00 Test Item Value Reference Range Interpretation Comments LIPASE (test code = 2058) 22 U/L [id number] 00:00:00 Test Item Value Reference Range Interpretation Comments LIPASE (test code = 2058) 22 U/L COMPREHENSIVE METABOLIC [id number] 00:00:00 Test Item Value Reference Range Interpretation Comments GLUCOSE (test code = 2217) 128 MG/DL BUN (test code = 2208) 26 MG/DL CREATININE (test code = 2214) 0.92 MG/DL eGFR AMER. (test code 81 ML/MIN/1.73 = 88109) eGFR NON- AMER. (test 70 ML/MIN/1.73 code = 37286) CALC BUN/CREAT (test code = 28 RATIO [...] code = 2219) 29 U/L COMPREHENSIVE METABOLIC [id number] 00:00:00 Test Item Value Reference Range Interpretation Comments GLUCOSE (test code = 2217) 128 MG/DL BUN (test code = 2208) 26 MG/DL CREATININE (test code = 2214) 0.92 MG/DL eGFR AMER. (test code 81 ML/MIN/1.73 = 40257) eGFR NON- AMER. (test 70 ML/MIN/1.73 code = 14050) CALC BUN/CREAT (test code = 28 RATIO [...] code = 2219) 29 U/L ACUTE HEPATITIS [id number] 00:00:00 Test Item Value Reference Range Interpretation Comments HEPATITIS A IgM (test code = NON-REACTIVE 20987) HEPATITIS B CORE IgM (test code NON-REACTIVE = 4644) HEPATITIS B SURF AG (test code = NON-REACTIVE 6169) HEPATITIS C ANTIBODY (test code NON-REACTIVE = 4605) INTERPRETATION HEPATITIS A: (NOTE) (test code = 2552) INTERPRETATION HEPATITIS B: (NOTE) (test code = 91394) INTERPRETATION HEPATITIS C: (NOTE) (test code = 01280) ACUTE HEPATITIS [id number] 00:00:00 Test Item Value Reference Range Interpretation Comments HEPATITIS A IgM (test code = NON-REACTIVE 83267) HEPATITIS B CORE IgM (test code NON-REACTIVE = 4644) HEPATITIS B SURF AG (test code = NON-REACTIVE 4454) HEPATITIS C ANTIBODY (test code NON-REACTIVE = 4660) INTERPRETATION HEPATITIS A: (NOTE) (test code = 2552) INTERPRETATION HEPATITIS B: (NOTE) (test code = 40516) INTERPRETATION HEPATITIS C: (NOTE) (test code = 89729) [id number] 00:00:00 Test Item Value Reference Range Interpretation Comments AMYLASE (test code = 2205) 32 U/L [id number] 00:00:00 Test Item Value Reference Range Interpretation Comments AMYLASE (test code = 2205) 32 U/L [id number] 00:00:00 Test Item Value Reference Range Interpretation Comments LIPASE (test code = 2058) 22 U/L [id number] 00:00:00 Test Item Value Reference Range Interpretation Comments LIPASE (test code = 2058) 22 U/L [id number] 00:00:00 Test Item Value Reference Range Interpretation Comments LIPASE (test code = 2058) 22 U/L [id number] 00:00:00 Test Item Value Reference Range Interpretation Comments TSH, THIRD GENERATION (test code 4.890 UIU/ML = 2821) [id number] 00:00:00 Test Item Value Reference Range Interpretation Comments TSH, THIRD GENERATION (test code 4.890 UIU/ML = 2821) [id number] 00:00:00 Test Item Value Reference Range Interpretation Comments TSH, THIRD GENERATION (test code 4.890 UIU/ML = 2821) COMPREHENSIVE METABOLIC [id number] 00:00:00 Test Item Value Reference Range Interpretation Comments GLUCOSE (test code = 2217) 121 MG/DL BUN (test code = 2208) 40 MG/DL CREATININE (test code = 2214) 1.48 MG/DL eGFR AMER. (test code 45 ML/MIN/1.73 = 91498) eGFR NON- AMER. (test 39 ML/MIN/1.73 code = 10114) CALC BUN/CREAT (test code = 27 RATIO [...] code = 2219) 20 U/L COMPREHENSIVE METABOLIC [id number] 00:00:00 Test Item Value Reference Range Interpretation Comments GLUCOSE (test code = 2217) 121 MG/DL BUN (test code = 2208) 40 MG/DL CREATININE (test code = 2214) 1.48 MG/DL eGFR AMER. (test code 45 ML/MIN/1.73 = 42821) eGFR NON- AMER. (test 39 ML/MIN/1.73 code = 72210) CALC BUN/CREAT (test code = 27 RATIO [...] ALT (test code = 2219) 20 U/L [id number] 00:00:00 Test Item Value Reference Range Interpretation Comments TSH, THIRD GENERATION (test code 4.890 UIU/ML = 2821) [id number] 00:00:00 Test Item Value Reference Range Interpretation Comments TSH, THIRD GENERATION (test code 4.890 UIU/ML = 2821) [id number] 00:00:00 Test Item Value Reference Range Interpretation Comments TSH, THIRD GENERATION (test code 4.890 UIU/ML = 2821) COMPREHENSIVE METABOLIC [id number] 00:00:00 Test Item Value Reference Range Interpretation Comments GLUCOSE (test code = 2217) 121 MG/DL BUN (test code = 2208) 40 MG/DL CREATININE (test code = 2214) 1.48 MG/DL eGFR AMER. (test code 45 ML/MIN/1.73 = 07168) eGFR NON- AMER. (test 39 ML/MIN/1.73 code = 56284) CALC BUN/CREAT (test code = 27 RATIO [...] code = 2219) 20 U/L COMPREHENSIVE METABOLIC [id number] 00:00:00 Test Item Value Reference Range Interpretation Comments GLUCOSE (test code = 2217) 121 MG/DL BUN (test code = 2208) 40 MG/DL CREATININE (test code = 2214) 1.48 MG/DL eGFR AMER. (test code 45 ML/MIN/1.73 = 18495) eGFR NON- AMER. (test 39 ML/MIN/1.73 code = 43592) CALC BUN/CREAT (test code = 27 RATIO [...] ALT (test code = 2219) 20 U/L [id number] 00:00:00 Test Item Value Reference Range Interpretation Comments TSH, THIRD GENERATION (test code 4.890 UIU/ML = 2821) [id number] 00:00:00 Test Item Value Reference Range Interpretation Comments TSH, THIRD GENERATION (test code 4.890 UIU/ML = 2821) COMPREHENSIVE METABOLIC [id number] 00:00:00 Test Item Value Reference Range Interpretation Comments GLUCOSE (test code = 2217) 121 MG/DL BUN (test code = 2208) 40 MG/DL CREATININE (test code = 2214) 1.48 MG/DL eGFR AMER. (test code 45 ML/MIN/1.73 = 28155) eGFR NON- AMER. (test 39 ML/MIN/1.73 code = 72342) CALC BUN/CREAT (test code = 27 RATIO [...] ALT (test code = 2219) 20 U/L [id number] 00:00:00 Test Item Value Reference Range Interpretation Comments TSH, THIRD GENERATION (test code 4.890 UIU/ML = 2821) [id number] 00:00:00 Test Item Value Reference Range Interpretation Comments TSH, THIRD GENERATION (test code 4.890 UIU/ML = 2821) [id number] 00:00:00 Test Item Value Reference Range Interpretation Comments TSH, THIRD GENERATION (test code 4.890 UIU/ML = 2821) COMPREHENSIVE METABOLIC [id number] 00:00:00 Test Item Value Reference Range Interpretation Comments GLUCOSE (test code = 2217) 121 MG/DL BUN (test code = 2208) 40 MG/DL CREATININE (test code = 2214) 1.48 MG/DL eGFR AMER. (test code 45 ML/MIN/1.73 = 32340) eGFR NON- AMER. (test 39 ML/MIN/1.73 code = 96583) CALC BUN/CREAT (test code = 27 RATIO [...] code = 2219) 20 U/L COMPREHENSIVE METABOLIC [id number] 00:00:00 Test Item Value Reference Range Interpretation Comments GLUCOSE (test code = 2217) 121 MG/DL BUN (test code = 2208) 40 MG/DL CREATININE (test code = 2214) 1.48 MG/DL eGFR AMER. (test code 45 ML/MIN/1.73 = 49858) eGFR NON- AMER. (test 39 ML/MIN/1.73 code = 94435) CALC BUN/CREAT (test code = 27 RATIO [...] (test code = 2219) 20 U/L LIPID [id number] 00:00:00 Test Item Value Reference Range Interpretation Comments CHOLESTEROL (test code = 2210) 261 MG/DL TRIGLYCERIDES (test code = 2232) 165 MG/DL HDL CHOLESTEROL (test code = 2220) 58 MG/DL CALC LDL CHOL (test code = 2237) 170 MG/DL RISK RATIO LDL/HDL (test code = 2.93 RATIO 2238) LIPID [id number] 00:00:00 Test Item Value Reference Range Interpretation Comments CHOLESTEROL (test code = 2210) 261 MG/DL TRIGLYCERIDES (test code = 2232) 165 MG/DL HDL CHOLESTEROL (test code = 2220) 58 MG/DL CALC LDL CHOL (test code = 2237) 170 MG/DL RISK RATIO LDL/HDL (test code = 2.93 RATIO 2238) CBC W/AUTO [id number] 00:00:00 Test Item Value Reference Range Interpretation [...] code = 1015) 378 K/UL CBC W/AUTO [id number] 00:00:00 Test Item Value Reference Range Interpretation [...] code = 1015) 378 K/UL CBC W/AUTO [id number] 00:00:00 Test Item Value Reference Range Interpretation [...] (test code = 1015) 378 K/UL HEMOGLOBIN [id number] 00:00:00 Test Item Value Reference Range Interpretation Comments HEMOGLOBIN A1c (test code = 12631) 6.4 % HEMOGLOBIN [id number] 00:00:00 Test Item Value Reference Range Interpretation Comments HEMOGLOBIN A1c (test code = 74991) 6.4 % HEMOGLOBIN [id number] 00:00:00 Test Item Value Reference Range Interpretation Comments HEMOGLOBIN A1c (test code = 16926) 6.4 % [id number] 00:00:00 Test Item Value Reference Range Interpretation Comments TSH (test code = 2821) 5.290 UIU/ML [id number] 00:00:00 Test Item Value Reference Range Interpretation Comments TSH (test code = 2821) 5.290 UIU/ML [id number] 00:00:00 Test Item Value Reference Range Interpretation Comments TSH (test code = 2821) 5.290 UIU/ML LIPID [id number] 00:00:00 Test Item Value Reference Range Interpretation Comments CHOLESTEROL (test code = 2210) 261 MG/DL TRIGLYCERIDES (test code = 2232) 165 MG/DL HDL CHOLESTEROL (test code = 2220) 58 MG/DL CALC LDL CHOL (test code = 2237) 170 MG/DL RISK RATIO LDL/HDL (test code = 2.93 RATIO 2238) LIPID [id number] 00:00:00 Test Item Value Reference Range Interpretation Comments CHOLESTEROL (test code = 2210) 261 MG/DL TRIGLYCERIDES (test code = 2232) 165 MG/DL HDL CHOLESTEROL (test code = 2220) 58 MG/DL CALC LDL CHOL (test code = 2237) 170 MG/DL RISK RATIO LDL/HDL (test code = 2.93 RATIO 2238) CBC W/AUTO [id number] 00:00:00 Test Item Value Reference Range Interpretation [...] code = 1015) 378 K/UL CBC W/AUTO [id number] 00:00:00 Test Item Value Reference Range Interpretation [...] code = 1015) 378 K/UL CBC W/AUTO [id number] 00:00:00 Test Item Value Reference Range Interpretation [...] (test code = 1015) 378 K/UL HEMOGLOBIN [id number] 00:00:00 Test Item Value Reference Range Interpretation Comments HEMOGLOBIN A1c (test code = 05654) 6.4 % HEMOGLOBIN [id number] 00:00:00 Test Item Value Reference Range Interpretation Comments HEMOGLOBIN A1c (test code = 94672) 6.4 % HEMOGLOBIN [id number] 00:00:00 Test Item Value Reference Range Interpretation Comments HEMOGLOBIN A1c (test code = 80890) 6.4 % [id number] 00:00:00 Test Item Value Reference Range Interpretation Comments TSH (test code = 2821) 5.290 UIU/ML [id number] 00:00:00 Test Item Value Reference Range Interpretation Comments TSH (test code = 2821) 5.290 UIU/ML [id number] 00:00:00 Test Item Value Reference Range Interpretation Comments TSH (test code = 2821) 5.290 UIU/ML LIPID [id number] 00:00:00 Test Item Value Reference Range Interpretation Comments CHOLESTEROL (test code = 2210) 261 MG/DL TRIGLYCERIDES (test code = 2232) 165 MG/DL HDL CHOLESTEROL (test code = 2220) 58 MG/DL CALC LDL CHOL (test code = 2237) 170 MG/DL RISK RATIO LDL/HDL (test code = 2.93 RATIO 2238) CBC W/AUTO [id number] 00:00:00 Test Item Value Reference Range Interpretation [...] code = 1015) 378 K/UL CBC W/AUTO [id number] 00:00:00 Test Item Value Reference Range Interpretation [...] (test code = 1015) 378 K/UL HEMOGLOBIN [id number] 00:00:00 Test Item Value Reference Range Interpretation Comments HEMOGLOBIN A1c (test code = 84418) 6.4 % HEMOGLOBIN [id number] 00:00:00 Test Item Value Reference Range Interpretation Comments HEMOGLOBIN A1c (test code = 11337) 6.4 % [id number] 00:00:00 Test Item Value Reference Range Interpretation Comments TSH (test code = 2821) 5.290 UIU/ML [id number] 00:00:00 Test Item Value Reference Range Interpretation Comments TSH (test code = 2821) 5.290 UIU/ML LIPID [id number] 00:00:00 Test Item Value Reference Range Interpretation Comments CHOLESTEROL (test code = 2210) 261 MG/DL TRIGLYCERIDES (test code = 2232) 165 MG/DL HDL CHOLESTEROL (test code = 2220) 58 MG/DL CALC LDL CHOL (test code = 2237) 170 MG/DL RISK RATIO LDL/HDL (test code = 2.93 RATIO 2238) LIPID [id number] 00:00:00 Test Item Value Reference Range Interpretation Comments CHOLESTEROL (test code = 2210) 261 MG/DL TRIGLYCERIDES (test code = 2232) 165 MG/DL HDL CHOLESTEROL (test code = 2220) 58 MG/DL CALC LDL CHOL (test code = 2237) 170 MG/DL RISK RATIO LDL/HDL (test code = 2.93 RATIO 2238) CBC W/AUTO [id number] 00:00:00 Test Item Value Reference Range Interpretation [...] code = 1015) 378 K/UL CBC W/AUTO [id number] 00:00:00 Test Item Value Reference Range Interpretation [...] code = 1015) 378 K/UL CBC W/AUTO [id number] 00:00:00 Test Item Value Reference Range Interpretation [...] (test code = 1015) 378 K/UL HEMOGLOBIN [id number] 00:00:00 Test Item Value Reference Range Interpretation Comments HEMOGLOBIN A1c (test code = 83643) 6.4 % HEMOGLOBIN [id number] 00:00:00 Test Item Value Reference Range Interpretation Comments HEMOGLOBIN A1c (test code = 30284) 6.4 % HEMOGLOBIN [id number] 00:00:00 Test Item Value Reference Range Interpretation Comments HEMOGLOBIN A1c (test code = 44979) 6.4 % [id number] 00:00:00 Test Item Value Reference Range Interpretation Comments TSH (test code = 2821) 5.290 UIU/ML [id number] 00:00:00 Test Item Value Reference Range Interpretation Comments TSH (test code = 2821) 5.290 UIU/ML [id number] 00:00:00 Test Item Value Reference Range Interpretation [...] code = 2821) 1.030 UIU/ML COMPREHENSIVE METABOLIC [id number] 00:00:00 Test Item Value Reference Range Interpretation Comments GLUCOSE (test code = 2217) 106 MG/DL BUN (test code = 2208) 23 MG/DL CREATININE (test code = 2214) 0.66 MG/DL eGFR AMER. (test code 114 ML/MIN/1.73 = 92507) eGFR NON- AMER. (test 99 ML/MIN/1.73 code = 18815) CALC BUN/CREAT (test code = 35 RATIO [...] code = 2219) 31 U/L COMPREHENSIVE METABOLIC [id number] 00:00:00 Test Item Value Reference Range Interpretation Comments GLUCOSE (test code = 2217) 106 MG/DL BUN (test code = 2208) 23 MG/DL CREATININE (test code = 2214) 0.66 MG/DL eGFR AMER. (test code 114 ML/MIN/1.73 = 50826) eGFR NON- AMER. (test 99 ML/MIN/1.73 code = 53466) CALC BUN/CREAT (test code = 35 RATIO [...] code = 2821) 0.335 UIU/ML COMPREHENSIVE METABOLIC [id number] 00:00:00 Test Item Value Reference Range Interpretation Comments GLUCOSE (test code = 2217) 106 MG/DL BUN (test code = 2208) 23 MG/DL CREATININE (test code = 2214) 0.66 MG/DL eGFR AMER. (test code 114 ML/MIN/1.73 = 03062) eGFR NON- AMER. (test 99 ML/MIN/1.73 code = 49717) CALC BUN/CREAT (test code = 35 RATIO [...] code = 2219) 31 U/L COMPREHENSIVE METABOLIC [id number] 00:00:00 Test Item Value Reference Range Interpretation Comments GLUCOSE (test code = 2217) 106 MG/DL BUN (test code = 2208) 23 MG/DL CREATININE (test code = 2214) 0.66 MG/DL eGFR AMER. (test code 114 ML/MIN/1.73 = 34341) eGFR NON- AMER. (test 99 ML/MIN/1.73 code = 19727) CALC BUN/CREAT (test code = 35 RATIO [...] code = 2821) 0.335 UIU/ML COMPREHENSIVE METABOLIC [id number] 00:00:00 Test Item Value Reference Range Interpretation Comments GLUCOSE (test code = 2217) 106 MG/DL BUN (test code = 2208) 23 MG/DL CREATININE (test code = 2214) 0.66 MG/DL eGFR AMER. (test code 114 ML/MIN/1.73 = 62269) eGFR NON- AMER. (test 99 ML/MIN/1.73 code = 57001) CALC BUN/CREAT (test code = 35 RATIO [...] code = 2821) 0.335 UIU/ML COMPREHENSIVE METABOLIC [id number] 00:00:00 Test Item Value Reference Range Interpretation Comments GLUCOSE (test code = 2217) 106 MG/DL BUN (test code = 2208) 23 MG/DL CREATININE (test code = 2214) 0.66 MG/DL eGFR AMER. (test code 114 ML/MIN/1.73 = 79680) eGFR NON- AMER. (test 99 ML/MIN/1.73 code = 20980) CALC BUN/CREAT (test code = 35 RATIO [...] code = 2219) 31 U/L COMPREHENSIVE METABOLIC [id number] 00:00:00 Test Item Value Reference Range Interpretation Comments GLUCOSE (test code = 2217) 106 MG/DL BUN (test code = 2208) 23 MG/DL CREATININE (test code = 2214) 0.66 MG/DL eGFR AMER. (test code 114 ML/MIN/1.73 = 90419) eGFR NON- AMER. (test 99 ML/MIN/1.73 code = 71304) CALC BUN/CREAT (test code = 35 RATIO [...] CALCULATED T7 (FTI) (test code = 1.71 4180) TSH (test code = 2821) 0.335 UIU/ML THYROID II PROFILE (T3U, T4, T7, [id number] 00:00:00 Test Item Value Reference Range Interpretation Comments T3 UPTAKE (test code = 2817) 31.6 % T4 (THYROXINE) (test code = 5.4 UG/DL 2818) CALCULATED T7 (FTI) (test code = 1.71 2820) TSH (test code = 2821) 0.335 UIU/ML COMPREHENSIVE METABOLIC [id number] 00:00:00 Test Item Value Reference Range Interpretation Comments GLUCOSE (test code = 2217) 103 MG/DL BUN (test code = 2208) 15 MG/DL CREATININE (test code = 2214) 0.77 MG/DL eGFR AMER. (test code 101 ML/MIN/1.73 = 67467) eGFR NON- AMER. (test 87 ML/MIN/1.73 code = 14626) CALC BUN/CREAT (test code = 19 RATIO [...] code = 2219) 24 U/L COMPREHENSIVE METABOLIC [id number] 00:00:00 Test Item Value Reference Range Interpretation Comments GLUCOSE (test code = 2217) 103 MG/DL BUN (test code = 2208) 15 MG/DL CREATININE (test code = 2214) 0.77 MG/DL eGFR AMER. (test code 101 ML/MIN/1.73 = 46925) eGFR NON- AMER. (test 87 ML/MIN/1.73 code = 75244) CALC BUN/CREAT (test code = 19 RATIO [...] code = 2821) 0.424 UIU/ML COMPREHENSIVE METABOLIC [id number] 00:00:00 Test Item Value Reference Range Interpretation Comments GLUCOSE (test code = 2217) 103 MG/DL BUN (test code = 2208) 15 MG/DL CREATININE (test code = 2214) 0.77 MG/DL eGFR AMER. (test code 101 ML/MIN/1.73 = 18047) eGFR NON- AMER. (test 87 ML/MIN/1.73 code = 32176) CALC BUN/CREAT (test code = 19 RATIO [...] code = 2219) 24 U/L COMPREHENSIVE METABOLIC [id number] 00:00:00 Test Item Value Reference Range Interpretation Comments GLUCOSE (test code = 2217) 103 MG/DL BUN (test code = 2208) 15 MG/DL CREATININE (test code = 2214) 0.77 MG/DL eGFR AMER. (test code 101 ML/MIN/1.73 = 14466) eGFR NON- AMER. (test 87 ML/MIN/1.73 code = 99218) CALC BUN/CREAT (test code = 19 RATIO [...] code = 2821) 0.424 UIU/ML COMPREHENSIVE METABOLIC [id number] 00:00:00 Test Item Value Reference Range Interpretation Comments GLUCOSE (test code = 2217) 103 MG/DL BUN (test code = 2208) 15 MG/DL CREATININE (test code = 2214) 0.77 MG/DL eGFR AMER. (test code 101 ML/MIN/1.73 = 60357) eGFR NON- AMER. (test 87 ML/MIN/1.73 code = 77001) CALC BUN/CREAT (test code = 19 RATIO [...] code = 2821) 0.424 UIU/ML COMPREHENSIVE METABOLIC [id number] 00:00:00 Test Item Value Reference Range Interpretation Comments GLUCOSE (test code = 2217) 103 MG/DL BUN (test code = 2208) 15 MG/DL CREATININE (test code = 2214) 0.77 MG/DL eGFR AMER. (test code 101 ML/MIN/1.73 = 09322) eGFR NON- AMER. (test 87 ML/MIN/1.73 code = 72925) CALC BUN/CREAT (test code = 19 RATIO [...] code = 2219) 24 U/L COMPREHENSIVE METABOLIC [id number] 00:00:00 Test Item Value Reference Range Interpretation Comments GLUCOSE (test code = 2217) 103 MG/DL BUN (test code = 2208) 15 MG/DL CREATININE (test code = 2214) 0.77 MG/DL eGFR AMER. (test code 101 ML/MIN/1.73 = 73687) eGFR NON- AMER. (test 87 ML/MIN/1.73 code = 84957) CALC BUN/CREAT (test code = 19 RATIO [...] (test code = 2821) 0.424 UIU/ML CULTURE, [id number] 00:00:00 Test Item Value Reference Range Interpretation Comments CULTURE, URINE (test SPECIMEN NUMBER: code = 03300) [id number] CULTURE, [id number] 00:00:00 Test Item Value Reference Range Interpretation Comments CULTURE, URINE (test SPECIMEN NUMBER: code = 21065) [id number] CULTURE, [id number] 00:00:00 Test Item Value Reference Range Interpretation Comments CULTURE, URINE (test SPECIMEN NUMBER: code = 79853) [id number] CULTURE, [id number] 00:00:00 Test Item Value Reference Range Interpretation Comments CULTURE, URINE (test SPECIMEN NUMBER: code = 35474) [id number] CULTURE, [id number] 00:00:00 Test Item Value Reference Range Interpretation Comments CULTURE, URINE (test SPECIMEN NUMBER: code = 50798) [id number] CULTURE, [id number] 00:00:00 Test Item Value Reference Range Interpretation Comments CULTURE, URINE (test SPECIMEN NUMBER: code = 66978) [id number] CULTURE, [id number] 00:00:00 Test Item Value Reference Range Interpretation Comments CULTURE, URINE (test SPECIMEN NUMBER: code = 40330) [id number] CULTURE, [id number] 00:00:00 Test Item Value Reference Range Interpretation Comments CULTURE, URINE (test SPECIMEN NUMBER: code = 91926) [id number] CULTURE, [id number] 00:00:00 Test Item Value Reference Range Interpretation Comments CULTURE, URINE (test SPECIMEN NUMBER: code = 33406) [id number] CULTURE, [id number] 00:00:00 Test Item Value Reference Range Interpretation Comments CULTURE, URINE (test SPECIMEN NUMBER: code = 64152) [id number] CULTURE, [id number] 00:00:00 Test Item Value Reference Range Interpretation Comments CULTURE, URINE (test SPECIMEN NUMBER: code = 11189) [id number] CULTURE, [id number] 00:00:00 Test Item Value Reference Range Interpretation Comments CULTURE, URINE (test SPECIMEN NUMBER: code = 72476) [id number] CULTURE, [id number] 00:00:00 Test Item Value Reference Range Interpretation Comments CULTURE, URINE (test SPECIMEN NUMBER: code = 03406) [id number] CULTURE, [id number] 00:00:00 Test Item Value Reference Range Interpretation Comments CULTURE, URINE (test SPECIMEN NUMBER: code = 50897) [id number]
--- NOTE | 2022-07-01 10:05 | RAD REPORT ---
EXAM DESCRIPTION: CT - Head Brain Wo Cont - 07/01/2022 9:41 am CLINICAL HISTORY: fall, head injury COMPARISON: < 06/30/2022 > TECHNIQUE: Noncontrast head CT images ad were obtained without IV contrast. Multiplanar reformats we re generated and reviewed. All CT scans are performed using dose optimization technique as appropriate and may include automated exposure control or mA/KV adjustment according to patient size. FINDINGS: No intracranial hemorrhage, mass, or edema. Midline structures are unremarkable. Stable ventricular caliber. Mild diffuse parenchymal volume loss again noted. Ramirez-white matter differentiation is preserved, without evidence of acute infarct. No abnormal extra- axial fluid collections. Mastoid air cells are well aerated. Scattered mild inflammatory mucosal thickening particularly in th e maxillary sinuses and. Maxilla is edentulous. . No acute bony findings. IMPRESSION: No evidence of an acute intracranial process.
--- NOTE | 2022-07-01 10:09 | RAD REPORT ---
EXAM DESCRIPTION: RADChest Single View07/01/2022 9:57 am CLINICAL HISTORY: fall COMPARISON: Chest Single View dated 06/30/2022; Abdomen Acute Series dated 05/05/2022; Chest Single Vi ew dated 02/08/2022; Chest Single View dated 12/28/2021 TECHNIQUE: Portable AP view of the chest. FINDINGS: The lungs are clear.Stable diffuse interstitial coarsening and hyperlucency suggestive of COPD. No pneumothorax or effusion. The cardiomediastinal contours are unremarkable. IMPRESSION: No acute cardiopulmonary process.
[2022-07-01 10:15] LABS: Absolute Lymphocytes (CBC) 1.1 K/uL (0.7-4.9); Hematocrit 38.4 % (36.0-45.0); Lymphocytes % 15.4 % (15.3-44.8); MCV 89.9 fL (80-100); MPV 6.6 fL (7.6-11.3); RBC Red Blood Cell Count 4.28 M/uL (3.86-4.86)
[2022-07-01] MEDS ORDERED: ONDANSETRON 4 MG/2 ML VIAL ONE (10:16)
[2022-07-01] MEDS ORDERED: NA CHLORIDE 0.9% 500 ML ONE (10:16)
[2022-07-01 10:20] LABS: Albumin 3.8 g/dL (3.4-5.0); Bilirubin Direct 0.1 mg/dL (0-0.2); Bilirubin Total 0.3 mg/dL (0.2-1.0); Protein, Total 7.9 g/dL (6.4-8.2); Troponin High Sensitivity 5.9 pg/mL (<58.9)
--- NOTE | 2022-07-01 10:41 | EDPHYS ---
Physician Documentation [facility] Name: Jaimie Amanda Age: 61 yrs Sex: Female : 1960 Arrival Date: 07/01/2022 Time: 09:21 Bed 7 Private MD: ED Physician Villa Byrd HPI: 07/01 09:26 This 61 yrs old Female presents to ER via Unassigned with complaints of AMS, fall. rn 09:26 The patient presents with confusion. Onset: The symptoms/episode began/occurred at an rn unknown time. Possible causes: unknown. Current symptoms: In the emergency department the patient's symptoms are unchanged from the initial presentation. The patient has experienced similar episodes in the past. The patient has been recently seen at the [facility]. EMS reports AMS, admitted yesterday, left AMA, returns with trouble walking, confusion, and fall with head injury. Denies LOC. Reports headache. NO injury to extremities. . Historical: - Allergies: 13:42 No Known Allergies; iw - PMHx: 10:09 Anxiety; Chronic Abdominal Pain; Hypertensive disorder; Hypothyroidism; low NA; NIDDM; iw - PSHx: 10:09 Thyroidectomy; iw - Family history:: not pertinent. - Hospitalizations: : The patient was recently seen at [facility]. ROS: 09:26 Constitutional: Negative for fever, chills, and weight loss, Eyes: Negative for injury, rn pain, redness, and discharge, Neck: Negative for injury, pain, and swelling, Cardiovascular: Negative for chest pain, palpitations, and edema, Respiratory: Negative for shortness of breath, cough, wheezing, and pleuritic chest pain, Abdomen/GI: + nausea/vomiting Back: Negative for injury and pain, MS/Extremity: Negative for injury and deformity, Skin: Negative for injury, rash, and discoloration, Neuro: Negative for numbness, tingling, and seizure. Exam: 09:26 Constitutional: This is a well developed, well nourished patient who is awake, slurred rn speech, holding emesis bag Head/Face: Normocephalic, atraumatic. Eyes: Pupils equal round and reactive to light, extra-ocular motions intact. ENT: dry MM Neck: No midline cervical tenderness Cardiovascular: Regular rate and rhythm. No pulse deficits. Respiratory: No increased work of breathing, no retractions or nasal flaring. Abdomen/GI: Soft, non-tender Back: No spinal tenderness. No costovertebral tenderness. Full range of motion. Skin: Warm, dry MS/ Extremity: Pulses equal, no cyanosis. Neuro: Awake and alert, GCS 15, oriented to person, place, and situation. Cranial nerves II-XII grossly intact. Motor strength 4/5 in all extremities. Sensory grossly intact. Cerebellar exam normal. 10:00 ECG was reviewed by the Attending Physician. rn Vital Signs: : BP 138 / 80; Pulse 83; Resp 16; Temp 98.1; Pulse Ox 95% on R/A; iw MDM: 09:22 Patient medically screened. rn 10:38 Differential Diagnosis: CVA, electrolyte abnormality, hypoglycemia, intracranial bleed, rn UTI, volume depletion. Data reviewed: vital signs, nurses notes, lab test result(s), EKG, radiologic studies, CT scan, plain films, and as a result, I will discharge patient. Consideration of Admission/Observation Patient was admitted/placed on observation. Escalation of care including admission/observation considered. Independent interpretation of the following test(s) in the Emergency Department EKG: See my EKG interpretation above X-Ray: My interpretation is CXR images neg for pneumonia/pneumothorax per my interpretation. Counseling: I had a detailed discussion with the patient and/or guardian regarding: the historical points, exam findings, and any diagnostic results supporting the discharge/admit diagnosis, lab results, radiology results, the need for further work-up and treatment in the hospital. Response to treatment: There is no appreciated change of the patient's symptoms at this time, and as a result, I will admit patient. 07/01 09:23 Order name: Basic Metabolic Panel; Complete Time: 10:56 07/01 09:23 Order name: CBC with Diff; Complete Time: 10:32 rn 07/01 09:23 Order name: Hepatic Function; Complete Time: 10:56 rn 07/01 09:23 Order name: Magnesium; Complete Time: 10:57 rn 07/01 09:23 Order name: Protime (+inr) rn 07/01 09:23 Order name: Ptt, Activated rn 07/01 09:23 Order name: Troponin High Sensitivity; Complete Time: 10:57 07/01 09:23 Order name: UDS rn 07/01 09:23 Order name: Urinalysis w/ reflexes rn 07/01 09:23 Order name: CT Head Brain wo Cont; Complete Time: 10: rn 07/01 09:23 Order name: Chest Single View XRAY; Complete Time: 10:13 rn 07/01 09:23 Order name: EKG; Complete Time: 09: rn 07/01 09:23 Order name: Cardiac monitoring; Complete Time: 09: rn 07/01 09:23 Order name: EKG - Nurse/Tech; Complete Time: 10: rn 07/01 09:23 Order name: IV Saline Lock; Complete Time: 10: rn 07/01 09:23 Order name: Labs collected and sent; Complete Time: 10: rn 07/01 09:23 Order name: O2 Per Protocol; Complete Time: : rn 07/01 09:23 Order name: O2 Sat Monitoring; Complete Time: 09: rn EC:00 Rate is 72 beats/min. Rhythm is regular. QRS [place] is Normal. IL interval is normal. QRS rn interval is normal. QT interval is normal. No Q waves. T waves are Normal. No ST changes noted. Clinical impression: NSR w/ Non-specific ST/T Changes. Interpreted by me. Reviewed by me. Administered Medications: 10:27 Drug: Ondansetron IVP 4 mg Route: IVP; Site: right antecubital; iw 10:27 Drug: NS 0.9% IV 500 ml Route: IV; Rate: bolus; Site: right antecubital; iw 10:45 Drug: Promethazine IVP 12.5 mg Route: IVP; Site: left antecubital; ld1 12:08 Drug: Potassium Chloride IV 20 mEq Route: IV; Rate: calculated rate; Site: right iw antecubital; Disposition Summary: 07/01/22 10:40 Hospitalization Ordered Hospitalization Status: Inpatient Admission rn Provider: Ez Byrd rn Location: Telemetry/[facility] (Inpatient) rn Condition: Stable rn Problem: new rn Symptoms: have worsened rn Bed/Room Type: Standard rn Room Assignment: rn Diagnosis - Hypo-osmolality and hyponatremia rn - Vomiting rn - Ataxic gait rn - Muscle weakness (generalized) rn Forms: - Medication Reconciliation Form rn - SBAR form rn Signatures: Dispatcher Therese Manning, RN RN Villa Hong MD MD rn Sims, Lauren, RN RN ld1
--- NOTE | 2022-07-01 10:41 | ER ---
Nurse's Notes [facility] Name: Jaimie Amanda Age: 61 yrs Sex: Female : 1960 Arrival Date: 07/01/2022 Time: 09:21 Bed 7 Private MD: Diagnosis: Hypo-osmolality and hyponatremia;Vomiting;Ataxic gait;Muscle weakness (generalized) Presentation: 07/01 09:26 Chief complaint: Patient states: was seen here yesterday and left AMA from the floor, iw she had a fall at home this morning and she is still nauseous, unknown LOC she did hit her head. Coronavirus screen: At this time, the client does not indicate any symptoms associated with coronavirus-19. Ebola Screen: Patient negative for fever greater than or equal to 101.5 degrees Fahrenheit, and additional compatible Ebola Virus Disease symptoms Patient denies exposure to infectious person. Patient denies travel to an Ebola-affected area in the 21 days before illness onset. No symptoms or risks identified at this time. 09:26 Method Of Arrival: EMS: [facility] iw 09:26 Acuity: [facility] 3 iw Historical: - Allergies: 13:42 No Known Allergies; iw - PMHx: 10:09 Anxiety; Chronic Abdominal Pain; Hypertensive disorder; Hypothyroidism; low NA; NIDDM; iw - PSHx: 10:09 Thyroidectomy; iw - Family history:: not pertinent. - Hospitalizations: : The patient was recently seen at [facility]. Screenin:09 [facility] ED Fall Risk Assessment (Adult) History of falling in the last 3 months, iw including since admission. Abuse screen: Denies threats or abuse. Denies injuries from another. Nutritional screening: Has had N/V for 3 or more days. Tuberculosis screening: No symptoms or risk factors identified. Assessment: 13:41 Reassessment: Patient appears in no apparent distress at this time. Patient and/or iw family updated on plan of care and expected duration. Pain level reassessed. Patient is alert, oriented x 3, equal unlabored respirations, skin warm/dry/pink. pt requesting to sign out AMA Patient states feeling better. Patient states symptoms have improved. Vital Signs: : BP 138 / 80; Pulse 83; Resp 16; Temp 98.1; Pulse Ox 95% on R/A; iw ED Course: :22 Patient arrived in ED. rn 09:22 Villa Byrd MD is Attending Physician. rn 09:26 Therese Logan, RN is Primary Nurse. iw 09:29 Triage completed. iw 09:43 CT Head Brain wo Cont In Process Unspecified. EDMS 09:58 Chest Single View XRAY In Process Unspecified. EDMS 10:08 Basic Metabolic Panel Sent. iw 10:08 CBC with Diff Sent. iw 10:08 Hepatic Function Sent. iw 10:08 Magnesium Sent. iw 10:08 Protime (+inr) Sent. iw 10:08 Ptt, Activated Sent. iw 10:08 Troponin High Sensitivity Sent. iw 10:08 Arm band placed on. iw 10:09 Inserted saline lock: 22 gauge in right antecubital area, using aseptic technique. iw 10:40 Ez Byrd MD is Hospitalizing Provider. rn 11:33 UDS Sent. iw 11:33 Urinalysis w/ reflexes Sent. iw Administered Medications: 10:27 Drug: Ondansetron IVP 4 mg Route: IVP; Site: right antecubital; iw 10:27 Drug: NS 0.9% IV 500 ml Route: IV; Rate: bolus; Site: right antecubital; iw 10:45 Drug: Promethazine IVP 12.5 mg Route: IVP; Site: left antecubital; ld1 12:08 Drug: Potassium Chloride IV 20 mEq Route: IV; Rate: calculated rate; Site: right iw antecubital; Outcome: 10:40 Decision to Hospitalize by Provider. rn 13:42 Patient left the ED. aa5 Signatures: Dispatcher [employer] Therese Coello, CATY RN iw Villa Byrd MD MD rn Calderon, Audri, RN RN aa5 Maritza Singh RN RN ld1
[2022-07-01 10:43] LABS: Magnesium 1.7 mg/dL (1.6-2.4); Potassium 3.1 mEq/L (3.5-5.1)
[2022-07-01] MEDS ORDERED: PROMETHAZINE INJ 25 MG/ML AMP ONE (10:46)
[2022-07-01 11:42] LABS: Specific Gravity 1.018 (1.005-1.030); Urine Bacteria 20-50 /HPF (<20); Urine Bilirubin NEGATIVE (Negative); Urine Blood Negative (Negative); Urine Clarity Clear (Clear); Urine Color Light-Yellow (Yellow); Urine Glucose NEGATIVE (Negative); Urine Mucus Slight /HPF (None Seen); Urine Protein TRACE (Negative); Urine RBC <5 /HPF (None Seen); Urine Urobilinogen Normal (Normal)
[2022-07-01 11:47] LABS: Barbiturates NEGATIVE (NEGATIVE); Benzodiazepines NEGATIVE (NEGATIVE); Cocaine NEGATIVE (NEGATIVE); METHAMPHETAM NEGATIVE (NEGATIVE); Methadone NEGATIVE (NEGATIVE); Opiates NEGATIVE (NEGATIVE); Phencyclidine NEGATIVE (NEGATIVE); THC Cannibis NEGATIVE (NEGATIVE)
[2022-07-01] MEDS ORDERED: NA CHLORIDE 0.9% 250 ML ONE (12:04)
[2022-07-01] MEDS ORDERED: KCL 20 MEQ/100 mL IVPB 100 ML IV ONE (12:04)
[2022-07-01 12:18] LABS: Protime INR 1.03
[2022-07-01 14:04] VITALS: BP 138/80; TEMP 98.1; O2SAT 95
--- NOTE | 2022-07-01 19:08 | P.PN ---
Date of Service: 07/01/22 Patient is a 61-year-old female with a past medical history significant for hypertension, anxiety disorder, depression, HLD, hypothyroidism, DM2, nicotine dependence, seizure disorder who presents with complaint of generalized weakness and fall which occurred this am. . Patient was admitted to the hospital yesterday and left AMA this morning. I got an admission information from the ER this morning and patient indicated that she is feeling better and would like to go home. Patient educated on need to stay in the hospital to treat her dizziness, hyponatremia and generalized weakness. Patient insisted on going home. Patient advised against the risks of leaving AMA. Nursing staff reported later that patient signed the AMA form and left the hospital. No admission orders were placed in the chart as patient declined admission. Attending MD was later notified of patient leaving AMA.
--- NOTE | 2022-07-02 16:48 | EKG ---
Test Date: 2022-07-01 Test Time: 09:58:17 [employer]: [place] MEASUREMENT RESULTS: Intervals: Rate: 72 [place]: 202 QRSD: 90 QT: 406 QTc: 444 [place]: P: 57 [place]: 202 QRS: 79 T: 66 INTERPRETIVE STATEMENTS: Normal sinus rhythm Normal ECG Compared to ECG 06/30/2022 08:49:28 Sinus bradycardia no longer present T-wave abnormality no longer present Electronically Signed On 07-02-22 16:46:50 CDT by Brian Booker
== END 2022-07-01 13:42 | disposition left against medical advice (07) ==
LOC: ER 09:21
DX: E87.1 Hypo-osmolality and hyponatremia (principal); R11.10 Vomiting, unspecified; R26.0 Ataxic gait; I10 Essential (primary) hypertension; R41.82 Altered mental status, unspecified; E03.9 Hypothyroidism, unspecified; E11.9 Type 2 diabetes mellitus without complications; F41.9 Anxiety disorder, unspecified; W18.30XA Fall on same level, unspecified, initial encounter
CPT/HCPCS: 93005; 85025; 81001; 80048; 36415; 83735; 85610; 80076; 85730; 84484; 80307; 70450; 71045; 99284; J2550; J3480; J2405; J7050; J7040

== ENCOUNTER 2022-07-02 00:30 | Inpatient (IN) | payer OTHER ==
--- OUTSIDE RECORDS SUMMARY | 2022-07-02 00:47 | XMS REPORT | Continuity of Care Document ---
:1960 Author Organization [facility] t Address [address] [place] [address] [place] [id number] Care Team Providers Name Role Phone Maya CLARK, Jacinda Primary Care Physician [phone] MATT SIMPSON Attending Clinician Unavailable MATT SIMPSON Attending Clinician Unavailable Doctor Unassigned, [place] Attending Clinician Unavailable WALLY KRISHNAMURTHY Attending Clinician Unavailable Natacha Brewster Attending Clinician Payers Payer Name Policy Type Policy Number Effective Date Expiration Date Sarina castelan [facility] JESSICA [id number] 2017 00:00:00 PLUS Problems This patient has [...] s TRANSDER - ity of MAL 00:00: [place] [facility] ACETAMIN DRUG Active Other-Cmnt Univ ers OPHEN INGREDI - ity of 00:00: [place] [facility] Hmg-Coa Propensi Inactiv Reductas ty to e 2-28 e adverse 00:00: Inhibito reaction 00 rs to drug Nitrogly Propensi Active 2017-03 cerin ty to 1-08 adverse 00:00: reaction 00 to drug Social History Social Habit Start Date Stop Date Quantity Comments Source History of Smokes tobacco [facility] use [facility] Alcohol intake 2016-05-01 2016-05-01 [address] [facility] 00:00:00 00:00:00 non-drinker of Medical Ce nter alcohol (finding) Sex Assigned At [birth year] [facility] 00:00:00 00:00:00 [facility] Smoking Status Start Date Stop Date Source Smokes tobacco daily 2016-05-01 00:00:00 [facility] Medications Ordered Filled Start Stop [...] AT BEDTIME 00 Dose 2-1 No Unknown 03-12 00:00: 00 TAKE 1 2-1 No TABLET BY 1-04 MOUTH EVERY 00:00: SIX HOURS 00 NEEDED VENLAFAXINE 2021-1 No HCL ER 150 1-04 MG CP24 00:00: 00 CLONIDINE 2-1 No HYDROCHLORI 1-04 DE 0.3 MG 00:00: TABS 00 CLONAZEPAM 2-0 No 1 MG TABS 11-19 00:00: 00 CLONAZEPAM 2-0 No 1 MG TABS 11-19 00:00: 00 CLONAZEPAM 2022-0 No 1 MG TABS 11-19 00:00: 00 TAKE 1 2-0 No TABLET BY 902 [...] TAKE 2 2022-0 No 750 TABLETS BY -02 MOUTH THREE 00:00: TIMES DAILY 00 NEEDED [...] 1-14 disintegrat 00:00: ing tablet 00 sulfamethox 2021-0 No 1mg azole 800 [...] Linzess 145 2020-0 No 1mcg mcg capsule 3- 00:00: 00 ondansetron 2020-0 No mg HCl [...] capsule 00:00: 00 OXcarbazepi 2017-0 Yes 600mg Q.[id number] Take [address] [facility] [address] [facility] 2-23 [id number] [facility] 10:23: 3D mouth 3 Med ical 600 MG 59 (three) Center tablet times daily. PARoxetine 2017-0 Yes 40mg QD Take [address] (PAXIL) 40 2-23 [facility] tablet 10:23: nightly. [address] PARoxetine 2017-0 Yes 40mg QD Take [address] (PAXIL) 40 2-23 [facility] tablet 10:23: nightly. [address] OXcarbazepi 2017-0 Yes 600mg Q.[id number] Take [address] ne 2-23 [id number] [facility] (TRILEPTAL) 10:23: 3D mouth 3 Med ical 600 MG 59 (three) Center tablet times daily. PARoxetine 2017-0 Yes 40mg QD Take [address] (PAXIL) 40 2-23 [facility] tablet 10:23: nightly. [address] 2017-0 Yes 600mg Q.56801605 Take [address] ne 2-23 [id number] [facility] (TRILEPTAL) 10:23: 3D mouth 3 Med ical 600 MG 59 (three) Center tablet times daily. PARoxetine 2017-0 Yes 40mg QD Take [address] (PAXIL) 40 2-23 [facility] tablet 10:23: nightly. [address] OXcarbazepi 2017-0 Yes 600mg Q.[id number] Take [address] ne 2-23 [id number] [facility] (TRILEPTAL) 10:23: 3D mouth 3 Med ical 600 MG 59 (three) Center tablet times daily. PARoxetine 2017-0 Yes 40mg QD Take [address] (PAXIL) 40 2-23 [facility] tablet 10:23: nightly. [address] OXcarbazepi 2017-0 Yes 600mg Q.[id number] Take [address] ne 2-23 [id number] [facility] (TRILEPTAL) 10:23: 3D mouth 3 Med ical 600 MG 59 (three) Center tablet times daily. PARoxetine 2017-0 Yes 40mg QD Take [address] (PAXIL) 40 2-23 [facility] tablet 10:23: nightly. [address] OXcarbazepi 2017-0 Yes 600mg Q.[id number] Take [address] ne 2-23 [id number] [facility] (TRILEPTAL) 10:23: 3D mouth 3 Med ical 600 MG 59 (three) Center tablet times daily. PARoxetine 2017-0 Yes 40mg QD Take [address] (PAXIL) 40 2-23 [facility] tablet 10:23: nightly. [address] OXcarbazepi 2017-0 Yes 600mg Q.[id number] Take [address] ne 2-23 [id number] mg [facility] (TRILEPTAL) 10:23: 3D mouth 3 Med ical 600 MG 59 (three) Center tablet times daily. PARoxetine 2017-0 Yes 40mg QD Take [address] (PAXIL) 40 2-23 [facility] tablet 10:23: nightly. [address] OXcarbazepi 2017-0 Yes 600mg Q.[id number] Take [address] ne 2-23 [id number] [facility] (TRILEPTAL) 10:23: 3D mouth 3 Med ical 600 MG 59 (three) Center tablet times daily. PARoxetine 2017-0 Yes 40mg QD Take [address] (PAXIL) 40 2-23 by [facility] tablet 10:23: nightly. [address] OXcarbazepi 2017-0 Yes 600mg Q.[id number] Take [address] ne 2-23 [id number] mg [facility] (TRILEPTAL) 10:23: 3D mouth 3 Med ical 600 MG 59 (three) Center tablet times daily. OXcarbazepi 2017-0 Yes 600mg Q.72383999 Take [address] ne 2-23 [id number] [facility] (TRILEPTAL) 10:23: 3D mouth 3 Med ical 600 MG 59 (three) Center tablet times daily. PARoxetine 2017-0 Yes 40mg QD Take [address] (PAXIL) 40 2-23 by [facility] tablet 10:23: nightly. [address] OXcarbazepi 2017-0 Yes 600mg Q.[id number] Take [address] ne 2-23 [id number] [facility] (TRILEPTAL) 10:23: 3D mouth 3 Med ical 600 MG 59 (three) Center tablet times daily. PARoxetine 2017-0 Yes 40mg QD Take [address] (PAXIL) 40 2-23 [facility] tablet 10:23: nightly. [address] PARoxetine 2017-0 Yes 40mg QD Take [address] (PAXIL) 40 2-23 by [facility] tablet 10:23: nightly. [address] OXcarbazepi 2017-0 Yes 600mg Q.[id number] Take [address] ne 2-23 [id number] mg [facility] (TRILEPTAL) 10:23: 3D mouth 3 Med ical 600 MG 59 (three) Center tablet times daily. PARoxetine 2017-0 Yes 40mg QD Take [address] (PAXIL) 40 2-23 by [facility] tablet 10:23: nightly. [address] 2017-0 Yes 600mg Q.[id number] Take [address] ne 2-23 [id number] [facility] (TRILEPTAL) 10:23: 3D mouth 3 Med ical 600 MG 59 (three) Center tablet times daily. PARoxetine 2017-0 Yes 40mg QD Take [address] (PAXIL) 40 2-23 by [facility] tablet 10:23: nightly. [address] 2017-0 Yes 600mg Q.56227919 Take [address] ne 2-23 [id number] mg [facility] (TRILEPTAL) 10:23: 3D mouth 3 Med ical 600 MG 59 (three) Center tablet times daily. PARoxetine 2017-0 Yes 40mg QD Take [address] (PAXIL) 40 2-23 by [facility] tablet 10:23: nightly. [address] OXcarbazepi 2017-0 Yes 600mg Q.[id number] Take [address] ne 2-23 [id number] mg [facility] (TRILEPTAL) 10:23: 3D mouth 3 Med ical 600 MG 59 (three) Center tablet times daily. PARoxetine 2017-0 Yes 40mg QD Take [address] (PAXIL) 40 2-23 by [facility] tablet 10:23: nightly. [address] OXcarbazepi 2017-0 Yes 600mg Q.97173841 Take [address] ne 2-23 [id number] mg [facility] (TRILEPTAL) 10:23: 3D mouth 3 Med ical 600 MG 59 (three) Center tablet times daily. PARoxetine 2017-0 Yes 40mg QD Take [address] (PAXIL) 40 2-23 by [facility] tablet 10:23: nightly. [facility] [address] OXcarbazepi 2017-0 Yes 600mg Q.24125455 Take [address] ne 2-23 [id number] mg [facility] (TRILEPTAL) 10:23: 3D mouth 3 Med ical 600 MG 59 (three) Center tablet times daily. PARoxetine 2017-0 Yes 40mg QD Take [address] (PAXIL) 40 2-23 by [facility] tablet 10:23: nightly. [facility] anjelica [address] OXcarbazepi 2017-0 Yes 600mg Q.[id number] Take [address] ne 2-23 [id number] mg [facility] (TRILEPTAL) 10:23: 3D mouth 3 Med ical 600 MG 59 (three) Center tablet times daily. PARoxetine 2017-0 Yes 40mg QD Take [address] (PAXIL) 40 2-23 by [facility] tablet 10:23: nightly. [facility] [address] OXcarbazepi 2017-0 Yes 600mg Q.[id number] Take [address] ne 2-23 [id number] mg by [facility] (TRILEPTAL) 10:23: 3D mouth 3 Med ical 600 MG 59 (three) Center tablet times daily. PARoxetine 2017-0 Yes 40mg QD Take [address] (PAXIL) 40 2-23 by [facility] tablet 10:23: nightly. [facility] [address] OXcarbazepi 2017-0 Yes 600mg Q.81044723 Take [address] ne 2-23 [id number] mg [facility] (TRILEPTAL) 10:23: 3D mouth 3 Med ical 600 MG 59 (three) Center tablet times daily. OXcarbazepi 2017-0 Yes 600mg Q.82157300 Take [address] ne 2-23 [id number] mg [facility] (TRILEPTAL) 10:23: 3D mouth 3 Med ical 600 MG 59 (three) Center tablet times daily. PARoxetine 2017-0 Yes 40mg QD Take [address] (PAXIL) 40 2-23 by [facility] tablet 10:23: nightly. [address] OXcarbazepi 2017-0 Yes 600mg Q.[id number] Take [address] ne 2-23 [id number] mg [facility] (TRILEPTAL) 10:23: 3D mouth 3 Med ical 600 MG 59 (three) Center tablet times daily. PARoxetine 2017-0 Yes 40mg QD Take [address] (PAXIL) 40 2-23 by [facility] tablet 10:23: nightly. [address] OXcarbazepi 2017-0 Yes 600mg Q.[id number] Take [address] ne 2-23 [id number] mg [facility] (TRILEPTAL) 10:23: 3D mouth 3 Med ical 600 MG 59 (three) Center tablet times daily. PARoxetine 2017-0 Yes 40mg QD Take [address] (PAXIL) 40 2-23 by [facility] tablet 10:23: nightly. [address] PARoxetine 2017-0 Yes 40mg QD Take [address] (PAXIL) 40 2-23 by [facility] tablet 10:23: nightly. [address] OXcarbazepi 2017-0 Yes 600mg Q.[id number] Take [address] ne 2-23 [id number] mg [facility] (TRILEPTAL) 10:23: 3D mouth 3 Med ical 600 MG 59 (three) Center tablet times daily. PARoxetine 2017-0 Yes 40mg QD Take [address] (PAXIL) 40 2-23 by [facility] tablet 10:23: nightly. [address] OXcarbazepi 2017-0 Yes 600mg Q.[id number] Take [address] ne 2-23 [id number] [facility] (TRILEPTAL) 10:23: 3D mouth 3 Med ical 600 MG 59 (three) Center tablet times daily. PARoxetine 2017-0 Yes 40mg QD Take [address] (PAXIL) 40 2-23 by [facility] tablet 10:23: nightly. [address] OXcarbazepi 2017-0 Yes 600mg Q.67236836 Take [address] ne 2-23 [id number] mg by [facility] (TRILEPTAL) 10:23: 3D mouth 3 Med ical 600 MG 59 (three) Center tablet times daily. PARoxetine 2017-0 Yes 40mg QD Take [address] (PAXIL) 40 2-23 by mouth [facility] tablet 10:23: nightly. [address] OXcarbazepi 2017-0 Yes 600mg Q.57343854 Take [address] ne 2-23 [id number] mg by [facility] (TRILEPTAL) 10:23: 3D mouth 3 Med ical 600 MG 59 (three) Center tablet times daily. PARoxetine 2017-0 Yes 40mg QD Take [address] (PAXIL) 40 2-23 by [facility] tablet 10:23: nightly. [address] 2017-0 Yes 600mg Q.51751002 Take [address] ne 2-23 [id number] mg [facility] (TRILEPTAL) 10:23: 3D mouth 3 Med ical 600 MG 59 (three) Center tablet times daily. PARoxetine 2017-0 Yes 40mg QD Take [address] (PAXIL) 40 2-23 by [facility] tablet 10:23: nightly. [address] 2017-0 Yes 600mg Q.71977179 Take [address] ne 2-23 [id number] mg [facility] (TRILEPTAL) 10:23: 3D mouth 3 Med ical 600 MG 59 (three) Center tablet times daily. PARoxetine 2017-0 Yes 40mg QD Take [address] (PAXIL) 40 2-23 by mouth [facility] tablet 10:23: nightly. [address] OXcarbazepi 2017-0 Yes 600mg Q.45430582 Take [address] ne 2-23 [id number] mg [facility] (TRILEPTAL) 10:23: 3D mouth 3 Med ical 600 MG 59 (three) Center tablet times daily. PARoxetine 2017-0 Yes 40mg QD Take [address] (PAXIL) 40 2-23 by [facility] tablet 10:23: nightly. [address] 2017-0 Yes 600mg Q.91830040 Take [address] ne 2-23 [id number] mg [facility] (TRILEPTAL) 10:23: 3D mouth 3 Med ical 600 MG 59 (three) Center tablet times daily. OXcarbazepi 2017-0 Yes 600mg Q.41588665 Take [address] ne 2-23 [id number] mg by [facility] (TRILEPTAL) 10:23: 3D mouth 3 Med ical 600 MG 59 (three) Center tablet times daily. PARoxetine 2017-0 Yes 40mg QD Take [address] (PAXIL) 40 2-23 by mouth [facility] tablet 10:23: nightly. [facility] [address] OXcarbazepi 2017-0 Yes 600mg Q.42331000 Take [address] ne 2-23 [id number] mg by [facility] (TRILEPTAL) 10:23: 3D mouth 3 Med ical 600 MG 59 (three) Center tablet times daily. PARoxetine 2017-0 Yes 40mg QD Take [address] (PAXIL) 40 2-23 by mouth [facility] MG tablet 10:23: nightly. [facility] [address] OXcarbazepi 2017-0 Yes 600mg Q.21860525 Take [address] ne 2-23 [id number] mg by [facility] (TRILEPTAL) 10:23: 3D mouth 3 Med ical 600 MG 59 (three) Center tablet times daily. PARoxetine 2017-0 Yes 40mg QD Take [address] (PAXIL) 40 2-23 by [facility] tablet 10:23: nightly. [facility] [address] LORazepam 2017-0 Yes 1mg Take 1 [facility] [...] 18 daily. Center 100 MCG tablet levothyroxi 2014- Yes 100ug QD Take 100 [facility] [...] Goal Plan of Care Note [code = 72246-9] Goal Plan of Care Note [code = 09636-5] Goal Plan of Care Note [code = 64001-4] Goal Plan of Care Note [code = 95444-3] Goal Plan of Care Note [code = 58895-5] Goal Plan of Care Note [code = 12808-2] Goal Plan of Care Note [code = 25497-1] Goal Plan of Care Note [code = 08274-7] Goal Plan of Care Note [code = 58929-0] Goal Plan of Care Note [code = 54211-3] Goal Plan of Care Note [code = 33493-7] Goal Plan of Care Note [code = 67665-6] Goal Plan of Care Note [code = 72733-2] Goal Plan of Care Note [code = 22542-0] Goal Plan of Care Note [code = 39754-8] Goal Plan of Care Note [code = 19079-9] Goal Plan of Care Note [code = 83278-7] Goal Plan of Care Note [code = 98773-7] Goal Plan of Care Note [code = 12359-5] Goal Plan of Care Note [code = 21784-4] Goal Plan of Care Note [code = 15425-0] Goal Plan of Care Note [code = 02805-0] Goal Plan of Care Note [code = 49949-3] Goal Plan of Care Note [code = 95766-8] Goal Plan of Care Note [code = 43557-2] Goal Plan of Care Note [code = 19547-4] Goal Plan of Care Note [code = 80264-9] Goal Plan of Care Note [code = 02892-2] Goal Plan of Care Note [code = 16467-8] Goal Plan of Care Note [code = 11794-2] Goal Plan of Care Note [code = 76468-2] Goal Plan of Care Note [code = 36362-4] Goal Plan of Care Note [code = 30884-6] Goal Plan of Care Note [code = 52979-7] Goal Plan of Care Note [code = 11066-3] Goal Plan of Care Note [code = 75184-4] Goal Plan of Care Note [code = 16124-4] Goal Plan of Care Note [code = 10359-2] Goal Plan of Care Note [code = 32833-5] Goal Plan of Care Note [code = 48434-7] Goal Plan of Care Note [code = 92912-6] Goal Plan of Care Note [code = 68764-4] Goal Plan of Care Note [code = 25664-2] Goal Plan of Care Note [code = 42127-4] Goal Plan of Care Note [code = 22810-9] Goal Plan of Care Note [code = 83335-8] Goal Plan of Care Note [code = 49622-7] Goal Plan of Care Note [code = 40414-7] Goal Plan of Care Note [code = 55942-5] Goal Plan of Care Note [code = 79383-7] Goal Plan of Care Note [code = 66198-9] Goal Plan of Care Note [code = 99913-6] Goal Plan of Care Note [code = 23194-9] Goal Plan of Care Note [code = 68193-0] Goal Plan of Care Note [code = 62092-7] Goal Plan of Care Note [code = 97450-0] Goal Plan of Care Note [code = 06875-0] Goal Plan of Care Note [code = 99746-3] Goal Plan of Care Note [code = 92998-2] Goal Plan of Care Note [code = 20535-8] Goal Plan of Care Note [code = 90053-6] Goal Plan of Care Note [code = 10629-3] Goal Plan of Care Note [code = 59885-1] Goal Plan of Care Note [code = 51790-1] Goal Plan of Care Note [code = 97401-6] Goal Plan of Care Note [code = 47489-0] Goal Plan of Care Note [code = 50235-7] Goal Plan of Care Note [code = 91044-3] Goal Plan of Care Note [code = 22424-6] Goal Plan of Care Note [code = 67642-9] Goal Plan of Care Note [code = 79421-6] Goal Plan of Care Note [code = 92329-8] Goal Plan of Care Note [code = 31075-9] Goal Plan of Care Note [code = 29662-2] Goal Plan of Care Note [code = 15235-9] Goal Plan of Care Note [code = 61658-2] Goal Plan of Care Note [code = 21813-0] Goal Plan of Care Note [code = 20800-8] Goal Plan of Care Note [code = 95821-6] Goal Plan of Care Note [code = 19623-8] Goal Plan of Care Note [code = 92936-2] Goal Plan of Care Note [code = 50371-6] Goal Plan of Care Note [code = 46156-6] Goal Plan of Care Note [code = 03669-8] Goal Plan of Care Note [code = 57919-5] Goal Plan of Care Note [code = 68415-1] Goal Plan of Care Note [code = 88664-3] Goal Plan of Care Note [code = 88246-7] Goal Plan of Care Note [code = 20881-4] Goal Plan of Care Note [code = 58793-9] Goal Plan of Care Note [code = 12853-4] Goal Plan of Care Note [code = 28168-4] Goal Plan of Care Note [code = 50409-9] Goal Plan of Care Note [code = 23432-3] Goal Plan of Care Note [code = 88766-3] Goal Plan of Care Note [code = 02549-4] Goal Plan of Care Note [code = 94550-7] Goal Plan of Care Note [code = 86630-6] Goal Plan of Care Note [code = 31453-0] Goal Plan of Care Note [code = 39935-2] Goal Plan of Care Note [code = 66537-0] Goal Plan of Care Note [code = 70854-3] Goal Plan of Care Note [code = 06067-8] Goal Plan of Care Note [code = 28940-9] Goal Plan of Care Note [code = 05029-9] Goal Plan of Care Note [code = 14190-0] Goal Plan of Care Note [code = 61726-0] Goal Plan of Care Note [code = 15601-2] Goal Plan of Care Note [code = 95543-6] Goal Plan of Care Note [code = 79470-9] Goal Plan of Care Note [code = 08505-3] Goal Plan of Care Note [code = 76181-8] Goal Plan of Care Note [code = 23456-8] Goal Plan of Care Note [code = 32378-3] Goal Plan of Care Note [code = 47583-7] Goal Plan of Care Note [code = 83105-6] Goal Plan of Care Note [code = 69950-8] Goal Plan of Care Note [code = 59794-1] Goal Plan of Care Note [code = 42557-6] Goal Plan of Care Note [code = 55114-9] Goal Plan of Care Note [code = 27995-5] Goal Plan of Care Note [code = 23792-1] Goal Plan of Care Note [code = 93204-2] Goal Plan of Care Note [code = 47821-9] Goal Plan of Care Note [code = 33656-0] Goal Plan of Care Note [code = 28062-8] Goal Plan of Care Note [code = 20874-3] Goal Plan of Care Note [code = 96477-0] Goal Plan of Care Note [code = 37223-9] Goal Plan of Care Note [code = 44086-7] Goal Plan of Care Note [code = 63954-8] Goal Plan of Care Note [code = 60509-2] Goal Plan of Care Note [code = 92717-6] Goal Plan of Care Note [code = 54197-2] Goal Plan of Care Note [code = 16001-9] Goal Plan of Care Note [code = 30226-4] Goal Plan of Care Note [code = 69635-2] Goal Plan of Care Note [code = 59446-5] Goal Plan of Care Note [code = 76910-3] Goal Plan of Care Note [code = 13561-0] Goal Plan of Care Note [code = 95748-0] Goal Plan of Care Note [code = 53406-3] Goal Plan of Care Note [code = 63194-8] Goal Plan of Care Note [code = 67038-0] Goal Plan of Care Note [code = 64995-1] Goal Plan of Care Note [code = 41312-1] Goal Plan of Care Note [code = 92019-8] Goal Plan of Care Note [code = 45343-5] Goal Plan of Care Note [code = 72135-7] Goal Plan of Care Note [code = 37946-8] Goal Plan of Care Note [code = 04846-1] Goal Plan of Care Note [code = 59373-7] Goal Plan of Care Note [code = 46037-9] Goal Plan of Care Note [code = 56505-5] Goal Plan of Care Note [code = 90708-8] Goal Plan of Care Note [code = 34083-6] Goal Plan of Care Note [code = 12583-9] Goal Plan of Care Note [code = 51055-9] Goal Plan of Care Note [code = 87158-0] Goal Plan of Care Note [code = 29297-1] Goal Plan of Care Note [code = 45288-5] Goal Plan of Care Note [code = 97295-3] Goal Plan of Care Note [code = 95682-6] Goal Plan of Care Note [code = 37992-4] Goal Plan of Care Note [code = 92833-8] Goal Plan of Care Note [code = 86664-5] Goal Plan of Care Note [code = 24770-2] Goal Plan of Care Note [code = 78617-1] Goal Plan of Care Note [code = 83757-9] Goal Plan of Care Note [code = 83255-6] Goal Plan of Care Note [code = 20713-3] Goal Plan of Care Note [code = 82140-0] Goal Plan of Care Note [code = 74315-0] Goal Plan of Care Note [code = 62027-9] Goal Plan of Care Note [code = 86938-2] Goal Plan of Care Note [code = 93633-8] Goal Plan of Care Note [code = 90590-1] Goal Plan of Care Note [code = 97494-8] Goal Plan of Care Note [code = 56918-0] Goal Plan of Care Note [code = 38069-1] Goal Plan of Care Note [code = 72460-5] Goal Plan of Care Note [code = 32025-4] Goal Plan of Care Note [code = 09935-1] Goal Plan of Care Note [code = 83122-0] Goal Plan of Care Note [code = 37111-4] Goal Plan of Care Note [code = 63430-0] Goal Plan of Care Note [code = 89470-5] Goal Plan of Care Note [code = 32011-6] Goal Plan of Care Note [code = 73057-0] Goal Plan of Care Note [code = 93494-1] Goal Plan of Care Note [code = 56471-3] Goal Plan of Care Note [code = 75822-3] Goal Plan of Care Note [code = 41989-4] Goal Plan of Care Note [code = 47694-5] Goal Plan of Care Note [code = 35135-4] Goal Plan of Care Note [code = 31002-8] Goal Plan of Care Note [code = 53915-9] Goal Plan of Care Note [code = 29579-3] Goal Plan of Care Note [code = 46368-3] Goal Plan of Care Note [code = 85784-7] Goal Plan of Care Note [code = 83479-2] Goal Plan of Care Note [code = 05277-9] Goal Plan of Care Note [code = 30502-4] Goal Plan of Care Note [code = 13581-4] Goal Plan of Care Note [code = 27584-6] Goal Plan of Care Note [code = 91019-4] Goal Plan of Care Note [code = 68360-0] Goal Plan of Care Note [code = 67228-8] Encounters Start End Encounter Admission Attending Care Care Encounter Source Date/Time Date/Time Type Type Clinicians Facility Department ID 2021-06-01 Outpatient [facility] [id number] [place] 01:36:29 [id number] [facility] 2022-05-24 2022-05-24 Outpatient [facility] SFA [id number] Cristian 10:36:59 10:36:59 0318 F Jerman 2022-02-11 2022-02-11 Outpatient [facility] SFA [id number] Cristian 09:04:48 09:04:48 1206 F Jerman 2022-02-10 2022-02-10 Outpatient [facility] SFA [id number] Cristian 09:29:34 09:29:34 1205 F Jerman 2022-02-10 2022-02-10 Outpatient [id number] 00:00:00 00:00:00 Visit 4089-4cab 089-4cab-9 -4kz2-b9x bf5-g7u074 [id number] 2022-01-10 2022-01-10 Outpatient SFA SFA [id number] Cristian 09:16:14 09:16:14 1104 F Jerman 2022-01-10 2022-01-10 Outpatient [id number] accaa6-a 00:00:00 00:00:00 Visit aca9-4c83 ca9-4c83-a -d1my-ju5 7eb-bc13f3 [id number] [id number] 2021-12-19 2021-12-19 Outpatient [facility] [id number] Cristian 16:11:31 16:11:31 1013 F Jerman 2021-12-19 2021-12-19 Outpatient [id number] 00:00:00 00:00:00 Visit e603-588v 770-441f-a -adae-62b amelia-62bace fnluy91vf fd81af 2021-09-17 2021-09-17 Outpatient [id number]- [id number] t4xncr-3 00:00:00 00:00:00 Visit 935a-4f50 35a-4f50-b -b90y-q5o 77d-c2ba85 [id number] 2020-08-03 2020-08-03 Outpatient MATT VÁSQUEZ [facility] [id number] [facility] 10:00:00 10:00:00 MATT SIMPSON [facility] 2020-07-25 2020-07-25 Orders Doctor FISH [id number] 00:00:00 00:00:00 Only UnassignedBK 350.1.13.[address] [place] [facility] 4.2.7.2.686 [id number] 2019-09-26 2019-09-26 Outpatient Bertin KRISHNAMURTHY [facility] [id number] Univers 16:00:00 16:00:00 WALLY [facility] 2018-10-21 2018-10-21 [facility], [facility] [id number] 00:00:00 00:00:00 Natacha Nguyen [id number] Ade [id number] [place] [id number] nal 204 Building Results Test Description Test Time Test Comments Results Result Comments Source TSH, THIRD GENERATION 2022-05-26 02:57:49 Test Item Value Reference Range Interpretation Comme nts TSH, THIRD GENERATION (test code = 2821) 6.350 UIU/ML 0.400-4.100 H LIPID [id number] 01:09:34 Test Item Value Reference Range Interpretation [...] MOREINFORMATION , SEE CLIENT ANNOUNCE MENT AT [email or web address] LDL/HDL 2.73 RATIO <3.22 [facility] has important (test code = 2238) pathology staff changes effecti ve 05/07/2022. New pathology staff will provide uninter rupted, excellent patie nt care and clinical consultation. S ee URL: [email or web address] UNLES S OTHERWISE INDIC ATED, ALL TESTING PER FORMED AT [facility] [employer] FORMERLY [facility], [facility]. [address] [place] [id number] IS[address]RA SUH DIRECTOR: Andrew WHITLEY CONNOR NUMBER [id number] CAP ACCREDITATION N O. [id number] HEMOGLOBIN [id number] 03:17:24 Test Item Value Reference Range Interpretation Comments HEMOGLOBIN A1c (test 6.4 % 4.2-5.6 H AMERIC AN DIABETES code = 29443) ASSOCIATION IDELINES FOR HGB A1C: PREDIABETES/INC REASED [...] TESTING OR LABORATORY C ONSULTATION. TSH, THIRD [id number] 05:15:49 Test Item Value Reference Range Interpretation Comments TSH, THIRD GENERATION (test code 2.080 UIU/ML 0.400-4.100 = 2821) HEMOGLOBIN [id number] 03:46:00 Test Item Value Reference Range Interpretation Comments HEMOGLOBIN A1c (test 6.6 % 4.2-5.6 H AMERIC AN DIABETES code = 81201) ASSOCIATION IDELINES FOR HGB A1C: PREDIABETES/INC REASED [...] UNLESS OTHERWIS E INDICATED, ALL TESTING PER [facility] ATCLINICAL PATH [facility], [place] [address] LABORATORY DIRE CTOR: DIANA RUSS M.D. CLIA NUMBER [id number] [place]. [id number] LIPID [id number] 02:59:52 Test Item Value Reference Range Interpretation [...] MOREINFORMATION , SEE CLIENT ANNOUNCE MENT AT [email or web address] RISK RATIO LDL/HDL 4.02 RATIO <3.22 H (test code = 2238) [id number] 00:00:00 Test Item Value Reference Range Interpretation Comments TSH, THIRD GENERATION (test code 2.080 UIU/ML = 2821) [id number] 00:00:00 Test Item Value Reference Range Interpretation Comments TSH, THIRD GENERATION (test code 2.080 UIU/ML = 2821) [id number] 00:00:00 Test Item Value Reference Range Interpretation Comments TSH, THIRD GENERATION (test code 2.080 UIU/ML = 2821) LIPID [id number] 00:00:00 Test Item Value Reference Range Interpretation Comments CHOLESTEROL (test code = 2210) 292 MG/DL TRIGLYCERIDES (test code = 2232) 184 MG/DL HDL CHOLESTEROL (test code = 2220) 51 MG/DL CALC LDL CHOL (test code = 2237) 205 MG/DL RISK RATIO LDL/HDL (test code = 4.02 RATIO 2238) LIPID [id number] 00:00:00 Test Item Value Reference Range Interpretation Comments CHOLESTEROL (test code = 2210) 292 MG/DL TRIGLYCERIDES (test code = 2232) 184 MG/DL HDL CHOLESTEROL (test code = 2220) 51 MG/DL CALC LDL CHOL (test code = 2237) 205 MG/DL RISK RATIO LDL/HDL (test code = 4.02 RATIO 2238) HEMOGLOBIN [id number] 00:00:00 Test Item Value Reference Range Interpretation Comments HEMOGLOBIN A1c (test code = 08681) 6.6 % HEMOGLOBIN [id number] 00:00:00 Test Item Value Reference Range Interpretation Comments HEMOGLOBIN A1c (test code = 79372) 6.6 % HEMOGLOBIN [id number] 00:00:00 Test Item Value Reference Range Interpretation Comments HEMOGLOBIN A1c (test code = 17701) 6.6 % [id number] 00:00:00 Test Item Value Reference Range Interpretation Comments TSH, THIRD GENERATION (test code 2.080 UIU/ML = 2821) [id number] 00:00:00 Test Item Value Reference Range Interpretation Comments TSH, THIRD GENERATION (test code 2.080 UIU/ML = 2821) [id number] 00:00:00 Test Item Value Reference Range Interpretation Comments TSH, THIRD GENERATION (test code 2.080 UIU/ML = 2821) LIPID [id number] 00:00:00 Test Item Value Reference Range Interpretation Comments CHOLESTEROL (test code = 2210) 292 MG/DL TRIGLYCERIDES (test code = 2232) 184 MG/DL HDL CHOLESTEROL (test code = 2220) 51 MG/DL CALC LDL CHOL (test code = 2237) 205 MG/DL RISK RATIO LDL/HDL (test code = 4.02 RATIO 2238) LIPID [id number] 00:00:00 Test Item Value Reference Range Interpretation Comments CHOLESTEROL (test code = 2210) 292 MG/DL TRIGLYCERIDES (test code = 2232) 184 MG/DL HDL CHOLESTEROL (test code = 2220) 51 MG/DL CALC LDL CHOL (test code = 2237) 205 MG/DL RISK RATIO LDL/HDL (test code = 4.02 RATIO 2238) HEMOGLOBIN [id number] 00:00:00 Test Item Value Reference Range Interpretation Comments HEMOGLOBIN A1c (test code = 67576) 6.6 % HEMOGLOBIN [id number] 00:00:00 Test Item Value Reference Range Interpretation Comments HEMOGLOBIN A1c (test code = 98472) 6.6 % HEMOGLOBIN [id number] 00:00:00 Test Item Value Reference Range Interpretation Comments HEMOGLOBIN A1c (test code = 67262) 6.6 % [id number] 00:00:00 Test Item Value Reference Range Interpretation Comments TSH, THIRD GENERATION (test code 2.080 UIU/ML = 2821) [id number] 00:00:00 Test Item Value Reference Range Interpretation Comments TSH, THIRD GENERATION (test code 2.080 UIU/ML = 2821) LIPID [id number] 00:00:00 Test Item Value Reference Range Interpretation Comments CHOLESTEROL (test code = 2210) 292 MG/DL TRIGLYCERIDES (test code = 2232) 184 MG/DL HDL CHOLESTEROL (test code = 2220) 51 MG/DL CALC LDL CHOL (test code = 2237) 205 MG/DL RISK RATIO LDL/HDL (test code = 4.02 RATIO 2238) HEMOGLOBIN [id number] 00:00:00 Test Item Value Reference Range Interpretation Comments HEMOGLOBIN A1c (test code = 26843) 6.6 % HEMOGLOBIN [id number] 00:00:00 Test Item Value Reference Range Interpretation Comments HEMOGLOBIN A1c (test code = 40332) 6.6 % [id number] 00:00:00 Test Item Value Reference Range Interpretation Comments TSH, THIRD GENERATION (test code 2.080 UIU/ML = 2821) [id number] 00:00:00 Test Item Value Reference Range Interpretation Comments TSH, THIRD GENERATION (test code 2.080 UIU/ML = 2821) [id number] 00:00:00 Test Item Value Reference Range Interpretation Comments TSH, THIRD GENERATION (test code 2.080 UIU/ML = 2821) LIPID [id number] 00:00:00 Test Item Value Reference Range Interpretation Comments CHOLESTEROL (test code = 2210) 292 MG/DL TRIGLYCERIDES (test code = 2232) 184 MG/DL HDL CHOLESTEROL (test code = 2220) 51 MG/DL CALC LDL CHOL (test code = 2237) 205 MG/DL RISK RATIO LDL/HDL (test code = 4.02 RATIO 2238) LIPID [id number] 00:00:00 Test Item Value Reference Range Interpretation Comments CHOLESTEROL (test code = 2210) 292 MG/DL TRIGLYCERIDES (test code = 2232) 184 MG/DL HDL CHOLESTEROL (test code = 2220) 51 MG/DL CALC LDL CHOL (test code = 2237) 205 MG/DL RISK RATIO LDL/HDL (test code = 4.02 RATIO 2238) HEMOGLOBIN [id number] 00:00:00 Test Item Value Reference Range Interpretation Comments HEMOGLOBIN A1c (test code = 49429) 6.6 % HEMOGLOBIN [id number] 00:00:00 Test Item Value Reference Range Interpretation Comments HEMOGLOBIN A1c (test code = 33280) 6.6 % HEMOGLOBIN [id number] 00:00:00 Test Item Value Reference Range Interpretation Comments HEMOGLOBIN A1c (test code = 87168) 6.6 % HEMOGLOBIN [id number] 00:00:00 Test Item Value Reference Range Interpretation Comments HEMOGLOBIN A1c (test code = 41802) 6.8 % HEMOGLOBIN [id number] 00:00:00 Test Item Value Reference Range Interpretation Comments HEMOGLOBIN A1c (test code = 97383) 6.8 % HEMOGLOBIN [id number] 00:00:00 Test Item Value Reference Range Interpretation Comments HEMOGLOBIN A1c (test code = 18370) 6.8 % LIPID [id number] 00:00:00 Test Item Value Reference Range Interpretation Comments CHOLESTEROL (test code = 2210) 303 MG/DL TRIGLYCERIDES (test code = 2232) 191 MG/DL HDL CHOLESTEROL (test code = 2220) 61 MG/DL CALC LDL CHOL (test code = 2237) 205 MG/DL RISK RATIO LDL/HDL (test code = 3.36 RATIO 2238) LIPID [id number] 00:00:00 Test Item Value Reference Range Interpretation Comments CHOLESTEROL (test code = 2210) 303 MG/DL TRIGLYCERIDES (test code = 2232) 191 MG/DL HDL CHOLESTEROL (test code = 2220) 61 MG/DL CALC LDL CHOL (test code = 2237) 205 MG/DL RISK RATIO LDL/HDL (test code = 3.36 RATIO 2238) [id number] 00:00:00 Test Item Value Reference Range Interpretation Comments TSH, THIRD GENERATION (test code 0.769 UIU/ML = 2821) [id number] 00:00:00 Test Item Value Reference Range Interpretation Comments TSH, THIRD GENERATION (test code 0.769 UIU/ML = 2821) [id number] 00:00:00 Test Item Value Reference Range Interpretation Comments TSH, THIRD GENERATION (test code 0.769 UIU/ML = 2821) COMPREHENSIVE METABOLIC [id number] 00:00:00 Test Item Value Reference Range Interpretation Comments GLUCOSE (test code = 2217) 131 MG/DL BUN (test code = 2208) 13 MG/DL CREATININE (test code = 2214) 0.65 MG/DL eGFR AMER. (test code 113 ML/MIN/1.73 = 64211) eGFR NON- AMER. (test 97 ML/MIN/1.73 code = 86357) CALC BUN/CREAT (test code = 20 RATIO [...] code = 2219) 23 U/L COMPREHENSIVE METABOLIC [id number] 00:00:00 Test Item Value Reference Range Interpretation Comments GLUCOSE (test code = 2217) 131 MG/DL BUN (test code = 2208) 13 MG/DL CREATININE (test code = 2214) 0.65 MG/DL eGFR AMER. (test code 113 ML/MIN/1.73 = 72040) eGFR NON- AMER. (test 97 ML/MIN/1.73 code = 62607) CALC BUN/CREAT (test code = 20 RATIO [...] (test code = 2219) 23 U/L HEMOGLOBIN [id number] 00:00:00 Test Item Value Reference Range Interpretation Comments HEMOGLOBIN A1c (test code = 28096) 6.8 % HEMOGLOBIN [id number] 00:00:00 Test Item Value Reference Range Interpretation Comments HEMOGLOBIN A1c (test code = 14536) 6.8 % HEMOGLOBIN [id number] 00:00:00 Test Item Value Reference Range Interpretation Comments HEMOGLOBIN A1c (test code = 88352) 6.8 % LIPID [id number] 00:00:00 Test Item Value Reference Range Interpretation Comments CHOLESTEROL (test code = 2210) 303 MG/DL TRIGLYCERIDES (test code = 2232) 191 MG/DL HDL CHOLESTEROL (test code = 2220) 61 MG/DL CALC LDL CHOL (test code = 2237) 205 MG/DL RISK RATIO LDL/HDL (test code = 3.36 RATIO 2238) LIPID [id number] 00:00:00 Test Item Value Reference Range Interpretation Comments CHOLESTEROL (test code = 2210) 303 MG/DL TRIGLYCERIDES (test code = 2232) 191 MG/DL HDL CHOLESTEROL (test code = 2220) 61 MG/DL CALC LDL CHOL (test code = 2237) 205 MG/DL RISK RATIO LDL/HDL (test code = 3.36 RATIO 2238) [id number] 00:00:00 Test Item Value Reference Range Interpretation Comments TSH, THIRD GENERATION (test code 0.769 UIU/ML = 2821) [id number] 00:00:00 Test Item Value Reference Range Interpretation Comments TSH, THIRD GENERATION (test code 0.769 UIU/ML = 2821) [id number] 00:00:00 Test Item Value Reference Range Interpretation Comments TSH, THIRD GENERATION (test code 0.769 UIU/ML = 2821) COMPREHENSIVE METABOLIC [id number] 00:00:00 Test Item Value Reference Range Interpretation Comments GLUCOSE (test code = 2217) 131 MG/DL BUN (test code = 2208) 13 MG/DL CREATININE (test code = 2214) 0.65 MG/DL eGFR AMER. (test code 113 ML/MIN/1.73 = 72116) eGFR NON- AMER. (test 97 ML/MIN/1.73 code = 17585) CALC BUN/CREAT (test code = 20 RATIO [...] code = 2219) 23 U/L COMPREHENSIVE METABOLIC [id number] 00:00:00 Test Item Value Reference Range Interpretation Comments GLUCOSE (test code = 2217) 131 MG/DL BUN (test code = 2208) 13 MG/DL CREATININE (test code = 2214) 0.65 MG/DL eGFR AMER. (test code 113 ML/MIN/1.73 = 43033) eGFR NON- AMER. (test 97 ML/MIN/1.73 code = 40755) CALC BUN/CREAT (test code = 20 RATIO [...] (test code = 2219) 23 U/L HEMOGLOBIN [id number] 00:00:00 Test Item Value Reference Range Interpretation Comments HEMOGLOBIN A1c (test code = 34066) 6.8 % HEMOGLOBIN [id number] 00:00:00 Test Item Value Reference Range Interpretation Comments HEMOGLOBIN A1c (test code = 66927) 6.8 % LIPID [id number] 00:00:00 Test Item Value Reference Range Interpretation Comments CHOLESTEROL (test code = 2210) 303 MG/DL TRIGLYCERIDES (test code = 2232) 191 MG/DL HDL CHOLESTEROL (test code = 2220) 61 MG/DL CALC LDL CHOL (test code = 2237) 205 MG/DL RISK RATIO LDL/HDL (test code = 3.36 RATIO 2238) [id number] 00:00:00 Test Item Value Reference Range Interpretation Comments TSH, THIRD GENERATION (test code 0.769 UIU/ML = 2821) [id number] 00:00:00 Test Item Value Reference Range Interpretation Comments TSH, THIRD GENERATION (test code 0.769 UIU/ML = 2821) COMPREHENSIVE METABOLIC [id number] 00:00:00 Test Item Value Reference Range Interpretation Comments GLUCOSE (test code = 2217) 131 MG/DL BUN (test code = 2208) 13 MG/DL CREATININE (test code = 2214) 0.65 MG/DL eGFR AMER. (test code 113 ML/MIN/1.73 = 86327) eGFR NON- AMER. (test 97 ML/MIN/1.73 code = 92595) CALC BUN/CREAT (test code = 20 RATIO [...] (test code = 2219) 23 U/L HEMOGLOBIN [id number] 00:00:00 Test Item Value Reference Range Interpretation Comments HEMOGLOBIN A1c (test code = 37934) 6.8 % HEMOGLOBIN [id number] 00:00:00 Test Item Value Reference Range Interpretation Comments HEMOGLOBIN A1c (test code = 91624) 6.8 % HEMOGLOBIN [id number] 00:00:00 Test Item Value Reference Range Interpretation Comments HEMOGLOBIN A1c (test code = 02093) 6.8 % LIPID [id number] 00:00:00 Test Item Value Reference Range Interpretation Comments CHOLESTEROL (test code = 2210) 303 MG/DL TRIGLYCERIDES (test code = 2232) 191 MG/DL HDL CHOLESTEROL (test code = 2220) 61 MG/DL CALC LDL CHOL (test code = 2237) 205 MG/DL RISK RATIO LDL/HDL (test code = 3.36 RATIO 2238) LIPID [id number] 00:00:00 Test Item Value Reference Range Interpretation Comments CHOLESTEROL (test code = 2210) 303 MG/DL TRIGLYCERIDES (test code = 2232) 191 MG/DL HDL CHOLESTEROL (test code = 2220) 61 MG/DL CALC LDL CHOL (test code = 2237) 205 MG/DL RISK RATIO LDL/HDL (test code = 3.36 RATIO 2238) [id number] 00:00:00 Test Item Value Reference Range Interpretation Comments TSH, THIRD GENERATION (test code 0.769 UIU/ML = 2821) [id number] 00:00:00 Test Item Value Reference Range Interpretation Comments TSH, THIRD GENERATION (test code 0.769 UIU/ML = 2821) [id number] 00:00:00 Test Item Value Reference Range Interpretation Comments TSH, THIRD GENERATION (test code 0.769 UIU/ML = 2821) COMPREHENSIVE METABOLIC [id number] 00:00:00 Test Item Value Reference Range Interpretation Comments GLUCOSE (test code = 2217) 131 MG/DL BUN (test code = 2208) 13 MG/DL CREATININE (test code = 2214) 0.65 MG/DL eGFR AMER. (test code 113 ML/MIN/1.73 = 66620) eGFR NON- AMER. (test 97 ML/MIN/1.73 code = 92699) CALC BUN/CREAT (test code = 20 RATIO [...] code = 2219) 23 U/L COMPREHENSIVE METABOLIC [id number] 00:00:00 Test Item Value Reference Range Interpretation Comments GLUCOSE (test code = 2217) 131 MG/DL BUN (test code = 2208) 13 MG/DL CREATININE (test code = 2214) 0.65 MG/DL eGFR AMER. (test code 113 ML/MIN/1.73 = 59675) eGFR NON- AMER. (test 97 ML/MIN/1.73 code = 48467) CALC BUN/CREAT (test code = 20 RATIO [...] (test code = 2219) 23 U/L HEMOGLOBIN [id number] 00:00:00 Test Item Value Reference Range Interpretation Comments HEMOGLOBIN A1c (test code = 41711) 6.6 % HEMOGLOBIN [id number] 00:00:00 Test Item Value Reference Range Interpretation Comments HEMOGLOBIN A1c (test code = 33859) 6.6 % HEMOGLOBIN [id number] 00:00:00 Test Item Value Reference Range Interpretation Comments HEMOGLOBIN A1c (test code = 62351) 6.6 % LIPID [id number] 00:00:00 Test Item Value Reference Range Interpretation Comments CHOLESTEROL (test code = 2210) 261 MG/DL TRIGLYCERIDES (test code = 2232) 159 MG/DL HDL CHOLESTEROL (test code = 2220) 82 MG/DL CALC LDL CHOL (test code = 2237) 150 MG/DL RISK RATIO LDL/HDL (test code = 1.83 RATIO 2238) LIPID [id number] 00:00:00 Test Item Value Reference Range Interpretation Comments CHOLESTEROL (test code = 2210) 261 MG/DL TRIGLYCERIDES (test code = 2232) 159 MG/DL HDL CHOLESTEROL (test code = 2220) 82 MG/DL CALC LDL CHOL (test code = 2237) 150 MG/DL RISK RATIO LDL/HDL (test code = 1.83 RATIO 2238) COMPREHENSIVE METABOLIC [id number] 00:00:00 Test Item Value Reference Range Interpretation Comments GLUCOSE (test code = 2217) 144 MG/DL BUN (test code = 2208) 15 MG/DL CREATININE (test code = 2214) 0.85 MG/DL eGFR AMER. (test code 87 ML/MIN/1.73 = 60181) eGFR NON- AMER. (test 75 ML/MIN/1.73 code = 04039) CALC BUN/CREAT (test code = 18 RATIO [...] code = 2219) 50 U/L COMPREHENSIVE METABOLIC [id number] 00:00:00 Test Item Value Reference Range Interpretation Comments GLUCOSE (test code = 2217) 144 MG/DL BUN (test code = 2208) 15 MG/DL CREATININE (test code = 2214) 0.85 MG/DL eGFR AMER. (test code 87 ML/MIN/1.73 = 59718) eGFR NON- AMER. (test 75 ML/MIN/1.73 code = 75124) CALC BUN/CREAT (test code = 18 RATIO [...] THYROX. BIND. CAPAC. (test code 1.1 = 71545) T4 (THYROXINE) (test code = 4.3 UG/DL 2819) CORRECTED T4 (FTI) (test code = 3.9 UG/DL 2820) TSH, THIRD GENERATION (test 18.900 UIU/ML code = 2821) THYROID II PROFILE (T3U, T4, T7, TSH)2020-05-23 00:00:00 Test Item Value Reference Range Interpretation Comments T-UPTAKE (test code = 2817) 30.2 % THYROX. BIND. CAPAC. (test code 1.1 = 83894) T4 (THYROXINE) (test code = 4.3 UG/DL 2819) CORRECTED T4 (FTI) (test code = 3.9 UG/DL 2820) TSH, THIRD GENERATION (test 18.900 UIU/ML code = 2821) HEMOGLOBIN [id number] 00:00:00 Test Item Value Reference Range Interpretation Comments HEMOGLOBIN A1c (test code = 96770) 6.6 % HEMOGLOBIN [id number] 00:00:00 Test Item Value Reference Range Interpretation Comments HEMOGLOBIN A1c (test code = 46661) 6.6 % HEMOGLOBIN [id number] 00:00:00 Test Item Value Reference Range Interpretation Comments HEMOGLOBIN A1c (test code = 66235) 6.6 % LIPID [id number] 00:00:00 Test Item Value Reference Range Interpretation Comments CHOLESTEROL (test code = 2210) 261 MG/DL TRIGLYCERIDES (test code = 2232) 159 MG/DL HDL CHOLESTEROL (test code = 2220) 82 MG/DL CALC LDL CHOL (test code = 2237) 150 MG/DL RISK RATIO LDL/HDL (test code = 1.83 RATIO 2238) LIPID [id number] 00:00:00 Test Item Value Reference Range Interpretation Comments CHOLESTEROL (test code = 2210) 261 MG/DL TRIGLYCERIDES (test code = 2232) 159 MG/DL HDL CHOLESTEROL (test code = 2220) 82 MG/DL CALC LDL CHOL (test code = 2237) 150 MG/DL RISK RATIO LDL/HDL (test code = 1.83 RATIO 2238) COMPREHENSIVE METABOLIC [id number] 00:00:00 Test Item Value Reference Range Interpretation Comments GLUCOSE (test code = 2217) 144 MG/DL BUN (test code = 2208) 15 MG/DL CREATININE (test code = 2214) 0.85 MG/DL eGFR AMER. (test code 87 ML/MIN/1.73 = 71977) eGFR NON- AMER. (test 75 ML/MIN/1.73 code = 13271) CALC BUN/CREAT (test code = 18 RATIO [...] code = 2219) 50 U/L COMPREHENSIVE METABOLIC [id number] 00:00:00 Test Item Value Reference Range Interpretation Comments GLUCOSE (test code = 2217) 144 MG/DL BUN (test code = 2208) 15 MG/DL CREATININE (test code = 2214) 0.85 MG/DL eGFR AMER. (test code 87 ML/MIN/1.73 = 69650) eGFR NON- AMER. (test 75 ML/MIN/1.73 code = 95087) CALC BUN/CREAT (test code = 18 RATIO [...] THYROX. BIND. CAPAC. (test code 1.1 = 38859) T4 (THYROXINE) (test code = 4.3 UG/DL 281) CORRECTED T4 (FTI) (test code = 3.9 UG/DL 2820) TSH, THIRD GENERATION (test 18.900 UIU/ML code = 2821) THYROID II PROFILE (T3U, T4, T7, TSH)2020-05-23 00:00:00 Test Item Value Reference Range Interpretation Comments T-UPTAKE (test code = 281) 30.2 % THYROX. BIND. CAPAC. (test code 1.1 = 92315) T4 (THYROXINE) (test code = 4.3 UG/DL 281) CORRECTED T4 (FTI) (test code = 3.9 UG/DL 2820) TSH, THIRD GENERATION (test 18.900 UIU/ML code = 2821) HEMOGLOBIN [id number] 00:00:00 Test Item Value Reference Range Interpretation Comments HEMOGLOBIN A1c (test code = 15797) 6.6 % HEMOGLOBIN [id number] 00:00:00 Test Item Value Reference Range Interpretation Comments HEMOGLOBIN A1c (test code = 62939) 6.6 % LIPID [id number] 00:00:00 Test Item Value Reference Range Interpretation Comments CHOLESTEROL (test code = 2210) 261 MG/DL TRIGLYCERIDES (test code = 2232) 159 MG/DL HDL CHOLESTEROL (test code = 2220) 82 MG/DL CALC LDL CHOL (test code = 2237) 150 MG/DL RISK RATIO LDL/HDL (test code = 1.83 RATIO 2238) COMPREHENSIVE METABOLIC [id number] 00:00:00 Test Item Value Reference Range Interpretation Comments GLUCOSE (test code = 2217) 144 MG/DL BUN (test code = 2208) 15 MG/DL CREATININE (test code = 2214) 0.85 MG/DL eGFR AMER. (test code 87 ML/MIN/1.73 = 02614) eGFR NON- AMER. (test 75 ML/MIN/1.73 code = 87927) CALC BUN/CREAT (test code = 18 RATIO [...] THYROX. BIND. CAPAC. (test code 1.1 = 47324) T4 (THYROXINE) (test code = 4.3 UG/DL 2819) CORRECTED T4 (FTI) (test code = 3.9 UG/DL 2820) TSH, THIRD GENERATION (test 18.900 UIU/ML code = 2821) HEMOGLOBIN [id number] 00:00:00 Test Item Value Reference Range Interpretation Comments HEMOGLOBIN A1c (test code = 87563) 6.6 % HEMOGLOBIN [id number] 00:00:00 Test Item Value Reference Range Interpretation Comments HEMOGLOBIN A1c (test code = 13213) 6.6 % HEMOGLOBIN [id number] 00:00:00 Test Item Value Reference Range Interpretation Comments HEMOGLOBIN A1c (test code = 29654) 6.6 % LIPID [id number] 00:00:00 Test Item Value Reference Range Interpretation Comments CHOLESTEROL (test code = 2210) 261 MG/DL TRIGLYCERIDES (test code = 2232) 159 MG/DL HDL CHOLESTEROL (test code = 2220) 82 MG/DL CALC LDL CHOL (test code = 2237) 150 MG/DL RISK RATIO LDL/HDL (test code = 1.83 RATIO 2238) LIPID [id number] 00:00:00 Test Item Value Reference Range Interpretation Comments CHOLESTEROL (test code = 2210) 261 MG/DL TRIGLYCERIDES (test code = 2232) 159 MG/DL HDL CHOLESTEROL (test code = 2220) 82 MG/DL CALC LDL CHOL (test code = 2237) 150 MG/DL RISK RATIO LDL/HDL (test code = 1.83 RATIO 2238) COMPREHENSIVE METABOLIC [id number] 00:00:00 Test Item Value Reference Range Interpretation Comments GLUCOSE (test code = 2217) 144 MG/DL BUN (test code = 2208) 15 MG/DL CREATININE (test code = 2214) 0.85 MG/DL eGFR AMER. (test code 87 ML/MIN/1.73 = 55482) eGFR NON- AMER. (test 75 ML/MIN/1.73 code = 54783) CALC BUN/CREAT (test code = 18 RATIO [...] code = 2219) 50 U/L COMPREHENSIVE METABOLIC [id number] 00:00:00 Test Item Value Reference Range Interpretation Comments GLUCOSE (test code = 2217) 144 MG/DL BUN (test code = 2208) 15 MG/DL CREATININE (test code = 2214) 0.85 MG/DL eGFR AMER. (test code 87 ML/MIN/1.73 = 41229) eGFR NON- AMER. (test 75 ML/MIN/1.73 code = 49936) CALC BUN/CREAT (test code = 18 RATIO [...] THYROX. BIND. CAPAC. (test code 1.1 = 29788) T4 (THYROXINE) (test code = 4.3 UG/DL 2819) CORRECTED T4 (FTI) (test code = 3.9 UG/DL 2820) TSH, THIRD GENERATION (test 18.900 UIU/ML code = 2821) THYROID II PROFILE (T3U, T4, T7, TSH)2020-05-23 00:00:00 Test Item Value Reference Range Interpretation Comments T-UPTAKE (test code = 2817) 30.2 % THYROX. BIND. CAPAC. (test code 1.1 = 80898) T4 (THYROXINE) (test code = 4.3 UG/DL 2819) CORRECTED T4 (FTI) (test code = 3.9 UG/DL 2820) TSH, THIRD GENERATION (test 18.900 UIU/ML code = 2821) HEMOGLOBIN [id number] 00:00:00 Test Item Value Reference Range Interpretation Comments HEMOGLOBIN A1c (test code = 98058) 6.7 % HEMOGLOBIN [id number] 00:00:00 Test Item Value Reference Range Interpretation Comments HEMOGLOBIN A1c (test code = 22712) 6.7 % HEMOGLOBIN [id number] 00:00:00 Test Item Value Reference Range Interpretation Comments HEMOGLOBIN A1c (test code = 35876) 6.7 % LIPID [id number] 00:00:00 Test Item Value Reference Range Interpretation Comments CHOLESTEROL (test code = 2210) 267 MG/DL TRIGLYCERIDES (test code = 2232) 137 MG/DL HDL CHOLESTEROL (test code = 2220) 48 MG/DL CALC LDL CHOL (test code = 2237) 192 MG/DL RISK RATIO LDL/HDL (test code = 4.00 RATIO 2238) LIPID [id number] 00:00:00 Test Item Value Reference Range Interpretation Comments CHOLESTEROL (test code = 2210) 267 MG/DL TRIGLYCERIDES (test code = 2232) 137 MG/DL HDL CHOLESTEROL (test code = 2220) 48 MG/DL CALC LDL CHOL (test code = 2237) 192 MG/DL RISK RATIO LDL/HDL (test code = 4.00 RATIO 2238) COMPREHENSIVE METABOLIC [id number] 00:00:00 Test Item Value Reference Range Interpretation Comments GLUCOSE (test code = 2217) 155 MG/DL BUN (test code = 2208) 14 MG/DL CREATININE (test code = 2214) 0.52 MG/DL eGFR AMER. (test code 122 ML/MIN/1.73 = 09354) eGFR NON- AMER. (test 105 ML/MIN/1.73 code = 49271) CALC BUN/CREAT (test code = 27 RATIO [...] code = 2219) 27 U/L COMPREHENSIVE METABOLIC [id number] 00:00:00 Test Item Value Reference Range Interpretation Comments GLUCOSE (test code = 2217) 155 MG/DL BUN (test code = 2208) 14 MG/DL CREATININE (test code = 2214) 0.52 MG/DL eGFR AMER. (test code 122 ML/MIN/1.73 = 21726) eGFR NON- AMER. (test 105 ML/MIN/1.73 code = 30538) CALC BUN/CREAT (test code = 27 RATIO [...] THYROX. BIND. CAPAC. (test code 1.0 = 08391) T4 (THYROXINE) (test code = 4.7 UG/DL 2819) CORRECTED T4 (FTI) (test code = 4.7 UG/DL 2820) TSH, THIRD GENERATION (test code 0.201 UIU/ML = 2821) THYROID II PROFILE (T3U, T4, T7, TSH)2019 00:00:00 Test Item Value Reference Range Interpretation Comments T-UPTAKE (test code = 2817) 33.1 % THYROX. BIND. CAPAC. (test code 1.0 = 60433) T4 (THYROXINE) (test code = 4.7 UG/DL 2819) CORRECTED T4 (FTI) (test code = 4.7 UG/DL 2820) TSH, THIRD GENERATION (test code 0.201 UIU/ML = 2821) HEMOGLOBIN [id number] 00:00:00 Test Item Value Reference Range Interpretation Comments HEMOGLOBIN A1c (test code = 45690) 6.7 % HEMOGLOBIN [id number] 00:00:00 Test Item Value Reference Range Interpretation Comments HEMOGLOBIN A1c (test code = 05103) 6.7 % HEMOGLOBIN [id number] 00:00:00 Test Item Value Reference Range Interpretation Comments HEMOGLOBIN A1c (test code = 35879) 6.7 % LIPID [id number] 00:00:00 Test Item Value Reference Range Interpretation Comments CHOLESTEROL (test code = 2210) 267 MG/DL TRIGLYCERIDES (test code = 2232) 137 MG/DL HDL CHOLESTEROL (test code = 2220) 48 MG/DL CALC LDL CHOL (test code = 2237) 192 MG/DL RISK RATIO LDL/HDL (test code = 4.00 RATIO 2238) LIPID [id number] 00:00:00 Test Item Value Reference Range Interpretation Comments CHOLESTEROL (test code = 2210) 267 MG/DL TRIGLYCERIDES (test code = 2232) 137 MG/DL HDL CHOLESTEROL (test code = 2220) 48 MG/DL CALC LDL CHOL (test code = 2237) 192 MG/DL RISK RATIO LDL/HDL (test code = 4.00 RATIO 2238) COMPREHENSIVE METABOLIC [id number] 00:00:00 Test Item Value Reference Range Interpretation Comments GLUCOSE (test code = 2217) 155 MG/DL BUN (test code = 2208) 14 MG/DL CREATININE (test code = 2214) 0.52 MG/DL eGFR AMER. (test code 122 ML/MIN/1.73 = 52860) eGFR NON- AMER. (test 105 ML/MIN/1.73 code = 50793) CALC BUN/CREAT (test code = 27 RATIO [...] code = 2219) 27 U/L COMPREHENSIVE METABOLIC [id number] 00:00:00 Test Item Value Reference Range Interpretation Comments GLUCOSE (test code = 2217) 155 MG/DL BUN (test code = 2208) 14 MG/DL CREATININE (test code = 2214) 0.52 MG/DL eGFR AMER. (test code 122 ML/MIN/1.73 = 84839) eGFR NON- AMER. (test 105 ML/MIN/1.73 code = 92719) CALC BUN/CREAT (test code = 27 RATIO [...] THYROX. BIND. CAPAC. (test code 1.0 = 75962) T4 (THYROXINE) (test code = 4.7 UG/DL 2819) CORRECTED T4 (FTI) (test code = 4.7 UG/DL 2820) TSH, THIRD GENERATION (test code 0.201 UIU/ML = 2821) THYROID II PROFILE (T3U, T4, T7, TSH)2019 00:00:00 Test Item Value Reference Range Interpretation Comments T-UPTAKE (test code = 2817) 33.1 % THYROX. BIND. CAPAC. (test code 1.0 = 38061) T4 (THYROXINE) (test code = 4.7 UG/DL 2819) CORRECTED T4 (FTI) (test code = 4.7 UG/DL 2820) TSH, THIRD GENERATION (test code 0.201 UIU/ML = 2821) HEMOGLOBIN [id number] 00:00:00 Test Item Value Reference Range Interpretation Comments HEMOGLOBIN A1c (test code = 09796) 6.7 % HEMOGLOBIN [id number] 00:00:00 Test Item Value Reference Range Interpretation Comments HEMOGLOBIN A1c (test code = 55161) 6.7 % LIPID [id number] 00:00:00 Test Item Value Reference Range Interpretation Comments CHOLESTEROL (test code = 2210) 267 MG/DL TRIGLYCERIDES (test code = 2232) 137 MG/DL HDL CHOLESTEROL (test code = 2220) 48 MG/DL CALC LDL CHOL (test code = 2237) 192 MG/DL RISK RATIO LDL/HDL (test code = 4.00 RATIO 2238) COMPREHENSIVE METABOLIC [id number] 00:00:00 Test Item Value Reference Range Interpretation Comments GLUCOSE (test code = 2217) 155 MG/DL BUN (test code = 2208) 14 MG/DL CREATININE (test code = 2214) 0.52 MG/DL eGFR AMER. (test code 122 ML/MIN/1.73 = 55471) eGFR NON- AMER. (test 105 ML/MIN/1.73 code = 13655) CALC BUN/CREAT (test code = 27 RATIO [...] THYROX. BIND. CAPAC. (test code 1.0 = 11818) T4 (THYROXINE) (test code = 4.7 UG/DL 2819) CORRECTED T4 (FTI) (test code = 4.7 UG/DL 2820) TSH, THIRD GENERATION (test code 0.201 UIU/ML = 2821) HEMOGLOBIN [id number] 00:00:00 Test Item Value Reference Range Interpretation Comments HEMOGLOBIN A1c (test code = 24969) 6.7 % HEMOGLOBIN [id number] 00:00:00 Test Item Value Reference Range Interpretation Comments HEMOGLOBIN A1c (test code = 55475) 6.7 % HEMOGLOBIN [id number] 00:00:00 Test Item Value Reference Range Interpretation Comments HEMOGLOBIN A1c (test code = 70169) 6.7 % LIPID [id number] 00:00:00 Test Item Value Reference Range Interpretation Comments CHOLESTEROL (test code = 2210) 267 MG/DL TRIGLYCERIDES (test code = 2232) 137 MG/DL HDL CHOLESTEROL (test code = 2220) 48 MG/DL CALC LDL CHOL (test code = 2237) 192 MG/DL RISK RATIO LDL/HDL (test code = 4.00 RATIO 2238) LIPID [id number] 00:00:00 Test Item Value Reference Range Interpretation Comments CHOLESTEROL (test code = 2210) 267 MG/DL TRIGLYCERIDES (test code = 2232) 137 MG/DL HDL CHOLESTEROL (test code = 2220) 48 MG/DL CALC LDL CHOL (test code = 2237) 192 MG/DL RISK RATIO LDL/HDL (test code = 4.00 RATIO 2238) COMPREHENSIVE METABOLIC [id number] 00:00:00 Test Item Value Reference Range Interpretation Comments GLUCOSE (test code = 2217) 155 MG/DL BUN (test code = 2208) 14 MG/DL CREATININE (test code = 2214) 0.52 MG/DL eGFR AMER. (test code 122 ML/MIN/1.73 = 42311) eGFR NON- AMER. (test 105 ML/MIN/1.73 code = 65021) CALC BUN/CREAT (test code = 27 RATIO [...] code = 2219) 27 U/L COMPREHENSIVE METABOLIC [id number] 00:00:00 Test Item Value Reference Range Interpretation Comments GLUCOSE (test code = 2217) 155 MG/DL BUN (test code = 2208) 14 MG/DL CREATININE (test code = 2214) 0.52 MG/DL eGFR AMER. (test code 122 ML/MIN/1.73 = 09413) eGFR NON- AMER. (test 105 ML/MIN/1.73 code = 75697) CALC BUN/CREAT (test code = 27 RATIO [...] THYROX. BIND. CAPAC. (test code 1.0 = 63061) T4 (THYROXINE) (test code = 4.7 UG/DL 2819) CORRECTED T4 (FTI) (test code = 4.7 UG/DL 2820) TSH, THIRD GENERATION (test code 0.201 UIU/ML = 2821) THYROID II PROFILE (T3U, T4, T7, TSH)2019 00:00:00 Test Item Value Reference Range Interpretation Comments T-UPTAKE (test code = 2816) 33.1 % THYROX. BIND. CAPAC. (test code 1.0 = 26054) T4 (THYROXINE) (test code = 4.7 UG/DL 2819) CORRECTED T4 (FTI) (test code = 4.7 UG/DL 2820) TSH, THIRD GENERATION (test code 0.201 UIU/ML = 2821) SARS-CoV-2 (COVID-19) by RT-PCR (HIGH RISK)2019-09-18 00:00:00 Test Item Value Reference Range Interpretation Comments SARS-CoV-2 INTERPRETATION (test NEGATIVE code = 62728) SOURCE (test code = 41576) NOT SPECIFIED SARS-CoV-2 (COVID-19) by RT-PCR (HIGH RISK)2019-09-18 00:00:00 Test Item Value Reference Range Interpretation Comments SARS-CoV-2 INTERPRETATION (test NEGATIVE code = 78989) SOURCE (test code = 85767) NOT SPECIFIED SARS-CoV-2 (COVID-19) by RT-PCR (HIGH RISK)2019-09-18 00:00:00 Test Item Value Reference Range Interpretation Comments SARS-CoV-2 INTERPRETATION (test NEGATIVE code = 24920) SOURCE (test code = 32494) NOT SPECIFIED SARS-CoV-2 (COVID-19) by RT-PCR (HIGH RISK)2019-09-18 00:00:00 Test Item Value Reference Range Interpretation Comments SARS-CoV-2 INTERPRETATION (test NEGATIVE code = 05649) SOURCE (test code = 50017) NOT SPECIFIED SARS-CoV-2 (COVID-19) by RT-PCR (HIGH RISK)2019-09-18 00:00:00 Test Item Value Reference Range Interpretation Comments SARS-CoV-2 INTERPRETATION (test NEGATIVE code = 43421) SOURCE (test code = 25795) NOT SPECIFIED SARS-CoV-2 (COVID-19) by RT-PCR (HIGH RISK)2019-09-18 00:00:00 Test Item Value Reference Range Interpretation Comments SARS-CoV-2 INTERPRETATION (test NEGATIVE code = 78602) SOURCE (test code = 96014) NOT SPECIFIED SARS-CoV-2 (COVID-19) by RT-PCR (HIGH RISK)2019-09-18 00:00:00 Test Item Value Reference Range Interpretation Comments SARS-CoV-2 INTERPRETATION (test NEGATIVE code = 51718) SOURCE (test code = 25044) NOT SPECIFIED [id number] 00:00:00 Test Item Value Reference Range Interpretation Comments TSH, THIRD GENERATION (test code 2.490 UIU/ML = 2821) [id number] 00:00:00 Test Item Value Reference Range Interpretation Comments TSH, THIRD GENERATION (test code 2.490 UIU/ML = 2821) [id number] 00:00:00 Test Item Value Reference Range Interpretation Comments TSH, THIRD GENERATION (test code 2.490 UIU/ML = 2821) HEMOGLOBIN [id number] 00:00:00 Test Item Value Reference Range Interpretation Comments HEMOGLOBIN A1c (test code = 21456) 6.4 % HEMOGLOBIN [id number] 00:00:00 Test Item Value Reference Range Interpretation Comments HEMOGLOBIN A1c (test code = 92152) 6.4 % HEMOGLOBIN [id number] 00:00:00 Test Item Value Reference Range Interpretation Comments HEMOGLOBIN A1c (test code = 28490) 6.4 % COMPREHENSIVE METABOLIC [id number] 00:00:00 Test Item Value Reference Range Interpretation Comments GLUCOSE (test code = 2217) 206 MG/DL BUN (test code = 2208) 23 MG/DL CREATININE (test code = 2214) 0.67 MG/DL eGFR AMER. (test code 112 ML/MIN/1.73 = 64188) eGFR NON- AMER. (test 97 ML/MIN/1.73 code = 33990) CALC BUN/CREAT (test code = 34 RATIO [...] code = 2219) 25 U/L COMPREHENSIVE METABOLIC [id number] 00:00:00 Test Item Value Reference Range Interpretation Comments GLUCOSE (test code = 2217) 206 MG/DL BUN (test code = 2208) 23 MG/DL CREATININE (test code = 2214) 0.67 MG/DL eGFR AMER. (test code 112 ML/MIN/1.73 = 82210) eGFR NON- AMER. (test 97 ML/MIN/1.73 code = 13706) CALC BUN/CREAT (test code = 34 RATIO [...] ALT (test code = 2219) 25 U/L [id number] 00:00:00 Test Item Value Reference Range Interpretation Comments TSH, THIRD GENERATION (test code 2.490 UIU/ML = 2821) [id number] 00:00:00 Test Item Value Reference Range Interpretation Comments TSH, THIRD GENERATION (test code 2.490 UIU/ML = 2821) [id number] 00:00:00 Test Item Value Reference Range Interpretation Comments TSH, THIRD GENERATION (test code 2.490 UIU/ML = 2821) HEMOGLOBIN [id number] 00:00:00 Test Item Value Reference Range Interpretation Comments HEMOGLOBIN A1c (test code = 87477) 6.4 % HEMOGLOBIN [id number] 00:00:00 Test Item Value Reference Range Interpretation Comments HEMOGLOBIN A1c (test code = 29945) 6.4 % HEMOGLOBIN [id number] 00:00:00 Test Item Value Reference Range Interpretation Comments HEMOGLOBIN A1c (test code = 46878) 6.4 % COMPREHENSIVE METABOLIC [id number] 00:00:00 Test Item Value Reference Range Interpretation Comments GLUCOSE (test code = 2217) 206 MG/DL BUN (test code = 2208) 23 MG/DL CREATININE (test code = 2214) 0.67 MG/DL eGFR AMER. (test code 112 ML/MIN/1.73 = 56533) eGFR NON- AMER. (test 97 ML/MIN/1.73 code = 37640) CALC BUN/CREAT (test code = 34 RATIO [...] code = 2219) 25 U/L COMPREHENSIVE METABOLIC [id number] 00:00:00 Test Item Value Reference Range Interpretation Comments GLUCOSE (test code = 2217) 206 MG/DL BUN (test code = 2208) 23 MG/DL CREATININE (test code = 2214) 0.67 MG/DL eGFR AMER. (test code 112 ML/MIN/1.73 = 88267) eGFR NON- AMER. (test 97 ML/MIN/1.73 code = 36572) CALC BUN/CREAT (test code = 34 RATIO [...] ALT (test code = 2219) 25 U/L [id number] 00:00:00 Test Item Value Reference Range Interpretation Comments TSH, THIRD GENERATION (test code 2.490 UIU/ML = 2821) [id number] 00:00:00 Test Item Value Reference Range Interpretation Comments TSH, THIRD GENERATION (test code 2.490 UIU/ML = 2821) HEMOGLOBIN [id number] 00:00:00 Test Item Value Reference Range Interpretation Comments HEMOGLOBIN A1c (test code = 43259) 6.4 % HEMOGLOBIN [id number] 00:00:00 Test Item Value Reference Range Interpretation Comments HEMOGLOBIN A1c (test code = 67956) 6.4 % COMPREHENSIVE METABOLIC [id number] 00:00:00 Test Item Value Reference Range Interpretation Comments GLUCOSE (test code = 2217) 206 MG/DL BUN (test code = 2208) 23 MG/DL CREATININE (test code = 2214) 0.67 MG/DL eGFR AMER. (test code 112 ML/MIN/1.73 = 76342) eGFR NON- AMER. (test 97 ML/MIN/1.73 code = 72022) CALC BUN/CREAT (test code = 34 RATIO [...] ALT (test code = 2219) 25 U/L [id number] 00:00:00 Test Item Value Reference Range Interpretation Comments TSH, THIRD GENERATION (test code 2.490 UIU/ML = 2821) [id number] 00:00:00 Test Item Value Reference Range Interpretation Comments TSH, THIRD GENERATION (test code 2.490 UIU/ML = 2821) [id number] 00:00:00 Test Item Value Reference Range Interpretation Comments TSH, THIRD GENERATION (test code 2.490 UIU/ML = 2821) HEMOGLOBIN [id number] 00:00:00 Test Item Value Reference Range Interpretation Comments HEMOGLOBIN A1c (test code = 27497) 6.4 % HEMOGLOBIN [id number] 00:00:00 Test Item Value Reference Range Interpretation Comments HEMOGLOBIN A1c (test code = 32486) 6.4 % HEMOGLOBIN [id number] 00:00:00 Test Item Value Reference Range Interpretation Comments HEMOGLOBIN A1c (test code = 97568) 6.4 % COMPREHENSIVE METABOLIC [id number] 00:00:00 Test Item Value Reference Range Interpretation Comments GLUCOSE (test code = 2217) 206 MG/DL BUN (test code = 2208) 23 MG/DL CREATININE (test code = 2214) 0.67 MG/DL eGFR AMER. (test code 112 ML/MIN/1.73 = 35167) eGFR NON- AMER. (test 97 ML/MIN/1.73 code = 81235) CALC BUN/CREAT (test code = 34 RATIO [...] code = 2219) 25 U/L COMPREHENSIVE METABOLIC [id number] 00:00:00 Test Item Value Reference Range Interpretation Comments GLUCOSE (test code = 2217) 206 MG/DL BUN (test code = 2208) 23 MG/DL CREATININE (test code = 2214) 0.67 MG/DL eGFR AMER. (test code 112 ML/MIN/1.73 = 32258) eGFR NON- AMER. (test 97 ML/MIN/1.73 code = 63597) CALC BUN/CREAT (test code = 34 RATIO [...] = 2219) 25 U/L VAGINAL PATHOGENS DNA [id number] 00:00:00 Test Item Value Reference Range Interpretation Comments MARK SPECIES (test code = 32740) NEGATIVE G. VAGINALIS (test code = 58955) NEGATIVE T. VAGINALIS (test code = 55726) NEGATIVE VAGINAL PATHOGENS DNA [id number] 00:00:00 Test Item Value Reference Range Interpretation Comments MARK SPECIES (test code = 33310) NEGATIVE G. VAGINALIS (test code = 45529) NEGATIVE T. VAGINALIS (test code = 02479) NEGATIVE VAGINAL PATHOGENS DNA [id number] 00:00:00 Test Item Value Reference Range Interpretation Comments MARK SPECIES (test code = 26271) NEGATIVE G. VAGINALIS (test code = 66988) NEGATIVE T. VAGINALIS (test code = 66147) NEGATIVE VAGINAL PATHOGENS DNA [id number] 00:00:00 Test Item Value Reference Range Interpretation Comments MARK SPECIES (test code = 65172) NEGATIVE G. VAGINALIS (test code = 02938) NEGATIVE T. VAGINALIS (test code = 91524) NEGATIVE VAGINAL PATHOGENS DNA [id number] 00:00:00 Test Item Value Reference Range Interpretation Comments MARK SPECIES (test code = 79204) NEGATIVE G. VAGINALIS (test code = 05554) NEGATIVE T. VAGINALIS (test code = 45886) NEGATIVE VAGINAL PATHOGENS DNA [id number] 00:00:00 Test Item Value Reference Range Interpretation Comments MARK SPECIES (test code = 04577) NEGATIVE G. VAGINALIS (test code = 29978) NEGATIVE T. VAGINALIS (test code = 45037) NEGATIVE VAGINAL PATHOGENS DNA [id number] 00:00:00 Test Item Value Reference Range Interpretation Comments MARK SPECIES (test code = 22377) NEGATIVE G. VAGINALIS (test code = 75180) NEGATIVE T. VAGINALIS (test code = 55538) NEGATIVE HEMOGLOBIN A1c [ADDED]2018-12-01 00:00:00 Test Item Value Reference Range Interpretation Comments HEMOGLOBIN A1c (test code = 77513) 6.7 % HEMOGLOBIN A1c [ADDED]2018-12-01 00:00:00 Test Item Value Reference Range Interpretation Comments HEMOGLOBIN A1c (test code = 22824) 6.7 % HEMOGLOBIN A1c [ADDED]2018-12-01 00:00:00 Test Item Value Reference Range Interpretation Comments HEMOGLOBIN A1c (test code = 06507) 6.7 % COMPREHENSIVE METABOLIC PANEL [ADDED]2018-12-01 00:00:00 Test Item Value Reference Range Interpretation Comments GLUCOSE (test code = 2217) 136 MG/DL BUN (test code = 2208) 15 MG/DL CREATININE (test code = 2214) 0.64 MG/DL eGFR AMER. (test code 115 ML/MIN/1.73 = 84411) eGFR NON- AMER. (test 99 ML/MIN/1.73 code = 35224) CALC BUN/CREAT (test code = 23 RATIO [...] eGFR AMER. (test code 115 ML/MIN/1.73 = 81757) eGFR NON- AMER. (test 99 ML/MIN/1.73 code = 22202) CALC BUN/CREAT (test code = 23 RATIO [...] Interpretation Comments HEMOGLOBIN A1c (test code = 00330) 6.7 % HEMOGLOBIN A1c [ADDED]2018-12-01 00:00:00 Test Item Value Reference Range Interpretation Comments HEMOGLOBIN A1c (test code = 25502) 6.7 % HEMOGLOBIN A1c [ADDED]2018-12-01 00:00:00 Test Item Value Reference Range Interpretation Comments HEMOGLOBIN A1c (test code = 73327) 6.7 % COMPREHENSIVE METABOLIC PANEL [ADDED]2018-12-01 00:00:00 Test Item Value Reference Range Interpretation Comments GLUCOSE (test code = 2217) 136 MG/DL BUN (test code = 2208) 15 MG/DL CREATININE (test code = 2214) 0.64 MG/DL eGFR AMER. (test code 115 ML/MIN/1.73 = 51231) eGFR NON- AMER. (test 99 ML/MIN/1.73 code = 41422) CALC BUN/CREAT (test code = 23 RATIO [...] eGFR AMER. (test code 115 ML/MIN/1.73 = 63513) eGFR NON- AMER. (test 99 ML/MIN/1.73 code = 39445) CALC BUN/CREAT (test code = 23 RATIO [...] Interpretation Comments HEMOGLOBIN A1c (test code = 74790) 6.7 % HEMOGLOBIN A1c [ADDED]2018-12-01 00:00:00 Test Item Value Reference Range Interpretation Comments HEMOGLOBIN A1c (test code = 78083) 6.7 % COMPREHENSIVE METABOLIC PANEL [ADDED]2018-12-01 00:00:00 Test Item Value Reference Range Interpretation Comments GLUCOSE (test code = 2217) 136 MG/DL BUN (test code = 2208) 15 MG/DL CREATININE (test code = 2214) 0.64 MG/DL eGFR AMER. (test code 115 ML/MIN/1.73 = 09904) eGFR NON- AMER. (test 99 ML/MIN/1.73 code = 44072) CALC BUN/CREAT (test code = 23 RATIO 5) SODIUM (test code = 2231) [...] Interpretation Comments HEMOGLOBIN A1c (test code = 71149) 6.7 % HEMOGLOBIN A1c [ADDED]2018-12-01 00:00:00 Test Item Value Reference Range Interpretation Comments HEMOGLOBIN A1c (test code = 98507) 6.7 % HEMOGLOBIN A1c [ADDED]2018-12-01 00:00:00 Test Item Value Reference Range Interpretation Comments HEMOGLOBIN A1c (test code = 15741) 6.7 % COMPREHENSIVE METABOLIC PANEL [ADDED]2018-12-01 00:00:00 Test Item Value Reference Range Interpretation Comments GLUCOSE (test code = 2217) 136 MG/DL BUN (test code = 2208) 15 MG/DL CREATININE (test code = 2214) 0.64 MG/DL eGFR AMER. (test code 115 ML/MIN/1.73 = 34337) eGFR NON- AMER. (test 99 ML/MIN/1.73 code = 37249) CALC BUN/CREAT (test code = 23 RATIO [...] eGFR AMER. (test code 115 ML/MIN/1.73 = 93584) eGFR NON- AMER. (test 99 ML/MIN/1.73 code = 64235) CALC BUN/CREAT (test code = 23 RATIO [...] code 1.280 UIU/ML = 2821) CBC W/AUTO [id number] 00:00:00 Test Item Value Reference Range Interpretation [...] code = 1015) 346 K/UL CBC W/AUTO [id number] 00:00:00 Test Item Value Reference Range Interpretation [...] code = 1015) 346 K/UL CBC W/AUTO [id number] 00:00:00 Test Item Value Reference Range Interpretation [...] (test code = 1015) 346 K/UL HEMOGLOBIN [id number] 00:00:00 Test Item Value Reference Range Interpretation Comments HEMOGLOBIN A1c (test code = 28727) 5.9 % HEMOGLOBIN [id number] 00:00:00 Test Item Value Reference Range Interpretation Comments HEMOGLOBIN A1c (test code = 18328) 5.9 % HEMOGLOBIN [id number] 00:00:00 Test Item Value Reference Range Interpretation Comments HEMOGLOBIN A1c (test code = 43601) 5.9 % LIPID [id number] 00:00:00 Test Item Value Reference Range Interpretation Comments CHOLESTEROL (test code = 2210) 318 MG/DL TRIGLYCERIDES (test code = 2232) 263 MG/DL HDL CHOLESTEROL (test code = 2220) 51 MG/DL CALC LDL CHOL (test code = 2237) 214 MG/DL RISK RATIO LDL/HDL (test code = 4.20 RATIO 2238) LIPID [id number] 00:00:00 Test Item Value Reference Range Interpretation Comments CHOLESTEROL (test code = 2210) 318 MG/DL TRIGLYCERIDES (test code = 2232) 263 MG/DL HDL CHOLESTEROL (test code = 2220) 51 MG/DL CALC LDL CHOL (test code = 2237) 214 MG/DL RISK RATIO LDL/HDL (test code = 4.20 RATIO 2238) COMPREHENSIVE METABOLIC [id number] 00:00:00 Test Item Value Reference Range Interpretation Comments GLUCOSE (test code = 2217) 113 MG/DL BUN (test code = 2208) 18 MG/DL CREATININE (test code = 2214) 0.70 MG/DL eGFR AMER. (test code 111 ML/MIN/1.73 = 13805) eGFR NON- AMER. (test 96 ML/MIN/1.73 code = 53853) CALC BUN/CREAT (test code = 26 RATIO [...] code = 2219) 31 U/L COMPREHENSIVE METABOLIC [id number] 00:00:00 Test Item Value Reference Range Interpretation Comments GLUCOSE (test code = 2217) 113 MG/DL BUN (test code = 2208) 18 MG/DL CREATININE (test code = 2214) 0.70 MG/DL eGFR AMER. (test code 111 ML/MIN/1.73 = 94616) eGFR NON- AMER. (test 96 ML/MIN/1.73 code = 24296) CALC BUN/CREAT (test code = 26 RATIO [...] ALT (test code = 2219) 31 U/L [id number] 00:00:00 Test Item Value Reference Range Interpretation Comments TSH, THIRD GENERATION (test code 2.520 UIU/ML = 2821) [id number] 00:00:00 Test Item Value Reference Range Interpretation Comments TSH, THIRD GENERATION (test code 2.520 UIU/ML = 2821) [id number] 00:00:00 Test Item Value Reference Range Interpretation Comments TSH, THIRD GENERATION (test code 2.520 UIU/ML = 2821) CBC W/AUTO [id number] 00:00:00 Test Item Value Reference Range Interpretation [...] code = 1015) 346 K/UL CBC W/AUTO [id number] 00:00:00 Test Item Value Reference Range Interpretation [...] code = 1015) 346 K/UL CBC W/AUTO [id number] 00:00:00 Test Item Value Reference Range Interpretation [...] (test code = 1015) 346 K/UL HEMOGLOBIN [id number] 00:00:00 Test Item Value Reference Range Interpretation Comments HEMOGLOBIN A1c (test code = 08202) 5.9 % HEMOGLOBIN [id number] 00:00:00 Test Item Value Reference Range Interpretation Comments HEMOGLOBIN A1c (test code = 76994) 5.9 % HEMOGLOBIN [id number] 00:00:00 Test Item Value Reference Range Interpretation Comments HEMOGLOBIN A1c (test code = 16487) 5.9 % LIPID [id number] 00:00:00 Test Item Value Reference Range Interpretation Comments CHOLESTEROL (test code = 2210) 318 MG/DL TRIGLYCERIDES (test code = 2232) 263 MG/DL HDL CHOLESTEROL (test code = 2220) 51 MG/DL CALC LDL CHOL (test code = 2237) 214 MG/DL RISK RATIO LDL/HDL (test code = 4.20 RATIO 2238) LIPID [id number] 00:00:00 Test Item Value Reference Range Interpretation Comments CHOLESTEROL (test code = 2210) 318 MG/DL TRIGLYCERIDES (test code = 2232) 263 MG/DL HDL CHOLESTEROL (test code = 2220) 51 MG/DL CALC LDL CHOL (test code = 2237) 214 MG/DL RISK RATIO LDL/HDL (test code = 4.20 RATIO 2238) COMPREHENSIVE METABOLIC [id number] 00:00:00 Test Item Value Reference Range Interpretation Comments GLUCOSE (test code = 2217) 113 MG/DL BUN (test code = 2208) 18 MG/DL CREATININE (test code = 2214) 0.70 MG/DL eGFR AMER. (test code 111 ML/MIN/1.73 = 61086) eGFR NON- AMER. (test 96 ML/MIN/1.73 code = 72783) CALC BUN/CREAT (test code = 26 RATIO [...] code = 2219) 31 U/L COMPREHENSIVE METABOLIC [id number] 00:00:00 Test Item Value Reference Range Interpretation Comments GLUCOSE (test code = 2217) 113 MG/DL BUN (test code = 2208) 18 MG/DL CREATININE (test code = 2214) 0.70 MG/DL eGFR AMER. (test code 111 ML/MIN/1.73 = 52952) eGFR NON- AMER. (test 96 ML/MIN/1.73 code = 03873) CALC BUN/CREAT (test code = 26 RATIO [...] ALT (test code = 2219) 31 U/L [id number] 00:00:00 Test Item Value Reference Range Interpretation Comments TSH, THIRD GENERATION (test code 2.520 UIU/ML = 2821) [id number] 00:00:00 Test Item Value Reference Range Interpretation Comments TSH, THIRD GENERATION (test code 2.520 UIU/ML = 2821) [id number] 00:00:00 Test Item Value Reference Range Interpretation Comments TSH, THIRD GENERATION (test code 2.520 UIU/ML = 2821) CBC W/AUTO [id number] 00:00:00 Test Item Value Reference Range Interpretation [...] code = 1015) 346 K/UL CBC W/AUTO [id number] 00:00:00 Test Item Value Reference Range Interpretation [...] (test code = 1015) 346 K/UL HEMOGLOBIN [id number] 00:00:00 Test Item Value Reference Range Interpretation Comments HEMOGLOBIN A1c (test code = 49793) 5.9 % HEMOGLOBIN [id number] 00:00:00 Test Item Value Reference Range Interpretation Comments HEMOGLOBIN A1c (test code = 45585) 5.9 % LIPID [id number] 00:00:00 Test Item Value Reference Range Interpretation Comments CHOLESTEROL (test code = 2210) 318 MG/DL TRIGLYCERIDES (test code = 2232) 263 MG/DL HDL CHOLESTEROL (test code = 2220) 51 MG/DL CALC LDL CHOL (test code = 2237) 214 MG/DL RISK RATIO LDL/HDL (test code = 4.20 RATIO 2238) COMPREHENSIVE METABOLIC [id number] 00:00:00 Test Item Value Reference Range Interpretation Comments GLUCOSE (test code = 2217) 113 MG/DL BUN (test code = 2208) 18 MG/DL CREATININE (test code = 2214) 0.70 MG/DL eGFR AMER. (test code 111 ML/MIN/1.73 = 87089) eGFR NON- AMER. (test 96 ML/MIN/1.73 code = 39018) CALC BUN/CREAT (test code = 26 RATIO [...] ALT (test code = 2219) 31 U/L [id number] 00:00:00 Test Item Value Reference Range Interpretation Comments TSH, THIRD GENERATION (test code 2.520 UIU/ML = 2821) [id number] 00:00:00 Test Item Value Reference Range Interpretation Comments TSH, THIRD GENERATION (test code 2.520 UIU/ML = 2821) CBC W/AUTO [id number] 00:00:00 Test Item Value Reference Range Interpretation [...] code = 1015) 346 K/UL CBC W/AUTO [id number] 00:00:00 Test Item Value Reference Range Interpretation [...] code = 1015) 346 K/UL CBC W/AUTO [id number] 00:00:00 Test Item Value Reference Range Interpretation [...] (test code = 1015) 346 K/UL HEMOGLOBIN [id number] 00:00:00 Test Item Value Reference Range Interpretation Comments HEMOGLOBIN A1c (test code = 96088) 5.9 % HEMOGLOBIN [id number] 00:00:00 Test Item Value Reference Range Interpretation Comments HEMOGLOBIN A1c (test code = 22501) 5.9 % HEMOGLOBIN [id number] 00:00:00 Test Item Value Reference Range Interpretation Comments HEMOGLOBIN A1c (test code = 98213) 5.9 % LIPID [id number] 00:00:00 Test Item Value Reference Range Interpretation Comments CHOLESTEROL (test code = 2210) 318 MG/DL TRIGLYCERIDES (test code = 2232) 263 MG/DL HDL CHOLESTEROL (test code = 2220) 51 MG/DL CALC LDL CHOL (test code = 2237) 214 MG/DL RISK RATIO LDL/HDL (test code = 4.20 RATIO 2238) LIPID [id number] 00:00:00 Test Item Value Reference Range Interpretation Comments CHOLESTEROL (test code = 2210) 318 MG/DL TRIGLYCERIDES (test code = 2232) 263 MG/DL HDL CHOLESTEROL (test code = 2220) 51 MG/DL CALC LDL CHOL (test code = 2237) 214 MG/DL RISK RATIO LDL/HDL (test code = 4.20 RATIO 2238) COMPREHENSIVE METABOLIC [id number] 00:00:00 Test Item Value Reference Range Interpretation Comments GLUCOSE (test code = 2217) 113 MG/DL BUN (test code = 2208) 18 MG/DL CREATININE (test code = 2214) 0.70 MG/DL eGFR AMER. (test code 111 ML/MIN/1.73 = 85100) eGFR NON- AMER. (test 96 ML/MIN/1.73 code = 09596) CALC BUN/CREAT (test code = 26 RATIO [...] code = 2219) 31 U/L COMPREHENSIVE METABOLIC [id number] 00:00:00 Test Item Value Reference Range Interpretation Comments GLUCOSE (test code = 2217) 113 MG/DL BUN (test code = 2208) 18 MG/DL CREATININE (test code = 2214) 0.70 MG/DL eGFR AMER. (test code 111 ML/MIN/1.73 = 81518) eGFR NON- AMER. (test 96 ML/MIN/1.73 code = 63189) CALC BUN/CREAT (test code = 26 RATIO [...] ALT (test code = 2219) 31 U/L [id number] 00:00:00 Test Item Value Reference Range Interpretation Comments TSH, THIRD GENERATION (test code 2.520 UIU/ML = 2821) [id number] 00:00:00 Test Item Value Reference Range Interpretation Comments TSH, THIRD GENERATION (test code 2.520 UIU/ML = 2821) [id number] 00:00:00 Test Item Value Reference Range Interpretation Comments TSH, THIRD GENERATION (test code 2.520 UIU/ML = 2821) CULTURE, [id number] 00:00:00 Test Item Value Reference Range Interpretation Comments CULTURE, URINE (test SPECIMEN NUMBER: code = 46470) [id number] CULTURE, [id number] 00:00:00 Test Item Value Reference Range Interpretation Comments CULTURE, URINE (test SPECIMEN NUMBER: code = 78586) [id number] CULTURE, [id number] 00:00:00 Test Item Value Reference Range Interpretation Comments CULTURE, URINE (test SPECIMEN NUMBER: code = 31256) [id number] CULTURE, [id number] 00:00:00 Test Item Value Reference Range Interpretation Comments CULTURE, URINE (test SPECIMEN NUMBER: code = 91004) [id number] CULTURE, [id number] 00:00:00 Test Item Value Reference Range Interpretation Comments CULTURE, URINE (test SPECIMEN NUMBER: code = 79860) [id number] CULTURE, [id number] 00:00:00 Test Item Value Reference Range Interpretation Comments CULTURE, URINE (test SPECIMEN NUMBER: code = 84897) [id number] CULTURE, [id number] 00:00:00 Test Item Value Reference Range Interpretation Comments CULTURE, URINE (test SPECIMEN NUMBER: code = 55931) [id number] CULTURE, [id number] 00:00:00 Test Item Value Reference Range Interpretation Comments CULTURE, URINE (test SPECIMEN NUMBER: code = 79957) [id number] CULTURE, [id number] 00:00:00 Test Item Value Reference Range Interpretation Comments CULTURE, URINE (test SPECIMEN NUMBER: code = 92391) [id number] CULTURE, [id number] 00:00:00 Test Item Value Reference Range Interpretation Comments CULTURE, URINE (test SPECIMEN NUMBER: code = 15353) [id number] CULTURE, [id number] 00:00:00 Test Item Value Reference Range Interpretation Comments CULTURE, URINE (test SPECIMEN NUMBER: code = 08044) [id number] CULTURE, [id number] 00:00:00 Test Item Value Reference Range Interpretation Comments CULTURE, URINE (test SPECIMEN NUMBER: code = 20377) [id number] CULTURE, [id number] 00:00:00 Test Item Value Reference Range Interpretation Comments CULTURE, URINE (test SPECIMEN NUMBER: code = 49430) [id number] CULTURE, [id number] 00:00:00 Test Item Value Reference Range Interpretation Comments CULTURE, URINE (test SPECIMEN NUMBER: code = 30239) [id number] BASIC METABOLIC [id number] 00:00:00 Test Item Value Reference Range Interpretation Comments GLUCOSE (test code = 2217) 135 MG/DL BUN (test code = 2208) 25 MG/DL CREATININE (test code = 2214) 0.76 MG/DL eGFR AMER. (test code 101 ML/MIN/1.73 = 04278) eGFR NON- AMER. (test 87 ML/MIN/1.73 code = 65506) SODIUM (test code = 2231) 139 MEQ/L POTASSIUM (test code = 2228) 4.7 MEQ/L CHLORIDE (test code = 2215) 99 MEQ/L CARBON DIOXIDE (test code = 26 MEQ/L 2206) CALCIUM (test code = 2209) 9.4 MG/DL BASIC METABOLIC [id number] 00:00:00 Test Item Value Reference Range Interpretation Comments GLUCOSE (test code = 2217) 135 MG/DL BUN (test code = 2208) 25 MG/DL CREATININE (test code = 2214) 0.76 MG/DL eGFR AMER. (test code 101 ML/MIN/1.73 = 76678) eGFR NON- AMER. (test 87 ML/MIN/1.73 code = 10047) SODIUM (test code = 2231) 139 MEQ/L POTASSIUM (test code = 2228) 4.7 MEQ/L CHLORIDE (test code = 2215) 99 MEQ/L CARBON DIOXIDE (test code = 26 MEQ/L 2206) CALCIUM (test code = 2209) 9.4 MG/DL LIPID [id number] 00:00:00 Test Item Value Reference Range Interpretation Comments CHOLESTEROL (test code = 2210) 262 MG/DL TRIGLYCERIDES (test code = 2232) 300 MG/DL HDL CHOLESTEROL (test code = 2220) 36 MG/DL CALC LDL CHOL (test code = 2237) 166 MG/DL RISK RATIO LDL/HDL (test code = 4.61 RATIO 2238) LIPID [id number] 00:00:00 Test Item Value Reference Range Interpretation Comments CHOLESTEROL (test code = 2210) 262 MG/DL TRIGLYCERIDES (test code = 2232) 300 MG/DL HDL CHOLESTEROL (test code = 2220) 36 MG/DL CALC LDL CHOL (test code = 2237) 166 MG/DL RISK RATIO LDL/HDL (test code = 4.61 RATIO 2238) HEMOGLOBIN [id number] 00:00:00 Test Item Value Reference Range Interpretation Comments HEMOGLOBIN A1c (test code = 82616) 6.2 % HEMOGLOBIN [id number] 00:00:00 Test Item Value Reference Range Interpretation Comments HEMOGLOBIN A1c (test code = 25622) 6.2 % HEMOGLOBIN [id number] 00:00:00 Test Item Value Reference Range Interpretation Comments HEMOGLOBIN A1c (test code = 16889) 6.2 % [id number] 00:00:00 Test Item Value Reference Range Interpretation Comments TSH, THIRD GENERATION (test code 0.988 UIU/ML = 2821) [id number] 00:00:00 Test Item Value Reference Range Interpretation Comments TSH, THIRD GENERATION (test code 0.988 UIU/ML = 2821) [id number] 00:00:00 Test Item Value Reference Range Interpretation Comments TSH, THIRD GENERATION (test code 0.988 UIU/ML = 2821) BASIC METABOLIC [id number] 00:00:00 Test Item Value Reference Range Interpretation Comments GLUCOSE (test code = 2217) 135 MG/DL BUN (test code = 2208) 25 MG/DL CREATININE (test code = 2214) 0.76 MG/DL eGFR AMER. (test code 101 ML/MIN/1.73 = 98156) eGFR NON- AMER. (test 87 ML/MIN/1.73 code = 40903) SODIUM (test code = 2231) 139 MEQ/L POTASSIUM (test code = 2228) 4.7 MEQ/L CHLORIDE (test code = 2215) 99 MEQ/L CARBON DIOXIDE (test code = 26 MEQ/L 2206) CALCIUM (test code = 2209) 9.4 MG/DL BASIC METABOLIC [id number] 00:00:00 Test Item Value Reference Range Interpretation Comments GLUCOSE (test code = 2217) 135 MG/DL BUN (test code = 2208) 25 MG/DL CREATININE (test code = 2214) 0.76 MG/DL eGFR AMER. (test code 101 ML/MIN/1.73 = 58693) eGFR NON- AMER. (test 87 ML/MIN/1.73 code = 53277) SODIUM (test code = 2231) 139 MEQ/L POTASSIUM (test code = 2228) 4.7 MEQ/L CHLORIDE (test code = 2215) 99 MEQ/L CARBON DIOXIDE (test code = 26 MEQ/L 2206) CALCIUM (test code = 2209) 9.4 MG/DL LIPID [id number] 00:00:00 Test Item Value Reference Range Interpretation Comments CHOLESTEROL (test code = 2210) 262 MG/DL TRIGLYCERIDES (test code = 2232) 300 MG/DL HDL CHOLESTEROL (test code = 2220) 36 MG/DL CALC LDL CHOL (test code = 2237) 166 MG/DL RISK RATIO LDL/HDL (test code = 4.61 RATIO 2238) LIPID [id number] 00:00:00 Test Item Value Reference Range Interpretation Comments CHOLESTEROL (test code = 2210) 262 MG/DL TRIGLYCERIDES (test code = 2232) 300 MG/DL HDL CHOLESTEROL (test code = 2220) 36 MG/DL CALC LDL CHOL (test code = 2237) 166 MG/DL RISK RATIO LDL/HDL (test code = 4.61 RATIO 2238) HEMOGLOBIN [id number] 00:00:00 Test Item Value Reference Range Interpretation Comments HEMOGLOBIN A1c (test code = 00685) 6.2 % HEMOGLOBIN [id number] 00:00:00 Test Item Value Reference Range Interpretation Comments HEMOGLOBIN A1c (test code = 00943) 6.2 % HEMOGLOBIN [id number] 00:00:00 Test Item Value Reference Range Interpretation Comments HEMOGLOBIN A1c (test code = 86920) 6.2 % [id number] 00:00:00 Test Item Value Reference Range Interpretation Comments TSH, THIRD GENERATION (test code 0.988 UIU/ML = 2821) [id number] 00:00:00 Test Item Value Reference Range Interpretation Comments TSH, THIRD GENERATION (test code 0.988 UIU/ML = 2821) [id number] 00:00:00 Test Item Value Reference Range Interpretation Comments TSH, THIRD GENERATION (test code 0.988 UIU/ML = 2821) BASIC METABOLIC [id number] 00:00:00 Test Item Value Reference Range Interpretation Comments GLUCOSE (test code = 2217) 135 MG/DL BUN (test code = 2208) 25 MG/DL CREATININE (test code = 2214) 0.76 MG/DL eGFR AMER. (test code 101 ML/MIN/1.73 = 87403) eGFR NON- AMER. (test 87 ML/MIN/1.73 code = 83600) SODIUM (test code = 2231) 139 MEQ/L POTASSIUM (test code = 2228) 4.7 MEQ/L CHLORIDE (test code = 2215) 99 MEQ/L CARBON DIOXIDE (test code = 26 MEQ/L 2206) CALCIUM (test code = 2209) 9.4 MG/DL LIPID [id number] 00:00:00 Test Item Value Reference Range Interpretation Comments CHOLESTEROL (test code = 2210) 262 MG/DL TRIGLYCERIDES (test code = 2232) 300 MG/DL HDL CHOLESTEROL (test code = 2220) 36 MG/DL CALC LDL CHOL (test code = 2237) 166 MG/DL RISK RATIO LDL/HDL (test code = 4.61 RATIO 2238) HEMOGLOBIN [id number] 00:00:00 Test Item Value Reference Range Interpretation Comments HEMOGLOBIN A1c (test code = 49494) 6.2 % HEMOGLOBIN [id number] 00:00:00 Test Item Value Reference Range Interpretation Comments HEMOGLOBIN A1c (test code = 40686) 6.2 % [id number] 00:00:00 Test Item Value Reference Range Interpretation Comments TSH, THIRD GENERATION (test code 0.988 UIU/ML = 2821) [id number] 00:00:00 Test Item Value Reference Range Interpretation Comments TSH, THIRD GENERATION (test code 0.988 UIU/ML = 2821) BASIC METABOLIC [id number] 00:00:00 Test Item Value Reference Range Interpretation Comments GLUCOSE (test code = 2217) 135 MG/DL BUN (test code = 2208) 25 MG/DL CREATININE (test code = 2214) 0.76 MG/DL eGFR AMER. (test code 101 ML/MIN/1.73 = 41851) eGFR NON- AMER. (test 87 ML/MIN/1.73 code = 89377) SODIUM (test code = 2231) 139 MEQ/L POTASSIUM (test code = 2228) 4.7 MEQ/L CHLORIDE (test code = 2215) 99 MEQ/L CARBON DIOXIDE (test code = 26 MEQ/L 2206) CALCIUM (test code = 2209) 9.4 MG/DL BASIC METABOLIC [id number] 00:00:00 Test Item Value Reference Range Interpretation Comments GLUCOSE (test code = 2217) 135 MG/DL BUN (test code = 2208) 25 MG/DL CREATININE (test code = 2214) 0.76 MG/DL eGFR AMER. (test code 101 ML/MIN/1.73 = 17962) eGFR NON- AMER. (test 87 ML/MIN/1.73 code = 45643) SODIUM (test code = 2231) 139 MEQ/L POTASSIUM (test code = 2228) 4.7 MEQ/L CHLORIDE (test code = 2215) 99 MEQ/L CARBON DIOXIDE (test code = 26 MEQ/L 2206) CALCIUM (test code = 2209) 9.4 MG/DL LIPID [id number] 00:00:00 Test Item Value Reference Range Interpretation Comments CHOLESTEROL (test code = 2210) 262 MG/DL TRIGLYCERIDES (test code = 2232) 300 MG/DL HDL CHOLESTEROL (test code = 2220) 36 MG/DL CALC LDL CHOL (test code = 2237) 166 MG/DL RISK RATIO LDL/HDL (test code = 4.61 RATIO 2238) LIPID [id number] 00:00:00 Test Item Value Reference Range Interpretation Comments CHOLESTEROL (test code = 2210) 262 MG/DL TRIGLYCERIDES (test code = 2232) 300 MG/DL HDL CHOLESTEROL (test code = 2220) 36 MG/DL CALC LDL CHOL (test code = 2237) 166 MG/DL RISK RATIO LDL/HDL (test code = 4.61 RATIO 2238) HEMOGLOBIN [id number] 00:00:00 Test Item Value Reference Range Interpretation Comments HEMOGLOBIN A1c (test code = 64319) 6.2 % HEMOGLOBIN [id number] 00:00:00 Test Item Value Reference Range Interpretation Comments HEMOGLOBIN A1c (test code = 55140) 6.2 % HEMOGLOBIN [id number] 00:00:00 Test Item Value Reference Range Interpretation Comments HEMOGLOBIN A1c (test code = 69641) 6.2 % [id number] 00:00:00 Test Item Value Reference Range Interpretation Comments TSH, THIRD GENERATION (test code 0.988 UIU/ML = 2821) [id number] 00:00:00 Test Item Value Reference Range Interpretation Comments TSH, THIRD GENERATION (test code 0.988 UIU/ML = 2821) [id number] 00:00:00 Test Item Value Reference Range Interpretation Comments TSH, THIRD GENERATION (test code 0.988 UIU/ML = 2821) COMPREHENSIVE METABOLIC [id number] 00:00:00 Test Item Value Reference Range Interpretation Comments GLUCOSE (test code = 2217) 109 MG/DL BUN (test code = 2208) 25 MG/DL CREATININE (test code = 2214) 0.78 MG/DL eGFR AMER. (test code 98 ML/MIN/1.73 = 33273) eGFR NON- AMER. (test 84 ML/MIN/1.73 code = 90492) CALC BUN/CREAT (test code = 32 RATIO [...] code = 2219) 25 U/L COMPREHENSIVE METABOLIC [id number] 00:00:00 Test Item Value Reference Range Interpretation Comments GLUCOSE (test code = 2217) 109 MG/DL BUN (test code = 2208) 25 MG/DL CREATININE (test code = 2214) 0.78 MG/DL eGFR AMER. (test code 98 ML/MIN/1.73 = 20940) eGFR NON- AMER. (test 84 ML/MIN/1.73 code = 25433) CALC BUN/CREAT (test code = 32 RATIO [...] (test code = 2219) 25 U/L LIPID [id number] 00:00:00 Test Item Value Reference Range Interpretation Comments CHOLESTEROL (test code = 2210) 295 MG/DL TRIGLYCERIDES (test code = 2232) 218 MG/DL HDL CHOLESTEROL (test code = 2220) 46 MG/DL CALC LDL CHOL (test code = 2237) 205 MG/DL RISK RATIO LDL/HDL (test code = 4.47 RATIO 2238) LIPID [id number] 00:00:00 Test Item Value Reference Range Interpretation Comments CHOLESTEROL (test code = 2210) 295 MG/DL TRIGLYCERIDES (test code = 2232) 218 MG/DL HDL CHOLESTEROL (test code = 2220) 46 MG/DL CALC LDL CHOL (test code = 2237) 205 MG/DL RISK RATIO LDL/HDL (test code = 4.47 RATIO 2238) HEMOGLOBIN [id number] 00:00:00 Test Item Value Reference Range Interpretation Comments HEMOGLOBIN A1c (test code = 17228) 7.0 % HEMOGLOBIN [id number] 00:00:00 Test Item Value Reference Range Interpretation Comments HEMOGLOBIN A1c (test code = 49852) 7.0 % HEMOGLOBIN [id number] 00:00:00 Test Item Value Reference Range Interpretation Comments HEMOGLOBIN A1c (test code = 87512) 7.0 % [id number] 00:00:00 Test Item Value Reference Range Interpretation Comments TSH, THIRD GENERATION (test code 0.565 UIU/ML = 2821) [id number] 00:00:00 Test Item Value Reference Range Interpretation Comments TSH, THIRD GENERATION (test code 0.565 UIU/ML = 2821) [id number] 00:00:00 Test Item Value Reference Range Interpretation Comments TSH, THIRD GENERATION (test code 0.565 UIU/ML = 2821) COMPREHENSIVE METABOLIC [id number] 00:00:00 Test Item Value Reference Range Interpretation Comments GLUCOSE (test code = 2217) 109 MG/DL BUN (test code = 2208) 25 MG/DL CREATININE (test code = 2214) 0.78 MG/DL eGFR AMER. (test code 98 ML/MIN/1.73 = 11680) eGFR NON- AMER. (test 84 ML/MIN/1.73 code = 25203) CALC BUN/CREAT (test code = 32 RATIO [...] code = 2219) 25 U/L COMPREHENSIVE METABOLIC [id number] 00:00:00 Test Item Value Reference Range Interpretation Comments GLUCOSE (test code = 2217) 109 MG/DL BUN (test code = 2208) 25 MG/DL CREATININE (test code = 2214) 0.78 MG/DL eGFR AMER. (test code 98 ML/MIN/1.73 = 28232) eGFR NON- AMER. (test 84 ML/MIN/1.73 code = 16571) CALC BUN/CREAT (test code = 32 RATIO [...] (test code = 2219) 25 U/L LIPID [id number] 00:00:00 Test Item Value Reference Range Interpretation Comments CHOLESTEROL (test code = 2210) 295 MG/DL TRIGLYCERIDES (test code = 2232) 218 MG/DL HDL CHOLESTEROL (test code = 2220) 46 MG/DL CALC LDL CHOL (test code = 2237) 205 MG/DL RISK RATIO LDL/HDL (test code = 4.47 RATIO 2238) LIPID [id number] 00:00:00 Test Item Value Reference Range Interpretation Comments CHOLESTEROL (test code = 2210) 295 MG/DL TRIGLYCERIDES (test code = 2232) 218 MG/DL HDL CHOLESTEROL (test code = 2220) 46 MG/DL CALC LDL CHOL (test code = 2237) 205 MG/DL RISK RATIO LDL/HDL (test code = 4.47 RATIO 2238) HEMOGLOBIN [id number] 00:00:00 Test Item Value Reference Range Interpretation Comments HEMOGLOBIN A1c (test code = 62532) 7.0 % HEMOGLOBIN [id number] 00:00:00 Test Item Value Reference Range Interpretation Comments HEMOGLOBIN A1c (test code = 71659) 7.0 % HEMOGLOBIN [id number] 00:00:00 Test Item Value Reference Range Interpretation Comments HEMOGLOBIN A1c (test code = 81615) 7.0 % [id number] 00:00:00 Test Item Value Reference Range Interpretation Comments TSH, THIRD GENERATION (test code 0.565 UIU/ML = 2821) [id number] 00:00:00 Test Item Value Reference Range Interpretation Comments TSH, THIRD GENERATION (test code 0.565 UIU/ML = 2821) [id number] 00:00:00 Test Item Value Reference Range Interpretation Comments TSH, THIRD GENERATION (test code 0.565 UIU/ML = 2821) COMPREHENSIVE METABOLIC [id number] 00:00:00 Test Item Value Reference Range Interpretation Comments GLUCOSE (test code = 2217) 109 MG/DL BUN (test code = 2208) 25 MG/DL CREATININE (test code = 2214) 0.78 MG/DL eGFR AMER. (test code 98 ML/MIN/1.73 = 30858) eGFR NON- AMER. (test 84 ML/MIN/1.73 code = 58956) CALC BUN/CREAT (test code = 32 RATIO [...] (test code = 2219) 25 U/L LIPID [id number] 00:00:00 Test Item Value Reference Range Interpretation Comments CHOLESTEROL (test code = 2210) 295 MG/DL TRIGLYCERIDES (test code = 2232) 218 MG/DL HDL CHOLESTEROL (test code = 2220) 46 MG/DL CALC LDL CHOL (test code = 2237) 205 MG/DL RISK RATIO LDL/HDL (test code = 4.47 RATIO 2238) HEMOGLOBIN [id number] 00:00:00 Test Item Value Reference Range Interpretation Comments HEMOGLOBIN A1c (test code = 79395) 7.0 % HEMOGLOBIN [id number] 00:00:00 Test Item Value Reference Range Interpretation Comments HEMOGLOBIN A1c (test code = 47825) 7.0 % [id number] 00:00:00 Test Item Value Reference Range Interpretation Comments TSH, THIRD GENERATION (test code 0.565 UIU/ML = 2821) [id number] 00:00:00 Test Item Value Reference Range Interpretation Comments TSH, THIRD GENERATION (test code 0.565 UIU/ML = 2821) COMPREHENSIVE METABOLIC [id number] 00:00:00 Test Item Value Reference Range Interpretation Comments GLUCOSE (test code = 2217) 109 MG/DL BUN (test code = 2208) 25 MG/DL CREATININE (test code = 2214) 0.78 MG/DL eGFR AMER. (test code 98 ML/MIN/1.73 = 43222) eGFR NON- AMER. (test 84 ML/MIN/1.73 code = 99203) CALC BUN/CREAT (test code = 32 RATIO [...] code = 2219) 25 U/L COMPREHENSIVE METABOLIC [id number] 00:00:00 Test Item Value Reference Range Interpretation Comments GLUCOSE (test code = 2217) 109 MG/DL BUN (test code = 2208) 25 MG/DL CREATININE (test code = 2214) 0.78 MG/DL eGFR AMER. (test code 98 ML/MIN/1.73 = 47804) eGFR NON- AMER. (test 84 ML/MIN/1.73 code = 89024) CALC BUN/CREAT (test code = 32 RATIO [...] (test code = 2219) 25 U/L LIPID [id number] 00:00:00 Test Item Value Reference Range Interpretation Comments CHOLESTEROL (test code = 2210) 295 MG/DL TRIGLYCERIDES (test code = 2232) 218 MG/DL HDL CHOLESTEROL (test code = 2220) 46 MG/DL CALC LDL CHOL (test code = 2237) 205 MG/DL RISK RATIO LDL/HDL (test code = 4.47 RATIO 2238) LIPID [id number] 00:00:00 Test Item Value Reference Range Interpretation Comments CHOLESTEROL (test code = 2210) 295 MG/DL TRIGLYCERIDES (test code = 2232) 218 MG/DL HDL CHOLESTEROL (test code = 2220) 46 MG/DL CALC LDL CHOL (test code = 2237) 205 MG/DL RISK RATIO LDL/HDL (test code = 4.47 RATIO 2238) HEMOGLOBIN [id number] 00:00:00 Test Item Value Reference Range Interpretation Comments HEMOGLOBIN A1c (test code = 01527) 7.0 % HEMOGLOBIN [id number] 00:00:00 Test Item Value Reference Range Interpretation Comments HEMOGLOBIN A1c (test code = 66251) 7.0 % HEMOGLOBIN [id number] 00:00:00 Test Item Value Reference Range Interpretation Comments HEMOGLOBIN A1c (test code = 74392) 7.0 % [id number] 00:00:00 Test Item Value Reference Range Interpretation Comments TSH, THIRD GENERATION (test code 0.565 UIU/ML = 2821) [id number] 00:00:00 Test Item Value Reference Range Interpretation Comments TSH, THIRD GENERATION (test code 0.565 UIU/ML = 2821) [id number] 00:00:00 Test Item Value Reference Range Interpretation Comments TSH, THIRD GENERATION (test code 0.565 UIU/ML = 2821) [id number] 00:00:00 Test Item Value Reference Range Interpretation Comments TSH, THIRD GENERATION (test code 0.379 UIU/ML = 2821) [id number] 00:00:00 Test Item Value Reference Range Interpretation Comments TSH, THIRD GENERATION (test code 0.379 UIU/ML = 2821) [id number] 00:00:00 Test Item Value Reference Range Interpretation Comments TSH, THIRD GENERATION (test code 0.379 UIU/ML = 2821) [id number] 00:00:00 Test Item Value Reference Range Interpretation Comments TSH, THIRD GENERATION (test code 0.379 UIU/ML = 2821) [id number] 00:00:00 Test Item Value Reference Range Interpretation Comments TSH, THIRD GENERATION (test code 0.379 UIU/ML = 2821) [id number] 00:00:00 Test Item Value Reference Range Interpretation Comments TSH, THIRD GENERATION (test code 0.379 UIU/ML = 2821) [id number] 00:00:00 Test Item Value Reference Range Interpretation Comments TSH, THIRD GENERATION (test code 0.379 UIU/ML = 2821) [id number] 00:00:00 Test Item Value Reference Range Interpretation Comments TSH, THIRD GENERATION (test code 0.379 UIU/ML = 2821) [id number] 00:00:00 Test Item Value Reference Range Interpretation Comments TSH, THIRD GENERATION (test code 0.379 UIU/ML = 2821) [id number] 00:00:00 Test Item Value Reference Range Interpretation Comments TSH, THIRD GENERATION (test code 0.379 UIU/ML = 2821) [id number] 00:00:00 Test Item Value Reference Range Interpretation Comments TSH, THIRD GENERATION (test code 0.379 UIU/ML = 2821) CULTURE, [id number] 00:00:00 Test Item Value Reference Range Interpretation Comments CULTURE, URINE (test SPECIMEN NUMBER: code = 31164) [id number] CULTURE, [id number] 00:00:00 Test Item Value Reference Range Interpretation Comments CULTURE, URINE (test SPECIMEN NUMBER: code = 49952) [id number] CULTURE, [id number] 00:00:00 Test Item Value Reference Range Interpretation Comments CULTURE, URINE (test SPECIMEN NUMBER: code = 93146) [id number] CULTURE, [id number] 00:00:00 Test Item Value Reference Range Interpretation Comments CULTURE, URINE (test SPECIMEN NUMBER: code = 49581) [id number] CULTURE, [id number] 00:00:00 Test Item Value Reference Range Interpretation Comments CULTURE, URINE (test SPECIMEN NUMBER: code = 42928) [id number] CULTURE, [id number] 00:00:00 Test Item Value Reference Range Interpretation Comments CULTURE, URINE (test SPECIMEN NUMBER: code = 39122) [id number] CULTURE, [id number] 00:00:00 Test Item Value Reference Range Interpretation Comments CULTURE, URINE (test SPECIMEN NUMBER: code = 50771) [id number] COMPREHENSIVE METABOLIC [id number] 00:00:00 Test Item Value Reference Range Interpretation Comments GLUCOSE (test code = 2217) 128 MG/DL BUN (test code = 2208) 26 MG/DL CREATININE (test code = 2214) 0.92 MG/DL eGFR AMER. (test code 81 ML/MIN/1.73 = 68305) eGFR NON- AMER. (test 70 ML/MIN/1.73 code = 44040) CALC BUN/CREAT (test code = 28 RATIO [...] code = 2219) 29 U/L COMPREHENSIVE METABOLIC [id number] 00:00:00 Test Item Value Reference Range Interpretation Comments GLUCOSE (test code = 2217) 128 MG/DL BUN (test code = 2208) 26 MG/DL CREATININE (test code = 2214) 0.92 MG/DL eGFR AMER. (test code 81 ML/MIN/1.73 = 95530) eGFR NON- AMER. (test 70 ML/MIN/1.73 code = 23666) CALC BUN/CREAT (test code = 28 RATIO [...] code = 2219) 29 U/L ACUTE HEPATITIS [id number] 00:00:00 Test Item Value Reference Range Interpretation Comments HEPATITIS A IgM (test code = NON-REACTIVE 76492) HEPATITIS B CORE IgM (test code NON-REACTIVE = 4644) HEPATITIS B SURF AG (test code = NON-REACTIVE 2739) HEPATITIS C ANTIBODY (test code NON-REACTIVE = 4675) INTERPRETATION HEPATITIS A: (NOTE) (test code = 2552) INTERPRETATION HEPATITIS B: (NOTE) (test code = 09964) INTERPRETATION HEPATITIS C: (NOTE) (test code = 01479) ACUTE HEPATITIS [id number] 00:00:00 Test Item Value Reference Range Interpretation Comments HEPATITIS A IgM (test code = NON-REACTIVE 15172) HEPATITIS B CORE IgM (test code NON-REACTIVE = 4644) HEPATITIS B SURF AG (test code = NON-REACTIVE 2739) HEPATITIS C ANTIBODY (test code NON-REACTIVE = 4675) INTERPRETATION HEPATITIS A: (NOTE) (test code = 2552) INTERPRETATION HEPATITIS B: (NOTE) (test code = 22498) INTERPRETATION HEPATITIS C: (NOTE) (test code = 75420) [id number] 00:00:00 Test Item Value Reference Range Interpretation Comments AMYLASE (test code = 2205) 32 U/L [id number] 00:00:00 Test Item Value Reference Range Interpretation Comments AMYLASE (test code = 2205) 32 U/L [id number] 00:00:00 Test Item Value Reference Range Interpretation Comments LIPASE (test code = 2058) 22 U/L [id number] 00:00:00 Test Item Value Reference Range Interpretation Comments LIPASE (test code = 2058) 22 U/L [id number] 00:00:00 Test Item Value Reference Range Interpretation Comments LIPASE (test code = 205) 22 U/L COMPREHENSIVE METABOLIC [id number] 00:00:00 Test Item Value Reference Range Interpretation Comments GLUCOSE (test code = 2217) 128 MG/DL BUN (test code = 2208) 26 MG/DL CREATININE (test code = 2214) 0.92 MG/DL eGFR AMER. (test code 81 ML/MIN/1.73 = 34221) eGFR NON- AMER. (test 70 ML/MIN/1.73 code = 36900) CALC BUN/CREAT (test code = 28 RATIO [...] code = 2219) 29 U/L COMPREHENSIVE METABOLIC [id number] 00:00:00 Test Item Value Reference Range Interpretation Comments GLUCOSE (test code = 2217) 128 MG/DL BUN (test code = 2208) 26 MG/DL CREATININE (test code = 2214) 0.92 MG/DL eGFR AMER. (test code 81 ML/MIN/1.73 = 18524) eGFR NON- AMER. (test 70 ML/MIN/1.73 code = 51174) CALC BUN/CREAT (test code = 28 RATIO [...] code = 2219) 29 U/L ACUTE HEPATITIS [id number] 00:00:00 Test Item Value Reference Range Interpretation Comments HEPATITIS A IgM (test code = NON-REACTIVE 03102) HEPATITIS B CORE IgM (test code NON-REACTIVE = 4644) HEPATITIS B SURF AG (test code = NON-REACTIVE 2739) HEPATITIS C ANTIBODY (test code NON-REACTIVE = 4675) INTERPRETATION HEPATITIS A: (NOTE) (test code = 2552) INTERPRETATION HEPATITIS B: (NOTE) (test code = 58677) INTERPRETATION HEPATITIS C: (NOTE) (test code = 41384) ACUTE HEPATITIS [id number] 00:00:00 Test Item Value Reference Range Interpretation Comments HEPATITIS A IgM (test code = NON-REACTIVE 29460) HEPATITIS B CORE IgM (test code NON-REACTIVE = 4644) HEPATITIS B SURF AG (test code = NON-REACTIVE 2739) HEPATITIS C ANTIBODY (test code NON-REACTIVE = 4675) INTERPRETATION HEPATITIS A: (NOTE) (test code = 2552) INTERPRETATION HEPATITIS B: (NOTE) (test code = 79023) INTERPRETATION HEPATITIS C: (NOTE) (test code = 08833) [id number] 00:00:00 Test Item Value Reference Range Interpretation Comments AMYLASE (test code = 2205) 32 U/L [id number] 00:00:00 Test Item Value Reference Range Interpretation Comments AMYLASE (test code = 2205) 32 U/L [id number] 00:00:00 Test Item Value Reference Range Interpretation Comments LIPASE (test code = 2058) 22 U/L [id number] 00:00:00 Test Item Value Reference Range Interpretation Comments LIPASE (test code = 2058) 22 U/L [id number] 00:00:00 Test Item Value Reference Range Interpretation Comments LIPASE (test code = 2058) 22 U/L COMPREHENSIVE METABOLIC [id number] 00:00:00 Test Item Value Reference Range Interpretation Comments GLUCOSE (test code = 2217) 128 MG/DL BUN (test code = 2208) 26 MG/DL CREATININE (test code = 2214) 0.92 MG/DL eGFR AMER. (test code 81 ML/MIN/1.73 = 08532) eGFR NON- AMER. (test 70 ML/MIN/1.73 code = 63394) CALC BUN/CREAT (test code = 28 RATIO [...] code = 2219) 29 U/L ACUTE HEPATITIS [id number] 00:00:00 Test Item Value Reference Range Interpretation Comments HEPATITIS A IgM (test code = NON-REACTIVE 58400) HEPATITIS B CORE IgM (test code NON-REACTIVE = 2944) HEPATITIS B SURF AG (test code = NON-REACTIVE 5285) HEPATITIS C ANTIBODY (test code NON-REACTIVE = 8559) INTERPRETATION HEPATITIS A: (NOTE) (test code = 2552) INTERPRETATION HEPATITIS B: (NOTE) (test code = 45213) INTERPRETATION HEPATITIS C: (NOTE) (test code = 34655) [id number] 00:00:00 Test Item Value Reference Range Interpretation Comments AMYLASE (test code = 2205) 32 U/L [id number] 00:00:00 Test Item Value Reference Range Interpretation Comments LIPASE (test code = 2057) 22 U/L [id number] 00:00:00 Test Item Value Reference Range Interpretation Comments LIPASE (test code = 2057) 22 U/L COMPREHENSIVE METABOLIC [id number] 00:00:00 Test Item Value Reference Range Interpretation Comments GLUCOSE (test code = 2217) 128 MG/DL BUN (test code = 2208) 26 MG/DL CREATININE (test code = 2214) 0.92 MG/DL eGFR AMER. (test code 81 ML/MIN/1.73 = 56641) eGFR NON- AMER. (test 70 ML/MIN/1.73 code = 88163) CALC BUN/CREAT (test code = 28 RATIO [...] code = 2219) 29 U/L COMPREHENSIVE METABOLIC [id number] 00:00:00 Test Item Value Reference Range Interpretation Comments GLUCOSE (test code = 2217) 128 MG/DL BUN (test code = 2208) 26 MG/DL CREATININE (test code = 2214) 0.92 MG/DL eGFR AMER. (test code 81 ML/MIN/1.73 = 98568) eGFR NON- AMER. (test 70 ML/MIN/1.73 code = 42021) CALC BUN/CREAT (test code = 28 RATIO [...] code = 2219) 29 U/L ACUTE HEPATITIS [id number] 00:00:00 Test Item Value Reference Range Interpretation Comments HEPATITIS A IgM (test code = NON-REACTIVE 52115) HEPATITIS B CORE IgM (test code NON-REACTIVE = 4644) HEPATITIS B SURF AG (test code = NON-REACTIVE 2739) HEPATITIS C ANTIBODY (test code NON-REACTIVE = 4675) INTERPRETATION HEPATITIS A: (NOTE) (test code = 2552) INTERPRETATION HEPATITIS B: (NOTE) (test code = 53999) INTERPRETATION HEPATITIS C: (NOTE) (test code = 29995) ACUTE HEPATITIS [id number] 00:00:00 Test Item Value Reference Range Interpretation Comments HEPATITIS A IgM (test code = NON-REACTIVE 38402) HEPATITIS B CORE IgM (test code NON-REACTIVE = 4644) HEPATITIS B SURF AG (test code = NON-REACTIVE 2739) HEPATITIS C ANTIBODY (test code NON-REACTIVE = 4675) INTERPRETATION HEPATITIS A: (NOTE) (test code = 2552) INTERPRETATION HEPATITIS B: (NOTE) (test code = 23765) INTERPRETATION HEPATITIS C: (NOTE) (test code = 33232) [id number] 00:00:00 Test Item Value Reference Range Interpretation Comments AMYLASE (test code = 2205) 32 U/L [id number] 00:00:00 Test Item Value Reference Range Interpretation Comments AMYLASE (test code = 2205) 32 U/L [id number] 00:00:00 Test Item Value Reference Range Interpretation Comments LIPASE (test code = 2058) 22 U/L [id number] 00:00:00 Test Item Value Reference Range Interpretation Comments LIPASE (test code = 2058) 22 U/L [id number] 00:00:00 Test Item Value Reference Range Interpretation Comments LIPASE (test code = 2058) 22 U/L [id number] 00:00:00 Test Item Value Reference Range Interpretation Comments TSH, THIRD GENERATION (test code 4.890 UIU/ML = 2821) [id number] 00:00:00 Test Item Value Reference Range Interpretation Comments TSH, THIRD GENERATION (test code 4.890 UIU/ML = 2821) [id number] 00:00:00 Test Item Value Reference Range Interpretation Comments TSH, THIRD GENERATION (test code 4.890 UIU/ML = 2821) COMPREHENSIVE METABOLIC [id number] 00:00:00 Test Item Value Reference Range Interpretation Comments GLUCOSE (test code = 2217) 121 MG/DL BUN (test code = 2208) 40 MG/DL CREATININE (test code = 2214) 1.48 MG/DL eGFR AMER. (test code 45 ML/MIN/1.73 = 49804) eGFR NON- AMER. (test 39 ML/MIN/1.73 code = 31811) CALC BUN/CREAT (test code = 27 RATIO [...] code = 2219) 20 U/L COMPREHENSIVE METABOLIC [id number] 00:00:00 Test Item Value Reference Range Interpretation Comments GLUCOSE (test code = 2217) 121 MG/DL BUN (test code = 2208) 40 MG/DL CREATININE (test code = 2214) 1.48 MG/DL eGFR AMER. (test code 45 ML/MIN/1.73 = 26583) eGFR NON- AMER. (test 39 ML/MIN/1.73 code = 76510) CALC BUN/CREAT (test code = 27 RATIO [...] ALT (test code = 2219) 20 U/L [id number] 00:00:00 Test Item Value Reference Range Interpretation Comments TSH, THIRD GENERATION (test code 4.890 UIU/ML = 2821) [id number] 00:00:00 Test Item Value Reference Range Interpretation Comments TSH, THIRD GENERATION (test code 4.890 UIU/ML = 2821) [id number] 00:00:00 Test Item Value Reference Range Interpretation Comments TSH, THIRD GENERATION (test code 4.890 UIU/ML = 2821) COMPREHENSIVE METABOLIC [id number] 00:00:00 Test Item Value Reference Range Interpretation Comments GLUCOSE (test code = 2217) 121 MG/DL BUN (test code = 2208) 40 MG/DL CREATININE (test code = 2214) 1.48 MG/DL eGFR AMER. (test code 45 ML/MIN/1.73 = 18539) eGFR NON- AMER. (test 39 ML/MIN/1.73 code = 69114) CALC BUN/CREAT (test code = 27 RATIO 223) SODIUM (test code = 2231) 143 MEQ/L [...] code = 2219) 20 U/L COMPREHENSIVE METABOLIC [id number] 00:00:00 Test Item Value Reference Range Interpretation Comments GLUCOSE (test code = 2217) 121 MG/DL BUN (test code = 2208) 40 MG/DL CREATININE (test code = 2214) 1.48 MG/DL eGFR AMER. (test code 45 ML/MIN/1.73 = 12729) eGFR NON- AMER. (test 39 ML/MIN/1.73 code = 68712) CALC BUN/CREAT (test code = 27 RATIO [...] ALT (test code = 2219) 20 U/L [id number] 00:00:00 Test Item Value Reference Range Interpretation Comments TSH, THIRD GENERATION (test code 4.890 UIU/ML = 2821) [id number] 00:00:00 Test Item Value Reference Range Interpretation Comments TSH, THIRD GENERATION (test code 4.890 UIU/ML = 2821) COMPREHENSIVE METABOLIC [id number] 00:00:00 Test Item Value Reference Range Interpretation Comments GLUCOSE (test code = 2217) 121 MG/DL BUN (test code = 2208) 40 MG/DL CREATININE (test code = 2214) 1.48 MG/DL eGFR AMER. (test code 45 ML/MIN/1.73 = 73360) eGFR NON- AMER. (test 39 ML/MIN/1.73 code = 50166) CALC BUN/CREAT (test code = 27 RATIO [...] ALT (test code = 2219) 20 U/L [id number] 00:00:00 Test Item Value Reference Range Interpretation Comments TSH, THIRD GENERATION (test code 4.890 UIU/ML = 2821) [id number] 00:00:00 Test Item Value Reference Range Interpretation Comments TSH, THIRD GENERATION (test code 4.890 UIU/ML = 2821) [id number] 00:00:00 Test Item Value Reference Range Interpretation Comments TSH, THIRD GENERATION (test code 4.890 UIU/ML = 2821) COMPREHENSIVE METABOLIC [id number] 00:00:00 Test Item Value Reference Range Interpretation Comments GLUCOSE (test code = 2217) 121 MG/DL BUN (test code = 2208) 40 MG/DL CREATININE (test code = 2214) 1.48 MG/DL eGFR AMER. (test code 45 ML/MIN/1.73 = 70713) eGFR NON- AMER. (test 39 ML/MIN/1.73 code = 92901) CALC BUN/CREAT (test code = 27 RATIO [...] code = 2219) 20 U/L COMPREHENSIVE METABOLIC [id number] 00:00:00 Test Item Value Reference Range Interpretation Comments GLUCOSE (test code = 2217) 121 MG/DL BUN (test code = 2208) 40 MG/DL CREATININE (test code = 2214) 1.48 MG/DL eGFR AMER. (test code 45 ML/MIN/1.73 = 82733) eGFR NON- AMER. (test 39 ML/MIN/1.73 code = 60495) CALC BUN/CREAT (test code = 27 RATIO [...] (test code = 2219) 20 U/L LIPID [id number] 00:00:00 Test Item Value Reference Range Interpretation Comments CHOLESTEROL (test code = 2210) 261 MG/DL TRIGLYCERIDES (test code = 2232) 165 MG/DL HDL CHOLESTEROL (test code = 2220) 58 MG/DL CALC LDL CHOL (test code = 2237) 170 MG/DL RISK RATIO LDL/HDL (test code = 2.93 RATIO 2238) LIPID [id number] 00:00:00 Test Item Value Reference Range Interpretation Comments CHOLESTEROL (test code = 2210) 261 MG/DL TRIGLYCERIDES (test code = 2232) 165 MG/DL HDL CHOLESTEROL (test code = 2220) 58 MG/DL CALC LDL CHOL (test code = 2237) 170 MG/DL RISK RATIO LDL/HDL (test code = 2.93 RATIO 2238) CBC W/AUTO [id number] 00:00:00 Test Item Value Reference Range Interpretation [...] code = 1015) 378 K/UL CBC W/AUTO [id number] 00:00:00 Test Item Value Reference Range Interpretation [...] code = 1015) 378 K/UL CBC W/AUTO [id number] 00:00:00 Test Item Value Reference Range Interpretation [...] (test code = 1015) 378 K/UL HEMOGLOBIN [id number] 00:00:00 Test Item Value Reference Range Interpretation Comments HEMOGLOBIN A1c (test code = 35676) 6.4 % HEMOGLOBIN [id number] 00:00:00 Test Item Value Reference Range Interpretation Comments HEMOGLOBIN A1c (test code = 06659) 6.4 % HEMOGLOBIN [id number] 00:00:00 Test Item Value Reference Range Interpretation Comments HEMOGLOBIN A1c (test code = 47148) 6.4 % [id number] 00:00:00 Test Item Value Reference Range Interpretation Comments TSH (test code = 2821) 5.290 UIU/ML [id number] 00:00:00 Test Item Value Reference Range Interpretation Comments TSH (test code = 2821) 5.290 UIU/ML [id number] 00:00:00 Test Item Value Reference Range Interpretation Comments TSH (test code = 2821) 5.290 UIU/ML LIPID [id number] 00:00:00 Test Item Value Reference Range Interpretation Comments CHOLESTEROL (test code = 2210) 261 MG/DL TRIGLYCERIDES (test code = 2232) 165 MG/DL HDL CHOLESTEROL (test code = 2220) 58 MG/DL CALC LDL CHOL (test code = 2237) 170 MG/DL RISK RATIO LDL/HDL (test code = 2.93 RATIO 2238) LIPID [id number] 00:00:00 Test Item Value Reference Range Interpretation Comments CHOLESTEROL (test code = 2210) 261 MG/DL TRIGLYCERIDES (test code = 2232) 165 MG/DL HDL CHOLESTEROL (test code = 2220) 58 MG/DL CALC LDL CHOL (test code = 2237) 170 MG/DL RISK RATIO LDL/HDL (test code = 2.93 RATIO 2238) CBC W/AUTO [id number] 00:00:00 Test Item Value Reference Range Interpretation [...] code = 1015) 378 K/UL CBC W/AUTO [id number] 00:00:00 Test Item Value Reference Range Interpretation [...] code = 1015) 378 K/UL CBC W/AUTO [id number] 00:00:00 Test Item Value Reference Range Interpretation [...] (test code = 1015) 378 K/UL HEMOGLOBIN [id number] 00:00:00 Test Item Value Reference Range Interpretation Comments HEMOGLOBIN A1c (test code = 94723) 6.4 % HEMOGLOBIN [id number] 00:00:00 Test Item Value Reference Range Interpretation Comments HEMOGLOBIN A1c (test code = 40036) 6.4 % HEMOGLOBIN [id number] 00:00:00 Test Item Value Reference Range Interpretation Comments HEMOGLOBIN A1c (test code = 05739) 6.4 % [id number] 00:00:00 Test Item Value Reference Range Interpretation Comments TSH (test code = 2821) 5.290 UIU/ML [id number] 00:00:00 Test Item Value Reference Range Interpretation Comments TSH (test code = 2821) 5.290 UIU/ML [id number] 00:00:00 Test Item Value Reference Range Interpretation Comments TSH (test code = 2821) 5.290 UIU/ML LIPID [id number] 00:00:00 Test Item Value Reference Range Interpretation Comments CHOLESTEROL (test code = 2210) 261 MG/DL TRIGLYCERIDES (test code = 2232) 165 MG/DL HDL CHOLESTEROL (test code = 2220) 58 MG/DL CALC LDL CHOL (test code = 2237) 170 MG/DL RISK RATIO LDL/HDL (test code = 2.93 RATIO 2238) CBC W/AUTO [id number] 00:00:00 Test Item Value Reference Range Interpretation [...] code = 1015) 378 K/UL CBC W/AUTO [id number] 00:00:00 Test Item Value Reference Range Interpretation [...] (test code = 1015) 378 K/UL HEMOGLOBIN [id number] 00:00:00 Test Item Value Reference Range Interpretation Comments HEMOGLOBIN A1c (test code = 29358) 6.4 % HEMOGLOBIN [id number] 00:00:00 Test Item Value Reference Range Interpretation Comments HEMOGLOBIN A1c (test code = 74620) 6.4 % [id number] 00:00:00 Test Item Value Reference Range Interpretation Comments TSH (test code = 2821) 5.290 UIU/ML [id number] 00:00:00 Test Item Value Reference Range Interpretation Comments TSH (test code = 2821) 5.290 UIU/ML LIPID [id number] 00:00:00 Test Item Value Reference Range Interpretation Comments CHOLESTEROL (test code = 2210) 261 MG/DL TRIGLYCERIDES (test code = 2232) 165 MG/DL HDL CHOLESTEROL (test code = 2220) 58 MG/DL CALC LDL CHOL (test code = 2237) 170 MG/DL RISK RATIO LDL/HDL (test code = 2.93 RATIO 2238) LIPID [id number] 00:00:00 Test Item Value Reference Range Interpretation Comments CHOLESTEROL (test code = 2210) 261 MG/DL TRIGLYCERIDES (test code = 2232) 165 MG/DL HDL CHOLESTEROL (test code = 2220) 58 MG/DL CALC LDL CHOL (test code = 2237) 170 MG/DL RISK RATIO LDL/HDL (test code = 2.93 RATIO 2238) CBC W/AUTO [id number] 00:00:00 Test Item Value Reference Range Interpretation [...] code = 1015) 378 K/UL CBC W/AUTO [id number] 00:00:00 Test Item Value Reference Range Interpretation [...] code = 1015) 378 K/UL CBC W/AUTO [id number] 00:00:00 Test Item Value Reference Range Interpretation [...] (test code = 1015) 378 K/UL HEMOGLOBIN [id number] 00:00:00 Test Item Value Reference Range Interpretation Comments HEMOGLOBIN A1c (test code = 46615) 6.4 % HEMOGLOBIN [id number] 00:00:00 Test Item Value Reference Range Interpretation Comments HEMOGLOBIN A1c (test code = 16741) 6.4 % HEMOGLOBIN [id number] 00:00:00 Test Item Value Reference Range Interpretation Comments HEMOGLOBIN A1c (test code = 80574) 6.4 % [id number] 00:00:00 Test Item Value Reference Range Interpretation Comments TSH (test code = 2821) 5.290 UIU/ML [id number] 00:00:00 Test Item Value Reference Range Interpretation Comments TSH (test code = 2821) 5.290 UIU/ML [id number] 00:00:00 Test Item Value Reference Range Interpretation [...] code = 2821) 1.030 UIU/ML COMPREHENSIVE METABOLIC [id number] 00:00:00 Test Item Value Reference Range Interpretation Comments GLUCOSE (test code = 2217) 106 MG/DL BUN (test code = 2208) 23 MG/DL CREATININE (test code = 2214) 0.66 MG/DL eGFR AMER. (test code 114 ML/MIN/1.73 = 02317) eGFR NON- AMER. (test 99 ML/MIN/1.73 code = 94345) CALC BUN/CREAT (test code = 35 RATIO [...] code = 2219) 31 U/L COMPREHENSIVE METABOLIC [id number] 00:00:00 Test Item Value Reference Range Interpretation Comments GLUCOSE (test code = 2217) 106 MG/DL BUN (test code = 2208) 23 MG/DL CREATININE (test code = 2214) 0.66 MG/DL eGFR AMER. (test code 114 ML/MIN/1.73 = 85564) eGFR NON- AMER. (test 99 ML/MIN/1.73 code = 58318) CALC BUN/CREAT (test code = 35 RATIO [...] code = 2821) 0.335 UIU/ML COMPREHENSIVE METABOLIC [id number] 00:00:00 Test Item Value Reference Range Interpretation Comments GLUCOSE (test code = 2217) 106 MG/DL BUN (test code = 2208) 23 MG/DL CREATININE (test code = 2214) 0.66 MG/DL eGFR AMER. (test code 114 ML/MIN/1.73 = 57466) eGFR NON- AMER. (test 99 ML/MIN/1.73 code = 00034) CALC BUN/CREAT (test code = 35 RATIO [...] code = 2219) 31 U/L COMPREHENSIVE METABOLIC [id number] 00:00:00 Test Item Value Reference Range Interpretation Comments GLUCOSE (test code = 2217) 106 MG/DL BUN (test code = 2208) 23 MG/DL CREATININE (test code = 2214) 0.66 MG/DL eGFR AMER. (test code 114 ML/MIN/1.73 = 75090) eGFR NON- AMER. (test 99 ML/MIN/1.73 code = 40135) CALC BUN/CREAT (test code = 35 RATIO [...] code = 2821) 0.335 UIU/ML COMPREHENSIVE METABOLIC [id number] 00:00:00 Test Item Value Reference Range Interpretation Comments GLUCOSE (test code = 2217) 106 MG/DL BUN (test code = 2208) 23 MG/DL CREATININE (test code = 2214) 0.66 MG/DL eGFR AMER. (test code 114 ML/MIN/1.73 = 57733) eGFR NON- AMER. (test 99 ML/MIN/1.73 code = 05961) CALC BUN/CREAT (test code = 35 RATIO [...] code = 2821) 0.335 UIU/ML COMPREHENSIVE METABOLIC [id number] 00:00:00 Test Item Value Reference Range Interpretation Comments GLUCOSE (test code = 2217) 106 MG/DL BUN (test code = 2208) 23 MG/DL CREATININE (test code = 2214) 0.66 MG/DL eGFR AMER. (test code 114 ML/MIN/1.73 = 02032) eGFR NON- AMER. (test 99 ML/MIN/1.73 code = 89989) CALC BUN/CREAT (test code = 35 RATIO [...] code = 2219) 31 U/L COMPREHENSIVE METABOLIC [id number] 00:00:00 Test Item Value Reference Range Interpretation Comments GLUCOSE (test code = 2217) 106 MG/DL BUN (test code = 2208) 23 MG/DL CREATININE (test code = 2214) 0.66 MG/DL eGFR AMER. (test code 114 ML/MIN/1.73 = 65405) eGFR NON- AMER. (test 99 ML/MIN/1.73 code = 33788) CALC BUN/CREAT (test code = 35 RATIO [...] code = 2821) 0.335 UIU/ML COMPREHENSIVE METABOLIC [id number] 00:00:00 Test Item Value Reference Range Interpretation Comments GLUCOSE (test code = 2217) 103 MG/DL BUN (test code = 2208) 15 MG/DL CREATININE (test code = 2214) 0.77 MG/DL eGFR AMER. (test code 101 ML/MIN/1.73 = 33520) eGFR NON- AMER. (test 87 ML/MIN/1.73 code = 55351) CALC BUN/CREAT (test code = 19 RATIO [...] code = 2219) 24 U/L COMPREHENSIVE METABOLIC [id number] 00:00:00 Test Item Value Reference Range Interpretation Comments GLUCOSE (test code = 2217) 103 MG/DL BUN (test code = 2208) 15 MG/DL CREATININE (test code = 2214) 0.77 MG/DL eGFR AMER. (test code 101 ML/MIN/1.73 = 82733) eGFR NON- AMER. (test 87 ML/MIN/1.73 code = 01696) CALC BUN/CREAT (test code = 19 RATIO [...] code = 2821) 0.424 UIU/ML COMPREHENSIVE METABOLIC [id number] 00:00:00 Test Item Value Reference Range Interpretation Comments GLUCOSE (test code = 2217) 103 MG/DL BUN (test code = 2208) 15 MG/DL CREATININE (test code = 2214) 0.77 MG/DL eGFR AMER. (test code 101 ML/MIN/1.73 = 14450) eGFR NON- AMER. (test 87 ML/MIN/1.73 code = 81298) CALC BUN/CREAT (test code = 19 RATIO [...] code = 2219) 24 U/L COMPREHENSIVE METABOLIC [id number] 00:00:00 Test Item Value Reference Range Interpretation Comments GLUCOSE (test code = 2217) 103 MG/DL BUN (test code = 2208) 15 MG/DL CREATININE (test code = 2214) 0.77 MG/DL eGFR AMER. (test code 101 ML/MIN/1.73 = 03181) eGFR NON- AMER. (test 87 ML/MIN/1.73 code = 45824) CALC BUN/CREAT (test code = 19 RATIO [...] code = 2821) 0.424 UIU/ML COMPREHENSIVE METABOLIC [id number] 00:00:00 Test Item Value Reference Range Interpretation Comments GLUCOSE (test code = 2217) 103 MG/DL BUN (test code = 2208) 15 MG/DL CREATININE (test code = 2214) 0.77 MG/DL eGFR AMER. (test code 101 ML/MIN/1.73 = 47294) eGFR NON- AMER. (test 87 ML/MIN/1.73 code = 39894) CALC BUN/CREAT (test code = 19 RATIO [...] = 1.37 2820) TSH (test code = 282) 0.424 UIU/ML COMPREHENSIVE METABOLIC [id number] 00:00:00 Test Item Value Reference Range Interpretation Comments GLUCOSE (test code = 2217) 103 MG/DL BUN (test code = 2208) 15 MG/DL CREATININE (test code = 2214) 0.77 MG/DL eGFR AMER. (test code 101 ML/MIN/1.73 = 03958) eGFR NON- AMER. (test 87 ML/MIN/1.73 code = 79505) CALC BUN/CREAT (test code = 19 RATIO [...] code = 2219) 24 U/L COMPREHENSIVE METABOLIC [id number] 00:00:00 Test Item Value Reference Range Interpretation Comments GLUCOSE (test code = 2217) 103 MG/DL BUN (test code = 2208) 15 MG/DL CREATININE (test code = 2214) 0.77 MG/DL eGFR AMER. (test code 101 ML/MIN/1.73 = 98387) eGFR NON- AMER. (test 87 ML/MIN/1.73 code = 28286) CALC BUN/CREAT (test code = 19 RATIO [...] CALC GLOBULIN (test code = 2.1 G/DL 224) CALC A/G RATIO (test code [...] (test code = 2821) 0.424 UIU/ML CULTURE, [id number] 00:00:00 Test Item Value Reference Range Interpretation Comments CULTURE, URINE (test SPECIMEN NUMBER: code = 80148) [id number] CULTURE, [id number] 00:00:00 Test Item Value Reference Range Interpretation Comments CULTURE, URINE (test SPECIMEN NUMBER: code = 05161) [id number] CULTURE, [id number] 00:00:00 Test Item Value Reference Range Interpretation Comments CULTURE, URINE (test SPECIMEN NUMBER: code = 81433) [id number] CULTURE, [id number] 00:00:00 Test Item Value Reference Range Interpretation Comments CULTURE, URINE (test SPECIMEN NUMBER: code = 33808) [id number] CULTURE, [id number] 00:00:00 Test Item Value Reference Range Interpretation Comments CULTURE, URINE (test SPECIMEN NUMBER: code = 42257) [id number] CULTURE, [id number] 00:00:00 Test Item Value Reference Range Interpretation Comments CULTURE, URINE (test SPECIMEN NUMBER: code = 48544) [id number] CULTURE, [id number] 00:00:00 Test Item Value Reference Range Interpretation Comments CULTURE, URINE (test SPECIMEN NUMBER: code = 59458) [id number] CULTURE, [id number] 00:00:00 Test Item Value Reference Range Interpretation Comments CULTURE, URINE (test SPECIMEN NUMBER: code = 17662) [id number] CULTURE, [id number] 00:00:00 Test Item Value Reference Range Interpretation Comments CULTURE, URINE (test SPECIMEN NUMBER: code = 49142) [id number] CULTURE, [id number] 00:00:00 Test Item Value Reference Range Interpretation Comments CULTURE, URINE (test SPECIMEN NUMBER: code = 43766) [id number] CULTURE, [id number] 00:00:00 Test Item Value Reference Range Interpretation Comments CULTURE, URINE (test SPECIMEN NUMBER: code = 65742) [id number] CULTURE, [id number] 00:00:00 Test Item Value Reference Range Interpretation Comments CULTURE, URINE (test SPECIMEN NUMBER: code = 13155) [id number] CULTURE, [id number] 00:00:00 Test Item Value Reference Range Interpretation Comments CULTURE, URINE (test SPECIMEN NUMBER: code = 90093) [id number] CULTURE, [id number] 00:00:00 Test Item Value Reference Range Interpretation Comments CULTURE, URINE (test SPECIMEN NUMBER: code = 31681) [id number]
[2022-07-02] MEDS ORDERED: NA CHLORIDE 0.9% 1,000 ML ONE (01:31)
[2022-07-02 01:40] LABS: Magnesium 1.5 mg/dL (1.6-2.4); Troponin High Sensitivity 5.7 pg/mL (<58.9)
[2022-07-02] MEDS ORDERED: ONDANSETRON 4 MG/2 ML VIAL ONE (01:42)
[2022-07-02 01:44] LABS: Absolute Lymphocytes (CBC) 1.4 K/uL (0.7-4.9); Hematocrit 35.8 % (36.0-45.0); Lymphocytes % 12.2 % (15.3-44.8); MCV 90.5 fL (80-100); MPV 6.4 fL (7.6-11.3); RBC Red Blood Cell Count 3.96 M/uL (3.86-4.86)
[2022-07-02 01:50] LABS: Albumin 3.7 g/dL (3.4-5.0); Bilirubin Total 0.4 mg/dL (0.2-1.0); Potassium 3.3 mEq/L (3.5-5.1); Protein, Total 7.3 g/dL (6.4-8.2)
[2022-07-02 02:23] LABS: Barbiturates NEGATIVE (NEGATIVE); Benzodiazepines NEGATIVE (NEGATIVE); Cocaine NEGATIVE (NEGATIVE); METHAMPHETAM NEGATIVE (NEGATIVE); Methadone NEGATIVE (NEGATIVE); Opiates NEGATIVE (NEGATIVE); Phencyclidine NEGATIVE (NEGATIVE); Specific Gravity 1.021 (1.005-1.030); THC Cannibis NEGATIVE (NEGATIVE); Urine Bacteria <20 /HPF (<20); Urine Bilirubin NEGATIVE (Negative); Urine Blood Negative (Negative); Urine Clarity Clear (Clear); Urine Color Light-Yellow (Yellow); Urine Glucose NEGATIVE (Negative); Urine Mucus Slight /HPF (None Seen); Urine Protein TRACE (Negative); Urine RBC <5 /HPF (None Seen); Urine Urobilinogen Normal (Normal); Urine pH 6.5 (5.0-7.0)
[2022-07-02] MEDS ORDERED: MAGNESIUM SULFATE 1 gm IVPB 2 GM/200 ML BAG IV ONE (02:45)
[2022-07-02] MEDS ORDERED: LORazepam 2 MG/ML VIAL ONE (02:45)
[2022-07-02] MEDS ORDERED: KCL 20 MEQ/100 mL IVPB 100 ML IV ONE (02:45)
--- NOTE | 2022-07-02 02:53 | EDPHYS ---
Physician Documentation [facility] Name: Jaimie Amanda Age: 61 yrs Sex: Female : 1960 Arrival Date: 07/02/2022 Time: 00:30 Bed 19 Private MD: ED Physician Tera Raymond HPI: 07/02 00:45 This 61 yrs old Female presents to ER via EMS with complaints of Altered Mental Status. cp 00:45 The patient presents with confusion. cp 00:45 Onset: The symptoms/episode began/occurred yesterday, and became worse today. Possible cp causes: low sodium level. Associated signs and symptoms: Pertinent positives: nausea, vomiting, weakness, Pertinent negatives: abdominal pain, chest pain, diarrhea. Current symptoms: In the emergency department the patient's symptoms are unchanged from the initial presentation, despite EMS interventions. Patient's baseline: Neuro: alert and fully oriented, Motor: no deficits, Ambulation: walks without assistance, Speech: slow. The patient has experienced similar episodes in the past, multiple times. The patient has been recently seen at the [facility] Emergency Department, yesterday, for similar complaints labs were performed, CT scan was performed, admitted for low serum sodium but left AMA. Historical: - Allergies: 03:56 No Known Allergies; jj7 - Home Meds: 00:35 Clonidine Oral [Active]; kd3 - PMHx: 00:35 Anxiety; Chronic Abdominal Pain; Hypothyroidism; Hypertensive disorder; low NA; NIDDM; kd3 - PSHx: 00:35 Thyroidectomy; kd3 - Immunization history:: Adult Immunizations unknown. - Social history:: Smoking status: Patient reports the use of cigarette tobacco products, smokes one pack cigarettes per day. ROS: 00:50 Constitutional: Negative for fever. cp 00:50 Eyes: Negative for injury, pain, redness, and discharge. cp 00:50 Cardiovascular: Negative for chest pain. 00:50 Respiratory: Negative for shortness of breath, wheezing. 00:50 Abdomen/GI: Positive for nausea, vomiting, Negative for diarrhea, constipation. 00:50 Neuro: Positive for altered mental status, weakness. 00:50 Unable to obtain ROS due to altered mental status. Exam: 01:28 ECG was reviewed by the Attending Physician. cp Vital Signs: 00:34 Weight 68.04 kg; Height 5 ft. 4 in. ; kd3 01:01 BP 189 / 94; Pulse 83; Resp 20; Pulse Ox 96% ; jj7 02:30 BP 113 / 102; Pulse 84; Resp 18; Pulse Ox 100% ; jj7 03:18 BP 186 / 85; Pulse 89; Resp 19; Pulse Ox 98% ; jj7 04:39 BP 152 / 63; Pulse 72; Resp 16; Pulse Ox 98% ; jj7 00:34 Body Mass Index 25.75 (68.04 kg, 162.56 cm) kd3 MDM: 00:40 Patient medically screened. cp 02:30 Data reviewed: vital signs, nurses notes, lab test result(s), EKG, radiologic studies, cp CT scan. 02:30 Consideration of Admission/Observation Patient was admitted/placed on observation. I cp considered the following discharge prescriptions or medication management in the emergency department Medications were administered in the Emergency Department. See MAR. Care significantly affected by the following chronic conditions: Diabetes, Hypertension. 07/02 00:39 Order name: CBC with Diff; Complete Time: 02:08 07/02 02:08 Interpretation: Normal except: WBC 11.70; HCT 35.8; MPV 6.4; GWEN% 82.5; LYM% 12.2; NEUT cp A 9.7. 07/02 00:39 Order name: CMP; Complete Time: 02:08 07/02 02:09 Interpretation: Normal except: NA 122; K 3.3; CL 92; GLUC 175; CRE 0.52; CA 8.4; GLOB cp 3.6; A/G 1.0. 07/02 00:41 Order name: Osmolality, Serum; Complete Time: 02:08 07/02 00:41 Order name: Urine Creatinine; Complete Time: 02:07/02 00:41 Order name: Urine Osmolality; Complete Time: 02:50 07/02 00:41 Order name: Urine Sodium Random; Complete Time: 02:07/02 00:41 Order name: Urine Potassium Random; Complete Time: 02:07/02 02:27 Interpretation: Abnormal. cp 07/02 00:45 Order name: Magnesium; Complete Time: 01:44 cp 07/02 01:44 Interpretation: Abnormal: MG 1.5. cp 07/02 00:45 Order name: Troponin HS; Complete Time: 01:44 07/02 00:51 Order name: ETOH Level; Complete Time: 02:08 [facility] 07/02 00:51 Order name: UDS; Complete Time: 02:26 [facility] 07/02 00:58 Order name: Urinalysis W/Microscopic; Complete Time: 02:26 07/02 02:27 Interpretation: Reviewed. 07/02 00:58 Order name: CT Head Brain wo Cont 07/02 00:40 Order name: EKG; Complete Time: 00:41 07/02 00:39 Order name: IV Saline Lock; Complete Time: : [facility] 07/02 00:39 Order name: Labs collected and sent; Complete Time: : [facility] 07/02 00:40 Order name: EKG - Nurse/Tech; Complete Time: 01: 07/02 02:53 Order name: Vital Signs cp EC: Rate is 86 beats/min. Rhythm is regular. MN interval is prolonged at 210 msec. QRS cp interval is prolonged at 102 msec. QT interval is normal. Interpreted by me. Reviewed by me. Administered Medications: : Drug: NS 0.9% IV 1000 ml Route: IV; Rate: 100 ml/hr; Site: left wrist; j7 04:38 Follow up: IV Status: Infusion continued upon admission j7 01:45 Drug: Ondansetron IVP 4 mg Route: IVP; Site: left wrist; jj7 03:55 Follow up: Response: Nausea is decreased jj7 02:52 Drug: Ativan IVP 1 mg Route: IVP; Site: left wrist; jj7 03:54 Follow up: Response: No adverse reaction jj7 03:15 Drug: Magnesium Sulfate IVPB 2 grams Route: IVPB; Infused Over: 2 hrs; Site: left wrist;jj7 03:42 Drug: Acetaminophen PO 650 mg Route: PO; jj7 04:17 Follow up: Response: No adverse reaction j7 03:55 Drug: hydrALAZINE IVP 10 mg Route: IVP; Site: left wrist; jj7 04:17 Follow up: Response: Blood pressure is lowered jj7 04:38 Not Given (ONLY HAD 1 ACCESS AND OTHER FLUIDS AND MEDS INFUSING. SENT WITH PT TO jj7 UNITt): Potassium Chloride IV 20 mEq IV at calculated rate once; administer over 1-2 hours Disposition: 05:16 Co-signature as Attending Physician, Tera Raymond MD I agree with the assessment and kdr plan of care. Disposition Summary: 07/02/22 02:52 Hospitalization Ordered Hospitalization Status: Inpatient Admission cp Provider: Ez Byrd cp Condition: Serious cp Problem: an ongoing problem cp Symptoms: are unchanged cp Bed/Room Type: Standard cp Location: Telemetry/MedSurg (Inpatient)(07/02/22 03:34) la1 Room Assignment: 210(07/02/22 03:34) eb1 Diagnosis - Altered mental status, unspecified cp - Hypo-osmolality and hyponatremia cp - Hypomagnesemia cp - Hypertensive heart disease without heart failure cp - Hypokalemia cp Forms: - Medication Reconciliation Form cp - SBAR form cp Signatures: Dispatcher [employer] EDMS Tera Raymond MD MD kdr Hu Gardner, CVOR NURSE-C CVOR NURSE-Cla1 Diego Ang PA PA cp Shantel Valles, RN RN eb1 Lidia Guan RN RN kd3 Aleyda Virk RN RN jj7 Corrections: (The following items were deleted from the chart) 03:34 02:52 Intensive Care Unit cp la1 03:34 02:52 cp la1 03:34 03:34 la1 eb1
--- NOTE | 2022-07-02 02:53 | ER ---
Nurse's Notes [facility] Name: Jaimie Amanda Age: 61 yrs Sex: Female : 1960 Arrival Date: 07/02/2022 Time: 00:30 Bed 19 Private MD: Diagnosis: Altered mental status, unspecified;Hypo-osmolality and hyponatremia;Hypomagnesemia;Hypertensive heart disease without heart failure;Hypokalemia Presentation: 07/02 00:34 Chief complaint: EMS states: Patient was her this morning with the same symptoms and kd3 left AMA. Family reports that she had come in for slurred speech and altered mental status that's started yesterday. Pt reportedly has low sodium. Coronavirus screen: Vaccine status: unknown. Ebola Screen: No symptoms or risks identified at this time. Initial Sepsis Screen: Does the patient meet any 2 criteria? No. Patient's initial sepsis screen is negative. Does the patient have a suspected source of infection? No. Patient's initial sepsis screen is negative. Risk Assessment: Do you want to hurt yourself or someone else? Patient reports no desire to harm self or others. Onset of symptoms was July 02, 2022. 00:34 Method Of Arrival: EMS: [facility] kd3 00:34 Acuity: ZHEN 2 kd3 Triage Assessment: 00:35 General: Appears unkempt, Behavior is uncooperative. Pain: Denies pain. Neuro: Level of kd3 Consciousness is awake, alert, obeys commands, Oriented to person, place, time, situation. Cardiovascular: Patient's skin is warm and dry. Respiratory: Airway is patent Trachea midline Respiratory effort is even, unlabored, Respiratory pattern is regular, symmetrical. Historical: - Allergies: 03:56 No Known Allergies; jj7 - Home Meds: 00:35 Clonidine Oral [Active]; kd3 - PMHx: 00:35 Anxiety; Chronic Abdominal Pain; Hypothyroidism; Hypertensive disorder; low NA; NIDDM; kd3 - PSHx: 00:35 Thyroidectomy; kd3 - Immunization history:: Adult Immunizations unknown. - Social history:: Smoking status: Patient reports the use of cigarette tobacco products, smokes one pack cigarettes per day. Screenin:01 Abuse screen: Denies threats or abuse. Nutritional screening: No deficits noted. jj7 Tuberculosis screening: No symptoms or risk factors identified. Assessment: 01:01 General: Appears distressed, uncomfortable, unkempt, Behavior is calm, cooperative, jj7 appropriate for age. Neuro: Level of Consciousness is awake, alert, obeys commands, Oriented to person, place, time, Assistant Family Teacher are equal bilaterally Moves all extremities. Speech is slurred, SPEECH UNCLEAR. Reports SHE JUST FEELS SICK. 03:50 Reassessment: PT'S BP ELEVATED. SHOE PARTS MOLDER AZIZA INFORMED. MEDS ORDERED FOR HTN. jj7 Vital Signs: 00:34 Weight 68.04 kg; Height 5 ft. 4 in. ; kd3 01:01 BP 189 / 94; Pulse 83; Resp 20; Pulse Ox 96% ; jj7 02:30 BP 113 / 102; Pulse 84; Resp 18; Pulse Ox 100% ; jj7 03:18 BP 186 / 85; Pulse 89; Resp 19; Pulse Ox 98% ; jj7 04:39 BP 152 / 63; Pulse 72; Resp 16; Pulse Ox 98% ; jj7 00:34 Body Mass Index 25.75 (68.04 kg, 162.56 cm) kd3 ED Course: 00:33 Patient arrived in ED. kd3 00:35 Triage completed. kd3 00:35 Arm band placed on right wrist. kd3 00:39 Diego Ang PA is PHCP. cp 00:39 Tera Raymond MD is Attending Physician. cp 01:01 Patient has correct armband on for positive identification. Bed in low position. Call jj7 light in reach. Side rails up X2. 01:01 Inserted saline lock: 22 gauge in left wrist, using aseptic technique. Blood collected. jj7 01:10 Aleyda Virk, RN is Primary Nurse. jj7 01:19 CBC with Diff Sent. jj7 01:19 CMP Sent. jj7 01:19 ETOH Level Sent. jj7 01:20 UDS Sent. jj7 01:20 Troponin HS Sent. jj7 01:20 Magnesium Sent. jj7 01:20 Osmolality, Serum Sent. jj7 01:53 CT Head Brain wo Cont In Process Unspecified. EDMS 02:51 Ez Byrd MD is Hospitalizing Provider. cp 03:56 No provider procedures requiring assistance completed. jj7 04:34 Patient admitted, IV remains in place. jj7 Administered Medications: 01:27 Drug: NS 0.9% IV 1000 ml Route: IV; Rate: 100 ml/hr; Site: left wrist; jj7 04:38 Follow up: IV Status: Infusion continued upon admission jj7 01:45 Drug: Ondansetron IVP 4 mg Route: IVP; Site: left wrist; jj7 03:55 Follow up: Response: Nausea is decreased jj7 02:52 Drug: Ativan IVP 1 mg Route: IVP; Site: left wrist; jj7 03:54 Follow up: Response: No adverse reaction jj7 03:15 Drug: Magnesium Sulfate IVPB 2 grams Route: IVPB; Infused Over: 2 hrs; Site: left wrist;jj7 03:42 Drug: Acetaminophen PO 650 mg Route: PO; jj7 04:17 Follow up: Response: No adverse reaction jj7 03:55 Drug: hydrALAZINE IVP 10 mg Route: IVP; Site: left wrist; jj7 04:17 Follow up: Response: Blood pressure is lowered jj7 04:38 Not Given (ONLY HAD 1 ACCESS AND OTHER FLUIDS AND MEDS INFUSING. SENT WITH PT TO josejKatelin UNITt): Potassium Chloride IV 20 mEq IV at calculated rate once; administer over 1-2 hours Medication: 01:01 VIS not applicable for this client. jj7 Outcome: 02:52 Decision to Hospitalize by Provider. cp 04:34 Admitted to Med/surg accompanied by tech, via stretcher, room 210, Report called to savage GILLILAND RN 04:34 Condition: improved 04:38 Patient left the ED. jj7 Signatures: Dispatcher [employer] EDMS Diego Ang PA PA cp Doucette, Kyli, RN RN kd3 Aleyda Virk RN RN jj7
[2022-07-02] MEDS ORDERED: ACETAMINOPHEN 325 MG TABLET ONE (03:46)
[2022-07-02] MEDS ORDERED: HYDRALAZINE HCL 20 MG/ML VIAL IV PRN (03:47)
--- NOTE | 2022-07-02 03:49 | P.HP ---
Certification for Inpatient Patient admitted to: Inpatient With expected LOS: >2 Midnights Patient will require the following post-hospital care: None Practitioner: I am a practitioner with admitting privileges, knowledge of patient current condition, hospital course, and medical plan of care. Services: Services provided to patient in accordance with Admission requirements found in Title 42 Section 412.3 of the Code of Federal Regulations <Hu Gardner - Last Filed: 07/02/22 03:38> Patient History Date of Service: 07/02/22 Reason for admission: Hyponatremia History of Present Illness: 61-year-old female with history of chronic hyponatremia, cly-oflqlcj-obsnyazov diabetes, hypothyroidism, chronic pain, anxiety, hypertension presents to the emergency department for altered mental status, slurred speech. She was seen here the and admitted for similar complaint, left AMA the morning of the , came back to the emergency department again later in the day on the and again left AGAINST MEDICAL ADVICE from the emergency department. She returns again shortly after midnight today sent in by EMS for altered mental status. She was again evaluated in the emergency department labs were significant for sodium 122 potassium 3.3 chloride 92, signs of urine tract infection UDS and EtOH negative CT head repeated again today, negative for acute findings. Patient confused, speech is slurred currently oriented x2 continuously asking for pain medicine for generalized pain. Will need to admit for further evaluation and management of acute metabolic encephalopathy secondary to hyponatremia. She was recently seen by nephrology during her brief stay in the hospital due to that her hyponatremia secondary to high ADH state complicated by diminished solute intake, decreased appetite, chronic pain and nausea. Patient denies taking HCTZ at this time but given her mental status this cannot be confirmed. Will be admitted for further evaluation/management - Past Medical/Surgical History Diabetic: No -: Hepatitis -: Anxiety -: HTN -: Hypothyroidism -: Alcoholic induced seizures -: NIDDM -: Thyroidectomy -: Plastic surgery breast -: hernia repair Psychosocial/ Personal History: Patient lives at home with her mother - Family History Mother -: Hypertension, Diabetes, Cancer Notes: Thyroid, Knee replacement Father -: Heart disease, Hypertension, Diabetes - Social History Alcohol use: Yes CD- Drugs: No Caffeine use: Yes Place of Residence: Home <Hu Gardner - Last Filed: 07/02/22 03:38> Date of Service: 07/02/22 <Ez Byrd - Last Filed: 07/02/22 17:29> Allergies hydrochlorothiazide Allergy (Verified 07/01/22 00:10) Unknown Home Medications: Levothyroxine Sodium [Synthroid] 137 mcg PO [id number] 03/10/21 Losartan/Hydrochlorothiazide [Losartan-Hctz 100-25 mg Tab] 1 tab PO DAILY 03/10/21 Risperidone [Risperdal] 2 mg PO BID 03/10/21 cloNIDine HCL [Catapres*] 0.3 mg PO Q8H 03/10/21 clonazePAM [Klonopin*] 1 mg PO TIDP PRN 03/10/21 ondansetron HCL [Zofran] 4 mg PO Q8HP PRN 03/10/21 Venlafaxine HCl [Effexor] 100 mg PO TIDWM 12/27/21 Metformin ER [Glucophage ER] 500 mg PO BID 12/29/21 OXcarbazepine [Trileptal] 600 mg PO SEECOM 12/29/21 Carvedilol [Coreg] 1 tab PO DAILY 06/30/22 Dicyclomine HCl 20 mg PO QID 06/30/22 Fenofibrate 1 tab PO DAILY 06/30/22 Loratadine 1 tab PO DAILY 06/30/22 Sertraline HCl 1 tab PO BEDTIME 06/30/22 Trazodone HCl 0.5 - 1 tab PO BEDTIME 06/30/22 Review of Systems 10-point ROS is otherwise unremarkable Neurological: Change in Speech (Slurred speech), Other (Altered mental status) <Hu Gardner - Last Filed: 07/02/22 03:38> Physical Examination - Physical Exam General: Alert, In no apparent distress, Oriented x2 HEENT: Atraumatic, PERRLA, Mucous membr. moist/pink, EOMI, Sclerae nonicteric Neck: Supple, 2+ carotid pulse no bruit, No LAD, Without JVD or thyroid abnormality Respiratory: Clear to auscultation bilaterally, Normal air movement Cardiovascular: Regular rate/rhythm, Normal S1 S2 Capillary refill: <2 Seconds Gastrointestinal: Normal bowel sounds, No tenderness Musculoskeletal: No tenderness Integumentary: No rashes Neurological: Normal speech, Normal strength at 5/5 x4 extr, Normal tone, Normal affect - Studies Laboratory Data (last 24 hrs) 07/02/22 01:35: WBC 11.70 H, Hgb 12.3, Hct 35.8 L, Plt Count 362 07/02/22 01:07: Magnesium 1.5 L 07/02/22 01:07: Sodium 122 L, Potassium 3.3 L, BUN 14, Creatinine 0.52 L, Glucose 175 H, Total Bilirubin 0.4, AST 29, ALT 31, Alkaline Phosphatase 92 <Hu Gardner - Last Filed: 07/02/22 03:38> - Studies Laboratory Data (last 24 hrs) 07/02/22 01:35: WBC 11.70 H, Hgb 12.3, Hct 35.8 L, Plt Count 362 07/02/22 01:07: Magnesium 1.5 L 07/02/22 01:07: Sodium 122 L, Potassium 3.3 L, BUN 14, Creatinine 0.52 L, Glucose 175 H, Total Bilirubin 0.4, AST 29, ALT 31, Alkaline Phosphatase 92 <Ez Byrd - Last Filed: 07/02/22 17:29> Assessment and Plan - Plan Assessment: Acute on chronic hyponatremia Acute metabolic encephalopathy secondary to hyponatremia diabetes mellitus type [id number] Hypertension hypothyroidism Anxiety/chronic pain Plan: Acute on chronic hyponatremia Nephrology recently deemed this secondary to high ADH state, poor solute intake. Continue IV fluids, fluid restriction, BMP every 4 hours. Patient denies taking hydrochlorothiazide recently but this cannot be confirmed given her current mental status, will need to in house counsel patient further when she is more oriented/alert. Acute metabolic encephalopathy secondary to hyponatremia CT head negative, patient refused MRI during recent admission. We will treat hyponatremia, reevaluate mental status. diabetes mellitus type [id number] Every 6 hours Accu-Chek, sliding scale insulin. Hypertension Pain and continue home medications, hold HCTZ/diuretics if patient is taking. hypothyroidism We will check thyroid panel, continue home medications. Anxiety/chronic pain Review and continue meds as appropriate. DVT PPX: Lovenox Code status: Full Discharge Plan: Home Plan to discharge in: 72 Hours - Advance Directives Does patient have a Living Will: No Does patient have a Durable POA for Healthcare: No - Code Status/Comfort Care Code Status Assessed: Yes (Full code) Critical Care: No Time Spent Managing Pts Care (In Minutes): 70 <Hu Gardner - Last Filed: 07/02/22 03:38> - Plan Patient seen and examined on rounds this morning. States she is having pain for forehead from her fall, think she has a concussion She also reports a lot of anxiety lately Reviewed results, restart home Tylenol 3 and Klonopin Confirm other home medications and restart as appropriate Nephrology consult as noted above <Ez Byrd - Last Filed: 07/02/22 17:29>
[2022-07-02] MEDS ORDERED: NA CHLORIDE 0.9% 1,000 ML IV SCH (04:00)
[2022-07-02 05:26] VITALS: BMI 25.7
[2022-07-02] MEDS: carvediloL 12.5 MG TAB PO SCH ×2 (06:00→17:42)
[2022-07-02 07:34] LABS: Potassium 3.4 mEq/L (3.5-5.1)
[2022-07-02] MEDS: ENOXAPARIN 40 MG/0.4 ML SQ SCH (07:53)
[2022-07-02] MEDS: ONDANSETRON 4 MG/2 ML VIAL IV PRN ×2 (07:53→21:19)
[2022-07-02] MEDS: CODEINE 30MG/APAP 300MG TAB PO PRN (09:01)
[2022-07-02] MEDS ORDERED: Magnesium Sulfate 2gm IVPB 2 G/50 ML BAG IV ONE (09:44)
[2022-07-02] MEDS: NS KCL 20MEQ 1,000 ML IV SCH (11:28)
[2022-07-02 11:41] LABS: Potassium 3.1 mEq/L (3.5-5.1)
--- NOTE | 2022-07-02 12:25 | CON ---
Date of Consultation: 07/02/2022 Reason For Consultation: Hyponatremia, electrolyte imbalance. History Of Present Illness: This is a 61-year-old female, well known to me from previous admission. The patient had recurrent admission with hyponatremia. The patient usually signed against medical a dvice before she finished her treatment. The patient has history of chronic hyponatremia, diabetes c omplicated with neuropathy, no retinopathy, hypothyroidism, anxiety, bipolar, hypertension, the patie nt came to the hospital because of fall. The patient recently admitted to the hospital and signed ag ainst medical advice over the weekend. The patient had altered mental status and fall, brought to [facility], found to have hyponatremia. Sodium was down 122. The patient upon discharge, she was 12 3. The patient also has hypokalemia and hypomagnesemia. The patient currently full awake. The deni ent admits that she back taking her hydrochlorothiazide at home with losartan. I had long discussion with the patient and presence of the mother need to stay in the hospital and adjust medication and h ave better follow up. The patient verbalized understanding. Allergies: UNKNOWN. Home Medications: Include losartan, hydrochlorothiazide, levothyroxine, risperidone, clonidine, venl afaxine, metformin, , carvedilol, fenofibrate, loratadine, Zoloft, trazodone. Past Medical History: Includes; 1.Diabetes complicated with neuropathy, no retinopathy. 2.Anxiety. 3.Hepatitis. 4.Hypertension. 5.Hypothyroidism. 6.Hyponatremia. 7.Seizure. Past Surgical History: Includes thyroidectomy, breast plastic surgery, hernia repair. Family History: Positive for diabetes and hypertension and cancer. Social History: Active alcohol, active smoker. Denied drugs abuse. Review of Systems: Head and Neck: No red eye. No ear pain. GI: No nausea. No vomiting. : No polyuria. No dysuria. No hematuria. Service Trainer: No vaginal discharge. Respiratory: No shortness of breath. Cardiovascular: No orthopnea. No chest pain. Endocrine: No polydipsia. Skin: No rash. Neuro: Has fall. Musculoskeletal: No joint pain. Physical Examination: Vital Signs: When I saw the patient; blood pressure 137/89, pulse of 86, afebrile. Chest: Clear to auscultation. Heart: S1, S2. Regular. Abdomen: Soft, nontender. Extremity: No edema. Neurologic: Alert. No focality. No tremor. Laboratory Data: Sodium 122, potassium 3.4, bicarb 25, BUN 10, creatinine 0.4, calcium 8.4, magnesiu m 1.5. WBC 11.7, H and H 12.3/35.8, platelets of 362. Urinalysis; specific gravity of 1.018, urine sodium 128, urine potassium 57. Urine osmolality 628. Assessment And Plan: 1.Hyponatremia secondary to nonsteroidal use/SSRA superimposed with hydrochlorothiazide with fall. I am going to go ahead and start the patient on IV fluid and we will continue to monitor the patient. Agree with holding losartan, holding hydrochlorothiazide and we will consider holding SSRA. We benito l follow up the patient closely. I had long discussion with the patient in the presence of the reic cid for the need to stay in the hospital till sodium being corrected and follow instruction with close followup. The patient verbalized understanding. 2.Hypokalemia, hypomagnesemia. We will supplement. 3.Anxiety. Discontinue SSRA. 4.Diabetes as by primary. 5.Hypertension, controlled, optimal with the presence of hyponatremia. Hold hydrochlorothiazide, ho ld losartan, and we will follow up. Time spent examining the patient [id number], reviewing data, lab and radiology, placing order, disc ussing the case with the patient, discussing the case with the steam turbine operator including hospitalist and nursing more than 65 minutes. ZORAN Voice ID: [id number] Report ID: [id number]
[2022-07-02] MEDS: POTASSIUM CL 40 MEQ in NA CHLORIDE 0.9% 500 ML IV SCH ×2 (12:26→17:43)
[2022-07-02] MEDS: clonazePAM 1 MG TAB PO PRN (13:11)
[2022-07-02 16:04] LABS: Potassium 3.5 mEq/L (3.5-5.1)
--- NOTE | 2022-07-02 16:46 | EKG ---
Test Date: 2022-07-02 Test Time: 01:23:55 Rn Plastics: LEÓN MEASUREMENT RESULTS: Intervals: Rate: 86 SD: 210 QRSD: 102 QT: 398 QTc: 476 [place]: P: 62 SD: 210 QRS: 74 T: 76 INTERPRETIVE STATEMENTS: Sinus rhythm with 1st degree AV block Otherwise normal ECG Compared to ECG 07/01/2022 09:58:17 First degree AV block now present Electronically Signed On 07-02-22 16:45:40 CDT by Brian Booker
[2022-07-02 18:54] LABS: Potassium 4.4 mEq/L (3.5-5.1)
[2022-07-02] MEDS: SERTRALINE HCL 100 MG TAB PO SCH (21:15)
[2022-07-03] MEDS: clonazePAM 1 MG TAB PO PRN ×4 (03:36→23:23)
[2022-07-03] MEDS: NS KCL 20MEQ 1,000 ML IV SCH (03:44)
[2022-07-03 04:18] LABS: Absolute Lymphocytes (CBC) 2.5 K/uL (0.7-4.9); Hematocrit 33.8 % (36.0-45.0); Lymphocytes % 27.9 % (15.3-44.8); MCV 90.1 fL (80-100); MPV 6.8 fL (7.6-11.3); RBC Red Blood Cell Count 3.75 M/uL (3.86-4.86)
[2022-07-03 04:37] LABS: Albumin 3.3 g/dL (3.4-5.0); Magnesium 1.8 mg/dL (1.6-2.4); Phosphorus 2.2 mg/dL (2.5-4.9); Potassium 4.2 mEq/L (3.5-5.1)
[2022-07-03] MEDS ORDERED: OXCARBAZEPINE 600 MG PO SCH (07:15)
--- NOTE | 2022-07-03 07:24 | P.PN ---
Date of Service: 07/03/22 Subjective: Doesn't feel well today Headache remains the same Nauseated overnight sodium improving ROS: 10 point ROS as noted above, otherwise negative Physical Exam: GEN: Alert, orientedx3, NAD HEENT: Normal conjunctiva, sclera anicteric CV: Regular rate and rhythm, no edema Pulm: Nonlabored respirations on room air ABD: Soft, nontender, nondistended Neuro: Normal speech, normal affect vitals reviewed Problem List: Acute on chronic hyponatremia Acute metabolic encephalopathy secondary to hyponatremia [id number] Hypertension hypothyroidism Anxiety/chronic pain Acute on chronic hyponatremia Nephrology consulted deemed this secondary to high ADH state, poor solute intake / HCTZ Continue IVF, fluid restriction, BMP every 4 hours Na improving IVF dc'd 07/03 restart BP meds, except HCTZ Acute metabolic encephalopathy secondary to hyponatremia CT head negative; patient refused MRI during recent admission. improving [id number] sliding scale insulin Hypertension Hypothyroidism Anxiety/chronic pain Continue home medications Pain medication as needed VTE: Lovenox Code: Full Dispo: Home 24-48hrs
[2022-07-03] MEDS: LEVOTHYROXINE SOD 0.112 MG TAB PO SCH (07:25)
[2022-07-03] MEDS: LEVOTHYROXINE SOD 0.025 MG TAB PO SCH (07:25)
[2022-07-03] MEDS ORDERED: VENLAFAXINE HCL 100 MG PO SCH (08:00)
[2022-07-03] MEDS: OXcarbazepine 150 MG TAB PO SCH (08:32)
[2022-07-03] MEDS: ENOXAPARIN 40 MG/0.4 ML SQ SCH (08:32)
[2022-07-03] MEDS: CLONIDINE HCL 0.3 MG TAB PO SCH ×2 (08:33→16:38)
[2022-07-03] MEDS: carvediloL 12.5 MG TAB PO SCH (08:34)
[2022-07-03] MEDS: VENLAFAXINE HCL 37.5 MG TAB PO SCH ×3 (08:34→16:39)
[2022-07-03] MEDS: CODEINE 30MG/APAP 300MG TAB PO PRN ×3 (10:54→23:21)
--- NOTE | 2022-07-03 12:47 | RAD REPORT ---
EXAM DESCRIPTION: CT - Head Brain Wo Cont - 07/02/2022 6:55 am CLINICAL HISTORY: Altered mental status. TECHNIQUE: 5 mm axial images of the intracranial structures were obtained without intravenous contra st. Coronal and sagittal reformatted images were obtained. COMPARISON: 07/01/2022. DOSE OPTIMIZATION: This facility uses dose optimization techniques as appropriate to perform exams, i ncluding at least one of the following techniques: 1. Automated exposure control. 2. Adjustment of the mA and/or kV according to patient size (this includes techniques or standardized protocols for targeted exams where dose is matched to the indication/reason for exam, i.e. extremiti es or head). 3. Use of iterative reconstructive technique. FINDINGS: No abnormal acute extracerebral fluid collections are demonstrated. The cortical sulci, ventricles, and cisterns are within normal limits. There are no areas of altered attenuation to suggest acute hemorrhage, acute infarct, or mass lesio n. The visualized portions of the paranasal sinuses and mastoid air cells are clear. IMPRESSION: Normal study. Electronically signed by: Nikita Urias MD 07/02/2022 2:13 AM CDT Due to temporary technical issues with the PACS/Fluency reporting system, reports are being signed by the in house radiologists without review as a courtesy to insure prompt reporting. The interpreting radiologist is fully responsible for the content of the report.
--- NOTE | 2022-07-03 13:04 | PN ---
Date of Progress Note: 07/03/2022 Subjective: The patient was admitted with hyponatremia secondary to hydrochlorothiazide and SSRA. T he patient in the hospital was started on IV hydration. Sodium gradually trending up. Physical Examination: Vital Signs: Blood pressure 167/76, pulse of 69, afebrile. The patient had good urine output voidin g. Chest: Clear to auscultation. Heart: S1, S2. Regular. Abdomen: Soft, nontender. Extremities: No edema. Neurologic: Alert. No focality. Laboratory Data: Hemoglobin 11.6. Sodium 129, potassium 4.2, bicarb 25, BUN 8, creatinine 0.4. Chaparro cium 8, phosphorus 2.2, magnesium 1.8, albumin 3.3, corrected calcium 8.5. Current Medications: The patient on include carvedilol 12.5, clonidine 0.3 t.i.d., hydralazine, oxca rbazepine, Zoloft, levothyroxine, magnesium sulfate, and IV fluid. Assessment And Plan: 1.Hyponatremia secondary to hydrochlorothiazide and SSRA, on the recovery, appropriate rise over the last 24 hours. Looked to me started to be in normal volume. I am going to discontinue IV fluid and we will monitor the patient. 2.Hypertension, controlled, optimal. I am going to resume losartan without any hydrochlorothiazide and we will follow up the patient. 3.Hypomagnesemia, status post supplement. KEITH/TRAVIS Voice ID: [id number] Report ID: [id number]
[2022-07-03] MEDS: ONDANSETRON 4 MG/2 ML VIAL IV PRN (19:54)
[2022-07-03] MEDS: SERTRALINE HCL 100 MG TAB PO SCH (20:11)
[2022-07-03] MEDS ORDERED: OXcarbazepine 150 MG TAB PO SCH (21:00)
[2022-07-04] MEDS: CLONIDINE HCL 0.3 MG TAB PO SCH ×2 (01:35→09:00)
[2022-07-04] MEDS: clonazePAM 1 MG TAB PO PRN (06:27)
[2022-07-04] MEDS: LEVOTHYROXINE SOD 0.025 MG TAB PO SCH (06:28)
[2022-07-04] MEDS: LEVOTHYROXINE SOD 0.112 MG TAB PO SCH (06:28)
[2022-07-04 07:07] LABS: Absolute Lymphocytes (CBC) 2.6 K/uL (0.7-4.9); MCV 91.8 fL (80-100); MPV 6.9 fL (7.6-11.3); RBC Red Blood Cell Count 3.26 M/uL (3.86-4.86)
--- NOTE | 2022-07-04 07:07 | P.PN ---
Date of Service: 07/04/22 Subjective: ROS: 10 point ROS as noted above, otherwise negative Physical Exam: GEN: Alert, orientedx3, NAD HEENT: Normal conjunctiva, sclera anicteric CV: Regular rate and rhythm, no edema Pulm: Nonlabored respirations on room air ABD: Soft, nontender, nondistended Neuro: Normal speech, normal affect vitals reviewed Problem List: Acute on chronic hyponatremia Acute metabolic encephalopathy secondary to hyponatremia [id number] Hypertension hypothyroidism Anxiety/chronic pain Acute on chronic hyponatremia Nephrology consulted deemed this secondary to high ADH state, poor solute intake / HCTZ Continue IVF, fluid restriction, BMP every 4 hours Na improving IVF dc'd 07/03 restart BP meds, except HCTZ Acute metabolic encephalopathy secondary to hyponatremia CT head negative; patient refused MRI during recent admission. improving [id number] sliding scale insulin Hypertension Hypothyroidism Anxiety/chronic pain Continue home medications Pain medication as needed VTE: Lovenox Code: Full Dispo: Home 24-48hrs
[2022-07-04 07:23] LABS: Magnesium 1.7 mg/dL (1.6-2.4); Phosphorus 3.3 mg/dL (2.5-4.9); Potassium 4.4 mEq/L (3.5-5.1); Uric Acid 1.8 mg/dL (2.6-6.0)
[2022-07-04 08:39] VITALS: BP 120/75; TEMP 96.7
--- NOTE | 2022-07-04 08:43 | P.DS ---
Admission Date: 07/02/22 Discharge Date: 07/04/22 Reason for Admission: Hyponatremia Consultations: Nephrology - Dr. Merino Brief History of Present Illness: 61yo F, PMH: chronic hyponatremia, syu-svmcctm-yafkepiij diabetes, hypothyroidism, chronic pain, anxiety, hypertension Patient presents to the emergency department for altered mental status, slurred speech. She was seen here the and admitted for similar complaint, left AMA the morning of the , came back to the emergency department again later in the day on the and again left AGAINST MEDICAL ADVICE from the emergency department. She returns again shortly after midnight today sent in by EMS for altered mental status. She was again evaluated in the emergency department labs were significant for sodium 122 potassium 3.3 chloride 92, signs of urine tract infection UDS and EtOH negative CT head repeated again today, negative for acute findings. Patient confused, speech is slurred currently oriented x2 continuously asking for pain medicine for generalized pain. Will need to admit for further evaluation and management of acute metabolic encephalopathy secondary to hyponatremia. She was recently seen by nephrology during her brief stay in the hospital due to that her hyponatremia secondary to high ADH state complicated by diminished solute intake, decreased appetite, chronic pain and nausea. Patient denies taking HCTZ at this time but given her mental status this cannot be confirmed. Will be admitted for further evaluation/management Hospital Course: Problem List: Acute on chronic hyponatremia Acute metabolic encephalopathy secondary to hyponatremia [id number] Hypertension hypothyroidism Anxiety/chronic pain Patient presented with dizziness, fall, unsteady gait due to hyponatremia. Nephrology was consulted and patient was treated with IVF and her hydrochlorothiazide. She had gradual improvement of her symptoms on day of her discharge and felt her normal self. Discussed with nephrology, in agreement patient is stable for discharge Prescription for losartan to replace her losartan-HCT. Follow up: PCP within 3-5 days Nephrology with repeat BMP in 3 weeks Physical Exam: GEN: Alert, orientedx3, NAD HEENT: Normal conjunctiva, sclera anicteric CV: Regular rate and rhythm, no edema Pulm: Nonlabored respirations on room air ABD: Soft, nontender, nondistended Neuro: Normal speech, normal affect Vital Signs/Physical Exam: Temp Pulse Resp BP Pulse Ox 97.1 F 70 16 139/77 95 07/04/22 04:00 07/04/22 04:00 07/04/22 04:00 07/04/22 04:00 07/04/22 04:00 Laboratory Data at Discharge: WBC 6.30 thou/uL (4.3-10.9) 07/04/22 06:15 Hgb 10.1 g/dL (12.0-15.0) L D 07/04/22 06:15 Hct 30.0 % (36.0-45.0) L 07/04/22 06:15 Plt Count 334 thou/uL (152-406) 07/04/22 06:15 Sodium 128 mEq/L (136-145) L 07/04/22 06:15 Potassium 4.4 mEq/L (3.5-5.1) 07/04/22 06:15 BUN 18 mg/dL (7-18) 07/04/22 06:15 Creatinine 0.41 mg/dL (0.55-1.02) L 07/04/22 06:15 Glucose 136 mg/dL (74-106) H 07/04/22 06:15 Uric Acid 1.8 mg/dL (2.6-6.0) L 07/04/22 06:15 Phosphorus 3.3 mg/dL (2.5-4.9) 07/04/22 06:15 Magnesium 1.7 mg/dL (1.6-2.4) 07/04/22 06:15 Total Bilirubin 0.4 mg/dL (0.2-1.0) 07/02/22 01:07 AST 29 U/L (15-37) 07/02/22 01:07 ALT 31 U/L (13-56) 07/02/22 01:07 Alkaline Phosphatase 92 U/L (45-117) 07/02/22 01:07 Home Medications: Levothyroxine Sodium [Synthroid] 137 mcg PO [id number] 03/10/21 Risperidone [Risperdal] 2 mg PO BID 03/10/21 cloNIDine HCL [Catapres*] 0.3 mg PO Q8H 03/10/21 clonazePAM [Klonopin*] 1 mg PO TIDP PRN 03/10/21 ondansetron HCL [Zofran] 4 mg PO Q8HP PRN 03/10/21 Venlafaxine HCl [Effexor] 100 mg PO TIDWM 12/27/21 Metformin ER [Glucophage ER] 500 mg PO BID 12/29/21 OXcarbazepine [Trileptal] 600 mg PO SEECOM 12/29/21 Carvedilol [Coreg] 1 tab PO DAILY 06/30/22 Fenofibrate 1 tab PO DAILY 06/30/22 Trazodone HCl 0.5 - 1 tab PO BEDTIME 06/30/22 Tramadol HCl [Ultram] 50 mg PO Q6H PRN 07/03/22 Zolpidem Tartrate [Ambien] 10 mg PO PRN 07/03/22 Losartan Potassium [Cozaar*] 50 mg PO DAILY 30 Days #30 tab 07/04/22 New Medications: Losartan Potassium [Cozaar*] 50 mg PO DAILY 30 Days #30 tab Physician Discharge Instructions: Patient presented with dizziness, fall, unsteady gait due to hyponatremia. Nephrology was consulted and patient was treated with IVF and her hydrochlorothiazide. She had gradual improvement of her symptoms on day of her discharge and felt her normal self. Discussed with nephrology, in agreement patient is stable for discharge Prescription for losartan to replace her losartan-HCT. Follow up: PCP within 3-5 days Nephrology with repeat BMP in 3 weeks Followup: Unknown,U [Primary Care Provider] - Time spent managing pt's care (in minutes): 45
[2022-07-04] MEDS: carvediloL 12.5 MG TAB PO SCH (09:00)
[2022-07-04] MEDS ORDERED: RISPERIDONE 1 MG TABLET PO SCH (09:00)
[2022-07-04] MEDS ORDERED: LOSARTAN POTASSIUM 50 MG TABLET PO SCH (09:00)
[2022-07-04] MEDS: ENOXAPARIN 40 MG/0.4 ML SQ SCH (09:07)
[2022-07-04] MEDS: OXcarbazepine 150 MG TAB PO SCH (09:08)
[2022-07-04] MEDS: VENLAFAXINE HCL 37.5 MG TAB PO SCH (09:10)
[2022-07-04 11:07] VITALS: O2SAT 95
== END 2022-07-04 10:10 | disposition home or self-care (01) | DRG 640 ==
LOC: ER 00:30 → ERHOLD 03:21 → 2ND 03:34
PROVIDERS: ADMIT Hospitalist; ATTEND Hospitalist
DX: E87.1 Hypo-osmolality and hyponatremia (principal); G93.41 Metabolic encephalopathy; T50.2X5A Adverse effect of carbonic-anhydrase inhibitors, benzothiadiazides and other diuretics, initial encounter; W19.XXXA Unspecified fall, initial encounter; E83.42 Hypomagnesemia; E87.6 Hypokalemia; E11.40 Type 2 diabetes mellitus with diabetic neuropathy, unspecified; I10 Essential (primary) hypertension; F41.9 Anxiety disorder, unspecified; G89.29 Other chronic pain; R42 Dizziness and giddiness; R26.81 Unsteadiness on feet; E89.0 Postprocedural hypothyroidism; K75.9 Inflammatory liver disease, unspecified; F31.9 Bipolar disorder, unspecified; F17.210 Nicotine dependence, cigarettes, uncomplicated; Z79.899 Other long term (current) drug therapy; Z82.49 Family history of ischemic heart disease and other diseases of the circulatory system; Z83.3 Family history of diabetes mellitus; Z80.9 Family history of malignant neoplasm, unspecified
CPT/HCPCS: 36415; 70450; 80048; 80053; 80069; 80307; 81001; 82570; 83735; 83930; 83935; 84132; 84300; 84443; 84484; 84550; 85025; 93005; 96361; 96374; 96375; 99285; G0480; J0360; J1650; J2405; J3475; J3480; J7030; J7040

== ENCOUNTER 2022-07-05 12:20 | Emergency (ER) | payer OTHER ==
--- NOTE | 2022-07-05 12:29 | ER ---
Nurse's Notes [facility] Name: Jaimie Amanda Age: 61 yrs Sex: Female : 1960 Arrival Date: 07/05/2022 Time: 12:20 Bed DIS4 Private MD: Diagnosis: Headache;Nausea;Hypo-osmolality and hyponatremia-chronic;Essential (primary) hypertension Presentation: 07/05 13:32 Chief complaint: Headache and nausea x 2 days. Coronavirus screen: At this time, the hb client does not indicate any symptoms associated with coronavirus-19. Ebola Screen: No symptoms or risks identified at this time. Initial Sepsis Screen: Does the patient meet any 2 criteria? No. Patient's initial sepsis screen is negative. Does the patient have a suspected source of infection? No. Patient's initial sepsis screen is negative. Risk Assessment: Do you want to hurt yourself or someone else? Patient reports no desire to harm self or others. Onset of symptoms was July 04, 2022. 13:32 Method Of Arrival: Ambulatory hb 13:32 Acuity: ZHEN 3 hb Historical: - Allergies: 13:33 No Known Allergies; hb - Home Meds: 13:33 Clonidine Oral [Active]; hb - PMHx: 13:33 Anxiety; Chronic Abdominal Pain; Hypertensive disorder; Hypothyroidism; low NA; NIDDM; hb - PSHx: 13:33 Thyroidectomy; hb - Immunization history:: Adult Immunizations up to date. - Social history:: Smoking status: Patient denies any tobacco usage or history of. Screenin:36 [facility] ED Fall Risk Assessment (Adult) History of falling in the last 3 months, iw including since admission. Abuse screen: Denies threats or abuse. Denies injuries from another. Nutritional screening: No deficits noted. Tuberculosis screening: No symptoms or risk factors identified. Assessment: 12:27 Reassessment: pt told registration that she wants to leave. iw 14:00 General: Appears in no apparent distress. Behavior is calm, cooperative. GI: Abd is iw soft and non tender X 4 quads. Reports nausea. 14:36 Pain: Denies pain. Neuro: Level of Consciousness is awake, alert, obeys commands, Moves iw all extremities. Full function. Cardiovascular: Patient's skin is warm and dry. Respiratory: Respiratory effort is even, unlabored, Respiratory pattern is regular, symmetrical. Vital Signs: 13:32 BP 165 / 85; Pulse 74; Resp 16; Temp 98.8(TE); Pulse Ox 97% on R/A; Weight 68.04 kg; hb Height 5 ft. 4 in. ; Pain 10/10; 13:32 Body Mass Index 25.75 (68.04 kg, 162.56 cm) hb 13:32 Pain Scale: Adult hb ED Course: 12:21 Patient arrived in ED. am2 13:33 Triage completed. hb 13:34 Arm band placed on. hb 13:35 Wilfrid Singh DO is Attending Physician. ms3 13:59 Therese Logan, RN is Primary Nurse. iw 14:37 Patient has correct armband on for positive identification. iw 14:37 No provider procedures requiring assistance completed. iw 15:02 Primary Nurse role handed off by Therese Logan RN iw 15:12 Therese Logan RN is Primary Nurse. iw Administered Medications: 14:12 Drug: Ondansetron PO 4 mg Route: PO; iw 14:30 Follow up: Response: No adverse reaction iw 14:56 Not Given (Physician Discretion): Pantoprazole IV 8 mg/hr IV at 25 ml/hr continuous; iw (Standard dilution is 80 mg in 250 mL NS) 14:56 Not Given (Physician Discretion): Pantoprazole IVP 40 mg IVP once iw Medication: 14:01 VIS not applicable for this client. iw Outcome: 12:28 Patient left the ED. iw 15:00 Discharge ordered by . ms3 15:00 Discharged to home ambulatory, with family. iw 15:00 Condition: good 15:00 Discharge instructions given to patient, Instructed on discharge instructions, follow up and referral plans. Demonstrated understanding of instructions, follow-up care. 15:00 Patient left the ED. iw 15:12 Patient left the ED. iw Signatures: Therese Logan RN RN iw Gail Espinoza RN RN Elisa Gregory am2 Wilfrid Singh DO DO ms3 Corrections: (The following items were deleted from the chart) 13:34 13:33 Allergies: Hydrochlorothiazide; hb hb 13:35 13:32 BP 165 / 85; Pulse 74bpm; Resp 16bpm; Pulse Ox 97% RA; Temp 98.8F Temporal; Pain hb 10/10, Adult; hb 14:36 14:00 GI: Reports nausea, iw iw
--- OUTSIDE RECORDS SUMMARY | 2022-07-05 12:32 | XMS REPORT | Continuity of Care Document ---
:[address] [facility] t Address [address] [place] [address] [place] [id number] Care Team Providers Name Role Phone [facility] Primary Care Physician MATT SIMPSON Attending Clinician Unavailable MATT SIMPSON Attending Clinician Unavailable Doctor Unassigned, [place] Attending Clinician Unavailable WALLY KRISHNAMURTHY Attending Clinician Unavailable Natacha Brewster Attending Clinician Payers Payer Name Policy Type Policy Number Effective Date Expiration Date Sarina castelan [facility] [id number] 2017 00:00:00 PLUS Problems This patient has [...] ers OPHEN INGREDI 07-27 ity of 00:00: [place] [facility] Hmg-Coa Propensi Inactiv Reductas [...] Cente r Alcohol intake 2016-05-01 2016-05-01 Current [facility] 00:00:00 00:00:00 non-drinker of Medical nter alcohol (finding) Sex Assigned At [birth year] [facility] 00:00:00 00:00:00 [facility] Smoking Status Start Date Stop Date Source Smokes tobacco daily 2016-05-01 00:00:00 [facility] Medications Ordered Filled Start Stop Current Ordering [...] [facility]:23: nightly. [address] OXcarbazepi 2017-0 Yes 600mg Q.[id number] Take [address] ne 2-23 [id number] mg by [facility] (TRILEPTAL) 10:23: 3D mouth 3 Med ical 600 MG 59 (three) Center tablet times daily. PARoxetine 2017-0 Yes 40mg QD Take [address] (PAXIL) 40 2-23 by mouth [facility] tablet 10:23: nightly. [facility] [address] OXcarbazepi 2017-0 Yes 600mg Q.[id number] Take [address] ne 2-23 [id number] [facility] by [facility] (TRILEPTAL) 10:23: 3D mouth 3 Med ical 600 MG 59 (three) Center tablet times daily. PARoxetine 2017-0 Yes 40mg QD Take [address] (PAXIL) 40 2-23 by mouth [facility] tablet 10:23: nightly. [facility] 59 [address] OXcarbazepi 2017-0 Yes 600mg Q.[id number] Take [address] ne 2-23 [id number] mg by [facility] (TRILEPTAL) 10:23: 3D mouth 3 Med ical 600 MG 59 (three) Center tablet times daily. PARoxetine 2017-0 Yes 40mg QD Take [address] (PAXIL) 40 2-23 by mouth [facility] tablet 10:23: nightly. [facility] [address] OXcarbazepi 2017-0 Yes 600mg Q.[id number] Take [address] ne 2-23 [id number] mg by [facility] (TRILEPTAL) 10:23: 3D mouth 3 Med ical 600 MG 59 (three) Center tablet times daily. OXcarbazepi 2017-0 Yes 600mg Q.[id number] Take [address] ne 2-23 [id number] mg by [facility] (TRILEPTAL) 10:23: 3D mouth 3 Med ical 600 MG 59 (three) Center tablet times daily. PARoxetine 2017-0 Yes 40mg QD Take [address] (PAXIL) 40 2-23 by mouth [facility] tablet 10:23: nightly. [facility] 59 [address] OXcarbazepi 2017-0 Yes 600mg Q.[id number] Take [address] ne 2-23 [id number] mg by [facility] (TRILEPTAL) 10:23: 3D mouth 3 Med ical 600 MG 59 (three) Center tablet times daily. PARoxetine 2017-0 Yes 40mg QD Take [address] (PAXIL) 40 2-23 by mouth [facility] tablet 10:23: nightly. [address] OXcarbazepi 2017-0 Yes 600mg Q.[id number] Take [address] ne 2-23 [id number] mg by [facility] (TRILEPTAL) 10:23: 3D mouth 3 Med ical 600 MG 59 (three) Center tablet times daily. PARoxetine 2017-0 Yes 40mg QD Take [address] (PAXIL) 40 2-23 by mouth [facility] tablet 10:23: nightly. [address] PARoxetine 2017-0 Yes 40mg QD Take [address] (PAXIL) 40 2-23 by mouth [facility] 10:23: nightly. [address] OXcarbazepi 2017-0 Yes 600mg Q.[id number] Take [address] ne 2-23 [id number] mg by [facility] (TRILEPTAL) 10:23: 3D mouth 3 Med ical 600 MG 59 (three) Center tablet times daily. PARoxetine 2017-0 Yes 40mg QD Take [address] (PAXIL) 40 2-23 by mouth [facility] tablet 10:23: nightly. [address] OXcarbazepi 2017-0 Yes 600mg Q.[id number] Take [address] ne 2-23 [id number] mg by [facility] (TRILEPTAL) 10:23: 3D mouth 3 Med ical 600 MG 59 (three) Center tablet times daily. PARoxetine 2017-0 Yes 40mg QD Take [address] (PAXIL) 40 2-23 by mouth [facility] tablet 10:23: nightly. [address] OXcarbazepi 2017-0 Yes 600mg Q.43135134 Take [address] ne 2-23 [id number] mg by [facility] (TRILEPTAL) 10:23: 3D mouth 3 Med ical 600 MG 59 (three) Center tablet times daily. PARoxetine 2017-0 Yes 40mg QD Take [address] (PAXIL) 40 2-23 by mouth [facility] tablet 10:23: nightly. [address] OXcarbazepi 2017-0 Yes 600mg Q.[id number] Take [address] ne 2-23 [id number] mg by [facility] (TRILEPTAL) 10:23: 3D mouth 3 Med ical 600 MG 59 (three) Center tablet times daily. PARoxetine 2017-0 Yes 40mg QD Take [address] (PAXIL) 40 2-23 by mouth [facility] tablet 10:23: nightly. [address] OXcarbazepi 2017-0 Yes 600mg Q.[id number] Take [address] ne 2-23 [id number] mg by [facility] (TRILEPTAL) 10:23: 3D mouth 3 Med ical 600 MG 59 (three) Center tablet times daily. PARoxetine 2017-0 Yes 40mg QD Take [address] (PAXIL) 40 2-23 by mouth [facility] tablet 10:23: nightly. [address] OXcarbazepi 2017-0 Yes 600mg Q.[id number] Take [address] ne 2-23 [id number] mg by [facility] (TRILEPTAL) 10:23: 3D mouth 3 Med ical 600 MG 59 (three) Center tablet times daily. PARoxetine 2017-0 Yes 40mg QD Take [address] (PAXIL) 40 2-23 by mouth [facility] tablet 10:23: nightly. [address] OXcarbazepi 2017-0 Yes 600mg Q.[id number] Take [address] ne 2-23 [id number] mg by [facility] (TRILEPTAL) 10:23: 3D mouth 3 Med ical 600 MG 59 (three) Center tablet times daily. PARoxetine 2017-0 Yes 40mg QD Take [address] (PAXIL) 40 2-23 by mouth [facility] tablet 10:23: nightly. [address] OXcarbazepi 2017-0 Yes 600mg Q.[id number] Take [address] ne 2-23 [id number] mg by [facility] (TRILEPTAL) 10:23: 3D mouth 3 Med ical 600 MG 59 (three) Center tablet times daily. OXcarbazepi 2017-0 Yes 600mg Q.[id number] Take [address] ne 2-23 [id number] mg by [facility] (TRILEPTAL) 10:23: 3D mouth 3 Med ical 600 MG 59 (three) Center tablet times daily. PARoxetine 2017-0 Yes 40mg QD Take [address] (PAXIL) 40 2-23 by mouth [facility] tablet 10:23: nightly. [address] OXcarbazepi 2017-0 Yes 600mg Q.[id number] Take [address] ne 2-23 [id number] mg by [facility] (TRILEPTAL) 10:23: 3D mouth 3 Med ical 600 MG 59 (three) Center tablet times daily. PARoxetine 2017-0 Yes 40mg QD Take [address] (PAXIL) 40 2-23 by mouth [facility] tablet 10:23: nightly. [address] OXcarbazepi 2017-0 Yes 600mg Q.[id number] Take [address] ne 2-23 [id number] mg by [facility] (TRILEPTAL) 10:23: 3D mouth 3 Med ical 600 MG 59 (three) Center tablet times daily. PARoxetine 2017-0 Yes 40mg QD Take [address] (PAXIL) 40 2-23 by mouth [facility] tablet 10:23: nightly. [address] PARoxetine 2017-0 Yes 40mg QD Take [address] (PAXIL) 40 2-23 by mouth [facility] tablet 10:23: nightly. [address] OXcarbazepi 2017-0 Yes 600mg Q.[id number] Take [address] ne 2-23 [id number] mg by [facility] (TRILEPTAL) 10:23: 3D mouth 3 Med ical 600 MG 59 (three) Center tablet times daily. PARoxetine 2017-0 Yes 40mg QD Take [address] (PAXIL) 40 2-23 by mouth [facility] tablet 10:23: nightly. [address] OXcarbazepi 2017-0 Yes 600mg Q.[id number] Take [address] ne 2-23 [id number] mg by [facility] (TRILEPTAL) 10:23: 3D mouth 3 Med ical 600 MG 59 (three) Center tablet times daily. PARoxetine 2017-0 Yes 40mg QD Take [address] (PAXIL) 40 2-23 by mouth [facility] tablet 10:23: nightly. [address] OXcarbazepi 2017-0 Yes 600mg Q.[id number] Take [address] ne 2-23 [id number] mg by [facility] (TRILEPTAL) 10:23: 3D mouth 3 Med ical 600 MG 59 (three) Center tablet times daily. PARoxetine 2017-0 Yes 40mg QD Take [address] (PAXIL) 40 2-23 by mouth [facility] tablet 10:23: nightly. [facility] [address] OXcarbazepi 2017-0 Yes 600mg Q.[id number] Take [address] ne 2-23 [id number] mg by [facility] (TRILEPTAL) 10:23: 3D mouth 3 Med ical 600 MG 59 (three) Center tablet times daily. PARoxetine 2017-0 Yes 40mg QD Take [address] (PAXIL) 40 2-23 by mouth [facility] tablet 10:23: nightly. [facility] 600[facility] Q.[id number] Take [address] ne 2-23 [id number] mg by [facility] (TRILEPTAL) 10:23: 3D mouth 3 Med ical 600 MG 59 (three) Center tablet times daily. PARoxetine 2017-0 Yes 40mg QD Take [address] (PAXIL) 40 2-23 by mouth [facility] tablet 10:23: nightly. [facility] Yes 600mg Q.[id number] Take [address] ne 2-23 [id number] mg by [facility] (TRILEPTAL) 10:23: 3D mouth 3 Med ical 600 MG 59 (three) Center tablet times daily. PARoxetine 2017-0 Yes 40mg QD Take [address] (PAXIL) 40 2-23 by mouth [facility] tablet 10:23: nightly. [facility] [address] OXcarbazepi 2017-0 Yes 600mg Q.[id number] Take [address] ne 2-23 [id number] mg by [facility] (TRILEPTAL) 10:23: 3D mouth 3 Med ical 600 MG 59 (three) Center tablet times daily. PARoxetine 2017-0 Yes 40mg QD Take [address] (PAXIL) 40 2-23 by mouth [facility] tablet 10:23: nightly. [facility] Yes 600mg Q.[id number] Take [address] ne 2-23 [id number] mg by [facility] (TRILEPTAL) 10:23: 3D mouth 3 Med ical 600 MG 59 (three) Center tablet times daily. PARoxetine 2017-0 Yes 40mg QD Take [address] (PAXIL) 40 2-23 by mouth [facility] tablet 10:23: nightly. [address] OXcarbazepi 2017-0 Yes 600mg Q.[id number] Take [address] ne 2-23 [id number] mg by [facility] (TRILEPTAL) 10:23: 3D mouth 3 Med ical 600 MG 59 (three) Center tablet times daily. OXcarbazepi 2017-0 Yes 600mg Q.[id number] Take [address] ne 2-23 [id number] mg by [facility] (TRILEPTAL) 10:23: 3D mouth 3 Med ical 600 MG 59 (three) Center tablet times daily. PARoxetine 2017-0 Yes 40mg QD Take [address] (PAXIL) 40 2-23 by mouth [facility] tablet 10:23: nightly. [address] OXcarbazepi 2017-0 Yes 600mg Q.[id number] Take [address] ne 2-23 [id number] mg by [facility] (TRILEPTAL) 10:23: 3D mouth 3 Med ical 600 MG 59 (three) Center tablet times daily. PARoxetine 2017-0 Yes 40mg QD Take [address] (PAXIL) 40 2-23 by mouth [facility] tablet 10:23: nightly. [address] OXcarbazepi 2017-0 Yes 600mg Q.[id number] Take [address] ne 2-23 [id number] mg by [facility] (TRILEPTAL) 10:23: 3D mouth 3 Med ical 600 MG 59 (three) Center tablet times daily. PARoxetine 2017-0 Yes 40mg QD Take [address] (PAXIL) 40 2-23 by mouth [facility] tablet 10:23: nightly. [address] PARoxetine 2017-0 Yes 40mg QD Take [address] (PAXIL) 40 2-23 by mouth [facility] tablet 10:23: nightly. [address] OXcarbazepi 2017-0 Yes 600mg Q.[id number] Take [address] ne 2-23 [id number] mg by [facility] (TRILEPTAL) 10:23: 3D mouth 3 Med ical 600 MG 59 (three) Center tablet times daily. PARoxetine 2017-0 Yes 40mg QD Take [address] (PAXIL) 40 2-23 by mouth [facility] tablet 10:23: nightly. [address] OXcarbazepi 2017-0 Yes 600mg Q.[id number] Take [address] ne 2-23 [id number] mg by [facility] (TRILEPTAL) 10:23: 3D mouth 3 Med ical 600 MG 59 (three) Center tablet times daily. PARoxetine 2017-0 Yes 40mg QD Take [address] (PAXIL) 40 2-23 by mouth [facility] tablet 10:23: [facility]ly. [address] 2017-0 Yes 600mg Q.[id number] Take [address] ne 2-23 [id number] mg by [facility] (TRILEPTAL) 10:23: 3D mouth 3 Med ical 600 MG 59 (three) Center tablet times daily. PARoxetine 2017-0 Yes 40mg QD Take [address] (PAXIL) 40 2-23 by mouth [facility] tablet 10:23: nightly. [address] 2017-0 Yes 600mg Q.[id number] Take [address] ne 2-23 [id number] mg by [facility] (TRILEPTAL) 10:23: 3D mouth 3 Med ical 600 MG 59 (three) Center tablet times daily. PARoxetine 2017-0 Yes 40mg QD Take [address] (PAXIL) 40 2-23 by mouth [facility] tablet 10:23: nightly. [address] OXcarbazepi 2017-0 Yes 600mg Q.[id number] Take [address] ne 2-23 [id number] mg by [facility] (TRILEPTAL) 10:23: 3D mouth [...] doses. Max Daily Amount: 3 mg LORazepam 2017- Yes 1mg Take [address] [facility] [address] (ATIVAN) 1 2-23 tablet (1 [facility] tablet 00:00: mg total) Med ical 00 by mouth 3 Center (three) times daily as needed for Anxiety for up to 5 doses. Max Daily Amount: 3 mg LORazepam 2017- Yes 1mg Take [address] [facility] [address] (ATIVAN) 1 2-23 tablet (1 [facility] tablet 00:00: mg total) Med ical 00 by mouth 3 Center (three) times daily as needed for Anxiety for up to 5 doses. Max Daily Amount: 3 mg LORazepam 2017- Yes 1mg Take [address] [facility] (ATIVAN) [...] Goal Plan of Care Note [code = 05377-2] Goal Plan of Care Note [code = 27634-1] Goal Plan of Care Note [code = 08388-4] Goal Plan of Care Note [code = 19317-2] Goal Plan of Care Note [code = 64097-8] Goal Plan of Care Note [code = 69622-6] Goal Plan of Care Note [code = 27812-9] Goal Plan of Care Note [code = 79638-6] Goal Plan of Care Note [code = 18283-4] Goal Plan of Care Note [code = 77636-9] Goal Plan of Care Note [code = 40225-3] Goal Plan of Care Note [code = 72517-1] Goal Plan of Care Note [code = 14528-6] Goal Plan of Care Note [code = 24519-3] Goal Plan of Care Note [code = 88874-7] Goal Plan of Care Note [code = 79074-9] Goal Plan of Care Note [code = 64416-8] Goal Plan of Care Note [code = 81697-9] Goal Plan of Care Note [code = 27403-4] Goal Plan of Care Note [code = 21255-0] Goal Plan of Care Note [code = 50202-1] Goal Plan of Care Note [code = 77304-8] Goal Plan of Care Note [code = 94616-3] Goal Plan of Care Note [code = 37847-0] Goal Plan of Care Note [code = 31503-7] Goal Plan of Care Note [code = 39887-3] Goal Plan of Care Note [code = 87204-6] Goal Plan of Care Note [code = 43951-4] Goal Plan of Care Note [code = 29113-4] Goal Plan of Care Note [code = 72035-6] Goal Plan of Care Note [code = 11431-2] Goal Plan of Care Note [code = 41722-3] Goal Plan of Care Note [code = 39605-5] Goal Plan of Care Note [code = 00855-0] Goal Plan of Care Note [code = 10897-0] Goal Plan of Care Note [code = 54469-4] Goal Plan of Care Note [code = 21627-3] Goal Plan of Care Note [code = 07002-2] Goal Plan of Care Note [code = 36578-5] Goal Plan of Care Note [code = 95501-7] Goal Plan of Care Note [code = 34733-8] Goal Plan of Care Note [code = 76138-3] Goal Plan of Care Note [code = 11398-3] Goal Plan of Care Note [code = 50817-9] Goal Plan of Care Note [code = 08123-3] Goal Plan of Care Note [code = 04450-1] Goal Plan of Care Note [code = 94966-0] Goal Plan of Care Note [code = 52170-7] Goal Plan of Care Note [code = 91975-9] Goal Plan of Care Note [code = 58679-9] Goal Plan of Care Note [code = 38497-4] Goal Plan of Care Note [code = 58323-6] Goal Plan of Care Note [code = 22242-3] Goal Plan of Care Note [code = 26856-5] Goal Plan of Care Note [code = 34295-7] Goal Plan of Care Note [code = 16851-1] Goal Plan of Care Note [code = 03836-2] Goal Plan of Care Note [code = 86398-1] Goal Plan of Care Note [code = 59600-7] Goal Plan of Care Note [code = 62229-3] Goal Plan of Care Note [code = 67186-6] Goal Plan of Care Note [code = 03291-5] Goal Plan of Care Note [code = 28494-2] Goal Plan of Care Note [code = 32353-4] Goal Plan of Care Note [code = 93813-9] Goal Plan of Care Note [code = 86138-1] Goal Plan of Care Note [code = 99038-7] Goal Plan of Care Note [code = 74639-2] Goal Plan of Care Note [code = 96796-3] Goal Plan of Care Note [code = 25564-9] Goal Plan of Care Note [code = 72462-7] Goal Plan of Care Note [code = 75642-5] Goal Plan of Care Note [code = 16417-4] Goal Plan of Care Note [code = 37432-8] Goal Plan of Care Note [code = 95984-1] Goal Plan of Care Note [code = 36764-2] Goal Plan of Care Note [code = 17233-2] Goal Plan of Care Note [code = 60114-8] Goal Plan of Care Note [code = 86797-6] Goal Plan of Care Note [code = 30337-4] Goal Plan of Care Note [code = 97683-2] Goal Plan of Care Note [code = 68323-9] Goal Plan of Care Note [code = 32957-5] Goal Plan of Care Note [code = 53365-3] Goal Plan of Care Note [code = 93799-8] Goal Plan of Care Note [code = 03021-6] Goal Plan of Care Note [code = 19502-2] Goal Plan of Care Note [code = 00957-6] Goal Plan of Care Note [code = 99701-6] Goal Plan of Care Note [code = 49233-8] Goal Plan of Care Note [code = 67468-6] Goal Plan of Care Note [code = 56677-5] Goal Plan of Care Note [code = 49470-6] Goal Plan of Care Note [code = 71960-7] Goal Plan of Care Note [code = 05965-1] Goal Plan of Care Note [code = 56374-8] Goal Plan of Care Note [code = 15177-2] Goal Plan of Care Note [code = 78668-9] Goal Plan of Care Note [code = 17103-3] Goal Plan of Care Note [code = 34506-2] Goal Plan of Care Note [code = 68811-6] Goal Plan of Care Note [code = 33237-5] Goal Plan of Care Note [code = 33558-0] Goal Plan of Care Note [code = 55830-5] Goal Plan of Care Note [code = 86711-7] Goal Plan of Care Note [code = 41151-4] Goal Plan of Care Note [code = 91243-1] Goal Plan of Care Note [code = 58418-2] Goal Plan of Care Note [code = 79896-6] Goal Plan of Care Note [code = 61291-7] Goal Plan of Care Note [code = 66250-4] Goal Plan of Care Note [code = 83533-5] Goal Plan of Care Note [code = 72463-6] Goal Plan of Care Note [code = 89653-5] Goal Plan of Care Note [code = 53122-7] Goal Plan of Care Note [code = 71243-5] Goal Plan of Care Note [code = 76816-5] Goal Plan of Care Note [code = 76715-1] Goal Plan of Care Note [code = 76149-6] Goal Plan of Care Note [code = 79690-1] Goal Plan of Care Note [code = 20905-5] Goal Plan of Care Note [code = 82439-1] Goal Plan of Care Note [code = 45131-9] Goal Plan of Care Note [code = 59624-1] Goal Plan of Care Note [code = 54143-4] Goal Plan of Care Note [code = 29823-4] Goal Plan of Care Note [code = 86284-7] Goal Plan of Care Note [code = 94096-3] Goal Plan of Care Note [code = 59630-8] Goal Plan of Care Note [code = 64410-6] Goal Plan of Care Note [code = 52559-9] Goal Plan of Care Note [code = 92874-4] Goal Plan of Care Note [code = 90395-4] Goal Plan of Care Note [code = 65196-3] Goal Plan of Care Note [code = 77829-8] Goal Plan of Care Note [code = 45868-5] Goal Plan of Care Note [code = 66466-5] Goal Plan of Care Note [code = 17082-1] Goal Plan of Care Note [code = 12573-4] Goal Plan of Care Note [code = 20994-4] Goal Plan of Care Note [code = 97482-4] Goal Plan of Care Note [code = 05193-5] Goal Plan of Care Note [code = 11627-5] Goal Plan of Care Note [code = 71427-7] Goal Plan of Care Note [code = 46136-0] Goal Plan of Care Note [code = 11471-8] Goal Plan of Care Note [code = 41714-7] Goal Plan of Care Note [code = 03781-0] Goal Plan of Care Note [code = 93750-5] Goal Plan of Care Note [code = 60945-1] Goal Plan of Care Note [code = 79232-7] Goal Plan of Care Note [code = 34713-9] Goal Plan of Care Note [code = 38318-7] Goal Plan of Care Note [code = 24247-0] Goal Plan of Care Note [code = 20430-1] Goal Plan of Care Note [code = 67267-6] Goal Plan of Care Note [code = 38090-0] Goal Plan of Care Note [code = 81597-3] Goal Plan of Care Note [code = 20705-3] Goal Plan of Care Note [code = 42458-8] Goal Plan of Care Note [code = 98630-3] Goal Plan of Care Note [code = 91609-0] Goal Plan of Care Note [code = 75295-4] Goal Plan of Care Note [code = 13719-7] Goal Plan of Care Note [code = 34623-6] Goal Plan of Care Note [code = 61810-4] Goal Plan of Care Note [code = 95508-5] Goal Plan of Care Note [code = 89840-0] Goal Plan of Care Note [code = 80772-2] Goal Plan of Care Note [code = 21133-5] Goal Plan of Care Note [code = 60054-4] Goal Plan of Care Note [code = 65778-9] Goal Plan of Care Note [code = 21369-1] Goal Plan of Care Note [code = 51920-2] Goal Plan of Care Note [code = 03189-6] Goal Plan of Care Note [code = 16308-3] Goal Plan of Care Note [code = 77720-8] Goal Plan of Care Note [code = 90466-3] Goal Plan of Care Note [code = 09431-5] Goal Plan of Care Note [code = 02681-9] Goal Plan of Care Note [code = 52913-9] Goal Plan of Care Note [code = 54360-1] Goal Plan of Care Note [code = 33340-6] Goal Plan of Care Note [code = 58349-0] Goal Plan of Care Note [code = 97201-1] Goal Plan of Care Note [code = 78577-4] Goal Plan of Care Note [code = 26990-0] Goal Plan of Care Note [code = 05363-9] Goal Plan of Care Note [code = 45050-5] Goal Plan of Care Note [code = 85102-7] Goal Plan of Care Note [code = 64150-4] Goal Plan of Care Note [code = 10460-1] Goal Plan of Care Note [code = 17580-7] Goal Plan of Care Note [code = 32057-9] Goal Plan of Care Note [code = 83428-5] Goal Plan of Care Note [code = 74256-0] Goal Plan of Care Note [code = 54068-3] Goal Plan of Care Note [code = 79273-9] Goal Plan of Care Note [code = 61520-4] Goal Plan of Care Note [code = 15413-9] Goal Plan of Care Note [code = 75636-0] Goal Plan of Care Note [code = 84365-6] Goal Plan of Care Note [code = 33339-0] Goal Plan of Care Note [code = 66826-4] Goal Plan of Care Note [code = 75307-0] Goal Plan of Care Note [code = 09908-8] Goal Plan of Care Note [code = 33177-8] Goal Plan of Care Note [code = 26235-4] Encounters Start End Encounter Admission Attending Care Care Encounter Source Date/Time Date/Time Type Type Clinicians Facility Department ID 2021-06-01 Outpatient [facility] [id number] [place] 01:36:29 [id number] [facility] 2022-05-24 2022-05-24 Outpatient SFA SFA [id number] Cristian 10:36:59 10:36:59 0318 F Jerman 2022-02-11 2022-02-11 Outpatient SFA SFA [id number] Cristian 09:04:48 09:04:48 1206 F Jerman 2022-02-10 2022-02-10 Outpatient SFA SFA [id number] Cristian 09:29:34 09:29:34 1205 F Jerman 2022-02-10 2022-02-10 Outpatient [id number] 00:00:00 00:00:00 Visit 4089-4cab 089-4cab-9 -9nj3-c8g bf5-j8n707 593zcjg35 bafa93 2022-01-10 2022-01-10 Outpatient SFA SFA [id number] Cristian 09:16:14 09:16:14 1104 F Jerman 2022-01-10 2022-01-10 Outpatient [id number] accaa6-a 00:00:00 00:00:00 Visit aca9-4c83 ca9-4c83-a -q3my-rq6 7eb-bc13f3 9s6x426u7 f032f9 2021-12-19 2021-12-19 Outpatient SFA SFA [id number] 022 Cristian 16:11:31 16:11:31 1013 F Jerman 2021-12-19 2021-12-19 Outpatient [id number] 00:00:00 00:00:00 Visit n054-558i 770-441f-a -adae-62b amelia-62bace xftio57gl fd81af 2021-09-17 2021-09-17 Outpatient [id number]- [id number] v3befu-4 00:00:00 00:00:00 Visit 935a-4f50 35a-4f50-b -v08j-d4i 77d-c2ba85 [id number] [id number] 2020-08-03 2020-08-03 Outpatient R MATT SIMPSON [facility] [id number] [facility] 10:00:00 10:00:00 MATT SIMPSON [facility] 2020-07-25 2020-07-25 Orders Doctor ABE [id number] 00:00:00 00:00:00 Only Unassigned, BK 350.1.13.10 [place] [facility] 4.2.7.2.686 [id number] 2019-09-26 2019-09-26 Outpatient R RAGHU [facility] [id number] [facility] 16:00:00 16:00:00 WALLY [facility] 2018-10-21 2018-10-21 Telephone Gramm, [facility] [id number] 00:00:00 00:00:00 Natacha Shar Nguyen 350.1.13.10 [place] 4.2.7.2.686 [place] [id number] [facility] 204 Building Results Test Description Test Time Test Comments Results Result Comments Source TSH, THIRD GENERATION 2022-05-26 02:57:49 Test Item Value Reference Range Interpretation Comme nts TSH, THIRD GENERATION (test code = 2821) 6.350 UIU/ML 0.400-4.100 H LIPID [id number] 01:09:34 Test Item Value Reference Range Interpretation [...] , SEE CLIENT ANNOUNCE MENT AT [email or web address] RATIO LDL/HDL 2.73 RATIO <3.22 [facility] has important (test code = 2238) pathology staff changes effecti ve 05/07/2022. New pathology staff will provide uninter rupted, excellent patie nt care and clinical consultation. S ee URL: [email or web address] UNLES S OTHERWISE INDIC ATED, ALL TESTING PER FORMED AT [facility] [employer] [facility], [place]. [address] [place] [id number] ISIDRA SUH DIRECTOR: Andrew WHITLEY CONNOR NUMBER [id number] [facility] ACCREDITATION N O. [id number] HEMOGLOBIN [id number] 03:17:24 Test Item Value Reference Range Interpretation Comments HEMOGLOBIN A1c (test 6.4 % 4.2-5.6 H AMERIC AN DIABETES code = 98814) [facility] [place] IDELINES FOR HGB A1C: PREDIABETES/INC REASED RISK [...] TESTING OR LABORATORY C ONSULTATION. TSH, THIRD [id number] 05:15:49 Test Item Value Reference Range Interpretation Comments TSH, THIRD GENERATION (test code 2.080 UIU/ML 0.400-4.100 = 2821) HEMOGLOBIN [id number] 03:46:00 Test Item Value Reference Range Interpretation Comments HEMOGLOBIN A1c (test 6.6 % 4.2-5.6 H AMERIC AN DIABETES code = 20106) ASSOCIATION IDELIN[employer] FOR HGB A1C: PREDIABETES/INC REASED [...] INDICATED, ALL TESTING PER FORMED ATCLINICAL PATH [facility], [facility]. [address] [place] [address], [place] [address] LABORATORY DIRE CTOR: DIANA RUSS M.D. CLIA NUMBER [id number] [facility] [place]. [id number] LIPID [id number] 02:59:52 Test Item Value Reference Range Interpretation [...] MOREINFORMATION , SEE CLIENT ANNOUNCE MENT AT [email or web address] RISK RATIO LDL/HDL 4.02 RATIO <3.22 H (test code = 2238) [id number] 00:00:00 Test Item Value Reference Range Interpretation Comments TSH, THIRD GENERATION (test code 2.080 UIU/ML = 2821) [id number] 00:00:00 Test Item Value Reference Range Interpretation Comments TSH, THIRD GENERATION (test code 2.080 UIU/ML = 2821) [id number] 00:00:00 Test Item Value Reference Range Interpretation Comments TSH, THIRD GENERATION (test code 2.080 UIU/ML = 2821) LIPID [id number] 00:00:00 Test Item Value Reference Range Interpretation Comments CHOLESTEROL (test code = 2210) 292 MG/DL TRIGLYCERIDES (test code = 2232) 184 MG/DL HDL CHOLESTEROL (test code = 2220) 51 MG/DL CALC LDL CHOL (test code = 2237) 205 MG/DL RISK RATIO LDL/HDL (test code = 4.02 RATIO 2238) LIPID [id number] 00:00:00 Test Item Value Reference Range Interpretation Comments CHOLESTEROL (test code = 2210) 292 MG/DL TRIGLYCERIDES (test code = 2232) 184 MG/DL HDL CHOLESTEROL (test code = 2220) 51 MG/DL CALC LDL CHOL (test code = 2237) 205 MG/DL RISK RATIO LDL/HDL (test code = 4.02 RATIO 2238) HEMOGLOBIN [id number] 00:00:00 Test Item Value Reference Range Interpretation Comments HEMOGLOBIN A1c (test code = 32247) 6.6 % HEMOGLOBIN [id number] 00:00:00 Test Item Value Reference Range Interpretation Comments HEMOGLOBIN A1c (test code = 42683) 6.6 % HEMOGLOBIN [id number] 00:00:00 Test Item Value Reference Range Interpretation Comments HEMOGLOBIN A1c (test code = 11166) 6.6 % [id number] 00:00:00 Test Item Value Reference Range Interpretation Comments TSH, THIRD GENERATION (test code 2.080 UIU/ML = 2821) [id number] 00:00:00 Test Item Value Reference Range Interpretation Comments TSH, THIRD GENERATION (test code 2.080 UIU/ML = 2821) [id number] 00:00:00 Test Item Value Reference Range Interpretation Comments TSH, THIRD GENERATION (test code 2.080 UIU/ML = 2821) LIPID [id number] 00:00:00 Test Item Value Reference Range Interpretation Comments CHOLESTEROL (test code = 2210) 292 MG/DL TRIGLYCERIDES (test code = 2232) 184 MG/DL HDL CHOLESTEROL (test code = 2220) 51 MG/DL CALC LDL CHOL (test code = 2237) 205 MG/DL RISK RATIO LDL/HDL (test code = 4.02 RATIO 2238) LIPID [id number] 00:00:00 Test Item Value Reference Range Interpretation Comments CHOLESTEROL (test code = 2210) 292 MG/DL TRIGLYCERIDES (test code = 2232) 184 MG/DL HDL CHOLESTEROL (test code = 2220) 51 MG/DL CALC LDL CHOL (test code = 2237) 205 MG/DL RISK RATIO LDL/HDL (test code = 4.02 RATIO 2238) HEMOGLOBIN [id number] 00:00:00 Test Item Value Reference Range Interpretation Comments HEMOGLOBIN A1c (test code = 90799) 6.6 % HEMOGLOBIN [id number] 00:00:00 Test Item Value Reference Range Interpretation Comments HEMOGLOBIN A1c (test code = 53812) 6.6 % HEMOGLOBIN [id number] 00:00:00 Test Item Value Reference Range Interpretation Comments HEMOGLOBIN A1c (test code = 10531) 6.6 % [id number] 00:00:00 Test Item Value Reference Range Interpretation Comments TSH, THIRD GENERATION (test code 2.080 UIU/ML = 2821) [id number] 00:00:00 Test Item Value Reference Range Interpretation Comments TSH, THIRD GENERATION (test code 2.080 UIU/ML = 2821) LIPID [id number] 00:00:00 Test Item Value Reference Range Interpretation Comments CHOLESTEROL (test code = 2210) 292 MG/DL TRIGLYCERIDES (test code = 2232) 184 MG/DL HDL CHOLESTEROL (test code = 2220) 51 MG/DL CALC LDL CHOL (test code = 2237) 205 MG/DL RISK RATIO LDL/HDL (test code = 4.02 RATIO 2238) HEMOGLOBIN [id number] 00:00:00 Test Item Value Reference Range Interpretation Comments HEMOGLOBIN A1c (test code = 40489) 6.6 % HEMOGLOBIN [id number] 00:00:00 Test Item Value Reference Range Interpretation Comments HEMOGLOBIN A1c (test code = 72841) 6.6 % [id number] 00:00:00 Test Item Value Reference Range Interpretation Comments TSH, THIRD GENERATION (test code 2.080 UIU/ML = 2821) [id number] 00:00:00 Test Item Value Reference Range Interpretation Comments TSH, THIRD GENERATION (test code 2.080 UIU/ML = 2821) [id number] 00:00:00 Test Item Value Reference Range Interpretation Comments TSH, THIRD GENERATION (test code 2.080 UIU/ML = 2821) LIPID [id number] 00:00:00 Test Item Value Reference Range Interpretation Comments CHOLESTEROL (test code = 2210) 292 MG/DL TRIGLYCERIDES (test code = 2232) 184 MG/DL HDL CHOLESTEROL (test code = 2220) 51 MG/DL CALC LDL CHOL (test code = 2237) 205 MG/DL RISK RATIO LDL/HDL (test code = 4.02 RATIO 2238) LIPID [id number] 00:00:00 Test Item Value Reference Range Interpretation Comments CHOLESTEROL (test code = 2210) 292 MG/DL TRIGLYCERIDES (test code = 2232) 184 MG/DL HDL CHOLESTEROL (test code = 2220) 51 MG/DL CALC LDL CHOL (test code = 2237) 205 MG/DL RISK RATIO LDL/HDL (test code = 4.02 RATIO 2238) HEMOGLOBIN [id number] 00:00:00 Test Item Value Reference Range Interpretation Comments HEMOGLOBIN A1c (test code = 93865) 6.6 % HEMOGLOBIN [id number] 00:00:00 Test Item Value Reference Range Interpretation Comments HEMOGLOBIN A1c (test code = 61284) 6.6 % HEMOGLOBIN [id number] 00:00:00 Test Item Value Reference Range Interpretation Comments HEMOGLOBIN A1c (test code = 15942) 6.6 % HEMOGLOBIN [id number] 00:00:00 Test Item Value Reference Range Interpretation Comments HEMOGLOBIN A1c (test code = 39284) 6.8 % HEMOGLOBIN [id number] 00:00:00 Test Item Value Reference Range Interpretation Comments HEMOGLOBIN A1c (test code = 56342) 6.8 % HEMOGLOBIN [id number] 00:00:00 Test Item Value Reference Range Interpretation Comments HEMOGLOBIN A1c (test code = 27954) 6.8 % LIPID [id number] 00:00:00 Test Item Value Reference Range Interpretation Comments CHOLESTEROL (test code = 2210) 303 MG/DL TRIGLYCERIDES (test code = 2232) 191 MG/DL HDL CHOLESTEROL (test code = 2220) 61 MG/DL CALC LDL CHOL (test code = 2237) 205 MG/DL RISK RATIO LDL/HDL (test code = 3.36 RATIO 2238) LIPID [id number] 00:00:00 Test Item Value Reference Range Interpretation Comments CHOLESTEROL (test code = 2210) 303 MG/DL TRIGLYCERIDES (test code = 2232) 191 MG/DL HDL CHOLESTEROL (test code = 2220) 61 MG/DL CALC LDL CHOL (test code = 2237) 205 MG/DL RISK RATIO LDL/HDL (test code = 3.36 RATIO 2238) [id number] 00:00:00 Test Item Value Reference Range Interpretation Comments TSH, THIRD GENERATION (test code 0.769 UIU/ML = 2821) [id number] 00:00:00 Test Item Value Reference Range Interpretation Comments TSH, THIRD GENERATION (test code 0.769 UIU/ML = 2821) [id number] 00:00:00 Test Item Value Reference Range Interpretation Comments TSH, THIRD GENERATION (test code 0.769 UIU/ML = 2821) COMPREHENSIVE METABOLIC [id number] 00:00:00 Test Item Value Reference Range Interpretation Comments GLUCOSE (test code = 2217) 131 MG/DL BUN (test code = 2208) 13 MG/DL CREATININE (test code = 2214) 0.65 MG/DL eGFR AMER. (test code 113 ML/MIN/1.73 = 30850) eGFR NON- AMER. (test 97 ML/MIN/1.73 code = 13169) CALC BUN/CREAT (test code = 20 RATIO [...] code = 2219) 23 U/L COMPREHENSIVE METABOLIC [id number] 00:00:00 Test Item Value Reference Range Interpretation Comments GLUCOSE (test code = 2217) 131 MG/DL BUN (test code = 2208) 13 MG/DL CREATININE (test code = 2214) 0.65 MG/DL eGFR AMER. (test code 113 ML/MIN/1.73 = 21759) eGFR NON- AMER. (test 97 ML/MIN/1.73 code = 42520) CALC BUN/CREAT (test code = 20 RATIO [...] (test code = 2219) 23 U/L HEMOGLOBIN [id number] 00:00:00 Test Item Value Reference Range Interpretation Comments HEMOGLOBIN A1c (test code = 41064) 6.8 % HEMOGLOBIN [id number] 00:00:00 Test Item Value Reference Range Interpretation Comments HEMOGLOBIN A1c (test code = 85850) 6.8 % HEMOGLOBIN [id number] 00:00:00 Test Item Value Reference Range Interpretation Comments HEMOGLOBIN A1c (test code = 37629) 6.8 % LIPID [id number] 00:00:00 Test Item Value Reference Range Interpretation Comments CHOLESTEROL (test code = 2210) 303 MG/DL TRIGLYCERIDES (test code = 2232) 191 MG/DL HDL CHOLESTEROL (test code = 2220) 61 MG/DL CALC LDL CHOL (test code = 2237) 205 MG/DL RISK RATIO LDL/HDL (test code = 3.36 RATIO 2238) LIPID [id number] 00:00:00 Test Item Value Reference Range Interpretation Comments CHOLESTEROL (test code = 2210) 303 MG/DL TRIGLYCERIDES (test code = 2232) 191 MG/DL HDL CHOLESTEROL (test code = 2220) 61 MG/DL CALC LDL CHOL (test code = 2237) 205 MG/DL RISK RATIO LDL/HDL (test code = 3.36 RATIO 2238) [id number] 00:00:00 Test Item Value Reference Range Interpretation Comments TSH, THIRD GENERATION (test code 0.769 UIU/ML = 2821) [id number] 00:00:00 Test Item Value Reference Range Interpretation Comments TSH, THIRD GENERATION (test code 0.769 UIU/ML = 2821) [id number] 00:00:00 Test Item Value Reference Range Interpretation Comments TSH, THIRD GENERATION (test code 0.769 UIU/ML = 2821) COMPREHENSIVE METABOLIC [id number] 00:00:00 Test Item Value Reference Range Interpretation Comments GLUCOSE (test code = 2217) 131 MG/DL BUN (test code = 2208) 13 MG/DL CREATININE (test code = 2214) 0.65 MG/DL eGFR AMER. (test code 113 ML/MIN/1.73 = 93714) eGFR NON- AMER. (test 97 ML/MIN/1.73 code = 45526) CALC BUN/CREAT (test code = 20 RATIO [...] code = 2219) 23 U/L COMPREHENSIVE METABOLIC [id number] 00:00:00 Test Item Value Reference Range Interpretation Comments GLUCOSE (test code = 2217) 131 MG/DL BUN (test code = 2208) 13 MG/DL CREATININE (test code = 2214) 0.65 MG/DL eGFR AMER. (test code 113 ML/MIN/1.73 = 18154) eGFR NON- AMER. (test 97 ML/MIN/1.73 code = 12117) CALC BUN/CREAT (test code = 20 RATIO [...] (test code = 2219) 23 U/L HEMOGLOBIN [id number] 00:00:00 Test Item Value Reference Range Interpretation Comments HEMOGLOBIN A1c (test code = 45729) 6.8 % HEMOGLOBIN [id number] 00:00:00 Test Item Value Reference Range Interpretation Comments HEMOGLOBIN A1c (test code = 46287) 6.8 % LIPID [id number] 00:00:00 Test Item Value Reference Range Interpretation Comments CHOLESTEROL (test code = 2210) 303 MG/DL TRIGLYCERIDES (test code = 2232) 191 MG/DL HDL CHOLESTEROL (test code = 2220) 61 MG/DL CALC LDL CHOL (test code = 2237) 205 MG/DL RISK RATIO LDL/HDL (test code = 3.36 RATIO 2238) [id number] 00:00:00 Test Item Value Reference Range Interpretation Comments TSH, THIRD GENERATION (test code 0.769 UIU/ML = 2821) [id number] 00:00:00 Test Item Value Reference Range Interpretation Comments TSH, THIRD GENERATION (test code 0.769 UIU/ML = 2821) COMPREHENSIVE METABOLIC [id number] 00:00:00 Test Item Value Reference Range Interpretation Comments GLUCOSE (test code = 2217) 131 MG/DL BUN (test code = 2208) 13 MG/DL CREATININE (test code = 2214) 0.65 MG/DL eGFR AMER. (test code 113 ML/MIN/1.73 = 99073) eGFR NON- AMER. (test 97 ML/MIN/1.73 code = 50239) CALC BUN/CREAT (test code = 20 RATIO [...] (test code = 2219) 23 U/L HEMOGLOBIN [id number] 00:00:00 Test Item Value Reference Range Interpretation Comments HEMOGLOBIN A1c (test code = 16352) 6.8 % HEMOGLOBIN [id number] 00:00:00 Test Item Value Reference Range Interpretation Comments HEMOGLOBIN A1c (test code = 55730) 6.8 % HEMOGLOBIN [id number] 00:00:00 Test Item Value Reference Range Interpretation Comments HEMOGLOBIN A1c (test code = 95608) 6.8 % LIPID [id number] 00:00:00 Test Item Value Reference Range Interpretation Comments CHOLESTEROL (test code = 2210) 303 MG/DL TRIGLYCERIDES (test code = 2232) 191 MG/DL HDL CHOLESTEROL (test code = 2220) 61 MG/DL CALC LDL CHOL (test code = 2237) 205 MG/DL RISK RATIO LDL/HDL (test code = 3.36 RATIO 2238) LIPID [id number] 00:00:00 Test Item Value Reference Range Interpretation Comments CHOLESTEROL (test code = 2210) 303 MG/DL TRIGLYCERIDES (test code = 2232) 191 MG/DL HDL CHOLESTEROL (test code = 2220) 61 MG/DL CALC LDL CHOL (test code = 2237) 205 MG/DL RISK RATIO LDL/HDL (test code = 3.36 RATIO 2238) [id number] 00:00:00 Test Item Value Reference Range Interpretation Comments TSH, THIRD GENERATION (test code 0.769 UIU/ML = 2821) [id number] 00:00:00 Test Item Value Reference Range Interpretation Comments TSH, THIRD GENERATION (test code 0.769 UIU/ML = 2821) [id number] 00:00:00 Test Item Value Reference Range Interpretation Comments TSH, THIRD GENERATION (test code 0.769 UIU/ML = 2821) COMPREHENSIVE METABOLIC [id number] 00:00:00 Test Item Value Reference Range Interpretation Comments GLUCOSE (test code = 2217) 131 MG/DL BUN (test code = 2208) 13 MG/DL CREATININE (test code = 2214) 0.65 MG/DL eGFR AMER. (test code 113 ML/MIN/1.73 = 41784) eGFR NON- AMER. (test 97 ML/MIN/1.73 code = 15356) CALC BUN/CREAT (test code = 20 RATIO [...] code = 2219) 23 U/L COMPREHENSIVE METABOLIC [id number] 00:00:00 Test Item Value Reference Range Interpretation Comments GLUCOSE (test code = 2217) 131 MG/DL BUN (test code = 2208) 13 MG/DL CREATININE (test code = 2214) 0.65 MG/DL eGFR AMER. (test code 113 ML/MIN/1.73 = 43727) eGFR NON- AMER. (test 97 ML/MIN/1.73 code = 93849) CALC BUN/CREAT (test code = 20 RATIO [...] (test code = 2219) 23 U/L HEMOGLOBIN [id number] 00:00:00 Test Item Value Reference Range Interpretation Comments HEMOGLOBIN A1c (test code = 62482) 6.6 % HEMOGLOBIN [id number] 00:00:00 Test Item Value Reference Range Interpretation Comments HEMOGLOBIN A1c (test code = 45278) 6.6 % HEMOGLOBIN [id number] 00:00:00 Test Item Value Reference Range Interpretation Comments HEMOGLOBIN A1c (test code = 32463) 6.6 % LIPID [id number] 00:00:00 Test Item Value Reference Range Interpretation Comments CHOLESTEROL (test code = 2210) 261 MG/DL TRIGLYCERIDES (test code = 2232) 159 MG/DL HDL CHOLESTEROL (test code = 2220) 82 MG/DL CALC LDL CHOL (test code = 2237) 150 MG/DL RISK RATIO LDL/HDL (test code = 1.83 RATIO 2238) LIPID [id number] 00:00:00 Test Item Value Reference Range Interpretation Comments CHOLESTEROL (test code = 2210) 261 MG/DL TRIGLYCERIDES (test code = 2232) 159 MG/DL HDL CHOLESTEROL (test code = 2220) 82 MG/DL CALC LDL CHOL (test code = 2237) 150 MG/DL RISK RATIO LDL/HDL (test code = 1.83 RATIO 2238) COMPREHENSIVE METABOLIC [id number] 00:00:00 Test Item Value Reference Range Interpretation Comments GLUCOSE (test code = 2217) 144 MG/DL BUN (test code = 2208) 15 MG/DL CREATININE (test code = 2214) 0.85 MG/DL eGFR AMER. (test code 87 ML/MIN/1.73 = 81957) eGFR NON- AMER. (test 75 ML/MIN/1.73 code = 75285) CALC BUN/CREAT (test code = 18 RATIO [...] code = 2219) 50 U/L COMPREHENSIVE METABOLIC [id number] 00:00:00 Test Item Value Reference Range Interpretation Comments GLUCOSE (test code = 2217) 144 MG/DL BUN (test code = 2208) 15 MG/DL CREATININE (test code = 2214) 0.85 MG/DL eGFR AMER. (test code 87 ML/MIN/1.73 = 90010) eGFR NON- AMER. (test 75 ML/MIN/1.73 code = 59941) CALC BUN/CREAT (test code = 18 RATIO [...] THYROX. BIND. CAPAC. (test code 1.1 = 85553) T4 (THYROXINE) (test code = 4.3 UG/DL 2819) CORRECTED T4 (FTI) (test code = 3.9 UG/DL 2820) TSH, THIRD GENERATION (test 18.900 UIU/ML code = 2821) THYROID II PROFILE (T3U, T4, T7, TSH)[id number] 00:00:00 Test Item Value Reference Range Interpretation Comments T-UPTAKE (test code = 2817) 30.2 % THYROX. BIND. CAPAC. (test code 1.1 = 22752) T4 (THYROXINE) (test code = 4.3 UG/DL 2819) CORRECTED T4 (FTI) (test code = 3.9 UG/DL 2820) TSH, THIRD GENERATION (test 18.900 UIU/ML code = 2821) HEMOGLOBIN [id number] 00:00:00 Test Item Value Reference Range Interpretation Comments HEMOGLOBIN A1c (test code = 08471) 6.6 % HEMOGLOBIN [id number] 00:00:00 Test Item Value Reference Range Interpretation Comments HEMOGLOBIN A1c (test code = 59377) 6.6 % HEMOGLOBIN [id number] 00:00:00 Test Item Value Reference Range Interpretation Comments HEMOGLOBIN A1c (test code = 50713) 6.6 % LIPID [id number] 00:00:00 Test Item Value Reference Range Interpretation Comments CHOLESTEROL (test code = 2210) 261 MG/DL TRIGLYCERIDES (test code = 2232) 159 MG/DL HDL CHOLESTEROL (test code = 2220) 82 MG/DL CALC LDL CHOL (test code = 2237) 150 MG/DL RISK RATIO LDL/HDL (test code = 1.83 RATIO 2238) LIPID [id number] 00:00:00 Test Item Value Reference Range Interpretation Comments CHOLESTEROL (test code = 2210) 261 MG/DL TRIGLYCERIDES (test code = 2232) 159 MG/DL HDL CHOLESTEROL (test code = 2220) 82 MG/DL CALC LDL CHOL (test code = 2237) 150 MG/DL RISK RATIO LDL/HDL (test code = 1.83 RATIO 2238) COMPREHENSIVE METABOLIC [id number] 00:00:00 Test Item Value Reference Range Interpretation Comments GLUCOSE (test code = 2217) 144 MG/DL BUN (test code = 2208) 15 MG/DL CREATININE (test code = 2214) 0.85 MG/DL eGFR AMER. (test code 87 ML/MIN/1.73 = 55086) eGFR NON- AMER. (test 75 ML/MIN/1.73 code = 95816) CALC BUN/CREAT (test code = 18 RATIO [...] code = 2219) 50 U/L COMPREHENSIVE METABOLIC [id number] 00:00:00 Test Item Value Reference Range Interpretation Comments GLUCOSE (test code = 2217) 144 MG/DL BUN (test code = 2208) 15 MG/DL CREATININE (test code = 2214) 0.85 MG/DL eGFR AMER. (test code 87 ML/MIN/1.73 = 34917) eGFR NON- AMER. (test 75 ML/MIN/1.73 code = 90428) CALC BUN/CREAT (test code = 18 RATIO [...] THYROX. BIND. CAPAC. (test code 1.1 = 97963) T4 (THYROXINE) (test code = 4.3 UG/DL 2819) CORRECTED T4 (FTI) (test code = 3.9 UG/DL 2820) TSH, THIRD GENERATION (test 18.900 UIU/ML code = 2821) THYROID II PROFILE (T3U, T4, T7, TSH)2020-05-23 00:00:00 Test Item Value Reference Range Interpretation Comments T-UPTAKE (test code = 2817) 30.2 % THYROX. BIND. CAPAC. (test code 1.1 = 23267) T4 (THYROXINE) (test code = 4.3 UG/DL 2819) CORRECTED T4 (FTI) (test code = 3.9 UG/DL 2820) TSH, THIRD GENERATION (test 18.900 UIU/ML code = 2821) HEMOGLOBIN [id number] 00:00:00 Test Item Value Reference Range Interpretation Comments HEMOGLOBIN A1c (test code = 18431) 6.6 % HEMOGLOBIN [id number] 00:00:00 Test Item Value Reference Range Interpretation Comments HEMOGLOBIN A1c (test code = 13802) 6.6 % LIPID [id number] 00:00:00 Test Item Value Reference Range Interpretation Comments CHOLESTEROL (test code = 2210) 261 MG/DL TRIGLYCERIDES (test code = 2232) 159 MG/DL HDL CHOLESTEROL (test code = 2220) 82 MG/DL CALC LDL CHOL (test code = 2237) 150 MG/DL RISK RATIO LDL/HDL (test code = 1.83 RATIO 2238) COMPREHENSIVE METABOLIC [id number] 00:00:00 Test Item Value Reference Range Interpretation Comments GLUCOSE (test code = 2217) 144 MG/DL BUN (test code = 2208) 15 MG/DL CREATININE (test code = 2214) 0.85 MG/DL eGFR AMER. (test code 87 ML/MIN/1.73 = 15119) eGFR NON- AMER. (test 75 ML/MIN/1.73 code = 57667) CALC BUN/CREAT (test code = 18 RATIO [...] THYROX. BIND. CAPAC. (test code 1.1 = 36269) T4 (THYROXINE) (test code = 4.3 UG/DL 2819) CORRECTED T4 (FTI) (test code = 3.9 UG/DL 2820) TSH, THIRD GENERATION (test 18.900 UIU/ML code = 2821) HEMOGLOBIN [id number] 00:00:00 Test Item Value Reference Range Interpretation Comments HEMOGLOBIN A1c (test code = 21868) 6.6 % HEMOGLOBIN [id number] 00:00:00 Test Item Value Reference Range Interpretation Comments HEMOGLOBIN A1c (test code = 00881) 6.6 % HEMOGLOBIN [id number] 00:00:00 Test Item Value Reference Range Interpretation Comments HEMOGLOBIN A1c (test code = 28358) 6.6 % LIPID [id number] 00:00:00 Test Item Value Reference Range Interpretation Comments CHOLESTEROL (test code = 2210) 261 MG/DL TRIGLYCERIDES (test code = 2232) 159 MG/DL HDL CHOLESTEROL (test code = 2220) 82 MG/DL CALC LDL CHOL (test code = 2237) 150 MG/DL RISK RATIO LDL/HDL (test code = 1.83 RATIO 2238) LIPID [id number] 00:00:00 Test Item Value Reference Range Interpretation Comments CHOLESTEROL (test code = 2210) 261 MG/DL TRIGLYCERIDES (test code = 2232) 159 MG/DL HDL CHOLESTEROL (test code = 2220) 82 MG/DL CALC LDL CHOL (test code = 2237) 150 MG/DL RISK RATIO LDL/HDL (test code = 1.83 RATIO 2238) COMPREHENSIVE METABOLIC [id number] 00:00:00 Test Item Value Reference Range Interpretation Comments GLUCOSE (test code = 2217) 144 MG/DL BUN (test code = 2208) 15 MG/DL CREATININE (test code = 2214) 0.85 MG/DL eGFR AMER. (test code 87 ML/MIN/1.73 = 03016) eGFR NON- AMER. (test 75 ML/MIN/1.73 code = 72799) CALC BUN/CREAT (test code = 18 RATIO [...] code = 2219) 50 U/L COMPREHENSIVE METABOLIC [id number] 00:00:00 Test Item Value Reference Range Interpretation Comments GLUCOSE (test code = 2217) 144 MG/DL BUN (test code = 2208) 15 MG/DL CREATININE (test code = 2214) 0.85 MG/DL eGFR AMER. (test code 87 ML/MIN/1.73 = 06692) eGFR NON- AMER. (test 75 ML/MIN/1.73 code = 30910) CALC BUN/CREAT (test code = 18 RATIO [...] THYROX. BIND. CAPAC. (test code 1.1 = 65803) T4 (THYROXINE) (test code = 4.3 UG/DL 2819) CORRECTED T4 (FTI) (test code = 3.9 UG/DL 2820) TSH, THIRD GENERATION (test 18.900 UIU/ML code = 2821) THYROID II PROFILE (T3U, T4, T7, TSH)2020-05-23 00:00:00 Test Item Value Reference Range Interpretation Comments T-UPTAKE (test code = 2817) 30.2 % THYROX. BIND. CAPAC. (test code 1.1 = 50188) T4 (THYROXINE) (test code = 4.3 UG/DL 2819) CORRECTED T4 (FTI) (test code = 3.9 UG/DL 2820) TSH, THIRD GENERATION (test 18.900 UIU/ML code = 2821) HEMOGLOBIN [id number] 00:00:00 Test Item Value Reference Range Interpretation Comments HEMOGLOBIN A1c (test code = 87445) 6.7 % HEMOGLOBIN [id number] 00:00:00 Test Item Value Reference Range Interpretation Comments HEMOGLOBIN A1c (test code = 24759) 6.7 % HEMOGLOBIN [id number] 00:00:00 Test Item Value Reference Range Interpretation Comments HEMOGLOBIN A1c (test code = 85526) 6.7 % LIPID [id number] 00:00:00 Test Item Value Reference Range Interpretation Comments CHOLESTEROL (test code = 2210) 267 MG/DL TRIGLYCERIDES (test code = 2232) 137 MG/DL HDL CHOLESTEROL (test code = 2220) 48 MG/DL CALC LDL CHOL (test code = 2237) 192 MG/DL RISK RATIO LDL/HDL (test code = 4.00 RATIO 2238) LIPID [id number] 00:00:00 Test Item Value Reference Range Interpretation Comments CHOLESTEROL (test code = 2210) 267 MG/DL TRIGLYCERIDES (test code = 2232) 137 MG/DL HDL CHOLESTEROL (test code = 2220) 48 MG/DL CALC LDL CHOL (test code = 2237) 192 MG/DL RISK RATIO LDL/HDL (test code = 4.00 RATIO 2238) COMPREHENSIVE METABOLIC [id number] 00:00:00 Test Item Value Reference Range Interpretation Comments GLUCOSE (test code = 2217) 155 MG/DL BUN (test code = 2208) 14 MG/DL CREATININE (test code = 2214) 0.52 MG/DL eGFR AMER. (test code 122 ML/MIN/1.73 = 69282) eGFR NON- AMER. (test 105 ML/MIN/1.73 code = 24716) CALC BUN/CREAT (test code = 27 RATIO [...] code = 2219) 27 U/L COMPREHENSIVE METABOLIC [id number] 00:00:00 Test Item Value Reference Range Interpretation Comments GLUCOSE (test code = 2217) 155 MG/DL BUN (test code = 2208) 14 MG/DL CREATININE (test code = 2214) 0.52 MG/DL eGFR AMER. (test code 122 ML/MIN/1.73 = 86914) eGFR NON- AMER. (test 105 ML/MIN/1.73 code = 83867) CALC BUN/CREAT (test code = 27 RATIO [...] THYROX. BIND. CAPAC. (test code 1.0 = 32272) T4 (THYROXINE) (test code = 4.7 UG/DL 2819) CORRECTED T4 (FTI) (test code = 4.7 UG/DL 2820) TSH, THIRD GENERATION (test code 0.201 UIU/ML = 2821) THYROID II PROFILE (T3U, T4, T7, TSH)2019 00:00:00 Test Item Value Reference Range Interpretation Comments T-UPTAKE (test code = 281) 33.1 % THYROX. BIND. CAPAC. (test code 1.0 = 72425) T4 (THYROXINE) (test code = 4.7 UG/DL 2819) CORRECTED T4 (FTI) (test code = 4.7 UG/DL 2820) TSH, THIRD GENERATION (test code 0.201 UIU/ML = 2821) HEMOGLOBIN [id number] 00:00:00 Test Item Value Reference Range Interpretation Comments HEMOGLOBIN A1c (test code = 34971) 6.7 % HEMOGLOBIN [id number] 00:00:00 Test Item Value Reference Range Interpretation Comments HEMOGLOBIN A1c (test code = 04238) 6.7 % HEMOGLOBIN [id number] 00:00:00 Test Item Value Reference Range Interpretation Comments HEMOGLOBIN A1c (test code = 38641) 6.7 % LIPID [id number] 00:00:00 Test Item Value Reference Range Interpretation Comments CHOLESTEROL (test code = 2210) 267 MG/DL TRIGLYCERIDES (test code = 2232) 137 MG/DL HDL CHOLESTEROL (test code = 2220) 48 MG/DL CALC LDL CHOL (test code = 2237) 192 MG/DL RISK RATIO LDL/HDL (test code = 4.00 RATIO 2238) LIPID [id number] 00:00:00 Test Item Value Reference Range Interpretation Comments CHOLESTEROL (test code = 2210) 267 MG/DL TRIGLYCERIDES (test code = 2232) 137 MG/DL HDL CHOLESTEROL (test code = 2220) 48 MG/DL CALC LDL CHOL (test code = 2237) 192 MG/DL RISK RATIO LDL/HDL (test code = 4.00 RATIO 2238) COMPREHENSIVE METABOLIC [id number] 00:00:00 Test Item Value Reference Range Interpretation Comments GLUCOSE (test code = 2217) 155 MG/DL BUN (test code = 2208) 14 MG/DL CREATININE (test code = 2214) 0.52 MG/DL eGFR AMER. (test code 122 ML/MIN/1.73 = 20758) eGFR NON- AMER. (test 105 ML/MIN/1.73 code = 78543) CALC BUN/CREAT (test code = 27 RATIO [...] code = 2219) 27 U/L COMPREHENSIVE METABOLIC [id number] 00:00:00 Test Item Value Reference Range Interpretation Comments GLUCOSE (test code = 2217) 155 MG/DL BUN (test code = 2208) 14 MG/DL CREATININE (test code = 2214) 0.52 MG/DL eGFR AMER. (test code 122 ML/MIN/1.73 = 06974) eGFR NON- AMER. (test 105 ML/MIN/1.73 code = 27113) CALC BUN/CREAT (test code = 27 RATIO [...] THYROX. BIND. CAPAC. (test code 1.0 = 85341) T4 (THYROXINE) (test code = 4.7 UG/DL 2819) CORRECTED T4 (FTI) (test code = 4.7 UG/DL 2820) TSH, THIRD GENERATION (test code 0.201 UIU/ML = 2821) THYROID II PROFILE (T3U, T4, T7, TSH)2019 00:00:00 Test Item Value Reference Range Interpretation Comments T-UPTAKE (test code = 2817) 33.1 % THYROX. BIND. CAPAC. (test code 1.0 = 29136) T4 (THYROXINE) (test code = 4.7 UG/DL 2819) CORRECTED T4 (FTI) (test code = 4.7 UG/DL 2820) TSH, THIRD GENERATION (test code 0.201 UIU/ML = 2821) HEMOGLOBIN [id number] 00:00:00 Test Item Value Reference Range Interpretation Comments HEMOGLOBIN A1c (test code = 95144) 6.7 % HEMOGLOBIN [id number] 00:00:00 Test Item Value Reference Range Interpretation Comments HEMOGLOBIN A1c (test code = 56844) 6.7 % LIPID [id number] 00:00:00 Test Item Value Reference Range Interpretation Comments CHOLESTEROL (test code = 2210) 267 MG/DL TRIGLYCERIDES (test code = 2232) 137 MG/DL HDL CHOLESTEROL (test code = 2220) 48 MG/DL CALC LDL CHOL (test code = 2237) 192 MG/DL RISK RATIO LDL/HDL (test code = 4.00 RATIO 2238) COMPREHENSIVE METABOLIC [id number] 00:00:00 Test Item Value Reference Range Interpretation Comments GLUCOSE (test code = 2217) 155 MG/DL BUN (test code = 2208) 14 MG/DL CREATININE (test code = 2214) 0.52 MG/DL eGFR AMER. (test code 122 ML/MIN/1.73 = 12730) eGFR NON- AMER. (test 105 ML/MIN/1.73 code = 49511) CALC BUN/CREAT (test code = 27 RATIO [...] THYROX. BIND. CAPAC. (test code 1.0 = 14815) T4 (THYROXINE) (test code = 4.7 UG/DL 2819) CORRECTED T4 (FTI) (test code = 4.7 UG/DL 2820) TSH, THIRD GENERATION (test code 0.201 UIU/ML = 2821) HEMOGLOBIN [id number] 00:00:00 Test Item Value Reference Range Interpretation Comments HEMOGLOBIN A1c (test code = 02924) 6.7 % HEMOGLOBIN [id number] 00:00:00 Test Item Value Reference Range Interpretation Comments HEMOGLOBIN A1c (test code = 91708) 6.7 % HEMOGLOBIN [id number] 00:00:00 Test Item Value Reference Range Interpretation Comments HEMOGLOBIN A1c (test code = 12345) 6.7 % LIPID [id number] 00:00:00 Test Item Value Reference Range Interpretation Comments CHOLESTEROL (test code = 2210) 267 MG/DL TRIGLYCERIDES (test code = 2232) 137 MG/DL HDL CHOLESTEROL (test code = 2220) 48 MG/DL CALC LDL CHOL (test code = 2237) 192 MG/DL RISK RATIO LDL/HDL (test code = 4.00 RATIO 2238) LIPID [id number] 00:00:00 Test Item Value Reference Range Interpretation Comments CHOLESTEROL (test code = 2210) 267 MG/DL TRIGLYCERIDES (test code = 2232) 137 MG/DL HDL CHOLESTEROL (test code = 2220) 48 MG/DL CALC LDL CHOL (test code = 2237) 192 MG/DL RISK RATIO LDL/HDL (test code = 4.00 RATIO 2238) COMPREHENSIVE METABOLIC [id number] 00:00:00 Test Item Value Reference Range Interpretation Comments GLUCOSE (test code = 2217) 155 MG/DL BUN (test code = 2208) 14 MG/DL CREATININE (test code = 2214) 0.52 MG/DL eGFR AMER. (test code 122 ML/MIN/1.73 = 27728) eGFR NON- AMER. (test 105 ML/MIN/1.73 code = 37525) CALC BUN/CREAT (test code = 27 RATIO [...] code = 2219) 27 U/L COMPREHENSIVE METABOLIC [id number] 00:00:00 Test Item Value Reference Range Interpretation Comments GLUCOSE (test code = 2217) 155 MG/DL BUN (test code = 2208) 14 MG/DL CREATININE (test code = 2214) 0.52 MG/DL eGFR AMER. (test code 122 ML/MIN/1.73 = 66556) eGFR NON- AMER. (test 105 ML/MIN/1.73 code = 03543) CALC BUN/CREAT (test code = 27 RATIO [...] THYROX. BIND. CAPAC. (test code 1.0 = 38124) T4 (THYROXINE) (test code = 4.7 UG/DL 2819) CORRECTED T4 (FTI) (test code = 4.7 UG/DL 2820) TSH, THIRD GENERATION (test code 0.201 UIU/ML = 2821) THYROID II PROFILE (T3U, T4, T7, TSH)2019 00:00:00 Test Item Value Reference Range Interpretation Comments T-UPTAKE (test code = 2817) 33.1 % THYROX. BIND. CAPAC. (test code 1.0 = 66642) T4 (THYROXINE) (test code = 4.7 UG/DL 2819) CORRECTED T4 (FTI) (test code = 4.7 UG/DL 2820) TSH, THIRD GENERATION (test code 0.201 UIU/ML = 2821) SARS-CoV-2 (COVID-19) by RT-PCR (HIGH RISK)2019-09-18 00:00:00 Test Item Value Reference Range Interpretation Comments SARS-CoV-2 INTERPRETATION (test NEGATIVE code = 96061) SOURCE (test code = 55721) NOT SPECIFIED SARS-CoV-2 (COVID-19) by RT-PCR (HIGH RISK)2019-09-18 00:00:00 Test Item Value Reference Range Interpretation Comments SARS-CoV-2 INTERPRETATION (test NEGATIVE code = 60006) SOURCE (test code = 27445) NOT SPECIFIED SARS-CoV-2 (COVID-19) by RT-PCR (HIGH RISK)2019-09-18 00:00:00 Test Item Value Reference Range Interpretation Comments SARS-CoV-2 INTERPRETATION (test NEGATIVE code = 56230) SOURCE (test code = 33758) NOT SPECIFIED SARS-CoV-2 (COVID-19) by RT-PCR (HIGH RISK)2019-09-18 00:00:00 Test Item Value Reference Range Interpretation Comments SARS-CoV-2 INTERPRETATION (test NEGATIVE code = 09196) SOURCE (test code = 60112) NOT SPECIFIED SARS-CoV-2 (COVID-19) by RT-PCR (HIGH RISK)2019-09-18 00:00:00 Test Item Value Reference Range Interpretation Comments SARS-CoV-2 INTERPRETATION (test NEGATIVE code = 50361) SOURCE (test code = 36261) NOT SPECIFIED SARS-CoV-2 (COVID-19) by RT-PCR (HIGH RISK)2019-09-18 00:00:00 Test Item Value Reference Range Interpretation Comments SARS-CoV-2 INTERPRETATION (test NEGATIVE code = 33604) SOURCE (test code = 39767) NOT SPECIFIED SARS-CoV-2 (COVID-19) by RT-PCR (HIGH RISK)2019-09-18 00:00:00 Test Item Value Reference Range Interpretation Comments SARS-CoV-2 INTERPRETATION (test NEGATIVE code = 12838) SOURCE (test code = 23778) NOT SPECIFIED [id number] 00:00:00 Test Item Value Reference Range Interpretation Comments TSH, THIRD GENERATION (test code 2.490 UIU/ML = 2821) [id number] 00:00:00 Test Item Value Reference Range Interpretation Comments TSH, THIRD GENERATION (test code 2.490 UIU/ML = 2821) [id number] 00:00:00 Test Item Value Reference Range Interpretation Comments TSH, THIRD GENERATION (test code 2.490 UIU/ML = 2821) HEMOGLOBIN [id number] 00:00:00 Test Item Value Reference Range Interpretation Comments HEMOGLOBIN A1c (test code = 60122) 6.4 % HEMOGLOBIN [id number] 00:00:00 Test Item Value Reference Range Interpretation Comments HEMOGLOBIN A1c (test code = 20012) 6.4 % HEMOGLOBIN [id number] 00:00:00 Test Item Value Reference Range Interpretation Comments HEMOGLOBIN A1c (test code = 79512) 6.4 % COMPREHENSIVE METABOLIC [id number] 00:00:00 Test Item Value Reference Range Interpretation Comments GLUCOSE (test code = 2217) 206 MG/DL BUN (test code = 2208) 23 MG/DL CREATININE (test code = 2214) 0.67 MG/DL eGFR AMER. (test code 112 ML/MIN/1.73 = 26674) eGFR NON- AMER. (test 97 ML/MIN/1.73 code = 33910) CALC BUN/CREAT (test code = 34 RATIO [...] code = 2219) 25 U/L COMPREHENSIVE METABOLIC [id number] 00:00:00 Test Item Value Reference Range Interpretation Comments GLUCOSE (test code = 2217) 206 MG/DL BUN (test code = 2208) 23 MG/DL CREATININE (test code = 2214) 0.67 MG/DL eGFR AMER. (test code 112 ML/MIN/1.73 = 77041) eGFR NON- AMER. (test 97 ML/MIN/1.73 code = 15493) CALC BUN/CREAT (test code = 34 RATIO [...] ALT (test code = 2219) 25 U/L [id number] 00:00:00 Test Item Value Reference Range Interpretation Comments TSH, THIRD GENERATION (test code 2.490 UIU/ML = 2821) [id number] 00:00:00 Test Item Value Reference Range Interpretation Comments TSH, THIRD GENERATION (test code 2.490 UIU/ML = 2821) [id number] 00:00:00 Test Item Value Reference Range Interpretation Comments TSH, THIRD GENERATION (test code 2.490 UIU/ML = 2821) HEMOGLOBIN [id number] 00:00:00 Test Item Value Reference Range Interpretation Comments HEMOGLOBIN A1c (test code = 84917) 6.4 % HEMOGLOBIN [id number] 00:00:00 Test Item Value Reference Range Interpretation Comments HEMOGLOBIN A1c (test code = 38117) 6.4 % HEMOGLOBIN [id number] 00:00:00 Test Item Value Reference Range Interpretation Comments HEMOGLOBIN A1c (test code = 40278) 6.4 % COMPREHENSIVE METABOLIC [id number] 00:00:00 Test Item Value Reference Range Interpretation Comments GLUCOSE (test code = 2217) 206 MG/DL BUN (test code = 2208) 23 MG/DL CREATININE (test code = 2214) 0.67 MG/DL eGFR AMER. (test code 112 ML/MIN/1.73 = 84562) eGFR NON- AMER. (test 97 ML/MIN/1.73 code = 14689) CALC BUN/CREAT (test code = 34 RATIO [...] code = 2219) 25 U/L COMPREHENSIVE METABOLIC [id number] 00:00:00 Test Item Value Reference Range Interpretation Comments GLUCOSE (test code = 2217) 206 MG/DL BUN (test code = 2208) 23 MG/DL CREATININE (test code = 2214) 0.67 MG/DL eGFR AMER. (test code 112 ML/MIN/1.73 = 45309) eGFR NON- AMER. (test 97 ML/MIN/1.73 code = 93547) CALC BUN/CREAT (test code = 34 RATIO [...] ALT (test code = 2219) 25 U/L [id number] 00:00:00 Test Item Value Reference Range Interpretation Comments TSH, THIRD GENERATION (test code 2.490 UIU/ML = 2821) [id number] 00:00:00 Test Item Value Reference Range Interpretation Comments TSH, THIRD GENERATION (test code 2.490 UIU/ML = 2821) HEMOGLOBIN [id number] 00:00:00 Test Item Value Reference Range Interpretation Comments HEMOGLOBIN A1c (test code = 49348) 6.4 % HEMOGLOBIN [id number] 00:00:00 Test Item Value Reference Range Interpretation Comments HEMOGLOBIN A1c (test code = 19040) 6.4 % COMPREHENSIVE METABOLIC [id number] 00:00:00 Test Item Value Reference Range Interpretation Comments GLUCOSE (test code = 2217) 206 MG/DL BUN (test code = 2208) 23 MG/DL CREATININE (test code = 2214) 0.67 MG/DL eGFR AMER. (test code 112 ML/MIN/1.73 = 24549) eGFR NON- AMER. (test 97 ML/MIN/1.73 code = 79707) CALC BUN/CREAT (test code = 34 RATIO [...] ALT (test code = 2219) 25 U/L [id number] 00:00:00 Test Item Value Reference Range Interpretation Comments TSH, THIRD GENERATION (test code 2.490 UIU/ML = 2821) [id number] 00:00:00 Test Item Value Reference Range Interpretation Comments TSH, THIRD GENERATION (test code 2.490 UIU/ML = 2821) [id number] 00:00:00 Test Item Value Reference Range Interpretation Comments TSH, THIRD GENERATION (test code 2.490 UIU/ML = 2821) HEMOGLOBIN [id number] 00:00:00 Test Item Value Reference Range Interpretation Comments HEMOGLOBIN A1c (test code = 94846) 6.4 % HEMOGLOBIN [id number] 00:00:00 Test Item Value Reference Range Interpretation Comments HEMOGLOBIN A1c (test code = 56381) 6.4 % HEMOGLOBIN [id number] 00:00:00 Test Item Value Reference Range Interpretation Comments HEMOGLOBIN A1c (test code = 10143) 6.4 % COMPREHENSIVE METABOLIC [id number] 00:00:00 Test Item Value Reference Range Interpretation Comments GLUCOSE (test code = 2217) 206 MG/DL BUN (test code = 2208) 23 MG/DL CREATININE (test code = 2214) 0.67 MG/DL eGFR AMER. (test code 112 ML/MIN/1.73 = 00440) eGFR NON- AMER. (test 97 ML/MIN/1.73 code = 70977) CALC BUN/CREAT (test code = 34 RATIO [...] code = 2219) 25 U/L COMPREHENSIVE METABOLIC [id number] 00:00:00 Test Item Value Reference Range Interpretation Comments GLUCOSE (test code = 2217) 206 MG/DL BUN (test code = 2208) 23 MG/DL CREATININE (test code = 2214) 0.67 MG/DL eGFR AMER. (test code 112 ML/MIN/1.73 = 84811) eGFR NON- AMER. (test 97 ML/MIN/1.73 code = 69558) CALC BUN/CREAT (test code = 34 RATIO [...] = 2219) 25 U/L VAGINAL PATHOGENS DNA [id number] 00:00:00 Test Item Value Reference Range Interpretation Comments MARK SPECIES (test code = 40164) NEGATIVE G. VAGINALIS (test code = 35866) NEGATIVE T. VAGINALIS (test code = 52478) NEGATIVE VAGINAL PATHOGENS DNA [id number] 00:00:00 Test Item Value Reference Range Interpretation Comments MARK SPECIES (test code = 58987) NEGATIVE G. VAGINALIS (test code = 98563) NEGATIVE T. VAGINALIS (test code = 13196) NEGATIVE VAGINAL PATHOGENS DNA [id number] 00:00:00 Test Item Value Reference Range Interpretation Comments MARK SPECIES (test code = 23081) NEGATIVE G. VAGINALIS (test code = 87698) NEGATIVE T. VAGINALIS (test code = 40071) NEGATIVE VAGINAL PATHOGENS DNA [id number] 00:00:00 Test Item Value Reference Range Interpretation Comments MARK SPECIES (test code = 21988) NEGATIVE G. VAGINALIS (test code = 07617) NEGATIVE T. VAGINALIS (test code = 96546) NEGATIVE VAGINAL PATHOGENS DNA [id number] 00:00:00 Test Item Value Reference Range Interpretation Comments MARK SPECIES (test code = 94760) NEGATIVE G. VAGINALIS (test code = 13729) NEGATIVE T. VAGINALIS (test code = 86916) NEGATIVE VAGINAL PATHOGENS DNA [id number] 00:00:00 Test Item Value Reference Range Interpretation Comments MARK SPECIES (test code = 37599) NEGATIVE G. VAGINALIS (test code = 89061) NEGATIVE T. VAGINALIS (test code = 03941) NEGATIVE VAGINAL PATHOGENS DNA [id number] 00:00:00 Test Item Value Reference Range Interpretation Comments MARK SPECIES (test code = 23747) NEGATIVE G. VAGINALIS (test code = 38412) NEGATIVE T. VAGINALIS (test code = 42602) NEGATIVE HEMOGLOBIN A1c [ADDED]2018-12-01 00:00:00 Test Item Value Reference Range Interpretation Comments HEMOGLOBIN A1c (test code = 01254) 6.7 % HEMOGLOBIN A1c [ADDED]2018-12-01 00:00:00 Test Item Value Reference Range Interpretation Comments HEMOGLOBIN A1c (test code = 54322) 6.7 % HEMOGLOBIN A1c [ADDED]2018-12-01 00:00:00 Test Item Value Reference Range Interpretation Comments HEMOGLOBIN A1c (test code = 30712) 6.7 % COMPREHENSIVE METABOLIC PANEL [ADDED]2018-12-01 00:00:00 Test Item Value Reference Range Interpretation Comments GLUCOSE (test code = 2217) 136 MG/DL BUN (test code = 2208) 15 MG/DL CREATININE (test code = 2214) 0.64 MG/DL eGFR AMER. (test code 115 ML/MIN/1.73 = 94268) eGFR NON- AMER. (test 99 ML/MIN/1.73 code = 14913) CALC BUN/CREAT (test code = 23 RATIO [...] eGFR AMER. (test code 115 ML/MIN/1.73 = 18760) eGFR NON- AMER. (test 99 ML/MIN/1.73 code = 36473) CALC BUN/CREAT (test code = 23 RATIO [...] Interpretation Comments HEMOGLOBIN A1c (test code = 88081) 6.7 % HEMOGLOBIN A1c [ADDED]2018-12-01 00:00:00 Test Item Value Reference Range Interpretation Comments HEMOGLOBIN A1c (test code = 16840) 6.7 % HEMOGLOBIN A1c [ADDED]2018-12-01 00:00:00 Test Item Value Reference Range Interpretation Comments HEMOGLOBIN A1c (test code = 15445) 6.7 % COMPREHENSIVE METABOLIC PANEL [ADDED]2018-12-01 00:00:00 Test Item Value Reference Range Interpretation Comments GLUCOSE (test code = 2217) 136 MG/DL BUN (test code = 2208) 15 MG/DL CREATININE (test code = 2214) 0.64 MG/DL eGFR AMER. (test code 115 ML/MIN/1.73 = 82273) eGFR NON- AMER. (test 99 ML/MIN/1.73 code = 60454) CALC BUN/CREAT (test code = 23 RATIO [...] eGFR AMER. (test code 115 ML/MIN/1.73 = 91936) eGFR NON- AMER. (test 99 ML/MIN/1.73 code = 78302) CALC BUN/CREAT (test code = 23 RATIO [...] Comments HEMOGLOBIN A1c (test code = 24966) 6.7 % HEMOGLOBIN A1c [ADDED]2018-12-01 00:00:00 Test Item Value Reference Range Interpretation Comments HEMOGLOBIN A1c (test code = 40346) 6.7 % COMPREHENSIVE METABOLIC PANEL [ADDED]2018-12-01 00:00:00 Test Item Value Reference Range Interpretation Comments GLUCOSE (test code = 2217) 136 MG/DL BUN (test code = 2208) 15 MG/DL CREATININE (test code = 2214) 0.64 MG/DL eGFR AMER. (test code 115 ML/MIN/1.73 = 09705) eGFR NON- AMER. (test 99 ML/MIN/1.73 code = 65012) CALC BUN/CREAT (test code = 23 RATIO [...] Interpretation Comments HEMOGLOBIN A1c (test code = 32393) 6.7 % HEMOGLOBIN A1c [ADDED]2018-12-01 00:00:00 Test Item Value Reference Range Interpretation Comments HEMOGLOBIN A1c (test code = 79784) 6.7 % HEMOGLOBIN A1c [ADDED]2018-12-01 00:00:00 Test Item Value Reference Range Interpretation Comments HEMOGLOBIN A1c (test code = 91157) 6.7 % COMPREHENSIVE METABOLIC PANEL [ADDED]2018-12-01 00:00:00 Test Item Value Reference Range Interpretation Comments GLUCOSE (test code = 2217) 136 MG/DL BUN (test code = 2208) 15 MG/DL CREATININE (test code = 2214) 0.64 MG/DL eGFR AMER. (test code 115 ML/MIN/1.73 = 13575) eGFR NON- AMER. (test 99 ML/MIN/1.73 code = 96961) CALC BUN/CREAT (test code = 23 RATIO [...] eGFR AMER. (test code 115 ML/MIN/1.73 = 49994) eGFR NON- AMER. (test 99 ML/MIN/1.73 code = 53176) CALC BUN/CREAT (test code = 23 RATIO [...] code 1.280 UIU/ML = 2821) CBC W/AUTO [id number] 00:00:00 Test Item Value Reference Range Interpretation [...] code = 1015) 346 K/UL CBC W/AUTO [id number] 00:00:00 Test Item Value Reference Range Interpretation [...] code = 1015) 346 K/UL CBC W/AUTO [id number] 00:00:00 Test Item Value Reference Range Interpretation [...] (test code = 1015) 346 K/UL HEMOGLOBIN [id number] 00:00:00 Test Item Value Reference Range Interpretation Comments HEMOGLOBIN A1c (test code = 51689) 5.9 % HEMOGLOBIN [id number] 00:00:00 Test Item Value Reference Range Interpretation Comments HEMOGLOBIN A1c (test code = 49255) 5.9 % HEMOGLOBIN [id number] 00:00:00 Test Item Value Reference Range Interpretation Comments HEMOGLOBIN A1c (test code = 22530) 5.9 % LIPID [id number] 00:00:00 Test Item Value Reference Range Interpretation Comments CHOLESTEROL (test code = 2210) 318 MG/DL TRIGLYCERIDES (test code = 2232) 263 MG/DL HDL CHOLESTEROL (test code = 2220) 51 MG/DL CALC LDL CHOL (test code = 2237) 214 MG/DL RISK RATIO LDL/HDL (test code = 4.20 RATIO 2238) LIPID [id number] 00:00:00 Test Item Value Reference Range Interpretation Comments CHOLESTEROL (test code = 2210) 318 MG/DL TRIGLYCERIDES (test code = 2232) 263 MG/DL HDL CHOLESTEROL (test code = 2220) 51 MG/DL CALC LDL CHOL (test code = 2237) 214 MG/DL RISK RATIO LDL/HDL (test code = 4.20 RATIO 2238) COMPREHENSIVE METABOLIC [id number] 00:00:00 Test Item Value Reference Range Interpretation Comments GLUCOSE (test code = 2217) 113 MG/DL BUN (test code = 2208) 18 MG/DL CREATININE (test code = 2214) 0.70 MG/DL eGFR AMER. (test code 111 ML/MIN/1.73 = 51678) eGFR NON- AMER. (test 96 ML/MIN/1.73 code = 55876) CALC BUN/CREAT (test code = 26 RATIO [...] code = 2219) 31 U/L COMPREHENSIVE METABOLIC [id number] 00:00:00 Test Item Value Reference Range Interpretation Comments GLUCOSE (test code = 2217) 113 MG/DL BUN (test code = 2208) 18 MG/DL CREATININE (test code = 2214) 0.70 MG/DL eGFR AMER. (test code 111 ML/MIN/1.73 = 01302) eGFR NON- AMER. (test 96 ML/MIN/1.73 code = 95103) CALC BUN/CREAT (test code = 26 RATIO [...] ALT (test code = 2219) 31 U/L [id number] 00:00:00 Test Item Value Reference Range Interpretation Comments TSH, THIRD GENERATION (test code 2.520 UIU/ML = 2821) [id number] 00:00:00 Test Item Value Reference Range Interpretation Comments TSH, THIRD GENERATION (test code 2.520 UIU/ML = 2821) [id number] 00:00:00 Test Item Value Reference Range Interpretation Comments TSH, THIRD GENERATION (test code 2.520 UIU/ML = 2821) CBC W/AUTO [id number] 00:00:00 Test Item Value Reference Range Interpretation [...] code = 1015) 346 K/UL CBC W/AUTO [id number] 00:00:00 Test Item Value Reference Range Interpretation [...] code = 1015) 346 K/UL CBC W/AUTO [id number] 00:00:00 Test Item Value Reference Range Interpretation [...] (test code = 1015) 346 K/UL HEMOGLOBIN [id number] 00:00:00 Test Item Value Reference Range Interpretation Comments HEMOGLOBIN A1c (test code = 09177) 5.9 % HEMOGLOBIN [id number] 00:00:00 Test Item Value Reference Range Interpretation Comments HEMOGLOBIN A1c (test code = 94717) 5.9 % HEMOGLOBIN [id number] 00:00:00 Test Item Value Reference Range Interpretation Comments HEMOGLOBIN A1c (test code = 25962) 5.9 % LIPID [id number] 00:00:00 Test Item Value Reference Range Interpretation Comments CHOLESTEROL (test code = 2210) 318 MG/DL TRIGLYCERIDES (test code = 2232) 263 MG/DL HDL CHOLESTEROL (test code = 2220) 51 MG/DL CALC LDL CHOL (test code = 2237) 214 MG/DL RISK RATIO LDL/HDL (test code = 4.20 RATIO 2238) LIPID [id number] 00:00:00 Test Item Value Reference Range Interpretation Comments CHOLESTEROL (test code = 2210) 318 MG/DL TRIGLYCERIDES (test code = 2232) 263 MG/DL HDL CHOLESTEROL (test code = 2220) 51 MG/DL CALC LDL CHOL (test code = 2237) 214 MG/DL RISK RATIO LDL/HDL (test code = 4.20 RATIO 2238) COMPREHENSIVE METABOLIC [id number] 00:00:00 Test Item Value Reference Range Interpretation Comments GLUCOSE (test code = 2217) 113 MG/DL BUN (test code = 2208) 18 MG/DL CREATININE (test code = 2214) 0.70 MG/DL eGFR AMER. (test code 111 ML/MIN/1.73 = 94373) eGFR NON- AMER. (test 96 ML/MIN/1.73 code = 28786) CALC BUN/CREAT (test code = 26 RATIO [...] code = 2219) 31 U/L COMPREHENSIVE METABOLIC [id number] 00:00:00 Test Item Value Reference Range Interpretation Comments GLUCOSE (test code = 2217) 113 MG/DL BUN (test code = 2208) 18 MG/DL CREATININE (test code = 2214) 0.70 MG/DL eGFR AMER. (test code 111 ML/MIN/1.73 = 72901) eGFR NON- AMER. (test 96 ML/MIN/1.73 code = 35880) CALC BUN/CREAT (test code = 26 RATIO [...] ALT (test code = 2219) 31 U/L [id number] 00:00:00 Test Item Value Reference Range Interpretation Comments TSH, THIRD GENERATION (test code 2.520 UIU/ML = 2821) [id number] 00:00:00 Test Item Value Reference Range Interpretation Comments TSH, THIRD GENERATION (test code 2.520 UIU/ML = 2821) [id number] 00:00:00 Test Item Value Reference Range Interpretation Comments TSH, THIRD GENERATION (test code 2.520 UIU/ML = 2821) CBC W/AUTO [id number] 00:00:00 Test Item Value Reference Range Interpretation [...] code = 1015) 346 K/UL CBC W/AUTO [id number] 00:00:00 Test Item Value Reference Range Interpretation [...] (test code = 1015) 346 K/UL HEMOGLOBIN [id number] 00:00:00 Test Item Value Reference Range Interpretation Comments HEMOGLOBIN A1c (test code = 42956) 5.9 % HEMOGLOBIN [id number] 00:00:00 Test Item Value Reference Range Interpretation Comments HEMOGLOBIN A1c (test code = 66185) 5.9 % LIPID [id number] 00:00:00 Test Item Value Reference Range Interpretation Comments CHOLESTEROL (test code = 2210) 318 MG/DL TRIGLYCERIDES (test code = 2232) 263 MG/DL HDL CHOLESTEROL (test code = 2220) 51 MG/DL CALC LDL CHOL (test code = 2237) 214 MG/DL RISK RATIO LDL/HDL (test code = 4.20 RATIO 2238) COMPREHENSIVE METABOLIC [id number] 00:00:00 Test Item Value Reference Range Interpretation Comments GLUCOSE (test code = 2217) 113 MG/DL BUN (test code = 2208) 18 MG/DL CREATININE (test code = 2214) 0.70 MG/DL eGFR AMER. (test code 111 ML/MIN/1.73 = 71402) eGFR NON- AMER. (test 96 ML/MIN/1.73 code = 59021) CALC BUN/CREAT (test code = 26 RATIO [...] ALT (test code = 2219) 31 U/L [id number] 00:00:00 Test Item Value Reference Range Interpretation Comments TSH, THIRD GENERATION (test code 2.520 UIU/ML = 2821) [id number] 00:00:00 Test Item Value Reference Range Interpretation Comments TSH, THIRD GENERATION (test code 2.520 UIU/ML = 2821) CBC W/AUTO [id number] 00:00:00 Test Item Value Reference Range Interpretation [...] code = 1015) 346 K/UL CBC W/AUTO [id number] 00:00:00 Test Item Value Reference Range Interpretation [...] code = 1015) 346 K/UL CBC W/AUTO [id number] 00:00:00 Test Item Value Reference Range Interpretation [...] (test code = 1015) 346 K/UL HEMOGLOBIN [id number] 00:00:00 Test Item Value Reference Range Interpretation Comments HEMOGLOBIN A1c (test code = 68237) 5.9 % HEMOGLOBIN [id number] 00:00:00 Test Item Value Reference Range Interpretation Comments HEMOGLOBIN A1c (test code = 74895) 5.9 % HEMOGLOBIN [id number] 00:00:00 Test Item Value Reference Range Interpretation Comments HEMOGLOBIN A1c (test code = 42747) 5.9 % LIPID [id number] 00:00:00 Test Item Value Reference Range Interpretation Comments CHOLESTEROL (test code = 2210) 318 MG/DL TRIGLYCERIDES (test code = 2232) 263 MG/DL HDL CHOLESTEROL (test code = 2220) 51 MG/DL CALC LDL CHOL (test code = 2237) 214 MG/DL RISK RATIO LDL/HDL (test code = 4.20 RATIO 2238) LIPID [id number] 00:00:00 Test Item Value Reference Range Interpretation Comments CHOLESTEROL (test code = 2210) 318 MG/DL TRIGLYCERIDES (test code = 2232) 263 MG/DL HDL CHOLESTEROL (test code = 2220) 51 MG/DL CALC LDL CHOL (test code = 2237) 214 MG/DL RISK RATIO LDL/HDL (test code = 4.20 RATIO 2238) COMPREHENSIVE METABOLIC [id number] 00:00:00 Test Item Value Reference Range Interpretation Comments GLUCOSE (test code = 2217) 113 MG/DL BUN (test code = 2208) 18 MG/DL CREATININE (test code = 2214) 0.70 MG/DL eGFR AMER. (test code 111 ML/MIN/1.73 = 03198) eGFR NON- AMER. (test 96 ML/MIN/1.73 code = 06028) CALC BUN/CREAT (test code = 26 RATIO [...] code = 2219) 31 U/L COMPREHENSIVE METABOLIC [id number] 00:00:00 Test Item Value Reference Range Interpretation Comments GLUCOSE (test code = 2217) 113 MG/DL BUN (test code = 2208) 18 MG/DL CREATININE (test code = 2214) 0.70 MG/DL eGFR AMER. (test code 111 ML/MIN/1.73 = 04123) eGFR NON- AMER. (test 96 ML/MIN/1.73 code = 53344) CALC BUN/CREAT (test code = 26 RATIO [...] ALT (test code = 2219) 31 U/L [id number] 00:00:00 Test Item Value Reference Range Interpretation Comments TSH, THIRD GENERATION (test code 2.520 UIU/ML = 2821) [id number] 00:00:00 Test Item Value Reference Range Interpretation Comments TSH, THIRD GENERATION (test code 2.520 UIU/ML = 2821) [id number] 00:00:00 Test Item Value Reference Range Interpretation Comments TSH, THIRD GENERATION (test code 2.520 UIU/ML = 2821) CULTURE, [id number] 00:00:00 Test Item Value Reference Range Interpretation Comments CULTURE, URINE (test SPECIMEN NUMBER: code = 37492) [id number] CULTURE, [id number] 00:00:00 Test Item Value Reference Range Interpretation Comments CULTURE, URINE (test SPECIMEN NUMBER: code = 75431) [id number] CULTURE, [id number] 00:00:00 Test Item Value Reference Range Interpretation Comments CULTURE, URINE (test SPECIMEN NUMBER: code = 63048) [id number] CULTURE, [id number] 00:00:00 Test Item Value Reference Range Interpretation Comments CULTURE, URINE (test SPECIMEN NUMBER: code = 58314) [id number] CULTURE, [id number] 00:00:00 Test Item Value Reference Range Interpretation Comments CULTURE, URINE (test SPECIMEN NUMBER: code = 79282) [id number] CULTURE, [id number] 00:00:00 Test Item Value Reference Range Interpretation Comments CULTURE, URINE (test SPECIMEN NUMBER: code = 13010) [id number] CULTURE, [id number] 00:00:00 Test Item Value Reference Range Interpretation Comments CULTURE, URINE (test SPECIMEN NUMBER: code = 31647) [id number] CULTURE, [id number] 00:00:00 Test Item Value Reference Range Interpretation Comments CULTURE, URINE (test SPECIMEN NUMBER: code = 51119) [id number] CULTURE, [id number] 00:00:00 Test Item Value Reference Range Interpretation Comments CULTURE, URINE (test SPECIMEN NUMBER: code = 87707) [id number] CULTURE, [id number] 00:00:00 Test Item Value Reference Range Interpretation Comments CULTURE, URINE (test SPECIMEN NUMBER: code = 14419) [id number] CULTURE, [id number] 00:00:00 Test Item Value Reference Range Interpretation Comments CULTURE, URINE (test SPECIMEN NUMBER: code = 31973) [id number] CULTURE, [id number] 00:00:00 Test Item Value Reference Range Interpretation Comments CULTURE, URINE (test SPECIMEN NUMBER: code = 18477) [id number] CULTURE, [id number] 00:00:00 Test Item Value Reference Range Interpretation Comments CULTURE, URINE (test SPECIMEN NUMBER: code = 47955) [id number] CULTURE, [id number] 00:00:00 Test Item Value Reference Range Interpretation Comments CULTURE, URINE (test SPECIMEN NUMBER: code = 97603) [id number] BASIC METABOLIC [id number] 00:00:00 Test Item Value Reference Range Interpretation Comments GLUCOSE (test code = 2217) 135 MG/DL BUN (test code = 2208) 25 MG/DL CREATININE (test code = 2214) 0.76 MG/DL eGFR AMER. (test code 101 ML/MIN/1.73 = 39185) eGFR NON- AMER. (test 87 ML/MIN/1.73 code = 58345) SODIUM (test code = 2231) 139 MEQ/L POTASSIUM (test code = 2228) 4.7 MEQ/L CHLORIDE (test code = 2215) 99 MEQ/L CARBON DIOXIDE (test code = 26 MEQ/L 2206) CALCIUM (test code = 2209) 9.4 MG/DL BASIC METABOLIC [id number] 00:00:00 Test Item Value Reference Range Interpretation Comments GLUCOSE (test code = 2217) 135 MG/DL BUN (test code = 2208) 25 MG/DL CREATININE (test code = 2214) 0.76 MG/DL eGFR AMER. (test code 101 ML/MIN/1.73 = 48172) eGFR NON- AMER. (test 87 ML/MIN/1.73 code = 37302) SODIUM (test code = 2231) 139 MEQ/L POTASSIUM (test code = 2228) 4.7 MEQ/L CHLORIDE (test code = 2215) 99 MEQ/L CARBON DIOXIDE (test code = 26 MEQ/L 2206) CALCIUM (test code = 2209) 9.4 MG/DL LIPID [id number] 00:00:00 Test Item Value Reference Range Interpretation Comments CHOLESTEROL (test code = 2210) 262 MG/DL TRIGLYCERIDES (test code = 2232) 300 MG/DL HDL CHOLESTEROL (test code = 2220) 36 MG/DL CALC LDL CHOL (test code = 2237) 166 MG/DL RISK RATIO LDL/HDL (test code = 4.61 RATIO 2238) LIPID [id number] 00:00:00 Test Item Value Reference Range Interpretation Comments CHOLESTEROL (test code = 2210) 262 MG/DL TRIGLYCERIDES (test code = 2232) 300 MG/DL HDL CHOLESTEROL (test code = 2220) 36 MG/DL CALC LDL CHOL (test code = 2237) 166 MG/DL RISK RATIO LDL/HDL (test code = 4.61 RATIO 2238) HEMOGLOBIN [id number] 00:00:00 Test Item Value Reference Range Interpretation Comments HEMOGLOBIN A1c (test code = 41484) 6.2 % HEMOGLOBIN [id number] 00:00:00 Test Item Value Reference Range Interpretation Comments HEMOGLOBIN A1c (test code = 05704) 6.2 % HEMOGLOBIN [id number] 00:00:00 Test Item Value Reference Range Interpretation Comments HEMOGLOBIN A1c (test code = 13945) 6.2 % [id number] 00:00:00 Test Item Value Reference Range Interpretation Comments TSH, THIRD GENERATION (test code 0.988 UIU/ML = 2821) [id number] 00:00:00 Test Item Value Reference Range Interpretation Comments TSH, THIRD GENERATION (test code 0.988 UIU/ML = 2821) [id number] 00:00:00 Test Item Value Reference Range Interpretation Comments TSH, THIRD GENERATION (test code 0.988 UIU/ML = 2821) BASIC METABOLIC [id number] 00:00:00 Test Item Value Reference Range Interpretation Comments GLUCOSE (test code = 2217) 135 MG/DL BUN (test code = 2208) 25 MG/DL CREATININE (test code = 2214) 0.76 MG/DL eGFR AMER. (test code 101 ML/MIN/1.73 = 68647) eGFR NON- AMER. (test 87 ML/MIN/1.73 code = 57076) SODIUM (test code = 2231) 139 MEQ/L POTASSIUM (test code = 2228) 4.7 MEQ/L CHLORIDE (test code = 2215) 99 MEQ/L CARBON DIOXIDE (test code = 26 MEQ/L 2206) CALCIUM (test code = 2209) 9.4 MG/DL BASIC METABOLIC [id number] 00:00:00 Test Item Value Reference Range Interpretation Comments GLUCOSE (test code = 2217) 135 MG/DL BUN (test code = 2208) 25 MG/DL CREATININE (test code = 2214) 0.76 MG/DL eGFR AMER. (test code 101 ML/MIN/1.73 = 17201) eGFR NON- AMER. (test 87 ML/MIN/1.73 code = 43404) SODIUM (test code = 2231) 139 MEQ/L POTASSIUM (test code = 2228) 4.7 MEQ/L CHLORIDE (test code = 2215) 99 MEQ/L CARBON DIOXIDE (test code = 26 MEQ/L 2206) CALCIUM (test code = 2209) 9.4 MG/DL LIPID [id number] 00:00:00 Test Item Value Reference Range Interpretation Comments CHOLESTEROL (test code = 2210) 262 MG/DL TRIGLYCERIDES (test code = 2232) 300 MG/DL HDL CHOLESTEROL (test code = 2220) 36 MG/DL CALC LDL CHOL (test code = 2237) 166 MG/DL RISK RATIO LDL/HDL (test code = 4.61 RATIO 2238) LIPID [id number] 00:00:00 Test Item Value Reference Range Interpretation Comments CHOLESTEROL (test code = 2210) 262 MG/DL TRIGLYCERIDES (test code = 2232) 300 MG/DL HDL CHOLESTEROL (test code = 2220) 36 MG/DL CALC LDL CHOL (test code = 2237) 166 MG/DL RISK RATIO LDL/HDL (test code = 4.61 RATIO 2238) HEMOGLOBIN [id number] 00:00:00 Test Item Value Reference Range Interpretation Comments HEMOGLOBIN A1c (test code = 72598) 6.2 % HEMOGLOBIN [id number] 00:00:00 Test Item Value Reference Range Interpretation Comments HEMOGLOBIN A1c (test code = 72417) 6.2 % HEMOGLOBIN [id number] 00:00:00 Test Item Value Reference Range Interpretation Comments HEMOGLOBIN A1c (test code = 14335) 6.2 % [id number] 00:00:00 Test Item Value Reference Range Interpretation Comments TSH, THIRD GENERATION (test code 0.988 UIU/ML = 2821) [id number] 00:00:00 Test Item Value Reference Range Interpretation Comments TSH, THIRD GENERATION (test code 0.988 UIU/ML = 2821) [id number] 00:00:00 Test Item Value Reference Range Interpretation Comments TSH, THIRD GENERATION (test code 0.988 UIU/ML = 2821) BASIC METABOLIC [id number] 00:00:00 Test Item Value Reference Range Interpretation Comments GLUCOSE (test code = 2217) 135 MG/DL BUN (test code = 2208) 25 MG/DL CREATININE (test code = 2214) 0.76 MG/DL eGFR AMER. (test code 101 ML/MIN/1.73 = 55188) eGFR NON- AMER. (test 87 ML/MIN/1.73 code = 21338) SODIUM (test code = 2231) 139 MEQ/L POTASSIUM (test code = 2228) 4.7 MEQ/L CHLORIDE (test code = 2215) 99 MEQ/L CARBON DIOXIDE (test code = 26 MEQ/L 2206) CALCIUM (test code = 2209) 9.4 MG/DL LIPID [id number] 00:00:00 Test Item Value Reference Range Interpretation Comments CHOLESTEROL (test code = 2210) 262 MG/DL TRIGLYCERIDES (test code = 2232) 300 MG/DL HDL CHOLESTEROL (test code = 2220) 36 MG/DL CALC LDL CHOL (test code = 2237) 166 MG/DL RISK RATIO LDL/HDL (test code = 4.61 RATIO 2238) HEMOGLOBIN [id number] 00:00:00 Test Item Value Reference Range Interpretation Comments HEMOGLOBIN A1c (test code = 98632) 6.2 % HEMOGLOBIN [id number] 00:00:00 Test Item Value Reference Range Interpretation Comments HEMOGLOBIN A1c (test code = 72834) 6.2 % [id number] 00:00:00 Test Item Value Reference Range Interpretation Comments TSH, THIRD GENERATION (test code 0.988 UIU/ML = 2821) [id number] 00:00:00 Test Item Value Reference Range Interpretation Comments TSH, THIRD GENERATION (test code 0.988 UIU/ML = 2821) BASIC METABOLIC [id number] 00:00:00 Test Item Value Reference Range Interpretation Comments GLUCOSE (test code = 2217) 135 MG/DL BUN (test code = 2208) 25 MG/DL CREATININE (test code = 2214) 0.76 MG/DL eGFR AMER. (test code 101 ML/MIN/1.73 = 03045) eGFR NON- AMER. (test 87 ML/MIN/1.73 code = 49112) SODIUM (test code = 2231) 139 MEQ/L POTASSIUM (test code = 2228) 4.7 MEQ/L CHLORIDE (test code = 2215) 99 MEQ/L CARBON DIOXIDE (test code = 26 MEQ/L 2206) CALCIUM (test code = 2209) 9.4 MG/DL BASIC METABOLIC [id number] 00:00:00 Test Item Value Reference Range Interpretation Comments GLUCOSE (test code = 2217) 135 MG/DL BUN (test code = 2208) 25 MG/DL CREATININE (test code = 2214) 0.76 MG/DL eGFR AMER. (test code 101 ML/MIN/1.73 = 86651) eGFR NON- AMER. (test 87 ML/MIN/1.73 code = 88887) SODIUM (test code = 2231) 139 MEQ/L POTASSIUM (test code = 2228) 4.7 MEQ/L CHLORIDE (test code = 2215) 99 MEQ/L CARBON DIOXIDE (test code = 26 MEQ/L 2206) CALCIUM (test code = 2209) 9.4 MG/DL LIPID [id number] 00:00:00 Test Item Value Reference Range Interpretation Comments CHOLESTEROL (test code = 2210) 262 MG/DL TRIGLYCERIDES (test code = 2232) 300 MG/DL HDL CHOLESTEROL (test code = 2220) 36 MG/DL CALC LDL CHOL (test code = 2237) 166 MG/DL RISK RATIO LDL/HDL (test code = 4.61 RATIO 2238) LIPID [id number] 00:00:00 Test Item Value Reference Range Interpretation Comments CHOLESTEROL (test code = 2210) 262 MG/DL TRIGLYCERIDES (test code = 2232) 300 MG/DL HDL CHOLESTEROL (test code = 2220) 36 MG/DL CALC LDL CHOL (test code = 2237) 166 MG/DL RISK RATIO LDL/HDL (test code = 4.61 RATIO 2238) HEMOGLOBIN [id number] 00:00:00 Test Item Value Reference Range Interpretation Comments HEMOGLOBIN A1c (test code = 93815) 6.2 % HEMOGLOBIN [id number] 00:00:00 Test Item Value Reference Range Interpretation Comments HEMOGLOBIN A1c (test code = 44834) 6.2 % HEMOGLOBIN [id number] 00:00:00 Test Item Value Reference Range Interpretation Comments HEMOGLOBIN A1c (test code = 82322) 6.2 % [id number] 00:00:00 Test Item Value Reference Range Interpretation Comments TSH, THIRD GENERATION (test code 0.988 UIU/ML = 2821) [id number] 00:00:00 Test Item Value Reference Range Interpretation Comments TSH, THIRD GENERATION (test code 0.988 UIU/ML = 2821) [id number] 00:00:00 Test Item Value Reference Range Interpretation Comments TSH, THIRD GENERATION (test code 0.988 UIU/ML = 2821) COMPREHENSIVE METABOLIC [id number] 00:00:00 Test Item Value Reference Range Interpretation Comments GLUCOSE (test code = 2217) 109 MG/DL BUN (test code = 2208) 25 MG/DL CREATININE (test code = 2214) 0.78 MG/DL eGFR AMER. (test code 98 ML/MIN/1.73 = 15328) eGFR NON- AMER. (test 84 ML/MIN/1.73 code = 19284) CALC BUN/CREAT (test code = 32 RATIO [...] code = 2219) 25 U/L COMPREHENSIVE METABOLIC [id number] 00:00:00 Test Item Value Reference Range Interpretation Comments GLUCOSE (test code = 2217) 109 MG/DL BUN (test code = 2208) 25 MG/DL CREATININE (test code = 2214) 0.78 MG/DL eGFR AMER. (test code 98 ML/MIN/1.73 = 71243) eGFR NON- AMER. (test 84 ML/MIN/1.73 code = 18500) CALC BUN/CREAT (test code = 32 RATIO [...] (test code = 2219) 25 U/L LIPID [id number] 00:00:00 Test Item Value Reference Range Interpretation Comments CHOLESTEROL (test code = 2210) 295 MG/DL TRIGLYCERIDES (test code = 2232) 218 MG/DL HDL CHOLESTEROL (test code = 2220) 46 MG/DL CALC LDL CHOL (test code = 2237) 205 MG/DL RISK RATIO LDL/HDL (test code = 4.47 RATIO 2238) LIPID [id number] 00:00:00 Test Item Value Reference Range Interpretation Comments CHOLESTEROL (test code = 2210) 295 MG/DL TRIGLYCERIDES (test code = 2232) 218 MG/DL HDL CHOLESTEROL (test code = 2220) 46 MG/DL CALC LDL CHOL (test code = 2237) 205 MG/DL RISK RATIO LDL/HDL (test code = 4.47 RATIO 2238) HEMOGLOBIN [id number] 00:00:00 Test Item Value Reference Range Interpretation Comments HEMOGLOBIN A1c (test code = 67857) 7.0 % HEMOGLOBIN [id number] 00:00:00 Test Item Value Reference Range Interpretation Comments HEMOGLOBIN A1c (test code = 11773) 7.0 % HEMOGLOBIN [id number] 00:00:00 Test Item Value Reference Range Interpretation Comments HEMOGLOBIN A1c (test code = 77824) 7.0 % [id number] 00:00:00 Test Item Value Reference Range Interpretation Comments TSH, THIRD GENERATION (test code 0.565 UIU/ML = 2821) [id number] 00:00:00 Test Item Value Reference Range Interpretation Comments TSH, THIRD GENERATION (test code 0.565 UIU/ML = 2821) [id number] 00:00:00 Test Item Value Reference Range Interpretation Comments TSH, THIRD GENERATION (test code 0.565 UIU/ML = 2821) COMPREHENSIVE METABOLIC [id number] 00:00:00 Test Item Value Reference Range Interpretation Comments GLUCOSE (test code = 2217) 109 MG/DL BUN (test code = 2208) 25 MG/DL CREATININE (test code = 2214) 0.78 MG/DL eGFR AMER. (test code 98 ML/MIN/1.73 = 64430) eGFR NON- AMER. (test 84 ML/MIN/1.73 code = 71251) CALC BUN/CREAT (test code = 32 RATIO [...] code = 2219) 25 U/L COMPREHENSIVE METABOLIC [id number] 00:00:00 Test Item Value Reference Range Interpretation Comments GLUCOSE (test code = 2217) 109 MG/DL BUN (test code = 2208) 25 MG/DL CREATININE (test code = 2214) 0.78 MG/DL eGFR AMER. (test code 98 ML/MIN/1.73 = 06968) eGFR NON- AMER. (test 84 ML/MIN/1.73 code = 99430) CALC BUN/CREAT (test code = 32 RATIO [...] (test code = 2219) 25 U/L LIPID [id number] 00:00:00 Test Item Value Reference Range Interpretation Comments CHOLESTEROL (test code = 2210) 295 MG/DL TRIGLYCERIDES (test code = 2232) 218 MG/DL HDL CHOLESTEROL (test code = 2220) 46 MG/DL CALC LDL CHOL (test code = 2237) 205 MG/DL RISK RATIO LDL/HDL (test code = 4.47 RATIO 2238) LIPID [id number] 00:00:00 Test Item Value Reference Range Interpretation Comments CHOLESTEROL (test code = 2210) 295 MG/DL TRIGLYCERIDES (test code = 2232) 218 MG/DL HDL CHOLESTEROL (test code = 2220) 46 MG/DL CALC LDL CHOL (test code = 2237) 205 MG/DL RISK RATIO LDL/HDL (test code = 4.47 RATIO 2238) HEMOGLOBIN [id number] 00:00:00 Test Item Value Reference Range Interpretation Comments HEMOGLOBIN A1c (test code = 15569) 7.0 % HEMOGLOBIN [id number] 00:00:00 Test Item Value Reference Range Interpretation Comments HEMOGLOBIN A1c (test code = 12287) 7.0 % HEMOGLOBIN [id number] 00:00:00 Test Item Value Reference Range Interpretation Comments HEMOGLOBIN A1c (test code = 32798) 7.0 % [id number] 00:00:00 Test Item Value Reference Range Interpretation Comments TSH, THIRD GENERATION (test code 0.565 UIU/ML = 2821) [id number] 00:00:00 Test Item Value Reference Range Interpretation Comments TSH, THIRD GENERATION (test code 0.565 UIU/ML = 2821) [id number] 00:00:00 Test Item Value Reference Range Interpretation Comments TSH, THIRD GENERATION (test code 0.565 UIU/ML = 2821) COMPREHENSIVE METABOLIC [id number] 00:00:00 Test Item Value Reference Range Interpretation Comments GLUCOSE (test code = 2217) 109 MG/DL BUN (test code = 2208) 25 MG/DL CREATININE (test code = 2214) 0.78 MG/DL eGFR AMER. (test code 98 ML/MIN/1.73 = 11708) eGFR NON- AMER. (test 84 ML/MIN/1.73 code = 20599) CALC BUN/CREAT (test code = 32 RATIO [...] (test code = 2219) 25 U/L LIPID [id number] 00:00:00 Test Item Value Reference Range Interpretation Comments CHOLESTEROL (test code = 2210) 295 MG/DL TRIGLYCERIDES (test code = 2232) 218 MG/DL HDL CHOLESTEROL (test code = 2220) 46 MG/DL CALC LDL CHOL (test code = 2237) 205 MG/DL RISK RATIO LDL/HDL (test code = 4.47 RATIO 2238) HEMOGLOBIN [id number] 00:00:00 Test Item Value Reference Range Interpretation Comments HEMOGLOBIN A1c (test code = 05107) 7.0 % HEMOGLOBIN [id number] 00:00:00 Test Item Value Reference Range Interpretation Comments HEMOGLOBIN A1c (test code = 52476) 7.0 % [id number] 00:00:00 Test Item Value Reference Range Interpretation Comments TSH, THIRD GENERATION (test code 0.565 UIU/ML = 2821) [id number] 00:00:00 Test Item Value Reference Range Interpretation Comments TSH, THIRD GENERATION (test code 0.565 UIU/ML = 2821) COMPREHENSIVE METABOLIC [id number] 00:00:00 Test Item Value Reference Range Interpretation Comments GLUCOSE (test code = 2217) 109 MG/DL BUN (test code = 2208) 25 MG/DL CREATININE (test code = 2214) 0.78 MG/DL eGFR AMER. (test code 98 ML/MIN/1.73 = 95506) eGFR NON- AMER. (test 84 ML/MIN/1.73 code = 61181) CALC BUN/CREAT (test code = 32 RATIO [...] code = 2219) 25 U/L COMPREHENSIVE METABOLIC [id number] 00:00:00 Test Item Value Reference Range Interpretation Comments GLUCOSE (test code = 2217) 109 MG/DL BUN (test code = 2208) 25 MG/DL CREATININE (test code = 2214) 0.78 MG/DL eGFR AMER. (test code 98 ML/MIN/1.73 = 52906) eGFR NON- AMER. (test 84 ML/MIN/1.73 code = 62869) CALC BUN/CREAT (test code = 32 RATIO [...] (test code = 2219) 25 U/L LIPID [id number] 00:00:00 Test Item Value Reference Range Interpretation Comments CHOLESTEROL (test code = 2210) 295 MG/DL TRIGLYCERIDES (test code = 2232) 218 MG/DL HDL CHOLESTEROL (test code = 2220) 46 MG/DL CALC LDL CHOL (test code = 2237) 205 MG/DL RISK RATIO LDL/HDL (test code = 4.47 RATIO 2238) LIPID [id number] 00:00:00 Test Item Value Reference Range Interpretation Comments CHOLESTEROL (test code = 2210) 295 MG/DL TRIGLYCERIDES (test code = 2232) 218 MG/DL HDL CHOLESTEROL (test code = 2220) 46 MG/DL CALC LDL CHOL (test code = 2237) 205 MG/DL RISK RATIO LDL/HDL (test code = 4.47 RATIO 2238) HEMOGLOBIN [id number] 00:00:00 Test Item Value Reference Range Interpretation Comments HEMOGLOBIN A1c (test code = 18538) 7.0 % HEMOGLOBIN [id number] 00:00:00 Test Item Value Reference Range Interpretation Comments HEMOGLOBIN A1c (test code = 65678) 7.0 % HEMOGLOBIN [id number] 00:00:00 Test Item Value Reference Range Interpretation Comments HEMOGLOBIN A1c (test code = 94196) 7.0 % [id number] 00:00:00 Test Item Value Reference Range Interpretation Comments TSH, THIRD GENERATION (test code 0.565 UIU/ML = 2821) [id number] 00:00:00 Test Item Value Reference Range Interpretation Comments TSH, THIRD GENERATION (test code 0.565 UIU/ML = 2821) [id number] 00:00:00 Test Item Value Reference Range Interpretation Comments TSH, THIRD GENERATION (test code 0.565 UIU/ML = 2821) [id number] 00:00:00 Test Item Value Reference Range Interpretation Comments TSH, THIRD GENERATION (test code 0.379 UIU/ML = 2821) [id number] 00:00:00 Test Item Value Reference Range Interpretation Comments TSH, THIRD GENERATION (test code 0.379 UIU/ML = 2821) [id number] 00:00:00 Test Item Value Reference Range Interpretation Comments TSH, THIRD GENERATION (test code 0.379 UIU/ML = 2821) [id number] 00:00:00 Test Item Value Reference Range Interpretation Comments TSH, THIRD GENERATION (test code 0.379 UIU/ML = 2821) [id number] 00:00:00 Test Item Value Reference Range Interpretation Comments TSH, THIRD GENERATION (test code 0.379 UIU/ML = 2821) [id number] 00:00:00 Test Item Value Reference Range Interpretation Comments TSH, THIRD GENERATION (test code 0.379 UIU/ML = 2821) [id number] 00:00:00 Test Item Value Reference Range Interpretation Comments TSH, THIRD GENERATION (test code 0.379 UIU/ML = 2821) [id number] 00:00:00 Test Item Value Reference Range Interpretation Comments TSH, THIRD GENERATION (test code 0.379 UIU/ML = 2821) [id number] 00:00:00 Test Item Value Reference Range Interpretation Comments TSH, THIRD GENERATION (test code 0.379 UIU/ML = 2821) [id number] 00:00:00 Test Item Value Reference Range Interpretation Comments TSH, THIRD GENERATION (test code 0.379 UIU/ML = 2821) [id number] 00:00:00 Test Item Value Reference Range Interpretation Comments TSH, THIRD GENERATION (test code 0.379 UIU/ML = 2821) CULTURE, [id number] 00:00:00 Test Item Value Reference Range Interpretation Comments CULTURE, URINE (test SPECIMEN NUMBER: code = 34596) [id number] CULTURE, [id number] 00:00:00 Test Item Value Reference Range Interpretation Comments CULTURE, URINE (test SPECIMEN NUMBER: code = 40403) [id number] CULTURE, [id number] 00:00:00 Test Item Value Reference Range Interpretation Comments CULTURE, URINE (test SPECIMEN NUMBER: code = 41952) [id number] CULTURE, [id number] 00:00:00 Test Item Value Reference Range Interpretation Comments CULTURE, URINE (test SPECIMEN NUMBER: code = 78526) [id number] CULTURE, [id number] 00:00:00 Test Item Value Reference Range Interpretation Comments CULTURE, URINE (test SPECIMEN NUMBER: code = 30711) [id number] CULTURE, [id number] 00:00:00 Test Item Value Reference Range Interpretation Comments CULTURE, URINE (test SPECIMEN NUMBER: code = 60722) [id number] CULTURE, [id number] 00:00:00 Test Item Value Reference Range Interpretation Comments CULTURE, URINE (test SPECIMEN NUMBER: code = 46412) [id number] COMPREHENSIVE METABOLIC [id number] 00:00:00 Test Item Value Reference Range Interpretation Comments GLUCOSE (test code = 2217) 128 MG/DL BUN (test code = 2208) 26 MG/DL CREATININE (test code = 2214) 0.92 MG/DL eGFR AMER. (test code 81 ML/MIN/1.73 = 57269) eGFR NON- AMER. (test 70 ML/MIN/1.73 code = 00587) CALC BUN/CREAT (test code = 28 RATIO [...] code = 2219) 29 U/L COMPREHENSIVE METABOLIC [id number] 00:00:00 Test Item Value Reference Range Interpretation Comments GLUCOSE (test code = 2217) 128 MG/DL BUN (test code = 2208) 26 MG/DL CREATININE (test code = 2214) 0.92 MG/DL eGFR AMER. (test code 81 ML/MIN/1.73 = 65275) eGFR NON- AMER. (test 70 ML/MIN/1.73 code = 65853) CALC BUN/CREAT (test code = 28 RATIO [...] code = 2219) 29 U/L ACUTE HEPATITIS [id number] 00:00:00 Test Item Value Reference Range Interpretation Comments HEPATITIS A IgM (test code = NON-REACTIVE 37895) HEPATITIS B CORE IgM (test code NON-REACTIVE = 4644) HEPATITIS B SURF AG (test code = NON-REACTIVE 2739) HEPATITIS C ANTIBODY (test code NON-REACTIVE = 4675) INTERPRETATION HEPATITIS A: (NOTE) (test code = 2552) INTERPRETATION HEPATITIS B: (NOTE) (test code = 06738) INTERPRETATION HEPATITIS C: (NOTE) (test code = 30896) ACUTE HEPATITIS [id number] 00:00:00 Test Item Value Reference Range Interpretation Comments HEPATITIS A IgM (test code = NON-REACTIVE 11470) HEPATITIS B CORE IgM (test code NON-REACTIVE = 4644) HEPATITIS B SURF AG (test code = NON-REACTIVE 2739) HEPATITIS C ANTIBODY (test code NON-REACTIVE = 4675) INTERPRETATION HEPATITIS A: (NOTE) (test code = 2552) INTERPRETATION HEPATITIS B: (NOTE) (test code = 18426) INTERPRETATION HEPATITIS C: (NOTE) (test code = 39275) [id number] 00:00:00 Test Item Value Reference Range Interpretation Comments AMYLASE (test code = 2205) 32 U/L [id number] 00:00:00 Test Item Value Reference Range Interpretation Comments AMYLASE (test code = 2205) 32 U/L [id number] 00:00:00 Test Item Value Reference Range Interpretation Comments LIPASE (test code = 2058) 22 U/L [id number] 00:00:00 Test Item Value Reference Range Interpretation Comments LIPASE (test code = 2058) 22 U/L [id number] 00:00:00 Test Item Value Reference Range Interpretation Comments LIPASE (test code = 2058) 22 U/L COMPREHENSIVE METABOLIC [id number] 00:00:00 Test Item Value Reference Range Interpretation Comments GLUCOSE (test code = 2217) 128 MG/DL BUN (test code = 2208) 26 MG/DL CREATININE (test code = 2214) 0.92 MG/DL eGFR AMER. (test code 81 ML/MIN/1.73 = 81673) eGFR NON- AMER. (test 70 ML/MIN/1.73 code = 88069) CALC BUN/CREAT (test code = 28 RATIO [...] code = 2219) 29 U/L COMPREHENSIVE METABOLIC [id number] 00:00:00 Test Item Value Reference Range Interpretation Comments GLUCOSE (test code = 2217) 128 MG/DL BUN (test code = 2208) 26 MG/DL CREATININE (test code = 2214) 0.92 MG/DL eGFR AMER. (test code 81 ML/MIN/1.73 = 05090) eGFR NON- AMER. (test 70 ML/MIN/1.73 code = 41552) CALC BUN/CREAT (test code = 28 RATIO [...] code = 2219) 29 U/L ACUTE HEPATITIS [id number] 00:00:00 Test Item Value Reference Range Interpretation Comments HEPATITIS A IgM (test code = NON-REACTIVE 57652) HEPATITIS B CORE IgM (test code NON-REACTIVE = 4644) HEPATITIS B SURF AG (test code = NON-REACTIVE 2739) HEPATITIS C ANTIBODY (test code NON-REACTIVE = 4675) INTERPRETATION HEPATITIS A: (NOTE) (test code = 2552) INTERPRETATION HEPATITIS B: (NOTE) (test code = 76807) INTERPRETATION HEPATITIS C: (NOTE) (test code = 53913) ACUTE HEPATITIS [id number] 00:00:00 Test Item Value Reference Range Interpretation Comments HEPATITIS A IgM (test code = NON-REACTIVE 52182) HEPATITIS B CORE IgM (test code NON-REACTIVE = 4644) HEPATITIS B SURF AG (test code = NON-REACTIVE 2739) HEPATITIS C ANTIBODY (test code NON-REACTIVE = 4675) INTERPRETATION HEPATITIS A: (NOTE) (test code = 2552) INTERPRETATION HEPATITIS B: (NOTE) (test code = 10726) INTERPRETATION HEPATITIS C: (NOTE) (test code = 49673) [id number] 00:00:00 Test Item Value Reference Range Interpretation Comments AMYLASE (test code = 2205) 32 U/L [id number] 00:00:00 Test Item Value Reference Range Interpretation Comments AMYLASE (test code = 2205) 32 U/L [id number] 00:00:00 Test Item Value Reference Range Interpretation Comments LIPASE (test code = 2058) 22 U/L [id number] 00:00:00 Test Item Value Reference Range Interpretation Comments LIPASE (test code = 2058) 22 U/L [id number] 00:00:00 Test Item Value Reference Range Interpretation Comments LIPASE (test code = 2058) 22 U/L COMPREHENSIVE METABOLIC [id number] 00:00:00 Test Item Value Reference Range Interpretation Comments GLUCOSE (test code = 2217) 128 MG/DL BUN (test code = 2208) 26 MG/DL CREATININE (test code = 2214) 0.92 MG/DL eGFR AMER. (test code 81 ML/MIN/1.73 = 79011) eGFR NON- AMER. (test 70 ML/MIN/1.73 code = 61064) CALC BUN/CREAT (test code = 28 RATIO [...] code = 2219) 29 U/L ACUTE HEPATITIS [id number] 00:00:00 Test Item Value Reference Range Interpretation Comments HEPATITIS A IgM (test code = NON-REACTIVE 51150) HEPATITIS B CORE IgM (test code NON-REACTIVE = 4644) HEPATITIS B SURF AG (test code = NON-REACTIVE 8566) HEPATITIS C ANTIBODY (test code NON-REACTIVE = 7152) INTERPRETATION HEPATITIS A: (NOTE) (test code = 2552) INTERPRETATION HEPATITIS B: (NOTE) (test code = 45245) INTERPRETATION HEPATITIS C: (NOTE) (test code = 41851) [id number] 00:00:00 Test Item Value Reference Range Interpretation Comments AMYLASE (test code = 2205) 32 U/L [id number] 00:00:00 Test Item Value Reference Range Interpretation Comments LIPASE (test code = 2058) 22 U/L [id number] 00:00:00 Test Item Value Reference Range Interpretation Comments LIPASE (test code = 2058) 22 U/L COMPREHENSIVE METABOLIC [id number] 00:00:00 Test Item Value Reference Range Interpretation Comments GLUCOSE (test code = 2217) 128 MG/DL BUN (test code = 2208) 26 MG/DL CREATININE (test code = 2214) 0.92 MG/DL eGFR AMER. (test code 81 ML/MIN/1.73 = 11858) eGFR NON- AMER. (test 70 ML/MIN/1.73 code = 83764) CALC BUN/CREAT (test code = 28 RATIO [...] code = 2219) 29 U/L COMPREHENSIVE METABOLIC [id number] 00:00:00 Test Item Value Reference Range Interpretation Comments GLUCOSE (test code = 2217) 128 MG/DL BUN (test code = 2208) 26 MG/DL CREATININE (test code = 2214) 0.92 MG/DL eGFR AMER. (test code 81 ML/MIN/1.73 = 83289) eGFR NON- AMER. (test 70 ML/MIN/1.73 code = 01281) CALC BUN/CREAT (test code = 28 RATIO [...] code = 2219) 29 U/L ACUTE HEPATITIS [id number] 00:00:00 Test Item Value Reference Range Interpretation Comments HEPATITIS A IgM (test code = NON-REACTIVE 28205) HEPATITIS B CORE IgM (test code NON-REACTIVE = 4644) HEPATITIS B SURF AG (test code = NON-REACTIVE 2739) HEPATITIS C ANTIBODY (test code NON-REACTIVE = 4675) INTERPRETATION HEPATITIS A: (NOTE) (test code = 2552) INTERPRETATION HEPATITIS B: (NOTE) (test code = 51872) INTERPRETATION HEPATITIS C: (NOTE) (test code = 26235) ACUTE HEPATITIS [id number] 00:00:00 Test Item Value Reference Range Interpretation Comments HEPATITIS A IgM (test code = NON-REACTIVE 04935) HEPATITIS B CORE IgM (test code NON-REACTIVE = 4644) HEPATITIS B SURF AG (test code = NON-REACTIVE 2739) HEPATITIS C ANTIBODY (test code NON-REACTIVE = 4675) INTERPRETATION HEPATITIS A: (NOTE) (test code = 2552) INTERPRETATION HEPATITIS B: (NOTE) (test code = 71206) INTERPRETATION HEPATITIS C: (NOTE) (test code = 79016) [id number] 00:00:00 Test Item Value Reference Range Interpretation Comments AMYLASE (test code = 2205) 32 U/L [id number] 00:00:00 Test Item Value Reference Range Interpretation Comments AMYLASE (test code = 2205) 32 U/L [id number] 00:00:00 Test Item Value Reference Range Interpretation Comments LIPASE (test code = 2058) 22 U/L [id number] 00:00:00 Test Item Value Reference Range Interpretation Comments LIPASE (test code = 2058) 22 U/L [id number] 00:00:00 Test Item Value Reference Range Interpretation Comments LIPASE (test code = 2058) 22 U/L [id number] 00:00:00 Test Item Value Reference Range Interpretation Comments TSH, THIRD GENERATION (test code 4.890 UIU/ML = 2821) [id number] 00:00:00 Test Item Value Reference Range Interpretation Comments TSH, THIRD GENERATION (test code 4.890 UIU/ML = 2821) [id number] 00:00:00 Test Item Value Reference Range Interpretation Comments TSH, THIRD GENERATION (test code 4.890 UIU/ML = 2821) COMPREHENSIVE METABOLIC [id number] 00:00:00 Test Item Value Reference Range Interpretation Comments GLUCOSE (test code = 2217) 121 MG/DL BUN (test code = 2208) 40 MG/DL CREATININE (test code = 2214) 1.48 MG/DL eGFR AMER. (test code 45 ML/MIN/1.73 = 34781) eGFR NON- AMER. (test 39 ML/MIN/1.73 code = 42123) CALC BUN/CREAT (test code = 27 RATIO [...] code = 2219) 20 U/L COMPREHENSIVE METABOLIC [id number] 00:00:00 Test Item Value Reference Range Interpretation Comments GLUCOSE (test code = 2217) 121 MG/DL BUN (test code = 2208) 40 MG/DL CREATININE (test code = 2214) 1.48 MG/DL eGFR AMER. (test code 45 ML/MIN/1.73 = 39129) eGFR NON- AMER. (test 39 ML/MIN/1.73 code = 97714) CALC BUN/CREAT (test code = 27 RATIO [...] ALT (test code = 2219) 20 U/L [id number] 00:00:00 Test Item Value Reference Range Interpretation Comments TSH, THIRD GENERATION (test code 4.890 UIU/ML = 2821) [id number] 00:00:00 Test Item Value Reference Range Interpretation Comments TSH, THIRD GENERATION (test code 4.890 UIU/ML = 2821) [id number] 00:00:00 Test Item Value Reference Range Interpretation Comments TSH, THIRD GENERATION (test code 4.890 UIU/ML = 2821) COMPREHENSIVE METABOLIC [id number] 00:00:00 Test Item Value Reference Range Interpretation Comments GLUCOSE (test code = 2217) 121 MG/DL BUN (test code = 2208) 40 MG/DL CREATININE (test code = 2214) 1.48 MG/DL eGFR AMER. (test code 45 ML/MIN/1.73 = 79280) eGFR NON- AMER. (test 39 ML/MIN/1.73 code = 54908) CALC BUN/CREAT (test code = 27 RATIO [...] code = 2219) 20 U/L COMPREHENSIVE METABOLIC [id number] 00:00:00 Test Item Value Reference Range Interpretation Comments GLUCOSE (test code = 2217) 121 MG/DL BUN (test code = 2208) 40 MG/DL CREATININE (test code = 2214) 1.48 MG/DL eGFR AMER. (test code 45 ML/MIN/1.73 = 52275) eGFR NON- AMER. (test 39 ML/MIN/1.73 code = 68318) CALC BUN/CREAT (test code = 27 RATIO [...] ALT (test code = 2219) 20 U/L [id number] 00:00:00 Test Item Value Reference Range Interpretation Comments TSH, THIRD GENERATION (test code 4.890 UIU/ML = 2821) [id number] 00:00:00 Test Item Value Reference Range Interpretation Comments TSH, THIRD GENERATION (test code 4.890 UIU/ML = 2821) COMPREHENSIVE METABOLIC [id number] 00:00:00 Test Item Value Reference Range Interpretation Comments GLUCOSE (test code = 2217) 121 MG/DL BUN (test code = 2208) 40 MG/DL CREATININE (test code = 2214) 1.48 MG/DL eGFR AMER. (test code 45 ML/MIN/1.73 = 90896) eGFR NON- AMER. (test 39 ML/MIN/1.73 code = 69985) CALC BUN/CREAT (test code = 27 RATIO [...] ALT (test code = 2219) 20 U/L [id number] 00:00:00 Test Item Value Reference Range Interpretation Comments TSH, THIRD GENERATION (test code 4.890 UIU/ML = 2821) [id number] 00:00:00 Test Item Value Reference Range Interpretation Comments TSH, THIRD GENERATION (test code 4.890 UIU/ML = 2821) [id number] 00:00:00 Test Item Value Reference Range Interpretation Comments TSH, THIRD GENERATION (test code 4.890 UIU/ML = 2821) COMPREHENSIVE METABOLIC [id number] 00:00:00 Test Item Value Reference Range Interpretation Comments GLUCOSE (test code = 2217) 121 MG/DL BUN (test code = 2208) 40 MG/DL CREATININE (test code = 2214) 1.48 MG/DL eGFR AMER. (test code 45 ML/MIN/1.73 = 65629) eGFR NON- AMER. (test 39 ML/MIN/1.73 code = 54037) CALC BUN/CREAT (test code = 27 RATIO [...] code = 2219) 20 U/L COMPREHENSIVE METABOLIC [id number] 00:00:00 Test Item Value Reference Range Interpretation Comments GLUCOSE (test code = 2217) 121 MG/DL BUN (test code = 2208) 40 MG/DL CREATININE (test code = 2214) 1.48 MG/DL eGFR AMER. (test code 45 ML/MIN/1.73 = 14525) eGFR NON- AMER. (test 39 ML/MIN/1.73 code = 17159) CALC BUN/CREAT (test [...] (test code = 2219) 20 U/L LIPID [id number] 00:00:00 Test Item Value Reference Range Interpretation Comments CHOLESTEROL (test code = 2210) 261 MG/DL TRIGLYCERIDES (test code = 2232) 165 MG/DL HDL CHOLESTEROL (test code = 2220) 58 MG/DL CALC LDL CHOL (test code = 2237) 170 MG/DL RISK RATIO LDL/HDL (test code = 2.93 RATIO 2238) LIPID [id number] 00:00:00 Test Item Value Reference Range Interpretation Comments CHOLESTEROL (test code = 2210) 261 MG/DL TRIGLYCERIDES (test code = 2232) 165 MG/DL HDL CHOLESTEROL (test code = 2220) 58 MG/DL CALC LDL CHOL (test code = 2237) 170 MG/DL RISK RATIO LDL/HDL (test code = 2.93 RATIO 2238) CBC W/AUTO [id number] 00:00:00 Test Item Value Reference Range Interpretation [...] code = 1015) 378 K/UL CBC W/AUTO [id number] 00:00:00 Test Item Value Reference Range Interpretation [...] code = 1015) 378 K/UL CBC W/AUTO [id number] 00:00:00 Test Item Value Reference Range Interpretation [...] (test code = 1015) 378 K/UL HEMOGLOBIN [id number] 00:00:00 Test Item Value Reference Range Interpretation Comments HEMOGLOBIN A1c (test code = 43148) 6.4 % HEMOGLOBIN [id number] 00:00:00 Test Item Value Reference Range Interpretation Comments HEMOGLOBIN A1c (test code = 46461) 6.4 % HEMOGLOBIN [id number] 00:00:00 Test Item Value Reference Range Interpretation Comments HEMOGLOBIN A1c (test code = 63378) 6.4 % [id number] 00:00:00 Test Item Value Reference Range Interpretation Comments TSH (test code = 2821) 5.290 UIU/ML [id number] 00:00:00 Test Item Value Reference Range Interpretation Comments TSH (test code = 2821) 5.290 UIU/ML [id number] 00:00:00 Test Item Value Reference Range Interpretation Comments TSH (test code = 2821) 5.290 UIU/ML LIPID [id number] 00:00:00 Test Item Value Reference Range Interpretation Comments CHOLESTEROL (test code = 2210) 261 MG/DL TRIGLYCERIDES (test code = 2232) 165 MG/DL HDL CHOLESTEROL (test code = 2220) 58 MG/DL CALC LDL CHOL (test code = 2237) 170 MG/DL RISK RATIO LDL/HDL (test code = 2.93 RATIO 2238) LIPID [id number] 00:00:00 Test Item Value Reference Range Interpretation Comments CHOLESTEROL (test code = 2210) 261 MG/DL TRIGLYCERIDES (test code = 2232) 165 MG/DL HDL CHOLESTEROL (test code = 2220) 58 MG/DL CALC LDL CHOL (test code = 2237) 170 MG/DL RISK RATIO LDL/HDL (test code = 2.93 RATIO 2238) CBC W/AUTO [id number] 00:00:00 Test Item Value Reference Range Interpretation [...] code = 1015) 378 K/UL CBC W/AUTO [id number] 00:00:00 Test Item Value Reference Range Interpretation [...] code = 1015) 378 K/UL CBC W/AUTO [id number] 00:00:00 Test Item Value Reference Range Interpretation [...] (test code = 1015) 378 K/UL HEMOGLOBIN [id number] 00:00:00 Test Item Value Reference Range Interpretation Comments HEMOGLOBIN A1c (test code = 75884) 6.4 % HEMOGLOBIN [id number] 00:00:00 Test Item Value Reference Range Interpretation Comments HEMOGLOBIN A1c (test code = 73841) 6.4 % HEMOGLOBIN [id number] 00:00:00 Test Item Value Reference Range Interpretation Comments HEMOGLOBIN A1c (test code = 40202) 6.4 % [id number] 00:00:00 Test Item Value Reference Range Interpretation Comments TSH (test code = 2821) 5.290 UIU/ML [id number] 00:00:00 Test Item Value Reference Range Interpretation Comments TSH (test code = 2821) 5.290 UIU/ML [id number] 00:00:00 Test Item Value Reference Range Interpretation Comments TSH (test code = 2821) 5.290 UIU/ML LIPID [id number] 00:00:00 Test Item Value Reference Range Interpretation Comments CHOLESTEROL (test code = 2210) 261 MG/DL TRIGLYCERIDES (test code = 2232) 165 MG/DL HDL CHOLESTEROL (test code = 2220) 58 MG/DL CALC LDL CHOL (test code = 2237) 170 MG/DL RISK RATIO LDL/HDL (test code = 2.93 RATIO 2238) CBC W/AUTO [id number] 00:00:00 Test Item Value Reference Range Interpretation [...] code = 1015) 378 K/UL CBC W/AUTO [id number] 00:00:00 Test Item Value Reference Range Interpretation [...] (test code = 1015) 378 K/UL HEMOGLOBIN [id number] 00:00:00 Test Item Value Reference Range Interpretation Comments HEMOGLOBIN A1c (test code = 13093) 6.4 % HEMOGLOBIN [id number] 00:00:00 Test Item Value Reference Range Interpretation Comments HEMOGLOBIN A1c (test code = 60680) 6.4 % [id number] 00:00:00 Test Item Value Reference Range Interpretation Comments TSH (test code = 2821) 5.290 UIU/ML [id number] 00:00:00 Test Item Value Reference Range Interpretation Comments TSH (test code = 2821) 5.290 UIU/ML LIPID [id number] 00:00:00 Test Item Value Reference Range Interpretation Comments CHOLESTEROL (test code = 2210) 261 MG/DL TRIGLYCERIDES (test code = 2232) 165 MG/DL HDL CHOLESTEROL (test code = 2220) 58 MG/DL CALC LDL CHOL (test code = 2237) 170 MG/DL RISK RATIO LDL/HDL (test code = 2.93 RATIO 2238) LIPID [id number] 00:00:00 Test Item Value Reference Range Interpretation Comments CHOLESTEROL (test code = 2210) 261 MG/DL TRIGLYCERIDES (test code = 2232) 165 MG/DL HDL CHOLESTEROL (test code = 2220) 58 MG/DL CALC LDL CHOL (test code = 2237) 170 MG/DL RISK RATIO LDL/HDL (test code = 2.93 RATIO 2238) CBC W/AUTO [id number] 00:00:00 Test Item Value Reference Range Interpretation [...] code = 1015) 378 K/UL CBC W/AUTO [id number] 00:00:00 Test Item Value Reference Range Interpretation [...] code = 1015) 378 K/UL CBC W/AUTO [id number] 00:00:00 Test Item Value Reference Range Interpretation [...] (test code = 1015) 378 K/UL HEMOGLOBIN [id number] 00:00:00 Test Item Value Reference Range Interpretation Comments HEMOGLOBIN A1c (test code = 86392) 6.4 % HEMOGLOBIN [id number] 00:00:00 Test Item Value Reference Range Interpretation Comments HEMOGLOBIN A1c (test code = 27862) 6.4 % HEMOGLOBIN [id number] 00:00:00 Test Item Value Reference Range Interpretation Comments HEMOGLOBIN A1c (test code = 47608) 6.4 % [id number] 00:00:00 Test Item Value Reference Range Interpretation Comments TSH (test code = 2821) 5.290 UIU/ML [id number] 00:00:00 Test Item Value Reference Range Interpretation Comments TSH (test code = 2821) 5.290 UIU/ML [id number] 00:00:00 Test Item Value Reference Range Interpretation [...] code = 2821) 1.030 UIU/ML COMPREHENSIVE METABOLIC [id number] 00:00:00 Test Item Value Reference Range Interpretation Comments GLUCOSE (test code = 2217) 106 MG/DL BUN (test code = 2208) 23 MG/DL CREATININE (test code = 2214) 0.66 MG/DL eGFR AMER. (test code 114 ML/MIN/1.73 = 23002) eGFR NON- AMER. (test 99 ML/MIN/1.73 code = 20506) CALC BUN/CREAT (test code = 35 RATIO [...] code = 2219) 31 U/L COMPREHENSIVE METABOLIC [id number] 00:00:00 Test Item Value Reference Range Interpretation Comments GLUCOSE (test code = 2217) 106 MG/DL BUN (test code = 2208) 23 MG/DL CREATININE (test code = 2214) 0.66 MG/DL eGFR AMER. (test code 114 ML/MIN/1.73 = 64472) eGFR NON- AMER. (test 99 ML/MIN/1.73 code = 47223) CALC BUN/CREAT (test code = 35 RATIO [...] CALCULATED T7 (FTI) (test code = 1.71 1540) TSH (test code = 2821) 0.335 UIU/ML THYROID II PROFILE (T3U, T4, T7, [id number] 00:00:00 Test Item Value Reference Range Interpretation Comments T3 UPTAKE (test code = 281) 31.6 % T4 (THYROXINE) (test code = 5.4 UG/DL 2818) CALCULATED T7 (FTI) (test code = 1.71 2820) TSH (test code = 2821) 0.335 UIU/ML COMPREHENSIVE METABOLIC [id number] 00:00:00 Test Item Value Reference Range Interpretation Comments GLUCOSE (test code = 2217) 106 MG/DL BUN (test code = 2208) 23 MG/DL CREATININE (test code = 2214) 0.66 MG/DL eGFR AMER. (test code 114 ML/MIN/1.73 = 87908) eGFR NON- AMER. (test 99 ML/MIN/1.73 code = 36265) CALC BUN/CREAT (test code = 35 RATIO [...] code = 2219) 31 U/L COMPREHENSIVE METABOLIC [id number] 00:00:00 Test Item Value Reference Range Interpretation Comments GLUCOSE (test code = 2217) 106 MG/DL BUN (test code = 2208) 23 MG/DL CREATININE (test code = 2214) 0.66 MG/DL eGFR AMER. (test code 114 ML/MIN/1.73 = 77518) eGFR NON- AMER. (test 99 ML/MIN/1.73 code = 13130) CALC BUN/CREAT (test code = 35 RATIO [...] code = 2821) 0.335 UIU/ML COMPREHENSIVE METABOLIC [id number] 00:00:00 Test Item Value Reference Range Interpretation Comments GLUCOSE (test code = 2217) 106 MG/DL BUN (test code = 2208) 23 MG/DL CREATININE (test code = 2214) 0.66 MG/DL eGFR AMER. (test code 114 ML/MIN/1.73 = 20948) eGFR NON- AMER. (test 99 ML/MIN/1.73 code = 72840) CALC BUN/CREAT (test code = 35 RATIO [...] code = 2821) 0.335 UIU/ML COMPREHENSIVE METABOLIC [id number] 00:00:00 Test Item Value Reference Range Interpretation Comments GLUCOSE (test code = 2217) 106 MG/DL BUN (test code = 2208) 23 MG/DL CREATININE (test code = 2214) 0.66 MG/DL eGFR AMER. (test code 114 ML/MIN/1.73 = 30305) eGFR NON- AMER. (test 99 ML/MIN/1.73 code = 60053) CALC BUN/CREAT (test code = 35 RATIO [...] code = 2219) 31 U/L COMPREHENSIVE METABOLIC [id number] 00:00:00 Test Item Value Reference Range Interpretation Comments GLUCOSE (test code = 2217) 106 MG/DL BUN (test code = 2208) 23 MG/DL CREATININE (test code = 2214) 0.66 MG/DL eGFR AMER. (test code 114 ML/MIN/1.73 = 98966) eGFR NON- AMER. (test 99 ML/MIN/1.73 code = 63896) CALC BUN/CREAT (test code = 35 RATIO [...] code = 2821) 0.335 UIU/ML COMPREHENSIVE METABOLIC [id number] 00:00:00 Test Item Value Reference Range Interpretation Comments GLUCOSE (test code = 2217) 103 MG/DL BUN (test code = 2208) 15 MG/DL CREATININE (test code = 2214) 0.77 MG/DL eGFR AMER. (test code 101 ML/MIN/1.73 = 87607) eGFR NON- AMER. (test 87 ML/MIN/1.73 code = 38454) CALC BUN/CREAT (test code = 19 RATIO [...] code = 2219) 24 U/L COMPREHENSIVE METABOLIC [id number] 00:00:00 Test Item Value Reference Range Interpretation Comments GLUCOSE (test code = 2217) 103 MG/DL BUN (test code = 2208) 15 MG/DL CREATININE (test code = 2214) 0.77 MG/DL eGFR AMER. (test code 101 ML/MIN/1.73 = 29065) eGFR NON- AMER. (test 87 ML/MIN/1.73 code = 30596) CALC BUN/CREAT (test code = 19 RATIO [...] code = 2821) 0.424 UIU/ML COMPREHENSIVE METABOLIC [id number] 00:00:00 Test Item Value Reference Range Interpretation Comments GLUCOSE (test code = 2217) 103 MG/DL BUN (test code = 2208) 15 MG/DL CREATININE (test code = 2214) 0.77 MG/DL eGFR AMER. (test code 101 ML/MIN/1.73 = 74586) eGFR NON- AMER. (test 87 ML/MIN/1.73 code = 46402) CALC BUN/CREAT (test code = 19 RATIO [...] code = 2219) 24 U/L COMPREHENSIVE METABOLIC [id number] 00:00:00 Test Item Value Reference Range Interpretation Comments GLUCOSE (test code = 2217) 103 MG/DL BUN (test code = 2208) 15 MG/DL CREATININE (test code = 2214) 0.77 MG/DL eGFR AMER. (test code 101 ML/MIN/1.73 = 08915) eGFR NON- AMER. (test 87 ML/MIN/1.73 code = 32517) CALC BUN/CREAT (test code = 19 RATIO [...] code = 2821) 0.424 UIU/ML COMPREHENSIVE METABOLIC [id number] 00:00:00 Test Item Value Reference Range Interpretation Comments GLUCOSE (test code = 2217) 103 MG/DL BUN (test code = 2208) 15 MG/DL CREATININE (test code = 2214) 0.77 MG/DL eGFR AMER. (test code 101 ML/MIN/1.73 = 93061) eGFR NON- AMER. (test 87 ML/MIN/1.73 code = 74982) CALC BUN/CREAT (test code = 19 RATIO [...] code = 2821) 0.424 UIU/ML COMPREHENSIVE METABOLIC [id number] 00:00:00 Test Item Value Reference Range Interpretation Comments GLUCOSE (test code = 2217) 103 MG/DL BUN (test code = 2208) 15 MG/DL CREATININE (test code = 2214) 0.77 MG/DL eGFR AMER. (test code 101 ML/MIN/1.73 = 35650) eGFR NON- AMER. (test 87 ML/MIN/1.73 code = 58226) CALC BUN/CREAT (test code = 19 RATIO [...] code = 2219) 24 U/L COMPREHENSIVE METABOLIC [id number] 00:00:00 Test Item Value Reference Range Interpretation Comments GLUCOSE (test code = 2217) 103 MG/DL BUN (test code = 2208) 15 MG/DL CREATININE (test code = 2214) 0.77 MG/DL eGFR AMER. (test code 101 ML/MIN/1.73 = 38325) eGFR NON- AMER. (test 87 ML/MIN/1.73 code = 31175) CALC BUN/CREAT (test code = 19 RATIO [...] (test code = 2821) 0.424 UIU/ML CULTURE, [id number] 00:00:00 Test Item Value Reference Range Interpretation Comments CULTURE, URINE (test SPECIMEN NUMBER: code = 71839) [id number] CULTURE, [id number] 00:00:00 Test Item Value Reference Range Interpretation Comments CULTURE, URINE (test SPECIMEN NUMBER: code = 95556) [id number] CULTURE, [id number] 00:00:00 Test Item Value Reference Range Interpretation Comments CULTURE, URINE (test SPECIMEN NUMBER: code = 93415) [id number] CULTURE, [id number] 00:00:00 Test Item Value Reference Range Interpretation Comments CULTURE, URINE (test SPECIMEN NUMBER: code = 61589) [id number] CULTURE, [id number] 00:00:00 Test Item Value Reference Range Interpretation Comments CULTURE, URINE (test SPECIMEN NUMBER: code = 28373) [id number] CULTURE, [id number] 00:00:00 Test Item Value Reference Range Interpretation Comments CULTURE, URINE (test SPECIMEN NUMBER: code = 13838) [id number] CULTURE, [id number] 00:00:00 Test Item Value Reference Range Interpretation Comments CULTURE, URINE (test SPECIMEN NUMBER: code = 73152) [id number] CULTURE, [id number] 00:00:00 Test Item Value Reference Range Interpretation Comments CULTURE, URINE (test SPECIMEN NUMBER: code = 40628) [id number] CULTURE, [id number] 00:00:00 Test Item Value Reference Range Interpretation Comments CULTURE, URINE (test SPECIMEN NUMBER: code = 93634) [id number] CULTURE, [id number] 00:00:00 Test Item Value Reference Range Interpretation Comments CULTURE, URINE (test SPECIMEN NUMBER: code = 66721) [id number] CULTURE, [id number] 00:00:00 Test Item Value Reference Range Interpretation Comments CULTURE, URINE (test SPECIMEN NUMBER: code = 68444) [id number] CULTURE, [id number] 00:00:00 Test Item Value Reference Range Interpretation Comments CULTURE, URINE (test SPECIMEN NUMBER: code = 14531) [id number] CULTURE, [id number] 00:00:00 Test Item Value Reference Range Interpretation Comments CULTURE, URINE (test SPECIMEN NUMBER: code = 24486) [id number] CULTURE, [id number] 00:00:00 Test Item Value Reference Range Interpretation Comments CULTURE, URINE (test SPECIMEN NUMBER: code = 17399) [id number]
[2022-07-05 14:16] LABS: Absolute Lymphocytes (CBC) 1.9 K/uL (0.7-4.9); Hematocrit 36.2 % (36.0-45.0); MPV 6.9 fL (7.6-11.3); RBC Red Blood Cell Count 3.97 M/uL (3.86-4.86)
[2022-07-05] MEDS ORDERED: ONDANSETRON 4 MG (ODT) TAB ONE (14:16)
[2022-07-05 14:33] LABS: Potassium 4.5 mEq/L (3.5-5.1)
--- NOTE | 2022-07-05 15:01 | EDPHYS ---
Physician Documentation [facility] Name: Jaimie Amanda Age: 61 yrs Sex: Female : 1960 Arrival Date: 07/05/2022 Time: 12:20 Bed DIS4 Private MD: ED Physician Wilfrid Singh HPI: 07/05 13:38 This 61 yrs old Female presents to ER via Ambulatory with complaints of headache. ms3 13:38 61-year-old female with past medical history of anxiety, chronic abdominal pain, ms3 hypertension, hypothyroidism, hyponatremia presents for headache that has been going on for 2 days. Patient's mother states patient fell the day prior to her recent hospitalization. Patient states her pain is 10/10. Patient denies alleviating or inciting factors. Historical: - Allergies: 13:33 No Known Allergies; hb - Home Meds: 13:33 Clonidine Oral [Active]; hb - PMHx: 13:33 Anxiety; Chronic Abdominal Pain; Hypertensive disorder; Hypothyroidism; low NA; NIDDM; hb - PSHx: 13:33 Thyroidectomy; hb - Immunization history:: Adult Immunizations up to date. - Social history:: Smoking status: Patient denies any tobacco usage or history of. ROS: 13:38 Constitutional: Negative for fever, and chills. Neck: Negative for injury, pain, and ms3 swelling, Cardiovascular: Negative for chest pain, and palpitations. Respiratory: Negative for shortness of breath, cough, wheezing, and pleuritic chest pain, Back: Negative for injury and pain, MS/Extremity: Negative for injury and deformity, Skin: Negative for injury, rash, and discoloration. 13:38 Abdomen/GI: Positive for nausea. 13:38 Neuro: Positive for headache. 13:38 All other systems are negative. Exam: 13:38 Constitutional: This is a well developed, well nourished patient who is awake, alert, ms3 and in no acute distress. Head/Face: Normocephalic, atraumatic. Neck: Trachea midline, no cervical lymphadenopathy. Supple, full range of motion without nuchal rigidity, or vertebral point tenderness. No Meningismus. Chest/axilla: Normal chest wall appearance and motion. Nontender with no deformity. Cardiovascular: Regular rate and rhythm with a normal S1 and S2. No gallops, murmurs, or rubs. Normal PMI, no JVD. No pulse deficits. Respiratory: Lungs have equal breath sounds bilaterally, clear to auscultation and percussion. No rales, rhonchi or wheezes noted. No increased work of breathing, no retractions or nasal flaring. Abdomen/GI: Soft, non-tender, with normal bowel sounds. No distension or tympany. No guarding or rebound. No evidence of tenderness throughout. Skin: Warm, dry with normal turgor. Normal color with no rashes, no lesions, and no evidence of cellulitis. MS/ Extremity: Pulses equal, no cyanosis. Neurovascular intact. Full, normal range of motion. Psych: Awake, alert, with orientation to person, place and time. Behavior, mood, and affect are within normal limits. Vital Signs: 13:32 BP 165 / 85; Pulse 74; Resp 16; Temp 98.8(TE); Pulse Ox 97% on R/A; Weight 68.04 kg; hb Height 5 ft. 4 in. ; Pain 10/10; 13:32 Body Mass Index 25.75 (68.04 kg, 162.56 cm) hb 13:32 Pain Scale: Adult hb MDM: 13:35 Patient medically screened. ms3 13:38 Differential diagnosis: Headache, SDH, hyponatremia. ED course: Patient and her mother ms3 decline CT head at this time as patient has had "too many" CTs. Discussed possibility of missing delayed ICH with them. They decline CT.. 15:03 Data reviewed: vital signs, nurses notes, lab test result(s), and as a result, I will ms3 discharge patient. Management of patient was discussed with the following: Hospitalist: Discussed with Dr Byrd and patient d/c with Na of 128.. Test considered but Not performed: CT: Patient and her mother decline head CT. Historians other than the Patient: Parent: Patient's mother. Counseling: I had a detailed discussion with the patient and/or guardian regarding: the historical points, exam findings, and any diagnostic results supporting the discharge/admit diagnosis, lab results, the need for outpatient follow up, to return to the emergency department if symptoms worsen or persist or if there are any questions or concerns that arise at home. Response to treatment: the patient's symptoms have markedly improved after treatment, and as a result, I will discharge patient. Refusal of service: The patient/guardian displays adequate decision making capability and despite a detailed discussion of alternatives, benefits, risks, and consequences refuses: CT Scan. Special discussion: I discussed with the patient/guardian in detail that at this point there is no indication for admission to the hospital. It is understood, however, that if the symptoms persist or worsen the patient needs to return immediately for re-evaluation. 07/05 13:35 Order name: CBC with Diff; Complete Time: 14:23 ms3 07/05 13:35 Order name: BMP; Complete Time: 14:50 ms3 Administered Medications: 14:12 Drug: Ondansetron PO 4 mg Route: PO; iw 14:30 Follow up: Response: No adverse reaction iw 14:56 Not Given (Physician Discretion): Pantoprazole IV 8 mg/hr IV at 25 ml/hr continuous; iw (Standard dilution is 80 mg in 250 mL NS) 14:56 Not Given (Physician Discretion): Pantoprazole IVP 40 mg IVP once iw Disposition Summary: 07/05/22 15:00 Discharge Ordered Location: Home ms3 Condition: Stable ms3 Diagnosis - Headache ms3 - Nausea ms3 - Hypo-osmolality and hyponatremia - chronic ms3 - Essential (primary) hypertension ms3 Forms: - Medication Reconciliation Form ms3 - Thank You Letter ms3 - Antibiotic Education ms3 - Prescription Opioid Use ms3 Signatures: Dispatcher [employer] Therese Coello RN Gail Zayas RN Wilfrid Bustillos, DO ms3 Corrections: (The following items were deleted from the chart) 13:34 12:28 Before Triage iw iw 13:34 12:28 (see nurse's notes) iw iw 13:34 13:33 Allergies: Hydrochlorothiazide; hb hb
[2022-07-05 15:18] VITALS: BP 165/85; TEMP 98.8; O2SAT 97
== END 2022-07-05 15:12 | disposition home or self-care (01) ==
LOC: ER 12:20
DX: R51.9 Headache, unspecified (principal); R11.0 Nausea; E87.1 Hypo-osmolality and hyponatremia; I10 Essential (primary) hypertension; F41.9 Anxiety disorder, unspecified
CPT/HCPCS: 85025; 80048; 36415; Q0162; 99283

== ENCOUNTER 2022-07-05 17:51 | Emergency (ER) | payer OTHER ==
--- OUTSIDE RECORDS SUMMARY | 2022-07-05 18:06 | XMS REPORT | Continuity of Care Document ---
:1960 Author Organization [facility] t Address [address] [place] [address] [place] [id number] Care Team Providers Name Role Phone [facility] Primary Care Physician MATT SIMPSON Attending Clinician Unavailable MATT SIMPSON Attending Clinician Unavailable Doctor Unassigned, [place] Attending Clinician Unavailable WALLY KRISHNAMURTHY Attending Clinician Unavailable Natacha Brewster Attending Clinician Payers Payer Name Policy Type Policy Number Effective Date Expiration Date Sarina castelan [facility] [id number] 2017 00:00:00 PLUS Problems This patient has [...] Cente r Alcohol intake 2016-05-01 2016-05-[address] [facility] 00:00:00 00:00:00 non-drinker of Medical nter alcohol (finding) Sex Assigned At [birth year] [facility] 00:[facility]:00 [facility] Smoking Status Start Date Stop Date Source Smokes tobacco daily 2016-05-01 00:00:00 [facility] Medications Ordered [...] [facility]: nightly. [address] OXcarbazepi 2017-0 Yes 600mg Q.[id number] Take [address] ne 2-23 [id number] [facility] (TRILEPTAL) 10:23: 3D mouth 3 Med ical 600 [facility] 59 (three) Center tablet times daily. PARoxetine 2017-0 Yes 40mg QD Take [address] (PAXIL) 40 2-23 by mouth [facility] 10:23: nightly. [address] 2017-0 Yes 600mg Q.[id number] Take [address] ne 2-23 [id number] [facility] (TRILEPTAL) 10:23: 3D mouth 3 Med ical 600 [facility] 59 (three) Center tablet times daily. PARoxetine 2017-0 Yes 40mg QD Take [address] (PAXIL) 40 2-23 by [facility] 10:23: nightly. [address] 2017-0 Yes 600mg Q.[id number] Take [address] ne 2-23 [id number] [facility] (TRILEPTAL) 10:23: 3D mouth 3 Med ical 600 MG 59 (three) Center tablet times daily. PARoxetine 2017-0 Yes 40mg QD Take [address] (PAXIL) 40 2-23 by [facility] 10:23: nightly. [address] 2017-0 Yes 600mg Q.[id number] Take [address] ne 2-23 [id number] [facility] (TRILEPTAL) 10:23: 3D mouth 3 Med ical 600 MG 59 (three) Center tablet times daily. PARoxetine 2017-0 Yes 40mg QD Take [address] (PAXIL) 40 2-23 by [facility] 10:23: nightly. [address] 2017-0 Yes 600mg Q.99459763 Take [address] ne 2-23 [id number] [facility] (TRILEPTAL) 10:23: 3D mouth 3 Med ical 600 MG 59 (three) Center tablet times daily. PARoxetine 2017-0 Yes 40mg QD Take [address] (PAXIL) 40 2-23 by [facility] 10:23: nightly. [address] 2017-0 Yes 600mg Q.[id number] Take [address] ne 2-23 [id number] mg by [facility] (TRILEPTAL) 10:23: 3D mouth 3 Med ical 600 MG 59 (three) Center tablet times daily. OXcarbazepi 2017-0 Yes 600mg Q.97880308 Take [address] ne 2-23 [id number] [facility] by [facility] (TRILEPTAL) 10:23: 3D mouth 3 Med ical 600 MG 59 (three) Center tablet times daily. PARoxetine 2017-0 Yes 40mg QD Take [address] (PAXIL) 40 2-23 by mouth [facility] 10:23: nightly. [address] OXcarbazepi 2017-0 Yes 600mg Q.[id number] Take [address] ne 2-23 [id number] [facility] by [facility] (TRILEPTAL) 10:23: 3D mouth 3 Med ical 600 MG 59 (three) Center tablet times daily. PARoxetine 2017-0 Yes 40mg QD Take [address] (PAXIL) 40 2-23 by [facility] 10:23: nightly. [address] OXcarbazepi 2017-0 Yes 600mg Q.[id number] Take [address] ne 2-23 [id number] [facility] (TRILEPTAL) 10:23: 3D mouth 3 Med ical 600 MG 59 (three) Center tablet times daily. PARoxetine 2017-0 Yes 40mg QD Take [address] (PAXIL) 40 2-23 by [facility] 10:23: nightly. [address] PARoxetine 2017-0 Yes 40mg QD Take [address] (PAXIL) 40 2-23 by mouth [facility] 10:23: nightly. [address] OXcarbazepi 2017-0 Yes 600mg Q.[id number] Take [address] ne 2-23 [id number] [facility] by [facility] (TRILEPTAL) 10:23: 3D mouth 3 Med ical 600 MG 59 (three) Center tablet times daily. PARoxetine 2017-0 Yes 40mg QD Take [address] (PAXIL) 40 2-23 by [facility] 10:23: nightly. [address] OXcarbazepi 2017-0 Yes 600mg Q.06171701 Take [address] ne 2-23 [id number] mg by [facility] (TRILEPTAL) 10:23: 3D mouth 3 Med ical 600 MG 59 (three) Center tablet times daily. PARoxetine 2017-0 Yes 40mg QD Take [address] (PAXIL) 40 2-23 by [facility] 10:23: nightly. [address] 2017-0 Yes 600mg Q.[id number] Take [address] ne 2-23 [id number] mg by [facility] (TRILEPTAL) 10:23: 3D mouth 3 Med ical 600 MG 59 (three) Center tablet times daily. PARoxetine 2017-0 Yes 40mg QD Take [address] (PAXIL) 40 2-23 by [facility] 10:23: nightly. [address] 2017-0 Yes 600mg Q.66564965 Take [address] ne 2-23 [id number] mg [facility] (TRILEPTAL) 10:23: 3D mouth 3 Med ical 600 MG 59 (three) Center tablet times daily. PARoxetine 2017-0 Yes 40mg QD Take [address] (PAXIL) 40 2-23 by mouth [facility] 10:23: nightly. [address] 2017-0 Yes 600mg Q.[id number] Take [address] ne 2-23 [id number] [facility] by [facility] (TRILEPTAL) 10:23: 3D mouth 3 Med ical 600 MG 59 (three) Center tablet times daily. PARoxetine 2017-0 Yes 40mg QD Take [address] (PAXIL) 40 2-23 by mouth [facility] 10:23: nightly. [address] OXcarbazepi 2017-0 Yes 600mg Q.[id number] Take [address] ne 2-23 [id number] mg by [facility] (TRILEPTAL) 10:23: 3D mouth 3 Med ical 600 MG 59 (three) Center tablet times daily. PARoxetine 2017-0 Yes 40mg QD Take [address] (PAXIL) 40 2-23 by [facility] 10:23: nightly. [address] 2017-0 Yes 600mg Q.[id number] Take [address] ne 2-23 [id number] mg [facility] (TRILEPTAL) 10:23: 3D mouth 3 Med ical 600 MG 59 (three) Center tablet times daily. PARoxetine 2017-0 Yes 40mg QD Take [address] (PAXIL) 40 2-23 by mouth [facility] 10:23: nightly. [facility] [address] OXcarbazepi 2017-0 Yes 600mg Q.[id number] Take [address] ne 2-23 [id number] mg by [facility] (TRILEPTAL) 10:23: 3D mouth 3 Med ical 600 MG 59 (three) Center tablet times daily. OXcarbazepi 2017-0 Yes 600mg Q.[id number] Take [address] ne 2-23 [id number] mg by [facility] (TRILEPTAL) 10:23: 3D mouth 3 Med ical 600 MG 59 (three) Center tablet times daily. PARoxetine 2017-0 Yes 40mg QD Take [address] (PAXIL) 40 2-23 by mouth [facility] 10:23: nightly. [address] OXcarbazepi 2017-0 Yes 600mg Q.[id number] Take [address] ne 2-23 [id number] mg by [facility] (TRILEPTAL) 10:23: 3D mouth 3 Med ical 600 MG 59 (three) Center tablet times daily. PARoxetine 2017-0 Yes 40mg QD Take [address] (PAXIL) 40 2-23 by mouth [facility] tablet 10:23: nightly. [facility] [address] OXcarbazepi 2017-0 Yes 600mg Q.[id number] Take [address] ne 2-23 [id number] mg by [facility] (TRILEPTAL) 10:23: 3D mouth 3 Med ical 600 MG 59 (three) Center tablet times daily. PARoxetine 2017-0 Yes 40mg QD Take [address] (PAXIL) 40 2-23 by mouth [facility] tablet 10:23: nightly. [facility] [address] PARoxetine 2017-0 Yes 40mg QD Take [address] (PAXIL) 40 2-23 by mouth [facility] 10:23: nightly. [address] OXcarbazepi 2017-0 Yes 600mg Q.[id number] Take [address] ne 2-23 [id number] mg by [facility] (TRILEPTAL) 10:23: 3D mouth 3 Med ical 600 MG 59 (three) Center tablet times daily. PARoxetine 2017-0 Yes 40mg QD Take [address] (PAXIL) 40 2-23 by mouth [facility] tablet 10:23: nightly. [facility] [address] OXcarbazepi 2017-0 Yes 600mg Q.[id number] Take [address] ne 2-23 [id number] mg by [facility] (TRILEPTAL) 10:23: 3D mouth 3 Med ical 600 MG 59 (three) Center tablet times daily. PARoxetine 2017-0 Yes 40mg QD Take [address] (PAXIL) 40 2-23 by mouth [facility] 10:23: nightly. [facility] Yes 600mg Q.[id number] Take [address] ne 2-23 [id number] mg [facility] (TRILEPTAL) 10:23: 3D mouth 3 Med ical 600 MG 59 (three) Center tablet times daily. PARoxetine 2017-0 Yes 40mg QD Take [address] (PAXIL) 40 2-23 by [facility] 10:23: nightly. [facility] Yes 600mg Q.[id number] Take [address] ne 2-23 [id number] mg by [facility] (TRILEPTAL) 10:23: 3D mouth 3 Med ical 600 MG 59 (three) Center tablet times daily. PARoxetine 2017-0 Yes 40mg QD Take [address] (PAXIL) 40 2-23 by mouth [facility] tablet 10:23: nightly. [facility] [address] OXcarbazepi 2017-0 Yes 600mg Q.[id number] Take [address] ne 2-23 [id number] mg by [facility] (TRILEPTAL) 10:23: 3D mouth 3 Med ical 600 MG 59 (three) Center tablet times daily. PARoxetine 2017-0 Yes 40mg QD Take [address] (PAXIL) 40 2-23 by mouth [facility] 10:23: nightly. [facility] Yes 600mg Q.03258061 Take [address] ne 2-23 [id number] mg by [facility] (TRILEPTAL) 10:23: 3D mouth 3 Med ical 600 MG 59 (three) Center tablet times daily. PARoxetine 2017-0 Yes 40mg QD Take [address] (PAXIL) 40 2-23 by mouth [facility] tablet 10:23: nightly. [address] OXcarbazepi 2017-0 Yes 600mg Q.[id number] Take [address] ne 2-23 [id number] mg by [facility] (TRILEPTAL) 10:23: 3D mouth 3 Med ical 600 MG 59 (three) Center tablet times daily. PARoxetine 2017-0 Yes 40mg QD Take [address] (PAXIL) 40 2-23 by mouth [facility] tablet 10:23: nightly. [address] OXcarbazepi 2017-0 Yes 600mg Q.[id number] Take [address] ne 2-23 [id number] mg by [facility] (TRILEPTAL) 10:23: 3D mouth 3 Med ical 600 MG 59 (three) Center tablet times daily. PARoxetine 2017-0 Yes 40mg QD Take [address] (PAXIL) 40 2-23 by mouth [facility] 10:23: nightly. [address] OXcarbazepi 2017-0 Yes 600mg Q.88811846 Take [address] ne 2-23 [id number] mg by [facility] (TRILEPTAL) 10:23: 3D mouth 3 Med ical 600 MG 59 (three) Center tablet times daily. OXcarbazepi 2017-0 Yes 600mg Q.54169710 Take [address] ne 2-23 [id number] mg by [facility] (TRILEPTAL) 10:23: 3D mouth 3 Med ical 600 MG 59 (three) Center tablet times daily. PARoxetine 2017-0 Yes 40mg QD Take [address] (PAXIL) 40 2-23 by mouth [facility] tablet 10:23: nightly. [address] OXcarbazepi 2017-0 Yes 600mg Q.51733397 Take [address] ne 2-23 [id number] mg by [facility] (TRILEPTAL) 10:23: 3D mouth 3 Med ical 600 MG 59 (three) Center tablet times daily. PARoxetine 2017-0 Yes 40mg QD Take [address] (PAXIL) 40 2-23 by mouth [facility] tablet 10:23: nightly. [address] 2017-0 Yes 600mg Q.90863949 Take [address] ne 2-23 [id number] mg by [facility] (TRILEPTAL) 10:23: 3D mouth 3 Med ical 600 MG 59 (three) Center tablet times daily. PARoxetine 2017-0 Yes 40mg QD Take [address] (PAXIL) 40 2-23 by mouth [facility] 10:23: nightly. [address] PARoxetine 2017-0 Yes 40mg QD Take [address] (PAXIL) 40 2-23 by mouth [facility] 10:23: nightly. [address] 2017-0 Yes 600mg Q.[id number] Take [address] ne 2-23 [id number] mg by [facility] (TRILEPTAL) 10:23: 3D mouth 3 Med ical 600 MG 59 (three) Center tablet times daily. PARoxetine 2017-0 Yes 40mg QD Take [address] (PAXIL) 40 2-23 by mouth [facility] 10:23: nightly. [address] 2017-0 Yes 600mg Q.57440092 Take [address] ne 2-23 [id number] mg by [facility] (TRILEPTAL) 10:23: 3D mouth 3 Med ical 600 MG 59 (three) Center tablet times daily. PARoxetine 2017-0 Yes 40mg QD Take [address] (PAXIL) 40 2-23 by mouth [facility] tablet 10:23: nightly. [address] OXcarbazepi 2017-0 Yes 600mg Q.15566460 Take [address] ne 2-23 [id number] mg by [facility] (TRILEPTAL) 10:23: 3D mouth 3 Med ical 600 MG 59 (three) Center tablet times daily. PARoxetine 2017-0 Yes 40mg QD Take [address] (PAXIL) 40 2-23 by mouth [facility] tablet 10:23: nightly. [address] OXcarbazepi 2017-0 Yes 600mg Q.87963091 Take [address] ne 2-23 [id number] mg by [facility] (TRILEPTAL) 10:23: 3D mouth [...] Goal Plan of Care Note [code = 88586-6] Goal Plan of Care Note [code = 74153-1] Goal Plan of Care Note [code = 42933-2] Goal Plan of Care Note [code = 58179-1] Goal Plan of Care Note [code = 90309-5] Goal Plan of Care Note [code = 87802-0] Goal Plan of Care Note [code = 24869-4] Goal Plan of Care Note [code = 60522-2] Goal Plan of Care Note [code = 98189-2] Goal Plan of Care Note [code = 85511-9] Goal Plan of Care Note [code = 29950-2] Goal Plan of Care Note [code = 48351-1] Goal Plan of Care Note [code = 94620-8] Goal Plan of Care Note [code = 70490-8] Goal Plan of Care Note [code = 96178-5] Goal Plan of Care Note [code = 43235-7] Goal Plan of Care Note [code = 32987-4] Goal Plan of Care Note [code = 59018-2] Goal Plan of Care Note [code = 30174-4] Goal Plan of Care Note [code = 04553-1] Goal Plan of Care Note [code = 08558-8] Goal Plan of Care Note [code = 68801-6] Goal Plan of Care Note [code = 29362-1] Goal Plan of Care Note [code = 60173-0] Goal Plan of Care Note [code = 27564-6] Goal Plan of Care Note [code = 53947-5] Goal Plan of Care Note [code = 12814-5] Goal Plan of Care Note [code = 03779-1] Goal Plan of Care Note [code = 21999-2] Goal Plan of Care Note [code = 79199-0] Goal Plan of Care Note [code = 32456-2] Goal Plan of Care Note [code = 35031-5] Goal Plan of Care Note [code = 85578-6] Goal Plan of Care Note [code = 00460-9] Goal Plan of Care Note [code = 59245-9] Goal Plan of Care Note [code = 85412-6] Goal Plan of Care Note [code = 60156-6] Goal Plan of Care Note [code = 23505-9] Goal Plan of Care Note [code = 70993-1] Goal Plan of Care Note [code = 28783-0] Goal Plan of Care Note [code = 73405-1] Goal Plan of Care Note [code = 78221-4] Goal Plan of Care Note [code = 36010-0] Goal Plan of Care Note [code = 01669-2] Goal Plan of Care Note [code = 81156-4] Goal Plan of Care Note [code = 22956-1] Goal Plan of Care Note [code = 50254-9] Goal Plan of Care Note [code = 48636-4] Goal Plan of Care Note [code = 32581-7] Goal Plan of Care Note [code = 69290-5] Goal Plan of Care Note [code = 32012-5] Goal Plan of Care Note [code = 57131-9] Goal Plan of Care Note [code = 69504-5] Goal Plan of Care Note [code = 51799-4] Goal Plan of Care Note [code = 65939-2] Goal Plan of Care Note [code = 64461-3] Goal Plan of Care Note [code = 94336-3] Goal Plan of Care Note [code = 05409-1] Goal Plan of Care Note [code = 06892-5] Goal Plan of Care Note [code = 07648-3] Goal Plan of Care Note [code = 77851-1] Goal Plan of Care Note [code = 28926-1] Goal Plan of Care Note [code = 90508-5] Goal Plan of Care Note [code = 44959-5] Goal Plan of Care Note [code = 59968-9] Goal Plan of Care Note [code = 20879-0] Goal Plan of Care Note [code = 40314-9] Goal Plan of Care Note [code = 20463-8] Goal Plan of Care Note [code = 75206-3] Goal Plan of Care Note [code = 07765-0] Goal Plan of Care Note [code = 02909-1] Goal Plan of Care Note [code = 84574-9] Goal Plan of Care Note [code = 52289-6] Goal Plan of Care Note [code = 55352-6] Goal Plan of Care Note [code = 14685-4] Goal Plan of Care Note [code = 35335-2] Goal Plan of Care Note [code = 05571-7] Goal Plan of Care Note [code = 25873-5] Goal Plan of Care Note [code = 08397-7] Goal Plan of Care Note [code = 00099-9] Goal Plan of Care Note [code = 83163-5] Goal Plan of Care Note [code = 90412-4] Goal Plan of Care Note [code = 12572-4] Goal Plan of Care Note [code = 38419-1] Goal Plan of Care Note [code = 51713-6] Goal Plan of Care Note [code = 56824-0] Goal Plan of Care Note [code = 29395-0] Goal Plan of Care Note [code = 01556-1] Goal Plan of Care Note [code = 92112-8] Goal Plan of Care Note [code = 61359-3] Goal Plan of Care Note [code = 44549-5] Goal Plan of Care Note [code = 31191-5] Goal Plan of Care Note [code = 60050-5] Goal Plan of Care Note [code = 78436-4] Goal Plan of Care Note [code = 23566-8] Goal Plan of Care Note [code = 59656-3] Goal Plan of Care Note [code = 49609-7] Goal Plan of Care Note [code = 46662-6] Goal Plan of Care Note [code = 55616-0] Goal Plan of Care Note [code = 19930-4] Goal Plan of Care Note [code = 79649-6] Goal Plan of Care Note [code = 62483-9] Goal Plan of Care Note [code = 85172-8] Goal Plan of Care Note [code = 96666-9] Goal Plan of Care Note [code = 17825-6] Goal Plan of Care Note [code = 08897-1] Goal Plan of Care Note [code = 60257-2] Goal Plan of Care Note [code = 20997-8] Goal Plan of Care Note [code = 95121-1] Goal Plan of Care Note [code = 32100-3] Goal Plan of Care Note [code = 18741-9] Goal Plan of Care Note [code = 00089-1] Goal Plan of Care Note [code = 66081-1] Goal Plan of Care Note [code = 90913-4] Goal Plan of Care Note [code = 38921-6] Goal Plan of Care Note [code = 63945-5] Goal Plan of Care Note [code = 40156-1] Goal Plan of Care Note [code = 59258-9] Goal Plan of Care Note [code = 15981-6] Goal Plan of Care Note [code = 90771-5] Goal Plan of Care Note [code = 98442-0] Goal Plan of Care Note [code = 39013-4] Goal Plan of Care Note [code = 26823-4] Goal Plan of Care Note [code = 92978-0] Goal Plan of Care Note [code = 87815-4] Goal Plan of Care Note [code = 56262-3] Goal Plan of Care Note [code = 90966-3] Goal Plan of Care Note [code = 82421-7] Goal Plan of Care Note [code = 07980-2] Goal Plan of Care Note [code = 96018-1] Goal Plan of Care Note [code = 37910-2] Goal Plan of Care Note [code = 96135-5] Goal Plan of Care Note [code = 11001-9] Goal Plan of Care Note [code = 12996-6] Goal Plan of Care Note [code = 61397-2] Goal Plan of Care Note [code = 49888-8] Goal Plan of Care Note [code = 23165-8] Goal Plan of Care Note [code = 46340-0] Goal Plan of Care Note [code = 33982-4] Goal Plan of Care Note [code = 74107-2] Goal Plan of Care Note [code = 68404-6] Goal Plan of Care Note [code = 00274-4] Goal Plan of Care Note [code = 99506-7] Goal Plan of Care Note [code = 00430-2] Goal Plan of Care Note [code = 37085-1] Goal Plan of Care Note [code = 83582-5] Goal Plan of Care Note [code = 03917-8] Goal Plan of Care Note [code = 88963-5] Goal Plan of Care Note [code = 28055-0] Goal Plan of Care Note [code = 83145-7] Goal Plan of Care Note [code = 95103-9] Goal Plan of Care Note [code = 49146-1] Goal Plan of Care Note [code = 47363-5] Goal Plan of Care Note [code = 10770-0] Goal Plan of Care Note [code = 30703-1] Goal Plan of Care Note [code = 89895-9] Goal Plan of Care Note [code = 27187-4] Goal Plan of Care Note [code = 13209-7] Goal Plan of Care Note [code = 77352-4] Goal Plan of Care Note [code = 81944-4] Goal Plan of Care Note [code = 41031-9] Goal Plan of Care Note [code = 54732-1] Goal Plan of Care Note [code = 10434-3] Goal Plan of Care Note [code = 11782-1] Goal Plan of Care Note [code = 39870-9] Goal Plan of Care Note [code = 53355-9] Goal Plan of Care Note [code = 04728-9] Goal Plan of Care Note [code = 61544-0] Goal Plan of Care Note [code = 94794-8] Goal Plan of Care Note [code = 75333-4] Goal Plan of Care Note [code = 93955-9] Goal Plan of Care Note [code = 83056-7] Goal Plan of Care Note [code = 43019-5] Goal Plan of Care Note [code = 33727-4] Goal Plan of Care Note [code = 64940-4] Goal Plan of Care Note [code = 25000-0] Goal Plan of Care Note [code = 44773-4] Goal Plan of Care Note [code = 25594-1] Goal Plan of Care Note [code = 94920-0] Goal Plan of Care Note [code = 54868-5] Goal Plan of Care Note [code = 40712-5] Goal Plan of Care Note [code = 75385-6] Goal Plan of Care Note [code = 90252-5] Goal Plan of Care Note [code = 10648-3] Goal Plan of Care Note [code = 74493-7] Goal Plan of Care Note [code = 09118-7] Goal Plan of Care Note [code = 42136-2] Goal Plan of Care Note [code = 64686-6] Goal Plan of Care Note [code = 60641-8] Goal Plan of Care Note [code = 25311-9] Goal Plan of Care Note [code = 97049-7] Goal Plan of Care Note [code = 97492-0] Goal Plan of Care Note [code = 46446-1] Goal Plan of Care Note [code = 70117-5] Goal Plan of Care Note [code = 89692-9] Goal Plan of Care Note [code = 09319-1] Goal Plan of Care Note [code = 25521-0] Goal Plan of Care Note [code = 44914-8] Goal Plan of Care Note [code = 15485-9] Goal Plan of Care Note [code = 17914-6] Goal Plan of Care Note [code = 92750-9] Goal Plan of Care Note [code = 06244-2] Goal Plan of Care Note [code = 22433-6] Goal Plan of Care Note [code = 88847-0] Goal Plan of Care Note [code = 85602-7] Goal Plan of Care Note [code = 85755-1] Goal Plan of Care Note [code = 04510-2] Goal Plan of Care Note [code = 94375-3] Encounters Start End Encounter Admission Attending Care Care Encounter Source Date/Time Date/Time Type Type Clinicians Facility Department ID 2021-06-01 Outpatient [facility] [id number] [place] 01:36:29 [id number] [facility] 2022-05-24 2022-05-24 Outpatient SFA SFA [id number] Cristian 10:36:59 10:36:59 0318 F Jerman 2022-02-11 2022-02-11 Outpatient SFA SFA [id number] Cristian 09:04:48 09:04:48 1206 F Jerman 2022-02-10 2022-02-10 Outpatient SFA SFA [id number] 022 Cristian 09:29:34 09:29:34 1205 F Jerman 2022-02-10 2022-02-10 Outpatient [id number] 00:00:00 00:00:00 Visit 4089-4cab 089-4cab-9 -3tj7-o6q bf5-b2z674 717diet36 bafa93 2022-01-10 2022-01-10 Outpatient SFA SFA [id number] 022 Cristian 09:16:14 09:16:14 1104 F Jerman 2022-01-10 2022-01-10 Outpatient [id number]- [id number] accaa6-a 00:00:00 00:00:00 Visit aca9-4c83 ca9-4c83-a -c3al-cj6 7eb-bc13f3 8s8q092v7 f032f9 2021-12-19 2021-12-19 Outpatient SFA SFA [id number] Shannon Foster 16:11:31 16:11:31 1013 F Jerman 2021-12-19 2021-12-19 Outpatient [id number] 00:00:00 00:00:00 Visit r713-772s 770-441f-a -adae-62b amelia-62bace mhiuf19vu fd81af 2021-09-17 2021-09-17 Outpatient [id number]- [id number]-6 00:00:00 00:00:00 Visit 935a-4f50 35a-4f50-b -r04e-p5w 77d-c2ba85 [id number] 1264a6 2020-08-03 2020-08-03 Outpatient MATT VÁSQUEZ [facility] [id number] [facility] 10:00:00 10:00:00 MATT SIMPSON [facility] 2020-07-25 2020-07-25 Orders Doctor ABE [id number] 00:00:00 00:00:00 Only Unassigned, BK 350.1.13.10 [place] [facility] 4.2.7.2.686 [id number] 2019-09-26 2019-09-26 Outpatient Bertin KRISHNAMURTHY [facility] [id number] [facility] 16:00:00 16:00:00 WALLY [facility] 2018-10-21 2018-10-21 [facility] [id number] 00:00:00 00:00:00 Natacha Nguyen 350.1.13.10 [place] 4.2.7.2.686 [place] [id number] [facility] 204 [facility] Results Test Description Test Time Test Comments Results Result Comments Source TSH, THIRD GENERATION 2022-05-26 02:57:49 Test Item Value Reference Range Interpretation Comme nts TSH, THIRD GENERATION (test code = 2821) 6.350 UIU/ML 0.400-4.100 H LIPID [id number] 01:09:34 Test Item Value Reference Range Interpretation [...] MOREINFORMATION , SEE CLIENT ANNOUNCE MENT AT [email or web address] RISK RATIO LDL/HDL 2.73 RATIO <3.22 CPL has important (test code = 2238) pathology staff changes effecti ve 05/07/2022. New pathology staff will provide uninter rupted, excellent patie nt care and clinical consultation. S ee URL: [email or web address]. UNLES S OTHERWISE INDIC ATED, ALL TESTING PER FORMED AT [facility] [employer] [facility], [facility]. [address] [place] [address] ISIDRA SUH DIRECTOR: Andrew WHITLEY CONNOR NUMBER [id number] CAP ACCREDITATION N O. [id number] HEMOGLOBIN [id number] 03:17:24 Test Item Value Reference Range Interpretation Comments HEMOGLOBIN A1c (test 6.4 % 4.2-5.6 H [employer]IC AN DIABETES code = 02187) ASSOCIATION IDELINES FOR HGB A1C: PREDIABETES/INC REASED [...] TESTING OR LABORATORY C ONSULTATION. TSH, THIRD [id number] 05:15:49 Test Item Value Reference Range Interpretation Comments TSH, THIRD GENERATION (test code 2.080 UIU/ML 0.400-4.100 = 2821) HEMOGLOBIN [id number] 03:46:00 Test Item Value Reference Range Interpretation Comments HEMOGLOBIN A1c (test 6.6 % 4.2-5.6 H [employer] AN DIABETES code = 46891) ASSOCIATION IDELINES FOR HGB A1C: PREDIABETES/INC REASED [...] INDICATED, ALL TESTING PER FORMED ATCLINICAL PATH [facility], [facility]. [address] [place] [address] LABORATORY DIRE CTOR: DIANA RUSS M.D. CLIA NUMBER [id number] [facility] [place]. [id number] LIPID [id number] 02:59:52 Test Item Value Reference Range Interpretation [...] MOREINFORMATION , SEE CLIENT ANNOUNCE MENT AT [email or web address] RISK RATIO LDL/HDL 4.02 RATIO <3.22 H (test code = 2238) [id number] 00:00:00 Test Item Value Reference Range Interpretation Comments TSH, THIRD GENERATION (test code 2.080 UIU/ML = 2821) [id number] 00:00:00 Test Item Value Reference Range Interpretation Comments TSH, THIRD GENERATION (test code 2.080 UIU/ML = 2821) [id number] 00:00:00 Test Item Value Reference Range Interpretation Comments TSH, THIRD GENERATION (test code 2.080 UIU/ML = 2821) LIPID [id number] 00:00:00 Test Item Value Reference Range Interpretation Comments CHOLESTEROL (test code = 2210) 292 MG/DL TRIGLYCERIDES (test code = 2232) 184 MG/DL HDL CHOLESTEROL (test code = 2220) 51 MG/DL CALC LDL CHOL (test code = 2237) 205 MG/DL RISK RATIO LDL/HDL (test code = 4.02 RATIO 2238) LIPID [id number] 00:00:00 Test Item Value Reference Range Interpretation Comments CHOLESTEROL (test code = 2210) 292 MG/DL TRIGLYCERIDES (test code = 2232) 184 MG/DL HDL CHOLESTEROL (test code = 2220) 51 MG/DL CALC LDL CHOL (test code = 2237) 205 MG/DL RISK RATIO LDL/HDL (test code = 4.02 RATIO 2238) HEMOGLOBIN [id number] 00:00:00 Test Item Value Reference Range Interpretation Comments HEMOGLOBIN A1c (test code = 34245) 6.6 % HEMOGLOBIN [id number] 00:00:00 Test Item Value Reference Range Interpretation Comments HEMOGLOBIN A1c (test code = 16771) 6.6 % HEMOGLOBIN [id number] 00:00:00 Test Item Value Reference Range Interpretation Comments HEMOGLOBIN A1c (test code = 05259) 6.6 % [id number] 00:00:00 Test Item Value Reference Range Interpretation Comments TSH, THIRD GENERATION (test code 2.080 UIU/ML = 2821) [id number] 00:00:00 Test Item Value Reference Range Interpretation Comments TSH, THIRD GENERATION (test code 2.080 UIU/ML = 2821) [id number] 00:00:00 Test Item Value Reference Range Interpretation Comments TSH, THIRD GENERATION (test code 2.080 UIU/ML = 2821) LIPID [id number] 00:00:00 Test Item Value Reference Range Interpretation Comments CHOLESTEROL (test code = 2210) 292 MG/DL TRIGLYCERIDES (test code = 2232) 184 MG/DL HDL CHOLESTEROL (test code = 2220) 51 MG/DL CALC LDL CHOL (test code = 2237) 205 MG/DL RISK RATIO LDL/HDL (test code = 4.02 RATIO 2238) LIPID [id number] 00:00:00 Test Item Value Reference Range Interpretation Comments CHOLESTEROL (test code = 2210) 292 MG/DL TRIGLYCERIDES (test code = 2232) 184 MG/DL HDL CHOLESTEROL (test code = 2220) 51 MG/DL CALC LDL CHOL (test code = 2237) 205 MG/DL RISK RATIO LDL/HDL (test code = 4.02 RATIO 2238) HEMOGLOBIN [id number] 00:00:00 Test Item Value Reference Range Interpretation Comments HEMOGLOBIN A1c (test code = 49600) 6.6 % HEMOGLOBIN [id number] 00:00:00 Test Item Value Reference Range Interpretation Comments HEMOGLOBIN A1c (test code = 88381) 6.6 % HEMOGLOBIN [id number] 00:00:00 Test Item Value Reference Range Interpretation Comments HEMOGLOBIN A1c (test code = 71694) 6.6 % [id number] 00:00:00 Test Item Value Reference Range Interpretation Comments TSH, THIRD GENERATION (test code 2.080 UIU/ML = 2821) [id number] 00:00:00 Test Item Value Reference Range Interpretation Comments TSH, THIRD GENERATION (test code 2.080 UIU/ML = 2821) LIPID [id number] 00:00:00 Test Item Value Reference Range Interpretation Comments CHOLESTEROL (test code = 2210) 292 MG/DL TRIGLYCERIDES (test code = 2232) 184 MG/DL HDL CHOLESTEROL (test code = 2220) 51 MG/DL CALC LDL CHOL (test code = 2237) 205 MG/DL RISK RATIO LDL/HDL (test code = 4.02 RATIO 2238) HEMOGLOBIN [id number] 00:00:00 Test Item Value Reference Range Interpretation Comments HEMOGLOBIN A1c (test code = 68090) 6.6 % HEMOGLOBIN [id number] 00:00:00 Test Item Value Reference Range Interpretation Comments HEMOGLOBIN A1c (test code = 96959) 6.6 % [id number] 00:00:00 Test Item Value Reference Range Interpretation Comments TSH, THIRD GENERATION (test code 2.080 UIU/ML = 2821) [id number] 00:00:00 Test Item Value Reference Range Interpretation Comments TSH, THIRD GENERATION (test code 2.080 UIU/ML = 2821) [id number] 00:00:00 Test Item Value Reference Range Interpretation Comments TSH, THIRD GENERATION (test code 2.080 UIU/ML = 2821) LIPID [id number] 00:00:00 Test Item Value Reference Range Interpretation Comments CHOLESTEROL (test code = 2210) 292 MG/DL TRIGLYCERIDES (test code = 2232) 184 MG/DL HDL CHOLESTEROL (test code = 2220) 51 MG/DL CALC LDL CHOL (test code = 2237) 205 MG/DL RISK RATIO LDL/HDL (test code = 4.02 RATIO 2238) LIPID [id number] 00:00:00 Test Item Value Reference Range Interpretation Comments CHOLESTEROL (test code = 2210) 292 MG/DL TRIGLYCERIDES (test code = 2232) 184 MG/DL HDL CHOLESTEROL (test code = 2220) 51 MG/DL CALC LDL CHOL (test code = 2237) 205 MG/DL RISK RATIO LDL/HDL (test code = 4.02 RATIO 2238) HEMOGLOBIN [id number] 00:00:00 Test Item Value Reference Range Interpretation Comments HEMOGLOBIN A1c (test code = 57784) 6.6 % HEMOGLOBIN [id number] 00:00:00 Test Item Value Reference Range Interpretation Comments HEMOGLOBIN A1c (test code = 00734) 6.6 % HEMOGLOBIN [id number] 00:00:00 Test Item Value Reference Range Interpretation Comments HEMOGLOBIN A1c (test code = 26555) 6.6 % HEMOGLOBIN [id number] 00:00:00 Test Item Value Reference Range Interpretation Comments HEMOGLOBIN A1c (test code = 06627) 6.8 % HEMOGLOBIN [id number] 00:00:00 Test Item Value Reference Range Interpretation Comments HEMOGLOBIN A1c (test code = 24865) 6.8 % HEMOGLOBIN [id number] 00:00:00 Test Item Value Reference Range Interpretation Comments HEMOGLOBIN A1c (test code = 71878) 6.8 % LIPID [id number] 00:00:00 Test Item Value Reference Range Interpretation Comments CHOLESTEROL (test code = 2210) 303 MG/DL TRIGLYCERIDES (test code = 2232) 191 MG/DL HDL CHOLESTEROL (test code = 2220) 61 MG/DL CALC LDL CHOL (test code = 2237) 205 MG/DL RISK RATIO LDL/HDL (test code = 3.36 RATIO 2238) LIPID [id number] 00:00:00 Test Item Value Reference Range Interpretation Comments CHOLESTEROL (test code = 2210) 303 MG/DL TRIGLYCERIDES (test code = 2232) 191 MG/DL HDL CHOLESTEROL (test code = 2220) 61 MG/DL CALC LDL CHOL (test code = 2237) 205 MG/DL RISK RATIO LDL/HDL (test code = 3.36 RATIO 2238) [id number] 00:00:00 Test Item Value Reference Range Interpretation Comments TSH, THIRD GENERATION (test code 0.769 UIU/ML = 2821) [id number] 00:00:00 Test Item Value Reference Range Interpretation Comments TSH, THIRD GENERATION (test code 0.769 UIU/ML = 2821) [id number] 00:00:00 Test Item Value Reference Range Interpretation Comments TSH, THIRD GENERATION (test code 0.769 UIU/ML = 2821) COMPREHENSIVE METABOLIC [id number] 00:00:00 Test Item Value Reference Range Interpretation Comments GLUCOSE (test code = 2217) 131 MG/DL BUN (test code = 2208) 13 MG/DL CREATININE (test code = 2214) 0.65 MG/DL eGFR AMER. (test code 113 ML/MIN/1.73 = 02727) eGFR NON- AMER. (test 97 ML/MIN/1.73 code = 88459) CALC BUN/CREAT (test code = 20 RATIO [...] code = 2219) 23 U/L COMPREHENSIVE METABOLIC [id number] 00:00:00 Test Item Value Reference Range Interpretation Comments GLUCOSE (test code = 2217) 131 MG/DL BUN (test code = 2208) 13 MG/DL CREATININE (test code = 2214) 0.65 MG/DL eGFR AMER. (test code 113 ML/MIN/1.73 = 34658) eGFR NON- AMER. (test 97 ML/MIN/1.73 code = 70694) CALC BUN/CREAT (test code = 20 RATIO [...] (test code = 2219) 23 U/L HEMOGLOBIN [id number] 00:00:00 Test Item Value Reference Range Interpretation Comments HEMOGLOBIN A1c (test code = 79073) 6.8 % HEMOGLOBIN [id number] 00:00:00 Test Item Value Reference Range Interpretation Comments HEMOGLOBIN A1c (test code = 25969) 6.8 % HEMOGLOBIN [id number] 00:00:00 Test Item Value Reference Range Interpretation Comments HEMOGLOBIN A1c (test code = 68270) 6.8 % LIPID [id number] 00:00:00 Test Item Value Reference Range Interpretation Comments CHOLESTEROL (test code = 2210) 303 MG/DL TRIGLYCERIDES (test code = 2232) 191 MG/DL HDL CHOLESTEROL (test code = 2220) 61 MG/DL CALC LDL CHOL (test code = 2237) 205 MG/DL RISK RATIO LDL/HDL (test code = 3.36 RATIO 2238) LIPID [id number] 00:00:00 Test Item Value Reference Range Interpretation Comments CHOLESTEROL (test code = 2210) 303 MG/DL TRIGLYCERIDES (test code = 2232) 191 MG/DL HDL CHOLESTEROL (test code = 2220) 61 MG/DL CALC LDL CHOL (test code = 2237) 205 MG/DL RISK RATIO LDL/HDL (test code = 3.36 RATIO 2238) [id number] 00:00:00 Test Item Value Reference Range Interpretation Comments TSH, THIRD GENERATION (test code 0.769 UIU/ML = 2821) [id number] 00:00:00 Test Item Value Reference Range Interpretation Comments TSH, THIRD GENERATION (test code 0.769 UIU/ML = 2821) [id number] 00:00:00 Test Item Value Reference Range Interpretation Comments TSH, THIRD GENERATION (test code 0.769 UIU/ML = 2821) COMPREHENSIVE METABOLIC [id number] 00:00:00 Test Item Value Reference Range Interpretation Comments GLUCOSE (test code = 2217) 131 MG/DL BUN (test code = 2208) 13 MG/DL CREATININE (test code = 2214) 0.65 MG/DL eGFR AMER. (test code 113 ML/MIN/1.73 = 07038) eGFR NON- AMER. (test 97 ML/MIN/1.73 code = 31981) CALC BUN/CREAT (test code = 20 RATIO [...] code = 2219) 23 U/L COMPREHENSIVE METABOLIC [id number] 00:00:00 Test Item Value Reference Range Interpretation Comments GLUCOSE (test code = 2217) 131 MG/DL BUN (test code = 2208) 13 MG/DL CREATININE (test code = 2214) 0.65 MG/DL eGFR AMER. (test code 113 ML/MIN/1.73 = 95013) eGFR NON- AMER. (test 97 ML/MIN/1.73 code = 66864) CALC BUN/CREAT (test code = 20 RATIO [...] (test code = 2219) 23 U/L HEMOGLOBIN [id number] 00:00:00 Test Item Value Reference Range Interpretation Comments HEMOGLOBIN A1c (test code = 35530) 6.8 % HEMOGLOBIN [id number] 00:00:00 Test Item Value Reference Range Interpretation Comments HEMOGLOBIN A1c (test code = 76466) 6.8 % LIPID [id number] 00:00:00 Test Item Value Reference Range Interpretation Comments CHOLESTEROL (test code = 2210) 303 MG/DL TRIGLYCERIDES (test code = 2232) 191 MG/DL HDL CHOLESTEROL (test code = 2220) 61 MG/DL CALC LDL CHOL (test code = 2237) 205 MG/DL RISK RATIO LDL/HDL (test code = 3.36 RATIO 2238) [id number] 00:00:00 Test Item Value Reference Range Interpretation Comments TSH, THIRD GENERATION (test code 0.769 UIU/ML = 2821) [id number] 00:00:00 Test Item Value Reference Range Interpretation Comments TSH, THIRD GENERATION (test code 0.769 UIU/ML = 2821) COMPREHENSIVE METABOLIC [id number] 00:00:00 Test Item Value Reference Range Interpretation Comments GLUCOSE (test code = 2217) 131 MG/DL BUN (test code = 2208) 13 MG/DL CREATININE (test code = 2214) 0.65 MG/DL eGFR AMER. (test code 113 ML/MIN/1.73 = 50779) eGFR NON- AMER. (test 97 ML/MIN/1.73 code = 85920) CALC BUN/CREAT (test code = 20 RATIO [...] (test code = 2219) 23 U/L HEMOGLOBIN [id number] 00:00:00 Test Item Value Reference Range Interpretation Comments HEMOGLOBIN A1c (test code = 22339) 6.8 % HEMOGLOBIN [id number] 00:00:00 Test Item Value Reference Range Interpretation Comments HEMOGLOBIN A1c (test code = 07244) 6.8 % HEMOGLOBIN [id number] 00:00:00 Test Item Value Reference Range Interpretation Comments HEMOGLOBIN A1c (test code = 25414) 6.8 % LIPID [id number] 00:00:00 Test Item Value Reference Range Interpretation Comments CHOLESTEROL (test code = 2210) 303 MG/DL TRIGLYCERIDES (test code = 2232) 191 MG/DL HDL CHOLESTEROL (test code = 2220) 61 MG/DL CALC LDL CHOL (test code = 2237) 205 MG/DL RISK RATIO LDL/HDL (test code = 3.36 RATIO 2238) LIPID [id number] 00:00:00 Test Item Value Reference Range Interpretation Comments CHOLESTEROL (test code = 2210) 303 MG/DL TRIGLYCERIDES (test code = 2232) 191 MG/DL HDL CHOLESTEROL (test code = 2220) 61 MG/DL CALC LDL CHOL (test code = 2237) 205 MG/DL RISK RATIO LDL/HDL (test code = 3.36 RATIO 2238) [id number] 00:00:00 Test Item Value Reference Range Interpretation Comments TSH, THIRD GENERATION (test code 0.769 UIU/ML = 2821) [id number] 00:00:00 Test Item Value Reference Range Interpretation Comments TSH, THIRD GENERATION (test code 0.769 UIU/ML = 2821) [id number] 00:00:00 Test Item Value Reference Range Interpretation Comments TSH, THIRD GENERATION (test code 0.769 UIU/ML = 2821) COMPREHENSIVE METABOLIC [id number] 00:00:00 Test Item Value Reference Range Interpretation Comments GLUCOSE (test code = 2217) 131 MG/DL BUN (test code = 2208) 13 MG/DL CREATININE (test code = 2214) 0.65 MG/DL eGFR AMER. (test code 113 ML/MIN/1.73 = 80971) eGFR NON- AMER. (test 97 ML/MIN/1.73 code = 50891) CALC BUN/CREAT (test code = 20 RATIO [...] code = 2219) 23 U/L COMPREHENSIVE METABOLIC [id number] 00:00:00 Test Item Value Reference Range Interpretation Comments GLUCOSE (test code = 2217) 131 MG/DL BUN (test code = 2208) 13 MG/DL CREATININE (test code = 2214) 0.65 MG/DL eGFR AMER. (test code 113 ML/MIN/1.73 = 56439) eGFR NON- AMER. (test 97 ML/MIN/1.73 code = 64676) CALC BUN/CREAT (test code = 20 RATIO [...] (test code = 2219) 23 U/L HEMOGLOBIN [id number] 00:00:00 Test Item Value Reference Range Interpretation Comments HEMOGLOBIN A1c (test code = 58543) 6.6 % HEMOGLOBIN [id number] 00:00:00 Test Item Value Reference Range Interpretation Comments HEMOGLOBIN A1c (test code = 34367) 6.6 % HEMOGLOBIN [id number] 00:00:00 Test Item Value Reference Range Interpretation Comments HEMOGLOBIN A1c (test code = 34936) 6.6 % LIPID [id number] 00:00:00 Test Item Value Reference Range Interpretation Comments CHOLESTEROL (test code = 2210) 261 MG/DL TRIGLYCERIDES (test code = 2232) 159 MG/DL HDL CHOLESTEROL (test code = 2220) 82 MG/DL CALC LDL CHOL (test code = 2237) 150 MG/DL RISK RATIO LDL/HDL (test code = 1.83 RATIO 2238) LIPID [id number] 00:00:00 Test Item Value Reference Range Interpretation Comments CHOLESTEROL (test code = 2210) 261 MG/DL TRIGLYCERIDES (test code = 2232) 159 MG/DL HDL CHOLESTEROL (test code = 2220) 82 MG/DL CALC LDL CHOL (test code = 2237) 150 MG/DL RISK RATIO LDL/HDL (test code = 1.83 RATIO 2238) COMPREHENSIVE METABOLIC [id number] 00:00:00 Test Item Value Reference Range Interpretation Comments GLUCOSE (test code = 2217) 144 MG/DL BUN (test code = 2208) 15 MG/DL CREATININE (test code = 2214) 0.85 MG/DL eGFR AMER. (test code 87 ML/MIN/1.73 = 36491) eGFR NON- AMER. (test 75 ML/MIN/1.73 code = 33531) CALC BUN/CREAT (test code = 18 RATIO [...] code = 2219) 50 U/L COMPREHENSIVE METABOLIC [id number] 00:00:00 Test Item Value Reference Range Interpretation Comments GLUCOSE (test code = 2217) 144 MG/DL BUN (test code = 2208) 15 MG/DL CREATININE (test code = 2214) 0.85 MG/DL eGFR AMER. (test code 87 ML/MIN/1.73 = 45023) eGFR NON- AMER. (test 75 ML/MIN/1.73 code = 39740) CALC BUN/CREAT (test code = 18 RATIO [...] THYROX. BIND. CAPAC. (test code 1.1 = 46561) T4 (THYROXINE) (test code = 4.3 UG/DL 281) CORRECTED T4 (FTI) (test code = 3.9 UG/DL 2820) TSH, THIRD GENERATION (test 18.900 UIU/ML code = 2821) THYROID II PROFILE (T3U, T4, T7, TSH)[id number] 00:00:00 Test Item Value Reference Range Interpretation Comments T-UPTAKE (test code = 2816) 30.2 % THYROX. BIND. CAPAC. (test code 1.1 = 05487) T4 (THYROXINE) (test code = 4.3 UG/DL 2819) CORRECTED T4 (FTI) (test code = 3.9 UG/DL 2820) TSH, THIRD GENERATION (test 18.900 UIU/ML code = 2821) HEMOGLOBIN [id number] 00:00:00 Test Item Value Reference Range Interpretation Comments HEMOGLOBIN A1c (test code = 41661) 6.6 % HEMOGLOBIN [id number] 00:00:00 Test Item Value Reference Range Interpretation Comments HEMOGLOBIN A1c (test code = 17458) 6.6 % HEMOGLOBIN [id number] 00:00:00 Test Item Value Reference Range Interpretation Comments HEMOGLOBIN A1c (test code = 60258) 6.6 % LIPID [id number] 00:00:00 Test Item Value Reference Range Interpretation Comments CHOLESTEROL (test code = 2210) 261 MG/DL TRIGLYCERIDES (test code = 2232) 159 MG/DL HDL CHOLESTEROL (test code = 2220) 82 MG/DL CALC LDL CHOL (test code = 2237) 150 MG/DL RISK RATIO LDL/HDL (test code = 1.83 RATIO 2238) LIPID [id number] 00:00:00 Test Item Value Reference Range Interpretation Comments CHOLESTEROL (test code = 2210) 261 MG/DL TRIGLYCERIDES (test code = 2232) 159 MG/DL HDL CHOLESTEROL (test code = 2220) 82 MG/DL CALC LDL CHOL (test code = 2237) 150 MG/DL RISK RATIO LDL/HDL (test code = 1.83 RATIO 2238) COMPREHENSIVE METABOLIC [id number] 00:00:00 Test Item Value Reference Range Interpretation Comments GLUCOSE (test code = 2217) 144 MG/DL BUN (test code = 2208) 15 MG/DL CREATININE (test code = 2214) 0.85 MG/DL eGFR AMER. (test code 87 ML/MIN/1.73 = 17092) eGFR NON- AMER. (test 75 ML/MIN/1.73 code = 54732) CALC BUN/CREAT (test code = 18 RATIO [...] code = 2219) 50 U/L COMPREHENSIVE METABOLIC [id number] 00:00:00 Test Item Value Reference Range Interpretation Comments GLUCOSE (test code = 2217) 144 MG/DL BUN (test code = 2208) 15 MG/DL CREATININE (test code = 2214) 0.85 MG/DL eGFR AMER. (test code 87 ML/MIN/1.73 = 24892) eGFR NON- AMER. (test 75 ML/MIN/1.73 code = 37656) CALC BUN/CREAT (test code = 18 RATIO [...] THYROX. BIND. CAPAC. (test code 1.1 = 15612) T4 (THYROXINE) (test code = 4.3 UG/DL 2819) CORRECTED T4 (FTI) (test code = 3.9 UG/DL 2820) TSH, THIRD GENERATION (test 18.900 UIU/ML code = 2821) THYROID II PROFILE (T3U, T4, T7, TSH)2020-05-23 00:00:00 Test Item Value Reference Range Interpretation Comments T-UPTAKE (test code = 7) 30.2 % THYROX. BIND. CAPAC. (test code 1.1 = 79405) T4 (THYROXINE) (test code = 4.3 UG/DL 2819) CORRECTED T4 (FTI) (test code = 3.9 UG/DL 2820) TSH, THIRD GENERATION (test 18.900 UIU/ML code = 2821) HEMOGLOBIN [id number] 00:00:00 Test Item Value Reference Range Interpretation Comments HEMOGLOBIN A1c (test code = 22140) 6.6 % HEMOGLOBIN [id number] 00:00:00 Test Item Value Reference Range Interpretation Comments HEMOGLOBIN A1c (test code = 47172) 6.6 % LIPID [id number] 00:00:00 Test Item Value Reference Range Interpretation Comments CHOLESTEROL (test code = 2210) 261 MG/DL TRIGLYCERIDES (test code = 2232) 159 MG/DL HDL CHOLESTEROL (test code = 2220) 82 MG/DL CALC LDL CHOL (test code = 2237) 150 MG/DL RISK RATIO LDL/HDL (test code = 1.83 RATIO 2238) COMPREHENSIVE METABOLIC [id number] 00:00:00 Test Item Value Reference Range Interpretation Comments GLUCOSE (test code = 2217) 144 MG/DL BUN (test code = 2208) 15 MG/DL CREATININE (test code = 2214) 0.85 MG/DL eGFR AMER. (test code 87 ML/MIN/1.73 = 34520) eGFR NON- AMER. (test 75 ML/MIN/1.73 code = 51631) CALC BUN/CREAT (test code = 18 RATIO [...] THYROX. BIND. CAPAC. (test code 1.1 = 31279) T4 (THYROXINE) (test code = 4.3 UG/DL 2819) CORRECTED T4 (FTI) (test code = 3.9 UG/DL 2820) TSH, THIRD GENERATION (test 18.900 UIU/ML code = 2821) HEMOGLOBIN [id number] 00:00:00 Test Item Value Reference Range Interpretation Comments HEMOGLOBIN A1c (test code = 48643) 6.6 % HEMOGLOBIN [id number] 00:00:00 Test Item Value Reference Range Interpretation Comments HEMOGLOBIN A1c (test code = 13256) 6.6 % HEMOGLOBIN [id number] 00:00:00 Test Item Value Reference Range Interpretation Comments HEMOGLOBIN A1c (test code = 52511) 6.6 % LIPID [id number] 00:00:00 Test Item Value Reference Range Interpretation Comments CHOLESTEROL (test code = 2210) 261 MG/DL TRIGLYCERIDES (test code = 2232) 159 MG/DL HDL CHOLESTEROL (test code = 2220) 82 MG/DL CALC LDL CHOL (test code = 2237) 150 MG/DL RISK RATIO LDL/HDL (test code = 1.83 RATIO 2238) LIPID [id number] 00:00:00 Test Item Value Reference Range Interpretation Comments CHOLESTEROL (test code = 2210) 261 MG/DL TRIGLYCERIDES (test code = 2232) 159 MG/DL HDL CHOLESTEROL (test code = 2220) 82 MG/DL CALC LDL CHOL (test code = 2237) 150 MG/DL RISK RATIO LDL/HDL (test code = 1.83 RATIO 2238) COMPREHENSIVE METABOLIC [id number] 00:00:00 Test Item Value Reference Range Interpretation Comments GLUCOSE (test code = 2217) 144 MG/DL BUN (test code = 2208) 15 MG/DL CREATININE (test code = 2214) 0.85 MG/DL eGFR AMER. (test code 87 ML/MIN/1.73 = 82514) eGFR NON- AMER. (test 75 ML/MIN/1.73 code = 82144) CALC BUN/CREAT (test code = 18 RATIO [...] code = 2219) 50 U/L COMPREHENSIVE METABOLIC [id number] 00:00:00 Test Item Value Reference Range Interpretation Comments GLUCOSE (test code = 2217) 144 MG/DL BUN (test code = 2208) 15 MG/DL CREATININE (test code = 2214) 0.85 MG/DL eGFR AMER. (test code 87 ML/MIN/1.73 = 84883) eGFR NON- AMER. (test 75 ML/MIN/1.73 code = 42783) CALC BUN/CREAT (test code = 18 RATIO [...] THYROX. BIND. CAPAC. (test code 1.1 = 77688) T4 (THYROXINE) (test code = 4.3 UG/DL 2818) CORRECTED T4 (FTI) (test code = 3.9 UG/DL 2820) TSH, THIRD GENERATION (test 18.900 UIU/ML code = 2821) THYROID II PROFILE (T3U, T4, T7, TSH)2020-05-23 00:00:00 Test Item Value Reference Range Interpretation Comments T-UPTAKE (test code = 2817) 30.2 % THYROX. BIND. CAPAC. (test code 1.1 = 55650) T4 (THYROXINE) (test code = 4.3 UG/DL 2819) CORRECTED T4 (FTI) (test code = 3.9 UG/DL 2820) TSH, THIRD GENERATION (test 18.900 UIU/ML code = 2821) HEMOGLOBIN [id number] 00:00:00 Test Item Value Reference Range Interpretation Comments HEMOGLOBIN A1c (test code = 69973) 6.7 % HEMOGLOBIN [id number] 00:00:00 Test Item Value Reference Range Interpretation Comments HEMOGLOBIN A1c (test code = 29607) 6.7 % HEMOGLOBIN [id number] 00:00:00 Test Item Value Reference Range Interpretation Comments HEMOGLOBIN A1c (test code = 94533) 6.7 % LIPID [id number] 00:00:00 Test Item Value Reference Range Interpretation Comments CHOLESTEROL (test code = 2210) 267 MG/DL TRIGLYCERIDES (test code = 2232) 137 MG/DL HDL CHOLESTEROL (test code = 2220) 48 MG/DL CALC LDL CHOL (test code = 2237) 192 MG/DL RISK RATIO LDL/HDL (test code = 4.00 RATIO 2238) LIPID [id number] 00:00:00 Test Item Value Reference Range Interpretation Comments CHOLESTEROL (test code = 2210) 267 MG/DL TRIGLYCERIDES (test code = 2232) 137 MG/DL HDL CHOLESTEROL (test code = 2220) 48 MG/DL CALC LDL CHOL (test code = 2237) 192 MG/DL RISK RATIO LDL/HDL (test code = 4.00 RATIO 2238) COMPREHENSIVE METABOLIC [id number] 00:00:00 Test Item Value Reference Range Interpretation Comments GLUCOSE (test code = 2217) 155 MG/DL BUN (test code = 2208) 14 MG/DL CREATININE (test code = 2214) 0.52 MG/DL eGFR AMER. (test code 122 ML/MIN/1.73 = 09319) eGFR NON- AMER. (test 105 ML/MIN/1.73 code = 27343) CALC BUN/CREAT (test code = 27 RATIO [...] code = 2219) 27 U/L COMPREHENSIVE METABOLIC [id number] 00:00:00 Test Item Value Reference Range Interpretation Comments GLUCOSE (test code = 2217) 155 MG/DL BUN (test code = 2208) 14 MG/DL CREATININE (test code = 2214) 0.52 MG/DL eGFR AMER. (test code 122 ML/MIN/1.73 = 79046) eGFR NON- AMER. (test 105 ML/MIN/1.73 code = 15569) CALC BUN/CREAT (test code = 27 RATIO [...] THYROX. BIND. CAPAC. (test code 1.0 = 10003) T4 (THYROXINE) (test code = 4.7 UG/DL 2819) CORRECTED T4 (FTI) (test code = 4.7 UG/DL 2820) TSH, THIRD GENERATION (test code 0.201 UIU/ML = 2821) THYROID II PROFILE (T3U, T4, T7, TSH)2019 00:00:00 Test Item Value Reference Range Interpretation Comments T-UPTAKE (test code = 2817) 33.1 % THYROX. BIND. CAPAC. (test code 1.0 = 65819) T4 (THYROXINE) (test code = 4.7 UG/DL 2819) CORRECTED T4 (FTI) (test code = 4.7 UG/DL 2820) TSH, THIRD GENERATION (test code 0.201 UIU/ML = 2821) HEMOGLOBIN [id number] 00:00:00 Test Item Value Reference Range Interpretation Comments HEMOGLOBIN A1c (test code = 90911) 6.7 % HEMOGLOBIN [id number] 00:00:00 Test Item Value Reference Range Interpretation Comments HEMOGLOBIN A1c (test code = 39911) 6.7 % HEMOGLOBIN [id number] 00:00:00 Test Item Value Reference Range Interpretation Comments HEMOGLOBIN A1c (test code = 12435) 6.7 % LIPID [id number] 00:00:00 Test Item Value Reference Range Interpretation Comments CHOLESTEROL (test code = 2210) 267 MG/DL TRIGLYCERIDES (test code = 2232) 137 MG/DL HDL CHOLESTEROL (test code = 2220) 48 MG/DL CALC LDL CHOL (test code = 2237) 192 MG/DL RISK RATIO LDL/HDL (test code = 4.00 RATIO 2238) LIPID [id number] 00:00:00 Test Item Value Reference Range Interpretation Comments CHOLESTEROL (test code = 2210) 267 MG/DL TRIGLYCERIDES (test code = 2232) 137 MG/DL HDL CHOLESTEROL (test code = 2220) 48 MG/DL CALC LDL CHOL (test code = 2237) 192 MG/DL RISK RATIO LDL/HDL (test code = 4.00 RATIO 2238) COMPREHENSIVE METABOLIC [id number] 00:00:00 Test Item Value Reference Range Interpretation Comments GLUCOSE (test code = 2217) 155 MG/DL BUN (test code = 2208) 14 MG/DL CREATININE (test code = 2214) 0.52 MG/DL eGFR AMER. (test code 122 ML/MIN/1.73 = 87894) eGFR NON- AMER. (test 105 ML/MIN/1.73 code = 94207) CALC BUN/CREAT (test code = 27 RATIO [...] code = 2219) 27 U/L COMPREHENSIVE METABOLIC [id number] 00:00:00 Test Item Value Reference Range Interpretation Comments GLUCOSE (test code = 2217) 155 MG/DL BUN (test code = 2208) 14 MG/DL CREATININE (test code = 2214) 0.52 MG/DL eGFR AMER. (test code 122 ML/MIN/1.73 = 27750) eGFR NON- AMER. (test 105 ML/MIN/1.73 code = 13072) CALC BUN/CREAT (test code = 27 RATIO [...] THYROX. BIND. CAPAC. (test code 1.0 = 54842) T4 (THYROXINE) (test code = 4.7 UG/DL 2819) CORRECTED T4 (FTI) (test code = 4.7 UG/DL 2820) TSH, THIRD GENERATION (test code 0.201 UIU/ML = 2821) THYROID II PROFILE (T3U, T4, T7, TSH)2019 00:00:00 Test Item Value Reference Range Interpretation Comments T-UPTAKE (test code = 7) 33.1 % THYROX. BIND. CAPAC. (test code 1.0 = 38835) T4 (THYROXINE) (test code = 4.7 UG/DL 2819) CORRECTED T4 (FTI) (test code = 4.7 UG/DL 2820) TSH, THIRD GENERATION (test code 0.201 UIU/ML = 2821) HEMOGLOBIN [id number] 00:00:00 Test Item Value Reference Range Interpretation Comments HEMOGLOBIN A1c (test code = 44120) 6.7 % HEMOGLOBIN [id number] 00:00:00 Test Item Value Reference Range Interpretation Comments HEMOGLOBIN A1c (test code = 92160) 6.7 % LIPID [id number] 00:00:00 Test Item Value Reference Range Interpretation Comments CHOLESTEROL (test code = 2210) 267 MG/DL TRIGLYCERIDES (test code = 2232) 137 MG/DL HDL CHOLESTEROL (test code = 2220) 48 MG/DL CALC LDL CHOL (test code = 2237) 192 MG/DL RISK RATIO LDL/HDL (test code = 4.00 RATIO 2238) COMPREHENSIVE METABOLIC [id number] 00:00:00 Test Item Value Reference Range Interpretation Comments GLUCOSE (test code = 2217) 155 MG/DL BUN (test code = 2208) 14 MG/DL CREATININE (test code = 2214) 0.52 MG/DL eGFR AMER. (test code 122 ML/MIN/1.73 = 78093) eGFR NON- AMER. (test 105 ML/MIN/1.73 code = 49613) CALC BUN/CREAT (test code = 27 RATIO [...] THYROX. BIND. CAPAC. (test code 1.0 = 43137) T4 (THYROXINE) (test code = 4.7 UG/DL 2819) CORRECTED T4 (FTI) (test code = 4.7 UG/DL 2820) TSH, THIRD GENERATION (test code 0.201 UIU/ML = 2821) HEMOGLOBIN [id number] 00:00:00 Test Item Value Reference Range Interpretation Comments HEMOGLOBIN A1c (test code = 33635) 6.7 % HEMOGLOBIN [id number] 00:00:00 Test Item Value Reference Range Interpretation Comments HEMOGLOBIN A1c (test code = 63933) 6.7 % HEMOGLOBIN [id number] 00:00:00 Test Item Value Reference Range Interpretation Comments HEMOGLOBIN A1c (test code = 25843) 6.7 % LIPID [id number] 00:00:00 Test Item Value Reference Range Interpretation Comments CHOLESTEROL (test code = 2210) 267 MG/DL TRIGLYCERIDES (test code = 2232) 137 MG/DL HDL CHOLESTEROL (test code = 2220) 48 MG/DL CALC LDL CHOL (test code = 2237) 192 MG/DL RISK RATIO LDL/HDL (test code = 4.00 RATIO 2238) LIPID [id number] 00:00:00 Test Item Value Reference Range Interpretation Comments CHOLESTEROL (test code = 2210) 267 MG/DL TRIGLYCERIDES (test code = 2232) 137 MG/DL HDL CHOLESTEROL (test code = 2220) 48 MG/DL CALC LDL CHOL (test code = 2237) 192 MG/DL RISK RATIO LDL/HDL (test code = 4.00 RATIO 2238) COMPREHENSIVE METABOLIC [id number] 00:00:00 Test Item Value Reference Range Interpretation Comments GLUCOSE (test code = 2217) 155 MG/DL BUN (test code = 2208) 14 MG/DL CREATININE (test code = 2214) 0.52 MG/DL eGFR AMER. (test code 122 ML/MIN/1.73 = 46664) eGFR NON- AMER. (test 105 ML/MIN/1.73 code = 43051) CALC BUN/CREAT (test code = 27 RATIO [...] code = 2219) 27 U/L COMPREHENSIVE METABOLIC [id number] 00:00:00 Test Item Value Reference Range Interpretation Comments GLUCOSE (test code = 2217) 155 MG/DL BUN (test code = 2208) 14 MG/DL CREATININE (test code = 2214) 0.52 MG/DL eGFR AMER. (test code 122 ML/MIN/1.73 = 75938) eGFR NON- AMER. (test 105 ML/MIN/1.73 code = 41054) CALC BUN/CREAT (test code = 27 RATIO [...] THYROX. BIND. CAPAC. (test code 1.0 = 98774) T4 (THYROXINE) (test code = 4.7 UG/DL 2819) CORRECTED T4 (FTI) (test code = 4.7 UG/DL 2820) TSH, THIRD GENERATION (test code 0.201 UIU/ML = 2821) THYROID II PROFILE (T3U, T4, T7, TSH)2019 00:00:00 Test Item Value Reference Range Interpretation Comments T-UPTAKE (test code = 2817) 33.1 % THYROX. BIND. CAPAC. (test code 1.0 = 48517) T4 (THYROXINE) (test code = 4.7 UG/DL 2819) CORRECTED T4 (FTI) (test code = 4.7 UG/DL 2820) TSH, THIRD GENERATION (test code 0.201 UIU/ML = 2821) SARS-CoV-2 (COVID-19) by RT-PCR (HIGH RISK)2019-09-18 00:00:00 Test Item Value Reference Range Interpretation Comments SARS-CoV-2 INTERPRETATION (test NEGATIVE code = 84294) SOURCE (test code = 66684) NOT SPECIFIED SARS-CoV-2 (COVID-19) by RT-PCR (HIGH RISK)2019-09-18 00:00:00 Test Item Value Reference Range Interpretation Comments SARS-CoV-2 INTERPRETATION (test NEGATIVE code = 23638) SOURCE (test code = 09950) NOT SPECIFIED SARS-CoV-2 (COVID-19) by RT-PCR (HIGH RISK)2019-09-18 00:00:00 Test Item Value Reference Range Interpretation Comments SARS-CoV-2 INTERPRETATION (test NEGATIVE code = 39348) SOURCE (test code = 26527) NOT SPECIFIED SARS-CoV-2 (COVID-19) by RT-PCR (HIGH RISK)2019-09-18 00:00:00 Test Item Value Reference Range Interpretation Comments SARS-CoV-2 INTERPRETATION (test NEGATIVE code = 05941) SOURCE (test code = 54486) NOT SPECIFIED SARS-CoV-2 (COVID-19) by RT-PCR (HIGH RISK)2019-09-18 00:00:00 Test Item Value Reference Range Interpretation Comments SARS-CoV-2 INTERPRETATION (test NEGATIVE code = 93946) SOURCE (test code = 31054) NOT SPECIFIED SARS-CoV-2 (COVID-19) by RT-PCR (HIGH RISK)2019-09-18 00:00:00 Test Item Value Reference Range Interpretation Comments SARS-CoV-2 INTERPRETATION (test NEGATIVE code = 30533) SOURCE (test code = 25287) NOT SPECIFIED SARS-CoV-2 (COVID-19) by RT-PCR (HIGH RISK)2019-09-18 00:00:00 Test Item Value Reference Range Interpretation Comments SARS-CoV-2 INTERPRETATION (test NEGATIVE code = 57903) SOURCE (test code = 35244) NOT SPECIFIED [id number] 00:00:00 Test Item Value Reference Range Interpretation Comments TSH, THIRD GENERATION (test code 2.490 UIU/ML = 2821) [id number] 00:00:00 Test Item Value Reference Range Interpretation Comments TSH, THIRD GENERATION (test code 2.490 UIU/ML = 2821) [id number] 00:00:00 Test Item Value Reference Range Interpretation Comments TSH, THIRD GENERATION (test code 2.490 UIU/ML = 2821) HEMOGLOBIN [id number] 00:00:00 Test Item Value Reference Range Interpretation Comments HEMOGLOBIN A1c (test code = 52044) 6.4 % HEMOGLOBIN [id number] 00:00:00 Test Item Value Reference Range Interpretation Comments HEMOGLOBIN A1c (test code = 39742) 6.4 % HEMOGLOBIN [id number] 00:00:00 Test Item Value Reference Range Interpretation Comments HEMOGLOBIN A1c (test code = 45777) 6.4 % COMPREHENSIVE METABOLIC [id number] 00:00:00 Test Item Value Reference Range Interpretation Comments GLUCOSE (test code = 2217) 206 MG/DL BUN (test code = 2208) 23 MG/DL CREATININE (test code = 2214) 0.67 MG/DL eGFR AMER. (test code 112 ML/MIN/1.73 = 80218) eGFR NON- AMER. (test 97 ML/MIN/1.73 code = 87350) CALC BUN/CREAT (test code = 34 RATIO [...] code = 2219) 25 U/L COMPREHENSIVE METABOLIC [id number] 00:00:00 Test Item Value Reference Range Interpretation Comments GLUCOSE (test code = 2217) 206 MG/DL BUN (test code = 2208) 23 MG/DL CREATININE (test code = 2214) 0.67 MG/DL eGFR AMER. (test code 112 ML/MIN/1.73 = 73297) eGFR NON- AMER. (test 97 ML/MIN/1.73 code [...] ALT (test code = 2219) 25 U/L [id number] 00:00:00 Test Item Value Reference Range Interpretation Comments TSH, THIRD GENERATION (test code 2.490 UIU/ML = 2821) [id number] 00:00:00 Test Item Value Reference Range Interpretation Comments TSH, THIRD GENERATION (test code 2.490 UIU/ML = 2821) [id number] 00:00:00 Test Item Value Reference Range Interpretation Comments TSH, THIRD GENERATION (test code 2.490 UIU/ML = 2821) HEMOGLOBIN [id number] 00:00:00 Test Item Value Reference Range Interpretation Comments HEMOGLOBIN A1c (test code = 64150) 6.4 % HEMOGLOBIN [id number] 00:00:00 Test Item Value Reference Range Interpretation Comments HEMOGLOBIN A1c (test code = 37951) 6.4 % HEMOGLOBIN [id number] 00:00:00 Test Item Value Reference Range Interpretation Comments HEMOGLOBIN A1c (test code = 90649) 6.4 % COMPREHENSIVE METABOLIC [id number] 00:00:00 Test Item Value Reference Range Interpretation Comments GLUCOSE (test code = 2217) 206 MG/DL BUN (test code = 2208) 23 MG/DL CREATININE (test code = 2214) 0.67 MG/DL eGFR AMER. (test code 112 ML/MIN/1.73 = 16413) eGFR NON- AMER. (test 97 ML/MIN/1.73 code = 21704) CALC BUN/CREAT (test code = 34 RATIO [...] code = 2219) 25 U/L COMPREHENSIVE METABOLIC [id number] 00:00:00 Test Item Value Reference Range Interpretation Comments GLUCOSE (test code = 2217) 206 MG/DL BUN (test code = 2208) 23 MG/DL CREATININE (test code = 2214) 0.67 MG/DL eGFR AMER. (test code 112 ML/MIN/1.73 = 36486) eGFR NON- AMER. (test 97 ML/MIN/1.73 code = 10589) CALC BUN/CREAT (test code = 34 RATIO [...] ALT (test code = 2219) 25 U/L [id number] 00:00:00 Test Item Value Reference Range Interpretation Comments TSH, THIRD GENERATION (test code 2.490 UIU/ML = 2821) [id number] 00:00:00 Test Item Value Reference Range Interpretation Comments TSH, THIRD GENERATION (test code 2.490 UIU/ML = 2821) HEMOGLOBIN [id number] 00:00:00 Test Item Value Reference Range Interpretation Comments HEMOGLOBIN A1c (test code = 54354) 6.4 % HEMOGLOBIN [id number] 00:00:00 Test Item Value Reference Range Interpretation Comments HEMOGLOBIN A1c (test code = 08949) 6.4 % COMPREHENSIVE METABOLIC [id number] 00:00:00 Test Item Value Reference Range Interpretation Comments GLUCOSE (test code = 2217) 206 MG/DL BUN (test code = 2208) 23 MG/DL CREATININE (test code = 2214) 0.67 MG/DL eGFR AMER. (test code 112 ML/MIN/1.73 = 62094) eGFR NON- AMER. (test 97 ML/MIN/1.73 code = 97300) CALC BUN/CREAT (test code = 34 RATIO [...] ALT (test code = 2219) 25 U/L [id number] 00:00:00 Test Item Value Reference Range Interpretation Comments TSH, THIRD GENERATION (test code 2.490 UIU/ML = 2821) [id number] 00:00:00 Test Item Value Reference Range Interpretation Comments TSH, THIRD GENERATION (test code 2.490 UIU/ML = 2821) [id number] 00:00:00 Test Item Value Reference Range Interpretation Comments TSH, THIRD GENERATION (test code 2.490 UIU/ML = 2821) HEMOGLOBIN [id number] 00:00:00 Test Item Value Reference Range Interpretation Comments HEMOGLOBIN A1c (test code = 30497) 6.4 % HEMOGLOBIN [id number] 00:00:00 Test Item Value Reference Range Interpretation Comments HEMOGLOBIN A1c (test code = 37895) 6.4 % HEMOGLOBIN [id number] 00:00:00 Test Item Value Reference Range Interpretation Comments HEMOGLOBIN A1c (test code = 69412) 6.4 % COMPREHENSIVE METABOLIC [id number] 00:00:00 Test Item Value Reference Range Interpretation Comments GLUCOSE (test code = 2217) 206 MG/DL BUN (test code = 2208) 23 MG/DL CREATININE (test code = 2214) 0.67 MG/DL eGFR AMER. (test code 112 ML/MIN/1.73 = 98772) eGFR NON- AMER. (test 97 ML/MIN/1.73 code = 85041) CALC BUN/CREAT (test code = 34 RATIO [...] code = 2219) 25 U/L COMPREHENSIVE METABOLIC [id number] 00:00:00 Test Item Value Reference Range Interpretation Comments GLUCOSE (test code = 2217) 206 MG/DL BUN (test code = 2208) 23 MG/DL CREATININE (test code = 2214) 0.67 MG/DL eGFR AMER. (test code 112 ML/MIN/1.73 = 98611) eGFR NON- AMER. (test 97 ML/MIN/1.73 code = 06455) CALC BUN/CREAT (test code = 34 RATIO [...] = 2219) 25 U/L VAGINAL PATHOGENS DNA [id number] 00:00:00 Test Item Value Reference Range Interpretation Comments MARK SPECIES (test code = 30278) NEGATIVE G. VAGINALIS (test code = 61698) NEGATIVE T. VAGINALIS (test code = 52543) NEGATIVE VAGINAL PATHOGENS DNA [id number] 00:00:00 Test Item Value Reference Range Interpretation Comments MARK SPECIES (test code = 59109) NEGATIVE G. VAGINALIS (test code = 92668) NEGATIVE T. VAGINALIS (test code = 25174) NEGATIVE VAGINAL PATHOGENS DNA [id number] 00:00:00 Test Item Value Reference Range Interpretation Comments MARK SPECIES (test code = 03569) NEGATIVE G. VAGINALIS (test code = 08609) NEGATIVE T. VAGINALIS (test code = 66251) NEGATIVE VAGINAL PATHOGENS DNA [id number] 00:00:00 Test Item Value Reference Range Interpretation Comments MARK SPECIES (test code = 62267) NEGATIVE G. VAGINALIS (test code = 09988) NEGATIVE T. VAGINALIS (test code = 47941) NEGATIVE VAGINAL PATHOGENS DNA [id number] 00:00:00 Test Item Value Reference Range Interpretation Comments MARK SPECIES (test code = 68980) NEGATIVE G. VAGINALIS (test code = 63140) NEGATIVE T. VAGINALIS (test code = 60346) NEGATIVE VAGINAL PATHOGENS DNA [id number] 00:00:00 Test Item Value Reference Range Interpretation Comments MARK SPECIES (test code = ) NEGATIVE G. VAGINALIS (test code = 25624) NEGATIVE T. VAGINALIS (test code = 87949) NEGATIVE VAGINAL PATHOGENS DNA [id number] 00:00:00 Test Item Value Reference Range Interpretation Comments MARK SPECIES (test code = ) NEGATIVE G. VAGINALIS (test code = 94854) NEGATIVE T. VAGINALIS (test code = 55245) NEGATIVE HEMOGLOBIN A1c [ADDED]2018-12-01 00:00:00 Test Item Value Reference Range Interpretation Comments HEMOGLOBIN A1c (test code = 65873) 6.7 % HEMOGLOBIN A1c [ADDED]2018-12-01 00:00:00 Test Item Value Reference Range Interpretation Comments HEMOGLOBIN A1c (test code = 06189) 6.7 % HEMOGLOBIN A1c [ADDED]2018-12-01 00:00:00 Test Item Value Reference Range Interpretation Comments HEMOGLOBIN A1c (test code = 15596) 6.7 % COMPREHENSIVE METABOLIC PANEL [ADDED]2018-12-01 00:00:00 Test Item Value Reference Range Interpretation Comments GLUCOSE (test code = 2217) 136 MG/DL BUN (test code = 2208) 15 MG/DL CREATININE (test code = 2214) 0.64 MG/DL eGFR AMER. (test code 115 ML/MIN/1.73 = 61246) eGFR NON- AMER. (test 99 ML/MIN/1.73 code = 50149) CALC BUN/CREAT (test code = 23 RATIO [...] eGFR AMER. (test code 115 ML/MIN/1.73 = 72088) eGFR NON- AMER. (test 99 ML/MIN/1.73 code = 87798) CALC BUN/CREAT (test code = 23 RATIO [...] Interpretation Comments HEMOGLOBIN A1c (test code = 63353) 6.7 % HEMOGLOBIN A1c [ADDED]2018-12-01 00:00:00 Test Item Value Reference Range Interpretation Comments HEMOGLOBIN A1c (test code = 01399) 6.7 % HEMOGLOBIN A1c [ADDED]2018-12-01 00:00:00 Test Item Value Reference Range Interpretation Comments HEMOGLOBIN A1c (test code = 53949) 6.7 % COMPREHENSIVE METABOLIC PANEL [ADDED]2018-12-01 00:00:00 Test Item Value Reference Range Interpretation Comments GLUCOSE (test code = 2217) 136 MG/DL BUN (test code = 2208) 15 MG/DL CREATININE (test code = 2214) 0.64 MG/DL eGFR AMER. (test code 115 ML/MIN/1.73 = 28318) eGFR NON- AMER. (test 99 ML/MIN/1.73 code = 86410) CALC BUN/CREAT (test code = 23 RATIO [...] eGFR AMER. (test code 115 ML/MIN/1.73 = 16143) eGFR NON- AMER. (test 99 ML/MIN/1.73 code = 40218) CALC BUN/CREAT (test code = 23 RATIO [...] Interpretation Comments HEMOGLOBIN A1c (test code = 79349) 6.7 % HEMOGLOBIN A1c [ADDED]2018-12-01 00:00:00 Test Item Value Reference Range Interpretation Comments HEMOGLOBIN A1c (test code = 35552) 6.7 % COMPREHENSIVE METABOLIC PANEL [ADDED]2018-12-01 00:00:00 Test Item Value Reference Range Interpretation Comments GLUCOSE (test code = 2217) 136 MG/DL BUN (test code = 2208) 15 MG/DL CREATININE (test code = 2214) 0.64 MG/DL eGFR AMER. (test code 115 ML/MIN/1.73 = 71300) eGFR NON- AMER. (test 99 ML/MIN/1.73 code = 69352) CALC BUN/CREAT (test code = 23 RATIO [...] Interpretation Comments HEMOGLOBIN A1c (test code = 67440) 6.7 % HEMOGLOBIN A1c [ADDED]2018-12-01 00:00:00 Test Item Value Reference Range Interpretation Comments HEMOGLOBIN A1c (test code = 86387) 6.7 % HEMOGLOBIN A1c [ADDED]2018-12-01 00:00:00 Test Item Value Reference Range Interpretation Comments HEMOGLOBIN A1c (test code = 01788) 6.7 % COMPREHENSIVE METABOLIC PANEL [ADDED]2018-12-01 00:00:00 Test Item Value Reference Range Interpretation Comments GLUCOSE (test code = 2217) 136 MG/DL BUN (test code = 2208) 15 MG/DL CREATININE (test code = 2214) 0.64 MG/DL eGFR AMER. (test code 115 ML/MIN/1.73 = 45481) eGFR NON- AMER. (test 99 ML/MIN/1.73 code = 21977) CALC BUN/CREAT (test code = 23 RATIO [...] eGFR AMER. (test code 115 ML/MIN/1.73 = 82418) eGFR NON- AMER. (test 99 ML/MIN/1.73 code = 32382) CALC BUN/CREAT (test code = 23 RATIO [...] code 1.280 UIU/ML = 2821) CBC W/AUTO [id number] 00:00:00 Test Item Value Reference Range Interpretation [...] code = 1015) 346 K/UL CBC W/AUTO [id number] 00:00:00 Test Item Value Reference Range Interpretation [...] code = 1015) 346 K/UL CBC W/AUTO [id number] 00:00:00 Test Item Value Reference Range Interpretation [...] (test code = 1015) 346 K/UL HEMOGLOBIN [id number] 00:00:00 Test Item Value Reference Range Interpretation Comments HEMOGLOBIN A1c (test code = 88076) 5.9 % HEMOGLOBIN [id number] 00:00:00 Test Item Value Reference Range Interpretation Comments HEMOGLOBIN A1c (test code = 30487) 5.9 % HEMOGLOBIN [id number] 00:00:00 Test Item Value Reference Range Interpretation Comments HEMOGLOBIN A1c (test code = 38822) 5.9 % LIPID [id number] 00:00:00 Test Item Value Reference Range Interpretation Comments CHOLESTEROL (test code = 2210) 318 MG/DL TRIGLYCERIDES (test code = 2232) 263 MG/DL HDL CHOLESTEROL (test code = 2220) 51 MG/DL CALC LDL CHOL (test code = 2237) 214 MG/DL RISK RATIO LDL/HDL (test code = 4.20 RATIO 2238) LIPID [id number] 00:00:00 Test Item Value Reference Range Interpretation Comments CHOLESTEROL (test code = 2210) 318 MG/DL TRIGLYCERIDES (test code = 2232) 263 MG/DL HDL CHOLESTEROL (test code = 2220) 51 MG/DL CALC LDL CHOL (test code = 2237) 214 MG/DL RISK RATIO LDL/HDL (test code = 4.20 RATIO 2238) COMPREHENSIVE METABOLIC [id number] 00:00:00 Test Item Value Reference Range Interpretation Comments GLUCOSE (test code = 2217) 113 MG/DL BUN (test code = 2208) 18 MG/DL CREATININE (test code = 2214) 0.70 MG/DL eGFR AMER. (test code 111 ML/MIN/1.73 = 36578) eGFR NON- AMER. (test 96 ML/MIN/1.73 code = 44507) CALC BUN/CREAT (test code = 26 RATIO [...] code = 2219) 31 U/L COMPREHENSIVE METABOLIC [id number] 00:00:00 Test Item Value Reference Range Interpretation Comments GLUCOSE (test code = 2217) 113 MG/DL BUN (test code = 2208) 18 MG/DL CREATININE (test code = 2214) 0.70 MG/DL eGFR AMER. (test code 111 ML/MIN/1.73 = 31774) eGFR NON- AMER. (test 96 ML/MIN/1.73 code = 79649) CALC BUN/CREAT (test code = 26 RATIO [...] ALT (test code = 2219) 31 U/L [id number] 00:00:00 Test Item Value Reference Range Interpretation Comments TSH, THIRD GENERATION (test code 2.520 UIU/ML = 2821) [id number] 00:00:00 Test Item Value Reference Range Interpretation Comments TSH, THIRD GENERATION (test code 2.520 UIU/ML = 2821) [id number] 00:00:00 Test Item Value Reference Range Interpretation Comments TSH, THIRD GENERATION (test code 2.520 UIU/ML = 2821) CBC W/AUTO [id number] 00:00:00 Test Item Value Reference Range Interpretation [...] code = 1015) 346 K/UL CBC W/AUTO [id number] 00:00:00 Test Item Value Reference Range Interpretation [...] code = 1015) 346 K/UL CBC W/AUTO [id number] 00:00:00 Test Item Value Reference Range Interpretation [...] (test code = 1015) 346 K/UL HEMOGLOBIN [id number] 00:00:00 Test Item Value Reference Range Interpretation Comments HEMOGLOBIN A1c (test code = 34585) 5.9 % HEMOGLOBIN [id number] 00:00:00 Test Item Value Reference Range Interpretation Comments HEMOGLOBIN A1c (test code = 32729) 5.9 % HEMOGLOBIN [id number] 00:00:00 Test Item Value Reference Range Interpretation Comments HEMOGLOBIN A1c (test code = 44662) 5.9 % LIPID [id number] 00:00:00 Test Item Value Reference Range Interpretation Comments CHOLESTEROL (test code = 2210) 318 MG/DL TRIGLYCERIDES (test code = 2232) 263 MG/DL HDL CHOLESTEROL (test code = 2220) 51 MG/DL CALC LDL CHOL (test code = 2237) 214 MG/DL RISK RATIO LDL/HDL (test code = 4.20 RATIO 2238) LIPID [id number] 00:00:00 Test Item Value Reference Range Interpretation Comments CHOLESTEROL (test code = 2210) 318 MG/DL TRIGLYCERIDES (test code = 2232) 263 MG/DL HDL CHOLESTEROL (test code = 2220) 51 MG/DL CALC LDL CHOL (test code = 2237) 214 MG/DL RISK RATIO LDL/HDL (test code = 4.20 RATIO 2238) COMPREHENSIVE METABOLIC [id number] 00:00:00 Test Item Value Reference Range Interpretation Comments GLUCOSE (test code = 2217) 113 MG/DL BUN (test code = 2208) 18 MG/DL CREATININE (test code = 2214) 0.70 MG/DL eGFR AMER. (test code 111 ML/MIN/1.73 = 90559) eGFR NON- AMER. (test 96 ML/MIN/1.73 code = 94723) CALC BUN/CREAT (test code = 26 RATIO [...] code = 2219) 31 U/L COMPREHENSIVE METABOLIC [id number] 00:00:00 Test Item Value Reference Range Interpretation Comments GLUCOSE (test code = 2217) 113 MG/DL BUN (test code = 2208) 18 MG/DL CREATININE (test code = 2214) 0.70 MG/DL eGFR AMER. (test code 111 ML/MIN/1.73 = 32546) eGFR NON- AMER. (test 96 ML/MIN/1.73 code = 70389) CALC BUN/CREAT (test code = 26 RATIO [...] ALT (test code = 2219) 31 U/L [id number] 00:00:00 Test Item Value Reference Range Interpretation Comments TSH, THIRD GENERATION (test code 2.520 UIU/ML = 2821) [id number] 00:00:00 Test Item Value Reference Range Interpretation Comments TSH, THIRD GENERATION (test code 2.520 UIU/ML = 2821) [id number] 00:00:00 Test Item Value Reference Range Interpretation Comments TSH, THIRD GENERATION (test code 2.520 UIU/ML = 2821) CBC W/AUTO [id number] 00:00:00 Test Item Value Reference Range Interpretation [...] code = 1015) 346 K/UL CBC W/AUTO [id number] 00:00:00 Test Item Value Reference Range Interpretation [...] (test code = 1015) 346 K/UL HEMOGLOBIN [id number] 00:00:00 Test Item Value Reference Range Interpretation Comments HEMOGLOBIN A1c (test code = 93055) 5.9 % HEMOGLOBIN [id number] 00:00:00 Test Item Value Reference Range Interpretation Comments HEMOGLOBIN A1c (test code = 43269) 5.9 % LIPID [id number] 00:00:00 Test Item Value Reference Range Interpretation Comments CHOLESTEROL (test code = 2210) 318 MG/DL TRIGLYCERIDES (test code = 2232) 263 MG/DL HDL CHOLESTEROL (test code = 2220) 51 MG/DL CALC LDL CHOL (test code = 2237) 214 MG/DL RISK RATIO LDL/HDL (test code = 4.20 RATIO 2238) COMPREHENSIVE METABOLIC [id number] 00:00:00 Test Item Value Reference Range Interpretation Comments GLUCOSE (test code = 2217) 113 MG/DL BUN (test code = 2208) 18 MG/DL CREATININE (test code = 2214) 0.70 MG/DL eGFR AMER. (test code 111 ML/MIN/1.73 = 24354) eGFR NON- AMER. (test 96 ML/MIN/1.73 code = 31564) CALC BUN/CREAT (test code = 26 RATIO [...] ALT (test code = 2219) 31 U/L [id number] 00:00:00 Test Item Value Reference Range Interpretation Comments TSH, THIRD GENERATION (test code 2.520 UIU/ML = 2821) [id number] 00:00:00 Test Item Value Reference Range Interpretation Comments TSH, THIRD GENERATION (test code 2.520 UIU/ML = 2821) CBC W/AUTO [id number] 00:00:00 Test Item Value Reference Range Interpretation [...] code = 1015) 346 K/UL CBC W/AUTO [id number] 00:00:00 Test Item Value Reference Range Interpretation [...] code = 1015) 346 K/UL CBC W/AUTO [id number] 00:00:00 Test Item Value Reference Range Interpretation [...] (test code = 1015) 346 K/UL HEMOGLOBIN [id number] 00:00:00 Test Item Value Reference Range Interpretation Comments HEMOGLOBIN A1c (test code = 81598) 5.9 % HEMOGLOBIN [id number] 00:00:00 Test Item Value Reference Range Interpretation Comments HEMOGLOBIN A1c (test code = 28592) 5.9 % HEMOGLOBIN [id number] 00:00:00 Test Item Value Reference Range Interpretation Comments HEMOGLOBIN A1c (test code = 55261) 5.9 % LIPID [id number] 00:00:00 Test Item Value Reference Range Interpretation Comments CHOLESTEROL (test code = 2210) 318 MG/DL TRIGLYCERIDES (test code = 2232) 263 MG/DL HDL CHOLESTEROL (test code = 2220) 51 MG/DL CALC LDL CHOL (test code = 2237) 214 MG/DL RISK RATIO LDL/HDL (test code = 4.20 RATIO 2238) LIPID [id number] 00:00:00 Test Item Value Reference Range Interpretation Comments CHOLESTEROL (test code = 2210) 318 MG/DL TRIGLYCERIDES (test code = 2232) 263 MG/DL HDL CHOLESTEROL (test code = 2220) 51 MG/DL CALC LDL CHOL (test code = 2237) 214 MG/DL RISK RATIO LDL/HDL (test code = 4.20 RATIO 2238) COMPREHENSIVE METABOLIC [id number] 00:00:00 Test Item Value Reference Range Interpretation Comments GLUCOSE (test code = 2217) 113 MG/DL BUN (test code = 2208) 18 MG/DL CREATININE (test code = 2214) 0.70 MG/DL eGFR AMER. (test code 111 ML/MIN/1.73 = 45504) eGFR NON- AMER. (test 96 ML/MIN/1.73 code = 69213) CALC BUN/CREAT (test code = 26 RATIO [...] code = 2219) 31 U/L COMPREHENSIVE METABOLIC [id number] 00:00:00 Test Item Value Reference Range Interpretation Comments GLUCOSE (test code = 2217) 113 MG/DL BUN (test code = 2208) 18 MG/DL CREATININE (test code = 2214) 0.70 MG/DL eGFR AMER. (test code 111 ML/MIN/1.73 = 87220) eGFR NON- AMER. (test 96 ML/MIN/1.73 code = 48687) CALC BUN/CREAT (test code = 26 RATIO [...] ALT (test code = 2219) 31 U/L [id number] 00:00:00 Test Item Value Reference Range Interpretation Comments TSH, THIRD GENERATION (test code 2.520 UIU/ML = 2821) [id number] 00:00:00 Test Item Value Reference Range Interpretation Comments TSH, THIRD GENERATION (test code 2.520 UIU/ML = 2821) [id number] 00:00:00 Test Item Value Reference Range Interpretation Comments TSH, THIRD GENERATION (test code 2.520 UIU/ML = 2821) CULTURE, [id number] 00:00:00 Test Item Value Reference Range Interpretation Comments CULTURE, URINE (test SPECIMEN NUMBER: code = 64280) [id number] CULTURE, [id number] 00:00:00 Test Item Value Reference Range Interpretation Comments CULTURE, URINE (test SPECIMEN NUMBER: code = 90927) [id number] CULTURE, [id number] 00:00:00 Test Item Value Reference Range Interpretation Comments CULTURE, URINE (test SPECIMEN NUMBER: code = 30019) [id number] CULTURE, [id number] 00:00:00 Test Item Value Reference Range Interpretation Comments CULTURE, URINE (test SPECIMEN NUMBER: code = 72797) [id number] CULTURE, [id number] 00:00:00 Test Item Value Reference Range Interpretation Comments CULTURE, URINE (test SPECIMEN NUMBER: code = 68769) [id number] CULTURE, [id number] 00:00:00 Test Item Value Reference Range Interpretation Comments CULTURE, URINE (test SPECIMEN NUMBER: code = 95091) [id number] CULTURE, [id number] 00:00:00 Test Item Value Reference Range Interpretation Comments CULTURE, URINE (test SPECIMEN NUMBER: code = 59619) [id number] CULTURE, [id number] 00:00:00 Test Item Value Reference Range Interpretation Comments CULTURE, URINE (test SPECIMEN NUMBER: code = 88660) [id number] CULTURE, [id number] 00:00:00 Test Item Value Reference Range Interpretation Comments CULTURE, URINE (test SPECIMEN NUMBER: code = 43467) [id number] CULTURE, [id number] 00:00:00 Test Item Value Reference Range Interpretation Comments CULTURE, URINE (test SPECIMEN NUMBER: code = 82900) [id number] CULTURE, [id number] 00:00:00 Test Item Value Reference Range Interpretation Comments CULTURE, URINE (test SPECIMEN NUMBER: code = 23525) [id number] CULTURE, [id number] 00:00:00 Test Item Value Reference Range Interpretation Comments CULTURE, URINE (test SPECIMEN NUMBER: code = 02620) [id number] CULTURE, [id number] 00:00:00 Test Item Value Reference Range Interpretation Comments CULTURE, URINE (test SPECIMEN NUMBER: code = 74860) [id number] CULTURE, [id number] 00:00:00 Test Item Value Reference Range Interpretation Comments CULTURE, URINE (test SPECIMEN NUMBER: code = 55073) [id number] BASIC METABOLIC [id number] 00:00:00 Test Item Value Reference Range Interpretation Comments GLUCOSE (test code = 2217) 135 MG/DL BUN (test code = 2208) 25 MG/DL CREATININE (test code = 2214) 0.76 MG/DL eGFR AMER. (test code 101 ML/MIN/1.73 = 14031) eGFR NON- AMER. (test 87 ML/MIN/1.73 code = 07511) SODIUM (test code = 2231) 139 MEQ/L POTASSIUM (test code = 2228) 4.7 MEQ/L CHLORIDE (test code = 2215) 99 MEQ/L CARBON DIOXIDE (test code = 26 MEQ/L 2206) CALCIUM (test code = 2209) 9.4 MG/DL BASIC METABOLIC [id number] 00:00:00 Test Item Value Reference Range Interpretation Comments GLUCOSE (test code = 2217) 135 MG/DL BUN (test code = 2208) 25 MG/DL CREATININE (test code = 2214) 0.76 MG/DL eGFR AMER. (test code 101 ML/MIN/1.73 = 55864) eGFR NON- AMER. (test 87 ML/MIN/1.73 code = 49664) SODIUM (test code = 2231) 139 MEQ/L POTASSIUM (test code = 2228) 4.7 MEQ/L CHLORIDE (test code = 2215) 99 MEQ/L CARBON DIOXIDE (test code = 26 MEQ/L 2206) CALCIUM (test code = 2209) 9.4 MG/DL LIPID [id number] 00:00:00 Test Item Value Reference Range Interpretation Comments CHOLESTEROL (test code = 2210) 262 MG/DL TRIGLYCERIDES (test code = 2232) 300 MG/DL HDL CHOLESTEROL (test code = 2220) 36 MG/DL CALC LDL CHOL (test code = 2237) 166 MG/DL RISK RATIO LDL/HDL (test code = 4.61 RATIO 2238) LIPID [id number] 00:00:00 Test Item Value Reference Range Interpretation Comments CHOLESTEROL (test code = 2210) 262 MG/DL TRIGLYCERIDES (test code = 2232) 300 MG/DL HDL CHOLESTEROL (test code = 2220) 36 MG/DL CALC LDL CHOL (test code = 2237) 166 MG/DL RISK RATIO LDL/HDL (test code = 4.61 RATIO 2238) HEMOGLOBIN [id number] 00:00:00 Test Item Value Reference Range Interpretation Comments HEMOGLOBIN A1c (test code = 31417) 6.2 % HEMOGLOBIN [id number] 00:00:00 Test Item Value Reference Range Interpretation Comments HEMOGLOBIN A1c (test code = 70633) 6.2 % HEMOGLOBIN [id number] 00:00:00 Test Item Value Reference Range Interpretation Comments HEMOGLOBIN A1c (test code = 47851) 6.2 % [id number] 00:00:00 Test Item Value Reference Range Interpretation Comments TSH, THIRD GENERATION (test code 0.988 UIU/ML = 2821) [id number] 00:00:00 Test Item Value Reference Range Interpretation Comments TSH, THIRD GENERATION (test code 0.988 UIU/ML = 2821) [id number] 00:00:00 Test Item Value Reference Range Interpretation Comments TSH, THIRD GENERATION (test code 0.988 UIU/ML = 2821) BASIC METABOLIC [id number] 00:00:00 Test Item Value Reference Range Interpretation Comments GLUCOSE (test code = 2217) 135 MG/DL BUN (test code = 2208) 25 MG/DL CREATININE (test code = 2214) 0.76 MG/DL eGFR AMER. (test code 101 ML/MIN/1.73 = 19166) eGFR NON- AMER. (test 87 ML/MIN/1.73 code = 32114) SODIUM (test code = 2231) 139 MEQ/L POTASSIUM (test code = 2228) 4.7 MEQ/L CHLORIDE (test code = 2215) 99 MEQ/L CARBON DIOXIDE (test code = 26 MEQ/L 2206) CALCIUM (test code = 2209) 9.4 MG/DL BASIC METABOLIC [id number] 00:00:00 Test Item Value Reference Range Interpretation Comments GLUCOSE (test code = 2217) 135 MG/DL BUN (test code = 2208) 25 MG/DL CREATININE (test code = 2214) 0.76 MG/DL eGFR AMER. (test code 101 ML/MIN/1.73 = 12758) eGFR NON- AMER. (test 87 ML/MIN/1.73 code = 80405) SODIUM (test code = 2231) 139 MEQ/L POTASSIUM (test code = 2228) 4.7 MEQ/L CHLORIDE (test code = 2215) 99 MEQ/L CARBON DIOXIDE (test code = 26 MEQ/L 2206) CALCIUM (test code = 2209) 9.4 MG/DL LIPID [id number] 00:00:00 Test Item Value Reference Range Interpretation Comments CHOLESTEROL (test code = 2210) 262 MG/DL TRIGLYCERIDES (test code = 2232) 300 MG/DL HDL CHOLESTEROL (test code = 2220) 36 MG/DL CALC LDL CHOL (test code = 2237) 166 MG/DL RISK RATIO LDL/HDL (test code = 4.61 RATIO 2238) LIPID [id number] 00:00:00 Test Item Value Reference Range Interpretation Comments CHOLESTEROL (test code = 2210) 262 MG/DL TRIGLYCERIDES (test code = 2232) 300 MG/DL HDL CHOLESTEROL (test code = 2220) 36 MG/DL CALC LDL CHOL (test code = 2237) 166 MG/DL RISK RATIO LDL/HDL (test code = 4.61 RATIO 2238) HEMOGLOBIN [id number] 00:00:00 Test Item Value Reference Range Interpretation Comments HEMOGLOBIN A1c (test code = 38039) 6.2 % HEMOGLOBIN [id number] 00:00:00 Test Item Value Reference Range Interpretation Comments HEMOGLOBIN A1c (test code = 20585) 6.2 % HEMOGLOBIN [id number] 00:00:00 Test Item Value Reference Range Interpretation Comments HEMOGLOBIN A1c (test code = 70354) 6.2 % [id number] 00:00:00 Test Item Value Reference Range Interpretation Comments TSH, THIRD GENERATION (test code 0.988 UIU/ML = 2821) [id number] 00:00:00 Test Item Value Reference Range Interpretation Comments TSH, THIRD GENERATION (test code 0.988 UIU/ML = 2821) [id number] 00:00:00 Test Item Value Reference Range Interpretation Comments TSH, THIRD GENERATION (test code 0.988 UIU/ML = 2821) BASIC METABOLIC [id number] 00:00:00 Test Item Value Reference Range Interpretation Comments GLUCOSE (test code = 2217) 135 MG/DL BUN (test code = 2208) 25 MG/DL CREATININE (test code = 2214) 0.76 MG/DL eGFR AMER. (test code 101 ML/MIN/1.73 = 10109) eGFR NON- AMER. (test 87 ML/MIN/1.73 code = 01086) SODIUM (test code = 2231) 139 MEQ/L POTASSIUM (test code = 2228) 4.7 MEQ/L CHLORIDE (test code = 2215) 99 MEQ/L CARBON DIOXIDE (test code = 26 MEQ/L 2206) CALCIUM (test code = 2209) 9.4 MG/DL LIPID [id number] 00:00:00 Test Item Value Reference Range Interpretation Comments CHOLESTEROL (test code = 2210) 262 MG/DL TRIGLYCERIDES (test code = 2232) 300 MG/DL HDL CHOLESTEROL (test code = 2220) 36 MG/DL CALC LDL CHOL (test code = 2237) 166 MG/DL RISK RATIO LDL/HDL (test code = 4.61 RATIO 2238) HEMOGLOBIN [id number] 00:00:00 Test Item Value Reference Range Interpretation Comments HEMOGLOBIN A1c (test code = 04643) 6.2 % HEMOGLOBIN [id number] 00:00:00 Test Item Value Reference Range Interpretation Comments HEMOGLOBIN A1c (test code = 26639) 6.2 % [id number] 00:00:00 Test Item Value Reference Range Interpretation Comments TSH, THIRD GENERATION (test code 0.988 UIU/ML = 2821) [id number] 00:00:00 Test Item Value Reference Range Interpretation Comments TSH, THIRD GENERATION (test code 0.988 UIU/ML = 2821) BASIC METABOLIC [id number] 00:00:00 Test Item Value Reference Range Interpretation Comments GLUCOSE (test code = 2217) 135 MG/DL BUN (test code = 2208) 25 MG/DL CREATININE (test code = 2214) 0.76 MG/DL eGFR AMER. (test code 101 ML/MIN/1.73 = 58695) eGFR NON- AMER. (test 87 ML/MIN/1.73 code = 81740) SODIUM (test code = 2231) 139 MEQ/L POTASSIUM (test code = 2228) 4.7 MEQ/L CHLORIDE (test code = 2215) 99 MEQ/L CARBON DIOXIDE (test code = 26 MEQ/L 2206) CALCIUM (test code = 2209) 9.4 MG/DL BASIC METABOLIC [id number] 00:00:00 Test Item Value Reference Range Interpretation Comments GLUCOSE (test code = 2217) 135 MG/DL BUN (test code = 2208) 25 MG/DL CREATININE (test code = 2214) 0.76 MG/DL eGFR AMER. (test code 101 ML/MIN/1.73 = 94027) eGFR NON- AMER. (test 87 ML/MIN/1.73 code = 37310) SODIUM (test code = 2231) 139 MEQ/L POTASSIUM (test code = 2228) 4.7 MEQ/L CHLORIDE (test code = 2215) 99 MEQ/L CARBON DIOXIDE (test code = 26 MEQ/L 2206) CALCIUM (test code = 2209) 9.4 MG/DL LIPID [id number] 00:00:00 Test Item Value Reference Range Interpretation Comments CHOLESTEROL (test code = 2210) 262 MG/DL TRIGLYCERIDES (test code = 2232) 300 MG/DL HDL CHOLESTEROL (test code = 2220) 36 MG/DL CALC LDL CHOL (test code = 2237) 166 MG/DL RISK RATIO LDL/HDL (test code = 4.61 RATIO 2238) LIPID [id number] 00:00:00 Test Item Value Reference Range Interpretation Comments CHOLESTEROL (test code = 2210) 262 MG/DL TRIGLYCERIDES (test code = 2232) 300 MG/DL HDL CHOLESTEROL (test code = 2220) 36 MG/DL CALC LDL CHOL (test code = 2237) 166 MG/DL RISK RATIO LDL/HDL (test code = 4.61 RATIO 2238) HEMOGLOBIN [id number] 00:00:00 Test Item Value Reference Range Interpretation Comments HEMOGLOBIN A1c (test code = 48335) 6.2 % HEMOGLOBIN [id number] 00:00:00 Test Item Value Reference Range Interpretation Comments HEMOGLOBIN A1c (test code = 66449) 6.2 % HEMOGLOBIN [id number] 00:00:00 Test Item Value Reference Range Interpretation Comments HEMOGLOBIN A1c (test code = 30567) 6.2 % [id number] 00:00:00 Test Item Value Reference Range Interpretation Comments TSH, THIRD GENERATION (test code 0.988 UIU/ML = 2821) [id number] 00:00:00 Test Item Value Reference Range Interpretation Comments TSH, THIRD GENERATION (test code 0.988 UIU/ML = 2821) [id number] 00:00:00 Test Item Value Reference Range Interpretation Comments TSH, THIRD GENERATION (test code 0.988 UIU/ML = 2821) COMPREHENSIVE METABOLIC [id number] 00:00:00 Test Item Value Reference Range Interpretation Comments GLUCOSE (test code = 2217) 109 MG/DL BUN (test code = 2208) 25 MG/DL CREATININE (test code = 2214) 0.78 MG/DL eGFR AMER. (test code 98 ML/MIN/1.73 = 63656) eGFR NON- AMER. (test 84 ML/MIN/1.73 code = 21089) CALC BUN/CREAT (test code = 32 RATIO [...] code = 2219) 25 U/L COMPREHENSIVE METABOLIC [id number] 00:00:00 Test Item Value Reference Range Interpretation Comments GLUCOSE (test code = 2217) 109 MG/DL BUN (test code = 2208) 25 MG/DL CREATININE (test code = 2214) 0.78 MG/DL eGFR AMER. (test code 98 ML/MIN/1.73 = 20584) eGFR NON- AMER. (test 84 ML/MIN/1.73 code = 55903) CALC BUN/CREAT (test code = 32 RATIO [...] (test code = 2219) 25 U/L LIPID [id number] 00:00:00 Test Item Value Reference Range Interpretation Comments CHOLESTEROL (test code = 2210) 295 MG/DL TRIGLYCERIDES (test code = 2232) 218 MG/DL HDL CHOLESTEROL (test code = 2220) 46 MG/DL CALC LDL CHOL (test code = 2237) 205 MG/DL RISK RATIO LDL/HDL (test code = 4.47 RATIO 2238) LIPID [id number] 00:00:00 Test Item Value Reference Range Interpretation Comments CHOLESTEROL (test code = 2210) 295 MG/DL TRIGLYCERIDES (test code = 2232) 218 MG/DL HDL CHOLESTEROL (test code = 2220) 46 MG/DL CALC LDL CHOL (test code = 2237) 205 MG/DL RISK RATIO LDL/HDL (test code = 4.47 RATIO 2238) HEMOGLOBIN [id number] 00:00:00 Test Item Value Reference Range Interpretation Comments HEMOGLOBIN A1c (test code = 73463) 7.0 % HEMOGLOBIN [id number] 00:00:00 Test Item Value Reference Range Interpretation Comments HEMOGLOBIN A1c (test code = 84768) 7.0 % HEMOGLOBIN [id number] 00:00:00 Test Item Value Reference Range Interpretation Comments HEMOGLOBIN A1c (test code = 27518) 7.0 % [id number] 00:00:00 Test Item Value Reference Range Interpretation Comments TSH, THIRD GENERATION (test code 0.565 UIU/ML = 2821) [id number] 00:00:00 Test Item Value Reference Range Interpretation Comments TSH, THIRD GENERATION (test code 0.565 UIU/ML = 2821) [id number] 00:00:00 Test Item Value Reference Range Interpretation Comments TSH, THIRD GENERATION (test code 0.565 UIU/ML = 2821) COMPREHENSIVE METABOLIC [id number] 00:00:00 Test Item Value Reference Range Interpretation Comments GLUCOSE (test code = 2217) 109 MG/DL BUN (test code = 2208) 25 MG/DL CREATININE (test code = 2214) 0.78 MG/DL eGFR AMER. (test code 98 ML/MIN/1.73 = 49381) eGFR NON- AMER. (test 84 ML/MIN/1.73 code = 50676) CALC BUN/CREAT (test code = 32 RATIO [...] code = 2219) 25 U/L COMPREHENSIVE METABOLIC [id number] 00:00:00 Test Item Value Reference Range Interpretation Comments GLUCOSE (test code = 2217) 109 MG/DL BUN (test code = 2208) 25 MG/DL CREATININE (test code = 2214) 0.78 MG/DL eGFR AMER. (test code 98 ML/MIN/1.73 = 88979) eGFR NON- AMER. (test 84 ML/MIN/1.73 code = 27531) CALC BUN/CREAT (test code = 32 RATIO [...] (test code = 2219) 25 U/L LIPID [id number] 00:00:00 Test Item Value Reference Range Interpretation Comments CHOLESTEROL (test code = 2210) 295 MG/DL TRIGLYCERIDES (test code = 2232) 218 MG/DL HDL CHOLESTEROL (test code = 2220) 46 MG/DL CALC LDL CHOL (test code = 2237) 205 MG/DL RISK RATIO LDL/HDL (test code = 4.47 RATIO 2238) LIPID [id number] 00:00:00 Test Item Value Reference Range Interpretation Comments CHOLESTEROL (test code = 2210) 295 MG/DL TRIGLYCERIDES (test code = 2232) 218 MG/DL HDL CHOLESTEROL (test code = 2220) 46 MG/DL CALC LDL CHOL (test code = 2237) 205 MG/DL RISK RATIO LDL/HDL (test code = 4.47 RATIO 2238) HEMOGLOBIN [id number] 00:00:00 Test Item Value Reference Range Interpretation Comments HEMOGLOBIN A1c (test code = 18586) 7.0 % HEMOGLOBIN [id number] 00:00:00 Test Item Value Reference Range Interpretation Comments HEMOGLOBIN A1c (test code = 35327) 7.0 % HEMOGLOBIN [id number] 00:00:00 Test Item Value Reference Range Interpretation Comments HEMOGLOBIN A1c (test code = 73606) 7.0 % [id number] 00:00:00 Test Item Value Reference Range Interpretation Comments TSH, THIRD GENERATION (test code 0.565 UIU/ML = 2821) [id number] 00:00:00 Test Item Value Reference Range Interpretation Comments TSH, THIRD GENERATION (test code 0.565 UIU/ML = 2821) [id number] 00:00:00 Test Item Value Reference Range Interpretation Comments TSH, THIRD GENERATION (test code 0.565 UIU/ML = 2821) COMPREHENSIVE METABOLIC [id number] 00:00:00 Test Item Value Reference Range Interpretation Comments GLUCOSE (test code = 2217) 109 MG/DL BUN (test code = 2208) 25 MG/DL CREATININE (test code = 2214) 0.78 MG/DL eGFR AMER. (test code 98 ML/MIN/1.73 = 74986) eGFR NON- AMER. (test 84 ML/MIN/1.73 code = 23354) CALC BUN/CREAT (test code = 32 RATIO [...] (test code = 2219) 25 U/L LIPID [id number] 00:00:00 Test Item Value Reference Range Interpretation Comments CHOLESTEROL (test code = 2210) 295 MG/DL TRIGLYCERIDES (test code = 2232) 218 MG/DL HDL CHOLESTEROL (test code = 2220) 46 MG/DL CALC LDL CHOL (test code = 2237) 205 MG/DL RISK RATIO LDL/HDL (test code = 4.47 RATIO 2238) HEMOGLOBIN [id number] 00:00:00 Test Item Value Reference Range Interpretation Comments HEMOGLOBIN A1c (test code = 20681) 7.0 % HEMOGLOBIN [id number] 00:00:00 Test Item Value Reference Range Interpretation Comments HEMOGLOBIN A1c (test code = 01194) 7.0 % [id number] 00:00:00 Test Item Value Reference Range Interpretation Comments TSH, THIRD GENERATION (test code 0.565 UIU/ML = 2821) [id number] 00:00:00 Test Item Value Reference Range Interpretation Comments TSH, THIRD GENERATION (test code 0.565 UIU/ML = 2821) COMPREHENSIVE METABOLIC [id number] 00:00:00 Test Item Value Reference Range Interpretation Comments GLUCOSE (test code = 2217) 109 MG/DL BUN (test code = 2208) 25 MG/DL CREATININE (test code = 2214) 0.78 MG/DL eGFR AMER. (test code 98 ML/MIN/1.73 = 62915) eGFR NON- AMER. (test 84 ML/MIN/1.73 code = 03446) CALC BUN/CREAT (test code = 32 RATIO [...] code = 2219) 25 U/L COMPREHENSIVE METABOLIC [id number] 00:00:00 Test Item Value Reference Range Interpretation Comments GLUCOSE (test code = 2217) 109 MG/DL BUN (test code = 2208) 25 MG/DL CREATININE (test code = 2214) 0.78 MG/DL eGFR AMER. (test code 98 ML/MIN/1.73 = 16579) eGFR NON- AMER. (test 84 ML/MIN/1.73 code = 31599) CALC BUN/CREAT (test code = 32 RATIO [...] (test code = 2219) 25 U/L LIPID [id number] 00:00:00 Test Item Value Reference Range Interpretation Comments CHOLESTEROL (test code = 2210) 295 MG/DL TRIGLYCERIDES (test code = 2232) 218 MG/DL HDL CHOLESTEROL (test code = 2220) 46 MG/DL CALC LDL CHOL (test code = 2237) 205 MG/DL RISK RATIO LDL/HDL (test code = 4.47 RATIO 2238) LIPID [id number] 00:00:00 Test Item Value Reference Range Interpretation Comments CHOLESTEROL (test code = 2210) 295 MG/DL TRIGLYCERIDES (test code = 2232) 218 MG/DL HDL CHOLESTEROL (test code = 2220) 46 MG/DL CALC LDL CHOL (test code = 2237) 205 MG/DL RISK RATIO LDL/HDL (test code = 4.47 RATIO 2238) HEMOGLOBIN [id number] 00:00:00 Test Item Value Reference Range Interpretation Comments HEMOGLOBIN A1c (test code = 50456) 7.0 % HEMOGLOBIN [id number] 00:00:00 Test Item Value Reference Range Interpretation Comments HEMOGLOBIN A1c (test code = 23641) 7.0 % HEMOGLOBIN [id number] 00:00:00 Test Item Value Reference Range Interpretation Comments HEMOGLOBIN A1c (test code = 01423) 7.0 % [id number] 00:00:00 Test Item Value Reference Range Interpretation Comments TSH, THIRD GENERATION (test code 0.565 UIU/ML = 2821) [id number] 00:00:00 Test Item Value Reference Range Interpretation Comments TSH, THIRD GENERATION (test code 0.565 UIU/ML = 2821) [id number] 00:00:00 Test Item Value Reference Range Interpretation Comments TSH, THIRD GENERATION (test code 0.565 UIU/ML = 2821) [id number] 00:00:00 Test Item Value Reference Range Interpretation Comments TSH, THIRD GENERATION (test code 0.379 UIU/ML = 2821) [id number] 00:00:00 Test Item Value Reference Range Interpretation Comments TSH, THIRD GENERATION (test code 0.379 UIU/ML = 2821) [id number] 00:00:00 Test Item Value Reference Range Interpretation Comments TSH, THIRD GENERATION (test code 0.379 UIU/ML = 2821) [id number] 00:00:00 Test Item Value Reference Range Interpretation Comments TSH, THIRD GENERATION (test code 0.379 UIU/ML = 2821) [id number] 00:00:00 Test Item Value Reference Range Interpretation Comments TSH, THIRD GENERATION (test code 0.379 UIU/ML = 2821) [id number] 00:00:00 Test Item Value Reference Range Interpretation Comments TSH, THIRD GENERATION (test code 0.379 UIU/ML = 2821) [id number] 00:00:00 Test Item Value Reference Range Interpretation Comments TSH, THIRD GENERATION (test code 0.379 UIU/ML = 2821) [id number] 00:00:00 Test Item Value Reference Range Interpretation Comments TSH, THIRD GENERATION (test code 0.379 UIU/ML = 2821) [id number] 00:00:00 Test Item Value Reference Range Interpretation Comments TSH, THIRD GENERATION (test code 0.379 UIU/ML = 2821) [id number] 00:00:00 Test Item Value Reference Range Interpretation Comments TSH, THIRD GENERATION (test code 0.379 UIU/ML = 2821) [id number] 00:00:00 Test Item Value Reference Range Interpretation Comments TSH, THIRD GENERATION (test code 0.379 UIU/ML = 2821) CULTURE, [id number] 00:00:00 Test Item Value Reference Range Interpretation Comments CULTURE, URINE (test SPECIMEN NUMBER: code = 97891) [id number] CULTURE, [id number] 00:00:00 Test Item Value Reference Range Interpretation Comments CULTURE, URINE (test SPECIMEN NUMBER: code = 48511) [id number] CULTURE, [id number] 00:00:00 Test Item Value Reference Range Interpretation Comments CULTURE, URINE (test SPECIMEN NUMBER: code = 35060) [id number] CULTURE, [id number] 00:00:00 Test Item Value Reference Range Interpretation Comments CULTURE, URINE (test SPECIMEN NUMBER: code = 30672) [id number] CULTURE, [id number] 00:00:00 Test Item Value Reference Range Interpretation Comments CULTURE, URINE (test SPECIMEN NUMBER: code = 15639) [id number] CULTURE, [id number] 00:00:00 Test Item Value Reference Range Interpretation Comments CULTURE, URINE (test SPECIMEN NUMBER: code = 95037) [id number] CULTURE, [id number] 00:00:00 Test Item Value Reference Range Interpretation Comments CULTURE, URINE (test SPECIMEN NUMBER: code = 94272) [id number] COMPREHENSIVE METABOLIC [id number] 00:00:00 Test Item Value Reference Range Interpretation Comments GLUCOSE (test code = 2217) 128 MG/DL BUN (test code = 2208) 26 MG/DL CREATININE (test code = 2214) 0.92 MG/DL eGFR AMER. (test code 81 ML/MIN/1.73 = 82528) eGFR NON- AMER. (test 70 ML/MIN/1.73 code = 77370) CALC BUN/CREAT (test code = 28 RATIO [...] code = 2219) 29 U/L COMPREHENSIVE METABOLIC [id number] 00:00:00 Test Item Value Reference Range Interpretation Comments GLUCOSE (test code = 2217) 128 MG/DL BUN (test code = 2208) 26 MG/DL CREATININE (test code = 2214) 0.92 MG/DL eGFR AMER. (test code 81 ML/MIN/1.73 = 53078) eGFR NON- AMER. (test 70 ML/MIN/1.73 code = 96594) CALC BUN/CREAT (test code = 28 RATIO [...] code = 2219) 29 U/L ACUTE HEPATITIS [id number] 00:00:00 Test Item Value Reference Range Interpretation Comments HEPATITIS A IgM (test code = NON-REACTIVE 68439) HEPATITIS B CORE IgM (test code NON-REACTIVE = 4644) HEPATITIS B SURF AG (test code = NON-REACTIVE 2739) HEPATITIS C ANTIBODY (test code NON-REACTIVE = 4675) INTERPRETATION HEPATITIS A: (NOTE) (test code = 2552) INTERPRETATION HEPATITIS B: (NOTE) (test code = 89232) INTERPRETATION HEPATITIS C: (NOTE) (test code = 82812) ACUTE HEPATITIS [id number] 00:00:00 Test Item Value Reference Range Interpretation Comments HEPATITIS A IgM (test code = NON-REACTIVE 85454) HEPATITIS B CORE IgM (test code NON-REACTIVE = 4644) HEPATITIS B SURF AG (test code = NON-REACTIVE 2739) HEPATITIS C ANTIBODY (test code NON-REACTIVE = 4675) INTERPRETATION HEPATITIS A: (NOTE) (test code = 2552) INTERPRETATION HEPATITIS B: (NOTE) (test code = 62900) INTERPRETATION HEPATITIS C: (NOTE) (test code = 56232) [id number] 00:00:00 Test Item Value Reference Range Interpretation Comments AMYLASE (test code = 2205) 32 U/L [id number] 00:00:00 Test Item Value Reference Range Interpretation Comments AMYLASE (test code = 2205) 32 U/L [id number] 00:00:00 Test Item Value Reference Range Interpretation Comments LIPASE (test code = 2058) 22 U/L [id number] 00:00:00 Test Item Value Reference Range Interpretation Comments LIPASE (test code = 2058) 22 U/L [id number] 00:00:00 Test Item Value Reference Range Interpretation Comments LIPASE (test code = 2058) 22 U/L COMPREHENSIVE METABOLIC [id number] 00:00:00 Test Item Value Reference Range Interpretation Comments GLUCOSE (test code = 2217) 128 MG/DL BUN (test code = 2208) 26 MG/DL CREATININE (test code = 2214) 0.92 MG/DL eGFR AMER. (test code 81 ML/MIN/1.73 = 06767) eGFR NON- AMER. (test 70 ML/MIN/1.73 code = 96285) CALC BUN/CREAT (test code = 28 RATIO [...] code = 2219) 29 U/L COMPREHENSIVE METABOLIC [id number] 00:00:00 Test Item Value Reference Range Interpretation Comments GLUCOSE (test code = 2217) 128 MG/DL BUN (test code = 2208) 26 MG/DL CREATININE (test code = 2214) 0.92 MG/DL eGFR AMER. (test code 81 ML/MIN/1.73 = 16421) eGFR NON- AMER. (test 70 ML/MIN/1.73 code = 51603) CALC BUN/CREAT (test code = 28 RATIO [...] code = 2219) 29 U/L ACUTE HEPATITIS [id number] 00:00:00 Test Item Value Reference Range Interpretation Comments HEPATITIS A IgM (test code = NON-REACTIVE 54740) HEPATITIS B CORE IgM (test code NON-REACTIVE = 4644) HEPATITIS B SURF AG (test code = NON-REACTIVE 2739) HEPATITIS C ANTIBODY (test code NON-REACTIVE = 4675) INTERPRETATION HEPATITIS A: (NOTE) (test code = 2552) INTERPRETATION HEPATITIS B: (NOTE) (test code = 95120) INTERPRETATION HEPATITIS C: (NOTE) (test code = 81391) ACUTE HEPATITIS [id number] 00:00:00 Test Item Value Reference Range Interpretation Comments HEPATITIS A IgM (test code = NON-REACTIVE 03057) HEPATITIS B CORE IgM (test code NON-REACTIVE = 4644) HEPATITIS B SURF AG (test code = NON-REACTIVE 2739) HEPATITIS C ANTIBODY (test code NON-REACTIVE = 4675) INTERPRETATION HEPATITIS A: (NOTE) (test code = 2552) INTERPRETATION HEPATITIS B: (NOTE) (test code = 83499) INTERPRETATION HEPATITIS C: (NOTE) (test code = 80539) [id number] 00:00:00 Test Item Value Reference Range Interpretation Comments AMYLASE (test code = 2205) 32 U/L [id number] 00:00:00 Test Item Value Reference Range Interpretation Comments AMYLASE (test code = 2205) 32 U/L [id number] 00:00:00 Test Item Value Reference Range Interpretation Comments LIPASE (test code = 2058) 22 U/L [id number] 00:00:00 Test Item Value Reference Range Interpretation Comments LIPASE (test code = 2058) 22 U/L [id number] 00:00:00 Test Item Value Reference Range Interpretation Comments LIPASE (test code = 2058) 22 U/L COMPREHENSIVE METABOLIC [id number] 00:00:00 Test Item Value Reference Range Interpretation Comments GLUCOSE (test code = 2217) 128 MG/DL BUN (test code = 2208) 26 MG/DL CREATININE (test code = 2214) 0.92 MG/DL eGFR AMER. (test code 81 ML/MIN/1.73 = 23063) eGFR NON- AMER. (test 70 ML/MIN/1.73 code = 27804) CALC BUN/CREAT (test code = 28 RATIO [...] code = 2219) 29 U/L ACUTE HEPATITIS [id number] 00:00:00 Test Item Value Reference Range Interpretation Comments HEPATITIS A IgM (test code = NON-REACTIVE 24386) HEPATITIS B CORE IgM (test code NON-REACTIVE = 0381) HEPATITIS B SURF AG (test code = NON-REACTIVE 5942) HEPATITIS C ANTIBODY (test code NON-REACTIVE = 4619) INTERPRETATION HEPATITIS A: (NOTE) (test code = 2552) INTERPRETATION HEPATITIS B: (NOTE) (test code = 47028) INTERPRETATION HEPATITIS C: (NOTE) (test code = 59350) [id number] 00:00:00 Test Item Value Reference Range Interpretation Comments AMYLASE (test code = 2205) 32 U/L [id number] 00:00:00 Test Item Value Reference Range Interpretation Comments LIPASE (test code = 8) 22 U/L [id number] 00:00:00 Test Item Value Reference Range Interpretation Comments LIPASE (test code = 2058) 22 U/L COMPREHENSIVE METABOLIC [id number] 00:00:00 Test Item Value Reference Range Interpretation Comments GLUCOSE (test code = 2217) 128 MG/DL BUN (test code = 2208) 26 MG/DL CREATININE (test code = 2214) 0.92 MG/DL eGFR AMER. (test code 81 ML/MIN/1.73 = 17690) eGFR NON- AMER. (test 70 ML/MIN/1.73 code = 32747) CALC BUN/CREAT (test code = 28 RATIO [...] code = 2219) 29 U/L COMPREHENSIVE METABOLIC [id number] 00:00:00 Test Item Value Reference Range Interpretation Comments GLUCOSE (test code = 2217) 128 MG/DL BUN (test code = 2208) 26 MG/DL CREATININE (test code = 2214) 0.92 MG/DL eGFR AMER. (test code 81 ML/MIN/1.73 = 32881) eGFR NON- AMER. (test 70 ML/MIN/1.73 code = 75785) CALC BUN/CREAT (test code = 28 RATIO [...] code = 2219) 29 U/L ACUTE HEPATITIS [id number] 00:00:00 Test Item Value Reference Range Interpretation Comments HEPATITIS A IgM (test code = NON-REACTIVE 70261) HEPATITIS B CORE IgM (test code NON-REACTIVE = 4644) HEPATITIS B SURF AG (test code = NON-REACTIVE 2739) HEPATITIS C ANTIBODY (test code NON-REACTIVE = 4675) INTERPRETATION HEPATITIS A: (NOTE) (test code = 2552) INTERPRETATION HEPATITIS B: (NOTE) (test code = 72049) INTERPRETATION HEPATITIS C: (NOTE) (test code = 23539) ACUTE HEPATITIS [id number] 00:00:00 Test Item Value Reference Range Interpretation Comments HEPATITIS A IgM (test code = NON-REACTIVE 02511) HEPATITIS B CORE IgM (test code NON-REACTIVE = 4644) HEPATITIS B SURF AG (test code = NON-REACTIVE 2739) HEPATITIS C ANTIBODY (test code NON-REACTIVE = 4675) INTERPRETATION HEPATITIS A: (NOTE) (test code = 2552) INTERPRETATION HEPATITIS B: (NOTE) (test code = 10990) INTERPRETATION HEPATITIS C: (NOTE) (test code = 45617) [id number] 00:00:00 Test Item Value Reference Range Interpretation Comments AMYLASE (test code = 2205) 32 U/L [id number] 00:00:00 Test Item Value Reference Range Interpretation Comments AMYLASE (test code = 2205) 32 U/L [id number] 00:00:00 Test Item Value Reference Range Interpretation Comments LIPASE (test code = 2058) 22 U/L [id number] 00:00:00 Test Item Value Reference Range Interpretation Comments LIPASE (test code = 2058) 22 U/L [id number] 00:00:00 Test Item Value Reference Range Interpretation Comments LIPASE (test code = 2058) 22 U/L [id number] 00:00:00 Test Item Value Reference Range Interpretation Comments TSH, THIRD GENERATION (test code 4.890 UIU/ML = 2821) [id number] 00:00:00 Test Item Value Reference Range Interpretation Comments TSH, THIRD GENERATION (test code 4.890 UIU/ML = 2821) [id number] 00:00:00 Test Item Value Reference Range Interpretation Comments TSH, THIRD GENERATION (test code 4.890 UIU/ML = 2821) COMPREHENSIVE METABOLIC [id number] 00:00:00 Test Item Value Reference Range Interpretation Comments GLUCOSE (test code = 2217) 121 MG/DL BUN (test code = 2208) 40 MG/DL CREATININE (test code = 2214) 1.48 MG/DL eGFR AMER. (test code 45 ML/MIN/1.73 = 50754) eGFR NON- AMER. (test 39 ML/MIN/1.73 code = 77759) CALC BUN/CREAT (test code = 27 RATIO [...] code = 2219) 20 U/L COMPREHENSIVE METABOLIC [id number] 00:00:00 Test Item Value Reference Range Interpretation Comments GLUCOSE (test code = 2217) 121 MG/DL BUN (test code = 2208) 40 MG/DL CREATININE (test code = 2214) 1.48 MG/DL eGFR AMER. (test code 45 ML/MIN/1.73 = 07989) eGFR NON- AMER. (test 39 ML/MIN/1.73 code = 05836) CALC BUN/CREAT (test code = 27 RATIO [...] ALT (test code = 2219) 20 U/L [id number] 00:00:00 Test Item Value Reference Range Interpretation Comments TSH, THIRD GENERATION (test code 4.890 UIU/ML = 2821) [id number] 00:00:00 Test Item Value Reference Range Interpretation Comments TSH, THIRD GENERATION (test code 4.890 UIU/ML = 2821) [id number] 00:00:00 Test Item Value Reference Range Interpretation Comments TSH, THIRD GENERATION (test code 4.890 UIU/ML = 2821) COMPREHENSIVE METABOLIC [id number] 00:00:00 Test Item Value Reference Range Interpretation Comments GLUCOSE (test code = 2217) 121 MG/DL BUN (test code = 2208) 40 MG/DL CREATININE (test code = 2214) 1.48 MG/DL eGFR AMER. (test code 45 ML/MIN/1.73 = 28615) eGFR NON- AMER. (test 39 ML/MIN/1.73 code = 78812) CALC BUN/CREAT (test code = 27 RATIO [...] code = 2219) 20 U/L COMPREHENSIVE METABOLIC [id number] 00:00:00 Test Item Value Reference Range Interpretation Comments GLUCOSE (test code = 2217) 121 MG/DL BUN (test code = 2208) 40 MG/DL CREATININE (test code = 2214) 1.48 MG/DL eGFR AMER. (test code 45 ML/MIN/1.73 = 54136) eGFR NON- AMER. (test 39 ML/MIN/1.73 code = 75219) CALC BUN/CREAT (test code = 27 RATIO [...] ALT (test code = 2219) 20 U/L [id number] 00:00:00 Test Item Value Reference Range Interpretation Comments TSH, THIRD GENERATION (test code 4.890 UIU/ML = 2821) [id number] 00:00:00 Test Item Value Reference Range Interpretation Comments TSH, THIRD GENERATION (test code 4.890 UIU/ML = 2821) COMPREHENSIVE METABOLIC [id number] 00:00:00 Test Item Value Reference Range Interpretation Comments GLUCOSE (test code = 2217) 121 MG/DL BUN (test code = 2208) 40 MG/DL CREATININE (test code = 2214) 1.48 MG/DL eGFR AMER. (test code 45 ML/MIN/1.73 = 11782) eGFR NON- AMER. (test 39 ML/MIN/1.73 code = 50778) CALC BUN/CREAT (test code = 27 RATIO [...] ALT (test code = 2219) 20 U/L [id number] 00:00:00 Test Item Value Reference Range Interpretation Comments TSH, THIRD GENERATION (test code 4.890 UIU/ML = 2821) [id number] 00:00:00 Test Item Value Reference Range Interpretation Comments TSH, THIRD GENERATION (test code 4.890 UIU/ML = 2821) [id number] 00:00:00 Test Item Value Reference Range Interpretation Comments TSH, THIRD GENERATION (test code 4.890 UIU/ML = 2821) COMPREHENSIVE METABOLIC [id number] 00:00:00 Test Item Value Reference Range Interpretation Comments GLUCOSE (test code = 2217) 121 MG/DL BUN (test code = 2208) 40 MG/DL CREATININE (test code = 2214) 1.48 MG/DL eGFR AMER. (test code 45 ML/MIN/1.73 = 72368) eGFR NON- AMER. (test 39 ML/MIN/1.73 code = 69507) CALC BUN/CREAT (test code = 27 RATIO [...] code = 2219) 20 U/L COMPREHENSIVE METABOLIC [id number] 00:00:00 Test Item Value Reference Range Interpretation Comments GLUCOSE (test code = 2217) 121 MG/DL BUN (test code = 2208) 40 MG/DL CREATININE (test code = 2214) 1.48 MG/DL eGFR AMER. (test code 45 ML/MIN/1.73 = 09319) eGFR NON- AMER. (test 39 ML/MIN/1.73 code = 06696) CALC BUN/CREAT (test code = 27 RATIO [...] (test code = 2219) 20 U/L LIPID [id number] 00:00:00 Test Item Value Reference Range Interpretation Comments CHOLESTEROL (test code = 2210) 261 MG/DL TRIGLYCERIDES (test code = 2232) 165 MG/DL HDL CHOLESTEROL (test code = 2220) 58 MG/DL CALC LDL CHOL (test code = 2237) 170 MG/DL RISK RATIO LDL/HDL (test code = 2.93 RATIO 2238) LIPID [id number] 00:00:00 Test Item Value Reference Range Interpretation Comments CHOLESTEROL (test code = 2210) 261 MG/DL TRIGLYCERIDES (test code = 2232) 165 MG/DL HDL CHOLESTEROL (test code = 2220) 58 MG/DL CALC LDL CHOL (test code = 2237) 170 MG/DL RISK RATIO LDL/HDL (test code = 2.93 RATIO 2238) CBC W/AUTO [id number] 00:00:00 Test Item Value Reference Range Interpretation [...] code = 1015) 378 K/UL CBC W/AUTO [id number] 00:00:00 Test Item Value Reference Range Interpretation [...] code = 1015) 378 K/UL CBC W/AUTO [id number] 00:00:00 Test Item Value Reference Range Interpretation [...] (test code = 1015) 378 K/UL HEMOGLOBIN [id number] 00:00:00 Test Item Value Reference Range Interpretation Comments HEMOGLOBIN A1c (test code = 45619) 6.4 % HEMOGLOBIN [id number] 00:00:00 Test Item Value Reference Range Interpretation Comments HEMOGLOBIN A1c (test code = 28107) 6.4 % HEMOGLOBIN [id number] 00:00:00 Test Item Value Reference Range Interpretation Comments HEMOGLOBIN A1c (test code = 97712) 6.4 % [id number] 00:00:00 Test Item Value Reference Range Interpretation Comments TSH (test code = 2821) 5.290 UIU/ML [id number] 00:00:00 Test Item Value Reference Range Interpretation Comments TSH (test code = 2821) 5.290 UIU/ML [id number] 00:00:00 Test Item Value Reference Range Interpretation Comments TSH (test code = 2821) 5.290 UIU/ML LIPID [id number] 00:00:00 Test Item Value Reference Range Interpretation Comments CHOLESTEROL (test code = 2210) 261 MG/DL TRIGLYCERIDES (test code = 2232) 165 MG/DL HDL CHOLESTEROL (test code = 2220) 58 MG/DL CALC LDL CHOL (test code = 2237) 170 MG/DL RISK RATIO LDL/HDL (test code = 2.93 RATIO 2238) LIPID [id number] 00:00:00 Test Item Value Reference Range Interpretation Comments CHOLESTEROL (test code = 2210) 261 MG/DL TRIGLYCERIDES (test code = 2232) 165 MG/DL HDL CHOLESTEROL (test code = 2220) 58 MG/DL CALC LDL CHOL (test code = 2237) 170 MG/DL RISK RATIO LDL/HDL (test code = 2.93 RATIO 2238) CBC W/AUTO [id number] 00:00:00 Test Item Value Reference Range Interpretation [...] code = 1015) 378 K/UL CBC W/AUTO [id number] 00:00:00 Test Item Value Reference Range Interpretation [...] code = 1015) 378 K/UL CBC W/AUTO [id number] 00:00:00 Test Item Value Reference Range Interpretation [...] (test code = 1015) 378 K/UL HEMOGLOBIN [id number] 00:00:00 Test Item Value Reference Range Interpretation Comments HEMOGLOBIN A1c (test code = 72208) 6.4 % HEMOGLOBIN [id number] 00:00:00 Test Item Value Reference Range Interpretation Comments HEMOGLOBIN A1c (test code = 67377) 6.4 % HEMOGLOBIN [id number] 00:00:00 Test Item Value Reference Range Interpretation Comments HEMOGLOBIN A1c (test code = 97106) 6.4 % [id number] 00:00:00 Test Item Value Reference Range Interpretation Comments TSH (test code = 2821) 5.290 UIU/ML [id number] 00:00:00 Test Item Value Reference Range Interpretation Comments TSH (test code = 2821) 5.290 UIU/ML [id number] 00:00:00 Test Item Value Reference Range Interpretation Comments TSH (test code = 2821) 5.290 UIU/ML LIPID [id number] 00:00:00 Test Item Value Reference Range Interpretation Comments CHOLESTEROL (test code = 2210) 261 MG/DL TRIGLYCERIDES (test code = 2232) 165 MG/DL HDL CHOLESTEROL (test code = 2220) 58 MG/DL CALC LDL CHOL (test code = 2237) 170 MG/DL RISK RATIO LDL/HDL (test code = 2.93 RATIO 2238) CBC W/AUTO [id number] 00:00:00 Test Item Value Reference Range Interpretation [...] code = 1015) 378 K/UL CBC W/AUTO [id number] 00:00:00 Test Item Value Reference Range Interpretation [...] (test code = 1015) 378 K/UL HEMOGLOBIN [id number] 00:00:00 Test Item Value Reference Range Interpretation Comments HEMOGLOBIN A1c (test code = 46166) 6.4 % HEMOGLOBIN [id number] 00:00:00 Test Item Value Reference Range Interpretation Comments HEMOGLOBIN A1c (test code = 05006) 6.4 % [id number] 00:00:00 Test Item Value Reference Range Interpretation Comments TSH (test code = 2821) 5.290 UIU/ML [id number] 00:00:00 Test Item Value Reference Range Interpretation Comments TSH (test code = 2821) 5.290 UIU/ML LIPID [id number] 00:00:00 Test Item Value Reference Range Interpretation Comments CHOLESTEROL (test code = 2210) 261 MG/DL TRIGLYCERIDES (test code = 2232) 165 MG/DL HDL CHOLESTEROL (test code = 2220) 58 MG/DL CALC LDL CHOL (test code = 2237) 170 MG/DL RISK RATIO LDL/HDL (test code = 2.93 RATIO 2238) LIPID [id number] 00:00:00 Test Item Value Reference Range Interpretation Comments CHOLESTEROL (test code = 2210) 261 MG/DL TRIGLYCERIDES (test code = 2232) 165 MG/DL HDL CHOLESTEROL (test code = 2220) 58 MG/DL CALC LDL CHOL (test code = 2237) 170 MG/DL RISK RATIO LDL/HDL (test code = 2.93 RATIO 2238) CBC W/AUTO [id number] 00:00:00 Test Item Value Reference Range Interpretation [...] code = 1015) 378 K/UL CBC W/AUTO [id number] 00:00:00 Test Item Value Reference Range Interpretation [...] code = 1015) 378 K/UL CBC W/AUTO [id number] 00:00:00 Test Item Value Reference Range Interpretation [...] (test code = 1015) 378 K/UL HEMOGLOBIN [id number] 00:00:00 Test Item Value Reference Range Interpretation Comments HEMOGLOBIN A1c (test code = 37763) 6.4 % HEMOGLOBIN [id number] 00:00:00 Test Item Value Reference Range Interpretation Comments HEMOGLOBIN A1c (test code = 99749) 6.4 % HEMOGLOBIN [id number] 00:00:00 Test Item Value Reference Range Interpretation Comments HEMOGLOBIN A1c (test code = 51560) 6.4 % [id number] 00:00:00 Test Item Value Reference Range Interpretation Comments TSH (test code = 2821) 5.290 UIU/ML [id number] 00:00:00 Test Item Value Reference Range Interpretation Comments TSH (test code = 2821) 5.290 UIU/ML [id number] 00:00:00 Test Item Value Reference Range Interpretation [...] code = 2821) 1.030 UIU/ML COMPREHENSIVE METABOLIC [id number] 00:00:00 Test Item Value Reference Range Interpretation Comments GLUCOSE (test code = 2217) 106 MG/DL BUN (test code = 2208) 23 MG/DL CREATININE (test code = 2214) 0.66 MG/DL eGFR AMER. (test code 114 ML/MIN/1.73 = 19084) eGFR NON- AMER. (test 99 ML/MIN/1.73 code = 49196) CALC BUN/CREAT (test code = 35 RATIO [...] code = 2219) 31 U/L COMPREHENSIVE METABOLIC [id number] 00:00:00 Test Item Value Reference Range Interpretation Comments GLUCOSE (test code = 2217) 106 MG/DL BUN (test code = 2208) 23 MG/DL CREATININE (test code = 2214) 0.66 MG/DL eGFR AMER. (test code 114 ML/MIN/1.73 = 51736) eGFR NON- AMER. (test 99 ML/MIN/1.73 code = 30967) CALC BUN/CREAT (test code = 35 RATIO [...] code = 2821) 0.335 UIU/ML COMPREHENSIVE METABOLIC [id number] 00:00:00 Test Item Value Reference Range Interpretation Comments GLUCOSE (test code = 2217) 106 MG/DL BUN (test code = 2208) 23 MG/DL CREATININE (test code = 2214) 0.66 MG/DL eGFR AMER. (test code 114 ML/MIN/1.73 = 08470) eGFR NON- AMER. (test 99 ML/MIN/1.73 code = 62706) CALC BUN/CREAT (test code = 35 RATIO [...] code = 2219) 31 U/L COMPREHENSIVE METABOLIC [id number] 00:00:00 Test Item Value Reference Range Interpretation Comments GLUCOSE (test code = 2217) 106 MG/DL BUN (test code = 2208) 23 MG/DL CREATININE (test code = 2214) 0.66 MG/DL eGFR AMER. (test code 114 ML/MIN/1.73 = 73597) eGFR NON- AMER. (test 99 ML/MIN/1.73 code = 71062) CALC BUN/CREAT (test code = 35 RATIO [...] code = 2821) 0.335 UIU/ML COMPREHENSIVE METABOLIC [id number] 00:00:00 Test Item Value Reference Range Interpretation Comments GLUCOSE (test code = 2217) 106 MG/DL BUN (test code = 2208) 23 MG/DL CREATININE (test code = 2214) 0.66 MG/DL eGFR AMER. (test code 114 ML/MIN/1.73 = 21745) eGFR NON- AMER. (test 99 ML/MIN/1.73 code = 18317) CALC BUN/CREAT (test code = 35 RATIO [...] code = 2821) 0.335 UIU/ML COMPREHENSIVE METABOLIC [id number] 00:00:00 Test Item Value Reference Range Interpretation Comments GLUCOSE (test code = 2217) 106 MG/DL BUN (test code = 2208) 23 MG/DL CREATININE (test code = 2214) 0.66 MG/DL eGFR AMER. (test code 114 ML/MIN/1.73 = 96472) eGFR NON- AMER. (test 99 ML/MIN/1.73 code = 09955) CALC BUN/CREAT (test code = 35 RATIO [...] code = 2219) 31 U/L COMPREHENSIVE METABOLIC [id number] 00:00:00 Test Item Value Reference Range Interpretation Comments GLUCOSE (test code = 2217) 106 MG/DL BUN (test code = 2208) 23 MG/DL CREATININE (test code = 2214) 0.66 MG/DL eGFR AMER. (test code 114 ML/MIN/1.73 = 42815) eGFR NON- AMER. (test 99 ML/MIN/1.73 code = 31077) CALC BUN/CREAT (test code = 35 RATIO [...] code = 2821) 0.335 UIU/ML COMPREHENSIVE METABOLIC [id number] 00:00:00 Test Item Value Reference Range Interpretation Comments GLUCOSE (test code = 2217) 103 MG/DL BUN (test code = 2208) 15 MG/DL CREATININE (test code = 2214) 0.77 MG/DL eGFR AMER. (test code 101 ML/MIN/1.73 = 71723) eGFR NON- AMER. (test 87 ML/MIN/1.73 code = 13492) CALC BUN/CREAT (test code = 19 RATIO [...] code = 2219) 24 U/L COMPREHENSIVE METABOLIC [id number] 00:00:00 Test Item Value Reference Range Interpretation Comments GLUCOSE (test code = 2217) 103 MG/DL BUN (test code = 2208) 15 MG/DL CREATININE (test code = 2214) 0.77 MG/DL eGFR AMER. (test code 101 ML/MIN/1.73 = 45726) eGFR NON- AMER. (test 87 ML/MIN/1.73 code = 76685) CALC BUN/CREAT (test code = 19 RATIO [...] code = 2821) 0.424 UIU/ML COMPREHENSIVE METABOLIC [id number] 00:00:00 Test Item Value Reference Range Interpretation Comments GLUCOSE (test code = 2217) 103 MG/DL BUN (test code = 2208) 15 MG/DL CREATININE (test code = 2214) 0.77 MG/DL eGFR AMER. (test code 101 ML/MIN/1.73 = 85636) eGFR NON- AMER. (test 87 ML/MIN/1.73 code = 58528) CALC BUN/CREAT (test code = 19 RATIO [...] code = 2219) 24 U/L COMPREHENSIVE METABOLIC [id number] 00:00:00 Test Item Value Reference Range Interpretation Comments GLUCOSE (test code = 2217) 103 MG/DL BUN (test code = 2208) 15 MG/DL CREATININE (test code = 2214) 0.77 MG/DL eGFR AMER. (test code 101 ML/MIN/1.73 = 82086) eGFR NON- AMER. (test 87 ML/MIN/1.73 code = 49605) CALC BUN/CREAT (test code = 19 RATIO [...] code = 2821) 0.424 UIU/ML COMPREHENSIVE METABOLIC [id number] 00:00:00 Test Item Value Reference Range Interpretation Comments GLUCOSE (test code = 2217) 103 MG/DL BUN (test code = 2208) 15 MG/DL CREATININE (test code = 2214) 0.77 MG/DL eGFR AMER. (test code 101 ML/MIN/1.73 = 79021) eGFR NON- AMER. (test 87 ML/MIN/1.73 code = 04708) CALC BUN/CREAT (test code = 19 RATIO [...] code = 2821) 0.424 UIU/ML COMPREHENSIVE METABOLIC [id number] 00:00:00 Test Item Value Reference Range Interpretation Comments GLUCOSE (test code = 2217) 103 MG/DL BUN (test code = 2208) 15 MG/DL CREATININE (test code = 2214) 0.77 MG/DL eGFR AMER. (test code 101 ML/MIN/1.73 = 02875) eGFR NON- AMER. (test 87 ML/MIN/1.73 code = 82816) CALC BUN/CREAT (test code = 19 RATIO [...] code = 2219) 24 U/L COMPREHENSIVE METABOLIC [id number] 00:00:00 Test Item Value Reference Range Interpretation Comments GLUCOSE (test code = 2217) 103 MG/DL BUN (test code = 2208) 15 MG/DL CREATININE (test code = 2214) 0.77 MG/DL eGFR AMER. (test code 101 ML/MIN/1.73 = 75650) eGFR NON- AMER. (test 87 ML/MIN/1.73 code = 91457) CALC BUN/CREAT (test code = 19 RATIO [...] (test code = 2821) 0.424 UIU/ML CULTURE, [id number] 00:00:00 Test Item Value Reference Range Interpretation Comments CULTURE, URINE (test SPECIMEN NUMBER: code = 59998) [id number] CULTURE, [id number] 00:00:00 Test Item Value Reference Range Interpretation Comments CULTURE, URINE (test SPECIMEN NUMBER: code = 72671) [id number] CULTURE, [id number] 00:00:00 Test Item Value Reference Range Interpretation Comments CULTURE, URINE (test SPECIMEN NUMBER: code = 33323) [id number] CULTURE, [id number] 00:00:00 Test Item Value Reference Range Interpretation Comments CULTURE, URINE (test SPECIMEN NUMBER: code = 53119) [id number] CULTURE, [id number] 00:00:00 Test Item Value Reference Range Interpretation Comments CULTURE, URINE (test SPECIMEN NUMBER: code = 58575) [id number] CULTURE, [id number] 00:00:00 Test Item Value Reference Range Interpretation Comments CULTURE, URINE (test SPECIMEN NUMBER: code = 44819) [id number] CULTURE, [id number] 00:00:00 Test Item Value Reference Range Interpretation Comments CULTURE, URINE (test SPECIMEN NUMBER: code = 09176) [id number] CULTURE, [id number] 00:00:00 Test Item Value Reference Range Interpretation Comments CULTURE, URINE (test SPECIMEN NUMBER: code = 00146) [id number] CULTURE, [id number] 00:00:00 Test Item Value Reference Range Interpretation Comments CULTURE, URINE (test SPECIMEN NUMBER: code = 36422) [id number] CULTURE, [id number] 00:00:00 Test Item Value Reference Range Interpretation Comments CULTURE, URINE (test SPECIMEN NUMBER: code = 56735) [id number] CULTURE, [id number] 00:00:00 Test Item Value Reference Range Interpretation Comments CULTURE, URINE (test SPECIMEN NUMBER: code = 02620) [id number] CULTURE, [id number] 00:00:00 Test Item Value Reference Range Interpretation Comments CULTURE, URINE (test SPECIMEN NUMBER: code = 92818) [id number] CULTURE, [id number] 00:00:00 Test Item Value Reference Range Interpretation Comments CULTURE, URINE (test SPECIMEN NUMBER: code = [id number]) [id number] CULTURE, [id number] 00:00:00 Test Item Value Reference Range Interpretation Comments CULTURE, URINE (test SPECIMEN NUMBER: code = 60911) [id number]
--- NOTE | 2022-07-05 18:07 | EDPHYS ---
Physician Documentation [facility] Name: Jaimie Amanda Age: 61 yrs Sex: Female : 1960 Arrival Date: 07/05/2022 Time: 17:51 Bed DIS4 Private MD: ED Physician Wilfrid Singh HPI: 07/05 18:00 This 61 yrs old Female presents to ER via Ambulatory with complaints of Abdominal Pain cp and Nausea/Vomiting. 18:00 The patient presents with abdominal pain. Associated signs and symptoms: Pertinent cp positives: nausea and vomiting, Pertinent negatives: blood in stools, chest pain, diarrhea, fever, vomiting blood. Severity of pain: in the emergency department the pain is unchanged. The patient has been recently seen at the [facility] Emergency Department, today, for similar complaints labs were performed. Historical: - Allergies: 18:00 Hydrochlorothiazide; hb - PMHx: 18:00 Anxiety; Chronic Abdominal Pain; Hypertensive disorder; Hypothyroidism; low NA; NIDDM; hb - PSHx: 18:00 Thyroidectomy; hb - Immunization history:: Adult Immunizations up to date. - Social history:: Smoking status: Patient denies any tobacco usage or history of. ROS: 18:02 Eyes: Negative for injury, pain, redness, and discharge. cp 18:02 Constitutional: Negative for body aches, chills, fever, poor PO intake. 18:02 ENT: Negative for drainage from ear(s), ear pain, sore throat, difficulty swallowing, difficulty handling secretions. 18:02 Cardiovascular: Negative for chest pain, edema. 18:02 Respiratory: Negative for cough, shortness of breath, wheezing. 18:02 Abdomen/GI: Positive for abdominal pain, nausea and vomiting, Negative for diarrhea, cp constipation, hematemesis, black/tarry stool, rectal bleeding. 18:02 Neuro: Negative for altered mental status, headache. 18:02 All other systems are negative. Exam: 18:05 Constitutional: The patient appears in no acute distress, alert, awake, cp non-diaphoretic, non-toxic, well developed, well nourished. 18:05 Head/Face: Normocephalic, atraumatic. cp 18:05 Eyes: Periorbital structures: appear normal, Conjunctiva: normal, no exudate, no injection, Sclera: no appreciated abnormality, Lids and lashes: appear normal, bilaterally. 18:05 ENT: External ear(s): are unremarkable, Nose: is normal, Mouth: Lips: moist, Oral mucosa: pink and intact, moist, Posterior pharynx: is normal, airway is patent, no erythema, no exudate. 18:05 Chest/axilla: Inspection: normal. 18:05 Cardiovascular: Rate: normal, Edema: is not appreciated, JVD: is not appreciated. 18:05 Respiratory: the patient does not display signs of respiratory distress, Respirations: normal, no use of accessory muscles, no retractions, labored breathing, is not present, Breath sounds: are clear throughout, no decreased breath sounds, no stridor, no wheezing. 18:05 Abdomen/GI: Inspection: abdomen appears normal, Palpation: abdomen is soft and non-tender, in all quadrants. 18:05 Back: CVA tenderness, is absent. 18:05 Neuro: Orientation: to person, place \T\ time. Mentation: able to follow commands, slow to respond, Motor: moves all fours, strength is normal, Gait: is steady, without difficulty. Vital Signs: 17:58 BP 191 / 94; Pulse 74; Resp 16; Temp 98.4; Pulse Ox 100% on R/A; Weight 83.91 kg; hb Height 5 ft. 7 in. ; Pain 10/10; 18:14 BP 168 / 80; hb 17:58 Body Mass Index 28.97 (83.91 kg, 170.18 cm) hb 17:58 Pain Scale: Adult hb MDM: 18:01 Patient medically screened. cp 18:07 Data reviewed: vital signs, nurses notes. cp 18:07 Differential diagnosis: gastritis, non-specific abd pain, pancreatitis, Peritonitis, cp Pyelonephritis, Ureterolithiasis, urinary tract infection. I considered the following discharge prescriptions or medication management in the emergency department Medications were administered in the Emergency Department. See MAR. Test considered but Not performed: Labs: cbc, bmp. CT: abdomen/pelvis. Care significantly affected by the following chronic conditions: Hypertension, hyponatremia. Counseling: I had a detailed discussion with the patient and/or guardian regarding: the historical points, exam findings, and any diagnostic results supporting the discharge/admit diagnosis, to return to the emergency department if symptoms worsen or persist or if there are any questions or concerns that arise at home. ED course: VS noted. Patient seen in this ED earlier today and evaluated. No active vomiting. Patient appears non-toxic. Will discharge to home for continued monitoring. Administered Medications: 18:06 Drug: Promethazine IM 25 mg Route: IM; Site: left deltoid; hb Disposition Summary: 07/05/22 18:07 Discharge Ordered Location: Home cp Problem: new cp Symptoms: have improved cp Condition: Stable cp Diagnosis - Nausea with vomiting, unspecified cp - Hypertensive heart disease without heart failure cp Followup: cp - With: Private Physician - When: 1 - 2 days - Reason: Recheck today's complaints Discharge Instructions: - Discharge Summary Sheet cp - Hypertension, Adult cp - Nausea and Vomiting, Adult cp Forms: - Medication Reconciliation Form cp - Thank You Letter cp - Antibiotic Education cp - Prescription Opioid Use cp Prescriptions: - promethazine 25 mg Rectal suppository - insert 1 suppository by RECTAL route every 6 hours; 12 suppository; Refills: 0, cp Product Selection Permitted - promethazine 25 mg Oral Tablet - take 1 tablet by ORAL route every 6 hours As needed; 20 tablet; Refills: 0, cp Product Selection Permitted Addendum: 07/07/2022 21:46 Co-signature as Attending Physician, Wilfrid Singh DO I was immediately available on-site m s3 in the Emergency Department for consultation in the care of the patient. . Signatures: Diego Ang PA PA cp Baxter, Heather RN RN Wilfrid Singh DO DO ms3
--- NOTE | 2022-07-05 18:07 | ER ---
Nurse's Notes [facility] Name: Jaimie Amanda Age: 61 yrs Sex: Female : 1960 Arrival Date: 07/05/2022 Time: 17:51 Bed DIS4 Private MD: Diagnosis: Nausea with vomiting, unspecified;Hypertensive heart disease without heart failure Presentation: 07/05 17:58 Chief complaint: N/V and abdominal pain x 1 week. Coronavirus screen: At this time, the hb client does not indicate any symptoms associated with coronavirus-19. Ebola Screen: No symptoms or risks identified at this time. Initial Sepsis Screen: Does the patient meet any 2 criteria? No. Patient's initial sepsis screen is negative. Does the patient have a suspected source of infection? No. Patient's initial sepsis screen is negative. Risk Assessment: Do you want to hurt yourself or someone else? Patient reports no desire to harm self or others. Onset of symptoms was June 28, 2022. 17:58 Method Of Arrival: Ambulatory hb 17:58 Acuity: ZHEN 3 hb Historical: - Allergies: 18:00 Hydrochlorothiazide; hb - PMHx: 18:00 Anxiety; Chronic Abdominal Pain; Hypertensive disorder; Hypothyroidism; low NA; NIDDM; hb - PSHx: 18:00 Thyroidectomy; hb - Immunization history:: Adult Immunizations up to date. - Social history:: Smoking status: Patient denies any tobacco usage or history of. Vital Signs: 17:58 BP 191 / 94; Pulse 74; Resp 16; Temp 98.4; Pulse Ox 100% on R/A; Weight 83.91 kg; hb Height 5 ft. 7 in. ; Pain 10/10; 18:14 BP 168 / 80; hb 17:58 Body Mass Index 28.97 (83.91 kg, 170.18 cm) hb 17:58 Pain Scale: Adult hb ED Course: 17:52 Patient arrived in ED. am2 17:56 Diego Ang PA is PHCP. cp 17:56 Wilfrid Singh DO is Attending Physician. cp 18:00 Triage completed. hb 18:00 Arm band placed on. hb Administered Medications: 18:06 Drug: Promethazine IM 25 mg Route: IM; Site: left deltoid; hb Outcome: 18:07 Discharge ordered by . cp 18:14 Patient left the ED. hb Signatures: Diego Ang PA PA cp Gail Espinoza, RN RN hb Elisa Gregory am2 Corrections: (The following items were deleted from the chart) 18:00 17:58 Note N/V and abdominal pain since this morning. hb hb 18:01 17:58 BP 136 / 86; Pulse 74bpm; Resp 16bpm; Pulse Ox 100% RA; Temp 98.4F; 83.91 kg; hb Height 5 ft. 7 in.; BMI: 28.9; Pain 10/10, Adult; hb
[2022-07-05] MEDS ORDERED: PROMETHAZINE INJ 25 MG/ML AMP ONE (18:10)
[2022-07-05 18:35] VITALS: TEMP 98.4; O2SAT 100
[2022-07-05 18:36] VITALS: BP 168/80
== END 2022-07-05 18:14 | disposition home or self-care (01) ==
LOC: ER 17:51
DX: R11.2 Nausea with vomiting, unspecified (principal); I11.9 Hypertensive heart disease without heart failure; R10.84 Generalized abdominal pain; I10 Essential (primary) hypertension; Z88.8 Allergy status to other drugs, medicaments and biological substances
CPT/HCPCS: 96372; 99283; J2550

== ENCOUNTER 2022-07-06 17:22 | Emergency (ER) | payer OTHER ==
--- OUTSIDE RECORDS SUMMARY | 2022-07-06 17:39 | XMS REPORT | Continuity of Care Document ---
:1960 Author Organization [facility] t Address [address] [place] [address] [place] [id number] Care Team Providers Name Role Phone Sharpless Primary Care Physician MATT SIMPSON Attending Clinician Unavailable MATT SIMPSON Attending Clinician Unavailable Doctor Unassigned, Moville Attending Clinician Unavailable WALLY KRISHNAMURTHY Attending Clinician Unavailable Natacha Brewster Attending Clinician Payers Payer Name Policy Type Policy Number Effective Date Expiration Date Sarina castelan [facility] [id number] 2017 00:00:00 PLUS Problems This patient has [...] ers OPHEN INGREDI 07-27 ity of 00:00: [place] [facility] H[facility]-Coa Propensi Inactiv Reductas [...] Cente r Alcohol intake 2016-05-01 2016-05-01 Current [facility] 00:00:00 00:00:00 non-drinker of Medical nter alcohol (finding) Sex Assigned At [birth year] [facility] 00:00:00 00:00:00 [facility] Smoking Status Start Date Stop Date Source Smokes tobacco daily 2016-05-01 00:00:00 [facility] Medications Ordered Filled Start Stop Current [...] capsule 00:00: 00 OXcarbazepi 2017-0 Yes 600mg Q.[id number] Take [address] [facility] [address] ne 2-23 [id number] mg by Yasir (TRILEPTAL) 10:23: 3D mouth 3 Med ical 600 MG 59 (three) Center tablet times daily. PARoxetine 2017-0 Yes 40mg QD Take [address] (PAXIL) 40 2-23 [facility] 10:23: nightly. [address] 2017-0 Yes 600mg Q.[id number] Take [address] ne 2-23 [id number] [facility] by [facility] (TRILE[facility]AL) 10:23: 3D mouth 3 Med ical 600 MG 59 (three) Center tablet times daily. PARoxetine 2017-0 Yes 40mg QD Take [address] (PAXIL) 40 2-23 [facility] tablet 10:23: nightly. [address] 2017-0 Yes 600mg Q.[id number] Take [address] ne 2-23 [id number] [facility] by [facility] (TRILEPTAL) 10:23: 3D mouth 3 Med ical 600 MG 59 (three) Center tablet times daily. PARoxetine 2017-0 Yes 40mg QD Take [address] (PAXIL) 40 2-23 [facility] tablet 10:23: nightly. [address] 2017-0 Yes 600mg Q.[id number] Take [address] ne 2-23 [id number] [facility] by [facility] (TRILEPTAL) 10:23: 3D mouth 3 Med ical 600 MG 59 (three) Center tablet times daily. PARoxetine 2017-0 Yes 40mg QD Take [address] (PAXIL) 40 2-23 [facility] tablet 10:23: nightly. [address] 2017-0 Yes 600mg Q.[id number] Take [address] ne 2-23 [id number] [facility] by [facility] (TRILEPTAL) 10:23: 3D mouth 3 Med ical 600 MG 59 (three) Center tablet times daily. PARoxetine 2017-0 Yes 40mg QD Take [address] (PAXIL) 40 2-23 [facility] tablet 10:23: nightly. [address] OXcarbazepi 2017-0 Yes 600mg Q.[id number] Take [address] ne 2-23 [id number] mg by [facility] (TRILEPTAL) 10:23: 3D mouth 3 Med ical 600 MG 59 (three) Center tablet times daily. PARoxetine 2017-0 Yes 40mg QD Take [address] (PAXIL) 40 2-23 [facility] tablet 10:23: nightly. [address] OXcarbazepi 2017-0 Yes 600mg Q.[id number] Take [address] ne 2-23 [id number] mg by [facility] (TRILEPTAL) 10:23: 3D mouth 3 Med ical 600 MG 59 (three) Center tablet times daily. PARoxetine 2017-0 Yes 40mg QD Take [address] (PAXIL) 40 2-23 [facility] tablet 10:23: nightly. [address] OXcarbazepi 2017-0 Yes 600mg Q.[id number] Take [address] ne 2-23 [id number] mg by [facility] (TRILEPTAL) 10:23: 3D mouth 3 Med ical 600 MG 59 (three) Center tablet times daily. PARoxetine 2017-0 Yes 40mg QD Take [address] (PAXIL) 40 2-23 [facility] tablet 10:23: nightly. [address] OXcarbazepi 2017-0 Yes 600mg Q.[id number] Take [address] ne 2-23 [id number] mg by [facility] (TRILEPTAL) 10:23: 3D mouth 3 Med ical 600 MG 59 (three) Center tablet times daily. OXcarbazepi 2017-0 Yes 600mg Q.[id number] Take [address] ne 2-23 [id number] mg by [facility] (TRILEPTAL) 10:23: 3D mouth 3 Med ical 600 MG 59 (three) Center tablet times daily. PARoxetine 2017-0 Yes 40mg QD Take [address] (PAXIL) 40 2-23 [facility] tablet 10:23: nightly. [address] OXcarbazepi 2017-0 Yes 600mg Q.[id number] Take [address] ne 2-23 [id number] mg by [facility] (TRILEPTAL) 10:23: 3D mouth 3 Med ical 600 MG 59 (three) Center tablet times daily. PARoxetine 2017-0 Yes 40mg QD Take [address] (PAXIL) 40 2-23 by mouth [facility] tablet 10:23: nightly. [address] OXcarbazepi 2017-0 Yes 600mg Q.31204006 Take [address] ne 2-23 [id number] mg by [facility] (TRILEPTAL) 10:23: 3D mouth 3 Med ical 600 MG 59 (three) Center tablet times daily. PARoxetine 2017-0 Yes 40mg QD Take [address] (PAXIL) 40 2-23 by mouth [facility] tablet 10:23: nightly. [facility] [address] [place] PARoxetine 2017-0 Yes 40mg QD Take [address] (PAXIL) 40 2-23 by mouth [facility] tablet 10:23: nightly. [facility] [address] OXcarbazepi 2017-0 Yes 600mg Q.[id number] Take [address] ne 2-23 [id number] mg by [facility] (TRILEPTAL) 10:23: 3D mouth 3 Med ical 600 MG 59 (three) Center tablet times daily. PARoxetine 2017-0 Yes 40mg QD Take [address] (PAXIL) 40 2-23 by mouth [facility] tablet 10:23: nightly. [facility] [address] [place] OXcarbazepi 2017-0 Yes 600mg Q.[id number] Take [address] ne 2-23 [id number] mg by [facility] (TRILEPTAL) 10:23: 3D mouth 3 Med ical 600 MG 59 (three) Center tablet times daily. PARoxetine 2017-0 Yes 40mg QD Take [address] (PAXIL) 40 2-23 by [facility] tablet 10:23: nightly. [address] OXcarbazepi 2017-0 Yes 600mg Q.[id number] Take [address] ne 2-23 [id number] mg by [facility] (TRILEPTAL) 10:23: 3D mouth 3 Med ical 600 MG 59 (three) Center tablet times daily. PARoxetine 2017-0 Yes 40mg QD Take [address] (PAXIL) 40 2-23 by mouth [facility] tablet 10:23: nightly. [facility] [address] [place] OXcarbazepi 2017-0 Yes 600mg Q.31547906 Take [address] ne 2-23 [id number] mg by [facility] (TRILEPTAL) 10:23: 3D mouth 3 Med ical 600 MG 59 (three) Center tablet times daily. PARoxetine 2017-0 Yes 40mg QD Take [address] (PAXIL) 40 2-23 by mouth [facility] tablet 10:23: nightly. [facility] anjelica [address] [place] OXcarbazepi 2017-0 Yes 600mg Q.[id number] Take [address] ne 2-23 [id number] mg by [facility] (TRILEPTAL) 10:23: 3D mouth 3 Med ical 600 MG 59 (three) Center tablet times daily. PARoxetine 2017-0 Yes 40mg QD Take [address] (PAXIL) 40 2-23 by mouth [facility] tablet 10:23: nightly. [facility] anjelica [address] [place] OXcarbazepi 2017-0 Yes 600mg Q.[id number] Take [address] ne 2-23 [id number] mg by [facility] (TRILEPTAL) 10:23: 3D mouth 3 Med ical 600 MG 59 (three) Center tablet times daily. PARoxetine 2017-0 Yes 40mg QD Take [address] (PAXIL) 40 2-23 by mouth [facility] tablet 10:23: nightly. [facility] anjelica [address] [place] OXcarbazepi 2017-0 Yes 600mg Q.[id number] Take [address] ne 2-23 [id number] mg by [facility] (TRILEPTAL) 10:23: 3D mouth 3 Med ical 600 MG 59 (three) Center tablet times daily. PARoxetine 2017-0 Yes 40mg QD Take [address] (PAXIL) 40 2-23 by mouth [facility] tablet 10:23: nightly. [facility] [address] [place] OXcarbazepi 2017-0 Yes 600mg Q.[id number] Take [address] ne 2-23 [id number] mg by [facility] (TRILEPTAL) 10:23: 3D mouth 3 Med ical 600 MG 59 (three) Center tablet times daily. OXcarbazepi 2017-0 Yes 600mg Q.[id number] Take [address] ne 2-23 [id number] mg by [facility] (TRILEPTAL) 10:23: 3D mouth 3 Med ical 600 MG 59 (three) Center tablet times daily. PARoxetine 2017-0 Yes 40mg QD Take [address] (PAXIL) 40 2-23 by mouth [facility] tablet 10:23: nightly. [address] OXcarbazepi 2017-0 Yes 600mg Q.[id number] Take [address] ne 2-23 [id number] mg by [facility] (TRILEPTAL) 10:23: 3D mouth 3 Med ical 600 MG 59 (three) Center tablet times daily. PARoxetine 2017-0 Yes 40mg QD Take [address] (PAXIL) 40 2-23 by mouth [facility] tablet 10:23: nightly. [address] OXcarbazepi 2017-0 Yes 600mg Q.[id number] Take [address] ne 2-23 [id number] mg by [facility] (TRILEPTAL) 10:23: 3D mouth 3 Med ical 600 MG 59 (three) Center tablet times daily. PARoxetine 2017-0 Yes 40mg QD Take [address] (PAXIL) 40 2-23 by mouth [facility] tablet 10:23: nightly. [address] OXcarbazepi 2017-0 Yes 600mg Q.47597699 Take [address] ne 2-23 [id number] mg by [facility] (TRILEPTAL) 10:23: 3D mouth 3 Med ical 600 MG 59 (three) Center tablet times daily. PARoxetine 2017-0 Yes 40mg QD Take [address] (PAXIL) 40 2-23 by mouth [facility] tablet 10:23: nightly. [address] PARoxetine 2017-0 Yes 40mg QD Take [address] (PAXIL) 40 2-23 by mouth [facility] tablet 10:23: nightly. [address] OXcarbazepi 2017-0 Yes 600mg Q.[id number] Take [address] ne 2-23 [id number] mg by [facility] (TRILEPTAL) 10:23: 3D mouth 3 Med ical 600 MG 59 (three) Center tablet times daily. PARoxetine 2017-0 Yes 40mg QD Take [address] (PAXIL) 40 2-23 by mouth [facility] tablet 10:23: nightly. [address] OXcarbazepi 2017-0 Yes 600mg Q.[id number] Take [address] ne 2-23 [id number] mg by [facility] (TRILEPTAL) 10:23: 3D mouth 3 Med ical 600 MG 59 (three) Center tablet times daily. PARoxetine 2017-0 Yes 40mg QD Take [address] (PAXIL) 40 2-23 by mouth [facility] tablet 10:23: nightly. [address] 2017-0 Yes 600mg Q.[id number] Take [address] ne 2-23 [id number] mg by [facility] (TRILEPTAL) 10:23: 3D mouth 3 Med ical 600 MG 59 (three) Center tablet times daily. PARoxetine 2017-0 Yes 40mg QD Take [address] (PAXIL) 40 2-23 by mouth [facility] tablet 10:23: nightly. [address] 2017-0 Yes 600mg Q.[id number] Take [address] ne 2-23 [id number] mg by [facility] (TRILEPTAL) 10:23: 3D mouth 3 Med ical 600 MG 59 (three) Center tablet times daily. PARoxetine 2017-0 Yes 40mg QD Take [address] (PAXIL) 40 2-23 by mouth [facility] tablet 10:23: nightly. [address] 2017-0 Yes 600mg Q.[id number] Take [address] ne 2-23 [id number] mg by [facility] (TRILEPTAL) 10:23: 3D mouth 3 Med ical 600 MG 59 (three) Center tablet times daily. PARoxetine 2017-0 Yes 40mg QD Take [address] (PAXIL) 40 2-23 by mouth [facility] tablet 10:23: nightly. [address] 2017-0 Yes 600mg Q.[id number] Take [address] ne 2-23 [id number] mg by [facility] (TRILEPTAL) 10:23: 3D mouth 3 Med ical 600 MG 59 (three) Center tablet times daily. PARoxetine 2017-0 Yes 40mg QD Take [address] (PAXIL) 40 2-23 by mouth [facility] tablet 10:23: nightly. [address] 2017-0 Yes 600mg Q.79489953 Take [address] ne 2-23 [id number] mg by [facility] (TRILEPTAL) 10:23: 3D mouth 3 Med ical 600 MG 59 (three) Center tablet times daily. PARoxetine 2017-0 Yes 40mg QD Take [address] (PAXIL) 40 2-23 by mouth [facility] tablet 10:23: nightly. [address] OXcarbazepi 2017-0 Yes 600mg Q.[id number] Take [address] ne 2-23 [id number] mg by [facility] (TRILEPTAL) 10:23: 3D mouth 3 Med ical 600 MG 59 (three) Center tablet times daily. OXcarbazepi 2017-0 Yes 600mg Q.13122901 Take [address] ne 2-23 [id number] mg by [facility] (TRILEPTAL) 10:23: 3D mouth 3 Med ical 600 MG 59 (three) Center tablet times daily. PARoxetine 2017-0 Yes 40mg QD Take [address] (PAXIL) 40 2-23 by mouth [facility] tablet 10:23: nightly. [address] OXcarbazepi 2017-0 Yes 600mg Q.[id number] Take [address] ne 2-23 [id number] mg by [facility] (TRILEPTAL) 10:23: 3D mouth 3 Med ical 600 MG 59 (three) Center tablet times daily. PARoxetine 2017-0 Yes 40mg QD Take [address] (PAXIL) 40 2-23 by mouth [facility] tablet 10:23: nightly. [address] OXcarbazepi 2017-0 Yes 600mg Q.[id number] Take [address] ne 2-23 [id number] mg by [facility] (TRILEPTAL) 10:23: 3D mouth 3 Med ical 600 MG 59 (three) Center tablet times daily. PARoxetine 2017-0 Yes 40mg QD Take [address] (PAXIL) 40 2-23 by mouth [facility] tablet 10:23: nightly. [address] PARoxetine 2017-0 Yes 40mg QD Take [address] (PAXIL) 40 2-23 by mouth [facility] tablet 10:23: nightly. [address] OXcarbazepi 2017-0 Yes 600mg Q.[id number] Take [address] ne 2-23 [id number] mg by [facility] (TRILEPTAL) 10:23: 3D mouth 3 Med ical 600 MG 59 (three) Center tablet times daily. PARoxetine 2017-0 Yes 40mg QD Take [address] (PAXIL) 40 2-23 by mouth [facility] tablet 10:23: nightly. [facility] [address] OXcarbazepi 2017-0 Yes 600mg Q.56213829 Take [address] ne 2-23 [id number] mg by [facility] (TRILEPTAL) 10:23: 3D mouth 3 Med ical 600 MG 59 (three) Center tablet times daily. PARoxetine 2017-0 Yes 40mg QD Take [address] (PAXIL) 40 2-23 by mouth [facility] tablet 10:23: nightly. [facility] [address] LORazepam 2017-0 Yes 1mg Take 1 [facility] [...] Goal Plan of Care Note [code = 35744-7] Goal Plan of Care Note [code = 97853-8] Goal Plan of Care Note [code = 66219-0] Goal Plan of Care Note [code = 38962-8] Goal Plan of Care Note [code = 54869-8] Goal Plan of Care Note [code = 64154-1] Goal Plan of Care Note [code = 81324-2] Goal Plan of Care Note [code = 97925-8] Goal Plan of Care Note [code = 65591-5] Goal Plan of Care Note [code = 21962-2] Goal Plan of Care Note [code = 38797-6] Goal Plan of Care Note [code = 22414-3] Goal Plan of Care Note [code = 36438-3] Goal Plan of Care Note [code = 62365-2] Goal Plan of Care Note [code = 20156-1] Goal Plan of Care Note [code = 84336-4] Goal Plan of Care Note [code = 11804-2] Goal Plan of Care Note [code = 49736-9] Goal Plan of Care Note [code = 59167-0] Goal Plan of Care Note [code = 92839-5] Goal Plan of Care Note [code = 25494-0] Goal Plan of Care Note [code = 66669-3] Goal Plan of Care Note [code = 46523-8] Goal Plan of Care Note [code = 93581-3] Goal Plan of Care Note [code = 67419-1] Goal Plan of Care Note [code = 59693-0] Goal Plan of Care Note [code = 68472-4] Goal Plan of Care Note [code = 87973-5] Goal Plan of Care Note [code = 35920-9] Goal Plan of Care Note [code = 03699-6] Goal Plan of Care Note [code = 46115-8] Goal Plan of Care Note [code = 52587-6] Goal Plan of Care Note [code = 66062-7] Goal Plan of Care Note [code = 31544-1] Goal Plan of Care Note [code = 78457-6] Goal Plan of Care Note [code = 19720-6] Goal Plan of Care Note [code = 60608-6] Goal Plan of Care Note [code = 38646-9] Goal Plan of Care Note [code = 50353-1] Goal Plan of Care Note [code = 64260-6] Goal Plan of Care Note [code = 78282-0] Goal Plan of Care Note [code = 84123-8] Goal Plan of Care Note [code = 26663-0] Goal Plan of Care Note [code = 48885-8] Goal Plan of Care Note [code = 08181-1] Goal Plan of Care Note [code = 18366-8] Goal Plan of Care Note [code = 23853-3] Goal Plan of Care Note [code = 50788-6] Goal Plan of Care Note [code = 25778-4] Goal Plan of Care Note [code = 21994-2] Goal Plan of Care Note [code = 53700-3] Goal Plan of Care Note [code = 31215-2] Goal Plan of Care Note [code = 51776-6] Goal Plan of Care Note [code = 14983-0] Goal Plan of Care Note [code = 87613-3] Goal Plan of Care Note [code = 89476-1] Goal Plan of Care Note [code = 40162-6] Goal Plan of Care Note [code = 35062-9] Goal Plan of Care Note [code = 27630-5] Goal Plan of Care Note [code = 53158-7] Goal Plan of Care Note [code = 62712-4] Goal Plan of Care Note [code = 47642-1] Goal Plan of Care Note [code = 66354-8] Goal Plan of Care Note [code = 69721-4] Goal Plan of Care Note [code = 25725-9] Goal Plan of Care Note [code = 84405-7] Goal Plan of Care Note [code = 96863-9] Goal Plan of Care Note [code = 02811-0] Goal Plan of Care Note [code = 53625-6] Goal Plan of Care Note [code = 38805-1] Goal Plan of Care Note [code = 65578-5] Goal Plan of Care Note [code = 99155-0] Goal Plan of Care Note [code = 70969-6] Goal Plan of Care Note [code = 67054-7] Goal Plan of Care Note [code = 03947-8] Goal Plan of Care Note [code = 69633-6] Goal Plan of Care Note [code = 49435-5] Goal Plan of Care Note [code = 73842-2] Goal Plan of Care Note [code = 28030-8] Goal Plan of Care Note [code = 27786-6] Goal Plan of Care Note [code = 51835-8] Goal Plan of Care Note [code = 00752-7] Goal Plan of Care Note [code = 31388-7] Goal Plan of Care Note [code = 45856-4] Goal Plan of Care Note [code = 55246-2] Goal Plan of Care Note [code = 10854-5] Goal Plan of Care Note [code = 25109-1] Goal Plan of Care Note [code = 60976-5] Goal Plan of Care Note [code = 65931-6] Goal Plan of Care Note [code = 94077-3] Goal Plan of Care Note [code = 16886-6] Goal Plan of Care Note [code = 80339-3] Goal Plan of Care Note [code = 47442-1] Goal Plan of Care Note [code = 15342-6] Goal Plan of Care Note [code = 63052-5] Goal Plan of Care Note [code = 85319-2] Goal Plan of Care Note [code = 06315-1] Goal Plan of Care Note [code = 86766-8] Goal Plan of Care Note [code = 11974-5] Goal Plan of Care Note [code = 80762-9] Goal Plan of Care Note [code = 42997-3] Goal Plan of Care Note [code = 22158-3] Goal Plan of Care Note [code = 33480-5] Goal Plan of Care Note [code = 48962-8] Goal Plan of Care Note [code = 87194-5] Goal Plan of Care Note [code = 99821-4] Goal Plan of Care Note [code = 23342-2] Goal Plan of Care Note [code = 75443-2] Goal Plan of Care Note [code = 49481-6] Goal Plan of Care Note [code = 12063-3] Goal Plan of Care Note [code = 99630-3] Goal Plan of Care Note [code = 08228-9] Goal Plan of Care Note [code = 29132-6] Goal Plan of Care Note [code = 24519-0] Goal Plan of Care Note [code = 24083-0] Goal Plan of Care Note [code = 26535-1] Goal Plan of Care Note [code = 40826-6] Goal Plan of Care Note [code = 80299-3] Goal Plan of Care Note [code = 30880-6] Goal Plan of Care Note [code = 95849-8] Goal Plan of Care Note [code = 37925-4] Goal Plan of Care Note [code = 79297-4] Goal Plan of Care Note [code = 98238-4] Goal Plan of Care Note [code = 22738-4] Goal Plan of Care Note [code = 34630-5] Goal Plan of Care Note [code = 40558-7] Goal Plan of Care Note [code = 03058-2] Goal Plan of Care Note [code = 12688-5] Goal Plan of Care Note [code = 62356-9] Goal Plan of Care Note [code = 40862-2] Goal Plan of Care Note [code = 39565-7] Goal Plan of Care Note [code = 83846-8] Goal Plan of Care Note [code = 49096-5] Goal Plan of Care Note [code = 74763-6] Goal Plan of Care Note [code = 66045-3] Goal Plan of Care Note [code = 84473-3] Goal Plan of Care Note [code = 09781-2] Goal Plan of Care Note [code = 39458-3] Goal Plan of Care Note [code = 01271-8] Goal Plan of Care Note [code = 81860-4] Goal Plan of Care Note [code = 92837-3] Goal Plan of Care Note [code = 87889-2] Goal Plan of Care Note [code = 12970-9] Goal Plan of Care Note [code = 27365-6] Goal Plan of Care Note [code = 12806-0] Goal Plan of Care Note [code = 00359-7] Goal Plan of Care Note [code = 13394-9] Goal Plan of Care Note [code = 42691-4] Goal Plan of Care Note [code = 73703-9] Goal Plan of Care Note [code = 72889-4] Goal Plan of Care Note [code = 44884-5] Goal Plan of Care Note [code = 22273-5] Goal Plan of Care Note [code = 01437-2] Goal Plan of Care Note [code = 77435-9] Goal Plan of Care Note [code = 16802-9] Goal Plan of Care Note [code = 11043-9] Goal Plan of Care Note [code = 43712-5] Goal Plan of Care Note [code = 66045-3] Goal Plan of Care Note [code = 38862-2] Goal Plan of Care Note [code = 90809-8] Goal Plan of Care Note [code = 71481-8] Goal Plan of Care Note [code = 54795-3] Goal Plan of Care Note [code = 34615-5] Goal Plan of Care Note [code = 81081-9] Goal Plan of Care Note [code = 47603-5] Goal Plan of Care Note [code = 48984-4] Goal Plan of Care Note [code = 57815-1] Goal Plan of Care Note [code = 26475-5] Goal Plan of Care Note [code = 15143-4] Goal Plan of Care Note [code = 20424-0] Goal Plan of Care Note [code = 46950-9] Goal Plan of Care Note [code = 31084-0] Goal Plan of Care Note [code = 77198-3] Goal Plan of Care Note [code = 66615-8] Goal Plan of Care Note [code = 82034-9] Goal Plan of Care Note [code = 11833-6] Goal Plan of Care Note [code = 41715-8] Goal Plan of Care Note [code = 14096-1] Goal Plan of Care Note [code = 02204-8] Goal Plan of Care Note [code = 26266-6] Goal Plan of Care Note [code = 52180-8] Goal Plan of Care Note [code = 82422-5] Goal Plan of Care Note [code = 89959-1] Goal Plan of Care Note [code = 99939-3] Goal Plan of Care Note [code = 78261-3] Goal Plan of Care Note [code = 75206-7] Goal Plan of Care Note [code = 14890-0] Goal Plan of Care Note [code = 10983-5] Goal Plan of Care Note [code = 85053-1] Goal Plan of Care Note [code = 09709-0] Goal Plan of Care Note [code = 43646-1] Goal Plan of Care Note [code = 33123-3] Goal Plan of Care Note [code = 74661-4] Goal Plan of Care Note [code = 06394-6] Goal Plan of Care Note [code = 63429-3] Goal Plan of Care Note [code = 16329-1] Goal Plan of Care Note [code = 65666-6] Goal Plan of Care Note [code = 48455-8] Goal Plan of Care Note [code = 35955-8] Goal Plan of Care Note [code = 94326-0] Goal Plan of Care Note [code = 87391-1] Goal Plan of Care Note [code = 19954-9] Goal Plan of Care Note [code = 12434-0] Goal Plan of Care Note [code = 18122-4] Goal Plan of Care Note [code = 77659-7] Goal Plan of Care Note [code = 85572-5] Goal Plan of Care Note [code = 31111-6] Goal Plan of Care Note [code = 82734-1] Encounters Start End Encounter Admission Attending Care Care Encounter Source Date/Time Date/Time Type Type Clinicians Facility Department ID 2021-06-01 Outpatient [facility] [id number] Lonjuan ramon 01:36:29 [id number] [facility] 2022-05-24 2022-05-24 Outpatient LYDIA FREEMAN [id number] Cristian 10:36:59 10:36:59 0318 Saray Jerman 2022-02-11 2022-02-11 Outpatient LYDIA SFA [id number] Cristian 09:04:48 09:04:48 1206 F Jerman 2022-02-10 2022-02-10 Outpatient SFA SFA [id number] Cristian 09:29:34 09:29:34 1205 F Jerman 2022-02-10 2022-02-10 Outpatient [id number] 00:00:00 00:00:00 Visit 4089-4cab 089-4cab-9 -7hc7-r5i bf5-m9q867 [id number] bafa93 2022-01-10 2022-01-10 Outpatient SFA SFA [id number] 022 Cristian 09:16:14 09:16:14 1104 F Jerman 2022-01-10 2022-01-10 Outpatient [id number]- [id number] accaa6-a 00:00:00 00:00:00 Visit aca9-4c83 ca9-4c83-a -m9zm-ot3 7eb-bc13f3 3k8j730k3 f032f9 2021-12-19 2021-12-19 Outpatient SFA SFA [id number] 022 Cristian 16:11:31 16:11:31 1013 F Jerman 2021-12-19 2021-12-19 Outpatient [id number] 00:00:00 00:00:00 Visit g846-059t 770-441f-a -adae-62b amelia-62bace ktvtn11ce fd81af 2021-09-17 2021-09-17 Outpatient [id number]- [id number] x7wkyq-4 00:00:00 00:00:00 Visit 935a-4f50 35a-4f50-b -o91h-l1x 77d-c2ba85 [id number] 2020-08-03 2020-08-03 Outpatient MATT VÁSQUEZ [facility] [id number] [facility] 10:00:00 10:00:00 MATT SIMPSON pat [facility] 2020-07-25 2020-07-25 Mitch FISH [id number] 00:00:00 00:00:00 Only Unassigned, B[facility] 350.1.13.10 [facility] [id number] [id number] 2019-09-26 2019-09-26 Outpatient R RAGHU, [facility] [id number] [facility] 16:00:00 16:00:00 WALLY yeager [facility] 2018-10-21 2018-10-21 Telephone Gramm, [facility] [id number] 00:00:00 00:00:00 Natacha Nguyen [id number] [place] [id number] Kelseyio [id number] nal [address] Building Results Test Description Test Time Test Comments Results Result Comments Source TSH, THIRD GENERATION 2022-05-26 02:57:49 Test Item Value Reference Range Interpretation Comme nts TSH, THIRD GENERATION (test code = 2821) 6.350 UIU/ML 0.400-4.100 H LIPID [id number] 01:09:34 Test Item Value Reference Range Interpretation [...] MOREINFORMATION , SEE CLIENT ANNOUNCE MENT AT [email or web address] LDL/HDL 2.73 RATIO <3.22 [facility] has important (test code = 2238) pathology staff changes effecti ve 05/07/2022. New pathology staff will provide uninter rupted, excellent patie nt care and clinical consultation. S ee URL: [email or web address]. UNLES S OTHERWISE INDIC ATED, ALL TESTING PER FORMED AT [facility] [place]. [address] [place] [address] ISIDRA SUH DIRECTOR: CAM GUTHRIE M.D. C CONNOR NUMBER [id number] CAP ACCREDITATION N O. [id number] HEMOGLOBIN [id number] 03:17:24 Test Item Value Reference Range Interpretation Comments HEMOGLOBIN A1c (test 6.4 % 4.2-5.6 H AMERIC AN DIABETES code = 97479) ASSOCIATION IDELINES FOR HGB A1C: PREDIABETES/INC REASED [...] TESTING OR LABORATORY C ONSULTATION. TSH, THIRD [id number] 05:15:49 Test Item Value Reference Range Interpretation Comments TSH, THIRD GENERATION (test code 2.080 UIU/ML 0.400-4.100 = 2821) HEMOGLOBIN [id number] 03:46:00 Test Item Value Reference Range Interpretation Comments HEMOGLOBIN A1c (test 6.6 % 4.2-5.6 H AMERI CAN DIABETES code = 30397) ASSOCIATION [employer]LIN[employer] FOR HGB A1C: PREDIABETES/INC REASED [...] INDICATED, ALL TESTING PER FORMED ATCLINICAL PATH [facility], [facility]. [address] [place] [address]37 LABORATORY DIRE CTOR: Andrew BROWN NUMBER [id number] [place]. [id number] LIPID [id number] 02:59:52 Test Item Value Reference Range Interpretation [...] MOREINFORMATION , SEE CLIENT ANNOUNCE MENT AT [email or web address] RISK RATIO LDL/HDL 4.02 RATIO <3.22 H (test code = 2238) [id number] 00:00:00 Test Item Value Reference Range Interpretation Comments TSH, THIRD GENERATION (test code 2.080 UIU/ML = 2821) [id number] 00:00:00 Test Item Value Reference Range Interpretation Comments TSH, THIRD GENERATION (test code 2.080 UIU/ML = 2821) [id number] 00:00:00 Test Item Value Reference Range Interpretation Comments TSH, THIRD GENERATION (test code 2.080 UIU/ML = 2821) LIPID [id number] 00:00:00 Test Item Value Reference Range Interpretation Comments CHOLESTEROL (test code = 2210) 292 MG/DL TRIGLYCERIDES (test code = 2232) 184 MG/DL HDL CHOLESTEROL (test code = 2220) 51 MG/DL CALC LDL CHOL (test code = 2237) 205 MG/DL RISK RATIO LDL/HDL (test code = 4.02 RATIO 2238) LIPID [id number] 00:00:00 Test Item Value Reference Range Interpretation Comments CHOLESTEROL (test code = 2210) 292 MG/DL TRIGLYCERIDES (test code = 2232) 184 MG/DL HDL CHOLESTEROL (test code = 2220) 51 MG/DL CALC LDL CHOL (test code = 2237) 205 MG/DL RISK RATIO LDL/HDL (test code = 4.02 RATIO 2238) HEMOGLOBIN [id number] 00:00:00 Test Item Value Reference Range Interpretation Comments HEMOGLOBIN A1c (test code = 17264) 6.6 % HEMOGLOBIN [id number] 00:00:00 Test Item Value Reference Range Interpretation Comments HEMOGLOBIN A1c (test code = 41294) 6.6 % HEMOGLOBIN [id number] 00:00:00 Test Item Value Reference Range Interpretation Comments HEMOGLOBIN A1c (test code = 52809) 6.6 % [id number] 00:00:00 Test Item Value Reference Range Interpretation Comments TSH, THIRD GENERATION (test code 2.080 UIU/ML = 2821) [id number] 00:00:00 Test Item Value Reference Range Interpretation Comments TSH, THIRD GENERATION (test code 2.080 UIU/ML = 2821) [id number] 00:00:00 Test Item Value Reference Range Interpretation Comments TSH, THIRD GENERATION (test code 2.080 UIU/ML = 2821) LIPID [id number] 00:00:00 Test Item Value Reference Range Interpretation Comments CHOLESTEROL (test code = 2210) 292 MG/DL TRIGLYCERIDES (test code = 2232) 184 MG/DL HDL CHOLESTEROL (test code = 2220) 51 MG/DL CALC LDL CHOL (test code = 2237) 205 MG/DL RISK RATIO LDL/HDL (test code = 4.02 RATIO 2238) LIPID [id number] 00:00:00 Test Item Value Reference Range Interpretation Comments CHOLESTEROL (test code = 2210) 292 MG/DL TRIGLYCERIDES (test code = 2232) 184 MG/DL HDL CHOLESTEROL (test code = 2220) 51 MG/DL CALC LDL CHOL (test code = 2237) 205 MG/DL RISK RATIO LDL/HDL (test code = 4.02 RATIO 2238) HEMOGLOBIN [id number] 00:00:00 Test Item Value Reference Range Interpretation Comments HEMOGLOBIN A1c (test code = 81195) 6.6 % HEMOGLOBIN [id number] 00:00:00 Test Item Value Reference Range Interpretation Comments HEMOGLOBIN A1c (test code = 00875) 6.6 % HEMOGLOBIN [id number] 00:00:00 Test Item Value Reference Range Interpretation Comments HEMOGLOBIN A1c (test code = 22540) 6.6 % [id number] 00:00:00 Test Item Value Reference Range Interpretation Comments TSH, THIRD GENERATION (test code 2.080 UIU/ML = 2821) [id number] 00:00:00 Test Item Value Reference Range Interpretation Comments TSH, THIRD GENERATION (test code 2.080 UIU/ML = 2821) LIPID [id number] 00:00:00 Test Item Value Reference Range Interpretation Comments CHOLESTEROL (test code = 2210) 292 MG/DL TRIGLYCERIDES (test code = 2232) 184 MG/DL HDL CHOLESTEROL (test code = 2220) 51 MG/DL CALC LDL CHOL (test code = 2237) 205 MG/DL RISK RATIO LDL/HDL (test code = 4.02 RATIO 2238) HEMOGLOBIN [id number] 00:00:00 Test Item Value Reference Range Interpretation Comments HEMOGLOBIN A1c (test code = 75082) 6.6 % HEMOGLOBIN [id number] 00:00:00 Test Item Value Reference Range Interpretation Comments HEMOGLOBIN A1c (test code = 66776) 6.6 % [id number] 00:00:00 Test Item Value Reference Range Interpretation Comments TSH, THIRD GENERATION (test code 2.080 UIU/ML = 2821) [id number] 00:00:00 Test Item Value Reference Range Interpretation Comments TSH, THIRD GENERATION (test code 2.080 UIU/ML = 2821) [id number] 00:00:00 Test Item Value Reference Range Interpretation Comments TSH, THIRD GENERATION (test code 2.080 UIU/ML = 2821) LIPID [id number] 00:00:00 Test Item Value Reference Range Interpretation Comments CHOLESTEROL (test code = 2210) 292 MG/DL TRIGLYCERIDES (test code = 2232) 184 MG/DL HDL CHOLESTEROL (test code = 2220) 51 MG/DL CALC LDL CHOL (test code = 2237) 205 MG/DL RISK RATIO LDL/HDL (test code = 4.02 RATIO 2238) LIPID [id number] 00:00:00 Test Item Value Reference Range Interpretation Comments CHOLESTEROL (test code = 2210) 292 MG/DL TRIGLYCERIDES (test code = 2232) 184 MG/DL HDL CHOLESTEROL (test code = 2220) 51 MG/DL CALC LDL CHOL (test code = 2237) 205 MG/DL RISK RATIO LDL/HDL (test code = 4.02 RATIO 2238) HEMOGLOBIN [id number] 00:00:00 Test Item Value Reference Range Interpretation Comments HEMOGLOBIN A1c (test code = 93217) 6.6 % HEMOGLOBIN [id number] 00:00:00 Test Item Value Reference Range Interpretation Comments HEMOGLOBIN A1c (test code = 06459) 6.6 % HEMOGLOBIN [id number] 00:00:00 Test Item Value Reference Range Interpretation Comments HEMOGLOBIN A1c (test code = 52792) 6.6 % HEMOGLOBIN [id number] 00:00:00 Test Item Value Reference Range Interpretation Comments HEMOGLOBIN A1c (test code = 24188) 6.8 % HEMOGLOBIN [id number] 00:00:00 Test Item Value Reference Range Interpretation Comments HEMOGLOBIN A1c (test code = 07470) 6.8 % HEMOGLOBIN [id number] 00:00:00 Test Item Value Reference Range Interpretation Comments HEMOGLOBIN A1c (test code = 22466) 6.8 % LIPID [id number] 00:00:00 Test Item Value Reference Range Interpretation Comments CHOLESTEROL (test code = 2210) 303 MG/DL TRIGLYCERIDES (test code = 2232) 191 MG/DL HDL CHOLESTEROL (test code = 2220) 61 MG/DL CALC LDL CHOL (test code = 2237) 205 MG/DL RISK RATIO LDL/HDL (test code = 3.36 RATIO 2238) LIPID [id number] 00:00:00 Test Item Value Reference Range Interpretation Comments CHOLESTEROL (test code = 2210) 303 MG/DL TRIGLYCERIDES (test code = 2232) 191 MG/DL HDL CHOLESTEROL (test code = 2220) 61 MG/DL CALC LDL CHOL (test code = 2237) 205 MG/DL RISK RATIO LDL/HDL (test code = 3.36 RATIO 2238) [id number] 00:00:00 Test Item Value Reference Range Interpretation Comments TSH, THIRD GENERATION (test code 0.769 UIU/ML = 2821) [id number] 00:00:00 Test Item Value Reference Range Interpretation Comments TSH, THIRD GENERATION (test code 0.769 UIU/ML = 2821) [id number] 00:00:00 Test Item Value Reference Range Interpretation Comments TSH, THIRD GENERATION (test code 0.769 UIU/ML = 2821) COMPREHENSIVE METABOLIC [id number] 00:00:00 Test Item Value Reference Range Interpretation Comments GLUCOSE (test code = 2217) 131 MG/DL BUN (test code = 2208) 13 MG/DL CREATININE (test code = 2214) 0.65 MG/DL eGFR AMER. (test code 113 ML/MIN/1.73 = 60306) eGFR NON- AMER. (test 97 ML/MIN/1.73 code = 80984) CALC BUN/CREAT (test code = 20 RATIO [...] code = 2219) 23 U/L COMPREHENSIVE METABOLIC [id number] 00:00:00 Test Item Value Reference Range Interpretation Comments GLUCOSE (test code = 2217) 131 MG/DL BUN (test code = 2208) 13 MG/DL CREATININE (test code = 2214) 0.65 MG/DL eGFR AMER. (test code 113 ML/MIN/1.73 = 70669) eGFR NON- AMER. (test 97 ML/MIN/1.73 code = 22635) CALC BUN/CREAT (test code = 20 RATIO [...] (test code = 2219) 23 U/L HEMOGLOBIN [id number] 00:00:00 Test Item Value Reference Range Interpretation Comments HEMOGLOBIN A1c (test code = 81582) 6.8 % HEMOGLOBIN [id number] 00:00:00 Test Item Value Reference Range Interpretation Comments HEMOGLOBIN A1c (test code = 67686) 6.8 % HEMOGLOBIN [id number] 00:00:00 Test Item Value Reference Range Interpretation Comments HEMOGLOBIN A1c (test code = 07172) 6.8 % LIPID [id number] 00:00:00 Test Item Value Reference Range Interpretation Comments CHOLESTEROL (test code = 2210) 303 MG/DL TRIGLYCERIDES (test code = 2232) 191 MG/DL HDL CHOLESTEROL (test code = 2220) 61 MG/DL CALC LDL CHOL (test code = 2237) 205 MG/DL RISK RATIO LDL/HDL (test code = 3.36 RATIO 2238) LIPID [id number] 00:00:00 Test Item Value Reference Range Interpretation Comments CHOLESTEROL (test code = 2210) 303 MG/DL TRIGLYCERIDES (test code = 2232) 191 MG/DL HDL CHOLESTEROL (test code = 2220) 61 MG/DL CALC LDL CHOL (test code = 2237) 205 MG/DL RISK RATIO LDL/HDL (test code = 3.36 RATIO 2238) [id number] 00:00:00 Test Item Value Reference Range Interpretation Comments TSH, THIRD GENERATION (test code 0.769 UIU/ML = 2821) [id number] 00:00:00 Test Item Value Reference Range Interpretation Comments TSH, THIRD GENERATION (test code 0.769 UIU/ML = 2821) [id number] 00:00:00 Test Item Value Reference Range Interpretation Comments TSH, THIRD GENERATION (test code 0.769 UIU/ML = 2821) COMPREHENSIVE METABOLIC [id number] 00:00:00 Test Item Value Reference Range Interpretation Comments GLUCOSE (test code = 2217) 131 MG/DL BUN (test code = 2208) 13 MG/DL CREATININE (test code = 2214) 0.65 MG/DL eGFR AMER. (test code 113 ML/MIN/1.73 = 99265) eGFR NON- AMER. (test 97 ML/MIN/1.73 code = 89172) CALC BUN/CREAT (test code = 20 RATIO [...] code = 2219) 23 U/L COMPREHENSIVE METABOLIC [id number] 00:00:00 Test Item Value Reference Range Interpretation Comments GLUCOSE (test code = 2217) 131 MG/DL BUN (test code = 2208) 13 MG/DL CREATININE (test code = 2214) 0.65 MG/DL eGFR AMER. (test code 113 ML/MIN/1.73 = 71198) eGFR NON- AMER. (test 97 ML/MIN/1.73 code = 89012) CALC BUN/CREAT (test code = 20 RATIO [...] (test code = 2219) 23 U/L HEMOGLOBIN [id number] 00:00:00 Test Item Value Reference Range Interpretation Comments HEMOGLOBIN A1c (test code = 61723) 6.8 % HEMOGLOBIN [id number] 00:00:00 Test Item Value Reference Range Interpretation Comments HEMOGLOBIN A1c (test code = 14421) 6.8 % LIPID [id number] 00:00:00 Test Item Value Reference Range Interpretation Comments CHOLESTEROL (test code = 2210) 303 MG/DL TRIGLYCERIDES (test code = 2232) 191 MG/DL HDL CHOLESTEROL (test code = 2220) 61 MG/DL CALC LDL CHOL (test code = 2237) 205 MG/DL RISK RATIO LDL/HDL (test code = 3.36 RATIO 2238) [id number] 00:00:00 Test Item Value Reference Range Interpretation Comments TSH, THIRD GENERATION (test code 0.769 UIU/ML = 2821) [id number] 00:00:00 Test Item Value Reference Range Interpretation Comments TSH, THIRD GENERATION (test code 0.769 UIU/ML = 2821) COMPREHENSIVE METABOLIC [id number] 00:00:00 Test Item Value Reference Range Interpretation Comments GLUCOSE (test code = 2217) 131 MG/DL BUN (test code = 2208) 13 MG/DL CREATININE (test code = 2214) 0.65 MG/DL eGFR AMER. (test code 113 ML/MIN/1.73 = 39838) eGFR NON- AMER. (test 97 ML/MIN/1.73 code = 94595) CALC BUN/CREAT (test code = 20 RATIO [...] (test code = 2219) 23 U/L HEMOGLOBIN [id number] 00:00:00 Test Item Value Reference Range Interpretation Comments HEMOGLOBIN A1c (test code = 18899) 6.8 % HEMOGLOBIN [id number] 00:00:00 Test Item Value Reference Range Interpretation Comments HEMOGLOBIN A1c (test code = 66876) 6.8 % HEMOGLOBIN [id number] 00:00:00 Test Item Value Reference Range Interpretation Comments HEMOGLOBIN A1c (test code = 25532) 6.8 % LIPID [id number] 00:00:00 Test Item Value Reference Range Interpretation Comments CHOLESTEROL (test code = 2210) 303 MG/DL TRIGLYCERIDES (test code = 2232) 191 MG/DL HDL CHOLESTEROL (test code = 2220) 61 MG/DL CALC LDL CHOL (test code = 2237) 205 MG/DL RISK RATIO LDL/HDL (test code = 3.36 RATIO 2238) LIPID [id number] 00:00:00 Test Item Value Reference Range Interpretation Comments CHOLESTEROL (test code = 2210) 303 MG/DL TRIGLYCERIDES (test code = 2232) 191 MG/DL HDL CHOLESTEROL (test code = 2220) 61 MG/DL CALC LDL CHOL (test code = 2237) 205 MG/DL RISK RATIO LDL/HDL (test code = 3.36 RATIO 2238) [id number] 00:00:00 Test Item Value Reference Range Interpretation Comments TSH, THIRD GENERATION (test code 0.769 UIU/ML = 2821) [id number] 00:00:00 Test Item Value Reference Range Interpretation Comments TSH, THIRD GENERATION (test code 0.769 UIU/ML = 2821) [id number] 00:00:00 Test Item Value Reference Range Interpretation Comments TSH, THIRD GENERATION (test code 0.769 UIU/ML = 2821) COMPREHENSIVE METABOLIC [id number] 00:00:00 Test Item Value Reference Range Interpretation Comments GLUCOSE (test code = 2217) 131 MG/DL BUN (test code = 2208) 13 MG/DL CREATININE (test code = 2214) 0.65 MG/DL eGFR AMER. (test code 113 ML/MIN/1.73 = 09593) eGFR NON- AMER. (test 97 ML/MIN/1.73 code = 48757) CALC BUN/CREAT (test code = 20 RATIO [...] code = 2219) 23 U/L COMPREHENSIVE METABOLIC [id number] 00:00:00 Test Item Value Reference Range Interpretation Comments GLUCOSE (test code = 2217) 131 MG/DL BUN (test code = 2208) 13 MG/DL CREATININE (test code = 2214) 0.65 MG/DL eGFR AMER. (test code 113 ML/MIN/1.73 = 25250) eGFR NON- AMER. (test 97 ML/MIN/1.73 code = 12095) CALC BUN/CREAT (test code = 20 RATIO [...] (test code = 2219) 23 U/L HEMOGLOBIN [id number] 00:00:00 Test Item Value Reference Range Interpretation Comments HEMOGLOBIN A1c (test code = 86270) 6.6 % HEMOGLOBIN [id number] 00:00:00 Test Item Value Reference Range Interpretation Comments HEMOGLOBIN A1c (test code = 75320) 6.6 % HEMOGLOBIN [id number] 00:00:00 Test Item Value Reference Range Interpretation Comments HEMOGLOBIN A1c (test code = 27061) 6.6 % LIPID [id number] 00:00:00 Test Item Value Reference Range Interpretation Comments CHOLESTEROL (test code = 2210) 261 MG/DL TRIGLYCERIDES (test code = 2232) 159 MG/DL HDL CHOLESTEROL (test code = 2220) 82 MG/DL CALC LDL CHOL (test code = 2237) 150 MG/DL RISK RATIO LDL/HDL (test code = 1.83 RATIO 2238) LIPID [id number] 00:00:00 Test Item Value Reference Range Interpretation Comments CHOLESTEROL (test code = 2210) 261 MG/DL TRIGLYCERIDES (test code = 2232) 159 MG/DL HDL CHOLESTEROL (test code = 2220) 82 MG/DL CALC LDL CHOL (test code = 2237) 150 MG/DL RISK RATIO LDL/HDL (test code = 1.83 RATIO 2238) COMPREHENSIVE METABOLIC [id number] 00:00:00 Test Item Value Reference Range Interpretation Comments GLUCOSE (test code = 2217) 144 MG/DL BUN (test code = 2208) 15 MG/DL CREATININE (test code = 2214) 0.85 MG/DL eGFR AMER. (test code 87 ML/MIN/1.73 = 01021) eGFR NON- AMER. (test 75 ML/MIN/1.73 code = 77035) CALC BUN/CREAT (test code = 18 RATIO [...] code = 2219) 50 U/L COMPREHENSIVE METABOLIC [id number] 00:00:00 Test Item Value Reference Range Interpretation Comments GLUCOSE (test code = 2217) 144 MG/DL BUN (test code = 2208) 15 MG/DL CREATININE (test code = 2214) 0.85 MG/DL eGFR AMER. (test code 87 ML/MIN/1.73 = 86315) eGFR NON- AMER. (test 75 ML/MIN/1.73 code = 55131) CALC BUN/CREAT (test code = 18 RATIO [...] THYROX. BIND. CAPAC. (test code 1.1 = 63488) T4 (THYROXINE) (test code = 4.3 UG/DL 2819) CORRECTED T4 (FTI) (test code = 3.9 UG/DL 2820) TSH, THIRD GENERATION (test 18.900 UIU/ML code = 2821) THYROID II PROFILE (T3U, T4, T7, TSH)[id number] 00:00:00 Test Item Value Reference Range Interpretation Comments T-UPTAKE (test code = 2817) 30.2 % THYROX. BIND. CAPAC. (test code 1.1 = 70731) T4 (THYROXINE) (test code = 4.3 UG/DL 2819) CORRECTED T4 (FTI) (test code = 3.9 UG/DL 2820) TSH, THIRD GENERATION (test 18.900 UIU/ML code = 2821) HEMOGLOBIN [id number] 00:00:00 Test Item Value Reference Range Interpretation Comments HEMOGLOBIN A1c (test code = 10222) 6.6 % HEMOGLOBIN [id number] 00:00:00 Test Item Value Reference Range Interpretation Comments HEMOGLOBIN A1c (test code = 55618) 6.6 % HEMOGLOBIN [id number] 00:00:00 Test Item Value Reference Range Interpretation Comments HEMOGLOBIN A1c (test code = 92606) 6.6 % LIPID [id number] 00:00:00 Test Item Value Reference Range Interpretation Comments CHOLESTEROL (test code = 2210) 261 MG/DL TRIGLYCERIDES (test code = 2232) 159 MG/DL HDL CHOLESTEROL (test code = 2220) 82 MG/DL CALC LDL CHOL (test code = 2237) 150 MG/DL RISK RATIO LDL/HDL (test code = 1.83 RATIO 2238) LIPID [id number] 00:00:00 Test Item Value Reference Range Interpretation Comments CHOLESTEROL (test code = 2210) 261 MG/DL TRIGLYCERIDES (test code = 2232) 159 MG/DL HDL CHOLESTEROL (test code = 2220) 82 MG/DL CALC LDL CHOL (test code = 2237) 150 MG/DL RISK RATIO LDL/HDL (test code = 1.83 RATIO 2238) COMPREHENSIVE METABOLIC [id number] 00:00:00 Test Item Value Reference Range Interpretation Comments GLUCOSE (test code = 2217) 144 MG/DL BUN (test code = 2208) 15 MG/DL CREATININE (test code = 2214) 0.85 MG/DL eGFR AMER. (test code 87 ML/MIN/1.73 = 19043) eGFR NON- AMER. (test 75 ML/MIN/1.73 code = 25159) CALC BUN/CREAT (test code = 18 RATIO [...] code = 2219) 50 U/L COMPREHENSIVE METABOLIC [id number] 00:00:00 Test Item Value Reference Range Interpretation Comments GLUCOSE (test code = 2217) 144 MG/DL BUN (test code = 2208) 15 MG/DL CREATININE (test code = 2214) 0.85 MG/DL eGFR AMER. (test code 87 ML/MIN/1.73 = 82228) eGFR NON- AMER. (test 75 ML/MIN/1.73 code = 16693) CALC BUN/CREAT (test code = 18 RATIO [...] THYROX. BIND. CAPAC. (test code 1.1 = 83009) T4 (THYROXINE) (test code = 4.3 UG/DL 2819) CORRECTED T4 (FTI) (test code = 3.9 UG/DL 2820) TSH, THIRD GENERATION (test 18.900 UIU/ML code = 2821) THYROID II PROFILE (T3U, T4, T7, TSH)2020-05-23 00:00:00 Test Item Value Reference Range Interpretation Comments T-UPTAKE (test code = 2817) 30.2 % THYROX. BIND. CAPAC. (test code 1.1 = 35133) T4 (THYROXINE) (test code = 4.3 UG/DL 2819) CORRECTED T4 (FTI) (test code = 3.9 UG/DL 2820) TSH, THIRD GENERATION (test 18.900 UIU/ML code = 2821) HEMOGLOBIN [id number] 00:00:00 Test Item Value Reference Range Interpretation Comments HEMOGLOBIN A1c (test code = 03393) 6.6 % HEMOGLOBIN [id number] 00:00:00 Test Item Value Reference Range Interpretation Comments HEMOGLOBIN A1c (test code = 70949) 6.6 % LIPID [id number] 00:00:00 Test Item Value Reference Range Interpretation Comments CHOLESTEROL (test code = 2210) 261 MG/DL TRIGLYCERIDES (test code = 2232) 159 MG/DL HDL CHOLESTEROL (test code = 2220) 82 MG/DL CALC LDL CHOL (test code = 2237) 150 MG/DL RISK RATIO LDL/HDL (test code = 1.83 RATIO 2238) COMPREHENSIVE METABOLIC [id number] 00:00:00 Test Item Value Reference Range Interpretation Comments GLUCOSE (test code = 2217) 144 MG/DL BUN (test code = 2208) 15 MG/DL CREATININE (test code = 2214) 0.85 MG/DL eGFR AMER. (test code 87 ML/MIN/1.73 = 37912) eGFR NON- AMER. (test 75 ML/MIN/1.73 code = 69768) CALC BUN/CREAT (test code = 18 RATIO [...] THYROX. BIND. CAPAC. (test code 1.1 = 27785) T4 (THYROXINE) (test code = 4.3 UG/DL 2819) CORRECTED T4 (FTI) (test code = 3.9 UG/DL 2820) TSH, THIRD GENERATION (test 18.900 UIU/ML code = 2821) HEMOGLOBIN [id number] 00:00:00 Test Item Value Reference Range Interpretation Comments HEMOGLOBIN A1c (test code = 28767) 6.6 % HEMOGLOBIN [id number] 00:00:00 Test Item Value Reference Range Interpretation Comments HEMOGLOBIN A1c (test code = 14795) 6.6 % HEMOGLOBIN [id number] 00:00:00 Test Item Value Reference Range Interpretation Comments HEMOGLOBIN A1c (test code = 58090) 6.6 % LIPID [id number] 00:00:00 Test Item Value Reference Range Interpretation Comments CHOLESTEROL (test code = 2210) 261 MG/DL TRIGLYCERIDES (test code = 2232) 159 MG/DL HDL CHOLESTEROL (test code = 2220) 82 MG/DL CALC LDL CHOL (test code = 2237) 150 MG/DL RISK RATIO LDL/HDL (test code = 1.83 RATIO 2238) LIPID [id number] 00:00:00 Test Item Value Reference Range Interpretation Comments CHOLESTEROL (test code = 2210) 261 MG/DL TRIGLYCERIDES (test code = 2232) 159 MG/DL HDL CHOLESTEROL (test code = 2220) 82 MG/DL CALC LDL CHOL (test code = 2237) 150 MG/DL RISK RATIO LDL/HDL (test code = 1.83 RATIO 2238) COMPREHENSIVE METABOLIC [id number] 00:00:00 Test Item Value Reference Range Interpretation Comments GLUCOSE (test code = 2217) 144 MG/DL BUN (test code = 2208) 15 MG/DL CREATININE (test code = 2214) 0.85 MG/DL eGFR AMER. (test code 87 ML/MIN/1.73 = 45095) eGFR NON- AMER. (test 75 ML/MIN/1.73 code = 84200) CALC BUN/CREAT (test code = 18 RATIO [...] code = 2219) 50 U/L COMPREHENSIVE METABOLIC [id number] 00:00:00 Test Item Value Reference Range Interpretation Comments GLUCOSE (test code = 2217) 144 MG/DL BUN (test code = 2208) 15 MG/DL CREATININE (test code = 2214) 0.85 MG/DL eGFR AMER. (test code 87 ML/MIN/1.73 = 79033) eGFR NON- AMER. (test 75 ML/MIN/1.73 code = 58280) CALC BUN/CREAT (test code = 18 RATIO [...] THYROX. BIND. CAPAC. (test code 1.1 = 71975) T4 (THYROXINE) (test code = 4.3 UG/DL 2819) CORRECTED T4 (FTI) (test code = 3.9 UG/DL 2820) TSH, THIRD GENERATION (test 18.900 UIU/ML code = 2821) THYROID II PROFILE (T3U, T4, T7, TSH)2020-05-23 00:00:00 Test Item Value Reference Range Interpretation Comments T-UPTAKE (test code = 7) 30.2 % THYROX. BIND. CAPAC. (test code 1.1 = 11376) T4 (THYROXINE) (test code = 4.3 UG/DL 2819) CORRECTED T4 (FTI) (test code = 3.9 UG/DL 2820) TSH, THIRD GENERATION (test 18.900 UIU/ML code = 2821) HEMOGLOBIN [id number] 00:00:00 Test Item Value Reference Range Interpretation Comments HEMOGLOBIN A1c (test code = 84775) 6.7 % HEMOGLOBIN [id number] 00:00:00 Test Item Value Reference Range Interpretation Comments HEMOGLOBIN A1c (test code = 61705) 6.7 % HEMOGLOBIN [id number] 00:00:00 Test Item Value Reference Range Interpretation Comments HEMOGLOBIN A1c (test code = 53932) 6.7 % LIPID [id number] 00:00:00 Test Item Value Reference Range Interpretation Comments CHOLESTEROL (test code = 2210) 267 MG/DL TRIGLYCERIDES (test code = 2232) 137 MG/DL HDL CHOLESTEROL (test code = 2220) 48 MG/DL CALC LDL CHOL (test code = 2237) 192 MG/DL RISK RATIO LDL/HDL (test code = 4.00 RATIO 2238) LIPID [id number] 00:00:00 Test Item Value Reference Range Interpretation Comments CHOLESTEROL (test code = 2210) 267 MG/DL TRIGLYCERIDES (test code = 2232) 137 MG/DL HDL CHOLESTEROL (test code = 2220) 48 MG/DL CALC LDL CHOL (test code = 2237) 192 MG/DL RISK RATIO LDL/HDL (test code = 4.00 RATIO 2238) COMPREHENSIVE METABOLIC [id number] 00:00:00 Test Item Value Reference Range Interpretation Comments GLUCOSE (test code = 2217) 155 MG/DL BUN (test code = 2208) 14 MG/DL CREATININE (test code = 2214) 0.52 MG/DL eGFR AMER. (test code 122 ML/MIN/1.73 = 56082) eGFR NON- AMER. (test 105 ML/MIN/1.73 code = 31824) CALC BUN/CREAT (test code = 27 RATIO [...] code = 2219) 27 U/L COMPREHENSIVE METABOLIC [id number] 00:00:00 Test Item Value Reference Range Interpretation Comments GLUCOSE (test code = 2217) 155 MG/DL BUN (test code = 2208) 14 MG/DL CREATININE (test code = 2214) 0.52 MG/DL eGFR AMER. (test code 122 ML/MIN/1.73 = 26369) eGFR NON- AMER. (test 105 ML/MIN/1.73 code = 76168) CALC BUN/CREAT (test code = 27 RATIO [...] THYROX. BIND. CAPAC. (test code 1.0 = 91479) T4 (THYROXINE) (test code = 4.7 UG/DL 2819) CORRECTED T4 (FTI) (test code = 4.7 UG/DL 2820) TSH, THIRD GENERATION (test code 0.201 UIU/ML = 2821) THYROID II PROFILE (T3U, T4, T7, TSH)2019 00:00:00 Test Item Value Reference Range Interpretation Comments T-UPTAKE (test code = 7) 33.1 % THYROX. BIND. CAPAC. (test code 1.0 = 76488) T4 (THYROXINE) (test code = 4.7 UG/DL 2819) CORRECTED T4 (FTI) (test code = 4.7 UG/DL 2820) TSH, THIRD GENERATION (test code 0.201 UIU/ML = 2821) HEMOGLOBIN [id number] 00:00:00 Test Item Value Reference Range Interpretation Comments HEMOGLOBIN A1c (test code = 97504) 6.7 % HEMOGLOBIN [id number] 00:00:00 Test Item Value Reference Range Interpretation Comments HEMOGLOBIN A1c (test code = 65279) 6.7 % HEMOGLOBIN [id number] 00:00:00 Test Item Value Reference Range Interpretation Comments HEMOGLOBIN A1c (test code = 64667) 6.7 % LIPID [id number] 00:00:00 Test Item Value Reference Range Interpretation Comments CHOLESTEROL (test code = 2210) 267 MG/DL TRIGLYCERIDES (test code = 2232) 137 MG/DL HDL CHOLESTEROL (test code = 2220) 48 MG/DL CALC LDL CHOL (test code = 2237) 192 MG/DL RISK RATIO LDL/HDL (test code = 4.00 RATIO 2238) LIPID [id number] 00:00:00 Test Item Value Reference Range Interpretation Comments CHOLESTEROL (test code = 2210) 267 MG/DL TRIGLYCERIDES (test code = 2232) 137 MG/DL HDL CHOLESTEROL (test code = 2220) 48 MG/DL CALC LDL CHOL (test code = 2237) 192 MG/DL RISK RATIO LDL/HDL (test code = 4.00 RATIO 2238) COMPREHENSIVE METABOLIC [id number] 00:00:00 Test Item Value Reference Range Interpretation Comments GLUCOSE (test code = 2217) 155 MG/DL BUN (test code = 2208) 14 MG/DL CREATININE (test code = 2214) 0.52 MG/DL eGFR AMER. (test code 122 ML/MIN/1.73 = 47413) eGFR NON- AMER. (test 105 ML/MIN/1.73 code = 86289) CALC BUN/CREAT (test code = 27 RATIO [...] code = 2219) 27 U/L COMPREHENSIVE METABOLIC [id number] 00:00:00 Test Item Value Reference Range Interpretation Comments GLUCOSE (test code = 2217) 155 MG/DL BUN (test code = 2208) 14 MG/DL CREATININE (test code = 2214) 0.52 MG/DL eGFR AMER. (test code 122 ML/MIN/1.73 = 31771) eGFR NON- AMER. (test 105 ML/MIN/1.73 code = 66137) CALC BUN/CREAT (test code = 27 RATIO [...] THYROX. BIND. CAPAC. (test code 1.0 = 52776) T4 (THYROXINE) (test code = 4.7 UG/DL 2819) CORRECTED T4 (FTI) (test code = 4.7 UG/DL 2820) TSH, THIRD GENERATION (test code 0.201 UIU/ML = 2821) THYROID II PROFILE (T3U, T4, T7, TSH)2019 00:00:00 Test Item Value Reference Range Interpretation Comments T-UPTAKE (test code = 281) 33.1 % THYROX. BIND. CAPAC. (test code 1.0 = 51757) T4 (THYROXINE) (test code = 4.7 UG/DL 2819) CORRECTED T4 (FTI) (test code = 4.7 UG/DL 2820) TSH, THIRD GENERATION (test code 0.201 UIU/ML = 2821) HEMOGLOBIN [id number] 00:00:00 Test Item Value Reference Range Interpretation Comments HEMOGLOBIN A1c (test code = 90585) 6.7 % HEMOGLOBIN [id number] 00:00:00 Test Item Value Reference Range Interpretation Comments HEMOGLOBIN A1c (test code = 46548) 6.7 % LIPID [id number] 00:00:00 Test Item Value Reference Range Interpretation Comments CHOLESTEROL (test code = 2210) 267 MG/DL TRIGLYCERIDES (test code = 2232) 137 MG/DL HDL CHOLESTEROL (test code = 2220) 48 MG/DL CALC LDL CHOL (test code = 2237) 192 MG/DL RISK RATIO LDL/HDL (test code = 4.00 RATIO 2238) COMPREHENSIVE METABOLIC [id number] 00:00:00 Test Item Value Reference Range Interpretation Comments GLUCOSE (test code = 2217) 155 MG/DL BUN (test code = 2208) 14 MG/DL CREATININE (test code = 2214) 0.52 MG/DL eGFR AMER. (test code 122 ML/MIN/1.73 = 25893) eGFR NON- AMER. (test 105 ML/MIN/1.73 code = 66226) CALC BUN/CREAT (test code = 27 RATIO [...] THYROX. BIND. CAPAC. (test code 1.0 = 43686) T4 (THYROXINE) (test code = 4.7 UG/DL 2819) CORRECTED T4 (FTI) (test code = 4.7 UG/DL 2820) TSH, THIRD GENERATION (test code 0.201 UIU/ML = 2821) HEMOGLOBIN [id number] 00:00:00 Test Item Value Reference Range Interpretation Comments HEMOGLOBIN A1c (test code = 99643) 6.7 % HEMOGLOBIN [id number] 00:00:00 Test Item Value Reference Range Interpretation Comments HEMOGLOBIN A1c (test code = 31715) 6.7 % HEMOGLOBIN [id number] 00:00:00 Test Item Value Reference Range Interpretation Comments HEMOGLOBIN A1c (test code = 87861) 6.7 % LIPID [id number] 00:00:00 Test Item Value Reference Range Interpretation Comments CHOLESTEROL (test code = 2210) 267 MG/DL TRIGLYCERIDES (test code = 2232) 137 MG/DL HDL CHOLESTEROL (test code = 2220) 48 MG/DL CALC LDL CHOL (test code = 2237) 192 MG/DL RISK RATIO LDL/HDL (test code = 4.00 RATIO 2238) LIPID [id number] 00:00:00 Test Item Value Reference Range Interpretation Comments CHOLESTEROL (test code = 2210) 267 MG/DL TRIGLYCERIDES (test code = 2232) 137 MG/DL HDL CHOLESTEROL (test code = 2220) 48 MG/DL CALC LDL CHOL (test code = 2237) 192 MG/DL RISK RATIO LDL/HDL (test code = 4.00 RATIO 2238) COMPREHENSIVE METABOLIC [id number] 00:00:00 Test Item Value Reference Range Interpretation Comments GLUCOSE (test code = 2217) 155 MG/DL BUN (test code = 2208) 14 MG/DL CREATININE (test code = 2214) 0.52 MG/DL eGFR AMER. (test code 122 ML/MIN/1.73 = 29884) eGFR NON- AMER. (test 105 ML/MIN/1.73 code = 97135) CALC BUN/CREAT (test code = 27 RATIO [...] code = 2219) 27 U/L COMPREHENSIVE METABOLIC [id number] 00:00:00 Test Item Value Reference Range Interpretation Comments GLUCOSE (test code = 2217) 155 MG/DL BUN (test code = 2208) 14 MG/DL CREATININE (test code = 2214) 0.52 MG/DL eGFR AMER. (test code 122 ML/MIN/1.73 = 95971) eGFR NON- AMER. (test 105 ML/MIN/1.73 code = 80980) CALC BUN/CREAT (test code = 27 RATIO [...] THYROX. BIND. CAPAC. (test code 1.0 = 60581) T4 (THYROXINE) (test code = 4.7 UG/DL 2819) CORRECTED T4 (FTI) (test code = 4.7 UG/DL 2820) TSH, THIRD GENERATION (test code 0.201 UIU/ML = 2821) THYROID II PROFILE (T3U, T4, T7, TSH)2019 00:00:00 Test Item Value Reference Range Interpretation Comments T-UPTAKE (test code = 2817) 33.1 % THYROX. BIND. CAPAC. (test code 1.0 = 77348) T4 (THYROXINE) (test code = 4.7 UG/DL 2819) CORRECTED T4 (FTI) (test code = 4.7 UG/DL 2820) TSH, THIRD GENERATION (test code 0.201 UIU/ML = 2821) SARS-CoV-2 (COVID-19) by RT-PCR (HIGH RISK)2019-09-18 00:00:00 Test Item Value Reference Range Interpretation Comments SARS-CoV-2 INTERPRETATION (test NEGATIVE code = 82771) SOURCE (test code = 97907) NOT SPECIFIED SARS-CoV-2 (COVID-19) by RT-PCR (HIGH RISK)2019-09-18 00:00:00 Test Item Value Reference Range Interpretation Comments SARS-CoV-2 INTERPRETATION (test NEGATIVE code = 26371) SOURCE (test code = 89893) NOT SPECIFIED SARS-CoV-2 (COVID-19) by RT-PCR (HIGH RISK)2019-09-18 00:00:00 Test Item Value Reference Range Interpretation Comments SARS-CoV-2 INTERPRETATION (test NEGATIVE code = 81572) SOURCE (test code = 91184) NOT SPECIFIED SARS-CoV-2 (COVID-19) by RT-PCR (HIGH RISK)2019-09-18 00:00:00 Test Item Value Reference Range Interpretation Comments SARS-CoV-2 INTERPRETATION (test NEGATIVE code = 82949) SOURCE (test code = 93215) NOT SPECIFIED SARS-CoV-2 (COVID-19) by RT-PCR (HIGH RISK)2019-09-18 00:00:00 Test Item Value Reference Range Interpretation Comments SARS-CoV-2 INTERPRETATION (test NEGATIVE code = 99490) SOURCE (test code = 57186) NOT SPECIFIED SARS-CoV-2 (COVID-19) by RT-PCR (HIGH RISK)2019-09-18 00:00:00 Test Item Value Reference Range Interpretation Comments SARS-CoV-2 INTERPRETATION (test NEGATIVE code = 70395) SOURCE (test code = 31054) NOT SPECIFIED SARS-CoV-2 (COVID-19) by RT-PCR (HIGH RISK)2019-09-18 00:00:00 Test Item Value Reference Range Interpretation Comments SARS-CoV-2 INTERPRETATION (test NEGATIVE code = 75494) SOURCE (test code = 55913) NOT SPECIFIED [id number] 00:00:00 Test Item Value Reference Range Interpretation Comments TSH, THIRD GENERATION (test code 2.490 UIU/ML = 2821) [id number] 00:00:00 Test Item Value Reference Range Interpretation Comments TSH, THIRD GENERATION (test code 2.490 UIU/ML = 2821) [id number] 00:00:00 Test Item Value Reference Range Interpretation Comments TSH, THIRD GENERATION (test code 2.490 UIU/ML = 2821) HEMOGLOBIN [id number] 00:00:00 Test Item Value Reference Range Interpretation Comments HEMOGLOBIN A1c (test code = 67544) 6.4 % HEMOGLOBIN [id number] 00:00:00 Test Item Value Reference Range Interpretation Comments HEMOGLOBIN A1c (test code = 10785) 6.4 % HEMOGLOBIN [id number] 00:00:00 Test Item Value Reference Range Interpretation Comments HEMOGLOBIN A1c (test code = 89449) 6.4 % COMPREHENSIVE METABOLIC [id number] 00:00:00 Test Item Value Reference Range Interpretation Comments GLUCOSE (test code = 2217) 206 MG/DL BUN (test code = 2208) 23 MG/DL CREATININE (test code = 2214) 0.67 MG/DL eGFR AMER. (test code 112 ML/MIN/1.73 = 98211) eGFR NON- AMER. (test 97 ML/MIN/1.73 code = 10171) CALC BUN/CREAT (test code = 34 RATIO [...] code = 2219) 25 U/L COMPREHENSIVE METABOLIC [id number] 00:00:00 Test Item Value Reference Range Interpretation Comments GLUCOSE (test code = 2217) 206 MG/DL BUN (test code = 2208) 23 MG/DL CREATININE (test code = 2214) 0.67 MG/DL eGFR AMER. (test code 112 ML/MIN/1.73 = 44707) eGFR NON- AMER. (test 97 ML/MIN/1.73 code = 95289) CALC BUN/CREAT (test code = 34 RATIO [...] ALT (test code = 2219) 25 U/L [id number] 00:00:00 Test Item Value Reference Range Interpretation Comments TSH, THIRD GENERATION (test code 2.490 UIU/ML = 2821) [id number] 00:00:00 Test Item Value Reference Range Interpretation Comments TSH, THIRD GENERATION (test code 2.490 UIU/ML = 2821) [id number] 00:00:00 Test Item Value Reference Range Interpretation Comments TSH, THIRD GENERATION (test code 2.490 UIU/ML = 2821) HEMOGLOBIN [id number] 00:00:00 Test Item Value Reference Range Interpretation Comments HEMOGLOBIN A1c (test code = 71151) 6.4 % HEMOGLOBIN [id number] 00:00:00 Test Item Value Reference Range Interpretation Comments HEMOGLOBIN A1c (test code = 34089) 6.4 % HEMOGLOBIN [id number] 00:00:00 Test Item Value Reference Range Interpretation Comments HEMOGLOBIN A1c (test code = 48631) 6.4 % COMPREHENSIVE METABOLIC [id number] 00:00:00 Test Item Value Reference Range Interpretation Comments GLUCOSE (test code = 2217) 206 MG/DL BUN (test code = 2208) 23 MG/DL CREATININE (test code = 2214) 0.67 MG/DL eGFR AMER. (test code 112 ML/MIN/1.73 = 79014) eGFR NON- AMER. (test 97 ML/MIN/1.73 code = 55598) CALC BUN/CREAT (test code = 34 RATIO [...] code = 2219) 25 U/L COMPREHENSIVE METABOLIC [id number] 00:00:00 Test Item Value Reference Range Interpretation Comments GLUCOSE (test code = 2217) 206 MG/DL BUN (test code = 2208) 23 MG/DL CREATININE (test code = 2214) 0.67 MG/DL eGFR AMER. (test code 112 ML/MIN/1.73 = 21339) eGFR NON- AMER. (test 97 ML/MIN/1.73 code = 70499) CALC BUN/CREAT (test code = 34 RATIO [...] ALT (test code = 2219) 25 U/L [id number] 00:00:00 Test Item Value Reference Range Interpretation Comments TSH, THIRD GENERATION (test code 2.490 UIU/ML = 2821) [id number] 00:00:00 Test Item Value Reference Range Interpretation Comments TSH, THIRD GENERATION (test code 2.490 UIU/ML = 2821) HEMOGLOBIN [id number] 00:00:00 Test Item Value Reference Range Interpretation Comments HEMOGLOBIN A1c (test code = 43229) 6.4 % HEMOGLOBIN [id number] 00:00:00 Test Item Value Reference Range Interpretation Comments HEMOGLOBIN A1c (test code = 30546) 6.4 % COMPREHENSIVE METABOLIC [id number] 00:00:00 Test Item Value Reference Range Interpretation Comments GLUCOSE (test code = 2217) 206 MG/DL BUN (test code = 2208) 23 MG/DL CREATININE (test code = 2214) 0.67 MG/DL eGFR AMER. (test code 112 ML/MIN/1.73 = 89341) eGFR NON- AMER. (test 97 ML/MIN/1.73 code = 64183) CALC BUN/CREAT (test code = 34 RATIO [...] ALT (test code = 2219) 25 U/L [id number] 00:00:00 Test Item Value Reference Range Interpretation Comments TSH, THIRD GENERATION (test code 2.490 UIU/ML = 2821) [id number] 00:00:00 Test Item Value Reference Range Interpretation Comments TSH, THIRD GENERATION (test code 2.490 UIU/ML = 2821) [id number] 00:00:00 Test Item Value Reference Range Interpretation Comments TSH, THIRD GENERATION (test code 2.490 UIU/ML = 2821) HEMOGLOBIN [id number] 00:00:00 Test Item Value Reference Range Interpretation Comments HEMOGLOBIN A1c (test code = 79371) 6.4 % HEMOGLOBIN [id number] 00:00:00 Test Item Value Reference Range Interpretation Comments HEMOGLOBIN A1c (test code = 80077) 6.4 % HEMOGLOBIN [id number] 00:00:00 Test Item Value Reference Range Interpretation Comments HEMOGLOBIN A1c (test code = 48856) 6.4 % COMPREHENSIVE METABOLIC [id number] 00:00:00 Test Item Value Reference Range Interpretation Comments GLUCOSE (test code = 2217) 206 MG/DL BUN (test code = 2208) 23 MG/DL CREATININE (test code = 2214) 0.67 MG/DL eGFR AMER. (test code 112 ML/MIN/1.73 = 35141) eGFR NON- AMER. (test 97 ML/MIN/1.73 code = 26920) CALC BUN/CREAT (test code = 34 RATIO [...] code = 2219) 25 U/L COMPREHENSIVE METABOLIC [id number] 00:00:00 Test Item Value Reference Range Interpretation Comments GLUCOSE (test code = 2217) 206 MG/DL BUN (test code = 2208) 23 MG/DL CREATININE (test code = 2214) 0.67 MG/DL eGFR AMER. (test code 112 ML/MIN/1.73 = 40115) eGFR NON- AMER. (test 97 ML/MIN/1.73 code = 72183) CALC BUN/CREAT (test code = 34 RATIO [...] = 2219) 25 U/L VAGINAL PATHOGENS DNA [id number] 00:00:00 Test Item Value Reference Range Interpretation Comments MARK SPECIES (test code = ) NEGATIVE G. VAGINALIS (test code = ) NEGATIVE T. VAGINALIS (test code = ) NEGATIVE VAGINAL PATHOGENS DNA [id number] 00:00:00 Test Item Value Reference Range Interpretation Comments MARK SPECIES (test code = 92820) NEGATIVE G. VAGINALIS (test code = 99689) NEGATIVE T. VAGINALIS (test code = 49064) NEGATIVE VAGINAL PATHOGENS DNA [id number] 00:00:00 Test Item Value Reference Range Interpretation Comments MARK SPECIES (test code = 47937) NEGATIVE G. VAGINALIS (test code = 84308) NEGATIVE T. VAGINALIS (test code = 61446) NEGATIVE VAGINAL PATHOGENS DNA [id number] 00:00:00 Test Item Value Reference Range Interpretation Comments MARK SPECIES (test code = 15752) NEGATIVE G. VAGINALIS (test code = 36039) NEGATIVE T. VAGINALIS (test code = 65544) NEGATIVE VAGINAL PATHOGENS DNA [id number] 00:00:00 Test Item Value Reference Range Interpretation Comments MARK SPECIES (test code = 99862) NEGATIVE G. VAGINALIS (test code = 65319) NEGATIVE T. VAGINALIS (test code = 12579) NEGATIVE VAGINAL PATHOGENS DNA [id number] 00:00:00 Test Item Value Reference Range Interpretation Comments MARK SPECIES (test code = 20028) NEGATIVE G. VAGINALIS (test code = 07263) NEGATIVE T. VAGINALIS (test code = 19345) NEGATIVE VAGINAL PATHOGENS DNA [id number] 00:00:00 Test Item Value Reference Range Interpretation Comments MARK SPECIES (test code = 98085) NEGATIVE G. VAGINALIS (test code = 58872) NEGATIVE T. VAGINALIS (test code = 37074) NEGATIVE HEMOGLOBIN A1c [ADDED]2018-12-01 00:00:00 Test Item Value Reference Range Interpretation Comments HEMOGLOBIN A1c (test code = 80024) 6.7 % HEMOGLOBIN A1c [ADDED]2018-12-01 00:00:00 Test Item Value Reference Range Interpretation Comments HEMOGLOBIN A1c (test code = 40010) 6.7 % HEMOGLOBIN A1c [ADDED]2018-12-01 00:00:00 Test Item Value Reference Range Interpretation Comments HEMOGLOBIN A1c (test code = 18554) 6.7 % COMPREHENSIVE METABOLIC PANEL [ADDED]2018-12-01 00:00:00 Test Item Value Reference Range Interpretation Comments GLUCOSE (test code = 2217) 136 MG/DL BUN (test code = 2208) 15 MG/DL CREATININE (test code = 2214) 0.64 MG/DL eGFR AMER. (test code 115 ML/MIN/1.73 = 79133) eGFR NON- AMER. (test 99 ML/MIN/1.73 code = 58657) CALC BUN/CREAT (test code = 23 RATIO [...] eGFR AMER. (test code 115 ML/MIN/1.73 = 93013) eGFR NON- AMER. (test 99 ML/MIN/1.73 code = 88278) CALC BUN/CREAT (test code = 23 RATIO [...] Interpretation Comments HEMOGLOBIN A1c (test code = 41900) 6.7 % HEMOGLOBIN A1c [ADDED]2018-12-01 00:00:00 Test Item Value Reference Range Interpretation Comments HEMOGLOBIN A1c (test code = 80761) 6.7 % HEMOGLOBIN A1c [ADDED]2018-12-01 00:00:00 Test Item Value Reference Range Interpretation Comments HEMOGLOBIN A1c (test code = 63563) 6.7 % COMPREHENSIVE METABOLIC PANEL [ADDED]2018-12-01 00:00:00 Test Item Value Reference Range Interpretation Comments GLUCOSE (test code = 2217) 136 MG/DL BUN (test code = 2208) 15 MG/DL CREATININE (test code = 2214) 0.64 MG/DL eGFR AMER. (test code 115 ML/MIN/1.73 = 94032) eGFR NON- AMER. (test 99 ML/MIN/1.73 code = 16765) CALC BUN/CREAT (test code = 23 RATIO [...] eGFR AMER. (test code 115 ML/MIN/1.73 = 80832) eGFR NON- AMER. (test 99 ML/MIN/1.73 code = 31129) CALC BUN/CREAT (test code = 23 RATIO [...] Interpretation Comments HEMOGLOBIN A1c (test code = 68473) 6.7 % HEMOGLOBIN A1c [ADDED]2018-12-01 00:00:00 Test Item Value Reference Range Interpretation Comments HEMOGLOBIN A1c (test code = 13113) 6.7 % COMPREHENSIVE METABOLIC PANEL [ADDED]2018-12-01 00:00:00 Test Item Value Reference Range Interpretation Comments GLUCOSE (test code = 2217) 136 MG/DL BUN (test code = 2208) 15 MG/DL CREATININE (test code = 2214) 0.64 MG/DL eGFR AMER. (test code 115 ML/MIN/1.73 = 17224) eGFR NON- AMER. (test 99 ML/MIN/1.73 code = 34921) CALC BUN/CREAT (test code = 23 RATIO [...] Interpretation Comments HEMOGLOBIN A1c (test code = 74744) 6.7 % HEMOGLOBIN A1c [ADDED]2018-12-01 00:00:00 Test Item Value Reference Range Interpretation Comments HEMOGLOBIN A1c (test code = 92707) 6.7 % HEMOGLOBIN A1c [ADDED]2018-12-01 00:00:00 Test Item Value Reference Range Interpretation Comments HEMOGLOBIN A1c (test code = 42641) 6.7 % COMPREHENSIVE METABOLIC PANEL [ADDED]2018-12-01 00:00:00 Test Item Value Reference Range Interpretation Comments GLUCOSE (test code = 2217) 136 MG/DL BUN (test code = 2208) 15 MG/DL CREATININE (test code = 2214) 0.64 MG/DL eGFR AMER. (test code 115 ML/MIN/1.73 = 47998) eGFR NON- AMER. (test 99 ML/MIN/1.73 code = 24890) CALC BUN/CREAT (test code = 23 RATIO [...] eGFR AMER. (test code 115 ML/MIN/1.73 = 06162) eGFR NON- AMER. (test 99 ML/MIN/1.73 code = 68796) CALC BUN/CREAT (test code = 23 RATIO [...] code 1.280 UIU/ML = 2821) CBC W/AUTO [id number] 00:00:00 Test Item Value Reference Range Interpretation [...] code = 1015) 346 K/UL CBC W/AUTO [id number] 00:00:00 Test Item Value Reference Range Interpretation [...] code = 1015) 346 K/UL CBC W/AUTO [id number] 00:00:00 Test Item Value Reference Range Interpretation [...] (test code = 1015) 346 K/UL HEMOGLOBIN [id number] 00:00:00 Test Item Value Reference Range Interpretation Comments HEMOGLOBIN A1c (test code = 44764) 5.9 % HEMOGLOBIN [id number] 00:00:00 Test Item Value Reference Range Interpretation Comments HEMOGLOBIN A1c (test code = 40742) 5.9 % HEMOGLOBIN [id number] 00:00:00 Test Item Value Reference Range Interpretation Comments HEMOGLOBIN A1c (test code = 34810) 5.9 % LIPID [id number] 00:00:00 Test Item Value Reference Range Interpretation Comments CHOLESTEROL (test code = 2210) 318 MG/DL TRIGLYCERIDES (test code = 2232) 263 MG/DL HDL CHOLESTEROL (test code = 2220) 51 MG/DL CALC LDL CHOL (test code = 2237) 214 MG/DL RISK RATIO LDL/HDL (test code = 4.20 RATIO 2238) LIPID [id number] 00:00:00 Test Item Value Reference Range Interpretation Comments CHOLESTEROL (test code = 2210) 318 MG/DL TRIGLYCERIDES (test code = 2232) 263 MG/DL HDL CHOLESTEROL (test code = 2220) 51 MG/DL CALC LDL CHOL (test code = 2237) 214 MG/DL RISK RATIO LDL/HDL (test code = 4.20 RATIO 2238) COMPREHENSIVE METABOLIC [id number] 00:00:00 Test Item Value Reference Range Interpretation Comments GLUCOSE (test code = 2217) 113 MG/DL BUN (test code = 2208) 18 MG/DL CREATININE (test code = 2214) 0.70 MG/DL eGFR AMER. (test code 111 ML/MIN/1.73 = 46098) eGFR NON- AMER. (test 96 ML/MIN/1.73 code = 07402) CALC BUN/CREAT (test code = 26 RATIO [...] code = 2219) 31 U/L COMPREHENSIVE METABOLIC [id number] 00:00:00 Test Item Value Reference Range Interpretation Comments GLUCOSE (test code = 2217) 113 MG/DL BUN (test code = 2208) 18 MG/DL CREATININE (test code = 2214) 0.70 MG/DL eGFR AMER. (test code 111 ML/MIN/1.73 = 23664) eGFR NON- AMER. (test 96 ML/MIN/1.73 code = 09817) CALC BUN/CREAT (test code = 26 RATIO [...] ALT (test code = 2219) 31 U/L [id number] 00:00:00 Test Item Value Reference Range Interpretation Comments TSH, THIRD GENERATION (test code 2.520 UIU/ML = 2821) [id number] 00:00:00 Test Item Value Reference Range Interpretation Comments TSH, THIRD GENERATION (test code 2.520 UIU/ML = 2821) [id number] 00:00:00 Test Item Value Reference Range Interpretation Comments TSH, THIRD GENERATION (test code 2.520 UIU/ML = 2821) CBC W/AUTO [id number] 00:00:00 Test Item Value Reference Range Interpretation [...] code = 1015) 346 K/UL CBC W/AUTO [id number] 00:00:00 Test Item Value Reference Range Interpretation [...] code = 1015) 346 K/UL CBC W/AUTO [id number] 00:00:00 Test Item Value Reference Range Interpretation [...] (test code = 1015) 346 K/UL HEMOGLOBIN [id number] 00:00:00 Test Item Value Reference Range Interpretation Comments HEMOGLOBIN A1c (test code = 82052) 5.9 % HEMOGLOBIN [id number] 00:00:00 Test Item Value Reference Range Interpretation Comments HEMOGLOBIN A1c (test code = 62213) 5.9 % HEMOGLOBIN [id number] 00:00:00 Test Item Value Reference Range Interpretation Comments HEMOGLOBIN A1c (test code = 45187) 5.9 % LIPID [id number] 00:00:00 Test Item Value Reference Range Interpretation Comments CHOLESTEROL (test code = 2210) 318 MG/DL TRIGLYCERIDES (test code = 2232) 263 MG/DL HDL CHOLESTEROL (test code = 2220) 51 MG/DL CALC LDL CHOL (test code = 2237) 214 MG/DL RISK RATIO LDL/HDL (test code = 4.20 RATIO 2238) LIPID [id number] 00:00:00 Test Item Value Reference Range Interpretation Comments CHOLESTEROL (test code = 2210) 318 MG/DL TRIGLYCERIDES (test code = 2232) 263 MG/DL HDL CHOLESTEROL (test code = 2220) 51 MG/DL CALC LDL CHOL (test code = 2237) 214 MG/DL RISK RATIO LDL/HDL (test code = 4.20 RATIO 2238) COMPREHENSIVE METABOLIC [id number] 00:00:00 Test Item Value Reference Range Interpretation Comments GLUCOSE (test code = 2217) 113 MG/DL BUN (test code = 2208) 18 MG/DL CREATININE (test code = 2214) 0.70 MG/DL eGFR AMER. (test code 111 ML/MIN/1.73 = 43601) eGFR NON- AMER. (test 96 ML/MIN/1.73 code = 09255) CALC BUN/CREAT (test code = 26 RATIO [...] code = 2219) 31 U/L COMPREHENSIVE METABOLIC [id number] 00:00:00 Test Item Value Reference Range Interpretation Comments GLUCOSE (test code = 2217) 113 MG/DL BUN (test code = 2208) 18 MG/DL CREATININE (test code = 2214) 0.70 MG/DL eGFR AMER. (test code 111 ML/MIN/1.73 = 16725) eGFR NON- AMER. (test 96 ML/MIN/1.73 code = 16993) CALC BUN/CREAT (test code = 26 RATIO [...] ALT (test code = 2219) 31 U/L [id number] 00:00:00 Test Item Value Reference Range Interpretation Comments TSH, THIRD GENERATION (test code 2.520 UIU/ML = 2821) [id number] 00:00:00 Test Item Value Reference Range Interpretation Comments TSH, THIRD GENERATION (test code 2.520 UIU/ML = 2821) [id number] 00:00:00 Test Item Value Reference Range Interpretation Comments TSH, THIRD GENERATION (test code 2.520 UIU/ML = 2821) CBC W/AUTO [id number] 00:00:00 Test Item Value Reference Range Interpretation [...] code = 1015) 346 K/UL CBC W/AUTO [id number] 00:00:00 Test Item Value Reference Range Interpretation [...] (test code = 1015) 346 K/UL HEMOGLOBIN [id number] 00:00:00 Test Item Value Reference Range Interpretation Comments HEMOGLOBIN A1c (test code = 27589) 5.9 % HEMOGLOBIN [id number] 00:00:00 Test Item Value Reference Range Interpretation Comments HEMOGLOBIN A1c (test code = 63971) 5.9 % LIPID [id number] 00:00:00 Test Item Value Reference Range Interpretation Comments CHOLESTEROL (test code = 2210) 318 MG/DL TRIGLYCERIDES (test code = 2232) 263 MG/DL HDL CHOLESTEROL (test code = 2220) 51 MG/DL CALC LDL CHOL (test code = 2237) 214 MG/DL RISK RATIO LDL/HDL (test code = 4.20 RATIO 2238) COMPREHENSIVE METABOLIC [id number] 00:00:00 Test Item Value Reference Range Interpretation Comments GLUCOSE (test code = 2217) 113 MG/DL BUN (test code = 2208) 18 MG/DL CREATININE (test code = 2214) 0.70 MG/DL eGFR AMER. (test code 111 ML/MIN/1.73 = 14181) eGFR NON- AMER. (test 96 ML/MIN/1.73 code = 27562) CALC BUN/CREAT (test code = 26 RATIO [...] ALT (test code = 2219) 31 U/L [id number] 00:00:00 Test Item Value Reference Range Interpretation Comments TSH, THIRD GENERATION (test code 2.520 UIU/ML = 2821) [id number] 00:00:00 Test Item Value Reference Range Interpretation Comments TSH, THIRD GENERATION (test code 2.520 UIU/ML = 2821) CBC W/AUTO [id number] 00:00:00 Test Item Value Reference Range Interpretation [...] code = 1015) 346 K/UL CBC W/AUTO [id number] 00:00:00 Test Item Value Reference Range Interpretation [...] code = 1015) 346 K/UL CBC W/AUTO [id number] 00:00:00 Test Item Value Reference Range Interpretation [...] (test code = 1015) 346 K/UL HEMOGLOBIN [id number] 00:00:00 Test Item Value Reference Range Interpretation Comments HEMOGLOBIN A1c (test code = 29776) 5.9 % HEMOGLOBIN [id number] 00:00:00 Test Item Value Reference Range Interpretation Comments HEMOGLOBIN A1c (test code = 35570) 5.9 % HEMOGLOBIN [id number] 00:00:00 Test Item Value Reference Range Interpretation Comments HEMOGLOBIN A1c (test code = 80075) 5.9 % LIPID [id number] 00:00:00 Test Item Value Reference Range Interpretation Comments CHOLESTEROL (test code = 2210) 318 MG/DL TRIGLYCERIDES (test code = 2232) 263 MG/DL HDL CHOLESTEROL (test code = 2220) 51 MG/DL CALC LDL CHOL (test code = 2237) 214 MG/DL RISK RATIO LDL/HDL (test code = 4.20 RATIO 2238) LIPID [id number] 00:00:00 Test Item Value Reference Range Interpretation Comments CHOLESTEROL (test code = 2210) 318 MG/DL TRIGLYCERIDES (test code = 2232) 263 MG/DL HDL CHOLESTEROL (test code = 2220) 51 MG/DL CALC LDL CHOL (test code = 2237) 214 MG/DL RISK RATIO LDL/HDL (test code = 4.20 RATIO 2238) COMPREHENSIVE METABOLIC [id number] 00:00:00 Test Item Value Reference Range Interpretation Comments GLUCOSE (test code = 2217) 113 MG/DL BUN (test code = 2208) 18 MG/DL CREATININE (test code = 2214) 0.70 MG/DL eGFR AMER. (test code 111 ML/MIN/1.73 = 69682) eGFR NON- AMER. (test 96 ML/MIN/1.73 code = 42837) CALC BUN/CREAT (test code = 26 RATIO [...] code = 2219) 31 U/L COMPREHENSIVE METABOLIC [id number] 00:00:00 Test Item Value Reference Range Interpretation Comments GLUCOSE (test code = 2217) 113 MG/DL BUN (test code = 2208) 18 MG/DL CREATININE (test code = 2214) 0.70 MG/DL eGFR AMER. (test code 111 ML/MIN/1.73 = 25927) eGFR NON- AMER. (test 96 ML/MIN/1.73 code = 65192) CALC BUN/CREAT (test code = 26 RATIO [...] ALT (test code = 2219) 31 U/L [id number] 00:00:00 Test Item Value Reference Range Interpretation Comments TSH, THIRD GENERATION (test code 2.520 UIU/ML = 2821) [id number] 00:00:00 Test Item Value Reference Range Interpretation Comments TSH, THIRD GENERATION (test code 2.520 UIU/ML = 2821) [id number] 00:00:00 Test Item Value Reference Range Interpretation Comments TSH, THIRD GENERATION (test code 2.520 UIU/ML = 2821) CULTURE, [id number] 00:00:00 Test Item Value Reference Range Interpretation Comments CULTURE, URINE (test SPECIMEN NUMBER: code = 39188) [id number] CULTURE, [id number] 00:00:00 Test Item Value Reference Range Interpretation Comments CULTURE, URINE (test SPECIMEN NUMBER: code = 03965) [id number] CULTURE, [id number] 00:00:00 Test Item Value Reference Range Interpretation Comments CULTURE, URINE (test SPECIMEN NUMBER: code = 71783) [id number] CULTURE, [id number] 00:00:00 Test Item Value Reference Range Interpretation Comments CULTURE, URINE (test SPECIMEN NUMBER: code = 64614) [id number] CULTURE, [id number] 00:00:00 Test Item Value Reference Range Interpretation Comments CULTURE, URINE (test SPECIMEN NUMBER: code = 57792) [id number] CULTURE, [id number] 00:00:00 Test Item Value Reference Range Interpretation Comments CULTURE, URINE (test SPECIMEN NUMBER: code = 18615) [id number] CULTURE, [id number] 00:00:00 Test Item Value Reference Range Interpretation Comments CULTURE, URINE (test SPECIMEN NUMBER: code = 82718) [id number] CULTURE, [id number] 00:00:00 Test Item Value Reference Range Interpretation Comments CULTURE, URINE (test SPECIMEN NUMBER: code = 58565) [id number] CULTURE, [id number] 00:00:00 Test Item Value Reference Range Interpretation Comments CULTURE, URINE (test SPECIMEN NUMBER: code = 94783) [id number] CULTURE, [id number] 00:00:00 Test Item Value Reference Range Interpretation Comments CULTURE, URINE (test SPECIMEN NUMBER: code = 68031) [id number] CULTURE, [id number] 00:00:00 Test Item Value Reference Range Interpretation Comments CULTURE, URINE (test SPECIMEN NUMBER: code = 95940) [id number] CULTURE, [id number] 00:00:00 Test Item Value Reference Range Interpretation Comments CULTURE, URINE (test SPECIMEN NUMBER: code = 25924) [id number] CULTURE, [id number] 00:00:00 Test Item Value Reference Range Interpretation Comments CULTURE, URINE (test SPECIMEN NUMBER: code = 39533) [id number] CULTURE, [id number] 00:00:00 Test Item Value Reference Range Interpretation Comments CULTURE, URINE (test SPECIMEN NUMBER: code = 03348) [id number] BASIC METABOLIC [id number] 00:00:00 Test Item Value Reference Range Interpretation Comments GLUCOSE (test code = 2217) 135 MG/DL BUN (test code = 2208) 25 MG/DL CREATININE (test code = 2214) 0.76 MG/DL eGFR AMER. (test code 101 ML/MIN/1.73 = 32686) eGFR NON- AMER. (test 87 ML/MIN/1.73 code = 03915) SODIUM (test code = 2231) 139 MEQ/L POTASSIUM (test code = 2228) 4.7 MEQ/L CHLORIDE (test code = 2215) 99 MEQ/L CARBON DIOXIDE (test code = 26 MEQ/L 2206) CALCIUM (test code = 2209) 9.4 MG/DL BASIC METABOLIC [id number] 00:00:00 Test Item Value Reference Range Interpretation Comments GLUCOSE (test code = 2217) 135 MG/DL BUN (test code = 2208) 25 MG/DL CREATININE (test code = 2214) 0.76 MG/DL eGFR AMER. (test code 101 ML/MIN/1.73 = 53693) eGFR NON- AMER. (test 87 ML/MIN/1.73 code = 21171) SODIUM (test code = 2231) 139 MEQ/L POTASSIUM (test code = 2228) 4.7 MEQ/L CHLORIDE (test code = 2215) 99 MEQ/L CARBON DIOXIDE (test code = 26 MEQ/L 2206) CALCIUM (test code = 2209) 9.4 MG/DL LIPID [id number] 00:00:00 Test Item Value Reference Range Interpretation Comments CHOLESTEROL (test code = 2210) 262 MG/DL TRIGLYCERIDES (test code = 2232) 300 MG/DL HDL CHOLESTEROL (test code = 2220) 36 MG/DL CALC LDL CHOL (test code = 2237) 166 MG/DL RISK RATIO LDL/HDL (test code = 4.61 RATIO 2238) LIPID [id number] 00:00:00 Test Item Value Reference Range Interpretation Comments CHOLESTEROL (test code = 2210) 262 MG/DL TRIGLYCERIDES (test code = 2232) 300 MG/DL HDL CHOLESTEROL (test code = 2220) 36 MG/DL CALC LDL CHOL (test code = 2237) 166 MG/DL RISK RATIO LDL/HDL (test code = 4.61 RATIO 2238) HEMOGLOBIN [id number] 00:00:00 Test Item Value Reference Range Interpretation Comments HEMOGLOBIN A1c (test code = 59954) 6.2 % HEMOGLOBIN [id number] 00:00:00 Test Item Value Reference Range Interpretation Comments HEMOGLOBIN A1c (test code = 08224) 6.2 % HEMOGLOBIN [id number] 00:00:00 Test Item Value Reference Range Interpretation Comments HEMOGLOBIN A1c (test code = 14725) 6.2 % [id number] 00:00:00 Test Item Value Reference Range Interpretation Comments TSH, THIRD GENERATION (test code 0.988 UIU/ML = 2821) [id number] 00:00:00 Test Item Value Reference Range Interpretation Comments TSH, THIRD GENERATION (test code 0.988 UIU/ML = 2821) [id number] 00:00:00 Test Item Value Reference Range Interpretation Comments TSH, THIRD GENERATION (test code 0.988 UIU/ML = 2821) BASIC METABOLIC [id number] 00:00:00 Test Item Value Reference Range Interpretation Comments GLUCOSE (test code = 2217) 135 MG/DL BUN (test code = 2208) 25 MG/DL CREATININE (test code = 2214) 0.76 MG/DL eGFR AMER. (test code 101 ML/MIN/1.73 = 11355) eGFR NON- AMER. (test 87 ML/MIN/1.73 code = 92669) SODIUM (test code = 2231) 139 MEQ/L POTASSIUM (test code = 2228) 4.7 MEQ/L CHLORIDE (test code = 2215) 99 MEQ/L CARBON DIOXIDE (test code = 26 MEQ/L 2206) CALCIUM (test code = 2209) 9.4 MG/DL BASIC METABOLIC [id number] 00:00:00 Test Item Value Reference Range Interpretation Comments GLUCOSE (test code = 2217) 135 MG/DL BUN (test code = 2208) 25 MG/DL CREATININE (test code = 2214) 0.76 MG/DL eGFR AMER. (test code 101 ML/MIN/1.73 = 77635) eGFR NON- AMER. (test 87 ML/MIN/1.73 code = 75000) SODIUM (test code = 2231) 139 MEQ/L POTASSIUM (test code = 2228) 4.7 MEQ/L CHLORIDE (test code = 2215) 99 MEQ/L CARBON DIOXIDE (test code = 26 MEQ/L 2206) CALCIUM (test code = 2209) 9.4 MG/DL LIPID [id number] 00:00:00 Test Item Value Reference Range Interpretation Comments CHOLESTEROL (test code = 2210) 262 MG/DL TRIGLYCERIDES (test code = 2232) 300 MG/DL HDL CHOLESTEROL (test code = 2220) 36 MG/DL CALC LDL CHOL (test code = 2237) 166 MG/DL RISK RATIO LDL/HDL (test code = 4.61 RATIO 2238) LIPID [id number] 00:00:00 Test Item Value Reference Range Interpretation Comments CHOLESTEROL (test code = 2210) 262 MG/DL TRIGLYCERIDES (test code = 2232) 300 MG/DL HDL CHOLESTEROL (test code = 2220) 36 MG/DL CALC LDL CHOL (test code = 2237) 166 MG/DL RISK RATIO LDL/HDL (test code = 4.61 RATIO 2238) HEMOGLOBIN [id number] 00:00:00 Test Item Value Reference Range Interpretation Comments HEMOGLOBIN A1c (test code = 85609) 6.2 % HEMOGLOBIN [id number] 00:00:00 Test Item Value Reference Range Interpretation Comments HEMOGLOBIN A1c (test code = 39511) 6.2 % HEMOGLOBIN [id number] 00:00:00 Test Item Value Reference Range Interpretation Comments HEMOGLOBIN A1c (test code = 94835) 6.2 % [id number] 00:00:00 Test Item Value Reference Range Interpretation Comments TSH, THIRD GENERATION (test code 0.988 UIU/ML = 2821) [id number] 00:00:00 Test Item Value Reference Range Interpretation Comments TSH, THIRD GENERATION (test code 0.988 UIU/ML = 2821) [id number] 00:00:00 Test Item Value Reference Range Interpretation Comments TSH, THIRD GENERATION (test code 0.988 UIU/ML = 2821) BASIC METABOLIC [id number] 00:00:00 Test Item Value Reference Range Interpretation Comments GLUCOSE (test code = 2217) 135 MG/DL BUN (test code = 2208) 25 MG/DL CREATININE (test code = 2214) 0.76 MG/DL eGFR AMER. (test code 101 ML/MIN/1.73 = 23721) eGFR NON- AMER. (test 87 ML/MIN/1.73 code = 65467) SODIUM (test code = 2231) 139 MEQ/L POTASSIUM (test code = 2228) 4.7 MEQ/L CHLORIDE (test code = 2215) 99 MEQ/L CARBON DIOXIDE (test code = 26 MEQ/L 2206) CALCIUM (test code = 2209) 9.4 MG/DL LIPID [id number] 00:00:00 Test Item Value Reference Range Interpretation Comments CHOLESTEROL (test code = 2210) 262 MG/DL TRIGLYCERIDES (test code = 2232) 300 MG/DL HDL CHOLESTEROL (test code = 2220) 36 MG/DL CALC LDL CHOL (test code = 2237) 166 MG/DL RISK RATIO LDL/HDL (test code = 4.61 RATIO 2238) HEMOGLOBIN [id number] 00:00:00 Test Item Value Reference Range Interpretation Comments HEMOGLOBIN A1c (test code = 95931) 6.2 % HEMOGLOBIN [id number] 00:00:00 Test Item Value Reference Range Interpretation Comments HEMOGLOBIN A1c (test code = 54216) 6.2 % [id number] 00:00:00 Test Item Value Reference Range Interpretation Comments TSH, THIRD GENERATION (test code 0.988 UIU/ML = 2821) [id number] 00:00:00 Test Item Value Reference Range Interpretation Comments TSH, THIRD GENERATION (test code 0.988 UIU/ML = 2821) BASIC METABOLIC [id number] 00:00:00 Test Item Value Reference Range Interpretation Comments GLUCOSE (test code = 2217) 135 MG/DL BUN (test code = 2208) 25 MG/DL CREATININE (test code = 2214) 0.76 MG/DL eGFR AMER. (test code 101 ML/MIN/1.73 = 67264) eGFR NON- AMER. (test 87 ML/MIN/1.73 code = 24470) SODIUM (test code = 2231) 139 MEQ/L POTASSIUM (test code = 2228) 4.7 MEQ/L CHLORIDE (test code = 2215) 99 MEQ/L CARBON DIOXIDE (test code = 26 MEQ/L 2206) CALCIUM (test code = 2209) 9.4 MG/DL BASIC METABOLIC [id number] 00:00:00 Test Item Value Reference Range Interpretation Comments GLUCOSE (test code = 2217) 135 MG/DL BUN (test code = 2208) 25 MG/DL CREATININE (test code = 2214) 0.76 MG/DL eGFR AMER. (test code 101 ML/MIN/1.73 = 34975) eGFR NON- AMER. (test 87 ML/MIN/1.73 code = 45183) SODIUM (test code = 2231) 139 MEQ/L POTASSIUM (test code = 2228) 4.7 MEQ/L CHLORIDE (test code = 2215) 99 MEQ/L CARBON DIOXIDE (test code = 26 MEQ/L 2206) CALCIUM (test code = 2209) 9.4 MG/DL LIPID [id number] 00:00:00 Test Item Value Reference Range Interpretation Comments CHOLESTEROL (test code = 2210) 262 MG/DL TRIGLYCERIDES (test code = 2232) 300 MG/DL HDL CHOLESTEROL (test code = 2220) 36 MG/DL CALC LDL CHOL (test code = 2237) 166 MG/DL RISK RATIO LDL/HDL (test code = 4.61 RATIO 2238) LIPID [id number] 00:00:00 Test Item Value Reference Range Interpretation Comments CHOLESTEROL (test code = 2210) 262 MG/DL TRIGLYCERIDES (test code = 2232) 300 MG/DL HDL CHOLESTEROL (test code = 2220) 36 MG/DL CALC LDL CHOL (test code = 2237) 166 MG/DL RISK RATIO LDL/HDL (test code = 4.61 RATIO 2238) HEMOGLOBIN [id number] 00:00:00 Test Item Value Reference Range Interpretation Comments HEMOGLOBIN A1c (test code = 42190) 6.2 % HEMOGLOBIN [id number] 00:00:00 Test Item Value Reference Range Interpretation Comments HEMOGLOBIN A1c (test code = 65780) 6.2 % HEMOGLOBIN [id number] 00:00:00 Test Item Value Reference Range Interpretation Comments HEMOGLOBIN A1c (test code = 80983) 6.2 % [id number] 00:00:00 Test Item Value Reference Range Interpretation Comments TSH, THIRD GENERATION (test code 0.988 UIU/ML = 2821) [id number] 00:00:00 Test Item Value Reference Range Interpretation Comments TSH, THIRD GENERATION (test code 0.988 UIU/ML = 2821) [id number] 00:00:00 Test Item Value Reference Range Interpretation Comments TSH, THIRD GENERATION (test code 0.988 UIU/ML = 2821) COMPREHENSIVE METABOLIC [id number] 00:00:00 Test Item Value Reference Range Interpretation Comments GLUCOSE (test code = 2217) 109 MG/DL BUN (test code = 2208) 25 MG/DL CREATININE (test code = 2214) 0.78 MG/DL eGFR AMER. (test code 98 ML/MIN/1.73 = 58460) eGFR NON- AMER. (test 84 ML/MIN/1.73 code = 82088) CALC BUN/CREAT (test code = 32 RATIO [...] code = 2219) 25 U/L COMPREHENSIVE METABOLIC [id number] 00:00:00 Test Item Value Reference Range Interpretation Comments GLUCOSE (test code = 2217) 109 MG/DL BUN (test code = 2208) 25 MG/DL CREATININE (test code = 2214) 0.78 MG/DL eGFR AMER. (test code 98 ML/MIN/1.73 = 45582) eGFR NON- AMER. (test 84 ML/MIN/1.73 code = 06149) CALC BUN/CREAT (test code = 32 RATIO [...] (test code = 2219) 25 U/L LIPID [id number] 00:00:00 Test Item Value Reference Range Interpretation Comments CHOLESTEROL (test code = 2210) 295 MG/DL TRIGLYCERIDES (test code = 2232) 218 MG/DL HDL CHOLESTEROL (test code = 2220) 46 MG/DL CALC LDL CHOL (test code = 2237) 205 MG/DL RISK RATIO LDL/HDL (test code = 4.47 RATIO 2238) LIPID [id number] 00:00:00 Test Item Value Reference Range Interpretation Comments CHOLESTEROL (test code = 2210) 295 MG/DL TRIGLYCERIDES (test code = 2232) 218 MG/DL HDL CHOLESTEROL (test code = 2220) 46 MG/DL CALC LDL CHOL (test code = 2237) 205 MG/DL RISK RATIO LDL/HDL (test code = 4.47 RATIO 2238) HEMOGLOBIN [id number] 00:00:00 Test Item Value Reference Range Interpretation Comments HEMOGLOBIN A1c (test code = 23115) 7.0 % HEMOGLOBIN [id number] 00:00:00 Test Item Value Reference Range Interpretation Comments HEMOGLOBIN A1c (test code = 08387) 7.0 % HEMOGLOBIN [id number] 00:00:00 Test Item Value Reference Range Interpretation Comments HEMOGLOBIN A1c (test code = 48504) 7.0 % [id number] 00:00:00 Test Item Value Reference Range Interpretation Comments TSH, THIRD GENERATION (test code 0.565 UIU/ML = 2821) [id number] 00:00:00 Test Item Value Reference Range Interpretation Comments TSH, THIRD GENERATION (test code 0.565 UIU/ML = 2821) [id number] 00:00:00 Test Item Value Reference Range Interpretation Comments TSH, THIRD GENERATION (test code 0.565 UIU/ML = 2821) COMPREHENSIVE METABOLIC [id number] 00:00:00 Test Item Value Reference Range Interpretation Comments GLUCOSE (test code = 2217) 109 MG/DL BUN (test code = 2208) 25 MG/DL CREATININE (test code = 2214) 0.78 MG/DL eGFR AMER. (test code 98 ML/MIN/1.73 = 00582) eGFR NON- AMER. (test 84 ML/MIN/1.73 code = 30991) CALC BUN/CREAT (test code = 32 RATIO [...] code = 2219) 25 U/L COMPREHENSIVE METABOLIC [id number] 00:00:00 Test Item Value Reference Range Interpretation Comments GLUCOSE (test code = 2217) 109 MG/DL BUN (test code = 2208) 25 MG/DL CREATININE (test code = 2214) 0.78 MG/DL eGFR AMER. (test code 98 ML/MIN/1.73 = 45279) eGFR NON- AMER. (test 84 ML/MIN/1.73 code = 20626) CALC BUN/CREAT (test code = 32 RATIO [...] (test code = 2219) 25 U/L LIPID [id number] 00:00:00 Test Item Value Reference Range Interpretation Comments CHOLESTEROL (test code = 2210) 295 MG/DL TRIGLYCERIDES (test code = 2232) 218 MG/DL HDL CHOLESTEROL (test code = 2220) 46 MG/DL CALC LDL CHOL (test code = 2237) 205 MG/DL RISK RATIO LDL/HDL (test code = 4.47 RATIO 2238) LIPID [id number] 00:00:00 Test Item Value Reference Range Interpretation Comments CHOLESTEROL (test code = 2210) 295 MG/DL TRIGLYCERIDES (test code = 2232) 218 MG/DL HDL CHOLESTEROL (test code = 2220) 46 MG/DL CALC LDL CHOL (test code = 2237) 205 MG/DL RISK RATIO LDL/HDL (test code = 4.47 RATIO 2238) HEMOGLOBIN [id number] 00:00:00 Test Item Value Reference Range Interpretation Comments HEMOGLOBIN A1c (test code = 23174) 7.0 % HEMOGLOBIN [id number] 00:00:00 Test Item Value Reference Range Interpretation Comments HEMOGLOBIN A1c (test code = 40841) 7.0 % HEMOGLOBIN [id number] 00:00:00 Test Item Value Reference Range Interpretation Comments HEMOGLOBIN A1c (test code = 30097) 7.0 % [id number] 00:00:00 Test Item Value Reference Range Interpretation Comments TSH, THIRD GENERATION (test code 0.565 UIU/ML = 2821) [id number] 00:00:00 Test Item Value Reference Range Interpretation Comments TSH, THIRD GENERATION (test code 0.565 UIU/ML = 2821) [id number] 00:00:00 Test Item Value Reference Range Interpretation Comments TSH, THIRD GENERATION (test code 0.565 UIU/ML = 2821) COMPREHENSIVE METABOLIC [id number] 00:00:00 Test Item Value Reference Range Interpretation Comments GLUCOSE (test code = 2217) 109 MG/DL BUN (test code = 2208) 25 MG/DL CREATININE (test code = 2214) 0.78 MG/DL eGFR AMER. (test code 98 ML/MIN/1.73 = 51509) eGFR NON- AMER. (test 84 ML/MIN/1.73 code = 25481) CALC BUN/CREAT (test code = 32 RATIO [...] (test code = 2219) 25 U/L LIPID [id number] 00:00:00 Test Item Value Reference Range Interpretation Comments CHOLESTEROL (test code = 2210) 295 MG/DL TRIGLYCERIDES (test code = 2232) 218 MG/DL HDL CHOLESTEROL (test code = 2220) 46 MG/DL CALC LDL CHOL (test code = 2237) 205 MG/DL RISK RATIO LDL/HDL (test code = 4.47 RATIO 2238) HEMOGLOBIN [id number] 00:00:00 Test Item Value Reference Range Interpretation Comments HEMOGLOBIN A1c (test code = 93291) 7.0 % HEMOGLOBIN [id number] 00:00:00 Test Item Value Reference Range Interpretation Comments HEMOGLOBIN A1c (test code = 76737) 7.0 % [id number] 00:00:00 Test Item Value Reference Range Interpretation Comments TSH, THIRD GENERATION (test code 0.565 UIU/ML = 2821) [id number] 00:00:00 Test Item Value Reference Range Interpretation Comments TSH, THIRD GENERATION (test code 0.565 UIU/ML = 2821) COMPREHENSIVE METABOLIC [id number] 00:00:00 Test Item Value Reference Range Interpretation Comments GLUCOSE (test code = 2217) 109 MG/DL BUN (test code = 2208) 25 MG/DL CREATININE (test code = 2214) 0.78 MG/DL eGFR AMER. (test code 98 ML/MIN/1.73 = 08617) eGFR NON- AMER. (test 84 ML/MIN/1.73 code = 69211) CALC BUN/CREAT (test code = 32 RATIO [...] code = 2219) 25 U/L COMPREHENSIVE METABOLIC [id number] 00:00:00 Test Item Value Reference Range Interpretation Comments GLUCOSE (test code = 2217) 109 MG/DL BUN (test code = 2208) 25 MG/DL CREATININE (test code = 2214) 0.78 MG/DL eGFR AMER. (test code 98 ML/MIN/1.73 = 73594) eGFR NON- AMER. (test 84 ML/MIN/1.73 code = 53453) CALC BUN/CREAT (test code = 32 RATIO [...] (test code = 2219) 25 U/L LIPID [id number] 00:00:00 Test Item Value Reference Range Interpretation Comments CHOLESTEROL (test code = 2210) 295 MG/DL TRIGLYCERIDES (test code = 2232) 218 MG/DL HDL CHOLESTEROL (test code = 2220) 46 MG/DL CALC LDL CHOL (test code = 2237) 205 MG/DL RISK RATIO LDL/HDL (test code = 4.47 RATIO 2238) LIPID [id number] 00:00:00 Test Item Value Reference Range Interpretation Comments CHOLESTEROL (test code = 2210) 295 MG/DL TRIGLYCERIDES (test code = 2232) 218 MG/DL HDL CHOLESTEROL (test code = 2220) 46 MG/DL CALC LDL CHOL (test code = 2237) 205 MG/DL RISK RATIO LDL/HDL (test code = 4.47 RATIO 2238) HEMOGLOBIN [id number] 00:00:00 Test Item Value Reference Range Interpretation Comments HEMOGLOBIN A1c (test code = 61494) 7.0 % HEMOGLOBIN [id number] 00:00:00 Test Item Value Reference Range Interpretation Comments HEMOGLOBIN A1c (test code = 59086) 7.0 % HEMOGLOBIN [id number] 00:00:00 Test Item Value Reference Range Interpretation Comments HEMOGLOBIN A1c (test code = 02747) 7.0 % [id number] 00:00:00 Test Item Value Reference Range Interpretation Comments TSH, THIRD GENERATION (test code 0.565 UIU/ML = 2821) [id number] 00:00:00 Test Item Value Reference Range Interpretation Comments TSH, THIRD GENERATION (test code 0.565 UIU/ML = 2821) [id number] 00:00:00 Test Item Value Reference Range Interpretation Comments TSH, THIRD GENERATION (test code 0.565 UIU/ML = 2821) [id number] 00:00:00 Test Item Value Reference Range Interpretation Comments TSH, THIRD GENERATION (test code 0.379 UIU/ML = 2821) [id number] 00:00:00 Test Item Value Reference Range Interpretation Comments TSH, THIRD GENERATION (test code 0.379 UIU/ML = 2821) [id number] 00:00:00 Test Item Value Reference Range Interpretation Comments TSH, THIRD GENERATION (test code 0.379 UIU/ML = 2821) [id number] 00:00:00 Test Item Value Reference Range Interpretation Comments TSH, THIRD GENERATION (test code 0.379 UIU/ML = 2821) [id number] 00:00:00 Test Item Value Reference Range Interpretation Comments TSH, THIRD GENERATION (test code 0.379 UIU/ML = 2821) [id number] 00:00:00 Test Item Value Reference Range Interpretation Comments TSH, THIRD GENERATION (test code 0.379 UIU/ML = 2821) [id number] 00:00:00 Test Item Value Reference Range Interpretation Comments TSH, THIRD GENERATION (test code 0.379 UIU/ML = 2821) [id number] 00:00:00 Test Item Value Reference Range Interpretation Comments TSH, THIRD GENERATION (test code 0.379 UIU/ML = 2821) [id number] 00:00:00 Test Item Value Reference Range Interpretation Comments TSH, THIRD GENERATION (test code 0.379 UIU/ML = 2821) [id number] 00:00:00 Test Item Value Reference Range Interpretation Comments TSH, THIRD GENERATION (test code 0.379 UIU/ML = 2821) [id number] 00:00:00 Test Item Value Reference Range Interpretation Comments TSH, THIRD GENERATION (test code 0.379 UIU/ML = 2821) CULTURE, [id number] 00:00:00 Test Item Value Reference Range Interpretation Comments CULTURE, URINE (test SPECIMEN NUMBER: code = 73335) [id number] CULTURE, [id number] 00:00:00 Test Item Value Reference Range Interpretation Comments CULTURE, URINE (test SPECIMEN NUMBER: code = 28423) [id number] CULTURE, [id number] 00:00:00 Test Item Value Reference Range Interpretation Comments CULTURE, URINE (test SPECIMEN NUMBER: code = 19672) [id number] CULTURE, [id number] 00:00:00 Test Item Value Reference Range Interpretation Comments CULTURE, URINE (test SPECIMEN NUMBER: code = 43840) [id number] CULTURE, [id number] 00:00:00 Test Item Value Reference Range Interpretation Comments CULTURE, URINE (test SPECIMEN NUMBER: code = 69770) [id number] CULTURE, [id number] 00:00:00 Test Item Value Reference Range Interpretation Comments CULTURE, URINE (test SPECIMEN NUMBER: code = 10747) [id number] CULTURE, [id number] 00:00:00 Test Item Value Reference Range Interpretation Comments CULTURE, URINE (test SPECIMEN NUMBER: code = 77389) [id number] COMPREHENSIVE METABOLIC [id number] 00:00:00 Test Item Value Reference Range Interpretation Comments GLUCOSE (test code = 2217) 128 MG/DL BUN (test code = 2208) 26 MG/DL CREATININE (test code = 2214) 0.92 MG/DL eGFR AMER. (test code 81 ML/MIN/1.73 = 13316) eGFR NON- AMER. (test 70 ML/MIN/1.73 code = 95204) CALC BUN/CREAT (test code = 28 RATIO [...] code = 2219) 29 U/L COMPREHENSIVE METABOLIC [id number] 00:00:00 Test Item Value Reference Range Interpretation Comments GLUCOSE (test code = 2217) 128 MG/DL BUN (test code = 2208) 26 MG/DL CREATININE (test code = 2214) 0.92 MG/DL eGFR AMER. (test code 81 ML/MIN/1.73 = 72117) eGFR NON- AMER. (test 70 ML/MIN/1.73 code = 25786) CALC BUN/CREAT (test code = 28 RATIO [...] code = 2219) 29 U/L ACUTE HEPATITIS [id number] 00:00:00 Test Item Value Reference Range Interpretation Comments HEPATITIS A IgM (test code = NON-REACTIVE 82444) HEPATITIS B CORE IgM (test code NON-REACTIVE = 4644) HEPATITIS B SURF AG (test code = NON-REACTIVE 2739) HEPATITIS C ANTIBODY (test code NON-REACTIVE = 4675) INTERPRETATION HEPATITIS A: (NOTE) (test code = 2552) INTERPRETATION HEPATITIS B: (NOTE) (test code = 66583) INTERPRETATION HEPATITIS C: (NOTE) (test code = 07914) ACUTE HEPATITIS [id number] 00:00:00 Test Item Value Reference Range Interpretation Comments HEPATITIS A IgM (test code = NON-REACTIVE 42272) HEPATITIS B CORE IgM (test code NON-REACTIVE = 4644) HEPATITIS B SURF AG (test code = NON-REACTIVE 2739) HEPATITIS C ANTIBODY (test code NON-REACTIVE = 4675) INTERPRETATION HEPATITIS A: (NOTE) (test code = 2552) INTERPRETATION HEPATITIS B: (NOTE) (test code = 21183) INTERPRETATION HEPATITIS C: (NOTE) (test code = 38220) [id number] 00:00:00 Test Item Value Reference Range Interpretation Comments AMYLASE (test code = 2205) 32 U/L [id number] 00:00:00 Test Item Value Reference Range Interpretation Comments AMYLASE (test code = 2205) 32 U/L [id number] 00:00:00 Test Item Value Reference Range Interpretation Comments LIPASE (test code = 2058) 22 U/L [id number] 00:00:00 Test Item Value Reference Range Interpretation Comments LIPASE (test code = 2058) 22 U/L [id number] 00:00:00 Test Item Value Reference Range Interpretation Comments LIPASE (test code = 205) 22 U/L COMPREHENSIVE METABOLIC [id number] 00:00:00 Test Item Value Reference Range Interpretation Comments GLUCOSE (test code = 2217) 128 MG/DL BUN (test code = 2208) 26 MG/DL CREATININE (test code = 2214) 0.92 MG/DL eGFR AMER. (test code 81 ML/MIN/1.73 = 58013) eGFR NON- AMER. (test 70 ML/MIN/1.73 code = 90923) CALC BUN/CREAT (test code = 28 RATIO [...] code = 2219) 29 U/L COMPREHENSIVE METABOLIC [id number] 00:00:00 Test Item Value Reference Range Interpretation Comments GLUCOSE (test code = 2217) 128 MG/DL BUN (test code = 2208) 26 MG/DL CREATININE (test code = 2214) 0.92 MG/DL eGFR AMER. (test code 81 ML/MIN/1.73 = 32099) eGFR NON- AMER. (test 70 ML/MIN/1.73 code = 07357) CALC BUN/CREAT (test code = 28 RATIO [...] code = 2219) 29 U/L ACUTE HEPATITIS [id number] 00:00:00 Test Item Value Reference Range Interpretation Comments HEPATITIS A IgM (test code = NON-REACTIVE 16799) HEPATITIS B CORE IgM (test code NON-REACTIVE = 4644) HEPATITIS B SURF AG (test code = NON-REACTIVE 2739) HEPATITIS C ANTIBODY (test code NON-REACTIVE = 4675) INTERPRETATION HEPATITIS A: (NOTE) (test code = 2552) INTERPRETATION HEPATITIS B: (NOTE) (test code = 61718) INTERPRETATION HEPATITIS C: (NOTE) (test code = 99763) ACUTE HEPATITIS [id number] 00:00:00 Test Item Value Reference Range Interpretation Comments HEPATITIS A IgM (test code = NON-REACTIVE 45756) HEPATITIS B CORE IgM (test code NON-REACTIVE = 4644) HEPATITIS B SURF AG (test code = NON-REACTIVE 2739) HEPATITIS C ANTIBODY (test code NON-REACTIVE = 4675) INTERPRETATION HEPATITIS A: (NOTE) (test code = 2552) INTERPRETATION HEPATITIS B: (NOTE) (test code = 69702) INTERPRETATION HEPATITIS C: (NOTE) (test code = 25734) [id number] 00:00:00 Test Item Value Reference Range Interpretation Comments AMYLASE (test code = 2205) 32 U/L [id number] 00:00:00 Test Item Value Reference Range Interpretation Comments AMYLASE (test code = 2205) 32 U/L [id number] 00:00:00 Test Item Value Reference Range Interpretation Comments LIPASE (test code = 2057) 22 U/L [id number] 00:00:00 Test Item Value Reference Range Interpretation Comments LIPASE (test code = 2057) 22 U/L [id number] 00:00:00 Test Item Value Reference Range Interpretation Comments LIPASE (test code = 2057) 22 U/L COMPREHENSIVE METABOLIC [id number] 00:00:00 Test Item Value Reference Range Interpretation Comments GLUCOSE (test code = 2217) 128 MG/DL BUN (test code = 2208) 26 MG/DL CREATININE (test code = 2214) 0.92 MG/DL eGFR AMER. (test code 81 ML/MIN/1.73 = 91502) eGFR NON- AMER. (test 70 ML/MIN/1.73 code = 46336) CALC BUN/CREAT (test code = 28 RATIO [...] code = 2219) 29 U/L ACUTE HEPATITIS [id number] 00:00:00 Test Item Value Reference Range Interpretation Comments HEPATITIS A IgM (test code = NON-REACTIVE 88078) HEPATITIS B CORE IgM (test code NON-REACTIVE = 5944) HEPATITIS B SURF AG (test code = NON-REACTIVE 4920) HEPATITIS C ANTIBODY (test code NON-REACTIVE = 1347) INTERPRETATION HEPATITIS A: (NOTE) (test code = 2552) INTERPRETATION HEPATITIS B: (NOTE) (test code = 70790) INTERPRETATION HEPATITIS C: (NOTE) (test code = 16519) [id number] 00:00:00 Test Item Value Reference Range Interpretation Comments AMYLASE (test code = 2205) 32 U/L [id number] 00:00:00 Test Item Value Reference Range Interpretation Comments LIPASE (test code = 205) 22 U/L [id number] 00:00:00 Test Item Value Reference Range Interpretation Comments LIPASE (test code = 205) 22 U/L COMPREHENSIVE METABOLIC [id number] 00:00:00 Test Item Value Reference Range Interpretation Comments GLUCOSE (test code = 2217) 128 MG/DL BUN (test code = 2208) 26 MG/DL CREATININE (test code = 2214) 0.92 MG/DL eGFR AMER. (test code 81 ML/MIN/1.73 = 97424) eGFR NON- AMER. (test 70 ML/MIN/1.73 code = 73841) CALC BUN/CREAT (test code = 28 RATIO [...] code = 2219) 29 U/L COMPREHENSIVE METABOLIC [id number] 00:00:00 Test Item Value Reference Range Interpretation Comments GLUCOSE (test code = 2217) 128 MG/DL BUN (test code = 2208) 26 MG/DL CREATININE (test code = 2214) 0.92 MG/DL eGFR AMER. (test code 81 ML/MIN/1.73 = 80328) eGFR NON- AMER. (test 70 ML/MIN/1.73 code = 91934) CALC BUN/CREAT (test code = 28 RATIO [...] code = 2219) 29 U/L ACUTE HEPATITIS [id number] 00:00:00 Test Item Value Reference Range Interpretation Comments HEPATITIS A IgM (test code = NON-REACTIVE 23192) HEPATITIS B CORE IgM (test code NON-REACTIVE = 4644) HEPATITIS B SURF AG (test code = NON-REACTIVE 2739) HEPATITIS C ANTIBODY (test code NON-REACTIVE = 4675) INTERPRETATION HEPATITIS A: (NOTE) (test code = 2552) INTERPRETATION HEPATITIS B: (NOTE) (test code = 38534) INTERPRETATION HEPATITIS C: (NOTE) (test code = 49500) ACUTE HEPATITIS [id number] 00:00:00 Test Item Value Reference Range Interpretation Comments HEPATITIS A IgM (test code = NON-REACTIVE 72250) HEPATITIS B CORE IgM (test code NON-REACTIVE = 4644) HEPATITIS B SURF AG (test code = NON-REACTIVE 2739) HEPATITIS C ANTIBODY (test code NON-REACTIVE = 4675) INTERPRETATION HEPATITIS A: (NOTE) (test code = 2552) INTERPRETATION HEPATITIS B: (NOTE) (test code = 53106) INTERPRETATION HEPATITIS C: (NOTE) (test code = 79285) [id number] 00:00:00 Test Item Value Reference Range Interpretation Comments AMYLASE (test code = 2205) 32 U/L [id number] 00:00:00 Test Item Value Reference Range Interpretation Comments AMYLASE (test code = 2205) 32 U/L [id number] 00:00:00 Test Item Value Reference Range Interpretation Comments LIPASE (test code = 2057) 22 U/L [id number] 00:00:00 Test Item Value Reference Range Interpretation Comments LIPASE (test code = 2057) 22 U/L [id number] 00:00:00 Test Item Value Reference Range Interpretation Comments LIPASE (test code = 2057) 22 U/L [id number] 00:00:00 Test Item Value Reference Range Interpretation Comments TSH, THIRD GENERATION (test code 4.890 UIU/ML = 2821) [id number] 00:00:00 Test Item Value Reference Range Interpretation Comments TSH, THIRD GENERATION (test code 4.890 UIU/ML = 2821) [id number] 00:00:00 Test Item Value Reference Range Interpretation Comments TSH, THIRD GENERATION (test code 4.890 UIU/ML = 2821) COMPREHENSIVE METABOLIC [id number] 00:00:00 Test Item Value Reference Range Interpretation Comments GLUCOSE (test code = 2217) 121 MG/DL BUN (test code = 2208) 40 MG/DL CREATININE (test code = 2214) 1.48 MG/DL eGFR AMER. (test code 45 ML/MIN/1.73 = 08976) eGFR NON- AMER. (test 39 ML/MIN/1.73 code = 06949) CALC BUN/CREAT (test code = 27 RATIO [...] code = 2219) 20 U/L COMPREHENSIVE METABOLIC [id number] 00:00:00 Test Item Value Reference Range Interpretation Comments GLUCOSE (test code = 2217) 121 MG/DL BUN (test code = 2208) 40 MG/DL CREATININE (test code = 2214) 1.48 MG/DL eGFR AMER. (test code 45 ML/MIN/1.73 = 01246) eGFR NON- AMER. (test 39 ML/MIN/1.73 code = 77502) CALC BUN/CREAT (test code = 27 RATIO [...] ALT (test code = 2219) 20 U/L [id number] 00:00:00 Test Item Value Reference Range Interpretation Comments TSH, THIRD GENERATION (test code 4.890 UIU/ML = 2821) [id number] 00:00:00 Test Item Value Reference Range Interpretation Comments TSH, THIRD GENERATION (test code 4.890 UIU/ML = 2821) [id number] 00:00:00 Test Item Value Reference Range Interpretation Comments TSH, THIRD GENERATION (test code 4.890 UIU/ML = 2821) COMPREHENSIVE METABOLIC [id number] 00:00:00 Test Item Value Reference Range Interpretation Comments GLUCOSE (test code = 2217) 121 MG/DL BUN (test code = 2208) 40 MG/DL CREATININE (test code = 2214) 1.48 MG/DL eGFR AMER. (test code 45 ML/MIN/1.73 = 41496) eGFR NON- AMER. (test 39 ML/MIN/1.73 code = 13887) CALC BUN/CREAT (test code = 27 RATIO [...] code = 2219) 20 U/L COMPREHENSIVE METABOLIC [id number] 00:00:00 Test Item Value Reference Range Interpretation Comments GLUCOSE (test code = 2217) 121 MG/DL BUN (test code = 2208) 40 MG/DL CREATININE (test code = 2214) 1.48 MG/DL eGFR AMER. (test code 45 ML/MIN/1.73 = 09916) eGFR NON- AMER. (test 39 ML/MIN/1.73 code = 74024) CALC BUN/CREAT (test code = 27 RATIO [...] ALT (test code = 2219) 20 U/L [id number] 00:00:00 Test Item Value Reference Range Interpretation Comments TSH, THIRD GENERATION (test code 4.890 UIU/ML = 2821) [id number] 00:00:00 Test Item Value Reference Range Interpretation Comments TSH, THIRD GENERATION (test code 4.890 UIU/ML = 2821) COMPREHENSIVE METABOLIC [id number] 00:00:00 Test Item Value Reference Range Interpretation Comments GLUCOSE (test code = 2217) 121 MG/DL BUN (test code = 2208) 40 MG/DL CREATININE (test code = 2214) 1.48 MG/DL eGFR AMER. (test code 45 ML/MIN/1.73 = 43484) eGFR NON- AMER. (test 39 ML/MIN/1.73 code = 95131) CALC BUN/CREAT (test code = 27 RATIO [...] ALT (test code = 2219) 20 U/L [id number] 00:00:00 Test Item Value Reference Range Interpretation Comments TSH, THIRD GENERATION (test code 4.890 UIU/ML = 2821) [id number] 00:00:00 Test Item Value Reference Range Interpretation Comments TSH, THIRD GENERATION (test code 4.890 UIU/ML = 2821) [id number] 00:00:00 Test Item Value Reference Range Interpretation Comments TSH, THIRD GENERATION (test code 4.890 UIU/ML = 2821) COMPREHENSIVE METABOLIC [id number] 00:00:00 Test Item Value Reference Range Interpretation Comments GLUCOSE (test code = 2217) 121 MG/DL BUN (test code = 2208) 40 MG/DL CREATININE (test code = 2214) 1.48 MG/DL eGFR AMER. (test code 45 ML/MIN/1.73 = 45436) eGFR NON- AMER. (test 39 ML/MIN/1.73 code = 29688) CALC BUN/CREAT (test code = 27 RATIO [...] code = 2219) 20 U/L COMPREHENSIVE METABOLIC [id number] 00:00:00 Test Item Value Reference Range Interpretation Comments GLUCOSE (test code = 2217) 121 MG/DL BUN (test code = 2208) 40 MG/DL CREATININE (test code = 2214) 1.48 MG/DL eGFR AMER. (test code 45 ML/MIN/1.73 = 35552) eGFR NON- AMER. (test 39 ML/MIN/1.73 code = 43048) CALC BUN/CREAT (test code = 27 RATIO [...] (test code = 2219) 20 U/L LIPID [id number] 00:00:00 Test Item Value Reference Range Interpretation Comments CHOLESTEROL (test code = 2210) 261 MG/DL TRIGLYCERIDES (test code = 2232) 165 MG/DL HDL CHOLESTEROL (test code = 2220) 58 MG/DL CALC LDL CHOL (test code = 2237) 170 MG/DL RISK RATIO LDL/HDL (test code = 2.93 RATIO 2238) LIPID [id number] 00:00:00 Test Item Value Reference Range Interpretation Comments CHOLESTEROL (test code = 2210) 261 MG/DL TRIGLYCERIDES (test code = 2232) 165 MG/DL HDL CHOLESTEROL (test code = 2220) 58 MG/DL CALC LDL CHOL (test code = 2237) 170 MG/DL RISK RATIO LDL/HDL (test code = 2.93 RATIO 2238) CBC W/AUTO [id number] 00:00:00 Test Item Value Reference Range Interpretation [...] code = 1015) 378 K/UL CBC W/AUTO [id number] 00:00:00 Test Item Value Reference Range Interpretation [...] code = 1015) 378 K/UL CBC W/AUTO [id number] 00:00:00 Test Item Value Reference Range Interpretation [...] (test code = 1015) 378 K/UL HEMOGLOBIN [id number] 00:00:00 Test Item Value Reference Range Interpretation Comments HEMOGLOBIN A1c (test code = 83872) 6.4 % HEMOGLOBIN [id number] 00:00:00 Test Item Value Reference Range Interpretation Comments HEMOGLOBIN A1c (test code = 24831) 6.4 % HEMOGLOBIN [id number] 00:00:00 Test Item Value Reference Range Interpretation Comments HEMOGLOBIN A1c (test code = 36436) 6.4 % [id number] 00:00:00 Test Item Value Reference Range Interpretation Comments TSH (test code = 2821) 5.290 UIU/ML [id number] 00:00:00 Test Item Value Reference Range Interpretation Comments TSH (test code = 2821) 5.290 UIU/ML [id number] 00:00:00 Test Item Value Reference Range Interpretation Comments TSH (test code = 2821) 5.290 UIU/ML LIPID [id number] 00:00:00 Test Item Value Reference Range Interpretation Comments CHOLESTEROL (test code = 2210) 261 MG/DL TRIGLYCERIDES (test code = 2232) 165 MG/DL HDL CHOLESTEROL (test code = 2220) 58 MG/DL CALC LDL CHOL (test code = 2237) 170 MG/DL RISK RATIO LDL/HDL (test code = 2.93 RATIO 2238) LIPID [id number] 00:00:00 Test Item Value Reference Range Interpretation Comments CHOLESTEROL (test code = 2210) 261 MG/DL TRIGLYCERIDES (test code = 2232) 165 MG/DL HDL CHOLESTEROL (test code = 2220) 58 MG/DL CALC LDL CHOL (test code = 2237) 170 MG/DL RISK RATIO LDL/HDL (test code = 2.93 RATIO 2238) CBC W/AUTO [id number] 00:00:00 Test Item Value Reference Range Interpretation [...] code = 1015) 378 K/UL CBC W/AUTO [id number] 00:00:00 Test Item Value Reference Range Interpretation [...] code = 1015) 378 K/UL CBC W/AUTO [id number] 00:00:00 Test Item Value Reference Range Interpretation [...] (test code = 1015) 378 K/UL HEMOGLOBIN [id number] 00:00:00 Test Item Value Reference Range Interpretation Comments HEMOGLOBIN A1c (test code = 65259) 6.4 % HEMOGLOBIN [id number] 00:00:00 Test Item Value Reference Range Interpretation Comments HEMOGLOBIN A1c (test code = 22682) 6.4 % HEMOGLOBIN [id number] 00:00:00 Test Item Value Reference Range Interpretation Comments HEMOGLOBIN A1c (test code = 24306) 6.4 % [id number] 00:00:00 Test Item Value Reference Range Interpretation Comments TSH (test code = 2821) 5.290 UIU/ML [id number] 00:00:00 Test Item Value Reference Range Interpretation Comments TSH (test code = 2821) 5.290 UIU/ML [id number] 00:00:00 Test Item Value Reference Range Interpretation Comments TSH (test code = 2821) 5.290 UIU/ML LIPID [id number] 00:00:00 Test Item Value Reference Range Interpretation Comments CHOLESTEROL (test code = 2210) 261 MG/DL TRIGLYCERIDES (test code = 2232) 165 MG/DL HDL CHOLESTEROL (test code = 2220) 58 MG/DL CALC LDL CHOL (test code = 2237) 170 MG/DL RISK RATIO LDL/HDL (test code = 2.93 RATIO 2238) CBC W/AUTO [id number] 00:00:00 Test Item Value Reference Range Interpretation [...] code = 1015) 378 K/UL CBC W/AUTO [id number] 00:00:00 Test Item Value Reference Range Interpretation [...] (test code = 1015) 378 K/UL HEMOGLOBIN [id number] 00:00:00 Test Item Value Reference Range Interpretation Comments HEMOGLOBIN A1c (test code = 03963) 6.4 % HEMOGLOBIN [id number] 00:00:00 Test Item Value Reference Range Interpretation Comments HEMOGLOBIN A1c (test code = 47366) 6.4 % [id number] 00:00:00 Test Item Value Reference Range Interpretation Comments TSH (test code = 2821) 5.290 UIU/ML [id number] 00:00:00 Test Item Value Reference Range Interpretation Comments TSH (test code = 2821) 5.290 UIU/ML LIPID [id number] 00:00:00 Test Item Value Reference Range Interpretation Comments CHOLESTEROL (test code = 2210) 261 MG/DL TRIGLYCERIDES (test code = 2232) 165 MG/DL HDL CHOLESTEROL (test code = 2220) 58 MG/DL CALC LDL CHOL (test code = 2237) 170 MG/DL RISK RATIO LDL/HDL (test code = 2.93 RATIO 2238) LIPID [id number] 00:00:00 Test Item Value Reference Range Interpretation Comments CHOLESTEROL (test code = 2210) 261 MG/DL TRIGLYCERIDES (test code = 2232) 165 MG/DL HDL CHOLESTEROL (test code = 2220) 58 MG/DL CALC LDL CHOL (test code = 2237) 170 MG/DL RISK RATIO LDL/HDL (test code = 2.93 RATIO 2238) CBC W/AUTO [id number] 00:00:00 Test Item Value Reference Range Interpretation [...] code = 1015) 378 K/UL CBC W/AUTO [id number] 00:00:00 Test Item Value Reference Range Interpretation [...] code = 1015) 378 K/UL CBC W/AUTO [id number] 00:00:00 Test Item Value Reference Range Interpretation [...] (test code = 1015) 378 K/UL HEMOGLOBIN [id number] 00:00:00 Test Item Value Reference Range Interpretation Comments HEMOGLOBIN A1c (test code = 74985) 6.4 % HEMOGLOBIN [id number] 00:00:00 Test Item Value Reference Range Interpretation Comments HEMOGLOBIN A1c (test code = 60927) 6.4 % HEMOGLOBIN [id number] 00:00:00 Test Item Value Reference Range Interpretation Comments HEMOGLOBIN A1c (test code = 92554) 6.4 % [id number] 00:00:00 Test Item Value Reference Range Interpretation Comments TSH (test code = 2821) 5.290 UIU/ML [id number] 00:00:00 Test Item Value Reference Range Interpretation Comments TSH (test code = 2821) 5.290 UIU/ML [id number] 00:00:00 Test Item Value Reference Range Interpretation [...] code = 2821) 1.030 UIU/ML COMPREHENSIVE METABOLIC [id number] 00:00:00 Test Item Value Reference Range Interpretation Comments GLUCOSE (test code = 2217) 106 MG/DL BUN (test code = 2208) 23 MG/DL CREATININE (test code = 2214) 0.66 MG/DL eGFR AMER. (test code 114 ML/MIN/1.73 = 45272) eGFR NON- AMER. (test 99 ML/MIN/1.73 code = 01852) CALC BUN/CREAT (test code = 35 RATIO [...] code = 2219) 31 U/L COMPREHENSIVE METABOLIC [id number] 00:00:00 Test Item Value Reference Range Interpretation Comments GLUCOSE (test code = 2217) 106 MG/DL BUN (test code = 2208) 23 MG/DL CREATININE (test code = 2214) 0.66 MG/DL eGFR AMER. (test code 114 ML/MIN/1.73 = 93102) eGFR NON- AMER. (test 99 ML/MIN/1.73 code = 36396) CALC BUN/CREAT (test code = 35 RATIO [...] code = 2821) 0.335 UIU/ML COMPREHENSIVE METABOLIC [id number] 00:00:00 Test Item Value Reference Range Interpretation Comments GLUCOSE (test code = 2217) 106 MG/DL BUN (test code = 2208) 23 MG/DL CREATININE (test code = 2214) 0.66 MG/DL eGFR AMER. (test code 114 ML/MIN/1.73 = 78444) eGFR NON- AMER. (test 99 ML/MIN/1.73 code = 37471) CALC BUN/CREAT (test code = 35 RATIO [...] code = 2219) 31 U/L COMPREHENSIVE METABOLIC [id number] 00:00:00 Test Item Value Reference Range Interpretation Comments GLUCOSE (test code = 2217) 106 MG/DL BUN (test code = 2208) 23 MG/DL CREATININE (test code = 2214) 0.66 MG/DL eGFR AMER. (test code 114 ML/MIN/1.73 = 66578) eGFR NON- AMER. (test 99 ML/MIN/1.73 code = 80451) CALC BUN/CREAT (test code = 35 RATIO [...] code = 2821) 0.335 UIU/ML COMPREHENSIVE METABOLIC [id number] 00:00:00 Test Item Value Reference Range Interpretation Comments GLUCOSE (test code = 2217) 106 MG/DL BUN (test code = 2208) 23 MG/DL CREATININE (test code = 2214) 0.66 MG/DL eGFR AMER. (test code 114 ML/MIN/1.73 = 74310) eGFR NON- AMER. (test 99 ML/MIN/1.73 code = 50940) CALC BUN/CREAT (test code = 35 RATIO [...] code = 2821) 0.335 UIU/ML COMPREHENSIVE METABOLIC [id number] 00:00:00 Test Item Value Reference Range Interpretation Comments GLUCOSE (test code = 2217) 106 MG/DL BUN (test code = 2208) 23 MG/DL CREATININE (test code = 2214) 0.66 MG/DL eGFR AMER. (test code 114 ML/MIN/1.73 = 22082) eGFR NON- AMER. (test 99 ML/MIN/1.73 code = 17152) CALC BUN/CREAT (test code = 35 RATIO [...] code = 2219) 31 U/L COMPREHENSIVE METABOLIC [id number] 00:00:00 Test Item Value Reference Range Interpretation Comments GLUCOSE (test code = 2217) 106 MG/DL BUN (test code = 2208) 23 MG/DL CREATININE (test code = 2214) 0.66 MG/DL eGFR AMER. (test code 114 ML/MIN/1.73 = 51572) eGFR NON- AMER. (test 99 ML/MIN/1.73 code = 09145) CALC BUN/CREAT (test code = 35 RATIO [...] code = 2821) 0.335 UIU/ML COMPREHENSIVE METABOLIC [id number] 00:00:00 Test Item Value Reference Range Interpretation Comments GLUCOSE (test code = 2217) 103 MG/DL BUN (test code = 2208) 15 MG/DL CREATININE (test code = 2214) 0.77 MG/DL eGFR AMER. (test code 101 ML/MIN/1.73 = 37727) eGFR NON- AMER. (test 87 ML/MIN/1.73 code = 06489) CALC BUN/CREAT (test code = 19 RATIO [...] code = 2219) 24 U/L COMPREHENSIVE METABOLIC [id number] 00:00:00 Test Item Value Reference Range Interpretation Comments GLUCOSE (test code = 2217) 103 MG/DL BUN (test code = 2208) 15 MG/DL CREATININE (test code = 2214) 0.77 MG/DL eGFR AMER. (test code 101 ML/MIN/1.73 = 64903) eGFR NON- AMER. (test 87 ML/MIN/1.73 code = 88297) CALC BUN/CREAT (test code = 19 RATIO [...] code = 2821) 0.424 UIU/ML COMPREHENSIVE METABOLIC [id number] 00:00:00 Test Item Value Reference Range Interpretation Comments GLUCOSE (test code = 2217) 103 MG/DL BUN (test code = 2208) 15 MG/DL CREATININE (test code = 2214) 0.77 MG/DL eGFR AMER. (test code 101 ML/MIN/1.73 = 58092) eGFR NON- AMER. (test 87 ML/MIN/1.73 code = 48492) CALC BUN/CREAT (test code = 19 RATIO [...] code = 2219) 24 U/L COMPREHENSIVE METABOLIC [id number] 00:00:00 Test Item Value Reference Range Interpretation Comments GLUCOSE (test code = 2217) 103 MG/DL BUN (test code = 2208) 15 MG/DL CREATININE (test code = 2214) 0.77 MG/DL eGFR AMER. (test code 101 ML/MIN/1.73 = 61917) eGFR NON- AMER. (test 87 ML/MIN/1.73 code = 17254) CALC BUN/CREAT (test code = 19 RATIO [...] code = 2821) 0.424 UIU/ML COMPREHENSIVE METABOLIC [id number] 00:00:00 Test Item Value Reference Range Interpretation Comments GLUCOSE (test code = 2217) 103 MG/DL BUN (test code = 2208) 15 MG/DL CREATININE (test code = 2214) 0.77 MG/DL eGFR AMER. (test code 101 ML/MIN/1.73 = 06703) eGFR NON- AMER. (test 87 ML/MIN/1.73 code = 82571) CALC BUN/CREAT (test code = 19 RATIO [...] code = 2821) 0.424 UIU/ML COMPREHENSIVE METABOLIC [id number] 00:00:00 Test Item Value Reference Range Interpretation Comments GLUCOSE (test code = 2217) 103 MG/DL BUN (test code = 2208) 15 MG/DL CREATININE (test code = 2214) 0.77 MG/DL eGFR AMER. (test code 101 ML/MIN/1.73 = 41995) eGFR NON- AMER. (test 87 ML/MIN/1.73 code = 52397) CALC BUN/CREAT (test code = 19 RATIO [...] code = 2219) 24 U/L COMPREHENSIVE METABOLIC [id number] 00:00:00 Test Item Value Reference Range Interpretation Comments GLUCOSE (test code = 2217) 103 MG/DL BUN (test code = 2208) 15 MG/DL CREATININE (test code = 2214) 0.77 MG/DL eGFR AMER. (test code 101 ML/MIN/1.73 = 91348) eGFR NON- AMER. (test 87 ML/MIN/1.73 code = 23589) CALC BUN/CREAT (test code = 19 RATIO [...] (test code = 2821) 0.424 UIU/ML CULTURE, [id number] 00:00:00 Test Item Value Reference Range Interpretation Comments CULTURE, URINE (test SPECIMEN NUMBER: code = 42671) [id number] CULTURE, [id number] 00:00:00 Test Item Value Reference Range Interpretation Comments CULTURE, URINE (test SPECIMEN NUMBER: code = 83332) [id number] CULTURE, [id number] 00:00:00 Test Item Value Reference Range Interpretation Comments CULTURE, URINE (test SPECIMEN NUMBER: code = 93502) [id number] CULTURE, [id number] 00:00:00 Test Item Value Reference Range Interpretation Comments CULTURE, URINE (test SPECIMEN NUMBER: code = 55245) [id number] CULTURE, [id number] 00:00:00 Test Item Value Reference Range Interpretation Comments CULTURE, URINE (test SPECIMEN NUMBER: code = 68443) [id number] CULTURE, [id number] 00:00:00 Test Item Value Reference Range Interpretation Comments CULTURE, URINE (test SPECIMEN NUMBER: code = 66439) [id number] CULTURE, [id number] 00:00:00 Test Item Value Reference Range Interpretation Comments CULTURE, URINE (test SPECIMEN NUMBER: code = 54935) [id number] CULTURE, [id number] 00:00:00 Test Item Value Reference Range Interpretation Comments CULTURE, URINE (test SPECIMEN NUMBER: code = 38002) [id number] CULTURE, [id number] 00:00:00 Test Item Value Reference Range Interpretation Comments CULTURE, URINE (test SPECIMEN NUMBER: code = 66441) [id number] CULTURE, [id number] 00:00:00 Test Item Value Reference Range Interpretation Comments CULTURE, URINE (test SPECIMEN NUMBER: code = 96715) [id number] CULTURE, [id number] 00:00:00 Test Item Value Reference Range Interpretation Comments CULTURE, URINE (test SPECIMEN NUMBER: code = 62685) [id number] CULTURE, [id number] 00:00:00 Test Item Value Reference Range Interpretation Comments CULTURE, URINE (test SPECIMEN NUMBER: code = 74551) [id number] CULTURE, [id number] 00:00:00 Test Item Value Reference Range Interpretation Comments CULTURE, URINE (test SPECIMEN NUMBER: code = 34104) [id number] CULTURE, [id number] 00:00:00 Test Item Value Reference Range Interpretation Comments CULTURE, URINE (test SPECIMEN NUMBER: code = 65329) [id number]
[2022-07-06] MEDS ORDERED: METOCLOPRAMIDE 10 MG/2mL INJ ONE (17:50)
[2022-07-06] MEDS ORDERED: NA CHLORIDE 0.9% 1,000 ML ONE (17:50)
[2022-07-06 18:22] LABS: Absolute Lymphocytes (CBC) 2.4 K/uL (0.7-4.9); Hematocrit 32.7 % (36.0-45.0); Lymphocytes % 29.5 % (15.3-44.8); MCV 90.7 fL (80-100); MPV 6.6 fL (7.6-11.3)
[2022-07-06] MEDS ORDERED: ONDANSETRON 4 MG/2 ML VIAL ONE (18:35)
[2022-07-06 18:37] LABS: Albumin 3.6 g/dL (3.4-5.0); Bilirubin Total 0.2 mg/dL (0.2-1.0); Potassium 3.9 mEq/L (3.5-5.1); Protein, Total 7.6 g/dL (6.4-8.2)
--- NOTE | 2022-07-06 18:39 | ER ---
Nurse's Notes [facility] Name: Jaimie Amanda Age: 61 yrs Sex: Female : 1960 Arrival Date: 07/06/2022 Time: 17:22 Bed 13 Private MD: Diagnosis: Nausea with vomiting, unspecified Presentation: 07/06 17:23 Chief complaint: Patient states: nausea and vomiting, pending follow-up with GI (Dr. mckenna Smith). Seen here yesterday. 17:23 Coronavirus screen: vomiting. Ebola Screen: Patient denies travel to an Ebola-affected [facility] in the 21 days before illness onset. Initial Sepsis Screen: Does the patient meet any 2 criteria? No. Patient's initial sepsis screen is negative. Does the patient have a suspected source of infection? No. Patient's initial sepsis screen is negative. Risk Assessment: Do you want to hurt yourself or someone else? Patient reports no desire to harm self or others. Onset of symptoms was June 2022. 17:23 Acuity: ZHEN 3 aa5 17:23 Method Of Arrival: EMS: [facility] aa5 Historical: - Allergies: 17:29 hydrochlorothiazide; aa5 - PMHx: 17:29 Anxiety; Chronic Abdominal Pain; Hypertensive disorder; Hypothyroidism; low NA; NIDDM; aa5 - PSHx: 17:29 Thyroidectomy; aa5 - Immunization history:: Adult Immunizations unknown. - Social history:: Smoking status: unknown. Screenin:30 [facility] ED Fall Risk Assessment (Adult) History of falling in the last 3 months, nj1 including since admission No falls in past 3 months (0 pts) Confusion or Disorientation No (0 pts) Intoxicated or Sedated No (0 pts) Impaired Gait No (0 pts) Mobility Assist Device Used No (0 pt) Altered Elimination No (0 pt) Score/Fall Risk Level 0 - 2 = Low Risk Oriented to surroundings, Maintained a safe environment, Hourly rounding (assess needs \\T\\ fall precautionary measures) done. Abuse screen: Denies threats or abuse. Denies injuries from another. 17:30 Nutritional screening: No deficits noted. Tuberculosis screening: No symptoms or risk nj1 factors identified. Assessment: 17:30 General: Appears in no apparent distress. uncomfortable, Behavior is calm, cooperative, nj1 appropriate for age. GI: Reports nausea. 17:30 Pain: Denies pain. nj1 17:30 Neuro: Level of Consciousness is awake, alert, obeys commands, Oriented to person, nj1 place, time, situation. Cardiovascular: Patient's skin is warm and dry. Respiratory: Airway is patent Respiratory effort is even, unlabored. 17:30 Reassessment: Pt refuses EKG, ED provider notified. nj1 18:35 Reassessment: Patient appears in no apparent distress at this time. Patient and/or nj1 family updated on plan of care and expected duration. Pain level reassessed. Patient is alert, oriented x 3, equal unlabored respirations, skin warm/dry/pink. Pt ready to leave, states "doctor told me i could leave". Requesting for this RN to discontinue IV access. Dr Mota notified. Vital Signs: 17:23 BP 158 / 78; Pulse 61; Resp 16; Temp 98.4(O); Pulse Ox 98% on R/A; aa5 18:30 BP 148 / 76; Pulse 68; Resp 18; Pulse Ox 100% on R/A; Pain 0/10; nj1 18:30 Pain Scale: Adult [facility] ED Course: 17:23 Patient arrived in ED. eb 17:23 Arm band placed on. aa5 17:25 Ruperto Mota MD is Attending Physician. jr11 17:30 Triage completed. aa5 17:30 Patient has correct armband on for positive identification. Bed in low position. Call [facility] light in reach. 17:40 Berna Lomax, RN is Primary Nurse. nj1 18:00 Inserted saline lock: 24 gauge in right antecubital area, using aseptic technique. id1 Blood collected. 18:11 CBC with Diff Sent. nj1 18:11 CMP Sent. nj1 18:11 Lipase Sent. nj1 18:35 No provider procedures requiring assistance completed. IV discontinued, intact, nj1 bleeding controlled. Administered Medications: 18:00 Drug: NS 0.9% IV 1000 ml Route: IV; Rate: 1 bolus; Site: right antecubital; nj1 18:35 Follow up: Response: No adverse reaction; IV Status: Order to discontinue infusion; IV nj Intake: 100ml 18:00 Drug: metoCLOPramide IVP 10 mg Route: IVP; Site: right antecubital; nj1 18:54 Follow up: Response: No adverse reaction nj1 18:35 Drug: Ondansetron IVP 4 mg Route: IVP; Site: right antecubital; nj1 18:39 Follow up: Response: No adverse reaction nj1 Medication: 18:39 VIS not applicable for this client. nj1 Intake: 18:35 IV: 100ml; Total: 100ml. nj1 Outcome: 18:39 Discharge ordered by . jr11 18:39 Discharged to home ambulatory. nj1 18:39 Condition: stable 18:39 Discharge instructions given to patient, Instructed on discharge instructions, follow up and referral plans. Demonstrated understanding of instructions, follow-up care. 18:39 Patient left the ED. nj1 Signatures: Bhavna Corado, RN RN aa5 Nikkie Merrill Jose, MD MD jr11 Berna Lomax RN RN nj1 Corrections: (The following items were deleted from the chart) 19:29 19:26 Patient left the ED. nj1 nj1
--- NOTE | 2022-07-06 18:40 | EDPHYS ---
Physician Documentation [facility] Name: Jaimie Amanda Age: 61 yrs Sex: Female : 1960 Arrival Date: 07/06/2022 Time: 17:22 Bed 13 Private MD: ED Physician Ruperto Mota HPI: 07/06 17:35 This 61 yrs old Female presents to ER via EMS with complaints of Nausea/Vomiting. jr11 17:35 Patient is a 61-year-old history of alcohol abuse here with acute on chronic nausea jr11 vomiting. Denies any abdominal pain. Of note, patient has had 7 visits to the emergency department this month. Today she states she has been vomiting all day. Patient denies any pain whatsoever, no fever no chills, ROS baseline otherwise.Denies recent trauma . Historical: - Allergies: 17:29 hydrochlorothiazide; aa5 - PMHx: 17:29 Anxiety; Chronic Abdominal Pain; Hypertensive disorder; Hypothyroidism; low NA; NIDDM; aa5 - PSHx: 17:29 Thyroidectomy; aa5 - Immunization history:: Adult Immunizations unknown. - Social history:: Smoking status: unknown. ROS: 17:35 All other systems are negative. jr11 Exam: 17:35 Constitutional: This is a well developed, well nourished patient who is awake, alert, jr11 and in no acute distress. Head/Face: Normocephalic, atraumatic. Eyes: Extra-ocular motions intact. Lids and lashes normal. Conjunctiva and sclera are non-icteric and not injected. Cornea within normal limits. Periorbital areas with no swelling, redness, or edema. ENT: dry MM Chest/axilla: Normal chest wall appearance and motion. Nontender with no deformity. No lesions are appreciated. Cardiovascular: Regular rate and rhythm with a normal S1 and S2. No gallops, murmurs, or rubs. Normal PMI, no JVD. No pulse deficits. Respiratory: Lungs have equal breath sounds bilaterally, clear to auscultation and percussion. No rales, rhonchi or wheezes noted. No increased work of breathing, no retractions or nasal flaring. Abdomen/GI: Soft, non-tender, with normal bowel sounds. No distension or tympany. No guarding or rebound. No evidence of tenderness throughout. Back: No spinal tenderness. No costovertebral tenderness. Full range of motion. Skin: Warm, dry with normal turgor. Normal color with no rashes, no lesions, and no evidence of cellulitis. MS/ Extremity: Pulses equal, no cyanosis. Neurovascular intact. Full, normal range of motion. Vital Signs: 17:23 BP 158 / 78; Pulse 61; Resp 16; Temp 98.4(O); Pulse Ox 98% on R/A; aa5 18:30 BP 148 / 76; Pulse 68; Resp 18; Pulse Ox 100% on R/A; Pain 0/10; nj1 18:30 Pain Scale: Adult nj1 MDM: 17:26 Patient medically screened. [facility] 17:35 Differential diagnosis: Nonspecific abd pain, gastroenteritis. Data reviewed: vital [facility] signs, nurses notes. 18:39 ED course: Patient had capacity make decisions, at this time stated she wanted nausea [facility] medicine and to leave. Cannot restrain patient against her will, welcome to return at any point to complete her work-up.. 07/06 17:26 Order name: CBC with Diff; Complete Time: 18:28 [facility] 07/06 17:26 Order name: CMP; Complete Time: 18:52 [facility] 07/06 17:26 Order name: Lipase; Complete Time: 18:52 [facility] 07/06 17:35 Order name: EKG; Complete Time: 17:36 [facility] 07/06 17:26 Order name: IV Saline Lock; Complete Time: 18:11 [facility] 07/06 17:26 Order name: Labs collected and sent; Complete Time: 18:11 [facility] Administered Medications: 18:00 Drug: NS 0.9% IV 1000 ml Route: IV; Rate: 1 bolus; Site: right antecubital; nj1 18:35 Follow up: Response: No adverse reaction; IV Status: Order to discontinue infusion; IV nj1 Intake: 100ml 18:00 Drug: metoCLOPramide IVP 10 mg Route: IVP; Site: right antecubital; nj1 18:54 Follow up: Response: No adverse reaction nj1 18:35 Drug: Ondansetron IVP 4 mg Route: IVP; Site: right antecubital; nj1 18:39 Follow up: Response: No adverse reaction nj1 Disposition Summary: 07/06/22 18:39 Discharge Ordered Location: Home jr11 Condition: Stable jr11 Diagnosis - Nausea with vomiting, unspecified jr11 Discharge Instructions: - Discharge Summary Sheet jr11 - Nausea and Vomiting, Adult jr11 Forms: - Medication Reconciliation Form jr11 - Thank You Letter jr11 - Antibiotic Education jr11 - Prescription Opioid Use jr11 Signatures: Dispatcher [employer] EDMS Bhavna Corado RN RN aa5 Ruperto Mota MD MD jr11 Berna Lomax RN RN nj1 Corrections: (The following items were deleted from the chart) 17:36 17:35 Patient is a 61-year-old history of alcohol abuse here with acute on chronic jr11 nausea vomiting. Denies any abdominal pain. Of note, patient has had 7 visits to the emergency department this month. Today she states she has been vomiting all day. Patient denies any pain whatsoever, no fever no chills, ROS baseline otherwise.. jr11
[2022-07-06 19:32] VITALS: TEMP 98.4
[2022-07-06 19:33] VITALS: BP 148/76; O2SAT 100
== END 2022-07-06 19:26 | disposition home or self-care (01) ==
LOC: ER 17:22
DX: R11.2 Nausea with vomiting, unspecified (principal); I10 Essential (primary) hypertension; Z88.8 Allergy status to other drugs, medicaments and biological substances
CPT/HCPCS: 85025; 36415; 83690; 80053; J2765; J2405; J7030; 96361; 96374; 96375; 99284

== ENCOUNTER 2022-07-28 06:58 | Emergency (ER) | payer OTHER ==
--- OUTSIDE RECORDS SUMMARY | 2022-07-28 07:11 | XMS REPORT | Continuity of Care Document ---
:1960 Author Organization [facility] t Address [address] [place] [address] [place] [address] Care Team Providers Name Role Phone Maya CLARK, Jacinda Primary Care Physician [phone] MATT SIMPSON Attending Clinician Unavailable MATT SIMPSON Attending Clinician Unavailable Doctor Unassigned, [place] Attending Clinician Unavailable WALLY KRISHNAMURTHY Attending Clinician Unavailable Natacha Brewster Attending Clinician Payers Payer Name Policy Type Policy Number Effective Date Expiration Date Sarina castelan [facility] JESSICA [id number] 2017 00:00:00 PLUS Problems This patient has [...] Quantity Comments Source History of Smokes tobacco [facility] Alcohol intake 2016-05-01 2016-05-[address] [facility] 00:00:00 00:00:00 non-drinker of Medical Ce nter alcohol (finding) Sex Assigned At [birth year] [facility] 00:00:00 00:00:00 [facility] Smoking Status Start Date Stop Date Source Smokes tobacco daily 2016-05-01 00:00:00 [facility] Medications Ordered Filled Start Stop Current [...] capsule 00:00: 00 OXcarbazepi 2017-0 Yes 600mg Q.[id number] Take [address] [facility] [address] [facility] 2-23 [id number] [facility] 10:23: 3D mouth 3 Med ical 600 [facility] ([facility] Center tablet times daily. PARoxetine 2017-0 Yes 40mg QD Take [address] (PAXIL) 40 2-23 [facility] tablet 10:23: nightly. [address] PARoxetine 2017-0 Yes 40mg QD Take [address] (PAXIL) 40 2-[facility] tablet 10:23: nightly. [address] OXcarbazepi 2017-0 Yes 600mg Q.[id number] Take [address] ne 2-23 [id number] [facility] ([facility]) 10:23: 3D mouth 3 Med ical 600 [facility] (three) Center tablet times daily. PARoxetine 2017-0 Yes 40mg QD Take [address] (PAXIL) 40 2-[facility] tablet 10:23: nightly. [address] 2017-0 Yes 600mg Q.[id number] Take [address] [address] ne 2-23 [id number] [facility] ([facility]) 10:23: 3D mouth 3 Med ical 600 [facility] 59 (three) Center tablet times daily. PARoxetine 2017-0 Yes 40mg QD Take [address] (PAXIL) 40 2-[facility] tablet 10:23: nightly. [address] OXcarbazepi 2017-0 Yes 600mg Q.[id number] Take [address] ne 2-23 [id number] [facility] ([facility]) 10:23: 3D mouth 3 Med ical 600 [facility] 59 (three) Center tablet times daily. PARoxetine 2017-0 Yes 40mg QD Take [address] (PAXIL) 40 2-23 [facility] tablet 10:23: nightly. [address] OXcarbazepi 2017-0 Yes 600mg Q.32518317 Take [address] ne 2-23 [id number] [facility] ([facility]) 10:23: 3D mouth 3 Med ical 600 MG 59 (three) Center tablet times daily. PARoxetine 2017-0 Yes 40mg QD Take [address] (PAXIL) 40 2-23 [facility] 10:23: nightly. [address] OXcarbazepi 2017-0 Yes 600mg Q.[id number] Take [address] ne 2-23 [id number] [facility] (TR[facility]) 10:23: 3D mouth 3 Med ical 600 [facility] 59 (three) Center tablet times daily. PARoxetine 2017-0 Yes 40mg QD Take [address] (PAXIL) 40 2-23 [facility] tablet 10:23: nightly. [address] OXcarbazepi 2017-0 Yes 600mg Q.[id number] Take [address] ne 2-23 [id number] [facility] ([facility]) 10:23: 3D mouth 3 Med ical 600 [facility] 59 (three) Center tablet times daily. PARoxetine 2017-0 Yes 40mg QD Take [address] (PAXIL) 40 2-23 [facility] tablet 10:23: nightly. [address] OXcarbazepi 2017-0 Yes 600mg Q.[id number] Take [address] ne 2-23 [id number] [facility] (TR[facility]) 10:23: 3D mouth 3 Med ical 600 MG 59 (three) Center tablet times daily. PARoxetine 2017-0 Yes 40mg QD Take [address] (PAXIL) 40 2-23 [facility] tablet 10:23: nightly. [address] OXcarbazepi 2017-0 Yes 600mg Q.[id number] Take [address] ne 2-23 [id number] [facility] (TRILEPTAL) 10:23: 3D mouth 3 Med ical 600 MG 59 (three) Center tablet times daily. OXcarbazepi 2017-0 Yes 600mg Q.[id number] Take [address] ne 2-23 [id number] [facility] (TRILEPTAL) 10:23: 3D mouth 3 Med ical 600 MG 59 (three) Center tablet times daily. PARoxetine 2017-0 Yes 40mg QD Take [address] (PAXIL) 40 2-23 [facility] tablet 10:23: nightly. [address] OXcarbazepi 2017-0 Yes 600mg Q.[id number] Take [address] ne 2-23 [id number] [facility] (TRILEPTAL) 10:23: 3D mouth 3 Med ical 600 MG 59 (three) Center tablet times daily. PARoxetine 2017-0 Yes 40mg QD Take [address] (PAXIL) 40 2-23 [facility] tablet 10:23: nightly. [address] OXcarbazepi 2017-0 Yes 600mg Q.[id number] Take [address] ne 2-23 [id number] [facility] (TRILEPTAL) 10:23: 3D mouth 3 Med ical 600 MG 59 (three) Center tablet times daily. PARoxetine 2017-0 Yes 40mg QD Take [address] (PAXIL) 40 2-23 [facility] tablet 10:23: nightly. [address] PARoxetine 2017-0 Yes 40mg QD Take [address] (PAXIL) 40 2-23 [facility] tablet 10:23: nightly. [address] 2017-0 Yes 600mg Q.[id number] Take [address] ne 2-23 [id number] [facility] (TRILEPTAL) 10:23: 3D mouth 3 Med ical 600 MG 59 (three) Center tablet times daily. PARoxetine 2017-0 Yes 40mg QD Take [address] (PAXIL) 40 2-23 [facility] tablet 10:23: nightly. [address] 2017-0 Yes 600mg Q.[id number] Take [address] ne 2-23 [id number] [facility] (TRILEPTAL) 10:23: 3D mouth 3 Med ical 600 MG 59 (three) Center tablet times daily. PARoxetine 2017-0 Yes 40mg QD Take [address] (PAXIL) 40 2-23 [facility] tablet 10:23: nightly. [address] OXcarbazepi 2017-0 Yes 600mg Q.42289005 Take [address] ne 2-23 [id number] [facility] (TRILEPTAL) 10:23: 3D mouth 3 Med ical 600 MG 59 (three) Center tablet times daily. PARoxetine 2017-0 Yes 40mg QD Take [address] (PAXIL) 40 2-23 [facility] tablet 10:23: nightly. [address] OXcarbazepi 2017-0 Yes 600mg Q.[id number] Take [address] ne 2-23 [id number] [facility] (TRILEPTAL) 10:23: 3D mouth 3 Med ical 600 [facility] 59 (three) Center tablet times daily. PARoxetine 2017-0 Yes 40mg QD Take [address] (PAXIL) 40 2-23 [facility] tablet 10:23: nightly. [facility] [address] OXcarbazepi 2017-0 Yes 600mg Q.[id number] Take [address] ne 2-23 [id number] [facility] (TRILEPTAL) 10:23: 3D mouth 3 Med ical 600 MG 59 (three) Center tablet times daily. PARoxetine 2017-0 Yes 40mg QD Take [address] (PAXIL) 40 2-23 [facility] tablet 10:23: nightly. [facility] [address] OXcarbazepi 2017-0 Yes 600mg Q.[id number] Take [address] ne 2-23 [id number] [facility] (TRILEPTAL) 10:23: 3D mouth 3 Med ical 600 MG 59 (three) Center tablet times daily. PARoxetine 2017-0 Yes 40mg QD Take [address] (PAXIL) 40 2-23 [facility] tablet 10:23: nightly. [facility] [address] OXcarbazepi 2017-0 Yes 600mg Q.[id number] Take [address] ne 2-23 [id number] [facility] (TRILEPTAL) 10:23: 3D mouth 3 Med ical 600 MG 59 (three) Center tablet times daily. PARoxetine 2017-0 Yes 40mg QD Take [address] (PAXIL) 40 2-23 [facility] tablet 10:23: nightly. [facility] [address] OXcarbazepi 2017-0 Yes 600mg Q.[id number] Take [address] ne 2-23 [id number] [facility] (TRILEPTAL) 10:23: 3D mouth 3 Med ical 600 MG 59 (three) Center tablet times daily. PARoxetine 2017-0 Yes 40mg QD Take [address] (PAXIL) 40 2-23 [facility] tablet 10:23: nightly. [facility] [address] OXcarbazepi 2017-0 Yes 600mg Q.[id number] Take [address] ne 2-23 [id number] [facility] (TRILEPTAL) 10:23: 3D mouth 3 Med ical 600 MG 59 (three) Center tablet times daily. PARoxetine 2017-0 Yes 40mg QD Take [address] (PAXIL) 40 2-23 [facility] tablet 10:23: nightly. [facility] [address] OXcarbazepi 2017-0 Yes 600mg Q.[id number] Take [address] ne 2-23 [id number] [facility] (TRILEPTAL) 10:23: 3D mouth 3 Med ical 600 MG 59 (three) Center tablet times daily. PARoxetine 2017-0 Yes 40mg QD Take [address] (PAXIL) 40 2-23 [facility] tablet 10:23: nightly. [address] OXcarbazepi 2017-0 Yes 600mg Q.[id number] Take [address] ne 2-23 [id number] [facility] (TRILEPTAL) 10:23: 3D mouth 3 Med ical 600 MG 59 (three) Center tablet times daily. PARoxetine 2017-0 Yes 40mg QD Take [address] (PAXIL) 40 2-23 [facility] tablet 10:23: nightly. [address] OXcarbazepi 2017-0 Yes 600mg Q.[id number] Take [address] ne 2-23 [id number] [facility] (TRILEPTAL) 10:23: 3D mouth 3 Med ical 600 MG 59 (three) Center tablet times daily. OXcarbazepi 2017-0 Yes 600mg Q.[id number] Take [address] ne 2-23 [id number] [facility] (TRILEPTAL) 10:23: 3D mouth 3 Med ical 600 MG 59 (three) Center tablet times daily. PARoxetine 2017-0 Yes 40mg QD Take [address] (PAXIL) 40 2-23 [facility] tablet 10:23: nightly. [facility] [address] OXcarbazepi 2017-0 Yes 600mg Q.[id number] Take [address] ne 2-23 [id number] [facility] (TRILEPTAL) 10:23: 3D mouth 3 Med ical 600 MG 59 (three) Center tablet times daily. PARoxetine 2017-0 Yes 40mg QD Take [address] (PAXIL) 40 2-23 [facility] tablet 10:23: nightly. [address] 2017-0 Yes 600mg Q.[id number] Take [address] ne 2-23 [id number] [facility] (TRILEPTAL) 10:23: 3D mouth 3 Med ical 600 MG 59 (three) Center tablet times daily. PARoxetine 2017-0 Yes 40mg QD Take [address] (PAXIL) 40 2-23 [facility] tablet 10:23: nightly. [address] PARoxetine 2017-0 Yes 40mg QD Take [address] (PAXIL) 40 2-23 [facility] tablet 10:23: nightly. [address] 2017-0 Yes 600mg Q.[id number] Take [address] ne 2-23 [id number] [facility] (TRILEPTAL) 10:23: 3D mouth 3 Med ical 600 MG 59 (three) Center tablet times daily. PARoxetine 2017-0 Yes 40mg QD Take [address] (PAXIL) 40 2-23 [facility] tablet 10:23: nightly. [address] 2017-0 Yes 600mg Q.[id number] Take [address] ne 2-23 [id number] [facility] (TRILEPTAL) 10:23: 3D mouth 3 Med ical 600 MG 59 (three) Center tablet times daily. PARoxetine 2017-0 Yes 40mg QD Take [address] (PAXIL) 40 2-23 [facility] tablet 10:23: nightly. [address] OXcarbazepi 2017-0 Yes 600mg Q.41444710 Take [address] ne 2-23 [id number] [facility] (TRILEPTAL) 10:23: 3D mouth 3 Med ical 600 [facility] 59 (three) Center tablet times daily. PARoxetine 2017-0 Yes 40mg QD Take [address] (PAXIL) 40 2-23 [facility] tablet 10:23: nightly. [address] OXcarbazepi 2017-0 Yes 600mg Q.[id number] Take [address] ne 2-23 [id number] [facility] (TRILEPTAL) 10:23: 3D mouth 3 Med ical 600 MG 59 (three) Center tablet times daily. PARoxetine 2017-0 Yes 40mg QD Take [address] (PAXIL) 40 2-23 [facility] tablet 10:23: nightly. [facility] [address] OXcarbazepi 2017-0 Yes 600mg Q.50038015 Take [address] ne 2-23 [id number] [facility] (TRILEPTAL) 10:23: 3D mouth 3 Med ical 600 MG 59 (three) Center tablet times daily. PARoxetine 2017-0 Yes 40mg QD Take [address] (PAXIL) 40 2-23 [facility] tablet 10:23: nightly. [facility] [address] OXcarbazepi 2017-0 Yes 600mg Q.77234305 Take [address] ne 2-23 [id number] [facility] (TRILEPTAL) 10:23: 3D mouth 3 Med ical 600 MG 59 (three) Center tablet times daily. PARoxetine 2017-0 Yes 40mg QD Take [address] (PAXIL) 40 2-23 [facility] tablet 10:23: nightly. [address] OXcarbazepi 2017-0 Yes 600mg Q.07201701 Take [address] ne 2-23 [id number] [facility] (TRILEPTAL) 10:23: 3D mouth 3 Med ical 600 MG 59 (three) Center tablet times daily. PARoxetine 2017-0 Yes 40mg QD Take [address] (PAXIL) 40 2-23 [facility] tablet 10:23: nightly. [facility] [address] [place] OXcarbazepi 2017-0 Yes 600mg Q.[id number] Take [address] ne 2-23 [id number] [facility] (TRILEPTAL) 10:23: 3D mouth 3 Med ical 600 [facility] 59 (three) Center tablet times daily. OXcarbazepi 2017-0 Yes 600mg Q.74017077 Take [address] ne 2-23 [id number] [facility] (TRILEPTAL) 10:23: 3D mouth 3 Med ical 600 MG 59 (three) Center tablet times daily. PARoxetine 2017-0 Yes 40mg QD Take [address] (PAXIL) 40 2-23 [facility] tablet 10:23: nightly. [address] OXcarbazepi 2017-0 Yes 600mg Q.[id number] Take [address] ne 2-23 [id number] [facility] (TRILEPTAL) 10:23: 3D mouth 3 Med ical 600 [facility] 59 (three) Center tablet times daily. PARoxetine 2017-0 Yes 40mg QD Take [address] (PAXIL) 40 2-23 [facility] tablet 10:23: nightly. [address] OXcarbazepi 2017-0 Yes 600mg Q.[id number] Take [address] ne 2-23 [id number] [facility] (TRILEPTAL) 10:23: 3D mouth 3 Med ical 600 MG 59 (three) Center tablet times daily. PARoxetine 2017-0 Yes 40mg QD Take [address] (PAXIL) 40 2-23 [facility] tablet 10:23: nightly. [address] LORazepam 2017-0 Yes 1mg Take 1 [...] Goal Plan of Care Note [code = 29587-1] Goal Plan of Care Note [code = 93228-4] Goal Plan of Care Note [code = 60906-9] Goal Plan of Care Note [code = 41644-9] Goal Plan of Care Note [code = 93949-3] Goal Plan of Care Note [code = 07874-6] Goal Plan of Care Note [code = 10584-5] Goal Plan of Care Note [code = 52932-6] Goal Plan of Care Note [code = 99258-8] Goal Plan of Care Note [code = 04021-7] Goal Plan of Care Note [code = 76288-9] Goal Plan of Care Note [code = 10845-4] Goal Plan of Care Note [code = 98231-1] Goal Plan of Care Note [code = 80710-6] Goal Plan of Care Note [code = 17240-3] Goal Plan of Care Note [code = 68761-1] Goal Plan of Care Note [code = 55842-6] Goal Plan of Care Note [code = 01259-8] Goal Plan of Care Note [code = 73931-3] Goal Plan of Care Note [code = 80138-7] Goal Plan of Care Note [code = 54978-9] Goal Plan of Care Note [code = 41846-9] Goal Plan of Care Note [code = 21063-7] Goal Plan of Care Note [code = 48540-3] Goal Plan of Care Note [code = 18198-2] Goal Plan of Care Note [code = 20603-8] Goal Plan of Care Note [code = 05094-7] Goal Plan of Care Note [code = 33345-9] Goal Plan of Care Note [code = 92121-4] Goal Plan of Care Note [code = 10844-0] Goal Plan of Care Note [code = 76409-8] Goal Plan of Care Note [code = 53335-9] Goal Plan of Care Note [code = 41551-2] Goal Plan of Care Note [code = 83031-6] Goal Plan of Care Note [code = 08557-9] Goal Plan of Care Note [code = 53096-6] Goal Plan of Care Note [code = 45195-1] Goal Plan of Care Note [code = 63445-4] Goal Plan of Care Note [code = 40354-5] Goal Plan of Care Note [code = 21375-4] Goal Plan of Care Note [code = 27296-0] Goal Plan of Care Note [code = 45675-4] Goal Plan of Care Note [code = 05239-2] Goal Plan of Care Note [code = 94211-5] Goal Plan of Care Note [code = 85658-3] Goal Plan of Care Note [code = 67634-6] Goal Plan of Care Note [code = 30256-0] Goal Plan of Care Note [code = 67507-8] Goal Plan of Care Note [code = 04402-3] Goal Plan of Care Note [code = 75433-2] Goal Plan of Care Note [code = 54403-3] Goal Plan of Care Note [code = 96254-2] Goal Plan of Care Note [code = 74464-8] Goal Plan of Care Note [code = 76820-3] Goal Plan of Care Note [code = 12714-4] Goal Plan of Care Note [code = 06269-6] Goal Plan of Care Note [code = 15573-4] Goal Plan of Care Note [code = 47584-8] Goal Plan of Care Note [code = 76595-6] Goal Plan of Care Note [code = 59468-4] Goal Plan of Care Note [code = 19397-4] Goal Plan of Care Note [code = 35017-6] Goal Plan of Care Note [code = 76660-6] Goal Plan of Care Note [code = 63956-2] Goal Plan of Care Note [code = 54060-9] Goal Plan of Care Note [code = 03569-4] Goal Plan of Care Note [code = 18233-3] Goal Plan of Care Note [code = 04991-0] Goal Plan of Care Note [code = 98592-3] Goal Plan of Care Note [code = 04777-5] Goal Plan of Care Note [code = 34754-9] Goal Plan of Care Note [code = 58899-1] Goal Plan of Care Note [code = 08645-9] Goal Plan of Care Note [code = 58039-7] Goal Plan of Care Note [code = 88808-3] Goal Plan of Care Note [code = 32789-6] Goal Plan of Care Note [code = 48882-1] Goal Plan of Care Note [code = 55427-1] Goal Plan of Care Note [code = 15435-9] Goal Plan of Care Note [code = 39419-4] Goal Plan of Care Note [code = 06412-6] Goal Plan of Care Note [code = 33053-6] Goal Plan of Care Note [code = 92070-7] Goal Plan of Care Note [code = 33440-7] Goal Plan of Care Note [code = 67243-4] Goal Plan of Care Note [code = 63566-9] Goal Plan of Care Note [code = 56336-7] Goal Plan of Care Note [code = 55232-9] Goal Plan of Care Note [code = 59881-4] Goal Plan of Care Note [code = 30459-1] Goal Plan of Care Note [code = 16130-7] Goal Plan of Care Note [code = 16606-2] Goal Plan of Care Note [code = 71448-5] Goal Plan of Care Note [code = 22035-5] Goal Plan of Care Note [code = 14442-1] Goal Plan of Care Note [code = 44231-3] Goal Plan of Care Note [code = 56125-7] Goal Plan of Care Note [code = 55334-3] Goal Plan of Care Note [code = 78684-8] Goal Plan of Care Note [code = 87350-9] Goal Plan of Care Note [code = 24850-9] Goal Plan of Care Note [code = 13536-1] Goal Plan of Care Note [code = 17858-6] Goal Plan of Care Note [code = 18248-8] Goal Plan of Care Note [code = 07779-6] Goal Plan of Care Note [code = 22263-7] Goal Plan of Care Note [code = 40927-5] Goal Plan of Care Note [code = 58807-6] Goal Plan of Care Note [code = 82356-7] Goal Plan of Care Note [code = 95206-8] Goal Plan of Care Note [code = 02130-2] Goal Plan of Care Note [code = 90902-7] Goal Plan of Care Note [code = 54365-4] Goal Plan of Care Note [code = 46809-5] Goal Plan of Care Note [code = 02166-4] Goal Plan of Care Note [code = 49413-5] Goal Plan of Care Note [code = 62534-8] Goal Plan of Care Note [code = 33801-9] Goal Plan of Care Note [code = 50363-5] Goal Plan of Care Note [code = 06568-4] Goal Plan of Care Note [code = 66275-6] Goal Plan of Care Note [code = 21848-7] Goal Plan of Care Note [code = 45089-1] Goal Plan of Care Note [code = 19213-9] Goal Plan of Care Note [code = 04785-9] Goal Plan of Care Note [code = 29733-5] Goal Plan of Care Note [code = 70305-2] Goal Plan of Care Note [code = 66476-6] Goal Plan of Care Note [code = 76470-8] Goal Plan of Care Note [code = 12670-1] Goal Plan of Care Note [code = 33743-3] Goal Plan of Care Note [code = 91276-7] Goal Plan of Care Note [code = 34812-4] Goal Plan of Care Note [code = 50475-8] Goal Plan of Care Note [code = 61350-8] Goal Plan of Care Note [code = 12694-0] Goal Plan of Care Note [code = 21863-1] Goal Plan of Care Note [code = 18902-7] Goal Plan of Care Note [code = 70585-7] Goal Plan of Care Note [code = 91238-9] Goal Plan of Care Note [code = 70504-1] Goal Plan of Care Note [code = 88576-8] Goal Plan of Care Note [code = 35888-2] Goal Plan of Care Note [code = 34327-1] Goal Plan of Care Note [code = 67979-2] Goal Plan of Care Note [code = 44132-5] Goal Plan of Care Note [code = 95052-6] Goal Plan of Care Note [code = 39974-3] Goal Plan of Care Note [code = 55421-0] Goal Plan of Care Note [code = 13519-4] Goal Plan of Care Note [code = 84193-3] Goal Plan of Care Note [code = 53610-4] Goal Plan of Care Note [code = 49241-2] Goal Plan of Care Note [code = 22813-3] Goal Plan of Care Note [code = 58397-5] Goal Plan of Care Note [code = 11764-9] Goal Plan of Care Note [code = 86754-5] Goal Plan of Care Note [code = 18864-2] Goal Plan of Care Note [code = 40017-4] Goal Plan of Care Note [code = 95293-3] Goal Plan of Care Note [code = 48508-5] Goal Plan of Care Note [code = 99044-6] Goal Plan of Care Note [code = 32833-7] Goal Plan of Care Note [code = 28163-4] Goal Plan of Care Note [code = 53478-4] Goal Plan of Care Note [code = 09641-6] Goal Plan of Care Note [code = 00859-0] Goal Plan of Care Note [code = 60059-6] Goal Plan of Care Note [code = 97654-0] Goal Plan of Care Note [code = 49441-5] Goal Plan of Care Note [code = 16761-5] Goal Plan of Care Note [code = 80452-0] Goal Plan of Care Note [code = 52862-0] Goal Plan of Care Note [code = 70494-6] Goal Plan of Care Note [code = 13588-1] Goal Plan of Care Note [code = 77002-0] Goal Plan of Care Note [code = 69506-1] Goal Plan of Care Note [code = 64254-4] Goal Plan of Care Note [code = 60923-9] Goal Plan of Care Note [code = 67872-2] Goal Plan of Care Note [code = 32099-6] Goal Plan of Care Note [code = 46344-3] Goal Plan of Care Note [code = 85653-7] Goal Plan of Care Note [code = 35059-1] Goal Plan of Care Note [code = 87013-6] Goal Plan of Care Note [code = 16105-6] Goal Plan of Care Note [code = 44190-1] Goal Plan of Care Note [code = 84176-4] Goal Plan of Care Note [code = 66670-0] Goal Plan of Care Note [code = 02076-0] Goal Plan of Care Note [code = 00110-3] Goal Plan of Care Note [code = 78696-8] Goal Plan of Care Note [code = 06532-1] Goal Plan of Care Note [code = 96943-1] Goal Plan of Care Note [code = 51726-7] Goal Plan of Care Note [code = 38508-4] Goal Plan of Care Note [code = 38903-7] Goal Plan of Care Note [code = 01144-5] Goal Plan of Care Note [code = 35033-6] Goal Plan of Care Note [code = 97516-6] Goal Plan of Care Note [code = 21926-6] Goal Plan of Care Note [code = 21936-0] Goal Plan of Care Note [code = 23370-1] Goal Plan of Care Note [code = 68583-8] Goal Plan of Care Note [code = 13705-3] Goal Plan of Care Note [code = 71565-8] Goal Plan of Care Note [code = 14060-5] Goal Plan of Care Note [code = 31706-8] Encounters Start End Encounter Admission Attending Care Care Encounter Source Date/Time Date/Time Type Type Clinicians Facility Department ID 2021-06-01 [facility] [id number] [place] 01:36:29 [id number] [facility] 2022-05-24 2022-05-24 Outpatient SFA SFA [id number] Cristian 10:36:59 10:36:59 0318 F Jerman 2022-02-11 2022-02-11 Outpatient SFA SFA [id number] Cristian 09:04:48 09:04:48 1206 F Jerman 2022-02-10 2022-02-10 Outpatient SFA SFA [id number] Cristian 09:29:34 09:29:34 1205 F Jerman 2022-02-10 2022-02-10 Outpatient [id number] [id number] 00:00:00 00:00:00 Visit 4089-4cab 089-4cab-9 -7vj8-t0q bf5-y2p312 [id number] bafa93 2022-01-10 2022-01-10 Outpatient SFA SFA [id number] Cristian 09:16:14 09:16:14 1104 F Jerman 2022-01-10 2022-01-10 Outpatient [id number]- [id number] accaa6-a 00:00:00 00:00:00 Visit aca9-4c83 ca9-4c83-a -i3ty-bk2 7eb-bc13f3 5c1n712w5 f032f9 2021-12-19 2021-12-19 Outpatient SFA SFA [id number] 022 Cristian 16:11:31 16:11:31 1013 F Jerman 2021-12-19 2021-12-19 Outpatient [id number] 00:00:00 00:00:00 Visit s864-661b 770-441f-a -adae-62b amelia-62bace iwesy03ts fd81af 2021-09-17 2021-09-17 Outpatient [id number]- [id number] g9eqoa-6 00:00:00 00:00:00 Visit 935a-4f50 35a-4f50-b -o82u-w8b 77d-c2ba85 [id number] [id number] 2020-08-03 2020-08-03 Outpatient [facility] [id number] [facility] 10:00:00 10:00:00 MATT SIMPSON [facility] 2020-07-25 2020-07-25 Orders Doctor ABE [id number] 00:00:00 00:00:00 Only Unassigned, BK 350.1.13.10 [place] [facility] [id number] 2019-09-26 2019-09-26 Outpatient R [facility] [id number] [facility] 16:00:00 16:00:00 WALLY [facility] 2018-10-21 2018-10-21 Telephone [facility] [id number] 00:00:00 00:00:00 Natacha Nguyen 350.1.13.10 [place] 4.2.7.2.686 [facility] [id number] [address] Results Test Description Test Time Test Comments Results Result Comments Source TSH, THIRD GENERATION 2022-05-26 02:57:49 Test Item Value Reference Range Interpretation Comme nts TSH, THIRD GENERATION (test code = 2821) 6.350 UIU/ML 0.400-4.100 H LIPID [id number] 01:09:34 Test Item Value Reference Range Interpretation [...] MOREINFORMATION , SEE CLIENT ANNOUNCE MENT AT [email or web address] RISK RATIO LDL/HDL 2.73 RATIO <3.22 [facility] has important (test code = 2238) pathology staff changes effecti ve 05/07/2022. New pathology staff will provide uninter rupted, excellent patie nt care and clinical consultation. S ee URL: [email or web address] UNLES S OTHERWISE INDIC ATED, ALL TESTING PER FORMED AT [facility] [employer], [facility]. [address] [place] [id number] ISIDRA CARTER DIRECTOR: Andrew WHITLEY CONNOR NUMBER [id number] CAP ACCREDITATION N O. [id number] HEMOGLOBIN [id number] 03:17:24 Test Item Value Reference Range Interpretation Comments HEMOGLOBIN A1c (test 6.4 % 4.2-5.6 H [employer]ES code = 23102) [employer] FOR HGB A1C: PREDIABETES/INC REASED [...] TESTING OR LABORATORY C ONSULTATION. TSH, THIRD [id number] 05:15:49 Test Item Value Reference Range Interpretation Comments TSH, THIRD GENERATION (test code 2.080 UIU/ML 0.400-4.100 = 2821) HEMOGLOBIN [id number] 03:46:00 Test Item Value Reference Range Interpretation Comments HEMOGLOBIN A1c (test 6.6 % 4.2-5.6 H AMERIC AN DIABETES code = 19131) [employer]ATION [employer] FOR HGB A1C: PREDIABETES/INC REASED [...] INDICATED, ALL TESTING PER FORMED ATCLINICAL PATH [facility], I [address]. [address] [place], [place] [address] LABORATORY DIRE CTOR: DIANA RUSS M.D. CLIA NUMBER [id number] [facility] [place]. [id number] LIPID [id number] 02:59:52 Test Item Value Reference Range Interpretation [...] MOREINFORMATION , SEE CLIENT ANNOUNCE MENT AT [email or web address] RISK RATIO LDL/HDL 4.02 RATIO <3.22 H (test code = 2238) [id number] 00:00:00 Test Item Value Reference Range Interpretation Comments TSH, THIRD GENERATION (test code 2.080 UIU/ML = 2821) [id number] 00:00:00 Test Item Value Reference Range Interpretation Comments TSH, THIRD GENERATION (test code 2.080 UIU/ML = 2821) [id number] 00:00:00 Test Item Value Reference Range Interpretation Comments TSH, THIRD GENERATION (test code 2.080 UIU/ML = 2821) LIPID [id number] 00:00:00 Test Item Value Reference Range Interpretation Comments CHOLESTEROL (test code = 2210) 292 MG/DL TRIGLYCERIDES (test code = 2232) 184 MG/DL HDL CHOLESTEROL (test code = 2220) 51 MG/DL CALC LDL CHOL (test code = 2237) 205 MG/DL RISK RATIO LDL/HDL (test code = 4.02 RATIO 2238) LIPID [id number] 00:00:00 Test Item Value Reference Range Interpretation Comments CHOLESTEROL (test code = 2210) 292 MG/DL TRIGLYCERIDES (test code = 2232) 184 MG/DL HDL CHOLESTEROL (test code = 2220) 51 MG/DL CALC LDL CHOL (test code = 2237) 205 MG/DL RISK RATIO LDL/HDL (test code = 4.02 RATIO 2238) HEMOGLOBIN [id number] 00:00:00 Test Item Value Reference Range Interpretation Comments HEMOGLOBIN A1c (test code = 11888) 6.6 % HEMOGLOBIN [id number] 00:00:00 Test Item Value Reference Range Interpretation Comments HEMOGLOBIN A1c (test code = 83845) 6.6 % HEMOGLOBIN [id number] 00:00:00 Test Item Value Reference Range Interpretation Comments HEMOGLOBIN A1c (test code = 86851) 6.6 % [id number] 00:00:00 Test Item Value Reference Range Interpretation Comments TSH, THIRD GENERATION (test code 2.080 UIU/ML = 2821) [id number] 00:00:00 Test Item Value Reference Range Interpretation Comments TSH, THIRD GENERATION (test code 2.080 UIU/ML = 2821) [id number] 00:00:00 Test Item Value Reference Range Interpretation Comments TSH, THIRD GENERATION (test code 2.080 UIU/ML = 2821) LIPID [id number] 00:00:00 Test Item Value Reference Range Interpretation Comments CHOLESTEROL (test code = 2210) 292 MG/DL TRIGLYCERIDES (test code = 2232) 184 MG/DL HDL CHOLESTEROL (test code = 2220) 51 MG/DL CALC LDL CHOL (test code = 2237) 205 MG/DL RISK RATIO LDL/HDL (test code = 4.02 RATIO 2238) LIPID [id number] 00:00:00 Test Item Value Reference Range Interpretation Comments CHOLESTEROL (test code = 2210) 292 MG/DL TRIGLYCERIDES (test code = 2232) 184 MG/DL HDL CHOLESTEROL (test code = 2220) 51 MG/DL CALC LDL CHOL (test code = 2237) 205 MG/DL RISK RATIO LDL/HDL (test code = 4.02 RATIO 2238) HEMOGLOBIN [id number] 00:00:00 Test Item Value Reference Range Interpretation Comments HEMOGLOBIN A1c (test code = 13614) 6.6 % HEMOGLOBIN [id number] 00:00:00 Test Item Value Reference Range Interpretation Comments HEMOGLOBIN A1c (test code = 20211) 6.6 % HEMOGLOBIN [id number] 00:00:00 Test Item Value Reference Range Interpretation Comments HEMOGLOBIN A1c (test code = 67759) 6.6 % [id number] 00:00:00 Test Item Value Reference Range Interpretation Comments TSH, THIRD GENERATION (test code 2.080 UIU/ML = 2821) [id number] 00:00:00 Test Item Value Reference Range Interpretation Comments TSH, THIRD GENERATION (test code 2.080 UIU/ML = 2821) LIPID [id number] 00:00:00 Test Item Value Reference Range Interpretation Comments CHOLESTEROL (test code = 2210) 292 MG/DL TRIGLYCERIDES (test code = 2232) 184 MG/DL HDL CHOLESTEROL (test code = 2220) 51 MG/DL CALC LDL CHOL (test code = 2237) 205 MG/DL RISK RATIO LDL/HDL (test code = 4.02 RATIO 2238) HEMOGLOBIN [id number] 00:00:00 Test Item Value Reference Range Interpretation Comments HEMOGLOBIN A1c (test code = 34342) 6.6 % HEMOGLOBIN [id number] 00:00:00 Test Item Value Reference Range Interpretation Comments HEMOGLOBIN A1c (test code = 02732) 6.6 % [id number] 00:00:00 Test Item Value Reference Range Interpretation Comments TSH, THIRD GENERATION (test code 2.080 UIU/ML = 2821) [id number] 00:00:00 Test Item Value Reference Range Interpretation Comments TSH, THIRD GENERATION (test code 2.080 UIU/ML = 2821) [id number] 00:00:00 Test Item Value Reference Range Interpretation Comments TSH, THIRD GENERATION (test code 2.080 UIU/ML = 2821) LIPID [id number] 00:00:00 Test Item Value Reference Range Interpretation Comments CHOLESTEROL (test code = 2210) 292 MG/DL TRIGLYCERIDES (test code = 2232) 184 MG/DL HDL CHOLESTEROL (test code = 2220) 51 MG/DL CALC LDL CHOL (test code = 2237) 205 MG/DL RISK RATIO LDL/HDL (test code = 4.02 RATIO 2238) LIPID [id number] 00:00:00 Test Item Value Reference Range Interpretation Comments CHOLESTEROL (test code = 2210) 292 MG/DL TRIGLYCERIDES (test code = 2232) 184 MG/DL HDL CHOLESTEROL (test code = 2220) 51 MG/DL CALC LDL CHOL (test code = 2237) 205 MG/DL RISK RATIO LDL/HDL (test code = 4.02 RATIO 2238) HEMOGLOBIN [id number] 00:00:00 Test Item Value Reference Range Interpretation Comments HEMOGLOBIN A1c (test code = 97174) 6.6 % HEMOGLOBIN [id number] 00:00:00 Test Item Value Reference Range Interpretation Comments HEMOGLOBIN A1c (test code = 13092) 6.6 % HEMOGLOBIN [id number] 00:00:00 Test Item Value Reference Range Interpretation Comments HEMOGLOBIN A1c (test code = 90244) 6.6 % HEMOGLOBIN [id number] 00:00:00 Test Item Value Reference Range Interpretation Comments HEMOGLOBIN A1c (test code = 45232) 6.8 % HEMOGLOBIN [id number] 00:00:00 Test Item Value Reference Range Interpretation Comments HEMOGLOBIN A1c (test code = 42964) 6.8 % HEMOGLOBIN [id number] 00:00:00 Test Item Value Reference Range Interpretation Comments HEMOGLOBIN A1c (test code = 34944) 6.8 % LIPID [id number] 00:00:00 Test Item Value Reference Range Interpretation Comments CHOLESTEROL (test code = 2210) 303 MG/DL TRIGLYCERIDES (test code = 2232) 191 MG/DL HDL CHOLESTEROL (test code = 2220) 61 MG/DL CALC LDL CHOL (test code = 2237) 205 MG/DL RISK RATIO LDL/HDL (test code = 3.36 RATIO 2238) LIPID [id number] 00:00:00 Test Item Value Reference Range Interpretation Comments CHOLESTEROL (test code = 2210) 303 MG/DL TRIGLYCERIDES (test code = 2232) 191 MG/DL HDL CHOLESTEROL (test code = 2220) 61 MG/DL CALC LDL CHOL (test code = 2237) 205 MG/DL RISK RATIO LDL/HDL (test code = 3.36 RATIO 2238) [id number] 00:00:00 Test Item Value Reference Range Interpretation Comments TSH, THIRD GENERATION (test code 0.769 UIU/ML = 2821) [id number] 00:00:00 Test Item Value Reference Range Interpretation Comments TSH, THIRD GENERATION (test code 0.769 UIU/ML = 2821) [id number] 00:00:00 Test Item Value Reference Range Interpretation Comments TSH, THIRD GENERATION (test code 0.769 UIU/ML = 2821) COMPREHENSIVE METABOLIC [id number] 00:00:00 Test Item Value Reference Range Interpretation Comments GLUCOSE (test code = 2217) 131 MG/DL BUN (test code = 2208) 13 MG/DL CREATININE (test code = 2214) 0.65 MG/DL eGFR AMER. (test code 113 ML/MIN/1.73 = 56809) eGFR NON- AMER. (test 97 ML/MIN/1.73 code = 72048) CALC BUN/CREAT (test code = 20 RATIO [...] code = 2219) 23 U/L COMPREHENSIVE METABOLIC [id number] 00:00:00 Test Item Value Reference Range Interpretation Comments GLUCOSE (test code = 2217) 131 MG/DL BUN (test code = 2208) 13 MG/DL CREATININE (test code = 2214) 0.65 MG/DL eGFR AMER. (test code 113 ML/MIN/1.73 = 05014) eGFR NON- AMER. (test 97 ML/MIN/1.73 code = 33935) CALC BUN/CREAT (test code = 20 RATIO [...] (test code = 2219) 23 U/L HEMOGLOBIN [id number] 00:00:00 Test Item Value Reference Range Interpretation Comments HEMOGLOBIN A1c (test code = 50934) 6.8 % HEMOGLOBIN [id number] 00:00:00 Test Item Value Reference Range Interpretation Comments HEMOGLOBIN A1c (test code = 84258) 6.8 % HEMOGLOBIN [id number] 00:00:00 Test Item Value Reference Range Interpretation Comments HEMOGLOBIN A1c (test code = 64263) 6.8 % LIPID [id number] 00:00:00 Test Item Value Reference Range Interpretation Comments CHOLESTEROL (test code = 2210) 303 MG/DL TRIGLYCERIDES (test code = 2232) 191 MG/DL HDL CHOLESTEROL (test code = 2220) 61 MG/DL CALC LDL CHOL (test code = 2237) 205 MG/DL RISK RATIO LDL/HDL (test code = 3.36 RATIO 2238) LIPID [id number] 00:00:00 Test Item Value Reference Range Interpretation Comments CHOLESTEROL (test code = 2210) 303 MG/DL TRIGLYCERIDES (test code = 2232) 191 MG/DL HDL CHOLESTEROL (test code = 2220) 61 MG/DL CALC LDL CHOL (test code = 2237) 205 MG/DL RISK RATIO LDL/HDL (test code = 3.36 RATIO 2238) [id number] 00:00:00 Test Item Value Reference Range Interpretation Comments TSH, THIRD GENERATION (test code 0.769 UIU/ML = 2821) [id number] 00:00:00 Test Item Value Reference Range Interpretation Comments TSH, THIRD GENERATION (test code 0.769 UIU/ML = 2821) [id number] 00:00:00 Test Item Value Reference Range Interpretation Comments TSH, THIRD GENERATION (test code 0.769 UIU/ML = 2821) COMPREHENSIVE METABOLIC [id number] 00:00:00 Test Item Value Reference Range Interpretation Comments GLUCOSE (test code = 2217) 131 MG/DL BUN (test code = 2208) 13 MG/DL CREATININE (test code = 2214) 0.65 MG/DL eGFR AMER. (test code 113 ML/MIN/1.73 = 57371) eGFR NON- AMER. (test 97 ML/MIN/1.73 code = 43695) CALC BUN/CREAT (test code = 20 RATIO [...] code = 2219) 23 U/L COMPREHENSIVE METABOLIC [id number] 00:00:00 Test Item Value Reference Range Interpretation Comments GLUCOSE (test code = 2217) 131 MG/DL BUN (test code = 2208) 13 MG/DL CREATININE (test code = 2214) 0.65 MG/DL eGFR AMER. (test code 113 ML/MIN/1.73 = 88939) eGFR NON- AMER. (test 97 ML/MIN/1.73 code = 07593) CALC BUN/CREAT (test code = 20 RATIO [...] (test code = 2219) 23 U/L HEMOGLOBIN [id number] 00:00:00 Test Item Value Reference Range Interpretation Comments HEMOGLOBIN A1c (test code = 21529) 6.8 % HEMOGLOBIN [id number] 00:00:00 Test Item Value Reference Range Interpretation Comments HEMOGLOBIN A1c (test code = 08250) 6.8 % LIPID [id number] 00:00:00 Test Item Value Reference Range Interpretation Comments CHOLESTEROL (test code = 2210) 303 MG/DL TRIGLYCERIDES (test code = 2232) 191 MG/DL HDL CHOLESTEROL (test code = 2220) 61 MG/DL CALC LDL CHOL (test code = 2237) 205 MG/DL RISK RATIO LDL/HDL (test code = 3.36 RATIO 2238) [id number] 00:00:00 Test Item Value Reference Range Interpretation Comments TSH, THIRD GENERATION (test code 0.769 UIU/ML = 2821) [id number] 00:00:00 Test Item Value Reference Range Interpretation Comments TSH, THIRD GENERATION (test code 0.769 UIU/ML = 2821) COMPREHENSIVE METABOLIC [id number] 00:00:00 Test Item Value Reference Range Interpretation Comments GLUCOSE (test code = 2217) 131 MG/DL BUN (test code = 2208) 13 MG/DL CREATININE (test code = 2214) 0.65 MG/DL eGFR AMER. (test code 113 ML/MIN/1.73 = 02932) eGFR NON- AMER. (test 97 ML/MIN/1.73 code = 93204) CALC BUN/CREAT (test code = 20 RATIO [...] (test code = 2219) 23 U/L HEMOGLOBIN [id number] 00:00:00 Test Item Value Reference Range Interpretation Comments HEMOGLOBIN A1c (test code = 27648) 6.8 % HEMOGLOBIN [id number] 00:00:00 Test Item Value Reference Range Interpretation Comments HEMOGLOBIN A1c (test code = 42329) 6.8 % HEMOGLOBIN [id number] 00:00:00 Test Item Value Reference Range Interpretation Comments HEMOGLOBIN A1c (test code = 78801) 6.8 % LIPID [id number] 00:00:00 Test Item Value Reference Range Interpretation Comments CHOLESTEROL (test code = 2210) 303 MG/DL TRIGLYCERIDES (test code = 2232) 191 MG/DL HDL CHOLESTEROL (test code = 2220) 61 MG/DL CALC LDL CHOL (test code = 2237) 205 MG/DL RISK RATIO LDL/HDL (test code = 3.36 RATIO 2238) LIPID [id number] 00:00:00 Test Item Value Reference Range Interpretation Comments CHOLESTEROL (test code = 2210) 303 MG/DL TRIGLYCERIDES (test code = 2232) 191 MG/DL HDL CHOLESTEROL (test code = 2220) 61 MG/DL CALC LDL CHOL (test code = 2237) 205 MG/DL RISK RATIO LDL/HDL (test code = 3.36 RATIO 2238) [id number] 00:00:00 Test Item Value Reference Range Interpretation Comments TSH, THIRD GENERATION (test code 0.769 UIU/ML = 2821) [id number] 00:00:00 Test Item Value Reference Range Interpretation Comments TSH, THIRD GENERATION (test code 0.769 UIU/ML = 2821) [id number] 00:00:00 Test Item Value Reference Range Interpretation Comments TSH, THIRD GENERATION (test code 0.769 UIU/ML = 2821) COMPREHENSIVE METABOLIC [id number] 00:00:00 Test Item Value Reference Range Interpretation Comments GLUCOSE (test code = 2217) 131 MG/DL BUN (test code = 2208) 13 MG/DL CREATININE (test code = 2214) 0.65 MG/DL eGFR AMER. (test code 113 ML/MIN/1.73 = 68247) eGFR NON- AMER. (test 97 ML/MIN/1.73 code = 59015) CALC BUN/CREAT (test code = 20 RATIO [...] code = 2219) 23 U/L COMPREHENSIVE METABOLIC [id number] 00:00:00 Test Item Value Reference Range Interpretation Comments GLUCOSE (test code = 2217) 131 MG/DL BUN (test code = 2208) 13 MG/DL CREATININE (test code = 2214) 0.65 MG/DL eGFR AMER. (test code 113 ML/MIN/1.73 = 62953) eGFR NON- AMER. (test 97 ML/MIN/1.73 code = 86395) CALC BUN/CREAT (test code = 20 RATIO [...] (test code = 2219) 23 U/L HEMOGLOBIN [id number] 00:00:00 Test Item Value Reference Range Interpretation Comments HEMOGLOBIN A1c (test code = 62195) 6.6 % HEMOGLOBIN [id number] 00:00:00 Test Item Value Reference Range Interpretation Comments HEMOGLOBIN A1c (test code = 31052) 6.6 % HEMOGLOBIN [id number] 00:00:00 Test Item Value Reference Range Interpretation Comments HEMOGLOBIN A1c (test code = 56192) 6.6 % LIPID [id number] 00:00:00 Test Item Value Reference Range Interpretation Comments CHOLESTEROL (test code = 2210) 261 MG/DL TRIGLYCERIDES (test code = 2232) 159 MG/DL HDL CHOLESTEROL (test code = 2220) 82 MG/DL CALC LDL CHOL (test code = 2237) 150 MG/DL RISK RATIO LDL/HDL (test code = 1.83 RATIO 2238) LIPID [id number] 00:00:00 Test Item Value Reference Range Interpretation Comments CHOLESTEROL (test code = 2210) 261 MG/DL TRIGLYCERIDES (test code = 2232) 159 MG/DL HDL CHOLESTEROL (test code = 2220) 82 MG/DL CALC LDL CHOL (test code = 2237) 150 MG/DL RISK RATIO LDL/HDL (test code = 1.83 RATIO 2238) COMPREHENSIVE METABOLIC [id number] 00:00:00 Test Item Value Reference Range Interpretation Comments GLUCOSE (test code = 2217) 144 MG/DL BUN (test code = 2208) 15 MG/DL CREATININE (test code = 2214) 0.85 MG/DL eGFR AMER. (test code 87 ML/MIN/1.73 = 29898) eGFR NON- AMER. (test 75 ML/MIN/1.73 code = 04105) CALC BUN/CREAT (test code = 18 RATIO [...] code = 2219) 50 U/L COMPREHENSIVE METABOLIC [id number] 00:00:00 Test Item Value Reference Range Interpretation Comments GLUCOSE (test code = 2217) 144 MG/DL BUN (test code = 2208) 15 MG/DL CREATININE (test code = 2214) 0.85 MG/DL eGFR AMER. (test code 87 ML/MIN/1.73 = 71997) eGFR NON- AMER. (test 75 ML/MIN/1.73 code = 45822) CALC BUN/CREAT (test code = 18 RATIO [...] THYROX. BIND. CAPAC. (test code 1.1 = 44939) T4 (THYROXINE) (test code = 4.3 UG/DL 2819) CORRECTED T4 (FTI) (test code = 3.9 UG/DL 2820) TSH, THIRD GENERATION (test 18.900 UIU/ML code = 2821) THYROID II PROFILE (T3U, T4, T7, TSH)2020-05-23 00:00:00 Test Item Value Reference Range Interpretation Comments T-UPTAKE (test code = 2817) 30.2 % THYROX. BIND. CAPAC. (test code 1.1 = 75826) T4 (THYROXINE) (test code = 4.3 UG/DL 2819) CORRECTED T4 (FTI) (test code = 3.9 UG/DL 2820) TSH, THIRD GENERATION (test 18.900 UIU/ML code = 2821) HEMOGLOBIN [id number] 00:00:00 Test Item Value Reference Range Interpretation Comments HEMOGLOBIN A1c (test code = 55976) 6.6 % HEMOGLOBIN [id number] 00:00:00 Test Item Value Reference Range Interpretation Comments HEMOGLOBIN A1c (test code = 28989) 6.6 % HEMOGLOBIN [id number] 00:00:00 Test Item Value Reference Range Interpretation Comments HEMOGLOBIN A1c (test code = 47659) 6.6 % LIPID [id number] 00:00:00 Test Item Value Reference Range Interpretation Comments CHOLESTEROL (test code = 2210) 261 MG/DL TRIGLYCERIDES (test code = 2232) 159 MG/DL HDL CHOLESTEROL (test code = 2220) 82 MG/DL CALC LDL CHOL (test code = 2237) 150 MG/DL RISK RATIO LDL/HDL (test code = 1.83 RATIO 2238) LIPID [id number] 00:00:00 Test Item Value Reference Range Interpretation Comments CHOLESTEROL (test code = 2210) 261 MG/DL TRIGLYCERIDES (test code = 2232) 159 MG/DL HDL CHOLESTEROL (test code = 2220) 82 MG/DL CALC LDL CHOL (test code = 2237) 150 MG/DL RISK RATIO LDL/HDL (test code = 1.83 RATIO 2238) COMPREHENSIVE METABOLIC [id number] 00:00:00 Test Item Value Reference Range Interpretation Comments GLUCOSE (test code = 2217) 144 MG/DL BUN (test code = 2208) 15 MG/DL CREATININE (test code = 2214) 0.85 MG/DL eGFR AMER. (test code 87 ML/MIN/1.73 = 45509) eGFR NON- AMER. (test 75 ML/MIN/1.73 code = 90279) CALC BUN/CREAT (test code = 18 RATIO [...] code = 2219) 50 U/L COMPREHENSIVE METABOLIC [id number] 00:00:00 Test Item Value Reference Range Interpretation Comments GLUCOSE (test code = 2217) 144 MG/DL BUN (test code = 2208) 15 MG/DL CREATININE (test code = 2214) 0.85 MG/DL eGFR AMER. (test code 87 ML/MIN/1.73 = 51999) eGFR NON- AMER. (test 75 ML/MIN/1.73 code = 53629) CALC BUN/CREAT (test code = 18 RATIO [...] 2218) 27 U/L ALT (test code = 221) 50 U/L THYROID II PROFILE (T3U, T4, T7, TSH)2020-05-23 00:00:00 Test Item Value Reference Range Interpretation Comments T-UPTAKE (test code = 2817) 30.2 % THYROX. BIND. CAPAC. (test code 1.1 = 72974) T4 (THYROXINE) (test code = 4.3 UG/DL 281) CORRECTED T4 (FTI) (test code = 3.9 UG/DL 2820) TSH, THIRD GENERATION (test 18.900 UIU/ML code = 2821) THYROID II PROFILE (T3U, T4, T7, TSH)2020-05-23 00:00:00 Test Item Value Reference Range Interpretation Comments T-UPTAKE (test code = 7) 30.2 % THYROX. BIND. CAPAC. (test code 1.1 = 77820) T4 (THYROXINE) (test code = 4.3 UG/DL 2819) CORRECTED T4 (FTI) (test code = 3.9 UG/DL 2820) TSH, THIRD GENERATION (test 18.900 UIU/ML code = 2821) HEMOGLOBIN [id number] 00:00:00 Test Item Value Reference Range Interpretation Comments HEMOGLOBIN A1c (test code = 97526) 6.6 % HEMOGLOBIN [id number] 00:00:00 Test Item Value Reference Range Interpretation Comments HEMOGLOBIN A1c (test code = 76607) 6.6 % LIPID [id number] 00:00:00 Test Item Value Reference Range Interpretation Comments CHOLESTEROL (test code = 2210) 261 MG/DL TRIGLYCERIDES (test code = 2232) 159 MG/DL HDL CHOLESTEROL (test code = 2220) 82 MG/DL CALC LDL CHOL (test code = 2237) 150 MG/DL RISK RATIO LDL/HDL (test code = 1.83 RATIO 2238) COMPREHENSIVE METABOLIC [id number] 00:00:00 Test Item Value Reference Range Interpretation Comments GLUCOSE (test code = 2217) 144 MG/DL BUN (test code = 2208) 15 MG/DL CREATININE (test code = 2214) 0.85 MG/DL eGFR AMER. (test code 87 ML/MIN/1.73 = 01812) eGFR NON- AMER. (test 75 ML/MIN/1.73 code = 98687) CALC BUN/CREAT (test code = 18 RATIO [...] THYROX. BIND. CAPAC. (test code 1.1 = 97559) T4 (THYROXINE) (test code = 4.3 UG/DL 2818) CORRECTED T4 (FTI) (test code = 3.9 UG/DL 2820) TSH, THIRD GENERATION (test 18.900 UIU/ML code = 2821) HEMOGLOBIN [id number] 00:00:00 Test Item Value Reference Range Interpretation Comments HEMOGLOBIN A1c (test code = 37657) 6.6 % HEMOGLOBIN [id number] 00:00:00 Test Item Value Reference Range Interpretation Comments HEMOGLOBIN A1c (test code = 01724) 6.6 % HEMOGLOBIN [id number] 00:00:00 Test Item Value Reference Range Interpretation Comments HEMOGLOBIN A1c (test code = 44911) 6.6 % LIPID [id number] 00:00:00 Test Item Value Reference Range Interpretation Comments CHOLESTEROL (test code = 2210) 261 MG/DL TRIGLYCERIDES (test code = 2232) 159 MG/DL HDL CHOLESTEROL (test code = 2220) 82 MG/DL CALC LDL CHOL (test code = 2237) 150 MG/DL RISK RATIO LDL/HDL (test code = 1.83 RATIO 2238) LIPID [id number] 00:00:00 Test Item Value Reference Range Interpretation Comments CHOLESTEROL (test code = 2210) 261 MG/DL TRIGLYCERIDES (test code = 2232) 159 MG/DL HDL CHOLESTEROL (test code = 2220) 82 MG/DL CALC LDL CHOL (test code = 2237) 150 MG/DL RISK RATIO LDL/HDL (test code = 1.83 RATIO 2238) COMPREHENSIVE METABOLIC [id number] 00:00:00 Test Item Value Reference Range Interpretation Comments GLUCOSE (test code = 2217) 144 MG/DL BUN (test code = 2208) 15 MG/DL CREATININE (test code = 2214) 0.85 MG/DL eGFR AMER. (test code 87 ML/MIN/1.73 = 49648) eGFR NON- AMER. (test 75 ML/MIN/1.73 code = 06517) CALC BUN/CREAT (test code = 18 RATIO [...] code = 2219) 50 U/L COMPREHENSIVE METABOLIC [id number] 00:00:00 Test Item Value Reference Range Interpretation Comments GLUCOSE (test code = 2217) 144 MG/DL BUN (test code = 2208) 15 MG/DL CREATININE (test code = 2214) 0.85 MG/DL eGFR AMER. (test code 87 ML/MIN/1.73 = 95812) eGFR NON- AMER. (test 75 ML/MIN/1.73 code = 08762) CALC BUN/CREAT (test code = 18 RATIO [...] THYROX. BIND. CAPAC. (test code 1.1 = 49403) T4 (THYROXINE) (test code = 4.3 UG/DL 2819) CORRECTED T4 (FTI) (test code = 3.9 UG/DL 2820) TSH, THIRD GENERATION (test 18.900 UIU/ML code = 2821) THYROID II PROFILE (T3U, T4, T7, TSH)2020-05-23 00:00:00 Test Item Value Reference Range Interpretation Comments T-UPTAKE (test code = 281) 30.2 % THYROX. BIND. CAPAC. (test code 1.1 = 16426) T4 (THYROXINE) (test code = 4.3 UG/DL 2819) CORRECTED T4 (FTI) (test code = 3.9 UG/DL 2820) TSH, THIRD GENERATION (test 18.900 UIU/ML code = 2821) HEMOGLOBIN [id number] 00:00:00 Test Item Value Reference Range Interpretation Comments HEMOGLOBIN A1c (test code = 89169) 6.7 % HEMOGLOBIN [id number] 00:00:00 Test Item Value Reference Range Interpretation Comments HEMOGLOBIN A1c (test code = 73879) 6.7 % HEMOGLOBIN [id number] 00:00:00 Test Item Value Reference Range Interpretation Comments HEMOGLOBIN A1c (test code = 54063) 6.7 % LIPID [id number] 00:00:00 Test Item Value Reference Range Interpretation Comments CHOLESTEROL (test code = 2210) 267 MG/DL TRIGLYCERIDES (test code = 2232) 137 MG/DL HDL CHOLESTEROL (test code = 2220) 48 MG/DL CALC LDL CHOL (test code = 2237) 192 MG/DL RISK RATIO LDL/HDL (test code = 4.00 RATIO 2238) LIPID [id number] 00:00:00 Test Item Value Reference Range Interpretation Comments CHOLESTEROL (test code = 2210) 267 MG/DL TRIGLYCERIDES (test code = 2232) 137 MG/DL HDL CHOLESTEROL (test code = 2220) 48 MG/DL CALC LDL CHOL (test code = 2237) 192 MG/DL RISK RATIO LDL/HDL (test code = 4.00 RATIO 2238) COMPREHENSIVE METABOLIC [id number] 00:00:00 Test Item Value Reference Range Interpretation Comments GLUCOSE (test code = 2217) 155 MG/DL BUN (test code = 2208) 14 MG/DL CREATININE (test code = 2214) 0.52 MG/DL eGFR AMER. (test code 122 ML/MIN/1.73 = 86071) eGFR NON- AMER. (test 105 ML/MIN/1.73 code = 85548) CALC BUN/CREAT (test code = 27 RATIO [...] code = 2219) 27 U/L COMPREHENSIVE METABOLIC [id number] 00:00:00 Test Item Value Reference Range Interpretation Comments GLUCOSE (test code = 2217) 155 MG/DL BUN (test code = 2208) 14 MG/DL CREATININE (test code = 2214) 0.52 MG/DL eGFR AMER. (test code 122 ML/MIN/1.73 = 44232) eGFR NON- AMER. (test 105 ML/MIN/1.73 code = 36713) CALC BUN/CREAT (test code = 27 RATIO [...] THYROX. BIND. CAPAC. (test code 1.0 = 52195) T4 (THYROXINE) (test code = 4.7 UG/DL 2819) CORRECTED T4 (FTI) (test code = 4.7 UG/DL 2820) TSH, THIRD GENERATION (test code 0.201 UIU/ML = 2821) THYROID II PROFILE (T3U, T4, T7, TSH)2019 00:00:00 Test Item Value Reference Range Interpretation Comments T-UPTAKE (test code = 2817) 33.1 % THYROX. BIND. CAPAC. (test code 1.0 = 45649) T4 (THYROXINE) (test code = 4.7 UG/DL 2819) CORRECTED T4 (FTI) (test code = 4.7 UG/DL 2820) TSH, THIRD GENERATION (test code 0.201 UIU/ML = 2821) HEMOGLOBIN [id number] 00:00:00 Test Item Value Reference Range Interpretation Comments HEMOGLOBIN A1c (test code = 49826) 6.7 % HEMOGLOBIN [id number] 00:00:00 Test Item Value Reference Range Interpretation Comments HEMOGLOBIN A1c (test code = 74127) 6.7 % HEMOGLOBIN [id number] 00:00:00 Test Item Value Reference Range Interpretation Comments HEMOGLOBIN A1c (test code = 20142) 6.7 % LIPID [id number] 00:00:00 Test Item Value Reference Range Interpretation Comments CHOLESTEROL (test code = 2210) 267 MG/DL TRIGLYCERIDES (test code = 2232) 137 MG/DL HDL CHOLESTEROL (test code = 2220) 48 MG/DL CALC LDL CHOL (test code = 2237) 192 MG/DL RISK RATIO LDL/HDL (test code = 4.00 RATIO 2238) LIPID [id number] 00:00:00 Test Item Value Reference Range Interpretation Comments CHOLESTEROL (test code = 2210) 267 MG/DL TRIGLYCERIDES (test code = 2232) 137 MG/DL HDL CHOLESTEROL (test code = 2220) 48 MG/DL CALC LDL CHOL (test code = 2237) 192 MG/DL RISK RATIO LDL/HDL (test code = 4.00 RATIO 2238) COMPREHENSIVE METABOLIC [id number] 00:00:00 Test Item Value Reference Range Interpretation Comments GLUCOSE (test code = 2217) 155 MG/DL BUN (test code = 2208) 14 MG/DL CREATININE (test code = 2214) 0.52 MG/DL eGFR AMER. (test code 122 ML/MIN/1.73 = 01519) eGFR NON- AMER. (test 105 ML/MIN/1.73 code = 45255) CALC BUN/CREAT (test code = 27 RATIO [...] code = 2219) 27 U/L COMPREHENSIVE METABOLIC [id number] 00:00:00 Test Item Value Reference Range Interpretation Comments GLUCOSE (test code = 2217) 155 MG/DL BUN (test code = 2208) 14 MG/DL CREATININE (test code = 2214) 0.52 MG/DL eGFR AMER. (test code 122 ML/MIN/1.73 = 99408) eGFR NON- AMER. (test 105 ML/MIN/1.73 code = 96239) CALC BUN/CREAT (test code = 27 RATIO [...] THYROX. BIND. CAPAC. (test code 1.0 = 21518) T4 (THYROXINE) (test code = 4.7 UG/DL 2819) CORRECTED T4 (FTI) (test code = 4.7 UG/DL 2820) TSH, THIRD GENERATION (test code 0.201 UIU/ML = 2821) THYROID II PROFILE (T3U, T4, T7, TSH)2019 00:00:00 Test Item Value Reference Range Interpretation Comments T-UPTAKE (test code = 2817) 33.1 % THYROX. BIND. CAPAC. (test code 1.0 = 02803) T4 (THYROXINE) (test code = 4.7 UG/DL 2819) CORRECTED T4 (FTI) (test code = 4.7 UG/DL 2820) TSH, THIRD GENERATION (test code 0.201 UIU/ML = 2821) HEMOGLOBIN [id number] 00:00:00 Test Item Value Reference Range Interpretation Comments HEMOGLOBIN A1c (test code = 69651) 6.7 % HEMOGLOBIN [id number] 00:00:00 Test Item Value Reference Range Interpretation Comments HEMOGLOBIN A1c (test code = 75320) 6.7 % LIPID [id number] 00:00:00 Test Item Value Reference Range Interpretation Comments CHOLESTEROL (test code = 2210) 267 MG/DL TRIGLYCERIDES (test code = 2232) 137 MG/DL HDL CHOLESTEROL (test code = 2220) 48 MG/DL CALC LDL CHOL (test code = 2237) 192 MG/DL RISK RATIO LDL/HDL (test code = 4.00 RATIO 2238) COMPREHENSIVE METABOLIC [id number] 00:00:00 Test Item Value Reference Range Interpretation Comments GLUCOSE (test code = 2217) 155 MG/DL BUN (test code = 2208) 14 MG/DL CREATININE (test code = 2214) 0.52 MG/DL eGFR AMER. (test code 122 ML/MIN/1.73 = 19179) eGFR NON- AMER. (test 105 ML/MIN/1.73 code = 93303) CALC BUN/CREAT (test code = 27 RATIO [...] THYROX. BIND. CAPAC. (test code 1.0 = 34639) T4 (THYROXINE) (test code = 4.7 UG/DL 2819) CORRECTED T4 (FTI) (test code = 4.7 UG/DL 2820) TSH, THIRD GENERATION (test code 0.201 UIU/ML = 2821) HEMOGLOBIN [id number] 00:00:00 Test Item Value Reference Range Interpretation Comments HEMOGLOBIN A1c (test code = 34696) 6.7 % HEMOGLOBIN [id number] 00:00:00 Test Item Value Reference Range Interpretation Comments HEMOGLOBIN A1c (test code = 32177) 6.7 % HEMOGLOBIN [id number] 00:00:00 Test Item Value Reference Range Interpretation Comments HEMOGLOBIN A1c (test code = 84320) 6.7 % LIPID [id number] 00:00:00 Test Item Value Reference Range Interpretation Comments CHOLESTEROL (test code = 2210) 267 MG/DL TRIGLYCERIDES (test code = 2232) 137 MG/DL HDL CHOLESTEROL (test code = 2220) 48 MG/DL CALC LDL CHOL (test code = 2237) 192 MG/DL RISK RATIO LDL/HDL (test code = 4.00 RATIO 2238) LIPID [id number] 00:00:00 Test Item Value Reference Range Interpretation Comments CHOLESTEROL (test code = 2210) 267 MG/DL TRIGLYCERIDES (test code = 2232) 137 MG/DL HDL CHOLESTEROL (test code = 2220) 48 MG/DL CALC LDL CHOL (test code = 2237) 192 MG/DL RISK RATIO LDL/HDL (test code = 4.00 RATIO 2238) COMPREHENSIVE METABOLIC [id number] 00:00:00 Test Item Value Reference Range Interpretation Comments GLUCOSE (test code = 2217) 155 MG/DL BUN (test code = 2208) 14 MG/DL CREATININE (test code = 2214) 0.52 MG/DL eGFR AMER. (test code 122 ML/MIN/1.73 = 33234) eGFR NON- AMER. (test 105 ML/MIN/1.73 code = 38601) CALC BUN/CREAT (test code = 27 RATIO [...] code = 2219) 27 U/L COMPREHENSIVE METABOLIC [id number] 00:00:00 Test Item Value Reference Range Interpretation Comments GLUCOSE (test code = 2217) 155 MG/DL BUN (test code = 2208) 14 MG/DL CREATININE (test code = 2214) 0.52 MG/DL eGFR AMER. (test code 122 ML/MIN/1.73 = 08894) eGFR NON- AMER. (test 105 ML/MIN/1.73 code = 02853) CALC BUN/CREAT (test code = 27 RATIO [...] THYROX. BIND. CAPAC. (test code 1.0 = 51619) T4 (THYROXINE) (test code = 4.7 UG/DL 2819) CORRECTED T4 (FTI) (test code = 4.7 UG/DL 2820) TSH, THIRD GENERATION (test code 0.201 UIU/ML = 2821) THYROID II PROFILE (T3U, T4, T7, TSH)2019 00:00:00 Test Item Value Reference Range Interpretation Comments T-UPTAKE (test code = 2817) 33.1 % THYROX. BIND. CAPAC. (test code 1.0 = 42556) T4 (THYROXINE) (test code = 4.7 UG/DL 2819) CORRECTED T4 (FTI) (test code = 4.7 UG/DL 2820) TSH, THIRD GENERATION (test code 0.201 UIU/ML = 2821) SARS-CoV-2 (COVID-19) by RT-PCR (HIGH RISK)2019-09-18 00:00:00 Test Item Value Reference Range Interpretation Comments SARS-CoV-2 INTERPRETATION (test NEGATIVE code = 90688) SOURCE (test code = 64536) NOT SPECIFIED SARS-CoV-2 (COVID-19) by RT-PCR (HIGH RISK)2019-09-18 00:00:00 Test Item Value Reference Range Interpretation Comments SARS-CoV-2 INTERPRETATION (test NEGATIVE code = 21755) SOURCE (test code = 56011) NOT SPECIFIED SARS-CoV-2 (COVID-19) by RT-PCR (HIGH RISK)2019-09-18 00:00:00 Test Item Value Reference Range Interpretation Comments SARS-CoV-2 INTERPRETATION (test NEGATIVE code = 40767) SOURCE (test code = 90003) NOT SPECIFIED SARS-CoV-2 (COVID-19) by RT-PCR (HIGH RISK)2019-09-18 00:00:00 Test Item Value Reference Range Interpretation Comments SARS-CoV-2 INTERPRETATION (test NEGATIVE code = 14980) SOURCE (test code = 07365) NOT SPECIFIED SARS-CoV-2 (COVID-19) by RT-PCR (HIGH RISK)2019-09-18 00:00:00 Test Item Value Reference Range Interpretation Comments SARS-CoV-2 INTERPRETATION (test NEGATIVE code = 75009) SOURCE (test code = 59851) NOT SPECIFIED SARS-CoV-2 (COVID-19) by RT-PCR (HIGH RISK)2019-09-18 00:00:00 Test Item Value Reference Range Interpretation Comments SARS-CoV-2 INTERPRETATION (test NEGATIVE code = 29205) SOURCE (test code = 96626) NOT SPECIFIED SARS-CoV-2 (COVID-19) by RT-PCR (HIGH RISK)2019-09-18 00:00:00 Test Item Value Reference Range Interpretation Comments SARS-CoV-2 INTERPRETATION (test NEGATIVE code = 79890) SOURCE (test code = 03811) NOT SPECIFIED [id number] 00:00:00 Test Item Value Reference Range Interpretation Comments TSH, THIRD GENERATION (test code 2.490 UIU/ML = 2821) [id number] 00:00:00 Test Item Value Reference Range Interpretation Comments TSH, THIRD GENERATION (test code 2.490 UIU/ML = 2821) [id number] 00:00:00 Test Item Value Reference Range Interpretation Comments TSH, THIRD GENERATION (test code 2.490 UIU/ML = 2821) HEMOGLOBIN [id number] 00:00:00 Test Item Value Reference Range Interpretation Comments HEMOGLOBIN A1c (test code = 05515) 6.4 % HEMOGLOBIN [id number] 00:00:00 Test Item Value Reference Range Interpretation Comments HEMOGLOBIN A1c (test code = 56902) 6.4 % HEMOGLOBIN [id number] 00:00:00 Test Item Value Reference Range Interpretation Comments HEMOGLOBIN A1c (test code = 64030) 6.4 % COMPREHENSIVE METABOLIC [id number] 00:00:00 Test Item Value Reference Range Interpretation Comments GLUCOSE (test code = 2217) 206 MG/DL BUN (test code = 2208) 23 MG/DL CREATININE (test code = 2214) 0.67 MG/DL eGFR AMER. (test code 112 ML/MIN/1.73 = 56239) eGFR NON- AMER. (test 97 ML/MIN/1.73 code = 98491) CALC BUN/CREAT (test code = 34 RATIO [...] code = 2219) 25 U/L COMPREHENSIVE METABOLIC [id number] 00:00:00 Test Item Value Reference Range Interpretation Comments GLUCOSE (test code = 2217) 206 MG/DL BUN (test code = 2208) 23 MG/DL CREATININE (test code = 2214) 0.67 MG/DL eGFR AMER. (test code 112 ML/MIN/1.73 = 60358) eGFR NON- AMER. (test 97 ML/MIN/1.73 code = 96163) CALC BUN/CREAT (test code = 34 RATIO [...] ALT (test code = 2219) 25 U/L [id number] 00:00:00 Test Item Value Reference Range Interpretation Comments TSH, THIRD GENERATION (test code 2.490 UIU/ML = 2821) [id number] 00:00:00 Test Item Value Reference Range Interpretation Comments TSH, THIRD GENERATION (test code 2.490 UIU/ML = 2821) [id number] 00:00:00 Test Item Value Reference Range Interpretation Comments TSH, THIRD GENERATION (test code 2.490 UIU/ML = 2821) HEMOGLOBIN [id number] 00:00:00 Test Item Value Reference Range Interpretation Comments HEMOGLOBIN A1c (test code = 73122) 6.4 % HEMOGLOBIN [id number] 00:00:00 Test Item Value Reference Range Interpretation Comments HEMOGLOBIN A1c (test code = 63069) 6.4 % HEMOGLOBIN [id number] 00:00:00 Test Item Value Reference Range Interpretation Comments HEMOGLOBIN A1c (test code = 61903) 6.4 % COMPREHENSIVE METABOLIC [id number] 00:00:00 Test Item Value Reference Range Interpretation Comments GLUCOSE (test code = 2217) 206 MG/DL BUN (test code = 2208) 23 MG/DL CREATININE (test code = 2214) 0.67 MG/DL eGFR AMER. (test code 112 ML/MIN/1.73 = 42368) eGFR NON- AMER. (test 97 ML/MIN/1.73 code = 64329) CALC BUN/CREAT (test code = 34 RATIO [...] code = 2219) 25 U/L COMPREHENSIVE METABOLIC [id number] 00:00:00 Test Item Value Reference Range Interpretation Comments GLUCOSE (test code = 2217) 206 MG/DL BUN (test code = 2208) 23 MG/DL CREATININE (test code = 2214) 0.67 MG/DL eGFR AMER. (test code 112 ML/MIN/1.73 = 74106) eGFR NON- AMER. (test 97 ML/MIN/1.73 code = 62807) CALC BUN/CREAT (test code = 34 RATIO [...] ALT (test code = 2219) 25 U/L [id number] 00:00:00 Test Item Value Reference Range Interpretation Comments TSH, THIRD GENERATION (test code 2.490 UIU/ML = 2821) [id number] 00:00:00 Test Item Value Reference Range Interpretation Comments TSH, THIRD GENERATION (test code 2.490 UIU/ML = 2821) HEMOGLOBIN [id number] 00:00:00 Test Item Value Reference Range Interpretation Comments HEMOGLOBIN A1c (test code = 47591) 6.4 % HEMOGLOBIN [id number] 00:00:00 Test Item Value Reference Range Interpretation Comments HEMOGLOBIN A1c (test code = 56826) 6.4 % COMPREHENSIVE METABOLIC [id number] 00:00:00 Test Item Value Reference Range Interpretation Comments GLUCOSE (test code = 2217) 206 MG/DL BUN (test code = 2208) 23 MG/DL CREATININE (test code = 2214) 0.67 MG/DL eGFR AMER. (test code 112 ML/MIN/1.73 = 47936) eGFR NON- AMER. (test 97 ML/MIN/1.73 code = 35385) CALC BUN/CREAT (test code = 34 RATIO [...] ALT (test code = 2219) 25 U/L [id number] 00:00:00 Test Item Value Reference Range Interpretation Comments TSH, THIRD GENERATION (test code 2.490 UIU/ML = 2821) [id number] 00:00:00 Test Item Value Reference Range Interpretation Comments TSH, THIRD GENERATION (test code 2.490 UIU/ML = 2821) [id number] 00:00:00 Test Item Value Reference Range Interpretation Comments TSH, THIRD GENERATION (test code 2.490 UIU/ML = 2821) HEMOGLOBIN [id number] 00:00:00 Test Item Value Reference Range Interpretation Comments HEMOGLOBIN A1c (test code = 06007) 6.4 % HEMOGLOBIN [id number] 00:00:00 Test Item Value Reference Range Interpretation Comments HEMOGLOBIN A1c (test code = 42242) 6.4 % HEMOGLOBIN [id number] 00:00:00 Test Item Value Reference Range Interpretation Comments HEMOGLOBIN A1c (test code = 72850) 6.4 % COMPREHENSIVE METABOLIC [id number] 00:00:00 Test Item Value Reference Range Interpretation Comments GLUCOSE (test code = 2217) 206 MG/DL BUN (test code = 2208) 23 MG/DL CREATININE (test code = 2214) 0.67 MG/DL eGFR AMER. (test code 112 ML/MIN/1.73 = 83778) eGFR NON- AMER. (test 97 ML/MIN/1.73 code = 06690) CALC BUN/CREAT (test code = 34 RATIO [...] code = 2219) 25 U/L COMPREHENSIVE METABOLIC [id number] 00:00:00 Test Item Value Reference Range Interpretation Comments GLUCOSE (test code = 2217) 206 MG/DL BUN (test code = 2208) 23 MG/DL CREATININE (test code = 2214) 0.67 MG/DL eGFR AMER. (test code 112 ML/MIN/1.73 = 98775) eGFR NON- AMER. (test 97 ML/MIN/1.73 code = 08400) CALC BUN/CREAT (test code = 34 RATIO [...] = 2219) 25 U/L VAGINAL PATHOGENS DNA [id number] 00:00:00 Test Item Value Reference Range Interpretation Comments MARK SPECIES (test code = 36894) NEGATIVE G. VAGINALIS (test code = 51575) NEGATIVE T. VAGINALIS (test code = 58591) NEGATIVE VAGINAL PATHOGENS DNA [id number] 00:00:00 Test Item Value Reference Range Interpretation Comments MARK SPECIES (test code = 22626) NEGATIVE G. VAGINALIS (test code = 61919) NEGATIVE T. VAGINALIS (test code = 55984) NEGATIVE VAGINAL PATHOGENS DNA [id number] 00:00:00 Test Item Value Reference Range Interpretation Comments MARK SPECIES (test code = 60999) NEGATIVE G. VAGINALIS (test code = 47286) NEGATIVE T. VAGINALIS (test code = 93758) NEGATIVE VAGINAL PATHOGENS DNA [id number] 00:00:00 Test Item Value Reference Range Interpretation Comments MARK SPECIES (test code = 47468) NEGATIVE G. VAGINALIS (test code = 12196) NEGATIVE T. VAGINALIS (test code = 65498) NEGATIVE VAGINAL PATHOGENS DNA [id number] 00:00:00 Test Item Value Reference Range Interpretation Comments MARK SPECIES (test code = 74197) NEGATIVE G. VAGINALIS (test code = 04349) NEGATIVE T. VAGINALIS (test code = 30737) NEGATIVE VAGINAL PATHOGENS DNA [id number] 00:00:00 Test Item Value Reference Range Interpretation Comments MARK SPECIES (test code = 91584) NEGATIVE G. VAGINALIS (test code = 73540) NEGATIVE T. VAGINALIS (test code = 48897) NEGATIVE VAGINAL PATHOGENS DNA [id number] 00:00:00 Test Item Value Reference Range Interpretation Comments MARK SPECIES (test code = ) NEGATIVE G. VAGINALIS (test code = ) NEGATIVE T. VAGINALIS (test code = ) NEGATIVE HEMOGLOBIN A1c [ADDED]2018-12-01 00:00:00 Test Item Value Reference Range Interpretation Comments HEMOGLOBIN A1c (test code = 23053) 6.7 % HEMOGLOBIN A1c [ADDED]2018-12-01 00:00:00 Test Item Value Reference Range Interpretation Comments HEMOGLOBIN A1c (test code = 66897) 6.7 % HEMOGLOBIN A1c [ADDED]2018-12-01 00:00:00 Test Item Value Reference Range Interpretation Comments HEMOGLOBIN A1c (test code = 68302) 6.7 % COMPREHENSIVE METABOLIC PANEL [ADDED]2018-12-01 00:00:00 Test Item Value Reference Range Interpretation Comments GLUCOSE (test code = 2217) 136 MG/DL BUN (test code = 2208) 15 MG/DL CREATININE (test code = 2214) 0.64 MG/DL eGFR AMER. (test code 115 ML/MIN/1.73 = 37760) eGFR NON- AMER. (test 99 ML/MIN/1.73 code = 29849) CALC BUN/CREAT (test code = 23 RATIO [...] eGFR AMER. (test code 115 ML/MIN/1.73 = 77749) eGFR NON- AMER. (test 99 ML/MIN/1.73 code = 63777) CALC BUN/CREAT (test code = 23 RATIO [...] Comments HEMOGLOBIN A1c (test code = 73410) 6.7 % HEMOGLOBIN A1c [ADDED]2018-12-01 00:00:00 Test Item Value Reference Range Interpretation Comments HEMOGLOBIN A1c (test code = 47298) 6.7 % HEMOGLOBIN A1c [ADDED]2018-12-01 00:00:00 Test Item Value Reference Range Interpretation Comments HEMOGLOBIN A1c (test code = 04070) 6.7 % COMPREHENSIVE METABOLIC PANEL [ADDED]2018-12-01 00:00:00 Test Item Value Reference Range Interpretation Comments GLUCOSE (test code = 2217) 136 MG/DL BUN (test code = 2208) 15 MG/DL CREATININE (test code = 2214) 0.64 MG/DL eGFR AMER. (test code 115 ML/MIN/1.73 = 23308) eGFR NON- AMER. (test 99 ML/MIN/1.73 code = 04454) CALC BUN/CREAT (test code = 23 RATIO [...] eGFR AMER. (test code 115 ML/MIN/1.73 = 91752) eGFR NON- AMER. (test 99 ML/MIN/1.73 code = 16624) CALC BUN/CREAT (test code = 23 RATIO [...] Interpretation Comments HEMOGLOBIN A1c (test code = 85369) 6.7 % HEMOGLOBIN A1c [ADDED]2018-12-01 00:00:00 Test Item Value Reference Range Interpretation Comments HEMOGLOBIN A1c (test code = 39845) 6.7 % COMPREHENSIVE METABOLIC PANEL [ADDED]2018-12-01 00:00:00 Test Item Value Reference Range Interpretation Comments GLUCOSE (test code = 2217) 136 MG/DL BUN (test code = 2208) 15 MG/DL CREATININE (test code = 2214) 0.64 MG/DL eGFR AMER. (test code 115 ML/MIN/1.73 = 96504) eGFR NON- AMER. (test 99 ML/MIN/1.73 code = 12293) CALC BUN/CREAT (test code = 23 RATIO [...] Interpretation Comments HEMOGLOBIN A1c (test code = 72855) 6.7 % HEMOGLOBIN A1c [ADDED]2018-12-01 00:00:00 Test Item Value Reference Range Interpretation Comments HEMOGLOBIN A1c (test code = 22791) 6.7 % HEMOGLOBIN A1c [ADDED]2018-12-01 00:00:00 Test Item Value Reference Range Interpretation Comments HEMOGLOBIN A1c (test code = 93078) 6.7 % COMPREHENSIVE METABOLIC PANEL [ADDED]2018-12-01 00:00:00 Test Item Value Reference Range Interpretation Comments GLUCOSE (test code = 2217) 136 MG/DL BUN (test code = 2208) 15 MG/DL CREATININE (test code = 2214) 0.64 MG/DL eGFR AMER. (test code 115 ML/MIN/1.73 = 08207) eGFR NON- AMER. (test 99 ML/MIN/1.73 code = 16629) CALC BUN/CREAT (test code = 23 RATIO [...] eGFR AMER. (test code 115 ML/MIN/1.73 = 52126) eGFR NON- AMER. (test 99 ML/MIN/1.73 code = 51854) CALC BUN/CREAT (test code = 23 RATIO [...] code 1.280 UIU/ML = 2821) CBC W/AUTO [id number] 00:00:00 Test Item Value Reference Range Interpretation [...] code = 1015) 346 K/UL CBC W/AUTO [id number] 00:00:00 Test Item Value Reference Range Interpretation [...] code = 1015) 346 K/UL CBC W/AUTO [id number] 00:00:00 Test Item Value Reference Range Interpretation [...] (test code = 1015) 346 K/UL HEMOGLOBIN [id number] 00:00:00 Test Item Value Reference Range Interpretation Comments HEMOGLOBIN A1c (test code = 57406) 5.9 % HEMOGLOBIN [id number] 00:00:00 Test Item Value Reference Range Interpretation Comments HEMOGLOBIN A1c (test code = 38244) 5.9 % HEMOGLOBIN [id number] 00:00:00 Test Item Value Reference Range Interpretation Comments HEMOGLOBIN A1c (test code = 77417) 5.9 % LIPID [id number] 00:00:00 Test Item Value Reference Range Interpretation Comments CHOLESTEROL (test code = 2210) 318 MG/DL TRIGLYCERIDES (test code = 2232) 263 MG/DL HDL CHOLESTEROL (test code = 2220) 51 MG/DL CALC LDL CHOL (test code = 2237) 214 MG/DL RISK RATIO LDL/HDL (test code = 4.20 RATIO 2238) LIPID [id number] 00:00:00 Test Item Value Reference Range Interpretation Comments CHOLESTEROL (test code = 2210) 318 MG/DL TRIGLYCERIDES (test code = 2232) 263 MG/DL HDL CHOLESTEROL (test code = 2220) 51 MG/DL CALC LDL CHOL (test code = 2237) 214 MG/DL RISK RATIO LDL/HDL (test code = 4.20 RATIO 2238) COMPREHENSIVE METABOLIC [id number] 00:00:00 Test Item Value Reference Range Interpretation Comments GLUCOSE (test code = 2217) 113 MG/DL BUN (test code = 2208) 18 MG/DL CREATININE (test code = 2214) 0.70 MG/DL eGFR AMER. (test code 111 ML/MIN/1.73 = 27570) eGFR NON- AMER. (test 96 ML/MIN/1.73 code = 06031) CALC BUN/CREAT (test code = 26 RATIO [...] code = 2219) 31 U/L COMPREHENSIVE METABOLIC [id number] 00:00:00 Test Item Value Reference Range Interpretation Comments GLUCOSE (test code = 2217) 113 MG/DL BUN (test code = 2208) 18 MG/DL CREATININE (test code = 2214) 0.70 MG/DL eGFR AMER. (test code 111 ML/MIN/1.73 = 41544) eGFR NON- AMER. (test 96 ML/MIN/1.73 code = 33928) CALC BUN/CREAT (test code = 26 RATIO [...] ALT (test code = 2219) 31 U/L [id number] 00:00:00 Test Item Value Reference Range Interpretation Comments TSH, THIRD GENERATION (test code 2.520 UIU/ML = 2821) [id number] 00:00:00 Test Item Value Reference Range Interpretation Comments TSH, THIRD GENERATION (test code 2.520 UIU/ML = 2821) [id number] 00:00:00 Test Item Value Reference Range Interpretation Comments TSH, THIRD GENERATION (test code 2.520 UIU/ML = 2821) CBC W/AUTO [id number] 00:00:00 Test Item Value Reference Range Interpretation [...] code = 1015) 346 K/UL CBC W/AUTO [id number] 00:00:00 Test Item Value Reference Range Interpretation [...] code = 1015) 346 K/UL CBC W/AUTO [id number] 00:00:00 Test Item Value Reference Range Interpretation [...] (test code = 1015) 346 K/UL HEMOGLOBIN [id number] 00:00:00 Test Item Value Reference Range Interpretation Comments HEMOGLOBIN A1c (test code = 20204) 5.9 % HEMOGLOBIN [id number] 00:00:00 Test Item Value Reference Range Interpretation Comments HEMOGLOBIN A1c (test code = 56941) 5.9 % HEMOGLOBIN [id number] 00:00:00 Test Item Value Reference Range Interpretation Comments HEMOGLOBIN A1c (test code = 91769) 5.9 % LIPID [id number] 00:00:00 Test Item Value Reference Range Interpretation Comments CHOLESTEROL (test code = 2210) 318 MG/DL TRIGLYCERIDES (test code = 2232) 263 MG/DL HDL CHOLESTEROL (test code = 2220) 51 MG/DL CALC LDL CHOL (test code = 2237) 214 MG/DL RISK RATIO LDL/HDL (test code = 4.20 RATIO 2238) LIPID [id number] 00:00:00 Test Item Value Reference Range Interpretation Comments CHOLESTEROL (test code = 2210) 318 MG/DL TRIGLYCERIDES (test code = 2232) 263 MG/DL HDL CHOLESTEROL (test code = 2220) 51 MG/DL CALC LDL CHOL (test code = 2237) 214 MG/DL RISK RATIO LDL/HDL (test code = 4.20 RATIO 2238) COMPREHENSIVE METABOLIC [id number] 00:00:00 Test Item Value Reference Range Interpretation Comments GLUCOSE (test code = 2217) 113 MG/DL BUN (test code = 2208) 18 MG/DL CREATININE (test code = 2214) 0.70 MG/DL eGFR AMER. (test code 111 ML/MIN/1.73 = 91157) eGFR NON- AMER. (test 96 ML/MIN/1.73 code = 46933) CALC BUN/CREAT (test code = 26 RATIO [...] code = 2219) 31 U/L COMPREHENSIVE METABOLIC [id number] 00:00:00 Test Item Value Reference Range Interpretation Comments GLUCOSE (test code = 2217) 113 MG/DL BUN (test code = 2208) 18 MG/DL CREATININE (test code = 2214) 0.70 MG/DL eGFR AMER. (test code 111 ML/MIN/1.73 = 26835) eGFR NON- AMER. (test 96 ML/MIN/1.73 code = 25121) CALC BUN/CREAT (test code = 26 RATIO [...] ALT (test code = 2219) 31 U/L [id number] 00:00:00 Test Item Value Reference Range Interpretation Comments TSH, THIRD GENERATION (test code 2.520 UIU/ML = 2821) [id number] 00:00:00 Test Item Value Reference Range Interpretation Comments TSH, THIRD GENERATION (test code 2.520 UIU/ML = 2821) [id number] 00:00:00 Test Item Value Reference Range Interpretation Comments TSH, THIRD GENERATION (test code 2.520 UIU/ML = 2821) CBC W/AUTO [id number] 00:00:00 Test Item Value Reference Range Interpretation [...] code = 1015) 346 K/UL CBC W/AUTO [id number] 00:00:00 Test Item Value Reference Range Interpretation [...] (test code = 1015) 346 K/UL HEMOGLOBIN [id number] 00:00:00 Test Item Value Reference Range Interpretation Comments HEMOGLOBIN A1c (test code = 00246) 5.9 % HEMOGLOBIN [id number] 00:00:00 Test Item Value Reference Range Interpretation Comments HEMOGLOBIN A1c (test code = 76421) 5.9 % LIPID [id number] 00:00:00 Test Item Value Reference Range Interpretation Comments CHOLESTEROL (test code = 2210) 318 MG/DL TRIGLYCERIDES (test code = 2232) 263 MG/DL HDL CHOLESTEROL (test code = 2220) 51 MG/DL CALC LDL CHOL (test code = 2237) 214 MG/DL RISK RATIO LDL/HDL (test code = 4.20 RATIO 2238) COMPREHENSIVE METABOLIC [id number] 00:00:00 Test Item Value Reference Range Interpretation Comments GLUCOSE (test code = 2217) 113 MG/DL BUN (test code = 2208) 18 MG/DL CREATININE (test code = 2214) 0.70 MG/DL eGFR AMER. (test code 111 ML/MIN/1.73 = 70899) eGFR NON- AMER. (test 96 ML/MIN/1.73 code = 21238) CALC BUN/CREAT (test code = 26 RATIO [...] ALT (test code = 2219) 31 U/L [id number] 00:00:00 Test Item Value Reference Range Interpretation Comments TSH, THIRD GENERATION (test code 2.520 UIU/ML = 2821) [id number] 00:00:00 Test Item Value Reference Range Interpretation Comments TSH, THIRD GENERATION (test code 2.520 UIU/ML = 2821) CBC W/AUTO [id number] 00:00:00 Test Item Value Reference Range Interpretation [...] code = 1015) 346 K/UL CBC W/AUTO [id number] 00:00:00 Test Item Value Reference Range Interpretation [...] code = 1015) 346 K/UL CBC W/AUTO [id number] 00:00:00 Test Item Value Reference Range Interpretation [...] (test code = 1015) 346 K/UL HEMOGLOBIN [id number] 00:00:00 Test Item Value Reference Range Interpretation Comments HEMOGLOBIN A1c (test code = 82051) 5.9 % HEMOGLOBIN [id number] 00:00:00 Test Item Value Reference Range Interpretation Comments HEMOGLOBIN A1c (test code = 33741) 5.9 % HEMOGLOBIN [id number] 00:00:00 Test Item Value Reference Range Interpretation Comments HEMOGLOBIN A1c (test code = 85365) 5.9 % LIPID [id number] 00:00:00 Test Item Value Reference Range Interpretation Comments CHOLESTEROL (test code = 2210) 318 MG/DL TRIGLYCERIDES (test code = 2232) 263 MG/DL HDL CHOLESTEROL (test code = 2220) 51 MG/DL CALC LDL CHOL (test code = 2237) 214 MG/DL RISK RATIO LDL/HDL (test code = 4.20 RATIO 2238) LIPID [id number] 00:00:00 Test Item Value Reference Range Interpretation Comments CHOLESTEROL (test code = 2210) 318 MG/DL TRIGLYCERIDES (test code = 2232) 263 MG/DL HDL CHOLESTEROL (test code = 2220) 51 MG/DL CALC LDL CHOL (test code = 2237) 214 MG/DL RISK RATIO LDL/HDL (test code = 4.20 RATIO 2238) COMPREHENSIVE METABOLIC [id number] 00:00:00 Test Item Value Reference Range Interpretation Comments GLUCOSE (test code = 2217) 113 MG/DL BUN (test code = 2208) 18 MG/DL CREATININE (test code = 2214) 0.70 MG/DL eGFR AMER. (test code 111 ML/MIN/1.73 = 29428) eGFR NON- AMER. (test 96 ML/MIN/1.73 code = 94330) CALC BUN/CREAT (test code = 26 RATIO [...] code = 2219) 31 U/L COMPREHENSIVE METABOLIC [id number] 00:00:00 Test Item Value Reference Range Interpretation Comments GLUCOSE (test code = 2217) 113 MG/DL BUN (test code = 2208) 18 MG/DL CREATININE (test code = 2214) 0.70 MG/DL eGFR AMER. (test code 111 ML/MIN/1.73 = 76725) eGFR NON- AMER. (test 96 ML/MIN/1.73 code = 91449) CALC BUN/CREAT (test code = 26 RATIO [...] ALT (test code = 2219) 31 U/L [id number] 00:00:00 Test Item Value Reference Range Interpretation Comments TSH, THIRD GENERATION (test code 2.520 UIU/ML = 2821) [id number] 00:00:00 Test Item Value Reference Range Interpretation Comments TSH, THIRD GENERATION (test code 2.520 UIU/ML = 2821) [id number] 00:00:00 Test Item Value Reference Range Interpretation Comments TSH, THIRD GENERATION (test code 2.520 UIU/ML = 2821) CULTURE, [id number] 00:00:00 Test Item Value Reference Range Interpretation Comments CULTURE, URINE (test SPECIMEN NUMBER: code = 25289) [id number] CULTURE, [id number] 00:00:00 Test Item Value Reference Range Interpretation Comments CULTURE, URINE (test SPECIMEN NUMBER: code = 82303) [id number] CULTURE, [id number] 00:00:00 Test Item Value Reference Range Interpretation Comments CULTURE, URINE (test SPECIMEN NUMBER: code = 67681) [id number] CULTURE, [id number] 00:00:00 Test Item Value Reference Range Interpretation Comments CULTURE, URINE (test SPECIMEN NUMBER: code = 81574) [id number] CULTURE, [id number] 00:00:00 Test Item Value Reference Range Interpretation Comments CULTURE, URINE (test SPECIMEN NUMBER: code = 79373) [id number] CULTURE, [id number] 00:00:00 Test Item Value Reference Range Interpretation Comments CULTURE, URINE (test SPECIMEN NUMBER: code = 43929) [id number] CULTURE, [id number] 00:00:00 Test Item Value Reference Range Interpretation Comments CULTURE, URINE (test SPECIMEN NUMBER: code = 18980) [id number] CULTURE, [id number] 00:00:00 Test Item Value Reference Range Interpretation Comments CULTURE, URINE (test SPECIMEN NUMBER: code = 08240) [id number] CULTURE, [id number] 00:00:00 Test Item Value Reference Range Interpretation Comments CULTURE, URINE (test SPECIMEN NUMBER: code = 17262) [id number] CULTURE, [id number] 00:00:00 Test Item Value Reference Range Interpretation Comments CULTURE, URINE (test SPECIMEN NUMBER: code = 64544) [id number] CULTURE, [id number] 00:00:00 Test Item Value Reference Range Interpretation Comments CULTURE, URINE (test SPECIMEN NUMBER: code = 32868) [id number] CULTURE, [id number] 00:00:00 Test Item Value Reference Range Interpretation Comments CULTURE, URINE (test SPECIMEN NUMBER: code = 35876) [id number] CULTURE, [id number] 00:00:00 Test Item Value Reference Range Interpretation Comments CULTURE, URINE (test SPECIMEN NUMBER: code = 58912) [id number] CULTURE, [id number] 00:00:00 Test Item Value Reference Range Interpretation Comments CULTURE, URINE (test SPECIMEN NUMBER: code = 74103) [id number] BASIC METABOLIC [id number] 00:00:00 Test Item Value Reference Range Interpretation Comments GLUCOSE (test code = 2217) 135 MG/DL BUN (test code = 2208) 25 MG/DL CREATININE (test code = 2214) 0.76 MG/DL eGFR AMER. (test code 101 ML/MIN/1.73 = 04853) eGFR NON- AMER. (test 87 ML/MIN/1.73 code = 22538) SODIUM (test code = 2231) 139 MEQ/L POTASSIUM (test code = 2228) 4.7 MEQ/L CHLORIDE (test code = 2215) 99 MEQ/L CARBON DIOXIDE (test code = 26 MEQ/L 2206) CALCIUM (test code = 2209) 9.4 MG/DL BASIC METABOLIC [id number] 00:00:00 Test Item Value Reference Range Interpretation Comments GLUCOSE (test code = 2217) 135 MG/DL BUN (test code = 2208) 25 MG/DL CREATININE (test code = 2214) 0.76 MG/DL eGFR AMER. (test code 101 ML/MIN/1.73 = 35170) eGFR NON- AMER. (test 87 ML/MIN/1.73 code = 55120) SODIUM (test code = 2231) 139 MEQ/L POTASSIUM (test code = 2228) 4.7 MEQ/L CHLORIDE (test code = 2215) 99 MEQ/L CARBON DIOXIDE (test code = 26 MEQ/L 2206) CALCIUM (test code = 2209) 9.4 MG/DL LIPID [id number] 00:00:00 Test Item Value Reference Range Interpretation Comments CHOLESTEROL (test code = 2210) 262 MG/DL TRIGLYCERIDES (test code = 2232) 300 MG/DL HDL CHOLESTEROL (test code = 2220) 36 MG/DL CALC LDL CHOL (test code = 2237) 166 MG/DL RISK RATIO LDL/HDL (test code = 4.61 RATIO 2238) LIPID [id number] 00:00:00 Test Item Value Reference Range Interpretation Comments CHOLESTEROL (test code = 2210) 262 MG/DL TRIGLYCERIDES (test code = 2232) 300 MG/DL HDL CHOLESTEROL (test code = 2220) 36 MG/DL CALC LDL CHOL (test code = 2237) 166 MG/DL RISK RATIO LDL/HDL (test code = 4.61 RATIO 2238) HEMOGLOBIN [id number] 00:00:00 Test Item Value Reference Range Interpretation Comments HEMOGLOBIN A1c (test code = 76556) 6.2 % HEMOGLOBIN [id number] 00:00:00 Test Item Value Reference Range Interpretation Comments HEMOGLOBIN A1c (test code = 27675) 6.2 % HEMOGLOBIN [id number] 00:00:00 Test Item Value Reference Range Interpretation Comments HEMOGLOBIN A1c (test code = 37008) 6.2 % [id number] 00:00:00 Test Item Value Reference Range Interpretation Comments TSH, THIRD GENERATION (test code 0.988 UIU/ML = 2821) [id number] 00:00:00 Test Item Value Reference Range Interpretation Comments TSH, THIRD GENERATION (test code 0.988 UIU/ML = 2821) [id number] 00:00:00 Test Item Value Reference Range Interpretation Comments TSH, THIRD GENERATION (test code 0.988 UIU/ML = 2821) BASIC METABOLIC [id number] 00:00:00 Test Item Value Reference Range Interpretation Comments GLUCOSE (test code = 2217) 135 MG/DL BUN (test code = 2208) 25 MG/DL CREATININE (test code = 2214) 0.76 MG/DL eGFR AMER. (test code 101 ML/MIN/1.73 = 33797) eGFR NON- AMER. (test 87 ML/MIN/1.73 code = 20920) SODIUM (test code = 2231) 139 MEQ/L POTASSIUM (test code = 2228) 4.7 MEQ/L CHLORIDE (test code = 2215) 99 MEQ/L CARBON DIOXIDE (test code = 26 MEQ/L 2206) CALCIUM (test code = 2209) 9.4 MG/DL BASIC METABOLIC [id number] 00:00:00 Test Item Value Reference Range Interpretation Comments GLUCOSE (test code = 2217) 135 MG/DL BUN (test code = 2208) 25 MG/DL CREATININE (test code = 2214) 0.76 MG/DL eGFR AMER. (test code 101 ML/MIN/1.73 = 85827) eGFR NON- AMER. (test 87 ML/MIN/1.73 code = 06198) SODIUM (test code = 2231) 139 MEQ/L POTASSIUM (test code = 2228) 4.7 MEQ/L CHLORIDE (test code = 2215) 99 MEQ/L CARBON DIOXIDE (test code = 26 MEQ/L 2206) CALCIUM (test code = 2209) 9.4 MG/DL LIPID [id number] 00:00:00 Test Item Value Reference Range Interpretation Comments CHOLESTEROL (test code = 2210) 262 MG/DL TRIGLYCERIDES (test code = 2232) 300 MG/DL HDL CHOLESTEROL (test code = 2220) 36 MG/DL CALC LDL CHOL (test code = 2237) 166 MG/DL RISK RATIO LDL/HDL (test code = 4.61 RATIO 2238) LIPID [id number] 00:00:00 Test Item Value Reference Range Interpretation Comments CHOLESTEROL (test code = 2210) 262 MG/DL TRIGLYCERIDES (test code = 2232) 300 MG/DL HDL CHOLESTEROL (test code = 2220) 36 MG/DL CALC LDL CHOL (test code = 2237) 166 MG/DL RISK RATIO LDL/HDL (test code = 4.61 RATIO 2238) HEMOGLOBIN [id number] 00:00:00 Test Item Value Reference Range Interpretation Comments HEMOGLOBIN A1c (test code = 44946) 6.2 % HEMOGLOBIN [id number] 00:00:00 Test Item Value Reference Range Interpretation Comments HEMOGLOBIN A1c (test code = 61204) 6.2 % HEMOGLOBIN [id number] 00:00:00 Test Item Value Reference Range Interpretation Comments HEMOGLOBIN A1c (test code = 14515) 6.2 % [id number] 00:00:00 Test Item Value Reference Range Interpretation Comments TSH, THIRD GENERATION (test code 0.988 UIU/ML = 2821) [id number] 00:00:00 Test Item Value Reference Range Interpretation Comments TSH, THIRD GENERATION (test code 0.988 UIU/ML = 2821) [id number] 00:00:00 Test Item Value Reference Range Interpretation Comments TSH, THIRD GENERATION (test code 0.988 UIU/ML = 2821) BASIC METABOLIC [id number] 00:00:00 Test Item Value Reference Range Interpretation Comments GLUCOSE (test code = 2217) 135 MG/DL BUN (test code = 2208) 25 MG/DL CREATININE (test code = 2214) 0.76 MG/DL eGFR AMER. (test code 101 ML/MIN/1.73 = 93739) eGFR NON- AMER. (test 87 ML/MIN/1.73 code = 85024) SODIUM (test code = 2231) 139 MEQ/L POTASSIUM (test code = 2228) 4.7 MEQ/L CHLORIDE (test code = 2215) 99 MEQ/L CARBON DIOXIDE (test code = 26 MEQ/L 2206) CALCIUM (test code = 2209) 9.4 MG/DL LIPID [id number] 00:00:00 Test Item Value Reference Range Interpretation Comments CHOLESTEROL (test code = 2210) 262 MG/DL TRIGLYCERIDES (test code = 2232) 300 MG/DL HDL CHOLESTEROL (test code = 2220) 36 MG/DL CALC LDL CHOL (test code = 2237) 166 MG/DL RISK RATIO LDL/HDL (test code = 4.61 RATIO 2238) HEMOGLOBIN [id number] 00:00:00 Test Item Value Reference Range Interpretation Comments HEMOGLOBIN A1c (test code = 91257) 6.2 % HEMOGLOBIN [id number] 00:00:00 Test Item Value Reference Range Interpretation Comments HEMOGLOBIN A1c (test code = 17188) 6.2 % [id number] 00:00:00 Test Item Value Reference Range Interpretation Comments TSH, THIRD GENERATION (test code 0.988 UIU/ML = 2821) [id number] 00:00:00 Test Item Value Reference Range Interpretation Comments TSH, THIRD GENERATION (test code 0.988 UIU/ML = 2821) BASIC METABOLIC [id number] 00:00:00 Test Item Value Reference Range Interpretation Comments GLUCOSE (test code = 2217) 135 MG/DL BUN (test code = 2208) 25 MG/DL CREATININE (test code = 2214) 0.76 MG/DL eGFR AMER. (test code 101 ML/MIN/1.73 = 40619) eGFR NON- AMER. (test 87 ML/MIN/1.73 code = 07940) SODIUM (test code = 2231) 139 MEQ/L POTASSIUM (test code = 2228) 4.7 MEQ/L CHLORIDE (test code = 2215) 99 MEQ/L CARBON DIOXIDE (test code = 26 MEQ/L 2206) CALCIUM (test code = 2209) 9.4 MG/DL BASIC METABOLIC [id number] 00:00:00 Test Item Value Reference Range Interpretation Comments GLUCOSE (test code = 2217) 135 MG/DL BUN (test code = 2208) 25 MG/DL CREATININE (test code = 2214) 0.76 MG/DL eGFR AMER. (test code 101 ML/MIN/1.73 = 00856) eGFR NON- AMER. (test 87 ML/MIN/1.73 code = 77625) SODIUM (test code = 2231) 139 MEQ/L POTASSIUM (test code = 2228) 4.7 MEQ/L CHLORIDE (test code = 2215) 99 MEQ/L CARBON DIOXIDE (test code = 26 MEQ/L 2206) CALCIUM (test code = 2209) 9.4 MG/DL LIPID [id number] 00:00:00 Test Item Value Reference Range Interpretation Comments CHOLESTEROL (test code = 2210) 262 MG/DL TRIGLYCERIDES (test code = 2232) 300 MG/DL HDL CHOLESTEROL (test code = 2220) 36 MG/DL CALC LDL CHOL (test code = 2237) 166 MG/DL RISK RATIO LDL/HDL (test code = 4.61 RATIO 2238) LIPID [id number] 00:00:00 Test Item Value Reference Range Interpretation Comments CHOLESTEROL (test code = 2210) 262 MG/DL TRIGLYCERIDES (test code = 2232) 300 MG/DL HDL CHOLESTEROL (test code = 2220) 36 MG/DL CALC LDL CHOL (test code = 2237) 166 MG/DL RISK RATIO LDL/HDL (test code = 4.61 RATIO 2238) HEMOGLOBIN [id number] 00:00:00 Test Item Value Reference Range Interpretation Comments HEMOGLOBIN A1c (test code = 95325) 6.2 % HEMOGLOBIN [id number] 00:00:00 Test Item Value Reference Range Interpretation Comments HEMOGLOBIN A1c (test code = 99017) 6.2 % HEMOGLOBIN [id number] 00:00:00 Test Item Value Reference Range Interpretation Comments HEMOGLOBIN A1c (test code = 99318) 6.2 % [id number] 00:00:00 Test Item Value Reference Range Interpretation Comments TSH, THIRD GENERATION (test code 0.988 UIU/ML = 2821) [id number] 00:00:00 Test Item Value Reference Range Interpretation Comments TSH, THIRD GENERATION (test code 0.988 UIU/ML = 2821) [id number] 00:00:00 Test Item Value Reference Range Interpretation Comments TSH, THIRD GENERATION (test code 0.988 UIU/ML = 2821) COMPREHENSIVE METABOLIC [id number] 00:00:00 Test Item Value Reference Range Interpretation Comments GLUCOSE (test code = 2217) 109 MG/DL BUN (test code = 2208) 25 MG/DL CREATININE (test code = 2214) 0.78 MG/DL eGFR AMER. (test code 98 ML/MIN/1.73 = 50091) eGFR NON- AMER. (test 84 ML/MIN/1.73 code = 51037) CALC BUN/CREAT (test code = 32 RATIO [...] code = 2219) 25 U/L COMPREHENSIVE METABOLIC [id number] 00:00:00 Test Item Value Reference Range Interpretation Comments GLUCOSE (test code = 2217) 109 MG/DL BUN (test code = 2208) 25 MG/DL CREATININE (test code = 2214) 0.78 MG/DL eGFR AMER. (test code 98 ML/MIN/1.73 = 22547) eGFR NON- AMER. (test 84 ML/MIN/1.73 code = 34155) CALC BUN/CREAT (test code = 32 RATIO [...] (test code = 2219) 25 U/L LIPID [id number] 00:00:00 Test Item Value Reference Range Interpretation Comments CHOLESTEROL (test code = 2210) 295 MG/DL TRIGLYCERIDES (test code = 2232) 218 MG/DL HDL CHOLESTEROL (test code = 2220) 46 MG/DL CALC LDL CHOL (test code = 2237) 205 MG/DL RISK RATIO LDL/HDL (test code = 4.47 RATIO 2238) LIPID [id number] 00:00:00 Test Item Value Reference Range Interpretation Comments CHOLESTEROL (test code = 2210) 295 MG/DL TRIGLYCERIDES (test code = 2232) 218 MG/DL HDL CHOLESTEROL (test code = 2220) 46 MG/DL CALC LDL CHOL (test code = 2237) 205 MG/DL RISK RATIO LDL/HDL (test code = 4.47 RATIO 2238) HEMOGLOBIN [id number] 00:00:00 Test Item Value Reference Range Interpretation Comments HEMOGLOBIN A1c (test code = 34787) 7.0 % HEMOGLOBIN [id number] 00:00:00 Test Item Value Reference Range Interpretation Comments HEMOGLOBIN A1c (test code = 26964) 7.0 % HEMOGLOBIN [id number] 00:00:00 Test Item Value Reference Range Interpretation Comments HEMOGLOBIN A1c (test code = 42209) 7.0 % [id number] 00:00:00 Test Item Value Reference Range Interpretation Comments TSH, THIRD GENERATION (test code 0.565 UIU/ML = 2821) [id number] 00:00:00 Test Item Value Reference Range Interpretation Comments TSH, THIRD GENERATION (test code 0.565 UIU/ML = 2821) [id number] 00:00:00 Test Item Value Reference Range Interpretation Comments TSH, THIRD GENERATION (test code 0.565 UIU/ML = 2821) COMPREHENSIVE METABOLIC [id number] 00:00:00 Test Item Value Reference Range Interpretation Comments GLUCOSE (test code = 2217) 109 MG/DL BUN (test code = 2208) 25 MG/DL CREATININE (test code = 2214) 0.78 MG/DL eGFR AMER. (test code 98 ML/MIN/1.73 = 38809) eGFR NON- AMER. (test 84 ML/MIN/1.73 code = 30799) CALC BUN/CREAT (test code = 32 RATIO [...] code = 2219) 25 U/L COMPREHENSIVE METABOLIC [id number] 00:00:00 Test Item Value Reference Range Interpretation Comments GLUCOSE (test code = 2217) 109 MG/DL BUN (test code = 2208) 25 MG/DL CREATININE (test code = 2214) 0.78 MG/DL eGFR AMER. (test code 98 ML/MIN/1.73 = 54320) eGFR NON- AMER. (test 84 ML/MIN/1.73 code = 91930) CALC BUN/CREAT (test code = 32 RATIO [...] (test code = 2219) 25 U/L LIPID [id number] 00:00:00 Test Item Value Reference Range Interpretation Comments CHOLESTEROL (test code = 2210) 295 MG/DL TRIGLYCERIDES (test code = 2232) 218 MG/DL HDL CHOLESTEROL (test code = 2220) 46 MG/DL CALC LDL CHOL (test code = 2237) 205 MG/DL RISK RATIO LDL/HDL (test code = 4.47 RATIO 2238) LIPID [id number] 00:00:00 Test Item Value Reference Range Interpretation Comments CHOLESTEROL (test code = 2210) 295 MG/DL TRIGLYCERIDES (test code = 2232) 218 MG/DL HDL CHOLESTEROL (test code = 2220) 46 MG/DL CALC LDL CHOL (test code = 2237) 205 MG/DL RISK RATIO LDL/HDL (test code = 4.47 RATIO 2238) HEMOGLOBIN [id number] 00:00:00 Test Item Value Reference Range Interpretation Comments HEMOGLOBIN A1c (test code = 21528) 7.0 % HEMOGLOBIN [id number] 00:00:00 Test Item Value Reference Range Interpretation Comments HEMOGLOBIN A1c (test code = 31475) 7.0 % HEMOGLOBIN [id number] 00:00:00 Test Item Value Reference Range Interpretation Comments HEMOGLOBIN A1c (test code = 94559) 7.0 % [id number] 00:00:00 Test Item Value Reference Range Interpretation Comments TSH, THIRD GENERATION (test code 0.565 UIU/ML = 2821) [id number] 00:00:00 Test Item Value Reference Range Interpretation Comments TSH, THIRD GENERATION (test code 0.565 UIU/ML = 2821) [id number] 00:00:00 Test Item Value Reference Range Interpretation Comments TSH, THIRD GENERATION (test code 0.565 UIU/ML = 2821) COMPREHENSIVE METABOLIC [id number] 00:00:00 Test Item Value Reference Range Interpretation Comments GLUCOSE (test code = 2217) 109 MG/DL BUN (test code = 2208) 25 MG/DL CREATININE (test code = 2214) 0.78 MG/DL eGFR AMER. (test code 98 ML/MIN/1.73 = 83413) eGFR NON- AMER. (test 84 ML/MIN/1.73 code = 56972) CALC BUN/CREAT (test code = 32 RATIO [...] (test code = 2219) 25 U/L LIPID [id number] 00:00:00 Test Item Value Reference Range Interpretation Comments CHOLESTEROL (test code = 2210) 295 MG/DL TRIGLYCERIDES (test code = 2232) 218 MG/DL HDL CHOLESTEROL (test code = 2220) 46 MG/DL CALC LDL CHOL (test code = 2237) 205 MG/DL RISK RATIO LDL/HDL (test code = 4.47 RATIO 2238) HEMOGLOBIN [id number] 00:00:00 Test Item Value Reference Range Interpretation Comments HEMOGLOBIN A1c (test code = 20747) 7.0 % HEMOGLOBIN [id number] 00:00:00 Test Item Value Reference Range Interpretation Comments HEMOGLOBIN A1c (test code = 32097) 7.0 % [id number] 00:00:00 Test Item Value Reference Range Interpretation Comments TSH, THIRD GENERATION (test code 0.565 UIU/ML = 2821) [id number] 00:00:00 Test Item Value Reference Range Interpretation Comments TSH, THIRD GENERATION (test code 0.565 UIU/ML = 2821) COMPREHENSIVE METABOLIC [id number] 00:00:00 Test Item Value Reference Range Interpretation Comments GLUCOSE (test code = 2217) 109 MG/DL BUN (test code = 2208) 25 MG/DL CREATININE (test code = 2214) 0.78 MG/DL eGFR AMER. (test code 98 ML/MIN/1.73 = 57614) eGFR NON- AMER. (test 84 ML/MIN/1.73 code = 44733) CALC BUN/CREAT (test code = 32 RATIO [...] code = 2219) 25 U/L COMPREHENSIVE METABOLIC [id number] 00:00:00 Test Item Value Reference Range Interpretation Comments GLUCOSE (test code = 2217) 109 MG/DL BUN (test code = 2208) 25 MG/DL CREATININE (test code = 2214) 0.78 MG/DL eGFR AMER. (test code 98 ML/MIN/1.73 = 02934) eGFR NON- AMER. (test 84 ML/MIN/1.73 code = 89030) CALC BUN/CREAT (test code = 32 RATIO [...] (test code = 2219) 25 U/L LIPID [id number] 00:00:00 Test Item Value Reference Range Interpretation Comments CHOLESTEROL (test code = 2210) 295 MG/DL TRIGLYCERIDES (test code = 2232) 218 MG/DL HDL CHOLESTEROL (test code = 2220) 46 MG/DL CALC LDL CHOL (test code = 2237) 205 MG/DL RISK RATIO LDL/HDL (test code = 4.47 RATIO 2238) LIPID [id number] 00:00:00 Test Item Value Reference Range Interpretation Comments CHOLESTEROL (test code = 2210) 295 MG/DL TRIGLYCERIDES (test code = 2232) 218 MG/DL HDL CHOLESTEROL (test code = 2220) 46 MG/DL CALC LDL CHOL (test code = 2237) 205 MG/DL RISK RATIO LDL/HDL (test code = 4.47 RATIO 2238) HEMOGLOBIN [id number] 00:00:00 Test Item Value Reference Range Interpretation Comments HEMOGLOBIN A1c (test code = 46814) 7.0 % HEMOGLOBIN [id number] 00:00:00 Test Item Value Reference Range Interpretation Comments HEMOGLOBIN A1c (test code = 95665) 7.0 % HEMOGLOBIN [id number] 00:00:00 Test Item Value Reference Range Interpretation Comments HEMOGLOBIN A1c (test code = 29055) 7.0 % [id number] 00:00:00 Test Item Value Reference Range Interpretation Comments TSH, THIRD GENERATION (test code 0.565 UIU/ML = 2821) [id number] 00:00:00 Test Item Value Reference Range Interpretation Comments TSH, THIRD GENERATION (test code 0.565 UIU/ML = 2821) [id number] 00:00:00 Test Item Value Reference Range Interpretation Comments TSH, THIRD GENERATION (test code 0.565 UIU/ML = 2821) [id number] 00:00:00 Test Item Value Reference Range Interpretation Comments TSH, THIRD GENERATION (test code 0.379 UIU/ML = 2821) [id number] 00:00:00 Test Item Value Reference Range Interpretation Comments TSH, THIRD GENERATION (test code 0.379 UIU/ML = 2821) [id number] 00:00:00 Test Item Value Reference Range Interpretation Comments TSH, THIRD GENERATION (test code 0.379 UIU/ML = 2821) [id number] 00:00:00 Test Item Value Reference Range Interpretation Comments TSH, THIRD GENERATION (test code 0.379 UIU/ML = 2821) [id number] 00:00:00 Test Item Value Reference Range Interpretation Comments TSH, THIRD GENERATION (test code 0.379 UIU/ML = 2821) [id number] 00:00:00 Test Item Value Reference Range Interpretation Comments TSH, THIRD GENERATION (test code 0.379 UIU/ML = 2821) [id number] 00:00:00 Test Item Value Reference Range Interpretation Comments TSH, THIRD GENERATION (test code 0.379 UIU/ML = 2821) [id number] 00:00:00 Test Item Value Reference Range Interpretation Comments TSH, THIRD GENERATION (test code 0.379 UIU/ML = 2821) [id number] 00:00:00 Test Item Value Reference Range Interpretation Comments TSH, THIRD GENERATION (test code 0.379 UIU/ML = 2821) [id number] 00:00:00 Test Item Value Reference Range Interpretation Comments TSH, THIRD GENERATION (test code 0.379 UIU/ML = 2821) [id number] 00:00:00 Test Item Value Reference Range Interpretation Comments TSH, THIRD GENERATION (test code 0.379 UIU/ML = 2821) CULTURE, [id number] 00:00:00 Test Item Value Reference Range Interpretation Comments CULTURE, URINE (test SPECIMEN NUMBER: code = 47437) [id number] CULTURE, [id number] 00:00:00 Test Item Value Reference Range Interpretation Comments CULTURE, URINE (test SPECIMEN NUMBER: code = 35979) [id number] CULTURE, [id number] 00:00:00 Test Item Value Reference Range Interpretation Comments CULTURE, URINE (test SPECIMEN NUMBER: code = 16513) [id number] CULTURE, [id number] 00:00:00 Test Item Value Reference Range Interpretation Comments CULTURE, URINE (test SPECIMEN NUMBER: code = 64917) [id number] CULTURE, [id number] 00:00:00 Test Item Value Reference Range Interpretation Comments CULTURE, URINE (test SPECIMEN NUMBER: code = 27595) [id number] CULTURE, [id number] 00:00:00 Test Item Value Reference Range Interpretation Comments CULTURE, URINE (test SPECIMEN NUMBER: code = 23187) [id number] CULTURE, [id number] 00:00:00 Test Item Value Reference Range Interpretation Comments CULTURE, URINE (test SPECIMEN NUMBER: code = 54943) [id number] COMPREHENSIVE METABOLIC [id number] 00:00:00 Test Item Value Reference Range Interpretation Comments GLUCOSE (test code = 2217) 128 MG/DL BUN (test code = 2208) 26 MG/DL CREATININE (test code = 2214) 0.92 MG/DL eGFR AMER. (test code 81 ML/MIN/1.73 = 57334) eGFR NON- AMER. (test 70 ML/MIN/1.73 code = 82719) CALC BUN/CREAT (test code = 28 RATIO [...] code = 2219) 29 U/L COMPREHENSIVE METABOLIC [id number] 00:00:00 Test Item Value Reference Range Interpretation Comments GLUCOSE (test code = 2217) 128 MG/DL BUN (test code = 2208) 26 MG/DL CREATININE (test code = 2214) 0.92 MG/DL eGFR AMER. (test code 81 ML/MIN/1.73 = 65856) eGFR NON- AMER. (test 70 ML/MIN/1.73 code = 67972) CALC BUN/CREAT (test code = 28 RATIO [...] code = 2219) 29 U/L ACUTE HEPATITIS [id number] 00:00:00 Test Item Value Reference Range Interpretation Comments HEPATITIS A IgM (test code = NON-REACTIVE 73032) HEPATITIS B CORE IgM (test code NON-REACTIVE = 0261) HEPATITIS B SURF AG (test code = NON-REACTIVE 2739) HEPATITIS C ANTIBODY (test code NON-REACTIVE = 4675) INTERPRETATION HEPATITIS A: (NOTE) (test code = 2552) INTERPRETATION HEPATITIS B: (NOTE) (test code = 36805) INTERPRETATION HEPATITIS C: (NOTE) (test code = 54088) ACUTE HEPATITIS [id number] 00:00:00 Test Item Value Reference Range Interpretation Comments HEPATITIS A IgM (test code = NON-REACTIVE 08690) HEPATITIS B CORE IgM (test code NON-REACTIVE = 4644) HEPATITIS B SURF AG (test code = NON-REACTIVE 2739) HEPATITIS C ANTIBODY (test code NON-REACTIVE = 4675) INTERPRETATION HEPATITIS A: (NOTE) (test code = 2552) INTERPRETATION HEPATITIS B: (NOTE) (test code = 94238) INTERPRETATION HEPATITIS C: (NOTE) (test code = 52504) [id number] 00:00:00 Test Item Value Reference Range Interpretation Comments AMYLASE (test code = 2205) 32 U/L [id number] 00:00:00 Test Item Value Reference Range Interpretation Comments AMYLASE (test code = 2205) 32 U/L [id number] 00:00:00 Test Item Value Reference Range Interpretation Comments LIPASE (test code = 2058) 22 U/L [id number] 00:00:00 Test Item Value Reference Range Interpretation Comments LIPASE (test code = 2058) 22 U/L [id number] 00:00:00 Test Item Value Reference Range Interpretation Comments LIPASE (test code = 2058) 22 U/L COMPREHENSIVE METABOLIC [id number] 00:00:00 Test Item Value Reference Range Interpretation Comments GLUCOSE (test code = 2217) 128 MG/DL BUN (test code = 2208) 26 MG/DL CREATININE (test code = 2214) 0.92 MG/DL eGFR AMER. (test code 81 ML/MIN/1.73 = 58315) eGFR NON- AMER. (test 70 ML/MIN/1.73 code = 97662) CALC BUN/CREAT (test code = 28 RATIO [...] code = 2219) 29 U/L COMPREHENSIVE METABOLIC [id number] 00:00:00 Test Item Value Reference Range Interpretation Comments GLUCOSE (test code = 2217) 128 MG/DL BUN (test code = 2208) 26 MG/DL CREATININE (test code = 2214) 0.92 MG/DL eGFR AMER. (test code 81 ML/MIN/1.73 = 88583) eGFR NON- AMER. (test 70 ML/MIN/1.73 code = 13255) CALC BUN/CREAT (test code = 28 RATIO [...] code = 2219) 29 U/L ACUTE HEPATITIS [id number] 00:00:00 Test Item Value Reference Range Interpretation Comments HEPATITIS A IgM (test code = NON-REACTIVE 69015) HEPATITIS B CORE IgM (test code NON-REACTIVE = 6445) HEPATITIS B SURF AG (test code = NON-REACTIVE 2466) HEPATITIS C ANTIBODY (test code NON-REACTIVE = 8976) INTERPRETATION HEPATITIS A: (NOTE) (test code = 2552) INTERPRETATION HEPATITIS B: (NOTE) (test code = 86030) INTERPRETATION HEPATITIS C: (NOTE) (test code = 78113) ACUTE HEPATITIS [id number] 00:00:00 Test Item Value Reference Range Interpretation Comments HEPATITIS A IgM (test code = NON-REACTIVE 11719) HEPATITIS B CORE IgM (test code NON-REACTIVE = 4644) HEPATITIS B SURF AG (test code = NON-REACTIVE 5639) HEPATITIS C ANTIBODY (test code NON-REACTIVE = 4675) INTERPRETATION HEPATITIS A: (NOTE) (test code = 2552) INTERPRETATION HEPATITIS B: (NOTE) (test code = 91558) INTERPRETATION HEPATITIS C: (NOTE) (test code = 53829) [id number] 00:00:00 Test Item Value Reference Range Interpretation Comments AMYLASE (test code = 2205) 32 U/L [id number] 00:00:00 Test Item Value Reference Range Interpretation Comments AMYLASE (test code = 2205) 32 U/L [id number] 00:00:00 Test Item Value Reference Range Interpretation Comments LIPASE (test code = 2058) 22 U/L [id number] 00:00:00 Test Item Value Reference Range Interpretation Comments LIPASE (test code = 2058) 22 U/L [id number] 00:00:00 Test Item Value Reference Range Interpretation Comments LIPASE (test code = 2058) 22 U/L COMPREHENSIVE METABOLIC [id number] 00:00:00 Test Item Value Reference Range Interpretation Comments GLUCOSE (test code = 2217) 128 MG/DL BUN (test code = 2208) 26 MG/DL CREATININE (test code = 2214) 0.92 MG/DL eGFR AMER. (test code 81 ML/MIN/1.73 = 51111) eGFR NON- AMER. (test 70 ML/MIN/1.73 code = 37517) CALC BUN/CREAT (test code = 28 RATIO [...] code = 2219) 29 U/L ACUTE HEPATITIS [id number] 00:00:00 Test Item Value Reference Range Interpretation Comments HEPATITIS A IgM (test code = NON-REACTIVE 67891) HEPATITIS B CORE IgM (test code NON-REACTIVE = 4661) HEPATITIS B SURF AG (test code = NON-REACTIVE 2100) HEPATITIS C ANTIBODY (test code NON-REACTIVE = 4664) INTERPRETATION HEPATITIS A: (NOTE) (test code = 2552) INTERPRETATION HEPATITIS B: (NOTE) (test code = 13286) INTERPRETATION HEPATITIS C: (NOTE) (test code = 21601) [id number] 00:00:00 Test Item Value Reference Range Interpretation Comments AMYLASE (test code = 2205) 32 U/L [id number] 00:00:00 Test Item Value Reference Range Interpretation Comments LIPASE (test code = 2058) 22 U/L [id number] 00:00:00 Test Item Value Reference Range Interpretation Comments LIPASE (test code = 2058) 22 U/L COMPREHENSIVE METABOLIC [id number] 00:00:00 Test Item Value Reference Range Interpretation Comments GLUCOSE (test code = 2217) 128 MG/DL BUN (test code = 2208) 26 MG/DL CREATININE (test code = 2214) 0.92 MG/DL eGFR AMER. (test code 81 ML/MIN/1.73 = 54689) eGFR NON- AMER. (test 70 ML/MIN/1.73 code = 56542) CALC BUN/CREAT (test code = 28 RATIO [...] code = 2219) 29 U/L COMPREHENSIVE METABOLIC [id number] 00:00:00 Test Item Value Reference Range Interpretation Comments GLUCOSE (test code = 2217) 128 MG/DL BUN (test code = 2208) 26 MG/DL CREATININE (test code = 2214) 0.92 MG/DL eGFR AMER. (test code 81 ML/MIN/1.73 = 95242) eGFR NON- AMER. (test 70 ML/MIN/1.73 code = 04870) CALC BUN/CREAT (test code = 28 RATIO [...] code = 2219) 29 U/L ACUTE HEPATITIS [id number] 00:00:00 Test Item Value Reference Range Interpretation Comments HEPATITIS A IgM (test code = NON-REACTIVE 56651) HEPATITIS B CORE IgM (test code NON-REACTIVE = 9932) HEPATITIS B SURF AG (test code = NON-REACTIVE 1713) HEPATITIS C ANTIBODY (test code NON-REACTIVE = 4109) INTERPRETATION HEPATITIS A: (NOTE) (test code = 2552) INTERPRETATION HEPATITIS B: (NOTE) (test code = 01883) INTERPRETATION HEPATITIS C: (NOTE) (test code = 06864) ACUTE HEPATITIS [id number] 00:00:00 Test Item Value Reference Range Interpretation Comments HEPATITIS A IgM (test code = NON-REACTIVE 64418) HEPATITIS B CORE IgM (test code NON-REACTIVE = 4644) HEPATITIS B SURF AG (test code = NON-REACTIVE 9849) HEPATITIS C ANTIBODY (test code NON-REACTIVE = 4675) INTERPRETATION HEPATITIS A: (NOTE) (test code = 2552) INTERPRETATION HEPATITIS B: (NOTE) (test code = 39806) INTERPRETATION HEPATITIS C: (NOTE) (test code = 29972) [id number] 00:00:00 Test Item Value Reference Range Interpretation Comments AMYLASE (test code = 2205) 32 U/L [id number] 00:00:00 Test Item Value Reference Range Interpretation Comments AMYLASE (test code = 2205) 32 U/L [id number] 00:00:00 Test Item Value Reference Range Interpretation Comments LIPASE (test code = 2058) 22 U/L [id number] 00:00:00 Test Item Value Reference Range Interpretation Comments LIPASE (test code = 2058) 22 U/L [id number] 00:00:00 Test Item Value Reference Range Interpretation Comments LIPASE (test code = 2058) 22 U/L [id number] 00:00:00 Test Item Value Reference Range Interpretation Comments TSH, THIRD GENERATION (test code 4.890 UIU/ML = 2821) [id number] 00:00:00 Test Item Value Reference Range Interpretation Comments TSH, THIRD GENERATION (test code 4.890 UIU/ML = 2821) [id number] 00:00:00 Test Item Value Reference Range Interpretation Comments TSH, THIRD GENERATION (test code 4.890 UIU/ML = 2821) COMPREHENSIVE METABOLIC [id number] 00:00:00 Test Item Value Reference Range Interpretation Comments GLUCOSE (test code = 2217) 121 MG/DL BUN (test code = 2208) 40 MG/DL CREATININE (test code = 2214) 1.48 MG/DL eGFR AMER. (test code 45 ML/MIN/1.73 = 53859) eGFR NON- AMER. (test 39 ML/MIN/1.73 code = 15387) CALC BUN/CREAT (test code = 27 RATIO [...] code = 2219) 20 U/L COMPREHENSIVE METABOLIC [id number] 00:00:00 Test Item Value Reference Range Interpretation Comments GLUCOSE (test code = 2217) 121 MG/DL BUN (test code = 2208) 40 MG/DL CREATININE (test code = 2214) 1.48 MG/DL eGFR AMER. (test code 45 ML/MIN/1.73 = 46114) eGFR NON- AMER. (test 39 ML/MIN/1.73 code = 66813) CALC BUN/CREAT (test code = 27 RATIO [...] ALT (test code = 2219) 20 U/L [id number] 00:00:00 Test Item Value Reference Range Interpretation Comments TSH, THIRD GENERATION (test code 4.890 UIU/ML = 2821) [id number] 00:00:00 Test Item Value Reference Range Interpretation Comments TSH, THIRD GENERATION (test code 4.890 UIU/ML = 2821) [id number] 00:00:00 Test Item Value Reference Range Interpretation Comments TSH, THIRD GENERATION (test code 4.890 UIU/ML = 2821) COMPREHENSIVE METABOLIC [id number] 00:00:00 Test Item Value Reference Range Interpretation Comments GLUCOSE (test code = 2217) 121 MG/DL BUN (test code = 2208) 40 MG/DL CREATININE (test code = 2214) 1.48 MG/DL eGFR AMER. (test code 45 ML/MIN/1.73 = 19464) eGFR NON- AMER. (test 39 ML/MIN/1.73 code = 58498) CALC BUN/CREAT (test code = 27 RATIO [...] code = 2219) 20 U/L COMPREHENSIVE METABOLIC [id number] 00:00:00 Test Item Value Reference Range Interpretation Comments GLUCOSE (test code = 2217) 121 MG/DL BUN (test code = 2208) 40 MG/DL CREATININE (test code = 2214) 1.48 MG/DL eGFR AMER. (test code 45 ML/MIN/1.73 = 50861) eGFR NON- AMER. (test 39 ML/MIN/1.73 code = 86896) CALC BUN/CREAT (test code = 27 RATIO [...] ALT (test code = 2219) 20 U/L [id number] 00:00:00 Test Item Value Reference Range Interpretation Comments TSH, THIRD GENERATION (test code 4.890 UIU/ML = 2821) [id number] 00:00:00 Test Item Value Reference Range Interpretation Comments TSH, THIRD GENERATION (test code 4.890 UIU/ML = 2821) COMPREHENSIVE METABOLIC [id number] 00:00:00 Test Item Value Reference Range Interpretation Comments GLUCOSE (test code = 2217) 121 MG/DL BUN (test code = 2208) 40 MG/DL CREATININE (test code = 2214) 1.48 MG/DL eGFR AMER. (test code 45 ML/MIN/1.73 = 85893) eGFR NON- AMER. (test 39 ML/MIN/1.73 code = 49050) CALC BUN/CREAT (test code = 27 RATIO [...] ALT (test code = 2219) 20 U/L [id number] 00:00:00 Test Item Value Reference Range Interpretation Comments TSH, THIRD GENERATION (test code 4.890 UIU/ML = 2821) [id number] 00:00:00 Test Item Value Reference Range Interpretation Comments TSH, THIRD GENERATION (test code 4.890 UIU/ML = 2821) [id number] 00:00:00 Test Item Value Reference Range Interpretation Comments TSH, THIRD GENERATION (test code 4.890 UIU/ML = 2821) COMPREHENSIVE METABOLIC [id number] 00:00:00 Test Item Value Reference Range Interpretation Comments GLUCOSE (test code = 2217) 121 MG/DL BUN (test code = 2208) 40 MG/DL CREATININE (test code = 2214) 1.48 MG/DL eGFR AMER. (test code 45 ML/MIN/1.73 = 89039) eGFR NON- AMER. (test 39 ML/MIN/1.73 code = 91168) CALC BUN/CREAT (test code = 27 RATIO [...] code = 2219) 20 U/L COMPREHENSIVE METABOLIC [id number] 00:00:00 Test Item Value Reference Range Interpretation Comments GLUCOSE (test code = 2217) 121 MG/DL BUN (test code = 2208) 40 MG/DL CREATININE (test code = 2214) 1.48 MG/DL eGFR AMER. (test code 45 ML/MIN/1.73 = 42538) eGFR NON- AMER. (test 39 ML/MIN/1.73 code = 55759) CALC BUN/CREAT (test code = 27 RATIO [...] (test code = 2219) 20 U/L LIPID [id number] 00:00:00 Test Item Value Reference Range Interpretation Comments CHOLESTEROL (test code = 2210) 261 MG/DL TRIGLYCERIDES (test code = 2232) 165 MG/DL HDL CHOLESTEROL (test code = 2220) 58 MG/DL CALC LDL CHOL (test code = 2237) 170 MG/DL RISK RATIO LDL/HDL (test code = 2.93 RATIO 2238) LIPID [id number] 00:00:00 Test Item Value Reference Range Interpretation Comments CHOLESTEROL (test code = 2210) 261 MG/DL TRIGLYCERIDES (test code = 2232) 165 MG/DL HDL CHOLESTEROL (test code = 2220) 58 MG/DL CALC LDL CHOL (test code = 2237) 170 MG/DL RISK RATIO LDL/HDL (test code = 2.93 RATIO 2238) CBC W/AUTO [id number] 00:00:00 Test Item Value Reference Range Interpretation [...] code = 1015) 378 K/UL CBC W/AUTO [id number] 00:00:00 Test Item Value Reference Range Interpretation [...] code = 1015) 378 K/UL CBC W/AUTO [id number] 00:00:00 Test Item Value Reference Range Interpretation [...] (test code = 1015) 378 K/UL HEMOGLOBIN [id number] 00:00:00 Test Item Value Reference Range Interpretation Comments HEMOGLOBIN A1c (test code = 04839) 6.4 % HEMOGLOBIN [id number] 00:00:00 Test Item Value Reference Range Interpretation Comments HEMOGLOBIN A1c (test code = 75609) 6.4 % HEMOGLOBIN [id number] 00:00:00 Test Item Value Reference Range Interpretation Comments HEMOGLOBIN A1c (test code = 05407) 6.4 % [id number] 00:00:00 Test Item Value Reference Range Interpretation Comments TSH (test code = 2821) 5.290 UIU/ML [id number] 00:00:00 Test Item Value Reference Range Interpretation Comments TSH (test code = 2821) 5.290 UIU/ML [id number] 00:00:00 Test Item Value Reference Range Interpretation Comments TSH (test code = 2821) 5.290 UIU/ML LIPID [id number] 00:00:00 Test Item Value Reference Range Interpretation Comments CHOLESTEROL (test code = 2210) 261 MG/DL TRIGLYCERIDES (test code = 2232) 165 MG/DL HDL CHOLESTEROL (test code = 2220) 58 MG/DL CALC LDL CHOL (test code = 2237) 170 MG/DL RISK RATIO LDL/HDL (test code = 2.93 RATIO 2238) LIPID [id number] 00:00:00 Test Item Value Reference Range Interpretation Comments CHOLESTEROL (test code = 2210) 261 MG/DL TRIGLYCERIDES (test code = 2232) 165 MG/DL HDL CHOLESTEROL (test code = 2220) 58 MG/DL CALC LDL CHOL (test code = 2237) 170 MG/DL RISK RATIO LDL/HDL (test code = 2.93 RATIO 2238) CBC W/AUTO [id number] 00:00:00 Test Item Value Reference Range Interpretation [...] code = 1015) 378 K/UL CBC W/AUTO [id number] 00:00:00 Test Item Value Reference Range Interpretation [...] code = 1015) 378 K/UL CBC W/AUTO [id number] 00:00:00 Test Item Value Reference Range Interpretation [...] (test code = 1015) 378 K/UL HEMOGLOBIN [id number] 00:00:00 Test Item Value Reference Range Interpretation Comments HEMOGLOBIN A1c (test code = 84474) 6.4 % HEMOGLOBIN [id number] 00:00:00 Test Item Value Reference Range Interpretation Comments HEMOGLOBIN A1c (test code = 73965) 6.4 % HEMOGLOBIN [id number] 00:00:00 Test Item Value Reference Range Interpretation Comments HEMOGLOBIN A1c (test code = 23298) 6.4 % [id number] 00:00:00 Test Item Value Reference Range Interpretation Comments TSH (test code = 2821) 5.290 UIU/ML [id number] 00:00:00 Test Item Value Reference Range Interpretation Comments TSH (test code = 2821) 5.290 UIU/ML [id number] 00:00:00 Test Item Value Reference Range Interpretation Comments TSH (test code = 2821) 5.290 UIU/ML LIPID [id number] 00:00:00 Test Item Value Reference Range Interpretation Comments CHOLESTEROL (test code = 2210) 261 MG/DL TRIGLYCERIDES (test code = 2232) 165 MG/DL HDL CHOLESTEROL (test code = 2220) 58 MG/DL CALC LDL CHOL (test code = 2237) 170 MG/DL RISK RATIO LDL/HDL (test code = 2.93 RATIO 2238) CBC W/AUTO [id number] 00:00:00 Test Item Value Reference Range Interpretation [...] code = 1015) 378 K/UL CBC W/AUTO [id number] 00:00:00 Test Item Value Reference Range Interpretation [...] (test code = 1015) 378 K/UL HEMOGLOBIN [id number] 00:00:00 Test Item Value Reference Range Interpretation Comments HEMOGLOBIN A1c (test code = 81885) 6.4 % HEMOGLOBIN [id number] 00:00:00 Test Item Value Reference Range Interpretation Comments HEMOGLOBIN A1c (test code = 63316) 6.4 % [id number] 00:00:00 Test Item Value Reference Range Interpretation Comments TSH (test code = 2821) 5.290 UIU/ML [id number] 00:00:00 Test Item Value Reference Range Interpretation Comments TSH (test code = 2821) 5.290 UIU/ML LIPID [id number] 00:00:00 Test Item Value Reference Range Interpretation Comments CHOLESTEROL (test code = 2210) 261 MG/DL TRIGLYCERIDES (test code = 2232) 165 MG/DL HDL CHOLESTEROL (test code = 2220) 58 MG/DL CALC LDL CHOL (test code = 2237) 170 MG/DL RISK RATIO LDL/HDL (test code = 2.93 RATIO 2238) LIPID [id number] 00:00:00 Test Item Value Reference Range Interpretation Comments CHOLESTEROL (test code = 2210) 261 MG/DL TRIGLYCERIDES (test code = 2232) 165 MG/DL HDL CHOLESTEROL (test code = 2220) 58 MG/DL CALC LDL CHOL (test code = 2237) 170 MG/DL RISK RATIO LDL/HDL (test code = 2.93 RATIO 2238) CBC W/AUTO [id number] 00:00:00 Test Item Value Reference Range Interpretation [...] code = 1015) 378 K/UL CBC W/AUTO [id number] 00:00:00 Test Item Value Reference Range Interpretation [...] code = 1015) 378 K/UL CBC W/AUTO [id number] 00:00:00 Test Item Value Reference Range Interpretation [...] (test code = 1015) 378 K/UL HEMOGLOBIN [id number] 00:00:00 Test Item Value Reference Range Interpretation Comments HEMOGLOBIN A1c (test code = 55726) 6.4 % HEMOGLOBIN [id number] 00:00:00 Test Item Value Reference Range Interpretation Comments HEMOGLOBIN A1c (test code = 56153) 6.4 % HEMOGLOBIN [id number] 00:00:00 Test Item Value Reference Range Interpretation Comments HEMOGLOBIN A1c (test code = 50922) 6.4 % [id number] 00:00:00 Test Item Value Reference Range Interpretation Comments TSH (test code = 2821) 5.290 UIU/ML [id number] 00:00:00 Test Item Value Reference Range Interpretation Comments TSH (test code = 2821) 5.290 UIU/ML [id number] 00:00:00 Test Item Value Reference Range Interpretation [...] code = 2821) 1.030 UIU/ML COMPREHENSIVE METABOLIC [id number] 00:00:00 Test Item Value Reference Range Interpretation Comments GLUCOSE (test code = 2217) 106 MG/DL BUN (test code = 2208) 23 MG/DL CREATININE (test code = 2214) 0.66 MG/DL eGFR AMER. (test code 114 ML/MIN/1.73 = 00976) eGFR NON- AMER. (test 99 ML/MIN/1.73 code = 17237) CALC BUN/CREAT (test code = 35 RATIO [...] code = 2219) 31 U/L COMPREHENSIVE METABOLIC [id number] 00:00:00 Test Item Value Reference Range Interpretation Comments GLUCOSE (test code = 2217) 106 MG/DL BUN (test code = 2208) 23 MG/DL CREATININE (test code = 2214) 0.66 MG/DL eGFR AMER. (test code 114 ML/MIN/1.73 = 10099) eGFR NON- AMER. (test 99 ML/MIN/1.73 code = 09137) CALC BUN/CREAT (test code = 35 RATIO [...] code = 2821) 0.335 UIU/ML COMPREHENSIVE METABOLIC [id number] 00:00:00 Test Item Value Reference Range Interpretation Comments GLUCOSE (test code = 2217) 106 MG/DL BUN (test code = 2208) 23 MG/DL CREATININE (test code = 2214) 0.66 MG/DL eGFR AMER. (test code 114 ML/MIN/1.73 = 88748) eGFR NON- AMER. (test 99 ML/MIN/1.73 code = 60141) CALC BUN/CREAT (test code = 35 RATIO [...] code = 2219) 31 U/L COMPREHENSIVE METABOLIC [id number] 00:00:00 Test Item Value Reference Range Interpretation Comments GLUCOSE (test code = 2217) 106 MG/DL BUN (test code = 2208) 23 MG/DL CREATININE (test code = 2214) 0.66 MG/DL eGFR AMER. (test code 114 ML/MIN/1.73 = 66303) eGFR NON- AMER. (test 99 ML/MIN/1.73 code = 58024) CALC BUN/CREAT (test code = 35 RATIO [...] code = 2821) 0.335 UIU/ML COMPREHENSIVE METABOLIC [id number] 00:00:00 Test Item Value Reference Range Interpretation Comments GLUCOSE (test code = 2217) 106 MG/DL BUN (test code = 2208) 23 MG/DL CREATININE (test code = 2214) 0.66 MG/DL eGFR AMER. (test code 114 ML/MIN/1.73 = 90325) eGFR NON- AMER. (test 99 ML/MIN/1.73 code = 68846) CALC BUN/CREAT (test code = 35 RATIO [...] code = 2821) 0.335 UIU/ML COMPREHENSIVE METABOLIC [id number] 00:00:00 Test Item Value Reference Range Interpretation Comments GLUCOSE (test code = 2217) 106 MG/DL BUN (test code = 2208) 23 MG/DL CREATININE (test code = 2214) 0.66 MG/DL eGFR AMER. (test code 114 ML/MIN/1.73 = 03162) eGFR NON- AMER. (test 99 ML/MIN/1.73 code = 77423) CALC BUN/CREAT (test code = 35 RATIO [...] code = 2219) 31 U/L COMPREHENSIVE METABOLIC [id number] 00:00:00 Test Item Value Reference Range Interpretation Comments GLUCOSE (test code = 2217) 106 MG/DL BUN (test code = 2208) 23 MG/DL CREATININE (test code = 2214) 0.66 MG/DL eGFR AMER. (test code 114 ML/MIN/1.73 = 04340) eGFR NON- AMER. (test 99 ML/MIN/1.73 code = 05141) CALC BUN/CREAT (test code = 35 RATIO [...] Interpretation Comments T3 UPTAKE (test code = 5567) 31.6 % T4 (THYROXINE) (test code = [...] code = 2821) 0.335 UIU/ML COMPREHENSIVE METABOLIC [id number] 00:00:00 Test Item Value Reference Range Interpretation Comments GLUCOSE (test code = 2217) 103 MG/DL BUN (test code = 2208) 15 MG/DL CREATININE (test code = 2214) 0.77 MG/DL eGFR AMER. (test code 101 ML/MIN/1.73 = 84482) eGFR NON- AMER. (test 87 ML/MIN/1.73 code = 89561) CALC BUN/CREAT (test code = 19 RATIO [...] code = 2219) 24 U/L COMPREHENSIVE METABOLIC [id number] 00:00:00 Test Item Value Reference Range Interpretation Comments GLUCOSE (test code = 2217) 103 MG/DL BUN (test code = 2208) 15 MG/DL CREATININE (test code = 2214) 0.77 MG/DL eGFR AMER. (test code 101 ML/MIN/1.73 = 05676) eGFR NON- AMER. (test 87 ML/MIN/1.73 code = 46257) CALC BUN/CREAT (test code = 19 RATIO [...] code = 2821) 0.424 UIU/ML COMPREHENSIVE METABOLIC [id number] 00:00:00 Test Item Value Reference Range Interpretation Comments GLUCOSE (test code = 2217) 103 MG/DL BUN (test code = 2208) 15 MG/DL CREATININE (test code = 2214) 0.77 MG/DL eGFR AMER. (test code 101 ML/MIN/1.73 = 16624) eGFR NON- AMER. (test 87 ML/MIN/1.73 code = 21123) CALC BUN/CREAT (test code = 19 RATIO [...] code = 2219) 24 U/L COMPREHENSIVE METABOLIC [id number] 00:00:00 Test Item Value Reference Range Interpretation Comments GLUCOSE (test code = 2217) 103 MG/DL BUN (test code = 2208) 15 MG/DL CREATININE (test code = 2214) 0.77 MG/DL eGFR AMER. (test code 101 ML/MIN/1.73 = 99035) eGFR NON- AMER. (test 87 ML/MIN/1.73 code = 52292) CALC BUN/CREAT (test code = 19 RATIO [...] code = 2821) 0.424 UIU/ML COMPREHENSIVE METABOLIC [id number] 00:00:00 Test Item Value Reference Range Interpretation Comments GLUCOSE (test code = 2217) 103 MG/DL BUN (test code = 2208) 15 MG/DL CREATININE (test code = 2214) 0.77 MG/DL eGFR AMER. (test code 101 ML/MIN/1.73 = 80412) eGFR NON- AMER. (test 87 ML/MIN/1.73 code = 47385) CALC BUN/CREAT (test code = 19 RATIO [...] code = 2821) 0.424 UIU/ML COMPREHENSIVE METABOLIC [id number] 00:00:00 Test Item Value Reference Range Interpretation Comments GLUCOSE (test code = 2217) 103 MG/DL BUN (test code = 2208) 15 MG/DL CREATININE (test code = 2214) 0.77 MG/DL eGFR AMER. (test code 101 ML/MIN/1.73 = 91831) eGFR NON- AMER. (test 87 ML/MIN/1.73 code = 83184) CALC BUN/CREAT (test code = 19 RATIO [...] code = 2219) 24 U/L COMPREHENSIVE METABOLIC [id number] 00:00:00 Test Item Value Reference Range Interpretation Comments GLUCOSE (test code = 2217) 103 MG/DL BUN (test code = 2208) 15 MG/DL CREATININE (test code = 2214) 0.77 MG/DL eGFR AMER. (test code 101 ML/MIN/1.73 = 08899) eGFR NON- AMER. (test 87 ML/MIN/1.73 code = 40161) CALC BUN/CREAT (test code = 19 RATIO [...] (test code = 2821) 0.424 UIU/ML CULTURE, [id number] 00:00:00 Test Item Value Reference Range Interpretation Comments CULTURE, URINE (test SPECIMEN NUMBER: code = 95370) [id number] CULTURE, [id number] 00:00:00 Test Item Value Reference Range Interpretation Comments CULTURE, URINE (test SPECIMEN NUMBER: code = 72417) [id number] CULTURE, [id number] 00:00:00 Test Item Value Reference Range Interpretation Comments CULTURE, URINE (test SPECIMEN NUMBER: code = 11353) [id number] CULTURE, [id number] 00:00:00 Test Item Value Reference Range Interpretation Comments CULTURE, URINE (test SPECIMEN NUMBER: code = 99325) [id number] CULTURE, [id number] 00:00:00 Test Item Value Reference Range Interpretation Comments CULTURE, URINE (test SPECIMEN NUMBER: code = 26845) [id number] CULTURE, [id number] 00:00:00 Test Item Value Reference Range Interpretation Comments CULTURE, URINE (test SPECIMEN NUMBER: code = 62369) [id number] CULTURE, [id number] 00:00:00 Test Item Value Reference Range Interpretation Comments CULTURE, URINE (test SPECIMEN NUMBER: code = 58498) [id number] CULTURE, [id number] 00:00:00 Test Item Value Reference Range Interpretation Comments CULTURE, URINE (test SPECIMEN NUMBER: code = 16608) [id number] CULTURE, [id number] 00:00:00 Test Item Value Reference Range Interpretation Comments CULTURE, URINE (test SPECIMEN NUMBER: code = 61000) [id number] CULTURE, [id number] 00:00:00 Test Item Value Reference Range Interpretation Comments CULTURE, URINE (test SPECIMEN NUMBER: code = 20209) [id number] CULTURE, [id number] 00:00:00 Test Item Value Reference Range Interpretation Comments CULTURE, URINE (test SPECIMEN NUMBER: code = 18943) [id number] CULTURE, [id number] 00:00:00 Test Item Value Reference Range Interpretation Comments CULTURE, URINE (test SPECIMEN NUMBER: code = 49018) [id number] CULTURE, [id number] 00:00:00 Test Item Value Reference Range Interpretation Comments CULTURE, URINE (test SPECIMEN NUMBER: code = 07954) [id number] CULTURE, [id number] 00:00:00 Test Item Value Reference Range Interpretation Comments CULTURE, URINE (test SPECIMEN NUMBER: code = 17357) [id number]
[2022-07-28] MEDS ORDERED: ACETAMINOPHEN 500 MG TAB ONE (07:39)
[2022-07-28] MEDS ORDERED: predniSONE 20 MG TAB ONE (07:39)
[2022-07-28] MEDS ORDERED: IPRATROPIUM BROM 0.5MG/2.5ML ONE (07:40)
[2022-07-28] MEDS ORDERED: ALBUTEROL 2.5 MG/3 ML NEB SOL ONE (07:40)
[2022-07-28 08:27] LABS: Hematocrit 42.3 % (36.0-45.0); MCV 92.8 fL (80-100); MPV 6.8 fL (7.6-11.3); RBC Red Blood Cell Count 4.56 M/uL (3.86-4.86)
--- NOTE | 2022-07-28 08:28 | RAD REPORT ---
EXAM DESCRIPTION: RADChest Single View07/28/2022 8:18 am CLINICAL HISTORY: DYSPNEA COMPARISON: Chest Single View dated 07/01/2022; Chest Single View dated 06/30/2022; Abdomen Acute Seri es dated 05/05/2022; Chest Single View dated 02/08/2022 TECHNIQUE: Portable AP view of the chest. FINDINGS: The lungs are clear. No pneumothorax or effusion. The cardiomediastinal contours are unrem arkable. IMPRESSION: No acute cardiopulmonary process.
[2022-07-28 09:11] LABS: Albumin 3.6 g/dL (3.4-5.0); Bilirubin Total 0.3 mg/dL (0.2-1.0); Potassium 4.2 mEq/L (3.5-5.1); Protein, Total 7.4 g/dL (6.4-8.2); Troponin High Sensitivity 6.5 pg/mL (<58.9)
--- NOTE | 2022-07-28 09:17 | ER ---
Nurse's Notes [facility] Name: Jaimie Amanda Age: 61 yrs Sex: Female : 1960 Arrival Date: 07/28/2022 Time: 06:58 Bed 13 Private MD: Diagnosis: Acute bronchitis, unspecified Presentation: 07/28 07:15 Chief complaint: Patient states: SOB, cough, headache, and general weakness, no fever. ph Denies nausea or abdominal pain, mother at bedside states that she took 0.3 clonidine, a Klonopin and nausea medication [employer]. Coronavirus screen: Vaccine status: Patient reports receiving the 2nd dose of the covid vaccine. Ebola Screen: No symptoms or risks identified at this time. Initial Sepsis Screen: Does the patient meet any 2 criteria? No. Patient's initial sepsis screen is negative. Does the patient have a suspected source of infection? No. Patient's initial sepsis screen is negative. Risk Assessment: Do you want to hurt yourself or someone else? Patient reports no desire to harm self or others. Onset of symptoms was July 28, 2022. 07:15 Method Of Arrival: Ambulatory ph 07:15 Acuity: ZHEN 3 ph Triage Assessment: 07:22 General: Appears in no apparent distress. Behavior is calm, cooperative. Pain: ph Complains of pain in headache. Neuro: Level of Consciousness is awake, alert, obeys commands, Oriented to person, place, time, situation. Cardiovascular: Capillary refill < 3 seconds in bilateral fingers Patient's skin is warm and dry. Respiratory: Reports shortness of breath at rest cough that is Onset: The symptoms/episode began/occurred yesterday, the patient has mild shortness of breath. GI: No signs and/or symptoms were reported involving the gastrointestinal system. Derm: Skin is pink, warm \T\ dry. Musculoskeletal: Circulation, motion, and sensation intact. Range of motion: intact in all extremities. Historical: - Allergies: 07:21 hydrochlorothiazide; ph - Home Meds: 07:21 Clonidine Oral [Active]; ph - PMHx: 07:21 Anxiety; Chronic Abdominal Pain; Hypertensive disorder; Hypothyroidism; low NA; NIDDM; ph - PSHx: 07:21 Thyroidectomy; ph - Immunization history:: Adult Immunizations unknown. - Social history:: Smoking status: Patient reports the use of cigarette tobacco products, smokes one pack cigarettes per day. - Family history:: not pertinent, pertinent for. Screenin:23 [facility] ED Fall Risk Assessment (Adult) History of falling in the last 3 months, ph including since admission No falls in past 3 months (0 pts) Confusion or Disorientation No (0 pts) Intoxicated or Sedated No (0 pts) Impaired Gait No (0 pts) Mobility Assist Device Used No (0 pt) Altered Elimination No (0 pt) Score/Fall Risk Level 0 - 2 = Low Risk Oriented to surroundings, Maintained a safe environment, Hourly rounding (assess needs \T\ fall precautionary measures) done. Abuse screen: Denies threats or abuse. Denies injuries from another. Nutritional screening: No deficits noted. Tuberculosis screening: No symptoms or risk factors identified. Assessment: 07:25 General: SEE TRIAGE ASSESSMENT. ph 08:04 Reassessment: Patient appears in no apparent distress at this time. Patient and/or ph family updated on plan of care and expected duration. Pain level reassessed. Patient is alert, oriented x 3, equal unlabored respirations, skin warm/dry/pink. Vital Signs: 07:15 BP 128 / 72; Pulse 72; Resp 18; Temp 97.2; Pulse Ox 95% on R/A; Weight 70.31 kg; Height ph 5 ft. 7 in. ; 08:04 BP 100 / 62; Pulse 58; Resp 18; Pulse Ox 100% on Nebulizer Mask; ph 09:10 BP 114 / 68; Pulse 65; Resp 18; Pulse Ox 91% on R/A; ph 07:15 Body Mass Index 24.28 (70.31 kg, 170.18 cm) ED Course: 06:59 Patient arrived in ED. am2 07:03 Jey White MD is Attending Physician. rt 07:15 Shruthi Donohue, CATY is Primary Nurse. ph 07:21 Triage completed. ph 07:23 Arm band placed on Patient placed in an exam room, on a stretcher. ph 07:23 Patient has correct armband on for positive identification. Bed in low position. Call light in reach. Side rails up X 1. Pulse ox on. NIBP on. Door closed. Noise minimized. Warm blanket given. 08:05 Initial lab(s) drawn, by me, sent to lab. EKG done. Missed attempt(s): 24 gauge in ph right hand. Bleeding controlled, band aid applied, catheter tip intact. 08:20 Chest Single View XRAY In Process Unspecified. EDMS 09:32 No provider procedures requiring assistance completed. Patient did not have IV access kc6 during this emergency room visit. Administered Medications: 08:04 Drug: Acetaminophen PO 1000 mg Route: PO; ph 09:05 Follow up: Response: No adverse reaction ph 08:04 Drug: DuoNeb Nebulize (3:1) (2.5 mg - 0.5 mg) 3 ml Route: Nebulizer; ph 09:05 Follow up: Response: No adverse reaction ph 08:04 Drug: predniSONE PO 40 mg Route: PO; ph 09:05 Follow up: Response: No adverse reaction ph Medication: 07:23 VIS not applicable for this client. ph Outcome: 09:17 Discharge ordered by . rt 09:32 Discharged to home ambulatory, with family. kc6 09:32 Condition: stable 09:32 Discharge instructions given to patient, Instructed on discharge instructions, follow up and referral plans. medication usage, Demonstrated understanding of instructions, follow-up care, medications, Prescriptions given X 2. 09:32 Patient left the ED. kc6 Signatures: Dispatcher [employer] EDMS Shruthi Donohue RN RN ph Elisa Gregory am2 Kelly Beavers RN RN kc6 Jey White MD MD rt Corrections: (The following items were deleted from the chart) 09:32 09:32 Discharge instructions given to patient, Instructed on discharge instructions, kc6 follow up and referral plans. medication usage, Demonstrated understanding of instructions, follow-up care, medications, Prescriptions given X 3, kc6
--- NOTE | 2022-07-28 09:17 | EDPHYS ---
Physician Documentation [facility] Name: Jaimie Amanda Age: 61 yrs Sex: Female : 1960 Arrival Date: 07/28/2022 Time: 06:58 Bed 13 Private MD: ED Physician Jey White HPI: 07/28 07:57 This 61 yrs old Female presents to ER via Ambulatory with complaints of Breathing rt Difficulty, Wheezing > 1 Year. 07:57 Patient presents to the ED with cough, wheezing starting this morning. She does report rt a headache. Patient states that she does not typically get the short of breath. Denies chest pain, other acute complaints. Of note, patient does smoke a pack per day for many years. Denies other acute complaints at this time, symptoms are moderate severity, no other aggravating or alleviating factors.. Historical: - Allergies: 07:21 hydrochlorothiazide; ph - Home Meds: 07:21 Clonidine Oral [Active]; ph - PMHx: 07:21 Anxiety; Chronic Abdominal Pain; Hypertensive disorder; Hypothyroidism; low NA; NIDDM; ph - PSHx: 07:21 Thyroidectomy; ph - Immunization history:: Adult Immunizations unknown. - Social history:: Smoking status: Patient reports the use of cigarette tobacco products, smokes one pack cigarettes per day. - Family history:: not pertinent, pertinent for. ROS: 07:57 Constitutional: Negative for fever, chills, and weight loss, Cardiovascular: Negative rt for chest pain, palpitations, and edema, Abdomen/GI: Negative for abdominal pain, nausea, vomiting, diarrhea, and constipation, MS/Extremity: Negative for injury and deformity, Skin: Negative for injury, rash, and discoloration, Psych: Negative for depression, anxiety, suicide ideation, homicidal ideation, and hallucinations. 07:57 Respiratory: Positive for cough, shortness of breath, wheezing. Exam: 07:57 Constitutional: This is a well developed, well nourished patient who is awake, alert, rt and in no acute distress. Head/Face: Normocephalic, atraumatic. Chest/axilla: Normal chest wall appearance and motion. Nontender with no deformity. No lesions are appreciated. Cardiovascular: Regular rate and rhythm with a normal S1 and S2. No gallops, murmurs, or rubs. Normal PMI, no JVD. No pulse deficits. Abdomen/GI: Soft, non-tender, with normal bowel sounds. No distension or tympany. No guarding or rebound. No evidence of tenderness throughout. Skin: Warm, dry with normal turgor. Normal color with no rashes, no lesions, and no evidence of cellulitis. MS/ Extremity: Pulses equal, no cyanosis. Neurovascular intact. Full, normal range of motion. Neuro: Awake and alert, GCS 15, oriented to person, place, time, and situation. Cranial nerves II-XII grossly intact. Motor strength 5/5 in all extremities. Sensory grossly intact. Cerebellar exam normal. Normal gait. Psych: Awake, alert, with orientation to person, place and time. Behavior, mood, and affect are within normal limits. 07:57 ECG was reviewed by the Attending Physician. 07:57 Respiratory: Wheezes heard on all lung ferrell, no respiratory distress. 07:57 Abdomen/GI: Vital Signs: 07:15 BP 128 / 72; Pulse 72; Resp 18; Temp 97.2; Pulse Ox 95% on R/A; Weight 70.31 kg; Height ph 5 ft. 7 in. ; 08:04 BP 100 / 62; Pulse 58; Resp 18; Pulse Ox 100% on Nebulizer Mask; ph 09:10 BP 114 / 68; Pulse 65; Resp 18; Pulse Ox 91% on R/A; ph 07:15 Body Mass Index 24.28 (70.31 kg, 170.18 cm) ph MDM: 07:22 Patient medically screened. rt 09:19 Differential diagnosis: Bronchitis, pneumonia, pneumothorax, congestive heart failure. rt Antibiotic administration: Not indicated, the patient does not have an appreciated infiltrate. Data reviewed: vital signs, nurses notes, lab test result(s), EKG, radiologic studies. I considered the following discharge prescriptions or medication management in the emergency department Medications were administered in the Emergency Department. See MAR. Independent interpretation of the following test(s) in the Emergency Department X-Ray: My interpretation is No consolidation seen on my interpretation of the x-ray images. Test considered but Not performed: CT: Low suspicion for pulmonary embolism, CT angiogram not indicated. External Records Reviewed: Outpatient labs: Patient has chronic hyponatremia, sodium is currently at baseline.. Care significantly affected by the following chronic conditions: Hypertension. Counseling: I had a detailed discussion with the patient and/or guardian regarding: the historical points, exam findings, and any diagnostic results supporting the discharge/admit diagnosis, lab results, radiology results, the need for outpatient follow up. ED course: Tobacco cessation discussed with patient. 07/28 07:27 Order name: CBC w/o diff; Complete Time: 08:34 rt 07/28 07:27 Order name: CMP; Complete Time: 09:12 rt 07/28 07:27 Order name: Troponin High Sensitivity; Complete Time: 09:12 rt 07/28 07:27 Order name: BNP; Complete Time: 09:12 rt 07/28 07:27 Order name: Chest Single View XRAY; Complete Time: 08:34 rt 07/28 07:27 Order name: EKG; Complete Time: 07:28 rt 07/28 07:27 Order name: EKG - Nurse/Tech; Complete Time: 07:58 rt 07/28 08:30 Order name: Labs - recollect needed: recollect green top.; Complete Time: 09:05 bd EC:57 Rate is 61 beats/min. Rhythm is regular, Normal Sinus Rhythm with No ectopy. QRS [place] rt is Normal. ND interval is normal. QRS interval is normal. QT interval is normal. No Q waves. Clinical impression: NSR w/ Non-specific ST/T Changes. Interpreted by me. Administered Medications: 08:04 Drug: Acetaminophen PO 1000 mg Route: PO; ph 09:05 Follow up: Response: No adverse reaction ph 08:04 Drug: DuoNeb Nebulize (3:1) (2.5 mg - 0.5 mg) 3 ml Route: Nebulizer; ph 09:05 Follow up: Response: No adverse reaction ph 08:04 Drug: predniSONE PO 40 mg Route: PO; ph 09:05 Follow up: Response: No adverse reaction ph Disposition Summary: 07/28/22 09:17 Discharge Ordered Location: Home rt Problem: new rt Symptoms: have improved rt Condition: Stable rt Diagnosis - Acute bronchitis, unspecified rt Followup: rt - With: Private Physician - When: Tomorrow - Reason: Discharge Instructions: - Discharge Summary Sheet rt - Acute Bronchitis, Adult rt Forms: - Medication Reconciliation Form rt - Thank You Letter rt - Antibiotic Education rt - Prescription Opioid Use rt Prescriptions: - albuterol sulfate 90 mcg/actuation Inhalation HFA Aerosol Inhaler - inhale 4 puff by INHALATION route every 2 hours as needed for bronchospasm;; 2 rt Each; Refills: 0, Product Selection Permitted - Prednisone 20 mg Oral Tablet - take 1 tablet by ORAL route once daily for 4 days; 4 tablet; Refills: 0, rt Product Selection Permitted Signatures: Dispatcher [employer] Tiffani Hagan Patricia, RN RN ph Jey White MD MD rt
[2022-07-28 09:38] VITALS: TEMP 97.2
[2022-07-28 09:41] VITALS: BP 114/68; O2SAT 91
--- NOTE | 2022-07-30 05:02 | EKG ---
Test Date: 2022-07-28 Test Time: 07:41:42 Peanut Picker: PH MEASUREMENT RESULTS: Intervals: Rate: 61 NV: 184 QRSD: 86 QT: 392 QTc: 394 [place]: P: 59 NV: 184 QRS: 57 T: 75 INTERPRETIVE STATEMENTS: Normal sinus rhythm Septal infarct, age undetermined Abnormal ECG Compared to ECG 07/02/2022 01:23:55 Myocardial infarct finding now present First degree AV block no longer present Electronically Signed On 07-30-22 04:55:09 CDT by Daniel Cespedes
== END 2022-07-28 09:32 | disposition home or self-care (01) ==
LOC: ER 06:58
DX: J20.9 Acute bronchitis, unspecified (principal); F41.9 Anxiety disorder, unspecified; I10 Essential (primary) hypertension; F17.210 Nicotine dependence, cigarettes, uncomplicated; Z88.8 Allergy status to other drugs, medicaments and biological substances
CPT/HCPCS: 93005; 36415; 85027; 84484; 80053; 83880; 71045; J7512; J7613; J7644

== ENCOUNTER 2022-07-29 03:30 | Emergency (ER) | payer OTHER ==
--- OUTSIDE RECORDS SUMMARY | 2022-07-29 03:41 | XMS REPORT | Continuity of Care Document ---
:[address] [facility] t Address [address] [facility] [address] [place] [address] Care Team Providers Name Role Phone Sharpless Primary Care Physician MATT SIMPSON Attending Clinician Unavailable MATT SIMPSON Attending Clinician Unavailable Doctor Unassigned, Monette Attending Clinician Unavailable WALLY KRISHNAMURTHY Attending Clinician Unavailable Natacha Brewster Attending Clinician Payers Payer Name Policy Type Policy Number Effective Date Expiration Date Sarina castelan FORMERLY [facility] [id number] 2017 00:00:00 PLUS Problems This patient has [...] s TRANSDER - ity of MAL 00:00: [place] [facility] ACETAMIN DRUG Active Other-Cmnt Univ ers OPHEN INGREDI - ity of 00:00: [place] 00 [facility] Hmg-Coa Propensi Inactiv Reductas ty to e 2-28 e adverse 00:00: Inhibito reaction 00 rs to drug Nitrogly Propensi Active 2017-03 cerin ty to 08 adverse 00:00: reaction 00 to drug Social History Social Habit Start Date Stop Date Quantity Comments Source History of Smokes tobacco [facility] Alcohol intake 2016-05-01 2016-05-01 [address] [facility] 00:00:00 00:00:00 non-drinker of Medical Ce nter alcohol (finding) Sex Ass[birth year] At [birth year] [facility] 00:00:00 00:00:00 [facility] Smoking Status Start Date Stop Date Source Smokes tobacco daily 2016-05-01 00:00:00 [facility] [...] NEEDED FOR NAUSEA AND VOMITING TAKE 1 2021-1 No TABLET BY 1-04 MOUTH DAILY 00:00: AT BEDTIME 00 Dose 2-1 No Unknown -04 00:00: 00 TAKE 1 2021-1 No TABLET [...] 00 TAKE 1 2-0 No TABLET BY 11-08 MOUTH EVERY 00:00: [...] TAKE 2 2022-0 No 750 TABLETS BY 9- MOUTH THREE [...] 2018-1 No 1mg OTC 20 mg 1-08 tabletmali 00:00: yed trazodone 2018-1 No 1mg 100 mg 1-08 [...] capsule 00:00: 00 OXcarbazepi 2017-0 Yes 600mg Q.[id number] Take [address] [facility] [address] [facility] 2-23 [id number] [facility] 10:23: 3D mouth 3 Med ical 600 [facility] 59 (three) Center tablet times daily. PARoxetine 2017-0 Yes 40mg QD Take [address] (PAXIL) 40 2-23 [facility] tablet 10:23: nightly. [facility] [address] OXcarbazepi 2017-0 Yes 600mg Q.[id number] Take [address] ne 2-23 [id number] [facility] (TR[facility]AL) 10:23: 3D mouth 3 Med ical 600 [facility] 59 (three) Center tablet times daily. PARoxetine 2017-0 Yes 40mg QD Take [address] (PAXIL) 40 2-23 [facility] tablet 10:23: nightly. [facility] [address] OXcarbazepi 2017-0 Yes 600mg Q.[id number] Take [address] ne 2-23 [id number] [facility] (TRILEPTAL) 10:23: 3D mouth 3 Med ical 600 [facility] 59 (three) Center tablet times daily. PARoxetine 2017-0 Yes 40mg QD Take [address] (PAXIL) 40 2-23 [facility] tablet 10:23: nightly. [facility] [address] OXcarbazepi 2017-0 Yes 600mg Q.[id number] Take [address] ne 2-23 [id number] [facility] (TRILEPTAL) 10:23: 3D mouth 3 Med ical 600 [facility] 59 (three) Center tablet times daily. PARoxetine 2017-0 Yes 40mg QD Take [address] (PAXIL) 40 2-23 [facility] tablet 10:23: nightly. [address] OXcarbazepi 2017-0 Yes 600mg Q.[id number] Take [address] ne 2-23 [id number] [facility] (TRILEPTAL) 10:23: 3D mouth 3 Med ical 600 MG 59 (three) Center tablet times daily. PARoxetine 2017-0 Yes 40mg QD Take [address] (PAXIL) 40 2-23 [facility] tablet 10:23: nightly. [facility] [address] OXcarbazepi 2017-0 Yes 600mg Q.[id number] Take [address] ne 2-23 [id number] [facility] (TRILEPTAL) 10:23: 3D mouth 3 Med ical 600 MG 59 (three) Center tablet times daily. PARoxetine 2017-0 Yes 40mg QD Take [address] (PAXIL) 40 2-23 [facility] tablet 10:23: nightly. [address] OXcarbazepi 2017-0 Yes 600mg Q.[id number] Take [address] ne 2-23 [id number] [facility] (TRILEPTAL) 10:23: 3D mouth 3 Med ical 600 MG 59 (three) Center tablet times daily. PARoxetine 2017-0 Yes 40mg QD Take [address] (PAXIL) 40 2-23 [facility] tablet 10:23: nightly. [address] OXcarbazepi 2017-0 Yes 600mg Q.[id number] Take [address] ne 2-23 [id number] [facility] (TRILEPTAL) 10:23: 3D mouth 3 Med ical 600 MG 59 (three) Center tablet times daily. PARoxetine 2017-0 Yes 40mg QD Take [address] (PAXIL) 40 2-23 [facility] tablet 10:23: nightly. [address] OXcarbazepi 2017-0 Yes 600mg Q.[id number] Take [address] ne 2-23 [id number] [facility] (TRILEPTAL) 10:23: 3D mouth 3 Med ical 600 MG 59 (three) Center tablet times daily. PARoxetine 2017-0 Yes 40mg QD Take [address] (PAXIL) 40 2-23 [facility] tablet 10:23: nightly. [address] OXcarbazepi 2017-0 Yes 600mg Q.[id number] Take [address] ne 2-23 [id number] [facility] (TRILEPTAL) 10:23: 3D mouth 3 Med ical 600 MG 59 (three) Center tablet times daily. PARoxetine 2017-0 Yes 40mg QD Take [address] (PAXIL) 40 2-23 [facility] tablet 10:23: nightly. [address] OXcarbazepi 2017-0 Yes 600mg Q.[id number] Take [address] ne 2-23 [id number] [facility] (TRILEPTAL) 10:23: 3D mouth 3 Med ical 600 MG 59 (three) Center tablet times daily. OXcarbazepi 2017-0 Yes 600mg Q.[id number] Take [address] ne 2-23 [id number] [facility] (TRILEPTAL) 10:23: 3D mouth 3 Med ical 600 MG 59 (three) Center tablet times daily. PARoxetine 2017-0 Yes 40mg QD Take [address] (PAXIL) 40 2-23 [facility] tablet 10:23: nightly. [address] OXcarbazepi 2017-0 Yes 600mg Q.[id number] Take [address] ne 2-23 [id number] [facility] (TRILEPTAL) 10:23: 3D mouth 3 Med ical 600 MG 59 (three) Center tablet times daily. PARoxetine 2017-0 Yes 40mg QD Take [address] (PAXIL) 40 2-23 [facility] tablet 10:23: nightly. [address] OXcarbazepi 2017-0 Yes 600mg Q.[id number] Take [address] ne 2-23 [id number] [facility] (TRILEPTAL) 10:23: 3D mouth 3 Med ical 600 MG 59 (three) Center tablet times daily. PARoxetine 2017-0 Yes 40mg QD Take [address] (PAXIL) 40 2-23 [facility] tablet 10:23: nightly. [address] PARoxetine 2017-0 Yes 40mg QD Take [address] (PAXIL) 40 2-23 [facility] tablet 10:23: nightly. [address] OXcarbazepi 2017-0 Yes 600mg Q.11971101 Take [address] ne 2-23 [id number] [facility] (TRILEPTAL) 10:23: 3D mouth 3 Med ical 600 MG 59 (three) Center tablet times daily. PARoxetine 2017-0 Yes 40mg QD Take [address] (PAXIL) 40 2-23 [facility] tablet 10:23: nightly. [address] OXcarbazepi 2017-0 Yes 600mg Q.[id number] Take [address] ne 2-23 [id number] [facility] (TRILEPTAL) 10:23: 3D mouth 3 Med ical 600 MG 59 (three) Center tablet times daily. PARoxetine 2017-0 Yes 40mg QD Take [address] (PAXIL) 40 2-23 [facility] tablet 10:23: nightly. [address] 2017-0 Yes 600mg Q.[id number] Take [address] ne 2-23 [id number] [facility] (TRILEPTAL) 10:23: 3D mouth 3 Med ical 600 MG 59 (three) Center tablet times daily. PARoxetine 2017-0 Yes 40mg QD Take [address] (PAXIL) 40 2-23 [facility] tablet 10:23: nightly. [address] 2017-0 Yes 600mg Q.18026145 Take [address] ne 2-23 [id number] [facility] (TRILEPTAL) 10:23: 3D mouth 3 Med ical 600 MG 59 (three) Center tablet times daily. PARoxetine 2017-0 Yes 40mg QD Take [address] (PAXIL) 40 2-23 [facility] tablet 10:23: nightly. [address] 2017-0 Yes 600mg Q.[id number] Take [address] ne 2-23 [id number] [facility] (TRILEPTAL) 10:23: 3D mouth 3 Med ical 600 MG 59 (three) Center tablet times daily. PARoxetine 2017-0 Yes 40mg QD Take [address] (PAXIL) 40 2-23 [facility] tablet 10:23: nightly. [address] 2017-0 Yes 600mg Q.[id number] Take [address] ne 2-23 [id number] [facility] (TRILEPTAL) 10:23: 3D mouth 3 Med ical 600 MG 59 (three) Center tablet times daily. PARoxetine 2017-0 Yes 40mg QD Take [address] (PAXIL) 40 2-23 [facility] tablet 10:23: nightly. [address] OXcarbazepi 2017-0 Yes 600mg Q.[id number] Take [address] ne 2-23 [id number] [facility] (TRILEPTAL) 10:23: 3D mouth 3 Med ical 600 MG 59 (three) Center tablet times daily. PARoxetine 2017-0 Yes 40mg QD Take [address] (PAXIL) 40 2-23 [facility] tablet 10:23: nightly. [facility] [address] OXcarbazepi 2017-0 Yes 600mg Q.[id number] Take [address] ne 2-23 [id number] mg [facility] (TRILEPTAL) 10:23: 3D mouth 3 Med ical 600 MG 59 (three) Center tablet times daily. OXcarbazepi 2017-0 Yes 600mg Q.[id number] Take [address] ne 2-23 [id number] [facility] (TRILEPTAL) 10:23: 3D mouth 3 Med ical 600 MG 59 (three) Center tablet times daily. PARoxetine 2017-0 Yes 40mg QD Take [address] (PAXIL) 40 2-23 [facility] tablet 10:23: nightly. [address] OXcarbazepi 2017-0 Yes 600mg Q.[id number] Take [address] ne 2-23 [id number] [facility] (TRILEPTAL) 10:23: 3D mouth 3 Med ical 600 MG 59 (three) Center tablet times daily. PARoxetine 2017-0 Yes 40mg QD Take [address] (PAXIL) 40 2-23 [facility] tablet 10:23: nightly. [address] OXcarbazepi 2017-0 Yes 600mg Q.[id number] Take [address] ne 2-23 [id number] [facility] (TRILEPTAL) 10:23: 3D mouth 3 Med ical 600 MG 59 (three) Center tablet times daily. PARoxetine 2017-0 Yes 40mg QD Take [address] (PAXIL) 40 2-23 by [facility] tablet 10:23: nightly. [address] OXcarbazepi 2017-0 Yes 600mg Q.[id number] Take [address] ne 2-23 [id number] [facility] (TRILEPTAL) 10:23: 3D mouth 3 Med ical 600 MG 59 (three) Center tablet times daily. PARoxetine 2017-0 Yes 40mg QD Take [address] (PAXIL) 40 2-23 [facility] tablet 10:23: nightly. [address] PARoxetine 2017-0 Yes 40mg QD Take [address] (PAXIL) 40 2-23 [facility] tablet 10:23: nightly. [address] OXcarbazepi 2017-0 Yes 600mg Q.[id number] Take [address] ne 2-23 [id number] [facility] (TRILEPTAL) 10:23: 3D mouth 3 Med ical 600 [facility] 59 (three) Center tablet times daily. PARoxetine 2017-0 Yes 40mg QD Take [address] (PAXIL) 40 2-23 by [facility] tablet 10:23: nightly. [address] OXcarbazepi 2017-0 Yes 600mg Q.[id number] Take [address] ne 2-23 [id number] [facility] (TRILEPTAL) 10:23: 3D mouth 3 Med ical 600 [facility] 59 (three) Center tablet times daily. PARoxetine 2017-0 Yes 40mg QD Take [address] (PAXIL) 40 2-23 by [facility] tablet 10:23: nightly. [address] OXcarbazepi 2017-0 Yes 600mg Q.[id number] Take [address] ne 2-23 [id number] [facility] (TRILEPTAL) 10:23: 3D mouth 3 Med ical 600 MG 59 (three) Center tablet times daily. PARoxetine 2017-0 Yes 40mg QD Take [address] (PAXIL) 40 2-23 [facility] tablet 10:23: nightly. [address] OXcarbazepi 2017-0 Yes 600mg Q.[id number] Take [address] ne 2-23 [id number] [facility] (TRILEPTAL) 10:23: 3D mouth 3 Med ical 600 MG 59 (three) Center tablet times daily. PARoxetine 2017-0 Yes 40mg QD Take [address] (PAXIL) 40 2-23 [facility] tablet 10:23: nightly. [address] OXcarbazepi 2017-0 Yes 600mg Q.[id number] Take [address] ne 2-23 [id number] [facility] (TRILEPTAL) 10:23: 3D mouth 3 Med ical 600 MG 59 (three) Center tablet times daily. PARoxetine 2017-0 Yes 40mg QD Take [address] (PAXIL) 40 2-23 [facility] tablet 10:23: nightly. [facility] [address] OXcarbazepi 2017-0 Yes 600mg Q.12564179 Take [address] ne 2-23 [id number] [facility] (TRILEPTAL) 10:23: 3D mouth 3 Med ical 600 MG 59 (three) Center tablet times daily. PARoxetine 2017-0 Yes 40mg QD Take [address] (PAXIL) 40 2-23 [facility] tablet 10:23: nightly. [facility] [address] OXcarbazepi 2017-0 Yes 600mg Q.[id number] Take [address] ne 2-23 [id number] [facility] (TRILEPTAL) 10:23: 3D mouth 3 Med ical 600 [facility] 59 (three) Center tablet times daily. PARoxetine 2017-0 Yes 40mg QD Take [address] (PAXIL) 40 2-23 [facility] tablet 10:23: nightly. [address] OXcarbazepi 2017-0 Yes 600mg Q.[id number] Take [address] ne 2-23 [id number] [facility] (TRILEPTAL) 10:23: 3D mouth 3 Med ical 600 MG 59 (three) Center tablet times daily. OXcarbazepi 2017-0 Yes 600mg Q.[id number] Take [address] ne 2-23 [id number] [facility] (TRILEPTAL) 10:23: 3D mouth 3 Med ical 600 MG 59 (three) Center tablet times daily. PARoxetine 2017-0 Yes 40mg QD Take [address] (PAXIL) 40 2-23 by [facility] tablet 10:23: nightly. [facility] [address] OXcarbazepi 2017-0 Yes 600mg Q.[id number] Take [address] ne 2-23 [id number] mg [facility] (TRILEPTAL) 10:23: 3D mouth 3 Med ical 600 MG 59 (three) Center tablet times daily. PARoxetine 2017-0 Yes 40mg QD Take [address] (PAXIL) 40 2-23 [facility] tablet 10:23: nightly. [address] OXcarbazepi 2017-0 Yes 600mg Q.74511144 Take [address] ne 2-23 [id number] [facility] (TRILEPTAL) 10:23: 3D mouth 3 Med ical 600 MG 59 (three) Center tablet times daily. PARoxetine 2017-0 Yes 40mg QD Take [address] (PAXIL) 40 2-23 [facility] tablet 10:23: nightly. [address] PARoxetine 2017-0 Yes 40mg QD Take [address] (PAXIL) 40 2-23 by [facility] tablet 10:23: nightly. [address] OXcarbazepi 2017-0 Yes 600mg Q.[id number] Take [address] ne 2-23 [id number] [facility] (TRILEPTAL) 10:23: 3D mouth 3 Med ical 600 MG 59 (three) Center tablet times daily. PARoxetine 2017-0 Yes 40mg QD Take [address] (PAXIL) 40 2-23 by [facility] tablet 10:23: nightly. [address] OXcarbazepi 2017-0 Yes 600mg Q.[id number] Take [address] ne 2-23 [id number] [facility] (TRILEPTAL) 10:23: 3D mouth 3 Med ical 600 MG 59 (three) Center tablet times daily. PARoxetine 2017-0 Yes 40mg QD Take [address] (PAXIL) 40 2-23 [facility] tablet 10:23: nightly. [address] LORazepam 2017-0 Yes 1mg Take 1 [...] Goal Plan of Care Note [code = 41911-3] Goal Plan of Care Note [code = 85953-5] Goal Plan of Care Note [code = 73347-3] Goal Plan of Care Note [code = 19227-6] Goal Plan of Care Note [code = 86916-2] Goal Plan of Care Note [code = 27857-1] Goal Plan of Care Note [code = 09404-4] Goal Plan of Care Note [code = 70962-5] Goal Plan of Care Note [code = 14016-9] Goal Plan of Care Note [code = 52351-0] Goal Plan of Care Note [code = 60609-5] Goal Plan of Care Note [code = 52514-5] Goal Plan of Care Note [code = 00925-4] Goal Plan of Care Note [code = 63795-5] Goal Plan of Care Note [code = 29069-2] Goal Plan of Care Note [code = 15787-1] Goal Plan of Care Note [code = 27071-9] Goal Plan of Care Note [code = 98351-6] Goal Plan of Care Note [code = 00295-8] Goal Plan of Care Note [code = 36776-4] Goal Plan of Care Note [code = 47300-2] Goal Plan of Care Note [code = 64700-5] Goal Plan of Care Note [code = 93649-1] Goal Plan of Care Note [code = 56732-0] Goal Plan of Care Note [code = 48667-3] Goal Plan of Care Note [code = 61418-9] Goal Plan of Care Note [code = 54055-3] Goal Plan of Care Note [code = 54014-7] Goal Plan of Care Note [code = 03193-9] Goal Plan of Care Note [code = 06241-3] Goal Plan of Care Note [code = 20103-0] Goal Plan of Care Note [code = 63815-7] Goal Plan of Care Note [code = 08995-8] Goal Plan of Care Note [code = 08332-4] Goal Plan of Care Note [code = 74436-0] Goal Plan of Care Note [code = 92904-2] Goal Plan of Care Note [code = 00684-5] Goal Plan of Care Note [code = 89082-4] Goal Plan of Care Note [code = 61993-6] Goal Plan of Care Note [code = 34634-3] Goal Plan of Care Note [code = 90903-5] Goal Plan of Care Note [code = 91974-2] Goal Plan of Care Note [code = 33710-4] Goal Plan of Care Note [code = 87317-2] Goal Plan of Care Note [code = 76573-3] Goal Plan of Care Note [code = 75435-2] Goal Plan of Care Note [code = 24165-0] Goal Plan of Care Note [code = 46855-8] Goal Plan of Care Note [code = 64997-9] Goal Plan of Care Note [code = 68685-2] Goal Plan of Care Note [code = 85827-5] Goal Plan of Care Note [code = 15218-5] Goal Plan of Care Note [code = 78822-7] Goal Plan of Care Note [code = 91837-2] Goal Plan of Care Note [code = 96760-8] Goal Plan of Care Note [code = 17679-1] Goal Plan of Care Note [code = 13621-6] Goal Plan of Care Note [code = 72748-9] Goal Plan of Care Note [code = 58871-2] Goal Plan of Care Note [code = 17451-0] Goal Plan of Care Note [code = 97288-7] Goal Plan of Care Note [code = 84919-3] Goal Plan of Care Note [code = 23605-0] Goal Plan of Care Note [code = 89077-2] Goal Plan of Care Note [code = 40832-9] Goal Plan of Care Note [code = 62402-7] Goal Plan of Care Note [code = 79973-4] Goal Plan of Care Note [code = 03016-3] Goal Plan of Care Note [code = 53244-0] Goal Plan of Care Note [code = 84253-1] Goal Plan of Care Note [code = 47650-6] Goal Plan of Care Note [code = 58281-6] Goal Plan of Care Note [code = 20561-4] Goal Plan of Care Note [code = 45300-5] Goal Plan of Care Note [code = 77428-9] Goal Plan of Care Note [code = 61181-4] Goal Plan of Care Note [code = 25584-3] Goal Plan of Care Note [code = 22658-9] Goal Plan of Care Note [code = 80117-6] Goal Plan of Care Note [code = 98297-2] Goal Plan of Care Note [code = 83034-4] Goal Plan of Care Note [code = 53764-0] Goal Plan of Care Note [code = 45369-3] Goal Plan of Care Note [code = 00040-1] Goal Plan of Care Note [code = 12792-3] Goal Plan of Care Note [code = 08680-9] Goal Plan of Care Note [code = 58372-5] Goal Plan of Care Note [code = 69735-3] Goal Plan of Care Note [code = 81999-3] Goal Plan of Care Note [code = 39967-2] Goal Plan of Care Note [code = 48223-0] Goal Plan of Care Note [code = 62797-8] Goal Plan of Care Note [code = 26929-0] Goal Plan of Care Note [code = 67253-3] Goal Plan of Care Note [code = 12365-9] Goal Plan of Care Note [code = 62772-7] Goal Plan of Care Note [code = 62879-1] Goal Plan of Care Note [code = 16677-8] Goal Plan of Care Note [code = 27864-5] Goal Plan of Care Note [code = 94165-6] Goal Plan of Care Note [code = 25673-1] Goal Plan of Care Note [code = 76221-9] Goal Plan of Care Note [code = 47291-9] Goal Plan of Care Note [code = 00397-8] Goal Plan of Care Note [code = 79069-3] Goal Plan of Care Note [code = 98547-8] Goal Plan of Care Note [code = 82297-0] Goal Plan of Care Note [code = 77447-7] Goal Plan of Care Note [code = 09615-0] Goal Plan of Care Note [code = 34424-5] Goal Plan of Care Note [code = 28090-1] Goal Plan of Care Note [code = 52389-3] Goal Plan of Care Note [code = 40820-0] Goal Plan of Care Note [code = 59040-2] Goal Plan of Care Note [code = 87964-5] Goal Plan of Care Note [code = 27404-2] Goal Plan of Care Note [code = 39471-1] Goal Plan of Care Note [code = 96596-1] Goal Plan of Care Note [code = 77240-5] Goal Plan of Care Note [code = 14474-1] Goal Plan of Care Note [code = 34401-4] Goal Plan of Care Note [code = 80720-8] Goal Plan of Care Note [code = 67491-1] Goal Plan of Care Note [code = 81925-0] Goal Plan of Care Note [code = 66117-7] Goal Plan of Care Note [code = 74846-9] Goal Plan of Care Note [code = 15602-5] Goal Plan of Care Note [code = 95330-3] Goal Plan of Care Note [code = 63081-9] Goal Plan of Care Note [code = 85119-6] Goal Plan of Care Note [code = 72867-7] Goal Plan of Care Note [code = 74637-5] Goal Plan of Care Note [code = 32511-8] Goal Plan of Care Note [code = 03192-9] Goal Plan of Care Note [code = 97308-4] Goal Plan of Care Note [code = 07442-7] Goal Plan of Care Note [code = 40951-0] Goal Plan of Care Note [code = 70273-6] Goal Plan of Care Note [code = 54922-4] Goal Plan of Care Note [code = 34542-1] Goal Plan of Care Note [code = 15834-7] Goal Plan of Care Note [code = 16142-6] Goal Plan of Care Note [code = 36357-6] Goal Plan of Care Note [code = 84813-9] Goal Plan of Care Note [code = 84136-7] Goal Plan of Care Note [code = 06688-3] Goal Plan of Care Note [code = 82953-2] Goal Plan of Care Note [code = 47227-2] Goal Plan of Care Note [code = 60222-1] Goal Plan of Care Note [code = 48229-9] Goal Plan of Care Note [code = 51360-0] Goal Plan of Care Note [code = 98486-4] Goal Plan of Care Note [code = 68439-6] Goal Plan of Care Note [code = 40027-2] Goal Plan of Care Note [code = 50329-1] Goal Plan of Care Note [code = 90802-6] Goal Plan of Care Note [code = 33060-4] Goal Plan of Care Note [code = 10112-1] Goal Plan of Care Note [code = 13750-9] Goal Plan of Care Note [code = 13284-2] Goal Plan of Care Note [code = 15047-2] Goal Plan of Care Note [code = 16612-5] Goal Plan of Care Note [code = 94765-4] Goal Plan of Care Note [code = 24264-2] Goal Plan of Care Note [code = 30022-0] Goal Plan of Care Note [code = 36027-5] Goal Plan of Care Note [code = 01419-3] Goal Plan of Care Note [code = 72143-6] Goal Plan of Care Note [code = 33366-1] Goal Plan of Care Note [code = 41198-7] Goal Plan of Care Note [code = 23272-6] Goal Plan of Care Note [code = 80394-8] Goal Plan of Care Note [code = 31475-8] Goal Plan of Care Note [code = 41899-9] Goal Plan of Care Note [code = 34671-9] Goal Plan of Care Note [code = 07238-8] Goal Plan of Care Note [code = 06783-6] Goal Plan of Care Note [code = 99437-8] Goal Plan of Care Note [code = 37227-0] Goal Plan of Care Note [code = 69733-2] Goal Plan of Care Note [code = 09112-4] Goal Plan of Care Note [code = 32334-0] Goal Plan of Care Note [code = 32269-4] Goal Plan of Care Note [code = 02291-8] Goal Plan of Care Note [code = 45230-9] Goal Plan of Care Note [code = 57984-2] Goal Plan of Care Note [code = 19033-1] Goal Plan of Care Note [code = 23610-7] Goal Plan of Care Note [code = 65578-8] Goal Plan of Care Note [code = 66757-8] Goal Plan of Care Note [code = 52516-8] Goal Plan of Care Note [code = 82167-6] Goal Plan of Care Note [code = 74073-8] Goal Plan of Care Note [code = 73400-1] Goal Plan of Care Note [code = 51962-3] Goal Plan of Care Note [code = 49297-8] Goal Plan of Care Note [code = 06977-7] Goal Plan of Care Note [code = 14501-7] Goal Plan of Care Note [code = 08380-8] Goal Plan of Care Note [code = 93442-5] Goal Plan of Care Note [code = 44744-2] Goal Plan of Care Note [code = 71280-0] Goal Plan of Care Note [code = 58116-0] Goal Plan of Care Note [code = 98391-4] Goal Plan of Care Note [code = 00923-2] Goal Plan of Care Note [code = 85323-5] Goal Plan of Care Note [code = 64951-9] Goal Plan of Care Note [code = 07832-6] Encounters Start End Encounter Admission Attending Care Care Encounter Source Date/Time Date/Time Type Type Clinicians Facility Department ID 2021-06-01 Outpatient [facility] [id number] [place] 01:36:[id number] [facility] 2022-05-24 2022-05-24 Outpatient [facility] [id number] Cristian 10:36:59 10:36:59 [id number] F Jerman 2022-02-11 2022-02-11 Outpatient [facility] [id number] Cristian 09:04:48 09:04:48 1206 F Jerman 2022-02-10 2022-02-10 Outpatient [facility] SFA [id number] Cristian 09:29:34 09:29:34 1205 F Jerman 2022-02-10 2022-02-10 Outpatient [id number] 00:00:00 00:00:00 Visit [id number] 089-4cab-9 -3hu8-d3z [id number] 2022-01-10 2022-01-10 Outpatient [facility] [id number] Cristian 09:16:14 09:16:14 1104 F Jerman 2022-01-10 2022-01-10 Outpatient [id number] 00:00:00 00:00:00 Visit aca9-4c83 [id number]-a -y8ro-wy8 [id number] 2021-12-19 2021-12-19 Outpatient [facility] [id number] Cristian 16:11:31 16:11:31 1013 F Jerman 2021-12-19 2021-12-19 Outpatient [id number]- [id number] 466cae-a 00:00:00 00:00:00 Visit l346-326x 770-441f-a -adae-62b amelia-62bace tmmdx49af fd81af 2021-09-17 2021-09-17 Outpatient [id number]- [id number] x1nfqx-6 00:00:00 00:00:00 Visit 935a-4f50 35a-4f50-b -r12i-s2g 77d-c2ba85 [id number] 2020-08-03 2020-08-03 Outpatient MATT VÁSQUEZ [facility] [id number] Univers 10:00:00 10:00:00 MATT SIMPSON [facility] 2020-07-25 2020-07-25 Orders Doctor FISH [id number] 00:00:00 00:00:00 Only Unassigned, BK [id number] Monette [facility] [id number] 2019-09-26 2019-09-26 Outpatient Bertin KRISHNAMURTHY [facility] [id number] Univers 16:00:00 16:00:00 WALLY [facility] 2018-10-21 2018-10-21 Telephone Gramm, [facility] [id number] 00:00:00 00:00:00 Natacha Nguyen [id number] [place] [id number] [place] [id number] [facility] Building Results Test Description Test Time Test Comments Results Result Comments Source TSH, THIRD GENERATION 2022-05-26 02:57:49 Test Item Value Reference Range Interpretation Comme nts TSH, THIRD GENERATION (test code = 2821) 6.350 UIU/ML 0.400-4.100 H LIPID [id number] 01:09:34 Test Item Value Reference Range Interpretation [...] MOREINFORMATION , SEE CLIENT ANNOUNCE MENT AT [email or web address] [email or web address] [email or web address] LDL/HDL 2.73 RATIO <3.22 [facility] has important (test code = 2238) pathology staff changes effecti ve 05/07/2022. New pathology staff will provide uninter rupted, excellent patie nt care and clinical consultation. S ee URL: [email or web address]. UNLES S OTHERWISE INDIC ATED, ALL TESTING PER FORMED AT CLINICAL [facility] Face++, [place]. [address] [facility] [place] [address] ISIDRA SUH DIRECTOR: Andrew WHITLEY CONNOR NUMBER [id number] CAP ACCREDITATION N O. [id number] HEMOGLOBIN [id number] 03:17:24 Test Item Value Reference Range Interpretation Comments HEMOGLOBIN A1c (test 6.4 % 4.2-5.6 H AMERIC AN DIABETES code = 92357) ASSOCIATION IDELINES FOR HGB A1C: PREDIABETES/INC REASED [...] TESTING OR LABORATORY C ONSULTATION. TSH, THIRD [id number] 05:15:49 Test Item Value Reference Range Interpretation Comments TSH, THIRD GENERATION (test code 2.080 UIU/ML 0.400-4.100 = 2821) HEMOGLOBIN [id number] 03:46:00 Test Item Value Reference Range Interpretation Comments HEMOGLOBIN A1c (test 6.6 % 4.2-5.6 H AMERIC AN DIABETES code = 84469) ASSOCIATION IDELINES FOR HGB A1C: PREDIABETES/INC REASED [...] UNLESS OTHERWIS E INDICATED, ALL TESTING PER [facility] ATCLINICAL PATH [facility], [facility]. [address] [place] [address] LABORATORY DIRE CTOR: DIANA RUSS M.D. ADIIA NUMBER [id number] [facility]. [id number] LIPID [id number] 02:59:52 Test Item Value Reference Range Interpretation [...] MOREINFORMATION , SEE CLIENT ANNOUNCE MENT AT [email or web address] RISK RATIO LDL/HDL 4.02 RATIO <3.22 H (test code = 2238) [id number] 00:00:00 Test Item Value Reference Range Interpretation Comments TSH, THIRD GENERATION (test code 2.080 UIU/ML = 2821) [id number] 00:00:00 Test Item Value Reference Range Interpretation Comments TSH, THIRD GENERATION (test code 2.080 UIU/ML = 2821) [id number] 00:00:00 Test Item Value Reference Range Interpretation Comments TSH, THIRD GENERATION (test code 2.080 UIU/ML = 2821) LIPID [id number] 00:00:00 Test Item Value Reference Range Interpretation Comments CHOLESTEROL (test code = 2210) 292 MG/DL TRIGLYCERIDES (test code = 2232) 184 MG/DL HDL CHOLESTEROL (test code = 2220) 51 MG/DL CALC LDL CHOL (test code = 2237) 205 MG/DL RISK RATIO LDL/HDL (test code = 4.02 RATIO 2238) LIPID [id number] 00:00:00 Test Item Value Reference Range Interpretation Comments CHOLESTEROL (test code = 2210) 292 MG/DL TRIGLYCERIDES (test code = 2232) 184 MG/DL HDL CHOLESTEROL (test code = 2220) 51 MG/DL CALC LDL CHOL (test code = 2237) 205 MG/DL RISK RATIO LDL/HDL (test code = 4.02 RATIO 2238) HEMOGLOBIN [id number] 00:00:00 Test Item Value Reference Range Interpretation Comments HEMOGLOBIN A1c (test code = 15640) 6.6 % HEMOGLOBIN [id number] 00:00:00 Test Item Value Reference Range Interpretation Comments HEMOGLOBIN A1c (test code = 32808) 6.6 % HEMOGLOBIN [id number] 00:00:00 Test Item Value Reference Range Interpretation Comments HEMOGLOBIN A1c (test code = 50755) 6.6 % [id number] 00:00:00 Test Item Value Reference Range Interpretation Comments TSH, THIRD GENERATION (test code 2.080 UIU/ML = 2821) [id number] 00:00:00 Test Item Value Reference Range Interpretation Comments TSH, THIRD GENERATION (test code 2.080 UIU/ML = 2821) [id number] 00:00:00 Test Item Value Reference Range Interpretation Comments TSH, THIRD GENERATION (test code 2.080 UIU/ML = 2821) LIPID [id number] 00:00:00 Test Item Value Reference Range Interpretation Comments CHOLESTEROL (test code = 2210) 292 MG/DL TRIGLYCERIDES (test code = 2232) 184 MG/DL HDL CHOLESTEROL (test code = 2220) 51 MG/DL CALC LDL CHOL (test code = 2237) 205 MG/DL RISK RATIO LDL/HDL (test code = 4.02 RATIO 2238) LIPID [id number] 00:00:00 Test Item Value Reference Range Interpretation Comments CHOLESTEROL (test code = 2210) 292 MG/DL TRIGLYCERIDES (test code = 2232) 184 MG/DL HDL CHOLESTEROL (test code = 2220) 51 MG/DL CALC LDL CHOL (test code = 2237) 205 MG/DL RISK RATIO LDL/HDL (test code = 4.02 RATIO 2238) HEMOGLOBIN [id number] 00:00:00 Test Item Value Reference Range Interpretation Comments HEMOGLOBIN A1c (test code = 67231) 6.6 % HEMOGLOBIN [id number] 00:00:00 Test Item Value Reference Range Interpretation Comments HEMOGLOBIN A1c (test code = 77556) 6.6 % HEMOGLOBIN [id number] 00:00:00 Test Item Value Reference Range Interpretation Comments HEMOGLOBIN A1c (test code = 46355) 6.6 % [id number] 00:00:00 Test Item Value Reference Range Interpretation Comments TSH, THIRD GENERATION (test code 2.080 UIU/ML = 2821) [id number] 00:00:00 Test Item Value Reference Range Interpretation Comments TSH, THIRD GENERATION (test code 2.080 UIU/ML = 2821) LIPID [id number] 00:00:00 Test Item Value Reference Range Interpretation Comments CHOLESTEROL (test code = 2210) 292 MG/DL TRIGLYCERIDES (test code = 2232) 184 MG/DL HDL CHOLESTEROL (test code = 2220) 51 MG/DL CALC LDL CHOL (test code = 2237) 205 MG/DL RISK RATIO LDL/HDL (test code = 4.02 RATIO 2238) HEMOGLOBIN [id number] 00:00:00 Test Item Value Reference Range Interpretation Comments HEMOGLOBIN A1c (test code = 84655) 6.6 % HEMOGLOBIN [id number] 00:00:00 Test Item Value Reference Range Interpretation Comments HEMOGLOBIN A1c (test code = 60106) 6.6 % [id number] 00:00:00 Test Item Value Reference Range Interpretation Comments TSH, THIRD GENERATION (test code 2.080 UIU/ML = 2821) [id number] 00:00:00 Test Item Value Reference Range Interpretation Comments TSH, THIRD GENERATION (test code 2.080 UIU/ML = 2821) [id number] 00:00:00 Test Item Value Reference Range Interpretation Comments TSH, THIRD GENERATION (test code 2.080 UIU/ML = 2821) LIPID [id number] 00:00:00 Test Item Value Reference Range Interpretation Comments CHOLESTEROL (test code = 2210) 292 MG/DL TRIGLYCERIDES (test code = 2232) 184 MG/DL HDL CHOLESTEROL (test code = 2220) 51 MG/DL CALC LDL CHOL (test code = 2237) 205 MG/DL RISK RATIO LDL/HDL (test code = 4.02 RATIO 2238) LIPID [id number] 00:00:00 Test Item Value Reference Range Interpretation Comments CHOLESTEROL (test code = 2210) 292 MG/DL TRIGLYCERIDES (test code = 2232) 184 MG/DL HDL CHOLESTEROL (test code = 2220) 51 MG/DL CALC LDL CHOL (test code = 2237) 205 MG/DL RISK RATIO LDL/HDL (test code = 4.02 RATIO 2238) HEMOGLOBIN [id number] 00:00:00 Test Item Value Reference Range Interpretation Comments HEMOGLOBIN A1c (test code = 39604) 6.6 % HEMOGLOBIN [id number] 00:00:00 Test Item Value Reference Range Interpretation Comments HEMOGLOBIN A1c (test code = 62038) 6.6 % HEMOGLOBIN [id number] 00:00:00 Test Item Value Reference Range Interpretation Comments HEMOGLOBIN A1c (test code = 32529) 6.6 % HEMOGLOBIN [id number] 00:00:00 Test Item Value Reference Range Interpretation Comments HEMOGLOBIN A1c (test code = 01084) 6.8 % HEMOGLOBIN [id number] 00:00:00 Test Item Value Reference Range Interpretation Comments HEMOGLOBIN A1c (test code = 47734) 6.8 % HEMOGLOBIN [id number] 00:00:00 Test Item Value Reference Range Interpretation Comments HEMOGLOBIN A1c (test code = 66373) 6.8 % LIPID [id number] 00:00:00 Test Item Value Reference Range Interpretation Comments CHOLESTEROL (test code = 2210) 303 MG/DL TRIGLYCERIDES (test code = 2232) 191 MG/DL HDL CHOLESTEROL (test code = 2220) 61 MG/DL CALC LDL CHOL (test code = 2237) 205 MG/DL RISK RATIO LDL/HDL (test code = 3.36 RATIO 2238) LIPID [id number] 00:00:00 Test Item Value Reference Range Interpretation Comments CHOLESTEROL (test code = 2210) 303 MG/DL TRIGLYCERIDES (test code = 2232) 191 MG/DL HDL CHOLESTEROL (test code = 2220) 61 MG/DL CALC LDL CHOL (test code = 2237) 205 MG/DL RISK RATIO LDL/HDL (test code = 3.36 RATIO 2238) [id number] 00:00:00 Test Item Value Reference Range Interpretation Comments TSH, THIRD GENERATION (test code 0.769 UIU/ML = 2821) [id number] 00:00:00 Test Item Value Reference Range Interpretation Comments TSH, THIRD GENERATION (test code 0.769 UIU/ML = 2821) [id number] 00:00:00 Test Item Value Reference Range Interpretation Comments TSH, THIRD GENERATION (test code 0.769 UIU/ML = 2821) COMPREHENSIVE METABOLIC [id number] 00:00:00 Test Item Value Reference Range Interpretation Comments GLUCOSE (test code = 2217) 131 MG/DL BUN (test code = 2208) 13 MG/DL CREATININE (test code = 2214) 0.65 MG/DL eGFR AMER. (test code 113 ML/MIN/1.73 = 10253) eGFR NON- AMER. (test 97 ML/MIN/1.73 code = 85891) CALC BUN/CREAT (test code = 20 RATIO [...] code = 2219) 23 U/L COMPREHENSIVE METABOLIC [id number] 00:00:00 Test Item Value Reference Range Interpretation Comments GLUCOSE (test code = 2217) 131 MG/DL BUN (test code = 2208) 13 MG/DL CREATININE (test code = 2214) 0.65 MG/DL eGFR AMER. (test code 113 ML/MIN/1.73 = 49862) eGFR NON- AMER. (test 97 ML/MIN/1.73 code = 95811) CALC BUN/CREAT (test code = 20 RATIO [...] (test code = 2219) 23 U/L HEMOGLOBIN [id number] 00:00:00 Test Item Value Reference Range Interpretation Comments HEMOGLOBIN A1c (test code = 27569) 6.8 % HEMOGLOBIN [id number] 00:00:00 Test Item Value Reference Range Interpretation Comments HEMOGLOBIN A1c (test code = 99431) 6.8 % HEMOGLOBIN [id number] 00:00:00 Test Item Value Reference Range Interpretation Comments HEMOGLOBIN A1c (test code = 85939) 6.8 % LIPID [id number] 00:00:00 Test Item Value Reference Range Interpretation Comments CHOLESTEROL (test code = 2210) 303 MG/DL TRIGLYCERIDES (test code = 2232) 191 MG/DL HDL CHOLESTEROL (test code = 2220) 61 MG/DL CALC LDL CHOL (test code = 2237) 205 MG/DL RISK RATIO LDL/HDL (test code = 3.36 RATIO 2238) LIPID [id number] 00:00:00 Test Item Value Reference Range Interpretation Comments CHOLESTEROL (test code = 2210) 303 MG/DL TRIGLYCERIDES (test code = 2232) 191 MG/DL HDL CHOLESTEROL (test code = 2220) 61 MG/DL CALC LDL CHOL (test code = 2237) 205 MG/DL RISK RATIO LDL/HDL (test code = 3.36 RATIO 2238) [id number] 00:00:00 Test Item Value Reference Range Interpretation Comments TSH, THIRD GENERATION (test code 0.769 UIU/ML = 2821) [id number] 00:00:00 Test Item Value Reference Range Interpretation Comments TSH, THIRD GENERATION (test code 0.769 UIU/ML = 2821) [id number] 00:00:00 Test Item Value Reference Range Interpretation Comments TSH, THIRD GENERATION (test code 0.769 UIU/ML = 2821) COMPREHENSIVE METABOLIC [id number] 00:00:00 Test Item Value Reference Range Interpretation Comments GLUCOSE (test code = 2217) 131 MG/DL BUN (test code = 2208) 13 MG/DL CREATININE (test code = 2214) 0.65 MG/DL eGFR AMER. (test code 113 ML/MIN/1.73 = 82039) eGFR NON- AMER. (test 97 ML/MIN/1.73 code = 54423) CALC BUN/CREAT (test code = 20 RATIO [...] code = 2219) 23 U/L COMPREHENSIVE METABOLIC [id number] 00:00:00 Test Item Value Reference Range Interpretation Comments GLUCOSE (test code = 2217) 131 MG/DL BUN (test code = 2208) 13 MG/DL CREATININE (test code = 2214) 0.65 MG/DL eGFR AMER. (test code 113 ML/MIN/1.73 = 67209) eGFR NON- AMER. (test 97 ML/MIN/1.73 code = 52456) CALC BUN/CREAT (test code = 20 RATIO [...] (test code = 2219) 23 U/L HEMOGLOBIN [id number] 00:00:00 Test Item Value Reference Range Interpretation Comments HEMOGLOBIN A1c (test code = 94673) 6.8 % HEMOGLOBIN [id number] 00:00:00 Test Item Value Reference Range Interpretation Comments HEMOGLOBIN A1c (test code = 05993) 6.8 % LIPID [id number] 00:00:00 Test Item Value Reference Range Interpretation Comments CHOLESTEROL (test code = 2210) 303 MG/DL TRIGLYCERIDES (test code = 2232) 191 MG/DL HDL CHOLESTEROL (test code = 2220) 61 MG/DL CALC LDL CHOL (test code = 2237) 205 MG/DL RISK RATIO LDL/HDL (test code = 3.36 RATIO 2238) [id number] 00:00:00 Test Item Value Reference Range Interpretation Comments TSH, THIRD GENERATION (test code 0.769 UIU/ML = 2821) [id number] 00:00:00 Test Item Value Reference Range Interpretation Comments TSH, THIRD GENERATION (test code 0.769 UIU/ML = 2821) COMPREHENSIVE METABOLIC [id number] 00:00:00 Test Item Value Reference Range Interpretation Comments GLUCOSE (test code = 2217) 131 MG/DL BUN (test code = 2208) 13 MG/DL CREATININE (test code = 2214) 0.65 MG/DL eGFR AMER. (test code 113 ML/MIN/1.73 = 86009) eGFR NON- AMER. (test 97 ML/MIN/1.73 code = 56517) CALC BUN/CREAT (test code = 20 RATIO [...] (test code = 2219) 23 U/L HEMOGLOBIN [id number] 00:00:00 Test Item Value Reference Range Interpretation Comments HEMOGLOBIN A1c (test code = 16132) 6.8 % HEMOGLOBIN [id number] 00:00:00 Test Item Value Reference Range Interpretation Comments HEMOGLOBIN A1c (test code = 35499) 6.8 % HEMOGLOBIN [id number] 00:00:00 Test Item Value Reference Range Interpretation Comments HEMOGLOBIN A1c (test code = 82932) 6.8 % LIPID [id number] 00:00:00 Test Item Value Reference Range Interpretation Comments CHOLESTEROL (test code = 2210) 303 MG/DL TRIGLYCERIDES (test code = 2232) 191 MG/DL HDL CHOLESTEROL (test code = 2220) 61 MG/DL CALC LDL CHOL (test code = 2237) 205 MG/DL RISK RATIO LDL/HDL (test code = 3.36 RATIO 2238) LIPID [id number] 00:00:00 Test Item Value Reference Range Interpretation Comments CHOLESTEROL (test code = 2210) 303 MG/DL TRIGLYCERIDES (test code = 2232) 191 MG/DL HDL CHOLESTEROL (test code = 2220) 61 MG/DL CALC LDL CHOL (test code = 2237) 205 MG/DL RISK RATIO LDL/HDL (test code = 3.36 RATIO 2238) [id number] 00:00:00 Test Item Value Reference Range Interpretation Comments TSH, THIRD GENERATION (test code 0.769 UIU/ML = 2821) [id number] 00:00:00 Test Item Value Reference Range Interpretation Comments TSH, THIRD GENERATION (test code 0.769 UIU/ML = 2821) [id number] 00:00:00 Test Item Value Reference Range Interpretation Comments TSH, THIRD GENERATION (test code 0.769 UIU/ML = 2821) COMPREHENSIVE METABOLIC [id number] 00:00:00 Test Item Value Reference Range Interpretation Comments GLUCOSE (test code = 2217) 131 MG/DL BUN (test code = 2208) 13 MG/DL CREATININE (test code = 2214) 0.65 MG/DL eGFR AMER. (test code 113 ML/MIN/1.73 = 53527) eGFR NON- AMER. (test 97 ML/MIN/1.73 code = 37981) CALC BUN/CREAT (test code = 20 RATIO [...] code = 2219) 23 U/L COMPREHENSIVE METABOLIC [id number] 00:00:00 Test Item Value Reference Range Interpretation Comments GLUCOSE (test code = 2217) 131 MG/DL BUN (test code = 2208) 13 MG/DL CREATININE (test code = 2214) 0.65 MG/DL eGFR AMER. (test code 113 ML/MIN/1.73 = 61613) eGFR NON- AMER. (test 97 ML/MIN/1.73 code = 90167) CALC BUN/CREAT (test code = 20 RATIO [...] (test code = 2219) 23 U/L HEMOGLOBIN [id number] 00:00:00 Test Item Value Reference Range Interpretation Comments HEMOGLOBIN A1c (test code = 33709) 6.6 % HEMOGLOBIN [id number] 00:00:00 Test Item Value Reference Range Interpretation Comments HEMOGLOBIN A1c (test code = 69386) 6.6 % HEMOGLOBIN [id number] 00:00:00 Test Item Value Reference Range Interpretation Comments HEMOGLOBIN A1c (test code = 94863) 6.6 % LIPID [id number] 00:00:00 Test Item Value Reference Range Interpretation Comments CHOLESTEROL (test code = 2210) 261 MG/DL TRIGLYCERIDES (test code = 2232) 159 MG/DL HDL CHOLESTEROL (test code = 2220) 82 MG/DL CALC LDL CHOL (test code = 2237) 150 MG/DL RISK RATIO LDL/HDL (test code = 1.83 RATIO 2238) LIPID [id number] 00:00:00 Test Item Value Reference Range Interpretation Comments CHOLESTEROL (test code = 2210) 261 MG/DL TRIGLYCERIDES (test code = 2232) 159 MG/DL HDL CHOLESTEROL (test code = 2220) 82 MG/DL CALC LDL CHOL (test code = 2237) 150 MG/DL RISK RATIO LDL/HDL (test code = 1.83 RATIO 2238) COMPREHENSIVE METABOLIC [id number] 00:00:00 Test Item Value Reference Range Interpretation Comments GLUCOSE (test code = 2217) 144 MG/DL BUN (test code = 2208) 15 MG/DL CREATININE (test code = 2214) 0.85 MG/DL eGFR AMER. (test code 87 ML/MIN/1.73 = 89967) eGFR NON- AMER. (test 75 ML/MIN/1.73 code = 10504) CALC BUN/CREAT (test code = 18 RATIO [...] code = 2219) 50 U/L COMPREHENSIVE METABOLIC [id number] 00:00:00 Test Item Value Reference Range Interpretation Comments GLUCOSE (test code = 2217) 144 MG/DL BUN (test code = 2208) 15 MG/DL CREATININE (test code = 2214) 0.85 MG/DL eGFR AMER. (test code 87 ML/MIN/1.73 = 95363) eGFR NON- AMER. (test 75 ML/MIN/1.73 code = 99117) CALC BUN/CREAT (test code = 18 RATIO [...] THYROX. BIND. CAPAC. (test code 1.1 = 41193) T4 (THYROXINE) (test code = 4.3 UG/DL 281) CORRECTED T4 (FTI) (test code = 3.9 UG/DL 2820) TSH, THIRD GENERATION (test 18.900 UIU/ML code = 2821) THYROID II PROFILE (T3U, T4, T7, TSH)[id number] 00:00:00 Test Item Value Reference Range Interpretation Comments T-UPTAKE (test code = 2816) 30.2 % THYROX. BIND. CAPAC. (test code 1.1 = 60767) T4 (THYROXINE) (test code = 4.3 UG/DL 2819) CORRECTED T4 (FTI) (test code = 3.9 UG/DL 2820) TSH, THIRD GENERATION (test 18.900 UIU/ML code = 2821) HEMOGLOBIN [id number] 00:00:00 Test Item Value Reference Range Interpretation Comments HEMOGLOBIN A1c (test code = 93086) 6.6 % HEMOGLOBIN [id number] 00:00:00 Test Item Value Reference Range Interpretation Comments HEMOGLOBIN A1c (test code = 74360) 6.6 % HEMOGLOBIN [id number] 00:00:00 Test Item Value Reference Range Interpretation Comments HEMOGLOBIN A1c (test code = 87153) 6.6 % LIPID [id number] 00:00:00 Test Item Value Reference Range Interpretation Comments CHOLESTEROL (test code = 2210) 261 MG/DL TRIGLYCERIDES (test code = 2232) 159 MG/DL HDL CHOLESTEROL (test code = 2220) 82 MG/DL CALC LDL CHOL (test code = 2237) 150 MG/DL RISK RATIO LDL/HDL (test code = 1.83 RATIO 2238) LIPID [id number] 00:00:00 Test Item Value Reference Range Interpretation Comments CHOLESTEROL (test code = 2210) 261 MG/DL TRIGLYCERIDES (test code = 2232) 159 MG/DL HDL CHOLESTEROL (test code = 2220) 82 MG/DL CALC LDL CHOL (test code = 2237) 150 MG/DL RISK RATIO LDL/HDL (test code = 1.83 RATIO 2238) COMPREHENSIVE METABOLIC [id number] 00:00:00 Test Item Value Reference Range Interpretation Comments GLUCOSE (test code = 2217) 144 MG/DL BUN (test code = 2208) 15 MG/DL CREATININE (test code = 2214) 0.85 MG/DL eGFR AMER. (test code 87 ML/MIN/1.73 = 63881) eGFR NON- AMER. (test 75 ML/MIN/1.73 code = 69103) CALC BUN/CREAT (test code = 18 RATIO [...] code = 2219) 50 U/L COMPREHENSIVE METABOLIC [id number] 00:00:00 Test Item Value Reference Range Interpretation Comments GLUCOSE (test code = 2217) 144 MG/DL BUN (test code = 2208) 15 MG/DL CREATININE (test code = 2214) 0.85 MG/DL eGFR AMER. (test code 87 ML/MIN/1.73 = 16636) eGFR NON- AMER. (test 75 ML/MIN/1.73 code = 90933) CALC BUN/CREAT (test code = 18 RATIO [...] THYROX. BIND. CAPAC. (test code 1.1 = 91859) T4 (THYROXINE) (test code = 4.3 UG/DL [...] (test 18.900 UIU/ML code = 2821) HEMOGLOBIN [id number] 00:00:00 Test Item Value Reference Range Interpretation Comments HEMOGLOBIN A1c (test code = 09493) 6.6 % HEMOGLOBIN [id number] 00:00:00 Test Item Value Reference Range Interpretation Comments HEMOGLOBIN A1c (test code = 04405) 6.6 % LIPID [id number] 00:00:00 Test Item Value Reference Range Interpretation Comments CHOLESTEROL (test code = 2210) 261 MG/DL TRIGLYCERIDES (test code = 2232) 159 MG/DL HDL CHOLESTEROL (test code = 2220) 82 MG/DL CALC LDL CHOL (test code = 2237) 150 MG/DL RISK RATIO LDL/HDL (test code = 1.83 RATIO 2238) COMPREHENSIVE METABOLIC [id number] 00:00:00 Test Item Value Reference Range Interpretation Comments GLUCOSE (test code = 2217) 144 MG/DL BUN (test code = 2208) 15 MG/DL CREATININE (test code = 2214) 0.85 MG/DL eGFR AMER. (test code 87 ML/MIN/1.73 = 00327) eGFR NON- AMER. (test 75 ML/MIN/1.73 code = 04206) CALC BUN/CREAT (test code = 18 RATIO [...] THYROX. BIND. CAPAC. (test code 1.1 = 17445) T4 (THYROXINE) (test code = 4.3 UG/DL 2819) CORRECTED T4 (FTI) (test code = 3.9 UG/DL 2820) TSH, THIRD GENERATION (test 18.900 UIU/ML code = 2821) HEMOGLOBIN [id number] 00:00:00 Test Item Value Reference Range Interpretation Comments HEMOGLOBIN A1c (test code = 59739) 6.6 % HEMOGLOBIN [id number] 00:00:00 Test Item Value Reference Range Interpretation Comments HEMOGLOBIN A1c (test code = 25226) 6.6 % HEMOGLOBIN [id number] 00:00:00 Test Item Value Reference Range Interpretation Comments HEMOGLOBIN A1c (test code = 36553) 6.6 % LIPID [id number] 00:00:00 Test Item Value Reference Range Interpretation Comments CHOLESTEROL (test code = 2210) 261 MG/DL TRIGLYCERIDES (test code = 2232) 159 MG/DL HDL CHOLESTEROL (test code = 2220) 82 MG/DL CALC LDL CHOL (test code = 2237) 150 MG/DL RISK RATIO LDL/HDL (test code = 1.83 RATIO 2238) LIPID [id number] 00:00:00 Test Item Value Reference Range Interpretation Comments CHOLESTEROL (test code = 2210) 261 MG/DL TRIGLYCERIDES (test code = 2232) 159 MG/DL HDL CHOLESTEROL (test code = 2220) 82 MG/DL CALC LDL CHOL (test code = 2237) 150 MG/DL RISK RATIO LDL/HDL (test code = 1.83 RATIO 2238) COMPREHENSIVE METABOLIC [id number] 00:00:00 Test Item Value Reference Range Interpretation Comments GLUCOSE (test code = 2217) 144 MG/DL BUN (test code = 2208) 15 MG/DL CREATININE (test code = 2214) 0.85 MG/DL eGFR AMER. (test code 87 ML/MIN/1.73 = 11643) eGFR NON- AMER. (test 75 ML/MIN/1.73 code = 43073) CALC BUN/CREAT (test code = 18 RATIO [...] code = 2219) 50 U/L COMPREHENSIVE METABOLIC [id number] 00:00:00 Test Item Value Reference Range Interpretation Comments GLUCOSE (test code = 2217) 144 MG/DL BUN (test code = 2208) 15 MG/DL CREATININE (test code = 2214) 0.85 MG/DL eGFR AMER. (test code 87 ML/MIN/1.73 = 38459) eGFR NON- AMER. (test 75 ML/MIN/1.73 code = 80067) CALC BUN/CREAT (test code = 18 RATIO [...] THYROX. BIND. CAPAC. (test code 1.1 = 51416) T4 (THYROXINE) (test code = 4.3 UG/DL 2819) CORRECTED T4 (FTI) (test code = 3.9 UG/DL 2820) TSH, THIRD GENERATION (test 18.900 UIU/ML code = 2821) THYROID II PROFILE (T3U, T4, T7, TSH)[id number] 00:00:00 Test Item Value Reference Range Interpretation Comments T-UPTAKE (test code = 2817) 30.2 % THYROX. BIND. CAPAC. (test code 1.1 = 70203) T4 (THYROXINE) (test code = 4.3 UG/DL 2819) CORRECTED T4 (FTI) (test code = 3.9 UG/DL 2820) TSH, THIRD GENERATION (test 18.900 UIU/ML code = 2821) HEMOGLOBIN [id number] 00:00:00 Test Item Value Reference Range Interpretation Comments HEMOGLOBIN A1c (test code = 78282) 6.7 % HEMOGLOBIN [id number] 00:00:00 Test Item Value Reference Range Interpretation Comments HEMOGLOBIN A1c (test code = 50608) 6.7 % HEMOGLOBIN [id number] 00:00:00 Test Item Value Reference Range Interpretation Comments HEMOGLOBIN A1c (test code = 60833) 6.7 % LIPID [id number] 00:00:00 Test Item Value Reference Range Interpretation Comments CHOLESTEROL (test code = 2210) 267 MG/DL TRIGLYCERIDES (test code = 2232) 137 MG/DL HDL CHOLESTEROL (test code = 2220) 48 MG/DL CALC LDL CHOL (test code = 2237) 192 MG/DL RISK RATIO LDL/HDL (test code = 4.00 RATIO 2238) LIPID [id number] 00:00:00 Test Item Value Reference Range Interpretation Comments CHOLESTEROL (test code = 2210) 267 MG/DL TRIGLYCERIDES (test code = 2232) 137 MG/DL HDL CHOLESTEROL (test code = 2220) 48 MG/DL CALC LDL CHOL (test code = 2237) 192 MG/DL RISK RATIO LDL/HDL (test code = 4.00 RATIO 2238) COMPREHENSIVE METABOLIC [id number] 00:00:00 Test Item Value Reference Range Interpretation Comments GLUCOSE (test code = 2217) 155 MG/DL BUN (test code = 2208) 14 MG/DL CREATININE (test code = 2214) 0.52 MG/DL eGFR AMER. (test code 122 ML/MIN/1.73 = 10416) eGFR NON- AMER. (test 105 ML/MIN/1.73 code = 56447) CALC BUN/CREAT (test code = 27 RATIO [...] code = 2219) 27 U/L COMPREHENSIVE METABOLIC [id number] 00:00:00 Test Item Value Reference Range Interpretation Comments GLUCOSE (test code = 2217) 155 MG/DL BUN (test code = 2208) 14 MG/DL CREATININE (test code = 2214) 0.52 MG/DL eGFR AMER. (test code 122 ML/MIN/1.73 = 33555) eGFR NON- AMER. (test 105 ML/MIN/1.73 code = 90730) CALC BUN/CREAT (test code = 27 RATIO [...] THYROX. BIND. CAPAC. (test code 1.0 = 25549) T4 (THYROXINE) (test code = 4.7 UG/DL 2819) CORRECTED T4 (FTI) (test code = 4.7 UG/DL 2820) TSH, THIRD GENERATION (test code 0.201 UIU/ML = 2821) THYROID II PROFILE (T3U, T4, T7, TSH)2019 00:00:00 Test Item Value Reference Range Interpretation Comments T-UPTAKE (test code = 2816) 33.1 % THYROX. BIND. CAPAC. (test code 1.0 = 39588) T4 (THYROXINE) (test code = 4.7 UG/DL 2819) CORRECTED T4 (FTI) (test code = 4.7 UG/DL 2820) TSH, THIRD GENERATION (test code 0.201 UIU/ML = 2821) HEMOGLOBIN [id number] 00:00:00 Test Item Value Reference Range Interpretation Comments HEMOGLOBIN A1c (test code = 37914) 6.7 % HEMOGLOBIN [id number] 00:00:00 Test Item Value Reference Range Interpretation Comments HEMOGLOBIN A1c (test code = 38220) 6.7 % HEMOGLOBIN [id number] 00:00:00 Test Item Value Reference Range Interpretation Comments HEMOGLOBIN A1c (test code = 59774) 6.7 % LIPID [id number] 00:00:00 Test Item Value Reference Range Interpretation Comments CHOLESTEROL (test code = 2210) 267 MG/DL TRIGLYCERIDES (test code = 2232) 137 MG/DL HDL CHOLESTEROL (test code = 2220) 48 MG/DL CALC LDL CHOL (test code = 2237) 192 MG/DL RISK RATIO LDL/HDL (test code = 4.00 RATIO 2238) LIPID [id number] 00:00:00 Test Item Value Reference Range Interpretation Comments CHOLESTEROL (test code = 2210) 267 MG/DL TRIGLYCERIDES (test code = 2232) 137 MG/DL HDL CHOLESTEROL (test code = 2220) 48 MG/DL CALC LDL CHOL (test code = 2237) 192 MG/DL RISK RATIO LDL/HDL (test code = 4.00 RATIO 2238) COMPREHENSIVE METABOLIC [id number] 00:00:00 Test Item Value Reference Range Interpretation Comments GLUCOSE (test code = 2217) 155 MG/DL BUN (test code = 2208) 14 MG/DL CREATININE (test code = 2214) 0.52 MG/DL eGFR AMER. (test code 122 ML/MIN/1.73 = 30041) eGFR NON- AMER. (test 105 ML/MIN/1.73 code = 89536) CALC BUN/CREAT (test code = 27 RATIO [...] code = 2219) 27 U/L COMPREHENSIVE METABOLIC [id number] 00:00:00 Test Item Value Reference Range Interpretation Comments GLUCOSE (test code = 2217) 155 MG/DL BUN (test code = 2208) 14 MG/DL CREATININE (test code = 2214) 0.52 MG/DL eGFR AMER. (test code 122 ML/MIN/1.73 = 54977) eGFR NON- AMER. (test 105 ML/MIN/1.73 code = 47948) CALC BUN/CREAT (test code = 27 RATIO [...] THYROX. BIND. CAPAC. (test code 1.0 = 53864) T4 (THYROXINE) (test code = 4.7 UG/DL 2819) CORRECTED T4 (FTI) (test code = 4.7 UG/DL 2820) TSH, THIRD GENERATION (test code 0.201 UIU/ML = 2821) THYROID II PROFILE (T3U, T4, T7, TSH)2019 00:00:00 Test Item Value Reference Range Interpretation Comments T-UPTAKE (test code = 2817) 33.1 % THYROX. BIND. CAPAC. (test code 1.0 = 01264) T4 (THYROXINE) (test code = 4.7 UG/DL 2819) CORRECTED T4 (FTI) (test code = 4.7 UG/DL 2820) TSH, THIRD GENERATION (test code 0.201 UIU/ML = 2821) HEMOGLOBIN [id number] 00:00:00 Test Item Value Reference Range Interpretation Comments HEMOGLOBIN A1c (test code = 35143) 6.7 % HEMOGLOBIN [id number] 00:00:00 Test Item Value Reference Range Interpretation Comments HEMOGLOBIN A1c (test code = 27736) 6.7 % LIPID [id number] 00:00:00 Test Item Value Reference Range Interpretation Comments CHOLESTEROL (test code = 2210) 267 MG/DL TRIGLYCERIDES (test code = 2232) 137 MG/DL HDL CHOLESTEROL (test code = 2220) 48 MG/DL CALC LDL CHOL (test code = 2237) 192 MG/DL RISK RATIO LDL/HDL (test code = 4.00 RATIO 2238) COMPREHENSIVE METABOLIC [id number] 00:00:00 Test Item Value Reference Range Interpretation Comments GLUCOSE (test code = 2217) 155 MG/DL BUN (test code = 2208) 14 MG/DL CREATININE (test code = 2214) 0.52 MG/DL eGFR AMER. (test code 122 ML/MIN/1.73 = 12590) eGFR NON- AMER. (test 105 ML/MIN/1.73 code = 09209) CALC BUN/CREAT (test code = 27 RATIO [...] THYROX. BIND. CAPAC. (test code 1.0 = 80892) T4 (THYROXINE) (test code = 4.7 UG/DL 2819) CORRECTED T4 (FTI) (test code = 4.7 UG/DL 2820) TSH, THIRD GENERATION (test code 0.201 UIU/ML = 2821) HEMOGLOBIN [id number] 00:00:00 Test Item Value Reference Range Interpretation Comments HEMOGLOBIN A1c (test code = 85139) 6.7 % HEMOGLOBIN [id number] 00:00:00 Test Item Value Reference Range Interpretation Comments HEMOGLOBIN A1c (test code = 12724) 6.7 % HEMOGLOBIN [id number] 00:00:00 Test Item Value Reference Range Interpretation Comments HEMOGLOBIN A1c (test code = 85970) 6.7 % LIPID [id number] 00:00:00 Test Item Value Reference Range Interpretation Comments CHOLESTEROL (test code = 2210) 267 MG/DL TRIGLYCERIDES (test code = 2232) 137 MG/DL HDL CHOLESTEROL (test code = 2220) 48 MG/DL CALC LDL CHOL (test code = 2237) 192 MG/DL RISK RATIO LDL/HDL (test code = 4.00 RATIO 2238) LIPID [id number] 00:00:00 Test Item Value Reference Range Interpretation Comments CHOLESTEROL (test code = 2210) 267 MG/DL TRIGLYCERIDES (test code = 2232) 137 MG/DL HDL CHOLESTEROL (test code = 2220) 48 MG/DL CALC LDL CHOL (test code = 2237) 192 MG/DL RISK RATIO LDL/HDL (test code = 4.00 RATIO 2238) COMPREHENSIVE METABOLIC [id number] 00:00:00 Test Item Value Reference Range Interpretation Comments GLUCOSE (test code = 2217) 155 MG/DL BUN (test code = 2208) 14 MG/DL CREATININE (test code = 2214) 0.52 MG/DL eGFR AMER. (test code 122 ML/MIN/1.73 = 40498) eGFR NON- AMER. (test 105 ML/MIN/1.73 code = 63596) CALC BUN/CREAT (test code = 27 RATIO [...] code = 2219) 27 U/L COMPREHENSIVE METABOLIC [id number] 00:00:00 Test Item Value Reference Range Interpretation Comments GLUCOSE (test code = 2217) 155 MG/DL BUN (test code = 2208) 14 MG/DL CREATININE (test code = 2214) 0.52 MG/DL eGFR AMER. (test code 122 ML/MIN/1.73 = 29242) eGFR NON- AMER. (test 105 ML/MIN/1.73 code = 42439) CALC BUN/CREAT (test code = 27 RATIO [...] THYROX. BIND. CAPAC. (test code 1.0 = 39976) T4 (THYROXINE) (test code = 4.7 UG/DL 2819) CORRECTED T4 (FTI) (test code = 4.7 UG/DL 2820) TSH, THIRD GENERATION (test code 0.201 UIU/ML = 2821) THYROID II PROFILE (T3U, T4, T7, TSH)2019 00:00:00 Test Item Value Reference Range Interpretation Comments T-UPTAKE (test code = 2817) 33.1 % THYROX. BIND. CAPAC. (test code 1.0 = 03076) T4 (THYROXINE) (test code = 4.7 UG/DL 2819) CORRECTED T4 (FTI) (test code = 4.7 UG/DL 2820) TSH, THIRD GENERATION (test code 0.201 UIU/ML = 2821) SARS-CoV-2 (COVID-19) by RT-PCR (HIGH RISK)2019-09-18 00:00:00 Test Item Value Reference Range Interpretation Comments SARS-CoV-2 INTERPRETATION (test NEGATIVE code = 54810) SOURCE (test code = 30387) NOT SPECIFIED SARS-CoV-2 (COVID-19) by RT-PCR (HIGH RISK)2019-09-18 00:00:00 Test Item Value Reference Range Interpretation Comments SARS-CoV-2 INTERPRETATION (test NEGATIVE code = 81879) SOURCE (test code = 33044) NOT SPECIFIED SARS-CoV-2 (COVID-19) by RT-PCR (HIGH RISK)2019-09-18 00:00:00 Test Item Value Reference Range Interpretation Comments SARS-CoV-2 INTERPRETATION (test NEGATIVE code = 40195) SOURCE (test code = 14689) NOT SPECIFIED SARS-CoV-2 (COVID-19) by RT-PCR (HIGH RISK)2019-09-18 00:00:00 Test Item Value Reference Range Interpretation Comments SARS-CoV-2 INTERPRETATION (test NEGATIVE code = 67297) SOURCE (test code = 08268) NOT SPECIFIED SARS-CoV-2 (COVID-19) by RT-PCR (HIGH RISK)2019-09-18 00:00:00 Test Item Value Reference Range Interpretation Comments SARS-CoV-2 INTERPRETATION (test NEGATIVE code = 32611) SOURCE (test code = 23490) NOT SPECIFIED SARS-CoV-2 (COVID-19) by RT-PCR (HIGH RISK)2019-09-18 00:00:00 Test Item Value Reference Range Interpretation Comments SARS-CoV-2 INTERPRETATION (test NEGATIVE code = 09343) SOURCE (test code = 99344) NOT SPECIFIED SARS-CoV-2 (COVID-19) by RT-PCR (HIGH RISK)2019-09-18 00:00:00 Test Item Value Reference Range Interpretation Comments SARS-CoV-2 INTERPRETATION (test NEGATIVE code = 31557) SOURCE (test code = 35410) NOT SPECIFIED [id number] 00:00:00 Test Item Value Reference Range Interpretation Comments TSH, THIRD GENERATION (test code 2.490 UIU/ML = 2821) [id number] 00:00:00 Test Item Value Reference Range Interpretation Comments TSH, THIRD GENERATION (test code 2.490 UIU/ML = 2821) [id number] 00:00:00 Test Item Value Reference Range Interpretation Comments TSH, THIRD GENERATION (test code 2.490 UIU/ML = 2821) HEMOGLOBIN [id number] 00:00:00 Test Item Value Reference Range Interpretation Comments HEMOGLOBIN A1c (test code = 56522) 6.4 % HEMOGLOBIN [id number] 00:00:00 Test Item Value Reference Range Interpretation Comments HEMOGLOBIN A1c (test code = 87152) 6.4 % HEMOGLOBIN [id number] 00:00:00 Test Item Value Reference Range Interpretation Comments HEMOGLOBIN A1c (test code = 04931) 6.4 % COMPREHENSIVE METABOLIC [id number] 00:00:00 Test Item Value Reference Range Interpretation Comments GLUCOSE (test code = 2217) 206 MG/DL BUN (test code = 2208) 23 MG/DL CREATININE (test code = 2214) 0.67 MG/DL eGFR AMER. (test code 112 ML/MIN/1.73 = 78660) eGFR NON- AMER. (test 97 ML/MIN/1.73 code = 70722) CALC BUN/CREAT (test code = 34 RATIO [...] code = 2219) 25 U/L COMPREHENSIVE METABOLIC [id number] 00:00:00 Test Item Value Reference Range Interpretation Comments GLUCOSE (test code = 2217) 206 MG/DL BUN (test code = 2208) 23 MG/DL CREATININE (test code = 2214) 0.67 MG/DL eGFR AMER. (test code 112 ML/MIN/1.73 = 41673) eGFR NON- AMER. (test 97 ML/MIN/1.73 code = 24792) CALC BUN/CREAT (test code = 34 RATIO [...] ALT (test code = 2219) 25 U/L [id number] 00:00:00 Test Item Value Reference Range Interpretation Comments TSH, THIRD GENERATION (test code 2.490 UIU/ML = 2821) [id number] 00:00:00 Test Item Value Reference Range Interpretation Comments TSH, THIRD GENERATION (test code 2.490 UIU/ML = 2821) [id number] 00:00:00 Test Item Value Reference Range Interpretation Comments TSH, THIRD GENERATION (test code 2.490 UIU/ML = 2821) HEMOGLOBIN [id number] 00:00:00 Test Item Value Reference Range Interpretation Comments HEMOGLOBIN A1c (test code = 05322) 6.4 % HEMOGLOBIN [id number] 00:00:00 Test Item Value Reference Range Interpretation Comments HEMOGLOBIN A1c (test code = 29693) 6.4 % HEMOGLOBIN [id number] 00:00:00 Test Item Value Reference Range Interpretation Comments HEMOGLOBIN A1c (test code = 42886) 6.4 % COMPREHENSIVE METABOLIC [id number] 00:00:00 Test Item Value Reference Range Interpretation Comments GLUCOSE (test code = 2217) 206 MG/DL BUN (test code = 2208) 23 MG/DL CREATININE (test code = 2214) 0.67 MG/DL eGFR AMER. (test code 112 ML/MIN/1.73 = 42737) eGFR NON- AMER. (test 97 ML/MIN/1.73 code = 68724) CALC BUN/CREAT (test code = 34 RATIO [...] code = 2219) 25 U/L COMPREHENSIVE METABOLIC [id number] 00:00:00 Test Item Value Reference Range Interpretation Comments GLUCOSE (test code = 2217) 206 MG/DL BUN (test code = 2208) 23 MG/DL CREATININE (test code = 2214) 0.67 MG/DL eGFR AMER. (test code 112 ML/MIN/1.73 = 41044) eGFR NON- AMER. (test 97 ML/MIN/1.73 code = 75878) CALC BUN/CREAT (test code = 34 RATIO 2235) SODIUM (test code = 2231) 142 MEQ/L POTASSIUM (test code = 2228) 4.1 MEQ/L CHLORIDE (test code = 2215) 99 MEQ/L CARBON DIOXIDE (test code = 28 MEQ/L 2206) CALCIUM (test code = 220) 8.8 MG/DL PROTEIN, TOTAL (test code = [...] ALT (test code = 2219) 25 U/L [id number] 00:00:00 Test Item Value Reference Range Interpretation Comments TSH, THIRD GENERATION (test code 2.490 UIU/ML = 2821) [id number] 00:00:00 Test Item Value Reference Range Interpretation Comments TSH, THIRD GENERATION (test code 2.490 UIU/ML = 2821) HEMOGLOBIN [id number] 00:00:00 Test Item Value Reference Range Interpretation Comments HEMOGLOBIN A1c (test code = 47223) 6.4 % HEMOGLOBIN [id number] 00:00:00 Test Item Value Reference Range Interpretation Comments HEMOGLOBIN A1c (test code = 41889) 6.4 % COMPREHENSIVE METABOLIC [id number] 00:00:00 Test Item Value Reference Range Interpretation Comments GLUCOSE (test code = 2217) 206 MG/DL BUN (test code = 2208) 23 MG/DL CREATININE (test code = 2214) 0.67 MG/DL eGFR AMER. (test code 112 ML/MIN/1.73 = 03774) eGFR NON- AMER. (test 97 ML/MIN/1.73 code = 38883) CALC BUN/CREAT (test code = 34 RATIO [...] ALT (test code = 2219) 25 U/L [id number] 00:00:00 Test Item Value Reference Range Interpretation Comments TSH, THIRD GENERATION (test code 2.490 UIU/ML = 2821) [id number] 00:00:00 Test Item Value Reference Range Interpretation Comments TSH, THIRD GENERATION (test code 2.490 UIU/ML = 2821) [id number] 00:00:00 Test Item Value Reference Range Interpretation Comments TSH, THIRD GENERATION (test code 2.490 UIU/ML = 2821) HEMOGLOBIN [id number] 00:00:00 Test Item Value Reference Range Interpretation Comments HEMOGLOBIN A1c (test code = 22879) 6.4 % HEMOGLOBIN [id number] 00:00:00 Test Item Value Reference Range Interpretation Comments HEMOGLOBIN A1c (test code = 58266) 6.4 % HEMOGLOBIN [id number] 00:00:00 Test Item Value Reference Range Interpretation Comments HEMOGLOBIN A1c (test code = 62167) 6.4 % COMPREHENSIVE METABOLIC [id number] 00:00:00 Test Item Value Reference Range Interpretation Comments GLUCOSE (test code = 2217) 206 MG/DL BUN (test code = 2208) 23 MG/DL CREATININE (test code = 2214) 0.67 MG/DL eGFR AMER. (test code 112 ML/MIN/1.73 = 52227) eGFR NON- AMER. (test 97 ML/MIN/1.73 code = 73032) CALC BUN/CREAT (test code = 34 RATIO [...] code = 2219) 25 U/L COMPREHENSIVE METABOLIC [id number] 00:00:00 Test Item Value Reference Range Interpretation Comments GLUCOSE (test code = 2217) 206 MG/DL BUN (test code = 2208) 23 MG/DL CREATININE (test code = 2214) 0.67 MG/DL eGFR AMER. (test code 112 ML/MIN/1.73 = 23327) eGFR NON- AMER. (test 97 ML/MIN/1.73 code = 98010) CALC BUN/CREAT (test code = 34 RATIO [...] = 2219) 25 U/L VAGINAL PATHOGENS DNA [id number] 00:00:00 Test Item Value Reference Range Interpretation Comments MARK SPECIES (test code = ) NEGATIVE G. VAGINALIS (test code = 89057) NEGATIVE T. VAGINALIS (test code = 99086) NEGATIVE VAGINAL PATHOGENS DNA [id number] 00:00:00 Test Item Value Reference Range Interpretation Comments MARK SPECIES (test code = 70409) NEGATIVE G. VAGINALIS (test code = 78423) NEGATIVE T. VAGINALIS (test code = 08366) NEGATIVE VAGINAL PATHOGENS DNA [id number] 00:00:00 Test Item Value Reference Range Interpretation Comments MARK SPECIES (test code = 99289) NEGATIVE G. VAGINALIS (test code = 45969) NEGATIVE T. VAGINALIS (test code = 57528) NEGATIVE VAGINAL PATHOGENS DNA [id number] 00:00:00 Test Item Value Reference Range Interpretation Comments MARK SPECIES (test code = 82809) NEGATIVE G. VAGINALIS (test code = 42433) NEGATIVE T. VAGINALIS (test code = 37686) NEGATIVE VAGINAL PATHOGENS DNA [id number] 00:00:00 Test Item Value Reference Range Interpretation Comments MARK SPECIES (test code = 14809) NEGATIVE G. VAGINALIS (test code = 10955) NEGATIVE T. VAGINALIS (test code = 06257) NEGATIVE VAGINAL PATHOGENS DNA [id number] 00:00:00 Test Item Value Reference Range Interpretation Comments MARK SPECIES (test code = 72751) NEGATIVE G. VAGINALIS (test code = 13490) NEGATIVE T. VAGINALIS (test code = 95112) NEGATIVE VAGINAL PATHOGENS DNA [id number] 00:00:00 Test Item Value Reference Range Interpretation Comments MARK SPECIES (test code = 93766) NEGATIVE G. VAGINALIS (test code = 73305) NEGATIVE T. VAGINALIS (test code = 26598) NEGATIVE HEMOGLOBIN A1c [ADDED]2018-12-01 00:00:00 Test Item Value Reference Range Interpretation Comments HEMOGLOBIN A1c (test code = 51012) 6.7 % HEMOGLOBIN A1c [ADDED]2018-12-01 00:00:00 Test Item Value Reference Range Interpretation Comments HEMOGLOBIN A1c (test code = 77199) 6.7 % HEMOGLOBIN A1c [ADDED]2018-12-01 00:00:00 Test Item Value Reference Range Interpretation Comments HEMOGLOBIN A1c (test code = 04342) 6.7 % COMPREHENSIVE METABOLIC PANEL [ADDED]2018-12-01 00:00:00 Test Item Value Reference Range Interpretation Comments GLUCOSE (test code = 2217) 136 MG/DL BUN (test code = 2208) 15 MG/DL CREATININE (test code = 2214) 0.64 MG/DL eGFR AMER. (test code 115 ML/MIN/1.73 = 97420) eGFR NON- AMER. (test 99 ML/MIN/1.73 code = 25253) CALC BUN/CREAT (test code = 23 RATIO [...] eGFR AMER. (test code 115 ML/MIN/1.73 = 31865) eGFR NON- AMER. (test 99 ML/MIN/1.73 code = 27095) CALC BUN/CREAT (test code = 23 RATIO [...] Interpretation Comments HEMOGLOBIN A1c (test code = 90846) 6.7 % HEMOGLOBIN A1c [ADDED]2018-12-01 00:00:00 Test Item Value Reference Range Interpretation Comments HEMOGLOBIN A1c (test code = 19359) 6.7 % HEMOGLOBIN A1c [ADDED]2018-12-01 00:00:00 Test Item Value Reference Range Interpretation Comments HEMOGLOBIN A1c (test code = 16750) 6.7 % COMPREHENSIVE METABOLIC PANEL [ADDED]2018-12-01 00:00:00 Test Item Value Reference Range Interpretation Comments GLUCOSE (test code = 2217) 136 MG/DL BUN (test code = 2208) 15 MG/DL CREATININE (test code = 2214) 0.64 MG/DL eGFR AMER. (test code 115 ML/MIN/1.73 = 22400) eGFR NON- AMER. (test 99 ML/MIN/1.73 code = 60364) CALC BUN/CREAT (test code = 23 RATIO [...] eGFR AMER. (test code 115 ML/MIN/1.73 = 71083) eGFR NON- AMER. (test 99 ML/MIN/1.73 code = 19591) CALC BUN/CREAT (test code = 23 RATIO [...] Interpretation Comments HEMOGLOBIN A1c (test code = 55648) 6.7 % HEMOGLOBIN A1c [ADDED]2018-12-01 00:00:00 Test Item Value Reference Range Interpretation Comments HEMOGLOBIN A1c (test code = 64395) 6.7 % COMPREHENSIVE METABOLIC PANEL [ADDED]2018-12-01 00:00:00 Test Item Value Reference Range Interpretation Comments GLUCOSE (test code = 2217) 136 MG/DL BUN (test code = 2208) 15 MG/DL CREATININE (test code = 2214) 0.64 MG/DL eGFR AMER. (test code 115 ML/MIN/1.73 = 12918) eGFR NON- AMER. (test 99 ML/MIN/1.73 code = 73158) CALC BUN/CREAT (test code = 23 RATIO [...] Interpretation Comments HEMOGLOBIN A1c (test code = 37663) 6.7 % HEMOGLOBIN A1c [ADDED]2018-12-01 00:00:00 Test Item Value Reference Range Interpretation Comments HEMOGLOBIN A1c (test code = 36378) 6.7 % HEMOGLOBIN A1c [ADDED]2018-12-01 00:00:00 Test Item Value Reference Range Interpretation Comments HEMOGLOBIN A1c (test code = 03676) 6.7 % COMPREHENSIVE METABOLIC PANEL [ADDED]2018-12-01 00:00:00 Test Item Value Reference Range Interpretation Comments GLUCOSE (test code = 2217) 136 MG/DL BUN (test code = 2208) 15 MG/DL CREATININE (test code = 2214) 0.64 MG/DL eGFR AMER. (test code 115 ML/MIN/1.73 = 14576) eGFR NON- AMER. (test 99 ML/MIN/1.73 code = 55096) CALC BUN/CREAT (test code = 23 RATIO [...] eGFR AMER. (test code 115 ML/MIN/1.73 = 93978) eGFR NON- AMER. (test 99 ML/MIN/1.73 code = 63050) CALC BUN/CREAT (test code = 23 RATIO [...] = <0.2 MG/DL 7) ALKALINE PHOSPHATASE (test 111 U/L code = [...] code 1.280 UIU/ML = 2821) CBC W/AUTO [id number] 00:00:00 Test Item Value Reference Range Interpretation [...] code = 1015) 346 K/UL CBC W/AUTO [id number] 00:00:00 Test Item Value Reference Range Interpretation [...] code = 1015) 346 K/UL CBC W/AUTO [id number] 00:00:00 Test Item Value Reference Range Interpretation [...] (test code = 1015) 346 K/UL HEMOGLOBIN [id number] 00:00:00 Test Item Value Reference Range Interpretation Comments HEMOGLOBIN A1c (test code = 89992) 5.9 % HEMOGLOBIN [id number] 00:00:00 Test Item Value Reference Range Interpretation Comments HEMOGLOBIN A1c (test code = 34086) 5.9 % HEMOGLOBIN [id number] 00:00:00 Test Item Value Reference Range Interpretation Comments HEMOGLOBIN A1c (test code = 84527) 5.9 % LIPID [id number] 00:00:00 Test Item Value Reference Range Interpretation Comments CHOLESTEROL (test code = 2210) 318 MG/DL TRIGLYCERIDES (test code = 2232) 263 MG/DL HDL CHOLESTEROL (test code = 2220) 51 MG/DL CALC LDL CHOL (test code = 2237) 214 MG/DL RISK RATIO LDL/HDL (test code = 4.20 RATIO 2238) LIPID [id number] 00:00:00 Test Item Value Reference Range Interpretation Comments CHOLESTEROL (test code = 2210) 318 MG/DL TRIGLYCERIDES (test code = 2232) 263 MG/DL HDL CHOLESTEROL (test code = 2220) 51 MG/DL CALC LDL CHOL (test code = 2237) 214 MG/DL RISK RATIO LDL/HDL (test code = 4.20 RATIO 2238) COMPREHENSIVE METABOLIC [id number] 00:00:00 Test Item Value Reference Range Interpretation Comments GLUCOSE (test code = 2217) 113 MG/DL BUN (test code = 2208) 18 MG/DL CREATININE (test code = 2214) 0.70 MG/DL eGFR AMER. (test code 111 ML/MIN/1.73 = 96114) eGFR NON- AMER. (test 96 ML/MIN/1.73 code = 19607) CALC BUN/CREAT (test code = 26 RATIO [...] code = 2219) 31 U/L COMPREHENSIVE METABOLIC [id number] 00:00:00 Test Item Value Reference Range Interpretation Comments GLUCOSE (test code = 2217) 113 MG/DL BUN (test code = 2208) 18 MG/DL CREATININE (test code = 2214) 0.70 MG/DL eGFR AMER. (test code 111 ML/MIN/1.73 = 27836) eGFR NON- AMER. (test 96 ML/MIN/1.73 code = 65061) CALC BUN/CREAT (test code = 26 RATIO [...] ALT (test code = 2219) 31 U/L [id number] 00:00:00 Test Item Value Reference Range Interpretation Comments TSH, THIRD GENERATION (test code 2.520 UIU/ML = 2821) [id number] 00:00:00 Test Item Value Reference Range Interpretation Comments TSH, THIRD GENERATION (test code 2.520 UIU/ML = 2821) [id number] 00:00:00 Test Item Value Reference Range Interpretation Comments TSH, THIRD GENERATION (test code 2.520 UIU/ML = 2821) CBC W/AUTO [id number] 00:00:00 Test Item Value Reference Range Interpretation [...] code = 1015) 346 K/UL CBC W/AUTO [id number] 00:00:00 Test Item Value Reference Range Interpretation [...] code = 1015) 346 K/UL CBC W/AUTO [id number] 00:00:00 Test Item Value Reference Range Interpretation [...] (test code = 1015) 346 K/UL HEMOGLOBIN [id number] 00:00:00 Test Item Value Reference Range Interpretation Comments HEMOGLOBIN A1c (test code = 08871) 5.9 % HEMOGLOBIN [id number] 00:00:00 Test Item Value Reference Range Interpretation Comments HEMOGLOBIN A1c (test code = 86850) 5.9 % HEMOGLOBIN [id number] 00:00:00 Test Item Value Reference Range Interpretation Comments HEMOGLOBIN A1c (test code = 56316) 5.9 % LIPID [id number] 00:00:00 Test Item Value Reference Range Interpretation Comments CHOLESTEROL (test code = 2210) 318 MG/DL TRIGLYCERIDES (test code = 2232) 263 MG/DL HDL CHOLESTEROL (test code = 2220) 51 MG/DL CALC LDL CHOL (test code = 2237) 214 MG/DL RISK RATIO LDL/HDL (test code = 4.20 RATIO 2238) LIPID [id number] 00:00:00 Test Item Value Reference Range Interpretation Comments CHOLESTEROL (test code = 2210) 318 MG/DL TRIGLYCERIDES (test code = 2232) 263 MG/DL HDL CHOLESTEROL (test code = 2220) 51 MG/DL CALC LDL CHOL (test code = 2237) 214 MG/DL RISK RATIO LDL/HDL (test code = 4.20 RATIO 2238) COMPREHENSIVE METABOLIC [id number] 00:00:00 Test Item Value Reference Range Interpretation Comments GLUCOSE (test code = 2217) 113 MG/DL BUN (test code = 2208) 18 MG/DL CREATININE (test code = 2214) 0.70 MG/DL eGFR AMER. (test code 111 ML/MIN/1.73 = 38841) eGFR NON- AMER. (test 96 ML/MIN/1.73 code = 75391) CALC BUN/CREAT (test code = 26 RATIO [...] code = 2219) 31 U/L COMPREHENSIVE METABOLIC [id number] 00:00:00 Test Item Value Reference Range Interpretation Comments GLUCOSE (test code = 2217) 113 MG/DL BUN (test code = 2208) 18 MG/DL CREATININE (test code = 2214) 0.70 MG/DL eGFR AMER. (test code 111 ML/MIN/1.73 = 46179) eGFR NON- AMER. (test 96 ML/MIN/1.73 code = 03890) CALC BUN/CREAT (test code = 26 RATIO [...] ALT (test code = 2219) 31 U/L [id number] 00:00:00 Test Item Value Reference Range Interpretation Comments TSH, THIRD GENERATION (test code 2.520 UIU/ML = 2821) [id number] 00:00:00 Test Item Value Reference Range Interpretation Comments TSH, THIRD GENERATION (test code 2.520 UIU/ML = 2821) [id number] 00:00:00 Test Item Value Reference Range Interpretation Comments TSH, THIRD GENERATION (test code 2.520 UIU/ML = 2821) CBC W/AUTO [id number] 00:00:00 Test Item Value Reference Range Interpretation [...] code = 1015) 346 K/UL CBC W/AUTO [id number] 00:00:00 Test Item Value Reference Range Interpretation [...] (test code = 1015) 346 K/UL HEMOGLOBIN [id number] 00:00:00 Test Item Value Reference Range Interpretation Comments HEMOGLOBIN A1c (test code = 71436) 5.9 % HEMOGLOBIN [id number] 00:00:00 Test Item Value Reference Range Interpretation Comments HEMOGLOBIN A1c (test code = 44565) 5.9 % LIPID [id number] 00:00:00 Test Item Value Reference Range Interpretation Comments CHOLESTEROL (test code = 2210) 318 MG/DL TRIGLYCERIDES (test code = 2232) 263 MG/DL HDL CHOLESTEROL (test code = 2220) 51 MG/DL CALC LDL CHOL (test code = 2237) 214 MG/DL RISK RATIO LDL/HDL (test code = 4.20 RATIO 2238) COMPREHENSIVE METABOLIC [id number] 00:00:00 Test Item Value Reference Range Interpretation Comments GLUCOSE (test code = 2217) 113 MG/DL BUN (test code = 2208) 18 MG/DL CREATININE (test code = 2214) 0.70 MG/DL eGFR AMER. (test code 111 ML/MIN/1.73 = 12548) eGFR NON- AMER. (test 96 ML/MIN/1.73 code = 36373) CALC BUN/CREAT (test code = 26 RATIO [...] ALT (test code = 2219) 31 U/L [id number] 00:00:00 Test Item Value Reference Range Interpretation Comments TSH, THIRD GENERATION (test code 2.520 UIU/ML = 2821) [id number] 00:00:00 Test Item Value Reference Range Interpretation Comments TSH, THIRD GENERATION (test code 2.520 UIU/ML = 2821) CBC W/AUTO [id number] 00:00:00 Test Item Value Reference Range Interpretation [...] code = 1015) 346 K/UL CBC W/AUTO [id number] 00:00:00 Test Item Value Reference Range Interpretation [...] code = 1015) 346 K/UL CBC W/AUTO [id number] 00:00:00 Test Item Value Reference Range Interpretation [...] (test code = 1015) 346 K/UL HEMOGLOBIN [id number] 00:00:00 Test Item Value Reference Range Interpretation Comments HEMOGLOBIN A1c (test code = 50413) 5.9 % HEMOGLOBIN [id number] 00:00:00 Test Item Value Reference Range Interpretation Comments HEMOGLOBIN A1c (test code = 40175) 5.9 % HEMOGLOBIN [id number] 00:00:00 Test Item Value Reference Range Interpretation Comments HEMOGLOBIN A1c (test code = 00769) 5.9 % LIPID [id number] 00:00:00 Test Item Value Reference Range Interpretation Comments CHOLESTEROL (test code = 2210) 318 MG/DL TRIGLYCERIDES (test code = 2232) 263 MG/DL HDL CHOLESTEROL (test code = 2220) 51 MG/DL CALC LDL CHOL (test code = 2237) 214 MG/DL RISK RATIO LDL/HDL (test code = 4.20 RATIO 2238) LIPID [id number] 00:00:00 Test Item Value Reference Range Interpretation Comments CHOLESTEROL (test code = 2210) 318 MG/DL TRIGLYCERIDES (test code = 2232) 263 MG/DL HDL CHOLESTEROL (test code = 2220) 51 MG/DL CALC LDL CHOL (test code = 2237) 214 MG/DL RISK RATIO LDL/HDL (test code = 4.20 RATIO 2238) COMPREHENSIVE METABOLIC [id number] 00:00:00 Test Item Value Reference Range Interpretation Comments GLUCOSE (test code = 2217) 113 MG/DL BUN (test code = 2208) 18 MG/DL CREATININE (test code = 2214) 0.70 MG/DL eGFR AMER. (test code 111 ML/MIN/1.73 = 41705) eGFR NON- AMER. (test 96 ML/MIN/1.73 code = 72089) CALC BUN/CREAT (test code = 26 RATIO [...] code = 2219) 31 U/L COMPREHENSIVE METABOLIC [id number] 00:00:00 Test Item Value Reference Range Interpretation Comments GLUCOSE (test code = 2217) 113 MG/DL BUN (test code = 2208) 18 MG/DL CREATININE (test code = 2214) 0.70 MG/DL eGFR AMER. (test code 111 ML/MIN/1.73 = 94341) eGFR NON- AMER. (test 96 ML/MIN/1.73 code = 84830) CALC BUN/CREAT (test code = 26 RATIO [...] ALT (test code = 2219) 31 U/L [id number] 00:00:00 Test Item Value Reference Range Interpretation Comments TSH, THIRD GENERATION (test code 2.520 UIU/ML = 2821) [id number] 00:00:00 Test Item Value Reference Range Interpretation Comments TSH, THIRD GENERATION (test code 2.520 UIU/ML = 2821) [id number] 00:00:00 Test Item Value Reference Range Interpretation Comments TSH, THIRD GENERATION (test code 2.520 UIU/ML = 2821) CULTURE, [id number] 00:00:00 Test Item Value Reference Range Interpretation Comments CULTURE, URINE (test SPECIMEN NUMBER: code = 27714) [id number] CULTURE, [id number] 00:00:00 Test Item Value Reference Range Interpretation Comments CULTURE, URINE (test SPECIMEN NUMBER: code = 39032) [id number] CULTURE, [id number] 00:00:00 Test Item Value Reference Range Interpretation Comments CULTURE, URINE (test SPECIMEN NUMBER: code = 47963) [id number] CULTURE, [id number] 00:00:00 Test Item Value Reference Range Interpretation Comments CULTURE, URINE (test SPECIMEN NUMBER: code = 34802) [id number] CULTURE, [id number] 00:00:00 Test Item Value Reference Range Interpretation Comments CULTURE, URINE (test SPECIMEN NUMBER: code = 46113) [id number] CULTURE, [id number] 00:00:00 Test Item Value Reference Range Interpretation Comments CULTURE, URINE (test SPECIMEN NUMBER: code = 53164) [id number] CULTURE, [id number] 00:00:00 Test Item Value Reference Range Interpretation Comments CULTURE, URINE (test SPECIMEN NUMBER: code = 70489) [id number] CULTURE, [id number] 00:00:00 Test Item Value Reference Range Interpretation Comments CULTURE, URINE (test SPECIMEN NUMBER: code = 61194) [id number] CULTURE, [id number] 00:00:00 Test Item Value Reference Range Interpretation Comments CULTURE, URINE (test SPECIMEN NUMBER: code = 78667) [id number] CULTURE, [id number] 00:00:00 Test Item Value Reference Range Interpretation Comments CULTURE, URINE (test SPECIMEN NUMBER: code = 17785) [id number] CULTURE, [id number] 00:00:00 Test Item Value Reference Range Interpretation Comments CULTURE, URINE (test SPECIMEN NUMBER: code = 17016) [id number] CULTURE, [id number] 00:00:00 Test Item Value Reference Range Interpretation Comments CULTURE, URINE (test SPECIMEN NUMBER: code = 10523) [id number] CULTURE, [id number] 00:00:00 Test Item Value Reference Range Interpretation Comments CULTURE, URINE (test SPECIMEN NUMBER: code = 40123) [id number] CULTURE, [id number] 00:00:00 Test Item Value Reference Range Interpretation Comments CULTURE, URINE (test SPECIMEN NUMBER: code = 33907) [id number] BASIC METABOLIC [id number] 00:00:00 Test Item Value Reference Range Interpretation Comments GLUCOSE (test code = 2217) 135 MG/DL BUN (test code = 2208) 25 MG/DL CREATININE (test code = 2214) 0.76 MG/DL eGFR AMER. (test code 101 ML/MIN/1.73 = 81258) eGFR NON- AMER. (test 87 ML/MIN/1.73 code = 74204) SODIUM (test code = 2231) 139 MEQ/L POTASSIUM (test code = 2228) 4.7 MEQ/L CHLORIDE (test code = 2215) 99 MEQ/L CARBON DIOXIDE (test code = 26 MEQ/L 2206) CALCIUM (test code = 2209) 9.4 MG/DL BASIC METABOLIC [id number] 00:00:00 Test Item Value Reference Range Interpretation Comments GLUCOSE (test code = 2217) 135 MG/DL BUN (test code = 2208) 25 MG/DL CREATININE (test code = 2214) 0.76 MG/DL eGFR AMER. (test code 101 ML/MIN/1.73 = 05566) eGFR NON- AMER. (test 87 ML/MIN/1.73 code = 43801) SODIUM (test code = 2231) 139 MEQ/L POTASSIUM (test code = 2228) 4.7 MEQ/L CHLORIDE (test code = 2215) 99 MEQ/L CARBON DIOXIDE (test code = 26 MEQ/L 2206) CALCIUM (test code = 2209) 9.4 MG/DL LIPID [id number] 00:00:00 Test Item Value Reference Range Interpretation Comments CHOLESTEROL (test code = 2210) 262 MG/DL TRIGLYCERIDES (test code = 2232) 300 MG/DL HDL CHOLESTEROL (test code = 2220) 36 MG/DL CALC LDL CHOL (test code = 2237) 166 MG/DL RISK RATIO LDL/HDL (test code = 4.61 RATIO 2238) LIPID [id number] 00:00:00 Test Item Value Reference Range Interpretation Comments CHOLESTEROL (test code = 2210) 262 MG/DL TRIGLYCERIDES (test code = 2232) 300 MG/DL HDL CHOLESTEROL (test code = 2220) 36 MG/DL CALC LDL CHOL (test code = 2237) 166 MG/DL RISK RATIO LDL/HDL (test code = 4.61 RATIO 2238) HEMOGLOBIN [id number] 00:00:00 Test Item Value Reference Range Interpretation Comments HEMOGLOBIN A1c (test code = 02900) 6.2 % HEMOGLOBIN [id number] 00:00:00 Test Item Value Reference Range Interpretation Comments HEMOGLOBIN A1c (test code = 20714) 6.2 % HEMOGLOBIN [id number] 00:00:00 Test Item Value Reference Range Interpretation Comments HEMOGLOBIN A1c (test code = 03771) 6.2 % [id number] 00:00:00 Test Item Value Reference Range Interpretation Comments TSH, THIRD GENERATION (test code 0.988 UIU/ML = 2821) [id number] 00:00:00 Test Item Value Reference Range Interpretation Comments TSH, THIRD GENERATION (test code 0.988 UIU/ML = 2821) [id number] 00:00:00 Test Item Value Reference Range Interpretation Comments TSH, THIRD GENERATION (test code 0.988 UIU/ML = 2821) BASIC METABOLIC [id number] 00:00:00 Test Item Value Reference Range Interpretation Comments GLUCOSE (test code = 2217) 135 MG/DL BUN (test code = 2208) 25 MG/DL CREATININE (test code = 2214) 0.76 MG/DL eGFR AMER. (test code 101 ML/MIN/1.73 = 27687) eGFR NON- AMER. (test 87 ML/MIN/1.73 code = 57433) SODIUM (test code = 2231) 139 MEQ/L POTASSIUM (test code = 2228) 4.7 MEQ/L CHLORIDE (test code = 2215) 99 MEQ/L CARBON DIOXIDE (test code = 26 MEQ/L 2206) CALCIUM (test code = 2209) 9.4 MG/DL BASIC METABOLIC [id number] 00:00:00 Test Item Value Reference Range Interpretation Comments GLUCOSE (test code = 2217) 135 MG/DL BUN (test code = 2208) 25 MG/DL CREATININE (test code = 2214) 0.76 MG/DL eGFR AMER. (test code 101 ML/MIN/1.73 = 16286) eGFR NON- AMER. (test 87 ML/MIN/1.73 code = 66858) SODIUM (test code = 2231) 139 MEQ/L POTASSIUM (test code = 2228) 4.7 MEQ/L CHLORIDE (test code = 2215) 99 MEQ/L CARBON DIOXIDE (test code = 26 MEQ/L 2206) CALCIUM (test code = 2209) 9.4 MG/DL LIPID [id number] 00:00:00 Test Item Value Reference Range Interpretation Comments CHOLESTEROL (test code = 2210) 262 MG/DL TRIGLYCERIDES (test code = 2232) 300 MG/DL HDL CHOLESTEROL (test code = 2220) 36 MG/DL CALC LDL CHOL (test code = 2237) 166 MG/DL RISK RATIO LDL/HDL (test code = 4.61 RATIO 2238) LIPID [id number] 00:00:00 Test Item Value Reference Range Interpretation Comments CHOLESTEROL (test code = 2210) 262 MG/DL TRIGLYCERIDES (test code = 2232) 300 MG/DL HDL CHOLESTEROL (test code = 2220) 36 MG/DL CALC LDL CHOL (test code = 2237) 166 MG/DL RISK RATIO LDL/HDL (test code = 4.61 RATIO 2238) HEMOGLOBIN [id number] 00:00:00 Test Item Value Reference Range Interpretation Comments HEMOGLOBIN A1c (test code = 88847) 6.2 % HEMOGLOBIN [id number] 00:00:00 Test Item Value Reference Range Interpretation Comments HEMOGLOBIN A1c (test code = 23608) 6.2 % HEMOGLOBIN [id number] 00:00:00 Test Item Value Reference Range Interpretation Comments HEMOGLOBIN A1c (test code = 93059) 6.2 % [id number] 00:00:00 Test Item Value Reference Range Interpretation Comments TSH, THIRD GENERATION (test code 0.988 UIU/ML = 2821) [id number] 00:00:00 Test Item Value Reference Range Interpretation Comments TSH, THIRD GENERATION (test code 0.988 UIU/ML = 2821) [id number] 00:00:00 Test Item Value Reference Range Interpretation Comments TSH, THIRD GENERATION (test code 0.988 UIU/ML = 2821) BASIC METABOLIC [id number] 00:00:00 Test Item Value Reference Range Interpretation Comments GLUCOSE (test code = 2217) 135 MG/DL BUN (test code = 2208) 25 MG/DL CREATININE (test code = 2214) 0.76 MG/DL eGFR AMER. (test code 101 ML/MIN/1.73 = 18042) eGFR NON- AMER. (test 87 ML/MIN/1.73 code = 06064) SODIUM (test code = 2231) 139 MEQ/L POTASSIUM (test code = 2228) 4.7 MEQ/L CHLORIDE (test code = 2215) 99 MEQ/L CARBON DIOXIDE (test code = 26 MEQ/L 2206) CALCIUM (test code = 2209) 9.4 MG/DL LIPID [id number] 00:00:00 Test Item Value Reference Range Interpretation Comments CHOLESTEROL (test code = 2210) 262 MG/DL TRIGLYCERIDES (test code = 2232) 300 MG/DL HDL CHOLESTEROL (test code = 2220) 36 MG/DL CALC LDL CHOL (test code = 2237) 166 MG/DL RISK RATIO LDL/HDL (test code = 4.61 RATIO 2238) HEMOGLOBIN [id number] 00:00:00 Test Item Value Reference Range Interpretation Comments HEMOGLOBIN A1c (test code = 14255) 6.2 % HEMOGLOBIN [id number] 00:00:00 Test Item Value Reference Range Interpretation Comments HEMOGLOBIN A1c (test code = 26680) 6.2 % [id number] 00:00:00 Test Item Value Reference Range Interpretation Comments TSH, THIRD GENERATION (test code 0.988 UIU/ML = 2821) [id number] 00:00:00 Test Item Value Reference Range Interpretation Comments TSH, THIRD GENERATION (test code 0.988 UIU/ML = 2821) BASIC METABOLIC [id number] 00:00:00 Test Item Value Reference Range Interpretation Comments GLUCOSE (test code = 2217) 135 MG/DL BUN (test code = 2208) 25 MG/DL CREATININE (test code = 2214) 0.76 MG/DL eGFR AMER. (test code 101 ML/MIN/1.73 = 72277) eGFR NON- AMER. (test 87 ML/MIN/1.73 code = 86163) SODIUM (test code = 2231) 139 MEQ/L POTASSIUM (test code = 2228) 4.7 MEQ/L CHLORIDE (test code = 2215) 99 MEQ/L CARBON DIOXIDE (test code = 26 MEQ/L 2205) CALCIUM (test code = 2209) 9.4 MG/DL BASIC METABOLIC [id number] 00:00:00 Test Item Value Reference Range Interpretation Comments GLUCOSE (test code = 2217) 135 MG/DL BUN (test code = 2208) 25 MG/DL CREATININE (test code = 2214) 0.76 MG/DL eGFR AMER. (test code 101 ML/MIN/1.73 = 58000) eGFR NON- AMER. (test 87 ML/MIN/1.73 code = 94045) SODIUM (test code = 2231) 139 MEQ/L POTASSIUM (test code = 2228) 4.7 MEQ/L CHLORIDE (test code = 2215) 99 MEQ/L CARBON DIOXIDE (test code = 26 MEQ/L 2205) CALCIUM (test code = 2209) 9.4 MG/DL LIPID [id number] 00:00:00 Test Item Value Reference Range Interpretation Comments CHOLESTEROL (test code = 2210) 262 MG/DL TRIGLYCERIDES (test code = 2232) 300 MG/DL HDL CHOLESTEROL (test code = 2220) 36 MG/DL CALC LDL CHOL (test code = 2237) 166 MG/DL RISK RATIO LDL/HDL (test code = 4.61 RATIO 2238) LIPID [id number] 00:00:00 Test Item Value Reference Range Interpretation Comments CHOLESTEROL (test code = 2210) 262 MG/DL TRIGLYCERIDES (test code = 2232) 300 MG/DL HDL CHOLESTEROL (test code = 2220) 36 MG/DL CALC LDL CHOL (test code = 2237) 166 MG/DL RISK RATIO LDL/HDL (test code = 4.61 RATIO 2238) HEMOGLOBIN [id number] 00:00:00 Test Item Value Reference Range Interpretation Comments HEMOGLOBIN A1c (test code = 12738) 6.2 % HEMOGLOBIN [id number] 00:00:00 Test Item Value Reference Range Interpretation Comments HEMOGLOBIN A1c (test code = 01903) 6.2 % HEMOGLOBIN [id number] 00:00:00 Test Item Value Reference Range Interpretation Comments HEMOGLOBIN A1c (test code = 48214) 6.2 % [id number] 00:00:00 Test Item Value Reference Range Interpretation Comments TSH, THIRD GENERATION (test code 0.988 UIU/ML = 2821) [id number] 00:00:00 Test Item Value Reference Range Interpretation Comments TSH, THIRD GENERATION (test code 0.988 UIU/ML = 2821) [id number] 00:00:00 Test Item Value Reference Range Interpretation Comments TSH, THIRD GENERATION (test code 0.988 UIU/ML = 2821) COMPREHENSIVE METABOLIC [id number] 00:00:00 Test Item Value Reference Range Interpretation Comments GLUCOSE (test code = 2217) 109 MG/DL BUN (test code = 2208) 25 MG/DL CREATININE (test code = 2214) 0.78 MG/DL eGFR AMER. (test code 98 ML/MIN/1.73 = 62157) eGFR NON- AMER. (test 84 ML/MIN/1.73 code = 99540) CALC BUN/CREAT (test code = 32 RATIO [...] code = 2219) 25 U/L COMPREHENSIVE METABOLIC [id number] 00:00:00 Test Item Value Reference Range Interpretation Comments GLUCOSE (test code = 2217) 109 MG/DL BUN (test code = 2208) 25 MG/DL CREATININE (test code = 2214) 0.78 MG/DL eGFR AMER. (test code 98 ML/MIN/1.73 = 32046) eGFR NON- AMER. (test 84 ML/MIN/1.73 code = 88118) CALC BUN/CREAT (test code = 32 RATIO [...] (test code = 2219) 25 U/L LIPID [id number] 00:00:00 Test Item Value Reference Range Interpretation Comments CHOLESTEROL (test code = 2210) 295 MG/DL TRIGLYCERIDES (test code = 2232) 218 MG/DL HDL CHOLESTEROL (test code = 2220) 46 MG/DL CALC LDL CHOL (test code = 2237) 205 MG/DL RISK RATIO LDL/HDL (test code = 4.47 RATIO 2238) LIPID [id number] 00:00:00 Test Item Value Reference Range Interpretation Comments CHOLESTEROL (test code = 2210) 295 MG/DL TRIGLYCERIDES (test code = 2232) 218 MG/DL HDL CHOLESTEROL (test code = 2220) 46 MG/DL CALC LDL CHOL (test code = 2237) 205 MG/DL RISK RATIO LDL/HDL (test code = 4.47 RATIO 2238) HEMOGLOBIN [id number] 00:00:00 Test Item Value Reference Range Interpretation Comments HEMOGLOBIN A1c (test code = 27479) 7.0 % HEMOGLOBIN [id number] 00:00:00 Test Item Value Reference Range Interpretation Comments HEMOGLOBIN A1c (test code = 77713) 7.0 % HEMOGLOBIN [id number] 00:00:00 Test Item Value Reference Range Interpretation Comments HEMOGLOBIN A1c (test code = 26603) 7.0 % [id number] 00:00:00 Test Item Value Reference Range Interpretation Comments TSH, THIRD GENERATION (test code 0.565 UIU/ML = 2821) [id number] 00:00:00 Test Item Value Reference Range Interpretation Comments TSH, THIRD GENERATION (test code 0.565 UIU/ML = 2821) [id number] 00:00:00 Test Item Value Reference Range Interpretation Comments TSH, THIRD GENERATION (test code 0.565 UIU/ML = 2821) COMPREHENSIVE METABOLIC [id number] 00:00:00 Test Item Value Reference Range Interpretation Comments GLUCOSE (test code = 2217) 109 MG/DL BUN (test code = 2208) 25 MG/DL CREATININE (test code = 2214) 0.78 MG/DL eGFR AMER. (test code 98 ML/MIN/1.73 = 58321) eGFR NON- AMER. (test 84 ML/MIN/1.73 code = 48495) CALC BUN/CREAT (test code = 32 RATIO [...] code = 2219) 25 U/L COMPREHENSIVE METABOLIC [id number] 00:00:00 Test Item Value Reference Range Interpretation Comments GLUCOSE (test code = 2217) 109 MG/DL BUN (test code = 2208) 25 MG/DL CREATININE (test code = 2214) 0.78 MG/DL eGFR AMER. (test code 98 ML/MIN/1.73 = 68328) eGFR NON- AMER. (test 84 ML/MIN/1.73 code = 70209) CALC BUN/CREAT (test code = 32 RATIO [...] (test code = 2219) 25 U/L LIPID [id number] 00:00:00 Test Item Value Reference Range Interpretation Comments CHOLESTEROL (test code = 2210) 295 MG/DL TRIGLYCERIDES (test code = 2232) 218 MG/DL HDL CHOLESTEROL (test code = 2220) 46 MG/DL CALC LDL CHOL (test code = 2237) 205 MG/DL RISK RATIO LDL/HDL (test code = 4.47 RATIO 2238) LIPID [id number] 00:00:00 Test Item Value Reference Range Interpretation Comments CHOLESTEROL (test code = 2210) 295 MG/DL TRIGLYCERIDES (test code = 2232) 218 MG/DL HDL CHOLESTEROL (test code = 2220) 46 MG/DL CALC LDL CHOL (test code = 2237) 205 MG/DL RISK RATIO LDL/HDL (test code = 4.47 RATIO 2238) HEMOGLOBIN [id number] 00:00:00 Test Item Value Reference Range Interpretation Comments HEMOGLOBIN A1c (test code = 91013) 7.0 % HEMOGLOBIN [id number] 00:00:00 Test Item Value Reference Range Interpretation Comments HEMOGLOBIN A1c (test code = 66226) 7.0 % HEMOGLOBIN [id number] 00:00:00 Test Item Value Reference Range Interpretation Comments HEMOGLOBIN A1c (test code = 71362) 7.0 % [id number] 00:00:00 Test Item Value Reference Range Interpretation Comments TSH, THIRD GENERATION (test code 0.565 UIU/ML = 2821) [id number] 00:00:00 Test Item Value Reference Range Interpretation Comments TSH, THIRD GENERATION (test code 0.565 UIU/ML = 2821) [id number] 00:00:00 Test Item Value Reference Range Interpretation Comments TSH, THIRD GENERATION (test code 0.565 UIU/ML = 2821) COMPREHENSIVE METABOLIC [id number] 00:00:00 Test Item Value Reference Range Interpretation Comments GLUCOSE (test code = 2217) 109 MG/DL BUN (test code = 2208) 25 MG/DL CREATININE (test code = 2214) 0.78 MG/DL eGFR AMER. (test code 98 ML/MIN/1.73 = 73359) eGFR NON- AMER. (test 84 ML/MIN/1.73 code = 16738) CALC BUN/CREAT (test code = 32 RATIO [...] (test code = 2219) 25 U/L LIPID [id number] 00:00:00 Test Item Value Reference Range Interpretation Comments CHOLESTEROL (test code = 2210) 295 MG/DL TRIGLYCERIDES (test code = 2232) 218 MG/DL HDL CHOLESTEROL (test code = 2220) 46 MG/DL CALC LDL CHOL (test code = 2237) 205 MG/DL RISK RATIO LDL/HDL (test code = 4.47 RATIO 2238) HEMOGLOBIN [id number] 00:00:00 Test Item Value Reference Range Interpretation Comments HEMOGLOBIN A1c (test code = 80227) 7.0 % HEMOGLOBIN [id number] 00:00:00 Test Item Value Reference Range Interpretation Comments HEMOGLOBIN A1c (test code = 11379) 7.0 % [id number] 00:00:00 Test Item Value Reference Range Interpretation Comments TSH, THIRD GENERATION (test code 0.565 UIU/ML = 2821) [id number] 00:00:00 Test Item Value Reference Range Interpretation Comments TSH, THIRD GENERATION (test code 0.565 UIU/ML = 2821) COMPREHENSIVE METABOLIC [id number] 00:00:00 Test Item Value Reference Range Interpretation Comments GLUCOSE (test code = 2217) 109 MG/DL BUN (test code = 2208) 25 MG/DL CREATININE (test code = 2214) 0.78 MG/DL eGFR AMER. (test code 98 ML/MIN/1.73 = 68611) eGFR NON- AMER. (test 84 ML/MIN/1.73 code = 95962) CALC BUN/CREAT (test code = 32 RATIO [...] code = 2219) 25 U/L COMPREHENSIVE METABOLIC [id number] 00:00:00 Test Item Value Reference Range Interpretation Comments GLUCOSE (test code = 2217) 109 MG/DL BUN (test code = 2208) 25 MG/DL CREATININE (test code = 2214) 0.78 MG/DL eGFR AMER. (test code 98 ML/MIN/1.73 = 66150) eGFR NON- AMER. (test 84 ML/MIN/1.73 code = 50880) CALC BUN/CREAT (test code = 32 RATIO [...] (test code = 2219) 25 U/L LIPID [id number] 00:00:00 Test Item Value Reference Range Interpretation Comments CHOLESTEROL (test code = 2210) 295 MG/DL TRIGLYCERIDES (test code = 2232) 218 MG/DL HDL CHOLESTEROL (test code = 2220) 46 MG/DL CALC LDL CHOL (test code = 2237) 205 MG/DL RISK RATIO LDL/HDL (test code = 4.47 RATIO 2238) LIPID [id number] 00:00:00 Test Item Value Reference Range Interpretation Comments CHOLESTEROL (test code = 2210) 295 MG/DL TRIGLYCERIDES (test code = 2232) 218 MG/DL HDL CHOLESTEROL (test code = 2220) 46 MG/DL CALC LDL CHOL (test code = 2237) 205 MG/DL RISK RATIO LDL/HDL (test code = 4.47 RATIO 2238) HEMOGLOBIN [id number] 00:00:00 Test Item Value Reference Range Interpretation Comments HEMOGLOBIN A1c (test code = 26359) 7.0 % HEMOGLOBIN [id number] 00:00:00 Test Item Value Reference Range Interpretation Comments HEMOGLOBIN A1c (test code = 70215) 7.0 % HEMOGLOBIN [id number] 00:00:00 Test Item Value Reference Range Interpretation Comments HEMOGLOBIN A1c (test code = 55067) 7.0 % [id number] 00:00:00 Test Item Value Reference Range Interpretation Comments TSH, THIRD GENERATION (test code 0.565 UIU/ML = 2821) [id number] 00:00:00 Test Item Value Reference Range Interpretation Comments TSH, THIRD GENERATION (test code 0.565 UIU/ML = 2821) [id number] 00:00:00 Test Item Value Reference Range Interpretation Comments TSH, THIRD GENERATION (test code 0.565 UIU/ML = 2821) [id number] 00:00:00 Test Item Value Reference Range Interpretation Comments TSH, THIRD GENERATION (test code 0.379 UIU/ML = 2821) [id number] 00:00:00 Test Item Value Reference Range Interpretation Comments TSH, THIRD GENERATION (test code 0.379 UIU/ML = 2821) [id number] 00:00:00 Test Item Value Reference Range Interpretation Comments TSH, THIRD GENERATION (test code 0.379 UIU/ML = 2821) [id number] 00:00:00 Test Item Value Reference Range Interpretation Comments TSH, THIRD GENERATION (test code 0.379 UIU/ML = 2821) [id number] 00:00:00 Test Item Value Reference Range Interpretation Comments TSH, THIRD GENERATION (test code 0.379 UIU/ML = 2821) [id number] 00:00:00 Test Item Value Reference Range Interpretation Comments TSH, THIRD GENERATION (test code 0.379 UIU/ML = 2821) [id number] 00:00:00 Test Item Value Reference Range Interpretation Comments TSH, THIRD GENERATION (test code 0.379 UIU/ML = 2821) [id number] 00:00:00 Test Item Value Reference Range Interpretation Comments TSH, THIRD GENERATION (test code 0.379 UIU/ML = 2821) [id number] 00:00:00 Test Item Value Reference Range Interpretation Comments TSH, THIRD GENERATION (test code 0.379 UIU/ML = 2821) [id number] 00:00:00 Test Item Value Reference Range Interpretation Comments TSH, THIRD GENERATION (test code 0.379 UIU/ML = 2821) [id number] 00:00:00 Test Item Value Reference Range Interpretation Comments TSH, THIRD GENERATION (test code 0.379 UIU/ML = 2821) CULTURE, [id number] 00:00:00 Test Item Value Reference Range Interpretation Comments CULTURE, URINE (test SPECIMEN NUMBER: code = 66950) [id number] CULTURE, [id number] 00:00:00 Test Item Value Reference Range Interpretation Comments CULTURE, URINE (test SPECIMEN NUMBER: code = 46122) [id number] CULTURE, [id number] 00:00:00 Test Item Value Reference Range Interpretation Comments CULTURE, URINE (test SPECIMEN NUMBER: code = 83975) [id number] CULTURE, [id number] 00:00:00 Test Item Value Reference Range Interpretation Comments CULTURE, URINE (test SPECIMEN NUMBER: code = 57510) [id number] CULTURE, [id number] 00:00:00 Test Item Value Reference Range Interpretation Comments CULTURE, URINE (test SPECIMEN NUMBER: code = 04982) [id number] CULTURE, [id number] 00:00:00 Test Item Value Reference Range Interpretation Comments CULTURE, URINE (test SPECIMEN NUMBER: code = 18574) [id number] CULTURE, [id number] 00:00:00 Test Item Value Reference Range Interpretation Comments CULTURE, URINE (test SPECIMEN NUMBER: code = 50617) [id number] COMPREHENSIVE METABOLIC [id number] 00:00:00 Test Item Value Reference Range Interpretation Comments GLUCOSE (test code = 2217) 128 MG/DL BUN (test code = 2208) 26 MG/DL CREATININE (test code = 2214) 0.92 MG/DL eGFR AMER. (test code 81 ML/MIN/1.73 = 02160) eGFR NON- AMER. (test 70 ML/MIN/1.73 code = 39502) CALC BUN/CREAT (test code = 28 RATIO [...] code = 2219) 29 U/L COMPREHENSIVE METABOLIC [id number] 00:00:00 Test Item Value Reference Range Interpretation Comments GLUCOSE (test code = 2217) 128 MG/DL BUN (test code = 2208) 26 MG/DL CREATININE (test code = 2214) 0.92 MG/DL eGFR AMER. (test code 81 ML/MIN/1.73 = 67831) eGFR NON- AMER. (test 70 ML/MIN/1.73 code = 93311) CALC BUN/CREAT (test code = 28 RATIO [...] code = 2219) 29 U/L ACUTE HEPATITIS [id number] 00:00:00 Test Item Value Reference Range Interpretation Comments HEPATITIS A IgM (test code = NON-REACTIVE 95459) HEPATITIS B CORE IgM (test code NON-REACTIVE = 4644) HEPATITIS B SURF AG (test code = NON-REACTIVE 2739) HEPATITIS C ANTIBODY (test code NON-REACTIVE = 4675) INTERPRETATION HEPATITIS A: (NOTE) (test code = 2552) INTERPRETATION HEPATITIS B: (NOTE) (test code = 47213) INTERPRETATION HEPATITIS C: (NOTE) (test code = 93616) ACUTE HEPATITIS [id number] 00:00:00 Test Item Value Reference Range Interpretation Comments HEPATITIS A IgM (test code = NON-REACTIVE 46696) HEPATITIS B CORE IgM (test code NON-REACTIVE = 4644) HEPATITIS B SURF AG (test code = NON-REACTIVE 2739) HEPATITIS C ANTIBODY (test code NON-REACTIVE = 4675) INTERPRETATION HEPATITIS A: (NOTE) (test code = 2552) INTERPRETATION HEPATITIS B: (NOTE) (test code = 39362) INTERPRETATION HEPATITIS C: (NOTE) (test code = 34708) [id number] 00:00:00 Test Item Value Reference Range Interpretation Comments AMYLASE (test code = 2205) 32 U/L [id number] 00:00:00 Test Item Value Reference Range Interpretation Comments AMYLASE (test code = 2205) 32 U/L [id number] 00:00:00 Test Item Value Reference Range Interpretation Comments LIPASE (test code = 2057) 22 U/L [id number] 00:00:00 Test Item Value Reference Range Interpretation Comments LIPASE (test code = 205) 22 U/L [id number] 00:00:00 Test Item Value Reference Range Interpretation Comments LIPASE (test code = 2058) 22 U/L COMPREHENSIVE METABOLIC [id number] 00:00:00 Test Item Value Reference Range Interpretation Comments GLUCOSE (test code = 2217) 128 MG/DL BUN (test code = 2208) 26 MG/DL CREATININE (test code = 2214) 0.92 MG/DL eGFR AMER. (test code 81 ML/MIN/1.73 = 91789) eGFR NON- AMER. (test 70 ML/MIN/1.73 code = 29579) CALC BUN/CREAT (test code = 28 RATIO [...] code = 2219) 29 U/L COMPREHENSIVE METABOLIC [id number] 00:00:00 Test Item Value Reference Range Interpretation Comments GLUCOSE (test code = 2217) 128 MG/DL BUN (test code = 2208) 26 MG/DL CREATININE (test code = 2214) 0.92 MG/DL eGFR AMER. (test code 81 ML/MIN/1.73 = 65298) eGFR NON- AMER. (test 70 ML/MIN/1.73 code = 79814) CALC BUN/CREAT (test code = 28 RATIO [...] code = 2219) 29 U/L ACUTE HEPATITIS [id number] 00:00:00 Test Item Value Reference Range Interpretation Comments HEPATITIS A IgM (test code = NON-REACTIVE 80596) HEPATITIS B CORE IgM (test code NON-REACTIVE = 4644) HEPATITIS B SURF AG (test code = NON-REACTIVE 2739) HEPATITIS C ANTIBODY (test code NON-REACTIVE = 4675) INTERPRETATION HEPATITIS A: (NOTE) (test code = 2552) INTERPRETATION HEPATITIS B: (NOTE) (test code = 24862) INTERPRETATION HEPATITIS C: (NOTE) (test code = 37014) ACUTE HEPATITIS [id number] 00:00:00 Test Item Value Reference Range Interpretation Comments HEPATITIS A IgM (test code = NON-REACTIVE 73423) HEPATITIS B CORE IgM (test code NON-REACTIVE = 4644) HEPATITIS B SURF AG (test code = NON-REACTIVE 2739) HEPATITIS C ANTIBODY (test code NON-REACTIVE = 4675) INTERPRETATION HEPATITIS A: (NOTE) (test code = 2552) INTERPRETATION HEPATITIS B: (NOTE) (test code = 23365) INTERPRETATION HEPATITIS C: (NOTE) (test code = 46284) [id number] 00:00:00 Test Item Value Reference Range Interpretation Comments AMYLASE (test code = 2205) 32 U/L [id number] 00:00:00 Test Item Value Reference Range Interpretation Comments AMYLASE (test code = 2205) 32 U/L [id number] 00:00:00 Test Item Value Reference Range Interpretation Comments LIPASE (test code = 2058) 22 U/L [id number] 00:00:00 Test Item Value Reference Range Interpretation Comments LIPASE (test code = 2058) 22 U/L [id number] 00:00:00 Test Item Value Reference Range Interpretation Comments LIPASE (test code = 2058) 22 U/L COMPREHENSIVE METABOLIC [id number] 00:00:00 Test Item Value Reference Range Interpretation Comments GLUCOSE (test code = 2217) 128 MG/DL BUN (test code = 2208) 26 MG/DL CREATININE (test code = 2214) 0.92 MG/DL eGFR AMER. (test code 81 ML/MIN/1.73 = 20633) eGFR NON- AMER. (test 70 ML/MIN/1.73 code = 43343) CALC BUN/CREAT (test code = 28 RATIO [...] code = 2219) 29 U/L ACUTE HEPATITIS [id number] 00:00:00 Test Item Value Reference Range Interpretation Comments HEPATITIS A IgM (test code = NON-REACTIVE 33595) HEPATITIS B CORE IgM (test code NON-REACTIVE = 3544) HEPATITIS B SURF AG (test code = NON-REACTIVE 5881) HEPATITIS C ANTIBODY (test code NON-REACTIVE = 2930) INTERPRETATION HEPATITIS A: (NOTE) (test code = 2552) INTERPRETATION HEPATITIS B: (NOTE) (test code = 15636) INTERPRETATION HEPATITIS C: (NOTE) (test code = 88097) [id number] 00:00:00 Test Item Value Reference Range Interpretation Comments AMYLASE (test code = 5) 32 U/L [id number] 00:00:00 Test Item Value Reference Range Interpretation Comments LIPASE (test code = 2057) 22 U/L [id number] 00:00:00 Test Item Value Reference Range Interpretation Comments LIPASE (test code = 2058) 22 U/L COMPREHENSIVE METABOLIC [id number] 00:00:00 Test Item Value Reference Range Interpretation Comments GLUCOSE (test code = 2217) 128 MG/DL BUN (test code = 2208) 26 MG/DL CREATININE (test code = 2214) 0.92 MG/DL eGFR AMER. (test code 81 ML/MIN/1.73 = 89275) eGFR NON- AMER. (test 70 ML/MIN/1.73 code = 41104) CALC BUN/CREAT (test code = 28 RATIO [...] code = 2219) 29 U/L COMPREHENSIVE METABOLIC [id number] 00:00:00 Test Item Value Reference Range Interpretation Comments GLUCOSE (test code = 2217) 128 MG/DL BUN (test code = 2208) 26 MG/DL CREATININE (test code = 2214) 0.92 MG/DL eGFR AMER. (test code 81 ML/MIN/1.73 = 81986) eGFR NON- AMER. (test 70 ML/MIN/1.73 code = 65303) CALC BUN/CREAT (test code = 28 RATIO [...] code = 2219) 29 U/L ACUTE HEPATITIS [id number] 00:00:00 Test Item Value Reference Range Interpretation Comments HEPATITIS A IgM (test code = NON-REACTIVE 65975) HEPATITIS B CORE IgM (test code NON-REACTIVE = 4644) HEPATITIS B SURF AG (test code = NON-REACTIVE 2739) HEPATITIS C ANTIBODY (test code NON-REACTIVE = 4675) INTERPRETATION HEPATITIS A: (NOTE) (test code = 2552) INTERPRETATION HEPATITIS B: (NOTE) (test code = 08000) INTERPRETATION HEPATITIS C: (NOTE) (test code = 48013) ACUTE HEPATITIS [id number] 00:00:00 Test Item Value Reference Range Interpretation Comments HEPATITIS A IgM (test code = NON-REACTIVE 94101) HEPATITIS B CORE IgM (test code NON-REACTIVE = 4644) HEPATITIS B SURF AG (test code = NON-REACTIVE 2739) HEPATITIS C ANTIBODY (test code NON-REACTIVE = 4675) INTERPRETATION HEPATITIS A: (NOTE) (test code = 2552) INTERPRETATION HEPATITIS B: (NOTE) (test code = 63683) INTERPRETATION HEPATITIS C: (NOTE) (test code = 44267) [id number] 00:00:00 Test Item Value Reference Range Interpretation Comments AMYLASE (test code = 2205) 32 U/L [id number] 00:00:00 Test Item Value Reference Range Interpretation Comments AMYLASE (test code = 2205) 32 U/L [id number] 00:00:00 Test Item Value Reference Range Interpretation Comments LIPASE (test code = 2058) 22 U/L [id number] 00:00:00 Test Item Value Reference Range Interpretation Comments LIPASE (test code = 2058) 22 U/L [id number] 00:00:00 Test Item Value Reference Range Interpretation Comments LIPASE (test code = 2058) 22 U/L [id number] 00:00:00 Test Item Value Reference Range Interpretation Comments TSH, THIRD GENERATION (test code 4.890 UIU/ML = 2821) [id number] 00:00:00 Test Item Value Reference Range Interpretation Comments TSH, THIRD GENERATION (test code 4.890 UIU/ML = 2821) [id number] 00:00:00 Test Item Value Reference Range Interpretation Comments TSH, THIRD GENERATION (test code 4.890 UIU/ML = 2821) COMPREHENSIVE METABOLIC [id number] 00:00:00 Test Item Value Reference Range Interpretation Comments GLUCOSE (test code = 2217) 121 MG/DL BUN (test code = 2208) 40 MG/DL CREATININE (test code = 2214) 1.48 MG/DL eGFR AMER. (test code 45 ML/MIN/1.73 = 06097) eGFR NON- AMER. (test 39 ML/MIN/1.73 code = 24983) CALC BUN/CREAT (test code = 27 RATIO [...] code = 2219) 20 U/L COMPREHENSIVE METABOLIC [id number] 00:00:00 Test Item Value Reference Range Interpretation Comments GLUCOSE (test code = 2217) 121 MG/DL BUN (test code = 2208) 40 MG/DL CREATININE (test code = 2214) 1.48 MG/DL eGFR AMER. (test code 45 ML/MIN/1.73 = 79764) eGFR NON- AMER. (test 39 ML/MIN/1.73 code = 73273) CALC BUN/CREAT (test code = 27 RATIO [...] ALT (test code = 2219) 20 U/L [id number] 00:00:00 Test Item Value Reference Range Interpretation Comments TSH, THIRD GENERATION (test code 4.890 UIU/ML = 2821) [id number] 00:00:00 Test Item Value Reference Range Interpretation Comments TSH, THIRD GENERATION (test code 4.890 UIU/ML = 2821) [id number] 00:00:00 Test Item Value Reference Range Interpretation Comments TSH, THIRD GENERATION (test code 4.890 UIU/ML = 2821) COMPREHENSIVE METABOLIC [id number] 00:00:00 Test Item Value Reference Range Interpretation Comments GLUCOSE (test code = 2217) 121 MG/DL BUN (test code = 2208) 40 MG/DL CREATININE (test code = 2214) 1.48 MG/DL eGFR AMER. (test code 45 ML/MIN/1.73 = 47378) eGFR NON- AMER. (test 39 ML/MIN/1.73 code = 64727) CALC BUN/CREAT (test code = 27 RATIO [...] code = 2219) 20 U/L COMPREHENSIVE METABOLIC [id number] 00:00:00 Test Item Value Reference Range Interpretation Comments GLUCOSE (test code = 2217) 121 MG/DL BUN (test code = 2208) 40 MG/DL CREATININE (test code = 2214) 1.48 MG/DL eGFR AMER. (test code 45 ML/MIN/1.73 = 17161) eGFR NON- AMER. (test 39 ML/MIN/1.73 code = 15457) CALC BUN/CREAT (test code = 27 RATIO [...] ALT (test code = 2219) 20 U/L [id number] 00:00:00 Test Item Value Reference Range Interpretation Comments TSH, THIRD GENERATION (test code 4.890 UIU/ML = 2821) [id number] 00:00:00 Test Item Value Reference Range Interpretation Comments TSH, THIRD GENERATION (test code 4.890 UIU/ML = 2821) COMPREHENSIVE METABOLIC [id number] 00:00:00 Test Item Value Reference Range Interpretation Comments GLUCOSE (test code = 2217) 121 MG/DL BUN (test code = 2208) 40 MG/DL CREATININE (test code = 2214) 1.48 MG/DL eGFR AMER. (test code 45 ML/MIN/1.73 = 28857) eGFR NON- AMER. (test 39 ML/MIN/1.73 code = 18741) CALC BUN/CREAT (test code = 27 RATIO [...] ALT (test code = 2219) 20 U/L [id number] 00:00:00 Test Item Value Reference Range Interpretation Comments TSH, THIRD GENERATION (test code 4.890 UIU/ML = 2821) [id number] 00:00:00 Test Item Value Reference Range Interpretation Comments TSH, THIRD GENERATION (test code 4.890 UIU/ML = 2821) [id number] 00:00:00 Test Item Value Reference Range Interpretation Comments TSH, THIRD GENERATION (test code 4.890 UIU/ML = 2821) COMPREHENSIVE METABOLIC [id number] 00:00:00 Test Item Value Reference Range Interpretation Comments GLUCOSE (test code = 2217) 121 MG/DL BUN (test code = 2208) 40 MG/DL CREATININE (test code = 2214) 1.48 MG/DL eGFR AMER. (test code 45 ML/MIN/1.73 = 82192) eGFR NON- AMER. (test 39 ML/MIN/1.73 code = 26945) CALC BUN/CREAT (test code = 27 RATIO [...] code = 2219) 20 U/L COMPREHENSIVE METABOLIC [id number] 00:00:00 Test Item Value Reference Range Interpretation Comments GLUCOSE (test code = 2217) 121 MG/DL BUN (test code = 2208) 40 MG/DL CREATININE (test code = 2214) 1.48 MG/DL eGFR AMER. (test code 45 ML/MIN/1.73 = 95320) eGFR NON- AMER. (test 39 ML/MIN/1.73 code = 92174) CALC BUN/CREAT (test code = 27 RATIO [...] (test code = 2219) 20 U/L LIPID [id number] 00:00:00 Test Item Value Reference Range Interpretation Comments CHOLESTEROL (test code = 2210) 261 MG/DL TRIGLYCERIDES (test code = 2232) 165 MG/DL HDL CHOLESTEROL (test code = 2220) 58 MG/DL CALC LDL CHOL (test code = 2237) 170 MG/DL RISK RATIO LDL/HDL (test code = 2.93 RATIO 2238) LIPID [id number] 00:00:00 Test Item Value Reference Range Interpretation Comments CHOLESTEROL (test code = 2210) 261 MG/DL TRIGLYCERIDES (test code = 2232) 165 MG/DL HDL CHOLESTEROL (test code = 2220) 58 MG/DL CALC LDL CHOL (test code = 2237) 170 MG/DL RISK RATIO LDL/HDL (test code = 2.93 RATIO 2238) CBC W/AUTO [id number] 00:00:00 Test Item Value Reference Range Interpretation [...] code = 1015) 378 K/UL CBC W/AUTO [id number] 00:00:00 Test Item Value Reference Range Interpretation [...] code = 1015) 378 K/UL CBC W/AUTO [id number] 00:00:00 Test Item Value Reference Range Interpretation [...] (test code = 1015) 378 K/UL HEMOGLOBIN [id number] 00:00:00 Test Item Value Reference Range Interpretation Comments HEMOGLOBIN A1c (test code = 56773) 6.4 % HEMOGLOBIN [id number] 00:00:00 Test Item Value Reference Range Interpretation Comments HEMOGLOBIN A1c (test code = 69496) 6.4 % HEMOGLOBIN [id number] 00:00:00 Test Item Value Reference Range Interpretation Comments HEMOGLOBIN A1c (test code = 10408) 6.4 % [id number] 00:00:00 Test Item Value Reference Range Interpretation Comments TSH (test code = 2821) 5.290 UIU/ML [id number] 00:00:00 Test Item Value Reference Range Interpretation Comments TSH (test code = 2821) 5.290 UIU/ML [id number] 00:00:00 Test Item Value Reference Range Interpretation Comments TSH (test code = 2821) 5.290 UIU/ML LIPID [id number] 00:00:00 Test Item Value Reference Range Interpretation Comments CHOLESTEROL (test code = 2210) 261 MG/DL TRIGLYCERIDES (test code = 2232) 165 MG/DL HDL CHOLESTEROL (test code = 2220) 58 MG/DL CALC LDL CHOL (test code = 2237) 170 MG/DL RISK RATIO LDL/HDL (test code = 2.93 RATIO 2238) LIPID [id number] 00:00:00 Test Item Value Reference Range Interpretation Comments CHOLESTEROL (test code = 2210) 261 MG/DL TRIGLYCERIDES (test code = 2232) 165 MG/DL HDL CHOLESTEROL (test code = 2220) 58 MG/DL CALC LDL CHOL (test code = 2237) 170 MG/DL RISK RATIO LDL/HDL (test code = 2.93 RATIO 2238) CBC W/AUTO [id number] 00:00:00 Test Item Value Reference Range Interpretation [...] code = 1015) 378 K/UL CBC W/AUTO [id number] 00:00:00 Test Item Value Reference Range Interpretation [...] code = 1015) 378 K/UL CBC W/AUTO [id number] 00:00:00 Test Item Value Reference Range Interpretation [...] (test code = 1015) 378 K/UL HEMOGLOBIN [id number] 00:00:00 Test Item Value Reference Range Interpretation Comments HEMOGLOBIN A1c (test code = 55265) 6.4 % HEMOGLOBIN [id number] 00:00:00 Test Item Value Reference Range Interpretation Comments HEMOGLOBIN A1c (test code = 93554) 6.4 % HEMOGLOBIN [id number] 00:00:00 Test Item Value Reference Range Interpretation Comments HEMOGLOBIN A1c (test code = 53142) 6.4 % [id number] 00:00:00 Test Item Value Reference Range Interpretation Comments TSH (test code = 2821) 5.290 UIU/ML [id number] 00:00:00 Test Item Value Reference Range Interpretation Comments TSH (test code = 2821) 5.290 UIU/ML [id number] 00:00:00 Test Item Value Reference Range Interpretation Comments TSH (test code = 2821) 5.290 UIU/ML LIPID [id number] 00:00:00 Test Item Value Reference Range Interpretation Comments CHOLESTEROL (test code = 2210) 261 MG/DL TRIGLYCERIDES (test code = 2232) 165 MG/DL HDL CHOLESTEROL (test code = 2220) 58 MG/DL CALC LDL CHOL (test code = 2237) 170 MG/DL RISK RATIO LDL/HDL (test code = 2.93 RATIO 2238) CBC W/AUTO [id number] 00:00:00 Test Item Value Reference Range Interpretation [...] code = 1015) 378 K/UL CBC W/AUTO [id number] 00:00:00 Test Item Value Reference Range Interpretation [...] (test code = 1015) 378 K/UL HEMOGLOBIN [id number] 00:00:00 Test Item Value Reference Range Interpretation Comments HEMOGLOBIN A1c (test code = 03171) 6.4 % HEMOGLOBIN [id number] 00:00:00 Test Item Value Reference Range Interpretation Comments HEMOGLOBIN A1c (test code = 13380) 6.4 % [id number] 00:00:00 Test Item Value Reference Range Interpretation Comments TSH (test code = 2821) 5.290 UIU/ML [id number] 00:00:00 Test Item Value Reference Range Interpretation Comments TSH (test code = 2821) 5.290 UIU/ML LIPID [id number] 00:00:00 Test Item Value Reference Range Interpretation Comments CHOLESTEROL (test code = 2210) 261 MG/DL TRIGLYCERIDES (test code = 2232) 165 MG/DL HDL CHOLESTEROL (test code = 2220) 58 MG/DL CALC LDL CHOL (test code = 2237) 170 MG/DL RISK RATIO LDL/HDL (test code = 2.93 RATIO 2238) LIPID [id number] 00:00:00 Test Item Value Reference Range Interpretation Comments CHOLESTEROL (test code = 2210) 261 MG/DL TRIGLYCERIDES (test code = 2232) 165 MG/DL HDL CHOLESTEROL (test code = 2220) 58 MG/DL CALC LDL CHOL (test code = 2237) 170 MG/DL RISK RATIO LDL/HDL (test code = 2.93 RATIO 2238) CBC W/AUTO [id number] 00:00:00 Test Item Value Reference Range Interpretation [...] code = 1015) 378 K/UL CBC W/AUTO [id number] 00:00:00 Test Item Value Reference Range Interpretation [...] code = 1015) 378 K/UL CBC W/AUTO [id number] 00:00:00 Test Item Value Reference Range Interpretation [...] (test code = 1015) 378 K/UL HEMOGLOBIN [id number] 00:00:00 Test Item Value Reference Range Interpretation Comments HEMOGLOBIN A1c (test code = 58836) 6.4 % HEMOGLOBIN [id number] 00:00:00 Test Item Value Reference Range Interpretation Comments HEMOGLOBIN A1c (test code = 33372) 6.4 % HEMOGLOBIN [id number] 00:00:00 Test Item Value Reference Range Interpretation Comments HEMOGLOBIN A1c (test code = 21308) 6.4 % [id number] 00:00:00 Test Item Value Reference Range Interpretation Comments TSH (test code = 2821) 5.290 UIU/ML [id number] 00:00:00 Test Item Value Reference Range Interpretation Comments TSH (test code = 2821) 5.290 UIU/ML [id number] 00:00:00 Test Item Value Reference Range Interpretation [...] code = 2821) 1.030 UIU/ML COMPREHENSIVE METABOLIC [id number] 00:00:00 Test Item Value Reference Range Interpretation Comments GLUCOSE (test code = 2217) 106 MG/DL BUN (test code = 2208) 23 MG/DL CREATININE (test code = 2214) 0.66 MG/DL eGFR AMER. (test code 114 ML/MIN/1.73 = 98884) eGFR NON- AMER. (test 99 ML/MIN/1.73 code = 80308) CALC BUN/CREAT (test code = 35 RATIO [...] code = 2219) 31 U/L COMPREHENSIVE METABOLIC [id number] 00:00:00 Test Item Value Reference Range Interpretation Comments GLUCOSE (test code = 2217) 106 MG/DL BUN (test code = 2208) 23 MG/DL CREATININE (test code = 2214) 0.66 MG/DL eGFR AMER. (test code 114 ML/MIN/1.73 = 43509) eGFR NON- AMER. (test 99 ML/MIN/1.73 code = 76163) CALC BUN/CREAT (test code = 35 RATIO [...] code = 2821) 0.335 UIU/ML COMPREHENSIVE METABOLIC [id number] 00:00:00 Test Item Value Reference Range Interpretation Comments GLUCOSE (test code = 2217) 106 MG/DL BUN (test code = 2208) 23 MG/DL CREATININE (test code = 2214) 0.66 MG/DL eGFR AMER. (test code 114 ML/MIN/1.73 = 08614) eGFR NON- AMER. (test 99 ML/MIN/1.73 code = 36835) CALC BUN/CREAT (test code = 35 RATIO [...] code = 2219) 31 U/L COMPREHENSIVE METABOLIC [id number] 00:00:00 Test Item Value Reference Range Interpretation Comments GLUCOSE (test code = 2217) 106 MG/DL BUN (test code = 2208) 23 MG/DL CREATININE (test code = 2214) 0.66 MG/DL eGFR AMER. (test code 114 ML/MIN/1.73 = 58653) eGFR NON- AMER. (test 99 ML/MIN/1.73 code = 99288) CALC BUN/CREAT (test code = 35 RATIO [...] code = 2821) 0.335 UIU/ML COMPREHENSIVE METABOLIC [id number] 00:00:00 Test Item Value Reference Range Interpretation Comments GLUCOSE (test code = 2217) 106 MG/DL BUN (test code = 2208) 23 MG/DL CREATININE (test code = 2214) 0.66 MG/DL eGFR AMER. (test code 114 ML/MIN/1.73 = 10116) eGFR NON- AMER. (test 99 ML/MIN/1.73 code = 21594) CALC BUN/CREAT (test code = 35 RATIO [...] code = 2821) 0.335 UIU/ML COMPREHENSIVE METABOLIC [id number] 00:00:00 Test Item Value Reference Range Interpretation Comments GLUCOSE (test code = 2217) 106 MG/DL BUN (test code = 2208) 23 MG/DL CREATININE (test code = 2214) 0.66 MG/DL eGFR AMER. (test code 114 ML/MIN/1.73 = 77093) eGFR NON- AMER. (test 99 ML/MIN/1.73 code = 36864) CALC BUN/CREAT (test code = 35 RATIO [...] code = 2219) 31 U/L COMPREHENSIVE METABOLIC [id number] 00:00:00 Test Item Value Reference Range Interpretation Comments GLUCOSE (test code = 2217) 106 MG/DL BUN (test code = 2208) 23 MG/DL CREATININE (test code = 2214) 0.66 MG/DL eGFR AMER. (test code 114 ML/MIN/1.73 = 93691) eGFR NON- AMER. (test 99 ML/MIN/1.73 code = 09530) CALC BUN/CREAT (test code = 35 RATIO [...] code = 2821) 0.335 UIU/ML COMPREHENSIVE METABOLIC [id number] 00:00:00 Test Item Value Reference Range Interpretation Comments GLUCOSE (test code = 2217) 103 MG/DL BUN (test code = 2208) 15 MG/DL CREATININE (test code = 2214) 0.77 MG/DL eGFR AMER. (test code 101 ML/MIN/1.73 = 78324) eGFR NON- AMER. (test 87 ML/MIN/1.73 code = 60178) CALC BUN/CREAT (test code = 19 RATIO [...] code = 2219) 24 U/L COMPREHENSIVE METABOLIC [id number] 00:00:00 Test Item Value Reference Range Interpretation Comments GLUCOSE (test code = 2217) 103 MG/DL BUN (test code = 2208) 15 MG/DL CREATININE (test code = 2214) 0.77 MG/DL eGFR AMER. (test code 101 ML/MIN/1.73 = 92869) eGFR NON- AMER. (test 87 ML/MIN/1.73 code = 10616) CALC BUN/CREAT (test code = 19 RATIO [...] code = 2821) 0.424 UIU/ML COMPREHENSIVE METABOLIC [id number] 00:00:00 Test Item Value Reference Range Interpretation Comments GLUCOSE (test code = 2217) 103 MG/DL BUN (test code = 2208) 15 MG/DL CREATININE (test code = 2214) 0.77 MG/DL eGFR AMER. (test code 101 ML/MIN/1.73 = 59159) eGFR NON- AMER. (test 87 ML/MIN/1.73 code = 08060) CALC BUN/CREAT (test code = 19 RATIO [...] code = 2219) 24 U/L COMPREHENSIVE METABOLIC [id number] 00:00:00 Test Item Value Reference Range Interpretation Comments GLUCOSE (test code = 2217) 103 MG/DL BUN (test code = 2208) 15 MG/DL CREATININE (test code = 2214) 0.77 MG/DL eGFR AMER. (test code 101 ML/MIN/1.73 = 76894) eGFR NON- AMER. (test 87 ML/MIN/1.73 code = 24337) CALC BUN/CREAT (test code = 19 RATIO [...] code = 2821) 0.424 UIU/ML COMPREHENSIVE METABOLIC [id number] 00:00:00 Test Item Value Reference Range Interpretation Comments GLUCOSE (test code = 2217) 103 MG/DL BUN (test code = 2208) 15 MG/DL CREATININE (test code = 2214) 0.77 MG/DL eGFR AMER. (test code 101 ML/MIN/1.73 = 71533) eGFR NON- AMER. (test 87 ML/MIN/1.73 code = 48518) CALC BUN/CREAT (test code = 19 RATIO [...] code = 2821) 0.424 UIU/ML COMPREHENSIVE METABOLIC [id number] 00:00:00 Test Item Value Reference Range Interpretation Comments GLUCOSE (test code = 2217) 103 MG/DL BUN (test code = 2208) 15 MG/DL CREATININE (test code = 2214) 0.77 MG/DL eGFR AMER. (test code 101 ML/MIN/1.73 = 82809) eGFR NON- AMER. (test 87 ML/MIN/1.73 code = 50664) CALC BUN/CREAT (test code = 19 RATIO [...] code = 2219) 24 U/L COMPREHENSIVE METABOLIC [id number] 00:00:00 Test Item Value Reference Range Interpretation Comments GLUCOSE (test code = 2217) 103 MG/DL BUN (test code = 2208) 15 MG/DL CREATININE (test code = 2214) 0.77 MG/DL eGFR AMER. (test code 101 ML/MIN/1.73 = 92578) eGFR NON- AMER. (test 87 ML/MIN/1.73 code = [id number]) CALC BUN/CREAT (test code = 19 RATIO [...] (test code = 2821) 0.424 UIU/ML CULTURE, [id number] 00:00:00 Test Item Value Reference Range Interpretation Comments CULTURE, URINE (test SPECIMEN NUMBER: code = 16234) [id number] CULTURE, [id number] 00:00:00 Test Item Value Reference Range Interpretation Comments CULTURE, URINE (test SPECIMEN NUMBER: code = 72633) [id number] CULTURE, [id number] 00:00:00 Test Item Value Reference Range Interpretation Comments CULTURE, URINE (test SPECIMEN NUMBER: code = 52403) [id number] CULTURE, [id number] 00:00:00 Test Item Value Reference Range Interpretation Comments CULTURE, URINE (test SPECIMEN NUMBER: code = 34809) [id number] CULTURE, [id number] 00:00:00 Test Item Value Reference Range Interpretation Comments CULTURE, URINE (test SPECIMEN NUMBER: code = 57316) [id number] CULTURE, [id number] 00:00:00 Test Item Value Reference Range Interpretation Comments CULTURE, URINE (test SPECIMEN NUMBER: code = 72718) [id number] CULTURE, [id number] 00:00:00 Test Item Value Reference Range Interpretation Comments CULTURE, URINE (test SPECIMEN NUMBER: code = 51547) [id number] CULTURE, [id number] 00:00:00 Test Item Value Reference Range Interpretation Comments CULTURE, URINE (test SPECIMEN NUMBER: code = 28106) [id number] CULTURE, [id number] 00:00:00 Test Item Value Reference Range Interpretation Comments CULTURE, URINE (test SPECIMEN NUMBER: code = 80933) [id number] CULTURE, [id number] 00:00:00 Test Item Value Reference Range Interpretation Comments CULTURE, URINE (test SPECIMEN NUMBER: code = 19540) [id number] CULTURE, [id number] 00:00:00 Test Item Value Reference Range Interpretation Comments CULTURE, URINE (test SPECIMEN NUMBER: code = 79069) [id number] CULTURE, [id number] 00:00:00 Test Item Value Reference Range Interpretation Comments CULTURE, URINE (test SPECIMEN NUMBER: code = 56966) [id number] CULTURE, [id number] 00:00:00 Test Item Value Reference Range Interpretation Comments CULTURE, URINE (test SPECIMEN NUMBER: code = 53798) [id number] CULTURE, [id number] 00:00:00 Test Item Value Reference Range Interpretation Comments CULTURE, URINE (test SPECIMEN NUMBER: code = 97762) [id number]
[2022-07-29] MEDS ORDERED: methocarbamoL 750 MG TAB ONE (04:45)
[2022-07-29] MEDS ORDERED: IBUPROFEN 400 MG TAB ONE (04:46)
--- NOTE | 2022-07-29 05:11 | EDPHYS ---
Physician Documentation [facility] Name: Jaimie Amanda Age: 61 yrs Sex: Female : 1960 Arrival Date: 07/29/2022 Time: 03:30 Bed 19 Private MD: ED Physician Remy Solis HPI: 07/29 04:14 This 61 yrs old Female presents to ER via Unassigned with complaints of Back sp4 Pain. 04:14 The patient presents with pain that is acute. sp4 05:06 Very pleasant 61-year-old female comes in for acute onset lower back pain 2 to 3 hours sp4 ago when awakened. Patient states back pain was onset spontaneous on awakening and is equally distributed the right and left lower lumbar section close to the pelvis. Patient denied any weakness in the legs, denies numbness denied incontinence of urine. Historical: - Allergies: 04:14 hydrochlorothiazide; jb4 - Home Meds: 04:14 Clonidine Oral [Active]; jb4 - PMHx: 04:14 Anxiety; Chronic Abdominal Pain; Hypertensive disorder; Hypothyroidism; low NA; NIDDM; jb4 - PSHx: 04:14 Thyroidectomy; jb4 - Immunization history:: Reported to be up-to-date. - Social history:: Patient/guardian denies using alcohol, street drugs, IV drugs, caffeine, over the counter diet medications, tobacco products. - Family history:: not pertinent. ROS: 05:06 Constitutional: Negative for fever, chills, and weight loss, Eyes: Negative for injury, sp4 pain, redness, and discharge, ENT: Negative for injury, pain, and discharge, Neck: Negative for injury, pain, and swelling, Cardiovascular: Negative for chest pain, palpitations, and edema, Respiratory: Negative for shortness of breath, cough, wheezing, and pleuritic chest pain, Abdomen/GI: Negative for abdominal pain, nausea, vomiting, diarrhea, and constipation, Back: Negative for injury and pain, : Negative for injury, bleeding, discharge, and swelling, MS/Extremity: Negative for injury and deformity, Skin: Negative for injury, rash, and discoloration, Neuro: Negative for headache, weakness, numbness, tingling, and seizure, Psych: Negative for depression, anxiety, Allergy/Immunology: Negative for hives, rash, and allergies Endocrine: Negative for neck swelling, polydipsia, polyuria, polyphagia, and weight changes Hematologic/Lymphatic: Negative for swollen nodes, abnormal bleeding, and unusual bruising Exam: 05:06 Constitutional: This is a well developed, well nourished patient who is awake, alert, sp4 and in no acute distress. Head/Face: Normocephalic, atraumatic. Eyes: Pupils equal round and reactive to light, extra-ocular motions intact. Lids and lashes normal. Conjunctiva and sclera are not injected. Cornea within normal limits. Periorbital areas with no swelling, redness, or edema. ENT: Nares patent. No nasal discharge, no septal abnormalities noted. Tympanic membranes are normal and external auditory canals are clear. Oropharynx with no redness, swelling, or masses, exudates, or evidence of obstruction, uvula midline. Mucous membranes moist. Neck: Trachea midline, no thyromegaly or masses palpated, and no cervical lymphadenopathy. Supple, full range of motion without nuchal rigidity, or vertebral point tenderness. No Meningismus. Chest/axilla: Normal chest wall appearance and motion. Nontender with no deformity. No lesions are appreciated. Cardiovascular: Regular rate and rhythm with a normal S1 and S2. No gallops, murmurs, or rubs. Normal PMI, no JVD. No pulse deficits. Respiratory: Lungs have equal breath sounds bilaterally, clear to auscultation and percussion. No rales, rhonchi or wheezes noted. No increased work of breathing, no retractions or nasal flaring. Abdomen/GI: Soft, non-tender, with normal bowel sounds. No distension or tympany. No guarding or rebound. No evidence of tenderness throughout. Back: No spinal tenderness. No costovertebral tenderness. There is bilateral paraspinous muscular tenderness at the L-spine. Midline is nontender Skin: Warm, dry with normal turgor. Normal color with no rashes, no lesions, and no evidence of cellulitis. MS/ Extremity: Pulses equal, no cyanosis. Neurovascular intact. Full, normal range of motion. Neuro: Awake and alert, GCS 15, oriented to person, place, time, and situation. Cranial nerves II-XII grossly intact. Motor strength 5/5 in all extremities. Sensory grossly intact. Psych: Awake, alert, with orientation to person, place and time. Behavior, mood, and affect are within normal limits Vital Signs: 04:43 BP 115 / 78; Pulse 69; Resp 16; Temp 97.6(O); Pulse Ox 97% on R/A; jb4 MDM: 04:15 Patient medically screened. sp4 05:06 Differential diagnosis: chronic back pain, Fatigue Joint Injury Osteoarthritis sp4 Scoliosis spinal injury. Data reviewed: vital signs, nurses notes, old medical records. ED course: Old record review reveals patient with multiple visits for various complaints to the emergency department, old record does not suggest any significant problem, that is emergent in nature. On examination patient has normal bilateral lower extremity strength, normal gait, normal sensation, there is no sign of spinal compressive symptoms, no signs of spinal radiculopathy, no signs of sciatica, and no additional red flags on exam. Patient is stable for discharge home with as needed [id number] ibuprofen as needed for back pain. 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 Administered Medications: 04:43 Drug: Ibuprofen PO 800 mg Route: PO; jb4 04:43 Drug: Methocarbamol PO 1500 mg Route: PO; jb4 Disposition Summary: 07/29/22 05:11 Discharge Ordered Location: Home sp4 Problem: new sp4 Symptoms: have improved sp4 Condition: Stable sp4 Diagnosis - Low back pain sp4 - Acute musculoskeletal lower back pain, acute paraspinous muscular tenderness sp4 Followup: sp4 - With: Private Physician - When: 5 - 6 days - Reason: Recheck today's complaints Discharge Instructions: - Discharge Summary Sheet sp4 - Acute Back Pain, Adult sp4 Signatures: Bharathi Campos RN RN jb4 Remy Solis MD MD sp4
--- NOTE | 2022-07-29 05:11 | ER ---
Nurse's Notes [facility] Name: Jaimie Amanda Age: 61 yrs Sex: Female : 1960 Arrival Date: 07/29/2022 Time: 03:30 Bed 19 Private MD: Diagnosis: Low back pain;Acute musculoskeletal lower back pain, acute paraspinous muscular tenderness Presentation: 07/29 04:16 Chief complaint: Patient states: I woke up a couple hours ago and my lower back was jb4 killing me. Coronavirus screen: At this time, the client does not indicate any symptoms associated with coronavirus-19. Ebola Screen: No symptoms or risks identified at this time. Initial Sepsis Screen: Does the patient meet any 2 criteria? No. Patient's initial sepsis screen is negative. Does the patient have a suspected source of infection? No. Patient's initial sepsis screen is negative. Risk Assessment: Do you want to hurt yourself or someone else? Patient reports no desire to harm self or others. Onset of symptoms was July 29, 2022. Transition of care: patient was not received from another setting of care. 04:16 Method Of Arrival: Ambulatory jb4 04:16 Acuity: ZHEN 4 jb4 Historical: - Allergies: 04:14 hydrochlorothiazide; jb4 - Home Meds: 04:14 Clonidine Oral [Active]; jb4 - PMHx: 04:14 Anxiety; Chronic Abdominal Pain; Hypertensive disorder; Hypothyroidism; low NA; NIDDM; jb4 - PSHx: 04:14 Thyroidectomy; jb4 - Immunization history:: Reported to be up-to-date. - Social history:: Patient/guardian denies using alcohol, street drugs, IV drugs, caffeine, over the counter diet medications, tobacco products. - Family history:: not pertinent. Screenin:[facility] ED Fall Risk Assessment (Adult) History of falling in the last 3 months, jb4 including since admission No falls in past 3 months (0 pts) Confusion or Disorientation No (0 pts) Score/Fall Risk Level 0 - 2 = Low Risk Oriented to surroundings, Maintained a safe environment. Abuse screen: Denies threats or abuse. Nutritional screening: No deficits noted. Tuberculosis screening: No symptoms or risk factors identified. Assessment: 04:15 General: Appears in no apparent distress. comfortable. Pain: Complains of pain in mid jb4 back area Pain does not radiate. Pain currently is 6 out of 10 on a pain scale. Neuro: Level of Consciousness is awake, alert, obeys commands, Oriented to person, place, time, situation. Cardiovascular: Patient's skin is warm and dry. Respiratory: Airway is patent Respiratory effort is even, unlabored, Respiratory pattern is regular, symmetrical. GI: No signs and/or symptoms were reported involving the gastrointestinal system. : No signs and/or symptoms were reported regarding the genitourinary system. EENT: No signs and/or symptoms were reported regarding the EENT system. Derm: Skin is intact, Skin is pink, warm \T\ dry. Musculoskeletal: Circulation, motion, and sensation intact. Range of motion: intact in all extremities. 04:50 Reassessment: Patient appears in no apparent distress at this time. Patient and/or jb4 family updated on plan of care and expected duration. Pain level reassessed. Patient is alert, oriented x 3, equal unlabored respirations, skin warm/dry/pink. Pt received medications and left ED after. Vital Signs: 04:43 BP 115 / 78; Pulse 69; Resp 16; Temp 97.6(O); Pulse Ox 97% on R/A; jb4 ED Course: 03:35 Patient arrived in ED. ja2 04:13 Remy Solis MD is Attending Physician. sp4 04:14 Bharathi Campos, RN is Primary Nurse. jb4 04:17 Triage completed. jb4 04:50 Patient has correct armband on for positive identification. Bed in low position. Call jb4 light in reach. Side rails up X 1. 04:50 No provider procedures requiring assistance completed. Patient did not have IV access jb4 during this emergency room visit. Administered Medications: 04:43 Drug: Ibuprofen PO 800 mg Route: PO; jb4 04:43 Drug: Methocarbamol PO 1500 mg Route: PO; jb4 Medication: 04:50 VIS not applicable for this client. jb4 Outcome: 05:11 Discharge ordered by . sp4 05:17 Discharged to home ambulatory. jb4 05:17 Condition: stable 05:17 Discharge instructions given to patient, Instructed on discharge instructions, follow up and referral plans. Demonstrated understanding of instructions, follow-up care. 05:17 Patient left the ED. jb4 Signatures: Bharathi Campos RN RN jb4 Sandi Carrasco ja2 Remy Solis MD MD sp4
[2022-07-29 05:27] VITALS: BP 115/78; TEMP 97.6; O2SAT 97
== END 2022-07-29 05:17 | disposition home or self-care (01) ==
LOC: ER 03:30
DX: M62.830 Muscle spasm of back (principal); Z88.8 Allergy status to other drugs, medicaments and biological substances

== ENCOUNTER 2022-07-29 10:03 | Inpatient (IN) | payer OTHER ==
--- OUTSIDE RECORDS SUMMARY | 2022-07-29 10:16 | XMS REPORT | Continuity of Care Document ---
:1960 Author Organization [facility] t Address [address] [place] [address] [place] [address] Care Team Providers Name Role Phone Sharpless Primary Care Physician MATT SIMPSON Attending Clinician Unavailable MATT SIMPSON Attending Clinician Unavailable Doctor Unassigned, [place] Attending Clinician Unavailable WALLY KRISHNAMURTHY Attending Clinician Unavailable Natacha Brewster Attending Clinician Payers Payer Name Policy Type Policy Number Effective Date Expiration Date Sarina castelan [facility] [id number] 2017 00:00:00 PLUS Problems This patient has [...] ers OPHEN INGREDI 07-27 ity of 00:00: [place] [facility] Hmg-Coa Propensi Inactiv Reductas [...] Cente r Alcohol intake 2016-05-01 2016-05-01 Current [facility] 00:00:00 00:00:00 non-drinker of Medical nter alcohol (finding) Sex Assigned At [birth year] [facility] 00:00:00 00:00:00 [facility] Smoking Status Start Date Stop Date Source Smokes tobacco daily 2016-05-01 00:00:00 [facility] Medications [...] [facility] 10:23: nightly. [facility] anjelica [address] PARoxetine 2017-0 Yes 40mg QD Take [address] (PAXIL) 40 2-23 by [facility] 10:23: nightly. [facility]jel[facility] [address] OXcarbazepi 2017-0 Yes 600mg Q.[id number] Take [address] [facility] [address] ne 2-23 [id number] mg by [facility] (TRILEPTAL) 10:23: 3D mouth 3 Med ical 600 [facility] 59 (three) Center tablet times daily. PARoxetine 2017-0 Yes 40mg QD Take [address] (PAXIL) 40 2-23 by [facility] 10:23: nightly. [address] OXcarbazepi 2017-0 Yes 600mg Q.[id number] Take [address] [address] ne 2-23 [id number] [facility] (TRILEPTAL) 10:23: 3D mouth 3 Med ical 600 [facility] 59 (three) Center tablet times daily. PARoxetine 2017-0 Yes 40mg QD Take [address] (PAXIL) 40 2-23 [facility] 10:23: nightly. [address] 2017-0 Yes 600mg Q.[id number] Take [address] ne 2-23 [id number] [facility] (TRILEPTAL) 10:23: 3D mouth 3 Med ical 600 [facility] 59 (three) Center tablet times daily. PARoxetine 2017-0 Yes 40mg QD Take [address] (PAXIL) 40 2-23 [facility] 10:23: nightly. [address] 2017-0 Yes 600mg Q.[id number] Take [address] ne 2-23 [id number] [facility] (TRILEPTAL) 10:23: 3D mouth 3 Med ical 600 [facility] 59 (three) Center tablet times daily. PARoxetine 2017-0 Yes 40mg QD Take [address] (PAXIL) 40 2-23 [facility] 10:23: nightly. [address] OXcarbazepi 2017-0 Yes 600mg Q.[id number] Take [address] ne 2-23 [id number] [facility] (TRILEPTAL) 10:23: 3D mouth 3 Med ical 600 [facility] 59 (three) Center tablet times daily. PARoxetine 2017-0 Yes 40mg QD Take [address] (PAXIL) 40 2-23 by [facility] 10:23: nightly. [address] OXcarbazepi 2017-0 Yes 600mg Q.[id number] Take [address] ne 2-23 [id number] [facility] (TRILEPTAL) 10:23: 3D mouth 3 Med ical 600 MG 59 (three) Center tablet times daily. PARoxetine 2017-0 Yes 40mg QD Take [address] (PAXIL) 40 2-23 by [facility] 10:23: nightly. [address] OXcarbazepi 2017-0 Yes 600mg Q.[id number] Take [address] ne 2-23 [id number] [facility] (TRILEPTAL) 10:23: 3D mouth 3 Med ical 600 [facility] 59 (three) Center tablet times daily. PARoxetine 2017-0 Yes 40mg QD Take [address] (PAXIL) 40 2-23 by [facility] 10:23: nightly. [address] OXcarbazepi 2017-0 Yes 600mg Q.[id number] Take [address] ne 2-23 [id number] [facility] (TRILEPTAL) 10:23: 3D mouth 3 Med ical 600 [facility] 59 (three) Center tablet times daily. OXcarbazepi 2017-0 Yes 600mg Q.[id number] Take [address] ne 2-23 [id number] [facility] (TRILEPTAL) 10:23: 3D mouth 3 Med ical 600 [facility] 59 (three) Center tablet times daily. PARoxetine 2017-0 Yes 40mg QD Take [address] (PAXIL) 40 2-23 by [facility] 10:23: nightly. [address] OXcarbazepi 2017-0 Yes 600mg Q.[id number] Take [address] ne 2-23 [id number] [facility] (TRILEPTAL) 10:23: 3D mouth 3 Med ical 600 MG 59 (three) Center tablet times daily. PARoxetine 2017-0 Yes 40mg QD Take [address] (PAXIL) 40 2-23 by [facility] 10:23: nightly. [address] OXcarbazepi 2017-0 Yes 600mg Q.[id number] Take [address] ne 2-23 [id number] [facility] (TRILEPTAL) 10:23: 3D mouth 3 Med ical 600 [facility] 59 (three) Center tablet times daily. PARoxetine 2017-0 Yes 40mg QD Take [address] (PAXIL) 40 2-23 by [facility] 10:23: nightly. [address] PARoxetine 2017-0 Yes 40mg QD Take [address] (PAXIL) 40 2-23 by [facility] 10:23: nightly. [address] OXcarbazepi 2017-0 Yes 600mg Q.[id number] Take [address] ne 2-23 [id number] [facility] (TRILEPTAL) 10:23: 3D mouth 3 Med ical 600 MG 59 (three) Center tablet times daily. PARoxetine 2017-0 Yes 40mg QD Take [address] (PAXIL) 40 2-23 by [facility] 10:23: nightly. [address] OXcarbazepi 2017-0 Yes 600mg Q.[id number] Take [address] ne 2-23 [id number] [facility] (TRILEPTAL) 10:23: 3D mouth 3 Med ical 600 MG 59 (three) Center tablet times daily. PARoxetine 2017-0 Yes 40mg QD Take [address] (PAXIL) 40 2-23 by [facility] 10:23: nightly. [address] OXcarbazepi 2017-0 Yes 600mg Q.[id number] Take [address] ne 2-23 [id number] [facility] (TRILEPTAL) 10:23: 3D mouth 3 Med ical 600 MG 59 (three) Center tablet times daily. PARoxetine 2017-0 Yes 40mg QD Take [address] (PAXIL) 40 2-23 by [facility] 10:23: nightly. [address] OXcarbazepi 2017-0 Yes 600mg Q.[id number] Take [address] ne 2-23 [id number] [facility] (TRILEPTAL) 10:23: 3D mouth 3 Med ical 600 [facility] 59 (three) Center tablet times daily. PARoxetine 2017-0 Yes 40mg QD Take [address] (PAXIL) 40 2-23 by [facility] 10:23: nightly. [facility] [address] OXcarbazepi 2017-0 Yes 600mg Q.[id number] Take [address] ne 2-23 [id number] [facility] (TRILEPTAL) 10:23: 3D mouth 3 Med ical 600 [facility] 59 (three) Center tablet times daily. PARoxetine 2017-0 Yes 40mg QD Take [address] (PAXIL) 40 2-23 by [facility] 10:23: nightly. [facility] anjelica [address] OXcarbazepi 2017-0 Yes 600mg Q.[id number] Take [address] ne 2-23 [id number] mg [facility] (TRILEPTAL) 10:23: 3D mouth 3 Med ical 600 [facility] 59 (three) Center tablet times daily. PARoxetine 2017-0 Yes 40mg QD Take [address] (PAXIL) 40 2-23 by [facility] 10:23: nightly. [facility] [address] OXcarbazepi 2017-0 Yes 600mg Q.[id number] Take [address] ne 2-23 [id number] mg [facility] (TRILEPTAL) 10:23: 3D mouth 3 Med ical 600 [facility] 59 (three) Center tablet times daily. PARoxetine 2017-0 Yes 40mg QD Take [address] (PAXIL) 40 2-23 by [facility] 10:23: nightly. [facility] [address] OXcarbazepi 2017-0 Yes 600mg Q.[id number] Take [address] ne 2-23 [id number] mg [facility] (TRILEPTAL) 10:23: 3D mouth 3 Med ical 600 [facility] 59 (three) Center tablet times daily. PARoxetine 2017-0 Yes 40mg QD Take [address] (PAXIL) 40 2-23 by [facility] 10:23: nightly. [facility] anjelica [address] OXcarbazepi 2017-0 Yes 600mg Q.[id number] Take [address] ne 2-23 [id number] mg by [facility] (TRILEPTAL) 10:23: 3D mouth 3 Med ical 600 [facility] 59 (three) Center tablet times daily. OXcarbazepi 2017-0 Yes 600mg Q.[id number] Take [address] ne 2-23 [id number] [facility] (TRILEPTAL) 10:23: 3D mouth 3 Med ical 600 [facility] 59 (three) Center tablet times daily. PARoxetine 2017-0 Yes 40mg QD Take [address] (PAXIL) 40 2-23 by [facility] 10:23: nightly. [facility] [address] OXcarbazepi 2017-0 Yes 600mg Q.[id number] Take [address] ne 2-23 [id number] mg by [facility] (TRILEPTAL) 10:23: 3D mouth 3 Med ical 600 MG 59 (three) Center tablet times daily. PARoxetine 2017-0 Yes 40mg QD Take [address] (PAXIL) 40 2-23 by [facility] 10:23: nightly. [address] OXcarbazepi 2017-0 Yes 600mg Q.[id number] Take [address] ne 2-23 [id number] mg [facility] (TRILEPTAL) 10:23: 3D mouth 3 Med ical 600 [facility] 59 (three) Center tablet times daily. PARoxetine 2017-0 Yes 40mg QD Take [address] (PAXIL) 40 2-23 by [facility] 10:23: nightly. [address] PARoxetine 2017-0 Yes 40mg QD Take [address] (PAXIL) 40 2-23 by [facility] 10:23: nightly. [address] OXcarbazepi 2017-0 Yes 600mg Q.[id number] Take [address] ne 2-23 [id number] [facility] (TRILEPTAL) 10:23: 3D mouth 3 Med ical 600 MG 59 (three) Center tablet times daily. PARoxetine 2017-0 Yes 40mg QD Take [address] (PAXIL) 40 2-23 by [facility] 10:23: nightly. [address] OXcarbazepi 2017-0 Yes 600mg Q.[id number] Take [address] ne 2-23 [id number] mg [facility] (TRILEPTAL) 10:23: 3D mouth 3 Med ical 600 MG 59 (three) Center tablet times daily. PARoxetine 2017-0 Yes 40mg QD Take [address] (PAXIL) 40 2-23 by [facility] 10:23: nightly. [address] 2017-0 Yes 600mg Q.[id number] Take [address] ne 2-23 [id number] mg [facility] (TRILEPTAL) 10:23: 3D mouth 3 Med ical 600 [facility] 59 (three) Center tablet times daily. PARoxetine 2017-0 Yes 40mg QD Take [address] (PAXIL) 40 2-23 by [facility] 10:23: nightly. [address] 2017-0 Yes 600mg Q.[id number] Take [address] ne 2-23 [id number] mg [facility] (TRILEPTAL) 10:23: 3D mouth 3 Med ical 600 [facility] 59 (three) Center tablet times daily. PARoxetine 2017-0 Yes 40mg QD Take [address] (PAXIL) 40 2-23 by [facility] 10:23: nightly. [address] 2017-0 Yes 600mg Q.[id number] Take [address] ne 2-23 [id number] mg by [facility] (TRILEPTAL) 10:23: 3D mouth 3 Med ical 600 [facility] 59 (three) Center tablet times daily. PARoxetine 2017-0 Yes 40mg QD Take [address] (PAXIL) 40 2-23 by [facility] 10:23: nightly. [address] 2017-0 Yes 600mg Q.[id number] Take [address] ne 2-23 [id number] mg by [facility] (TRILEPTAL) 10:23: 3D mouth 3 Med ical 600 MG 59 (three) Center tablet times daily. PARoxetine 2017-0 Yes 40mg QD Take [address] (PAXIL) 40 2-23 by [facility] 10:23: nightly. [address] 2017-0 Yes 600mg Q.[id number] Take [address] ne 2-23 [id number] mg by [facility] (TRILEPTAL) 10:23: 3D mouth 3 Med ical 600 [facility] 59 (three) Center tablet times daily. PARoxetine 2017-0 Yes 40mg QD Take [address] (PAXIL) 40 2-23 by [facility] 10:23: nightly. [address] 2017-0 Yes 600mg Q.[id number] Take [address] ne 2-23 [id number] mg by [facility] (TRILEPTAL) 10:23: 3D mouth 3 Med ical 600 MG 59 (three) Center tablet times daily. PARoxetine 2017-0 Yes 40mg QD Take [address] (PAXIL) 40 2-23 by [facility] 10:23: nightly. [address] 2017-0 Yes 600mg Q.[id number] Take [address] ne 2-23 [id number] mg by [facility] (TRILEPTAL) 10:23: 3D mouth 3 Med ical 600 MG 59 (three) Center tablet times daily. PARoxetine 2017-0 Yes 40mg QD Take [address] (PAXIL) 40 2-23 by [facility] 10:23: nightly. [address] 2017-0 Yes 600mg Q.[id number] Take [address] ne 2-23 [id number] mg by [facility] (TRILEPTAL) 10:23: 3D mouth 3 Med ical 600 [facility] 59 (three) Center tablet times daily. PARoxetine 2017-0 Yes 40mg QD Take [address] (PAXIL) 40 2-23 by mouth [facility] 10:23: nightly. [address] 2017-0 Yes 600mg Q.[id number] Take [address] ne 2-23 [id number] mg [facility] (TRILEPTAL) 10:23: 3D mouth 3 Med ical 600 MG 59 (three) Center tablet times daily. PARoxetine 2017-0 Yes 40mg QD Take [address] (PAXIL) 40 2-23 by mouth [facility] 10:23: nightly. [address] OXcarbazepi 2017-0 Yes 600mg Q.[id number] Take [address] ne 2-23 [id number] [facility] (TRILEPTAL) 10:23: 3D mouth 3 Med ical 600 MG 59 (three) Center tablet times daily. PARoxetine 2017-0 Yes 40mg QD Take [address] (PAXIL) 40 2-23 by [facility] 10:23: nightly. [facility] [address] OXcarbazepi 2017-0 Yes 600mg Q.[id number] Take [address] ne 2-23 [id number] mg by [facility] (TRILEPTAL) 10:23: 3D mouth 3 Med ical 600 [facility] 59 (three) Center tablet times daily. PARoxetine 2017-0 Yes 40mg QD Take [address] (PAXIL) 40 2-23 by [facility] 10:23: nightly. [facility] [address] OXcarbazepi 2017-0 Yes 600mg Q.[id number] Take [address] ne 2-23 [id number] mg by [facility] (TRILEPTAL) 10:23: 3D mouth 3 Med ical 600 [facility] 59 (three) Center tablet times daily. OXcarbazepi 2017-0 Yes 600mg Q.[id number] Take [address] ne 2-23 [id number] mg by [facility] (TRILEPTAL) 10:23: 3D mouth 3 Med ical 600 [facility] 59 (three) Center tablet times daily. PARoxetine 2017-0 Yes 40mg QD Take [address] (PAXIL) 40 2-23 by mouth [facility] 10:23: nightly. [address] OXcarbazepi 2017-0 Yes 600mg Q.04760813 Take [address] ne 2-23 [id number] mg by [facility] (TRILEPTAL) 10:23: 3D mouth 3 Med ical 600 [facility] 59 (three) Center tablet times daily. PARoxetine 2017-0 Yes 40mg QD Take [address] (PAXIL) 40 2-23 by [facility] 10:23: nightly. [facility] [address] OXcarbazepi 2017-0 Yes 600mg Q.38063271 Take [address] ne 2-23 [id number] mg by [facility] (TRILEPTAL) 10:23: 3D mouth [...] Goal Plan of Care Note [code = 10948-6] Goal Plan of Care Note [code = 12544-8] Goal Plan of Care Note [code = 04571-5] Goal Plan of Care Note [code = 43849-2] Goal Plan of Care Note [code = 61851-4] Goal Plan of Care Note [code = 58167-9] Goal Plan of Care Note [code = 39184-5] Goal Plan of Care Note [code = 31986-6] Goal Plan of Care Note [code = 37681-6] Goal Plan of Care Note [code = 02921-5] Goal Plan of Care Note [code = 46935-7] Goal Plan of Care Note [code = 85440-0] Goal Plan of Care Note [code = 56303-7] Goal Plan of Care Note [code = 83975-2] Goal Plan of Care Note [code = 80579-2] Goal Plan of Care Note [code = 29900-0] Goal Plan of Care Note [code = 03258-2] Goal Plan of Care Note [code = 01375-4] Goal Plan of Care Note [code = 85587-6] Goal Plan of Care Note [code = 63027-2] Goal Plan of Care Note [code = 19419-7] Goal Plan of Care Note [code = 38482-5] Goal Plan of Care Note [code = 09885-6] Goal Plan of Care Note [code = 62121-6] Goal Plan of Care Note [code = 61006-6] Goal Plan of Care Note [code = 12264-6] Goal Plan of Care Note [code = 43258-9] Goal Plan of Care Note [code = 87885-3] Goal Plan of Care Note [code = 64190-2] Goal Plan of Care Note [code = 64390-7] Goal Plan of Care Note [code = 39389-3] Goal Plan of Care Note [code = 03271-7] Goal Plan of Care Note [code = 73863-5] Goal Plan of Care Note [code = 20831-6] Goal Plan of Care Note [code = 36087-8] Goal Plan of Care Note [code = 71255-4] Goal Plan of Care Note [code = 49395-6] Goal Plan of Care Note [code = 11746-2] Goal Plan of Care Note [code = 81575-1] Goal Plan of Care Note [code = 33049-6] Goal Plan of Care Note [code = 68057-8] Goal Plan of Care Note [code = 01885-6] Goal Plan of Care Note [code = 69000-9] Goal Plan of Care Note [code = 13531-1] Goal Plan of Care Note [code = 24053-4] Goal Plan of Care Note [code = 20902-0] Goal Plan of Care Note [code = 98609-3] Goal Plan of Care Note [code = 09817-4] Goal Plan of Care Note [code = 54541-9] Goal Plan of Care Note [code = 57096-7] Goal Plan of Care Note [code = 86319-7] Goal Plan of Care Note [code = 25972-0] Goal Plan of Care Note [code = 39868-4] Goal Plan of Care Note [code = 67265-9] Goal Plan of Care Note [code = 66085-6] Goal Plan of Care Note [code = 28118-7] Goal Plan of Care Note [code = 71414-0] Goal Plan of Care Note [code = 65176-2] Goal Plan of Care Note [code = 50379-6] Goal Plan of Care Note [code = 33825-0] Goal Plan of Care Note [code = 59797-4] Goal Plan of Care Note [code = 11546-3] Goal Plan of Care Note [code = 48657-5] Goal Plan of Care Note [code = 78349-8] Goal Plan of Care Note [code = 77007-6] Goal Plan of Care Note [code = 31408-1] Goal Plan of Care Note [code = 07643-9] Goal Plan of Care Note [code = 82698-0] Goal Plan of Care Note [code = 90706-1] Goal Plan of Care Note [code = 92088-8] Goal Plan of Care Note [code = 39579-7] Goal Plan of Care Note [code = 91098-8] Goal Plan of Care Note [code = 80634-1] Goal Plan of Care Note [code = 97439-3] Goal Plan of Care Note [code = 34878-5] Goal Plan of Care Note [code = 86713-7] Goal Plan of Care Note [code = 82099-5] Goal Plan of Care Note [code = 41200-8] Goal Plan of Care Note [code = 60166-8] Goal Plan of Care Note [code = 77780-0] Goal Plan of Care Note [code = 48102-1] Goal Plan of Care Note [code = 06900-3] Goal Plan of Care Note [code = 61994-4] Goal Plan of Care Note [code = 92355-0] Goal Plan of Care Note [code = 29787-6] Goal Plan of Care Note [code = 04612-4] Goal Plan of Care Note [code = 58674-5] Goal Plan of Care Note [code = 71205-0] Goal Plan of Care Note [code = 15823-7] Goal Plan of Care Note [code = 52761-2] Goal Plan of Care Note [code = 57514-1] Goal Plan of Care Note [code = 22127-5] Goal Plan of Care Note [code = 61624-4] Goal Plan of Care Note [code = 17740-2] Goal Plan of Care Note [code = 82351-0] Goal Plan of Care Note [code = 45558-5] Goal Plan of Care Note [code = 74379-2] Goal Plan of Care Note [code = 37078-7] Goal Plan of Care Note [code = 48767-3] Goal Plan of Care Note [code = 13812-7] Goal Plan of Care Note [code = 34051-6] Goal Plan of Care Note [code = 02869-5] Goal Plan of Care Note [code = 08116-3] Goal Plan of Care Note [code = 86426-6] Goal Plan of Care Note [code = 37740-4] Goal Plan of Care Note [code = 85248-8] Goal Plan of Care Note [code = 18856-3] Goal Plan of Care Note [code = 22631-1] Goal Plan of Care Note [code = 57827-8] Goal Plan of Care Note [code = 27026-5] Goal Plan of Care Note [code = 14566-9] Goal Plan of Care Note [code = 39058-6] Goal Plan of Care Note [code = 41756-0] Goal Plan of Care Note [code = 31981-2] Goal Plan of Care Note [code = 77039-0] Goal Plan of Care Note [code = 48280-6] Goal Plan of Care Note [code = 12823-6] Goal Plan of Care Note [code = 22620-6] Goal Plan of Care Note [code = 32471-6] Goal Plan of Care Note [code = 38905-8] Goal Plan of Care Note [code = 74137-9] Goal Plan of Care Note [code = 80616-3] Goal Plan of Care Note [code = 73157-2] Goal Plan of Care Note [code = 83309-5] Goal Plan of Care Note [code = 17257-8] Goal Plan of Care Note [code = 17410-8] Goal Plan of Care Note [code = 78512-7] Goal Plan of Care Note [code = 91122-5] Goal Plan of Care Note [code = 86529-3] Goal Plan of Care Note [code = 12645-7] Goal Plan of Care Note [code = 49604-3] Goal Plan of Care Note [code = 67183-3] Goal Plan of Care Note [code = 54246-1] Goal Plan of Care Note [code = 01022-0] Goal Plan of Care Note [code = 89437-4] Goal Plan of Care Note [code = 64631-2] Goal Plan of Care Note [code = 71139-5] Goal Plan of Care Note [code = 46682-1] Goal Plan of Care Note [code = 83573-7] Goal Plan of Care Note [code = 15737-0] Goal Plan of Care Note [code = 16574-0] Goal Plan of Care Note [code = 36525-0] Goal Plan of Care Note [code = 53747-3] Goal Plan of Care Note [code = 87502-8] Goal Plan of Care Note [code = 59472-5] Goal Plan of Care Note [code = 72510-4] Goal Plan of Care Note [code = 43489-2] Goal Plan of Care Note [code = 93978-1] Goal Plan of Care Note [code = 38391-7] Goal Plan of Care Note [code = 84282-1] Goal Plan of Care Note [code = 44369-5] Goal Plan of Care Note [code = 27637-6] Goal Plan of Care Note [code = 60175-8] Goal Plan of Care Note [code = 52685-0] Goal Plan of Care Note [code = 46615-8] Goal Plan of Care Note [code = 91015-5] Goal Plan of Care Note [code = 90427-9] Goal Plan of Care Note [code = 79158-6] Goal Plan of Care Note [code = 74314-0] Goal Plan of Care Note [code = 83946-7] Goal Plan of Care Note [code = 75061-8] Goal Plan of Care Note [code = 03264-2] Goal Plan of Care Note [code = 46150-1] Goal Plan of Care Note [code = 34926-6] Goal Plan of Care Note [code = 08020-3] Goal Plan of Care Note [code = 71871-9] Goal Plan of Care Note [code = 62118-7] Goal Plan of Care Note [code = 00255-4] Goal Plan of Care Note [code = 20131-6] Goal Plan of Care Note [code = 27565-4] Goal Plan of Care Note [code = 15349-2] Goal Plan of Care Note [code = 86344-1] Goal Plan of Care Note [code = 35898-3] Goal Plan of Care Note [code = 44676-5] Goal Plan of Care Note [code = 85752-1] Goal Plan of Care Note [code = 53536-4] Goal Plan of Care Note [code = 14933-8] Goal Plan of Care Note [code = 96902-5] Goal Plan of Care Note [code = 83671-4] Goal Plan of Care Note [code = 49158-3] Goal Plan of Care Note [code = 56893-3] Goal Plan of Care Note [code = 25946-1] Goal Plan of Care Note [code = 61111-0] Goal Plan of Care Note [code = 52134-5] Goal Plan of Care Note [code = 11580-6] Goal Plan of Care Note [code = 65315-1] Goal Plan of Care Note [code = 09170-5] Goal Plan of Care Note [code = 34575-7] Goal Plan of Care Note [code = 21728-6] Goal Plan of Care Note [code = 16063-1] Goal Plan of Care Note [code = 77181-1] Goal Plan of Care Note [code = 18269-4] Goal Plan of Care Note [code = 90948-3] Goal Plan of Care Note [code = 30290-5] Goal Plan of Care Note [code = 94352-3] Goal Plan of Care Note [code = 89238-4] Goal Plan of Care Note [code = 80090-4] Goal Plan of Care Note [code = 90057-9] Goal Plan of Care Note [code = 66502-9] Goal Plan of Care Note [code = 77794-5] Goal Plan of Care Note [code = 48434-5] Goal Plan of Care Note [code = 80211-2] Goal Plan of Care Note [code = 38670-8] Goal Plan of Care Note [code = 80020-9] Goal Plan of Care Note [code = 35791-4] Goal Plan of Care Note [code = 23033-7] Goal Plan of Care Note [code = 26068-9] Goal Plan of Care Note [code = 41328-4] Encounters Start End Encounter Admission Attending Care Care Encounter Source Date/Time Date/Time Type Type Clinicians Facility Department ID 2021-06-01 Outpatient [facility] [id number] [place] 01:36:29 [id number] [facility] 2022-05-24 2022-05-24 Outpatient [facility] SFA [id number] Cristian 10:36:59 10:36:59 0318 F Jerman 2022-02-11 2022-02-11 Outpatient [facility] S[facility] [id number] Cristian 09:04:48 09:04:48 1206 F Jerman 2022-02-10 2022-02-10 Outpatient [facility] SFA [id number] Cristian 09:29:34 09:29:34 1205 F Jerman 2022-02-10 2022-02-10 Outpatient [id number] 00:00:00 00:00:00 Visit 4089-4cab 089-4cab-9 -6qm9-r7r bf5-c7c336 [id number] [id number] 2022-01-10 2022-01-10 Outpatient [facility] SFA [id number] 022 Cristian 09:16:14 09:16:14 1104 F Jerman 2022-01-10 2022-01-10 Outpatient [id number] accaa6-a 00:00:00 00:00:00 Visit aca9-4c83 ca9-4c83-a -p3kp-ew0 7eb-bc13f3 [id number] [id number] 2021-12-19 2021-12-19 Outpatient [facility]FA SFA [id number] 022 Cristian 16:11:31 16:11:31 1013 F Jerman 2021-12-19 2021-12-19 Outpatient [id number] 00:00:00 00:00:00 Visit i255-025a 770-441f-a -adae-62b amelia-62bace axqyr35io fd81af 2021-09-17 2021-09-17 Outpatient [id number]- [id number] i8imhx-5 00:00:00 00:00:00 Visit 935a-4f50 35a-4f50-b -m24y-s6l 77d-c2ba85 [id number] 2020-08-03 2020-08-03 Outpatient MATT VÁSQUEZ [facility] [id number] [facility] 10:00:00 10:00:00 MATT SIMPSON [facility] 2020-07-25 2020-07-25 Orders Doctor ABE [id number] 00:00:00 00:00:00 Only Unassigned, BK 350.1.13.10 [facility] 4.2.7.2.686 [id number] 2019-09-26 2019-09-26 Outpatient Bertin KRISHNAMURTHY [facility] [id number] [facility] 16:00:00 16:00:00 [facility] 2018-10-21 2018-10-21 Telephone Gramm, [facility] [id number] 00:00:00 00:00:00 Natacha Nguyen [id number] Ade 4.2.7.2.686 [facility] [id number] [facility] [address] Results Test Description Test Time Test Comments Results Result Comments Source TSH, THIRD GENERATION 2022-05-26 02:57:49 Test Item Value Reference Range Interpretation Comme nts TSH, THIRD GENERATION (test code = 2821) 6.350 UIU/ML 0.400-4.100 H LIPID [id number] 01:09:34 Test Item Value Reference Range Interpretation [...] /CalcLDL-C RISK RATIO LDL/HDL 2.73 RATIO <3.22 [facility] has important (test code = 2238) pathology staff changes effecti ve 05/07/2022. New pathology staff will provide uninter rupted, excellent patie nt care and clinical consultation. S ee URL: [email or web address]. UNLE SS OTHERWISE INDIC ATED, ALL TESTING PER FOR[facility] AT [facility] FOR[facility] [address] [place] [id number] [place] [address] EMMA DIRECTOR: CAM GUTHRIE M.D. CLIA NUMBER [id number] CAP ACCREDITATION N O. [id number] HEMOGLOBIN [id number] 03:17:24 Test Item Value Reference Range Interpretation Comments HEMOGLOBIN A1c (test 6.4 % 4.2-5.6 H AMERIC AN DIABETES code = 66074) ASSOCIATION IDELINES FOR HGB A1C: PREDIABETES/INC REASED [...] TESTING OR LABORATORY C ONSULTATION. TSH, THIRD [id number] 05:15:49 Test Item Value Reference Range Interpretation Comments TSH, THIRD GENERATION (test code 2.080 UIU/ML 0.400-4.100 = 2821) HEMOGLOBIN [id number] 03:46:00 Test Item Value Reference Range Interpretation Comments HEMOGLOBIN A1c (test 6.6 % 4.2-5.6 H AMERIC AN DIABETES code = 83347) ASSOCIATION IDELINES FOR HGB A1C: PREDIABETES/INC REASED [...] TESTING PER FORMED ATCLINICAL PATH OLOGY LABORATORIES, [facility]. [address] [address] LABORATORY DIRE CTOR: DIANA RUSS M.D. [place] NUMBER [id number] [facility] [place]. [id number] LIPID [id number] 02:59:52 Test Item Value Reference Range Interpretation [...] MOREINFORMATION , SEE CLIENT ANNOUNCE MENT AT [email or web address] [email or web address] RATIO LDL/HDL 4.02 RATIO <3.22 H (test code = 2238) [id number] 00:00:00 Test Item Value Reference Range Interpretation Comments TSH, THIRD GENERATION (test code 2.080 UIU/ML = 2821) [id number] 00:00:00 Test Item Value Reference Range Interpretation Comments TSH, THIRD GENERATION (test code 2.080 UIU/ML = 2821) [id number] 00:00:00 Test Item Value Reference Range Interpretation Comments TSH, THIRD GENERATION (test code 2.080 UIU/ML = 2821) LIPID [id number] 00:00:00 Test Item Value Reference Range Interpretation Comments CHOLESTEROL (test code = 2210) 292 MG/DL TRIGLYCERIDES (test code = 2232) 184 MG/DL HDL CHOLESTEROL (test code = 2220) 51 MG/DL CALC LDL CHOL (test code = 2237) 205 MG/DL RISK RATIO LDL/HDL (test code = 4.02 RATIO 2238) LIPID [id number] 00:00:00 Test Item Value Reference Range Interpretation Comments CHOLESTEROL (test code = 2210) 292 MG/DL TRIGLYCERIDES (test code = 2232) 184 MG/DL HDL CHOLESTEROL (test code = 2220) 51 MG/DL CALC LDL CHOL (test code = 2237) 205 MG/DL RISK RATIO LDL/HDL (test code = 4.02 RATIO 2238) HEMOGLOBIN [id number] 00:00:00 Test Item Value Reference Range Interpretation Comments HEMOGLOBIN A1c (test code = 06029) 6.6 % HEMOGLOBIN [id number] 00:00:00 Test Item Value Reference Range Interpretation Comments HEMOGLOBIN A1c (test code = 65308) 6.6 % HEMOGLOBIN [id number] 00:00:00 Test Item Value Reference Range Interpretation Comments HEMOGLOBIN A1c (test code = 38745) 6.6 % [id number] 00:00:00 Test Item Value Reference Range Interpretation Comments TSH, THIRD GENERATION (test code 2.080 UIU/ML = 2821) [id number] 00:00:00 Test Item Value Reference Range Interpretation Comments TSH, THIRD GENERATION (test code 2.080 UIU/ML = 2821) [id number] 00:00:00 Test Item Value Reference Range Interpretation Comments TSH, THIRD GENERATION (test code 2.080 UIU/ML = 2821) LIPID [id number] 00:00:00 Test Item Value Reference Range Interpretation Comments CHOLESTEROL (test code = 2210) 292 MG/DL TRIGLYCERIDES (test code = 2232) 184 MG/DL HDL CHOLESTEROL (test code = 2220) 51 MG/DL CALC LDL CHOL (test code = 2237) 205 MG/DL RISK RATIO LDL/HDL (test code = 4.02 RATIO 2238) LIPID [id number] 00:00:00 Test Item Value Reference Range Interpretation Comments CHOLESTEROL (test code = 2210) 292 MG/DL TRIGLYCERIDES (test code = 2232) 184 MG/DL HDL CHOLESTEROL (test code = 2220) 51 MG/DL CALC LDL CHOL (test code = 2237) 205 MG/DL RISK RATIO LDL/HDL (test code = 4.02 RATIO 2238) HEMOGLOBIN [id number] 00:00:00 Test Item Value Reference Range Interpretation Comments HEMOGLOBIN A1c (test code = 89346) 6.6 % HEMOGLOBIN [id number] 00:00:00 Test Item Value Reference Range Interpretation Comments HEMOGLOBIN A1c (test code = 35425) 6.6 % HEMOGLOBIN [id number] 00:00:00 Test Item Value Reference Range Interpretation Comments HEMOGLOBIN A1c (test code = 23911) 6.6 % [id number] 00:00:00 Test Item Value Reference Range Interpretation Comments TSH, THIRD GENERATION (test code 2.080 UIU/ML = 2821) [id number] 00:00:00 Test Item Value Reference Range Interpretation Comments TSH, THIRD GENERATION (test code 2.080 UIU/ML = 2821) LIPID [id number] 00:00:00 Test Item Value Reference Range Interpretation Comments CHOLESTEROL (test code = 2210) 292 MG/DL TRIGLYCERIDES (test code = 2232) 184 MG/DL HDL CHOLESTEROL (test code = 2220) 51 MG/DL CALC LDL CHOL (test code = 2237) 205 MG/DL RISK RATIO LDL/HDL (test code = 4.02 RATIO 2238) HEMOGLOBIN [id number] 00:00:00 Test Item Value Reference Range Interpretation Comments HEMOGLOBIN A1c (test code = 40863) 6.6 % HEMOGLOBIN [id number] 00:00:00 Test Item Value Reference Range Interpretation Comments HEMOGLOBIN A1c (test code = 33865) 6.6 % [id number] 00:00:00 Test Item Value Reference Range Interpretation Comments TSH, THIRD GENERATION (test code 2.080 UIU/ML = 2821) [id number] 00:00:00 Test Item Value Reference Range Interpretation Comments TSH, THIRD GENERATION (test code 2.080 UIU/ML = 2821) [id number] 00:00:00 Test Item Value Reference Range Interpretation Comments TSH, THIRD GENERATION (test code 2.080 UIU/ML = 2821) LIPID [id number] 00:00:00 Test Item Value Reference Range Interpretation Comments CHOLESTEROL (test code = 2210) 292 MG/DL TRIGLYCERIDES (test code = 2232) 184 MG/DL HDL CHOLESTEROL (test code = 2220) 51 MG/DL CALC LDL CHOL (test code = 2237) 205 MG/DL RISK RATIO LDL/HDL (test code = 4.02 RATIO 2238) LIPID [id number] 00:00:00 Test Item Value Reference Range Interpretation Comments CHOLESTEROL (test code = 2210) 292 MG/DL TRIGLYCERIDES (test code = 2232) 184 MG/DL HDL CHOLESTEROL (test code = 2220) 51 MG/DL CALC LDL CHOL (test code = 2237) 205 MG/DL RISK RATIO LDL/HDL (test code = 4.02 RATIO 2238) HEMOGLOBIN [id number] 00:00:00 Test Item Value Reference Range Interpretation Comments HEMOGLOBIN A1c (test code = 36065) 6.6 % HEMOGLOBIN [id number] 00:00:00 Test Item Value Reference Range Interpretation Comments HEMOGLOBIN A1c (test code = 40986) 6.6 % HEMOGLOBIN [id number] 00:00:00 Test Item Value Reference Range Interpretation Comments HEMOGLOBIN A1c (test code = 73680) 6.6 % HEMOGLOBIN [id number] 00:00:00 Test Item Value Reference Range Interpretation Comments HEMOGLOBIN A1c (test code = 36985) 6.8 % HEMOGLOBIN [id number] 00:00:00 Test Item Value Reference Range Interpretation Comments HEMOGLOBIN A1c (test code = 38306) 6.8 % HEMOGLOBIN [id number] 00:00:00 Test Item Value Reference Range Interpretation Comments HEMOGLOBIN A1c (test code = 16099) 6.8 % LIPID [id number] 00:00:00 Test Item Value Reference Range Interpretation Comments CHOLESTEROL (test code = 2210) 303 MG/DL TRIGLYCERIDES (test code = 2232) 191 MG/DL HDL CHOLESTEROL (test code = 2220) 61 MG/DL CALC LDL CHOL (test code = 2237) 205 MG/DL RISK RATIO LDL/HDL (test code = 3.36 RATIO 2238) LIPID [id number] 00:00:00 Test Item Value Reference Range Interpretation Comments CHOLESTEROL (test code = 2210) 303 MG/DL TRIGLYCERIDES (test code = 2232) 191 MG/DL HDL CHOLESTEROL (test code = 2220) 61 MG/DL CALC LDL CHOL (test code = 2237) 205 MG/DL RISK RATIO LDL/HDL (test code = 3.36 RATIO 2238) [id number] 00:00:00 Test Item Value Reference Range Interpretation Comments TSH, THIRD GENERATION (test code 0.769 UIU/ML = 2821) [id number] 00:00:00 Test Item Value Reference Range Interpretation Comments TSH, THIRD GENERATION (test code 0.769 UIU/ML = 2821) [id number] 00:00:00 Test Item Value Reference Range Interpretation Comments TSH, THIRD GENERATION (test code 0.769 UIU/ML = 2821) COMPREHENSIVE METABOLIC [id number] 00:00:00 Test Item Value Reference Range Interpretation Comments GLUCOSE (test code = 2217) 131 MG/DL BUN (test code = 2208) 13 MG/DL CREATININE (test code = 2214) 0.65 MG/DL eGFR AMER. (test code 113 ML/MIN/1.73 = 34926) eGFR NON- AMER. (test 97 ML/MIN/1.73 code = 08967) CALC BUN/CREAT (test code = 20 RATIO [...] code = 2219) 23 U/L COMPREHENSIVE METABOLIC [id number] 00:00:00 Test Item Value Reference Range Interpretation Comments GLUCOSE (test code = 2217) 131 MG/DL BUN (test code = 2208) 13 MG/DL CREATININE (test code = 2214) 0.65 MG/DL eGFR AMER. (test code 113 ML/MIN/1.73 = 04288) eGFR NON- AMER. (test 97 ML/MIN/1.73 code = 03639) CALC BUN/CREAT (test code = 20 RATIO [...] (test code = 2219) 23 U/L HEMOGLOBIN [id number] 00:00:00 Test Item Value Reference Range Interpretation Comments HEMOGLOBIN A1c (test code = 05670) 6.8 % HEMOGLOBIN [id number] 00:00:00 Test Item Value Reference Range Interpretation Comments HEMOGLOBIN A1c (test code = 94476) 6.8 % HEMOGLOBIN [id number] 00:00:00 Test Item Value Reference Range Interpretation Comments HEMOGLOBIN A1c (test code = 64292) 6.8 % LIPID [id number] 00:00:00 Test Item Value Reference Range Interpretation Comments CHOLESTEROL (test code = 2210) 303 MG/DL TRIGLYCERIDES (test code = 2232) 191 MG/DL HDL CHOLESTEROL (test code = 2220) 61 MG/DL CALC LDL CHOL (test code = 2237) 205 MG/DL RISK RATIO LDL/HDL (test code = 3.36 RATIO 2238) LIPID [id number] 00:00:00 Test Item Value Reference Range Interpretation Comments CHOLESTEROL (test code = 2210) 303 MG/DL TRIGLYCERIDES (test code = 2232) 191 MG/DL HDL CHOLESTEROL (test code = 2220) 61 MG/DL CALC LDL CHOL (test code = 2237) 205 MG/DL RISK RATIO LDL/HDL (test code = 3.36 RATIO 2238) [id number] 00:00:00 Test Item Value Reference Range Interpretation Comments TSH, THIRD GENERATION (test code 0.769 UIU/ML = 2821) [id number] 00:00:00 Test Item Value Reference Range Interpretation Comments TSH, THIRD GENERATION (test code 0.769 UIU/ML = 2821) [id number] 00:00:00 Test Item Value Reference Range Interpretation Comments TSH, THIRD GENERATION (test code 0.769 UIU/ML = 2821) COMPREHENSIVE METABOLIC [id number] 00:00:00 Test Item Value Reference Range Interpretation Comments GLUCOSE (test code = 2217) 131 MG/DL BUN (test code = 2208) 13 MG/DL CREATININE (test code = 2214) 0.65 MG/DL eGFR AMER. (test code 113 ML/MIN/1.73 = 81080) eGFR NON- AMER. (test 97 ML/MIN/1.73 code = 02091) CALC BUN/CREAT (test code = 20 RATIO [...] code = 2219) 23 U/L COMPREHENSIVE METABOLIC [id number] 00:00:00 Test Item Value Reference Range Interpretation Comments GLUCOSE (test code = 2217) 131 MG/DL BUN (test code = 2208) 13 MG/DL CREATININE (test code = 2214) 0.65 MG/DL eGFR AMER. (test code 113 ML/MIN/1.73 = 40056) eGFR NON- AMER. (test 97 ML/MIN/1.73 code = 07312) CALC BUN/CREAT (test code = 20 RATIO [...] (test code = 2219) 23 U/L HEMOGLOBIN [id number] 00:00:00 Test Item Value Reference Range Interpretation Comments HEMOGLOBIN A1c (test code = 16501) 6.8 % HEMOGLOBIN [id number] 00:00:00 Test Item Value Reference Range Interpretation Comments HEMOGLOBIN A1c (test code = 43749) 6.8 % LIPID [id number] 00:00:00 Test Item Value Reference Range Interpretation Comments CHOLESTEROL (test code = 2210) 303 MG/DL TRIGLYCERIDES (test code = 2232) 191 MG/DL HDL CHOLESTEROL (test code = 2220) 61 MG/DL CALC LDL CHOL (test code = 2237) 205 MG/DL RISK RATIO LDL/HDL (test code = 3.36 RATIO 2238) [id number] 00:00:00 Test Item Value Reference Range Interpretation Comments TSH, THIRD GENERATION (test code 0.769 UIU/ML = 2821) [id number] 00:00:00 Test Item Value Reference Range Interpretation Comments TSH, THIRD GENERATION (test code 0.769 UIU/ML = 2821) COMPREHENSIVE METABOLIC [id number] 00:00:00 Test Item Value Reference Range Interpretation Comments GLUCOSE (test code = 2217) 131 MG/DL BUN (test code = 2208) 13 MG/DL CREATININE (test code = 2214) 0.65 MG/DL eGFR AMER. (test code 113 ML/MIN/1.73 = 42687) eGFR NON- AMER. (test 97 ML/MIN/1.73 code = 37724) CALC BUN/CREAT (test code = 20 RATIO [...] (test code = 2219) 23 U/L HEMOGLOBIN [id number] 00:00:00 Test Item Value Reference Range Interpretation Comments HEMOGLOBIN A1c (test code = 72278) 6.8 % HEMOGLOBIN [id number] 00:00:00 Test Item Value Reference Range Interpretation Comments HEMOGLOBIN A1c (test code = 57934) 6.8 % HEMOGLOBIN [id number] 00:00:00 Test Item Value Reference Range Interpretation Comments HEMOGLOBIN A1c (test code = 08506) 6.8 % LIPID [id number] 00:00:00 Test Item Value Reference Range Interpretation Comments CHOLESTEROL (test code = 2210) 303 MG/DL TRIGLYCERIDES (test code = 2232) 191 MG/DL HDL CHOLESTEROL (test code = 2220) 61 MG/DL CALC LDL CHOL (test code = 2237) 205 MG/DL RISK RATIO LDL/HDL (test code = 3.36 RATIO 2238) LIPID [id number] 00:00:00 Test Item Value Reference Range Interpretation Comments CHOLESTEROL (test code = 2210) 303 MG/DL TRIGLYCERIDES (test code = 2232) 191 MG/DL HDL CHOLESTEROL (test code = 2220) 61 MG/DL CALC LDL CHOL (test code = 2237) 205 MG/DL RISK RATIO LDL/HDL (test code = 3.36 RATIO 2238) [id number] 00:00:00 Test Item Value Reference Range Interpretation Comments TSH, THIRD GENERATION (test code 0.769 UIU/ML = 2821) [id number] 00:00:00 Test Item Value Reference Range Interpretation Comments TSH, THIRD GENERATION (test code 0.769 UIU/ML = 2821) [id number] 00:00:00 Test Item Value Reference Range Interpretation Comments TSH, THIRD GENERATION (test code 0.769 UIU/ML = 2821) COMPREHENSIVE METABOLIC [id number] 00:00:00 Test Item Value Reference Range Interpretation Comments GLUCOSE (test code = 2217) 131 MG/DL BUN (test code = 2208) 13 MG/DL CREATININE (test code = 2214) 0.65 MG/DL eGFR AMER. (test code 113 ML/MIN/1.73 = 33729) eGFR NON- AMER. (test 97 ML/MIN/1.73 code = 54459) CALC BUN/CREAT (test code = 20 RATIO [...] code = 2219) 23 U/L COMPREHENSIVE METABOLIC [id number] 00:00:00 Test Item Value Reference Range Interpretation Comments GLUCOSE (test code = 2217) 131 MG/DL BUN (test code = 2208) 13 MG/DL CREATININE (test code = 2214) 0.65 MG/DL eGFR AMER. (test code 113 ML/MIN/1.73 = 08311) eGFR NON- AMER. (test 97 ML/MIN/1.73 code = 94168) CALC BUN/CREAT (test code = 20 RATIO [...] (test code = 2219) 23 U/L HEMOGLOBIN [id number] 00:00:00 Test Item Value Reference Range Interpretation Comments HEMOGLOBIN A1c (test code = 22033) 6.6 % HEMOGLOBIN [id number] 00:00:00 Test Item Value Reference Range Interpretation Comments HEMOGLOBIN A1c (test code = 99344) 6.6 % HEMOGLOBIN [id number] 00:00:00 Test Item Value Reference Range Interpretation Comments HEMOGLOBIN A1c (test code = 40134) 6.6 % LIPID [id number] 00:00:00 Test Item Value Reference Range Interpretation Comments CHOLESTEROL (test code = 2210) 261 MG/DL TRIGLYCERIDES (test code = 2232) 159 MG/DL HDL CHOLESTEROL (test code = 2220) 82 MG/DL CALC LDL CHOL (test code = 2237) 150 MG/DL RISK RATIO LDL/HDL (test code = 1.83 RATIO 2238) LIPID [id number] 00:00:00 Test Item Value Reference Range Interpretation Comments CHOLESTEROL (test code = 2210) 261 MG/DL TRIGLYCERIDES (test code = 2232) 159 MG/DL HDL CHOLESTEROL (test code = 2220) 82 MG/DL CALC LDL CHOL (test code = 2237) 150 MG/DL RISK RATIO LDL/HDL (test code = 1.83 RATIO 2238) COMPREHENSIVE METABOLIC [id number] 00:00:00 Test Item Value Reference Range Interpretation Comments GLUCOSE (test code = 2217) 144 MG/DL BUN (test code = 2208) 15 MG/DL CREATININE (test code = 2214) 0.85 MG/DL eGFR AMER. (test code 87 ML/MIN/1.73 = 12590) eGFR NON- AMER. (test 75 ML/MIN/1.73 code = 91142) CALC BUN/CREAT (test code = 18 RATIO [...] code = 2219) 50 U/L COMPREHENSIVE METABOLIC [id number] 00:00:00 Test Item Value Reference Range Interpretation Comments GLUCOSE (test code = 2217) 144 MG/DL BUN (test code = 2208) 15 MG/DL CREATININE (test code = 2214) 0.85 MG/DL eGFR AMER. (test code 87 ML/MIN/1.73 = 57839) eGFR NON- AMER. (test 75 ML/MIN/1.73 code = 70772) CALC BUN/CREAT (test code = 18 RATIO [...] THYROX. BIND. CAPAC. (test code 1.1 = 74094) T4 (THYROXINE) (test code = 4.3 UG/DL 2819) CORRECTED T4 (FTI) (test code = 3.9 UG/DL 2820) TSH, THIRD GENERATION (test 18.900 UIU/ML code = 2821) THYROID II PROFILE (T3U, T4, T7, TSH)2020-05-23 00:00:00 Test Item Value Reference Range Interpretation Comments T-UPTAKE (test code = 2817) 30.2 % THYROX. BIND. CAPAC. (test code 1.1 = 07465) T4 (THYROXINE) (test code = 4.3 UG/DL 2819) CORRECTED T4 (FTI) (test code = 3.9 UG/DL 2820) TSH, THIRD GENERATION (test 18.900 UIU/ML code = 2821) HEMOGLOBIN [id number] 00:00:00 Test Item Value Reference Range Interpretation Comments HEMOGLOBIN A1c (test code = 47174) 6.6 % HEMOGLOBIN [id number] 00:00:00 Test Item Value Reference Range Interpretation Comments HEMOGLOBIN A1c (test code = 07188) 6.6 % HEMOGLOBIN [id number] 00:00:00 Test Item Value Reference Range Interpretation Comments HEMOGLOBIN A1c (test code = 02424) 6.6 % LIPID [id number] 00:00:00 Test Item Value Reference Range Interpretation Comments CHOLESTEROL (test code = 2210) 261 MG/DL TRIGLYCERIDES (test code = 2232) 159 MG/DL HDL CHOLESTEROL (test code = 2220) 82 MG/DL CALC LDL CHOL (test code = 2237) 150 MG/DL RISK RATIO LDL/HDL (test code = 1.83 RATIO 2238) LIPID [id number] 00:00:00 Test Item Value Reference Range Interpretation Comments CHOLESTEROL (test code = 2210) 261 MG/DL TRIGLYCERIDES (test code = 2232) 159 MG/DL HDL CHOLESTEROL (test code = 2220) 82 MG/DL CALC LDL CHOL (test code = 2237) 150 MG/DL RISK RATIO LDL/HDL (test code = 1.83 RATIO 2238) COMPREHENSIVE METABOLIC [id number] 00:00:00 Test Item Value Reference Range Interpretation Comments GLUCOSE (test code = 2217) 144 MG/DL BUN (test code = 2208) 15 MG/DL CREATININE (test code = 2214) 0.85 MG/DL eGFR AMER. (test code 87 ML/MIN/1.73 = 79869) eGFR NON- AMER. (test 75 ML/MIN/1.73 code = 98697) CALC BUN/CREAT (test code = 18 RATIO [...] code = 2219) 50 U/L COMPREHENSIVE METABOLIC [id number] 00:00:00 Test Item Value Reference Range Interpretation Comments GLUCOSE (test code = 2217) 144 MG/DL BUN (test code = 2208) 15 MG/DL CREATININE (test code = 2214) 0.85 MG/DL eGFR AMER. (test code 87 ML/MIN/1.73 = 89227) eGFR NON- AMER. (test 75 ML/MIN/1.73 code = 74469) CALC BUN/CREAT (test code = 18 RATIO [...] THYROX. BIND. CAPAC. (test code 1.1 = 43862) T4 (THYROXINE) (test code = 4.3 UG/DL 2819) CORRECTED T4 (FTI) (test code = 3.9 UG/DL 2820) TSH, THIRD GENERATION (test 18.900 UIU/ML code = 2821) THYROID II PROFILE (T3U, T4, T7, TSH)2020-05-23 00:00:00 Test Item Value Reference Range Interpretation Comments T-UPTAKE (test code = 7) 30.2 % THYROX. BIND. CAPAC. (test code 1.1 = 23890) T4 (THYROXINE) (test code = 4.3 UG/DL 2819) CORRECTED T4 (FTI) (test code = 3.9 UG/DL 2820) TSH, THIRD GENERATION (test 18.900 UIU/ML code = 2821) HEMOGLOBIN [id number] 00:00:00 Test Item Value Reference Range Interpretation Comments HEMOGLOBIN A1c (test code = 82932) 6.6 % HEMOGLOBIN [id number] 00:00:00 Test Item Value Reference Range Interpretation Comments HEMOGLOBIN A1c (test code = 35730) 6.6 % LIPID [id number] 00:00:00 Test Item Value Reference Range Interpretation Comments CHOLESTEROL (test code = 2210) 261 MG/DL TRIGLYCERIDES (test code = 2232) 159 MG/DL HDL CHOLESTEROL (test code = 2220) 82 MG/DL CALC LDL CHOL (test code = 2237) 150 MG/DL RISK RATIO LDL/HDL (test code = 1.83 RATIO 2238) COMPREHENSIVE METABOLIC [id number] 00:00:00 Test Item Value Reference Range Interpretation Comments GLUCOSE (test code = 2217) 144 MG/DL BUN (test code = 2208) 15 MG/DL CREATININE (test code = 2214) 0.85 MG/DL eGFR AMER. (test code 87 ML/MIN/1.73 = 33924) eGFR NON- AMER. (test 75 ML/MIN/1.73 code = 02223) CALC BUN/CREAT (test code = 18 RATIO [...] THYROX. BIND. CAPAC. (test code 1.1 = 72184) T4 (THYROXINE) (test code = 4.3 UG/DL 2819) CORRECTED T4 (FTI) (test code = 3.9 UG/DL 2820) TSH, THIRD GENERATION (test 18.900 UIU/ML code = 2821) HEMOGLOBIN [id number] 00:00:00 Test Item Value Reference Range Interpretation Comments HEMOGLOBIN A1c (test code = 65582) 6.6 % HEMOGLOBIN [id number] 00:00:00 Test Item Value Reference Range Interpretation Comments HEMOGLOBIN A1c (test code = 78571) 6.6 % HEMOGLOBIN [id number] 00:00:00 Test Item Value Reference Range Interpretation Comments HEMOGLOBIN A1c (test code = 27855) 6.6 % LIPID [id number] 00:00:00 Test Item Value Reference Range Interpretation Comments CHOLESTEROL (test code = 2210) 261 MG/DL TRIGLYCERIDES (test code = 2232) 159 MG/DL HDL CHOLESTEROL (test code = 2220) 82 MG/DL CALC LDL CHOL (test code = 2237) 150 MG/DL RISK RATIO LDL/HDL (test code = 1.83 RATIO 2238) LIPID [id number] 00:00:00 Test Item Value Reference Range Interpretation Comments CHOLESTEROL (test code = 2210) 261 MG/DL TRIGLYCERIDES (test code = 2232) 159 MG/DL HDL CHOLESTEROL (test code = 2220) 82 MG/DL CALC LDL CHOL (test code = 2237) 150 MG/DL RISK RATIO LDL/HDL (test code = 1.83 RATIO 2238) COMPREHENSIVE METABOLIC [id number] 00:00:00 Test Item Value Reference Range Interpretation Comments GLUCOSE (test code = 2217) 144 MG/DL BUN (test code = 2208) 15 MG/DL CREATININE (test code = 2214) 0.85 MG/DL eGFR AMER. (test code 87 ML/MIN/1.73 = 68099) eGFR NON- AMER. (test 75 ML/MIN/1.73 code = 20248) CALC BUN/CREAT (test code = 18 RATIO [...] code = 2219) 50 U/L COMPREHENSIVE METABOLIC [id number] 00:00:00 Test Item Value Reference Range Interpretation Comments GLUCOSE (test code = 2217) 144 MG/DL BUN (test code = 2208) 15 MG/DL CREATININE (test code = 2214) 0.85 MG/DL eGFR AMER. (test code 87 ML/MIN/1.73 = 96646) eGFR NON- AMER. (test 75 ML/MIN/1.73 code = 32272) CALC BUN/CREAT (test code = 18 RATIO [...] THYROX. BIND. CAPAC. (test code 1.1 = 21939) T4 (THYROXINE) (test code = 4.3 UG/DL 2819) CORRECTED T4 (FTI) (test code = 3.9 UG/DL 2820) TSH, THIRD GENERATION (test 18.900 UIU/ML code = 2821) THYROID II PROFILE (T3U, T4, T7, TSH)2020-05-23 00:00:00 Test Item Value Reference Range Interpretation Comments T-UPTAKE (test code = 7) 30.2 % THYROX. BIND. CAPAC. (test code 1.1 = 34829) T4 (THYROXINE) (test code = 4.3 UG/DL 2819) CORRECTED T4 (FTI) (test code = 3.9 UG/DL 2820) TSH, THIRD GENERATION (test 18.900 UIU/ML code = 2821) HEMOGLOBIN [id number] 00:00:00 Test Item Value Reference Range Interpretation Comments HEMOGLOBIN A1c (test code = 05654) 6.7 % HEMOGLOBIN [id number] 00:00:00 Test Item Value Reference Range Interpretation Comments HEMOGLOBIN A1c (test code = 05701) 6.7 % HEMOGLOBIN [id number] 00:00:00 Test Item Value Reference Range Interpretation Comments HEMOGLOBIN A1c (test code = 17200) 6.7 % LIPID [id number] 00:00:00 Test Item Value Reference Range Interpretation Comments CHOLESTEROL (test code = 2210) 267 MG/DL TRIGLYCERIDES (test code = 2232) 137 MG/DL HDL CHOLESTEROL (test code = 2220) 48 MG/DL CALC LDL CHOL (test code = 2237) 192 MG/DL RISK RATIO LDL/HDL (test code = 4.00 RATIO 2238) LIPID [id number] 00:00:00 Test Item Value Reference Range Interpretation Comments CHOLESTEROL (test code = 2210) 267 MG/DL TRIGLYCERIDES (test code = 2232) 137 MG/DL HDL CHOLESTEROL (test code = 2220) 48 MG/DL CALC LDL CHOL (test code = 2237) 192 MG/DL RISK RATIO LDL/HDL (test code = 4.00 RATIO 2238) COMPREHENSIVE METABOLIC [id number] 00:00:00 Test Item Value Reference Range Interpretation Comments GLUCOSE (test code = 2217) 155 MG/DL BUN (test code = 2208) 14 MG/DL CREATININE (test code = 2214) 0.52 MG/DL eGFR AMER. (test code 122 ML/MIN/1.73 = 23222) eGFR NON- AMER. (test 105 ML/MIN/1.73 code = 67671) CALC BUN/CREAT (test code = 27 RATIO [...] code = 2219) 27 U/L COMPREHENSIVE METABOLIC [id number] 00:00:00 Test Item Value Reference Range Interpretation Comments GLUCOSE (test code = 2217) 155 MG/DL BUN (test code = 2208) 14 MG/DL CREATININE (test code = 2214) 0.52 MG/DL eGFR AMER. (test code 122 ML/MIN/1.73 = 53228) eGFR NON- AMER. (test 105 ML/MIN/1.73 code = 20929) CALC BUN/CREAT (test code = 27 RATIO [...] THYROX. BIND. CAPAC. (test code 1.0 = 56460) T4 (THYROXINE) (test code = 4.7 UG/DL 2819) CORRECTED T4 (FTI) (test code = 4.7 UG/DL 2820) TSH, THIRD GENERATION (test code 0.201 UIU/ML = 2821) THYROID II PROFILE (T3U, T4, T7, TSH)2019 00:00:00 Test Item Value Reference Range Interpretation Comments T-UPTAKE (test code = 2817) 33.1 % THYROX. BIND. CAPAC. (test code 1.0 = 47588) T4 (THYROXINE) (test code = 4.7 UG/DL 2819) CORRECTED T4 (FTI) (test code = 4.7 UG/DL 2820) TSH, THIRD GENERATION (test code 0.201 UIU/ML = 2821) HEMOGLOBIN [id number] 00:00:00 Test Item Value Reference Range Interpretation Comments HEMOGLOBIN A1c (test code = 38507) 6.7 % HEMOGLOBIN [id number] 00:00:00 Test Item Value Reference Range Interpretation Comments HEMOGLOBIN A1c (test code = 70396) 6.7 % HEMOGLOBIN [id number] 00:00:00 Test Item Value Reference Range Interpretation Comments HEMOGLOBIN A1c (test code = 89627) 6.7 % LIPID [id number] 00:00:00 Test Item Value Reference Range Interpretation Comments CHOLESTEROL (test code = 2210) 267 MG/DL TRIGLYCERIDES (test code = 2232) 137 MG/DL HDL CHOLESTEROL (test code = 2220) 48 MG/DL CALC LDL CHOL (test code = 2237) 192 MG/DL RISK RATIO LDL/HDL (test code = 4.00 RATIO 2238) LIPID [id number] 00:00:00 Test Item Value Reference Range Interpretation Comments CHOLESTEROL (test code = 2210) 267 MG/DL TRIGLYCERIDES (test code = 2232) 137 MG/DL HDL CHOLESTEROL (test code = 2220) 48 MG/DL CALC LDL CHOL (test code = 2237) 192 MG/DL RISK RATIO LDL/HDL (test code = 4.00 RATIO 2238) COMPREHENSIVE METABOLIC [id number] 00:00:00 Test Item Value Reference Range Interpretation Comments GLUCOSE (test code = 2217) 155 MG/DL BUN (test code = 2208) 14 MG/DL CREATININE (test code = 2214) 0.52 MG/DL eGFR AMER. (test code 122 ML/MIN/1.73 = 39702) eGFR NON- AMER. (test 105 ML/MIN/1.73 code = 62772) CALC BUN/CREAT (test code = 27 RATIO [...] code = 2219) 27 U/L COMPREHENSIVE METABOLIC [id number] 00:00:00 Test Item Value Reference Range Interpretation Comments GLUCOSE (test code = 2217) 155 MG/DL BUN (test code = 2208) 14 MG/DL CREATININE (test code = 2214) 0.52 MG/DL eGFR AMER. (test code 122 ML/MIN/1.73 = 76194) eGFR NON- AMER. (test 105 ML/MIN/1.73 code = 50231) CALC BUN/CREAT (test code = 27 RATIO [...] THYROX. BIND. CAPAC. (test code 1.0 = 72593) T4 (THYROXINE) (test code = 4.7 UG/DL 2819) CORRECTED T4 (FTI) (test code = 4.7 UG/DL 2820) TSH, THIRD GENERATION (test code 0.201 UIU/ML = 2821) THYROID II PROFILE (T3U, T4, T7, TSH)2019 00:00:00 Test Item Value Reference Range Interpretation Comments T-UPTAKE (test code = 2817) 33.1 % THYROX. BIND. CAPAC. (test code 1.0 = 12490) T4 (THYROXINE) (test code = 4.7 UG/DL 2819) CORRECTED T4 (FTI) (test code = 4.7 UG/DL 2820) TSH, THIRD GENERATION (test code 0.201 UIU/ML = 2821) HEMOGLOBIN [id number] 00:00:00 Test Item Value Reference Range Interpretation Comments HEMOGLOBIN A1c (test code = 25407) 6.7 % HEMOGLOBIN [id number] 00:00:00 Test Item Value Reference Range Interpretation Comments HEMOGLOBIN A1c (test code = 36915) 6.7 % LIPID [id number] 00:00:00 Test Item Value Reference Range Interpretation Comments CHOLESTEROL (test code = 2210) 267 MG/DL TRIGLYCERIDES (test code = 2232) 137 MG/DL HDL CHOLESTEROL (test code = 2220) 48 MG/DL CALC LDL CHOL (test code = 2237) 192 MG/DL RISK RATIO LDL/HDL (test code = 4.00 RATIO 2238) COMPREHENSIVE METABOLIC [id number] 00:00:00 Test Item Value Reference Range Interpretation Comments GLUCOSE (test code = 2217) 155 MG/DL BUN (test code = 2208) 14 MG/DL CREATININE (test code = 2214) 0.52 MG/DL eGFR AMER. (test code 122 ML/MIN/1.73 = 79202) eGFR NON- AMER. (test 105 ML/MIN/1.73 code = 91309) CALC BUN/CREAT (test code = 27 RATIO [...] THYROX. BIND. CAPAC. (test code 1.0 = 73073) T4 (THYROXINE) (test code = 4.7 UG/DL 2819) CORRECTED T4 (FTI) (test code = 4.7 UG/DL 2820) TSH, THIRD GENERATION (test code 0.201 UIU/ML = 2821) HEMOGLOBIN [id number] 00:00:00 Test Item Value Reference Range Interpretation Comments HEMOGLOBIN A1c (test code = 47909) 6.7 % HEMOGLOBIN [id number] 00:00:00 Test Item Value Reference Range Interpretation Comments HEMOGLOBIN A1c (test code = 28077) 6.7 % HEMOGLOBIN [id number] 00:00:00 Test Item Value Reference Range Interpretation Comments HEMOGLOBIN A1c (test code = 55301) 6.7 % LIPID [id number] 00:00:00 Test Item Value Reference Range Interpretation Comments CHOLESTEROL (test code = 2210) 267 MG/DL TRIGLYCERIDES (test code = 2232) 137 MG/DL HDL CHOLESTEROL (test code = 2220) 48 MG/DL CALC LDL CHOL (test code = 2237) 192 MG/DL RISK RATIO LDL/HDL (test code = 4.00 RATIO 2238) LIPID [id number] 00:00:00 Test Item Value Reference Range Interpretation Comments CHOLESTEROL (test code = 2210) 267 MG/DL TRIGLYCERIDES (test code = 2232) 137 MG/DL HDL CHOLESTEROL (test code = 2220) 48 MG/DL CALC LDL CHOL (test code = 2237) 192 MG/DL RISK RATIO LDL/HDL (test code = 4.00 RATIO 2238) COMPREHENSIVE METABOLIC [id number] 00:00:00 Test Item Value Reference Range Interpretation Comments GLUCOSE (test code = 2217) 155 MG/DL BUN (test code = 2208) 14 MG/DL CREATININE (test code = 2214) 0.52 MG/DL eGFR AMER. (test code 122 ML/MIN/1.73 = 41475) eGFR NON- AMER. (test 105 ML/MIN/1.73 code = 95382) CALC BUN/CREAT (test code = 27 RATIO [...] code = 2219) 27 U/L COMPREHENSIVE METABOLIC [id number] 00:00:00 Test Item Value Reference Range Interpretation Comments GLUCOSE (test code = 2217) 155 MG/DL BUN (test code = 2208) 14 MG/DL CREATININE (test code = 2214) 0.52 MG/DL eGFR AMER. (test code 122 ML/MIN/1.73 = 64457) eGFR NON- AMER. (test 105 ML/MIN/1.73 code = 47926) CALC BUN/CREAT (test code = 27 RATIO [...] THYROX. BIND. CAPAC. (test code 1.0 = 08682) T4 (THYROXINE) (test code = 4.7 UG/DL 2819) CORRECTED T4 (FTI) (test code = 4.7 UG/DL 2820) TSH, THIRD GENERATION (test code 0.201 UIU/ML = 2821) THYROID II PROFILE (T3U, T4, T7, TSH)2019 00:00:00 Test Item Value Reference Range Interpretation Comments T-UPTAKE (test code = 2817) 33.1 % THYROX. BIND. CAPAC. (test code 1.0 = 78758) T4 (THYROXINE) (test code = 4.7 UG/DL 2819) CORRECTED T4 (FTI) (test code = 4.7 UG/DL 2820) TSH, THIRD GENERATION (test code 0.201 UIU/ML = 2821) SARS-CoV-2 (COVID-19) by RT-PCR (HIGH RISK)2019-09-18 00:00:00 Test Item Value Reference Range Interpretation Comments SARS-CoV-2 INTERPRETATION (test NEGATIVE code = 89115) SOURCE (test code = 63213) NOT SPECIFIED SARS-CoV-2 (COVID-19) by RT-PCR (HIGH RISK)2019-09-18 00:00:00 Test Item Value Reference Range Interpretation Comments SARS-CoV-2 INTERPRETATION (test NEGATIVE code = 97639) SOURCE (test code = 16532) NOT SPECIFIED SARS-CoV-2 (COVID-19) by RT-PCR (HIGH RISK)2019-09-18 00:00:00 Test Item Value Reference Range Interpretation Comments SARS-CoV-2 INTERPRETATION (test NEGATIVE code = 21872) SOURCE (test code = 24475) NOT SPECIFIED SARS-CoV-2 (COVID-19) by RT-PCR (HIGH RISK)2019-09-18 00:00:00 Test Item Value Reference Range Interpretation Comments SARS-CoV-2 INTERPRETATION (test NEGATIVE code = 32278) SOURCE (test code = 70080) NOT SPECIFIED SARS-CoV-2 (COVID-19) by RT-PCR (HIGH RISK)2019-09-18 00:00:00 Test Item Value Reference Range Interpretation Comments SARS-CoV-2 INTERPRETATION (test NEGATIVE code = 03127) SOURCE (test code = 04103) NOT SPECIFIED SARS-CoV-2 (COVID-19) by RT-PCR (HIGH RISK)2019-09-18 00:00:00 Test Item Value Reference Range Interpretation Comments SARS-CoV-2 INTERPRETATION (test NEGATIVE code = 30809) SOURCE (test code = 10414) NOT SPECIFIED SARS-CoV-2 (COVID-19) by RT-PCR (HIGH RISK)2019-09-18 00:00:00 Test Item Value Reference Range Interpretation Comments SARS-CoV-2 INTERPRETATION (test NEGATIVE code = 58826) SOURCE (test code = 76483) NOT SPECIFIED [id number] 00:00:00 Test Item Value Reference Range Interpretation Comments TSH, THIRD GENERATION (test code 2.490 UIU/ML = 2821) [id number] 00:00:00 Test Item Value Reference Range Interpretation Comments TSH, THIRD GENERATION (test code 2.490 UIU/ML = 2821) [id number] 00:00:00 Test Item Value Reference Range Interpretation Comments TSH, THIRD GENERATION (test code 2.490 UIU/ML = 2821) HEMOGLOBIN [id number] 00:00:00 Test Item Value Reference Range Interpretation Comments HEMOGLOBIN A1c (test code = 00689) 6.4 % HEMOGLOBIN [id number] 00:00:00 Test Item Value Reference Range Interpretation Comments HEMOGLOBIN A1c (test code = 75481) 6.4 % HEMOGLOBIN [id number] 00:00:00 Test Item Value Reference Range Interpretation Comments HEMOGLOBIN A1c (test code = 84528) 6.4 % COMPREHENSIVE METABOLIC [id number] 00:00:00 Test Item Value Reference Range Interpretation Comments GLUCOSE (test code = 2217) 206 MG/DL BUN (test code = 2208) 23 MG/DL CREATININE (test code = 2214) 0.67 MG/DL eGFR AMER. (test code 112 ML/MIN/1.73 = 84784) eGFR NON- AMER. (test 97 ML/MIN/1.73 code = 98846) CALC BUN/CREAT (test code = 34 RATIO [...] code = 2219) 25 U/L COMPREHENSIVE METABOLIC [id number] 00:00:00 Test Item Value Reference Range Interpretation Comments GLUCOSE (test code = 2217) 206 MG/DL BUN (test code = 2208) 23 MG/DL CREATININE (test code = 2214) 0.67 MG/DL eGFR AMER. (test code 112 ML/MIN/1.73 = 64662) eGFR NON- AMER. (test 97 ML/MIN/1.73 code = 77618) CALC BUN/CREAT (test code = 34 RATIO [...] ALT (test code = 2219) 25 U/L [id number] 00:00:00 Test Item Value Reference Range Interpretation Comments TSH, THIRD GENERATION (test code 2.490 UIU/ML = 2821) [id number] 00:00:00 Test Item Value Reference Range Interpretation Comments TSH, THIRD GENERATION (test code 2.490 UIU/ML = 2821) [id number] 00:00:00 Test Item Value Reference Range Interpretation Comments TSH, THIRD GENERATION (test code 2.490 UIU/ML = 2821) HEMOGLOBIN [id number] 00:00:00 Test Item Value Reference Range Interpretation Comments HEMOGLOBIN A1c (test code = 23297) 6.4 % HEMOGLOBIN [id number] 00:00:00 Test Item Value Reference Range Interpretation Comments HEMOGLOBIN A1c (test code = 55045) 6.4 % HEMOGLOBIN [id number] 00:00:00 Test Item Value Reference Range Interpretation Comments HEMOGLOBIN A1c (test code = 05424) 6.4 % COMPREHENSIVE METABOLIC [id number] 00:00:00 Test Item Value Reference Range Interpretation Comments GLUCOSE (test code = 2217) 206 MG/DL BUN (test code = 2208) 23 MG/DL CREATININE (test code = 2214) 0.67 MG/DL eGFR AMER. (test code 112 ML/MIN/1.73 = 44275) eGFR NON- AMER. (test 97 ML/MIN/1.73 code = 89739) CALC BUN/CREAT (test code = 34 RATIO [...] code = 2219) 25 U/L COMPREHENSIVE METABOLIC [id number] 00:00:00 Test Item Value Reference Range Interpretation Comments GLUCOSE (test code = 2217) 206 MG/DL BUN (test code = 2208) 23 MG/DL CREATININE (test code = 2214) 0.67 MG/DL eGFR AMER. (test code 112 ML/MIN/1.73 = 42110) eGFR NON- AMER. (test 97 ML/MIN/1.73 code = 15681) CALC BUN/CREAT (test code = 34 RATIO [...] ALT (test code = 2219) 25 U/L [id number] 00:00:00 Test Item Value Reference Range Interpretation Comments TSH, THIRD GENERATION (test code 2.490 UIU/ML = 2821) [id number] 00:00:00 Test Item Value Reference Range Interpretation Comments TSH, THIRD GENERATION (test code 2.490 UIU/ML = 2821) HEMOGLOBIN [id number] 00:00:00 Test Item Value Reference Range Interpretation Comments HEMOGLOBIN A1c (test code = 56788) 6.4 % HEMOGLOBIN [id number] 00:00:00 Test Item Value Reference Range Interpretation Comments HEMOGLOBIN A1c (test code = 99375) 6.4 % COMPREHENSIVE METABOLIC [id number] 00:00:00 Test Item Value Reference Range Interpretation Comments GLUCOSE (test code = 2217) 206 MG/DL BUN (test code = 2208) 23 MG/DL CREATININE (test code = 2214) 0.67 MG/DL eGFR AMER. (test code 112 ML/MIN/1.73 = 42566) eGFR NON- AMER. (test 97 ML/MIN/1.73 code = 52189) CALC BUN/CREAT (test code = 34 RATIO [...] ALT (test code = 2219) 25 U/L [id number] 00:00:00 Test Item Value Reference Range Interpretation Comments TSH, THIRD GENERATION (test code 2.490 UIU/ML = 2821) [id number] 00:00:00 Test Item Value Reference Range Interpretation Comments TSH, THIRD GENERATION (test code 2.490 UIU/ML = 2821) [id number] 00:00:00 Test Item Value Reference Range Interpretation Comments TSH, THIRD GENERATION (test code 2.490 UIU/ML = 2821) HEMOGLOBIN [id number] 00:00:00 Test Item Value Reference Range Interpretation Comments HEMOGLOBIN A1c (test code = 89766) 6.4 % HEMOGLOBIN [id number] 00:00:00 Test Item Value Reference Range Interpretation Comments HEMOGLOBIN A1c (test code = 96678) 6.4 % HEMOGLOBIN [id number] 00:00:00 Test Item Value Reference Range Interpretation Comments HEMOGLOBIN A1c (test code = 08346) 6.4 % COMPREHENSIVE METABOLIC [id number] 00:00:00 Test Item Value Reference Range Interpretation Comments GLUCOSE (test code = 2217) 206 MG/DL BUN (test code = 2208) 23 MG/DL CREATININE (test code = 2214) 0.67 MG/DL eGFR AMER. (test code 112 ML/MIN/1.73 = 33150) eGFR NON- AMER. (test 97 ML/MIN/1.73 code = 73430) CALC BUN/CREAT (test code = 34 RATIO [...] code = 2219) 25 U/L COMPREHENSIVE METABOLIC [id number] 00:00:00 Test Item Value Reference Range Interpretation Comments GLUCOSE (test code = 2217) 206 MG/DL BUN (test code = 2208) 23 MG/DL CREATININE (test code = 2214) 0.67 MG/DL eGFR AMER. (test code 112 ML/MIN/1.73 = 56120) eGFR NON- AMER. (test 97 ML/MIN/1.73 code = 95691) CALC BUN/CREAT (test code = 34 RATIO [...] = 2219) 25 U/L VAGINAL PATHOGENS DNA [id number] 00:00:00 Test Item Value Reference Range Interpretation Comments MARK SPECIES (test code = 12151) NEGATIVE G. VAGINALIS (test code = 39995) NEGATIVE T. VAGINALIS (test code = 52081) NEGATIVE VAGINAL PATHOGENS DNA [id number] 00:00:00 Test Item Value Reference Range Interpretation Comments MARK SPECIES (test code = 78130) NEGATIVE G. VAGINALIS (test code = 37170) NEGATIVE T. VAGINALIS (test code = 64320) NEGATIVE VAGINAL PATHOGENS DNA [id number] 00:00:00 Test Item Value Reference Range Interpretation Comments MARK SPECIES (test code = 93170) NEGATIVE G. VAGINALIS (test code = 68325) NEGATIVE T. VAGINALIS (test code = 34634) NEGATIVE VAGINAL PATHOGENS DNA [id number] 00:00:00 Test Item Value Reference Range Interpretation Comments MARK SPECIES (test code = 22698) NEGATIVE G. VAGINALIS (test code = 69628) NEGATIVE T. VAGINALIS (test code = 11377) NEGATIVE VAGINAL PATHOGENS DNA [id number] 00:00:00 Test Item Value Reference Range Interpretation Comments MARK SPECIES (test code = 90317) NEGATIVE G. VAGINALIS (test code = 17820) NEGATIVE T. VAGINALIS (test code = 31080) NEGATIVE VAGINAL PATHOGENS DNA [id number] 00:00:00 Test Item Value Reference Range Interpretation Comments MARK SPECIES (test code = 75385) NEGATIVE G. VAGINALIS (test code = 78712) NEGATIVE T. VAGINALIS (test code = 00982) NEGATIVE VAGINAL PATHOGENS DNA [id number] 00:00:00 Test Item Value Reference Range Interpretation Comments MARK SPECIES (test code = 64409) NEGATIVE G. VAGINALIS (test code = 79117) NEGATIVE T. VAGINALIS (test code = 74003) NEGATIVE HEMOGLOBIN A1c [ADDED]2018-12-01 00:00:00 Test Item Value Reference Range Interpretation Comments HEMOGLOBIN A1c (test code = 53137) 6.7 % HEMOGLOBIN A1c [ADDED]2018-12-01 00:00:00 Test Item Value Reference Range Interpretation Comments HEMOGLOBIN A1c (test code = 41300) 6.7 % HEMOGLOBIN A1c [ADDED]2018-12-01 00:00:00 Test Item Value Reference Range Interpretation Comments HEMOGLOBIN A1c (test code = 16913) 6.7 % COMPREHENSIVE METABOLIC PANEL [ADDED]2018-12-01 00:00:00 Test Item Value Reference Range Interpretation Comments GLUCOSE (test code = 2217) 136 MG/DL BUN (test code = 2208) 15 MG/DL CREATININE (test code = 2214) 0.64 MG/DL eGFR AMER. (test code 115 ML/MIN/1.73 = 38652) eGFR NON- AMER. (test 99 ML/MIN/1.73 code = 06312) CALC BUN/CREAT (test code = 23 RATIO [...] eGFR AMER. (test code 115 ML/MIN/1.73 = 26246) eGFR NON- AMER. (test 99 ML/MIN/1.73 code = 50342) CALC BUN/CREAT (test code = 23 RATIO [...] Interpretation Comments HEMOGLOBIN A1c (test code = 62480) 6.7 % HEMOGLOBIN A1c [ADDED]2018-12-01 00:00:00 Test Item Value Reference Range Interpretation Comments HEMOGLOBIN A1c (test code = 04340) 6.7 % HEMOGLOBIN A1c [ADDED]2018-12-01 00:00:00 Test Item Value Reference Range Interpretation Comments HEMOGLOBIN A1c (test code = 73003) 6.7 % COMPREHENSIVE METABOLIC PANEL [ADDED]2018-12-01 00:00:00 Test Item Value Reference Range Interpretation Comments GLUCOSE (test code = 2217) 136 MG/DL BUN (test code = 2208) 15 MG/DL CREATININE (test code = 2214) 0.64 MG/DL eGFR AMER. (test code 115 ML/MIN/1.73 = 82739) eGFR NON- AMER. (test 99 ML/MIN/1.73 code = 10130) CALC BUN/CREAT (test code = 23 RATIO [...] eGFR AMER. (test code 115 ML/MIN/1.73 = 37129) eGFR NON- AMER. (test 99 ML/MIN/1.73 code = 72277) CALC BUN/CREAT (test code = 23 RATIO [...] Interpretation Comments HEMOGLOBIN A1c (test code = 87899) 6.7 % HEMOGLOBIN A1c [ADDED]2018-12-01 00:00:00 Test Item Value Reference Range Interpretation Comments HEMOGLOBIN A1c (test code = 31463) 6.7 % COMPREHENSIVE METABOLIC PANEL [ADDED]2018-12-01 00:00:00 Test Item Value Reference Range Interpretation Comments GLUCOSE (test code = 2217) 136 MG/DL BUN (test code = 2208) 15 MG/DL CREATININE (test code = 2214) 0.64 MG/DL eGFR AMER. (test code 115 ML/MIN/1.73 = 11643) eGFR NON- AMER. (test 99 ML/MIN/1.73 code = 60115) CALC BUN/CREAT (test code = 23 RATIO [...] Interpretation Comments HEMOGLOBIN A1c (test code = 82982) 6.7 % HEMOGLOBIN A1c [ADDED]2018-12-01 00:00:00 Test Item Value Reference Range Interpretation Comments HEMOGLOBIN A1c (test code = 90969) 6.7 % HEMOGLOBIN A1c [ADDED]2018-12-01 00:00:00 Test Item Value Reference Range Interpretation Comments HEMOGLOBIN A1c (test code = 02134) 6.7 % COMPREHENSIVE METABOLIC PANEL [ADDED]2018-12-01 00:00:00 Test Item Value Reference Range Interpretation Comments GLUCOSE (test code = 2217) 136 MG/DL BUN (test code = 2208) 15 MG/DL CREATININE (test code = 2214) 0.64 MG/DL eGFR AMER. (test code 115 ML/MIN/1.73 = 13571) eGFR NON- AMER. (test 99 ML/MIN/1.73 code = 73421) CALC BUN/CREAT (test code = 23 RATIO [...] eGFR AMER. (test code 115 ML/MIN/1.73 = 98289) eGFR NON- AMER. (test 99 ML/MIN/1.73 code = 03317) CALC BUN/CREAT (test code = 23 RATIO [...] code 1.280 UIU/ML = 2821) CBC W/AUTO [id number] 00:00:00 Test Item Value Reference Range Interpretation [...] code = 1015) 346 K/UL CBC W/AUTO [id number] 00:00:00 Test Item Value Reference Range Interpretation [...] code = 1015) 346 K/UL CBC W/AUTO [id number] 00:00:00 Test Item Value Reference Range Interpretation [...] (test code = 1015) 346 K/UL HEMOGLOBIN [id number] 00:00:00 Test Item Value Reference Range Interpretation Comments HEMOGLOBIN A1c (test code = 33139) 5.9 % HEMOGLOBIN [id number] 00:00:00 Test Item Value Reference Range Interpretation Comments HEMOGLOBIN A1c (test code = 03610) 5.9 % HEMOGLOBIN [id number] 00:00:00 Test Item Value Reference Range Interpretation Comments HEMOGLOBIN A1c (test code = 28282) 5.9 % LIPID [id number] 00:00:00 Test Item Value Reference Range Interpretation Comments CHOLESTEROL (test code = 2210) 318 MG/DL TRIGLYCERIDES (test code = 2232) 263 MG/DL HDL CHOLESTEROL (test code = 2220) 51 MG/DL CALC LDL CHOL (test code = 2237) 214 MG/DL RISK RATIO LDL/HDL (test code = 4.20 RATIO 2238) LIPID [id number] 00:00:00 Test Item Value Reference Range Interpretation Comments CHOLESTEROL (test code = 2210) 318 MG/DL TRIGLYCERIDES (test code = 2232) 263 MG/DL HDL CHOLESTEROL (test code = 2220) 51 MG/DL CALC LDL CHOL (test code = 2237) 214 MG/DL RISK RATIO LDL/HDL (test code = 4.20 RATIO 2238) COMPREHENSIVE METABOLIC [id number] 00:00:00 Test Item Value Reference Range Interpretation Comments GLUCOSE (test code = 2217) 113 MG/DL BUN (test code = 2208) 18 MG/DL CREATININE (test code = 2214) 0.70 MG/DL eGFR AMER. (test code 111 ML/MIN/1.73 = 05699) eGFR NON- AMER. (test 96 ML/MIN/1.73 code = 35043) CALC BUN/CREAT (test code = 26 RATIO [...] code = 2219) 31 U/L COMPREHENSIVE METABOLIC [id number] 00:00:00 Test Item Value Reference Range Interpretation Comments GLUCOSE (test code = 2217) 113 MG/DL BUN (test code = 2208) 18 MG/DL CREATININE (test code = 2214) 0.70 MG/DL eGFR AMER. (test code 111 ML/MIN/1.73 = 32522) eGFR NON- AMER. (test 96 ML/MIN/1.73 code = 64725) CALC BUN/CREAT (test code = 26 RATIO [...] ALT (test code = 2219) 31 U/L [id number] 00:00:00 Test Item Value Reference Range Interpretation Comments TSH, THIRD GENERATION (test code 2.520 UIU/ML = 2821) [id number] 00:00:00 Test Item Value Reference Range Interpretation Comments TSH, THIRD GENERATION (test code 2.520 UIU/ML = 2821) [id number] 00:00:00 Test Item Value Reference Range Interpretation Comments TSH, THIRD GENERATION (test code 2.520 UIU/ML = 2821) CBC W/AUTO [id number] 00:00:00 Test Item Value Reference Range Interpretation [...] code = 1015) 346 K/UL CBC W/AUTO [id number] 00:00:00 Test Item Value Reference Range Interpretation [...] code = 1015) 346 K/UL CBC W/AUTO [id number] 00:00:00 Test Item Value Reference Range Interpretation [...] (test code = 1015) 346 K/UL HEMOGLOBIN [id number] 00:00:00 Test Item Value Reference Range Interpretation Comments HEMOGLOBIN A1c (test code = 16194) 5.9 % HEMOGLOBIN [id number] 00:00:00 Test Item Value Reference Range Interpretation Comments HEMOGLOBIN A1c (test code = 18025) 5.9 % HEMOGLOBIN [id number] 00:00:00 Test Item Value Reference Range Interpretation Comments HEMOGLOBIN A1c (test code = 47905) 5.9 % LIPID [id number] 00:00:00 Test Item Value Reference Range Interpretation Comments CHOLESTEROL (test code = 2210) 318 MG/DL TRIGLYCERIDES (test code = 2232) 263 MG/DL HDL CHOLESTEROL (test code = 2220) 51 MG/DL CALC LDL CHOL (test code = 2237) 214 MG/DL RISK RATIO LDL/HDL (test code = 4.20 RATIO 2238) LIPID [id number] 00:00:00 Test Item Value Reference Range Interpretation Comments CHOLESTEROL (test code = 2210) 318 MG/DL TRIGLYCERIDES (test code = 2232) 263 MG/DL HDL CHOLESTEROL (test code = 2220) 51 MG/DL CALC LDL CHOL (test code = 2237) 214 MG/DL RISK RATIO LDL/HDL (test code = 4.20 RATIO 2238) COMPREHENSIVE METABOLIC [id number] 00:00:00 Test Item Value Reference Range Interpretation Comments GLUCOSE (test code = 2217) 113 MG/DL BUN (test code = 2208) 18 MG/DL CREATININE (test code = 2214) 0.70 MG/DL eGFR AMER. (test code 111 ML/MIN/1.73 = 32765) eGFR NON- AMER. (test 96 ML/MIN/1.73 code = 94815) CALC BUN/CREAT (test code = 26 RATIO [...] code = 2219) 31 U/L COMPREHENSIVE METABOLIC [id number] 00:00:00 Test Item Value Reference Range Interpretation Comments GLUCOSE (test code = 2217) 113 MG/DL BUN (test code = 2208) 18 MG/DL CREATININE (test code = 2214) 0.70 MG/DL eGFR AMER. (test code 111 ML/MIN/1.73 = 34712) eGFR NON- AMER. (test 96 ML/MIN/1.73 code = 22637) CALC BUN/CREAT (test code = 26 RATIO [...] ALT (test code = 2219) 31 U/L [id number] 00:00:00 Test Item Value Reference Range Interpretation Comments TSH, THIRD GENERATION (test code 2.520 UIU/ML = 2821) [id number] 00:00:00 Test Item Value Reference Range Interpretation Comments TSH, THIRD GENERATION (test code 2.520 UIU/ML = 2821) [id number] 00:00:00 Test Item Value Reference Range Interpretation Comments TSH, THIRD GENERATION (test code 2.520 UIU/ML = 2821) CBC W/AUTO [id number] 00:00:00 Test Item Value Reference Range Interpretation [...] code = 1015) 346 K/UL CBC W/AUTO [id number] 00:00:00 Test Item Value Reference Range Interpretation [...] (test code = 1015) 346 K/UL HEMOGLOBIN [id number] 00:00:00 Test Item Value Reference Range Interpretation Comments HEMOGLOBIN A1c (test code = 66124) 5.9 % HEMOGLOBIN [id number] 00:00:00 Test Item Value Reference Range Interpretation Comments HEMOGLOBIN A1c (test code = 39277) 5.9 % LIPID [id number] 00:00:00 Test Item Value Reference Range Interpretation Comments CHOLESTEROL (test code = 2210) 318 MG/DL TRIGLYCERIDES (test code = 2232) 263 MG/DL HDL CHOLESTEROL (test code = 2220) 51 MG/DL CALC LDL CHOL (test code = 2237) 214 MG/DL RISK RATIO LDL/HDL (test code = 4.20 RATIO 2238) COMPREHENSIVE METABOLIC [id number] 00:00:00 Test Item Value Reference Range Interpretation Comments GLUCOSE (test code = 2217) 113 MG/DL BUN (test code = 2208) 18 MG/DL CREATININE (test code = 2214) 0.70 MG/DL eGFR AMER. (test code 111 ML/MIN/1.73 = 56185) eGFR NON- AMER. (test 96 ML/MIN/1.73 code = 05858) CALC BUN/CREAT (test code = 26 RATIO [...] ALT (test code = 2219) 31 U/L [id number] 00:00:00 Test Item Value Reference Range Interpretation Comments TSH, THIRD GENERATION (test code 2.520 UIU/ML = 2821) [id number] 00:00:00 Test Item Value Reference Range Interpretation Comments TSH, THIRD GENERATION (test code 2.520 UIU/ML = 2821) CBC W/AUTO [id number] 00:00:00 Test Item Value Reference Range Interpretation [...] code = 1015) 346 K/UL CBC W/AUTO [id number] 00:00:00 Test Item Value Reference Range Interpretation [...] code = 1015) 346 K/UL CBC W/AUTO [id number] 00:00:00 Test Item Value Reference Range Interpretation [...] (test code = 1015) 346 K/UL HEMOGLOBIN [id number] 00:00:00 Test Item Value Reference Range Interpretation Comments HEMOGLOBIN A1c (test code = 75474) 5.9 % HEMOGLOBIN [id number] 00:00:00 Test Item Value Reference Range Interpretation Comments HEMOGLOBIN A1c (test code = 40381) 5.9 % HEMOGLOBIN [id number] 00:00:00 Test Item Value Reference Range Interpretation Comments HEMOGLOBIN A1c (test code = 73808) 5.9 % LIPID [id number] 00:00:00 Test Item Value Reference Range Interpretation Comments CHOLESTEROL (test code = 2210) 318 MG/DL TRIGLYCERIDES (test code = 2232) 263 MG/DL HDL CHOLESTEROL (test code = 2220) 51 MG/DL CALC LDL CHOL (test code = 2237) 214 MG/DL RISK RATIO LDL/HDL (test code = 4.20 RATIO 2238) LIPID [id number] 00:00:00 Test Item Value Reference Range Interpretation Comments CHOLESTEROL (test code = 2210) 318 MG/DL TRIGLYCERIDES (test code = 2232) 263 MG/DL HDL CHOLESTEROL (test code = 2220) 51 MG/DL CALC LDL CHOL (test code = 2237) 214 MG/DL RISK RATIO LDL/HDL (test code = 4.20 RATIO 2238) COMPREHENSIVE METABOLIC [id number] 00:00:00 Test Item Value Reference Range Interpretation Comments GLUCOSE (test code = 2217) 113 MG/DL BUN (test code = 2208) 18 MG/DL CREATININE (test code = 2214) 0.70 MG/DL eGFR AMER. (test code 111 ML/MIN/1.73 = 53537) eGFR NON- AMER. (test 96 ML/MIN/1.73 code = 83412) CALC BUN/CREAT (test code = 26 RATIO [...] code = 2219) 31 U/L COMPREHENSIVE METABOLIC [id number] 00:00:00 Test Item Value Reference Range Interpretation Comments GLUCOSE (test code = 2217) 113 MG/DL BUN (test code = 2208) 18 MG/DL CREATININE (test code = 2214) 0.70 MG/DL eGFR AMER. (test code 111 ML/MIN/1.73 = 62181) eGFR NON- AMER. (test 96 ML/MIN/1.73 code = 72963) CALC BUN/CREAT (test code = 26 RATIO [...] ALT (test code = 2219) 31 U/L [id number] 00:00:00 Test Item Value Reference Range Interpretation Comments TSH, THIRD GENERATION (test code 2.520 UIU/ML = 2821) [id number] 00:00:00 Test Item Value Reference Range Interpretation Comments TSH, THIRD GENERATION (test code 2.520 UIU/ML = 2821) [id number] 00:00:00 Test Item Value Reference Range Interpretation Comments TSH, THIRD GENERATION (test code 2.520 UIU/ML = 2821) CULTURE, [id number] 00:00:00 Test Item Value Reference Range Interpretation Comments CULTURE, URINE (test SPECIMEN NUMBER: code = 02778) [id number] CULTURE, [id number] 00:00:00 Test Item Value Reference Range Interpretation Comments CULTURE, URINE (test SPECIMEN NUMBER: code = 16384) [id number] CULTURE, [id number] 00:00:00 Test Item Value Reference Range Interpretation Comments CULTURE, URINE (test SPECIMEN NUMBER: code = 23201) [id number] CULTURE, [id number] 00:00:00 Test Item Value Reference Range Interpretation Comments CULTURE, URINE (test SPECIMEN NUMBER: code = 47596) [id number] CULTURE, [id number] 00:00:00 Test Item Value Reference Range Interpretation Comments CULTURE, URINE (test SPECIMEN NUMBER: code = 12933) [id number] CULTURE, [id number] 00:00:00 Test Item Value Reference Range Interpretation Comments CULTURE, URINE (test SPECIMEN NUMBER: code = 00760) [id number] CULTURE, [id number] 00:00:00 Test Item Value Reference Range Interpretation Comments CULTURE, URINE (test SPECIMEN NUMBER: code = 09203) [id number] CULTURE, [id number] 00:00:00 Test Item Value Reference Range Interpretation Comments CULTURE, URINE (test SPECIMEN NUMBER: code = 06904) [id number] CULTURE, [id number] 00:00:00 Test Item Value Reference Range Interpretation Comments CULTURE, URINE (test SPECIMEN NUMBER: code = 67366) [id number] CULTURE, [id number] 00:00:00 Test Item Value Reference Range Interpretation Comments CULTURE, URINE (test SPECIMEN NUMBER: code = 53680) [id number] CULTURE, [id number] 00:00:00 Test Item Value Reference Range Interpretation Comments CULTURE, URINE (test SPECIMEN NUMBER: code = 53735) [id number] CULTURE, [id number] 00:00:00 Test Item Value Reference Range Interpretation Comments CULTURE, URINE (test SPECIMEN NUMBER: code = 60288) [id number] CULTURE, [id number] 00:00:00 Test Item Value Reference Range Interpretation Comments CULTURE, URINE (test SPECIMEN NUMBER: code = 24109) [id number] CULTURE, [id number] 00:00:00 Test Item Value Reference Range Interpretation Comments CULTURE, URINE (test SPECIMEN NUMBER: code = 82275) [id number] BASIC METABOLIC [id number] 00:00:00 Test Item Value Reference Range Interpretation Comments GLUCOSE (test code = 2217) 135 MG/DL BUN (test code = 2208) 25 MG/DL CREATININE (test code = 2214) 0.76 MG/DL eGFR AMER. (test code 101 ML/MIN/1.73 = 87244) eGFR NON- AMER. (test 87 ML/MIN/1.73 code = 30610) SODIUM (test code = 2231) 139 MEQ/L POTASSIUM (test code = 2228) 4.7 MEQ/L CHLORIDE (test code = 2215) 99 MEQ/L CARBON DIOXIDE (test code = 26 MEQ/L 2206) CALCIUM (test code = 2209) 9.4 MG/DL BASIC METABOLIC [id number] 00:00:00 Test Item Value Reference Range Interpretation Comments GLUCOSE (test code = 2217) 135 MG/DL BUN (test code = 2208) 25 MG/DL CREATININE (test code = 2214) 0.76 MG/DL eGFR AMER. (test code 101 ML/MIN/1.73 = 66716) eGFR NON- AMER. (test 87 ML/MIN/1.73 code = 19906) SODIUM (test code = 2231) 139 MEQ/L POTASSIUM (test code = 2228) 4.7 MEQ/L CHLORIDE (test code = 2215) 99 MEQ/L CARBON DIOXIDE (test code = 26 MEQ/L 2206) CALCIUM (test code = 2209) 9.4 MG/DL LIPID [id number] 00:00:00 Test Item Value Reference Range Interpretation Comments CHOLESTEROL (test code = 2210) 262 MG/DL TRIGLYCERIDES (test code = 2232) 300 MG/DL HDL CHOLESTEROL (test code = 2220) 36 MG/DL CALC LDL CHOL (test code = 2237) 166 MG/DL RISK RATIO LDL/HDL (test code = 4.61 RATIO 2238) LIPID [id number] 00:00:00 Test Item Value Reference Range Interpretation Comments CHOLESTEROL (test code = 2210) 262 MG/DL TRIGLYCERIDES (test code = 2232) 300 MG/DL HDL CHOLESTEROL (test code = 2220) 36 MG/DL CALC LDL CHOL (test code = 2237) 166 MG/DL RISK RATIO LDL/HDL (test code = 4.61 RATIO 2238) HEMOGLOBIN [id number] 00:00:00 Test Item Value Reference Range Interpretation Comments HEMOGLOBIN A1c (test code = 01631) 6.2 % HEMOGLOBIN [id number] 00:00:00 Test Item Value Reference Range Interpretation Comments HEMOGLOBIN A1c (test code = 59581) 6.2 % HEMOGLOBIN [id number] 00:00:00 Test Item Value Reference Range Interpretation Comments HEMOGLOBIN A1c (test code = 18219) 6.2 % [id number] 00:00:00 Test Item Value Reference Range Interpretation Comments TSH, THIRD GENERATION (test code 0.988 UIU/ML = 2821) [id number] 00:00:00 Test Item Value Reference Range Interpretation Comments TSH, THIRD GENERATION (test code 0.988 UIU/ML = 2821) [id number] 00:00:00 Test Item Value Reference Range Interpretation Comments TSH, THIRD GENERATION (test code 0.988 UIU/ML = 2821) BASIC METABOLIC [id number] 00:00:00 Test Item Value Reference Range Interpretation Comments GLUCOSE (test code = 2217) 135 MG/DL BUN (test code = 2208) 25 MG/DL CREATININE (test code = 2214) 0.76 MG/DL eGFR AMER. (test code 101 ML/MIN/1.73 = 51309) eGFR NON- AMER. (test 87 ML/MIN/1.73 code = 83642) SODIUM (test code = 2231) 139 MEQ/L POTASSIUM (test code = 2228) 4.7 MEQ/L CHLORIDE (test code = 2215) 99 MEQ/L CARBON DIOXIDE (test code = 26 MEQ/L 2206) CALCIUM (test code = 2209) 9.4 MG/DL BASIC METABOLIC [id number] 00:00:00 Test Item Value Reference Range Interpretation Comments GLUCOSE (test code = 2217) 135 MG/DL BUN (test code = 2208) 25 MG/DL CREATININE (test code = 2214) 0.76 MG/DL eGFR AMER. (test code 101 ML/MIN/1.73 = 07453) eGFR NON- AMER. (test 87 ML/MIN/1.73 code = 73182) SODIUM (test code = 2231) 139 MEQ/L POTASSIUM (test code = 2228) 4.7 MEQ/L CHLORIDE (test code = 2215) 99 MEQ/L CARBON DIOXIDE (test code = 26 MEQ/L 2206) CALCIUM (test code = 2209) 9.4 MG/DL LIPID [id number] 00:00:00 Test Item Value Reference Range Interpretation Comments CHOLESTEROL (test code = 2210) 262 MG/DL TRIGLYCERIDES (test code = 2232) 300 MG/DL HDL CHOLESTEROL (test code = 2220) 36 MG/DL CALC LDL CHOL (test code = 2237) 166 MG/DL RISK RATIO LDL/HDL (test code = 4.61 RATIO 2238) LIPID [id number] 00:00:00 Test Item Value Reference Range Interpretation Comments CHOLESTEROL (test code = 2210) 262 MG/DL TRIGLYCERIDES (test code = 2232) 300 MG/DL HDL CHOLESTEROL (test code = 2220) 36 MG/DL CALC LDL CHOL (test code = 2237) 166 MG/DL RISK RATIO LDL/HDL (test code = 4.61 RATIO 2238) HEMOGLOBIN [id number] 00:00:00 Test Item Value Reference Range Interpretation Comments HEMOGLOBIN A1c (test code = 81204) 6.2 % HEMOGLOBIN [id number] 00:00:00 Test Item Value Reference Range Interpretation Comments HEMOGLOBIN A1c (test code = 81682) 6.2 % HEMOGLOBIN [id number] 00:00:00 Test Item Value Reference Range Interpretation Comments HEMOGLOBIN A1c (test code = 24547) 6.2 % [id number] 00:00:00 Test Item Value Reference Range Interpretation Comments TSH, THIRD GENERATION (test code 0.988 UIU/ML = 2821) [id number] 00:00:00 Test Item Value Reference Range Interpretation Comments TSH, THIRD GENERATION (test code 0.988 UIU/ML = 2821) [id number] 00:00:00 Test Item Value Reference Range Interpretation Comments TSH, THIRD GENERATION (test code 0.988 UIU/ML = 2821) BASIC METABOLIC [id number] 00:00:00 Test Item Value Reference Range Interpretation Comments GLUCOSE (test code = 2217) 135 MG/DL BUN (test code = 2208) 25 MG/DL CREATININE (test code = 2214) 0.76 MG/DL eGFR AMER. (test code 101 ML/MIN/1.73 = 66573) eGFR NON- AMER. (test 87 ML/MIN/1.73 code = 82227) SODIUM (test code = 2231) 139 MEQ/L POTASSIUM (test code = 2228) 4.7 MEQ/L CHLORIDE (test code = 2215) 99 MEQ/L CARBON DIOXIDE (test code = 26 MEQ/L 2206) CALCIUM (test code = 2209) 9.4 MG/DL LIPID [id number] 00:00:00 Test Item Value Reference Range Interpretation Comments CHOLESTEROL (test code = 2210) 262 MG/DL TRIGLYCERIDES (test code = 2232) 300 MG/DL HDL CHOLESTEROL (test code = 2220) 36 MG/DL CALC LDL CHOL (test code = 2237) 166 MG/DL RISK RATIO LDL/HDL (test code = 4.61 RATIO 2238) HEMOGLOBIN [id number] 00:00:00 Test Item Value Reference Range Interpretation Comments HEMOGLOBIN A1c (test code = 92511) 6.2 % HEMOGLOBIN [id number] 00:00:00 Test Item Value Reference Range Interpretation Comments HEMOGLOBIN A1c (test code = 28550) 6.2 % [id number] 00:00:00 Test Item Value Reference Range Interpretation Comments TSH, THIRD GENERATION (test code 0.988 UIU/ML = 2821) [id number] 00:00:00 Test Item Value Reference Range Interpretation Comments TSH, THIRD GENERATION (test code 0.988 UIU/ML = 2821) BASIC METABOLIC [id number] 00:00:00 Test Item Value Reference Range Interpretation Comments GLUCOSE (test code = 2217) 135 MG/DL BUN (test code = 2208) 25 MG/DL CREATININE (test code = 2214) 0.76 MG/DL eGFR AMER. (test code 101 ML/MIN/1.73 = 21702) eGFR NON- AMER. (test 87 ML/MIN/1.73 code = 34011) SODIUM (test code = 2231) 139 MEQ/L POTASSIUM (test code = 2228) 4.7 MEQ/L CHLORIDE (test code = 2215) 99 MEQ/L CARBON DIOXIDE (test code = 26 MEQ/L 2206) CALCIUM (test code = 2209) 9.4 MG/DL BASIC METABOLIC [id number] 00:00:00 Test Item Value Reference Range Interpretation Comments GLUCOSE (test code = 2217) 135 MG/DL BUN (test code = 2208) 25 MG/DL CREATININE (test code = 2214) 0.76 MG/DL eGFR AMER. (test code 101 ML/MIN/1.73 = 48246) eGFR NON- AMER. (test 87 ML/MIN/1.73 code = 46808) SODIUM (test code = 2231) 139 MEQ/L POTASSIUM (test code = 2228) 4.7 MEQ/L CHLORIDE (test code = 2215) 99 MEQ/L CARBON DIOXIDE (test code = 26 MEQ/L 2206) CALCIUM (test code = 2209) 9.4 MG/DL LIPID [id number] 00:00:00 Test Item Value Reference Range Interpretation Comments CHOLESTEROL (test code = 2210) 262 MG/DL TRIGLYCERIDES (test code = 2232) 300 MG/DL HDL CHOLESTEROL (test code = 2220) 36 MG/DL CALC LDL CHOL (test code = 2237) 166 MG/DL RISK RATIO LDL/HDL (test code = 4.61 RATIO 2238) LIPID [id number] 00:00:00 Test Item Value Reference Range Interpretation Comments CHOLESTEROL (test code = 2210) 262 MG/DL TRIGLYCERIDES (test code = 2232) 300 MG/DL HDL CHOLESTEROL (test code = 2220) 36 MG/DL CALC LDL CHOL (test code = 2237) 166 MG/DL RISK RATIO LDL/HDL (test code = 4.61 RATIO 2238) HEMOGLOBIN [id number] 00:00:00 Test Item Value Reference Range Interpretation Comments HEMOGLOBIN A1c (test code = 04178) 6.2 % HEMOGLOBIN [id number] 00:00:00 Test Item Value Reference Range Interpretation Comments HEMOGLOBIN A1c (test code = 92676) 6.2 % HEMOGLOBIN [id number] 00:00:00 Test Item Value Reference Range Interpretation Comments HEMOGLOBIN A1c (test code = 20044) 6.2 % [id number] 00:00:00 Test Item Value Reference Range Interpretation Comments TSH, THIRD GENERATION (test code 0.988 UIU/ML = 2821) [id number] 00:00:00 Test Item Value Reference Range Interpretation Comments TSH, THIRD GENERATION (test code 0.988 UIU/ML = 2821) [id number] 00:00:00 Test Item Value Reference Range Interpretation Comments TSH, THIRD GENERATION (test code 0.988 UIU/ML = 2821) COMPREHENSIVE METABOLIC [id number] 00:00:00 Test Item Value Reference Range Interpretation Comments GLUCOSE (test code = 2217) 109 MG/DL BUN (test code = 2208) 25 MG/DL CREATININE (test code = 2214) 0.78 MG/DL eGFR AMER. (test code 98 ML/MIN/1.73 = 27113) eGFR NON- AMER. (test 84 ML/MIN/1.73 code = 27961) CALC BUN/CREAT (test code = 32 RATIO [...] code = 2219) 25 U/L COMPREHENSIVE METABOLIC [id number] 00:00:00 Test Item Value Reference Range Interpretation Comments GLUCOSE (test code = 2217) 109 MG/DL BUN (test code = 2208) 25 MG/DL CREATININE (test code = 2214) 0.78 MG/DL eGFR AMER. (test code 98 ML/MIN/1.73 = 07643) eGFR NON- AMER. (test 84 ML/MIN/1.73 code = 76294) CALC BUN/CREAT (test code = 32 RATIO [...] (test code = 2219) 25 U/L LIPID [id number] 00:00:00 Test Item Value Reference Range Interpretation Comments CHOLESTEROL (test code = 2210) 295 MG/DL TRIGLYCERIDES (test code = 2232) 218 MG/DL HDL CHOLESTEROL (test code = 2220) 46 MG/DL CALC LDL CHOL (test code = 2237) 205 MG/DL RISK RATIO LDL/HDL (test code = 4.47 RATIO 2238) LIPID [id number] 00:00:00 Test Item Value Reference Range Interpretation Comments CHOLESTEROL (test code = 2210) 295 MG/DL TRIGLYCERIDES (test code = 2232) 218 MG/DL HDL CHOLESTEROL (test code = 2220) 46 MG/DL CALC LDL CHOL (test code = 2237) 205 MG/DL RISK RATIO LDL/HDL (test code = 4.47 RATIO 2238) HEMOGLOBIN [id number] 00:00:00 Test Item Value Reference Range Interpretation Comments HEMOGLOBIN A1c (test code = 81996) 7.0 % HEMOGLOBIN [id number] 00:00:00 Test Item Value Reference Range Interpretation Comments HEMOGLOBIN A1c (test code = 83305) 7.0 % HEMOGLOBIN [id number] 00:00:00 Test Item Value Reference Range Interpretation Comments HEMOGLOBIN A1c (test code = 27545) 7.0 % [id number] 00:00:00 Test Item Value Reference Range Interpretation Comments TSH, THIRD GENERATION (test code 0.565 UIU/ML = 2821) [id number] 00:00:00 Test Item Value Reference Range Interpretation Comments TSH, THIRD GENERATION (test code 0.565 UIU/ML = 2821) [id number] 00:00:00 Test Item Value Reference Range Interpretation Comments TSH, THIRD GENERATION (test code 0.565 UIU/ML = 2821) COMPREHENSIVE METABOLIC [id number] 00:00:00 Test Item Value Reference Range Interpretation Comments GLUCOSE (test code = 2217) 109 MG/DL BUN (test code = 2208) 25 MG/DL CREATININE (test code = 2214) 0.78 MG/DL eGFR AMER. (test code 98 ML/MIN/1.73 = 49569) eGFR NON- AMER. (test 84 ML/MIN/1.73 code = 90989) CALC BUN/CREAT (test code = 32 RATIO [...] code = 2219) 25 U/L COMPREHENSIVE METABOLIC [id number] 00:00:00 Test Item Value Reference Range Interpretation Comments GLUCOSE (test code = 2217) 109 MG/DL BUN (test code = 2208) 25 MG/DL CREATININE (test code = 2214) 0.78 MG/DL eGFR AMER. (test code 98 ML/MIN/1.73 = 30458) eGFR NON- AMER. (test 84 ML/MIN/1.73 code = 30187) CALC BUN/CREAT (test code = 32 RATIO [...] (test code = 2219) 25 U/L LIPID [id number] 00:00:00 Test Item Value Reference Range Interpretation Comments CHOLESTEROL (test code = 2210) 295 MG/DL TRIGLYCERIDES (test code = 2232) 218 MG/DL HDL CHOLESTEROL (test code = 2220) 46 MG/DL CALC LDL CHOL (test code = 2237) 205 MG/DL RISK RATIO LDL/HDL (test code = 4.47 RATIO 2238) LIPID [id number] 00:00:00 Test Item Value Reference Range Interpretation Comments CHOLESTEROL (test code = 2210) 295 MG/DL TRIGLYCERIDES (test code = 2232) 218 MG/DL HDL CHOLESTEROL (test code = 2220) 46 MG/DL CALC LDL CHOL (test code = 2237) 205 MG/DL RISK RATIO LDL/HDL (test code = 4.47 RATIO 2238) HEMOGLOBIN [id number] 00:00:00 Test Item Value Reference Range Interpretation Comments HEMOGLOBIN A1c (test code = 81305) 7.0 % HEMOGLOBIN [id number] 00:00:00 Test Item Value Reference Range Interpretation Comments HEMOGLOBIN A1c (test code = 81254) 7.0 % HEMOGLOBIN [id number] 00:00:00 Test Item Value Reference Range Interpretation Comments HEMOGLOBIN A1c (test code = 40707) 7.0 % [id number] 00:00:00 Test Item Value Reference Range Interpretation Comments TSH, THIRD GENERATION (test code 0.565 UIU/ML = 2821) [id number] 00:00:00 Test Item Value Reference Range Interpretation Comments TSH, THIRD GENERATION (test code 0.565 UIU/ML = 2821) [id number] 00:00:00 Test Item Value Reference Range Interpretation Comments TSH, THIRD GENERATION (test code 0.565 UIU/ML = 2821) COMPREHENSIVE METABOLIC [id number] 00:00:00 Test Item Value Reference Range Interpretation Comments GLUCOSE (test code = 2217) 109 MG/DL BUN (test code = 2208) 25 MG/DL CREATININE (test code = 2214) 0.78 MG/DL eGFR AMER. (test code 98 ML/MIN/1.73 = 64049) eGFR NON- AMER. (test 84 ML/MIN/1.73 code = 70064) CALC BUN/CREAT (test code = 32 RATIO [...] (test code = 2219) 25 U/L LIPID [id number] 00:00:00 Test Item Value Reference Range Interpretation Comments CHOLESTEROL (test code = 2210) 295 MG/DL TRIGLYCERIDES (test code = 2232) 218 MG/DL HDL CHOLESTEROL (test code = 2220) 46 MG/DL CALC LDL CHOL (test code = 2237) 205 MG/DL RISK RATIO LDL/HDL (test code = 4.47 RATIO 2238) HEMOGLOBIN [id number] 00:00:00 Test Item Value Reference Range Interpretation Comments HEMOGLOBIN A1c (test code = 66776) 7.0 % HEMOGLOBIN [id number] 00:00:00 Test Item Value Reference Range Interpretation Comments HEMOGLOBIN A1c (test code = 37909) 7.0 % [id number] 00:00:00 Test Item Value Reference Range Interpretation Comments TSH, THIRD GENERATION (test code 0.565 UIU/ML = 2821) [id number] 00:00:00 Test Item Value Reference Range Interpretation Comments TSH, THIRD GENERATION (test code 0.565 UIU/ML = 2821) COMPREHENSIVE METABOLIC [id number] 00:00:00 Test Item Value Reference Range Interpretation Comments GLUCOSE (test code = 2217) 109 MG/DL BUN (test code = 2208) 25 MG/DL CREATININE (test code = 2214) 0.78 MG/DL eGFR AMER. (test code 98 ML/MIN/1.73 = 13699) eGFR NON- AMER. (test 84 ML/MIN/1.73 code = 97631) CALC BUN/CREAT (test code = 32 RATIO [...] code = 2219) 25 U/L COMPREHENSIVE METABOLIC [id number] 00:00:00 Test Item Value Reference Range Interpretation Comments GLUCOSE (test code = 2217) 109 MG/DL BUN (test code = 2208) 25 MG/DL CREATININE (test code = 2214) 0.78 MG/DL eGFR AMER. (test code 98 ML/MIN/1.73 = 05878) eGFR NON- AMER. (test 84 ML/MIN/1.73 code = 65161) CALC BUN/CREAT (test code = 32 RATIO [...] (test code = 2219) 25 U/L LIPID [id number] 00:00:00 Test Item Value Reference Range Interpretation Comments CHOLESTEROL (test code = 2210) 295 MG/DL TRIGLYCERIDES (test code = 2232) 218 MG/DL HDL CHOLESTEROL (test code = 2220) 46 MG/DL CALC LDL CHOL (test code = 2237) 205 MG/DL RISK RATIO LDL/HDL (test code = 4.47 RATIO 2238) LIPID [id number] 00:00:00 Test Item Value Reference Range Interpretation Comments CHOLESTEROL (test code = 2210) 295 MG/DL TRIGLYCERIDES (test code = 2232) 218 MG/DL HDL CHOLESTEROL (test code = 2220) 46 MG/DL CALC LDL CHOL (test code = 2237) 205 MG/DL RISK RATIO LDL/HDL (test code = 4.47 RATIO 2238) HEMOGLOBIN [id number] 00:00:00 Test Item Value Reference Range Interpretation Comments HEMOGLOBIN A1c (test code = 97202) 7.0 % HEMOGLOBIN [id number] 00:00:00 Test Item Value Reference Range Interpretation Comments HEMOGLOBIN A1c (test code = 32256) 7.0 % HEMOGLOBIN [id number] 00:00:00 Test Item Value Reference Range Interpretation Comments HEMOGLOBIN A1c (test code = 84415) 7.0 % [id number] 00:00:00 Test Item Value Reference Range Interpretation Comments TSH, THIRD GENERATION (test code 0.565 UIU/ML = 2821) [id number] 00:00:00 Test Item Value Reference Range Interpretation Comments TSH, THIRD GENERATION (test code 0.565 UIU/ML = 2821) [id number] 00:00:00 Test Item Value Reference Range Interpretation Comments TSH, THIRD GENERATION (test code 0.565 UIU/ML = 2821) [id number] 00:00:00 Test Item Value Reference Range Interpretation Comments TSH, THIRD GENERATION (test code 0.379 UIU/ML = 2821) [id number] 00:00:00 Test Item Value Reference Range Interpretation Comments TSH, THIRD GENERATION (test code 0.379 UIU/ML = 2821) [id number] 00:00:00 Test Item Value Reference Range Interpretation Comments TSH, THIRD GENERATION (test code 0.379 UIU/ML = 2821) [id number] 00:00:00 Test Item Value Reference Range Interpretation Comments TSH, THIRD GENERATION (test code 0.379 UIU/ML = 2821) [id number] 00:00:00 Test Item Value Reference Range Interpretation Comments TSH, THIRD GENERATION (test code 0.379 UIU/ML = 2821) [id number] 00:00:00 Test Item Value Reference Range Interpretation Comments TSH, THIRD GENERATION (test code 0.379 UIU/ML = 2821) [id number] 00:00:00 Test Item Value Reference Range Interpretation Comments TSH, THIRD GENERATION (test code 0.379 UIU/ML = 2821) [id number] 00:00:00 Test Item Value Reference Range Interpretation Comments TSH, THIRD GENERATION (test code 0.379 UIU/ML = 2821) [id number] 00:00:00 Test Item Value Reference Range Interpretation Comments TSH, THIRD GENERATION (test code 0.379 UIU/ML = 2821) [id number] 00:00:00 Test Item Value Reference Range Interpretation Comments TSH, THIRD GENERATION (test code 0.379 UIU/ML = 2821) [id number] 00:00:00 Test Item Value Reference Range Interpretation Comments TSH, THIRD GENERATION (test code 0.379 UIU/ML = 2821) CULTURE, [id number] 00:00:00 Test Item Value Reference Range Interpretation Comments CULTURE, URINE (test SPECIMEN NUMBER: code = 83969) [id number] CULTURE, [id number] 00:00:00 Test Item Value Reference Range Interpretation Comments CULTURE, URINE (test SPECIMEN NUMBER: code = 71266) [id number] CULTURE, [id number] 00:00:00 Test Item Value Reference Range Interpretation Comments CULTURE, URINE (test SPECIMEN NUMBER: code = 66153) [id number] CULTURE, [id number] 00:00:00 Test Item Value Reference Range Interpretation Comments CULTURE, URINE (test SPECIMEN NUMBER: code = 66655) [id number] CULTURE, [id number] 00:00:00 Test Item Value Reference Range Interpretation Comments CULTURE, URINE (test SPECIMEN NUMBER: code = 91631) [id number] CULTURE, [id number] 00:00:00 Test Item Value Reference Range Interpretation Comments CULTURE, URINE (test SPECIMEN NUMBER: code = 11015) [id number] CULTURE, [id number] 00:00:00 Test Item Value Reference Range Interpretation Comments CULTURE, URINE (test SPECIMEN NUMBER: code = 68849) [id number] COMPREHENSIVE METABOLIC [id number] 00:00:00 Test Item Value Reference Range Interpretation Comments GLUCOSE (test code = 2217) 128 MG/DL BUN (test code = 2208) 26 MG/DL CREATININE (test code = 2214) 0.92 MG/DL eGFR AMER. (test code 81 ML/MIN/1.73 = 24686) eGFR NON- AMER. (test 70 ML/MIN/1.73 code = 06170) CALC BUN/CREAT (test code = 28 RATIO [...] code = 2219) 29 U/L COMPREHENSIVE METABOLIC [id number] 00:00:00 Test Item Value Reference Range Interpretation Comments GLUCOSE (test code = 2217) 128 MG/DL BUN (test code = 2208) 26 MG/DL CREATININE (test code = 2214) 0.92 MG/DL eGFR AMER. (test code 81 ML/MIN/1.73 = 20992) eGFR NON- AMER. (test 70 ML/MIN/1.73 code = 79724) CALC BUN/CREAT (test code = 28 RATIO [...] code = 2219) 29 U/L ACUTE HEPATITIS [id number] 00:00:00 Test Item Value Reference Range Interpretation Comments HEPATITIS A IgM (test code = NON-REACTIVE 08104) HEPATITIS B CORE IgM (test code NON-REACTIVE = 7223) HEPATITIS B SURF AG (test code = NON-REACTIVE 9258) HEPATITIS C ANTIBODY (test code NON-REACTIVE = 9320) INTERPRETATION HEPATITIS A: (NOTE) (test code = 2552) INTERPRETATION HEPATITIS B: (NOTE) (test code = 26335) INTERPRETATION HEPATITIS C: (NOTE) (test code = 65965) ACUTE HEPATITIS [id number] 00:00:00 Test Item Value Reference Range Interpretation Comments HEPATITIS A IgM (test code = NON-REACTIVE 46010) HEPATITIS B CORE IgM (test code NON-REACTIVE = 4644) HEPATITIS B SURF AG (test code = NON-REACTIVE 1019) HEPATITIS C ANTIBODY (test code NON-REACTIVE = 9772) INTERPRETATION HEPATITIS A: (NOTE) (test code = 2552) INTERPRETATION HEPATITIS B: (NOTE) (test code = 02424) INTERPRETATION HEPATITIS C: (NOTE) (test code = 43954) [id number] 00:00:00 Test Item Value Reference Range Interpretation Comments AMYLASE (test code = 2205) 32 U/L [id number] 00:00:00 Test Item Value Reference Range Interpretation Comments AMYLASE (test code = 2205) 32 U/L [id number] 00:00:00 Test Item Value Reference Range Interpretation Comments LIPASE (test code = 2058) 22 U/L [id number] 00:00:00 Test Item Value Reference Range Interpretation Comments LIPASE (test code = 2058) 22 U/L [id number] 00:00:00 Test Item Value Reference Range Interpretation Comments LIPASE (test code = 2058) 22 U/L COMPREHENSIVE METABOLIC [id number] 00:00:00 Test Item Value Reference Range Interpretation Comments GLUCOSE (test code = 2217) 128 MG/DL BUN (test code = 2208) 26 MG/DL CREATININE (test code = 2214) 0.92 MG/DL eGFR AMER. (test code 81 ML/MIN/1.73 = 19626) eGFR NON- AMER. (test 70 ML/MIN/1.73 code = 33512) CALC BUN/CREAT (test code = 28 RATIO [...] code = 2219) 29 U/L COMPREHENSIVE METABOLIC [id number] 00:00:00 Test Item Value Reference Range Interpretation Comments GLUCOSE (test code = 2217) 128 MG/DL BUN (test code = 2208) 26 MG/DL CREATININE (test code = 2214) 0.92 MG/DL eGFR AMER. (test code 81 ML/MIN/1.73 = 20077) eGFR NON- AMER. (test 70 ML/MIN/1.73 code = 92568) CALC BUN/CREAT (test code = 28 RATIO [...] code = 2219) 29 U/L ACUTE HEPATITIS [id number] 00:00:00 Test Item Value Reference Range Interpretation Comments HEPATITIS A IgM (test code = NON-REACTIVE 63867) HEPATITIS B CORE IgM (test code NON-REACTIVE = 4644) HEPATITIS B SURF AG (test code = NON-REACTIVE 0660) HEPATITIS C ANTIBODY (test code NON-REACTIVE = 4675) INTERPRETATION HEPATITIS A: (NOTE) (test code = 2552) INTERPRETATION HEPATITIS B: (NOTE) (test code = 92395) INTERPRETATION HEPATITIS C: (NOTE) (test code = 40225) ACUTE HEPATITIS [id number] 00:00:00 Test Item Value Reference Range Interpretation Comments HEPATITIS A IgM (test code = NON-REACTIVE 62238) HEPATITIS B CORE IgM (test code NON-REACTIVE = 4644) HEPATITIS B SURF AG (test code = NON-REACTIVE 6365) HEPATITIS C ANTIBODY (test code NON-REACTIVE = 4618) INTERPRETATION HEPATITIS A: (NOTE) (test code = 2552) INTERPRETATION HEPATITIS B: (NOTE) (test code = 88078) INTERPRETATION HEPATITIS C: (NOTE) (test code = 96464) [id number] 00:00:00 Test Item Value Reference Range Interpretation Comments AMYLASE (test code = 2205) 32 U/L [id number] 00:00:00 Test Item Value Reference Range Interpretation Comments AMYLASE (test code = 2205) 32 U/L [id number] 00:00:00 Test Item Value Reference Range Interpretation Comments LIPASE (test code = 2058) 22 U/L [id number] 00:00:00 Test Item Value Reference Range Interpretation Comments LIPASE (test code = 2058) 22 U/L [id number] 00:00:00 Test Item Value Reference Range Interpretation Comments LIPASE (test code = 2058) 22 U/L COMPREHENSIVE METABOLIC [id number] 00:00:00 Test Item Value Reference Range Interpretation Comments GLUCOSE (test code = 2217) 128 MG/DL BUN (test code = 2208) 26 MG/DL CREATININE (test code = 2214) 0.92 MG/DL eGFR AMER. (test code 81 ML/MIN/1.73 = 99207) eGFR NON- AMER. (test 70 ML/MIN/1.73 code = 39805) CALC BUN/CREAT (test code = 28 RATIO [...] code = 2219) 29 U/L ACUTE HEPATITIS [id number] 00:00:00 Test Item Value Reference Range Interpretation Comments HEPATITIS A IgM (test code = NON-REACTIVE 59665) HEPATITIS B CORE IgM (test code NON-REACTIVE = 4644) HEPATITIS B SURF AG (test code = NON-REACTIVE 9143) HEPATITIS C ANTIBODY (test code NON-REACTIVE = 5355) INTERPRETATION HEPATITIS A: (NOTE) (test code = 2552) INTERPRETATION HEPATITIS B: (NOTE) (test code = 77077) INTERPRETATION HEPATITIS C: (NOTE) (test code = 98012) [id number] 00:00:00 Test Item Value Reference Range Interpretation Comments AMYLASE (test code = 2205) 32 U/L [id number] 00:00:00 Test Item Value Reference Range Interpretation Comments LIPASE (test code = 2058) 22 U/L [id number] 00:00:00 Test Item Value Reference Range Interpretation Comments LIPASE (test code = 2058) 22 U/L COMPREHENSIVE METABOLIC [id number] 00:00:00 Test Item Value Reference Range Interpretation Comments GLUCOSE (test code = 2217) 128 MG/DL BUN (test code = 2208) 26 MG/DL CREATININE (test code = 2214) 0.92 MG/DL eGFR AMER. (test code 81 ML/MIN/1.73 = 44023) eGFR NON- AMER. (test 70 ML/MIN/1.73 code = 56209) CALC BUN/CREAT (test code = 28 RATIO [...] code = 2219) 29 U/L COMPREHENSIVE METABOLIC [id number] 00:00:00 Test Item Value Reference Range Interpretation Comments GLUCOSE (test code = 2217) 128 MG/DL BUN (test code = 2208) 26 MG/DL CREATININE (test code = 2214) 0.92 MG/DL eGFR AMER. (test code 81 ML/MIN/1.73 = 85433) eGFR NON- AMER. (test 70 ML/MIN/1.73 code = 09458) CALC BUN/CREAT (test code = 28 RATIO [...] code = 2219) 29 U/L ACUTE HEPATITIS [id number] 00:00:00 Test Item Value Reference Range Interpretation Comments HEPATITIS A IgM (test code = NON-REACTIVE 36679) HEPATITIS B CORE IgM (test code NON-REACTIVE = 4644) HEPATITIS B SURF AG (test code = NON-REACTIVE 2739) HEPATITIS C ANTIBODY (test code NON-REACTIVE = 4675) INTERPRETATION HEPATITIS A: (NOTE) (test code = 2552) INTERPRETATION HEPATITIS B: (NOTE) (test code = 95891) INTERPRETATION HEPATITIS C: (NOTE) (test code = 49016) ACUTE HEPATITIS [id number] 00:00:00 Test Item Value Reference Range Interpretation Comments HEPATITIS A IgM (test code = NON-REACTIVE 85871) HEPATITIS B CORE IgM (test code NON-REACTIVE = 4644) HEPATITIS B SURF AG (test code = NON-REACTIVE 2739) HEPATITIS C ANTIBODY (test code NON-REACTIVE = 4675) INTERPRETATION HEPATITIS A: (NOTE) (test code = 2552) INTERPRETATION HEPATITIS B: (NOTE) (test code = 67767) INTERPRETATION HEPATITIS C: (NOTE) (test code = 88803) [id number] 00:00:00 Test Item Value Reference Range Interpretation Comments AMYLASE (test code = 2205) 32 U/L [id number] 00:00:00 Test Item Value Reference Range Interpretation Comments AMYLASE (test code = 2205) 32 U/L [id number] 00:00:00 Test Item Value Reference Range Interpretation Comments LIPASE (test code = 2058) 22 U/L [id number] 00:00:00 Test Item Value Reference Range Interpretation Comments LIPASE (test code = 2058) 22 U/L [id number] 00:00:00 Test Item Value Reference Range Interpretation Comments LIPASE (test code = 2058) 22 U/L [id number] 00:00:00 Test Item Value Reference Range Interpretation Comments TSH, THIRD GENERATION (test code 4.890 UIU/ML = 2821) [id number] 00:00:00 Test Item Value Reference Range Interpretation Comments TSH, THIRD GENERATION (test code 4.890 UIU/ML = 2821) [id number] 00:00:00 Test Item Value Reference Range Interpretation Comments TSH, THIRD GENERATION (test code 4.890 UIU/ML = 2821) COMPREHENSIVE METABOLIC [id number] 00:00:00 Test Item Value Reference Range Interpretation Comments GLUCOSE (test code = 2217) 121 MG/DL BUN (test code = 2208) 40 MG/DL CREATININE (test code = 2214) 1.48 MG/DL eGFR AMER. (test code 45 ML/MIN/1.73 = 59007) eGFR NON- AMER. (test 39 ML/MIN/1.73 code = 73946) CALC BUN/CREAT (test code = 27 RATIO [...] code = 2219) 20 U/L COMPREHENSIVE METABOLIC [id number] 00:00:00 Test Item Value Reference Range Interpretation Comments GLUCOSE (test code = 2217) 121 MG/DL BUN (test code = 2208) 40 MG/DL CREATININE (test code = 2214) 1.48 MG/DL eGFR AMER. (test code 45 ML/MIN/1.73 = 79418) eGFR NON- AMER. (test 39 ML/MIN/1.73 code = 39184) CALC BUN/CREAT (test code = 27 RATIO [...] ALT (test code = 2219) 20 U/L [id number] 00:00:00 Test Item Value Reference Range Interpretation Comments TSH, THIRD GENERATION (test code 4.890 UIU/ML = 2821) [id number] 00:00:00 Test Item Value Reference Range Interpretation Comments TSH, THIRD GENERATION (test code 4.890 UIU/ML = 2821) [id number] 00:00:00 Test Item Value Reference Range Interpretation Comments TSH, THIRD GENERATION (test code 4.890 UIU/ML = 2821) COMPREHENSIVE METABOLIC [id number] 00:00:00 Test Item Value Reference Range Interpretation Comments GLUCOSE (test code = 2217) 121 MG/DL BUN (test code = 2208) 40 MG/DL CREATININE (test code = 2214) 1.48 MG/DL eGFR AMER. (test code 45 ML/MIN/1.73 = 64556) eGFR NON- AMER. (test 39 ML/MIN/1.73 code = 38946) CALC BUN/CREAT (test code = 27 RATIO [...] code = 2219) 20 U/L COMPREHENSIVE METABOLIC [id number] 00:00:00 Test Item Value Reference Range Interpretation Comments GLUCOSE (test code = 2217) 121 MG/DL BUN (test code = 2208) 40 MG/DL CREATININE (test code = 2214) 1.48 MG/DL eGFR AMER. (test code 45 ML/MIN/1.73 = 48989) eGFR NON- AMER. (test 39 ML/MIN/1.73 code = 34007) CALC BUN/CREAT (test code = 27 RATIO [...] ALT (test code = 2219) 20 U/L [id number] 00:00:00 Test Item Value Reference Range Interpretation Comments TSH, THIRD GENERATION (test code 4.890 UIU/ML = 2821) [id number] 00:00:00 Test Item Value Reference Range Interpretation Comments TSH, THIRD GENERATION (test code 4.890 UIU/ML = 2821) COMPREHENSIVE METABOLIC [id number] 00:00:00 Test Item Value Reference Range Interpretation Comments GLUCOSE (test code = 2217) 121 MG/DL BUN (test code = 2208) 40 MG/DL CREATININE (test code = 2214) 1.48 MG/DL eGFR AMER. (test code 45 ML/MIN/1.73 = 22230) eGFR NON- AMER. (test 39 ML/MIN/1.73 code = 02457) CALC BUN/CREAT (test code = 27 RATIO [...] ALT (test code = 2219) 20 U/L [id number] 00:00:00 Test Item Value Reference Range Interpretation Comments TSH, THIRD GENERATION (test code 4.890 UIU/ML = 2821) [id number] 00:00:00 Test Item Value Reference Range Interpretation Comments TSH, THIRD GENERATION (test code 4.890 UIU/ML = 2821) [id number] 00:00:00 Test Item Value Reference Range Interpretation Comments TSH, THIRD GENERATION (test code 4.890 UIU/ML = 2821) COMPREHENSIVE METABOLIC [id number] 00:00:00 Test Item Value Reference Range Interpretation Comments GLUCOSE (test code = 2217) 121 MG/DL BUN (test code = 2208) 40 MG/DL CREATININE (test code = 2214) 1.48 MG/DL eGFR AMER. (test code 45 ML/MIN/1.73 = 12698) eGFR NON- AMER. (test 39 ML/MIN/1.73 code = 57985) CALC BUN/CREAT (test code = 27 RATIO [...] code = 2219) 20 U/L COMPREHENSIVE METABOLIC [id number] 00:00:00 Test Item Value Reference Range Interpretation Comments GLUCOSE (test code = 2217) 121 MG/DL BUN (test code = 2208) 40 MG/DL CREATININE (test code = 2214) 1.48 MG/DL eGFR AMER. (test code 45 ML/MIN/1.73 = 22631) eGFR NON- AMER. (test 39 ML/MIN/1.73 code = 99974) CALC BUN/CREAT (test code = 27 RATIO [...] (test code = 2219) 20 U/L LIPID [id number] 00:00:00 Test Item Value Reference Range Interpretation Comments CHOLESTEROL (test code = 2210) 261 MG/DL TRIGLYCERIDES (test code = 2232) 165 MG/DL HDL CHOLESTEROL (test code = 2220) 58 MG/DL CALC LDL CHOL (test code = 2237) 170 MG/DL RISK RATIO LDL/HDL (test code = 2.93 RATIO 2238) LIPID [id number] 00:00:00 Test Item Value Reference Range Interpretation Comments CHOLESTEROL (test code = 2210) 261 MG/DL TRIGLYCERIDES (test code = 2232) 165 MG/DL HDL CHOLESTEROL (test code = 2220) 58 MG/DL CALC LDL CHOL (test code = 2237) 170 MG/DL RISK RATIO LDL/HDL (test code = 2.93 RATIO 2238) CBC W/AUTO [id number] 00:00:00 Test Item Value Reference Range Interpretation [...] code = 1015) 378 K/UL CBC W/AUTO [id number] 00:00:00 Test Item Value Reference Range Interpretation [...] code = 1015) 378 K/UL CBC W/AUTO [id number] 00:00:00 Test Item Value Reference Range Interpretation [...] (test code = 1015) 378 K/UL HEMOGLOBIN [id number] 00:00:00 Test Item Value Reference Range Interpretation Comments HEMOGLOBIN A1c (test code = 81590) 6.4 % HEMOGLOBIN [id number] 00:00:00 Test Item Value Reference Range Interpretation Comments HEMOGLOBIN A1c (test code = 14323) 6.4 % HEMOGLOBIN [id number] 00:00:00 Test Item Value Reference Range Interpretation Comments HEMOGLOBIN A1c (test code = 32881) 6.4 % [id number] 00:00:00 Test Item Value Reference Range Interpretation Comments TSH (test code = 2821) 5.290 UIU/ML [id number] 00:00:00 Test Item Value Reference Range Interpretation Comments TSH (test code = 2821) 5.290 UIU/ML [id number] 00:00:00 Test Item Value Reference Range Interpretation Comments TSH (test code = 2821) 5.290 UIU/ML LIPID [id number] 00:00:00 Test Item Value Reference Range Interpretation Comments CHOLESTEROL (test code = 2210) 261 MG/DL TRIGLYCERIDES (test code = 2232) 165 MG/DL HDL CHOLESTEROL (test code = 2220) 58 MG/DL CALC LDL CHOL (test code = 2237) 170 MG/DL RISK RATIO LDL/HDL (test code = 2.93 RATIO 2238) LIPID [id number] 00:00:00 Test Item Value Reference Range Interpretation Comments CHOLESTEROL (test code = 2210) 261 MG/DL TRIGLYCERIDES (test code = 2232) 165 MG/DL HDL CHOLESTEROL (test code = 2220) 58 MG/DL CALC LDL CHOL (test code = 2237) 170 MG/DL RISK RATIO LDL/HDL (test code = 2.93 RATIO 2238) CBC W/AUTO [id number] 00:00:00 Test Item Value Reference Range Interpretation [...] code = 1015) 378 K/UL CBC W/AUTO [id number] 00:00:00 Test Item Value Reference Range Interpretation [...] code = 1015) 378 K/UL CBC W/AUTO [id number] 00:00:00 Test Item Value Reference Range Interpretation [...] (test code = 1015) 378 K/UL HEMOGLOBIN [id number] 00:00:00 Test Item Value Reference Range Interpretation Comments HEMOGLOBIN A1c (test code = 26804) 6.4 % HEMOGLOBIN [id number] 00:00:00 Test Item Value Reference Range Interpretation Comments HEMOGLOBIN A1c (test code = 97176) 6.4 % HEMOGLOBIN [id number] 00:00:00 Test Item Value Reference Range Interpretation Comments HEMOGLOBIN A1c (test code = 91790) 6.4 % [id number] 00:00:00 Test Item Value Reference Range Interpretation Comments TSH (test code = 2821) 5.290 UIU/ML [id number] 00:00:00 Test Item Value Reference Range Interpretation Comments TSH (test code = 2821) 5.290 UIU/ML [id number] 00:00:00 Test Item Value Reference Range Interpretation Comments TSH (test code = 2821) 5.290 UIU/ML LIPID [id number] 00:00:00 Test Item Value Reference Range Interpretation Comments CHOLESTEROL (test code = 2210) 261 MG/DL TRIGLYCERIDES (test code = 2232) 165 MG/DL HDL CHOLESTEROL (test code = 2220) 58 MG/DL CALC LDL CHOL (test code = 2237) 170 MG/DL RISK RATIO LDL/HDL (test code = 2.93 RATIO 2238) CBC W/AUTO [id number] 00:00:00 Test Item Value Reference Range Interpretation [...] code = 1015) 378 K/UL CBC W/AUTO [id number] 00:00:00 Test Item Value Reference Range Interpretation [...] (test code = 1015) 378 K/UL HEMOGLOBIN [id number] 00:00:00 Test Item Value Reference Range Interpretation Comments HEMOGLOBIN A1c (test code = 06249) 6.4 % HEMOGLOBIN [id number] 00:00:00 Test Item Value Reference Range Interpretation Comments HEMOGLOBIN A1c (test code = 92474) 6.4 % [id number] 00:00:00 Test Item Value Reference Range Interpretation Comments TSH (test code = 2821) 5.290 UIU/ML [id number] 00:00:00 Test Item Value Reference Range Interpretation Comments TSH (test code = 2821) 5.290 UIU/ML LIPID [id number] 00:00:00 Test Item Value Reference Range Interpretation Comments CHOLESTEROL (test code = 2210) 261 MG/DL TRIGLYCERIDES (test code = 2232) 165 MG/DL HDL CHOLESTEROL (test code = 2220) 58 MG/DL CALC LDL CHOL (test code = 2237) 170 MG/DL RISK RATIO LDL/HDL (test code = 2.93 RATIO 2238) LIPID [id number] 00:00:00 Test Item Value Reference Range Interpretation Comments CHOLESTEROL (test code = 2210) 261 MG/DL TRIGLYCERIDES (test code = 2232) 165 MG/DL HDL CHOLESTEROL (test code = 2220) 58 MG/DL CALC LDL CHOL (test code = 2237) 170 MG/DL RISK RATIO LDL/HDL (test code = 2.93 RATIO 2238) CBC W/AUTO [id number] 00:00:00 Test Item Value Reference Range Interpretation [...] code = 1015) 378 K/UL CBC W/AUTO [id number] 00:00:00 Test Item Value Reference Range Interpretation [...] code = 1015) 378 K/UL CBC W/AUTO [id number] 00:00:00 Test Item Value Reference Range Interpretation [...] (test code = 1015) 378 K/UL HEMOGLOBIN [id number] 00:00:00 Test Item Value Reference Range Interpretation Comments HEMOGLOBIN A1c (test code = 46292) 6.4 % HEMOGLOBIN [id number] 00:00:00 Test Item Value Reference Range Interpretation Comments HEMOGLOBIN A1c (test code = 00465) 6.4 % HEMOGLOBIN [id number] 00:00:00 Test Item Value Reference Range Interpretation Comments HEMOGLOBIN A1c (test code = 80593) 6.4 % [id number] 00:00:00 Test Item Value Reference Range Interpretation Comments TSH (test code = 2821) 5.290 UIU/ML [id number] 00:00:00 Test Item Value Reference Range Interpretation Comments TSH (test code = 2821) 5.290 UIU/ML [id number] 00:00:00 Test Item Value Reference Range Interpretation [...] code = 2821) 1.030 UIU/ML COMPREHENSIVE METABOLIC [id number] 00:00:00 Test Item Value Reference Range Interpretation Comments GLUCOSE (test code = 2217) 106 MG/DL BUN (test code = 2208) 23 MG/DL CREATININE (test code = 2214) 0.66 MG/DL eGFR AMER. (test code 114 ML/MIN/1.73 = 44415) eGFR NON- AMER. (test 99 ML/MIN/1.73 code = 76553) CALC BUN/CREAT (test code = 35 RATIO [...] code = 2219) 31 U/L COMPREHENSIVE METABOLIC [id number] 00:00:00 Test Item Value Reference Range Interpretation Comments GLUCOSE (test code = 2217) 106 MG/DL BUN (test code = 2208) 23 MG/DL CREATININE (test code = 2214) 0.66 MG/DL eGFR AMER. (test code 114 ML/MIN/1.73 = 50391) eGFR NON- AMER. (test 99 ML/MIN/1.73 code = 23819) CALC BUN/CREAT (test code = 35 RATIO [...] code = 2821) 0.335 UIU/ML COMPREHENSIVE METABOLIC [id number] 00:00:00 Test Item Value Reference Range Interpretation Comments GLUCOSE (test code = 2217) 106 MG/DL BUN (test code = 2208) 23 MG/DL CREATININE (test code = 2214) 0.66 MG/DL eGFR AMER. (test code 114 ML/MIN/1.73 = 00116) eGFR NON- AMER. (test 99 ML/MIN/1.73 code = 98241) CALC BUN/CREAT (test code = 35 RATIO [...] code = 2219) 31 U/L COMPREHENSIVE METABOLIC [id number] 00:00:00 Test Item Value Reference Range Interpretation Comments GLUCOSE (test code = 2217) 106 MG/DL BUN (test code = 2208) 23 MG/DL CREATININE (test code = 2214) 0.66 MG/DL eGFR AMER. (test code 114 ML/MIN/1.73 = 85882) eGFR NON- AMER. (test 99 ML/MIN/1.73 code = 71004) CALC BUN/CREAT (test code = 35 RATIO [...] code = 2821) 0.335 UIU/ML COMPREHENSIVE METABOLIC [id number] 00:00:00 Test Item Value Reference Range Interpretation Comments GLUCOSE (test code = 2217) 106 MG/DL BUN (test code = 2208) 23 MG/DL CREATININE (test code = 2214) 0.66 MG/DL eGFR AMER. (test code 114 ML/MIN/1.73 = 72844) eGFR NON- AMER. (test 99 ML/MIN/1.73 code = 28656) CALC BUN/CREAT (test code = 35 RATIO [...] code = 2821) 0.335 UIU/ML COMPREHENSIVE METABOLIC [id number] 00:00:00 Test Item Value Reference Range Interpretation Comments GLUCOSE (test code = 2217) 106 MG/DL BUN (test code = 2208) 23 MG/DL CREATININE (test code = 2214) 0.66 MG/DL eGFR AMER. (test code 114 ML/MIN/1.73 = 46756) eGFR NON- AMER. (test 99 ML/MIN/1.73 code = 81454) CALC BUN/CREAT (test code = 35 RATIO [...] code = 2219) 31 U/L COMPREHENSIVE METABOLIC [id number] 00:00:00 Test Item Value Reference Range Interpretation Comments GLUCOSE (test code = 2217) 106 MG/DL BUN (test code = 2208) 23 MG/DL CREATININE (test code = 2214) 0.66 MG/DL eGFR AMER. (test code 114 ML/MIN/1.73 = 47166) eGFR NON- AMER. (test 99 ML/MIN/1.73 code = 81325) CALC BUN/CREAT (test code = 35 RATIO [...] code = 2821) 0.335 UIU/ML COMPREHENSIVE METABOLIC [id number] 00:00:00 Test Item Value Reference Range Interpretation Comments GLUCOSE (test code = 2217) 103 MG/DL BUN (test code = 2208) 15 MG/DL CREATININE (test code = 2214) 0.77 MG/DL eGFR AMER. (test code 101 ML/MIN/1.73 = 19963) eGFR NON- AMER. (test 87 ML/MIN/1.73 code = 07363) CALC BUN/CREAT (test code = 19 RATIO [...] code = 2219) 24 U/L COMPREHENSIVE METABOLIC [id number] 00:00:00 Test Item Value Reference Range Interpretation Comments GLUCOSE (test code = 2217) 103 MG/DL BUN (test code = 2208) 15 MG/DL CREATININE (test code = 2214) 0.77 MG/DL eGFR AMER. (test code 101 ML/MIN/1.73 = 37996) eGFR NON- AMER. (test 87 ML/MIN/1.73 code = 00936) CALC BUN/CREAT (test code = 19 RATIO [...] code = 2821) 0.424 UIU/ML COMPREHENSIVE METABOLIC [id number] 00:00:00 Test Item Value Reference Range Interpretation Comments GLUCOSE (test code = 2217) 103 MG/DL BUN (test code = 2208) 15 MG/DL CREATININE (test code = 2214) 0.77 MG/DL eGFR AMER. (test code 101 ML/MIN/1.73 = 38158) eGFR NON- AMER. (test 87 ML/MIN/1.73 code = 17310) CALC BUN/CREAT (test code = 19 RATIO [...] code = 2219) 24 U/L COMPREHENSIVE METABOLIC [id number] 00:00:00 Test Item Value Reference Range Interpretation Comments GLUCOSE (test code = 2217) 103 MG/DL BUN (test code = 2208) 15 MG/DL CREATININE (test code = 2214) 0.77 MG/DL eGFR AMER. (test code 101 ML/MIN/1.73 = 69739) eGFR NON- AMER. (test 87 ML/MIN/1.73 code = 43760) CALC BUN/CREAT (test code = 19 RATIO [...] code = 2821) 0.424 UIU/ML COMPREHENSIVE METABOLIC [id number] 00:00:00 Test Item Value Reference Range Interpretation Comments GLUCOSE (test code = 2217) 103 MG/DL BUN (test code = 2208) 15 MG/DL CREATININE (test code = 2214) 0.77 MG/DL eGFR AMER. (test code 101 ML/MIN/1.73 = 18453) eGFR NON- AMER. (test 87 ML/MIN/1.73 code = 70683) CALC BUN/CREAT (test code = 19 RATIO [...] code = 2821) 0.424 UIU/ML COMPREHENSIVE METABOLIC [id number] 00:00:00 Test Item Value Reference Range Interpretation Comments GLUCOSE (test code = 2217) 103 MG/DL BUN (test code = 2208) 15 MG/DL CREATININE (test code = 2214) 0.77 MG/DL eGFR AMER. (test code 101 ML/MIN/1.73 = 37644) eGFR NON- AMER. (test 87 ML/MIN/1.73 code = 89618) CALC BUN/CREAT (test code = 19 RATIO [...] code = 2219) 24 U/L COMPREHENSIVE METABOLIC [id number] 00:00:00 Test Item Value Reference Range Interpretation Comments GLUCOSE (test code = 2217) 103 MG/DL BUN (test code = 2208) 15 MG/DL CREATININE (test code = 2214) 0.77 MG/DL eGFR AMER. (test code 101 ML/MIN/1.73 = 09909) eGFR NON- AMER. (test 87 ML/MIN/1.73 code = 44702) CALC BUN/CREAT (test code = 19 RATIO [...] (test code = 2821) 0.424 UIU/ML CULTURE, [id number] 00:00:00 Test Item Value Reference Range Interpretation Comments CULTURE, URINE (test SPECIMEN NUMBER: code = 83207) [id number] CULTURE, [id number] 00:00:00 Test Item Value Reference Range Interpretation Comments CULTURE, URINE (test SPECIMEN NUMBER: code = 31254) [id number] CULTURE, [id number] 00:00:00 Test Item Value Reference Range Interpretation Comments CULTURE, URINE (test SPECIMEN NUMBER: code = 49240) [id number] CULTURE, [id number] 00:00:00 Test Item Value Reference Range Interpretation Comments CULTURE, URINE (test SPECIMEN NUMBER: code = 87593) [id number] CULTURE, [id number] 00:00:00 Test Item Value Reference Range Interpretation Comments CULTURE, URINE (test SPECIMEN NUMBER: code = 13682) [id number] CULTURE, [id number] 00:00:00 Test Item Value Reference Range Interpretation Comments CULTURE, URINE (test SPECIMEN NUMBER: code = 42327) [id number] CULTURE, [id number] 00:00:00 Test Item Value Reference Range Interpretation Comments CULTURE, URINE (test SPECIMEN NUMBER: code = 11157) [id number] CULTURE, [id number] 00:00:00 Test Item Value Reference Range Interpretation Comments CULTURE, URINE (test SPECIMEN NUMBER: code = 12781) [id number] CULTURE, [id number] 00:00:00 Test Item Value Reference Range Interpretation Comments CULTURE, URINE (test SPECIMEN NUMBER: code = 32412) [id number] CULTURE, [id number] 00:00:00 Test Item Value Reference Range Interpretation Comments CULTURE, URINE (test SPECIMEN NUMBER: code = 35430) [id number] CULTURE, [id number] 00:00:00 Test Item Value Reference Range Interpretation Comments CULTURE, URINE (test SPECIMEN NUMBER: code = 42011) [id number] CULTURE, [id number] 00:00:00 Test Item Value Reference Range Interpretation Comments CULTURE, URINE (test SPECIMEN NUMBER: code = 33037) [id number] CULTURE, [id number] 00:00:00 Test Item Value Reference Range Interpretation Comments CULTURE, URINE (test SPECIMEN NUMBER: code = 70938) [id number] CULTURE, [id number] 00:00:00 Test Item Value Reference Range Interpretation Comments CULTURE, URINE (test SPECIMEN NUMBER: code = 60659) [id number]
[2022-07-29 10:30] LABS: Absolute Lymphocytes (CBC) 4.5 K/uL (0.7-4.9); MCV 93.2 fL (80-100); MPV 6.8 fL (7.6-11.3); RBC Red Blood Cell Count 3.97 M/uL (3.86-4.86)
[2022-07-29 10:34] LABS: Protime INR 0.85
[2022-07-29] MEDS ORDERED: PROMETHAZINE INJ 25 MG/ML AMP ONE ×2 (10:45→11:19)
--- NOTE | 2022-07-29 10:45 | RAD REPORT ---
EXAM DESCRIPTION: CT - Head Brain Wo Cont - 07/29/2022 10:32 am CLINICAL HISTORY: CONFUSED Headache, drowsiness COMPARISON: Head Brain Wo Cont dated 07/02/2022; Head Brain Wo Cont dated 07/01/2022 TECHNIQUE: All CT scans are performed using dose optimization technique as appropriate and may inclu de automated exposure control or mA/KV adjustment according to patient size. FINDINGS: No intracranial hemorrhage, hydrocephalus or extra-axial fluid collection.Mild generalized brain atrophy.No areas of brain edema or evidence of midline shift. The paranasal sinuses and mastoids are clear. The calvarium is intact. IMPRESSION: No acute intracranial abnormality.
[2022-07-29 10:56] LABS: Albumin 3.9 g/dL (3.4-5.0); Bilirubin Direct 0.1 mg/dL (0-0.2); Bilirubin Indirect, Calculated 0.1 mg/dL (0.2-0.8); Bilirubin Total 0.2 mg/dL (0.2-1.0); Magnesium 1.9 mg/dL (1.6-2.4); Potassium 3.8 mEq/L (3.5-5.1)
[2022-07-29 11:08] LABS: Specific Gravity > 1.030 (1.005-1.030); Urine Bacteria None Seen /HPF (<20); Urine Bilirubin NEGATIVE (Negative); Urine Blood Negative (Negative); Urine Clarity Clear (Clear); Urine Color Yellow (Yellow); Urine Glucose 3+ (Negative); Urine Mucus Slight /HPF (None Seen); Urine Protein TRACE (Negative); Urine RBC <5 /HPF (None Seen); Urine Urobilinogen Normal (Normal)
[2022-07-29 11:20] LABS: Barbiturates NEGATIVE (NEGATIVE); Benzodiazepines NEGATIVE (NEGATIVE); Cocaine NEGATIVE (NEGATIVE); METHAMPHETAM NEGATIVE (NEGATIVE); Methadone NEGATIVE (NEGATIVE); Opiates NEGATIVE (NEGATIVE); Phencyclidine NEGATIVE (NEGATIVE); THC Cannibis NEGATIVE (NEGATIVE)
[2022-07-29] MEDS ORDERED: NA CHLORIDE 0.9% 1,000 ML ONE (11:44)
[2022-07-29] MEDS ORDERED: LORazepam 2 MG/ML VIAL ONE (11:44)
--- NOTE | 2022-07-29 12:01 | ER ---
Nurse's Notes [facility] Name: Jaimie Amanda Age: 61 yrs Sex: Female : 1960 Arrival Date: 07/29/2022 Time: 10:03 Bed 13 Private MD: Diagnosis: Altered mental status, unspecified;Intractable nausea and vomiting Presentation: 07/29 10:24 Chief complaint: EMS states: toned out to patient home for low sodium per parent. EMS ld1 arrived to home - pt was confused, altered, not responding appropriately. Upon arrival to ER pt is confused, denies pain. Coronavirus screen: At this time, the client does not indicate any symptoms associated with coronavirus-19. Ebola Screen: No symptoms or risks identified at this time. Initial Sepsis Screen: Does the patient meet any 2 criteria? No. Patient's initial sepsis screen is negative. Does the patient have a suspected source of infection? No. Patient's initial sepsis screen is negative. Risk Assessment: Do you want to hurt yourself or someone else? Patient reports no desire to harm self or others. Onset of symptoms was July 29, 2022. 10:24 Method Of Arrival: EMS: [facility] ld1 10:24 Acuity: ZHEN 2 ld1 Triage Assessment: 10:26 General: Appears in no apparent distress. uncomfortable, unkempt, Behavior is calm, ld1 cooperative. Pain: Denies pain. EENT: No signs and/or symptoms were reported regarding the EENT system. Neuro: Level of Consciousness is awake, alert, confused, lethargic, Oriented to none. Cardiovascular: Capillary refill < 3 seconds Patient's skin is warm and dry. Rhythm is sinus rhythm. Respiratory: Airway is patent Respiratory effort is even, unlabored. GI: Abdomen is flat, non-distended, Reports nausea. : No signs and/or symptoms were reported regarding the genitourinary system. Derm: No signs and/or symptoms reported regarding the dermatologic system. Musculoskeletal: No signs and/or symptoms reported regarding the musculoskeletal system. Historical: - Allergies: 10:26 hydrochlorothiazide; ld1 - PMHx: 10:26 Anxiety; Chronic Abdominal Pain; Hypertensive disorder; Hypothyroidism; NIDDM; low NA; ld1 - PSHx: 10: Thyroidectomy; ld1 - Immunization history:: Adult Immunizations up to date, Client reports receiving the 2nd dose of the Covid vaccine. - Social history:: Smoking status: Patient reports the use of cigarette tobacco products, smokes one-half pack cigarettes per day, Patient/guardian denies using alcohol. Screenin:27 [facility] ED Fall Risk Assessment (Adult) History of falling in the last 3 months, ld1 including since admission No falls in past 3 months (0 pts). Abuse screen: Denies threats or abuse. Denies injuries from another. Nutritional screening: No deficits noted. Tuberculosis screening: No symptoms or risk factors identified. Assessment: 10:27 Reassessment: See triage assessment. ld1 11:42 Reassessment: No changes from previously documented assessment. Patient and/or family ld1 updated on plan of care and expected duration. Pain level reassessed. Pt reporting anxiety. Notified ERP. See [facility] for orders. 14:24 Reassessment: [phone] - Jaimie Contreras. ld1 14:38 Reassessment: Attempted to call report - Nurse unavailable at this time " at lunch." ld1 Nurse supposed to call back in 15 min. Vital Signs: 10:24 BP 191 / 86; Pulse 95; Resp 20; Temp 98.3(O); Pulse Ox 98% on R/A; Weight 77.11 kg; ld1 Height 5 ft. 3 in. ; Pain 0/10; 11:03 BP 147 / 112; Pulse 85; Resp 18; Pulse Ox 97% on R/A; ld1 11:42 BP 176 / 92; Pulse 80; Resp 18; Pulse Ox 97% on R/A; ld1 13:30 BP 160 / 79; Pulse 75; Resp 18; Pulse Ox 97% on R/A; ld1 15:08 BP 166 / 116; Pulse 80; Resp 18; Pulse Ox 97% on R/A; ld1 10:24 Body Mass Index 30.11 (77.11 kg, 160.02 cm) ld1 10:24 Pain Scale: Adult ld1 NIH Stroke Scale Scores: 10:24 NIHSS Score: 14 [facility] ED Course: 10:08 Patient arrived in ED. 1 10:11 Viridiana Peters FNP is [facility] 10:11 Diego Ramirez MD is Attending Physician. jh7 10:13 Maritza Singh, RN is Primary Nurse. ld1 10:23 Inserted saline lock: 22 gauge in right antecubital area, using aseptic technique. ld1 Blood collected. 10:26 Triage completed. ld1 10:26 Arm band placed on right wrist. ld1 10:27 No provider procedures requiring assistance completed. ld1 10:27 Patient has correct armband on for positive identification. Placed in gown. Bed in low ld1 position. Call light in reach. Side rails up X2. quality assurance monitor body on. Pulse ox on. NIBP on. Door closed. Noise minimized. Warm blanket given. 10:34 CT Head Brain wo Cont In Process Unspecified. EDMS 11:03 Bryant cath inserted, using sterile technique, 16 Fr., by or, balloon inflated, urine ld1 specimen collected. 11:27 XRAY Chest (1 view) In Process Unspecified. EDMS 12:00 Bridger Downing MD is Hospitalizing Provider. [facility] 13:08 MRI - Brain Wo Cont In Process Unspecified. EDMS 15:10 IV discontinued, intact, bleeding controlled, No redness/swelling at site. ld1 Administered Medications: 10:56 Drug: Promethazine IVP 12.5 mg Route: IVP; Site: right antecubital; aa5 11:16 Drug: Promethazine IVP 12.5 mg Route: IVP; Site: right antecubital; ld1 11:41 Drug: NS 0.9% IV 1000 ml Route: IV; Rate: 1 bolus; Site: right antecubital; ld1 11:41 Drug: Ativan IVP 1 mg Route: IVP; Site: right antecubital; ld1 14:26 Drug: Thiamine IV 100 mg Route: IV; Rate: 1 calculated rate; Site: right antecubital; ld1 Medication: 10:27 VIS not applicable for this client. ld1 Outcome: 12:01 Decision to Hospitalize by Provider. [facility] 15:09 Admitted to Med/surg accompanied by nurse, via stretcher, room 228, Report called to verena Rudolph RN 15:09 Condition: stable 15:09 Instructed on the need for admit. 15:10 Patient left the ED. ld1 NIH Stroke Scale - NIH Stroke Score Date: 07/29/2022 Time: 10:24 Total Score = 14 10. Dysarthria (speech clarity - read or repeat words) - 1(Mild to Moderate) 11. Extinction and Inattention (visual/tactile/auditory/spatial/personal) - 1(Present) 1a. Level of Consciousness (LOC) - 0(Alert) 1b. Level of Consciousness (LOC) (Month \\T\\ Age) - 2(Neither) 1c. LOC Commands (Open \\T\\ Closes Eyes/Buffet Attendant) - 0(Both) 2. Best Gaze (Lateral Gaze Paresis) - 1(Partial gaze palsy) 3. Visual Field Loss - 0(No visual loss) 4. Facial Palsy - 0(Normal) 5a. Left Arm: Motor (10-second hold) - 1(Drift) 5b. Right Arm: Motor (10-second hold) - 1(Drift) 6a. Left Leg: Motor (5-second hold - always test supine) - 3(No effort against gravity) 6b. Right Leg: Motor (5-second hold - always test supine) - 3(No effort against gravity) 7. Limb Ataxia (finger/nose \\T\\ heel/richards - test with eyes open) - 0(Absent) 8. Sensory Loss (pinprick arms/legs/face) - 0(Normal) 9. Best Language: Aphasia (description/naming/reading) - 1(Mild to moderate aphasia) Initials: [facility] Signatures: Dispatcher [employer] Bhavna Darling, RN RN aa5 Maritza Singh RN RN ld1 Viridiana Peters, SERGER SERGER [facility]
--- NOTE | 2022-07-29 12:01 | EDPHYS ---
Physician Documentation [facility] Name: Jaimie Amanda Age: 61 yrs Sex: Female : 1960 Arrival Date: 07/29/2022 Time: 10:03 Bed 13 Private MD: ED Physician Diego Ramirez HPI: 07/29 10:24 This 61 yrs old Female presents to ER via EMS with complaints of AMS. jh7 10:24 EMS toned out for altered mental status and possible low sodium. The patient's mom jh7 states that the patient has had an unstable gait and has been acting confused since yesterday. She reports that this normally happens when the patient has low sodium. The patient was discharged from the ER at 330 this morning.. Historical: - Allergies: 10:26 hydrochlorothiazide; ld1 - PMHx: 10:26 Anxiety; Chronic Abdominal Pain; Hypertensive disorder; Hypothyroidism; NIDDM; low NA; ld1 - PSHx: 10:26 Thyroidectomy; ld1 - Immunization history:: Adult Immunizations up to date, Client reports receiving the 2nd dose of the Covid vaccine. - Social history:: Smoking status: Patient reports the use of cigarette tobacco products, smokes one-half pack cigarettes per day, Patient/guardian denies using alcohol. ROS: 10:24 Constitutional: Negative for fever, chills, and weight loss, Eyes: Negative for injury, jh7 pain, redness, and discharge, Neck: Negative for injury, pain, and swelling, Cardiovascular: Negative for chest pain, palpitations, and edema, Respiratory: Negative for shortness of breath, cough, wheezing, and pleuritic chest pain, Abdomen/GI: Negative for abdominal pain, nausea, vomiting, diarrhea, and constipation, Back: Negative for injury and pain, MS/Extremity: Negative for injury and deformity, Skin: Negative for injury, rash, and discoloration. 10:24 Neuro: Positive for altered mental status, dizziness, gait disturbance, speech changes, Negative for syncope, visual changes. 10:24 All other systems are negative. Exam: 10:24 Neuro: Orientation: to person, Not oriented to place, time, situation, Mentation: slow jh7 to respond, Cerebellar function: not following commands, Gait: is unsteady. 10:50 Head/Face: Normocephalic, atraumatic. Eyes: Pupils equal round and reactive to light, jh7 extra-ocular motions intact. Lids and lashes normal. Conjunctiva and sclera are non-icteric and not injected. Cornea within normal limits. Periorbital areas with no swelling, redness, or edema. Neck: Trachea midline, no thyromegaly or masses palpated, and no cervical lymphadenopathy. Supple, full range of motion without nuchal rigidity, or vertebral point tenderness. No Meningismus. Cardiovascular: Regular rate and rhythm with a normal S1 and S2. No gallops, murmurs, or rubs. Normal PMI, no JVD. No pulse deficits. Respiratory: Lungs have equal breath sounds bilaterally, clear to auscultation and percussion. No rales, rhonchi or wheezes noted. No increased work of breathing, no retractions or nasal flaring. Abdomen/GI: Soft, non-tender, with normal bowel sounds. No distension or tympany. No guarding or rebound. No evidence of tenderness throughout. Back: No spinal tenderness. No costovertebral tenderness. Full range of motion. Skin: Warm, dry with normal turgor. Normal color with no rashes, no lesions, and no evidence of cellulitis. MS/ Extremity: Pulses equal, no cyanosis. Neurovascular intact. Full, normal range of motion. 10:50 Constitutional: The patient appears awake, anxious, lethargic. Vital Signs: 10:24 BP 191 / 86; Pulse 95; Resp 20; Temp 98.3(O); Pulse Ox 98% on R/A; Weight 77.11 kg; ld1 Height 5 ft. 3 in. ; Pain 0/10; 11:03 BP 147 / 112; Pulse 85; Resp 18; Pulse Ox 97% on R/A; ld1 11:42 BP 176 / 92; Pulse 80; Resp 18; Pulse Ox 97% on R/A; ld1 13:30 BP 160 / 79; Pulse 75; Resp 18; Pulse Ox 97% on R/A; ld1 15:08 BP 166 / 116; Pulse 80; Resp 18; Pulse Ox 97% on R/A; ld1 10:24 Body Mass Index 30.11 (77.11 kg, 160.02 cm) ld1 10:24 Pain Scale: Adult ld1 NIH Stroke Scale Scores: 10:24 NIHSS Score: 14 jh7 MDM: 10:11 Patient medically screened. [facility] 11:55 Differential Diagnosis: CVA, electrolyte abnormality, alcohol intoxication, [facility] hypoglycemia, intracranial bleed, overdose, pneumonia, seizure, sepsis, TIA, UTI, volume depletion. Data reviewed: vital signs, nurses notes, lab test result(s), EKG, radiologic studies, CT scan, plain films. Consideration of Admission/Observation Patient was admitted/placed on observation. Management of patient was discussed with the following: Hospitalist: UCHE Blank for Dr. Lloyd. I considered the following discharge prescriptions or medication management in the emergency department Medications were administered in the Emergency Department. See MAR. Independent interpretation of the following test(s) in the Emergency Department EKG: See my EKG interpretation above. Historians other than the Patient: Parent: mother. Care significantly affected by the following chronic conditions: Hypertension. Counseling: I had a detailed discussion with the patient and/or guardian regarding: the historical points, exam findings, and any diagnostic results supporting the discharge/admit diagnosis, the need for further work-up and treatment in the hospital. Response to treatment: There is no appreciated change of the patient's symptoms at this time, no change in mental status. ED course: Ruled out hyponatremia, drug use, hypoglycemia, and hemorrhagic stroke. Will admit the patient for altered mental status and intractable nausea and vomiting. The patient slightly improved after Ativan administration. MRI of the brain ordered.. 07/29 10:12 Order name: Basic Metabolic Panel; Complete Time: 11: [facility] 07/29 10:12 Order name: CBC with Diff; Complete Time: [facility] 07/29 10:12 Order name: LFT's; Complete Time: 11: [facility] 07/29 10:12 Order name: Magnesium; Complete Time: 11: [facility] 07/29 10:12 Order name: NT PRO-BNP; Complete Time: 11: [facility] 07/29 10:12 Order name: PT-INR; Complete Time: : [facility] 07/29 10:12 Order name: Troponin HS; Complete Time: : [facility] 07/29 10:12 Order name: Lactate w/ 2H reflex if indic.; Complete Time: 11: [facility] 07/29 10:12 Order name: Blood Culture Adult (2) [facility] 07/29 10:12 Order name: AMMONIA; Complete Time: 11:30 [facility] 07/29 10:12 Order name: UDS; Complete Time: 11:30 [facility] 07/29 10:12 Order name: Urinalysis W/Microscopic; Complete Time: 11:08 [facility] 07/29 10:27 Order name: Glucose, Ancillary Testing; Complete Time: 10:45 [facility] 07/29 10:55 Order name: Urine Osmolality; Complete Time: 13:08 [facility] 07/29 10:55 Order name: Urine Sodium Random; Complete Time: 11:30 [facility] 07/29 10:55 Order name: Osmolality, Serum; Complete Time: 13:08 [facility] 07/29 13:16 Order name: Magnesium [facility] 07/29 13:16 Order name: Phosphorus [facility] 07/29 13:16 Order name: T4 Free [facility] 07/29 13:16 Order name: Thyroid Stimulating Hormone [facility] 07/29 13:16 Order name: Urinalysis w/ reflexes [facility] 07/29 13:16 Order name: CBC with Automated Diff [facility] 07/29 13:16 Order name: CBC with Automated Diff [facility] 07/29 13:16 Order name: Comprehensive Metabolic Panel [facility] 07/29 13:16 Order name: Comprehensive Metabolic Panel [facility] 07/29 13:35 Order name: ETOH Level [facility] 07/29 13:35 Order name: Tylenol Level [facility] 07/29 13:35 Order name: Salicylate [facility] 07/29 14:45 Order name: Salicylates Level [facility] 07/29 14:46 Order name: Alcohol Serum/Plasma [facility] 07/29 14:55 Order name: Lactate Sepsis 2 HR Follow-up [facility] 07/29 14:59 Order name: Acetaminophen Level [facility] 07/29 10:12 Order name: XRAY Chest (1 view); Complete Time: 12:54 [facility] 07/29 10:12 Order name: CT Head Brain wo Cont; Complete Time: 10:52 [facility] 07/29 11:49 Order name: MRI - Brain Wo Cont; Complete Time: 13:45 [facility] 07/29 10:12 Order name: EKG; Complete Time: 10:13 [facility] 07/29 13:12 Order name: NPO [facility] 07/29 10:12 Order name: Cardiac monitoring; Complete Time: 10:13 [facility] 07/29 10:12 Order name: EKG - Nurse/Tech; Complete Time: 10:56 [facility] 07/29 10:12 Order name: IV Saline Lock; Complete Time: 10: [facility] 07/29 10:12 Order name: Labs collected and sent; Complete Time: 10: [facility] 07/29 10:12 Order name: O2 Per Protocol; Complete Time: 10: [facility] 07/29 10:12 Order name: O2 Sat Monitoring; Complete Time: [facility] 07/29 10:12 Order name: Fingerstick Glucose; Complete Time: 10:24 [facility] EC:50 Rate is 85 beats/min. Rhythm is regular. QRS [place] is Normal. CA interval is prolonged [facility] at 246 msec. QRS interval is normal at 96 msec. QT interval is normal at 376 msec. No Q waves. T waves are Normal. No ST changes noted. Clinical impression: 1st degree heart block. Administered Medications: 10:56 Drug: Promethazine IVP 12.5 mg Route: IVP; Site: right antecubital; aa5 11:16 Drug: Promethazine IVP 12.5 mg Route: IVP; Site: right antecubital; ld1 11:41 Drug: NS 0.9% IV 1000 ml Route: IV; Rate: 1 bolus; Site: right antecubital; ld1 11:41 Drug: Ativan IVP 1 mg Route: IVP; Site: right antecubital; ld1 14:26 Drug: Thiamine IV 100 mg Route: IV; Rate: 1 calculated rate; Site: right antecubital; ld1 Disposition Summary: 07/29/22 12:01 Hospitalization Ordered Hospitalization Status: Inpatient Admission [facility] Provider: Bridger Downing [facility] Location: Telemetry/MedSurg (Inpatient) [facility] Condition: Fair [facility] Problem: new [facility] Symptoms: are unchanged [facility] Bed/Room Type: Standard [facility] Room Assignment: 228(07/29/22 14:56) bd Diagnosis - Altered mental status, unspecified [facility] - Intractable nausea and vomiting [facility] Forms: - Medication Reconciliation Form [facility] - SBAR form [facility] NIH Stroke Scale - NIH Stroke Score Date: 07/29/2022 Time: 10:24 Total Score = 14 10. Dysarthria (speech clarity - read or repeat words) - 1(Mild to Moderate) 11. Extinction and Inattention (visual/tactile/auditory/spatial/personal) - 1(Present) 1a. Level of Consciousness (LOC) - 0(Alert) 1b. Level of Consciousness (LOC) (Month \T\ Age) - 2(Neither) 1c. LOC Commands (Open \T\ Closes Eyes/Child Center Assistant) - 0(Both) 2. Best Gaze (Lateral Gaze Paresis) - 1(Partial gaze palsy) 3. Visual Field Loss - 0(No visual loss) 4. Facial Palsy - 0(Normal) 5a. Left Arm: Motor (10-second hold) - 1(Drift) 5b. Right Arm: Motor (10-second hold) - 1(Drift) 6a. Left Leg: Motor (5-second hold - always test supine) - 3(No effort against gravity) 6b. Right Leg: Motor (5-second hold - always test supine) - 3(No effort against gravity) 7. Limb Ataxia (finger/nose \T\ heel/richards - test with eyes open) - 0(Absent) 8. Sensory Loss (pinprick arms/legs/face) - 0(Normal) 9. Best Language: Aphasia (description/naming/reading) - 1(Mild to moderate aphasia) Initials: [facility] Signatures: Dispatcher [employer] EDMS Tiffani Madera Audri RN RN aa5 Maritza Singh RN RN ld1 Viridiana Peters, LEATHER BELT LOOP CUTTER LEATHER BELT LOOP CUTTER 7 Corrections: (The following items were deleted from the chart) 11:52 10:24 Constitutional: This is a well developed, well nourished patient who is jh7 awake, alert, and in no acute distress. Head/Face: Normocephalic, atraumatic. Eyes: Pupils equal round and reactive to light, extra-ocular motions intact. Lids and lashes normal. Conjunctiva and sclera are non-icteric and not injected. Cornea within normal limits. Periorbital areas with no swelling, redness, or edema. Cardiovascular: Regular rate and rhythm with a normal S1 and S2. No gallops, murmurs, or rubs. Normal PMI, no JVD. No pulse deficits. Respiratory: Lungs have equal breath sounds bilaterally, clear to auscultation and percussion. No rales, rhonchi or wheezes noted. No increased work of breathing, no retractions or nasal flaring. Abdomen/GI: Soft, non-tender, with normal bowel sounds. No distension or tympany. No guarding or rebound. No evidence of tenderness throughout. Back: No spinal tenderness. No costovertebral tenderness. Full range of motion. Skin: Warm, dry with normal turgor. Normal color with no rashes, no lesions, and no evidence of cellulitis. [facility] 14:07 12:01 [facility] 14:56 14:[address] [place] [address]
--- NOTE | 2022-07-29 12:06 | RAD REPORT ---
EXAM DESCRIPTION: RAD - Chest Single View - 07/29/2022 11:26 am CLINICAL HISTORY: MALAISE Chest pain. COMPARISON: Chest Single View dated 07/28/2022; Chest Single View dated 07/01/2022; Chest Single View dated 06/30/2022; Abdomen Acute Series dated 05/05/2022 FINDINGS: Portable technique limits examination quality. The lungs are emphysematous but grossly clear. The heart is normal in size. No displaced fractures. IMPRESSION: No acute intrathoracic process suspected.
[2022-07-29] MEDS ORDERED: ACETAMINOPHEN 650MG/RECT SUPP PR PRN (13:10)
[2022-07-29] MEDS ORDERED: ONDANSETRON 4 MG/2 ML VIAL IV PRN (13:13)
[2022-07-29] MEDS ORDERED: GLUCAGON 1 MG/VIAL IM PRN (13:14)
[2022-07-29] MEDS: INSULIN -REGULAR HUMAN 50 UNIT/0.5 ML ML SQ SCH ×2 (13:15→17:15)
--- NOTE | 2022-07-29 13:16 | P.HP ---
Certification for Inpatient Patient admitted to: Inpatient With expected LOS: >2 Midnights Patient will require the following post-hospital care: None Practitioner: I am a practitioner with admitting privileges, knowledge of patient current condition, hospital course, and medical plan of care. Services: Services provided to patient in accordance with Admission requirements found in Title 42 Section 412.3 of the Code of Federal Regulations Patient History Date of Service: 07/29/22 Reason for admission: Altered mental status and difficulty walking. History of Present Illness: Patient is a 61-year-old female with a past medical history significant for hypertension, anxiety disorder, depression, HLD, hypothyroidism, DM2, nicotine dependence, seizure disorder who presents with complaint of confusion and inability to walk onset this morning. Patient was discharged from the hospital early this am. Patient indicated that when she got home she went to bed and when she woke up this morning she started having episodes of confusion and difficulty walking. Patient reported associated signs and symptoms of dizziness, shortness of breath, headache, nausea, vomiting, generalized body pains and generalized malaise. Patient denies any other signs or symptoms. Symptoms are aggravated or relieved by nothing. Patient decided to present to the hospital for medical evaluation. Allergies hydrochlorothiazide Allergy (Verified 07/01/22 00:10) Unknown Home Medications: Levothyroxine Sodium [Synthroid] 137 mcg PO [id number] 03/10/21 Risperidone [Risperdal] 2 mg PO BID 03/10/21 cloNIDine HCL [Catapres*] 0.3 mg PO Q8H 03/10/21 clonazePAM [Klonopin*] 1 mg PO TIDP PRN 03/10/21 ondansetron HCL [Zofran] 4 mg PO Q8HP PRN 03/10/21 Venlafaxine HCl [Effexor] 100 mg PO TIDWM 12/27/21 Zolpidem Tartrate [Ambien] 10 mg PO BEDTIME 07/03/22 Losartan Potassium [Cozaar*] 50 mg PO DAILY 30 Days #30 tab 07/04/22 Dicyclomine [Bentyl*] 20 mg PO Q4HR PRN 07/29/22 OXcarbazepine [Trileptal] 1,200 mg PO BEDTIME 07/29/22 OXcarbazepine [Trileptal] 600 mg PO DAILY 07/29/22 Promethazine HCl 25 mg PO Q6HR PRN 07/29/22 Venlafaxine HCl [Effexor] 100 mg PO TID 07/29/22 - Past Medical/Surgical History Diabetic: No -: Hepatitis -: Anxiety -: HTN -: Hypothyroidism -: Alcoholic induced seizures -: NIDDM -: Thyroidectomy -: Plastic surgery breast -: hernia repair Psychosocial/ Personal History: Patient lives at home with her mother - Family History Mother -: Hypertension, Diabetes, Cancer Notes: Thyroid, Knee replacement Father -: Heart disease, Hypertension, Diabetes - Social History Smoking Status: Current every day smoker Counseled patient to stop smoking for: less than 10 minutes Smoking therapy provided: Yes Patient receptive to therapy: No Alcohol use: Yes CD- Drugs: No Caffeine use: No Place of Residence: Home Review of Systems General: Malaise, Other (Generalized body pains) Eyes: Unremarkable ENT: Unremarkable Respiratory: Shortness of Breath Cardiovascular: Unremarkable Gastrointestinal: Nausea, Vomiting Genitourinary: Unremarkable Musculoskeletal: Unremarkable Integumentary: Unremarkable Neurological: Incoordination, Other (Dizziness, headache, difficulty walking) Physical Examination - Physical Exam General: Alert, In no apparent distress, Oriented x2, Confused HEENT: Atraumatic, PERRLA, Mucous membr. moist/pink, EOMI, Sclerae nonicteric Neck: Supple, 2+ carotid pulse no bruit, No LAD, Without JVD or thyroid abnormality Respiratory: Clear to auscultation bilaterally, Normal air movement Cardiovascular: No edema, Regular rate/rhythm, Normal S1 S2 Capillary refill: <2 Seconds Gastrointestinal: Normal bowel sounds, Non-distended, No tenderness Musculoskeletal: No clubbing, No swelling, No tenderness Integumentary: No rashes, No breakdown Neurological: Normal speech, Normal tone, Normal affect Lymphatics: No axilla or inguinal lymphadenopathy - Studies Laboratory Data (last 24 hrs) 07/29/22 10:10: PT 9.4 L, INR 0.85 07/29/22 10:10: WBC 11.90 H, Hgb 12.2 D, Hct 37.0, Plt Count 393 D 07/29/22 10:10: Sodium 134 L D, Potassium 3.8, BUN 18, Creatinine 0.57, Glucose 156 H, Magnesium 1.9, Total Bilirubin 0.2, AST 20, ALT 45, Alkaline Phosphatase 143 H D Assessment and Plan - Plan --Acute metabolic continue supportive care. Encephalopathy. MRI brain indicates Subtle T2/FLAIR signal abnormalities involving the mamillary bodies and periaqueductal sloan matter. Please correlate clinically for evidence of thiamine deficiency. No other acute intracranial process. Thiamine levels ordered and pending. --Abnormality of gait and mobility. MRI unremarkable for any acute intracranial abnormality. PT eval and treat. --Anxiety disorder\depression. Continue home medication. --DM2. BS monitoring with sliding scale insulin. --Nicotine dependence. Patient counseled on tobacco cessation. Refuses nicotine patch. -- Hyperlipidemia. Continue home medication. --Hypertension. Poorly controlled. Continue home medications and hydralazine as needed. --Hypokalemia. Replete as needed. --- Hypothyroidism. Continue Synthroid -- Headache. Tylenol as needed. --Nausea and vomiting. Antiemetics on board. Continue supportive care. --History of seizures. Continue home medication. Seizure precautions. -- DVT prophylaxis with Lovenox subQ Discharge Plan: Home Plan to discharge in: Greater than 2 days - Advance Directives Does patient have a Living Will: Yes Does patient have a Durable POA for Healthcare: No - Code Status/Comfort Care Code Status Assessed: Yes Physician Review: Patient Assessed, Agree with Above Assessment and Plan Critical Care: No
[2022-07-29] MEDS ORDERED: D10W 250 ML BAG IV PRN (13:17)
[2022-07-29] MEDS ORDERED: ONDANSETRON 4 MG/2 ML VIAL ONE (13:34)
--- NOTE | 2022-07-29 13:38 | RAD REPORT ---
EXAM DESCRIPTION: MRI - Brain Wo Cont - 07/29/2022 1:19 pm CLINICAL HISTORY: Confused;Declining state COMPARISON: MRI brain 08/29/2019. Head CT of earlier the same day at 10:26 a.m. TECHNIQUE: Multiplanar multisequence MRI of the brain performed without IV contrast. FINDINGS: Motion artifact somewhat limits evaluation. No evidence of acute infarct or other diffusion signal abnormality. No evidence of acute intracranial hemorrhage or abnormal extra-axial fluid collections. Mild diffuse parenchymal volume loss. Ventricular caliber otherwise within normal for age. Midline st ructures are unremarkable. Allowing for the degree of motion artifact present, there is suggestion of mildly increased T2 signal along the mamillary bodies and periaqueductal sloan matter. Please see axial FLAIR series 7 images 10 -12. No mass effect or midline shift. Major vascular flow voids are preserved. Mastoid air cells and paranasal sinuses are clear. IMPRESSION: Subtle T2/FLAIR signal abnormalities involving the mamillary bodies and periaqueductal g ray matter. Please correlate clinically for evidence of thiamine deficiency. No other acute intracranial process, within limits of motion artifact. The findings were communicated to Viridiana Wilson on 07/29/2022 at 13:34 hours.
[2022-07-29] MEDS ORDERED: ENOXAPARIN 40 MG/0.4 ML SQ SCH (14:00)
[2022-07-29] MEDS ORDERED: MORPHINE 4 MG/ML SYR IV PRN (14:03)
[2022-07-29] MEDS ORDERED: THIAMINE 200 MG/2 ML INJ ONE (14:08)
[2022-07-29] MEDS ORDERED: MORPHINE 4 MG/ML SYR ONE (14:11)
[2022-07-29] MEDS ORDERED: PANTOPRAZOLE 40 MG INJ IVP ONE (14:41)
[2022-07-29] MEDS ORDERED: SODIUM CHLORIDE 0.9% 10ML INJ IV PRN (14:41)
[2022-07-29 15:08] LABS: Magnesium 1.6 mg/dL (1.6-2.4); Phosphorus 2.3 mg/dL (2.5-4.9); Thyroid Stimulating Hormone 2.92 uIU/mL (0.358-3.740)
[2022-07-29 15:22] VITALS: O2SAT 97
[2022-07-29 15:25] VITALS: BMI 30.1
[2022-07-29] MEDS ORDERED: LABETALOL 20 MG/4ML SYRINGE IV ONE (15:32)
[2022-07-29 16:18] VITALS: BP 216/104
[2022-07-29 17:23] VITALS: TEMP 98
--- NOTE | 2022-07-30 04:56 | EKG ---
Test Date: 2022-07-29 Test Time: 10:50:14 Web Services Architect: Messi MARTIN MEASUREMENT RESULTS: Intervals: Rate: 85 MT: 246 QRSD: 96 QT: 376 QTc: 447 [place]: P: 35 MT: 246 QRS: 73 T: 36 INTERPRETIVE STATEMENTS: Sinus rhythm with 1st degree AV block Possible Left atrial enlargement Incomplete right bundle branch block Borderline ECG Compared to ECG 07/28/2022 07:41:42 First degree AV block now present Incomplete right bundle-branch block now present Myocardial infarct finding no longer present Electronically Signed On 07-30-22 04:54:05 CDT by Daniel Cespedes
== END 2022-07-29 18:02 | disposition left against medical advice (07) | DRG 72 ==
LOC: ER 10:03 → ERHOLD 13:09 → 2ND 14:53
PROVIDERS: ADMIT Internal Medicine Nephrology; ATTEND Internal Medicine Nephrology
DX: G93.41 Metabolic encephalopathy (principal); E11.9 Type 2 diabetes mellitus without complications; E03.9 Hypothyroidism, unspecified; I10 Essential (primary) hypertension; E78.5 Hyperlipidemia, unspecified; F41.9 Anxiety disorder, unspecified; F32.A Depression, unspecified; E87.6 Hypokalemia; F17.210 Nicotine dependence, cigarettes, uncomplicated; Z88.8 Allergy status to other drugs, medicaments and biological substances; Z79.890 Hormone replacement therapy; Z79.899 Other long term (current) drug therapy
CPT/HCPCS: 36415; 51702; 70450; 70551; 71045; 80048; 80076; 80307; 81001; 82140; 82947; 83605; 83735; 83880; 83930; 83935; 84100; 84300; 84425; 84439; 84443; 84484; 85025; 85610; 87040; 93005; 96374; 96375; 99285; G0480; J1650; J2405; J2550; J3411; J7030

== ENCOUNTER 2022-07-30 09:41 | Emergency (ER) | payer OTHER ==
--- OUTSIDE RECORDS SUMMARY | 2022-07-30 09:54 | XMS REPORT | Continuity of Care Document ---
:1960 Author Organization [facility] t Address [address] [place] [address] [place] [id number] Care Team Providers Name Role Phone Sharpless Primary Care Physician MATT SIMPSON Attending Clinician Unavailable MATT SIMPSON Attending Clinician Unavailable Doctor Unassigned, [place] Attending Clinician Unavailable WALLY KRISHNAMURTHY Attending Clinician Unavailable Natacha Brewster Attending Clinician Payers Payer Name Policy Type Policy Number Effective Date Expiration Date Sarina castelan [facility] [id number] 2017 00:00:00 PLUS Problems This patient has [...] r Alcohol intake 2016-05-01 2016-05-01 Current [facility] es 00:00:00 00:00:00 non-drinker of Medical nter alcohol (finding) Sex Assigned At [birth year] [facility] 00:00:00 00:00:00 [facility] Smoking Status Start Date Stop Date Source Smokes tobacco daily 2016-05-01 00:00:00 [facility] Medications Ordered Filled Start Stop Current Ordering [...] capsule 00:00: 00 OXcarbazepi 2017-0 Yes 600mg Q.[id number] Take [address] [facility] [address] ne 2-23 [id number] mg by Yasir (TRILEPTAL) 10:23: 3D mouth 3 Med ical 600 [facility] 59 (three) Center tablet times daily. PARoxetine 2017-0 Yes 40mg QD Take [address] (PAXIL) 40 2-23 [facility] 10:23: nightly. [address] 2017-0 Yes 600mg Q.[id number] Take [address] ne 2-23 [id number] [facility] (TRILE[facility]AL) 10:23: 3D mouth 3 Med ical 600 MG 59 (three) Center tablet times daily. PARoxetine 2017-0 Yes 40mg QD Take [address] (PAXIL) 40 2-23 [facility] 10:23: nightly. [address] 2017-0 Yes 600mg Q.[id number] Take [address] ne 2-23 [id number] [facility] by [facility] (TRILEPTAL) 10:23: 3D mouth 3 Med ical 600 MG 59 (three) Center tablet times daily. PARoxetine 2017-0 Yes 40mg QD Take [address] (PAXIL) 40 2-23 [facility] 10:23: nightly. [address] 2017-0 Yes 600mg Q.[id number] Take [address] ne 2-23 [id number] [facility] by [facility] (TRILEPTAL) 10:23: 3D mouth 3 Med ical 600 MG 59 (three) Center tablet times daily. PARoxetine 2017-0 Yes 40mg QD Take [address] (PAXIL) 40 2-23 [facility] 10:23: nightly. [address] 2017-0 Yes 600mg Q.[id number] Take [address] ne 2-23 [id number] [facility] by [facility] (TRILEPTAL) 10:23: 3D mouth 3 Med ical 600 MG 59 (three) Center tablet times daily. PARoxetine 2017-0 Yes 40mg QD Take [address] (PAXIL) 40 2-23 [facility] 10:23: nightly. [address] OXcarbazepi 2017-0 Yes 600mg Q.[id number] Take [address] ne 2-23 [id number] mg by [facility] (TRILEPTAL) 10:23: 3D mouth 3 Med ical 600 MG 59 (three) Center tablet times daily. PARoxetine 2017-0 Yes 40mg QD Take [address] (PAXIL) 40 2-23 [facility] tablet 10:23: nightly. [address] 2017-0 Yes 600mg Q.[id number] Take [address] ne 2-23 [id number] mg by [facility] (TRILEPTAL) 10:23: 3D mouth 3 Med ical 600 MG 59 (three) Center tablet times daily. PARoxetine 2017-0 Yes 40mg QD Take [address] (PAXIL) 40 2-23 [facility] tablet 10:23: nightly. [address] 2017-0 Yes 600mg Q.[id number] Take [address] ne 2-23 [id number] mg by [facility] (TRILEPTAL) 10:23: 3D mouth 3 Med ical 600 MG 59 (three) Center tablet times daily. PARoxetine 2017-0 Yes 40mg QD Take [address] (PAXIL) 40 2-23 [facility] tablet 10:23: nightly. [address] 2017-0 Yes 600mg Q.[id number] Take [address] ne 2-23 [id number] [facility] by [facility] (TRILEPTAL) 10:23: 3D mouth 3 Med ical 600 MG 59 (three) Center tablet times daily. PARoxetine 2017-0 Yes 40mg QD Take [address] (PAXIL) 40 2-23 [facility] tablet 10:23: nightly. [address] OXcarbazepi 2017-0 Yes 600mg Q.[id number] Take [address] ne 2-23 [id number] [facility] by [facility] (TRILEPTAL) 10:23: 3D mouth 3 Med ical 600 MG 59 (three) Center tablet times daily. PARoxetine 2017-0 Yes 40mg QD Take [address] (PAXIL) 40 2-23 by [facility] tablet 10:23: nightly. [address] OXcarbazepi 2017-0 Yes 600mg Q.[id number] Take [address] ne 2-23 [id number] mg by [facility] (TRILEPTAL) 10:23: 3D mouth 3 Med ical 600 MG 59 (three) Center tablet times daily. PARoxetine 2017-0 Yes 40mg QD Take [address] (PAXIL) 40 2-23 [facility] tablet 10:23: nightly. [address] OXcarbazepi 2017-0 Yes 600mg Q.[id number] Take [address] ne 2-23 [id number] mg by [facility] (TRILEPTAL) 10:23: 3D mouth 3 Med ical 600 MG 59 (three) Center tablet times daily. PARoxetine 2017-0 Yes 40mg QD Take [address] (PAXIL) 40 2-23 [facility] tablet 10:23: nightly. [address] OXcarbazepi 2017-0 Yes 600mg Q.[id number] Take [address] ne 2-23 [id number] mg by [facility] (TRILEPTAL) 10:23: 3D mouth 3 Med ical 600 MG 59 (three) Center tablet times daily. OXcarbazepi 2017-0 Yes 600mg Q.[id number] Take [address] ne 2-23 [id number] mg by [facility] (TRILEPTAL) 10:23: 3D mouth 3 Med ical 600 MG 59 (three) Center tablet times daily. PARoxetine 2017-0 Yes 40mg QD Take [address] (PAXIL) 40 2-23 [facility] 10:23: nightly. [address] OXcarbazepi 2017-0 Yes 600mg Q.[id number] Take [address] ne 2-23 [id number] mg by [facility] (TRILEPTAL) 10:23: 3D mouth 3 Med ical 600 MG 59 (three) Center tablet times daily. PARoxetine 2017-0 Yes 40mg QD Take [address] (PAXIL) 40 2-23 [facility] tablet 10:23: nightly. [address] OXcarbazepi 2017-0 Yes 600mg Q.[id number] Take [address] ne 2-23 [id number] mg by [facility] (TRILEPTAL) 10:23: 3D mouth 3 Med ical 600 MG 59 (three) Center tablet times daily. PARoxetine 2017-0 Yes 40mg QD Take [address] (PAXIL) 40 2-23 by [facility] tablet 10:23: nightly. [address] PARoxetine 2017-0 Yes 40mg QD Take [address] (PAXIL) 40 2-23 [facility] tablet 10:23: nightly. [facility] [address] [place] OXcarbazepi 2017-0 Yes 600mg Q.[id number] Take [address] ne 2-23 [id number] mg by [facility] (TRILEPTAL) 10:23: 3D mouth 3 Med ical 600 MG 59 (three) Center tablet times daily. PARoxetine 2017-0 Yes 40mg QD Take [address] (PAXIL) 40 2-23 by [facility] tablet 10:23: nightly. [facility] [address] [place] OXcarbazepi 2017-0 Yes 600mg Q.[id number] Take [address] ne 2-23 [id number] mg by [facility] (TRILEPTAL) 10:23: 3D mouth 3 Med ical 600 MG 59 (three) Center tablet times daily. PARoxetine 2017-0 Yes 40mg QD Take [address] (PAXIL) 40 2-23 by [facility] tablet 10:23: nightly. [facility] 600[facility] Q.[id number] Take [address] ne 2-23 [id number] mg by [facility] (TRILEPTAL) 10:23: 3D mouth 3 Med ical 600 MG 59 (three) Center tablet times daily. PARoxetine 2017-0 Yes 40mg QD Take [address] (PAXIL) 40 2-23 by [facility] tablet 10:23: nightly. [address] OXcarbazepi 2017-0 Yes 600mg Q.[id number] Take [address] ne 2-23 [id number] mg by [facility] (TRILEPTAL) 10:23: 3D mouth 3 Med ical 600 MG 59 (three) Center tablet times daily. PARoxetine 2017-0 Yes 40mg QD Take [address] (PAXIL) 40 2-23 by [facility] tablet 10:23: nightly. [facility] [address] [place] OXcarbazepi 2017-0 Yes 600mg Q.[id number] Take [address] ne 2-23 [id number] mg by [facility] (TRILEPTAL) 10:23: 3D mouth 3 Med ical 600 MG 59 (three) Center tablet times daily. PARoxetine 2017-0 Yes 40mg QD Take [address] (PAXIL) 40 2-23 by [facility] tablet 10:23: nightly. [facility] [address] [place] OXcarbazepi 2017-0 Yes 600mg Q.[id number] Take [address] ne 2-23 [id number] mg by [facility] (TRILEPTAL) 10:23: 3D mouth 3 Med ical 600 MG 59 (three) Center tablet times daily. PARoxetine 2017-0 Yes 40mg QD Take [address] (PAXIL) 40 2-23 by mouth [facility] tablet 10:23: nightly. [facility] [address] [place] OXcarbazepi 2017-0 Yes 600mg Q.[id number] Take [address] ne 2-23 [id number] mg by [facility] (TRILEPTAL) 10:23: 3D mouth 3 Med ical 600 MG 59 (three) Center tablet times daily. PARoxetine 2017-0 Yes 40mg QD Take [address] (PAXIL) 40 2-23 by mouth [facility] tablet 10:23: nightly. [facility] [address] [place] OXcarbazepi 2017-0 Yes 600mg Q.[id number] Take [address] ne 2-23 [id number] mg by [facility] (TRILEPTAL) 10:23: 3D mouth 3 Med ical 600 MG 59 (three) Center tablet times daily. OXcarbazepi 2017-0 Yes 600mg Q.[id number] Take [address] ne 2-23 [id number] mg by [facility] (TRILEPTAL) 10:23: 3D mouth 3 Med ical 600 MG 59 (three) Center tablet times daily. PARoxetine 2017-0 Yes 40mg QD Take [address] (PAXIL) 40 2-23 by mouth [facility] tablet 10:23: nightly. [facility] [address] [place] OXcarbazepi 2017-0 Yes 600mg Q.[id number] Take [address] ne 2-23 [id number] mg by [facility] (TRILEPTAL) 10:23: 3D mouth 3 Med ical 600 MG 59 (three) Center tablet times daily. PARoxetine 2017-0 Yes 40mg QD Take [address] (PAXIL) 40 2-23 by mouth [facility] tablet 10:23: nightly. [address] OXcarbazepi 2017-0 Yes 600mg Q.[id number] Take [address] ne 2-23 [id number] mg by [facility] (TRILEPTAL) 10:23: 3D mouth 3 Med ical 600 MG 59 (three) Center tablet times daily. PARoxetine 2017-0 Yes 40mg QD Take [address] (PAXIL) 40 2-23 by mouth [facility] tablet 10:23: nightly. [address] OXcarbazepi 2017-0 Yes 600mg Q.[id number] Take [address] ne 2-23 [id number] mg by [facility] (TRILEPTAL) 10:23: 3D mouth 3 Med ical 600 MG 59 (three) Center tablet times daily. PARoxetine 2017-0 Yes 40mg QD Take [address] (PAXIL) 40 2-23 by mouth [facility] tablet 10:23: nightly. [address] PARoxetine 2017-0 Yes 40mg QD Take [address] (PAXIL) 40 2-23 by mouth [facility] tablet 10:23: nightly. [address] OXcarbazepi 2017-0 Yes 600mg Q.[id number] Take [address] ne 2-23 [id number] mg by [facility] (TRILEPTAL) 10:23: 3D mouth 3 Med ical 600 MG 59 (three) Center tablet times daily. PARoxetine 2017-0 Yes 40mg QD Take [address] (PAXIL) 40 2-23 by mouth [facility] tablet 10:23: nightly. [address] OXcarbazepi 2017-0 Yes 600mg Q.[id number] Take [address] ne 2-23 [id number] mg by [facility] (TRILEPTAL) 10:23: 3D mouth 3 Med ical 600 MG 59 (three) Center tablet times daily. PARoxetine 2017-0 Yes 40mg QD Take [address] (PAXIL) 40 2-23 by mouth [facility] tablet 10:23: nightly. [address] OXcarbazepi 2017-0 Yes 600mg Q.[id number] Take [address] ne 2-23 [id number] mg by [facility] (TRILEPTAL) 10:23: 3D mouth 3 Med ical 600 MG 59 (three) Center tablet times daily. PARoxetine 2017-0 Yes 40mg QD Take [address] (PAXIL) 40 2-23 by mouth [facility] tablet 10:23: nightly. [facility] [address] [place] OXcarbazepi 2017-0 Yes 600mg Q.[id number] Take [address] ne 2-23 [id number] mg by [facility] (TRILEPTAL) 10:23: 3D mouth 3 Med ical 600 MG 59 (three) Center tablet times daily. PARoxetine 2017-0 Yes 40mg QD Take [address] (PAXIL) 40 2-23 by mouth [facility] tablet 10:23: nightly. [facility] [address] [place] OXcarbazepi 2017-0 Yes 600mg Q.[id number] Take [address] ne 2-23 [id number] mg by [facility] (TRILEPTAL) 10:23: 3D mouth 3 Med ical 600 MG 59 (three) Center tablet times daily. PARoxetine 2017-0 Yes 40mg QD Take [address] (PAXIL) 40 2-23 by mouth [facility] tablet 10:23: nightly. [facility] [address] [place] OXcarbazepi 2017-0 Yes 600mg Q.[id number] Take [address] ne 2-23 [id number] mg by [facility] (TRILEPTAL) 10:23: 3D mouth 3 Med ical 600 MG 59 (three) Center tablet times daily. PARoxetine 2017-0 Yes 40mg QD Take [address] (PAXIL) 40 2-23 by mouth [facility] tablet 10:23: nightly. [facility] [address] [place] OXcarbazepi 2017-0 Yes 600mg Q.[id number] Take [address] ne 2-23 [id number] mg by [facility] (TRILEPTAL) 10:23: 3D mouth 3 Med ical 600 MG 59 (three) Center tablet times daily. PARoxetine 2017-0 Yes 40mg QD Take [address] (PAXIL) 40 2-23 by mouth [facility] tablet 10:23: nightly. [facility] [address] [place] OXcarbazepi 2017-0 Yes 600mg Q.[id number] Take [address] ne 2-23 [id number] mg by [facility] (TRILEPTAL) 10:23: 3D mouth 3 Med ical 600 MG 59 (three) Center tablet times daily. OXcarbazepi 2017-0 Yes 600mg Q.[id number] Take [address] ne 2-23 [id number] mg by [facility] (TRILEPTAL) 10:23: 3D mouth 3 Med ical 600 MG 59 (three) Center tablet times daily. PARoxetine 2017-0 Yes 40mg QD Take [address] (PAXIL) 40 2-23 by mouth [facility] tablet 10:23: nightly. [facility] [address] [place] OXcarbazepi 2017-0 Yes 600mg Q.[id number] Take [address] ne 2-23 [id number] mg by [facility] (TRILEPTAL) 10:23: 3D mouth 3 Med ical 600 MG 59 (three) Center tablet times daily. PARoxetine 2017-0 Yes 40mg QD Take [address] (PAXIL) 40 2-23 by mouth [facility] tablet 10:23: nightly. [facility] [address] [place] OXcarbazepi 2017-0 Yes 600mg Q.[id number] Take [address] ne 2-23 [id number] mg by [facility] (TRILEPTAL) 10:23: 3D mouth 3 Med ical 600 MG 59 (three) Center tablet times daily. PARoxetine 2017-0 Yes 40mg QD Take [address] (PAXIL) 40 2-23 by mouth [facility] tablet 10:23: nightly. [facility] [address] [place] PARoxetine 2017-0 Yes 40mg QD Take [address] (PAXIL) 40 2-23 by mouth [facility] tablet 10:23: nightly. [facility] [address] [place] OXcarbazepi 2017-0 Yes 600mg Q.[id number] Take [address] ne 2-23 [id number] mg by [facility] (TRILEPTAL) 10:23: 3D mouth 3 Med ical 600 MG 59 (three) Center tablet times daily. PARoxetine 2017-0 Yes 40mg QD Take [address] (PAXIL) 40 2-23 by mouth [facility] tablet 10:23: nightly. [facility] [address] [place] OXcarbazepi 2017-0 Yes 600mg Q.[id number] Take [address] ne 2-23 [id number] mg by [facility] (TRILEPTAL) 10:23: 3D mouth [...] Goal Plan of Care Note [code = 42908-7] Goal Plan of Care Note [code = 51828-6] Goal Plan of Care Note [code = 82090-9] Goal Plan of Care Note [code = 01563-2] Goal Plan of Care Note [code = 29220-6] Goal Plan of Care Note [code = 09544-3] Goal Plan of Care Note [code = 11977-5] Goal Plan of Care Note [code = 25744-1] Goal Plan of Care Note [code = 93298-1] Goal Plan of Care Note [code = 44183-0] Goal Plan of Care Note [code = 91560-9] Goal Plan of Care Note [code = 16603-0] Goal Plan of Care Note [code = 92530-2] Goal Plan of Care Note [code = 95666-3] Goal Plan of Care Note [code = 11339-3] Goal Plan of Care Note [code = 50814-5] Goal Plan of Care Note [code = 77943-4] Goal Plan of Care Note [code = 46608-0] Goal Plan of Care Note [code = 29852-1] Goal Plan of Care Note [code = 94888-7] Goal Plan of Care Note [code = 07733-4] Goal Plan of Care Note [code = 31796-6] Goal Plan of Care Note [code = 13110-3] Goal Plan of Care Note [code = 08841-2] Goal Plan of Care Note [code = 84688-0] Goal Plan of Care Note [code = 17007-0] Goal Plan of Care Note [code = 13705-0] Goal Plan of Care Note [code = 71408-4] Goal Plan of Care Note [code = 34799-7] Goal Plan of Care Note [code = 44779-7] Goal Plan of Care Note [code = 97624-4] Goal Plan of Care Note [code = 83979-2] Goal Plan of Care Note [code = 22319-4] Goal Plan of Care Note [code = 66127-0] Goal Plan of Care Note [code = 46438-1] Goal Plan of Care Note [code = 67912-0] Goal Plan of Care Note [code = 32831-0] Goal Plan of Care Note [code = 53617-8] Goal Plan of Care Note [code = 58724-2] Goal Plan of Care Note [code = 34124-1] Goal Plan of Care Note [code = 68098-8] Goal Plan of Care Note [code = 89492-2] Goal Plan of Care Note [code = 93947-9] Goal Plan of Care Note [code = 16898-7] Goal Plan of Care Note [code = 27770-6] Goal Plan of Care Note [code = 55724-5] Goal Plan of Care Note [code = 91798-3] Goal Plan of Care Note [code = 30039-9] Goal Plan of Care Note [code = 21888-5] Goal Plan of Care Note [code = 77571-0] Goal Plan of Care Note [code = 55373-9] Goal Plan of Care Note [code = 85855-9] Goal Plan of Care Note [code = 65047-7] Goal Plan of Care Note [code = 72198-9] Goal Plan of Care Note [code = 36951-8] Goal Plan of Care Note [code = 70432-0] Goal Plan of Care Note [code = 51065-0] Goal Plan of Care Note [code = 26448-5] Goal Plan of Care Note [code = 91286-1] Goal Plan of Care Note [code = 83708-9] Goal Plan of Care Note [code = 47812-0] Goal Plan of Care Note [code = 32978-9] Goal Plan of Care Note [code = 54809-2] Goal Plan of Care Note [code = 40873-0] Goal Plan of Care Note [code = 86567-9] Goal Plan of Care Note [code = 22958-7] Goal Plan of Care Note [code = 36512-8] Goal Plan of Care Note [code = 72269-7] Goal Plan of Care Note [code = 15037-8] Goal Plan of Care Note [code = 69201-1] Goal Plan of Care Note [code = 04833-8] Goal Plan of Care Note [code = 95024-9] Goal Plan of Care Note [code = 39555-1] Goal Plan of Care Note [code = 92592-0] Goal Plan of Care Note [code = 57870-0] Goal Plan of Care Note [code = 95031-6] Goal Plan of Care Note [code = 07102-5] Goal Plan of Care Note [code = 36201-9] Goal Plan of Care Note [code = 27331-9] Goal Plan of Care Note [code = 80049-4] Goal Plan of Care Note [code = 30673-3] Goal Plan of Care Note [code = 27316-9] Goal Plan of Care Note [code = 60203-1] Goal Plan of Care Note [code = 20654-6] Goal Plan of Care Note [code = 69629-9] Goal Plan of Care Note [code = 77802-0] Goal Plan of Care Note [code = 63775-9] Goal Plan of Care Note [code = 17478-7] Goal Plan of Care Note [code = 60137-4] Goal Plan of Care Note [code = 83306-4] Goal Plan of Care Note [code = 21604-1] Goal Plan of Care Note [code = 65641-6] Goal Plan of Care Note [code = 11608-2] Goal Plan of Care Note [code = 13717-3] Goal Plan of Care Note [code = 80739-1] Goal Plan of Care Note [code = 19238-5] Goal Plan of Care Note [code = 58909-5] Goal Plan of Care Note [code = 50868-7] Goal Plan of Care Note [code = 25845-3] Goal Plan of Care Note [code = 50009-6] Goal Plan of Care Note [code = 27806-3] Goal Plan of Care Note [code = 62316-4] Goal Plan of Care Note [code = 60013-9] Goal Plan of Care Note [code = 48039-2] Goal Plan of Care Note [code = 00089-5] Goal Plan of Care Note [code = 65273-4] Goal Plan of Care Note [code = 87455-4] Goal Plan of Care Note [code = 34688-9] Goal Plan of Care Note [code = 66231-8] Goal Plan of Care Note [code = 86116-0] Goal Plan of Care Note [code = 37636-9] Goal Plan of Care Note [code = 02019-5] Goal Plan of Care Note [code = 38168-1] Goal Plan of Care Note [code = 08680-1] Goal Plan of Care Note [code = 70237-1] Goal Plan of Care Note [code = 13259-4] Goal Plan of Care Note [code = 80192-1] Goal Plan of Care Note [code = 67091-3] Goal Plan of Care Note [code = 89480-7] Goal Plan of Care Note [code = 24737-5] Goal Plan of Care Note [code = 16977-2] Goal Plan of Care Note [code = 00466-1] Goal Plan of Care Note [code = 76330-8] Goal Plan of Care Note [code = 91540-1] Goal Plan of Care Note [code = 01262-3] Goal Plan of Care Note [code = 19112-3] Goal Plan of Care Note [code = 23753-3] Goal Plan of Care Note [code = 31226-1] Goal Plan of Care Note [code = 13369-7] Goal Plan of Care Note [code = 45702-6] Goal Plan of Care Note [code = 08464-6] Goal Plan of Care Note [code = 78214-1] Goal Plan of Care Note [code = 03414-2] Goal Plan of Care Note [code = 57732-4] Goal Plan of Care Note [code = 43430-1] Goal Plan of Care Note [code = 85424-1] Goal Plan of Care Note [code = 39101-1] Goal Plan of Care Note [code = 48296-2] Goal Plan of Care Note [code = 98820-6] Goal Plan of Care Note [code = 89173-6] Goal Plan of Care Note [code = 02309-6] Goal Plan of Care Note [code = 25014-7] Goal Plan of Care Note [code = 09820-9] Goal Plan of Care Note [code = 98095-7] Goal Plan of Care Note [code = 67798-0] Goal Plan of Care Note [code = 21300-8] Goal Plan of Care Note [code = 60473-4] Goal Plan of Care Note [code = 55442-8] Goal Plan of Care Note [code = 89934-8] Goal Plan of Care Note [code = 44323-7] Goal Plan of Care Note [code = 79259-4] Goal Plan of Care Note [code = 53955-1] Goal Plan of Care Note [code = 21064-6] Goal Plan of Care Note [code = 13626-2] Goal Plan of Care Note [code = 89092-7] Goal Plan of Care Note [code = 86708-3] Goal Plan of Care Note [code = 26205-8] Goal Plan of Care Note [code = 64486-4] Goal Plan of Care Note [code = 70674-7] Goal Plan of Care Note [code = 10272-9] Goal Plan of Care Note [code = 16054-7] Goal Plan of Care Note [code = 18898-3] Goal Plan of Care Note [code = 34072-8] Goal Plan of Care Note [code = 46074-4] Goal Plan of Care Note [code = 22493-1] Goal Plan of Care Note [code = 10161-5] Goal Plan of Care Note [code = 43721-4] Goal Plan of Care Note [code = 42177-6] Goal Plan of Care Note [code = 11307-9] Goal Plan of Care Note [code = 83911-2] Goal Plan of Care Note [code = 87596-1] Goal Plan of Care Note [code = 99734-8] Goal Plan of Care Note [code = 08091-2] Goal Plan of Care Note [code = 99608-3] Goal Plan of Care Note [code = 66611-3] Goal Plan of Care Note [code = 32866-5] Goal Plan of Care Note [code = 15099-7] Goal Plan of Care Note [code = 62235-2] Goal Plan of Care Note [code = 27291-0] Goal Plan of Care Note [code = 90611-6] Goal Plan of Care Note [code = 55891-6] Goal Plan of Care Note [code = 79569-9] Goal Plan of Care Note [code = 79148-1] Goal Plan of Care Note [code = 44805-8] Goal Plan of Care Note [code = 99238-6] Goal Plan of Care Note [code = 71213-2] Goal Plan of Care Note [code = 45777-9] Goal Plan of Care Note [code = 01490-1] Goal Plan of Care Note [code = 94903-2] Goal Plan of Care Note [code = 27895-1] Goal Plan of Care Note [code = 23789-0] Goal Plan of Care Note [code = 78551-8] Goal Plan of Care Note [code = 19662-8] Goal Plan of Care Note [code = 16965-6] Goal Plan of Care Note [code = 52733-4] Goal Plan of Care Note [code = 45679-6] Goal Plan of Care Note [code = 39101-2] Goal Plan of Care Note [code = 48007-4] Goal Plan of Care Note [code = 07654-0] Goal Plan of Care Note [code = 39168-7] Goal Plan of Care Note [code = 63311-1] Goal Plan of Care Note [code = 06238-2] Goal Plan of Care Note [code = 77531-0] Goal Plan of Care Note [code = 45110-3] Goal Plan of Care Note [code = 49662-7] Goal Plan of Care Note [code = 37262-0] Goal Plan of Care Note [code = 03598-5] Goal Plan of Care Note [code = 38578-8] Encounters Start End Encounter Admission Attending Care Care Encounter Source Date/Time Date/Time Type Type Clinicians Facility Department ID 2021-06-01 Outpatient [facility] [place] [id number] [place] 01:36:29 [id number] [facility] 2022-05-24 2022-05-24 Outpatient [facility] SFA [id number] Cristian 10:36:59 10:36:59 0318 F Jerman 2022-02-11 2022-02-11 Outpatient [facility] SFA [id number] Cristian 09:04:48 09:04:48 1206 F Jerman 2022-02-10 2022-02-10 Outpatient [facility] SFA [id number] Cristian 09:29:34 09:29:34 1205 F Jerman 2022-02-10 2022-02-10 Outpatient [id number] 00:00:00 00:00:00 Visit 4089-4cab 089-4cab-9 -2dr1-b7k [id number] 2022-01-10 2022-01-10 Outpatient [facility] SFA [id number] Cristian 09:16:14 09:16:14 1104 F Jerman 2022-01-10 2022-01-10 Outpatient [id number] 00:00:00 00:00:00 Visit aca9-4c83 ca9-4c83-a -q8at-yl0 7eb-[id number] 2021-12-19 2021-12-19 Outpatient SFA SFA [id number] Shannon Foster 16:11:31 16:11:31 1013 F Jerman 2021-12-19 2021-12-19 Outpatient [id number] 00:00:00 00:00:00 Visit [id number] -adae-62b amelia-62bace vlgzb51zb fd81af 2021-09-17 2021-09-17 Outpatient dsj9zlhr- [id number]-[id number] 00:00:00 00:00:00 Visit [id number] 35a-4f50-b -s57q-c3c [id number] 2020-08-03 2020-08-03 Outpatient MATT VÁSQUEZ [facility] [id number] [facility] 10:00:00 10:00:00 MATT SIMPSON [facility] 2020-07-25 2020-07-25 Orders Doctor ABE [id number] 00:00:00 00:00:00 Only Unassigned, BK 350.1.13.[address] [facility] [id number] 2019-09-26 2019-09-26 Outpatient Bertin KRISHNAMURTHY [facility] [id number] Univers 16:00:00 16:00:00 WALLY [facility] 2018-10-21 2018-10-21 [facility] [id number] 00:00:00 00:00:00 Natacha Nguyen [id number] Ade 4.2.7.2.686 Professio [id number] [facility] 204 [facility] Results Test Description Test Time Test Comments Results Result Comments Source [facility] 2022-05-26 02:57:49 Test Item Value Reference Range Interpretation Comme nts TSH, THIRD GENERATION (test code = 2821) 6.350 UIU/ML 0.400-4.100 H LIPID [id number] 01:09:34 Test Item Value Reference Range Interpretation [...] MOREINFORMATION , SEE CLIENT ANNOUNCE MENT AT [email or web address] RISK RATIO LDL/HDL 2.73 RATIO <3.22 [facility] has important (test code = 2238) pathology staff changes effecti ve 05/07/2022. New pathology staff will provide uninter rupted, excellent patie nt care and clinical consultation. S ee URL: [email or web address]. UNLES S OTHERWISE INDIC ATED, ALL TESTING PER FORMED AT [facility] [employer] [facility], [facility]. [address] [place] [id number] LABOR ATORY DIRECTOR: Andrew WHITLEY CONNOR NUMBER [id number] CAP ACCREDITATION N O. [id number] HEMOGLOBIN [id number] 03:17:24 Test Item Value Reference Range Interpretation Comments HEMOGLOBIN A1c (test 6.4 % 4.2-5.6 H AMERIC AN DIABETES code = 37649) ASSOCIATION [employer] FOR HGB A1C: PREDIABETES/INC REASED [...] TESTING OR LABORATORY C ONSULTATION. TSH, THIRD [id number] 05:15:49 Test Item Value Reference Range Interpretation Comments TSH, THIRD GENERATION (test code 2.080 UIU/ML 0.400-4.100 = 2821) HEMOGLOBIN [id number] 03:46:00 Test Item Value Reference Range Interpretation Comments HEMOGLOBIN A1c (test 6.6 % 4.2-5.6 H AMERIC AN DIABETES code = 33855) ASSOCIATION [employer] FOR HGB A1C: PREDIABETES/INC REASED [...] INDICATED, ALL TESTING PER FORMED ATCLINICAL PATH [facility], [facility]. [address] [place] [address] LABORATORY DIRE CTOR: DIANA RUSS M.D. CLIA NUMBER [id number] [facility] [place]. [id number] LIPID [id number] 02:59:52 Test Item Value Reference Range Interpretation [...] , SEE CLIENT ANNOUNCE MENT AT [email or web address] RISK RATIO LDL/HDL 4.02 RATIO <3.22 H (test code = 2238) [id number] 00:00:00 Test Item Value Reference Range Interpretation Comments TSH, THIRD GENERATION (test code 2.080 UIU/ML = 2821) [id number] 00:00:00 Test Item Value Reference Range Interpretation Comments TSH, THIRD GENERATION (test code 2.080 UIU/ML = 2821) [id number] 00:00:00 Test Item Value Reference Range Interpretation Comments TSH, THIRD GENERATION (test code 2.080 UIU/ML = 2821) LIPID [id number] 00:00:00 Test Item Value Reference Range Interpretation Comments CHOLESTEROL (test code = 2210) 292 MG/DL TRIGLYCERIDES (test code = 2232) 184 MG/DL HDL CHOLESTEROL (test code = 2220) 51 MG/DL CALC LDL CHOL (test code = 2237) 205 MG/DL RISK RATIO LDL/HDL (test code = 4.02 RATIO 2238) LIPID [id number] 00:00:00 Test Item Value Reference Range Interpretation Comments CHOLESTEROL (test code = 2210) 292 MG/DL TRIGLYCERIDES (test code = 2232) 184 MG/DL HDL CHOLESTEROL (test code = 2220) 51 MG/DL CALC LDL CHOL (test code = 2237) 205 MG/DL RISK RATIO LDL/HDL (test code = 4.02 RATIO 2238) HEMOGLOBIN [id number] 00:00:00 Test Item Value Reference Range Interpretation Comments HEMOGLOBIN A1c (test code = 13206) 6.6 % HEMOGLOBIN [id number] 00:00:00 Test Item Value Reference Range Interpretation Comments HEMOGLOBIN A1c (test code = 99601) 6.6 % HEMOGLOBIN [id number] 00:00:00 Test Item Value Reference Range Interpretation Comments HEMOGLOBIN A1c (test code = 88000) 6.6 % [id number] 00:00:00 Test Item Value Reference Range Interpretation Comments TSH, THIRD GENERATION (test code 2.080 UIU/ML = 2821) [id number] 00:00:00 Test Item Value Reference Range Interpretation Comments TSH, THIRD GENERATION (test code 2.080 UIU/ML = 2821) [id number] 00:00:00 Test Item Value Reference Range Interpretation Comments TSH, THIRD GENERATION (test code 2.080 UIU/ML = 2821) LIPID [id number] 00:00:00 Test Item Value Reference Range Interpretation Comments CHOLESTEROL (test code = 2210) 292 MG/DL TRIGLYCERIDES (test code = 2232) 184 MG/DL HDL CHOLESTEROL (test code = 2220) 51 MG/DL CALC LDL CHOL (test code = 2237) 205 MG/DL RISK RATIO LDL/HDL (test code = 4.02 RATIO 2238) LIPID [id number] 00:00:00 Test Item Value Reference Range Interpretation Comments CHOLESTEROL (test code = 2210) 292 MG/DL TRIGLYCERIDES (test code = 2232) 184 MG/DL HDL CHOLESTEROL (test code = 2220) 51 MG/DL CALC LDL CHOL (test code = 2237) 205 MG/DL RISK RATIO LDL/HDL (test code = 4.02 RATIO 2238) HEMOGLOBIN [id number] 00:00:00 Test Item Value Reference Range Interpretation Comments HEMOGLOBIN A1c (test code = 48966) 6.6 % HEMOGLOBIN [id number] 00:00:00 Test Item Value Reference Range Interpretation Comments HEMOGLOBIN A1c (test code = 39172) 6.6 % HEMOGLOBIN [id number] 00:00:00 Test Item Value Reference Range Interpretation Comments HEMOGLOBIN A1c (test code = 68122) 6.6 % [id number] 00:00:00 Test Item Value Reference Range Interpretation Comments TSH, THIRD GENERATION (test code 2.080 UIU/ML = 2821) [id number] 00:00:00 Test Item Value Reference Range Interpretation Comments TSH, THIRD GENERATION (test code 2.080 UIU/ML = 2821) LIPID [id number] 00:00:00 Test Item Value Reference Range Interpretation Comments CHOLESTEROL (test code = 2210) 292 MG/DL TRIGLYCERIDES (test code = 2232) 184 MG/DL HDL CHOLESTEROL (test code = 2220) 51 MG/DL CALC LDL CHOL (test code = 2237) 205 MG/DL RISK RATIO LDL/HDL (test code = 4.02 RATIO 2238) HEMOGLOBIN [id number] 00:00:00 Test Item Value Reference Range Interpretation Comments HEMOGLOBIN A1c (test code = 09408) 6.6 % HEMOGLOBIN [id number] 00:00:00 Test Item Value Reference Range Interpretation Comments HEMOGLOBIN A1c (test code = 59868) 6.6 % [id number] 00:00:00 Test Item Value Reference Range Interpretation Comments TSH, THIRD GENERATION (test code 2.080 UIU/ML = 2821) [id number] 00:00:00 Test Item Value Reference Range Interpretation Comments TSH, THIRD GENERATION (test code 2.080 UIU/ML = 2821) [id number] 00:00:00 Test Item Value Reference Range Interpretation Comments TSH, THIRD GENERATION (test code 2.080 UIU/ML = 2821) LIPID [id number] 00:00:00 Test Item Value Reference Range Interpretation Comments CHOLESTEROL (test code = 2210) 292 MG/DL TRIGLYCERIDES (test code = 2232) 184 MG/DL HDL CHOLESTEROL (test code = 2220) 51 MG/DL CALC LDL CHOL (test code = 2237) 205 MG/DL RISK RATIO LDL/HDL (test code = 4.02 RATIO 2238) LIPID [id number] 00:00:00 Test Item Value Reference Range Interpretation Comments CHOLESTEROL (test code = 2210) 292 MG/DL TRIGLYCERIDES (test code = 2232) 184 MG/DL HDL CHOLESTEROL (test code = 2220) 51 MG/DL CALC LDL CHOL (test code = 2237) 205 MG/DL RISK RATIO LDL/HDL (test code = 4.02 RATIO 2238) HEMOGLOBIN [id number] 00:00:00 Test Item Value Reference Range Interpretation Comments HEMOGLOBIN A1c (test code = 71599) 6.6 % HEMOGLOBIN [id number] 00:00:00 Test Item Value Reference Range Interpretation Comments HEMOGLOBIN A1c (test code = 55701) 6.6 % HEMOGLOBIN [id number] 00:00:00 Test Item Value Reference Range Interpretation Comments HEMOGLOBIN A1c (test code = 11532) 6.6 % HEMOGLOBIN [id number] 00:00:00 Test Item Value Reference Range Interpretation Comments HEMOGLOBIN A1c (test code = 72139) 6.8 % HEMOGLOBIN [id number] 00:00:00 Test Item Value Reference Range Interpretation Comments HEMOGLOBIN A1c (test code = 21175) 6.8 % HEMOGLOBIN [id number] 00:00:00 Test Item Value Reference Range Interpretation Comments HEMOGLOBIN A1c (test code = 21500) 6.8 % LIPID [id number] 00:00:00 Test Item Value Reference Range Interpretation Comments CHOLESTEROL (test code = 2210) 303 MG/DL TRIGLYCERIDES (test code = 2232) 191 MG/DL HDL CHOLESTEROL (test code = 2220) 61 MG/DL CALC LDL CHOL (test code = 2237) 205 MG/DL RISK RATIO LDL/HDL (test code = 3.36 RATIO 2238) LIPID [id number] 00:00:00 Test Item Value Reference Range Interpretation Comments CHOLESTEROL (test code = 2210) 303 MG/DL TRIGLYCERIDES (test code = 2232) 191 MG/DL HDL CHOLESTEROL (test code = 2220) 61 MG/DL CALC LDL CHOL (test code = 2237) 205 MG/DL RISK RATIO LDL/HDL (test code = 3.36 RATIO 2238) [id number] 00:00:00 Test Item Value Reference Range Interpretation Comments TSH, THIRD GENERATION (test code 0.769 UIU/ML = 2821) [id number] 00:00:00 Test Item Value Reference Range Interpretation Comments TSH, THIRD GENERATION (test code 0.769 UIU/ML = 2821) [id number] 00:00:00 Test Item Value Reference Range Interpretation Comments TSH, THIRD GENERATION (test code 0.769 UIU/ML = 2821) COMPREHENSIVE METABOLIC [id number] 00:00:00 Test Item Value Reference Range Interpretation Comments GLUCOSE (test code = 2217) 131 MG/DL BUN (test code = 2208) 13 MG/DL CREATININE (test code = 2214) 0.65 MG/DL eGFR AMER. (test code 113 ML/MIN/1.73 = 91599) eGFR NON- AMER. (test 97 ML/MIN/1.73 code = 87556) CALC BUN/CREAT (test code = 20 RATIO [...] code = 2219) 23 U/L COMPREHENSIVE METABOLIC [id number] 00:00:00 Test Item Value Reference Range Interpretation Comments GLUCOSE (test code = 2217) 131 MG/DL BUN (test code = 2208) 13 MG/DL CREATININE (test code = 2214) 0.65 MG/DL eGFR AMER. (test code 113 ML/MIN/1.73 = 10476) eGFR NON- AMER. (test 97 ML/MIN/1.73 code = 78573) CALC BUN/CREAT (test code = 20 RATIO [...] (test code = 2219) 23 U/L HEMOGLOBIN [id number] 00:00:00 Test Item Value Reference Range Interpretation Comments HEMOGLOBIN A1c (test code = 77743) 6.8 % HEMOGLOBIN [id number] 00:00:00 Test Item Value Reference Range Interpretation Comments HEMOGLOBIN A1c (test code = 41291) 6.8 % HEMOGLOBIN [id number] 00:00:00 Test Item Value Reference Range Interpretation Comments HEMOGLOBIN A1c (test code = 39246) 6.8 % LIPID [id number] 00:00:00 Test Item Value Reference Range Interpretation Comments CHOLESTEROL (test code = 2210) 303 MG/DL TRIGLYCERIDES (test code = 2232) 191 MG/DL HDL CHOLESTEROL (test code = 2220) 61 MG/DL CALC LDL CHOL (test code = 2237) 205 MG/DL RISK RATIO LDL/HDL (test code = 3.36 RATIO 2238) LIPID [id number] 00:00:00 Test Item Value Reference Range Interpretation Comments CHOLESTEROL (test code = 2210) 303 MG/DL TRIGLYCERIDES (test code = 2232) 191 MG/DL HDL CHOLESTEROL (test code = 2220) 61 MG/DL CALC LDL CHOL (test code = 2237) 205 MG/DL RISK RATIO LDL/HDL (test code = 3.36 RATIO 2238) [id number] 00:00:00 Test Item Value Reference Range Interpretation Comments TSH, THIRD GENERATION (test code 0.769 UIU/ML = 2821) [id number] 00:00:00 Test Item Value Reference Range Interpretation Comments TSH, THIRD GENERATION (test code 0.769 UIU/ML = 2821) [id number] 00:00:00 Test Item Value Reference Range Interpretation Comments TSH, THIRD GENERATION (test code 0.769 UIU/ML = 2821) COMPREHENSIVE METABOLIC [id number] 00:00:00 Test Item Value Reference Range Interpretation Comments GLUCOSE (test code = 2217) 131 MG/DL BUN (test code = 2208) 13 MG/DL CREATININE (test code = 2214) 0.65 MG/DL eGFR AMER. (test code 113 ML/MIN/1.73 = 85913) eGFR NON- AMER. (test 97 ML/MIN/1.73 code = 17156) CALC BUN/CREAT (test code = 20 RATIO [...] code = 2219) 23 U/L COMPREHENSIVE METABOLIC [id number] 00:00:00 Test Item Value Reference Range Interpretation Comments GLUCOSE (test code = 2217) 131 MG/DL BUN (test code = 2208) 13 MG/DL CREATININE (test code = 2214) 0.65 MG/DL eGFR AMER. (test code 113 ML/MIN/1.73 = 61148) eGFR NON- AMER. (test 97 ML/MIN/1.73 code = 14184) CALC BUN/CREAT (test code = 20 RATIO [...] (test code = 2219) 23 U/L HEMOGLOBIN [id number] 00:00:00 Test Item Value Reference Range Interpretation Comments HEMOGLOBIN A1c (test code = 93192) 6.8 % HEMOGLOBIN [id number] 00:00:00 Test Item Value Reference Range Interpretation Comments HEMOGLOBIN A1c (test code = 73633) 6.8 % LIPID [id number] 00:00:00 Test Item Value Reference Range Interpretation Comments CHOLESTEROL (test code = 2210) 303 MG/DL TRIGLYCERIDES (test code = 2232) 191 MG/DL HDL CHOLESTEROL (test code = 2220) 61 MG/DL CALC LDL CHOL (test code = 2237) 205 MG/DL RISK RATIO LDL/HDL (test code = 3.36 RATIO 2238) [id number] 00:00:00 Test Item Value Reference Range Interpretation Comments TSH, THIRD GENERATION (test code 0.769 UIU/ML = 2821) [id number] 00:00:00 Test Item Value Reference Range Interpretation Comments TSH, THIRD GENERATION (test code 0.769 UIU/ML = 2821) COMPREHENSIVE METABOLIC [id number] 00:00:00 Test Item Value Reference Range Interpretation Comments GLUCOSE (test code = 2217) 131 MG/DL BUN (test code = 2208) 13 MG/DL CREATININE (test code = 2214) 0.65 MG/DL eGFR AMER. (test code 113 ML/MIN/1.73 = 54817) eGFR NON- AMER. (test 97 ML/MIN/1.73 code = 36101) CALC BUN/CREAT (test code = 20 RATIO [...] (test code = 2219) 23 U/L HEMOGLOBIN [id number] 00:00:00 Test Item Value Reference Range Interpretation Comments HEMOGLOBIN A1c (test code = 23889) 6.8 % HEMOGLOBIN [id number] 00:00:00 Test Item Value Reference Range Interpretation Comments HEMOGLOBIN A1c (test code = 17964) 6.8 % HEMOGLOBIN [id number] 00:00:00 Test Item Value Reference Range Interpretation Comments HEMOGLOBIN A1c (test code = 82681) 6.8 % LIPID [id number] 00:00:00 Test Item Value Reference Range Interpretation Comments CHOLESTEROL (test code = 2210) 303 MG/DL TRIGLYCERIDES (test code = 2232) 191 MG/DL HDL CHOLESTEROL (test code = 2220) 61 MG/DL CALC LDL CHOL (test code = 2237) 205 MG/DL RISK RATIO LDL/HDL (test code = 3.36 RATIO 2238) LIPID [id number] 00:00:00 Test Item Value Reference Range Interpretation Comments CHOLESTEROL (test code = 2210) 303 MG/DL TRIGLYCERIDES (test code = 2232) 191 MG/DL HDL CHOLESTEROL (test code = 2220) 61 MG/DL CALC LDL CHOL (test code = 2237) 205 MG/DL RISK RATIO LDL/HDL (test code = 3.36 RATIO 2238) [id number] 00:00:00 Test Item Value Reference Range Interpretation Comments TSH, THIRD GENERATION (test code 0.769 UIU/ML = 2821) [id number] 00:00:00 Test Item Value Reference Range Interpretation Comments TSH, THIRD GENERATION (test code 0.769 UIU/ML = 2821) [id number] 00:00:00 Test Item Value Reference Range Interpretation Comments TSH, THIRD GENERATION (test code 0.769 UIU/ML = 2821) COMPREHENSIVE METABOLIC [id number] 00:00:00 Test Item Value Reference Range Interpretation Comments GLUCOSE (test code = 2217) 131 MG/DL BUN (test code = 2208) 13 MG/DL CREATININE (test code = 2214) 0.65 MG/DL eGFR AMER. (test code 113 ML/MIN/1.73 = 56719) eGFR NON- AMER. (test 97 ML/MIN/1.73 code = 52715) CALC BUN/CREAT (test code = 20 RATIO [...] code = 2219) 23 U/L COMPREHENSIVE METABOLIC [id number] 00:00:00 Test Item Value Reference Range Interpretation Comments GLUCOSE (test code = 2217) 131 MG/DL BUN (test code = 2208) 13 MG/DL CREATININE (test code = 2214) 0.65 MG/DL eGFR AMER. (test code 113 ML/MIN/1.73 = 00970) eGFR NON- AMER. (test 97 ML/MIN/1.73 code = 77772) CALC BUN/CREAT (test code = 20 RATIO [...] (test code = 2219) 23 U/L HEMOGLOBIN [id number] 00:00:00 Test Item Value Reference Range Interpretation Comments HEMOGLOBIN A1c (test code = 89365) 6.6 % HEMOGLOBIN [id number] 00:00:00 Test Item Value Reference Range Interpretation Comments HEMOGLOBIN A1c (test code = 16450) 6.6 % HEMOGLOBIN [id number] 00:00:00 Test Item Value Reference Range Interpretation Comments HEMOGLOBIN A1c (test code = 90032) 6.6 % LIPID [id number] 00:00:00 Test Item Value Reference Range Interpretation Comments CHOLESTEROL (test code = 2210) 261 MG/DL TRIGLYCERIDES (test code = 2232) 159 MG/DL HDL CHOLESTEROL (test code = 2220) 82 MG/DL CALC LDL CHOL (test code = 2237) 150 MG/DL RISK RATIO LDL/HDL (test code = 1.83 RATIO 2238) LIPID [id number] 00:00:00 Test Item Value Reference Range Interpretation Comments CHOLESTEROL (test code = 2210) 261 MG/DL TRIGLYCERIDES (test code = 2232) 159 MG/DL HDL CHOLESTEROL (test code = 2220) 82 MG/DL CALC LDL CHOL (test code = 2237) 150 MG/DL RISK RATIO LDL/HDL (test code = 1.83 RATIO 2238) COMPREHENSIVE METABOLIC [id number] 00:00:00 Test Item Value Reference Range Interpretation Comments GLUCOSE (test code = 2217) 144 MG/DL BUN (test code = 2208) 15 MG/DL CREATININE (test code = 2214) 0.85 MG/DL eGFR AMER. (test code 87 ML/MIN/1.73 = 45557) eGFR NON- AMER. (test 75 ML/MIN/1.73 code = 30923) CALC BUN/CREAT (test code = 18 RATIO [...] code = 2219) 50 U/L COMPREHENSIVE METABOLIC [id number] 00:00:00 Test Item Value Reference Range Interpretation Comments GLUCOSE (test code = 2217) 144 MG/DL BUN (test code = 2208) 15 MG/DL CREATININE (test code = 2214) 0.85 MG/DL eGFR AMER. (test code 87 ML/MIN/1.73 = 96203) eGFR NON- AMER. (test 75 ML/MIN/1.73 code = 41528) CALC BUN/CREAT (test code = 18 RATIO [...] THYROX. BIND. CAPAC. (test code 1.1 = 09826) T4 (THYROXINE) (test code = 4.3 UG/DL 2819) CORRECTED T4 (FTI) (test code = 3.9 UG/DL 2820) TSH, THIRD GENERATION (test 18.900 UIU/ML code = 2821) THYROID II PROFILE (T3U, T4, T7, TSH)[id number] 00:00:00 Test Item Value Reference Range Interpretation Comments T-UPTAKE (test code = 2817) 30.2 % THYROX. BIND. CAPAC. (test code 1.1 = 90777) T4 (THYROXINE) (test code = 4.3 UG/DL 2819) CORRECTED T4 (FTI) (test code = 3.9 UG/DL 2820) TSH, THIRD GENERATION (test 18.900 UIU/ML code = 2821) HEMOGLOBIN [id number] 00:00:00 Test Item Value Reference Range Interpretation Comments HEMOGLOBIN A1c (test code = 88398) 6.6 % HEMOGLOBIN [id number] 00:00:00 Test Item Value Reference Range Interpretation Comments HEMOGLOBIN A1c (test code = 41447) 6.6 % HEMOGLOBIN [id number] 00:00:00 Test Item Value Reference Range Interpretation Comments HEMOGLOBIN A1c (test code = 74814) 6.6 % LIPID [id number] 00:00:00 Test Item Value Reference Range Interpretation Comments CHOLESTEROL (test code = 2210) 261 MG/DL TRIGLYCERIDES (test code = 2232) 159 MG/DL HDL CHOLESTEROL (test code = 2220) 82 MG/DL CALC LDL CHOL (test code = 2237) 150 MG/DL RISK RATIO LDL/HDL (test code = 1.83 RATIO 2238) LIPID [id number] 00:00:00 Test Item Value Reference Range Interpretation Comments CHOLESTEROL (test code = 2210) 261 MG/DL TRIGLYCERIDES (test code = 2232) 159 MG/DL HDL CHOLESTEROL (test code = 2220) 82 MG/DL CALC LDL CHOL (test code = 2237) 150 MG/DL RISK RATIO LDL/HDL (test code = 1.83 RATIO 2238) COMPREHENSIVE METABOLIC [id number] 00:00:00 Test Item Value Reference Range Interpretation Comments GLUCOSE (test code = 2217) 144 MG/DL BUN (test code = 2208) 15 MG/DL CREATININE (test code = 2214) 0.85 MG/DL eGFR AMER. (test code 87 ML/MIN/1.73 = 89302) eGFR NON- AMER. (test 75 ML/MIN/1.73 code = 17679) CALC BUN/CREAT (test code = 18 RATIO [...] code = 2219) 50 U/L COMPREHENSIVE METABOLIC [id number] 00:00:00 Test Item Value Reference Range Interpretation Comments GLUCOSE (test code = 2217) 144 MG/DL BUN (test code = 2208) 15 MG/DL CREATININE (test code = 2214) 0.85 MG/DL eGFR AMER. (test code 87 ML/MIN/1.73 = 16582) eGFR NON- AMER. (test 75 ML/MIN/1.73 code = 24395) CALC BUN/CREAT (test code = 18 RATIO [...] THYROX. BIND. CAPAC. (test code 1.1 = 85728) T4 (THYROXINE) (test code = 4.3 UG/DL 281) CORRECTED T4 (FTI) (test code = 3.9 UG/DL 2820) TSH, THIRD GENERATION (test 18.900 UIU/ML code = 2821) THYROID II PROFILE (T3U, T4, T7, TSH)2020-05-23 00:00:00 Test Item Value Reference Range Interpretation Comments T-UPTAKE (test code = 2816) 30.2 % THYROX. BIND. CAPAC. (test code 1.1 = 75779) T4 (THYROXINE) (test code = 4.3 UG/DL 2819) CORRECTED T4 (FTI) (test code = 3.9 UG/DL 2820) TSH, THIRD GENERATION (test 18.900 UIU/ML code = 2821) HEMOGLOBIN [id number] 00:00:00 Test Item Value Reference Range Interpretation Comments HEMOGLOBIN A1c (test code = 19514) 6.6 % HEMOGLOBIN [id number] 00:00:00 Test Item Value Reference Range Interpretation Comments HEMOGLOBIN A1c (test code = 86166) 6.6 % LIPID [id number] 00:00:00 Test Item Value Reference Range Interpretation Comments CHOLESTEROL (test code = 2210) 261 MG/DL TRIGLYCERIDES (test code = 2232) 159 MG/DL HDL CHOLESTEROL (test code = 2220) 82 MG/DL CALC LDL CHOL (test code = 2237) 150 MG/DL RISK RATIO LDL/HDL (test code = 1.83 RATIO 2238) COMPREHENSIVE METABOLIC [id number] 00:00:00 Test Item Value Reference Range Interpretation Comments GLUCOSE (test code = 2217) 144 MG/DL BUN (test code = 2208) 15 MG/DL CREATININE (test code = 2214) 0.85 MG/DL eGFR AMER. (test code 87 ML/MIN/1.73 = 97332) eGFR NON- AMER. (test 75 ML/MIN/1.73 code = 94797) CALC BUN/CREAT (test code = 18 RATIO [...] THYROX. BIND. CAPAC. (test code 1.1 = 29383) T4 (THYROXINE) (test code = 4.3 UG/DL 2819) CORRECTED T4 (FTI) (test code = 3.9 UG/DL 2820) TSH, THIRD GENERATION (test 18.900 UIU/ML code = 2821) HEMOGLOBIN [id number] 00:00:00 Test Item Value Reference Range Interpretation Comments HEMOGLOBIN A1c (test code = 42861) 6.6 % HEMOGLOBIN [id number] 00:00:00 Test Item Value Reference Range Interpretation Comments HEMOGLOBIN A1c (test code = 31705) 6.6 % HEMOGLOBIN [id number] 00:00:00 Test Item Value Reference Range Interpretation Comments HEMOGLOBIN A1c (test code = 18863) 6.6 % LIPID [id number] 00:00:00 Test Item Value Reference Range Interpretation Comments CHOLESTEROL (test code = 2210) 261 MG/DL TRIGLYCERIDES (test code = 2232) 159 MG/DL HDL CHOLESTEROL (test code = 2220) 82 MG/DL CALC LDL CHOL (test code = 2237) 150 MG/DL RISK RATIO LDL/HDL (test code = 1.83 RATIO 2238) LIPID [id number] 00:00:00 Test Item Value Reference Range Interpretation Comments CHOLESTEROL (test code = 2210) 261 MG/DL TRIGLYCERIDES (test code = 2232) 159 MG/DL HDL CHOLESTEROL (test code = 2220) 82 MG/DL CALC LDL CHOL (test code = 2237) 150 MG/DL RISK RATIO LDL/HDL (test code = 1.83 RATIO 2238) COMPREHENSIVE METABOLIC [id number] 00:00:00 Test Item Value Reference Range Interpretation Comments GLUCOSE (test code = 2217) 144 MG/DL BUN (test code = 2208) 15 MG/DL CREATININE (test code = 2214) 0.85 MG/DL eGFR AMER. (test code 87 ML/MIN/1.73 = 34292) eGFR NON- AMER. (test 75 ML/MIN/1.73 code = 65696) CALC BUN/CREAT (test code = 18 RATIO [...] code = 2219) 50 U/L COMPREHENSIVE METABOLIC [id number] 00:00:00 Test Item Value Reference Range Interpretation Comments GLUCOSE (test code = 2217) 144 MG/DL BUN (test code = 2208) 15 MG/DL CREATININE (test code = 2214) 0.85 MG/DL eGFR AMER. (test code 87 ML/MIN/1.73 = 23578) eGFR NON- AMER. (test 75 ML/MIN/1.73 code = 10086) CALC BUN/CREAT (test code = 18 RATIO [...] THYROX. BIND. CAPAC. (test code 1.1 = 00586) T4 (THYROXINE) (test code = 4.3 UG/DL 2819) CORRECTED T4 (FTI) (test code = 3.9 UG/DL 2820) TSH, THIRD GENERATION (test 18.900 UIU/ML code = 2821) THYROID II PROFILE (T3U, T4, T7, TSH)2020-05-23 00:00:00 Test Item Value Reference Range Interpretation Comments T-UPTAKE (test code = 2817) 30.2 % THYROX. BIND. CAPAC. (test code 1.1 = 13678) T4 (THYROXINE) (test code = 4.3 UG/DL 2819) CORRECTED T4 (FTI) (test code = 3.9 UG/DL 2820) TSH, THIRD GENERATION (test 18.900 UIU/ML code = 2821) HEMOGLOBIN [id number] 00:00:00 Test Item Value Reference Range Interpretation Comments HEMOGLOBIN A1c (test code = 63134) 6.7 % HEMOGLOBIN [id number] 00:00:00 Test Item Value Reference Range Interpretation Comments HEMOGLOBIN A1c (test code = 16351) 6.7 % HEMOGLOBIN [id number] 00:00:00 Test Item Value Reference Range Interpretation Comments HEMOGLOBIN A1c (test code = 26721) 6.7 % LIPID [id number] 00:00:00 Test Item Value Reference Range Interpretation Comments CHOLESTEROL (test code = 2210) 267 MG/DL TRIGLYCERIDES (test code = 2232) 137 MG/DL HDL CHOLESTEROL (test code = 2220) 48 MG/DL CALC LDL CHOL (test code = 2237) 192 MG/DL RISK RATIO LDL/HDL (test code = 4.00 RATIO 2238) LIPID [id number] 00:00:00 Test Item Value Reference Range Interpretation Comments CHOLESTEROL (test code = 2210) 267 MG/DL TRIGLYCERIDES (test code = 2232) 137 MG/DL HDL CHOLESTEROL (test code = 2220) 48 MG/DL CALC LDL CHOL (test code = 2237) 192 MG/DL RISK RATIO LDL/HDL (test code = 4.00 RATIO 2238) COMPREHENSIVE METABOLIC [id number] 00:00:00 Test Item Value Reference Range Interpretation Comments GLUCOSE (test code = 2217) 155 MG/DL BUN (test code = 2208) 14 MG/DL CREATININE (test code = 2214) 0.52 MG/DL eGFR AMER. (test code 122 ML/MIN/1.73 = 77558) eGFR NON- AMER. (test 105 ML/MIN/1.73 code = 33498) CALC BUN/CREAT (test code = 27 RATIO [...] code = 2219) 27 U/L COMPREHENSIVE METABOLIC [id number] 00:00:00 Test Item Value Reference Range Interpretation Comments GLUCOSE (test code = 2217) 155 MG/DL BUN (test code = 2208) 14 MG/DL CREATININE (test code = 2214) 0.52 MG/DL eGFR AMER. (test code 122 ML/MIN/1.73 = 65205) eGFR NON- AMER. (test 105 ML/MIN/1.73 code = 45673) CALC BUN/CREAT (test code = 27 RATIO [...] THYROX. BIND. CAPAC. (test code 1.0 = 42035) T4 (THYROXINE) (test code = 4.7 UG/DL 2819) CORRECTED T4 (FTI) (test code = 4.7 UG/DL 2820) TSH, THIRD GENERATION (test code 0.201 UIU/ML = 2821) THYROID II PROFILE (T3U, T4, T7, TSH)2019 00:00:00 Test Item Value Reference Range Interpretation Comments T-UPTAKE (test code = 7) 33.1 % THYROX. BIND. CAPAC. (test code 1.0 = 05104) T4 (THYROXINE) (test code = 4.7 UG/DL 2819) CORRECTED T4 (FTI) (test code = 4.7 UG/DL 2820) TSH, THIRD GENERATION (test code 0.201 UIU/ML = 2821) HEMOGLOBIN [id number] 00:00:00 Test Item Value Reference Range Interpretation Comments HEMOGLOBIN A1c (test code = 50274) 6.7 % HEMOGLOBIN [id number] 00:00:00 Test Item Value Reference Range Interpretation Comments HEMOGLOBIN A1c (test code = 30883) 6.7 % HEMOGLOBIN [id number] 00:00:00 Test Item Value Reference Range Interpretation Comments HEMOGLOBIN A1c (test code = 14083) 6.7 % LIPID [id number] 00:00:00 Test Item Value Reference Range Interpretation Comments CHOLESTEROL (test code = 2210) 267 MG/DL TRIGLYCERIDES (test code = 2232) 137 MG/DL HDL CHOLESTEROL (test code = 2220) 48 MG/DL CALC LDL CHOL (test code = 2237) 192 MG/DL RISK RATIO LDL/HDL (test code = 4.00 RATIO 2238) LIPID [id number] 00:00:00 Test Item Value Reference Range Interpretation Comments CHOLESTEROL (test code = 2210) 267 MG/DL TRIGLYCERIDES (test code = 2232) 137 MG/DL HDL CHOLESTEROL (test code = 2220) 48 MG/DL CALC LDL CHOL (test code = 2237) 192 MG/DL RISK RATIO LDL/HDL (test code = 4.00 RATIO 2238) COMPREHENSIVE METABOLIC [id number] 00:00:00 Test Item Value Reference Range Interpretation Comments GLUCOSE (test code = 2217) 155 MG/DL BUN (test code = 2208) 14 MG/DL CREATININE (test code = 2214) 0.52 MG/DL eGFR AMER. (test code 122 ML/MIN/1.73 = 65759) eGFR NON- AMER. (test 105 ML/MIN/1.73 code = 81905) CALC BUN/CREAT (test code = 27 RATIO [...] code = 2219) 27 U/L COMPREHENSIVE METABOLIC [id number] 00:00:00 Test Item Value Reference Range Interpretation Comments GLUCOSE (test code = 2217) 155 MG/DL BUN (test code = 2208) 14 MG/DL CREATININE (test code = 2214) 0.52 MG/DL eGFR AMER. (test code 122 ML/MIN/1.73 = 83736) eGFR NON- AMER. (test 105 ML/MIN/1.73 code = 83501) CALC BUN/CREAT (test code = 27 RATIO [...] THYROX. BIND. CAPAC. (test code 1.0 = 34624) T4 (THYROXINE) (test code = 4.7 UG/DL 2819) CORRECTED T4 (FTI) (test code = 4.7 UG/DL 2820) TSH, THIRD GENERATION (test code 0.201 UIU/ML = 2821) THYROID II PROFILE (T3U, T4, T7, TSH)2019 00:00:00 Test Item Value Reference Range Interpretation Comments T-UPTAKE (test code = 2816) 33.1 % THYROX. BIND. CAPAC. (test code 1.0 = 03814) T4 (THYROXINE) (test code = 4.7 UG/DL 2819) CORRECTED T4 (FTI) (test code = 4.7 UG/DL 2820) TSH, THIRD GENERATION (test code 0.201 UIU/ML = 2821) HEMOGLOBIN [id number] 00:00:00 Test Item Value Reference Range Interpretation Comments HEMOGLOBIN A1c (test code = 09767) 6.7 % HEMOGLOBIN [id number] 00:00:00 Test Item Value Reference Range Interpretation Comments HEMOGLOBIN A1c (test code = 35584) 6.7 % LIPID [id number] 00:00:00 Test Item Value Reference Range Interpretation Comments CHOLESTEROL (test code = 2210) 267 MG/DL TRIGLYCERIDES (test code = 2232) 137 MG/DL HDL CHOLESTEROL (test code = 2220) 48 MG/DL CALC LDL CHOL (test code = 2237) 192 MG/DL RISK RATIO LDL/HDL (test code = 4.00 RATIO 2238) COMPREHENSIVE METABOLIC [id number] 00:00:00 Test Item Value Reference Range Interpretation Comments GLUCOSE (test code = 2217) 155 MG/DL BUN (test code = 2208) 14 MG/DL CREATININE (test code = 2214) 0.52 MG/DL eGFR AMER. (test code 122 ML/MIN/1.73 = 40780) eGFR NON- AMER. (test 105 ML/MIN/1.73 code = 02991) CALC BUN/CREAT (test code = 27 RATIO 2235) SODIUM (test code = 223) 142 MEQ/L POTASSIUM (test code = 2228) [...] THYROX. BIND. CAPAC. (test code 1.0 = 22857) T4 (THYROXINE) (test code = 4.7 UG/DL 2819) CORRECTED T4 (FTI) (test code = 4.7 UG/DL 2820) TSH, THIRD GENERATION (test code 0.201 UIU/ML = 2821) HEMOGLOBIN [id number] 00:00:00 Test Item Value Reference Range Interpretation Comments HEMOGLOBIN A1c (test code = 55341) 6.7 % HEMOGLOBIN [id number] 00:00:00 Test Item Value Reference Range Interpretation Comments HEMOGLOBIN A1c (test code = 80709) 6.7 % HEMOGLOBIN [id number] 00:00:00 Test Item Value Reference Range Interpretation Comments HEMOGLOBIN A1c (test code = 19462) 6.7 % LIPID [id number] 00:00:00 Test Item Value Reference Range Interpretation Comments CHOLESTEROL (test code = 2210) 267 MG/DL TRIGLYCERIDES (test code = 2232) 137 MG/DL HDL CHOLESTEROL (test code = 2220) 48 MG/DL CALC LDL CHOL (test code = 2237) 192 MG/DL RISK RATIO LDL/HDL (test code = 4.00 RATIO 2238) LIPID [id number] 00:00:00 Test Item Value Reference Range Interpretation Comments CHOLESTEROL (test code = 2210) 267 MG/DL TRIGLYCERIDES (test code = 2232) 137 MG/DL HDL CHOLESTEROL (test code = 2220) 48 MG/DL CALC LDL CHOL (test code = 2237) 192 MG/DL RISK RATIO LDL/HDL (test code = 4.00 RATIO 2238) COMPREHENSIVE METABOLIC [id number] 00:00:00 Test Item Value Reference Range Interpretation Comments GLUCOSE (test code = 2217) 155 MG/DL BUN (test code = 2208) 14 MG/DL CREATININE (test code = 2214) 0.52 MG/DL eGFR AMER. (test code 122 ML/MIN/1.73 = 41700) eGFR NON- AMER. (test 105 ML/MIN/1.73 code = 12441) CALC BUN/CREAT (test code = 27 RATIO [...] code = 2219) 27 U/L COMPREHENSIVE METABOLIC [id number] 00:00:00 Test Item Value Reference Range Interpretation Comments GLUCOSE (test code = 2217) 155 MG/DL BUN (test code = 2208) 14 MG/DL CREATININE (test code = 2214) 0.52 MG/DL eGFR AMER. (test code 122 ML/MIN/1.73 = 60698) eGFR NON- AMER. (test 105 ML/MIN/1.73 code = 07166) CALC BUN/CREAT (test code = 27 RATIO [...] THYROX. BIND. CAPAC. (test code 1.0 = 77211) T4 (THYROXINE) (test code = 4.7 UG/DL 2819) CORRECTED T4 (FTI) (test code = 4.7 UG/DL 2820) TSH, THIRD GENERATION (test code 0.201 UIU/ML = 2821) THYROID II PROFILE (T3U, T4, T7, TSH)2019 00:00:00 Test Item Value Reference Range Interpretation Comments T-UPTAKE (test code = 281) 33.1 % THYROX. BIND. CAPAC. (test code 1.0 = 12533) T4 (THYROXINE) (test code = 4.7 UG/DL 2819) CORRECTED T4 (FTI) (test code = 4.7 UG/DL 2820) TSH, THIRD GENERATION (test code 0.201 UIU/ML = 2821) SARS-CoV-2 (COVID-19) by RT-PCR (HIGH RISK)2019-09-18 00:00:00 Test Item Value Reference Range Interpretation Comments SARS-CoV-2 INTERPRETATION (test NEGATIVE code = 97164) SOURCE (test code = 11099) NOT SPECIFIED SARS-CoV-2 (COVID-19) by RT-PCR (HIGH RISK)2019-09-18 00:00:00 Test Item Value Reference Range Interpretation Comments SARS-CoV-2 INTERPRETATION (test NEGATIVE code = 41423) SOURCE (test code = 98901) NOT SPECIFIED SARS-CoV-2 (COVID-19) by RT-PCR (HIGH RISK)2019-09-18 00:00:00 Test Item Value Reference Range Interpretation Comments SARS-CoV-2 INTERPRETATION (test NEGATIVE code = 73415) SOURCE (test code = 04216) NOT SPECIFIED SARS-CoV-2 (COVID-19) by RT-PCR (HIGH RISK)2019-09-18 00:00:00 Test Item Value Reference Range Interpretation Comments SARS-CoV-2 INTERPRETATION (test NEGATIVE code = 63714) SOURCE (test code = 78592) NOT SPECIFIED SARS-CoV-2 (COVID-19) by RT-PCR (HIGH RISK)2019-09-18 00:00:00 Test Item Value Reference Range Interpretation Comments SARS-CoV-2 INTERPRETATION (test NEGATIVE code = 85812) SOURCE (test code = 58861) NOT SPECIFIED SARS-CoV-2 (COVID-19) by RT-PCR (HIGH RISK)2019-09-18 00:00:00 Test Item Value Reference Range Interpretation Comments SARS-CoV-2 INTERPRETATION (test NEGATIVE code = 72342) SOURCE (test code = 02269) NOT SPECIFIED SARS-CoV-2 (COVID-19) by RT-PCR (HIGH RISK)2019-09-18 00:00:00 Test Item Value Reference Range Interpretation Comments SARS-CoV-2 INTERPRETATION (test NEGATIVE code = 97812) SOURCE (test code = 69372) NOT SPECIFIED [id number] 00:00:00 Test Item Value Reference Range Interpretation Comments TSH, THIRD GENERATION (test code 2.490 UIU/ML = 2821) [id number] 00:00:00 Test Item Value Reference Range Interpretation Comments TSH, THIRD GENERATION (test code 2.490 UIU/ML = 2821) [id number] 00:00:00 Test Item Value Reference Range Interpretation Comments TSH, THIRD GENERATION (test code 2.490 UIU/ML = 2821) HEMOGLOBIN [id number] 00:00:00 Test Item Value Reference Range Interpretation Comments HEMOGLOBIN A1c (test code = 78332) 6.4 % HEMOGLOBIN [id number] 00:00:00 Test Item Value Reference Range Interpretation Comments HEMOGLOBIN A1c (test code = 22669) 6.4 % HEMOGLOBIN [id number] 00:00:00 Test Item Value Reference Range Interpretation Comments HEMOGLOBIN A1c (test code = 02751) 6.4 % COMPREHENSIVE METABOLIC [id number] 00:00:00 Test Item Value Reference Range Interpretation Comments GLUCOSE (test code = 2217) 206 MG/DL BUN (test code = 2208) 23 MG/DL CREATININE (test code = 2214) 0.67 MG/DL eGFR AMER. (test code 112 ML/MIN/1.73 = 48482) eGFR NON- AMER. (test 97 ML/MIN/1.73 code = 50957) CALC BUN/CREAT (test code = 34 RATIO [...] code = 2219) 25 U/L COMPREHENSIVE METABOLIC [id number] 00:00:00 Test Item Value Reference Range Interpretation Comments GLUCOSE (test code = 2217) 206 MG/DL BUN (test code = 2208) 23 MG/DL CREATININE (test code = 2214) 0.67 MG/DL eGFR AMER. (test code 112 ML/MIN/1.73 = 70369) eGFR NON- AMER. (test 97 ML/MIN/1.73 code = 68109) CALC BUN/CREAT (test code = 34 RATIO [...] ALT (test code = 2219) 25 U/L [id number] 00:00:00 Test Item Value Reference Range Interpretation Comments TSH, THIRD GENERATION (test code 2.490 UIU/ML = 2821) [id number] 00:00:00 Test Item Value Reference Range Interpretation Comments TSH, THIRD GENERATION (test code 2.490 UIU/ML = 2821) [id number] 00:00:00 Test Item Value Reference Range Interpretation Comments TSH, THIRD GENERATION (test code 2.490 UIU/ML = 2821) HEMOGLOBIN [id number] 00:00:00 Test Item Value Reference Range Interpretation Comments HEMOGLOBIN A1c (test code = 63558) 6.4 % HEMOGLOBIN [id number] 00:00:00 Test Item Value Reference Range Interpretation Comments HEMOGLOBIN A1c (test code = 88875) 6.4 % HEMOGLOBIN [id number] 00:00:00 Test Item Value Reference Range Interpretation Comments HEMOGLOBIN A1c (test code = 18728) 6.4 % COMPREHENSIVE METABOLIC [id number] 00:00:00 Test Item Value Reference Range Interpretation Comments GLUCOSE (test code = 2217) 206 MG/DL BUN (test code = 2208) 23 MG/DL CREATININE (test code = 2214) 0.67 MG/DL eGFR AMER. (test code 112 ML/MIN/1.73 = 80306) eGFR NON- AMER. (test 97 ML/MIN/1.73 code = 22493) CALC BUN/CREAT (test code = 34 RATIO [...] code = 2219) 25 U/L COMPREHENSIVE METABOLIC [id number] 00:00:00 Test Item Value Reference Range Interpretation Comments GLUCOSE (test code = 2217) 206 MG/DL BUN (test code = 2208) 23 MG/DL CREATININE (test code = 2214) 0.67 MG/DL eGFR AMER. (test code 112 ML/MIN/1.73 = 21605) eGFR NON- AMER. (test 97 ML/MIN/1.73 code = 00889) CALC BUN/CREAT (test code = 34 RATIO [...] ALT (test code = 2219) 25 U/L [id number] 00:00:00 Test Item Value Reference Range Interpretation Comments TSH, THIRD GENERATION (test code 2.490 UIU/ML = 2821) [id number] 00:00:00 Test Item Value Reference Range Interpretation Comments TSH, THIRD GENERATION (test code 2.490 UIU/ML = 2821) HEMOGLOBIN [id number] 00:00:00 Test Item Value Reference Range Interpretation Comments HEMOGLOBIN A1c (test code = 73012) 6.4 % HEMOGLOBIN [id number] 00:00:00 Test Item Value Reference Range Interpretation Comments HEMOGLOBIN A1c (test code = 93651) 6.4 % COMPREHENSIVE METABOLIC [id number] 00:00:00 Test Item Value Reference Range Interpretation Comments GLUCOSE (test code = 2217) 206 MG/DL BUN (test code = 2208) 23 MG/DL CREATININE (test code = 2214) 0.67 MG/DL eGFR AMER. (test code 112 ML/MIN/1.73 = 64832) eGFR NON- AMER. (test 97 ML/MIN/1.73 code = 00845) CALC BUN/CREAT (test code = 34 RATIO [...] ALT (test code = 2219) 25 U/L [id number] 00:00:00 Test Item Value Reference Range Interpretation Comments TSH, THIRD GENERATION (test code 2.490 UIU/ML = 2821) [id number] 00:00:00 Test Item Value Reference Range Interpretation Comments TSH, THIRD GENERATION (test code 2.490 UIU/ML = 2821) [id number] 00:00:00 Test Item Value Reference Range Interpretation Comments TSH, THIRD GENERATION (test code 2.490 UIU/ML = 2821) HEMOGLOBIN [id number] 00:00:00 Test Item Value Reference Range Interpretation Comments HEMOGLOBIN A1c (test code = 79591) 6.4 % HEMOGLOBIN [id number] 00:00:00 Test Item Value Reference Range Interpretation Comments HEMOGLOBIN A1c (test code = 95303) 6.4 % HEMOGLOBIN [id number] 00:00:00 Test Item Value Reference Range Interpretation Comments HEMOGLOBIN A1c (test code = 37175) 6.4 % COMPREHENSIVE METABOLIC [id number] 00:00:00 Test Item Value Reference Range Interpretation Comments GLUCOSE (test code = 2217) 206 MG/DL BUN (test code = 2208) 23 MG/DL CREATININE (test code = 2214) 0.67 MG/DL eGFR AMER. (test code 112 ML/MIN/1.73 = 14109) eGFR NON- AMER. (test 97 ML/MIN/1.73 code = 51726) CALC BUN/CREAT (test code = 34 RATIO [...] code = 2219) 25 U/L COMPREHENSIVE METABOLIC [id number] 00:00:00 Test Item Value Reference Range Interpretation Comments GLUCOSE (test code = 2217) 206 MG/DL BUN (test code = 2208) 23 MG/DL CREATININE (test code = 2214) 0.67 MG/DL eGFR AMER. (test code 112 ML/MIN/1.73 = 10782) eGFR NON- AMER. (test 97 ML/MIN/1.73 code = 38698) CALC BUN/CREAT (test code = 34 RATIO [...] = 2219) 25 U/L VAGINAL PATHOGENS DNA [id number] 00:00:00 Test Item Value Reference Range Interpretation Comments MARK SPECIES (test code = 11589) NEGATIVE G. VAGINALIS (test code = 77320) NEGATIVE T. VAGINALIS (test code = 18633) NEGATIVE VAGINAL PATHOGENS DNA [id number] 00:00:00 Test Item Value Reference Range Interpretation Comments MARK SPECIES (test code = 97697) NEGATIVE G. VAGINALIS (test code = 17310) NEGATIVE T. VAGINALIS (test code = 29267) NEGATIVE VAGINAL PATHOGENS DNA [id number] 00:00:00 Test Item Value Reference Range Interpretation Comments MARK SPECIES (test code = 69008) NEGATIVE G. VAGINALIS (test code = 09938) NEGATIVE T. VAGINALIS (test code = 51775) NEGATIVE VAGINAL PATHOGENS DNA [id number] 00:00:00 Test Item Value Reference Range Interpretation Comments MARK SPECIES (test code = 61807) NEGATIVE G. VAGINALIS (test code = 12834) NEGATIVE T. VAGINALIS (test code = 59724) NEGATIVE VAGINAL PATHOGENS DNA [id number] 00:00:00 Test Item Value Reference Range Interpretation Comments MARK SPECIES (test code = 49468) NEGATIVE G. VAGINALIS (test code = 99399) NEGATIVE T. VAGINALIS (test code = 23672) NEGATIVE VAGINAL PATHOGENS DNA [id number] 00:00:00 Test Item Value Reference Range Interpretation Comments MARK SPECIES (test code = 86248) NEGATIVE G. VAGINALIS (test code = 06837) NEGATIVE T. VAGINALIS (test code = 05075) NEGATIVE VAGINAL PATHOGENS DNA [id number] 00:00:00 Test Item Value Reference Range Interpretation Comments MARK SPECIES (test code = ) NEGATIVE G. VAGINALIS (test code = 08991) NEGATIVE T. VAGINALIS (test code = 75110) NEGATIVE HEMOGLOBIN A1c [ADDED]2018-12-01 00:00:00 Test Item Value Reference Range Interpretation Comments HEMOGLOBIN A1c (test code = 43730) 6.7 % HEMOGLOBIN A1c [ADDED]2018-12-01 00:00:00 Test Item Value Reference Range Interpretation Comments HEMOGLOBIN A1c (test code = 03760) 6.7 % HEMOGLOBIN A1c [ADDED]2018-12-01 00:00:00 Test Item Value Reference Range Interpretation Comments HEMOGLOBIN A1c (test code = 60610) 6.7 % COMPREHENSIVE METABOLIC PANEL [ADDED]2018-12-01 00:00:00 Test Item Value Reference Range Interpretation Comments GLUCOSE (test code = 2217) 136 MG/DL BUN (test code = 2208) 15 MG/DL CREATININE (test code = 2214) 0.64 MG/DL eGFR AMER. (test code 115 ML/MIN/1.73 = 50071) eGFR NON- AMER. (test 99 ML/MIN/1.73 code = 34583) CALC BUN/CREAT (test code = 23 RATIO [...] eGFR AMER. (test code 115 ML/MIN/1.73 = 27159) eGFR NON- AMER. (test 99 ML/MIN/1.73 code = 73974) CALC BUN/CREAT (test code = 23 RATIO [...] Interpretation Comments HEMOGLOBIN A1c (test code = 42268) 6.7 % HEMOGLOBIN A1c [ADDED]2018-12-01 00:00:00 Test Item Value Reference Range Interpretation Comments HEMOGLOBIN A1c (test code = 00762) 6.7 % HEMOGLOBIN A1c [ADDED]2018-12-01 00:00:00 Test Item Value Reference Range Interpretation Comments HEMOGLOBIN A1c (test code = 44059) 6.7 % COMPREHENSIVE METABOLIC PANEL [ADDED]2018-12-01 00:00:00 Test Item Value Reference Range Interpretation Comments GLUCOSE (test code = 2217) 136 MG/DL BUN (test code = 2208) 15 MG/DL CREATININE (test code = 2214) 0.64 MG/DL eGFR AMER. (test code 115 ML/MIN/1.73 = 94866) eGFR NON- AMER. (test 99 ML/MIN/1.73 code = 14316) CALC BUN/CREAT (test code = 23 RATIO [...] eGFR AMER. (test code 115 ML/MIN/1.73 = 64015) eGFR NON- AMER. (test 99 ML/MIN/1.73 code = 84448) CALC BUN/CREAT (test code = 23 RATIO [...] Interpretation Comments HEMOGLOBIN A1c (test code = 29206) 6.7 % HEMOGLOBIN A1c [ADDED]2018-12-01 00:00:00 Test Item Value Reference Range Interpretation Comments HEMOGLOBIN A1c (test code = 39667) 6.7 % COMPREHENSIVE METABOLIC PANEL [ADDED]2018-12-01 00:00:00 Test Item Value Reference Range Interpretation Comments GLUCOSE (test code = 2217) 136 MG/DL BUN (test code = 2208) 15 MG/DL CREATININE (test code = 2214) 0.64 MG/DL eGFR AMER. (test code 115 ML/MIN/1.73 = 86497) eGFR NON- AMER. (test 99 ML/MIN/1.73 code = 03082) CALC BUN/CREAT (test code = 23 RATIO [...] Interpretation Comments HEMOGLOBIN A1c (test code = 85635) 6.7 % HEMOGLOBIN A1c [ADDED]2018-12-01 00:00:00 Test Item Value Reference Range Interpretation Comments HEMOGLOBIN A1c (test code = 45145) 6.7 % HEMOGLOBIN A1c [ADDED]2018-12-01 00:00:00 Test Item Value Reference Range Interpretation Comments HEMOGLOBIN A1c (test code = 92919) 6.7 % COMPREHENSIVE METABOLIC PANEL [ADDED]2018-12-01 00:00:00 Test Item Value Reference Range Interpretation Comments GLUCOSE (test code = 2217) 136 MG/DL BUN (test code = 2208) 15 MG/DL CREATININE (test code = 2214) 0.64 MG/DL eGFR AMER. (test code 115 ML/MIN/1.73 = 25885) eGFR NON- AMER. (test 99 ML/MIN/1.73 code = 89704) CALC BUN/CREAT (test code = 23 RATIO [...] eGFR AMER. (test code 115 ML/MIN/1.73 = 66192) eGFR NON- AMER. (test 99 ML/MIN/1.73 code = 71424) CALC BUN/CREAT (test code = 23 RATIO [...] code 1.280 UIU/ML = 2821) CBC W/AUTO [id number] 00:00:00 Test Item Value Reference Range Interpretation [...] code = 1015) 346 K/UL CBC W/AUTO [id number] 00:00:00 Test Item Value Reference Range Interpretation [...] code = 1015) 346 K/UL CBC W/AUTO [id number] 00:00:00 Test Item Value Reference Range Interpretation [...] (test code = 1015) 346 K/UL HEMOGLOBIN [id number] 00:00:00 Test Item Value Reference Range Interpretation Comments HEMOGLOBIN A1c (test code = 12837) 5.9 % HEMOGLOBIN [id number] 00:00:00 Test Item Value Reference Range Interpretation Comments HEMOGLOBIN A1c (test code = 52282) 5.9 % HEMOGLOBIN [id number] 00:00:00 Test Item Value Reference Range Interpretation Comments HEMOGLOBIN A1c (test code = 25637) 5.9 % LIPID [id number] 00:00:00 Test Item Value Reference Range Interpretation Comments CHOLESTEROL (test code = 2210) 318 MG/DL TRIGLYCERIDES (test code = 2232) 263 MG/DL HDL CHOLESTEROL (test code = 2220) 51 MG/DL CALC LDL CHOL (test code = 2237) 214 MG/DL RISK RATIO LDL/HDL (test code = 4.20 RATIO 2238) LIPID [id number] 00:00:00 Test Item Value Reference Range Interpretation Comments CHOLESTEROL (test code = 2210) 318 MG/DL TRIGLYCERIDES (test code = 2232) 263 MG/DL HDL CHOLESTEROL (test code = 2220) 51 MG/DL CALC LDL CHOL (test code = 2237) 214 MG/DL RISK RATIO LDL/HDL (test code = 4.20 RATIO 2238) COMPREHENSIVE METABOLIC [id number] 00:00:00 Test Item Value Reference Range Interpretation Comments GLUCOSE (test code = 2217) 113 MG/DL BUN (test code = 2208) 18 MG/DL CREATININE (test code = 2214) 0.70 MG/DL eGFR AMER. (test code 111 ML/MIN/1.73 = 51127) eGFR NON- AMER. (test 96 ML/MIN/1.73 code = 77435) CALC BUN/CREAT (test code = 26 RATIO [...] code = 2219) 31 U/L COMPREHENSIVE METABOLIC [id number] 00:00:00 Test Item Value Reference Range Interpretation Comments GLUCOSE (test code = 2217) 113 MG/DL BUN (test code = 2208) 18 MG/DL CREATININE (test code = 2214) 0.70 MG/DL eGFR AMER. (test code 111 ML/MIN/1.73 = 07098) eGFR NON- AMER. (test 96 ML/MIN/1.73 code = 33361) CALC BUN/CREAT (test code = 26 RATIO [...] ALT (test code = 2219) 31 U/L [id number] 00:00:00 Test Item Value Reference Range Interpretation Comments TSH, THIRD GENERATION (test code 2.520 UIU/ML = 2821) [id number] 00:00:00 Test Item Value Reference Range Interpretation Comments TSH, THIRD GENERATION (test code 2.520 UIU/ML = 2821) [id number] 00:00:00 Test Item Value Reference Range Interpretation Comments TSH, THIRD GENERATION (test code 2.520 UIU/ML = 2821) CBC W/AUTO [id number] 00:00:00 Test Item Value Reference Range Interpretation [...] code = 1015) 346 K/UL CBC W/AUTO [id number] 00:00:00 Test Item Value Reference Range Interpretation [...] code = 1015) 346 K/UL CBC W/AUTO [id number] 00:00:00 Test Item Value Reference Range Interpretation [...] (test code = 1015) 346 K/UL HEMOGLOBIN [id number] 00:00:00 Test Item Value Reference Range Interpretation Comments HEMOGLOBIN A1c (test code = 95156) 5.9 % HEMOGLOBIN [id number] 00:00:00 Test Item Value Reference Range Interpretation Comments HEMOGLOBIN A1c (test code = 28805) 5.9 % HEMOGLOBIN [id number] 00:00:00 Test Item Value Reference Range Interpretation Comments HEMOGLOBIN A1c (test code = 51562) 5.9 % LIPID [id number] 00:00:00 Test Item Value Reference Range Interpretation Comments CHOLESTEROL (test code = 2210) 318 MG/DL TRIGLYCERIDES (test code = 2232) 263 MG/DL HDL CHOLESTEROL (test code = 2220) 51 MG/DL CALC LDL CHOL (test code = 2237) 214 MG/DL RISK RATIO LDL/HDL (test code = 4.20 RATIO 2238) LIPID [id number] 00:00:00 Test Item Value Reference Range Interpretation Comments CHOLESTEROL (test code = 2210) 318 MG/DL TRIGLYCERIDES (test code = 2232) 263 MG/DL HDL CHOLESTEROL (test code = 2220) 51 MG/DL CALC LDL CHOL (test code = 2237) 214 MG/DL RISK RATIO LDL/HDL (test code = 4.20 RATIO 2238) COMPREHENSIVE METABOLIC [id number] 00:00:00 Test Item Value Reference Range Interpretation Comments GLUCOSE (test code = 2217) 113 MG/DL BUN (test code = 2208) 18 MG/DL CREATININE (test code = 2214) 0.70 MG/DL eGFR AMER. (test code 111 ML/MIN/1.73 = 56237) eGFR NON- AMER. (test 96 ML/MIN/1.73 code = 79913) CALC BUN/CREAT (test code = 26 RATIO [...] code = 2219) 31 U/L COMPREHENSIVE METABOLIC [id number] 00:00:00 Test Item Value Reference Range Interpretation Comments GLUCOSE (test code = 2217) 113 MG/DL BUN (test code = 2208) 18 MG/DL CREATININE (test code = 2214) 0.70 MG/DL eGFR AMER. (test code 111 ML/MIN/1.73 = 73787) eGFR NON- AMER. (test 96 ML/MIN/1.73 code = 40150) CALC BUN/CREAT (test code = 26 RATIO [...] ALT (test code = 2219) 31 U/L [id number] 00:00:00 Test Item Value Reference Range Interpretation Comments TSH, THIRD GENERATION (test code 2.520 UIU/ML = 2821) [id number] 00:00:00 Test Item Value Reference Range Interpretation Comments TSH, THIRD GENERATION (test code 2.520 UIU/ML = 2821) [id number] 00:00:00 Test Item Value Reference Range Interpretation Comments TSH, THIRD GENERATION (test code 2.520 UIU/ML = 2821) CBC W/AUTO [id number] 00:00:00 Test Item Value Reference Range Interpretation [...] code = 1015) 346 K/UL CBC W/AUTO [id number] 00:00:00 Test Item Value Reference Range Interpretation [...] (test code = 1015) 346 K/UL HEMOGLOBIN [id number] 00:00:00 Test Item Value Reference Range Interpretation Comments HEMOGLOBIN A1c (test code = 44237) 5.9 % HEMOGLOBIN [id number] 00:00:00 Test Item Value Reference Range Interpretation Comments HEMOGLOBIN A1c (test code = 81489) 5.9 % LIPID [id number] 00:00:00 Test Item Value Reference Range Interpretation Comments CHOLESTEROL (test code = 2210) 318 MG/DL TRIGLYCERIDES (test code = 2232) 263 MG/DL HDL CHOLESTEROL (test code = 2220) 51 MG/DL CALC LDL CHOL (test code = 2237) 214 MG/DL RISK RATIO LDL/HDL (test code = 4.20 RATIO 2238) COMPREHENSIVE METABOLIC [id number] 00:00:00 Test Item Value Reference Range Interpretation Comments GLUCOSE (test code = 2217) 113 MG/DL BUN (test code = 2208) 18 MG/DL CREATININE (test code = 2214) 0.70 MG/DL eGFR AMER. (test code 111 ML/MIN/1.73 = 67100) eGFR NON- AMER. (test 96 ML/MIN/1.73 code = 20620) CALC BUN/CREAT (test code = 26 RATIO [...] ALT (test code = 2219) 31 U/L [id number] 00:00:00 Test Item Value Reference Range Interpretation Comments TSH, THIRD GENERATION (test code 2.520 UIU/ML = 2821) [id number] 00:00:00 Test Item Value Reference Range Interpretation Comments TSH, THIRD GENERATION (test code 2.520 UIU/ML = 2821) CBC W/AUTO [id number] 00:00:00 Test Item Value Reference Range Interpretation [...] code = 1015) 346 K/UL CBC W/AUTO [id number] 00:00:00 Test Item Value Reference Range Interpretation [...] code = 1015) 346 K/UL CBC W/AUTO [id number] 00:00:00 Test Item Value Reference Range Interpretation [...] (test code = 1015) 346 K/UL HEMOGLOBIN [id number] 00:00:00 Test Item Value Reference Range Interpretation Comments HEMOGLOBIN A1c (test code = 16910) 5.9 % HEMOGLOBIN [id number] 00:00:00 Test Item Value Reference Range Interpretation Comments HEMOGLOBIN A1c (test code = 66178) 5.9 % HEMOGLOBIN [id number] 00:00:00 Test Item Value Reference Range Interpretation Comments HEMOGLOBIN A1c (test code = 23976) 5.9 % LIPID [id number] 00:00:00 Test Item Value Reference Range Interpretation Comments CHOLESTEROL (test code = 2210) 318 MG/DL TRIGLYCERIDES (test code = 2232) 263 MG/DL HDL CHOLESTEROL (test code = 2220) 51 MG/DL CALC LDL CHOL (test code = 2237) 214 MG/DL RISK RATIO LDL/HDL (test code = 4.20 RATIO 2238) LIPID [id number] 00:00:00 Test Item Value Reference Range Interpretation Comments CHOLESTEROL (test code = 2210) 318 MG/DL TRIGLYCERIDES (test code = 2232) 263 MG/DL HDL CHOLESTEROL (test code = 2220) 51 MG/DL CALC LDL CHOL (test code = 2237) 214 MG/DL RISK RATIO LDL/HDL (test code = 4.20 RATIO 2238) COMPREHENSIVE METABOLIC [id number] 00:00:00 Test Item Value Reference Range Interpretation Comments GLUCOSE (test code = 2217) 113 MG/DL BUN (test code = 2208) 18 MG/DL CREATININE (test code = 2214) 0.70 MG/DL eGFR AMER. (test code 111 ML/MIN/1.73 = 60170) eGFR NON- AMER. (test 96 ML/MIN/1.73 code = 68868) CALC BUN/CREAT (test code = 26 RATIO [...] code = 2219) 31 U/L COMPREHENSIVE METABOLIC [id number] 00:00:00 Test Item Value Reference Range Interpretation Comments GLUCOSE (test code = 2217) 113 MG/DL BUN (test code = 2208) 18 MG/DL CREATININE (test code = 2214) 0.70 MG/DL eGFR AMER. (test code 111 ML/MIN/1.73 = 73689) eGFR NON- AMER. (test 96 ML/MIN/1.73 code = 63535) CALC BUN/CREAT (test code = 26 RATIO [...] ALT (test code = 2219) 31 U/L [id number] 00:00:00 Test Item Value Reference Range Interpretation Comments TSH, THIRD GENERATION (test code 2.520 UIU/ML = 2821) [id number] 00:00:00 Test Item Value Reference Range Interpretation Comments TSH, THIRD GENERATION (test code 2.520 UIU/ML = 2821) [id number] 00:00:00 Test Item Value Reference Range Interpretation Comments TSH, THIRD GENERATION (test code 2.520 UIU/ML = 2821) CULTURE, [id number] 00:00:00 Test Item Value Reference Range Interpretation Comments CULTURE, URINE (test SPECIMEN NUMBER: code = 63054) [id number] CULTURE, [id number] 00:00:00 Test Item Value Reference Range Interpretation Comments CULTURE, URINE (test SPECIMEN NUMBER: code = 15385) [id number] CULTURE, [id number] 00:00:00 Test Item Value Reference Range Interpretation Comments CULTURE, URINE (test SPECIMEN NUMBER: code = 34130) [id number] CULTURE, [id number] 00:00:00 Test Item Value Reference Range Interpretation Comments CULTURE, URINE (test SPECIMEN NUMBER: code = 73407) [id number] CULTURE, [id number] 00:00:00 Test Item Value Reference Range Interpretation Comments CULTURE, URINE (test SPECIMEN NUMBER: code = 43873) [id number] CULTURE, [id number] 00:00:00 Test Item Value Reference Range Interpretation Comments CULTURE, URINE (test SPECIMEN NUMBER: code = 35752) [id number] CULTURE, [id number] 00:00:00 Test Item Value Reference Range Interpretation Comments CULTURE, URINE (test SPECIMEN NUMBER: code = 29174) [id number] CULTURE, [id number] 00:00:00 Test Item Value Reference Range Interpretation Comments CULTURE, URINE (test SPECIMEN NUMBER: code = 07919) [id number] CULTURE, [id number] 00:00:00 Test Item Value Reference Range Interpretation Comments CULTURE, URINE (test SPECIMEN NUMBER: code = 07081) [id number] CULTURE, [id number] 00:00:00 Test Item Value Reference Range Interpretation Comments CULTURE, URINE (test SPECIMEN NUMBER: code = 31499) [id number] CULTURE, [id number] 00:00:00 Test Item Value Reference Range Interpretation Comments CULTURE, URINE (test SPECIMEN NUMBER: code = 83035) [id number] CULTURE, [id number] 00:00:00 Test Item Value Reference Range Interpretation Comments CULTURE, URINE (test SPECIMEN NUMBER: code = 55861) [id number] CULTURE, [id number] 00:00:00 Test Item Value Reference Range Interpretation Comments CULTURE, URINE (test SPECIMEN NUMBER: code = 96097) [id number] CULTURE, [id number] 00:00:00 Test Item Value Reference Range Interpretation Comments CULTURE, URINE (test SPECIMEN NUMBER: code = 37374) [id number] BASIC METABOLIC [id number] 00:00:00 Test Item Value Reference Range Interpretation Comments GLUCOSE (test code = 2217) 135 MG/DL BUN (test code = 2208) 25 MG/DL CREATININE (test code = 2214) 0.76 MG/DL eGFR AMER. (test code 101 ML/MIN/1.73 = 06327) eGFR NON- AMER. (test 87 ML/MIN/1.73 code = 95134) SODIUM (test code = 2231) 139 MEQ/L POTASSIUM (test code = 2228) 4.7 MEQ/L CHLORIDE (test code = 2215) 99 MEQ/L CARBON DIOXIDE (test code = 26 MEQ/L 2206) CALCIUM (test code = 2209) 9.4 MG/DL BASIC METABOLIC [id number] 00:00:00 Test Item Value Reference Range Interpretation Comments GLUCOSE (test code = 2217) 135 MG/DL BUN (test code = 2208) 25 MG/DL CREATININE (test code = 2214) 0.76 MG/DL eGFR AMER. (test code 101 ML/MIN/1.73 = 30843) eGFR NON- AMER. (test 87 ML/MIN/1.73 code = 50174) SODIUM (test code = 2231) 139 MEQ/L POTASSIUM (test code = 2228) 4.7 MEQ/L CHLORIDE (test code = 2215) 99 MEQ/L CARBON DIOXIDE (test code = 26 MEQ/L 2206) CALCIUM (test code = 2209) 9.4 MG/DL LIPID [id number] 00:00:00 Test Item Value Reference Range Interpretation Comments CHOLESTEROL (test code = 2210) 262 MG/DL TRIGLYCERIDES (test code = 2232) 300 MG/DL HDL CHOLESTEROL (test code = 2220) 36 MG/DL CALC LDL CHOL (test code = 2237) 166 MG/DL RISK RATIO LDL/HDL (test code = 4.61 RATIO 2238) LIPID [id number] 00:00:00 Test Item Value Reference Range Interpretation Comments CHOLESTEROL (test code = 2210) 262 MG/DL TRIGLYCERIDES (test code = 2232) 300 MG/DL HDL CHOLESTEROL (test code = 2220) 36 MG/DL CALC LDL CHOL (test code = 2237) 166 MG/DL RISK RATIO LDL/HDL (test code = 4.61 RATIO 2238) HEMOGLOBIN [id number] 00:00:00 Test Item Value Reference Range Interpretation Comments HEMOGLOBIN A1c (test code = 50137) 6.2 % HEMOGLOBIN [id number] 00:00:00 Test Item Value Reference Range Interpretation Comments HEMOGLOBIN A1c (test code = 39950) 6.2 % HEMOGLOBIN [id number] 00:00:00 Test Item Value Reference Range Interpretation Comments HEMOGLOBIN A1c (test code = 12468) 6.2 % [id number] 00:00:00 Test Item Value Reference Range Interpretation Comments TSH, THIRD GENERATION (test code 0.988 UIU/ML = 2821) [id number] 00:00:00 Test Item Value Reference Range Interpretation Comments TSH, THIRD GENERATION (test code 0.988 UIU/ML = 2821) [id number] 00:00:00 Test Item Value Reference Range Interpretation Comments TSH, THIRD GENERATION (test code 0.988 UIU/ML = 2821) BASIC METABOLIC [id number] 00:00:00 Test Item Value Reference Range Interpretation Comments GLUCOSE (test code = 2217) 135 MG/DL BUN (test code = 2208) 25 MG/DL CREATININE (test code = 2214) 0.76 MG/DL eGFR AMER. (test code 101 ML/MIN/1.73 = 52878) eGFR NON- AMER. (test 87 ML/MIN/1.73 code = 48004) SODIUM (test code = 2231) 139 MEQ/L POTASSIUM (test code = 2228) 4.7 MEQ/L CHLORIDE (test code = 2215) 99 MEQ/L CARBON DIOXIDE (test code = 26 MEQ/L 2206) CALCIUM (test code = 2209) 9.4 MG/DL BASIC METABOLIC [id number] 00:00:00 Test Item Value Reference Range Interpretation Comments GLUCOSE (test code = 2217) 135 MG/DL BUN (test code = 2208) 25 MG/DL CREATININE (test code = 2214) 0.76 MG/DL eGFR AMER. (test code 101 ML/MIN/1.73 = 82793) eGFR NON- AMER. (test 87 ML/MIN/1.73 code = 68496) SODIUM (test code = 2231) 139 MEQ/L POTASSIUM (test code = 2228) 4.7 MEQ/L CHLORIDE (test code = 2215) 99 MEQ/L CARBON DIOXIDE (test code = 26 MEQ/L 2206) CALCIUM (test code = 2209) 9.4 MG/DL LIPID [id number] 00:00:00 Test Item Value Reference Range Interpretation Comments CHOLESTEROL (test code = 2210) 262 MG/DL TRIGLYCERIDES (test code = 2232) 300 MG/DL HDL CHOLESTEROL (test code = 2220) 36 MG/DL CALC LDL CHOL (test code = 2237) 166 MG/DL RISK RATIO LDL/HDL (test code = 4.61 RATIO 2238) LIPID [id number] 00:00:00 Test Item Value Reference Range Interpretation Comments CHOLESTEROL (test code = 2210) 262 MG/DL TRIGLYCERIDES (test code = 2232) 300 MG/DL HDL CHOLESTEROL (test code = 2220) 36 MG/DL CALC LDL CHOL (test code = 2237) 166 MG/DL RISK RATIO LDL/HDL (test code = 4.61 RATIO 2238) HEMOGLOBIN [id number] 00:00:00 Test Item Value Reference Range Interpretation Comments HEMOGLOBIN A1c (test code = 81795) 6.2 % HEMOGLOBIN [id number] 00:00:00 Test Item Value Reference Range Interpretation Comments HEMOGLOBIN A1c (test code = 83836) 6.2 % HEMOGLOBIN [id number] 00:00:00 Test Item Value Reference Range Interpretation Comments HEMOGLOBIN A1c (test code = 87241) 6.2 % [id number] 00:00:00 Test Item Value Reference Range Interpretation Comments TSH, THIRD GENERATION (test code 0.988 UIU/ML = 2821) [id number] 00:00:00 Test Item Value Reference Range Interpretation Comments TSH, THIRD GENERATION (test code 0.988 UIU/ML = 2821) [id number] 00:00:00 Test Item Value Reference Range Interpretation Comments TSH, THIRD GENERATION (test code 0.988 UIU/ML = 2821) BASIC METABOLIC [id number] 00:00:00 Test Item Value Reference Range Interpretation Comments GLUCOSE (test code = 2217) 135 MG/DL BUN (test code = 2208) 25 MG/DL CREATININE (test code = 2214) 0.76 MG/DL eGFR AMER. (test code 101 ML/MIN/1.73 = 50795) eGFR NON- AMER. (test 87 ML/MIN/1.73 code = 37356) SODIUM (test code = 2231) 139 MEQ/L POTASSIUM (test code = 2228) 4.7 MEQ/L CHLORIDE (test code = 2215) 99 MEQ/L CARBON DIOXIDE (test code = 26 MEQ/L 2206) CALCIUM (test code = 2209) 9.4 MG/DL LIPID [id number] 00:00:00 Test Item Value Reference Range Interpretation Comments CHOLESTEROL (test code = 2210) 262 MG/DL TRIGLYCERIDES (test code = 2232) 300 MG/DL HDL CHOLESTEROL (test code = 2220) 36 MG/DL CALC LDL CHOL (test code = 2237) 166 MG/DL RISK RATIO LDL/HDL (test code = 4.61 RATIO 2238) HEMOGLOBIN [id number] 00:00:00 Test Item Value Reference Range Interpretation Comments HEMOGLOBIN A1c (test code = 01650) 6.2 % HEMOGLOBIN [id number] 00:00:00 Test Item Value Reference Range Interpretation Comments HEMOGLOBIN A1c (test code = 34551) 6.2 % [id number] 00:00:00 Test Item Value Reference Range Interpretation Comments TSH, THIRD GENERATION (test code 0.988 UIU/ML = 2821) [id number] 00:00:00 Test Item Value Reference Range Interpretation Comments TSH, THIRD GENERATION (test code 0.988 UIU/ML = 2821) BASIC METABOLIC [id number] 00:00:00 Test Item Value Reference Range Interpretation Comments GLUCOSE (test code = 2217) 135 MG/DL BUN (test code = 2208) 25 MG/DL CREATININE (test code = 2214) 0.76 MG/DL eGFR AMER. (test code 101 ML/MIN/1.73 = 89277) eGFR NON- AMER. (test 87 ML/MIN/1.73 code = 00006) SODIUM (test code = 2231) 139 MEQ/L POTASSIUM (test code = 2228) 4.7 MEQ/L CHLORIDE (test code = 2215) 99 MEQ/L CARBON DIOXIDE (test code = 26 MEQ/L 2206) CALCIUM (test code = 2209) 9.4 MG/DL BASIC METABOLIC [id number] 00:00:00 Test Item Value Reference Range Interpretation Comments GLUCOSE (test code = 2217) 135 MG/DL BUN (test code = 2208) 25 MG/DL CREATININE (test code = 2214) 0.76 MG/DL eGFR AMER. (test code 101 ML/MIN/1.73 = 80526) eGFR NON- AMER. (test 87 ML/MIN/1.73 code = 81899) SODIUM (test code = 2231) 139 MEQ/L POTASSIUM (test code = 2228) 4.7 MEQ/L CHLORIDE (test code = 2215) 99 MEQ/L CARBON DIOXIDE (test code = 26 MEQ/L 2206) CALCIUM (test code = 2209) 9.4 MG/DL LIPID [id number] 00:00:00 Test Item Value Reference Range Interpretation Comments CHOLESTEROL (test code = 2210) 262 MG/DL TRIGLYCERIDES (test code = 2232) 300 MG/DL HDL CHOLESTEROL (test code = 2220) 36 MG/DL CALC LDL CHOL (test code = 2237) 166 MG/DL RISK RATIO LDL/HDL (test code = 4.61 RATIO 2238) LIPID [id number] 00:00:00 Test Item Value Reference Range Interpretation Comments CHOLESTEROL (test code = 2210) 262 MG/DL TRIGLYCERIDES (test code = 2232) 300 MG/DL HDL CHOLESTEROL (test code = 2220) 36 MG/DL CALC LDL CHOL (test code = 2237) 166 MG/DL RISK RATIO LDL/HDL (test code = 4.61 RATIO 2238) HEMOGLOBIN [id number] 00:00:00 Test Item Value Reference Range Interpretation Comments HEMOGLOBIN A1c (test code = 32224) 6.2 % HEMOGLOBIN [id number] 00:00:00 Test Item Value Reference Range Interpretation Comments HEMOGLOBIN A1c (test code = 80921) 6.2 % HEMOGLOBIN [id number] 00:00:00 Test Item Value Reference Range Interpretation Comments HEMOGLOBIN A1c (test code = 16557) 6.2 % [id number] 00:00:00 Test Item Value Reference Range Interpretation Comments TSH, THIRD GENERATION (test code 0.988 UIU/ML = 2821) [id number] 00:00:00 Test Item Value Reference Range Interpretation Comments TSH, THIRD GENERATION (test code 0.988 UIU/ML = 2821) [id number] 00:00:00 Test Item Value Reference Range Interpretation Comments TSH, THIRD GENERATION (test code 0.988 UIU/ML = 2821) COMPREHENSIVE METABOLIC [id number] 00:00:00 Test Item Value Reference Range Interpretation Comments GLUCOSE (test code = 2217) 109 MG/DL BUN (test code = 2208) 25 MG/DL CREATININE (test code = 2214) 0.78 MG/DL eGFR AMER. (test code 98 ML/MIN/1.73 = 90383) eGFR NON- AMER. (test 84 ML/MIN/1.73 code = 33443) CALC BUN/CREAT (test code = 32 RATIO [...] code = 2219) 25 U/L COMPREHENSIVE METABOLIC [id number] 00:00:00 Test Item Value Reference Range Interpretation Comments GLUCOSE (test code = 221) 109 MG/DL BUN (test code = 2208) 25 MG/DL CREATININE (test code = 2214) 0.78 MG/DL eGFR AMER. (test code 98 ML/MIN/1.73 = 65747) eGFR NON- AMER. (test 84 ML/MIN/1.73 code = 49910) CALC BUN/CREAT (test code = 32 RATIO [...] (test code = 2219) 25 U/L LIPID [id number] 00:00:00 Test Item Value Reference Range Interpretation Comments CHOLESTEROL (test code = 2210) 295 MG/DL TRIGLYCERIDES (test code = 2232) 218 MG/DL HDL CHOLESTEROL (test code = 2220) 46 MG/DL CALC LDL CHOL (test code = 2237) 205 MG/DL RISK RATIO LDL/HDL (test code = 4.47 RATIO 2238) LIPID [id number] 00:00:00 Test Item Value Reference Range Interpretation Comments CHOLESTEROL (test code = 2210) 295 MG/DL TRIGLYCERIDES (test code = 2232) 218 MG/DL HDL CHOLESTEROL (test code = 2220) 46 MG/DL CALC LDL CHOL (test code = 2237) 205 MG/DL RISK RATIO LDL/HDL (test code = 4.47 RATIO 2238) HEMOGLOBIN [id number] 00:00:00 Test Item Value Reference Range Interpretation Comments HEMOGLOBIN A1c (test code = 24820) 7.0 % HEMOGLOBIN [id number] 00:00:00 Test Item Value Reference Range Interpretation Comments HEMOGLOBIN A1c (test code = 97987) 7.0 % HEMOGLOBIN [id number] 00:00:00 Test Item Value Reference Range Interpretation Comments HEMOGLOBIN A1c (test code = 36952) 7.0 % [id number] 00:00:00 Test Item Value Reference Range Interpretation Comments TSH, THIRD GENERATION (test code 0.565 UIU/ML = 2821) [id number] 00:00:00 Test Item Value Reference Range Interpretation Comments TSH, THIRD GENERATION (test code 0.565 UIU/ML = 2821) [id number] 00:00:00 Test Item Value Reference Range Interpretation Comments TSH, THIRD GENERATION (test code 0.565 UIU/ML = 2821) COMPREHENSIVE METABOLIC [id number] 00:00:00 Test Item Value Reference Range Interpretation Comments GLUCOSE (test code = 2217) 109 MG/DL BUN (test code = 2208) 25 MG/DL CREATININE (test code = 2214) 0.78 MG/DL eGFR AMER. (test code 98 ML/MIN/1.73 = 28240) eGFR NON- AMER. (test 84 ML/MIN/1.73 code = 79445) CALC BUN/CREAT (test code = 32 RATIO [...] code = 2219) 25 U/L COMPREHENSIVE METABOLIC [id number] 00:00:00 Test Item Value Reference Range Interpretation Comments GLUCOSE (test code = 2217) 109 MG/DL BUN (test code = 2208) 25 MG/DL CREATININE (test code = 2214) 0.78 MG/DL eGFR AMER. (test code 98 ML/MIN/1.73 = 41434) eGFR NON- AMER. (test 84 ML/MIN/1.73 code = 62551) CALC BUN/CREAT (test code = 32 RATIO [...] (test code = 2219) 25 U/L LIPID [id number] 00:00:00 Test Item Value Reference Range Interpretation Comments CHOLESTEROL (test code = 2210) 295 MG/DL TRIGLYCERIDES (test code = 2232) 218 MG/DL HDL CHOLESTEROL (test code = 2220) 46 MG/DL CALC LDL CHOL (test code = 2237) 205 MG/DL RISK RATIO LDL/HDL (test code = 4.47 RATIO 2238) LIPID [id number] 00:00:00 Test Item Value Reference Range Interpretation Comments CHOLESTEROL (test code = 2210) 295 MG/DL TRIGLYCERIDES (test code = 2232) 218 MG/DL HDL CHOLESTEROL (test code = 2220) 46 MG/DL CALC LDL CHOL (test code = 2237) 205 MG/DL RISK RATIO LDL/HDL (test code = 4.47 RATIO 2238) HEMOGLOBIN [id number] 00:00:00 Test Item Value Reference Range Interpretation Comments HEMOGLOBIN A1c (test code = 64727) 7.0 % HEMOGLOBIN [id number] 00:00:00 Test Item Value Reference Range Interpretation Comments HEMOGLOBIN A1c (test code = 71659) 7.0 % HEMOGLOBIN [id number] 00:00:00 Test Item Value Reference Range Interpretation Comments HEMOGLOBIN A1c (test code = 95138) 7.0 % [id number] 00:00:00 Test Item Value Reference Range Interpretation Comments TSH, THIRD GENERATION (test code 0.565 UIU/ML = 2821) [id number] 00:00:00 Test Item Value Reference Range Interpretation Comments TSH, THIRD GENERATION (test code 0.565 UIU/ML = 2821) [id number] 00:00:00 Test Item Value Reference Range Interpretation Comments TSH, THIRD GENERATION (test code 0.565 UIU/ML = 2821) COMPREHENSIVE METABOLIC [id number] 00:00:00 Test Item Value Reference Range Interpretation Comments GLUCOSE (test code = 2217) 109 MG/DL BUN (test code = 2208) 25 MG/DL CREATININE (test code = 2214) 0.78 MG/DL eGFR AMER. (test code 98 ML/MIN/1.73 = 14653) eGFR NON- AMER. (test 84 ML/MIN/1.73 code = 48620) CALC BUN/CREAT (test code = 32 RATIO [...] (test code = 2219) 25 U/L LIPID [id number] 00:00:00 Test Item Value Reference Range Interpretation Comments CHOLESTEROL (test code = 2210) 295 MG/DL TRIGLYCERIDES (test code = 2232) 218 MG/DL HDL CHOLESTEROL (test code = 2220) 46 MG/DL CALC LDL CHOL (test code = 2237) 205 MG/DL RISK RATIO LDL/HDL (test code = 4.47 RATIO 8) HEMOGLOBIN [id number] 00:00:00 Test Item Value Reference Range Interpretation Comments HEMOGLOBIN A1c (test code = 37145) 7.0 % HEMOGLOBIN [id number] 00:00:00 Test Item Value Reference Range Interpretation Comments HEMOGLOBIN A1c (test code = 09294) 7.0 % [id number] 00:00:00 Test Item Value Reference Range Interpretation Comments TSH, THIRD GENERATION (test code 0.565 UIU/ML = 2821) [id number] 00:00:00 Test Item Value Reference Range Interpretation Comments TSH, THIRD GENERATION (test code 0.565 UIU/ML = 2821) COMPREHENSIVE METABOLIC [id number] 00:00:00 Test Item Value Reference Range Interpretation Comments GLUCOSE (test code = 2216) 109 MG/DL BUN (test code = 8) 25 MG/DL CREATININE (test code = 2214) 0.78 MG/DL eGFR AMER. (test code 98 ML/MIN/1.73 = 99552) eGFR NON- AMER. (test 84 ML/MIN/1.73 code = 95246) CALC BUN/CREAT (test code = 32 RATIO [...] code = 2219) 25 U/L COMPREHENSIVE METABOLIC [id number] 00:00:00 Test Item Value Reference Range Interpretation Comments GLUCOSE (test code = 2217) 109 MG/DL BUN (test code = 2208) 25 MG/DL CREATININE (test code = 2214) 0.78 MG/DL eGFR AMER. (test code 98 ML/MIN/1.73 = 26957) eGFR NON- AMER. (test 84 ML/MIN/1.73 code = 88777) CALC BUN/CREAT (test code = 32 RATIO [...] (test code = 2219) 25 U/L LIPID [id number] 00:00:00 Test Item Value Reference Range Interpretation Comments CHOLESTEROL (test code = 2210) 295 MG/DL TRIGLYCERIDES (test code = 2232) 218 MG/DL HDL CHOLESTEROL (test code = 2220) 46 MG/DL CALC LDL CHOL (test code = 2237) 205 MG/DL RISK RATIO LDL/HDL (test code = 4.47 RATIO 2238) LIPID [id number] 00:00:00 Test Item Value Reference Range Interpretation Comments CHOLESTEROL (test code = 2210) 295 MG/DL TRIGLYCERIDES (test code = 2232) 218 MG/DL HDL CHOLESTEROL (test code = 2220) 46 MG/DL CALC LDL CHOL (test code = 2237) 205 MG/DL RISK RATIO LDL/HDL (test code = 4.47 RATIO 2238) HEMOGLOBIN [id number] 00:00:00 Test Item Value Reference Range Interpretation Comments HEMOGLOBIN A1c (test code = 25942) 7.0 % HEMOGLOBIN [id number] 00:00:00 Test Item Value Reference Range Interpretation Comments HEMOGLOBIN A1c (test code = 53821) 7.0 % HEMOGLOBIN [id number] 00:00:00 Test Item Value Reference Range Interpretation Comments HEMOGLOBIN A1c (test code = 06713) 7.0 % [id number] 00:00:00 Test Item Value Reference Range Interpretation Comments TSH, THIRD GENERATION (test code 0.565 UIU/ML = 2821) [id number] 00:00:00 Test Item Value Reference Range Interpretation Comments TSH, THIRD GENERATION (test code 0.565 UIU/ML = 2821) [id number] 00:00:00 Test Item Value Reference Range Interpretation Comments TSH, THIRD GENERATION (test code 0.565 UIU/ML = 2821) [id number] 00:00:00 Test Item Value Reference Range Interpretation Comments TSH, THIRD GENERATION (test code 0.379 UIU/ML = 2821) [id number] 00:00:00 Test Item Value Reference Range Interpretation Comments TSH, THIRD GENERATION (test code 0.379 UIU/ML = 2821) [id number] 00:00:00 Test Item Value Reference Range Interpretation Comments TSH, THIRD GENERATION (test code 0.379 UIU/ML = 2821) [id number] 00:00:00 Test Item Value Reference Range Interpretation Comments TSH, THIRD GENERATION (test code 0.379 UIU/ML = 2821) [id number] 00:00:00 Test Item Value Reference Range Interpretation Comments TSH, THIRD GENERATION (test code 0.379 UIU/ML = 2821) [id number] 00:00:00 Test Item Value Reference Range Interpretation Comments TSH, THIRD GENERATION (test code 0.379 UIU/ML = 2821) [id number] 00:00:00 Test Item Value Reference Range Interpretation Comments TSH, THIRD GENERATION (test code 0.379 UIU/ML = 2821) [id number] 00:00:00 Test Item Value Reference Range Interpretation Comments TSH, THIRD GENERATION (test code 0.379 UIU/ML = 2821) [id number] 00:00:00 Test Item Value Reference Range Interpretation Comments TSH, THIRD GENERATION (test code 0.379 UIU/ML = 2821) [id number] 00:00:00 Test Item Value Reference Range Interpretation Comments TSH, THIRD GENERATION (test code 0.379 UIU/ML = 2821) [id number] 00:00:00 Test Item Value Reference Range Interpretation Comments TSH, THIRD GENERATION (test code 0.379 UIU/ML = 2821) CULTURE, [id number] 00:00:00 Test Item Value Reference Range Interpretation Comments CULTURE, URINE (test SPECIMEN NUMBER: code = 82011) [id number] CULTURE, [id number] 00:00:00 Test Item Value Reference Range Interpretation Comments CULTURE, URINE (test SPECIMEN NUMBER: code = 68841) [id number] CULTURE, [id number] 00:00:00 Test Item Value Reference Range Interpretation Comments CULTURE, URINE (test SPECIMEN NUMBER: code = 32870) [id number] CULTURE, [id number] 00:00:00 Test Item Value Reference Range Interpretation Comments CULTURE, URINE (test SPECIMEN NUMBER: code = [id number]) [id number] CULTURE, [id number] 00:00:00 Test Item Value Reference Range Interpretation Comments CULTURE, URINE (test SPECIMEN NUMBER: code = 64426) [id number] CULTURE, [id number] 00:00:00 Test Item Value Reference Range Interpretation Comments CULTURE, URINE (test SPECIMEN NUMBER: code = 85508) [id number] CULTURE, [id number] 00:00:00 Test Item Value Reference Range Interpretation Comments CULTURE, URINE (test SPECIMEN NUMBER: code = 46224) [id number] COMPREHENSIVE METABOLIC [id number] 00:00:00 Test Item Value Reference Range Interpretation Comments GLUCOSE (test code = 2217) 128 MG/DL BUN (test code = 2208) 26 MG/DL CREATININE (test code = 2214) 0.92 MG/DL eGFR AMER. (test code 81 ML/MIN/1.73 = 18603) eGFR NON- AMER. (test 70 ML/MIN/1.73 code = 13205) CALC BUN/CREAT (test code = 28 RATIO [...] code = 2219) 29 U/L COMPREHENSIVE METABOLIC [id number] 00:00:00 Test Item Value Reference Range Interpretation Comments GLUCOSE (test code = 2217) 128 MG/DL BUN (test code = 2208) 26 MG/DL CREATININE (test code = 2214) 0.92 MG/DL eGFR AMER. (test code 81 ML/MIN/1.73 = 16094) eGFR NON- AMER. (test 70 ML/MIN/1.73 code = 43513) CALC BUN/CREAT (test code = 28 RATIO [...] code = 2219) 29 U/L ACUTE HEPATITIS [id number] 00:00:00 Test Item Value Reference Range Interpretation Comments HEPATITIS A IgM (test code = NON-REACTIVE 84055) HEPATITIS B CORE IgM (test code NON-REACTIVE = 4644) HEPATITIS B SURF AG (test code = NON-REACTIVE 2739) HEPATITIS C ANTIBODY (test code NON-REACTIVE = 4675) INTERPRETATION HEPATITIS A: (NOTE) (test code = 2552) INTERPRETATION HEPATITIS B: (NOTE) (test code = 69804) INTERPRETATION HEPATITIS C: (NOTE) (test code = 02195) ACUTE HEPATITIS [id number] 00:00:00 Test Item Value Reference Range Interpretation Comments HEPATITIS A IgM (test code = NON-REACTIVE 56930) HEPATITIS B CORE IgM (test code NON-REACTIVE = 4644) HEPATITIS B SURF AG (test code = NON-REACTIVE 2739) HEPATITIS C ANTIBODY (test code NON-REACTIVE = 4675) INTERPRETATION HEPATITIS A: (NOTE) (test code = 2552) INTERPRETATION HEPATITIS B: (NOTE) (test code = 56387) INTERPRETATION HEPATITIS C: (NOTE) (test code = 80763) [id number] 00:00:00 Test Item Value Reference Range Interpretation Comments AMYLASE (test code = 2205) 32 U/L [id number] 00:00:00 Test Item Value Reference Range Interpretation Comments AMYLASE (test code = 2205) 32 U/L [id number] 00:00:00 Test Item Value Reference Range Interpretation Comments LIPASE (test code = 2058) 22 U/L [id number] 00:00:00 Test Item Value Reference Range Interpretation Comments LIPASE (test code = 2058) 22 U/L [id number] 00:00:00 Test Item Value Reference Range Interpretation Comments LIPASE (test code = 2058) 22 U/L COMPREHENSIVE METABOLIC [id number] 00:00:00 Test Item Value Reference Range Interpretation Comments GLUCOSE (test code = 2217) 128 MG/DL BUN (test code = 2208) 26 MG/DL CREATININE (test code = 2214) 0.92 MG/DL eGFR AMER. (test code 81 ML/MIN/1.73 = 59818) eGFR NON- AMER. (test 70 ML/MIN/1.73 code = 74282) CALC BUN/CREAT (test code = 28 RATIO [...] code = 2219) 29 U/L COMPREHENSIVE METABOLIC [id number] 00:00:00 Test Item Value Reference Range Interpretation Comments GLUCOSE (test code = 2217) 128 MG/DL BUN (test code = 2208) 26 MG/DL CREATININE (test code = 2214) 0.92 MG/DL eGFR AMER. (test code 81 ML/MIN/1.73 = 52914) eGFR NON- AMER. (test 70 ML/MIN/1.73 code = 05297) CALC BUN/CREAT (test code = 28 RATIO [...] code = 2219) 29 U/L ACUTE HEPATITIS [id number] 00:00:00 Test Item Value Reference Range Interpretation Comments HEPATITIS A IgM (test code = NON-REACTIVE 35285) HEPATITIS B CORE IgM (test code NON-REACTIVE = 4644) HEPATITIS B SURF AG (test code = NON-REACTIVE 2739) HEPATITIS C ANTIBODY (test code NON-REACTIVE = 4675) INTERPRETATION HEPATITIS A: (NOTE) (test code = 2552) INTERPRETATION HEPATITIS B: (NOTE) (test code = 01909) INTERPRETATION HEPATITIS C: (NOTE) (test code = 91239) ACUTE HEPATITIS [id number] 00:00:00 Test Item Value Reference Range Interpretation Comments HEPATITIS A IgM (test code = NON-REACTIVE 01228) HEPATITIS B CORE IgM (test code NON-REACTIVE = 4644) HEPATITIS B SURF AG (test code = NON-REACTIVE 2739) HEPATITIS C ANTIBODY (test code NON-REACTIVE = 4675) INTERPRETATION HEPATITIS A: (NOTE) (test code = 2552) INTERPRETATION HEPATITIS B: (NOTE) (test code = 24087) INTERPRETATION HEPATITIS C: (NOTE) (test code = 28789) [id number] 00:00:00 Test Item Value Reference Range Interpretation Comments AMYLASE (test code = 2205) 32 U/L [id number] 00:00:00 Test Item Value Reference Range Interpretation Comments AMYLASE (test code = 2205) 32 U/L [id number] 00:00:00 Test Item Value Reference Range Interpretation Comments LIPASE (test code = 2058) 22 U/L [id number] 00:00:00 Test Item Value Reference Range Interpretation Comments LIPASE (test code = 2058) 22 U/L [id number] 00:00:00 Test Item Value Reference Range Interpretation Comments LIPASE (test code = 2058) 22 U/L COMPREHENSIVE METABOLIC [id number] 00:00:00 Test Item Value Reference Range Interpretation Comments GLUCOSE (test code = 2217) 128 MG/DL BUN (test code = 2208) 26 MG/DL CREATININE (test code = 2214) 0.92 MG/DL eGFR AMER. (test code 81 ML/MIN/1.73 = 64255) eGFR NON- AMER. (test 70 ML/MIN/1.73 code = 54656) CALC BUN/CREAT (test code = 28 RATIO [...] code = 2219) 29 U/L ACUTE HEPATITIS [id number] 00:00:00 Test Item Value Reference Range Interpretation Comments HEPATITIS A IgM (test code = NON-REACTIVE 25815) HEPATITIS B CORE IgM (test code NON-REACTIVE = 3644) HEPATITIS B SURF AG (test code = NON-REACTIVE 2202) HEPATITIS C ANTIBODY (test code NON-REACTIVE = 7220) INTERPRETATION HEPATITIS A: (NOTE) (test code = 2552) INTERPRETATION HEPATITIS B: (NOTE) (test code = 66815) INTERPRETATION HEPATITIS C: (NOTE) (test code = 25327) [id number] 00:00:00 Test Item Value Reference Range Interpretation Comments AMYLASE (test code = 2205) 32 U/L [id number] 00:00:00 Test Item Value Reference Range Interpretation Comments LIPASE (test code = 2057) 22 U/L [id number] 00:00:00 Test Item Value Reference Range Interpretation Comments LIPASE (test code = 2057) 22 U/L COMPREHENSIVE METABOLIC [id number] 00:00:00 Test Item Value Reference Range Interpretation Comments GLUCOSE (test code = 2217) 128 MG/DL BUN (test code = 2208) 26 MG/DL CREATININE (test code = 2214) 0.92 MG/DL eGFR AMER. (test code 81 ML/MIN/1.73 = 32425) eGFR NON- AMER. (test 70 ML/MIN/1.73 code = 18884) CALC BUN/CREAT (test code = 28 RATIO [...] code = 2219) 29 U/L COMPREHENSIVE METABOLIC [id number] 00:00:00 Test Item Value Reference Range Interpretation Comments GLUCOSE (test code = 2217) 128 MG/DL BUN (test code = 2208) 26 MG/DL CREATININE (test code = 2214) 0.92 MG/DL eGFR AMER. (test code 81 ML/MIN/1.73 = 23692) eGFR NON- AMER. (test 70 ML/MIN/1.73 code = 21586) CALC BUN/CREAT (test code = 28 RATIO [...] code = 2219) 29 U/L ACUTE HEPATITIS [id number] 00:00:00 Test Item Value Reference Range Interpretation Comments HEPATITIS A IgM (test code = NON-REACTIVE 30038) HEPATITIS B CORE IgM (test code NON-REACTIVE = 4644) HEPATITIS B SURF AG (test code = NON-REACTIVE 2739) HEPATITIS C ANTIBODY (test code NON-REACTIVE = 4675) INTERPRETATION HEPATITIS A: (NOTE) (test code = 2552) INTERPRETATION HEPATITIS B: (NOTE) (test code = 59447) INTERPRETATION HEPATITIS C: (NOTE) (test code = 26917) ACUTE HEPATITIS [id number] 00:00:00 Test Item Value Reference Range Interpretation Comments HEPATITIS A IgM (test code = NON-REACTIVE 96334) HEPATITIS B CORE IgM (test code NON-REACTIVE = 4644) HEPATITIS B SURF AG (test code = NON-REACTIVE 2739) HEPATITIS C ANTIBODY (test code NON-REACTIVE = 4675) INTERPRETATION HEPATITIS A: (NOTE) (test code = 2552) INTERPRETATION HEPATITIS B: (NOTE) (test code = 17590) INTERPRETATION HEPATITIS C: (NOTE) (test code = 82995) [id number] 00:00:00 Test Item Value Reference Range Interpretation Comments AMYLASE (test code = 2205) 32 U/L [id number] 00:00:00 Test Item Value Reference Range Interpretation Comments AMYLASE (test code = 2205) 32 U/L [id number] 00:00:00 Test Item Value Reference Range Interpretation Comments LIPASE (test code = 2058) 22 U/L [id number] 00:00:00 Test Item Value Reference Range Interpretation Comments LIPASE (test code = 2058) 22 U/L [id number] 00:00:00 Test Item Value Reference Range Interpretation Comments LIPASE (test code = 2058) 22 U/L [id number] 00:00:00 Test Item Value Reference Range Interpretation Comments TSH, THIRD GENERATION (test code 4.890 UIU/ML = 2821) [id number] 00:00:00 Test Item Value Reference Range Interpretation Comments TSH, THIRD GENERATION (test code 4.890 UIU/ML = 2821) [id number] 00:00:00 Test Item Value Reference Range Interpretation Comments TSH, THIRD GENERATION (test code 4.890 UIU/ML = 2821) COMPREHENSIVE METABOLIC [id number] 00:00:00 Test Item Value Reference Range Interpretation Comments GLUCOSE (test code = 2217) 121 MG/DL BUN (test code = 2208) 40 MG/DL CREATININE (test code = 2214) 1.48 MG/DL eGFR AMER. (test code 45 ML/MIN/1.73 = 82209) eGFR NON- AMER. (test 39 ML/MIN/1.73 code = 20770) CALC BUN/CREAT (test code = 27 RATIO [...] code = 2219) 20 U/L COMPREHENSIVE METABOLIC [id number] 00:00:00 Test Item Value Reference Range Interpretation Comments GLUCOSE (test code = 2217) 121 MG/DL BUN (test code = 2208) 40 MG/DL CREATININE (test code = 2214) 1.48 MG/DL eGFR AMER. (test code 45 ML/MIN/1.73 = 96738) eGFR NON- AMER. (test 39 ML/MIN/1.73 code = 86778) CALC BUN/CREAT (test code = 27 RATIO [...] ALT (test code = 2219) 20 U/L [id number] 00:00:00 Test Item Value Reference Range Interpretation Comments TSH, THIRD GENERATION (test code 4.890 UIU/ML = 2821) [id number] 00:00:00 Test Item Value Reference Range Interpretation Comments TSH, THIRD GENERATION (test code 4.890 UIU/ML = 2821) [id number] 00:00:00 Test Item Value Reference Range Interpretation Comments TSH, THIRD GENERATION (test code 4.890 UIU/ML = 2821) COMPREHENSIVE METABOLIC [id number] 00:00:00 Test Item Value Reference Range Interpretation Comments GLUCOSE (test code = 2217) 121 MG/DL BUN (test code = 2208) 40 MG/DL CREATININE (test code = 2214) 1.48 MG/DL eGFR AMER. (test code 45 ML/MIN/1.73 = 01584) eGFR NON- AMER. (test 39 ML/MIN/1.73 code = 34116) CALC BUN/CREAT (test code = 27 RATIO [...] code = 2219) 20 U/L COMPREHENSIVE METABOLIC [id number] 00:00:00 Test Item Value Reference Range Interpretation Comments GLUCOSE (test code = 2217) 121 MG/DL BUN (test code = 2208) 40 MG/DL CREATININE (test code = 2214) 1.48 MG/DL eGFR AMER. (test code 45 ML/MIN/1.73 = 11191) eGFR NON- AMER. (test 39 ML/MIN/1.73 code = 47038) CALC BUN/CREAT (test code = 27 RATIO [...] ALT (test code = 2219) 20 U/L [id number] 00:00:00 Test Item Value Reference Range Interpretation Comments TSH, THIRD GENERATION (test code 4.890 UIU/ML = 2821) [id number] 00:00:00 Test Item Value Reference Range Interpretation Comments TSH, THIRD GENERATION (test code 4.890 UIU/ML = 2821) COMPREHENSIVE METABOLIC [id number] 00:00:00 Test Item Value Reference Range Interpretation Comments GLUCOSE (test code = 2217) 121 MG/DL BUN (test code = 2208) 40 MG/DL CREATININE (test code = 2214) 1.48 MG/DL eGFR AMER. (test code 45 ML/MIN/1.73 = 05313) eGFR NON- AMER. (test 39 ML/MIN/1.73 code = 24317) CALC BUN/CREAT (test code = 27 RATIO [...] ALT (test code = 2219) 20 U/L [id number] 00:00:00 Test Item Value Reference Range Interpretation Comments TSH, THIRD GENERATION (test code 4.890 UIU/ML = 2821) [id number] 00:00:00 Test Item Value Reference Range Interpretation Comments TSH, THIRD GENERATION (test code 4.890 UIU/ML = 2821) [id number] 00:00:00 Test Item Value Reference Range Interpretation Comments TSH, THIRD GENERATION (test code 4.890 UIU/ML = 2821) COMPREHENSIVE METABOLIC [id number] 00:00:00 Test Item Value Reference Range Interpretation Comments GLUCOSE (test code = 2217) 121 MG/DL BUN (test code = 2208) 40 MG/DL CREATININE (test code = 2214) 1.48 MG/DL eGFR AMER. (test code 45 ML/MIN/1.73 = 68741) eGFR NON- AMER. (test 39 ML/MIN/1.73 code = 00164) CALC BUN/CREAT (test code = 27 RATIO [...] code = 2219) 20 U/L COMPREHENSIVE METABOLIC [id number] 00:00:00 Test Item Value Reference Range Interpretation Comments GLUCOSE (test code = 2217) 121 MG/DL BUN (test code = 2208) 40 MG/DL CREATININE (test code = 2214) 1.48 MG/DL eGFR AMER. (test code 45 ML/MIN/1.73 = 97139) eGFR NON- AMER. (test 39 ML/MIN/1.73 code = 73925) CALC BUN/CREAT (test code = 27 RATIO [...] (test code = 2219) 20 U/L LIPID [id number] 00:00:00 Test Item Value Reference Range Interpretation Comments CHOLESTEROL (test code = 2210) 261 MG/DL TRIGLYCERIDES (test code = 2232) 165 MG/DL HDL CHOLESTEROL (test code = 2220) 58 MG/DL CALC LDL CHOL (test code = 2237) 170 MG/DL RISK RATIO LDL/HDL (test code = 2.93 RATIO 2238) LIPID [id number] 00:00:00 Test Item Value Reference Range Interpretation Comments CHOLESTEROL (test code = 2210) 261 MG/DL TRIGLYCERIDES (test code = 2232) 165 MG/DL HDL CHOLESTEROL (test code = 2220) 58 MG/DL CALC LDL CHOL (test code = 2237) 170 MG/DL RISK RATIO LDL/HDL (test code = 2.93 RATIO 2238) CBC W/AUTO [id number] 00:00:00 Test Item Value Reference Range Interpretation [...] code = 1015) 378 K/UL CBC W/AUTO [id number] 00:00:00 Test Item Value Reference Range Interpretation [...] code = 1015) 378 K/UL CBC W/AUTO [id number] 00:00:00 Test Item Value Reference Range Interpretation [...] (test code = 1015) 378 K/UL HEMOGLOBIN [id number] 00:00:00 Test Item Value Reference Range Interpretation Comments HEMOGLOBIN A1c (test code = 75830) 6.4 % HEMOGLOBIN [id number] 00:00:00 Test Item Value Reference Range Interpretation Comments HEMOGLOBIN A1c (test code = 28976) 6.4 % HEMOGLOBIN [id number] 00:00:00 Test Item Value Reference Range Interpretation Comments HEMOGLOBIN A1c (test code = 17035) 6.4 % [id number] 00:00:00 Test Item Value Reference Range Interpretation Comments TSH (test code = 2821) 5.290 UIU/ML [id number] 00:00:00 Test Item Value Reference Range Interpretation Comments TSH (test code = 2821) 5.290 UIU/ML [id number] 00:00:00 Test Item Value Reference Range Interpretation Comments TSH (test code = 2821) 5.290 UIU/ML LIPID [id number] 00:00:00 Test Item Value Reference Range Interpretation Comments CHOLESTEROL (test code = 2210) 261 MG/DL TRIGLYCERIDES (test code = 2232) 165 MG/DL HDL CHOLESTEROL (test code = 2220) 58 MG/DL CALC LDL CHOL (test code = 2237) 170 MG/DL RISK RATIO LDL/HDL (test code = 2.93 RATIO 2238) LIPID [id number] 00:00:00 Test Item Value Reference Range Interpretation Comments CHOLESTEROL (test code = 2210) 261 MG/DL TRIGLYCERIDES (test code = 2232) 165 MG/DL HDL CHOLESTEROL (test code = 2220) 58 MG/DL CALC LDL CHOL (test code = 2237) 170 MG/DL RISK RATIO LDL/HDL (test code = 2.93 RATIO 2238) CBC W/AUTO [id number] 00:00:00 Test Item Value Reference Range Interpretation [...] code = 1015) 378 K/UL CBC W/AUTO [id number] 00:00:00 Test Item Value Reference Range Interpretation [...] code = 1015) 378 K/UL CBC W/AUTO [id number] 00:00:00 Test Item Value Reference Range Interpretation [...] (test code = 1015) 378 K/UL HEMOGLOBIN [id number] 00:00:00 Test Item Value Reference Range Interpretation Comments HEMOGLOBIN A1c (test code = 91196) 6.4 % HEMOGLOBIN [id number] 00:00:00 Test Item Value Reference Range Interpretation Comments HEMOGLOBIN A1c (test code = 45765) 6.4 % HEMOGLOBIN [id number] 00:00:00 Test Item Value Reference Range Interpretation Comments HEMOGLOBIN A1c (test code = 17663) 6.4 % [id number] 00:00:00 Test Item Value Reference Range Interpretation Comments TSH (test code = 2821) 5.290 UIU/ML [id number] 00:00:00 Test Item Value Reference Range Interpretation Comments TSH (test code = 2821) 5.290 UIU/ML [id number] 00:00:00 Test Item Value Reference Range Interpretation Comments TSH (test code = 2821) 5.290 UIU/ML LIPID [id number] 00:00:00 Test Item Value Reference Range Interpretation Comments CHOLESTEROL (test code = 2210) 261 MG/DL TRIGLYCERIDES (test code = 2232) 165 MG/DL HDL CHOLESTEROL (test code = 2220) 58 MG/DL CALC LDL CHOL (test code = 2237) 170 MG/DL RISK RATIO LDL/HDL (test code = 2.93 RATIO 2238) CBC W/AUTO [id number] 00:00:00 Test Item Value Reference Range Interpretation [...] code = 1015) 378 K/UL CBC W/AUTO [id number] 00:00:00 Test Item Value Reference Range Interpretation [...] (test code = 1015) 378 K/UL HEMOGLOBIN [id number] 00:00:00 Test Item Value Reference Range Interpretation Comments HEMOGLOBIN A1c (test code = 25173) 6.4 % HEMOGLOBIN [id number] 00:00:00 Test Item Value Reference Range Interpretation Comments HEMOGLOBIN A1c (test code = 25151) 6.4 % [id number] 00:00:00 Test Item Value Reference Range Interpretation Comments TSH (test code = 2821) 5.290 UIU/ML [id number] 00:00:00 Test Item Value Reference Range Interpretation Comments TSH (test code = 2821) 5.290 UIU/ML LIPID [id number] 00:00:00 Test Item Value Reference Range Interpretation Comments CHOLESTEROL (test code = 2210) 261 MG/DL TRIGLYCERIDES (test code = 2232) 165 MG/DL HDL CHOLESTEROL (test code = 2220) 58 MG/DL CALC LDL CHOL (test code = 2237) 170 MG/DL RISK RATIO LDL/HDL (test code = 2.93 RATIO 2238) LIPID [id number] 00:00:00 Test Item Value Reference Range Interpretation Comments CHOLESTEROL (test code = 2210) 261 MG/DL TRIGLYCERIDES (test code = 2232) 165 MG/DL HDL CHOLESTEROL (test code = 2220) 58 MG/DL CALC LDL CHOL (test code = 2237) 170 MG/DL RISK RATIO LDL/HDL (test code = 2.93 RATIO 2238) CBC W/AUTO [id number] 00:00:00 Test Item Value Reference Range Interpretation [...] code = 1015) 378 K/UL CBC W/AUTO [id number] 00:00:00 Test Item Value Reference Range Interpretation [...] code = 1015) 378 K/UL CBC W/AUTO [id number] 00:00:00 Test Item Value Reference Range Interpretation [...] (test code = 1015) 378 K/UL HEMOGLOBIN [id number] 00:00:00 Test Item Value Reference Range Interpretation Comments HEMOGLOBIN A1c (test code = 22859) 6.4 % HEMOGLOBIN [id number] 00:00:00 Test Item Value Reference Range Interpretation Comments HEMOGLOBIN A1c (test code = 94837) 6.4 % HEMOGLOBIN [id number] 00:00:00 Test Item Value Reference Range Interpretation Comments HEMOGLOBIN A1c (test code = 31540) 6.4 % [id number] 00:00:00 Test Item Value Reference Range Interpretation Comments TSH (test code = 2821) 5.290 UIU/ML [id number] 00:00:00 Test Item Value Reference Range Interpretation Comments TSH (test code = 2821) 5.290 UIU/ML [id number] 00:00:00 Test Item Value Reference Range Interpretation [...] code = 2821) 1.030 UIU/ML COMPREHENSIVE METABOLIC [id number] 00:00:00 Test Item Value Reference Range Interpretation Comments GLUCOSE (test code = 2217) 106 MG/DL BUN (test code = 2208) 23 MG/DL CREATININE (test code = 2214) 0.66 MG/DL eGFR AMER. (test code 114 ML/MIN/1.73 = 78375) eGFR NON- AMER. (test 99 ML/MIN/1.73 code = 41301) CALC BUN/CREAT (test code = 35 RATIO [...] code = 2219) 31 U/L COMPREHENSIVE METABOLIC [id number] 00:00:00 Test Item Value Reference Range Interpretation Comments GLUCOSE (test code = 2217) 106 MG/DL BUN (test code = 2208) 23 MG/DL CREATININE (test code = 2214) 0.66 MG/DL eGFR AMER. (test code 114 ML/MIN/1.73 = 68523) eGFR NON- AMER. (test 99 ML/MIN/1.73 code = 75274) CALC BUN/CREAT (test code = 35 RATIO [...] code = 2821) 0.335 UIU/ML COMPREHENSIVE METABOLIC [id number] 00:00:00 Test Item Value Reference Range Interpretation Comments GLUCOSE (test code = 2217) 106 MG/DL BUN (test code = 2208) 23 MG/DL CREATININE (test code = 2214) 0.66 MG/DL eGFR AMER. (test code 114 ML/MIN/1.73 = 86425) eGFR NON- AMER. (test 99 ML/MIN/1.73 code = 82327) CALC BUN/CREAT (test code = 35 RATIO [...] code = 2219) 31 U/L COMPREHENSIVE METABOLIC [id number] 00:00:00 Test Item Value Reference Range Interpretation Comments GLUCOSE (test code = 2217) 106 MG/DL BUN (test code = 2208) 23 MG/DL CREATININE (test code = 2214) 0.66 MG/DL eGFR AMER. (test code 114 ML/MIN/1.73 = 30590) eGFR NON- AMER. (test 99 ML/MIN/1.73 code = 17048) CALC BUN/CREAT (test code = 35 RATIO [...] = 0.2 MG/DL 7) ALKALINE PHOSPHATASE (test 101 U/L code = [...] code = 2821) 0.335 UIU/ML COMPREHENSIVE METABOLIC [id number] 00:00:00 Test Item Value Reference Range Interpretation Comments GLUCOSE (test code = 2217) 106 MG/DL BUN (test code = 2208) 23 MG/DL CREATININE (test code = 2214) 0.66 MG/DL eGFR AMER. (test code 114 ML/MIN/1.73 = 35926) eGFR NON- AMER. (test 99 ML/MIN/1.73 code = 04106) CALC BUN/CREAT (test code = 35 RATIO [...] code = 2821) 0.335 UIU/ML COMPREHENSIVE METABOLIC [id number] 00:00:00 Test Item Value Reference Range Interpretation Comments GLUCOSE (test code = 2217) 106 MG/DL BUN (test code = 2208) 23 MG/DL CREATININE (test code = 2214) 0.66 MG/DL eGFR AMER. (test code 114 ML/MIN/1.73 = 24079) eGFR NON- AMER. (test 99 ML/MIN/1.73 code = 21583) CALC BUN/CREAT (test code = 35 RATIO [...] code = 2219) 31 U/L COMPREHENSIVE METABOLIC [id number] 00:00:00 Test Item Value Reference Range Interpretation Comments GLUCOSE (test code = 2217) 106 MG/DL BUN (test code = 2208) 23 MG/DL CREATININE (test code = 2214) 0.66 MG/DL eGFR AMER. (test code 114 ML/MIN/1.73 = 97855) eGFR NON- AMER. (test 99 ML/MIN/1.73 code = 46427) CALC BUN/CREAT (test code = 35 RATIO [...] code = 2821) 0.335 UIU/ML COMPREHENSIVE METABOLIC [id number] 00:00:00 Test Item Value Reference Range Interpretation Comments GLUCOSE (test code = 2217) 103 MG/DL BUN (test code = 2208) 15 MG/DL CREATININE (test code = 2214) 0.77 MG/DL eGFR AMER. (test code 101 ML/MIN/1.73 = 34814) eGFR NON- AMER. (test 87 ML/MIN/1.73 code = 57886) CALC BUN/CREAT (test code = 19 RATIO [...] code = 2219) 24 U/L COMPREHENSIVE METABOLIC [id number] 00:00:00 Test Item Value Reference Range Interpretation Comments GLUCOSE (test code = 2217) 103 MG/DL BUN (test code = 2208) 15 MG/DL CREATININE (test code = 2214) 0.77 MG/DL eGFR AMER. (test code 101 ML/MIN/1.73 = 72757) eGFR NON- AMER. (test 87 ML/MIN/1.73 code = 75863) CALC BUN/CREAT (test code = 19 RATIO [...] code = 2821) 0.424 UIU/ML COMPREHENSIVE METABOLIC [id number] 00:00:00 Test Item Value Reference Range Interpretation Comments GLUCOSE (test code = 2217) 103 MG/DL BUN (test code = 2208) 15 MG/DL CREATININE (test code = 2214) 0.77 MG/DL eGFR AMER. (test code 101 ML/MIN/1.73 = 93957) eGFR NON- AMER. (test 87 ML/MIN/1.73 code = 07031) CALC BUN/CREAT (test code = 19 RATIO [...] code = 2219) 24 U/L COMPREHENSIVE METABOLIC [id number] 00:00:00 Test Item Value Reference Range Interpretation Comments GLUCOSE (test code = 2217) 103 MG/DL BUN (test code = 2208) 15 MG/DL CREATININE (test code = 2214) 0.77 MG/DL eGFR AMER. (test code 101 ML/MIN/1.73 = 67871) eGFR NON- AMER. (test 87 ML/MIN/1.73 code = 22421) CALC BUN/CREAT (test code = 19 RATIO [...] code = 2821) 0.424 UIU/ML COMPREHENSIVE METABOLIC [id number] 00:00:00 Test Item Value Reference Range Interpretation Comments GLUCOSE (test code = 2217) 103 MG/DL BUN (test code = 2208) 15 MG/DL CREATININE (test code = 2214) 0.77 MG/DL eGFR AMER. (test code 101 ML/MIN/1.73 = 07687) eGFR NON- AMER. (test 87 ML/MIN/1.73 code = 86845) CALC BUN/CREAT (test code = 19 RATIO [...] code = 2821) 0.424 UIU/ML COMPREHENSIVE METABOLIC [id number] 00:00:00 Test Item Value Reference Range Interpretation Comments GLUCOSE (test code = 2217) 103 MG/DL BUN (test code = 2208) 15 MG/DL CREATININE (test code = 2214) 0.77 MG/DL eGFR AMER. (test code 101 ML/MIN/1.73 = 51784) eGFR NON- AMER. (test 87 ML/MIN/1.73 code = 80976) CALC BUN/CREAT (test code = 19 RATIO [...] code = 2219) 24 U/L COMPREHENSIVE METABOLIC [id number] 00:00:00 Test Item Value Reference Range Interpretation Comments GLUCOSE (test code = 2217) 103 MG/DL BUN (test code = 2208) 15 MG/DL CREATININE (test code = 2214) 0.77 MG/DL eGFR AMER. (test code 101 ML/MIN/1.73 = 82280) eGFR NON- AMER. (test 87 ML/MIN/1.73 code = 77352) CALC BUN/CREAT (test code = 19 RATIO [...] (test code = 2821) 0.424 UIU/ML CULTURE, [id number] 00:00:00 Test Item Value Reference Range Interpretation Comments CULTURE, URINE (test SPECIMEN NUMBER: code = 75622) [id number] CULTURE, [id number] 00:00:00 Test Item Value Reference Range Interpretation Comments CULTURE, URINE (test SPECIMEN NUMBER: code = 92976) [id number] CULTURE, [id number] 00:00:00 Test Item Value Reference Range Interpretation Comments CULTURE, URINE (test SPECIMEN NUMBER: code = 96196) [id number] CULTURE, [id number] 00:00:00 Test Item Value Reference Range Interpretation Comments CULTURE, URINE (test SPECIMEN NUMBER: code = 74212) [id number] CULTURE, [id number] 00:00:00 Test Item Value Reference Range Interpretation Comments CULTURE, URINE (test SPECIMEN NUMBER: code = 17554) [id number] CULTURE, [id number] 00:00:00 Test Item Value Reference Range Interpretation Comments CULTURE, URINE (test SPECIMEN NUMBER: code = 74321) [id number] CULTURE, [id number] 00:00:00 Test Item Value Reference Range Interpretation Comments CULTURE, URINE (test SPECIMEN NUMBER: code = 12213) [id number] CULTURE, [id number] 00:00:00 Test Item Value Reference Range Interpretation Comments CULTURE, URINE (test SPECIMEN NUMBER: code = 56523) [id number] CULTURE, [id number] 00:00:00 Test Item Value Reference Range Interpretation Comments CULTURE, URINE (test SPECIMEN NUMBER: code = 50728) [id number] CULTURE, [id number] 00:00:00 Test Item Value Reference Range Interpretation Comments CULTURE, URINE (test SPECIMEN NUMBER: code = 23212) [id number] CULTURE, [id number] 00:00:00 Test Item Value Reference Range Interpretation Comments CULTURE, URINE (test SPECIMEN NUMBER: code = 63513) [id number] CULTURE, [id number] 00:00:00 Test Item Value Reference Range Interpretation Comments CULTURE, URINE (test SPECIMEN NUMBER: code = 95371) [id number] CULTURE, [id number] 00:00:00 Test Item Value Reference Range Interpretation Comments CULTURE, URINE (test SPECIMEN NUMBER: code = 26898) [id number] CULTURE, [id number] 00:00:00 Test Item Value Reference Range Interpretation Comments CULTURE, URINE (test SPECIMEN NUMBER: code = 07627) [id number]
[2022-07-30] MEDS ORDERED: ONDANSETRON 4 MG (ODT) TAB ONE (10:22)
[2022-07-30 10:31] LABS: Absolute Lymphocytes (CBC) 2.2 K/uL (0.7-4.9); Lymphocytes % 25.7 % (15.3-44.8); MCV 92.6 fL (80-100); MPV 6.5 fL (7.6-11.3); RBC Red Blood Cell Count 3.99 M/uL (3.86-4.86)
[2022-07-30 10:56] LABS: Albumin 3.7 g/dL (3.4-5.0); Bilirubin Total 0.1 mg/dL (0.2-1.0); Magnesium 1.6 mg/dL (1.6-2.4); Potassium 3.5 mEq/L (3.5-5.1); Protein, Total 8.1 g/dL (6.4-8.2); Troponin High Sensitivity 7.4 pg/mL (<58.9)
--- NOTE | 2022-07-30 11:20 | ER ---
Nurse's Notes [facility] Name: Jaimie Amanda Age: 61 yrs Sex: Female : 1960 Arrival Date: 07/30/2022 Time: 09:41 Bed 2 Private MD: Diagnosis: Nausea with vomiting, unspecified Presentation: 07/30 09:42 Chief complaint: EMS states: pt was here yesterday stating not feeling well since kc6 Thursday and was d/c home for bronchitis. pt reports continued nausea, vomiting, and dizziness. Coronavirus screen: Vaccine status: Patient reports receiving the 2nd dose of the covid vaccine. At this time, the client does not indicate any symptoms associated with coronavirus-19. Ebola Screen: No symptoms or risks identified at this time. Initial Sepsis Screen: Does the patient meet any 2 criteria? No. Patient's initial sepsis screen is negative. Does the patient have a suspected source of infection? No. Patient's initial sepsis screen is negative. Risk Assessment: Do you want to hurt yourself or someone else? Patient reports no desire to harm self or others. Onset of symptoms was July 30, 2022. 09:42 Method Of Arrival: EMS: [facility] kc6 09:42 Acuity: ZHEN 3 kc6 Triage Assessment: 09:45 General: Appears in no apparent distress. uncomfortable, ill, Behavior is cooperative, kc6 appropriate for age, anxious. Pain: Complains of pain in abdomen Pain currently is 8 out of 10 on a pain scale. EENT: No signs and/or symptoms were reported regarding the EENT system. Neuro: Jorgensen Agitation-Sedation Scale (RASS): 0 - Alert and Calm Level of Consciousness is awake, alert, obeys commands, Oriented to person, place, time, situation, Appropriate for age Reports dizziness. Cardiovascular: Capillary refill < 3 seconds. Respiratory: Airway is patent Trachea midline Respiratory effort is even, unlabored, Respiratory pattern is regular, symmetrical. GI: Abdomen is round non-distended, Bowel sounds present X 4 quads. Reports nausea, vomiting, Patient currently denies diarrhea. : No signs and/or symptoms were reported regarding the genitourinary system. Derm: No signs and/or symptoms reported regarding the dermatologic system. Skin is intact, Skin is pink, warm \T\ dry. Musculoskeletal: No signs and/or symptoms reported regarding the musculoskeletal system. Circulation, motion, and sensation intact. Capillary refill < 3 seconds, Range of motion: intact in all extremities. Historical: - Allergies: 09:45 hydrochlorothiazide; kc6 - PMHx: 09:45 Anxiety; Chronic Abdominal Pain; Hypertensive disorder; Hypothyroidism; low NA; NIDDM; kc6 - PSHx: 09:45 Thyroidectomy; kc6 - Immunization history:: Client reports receiving the 2nd dose of the Covid vaccine, Flu vaccine is up to date. - Social history:: Smoking status: Patient reports the use of cigarette tobacco products, smokes one pack cigarettes per day. - Family history:: not pertinent. Screenin:46 [facility] ED Fall Risk Assessment (Adult) History of falling in the last 3 months, 6 including since admission No falls in past 3 months (0 pts) Confusion or Disorientation No (0 pts) Intoxicated or Sedated No (0 pts) Impaired Gait No (0 pts) Mobility Assist Device Used No (0 pt) Altered Elimination No (0 pt) Score/Fall Risk Level 0 - 2 = Low Risk Oriented to surroundings, Maintained a safe environment, Educated pt \T\ family on fall prevention, incl call for assistance when getting out of bed, Assessed \T\ reinforced patient's understanding of fall precautions, Hourly rounding (assess needs \T\ fall precautionary measures) done. Abuse screen: Denies threats or abuse. Denies injuries from another. Nutritional screening: No deficits noted. Tuberculosis screening: No symptoms or risk factors identified. Assessment: 09:46 Reassessment: please see triage assessment. [facility] 10:46 Reassessment: Patient appears in no apparent distress at this time. No changes from 6 previously documented assessment. Patient and/or family updated on plan of care and expected duration. Pain level reassessed. Patient is alert, oriented x 3, equal unlabored respirations, skin warm/dry/pink. 11:35 Reassessment: DC HOME AMBULATORY WITH FAMILY. bp Vital Signs: 09:42 BP 212 / 101; Pulse 86; Resp 18 S; Temp 97.6(O); Pulse Ox 98% on R/A; Weight 68.04 kg kc6 (R); Height 5 ft. 7 in. (R); Pain 8/10; 11:02 BP 199 / 91; Pulse 85; Resp 18 S; Pulse Ox 100% on R/A; kc6 09:42 Body Mass Index 23.49 (68.04 kg, 170.18 cm) kc6 09:42 Pain Scale: Adult kc6 ED Course: 09:42 Patient arrived in ED. kc6 09:42 Jey White MD is Attending Physician. rt 09:42 Arm band placed on Patient placed in an exam room, on a stretcher. ll1 09:45 Triage completed. kc6 09:46 Patient has correct armband on for positive identification. Bed in low position. Call kc6 light in reach. Side rails up X2. 10:16 Kelly Beavers, RN is Primary Nurse. kc6 10:22 Troponin High Sensitivity Sent. em1 10:23 Magnesium Sent. em1 10:23 Lipase Sent. em1 10:23 CMP Sent. em1 10:23 CBC with Diff Sent. em1 10:23 Initial lab(s) drawn, by me, sent to lab. Inserted saline lock: 22 gauge in right em1 wrist, using aseptic technique. Blood collected. 11:35 No provider procedures requiring assistance completed. IV discontinued, intact, bp bleeding controlled, No redness/swelling at site. Pressure dressing applied. Administered Medications: 10:16 Drug: Ondansetron PO 4 mg Route: PO; 6 11:03 Follow up: Response: No adverse reaction; Nausea is decreased 6 Medication: 11:35 VIS not applicable for this client. bp Outcome: 11:20 Discharge ordered by . rt 11:35 Discharged to home ambulatory, with family. bp 11:35 Condition: stable 11:35 Discharge instructions given to patient, Instructed on discharge instructions, follow up and referral plans. medication usage, Demonstrated understanding of instructions, follow-up care, medications, Prescriptions given X 1. 11:36 Patient left the ED. bp Signatures: Agustin Marley em1 Sadiq Rosales RN RN bp Mikhail Otero RN RN 1 Kelly Beavers RN RN 6 Jey White MD MD rt
--- NOTE | 2022-07-30 11:21 | EDPHYS ---
Physician Documentation [facility] Name: Jaimie Amanda Age: 61 yrs Sex: Female : 1960 Arrival Date: 07/30/2022 Time: 09:41 Bed 2 Private MD: ED Physician Jey White HPI: 07/30 10:49 This 61 yrs old Female presents to ER via EMS with complaints of Nausea/Vomiting, rt Dizziness. 10:49 Patient was recently mid to the hospital for nausea, vomiting, altered mental status. rt She left AGAINST MEDICAL ADVICE yesterday. Patient states that since discharge, she has felt poorly with nausea and vomiting being her primary complaints. She denies other acute complaints at this time. Symptoms are moderate severity, no other aggravating or alleviating factors.. Historical: - Allergies: 09:45 hydrochlorothiazide; kc6 - PMHx: 09:45 Anxiety; Chronic Abdominal Pain; Hypertensive disorder; Hypothyroidism; low NA; NIDDM; kc6 - PSHx: 09:45 Thyroidectomy; kc6 - Immunization history:: Client reports receiving the 2nd dose of the Covid vaccine, Flu vaccine is up to date. - Social history:: Smoking status: Patient reports the use of cigarette tobacco products, smokes one pack cigarettes per day. - Family history:: not pertinent. ROS: 10:49 Constitutional: Negative for fever, chills, and weight loss, Cardiovascular: Negative rt for chest pain, palpitations, and edema, Respiratory: Negative for shortness of breath, cough, wheezing, and pleuritic chest pain, MS/Extremity: Negative for injury and deformity, Skin: Negative for injury, rash, and discoloration, Neuro: Negative for headache, weakness, numbness, tingling, and seizure, Psych: Negative for depression, anxiety, suicide ideation, homicidal ideation, and hallucinations. 10:49 Abdomen/GI: Positive for nausea and vomiting, Negative for diarrhea. Exam: 10:49 Constitutional: This is a well developed, well nourished patient who is awake, alert, rt and in no acute distress. Head/Face: Normocephalic, atraumatic. Neck: Trachea midline, no thyromegaly or masses palpated, and no cervical lymphadenopathy. Supple, full range of motion without nuchal rigidity, or vertebral point tenderness. No Meningismus. Chest/axilla: Normal chest wall appearance and motion. Nontender with no deformity. No lesions are appreciated. Cardiovascular: Regular rate and rhythm with a normal S1 and S2. No gallops, murmurs, or rubs. Normal PMI, no JVD. No pulse deficits. Respiratory: Lungs have equal breath sounds bilaterally, clear to auscultation and percussion. No rales, rhonchi or wheezes noted. No increased work of breathing, no retractions or nasal flaring. Skin: Warm, dry with normal turgor. Normal color with no rashes, no lesions, and no evidence of cellulitis. MS/ Extremity: Pulses equal, no cyanosis. Neurovascular intact. Full, normal range of motion. Neuro: Awake and alert, GCS 15, oriented to person, place, time, and situation. Cranial nerves II-XII grossly intact. Motor strength 5/5 in all extremities. Sensory grossly intact. Cerebellar exam normal. Normal gait. Psych: Awake, alert, with orientation to person, place and time. Behavior, mood, and affect are within normal limits. 10:49 ECG was reviewed by the Attending Physician. 10:49 Abdomen/GI: Mild tenderness diffusely without focality. No rebound, guarding, distention. Vital Signs: 09:42 BP 212 / 101; Pulse 86; Resp 18 S; Temp 97.6(O); Pulse Ox 98% on R/A; Weight 68.04 kg kc6 (R); Height 5 ft. 7 in. (R); Pain 8/10; 11:02 BP 199 / 91; Pulse 85; Resp 18 S; Pulse Ox 100% on R/A; kc6 09:42 Body Mass Index 23.49 (68.04 kg, 170.18 cm) kc6 09:42 Pain Scale: Adult kc6 MDM: 10:00 Patient medically screened. rt 11:24 Differential diagnosis: Nausea vomiting, electrolyte disturbance, pancreatitis. Data rt reviewed: vital signs, nurses notes. Consideration of Admission/Observation Escalation of care including admission/observation considered. Patient states that the symptoms are better, she is at her baseline mental status, stable labs, benign abdominal examination, patient has no indications for admission to the hospital at this time.. I considered the following discharge prescriptions or medication management in the emergency department Medications were administered in the Emergency Department. See MAR. Test considered but Not performed: CT: Benign abdominal examination, stable labs, CT scan not indicated.. Care significantly affected by the following chronic conditions: Hyponatremia, anxiety, hypertension. Counseling: I had a detailed discussion with the patient and/or guardian regarding: the historical points, exam findings, and any diagnostic results supporting the discharge/admit diagnosis, the presence of at least one elevated blood pressure reading (>120/80) during this emergency department visit, lab results, the need for outpatient follow up. 07/30 10:04 Order name: CBC with Diff; Complete Time: 11:04 rt 07/30 10:04 Order name: CMP; Complete Time: 11: rt 07/30 10:04 Order name: Lipase; Complete Time: : rt 07/30 10:04 Order name: Magnesium; Complete Time: : rt 07/30 10:04 Order name: Troponin High Sensitivity; Complete Time: 11: rt 07/30 10:04 Order name: EKG; Complete Time: 10: rt 07/30 10:04 Order name: EKG - Nurse/Tech; Complete Time: 10:28 rt EC:49 Rate is 80 beats/min. Rhythm is regular, Normal Sinus Rhythm with No ectopy. QRS [place] rt is Normal. ID interval is normal. QRS interval is normal. QT interval is normal. No Q waves. Clinical impression: NSR w/ Non-specific ST/T Changes. Interpreted by me. Administered Medications: 10:16 Drug: Ondansetron PO 4 mg Route: PO; kc6 11:03 Follow up: Response: No adverse reaction; Nausea is decreased kc6 Disposition Summary: 07/30/22 11:20 Discharge Ordered Location: Home rt Problem: an ongoing problem rt Symptoms: are resolved rt Condition: Stable rt Diagnosis - Nausea with vomiting, unspecified rt Followup: rt - With: Private Physician - When: 2 - 3 days - Reason: Discharge Instructions: - Discharge Summary Sheet rt - Nausea and Vomiting, Adult rt Forms: - Medication Reconciliation Form rt - Thank You Letter rt - Antibiotic Education rt - Prescription Opioid Use rt Prescriptions: - ondansetron 4 mg Oral Tablet,disintegrating - take 1 tablet by ORAL route every 6 hours; 18 tablet; Refills: 0, Product rt Selection Permitted Signatures: Dispatcher [employer] Kelly Engel RN RN kc6 Jey White MD MD rt
[2022-07-30 11:48] VITALS: TEMP 97.6
[2022-07-30 11:55] VITALS: BP 199/91; O2SAT 100
--- NOTE | 2022-07-31 05:35 | EKG ---
Test Date: 2022-07-30 Test Time: 10:21:46 Glass Glazier: XU MEASUREMENT RESULTS: Intervals: Rate: 80 GA: 184 QRSD: 86 QT: 390 QTc: 449 [place]: P: 56 GA: 184 QRS: 93 T: 62 INTERPRETIVE STATEMENTS: Normal sinus rhythm Normal ECG Compared to ECG 07/29/2022 10:50:14 First degree AV block no longer present Incomplete right bundle-branch block no longer present Electronically Signed On 07-31-22 05:33:33 CDT by Daniel Cespedes
== END 2022-07-30 11:36 | disposition home or self-care (01) ==
LOC: ER 09:41
DX: R11.2 Nausea with vomiting, unspecified (principal); E03.9 Hypothyroidism, unspecified; I10 Essential (primary) hypertension; F17.210 Nicotine dependence, cigarettes, uncomplicated; Z88.8 Allergy status to other drugs, medicaments and biological substances
CPT/HCPCS: 85025; 36415; 83735; 84484; 83690; 80053; Q0162; 93005

== ENCOUNTER 2022-07-30 17:19 | Emergency (ER) | payer OTHER ==
--- OUTSIDE RECORDS SUMMARY | 2022-07-30 17:31 | XMS REPORT | Continuity of Care Document ---
:1960 Author Organization [facility] t Address [address] [place] [address] [place] [id number] Care Team Providers Name Role Phone Sharpless Primary Care Physician MATT SIMPSON Attending Clinician Unavailable MATT SIMPSON Attending Clinician Unavailable Doctor Unassigned, [place] Attending Clinician Unavailable WALLY KRISHNAMURTHY Attending Clinician Unavailable Natacha Brewster Attending Clinician Payers Payer Name Policy Type Policy Number Effective Date Expiration Date Sarina castelan [facility] [id number] 2017 00:00:00 PLUS Problems This patient has [...] intake 2016-05-01 2016-05-01 Current [facility] 00:00:00 00:00:00 non-drinker of Medical nter alcohol (finding) Sex Assigned At [birth year] [facility] 00:00:00 00:00:00 [facility] Smoking Status Start Date Stop Date Source [...] capsule 00:00: 00 OXcarbazepi 2017-0 Yes 600mg Q.[id number] Take [address] [facility] [address] ne 2-23 [id number] mg by Yasir (TRILEPTAL) 10:23: 3D mouth 3 Med ical 600 [facility] 59 (three) Center tablet times daily. PARoxetine 2017-0 Yes 40mg QD Take [address] (PAXIL) 40 2-23 [facility] 10:23: nightly. [address] 2017-0 Yes 600mg Q.[id number] Take [address] ne 2-23 [id number] [facility] by [facility] (TR[facility]AL) 10:23: 3D mouth 3 Med ical 600 [facility] 59 (three) Center tablet times daily. PARoxetine 2017-0 Yes 40mg QD Take [address] (PAXIL) 40 2-23 [facility] 10:23: nightly. [address] 2017-0 Yes 600mg Q.[id number] Take [address] ne 2-23 [id number] mg by [facility] (TRILEPTAL) 10:23: 3D mouth 3 Med ical 600 [facility] 59 (three) Center tablet times daily. PARoxetine 2017-0 Yes 40mg QD Take [address] (PAXIL) 40 2-23 [facility] 10:23: nightly. [address] 2017-0 Yes 600mg Q.[id number] Take [address] ne 2-23 [id number] mg by [facility] (TRILEPTAL) 10:23: 3D mouth 3 Med ical 600 MG 59 (three) Center tablet times daily. PARoxetine 2017-0 Yes 40mg QD Take [address] (PAXIL) 40 2-23 [facility] 10:23: nightly. [address] 2017-0 Yes 600mg Q.[id number] Take [address] ne 2-23 [id number] mg by [facility] (TRILEPTAL) 10:23: 3D mouth 3 Med ical 600 MG 59 (three) Center tablet times daily. PARoxetine 2017-0 Yes 40mg QD Take [address] (PAXIL) 40 2-23 [facility] 10:23: nightly. [address] OXcarbazepi 2017-0 Yes 600mg Q.[id number] Take [address] ne 2-23 [id number] mg by [facility] (TRILEPTAL) 10:23: 3D mouth 3 Med ical 600 MG 59 (three) Center tablet times daily. PARoxetine 2017-0 Yes 40mg QD Take [address] (PAXIL) 40 2-23 [facility] tablet 10:23: nightly. [address] 2017-0 Yes 600mg Q.[id number] Take [address] ne 2-23 [id number] mg by [facility] (TRILEPTAL) 10:23: 3D mouth 3 Med ical 600 MG 59 (three) Center tablet times daily. PARoxetine 2017-0 Yes 40mg QD Take [address] (PAXIL) 40 2-23 [facility] 10:23: nightly. [address] 2017-0 Yes 600mg Q.[id number] Take [address] ne 2-23 [id number] mg by [facility] (TRILEPTAL) 10:23: 3D mouth 3 Med ical 600 MG 59 (three) Center tablet times daily. PARoxetine 2017-0 Yes 40mg QD Take [address] (PAXIL) 40 2-23 [facility] tablet 10:23: nightly. [address] 2017-0 Yes 600mg Q.[id number] Take [address] ne 2-23 [id number] mg by [facility] (TRILEPTAL) 10:23: 3D mouth 3 Med ical 600 MG 59 (three) Center tablet times daily. PARoxetine 2017-0 Yes 40mg QD Take [address] (PAXIL) 40 2-23 [facility] tablet 10:23: nightly. [address] OXcarbazepi 2017-0 Yes 600mg Q.[id number] Take [address] ne 2-23 [id number] mg by [facility] (TRILEPTAL) 10:23: 3D mouth 3 Med ical 600 MG 59 (three) Center tablet times daily. PARoxetine 2017-0 Yes 40mg QD Take [address] (PAXIL) 40 2-23 [facility] 10:23: nightly. [address] OXcarbazepi 2017-0 Yes 600mg Q.[id number] Take [address] ne 2-23 [id number] mg by [facility] (TRILEPTAL) 10:23: 3D mouth 3 Med ical 600 MG 59 (three) Center tablet times daily. PARoxetine 2017-0 Yes 40mg QD Take [address] (PAXIL) 40 2-23 [facility] tablet 10:23: nightly. [address] OXcarbazepi 2017-0 Yes 600mg Q.[id number] Take [address] ne 2-23 [id number] mg by [facility] (TRILEPTAL) 10:23: 3D mouth 3 Med ical 600 MG 59 (three) Center tablet times daily. PARoxetine 2017-0 Yes 40mg QD Take [address] (PAXIL) 40 2-23 by [facility] tablet 10:23: nightly. [address] OXcarbazepi 2017-0 Yes 600mg Q.[id number] Take [address] ne 2-23 [id number] mg by [facility] (TRILEPTAL) 10:23: 3D mouth 3 Med ical 600 MG 59 (three) Center tablet times daily. PARoxetine 2017-0 Yes 40mg QD Take [address] (PAXIL) 40 2-23 by mouth [facility] tablet 10:23: nightly. [address] OXcarbazepi 2017-0 Yes 600mg Q.[id number] Take [address] ne 2-23 [id number] mg by [facility] (TRILEPTAL) 10:23: 3D mouth 3 Med ical 600 MG 59 (three) Center tablet times daily. OXcarbazepi 2017-0 Yes 600mg Q.[id number] Take [address] ne 2-23 [id number] mg by [facility] (TRILEPTAL) 10:23: 3D mouth 3 Med ical 600 MG 59 (three) Center tablet times daily. PARoxetine 2017-0 Yes 40mg QD Take [address] (PAXIL) 40 2-23 by [facility] tablet 10:23: nightly. [address] OXcarbazepi 2017-0 Yes 600mg Q.[id number] Take [address] ne 2-23 [id number] mg by [facility] (TRILEPTAL) 10:23: 3D mouth 3 Med ical 600 MG 59 (three) Center tablet times daily. PARoxetine 2017-0 Yes 40mg QD Take [address] (PAXIL) 40 2-23 by [facility] tablet 10:23: nightly. [address] OXcarbazepi 2017-0 Yes 600mg Q.[id number] Take [address] ne 2-23 [id number] mg by [facility] (TRILEPTAL) 10:23: 3D mouth 3 Med ical 600 MG 59 (three) Center tablet times daily. PARoxetine 2017-0 Yes 40mg QD Take [address] (PAXIL) 40 2-23 by mouth [facility] tablet 10:23: nightly. [facility] [address] PARoxetine 2017-0 Yes 40mg QD Take [address] (PAXIL) 40 2-23 by mouth [facility] tablet 10:23: nightly. [facility] [address] OXcarbazepi 2017-0 Yes 600mg Q.[id number] Take [address] ne 2-23 [id number] mg by [facility] (TRILEPTAL) 10:23: 3D mouth 3 Med ical 600 MG 59 (three) Center tablet times daily. PARoxetine 2017-0 Yes 40mg QD Take [address] (PAXIL) 40 2-23 by mouth [facility] tablet 10:23: nightly. [facility] [address] OXcarbazepi 2017-0 Yes 600mg Q.[id number] Take [address] ne 2-23 [id number] mg by [facility] (TRILEPTAL) 10:23: 3D mouth 3 Med ical 600 MG 59 (three) Center tablet times daily. PARoxetine 2017-0 Yes 40mg QD Take [address] (PAXIL) 40 2-23 by mouth [facility] tablet 10:23: nightly. [facility] [address] OXcarbazepi 2017-0 Yes 600mg Q.[id number] Take [address] ne 2-23 [id number] mg by [facility] (TRILEPTAL) 10:23: 3D mouth 3 Med ical 600 MG 59 (three) Center tablet times daily. PARoxetine 2017-0 Yes 40mg QD Take [address] (PAXIL) 40 2-23 by mouth [facility] tablet 10:23: nightly. [facility] [address] OXcarbazepi 2017-0 Yes 600mg Q.[id number] Take [address] ne 2-23 [id number] mg by [facility] (TRILEPTAL) 10:23: 3D mouth 3 Med ical 600 MG 59 (three) Center tablet times daily. PARoxetine 2017-0 Yes 40mg QD Take [address] (PAXIL) 40 2-23 by mouth [facility] tablet 10:23: nightly. [facility] [address] OXcarbazepi 2017-0 Yes 600mg Q.[id number] Take [address] ne 2-23 [id number] mg by [facility] (TRILEPTAL) 10:23: 3D mouth 3 Med ical 600 MG 59 (three) Center tablet times daily. PARoxetine 2017-0 Yes 40mg QD Take [address] (PAXIL) 40 2-23 by mouth [facility] tablet 10:23: nightly. [facility] [address] OXcarbazepi 2017-0 Yes 600mg Q.[id number] Take [address] ne 2-23 [id number] mg by [facility] (TRILEPTAL) 10:23: 3D mouth 3 Med ical 600 MG 59 (three) Center tablet times daily. PARoxetine 2017-0 Yes 40mg QD Take [address] (PAXIL) 40 2-23 by mouth [facility] tablet 10:23: nightly. [facility] [address] OXcarbazepi 2017-0 Yes 600mg Q.[id number] Take [address] ne 2-23 [id number] mg by [facility] (TRILEPTAL) 10:23: 3D mouth 3 Med ical 600 MG 59 (three) Center tablet times daily. PARoxetine 2017-0 Yes 40mg QD Take [address] (PAXIL) 40 2-23 by mouth [facility] tablet 10:23: nightly. [facility] [address] OXcarbazepi 2017-0 Yes 600mg Q.[id number] Take [address] ne 2-23 [id number] mg by [facility] (TRILEPTAL) 10:23: 3D mouth 3 Med ical 600 MG 59 (three) Center tablet times daily. OXcarbazepi 2017-0 Yes 600mg Q.[id number] Take [address] ne 2-23 [id number] mg by [facility] (TRILEPTAL) 10:23: 3D mouth 3 Med ical 600 MG 59 (three) Center tablet times daily. PARoxetine 2017-0 Yes 40mg QD Take [address] (PAXIL) 40 2-23 by mouth [facility] tablet 10:23: nightly. [address] OXcarbazepi 2017-0 Yes 600mg Q.[id number] Take [address] ne 2-23 [id number] mg by [facility] (TRILEPTAL) 10:23: 3D mouth 3 Med ical 600 MG 59 (three) Center tablet times daily. PARoxetine 2017-0 Yes 40mg QD Take [address] (PAXIL) 40 2-23 by mouth [facility] tablet 10:23: nightly. [address] OXcarbazepi 2017-0 Yes 600mg Q.[id number] Take [address] ne 2-23 [id number] mg by [facility] (TRILEPTAL) 10:23: 3D mouth 3 Med ical 600 MG 59 (three) Center tablet times daily. PARoxetine 2017-0 Yes 40mg QD Take [address] (PAXIL) 40 2-23 by mouth [facility] tablet 10:23: nightly. [address] 2017-0 Yes 600mg Q.[id number] Take [address] ne 2-23 [id number] mg by [facility] (TRILEPTAL) 10:23: 3D mouth 3 Med ical 600 MG 59 (three) Center tablet times daily. PARoxetine 2017-0 Yes 40mg QD Take [address] (PAXIL) 40 2-23 by mouth [facility] tablet 10:23: nightly. [address] PARoxetine 2017-0 Yes 40mg QD Take [address] (PAXIL) 40 2-23 by mouth [facility] tablet 10:23: nightly. [address] OXcarbazepi 2017-0 Yes 600mg Q.[id number] Take [address] ne 2-23 [id number] mg by [facility] (TRILEPTAL) 10:23: 3D mouth 3 Med ical 600 MG 59 (three) Center tablet times daily. PARoxetine 2017-0 Yes 40mg QD Take [address] (PAXIL) 40 2-23 by mouth [facility] tablet 10:23: nightly. [address] OXcarbazepi 2017-0 Yes 600mg Q.[id number] Take [address] ne 2-23 [id number] mg by [facility] (TRILEPTAL) 10:23: 3D mouth 3 Med ical 600 MG 59 (three) Center tablet times daily. PARoxetine 2017-0 Yes 40mg QD Take [address] (PAXIL) 40 2-23 by mouth [facility] tablet 10:23: nightly. [facility] [address] OXcarbazepi 2017-0 Yes 600mg Q.[id number] Take [address] ne 2-23 [id number] mg by [facility] (TRILEPTAL) 10:23: 3D mouth 3 Med ical 600 MG 59 (three) Center tablet times daily. PARoxetine 2017-0 Yes 40mg QD Take [address] (PAXIL) 40 2-23 by mouth [facility] tablet 10:23: nightly. [facility] [address] OXcarbazepi 2017-0 Yes 600mg Q.[id number] Take [address] ne 2-23 [id number] mg by [facility] (TRILEPTAL) 10:23: 3D mouth 3 Med ical 600 MG 59 (three) Center tablet times daily. PARoxetine 2017-0 Yes 40mg QD Take [address] (PAXIL) 40 2-23 by mouth [facility] tablet 10:23: nightly. [facility] [address] OXcarbazepi 2017-0 Yes 600mg Q.[id number] Take [address] ne 2-23 [id number] mg by [facility] (TRILEPTAL) 10:23: 3D mouth 3 Med ical 600 MG 59 (three) Center tablet times daily. PARoxetine 2017-0 Yes 40mg QD Take [address] (PAXIL) 40 2-23 by mouth [facility] tablet 10:23: nightly. [facility] [address] OXcarbazepi 2017-0 Yes 600mg Q.[id number] Take [address] ne 2-23 [id number] mg by [facility] (TRILEPTAL) 10:23: 3D mouth 3 Med ical 600 MG 59 (three) Center tablet times daily. PARoxetine 2017-0 Yes 40mg QD Take [address] (PAXIL) 40 2-23 by mouth [facility] tablet 10:23: nightly. [facility] [address] OXcarbazepi 2017-0 Yes 600mg Q.[id number] Take [address] ne 2-23 [id number] mg by [facility] (TRILEPTAL) 10:23: 3D mouth 3 Med ical 600 MG 59 (three) Center tablet times daily. PARoxetine 2017-0 Yes 40mg QD Take [address] (PAXIL) 40 2-23 by mouth [facility] tablet 10:23: nightly. [facility] [address] OXcarbazepi 2017-0 Yes 600mg Q.[id number] Take [address] ne 2-23 [id number] mg by [facility] (TRILEPTAL) 10:23: 3D mouth 3 Med ical 600 MG 59 (three) Center tablet times daily. OXcarbazepi 2017-0 Yes 600mg Q.[id number] Take [address] ne 2-23 [id number] mg by [facility] (TRILEPTAL) 10:23: 3D mouth 3 Med ical 600 MG 59 (three) Center tablet times daily. PARoxetine 2017-0 Yes 40mg QD Take [address] (PAXIL) 40 2-23 by mouth [facility] tablet 10:23: nightly. [facility] [address] OXcarbazepi 2017-0 Yes 600mg Q.53501307 Take [address] ne 2-23 [id number] mg by [facility] (TRILEPTAL) 10:23: 3D mouth 3 Med ical 600 MG 59 (three) Center tablet times daily. PARoxetine 2017-0 Yes 40mg QD Take [address] (PAXIL) 40 2-23 by mouth [facility] tablet 10:23: nightly. [address] OXcarbazepi 2017-0 Yes 600mg Q.[id number] Take [address] ne 2-23 [id number] mg by [facility] (TRILEPTAL) 10:23: 3D mouth 3 Med ical 600 MG 59 (three) Center tablet times daily. PARoxetine 2017-0 Yes 40mg QD Take [address] (PAXIL) 40 2-23 by mouth [facility] tablet 10:23: nightly. [facility] [address] PARoxetine 2017-0 Yes 40mg QD Take [address] (PAXIL) 40 2-23 by mouth [facility] tablet 10:23: nightly. [address] OXcarbazepi 2017-0 Yes 600mg Q.[id number] Take [address] ne 2-23 [id number] mg by [facility] (TRILEPTAL) 10:23: 3D mouth 3 Med ical 600 MG 59 (three) Center tablet times daily. PARoxetine 2017-0 Yes 40mg QD Take [address] (PAXIL) 40 2-23 by mouth [facility] tablet 10:23: nightly. [facility] [address] OXcarbazepi 2017-0 Yes 600mg Q.00180728 Take [address] ne 2-23 [id number] mg by [facility] (TRILEPTAL) 10:23: 3D mouth 3 Med ical 600 MG 59 (three) Center tablet times daily. PARoxetine 2017-0 Yes 40mg QD Take [address] (PAXIL) 40 2-23 by mouth [facility] tablet 10:23: nightly. [facility] [address] LORazepam 2017-0 Yes 1mg Take 1 [facility] [...] Goal Plan of Care Note [code = 82735-3] Goal Plan of Care Note [code = 04364-8] Goal Plan of Care Note [code = 73889-7] Goal Plan of Care Note [code = 18123-0] Goal Plan of Care Note [code = 22471-4] Goal Plan of Care Note [code = 79690-9] Goal Plan of Care Note [code = 00966-4] Goal Plan of Care Note [code = 08451-6] Goal Plan of Care Note [code = 62269-5] Goal Plan of Care Note [code = 45582-9] Goal Plan of Care Note [code = 59755-6] Goal Plan of Care Note [code = 11885-2] Goal Plan of Care Note [code = 44272-1] Goal Plan of Care Note [code = 87804-8] Goal Plan of Care Note [code = 34769-3] Goal Plan of Care Note [code = 66837-3] Goal Plan of Care Note [code = 15435-3] Goal Plan of Care Note [code = 50332-0] Goal Plan of Care Note [code = 49361-4] Goal Plan of Care Note [code = 17530-3] Goal Plan of Care Note [code = 68603-3] Goal Plan of Care Note [code = 74629-3] Goal Plan of Care Note [code = 42482-7] Goal Plan of Care Note [code = 59262-4] Goal Plan of Care Note [code = 98393-5] Goal Plan of Care Note [code = 54221-4] Goal Plan of Care Note [code = 32950-8] Goal Plan of Care Note [code = 46256-0] Goal Plan of Care Note [code = 85183-6] Goal Plan of Care Note [code = 69796-8] Goal Plan of Care Note [code = 75159-0] Goal Plan of Care Note [code = 65601-3] Goal Plan of Care Note [code = 89251-6] Goal Plan of Care Note [code = 33108-3] Goal Plan of Care Note [code = 69228-0] Goal Plan of Care Note [code = 03155-6] Goal Plan of Care Note [code = 21635-1] Goal Plan of Care Note [code = 86399-3] Goal Plan of Care Note [code = 61065-7] Goal Plan of Care Note [code = 08463-5] Goal Plan of Care Note [code = 27271-5] Goal Plan of Care Note [code = 38699-1] Goal Plan of Care Note [code = 98190-2] Goal Plan of Care Note [code = 27889-5] Goal Plan of Care Note [code = 07624-4] Goal Plan of Care Note [code = 36251-6] Goal Plan of Care Note [code = 69594-1] Goal Plan of Care Note [code = 36227-0] Goal Plan of Care Note [code = 80312-3] Goal Plan of Care Note [code = 78748-8] Goal Plan of Care Note [code = 45401-0] Goal Plan of Care Note [code = 39500-5] Goal Plan of Care Note [code = 08449-9] Goal Plan of Care Note [code = 36928-8] Goal Plan of Care Note [code = 62027-5] Goal Plan of Care Note [code = 99451-5] Goal Plan of Care Note [code = 95497-1] Goal Plan of Care Note [code = 91730-4] Goal Plan of Care Note [code = 92534-7] Goal Plan of Care Note [code = 39922-8] Goal Plan of Care Note [code = 98742-0] Goal Plan of Care Note [code = 31260-0] Goal Plan of Care Note [code = 26458-7] Goal Plan of Care Note [code = 01868-4] Goal Plan of Care Note [code = 97445-8] Goal Plan of Care Note [code = 42826-2] Goal Plan of Care Note [code = 31400-7] Goal Plan of Care Note [code = 06009-6] Goal Plan of Care Note [code = 70588-0] Goal Plan of Care Note [code = 60932-0] Goal Plan of Care Note [code = 93306-2] Goal Plan of Care Note [code = 51948-4] Goal Plan of Care Note [code = 91659-6] Goal Plan of Care Note [code = 31413-1] Goal Plan of Care Note [code = 57590-5] Goal Plan of Care Note [code = 53613-7] Goal Plan of Care Note [code = 53936-8] Goal Plan of Care Note [code = 14709-0] Goal Plan of Care Note [code = 75155-1] Goal Plan of Care Note [code = 52277-6] Goal Plan of Care Note [code = 06042-0] Goal Plan of Care Note [code = 13852-9] Goal Plan of Care Note [code = 94606-4] Goal Plan of Care Note [code = 91148-5] Goal Plan of Care Note [code = 60047-9] Goal Plan of Care Note [code = 41523-6] Goal Plan of Care Note [code = 21505-4] Goal Plan of Care Note [code = 61733-8] Goal Plan of Care Note [code = 03567-1] Goal Plan of Care Note [code = 38515-5] Goal Plan of Care Note [code = 29195-1] Goal Plan of Care Note [code = 54786-8] Goal Plan of Care Note [code = 95893-8] Goal Plan of Care Note [code = 94397-3] Goal Plan of Care Note [code = 24039-9] Goal Plan of Care Note [code = 32047-9] Goal Plan of Care Note [code = 17935-1] Goal Plan of Care Note [code = 00685-8] Goal Plan of Care Note [code = 72464-2] Goal Plan of Care Note [code = 57478-0] Goal Plan of Care Note [code = 54276-9] Goal Plan of Care Note [code = 32090-0] Goal Plan of Care Note [code = 14291-4] Goal Plan of Care Note [code = 16330-5] Goal Plan of Care Note [code = 08623-2] Goal Plan of Care Note [code = 90279-6] Goal Plan of Care Note [code = 81692-0] Goal Plan of Care Note [code = 86240-5] Goal Plan of Care Note [code = 06286-2] Goal Plan of Care Note [code = 50271-8] Goal Plan of Care Note [code = 79675-5] Goal Plan of Care Note [code = 29476-7] Goal Plan of Care Note [code = 60932-2] Goal Plan of Care Note [code = 55756-8] Goal Plan of Care Note [code = 68469-7] Goal Plan of Care Note [code = 74390-2] Goal Plan of Care Note [code = 27828-3] Goal Plan of Care Note [code = 12294-6] Goal Plan of Care Note [code = 79734-9] Goal Plan of Care Note [code = 58439-3] Goal Plan of Care Note [code = 73433-2] Goal Plan of Care Note [code = 41519-0] Goal Plan of Care Note [code = 19388-2] Goal Plan of Care Note [code = 03096-0] Goal Plan of Care Note [code = 75099-9] Goal Plan of Care Note [code = 96442-2] Goal Plan of Care Note [code = 48457-4] Goal Plan of Care Note [code = 87538-4] Goal Plan of Care Note [code = 23168-5] Goal Plan of Care Note [code = 93575-5] Goal Plan of Care Note [code = 98158-0] Goal Plan of Care Note [code = 68122-9] Goal Plan of Care Note [code = 82932-7] Goal Plan of Care Note [code = 88350-5] Goal Plan of Care Note [code = 81371-0] Goal Plan of Care Note [code = 72885-6] Goal Plan of Care Note [code = 38440-3] Goal Plan of Care Note [code = 06459-9] Goal Plan of Care Note [code = 59781-9] Goal Plan of Care Note [code = 88583-2] Goal Plan of Care Note [code = 94840-4] Goal Plan of Care Note [code = 63470-3] Goal Plan of Care Note [code = 19029-7] Goal Plan of Care Note [code = 80074-0] Goal Plan of Care Note [code = 78652-7] Goal Plan of Care Note [code = 77108-4] Goal Plan of Care Note [code = 40749-4] Goal Plan of Care Note [code = 38384-7] Goal Plan of Care Note [code = 06532-9] Goal Plan of Care Note [code = 16317-7] Goal Plan of Care Note [code = 52882-5] Goal Plan of Care Note [code = 97180-3] Goal Plan of Care Note [code = 85110-1] Goal Plan of Care Note [code = 89702-9] Goal Plan of Care Note [code = 64108-1] Goal Plan of Care Note [code = 89314-4] Goal Plan of Care Note [code = 47363-3] Goal Plan of Care Note [code = 62717-2] Goal Plan of Care Note [code = 97874-1] Goal Plan of Care Note [code = 47796-3] Goal Plan of Care Note [code = 00501-8] Goal Plan of Care Note [code = 95637-1] Goal Plan of Care Note [code = 81401-9] Goal Plan of Care Note [code = 46878-7] Goal Plan of Care Note [code = 40246-6] Goal Plan of Care Note [code = 79793-7] Goal Plan of Care Note [code = 40757-3] Goal Plan of Care Note [code = 71269-1] Goal Plan of Care Note [code = 86378-3] Goal Plan of Care Note [code = 30953-6] Goal Plan of Care Note [code = 25833-3] Goal Plan of Care Note [code = 46087-2] Goal Plan of Care Note [code = 79191-2] Goal Plan of Care Note [code = 50700-4] Goal Plan of Care Note [code = 36708-3] Goal Plan of Care Note [code = 82850-3] Goal Plan of Care Note [code = 82548-8] Goal Plan of Care Note [code = 28616-1] Goal Plan of Care Note [code = 97280-4] Goal Plan of Care Note [code = 38526-0] Goal Plan of Care Note [code = 36699-4] Goal Plan of Care Note [code = 50726-6] Goal Plan of Care Note [code = 18739-4] Goal Plan of Care Note [code = 54867-0] Goal Plan of Care Note [code = 47347-9] Goal Plan of Care Note [code = 59864-2] Goal Plan of Care Note [code = 81931-3] Goal Plan of Care Note [code = 24817-2] Goal Plan of Care Note [code = 33848-2] Goal Plan of Care Note [code = 39503-3] Goal Plan of Care Note [code = 75777-6] Goal Plan of Care Note [code = 84091-8] Goal Plan of Care Note [code = 01759-5] Goal Plan of Care Note [code = 57905-9] Goal Plan of Care Note [code = 84765-2] Goal Plan of Care Note [code = 70690-3] Goal Plan of Care Note [code = 54030-1] Goal Plan of Care Note [code = 31930-9] Goal Plan of Care Note [code = 61127-3] Goal Plan of Care Note [code = 88534-5] Goal Plan of Care Note [code = 99718-1] Goal Plan of Care Note [code = 77472-2] Goal Plan of Care Note [code = 85381-2] Goal Plan of Care Note [code = 43232-3] Goal Plan of Care Note [code = 75779-4] Goal Plan of Care Note [code = 99505-3] Goal Plan of Care Note [code = 71126-4] Goal Plan of Care Note [code = 26426-3] Encounters Start End Encounter Admission Attending Care Care Encounter Source Date/Time Date/Time Type Type Clinicians Facility Department ID 2021-06-01 Outpatient [facility] [id number] [place] 01:36:29 [id number] [facility] 2022-05-24 2022-05-24 Outpatient [facility] SFA [id number] Cristian 10:36:59 10:36:59 [id number] F Jerman 2022-02-11 2022-02-11 Outpatient [facility] SFA [id number] Cristian 09:04:48 09:04:48 1206 F Jerman 2022-02-10 2022-02-10 Outpatient [facility] SFA [id number] Cristian 09:29:34 09:29:34 1205 F Jerman 2022-02-10 2022-02-10 Outpatient [id number] 00:00:00 00:00:00 Visit [id number] [id number] 2022-01-10 2022-01-10 Outpatient [facility] SFA [id number] 022 Cristian 09:16:14 09:16:14 1104 F Jerman 2022-01-10 2022-01-10 Outpatient [id number]- [id number] accaa6-a 00:00:00 00:00:00 Visit aca9-4c83 ca9-4c83-a -v5cq-de2 7eb-bc13f3 6y0l348b1 f032f9 2021-12-19 2021-12-19 Outpatient SFA SFA [id number] 022 Cristian 16:11:31 16:11:31 1013 F Jerman 2021-12-19 2021-12-19 Outpatient [id number]- [id number] 466cae-a 00:00:00 00:00:00 Visit b725-404s 770-441f-a -adae-62b amelia-62bace qneao57uv fd81af 2021-09-17 2021-09-17 Outpatient osc3hwja- [id number] n5acra-9 00:00:00 00:00:00 Visit 935a-4f50 35a-4f50-b -c12l-a5e 77d-c2ba85 [id number] 2020-08-03 2020-08-03 Outpatient MATT V[facility]SQUEZ [facility] [id number] [facility] [facility] 10:00:00 10:00:00 MATT SIMPSON [facility] 2020-07-25 2020-07-25 Orders Doctor ABE [id number] 00:00:00 00:00:00 Only Unassigned, BK 350.1.13.10 [place] [facility] [id number] [id number] 2019-09-26 2019-09-26 Outpatient R RAGHU, [facility] [id number] [facility] 16:00:00 16:00:00 WALLY [facility] 2018-10-21 2018-10-21 Telephone Gramm, [facility] [id number] 00:00:00 00:00:00 Natacha Shar Nguyen 350.1.13.10 Ade 4.2.7.2.686 [place] [id number] nal 204 Building Results Test Description Test Time Test Comments Results Result Comments Source TSH, THIRD GENERATION 2022-05-26 02:57:49 Test Item Value Reference Range Interpretation Comme nts TSH, THIRD GENERATION (test code = 2821) 6.350 UIU/ML 0.400-4.100 H LIPID [id number] 01:09:34 Test Item Value Reference Range Interpretation [...] , SEE CLIENT ANNOUNCE MENT AT [email or web address] [email or web address] RATIO LDL/HDL 2.73 RATIO <3.22 [facility] has important (test code = 2238) pathology staff changes effecti ve 05/07/2022. New pathology staff will provide uninter rupted, excellent patie nt care and clinical consultation. S ee URL: [email or web address] UNLES S OTHERWISE INDIC ATED, ALL TESTING PER FORMED AT [facility]MER[facility], [place] [address] [place] [id number] ISIDRA CARTER DIRECTOR: CAM GUTHRIE M.D. C CONNOR NUMBER [id number] CAP ACCREDITATION N O. [id number] HEMOGLOBIN [id number] 03:17:24 Test Item Value Reference Range Interpretation Comments HEMOGLOBIN A1c (test 6.4 % 4.2-5.6 H AMERIC AN DIABETES code = 82474) [facility] A1C: PREDIABETES/INC REASED RISK [...] TESTING OR LABORATORY C ONSULTATION. TSH, THIRD [id number] 05:15:49 Test Item Value Reference Range Interpretation Comments TSH, THIRD GENERATION (test code 2.080 UIU/ML 0.400-4.100 = 2821) HEMOGLOBIN [id number] 03:46:00 Test Item Value Reference Range Interpretation Comments HEMOGLOBIN A1c (test 6.6 % 4.2-5.6 H AMERIC AN DIABETES code = 64696) [facility] A1C: PREDIABETES/INC REASED RISK [...] INDICATED, ALL TESTING PER FORMED ATCLINICAL PATH [facility] [employer], [place] [address] [place] [address] [phone] LABORATORY DIRE CTOR: Andrew BROWN NUMBER [id number] [facility] [place]. [id number] LIPID [id number] 02:59:52 Test Item Value Reference Range Interpretation [...] MOREINFORMATION , SEE CLIENT ANNOUNCE MENT AT [email or web address] RISK RATIO LDL/HDL 4.02 RATIO <3.22 H (test code = 2238) [id number] 00:00:00 Test Item Value Reference Range Interpretation Comments TSH, THIRD GENERATION (test code 2.080 UIU/ML = 2821) [id number] 00:00:00 Test Item Value Reference Range Interpretation Comments TSH, THIRD GENERATION (test code 2.080 UIU/ML = 2821) [id number] 00:00:00 Test Item Value Reference Range Interpretation Comments TSH, THIRD GENERATION (test code 2.080 UIU/ML = 2821) LIPID [id number] 00:00:00 Test Item Value Reference Range Interpretation Comments CHOLESTEROL (test code = 2210) 292 MG/DL TRIGLYCERIDES (test code = 2232) 184 MG/DL HDL CHOLESTEROL (test code = 2220) 51 MG/DL CALC LDL CHOL (test code = 2237) 205 MG/DL RISK RATIO LDL/HDL (test code = 4.02 RATIO 2238) LIPID [id number] 00:00:00 Test Item Value Reference Range Interpretation Comments CHOLESTEROL (test code = 2210) 292 MG/DL TRIGLYCERIDES (test code = 2232) 184 MG/DL HDL CHOLESTEROL (test code = 2220) 51 MG/DL CALC LDL CHOL (test code = 2237) 205 MG/DL RISK RATIO LDL/HDL (test code = 4.02 RATIO 2238) HEMOGLOBIN [id number] 00:00:00 Test Item Value Reference Range Interpretation Comments HEMOGLOBIN A1c (test code = 25035) 6.6 % HEMOGLOBIN [id number] 00:00:00 Test Item Value Reference Range Interpretation Comments HEMOGLOBIN A1c (test code = 63218) 6.6 % HEMOGLOBIN [id number] 00:00:00 Test Item Value Reference Range Interpretation Comments HEMOGLOBIN A1c (test code = 41457) 6.6 % [id number] 00:00:00 Test Item Value Reference Range Interpretation Comments TSH, THIRD GENERATION (test code 2.080 UIU/ML = 2821) [id number] 00:00:00 Test Item Value Reference Range Interpretation Comments TSH, THIRD GENERATION (test code 2.080 UIU/ML = 2821) [id number] 00:00:00 Test Item Value Reference Range Interpretation Comments TSH, THIRD GENERATION (test code 2.080 UIU/ML = 2821) LIPID [id number] 00:00:00 Test Item Value Reference Range Interpretation Comments CHOLESTEROL (test code = 2210) 292 MG/DL TRIGLYCERIDES (test code = 2232) 184 MG/DL HDL CHOLESTEROL (test code = 2220) 51 MG/DL CALC LDL CHOL (test code = 2237) 205 MG/DL RISK RATIO LDL/HDL (test code = 4.02 RATIO 2238) LIPID [id number] 00:00:00 Test Item Value Reference Range Interpretation Comments CHOLESTEROL (test code = 2210) 292 MG/DL TRIGLYCERIDES (test code = 2232) 184 MG/DL HDL CHOLESTEROL (test code = 2220) 51 MG/DL CALC LDL CHOL (test code = 2237) 205 MG/DL RISK RATIO LDL/HDL (test code = 4.02 RATIO 2238) HEMOGLOBIN [id number] 00:00:00 Test Item Value Reference Range Interpretation Comments HEMOGLOBIN A1c (test code = 42824) 6.6 % HEMOGLOBIN [id number] 00:00:00 Test Item Value Reference Range Interpretation Comments HEMOGLOBIN A1c (test code = 17263) 6.6 % HEMOGLOBIN [id number] 00:00:00 Test Item Value Reference Range Interpretation Comments HEMOGLOBIN A1c (test code = 16758) 6.6 % [id number] 00:00:00 Test Item Value Reference Range Interpretation Comments TSH, THIRD GENERATION (test code 2.080 UIU/ML = 2821) [id number] 00:00:00 Test Item Value Reference Range Interpretation Comments TSH, THIRD GENERATION (test code 2.080 UIU/ML = 2821) LIPID [id number] 00:00:00 Test Item Value Reference Range Interpretation Comments CHOLESTEROL (test code = 2210) 292 MG/DL TRIGLYCERIDES (test code = 2232) 184 MG/DL HDL CHOLESTEROL (test code = 2220) 51 MG/DL CALC LDL CHOL (test code = 2237) 205 MG/DL RISK RATIO LDL/HDL (test code = 4.02 RATIO 2238) HEMOGLOBIN [id number] 00:00:00 Test Item Value Reference Range Interpretation Comments HEMOGLOBIN A1c (test code = 22965) 6.6 % HEMOGLOBIN [id number] 00:00:00 Test Item Value Reference Range Interpretation Comments HEMOGLOBIN A1c (test code = 15843) 6.6 % [id number] 00:00:00 Test Item Value Reference Range Interpretation Comments TSH, THIRD GENERATION (test code 2.080 UIU/ML = 2821) [id number] 00:00:00 Test Item Value Reference Range Interpretation Comments TSH, THIRD GENERATION (test code 2.080 UIU/ML = 2821) [id number] 00:00:00 Test Item Value Reference Range Interpretation Comments TSH, THIRD GENERATION (test code 2.080 UIU/ML = 2821) LIPID [id number] 00:00:00 Test Item Value Reference Range Interpretation Comments CHOLESTEROL (test code = 2210) 292 MG/DL TRIGLYCERIDES (test code = 2232) 184 MG/DL HDL CHOLESTEROL (test code = 2220) 51 MG/DL CALC LDL CHOL (test code = 2237) 205 MG/DL RISK RATIO LDL/HDL (test code = 4.02 RATIO 2238) LIPID [id number] 00:00:00 Test Item Value Reference Range Interpretation Comments CHOLESTEROL (test code = 2210) 292 MG/DL TRIGLYCERIDES (test code = 2232) 184 MG/DL HDL CHOLESTEROL (test code = 2220) 51 MG/DL CALC LDL CHOL (test code = 2237) 205 MG/DL RISK RATIO LDL/HDL (test code = 4.02 RATIO 2238) HEMOGLOBIN [id number] 00:00:00 Test Item Value Reference Range Interpretation Comments HEMOGLOBIN A1c (test code = 29868) 6.6 % HEMOGLOBIN [id number] 00:00:00 Test Item Value Reference Range Interpretation Comments HEMOGLOBIN A1c (test code = 03459) 6.6 % HEMOGLOBIN [id number] 00:00:00 Test Item Value Reference Range Interpretation Comments HEMOGLOBIN A1c (test code = 18089) 6.6 % HEMOGLOBIN [id number] 00:00:00 Test Item Value Reference Range Interpretation Comments HEMOGLOBIN A1c (test code = 54827) 6.8 % HEMOGLOBIN [id number] 00:00:00 Test Item Value Reference Range Interpretation Comments HEMOGLOBIN A1c (test code = 74987) 6.8 % HEMOGLOBIN [id number] 00:00:00 Test Item Value Reference Range Interpretation Comments HEMOGLOBIN A1c (test code = 15114) 6.8 % LIPID [id number] 00:00:00 Test Item Value Reference Range Interpretation Comments CHOLESTEROL (test code = 2210) 303 MG/DL TRIGLYCERIDES (test code = 2232) 191 MG/DL HDL CHOLESTEROL (test code = 2220) 61 MG/DL CALC LDL CHOL (test code = 2237) 205 MG/DL RISK RATIO LDL/HDL (test code = 3.36 RATIO 2238) LIPID [id number] 00:00:00 Test Item Value Reference Range Interpretation Comments CHOLESTEROL (test code = 2210) 303 MG/DL TRIGLYCERIDES (test code = 2232) 191 MG/DL HDL CHOLESTEROL (test code = 2220) 61 MG/DL CALC LDL CHOL (test code = 2237) 205 MG/DL RISK RATIO LDL/HDL (test code = 3.36 RATIO 2238) [id number] 00:00:00 Test Item Value Reference Range Interpretation Comments TSH, THIRD GENERATION (test code 0.769 UIU/ML = 2821) [id number] 00:00:00 Test Item Value Reference Range Interpretation Comments TSH, THIRD GENERATION (test code 0.769 UIU/ML = 2821) [id number] 00:00:00 Test Item Value Reference Range Interpretation Comments TSH, THIRD GENERATION (test code 0.769 UIU/ML = 2821) COMPREHENSIVE METABOLIC [id number] 00:00:00 Test Item Value Reference Range Interpretation Comments GLUCOSE (test code = 2217) 131 MG/DL BUN (test code = 2208) 13 MG/DL CREATININE (test code = 2214) 0.65 MG/DL eGFR AMER. (test code 113 ML/MIN/1.73 = 90533) eGFR NON- AMER. (test 97 ML/MIN/1.73 code = 77345) CALC BUN/CREAT (test code = 20 RATIO [...] code = 2219) 23 U/L COMPREHENSIVE METABOLIC [id number] 00:00:00 Test Item Value Reference Range Interpretation Comments GLUCOSE (test code = 2217) 131 MG/DL BUN (test code = 2208) 13 MG/DL CREATININE (test code = 2214) 0.65 MG/DL eGFR AMER. (test code 113 ML/MIN/1.73 = 13044) eGFR NON- AMER. (test 97 ML/MIN/1.73 code = 42421) CALC BUN/CREAT (test code = 20 RATIO [...] (test code = 2219) 23 U/L HEMOGLOBIN [id number] 00:00:00 Test Item Value Reference Range Interpretation Comments HEMOGLOBIN A1c (test code = 18509) 6.8 % HEMOGLOBIN [id number] 00:00:00 Test Item Value Reference Range Interpretation Comments HEMOGLOBIN A1c (test code = 96530) 6.8 % HEMOGLOBIN [id number] 00:00:00 Test Item Value Reference Range Interpretation Comments HEMOGLOBIN A1c (test code = 71776) 6.8 % LIPID [id number] 00:00:00 Test Item Value Reference Range Interpretation Comments CHOLESTEROL (test code = 2210) 303 MG/DL TRIGLYCERIDES (test code = 2232) 191 MG/DL HDL CHOLESTEROL (test code = 2220) 61 MG/DL CALC LDL CHOL (test code = 2237) 205 MG/DL RISK RATIO LDL/HDL (test code = 3.36 RATIO 2238) LIPID [id number] 00:00:00 Test Item Value Reference Range Interpretation Comments CHOLESTEROL (test code = 2210) 303 MG/DL TRIGLYCERIDES (test code = 2232) 191 MG/DL HDL CHOLESTEROL (test code = 2220) 61 MG/DL CALC LDL CHOL (test code = 2237) 205 MG/DL RISK RATIO LDL/HDL (test code = 3.36 RATIO 2238) [id number] 00:00:00 Test Item Value Reference Range Interpretation Comments TSH, THIRD GENERATION (test code 0.769 UIU/ML = 2821) [id number] 00:00:00 Test Item Value Reference Range Interpretation Comments TSH, THIRD GENERATION (test code 0.769 UIU/ML = 2821) [id number] 00:00:00 Test Item Value Reference Range Interpretation Comments TSH, THIRD GENERATION (test code 0.769 UIU/ML = 2821) COMPREHENSIVE METABOLIC [id number] 00:00:00 Test Item Value Reference Range Interpretation Comments GLUCOSE (test code = 2217) 131 MG/DL BUN (test code = 2208) 13 MG/DL CREATININE (test code = 2214) 0.65 MG/DL eGFR AMER. (test code 113 ML/MIN/1.73 = 22207) eGFR NON- AMER. (test 97 ML/MIN/1.73 code = 29604) CALC BUN/CREAT (test code = 20 RATIO [...] code = 2219) 23 U/L COMPREHENSIVE METABOLIC [id number] 00:00:00 Test Item Value Reference Range Interpretation Comments GLUCOSE (test code = 2217) 131 MG/DL BUN (test code = 2208) 13 MG/DL CREATININE (test code = 2214) 0.65 MG/DL eGFR AMER. (test code 113 ML/MIN/1.73 = 88622) eGFR NON- AMER. (test 97 ML/MIN/1.73 code = 87027) CALC BUN/CREAT (test code = 20 RATIO [...] (test code = 2219) 23 U/L HEMOGLOBIN [id number] 00:00:00 Test Item Value Reference Range Interpretation Comments HEMOGLOBIN A1c (test code = 95403) 6.8 % HEMOGLOBIN [id number] 00:00:00 Test Item Value Reference Range Interpretation Comments HEMOGLOBIN A1c (test code = 89114) 6.8 % LIPID [id number] 00:00:00 Test Item Value Reference Range Interpretation Comments CHOLESTEROL (test code = 2210) 303 MG/DL TRIGLYCERIDES (test code = 2232) 191 MG/DL HDL CHOLESTEROL (test code = 2220) 61 MG/DL CALC LDL CHOL (test code = 2237) 205 MG/DL RISK RATIO LDL/HDL (test code = 3.36 RATIO 2238) [id number] 00:00:00 Test Item Value Reference Range Interpretation Comments TSH, THIRD GENERATION (test code 0.769 UIU/ML = 2821) [id number] 00:00:00 Test Item Value Reference Range Interpretation Comments TSH, THIRD GENERATION (test code 0.769 UIU/ML = 2821) COMPREHENSIVE METABOLIC [id number] 00:00:00 Test Item Value Reference Range Interpretation Comments GLUCOSE (test code = 2217) 131 MG/DL BUN (test code = 2208) 13 MG/DL CREATININE (test code = 2214) 0.65 MG/DL eGFR AMER. (test code 113 ML/MIN/1.73 = 25799) eGFR NON- AMER. (test 97 ML/MIN/1.73 code = 54845) CALC BUN/CREAT (test code = 20 RATIO [...] (test code = 2219) 23 U/L HEMOGLOBIN [id number] 00:00:00 Test Item Value Reference Range Interpretation Comments HEMOGLOBIN A1c (test code = 37470) 6.8 % HEMOGLOBIN [id number] 00:00:00 Test Item Value Reference Range Interpretation Comments HEMOGLOBIN A1c (test code = 89366) 6.8 % HEMOGLOBIN [id number] 00:00:00 Test Item Value Reference Range Interpretation Comments HEMOGLOBIN A1c (test code = 26389) 6.8 % LIPID [id number] 00:00:00 Test Item Value Reference Range Interpretation Comments CHOLESTEROL (test code = 2210) 303 MG/DL TRIGLYCERIDES (test code = 2232) 191 MG/DL HDL CHOLESTEROL (test code = 2220) 61 MG/DL CALC LDL CHOL (test code = 2237) 205 MG/DL RISK RATIO LDL/HDL (test code = 3.36 RATIO 2238) LIPID [id number] 00:00:00 Test Item Value Reference Range Interpretation Comments CHOLESTEROL (test code = 2210) 303 MG/DL TRIGLYCERIDES (test code = 2232) 191 MG/DL HDL CHOLESTEROL (test code = 2220) 61 MG/DL CALC LDL CHOL (test code = 2237) 205 MG/DL RISK RATIO LDL/HDL (test code = 3.36 RATIO 2238) [id number] 00:00:00 Test Item Value Reference Range Interpretation Comments TSH, THIRD GENERATION (test code 0.769 UIU/ML = 2821) [id number] 00:00:00 Test Item Value Reference Range Interpretation Comments TSH, THIRD GENERATION (test code 0.769 UIU/ML = 2821) [id number] 00:00:00 Test Item Value Reference Range Interpretation Comments TSH, THIRD GENERATION (test code 0.769 UIU/ML = 2821) COMPREHENSIVE METABOLIC [id number] 00:00:00 Test Item Value Reference Range Interpretation Comments GLUCOSE (test code = 2217) 131 MG/DL BUN (test code = 2208) 13 MG/DL CREATININE (test code = 2214) 0.65 MG/DL eGFR AMER. (test code 113 ML/MIN/1.73 = 20077) eGFR NON- AMER. (test 97 ML/MIN/1.73 code = 23700) CALC BUN/CREAT (test code = 20 RATIO [...] code = 2219) 23 U/L COMPREHENSIVE METABOLIC [id number] 00:00:00 Test Item Value Reference Range Interpretation Comments GLUCOSE (test code = 2217) 131 MG/DL BUN (test code = 2208) 13 MG/DL CREATININE (test code = 2214) 0.65 MG/DL eGFR AMER. (test code 113 ML/MIN/1.73 = 00112) eGFR NON- AMER. (test 97 ML/MIN/1.73 code = 35919) CALC BUN/CREAT (test code = 20 RATIO [...] (test code = 2219) 23 U/L HEMOGLOBIN [id number] 00:00:00 Test Item Value Reference Range Interpretation Comments HEMOGLOBIN A1c (test code = 92825) 6.6 % HEMOGLOBIN [id number] 00:00:00 Test Item Value Reference Range Interpretation Comments HEMOGLOBIN A1c (test code = 86073) 6.6 % HEMOGLOBIN [id number] 00:00:00 Test Item Value Reference Range Interpretation Comments HEMOGLOBIN A1c (test code = 38420) 6.6 % LIPID [id number] 00:00:00 Test Item Value Reference Range Interpretation Comments CHOLESTEROL (test code = 2210) 261 MG/DL TRIGLYCERIDES (test code = 2232) 159 MG/DL HDL CHOLESTEROL (test code = 2220) 82 MG/DL CALC LDL CHOL (test code = 2237) 150 MG/DL RISK RATIO LDL/HDL (test code = 1.83 RATIO 2238) LIPID [id number] 00:00:00 Test Item Value Reference Range Interpretation Comments CHOLESTEROL (test code = 2210) 261 MG/DL TRIGLYCERIDES (test code = 2232) 159 MG/DL HDL CHOLESTEROL (test code = 2220) 82 MG/DL CALC LDL CHOL (test code = 2237) 150 MG/DL RISK RATIO LDL/HDL (test code = 1.83 RATIO 2238) COMPREHENSIVE METABOLIC [id number] 00:00:00 Test Item Value Reference Range Interpretation Comments GLUCOSE (test code = 2217) 144 MG/DL BUN (test code = 2208) 15 MG/DL CREATININE (test code = 2214) 0.85 MG/DL eGFR AMER. (test code 87 ML/MIN/1.73 = 14602) eGFR NON- AMER. (test 75 ML/MIN/1.73 code = 39478) CALC BUN/CREAT (test code = 18 RATIO [...] code = 2219) 50 U/L COMPREHENSIVE METABOLIC [id number] 00:00:00 Test Item Value Reference Range Interpretation Comments GLUCOSE (test code = 2217) 144 MG/DL BUN (test code = 2208) 15 MG/DL CREATININE (test code = 2214) 0.85 MG/DL eGFR AMER. (test code 87 ML/MIN/1.73 = 73317) eGFR NON- AMER. (test 75 ML/MIN/1.73 code = 30261) CALC BUN/CREAT (test code = 18 RATIO [...] Range Interpretation Comments T-UPTAKE (test code = 6807) 30.2 % THYROX. BIND. CAPAC. (test code 1.1 = 28560) T4 (THYROXINE) (test code = 4.3 UG/DL 2819) CORRECTED T4 (FTI) (test code = 3.9 UG/DL 2820) TSH, THIRD GENERATION (test 18.900 UIU/ML code = 2821) THYROID II PROFILE (T3U, T4, T7, TSH)[id number] 00:00:00 Test Item Value Reference Range Interpretation Comments T-UPTAKE (test code = 2817) 30.2 % THYROX. BIND. CAPAC. (test code 1.1 = 00462) T4 (THYROXINE) (test code = 4.3 UG/DL 2819) CORRECTED T4 (FTI) (test code = 3.9 UG/DL 2820) TSH, THIRD GENERATION (test 18.900 UIU/ML code = 2821) HEMOGLOBIN [id number] 00:00:00 Test Item Value Reference Range Interpretation Comments HEMOGLOBIN A1c (test code = 34635) 6.6 % HEMOGLOBIN [id number] 00:00:00 Test Item Value Reference Range Interpretation Comments HEMOGLOBIN A1c (test code = 31019) 6.6 % HEMOGLOBIN [id number] 00:00:00 Test Item Value Reference Range Interpretation Comments HEMOGLOBIN A1c (test code = 73684) 6.6 % LIPID [id number] 00:00:00 Test Item Value Reference Range Interpretation Comments CHOLESTEROL (test code = 2210) 261 MG/DL TRIGLYCERIDES (test code = 2232) 159 MG/DL HDL CHOLESTEROL (test code = 2220) 82 MG/DL CALC LDL CHOL (test code = 2237) 150 MG/DL RISK RATIO LDL/HDL (test code = 1.83 RATIO 2238) LIPID [id number] 00:00:00 Test Item Value Reference Range Interpretation Comments CHOLESTEROL (test code = 2210) 261 MG/DL TRIGLYCERIDES (test code = 2232) 159 MG/DL HDL CHOLESTEROL (test code = 2220) 82 MG/DL CALC LDL CHOL (test code = 2237) 150 MG/DL RISK RATIO LDL/HDL (test code = 1.83 RATIO 2238) COMPREHENSIVE METABOLIC [id number] 00:00:00 Test Item Value Reference Range Interpretation Comments GLUCOSE (test code = 2217) 144 MG/DL BUN (test code = 2208) 15 MG/DL CREATININE (test code = 2214) 0.85 MG/DL eGFR AMER. (test code 87 ML/MIN/1.73 = 03599) eGFR NON- AMER. (test 75 ML/MIN/1.73 code = 05533) CALC BUN/CREAT (test code = 18 RATIO [...] code = 2219) 50 U/L COMPREHENSIVE METABOLIC [id number] 00:00:00 Test Item Value Reference Range Interpretation Comments GLUCOSE (test code = 2217) 144 MG/DL BUN (test code = 2208) 15 MG/DL CREATININE (test code = 2214) 0.85 MG/DL eGFR AMER. (test code 87 ML/MIN/1.73 = 60156) eGFR NON- AMER. (test 75 ML/MIN/1.73 code = 11631) CALC BUN/CREAT (test code = 18 RATIO [...] THYROX. BIND. CAPAC. (test code 1.1 = 84026) T4 (THYROXINE) (test code = 4.3 UG/DL 2819) CORRECTED T4 (FTI) (test code = 3.9 UG/DL 2820) TSH, THIRD GENERATION (test 18.900 UIU/ML code = 2821) THYROID II PROFILE (T3U, T4, T7, TSH)2020-05-23 00:00:00 Test Item Value Reference Range Interpretation Comments T-UPTAKE (test code = 2817) 30.2 % THYROX. BIND. CAPAC. (test code 1.1 = 27283) T4 (THYROXINE) (test code = 4.3 UG/DL 2819) CORRECTED T4 (FTI) (test code = 3.9 UG/DL 2820) TSH, THIRD GENERATION (test 18.900 UIU/ML code = 2821) HEMOGLOBIN [id number] 00:00:00 Test Item Value Reference Range Interpretation Comments HEMOGLOBIN A1c (test code = 07891) 6.6 % HEMOGLOBIN [id number] 00:00:00 Test Item Value Reference Range Interpretation Comments HEMOGLOBIN A1c (test code = 90645) 6.6 % LIPID [id number] 00:00:00 Test Item Value Reference Range Interpretation Comments CHOLESTEROL (test code = 2210) 261 MG/DL TRIGLYCERIDES (test code = 2232) 159 MG/DL HDL CHOLESTEROL (test code = 2220) 82 MG/DL CALC LDL CHOL (test code = 2237) 150 MG/DL RISK RATIO LDL/HDL (test code = 1.83 RATIO 2238) COMPREHENSIVE METABOLIC [id number] 00:00:00 Test Item Value Reference Range Interpretation Comments GLUCOSE (test code = 2217) 144 MG/DL BUN (test code = 2208) 15 MG/DL CREATININE (test code = 2214) 0.85 MG/DL eGFR AMER. (test code 87 ML/MIN/1.73 = 17408) eGFR NON- AMER. (test 75 ML/MIN/1.73 code = 16118) CALC BUN/CREAT (test code = 18 RATIO [...] THYROX. BIND. CAPAC. (test code 1.1 = 42599) T4 (THYROXINE) (test code = 4.3 UG/DL 2819) CORRECTED T4 (FTI) (test code = 3.9 UG/DL 2820) TSH, THIRD GENERATION (test 18.900 UIU/ML code = 2821) HEMOGLOBIN [id number] 00:00:00 Test Item Value Reference Range Interpretation Comments HEMOGLOBIN A1c (test code = 58880) 6.6 % HEMOGLOBIN [id number] 00:00:00 Test Item Value Reference Range Interpretation Comments HEMOGLOBIN A1c (test code = 10988) 6.6 % HEMOGLOBIN [id number] 00:00:00 Test Item Value Reference Range Interpretation Comments HEMOGLOBIN A1c (test code = 47310) 6.6 % LIPID [id number] 00:00:00 Test Item Value Reference Range Interpretation Comments CHOLESTEROL (test code = 2210) 261 MG/DL TRIGLYCERIDES (test code = 2232) 159 MG/DL HDL CHOLESTEROL (test code = 2220) 82 MG/DL CALC LDL CHOL (test code = 2237) 150 MG/DL RISK RATIO LDL/HDL (test code = 1.83 RATIO 2238) LIPID [id number] 00:00:00 Test Item Value Reference Range Interpretation Comments CHOLESTEROL (test code = 2210) 261 MG/DL TRIGLYCERIDES (test code = 2232) 159 MG/DL HDL CHOLESTEROL (test code = 2220) 82 MG/DL CALC LDL CHOL (test code = 2237) 150 MG/DL RISK RATIO LDL/HDL (test code = 1.83 RATIO 2238) COMPREHENSIVE METABOLIC [id number] 00:00:00 Test Item Value Reference Range Interpretation Comments GLUCOSE (test code = 2217) 144 MG/DL BUN (test code = 2208) 15 MG/DL CREATININE (test code = 2214) 0.85 MG/DL eGFR AMER. (test code 87 ML/MIN/1.73 = 03010) eGFR NON- AMER. (test 75 ML/MIN/1.73 code = 25777) CALC BUN/CREAT (test code = 18 RATIO [...] code = 2219) 50 U/L COMPREHENSIVE METABOLIC [id number] 00:00:00 Test Item Value Reference Range Interpretation Comments GLUCOSE (test code = 2217) 144 MG/DL BUN (test code = 2208) 15 MG/DL CREATININE (test code = 2214) 0.85 MG/DL eGFR AMER. (test code 87 ML/MIN/1.73 = 13941) eGFR NON- AMER. (test 75 ML/MIN/1.73 code = 46946) CALC BUN/CREAT (test code = 18 RATIO [...] THYROX. BIND. CAPAC. (test code 1.1 = 78010) T4 (THYROXINE) (test code = 4.3 UG/DL 281) CORRECTED T4 (FTI) (test code = 3.9 UG/DL 2820) TSH, THIRD GENERATION (test 18.900 UIU/ML code = 2821) THYROID II PROFILE (T3U, T4, T7, TSH)[id number] 00:00:00 Test Item Value Reference Range Interpretation Comments T-UPTAKE (test code = 7) 30.2 % THYROX. BIND. CAPAC. (test code 1.1 = 99393) T4 (THYROXINE) (test code = 4.3 UG/DL 2819) CORRECTED T4 (FTI) (test code = 3.9 UG/DL 2820) TSH, THIRD GENERATION (test 18.900 UIU/ML code = 2821) HEMOGLOBIN [id number] 00:00:00 Test Item Value Reference Range Interpretation Comments HEMOGLOBIN A1c (test code = 14999) 6.7 % HEMOGLOBIN [id number] 00:00:00 Test Item Value Reference Range Interpretation Comments HEMOGLOBIN A1c (test code = 15096) 6.7 % HEMOGLOBIN [id number] 00:00:00 Test Item Value Reference Range Interpretation Comments HEMOGLOBIN A1c (test code = 55732) 6.7 % LIPID [id number] 00:00:00 Test Item Value Reference Range Interpretation Comments CHOLESTEROL (test code = 2210) 267 MG/DL TRIGLYCERIDES (test code = 2232) 137 MG/DL HDL CHOLESTEROL (test code = 2220) 48 MG/DL CALC LDL CHOL (test code = 2237) 192 MG/DL RISK RATIO LDL/HDL (test code = 4.00 RATIO 2238) LIPID [id number] 00:00:00 Test Item Value Reference Range Interpretation Comments CHOLESTEROL (test code = 2210) 267 MG/DL TRIGLYCERIDES (test code = 2232) 137 MG/DL HDL CHOLESTEROL (test code = 2220) 48 MG/DL CALC LDL CHOL (test code = 2237) 192 MG/DL RISK RATIO LDL/HDL (test code = 4.00 RATIO 2238) COMPREHENSIVE METABOLIC [id number] 00:00:00 Test Item Value Reference Range Interpretation Comments GLUCOSE (test code = 2217) 155 MG/DL BUN (test code = 2208) 14 MG/DL CREATININE (test code = 2214) 0.52 MG/DL eGFR AMER. (test code 122 ML/MIN/1.73 = 13928) eGFR NON- AMER. (test 105 ML/MIN/1.73 code = 22458) CALC BUN/CREAT (test code = 27 RATIO [...] code = 2219) 27 U/L COMPREHENSIVE METABOLIC [id number] 00:00:00 Test Item Value Reference Range Interpretation Comments GLUCOSE (test code = 2217) 155 MG/DL BUN (test code = 2208) 14 MG/DL CREATININE (test code = 2214) 0.52 MG/DL eGFR AMER. (test code 122 ML/MIN/1.73 = 24369) eGFR NON- AMER. (test 105 ML/MIN/1.73 code = 49591) CALC BUN/CREAT (test code = 27 RATIO [...] THYROX. BIND. CAPAC. (test code 1.0 = 82511) T4 (THYROXINE) (test code = 4.7 UG/DL 2819) CORRECTED T4 (FTI) (test code = 4.7 UG/DL 2820) TSH, THIRD GENERATION (test code 0.201 UIU/ML = 2821) THYROID II PROFILE (T3U, T4, T7, TSH)2019 00:00:00 Test Item Value Reference Range Interpretation Comments T-UPTAKE (test code = 2816) 33.1 % THYROX. BIND. CAPAC. (test code 1.0 = 48810) T4 (THYROXINE) (test code = 4.7 UG/DL 2819) CORRECTED T4 (FTI) (test code = 4.7 UG/DL 2820) TSH, THIRD GENERATION (test code 0.201 UIU/ML = 2821) HEMOGLOBIN [id number] 00:00:00 Test Item Value Reference Range Interpretation Comments HEMOGLOBIN A1c (test code = 32584) 6.7 % HEMOGLOBIN [id number] 00:00:00 Test Item Value Reference Range Interpretation Comments HEMOGLOBIN A1c (test code = 36926) 6.7 % HEMOGLOBIN [id number] 00:00:00 Test Item Value Reference Range Interpretation Comments HEMOGLOBIN A1c (test code = 95845) 6.7 % LIPID [id number] 00:00:00 Test Item Value Reference Range Interpretation Comments CHOLESTEROL (test code = 2210) 267 MG/DL TRIGLYCERIDES (test code = 2232) 137 MG/DL HDL CHOLESTEROL (test code = 2220) 48 MG/DL CALC LDL CHOL (test code = 2237) 192 MG/DL RISK RATIO LDL/HDL (test code = 4.00 RATIO 2238) LIPID [id number] 00:00:00 Test Item Value Reference Range Interpretation Comments CHOLESTEROL (test code = 2210) 267 MG/DL TRIGLYCERIDES (test code = 2232) 137 MG/DL HDL CHOLESTEROL (test code = 2220) 48 MG/DL CALC LDL CHOL (test code = 2237) 192 MG/DL RISK RATIO LDL/HDL (test code = 4.00 RATIO 2238) COMPREHENSIVE METABOLIC [id number] 00:00:00 Test Item Value Reference Range Interpretation Comments GLUCOSE (test code = 2217) 155 MG/DL BUN (test code = 2208) 14 MG/DL CREATININE (test code = 2214) 0.52 MG/DL eGFR AMER. (test code 122 ML/MIN/1.73 = 01201) eGFR NON- AMER. (test 105 ML/MIN/1.73 code = 48991) CALC BUN/CREAT (test code = 27 RATIO [...] code = 2219) 27 U/L COMPREHENSIVE METABOLIC [id number] 00:00:00 Test Item Value Reference Range Interpretation Comments GLUCOSE (test code = 2217) 155 MG/DL BUN (test code = 2208) 14 MG/DL CREATININE (test code = 2214) 0.52 MG/DL eGFR AMER. (test code 122 ML/MIN/1.73 = 38428) eGFR NON- AMER. (test 105 ML/MIN/1.73 code = 52299) CALC BUN/CREAT (test code = 27 RATIO [...] THYROX. BIND. CAPAC. (test code 1.0 = 45475) T4 (THYROXINE) (test code = 4.7 UG/DL 2819) CORRECTED T4 (FTI) (test code = 4.7 UG/DL 2820) TSH, THIRD GENERATION (test code 0.201 UIU/ML = 2821) THYROID II PROFILE (T3U, T4, T7, TSH)2019 00:00:00 Test Item Value Reference Range Interpretation Comments T-UPTAKE (test code = 281) 33.1 % THYROX. BIND. CAPAC. (test code 1.0 = 23636) T4 (THYROXINE) (test code = 4.7 UG/DL 2819) CORRECTED T4 (FTI) (test code = 4.7 UG/DL 2820) TSH, THIRD GENERATION (test code 0.201 UIU/ML = 2821) HEMOGLOBIN [id number] 00:00:00 Test Item Value Reference Range Interpretation Comments HEMOGLOBIN A1c (test code = 06861) 6.7 % HEMOGLOBIN [id number] 00:00:00 Test Item Value Reference Range Interpretation Comments HEMOGLOBIN A1c (test code = 69191) 6.7 % LIPID [id number] 00:00:00 Test Item Value Reference Range Interpretation Comments CHOLESTEROL (test code = 2210) 267 MG/DL TRIGLYCERIDES (test code = 2232) 137 MG/DL HDL CHOLESTEROL (test code = 2220) 48 MG/DL CALC LDL CHOL (test code = 2237) 192 MG/DL RISK RATIO LDL/HDL (test code = 4.00 RATIO 2238) COMPREHENSIVE METABOLIC [id number] 00:00:00 Test Item Value Reference Range Interpretation Comments GLUCOSE (test code = 2217) 155 MG/DL BUN (test code = 2208) 14 MG/DL CREATININE (test code = 2214) 0.52 MG/DL eGFR AMER. (test code 122 ML/MIN/1.73 = 09550) eGFR NON- AMER. (test 105 ML/MIN/1.73 code = 22196) CALC BUN/CREAT (test code = 27 RATIO [...] THYROX. BIND. CAPAC. (test code 1.0 = 01795) T4 (THYROXINE) (test code = 4.7 UG/DL 2819) CORRECTED T4 (FTI) (test code = 4.7 UG/DL 2820) TSH, THIRD GENERATION (test code 0.201 UIU/ML = 2821) HEMOGLOBIN [id number] 00:00:00 Test Item Value Reference Range Interpretation Comments HEMOGLOBIN A1c (test code = 63635) 6.7 % HEMOGLOBIN [id number] 00:00:00 Test Item Value Reference Range Interpretation Comments HEMOGLOBIN A1c (test code = 32022) 6.7 % HEMOGLOBIN [id number] 00:00:00 Test Item Value Reference Range Interpretation Comments HEMOGLOBIN A1c (test code = 80107) 6.7 % LIPID [id number] 00:00:00 Test Item Value Reference Range Interpretation Comments CHOLESTEROL (test code = 2210) 267 MG/DL TRIGLYCERIDES (test code = 2232) 137 MG/DL HDL CHOLESTEROL (test code = 2220) 48 MG/DL CALC LDL CHOL (test code = 2237) 192 MG/DL RISK RATIO LDL/HDL (test code = 4.00 RATIO 2238) LIPID [id number] 00:00:00 Test Item Value Reference Range Interpretation Comments CHOLESTEROL (test code = 2210) 267 MG/DL TRIGLYCERIDES (test code = 2232) 137 MG/DL HDL CHOLESTEROL (test code = 2220) 48 MG/DL CALC LDL CHOL (test code = 2237) 192 MG/DL RISK RATIO LDL/HDL (test code = 4.00 RATIO 2238) COMPREHENSIVE METABOLIC [id number] 00:00:00 Test Item Value Reference Range Interpretation Comments GLUCOSE (test code = 2217) 155 MG/DL BUN (test code = 2208) 14 MG/DL CREATININE (test code = 2214) 0.52 MG/DL eGFR AMER. (test code 122 ML/MIN/1.73 = 49489) eGFR NON- AMER. (test 105 ML/MIN/1.73 code = 81811) CALC BUN/CREAT (test code = 27 RATIO [...] code = 2219) 27 U/L COMPREHENSIVE METABOLIC [id number] 00:00:00 Test Item Value Reference Range Interpretation Comments GLUCOSE (test code = 2217) 155 MG/DL BUN (test code = 2208) 14 MG/DL CREATININE (test code = 2214) 0.52 MG/DL eGFR AMER. (test code 122 ML/MIN/1.73 = 61750) eGFR NON- AMER. (test 105 ML/MIN/1.73 code = 94590) CALC BUN/CREAT (test code = 27 RATIO [...] THYROX. BIND. CAPAC. (test code 1.0 = 78523) T4 (THYROXINE) (test code = 4.7 UG/DL 2819) CORRECTED T4 (FTI) (test code = 4.7 UG/DL 2820) TSH, THIRD GENERATION (test code 0.201 UIU/ML = 2821) THYROID II PROFILE (T3U, T4, T7, TSH)2019 00:00:00 Test Item Value Reference Range Interpretation Comments T-UPTAKE (test code = 2817) 33.1 % THYROX. BIND. CAPAC. (test code 1.0 = 60610) T4 (THYROXINE) (test code = 4.7 UG/DL 2819) CORRECTED T4 (FTI) (test code = 4.7 UG/DL 2820) TSH, THIRD GENERATION (test code 0.201 UIU/ML = 2821) SARS-CoV-2 (COVID-19) by RT-PCR (HIGH RISK)2019-09-18 00:00:00 Test Item Value Reference Range Interpretation Comments SARS-CoV-2 INTERPRETATION (test NEGATIVE code = 18171) SOURCE (test code = 06976) NOT SPECIFIED SARS-CoV-2 (COVID-19) by RT-PCR (HIGH RISK)2019-09-18 00:00:00 Test Item Value Reference Range Interpretation Comments SARS-CoV-2 INTERPRETATION (test NEGATIVE code = 71713) SOURCE (test code = 52296) NOT SPECIFIED SARS-CoV-2 (COVID-19) by RT-PCR (HIGH RISK)2019-09-18 00:00:00 Test Item Value Reference Range Interpretation Comments SARS-CoV-2 INTERPRETATION (test NEGATIVE code = 10315) SOURCE (test code = 38902) NOT SPECIFIED SARS-CoV-2 (COVID-19) by RT-PCR (HIGH RISK)2019-09-18 00:00:00 Test Item Value Reference Range Interpretation Comments SARS-CoV-2 INTERPRETATION (test NEGATIVE code = 40711) SOURCE (test code = 54291) NOT SPECIFIED SARS-CoV-2 (COVID-19) by RT-PCR (HIGH RISK)2019-09-18 00:00:00 Test Item Value Reference Range Interpretation Comments SARS-CoV-2 INTERPRETATION (test NEGATIVE code = 82353) SOURCE (test code = 78158) NOT SPECIFIED SARS-CoV-2 (COVID-19) by RT-PCR (HIGH RISK)2019-09-18 00:00:00 Test Item Value Reference Range Interpretation Comments SARS-CoV-2 INTERPRETATION (test NEGATIVE code = 88670) SOURCE (test code = 67834) NOT SPECIFIED SARS-CoV-2 (COVID-19) by RT-PCR (HIGH RISK)2019-09-18 00:00:00 Test Item Value Reference Range Interpretation Comments SARS-CoV-2 INTERPRETATION (test NEGATIVE code = 01129) SOURCE (test code = 43608) NOT SPECIFIED [id number] 00:00:00 Test Item Value Reference Range Interpretation Comments TSH, THIRD GENERATION (test code 2.490 UIU/ML = 2821) [id number] 00:00:00 Test Item Value Reference Range Interpretation Comments TSH, THIRD GENERATION (test code 2.490 UIU/ML = 2821) [id number] 00:00:00 Test Item Value Reference Range Interpretation Comments TSH, THIRD GENERATION (test code 2.490 UIU/ML = 2821) HEMOGLOBIN [id number] 00:00:00 Test Item Value Reference Range Interpretation Comments HEMOGLOBIN A1c (test code = 56360) 6.4 % HEMOGLOBIN [id number] 00:00:00 Test Item Value Reference Range Interpretation Comments HEMOGLOBIN A1c (test code = 32973) 6.4 % HEMOGLOBIN [id number] 00:00:00 Test Item Value Reference Range Interpretation Comments HEMOGLOBIN A1c (test code = 30650) 6.4 % COMPREHENSIVE METABOLIC [id number] 00:00:00 Test Item Value Reference Range Interpretation Comments GLUCOSE (test code = 2217) 206 MG/DL BUN (test code = 2208) 23 MG/DL CREATININE (test code = 2214) 0.67 MG/DL eGFR AMER. (test code 112 ML/MIN/1.73 = 73679) eGFR NON- AMER. (test 97 ML/MIN/1.73 code = 53788) CALC BUN/CREAT (test code = 34 RATIO [...] code = 2219) 25 U/L COMPREHENSIVE METABOLIC [id number] 00:00:00 Test Item Value Reference Range Interpretation Comments GLUCOSE (test code = 2217) 206 MG/DL BUN (test code = 2208) 23 MG/DL CREATININE (test code = 2214) 0.67 MG/DL eGFR AMER. (test code 112 ML/MIN/1.73 = 15341) eGFR NON- AMER. (test 97 ML/MIN/1.73 code = 11503) CALC BUN/CREAT (test code = 34 RATIO [...] ALT (test code = 2219) 25 U/L [id number] 00:00:00 Test Item Value Reference Range Interpretation Comments TSH, THIRD GENERATION (test code 2.490 UIU/ML = 2821) [id number] 00:00:00 Test Item Value Reference Range Interpretation Comments TSH, THIRD GENERATION (test code 2.490 UIU/ML = 2821) [id number] 00:00:00 Test Item Value Reference Range Interpretation Comments TSH, THIRD GENERATION (test code 2.490 UIU/ML = 2821) HEMOGLOBIN [id number] 00:00:00 Test Item Value Reference Range Interpretation Comments HEMOGLOBIN A1c (test code = 40535) 6.4 % HEMOGLOBIN [id number] 00:00:00 Test Item Value Reference Range Interpretation Comments HEMOGLOBIN A1c (test code = 17558) 6.4 % HEMOGLOBIN [id number] 00:00:00 Test Item Value Reference Range Interpretation Comments HEMOGLOBIN A1c (test code = 84705) 6.4 % COMPREHENSIVE METABOLIC [id number] 00:00:00 Test Item Value Reference Range Interpretation Comments GLUCOSE (test code = 2217) 206 MG/DL BUN (test code = 2208) 23 MG/DL CREATININE (test code = 2214) 0.67 MG/DL eGFR AMER. (test code 112 ML/MIN/1.73 = 79948) eGFR NON- AMER. (test 97 ML/MIN/1.73 code = 74138) CALC BUN/CREAT (test code = 34 RATIO [...] code = 2219) 25 U/L COMPREHENSIVE METABOLIC [id number] 00:00:00 Test Item Value Reference Range Interpretation Comments GLUCOSE (test code = 2217) 206 MG/DL BUN (test code = 2208) 23 MG/DL CREATININE (test code = 2214) 0.67 MG/DL eGFR AMER. (test code 112 ML/MIN/1.73 = 63239) eGFR NON- AMER. (test 97 ML/MIN/1.73 code = 84604) CALC BUN/CREAT (test code = 34 RATIO [...] ALT (test code = 2219) 25 U/L [id number] 00:00:00 Test Item Value Reference Range Interpretation Comments TSH, THIRD GENERATION (test code 2.490 UIU/ML = 2821) [id number] 00:00:00 Test Item Value Reference Range Interpretation Comments TSH, THIRD GENERATION (test code 2.490 UIU/ML = 2821) HEMOGLOBIN [id number] 00:00:00 Test Item Value Reference Range Interpretation Comments HEMOGLOBIN A1c (test code = 05989) 6.4 % HEMOGLOBIN [id number] 00:00:00 Test Item Value Reference Range Interpretation Comments HEMOGLOBIN A1c (test code = 36665) 6.4 % COMPREHENSIVE METABOLIC [id number] 00:00:00 Test Item Value Reference Range Interpretation Comments GLUCOSE (test code = 2217) 206 MG/DL BUN (test code = 2208) 23 MG/DL CREATININE (test code = 2214) 0.67 MG/DL eGFR AMER. (test code 112 ML/MIN/1.73 = 61346) eGFR NON- AMER. (test 97 ML/MIN/1.73 code = 47914) CALC BUN/CREAT (test code = 34 RATIO [...] ALT (test code = 2219) 25 U/L [id number] 00:00:00 Test Item Value Reference Range Interpretation Comments TSH, THIRD GENERATION (test code 2.490 UIU/ML = 2821) [id number] 00:00:00 Test Item Value Reference Range Interpretation Comments TSH, THIRD GENERATION (test code 2.490 UIU/ML = 2821) [id number] 00:00:00 Test Item Value Reference Range Interpretation Comments TSH, THIRD GENERATION (test code 2.490 UIU/ML = 2821) HEMOGLOBIN [id number] 00:00:00 Test Item Value Reference Range Interpretation Comments HEMOGLOBIN A1c (test code = 00264) 6.4 % HEMOGLOBIN [id number] 00:00:00 Test Item Value Reference Range Interpretation Comments HEMOGLOBIN A1c (test code = 71754) 6.4 % HEMOGLOBIN [id number] 00:00:00 Test Item Value Reference Range Interpretation Comments HEMOGLOBIN A1c (test code = 94490) 6.4 % COMPREHENSIVE METABOLIC [id number] 00:00:00 Test Item Value Reference Range Interpretation Comments GLUCOSE (test code = 2217) 206 MG/DL BUN (test code = 2208) 23 MG/DL CREATININE (test code = 2214) 0.67 MG/DL eGFR AMER. (test code 112 ML/MIN/1.73 = 71568) eGFR NON- AMER. (test 97 ML/MIN/1.73 code = 42425) CALC BUN/CREAT (test code = 34 RATIO [...] code = 2219) 25 U/L COMPREHENSIVE METABOLIC [id number] 00:00:00 Test Item Value Reference Range Interpretation Comments GLUCOSE (test code = 2217) 206 MG/DL BUN (test code = 2208) 23 MG/DL CREATININE (test code = 2214) 0.67 MG/DL eGFR AMER. (test code 112 ML/MIN/1.73 = 67801) eGFR NON- AMER. (test 97 ML/MIN/1.73 code = 77529) CALC BUN/CREAT (test code = 34 RATIO [...] = 2219) 25 U/L VAGINAL PATHOGENS DNA [id number] 00:00:00 Test Item Value Reference Range Interpretation Comments MARK SPECIES (test code = 75728) NEGATIVE G. VAGINALIS (test code = 63777) NEGATIVE T. VAGINALIS (test code = 16161) NEGATIVE VAGINAL PATHOGENS DNA [id number] 00:00:00 Test Item Value Reference Range Interpretation Comments MARK SPECIES (test code = 82602) NEGATIVE G. VAGINALIS (test code = 68291) NEGATIVE T. VAGINALIS (test code = 70407) NEGATIVE VAGINAL PATHOGENS DNA [id number] 00:00:00 Test Item Value Reference Range Interpretation Comments MARK SPECIES (test code = 05159) NEGATIVE G. VAGINALIS (test code = 76679) NEGATIVE T. VAGINALIS (test code = 00373) NEGATIVE VAGINAL PATHOGENS DNA [id number] 00:00:00 Test Item Value Reference Range Interpretation Comments MARK SPECIES (test code = 84109) NEGATIVE G. VAGINALIS (test code = 51000) NEGATIVE T. VAGINALIS (test code = 62025) NEGATIVE VAGINAL PATHOGENS DNA [id number] 00:00:00 Test Item Value Reference Range Interpretation Comments MARK SPECIES (test code = 62587) NEGATIVE G. VAGINALIS (test code = 71524) NEGATIVE T. VAGINALIS (test code = 35562) NEGATIVE VAGINAL PATHOGENS DNA [id number] 00:00:00 Test Item Value Reference Range Interpretation Comments MARK SPECIES (test code = 00032) NEGATIVE G. VAGINALIS (test code = 25642) NEGATIVE T. VAGINALIS (test code = 17174) NEGATIVE VAGINAL PATHOGENS DNA [id number] 00:00:00 Test Item Value Reference Range Interpretation Comments MARK SPECIES (test code = 23098) NEGATIVE G. VAGINALIS (test code = 35521) NEGATIVE T. VAGINALIS (test code = 96291) NEGATIVE HEMOGLOBIN A1c [ADDED]2018-12-01 00:00:00 Test Item Value Reference Range Interpretation Comments HEMOGLOBIN A1c (test code = 24165) 6.7 % HEMOGLOBIN A1c [ADDED]2018-12-01 00:00:00 Test Item Value Reference Range Interpretation Comments HEMOGLOBIN A1c (test code = 67740) 6.7 % HEMOGLOBIN A1c [ADDED]2018-12-01 00:00:00 Test Item Value Reference Range Interpretation Comments HEMOGLOBIN A1c (test code = 57269) 6.7 % COMPREHENSIVE METABOLIC PANEL [ADDED]2018-12-01 00:00:00 Test Item Value Reference Range Interpretation Comments GLUCOSE (test code = 2217) 136 MG/DL BUN (test code = 2208) 15 MG/DL CREATININE (test code = 2214) 0.64 MG/DL eGFR AMER. (test code 115 ML/MIN/1.73 = 78961) eGFR NON- AMER. (test 99 ML/MIN/1.73 code = 93936) CALC BUN/CREAT (test code = 23 RATIO [...] eGFR AMER. (test code 115 ML/MIN/1.73 = 18873) eGFR NON- AMER. (test 99 ML/MIN/1.73 code = 61007) CALC BUN/CREAT (test code = 23 RATIO [...] Interpretation Comments HEMOGLOBIN A1c (test code = 89066) 6.7 % HEMOGLOBIN A1c [ADDED]2018-12-01 00:00:00 Test Item Value Reference Range Interpretation Comments HEMOGLOBIN A1c (test code = 15592) 6.7 % HEMOGLOBIN A1c [ADDED]2018-12-01 00:00:00 Test Item Value Reference Range Interpretation Comments HEMOGLOBIN A1c (test code = 27466) 6.7 % COMPREHENSIVE METABOLIC PANEL [ADDED]2018-12-01 00:00:00 Test Item Value Reference Range Interpretation Comments GLUCOSE (test code = 2217) 136 MG/DL BUN (test code = 2208) 15 MG/DL CREATININE (test code = 2214) 0.64 MG/DL eGFR AMER. (test code 115 ML/MIN/1.73 = 28231) eGFR NON- AMER. (test 99 ML/MIN/1.73 code = 67685) CALC BUN/CREAT (test code = 23 RATIO [...] eGFR AMER. (test code 115 ML/MIN/1.73 = 93471) eGFR NON- AMER. (test 99 ML/MIN/1.73 code = 72992) CALC BUN/CREAT (test code = 23 RATIO [...] Interpretation Comments HEMOGLOBIN A1c (test code = 42801) 6.7 % HEMOGLOBIN A1c [ADDED]2018-12-01 00:00:00 Test Item Value Reference Range Interpretation Comments HEMOGLOBIN A1c (test code = 08592) 6.7 % COMPREHENSIVE METABOLIC PANEL [ADDED]2018-12-01 00:00:00 Test Item Value Reference Range Interpretation Comments GLUCOSE (test code = 2217) 136 MG/DL BUN (test code = 2208) 15 MG/DL CREATININE (test code = 2214) 0.64 MG/DL eGFR AMER. (test code 115 ML/MIN/1.73 = 70514) eGFR NON- AMER. (test 99 ML/MIN/1.73 code = 04970) CALC BUN/CREAT (test code = 23 RATIO [...] Interpretation Comments HEMOGLOBIN A1c (test code = 30576) 6.7 % HEMOGLOBIN A1c [ADDED]2018-12-01 00:00:00 Test Item Value Reference Range Interpretation Comments HEMOGLOBIN A1c (test code = 71275) 6.7 % HEMOGLOBIN A1c [ADDED]2018-12-01 00:00:00 Test Item Value Reference Range Interpretation Comments HEMOGLOBIN A1c (test code = 74770) 6.7 % COMPREHENSIVE METABOLIC PANEL [ADDED]2018-12-01 00:00:00 Test Item Value Reference Range Interpretation Comments GLUCOSE (test code = 2217) 136 MG/DL BUN (test code = 2208) 15 MG/DL CREATININE (test code = 2214) 0.64 MG/DL eGFR AMER. (test code 115 ML/MIN/1.73 = 05057) eGFR NON- AMER. (test 99 ML/MIN/1.73 code = 22564) CALC BUN/CREAT (test code = 23 RATIO [...] eGFR AMER. (test code 115 ML/MIN/1.73 = 35775) eGFR NON- AMER. (test 99 ML/MIN/1.73 code = 54238) CALC BUN/CREAT (test code = 23 RATIO [...] code 1.280 UIU/ML = 2821) CBC W/AUTO [id number] 00:00:00 Test Item Value Reference Range Interpretation [...] code = 1015) 346 K/UL CBC W/AUTO [id number] 00:00:00 Test Item Value Reference Range Interpretation [...] code = 1015) 346 K/UL CBC W/AUTO [id number] 00:00:00 Test Item Value Reference Range Interpretation [...] (test code = 1015) 346 K/UL HEMOGLOBIN [id number] 00:00:00 Test Item Value Reference Range Interpretation Comments HEMOGLOBIN A1c (test code = 75078) 5.9 % HEMOGLOBIN [id number] 00:00:00 Test Item Value Reference Range Interpretation Comments HEMOGLOBIN A1c (test code = 20450) 5.9 % HEMOGLOBIN [id number] 00:00:00 Test Item Value Reference Range Interpretation Comments HEMOGLOBIN A1c (test code = 22573) 5.9 % LIPID [id number] 00:00:00 Test Item Value Reference Range Interpretation Comments CHOLESTEROL (test code = 2210) 318 MG/DL TRIGLYCERIDES (test code = 2232) 263 MG/DL HDL CHOLESTEROL (test code = 2220) 51 MG/DL CALC LDL CHOL (test code = 2237) 214 MG/DL RISK RATIO LDL/HDL (test code = 4.20 RATIO 2238) LIPID [id number] 00:00:00 Test Item Value Reference Range Interpretation Comments CHOLESTEROL (test code = 2210) 318 MG/DL TRIGLYCERIDES (test code = 2232) 263 MG/DL HDL CHOLESTEROL (test code = 2220) 51 MG/DL CALC LDL CHOL (test code = 2237) 214 MG/DL RISK RATIO LDL/HDL (test code = 4.20 RATIO 2238) COMPREHENSIVE METABOLIC [id number] 00:00:00 Test Item Value Reference Range Interpretation Comments GLUCOSE (test code = 2217) 113 MG/DL BUN (test code = 2208) 18 MG/DL CREATININE (test code = 2214) 0.70 MG/DL eGFR AMER. (test code 111 ML/MIN/1.73 = 75152) eGFR NON- AMER. (test 96 ML/MIN/1.73 code = 53701) CALC BUN/CREAT (test code = 26 RATIO [...] code = 2219) 31 U/L COMPREHENSIVE METABOLIC [id number] 00:00:00 Test Item Value Reference Range Interpretation Comments GLUCOSE (test code = 2217) 113 MG/DL BUN (test code = 2208) 18 MG/DL CREATININE (test code = 2214) 0.70 MG/DL eGFR AMER. (test code 111 ML/MIN/1.73 = 54126) eGFR NON- AMER. (test 96 ML/MIN/1.73 code = 78834) CALC BUN/CREAT (test code = 26 RATIO [...] ALT (test code = 2219) 31 U/L [id number] 00:00:00 Test Item Value Reference Range Interpretation Comments TSH, THIRD GENERATION (test code 2.520 UIU/ML = 2821) [id number] 00:00:00 Test Item Value Reference Range Interpretation Comments TSH, THIRD GENERATION (test code 2.520 UIU/ML = 2821) [id number] 00:00:00 Test Item Value Reference Range Interpretation Comments TSH, THIRD GENERATION (test code 2.520 UIU/ML = 2821) CBC W/AUTO [id number] 00:00:00 Test Item Value Reference Range Interpretation [...] code = 1015) 346 K/UL CBC W/AUTO [id number] 00:00:00 Test Item Value Reference Range Interpretation [...] code = 1015) 346 K/UL CBC W/AUTO [id number] 00:00:00 Test Item Value Reference Range Interpretation [...] (test code = 1015) 346 K/UL HEMOGLOBIN [id number] 00:00:00 Test Item Value Reference Range Interpretation Comments HEMOGLOBIN A1c (test code = 58943) 5.9 % HEMOGLOBIN [id number] 00:00:00 Test Item Value Reference Range Interpretation Comments HEMOGLOBIN A1c (test code = 83385) 5.9 % HEMOGLOBIN [id number] 00:00:00 Test Item Value Reference Range Interpretation Comments HEMOGLOBIN A1c (test code = 38689) 5.9 % LIPID [id number] 00:00:00 Test Item Value Reference Range Interpretation Comments CHOLESTEROL (test code = 2210) 318 MG/DL TRIGLYCERIDES (test code = 2232) 263 MG/DL HDL CHOLESTEROL (test code = 2220) 51 MG/DL CALC LDL CHOL (test code = 2237) 214 MG/DL RISK RATIO LDL/HDL (test code = 4.20 RATIO 2238) LIPID [id number] 00:00:00 Test Item Value Reference Range Interpretation Comments CHOLESTEROL (test code = 2210) 318 MG/DL TRIGLYCERIDES (test code = 2232) 263 MG/DL HDL CHOLESTEROL (test code = 2220) 51 MG/DL CALC LDL CHOL (test code = 2237) 214 MG/DL RISK RATIO LDL/HDL (test code = 4.20 RATIO 2238) COMPREHENSIVE METABOLIC [id number] 00:00:00 Test Item Value Reference Range Interpretation Comments GLUCOSE (test code = 2217) 113 MG/DL BUN (test code = 2208) 18 MG/DL CREATININE (test code = 2214) 0.70 MG/DL eGFR AMER. (test code 111 ML/MIN/1.73 = 82197) eGFR NON- AMER. (test 96 ML/MIN/1.73 code = 67063) CALC BUN/CREAT (test code = 26 RATIO [...] code = 2219) 31 U/L COMPREHENSIVE METABOLIC [id number] 00:00:00 Test Item Value Reference Range Interpretation Comments GLUCOSE (test code = 2217) 113 MG/DL BUN (test code = 2208) 18 MG/DL CREATININE (test code = 2214) 0.70 MG/DL eGFR AMER. (test code 111 ML/MIN/1.73 = 54671) eGFR NON- AMER. (test 96 ML/MIN/1.73 code = 20171) CALC BUN/CREAT (test code = 26 RATIO [...] ALT (test code = 2219) 31 U/L [id number] 00:00:00 Test Item Value Reference Range Interpretation Comments TSH, THIRD GENERATION (test code 2.520 UIU/ML = 2821) [id number] 00:00:00 Test Item Value Reference Range Interpretation Comments TSH, THIRD GENERATION (test code 2.520 UIU/ML = 2821) [id number] 00:00:00 Test Item Value Reference Range Interpretation Comments TSH, THIRD GENERATION (test code 2.520 UIU/ML = 2821) CBC W/AUTO [id number] 00:00:00 Test Item Value Reference Range Interpretation [...] code = 1015) 346 K/UL CBC W/AUTO [id number] 00:00:00 Test Item Value Reference Range Interpretation [...] (test code = 1015) 346 K/UL HEMOGLOBIN [id number] 00:00:00 Test Item Value Reference Range Interpretation Comments HEMOGLOBIN A1c (test code = 61201) 5.9 % HEMOGLOBIN [id number] 00:00:00 Test Item Value Reference Range Interpretation Comments HEMOGLOBIN A1c (test code = 38586) 5.9 % LIPID [id number] 00:00:00 Test Item Value Reference Range Interpretation Comments CHOLESTEROL (test code = 2210) 318 MG/DL TRIGLYCERIDES (test code = 2232) 263 MG/DL HDL CHOLESTEROL (test code = 2220) 51 MG/DL CALC LDL CHOL (test code = 2237) 214 MG/DL RISK RATIO LDL/HDL (test code = 4.20 RATIO 2238) COMPREHENSIVE METABOLIC [id number] 00:00:00 Test Item Value Reference Range Interpretation Comments GLUCOSE (test code = 2217) 113 MG/DL BUN (test code = 2208) 18 MG/DL CREATININE (test code = 2214) 0.70 MG/DL eGFR AMER. (test code 111 ML/MIN/1.73 = 34059) eGFR NON- AMER. (test 96 ML/MIN/1.73 code = 19819) CALC BUN/CREAT (test code = 26 RATIO [...] ALT (test code = 2219) 31 U/L [id number] 00:00:00 Test Item Value Reference Range Interpretation Comments TSH, THIRD GENERATION (test code 2.520 UIU/ML = 2821) [id number] 00:00:00 Test Item Value Reference Range Interpretation Comments TSH, THIRD GENERATION (test code 2.520 UIU/ML = 2821) CBC W/AUTO [id number] 00:00:00 Test Item Value Reference Range Interpretation [...] code = 1015) 346 K/UL CBC W/AUTO [id number] 00:00:00 Test Item Value Reference Range Interpretation [...] code = 1015) 346 K/UL CBC W/AUTO [id number] 00:00:00 Test Item Value Reference Range Interpretation [...] (test code = 1015) 346 K/UL HEMOGLOBIN [id number] 00:00:00 Test Item Value Reference Range Interpretation Comments HEMOGLOBIN A1c (test code = 91756) 5.9 % HEMOGLOBIN [id number] 00:00:00 Test Item Value Reference Range Interpretation Comments HEMOGLOBIN A1c (test code = 21915) 5.9 % HEMOGLOBIN [id number] 00:00:00 Test Item Value Reference Range Interpretation Comments HEMOGLOBIN A1c (test code = 74438) 5.9 % LIPID [id number] 00:00:00 Test Item Value Reference Range Interpretation Comments CHOLESTEROL (test code = 2210) 318 MG/DL TRIGLYCERIDES (test code = 2232) 263 MG/DL HDL CHOLESTEROL (test code = 2220) 51 MG/DL CALC LDL CHOL (test code = 2237) 214 MG/DL RISK RATIO LDL/HDL (test code = 4.20 RATIO 2238) LIPID [id number] 00:00:00 Test Item Value Reference Range Interpretation Comments CHOLESTEROL (test code = 2210) 318 MG/DL TRIGLYCERIDES (test code = 2232) 263 MG/DL HDL CHOLESTEROL (test code = 2220) 51 MG/DL CALC LDL CHOL (test code = 2237) 214 MG/DL RISK RATIO LDL/HDL (test code = 4.20 RATIO 2238) COMPREHENSIVE METABOLIC [id number] 00:00:00 Test Item Value Reference Range Interpretation Comments GLUCOSE (test code = 2217) 113 MG/DL BUN (test code = 2208) 18 MG/DL CREATININE (test code = 2214) 0.70 MG/DL eGFR AMER. (test code 111 ML/MIN/1.73 = 65350) eGFR NON- AMER. (test 96 ML/MIN/1.73 code = 14625) CALC BUN/CREAT (test code = 26 RATIO [...] code = 2219) 31 U/L COMPREHENSIVE METABOLIC [id number] 00:00:00 Test Item Value Reference Range Interpretation Comments GLUCOSE (test code = 2217) 113 MG/DL BUN (test code = 2208) 18 MG/DL CREATININE (test code = 2214) 0.70 MG/DL eGFR AMER. (test code 111 ML/MIN/1.73 = 94838) eGFR NON- AMER. (test 96 ML/MIN/1.73 code = 87024) CALC BUN/CREAT (test code = 26 RATIO [...] ALT (test code = 2219) 31 U/L [id number] 00:00:00 Test Item Value Reference Range Interpretation Comments TSH, THIRD GENERATION (test code 2.520 UIU/ML = 2821) [id number] 00:00:00 Test Item Value Reference Range Interpretation Comments TSH, THIRD GENERATION (test code 2.520 UIU/ML = 2821) [id number] 00:00:00 Test Item Value Reference Range Interpretation Comments TSH, THIRD GENERATION (test code 2.520 UIU/ML = 2821) CULTURE, [id number] 00:00:00 Test Item Value Reference Range Interpretation Comments CULTURE, URINE (test SPECIMEN NUMBER: code = 45058) [id number] CULTURE, [id number] 00:00:00 Test Item Value Reference Range Interpretation Comments CULTURE, URINE (test SPECIMEN NUMBER: code = 06514) [id number] CULTURE, [id number] 00:00:00 Test Item Value Reference Range Interpretation Comments CULTURE, URINE (test SPECIMEN NUMBER: code = 89964) [id number] CULTURE, [id number] 00:00:00 Test Item Value Reference Range Interpretation Comments CULTURE, URINE (test SPECIMEN NUMBER: code = 68557) [id number] CULTURE, [id number] 00:00:00 Test Item Value Reference Range Interpretation Comments CULTURE, URINE (test SPECIMEN NUMBER: code = 79498) [id number] CULTURE, [id number] 00:00:00 Test Item Value Reference Range Interpretation Comments CULTURE, URINE (test SPECIMEN NUMBER: code = 59539) [id number] CULTURE, [id number] 00:00:00 Test Item Value Reference Range Interpretation Comments CULTURE, URINE (test SPECIMEN NUMBER: code = 51100) [id number] CULTURE, [id number] 00:00:00 Test Item Value Reference Range Interpretation Comments CULTURE, URINE (test SPECIMEN NUMBER: code = 51843) [id number] CULTURE, [id number] 00:00:00 Test Item Value Reference Range Interpretation Comments CULTURE, URINE (test SPECIMEN NUMBER: code = 65870) [id number] CULTURE, [id number] 00:00:00 Test Item Value Reference Range Interpretation Comments CULTURE, URINE (test SPECIMEN NUMBER: code = 39719) [id number] CULTURE, [id number] 00:00:00 Test Item Value Reference Range Interpretation Comments CULTURE, URINE (test SPECIMEN NUMBER: code = 49467) [id number] CULTURE, [id number] 00:00:00 Test Item Value Reference Range Interpretation Comments CULTURE, URINE (test SPECIMEN NUMBER: code = 36095) [id number] CULTURE, [id number] 00:00:00 Test Item Value Reference Range Interpretation Comments CULTURE, URINE (test SPECIMEN NUMBER: code = 85003) [id number] CULTURE, [id number] 00:00:00 Test Item Value Reference Range Interpretation Comments CULTURE, URINE (test SPECIMEN NUMBER: code = 45375) [id number] BASIC METABOLIC [id number] 00:00:00 Test Item Value Reference Range Interpretation Comments GLUCOSE (test code = 2217) 135 MG/DL BUN (test code = 2208) 25 MG/DL CREATININE (test code = 2214) 0.76 MG/DL eGFR AMER. (test code 101 ML/MIN/1.73 = 82085) eGFR NON- AMER. (test 87 ML/MIN/1.73 code = 42670) SODIUM (test code = 2231) 139 MEQ/L POTASSIUM (test code = 2228) 4.7 MEQ/L CHLORIDE (test code = 2215) 99 MEQ/L CARBON DIOXIDE (test code = 26 MEQ/L 2206) CALCIUM (test code = 2209) 9.4 MG/DL BASIC METABOLIC [id number] 00:00:00 Test Item Value Reference Range Interpretation Comments GLUCOSE (test code = 2217) 135 MG/DL BUN (test code = 2208) 25 MG/DL CREATININE (test code = 2214) 0.76 MG/DL eGFR AMER. (test code 101 ML/MIN/1.73 = 27511) eGFR NON- AMER. (test 87 ML/MIN/1.73 code = 78148) SODIUM (test code = 2231) 139 MEQ/L POTASSIUM (test code = 2228) 4.7 MEQ/L CHLORIDE (test code = 2215) 99 MEQ/L CARBON DIOXIDE (test code = 26 MEQ/L 2206) CALCIUM (test code = 2209) 9.4 MG/DL LIPID [id number] 00:00:00 Test Item Value Reference Range Interpretation Comments CHOLESTEROL (test code = 2210) 262 MG/DL TRIGLYCERIDES (test code = 2232) 300 MG/DL HDL CHOLESTEROL (test code = 2220) 36 MG/DL CALC LDL CHOL (test code = 2237) 166 MG/DL RISK RATIO LDL/HDL (test code = 4.61 RATIO 2238) LIPID [id number] 00:00:00 Test Item Value Reference Range Interpretation Comments CHOLESTEROL (test code = 2210) 262 MG/DL TRIGLYCERIDES (test code = 2232) 300 MG/DL HDL CHOLESTEROL (test code = 2220) 36 MG/DL CALC LDL CHOL (test code = 2237) 166 MG/DL RISK RATIO LDL/HDL (test code = 4.61 RATIO 2238) HEMOGLOBIN [id number] 00:00:00 Test Item Value Reference Range Interpretation Comments HEMOGLOBIN A1c (test code = 23132) 6.2 % HEMOGLOBIN [id number] 00:00:00 Test Item Value Reference Range Interpretation Comments HEMOGLOBIN A1c (test code = 68150) 6.2 % HEMOGLOBIN [id number] 00:00:00 Test Item Value Reference Range Interpretation Comments HEMOGLOBIN A1c (test code = 04759) 6.2 % [id number] 00:00:00 Test Item Value Reference Range Interpretation Comments TSH, THIRD GENERATION (test code 0.988 UIU/ML = 2821) [id number] 00:00:00 Test Item Value Reference Range Interpretation Comments TSH, THIRD GENERATION (test code 0.988 UIU/ML = 2821) [id number] 00:00:00 Test Item Value Reference Range Interpretation Comments TSH, THIRD GENERATION (test code 0.988 UIU/ML = 2821) BASIC METABOLIC [id number] 00:00:00 Test Item Value Reference Range Interpretation Comments GLUCOSE (test code = 2217) 135 MG/DL BUN (test code = 2208) 25 MG/DL CREATININE (test code = 2214) 0.76 MG/DL eGFR AMER. (test code 101 ML/MIN/1.73 = 08980) eGFR NON- AMER. (test 87 ML/MIN/1.73 code = 63120) SODIUM (test code = 2231) 139 MEQ/L POTASSIUM (test code = 2228) 4.7 MEQ/L CHLORIDE (test code = 2215) 99 MEQ/L CARBON DIOXIDE (test code = 26 MEQ/L 2206) CALCIUM (test code = 2209) 9.4 MG/DL BASIC METABOLIC [id number] 00:00:00 Test Item Value Reference Range Interpretation Comments GLUCOSE (test code = 2217) 135 MG/DL BUN (test code = 2208) 25 MG/DL CREATININE (test code = 2214) 0.76 MG/DL eGFR AMER. (test code 101 ML/MIN/1.73 = 70240) eGFR NON- AMER. (test 87 ML/MIN/1.73 code = 06838) SODIUM (test code = 2231) 139 MEQ/L POTASSIUM (test code = 2228) 4.7 MEQ/L CHLORIDE (test code = 2215) 99 MEQ/L CARBON DIOXIDE (test code = 26 MEQ/L 2206) CALCIUM (test code = 2209) 9.4 MG/DL LIPID [id number] 00:00:00 Test Item Value Reference Range Interpretation Comments CHOLESTEROL (test code = 2210) 262 MG/DL TRIGLYCERIDES (test code = 2232) 300 MG/DL HDL CHOLESTEROL (test code = 2220) 36 MG/DL CALC LDL CHOL (test code = 2237) 166 MG/DL RISK RATIO LDL/HDL (test code = 4.61 RATIO 2238) LIPID [id number] 00:00:00 Test Item Value Reference Range Interpretation Comments CHOLESTEROL (test code = 2210) 262 MG/DL TRIGLYCERIDES (test code = 2232) 300 MG/DL HDL CHOLESTEROL (test code = 2220) 36 MG/DL CALC LDL CHOL (test code = 2237) 166 MG/DL RISK RATIO LDL/HDL (test code = 4.61 RATIO 2238) HEMOGLOBIN [id number] 00:00:00 Test Item Value Reference Range Interpretation Comments HEMOGLOBIN A1c (test code = 09681) 6.2 % HEMOGLOBIN [id number] 00:00:00 Test Item Value Reference Range Interpretation Comments HEMOGLOBIN A1c (test code = 94018) 6.2 % HEMOGLOBIN [id number] 00:00:00 Test Item Value Reference Range Interpretation Comments HEMOGLOBIN A1c (test code = 47959) 6.2 % [id number] 00:00:00 Test Item Value Reference Range Interpretation Comments TSH, THIRD GENERATION (test code 0.988 UIU/ML = 2821) [id number] 00:00:00 Test Item Value Reference Range Interpretation Comments TSH, THIRD GENERATION (test code 0.988 UIU/ML = 2821) [id number] 00:00:00 Test Item Value Reference Range Interpretation Comments TSH, THIRD GENERATION (test code 0.988 UIU/ML = 2821) BASIC METABOLIC [id number] 00:00:00 Test Item Value Reference Range Interpretation Comments GLUCOSE (test code = 2217) 135 MG/DL BUN (test code = 2208) 25 MG/DL CREATININE (test code = 2214) 0.76 MG/DL eGFR AMER. (test code 101 ML/MIN/1.73 = 21498) eGFR NON- AMER. (test 87 ML/MIN/1.73 code = 76682) SODIUM (test code = 2231) 139 MEQ/L POTASSIUM (test code = 2228) 4.7 MEQ/L CHLORIDE (test code = 2215) 99 MEQ/L CARBON DIOXIDE (test code = 26 MEQ/L 2206) CALCIUM (test code = 2209) 9.4 MG/DL LIPID [id number] 00:00:00 Test Item Value Reference Range Interpretation Comments CHOLESTEROL (test code = 2210) 262 MG/DL TRIGLYCERIDES (test code = 2232) 300 MG/DL HDL CHOLESTEROL (test code = 2220) 36 MG/DL CALC LDL CHOL (test code = 2237) 166 MG/DL RISK RATIO LDL/HDL (test code = 4.61 RATIO 2238) HEMOGLOBIN [id number] 00:00:00 Test Item Value Reference Range Interpretation Comments HEMOGLOBIN A1c (test code = 24150) 6.2 % HEMOGLOBIN [id number] 00:00:00 Test Item Value Reference Range Interpretation Comments HEMOGLOBIN A1c (test code = 20979) 6.2 % [id number] 00:00:00 Test Item Value Reference Range Interpretation Comments TSH, THIRD GENERATION (test code 0.988 UIU/ML = 2821) [id number] 00:00:00 Test Item Value Reference Range Interpretation Comments TSH, THIRD GENERATION (test code 0.988 UIU/ML = 2821) BASIC METABOLIC [id number] 00:00:00 Test Item Value Reference Range Interpretation Comments GLUCOSE (test code = 2217) 135 MG/DL BUN (test code = 2208) 25 MG/DL CREATININE (test code = 2214) 0.76 MG/DL eGFR AMER. (test code 101 ML/MIN/1.73 = 56875) eGFR NON- AMER. (test 87 ML/MIN/1.73 code = 81571) SODIUM (test code = 2231) 139 MEQ/L POTASSIUM (test code = 2228) 4.7 MEQ/L CHLORIDE (test code = 2215) 99 MEQ/L CARBON DIOXIDE (test code = 26 MEQ/L 2206) CALCIUM (test code = 2209) 9.4 MG/DL BASIC METABOLIC [id number] 00:00:00 Test Item Value Reference Range Interpretation Comments GLUCOSE (test code = 2217) 135 MG/DL BUN (test code = 2208) 25 MG/DL CREATININE (test code = 2214) 0.76 MG/DL eGFR AMER. (test code 101 ML/MIN/1.73 = 99153) eGFR NON- AMER. (test 87 ML/MIN/1.73 code = 01671) SODIUM (test code = 2231) 139 MEQ/L POTASSIUM (test code = 2228) 4.7 MEQ/L CHLORIDE (test code = 2215) 99 MEQ/L CARBON DIOXIDE (test code = 26 MEQ/L 2206) CALCIUM (test code = 2209) 9.4 MG/DL LIPID [id number] 00:00:00 Test Item Value Reference Range Interpretation Comments CHOLESTEROL (test code = 2210) 262 MG/DL TRIGLYCERIDES (test code = 2232) 300 MG/DL HDL CHOLESTEROL (test code = 2220) 36 MG/DL CALC LDL CHOL (test code = 2237) 166 MG/DL RISK RATIO LDL/HDL (test code = 4.61 RATIO 2238) LIPID [id number] 00:00:00 Test Item Value Reference Range Interpretation Comments CHOLESTEROL (test code = 2210) 262 MG/DL TRIGLYCERIDES (test code = 2232) 300 MG/DL HDL CHOLESTEROL (test code = 2220) 36 MG/DL CALC LDL CHOL (test code = 2237) 166 MG/DL RISK RATIO LDL/HDL (test code = 4.61 RATIO 2238) HEMOGLOBIN [id number] 00:00:00 Test Item Value Reference Range Interpretation Comments HEMOGLOBIN A1c (test code = 77170) 6.2 % HEMOGLOBIN [id number] 00:00:00 Test Item Value Reference Range Interpretation Comments HEMOGLOBIN A1c (test code = 04203) 6.2 % HEMOGLOBIN [id number] 00:00:00 Test Item Value Reference Range Interpretation Comments HEMOGLOBIN A1c (test code = 04801) 6.2 % [id number] 00:00:00 Test Item Value Reference Range Interpretation Comments TSH, THIRD GENERATION (test code 0.988 UIU/ML = 2821) [id number] 00:00:00 Test Item Value Reference Range Interpretation Comments TSH, THIRD GENERATION (test code 0.988 UIU/ML = 2821) [id number] 00:00:00 Test Item Value Reference Range Interpretation Comments TSH, THIRD GENERATION (test code 0.988 UIU/ML = 2821) COMPREHENSIVE METABOLIC [id number] 00:00:00 Test Item Value Reference Range Interpretation Comments GLUCOSE (test code = 2217) 109 MG/DL BUN (test code = 2208) 25 MG/DL CREATININE (test code = 2214) 0.78 MG/DL eGFR AMER. (test code 98 ML/MIN/1.73 = 31488) eGFR NON- AMER. (test 84 ML/MIN/1.73 code = 52026) CALC BUN/CREAT (test code = 32 RATIO [...] code = 2219) 25 U/L COMPREHENSIVE METABOLIC [id number] 00:00:00 Test Item Value Reference Range Interpretation Comments GLUCOSE (test code = 2217) 109 MG/DL BUN (test code = 2208) 25 MG/DL CREATININE (test code = 2214) 0.78 MG/DL eGFR AMER. (test code 98 ML/MIN/1.73 = 90809) eGFR NON- AMER. (test 84 ML/MIN/1.73 code = 22012) CALC BUN/CREAT (test code = 32 RATIO [...] (test code = 2219) 25 U/L LIPID [id number] 00:00:00 Test Item Value Reference Range Interpretation Comments CHOLESTEROL (test code = 2210) 295 MG/DL TRIGLYCERIDES (test code = 2232) 218 MG/DL HDL CHOLESTEROL (test code = 2220) 46 MG/DL CALC LDL CHOL (test code = 2237) 205 MG/DL RISK RATIO LDL/HDL (test code = 4.47 RATIO 2238) LIPID [id number] 00:00:00 Test Item Value Reference Range Interpretation Comments CHOLESTEROL (test code = 2210) 295 MG/DL TRIGLYCERIDES (test code = 2232) 218 MG/DL HDL CHOLESTEROL (test code = 2220) 46 MG/DL CALC LDL CHOL (test code = 2237) 205 MG/DL RISK RATIO LDL/HDL (test code = 4.47 RATIO 2238) HEMOGLOBIN [id number] 00:00:00 Test Item Value Reference Range Interpretation Comments HEMOGLOBIN A1c (test code = 37966) 7.0 % HEMOGLOBIN [id number] 00:00:00 Test Item Value Reference Range Interpretation Comments HEMOGLOBIN A1c (test code = 70640) 7.0 % HEMOGLOBIN [id number] 00:00:00 Test Item Value Reference Range Interpretation Comments HEMOGLOBIN A1c (test code = 68513) 7.0 % [id number] 00:00:00 Test Item Value Reference Range Interpretation Comments TSH, THIRD GENERATION (test code 0.565 UIU/ML = 2821) [id number] 00:00:00 Test Item Value Reference Range Interpretation Comments TSH, THIRD GENERATION (test code 0.565 UIU/ML = 2821) [id number] 00:00:00 Test Item Value Reference Range Interpretation Comments TSH, THIRD GENERATION (test code 0.565 UIU/ML = 2821) COMPREHENSIVE METABOLIC [id number] 00:00:00 Test Item Value Reference Range Interpretation Comments GLUCOSE (test code = 2217) 109 MG/DL BUN (test code = 2208) 25 MG/DL CREATININE (test code = 2214) 0.78 MG/DL eGFR AMER. (test code 98 ML/MIN/1.73 = 48564) eGFR NON- AMER. (test 84 ML/MIN/1.73 code = 54055) CALC BUN/CREAT (test code = 32 RATIO [...] code = 2219) 25 U/L COMPREHENSIVE METABOLIC [id number] 00:00:00 Test Item Value Reference Range Interpretation Comments GLUCOSE (test code = 2217) 109 MG/DL BUN (test code = 2208) 25 MG/DL CREATININE (test code = 2214) 0.78 MG/DL eGFR AMER. (test code 98 ML/MIN/1.73 = 95183) eGFR NON- AMER. (test 84 ML/MIN/1.73 code = 82675) CALC BUN/CREAT (test code = 32 RATIO [...] (test code = 2219) 25 U/L LIPID [id number] 00:00:00 Test Item Value Reference Range Interpretation Comments CHOLESTEROL (test code = 2210) 295 MG/DL TRIGLYCERIDES (test code = 2232) 218 MG/DL HDL CHOLESTEROL (test code = 2220) 46 MG/DL CALC LDL CHOL (test code = 2237) 205 MG/DL RISK RATIO LDL/HDL (test code = 4.47 RATIO 2238) LIPID [id number] 00:00:00 Test Item Value Reference Range Interpretation Comments CHOLESTEROL (test code = 2210) 295 MG/DL TRIGLYCERIDES (test code = 2232) 218 MG/DL HDL CHOLESTEROL (test code = 2220) 46 MG/DL CALC LDL CHOL (test code = 2237) 205 MG/DL RISK RATIO LDL/HDL (test code = 4.47 RATIO 2238) HEMOGLOBIN [id number] 00:00:00 Test Item Value Reference Range Interpretation Comments HEMOGLOBIN A1c (test code = 98623) 7.0 % HEMOGLOBIN [id number] 00:00:00 Test Item Value Reference Range Interpretation Comments HEMOGLOBIN A1c (test code = 92395) 7.0 % HEMOGLOBIN [id number] 00:00:00 Test Item Value Reference Range Interpretation Comments HEMOGLOBIN A1c (test code = 81711) 7.0 % [id number] 00:00:00 Test Item Value Reference Range Interpretation Comments TSH, THIRD GENERATION (test code 0.565 UIU/ML = 2821) [id number] 00:00:00 Test Item Value Reference Range Interpretation Comments TSH, THIRD GENERATION (test code 0.565 UIU/ML = 2821) [id number] 00:00:00 Test Item Value Reference Range Interpretation Comments TSH, THIRD GENERATION (test code 0.565 UIU/ML = 2821) COMPREHENSIVE METABOLIC [id number] 00:00:00 Test Item Value Reference Range Interpretation Comments GLUCOSE (test code = 2217) 109 MG/DL BUN (test code = 2208) 25 MG/DL CREATININE (test code = 2214) 0.78 MG/DL eGFR AMER. (test code 98 ML/MIN/1.73 = 60998) eGFR NON- AMER. (test 84 ML/MIN/1.73 code = 96788) CALC BUN/CREAT (test code = 32 RATIO [...] (test code = 2219) 25 U/L LIPID [id number] 00:00:00 Test Item Value Reference Range Interpretation Comments CHOLESTEROL (test code = 2210) 295 MG/DL TRIGLYCERIDES (test code = 2232) 218 MG/DL HDL CHOLESTEROL (test code = 2220) 46 MG/DL CALC LDL CHOL (test code = 2237) 205 MG/DL RISK RATIO LDL/HDL (test code = 4.47 RATIO 2238) HEMOGLOBIN [id number] 00:00:00 Test Item Value Reference Range Interpretation Comments HEMOGLOBIN A1c (test code = 32099) 7.0 % HEMOGLOBIN [id number] 00:00:00 Test Item Value Reference Range Interpretation Comments HEMOGLOBIN A1c (test code = 53739) 7.0 % [id number] 00:00:00 Test Item Value Reference Range Interpretation Comments TSH, THIRD GENERATION (test code 0.565 UIU/ML = 2821) [id number] 00:00:00 Test Item Value Reference Range Interpretation Comments TSH, THIRD GENERATION (test code 0.565 UIU/ML = 2821) COMPREHENSIVE METABOLIC [id number] 00:00:00 Test Item Value Reference Range Interpretation Comments GLUCOSE (test code = 2217) 109 MG/DL BUN (test code = 2208) 25 MG/DL CREATININE (test code = 2214) 0.78 MG/DL eGFR AMER. (test code 98 ML/MIN/1.73 = 77933) eGFR NON- AMER. (test 84 ML/MIN/1.73 code = 49716) CALC BUN/CREAT (test code = 32 RATIO [...] code = 2219) 25 U/L COMPREHENSIVE METABOLIC [id number] 00:00:00 Test Item Value Reference Range Interpretation Comments GLUCOSE (test code = 2217) 109 MG/DL BUN (test code = 2208) 25 MG/DL CREATININE (test code = 2214) 0.78 MG/DL eGFR AMER. (test code 98 ML/MIN/1.73 = 28087) eGFR NON- AMER. (test 84 ML/MIN/1.73 code = 95506) CALC BUN/CREAT (test code = 32 RATIO [...] (test code = 2219) 25 U/L LIPID [id number] 00:00:00 Test Item Value Reference Range Interpretation Comments CHOLESTEROL (test code = 2210) 295 MG/DL TRIGLYCERIDES (test code = 2232) 218 MG/DL HDL CHOLESTEROL (test code = 2220) 46 MG/DL CALC LDL CHOL (test code = 2237) 205 MG/DL RISK RATIO LDL/HDL (test code = 4.47 RATIO 2238) LIPID [id number] 00:00:00 Test Item Value Reference Range Interpretation Comments CHOLESTEROL (test code = 2210) 295 MG/DL TRIGLYCERIDES (test code = 2232) 218 MG/DL HDL CHOLESTEROL (test code = 2220) 46 MG/DL CALC LDL CHOL (test code = 2237) 205 MG/DL RISK RATIO LDL/HDL (test code = 4.47 RATIO 2238) HEMOGLOBIN [id number] 00:00:00 Test Item Value Reference Range Interpretation Comments HEMOGLOBIN A1c (test code = 25922) 7.0 % HEMOGLOBIN [id number] 00:00:00 Test Item Value Reference Range Interpretation Comments HEMOGLOBIN A1c (test code = 67297) 7.0 % HEMOGLOBIN [id number] 00:00:00 Test Item Value Reference Range Interpretation Comments HEMOGLOBIN A1c (test code = 29643) 7.0 % [id number] 00:00:00 Test Item Value Reference Range Interpretation Comments TSH, THIRD GENERATION (test code 0.565 UIU/ML = 2821) [id number] 00:00:00 Test Item Value Reference Range Interpretation Comments TSH, THIRD GENERATION (test code 0.565 UIU/ML = 2821) [id number] 00:00:00 Test Item Value Reference Range Interpretation Comments TSH, THIRD GENERATION (test code 0.565 UIU/ML = 2821) [id number] 00:00:00 Test Item Value Reference Range Interpretation Comments TSH, THIRD GENERATION (test code 0.379 UIU/ML = 2821) [id number] 00:00:00 Test Item Value Reference Range Interpretation Comments TSH, THIRD GENERATION (test code 0.379 UIU/ML = 2821) [id number] 00:00:00 Test Item Value Reference Range Interpretation Comments TSH, THIRD GENERATION (test code 0.379 UIU/ML = 2821) [id number] 00:00:00 Test Item Value Reference Range Interpretation Comments TSH, THIRD GENERATION (test code 0.379 UIU/ML = 2821) [id number] 00:00:00 Test Item Value Reference Range Interpretation Comments TSH, THIRD GENERATION (test code 0.379 UIU/ML = 2821) [id number] 00:00:00 Test Item Value Reference Range Interpretation Comments TSH, THIRD GENERATION (test code 0.379 UIU/ML = 2821) [id number] 00:00:00 Test Item Value Reference Range Interpretation Comments TSH, THIRD GENERATION (test code 0.379 UIU/ML = 2821) [id number] 00:00:00 Test Item Value Reference Range Interpretation Comments TSH, THIRD GENERATION (test code 0.379 UIU/ML = 2821) [id number] 00:00:00 Test Item Value Reference Range Interpretation Comments TSH, THIRD GENERATION (test code 0.379 UIU/ML = 2821) [id number] 00:00:00 Test Item Value Reference Range Interpretation Comments TSH, THIRD GENERATION (test code 0.379 UIU/ML = 2821) [id number] 00:00:00 Test Item Value Reference Range Interpretation Comments TSH, THIRD GENERATION (test code 0.379 UIU/ML = 2821) CULTURE, [id number] 00:00:00 Test Item Value Reference Range Interpretation Comments CULTURE, URINE (test SPECIMEN NUMBER: code = 24093) [id number] CULTURE, [id number] 00:00:00 Test Item Value Reference Range Interpretation Comments CULTURE, URINE (test SPECIMEN NUMBER: code = 82557) [id number] CULTURE, [id number] 00:00:00 Test Item Value Reference Range Interpretation Comments CULTURE, URINE (test SPECIMEN NUMBER: code = 38998) [id number] CULTURE, [id number] 00:00:00 Test Item Value Reference Range Interpretation Comments CULTURE, URINE (test SPECIMEN NUMBER: code = 98218) [id number] CULTURE, [id number] 00:00:00 Test Item Value Reference Range Interpretation Comments CULTURE, URINE (test SPECIMEN NUMBER: code = 93379) [id number] CULTURE, [id number] 00:00:00 Test Item Value Reference Range Interpretation Comments CULTURE, URINE (test SPECIMEN NUMBER: code = 25269) [id number] CULTURE, [id number] 00:00:00 Test Item Value Reference Range Interpretation Comments CULTURE, URINE (test SPECIMEN NUMBER: code = 81587) [id number] COMPREHENSIVE METABOLIC [id number] 00:00:00 Test Item Value Reference Range Interpretation Comments GLUCOSE (test code = 2217) 128 MG/DL BUN (test code = 2208) 26 MG/DL CREATININE (test code = 2214) 0.92 MG/DL eGFR AMER. (test code 81 ML/MIN/1.73 = 36945) eGFR NON- AMER. (test 70 ML/MIN/1.73 code = 98738) CALC BUN/CREAT (test code = 28 RATIO [...] code = 2219) 29 U/L COMPREHENSIVE METABOLIC [id number] 00:00:00 Test Item Value Reference Range Interpretation Comments GLUCOSE (test code = 2217) 128 MG/DL BUN (test code = 2208) 26 MG/DL CREATININE (test code = 2214) 0.92 MG/DL eGFR AMER. (test code 81 ML/MIN/1.73 = 39059) eGFR NON- AMER. (test 70 ML/MIN/1.73 code = 36002) CALC BUN/CREAT (test code = 28 RATIO [...] code = 2219) 29 U/L ACUTE HEPATITIS [id number] 00:00:00 Test Item Value Reference Range Interpretation Comments HEPATITIS A IgM (test code = NON-REACTIVE 54955) HEPATITIS B CORE IgM (test code NON-REACTIVE = 4644) HEPATITIS B SURF AG (test code = NON-REACTIVE 2739) HEPATITIS C ANTIBODY (test code NON-REACTIVE = 4675) INTERPRETATION HEPATITIS A: (NOTE) (test code = 2552) INTERPRETATION HEPATITIS B: (NOTE) (test code = 68153) INTERPRETATION HEPATITIS C: (NOTE) (test code = 43604) ACUTE HEPATITIS [id number] 00:00:00 Test Item Value Reference Range Interpretation Comments HEPATITIS A IgM (test code = NON-REACTIVE 13055) HEPATITIS B CORE IgM (test code NON-REACTIVE = 4644) HEPATITIS B SURF AG (test code = NON-REACTIVE 2739) HEPATITIS C ANTIBODY (test code NON-REACTIVE = 4675) INTERPRETATION HEPATITIS A: (NOTE) (test code = 2552) INTERPRETATION HEPATITIS B: (NOTE) (test code = 82227) INTERPRETATION HEPATITIS C: (NOTE) (test code = 82691) [id number] 00:00:00 Test Item Value Reference Range Interpretation Comments AMYLASE (test code = 2205) 32 U/L [id number] 00:00:00 Test Item Value Reference Range Interpretation Comments AMYLASE (test code = 2205) 32 U/L [id number] 00:00:00 Test Item Value Reference Range Interpretation Comments LIPASE (test code = 2058) 22 U/L [id number] 00:00:00 Test Item Value Reference Range Interpretation Comments LIPASE (test code = 205) 22 U/L [id number] 00:00:00 Test Item Value Reference Range Interpretation Comments LIPASE (test code = 205) 22 U/L COMPREHENSIVE METABOLIC [id number] 00:00:00 Test Item Value Reference Range Interpretation Comments GLUCOSE (test code = 2217) 128 MG/DL BUN (test code = 2208) 26 MG/DL CREATININE (test code = 2214) 0.92 MG/DL eGFR AMER. (test code 81 ML/MIN/1.73 = 71412) eGFR NON- AMER. (test 70 ML/MIN/1.73 code = 70215) CALC BUN/CREAT (test code = 28 RATIO [...] code = 2219) 29 U/L COMPREHENSIVE METABOLIC [id number] 00:00:00 Test Item Value Reference Range Interpretation Comments GLUCOSE (test code = 2217) 128 MG/DL BUN (test code = 2208) 26 MG/DL CREATININE (test code = 2214) 0.92 MG/DL eGFR AMER. (test code 81 ML/MIN/1.73 = 84369) eGFR NON- AMER. (test 70 ML/MIN/1.73 code = 81497) CALC BUN/CREAT (test code = 28 RATIO [...] code = 2219) 29 U/L ACUTE HEPATITIS [id number] 00:00:00 Test Item Value Reference Range Interpretation Comments HEPATITIS A IgM (test code = NON-REACTIVE 74732) HEPATITIS B CORE IgM (test code NON-REACTIVE = 4644) HEPATITIS B SURF AG (test code = NON-REACTIVE 2739) HEPATITIS C ANTIBODY (test code NON-REACTIVE = 4675) INTERPRETATION HEPATITIS A: (NOTE) (test code = 2552) INTERPRETATION HEPATITIS B: (NOTE) (test code = 48826) INTERPRETATION HEPATITIS C: (NOTE) (test code = 53451) ACUTE HEPATITIS [id number] 00:00:00 Test Item Value Reference Range Interpretation Comments HEPATITIS A IgM (test code = NON-REACTIVE 35148) HEPATITIS B CORE IgM (test code NON-REACTIVE = 4644) HEPATITIS B SURF AG (test code = NON-REACTIVE 2739) HEPATITIS C ANTIBODY (test code NON-REACTIVE = 4675) INTERPRETATION HEPATITIS A: (NOTE) (test code = 2552) INTERPRETATION HEPATITIS B: (NOTE) (test code = 30998) INTERPRETATION HEPATITIS C: (NOTE) (test code = 17343) [id number] 00:00:00 Test Item Value Reference Range Interpretation Comments AMYLASE (test code = 2205) 32 U/L [id number] 00:00:00 Test Item Value Reference Range Interpretation Comments AMYLASE (test code = 2205) 32 U/L [id number] 00:00:00 Test Item Value Reference Range Interpretation Comments LIPASE (test code = 2058) 22 U/L [id number] 00:00:00 Test Item Value Reference Range Interpretation Comments LIPASE (test code = 2058) 22 U/L [id number] 00:00:00 Test Item Value Reference Range Interpretation Comments LIPASE (test code = 2058) 22 U/L COMPREHENSIVE METABOLIC [id number] 00:00:00 Test Item Value Reference Range Interpretation Comments GLUCOSE (test code = 2217) 128 MG/DL BUN (test code = 2208) 26 MG/DL CREATININE (test code = 2214) 0.92 MG/DL eGFR AMER. (test code 81 ML/MIN/1.73 = 50354) eGFR NON- AMER. (test 70 ML/MIN/1.73 code = 17638) CALC BUN/CREAT (test code = 28 RATIO [...] code = 2219) 29 U/L ACUTE HEPATITIS [id number] 00:00:00 Test Item Value Reference Range Interpretation Comments HEPATITIS A IgM (test code = NON-REACTIVE 35154) HEPATITIS B CORE IgM (test code NON-REACTIVE = 8681) HEPATITIS B SURF AG (test code = NON-REACTIVE 9806) HEPATITIS C ANTIBODY (test code NON-REACTIVE = 4675) INTERPRETATION HEPATITIS A: (NOTE) (test code = 2552) INTERPRETATION HEPATITIS B: (NOTE) (test code = 51412) INTERPRETATION HEPATITIS C: (NOTE) (test code = 09601) [id number] 00:00:00 Test Item Value Reference Range Interpretation Comments AMYLASE (test code = 2205) 32 U/L [id number] 00:00:00 Test Item Value Reference Range Interpretation Comments LIPASE (test code = 2058) 22 U/L [id number] 00:00:00 Test Item Value Reference Range Interpretation Comments LIPASE (test code = 2058) 22 U/L COMPREHENSIVE METABOLIC [id number] 00:00:00 Test Item Value Reference Range Interpretation Comments GLUCOSE (test code = 2217) 128 MG/DL BUN (test code = 2208) 26 MG/DL CREATININE (test code = 2214) 0.92 MG/DL eGFR AMER. (test code 81 ML/MIN/1.73 = 09660) eGFR NON- AMER. (test 70 ML/MIN/1.73 code = 40711) CALC BUN/CREAT (test code = 28 RATIO [...] code = 2219) 29 U/L COMPREHENSIVE METABOLIC [id number] 00:00:00 Test Item Value Reference Range Interpretation Comments GLUCOSE (test code = 2217) 128 MG/DL BUN (test code = 2208) 26 MG/DL CREATININE (test code = 2214) 0.92 MG/DL eGFR AMER. (test code 81 ML/MIN/1.73 = 52418) eGFR NON- AMER. (test 70 ML/MIN/1.73 code = 74773) CALC BUN/CREAT (test code = 28 RATIO [...] code = 2219) 29 U/L ACUTE HEPATITIS [id number] 00:00:00 Test Item Value Reference Range Interpretation Comments HEPATITIS A IgM (test code = NON-REACTIVE 69227) HEPATITIS B CORE IgM (test code NON-REACTIVE = 4644) HEPATITIS B SURF AG (test code = NON-REACTIVE 2739) HEPATITIS C ANTIBODY (test code NON-REACTIVE = 4675) INTERPRETATION HEPATITIS A: (NOTE) (test code = 2552) INTERPRETATION HEPATITIS B: (NOTE) (test code = 29639) INTERPRETATION HEPATITIS C: (NOTE) (test code = 02582) ACUTE HEPATITIS [id number] 00:00:00 Test Item Value Reference Range Interpretation Comments HEPATITIS A IgM (test code = NON-REACTIVE 56186) HEPATITIS B CORE IgM (test code NON-REACTIVE = 4644) HEPATITIS B SURF AG (test code = NON-REACTIVE 2739) HEPATITIS C ANTIBODY (test code NON-REACTIVE = 4675) INTERPRETATION HEPATITIS A: (NOTE) (test code = 2552) INTERPRETATION HEPATITIS B: (NOTE) (test code = 86099) INTERPRETATION HEPATITIS C: (NOTE) (test code = 46660) [id number] 00:00:00 Test Item Value Reference Range Interpretation Comments AMYLASE (test code = 2205) 32 U/L [id number] 00:00:00 Test Item Value Reference Range Interpretation Comments AMYLASE (test code = 2205) 32 U/L [id number] 00:00:00 Test Item Value Reference Range Interpretation Comments LIPASE (test code = 2058) 22 U/L [id number] 00:00:00 Test Item Value Reference Range Interpretation Comments LIPASE (test code = 2058) 22 U/L [id number] 00:00:00 Test Item Value Reference Range Interpretation Comments LIPASE (test code = 2058) 22 U/L [id number] 00:00:00 Test Item Value Reference Range Interpretation Comments TSH, THIRD GENERATION (test code 4.890 UIU/ML = 2821) [id number] 00:00:00 Test Item Value Reference Range Interpretation Comments TSH, THIRD GENERATION (test code 4.890 UIU/ML = 2821) [id number] 00:00:00 Test Item Value Reference Range Interpretation Comments TSH, THIRD GENERATION (test code 4.890 UIU/ML = 2821) COMPREHENSIVE METABOLIC [id number] 00:00:00 Test Item Value Reference Range Interpretation Comments GLUCOSE (test code = 2217) 121 MG/DL BUN (test code = 2208) 40 MG/DL CREATININE (test code = 2214) 1.48 MG/DL eGFR AMER. (test code 45 ML/MIN/1.73 = 36835) eGFR NON- AMER. (test 39 ML/MIN/1.73 code = 91729) CALC BUN/CREAT (test code = 27 RATIO 5) SODIUM (test code = 2231) 143 MEQ/L [...] code = 2219) 20 U/L COMPREHENSIVE METABOLIC [id number] 00:00:00 Test Item Value Reference Range Interpretation Comments GLUCOSE (test code = 2217) 121 MG/DL BUN (test code = 2208) 40 MG/DL CREATININE (test code = 2214) 1.48 MG/DL eGFR AMER. (test code 45 ML/MIN/1.73 = 07774) eGFR NON- AMER. (test 39 ML/MIN/1.73 code = 58493) CALC BUN/CREAT (test code = 27 RATIO [...] ALT (test code = 2219) 20 U/L [id number] 00:00:00 Test Item Value Reference Range Interpretation Comments TSH, THIRD GENERATION (test code 4.890 UIU/ML = 2821) [id number] 00:00:00 Test Item Value Reference Range Interpretation Comments TSH, THIRD GENERATION (test code 4.890 UIU/ML = 2821) [id number] 00:00:00 Test Item Value Reference Range Interpretation Comments TSH, THIRD GENERATION (test code 4.890 UIU/ML = 2821) COMPREHENSIVE METABOLIC [id number] 00:00:00 Test Item Value Reference Range Interpretation Comments GLUCOSE (test code = 2217) 121 MG/DL BUN (test code = 2208) 40 MG/DL CREATININE (test code = 2214) 1.48 MG/DL eGFR AMER. (test code 45 ML/MIN/1.73 = 04050) eGFR NON- AMER. (test 39 ML/MIN/1.73 code = 13356) CALC BUN/CREAT (test code = 27 RATIO [...] code = 2219) 20 U/L COMPREHENSIVE METABOLIC [id number] 00:00:00 Test Item Value Reference Range Interpretation Comments GLUCOSE (test code = 2217) 121 MG/DL BUN (test code = 2208) 40 MG/DL CREATININE (test code = 2214) 1.48 MG/DL eGFR AMER. (test code 45 ML/MIN/1.73 = 01599) eGFR NON- AMER. (test 39 ML/MIN/1.73 code = 56481) CALC BUN/CREAT (test code = 27 RATIO [...] ALT (test code = 2219) 20 U/L [id number] 00:00:00 Test Item Value Reference Range Interpretation Comments TSH, THIRD GENERATION (test code 4.890 UIU/ML = 2821) [id number] 00:00:00 Test Item Value Reference Range Interpretation Comments TSH, THIRD GENERATION (test code 4.890 UIU/ML = 2821) COMPREHENSIVE METABOLIC [id number] 00:00:00 Test Item Value Reference Range Interpretation Comments GLUCOSE (test code = 2217) 121 MG/DL BUN (test code = 2208) 40 MG/DL CREATININE (test code = 2214) 1.48 MG/DL eGFR AMER. (test code 45 ML/MIN/1.73 = 85313) eGFR NON- AMER. (test 39 ML/MIN/1.73 code = 66112) CALC BUN/CREAT (test code = 27 RATIO [...] ALT (test code = 2219) 20 U/L [id number] 00:00:00 Test Item Value Reference Range Interpretation Comments TSH, THIRD GENERATION (test code 4.890 UIU/ML = 2821) [id number] 00:00:00 Test Item Value Reference Range Interpretation Comments TSH, THIRD GENERATION (test code 4.890 UIU/ML = 2821) [id number] 00:00:00 Test Item Value Reference Range Interpretation Comments TSH, THIRD GENERATION (test code 4.890 UIU/ML = 2821) COMPREHENSIVE METABOLIC [id number] 00:00:00 Test Item Value Reference Range Interpretation Comments GLUCOSE (test code = 2217) 121 MG/DL BUN (test code = 2208) 40 MG/DL CREATININE (test code = 2214) 1.48 MG/DL eGFR AMER. (test code 45 ML/MIN/1.73 = 68628) eGFR NON- AMER. (test 39 ML/MIN/1.73 code = 13801) CALC BUN/CREAT (test code = 27 RATIO [...] code = 2219) 20 U/L COMPREHENSIVE METABOLIC [id number] 00:00:00 Test Item Value Reference Range Interpretation Comments GLUCOSE (test code = 2217) 121 MG/DL BUN (test code = 2208) 40 MG/DL CREATININE (test code = 2214) 1.48 MG/DL eGFR AMER. (test code 45 ML/MIN/1.73 = 06947) eGFR NON- AMER. (test 39 ML/MIN/1.73 code = 84416) CALC BUN/CREAT (test code = 27 RATIO [...] (test code = 2219) 20 U/L LIPID [id number] 00:00:00 Test Item Value Reference Range Interpretation Comments CHOLESTEROL (test code = 2210) 261 MG/DL TRIGLYCERIDES (test code = 2232) 165 MG/DL HDL CHOLESTEROL (test code = 2220) 58 MG/DL CALC LDL CHOL (test code = 2237) 170 MG/DL RISK RATIO LDL/HDL (test code = 2.93 RATIO 2238) LIPID [id number] 00:00:00 Test Item Value Reference Range Interpretation Comments CHOLESTEROL (test code = 2210) 261 MG/DL TRIGLYCERIDES (test code = 2232) 165 MG/DL HDL CHOLESTEROL (test code = 2220) 58 MG/DL CALC LDL CHOL (test code = 2237) 170 MG/DL RISK RATIO LDL/HDL (test code = 2.93 RATIO 2238) CBC W/AUTO [id number] 00:00:00 Test Item Value Reference Range Interpretation [...] code = 1015) 378 K/UL CBC W/AUTO [id number] 00:00:00 Test Item Value Reference Range Interpretation [...] code = 1015) 378 K/UL CBC W/AUTO [id number] 00:00:00 Test Item Value Reference Range Interpretation [...] (test code = 1015) 378 K/UL HEMOGLOBIN [id number] 00:00:00 Test Item Value Reference Range Interpretation Comments HEMOGLOBIN A1c (test code = 21398) 6.4 % HEMOGLOBIN [id number] 00:00:00 Test Item Value Reference Range Interpretation Comments HEMOGLOBIN A1c (test code = 53393) 6.4 % HEMOGLOBIN [id number] 00:00:00 Test Item Value Reference Range Interpretation Comments HEMOGLOBIN A1c (test code = 48945) 6.4 % [id number] 00:00:00 Test Item Value Reference Range Interpretation Comments TSH (test code = 2821) 5.290 UIU/ML [id number] 00:00:00 Test Item Value Reference Range Interpretation Comments TSH (test code = 2821) 5.290 UIU/ML [id number] 00:00:00 Test Item Value Reference Range Interpretation Comments TSH (test code = 2821) 5.290 UIU/ML LIPID [id number] 00:00:00 Test Item Value Reference Range Interpretation Comments CHOLESTEROL (test code = 2210) 261 MG/DL TRIGLYCERIDES (test code = 2232) 165 MG/DL HDL CHOLESTEROL (test code = 2220) 58 MG/DL CALC LDL CHOL (test code = 2237) 170 MG/DL RISK RATIO LDL/HDL (test code = 2.93 RATIO 2238) LIPID [id number] 00:00:00 Test Item Value Reference Range Interpretation Comments CHOLESTEROL (test code = 2210) 261 MG/DL TRIGLYCERIDES (test code = 2232) 165 MG/DL HDL CHOLESTEROL (test code = 2220) 58 MG/DL CALC LDL CHOL (test code = 2237) 170 MG/DL RISK RATIO LDL/HDL (test code = 2.93 RATIO 2238) CBC W/AUTO [id number] 00:00:00 Test Item Value Reference Range Interpretation [...] code = 1015) 378 K/UL CBC W/AUTO [id number] 00:00:00 Test Item Value Reference Range Interpretation [...] code = 1015) 378 K/UL CBC W/AUTO [id number] 00:00:00 Test Item Value Reference Range Interpretation [...] (test code = 1015) 378 K/UL HEMOGLOBIN [id number] 00:00:00 Test Item Value Reference Range Interpretation Comments HEMOGLOBIN A1c (test code = 89304) 6.4 % HEMOGLOBIN [id number] 00:00:00 Test Item Value Reference Range Interpretation Comments HEMOGLOBIN A1c (test code = 17855) 6.4 % HEMOGLOBIN [id number] 00:00:00 Test Item Value Reference Range Interpretation Comments HEMOGLOBIN A1c (test code = 73679) 6.4 % [id number] 00:00:00 Test Item Value Reference Range Interpretation Comments TSH (test code = 2821) 5.290 UIU/ML [id number] 00:00:00 Test Item Value Reference Range Interpretation Comments TSH (test code = 2821) 5.290 UIU/ML [id number] 00:00:00 Test Item Value Reference Range Interpretation Comments TSH (test code = 2821) 5.290 UIU/ML LIPID [id number] 00:00:00 Test Item Value Reference Range Interpretation Comments CHOLESTEROL (test code = 2210) 261 MG/DL TRIGLYCERIDES (test code = 2232) 165 MG/DL HDL CHOLESTEROL (test code = 2220) 58 MG/DL CALC LDL CHOL (test code = 2237) 170 MG/DL RISK RATIO LDL/HDL (test code = 2.93 RATIO 2238) CBC W/AUTO [id number] 00:00:00 Test Item Value Reference Range Interpretation [...] code = 1015) 378 K/UL CBC W/AUTO [id number] 00:00:00 Test Item Value Reference Range Interpretation [...] (test code = 1015) 378 K/UL HEMOGLOBIN [id number] 00:00:00 Test Item Value Reference Range Interpretation Comments HEMOGLOBIN A1c (test code = 67901) 6.4 % HEMOGLOBIN [id number] 00:00:00 Test Item Value Reference Range Interpretation Comments HEMOGLOBIN A1c (test code = 80320) 6.4 % [id number] 00:00:00 Test Item Value Reference Range Interpretation Comments TSH (test code = 2821) 5.290 UIU/ML [id number] 00:00:00 Test Item Value Reference Range Interpretation Comments TSH (test code = 2821) 5.290 UIU/ML LIPID [id number] 00:00:00 Test Item Value Reference Range Interpretation Comments CHOLESTEROL (test code = 2210) 261 MG/DL TRIGLYCERIDES (test code = 2232) 165 MG/DL HDL CHOLESTEROL (test code = 2220) 58 MG/DL CALC LDL CHOL (test code = 2237) 170 MG/DL RISK RATIO LDL/HDL (test code = 2.93 RATIO 2238) LIPID [id number] 00:00:00 Test Item Value Reference Range Interpretation Comments CHOLESTEROL (test code = 2210) 261 MG/DL TRIGLYCERIDES (test code = 2232) 165 MG/DL HDL CHOLESTEROL (test code = 2220) 58 MG/DL CALC LDL CHOL (test code = 2237) 170 MG/DL RISK RATIO LDL/HDL (test code = 2.93 RATIO 2238) CBC W/AUTO [id number] 00:00:00 Test Item Value Reference Range Interpretation [...] code = 1015) 378 K/UL CBC W/AUTO [id number] 00:00:00 Test Item Value Reference Range Interpretation [...] code = 1015) 378 K/UL CBC W/AUTO [id number] 00:00:00 Test Item Value Reference Range Interpretation [...] (test code = 1015) 378 K/UL HEMOGLOBIN [id number] 00:00:00 Test Item Value Reference Range Interpretation Comments HEMOGLOBIN A1c (test code = 01747) 6.4 % HEMOGLOBIN [id number] 00:00:00 Test Item Value Reference Range Interpretation Comments HEMOGLOBIN A1c (test code = 23913) 6.4 % HEMOGLOBIN [id number] 00:00:00 Test Item Value Reference Range Interpretation Comments HEMOGLOBIN A1c (test code = 59386) 6.4 % [id number] 00:00:00 Test Item Value Reference Range Interpretation Comments TSH (test code = 2821) 5.290 UIU/ML [id number] 00:00:00 Test Item Value Reference Range Interpretation Comments TSH (test code = 2821) 5.290 UIU/ML [id number] 00:00:00 Test Item Value Reference Range Interpretation [...] code = 2821) 1.030 UIU/ML COMPREHENSIVE METABOLIC [id number] 00:00:00 Test Item Value Reference Range Interpretation Comments GLUCOSE (test code = 2217) 106 MG/DL BUN (test code = 2208) 23 MG/DL CREATININE (test code = 2214) 0.66 MG/DL eGFR AMER. (test code 114 ML/MIN/1.73 = 23068) eGFR NON- AMER. (test 99 ML/MIN/1.73 code = 62217) CALC BUN/CREAT (test code = 35 RATIO [...] code = 2219) 31 U/L COMPREHENSIVE METABOLIC [id number] 00:00:00 Test Item Value Reference Range Interpretation Comments GLUCOSE (test code = 2217) 106 MG/DL BUN (test code = 2208) 23 MG/DL CREATININE (test code = 2214) 0.66 MG/DL eGFR AMER. (test code 114 ML/MIN/1.73 = 18915) eGFR NON- AMER. (test 99 ML/MIN/1.73 code = 31715) CALC BUN/CREAT (test code = 35 RATIO [...] code = 2821) 0.335 UIU/ML COMPREHENSIVE METABOLIC [id number] 00:00:00 Test Item Value Reference Range Interpretation Comments GLUCOSE (test code = 2217) 106 MG/DL BUN (test code = 2208) 23 MG/DL CREATININE (test code = 2214) 0.66 MG/DL eGFR AMER. (test code 114 ML/MIN/1.73 = 99121) eGFR NON- AMER. (test 99 ML/MIN/1.73 code = 94693) CALC BUN/CREAT (test code = 35 RATIO [...] code = 2219) 31 U/L COMPREHENSIVE METABOLIC [id number] 00:00:00 Test Item Value Reference Range Interpretation Comments GLUCOSE (test code = 2217) 106 MG/DL BUN (test code = 2208) 23 MG/DL CREATININE (test code = 2214) 0.66 MG/DL eGFR AMER. (test code 114 ML/MIN/1.73 = 82180) eGFR NON- AMER. (test 99 ML/MIN/1.73 code = 17202) CALC BUN/CREAT (test code = 35 RATIO [...] code = 2821) 0.335 UIU/ML COMPREHENSIVE METABOLIC [id number] 00:00:00 Test Item Value Reference Range Interpretation Comments GLUCOSE (test code = 2217) 106 MG/DL BUN (test code = 2208) 23 MG/DL CREATININE (test code = 2214) 0.66 MG/DL eGFR AMER. (test code 114 ML/MIN/1.73 = 98963) eGFR NON- AMER. (test 99 ML/MIN/1.73 code = 93249) CALC BUN/CREAT (test code = 35 RATIO [...] code = 2821) 0.335 UIU/ML COMPREHENSIVE METABOLIC [id number] 00:00:00 Test Item Value Reference Range Interpretation Comments GLUCOSE (test code = 2217) 106 MG/DL BUN (test code = 2208) 23 MG/DL CREATININE (test code = 2214) 0.66 MG/DL eGFR AMER. (test code 114 ML/MIN/1.73 = 71398) eGFR NON- AMER. (test 99 ML/MIN/1.73 code = 03248) CALC BUN/CREAT (test code = 35 RATIO [...] code = 2219) 31 U/L COMPREHENSIVE METABOLIC [id number] 00:00:00 Test Item Value Reference Range Interpretation Comments GLUCOSE (test code = 2217) 106 MG/DL BUN (test code = 2208) 23 MG/DL CREATININE (test code = 2214) 0.66 MG/DL eGFR AMER. (test code 114 ML/MIN/1.73 = 12763) eGFR NON- AMER. (test 99 ML/MIN/1.73 code = 88037) CALC BUN/CREAT (test code = 35 RATIO [...] code = 2821) 0.335 UIU/ML COMPREHENSIVE METABOLIC [id number] 00:00:00 Test Item Value Reference Range Interpretation Comments GLUCOSE (test code = 2217) 103 MG/DL BUN (test code = 2208) 15 MG/DL CREATININE (test code = 2214) 0.77 MG/DL eGFR AMER. (test code 101 ML/MIN/1.73 = 11558) eGFR NON- AMER. (test 87 ML/MIN/1.73 code = 39563) CALC BUN/CREAT (test code = 19 RATIO [...] code = 2219) 24 U/L COMPREHENSIVE METABOLIC [id number] 00:00:00 Test Item Value Reference Range Interpretation Comments GLUCOSE (test code = 2217) 103 MG/DL BUN (test code = 2208) 15 MG/DL CREATININE (test code = 2214) 0.77 MG/DL eGFR AMER. (test code 101 ML/MIN/1.73 = 63084) eGFR NON- AMER. (test 87 ML/MIN/1.73 code = 34069) CALC BUN/CREAT (test code = 19 RATIO [...] code = 2821) 0.424 UIU/ML COMPREHENSIVE METABOLIC [id number] 00:00:00 Test Item Value Reference Range Interpretation Comments GLUCOSE (test code = 2217) 103 MG/DL BUN (test code = 2208) 15 MG/DL CREATININE (test code = 2214) 0.77 MG/DL eGFR AMER. (test code 101 ML/MIN/1.73 = 05889) eGFR NON- AMER. (test 87 ML/MIN/1.73 code = 44156) CALC BUN/CREAT (test code = 19 RATIO [...] code = 2219) 24 U/L COMPREHENSIVE METABOLIC [id number] 00:00:00 Test Item Value Reference Range Interpretation Comments GLUCOSE (test code = 2217) 103 MG/DL BUN (test code = 2208) 15 MG/DL CREATININE (test code = 2214) 0.77 MG/DL eGFR AMER. (test code 101 ML/MIN/1.73 = 07441) eGFR NON- AMER. (test 87 ML/MIN/1.73 code = 17237) CALC BUN/CREAT (test code = 19 RATIO [...] code = 2821) 0.424 UIU/ML COMPREHENSIVE METABOLIC [id number] 00:00:00 Test Item Value Reference Range Interpretation Comments GLUCOSE (test code = 2217) 103 MG/DL BUN (test code = 2208) 15 MG/DL CREATININE (test code = 2214) 0.77 MG/DL eGFR AMER. (test code 101 ML/MIN/1.73 = 23630) eGFR NON- AMER. (test 87 ML/MIN/1.73 code = 37679) CALC BUN/CREAT (test code = 19 RATIO [...] code = 2821) 0.424 UIU/ML COMPREHENSIVE METABOLIC [id number] 00:00:00 Test Item Value Reference Range Interpretation Comments GLUCOSE (test code = 2217) 103 MG/DL BUN (test code = 2208) 15 MG/DL CREATININE (test code = 2214) 0.77 MG/DL eGFR AMER. (test code 101 ML/MIN/1.73 = 78166) eGFR NON- AMER. (test 87 ML/MIN/1.73 code = 87358) CALC BUN/CREAT (test code = 19 RATIO [...] code = 2219) 24 U/L COMPREHENSIVE METABOLIC [id number] 00:00:00 Test Item Value Reference Range Interpretation Comments GLUCOSE (test code = 2217) 103 MG/DL BUN (test code = 2208) 15 MG/DL CREATININE (test code = 2214) 0.77 MG/DL eGFR AMER. (test code 101 ML/MIN/1.73 = 55011) eGFR NON- AMER. (test 87 ML/MIN/1.73 code = 75761) CALC BUN/CREAT (test code = 19 RATIO [...] (test code = 2821) 0.424 UIU/ML CULTURE, [id number] 00:00:00 Test Item Value Reference Range Interpretation Comments CULTURE, URINE (test SPECIMEN NUMBER: code = 30483) [id number] CULTURE, [id number] 00:00:00 Test Item Value Reference Range Interpretation Comments CULTURE, URINE (test SPECIMEN NUMBER: code = 62944) [id number] CULTURE, [id number] 00:00:00 Test Item Value Reference Range Interpretation Comments CULTURE, URINE (test SPECIMEN NUMBER: code = 58037) [id number] CULTURE, [id number] 00:00:00 Test Item Value Reference Range Interpretation Comments CULTURE, URINE (test SPECIMEN NUMBER: code = 52353) [id number] CULTURE, [id number] 00:00:00 Test Item Value Reference Range Interpretation Comments CULTURE, URINE (test SPECIMEN NUMBER: code = 95891) [id number] CULTURE, [id number] 00:00:00 Test Item Value Reference Range Interpretation Comments CULTURE, URINE (test SPECIMEN NUMBER: code = 75405) [id number] CULTURE, [id number] 00:00:00 Test Item Value Reference Range Interpretation Comments CULTURE, URINE (test SPECIMEN NUMBER: code = 48052) [id number] CULTURE, [id number] 00:00:00 Test Item Value Reference Range Interpretation Comments CULTURE, URINE (test SPECIMEN NUMBER: code = 22802) [id number] CULTURE, [id number] 00:00:00 Test Item Value Reference Range Interpretation Comments CULTURE, URINE (test SPECIMEN NUMBER: code = 37082) [id number] CULTURE, [id number] 00:00:00 Test Item Value Reference Range Interpretation Comments CULTURE, URINE (test SPECIMEN NUMBER: code = 15076) [id number] CULTURE, [id number] 00:00:00 Test Item Value Reference Range Interpretation Comments CULTURE, URINE (test SPECIMEN NUMBER: code = 60572) [id number] CULTURE, [id number] 00:00:00 Test Item Value Reference Range Interpretation Comments CULTURE, URINE (test SPECIMEN NUMBER: code = 93808) [id number] CULTURE, [id number] 00:00:00 Test Item Value Reference Range Interpretation Comments CULTURE, URINE (test SPECIMEN NUMBER: code = 86825) [id number] CULTURE, [id number] 00:00:00 Test Item Value Reference Range Interpretation Comments CULTURE, URINE (test SPECIMEN NUMBER: code = 63691) [id number]
[2022-07-30 18:11] LABS: Absolute Lymphocytes (CBC) 2.6 K/uL (0.7-4.9); Hematocrit 37.1 % (36.0-45.0); Lymphocytes % 30.9 % (15.3-44.8); MCV 92.7 fL (80-100); MPV 6.6 fL (7.6-11.3)
[2022-07-30] MEDS ORDERED: ONDANSETRON 4 MG (ODT) TAB ONE (18:19)
[2022-07-30 18:56] LABS: Protime INR 0.92
[2022-07-30 19:53] LABS: ALT/SGPT 38 U/L (13-56); AST/SGOT 15 U/L (15-37); Albumin 4.1 g/dL (3.4-5.0); Alkaline Phosphatase 109 U/L (45-117); BUN Blood Urea Nitrogen 10 mg/dL (7-18); Bicarbonate 27 mEq/L (21-32); Bilirubin Total 0.2 mg/dL (0.2-1.0); Glomerular Filtration Rate 105 ml/min (=/>90); Glucose Level 149 mg/dL (74-106); Potassium 3.6 mEq/L (3.5-5.1); Protein, Total 8.4 g/dL (6.4-8.2); Sodium Level 129 mEq/L (136-145)
[2022-07-30 19:56] LABS: Bilirubin Direct < 0.1 mg/dL (0-0.2); Bilirubin Indirect, Calculated ND mg/dL (0.2-0.8)
[2022-07-30] MEDS ORDERED: NA CHLORIDE 0.9% 1,000 ML ONE (20:15)
[2022-07-30 21:46] LABS: Barbiturates NEGATIVE (NEGATIVE); Benzodiazepines NEGATIVE (NEGATIVE); Cocaine NEGATIVE (NEGATIVE); METHAMPHETAM NEGATIVE (NEGATIVE); Methadone NEGATIVE (NEGATIVE); Opiates NEGATIVE (NEGATIVE); Phencyclidine NEGATIVE (NEGATIVE); THC Cannibis NEGATIVE (NEGATIVE)
[2022-07-30 21:54] LABS: Specific Gravity 1.026 (1.005-1.030); Urine Bacteria 20-50 /HPF (<20); Urine Bilirubin NEGATIVE (Negative); Urine Blood Negative (Negative); Urine Clarity Clear (Clear); Urine Color Yellow (Yellow); Urine Glucose 1+ (Negative); Urine Mucus Slight /HPF (None Seen); Urine Protein 1+ (Negative); Urine Urobilinogen Normal (Normal); Urine pH 6.5 (5.0-7.0)
--- NOTE | 2022-07-30 21:57 | ER ---
Nurse's Notes [facility] Name: Jaimie Amanda Age: 61 yrs Sex: Female : 1960 Arrival Date: 07/30/2022 Time: 17:19 Bed 15 Private MD: Diagnosis: Nausea with vomiting, unspecified;Hyponatremia Presentation: 07/30 17:28 Chief complaint: Patient states: called EMS because she fell and now she has pain all iw over. Coronavirus screen: At this time, the client does not indicate any symptoms associated with coronavirus-19. Ebola Screen: Patient negative for fever greater than or equal to 101.5 degrees Fahrenheit, and additional compatible Ebola Virus Disease symptoms Patient denies exposure to infectious person. Patient denies travel to an Ebola-affected area in the 21 days before illness onset. No symptoms or risks identified at this time. Initial Sepsis Screen: Does the patient meet any 2 criteria? No. Patient's initial sepsis screen is negative. Does the patient have a suspected source of infection? No. Patient's initial sepsis screen is negative. Risk Assessment: Do you want to hurt yourself or someone else? Patient reports no desire to harm self or others. Onset of symptoms was July 30, 2022. 17:28 Method Of Arrival: EMS: [facility] iw 17:28 Acuity: ZHEN 3 iw Historical: - Allergies: 17:29 hydrochlorothiazide; iw - PMHx: 17:29 Anxiety; Chronic Abdominal Pain; Hypertensive disorder; Hypothyroidism; low NA; NIDDM; iw - PSHx: 17:29 Thyroidectomy; iw - Immunization history:: Client reports receiving the 2nd dose of the Covid vaccine. - Social history:: Smoking status: Patient reports the use of cigarette tobacco products, smokes one pack cigarettes per day. Screenin:44 [facility] ED Fall Risk Assessment (Adult) History of falling in the last 3 months, nj1 including since admission No falls in past 3 months (0 pts) Confusion or Disorientation Yes (5 pts) Intoxicated or Sedated No (0 pts) Impaired Gait No (0 pts) Mobility Assist Device Used No (0 pt) Altered Elimination No (0 pt) Score/Fall Risk Level 3 or more points = High Risk Oriented to surroundings, Maintained a safe environment, Hourly rounding (assess needs \T\ fall precautionary measures) done. Abuse screen: Denies threats or abuse. Denies injuries from another. 19:44 Nutritional screening: No deficits noted. Tuberculosis screening: No symptoms or risk nj1 factors identified. Assessment: 19:44 General: Appears in no apparent distress. uncomfortable, Behavior is calm, cooperative, nj1 appropriate for age. Pain: Complains of pain in abdomen Pain currently is 10 out of 10 on a pain scale. 19:44 Neuro: Level of Consciousness is awake, alert, obeys commands, Oriented to person, nj1 place, situation. Cardiovascular: Patient's skin is warm and dry. Respiratory: Airway is patent Respiratory effort is even, unlabored. GI: Reports lower abdominal pain, upper abdominal pain, nausea. 20:20 Reassessment: Patient appears in no apparent distress at this time. Patient and/or nj1 family updated on plan of care and expected duration. Pain level reassessed. Patient is alert, oriented x 3, equal unlabored respirations, skin warm/dry/pink. 22:00 Reassessment: Patient appears in no apparent distress at this time. Patient and/or nj1 family updated on plan of care and expected duration. Pain level reassessed. Patient is alert, oriented x 3, equal unlabored respirations, skin warm/dry/pink. Patient states feeling better. Patient states symptoms have improved. Vital Signs: 17:27 BP 149 / 88; Pulse 97; Resp 16; Temp 98; Pulse Ox 95% on R/A; Weight 68.04 kg; Pain iw 10/10; 19:44 BP 171 / 90; Pulse 88; Resp 18; Pulse Ox 98% on R/A; nj1 22:06 Pulse 90; Resp 18; Pulse Ox 100% ; nj1 23:16 BP 153 / 87; Pulse 92; Resp 18; Pulse Ox 98% on R/A; vg1 17:27 Pain Scale: Adult iw ED Course: 17:23 Patient arrived in ED. mr 17:24 Emma Hussein FNP-C is [facility]. kb 17:24 Jey White MD is Attending Physician. kb 17:29 Triage completed. iw 19:04 Berna Lomax, CATY is Primary Nurse. nj1 19:44 Patient has correct armband on for positive identification. Bed in low position. Call [facility] light in reach. Side rails up X 1. Adult w/ patient. 20:20 Inserted saline lock: 22 gauge in right forearm, using aseptic technique. ha1 22:06 Salicylate Sent. nj1 23:16 IV discontinued, intact, bleeding controlled, No redness/swelling at site. Pressure vg1 dressing applied. 23:17 No provider procedures requiring assistance completed. vg1 Administered Medications: 18:13 Drug: Ondansetron PO 4 mg Route: PO; vg1 19:15 Follow up: Response: No adverse reaction; Marked relief of symptoms vg1 20:20 Drug: NS 0.9% IV 1000 ml Route: IV; Rate: 1000 ml; Site: right forearm; ha1 21:30 Follow up: IV Status: Completed infusion; IV Intake: 1000ml vg1 Intake: 21:30 IV: 1000ml; Total: 1000ml. vg1 Outcome: 21:56 Discharge ordered by . kb 23:16 Discharged to home via wheelchair, with family. vg1 23:16 Condition: good 23:16 Discharge instructions given to patient, Instructed on discharge instructions, follow up and referral plans. Demonstrated understanding of instructions, follow-up care. 23:17 Patient left the ED. vg1 Signatures: Emma Hussein, PERFORMANCE CONSULTANT-C PERFORMANCE CONSULTANT-Ckb Radha Messina Therese Logan, RN Geneva Cheek RN RN 1 Christal Flores RN RN 1 Berna Lomax, CATY RN nj1 Corrections: (The following items were deleted from the chart) 21:11 21:11 Inserted saline lock: 22 gauge in right forearm, using aseptic technique. ha1 ha1 21:46 19:34 Pulse 93bpm; Pulse Ox 98% RA; nj1 nj1
--- NOTE | 2022-07-30 21:57 | EDPHYS ---
Physician Documentation [facility] Name: Jaimie Amanda Age: 61 yrs Sex: Female : 1960 Arrival Date: 07/30/2022 Time: 17:19 Bed 15 Private MD: ED Physician Jey White HPI: 07/30 23:56 This 61 yrs old Female presents to ER via EMS with complaints of Dizziness. kb 23:56 The patient presents to the emergency department with nausea, vomiting. Onset: The kb symptoms/episode began/occurred ongoing . Possible causes: chronic. The symptoms are aggravated by nothing. The symptoms are alleviated by nothing. Associated signs and symptoms: Pertinent positives: nausea, vomiting. Severity of symptoms: At their worst the symptoms were mild moderate in the emergency department the symptoms are unchanged. The patient has experienced similar episodes in the past. The patient has been recently seen at the [facility] Emergency Department, this morning, The patient has been recently been admitted at [facility], was discharged yesterday. Historical: - Allergies: 17:29 hydrochlorothiazide; iw - PMHx: 17:29 Anxiety; Chronic Abdominal Pain; Hypertensive disorder; Hypothyroidism; low NA; NIDDM; iw - PSHx: 17:29 Thyroidectomy; iw - Immunization history:: Client reports receiving the 2nd dose of the Covid vaccine. - Social history:: Smoking status: Patient reports the use of cigarette tobacco products, smokes one pack cigarettes per day. ROS: 23:54 Constitutional: Negative for fever, chills, and weight loss. kb 23:54 Abdomen/GI: Positive for nausea and vomiting. 23:54 Neuro: Positive for weakness. 23:54 All other systems are negative. Exam: 23:56 Constitutional: This is a well developed, well nourished patient who is awake, alert, kb and in no acute distress. Head/Face: Normocephalic, atraumatic. ENT: Moist Mucous membranes Cardiovascular: Regular rate and rhythm with a normal S1 and S2. No gallops, murmurs, or rubs. No pulse deficits. Respiratory: Respirations even and unlabored. No increased work of breathing. Talking in full sentences Abdomen/GI: Soft, non-tender. No distention Skin: Warm, dry with normal turgor. Normal color. MS/ Extremity: Pulses equal, no cyanosis. Neurovascular intact. Full, normal range of motion. 23:56 Neuro: Orientation: to person, place, time \T\ situation. Mentation: no acute changes, Motor: no acute changes. Vital Signs: 17:27 BP 149 / 88; Pulse 97; Resp 16; Temp 98; Pulse Ox 95% on R/A; Weight 68.04 kg; Pain iw 10/10; 19:44 BP 171 / 90; Pulse 88; Resp 18; Pulse Ox 98% on R/A; nj1 22:06 Pulse 90; Resp 18; Pulse Ox 100% ; nj1 23:16 BP 153 / 87; Pulse 92; Resp 18; Pulse Ox 98% on R/A; vg1 17:27 Pain Scale: Adult iw MDM: 17:24 Patient medically screened. kb 17:37 Test considered but Not performed: CT: CT head considered, but pt had CT and MRI brain kb yesterday. Pt has not had a change in mental status since those tests. 23:56 Data reviewed: vital signs, nurses notes. kb 23:58 Differential diagnosis: Nonspecific abd pain, gastritis, viral gastroenteritis. kb Consideration of Admission/Observation Escalation of care including admission/observation considered. admission considered, but pt is awake, alert and oriented. CT and MRI done yesterday. Sodium level is at baseline for patient compared to previous labs. . Historians other than the Patient: EMS: [place]. Counseling: I had a detailed discussion with the patient and/or guardian regarding: the historical points, exam findings, and any diagnostic results supporting the discharge/admit diagnosis, lab results, radiology results, the need for outpatient follow up, a family practitioner, to return to the emergency department if symptoms worsen or persist or if there are any questions or concerns that arise at home. 07/30 17:27 Order name: Acetaminophen; Complete Time: 19:57 kb 07/30 17:27 Order name: Basic Metabolic Panel; Complete Time: 19:57 kb 07/30 17: Order name: CBC with Diff; Complete Time: 18:13 kb 07/30 17: Order name: ETOH Level; Complete Time: 19:57 kb 07/30 17:27 Order name: Hepatic Function; Complete Time: 19:57 kb 07/30 17:27 Order name: PT-INR; Complete Time: 18:57 kb 07/30 17:27 Order name: Ptt, Activated; Complete Time: 18:57 kb 07/30 17:27 Order name: Salicylate kb 07/30 17:27 Order name: Urinalysis w/ reflexes; Complete Time: 21:55 kb 07/30 17:27 Order name: Urine Drug Screen; Complete Time: 21:47 kb 07/30 17:27 Order name: EKG; Complete Time: 17:28 kb 07/30 17:27 Order name: EKG - Nurse/Tech; Complete Time: 22:06 kb 07/30 17:27 Order name: IV Saline Lock; Complete Time: 21:35 kb 07/30 17:27 Order name: Labs collected and sent; Complete Time: 18:48 kb 07/30 18:13 Order name: Labs - recollect needed: recollect green and blue top; Complete Time: 18:48 bd Administered Medications: 18:13 Drug: Ondansetron PO 4 mg Route: PO; vg1 19:15 Follow up: Response: No adverse reaction; Marked relief of symptoms vg1 20:20 Drug: NS 0.9% IV 1000 ml Route: IV; Rate: 1000 ml; Site: right forearm; ha1 21:30 Follow up: IV Status: Completed infusion; IV Intake: 1000ml vg1 Disposition Summary: 07/30/22 21:56 Discharge Ordered Location: Home kb Condition: Stable kb Diagnosis - Nausea with vomiting, unspecified kb - Hyponatremia kb Followup: kb - With: Emergency Department - When: As needed - Reason: Worsening of condition Followup: kb - With: Private Physician - When: 2 - 3 days - Reason: Recheck today's complaints, Continuance of care, Re-evaluation by your physician Discharge Instructions: - Discharge Summary Sheet kb - Nausea and Vomiting, Adult, [id number] kb - Hyponatremia, [id number] kb Forms: - Medication Reconciliation Form kb - Thank You Letter kb - Antibiotic Education kb - Prescription Opioid Use kb Signatures: Dispatcher [employer] Emma Navarrete FNP-C MANAGER ONLINE-Tiffani Burch Irene, RN Geneva Cheek, RN RN vg1 Christal Flores, RN RN ha1 Berna Lomax, RN RN nj1 Corrections: (The following items were deleted from the chart) 17:51 17:28 Head Brain Wo Cont+CT.RAD.BRZ ordered. EDMS EDMS 18:49 17:27 Suicide Screening ([place]) ordered. kb iw
[2022-07-30 23:22] VITALS: TEMP 98
[2022-07-30 23:28] VITALS: BP 153/87; O2SAT 98
--- NOTE | 2022-07-31 05:32 | EKG ---
Test Date: 2022-07-30 Test Time: 21:58:46 [employer] Chief: VANDANA MEASUREMENT RESULTS: Intervals: Rate: 93 ID: [id number] QRSD: 90 QT: 374 QTc: 465 [place]: P: 49 ID: [id number] QRS: 73 T: 57 INTERPRETIVE STATEMENTS: Normal sinus rhythm Normal ECG Compared to ECG 07/30/2022 10:21:46 No significant changes Electronically Signed On 07-31-22 05:32:15 CDT by Daniel Cespedes
== END 2022-07-30 23:17 | disposition home or self-care (01) ==
LOC: ER 17:19
DX: E87.1 Hypo-osmolality and hyponatremia (principal); I10 Essential (primary) hypertension; F17.210 Nicotine dependence, cigarettes, uncomplicated; Z88.8 Allergy status to other drugs, medicaments and biological substances
CPT/HCPCS: 85025; 81001; 80048; 36415; 85610; 80076; 85730; 80307; Q0162; J7030; G0480 ×3; 93005

== ENCOUNTER 2022-08-05 08:53 | Emergency (ER) | payer OTHER ==
--- OUTSIDE RECORDS SUMMARY | 2022-08-05 09:06 | XMS REPORT | Continuity of Care Document ---
:1960 Author Organization [facility] t Address [address] [place] [address] [place] [id number] Care Team Providers Name Role Phone Maya CLARK, Jacinda Primary Care Physician [phone] MATT SIMPSON Attending Clinician Unavailable MATT SIMPSON Attending Clinician Unavailable Doctor Unassigned, Parmelee Attending Clinician Unavailable WALLY KRISHNAMURTHY Attending Clinician Unavailable Natacha Brewster Attending Clinician Payers Payer Name Policy Type Policy Number Effective Date Expiration Date Sarina castelan [facility] JESS[facility] [id number] 2017 00:00:00 PLUS Problems This patient has [...] ers OPHEN INGREDI - ity of 00:00: [place] [facility] Hmg-Coa Propensi Inactiv Reductas ty to e 2-28 e adverse 00:00: Inhibito reaction 00 rs to drug Nitrogly Propensi Active 2017-03 cerin ty to 1-08 adverse 00:00: reaction 00 to drug Social History Social Habit Start Date Stop Date Quantity Comments Source History of Smokes tobacco [facility] Alcohol intake 2016-05-01 2016-05-[address] [facility] [address] [facility] 00:00:00 00:00:00 non-drinker of Medical Ce nter alcohol (finding) Sex Assigned At [birth year] [facility] 00:00:00 00:00:00 [facility] Smoking Status Start Date Stop Date Source Smokes tobacco daily 2016-05-01 00:00:00 [facility] Medications Ordered Filled Start Stop [...] [facility]: nightly. [address] OXcarbazepi 2017-0 Yes 600mg Q.[id number] Take [address] [facility] [address] ne 2-23 [id number] [facility] (TRILEPTAL) 10:23: 3D mouth 3 Med ical 600 [facility] 59 (three) Center tablet times daily. PARoxetine 2017-0 Yes 40mg QD Take [address] (PAXIL) 40 2-23 by mouth [facility] 10:23: nightly. [address] OXcarbazepi 2017-0 Yes 600mg Q.[id number] Take [address] ne 2-23 [id number] [facility] (TRILEPTAL) 10:23: 3D mouth 3 Med ical 600 [facility] (three) Center tablet times daily. PARoxetine 2017-0 Yes 40mg QD Take [address] (PAXIL) 40 2-23 by [facility] 10:23: nightly. [address] 2017-0 Yes 600mg Q.[id number] Take [address] ne 2-23 [id number] [facility] (TRILEPTAL) 10:23: 3D mouth 3 Med ical 600 [facility] 59 (three) Center tablet times daily. PARoxetine 2017-0 Yes 40mg QD Take [address] (PAXIL) 40 2-23 [facility] 10:23: nightly. [address] OXcarbazepi 2017-0 Yes 600mg Q.[id number] Take [address] ne 2-23 [id number] [facility] (TRILEPTAL) 10:23: 3D mouth 3 Med ical 600 [facility] 59 (three) Center tablet times daily. PARoxetine 2017-0 Yes 40mg QD Take [address] (PAXIL) 40 2-23 [facility] 10:23: nightly. [address] OXcarbazepi 2017-0 Yes 600mg Q.[id number] Take [address] ne 2-23 [id number] [facility] (TRILEPTAL) 10:23: 3D mouth 3 Med ical 600 [facility] 59 (three) Center tablet times daily. PARoxetine 2017-0 Yes 40mg QD Take [address] (PAXIL) 40 2-23 [facility] 10:23: nightly. [address] OXcarbazepi 2017-0 Yes 600mg Q.[id number] Take [address] ne 2-23 [id number] [facility] (TRILEPTAL) 10:23: 3D mouth 3 Med ical 600 [facility] 59 (three) Center tablet times daily. PARoxetine 2017-0 Yes 40mg QD Take [address] (PAXIL) 40 2-23 [facility]:23: nightly. [address] OXcarbazepi 2017-0 Yes 600mg Q.[id number] Take [address] ne 2-23 [id number] [facility] (TRILEPTAL) 10:23: 3D mouth 3 Med ical 600 [facility] 59 (three) Center tablet times daily. PARoxetine 2017-0 Yes 40mg QD Take [address] (PAXIL) 40 2-23 by [facility] 10:23: nightly. [address] OXcarbazepi 2017-0 Yes 600mg Q.[id number] Take [address] ne 2-23 [id number] [facility] (TRILEPTAL) 10:23: 3D mouth 3 Med ical 600 [facility] 59 (three) Center tablet times daily. OXcarbazepi 2017-0 Yes 600mg Q.[id number] Take [address] ne 2-23 [id number] [facility] (TRILEPTAL) 10:23: 3D mouth 3 Med ical 600 [facility] 59 (three) Center tablet times daily. PARoxetine 2017-0 Yes 40mg QD Take [address] (PAXIL) 40 2-23 by [facility] 10:23: nightly. [address] OXcarbazepi 2017-0 Yes 600mg Q.[id number] Take [address] ne 2-23 [id number] [facility] (TRILEPTAL) 10:23: 3D mouth 3 Med ical 600 [facility] 59 (three) Center tablet times daily. PARoxetine 2017-0 Yes 40mg QD Take [address] (PAXIL) 40 2-23 by [facility]:23: nightly. [address] OXcarbazepi 2017-0 Yes 600mg Q.[id number] Take [address] ne 2-23 [id number] [facility] (TRILEPTAL) 10:23: 3D mouth 3 Med ical 600 [facility] 59 (three) Center tablet times daily. PARoxetine 2017-0 Yes 40mg QD Take [address] (PAXIL) 40 2-23 by [facility]:23: nightly. [address] PARoxetine 2017-0 Yes 40mg QD Take [address] (PAXIL) 40 2-23 by [facility] 10:23: nightly. [address] OXcarbazepi 2017-0 Yes 600mg Q.[id number] Take [address] ne 2-23 [id number] [facility] (TRILEPTAL) 10:23: 3D mouth 3 Med ical 600 [facility] 59 (three) Center tablet times daily. PARoxetine 2017-0 Yes 40mg QD Take [address] (PAXIL) 40 2-23 by [facility] 10:23: [address]ly. [address] 2017-0 Yes 600mg Q.[id number] Take [address] ne 2-23 [id number] [facility] (TRILEPTAL) 10:23: 3D mouth 3 Med ical 600 [facility] 59 (three) Center tablet times daily. PARoxetine 2017-0 Yes 40mg QD Take [address] (PAXIL) 40 2-23 [facility] 10:23: nightly. [address] 2017-0 Yes 600mg Q.[id number] Take [address] ne 2-23 [id number] [facility] (TRILEPTAL) 10:23: 3D mouth 3 Med ical 600 [facility] 59 (three) Center tablet times daily. PARoxetine 2017-0 Yes 40mg QD Take [address] (PAXIL) 40 2-23 by [facility] 10:23: nightly. [address] OXcarbazepi 2017-0 Yes 600mg Q.[id number] Take [address] ne 2-23 [id number] [facility] (TRILEPTAL) 10:23: 3D mouth 3 Med ical 600 [facility] 59 (three) Center tablet times daily. PARoxetine 2017-0 Yes 40mg QD Take [address] (PAXIL) 40 2-23 by [facility] 10:23: nightly. [address] OXcarbazepi 2017-0 Yes 600mg Q.[id number] Take [address] ne 2-23 [id number] [facility] (TRILEPTAL) 10:23: 3D mouth 3 Med ical 600 [facility] 59 (three) Center tablet times daily. PARoxetine 2017-0 Yes 40mg QD Take [address] (PAXIL) 40 2-23 by [facility] 10:23: nightly. [facility] [address] OXcarbazepi 2017-0 Yes 600mg Q.[id number] Take [address] ne 2-23 [id number] [facility] (TRILEPTAL) 10:23: 3D mouth 3 Med ical 600 [facility] 59 (three) Center tablet times daily. PARoxetine 2017-0 Yes 40mg QD Take [address] (PAXIL) 40 2-23 by [facility] 10:23: nightly. [address] OXcarbazepi 2017-0 Yes 600mg Q.[id number] Take [address] ne 2-23 [id number] [facility] (TRILEPTAL) 10:23: 3D mouth 3 Med ical 600 [facility] 59 (three) Center tablet times daily. PARoxetine 2017-0 Yes 40mg QD Take [address] (PAXIL) 40 2-23 by [facility] 10:23: nightly. [address] OXcarbazepi 2017-0 Yes 600mg Q.[id number] Take [address] ne 2-23 [id number] mg [facility] (TRILEPTAL) 10:23: 3D mouth 3 Med ical 600 [facility] 59 (three) Center tablet times daily. OXcarbazepi 2017-0 Yes 600mg Q.[id number] Take [address] ne 2-23 [id number] mg by [facility] (TRILEPTAL) 10:23: 3D mouth 3 Med ical 600 [facility] 59 (three) Center tablet times daily. PARoxetine 2017-0 Yes 40mg QD Take [address] (PAXIL) 40 2-23 by [facility] 10:23: nightly. [address] PARoxetine 2017-0 Yes 40mg QD Take [address] (PAXIL) 40 2-23 by [facility] 10:23: nightly. [address] OXcarbazepi 2017-0 Yes 600mg Q.[id number] Take [address] ne 2-23 [id number] mg [facility] (TRILEPTAL) 10:23: 3D mouth 3 Med ical 600 [facility] 59 (three) Center tablet times daily. PARoxetine 2017-0 Yes 40mg QD Take [address] (PAXIL) 40 2-23 by [facility] 10:23: nightly. [address] OXcarbazepi 2017-0 Yes 600mg Q.[id number] Take [address] ne 2-23 [id number] mg by [facility] (TRILEPTAL) 10:23: 3D mouth 3 Med ical 600 [facility] 59 (three) Center tablet times daily. PARoxetine 2017-0 Yes 40mg QD Take [address] (PAXIL) 40 2-23 by [facility] 10:23: [facility]ly. [address] 2017-0 Yes 600mg Q.[id number] Take [address] ne 2-23 [id number] mg by [facility] (TRILEPTAL) 10:23: 3D mouth 3 Med ical 600 [facility] 59 (three) Center tablet times daily. PARoxetine 2017-0 Yes 40mg QD Take [address] (PAXIL) 40 2-23 by [facility] 10:23: [facility]ly. [address] 2017-0 Yes 600mg Q.[id number] Take [address] ne 2-23 [id number] mg [facility] (TRILEPTAL) 10:23: 3D mouth 3 Med ical 600 [facility] 59 (three) Center tablet times daily. PARoxetine 2017-0 Yes 40mg QD Take [address] (PAXIL) 40 2-23 by [facility] 10:23: nightly. [address] OXcarbazepi 2017-0 Yes 600mg Q.[id number] Take [address] ne 2-23 [id number] [facility] (TRILEPTAL) 10:23: 3D mouth 3 Med ical 600 [facility] 59 (three) Center tablet times daily. PARoxetine 2017-0 Yes 40mg QD Take [address] (PAXIL) 40 2-23 by [facility] 10:23: nightly. [address] 2017-0 Yes 600mg Q.[id number] Take [address] ne 2-23 [id number] [facility] (TRILEPTAL) 10:23: 3D mouth 3 Med ical 600 [facility] 59 (three) Center tablet times daily. PARoxetine 2017-0 Yes 40mg QD Take [address] (PAXIL) 40 2-23 by [facility] 10:23: nightly. [address] OXcarbazepi 2017-0 Yes 600mg Q.[id number] Take [address] ne 2-23 [id number] mg by [facility] (TRILEPTAL) 10:23: 3D mouth 3 Med ical 600 [facility] 59 (three) Center tablet times daily. PARoxetine 2017-0 Yes 40mg QD Take [address] (PAXIL) 40 2-23 by [facility] 10:23: nightly. [address] OXcarbazepi 2017-0 Yes 600mg Q.[id number] Take [address] ne 2-23 [id number] mg by [facility] (TRILEPTAL) 10:23: 3D mouth 3 Med ical 600 [facility] 59 (three) Center tablet times daily. OXcarbazepi 2017-0 Yes 600mg Q.[id number] Take [address] ne 2-23 [id number] [facility] by [facility] (TRILEPTAL) 10:23: 3D mouth 3 Med ical 600 [facility] 59 (three) Center tablet times daily. PARoxetine 2017-0 Yes 40mg QD Take [address] (PAXIL) 40 2-23 by [facility] 10:23: nightly. [address] OXcarbazepi 2017-0 Yes 600mg Q.[id number] Take [address] ne 2-23 [id number] mg by [facility] (TRILEPTAL) 10:23: 3D mouth 3 Med ical 600 [facility] 59 (three) Center tablet times daily. PARoxetine 2017-0 Yes 40mg QD Take [address] (PAXIL) 40 2-23 by mouth [facility] 10:23: nightly. [address] OXcarbazepi 2017-0 Yes 600mg Q.[id number] Take [address] ne 2-23 [id number] mg by [facility] (TRILEPTAL) 10:23: 3D mouth 3 Med ical 600 [facility] 59 (three) Center tablet times daily. PARoxetine 2017-0 Yes 40mg QD Take [address] (PAXIL) 40 2-23 by [facility] 10:23: nightly. [address] PARoxetine 2017-0 Yes 40mg QD Take [address] (PAXIL) 40 2-23 by [facility] 10:23: nightly. [address] OXcarbazepi 2017-0 Yes 600mg Q.[id number] Take [address] ne 2-23 [id number] mg [facility] (TRILEPTAL) 10:23: 3D mouth 3 Med ical 600 [facility] 59 (three) Center tablet times daily. PARoxetine 2017-0 Yes 40mg QD Take [address] (PAXIL) 40 2-23 by [facility] 10:23: nightly. [address] OXcarbazepi 2017-0 Yes 600mg Q.[id number] Take [address] ne 2-23 [id number] [facility] by [facility] (TRILEPTAL) 10:23: 3D mouth 3 Med ical 600 [facility] 59 (three) Center tablet times daily. PARoxetine 2017-0 Yes 40mg QD Take [address] (PAXIL) 40 2-23 by [facility] 10:23: [facility]ly. [address] 2017-0 Yes 600mg Q.17420150 Take [address] ne 2-23 [id number] mg by [facility] (TRILEPTAL) 10:23: 3D mouth 3 Med ical 600 [facility] 59 (three) Center tablet times daily. PARoxetine 2017-0 Yes 40mg QD Take [address] (PAXIL) 40 2-23 by [facility] tablet 10:23: nightly. [address] OXcarbazepi 2017-0 Yes 600mg Q.29973651 Take [address] ne 2-23 [id number] [facility] by [facility] (TRILEPTAL) 10:23: 3D mouth 3 Med ical 600 [facility] 59 (three) Center tablet times daily. PARoxetine 2017-0 Yes 40mg QD Take [address] (PAXIL) 40 2-23 by [facility] 10:23: nightly. [facility] OXcarbazepi 2017-0 Yes 600mg Q.[id number] Take [address] ne 2-23 [id number] [facility] (TRILEPTAL) 10:23: 3D mouth 3 Med ical 600 [facility] 59 (three) Center tablet times daily. PARoxetine 2017-0 Yes 40mg QD Take [address] (PAXIL) 40 2-23 by [facility] 10:23: nightly. [facility] OXcarbazepi 2017-0 Yes 600mg Q.[id number] Take [address] ne 2-23 [id number] mg by [facility] (TRILEPTAL) 10:23: 3D mouth 3 Med ical 600 [facility] 59 (three) Center tablet times daily. PARoxetine 2017-0 Yes 40mg QD Take [address] (PAXIL) 40 2-23 by [facility] 10:23: nightly. [facility] OXcarbazepi 2017-0 Yes 600mg Q.[id number] Take [address] ne 2-23 [id number] mg by [facility] (TRILEPTAL) 10:23: 3D mouth 3 Med ical 600 [facility] 59 (three) Center tablet times daily. PARoxetine 2017-0 Yes 40mg QD Take [address] (PAXIL) 40 2-23 by [facility] 10:23: nightly. [facility] OXcarbazepi 2017-0 Yes 600mg Q.[id number] Take [address] ne 2-23 [id number] mg by [facility] (TRILEPTAL) 10:23: 3D mouth 3 Med ical 600 [facility] 59 (three) Center tablet times daily. OXcarbazepi 2017-0 Yes 600mg Q.[id number] Take [address] ne 2-23 [id number] mg by [facility] (TRILEPTAL) 10:23: 3D mouth 3 Med ical 600 [facility] 59 (three) Center tablet times daily. PARoxetine 2017-0 Yes 40mg QD Take [address] (PAXIL) 40 2-23 by [facility] 10:23: nightly. [facility] OXcarbazepi 2017-0 Yes 600mg Q.[id number] Take [address] ne 2-23 [id number] mg by [facility] (TRILEPTAL) 10:23: 3D mouth 3 Med ical 600 [facility] 59 (three) Center tablet times daily. PARoxetine 2017-0 Yes 40mg QD Take [address] (PAXIL) 40 2-23 by [facility] 10:23: nightly. [address] OXcarbazepi 2017-0 Yes 600mg Q.18499997 Take [address] ne 2-23 [id number] [facility] (TRILEPTAL) 10:23: 3D mouth 3 Med ical 600 [facility] 59 (three) Center tablet times daily. PARoxetine 2017-0 Yes 40mg QD Take [address] (PAXIL) 40 2-23 by mouth [facility] 10:23: nightly. [address] OXcarbazepi 2017-0 Yes 600mg Q.44969175 Take [address] ne 2-23 [id number] [facility] by [facility] (TRILEPTAL) 10:23: 3D mouth 3 Med ical 600 [facility] 59 (three) Center tablet times daily. PARoxetine 2017-0 Yes 40mg QD Take [address] (PAXIL) 40 2-23 by [facility] 10:23: nightly. [address] LORazepam 2017-0 Yes 1mg Take 1 [...] Goal Plan of Care Note [code = 52354-7] Goal Plan of Care Note [code = 18020-5] Goal Plan of Care Note [code = 01117-3] Goal Plan of Care Note [code = 62974-8] Goal Plan of Care Note [code = 55402-6] Goal Plan of Care Note [code = 76917-4] Goal Plan of Care Note [code = 36755-7] Goal Plan of Care Note [code = 53967-1] Goal Plan of Care Note [code = 60151-3] Goal Plan of Care Note [code = 44694-2] Goal Plan of Care Note [code = 35092-6] Goal Plan of Care Note [code = 89378-8] Goal Plan of Care Note [code = 06538-7] Goal Plan of Care Note [code = 34984-4] Goal Plan of Care Note [code = 07904-9] Goal Plan of Care Note [code = 01979-8] Goal Plan of Care Note [code = 78351-1] Goal Plan of Care Note [code = 05983-1] Goal Plan of Care Note [code = 48347-5] Goal Plan of Care Note [code = 53648-4] Goal Plan of Care Note [code = 69272-8] Goal Plan of Care Note [code = 41697-9] Goal Plan of Care Note [code = 87256-4] Goal Plan of Care Note [code = 07582-8] Goal Plan of Care Note [code = 39340-5] Goal Plan of Care Note [code = 89239-6] Goal Plan of Care Note [code = 24174-1] Goal Plan of Care Note [code = 77627-3] Goal Plan of Care Note [code = 64871-0] Goal Plan of Care Note [code = 17898-1] Goal Plan of Care Note [code = 31837-4] Goal Plan of Care Note [code = 50578-2] Goal Plan of Care Note [code = 32428-6] Goal Plan of Care Note [code = 82193-1] Goal Plan of Care Note [code = 81733-5] Goal Plan of Care Note [code = 71745-1] Goal Plan of Care Note [code = 54293-6] Goal Plan of Care Note [code = 77756-4] Goal Plan of Care Note [code = 12084-2] Goal Plan of Care Note [code = 79318-1] Goal Plan of Care Note [code = 81561-2] Goal Plan of Care Note [code = 70554-5] Goal Plan of Care Note [code = 57225-9] Goal Plan of Care Note [code = 43701-0] Goal Plan of Care Note [code = 25374-3] Goal Plan of Care Note [code = 41212-0] Goal Plan of Care Note [code = 61914-1] Goal Plan of Care Note [code = 30847-6] Goal Plan of Care Note [code = 21839-4] Goal Plan of Care Note [code = 73039-5] Goal Plan of Care Note [code = 73476-7] Goal Plan of Care Note [code = 07997-7] Goal Plan of Care Note [code = 82957-8] Goal Plan of Care Note [code = 58449-7] Goal Plan of Care Note [code = 74366-1] Goal Plan of Care Note [code = 81813-3] Goal Plan of Care Note [code = 86475-1] Goal Plan of Care Note [code = 11513-2] Goal Plan of Care Note [code = 21279-6] Goal Plan of Care Note [code = 44500-7] Goal Plan of Care Note [code = 17738-4] Goal Plan of Care Note [code = 49762-3] Goal Plan of Care Note [code = 82768-4] Goal Plan of Care Note [code = 37372-6] Goal Plan of Care Note [code = 81220-1] Goal Plan of Care Note [code = 80832-1] Goal Plan of Care Note [code = 14020-9] Goal Plan of Care Note [code = 96151-5] Goal Plan of Care Note [code = 55556-0] Goal Plan of Care Note [code = 82760-1] Goal Plan of Care Note [code = 17403-8] Goal Plan of Care Note [code = 43375-3] Goal Plan of Care Note [code = 89110-6] Goal Plan of Care Note [code = 43168-9] Goal Plan of Care Note [code = 43489-9] Goal Plan of Care Note [code = 04498-7] Goal Plan of Care Note [code = 21964-2] Goal Plan of Care Note [code = 87842-3] Goal Plan of Care Note [code = 79100-3] Goal Plan of Care Note [code = 25740-8] Goal Plan of Care Note [code = 37298-2] Goal Plan of Care Note [code = 96775-3] Goal Plan of Care Note [code = 50285-6] Goal Plan of Care Note [code = 61802-1] Goal Plan of Care Note [code = 17627-2] Goal Plan of Care Note [code = 13558-2] Goal Plan of Care Note [code = 56347-6] Goal Plan of Care Note [code = 55366-5] Goal Plan of Care Note [code = 19877-2] Goal Plan of Care Note [code = 50158-3] Goal Plan of Care Note [code = 19719-4] Goal Plan of Care Note [code = 14214-8] Goal Plan of Care Note [code = 45709-1] Goal Plan of Care Note [code = 40889-2] Goal Plan of Care Note [code = 33083-9] Goal Plan of Care Note [code = 98741-8] Goal Plan of Care Note [code = 83095-1] Goal Plan of Care Note [code = 42981-1] Goal Plan of Care Note [code = 02791-8] Goal Plan of Care Note [code = 10510-4] Goal Plan of Care Note [code = 43723-4] Goal Plan of Care Note [code = 90965-1] Goal Plan of Care Note [code = 18247-6] Goal Plan of Care Note [code = 75515-0] Goal Plan of Care Note [code = 03319-7] Goal Plan of Care Note [code = 13837-2] Goal Plan of Care Note [code = 96666-8] Goal Plan of Care Note [code = 97392-8] Goal Plan of Care Note [code = 84941-2] Goal Plan of Care Note [code = 50594-4] Goal Plan of Care Note [code = 22687-2] Goal Plan of Care Note [code = 82402-7] Goal Plan of Care Note [code = 07175-5] Goal Plan of Care Note [code = 40351-5] Goal Plan of Care Note [code = 15222-3] Goal Plan of Care Note [code = 08603-0] Goal Plan of Care Note [code = 46505-8] Goal Plan of Care Note [code = 82811-9] Goal Plan of Care Note [code = 62122-8] Goal Plan of Care Note [code = 36446-9] Goal Plan of Care Note [code = 98774-2] Goal Plan of Care Note [code = 89282-5] Goal Plan of Care Note [code = 73968-3] Goal Plan of Care Note [code = 53570-8] Goal Plan of Care Note [code = 92368-7] Goal Plan of Care Note [code = 43316-0] Goal Plan of Care Note [code = 07980-5] Goal Plan of Care Note [code = 96285-6] Goal Plan of Care Note [code = 60578-8] Goal Plan of Care Note [code = 44873-2] Goal Plan of Care Note [code = 00389-5] Goal Plan of Care Note [code = 41461-0] Goal Plan of Care Note [code = 74433-1] Goal Plan of Care Note [code = 95533-7] Goal Plan of Care Note [code = 97421-0] Goal Plan of Care Note [code = 75899-8] Goal Plan of Care Note [code = 07666-7] Goal Plan of Care Note [code = 39280-2] Goal Plan of Care Note [code = 54667-5] Goal Plan of Care Note [code = 85797-5] Goal Plan of Care Note [code = 22708-3] Goal Plan of Care Note [code = 10659-7] Goal Plan of Care Note [code = 64944-2] Goal Plan of Care Note [code = 95546-4] Goal Plan of Care Note [code = 82500-2] Goal Plan of Care Note [code = 03457-7] Goal Plan of Care Note [code = 13368-1] Goal Plan of Care Note [code = 25894-9] Goal Plan of Care Note [code = 19753-7] Goal Plan of Care Note [code = 43585-1] Goal Plan of Care Note [code = 13745-5] Goal Plan of Care Note [code = 79505-1] Goal Plan of Care Note [code = 52681-3] Goal Plan of Care Note [code = 64312-5] Goal Plan of Care Note [code = 53002-3] Goal Plan of Care Note [code = 13861-4] Goal Plan of Care Note [code = 20346-4] Goal Plan of Care Note [code = 91621-5] Goal Plan of Care Note [code = 24613-7] Goal Plan of Care Note [code = 80380-9] Goal Plan of Care Note [code = 25481-9] Goal Plan of Care Note [code = 07113-2] Goal Plan of Care Note [code = 86486-7] Goal Plan of Care Note [code = 38030-6] Goal Plan of Care Note [code = 14240-0] Goal Plan of Care Note [code = 02309-9] Goal Plan of Care Note [code = 36889-1] Goal Plan of Care Note [code = 02262-4] Goal Plan of Care Note [code = 98657-9] Goal Plan of Care Note [code = 21890-0] Goal Plan of Care Note [code = 44324-4] Goal Plan of Care Note [code = 83545-9] Goal Plan of Care Note [code = 70609-0] Goal Plan of Care Note [code = 50557-2] Goal Plan of Care Note [code = 73811-1] Goal Plan of Care Note [code = 99497-8] Goal Plan of Care Note [code = 26733-0] Goal Plan of Care Note [code = 11530-9] Goal Plan of Care Note [code = 27893-9] Goal Plan of Care Note [code = 35331-5] Goal Plan of Care Note [code = 39141-0] Goal Plan of Care Note [code = 53033-5] Goal Plan of Care Note [code = 19779-2] Goal Plan of Care Note [code = 84821-0] Goal Plan of Care Note [code = 09702-0] Goal Plan of Care Note [code = 92456-6] Goal Plan of Care Note [code = 96504-8] Goal Plan of Care Note [code = 22796-7] Goal Plan of Care Note [code = 15354-1] Goal Plan of Care Note [code = 25260-9] Goal Plan of Care Note [code = 09538-5] Goal Plan of Care Note [code = 83817-6] Goal Plan of Care Note [code = 12156-2] Goal Plan of Care Note [code = 82575-7] Goal Plan of Care Note [code = 36612-4] Goal Plan of Care Note [code = 20220-9] Goal Plan of Care Note [code = 79563-3] Goal Plan of Care Note [code = 72030-2] Goal Plan of Care Note [code = 48947-0] Goal Plan of Care Note [code = 70874-5] Goal Plan of Care Note [code = 80625-5] Goal Plan of Care Note [code = 30010-4] Goal Plan of Care Note [code = 54068-1] Goal Plan of Care Note [code = 35899-6] Goal Plan of Care Note [code = 16922-6] Goal Plan of Care Note [code = 37173-4] Goal Plan of Care Note [code = 25646-0] Goal Plan of Care Note [code = 11227-1] Encounters Start End Encounter Admission Attending Care Care Encounter Source Date/Time Date/Time Type Type Clinicians Facility Department ID 2021-06-01 Outpatient [facility] [id number] [place] 01:36:29 [id number] [facility] 2022-05-24 2022-05-24 Outpatient [facility] [id number] Cristian 10:36:59 10:36:59 [id number] F Jerman 2022-02-11 2022-02-11 Outpatient [facility] [id number] Cristian 09:04:48 09:04:48 [id number] F Jerman 2022-02-10 2022-02-10 Outpatient [facility] [id number] Cristian 09:29:34 09:29:34 1205 F Jerman 2022-02-10 2022-02-10 Outpatient [id number] 00:00:00 00:00:00 Visit 4089-4cab 089-4cab-9 -4fv9-y5l bf5-s6u686 943pmav52 bafa93 2022-01-10 2022-01-10 Outpatient SFA SFA [id number] 022 Cristian 09:16:14 09:16:14 1104 F Jerman 2022-01-10 2022-01-10 Outpatient [id number]- [id number] f2 accaa6-a 00:00:00 00:00:00 Visit aca9-4c83 ca9-4c83-a -p1kl-xb1 7eb-bc13f3 2i3c077n7 f032f9 2021-12-19 2021-12-19 Outpatient SFA SFA [id number] 022 Cristian 16:11:31 16:11:31 1013 F Jerman 2021-12-19 2021-12-19 Outpatient [id number]- [id number] 466cae-a 00:00:00 00:00:00 Visit h065-883r 770-441f-a -adae-62b amelia-62bace gekbk20wl fd81af 2021-09-17 2021-09-17 Outpatient vnq0avje- [id number] aa s4owam-3 00:00:00 00:00:00 Visit 935a-4f50 35a-4f50-b -p33z-h8d 77d-c2ba85 [id number] 2020-08-03 2020-08-03 Outpatient [facility] [id number] [facility] 10:00:00 10:00:00 [facility] 2020-07-25 2020-07-25 Orders Doctor ABE [id number] 00:00:00 00:00:00 Only Unassigned, BK [id number] [place] [facility] [id number] [id number] 2019-09-26 2019-09-26 Outpatient [facility] [id number] [facility] 16:00:00 16:00:00 [facility] 2018-10-21 2018-10-21 [facility] [id number] 00:00:00 00:00:00 Natacha Nguyen [id number] Ade 4.2.7.2.686 [facility] [id number] [facility] [address] Building Results Test Description Test Time Test Comments Results Result Comments Source TSH, THIRD GENERATION 2022-05-26 02:57:49 Test Item Value Reference Range Interpretation Comme nts TSH, THIRD GENERATION (test code = 2821) 6.350 UIU/ML 0.400-4.100 H LIPID [id number] 01:09:34 Test Item Value Reference Range Interpretation [...] MOREINFORMATION , SEE CLIENT ANNOUNCE MENT AT [email or web address] [email or web address] RATIO LDL/HDL 2.73 RATIO <3.22 [facility] has important (test code = 2238) pathology staff changes effecti ve 05/07/2022. New pathology staff will provide uninter rupted, excellent patie nt care and clinical consultation. S ee URL: [email or web address] UNLES S OTHERWISE INDIC ATED, ALL TESTING PER FORMED AT [facility] [place], [facility]. [address] [place] [address] [place] EM[facility] DIRECTOR: Andrew WHITLEY CONNOR NUMBER [id number] [facility] ACCREDITATION N O. [id number] HEMOGLOBIN [id number] 03:17:24 Test Item Value Reference Range Interpretation Comments HEMOGLOBIN A1c (test 6.4 % 4.2-5.6 H AMERIC AN DIABETES code = 92754) ASSOCIATION IDELIN[employer] FOR HGB A1C: PREDIABETES/INC REASED [...] TESTING OR LABORATORY C ONSULTATION. TSH, THIRD [id number] 05:15:49 Test Item Value Reference Range Interpretation Comments TSH, THIRD GENERATION (test code 2.080 UIU/ML 0.400-4.100 = 2821) HEMOGLOBIN [id number] 03:46:00 Test Item Value Reference Range Interpretation Comments HEMOGLOBIN A1c (test 6.6 % 4.2-5.6 H AMERIC AN DIABETES code = 96966) ASSOCIATION [employer]LIN[employer] FOR HGB A1C: PREDIABETES/INC REASED [...] INDICATED, ALL TESTING PER FORMED ATCLINICAL PATH [facility], [facility]. [address] [place] [address] LABORATORY DIRE CTOR: DIANA RUSS M.D. CLIA NUMBER [id number] [facility] [place]. [id number] LIPID [id number] 02:59:52 Test Item Value Reference Range Interpretation [...] , SEE CLIENT ANNOUNCE MENT AT [email or web address] RISK RATIO LDL/HDL 4.02 RATIO <3.22 H (test code = 2238) [id number] 00:00:00 Test Item Value Reference Range Interpretation Comments TSH, THIRD GENERATION (test code 2.080 UIU/ML = 2821) [id number] 00:00:00 Test Item Value Reference Range Interpretation Comments TSH, THIRD GENERATION (test code 2.080 UIU/ML = 2821) [id number] 00:00:00 Test Item Value Reference Range Interpretation Comments TSH, THIRD GENERATION (test code 2.080 UIU/ML = 2821) LIPID [id number] 00:00:00 Test Item Value Reference Range Interpretation Comments CHOLESTEROL (test code = 2210) 292 MG/DL TRIGLYCERIDES (test code = 2232) 184 MG/DL HDL CHOLESTEROL (test code = 2220) 51 MG/DL CALC LDL CHOL (test code = 2237) 205 MG/DL RISK RATIO LDL/HDL (test code = 4.02 RATIO 2238) LIPID [id number] 00:00:00 Test Item Value Reference Range Interpretation Comments CHOLESTEROL (test code = 2210) 292 MG/DL TRIGLYCERIDES (test code = 2232) 184 MG/DL HDL CHOLESTEROL (test code = 2220) 51 MG/DL CALC LDL CHOL (test code = 2237) 205 MG/DL RISK RATIO LDL/HDL (test code = 4.02 RATIO 2238) HEMOGLOBIN [id number] 00:00:00 Test Item Value Reference Range Interpretation Comments HEMOGLOBIN A1c (test code = 27868) 6.6 % HEMOGLOBIN [id number] 00:00:00 Test Item Value Reference Range Interpretation Comments HEMOGLOBIN A1c (test code = 38787) 6.6 % HEMOGLOBIN [id number] 00:00:00 Test Item Value Reference Range Interpretation Comments HEMOGLOBIN A1c (test code = 73838) 6.6 % [id number] 00:00:00 Test Item Value Reference Range Interpretation Comments TSH, THIRD GENERATION (test code 2.080 UIU/ML = 2821) [id number] 00:00:00 Test Item Value Reference Range Interpretation Comments TSH, THIRD GENERATION (test code 2.080 UIU/ML = 2821) [id number] 00:00:00 Test Item Value Reference Range Interpretation Comments TSH, THIRD GENERATION (test code 2.080 UIU/ML = 2821) LIPID [id number] 00:00:00 Test Item Value Reference Range Interpretation Comments CHOLESTEROL (test code = 2210) 292 MG/DL TRIGLYCERIDES (test code = 2232) 184 MG/DL HDL CHOLESTEROL (test code = 2220) 51 MG/DL CALC LDL CHOL (test code = 2237) 205 MG/DL RISK RATIO LDL/HDL (test code = 4.02 RATIO 2238) LIPID [id number] 00:00:00 Test Item Value Reference Range Interpretation Comments CHOLESTEROL (test code = 2210) 292 MG/DL TRIGLYCERIDES (test code = 2232) 184 MG/DL HDL CHOLESTEROL (test code = 2220) 51 MG/DL CALC LDL CHOL (test code = 2237) 205 MG/DL RISK RATIO LDL/HDL (test code = 4.02 RATIO 2238) HEMOGLOBIN [id number] 00:00:00 Test Item Value Reference Range Interpretation Comments HEMOGLOBIN A1c (test code = 01166) 6.6 % HEMOGLOBIN [id number] 00:00:00 Test Item Value Reference Range Interpretation Comments HEMOGLOBIN A1c (test code = 55372) 6.6 % HEMOGLOBIN [id number] 00:00:00 Test Item Value Reference Range Interpretation Comments HEMOGLOBIN A1c (test code = 49683) 6.6 % [id number] 00:00:00 Test Item Value Reference Range Interpretation Comments TSH, THIRD GENERATION (test code 2.080 UIU/ML = 2821) [id number] 00:00:00 Test Item Value Reference Range Interpretation Comments TSH, THIRD GENERATION (test code 2.080 UIU/ML = 2821) LIPID [id number] 00:00:00 Test Item Value Reference Range Interpretation Comments CHOLESTEROL (test code = 2210) 292 MG/DL TRIGLYCERIDES (test code = 2232) 184 MG/DL HDL CHOLESTEROL (test code = 2220) 51 MG/DL CALC LDL CHOL (test code = 2237) 205 MG/DL RISK RATIO LDL/HDL (test code = 4.02 RATIO 2238) HEMOGLOBIN [id number] 00:00:00 Test Item Value Reference Range Interpretation Comments HEMOGLOBIN A1c (test code = 09197) 6.6 % HEMOGLOBIN [id number] 00:00:00 Test Item Value Reference Range Interpretation Comments HEMOGLOBIN A1c (test code = 70591) 6.6 % [id number] 00:00:00 Test Item Value Reference Range Interpretation Comments TSH, THIRD GENERATION (test code 2.080 UIU/ML = 2821) [id number] 00:00:00 Test Item Value Reference Range Interpretation Comments TSH, THIRD GENERATION (test code 2.080 UIU/ML = 2821) [id number] 00:00:00 Test Item Value Reference Range Interpretation Comments TSH, THIRD GENERATION (test code 2.080 UIU/ML = 2821) LIPID [id number] 00:00:00 Test Item Value Reference Range Interpretation Comments CHOLESTEROL (test code = 2210) 292 MG/DL TRIGLYCERIDES (test code = 2232) 184 MG/DL HDL CHOLESTEROL (test code = 2220) 51 MG/DL CALC LDL CHOL (test code = 2237) 205 MG/DL RISK RATIO LDL/HDL (test code = 4.02 RATIO 2238) LIPID [id number] 00:00:00 Test Item Value Reference Range Interpretation Comments CHOLESTEROL (test code = 2210) 292 MG/DL TRIGLYCERIDES (test code = 2232) 184 MG/DL HDL CHOLESTEROL (test code = 2220) 51 MG/DL CALC LDL CHOL (test code = 2237) 205 MG/DL RISK RATIO LDL/HDL (test code = 4.02 RATIO 2238) HEMOGLOBIN [id number] 00:00:00 Test Item Value Reference Range Interpretation Comments HEMOGLOBIN A1c (test code = 87390) 6.6 % HEMOGLOBIN [id number] 00:00:00 Test Item Value Reference Range Interpretation Comments HEMOGLOBIN A1c (test code = 82043) 6.6 % HEMOGLOBIN [id number] 00:00:00 Test Item Value Reference Range Interpretation Comments HEMOGLOBIN A1c (test code = 33898) 6.6 % HEMOGLOBIN [id number] 00:00:00 Test Item Value Reference Range Interpretation Comments HEMOGLOBIN A1c (test code = 40740) 6.8 % HEMOGLOBIN [id number] 00:00:00 Test Item Value Reference Range Interpretation Comments HEMOGLOBIN A1c (test code = 63386) 6.8 % HEMOGLOBIN [id number] 00:00:00 Test Item Value Reference Range Interpretation Comments HEMOGLOBIN A1c (test code = 99765) 6.8 % LIPID [id number] 00:00:00 Test Item Value Reference Range Interpretation Comments CHOLESTEROL (test code = 2210) 303 MG/DL TRIGLYCERIDES (test code = 2232) 191 MG/DL HDL CHOLESTEROL (test code = 2220) 61 MG/DL CALC LDL CHOL (test code = 2237) 205 MG/DL RISK RATIO LDL/HDL (test code = 3.36 RATIO 2238) LIPID [id number] 00:00:00 Test Item Value Reference Range Interpretation Comments CHOLESTEROL (test code = 2210) 303 MG/DL TRIGLYCERIDES (test code = 2232) 191 MG/DL HDL CHOLESTEROL (test code = 2220) 61 MG/DL CALC LDL CHOL (test code = 2237) 205 MG/DL RISK RATIO LDL/HDL (test code = 3.36 RATIO 2238) [id number] 00:00:00 Test Item Value Reference Range Interpretation Comments TSH, THIRD GENERATION (test code 0.769 UIU/ML = 2821) [id number] 00:00:00 Test Item Value Reference Range Interpretation Comments TSH, THIRD GENERATION (test code 0.769 UIU/ML = 2821) [id number] 00:00:00 Test Item Value Reference Range Interpretation Comments TSH, THIRD GENERATION (test code 0.769 UIU/ML = 2821) COMPREHENSIVE METABOLIC [id number] 00:00:00 Test Item Value Reference Range Interpretation Comments GLUCOSE (test code = 2217) 131 MG/DL BUN (test code = 2208) 13 MG/DL CREATININE (test code = 2214) 0.65 MG/DL eGFR AMER. (test code 113 ML/MIN/1.73 = 63897) eGFR NON- AMER. (test 97 ML/MIN/1.73 code = 80633) CALC BUN/CREAT (test code = 20 RATIO [...] code = 2219) 23 U/L COMPREHENSIVE METABOLIC [id number] 00:00:00 Test Item Value Reference Range Interpretation Comments GLUCOSE (test code = 2217) 131 MG/DL BUN (test code = 2208) 13 MG/DL CREATININE (test code = 2214) 0.65 MG/DL eGFR AMER. (test code 113 ML/MIN/1.73 = 38557) eGFR NON- AMER. (test 97 ML/MIN/1.73 code = 32185) CALC BUN/CREAT (test code = 20 RATIO [...] (test code = 2219) 23 U/L HEMOGLOBIN [id number] 00:00:00 Test Item Value Reference Range Interpretation Comments HEMOGLOBIN A1c (test code = 74899) 6.8 % HEMOGLOBIN [id number] 00:00:00 Test Item Value Reference Range Interpretation Comments HEMOGLOBIN A1c (test code = 96800) 6.8 % HEMOGLOBIN [id number] 00:00:00 Test Item Value Reference Range Interpretation Comments HEMOGLOBIN A1c (test code = 60351) 6.8 % LIPID [id number] 00:00:00 Test Item Value Reference Range Interpretation Comments CHOLESTEROL (test code = 2210) 303 MG/DL TRIGLYCERIDES (test code = 2232) 191 MG/DL HDL CHOLESTEROL (test code = 2220) 61 MG/DL CALC LDL CHOL (test code = 2237) 205 MG/DL RISK RATIO LDL/HDL (test code = 3.36 RATIO 2238) LIPID [id number] 00:00:00 Test Item Value Reference Range Interpretation Comments CHOLESTEROL (test code = 2210) 303 MG/DL TRIGLYCERIDES (test code = 2232) 191 MG/DL HDL CHOLESTEROL (test code = 2220) 61 MG/DL CALC LDL CHOL (test code = 2237) 205 MG/DL RISK RATIO LDL/HDL (test code = 3.36 RATIO 2238) [id number] 00:00:00 Test Item Value Reference Range Interpretation Comments TSH, THIRD GENERATION (test code 0.769 UIU/ML = 2821) [id number] 00:00:00 Test Item Value Reference Range Interpretation Comments TSH, THIRD GENERATION (test code 0.769 UIU/ML = 2821) [id number] 00:00:00 Test Item Value Reference Range Interpretation Comments TSH, THIRD GENERATION (test code 0.769 UIU/ML = 2821) COMPREHENSIVE METABOLIC [id number] 00:00:00 Test Item Value Reference Range Interpretation Comments GLUCOSE (test code = 2217) 131 MG/DL BUN (test code = 2208) 13 MG/DL CREATININE (test code = 2214) 0.65 MG/DL eGFR AMER. (test code 113 ML/MIN/1.73 = 41005) eGFR NON- AMER. (test 97 ML/MIN/1.73 code = 85767) CALC BUN/CREAT (test code = 20 RATIO [...] code = 2219) 23 U/L COMPREHENSIVE METABOLIC [id number] 00:00:00 Test Item Value Reference Range Interpretation Comments GLUCOSE (test code = 2217) 131 MG/DL BUN (test code = 2208) 13 MG/DL CREATININE (test code = 2214) 0.65 MG/DL eGFR AMER. (test code 113 ML/MIN/1.73 = 89622) eGFR NON- AMER. (test 97 ML/MIN/1.73 code = 63310) CALC BUN/CREAT (test code = 20 RATIO [...] (test code = 2219) 23 U/L HEMOGLOBIN [id number] 00:00:00 Test Item Value Reference Range Interpretation Comments HEMOGLOBIN A1c (test code = 18312) 6.8 % HEMOGLOBIN [id number] 00:00:00 Test Item Value Reference Range Interpretation Comments HEMOGLOBIN A1c (test code = 59515) 6.8 % LIPID [id number] 00:00:00 Test Item Value Reference Range Interpretation Comments CHOLESTEROL (test code = 2210) 303 MG/DL TRIGLYCERIDES (test code = 2232) 191 MG/DL HDL CHOLESTEROL (test code = 2220) 61 MG/DL CALC LDL CHOL (test code = 2237) 205 MG/DL RISK RATIO LDL/HDL (test code = 3.36 RATIO 2238) [id number] 00:00:00 Test Item Value Reference Range Interpretation Comments TSH, THIRD GENERATION (test code 0.769 UIU/ML = 2821) [id number] 00:00:00 Test Item Value Reference Range Interpretation Comments TSH, THIRD GENERATION (test code 0.769 UIU/ML = 2821) COMPREHENSIVE METABOLIC [id number] 00:00:00 Test Item Value Reference Range Interpretation Comments GLUCOSE (test code = 2217) 131 MG/DL BUN (test code = 2208) 13 MG/DL CREATININE (test code = 2214) 0.65 MG/DL eGFR AMER. (test code 113 ML/MIN/1.73 = 87911) eGFR NON- AMER. (test 97 ML/MIN/1.73 code = 95352) CALC BUN/CREAT (test code = 20 RATIO [...] (test code = 2219) 23 U/L HEMOGLOBIN [id number] 00:00:00 Test Item Value Reference Range Interpretation Comments HEMOGLOBIN A1c (test code = 92017) 6.8 % HEMOGLOBIN [id number] 00:00:00 Test Item Value Reference Range Interpretation Comments HEMOGLOBIN A1c (test code = 93686) 6.8 % HEMOGLOBIN [id number] 00:00:00 Test Item Value Reference Range Interpretation Comments HEMOGLOBIN A1c (test code = 56859) 6.8 % LIPID [id number] 00:00:00 Test Item Value Reference Range Interpretation Comments CHOLESTEROL (test code = 2210) 303 MG/DL TRIGLYCERIDES (test code = 2232) 191 MG/DL HDL CHOLESTEROL (test code = 2220) 61 MG/DL CALC LDL CHOL (test code = 2237) 205 MG/DL RISK RATIO LDL/HDL (test code = 3.36 RATIO 2238) LIPID [id number] 00:00:00 Test Item Value Reference Range Interpretation Comments CHOLESTEROL (test code = 2210) 303 MG/DL TRIGLYCERIDES (test code = 2232) 191 MG/DL HDL CHOLESTEROL (test code = 2220) 61 MG/DL CALC LDL CHOL (test code = 2237) 205 MG/DL RISK RATIO LDL/HDL (test code = 3.36 RATIO 2238) [id number] 00:00:00 Test Item Value Reference Range Interpretation Comments TSH, THIRD GENERATION (test code 0.769 UIU/ML = 2821) [id number] 00:00:00 Test Item Value Reference Range Interpretation Comments TSH, THIRD GENERATION (test code 0.769 UIU/ML = 2821) [id number] 00:00:00 Test Item Value Reference Range Interpretation Comments TSH, THIRD GENERATION (test code 0.769 UIU/ML = 2821) COMPREHENSIVE METABOLIC [id number] 00:00:00 Test Item Value Reference Range Interpretation Comments GLUCOSE (test code = 2217) 131 MG/DL BUN (test code = 2208) 13 MG/DL CREATININE (test code = 2214) 0.65 MG/DL eGFR AMER. (test code 113 ML/MIN/1.73 = 13694) eGFR NON- AMER. (test 97 ML/MIN/1.73 code = 68987) CALC BUN/CREAT (test code = 20 RATIO [...] code = 2219) 23 U/L COMPREHENSIVE METABOLIC [id number] 00:00:00 Test Item Value Reference Range Interpretation Comments GLUCOSE (test code = 2217) 131 MG/DL BUN (test code = 2208) 13 MG/DL CREATININE (test code = 2214) 0.65 MG/DL eGFR AMER. (test code 113 ML/MIN/1.73 = 14474) eGFR NON- AMER. (test 97 ML/MIN/1.73 code = 62907) CALC BUN/CREAT (test code = 20 RATIO [...] (test code = 2219) 23 U/L HEMOGLOBIN [id number] 00:00:00 Test Item Value Reference Range Interpretation Comments HEMOGLOBIN A1c (test code = 61123) 6.6 % HEMOGLOBIN [id number] 00:00:00 Test Item Value Reference Range Interpretation Comments HEMOGLOBIN A1c (test code = 11221) 6.6 % HEMOGLOBIN [id number] 00:00:00 Test Item Value Reference Range Interpretation Comments HEMOGLOBIN A1c (test code = 43475) 6.6 % LIPID [id number] 00:00:00 Test Item Value Reference Range Interpretation Comments CHOLESTEROL (test code = 2210) 261 MG/DL TRIGLYCERIDES (test code = 2232) 159 MG/DL HDL CHOLESTEROL (test code = 2220) 82 MG/DL CALC LDL CHOL (test code = 2237) 150 MG/DL RISK RATIO LDL/HDL (test code = 1.83 RATIO 2238) LIPID [id number] 00:00:00 Test Item Value Reference Range Interpretation Comments CHOLESTEROL (test code = 2210) 261 MG/DL TRIGLYCERIDES (test code = 2232) 159 MG/DL HDL CHOLESTEROL (test code = 2220) 82 MG/DL CALC LDL CHOL (test code = 2237) 150 MG/DL RISK RATIO LDL/HDL (test code = 1.83 RATIO 2238) COMPREHENSIVE METABOLIC [id number] 00:00:00 Test Item Value Reference Range Interpretation Comments GLUCOSE (test code = 2217) 144 MG/DL BUN (test code = 2208) 15 MG/DL CREATININE (test code = 2214) 0.85 MG/DL eGFR AMER. (test code 87 ML/MIN/1.73 = 46213) eGFR NON- AMER. (test 75 ML/MIN/1.73 code = 84950) CALC BUN/CREAT (test code = 18 RATIO [...] code = 2219) 50 U/L COMPREHENSIVE METABOLIC [id number] 00:00:00 Test Item Value Reference Range Interpretation Comments GLUCOSE (test code = 2217) 144 MG/DL BUN (test code = 2208) 15 MG/DL CREATININE (test code = 2214) 0.85 MG/DL eGFR AMER. (test code 87 ML/MIN/1.73 = 82536) eGFR NON- AMER. (test 75 ML/MIN/1.73 code = 86613) CALC BUN/CREAT (test code = 18 RATIO [...] THYROX. BIND. CAPAC. (test code 1.1 = 03771) T4 (THYROXINE) (test code = 4.3 UG/DL 2819) CORRECTED T4 (FTI) (test code = 3.9 UG/DL 2820) TSH, THIRD GENERATION (test 18.900 UIU/ML code = 2821) THYROID II PROFILE (T3U, T4, T7, TSH)[id number] 00:00:00 Test Item Value Reference Range Interpretation Comments T-UPTAKE (test code = 7) 30.2 % THYROX. BIND. CAPAC. (test code 1.1 = 10107) T4 (THYROXINE) (test code = 4.3 UG/DL 2819) CORRECTED T4 (FTI) (test code = 3.9 UG/DL 2820) TSH, THIRD GENERATION (test 18.900 UIU/ML code = 2821) HEMOGLOBIN [id number] 00:00:00 Test Item Value Reference Range Interpretation Comments HEMOGLOBIN A1c (test code = 00982) 6.6 % HEMOGLOBIN [id number] 00:00:00 Test Item Value Reference Range Interpretation Comments HEMOGLOBIN A1c (test code = 68730) 6.6 % HEMOGLOBIN [id number] 00:00:00 Test Item Value Reference Range Interpretation Comments HEMOGLOBIN A1c (test code = 11558) 6.6 % LIPID [id number] 00:00:00 Test Item Value Reference Range Interpretation Comments CHOLESTEROL (test code = 2210) 261 MG/DL TRIGLYCERIDES (test code = 2232) 159 MG/DL HDL CHOLESTEROL (test code = 2220) 82 MG/DL CALC LDL CHOL (test code = 2237) 150 MG/DL RISK RATIO LDL/HDL (test code = 1.83 RATIO 2238) LIPID [id number] 00:00:00 Test Item Value Reference Range Interpretation Comments CHOLESTEROL (test code = 2210) 261 MG/DL TRIGLYCERIDES (test code = 2232) 159 MG/DL HDL CHOLESTEROL (test code = 2220) 82 MG/DL CALC LDL CHOL (test code = 2237) 150 MG/DL RISK RATIO LDL/HDL (test code = 1.83 RATIO 2238) COMPREHENSIVE METABOLIC [id number] 00:00:00 Test Item Value Reference Range Interpretation Comments GLUCOSE (test code = 2217) 144 MG/DL BUN (test code = 2208) 15 MG/DL CREATININE (test code = 2214) 0.85 MG/DL eGFR AMER. (test code 87 ML/MIN/1.73 = 15606) eGFR NON- AMER. (test 75 ML/MIN/1.73 code = 04812) CALC BUN/CREAT (test code = 18 RATIO [...] code = 2219) 50 U/L COMPREHENSIVE METABOLIC [id number] 00:00:00 Test Item Value Reference Range Interpretation Comments GLUCOSE (test code = 2217) 144 MG/DL BUN (test code = 2208) 15 MG/DL CREATININE (test code = 2214) 0.85 MG/DL eGFR AMER. (test code 87 ML/MIN/1.73 = 02803) eGFR NON- AMER. (test 75 ML/MIN/1.73 code = 15034) CALC BUN/CREAT (test code = 18 RATIO [...] THYROX. BIND. CAPAC. (test code 1.1 = 95736) T4 (THYROXINE) (test code = 4.3 UG/DL 2819) CORRECTED T4 (FTI) (test code = 3.9 UG/DL 2820) TSH, THIRD GENERATION (test 18.900 UIU/ML code = 2821) THYROID II PROFILE (T3U, T4, T7, TSH)2020-05-23 00:00:00 Test Item Value Reference Range Interpretation Comments T-UPTAKE (test code = 2817) 30.2 % THYROX. BIND. CAPAC. (test code 1.1 = 38729) T4 (THYROXINE) (test code = 4.3 UG/DL 2819) CORRECTED T4 (FTI) (test code = 3.9 UG/DL 2820) TSH, THIRD GENERATION (test 18.900 UIU/ML code = 2821) HEMOGLOBIN [id number] 00:00:00 Test Item Value Reference Range Interpretation Comments HEMOGLOBIN A1c (test code = 76836) 6.6 % HEMOGLOBIN [id number] 00:00:00 Test Item Value Reference Range Interpretation Comments HEMOGLOBIN A1c (test code = 48036) 6.6 % LIPID [id number] 00:00:00 Test Item Value Reference Range Interpretation Comments CHOLESTEROL (test code = 2210) 261 MG/DL TRIGLYCERIDES (test code = 2232) 159 MG/DL HDL CHOLESTEROL (test code = 2220) 82 MG/DL CALC LDL CHOL (test code = 2237) 150 MG/DL RISK RATIO LDL/HDL (test code = 1.83 RATIO 2238) COMPREHENSIVE METABOLIC [id number] 00:00:00 Test Item Value Reference Range Interpretation Comments GLUCOSE (test code = 2217) 144 MG/DL BUN (test code = 2208) 15 MG/DL CREATININE (test code = 2214) 0.85 MG/DL eGFR AMER. (test code 87 ML/MIN/1.73 = 57908) eGFR NON- AMER. (test 75 ML/MIN/1.73 code = 78416) CALC BUN/CREAT (test code = 18 RATIO [...] THYROX. BIND. CAPAC. (test code 1.1 = 96242) T4 (THYROXINE) (test code = 4.3 UG/DL 2818) CORRECTED T4 (FTI) (test code = 3.9 UG/DL 2820) TSH, THIRD GENERATION (test 18.900 UIU/ML code = 2821) HEMOGLOBIN [id number] 00:00:00 Test Item Value Reference Range Interpretation Comments HEMOGLOBIN A1c (test code = 99803) 6.6 % HEMOGLOBIN [id number] 00:00:00 Test Item Value Reference Range Interpretation Comments HEMOGLOBIN A1c (test code = 71556) 6.6 % HEMOGLOBIN [id number] 00:00:00 Test Item Value Reference Range Interpretation Comments HEMOGLOBIN A1c (test code = 13159) 6.6 % LIPID [id number] 00:00:00 Test Item Value Reference Range Interpretation Comments CHOLESTEROL (test code = 2210) 261 MG/DL TRIGLYCERIDES (test code = 2232) 159 MG/DL HDL CHOLESTEROL (test code = 2220) 82 MG/DL CALC LDL CHOL (test code = 2237) 150 MG/DL RISK RATIO LDL/HDL (test code = 1.83 RATIO 2238) LIPID [id number] 00:00:00 Test Item Value Reference Range Interpretation Comments CHOLESTEROL (test code = 2210) 261 MG/DL TRIGLYCERIDES (test code = 2232) 159 MG/DL HDL CHOLESTEROL (test code = 2220) 82 MG/DL CALC LDL CHOL (test code = 2237) 150 MG/DL RISK RATIO LDL/HDL (test code = 1.83 RATIO 2238) COMPREHENSIVE METABOLIC [id number] 00:00:00 Test Item Value Reference Range Interpretation Comments GLUCOSE (test code = 2217) 144 MG/DL BUN (test code = 2208) 15 MG/DL CREATININE (test code = 2214) 0.85 MG/DL eGFR AMER. (test code 87 ML/MIN/1.73 = 66254) eGFR NON- AMER. (test 75 ML/MIN/1.73 code = 34326) CALC BUN/CREAT (test code = 18 RATIO [...] code = 2219) 50 U/L COMPREHENSIVE METABOLIC [id number] 00:00:00 Test Item Value Reference Range Interpretation Comments GLUCOSE (test code = 2217) 144 MG/DL BUN (test code = 2208) 15 MG/DL CREATININE (test code = 2214) 0.85 MG/DL eGFR AMER. (test code 87 ML/MIN/1.73 = 05737) eGFR NON- AMER. (test 75 ML/MIN/1.73 code = 64352) CALC BUN/CREAT (test code = 18 RATIO [...] THYROX. BIND. CAPAC. (test code 1.1 = 47274) T4 (THYROXINE) (test code = 4.3 UG/DL 281) CORRECTED T4 (FTI) (test code = 3.9 UG/DL 2820) TSH, THIRD GENERATION (test 18.900 UIU/ML code = 2821) THYROID II PROFILE (T3U, T4, T7, TSH)[id number] 00:00:00 Test Item Value Reference Range Interpretation Comments T-UPTAKE (test code = 2817) 30.2 % THYROX. BIND. CAPAC. (test code 1.1 = 50788) T4 (THYROXINE) (test code = 4.3 UG/DL 2819) CORRECTED T4 (FTI) (test code = 3.9 UG/DL 2820) TSH, THIRD GENERATION (test 18.900 UIU/ML code = 2821) HEMOGLOBIN [id number] 00:00:00 Test Item Value Reference Range Interpretation Comments HEMOGLOBIN A1c (test code = 85196) 6.7 % HEMOGLOBIN [id number] 00:00:00 Test Item Value Reference Range Interpretation Comments HEMOGLOBIN A1c (test code = 60726) 6.7 % HEMOGLOBIN [id number] 00:00:00 Test Item Value Reference Range Interpretation Comments HEMOGLOBIN A1c (test code = 38976) 6.7 % LIPID [id number] 00:00:00 Test Item Value Reference Range Interpretation Comments CHOLESTEROL (test code = 2210) 267 MG/DL TRIGLYCERIDES (test code = 2232) 137 MG/DL HDL CHOLESTEROL (test code = 2220) 48 MG/DL CALC LDL CHOL (test code = 2237) 192 MG/DL RISK RATIO LDL/HDL (test code = 4.00 RATIO 2238) LIPID [id number] 00:00:00 Test Item Value Reference Range Interpretation Comments CHOLESTEROL (test code = 2210) 267 MG/DL TRIGLYCERIDES (test code = 2232) 137 MG/DL HDL CHOLESTEROL (test code = 2220) 48 MG/DL CALC LDL CHOL (test code = 2237) 192 MG/DL RISK RATIO LDL/HDL (test code = 4.00 RATIO 2238) COMPREHENSIVE METABOLIC [id number] 00:00:00 Test Item Value Reference Range Interpretation Comments GLUCOSE (test code = 2217) 155 MG/DL BUN (test code = 2208) 14 MG/DL CREATININE (test code = 2214) 0.52 MG/DL eGFR AMER. (test code 122 ML/MIN/1.73 = 99882) eGFR NON- AMER. (test 105 ML/MIN/1.73 code = 06724) CALC BUN/CREAT (test code = 27 RATIO [...] code = 2219) 27 U/L COMPREHENSIVE METABOLIC [id number] 00:00:00 Test Item Value Reference Range Interpretation Comments GLUCOSE (test code = 2217) 155 MG/DL BUN (test code = 2208) 14 MG/DL CREATININE (test code = 2214) 0.52 MG/DL eGFR AMER. (test code 122 ML/MIN/1.73 = 04610) eGFR NON- AMER. (test 105 ML/MIN/1.73 code = 84699) CALC BUN/CREAT (test code = 27 RATIO [...] THYROX. BIND. CAPAC. (test code 1.0 = 74861) T4 (THYROXINE) (test code = 4.7 UG/DL 2819) CORRECTED T4 (FTI) (test code = 4.7 UG/DL 2820) TSH, THIRD GENERATION (test code 0.201 UIU/ML = 2821) THYROID II PROFILE (T3U, T4, T7, TSH)2019 00:00:00 Test Item Value Reference Range Interpretation Comments T-UPTAKE (test code = 2817) 33.1 % THYROX. BIND. CAPAC. (test code 1.0 = 79298) T4 (THYROXINE) (test code = 4.7 UG/DL 2819) CORRECTED T4 (FTI) (test code = 4.7 UG/DL 2820) TSH, THIRD GENERATION (test code 0.201 UIU/ML = 2821) HEMOGLOBIN [id number] 00:00:00 Test Item Value Reference Range Interpretation Comments HEMOGLOBIN A1c (test code = 24161) 6.7 % HEMOGLOBIN [id number] 00:00:00 Test Item Value Reference Range Interpretation Comments HEMOGLOBIN A1c (test code = 94329) 6.7 % HEMOGLOBIN [id number] 00:00:00 Test Item Value Reference Range Interpretation Comments HEMOGLOBIN A1c (test code = 80679) 6.7 % LIPID [id number] 00:00:00 Test Item Value Reference Range Interpretation Comments CHOLESTEROL (test code = 2210) 267 MG/DL TRIGLYCERIDES (test code = 2232) 137 MG/DL HDL CHOLESTEROL (test code = 2220) 48 MG/DL CALC LDL CHOL (test code = 2237) 192 MG/DL RISK RATIO LDL/HDL (test code = 4.00 RATIO 2238) LIPID [id number] 00:00:00 Test Item Value Reference Range Interpretation Comments CHOLESTEROL (test code = 2210) 267 MG/DL TRIGLYCERIDES (test code = 2232) 137 MG/DL HDL CHOLESTEROL (test code = 2220) 48 MG/DL CALC LDL CHOL (test code = 2237) 192 MG/DL RISK RATIO LDL/HDL (test code = 4.00 RATIO 2238) COMPREHENSIVE METABOLIC [id number] 00:00:00 Test Item Value Reference Range Interpretation Comments GLUCOSE (test code = 2217) 155 MG/DL BUN (test code = 2208) 14 MG/DL CREATININE (test code = 2214) 0.52 MG/DL eGFR AMER. (test code 122 ML/MIN/1.73 = 34959) eGFR NON- AMER. (test 105 ML/MIN/1.73 code = 76944) CALC BUN/CREAT (test code = 27 RATIO [...] code = 2219) 27 U/L COMPREHENSIVE METABOLIC [id number] 00:00:00 Test Item Value Reference Range Interpretation Comments GLUCOSE (test code = 2217) 155 MG/DL BUN (test code = 2208) 14 MG/DL CREATININE (test code = 2214) 0.52 MG/DL eGFR AMER. (test code 122 ML/MIN/1.73 = 74888) eGFR NON- AMER. (test 105 ML/MIN/1.73 code = 05826) CALC BUN/CREAT (test code = 27 RATIO [...] THYROX. BIND. CAPAC. (test code 1.0 = 41747) T4 (THYROXINE) (test code = 4.7 UG/DL 2819) CORRECTED T4 (FTI) (test code = 4.7 UG/DL 2820) TSH, THIRD GENERATION (test code 0.201 UIU/ML = 2821) THYROID II PROFILE (T3U, T4, T7, TSH)2019 00:00:00 Test Item Value Reference Range Interpretation Comments T-UPTAKE (test code = 2817) 33.1 % THYROX. BIND. CAPAC. (test code 1.0 = 33936) T4 (THYROXINE) (test code = 4.7 UG/DL 2819) CORRECTED T4 (FTI) (test code = 4.7 UG/DL 2820) TSH, THIRD GENERATION (test code 0.201 UIU/ML = 2821) HEMOGLOBIN [id number] 00:00:00 Test Item Value Reference Range Interpretation Comments HEMOGLOBIN A1c (test code = 04356) 6.7 % HEMOGLOBIN [id number] 00:00:00 Test Item Value Reference Range Interpretation Comments HEMOGLOBIN A1c (test code = 57036) 6.7 % LIPID [id number] 00:00:00 Test Item Value Reference Range Interpretation Comments CHOLESTEROL (test code = 2210) 267 MG/DL TRIGLYCERIDES (test code = 2232) 137 MG/DL HDL CHOLESTEROL (test code = 2220) 48 MG/DL CALC LDL CHOL (test code = 2237) 192 MG/DL RISK RATIO LDL/HDL (test code = 4.00 RATIO 2238) COMPREHENSIVE METABOLIC [id number] 00:00:00 Test Item Value Reference Range Interpretation Comments GLUCOSE (test code = 2217) 155 MG/DL BUN (test code = 2208) 14 MG/DL CREATININE (test code = 2214) 0.52 MG/DL eGFR AMER. (test code 122 ML/MIN/1.73 = 82471) eGFR NON- AMER. (test 105 ML/MIN/1.73 code = 30649) CALC BUN/CREAT (test code = 27 RATIO [...] THYROX. BIND. CAPAC. (test code 1.0 = 79630) T4 (THYROXINE) (test code = 4.7 UG/DL 2819) CORRECTED T4 (FTI) (test code = 4.7 UG/DL 2820) TSH, THIRD GENERATION (test code 0.201 UIU/ML = 2821) HEMOGLOBIN [id number] 00:00:00 Test Item Value Reference Range Interpretation Comments HEMOGLOBIN A1c (test code = 24165) 6.7 % HEMOGLOBIN [id number] 00:00:00 Test Item Value Reference Range Interpretation Comments HEMOGLOBIN A1c (test code = 12005) 6.7 % HEMOGLOBIN [id number] 00:00:00 Test Item Value Reference Range Interpretation Comments HEMOGLOBIN A1c (test code = 17812) 6.7 % LIPID [id number] 00:00:00 Test Item Value Reference Range Interpretation Comments CHOLESTEROL (test code = 2210) 267 MG/DL TRIGLYCERIDES (test code = 2232) 137 MG/DL HDL CHOLESTEROL (test code = 2220) 48 MG/DL CALC LDL CHOL (test code = 2237) 192 MG/DL RISK RATIO LDL/HDL (test code = 4.00 RATIO 2238) LIPID [id number] 00:00:00 Test Item Value Reference Range Interpretation Comments CHOLESTEROL (test code = 2210) 267 MG/DL TRIGLYCERIDES (test code = 2232) 137 MG/DL HDL CHOLESTEROL (test code = 2220) 48 MG/DL CALC LDL CHOL (test code = 2237) 192 MG/DL RISK RATIO LDL/HDL (test code = 4.00 RATIO 2238) COMPREHENSIVE METABOLIC [id number] 00:00:00 Test Item Value Reference Range Interpretation Comments GLUCOSE (test code = 2217) 155 MG/DL BUN (test code = 2208) 14 MG/DL CREATININE (test code = 2214) 0.52 MG/DL eGFR AMER. (test code 122 ML/MIN/1.73 = 07885) eGFR NON- AMER. (test 105 ML/MIN/1.73 code = 99773) CALC BUN/CREAT (test code = 27 RATIO [...] code = 2219) 27 U/L COMPREHENSIVE METABOLIC [id number] 00:00:00 Test Item Value Reference Range Interpretation Comments GLUCOSE (test code = 2217) 155 MG/DL BUN (test code = 2208) 14 MG/DL CREATININE (test code = 2214) 0.52 MG/DL eGFR AMER. (test code 122 ML/MIN/1.73 = 87193) eGFR NON- AMER. (test 105 ML/MIN/1.73 code = 35038) CALC BUN/CREAT (test code = 27 RATIO [...] THYROX. BIND. CAPAC. (test code 1.0 = 41468) T4 (THYROXINE) (test code = 4.7 UG/DL 2819) CORRECTED T4 (FTI) (test code = 4.7 UG/DL 2820) TSH, THIRD GENERATION (test code 0.201 UIU/ML = 2821) THYROID II PROFILE (T3U, T4, T7, TSH)2019 00:00:00 Test Item Value Reference Range Interpretation Comments T-UPTAKE (test code = 2817) 33.1 % THYROX. BIND. CAPAC. (test code 1.0 = 52964) T4 (THYROXINE) (test code = 4.7 UG/DL 2819) CORRECTED T4 (FTI) (test code = 4.7 UG/DL 2820) TSH, THIRD GENERATION (test code 0.201 UIU/ML = 2821) SARS-CoV-2 (COVID-19) by RT-PCR (HIGH RISK)2019-09-18 00:00:00 Test Item Value Reference Range Interpretation Comments SARS-CoV-2 INTERPRETATION (test NEGATIVE code = 50799) SOURCE (test code = 03657) NOT SPECIFIED SARS-CoV-2 (COVID-19) by RT-PCR (HIGH RISK)2019-09-18 00:00:00 Test Item Value Reference Range Interpretation Comments SARS-CoV-2 INTERPRETATION (test NEGATIVE code = 90068) SOURCE (test code = 27598) NOT SPECIFIED SARS-CoV-2 (COVID-19) by RT-PCR (HIGH RISK)2019-09-18 00:00:00 Test Item Value Reference Range Interpretation Comments SARS-CoV-2 INTERPRETATION (test NEGATIVE code = 30707) SOURCE (test code = 74593) NOT SPECIFIED SARS-CoV-2 (COVID-19) by RT-PCR (HIGH RISK)2019-09-18 00:00:00 Test Item Value Reference Range Interpretation Comments SARS-CoV-2 INTERPRETATION (test NEGATIVE code = 22791) SOURCE (test code = 05799) NOT SPECIFIED SARS-CoV-2 (COVID-19) by RT-PCR (HIGH RISK)2019-09-18 00:00:00 Test Item Value Reference Range Interpretation Comments SARS-CoV-2 INTERPRETATION (test NEGATIVE code = 23582) SOURCE (test code = 62454) NOT SPECIFIED SARS-CoV-2 (COVID-19) by RT-PCR (HIGH RISK)2019-09-18 00:00:00 Test Item Value Reference Range Interpretation Comments SARS-CoV-2 INTERPRETATION (test NEGATIVE code = 64249) SOURCE (test code = 24996) NOT SPECIFIED SARS-CoV-2 (COVID-19) by RT-PCR (HIGH RISK)2019-09-18 00:00:00 Test Item Value Reference Range Interpretation Comments SARS-CoV-2 INTERPRETATION (test NEGATIVE code = 84165) SOURCE (test code = 20322) NOT SPECIFIED [id number] 00:00:00 Test Item Value Reference Range Interpretation Comments TSH, THIRD GENERATION (test code 2.490 UIU/ML = 2821) [id number] 00:00:00 Test Item Value Reference Range Interpretation Comments TSH, THIRD GENERATION (test code 2.490 UIU/ML = 2821) [id number] 00:00:00 Test Item Value Reference Range Interpretation Comments TSH, THIRD GENERATION (test code 2.490 UIU/ML = 2821) HEMOGLOBIN [id number] 00:00:00 Test Item Value Reference Range Interpretation Comments HEMOGLOBIN A1c (test code = 56579) 6.4 % HEMOGLOBIN [id number] 00:00:00 Test Item Value Reference Range Interpretation Comments HEMOGLOBIN A1c (test code = 81044) 6.4 % HEMOGLOBIN [id number] 00:00:00 Test Item Value Reference Range Interpretation Comments HEMOGLOBIN A1c (test code = 56858) 6.4 % COMPREHENSIVE METABOLIC [id number] 00:00:00 Test Item Value Reference Range Interpretation Comments GLUCOSE (test code = 2217) 206 MG/DL BUN (test code = 2208) 23 MG/DL CREATININE (test code = 2214) 0.67 MG/DL eGFR AMER. (test code 112 ML/MIN/1.73 = 30885) eGFR NON- AMER. (test 97 ML/MIN/1.73 code = 74831) CALC BUN/CREAT (test code = 34 RATIO [...] code = 2219) 25 U/L COMPREHENSIVE METABOLIC [id number] 00:00:00 Test Item Value Reference Range Interpretation Comments GLUCOSE (test code = 2217) 206 MG/DL BUN (test code = 2208) 23 MG/DL CREATININE (test code = 2214) 0.67 MG/DL eGFR AMER. (test code 112 ML/MIN/1.73 = 62174) eGFR NON- AMER. (test 97 ML/MIN/1.73 code = 29909) CALC BUN/CREAT (test code = 34 RATIO [...] ALT (test code = 2219) 25 U/L [id number] 00:00:00 Test Item Value Reference Range Interpretation Comments TSH, THIRD GENERATION (test code 2.490 UIU/ML = 2821) [id number] 00:00:00 Test Item Value Reference Range Interpretation Comments TSH, THIRD GENERATION (test code 2.490 UIU/ML = 2821) [id number] 00:00:00 Test Item Value Reference Range Interpretation Comments TSH, THIRD GENERATION (test code 2.490 UIU/ML = 2821) HEMOGLOBIN [id number] 00:00:00 Test Item Value Reference Range Interpretation Comments HEMOGLOBIN A1c (test code = 84278) 6.4 % HEMOGLOBIN [id number] 00:00:00 Test Item Value Reference Range Interpretation Comments HEMOGLOBIN A1c (test code = 75840) 6.4 % HEMOGLOBIN [id number] 00:00:00 Test Item Value Reference Range Interpretation Comments HEMOGLOBIN A1c (test code = 61146) 6.4 % COMPREHENSIVE METABOLIC [id number] 00:00:00 Test Item Value Reference Range Interpretation Comments GLUCOSE (test code = 2217) 206 MG/DL BUN (test code = 2208) 23 MG/DL CREATININE (test code = 2214) 0.67 MG/DL eGFR AMER. (test code 112 ML/MIN/1.73 = 37059) eGFR NON- AMER. (test 97 ML/MIN/1.73 code = 03709) CALC BUN/CREAT (test code = 34 RATIO [...] code = 2219) 25 U/L COMPREHENSIVE METABOLIC [id number] 00:00:00 Test Item Value Reference Range Interpretation Comments GLUCOSE (test code = 2217) 206 MG/DL BUN (test code = 2208) 23 MG/DL CREATININE (test code = 2214) 0.67 MG/DL eGFR AMER. (test code 112 ML/MIN/1.73 = 61445) eGFR NON- AMER. (test 97 ML/MIN/1.73 code = 95475) CALC BUN/CREAT (test code = 34 RATIO [...] ALT (test code = 2219) 25 U/L [id number] 00:00:00 Test Item Value Reference Range Interpretation Comments TSH, THIRD GENERATION (test code 2.490 UIU/ML = 2821) [id number] 00:00:00 Test Item Value Reference Range Interpretation Comments TSH, THIRD GENERATION (test code 2.490 UIU/ML = 2821) HEMOGLOBIN [id number] 00:00:00 Test Item Value Reference Range Interpretation Comments HEMOGLOBIN A1c (test code = 60140) 6.4 % HEMOGLOBIN [id number] 00:00:00 Test Item Value Reference Range Interpretation Comments HEMOGLOBIN A1c (test code = 91499) 6.4 % COMPREHENSIVE METABOLIC [id number] 00:00:00 Test Item Value Reference Range Interpretation Comments GLUCOSE (test code = 2217) 206 MG/DL BUN (test code = 2208) 23 MG/DL CREATININE (test code = 2214) 0.67 MG/DL eGFR AMER. (test code 112 ML/MIN/1.73 = 17966) eGFR NON- AMER. (test 97 ML/MIN/1.73 code = 20709) CALC BUN/CREAT (test code = 34 RATIO [...] ALT (test code = 2219) 25 U/L [id number] 00:00:00 Test Item Value Reference Range Interpretation Comments TSH, THIRD GENERATION (test code 2.490 UIU/ML = 2821) [id number] 00:00:00 Test Item Value Reference Range Interpretation Comments TSH, THIRD GENERATION (test code 2.490 UIU/ML = 2821) [id number] 00:00:00 Test Item Value Reference Range Interpretation Comments TSH, THIRD GENERATION (test code 2.490 UIU/ML = 2821) HEMOGLOBIN [id number] 00:00:00 Test Item Value Reference Range Interpretation Comments HEMOGLOBIN A1c (test code = 18132) 6.4 % HEMOGLOBIN [id number] 00:00:00 Test Item Value Reference Range Interpretation Comments HEMOGLOBIN A1c (test code = 01147) 6.4 % HEMOGLOBIN [id number] 00:00:00 Test Item Value Reference Range Interpretation Comments HEMOGLOBIN A1c (test code = 15499) 6.4 % COMPREHENSIVE METABOLIC [id number] 00:00:00 Test Item Value Reference Range Interpretation Comments GLUCOSE (test code = 2217) 206 MG/DL BUN (test code = 2208) 23 MG/DL CREATININE (test code = 2214) 0.67 MG/DL eGFR AMER. (test code 112 ML/MIN/1.73 = 19374) eGFR NON- AMER. (test 97 ML/MIN/1.73 code = 64818) CALC BUN/CREAT (test code = 34 RATIO [...] code = 2219) 25 U/L COMPREHENSIVE METABOLIC [id number] 00:00:00 Test Item Value Reference Range Interpretation Comments GLUCOSE (test code = 2217) 206 MG/DL BUN (test code = 2208) 23 MG/DL CREATININE (test code = 2214) 0.67 MG/DL eGFR AMER. (test code 112 ML/MIN/1.73 = 16584) eGFR NON- AMER. (test 97 ML/MIN/1.73 code = 15251) CALC BUN/CREAT (test code = 34 RATIO [...] = 2219) 25 U/L VAGINAL PATHOGENS DNA [id number] 00:00:00 Test Item Value Reference Range Interpretation Comments MARK SPECIES (test code = 38204) NEGATIVE G. VAGINALIS (test code = 92218) NEGATIVE T. VAGINALIS (test code = 14955) NEGATIVE VAGINAL PATHOGENS DNA [id number] 00:00:00 Test Item Value Reference Range Interpretation Comments MARK SPECIES (test code = 81993) NEGATIVE G. VAGINALIS (test code = 22771) NEGATIVE T. VAGINALIS (test code = 94412) NEGATIVE VAGINAL PATHOGENS DNA [id number] 00:00:00 Test Item Value Reference Range Interpretation Comments MARK SPECIES (test code = 95971) NEGATIVE G. VAGINALIS (test code = 35218) NEGATIVE T. VAGINALIS (test code = 12143) NEGATIVE VAGINAL PATHOGENS DNA [id number] 00:00:00 Test Item Value Reference Range Interpretation Comments MARK SPECIES (test code = 75849) NEGATIVE G. VAGINALIS (test code = 14892) NEGATIVE T. VAGINALIS (test code = 98538) NEGATIVE VAGINAL PATHOGENS DNA [id number] 00:00:00 Test Item Value Reference Range Interpretation Comments MARK SPECIES (test code = 22759) NEGATIVE G. VAGINALIS (test code = 78909) NEGATIVE T. VAGINALIS (test code = 04775) NEGATIVE VAGINAL PATHOGENS DNA [id number] 00:00:00 Test Item Value Reference Range Interpretation Comments MARK SPECIES (test code = ) NEGATIVE G. VAGINALIS (test code = 34979) NEGATIVE T. VAGINALIS (test code = 90779) NEGATIVE VAGINAL PATHOGENS DNA [id number] 00:00:00 Test Item Value Reference Range Interpretation Comments MARK SPECIES (test code = ) NEGATIVE G. VAGINALIS (test code = 68476) NEGATIVE T. VAGINALIS (test code = 01155) NEGATIVE HEMOGLOBIN A1c [ADDED]2018-12-01 00:00:00 Test Item Value Reference Range Interpretation Comments HEMOGLOBIN A1c (test code = 88591) 6.7 % HEMOGLOBIN A1c [ADDED]2018-12-01 00:00:00 Test Item Value Reference Range Interpretation Comments HEMOGLOBIN A1c (test code = 07554) 6.7 % HEMOGLOBIN A1c [ADDED]2018-12-01 00:00:00 Test Item Value Reference Range Interpretation Comments HEMOGLOBIN A1c (test code = 17661) 6.7 % COMPREHENSIVE METABOLIC PANEL [ADDED]2018-12-01 00:00:00 Test Item Value Reference Range Interpretation Comments GLUCOSE (test code = 2217) 136 MG/DL BUN (test code = 2208) 15 MG/DL CREATININE (test code = 2214) 0.64 MG/DL eGFR AMER. (test code 115 ML/MIN/1.73 = 77988) eGFR NON- AMER. (test 99 ML/MIN/1.73 code = 88162) CALC BUN/CREAT (test code = 23 RATIO [...] eGFR AMER. (test code 115 ML/MIN/1.73 = 29408) eGFR NON- AMER. (test 99 ML/MIN/1.73 code = 36853) CALC BUN/CREAT (test code = 23 RATIO [...] Interpretation Comments HEMOGLOBIN A1c (test code = 36980) 6.7 % HEMOGLOBIN A1c [ADDED]2018-12-01 00:00:00 Test Item Value Reference Range Interpretation Comments HEMOGLOBIN A1c (test code = 49844) 6.7 % HEMOGLOBIN A1c [ADDED]2018-12-01 00:00:00 Test Item Value Reference Range Interpretation Comments HEMOGLOBIN A1c (test code = 81353) 6.7 % COMPREHENSIVE METABOLIC PANEL [ADDED]2018-12-01 00:00:00 Test Item Value Reference Range Interpretation Comments GLUCOSE (test code = 2217) 136 MG/DL BUN (test code = 2208) 15 MG/DL CREATININE (test code = 2214) 0.64 MG/DL eGFR AMER. (test code 115 ML/MIN/1.73 = 40277) eGFR NON- AMER. (test 99 ML/MIN/1.73 code = 01673) CALC BUN/CREAT (test code = 23 RATIO [...] eGFR AMER. (test code 115 ML/MIN/1.73 = 74298) eGFR NON- AMER. (test 99 ML/MIN/1.73 code = 54339) CALC BUN/CREAT (test code = 23 RATIO [...] Interpretation Comments HEMOGLOBIN A1c (test code = 53403) 6.7 % HEMOGLOBIN A1c [ADDED]2018-12-01 00:00:00 Test Item Value Reference Range Interpretation Comments HEMOGLOBIN A1c (test code = 99713) 6.7 % COMPREHENSIVE METABOLIC PANEL [ADDED]2018-12-01 00:00:00 Test Item Value Reference Range Interpretation Comments GLUCOSE (test code = 2217) 136 MG/DL BUN (test code = 2208) 15 MG/DL CREATININE (test code = 2214) 0.64 MG/DL eGFR AMER. (test code 115 ML/MIN/1.73 = 37223) eGFR NON- AMER. (test 99 ML/MIN/1.73 code = 99061) CALC BUN/CREAT (test code = 23 RATIO [...] Interpretation Comments HEMOGLOBIN A1c (test code = 84028) 6.7 % HEMOGLOBIN A1c [ADDED]2018-12-01 00:00:00 Test Item Value Reference Range Interpretation Comments HEMOGLOBIN A1c (test code = 46169) 6.7 % HEMOGLOBIN A1c [ADDED]2018-12-01 00:00:00 Test Item Value Reference Range Interpretation Comments HEMOGLOBIN A1c (test code = 59922) 6.7 % COMPREHENSIVE METABOLIC PANEL [ADDED]2018-12-01 00:00:00 Test Item Value Reference Range Interpretation Comments GLUCOSE (test code = 2217) 136 MG/DL BUN (test code = 2208) 15 MG/DL CREATININE (test code = 2214) 0.64 MG/DL eGFR AMER. (test code 115 ML/MIN/1.73 = 68827) eGFR NON- AMER. (test 99 ML/MIN/1.73 code = 97349) CALC BUN/CREAT (test code = 23 RATIO [...] eGFR AMER. (test code 115 ML/MIN/1.73 = 87124) eGFR NON- AMER. (test 99 ML/MIN/1.73 code = 42598) CALC BUN/CREAT (test code = 23 RATIO [...] code 1.280 UIU/ML = 2821) CBC W/AUTO [id number] 00:00:00 Test Item Value Reference Range Interpretation [...] code = 1015) 346 K/UL CBC W/AUTO [id number] 00:00:00 Test Item Value Reference Range Interpretation [...] code = 1015) 346 K/UL CBC W/AUTO [id number] 00:00:00 Test Item Value Reference Range Interpretation [...] (test code = 1015) 346 K/UL HEMOGLOBIN [id number] 00:00:00 Test Item Value Reference Range Interpretation Comments HEMOGLOBIN A1c (test code = 74525) 5.9 % HEMOGLOBIN [id number] 00:00:00 Test Item Value Reference Range Interpretation Comments HEMOGLOBIN A1c (test code = 82666) 5.9 % HEMOGLOBIN [id number] 00:00:00 Test Item Value Reference Range Interpretation Comments HEMOGLOBIN A1c (test code = 61476) 5.9 % LIPID [id number] 00:00:00 Test Item Value Reference Range Interpretation Comments CHOLESTEROL (test code = 2210) 318 MG/DL TRIGLYCERIDES (test code = 2232) 263 MG/DL HDL CHOLESTEROL (test code = 2220) 51 MG/DL CALC LDL CHOL (test code = 2237) 214 MG/DL RISK RATIO LDL/HDL (test code = 4.20 RATIO 2238) LIPID [id number] 00:00:00 Test Item Value Reference Range Interpretation Comments CHOLESTEROL (test code = 2210) 318 MG/DL TRIGLYCERIDES (test code = 2232) 263 MG/DL HDL CHOLESTEROL (test code = 2220) 51 MG/DL CALC LDL CHOL (test code = 2237) 214 MG/DL RISK RATIO LDL/HDL (test code = 4.20 RATIO 2238) COMPREHENSIVE METABOLIC [id number] 00:00:00 Test Item Value Reference Range Interpretation Comments GLUCOSE (test code = 2217) 113 MG/DL BUN (test code = 2208) 18 MG/DL CREATININE (test code = 2214) 0.70 MG/DL eGFR AMER. (test code 111 ML/MIN/1.73 = 29585) eGFR NON- AMER. (test 96 ML/MIN/1.73 code = 74370) CALC BUN/CREAT (test code = 26 RATIO [...] code = 2219) 31 U/L COMPREHENSIVE METABOLIC [id number] 00:00:00 Test Item Value Reference Range Interpretation Comments GLUCOSE (test code = 2217) 113 MG/DL BUN (test code = 2208) 18 MG/DL CREATININE (test code = 2214) 0.70 MG/DL eGFR AMER. (test code 111 ML/MIN/1.73 = 37484) eGFR NON- AMER. (test 96 ML/MIN/1.73 code = 45247) CALC BUN/CREAT (test code = 26 RATIO [...] ALT (test code = 2219) 31 U/L [id number] 00:00:00 Test Item Value Reference Range Interpretation Comments TSH, THIRD GENERATION (test code 2.520 UIU/ML = 2821) [id number] 00:00:00 Test Item Value Reference Range Interpretation Comments TSH, THIRD GENERATION (test code 2.520 UIU/ML = 2821) [id number] 00:00:00 Test Item Value Reference Range Interpretation Comments TSH, THIRD GENERATION (test code 2.520 UIU/ML = 2821) CBC W/AUTO [id number] 00:00:00 Test Item Value Reference Range Interpretation [...] code = 1015) 346 K/UL CBC W/AUTO [id number] 00:00:00 Test Item Value Reference Range Interpretation [...] code = 1015) 346 K/UL CBC W/AUTO [id number] 00:00:00 Test Item Value Reference Range Interpretation [...] (test code = 1015) 346 K/UL HEMOGLOBIN [id number] 00:00:00 Test Item Value Reference Range Interpretation Comments HEMOGLOBIN A1c (test code = 07654) 5.9 % HEMOGLOBIN [id number] 00:00:00 Test Item Value Reference Range Interpretation Comments HEMOGLOBIN A1c (test code = 16221) 5.9 % HEMOGLOBIN [id number] 00:00:00 Test Item Value Reference Range Interpretation Comments HEMOGLOBIN A1c (test code = 45751) 5.9 % LIPID [id number] 00:00:00 Test Item Value Reference Range Interpretation Comments CHOLESTEROL (test code = 2210) 318 MG/DL TRIGLYCERIDES (test code = 2232) 263 MG/DL HDL CHOLESTEROL (test code = 2220) 51 MG/DL CALC LDL CHOL (test code = 2237) 214 MG/DL RISK RATIO LDL/HDL (test code = 4.20 RATIO 2238) LIPID [id number] 00:00:00 Test Item Value Reference Range Interpretation Comments CHOLESTEROL (test code = 2210) 318 MG/DL TRIGLYCERIDES (test code = 2232) 263 MG/DL HDL CHOLESTEROL (test code = 2220) 51 MG/DL CALC LDL CHOL (test code = 2237) 214 MG/DL RISK RATIO LDL/HDL (test code = 4.20 RATIO 2238) COMPREHENSIVE METABOLIC [id number] 00:00:00 Test Item Value Reference Range Interpretation Comments GLUCOSE (test code = 2217) 113 MG/DL BUN (test code = 2208) 18 MG/DL CREATININE (test code = 2214) 0.70 MG/DL eGFR AMER. (test code 111 ML/MIN/1.73 = 49320) eGFR NON- AMER. (test 96 ML/MIN/1.73 code = 55759) CALC BUN/CREAT (test code = 26 RATIO [...] code = 2219) 31 U/L COMPREHENSIVE METABOLIC [id number] 00:00:00 Test Item Value Reference Range Interpretation Comments GLUCOSE (test code = 2217) 113 MG/DL BUN (test code = 2208) 18 MG/DL CREATININE (test code = 2214) 0.70 MG/DL eGFR AMER. (test code 111 ML/MIN/1.73 = 66640) eGFR NON- AMER. (test 96 ML/MIN/1.73 code = 42229) CALC BUN/CREAT (test code = 26 RATIO [...] ALT (test code = 2219) 31 U/L [id number] 00:00:00 Test Item Value Reference Range Interpretation Comments TSH, THIRD GENERATION (test code 2.520 UIU/ML = 2821) [id number] 00:00:00 Test Item Value Reference Range Interpretation Comments TSH, THIRD GENERATION (test code 2.520 UIU/ML = 2821) [id number] 00:00:00 Test Item Value Reference Range Interpretation Comments TSH, THIRD GENERATION (test code 2.520 UIU/ML = 2821) CBC W/AUTO [id number] 00:00:00 Test Item Value Reference Range Interpretation [...] code = 1015) 346 K/UL CBC W/AUTO [id number] 00:00:00 Test Item Value Reference Range Interpretation [...] (test code = 1015) 346 K/UL HEMOGLOBIN [id number] 00:00:00 Test Item Value Reference Range Interpretation Comments HEMOGLOBIN A1c (test code = 84300) 5.9 % HEMOGLOBIN [id number] 00:00:00 Test Item Value Reference Range Interpretation Comments HEMOGLOBIN A1c (test code = 64435) 5.9 % LIPID [id number] 00:00:00 Test Item Value Reference Range Interpretation Comments CHOLESTEROL (test code = 2210) 318 MG/DL TRIGLYCERIDES (test code = 2232) 263 MG/DL HDL CHOLESTEROL (test code = 2220) 51 MG/DL CALC LDL CHOL (test code = 2237) 214 MG/DL RISK RATIO LDL/HDL (test code = 4.20 RATIO 2238) COMPREHENSIVE METABOLIC [id number] 00:00:00 Test Item Value Reference Range Interpretation Comments GLUCOSE (test code = 2217) 113 MG/DL BUN (test code = 2208) 18 MG/DL CREATININE (test code = 2214) 0.70 MG/DL eGFR AMER. (test code 111 ML/MIN/1.73 = 08687) eGFR NON- AMER. (test 96 ML/MIN/1.73 code = 30796) CALC BUN/CREAT (test code = 26 RATIO [...] ALT (test code = 2219) 31 U/L [id number] 00:00:00 Test Item Value Reference Range Interpretation Comments TSH, THIRD GENERATION (test code 2.520 UIU/ML = 2821) [id number] 00:00:00 Test Item Value Reference Range Interpretation Comments TSH, THIRD GENERATION (test code 2.520 UIU/ML = 2821) CBC W/AUTO [id number] 00:00:00 Test Item Value Reference Range Interpretation [...] code = 1015) 346 K/UL CBC W/AUTO [id number] 00:00:00 Test Item Value Reference Range Interpretation [...] code = 1015) 346 K/UL CBC W/AUTO [id number] 00:00:00 Test Item Value Reference Range Interpretation [...] (test code = 1015) 346 K/UL HEMOGLOBIN [id number] 00:00:00 Test Item Value Reference Range Interpretation Comments HEMOGLOBIN A1c (test code = 86028) 5.9 % HEMOGLOBIN [id number] 00:00:00 Test Item Value Reference Range Interpretation Comments HEMOGLOBIN A1c (test code = 52019) 5.9 % HEMOGLOBIN [id number] 00:00:00 Test Item Value Reference Range Interpretation Comments HEMOGLOBIN A1c (test code = 16721) 5.9 % LIPID [id number] 00:00:00 Test Item Value Reference Range Interpretation Comments CHOLESTEROL (test code = 2210) 318 MG/DL TRIGLYCERIDES (test code = 2232) 263 MG/DL HDL CHOLESTEROL (test code = 2220) 51 MG/DL CALC LDL CHOL (test code = 2237) 214 MG/DL RISK RATIO LDL/HDL (test code = 4.20 RATIO 2238) LIPID [id number] 00:00:00 Test Item Value Reference Range Interpretation Comments CHOLESTEROL (test code = 2210) 318 MG/DL TRIGLYCERIDES (test code = 2232) 263 MG/DL HDL CHOLESTEROL (test code = 2220) 51 MG/DL CALC LDL CHOL (test code = 2237) 214 MG/DL RISK RATIO LDL/HDL (test code = 4.20 RATIO 2238) COMPREHENSIVE METABOLIC [id number] 00:00:00 Test Item Value Reference Range Interpretation Comments GLUCOSE (test code = 2217) 113 MG/DL BUN (test code = 2208) 18 MG/DL CREATININE (test code = 2214) 0.70 MG/DL eGFR AMER. (test code 111 ML/MIN/1.73 = 95145) eGFR NON- AMER. (test 96 ML/MIN/1.73 code = 85600) CALC BUN/CREAT (test code = 26 RATIO [...] code = 2219) 31 U/L COMPREHENSIVE METABOLIC [id number] 00:00:00 Test Item Value Reference Range Interpretation Comments GLUCOSE (test code = 2217) 113 MG/DL BUN (test code = 2208) 18 MG/DL CREATININE (test code = 2214) 0.70 MG/DL eGFR AMER. (test code 111 ML/MIN/1.73 = 81376) eGFR NON- AMER. (test 96 ML/MIN/1.73 code = 55295) CALC BUN/CREAT (test code = 26 RATIO [...] ALT (test code = 2219) 31 U/L [id number] 00:00:00 Test Item Value Reference Range Interpretation Comments TSH, THIRD GENERATION (test code 2.520 UIU/ML = 2821) [id number] 00:00:00 Test Item Value Reference Range Interpretation Comments TSH, THIRD GENERATION (test code 2.520 UIU/ML = 2821) [id number] 00:00:00 Test Item Value Reference Range Interpretation Comments TSH, THIRD GENERATION (test code 2.520 UIU/ML = 2821) CULTURE, [id number] 00:00:00 Test Item Value Reference Range Interpretation Comments CULTURE, URINE (test SPECIMEN NUMBER: code = 48958) [id number] CULTURE, [id number] 00:00:00 Test Item Value Reference Range Interpretation Comments CULTURE, URINE (test SPECIMEN NUMBER: code = 17294) [id number] CULTURE, [id number] 00:00:00 Test Item Value Reference Range Interpretation Comments CULTURE, URINE (test SPECIMEN NUMBER: code = 39646) [id number] CULTURE, [id number] 00:00:00 Test Item Value Reference Range Interpretation Comments CULTURE, URINE (test SPECIMEN NUMBER: code = 82000) [id number] CULTURE, [id number] 00:00:00 Test Item Value Reference Range Interpretation Comments CULTURE, URINE (test SPECIMEN NUMBER: code = 51147) [id number] CULTURE, [id number] 00:00:00 Test Item Value Reference Range Interpretation Comments CULTURE, URINE (test SPECIMEN NUMBER: code = 61557) [id number] CULTURE, [id number] 00:00:00 Test Item Value Reference Range Interpretation Comments CULTURE, URINE (test SPECIMEN NUMBER: code = 76781) [id number] CULTURE, [id number] 00:00:00 Test Item Value Reference Range Interpretation Comments CULTURE, URINE (test SPECIMEN NUMBER: code = 96501) [id number] CULTURE, [id number] 00:00:00 Test Item Value Reference Range Interpretation Comments CULTURE, URINE (test SPECIMEN NUMBER: code = 02474) [id number] CULTURE, [id number] 00:00:00 Test Item Value Reference Range Interpretation Comments CULTURE, URINE (test SPECIMEN NUMBER: code = 93064) [id number] CULTURE, [id number] 00:00:00 Test Item Value Reference Range Interpretation Comments CULTURE, URINE (test SPECIMEN NUMBER: code = 74140) [id number] CULTURE, [id number] 00:00:00 Test Item Value Reference Range Interpretation Comments CULTURE, URINE (test SPECIMEN NUMBER: code = 24462) [id number] CULTURE, [id number] 00:00:00 Test Item Value Reference Range Interpretation Comments CULTURE, URINE (test SPECIMEN NUMBER: code = 16760) [id number] CULTURE, [id number] 00:00:00 Test Item Value Reference Range Interpretation Comments CULTURE, URINE (test SPECIMEN NUMBER: code = 85013) [id number] BASIC METABOLIC [id number] 00:00:00 Test Item Value Reference Range Interpretation Comments GLUCOSE (test code = 2217) 135 MG/DL BUN (test code = 2208) 25 MG/DL CREATININE (test code = 2214) 0.76 MG/DL eGFR AMER. (test code 101 ML/MIN/1.73 = 27042) eGFR NON- AMER. (test 87 ML/MIN/1.73 code = 02441) SODIUM (test code = 2231) 139 MEQ/L POTASSIUM (test code = 2228) 4.7 MEQ/L CHLORIDE (test code = 2215) 99 MEQ/L CARBON DIOXIDE (test code = 26 MEQ/L 2206) CALCIUM (test code = 2209) 9.4 MG/DL BASIC METABOLIC [id number] 00:00:00 Test Item Value Reference Range Interpretation Comments GLUCOSE (test code = 2217) 135 MG/DL BUN (test code = 2208) 25 MG/DL CREATININE (test code = 2214) 0.76 MG/DL eGFR AMER. (test code 101 ML/MIN/1.73 = 22362) eGFR NON- AMER. (test 87 ML/MIN/1.73 code = 99150) SODIUM (test code = 2231) 139 MEQ/L POTASSIUM (test code = 2228) 4.7 MEQ/L CHLORIDE (test code = 2215) 99 MEQ/L CARBON DIOXIDE (test code = 26 MEQ/L 2206) CALCIUM (test code = 2209) 9.4 MG/DL LIPID [id number] 00:00:00 Test Item Value Reference Range Interpretation Comments CHOLESTEROL (test code = 2210) 262 MG/DL TRIGLYCERIDES (test code = 2232) 300 MG/DL HDL CHOLESTEROL (test code = 2220) 36 MG/DL CALC LDL CHOL (test code = 2237) 166 MG/DL RISK RATIO LDL/HDL (test code = 4.61 RATIO 2238) LIPID [id number] 00:00:00 Test Item Value Reference Range Interpretation Comments CHOLESTEROL (test code = 2210) 262 MG/DL TRIGLYCERIDES (test code = 2232) 300 MG/DL HDL CHOLESTEROL (test code = 2220) 36 MG/DL CALC LDL CHOL (test code = 2237) 166 MG/DL RISK RATIO LDL/HDL (test code = 4.61 RATIO 2238) HEMOGLOBIN [id number] 00:00:00 Test Item Value Reference Range Interpretation Comments HEMOGLOBIN A1c (test code = 23752) 6.2 % HEMOGLOBIN [id number] 00:00:00 Test Item Value Reference Range Interpretation Comments HEMOGLOBIN A1c (test code = 99787) 6.2 % HEMOGLOBIN [id number] 00:00:00 Test Item Value Reference Range Interpretation Comments HEMOGLOBIN A1c (test code = 33400) 6.2 % [id number] 00:00:00 Test Item Value Reference Range Interpretation Comments TSH, THIRD GENERATION (test code 0.988 UIU/ML = 2821) [id number] 00:00:00 Test Item Value Reference Range Interpretation Comments TSH, THIRD GENERATION (test code 0.988 UIU/ML = 2821) [id number] 00:00:00 Test Item Value Reference Range Interpretation Comments TSH, THIRD GENERATION (test code 0.988 UIU/ML = 2821) BASIC METABOLIC [id number] 00:00:00 Test Item Value Reference Range Interpretation Comments GLUCOSE (test code = 2217) 135 MG/DL BUN (test code = 2208) 25 MG/DL CREATININE (test code = 2214) 0.76 MG/DL eGFR AMER. (test code 101 ML/MIN/1.73 = 93605) eGFR NON- AMER. (test 87 ML/MIN/1.73 code = 74588) SODIUM (test code = 2231) 139 MEQ/L POTASSIUM (test code = 2228) 4.7 MEQ/L CHLORIDE (test code = 2215) 99 MEQ/L CARBON DIOXIDE (test code = 26 MEQ/L 2206) CALCIUM (test code = 2209) 9.4 MG/DL BASIC METABOLIC [id number] 00:00:00 Test Item Value Reference Range Interpretation Comments GLUCOSE (test code = 2217) 135 MG/DL BUN (test code = 2208) 25 MG/DL CREATININE (test code = 2214) 0.76 MG/DL eGFR AMER. (test code 101 ML/MIN/1.73 = 38668) eGFR NON- AMER. (test 87 ML/MIN/1.73 code = 91309) SODIUM (test code = 2231) 139 MEQ/L POTASSIUM (test code = 2228) 4.7 MEQ/L CHLORIDE (test code = 2215) 99 MEQ/L CARBON DIOXIDE (test code = 26 MEQ/L 2206) CALCIUM (test code = 2209) 9.4 MG/DL LIPID [id number] 00:00:00 Test Item Value Reference Range Interpretation Comments CHOLESTEROL (test code = 2210) 262 MG/DL TRIGLYCERIDES (test code = 2232) 300 MG/DL HDL CHOLESTEROL (test code = 2220) 36 MG/DL CALC LDL CHOL (test code = 2237) 166 MG/DL RISK RATIO LDL/HDL (test code = 4.61 RATIO 2238) LIPID [id number] 00:00:00 Test Item Value Reference Range Interpretation Comments CHOLESTEROL (test code = 2210) 262 MG/DL TRIGLYCERIDES (test code = 2232) 300 MG/DL HDL CHOLESTEROL (test code = 2220) 36 MG/DL CALC LDL CHOL (test code = 2237) 166 MG/DL RISK RATIO LDL/HDL (test code = 4.61 RATIO 2238) HEMOGLOBIN [id number] 00:00:00 Test Item Value Reference Range Interpretation Comments HEMOGLOBIN A1c (test code = 67416) 6.2 % HEMOGLOBIN [id number] 00:00:00 Test Item Value Reference Range Interpretation Comments HEMOGLOBIN A1c (test code = 59083) 6.2 % HEMOGLOBIN [id number] 00:00:00 Test Item Value Reference Range Interpretation Comments HEMOGLOBIN A1c (test code = 59171) 6.2 % [id number] 00:00:00 Test Item Value Reference Range Interpretation Comments TSH, THIRD GENERATION (test code 0.988 UIU/ML = 2821) [id number] 00:00:00 Test Item Value Reference Range Interpretation Comments TSH, THIRD GENERATION (test code 0.988 UIU/ML = 2821) [id number] 00:00:00 Test Item Value Reference Range Interpretation Comments TSH, THIRD GENERATION (test code 0.988 UIU/ML = 2821) BASIC METABOLIC [id number] 00:00:00 Test Item Value Reference Range Interpretation Comments GLUCOSE (test code = 2217) 135 MG/DL BUN (test code = 2208) 25 MG/DL CREATININE (test code = 2214) 0.76 MG/DL eGFR AMER. (test code 101 ML/MIN/1.73 = 92427) eGFR NON- AMER. (test 87 ML/MIN/1.73 code = 96628) SODIUM (test code = 2231) 139 MEQ/L POTASSIUM (test code = 2228) 4.7 MEQ/L CHLORIDE (test code = 2215) 99 MEQ/L CARBON DIOXIDE (test code = 26 MEQ/L 2206) CALCIUM (test code = 2209) 9.4 MG/DL LIPID [id number] 00:00:00 Test Item Value Reference Range Interpretation Comments CHOLESTEROL (test code = 2210) 262 MG/DL TRIGLYCERIDES (test code = 2232) 300 MG/DL HDL CHOLESTEROL (test code = 2220) 36 MG/DL CALC LDL CHOL (test code = 2237) 166 MG/DL RISK RATIO LDL/HDL (test code = 4.61 RATIO 2238) HEMOGLOBIN [id number] 00:00:00 Test Item Value Reference Range Interpretation Comments HEMOGLOBIN A1c (test code = 89622) 6.2 % HEMOGLOBIN [id number] 00:00:00 Test Item Value Reference Range Interpretation Comments HEMOGLOBIN A1c (test code = 54801) 6.2 % [id number] 00:00:00 Test Item Value Reference Range Interpretation Comments TSH, THIRD GENERATION (test code 0.988 UIU/ML = 2821) [id number] 00:00:00 Test Item Value Reference Range Interpretation Comments TSH, THIRD GENERATION (test code 0.988 UIU/ML = 2821) BASIC METABOLIC [id number] 00:00:00 Test Item Value Reference Range Interpretation Comments GLUCOSE (test code = 2217) 135 MG/DL BUN (test code = 2208) 25 MG/DL CREATININE (test code = 2214) 0.76 MG/DL eGFR AMER. (test code 101 ML/MIN/1.73 = 14084) eGFR NON- AMER. (test 87 ML/MIN/1.73 code = 29821) SODIUM (test code = 2231) 139 MEQ/L POTASSIUM (test code = 2228) 4.7 MEQ/L CHLORIDE (test code = 2215) 99 MEQ/L CARBON DIOXIDE (test code = 26 MEQ/L 2206) CALCIUM (test code = 2209) 9.4 MG/DL BASIC METABOLIC [id number] 00:00:00 Test Item Value Reference Range Interpretation Comments GLUCOSE (test code = 2217) 135 MG/DL BUN (test code = 2208) 25 MG/DL CREATININE (test code = 2214) 0.76 MG/DL eGFR AMER. (test code 101 ML/MIN/1.73 = 98325) eGFR NON- AMER. (test 87 ML/MIN/1.73 code = 09305) SODIUM (test code = 2231) 139 MEQ/L POTASSIUM (test code = 2228) 4.7 MEQ/L CHLORIDE (test code = 2215) 99 MEQ/L CARBON DIOXIDE (test code = 26 MEQ/L 2206) CALCIUM (test code = 2209) 9.4 MG/DL LIPID [id number] 00:00:00 Test Item Value Reference Range Interpretation Comments CHOLESTEROL (test code = 2210) 262 MG/DL TRIGLYCERIDES (test code = 2232) 300 MG/DL HDL CHOLESTEROL (test code = 2220) 36 MG/DL CALC LDL CHOL (test code = 2237) 166 MG/DL RISK RATIO LDL/HDL (test code = 4.61 RATIO 2238) LIPID [id number] 00:00:00 Test Item Value Reference Range Interpretation Comments CHOLESTEROL (test code = 2210) 262 MG/DL TRIGLYCERIDES (test code = 2232) 300 MG/DL HDL CHOLESTEROL (test code = 2220) 36 MG/DL CALC LDL CHOL (test code = 2237) 166 MG/DL RISK RATIO LDL/HDL (test code = 4.61 RATIO 2238) HEMOGLOBIN [id number] 00:00:00 Test Item Value Reference Range Interpretation Comments HEMOGLOBIN A1c (test code = 30746) 6.2 % HEMOGLOBIN [id number] 00:00:00 Test Item Value Reference Range Interpretation Comments HEMOGLOBIN A1c (test code = 38340) 6.2 % HEMOGLOBIN [id number] 00:00:00 Test Item Value Reference Range Interpretation Comments HEMOGLOBIN A1c (test code = 44982) 6.2 % [id number] 00:00:00 Test Item Value Reference Range Interpretation Comments TSH, THIRD GENERATION (test code 0.988 UIU/ML = 2821) [id number] 00:00:00 Test Item Value Reference Range Interpretation Comments TSH, THIRD GENERATION (test code 0.988 UIU/ML = 2821) [id number] 00:00:00 Test Item Value Reference Range Interpretation Comments TSH, THIRD GENERATION (test code 0.988 UIU/ML = 2821) COMPREHENSIVE METABOLIC [id number] 00:00:00 Test Item Value Reference Range Interpretation Comments GLUCOSE (test code = 2217) 109 MG/DL BUN (test code = 2208) 25 MG/DL CREATININE (test code = 2214) 0.78 MG/DL eGFR AMER. (test code 98 ML/MIN/1.73 = 07366) eGFR NON- AMER. (test 84 ML/MIN/1.73 code = 76173) CALC BUN/CREAT (test code = 32 RATIO [...] code = 2219) 25 U/L COMPREHENSIVE METABOLIC [id number] 00:00:00 Test Item Value Reference Range Interpretation Comments GLUCOSE (test code = 2217) 109 MG/DL BUN (test code = 2208) 25 MG/DL CREATININE (test code = 2214) 0.78 MG/DL eGFR AMER. (test code 98 ML/MIN/1.73 = 11913) eGFR NON- AMER. (test 84 ML/MIN/1.73 code = 49422) CALC BUN/CREAT (test code = 32 RATIO [...] (test code = 2219) 25 U/L LIPID [id number] 00:00:00 Test Item Value Reference Range Interpretation Comments CHOLESTEROL (test code = 2210) 295 MG/DL TRIGLYCERIDES (test code = 2232) 218 MG/DL HDL CHOLESTEROL (test code = 2220) 46 MG/DL CALC LDL CHOL (test code = 2237) 205 MG/DL RISK RATIO LDL/HDL (test code = 4.47 RATIO 2238) LIPID [id number] 00:00:00 Test Item Value Reference Range Interpretation Comments CHOLESTEROL (test code = 2210) 295 MG/DL TRIGLYCERIDES (test code = 2232) 218 MG/DL HDL CHOLESTEROL (test code = 2220) 46 MG/DL CALC LDL CHOL (test code = 2237) 205 MG/DL RISK RATIO LDL/HDL (test code = 4.47 RATIO 2238) HEMOGLOBIN [id number] 00:00:00 Test Item Value Reference Range Interpretation Comments HEMOGLOBIN A1c (test code = 03715) 7.0 % HEMOGLOBIN [id number] 00:00:00 Test Item Value Reference Range Interpretation Comments HEMOGLOBIN A1c (test code = 30155) 7.0 % HEMOGLOBIN [id number] 00:00:00 Test Item Value Reference Range Interpretation Comments HEMOGLOBIN A1c (test code = 85834) 7.0 % [id number] 00:00:00 Test Item Value Reference Range Interpretation Comments TSH, THIRD GENERATION (test code 0.565 UIU/ML = 2821) [id number] 00:00:00 Test Item Value Reference Range Interpretation Comments TSH, THIRD GENERATION (test code 0.565 UIU/ML = 2821) [id number] 00:00:00 Test Item Value Reference Range Interpretation Comments TSH, THIRD GENERATION (test code 0.565 UIU/ML = 2821) COMPREHENSIVE METABOLIC [id number] 00:00:00 Test Item Value Reference Range Interpretation Comments GLUCOSE (test code = 2217) 109 MG/DL BUN (test code = 2208) 25 MG/DL CREATININE (test code = 2214) 0.78 MG/DL eGFR AMER. (test code 98 ML/MIN/1.73 = 65016) eGFR NON- AMER. (test 84 ML/MIN/1.73 code = 48812) CALC BUN/CREAT (test code = 32 RATIO 2234) SODIUM (test code = 2231) 139 MEQ/L [...] code = 2219) 25 U/L COMPREHENSIVE METABOLIC [id number] 00:00:00 Test Item Value Reference Range Interpretation Comments GLUCOSE (test code = 2217) 109 MG/DL BUN (test code = 2208) 25 MG/DL CREATININE (test code = 2214) 0.78 MG/DL eGFR AMER. (test code 98 ML/MIN/1.73 = 20416) eGFR NON- AMER. (test 84 ML/MIN/1.73 code = 73937) CALC BUN/CREAT (test code = 32 RATIO [...] (test code = 2219) 25 U/L LIPID [id number] 00:00:00 Test Item Value Reference Range Interpretation Comments CHOLESTEROL (test code = 2210) 295 MG/DL TRIGLYCERIDES (test code = 2232) 218 MG/DL HDL CHOLESTEROL (test code = 2220) 46 MG/DL CALC LDL CHOL (test code = 2237) 205 MG/DL RISK RATIO LDL/HDL (test code = 4.47 RATIO 2238) LIPID [id number] 00:00:00 Test Item Value Reference Range Interpretation Comments CHOLESTEROL (test code = 2210) 295 MG/DL TRIGLYCERIDES (test code = 2232) 218 MG/DL HDL CHOLESTEROL (test code = 2220) 46 MG/DL CALC LDL CHOL (test code = 2237) 205 MG/DL RISK RATIO LDL/HDL (test code = 4.47 RATIO 2238) HEMOGLOBIN [id number] 00:00:00 Test Item Value Reference Range Interpretation Comments HEMOGLOBIN A1c (test code = 87752) 7.0 % HEMOGLOBIN [id number] 00:00:00 Test Item Value Reference Range Interpretation Comments HEMOGLOBIN A1c (test code = 39113) 7.0 % HEMOGLOBIN [id number] 00:00:00 Test Item Value Reference Range Interpretation Comments HEMOGLOBIN A1c (test code = 71668) 7.0 % [id number] 00:00:00 Test Item Value Reference Range Interpretation Comments TSH, THIRD GENERATION (test code 0.565 UIU/ML = 2821) [id number] 00:00:00 Test Item Value Reference Range Interpretation Comments TSH, THIRD GENERATION (test code 0.565 UIU/ML = 2821) [id number] 00:00:00 Test Item Value Reference Range Interpretation Comments TSH, THIRD GENERATION (test code 0.565 UIU/ML = 2821) COMPREHENSIVE METABOLIC [id number] 00:00:00 Test Item Value Reference Range Interpretation Comments GLUCOSE (test code = 2217) 109 MG/DL BUN (test code = 2208) 25 MG/DL CREATININE (test code = 2214) 0.78 MG/DL eGFR AMER. (test code 98 ML/MIN/1.73 = 25414) eGFR NON- AMER. (test 84 ML/MIN/1.73 code = 41470) CALC BUN/CREAT (test code = 32 RATIO [...] (test code = 2219) 25 U/L LIPID [id number] 00:00:00 Test Item Value Reference Range Interpretation Comments CHOLESTEROL (test code = 2210) 295 MG/DL TRIGLYCERIDES (test code = 2232) 218 MG/DL HDL CHOLESTEROL (test code = 2220) 46 MG/DL CALC LDL CHOL (test code = 2237) 205 MG/DL RISK RATIO LDL/HDL (test code = 4.47 RATIO 2238) HEMOGLOBIN [id number] 00:00:00 Test Item Value Reference Range Interpretation Comments HEMOGLOBIN A1c (test code = 99085) 7.0 % HEMOGLOBIN [id number] 00:00:00 Test Item Value Reference Range Interpretation Comments HEMOGLOBIN A1c (test code = 85730) 7.0 % [id number] 00:00:00 Test Item Value Reference Range Interpretation Comments TSH, THIRD GENERATION (test code 0.565 UIU/ML = 2821) [id number] 00:00:00 Test Item Value Reference Range Interpretation Comments TSH, THIRD GENERATION (test code 0.565 UIU/ML = 2821) COMPREHENSIVE METABOLIC [id number] 00:00:00 Test Item Value Reference Range Interpretation Comments GLUCOSE (test code = 2217) 109 MG/DL BUN (test code = 2208) 25 MG/DL CREATININE (test code = 2214) 0.78 MG/DL eGFR AMER. (test code 98 ML/MIN/1.73 = 81442) eGFR NON- AMER. (test 84 ML/MIN/1.73 code = 64449) CALC BUN/CREAT (test code = 32 RATIO 2234) SODIUM (test code = 2231) 139 MEQ/L [...] code = 2219) 25 U/L COMPREHENSIVE METABOLIC [id number] 00:00:00 Test Item Value Reference Range Interpretation Comments GLUCOSE (test code = 2217) 109 MG/DL BUN (test code = 2208) 25 MG/DL CREATININE (test code = 2214) 0.78 MG/DL eGFR AMER. (test code 98 ML/MIN/1.73 = 72350) eGFR NON- AMER. (test 84 ML/MIN/1.73 code = 58796) CALC BUN/CREAT (test code = 32 RATIO [...] (test code = 2219) 25 U/L LIPID [id number] 00:00:00 Test Item Value Reference Range Interpretation Comments CHOLESTEROL (test code = 2210) 295 MG/DL TRIGLYCERIDES (test code = 2232) 218 MG/DL HDL CHOLESTEROL (test code = 2220) 46 MG/DL CALC LDL CHOL (test code = 2237) 205 MG/DL RISK RATIO LDL/HDL (test code = 4.47 RATIO 2238) LIPID [id number] 00:00:00 Test Item Value Reference Range Interpretation Comments CHOLESTEROL (test code = 2210) 295 MG/DL TRIGLYCERIDES (test code = 2232) 218 MG/DL HDL CHOLESTEROL (test code = 2220) 46 MG/DL CALC LDL CHOL (test code = 2237) 205 MG/DL RISK RATIO LDL/HDL (test code = 4.47 RATIO 2238) HEMOGLOBIN [id number] 00:00:00 Test Item Value Reference Range Interpretation Comments HEMOGLOBIN A1c (test code = 33468) 7.0 % HEMOGLOBIN [id number] 00:00:00 Test Item Value Reference Range Interpretation Comments HEMOGLOBIN A1c (test code = 55366) 7.0 % HEMOGLOBIN [id number] 00:00:00 Test Item Value Reference Range Interpretation Comments HEMOGLOBIN A1c (test code = 12877) 7.0 % [id number] 00:00:00 Test Item Value Reference Range Interpretation Comments TSH, THIRD GENERATION (test code 0.565 UIU/ML = 2821) [id number] 00:00:00 Test Item Value Reference Range Interpretation Comments TSH, THIRD GENERATION (test code 0.565 UIU/ML = 2821) [id number] 00:00:00 Test Item Value Reference Range Interpretation Comments TSH, THIRD GENERATION (test code 0.565 UIU/ML = 2821) [id number] 00:00:00 Test Item Value Reference Range Interpretation Comments TSH, THIRD GENERATION (test code 0.379 UIU/ML = 2821) [id number] 00:00:00 Test Item Value Reference Range Interpretation Comments TSH, THIRD GENERATION (test code 0.379 UIU/ML = 2821) [id number] 00:00:00 Test Item Value Reference Range Interpretation Comments TSH, THIRD GENERATION (test code 0.379 UIU/ML = 2821) [id number] 00:00:00 Test Item Value Reference Range Interpretation Comments TSH, THIRD GENERATION (test code 0.379 UIU/ML = 2821) [id number] 00:00:00 Test Item Value Reference Range Interpretation Comments TSH, THIRD GENERATION (test code 0.379 UIU/ML = 2821) [id number] 00:00:00 Test Item Value Reference Range Interpretation Comments TSH, THIRD GENERATION (test code 0.379 UIU/ML = 2821) [id number] 00:00:00 Test Item Value Reference Range Interpretation Comments TSH, THIRD GENERATION (test code 0.379 UIU/ML = 2821) [id number] 00:00:00 Test Item Value Reference Range Interpretation Comments TSH, THIRD GENERATION (test code 0.379 UIU/ML = 2821) [id number] 00:00:00 Test Item Value Reference Range Interpretation Comments TSH, THIRD GENERATION (test code 0.379 UIU/ML = 2821) [id number] 00:00:00 Test Item Value Reference Range Interpretation Comments TSH, THIRD GENERATION (test code 0.379 UIU/ML = 2821) [id number] 00:00:00 Test Item Value Reference Range Interpretation Comments TSH, THIRD GENERATION (test code 0.379 UIU/ML = 2821) CULTURE, [id number] 00:00:00 Test Item Value Reference Range Interpretation Comments CULTURE, URINE (test SPECIMEN NUMBER: code = 82212) [id number] CULTURE, [id number] 00:00:00 Test Item Value Reference Range Interpretation Comments CULTURE, URINE (test SPECIMEN NUMBER: code = 16612) [id number] CULTURE, [id number] 00:00:00 Test Item Value Reference Range Interpretation Comments CULTURE, URINE (test SPECIMEN NUMBER: code = 33934) [id number] CULTURE, [id number] 00:00:00 Test Item Value Reference Range Interpretation Comments CULTURE, URINE (test SPECIMEN NUMBER: code = 66739) [id number] CULTURE, [id number] 00:00:00 Test Item Value Reference Range Interpretation Comments CULTURE, URINE (test SPECIMEN NUMBER: code = 73944) [id number] CULTURE, [id number] 00:00:00 Test Item Value Reference Range Interpretation Comments CULTURE, URINE (test SPECIMEN NUMBER: code = 55550) [id number] CULTURE, [id number] 00:00:00 Test Item Value Reference Range Interpretation Comments CULTURE, URINE (test SPECIMEN NUMBER: code = 46340) [id number] COMPREHENSIVE METABOLIC [id number] 00:00:00 Test Item Value Reference Range Interpretation Comments GLUCOSE (test code = 2217) 128 MG/DL BUN (test code = 2208) 26 MG/DL CREATININE (test code = 2214) 0.92 MG/DL eGFR AMER. (test code 81 ML/MIN/1.73 = 69670) eGFR NON- AMER. (test 70 ML/MIN/1.73 code = 79504) CALC BUN/CREAT (test code = 28 RATIO [...] code = 2219) 29 U/L COMPREHENSIVE METABOLIC [id number] 00:00:00 Test Item Value Reference Range Interpretation Comments GLUCOSE (test code = 2217) 128 MG/DL BUN (test code = 2208) 26 MG/DL CREATININE (test code = 2214) 0.92 MG/DL eGFR AMER. (test code 81 ML/MIN/1.73 = 17980) eGFR NON- AMER. (test 70 ML/MIN/1.73 code = 94456) CALC BUN/CREAT (test code = 28 RATIO [...] code = 2219) 29 U/L ACUTE HEPATITIS [id number] 00:00:00 Test Item Value Reference Range Interpretation Comments HEPATITIS A IgM (test code = NON-REACTIVE 56649) HEPATITIS B CORE IgM (test code NON-REACTIVE = 4644) HEPATITIS B SURF AG (test code = NON-REACTIVE 2739) HEPATITIS C ANTIBODY (test code NON-REACTIVE = 4675) INTERPRETATION HEPATITIS A: (NOTE) (test code = 2552) INTERPRETATION HEPATITIS B: (NOTE) (test code = 63442) INTERPRETATION HEPATITIS C: (NOTE) (test code = 09352) ACUTE HEPATITIS [id number] 00:00:00 Test Item Value Reference Range Interpretation Comments HEPATITIS A IgM (test code = NON-REACTIVE 93491) HEPATITIS B CORE IgM (test code NON-REACTIVE = 4644) HEPATITIS B SURF AG (test code = NON-REACTIVE 2739) HEPATITIS C ANTIBODY (test code NON-REACTIVE = 4675) INTERPRETATION HEPATITIS A: (NOTE) (test code = 2552) INTERPRETATION HEPATITIS B: (NOTE) (test code = 35121) INTERPRETATION HEPATITIS C: (NOTE) (test code = 82224) [id number] 00:00:00 Test Item Value Reference Range Interpretation Comments AMYLASE (test code = 2205) 32 U/L [id number] 00:00:00 Test Item Value Reference Range Interpretation Comments AMYLASE (test code = 2205) 32 U/L [id number] 00:00:00 Test Item Value Reference Range Interpretation Comments LIPASE (test code = 2058) 22 U/L [id number] 00:00:00 Test Item Value Reference Range Interpretation Comments LIPASE (test code = 2058) 22 U/L [id number] 00:00:00 Test Item Value Reference Range Interpretation Comments LIPASE (test code = 2058) 22 U/L COMPREHENSIVE METABOLIC [id number] 00:00:00 Test Item Value Reference Range Interpretation Comments GLUCOSE (test code = 2217) 128 MG/DL BUN (test code = 2208) 26 MG/DL CREATININE (test code = 2214) 0.92 MG/DL eGFR AMER. (test code 81 ML/MIN/1.73 = 80485) eGFR NON- AMER. (test 70 ML/MIN/1.73 code = 36855) CALC BUN/CREAT (test code = 28 RATIO [...] code = 2219) 29 U/L COMPREHENSIVE METABOLIC [id number] 00:00:00 Test Item Value Reference Range Interpretation Comments GLUCOSE (test code = 2217) 128 MG/DL BUN (test code = 2208) 26 MG/DL CREATININE (test code = 2214) 0.92 MG/DL eGFR AMER. (test code 81 ML/MIN/1.73 = 11007) eGFR NON- AMER. (test 70 ML/MIN/1.73 code = 37230) CALC BUN/CREAT (test code = 28 RATIO [...] code = 2219) 29 U/L ACUTE HEPATITIS [id number] 00:00:00 Test Item Value Reference Range Interpretation Comments HEPATITIS A IgM (test code = NON-REACTIVE 41229) HEPATITIS B CORE IgM (test code NON-REACTIVE = 4644) HEPATITIS B SURF AG (test code = NON-REACTIVE 2739) HEPATITIS C ANTIBODY (test code NON-REACTIVE = 4675) INTERPRETATION HEPATITIS A: (NOTE) (test code = 2552) INTERPRETATION HEPATITIS B: (NOTE) (test code = 94411) INTERPRETATION HEPATITIS C: (NOTE) (test code = 37275) ACUTE HEPATITIS [id number] 00:00:00 Test Item Value Reference Range Interpretation Comments HEPATITIS A IgM (test code = NON-REACTIVE 22509) HEPATITIS B CORE IgM (test code NON-REACTIVE = 4644) HEPATITIS B SURF AG (test code = NON-REACTIVE 2739) HEPATITIS C ANTIBODY (test code NON-REACTIVE = 4675) INTERPRETATION HEPATITIS A: (NOTE) (test code = 2552) INTERPRETATION HEPATITIS B: (NOTE) (test code = 35225) INTERPRETATION HEPATITIS C: (NOTE) (test code = 36548) [id number] 00:00:00 Test Item Value Reference Range Interpretation Comments AMYLASE (test code = 2205) 32 U/L [id number] 00:00:00 Test Item Value Reference Range Interpretation Comments AMYLASE (test code = 2205) 32 U/L [id number] 00:00:00 Test Item Value Reference Range Interpretation Comments LIPASE (test code = 2058) 22 U/L [id number] 00:00:00 Test Item Value Reference Range Interpretation Comments LIPASE (test code = 2058) 22 U/L [id number] 00:00:00 Test Item Value Reference Range Interpretation Comments LIPASE (test code = 2058) 22 U/L COMPREHENSIVE METABOLIC [id number] 00:00:00 Test Item Value Reference Range Interpretation Comments GLUCOSE (test code = 2217) 128 MG/DL BUN (test code = 2208) 26 MG/DL CREATININE (test code = 2214) 0.92 MG/DL eGFR AMER. (test code 81 ML/MIN/1.73 = 85825) eGFR NON- AMER. (test 70 ML/MIN/1.73 code = 37903) CALC BUN/CREAT (test code = 28 RATIO [...] code = 2219) 29 U/L ACUTE HEPATITIS [id number] 00:00:00 Test Item Value Reference Range Interpretation Comments HEPATITIS A IgM (test code = NON-REACTIVE 45536) HEPATITIS B CORE IgM (test code NON-REACTIVE = 4698) HEPATITIS B SURF AG (test code = NON-REACTIVE 2050) HEPATITIS C ANTIBODY (test code NON-REACTIVE = 4651) INTERPRETATION HEPATITIS A: (NOTE) (test code = 2552) INTERPRETATION HEPATITIS B: (NOTE) (test code = 92129) INTERPRETATION HEPATITIS C: (NOTE) (test code = 35754) [id number] 00:00:00 Test Item Value Reference Range Interpretation Comments AMYLASE (test code = 2205) 32 U/L [id number] 00:00:00 Test Item Value Reference Range Interpretation Comments LIPASE (test code = 8) 22 U/L [id number] 00:00:00 Test Item Value Reference Range Interpretation Comments LIPASE (test code = 2058) 22 U/L COMPREHENSIVE METABOLIC [id number] 00:00:00 Test Item Value Reference Range Interpretation Comments GLUCOSE (test code = 2217) 128 MG/DL BUN (test code = 2208) 26 MG/DL CREATININE (test code = 2214) 0.92 MG/DL eGFR AMER. (test code 81 ML/MIN/1.73 = 15952) eGFR NON- AMER. (test 70 ML/MIN/1.73 code = 62799) CALC BUN/CREAT (test code = 28 RATIO [...] code = 2219) 29 U/L COMPREHENSIVE METABOLIC [id number] 00:00:00 Test Item Value Reference Range Interpretation Comments GLUCOSE (test code = 2217) 128 MG/DL BUN (test code = 2208) 26 MG/DL CREATININE (test code = 2214) 0.92 MG/DL eGFR AMER. (test code 81 ML/MIN/1.73 = 67000) eGFR NON- AMER. (test 70 ML/MIN/1.73 code = 75866) CALC BUN/CREAT (test code = 28 RATIO [...] code = 2219) 29 U/L ACUTE HEPATITIS [id number] 00:00:00 Test Item Value Reference Range Interpretation Comments HEPATITIS A IgM (test code = NON-REACTIVE 57058) HEPATITIS B CORE IgM (test code NON-REACTIVE = 4644) HEPATITIS B SURF AG (test code = NON-REACTIVE 2739) HEPATITIS C ANTIBODY (test code NON-REACTIVE = 4675) INTERPRETATION HEPATITIS A: (NOTE) (test code = 2552) INTERPRETATION HEPATITIS B: (NOTE) (test code = 72656) INTERPRETATION HEPATITIS C: (NOTE) (test code = 04517) ACUTE HEPATITIS [id number] 00:00:00 Test Item Value Reference Range Interpretation Comments HEPATITIS A IgM (test code = NON-REACTIVE 31721) HEPATITIS B CORE IgM (test code NON-REACTIVE = 4644) HEPATITIS B SURF AG (test code = NON-REACTIVE 2739) HEPATITIS C ANTIBODY (test code NON-REACTIVE = 4675) INTERPRETATION HEPATITIS A: (NOTE) (test code = 2552) INTERPRETATION HEPATITIS B: (NOTE) (test code = 38671) INTERPRETATION HEPATITIS C: (NOTE) (test code = 61733) [id number] 00:00:00 Test Item Value Reference Range Interpretation Comments AMYLASE (test code = 2205) 32 U/L [id number] 00:00:00 Test Item Value Reference Range Interpretation Comments AMYLASE (test code = 2205) 32 U/L [id number] 00:00:00 Test Item Value Reference Range Interpretation Comments LIPASE (test code = 2058) 22 U/L [id number] 00:00:00 Test Item Value Reference Range Interpretation Comments LIPASE (test code = 2058) 22 U/L [id number] 00:00:00 Test Item Value Reference Range Interpretation Comments LIPASE (test code = 2058) 22 U/L [id number] 00:00:00 Test Item Value Reference Range Interpretation Comments TSH, THIRD GENERATION (test code 4.890 UIU/ML = 2821) [id number] 00:00:00 Test Item Value Reference Range Interpretation Comments TSH, THIRD GENERATION (test code 4.890 UIU/ML = 2821) [id number] 00:00:00 Test Item Value Reference Range Interpretation Comments TSH, THIRD GENERATION (test code 4.890 UIU/ML = 2821) COMPREHENSIVE METABOLIC [id number] 00:00:00 Test Item Value Reference Range Interpretation Comments GLUCOSE (test code = 2217) 121 MG/DL BUN (test code = 2208) 40 MG/DL CREATININE (test code = 2214) 1.48 MG/DL eGFR AMER. (test code 45 ML/MIN/1.73 = 34863) eGFR NON- AMER. (test 39 ML/MIN/1.73 code = 44502) CALC BUN/CREAT (test code = 27 RATIO [...] code = 2219) 20 U/L COMPREHENSIVE METABOLIC [id number] 00:00:00 Test Item Value Reference Range Interpretation Comments GLUCOSE (test code = 2217) 121 MG/DL BUN (test code = 2208) 40 MG/DL CREATININE (test code = 2214) 1.48 MG/DL eGFR AMER. (test code 45 ML/MIN/1.73 = 46805) eGFR NON- AMER. (test 39 ML/MIN/1.73 code = 97245) CALC BUN/CREAT (test code = 27 RATIO [...] ALT (test code = 2219) 20 U/L [id number] 00:00:00 Test Item Value Reference Range Interpretation Comments TSH, THIRD GENERATION (test code 4.890 UIU/ML = 2821) [id number] 00:00:00 Test Item Value Reference Range Interpretation Comments TSH, THIRD GENERATION (test code 4.890 UIU/ML = 2821) [id number] 00:00:00 Test Item Value Reference Range Interpretation Comments TSH, THIRD GENERATION (test code 4.890 UIU/ML = 2821) COMPREHENSIVE METABOLIC [id number] 00:00:00 Test Item Value Reference Range Interpretation Comments GLUCOSE (test code = 2217) 121 MG/DL BUN (test code = 2208) 40 MG/DL CREATININE (test code = 2214) 1.48 MG/DL eGFR AMER. (test code 45 ML/MIN/1.73 = 26556) eGFR NON- AMER. (test 39 ML/MIN/1.73 code = 74325) CALC BUN/CREAT (test code = 27 RATIO [...] code = 2219) 20 U/L COMPREHENSIVE METABOLIC [id number] 00:00:00 Test Item Value Reference Range Interpretation Comments GLUCOSE (test code = 2217) 121 MG/DL BUN (test code = 2208) 40 MG/DL CREATININE (test code = 2214) 1.48 MG/DL eGFR AMER. (test code 45 ML/MIN/1.73 = 53476) eGFR NON- AMER. (test 39 ML/MIN/1.73 code = 19295) CALC BUN/CREAT (test code = 27 RATIO [...] ALT (test code = 2219) 20 U/L [id number] 00:00:00 Test Item Value Reference Range Interpretation Comments TSH, THIRD GENERATION (test code 4.890 UIU/ML = 2821) [id number] 00:00:00 Test Item Value Reference Range Interpretation Comments TSH, THIRD GENERATION (test code 4.890 UIU/ML = 2821) COMPREHENSIVE METABOLIC [id number] 00:00:00 Test Item Value Reference Range Interpretation Comments GLUCOSE (test code = 2217) 121 MG/DL BUN (test code = 2208) 40 MG/DL CREATININE (test code = 2214) 1.48 MG/DL eGFR AMER. (test code 45 ML/MIN/1.73 = 74105) eGFR NON- AMER. (test 39 ML/MIN/1.73 code = 93203) CALC BUN/CREAT (test code = 27 RATIO [...] ALT (test code = 2219) 20 U/L [id number] 00:00:00 Test Item Value Reference Range Interpretation Comments TSH, THIRD GENERATION (test code 4.890 UIU/ML = 2821) [id number] 00:00:00 Test Item Value Reference Range Interpretation Comments TSH, THIRD GENERATION (test code 4.890 UIU/ML = 2821) [id number] 00:00:00 Test Item Value Reference Range Interpretation Comments TSH, THIRD GENERATION (test code 4.890 UIU/ML = 2821) COMPREHENSIVE METABOLIC [id number] 00:00:00 Test Item Value Reference Range Interpretation Comments GLUCOSE (test code = 2217) 121 MG/DL BUN (test code = 2208) 40 MG/DL CREATININE (test code = 2214) 1.48 MG/DL eGFR AMER. (test code 45 ML/MIN/1.73 = 41254) eGFR NON- AMER. (test 39 ML/MIN/1.73 code = 85808) CALC BUN/CREAT (test code = 27 RATIO [...] code = 2219) 20 U/L COMPREHENSIVE METABOLIC [id number] 00:00:00 Test Item Value Reference Range Interpretation Comments GLUCOSE (test code = 2217) 121 MG/DL BUN (test code = 2208) 40 MG/DL CREATININE (test code = 2214) 1.48 MG/DL eGFR AMER. (test code 45 ML/MIN/1.73 = 80313) eGFR NON- AMER. (test 39 ML/MIN/1.73 code = 74697) CALC BUN/CREAT (test code = 27 RATIO [...] (test code = 2219) 20 U/L LIPID [id number] 00:00:00 Test Item Value Reference Range Interpretation Comments CHOLESTEROL (test code = 2210) 261 MG/DL TRIGLYCERIDES (test code = 2232) 165 MG/DL HDL CHOLESTEROL (test code = 2220) 58 MG/DL CALC LDL CHOL (test code = 2237) 170 MG/DL RISK RATIO LDL/HDL (test code = 2.93 RATIO 2238) LIPID [id number] 00:00:00 Test Item Value Reference Range Interpretation Comments CHOLESTEROL (test code = 2210) 261 MG/DL TRIGLYCERIDES (test code = 2232) 165 MG/DL HDL CHOLESTEROL (test code = 2220) 58 MG/DL CALC LDL CHOL (test code = 2237) 170 MG/DL RISK RATIO LDL/HDL (test code = 2.93 RATIO 2238) CBC W/AUTO [id number] 00:00:00 Test Item Value Reference Range Interpretation [...] code = 1015) 378 K/UL CBC W/AUTO [id number] 00:00:00 Test Item Value Reference Range Interpretation [...] code = 1015) 378 K/UL CBC W/AUTO [id number] 00:00:00 Test Item Value Reference Range Interpretation [...] (test code = 1015) 378 K/UL HEMOGLOBIN [id number] 00:00:00 Test Item Value Reference Range Interpretation Comments HEMOGLOBIN A1c (test code = 54418) 6.4 % HEMOGLOBIN [id number] 00:00:00 Test Item Value Reference Range Interpretation Comments HEMOGLOBIN A1c (test code = 52705) 6.4 % HEMOGLOBIN [id number] 00:00:00 Test Item Value Reference Range Interpretation Comments HEMOGLOBIN A1c (test code = 30542) 6.4 % [id number] 00:00:00 Test Item Value Reference Range Interpretation Comments TSH (test code = 2821) 5.290 UIU/ML [id number] 00:00:00 Test Item Value Reference Range Interpretation Comments TSH (test code = 2821) 5.290 UIU/ML [id number] 00:00:00 Test Item Value Reference Range Interpretation Comments TSH (test code = 2821) 5.290 UIU/ML LIPID [id number] 00:00:00 Test Item Value Reference Range Interpretation Comments CHOLESTEROL (test code = 2210) 261 MG/DL TRIGLYCERIDES (test code = 2232) 165 MG/DL HDL CHOLESTEROL (test code = 2220) 58 MG/DL CALC LDL CHOL (test code = 2237) 170 MG/DL RISK RATIO LDL/HDL (test code = 2.93 RATIO 2238) LIPID [id number] 00:00:00 Test Item Value Reference Range Interpretation Comments CHOLESTEROL (test code = 2210) 261 MG/DL TRIGLYCERIDES (test code = 2232) 165 MG/DL HDL CHOLESTEROL (test code = 2220) 58 MG/DL CALC LDL CHOL (test code = 2237) 170 MG/DL RISK RATIO LDL/HDL (test code = 2.93 RATIO 2238) CBC W/AUTO [id number] 00:00:00 Test Item Value Reference Range Interpretation [...] code = 1015) 378 K/UL CBC W/AUTO [id number] 00:00:00 Test Item Value Reference Range Interpretation [...] code = 1015) 378 K/UL CBC W/AUTO [id number] 00:00:00 Test Item Value Reference Range Interpretation [...] (test code = 1015) 378 K/UL HEMOGLOBIN [id number] 00:00:00 Test Item Value Reference Range Interpretation Comments HEMOGLOBIN A1c (test code = 15968) 6.4 % HEMOGLOBIN [id number] 00:00:00 Test Item Value Reference Range Interpretation Comments HEMOGLOBIN A1c (test code = 25403) 6.4 % HEMOGLOBIN [id number] 00:00:00 Test Item Value Reference Range Interpretation Comments HEMOGLOBIN A1c (test code = 98852) 6.4 % [id number] 00:00:00 Test Item Value Reference Range Interpretation Comments TSH (test code = 2821) 5.290 UIU/ML [id number] 00:00:00 Test Item Value Reference Range Interpretation Comments TSH (test code = 2821) 5.290 UIU/ML [id number] 00:00:00 Test Item Value Reference Range Interpretation Comments TSH (test code = 2821) 5.290 UIU/ML LIPID [id number] 00:00:00 Test Item Value Reference Range Interpretation Comments CHOLESTEROL (test code = 2210) 261 MG/DL TRIGLYCERIDES (test code = 2232) 165 MG/DL HDL CHOLESTEROL (test code = 2220) 58 MG/DL CALC LDL CHOL (test code = 2237) 170 MG/DL RISK RATIO LDL/HDL (test code = 2.93 RATIO 2238) CBC W/AUTO [id number] 00:00:00 Test Item Value Reference Range Interpretation [...] code = 1015) 378 K/UL CBC W/AUTO [id number] 00:00:00 Test Item Value Reference Range Interpretation [...] (test code = 1015) 378 K/UL HEMOGLOBIN [id number] 00:00:00 Test Item Value Reference Range Interpretation Comments HEMOGLOBIN A1c (test code = 52079) 6.4 % HEMOGLOBIN [id number] 00:00:00 Test Item Value Reference Range Interpretation Comments HEMOGLOBIN A1c (test code = 39691) 6.4 % [id number] 00:00:00 Test Item Value Reference Range Interpretation Comments TSH (test code = 2821) 5.290 UIU/ML [id number] 00:00:00 Test Item Value Reference Range Interpretation Comments TSH (test code = 2821) 5.290 UIU/ML LIPID [id number] 00:00:00 Test Item Value Reference Range Interpretation Comments CHOLESTEROL (test code = 2210) 261 MG/DL TRIGLYCERIDES (test code = 2232) 165 MG/DL HDL CHOLESTEROL (test code = 2220) 58 MG/DL CALC LDL CHOL (test code = 2237) 170 MG/DL RISK RATIO LDL/HDL (test code = 2.93 RATIO 2238) LIPID [id number] 00:00:00 Test Item Value Reference Range Interpretation Comments CHOLESTEROL (test code = 2210) 261 MG/DL TRIGLYCERIDES (test code = 2232) 165 MG/DL HDL CHOLESTEROL (test code = 2220) 58 MG/DL CALC LDL CHOL (test code = 2237) 170 MG/DL RISK RATIO LDL/HDL (test code = 2.93 RATIO 2238) CBC W/AUTO [id number] 00:00:00 Test Item Value Reference Range Interpretation [...] code = 1015) 378 K/UL CBC W/AUTO [id number] 00:00:00 Test Item Value Reference Range Interpretation [...] code = 1015) 378 K/UL CBC W/AUTO [id number] 00:00:00 Test Item Value Reference Range Interpretation [...] (test code = 1015) 378 K/UL HEMOGLOBIN [id number] 00:00:00 Test Item Value Reference Range Interpretation Comments HEMOGLOBIN A1c (test code = 39032) 6.4 % HEMOGLOBIN [id number] 00:00:00 Test Item Value Reference Range Interpretation Comments HEMOGLOBIN A1c (test code = 74565) 6.4 % HEMOGLOBIN [id number] 00:00:00 Test Item Value Reference Range Interpretation Comments HEMOGLOBIN A1c (test code = 79321) 6.4 % [id number] 00:00:00 Test Item Value Reference Range Interpretation Comments TSH (test code = 2821) 5.290 UIU/ML [id number] 00:00:00 Test Item Value Reference Range Interpretation Comments TSH (test code = 2821) 5.290 UIU/ML [id number] 00:00:00 Test Item Value Reference Range Interpretation [...] code = 2821) 1.030 UIU/ML COMPREHENSIVE METABOLIC [id number] 00:00:00 Test Item Value Reference Range Interpretation Comments GLUCOSE (test code = 2217) 106 MG/DL BUN (test code = 2208) 23 MG/DL CREATININE (test code = 2214) 0.66 MG/DL eGFR AMER. (test code 114 ML/MIN/1.73 = 23834) eGFR NON- AMER. (test 99 ML/MIN/1.73 code = 46938) CALC BUN/CREAT (test code = 35 RATIO [...] code = 2219) 31 U/L COMPREHENSIVE METABOLIC [id number] 00:00:00 Test Item Value Reference Range Interpretation Comments GLUCOSE (test code = 2217) 106 MG/DL BUN (test code = 2208) 23 MG/DL CREATININE (test code = 2214) 0.66 MG/DL eGFR AMER. (test code 114 ML/MIN/1.73 = 07449) eGFR NON- AMER. (test 99 ML/MIN/1.73 code = 03210) CALC BUN/CREAT (test code = 35 RATIO [...] code = 2821) 0.335 UIU/ML COMPREHENSIVE METABOLIC [id number] 00:00:00 Test Item Value Reference Range Interpretation Comments GLUCOSE (test code = 2217) 106 MG/DL BUN (test code = 2208) 23 MG/DL CREATININE (test code = 2214) 0.66 MG/DL eGFR AMER. (test code 114 ML/MIN/1.73 = 67180) eGFR NON- AMER. (test 99 ML/MIN/1.73 code = 46382) CALC BUN/CREAT (test code = 35 RATIO [...] code = 2219) 31 U/L COMPREHENSIVE METABOLIC [id number] 00:00:00 Test Item Value Reference Range Interpretation Comments GLUCOSE (test code = 2217) 106 MG/DL BUN (test code = 2208) 23 MG/DL CREATININE (test code = 2214) 0.66 MG/DL eGFR AMER. (test code 114 ML/MIN/1.73 = 94213) eGFR NON- AMER. (test 99 ML/MIN/1.73 code = 22935) CALC BUN/CREAT (test code = 35 RATIO [...] code = 2821) 0.335 UIU/ML COMPREHENSIVE METABOLIC [id number] 00:00:00 Test Item Value Reference Range Interpretation Comments GLUCOSE (test code = 2217) 106 MG/DL BUN (test code = 2208) 23 MG/DL CREATININE (test code = 2214) 0.66 MG/DL eGFR AMER. (test code 114 ML/MIN/1.73 = 46604) eGFR NON- AMER. (test 99 ML/MIN/1.73 code = 42409) CALC BUN/CREAT (test code = 35 RATIO [...] code = 2821) 0.335 UIU/ML COMPREHENSIVE METABOLIC [id number] 00:00:00 Test Item Value Reference Range Interpretation Comments GLUCOSE (test code = 2217) 106 MG/DL BUN (test code = 2208) 23 MG/DL CREATININE (test code = 2214) 0.66 MG/DL eGFR AMER. (test code 114 ML/MIN/1.73 = 03385) eGFR NON- AMER. (test 99 ML/MIN/1.73 code = 10815) CALC BUN/CREAT (test code = 35 RATIO [...] code = 2219) 31 U/L COMPREHENSIVE METABOLIC [id number] 00:00:00 Test Item Value Reference Range Interpretation Comments GLUCOSE (test code = 2217) 106 MG/DL BUN (test code = 2208) 23 MG/DL CREATININE (test code = 2214) 0.66 MG/DL eGFR AMER. (test code 114 ML/MIN/1.73 = 15846) eGFR NON- AMER. (test 99 ML/MIN/1.73 code = 10745) CALC BUN/CREAT (test code = 35 RATIO [...] code = 2821) 0.335 UIU/ML COMPREHENSIVE METABOLIC [id number] 00:00:00 Test Item Value Reference Range Interpretation Comments GLUCOSE (test code = 2217) 103 MG/DL BUN (test code = 2208) 15 MG/DL CREATININE (test code = 2214) 0.77 MG/DL eGFR AMER. (test code 101 ML/MIN/1.73 = 27861) eGFR NON- AMER. (test 87 ML/MIN/1.73 code = 49400) CALC BUN/CREAT (test code = 19 RATIO [...] code = 2219) 24 U/L COMPREHENSIVE METABOLIC [id number] 00:00:00 Test Item Value Reference Range Interpretation Comments GLUCOSE (test code = 2217) 103 MG/DL BUN (test code = 2208) 15 MG/DL CREATININE (test code = 2214) 0.77 MG/DL eGFR AMER. (test code 101 ML/MIN/1.73 = 91317) eGFR NON- AMER. (test 87 ML/MIN/1.73 code = 04012) CALC BUN/CREAT (test code = 19 RATIO [...] code = 2821) 0.424 UIU/ML COMPREHENSIVE METABOLIC [id number] 00:00:00 Test Item Value Reference Range Interpretation Comments GLUCOSE (test code = 2217) 103 MG/DL BUN (test code = 2208) 15 MG/DL CREATININE (test code = 2214) 0.77 MG/DL eGFR AMER. (test code 101 ML/MIN/1.73 = 08994) eGFR NON- AMER. (test 87 ML/MIN/1.73 code = 74593) CALC BUN/CREAT (test code = 19 RATIO [...] code = 2219) 24 U/L COMPREHENSIVE METABOLIC [id number] 00:00:00 Test Item Value Reference Range Interpretation Comments GLUCOSE (test code = 2217) 103 MG/DL BUN (test code = 2208) 15 MG/DL CREATININE (test code = 2214) 0.77 MG/DL eGFR AMER. (test code 101 ML/MIN/1.73 = 23651) eGFR NON- AMER. (test 87 ML/MIN/1.73 code = 70827) CALC BUN/CREAT (test code = 19 RATIO [...] code = 2821) 0.424 UIU/ML COMPREHENSIVE METABOLIC [id number] 00:00:00 Test Item Value Reference Range Interpretation Comments GLUCOSE (test code = 2217) 103 MG/DL BUN (test code = 2208) 15 MG/DL CREATININE (test code = 2214) 0.77 MG/DL eGFR AMER. (test code 101 ML/MIN/1.73 = 33211) eGFR NON- AMER. (test 87 ML/MIN/1.73 code = 74276) CALC BUN/CREAT (test code = 19 RATIO [...] code = 2821) 0.424 UIU/ML COMPREHENSIVE METABOLIC [id number] 00:00:00 Test Item Value Reference Range Interpretation Comments GLUCOSE (test code = 2217) 103 MG/DL BUN (test code = 2208) 15 MG/DL CREATININE (test code = 2214) 0.77 MG/DL eGFR AMER. (test code 101 ML/MIN/1.73 = 00190) eGFR NON- AMER. (test 87 ML/MIN/1.73 code = 61732) CALC BUN/CREAT (test code = 19 RATIO [...] code = 2219) 24 U/L COMPREHENSIVE METABOLIC [id number] 00:00:00 Test Item Value Reference Range Interpretation Comments GLUCOSE (test code = 2217) 103 MG/DL BUN (test code = 2208) 15 MG/DL CREATININE (test code = 2214) 0.77 MG/DL eGFR AMER. (test code 101 ML/MIN/1.73 = 11395) eGFR NON- AMER. (test 87 ML/MIN/1.73 code = 81863) CALC BUN/CREAT (test code = 19 RATIO [...] (test code = 2821) 0.424 UIU/ML CULTURE, [id number] 00:00:00 Test Item Value Reference Range Interpretation Comments CULTURE, URINE (test SPECIMEN NUMBER: code = 09358) [id number] CULTURE, [id number] 00:00:00 Test Item Value Reference Range Interpretation Comments CULTURE, URINE (test SPECIMEN NUMBER: code = 04438) [id number] CULTURE, [id number] 00:00:00 Test Item Value Reference Range Interpretation Comments CULTURE, URINE (test SPECIMEN NUMBER: code = 23974) [id number] CULTURE, [id number] 00:00:00 Test Item Value Reference Range Interpretation Comments CULTURE, URINE (test SPECIMEN NUMBER: code = 54129) [id number] CULTURE, [id number] 00:00:00 Test Item Value Reference Range Interpretation Comments CULTURE, URINE (test SPECIMEN NUMBER: code = 22524) [id number] CULTURE, [id number] 00:00:00 Test Item Value Reference Range Interpretation Comments CULTURE, URINE (test SPECIMEN NUMBER: code = 69569) [id number] CULTURE, [id number] 00:00:00 Test Item Value Reference Range Interpretation Comments CULTURE, URINE (test SPECIMEN NUMBER: code = 10344) [id number] CULTURE, [id number] 00:00:00 Test Item Value Reference Range Interpretation Comments CULTURE, URINE (test SPECIMEN NUMBER: code = 74282) [id number] CULTURE, [id number] 00:00:00 Test Item Value Reference Range Interpretation Comments CULTURE, URINE (test SPECIMEN NUMBER: code = 73006) [id number] CULTURE, [id number] 00:00:00 Test Item Value Reference Range Interpretation Comments CULTURE, URINE (test SPECIMEN NUMBER: code = 91897) [id number] CULTURE, [id number] 00:00:00 Test Item Value Reference Range Interpretation Comments CULTURE, URINE (test SPECIMEN NUMBER: code = 85204) [id number] CULTURE, [id number] 00:00:00 Test Item Value Reference Range Interpretation Comments CULTURE, URINE (test SPECIMEN NUMBER: code = 12766) [id number] CULTURE, [id number] 00:00:00 Test Item Value Reference Range Interpretation Comments CULTURE, URINE (test SPECIMEN NUMBER: code = 94189) [id number] CULTURE, [id number] 00:00:00 Test Item Value Reference Range Interpretation Comments CULTURE, URINE (test SPECIMEN NUMBER: code = 24333) [id number]
[2022-08-05 09:51] LABS: Absolute Lymphocytes (CBC) 1.7 K/uL (0.7-4.9); Hematocrit 37.2 % (36.0-45.0); Lymphocytes % 19.5 % (15.3-44.8); MCV 91.2 fL (80-100); MPV 6.5 fL (7.6-11.3); RBC Red Blood Cell Count 4.08 M/uL (3.86-4.86)
[2022-08-05 10:09] LABS: Albumin 3.9 g/dL (3.4-5.0); Bilirubin Total 0.3 mg/dL (0.2-1.0)
--- NOTE | 2022-08-05 10:38 | RAD REPORT ---
EXAM DESCRIPTION: CT - Abdomen Pelvis Wo Contrast - 08/05/2022 9:53 am CLINICAL HISTORY: ABD PAIN COMPARISON: Abdomen Pelvis W Contrast dated 05/04/2022; Abdomen Pelvis W Contrast dated 11/22/2021 ; Abdomen Pelvis Wo Contrast dated 08/26/2021; Abdomen Pelvis Wo Contrast dated 08/05/2021 TECHNIQUE: Thin cut axial CT imaging of the abdomen and pelvis was performed without IV contrast. Mu ltiplanar reformats were generated and reviewed. All CT scans are performed using dose optimization technique as appropriate and may include automated exposure control or mA/KV adjustment according to patient size. FINDINGS: No suspicious findings in the lung bases. The liver, spleen, and pancreas show no suspicious findings. Subcentimeter hypoattenuating liver foci , may represent small cysts, not well characterized. Gallbladder and biliary tree are also without penn spicious finding. Symmetric renal contour, without suspicious parenchymal findings within limits of noncontrast techniq ue. No evidence of radiopaque calculi or hydroureteronephrosis. No dilated bowel loops or bowel wall thickening. No free air, free fluid or inflammatory stranding. N o hernia, mass or bulky lymphadenopathy. The urinary bladder is without significant finding. No suspicious bony findings. IMPRESSION: No acute intra-abdominal process.
[2022-08-05] MEDS ORDERED: NA CHLORIDE 0.9% 1,000 ML ONE (10:49)
[2022-08-05] MEDS ORDERED: DIPHENHYDRAMINE 50 MG/ML VIAL ONE (10:49)
[2022-08-05] MEDS ORDERED: KETOROLAC 30 MG/ML INJ ONE (10:49)
[2022-08-05] MEDS ORDERED: METOCLOPRAMIDE 10 MG/2mL INJ ONE (10:49)
--- NOTE | 2022-08-05 12:24 | ER ---
Nurse's Notes [facility] Name: Jaimie Amanda Age: 61 yrs Sex: Female : 1960 Arrival Date: 08/05/2022 Time: 08:53 Bed IW7 Private MD: Diagnosis: Hypo-osmolality and hyponatremia;Abdominal pain, Generalized Presentation: 08/05 09:17 Chief complaint: N/V/D and upper abdominal pain x 2 days. Coronavirus screen: At this hb time, the client does not indicate any symptoms associated with coronavirus-19. Ebola Screen: No symptoms or risks identified at this time. Initial Sepsis Screen: Does the patient meet any 2 criteria? No. Patient's initial sepsis screen is negative. Does the patient have a suspected source of infection? No. Patient's initial sepsis screen is negative. Risk Assessment: Do you want to hurt yourself or someone else? Patient reports no desire to harm self or others. Onset of symptoms was August 04, 2022. 09:17 Method Of Arrival: Ambulatory hb 09:17 Acuity: ZHEN 3 hb Triage Assessment: 11:17 General: Appears in no apparent distress. comfortable, Behavior is calm, cooperative, ld1 appropriate for age. Pain: Denies pain. GI: Abdomen is round non-distended. Historical: - Allergies: 09:18 hydrochlorothiazide; hb - PMHx: 09:18 Anxiety; Chronic Abdominal Pain; Hypertensive disorder; Hypothyroidism; low NA; NIDDM; hb - PSHx: 09:18 Thyroidectomy; hb - Immunization history:: Adult Immunizations up to date, Client reports receiving the 2nd dose of the Covid vaccine. - Social history:: Smoking status: Patient denies any tobacco usage or history of. Patient/guardian denies using alcohol. Screenin:16 [facility] ED Fall Risk Assessment (Adult) History of falling in the last 3 months, ld1 including since admission No falls in past 3 months (0 pts). Abuse screen: Denies threats or abuse. Denies injuries from another. Nutritional screening: No deficits noted. Tuberculosis screening: No symptoms or risk factors identified. Assessment: 11:16 Reassessment: Patient appears in no apparent distress at this time. Patient and/or ld1 family updated on plan of care and expected duration. Pain level reassessed. Patient is alert, oriented x 3, equal unlabored respirations, skin warm/dry/pink. Pt requesting to leave after medication received. Pt denies pain. "I want to go home right now.". 11:17 GI: Bowel sounds present X 4 quads. ld1 11:17 GI: Abd is soft X 4 quads Abdomen is tender to palpation. ld1 Vital Signs: 09:17 BP 144 / 88; Pulse 98; Resp 16; Temp 99(TE); Pulse Ox 96% on R/A; Weight 68.04 kg; hb Height 5 ft. 7 in. ; Pain 10/10; 11:15 BP 139 / 79; Pulse 95; Resp 16; Pulse Ox 97% on R/A; ld1 09:17 Body Mass Index 23.49 (68.04 kg, 170.18 cm) hb 09:17 Pain Scale: Adult hb ED Course: 08:55 Patient arrived in ED. mr 09:12 Blake Aguirre MD is Attending Physician. bs3 09:18 Triage completed. hb 09:18 Arm band placed on. hb 09:55 Abdomen In Process Unspecified. EDMS 11:16 Patient has correct armband on for positive identification. Call light in reach. Pulse ld1 ox on. NIBP on. 11:16 No provider procedures requiring assistance completed. IV discontinued, intact, ld1 bleeding controlled, No redness/swelling at site. Administered Medications: 10:46 Drug: Ketorolac IVP 15 mg Route: IVP; Site: left hand; iw 10:46 Drug: metoCLOPramide IVP 10 mg Route: IVP; Site: left antecubital; iw 10:46 Drug: diphenhydrAMINE IVP 12.5 mg Route: IVP; Site: left wrist; iw 11:15 Not Given (Patient Refused): NS 0.9% IV 500 ml IV at bolus once ld1 Medication: 11:16 VIS not applicable for this client. ld1 Outcome: 11:17 Discharged to home ambulatory, with family. ld1 11:17 Condition: stable 11:17 Discharge instructions given to patient, family, Instructed on discharge instructions, follow up and referral plans. Demonstrated understanding of instructions, follow-up care. 12:24 Discharge ordered by MD. bs3 12:46 Patient left the ED. iw Signatures: Dispatcher [employer] [facility] Radha Messina Irene RN RN iw Gail Espinoza, RN RN hb Maritza Singh, RN RN ld1 Blake Aguirre MD MD bs3
--- NOTE | 2022-08-05 12:24 | EDPHYS ---
Physician Documentation [facility] Name: Jaimie Amanda Age: 61 yrs Sex: Female : 1960 Arrival Date: 08/05/2022 Time: 08:53 Bed IW7 Private MD: ED Physician Blake Aguirre HPI: 08/05 09:21 This 61 yrs old Female presents to ER via Ambulatory with complaints of bs3 Abdominal Pain, Diarrhea. 09:21 61-year-old female history of anxiety, chronic abdominal pain, hypertension hyper bs3 thyroidism presents with abdominal pain vomiting diarrhea symptoms started yesterday she tried Pepcid and Zofran without relief denies fevers or chills denies chest pain shortness of breath her pain is in her upper abdomen feels like a crampy pain for her mother at bedside she has had multiple similar episodes. Historical: - Allergies: 09:18 hydrochlorothiazide; hb - PMHx: 09:18 Anxiety; Chronic Abdominal Pain; Hypertensive disorder; Hypothyroidism; low NA; NIDDM; hb - PSHx: 09:18 Thyroidectomy; hb - Immunization history:: Adult Immunizations up to date, Client reports receiving the 2nd dose of the Covid vaccine. - Social history:: Smoking status: Patient denies any tobacco usage or history of. Patient/guardian denies using alcohol. ROS: 09:21 Constitutional: Negative for fever, chills bs3 09:21 All other systems are negative. Exam: 09:21 Constitutional: This is a well developed, well nourished patient who is awake, alert, bs3 and in no acute distress. Head/Face: Normocephalic, atraumatic. Eyes: Pupils equal round and reactive to light, extra-ocular motions intact. Lids and lashes normal. ENT: Dry mucous membranes Neck: Trachea midline, no thyromegaly, no neck stiffness Chest/axilla: Normal chest wall appearance and motion. Nontender with no deformity. No lesions are appreciated. Cardiovascular: Regular rate and rhythm with a normal S1 and S2. symmetric pulses in upper extremities Respiratory: Lungs have equal breath sounds bilaterally, clear to auscultation, no respiratory distress Abdomen/GI: Soft, non-tender, no rebound or guarding Back: No spinal tenderness. No costovertebral tenderness. Full range of motion. Skin: Warm, dry with normal turgor. Normal color with no rashes, no lesions, and no evidence of cellulitis. MS/ Extremity: Pulses equal, no cyanosis. Neurovascular intact. Full, normal range of motion. Neuro: Awake and alert, GCS 15, oriented to person, place, time, and situation. Cranial nerves II-XII grossly intact. Motor strength 5/5 in all extremities. Sensory grossly intact. Psych: Awake, alert, with orientation to person, place and time. Behavior, mood, and affect are within normal limits. Vital Signs: 09:17 BP 144 / 88; Pulse 98; Resp 16; Temp 99(TE); Pulse Ox 96% on R/A; Weight 68.04 kg; hb Height 5 ft. 7 in. ; Pain 10; 11:15 BP 139 / 79; Pulse 95; Resp 16; Pulse Ox 97% on R/A; ld1 09:17 Body Mass Index 23.49 (68.04 kg, 170.18 cm) hb 09:17 Pain Scale: Adult hb MDM: 09:12 Patient medically screened. bs3 09:21 Differential diagnosis: Nonspecific abd pain, gastritis, cholecystitis, pancreatitis, bs3 viral gastroenteritis, gastroenteritis, Patient with multiple recent visits for similar symptoms although patient states pain is worse than usual we will check electrolytes will evaluate for hyponatremia will evaluate for dehydration will treat pain and reassess, no recent ct abd/pelvis, will eval. Data reviewed: vital signs, nurses notes. 11:29 ED course: Work-up notable for hyponatremia otherwise negative for acute pathology her bs3 hyponatremia is not significantly changed from her prior CT negative for acute pathology patient left after her treatment, we did not have time to discuss all of her results or evaluate if she was improving per RN at bedside she was feeling better and requested her IV removed. 12:23 ED course: Patient discharged home. bs3 08/05 09:21 Order name: CBC with Diff; Complete Time: 10:11 bs3 08/05 09:21 Order name: Comprehensive Metabolic Panel; Complete Time: 10:11 bs3 08/05 09:21 Order name: Lipase; Complete Time: 10:11 bs3 08/05 09:48 Order name: Abdomen ; Complete Time: 10:58 EDMS Administered Medications: 10:46 Drug: Ketorolac IVP 15 mg Route: IVP; Site: left hand; iw 10:46 Drug: metoCLOPramide IVP 10 mg Route: IVP; Site: left antecubital; iw 10:46 Drug: diphenhydrAMINE IVP 12.5 mg Route: IVP; Site: left wrist; iw 11:15 Not Given (Patient Refused): NS 0.9% IV 500 ml IV at bolus once ld1 Disposition Summary: 08/05/22 12:24 Discharge Ordered Location: Home bs3 Problem: an acute exacerbation bs3 Symptoms: are resolved bs3 Condition: Stable bs3 Diagnosis - Hypo-osmolality and hyponatremia bs3 - Abdominal pain, Generalized bs3 Followup: bs3 - With: Private Physician - When: - Reason: Re-evaluation by your physician Discharge Instructions: - Discharge Summary Sheet bs3 - Abdominal Pain, Adult bs3 Forms: - Medication Reconciliation Form bs3 - Thank You Letter bs3 - Antibiotic Education bs3 - Prescription Opioid Use bs3 Signatures: Dispatcher [employer] EDMS Therese Logan RN RN Gail Espinoza RN RN Maritza Singh RN RN ld1 Blake Aguirre MD MD bs3 Corrections: (The following items were deleted from the chart) 09:48 09:25 Abdomen Pelvis W Con+CT.RAD.BRZ ordered. EDOR EDMS 12:24 11:29 ED course: Work-up notable for hyponatremia otherwise negative for acute bs3 pathology her hyponatremia is not significantly changed from her prior CT negative for acute pathology patient left after her treatment. bs3
[2022-08-05 12:51] VITALS: TEMP 99
[2022-08-05 12:52] VITALS: BP 139/79; O2SAT 97
[2022-08-05] MEDS ORDERED: NS 0.9% VIAL 10 ML ONE (13:18)
== END 2022-08-05 12:46 | disposition home or self-care (01) ==
LOC: ER 08:53 → SUPCPDRO 08:53 → ER 12:46
DX: E87.1 Hypo-osmolality and hyponatremia (principal); I10 Essential (primary) hypertension; F41.9 Anxiety disorder, unspecified; Z88.8 Allergy status to other drugs, medicaments and biological substances
CPT/HCPCS: 85025; 36415; 83690; 80053; 74176; 99284; A4216; J2765; J1200; J7030

== ENCOUNTER 2022-08-06 09:14 | Emergency (ER) | payer OTHER ==
--- OUTSIDE RECORDS SUMMARY | 2022-08-06 09:34 | XMS REPORT | Continuity of Care Document ---
:1960 Author Organization [facility] t Address [address] [place] [address] [place] [id number] Care Team Providers Name Role Phone [facility] Primary [facility] Physician MATT SIMPSON Attending Clinician Unavailable MATT SIMPSON Attending Clinician Unavailable Doctor Unassigned, [place] Attending Clinician Unavailable WALLY KRISHNAMURTHY Attending Clinician Unavailable Natacha Brewster Attending Clinician Payers Payer Name Policy Type Policy Number Effective Date Expiration Date Sarina castelan [facility] [id number] 2017 00:00:00 PLUS Problems This patient has [...] ers OPHEN INGREDI 07-27 ity of 00:00: [place] [facility] [...] Cente r Alcohol intake 2016-05-01 2016-05-01 Current [facility] 00:00:00 00:00:00 non-drinker of Medical nter alcohol (finding) Sex Assigned At [birth year] [facility] 00:00:00 00:00:00 [facility] Smoking Status Start Date Stop Date Source Smokes tobacco daily 2016-05-01 00:00:00 [facility] Medications Ordered Filled Start [...] MOUTH THREE 00:00: TIMES DAILY 00 NEEDED carvedilol 2022-0 No 1mg 12.5 mg 7-12 [...] 00:00: orothiazide 00 25 mg tablet Dose 2022-0 No Unknown 5-26 00:00: 00 [...] capsule 00:00: 00 OXcarbazepi 2017-0 Yes 600mg Q.[id number] Take [address] [facility] [address] ne 2-23 [id number] mg by Yasir (TRILEPTAL) 10:23: 3D mouth 3 Med ical 600 [facility] 59 (three) Center tablet times daily. PARoxetine 2017-0 Yes 40mg QD Take [address] (PAXIL) 40 2-23 [facility] 10:23: nightly. [address] OXcarbazepi 2017-0 Yes 600mg Q.[id number] Take [address] [facility] [address] ne 2-23 [id number] [facility] (TR[facility]) 10:23: 3D mouth 3 Med ical 600 MG 59 (three) Center tablet times daily. PARoxetine 2017-0 Yes 40mg QD Take [address] (PAXIL) 40 2-23 [facility] 10:23: nightly. [address] OXcarbazepi 2017-0 Yes 600mg Q.[id number] Take [address] ne 2-23 [id number] [facility] (TRILEPTAL) 10:23: 3D mouth 3 Med ical 600 MG 59 (three) Center tablet times daily. PARoxetine 2017-0 Yes 40mg QD Take [address] (PAXIL) 40 2-23 [facility] 10:23: nightly. [address] OXcarbazepi 2017-0 Yes 600mg Q.[id number] Take [address] [address] ne 2-23 [id number] [facility] (TRILEPTAL) 10:23: 3D mouth 3 Med ical 600 MG 59 (three) Center tablet times daily. PARoxetine 2017-0 Yes 40mg QD Take [address] (PAXIL) 40 2-23 [facility] 10:23: nightly. [address] OXcarbazepi 2017-0 Yes 600mg Q.[id number] Take [address] ne 2-23 [id number] [facility] (TRILEPTAL) 10:23: 3D mouth 3 Med ical 600 MG 59 (three) Center tablet times daily. PARoxetine 2017-0 Yes 40mg QD Take [address] (PAXIL) 40 2-23 [facility] 10:23: nightly. [address] OXcarbazepi 2017-0 Yes 600mg Q.[id number] Take [address] ne 2-23 [id number] mg by [facility] (TRILEPTAL) 10:23: 3D mouth 3 Med ical 600 MG 59 (three) Center tablet times daily. OXcarbazepi 2017-0 Yes 600mg Q.[id number] Take [address] [facility] ne 2-23 [id number] [facility] (TRILEPTAL) 10:23: 3D mouth 3 Med ical 600 MG 59 (three) Center tablet times daily. PARoxetine 2017-0 Yes 40mg QD Take [address] (PAXIL) 40 2-23 [facility] 10:23: nightly. [address] OXcarbazepi 2017-0 Yes 600mg Q.[id number] Take [address] [facility] [address] ne 2-23 [id number] mg by [facility] (TRILEPTAL) 10:23: 3D mouth 3 Med ical 600 MG 59 (three) Center tablet times daily. PARoxetine 2017-0 Yes 40mg QD Take [address] (PAXIL) 40 2-23 [facility] 10:23: nightly. [address] PARoxetine 2017-0 Yes 40mg QD Take [address] (PAXIL) 40 2-23 [facility] tablet 10:23: nightly. [address] OXcarbazepi 2017-0 Yes 600mg Q.[id number] Take [address] ne 2-23 [id number] [facility] by [facility] (TRILEPTAL) 10:23: 3D mouth 3 Med ical 600 MG 59 (three) Center tablet times daily. PARoxetine 2017-0 Yes 40mg QD Take [address] (PAXIL) 40 2-23 [facility] 10:23: nightly. [address] OXcarbazepi 2017-0 Yes 600mg Q.[id number] Take [address] ne 2-23 [id number] [facility] by [facility] (TRILEPTAL) 10:23: 3D mouth 3 Med ical 600 MG 59 (three) Center tablet times daily. PARoxetine 2017-0 Yes 40mg QD Take [address] (PAXIL) 40 2-23 [facility] tablet 10:23: nightly. [address] OXcarbazepi 2017-0 Yes 600mg Q.[id number] Take [address] ne 2-23 [id number] mg by [facility] (TRILEPTAL) 10:23: 3D mouth 3 Med ical 600 MG 59 (three) Center tablet times daily. PARoxetine 2017-0 Yes 40mg QD Take [address] (PAXIL) 40 2-23 [facility] 10:23: nightly. [address] OXcarbazepi 2017-0 Yes 600mg Q.[id number] Take [address] ne 2-23 [id number] mg by [facility] (TRILEPTAL) 10:23: 3D mouth 3 Med ical 600 MG 59 (three) Center tablet times daily. PARoxetine 2017-0 Yes 40mg QD Take [address] (PAXIL) 40 2-23 [facility] 10:23: nightly. [address] OXcarbazepi 2017-0 Yes 600mg Q.[id number] Take [address] ne 2-23 [id number] mg by [facility] (TRILEPTAL) 10:23: 3D mouth 3 Med ical 600 MG 59 (three) Center tablet times daily. PARoxetine 2017-0 Yes 40mg QD Take [address] (PAXIL) 40 2-23 [facility] tablet 10:23: nightly. [address] 2017-0 Yes 600mg Q.[id number] Take [address] ne 2-23 [id number] mg by [facility] (TRILEPTAL) 10:23: 3D mouth 3 Med ical 600 MG 59 (three) Center tablet times daily. PARoxetine 2017-0 Yes 40mg QD Take [address] (PAXIL) 40 2-23 [facility] tablet 10:23: nightly. [address] OXcarbazepi 2017-0 Yes 600mg Q.[id number] Take [address] ne 2-23 [id number] mg by [facility] (TRILEPTAL) 10:23: 3D mouth 3 Med ical 600 MG 59 (three) Center tablet times daily. PARoxetine 2017-0 Yes 40mg QD Take [address] (PAXIL) 40 2-23 [facility] tablet 10:23: nightly. [address] OXcarbazepi 2017-0 Yes 600mg Q.[id number] Take [address] ne 2-23 [id number] mg by [facility] (TRILEPTAL) 10:23: 3D mouth 3 Med ical 600 MG 59 (three) Center tablet times daily. OXcarbazepi 2017-0 Yes 600mg Q.[id number] Take [address] ne 2-23 [id number] mg by [facility] (TRILEPTAL) 10:23: 3D mouth 3 Med ical 600 MG 59 (three) Center tablet times daily. PARoxetine 2017-0 Yes 40mg QD Take [address] (PAXIL) 40 2-23 [facility] tablet 10:23: nightly. [facility] [address] OXcarbazepi 2017-0 Yes 600mg Q.[id number] Take [address] ne 2-23 [id number] mg by [facility] (TRILEPTAL) 10:23: 3D mouth 3 Med ical 600 MG 59 (three) Center tablet times daily. PARoxetine 2017-0 Yes 40mg QD Take [address] (PAXIL) 40 2-23 by [facility] tablet 10:23: nightly. [facility] [address] OXcarbazepi 2017-0 Yes 600mg Q.[id number] Take [address] ne 2-23 [id number] mg by [facility] (TRILEPTAL) 10:23: 3D mouth 3 Med ical 600 MG 59 (three) Center tablet times daily. PARoxetine 2017-0 Yes 40mg QD Take [address] (PAXIL) 40 2-23 by [facility] tablet 10:23: nightly. [facility] [address] PARoxetine 2017-0 Yes 40mg QD Take [address] (PAXIL) 40 2-23 by [facility] tablet 10:23: nightly. [facility] [address] OXcarbazepi 2017-0 Yes 600mg Q.[id number] Take [address] ne 2-23 [id number] mg by [facility] (TRILEPTAL) 10:23: 3D mouth 3 Med ical 600 MG 59 (three) Center tablet times daily. PARoxetine 2017-0 Yes 40mg QD Take [address] (PAXIL) 40 2-23 [facility] tablet 10:23: nightly. [facility] [address] OXcarbazepi 2017-0 Yes 600mg Q.[id number] Take [address] ne 2-23 [id number] mg by [facility] (TRILEPTAL) 10:23: 3D mouth 3 Med ical 600 MG 59 (three) Center tablet times daily. PARoxetine 2017-0 Yes 40mg QD Take [address] (PAXIL) 40 2-23 by [facility] tablet 10:23: nightly. [address] OXcarbazepi 2017-0 Yes 600mg Q.[id number] Take [address] ne 2-23 [id number] mg by [facility] (TRILEPTAL) 10:23: 3D mouth 3 Med ical 600 MG 59 (three) Center tablet times daily. PARoxetine 2017-0 Yes 40mg QD Take [address] (PAXIL) 40 2-23 [facility] tablet 10:23: nightly. [address] OXcarbazepi 2017-0 Yes 600mg Q.[id number] Take [address] ne 2-23 [id number] mg by [facility] (TRILEPTAL) 10:23: 3D mouth 3 Med ical 600 MG 59 (three) Center tablet times daily. PARoxetine 2017-0 Yes 40mg QD Take [address] (PAXIL) 40 2-23 [facility] tablet 10:23: nightly. [address] 2017-0 Yes 600mg Q.[id number] Take [address] ne 2-23 [id number] mg by [facility] (TRILEPTAL) 10:23: 3D mouth 3 Med ical 600 MG 59 (three) Center tablet times daily. PARoxetine 2017-0 Yes 40mg QD Take [address] (PAXIL) 40 2-23 [facility] tablet 10:23: nightly. [address] OXcarbazepi 2017-0 Yes 600mg Q.[id number] Take [address] ne 2-23 [id number] mg by [facility] (TRILEPTAL) 10:23: 3D mouth 3 Med ical 600 MG 59 (three) Center tablet times daily. PARoxetine 2017-0 Yes 40mg QD Take [address] (PAXIL) 40 2-23 [facility] tablet 10:23: nightly. [address] OXcarbazepi 2017-0 Yes 600mg Q.[id number] Take [address] ne 2-23 [id number] mg by [facility] (TRILEPTAL) 10:23: 3D mouth 3 Med ical 600 MG 59 (three) Center tablet times daily. PARoxetine 2017-0 Yes 40mg QD Take [address] (PAXIL) 40 2-23 [facility] tablet 10:23: nightly. [address] OXcarbazepi 2017-0 Yes 600mg Q.[id number] Take [address] ne 2-23 [id number] mg by [facility] (TRILEPTAL) 10:23: 3D mouth 3 Med ical 600 MG 59 (three) Center tablet times daily. OXcarbazepi 2017-0 Yes 600mg Q.[id number] Take [address] ne 2-23 [id number] mg by [facility] (TRILEPTAL) 10:23: 3D mouth 3 Med ical 600 MG 59 (three) Center tablet times daily. PARoxetine 2017-0 Yes 40mg QD Take [address] (PAXIL) 40 2-23 by [facility] tablet 10:23: nightly. [address] OXcarbazepi 2017-0 Yes 600mg Q.[id number] Take [address] ne 2-23 [id number] mg by [facility] (TRILEPTAL) 10:23: 3D mouth 3 Med ical 600 MG 59 (three) Center tablet times daily. PARoxetine 2017-0 Yes 40mg QD Take [address] (PAXIL) 40 2-23 by [facility] tablet 10:23: nightly. [address] OXcarbazepi 2017-0 Yes 600mg Q.[id number] Take [address] ne 2-23 [id number] mg by [facility] (TRILEPTAL) 10:23: 3D mouth 3 Med ical 600 MG 59 (three) Center tablet times daily. PARoxetine 2017-0 Yes 40mg QD Take [address] (PAXIL) 40 2-23 by [facility] tablet 10:23: nightly. [address] OXcarbazepi 2017-0 Yes 600mg Q.[id number] Take [address] ne 2-23 [id number] mg by [facility] (TRILEPTAL) 10:23: 3D mouth 3 Med ical 600 MG 59 (three) Center tablet times daily. PARoxetine 2017-0 Yes 40mg QD Take [address] (PAXIL) 40 2-23 [facility] tablet 10:23: nightly. [address] PARoxetine 2017-0 Yes 40mg QD Take [address] (PAXIL) 40 2-23 [facility] tablet 10:23: nightly. [address] OXcarbazepi 2017-0 Yes 600mg Q.[id number] Take [address] ne 2-23 [id number] mg by [facility] (TRILEPTAL) 10:23: 3D mouth 3 Med ical 600 MG 59 (three) Center tablet times daily. PARoxetine 2017-0 Yes 40mg QD Take [address] (PAXIL) 40 2-23 by [facility] tablet 10:23: nightly. [address] OXcarbazepi 2017-0 Yes 600mg Q.[id number] Take [address] ne 2-23 [id number] mg by [facility] (TRILEPTAL) 10:23: 3D mouth 3 Med ical 600 MG 59 (three) Center tablet times daily. PARoxetine 2017-0 Yes 40mg QD Take [address] (PAXIL) 40 2-23 by [facility] tablet 10:23: nightly. [address] OXcarbazepi 2017-0 Yes 600mg Q.[id number] Take [address] ne 2-23 [id number] mg by [facility] (TRILEPTAL) 10:23: 3D mouth 3 Med ical 600 MG 59 (three) Center tablet times daily. PARoxetine 2017-0 Yes 40mg QD Take [address] (PAXIL) 40 2-23 [facility] tablet 10:23: nightly. [address] OXcarbazepi 2017-0 Yes 600mg Q.[id number] Take [address] ne 2-23 [id number] mg by [facility] (TRILEPTAL) 10:23: 3D mouth 3 Med ical 600 MG 59 (three) Center tablet times daily. PARoxetine 2017-0 Yes 40mg QD Take [address] (PAXIL) 40 2-23 by [facility] tablet 10:23: nightly. [address] OXcarbazepi 2017-0 Yes 600mg Q.[id number] Take [address] ne 2-23 [id number] mg by [facility] (TRILEPTAL) 10:23: 3D mouth 3 Med ical 600 MG 59 (three) Center tablet times daily. PARoxetine 2017-0 Yes 40mg QD Take [address] (PAXIL) 40 2-23 by [facility] tablet 10:23: nightly. [facility] [address] OXcarbazepi 2017-0 Yes 600mg Q.[id number] Take [address] ne 2-23 [id number] mg by [facility] (TRILEPTAL) 10:23: 3D mouth 3 Med ical 600 MG 59 (three) Center tablet times daily. PARoxetine 2017-0 Yes 40mg QD Take [address] (PAXIL) 40 2-23 by mouth [facility] tablet 10:23: nightly. [facility] [address] OXcarbazepi 2017-0 Yes 600mg Q.[id number] Take [address] ne 2-23 [id number] mg by [facility] (TRILEPTAL) 10:23: 3D mouth 3 Med ical 600 MG 59 (three) Center tablet times daily. PARoxetine 2017-0 Yes 40mg QD Take [address] (PAXIL) 40 2-23 by [facility] tablet 10:23: nightly. [facility] anjel[facility] [address] OXcarbazepi 2017-0 Yes 600mg Q.[id number] Take [address] ne 2-23 [id number] mg by [facility] (TRILEPTAL) 10:23: 3D mouth 3 Med ical 600 MG 59 (three) Center tablet times daily. OXcarbazepi 2017-0 Yes 600mg Q.[id number] Take [address] ne 2-23 [id number] mg by [facility] (TRILEPTAL) 10:23: 3D mouth 3 Med ical 600 MG 59 (three) Center tablet times daily. PARoxetine 2017-0 Yes 40mg QD Take [address] (PAXIL) 40 2-23 by mouth [facility] tablet 10:23: nightly. [facility] anjel[facility] [address] OXcarbazepi 2017-0 Yes 600mg Q.[id number] Take [address] ne 2-23 [id number] mg by [facility] (TRILEPTAL) 10:23: 3D mouth 3 Med ical 600 MG 59 (three) Center tablet times daily. PARoxetine 2017-0 Yes 40mg QD Take [address] (PAXIL) 40 2-23 by [facility] tablet 10:23: nightly. [address] OXcarbazepi 2017-0 Yes 600mg Q.[id number] Take [address] ne 2-23 [id number] mg by [facility] (TRILEPTAL) 10:23: 3D mouth 3 Med ical 600 MG 59 (three) Center tablet times daily. PARoxetine 2017-0 Yes 40mg QD Take [address] (PAXIL) 40 2-23 by [facility] tablet 10:23: nightly. [address] PARoxetine 2017-0 Yes 40mg QD Take [address] (PAXIL) 40 2-23 by [facility] tablet 10:23: nightly. [address] OXcarbazepi 2017-0 Yes 600mg Q.[id number] Take [address] ne 2-23 [id number] mg by [facility] (TRILEPTAL) 10:23: 3D mouth 3 Med ical 600 MG 59 (three) Center tablet times daily. PARoxetine 2017-0 Yes 40mg QD Take [address] (PAXIL) 40 2-23 by [facility] tablet 10:23: nightly. [address] OXcarbazepi 2017-0 Yes 600mg Q.[id number] Take [address] ne 2-23 [id number] mg by [facility] (TRILEPTAL) 10:23: 3D mouth 3 Med ical 600 MG 59 (three) Center tablet times daily. PARoxetine 2017-0 Yes 40mg QD Take [address] (PAXIL) 40 2-23 [facility] tablet 10:23: nightly. [address] LORazepam 2017-0 Yes 1mg Take 1 [...] Goal Plan of Care Note [code = 66529-9] Goal Plan of Care Note [code = 78393-0] Goal Plan of Care Note [code = 05448-4] Goal Plan of Care Note [code = 96065-9] Goal Plan of Care Note [code = 83798-0] Goal Plan of Care Note [code = 75239-8] Goal Plan of Care Note [code = 64422-2] Goal Plan of Care Note [code = 00035-3] Goal Plan of Care Note [code = 99302-7] Goal Plan of Care Note [code = 38889-9] Goal Plan of Care Note [code = 99934-5] Goal Plan of Care Note [code = 87441-9] Goal Plan of Care Note [code = 85298-7] Goal Plan of Care Note [code = 89698-5] Goal Plan of Care Note [code = 64937-8] Goal Plan of Care Note [code = 84941-5] Goal Plan of Care Note [code = 99621-3] Goal Plan of Care Note [code = 12594-4] Goal Plan of Care Note [code = 80510-1] Goal Plan of Care Note [code = 88272-3] Goal Plan of Care Note [code = 12262-1] Goal Plan of Care Note [code = 44327-4] Goal Plan of Care Note [code = 46276-7] Goal Plan of Care Note [code = 53842-2] Goal Plan of Care Note [code = 67058-4] Goal Plan of Care Note [code = 89919-3] Goal Plan of Care Note [code = 97510-6] Goal Plan of Care Note [code = 26217-0] Goal Plan of Care Note [code = 26522-2] Goal Plan of Care Note [code = 79698-4] Goal Plan of Care Note [code = 39225-0] Goal Plan of Care Note [code = 91857-1] Goal Plan of Care Note [code = 06550-2] Goal Plan of Care Note [code = 15384-3] Goal Plan of Care Note [code = 22497-7] Goal Plan of Care Note [code = 72598-9] Goal Plan of Care Note [code = 26262-1] Goal Plan of Care Note [code = 58582-1] Goal Plan of Care Note [code = 20324-3] Goal Plan of Care Note [code = 25630-4] Goal Plan of Care Note [code = 72012-9] Goal Plan of Care Note [code = 67310-6] Goal Plan of Care Note [code = 15560-3] Goal Plan of Care Note [code = 91870-8] Goal Plan of Care Note [code = 64695-2] Goal Plan of Care Note [code = 91621-4] Goal Plan of Care Note [code = 56548-2] Goal Plan of Care Note [code = 34005-0] Goal Plan of Care Note [code = 33489-2] Goal Plan of Care Note [code = 32168-8] Goal Plan of Care Note [code = 86000-1] Goal Plan of Care Note [code = 28496-4] Goal Plan of Care Note [code = 44379-8] Goal Plan of Care Note [code = 77070-6] Goal Plan of Care Note [code = 57601-8] Goal Plan of Care Note [code = 33046-6] Goal Plan of Care Note [code = 98394-4] Goal Plan of Care Note [code = 36058-4] Goal Plan of Care Note [code = 68729-6] Goal Plan of Care Note [code = 94054-4] Goal Plan of Care Note [code = 24539-7] Goal Plan of Care Note [code = 60233-3] Goal Plan of Care Note [code = 68299-1] Goal Plan of Care Note [code = 46172-3] Goal Plan of Care Note [code = 56045-6] Goal Plan of Care Note [code = 59540-5] Goal Plan of Care Note [code = 57828-8] Goal Plan of Care Note [code = 64334-2] Goal Plan of Care Note [code = 33331-4] Goal Plan of Care Note [code = 96016-6] Goal Plan of Care Note [code = 60580-9] Goal Plan of Care Note [code = 11443-4] Goal Plan of Care Note [code = 23074-8] Goal Plan of Care Note [code = 30716-7] Goal Plan of Care Note [code = 71266-3] Goal Plan of Care Note [code = 28682-3] Goal Plan of Care Note [code = 73038-0] Goal Plan of Care Note [code = 39091-3] Goal Plan of Care Note [code = 24373-9] Goal Plan of Care Note [code = 39823-6] Goal Plan of Care Note [code = 62895-6] Goal Plan of Care Note [code = 55702-0] Goal Plan of Care Note [code = 81957-2] Goal Plan of Care Note [code = 83707-1] Goal Plan of Care Note [code = 31178-2] Goal Plan of Care Note [code = 01146-8] Goal Plan of Care Note [code = 07638-7] Goal Plan of Care Note [code = 75523-2] Goal Plan of Care Note [code = 95981-1] Goal Plan of Care Note [code = 56712-1] Goal Plan of Care Note [code = 48695-3] Goal Plan of Care Note [code = 10506-5] Goal Plan of Care Note [code = 53514-3] Goal Plan of Care Note [code = 99749-0] Goal Plan of Care Note [code = 70044-6] Goal Plan of Care Note [code = 85452-4] Goal Plan of Care Note [code = 64152-3] Goal Plan of Care Note [code = 18041-8] Goal Plan of Care Note [code = 11309-6] Goal Plan of Care Note [code = 43185-4] Goal Plan of Care Note [code = 93346-4] Goal Plan of Care Note [code = 21990-3] Goal Plan of Care Note [code = 95206-7] Goal Plan of Care Note [code = 94492-5] Goal Plan of Care Note [code = 49070-0] Goal Plan of Care Note [code = 26635-2] Goal Plan of Care Note [code = 72927-1] Goal Plan of Care Note [code = 73031-7] Goal Plan of Care Note [code = 80027-9] Goal Plan of Care Note [code = 47822-2] Goal Plan of Care Note [code = 63773-0] Goal Plan of Care Note [code = 99378-8] Goal Plan of Care Note [code = 84221-9] Goal Plan of Care Note [code = 12413-4] Goal Plan of Care Note [code = 88100-5] Goal Plan of Care Note [code = 94049-8] Goal Plan of Care Note [code = 90296-9] Goal Plan of Care Note [code = 29277-8] Goal Plan of Care Note [code = 89191-7] Goal Plan of Care Note [code = 20657-4] Goal Plan of Care Note [code = 12245-2] Goal Plan of Care Note [code = 22913-8] Goal Plan of Care Note [code = 02987-7] Goal Plan of Care Note [code = 52894-7] Goal Plan of Care Note [code = 89922-2] Goal Plan of Care Note [code = 67887-8] Goal Plan of Care Note [code = 25814-9] Goal Plan of Care Note [code = 36254-9] Goal Plan of Care Note [code = 51872-3] Goal Plan of Care Note [code = 68314-9] Goal Plan of Care Note [code = 86726-5] Goal Plan of Care Note [code = 46446-1] Goal Plan of Care Note [code = 95406-6] Goal Plan of Care Note [code = 84529-0] Goal Plan of Care Note [code = 90903-2] Goal Plan of Care Note [code = 23951-1] Goal Plan of Care Note [code = 18279-4] Goal Plan of Care Note [code = 59976-9] Goal Plan of Care Note [code = 07822-9] Goal Plan of Care Note [code = 51412-4] Goal Plan of Care Note [code = 79507-4] Goal Plan of Care Note [code = 93926-6] Goal Plan of Care Note [code = 86927-0] Goal Plan of Care Note [code = 00645-4] Goal Plan of Care Note [code = 31108-5] Goal Plan of Care Note [code = 54626-3] Goal Plan of Care Note [code = 58944-0] Goal Plan of Care Note [code = 24273-1] Goal Plan of Care Note [code = 63761-1] Goal Plan of Care Note [code = 06635-8] Goal Plan of Care Note [code = 87224-4] Goal Plan of Care Note [code = 81151-4] Goal Plan of Care Note [code = 51149-7] Goal Plan of Care Note [code = 66733-8] Goal Plan of Care Note [code = 67909-3] Goal Plan of Care Note [code = 03681-7] Goal Plan of Care Note [code = 14981-1] Goal Plan of Care Note [code = 39942-1] Goal Plan of Care Note [code = 10186-5] Goal Plan of Care Note [code = 91254-8] Goal Plan of Care Note [code = 32811-7] Goal Plan of Care Note [code = 88874-1] Goal Plan of Care Note [code = 32686-9] Goal Plan of Care Note [code = 22205-7] Goal Plan of Care Note [code = 56841-2] Goal Plan of Care Note [code = 49344-4] Goal Plan of Care Note [code = 28694-3] Goal Plan of Care Note [code = 01954-1] Goal Plan of Care Note [code = 12826-3] Goal Plan of Care Note [code = 10915-6] Goal Plan of Care Note [code = 28238-3] Goal Plan of Care Note [code = 07924-1] Goal Plan of Care Note [code = 43241-5] Goal Plan of Care Note [code = 87786-8] Goal Plan of Care Note [code = 85711-5] Goal Plan of Care Note [code = 82717-5] Goal Plan of Care Note [code = 95066-7] Goal Plan of Care Note [code = 53991-7] Goal Plan of Care Note [code = 80005-7] Goal Plan of Care Note [code = 89344-4] Goal Plan of Care Note [code = 90254-5] Goal Plan of Care Note [code = 17030-9] Goal Plan of Care Note [code = 06935-0] Goal Plan of Care Note [code = 43898-1] Goal Plan of Care Note [code = 41995-3] Goal Plan of Care Note [code = 21168-4] Goal Plan of Care Note [code = 19515-9] Goal Plan of Care Note [code = 03727-6] Goal Plan of Care Note [code = 45347-5] Goal Plan of Care Note [code = 46229-7] Goal Plan of Care Note [code = 11814-7] Goal Plan of Care Note [code = 93103-2] Goal Plan of Care Note [code = 13058-9] Goal Plan of Care Note [code = 94589-8] Goal Plan of Care Note [code = 43130-0] Goal Plan of Care Note [code = 97031-9] Goal Plan of Care Note [code = 47603-8] Goal Plan of Care Note [code = 12183-8] Goal Plan of Care Note [code = 28743-0] Goal Plan of Care Note [code = 00648-8] Goal Plan of Care Note [code = 18163-7] Goal Plan of Care Note [code = 42872-4] Goal Plan of Care Note [code = 06116-6] Goal Plan of Care Note [code = 46111-5] Goal Plan of Care Note [code = 25060-8] Goal Plan of Care Note [code = 62536-0] Goal Plan of Care Note [code = 75989-9] Goal Plan of Care Note [code = 16821-9] Encounters Start End Encounter Admission Attending Care Care Encounter Source Date/Time Date/Time Type Type Clinicians Facility Department ID 2021-06-01 Outpatient [facility] [id number] [place] 01:36:29 [id number] [facility] 2022-05-24 2022-05-24 Outpatient [facility] [id number] Cristian 10:36:59 10:36:59 0318 F Jerman 2022-02-11 2022-02-11 Outpatient [facility] SFA [id number] Cristian 09:04:48 09:04:48 1206 F Jerman 2022-02-10 2022-02-10 Outpatient [facility] SFA [id number] Cristian 09:29:34 09:29:34 1205 F Jerman 2022-02-10 2022-02-10 Outpatient [id number] 00:00:00 00:00:00 Visit 4089-4cab 089-4cab-9 -6xj0-n0t [id number] 2022-01-10 2022-01-10 Outpatient [facility] SFA [id number] Cristian 09:16:14 09:16:14 1104 F Jerman 2022-01-10 2022-01-10 Outpatient [id number] 00:00:00 00:00:00 Visit aca9-4c83 ca9-4c83-a -e2mw-xj7 7eb-bc13f3 [id number] 2021-12-19 2021-12-19 Outpatient [facility] [id number] Cristian 16:11:31 16:11:31 1013 F Jerman 2021-12-19 2021-12-19 Outpatient [id number] 00:00:00 00:00:00 Visit [id number] -adae-62b amelia-62bace [id number] 2021-09-17 2021-09-17 Outpatient fjy8gblc- [id number]-[id number] 00:00:00 00:00:00 Visit [id number] 35a-[id number]-b -r38q-j7a [id number] 2020-08-03 2020-08-03 Outpatient MATT VÁSQUEZ [facility] [id number] [facility] 10:00:00 10:00:00 MATT SIMPSON [facility] 2020-07-25 2020-07-25 Orders Doctor FISH [id number] 00:00:00 00:00:00 Only Unassigned, BK 350.1.13.10 [facility] [id number] [id number] 2019-09-26 2019-09-26 Outpatient R RAGHU, [facility] [id number] Univers 16:00:00 16:00:00 WALLY yeager [facility] 2018-10-21 2018-10-21 Telephone Gramm, [facility] [id number] 00:00:00 00:00:00 Natacha Nguyen 350.1.13.10 [place] 4.2.7.2.686 [place] [id number] [facility] 204 Building Results Test Description Test Time Test Comments Results Result Comments Source TSH, THIRD GENERATION 2022-05-26 02:57:49 Test Item Value Reference Range Interpretation Comme nts TSH, THIRD GENERATION (test code = 2821) 6.350 UIU/ML 0.400-4.100 H LIPID [id number] 01:09:34 Test Item Value Reference Range Interpretation [...] MOREINFORMATION , SEE CLIENT ANNOUNCE MENT AT [email or web address] [email or web address] LDL/HDL 2.73 RATIO <3.22 [facility] has important (test code = 2238) pathology staff changes effecti ve 05/07/2022. New pathology staff will provide uninter rupted, excellent patie nt care and clinical consultation. S ee URL: [email or web address] UNLES S OTHERWISE INDIC ATED, ALL TESTING PER FORMED AT [facility] [employer], [address] [place] [address] ISIDRA SUH DIRECTOR: Andrew WHITLEY CONNOR NUMBER [id number] CAP ACCREDITATION N O. [id number] HEMOGLOBIN [id number] 03:17:24 Test Item Value Reference Range Interpretation Comments HEMOGLOBIN A1c (test 6.4 % 4.2-5.6 H AMERIC AN DIABETES code = 07267) [facility] IDELINES FOR HGB A1C: PREDIABETES/INC REASED RISK [...] TESTING OR LABORATORY C ONSULTATION. TSH, THIRD [id number] 05:15:49 Test Item Value Reference Range Interpretation Comments TSH, THIRD GENERATION (test code 2.080 UIU/ML 0.400-4.100 = 2821) HEMOGLOBIN [id number] 03:46:00 Test Item Value Reference Range Interpretation Comments HEMOGLOBIN A1c (test 6.6 % 4.2-5.6 H AMERIC AN DIABETES code = 71335) [facility] IDELINES FOR HGB A1C: PREDIABETES/INC REASED [...] INDICATED, ALL TESTING PER FORMED ATCLINICAL PATH [employer], [place]. [address] [place] [address] LABORATORY DIRE CTOR: DIANA RUSS M.D. ESTEBAN NUMBER [id number] [facility] [place]. [id number] LIPID [id number] 02:59:52 Test Item Value Reference Range Interpretation [...] MOREINFORMATION , SEE CLIENT ANNOUNCE MENT AT [email or web address] [email or web address] RATIO LDL/HDL 4.02 RATIO <3.22 H (test code = 2238) [id number] 00:00:00 Test Item Value Reference Range Interpretation Comments TSH, THIRD GENERATION (test code 2.080 UIU/ML = 2821) [id number] 00:00:00 Test Item Value Reference Range Interpretation Comments TSH, THIRD GENERATION (test code 2.080 UIU/ML = 2821) [id number] 00:00:00 Test Item Value Reference Range Interpretation Comments TSH, THIRD GENERATION (test code 2.080 UIU/ML = 2821) LIPID [id number] 00:00:00 Test Item Value Reference Range Interpretation Comments CHOLESTEROL (test code = 2210) 292 MG/DL TRIGLYCERIDES (test code = 2232) 184 MG/DL HDL CHOLESTEROL (test code = 2220) 51 MG/DL CALC LDL CHOL (test code = 2237) 205 MG/DL RISK RATIO LDL/HDL (test code = 4.02 RATIO 2238) LIPID [id number] 00:00:00 Test Item Value Reference Range Interpretation Comments CHOLESTEROL (test code = 2210) 292 MG/DL TRIGLYCERIDES (test code = 2232) 184 MG/DL HDL CHOLESTEROL (test code = 2220) 51 MG/DL CALC LDL CHOL (test code = 2237) 205 MG/DL RISK RATIO LDL/HDL (test code = 4.02 RATIO 2238) HEMOGLOBIN [id number] 00:00:00 Test Item Value Reference Range Interpretation Comments HEMOGLOBIN A1c (test code = 45982) 6.6 % HEMOGLOBIN [id number] 00:00:00 Test Item Value Reference Range Interpretation Comments HEMOGLOBIN A1c (test code = 15146) 6.6 % HEMOGLOBIN [id number] 00:00:00 Test Item Value Reference Range Interpretation Comments HEMOGLOBIN A1c (test code = 71350) 6.6 % [id number] 00:00:00 Test Item Value Reference Range Interpretation Comments TSH, THIRD GENERATION (test code 2.080 UIU/ML = 2821) [id number] 00:00:00 Test Item Value Reference Range Interpretation Comments TSH, THIRD GENERATION (test code 2.080 UIU/ML = 2821) [id number] 00:00:00 Test Item Value Reference Range Interpretation Comments TSH, THIRD GENERATION (test code 2.080 UIU/ML = 2821) LIPID [id number] 00:00:00 Test Item Value Reference Range Interpretation Comments CHOLESTEROL (test code = 2210) 292 MG/DL TRIGLYCERIDES (test code = 2232) 184 MG/DL HDL CHOLESTEROL (test code = 2220) 51 MG/DL CALC LDL CHOL (test code = 2237) 205 MG/DL RISK RATIO LDL/HDL (test code = 4.02 RATIO 2238) LIPID [id number] 00:00:00 Test Item Value Reference Range Interpretation Comments CHOLESTEROL (test code = 2210) 292 MG/DL TRIGLYCERIDES (test code = 2232) 184 MG/DL HDL CHOLESTEROL (test code = 2220) 51 MG/DL CALC LDL CHOL (test code = 2237) 205 MG/DL RISK RATIO LDL/HDL (test code = 4.02 RATIO 2238) HEMOGLOBIN [id number] 00:00:00 Test Item Value Reference Range Interpretation Comments HEMOGLOBIN A1c (test code = 23910) 6.6 % HEMOGLOBIN [id number] 00:00:00 Test Item Value Reference Range Interpretation Comments HEMOGLOBIN A1c (test code = 41495) 6.6 % HEMOGLOBIN [id number] 00:00:00 Test Item Value Reference Range Interpretation Comments HEMOGLOBIN A1c (test code = 72141) 6.6 % [id number] 00:00:00 Test Item Value Reference Range Interpretation Comments TSH, THIRD GENERATION (test code 2.080 UIU/ML = 2821) [id number] 00:00:00 Test Item Value Reference Range Interpretation Comments TSH, THIRD GENERATION (test code 2.080 UIU/ML = 2821) LIPID [id number] 00:00:00 Test Item Value Reference Range Interpretation Comments CHOLESTEROL (test code = 2210) 292 MG/DL TRIGLYCERIDES (test code = 2232) 184 MG/DL HDL CHOLESTEROL (test code = 2220) 51 MG/DL CALC LDL CHOL (test code = 2237) 205 MG/DL RISK RATIO LDL/HDL (test code = 4.02 RATIO 2238) HEMOGLOBIN [id number] 00:00:00 Test Item Value Reference Range Interpretation Comments HEMOGLOBIN A1c (test code = 37387) 6.6 % HEMOGLOBIN [id number] 00:00:00 Test Item Value Reference Range Interpretation Comments HEMOGLOBIN A1c (test code = 63582) 6.6 % [id number] 00:00:00 Test Item Value Reference Range Interpretation Comments TSH, THIRD GENERATION (test code 2.080 UIU/ML = 2821) [id number] 00:00:00 Test Item Value Reference Range Interpretation Comments TSH, THIRD GENERATION (test code 2.080 UIU/ML = 2821) [id number] 00:00:00 Test Item Value Reference Range Interpretation Comments TSH, THIRD GENERATION (test code 2.080 UIU/ML = 2821) LIPID [id number] 00:00:00 Test Item Value Reference Range Interpretation Comments CHOLESTEROL (test code = 2210) 292 MG/DL TRIGLYCERIDES (test code = 2232) 184 MG/DL HDL CHOLESTEROL (test code = 2220) 51 MG/DL CALC LDL CHOL (test code = 2237) 205 MG/DL RISK RATIO LDL/HDL (test code = 4.02 RATIO 2238) LIPID [id number] 00:00:00 Test Item Value Reference Range Interpretation Comments CHOLESTEROL (test code = 2210) 292 MG/DL TRIGLYCERIDES (test code = 2232) 184 MG/DL HDL CHOLESTEROL (test code = 2220) 51 MG/DL CALC LDL CHOL (test code = 2237) 205 MG/DL RISK RATIO LDL/HDL (test code = 4.02 RATIO 2238) HEMOGLOBIN [id number] 00:00:00 Test Item Value Reference Range Interpretation Comments HEMOGLOBIN A1c (test code = 28160) 6.6 % HEMOGLOBIN [id number] 00:00:00 Test Item Value Reference Range Interpretation Comments HEMOGLOBIN A1c (test code = 06019) 6.6 % HEMOGLOBIN [id number] 00:00:00 Test Item Value Reference Range Interpretation Comments HEMOGLOBIN A1c (test code = 62503) 6.6 % HEMOGLOBIN [id number] 00:00:00 Test Item Value Reference Range Interpretation Comments HEMOGLOBIN A1c (test code = 16655) 6.8 % HEMOGLOBIN [id number] 00:00:00 Test Item Value Reference Range Interpretation Comments HEMOGLOBIN A1c (test code = 15380) 6.8 % HEMOGLOBIN [id number] 00:00:00 Test Item Value Reference Range Interpretation Comments HEMOGLOBIN A1c (test code = 95686) 6.8 % LIPID [id number] 00:00:00 Test Item Value Reference Range Interpretation Comments CHOLESTEROL (test code = 2210) 303 MG/DL TRIGLYCERIDES (test code = 2232) 191 MG/DL HDL CHOLESTEROL (test code = 2220) 61 MG/DL CALC LDL CHOL (test code = 2237) 205 MG/DL RISK RATIO LDL/HDL (test code = 3.36 RATIO 2238) LIPID [id number] 00:00:00 Test Item Value Reference Range Interpretation Comments CHOLESTEROL (test code = 2210) 303 MG/DL TRIGLYCERIDES (test code = 2232) 191 MG/DL HDL CHOLESTEROL (test code = 2220) 61 MG/DL CALC LDL CHOL (test code = 2237) 205 MG/DL RISK RATIO LDL/HDL (test code = 3.36 RATIO 2238) [id number] 00:00:00 Test Item Value Reference Range Interpretation Comments TSH, THIRD GENERATION (test code 0.769 UIU/ML = 2821) [id number] 00:00:00 Test Item Value Reference Range Interpretation Comments TSH, THIRD GENERATION (test code 0.769 UIU/ML = 2821) [id number] 00:00:00 Test Item Value Reference Range Interpretation Comments TSH, THIRD GENERATION (test code 0.769 UIU/ML = 2821) COMPREHENSIVE METABOLIC [id number] 00:00:00 Test Item Value Reference Range Interpretation Comments GLUCOSE (test code = 2217) 131 MG/DL BUN (test code = 2208) 13 MG/DL CREATININE (test code = 2214) 0.65 MG/DL eGFR AMER. (test code 113 ML/MIN/1.73 = 42245) eGFR NON- AMER. (test 97 ML/MIN/1.73 code = 98048) CALC BUN/CREAT (test code = 20 RATIO [...] code = 2219) 23 U/L COMPREHENSIVE METABOLIC [id number] 00:00:00 Test Item Value Reference Range Interpretation Comments GLUCOSE (test code = 2217) 131 MG/DL BUN (test code = 2208) 13 MG/DL CREATININE (test code = 2214) 0.65 MG/DL eGFR AMER. (test code 113 ML/MIN/1.73 = 08142) eGFR NON- AMER. (test 97 ML/MIN/1.73 code = 95225) CALC BUN/CREAT (test code = 20 RATIO [...] (test code = 2219) 23 U/L HEMOGLOBIN [id number] 00:00:00 Test Item Value Reference Range Interpretation Comments HEMOGLOBIN A1c (test code = 26410) 6.8 % HEMOGLOBIN [id number] 00:00:00 Test Item Value Reference Range Interpretation Comments HEMOGLOBIN A1c (test code = 02215) 6.8 % HEMOGLOBIN [id number] 00:00:00 Test Item Value Reference Range Interpretation Comments HEMOGLOBIN A1c (test code = 03728) 6.8 % LIPID [id number] 00:00:00 Test Item Value Reference Range Interpretation Comments CHOLESTEROL (test code = 2210) 303 MG/DL TRIGLYCERIDES (test code = 2232) 191 MG/DL HDL CHOLESTEROL (test code = 2220) 61 MG/DL CALC LDL CHOL (test code = 2237) 205 MG/DL RISK RATIO LDL/HDL (test code = 3.36 RATIO 2238) LIPID [id number] 00:00:00 Test Item Value Reference Range Interpretation Comments CHOLESTEROL (test code = 2210) 303 MG/DL TRIGLYCERIDES (test code = 2232) 191 MG/DL HDL CHOLESTEROL (test code = 2220) 61 MG/DL CALC LDL CHOL (test code = 2237) 205 MG/DL RISK RATIO LDL/HDL (test code = 3.36 RATIO 2238) [id number] 00:00:00 Test Item Value Reference Range Interpretation Comments TSH, THIRD GENERATION (test code 0.769 UIU/ML = 2821) [id number] 00:00:00 Test Item Value Reference Range Interpretation Comments TSH, THIRD GENERATION (test code 0.769 UIU/ML = 2821) [id number] 00:00:00 Test Item Value Reference Range Interpretation Comments TSH, THIRD GENERATION (test code 0.769 UIU/ML = 2821) COMPREHENSIVE METABOLIC [id number] 00:00:00 Test Item Value Reference Range Interpretation Comments GLUCOSE (test code = 2217) 131 MG/DL BUN (test code = 2208) 13 MG/DL CREATININE (test code = 2214) 0.65 MG/DL eGFR AMER. (test code 113 ML/MIN/1.73 = 27387) eGFR NON- AMER. (test 97 ML/MIN/1.73 code = 58829) CALC BUN/CREAT (test code = 20 RATIO [...] code = 2219) 23 U/L COMPREHENSIVE METABOLIC [id number] 00:00:00 Test Item Value Reference Range Interpretation Comments GLUCOSE (test code = 2217) 131 MG/DL BUN (test code = 2208) 13 MG/DL CREATININE (test code = 2214) 0.65 MG/DL eGFR AMER. (test code 113 ML/MIN/1.73 = 12768) eGFR NON- AMER. (test 97 ML/MIN/1.73 code = 78788) CALC BUN/CREAT (test code = 20 RATIO [...] (test code = 2219) 23 U/L HEMOGLOBIN [id number] 00:00:00 Test Item Value Reference Range Interpretation Comments HEMOGLOBIN A1c (test code = 33682) 6.8 % HEMOGLOBIN [id number] 00:00:00 Test Item Value Reference Range Interpretation Comments HEMOGLOBIN A1c (test code = 58032) 6.8 % LIPID [id number] 00:00:00 Test Item Value Reference Range Interpretation Comments CHOLESTEROL (test code = 2210) 303 MG/DL TRIGLYCERIDES (test code = 2232) 191 MG/DL HDL CHOLESTEROL (test code = 2220) 61 MG/DL CALC LDL CHOL (test code = 2237) 205 MG/DL RISK RATIO LDL/HDL (test code = 3.36 RATIO 2238) [id number] 00:00:00 Test Item Value Reference Range Interpretation Comments TSH, THIRD GENERATION (test code 0.769 UIU/ML = 2821) [id number] 00:00:00 Test Item Value Reference Range Interpretation Comments TSH, THIRD GENERATION (test code 0.769 UIU/ML = 2821) COMPREHENSIVE METABOLIC [id number] 00:00:00 Test Item Value Reference Range Interpretation Comments GLUCOSE (test code = 2217) 131 MG/DL BUN (test code = 2208) 13 MG/DL CREATININE (test code = 2214) 0.65 MG/DL eGFR AMER. (test code 113 ML/MIN/1.73 = 28550) eGFR NON- AMER. (test 97 ML/MIN/1.73 code = 58346) CALC BUN/CREAT (test code = 20 RATIO [...] (test code = 2219) 23 U/L HEMOGLOBIN [id number] 00:00:00 Test Item Value Reference Range Interpretation Comments HEMOGLOBIN A1c (test code = 12619) 6.8 % HEMOGLOBIN [id number] 00:00:00 Test Item Value Reference Range Interpretation Comments HEMOGLOBIN A1c (test code = 44517) 6.8 % HEMOGLOBIN [id number] 00:00:00 Test Item Value Reference Range Interpretation Comments HEMOGLOBIN A1c (test code = 13132) 6.8 % LIPID [id number] 00:00:00 Test Item Value Reference Range Interpretation Comments CHOLESTEROL (test code = 2210) 303 MG/DL TRIGLYCERIDES (test code = 2232) 191 MG/DL HDL CHOLESTEROL (test code = 2220) 61 MG/DL CALC LDL CHOL (test code = 2237) 205 MG/DL RISK RATIO LDL/HDL (test code = 3.36 RATIO 2238) LIPID [id number] 00:00:00 Test Item Value Reference Range Interpretation Comments CHOLESTEROL (test code = 2210) 303 MG/DL TRIGLYCERIDES (test code = 2232) 191 MG/DL HDL CHOLESTEROL (test code = 2220) 61 MG/DL CALC LDL CHOL (test code = 2237) 205 MG/DL RISK RATIO LDL/HDL (test code = 3.36 RATIO 2238) [id number] 00:00:00 Test Item Value Reference Range Interpretation Comments TSH, THIRD GENERATION (test code 0.769 UIU/ML = 2821) [id number] 00:00:00 Test Item Value Reference Range Interpretation Comments TSH, THIRD GENERATION (test code 0.769 UIU/ML = 2821) [id number] 00:00:00 Test Item Value Reference Range Interpretation Comments TSH, THIRD GENERATION (test code 0.769 UIU/ML = 2821) COMPREHENSIVE METABOLIC [id number] 00:00:00 Test Item Value Reference Range Interpretation Comments GLUCOSE (test code = 2217) 131 MG/DL BUN (test code = 2208) 13 MG/DL CREATININE (test code = 2214) 0.65 MG/DL eGFR AMER. (test code 113 ML/MIN/1.73 = 34555) eGFR NON- AMER. (test 97 ML/MIN/1.73 code = 58010) CALC BUN/CREAT (test code = 20 RATIO [...] code = 2219) 23 U/L COMPREHENSIVE METABOLIC [id number] 00:00:00 Test Item Value Reference Range Interpretation Comments GLUCOSE (test code = 2217) 131 MG/DL BUN (test code = 2208) 13 MG/DL CREATININE (test code = 2214) 0.65 MG/DL eGFR AMER. (test code 113 ML/MIN/1.73 = 55081) eGFR NON- AMER. (test 97 ML/MIN/1.73 code = 33976) CALC BUN/CREAT (test code = 20 RATIO [...] (test code = 2219) 23 U/L HEMOGLOBIN [id number] 00:00:00 Test Item Value Reference Range Interpretation Comments HEMOGLOBIN A1c (test code = 08191) 6.6 % HEMOGLOBIN [id number] 00:00:00 Test Item Value Reference Range Interpretation Comments HEMOGLOBIN A1c (test code = 58291) 6.6 % HEMOGLOBIN [id number] 00:00:00 Test Item Value Reference Range Interpretation Comments HEMOGLOBIN A1c (test code = 57746) 6.6 % LIPID [id number] 00:00:00 Test Item Value Reference Range Interpretation Comments CHOLESTEROL (test code = 2210) 261 MG/DL TRIGLYCERIDES (test code = 2232) 159 MG/DL HDL CHOLESTEROL (test code = 2220) 82 MG/DL CALC LDL CHOL (test code = 2237) 150 MG/DL RISK RATIO LDL/HDL (test code = 1.83 RATIO 2238) LIPID [id number] 00:00:00 Test Item Value Reference Range Interpretation Comments CHOLESTEROL (test code = 2210) 261 MG/DL TRIGLYCERIDES (test code = 2232) 159 MG/DL HDL CHOLESTEROL (test code = 2220) 82 MG/DL CALC LDL CHOL (test code = 2237) 150 MG/DL RISK RATIO LDL/HDL (test code = 1.83 RATIO 2238) COMPREHENSIVE METABOLIC [id number] 00:00:00 Test Item Value Reference Range Interpretation Comments GLUCOSE (test code = 2217) 144 MG/DL BUN (test code = 2208) 15 MG/DL CREATININE (test code = 2214) 0.85 MG/DL eGFR AMER. (test code 87 ML/MIN/1.73 = 97763) eGFR NON- AMER. (test 75 ML/MIN/1.73 code = 60859) CALC BUN/CREAT (test code = 18 RATIO [...] code = 2219) 50 U/L COMPREHENSIVE METABOLIC [id number] 00:00:00 Test Item Value Reference Range Interpretation Comments GLUCOSE (test code = 2217) 144 MG/DL BUN (test code = 2208) 15 MG/DL CREATININE (test code = 2214) 0.85 MG/DL eGFR AMER. (test code 87 ML/MIN/1.73 = 81896) eGFR NON- AMER. (test 75 ML/MIN/1.73 code = 50740) CALC BUN/CREAT (test code = 18 RATIO [...] THYROX. BIND. CAPAC. (test code 1.1 = 44786) T4 (THYROXINE) (test code = 4.3 UG/DL 281) CORRECTED T4 (FTI) (test code = 3.9 UG/DL 2820) TSH, THIRD GENERATION (test 18.900 UIU/ML code = 2821) THYROID II PROFILE (T3U, T4, T7, TSH)[id number] 00:00:00 Test Item Value Reference Range Interpretation Comments T-UPTAKE (test code = 2817) 30.2 % THYROX. BIND. CAPAC. (test code 1.1 = 30987) T4 (THYROXINE) (test code = 4.3 UG/DL 2819) CORRECTED T4 (FTI) (test code = 3.9 UG/DL 2820) TSH, THIRD GENERATION (test 18.900 UIU/ML code = 2821) HEMOGLOBIN [id number] 00:00:00 Test Item Value Reference Range Interpretation Comments HEMOGLOBIN A1c (test code = 18807) 6.6 % HEMOGLOBIN [id number] 00:00:00 Test Item Value Reference Range Interpretation Comments HEMOGLOBIN A1c (test code = 22694) 6.6 % HEMOGLOBIN [id number] 00:00:00 Test Item Value Reference Range Interpretation Comments HEMOGLOBIN A1c (test code = 21504) 6.6 % LIPID [id number] 00:00:00 Test Item Value Reference Range Interpretation Comments CHOLESTEROL (test code = 2210) 261 MG/DL TRIGLYCERIDES (test code = 2232) 159 MG/DL HDL CHOLESTEROL (test code = 2220) 82 MG/DL CALC LDL CHOL (test code = 2237) 150 MG/DL RISK RATIO LDL/HDL (test code = 1.83 RATIO 2238) LIPID [id number] 00:00:00 Test Item Value Reference Range Interpretation Comments CHOLESTEROL (test code = 2210) 261 MG/DL TRIGLYCERIDES (test code = 2232) 159 MG/DL HDL CHOLESTEROL (test code = 2220) 82 MG/DL CALC LDL CHOL (test code = 2237) 150 MG/DL RISK RATIO LDL/HDL (test code = 1.83 RATIO 2238) COMPREHENSIVE METABOLIC [id number] 00:00:00 Test Item Value Reference Range Interpretation Comments GLUCOSE (test code = 2217) 144 MG/DL BUN (test code = 2208) 15 MG/DL CREATININE (test code = 2214) 0.85 MG/DL eGFR AMER. (test code 87 ML/MIN/1.73 = 52821) eGFR NON- AMER. (test 75 ML/MIN/1.73 code = 62510) CALC BUN/CREAT (test code = 18 RATIO [...] code = 2219) 50 U/L COMPREHENSIVE METABOLIC [id number] 00:00:00 Test Item Value Reference Range Interpretation Comments GLUCOSE (test code = 2217) 144 MG/DL BUN (test code = 2208) 15 MG/DL CREATININE (test code = 2214) 0.85 MG/DL eGFR AMER. (test code 87 ML/MIN/1.73 = 49419) eGFR NON- AMER. (test 75 ML/MIN/1.73 code = 12233) CALC BUN/CREAT (test code = 18 RATIO [...] THYROX. BIND. CAPAC. (test code 1.1 = 62724) T4 (THYROXINE) (test code = 4.3 UG/DL 2819) CORRECTED T4 (FTI) (test code = 3.9 UG/DL 2820) TSH, THIRD GENERATION (test 18.900 UIU/ML code = 2821) THYROID II PROFILE (T3U, T4, T7, TSH)2020-05-23 00:00:00 Test Item Value Reference Range Interpretation Comments T-UPTAKE (test code = 2817) 30.2 % THYROX. BIND. CAPAC. (test code 1.1 = 51749) T4 (THYROXINE) (test code = 4.3 UG/DL 2819) CORRECTED T4 (FTI) (test code = 3.9 UG/DL 2820) TSH, THIRD GENERATION (test 18.900 UIU/ML code = 2821) HEMOGLOBIN [id number] 00:00:00 Test Item Value Reference Range Interpretation Comments HEMOGLOBIN A1c (test code = 02592) 6.6 % HEMOGLOBIN [id number] 00:00:00 Test Item Value Reference Range Interpretation Comments HEMOGLOBIN A1c (test code = 02158) 6.6 % LIPID [id number] 00:00:00 Test Item Value Reference Range Interpretation Comments CHOLESTEROL (test code = 2210) 261 MG/DL TRIGLYCERIDES (test code = 2232) 159 MG/DL HDL CHOLESTEROL (test code = 2220) 82 MG/DL CALC LDL CHOL (test code = 2237) 150 MG/DL RISK RATIO LDL/HDL (test code = 1.83 RATIO 2238) COMPREHENSIVE METABOLIC [id number] 00:00:00 Test Item Value Reference Range Interpretation Comments GLUCOSE (test code = 2217) 144 MG/DL BUN (test code = 2208) 15 MG/DL CREATININE (test code = 2214) 0.85 MG/DL eGFR AMER. (test code 87 ML/MIN/1.73 = 31044) eGFR NON- AMER. (test 75 ML/MIN/1.73 code = 39350) CALC BUN/CREAT (test code = 18 RATIO [...] THYROX. BIND. CAPAC. (test code 1.1 = 59898) T4 (THYROXINE) (test code = 4.3 UG/DL 2819) CORRECTED T4 (FTI) (test code = 3.9 UG/DL 2820) TSH, THIRD GENERATION (test 18.900 UIU/ML code = 2821) HEMOGLOBIN [id number] 00:00:00 Test Item Value Reference Range Interpretation Comments HEMOGLOBIN A1c (test code = 90809) 6.6 % HEMOGLOBIN [id number] 00:00:00 Test Item Value Reference Range Interpretation Comments HEMOGLOBIN A1c (test code = 93673) 6.6 % HEMOGLOBIN [id number] 00:00:00 Test Item Value Reference Range Interpretation Comments HEMOGLOBIN A1c (test code = 96594) 6.6 % LIPID [id number] 00:00:00 Test Item Value Reference Range Interpretation Comments CHOLESTEROL (test code = 2210) 261 MG/DL TRIGLYCERIDES (test code = 2232) 159 MG/DL HDL CHOLESTEROL (test code = 2220) 82 MG/DL CALC LDL CHOL (test code = 2237) 150 MG/DL RISK RATIO LDL/HDL (test code = 1.83 RATIO 2238) LIPID [id number] 00:00:00 Test Item Value Reference Range Interpretation Comments CHOLESTEROL (test code = 2210) 261 MG/DL TRIGLYCERIDES (test code = 2232) 159 MG/DL HDL CHOLESTEROL (test code = 2220) 82 MG/DL CALC LDL CHOL (test code = 2237) 150 MG/DL RISK RATIO LDL/HDL (test code = 1.83 RATIO 2238) COMPREHENSIVE METABOLIC [id number] 00:00:00 Test Item Value Reference Range Interpretation Comments GLUCOSE (test code = 2217) 144 MG/DL BUN (test code = 2208) 15 MG/DL CREATININE (test code = 2214) 0.85 MG/DL eGFR AMER. (test code 87 ML/MIN/1.73 = 82779) eGFR NON- AMER. (test 75 ML/MIN/1.73 code = 85781) CALC BUN/CREAT (test code = 18 RATIO [...] code = 2219) 50 U/L COMPREHENSIVE METABOLIC [id number] 00:00:00 Test Item Value Reference Range Interpretation Comments GLUCOSE (test code = 2217) 144 MG/DL BUN (test code = 2208) 15 MG/DL CREATININE (test code = 2214) 0.85 MG/DL eGFR AMER. (test code 87 ML/MIN/1.73 = 09963) eGFR NON- AMER. (test 75 ML/MIN/1.73 code = 17825) CALC BUN/CREAT (test code = 18 RATIO [...] THYROX. BIND. CAPAC. (test code 1.1 = 37319) T4 (THYROXINE) (test code = 4.3 UG/DL 2819) CORRECTED T4 (FTI) (test code = 3.9 UG/DL 2820) TSH, THIRD GENERATION (test 18.900 UIU/ML code = 2821) THYROID II PROFILE (T3U, T4, T7, TSH)2020-05-23 00:00:00 Test Item Value Reference Range Interpretation Comments T-UPTAKE (test code = 7) 30.2 % THYROX. BIND. CAPAC. (test code 1.1 = 54137) T4 (THYROXINE) (test code = 4.3 UG/DL 2819) CORRECTED T4 (FTI) (test code = 3.9 UG/DL 2820) TSH, THIRD GENERATION (test 18.900 UIU/ML code = 2821) HEMOGLOBIN [id number] 00:00:00 Test Item Value Reference Range Interpretation Comments HEMOGLOBIN A1c (test code = 41492) 6.7 % HEMOGLOBIN [id number] 00:00:00 Test Item Value Reference Range Interpretation Comments HEMOGLOBIN A1c (test code = 44519) 6.7 % HEMOGLOBIN [id number] 00:00:00 Test Item Value Reference Range Interpretation Comments HEMOGLOBIN A1c (test code = 23836) 6.7 % LIPID [id number] 00:00:00 Test Item Value Reference Range Interpretation Comments CHOLESTEROL (test code = 2210) 267 MG/DL TRIGLYCERIDES (test code = 2232) 137 MG/DL HDL CHOLESTEROL (test code = 2220) 48 MG/DL CALC LDL CHOL (test code = 2237) 192 MG/DL RISK RATIO LDL/HDL (test code = 4.00 RATIO 2238) LIPID [id number] 00:00:00 Test Item Value Reference Range Interpretation Comments CHOLESTEROL (test code = 2210) 267 MG/DL TRIGLYCERIDES (test code = 2232) 137 MG/DL HDL CHOLESTEROL (test code = 2220) 48 MG/DL CALC LDL CHOL (test code = 2237) 192 MG/DL RISK RATIO LDL/HDL (test code = 4.00 RATIO 2238) COMPREHENSIVE METABOLIC [id number] 00:00:00 Test Item Value Reference Range Interpretation Comments GLUCOSE (test code = 2217) 155 MG/DL BUN (test code = 2208) 14 MG/DL CREATININE (test code = 2214) 0.52 MG/DL eGFR AMER. (test code 122 ML/MIN/1.73 = 11877) eGFR NON- AMER. (test 105 ML/MIN/1.73 code = 62841) CALC BUN/CREAT (test code = 27 RATIO [...] code = 2219) 27 U/L COMPREHENSIVE METABOLIC [id number] 00:00:00 Test Item Value Reference Range Interpretation Comments GLUCOSE (test code = 2217) 155 MG/DL BUN (test code = 2208) 14 MG/DL CREATININE (test code = 2214) 0.52 MG/DL eGFR AMER. (test code 122 ML/MIN/1.73 = 05336) eGFR NON- AMER. (test 105 ML/MIN/1.73 code = 30237) CALC BUN/CREAT (test code = 27 RATIO [...] THYROX. BIND. CAPAC. (test code 1.0 = 25022) T4 (THYROXINE) (test code = 4.7 UG/DL 2819) CORRECTED T4 (FTI) (test code = 4.7 UG/DL 2820) TSH, THIRD GENERATION (test code 0.201 UIU/ML = 2821) THYROID II PROFILE (T3U, T4, T7, TSH)2019 00:00:00 Test Item Value Reference Range Interpretation Comments T-UPTAKE (test code = 2816) 33.1 % THYROX. BIND. CAPAC. (test code 1.0 = 88506) T4 (THYROXINE) (test code = 4.7 UG/DL 2819) CORRECTED T4 (FTI) (test code = 4.7 UG/DL 2820) TSH, THIRD GENERATION (test code 0.201 UIU/ML = 2821) HEMOGLOBIN [id number] 00:00:00 Test Item Value Reference Range Interpretation Comments HEMOGLOBIN A1c (test code = 36322) 6.7 % HEMOGLOBIN [id number] 00:00:00 Test Item Value Reference Range Interpretation Comments HEMOGLOBIN A1c (test code = 95622) 6.7 % HEMOGLOBIN [id number] 00:00:00 Test Item Value Reference Range Interpretation Comments HEMOGLOBIN A1c (test code = 45984) 6.7 % LIPID [id number] 00:00:00 Test Item Value Reference Range Interpretation Comments CHOLESTEROL (test code = 2210) 267 MG/DL TRIGLYCERIDES (test code = 2232) 137 MG/DL HDL CHOLESTEROL (test code = 2220) 48 MG/DL CALC LDL CHOL (test code = 2237) 192 MG/DL RISK RATIO LDL/HDL (test code = 4.00 RATIO 2238) LIPID [id number] 00:00:00 Test Item Value Reference Range Interpretation Comments CHOLESTEROL (test code = 2210) 267 MG/DL TRIGLYCERIDES (test code = 2232) 137 MG/DL HDL CHOLESTEROL (test code = 2220) 48 MG/DL CALC LDL CHOL (test code = 2237) 192 MG/DL RISK RATIO LDL/HDL (test code = 4.00 RATIO 2238) COMPREHENSIVE METABOLIC [id number] 00:00:00 Test Item Value Reference Range Interpretation Comments GLUCOSE (test code = 2217) 155 MG/DL BUN (test code = 2208) 14 MG/DL CREATININE (test code = 2214) 0.52 MG/DL eGFR AMER. (test code 122 ML/MIN/1.73 = 87360) eGFR NON- AMER. (test 105 ML/MIN/1.73 code = 32802) CALC BUN/CREAT (test code = 27 RATIO [...] code = 2219) 27 U/L COMPREHENSIVE METABOLIC [id number] 00:00:00 Test Item Value Reference Range Interpretation Comments GLUCOSE (test code = 2217) 155 MG/DL BUN (test code = 2208) 14 MG/DL CREATININE (test code = 2214) 0.52 MG/DL eGFR AMER. (test code 122 ML/MIN/1.73 = 48637) eGFR NON- AMER. (test 105 ML/MIN/1.73 code = 16590) CALC BUN/CREAT (test code = 27 RATIO [...] THYROX. BIND. CAPAC. (test code 1.0 = 41297) T4 (THYROXINE) (test code = 4.7 UG/DL 2819) CORRECTED T4 (FTI) (test code = 4.7 UG/DL 2820) TSH, THIRD GENERATION (test code 0.201 UIU/ML = 2821) THYROID II PROFILE (T3U, T4, T7, TSH)2019 00:00:00 Test Item Value Reference Range Interpretation Comments T-UPTAKE (test code = 2817) 33.1 % THYROX. BIND. CAPAC. (test code 1.0 = 74829) T4 (THYROXINE) (test code = 4.7 UG/DL 2819) CORRECTED T4 (FTI) (test code = 4.7 UG/DL 2820) TSH, THIRD GENERATION (test code 0.201 UIU/ML = 2821) HEMOGLOBIN [id number] 00:00:00 Test Item Value Reference Range Interpretation Comments HEMOGLOBIN A1c (test code = 85693) 6.7 % HEMOGLOBIN [id number] 00:00:00 Test Item Value Reference Range Interpretation Comments HEMOGLOBIN A1c (test code = 74049) 6.7 % LIPID [id number] 00:00:00 Test Item Value Reference Range Interpretation Comments CHOLESTEROL (test code = 2210) 267 MG/DL TRIGLYCERIDES (test code = 2232) 137 MG/DL HDL CHOLESTEROL (test code = 2220) 48 MG/DL CALC LDL CHOL (test code = 2237) 192 MG/DL RISK RATIO LDL/HDL (test code = 4.00 RATIO 2238) COMPREHENSIVE METABOLIC [id number] 00:00:00 Test Item Value Reference Range Interpretation Comments GLUCOSE (test code = 2217) 155 MG/DL BUN (test code = 2208) 14 MG/DL CREATININE (test code = 2214) 0.52 MG/DL eGFR AMER. (test code 122 ML/MIN/1.73 = 10602) eGFR NON- AMER. (test 105 ML/MIN/1.73 code = 88537) CALC BUN/CREAT (test code = 27 RATIO [...] THYROX. BIND. CAPAC. (test code 1.0 = 81789) T4 (THYROXINE) (test code = 4.7 UG/DL 2819) CORRECTED T4 (FTI) (test code = 4.7 UG/DL 2820) TSH, THIRD GENERATION (test code 0.201 UIU/ML = 2821) HEMOGLOBIN [id number] 00:00:00 Test Item Value Reference Range Interpretation Comments HEMOGLOBIN A1c (test code = 28661) 6.7 % HEMOGLOBIN [id number] 00:00:00 Test Item Value Reference Range Interpretation Comments HEMOGLOBIN A1c (test code = 06877) 6.7 % HEMOGLOBIN [id number] 00:00:00 Test Item Value Reference Range Interpretation Comments HEMOGLOBIN A1c (test code = 57846) 6.7 % LIPID [id number] 00:00:00 Test Item Value Reference Range Interpretation Comments CHOLESTEROL (test code = 2210) 267 MG/DL TRIGLYCERIDES (test code = 2232) 137 MG/DL HDL CHOLESTEROL (test code = 2220) 48 MG/DL CALC LDL CHOL (test code = 2237) 192 MG/DL RISK RATIO LDL/HDL (test code = 4.00 RATIO 2238) LIPID [id number] 00:00:00 Test Item Value Reference Range Interpretation Comments CHOLESTEROL (test code = 2210) 267 MG/DL TRIGLYCERIDES (test code = 2232) 137 MG/DL HDL CHOLESTEROL (test code = 2220) 48 MG/DL CALC LDL CHOL (test code = 2237) 192 MG/DL RISK RATIO LDL/HDL (test code = 4.00 RATIO 2238) COMPREHENSIVE METABOLIC [id number] 00:00:00 Test Item Value Reference Range Interpretation Comments GLUCOSE (test code = 2217) 155 MG/DL BUN (test code = 2208) 14 MG/DL CREATININE (test code = 2214) 0.52 MG/DL eGFR AMER. (test code 122 ML/MIN/1.73 = 96519) eGFR NON- AMER. (test 105 ML/MIN/1.73 code = 09321) CALC BUN/CREAT (test code = 27 RATIO [...] code = 2219) 27 U/L COMPREHENSIVE METABOLIC [id number] 00:00:00 Test Item Value Reference Range Interpretation Comments GLUCOSE (test code = 2217) 155 MG/DL BUN (test code = 2208) 14 MG/DL CREATININE (test code = 2214) 0.52 MG/DL eGFR AMER. (test code 122 ML/MIN/1.73 = 96532) eGFR NON- AMER. (test 105 ML/MIN/1.73 code = 16095) CALC BUN/CREAT (test code = 27 RATIO [...] THYROX. BIND. CAPAC. (test code 1.0 = 50002) T4 (THYROXINE) (test code = 4.7 UG/DL 2819) CORRECTED T4 (FTI) (test code = 4.7 UG/DL 2820) TSH, THIRD GENERATION (test code 0.201 UIU/ML = 2821) THYROID II PROFILE (T3U, T4, T7, TSH)2019 00:00:00 Test Item Value Reference Range Interpretation Comments T-UPTAKE (test code = 2817) 33.1 % THYROX. BIND. CAPAC. (test code 1.0 = 22304) T4 (THYROXINE) (test code = 4.7 UG/DL 2819) CORRECTED T4 (FTI) (test code = 4.7 UG/DL 2820) TSH, THIRD GENERATION (test code 0.201 UIU/ML = 2821) SARS-CoV-2 (COVID-19) by RT-PCR (HIGH RISK)2019-09-18 00:00:00 Test Item Value Reference Range Interpretation Comments SARS-CoV-2 INTERPRETATION (test NEGATIVE code = 94080) SOURCE (test code = 33478) NOT SPECIFIED SARS-CoV-2 (COVID-19) by RT-PCR (HIGH RISK)2019-09-18 00:00:00 Test Item Value Reference Range Interpretation Comments SARS-CoV-2 INTERPRETATION (test NEGATIVE code = 56626) SOURCE (test code = 22158) NOT SPECIFIED SARS-CoV-2 (COVID-19) by RT-PCR (HIGH RISK)2019-09-18 00:00:00 Test Item Value Reference Range Interpretation Comments SARS-CoV-2 INTERPRETATION (test NEGATIVE code = 65526) SOURCE (test code = 99425) NOT SPECIFIED SARS-CoV-2 (COVID-19) by RT-PCR (HIGH RISK)2019-09-18 00:00:00 Test Item Value Reference Range Interpretation Comments SARS-CoV-2 INTERPRETATION (test NEGATIVE code = 91036) SOURCE (test code = 12545) NOT SPECIFIED SARS-CoV-2 (COVID-19) by RT-PCR (HIGH RISK)2019-09-18 00:00:00 Test Item Value Reference Range Interpretation Comments SARS-CoV-2 INTERPRETATION (test NEGATIVE code = 79803) SOURCE (test code = 30854) NOT SPECIFIED SARS-CoV-2 (COVID-19) by RT-PCR (HIGH RISK)2019-09-18 00:00:00 Test Item Value Reference Range Interpretation Comments SARS-CoV-2 INTERPRETATION (test NEGATIVE code = 26238) SOURCE (test code = 08213) NOT SPECIFIED SARS-CoV-2 (COVID-19) by RT-PCR (HIGH RISK)2019-09-18 00:00:00 Test Item Value Reference Range Interpretation Comments SARS-CoV-2 INTERPRETATION (test NEGATIVE code = 78361) SOURCE (test code = 90127) NOT SPECIFIED [id number] 00:00:00 Test Item Value Reference Range Interpretation Comments TSH, THIRD GENERATION (test code 2.490 UIU/ML = 2821) [id number] 00:00:00 Test Item Value Reference Range Interpretation Comments TSH, THIRD GENERATION (test code 2.490 UIU/ML = 2821) [id number] 00:00:00 Test Item Value Reference Range Interpretation Comments TSH, THIRD GENERATION (test code 2.490 UIU/ML = 2821) HEMOGLOBIN [id number] 00:00:00 Test Item Value Reference Range Interpretation Comments HEMOGLOBIN A1c (test code = 62791) 6.4 % HEMOGLOBIN [id number] 00:00:00 Test Item Value Reference Range Interpretation Comments HEMOGLOBIN A1c (test code = 41573) 6.4 % HEMOGLOBIN [id number] 00:00:00 Test Item Value Reference Range Interpretation Comments HEMOGLOBIN A1c (test code = 49166) 6.4 % COMPREHENSIVE METABOLIC [id number] 00:00:00 Test Item Value Reference Range Interpretation Comments GLUCOSE (test code = 2217) 206 MG/DL BUN (test code = 2208) 23 MG/DL CREATININE (test code = 2214) 0.67 MG/DL eGFR AMER. (test code 112 ML/MIN/1.73 = 92394) eGFR NON- AMER. (test 97 ML/MIN/1.73 code = 43928) CALC BUN/CREAT (test code = 34 RATIO [...] code = 2219) 25 U/L COMPREHENSIVE METABOLIC [id number] 00:00:00 Test Item Value Reference Range Interpretation Comments GLUCOSE (test code = 2217) 206 MG/DL BUN (test code = 2208) 23 MG/DL CREATININE (test code = 2214) 0.67 MG/DL eGFR AMER. (test code 112 ML/MIN/1.73 = 12299) eGFR NON- AMER. (test 97 ML/MIN/1.73 code = 06647) CALC BUN/CREAT (test code = 34 RATIO [...] ALT (test code = 2219) 25 U/L [id number] 00:00:00 Test Item Value Reference Range Interpretation Comments TSH, THIRD GENERATION (test code 2.490 UIU/ML = 2821) [id number] 00:00:00 Test Item Value Reference Range Interpretation Comments TSH, THIRD GENERATION (test code 2.490 UIU/ML = 2821) [id number] 00:00:00 Test Item Value Reference Range Interpretation Comments TSH, THIRD GENERATION (test code 2.490 UIU/ML = 2821) HEMOGLOBIN [id number] 00:00:00 Test Item Value Reference Range Interpretation Comments HEMOGLOBIN A1c (test code = 37726) 6.4 % HEMOGLOBIN [id number] 00:00:00 Test Item Value Reference Range Interpretation Comments HEMOGLOBIN A1c (test code = 69928) 6.4 % HEMOGLOBIN [id number] 00:00:00 Test Item Value Reference Range Interpretation Comments HEMOGLOBIN A1c (test code = 40839) 6.4 % COMPREHENSIVE METABOLIC [id number] 00:00:00 Test Item Value Reference Range Interpretation Comments GLUCOSE (test code = 2217) 206 MG/DL BUN (test code = 2208) 23 MG/DL CREATININE (test code = 2214) 0.67 MG/DL eGFR AMER. (test code 112 ML/MIN/1.73 = 11756) eGFR NON- AMER. (test 97 ML/MIN/1.73 code = 05561) CALC BUN/CREAT (test code = 34 RATIO [...] code = 2219) 25 U/L COMPREHENSIVE METABOLIC [id number] 00:00:00 Test Item Value Reference Range Interpretation Comments GLUCOSE (test code = 2217) 206 MG/DL BUN (test code = 2208) 23 MG/DL CREATININE (test code = 2214) 0.67 MG/DL eGFR AMER. (test code 112 ML/MIN/1.73 = 06651) eGFR NON- AMER. (test 97 ML/MIN/1.73 code = 46814) CALC BUN/CREAT (test code = 34 RATIO [...] ALT (test code = 2219) 25 U/L [id number] 00:00:00 Test Item Value Reference Range Interpretation Comments TSH, THIRD GENERATION (test code 2.490 UIU/ML = 2821) [id number] 00:00:00 Test Item Value Reference Range Interpretation Comments TSH, THIRD GENERATION (test code 2.490 UIU/ML = 2821) HEMOGLOBIN [id number] 00:00:00 Test Item Value Reference Range Interpretation Comments HEMOGLOBIN A1c (test code = 18298) 6.4 % HEMOGLOBIN [id number] 00:00:00 Test Item Value Reference Range Interpretation Comments HEMOGLOBIN A1c (test code = 98964) 6.4 % COMPREHENSIVE METABOLIC [id number] 00:00:00 Test Item Value Reference Range Interpretation Comments GLUCOSE (test code = 2217) 206 MG/DL BUN (test code = 2208) 23 MG/DL CREATININE (test code = 2214) 0.67 MG/DL eGFR AMER. (test code 112 ML/MIN/1.73 = 33983) eGFR NON- AMER. (test 97 ML/MIN/1.73 code = 14723) CALC BUN/CREAT (test code = 34 RATIO [...] ALT (test code = 2219) 25 U/L [id number] 00:00:00 Test Item Value Reference Range Interpretation Comments TSH, THIRD GENERATION (test code 2.490 UIU/ML = 2821) [id number] 00:00:00 Test Item Value Reference Range Interpretation Comments TSH, THIRD GENERATION (test code 2.490 UIU/ML = 2821) [id number] 00:00:00 Test Item Value Reference Range Interpretation Comments TSH, THIRD GENERATION (test code 2.490 UIU/ML = 2821) HEMOGLOBIN [id number] 00:00:00 Test Item Value Reference Range Interpretation Comments HEMOGLOBIN A1c (test code = 77172) 6.4 % HEMOGLOBIN [id number] 00:00:00 Test Item Value Reference Range Interpretation Comments HEMOGLOBIN A1c (test code = 88489) 6.4 % HEMOGLOBIN [id number] 00:00:00 Test Item Value Reference Range Interpretation Comments HEMOGLOBIN A1c (test code = 08977) 6.4 % COMPREHENSIVE METABOLIC [id number] 00:00:00 Test Item Value Reference Range Interpretation Comments GLUCOSE (test code = 2217) 206 MG/DL BUN (test code = 2208) 23 MG/DL CREATININE (test code = 2214) 0.67 MG/DL eGFR AMER. (test code 112 ML/MIN/1.73 = 66652) eGFR NON- AMER. (test 97 ML/MIN/1.73 code = 70359) CALC BUN/CREAT (test code = 34 RATIO [...] code = 2219) 25 U/L COMPREHENSIVE METABOLIC [id number] 00:00:00 Test Item Value Reference Range Interpretation Comments GLUCOSE (test code = 2217) 206 MG/DL BUN (test code = 2208) 23 MG/DL CREATININE (test code = 2214) 0.67 MG/DL eGFR AMER. (test code 112 ML/MIN/1.73 = 38806) eGFR NON- AMER. (test 97 ML/MIN/1.73 code = 67260) CALC BUN/CREAT (test code = 34 RATIO [...] = 2219) 25 U/L VAGINAL PATHOGENS DNA [id number] 00:00:00 Test Item Value Reference Range Interpretation Comments MARK SPECIES (test code = ) NEGATIVE G. VAGINALIS (test code = ) NEGATIVE T. VAGINALIS (test code = ) NEGATIVE VAGINAL PATHOGENS DNA [id number] 00:00:00 Test Item Value Reference Range Interpretation Comments MARK SPECIES (test code = 58645) NEGATIVE G. VAGINALIS (test code = 22754) NEGATIVE T. VAGINALIS (test code = 93230) NEGATIVE VAGINAL PATHOGENS DNA [id number] 00:00:00 Test Item Value Reference Range Interpretation Comments MARK SPECIES (test code = 02621) NEGATIVE G. VAGINALIS (test code = 95104) NEGATIVE T. VAGINALIS (test code = 28020) NEGATIVE VAGINAL PATHOGENS DNA [id number] 00:00:00 Test Item Value Reference Range Interpretation Comments MARK SPECIES (test code = 50955) NEGATIVE G. VAGINALIS (test code = 88796) NEGATIVE T. VAGINALIS (test code = 08086) NEGATIVE VAGINAL PATHOGENS DNA [id number] 00:00:00 Test Item Value Reference Range Interpretation Comments MARK SPECIES (test code = 59059) NEGATIVE G. VAGINALIS (test code = 28023) NEGATIVE T. VAGINALIS (test code = 13970) NEGATIVE VAGINAL PATHOGENS DNA [id number] 00:00:00 Test Item Value Reference Range Interpretation Comments MARK SPECIES (test code = 81615) NEGATIVE G. VAGINALIS (test code = 66666) NEGATIVE T. VAGINALIS (test code = 83301) NEGATIVE VAGINAL PATHOGENS DNA [id number] 00:00:00 Test Item Value Reference Range Interpretation Comments MARK SPECIES (test code = 18923) NEGATIVE G. VAGINALIS (test code = 38370) NEGATIVE T. VAGINALIS (test code = 94310) NEGATIVE HEMOGLOBIN A1c [ADDED]2018-12-01 00:00:00 Test Item Value Reference Range Interpretation Comments HEMOGLOBIN A1c (test code = 08217) 6.7 % HEMOGLOBIN A1c [ADDED]2018-12-01 00:00:00 Test Item Value Reference Range Interpretation Comments HEMOGLOBIN A1c (test code = 03375) 6.7 % HEMOGLOBIN A1c [ADDED]2018-12-01 00:00:00 Test Item Value Reference Range Interpretation Comments HEMOGLOBIN A1c (test code = 86102) 6.7 % COMPREHENSIVE METABOLIC PANEL [ADDED]2018-12-01 00:00:00 Test Item Value Reference Range Interpretation Comments GLUCOSE (test code = 2217) 136 MG/DL BUN (test code = 2208) 15 MG/DL CREATININE (test code = 2214) 0.64 MG/DL eGFR AMER. (test code 115 ML/MIN/1.73 = 32587) eGFR NON- AMER. (test 99 ML/MIN/1.73 code = 24230) CALC BUN/CREAT (test code = 23 RATIO [...] eGFR AMER. (test code 115 ML/MIN/1.73 = 04110) eGFR NON- AMER. (test 99 ML/MIN/1.73 code = 20852) CALC BUN/CREAT (test code = 23 RATIO [...] Interpretation Comments HEMOGLOBIN A1c (test code = 28880) 6.7 % HEMOGLOBIN A1c [ADDED]2018-12-01 00:00:00 Test Item Value Reference Range Interpretation Comments HEMOGLOBIN A1c (test code = 58876) 6.7 % HEMOGLOBIN A1c [ADDED]2018-12-01 00:00:00 Test Item Value Reference Range Interpretation Comments HEMOGLOBIN A1c (test code = 58132) 6.7 % COMPREHENSIVE METABOLIC PANEL [ADDED]2018-12-01 00:00:00 Test Item Value Reference Range Interpretation Comments GLUCOSE (test code = 2217) 136 MG/DL BUN (test code = 2208) 15 MG/DL CREATININE (test code = 2214) 0.64 MG/DL eGFR AMER. (test code 115 ML/MIN/1.73 = 13327) eGFR NON- AMER. (test 99 ML/MIN/1.73 code = 37353) CALC BUN/CREAT (test code = 23 RATIO [...] eGFR AMER. (test code 115 ML/MIN/1.73 = 15131) eGFR NON- AMER. (test 99 ML/MIN/1.73 code = 96785) CALC BUN/CREAT (test code = 23 RATIO [...] Interpretation Comments HEMOGLOBIN A1c (test code = 19896) 6.7 % HEMOGLOBIN A1c [ADDED]2018-12-01 00:00:00 Test Item Value Reference Range Interpretation Comments HEMOGLOBIN A1c (test code = 47615) 6.7 % COMPREHENSIVE METABOLIC PANEL [ADDED]2018-12-01 00:00:00 Test Item Value Reference Range Interpretation Comments GLUCOSE (test code = 2217) 136 MG/DL BUN (test code = 2208) 15 MG/DL CREATININE (test code = 2214) 0.64 MG/DL eGFR AMER. (test code 115 ML/MIN/1.73 = 92295) eGFR NON- AMER. (test 99 ML/MIN/1.73 code = 71173) CALC BUN/CREAT (test code = 23 RATIO [...] Interpretation Comments HEMOGLOBIN A1c (test code = 66422) 6.7 % HEMOGLOBIN A1c [ADDED]2018-12-01 00:00:00 Test Item Value Reference Range Interpretation Comments HEMOGLOBIN A1c (test code = 31771) 6.7 % HEMOGLOBIN A1c [ADDED]2018-12-01 00:00:00 Test Item Value Reference Range Interpretation Comments HEMOGLOBIN A1c (test code = 31338) 6.7 % COMPREHENSIVE METABOLIC PANEL [ADDED]2018-12-01 00:00:00 Test Item Value Reference Range Interpretation Comments GLUCOSE (test code = 2217) 136 MG/DL BUN (test code = 2208) 15 MG/DL CREATININE (test code = 2214) 0.64 MG/DL eGFR AMER. (test code 115 ML/MIN/1.73 = 87074) eGFR NON- AMER. (test 99 ML/MIN/1.73 code = 31292) CALC BUN/CREAT (test code = 23 RATIO [...] eGFR AMER. (test code 115 ML/MIN/1.73 = 90458) eGFR NON- AMER. (test 99 ML/MIN/1.73 code = 27223) CALC BUN/CREAT (test code = 23 RATIO [...] code 1.280 UIU/ML = 2821) CBC W/AUTO [id number] 00:00:00 Test Item Value Reference Range Interpretation [...] code = 1015) 346 K/UL CBC W/AUTO [id number] 00:00:00 Test Item Value Reference Range Interpretation [...] code = 1015) 346 K/UL CBC W/AUTO [id number] 00:00:00 Test Item Value Reference Range Interpretation [...] (test code = 1015) 346 K/UL HEMOGLOBIN [id number] 00:00:00 Test Item Value Reference Range Interpretation Comments HEMOGLOBIN A1c (test code = 40761) 5.9 % HEMOGLOBIN [id number] 00:00:00 Test Item Value Reference Range Interpretation Comments HEMOGLOBIN A1c (test code = 35716) 5.9 % HEMOGLOBIN [id number] 00:00:00 Test Item Value Reference Range Interpretation Comments HEMOGLOBIN A1c (test code = 64640) 5.9 % LIPID [id number] 00:00:00 Test Item Value Reference Range Interpretation Comments CHOLESTEROL (test code = 2210) 318 MG/DL TRIGLYCERIDES (test code = 2232) 263 MG/DL HDL CHOLESTEROL (test code = 2220) 51 MG/DL CALC LDL CHOL (test code = 2237) 214 MG/DL RISK RATIO LDL/HDL (test code = 4.20 RATIO 2238) LIPID [id number] 00:00:00 Test Item Value Reference Range Interpretation Comments CHOLESTEROL (test code = 2210) 318 MG/DL TRIGLYCERIDES (test code = 2232) 263 MG/DL HDL CHOLESTEROL (test code = 2220) 51 MG/DL CALC LDL CHOL (test code = 2237) 214 MG/DL RISK RATIO LDL/HDL (test code = 4.20 RATIO 2238) COMPREHENSIVE METABOLIC [id number] 00:00:00 Test Item Value Reference Range Interpretation Comments GLUCOSE (test code = 2217) 113 MG/DL BUN (test code = 2208) 18 MG/DL CREATININE (test code = 2214) 0.70 MG/DL eGFR AMER. (test code 111 ML/MIN/1.73 = 23399) eGFR NON- AMER. (test 96 ML/MIN/1.73 code = 82463) CALC BUN/CREAT (test code = 26 RATIO [...] code = 2219) 31 U/L COMPREHENSIVE METABOLIC [id number] 00:00:00 Test Item Value Reference Range Interpretation Comments GLUCOSE (test code = 2217) 113 MG/DL BUN (test code = 2208) 18 MG/DL CREATININE (test code = 2214) 0.70 MG/DL eGFR AMER. (test code 111 ML/MIN/1.73 = 02525) eGFR NON- AMER. (test 96 ML/MIN/1.73 code = 80587) CALC BUN/CREAT (test code = 26 RATIO [...] ALT (test code = 2219) 31 U/L [id number] 00:00:00 Test Item Value Reference Range Interpretation Comments TSH, THIRD GENERATION (test code 2.520 UIU/ML = 2821) [id number] 00:00:00 Test Item Value Reference Range Interpretation Comments TSH, THIRD GENERATION (test code 2.520 UIU/ML = 2821) [id number] 00:00:00 Test Item Value Reference Range Interpretation Comments TSH, THIRD GENERATION (test code 2.520 UIU/ML = 2821) CBC W/AUTO [id number] 00:00:00 Test Item Value Reference Range Interpretation [...] code = 1015) 346 K/UL CBC W/AUTO [id number] 00:00:00 Test Item Value Reference Range Interpretation [...] code = 1015) 346 K/UL CBC W/AUTO [id number] 00:00:00 Test Item Value Reference Range Interpretation [...] (test code = 1015) 346 K/UL HEMOGLOBIN [id number] 00:00:00 Test Item Value Reference Range Interpretation Comments HEMOGLOBIN A1c (test code = 45897) 5.9 % HEMOGLOBIN [id number] 00:00:00 Test Item Value Reference Range Interpretation Comments HEMOGLOBIN A1c (test code = 79729) 5.9 % HEMOGLOBIN [id number] 00:00:00 Test Item Value Reference Range Interpretation Comments HEMOGLOBIN A1c (test code = 75224) 5.9 % LIPID [id number] 00:00:00 Test Item Value Reference Range Interpretation Comments CHOLESTEROL (test code = 2210) 318 MG/DL TRIGLYCERIDES (test code = 2232) 263 MG/DL HDL CHOLESTEROL (test code = 2220) 51 MG/DL CALC LDL CHOL (test code = 2237) 214 MG/DL RISK RATIO LDL/HDL (test code = 4.20 RATIO 2238) LIPID [id number] 00:00:00 Test Item Value Reference Range Interpretation Comments CHOLESTEROL (test code = 2210) 318 MG/DL TRIGLYCERIDES (test code = 2232) 263 MG/DL HDL CHOLESTEROL (test code = 2220) 51 MG/DL CALC LDL CHOL (test code = 2237) 214 MG/DL RISK RATIO LDL/HDL (test code = 4.20 RATIO 2238) COMPREHENSIVE METABOLIC [id number] 00:00:00 Test Item Value Reference Range Interpretation Comments GLUCOSE (test code = 2217) 113 MG/DL BUN (test code = 2208) 18 MG/DL CREATININE (test code = 2214) 0.70 MG/DL eGFR AMER. (test code 111 ML/MIN/1.73 = 09468) eGFR NON- AMER. (test 96 ML/MIN/1.73 code = 68152) CALC BUN/CREAT (test code = 26 RATIO [...] code = 2219) 31 U/L COMPREHENSIVE METABOLIC [id number] 00:00:00 Test Item Value Reference Range Interpretation Comments GLUCOSE (test code = 2217) 113 MG/DL BUN (test code = 2208) 18 MG/DL CREATININE (test code = 2214) 0.70 MG/DL eGFR AMER. (test code 111 ML/MIN/1.73 = 92337) eGFR NON- AMER. (test 96 ML/MIN/1.73 code = 02429) CALC BUN/CREAT (test code = 26 RATIO [...] ALT (test code = 2219) 31 U/L [id number] 00:00:00 Test Item Value Reference Range Interpretation Comments TSH, THIRD GENERATION (test code 2.520 UIU/ML = 2821) [id number] 00:00:00 Test Item Value Reference Range Interpretation Comments TSH, THIRD GENERATION (test code 2.520 UIU/ML = 2821) [id number] 00:00:00 Test Item Value Reference Range Interpretation Comments TSH, THIRD GENERATION (test code 2.520 UIU/ML = 2821) CBC W/AUTO [id number] 00:00:00 Test Item Value Reference Range Interpretation [...] code = 1015) 346 K/UL CBC W/AUTO [id number] 00:00:00 Test Item Value Reference Range Interpretation [...] (test code = 1015) 346 K/UL HEMOGLOBIN [id number] 00:00:00 Test Item Value Reference Range Interpretation Comments HEMOGLOBIN A1c (test code = 71069) 5.9 % HEMOGLOBIN [id number] 00:00:00 Test Item Value Reference Range Interpretation Comments HEMOGLOBIN A1c (test code = 49581) 5.9 % LIPID [id number] 00:00:00 Test Item Value Reference Range Interpretation Comments CHOLESTEROL (test code = 2210) 318 MG/DL TRIGLYCERIDES (test code = 2232) 263 MG/DL HDL CHOLESTEROL (test code = 2220) 51 MG/DL CALC LDL CHOL (test code = 2237) 214 MG/DL RISK RATIO LDL/HDL (test code = 4.20 RATIO 2238) COMPREHENSIVE METABOLIC [id number] 00:00:00 Test Item Value Reference Range Interpretation Comments GLUCOSE (test code = 2217) 113 MG/DL BUN (test code = 2208) 18 MG/DL CREATININE (test code = 2214) 0.70 MG/DL eGFR AMER. (test code 111 ML/MIN/1.73 = 10442) eGFR NON- AMER. (test 96 ML/MIN/1.73 code = 10514) CALC BUN/CREAT (test code = 26 RATIO [...] ALT (test code = 2219) 31 U/L [id number] 00:00:00 Test Item Value Reference Range Interpretation Comments TSH, THIRD GENERATION (test code 2.520 UIU/ML = 2821) [id number] 00:00:00 Test Item Value Reference Range Interpretation Comments TSH, THIRD GENERATION (test code 2.520 UIU/ML = 2821) CBC W/AUTO [id number] 00:00:00 Test Item Value Reference Range Interpretation [...] code = 1015) 346 K/UL CBC W/AUTO [id number] 00:00:00 Test Item Value Reference Range Interpretation [...] code = 1015) 346 K/UL CBC W/AUTO [id number] 00:00:00 Test Item Value Reference Range Interpretation [...] (test code = 1015) 346 K/UL HEMOGLOBIN [id number] 00:00:00 Test Item Value Reference Range Interpretation Comments HEMOGLOBIN A1c (test code = 20230) 5.9 % HEMOGLOBIN [id number] 00:00:00 Test Item Value Reference Range Interpretation Comments HEMOGLOBIN A1c (test code = 31645) 5.9 % HEMOGLOBIN [id number] 00:00:00 Test Item Value Reference Range Interpretation Comments HEMOGLOBIN A1c (test code = 06896) 5.9 % LIPID [id number] 00:00:00 Test Item Value Reference Range Interpretation Comments CHOLESTEROL (test code = 2210) 318 MG/DL TRIGLYCERIDES (test code = 2232) 263 MG/DL HDL CHOLESTEROL (test code = 2220) 51 MG/DL CALC LDL CHOL (test code = 2237) 214 MG/DL RISK RATIO LDL/HDL (test code = 4.20 RATIO 2238) LIPID [id number] 00:00:00 Test Item Value Reference Range Interpretation Comments CHOLESTEROL (test code = 2210) 318 MG/DL TRIGLYCERIDES (test code = 2232) 263 MG/DL HDL CHOLESTEROL (test code = 2220) 51 MG/DL CALC LDL CHOL (test code = 2237) 214 MG/DL RISK RATIO LDL/HDL (test code = 4.20 RATIO 2238) COMPREHENSIVE METABOLIC [id number] 00:00:00 Test Item Value Reference Range Interpretation Comments GLUCOSE (test code = 2217) 113 MG/DL BUN (test code = 2208) 18 MG/DL CREATININE (test code = 2214) 0.70 MG/DL eGFR AMER. (test code 111 ML/MIN/1.73 = 69627) eGFR NON- AMER. (test 96 ML/MIN/1.73 code = 91744) CALC BUN/CREAT (test code = 26 RATIO [...] code = 2219) 31 U/L COMPREHENSIVE METABOLIC [id number] 00:00:00 Test Item Value Reference Range Interpretation Comments GLUCOSE (test code = 2217) 113 MG/DL BUN (test code = 2208) 18 MG/DL CREATININE (test code = 2214) 0.70 MG/DL eGFR AMER. (test code 111 ML/MIN/1.73 = 37133) eGFR NON- AMER. (test 96 ML/MIN/1.73 code = 51422) CALC BUN/CREAT (test code = 26 RATIO [...] ALT (test code = 2219) 31 U/L [id number] 00:00:00 Test Item Value Reference Range Interpretation Comments TSH, THIRD GENERATION (test code 2.520 UIU/ML = 2821) [id number] 00:00:00 Test Item Value Reference Range Interpretation Comments TSH, THIRD GENERATION (test code 2.520 UIU/ML = 2821) [id number] 00:00:00 Test Item Value Reference Range Interpretation Comments TSH, THIRD GENERATION (test code 2.520 UIU/ML = 2821) CULTURE, [id number] 00:00:00 Test Item Value Reference Range Interpretation Comments CULTURE, URINE (test SPECIMEN NUMBER: code = 35417) [id number] CULTURE, [id number] 00:00:00 Test Item Value Reference Range Interpretation Comments CULTURE, URINE (test SPECIMEN NUMBER: code = 19237) [id number] CULTURE, [id number] 00:00:00 Test Item Value Reference Range Interpretation Comments CULTURE, URINE (test SPECIMEN NUMBER: code = 30874) [id number] CULTURE, [id number] 00:00:00 Test Item Value Reference Range Interpretation Comments CULTURE, URINE (test SPECIMEN NUMBER: code = 35715) [id number] CULTURE, [id number] 00:00:00 Test Item Value Reference Range Interpretation Comments CULTURE, URINE (test SPECIMEN NUMBER: code = 84957) [id number] CULTURE, [id number] 00:00:00 Test Item Value Reference Range Interpretation Comments CULTURE, URINE (test SPECIMEN NUMBER: code = 23798) [id number] CULTURE, [id number] 00:00:00 Test Item Value Reference Range Interpretation Comments CULTURE, URINE (test SPECIMEN NUMBER: code = 79610) [id number] CULTURE, [id number] 00:00:00 Test Item Value Reference Range Interpretation Comments CULTURE, URINE (test SPECIMEN NUMBER: code = 62288) [id number] CULTURE, [id number] 00:00:00 Test Item Value Reference Range Interpretation Comments CULTURE, URINE (test SPECIMEN NUMBER: code = 68980) [id number] CULTURE, [id number] 00:00:00 Test Item Value Reference Range Interpretation Comments CULTURE, URINE (test SPECIMEN NUMBER: code = 14469) [id number] CULTURE, [id number] 00:00:00 Test Item Value Reference Range Interpretation Comments CULTURE, URINE (test SPECIMEN NUMBER: code = 82506) [id number] CULTURE, [id number] 00:00:00 Test Item Value Reference Range Interpretation Comments CULTURE, URINE (test SPECIMEN NUMBER: code = 21347) [id number] CULTURE, [id number] 00:00:00 Test Item Value Reference Range Interpretation Comments CULTURE, URINE (test SPECIMEN NUMBER: code = 82960) [id number] CULTURE, [id number] 00:00:00 Test Item Value Reference Range Interpretation Comments CULTURE, URINE (test SPECIMEN NUMBER: code = 95044) [id number] BASIC METABOLIC [id number] 00:00:00 Test Item Value Reference Range Interpretation Comments GLUCOSE (test code = 2217) 135 MG/DL BUN (test code = 2208) 25 MG/DL CREATININE (test code = 2214) 0.76 MG/DL eGFR AMER. (test code 101 ML/MIN/1.73 = 58440) eGFR NON- AMER. (test 87 ML/MIN/1.73 code = 94769) SODIUM (test code = 2231) 139 MEQ/L POTASSIUM (test code = 2228) 4.7 MEQ/L CHLORIDE (test code = 2215) 99 MEQ/L CARBON DIOXIDE (test code = 26 MEQ/L 2206) CALCIUM (test code = 2209) 9.4 MG/DL BASIC METABOLIC [id number] 00:00:00 Test Item Value Reference Range Interpretation Comments GLUCOSE (test code = 2217) 135 MG/DL BUN (test code = 2208) 25 MG/DL CREATININE (test code = 2214) 0.76 MG/DL eGFR AMER. (test code 101 ML/MIN/1.73 = 84300) eGFR NON- AMER. (test 87 ML/MIN/1.73 code = 20450) SODIUM (test code = 2231) 139 MEQ/L POTASSIUM (test code = 2228) 4.7 MEQ/L CHLORIDE (test code = 2215) 99 MEQ/L CARBON DIOXIDE (test code = 26 MEQ/L 2206) CALCIUM (test code = 2209) 9.4 MG/DL LIPID [id number] 00:00:00 Test Item Value Reference Range Interpretation Comments CHOLESTEROL (test code = 2210) 262 MG/DL TRIGLYCERIDES (test code = 2232) 300 MG/DL HDL CHOLESTEROL (test code = 2220) 36 MG/DL CALC LDL CHOL (test code = 2237) 166 MG/DL RISK RATIO LDL/HDL (test code = 4.61 RATIO 2238) LIPID [id number] 00:00:00 Test Item Value Reference Range Interpretation Comments CHOLESTEROL (test code = 2210) 262 MG/DL TRIGLYCERIDES (test code = 2232) 300 MG/DL HDL CHOLESTEROL (test code = 2220) 36 MG/DL CALC LDL CHOL (test code = 2237) 166 MG/DL RISK RATIO LDL/HDL (test code = 4.61 RATIO 2238) HEMOGLOBIN [id number] 00:00:00 Test Item Value Reference Range Interpretation Comments HEMOGLOBIN A1c (test code = 59462) 6.2 % HEMOGLOBIN [id number] 00:00:00 Test Item Value Reference Range Interpretation Comments HEMOGLOBIN A1c (test code = 26579) 6.2 % HEMOGLOBIN [id number] 00:00:00 Test Item Value Reference Range Interpretation Comments HEMOGLOBIN A1c (test code = 08556) 6.2 % [id number] 00:00:00 Test Item Value Reference Range Interpretation Comments TSH, THIRD GENERATION (test code 0.988 UIU/ML = 2821) [id number] 00:00:00 Test Item Value Reference Range Interpretation Comments TSH, THIRD GENERATION (test code 0.988 UIU/ML = 2821) [id number] 00:00:00 Test Item Value Reference Range Interpretation Comments TSH, THIRD GENERATION (test code 0.988 UIU/ML = 2821) BASIC METABOLIC [id number] 00:00:00 Test Item Value Reference Range Interpretation Comments GLUCOSE (test code = 2217) 135 MG/DL BUN (test code = 2208) 25 MG/DL CREATININE (test code = 2214) 0.76 MG/DL eGFR AMER. (test code 101 ML/MIN/1.73 = 17458) eGFR NON- AMER. (test 87 ML/MIN/1.73 code = 65300) SODIUM (test code = 2231) 139 MEQ/L POTASSIUM (test code = 2228) 4.7 MEQ/L CHLORIDE (test code = 2215) 99 MEQ/L CARBON DIOXIDE (test code = 26 MEQ/L 2206) CALCIUM (test code = 2209) 9.4 MG/DL BASIC METABOLIC [id number] 00:00:00 Test Item Value Reference Range Interpretation Comments GLUCOSE (test code = 2217) 135 MG/DL BUN (test code = 2208) 25 MG/DL CREATININE (test code = 2214) 0.76 MG/DL eGFR AMER. (test code 101 ML/MIN/1.73 = 10454) eGFR NON- AMER. (test 87 ML/MIN/1.73 code = 52123) SODIUM (test code = 2231) 139 MEQ/L POTASSIUM (test code = 2228) 4.7 MEQ/L CHLORIDE (test code = 2215) 99 MEQ/L CARBON DIOXIDE (test code = 26 MEQ/L 2206) CALCIUM (test code = 2209) 9.4 MG/DL LIPID [id number] 00:00:00 Test Item Value Reference Range Interpretation Comments CHOLESTEROL (test code = 2210) 262 MG/DL TRIGLYCERIDES (test code = 2232) 300 MG/DL HDL CHOLESTEROL (test code = 2220) 36 MG/DL CALC LDL CHOL (test code = 2237) 166 MG/DL RISK RATIO LDL/HDL (test code = 4.61 RATIO 2238) LIPID [id number] 00:00:00 Test Item Value Reference Range Interpretation Comments CHOLESTEROL (test code = 2210) 262 MG/DL TRIGLYCERIDES (test code = 2232) 300 MG/DL HDL CHOLESTEROL (test code = 2220) 36 MG/DL CALC LDL CHOL (test code = 2237) 166 MG/DL RISK RATIO LDL/HDL (test code = 4.61 RATIO 2238) HEMOGLOBIN [id number] 00:00:00 Test Item Value Reference Range Interpretation Comments HEMOGLOBIN A1c (test code = 39650) 6.2 % HEMOGLOBIN [id number] 00:00:00 Test Item Value Reference Range Interpretation Comments HEMOGLOBIN A1c (test code = 19162) 6.2 % HEMOGLOBIN [id number] 00:00:00 Test Item Value Reference Range Interpretation Comments HEMOGLOBIN A1c (test code = 14827) 6.2 % [id number] 00:00:00 Test Item Value Reference Range Interpretation Comments TSH, THIRD GENERATION (test code 0.988 UIU/ML = 2821) [id number] 00:00:00 Test Item Value Reference Range Interpretation Comments TSH, THIRD GENERATION (test code 0.988 UIU/ML = 2821) [id number] 00:00:00 Test Item Value Reference Range Interpretation Comments TSH, THIRD GENERATION (test code 0.988 UIU/ML = 2821) BASIC METABOLIC [id number] 00:00:00 Test Item Value Reference Range Interpretation Comments GLUCOSE (test code = 2217) 135 MG/DL BUN (test code = 2208) 25 MG/DL CREATININE (test code = 2214) 0.76 MG/DL eGFR AMER. (test code 101 ML/MIN/1.73 = 30677) eGFR NON- AMER. (test 87 ML/MIN/1.73 code = 79991) SODIUM (test code = 2231) 139 MEQ/L POTASSIUM (test code = 2228) 4.7 MEQ/L CHLORIDE (test code = 2215) 99 MEQ/L CARBON DIOXIDE (test code = 26 MEQ/L 2206) CALCIUM (test code = 2209) 9.4 MG/DL LIPID [id number] 00:00:00 Test Item Value Reference Range Interpretation Comments CHOLESTEROL (test code = 2210) 262 MG/DL TRIGLYCERIDES (test code = 2232) 300 MG/DL HDL CHOLESTEROL (test code = 2220) 36 MG/DL CALC LDL CHOL (test code = 2237) 166 MG/DL RISK RATIO LDL/HDL (test code = 4.61 RATIO 2238) HEMOGLOBIN [id number] 00:00:00 Test Item Value Reference Range Interpretation Comments HEMOGLOBIN A1c (test code = 36499) 6.2 % HEMOGLOBIN [id number] 00:00:00 Test Item Value Reference Range Interpretation Comments HEMOGLOBIN A1c (test code = 07247) 6.2 % [id number] 00:00:00 Test Item Value Reference Range Interpretation Comments TSH, THIRD GENERATION (test code 0.988 UIU/ML = 2821) [id number] 00:00:00 Test Item Value Reference Range Interpretation Comments TSH, THIRD GENERATION (test code 0.988 UIU/ML = 2821) BASIC METABOLIC [id number] 00:00:00 Test Item Value Reference Range Interpretation Comments GLUCOSE (test code = 2217) 135 MG/DL BUN (test code = 2208) 25 MG/DL CREATININE (test code = 2214) 0.76 MG/DL eGFR AMER. (test code 101 ML/MIN/1.73 = 04977) eGFR NON- AMER. (test 87 ML/MIN/1.73 code = 46748) SODIUM (test code = 2231) 139 MEQ/L POTASSIUM (test code = 2228) 4.7 MEQ/L CHLORIDE (test code = 2215) 99 MEQ/L CARBON DIOXIDE (test code = 26 MEQ/L 2206) CALCIUM (test code = 2209) 9.4 MG/DL BASIC METABOLIC [id number] 00:00:00 Test Item Value Reference Range Interpretation Comments GLUCOSE (test code = 2217) 135 MG/DL BUN (test code = 2208) 25 MG/DL CREATININE (test code = 2214) 0.76 MG/DL eGFR AMER. (test code 101 ML/MIN/1.73 = 89489) eGFR NON- AMER. (test 87 ML/MIN/1.73 code = 98864) SODIUM (test code = 2231) 139 MEQ/L POTASSIUM (test code = 2228) 4.7 MEQ/L CHLORIDE (test code = 2215) 99 MEQ/L CARBON DIOXIDE (test code = 26 MEQ/L 2206) CALCIUM (test code = 2209) 9.4 MG/DL LIPID [id number] 00:00:00 Test Item Value Reference Range Interpretation Comments CHOLESTEROL (test code = 2210) 262 MG/DL TRIGLYCERIDES (test code = 2232) 300 MG/DL HDL CHOLESTEROL (test code = 2220) 36 MG/DL CALC LDL CHOL (test code = 2237) 166 MG/DL RISK RATIO LDL/HDL (test code = 4.61 RATIO 2238) LIPID [id number] 00:00:00 Test Item Value Reference Range Interpretation Comments CHOLESTEROL (test code = 2210) 262 MG/DL TRIGLYCERIDES (test code = 2232) 300 MG/DL HDL CHOLESTEROL (test code = 2220) 36 MG/DL CALC LDL CHOL (test code = 2237) 166 MG/DL RISK RATIO LDL/HDL (test code = 4.61 RATIO 2238) HEMOGLOBIN [id number] 00:00:00 Test Item Value Reference Range Interpretation Comments HEMOGLOBIN A1c (test code = 46138) 6.2 % HEMOGLOBIN [id number] 00:00:00 Test Item Value Reference Range Interpretation Comments HEMOGLOBIN A1c (test code = 95555) 6.2 % HEMOGLOBIN [id number] 00:00:00 Test Item Value Reference Range Interpretation Comments HEMOGLOBIN A1c (test code = 40010) 6.2 % [id number] 00:00:00 Test Item Value Reference Range Interpretation Comments TSH, THIRD GENERATION (test code 0.988 UIU/ML = 2821) [id number] 00:00:00 Test Item Value Reference Range Interpretation Comments TSH, THIRD GENERATION (test code 0.988 UIU/ML = 2821) [id number] 00:00:00 Test Item Value Reference Range Interpretation Comments TSH, THIRD GENERATION (test code 0.988 UIU/ML = 2821) COMPREHENSIVE METABOLIC [id number] 00:00:00 Test Item Value Reference Range Interpretation Comments GLUCOSE (test code = 2217) 109 MG/DL BUN (test code = 2208) 25 MG/DL CREATININE (test code = 2214) 0.78 MG/DL eGFR AMER. (test code 98 ML/MIN/1.73 = 86614) eGFR NON- AMER. (test 84 ML/MIN/1.73 code = 22179) CALC BUN/CREAT (test code = 32 RATIO [...] code = 2219) 25 U/L COMPREHENSIVE METABOLIC [id number] 00:00:00 Test Item Value Reference Range Interpretation Comments GLUCOSE (test code = 2217) 109 MG/DL BUN (test code = 2208) 25 MG/DL CREATININE (test code = 2214) 0.78 MG/DL eGFR AMER. (test code 98 ML/MIN/1.73 = 73447) eGFR NON- AMER. (test 84 ML/MIN/1.73 code = 17420) CALC BUN/CREAT (test code = 32 RATIO [...] (test code = 2219) 25 U/L LIPID [id number] 00:00:00 Test Item Value Reference Range Interpretation Comments CHOLESTEROL (test code = 2210) 295 MG/DL TRIGLYCERIDES (test code = 2232) 218 MG/DL HDL CHOLESTEROL (test code = 2220) 46 MG/DL CALC LDL CHOL (test code = 2237) 205 MG/DL RISK RATIO LDL/HDL (test code = 4.47 RATIO 2238) LIPID [id number] 00:00:00 Test Item Value Reference Range Interpretation Comments CHOLESTEROL (test code = 2210) 295 MG/DL TRIGLYCERIDES (test code = 2232) 218 MG/DL HDL CHOLESTEROL (test code = 2220) 46 MG/DL CALC LDL CHOL (test code = 2237) 205 MG/DL RISK RATIO LDL/HDL (test code = 4.47 RATIO 2238) HEMOGLOBIN [id number] 00:00:00 Test Item Value Reference Range Interpretation Comments HEMOGLOBIN A1c (test code = 72928) 7.0 % HEMOGLOBIN [id number] 00:00:00 Test Item Value Reference Range Interpretation Comments HEMOGLOBIN A1c (test code = 03114) 7.0 % HEMOGLOBIN [id number] 00:00:00 Test Item Value Reference Range Interpretation Comments HEMOGLOBIN A1c (test code = 48898) 7.0 % [id number] 00:00:00 Test Item Value Reference Range Interpretation Comments TSH, THIRD GENERATION (test code 0.565 UIU/ML = 2821) [id number] 00:00:00 Test Item Value Reference Range Interpretation Comments TSH, THIRD GENERATION (test code 0.565 UIU/ML = 2821) [id number] 00:00:00 Test Item Value Reference Range Interpretation Comments TSH, THIRD GENERATION (test code 0.565 UIU/ML = 2821) COMPREHENSIVE METABOLIC [id number] 00:00:00 Test Item Value Reference Range Interpretation Comments GLUCOSE (test code = 2217) 109 MG/DL BUN (test code = 2208) 25 MG/DL CREATININE (test code = 2214) 0.78 MG/DL eGFR AMER. (test code 98 ML/MIN/1.73 = 69828) eGFR NON- AMER. (test 84 ML/MIN/1.73 code = 38030) CALC BUN/CREAT (test code = 32 RATIO [...] code = 2219) 25 U/L COMPREHENSIVE METABOLIC [id number] 00:00:00 Test Item Value Reference Range Interpretation Comments GLUCOSE (test code = 2217) 109 MG/DL BUN (test code = 2208) 25 MG/DL CREATININE (test code = 2214) 0.78 MG/DL eGFR AMER. (test code 98 ML/MIN/1.73 = 14464) eGFR NON- AMER. (test 84 ML/MIN/1.73 code = 82324) CALC BUN/CREAT (test code = 32 RATIO [...] (test code = 2219) 25 U/L LIPID [id number] 00:00:00 Test Item Value Reference Range Interpretation Comments CHOLESTEROL (test code = 2210) 295 MG/DL TRIGLYCERIDES (test code = 2232) 218 MG/DL HDL CHOLESTEROL (test code = 2220) 46 MG/DL CALC LDL CHOL (test code = 2237) 205 MG/DL RISK RATIO LDL/HDL (test code = 4.47 RATIO 2238) LIPID [id number] 00:00:00 Test Item Value Reference Range Interpretation Comments CHOLESTEROL (test code = 2210) 295 MG/DL TRIGLYCERIDES (test code = 2232) 218 MG/DL HDL CHOLESTEROL (test code = 2220) 46 MG/DL CALC LDL CHOL (test code = 2237) 205 MG/DL RISK RATIO LDL/HDL (test code = 4.47 RATIO 2238) HEMOGLOBIN [id number] 00:00:00 Test Item Value Reference Range Interpretation Comments HEMOGLOBIN A1c (test code = 13762) 7.0 % HEMOGLOBIN [id number] 00:00:00 Test Item Value Reference Range Interpretation Comments HEMOGLOBIN A1c (test code = 32876) 7.0 % HEMOGLOBIN [id number] 00:00:00 Test Item Value Reference Range Interpretation Comments HEMOGLOBIN A1c (test code = 39492) 7.0 % [id number] 00:00:00 Test Item Value Reference Range Interpretation Comments TSH, THIRD GENERATION (test code 0.565 UIU/ML = 2821) [id number] 00:00:00 Test Item Value Reference Range Interpretation Comments TSH, THIRD GENERATION (test code 0.565 UIU/ML = 2821) [id number] 00:00:00 Test Item Value Reference Range Interpretation Comments TSH, THIRD GENERATION (test code 0.565 UIU/ML = 2821) COMPREHENSIVE METABOLIC [id number] 00:00:00 Test Item Value Reference Range Interpretation Comments GLUCOSE (test code = 2217) 109 MG/DL BUN (test code = 2208) 25 MG/DL CREATININE (test code = 2214) 0.78 MG/DL eGFR AMER. (test code 98 ML/MIN/1.73 = 01344) eGFR NON- AMER. (test 84 ML/MIN/1.73 code = 62738) CALC BUN/CREAT (test code = 32 RATIO [...] (test code = 2219) 25 U/L LIPID [id number] 00:00:00 Test Item Value Reference Range Interpretation Comments CHOLESTEROL (test code = 2210) 295 MG/DL TRIGLYCERIDES (test code = 2232) 218 MG/DL HDL CHOLESTEROL (test code = 2220) 46 MG/DL CALC LDL CHOL (test code = 2237) 205 MG/DL RISK RATIO LDL/HDL (test code = 4.47 RATIO 2238) HEMOGLOBIN [id number] 00:00:00 Test Item Value Reference Range Interpretation Comments HEMOGLOBIN A1c (test code = 32185) 7.0 % HEMOGLOBIN [id number] 00:00:00 Test Item Value Reference Range Interpretation Comments HEMOGLOBIN A1c (test code = 22532) 7.0 % [id number] 00:00:00 Test Item Value Reference Range Interpretation Comments TSH, THIRD GENERATION (test code 0.565 UIU/ML = 2821) [id number] 00:00:00 Test Item Value Reference Range Interpretation Comments TSH, THIRD GENERATION (test code 0.565 UIU/ML = 2821) COMPREHENSIVE METABOLIC [id number] 00:00:00 Test Item Value Reference Range Interpretation Comments GLUCOSE (test code = 2217) 109 MG/DL BUN (test code = 2208) 25 MG/DL CREATININE (test code = 2214) 0.78 MG/DL eGFR AMER. (test code 98 ML/MIN/1.73 = 22202) eGFR NON- AMER. (test 84 ML/MIN/1.73 code = 70615) CALC BUN/CREAT (test code = 32 RATIO [...] code = 2219) 25 U/L COMPREHENSIVE METABOLIC [id number] 00:00:00 Test Item Value Reference Range Interpretation Comments GLUCOSE (test code = 2217) 109 MG/DL BUN (test code = 2208) 25 MG/DL CREATININE (test code = 2214) 0.78 MG/DL eGFR AMER. (test code 98 ML/MIN/1.73 = 34110) eGFR NON- AMER. (test 84 ML/MIN/1.73 code = 69276) CALC BUN/CREAT (test code = 32 RATIO [...] (test code = 2219) 25 U/L LIPID [id number] 00:00:00 Test Item Value Reference Range Interpretation Comments CHOLESTEROL (test code = 2210) 295 MG/DL TRIGLYCERIDES (test code = 2232) 218 MG/DL HDL CHOLESTEROL (test code = 2220) 46 MG/DL CALC LDL CHOL (test code = 2237) 205 MG/DL RISK RATIO LDL/HDL (test code = 4.47 RATIO 2238) LIPID [id number] 00:00:00 Test Item Value Reference Range Interpretation Comments CHOLESTEROL (test code = 2210) 295 MG/DL TRIGLYCERIDES (test code = 2232) 218 MG/DL HDL CHOLESTEROL (test code = 2220) 46 MG/DL CALC LDL CHOL (test code = 2237) 205 MG/DL RISK RATIO LDL/HDL (test code = 4.47 RATIO 2238) HEMOGLOBIN [id number] 00:00:00 Test Item Value Reference Range Interpretation Comments HEMOGLOBIN A1c (test code = 84879) 7.0 % HEMOGLOBIN [id number] 00:00:00 Test Item Value Reference Range Interpretation Comments HEMOGLOBIN A1c (test code = 98964) 7.0 % HEMOGLOBIN [id number] 00:00:00 Test Item Value Reference Range Interpretation Comments HEMOGLOBIN A1c (test code = 60595) 7.0 % [id number] 00:00:00 Test Item Value Reference Range Interpretation Comments TSH, THIRD GENERATION (test code 0.565 UIU/ML = 2821) [id number] 00:00:00 Test Item Value Reference Range Interpretation Comments TSH, THIRD GENERATION (test code 0.565 UIU/ML = 2821) [id number] 00:00:00 Test Item Value Reference Range Interpretation Comments TSH, THIRD GENERATION (test code 0.565 UIU/ML = 2821) [id number] 00:00:00 Test Item Value Reference Range Interpretation Comments TSH, THIRD GENERATION (test code 0.379 UIU/ML = 2821) [id number] 00:00:00 Test Item Value Reference Range Interpretation Comments TSH, THIRD GENERATION (test code 0.379 UIU/ML = 2821) [id number] 00:00:00 Test Item Value Reference Range Interpretation Comments TSH, THIRD GENERATION (test code 0.379 UIU/ML = 2821) [id number] 00:00:00 Test Item Value Reference Range Interpretation Comments TSH, THIRD GENERATION (test code 0.379 UIU/ML = 2821) [id number] 00:00:00 Test Item Value Reference Range Interpretation Comments TSH, THIRD GENERATION (test code 0.379 UIU/ML = 2821) [id number] 00:00:00 Test Item Value Reference Range Interpretation Comments TSH, THIRD GENERATION (test code 0.379 UIU/ML = 2821) [id number] 00:00:00 Test Item Value Reference Range Interpretation Comments TSH, THIRD GENERATION (test code 0.379 UIU/ML = 2821) [id number] 00:00:00 Test Item Value Reference Range Interpretation Comments TSH, THIRD GENERATION (test code 0.379 UIU/ML = 2821) [id number] 00:00:00 Test Item Value Reference Range Interpretation Comments TSH, THIRD GENERATION (test code 0.379 UIU/ML = 2821) [id number] 00:00:00 Test Item Value Reference Range Interpretation Comments TSH, THIRD GENERATION (test code 0.379 UIU/ML = 2821) [id number] 00:00:00 Test Item Value Reference Range Interpretation Comments TSH, THIRD GENERATION (test code 0.379 UIU/ML = 2821) CULTURE, [id number] 00:00:00 Test Item Value Reference Range Interpretation Comments CULTURE, URINE (test SPECIMEN NUMBER: code = 63019) [id number] CULTURE, [id number] 00:00:00 Test Item Value Reference Range Interpretation Comments CULTURE, URINE (test SPECIMEN NUMBER: code = 12546) [id number] CULTURE, [id number] 00:00:00 Test Item Value Reference Range Interpretation Comments CULTURE, URINE (test SPECIMEN NUMBER: code = 83711) [id number] CULTURE, [id number] 00:00:00 Test Item Value Reference Range Interpretation Comments CULTURE, URINE (test SPECIMEN NUMBER: code = 78810) [id number] CULTURE, [id number] 00:00:00 Test Item Value Reference Range Interpretation Comments CULTURE, URINE (test SPECIMEN NUMBER: code = 64136) [id number] CULTURE, [id number] 00:00:00 Test Item Value Reference Range Interpretation Comments CULTURE, URINE (test SPECIMEN NUMBER: code = 23891) [id number] CULTURE, [id number] 00:00:00 Test Item Value Reference Range Interpretation Comments CULTURE, URINE (test SPECIMEN NUMBER: code = 17986) [id number] COMPREHENSIVE METABOLIC [id number] 00:00:00 Test Item Value Reference Range Interpretation Comments GLUCOSE (test code = 2217) 128 MG/DL BUN (test code = 2208) 26 MG/DL CREATININE (test code = 2214) 0.92 MG/DL eGFR AMER. (test code 81 ML/MIN/1.73 = 82390) eGFR NON- AMER. (test 70 ML/MIN/1.73 code = 90173) CALC BUN/CREAT (test code = 28 RATIO [...] code = 2219) 29 U/L COMPREHENSIVE METABOLIC [id number] 00:00:00 Test Item Value Reference Range Interpretation Comments GLUCOSE (test code = 2217) 128 MG/DL BUN (test code = 2208) 26 MG/DL CREATININE (test code = 2214) 0.92 MG/DL eGFR AMER. (test code 81 ML/MIN/1.73 = 88522) eGFR NON- AMER. (test 70 ML/MIN/1.73 code = 06737) CALC BUN/CREAT (test code = 28 RATIO [...] code = 2219) 29 U/L ACUTE HEPATITIS [id number] 00:00:00 Test Item Value Reference Range Interpretation Comments HEPATITIS A IgM (test code = NON-REACTIVE 38738) HEPATITIS B CORE IgM (test code NON-REACTIVE = 4644) HEPATITIS B SURF AG (test code = NON-REACTIVE 2739) HEPATITIS C ANTIBODY (test code NON-REACTIVE = 4675) INTERPRETATION HEPATITIS A: (NOTE) (test code = 2552) INTERPRETATION HEPATITIS B: (NOTE) (test code = 02380) INTERPRETATION HEPATITIS C: (NOTE) (test code = 22489) ACUTE HEPATITIS [id number] 00:00:00 Test Item Value Reference Range Interpretation Comments HEPATITIS A IgM (test code = NON-REACTIVE 43864) HEPATITIS B CORE IgM (test code NON-REACTIVE = 4644) HEPATITIS B SURF AG (test code = NON-REACTIVE 2739) HEPATITIS C ANTIBODY (test code NON-REACTIVE = 4675) INTERPRETATION HEPATITIS A: (NOTE) (test code = 2552) INTERPRETATION HEPATITIS B: (NOTE) (test code = 39483) INTERPRETATION HEPATITIS C: (NOTE) (test code = 42733) [id number] 00:00:00 Test Item Value Reference Range Interpretation Comments AMYLASE (test code = 2205) 32 U/L [id number] 00:00:00 Test Item Value Reference Range Interpretation Comments AMYLASE (test code = 2205) 32 U/L [id number] 00:00:00 Test Item Value Reference Range Interpretation Comments LIPASE (test code = 2057) 22 U/L [id number] 00:00:00 Test Item Value Reference Range Interpretation Comments LIPASE (test code = 2057) 22 U/L [id number] 00:00:00 Test Item Value Reference Range Interpretation Comments LIPASE (test code = 2057) 22 U/L COMPREHENSIVE METABOLIC [id number] 00:00:00 Test Item Value Reference Range Interpretation Comments GLUCOSE (test code = 2217) 128 MG/DL BUN (test code = 2208) 26 MG/DL CREATININE (test code = 2214) 0.92 MG/DL eGFR AMER. (test code 81 ML/MIN/1.73 = 85206) eGFR NON- AMER. (test 70 ML/MIN/1.73 code = 37175) CALC BUN/CREAT (test code = 28 RATIO [...] code = 2219) 29 U/L COMPREHENSIVE METABOLIC [id number] 00:00:00 Test Item Value Reference Range Interpretation Comments GLUCOSE (test code = 2217) 128 MG/DL BUN (test code = 2208) 26 MG/DL CREATININE (test code = 2214) 0.92 MG/DL eGFR AMER. (test code 81 ML/MIN/1.73 = 90581) eGFR NON- AMER. (test 70 ML/MIN/1.73 code = 44167) CALC BUN/CREAT (test code = 28 RATIO [...] code = 2219) 29 U/L ACUTE HEPATITIS [id number] 00:00:00 Test Item Value Reference Range Interpretation Comments HEPATITIS A IgM (test code = NON-REACTIVE 24459) HEPATITIS B CORE IgM (test code NON-REACTIVE = 4644) HEPATITIS B SURF AG (test code = NON-REACTIVE 2739) HEPATITIS C ANTIBODY (test code NON-REACTIVE = 4675) INTERPRETATION HEPATITIS A: (NOTE) (test code = 2552) INTERPRETATION HEPATITIS B: (NOTE) (test code = 46449) INTERPRETATION HEPATITIS C: (NOTE) (test code = 28904) ACUTE HEPATITIS [id number] 00:00:00 Test Item Value Reference Range Interpretation Comments HEPATITIS A IgM (test code = NON-REACTIVE 16744) HEPATITIS B CORE IgM (test code NON-REACTIVE = 4644) HEPATITIS B SURF AG (test code = NON-REACTIVE 2739) HEPATITIS C ANTIBODY (test code NON-REACTIVE = 4675) INTERPRETATION HEPATITIS A: (NOTE) (test code = 2552) INTERPRETATION HEPATITIS B: (NOTE) (test code = 39895) INTERPRETATION HEPATITIS C: (NOTE) (test code = 55514) [id number] 00:00:00 Test Item Value Reference Range Interpretation Comments AMYLASE (test code = 2205) 32 U/L [id number] 00:00:00 Test Item Value Reference Range Interpretation Comments AMYLASE (test code = 2205) 32 U/L [id number] 00:00:00 Test Item Value Reference Range Interpretation Comments LIPASE (test code = 2057) 22 U/L [id number] 00:00:00 Test Item Value Reference Range Interpretation Comments LIPASE (test code = 2057) 22 U/L [id number] 00:00:00 Test Item Value Reference Range Interpretation Comments LIPASE (test code = 2057) 22 U/L COMPREHENSIVE METABOLIC [id number] 00:00:00 Test Item Value Reference Range Interpretation Comments GLUCOSE (test code = 2217) 128 MG/DL BUN (test code = 2208) 26 MG/DL CREATININE (test code = 2214) 0.92 MG/DL eGFR AMER. (test code 81 ML/MIN/1.73 = 59876) eGFR NON- AMER. (test 70 ML/MIN/1.73 code = 00542) CALC BUN/CREAT (test code = 28 RATIO [...] code = 2219) 29 U/L ACUTE HEPATITIS [id number] 00:00:00 Test Item Value Reference Range Interpretation Comments HEPATITIS A IgM (test code = NON-REACTIVE 36423) HEPATITIS B CORE IgM (test code NON-REACTIVE = 4344) HEPATITIS B SURF AG (test code = NON-REACTIVE 2262) HEPATITIS C ANTIBODY (test code NON-REACTIVE = 5844) INTERPRETATION HEPATITIS A: (NOTE) (test code = 2552) INTERPRETATION HEPATITIS B: (NOTE) (test code = 82080) INTERPRETATION HEPATITIS C: (NOTE) (test code = 73690) [id number] 00:00:00 Test Item Value Reference Range Interpretation Comments AMYLASE (test code = 2205) 32 U/L [id number] 00:00:00 Test Item Value Reference Range Interpretation Comments LIPASE (test code = 2058) 22 U/L [id number] 00:00:00 Test Item Value Reference Range Interpretation Comments LIPASE (test code = 205) 22 U/L COMPREHENSIVE METABOLIC [id number] 00:00:00 Test Item Value Reference Range Interpretation Comments GLUCOSE (test code = 2217) 128 MG/DL BUN (test code = 2208) 26 MG/DL CREATININE (test code = 2214) 0.92 MG/DL eGFR AMER. (test code 81 ML/MIN/1.73 = 98646) eGFR NON- AMER. (test 70 ML/MIN/1.73 code = 24843) CALC BUN/CREAT (test code = 28 RATIO [...] code = 2219) 29 U/L COMPREHENSIVE METABOLIC [id number] 00:00:00 Test Item Value Reference Range Interpretation Comments GLUCOSE (test code = 2217) 128 MG/DL BUN (test code = 2208) 26 MG/DL CREATININE (test code = 2214) 0.92 MG/DL eGFR AMER. (test code 81 ML/MIN/1.73 = 53427) eGFR NON- AMER. (test 70 ML/MIN/1.73 code = 57293) CALC BUN/CREAT (test code = 28 RATIO [...] code = 2219) 29 U/L ACUTE HEPATITIS [id number] 00:00:00 Test Item Value Reference Range Interpretation Comments HEPATITIS A IgM (test code = NON-REACTIVE 90571) HEPATITIS B CORE IgM (test code NON-REACTIVE = 4644) HEPATITIS B SURF AG (test code = NON-REACTIVE 2739) HEPATITIS C ANTIBODY (test code NON-REACTIVE = 4675) INTERPRETATION HEPATITIS A: (NOTE) (test code = 2552) INTERPRETATION HEPATITIS B: (NOTE) (test code = 15077) INTERPRETATION HEPATITIS C: (NOTE) (test code = 12091) ACUTE HEPATITIS [id number] 00:00:00 Test Item Value Reference Range Interpretation Comments HEPATITIS A IgM (test code = NON-REACTIVE 59521) HEPATITIS B CORE IgM (test code NON-REACTIVE = 4644) HEPATITIS B SURF AG (test code = NON-REACTIVE 2739) HEPATITIS C ANTIBODY (test code NON-REACTIVE = 4675) INTERPRETATION HEPATITIS A: (NOTE) (test code = 2552) INTERPRETATION HEPATITIS B: (NOTE) (test code = 38024) INTERPRETATION HEPATITIS C: (NOTE) (test code = 77932) [id number] 00:00:00 Test Item Value Reference Range Interpretation Comments AMYLASE (test code = 2205) 32 U/L [id number] 00:00:00 Test Item Value Reference Range Interpretation Comments AMYLASE (test code = 2205) 32 U/L [id number] 00:00:00 Test Item Value Reference Range Interpretation Comments LIPASE (test code = 2057) 22 U/L [id number] 00:00:00 Test Item Value Reference Range Interpretation Comments LIPASE (test code = 2057) 22 U/L [id number] 00:00:00 Test Item Value Reference Range Interpretation Comments LIPASE (test code = 205) 22 U/L [id number] 00:00:00 Test Item Value Reference Range Interpretation Comments TSH, THIRD GENERATION (test code 4.890 UIU/ML = 2821) [id number] 00:00:00 Test Item Value Reference Range Interpretation Comments TSH, THIRD GENERATION (test code 4.890 UIU/ML = 2821) [id number] 00:00:00 Test Item Value Reference Range Interpretation Comments TSH, THIRD GENERATION (test code 4.890 UIU/ML = 2821) COMPREHENSIVE METABOLIC [id number] 00:00:00 Test Item Value Reference Range Interpretation Comments GLUCOSE (test code = 2217) 121 MG/DL BUN (test code = 2208) 40 MG/DL CREATININE (test code = 2214) 1.48 MG/DL eGFR AMER. (test code 45 ML/MIN/1.73 = 97654) eGFR NON- AMER. (test 39 ML/MIN/1.73 code = 30201) CALC BUN/CREAT (test code = 27 RATIO [...] code = 2219) 20 U/L COMPREHENSIVE METABOLIC [id number] 00:00:00 Test Item Value Reference Range Interpretation Comments GLUCOSE (test code = 2217) 121 MG/DL BUN (test code = 2208) 40 MG/DL CREATININE (test code = 2214) 1.48 MG/DL eGFR AMER. (test code 45 ML/MIN/1.73 = 73814) eGFR NON- AMER. (test 39 ML/MIN/1.73 code = 61504) CALC BUN/CREAT (test code = 27 RATIO [...] ALT (test code = 2219) 20 U/L [id number] 00:00:00 Test Item Value Reference Range Interpretation Comments TSH, THIRD GENERATION (test code 4.890 UIU/ML = 2821) [id number] 00:00:00 Test Item Value Reference Range Interpretation Comments TSH, THIRD GENERATION (test code 4.890 UIU/ML = 2821) [id number] 00:00:00 Test Item Value Reference Range Interpretation Comments TSH, THIRD GENERATION (test code 4.890 UIU/ML = 2821) COMPREHENSIVE METABOLIC [id number] 00:00:00 Test Item Value Reference Range Interpretation Comments GLUCOSE (test code = 2217) 121 MG/DL BUN (test code = 2208) 40 MG/DL CREATININE (test code = 2214) 1.48 MG/DL eGFR AMER. (test code 45 ML/MIN/1.73 = 33561) eGFR NON- AMER. (test 39 ML/MIN/1.73 code = 42537) CALC BUN/CREAT (test code = 27 RATIO [...] code = 2219) 20 U/L COMPREHENSIVE METABOLIC [id number] 00:00:00 Test Item Value Reference Range Interpretation Comments GLUCOSE (test code = 2217) 121 MG/DL BUN (test code = 2208) 40 MG/DL CREATININE (test code = 2214) 1.48 MG/DL eGFR AMER. (test code 45 ML/MIN/1.73 = 42597) eGFR NON- AMER. (test 39 ML/MIN/1.73 code = 62724) CALC BUN/CREAT (test code = 27 RATIO [...] ALT (test code = 2219) 20 U/L [id number] 00:00:00 Test Item Value Reference Range Interpretation Comments TSH, THIRD GENERATION (test code 4.890 UIU/ML = 2821) [id number] 00:00:00 Test Item Value Reference Range Interpretation Comments TSH, THIRD GENERATION (test code 4.890 UIU/ML = 2821) COMPREHENSIVE METABOLIC [id number] 00:00:00 Test Item Value Reference Range Interpretation Comments GLUCOSE (test code = 2217) 121 MG/DL BUN (test code = 2208) 40 MG/DL CREATININE (test code = 2214) 1.48 MG/DL eGFR AMER. (test code 45 ML/MIN/1.73 = 62004) eGFR NON- AMER. (test 39 ML/MIN/1.73 code = 42969) CALC BUN/CREAT (test code = 27 RATIO [...] ALT (test code = 2219) 20 U/L [id number] 00:00:00 Test Item Value Reference Range Interpretation Comments TSH, THIRD GENERATION (test code 4.890 UIU/ML = 2821) [id number] 00:00:00 Test Item Value Reference Range Interpretation Comments TSH, THIRD GENERATION (test code 4.890 UIU/ML = 2821) [id number] 00:00:00 Test Item Value Reference Range Interpretation Comments TSH, THIRD GENERATION (test code 4.890 UIU/ML = 2821) COMPREHENSIVE METABOLIC [id number] 00:00:00 Test Item Value Reference Range Interpretation Comments GLUCOSE (test code = 2217) 121 MG/DL BUN (test code = 2208) 40 MG/DL CREATININE (test code = 2214) 1.48 MG/DL eGFR AMER. (test code 45 ML/MIN/1.73 = 72072) eGFR NON- AMER. (test 39 ML/MIN/1.73 code = 25120) CALC BUN/CREAT (test code = 27 RATIO [...] code = 2219) 20 U/L COMPREHENSIVE METABOLIC [id number] 00:00:00 Test Item Value Reference Range Interpretation Comments GLUCOSE (test code = 2217) 121 MG/DL BUN (test code = 2208) 40 MG/DL CREATININE (test code = 2214) 1.48 MG/DL eGFR AMER. (test code 45 ML/MIN/1.73 = 47250) eGFR NON- AMER. (test 39 ML/MIN/1.73 code = 52301) CALC BUN/CREAT (test code = 27 RATIO [...] (test code = 2219) 20 U/L LIPID [id number] 00:00:00 Test Item Value Reference Range Interpretation Comments CHOLESTEROL (test code = 2210) 261 MG/DL TRIGLYCERIDES (test code = 2232) 165 MG/DL HDL CHOLESTEROL (test code = 2220) 58 MG/DL CALC LDL CHOL (test code = 2237) 170 MG/DL RISK RATIO LDL/HDL (test code = 2.93 RATIO 2238) LIPID [id number] 00:00:00 Test Item Value Reference Range Interpretation Comments CHOLESTEROL (test code = 2210) 261 MG/DL TRIGLYCERIDES (test code = 2232) 165 MG/DL HDL CHOLESTEROL (test code = 2220) 58 MG/DL CALC LDL CHOL (test code = 2237) 170 MG/DL RISK RATIO LDL/HDL (test code = 2.93 RATIO 2238) CBC W/AUTO [id number] 00:00:00 Test Item Value Reference Range Interpretation [...] code = 1015) 378 K/UL CBC W/AUTO [id number] 00:00:00 Test Item Value Reference Range Interpretation [...] code = 1015) 378 K/UL CBC W/AUTO [id number] 00:00:00 Test Item Value Reference Range Interpretation [...] (test code = 1015) 378 K/UL HEMOGLOBIN [id number] 00:00:00 Test Item Value Reference Range Interpretation Comments HEMOGLOBIN A1c (test code = 97197) 6.4 % HEMOGLOBIN [id number] 00:00:00 Test Item Value Reference Range Interpretation Comments HEMOGLOBIN A1c (test code = 65712) 6.4 % HEMOGLOBIN [id number] 00:00:00 Test Item Value Reference Range Interpretation Comments HEMOGLOBIN A1c (test code = 84111) 6.4 % [id number] 00:00:00 Test Item Value Reference Range Interpretation Comments TSH (test code = 2821) 5.290 UIU/ML [id number] 00:00:00 Test Item Value Reference Range Interpretation Comments TSH (test code = 2821) 5.290 UIU/ML [id number] 00:00:00 Test Item Value Reference Range Interpretation Comments TSH (test code = 2821) 5.290 UIU/ML LIPID [id number] 00:00:00 Test Item Value Reference Range Interpretation Comments CHOLESTEROL (test code = 2210) 261 MG/DL TRIGLYCERIDES (test code = 2232) 165 MG/DL HDL CHOLESTEROL (test code = 2220) 58 MG/DL CALC LDL CHOL (test code = 2237) 170 MG/DL RISK RATIO LDL/HDL (test code = 2.93 RATIO 2238) LIPID [id number] 00:00:00 Test Item Value Reference Range Interpretation Comments CHOLESTEROL (test code = 2210) 261 MG/DL TRIGLYCERIDES (test code = 2232) 165 MG/DL HDL CHOLESTEROL (test code = 2220) 58 MG/DL CALC LDL CHOL (test code = 2237) 170 MG/DL RISK RATIO LDL/HDL (test code = 2.93 RATIO 2238) CBC W/AUTO [id number] 00:00:00 Test Item Value Reference Range Interpretation [...] code = 1015) 378 K/UL CBC W/AUTO [id number] 00:00:00 Test Item Value Reference Range Interpretation [...] code = 1015) 378 K/UL CBC W/AUTO [id number] 00:00:00 Test Item Value Reference Range Interpretation [...] (test code = 1015) 378 K/UL HEMOGLOBIN [id number] 00:00:00 Test Item Value Reference Range Interpretation Comments HEMOGLOBIN A1c (test code = 19615) 6.4 % HEMOGLOBIN [id number] 00:00:00 Test Item Value Reference Range Interpretation Comments HEMOGLOBIN A1c (test code = 31792) 6.4 % HEMOGLOBIN [id number] 00:00:00 Test Item Value Reference Range Interpretation Comments HEMOGLOBIN A1c (test code = 26189) 6.4 % [id number] 00:00:00 Test Item Value Reference Range Interpretation Comments TSH (test code = 2821) 5.290 UIU/ML [id number] 00:00:00 Test Item Value Reference Range Interpretation Comments TSH (test code = 2821) 5.290 UIU/ML [id number] 00:00:00 Test Item Value Reference Range Interpretation Comments TSH (test code = 2821) 5.290 UIU/ML LIPID [id number] 00:00:00 Test Item Value Reference Range Interpretation Comments CHOLESTEROL (test code = 2210) 261 MG/DL TRIGLYCERIDES (test code = 2232) 165 MG/DL HDL CHOLESTEROL (test code = 2220) 58 MG/DL CALC LDL CHOL (test code = 2237) 170 MG/DL RISK RATIO LDL/HDL (test code = 2.93 RATIO 2238) CBC W/AUTO [id number] 00:00:00 Test Item Value Reference Range Interpretation [...] code = 1015) 378 K/UL CBC W/AUTO [id number] 00:00:00 Test Item Value Reference Range Interpretation [...] (test code = 1015) 378 K/UL HEMOGLOBIN [id number] 00:00:00 Test Item Value Reference Range Interpretation Comments HEMOGLOBIN A1c (test code = 67101) 6.4 % HEMOGLOBIN [id number] 00:00:00 Test Item Value Reference Range Interpretation Comments HEMOGLOBIN A1c (test code = 61925) 6.4 % [id number] 00:00:00 Test Item Value Reference Range Interpretation Comments TSH (test code = 2821) 5.290 UIU/ML [id number] 00:00:00 Test Item Value Reference Range Interpretation Comments TSH (test code = 2821) 5.290 UIU/ML LIPID [id number] 00:00:00 Test Item Value Reference Range Interpretation Comments CHOLESTEROL (test code = 2210) 261 MG/DL TRIGLYCERIDES (test code = 2232) 165 MG/DL HDL CHOLESTEROL (test code = 2220) 58 MG/DL CALC LDL CHOL (test code = 2237) 170 MG/DL RISK RATIO LDL/HDL (test code = 2.93 RATIO 2238) LIPID [id number] 00:00:00 Test Item Value Reference Range Interpretation Comments CHOLESTEROL (test code = 2210) 261 MG/DL TRIGLYCERIDES (test code = 2232) 165 MG/DL HDL CHOLESTEROL (test code = 2220) 58 MG/DL CALC LDL CHOL (test code = 2237) 170 MG/DL RISK RATIO LDL/HDL (test code = 2.93 RATIO 2238) CBC W/AUTO [id number] 00:00:00 Test Item Value Reference Range Interpretation [...] code = 1015) 378 K/UL CBC W/AUTO [id number] 00:00:00 Test Item Value Reference Range Interpretation [...] code = 1015) 378 K/UL CBC W/AUTO [id number] 00:00:00 Test Item Value Reference Range Interpretation [...] (test code = 1015) 378 K/UL HEMOGLOBIN [id number] 00:00:00 Test Item Value Reference Range Interpretation Comments HEMOGLOBIN A1c (test code = 53377) 6.4 % HEMOGLOBIN [id number] 00:00:00 Test Item Value Reference Range Interpretation Comments HEMOGLOBIN A1c (test code = 14826) 6.4 % HEMOGLOBIN [id number] 00:00:00 Test Item Value Reference Range Interpretation Comments HEMOGLOBIN A1c (test code = 73865) 6.4 % [id number] 00:00:00 Test Item Value Reference Range Interpretation Comments TSH (test code = 2821) 5.290 UIU/ML [id number] 00:00:00 Test Item Value Reference Range Interpretation Comments TSH (test code = 2821) 5.290 UIU/ML [id number] 00:00:00 Test Item Value Reference Range Interpretation [...] code = 2821) 1.030 UIU/ML COMPREHENSIVE METABOLIC [id number] 00:00:00 Test Item Value Reference Range Interpretation Comments GLUCOSE (test code = 2217) 106 MG/DL BUN (test code = 2208) 23 MG/DL CREATININE (test code = 2214) 0.66 MG/DL eGFR AMER. (test code 114 ML/MIN/1.73 = 30854) eGFR NON- AMER. (test 99 ML/MIN/1.73 code = 29503) CALC BUN/CREAT (test code = 35 RATIO [...] code = 2219) 31 U/L COMPREHENSIVE METABOLIC [id number] 00:00:00 Test Item Value Reference Range Interpretation Comments GLUCOSE (test code = 2217) 106 MG/DL BUN (test code = 2208) 23 MG/DL CREATININE (test code = 2214) 0.66 MG/DL eGFR AMER. (test code 114 ML/MIN/1.73 = 70168) eGFR NON- AMER. (test 99 ML/MIN/1.73 code = 68613) CALC BUN/CREAT (test code = 35 RATIO [...] code = 2821) 0.335 UIU/ML COMPREHENSIVE METABOLIC [id number] 00:00:00 Test Item Value Reference Range Interpretation Comments GLUCOSE (test code = 2217) 106 MG/DL BUN (test code = 2208) 23 MG/DL CREATININE (test code = 2214) 0.66 MG/DL eGFR AMER. (test code 114 ML/MIN/1.73 = 50518) eGFR NON- AMER. (test 99 ML/MIN/1.73 code = 26432) CALC BUN/CREAT (test code = 35 RATIO [...] code = 2219) 31 U/L COMPREHENSIVE METABOLIC [id number] 00:00:00 Test Item Value Reference Range Interpretation Comments GLUCOSE (test code = 2217) 106 MG/DL BUN (test code = 2208) 23 MG/DL CREATININE (test code = 2214) 0.66 MG/DL eGFR AMER. (test code 114 ML/MIN/1.73 = 54856) eGFR NON- AMER. (test 99 ML/MIN/1.73 code = 53275) CALC BUN/CREAT (test code = 35 RATIO [...] code = 2821) 0.335 UIU/ML COMPREHENSIVE METABOLIC [id number] 00:00:00 Test Item Value Reference Range Interpretation Comments GLUCOSE (test code = 2217) 106 MG/DL BUN (test code = 2208) 23 MG/DL CREATININE (test code = 2214) 0.66 MG/DL eGFR AMER. (test code 114 ML/MIN/1.73 = 90078) eGFR NON- AMER. (test 99 ML/MIN/1.73 code = 86927) CALC BUN/CREAT (test code = 35 RATIO [...] code = 2821) 0.335 UIU/ML COMPREHENSIVE METABOLIC [id number] 00:00:00 Test Item Value Reference Range Interpretation Comments GLUCOSE (test code = 2217) 106 MG/DL BUN (test code = 2208) 23 MG/DL CREATININE (test code = 2214) 0.66 MG/DL eGFR AMER. (test code 114 ML/MIN/1.73 = 98347) eGFR NON- AMER. (test 99 ML/MIN/1.73 code = 85068) CALC BUN/CREAT (test code = 35 RATIO [...] code = 2219) 31 U/L COMPREHENSIVE METABOLIC [id number] 00:00:00 Test Item Value Reference Range Interpretation Comments GLUCOSE (test code = 2217) 106 MG/DL BUN (test code = 2208) 23 MG/DL CREATININE (test code = 2214) 0.66 MG/DL eGFR AMER. (test code 114 ML/MIN/1.73 = 72787) eGFR NON- AMER. (test 99 ML/MIN/1.73 code = 71873) CALC BUN/CREAT (test code = 35 RATIO [...] code = 2821) 0.335 UIU/ML COMPREHENSIVE METABOLIC [id number] 00:00:00 Test Item Value Reference Range Interpretation Comments GLUCOSE (test code = 2217) 103 MG/DL BUN (test code = 2208) 15 MG/DL CREATININE (test code = 2214) 0.77 MG/DL eGFR AMER. (test code 101 ML/MIN/1.73 = 10706) eGFR NON- AMER. (test 87 ML/MIN/1.73 code = 38555) CALC BUN/CREAT (test code = 19 RATIO [...] code = 2219) 24 U/L COMPREHENSIVE METABOLIC [id number] 00:00:00 Test Item Value Reference Range Interpretation Comments GLUCOSE (test code = 2217) 103 MG/DL BUN (test code = 2208) 15 MG/DL CREATININE (test code = 2214) 0.77 MG/DL eGFR AMER. (test code 101 ML/MIN/1.73 = 35450) eGFR NON- AMER. (test 87 ML/MIN/1.73 code = 85985) CALC BUN/CREAT (test code = 19 RATIO [...] code = 2821) 0.424 UIU/ML COMPREHENSIVE METABOLIC [id number] 00:00:00 Test Item Value Reference Range Interpretation Comments GLUCOSE (test code = 2217) 103 MG/DL BUN (test code = 2208) 15 MG/DL CREATININE (test code = 2214) 0.77 MG/DL eGFR AMER. (test code 101 ML/MIN/1.73 = 87158) eGFR NON- AMER. (test 87 ML/MIN/1.73 code = 19355) CALC BUN/CREAT (test code = 19 RATIO [...] code = 2219) 24 U/L COMPREHENSIVE METABOLIC [id number] 00:00:00 Test Item Value Reference Range Interpretation Comments GLUCOSE (test code = 2217) 103 MG/DL BUN (test code = 2208) 15 MG/DL CREATININE (test code = 2214) 0.77 MG/DL eGFR AMER. (test code 101 ML/MIN/1.73 = 31835) eGFR NON- AMER. (test 87 ML/MIN/1.73 code = 80732) CALC BUN/CREAT (test code = 19 RATIO [...] code = 2821) 0.424 UIU/ML COMPREHENSIVE METABOLIC [id number] 00:00:00 Test Item Value Reference Range Interpretation Comments GLUCOSE (test code = 2217) 103 MG/DL BUN (test code = 2208) 15 MG/DL CREATININE (test code = 2214) 0.77 MG/DL eGFR AMER. (test code 101 ML/MIN/1.73 = 19216) eGFR NON- AMER. (test 87 ML/MIN/1.73 code = 33787) CALC BUN/CREAT (test code = 19 RATIO [...] code = 2821) 0.424 UIU/ML COMPREHENSIVE METABOLIC [id number] 00:00:00 Test Item Value Reference Range Interpretation Comments GLUCOSE (test code = 2217) 103 MG/DL BUN (test code = 2208) 15 MG/DL CREATININE (test code = 2214) 0.77 MG/DL eGFR AMER. (test code 101 ML/MIN/1.73 = 11825) eGFR NON- AMER. (test 87 ML/MIN/1.73 code = 99087) CALC BUN/CREAT (test code = 19 RATIO [...] code = 2219) 24 U/L COMPREHENSIVE METABOLIC [id number] 00:00:00 Test Item Value Reference Range Interpretation Comments GLUCOSE (test code = 2217) 103 MG/DL BUN (test code = 2208) 15 MG/DL CREATININE (test code = 2214) 0.77 MG/DL eGFR AMER. (test code 101 ML/MIN/1.73 = 66574) eGFR NON- AMER. (test 87 ML/MIN/1.73 code = 59508) CALC BUN/CREAT (test code = 19 RATIO [...] (test code = 2821) 0.424 UIU/ML CULTURE, [id number] 00:00:00 Test Item Value Reference Range Interpretation Comments CULTURE, URINE (test SPECIMEN NUMBER: code = 66757) [id number] CULTURE, [id number] 00:00:00 Test Item Value Reference Range Interpretation Comments CULTURE, URINE (test SPECIMEN NUMBER: code = 52323) [id number] CULTURE, [id number] 00:00:00 Test Item Value Reference Range Interpretation Comments CULTURE, URINE (test SPECIMEN NUMBER: code = 16140) [id number] CULTURE, [id number] 00:00:00 Test Item Value Reference Range Interpretation Comments CULTURE, URINE (test SPECIMEN NUMBER: code = 35824) [id number] CULTURE, [id number] 00:00:00 Test Item Value Reference Range Interpretation Comments CULTURE, URINE (test SPECIMEN NUMBER: code = 98757) [id number] CULTURE, [id number] 00:00:00 Test Item Value Reference Range Interpretation Comments CULTURE, URINE (test SPECIMEN NUMBER: code = 62461) [id number] CULTURE, [id number] 00:00:00 Test Item Value Reference Range Interpretation Comments CULTURE, URINE (test SPECIMEN NUMBER: code = 64303) [id number] CULTURE, [id number] 00:00:00 Test Item Value Reference Range Interpretation Comments CULTURE, URINE (test SPECIMEN NUMBER: code = 32046) [id number] CULTURE, [id number] 00:00:00 Test Item Value Reference Range Interpretation Comments CULTURE, URINE (test SPECIMEN NUMBER: code = 06101) [id number] CULTURE, [id number] 00:00:00 Test Item Value Reference Range Interpretation Comments CULTURE, URINE (test SPECIMEN NUMBER: code = 63945) [id number] CULTURE, [id number] 00:00:00 Test Item Value Reference Range Interpretation Comments CULTURE, URINE (test SPECIMEN NUMBER: code = 88382) [id number] CULTURE, [id number] 00:00:00 Test Item Value Reference Range Interpretation Comments CULTURE, URINE (test SPECIMEN NUMBER: code = 09558) [id number] CULTURE, [id number] 00:00:00 Test Item Value Reference Range Interpretation Comments CULTURE, URINE (test SPECIMEN NUMBER: code = 02610) [id number] CULTURE, [id number] 00:00:00 Test Item Value Reference Range Interpretation Comments CULTURE, URINE (test SPECIMEN NUMBER: code = 74476) [id number]
--- NOTE | 2022-08-06 10:31 | RAD REPORT ---
EXAM DESCRIPTION: US - Abdomen Exam Limited - 08/06/2022 10:12 am CLINICAL HISTORY: Abdominal pain. COMPARISON: None. FINDINGS: The gallbladder wall is not thickened. A gallstone is not seen. The biliary tree is normal caliber. A 3 millimeter cluster polyp IMPRESSION: 3 millimeter cholesterol polyp
[2022-08-06] MEDS ORDERED: KETOROLAC 30 MG/ML INJ ONE (10:50)
[2022-08-06] MEDS ORDERED: ONDANSETRON 4 MG/2 ML VIAL ONE (10:50)
[2022-08-06 11:04] LABS: Absolute Lymphocytes (CBC) 1.9 K/uL (0.7-4.9); Hematocrit 41.1 % (36.0-45.0); Lymphocytes % 23.4 % (15.3-44.8); MCV 92.2 fL (80-100); MPV 6.8 fL (7.6-11.3); RBC Red Blood Cell Count 4.46 M/uL (3.86-4.86)
[2022-08-06 11:16] LABS: Albumin 4.3 g/dL (3.4-5.0); Bilirubin Total 0.4 mg/dL (0.2-1.0); Potassium 4.1 mEq/L (3.5-5.1)
--- NOTE | 2022-08-06 11:44 | ER ---
Nurse's Notes [facility] Name: Jaimie Amanda Age: 61 yrs Sex: Female : 1960 Arrival Date: 08/06/2022 Time: 09:14 Bed External Waiting Private MD: Diagnosis: Abdominal pain, Generalized-chronic;Hyponatremia Presentation: 08/06 10:05 Chief complaint: Patient states: abd pain since last night. Coronavirus screen: At this iw time, the client does not indicate any symptoms associated with coronavirus-19. Ebola Screen: Patient negative for fever greater than or equal to 101.5 degrees Fahrenheit, and additional compatible Ebola Virus Disease symptoms Patient denies exposure to infectious person. Patient denies travel to an Ebola-affected area in the 21 days before illness onset. No symptoms or risks identified at this time. Risk Assessment: Do you want to hurt yourself or someone else? Patient reports no desire to harm self or others. Onset of symptoms was August 06, 2022. 10:05 Method Of Arrival: Ambulatory iw 10:05 Acuity: ZHEN 3 iw 10:10 Initial Sepsis Screen: Does the patient meet any 2 criteria? No. Patient's initial iw sepsis screen is negative. Does the patient have a suspected source of infection? No. Patient's initial sepsis screen is negative. Triage Assessment: 10:15 General: Appears uncomfortable, Behavior is anxious. iw Historical: - Allergies: 10:05 hydrochlorothiazide; iw - PMHx: 10:05 Anxiety; Chronic Abdominal Pain; Hypertensive disorder; Hypothyroidism; low NA; NIDDM; iw - PSHx: 10:05 Thyroidectomy; iw - Immunization history:: Adult Immunizations unknown. - Social history:: Smoking status: unknown. Screenin:28 [facility] ED Fall Risk Assessment (Adult) History of falling in the last 3 months, iw including since admission. Abuse screen: Denies threats or abuse. Denies injuries from another. Nutritional screening: No deficits noted. Tuberculosis screening: No symptoms or risk factors identified. Assessment: 10:15 General: Appears uncomfortable, Behavior is anxious. Pain: Complains of pain in iw abdomen. Neuro: Level of Consciousness is awake, alert, obeys commands, Oriented to person, place, time, situation. Respiratory: Respiratory effort is even, unlabored, Respiratory pattern is regular. GI: Bowel sounds. GI: Abd is soft X 4 quads. Derm: Skin is healthy with good turgor. Vital Signs: 10:05 BP 205 / 98; Pulse 84; Resp 16; Temp 98.2; Pulse Ox 98% on R/A; Pain 9/10; iw 10:05 Pain Scale: Adult iw ED Course: 09:15 Patient arrived in ED. am2 09:17 Emma Hussein [facility]C [facility]. kb 09:17 Villa Byrd MD is Attending Physician. kb 10:05 Therese Logan, RN is Primary Nurse. iw 10:05 Triage completed. iw 10:05 Arm band placed on. iw 10:14 US Abdomen Limited In Process Unspecified. EDMS 10:15 Patient has correct armband on for positive identification. iw 10:39 CBC with Diff Sent. iw 10:39 CMP Sent. iw 10:39 Lipase Sent. iw 12:28 No provider procedures requiring assistance completed. IV discontinued, intact, iw bleeding controlled, No redness/swelling at site. Pressure dressing applied. Administered Medications: 11:04 Drug: TORadol - Ketorolac IVP 15 mg Route: IVP; Site: left antecubital; iw 11:40 Follow up: Response: No adverse reaction; Pain is decreased iw 11:04 Drug: Ondansetron IVP 4 mg Route: IVP; Site: left antecubital; iw 11:30 Follow up: Response: No adverse reaction iw Medication: 10:15 VIS not applicable for this client. iw Outcome: 11:44 Discharge ordered by . kb 12:29 Discharged to home ambulatory. iw 12:29 Condition: improved 12:29 Discharge instructions given to patient. 12:30 Patient left the ED. bd Signatures: Dispatcher [employer] EDMS Emma Hussein FNP-C FNP-Ckb Dirrim, Barbara bd Therese Logan, RN RN iw Elisa Gregory am2
--- NOTE | 2022-08-06 11:44 | EDPHYS ---
Physician Documentation [facility] Name: Jaimie Amanda Age: 61 yrs Sex: Female : 1960 Arrival Date: 08/06/2022 Time: 09:14 Bed External Waiting Private MD: ED Physician Villa Byrd HPI: 08/06 11:46 This 61 yrs old Female presents to ER via Ambulatory with complaints of Abdominal Pain. kb 11:46 The patient presents with abdominal pain in the upper abdomen. Onset: The kb symptoms/episode began/occurred chronic. The symptoms do not radiate. Associated signs and symptoms: Pertinent positives: nausea and vomiting, Pertinent negatives: diarrhea, fever. The symptoms are described as constant. Modifying factors: The symptoms are alleviated by nothing, the symptoms are aggravated by nothing. Severity of pain: At its worst the pain was moderate in the emergency department the pain is unchanged. The patient has experienced similar episodes in the past, chronically. The patient has not recently seen a physician. 11:47 Pt reports upper abd pain that is exactly the same as previous episodes. Reports nausea kb with one episode of vomiting last night. Denies diarrrhea or vomiting this mroning. Historical: - Allergies: 10:05 hydrochlorothiazide; iw - PMHx: 10:05 Anxiety; Chronic Abdominal Pain; Hypertensive disorder; Hypothyroidism; low NA; NIDDM; iw - PSHx: 10:05 Thyroidectomy; iw - Immunization history:: Adult Immunizations unknown. - Social history:: Smoking status: unknown. ROS: 11:46 Constitutional: Negative for fever, chills, and weight loss. kb 11:46 Abdomen/GI: Positive for abdominal pain, nausea and vomiting, Negative for diarrhea. 11:46 All other systems are negative. Exam: 11:46 Constitutional: This is a well developed, well nourished patient who is awake, alert, kb and in no acute distress. Head/Face: Normocephalic, atraumatic. ENT: Moist Mucous membranes Cardiovascular: Regular rate and rhythm with a normal S1 and S2. No gallops, murmurs, or rubs. No pulse deficits. Respiratory: Respirations even and unlabored. No increased work of breathing. Talking in full sentences Abdomen/GI: Soft, non-tender. No distention Skin: Warm, dry with normal turgor. Normal color. MS/ Extremity: Pulses equal, no cyanosis. Neurovascular intact. Full, normal range of motion. Neuro: Awake and alert, GCS 15, oriented to person, place, time, and situation. Moves all extremities. Normal gait. Vital Signs: 10:05 BP 205 / 98; Pulse 84; Resp 16; Temp 98.2; Pulse Ox 98% on R/A; Pain 9/10; iw 10:05 Pain Scale: Adult iw MDM: 09:17 Patient medically screened. kb 11:44 Differential diagnosis: chronic abd pain, cholelithiasis, cholecystitis, pancreatitis, kb ulcer. Data reviewed: vital signs, nurses notes. Consideration of Admission/Observation Escalation of care including admission/observation considered. admission considered, but pt wanted to go home. Pt walked out of ED before I was able to discuss worsening hyponatremia and need for admission. Counseling: I had a detailed discussion with the patient and/or guardian regarding: the historical points, exam findings, and any diagnostic results supporting the discharge/admit diagnosis, lab results, radiology results, the need for further work-up and treatment in the hospital. 08/06 09:32 Order name: CBC with Diff; Complete Time: 11:06 kb 08/06 09:32 Order name: CMP; Complete Time: 11:17 kb 08/06 09:32 Order name: Lipase; Complete Time: 11:17 kb 08/06 09:33 Order name: US Abdomen Limited; Complete Time: 10:34 kb 08/06 09:32 Order name: IV Saline Lock; Complete Time: 10:39 kb 08/06 09:32 Order name: Labs collected and sent; Complete Time: 10:39 kb Administered Medications: 11:04 Drug: TORadol - Ketorolac IVP 15 mg Route: IVP; Site: left antecubital; iw 11:40 Follow up: Response: No adverse reaction; Pain is decreased iw 11:04 Drug: Ondansetron IVP 4 mg Route: IVP; Site: left antecubital; iw 11:30 Follow up: Response: No adverse reaction iw Disposition: 16:29 Co-signature as Attending Physician, Villa Byrd MD I reviewed the patient's care rn provided by the Advanced Practice Provider and agree with the diagnosis and treatment plan. Disposition Summary: 08/06/22 11:44 Discharge Ordered Location: Home kb Condition: Stable kb Diagnosis - Abdominal pain, Generalized - chronic kb - Hyponatremia kb Followup: kb - With: Emergency Department - When: As needed - Reason: Worsening of condition Followup: kb - With: Private Physician - When: 2 - 3 days - Reason: Recheck today's complaints, Continuance of care, Re-evaluation by your physician Discharge Instructions: - Discharge Summary Sheet kb - Abdominal Pain, Adult, [id number] kb - Hyponatremia, [id number] kb Forms: - Medication Reconciliation Form kb - Thank You Letter kb - Antibiotic Education kb - Prescription Opioid Use kb Signatures: Dispatcher [employer] EDMS Emma Hussein, EDUARDO-C ROTARY KILN OPERATOR-Therese Guthrie, RN RN iw Villa Byrd MD MD rn
[2022-08-06 12:59] VITALS: BP 205/98; TEMP 98.2; O2SAT 98
== END 2022-08-06 12:30 | disposition home or self-care (01) ==
LOC: ER 09:14
DX: E87.1 Hypo-osmolality and hyponatremia (principal); R11.2 Nausea with vomiting, unspecified; I10 Essential (primary) hypertension; Z88.8 Allergy status to other drugs, medicaments and biological substances
CPT/HCPCS: 85025; 36415; 83690; 80053; 76705; 96375; 96374; 99284; J2405

== ENCOUNTER 2022-08-08 10:58 | Emergency (ER) | payer OTHER ==
--- OUTSIDE RECORDS SUMMARY | 2022-08-08 11:10 | XMS REPORT | Continuity of Care Document ---
:1960 Author Organization [facility] t Address [address] [place] [address] [place] [id number] Care Team Providers Name Role Phone [facility] Primary Care Physician MATT SIMPSON Attending Clinician Unavailable MATT SIMPSON Attending Clinician Unavailable Doctor Unassigned, [place] Attending Clinician Unavailable WALLY KRISHNAMURTHY Attending Clinician Unavailable Natacha Brewster Attending Clinician Payers Payer Name Policy Type Policy Number Effective Date Expiration Date Sarina castelan [facility] [id number] 2017 00:00:00 PLUS Problems This patient has [...] 1960 [facility] 00:00:00 00:00:00 [facility] Smoking Status Start Date Stop Date Source Smokes tobacco daily 2016-05-01 00:00:00 [facility] Medications Ordered Filled Start Stop [...] capsule 00:00: 00 OXcarbazepi 2017-0 Yes 600mg Q.[id number] Take [address] [facility] [address] ne 2-23 [id number] mg by Yasir (TRILEPTAL) 10:23: 3D mouth 3 Med ical 600 [facility] 59 (three) Center tablet times daily. PARoxetine 2017-0 Yes 40mg QD Take [address] (PAXIL) 40 2-23 [facility] 10:23: nightly. [address] OXcarbazepi 2017-0 Yes 600mg Q.[id number] Take [address] ne 2-23 [id number] [facility] by [facility] (TR[facility]) 10:23: 3D mouth 3 Med ical 600 [facility] 59 (three) Center tablet times daily. PARoxetine 2017-0 Yes 40mg QD Take [address] (PAXIL) 40 2-23 [facility] 10:23: nightly. [address] OXcarbazepi 2017-0 Yes 600mg Q.[id number] Take [address] ne 2-23 [id number] [facility] by [facility] (TRILEPTAL) 10:23: 3D mouth 3 Med ical 600 [facility] 59 (three) Center tablet times daily. PARoxetine 2017-0 Yes 40mg QD Take [address] (PAXIL) 40 2-23 [facility] 10:23: nightly. [address] OXcarbazepi 2017-0 Yes 600mg Q.[id number] Take [address] ne 2-23 [id number] [facility] by [facility] (TRILEPTAL) 10:23: 3D mouth 3 Med ical 600 [facility] 59 (three) Center tablet times daily. PARoxetine 2017-0 Yes 40mg QD Take [address] (PAXIL) 40 2-23 [facility] 10:23: nightly. [address] OXcarbazepi 2017-0 Yes 600mg Q.[id number] Take [address] [address] ne 2-23 [id number] [facility] by [facility] (TRILEPTAL) 10:23: 3D mouth 3 Med ical 600 MG 59 (three) Center tablet times daily. PARoxetine 2017-0 Yes 40mg QD Take [address] (PAXIL) 40 2-23 [facility] 10:23: nightly. [address] OXcarbazepi 2017-0 Yes 600mg Q.[id number] Take [address] ne 2-23 [id number] mg by [facility] (TRILEPTAL) 10:23: 3D mouth 3 Med ical 600 MG 59 (three) Center tablet times daily. OXcarbazepi 2017-0 Yes 600mg Q.[id number] Take [address] ne 2-23 [id number] mg by [facility] (TRILEPTAL) 10:23: 3D mouth 3 Med ical 600 MG 59 (three) Center tablet times daily. PARoxetine 2017-0 Yes 40mg QD Take [address] (PAXIL) 40 2-23 [facility] 10:23: nightly. [address] OXcarbazepi 2017-0 Yes 600mg Q.[id number] Take [address] ne 2-23 [id number] mg by [facility] (TRILEPTAL) 10:23: 3D mouth 3 Med ical 600 MG 59 (three) Center tablet times daily. PARoxetine 2017-0 Yes 40mg QD Take [address] (PAXIL) 40 2-23 [facility] 10:23: nightly. [address] OXcarbazepi 2017-0 Yes 600mg Q.[id number] Take [address] ne 2-23 [id number] mg by [facility] (TRILEPTAL) 10:23: 3D mouth 3 Med ical 600 MG 59 (three) Center tablet times daily. PARoxetine 2017-0 Yes 40mg QD Take [address] (PAXIL) 40 2-23 [facility] 10:23: nightly. [address] PARoxetine 2017-0 Yes 40mg QD Take [address] (PAXIL) 40 2-23 [facility] tablet 10:23: nightly. [address] OXcarbazepi 2017-0 Yes 600mg Q.[id number] Take [address] ne 2-23 [id number] [facility] by [facility] (TRILEPTAL) 10:23: 3D mouth 3 Med ical 600 MG 59 (three) Center tablet times daily. PARoxetine 2017-0 Yes 40mg QD Take [address] (PAXIL) 40 2-23 [facility] 10:23: nightly. [address] OXcarbazepi 2017-0 Yes 600mg Q.[id number] Take [address] ne 2-23 [id number] mg by [facility] (TRILEPTAL) 10:23: 3D mouth 3 Med ical 600 MG 59 (three) Center tablet times daily. PARoxetine 2017-0 Yes 40mg QD Take [address] (PAXIL) 40 2-23 [facility] 10:23: nightly. [address] 2017-0 Yes 600mg Q.[id number] Take [address] ne 2-23 [id number] mg by [facility] (TRILEPTAL) 10:23: 3D mouth 3 Med ical 600 MG 59 (three) Center tablet times daily. PARoxetine 2017-0 Yes 40mg QD Take [address] (PAXIL) 40 2-23 [facility] 10:23: nightly. [address] 2017-0 Yes 600mg Q.[id number] Take [address] ne 2-23 [id number] mg by [facility] (TRILEPTAL) 10:23: 3D mouth 3 Med ical 600 MG 59 (three) Center tablet times daily. PARoxetine 2017-0 Yes 40mg QD Take [address] (PAXIL) 40 2-23 [facility] 10:23: nightly. [address] 2017-0 Yes 600mg Q.[id number] Take [address] ne 2-23 [id number] mg by [facility] (TRILEPTAL) 10:23: 3D mouth 3 Med ical 600 MG 59 (three) Center tablet times daily. PARoxetine 2017-0 Yes 40mg QD Take [address] (PAXIL) 40 2-23 [facility] 10:23: nightly. [address] 2017-0 Yes 600mg Q.[id number] Take [address] ne 2-23 [id number] mg by [facility] (TRILEPTAL) 10:23: 3D mouth 3 Med ical 600 MG 59 (three) Center tablet times daily. PARoxetine 2017-0 Yes 40mg QD Take [address] (PAXIL) 40 2-23 [facility] 10:23: nightly. [address] OXcarbazepi 2017-0 Yes 600mg Q.[id number] Take [address] ne 2-23 [id number] mg by [facility] (TRILEPTAL) 10:23: 3D mouth 3 Med ical 600 MG 59 (three) Center tablet times daily. PARoxetine 2017-0 Yes 40mg QD Take [address] (PAXIL) 40 2-23 [facility] 10:23: nightly. [address] OXcarbazepi 2017-0 Yes 600mg Q.[id number] Take [address] ne 2-23 [id number] mg by [facility] (TRILEPTAL) 10:23: 3D mouth 3 Med ical 600 MG 59 (three) Center tablet times daily. OXcarbazepi 2017-0 Yes 600mg Q.[id number] Take [address] ne 2-23 [id number] mg by [facility] (TRILEPTAL) 10:23: 3D mouth 3 Med ical 600 MG 59 (three) Center tablet times daily. PARoxetine 2017-0 Yes 40mg QD Take [address] (PAXIL) 40 2-23 [facility] 10:23: nightly. [address] OXcarbazepi 2017-0 Yes 600mg Q.[id number] Take [address] ne 2-23 [id number] mg by [facility] (TRILEPTAL) 10:23: 3D mouth 3 Med ical 600 MG 59 (three) Center tablet times daily. PARoxetine 2017-0 Yes 40mg QD Take [address] (PAXIL) 40 2-23 [facility] 10:23: nightly. [address] OXcarbazepi 2017-0 Yes 600mg Q.[id number] Take [address] ne 2-23 [id number] mg by [facility] (TRILEPTAL) 10:23: 3D mouth 3 Med ical 600 MG 59 (three) Center tablet times daily. PARoxetine 2017-0 Yes 40mg QD Take [address] (PAXIL) 40 2-23 [facility] 10:23: nightly. [address] PARoxetine 2017-0 Yes 40mg QD Take [address] (PAXIL) 40 2-23 [facility] 10:23: nightly. [address] OXcarbazepi 2017-0 Yes 600mg Q.[id number] Take [address] ne 2-23 [id number] mg by [facility] (TRILEPTAL) 10:23: 3D mouth 3 Med ical 600 MG 59 (three) Center tablet times daily. PARoxetine 2017-0 Yes 40mg QD Take [address] (PAXIL) 40 2-23 [facility] 10:23: nightly. [address] OXcarbazepi 2017-0 Yes 600mg Q.[id number] Take [address] ne 2-23 [id number] mg by [facility] (TRILEPTAL) 10:23: 3D mouth 3 Med ical 600 MG 59 (three) Center tablet times daily. PARoxetine 2017-0 Yes 40mg QD Take [address] (PAXIL) 40 2-23 [facility] tablet 10:23: nightly. [address] OXcarbazepi 2017-0 Yes 600mg Q.[id number] Take [address] ne 2-23 [id number] mg by [facility] (TRILEPTAL) 10:23: 3D mouth 3 Med ical 600 MG 59 (three) Center tablet times daily. PARoxetine 2017-0 Yes 40mg QD Take [address] (PAXIL) 40 2-23 [facility] 10:23: nightly. [address] 2017-0 Yes 600mg Q.[id number] Take [address] ne 2-23 [id number] mg by [facility] (TRILEPTAL) 10:23: 3D mouth 3 Med ical 600 MG 59 (three) Center tablet times daily. PARoxetine 2017-0 Yes 40mg QD Take [address] (PAXIL) 40 2-23 by [facility] 10:23: nightly. [address] OXcarbazepi 2017-0 Yes 600mg Q.[id number] Take [address] ne 2-23 [id number] mg by [facility] (TRILEPTAL) 10:23: 3D mouth 3 Med ical 600 MG 59 (three) Center tablet times daily. PARoxetine 2017-0 Yes 40mg QD Take [address] (PAXIL) 40 2-23 by [facility] tablet 10:23: nightly. [address] OXcarbazepi 2017-0 Yes 600mg Q.[id number] Take [address] ne 2-23 [id number] mg by [facility] (TRILEPTAL) 10:23: 3D mouth 3 Med ical 600 MG 59 (three) Center tablet times daily. PARoxetine 2017-0 Yes 40mg QD Take [address] (PAXIL) 40 2-23 by [facility] tablet 10:23: nightly. [address] OXcarbazepi 2017-0 Yes 600mg Q.[id number] Take [address] [address] ne 2-23 [id number] mg by [facility] (TRILEPTAL) 10:23: 3D mouth 3 Med ical 600 MG 59 (three) Center tablet times daily. PARoxetine 2017-0 Yes 40mg QD Take [address] (PAXIL) 40 2-23 by [facility] tablet 10:23: nightly. [address] OXcarbazepi 2017-0 Yes 600mg Q.[id number] Take [address] ne 2-23 [id number] mg by [facility] (TRILEPTAL) 10:23: 3D mouth 3 Med ical 600 MG 59 (three) Center tablet times daily. OXcarbazepi 2017-0 Yes 600mg Q.[id number] Take [address] ne 2-23 [id number] mg by [facility] (TRILEPTAL) 10:23: 3D mouth 3 Med ical 600 MG 59 (three) Center tablet times daily. PARoxetine 2017-0 Yes 40mg QD Take [address] (PAXIL) 40 2-23 by mouth [facility] tablet 10:23: nightly. [address] OXcarbazepi 2017-0 Yes 600mg Q.[id number] Take [address] ne 2-23 [id number] mg by [facility] (TRILEPTAL) 10:23: 3D mouth 3 Med ical 600 MG 59 (three) Center tablet times daily. PARoxetine 2017-0 Yes 40mg QD Take [address] (PAXIL) 40 2-23 by mouth [facility] tablet 10:23: nightly. [facility] [address] OXcarbazepi 2017-0 Yes 600mg Q.[id number] Take [address] ne 2-23 [id number] mg by [facility] (TRILEPTAL) 10:23: 3D mouth 3 Med ical 600 MG 59 (three) Center tablet times daily. PARoxetine 2017-0 Yes 40mg QD Take [address] (PAXIL) 40 2-23 by mouth [facility] tablet 10:23: nightly. [facility] [address] OXcarbazepi 2017-0 Yes 600mg Q.[id number] Take [address] ne 2-23 [id number] mg by [facility] (TRILEPTAL) 10:23: 3D mouth 3 Med ical 600 MG 59 (three) Center tablet times daily. PARoxetine 2017-0 Yes 40mg QD Take [address] (PAXIL) 40 2-23 by mouth [facility] tablet 10:23: nightly. [facility] [address] PARoxetine 2017-0 Yes 40mg QD Take [address] (PAXIL) 40 2-23 by mouth [facility] tablet 10:23: nightly. [facility] [address] OXcarbazepi 2017-0 Yes 600mg Q.[id number] Take [address] ne 2-23 [id number] mg by [facility] (TRILEPTAL) 10:23: 3D mouth 3 Med ical 600 MG 59 (three) Center tablet times daily. PARoxetine 2017-0 Yes 40mg QD Take [address] (PAXIL) 40 2-23 by mouth [facility] tablet 10:23: nightly. [address] OXcarbazepi 2017-0 Yes 600mg Q.[id number] Take [address] ne 2-23 [id number] mg by [facility] (TRILEPTAL) 10:23: 3D mouth 3 Med ical 600 MG 59 (three) Center tablet times daily. PARoxetine 2017-0 Yes 40mg QD Take [address] (PAXIL) 40 2-23 by mouth [facility] tablet 10:23: nightly. [facility] [address] OXcarbazepi 2017-0 Yes 600mg Q.[id number] Take [address] ne 2-23 [id number] mg by [facility] (TRILEPTAL) 10:23: 3D mouth 3 Med ical 600 MG 59 (three) Center tablet times daily. PARoxetine 2017-0 Yes 40mg QD Take [address] (PAXIL) 40 2-23 by mouth [facility] tablet 10:23: nightly. [facility] [address] OXcarbazepi 2017-0 Yes 600mg Q.[id number] Take [address] ne 2-23 [id number] mg by [facility] (TRILEPTAL) 10:23: 3D mouth 3 Med ical 600 MG 59 (three) Center tablet times daily. PARoxetine 2017-0 Yes 40mg QD Take [address] (PAXIL) 40 2-23 by mouth [facility] tablet 10:23: nightly. [facility] [address] OXcarbazepi 2017-0 Yes 600mg Q.[id number] Take [address] ne 2-23 [id number] mg by [facility] (TRILEPTAL) 10:23: 3D mouth 3 Med ical 600 MG 59 (three) Center tablet times daily. PARoxetine 2017-0 Yes 40mg QD Take [address] (PAXIL) 40 2-23 by mouth [facility] tablet 10:23: nightly. [facility] [address] OXcarbazepi 2017-0 Yes 600mg Q.[id number] Take [address] ne 2-23 [id number] mg by [facility] (TRILEPTAL) 10:23: 3D mouth 3 Med ical 600 MG 59 (three) Center tablet times daily. PARoxetine 2017-0 Yes 40mg QD Take [address] (PAXIL) 40 2-23 by mouth [facility] tablet 10:23: nightly. [facility] [address] OXcarbazepi 2017-0 Yes 600mg Q.[id number] Take [address] ne 2-23 [id number] mg by [facility] (TRILEPTAL) 10:23: 3D mouth 3 Med ical 600 MG 59 (three) Center tablet times daily. PARoxetine 2017-0 Yes 40mg QD Take [address] (PAXIL) 40 2-23 by mouth [facility] tablet 10:23: nightly. [facility] [address] OXcarbazepi 2017-0 Yes 600mg Q.[id number] Take [address] ne 2-23 [id number] mg by [facility] (TRILEPTAL) 10:23: 3D mouth 3 Med ical 600 MG 59 (three) Center tablet times daily. OXcarbazepi 2017-0 Yes 600mg Q.[id number] Take [address] ne 2-23 [id number] mg by [facility] (TRILEPTAL) 10:23: 3D mouth 3 Med ical 600 MG 59 (three) Center tablet times daily. PARoxetine 2017-0 Yes 40mg QD Take [address] (PAXIL) 40 2-23 by mouth [facility] tablet 10:23: nightly. [address] OXcarbazepi 2017-0 Yes 600mg Q.[id number] Take [address] ne 2-23 [id number] mg by [facility] (TRILEPTAL) 10:23: 3D mouth 3 Med ical 600 MG 59 (three) Center tablet times daily. PARoxetine 2017-0 Yes 40mg QD Take [address] (PAXIL) 40 2-23 by mouth [facility] tablet 10:23: nightly. [address] OXcarbazepi 2017-0 Yes 600mg Q.[id number] Take [address] ne 2-23 [id number] mg by [facility] (TRILEPTAL) 10:23: 3D mouth 3 Med ical 600 MG 59 (three) Center tablet times daily. PARoxetine 2017-0 Yes 40mg QD Take [address] (PAXIL) 40 2-23 by [facility] tablet 10:23: nightly. [address] PARoxetine 2017-0 Yes 40mg QD Take [address] (PAXIL) 40 2-23 by mouth [facility] tablet 10:23: nightly. [address] OXcarbazepi 2017-0 Yes 600mg Q.[id number] Take [address] ne 2-23 [id number] mg by [facility] (TRILEPTAL) 10:23: 3D mouth 3 Med ical 600 MG 59 (three) Center tablet times daily. PARoxetine 2017-0 Yes 40mg QD Take [address] (PAXIL) 40 2-23 by mouth [facility] tablet 10:23: nightly. [address] OXcarbazepi 2017-0 Yes 600mg Q.[id number] Take [address] ne 2-23 [id number] mg by [facility] (TRILEPTAL) 10:23: 3D mouth 3 Med ical 600 MG 59 (three) Center tablet times daily. PARoxetine 2017-0 Yes 40mg QD Take [address] (PAXIL) 40 2-23 by [facility] tablet 10:23: nightly. [address] LORazepam 2017-0 Yes 1mg Take 1 [...] Goal Plan of Care Note [code = 33916-9] Goal Plan of Care Note [code = 80261-6] Goal Plan of Care Note [code = 28877-4] Goal Plan of Care Note [code = 65437-7] Goal Plan of Care Note [code = 89368-9] Goal Plan of Care Note [code = 41183-2] Goal Plan of Care Note [code = 49356-4] Goal Plan of Care Note [code = 03667-7] Goal Plan of Care Note [code = 31544-4] Goal Plan of Care Note [code = 18045-1] Goal Plan of Care Note [code = 69813-2] Goal Plan of Care Note [code = 10009-4] Goal Plan of Care Note [code = 38393-1] Goal Plan of Care Note [code = 55463-7] Goal Plan of Care Note [code = 72866-6] Goal Plan of Care Note [code = 75476-2] Goal Plan of Care Note [code = 97145-5] Goal Plan of Care Note [code = 08703-7] Goal Plan of Care Note [code = 00846-3] Goal Plan of Care Note [code = 16537-0] Goal Plan of Care Note [code = 07323-7] Goal Plan of Care Note [code = 38493-6] Goal Plan of Care Note [code = 79751-7] Goal Plan of Care Note [code = 54241-9] Goal Plan of Care Note [code = 30389-6] Goal Plan of Care Note [code = 39825-1] Goal Plan of Care Note [code = 61572-4] Goal Plan of Care Note [code = 07217-1] Goal Plan of Care Note [code = 48761-0] Goal Plan of Care Note [code = 63629-8] Goal Plan of Care Note [code = 35444-4] Goal Plan of Care Note [code = 92187-8] Goal Plan of Care Note [code = 49507-2] Goal Plan of Care Note [code = 05203-0] Goal Plan of Care Note [code = 78947-3] Goal Plan of Care Note [code = 35688-2] Goal Plan of Care Note [code = 44762-8] Goal Plan of Care Note [code = 89130-5] Goal Plan of Care Note [code = 64309-0] Goal Plan of Care Note [code = 64826-2] Goal Plan of Care Note [code = 49364-1] Goal Plan of Care Note [code = 48467-5] Goal Plan of Care Note [code = 53338-3] Goal Plan of Care Note [code = 96082-4] Goal Plan of Care Note [code = 26877-2] Goal Plan of Care Note [code = 45456-0] Goal Plan of Care Note [code = 42034-2] Goal Plan of Care Note [code = 78436-5] Goal Plan of Care Note [code = 69660-2] Goal Plan of Care Note [code = 11163-1] Goal Plan of Care Note [code = 87593-9] Goal Plan of Care Note [code = 18518-7] Goal Plan of Care Note [code = 58626-6] Goal Plan of Care Note [code = 41899-0] Goal Plan of Care Note [code = 88002-2] Goal Plan of Care Note [code = 71427-5] Goal Plan of Care Note [code = 00066-5] Goal Plan of Care Note [code = 18983-8] Goal Plan of Care Note [code = 62547-6] Goal Plan of Care Note [code = 25722-7] Goal Plan of Care Note [code = 61360-3] Goal Plan of Care Note [code = 65251-9] Goal Plan of Care Note [code = 87277-5] Goal Plan of Care Note [code = 47580-0] Goal Plan of Care Note [code = 61422-2] Goal Plan of Care Note [code = 34622-3] Goal Plan of Care Note [code = 16223-9] Goal Plan of Care Note [code = 47979-1] Goal Plan of Care Note [code = 20671-0] Goal Plan of Care Note [code = 06550-8] Goal Plan of Care Note [code = 70066-4] Goal Plan of Care Note [code = 84786-9] Goal Plan of Care Note [code = 68517-2] Goal Plan of Care Note [code = 38177-5] Goal Plan of Care Note [code = 59441-3] Goal Plan of Care Note [code = 46667-4] Goal Plan of Care Note [code = 15252-5] Goal Plan of Care Note [code = 45689-3] Goal Plan of Care Note [code = 26160-6] Goal Plan of Care Note [code = 94309-4] Goal Plan of Care Note [code = 77508-9] Goal Plan of Care Note [code = 07036-0] Goal Plan of Care Note [code = 00470-6] Goal Plan of Care Note [code = 16033-4] Goal Plan of Care Note [code = 17603-0] Goal Plan of Care Note [code = 32365-6] Goal Plan of Care Note [code = 40975-5] Goal Plan of Care Note [code = 21750-8] Goal Plan of Care Note [code = 66064-1] Goal Plan of Care Note [code = 79744-1] Goal Plan of Care Note [code = 07852-4] Goal Plan of Care Note [code = 83476-1] Goal Plan of Care Note [code = 16741-8] Goal Plan of Care Note [code = 81922-0] Goal Plan of Care Note [code = 33900-3] Goal Plan of Care Note [code = 32596-7] Goal Plan of Care Note [code = 67499-0] Goal Plan of Care Note [code = 37150-9] Goal Plan of Care Note [code = 95710-0] Goal Plan of Care Note [code = 16013-7] Goal Plan of Care Note [code = 36660-6] Goal Plan of Care Note [code = 99696-5] Goal Plan of Care Note [code = 45097-0] Goal Plan of Care Note [code = 76525-4] Goal Plan of Care Note [code = 85404-4] Goal Plan of Care Note [code = 02388-8] Goal Plan of Care Note [code = 88024-2] Goal Plan of Care Note [code = 75223-9] Goal Plan of Care Note [code = 20992-9] Goal Plan of Care Note [code = 01068-2] Goal Plan of Care Note [code = 85137-3] Goal Plan of Care Note [code = 86049-9] Goal Plan of Care Note [code = 95633-2] Goal Plan of Care Note [code = 25079-2] Goal Plan of Care Note [code = 40956-4] Goal Plan of Care Note [code = 84567-9] Goal Plan of Care Note [code = 07784-1] Goal Plan of Care Note [code = 98855-1] Goal Plan of Care Note [code = 50312-2] Goal Plan of Care Note [code = 61117-5] Goal Plan of Care Note [code = 05113-0] Goal Plan of Care Note [code = 22163-4] Goal Plan of Care Note [code = 55305-8] Goal Plan of Care Note [code = 65371-8] Goal Plan of Care Note [code = 20155-1] Goal Plan of Care Note [code = 24217-4] Goal Plan of Care Note [code = 56186-9] Goal Plan of Care Note [code = 21713-9] Goal Plan of Care Note [code = 15234-6] Goal Plan of Care Note [code = 51710-9] Goal Plan of Care Note [code = 51629-2] Goal Plan of Care Note [code = 88871-2] Goal Plan of Care Note [code = 29414-2] Goal Plan of Care Note [code = 35575-1] Goal Plan of Care Note [code = 79551-5] Goal Plan of Care Note [code = 38594-6] Goal Plan of Care Note [code = 33157-3] Goal Plan of Care Note [code = 49155-4] Goal Plan of Care Note [code = 92574-0] Goal Plan of Care Note [code = 14267-7] Goal Plan of Care Note [code = 23270-7] Goal Plan of Care Note [code = 50464-7] Goal Plan of Care Note [code = 31352-1] Goal Plan of Care Note [code = 39841-3] Goal Plan of Care Note [code = 74925-5] Goal Plan of Care Note [code = 56914-9] Goal Plan of Care Note [code = 61275-9] Goal Plan of Care Note [code = 94251-1] Goal Plan of Care Note [code = 04252-9] Goal Plan of Care Note [code = 22782-5] Goal Plan of Care Note [code = 36629-3] Goal Plan of Care Note [code = 43660-7] Goal Plan of Care Note [code = 43082-0] Goal Plan of Care Note [code = 79257-0] Goal Plan of Care Note [code = 98470-2] Goal Plan of Care Note [code = 63755-0] Goal Plan of Care Note [code = 95088-3] Goal Plan of Care Note [code = 16605-5] Goal Plan of Care Note [code = 27407-4] Goal Plan of Care Note [code = 97147-8] Goal Plan of Care Note [code = 11080-4] Goal Plan of Care Note [code = 94105-3] Goal Plan of Care Note [code = 86809-5] Goal Plan of Care Note [code = 85083-6] Goal Plan of Care Note [code = 40666-2] Goal Plan of Care Note [code = 61463-7] Goal Plan of Care Note [code = 22128-7] Goal Plan of Care Note [code = 63729-8] Goal Plan of Care Note [code = 19365-9] Goal Plan of Care Note [code = 66390-4] Goal Plan of Care Note [code = 24099-0] Goal Plan of Care Note [code = 20396-1] Goal Plan of Care Note [code = 12436-2] Goal Plan of Care Note [code = 68774-6] Goal Plan of Care Note [code = 04537-3] Goal Plan of Care Note [code = 05428-2] Goal Plan of Care Note [code = 04956-1] Goal Plan of Care Note [code = 33925-3] Goal Plan of Care Note [code = 61234-8] Goal Plan of Care Note [code = 47354-4] Goal Plan of Care Note [code = 08739-3] Goal Plan of Care Note [code = 26555-9] Goal Plan of Care Note [code = 11626-6] Goal Plan of Care Note [code = 95113-1] Goal Plan of Care Note [code = 75295-5] Goal Plan of Care Note [code = 65035-9] Goal Plan of Care Note [code = 45208-3] Goal Plan of Care Note [code = 33217-2] Goal Plan of Care Note [code = 17315-6] Goal Plan of Care Note [code = 37306-5] Goal Plan of Care Note [code = 22609-2] Goal Plan of Care Note [code = 47827-0] Goal Plan of Care Note [code = 05415-7] Goal Plan of Care Note [code = 15484-0] Goal Plan of Care Note [code = 32897-3] Goal Plan of Care Note [code = 46870-1] Goal Plan of Care Note [code = 54486-2] Goal Plan of Care Note [code = 78169-4] Goal Plan of Care Note [code = 22918-6] Goal Plan of Care Note [code = 12146-1] Goal Plan of Care Note [code = 03161-1] Goal Plan of Care Note [code = 02764-1] Goal Plan of Care Note [code = 47722-8] Goal Plan of Care Note [code = 03378-3] Goal Plan of Care Note [code = 82071-0] Goal Plan of Care Note [code = 94542-1] Goal Plan of Care Note [code = 19504-2] Goal Plan of Care Note [code = 52337-4] Encounters Start End Encounter Admission Attending Care Care Encounter Source Date/Time Date/Time Type Type Clinicians Facility Department ID 2021-06-01 Outpatient [facility] [id number] [place] 01:36:29 [id number] [facility] 2022-05-24 2022-05-24 Outpatient [facility] [id number] Cristian 10:36:59 10:36:59 [id number] F Jerman 2022-02-11 2022-02-11 Outpatient [facility] [id number] Cristian 09:04:48 09:04:48 1206 F Jerman 2022-02-10 2022-02-10 Outpatient SFA SFA [id number] 022 Cristian 09:29:34 09:29:34 1205 F Jerman 2022-02-10 2022-02-10 Outpatient [id number] 00:00:00 00:00:00 Visit 4089-4cab 089-4cab-9 -7wi8-t1g bf5-s9y187 074cicx11 bafa93 2022-01-10 2022-01-10 Outpatient SFA SFA [id number] 022 Cristian 09:16:14 09:16:14 1104 F Jerman 2022-01-10 2022-01-10 Outpatient [id number]- [id number] accaa6-a 00:00:00 00:00:00 Visit aca9-4c83 ca9-4c83-a -f8qt-ip1 7eb-bc13f3 [id number] f032f9 2021-12-19 2021-12-19 Outpatient SFA SFA [id number] 022 Cristian 16:11:31 16:11:31 1013 F Jerman 2021-12-19 2021-12-19 Outpatient [id number] 00:00:00 00:00:00 Visit i374-094y 770-441f-a -adae-62b amelia-62bace gkhwd39lp fd81af 2021-09-17 2021-09-17 Outpatient [id number]- [id number] 00:00:00 00:00:00 Visit [id number] 2020-08-03 2020-08-03 Outpatient MATT VÁSQUEZ [facility] [id number] Univers 10:00:00 10:00:00 MATT SIMPSON [facility] 2020-07-25 2020-07-25 Orders Doctor FISH [id number] 00:00:00 00:00:00 Only Unassigned, BK 350.1.13.10 [place] [facility] 4.2.7.2.686 [id number] 2019-09-26 2019-09-26 Outpatient Bertin KRISHNAMURTHY [facility] [id number] Univers 16:00:00 16:00:00 [facility] 2018-10-21 2018-10-21 Telephone Gramm, [facility] [id number] 00:00:00 00:00:00 Natacha Nguyen 350.1.13.10 Ade 4.2.7.2.686 Proffarzanehio [id number] [facility] Results Test Description Test Time Test Comments Results Result Comments Source TSH, THIRD GENERATION 2022-05-26 02:57:49 Test Item Value Reference Range Interpretation Comme nts TSH, THIRD GENERATION (test code = 2821) 6.350 UIU/ML 0.400-4.100 H LIPID [id number] 01:09:34 Test Item Value Reference Range Interpretation [...] MOREINFORMATION , SEE CLIENT ANNOUNCE MENT AT [email or web address] [email or web address] [email or web address] LDL/HDL 2.73 RATIO <3.22 [facility] has important (test code = 2238) pathology staff changes effecti ve 05/07/2022. New pathology staff will provide uninter rupted, excellent patie nt care and clinical consultation. S ee URL: [email or web address]. UNLES S OTHERWISE INDIC ATED, ALL TESTING PER FORMED AT [facility] [employer] [facility], [address] [address] [place] [facility] DIRECTOR: Andrew WHITLEY CONNOR NUMBER [id number] CAP ACCREDITATION N O. [id number] HEMOGLOBIN [id number] 03:17:24 Test Item Value Reference Range Interpretation Comments HEMOGLOBIN A1c (test 6.4 % 4.2-5.6 H AMERIC AN DIABETES code = 46639) ASSOCIATION IDELINES FOR HGB A1C: PREDIABETES/INC REASED [...] TESTING OR LABORATORY C ONSULTATION. TSH, THIRD [id number] 05:15:49 Test Item Value Reference Range Interpretation Comments TSH, THIRD GENERATION (test code 2.080 UIU/ML 0.400-4.100 = 2821) HEMOGLOBIN [id number] 03:46:00 Test Item Value Reference Range Interpretation Comments HEMOGLOBIN A1c (test 6.6 % 4.2-5.6 H AMERIC AN DIABETES code = 35830) ASSOCIATION IDELINES FOR HGB A1C: PREDIABETES/INC REASED [...] INDICATED, ALL TESTING PER FORMED ATCLINICAL PATH [facility], [facility]. [address], [place] [address] LABORATORY DIRE CTOR: DIANA RUSS M.D. CLIA NUMBER [id number] [place]. [id number] LIPID [id number] 02:59:52 Test Item Value Reference Range Interpretation [...] MOREINFORMATION , SEE CLIENT ANNOUNCE MENT AT [email or web address] RISK RATIO LDL/HDL 4.02 RATIO <3.22 H (test code = 2238) [id number] 00:00:00 Test Item Value Reference Range Interpretation Comments TSH, THIRD GENERATION (test code 2.080 UIU/ML = 2821) [id number] 00:00:00 Test Item Value Reference Range Interpretation Comments TSH, THIRD GENERATION (test code 2.080 UIU/ML = 2821) [id number] 00:00:00 Test Item Value Reference Range Interpretation Comments TSH, THIRD GENERATION (test code 2.080 UIU/ML = 2821) LIPID [id number] 00:00:00 Test Item Value Reference Range Interpretation Comments CHOLESTEROL (test code = 2210) 292 MG/DL TRIGLYCERIDES (test code = 2232) 184 MG/DL HDL CHOLESTEROL (test code = 2220) 51 MG/DL CALC LDL CHOL (test code = 2237) 205 MG/DL RISK RATIO LDL/HDL (test code = 4.02 RATIO 2238) LIPID [id number] 00:00:00 Test Item Value Reference Range Interpretation Comments CHOLESTEROL (test code = 2210) 292 MG/DL TRIGLYCERIDES (test code = 2232) 184 MG/DL HDL CHOLESTEROL (test code = 2220) 51 MG/DL CALC LDL CHOL (test code = 2237) 205 MG/DL RISK RATIO LDL/HDL (test code = 4.02 RATIO 2238) HEMOGLOBIN [id number] 00:00:00 Test Item Value Reference Range Interpretation Comments HEMOGLOBIN A1c (test code = 38257) 6.6 % HEMOGLOBIN [id number] 00:00:00 Test Item Value Reference Range Interpretation Comments HEMOGLOBIN A1c (test code = 22475) 6.6 % HEMOGLOBIN [id number] 00:00:00 Test Item Value Reference Range Interpretation Comments HEMOGLOBIN A1c (test code = 91916) 6.6 % [id number] 00:00:00 Test Item Value Reference Range Interpretation Comments TSH, THIRD GENERATION (test code 2.080 UIU/ML = 2821) [id number] 00:00:00 Test Item Value Reference Range Interpretation Comments TSH, THIRD GENERATION (test code 2.080 UIU/ML = 2821) [id number] 00:00:00 Test Item Value Reference Range Interpretation Comments TSH, THIRD GENERATION (test code 2.080 UIU/ML = 2821) LIPID [id number] 00:00:00 Test Item Value Reference Range Interpretation Comments CHOLESTEROL (test code = 2210) 292 MG/DL TRIGLYCERIDES (test code = 2232) 184 MG/DL HDL CHOLESTEROL (test code = 2220) 51 MG/DL CALC LDL CHOL (test code = 2237) 205 MG/DL RISK RATIO LDL/HDL (test code = 4.02 RATIO 2238) LIPID [id number] 00:00:00 Test Item Value Reference Range Interpretation Comments CHOLESTEROL (test code = 2210) 292 MG/DL TRIGLYCERIDES (test code = 2232) 184 MG/DL HDL CHOLESTEROL (test code = 2220) 51 MG/DL CALC LDL CHOL (test code = 2237) 205 MG/DL RISK RATIO LDL/HDL (test code = 4.02 RATIO 2238) HEMOGLOBIN [id number] 00:00:00 Test Item Value Reference Range Interpretation Comments HEMOGLOBIN A1c (test code = 25521) 6.6 % HEMOGLOBIN [id number] 00:00:00 Test Item Value Reference Range Interpretation Comments HEMOGLOBIN A1c (test code = 55530) 6.6 % HEMOGLOBIN [id number] 00:00:00 Test Item Value Reference Range Interpretation Comments HEMOGLOBIN A1c (test code = 83713) 6.6 % [id number] 00:00:00 Test Item Value Reference Range Interpretation Comments TSH, THIRD GENERATION (test code 2.080 UIU/ML = 2821) [id number] 00:00:00 Test Item Value Reference Range Interpretation Comments TSH, THIRD GENERATION (test code 2.080 UIU/ML = 2821) LIPID [id number] 00:00:00 Test Item Value Reference Range Interpretation Comments CHOLESTEROL (test code = 2210) 292 MG/DL TRIGLYCERIDES (test code = 2232) 184 MG/DL HDL CHOLESTEROL (test code = 2220) 51 MG/DL CALC LDL CHOL (test code = 2237) 205 MG/DL RISK RATIO LDL/HDL (test code = 4.02 RATIO 2238) HEMOGLOBIN [id number] 00:00:00 Test Item Value Reference Range Interpretation Comments HEMOGLOBIN A1c (test code = 51117) 6.6 % HEMOGLOBIN [id number] 00:00:00 Test Item Value Reference Range Interpretation Comments HEMOGLOBIN A1c (test code = 65542) 6.6 % [id number] 00:00:00 Test Item Value Reference Range Interpretation Comments TSH, THIRD GENERATION (test code 2.080 UIU/ML = 2821) [id number] 00:00:00 Test Item Value Reference Range Interpretation Comments TSH, THIRD GENERATION (test code 2.080 UIU/ML = 2821) [id number] 00:00:00 Test Item Value Reference Range Interpretation Comments TSH, THIRD GENERATION (test code 2.080 UIU/ML = 2821) LIPID [id number] 00:00:00 Test Item Value Reference Range Interpretation Comments CHOLESTEROL (test code = 2210) 292 MG/DL TRIGLYCERIDES (test code = 2232) 184 MG/DL HDL CHOLESTEROL (test code = 2220) 51 MG/DL CALC LDL CHOL (test code = 2237) 205 MG/DL RISK RATIO LDL/HDL (test code = 4.02 RATIO 2238) LIPID [id number] 00:00:00 Test Item Value Reference Range Interpretation Comments CHOLESTEROL (test code = 2210) 292 MG/DL TRIGLYCERIDES (test code = 2232) 184 MG/DL HDL CHOLESTEROL (test code = 2220) 51 MG/DL CALC LDL CHOL (test code = 2237) 205 MG/DL RISK RATIO LDL/HDL (test code = 4.02 RATIO 2238) HEMOGLOBIN [id number] 00:00:00 Test Item Value Reference Range Interpretation Comments HEMOGLOBIN A1c (test code = 74183) 6.6 % HEMOGLOBIN [id number] 00:00:00 Test Item Value Reference Range Interpretation Comments HEMOGLOBIN A1c (test code = 69907) 6.6 % HEMOGLOBIN [id number] 00:00:00 Test Item Value Reference Range Interpretation Comments HEMOGLOBIN A1c (test code = 29805) 6.6 % HEMOGLOBIN [id number] 00:00:00 Test Item Value Reference Range Interpretation Comments HEMOGLOBIN A1c (test code = 28707) 6.8 % HEMOGLOBIN [id number] 00:00:00 Test Item Value Reference Range Interpretation Comments HEMOGLOBIN A1c (test code = 38073) 6.8 % HEMOGLOBIN [id number] 00:00:00 Test Item Value Reference Range Interpretation Comments HEMOGLOBIN A1c (test code = 44732) 6.8 % LIPID [id number] 00:00:00 Test Item Value Reference Range Interpretation Comments CHOLESTEROL (test code = 2210) 303 MG/DL TRIGLYCERIDES (test code = 2232) 191 MG/DL HDL CHOLESTEROL (test code = 2220) 61 MG/DL CALC LDL CHOL (test code = 2237) 205 MG/DL RISK RATIO LDL/HDL (test code = 3.36 RATIO 2238) LIPID [id number] 00:00:00 Test Item Value Reference Range Interpretation Comments CHOLESTEROL (test code = 2210) 303 MG/DL TRIGLYCERIDES (test code = 2232) 191 MG/DL HDL CHOLESTEROL (test code = 2220) 61 MG/DL CALC LDL CHOL (test code = 2237) 205 MG/DL RISK RATIO LDL/HDL (test code = 3.36 RATIO 2238) [id number] 00:00:00 Test Item Value Reference Range Interpretation Comments TSH, THIRD GENERATION (test code 0.769 UIU/ML = 2821) [id number] 00:00:00 Test Item Value Reference Range Interpretation Comments TSH, THIRD GENERATION (test code 0.769 UIU/ML = 2821) [id number] 00:00:00 Test Item Value Reference Range Interpretation Comments TSH, THIRD GENERATION (test code 0.769 UIU/ML = 2821) COMPREHENSIVE METABOLIC [id number] 00:00:00 Test Item Value Reference Range Interpretation Comments GLUCOSE (test code = 2217) 131 MG/DL BUN (test code = 2208) 13 MG/DL CREATININE (test code = 2214) 0.65 MG/DL eGFR AMER. (test code 113 ML/MIN/1.73 = 37013) eGFR NON- AMER. (test 97 ML/MIN/1.73 code = 60610) CALC BUN/CREAT (test code = 20 RATIO [...] code = 2219) 23 U/L COMPREHENSIVE METABOLIC [id number] 00:00:00 Test Item Value Reference Range Interpretation Comments GLUCOSE (test code = 2217) 131 MG/DL BUN (test code = 2208) 13 MG/DL CREATININE (test code = 2214) 0.65 MG/DL eGFR AMER. (test code 113 ML/MIN/1.73 = 53243) eGFR NON- AMER. (test 97 ML/MIN/1.73 code = 41425) CALC BUN/CREAT (test code = 20 RATIO [...] (test code = 2219) 23 U/L HEMOGLOBIN [id number] 00:00:00 Test Item Value Reference Range Interpretation Comments HEMOGLOBIN A1c (test code = 44418) 6.8 % HEMOGLOBIN [id number] 00:00:00 Test Item Value Reference Range Interpretation Comments HEMOGLOBIN A1c (test code = 84876) 6.8 % HEMOGLOBIN [id number] 00:00:00 Test Item Value Reference Range Interpretation Comments HEMOGLOBIN A1c (test code = 21675) 6.8 % LIPID [id number] 00:00:00 Test Item Value Reference Range Interpretation Comments CHOLESTEROL (test code = 2210) 303 MG/DL TRIGLYCERIDES (test code = 2232) 191 MG/DL HDL CHOLESTEROL (test code = 2220) 61 MG/DL CALC LDL CHOL (test code = 2237) 205 MG/DL RISK RATIO LDL/HDL (test code = 3.36 RATIO 2238) LIPID [id number] 00:00:00 Test Item Value Reference Range Interpretation Comments CHOLESTEROL (test code = 2210) 303 MG/DL TRIGLYCERIDES (test code = 2232) 191 MG/DL HDL CHOLESTEROL (test code = 2220) 61 MG/DL CALC LDL CHOL (test code = 2237) 205 MG/DL RISK RATIO LDL/HDL (test code = 3.36 RATIO 2238) [id number] 00:00:00 Test Item Value Reference Range Interpretation Comments TSH, THIRD GENERATION (test code 0.769 UIU/ML = 2821) [id number] 00:00:00 Test Item Value Reference Range Interpretation Comments TSH, THIRD GENERATION (test code 0.769 UIU/ML = 2821) [id number] 00:00:00 Test Item Value Reference Range Interpretation Comments TSH, THIRD GENERATION (test code 0.769 UIU/ML = 2821) COMPREHENSIVE METABOLIC [id number] 00:00:00 Test Item Value Reference Range Interpretation Comments GLUCOSE (test code = 2217) 131 MG/DL BUN (test code = 2208) 13 MG/DL CREATININE (test code = 2214) 0.65 MG/DL eGFR AMER. (test code 113 ML/MIN/1.73 = 95353) eGFR NON- AMER. (test 97 ML/MIN/1.73 code = 63568) CALC BUN/CREAT (test code = 20 RATIO [...] code = 2219) 23 U/L COMPREHENSIVE METABOLIC [id number] 00:00:00 Test Item Value Reference Range Interpretation Comments GLUCOSE (test code = 2217) 131 MG/DL BUN (test code = 2208) 13 MG/DL CREATININE (test code = 2214) 0.65 MG/DL eGFR AMER. (test code 113 ML/MIN/1.73 = 89003) eGFR NON- AMER. (test 97 ML/MIN/1.73 code = 99749) CALC BUN/CREAT (test code = 20 RATIO [...] (test code = 2219) 23 U/L HEMOGLOBIN [id number] 00:00:00 Test Item Value Reference Range Interpretation Comments HEMOGLOBIN A1c (test code = 79781) 6.8 % HEMOGLOBIN [id number] 00:00:00 Test Item Value Reference Range Interpretation Comments HEMOGLOBIN A1c (test code = 36684) 6.8 % LIPID [id number] 00:00:00 Test Item Value Reference Range Interpretation Comments CHOLESTEROL (test code = 2210) 303 MG/DL TRIGLYCERIDES (test code = 2232) 191 MG/DL HDL CHOLESTEROL (test code = 2220) 61 MG/DL CALC LDL CHOL (test code = 2237) 205 MG/DL RISK RATIO LDL/HDL (test code = 3.36 RATIO 2238) [id number] 00:00:00 Test Item Value Reference Range Interpretation Comments TSH, THIRD GENERATION (test code 0.769 UIU/ML = 2821) [id number] 00:00:00 Test Item Value Reference Range Interpretation Comments TSH, THIRD GENERATION (test code 0.769 UIU/ML = 2821) COMPREHENSIVE METABOLIC [id number] 00:00:00 Test Item Value Reference Range Interpretation Comments GLUCOSE (test code = 2217) 131 MG/DL BUN (test code = 2208) 13 MG/DL CREATININE (test code = 2214) 0.65 MG/DL eGFR AMER. (test code 113 ML/MIN/1.73 = 81645) eGFR NON- AMER. (test 97 ML/MIN/1.73 code = 13756) CALC BUN/CREAT (test code = 20 RATIO [...] (test code = 2219) 23 U/L HEMOGLOBIN [id number] 00:00:00 Test Item Value Reference Range Interpretation Comments HEMOGLOBIN A1c (test code = 84968) 6.8 % HEMOGLOBIN [id number] 00:00:00 Test Item Value Reference Range Interpretation Comments HEMOGLOBIN A1c (test code = 10067) 6.8 % HEMOGLOBIN [id number] 00:00:00 Test Item Value Reference Range Interpretation Comments HEMOGLOBIN A1c (test code = 43856) 6.8 % LIPID [id number] 00:00:00 Test Item Value Reference Range Interpretation Comments CHOLESTEROL (test code = 2210) 303 MG/DL TRIGLYCERIDES (test code = 2232) 191 MG/DL HDL CHOLESTEROL (test code = 2220) 61 MG/DL CALC LDL CHOL (test code = 2237) 205 MG/DL RISK RATIO LDL/HDL (test code = 3.36 RATIO 2238) LIPID [id number] 00:00:00 Test Item Value Reference Range Interpretation Comments CHOLESTEROL (test code = 2210) 303 MG/DL TRIGLYCERIDES (test code = 2232) 191 MG/DL HDL CHOLESTEROL (test code = 2220) 61 MG/DL CALC LDL CHOL (test code = 2237) 205 MG/DL RISK RATIO LDL/HDL (test code = 3.36 RATIO 2238) [id number] 00:00:00 Test Item Value Reference Range Interpretation Comments TSH, THIRD GENERATION (test code 0.769 UIU/ML = 2821) [id number] 00:00:00 Test Item Value Reference Range Interpretation Comments TSH, THIRD GENERATION (test code 0.769 UIU/ML = 2821) [id number] 00:00:00 Test Item Value Reference Range Interpretation Comments TSH, THIRD GENERATION (test code 0.769 UIU/ML = 2821) COMPREHENSIVE METABOLIC [id number] 00:00:00 Test Item Value Reference Range Interpretation Comments GLUCOSE (test code = 2217) 131 MG/DL BUN (test code = 2208) 13 MG/DL CREATININE (test code = 2214) 0.65 MG/DL eGFR AMER. (test code 113 ML/MIN/1.73 = 31124) eGFR NON- AMER. (test 97 ML/MIN/1.73 code = 42402) CALC BUN/CREAT (test code = 20 RATIO [...] code = 2219) 23 U/L COMPREHENSIVE METABOLIC [id number] 00:00:00 Test Item Value Reference Range Interpretation Comments GLUCOSE (test code = 2217) 131 MG/DL BUN (test code = 2208) 13 MG/DL CREATININE (test code = 2214) 0.65 MG/DL eGFR AMER. (test code 113 ML/MIN/1.73 = 49906) eGFR NON- AMER. (test 97 ML/MIN/1.73 code = 24917) CALC BUN/CREAT (test code = 20 RATIO [...] (test code = 2219) 23 U/L HEMOGLOBIN [id number] 00:00:00 Test Item Value Reference Range Interpretation Comments HEMOGLOBIN A1c (test code = 70195) 6.6 % HEMOGLOBIN [id number] 00:00:00 Test Item Value Reference Range Interpretation Comments HEMOGLOBIN A1c (test code = 60143) 6.6 % HEMOGLOBIN [id number] 00:00:00 Test Item Value Reference Range Interpretation Comments HEMOGLOBIN A1c (test code = 48537) 6.6 % LIPID [id number] 00:00:00 Test Item Value Reference Range Interpretation Comments CHOLESTEROL (test code = 2210) 261 MG/DL TRIGLYCERIDES (test code = 2232) 159 MG/DL HDL CHOLESTEROL (test code = 2220) 82 MG/DL CALC LDL CHOL (test code = 2237) 150 MG/DL RISK RATIO LDL/HDL (test code = 1.83 RATIO 2238) LIPID [id number] 00:00:00 Test Item Value Reference Range Interpretation Comments CHOLESTEROL (test code = 2210) 261 MG/DL TRIGLYCERIDES (test code = 2232) 159 MG/DL HDL CHOLESTEROL (test code = 2220) 82 MG/DL CALC LDL CHOL (test code = 2237) 150 MG/DL RISK RATIO LDL/HDL (test code = 1.83 RATIO 2238) COMPREHENSIVE METABOLIC [id number] 00:00:00 Test Item Value Reference Range Interpretation Comments GLUCOSE (test code = 2217) 144 MG/DL BUN (test code = 2208) 15 MG/DL CREATININE (test code = 2214) 0.85 MG/DL eGFR AMER. (test code 87 ML/MIN/1.73 = 66306) eGFR NON- AMER. (test 75 ML/MIN/1.73 code = 70917) CALC BUN/CREAT (test code = 18 RATIO [...] code = 2219) 50 U/L COMPREHENSIVE METABOLIC [id number] 00:00:00 Test Item Value Reference Range Interpretation Comments GLUCOSE (test code = 2217) 144 MG/DL BUN (test code = 2208) 15 MG/DL CREATININE (test code = 2214) 0.85 MG/DL eGFR AMER. (test code 87 ML/MIN/1.73 = 15361) eGFR NON- AMER. (test 75 ML/MIN/1.73 code = 77528) CALC BUN/CREAT (test code = 18 RATIO [...] THYROX. BIND. CAPAC. (test code 1.1 = 72655) T4 (THYROXINE) (test code = 4.3 UG/DL 2819) CORRECTED T4 (FTI) (test code = 3.9 UG/DL 2820) TSH, THIRD GENERATION (test 18.900 UIU/ML code = 2821) THYROID II PROFILE (T3U, T4, T7, TSH)[id number] 00:00:00 Test Item Value Reference Range Interpretation Comments T-UPTAKE (test code = 2817) 30.2 % THYROX. BIND. CAPAC. (test code 1.1 = 39134) T4 (THYROXINE) (test code = 4.3 UG/DL 2819) CORRECTED T4 (FTI) (test code = 3.9 UG/DL 2820) TSH, THIRD GENERATION (test 18.900 UIU/ML code = 2821) HEMOGLOBIN [id number] 00:00:00 Test Item Value Reference Range Interpretation Comments HEMOGLOBIN A1c (test code = 41341) 6.6 % HEMOGLOBIN [id number] 00:00:00 Test Item Value Reference Range Interpretation Comments HEMOGLOBIN A1c (test code = 72150) 6.6 % HEMOGLOBIN [id number] 00:00:00 Test Item Value Reference Range Interpretation Comments HEMOGLOBIN A1c (test code = 28523) 6.6 % LIPID [id number] 00:00:00 Test Item Value Reference Range Interpretation Comments CHOLESTEROL (test code = 2210) 261 MG/DL TRIGLYCERIDES (test code = 2232) 159 MG/DL HDL CHOLESTEROL (test code = 2220) 82 MG/DL CALC LDL CHOL (test code = 2237) 150 MG/DL RISK RATIO LDL/HDL (test code = 1.83 RATIO 2238) LIPID [id number] 00:00:00 Test Item Value Reference Range Interpretation Comments CHOLESTEROL (test code = 2210) 261 MG/DL TRIGLYCERIDES (test code = 2232) 159 MG/DL HDL CHOLESTEROL (test code = 2220) 82 MG/DL CALC LDL CHOL (test code = 2237) 150 MG/DL RISK RATIO LDL/HDL (test code = 1.83 RATIO 2238) COMPREHENSIVE METABOLIC [id number] 00:00:00 Test Item Value Reference Range Interpretation Comments GLUCOSE (test code = 2217) 144 MG/DL BUN (test code = 2208) 15 MG/DL CREATININE (test code = 2214) 0.85 MG/DL eGFR AMER. (test code 87 ML/MIN/1.73 = 25869) eGFR NON- AMER. (test 75 ML/MIN/1.73 code = 52663) CALC BUN/CREAT (test code = 18 RATIO [...] code = 2219) 50 U/L COMPREHENSIVE METABOLIC [id number] 00:00:00 Test Item Value Reference Range Interpretation Comments GLUCOSE (test code = 2217) 144 MG/DL BUN (test code = 2208) 15 MG/DL CREATININE (test code = 2214) 0.85 MG/DL eGFR AMER. (test code 87 ML/MIN/1.73 = 56031) eGFR NON- AMER. (test 75 ML/MIN/1.73 code = 71639) CALC BUN/CREAT (test code = 18 RATIO [...] THYROX. BIND. CAPAC. (test code 1.1 = 45001) T4 (THYROXINE) (test code = 4.3 UG/DL 2819) CORRECTED T4 (FTI) (test code = 3.9 UG/DL 2820) TSH, THIRD GENERATION (test 18.900 UIU/ML code = 2821) THYROID II PROFILE (T3U, T4, T7, TSH)2020-05-23 00:00:00 Test Item Value Reference Range Interpretation Comments T-UPTAKE (test code = 2816) 30.2 % THYROX. BIND. CAPAC. (test code 1.1 = 92370) T4 (THYROXINE) (test code = 4.3 UG/DL 2819) CORRECTED T4 (FTI) (test code = 3.9 UG/DL 2820) TSH, THIRD GENERATION (test 18.900 UIU/ML code = 2821) HEMOGLOBIN [id number] 00:00:00 Test Item Value Reference Range Interpretation Comments HEMOGLOBIN A1c (test code = 59562) 6.6 % HEMOGLOBIN [id number] 00:00:00 Test Item Value Reference Range Interpretation Comments HEMOGLOBIN A1c (test code = 79297) 6.6 % LIPID [id number] 00:00:00 Test Item Value Reference Range Interpretation Comments CHOLESTEROL (test code = 2210) 261 MG/DL TRIGLYCERIDES (test code = 2232) 159 MG/DL HDL CHOLESTEROL (test code = 2220) 82 MG/DL CALC LDL CHOL (test code = 2237) 150 MG/DL RISK RATIO LDL/HDL (test code = 1.83 RATIO 2238) COMPREHENSIVE METABOLIC [id number] 00:00:00 Test Item Value Reference Range Interpretation Comments GLUCOSE (test code = 2217) 144 MG/DL BUN (test code = 2208) 15 MG/DL CREATININE (test code = 2214) 0.85 MG/DL eGFR AMER. (test code 87 ML/MIN/1.73 = 03308) eGFR NON- AMER. (test 75 ML/MIN/1.73 code = 57622) CALC BUN/CREAT (test code = 18 RATIO [...] THYROX. BIND. CAPAC. (test code 1.1 = 74084) T4 (THYROXINE) (test code = 4.3 UG/DL 281) CORRECTED T4 (FTI) (test code = 3.9 UG/DL 2820) TSH, THIRD GENERATION (test 18.900 UIU/ML code = 2821) HEMOGLOBIN [id number] 00:00:00 Test Item Value Reference Range Interpretation Comments HEMOGLOBIN A1c (test code = 73927) 6.6 % HEMOGLOBIN [id number] 00:00:00 Test Item Value Reference Range Interpretation Comments HEMOGLOBIN A1c (test code = 95875) 6.6 % HEMOGLOBIN [id number] 00:00:00 Test Item Value Reference Range Interpretation Comments HEMOGLOBIN A1c (test code = 85972) 6.6 % LIPID [id number] 00:00:00 Test Item Value Reference Range Interpretation Comments CHOLESTEROL (test code = 2210) 261 MG/DL TRIGLYCERIDES (test code = 2232) 159 MG/DL HDL CHOLESTEROL (test code = 2220) 82 MG/DL CALC LDL CHOL (test code = 2237) 150 MG/DL RISK RATIO LDL/HDL (test code = 1.83 RATIO 2238) LIPID [id number] 00:00:00 Test Item Value Reference Range Interpretation Comments CHOLESTEROL (test code = 2210) 261 MG/DL TRIGLYCERIDES (test code = 2232) 159 MG/DL HDL CHOLESTEROL (test code = 2220) 82 MG/DL CALC LDL CHOL (test code = 2237) 150 MG/DL RISK RATIO LDL/HDL (test code = 1.83 RATIO 2238) COMPREHENSIVE METABOLIC [id number] 00:00:00 Test Item Value Reference Range Interpretation Comments GLUCOSE (test code = 2217) 144 MG/DL BUN (test code = 2208) 15 MG/DL CREATININE (test code = 2214) 0.85 MG/DL eGFR AMER. (test code 87 ML/MIN/1.73 = 23961) eGFR NON- AMER. (test 75 ML/MIN/1.73 code = 42997) CALC BUN/CREAT (test code = 18 RATIO [...] code = 2219) 50 U/L COMPREHENSIVE METABOLIC [id number] 00:00:00 Test Item Value Reference Range Interpretation Comments GLUCOSE (test code = 2217) 144 MG/DL BUN (test code = 2208) 15 MG/DL CREATININE (test code = 2214) 0.85 MG/DL eGFR AMER. (test code 87 ML/MIN/1.73 = 58043) eGFR NON- AMER. (test 75 ML/MIN/1.73 code = 96804) CALC BUN/CREAT (test code = 18 RATIO [...] THYROX. BIND. CAPAC. (test code 1.1 = 22595) T4 (THYROXINE) (test code = 4.3 UG/DL 2819) CORRECTED T4 (FTI) (test code = 3.9 UG/DL 2820) TSH, THIRD GENERATION (test 18.900 UIU/ML code = 2821) THYROID II PROFILE (T3U, T4, T7, TSH)[id number] 00:00:00 Test Item Value Reference Range Interpretation Comments T-UPTAKE (test code = 281) 30.2 % THYROX. BIND. CAPAC. (test code 1.1 = 28396) T4 (THYROXINE) (test code = 4.3 UG/DL 2819) CORRECTED T4 (FTI) (test code = 3.9 UG/DL 2820) TSH, THIRD GENERATION (test 18.900 UIU/ML code = 2821) HEMOGLOBIN [id number] 00:00:00 Test Item Value Reference Range Interpretation Comments HEMOGLOBIN A1c (test code = 28131) 6.7 % HEMOGLOBIN [id number] 00:00:00 Test Item Value Reference Range Interpretation Comments HEMOGLOBIN A1c (test code = 92116) 6.7 % HEMOGLOBIN [id number] 00:00:00 Test Item Value Reference Range Interpretation Comments HEMOGLOBIN A1c (test code = 29085) 6.7 % LIPID [id number] 00:00:00 Test Item Value Reference Range Interpretation Comments CHOLESTEROL (test code = 2210) 267 MG/DL TRIGLYCERIDES (test code = 2232) 137 MG/DL HDL CHOLESTEROL (test code = 2220) 48 MG/DL CALC LDL CHOL (test code = 2237) 192 MG/DL RISK RATIO LDL/HDL (test code = 4.00 RATIO 2238) LIPID [id number] 00:00:00 Test Item Value Reference Range Interpretation Comments CHOLESTEROL (test code = 2210) 267 MG/DL TRIGLYCERIDES (test code = 2232) 137 MG/DL HDL CHOLESTEROL (test code = 2220) 48 MG/DL CALC LDL CHOL (test code = 2237) 192 MG/DL RISK RATIO LDL/HDL (test code = 4.00 RATIO 2238) COMPREHENSIVE METABOLIC [id number] 00:00:00 Test Item Value Reference Range Interpretation Comments GLUCOSE (test code = 2217) 155 MG/DL BUN (test code = 2208) 14 MG/DL CREATININE (test code = 2214) 0.52 MG/DL eGFR AMER. (test code 122 ML/MIN/1.73 = 25111) eGFR NON- AMER. (test 105 ML/MIN/1.73 code = 32209) CALC BUN/CREAT (test code = 27 RATIO [...] code = 2219) 27 U/L COMPREHENSIVE METABOLIC [id number] 00:00:00 Test Item Value Reference Range Interpretation Comments GLUCOSE (test code = 2217) 155 MG/DL BUN (test code = 2208) 14 MG/DL CREATININE (test code = 2214) 0.52 MG/DL eGFR AMER. (test code 122 ML/MIN/1.73 = 50782) eGFR NON- AMER. (test 105 ML/MIN/1.73 code = 58636) CALC BUN/CREAT (test code = 27 RATIO [...] THYROX. BIND. CAPAC. (test code 1.0 = 92709) T4 (THYROXINE) (test code = 4.7 UG/DL 2819) CORRECTED T4 (FTI) (test code = 4.7 UG/DL 2820) TSH, THIRD GENERATION (test code 0.201 UIU/ML = 2821) THYROID II PROFILE (T3U, T4, T7, TSH)2019 00:00:00 Test Item Value Reference Range Interpretation Comments T-UPTAKE (test code = 2817) 33.1 % THYROX. BIND. CAPAC. (test code 1.0 = 56026) T4 (THYROXINE) (test code = 4.7 UG/DL 2819) CORRECTED T4 (FTI) (test code = 4.7 UG/DL 2820) TSH, THIRD GENERATION (test code 0.201 UIU/ML = 2821) HEMOGLOBIN [id number] 00:00:00 Test Item Value Reference Range Interpretation Comments HEMOGLOBIN A1c (test code = 15283) 6.7 % HEMOGLOBIN [id number] 00:00:00 Test Item Value Reference Range Interpretation Comments HEMOGLOBIN A1c (test code = 05220) 6.7 % HEMOGLOBIN [id number] 00:00:00 Test Item Value Reference Range Interpretation Comments HEMOGLOBIN A1c (test code = 29201) 6.7 % LIPID [id number] 00:00:00 Test Item Value Reference Range Interpretation Comments CHOLESTEROL (test code = 2210) 267 MG/DL TRIGLYCERIDES (test code = 2232) 137 MG/DL HDL CHOLESTEROL (test code = 2220) 48 MG/DL CALC LDL CHOL (test code = 2237) 192 MG/DL RISK RATIO LDL/HDL (test code = 4.00 RATIO 2238) LIPID [id number] 00:00:00 Test Item Value Reference Range Interpretation Comments CHOLESTEROL (test code = 2210) 267 MG/DL TRIGLYCERIDES (test code = 2232) 137 MG/DL HDL CHOLESTEROL (test code = 2220) 48 MG/DL CALC LDL CHOL (test code = 2237) 192 MG/DL RISK RATIO LDL/HDL (test code = 4.00 RATIO 2238) COMPREHENSIVE METABOLIC [id number] 00:00:00 Test Item Value Reference Range Interpretation Comments GLUCOSE (test code = 2217) 155 MG/DL BUN (test code = 2208) 14 MG/DL CREATININE (test code = 2214) 0.52 MG/DL eGFR AMER. (test code 122 ML/MIN/1.73 = 66785) eGFR NON- AMER. (test 105 ML/MIN/1.73 code = 16360) CALC BUN/CREAT (test code = 27 RATIO [...] code = 2219) 27 U/L COMPREHENSIVE METABOLIC [id number] 00:00:00 Test Item Value Reference Range Interpretation Comments GLUCOSE (test code = 2217) 155 MG/DL BUN (test code = 2208) 14 MG/DL CREATININE (test code = 2214) 0.52 MG/DL eGFR AMER. (test code 122 ML/MIN/1.73 = 69746) eGFR NON- AMER. (test 105 ML/MIN/1.73 code = 39215) CALC BUN/CREAT (test code = 27 RATIO [...] THYROX. BIND. CAPAC. (test code 1.0 = 17272) T4 (THYROXINE) (test code = 4.7 UG/DL 2819) CORRECTED T4 (FTI) (test code = 4.7 UG/DL 2820) TSH, THIRD GENERATION (test code 0.201 UIU/ML = 2821) THYROID II PROFILE (T3U, T4, T7, TSH)2019 00:00:00 Test Item Value Reference Range Interpretation Comments T-UPTAKE (test code = 2817) 33.1 % THYROX. BIND. CAPAC. (test code 1.0 = 45807) T4 (THYROXINE) (test code = 4.7 UG/DL 2819) CORRECTED T4 (FTI) (test code = 4.7 UG/DL 2820) TSH, THIRD GENERATION (test code 0.201 UIU/ML = 2821) HEMOGLOBIN [id number] 00:00:00 Test Item Value Reference Range Interpretation Comments HEMOGLOBIN A1c (test code = 17080) 6.7 % HEMOGLOBIN [id number] 00:00:00 Test Item Value Reference Range Interpretation Comments HEMOGLOBIN A1c (test code = 30864) 6.7 % LIPID [id number] 00:00:00 Test Item Value Reference Range Interpretation Comments CHOLESTEROL (test code = 2210) 267 MG/DL TRIGLYCERIDES (test code = 2232) 137 MG/DL HDL CHOLESTEROL (test code = 2220) 48 MG/DL CALC LDL CHOL (test code = 2237) 192 MG/DL RISK RATIO LDL/HDL (test code = 4.00 RATIO 2238) COMPREHENSIVE METABOLIC [id number] 00:00:00 Test Item Value Reference Range Interpretation Comments GLUCOSE (test code = 2217) 155 MG/DL BUN (test code = 2208) 14 MG/DL CREATININE (test code = 2214) 0.52 MG/DL eGFR AMER. (test code 122 ML/MIN/1.73 = 84984) eGFR NON- AMER. (test 105 ML/MIN/1.73 code = 71218) CALC BUN/CREAT (test code = 27 RATIO [...] THYROX. BIND. CAPAC. (test code 1.0 = 15545) T4 (THYROXINE) (test code = 4.7 UG/DL 2819) CORRECTED T4 (FTI) (test code = 4.7 UG/DL 2820) TSH, THIRD GENERATION (test code 0.201 UIU/ML = 2821) HEMOGLOBIN [id number] 00:00:00 Test Item Value Reference Range Interpretation Comments HEMOGLOBIN A1c (test code = 58744) 6.7 % HEMOGLOBIN [id number] 00:00:00 Test Item Value Reference Range Interpretation Comments HEMOGLOBIN A1c (test code = 68678) 6.7 % HEMOGLOBIN [id number] 00:00:00 Test Item Value Reference Range Interpretation Comments HEMOGLOBIN A1c (test code = 32643) 6.7 % LIPID [id number] 00:00:00 Test Item Value Reference Range Interpretation Comments CHOLESTEROL (test code = 2210) 267 MG/DL TRIGLYCERIDES (test code = 2232) 137 MG/DL HDL CHOLESTEROL (test code = 2220) 48 MG/DL CALC LDL CHOL (test code = 2237) 192 MG/DL RISK RATIO LDL/HDL (test code = 4.00 RATIO 2238) LIPID [id number] 00:00:00 Test Item Value Reference Range Interpretation Comments CHOLESTEROL (test code = 2210) 267 MG/DL TRIGLYCERIDES (test code = 2232) 137 MG/DL HDL CHOLESTEROL (test code = 2220) 48 MG/DL CALC LDL CHOL (test code = 2237) 192 MG/DL RISK RATIO LDL/HDL (test code = 4.00 RATIO 2238) COMPREHENSIVE METABOLIC [id number] 00:00:00 Test Item Value Reference Range Interpretation Comments GLUCOSE (test code = 2217) 155 MG/DL BUN (test code = 2208) 14 MG/DL CREATININE (test code = 2214) 0.52 MG/DL eGFR AMER. (test code 122 ML/MIN/1.73 = 04664) eGFR NON- AMER. (test 105 ML/MIN/1.73 code = 01379) CALC BUN/CREAT (test code = 27 RATIO [...] code = 2219) 27 U/L COMPREHENSIVE METABOLIC [id number] 00:00:00 Test Item Value Reference Range Interpretation Comments GLUCOSE (test code = 2217) 155 MG/DL BUN (test code = 2208) 14 MG/DL CREATININE (test code = 2214) 0.52 MG/DL eGFR AMER. (test code 122 ML/MIN/1.73 = 21910) eGFR NON- AMER. (test 105 ML/MIN/1.73 code = 28379) CALC BUN/CREAT (test code = 27 RATIO [...] THYROX. BIND. CAPAC. (test code 1.0 = 54777) T4 (THYROXINE) (test code = 4.7 UG/DL 2819) CORRECTED T4 (FTI) (test code = 4.7 UG/DL 2820) TSH, THIRD GENERATION (test code 0.201 UIU/ML = 2821) THYROID II PROFILE (T3U, T4, T7, TSH)2019 00:00:00 Test Item Value Reference Range Interpretation Comments T-UPTAKE (test code = 7) 33.1 % THYROX. BIND. CAPAC. (test code 1.0 = 31572) T4 (THYROXINE) (test code = 4.7 UG/DL 2819) CORRECTED T4 (FTI) (test code = 4.7 UG/DL 2820) TSH, THIRD GENERATION (test code 0.201 UIU/ML = 2821) SARS-CoV-2 (COVID-19) by RT-PCR (HIGH RISK)2019-09-18 00:00:00 Test Item Value Reference Range Interpretation Comments SARS-CoV-2 INTERPRETATION (test NEGATIVE code = 26731) SOURCE (test code = 23604) NOT SPECIFIED SARS-CoV-2 (COVID-19) by RT-PCR (HIGH RISK)2019-09-18 00:00:00 Test Item Value Reference Range Interpretation Comments SARS-CoV-2 INTERPRETATION (test NEGATIVE code = 06015) SOURCE (test code = 00778) NOT SPECIFIED SARS-CoV-2 (COVID-19) by RT-PCR (HIGH RISK)2019-09-18 00:00:00 Test Item Value Reference Range Interpretation Comments SARS-CoV-2 INTERPRETATION (test NEGATIVE code = 25938) SOURCE (test code = 19889) NOT SPECIFIED SARS-CoV-2 (COVID-19) by RT-PCR (HIGH RISK)2019-09-18 00:00:00 Test Item Value Reference Range Interpretation Comments SARS-CoV-2 INTERPRETATION (test NEGATIVE code = 51786) SOURCE (test code = 10061) NOT SPECIFIED SARS-CoV-2 (COVID-19) by RT-PCR (HIGH RISK)2019-09-18 00:00:00 Test Item Value Reference Range Interpretation Comments SARS-CoV-2 INTERPRETATION (test NEGATIVE code = 44473) SOURCE (test code = 01339) NOT SPECIFIED SARS-CoV-2 (COVID-19) by RT-PCR (HIGH RISK)2019-09-18 00:00:00 Test Item Value Reference Range Interpretation Comments SARS-CoV-2 INTERPRETATION (test NEGATIVE code = 31933) SOURCE (test code = 61604) NOT SPECIFIED SARS-CoV-2 (COVID-19) by RT-PCR (HIGH RISK)2019-09-18 00:00:00 Test Item Value Reference Range Interpretation Comments SARS-CoV-2 INTERPRETATION (test NEGATIVE code = 48782) SOURCE (test code = 25719) NOT SPECIFIED [id number] 00:00:00 Test Item Value Reference Range Interpretation Comments TSH, THIRD GENERATION (test code 2.490 UIU/ML = 2821) [id number] 00:00:00 Test Item Value Reference Range Interpretation Comments TSH, THIRD GENERATION (test code 2.490 UIU/ML = 2821) [id number] 00:00:00 Test Item Value Reference Range Interpretation Comments TSH, THIRD GENERATION (test code 2.490 UIU/ML = 2821) HEMOGLOBIN [id number] 00:00:00 Test Item Value Reference Range Interpretation Comments HEMOGLOBIN A1c (test code = 28190) 6.4 % HEMOGLOBIN [id number] 00:00:00 Test Item Value Reference Range Interpretation Comments HEMOGLOBIN A1c (test code = 80060) 6.4 % HEMOGLOBIN [id number] 00:00:00 Test Item Value Reference Range Interpretation Comments HEMOGLOBIN A1c (test code = 67425) 6.4 % COMPREHENSIVE METABOLIC [id number] 00:00:00 Test Item Value Reference Range Interpretation Comments GLUCOSE (test code = 2217) 206 MG/DL BUN (test code = 2208) 23 MG/DL CREATININE (test code = 2214) 0.67 MG/DL eGFR AMER. (test code 112 ML/MIN/1.73 = 32196) eGFR NON- AMER. (test 97 ML/MIN/1.73 code = 17001) CALC BUN/CREAT (test code = 34 RATIO [...] code = 2219) 25 U/L COMPREHENSIVE METABOLIC [id number] 00:00:00 Test Item Value Reference Range Interpretation Comments GLUCOSE (test code = 2217) 206 MG/DL BUN (test code = 2208) 23 MG/DL CREATININE (test code = 2214) 0.67 MG/DL eGFR AMER. (test code 112 ML/MIN/1.73 = 65446) eGFR NON- AMER. (test 97 ML/MIN/1.73 code = 72813) CALC BUN/CREAT (test code = 34 RATIO [...] ALT (test code = 2219) 25 U/L [id number] 00:00:00 Test Item Value Reference Range Interpretation Comments TSH, THIRD GENERATION (test code 2.490 UIU/ML = 2821) [id number] 00:00:00 Test Item Value Reference Range Interpretation Comments TSH, THIRD GENERATION (test code 2.490 UIU/ML = 2821) [id number] 00:00:00 Test Item Value Reference Range Interpretation Comments TSH, THIRD GENERATION (test code 2.490 UIU/ML = 2821) HEMOGLOBIN [id number] 00:00:00 Test Item Value Reference Range Interpretation Comments HEMOGLOBIN A1c (test code = 79947) 6.4 % HEMOGLOBIN [id number] 00:00:00 Test Item Value Reference Range Interpretation Comments HEMOGLOBIN A1c (test code = 40388) 6.4 % HEMOGLOBIN [id number] 00:00:00 Test Item Value Reference Range Interpretation Comments HEMOGLOBIN A1c (test code = 57760) 6.4 % COMPREHENSIVE METABOLIC [id number] 00:00:00 Test Item Value Reference Range Interpretation Comments GLUCOSE (test code = 2217) 206 MG/DL BUN (test code = 2208) 23 MG/DL CREATININE (test code = 2214) 0.67 MG/DL eGFR AMER. (test code 112 ML/MIN/1.73 = 98024) eGFR NON- AMER. (test 97 ML/MIN/1.73 code = 70538) CALC BUN/CREAT (test code = 34 RATIO [...] code = 2219) 25 U/L COMPREHENSIVE METABOLIC [id number] 00:00:00 Test Item Value Reference Range Interpretation Comments GLUCOSE (test code = 2217) 206 MG/DL BUN (test code = 2208) 23 MG/DL CREATININE (test code = 2214) 0.67 MG/DL eGFR AMER. (test code 112 ML/MIN/1.73 = 27454) eGFR NON- AMER. (test 97 ML/MIN/1.73 code = 15570) CALC BUN/CREAT (test code = 34 RATIO [...] ALT (test code = 2219) 25 U/L [id number] 00:00:00 Test Item Value Reference Range Interpretation Comments TSH, THIRD GENERATION (test code 2.490 UIU/ML = 2821) [id number] 00:00:00 Test Item Value Reference Range Interpretation Comments TSH, THIRD GENERATION (test code 2.490 UIU/ML = 2821) HEMOGLOBIN [id number] 00:00:00 Test Item Value Reference Range Interpretation Comments HEMOGLOBIN A1c (test code = 74000) 6.4 % HEMOGLOBIN [id number] 00:00:00 Test Item Value Reference Range Interpretation Comments HEMOGLOBIN A1c (test code = 19376) 6.4 % COMPREHENSIVE METABOLIC [id number] 00:00:00 Test Item Value Reference Range Interpretation Comments GLUCOSE (test code = 2217) 206 MG/DL BUN (test code = 2208) 23 MG/DL CREATININE (test code = 2214) 0.67 MG/DL eGFR AMER. (test code 112 ML/MIN/1.73 = 41725) eGFR NON- AMER. (test 97 ML/MIN/1.73 code = 34760) CALC BUN/CREAT (test code = 34 RATIO [...] ALT (test code = 2219) 25 U/L [id number] 00:00:00 Test Item Value Reference Range Interpretation Comments TSH, THIRD GENERATION (test code 2.490 UIU/ML = 2821) [id number] 00:00:00 Test Item Value Reference Range Interpretation Comments TSH, THIRD GENERATION (test code 2.490 UIU/ML = 2821) [id number] 00:00:00 Test Item Value Reference Range Interpretation Comments TSH, THIRD GENERATION (test code 2.490 UIU/ML = 2821) HEMOGLOBIN [id number] 00:00:00 Test Item Value Reference Range Interpretation Comments HEMOGLOBIN A1c (test code = 45423) 6.4 % HEMOGLOBIN [id number] 00:00:00 Test Item Value Reference Range Interpretation Comments HEMOGLOBIN A1c (test code = 33800) 6.4 % HEMOGLOBIN [id number] 00:00:00 Test Item Value Reference Range Interpretation Comments HEMOGLOBIN A1c (test code = 98077) 6.4 % COMPREHENSIVE METABOLIC [id number] 00:00:00 Test Item Value Reference Range Interpretation Comments GLUCOSE (test code = 2217) 206 MG/DL BUN (test code = 2208) 23 MG/DL CREATININE (test code = 2214) 0.67 MG/DL eGFR AMER. (test code 112 ML/MIN/1.73 = 88827) eGFR NON- AMER. (test 97 ML/MIN/1.73 code = 84587) CALC BUN/CREAT (test code = 34 RATIO [...] code = 2219) 25 U/L COMPREHENSIVE METABOLIC [id number] 00:00:00 Test Item Value Reference Range Interpretation Comments GLUCOSE (test code = 2217) 206 MG/DL BUN (test code = 2208) 23 MG/DL CREATININE (test code = 2214) 0.67 MG/DL eGFR AMER. (test code 112 ML/MIN/1.73 = 73670) eGFR NON- AMER. (test 97 ML/MIN/1.73 code = 04784) CALC BUN/CREAT (test code = 34 RATIO [...] = 2219) 25 U/L VAGINAL PATHOGENS DNA [id number] 00:00:00 Test Item Value Reference Range Interpretation Comments MARK SPECIES (test code = ) NEGATIVE G. VAGINALIS (test code = 60592) NEGATIVE T. VAGINALIS (test code = 52541) NEGATIVE VAGINAL PATHOGENS DNA [id number] 00:00:00 Test Item Value Reference Range Interpretation Comments MARK SPECIES (test code = 36843) NEGATIVE G. VAGINALIS (test code = 69098) NEGATIVE T. VAGINALIS (test code = 33146) NEGATIVE VAGINAL PATHOGENS DNA [id number] 00:00:00 Test Item Value Reference Range Interpretation Comments MARK SPECIES (test code = 92145) NEGATIVE G. VAGINALIS (test code = 05651) NEGATIVE T. VAGINALIS (test code = 40579) NEGATIVE VAGINAL PATHOGENS DNA [id number] 00:00:00 Test Item Value Reference Range Interpretation Comments MARK SPECIES (test code = 99206) NEGATIVE G. VAGINALIS (test code = 23398) NEGATIVE T. VAGINALIS (test code = 74644) NEGATIVE VAGINAL PATHOGENS DNA [id number] 00:00:00 Test Item Value Reference Range Interpretation Comments MARK SPECIES (test code = 40650) NEGATIVE G. VAGINALIS (test code = 29778) NEGATIVE T. VAGINALIS (test code = 87647) NEGATIVE VAGINAL PATHOGENS DNA [id number] 00:00:00 Test Item Value Reference Range Interpretation Comments MARK SPECIES (test code = 96729) NEGATIVE G. VAGINALIS (test code = 19867) NEGATIVE T. VAGINALIS (test code = 64604) NEGATIVE VAGINAL PATHOGENS DNA [id number] 00:00:00 Test Item Value Reference Range Interpretation Comments MARK SPECIES (test code = ) NEGATIVE G. VAGINALIS (test code = ) NEGATIVE T. VAGINALIS (test code = ) NEGATIVE HEMOGLOBIN A1c [ADDED]2018-12-01 00:00:00 Test Item Value Reference Range Interpretation Comments HEMOGLOBIN A1c (test code = 22263) 6.7 % HEMOGLOBIN A1c [ADDED]2018-12-01 00:00:00 Test Item Value Reference Range Interpretation Comments HEMOGLOBIN A1c (test code = 92145) 6.7 % HEMOGLOBIN A1c [ADDED]2018-12-01 00:00:00 Test Item Value Reference Range Interpretation Comments HEMOGLOBIN A1c (test code = 26723) 6.7 % COMPREHENSIVE METABOLIC PANEL [ADDED]2018-12-01 00:00:00 Test Item Value Reference Range Interpretation Comments GLUCOSE (test code = 2217) 136 MG/DL BUN (test code = 2208) 15 MG/DL CREATININE (test code = 2214) 0.64 MG/DL eGFR AMER. (test code 115 ML/MIN/1.73 = 95337) eGFR NON- AMER. (test 99 ML/MIN/1.73 code = 96419) CALC BUN/CREAT (test code = 23 RATIO [...] eGFR AMER. (test code 115 ML/MIN/1.73 = 12006) eGFR NON- AMER. (test 99 ML/MIN/1.73 code = 21075) CALC BUN/CREAT (test code = 23 RATIO [...] Interpretation Comments HEMOGLOBIN A1c (test code = 88461) 6.7 % HEMOGLOBIN A1c [ADDED]2018-12-01 00:00:00 Test Item Value Reference Range Interpretation Comments HEMOGLOBIN A1c (test code = 22806) 6.7 % HEMOGLOBIN A1c [ADDED]2018-12-01 00:00:00 Test Item Value Reference Range Interpretation Comments HEMOGLOBIN A1c (test code = 28175) 6.7 % COMPREHENSIVE METABOLIC PANEL [ADDED]2018-12-01 00:00:00 Test Item Value Reference Range Interpretation Comments GLUCOSE (test code = 2217) 136 MG/DL BUN (test code = 2208) 15 MG/DL CREATININE (test code = 2214) 0.64 MG/DL eGFR AMER. (test code 115 ML/MIN/1.73 = 35160) eGFR NON- AMER. (test 99 ML/MIN/1.73 code = 14099) CALC BUN/CREAT (test code = 23 RATIO [...] eGFR AMER. (test code 115 ML/MIN/1.73 = 45259) eGFR NON- AMER. (test 99 ML/MIN/1.73 code = 33272) CALC BUN/CREAT (test code = 23 RATIO [...] Interpretation Comments HEMOGLOBIN A1c (test code = 83058) 6.7 % HEMOGLOBIN A1c [ADDED]2018-12-01 00:00:00 Test Item Value Reference Range Interpretation Comments HEMOGLOBIN A1c (test code = 24390) 6.7 % COMPREHENSIVE METABOLIC PANEL [ADDED]2018-12-01 00:00:00 Test Item Value Reference Range Interpretation Comments GLUCOSE (test code = 2217) 136 MG/DL BUN (test code = 2208) 15 MG/DL CREATININE (test code = 2214) 0.64 MG/DL eGFR AMER. (test code 115 ML/MIN/1.73 = 03418) eGFR NON- AMER. (test 99 ML/MIN/1.73 code = 67284) CALC BUN/CREAT (test code = 23 RATIO [...] Interpretation Comments HEMOGLOBIN A1c (test code = 98506) 6.7 % HEMOGLOBIN A1c [ADDED]2018-12-01 00:00:00 Test Item Value Reference Range Interpretation Comments HEMOGLOBIN A1c (test code = 39039) 6.7 % HEMOGLOBIN A1c [ADDED]2018-12-01 00:00:00 Test Item Value Reference Range Interpretation Comments HEMOGLOBIN A1c (test code = 85298) 6.7 % COMPREHENSIVE METABOLIC PANEL [ADDED]2018-12-01 00:00:00 Test Item Value Reference Range Interpretation Comments GLUCOSE (test code = 2217) 136 MG/DL BUN (test code = 2208) 15 MG/DL CREATININE (test code = 2214) 0.64 MG/DL eGFR AMER. (test code 115 ML/MIN/1.73 = 08262) eGFR NON- AMER. (test 99 ML/MIN/1.73 code = 58565) CALC BUN/CREAT (test code = 23 RATIO [...] eGFR AMER. (test code 115 ML/MIN/1.73 = 53739) eGFR NON- AMER. (test 99 ML/MIN/1.73 code = 39361) CALC BUN/CREAT (test code = 23 RATIO [...] code 1.280 UIU/ML = 2821) CBC W/AUTO [id number] 00:00:00 Test Item Value Reference Range Interpretation [...] code = 1015) 346 K/UL CBC W/AUTO [id number] 00:00:00 Test Item Value Reference Range Interpretation [...] code = 1015) 346 K/UL CBC W/AUTO [id number] 00:00:00 Test Item Value Reference Range Interpretation [...] (test code = 1015) 346 K/UL HEMOGLOBIN [id number] 00:00:00 Test Item Value Reference Range Interpretation Comments HEMOGLOBIN A1c (test code = 98758) 5.9 % HEMOGLOBIN [id number] 00:00:00 Test Item Value Reference Range Interpretation Comments HEMOGLOBIN A1c (test code = 21458) 5.9 % HEMOGLOBIN [id number] 00:00:00 Test Item Value Reference Range Interpretation Comments HEMOGLOBIN A1c (test code = 78532) 5.9 % LIPID [id number] 00:00:00 Test Item Value Reference Range Interpretation Comments CHOLESTEROL (test code = 2210) 318 MG/DL TRIGLYCERIDES (test code = 2232) 263 MG/DL HDL CHOLESTEROL (test code = 2220) 51 MG/DL CALC LDL CHOL (test code = 2237) 214 MG/DL RISK RATIO LDL/HDL (test code = 4.20 RATIO 2238) LIPID [id number] 00:00:00 Test Item Value Reference Range Interpretation Comments CHOLESTEROL (test code = 2210) 318 MG/DL TRIGLYCERIDES (test code = 2232) 263 MG/DL HDL CHOLESTEROL (test code = 2220) 51 MG/DL CALC LDL CHOL (test code = 2237) 214 MG/DL RISK RATIO LDL/HDL (test code = 4.20 RATIO 2238) COMPREHENSIVE METABOLIC [id number] 00:00:00 Test Item Value Reference Range Interpretation Comments GLUCOSE (test code = 2217) 113 MG/DL BUN (test code = 2208) 18 MG/DL CREATININE (test code = 2214) 0.70 MG/DL eGFR AMER. (test code 111 ML/MIN/1.73 = 32708) eGFR NON- AMER. (test 96 ML/MIN/1.73 code = 43056) CALC BUN/CREAT (test code = 26 RATIO [...] code = 2219) 31 U/L COMPREHENSIVE METABOLIC [id number] 00:00:00 Test Item Value Reference Range Interpretation Comments GLUCOSE (test code = 2217) 113 MG/DL BUN (test code = 2208) 18 MG/DL CREATININE (test code = 2214) 0.70 MG/DL eGFR AMER. (test code 111 ML/MIN/1.73 = 21658) eGFR NON- AMER. (test 96 ML/MIN/1.73 code = 81875) CALC BUN/CREAT (test code = 26 RATIO [...] ALT (test code = 2219) 31 U/L [id number] 00:00:00 Test Item Value Reference Range Interpretation Comments TSH, THIRD GENERATION (test code 2.520 UIU/ML = 2821) [id number] 00:00:00 Test Item Value Reference Range Interpretation Comments TSH, THIRD GENERATION (test code 2.520 UIU/ML = 2821) [id number] 00:00:00 Test Item Value Reference Range Interpretation Comments TSH, THIRD GENERATION (test code 2.520 UIU/ML = 2821) CBC W/AUTO [id number] 00:00:00 Test Item Value Reference Range Interpretation [...] code = 1015) 346 K/UL CBC W/AUTO [id number] 00:00:00 Test Item Value Reference Range Interpretation [...] code = 1015) 346 K/UL CBC W/AUTO [id number] 00:00:00 Test Item Value Reference Range Interpretation [...] (test code = 1015) 346 K/UL HEMOGLOBIN [id number] 00:00:00 Test Item Value Reference Range Interpretation Comments HEMOGLOBIN A1c (test code = 90370) 5.9 % HEMOGLOBIN [id number] 00:00:00 Test Item Value Reference Range Interpretation Comments HEMOGLOBIN A1c (test code = 32677) 5.9 % HEMOGLOBIN [id number] 00:00:00 Test Item Value Reference Range Interpretation Comments HEMOGLOBIN A1c (test code = 59173) 5.9 % LIPID [id number] 00:00:00 Test Item Value Reference Range Interpretation Comments CHOLESTEROL (test code = 2210) 318 MG/DL TRIGLYCERIDES (test code = 2232) 263 MG/DL HDL CHOLESTEROL (test code = 2220) 51 MG/DL CALC LDL CHOL (test code = 2237) 214 MG/DL RISK RATIO LDL/HDL (test code = 4.20 RATIO 2238) LIPID [id number] 00:00:00 Test Item Value Reference Range Interpretation Comments CHOLESTEROL (test code = 2210) 318 MG/DL TRIGLYCERIDES (test code = 2232) 263 MG/DL HDL CHOLESTEROL (test code = 2220) 51 MG/DL CALC LDL CHOL (test code = 2237) 214 MG/DL RISK RATIO LDL/HDL (test code = 4.20 RATIO 2238) COMPREHENSIVE METABOLIC [id number] 00:00:00 Test Item Value Reference Range Interpretation Comments GLUCOSE (test code = 2217) 113 MG/DL BUN (test code = 2208) 18 MG/DL CREATININE (test code = 2214) 0.70 MG/DL eGFR AMER. (test code 111 ML/MIN/1.73 = 34553) eGFR NON- AMER. (test 96 ML/MIN/1.73 code = 68014) CALC BUN/CREAT (test code = 26 RATIO [...] code = 2219) 31 U/L COMPREHENSIVE METABOLIC [id number] 00:00:00 Test Item Value Reference Range Interpretation Comments GLUCOSE (test code = 2217) 113 MG/DL BUN (test code = 2208) 18 MG/DL CREATININE (test code = 2214) 0.70 MG/DL eGFR AMER. (test code 111 ML/MIN/1.73 = 62585) eGFR NON- AMER. (test 96 ML/MIN/1.73 code = 78101) CALC BUN/CREAT (test code = 26 RATIO [...] ALT (test code = 2219) 31 U/L [id number] 00:00:00 Test Item Value Reference Range Interpretation Comments TSH, THIRD GENERATION (test code 2.520 UIU/ML = 2821) [id number] 00:00:00 Test Item Value Reference Range Interpretation Comments TSH, THIRD GENERATION (test code 2.520 UIU/ML = 2821) [id number] 00:00:00 Test Item Value Reference Range Interpretation Comments TSH, THIRD GENERATION (test code 2.520 UIU/ML = 2821) CBC W/AUTO [id number] 00:00:00 Test Item Value Reference Range Interpretation [...] code = 1015) 346 K/UL CBC W/AUTO [id number] 00:00:00 Test Item Value Reference Range Interpretation [...] (test code = 1015) 346 K/UL HEMOGLOBIN [id number] 00:00:00 Test Item Value Reference Range Interpretation Comments HEMOGLOBIN A1c (test code = 69755) 5.9 % HEMOGLOBIN [id number] 00:00:00 Test Item Value Reference Range Interpretation Comments HEMOGLOBIN A1c (test code = 92379) 5.9 % LIPID [id number] 00:00:00 Test Item Value Reference Range Interpretation Comments CHOLESTEROL (test code = 2210) 318 MG/DL TRIGLYCERIDES (test code = 2232) 263 MG/DL HDL CHOLESTEROL (test code = 2220) 51 MG/DL CALC LDL CHOL (test code = 2237) 214 MG/DL RISK RATIO LDL/HDL (test code = 4.20 RATIO 2238) COMPREHENSIVE METABOLIC [id number] 00:00:00 Test Item Value Reference Range Interpretation Comments GLUCOSE (test code = 2217) 113 MG/DL BUN (test code = 2208) 18 MG/DL CREATININE (test code = 2214) 0.70 MG/DL eGFR AMER. (test code 111 ML/MIN/1.73 = 60474) eGFR NON- AMER. (test 96 ML/MIN/1.73 code = 84843) CALC BUN/CREAT (test code = 26 RATIO [...] ALT (test code = 2219) 31 U/L [id number] 00:00:00 Test Item Value Reference Range Interpretation Comments TSH, THIRD GENERATION (test code 2.520 UIU/ML = 2821) [id number] 00:00:00 Test Item Value Reference Range Interpretation Comments TSH, THIRD GENERATION (test code 2.520 UIU/ML = 2821) CBC W/AUTO [id number] 00:00:00 Test Item Value Reference Range Interpretation [...] code = 1015) 346 K/UL CBC W/AUTO [id number] 00:00:00 Test Item Value Reference Range Interpretation [...] code = 1015) 346 K/UL CBC W/AUTO [id number] 00:00:00 Test Item Value Reference Range Interpretation [...] (test code = 1015) 346 K/UL HEMOGLOBIN [id number] 00:00:00 Test Item Value Reference Range Interpretation Comments HEMOGLOBIN A1c (test code = 74645) 5.9 % HEMOGLOBIN [id number] 00:00:00 Test Item Value Reference Range Interpretation Comments HEMOGLOBIN A1c (test code = 11182) 5.9 % HEMOGLOBIN [id number] 00:00:00 Test Item Value Reference Range Interpretation Comments HEMOGLOBIN A1c (test code = 98541) 5.9 % LIPID [id number] 00:00:00 Test Item Value Reference Range Interpretation Comments CHOLESTEROL (test code = 2210) 318 MG/DL TRIGLYCERIDES (test code = 2232) 263 MG/DL HDL CHOLESTEROL (test code = 2220) 51 MG/DL CALC LDL CHOL (test code = 2237) 214 MG/DL RISK RATIO LDL/HDL (test code = 4.20 RATIO 2238) LIPID [id number] 00:00:00 Test Item Value Reference Range Interpretation Comments CHOLESTEROL (test code = 2210) 318 MG/DL TRIGLYCERIDES (test code = 2232) 263 MG/DL HDL CHOLESTEROL (test code = 2220) 51 MG/DL CALC LDL CHOL (test code = 2237) 214 MG/DL RISK RATIO LDL/HDL (test code = 4.20 RATIO 2238) COMPREHENSIVE METABOLIC [id number] 00:00:00 Test Item Value Reference Range Interpretation Comments GLUCOSE (test code = 2217) 113 MG/DL BUN (test code = 2208) 18 MG/DL CREATININE (test code = 2214) 0.70 MG/DL eGFR AMER. (test code 111 ML/MIN/1.73 = 45591) eGFR NON- AMER. (test 96 ML/MIN/1.73 code = 31869) CALC BUN/CREAT (test code = 26 RATIO [...] code = 2219) 31 U/L COMPREHENSIVE METABOLIC [id number] 00:00:00 Test Item Value Reference Range Interpretation Comments GLUCOSE (test code = 2217) 113 MG/DL BUN (test code = 2208) 18 MG/DL CREATININE (test code = 2214) 0.70 MG/DL eGFR AMER. (test code 111 ML/MIN/1.73 = 36331) eGFR NON- AMER. (test 96 ML/MIN/1.73 code = 88575) CALC BUN/CREAT (test code = 26 RATIO [...] ALT (test code = 2219) 31 U/L [id number] 00:00:00 Test Item Value Reference Range Interpretation Comments TSH, THIRD GENERATION (test code 2.520 UIU/ML = 2821) [id number] 00:00:00 Test Item Value Reference Range Interpretation Comments TSH, THIRD GENERATION (test code 2.520 UIU/ML = 2821) [id number] 00:00:00 Test Item Value Reference Range Interpretation Comments TSH, THIRD GENERATION (test code 2.520 UIU/ML = 2821) CULTURE, [id number] 00:00:00 Test Item Value Reference Range Interpretation Comments CULTURE, URINE (test SPECIMEN NUMBER: code = 45958) [id number] CULTURE, [id number] 00:00:00 Test Item Value Reference Range Interpretation Comments CULTURE, URINE (test SPECIMEN NUMBER: code = 70187) [id number] CULTURE, [id number] 00:00:00 Test Item Value Reference Range Interpretation Comments CULTURE, URINE (test SPECIMEN NUMBER: code = 73276) [id number] CULTURE, [id number] 00:00:00 Test Item Value Reference Range Interpretation Comments CULTURE, URINE (test SPECIMEN NUMBER: code = 60516) [id number] CULTURE, [id number] 00:00:00 Test Item Value Reference Range Interpretation Comments CULTURE, URINE (test SPECIMEN NUMBER: code = 74531) [id number] CULTURE, [id number] 00:00:00 Test Item Value Reference Range Interpretation Comments CULTURE, URINE (test SPECIMEN NUMBER: code = 23954) [id number] CULTURE, [id number] 00:00:00 Test Item Value Reference Range Interpretation Comments CULTURE, URINE (test SPECIMEN NUMBER: code = 44000) [id number] CULTURE, [id number] 00:00:00 Test Item Value Reference Range Interpretation Comments CULTURE, URINE (test SPECIMEN NUMBER: code = 19096) [id number] CULTURE, [id number] 00:00:00 Test Item Value Reference Range Interpretation Comments CULTURE, URINE (test SPECIMEN NUMBER: code = 66622) [id number] CULTURE, [id number] 00:00:00 Test Item Value Reference Range Interpretation Comments CULTURE, URINE (test SPECIMEN NUMBER: code = 34726) [id number] CULTURE, [id number] 00:00:00 Test Item Value Reference Range Interpretation Comments CULTURE, URINE (test SPECIMEN NUMBER: code = 79887) [id number] CULTURE, [id number] 00:00:00 Test Item Value Reference Range Interpretation Comments CULTURE, URINE (test SPECIMEN NUMBER: code = 18225) [id number] CULTURE, [id number] 00:00:00 Test Item Value Reference Range Interpretation Comments CULTURE, URINE (test SPECIMEN NUMBER: code = 96683) [id number] CULTURE, [id number] 00:00:00 Test Item Value Reference Range Interpretation Comments CULTURE, URINE (test SPECIMEN NUMBER: code = 41220) [id number] BASIC METABOLIC [id number] 00:00:00 Test Item Value Reference Range Interpretation Comments GLUCOSE (test code = 2217) 135 MG/DL BUN (test code = 2208) 25 MG/DL CREATININE (test code = 2214) 0.76 MG/DL eGFR AMER. (test code 101 ML/MIN/1.73 = 26446) eGFR NON- AMER. (test 87 ML/MIN/1.73 code = 52467) SODIUM (test code = 2231) 139 MEQ/L POTASSIUM (test code = 2228) 4.7 MEQ/L CHLORIDE (test code = 2215) 99 MEQ/L CARBON DIOXIDE (test code = 26 MEQ/L 2206) CALCIUM (test code = 2209) 9.4 MG/DL BASIC METABOLIC [id number] 00:00:00 Test Item Value Reference Range Interpretation Comments GLUCOSE (test code = 2217) 135 MG/DL BUN (test code = 2208) 25 MG/DL CREATININE (test code = 2214) 0.76 MG/DL eGFR AMER. (test code 101 ML/MIN/1.73 = 41702) eGFR NON- AMER. (test 87 ML/MIN/1.73 code = 11609) SODIUM (test code = 2231) 139 MEQ/L POTASSIUM (test code = 2228) 4.7 MEQ/L CHLORIDE (test code = 2215) 99 MEQ/L CARBON DIOXIDE (test code = 26 MEQ/L 2206) CALCIUM (test code = 2209) 9.4 MG/DL LIPID [id number] 00:00:00 Test Item Value Reference Range Interpretation Comments CHOLESTEROL (test code = 2210) 262 MG/DL TRIGLYCERIDES (test code = 2232) 300 MG/DL HDL CHOLESTEROL (test code = 2220) 36 MG/DL CALC LDL CHOL (test code = 2237) 166 MG/DL RISK RATIO LDL/HDL (test code = 4.61 RATIO 2238) LIPID [id number] 00:00:00 Test Item Value Reference Range Interpretation Comments CHOLESTEROL (test code = 2210) 262 MG/DL TRIGLYCERIDES (test code = 2232) 300 MG/DL HDL CHOLESTEROL (test code = 2220) 36 MG/DL CALC LDL CHOL (test code = 2237) 166 MG/DL RISK RATIO LDL/HDL (test code = 4.61 RATIO 2238) HEMOGLOBIN [id number] 00:00:00 Test Item Value Reference Range Interpretation Comments HEMOGLOBIN A1c (test code = 68810) 6.2 % HEMOGLOBIN [id number] 00:00:00 Test Item Value Reference Range Interpretation Comments HEMOGLOBIN A1c (test code = 29214) 6.2 % HEMOGLOBIN [id number] 00:00:00 Test Item Value Reference Range Interpretation Comments HEMOGLOBIN A1c (test code = 32102) 6.2 % [id number] 00:00:00 Test Item Value Reference Range Interpretation Comments TSH, THIRD GENERATION (test code 0.988 UIU/ML = 2821) [id number] 00:00:00 Test Item Value Reference Range Interpretation Comments TSH, THIRD GENERATION (test code 0.988 UIU/ML = 2821) [id number] 00:00:00 Test Item Value Reference Range Interpretation Comments TSH, THIRD GENERATION (test code 0.988 UIU/ML = 2821) BASIC METABOLIC [id number] 00:00:00 Test Item Value Reference Range Interpretation Comments GLUCOSE (test code = 2217) 135 MG/DL BUN (test code = 2208) 25 MG/DL CREATININE (test code = 2214) 0.76 MG/DL eGFR AMER. (test code 101 ML/MIN/1.73 = 58781) eGFR NON- AMER. (test 87 ML/MIN/1.73 code = 78269) SODIUM (test code = 2231) 139 MEQ/L POTASSIUM (test code = 2228) 4.7 MEQ/L CHLORIDE (test code = 2215) 99 MEQ/L CARBON DIOXIDE (test code = 26 MEQ/L 2205) CALCIUM (test code = 2209) 9.4 MG/DL BASIC METABOLIC [id number] 00:00:00 Test Item Value Reference Range Interpretation Comments GLUCOSE (test code = 2217) 135 MG/DL BUN (test code = 2208) 25 MG/DL CREATININE (test code = 2214) 0.76 MG/DL eGFR AMER. (test code 101 ML/MIN/1.73 = 22354) eGFR NON- AMER. (test 87 ML/MIN/1.73 code = 00061) SODIUM (test code = 2231) 139 MEQ/L POTASSIUM (test code = 2228) 4.7 MEQ/L CHLORIDE (test code = 2215) 99 MEQ/L CARBON DIOXIDE (test code = 26 MEQ/L 2206) CALCIUM (test code = 2209) 9.4 MG/DL LIPID [id number] 00:00:00 Test Item Value Reference Range Interpretation Comments CHOLESTEROL (test code = 2210) 262 MG/DL TRIGLYCERIDES (test code = 2232) 300 MG/DL HDL CHOLESTEROL (test code = 2220) 36 MG/DL CALC LDL CHOL (test code = 2237) 166 MG/DL RISK RATIO LDL/HDL (test code = 4.61 RATIO 2238) LIPID [id number] 00:00:00 Test Item Value Reference Range Interpretation Comments CHOLESTEROL (test code = 2210) 262 MG/DL TRIGLYCERIDES (test code = 2232) 300 MG/DL HDL CHOLESTEROL (test code = 2220) 36 MG/DL CALC LDL CHOL (test code = 2237) 166 MG/DL RISK RATIO LDL/HDL (test code = 4.61 RATIO 2238) HEMOGLOBIN [id number] 00:00:00 Test Item Value Reference Range Interpretation Comments HEMOGLOBIN A1c (test code = 09799) 6.2 % HEMOGLOBIN [id number] 00:00:00 Test Item Value Reference Range Interpretation Comments HEMOGLOBIN A1c (test code = 99792) 6.2 % HEMOGLOBIN [id number] 00:00:00 Test Item Value Reference Range Interpretation Comments HEMOGLOBIN A1c (test code = 18607) 6.2 % [id number] 00:00:00 Test Item Value Reference Range Interpretation Comments TSH, THIRD GENERATION (test code 0.988 UIU/ML = 2821) [id number] 00:00:00 Test Item Value Reference Range Interpretation Comments TSH, THIRD GENERATION (test code 0.988 UIU/ML = 2821) [id number] 00:00:00 Test Item Value Reference Range Interpretation Comments TSH, THIRD GENERATION (test code 0.988 UIU/ML = 2821) BASIC METABOLIC [id number] 00:00:00 Test Item Value Reference Range Interpretation Comments GLUCOSE (test code = 2217) 135 MG/DL BUN (test code = 2208) 25 MG/DL CREATININE (test code = 2214) 0.76 MG/DL eGFR AMER. (test code 101 ML/MIN/1.73 = 52831) eGFR NON- AMER. (test 87 ML/MIN/1.73 code = 48699) SODIUM (test code = 2231) 139 MEQ/L POTASSIUM (test code = 2228) 4.7 MEQ/L CHLORIDE (test code = 2215) 99 MEQ/L CARBON DIOXIDE (test code = 26 MEQ/L 2206) CALCIUM (test code = 2209) 9.4 MG/DL LIPID [id number] 00:00:00 Test Item Value Reference Range Interpretation Comments CHOLESTEROL (test code = 2210) 262 MG/DL TRIGLYCERIDES (test code = 2232) 300 MG/DL HDL CHOLESTEROL (test code = 2220) 36 MG/DL CALC LDL CHOL (test code = 2237) 166 MG/DL RISK RATIO LDL/HDL (test code = 4.61 RATIO 2238) HEMOGLOBIN [id number] 00:00:00 Test Item Value Reference Range Interpretation Comments HEMOGLOBIN A1c (test code = 06946) 6.2 % HEMOGLOBIN [id number] 00:00:00 Test Item Value Reference Range Interpretation Comments HEMOGLOBIN A1c (test code = 06561) 6.2 % [id number] 00:00:00 Test Item Value Reference Range Interpretation Comments TSH, THIRD GENERATION (test code 0.988 UIU/ML = 2821) [id number] 00:00:00 Test Item Value Reference Range Interpretation Comments TSH, THIRD GENERATION (test code 0.988 UIU/ML = 2821) BASIC METABOLIC [id number] 00:00:00 Test Item Value Reference Range Interpretation Comments GLUCOSE (test code = 2217) 135 MG/DL BUN (test code = 2208) 25 MG/DL CREATININE (test code = 2214) 0.76 MG/DL eGFR AMER. (test code 101 ML/MIN/1.73 = 49648) eGFR NON- AMER. (test 87 ML/MIN/1.73 code = 35904) SODIUM (test code = 2231) 139 MEQ/L POTASSIUM (test code = 2228) 4.7 MEQ/L CHLORIDE (test code = 2215) 99 MEQ/L CARBON DIOXIDE (test code = 26 MEQ/L 2206) CALCIUM (test code = 2209) 9.4 MG/DL BASIC METABOLIC [id number] 00:00:00 Test Item Value Reference Range Interpretation Comments GLUCOSE (test code = 2217) 135 MG/DL BUN (test code = 2208) 25 MG/DL CREATININE (test code = 2214) 0.76 MG/DL eGFR AMER. (test code 101 ML/MIN/1.73 = 50539) eGFR NON- AMER. (test 87 ML/MIN/1.73 code = 84517) SODIUM (test code = 2231) 139 MEQ/L POTASSIUM (test code = 2228) 4.7 MEQ/L CHLORIDE (test code = 2215) 99 MEQ/L CARBON DIOXIDE (test code = 26 MEQ/L 2206) CALCIUM (test code = 2209) 9.4 MG/DL LIPID [id number] 00:00:00 Test Item Value Reference Range Interpretation Comments CHOLESTEROL (test code = 2210) 262 MG/DL TRIGLYCERIDES (test code = 2232) 300 MG/DL HDL CHOLESTEROL (test code = 2220) 36 MG/DL CALC LDL CHOL (test code = 2237) 166 MG/DL RISK RATIO LDL/HDL (test code = 4.61 RATIO 2238) LIPID [id number] 00:00:00 Test Item Value Reference Range Interpretation Comments CHOLESTEROL (test code = 2210) 262 MG/DL TRIGLYCERIDES (test code = 2232) 300 MG/DL HDL CHOLESTEROL (test code = 2220) 36 MG/DL CALC LDL CHOL (test code = 2237) 166 MG/DL RISK RATIO LDL/HDL (test code = 4.61 RATIO 2238) HEMOGLOBIN [id number] 00:00:00 Test Item Value Reference Range Interpretation Comments HEMOGLOBIN A1c (test code = 41689) 6.2 % HEMOGLOBIN [id number] 00:00:00 Test Item Value Reference Range Interpretation Comments HEMOGLOBIN A1c (test code = 33556) 6.2 % HEMOGLOBIN [id number] 00:00:00 Test Item Value Reference Range Interpretation Comments HEMOGLOBIN A1c (test code = 30530) 6.2 % [id number] 00:00:00 Test Item Value Reference Range Interpretation Comments TSH, THIRD GENERATION (test code 0.988 UIU/ML = 2821) [id number] 00:00:00 Test Item Value Reference Range Interpretation Comments TSH, THIRD GENERATION (test code 0.988 UIU/ML = 2821) [id number] 00:00:00 Test Item Value Reference Range Interpretation Comments TSH, THIRD GENERATION (test code 0.988 UIU/ML = 2821) COMPREHENSIVE METABOLIC [id number] 00:00:00 Test Item Value Reference Range Interpretation Comments GLUCOSE (test code = 2217) 109 MG/DL BUN (test code = 2208) 25 MG/DL CREATININE (test code = 2214) 0.78 MG/DL eGFR AMER. (test code 98 ML/MIN/1.73 = 80991) eGFR NON- AMER. (test 84 ML/MIN/1.73 code = 68680) CALC BUN/CREAT (test code = 32 RATIO [...] code = 2219) 25 U/L COMPREHENSIVE METABOLIC [id number] 00:00:00 Test Item Value Reference Range Interpretation Comments GLUCOSE (test code = 2217) 109 MG/DL BUN (test code = 2208) 25 MG/DL CREATININE (test code = 2214) 0.78 MG/DL eGFR AMER. (test code 98 ML/MIN/1.73 = 67248) eGFR NON- AMER. (test 84 ML/MIN/1.73 code = 76256) CALC BUN/CREAT (test code = 32 RATIO [...] (test code = 2219) 25 U/L LIPID [id number] 00:00:00 Test Item Value Reference Range Interpretation Comments CHOLESTEROL (test code = 2210) 295 MG/DL TRIGLYCERIDES (test code = 2232) 218 MG/DL HDL CHOLESTEROL (test code = 2220) 46 MG/DL CALC LDL CHOL (test code = 2237) 205 MG/DL RISK RATIO LDL/HDL (test code = 4.47 RATIO 2238) LIPID [id number] 00:00:00 Test Item Value Reference Range Interpretation Comments CHOLESTEROL (test code = 2210) 295 MG/DL TRIGLYCERIDES (test code = 2232) 218 MG/DL HDL CHOLESTEROL (test code = 2220) 46 MG/DL CALC LDL CHOL (test code = 2237) 205 MG/DL RISK RATIO LDL/HDL (test code = 4.47 RATIO 2238) HEMOGLOBIN [id number] 00:00:00 Test Item Value Reference Range Interpretation Comments HEMOGLOBIN A1c (test code = 10166) 7.0 % HEMOGLOBIN [id number] 00:00:00 Test Item Value Reference Range Interpretation Comments HEMOGLOBIN A1c (test code = 68695) 7.0 % HEMOGLOBIN [id number] 00:00:00 Test Item Value Reference Range Interpretation Comments HEMOGLOBIN A1c (test code = 89439) 7.0 % [id number] 00:00:00 Test Item Value Reference Range Interpretation Comments TSH, THIRD GENERATION (test code 0.565 UIU/ML = 2821) [id number] 00:00:00 Test Item Value Reference Range Interpretation Comments TSH, THIRD GENERATION (test code 0.565 UIU/ML = 2821) [id number] 00:00:00 Test Item Value Reference Range Interpretation Comments TSH, THIRD GENERATION (test code 0.565 UIU/ML = 2821) COMPREHENSIVE METABOLIC [id number] 00:00:00 Test Item Value Reference Range Interpretation Comments GLUCOSE (test code = 2217) 109 MG/DL BUN (test code = 2208) 25 MG/DL CREATININE (test code = 2214) 0.78 MG/DL eGFR AMER. (test code 98 ML/MIN/1.73 = 56827) eGFR NON- AMER. (test 84 ML/MIN/1.73 code = 78855) CALC BUN/CREAT (test code = 32 RATIO [...] code = 2219) 25 U/L COMPREHENSIVE METABOLIC [id number] 00:00:00 Test Item Value Reference Range Interpretation Comments GLUCOSE (test code = 2217) 109 MG/DL BUN (test code = 2208) 25 MG/DL CREATININE (test code = 2214) 0.78 MG/DL eGFR AMER. (test code 98 ML/MIN/1.73 = 52586) eGFR NON- AMER. (test 84 ML/MIN/1.73 code = 26247) CALC BUN/CREAT (test code = 32 RATIO [...] (test code = 2219) 25 U/L LIPID [id number] 00:00:00 Test Item Value Reference Range Interpretation Comments CHOLESTEROL (test code = 2210) 295 MG/DL TRIGLYCERIDES (test code = 2232) 218 MG/DL HDL CHOLESTEROL (test code = 2220) 46 MG/DL CALC LDL CHOL (test code = 2237) 205 MG/DL RISK RATIO LDL/HDL (test code = 4.47 RATIO 2238) LIPID [id number] 00:00:00 Test Item Value Reference Range Interpretation Comments CHOLESTEROL (test code = 2210) 295 MG/DL TRIGLYCERIDES (test code = 2232) 218 MG/DL HDL CHOLESTEROL (test code = 2220) 46 MG/DL CALC LDL CHOL (test code = 2237) 205 MG/DL RISK RATIO LDL/HDL (test code = 4.47 RATIO 2238) HEMOGLOBIN [id number] 00:00:00 Test Item Value Reference Range Interpretation Comments HEMOGLOBIN A1c (test code = 38413) 7.0 % HEMOGLOBIN [id number] 00:00:00 Test Item Value Reference Range Interpretation Comments HEMOGLOBIN A1c (test code = 25863) 7.0 % HEMOGLOBIN [id number] 00:00:00 Test Item Value Reference Range Interpretation Comments HEMOGLOBIN A1c (test code = 91667) 7.0 % [id number] 00:00:00 Test Item Value Reference Range Interpretation Comments TSH, THIRD GENERATION (test code 0.565 UIU/ML = 2821) [id number] 00:00:00 Test Item Value Reference Range Interpretation Comments TSH, THIRD GENERATION (test code 0.565 UIU/ML = 2821) [id number] 00:00:00 Test Item Value Reference Range Interpretation Comments TSH, THIRD GENERATION (test code 0.565 UIU/ML = 2821) COMPREHENSIVE METABOLIC [id number] 00:00:00 Test Item Value Reference Range Interpretation Comments GLUCOSE (test code = 2217) 109 MG/DL BUN (test code = 2208) 25 MG/DL CREATININE (test code = 2214) 0.78 MG/DL eGFR AMER. (test code 98 ML/MIN/1.73 = 38807) eGFR NON- AMER. (test 84 ML/MIN/1.73 code = 01115) CALC BUN/CREAT (test code = 32 RATIO [...] (test code = 2219) 25 U/L LIPID [id number] 00:00:00 Test Item Value Reference Range Interpretation Comments CHOLESTEROL (test code = 2210) 295 MG/DL TRIGLYCERIDES (test code = 2232) 218 MG/DL HDL CHOLESTEROL (test code = 2220) 46 MG/DL CALC LDL CHOL (test code = 2237) 205 MG/DL RISK RATIO LDL/HDL (test code = 4.47 RATIO 2238) HEMOGLOBIN [id number] 00:00:00 Test Item Value Reference Range Interpretation Comments HEMOGLOBIN A1c (test code = 53411) 7.0 % HEMOGLOBIN [id number] 00:00:00 Test Item Value Reference Range Interpretation Comments HEMOGLOBIN A1c (test code = 92445) 7.0 % [id number] 00:00:00 Test Item Value Reference Range Interpretation Comments TSH, THIRD GENERATION (test code 0.565 UIU/ML = 2821) [id number] 00:00:00 Test Item Value Reference Range Interpretation Comments TSH, THIRD GENERATION (test code 0.565 UIU/ML = 2821) COMPREHENSIVE METABOLIC [id number] 00:00:00 Test Item Value Reference Range Interpretation Comments GLUCOSE (test code = 2217) 109 MG/DL BUN (test code = 2208) 25 MG/DL CREATININE (test code = 2214) 0.78 MG/DL eGFR AMER. (test code 98 ML/MIN/1.73 = 81263) eGFR NON- AMER. (test 84 ML/MIN/1.73 code = 04913) CALC BUN/CREAT (test code = 32 RATIO [...] code = 2219) 25 U/L COMPREHENSIVE METABOLIC [id number] 00:00:00 Test Item Value Reference Range Interpretation Comments GLUCOSE (test code = 2217) 109 MG/DL BUN (test code = 2208) 25 MG/DL CREATININE (test code = 2214) 0.78 MG/DL eGFR AMER. (test code 98 ML/MIN/1.73 = 89007) eGFR NON- AMER. (test 84 ML/MIN/1.73 code = 33282) CALC BUN/CREAT (test code = 32 RATIO [...] (test code = 2219) 25 U/L LIPID [id number] 00:00:00 Test Item Value Reference Range Interpretation Comments CHOLESTEROL (test code = 2210) 295 MG/DL TRIGLYCERIDES (test code = 2232) 218 MG/DL HDL CHOLESTEROL (test code = 2220) 46 MG/DL CALC LDL CHOL (test code = 2237) 205 MG/DL RISK RATIO LDL/HDL (test code = 4.47 RATIO 2238) LIPID [id number] 00:00:00 Test Item Value Reference Range Interpretation Comments CHOLESTEROL (test code = 2210) 295 MG/DL TRIGLYCERIDES (test code = 2232) 218 MG/DL HDL CHOLESTEROL (test code = 2220) 46 MG/DL CALC LDL CHOL (test code = 2237) 205 MG/DL RISK RATIO LDL/HDL (test code = 4.47 RATIO 2238) HEMOGLOBIN [id number] 00:00:00 Test Item Value Reference Range Interpretation Comments HEMOGLOBIN A1c (test code = 80226) 7.0 % HEMOGLOBIN [id number] 00:00:00 Test Item Value Reference Range Interpretation Comments HEMOGLOBIN A1c (test code = 62229) 7.0 % HEMOGLOBIN [id number] 00:00:00 Test Item Value Reference Range Interpretation Comments HEMOGLOBIN A1c (test code = 81272) 7.0 % [id number] 00:00:00 Test Item Value Reference Range Interpretation Comments TSH, THIRD GENERATION (test code 0.565 UIU/ML = 2821) [id number] 00:00:00 Test Item Value Reference Range Interpretation Comments TSH, THIRD GENERATION (test code 0.565 UIU/ML = 2821) [id number] 00:00:00 Test Item Value Reference Range Interpretation Comments TSH, THIRD GENERATION (test code 0.565 UIU/ML = 2821) [id number] 00:00:00 Test Item Value Reference Range Interpretation Comments TSH, THIRD GENERATION (test code 0.379 UIU/ML = 2821) [id number] 00:00:00 Test Item Value Reference Range Interpretation Comments TSH, THIRD GENERATION (test code 0.379 UIU/ML = 2821) [id number] 00:00:00 Test Item Value Reference Range Interpretation Comments TSH, THIRD GENERATION (test code 0.379 UIU/ML = 2821) [id number] 00:00:00 Test Item Value Reference Range Interpretation Comments TSH, THIRD GENERATION (test code 0.379 UIU/ML = 2821) [id number] 00:00:00 Test Item Value Reference Range Interpretation Comments TSH, THIRD GENERATION (test code 0.379 UIU/ML = 2821) [id number] 00:00:00 Test Item Value Reference Range Interpretation Comments TSH, THIRD GENERATION (test code 0.379 UIU/ML = 2821) [id number] 00:00:00 Test Item Value Reference Range Interpretation Comments TSH, THIRD GENERATION (test code 0.379 UIU/ML = 2821) [id number] 00:00:00 Test Item Value Reference Range Interpretation Comments TSH, THIRD GENERATION (test code 0.379 UIU/ML = 2821) [id number] 00:00:00 Test Item Value Reference Range Interpretation Comments TSH, THIRD GENERATION (test code 0.379 UIU/ML = 2821) [id number] 00:00:00 Test Item Value Reference Range Interpretation Comments TSH, THIRD GENERATION (test code 0.379 UIU/ML = 2821) [id number] 00:00:00 Test Item Value Reference Range Interpretation Comments TSH, THIRD GENERATION (test code 0.379 UIU/ML = 2821) CULTURE, [id number] 00:00:00 Test Item Value Reference Range Interpretation Comments CULTURE, URINE (test SPECIMEN NUMBER: code = 66956) [id number] CULTURE, [id number] 00:00:00 Test Item Value Reference Range Interpretation Comments CULTURE, URINE (test SPECIMEN NUMBER: code = 87424) [id number] CULTURE, [id number] 00:00:00 Test Item Value Reference Range Interpretation Comments CULTURE, URINE (test SPECIMEN NUMBER: code = 05849) [id number] CULTURE, [id number] 00:00:00 Test Item Value Reference Range Interpretation Comments CULTURE, URINE (test SPECIMEN NUMBER: code = 07195) [id number] CULTURE, [id number] 00:00:00 Test Item Value Reference Range Interpretation Comments CULTURE, URINE (test SPECIMEN NUMBER: code = 87279) [id number] CULTURE, [id number] 00:00:00 Test Item Value Reference Range Interpretation Comments CULTURE, URINE (test SPECIMEN NUMBER: code = 76533) [id number] CULTURE, [id number] 00:00:00 Test Item Value Reference Range Interpretation Comments CULTURE, URINE (test SPECIMEN NUMBER: code = 57194) [id number] COMPREHENSIVE METABOLIC [id number] 00:00:00 Test Item Value Reference Range Interpretation Comments GLUCOSE (test code = 2217) 128 MG/DL BUN (test code = 2208) 26 MG/DL CREATININE (test code = 2214) 0.92 MG/DL eGFR AMER. (test code 81 ML/MIN/1.73 = 77195) eGFR NON- AMER. (test 70 ML/MIN/1.73 code = 72923) CALC BUN/CREAT (test code = 28 RATIO [...] code = 2219) 29 U/L COMPREHENSIVE METABOLIC [id number] 00:00:00 Test Item Value Reference Range Interpretation Comments GLUCOSE (test code = 2217) 128 MG/DL BUN (test code = 2208) 26 MG/DL CREATININE (test code = 2214) 0.92 MG/DL eGFR AMER. (test code 81 ML/MIN/1.73 = 09177) eGFR NON- AMER. (test 70 ML/MIN/1.73 code = 83642) CALC BUN/CREAT (test code = 28 RATIO [...] code = 2219) 29 U/L ACUTE HEPATITIS [id number] 00:00:00 Test Item Value Reference Range Interpretation Comments HEPATITIS A IgM (test code = NON-REACTIVE 39409) HEPATITIS B CORE IgM (test code NON-REACTIVE = 8948) HEPATITIS B SURF AG (test code = NON-REACTIVE 0141) HEPATITIS C ANTIBODY (test code NON-REACTIVE = 1064) INTERPRETATION HEPATITIS A: (NOTE) (test code = 2552) INTERPRETATION HEPATITIS B: (NOTE) (test code = 71526) INTERPRETATION HEPATITIS C: (NOTE) (test code = 09489) ACUTE HEPATITIS [id number] 00:00:00 Test Item Value Reference Range Interpretation Comments HEPATITIS A IgM (test code = NON-REACTIVE 96877) HEPATITIS B CORE IgM (test code NON-REACTIVE = 4644) HEPATITIS B SURF AG (test code = NON-REACTIVE 2569) HEPATITIS C ANTIBODY (test code NON-REACTIVE = 4675) INTERPRETATION HEPATITIS A: (NOTE) (test code = 2552) INTERPRETATION HEPATITIS B: (NOTE) (test code = 83033) INTERPRETATION HEPATITIS C: (NOTE) (test code = 17413) [id number] 00:00:00 Test Item Value Reference Range Interpretation Comments AMYLASE (test code = 2205) 32 U/L [id number] 00:00:00 Test Item Value Reference Range Interpretation Comments AMYLASE (test code = 2205) 32 U/L [id number] 00:00:00 Test Item Value Reference Range Interpretation Comments LIPASE (test code = 2058) 22 U/L [id number] 00:00:00 Test Item Value Reference Range Interpretation Comments LIPASE (test code = 2058) 22 U/L [id number] 00:00:00 Test Item Value Reference Range Interpretation Comments LIPASE (test code = 2058) 22 U/L COMPREHENSIVE METABOLIC [id number] 00:00:00 Test Item Value Reference Range Interpretation Comments GLUCOSE (test code = 2217) 128 MG/DL BUN (test code = 2208) 26 MG/DL CREATININE (test code = 2214) 0.92 MG/DL eGFR AMER. (test code 81 ML/MIN/1.73 = 78095) eGFR NON- AMER. (test 70 ML/MIN/1.73 code = 87285) CALC BUN/CREAT (test code = 28 RATIO [...] code = 2219) 29 U/L COMPREHENSIVE METABOLIC [id number] 00:00:00 Test Item Value Reference Range Interpretation Comments GLUCOSE (test code = 2217) 128 MG/DL BUN (test code = 2208) 26 MG/DL CREATININE (test code = 2214) 0.92 MG/DL eGFR AMER. (test code 81 ML/MIN/1.73 = 13009) eGFR NON- AMER. (test 70 ML/MIN/1.73 code = 37365) CALC BUN/CREAT (test code = 28 RATIO [...] code = 2219) 29 U/L ACUTE HEPATITIS [id number] 00:00:00 Test Item Value Reference Range Interpretation Comments HEPATITIS A IgM (test code = NON-REACTIVE 17566) HEPATITIS B CORE IgM (test code NON-REACTIVE = 5424) HEPATITIS B SURF AG (test code = NON-REACTIVE 9858) HEPATITIS C ANTIBODY (test code NON-REACTIVE = 8186) INTERPRETATION HEPATITIS A: (NOTE) (test code = 2552) INTERPRETATION HEPATITIS B: (NOTE) (test code = 53840) INTERPRETATION HEPATITIS C: (NOTE) (test code = 98657) ACUTE HEPATITIS [id number] 00:00:00 Test Item Value Reference Range Interpretation Comments HEPATITIS A IgM (test code = NON-REACTIVE 03302) HEPATITIS B CORE IgM (test code NON-REACTIVE = 4644) HEPATITIS B SURF AG (test code = NON-REACTIVE 8139) HEPATITIS C ANTIBODY (test code NON-REACTIVE = 6621) INTERPRETATION HEPATITIS A: (NOTE) (test code = 2552) INTERPRETATION HEPATITIS B: (NOTE) (test code = 59029) INTERPRETATION HEPATITIS C: (NOTE) (test code = 23473) [id number] 00:00:00 Test Item Value Reference Range Interpretation Comments AMYLASE (test code = 2205) 32 U/L [id number] 00:00:00 Test Item Value Reference Range Interpretation Comments AMYLASE (test code = 2205) 32 U/L [id number] 00:00:00 Test Item Value Reference Range Interpretation Comments LIPASE (test code = 2058) 22 U/L [id number] 00:00:00 Test Item Value Reference Range Interpretation Comments LIPASE (test code = 2058) 22 U/L [id number] 00:00:00 Test Item Value Reference Range Interpretation Comments LIPASE (test code = 2058) 22 U/L COMPREHENSIVE METABOLIC [id number] 00:00:00 Test Item Value Reference Range Interpretation Comments GLUCOSE (test code = 2217) 128 MG/DL BUN (test code = 2208) 26 MG/DL CREATININE (test code = 2214) 0.92 MG/DL eGFR AMER. (test code 81 ML/MIN/1.73 = 38578) eGFR NON- AMER. (test 70 ML/MIN/1.73 code = 34603) CALC BUN/CREAT (test code = 28 RATIO [...] code = 2219) 29 U/L ACUTE HEPATITIS [id number] 00:00:00 Test Item Value Reference Range Interpretation Comments HEPATITIS A IgM (test code = NON-REACTIVE 55156) HEPATITIS B CORE IgM (test code NON-REACTIVE = 4974) HEPATITIS B SURF AG (test code = NON-REACTIVE 3023) HEPATITIS C ANTIBODY (test code NON-REACTIVE = 1336) INTERPRETATION HEPATITIS A: (NOTE) (test code = 2552) INTERPRETATION HEPATITIS B: (NOTE) (test code = 74655) INTERPRETATION HEPATITIS C: (NOTE) (test code = 77950) [id number] 00:00:00 Test Item Value Reference Range Interpretation Comments AMYLASE (test code = 2205) 32 U/L [id number] 00:00:00 Test Item Value Reference Range Interpretation Comments LIPASE (test code = 2058) 22 U/L [id number] 00:00:00 Test Item Value Reference Range Interpretation Comments LIPASE (test code = 2058) 22 U/L COMPREHENSIVE METABOLIC [id number] 00:00:00 Test Item Value Reference Range Interpretation Comments GLUCOSE (test code = 2217) 128 MG/DL BUN (test code = 2208) 26 MG/DL CREATININE (test code = 2214) 0.92 MG/DL eGFR AMER. (test code 81 ML/MIN/1.73 = 59360) eGFR NON- AMER. (test 70 ML/MIN/1.73 code = 82163) CALC BUN/CREAT (test code = 28 RATIO [...] code = 2219) 29 U/L COMPREHENSIVE METABOLIC [id number] 00:00:00 Test Item Value Reference Range Interpretation Comments GLUCOSE (test code = 2217) 128 MG/DL BUN (test code = 2208) 26 MG/DL CREATININE (test code = 2214) 0.92 MG/DL eGFR AMER. (test code 81 ML/MIN/1.73 = 37100) eGFR NON- AMER. (test 70 ML/MIN/1.73 code = 56000) CALC BUN/CREAT (test code = 28 RATIO [...] code = 2219) 29 U/L ACUTE HEPATITIS [id number] 00:00:00 Test Item Value Reference Range Interpretation Comments HEPATITIS A IgM (test code = NON-REACTIVE 31537) HEPATITIS B CORE IgM (test code NON-REACTIVE = 4868) HEPATITIS B SURF AG (test code = NON-REACTIVE 8172) HEPATITIS C ANTIBODY (test code NON-REACTIVE = 5716) INTERPRETATION HEPATITIS A: (NOTE) (test code = 2552) INTERPRETATION HEPATITIS B: (NOTE) (test code = 56332) INTERPRETATION HEPATITIS C: (NOTE) (test code = 65338) ACUTE HEPATITIS [id number] 00:00:00 Test Item Value Reference Range Interpretation Comments HEPATITIS A IgM (test code = NON-REACTIVE 31128) HEPATITIS B CORE IgM (test code NON-REACTIVE = 4644) HEPATITIS B SURF AG (test code = NON-REACTIVE 2639) HEPATITIS C ANTIBODY (test code NON-REACTIVE = 4611) INTERPRETATION HEPATITIS A: (NOTE) (test code = 2552) INTERPRETATION HEPATITIS B: (NOTE) (test code = 86237) INTERPRETATION HEPATITIS C: (NOTE) (test code = 34709) [id number] 00:00:00 Test Item Value Reference Range Interpretation Comments AMYLASE (test code = 2205) 32 U/L [id number] 00:00:00 Test Item Value Reference Range Interpretation Comments AMYLASE (test code = 2205) 32 U/L [id number] 00:00:00 Test Item Value Reference Range Interpretation Comments LIPASE (test code = 2058) 22 U/L [id number] 00:00:00 Test Item Value Reference Range Interpretation Comments LIPASE (test code = 2058) 22 U/L [id number] 00:00:00 Test Item Value Reference Range Interpretation Comments LIPASE (test code = 2058) 22 U/L [id number] 00:00:00 Test Item Value Reference Range Interpretation Comments TSH, THIRD GENERATION (test code 4.890 UIU/ML = 2821) [id number] 00:00:00 Test Item Value Reference Range Interpretation Comments TSH, THIRD GENERATION (test code 4.890 UIU/ML = 2821) [id number] 00:00:00 Test Item Value Reference Range Interpretation Comments TSH, THIRD GENERATION (test code 4.890 UIU/ML = 2821) COMPREHENSIVE METABOLIC [id number] 00:00:00 Test Item Value Reference Range Interpretation Comments GLUCOSE (test code = 2217) 121 MG/DL BUN (test code = 2208) 40 MG/DL CREATININE (test code = 2214) 1.48 MG/DL eGFR AMER. (test code 45 ML/MIN/1.73 = 38266) eGFR NON- AMER. (test 39 ML/MIN/1.73 code = 85904) CALC BUN/CREAT (test code = 27 RATIO [...] code = 2219) 20 U/L COMPREHENSIVE METABOLIC [id number] 00:00:00 Test Item Value Reference Range Interpretation Comments GLUCOSE (test code = 2217) 121 MG/DL BUN (test code = 2208) 40 MG/DL CREATININE (test code = 2214) 1.48 MG/DL eGFR AMER. (test code 45 ML/MIN/1.73 = 26202) eGFR NON- AMER. (test 39 ML/MIN/1.73 code = 60101) CALC BUN/CREAT (test code = 27 RATIO [...] ALT (test code = 2219) 20 U/L [id number] 00:00:00 Test Item Value Reference Range Interpretation Comments TSH, THIRD GENERATION (test code 4.890 UIU/ML = 2821) [id number] 00:00:00 Test Item Value Reference Range Interpretation Comments TSH, THIRD GENERATION (test code 4.890 UIU/ML = 2821) [id number] 00:00:00 Test Item Value Reference Range Interpretation Comments TSH, THIRD GENERATION (test code 4.890 UIU/ML = 2821) COMPREHENSIVE METABOLIC [id number] 00:00:00 Test Item Value Reference Range Interpretation Comments GLUCOSE (test code = 2217) 121 MG/DL BUN (test code = 2208) 40 MG/DL CREATININE (test code = 2214) 1.48 MG/DL eGFR AMER. (test code 45 ML/MIN/1.73 = 84277) eGFR NON- AMER. (test 39 ML/MIN/1.73 code = 03310) CALC BUN/CREAT (test code = 27 RATIO [...] code = 2219) 20 U/L COMPREHENSIVE METABOLIC [id number] 00:00:00 Test Item Value Reference Range Interpretation Comments GLUCOSE (test code = 2217) 121 MG/DL BUN (test code = 2208) 40 MG/DL CREATININE (test code = 2214) 1.48 MG/DL eGFR AMER. (test code 45 ML/MIN/1.73 = 45092) eGFR NON- AMER. (test 39 ML/MIN/1.73 code = 56422) CALC BUN/CREAT (test code = 27 RATIO [...] ALT (test code = 2219) 20 U/L [id number] 00:00:00 Test Item Value Reference Range Interpretation Comments TSH, THIRD GENERATION (test code 4.890 UIU/ML = 2821) [id number] 00:00:00 Test Item Value Reference Range Interpretation Comments TSH, THIRD GENERATION (test code 4.890 UIU/ML = 2821) COMPREHENSIVE METABOLIC [id number] 00:00:00 Test Item Value Reference Range Interpretation Comments GLUCOSE (test code = 2217) 121 MG/DL BUN (test code = 2208) 40 MG/DL CREATININE (test code = 2214) 1.48 MG/DL eGFR AMER. (test code 45 ML/MIN/1.73 = 27819) eGFR NON- AMER. (test 39 ML/MIN/1.73 code = 35900) CALC BUN/CREAT (test code = 27 RATIO [...] ALT (test code = 2219) 20 U/L [id number] 00:00:00 Test Item Value Reference Range Interpretation Comments TSH, THIRD GENERATION (test code 4.890 UIU/ML = 2821) [id number] 00:00:00 Test Item Value Reference Range Interpretation Comments TSH, THIRD GENERATION (test code 4.890 UIU/ML = 2821) [id number] 00:00:00 Test Item Value Reference Range Interpretation Comments TSH, THIRD GENERATION (test code 4.890 UIU/ML = 2821) COMPREHENSIVE METABOLIC [id number] 00:00:00 Test Item Value Reference Range Interpretation Comments GLUCOSE (test code = 2217) 121 MG/DL BUN (test code = 2208) 40 MG/DL CREATININE (test code = 2214) 1.48 MG/DL eGFR AMER. (test code 45 ML/MIN/1.73 = 03217) eGFR NON- AMER. (test 39 ML/MIN/1.73 code = 14423) CALC BUN/CREAT (test code = 27 RATIO [...] code = 2219) 20 U/L COMPREHENSIVE METABOLIC [id number] 00:00:00 Test Item Value Reference Range Interpretation Comments GLUCOSE (test code = 2217) 121 MG/DL BUN (test code = 2208) 40 MG/DL CREATININE (test code = 2214) 1.48 MG/DL eGFR AMER. (test code 45 ML/MIN/1.73 = 93841) eGFR NON- AMER. (test 39 ML/MIN/1.73 code = 29524) CALC BUN/CREAT (test code = 27 RATIO [...] (test code = 2219) 20 U/L LIPID [id number] 00:00:00 Test Item Value Reference Range Interpretation Comments CHOLESTEROL (test code = 2210) 261 MG/DL TRIGLYCERIDES (test code = 2232) 165 MG/DL HDL CHOLESTEROL (test code = 2220) 58 MG/DL CALC LDL CHOL (test code = 2237) 170 MG/DL RISK RATIO LDL/HDL (test code = 2.93 RATIO 2238) LIPID [id number] 00:00:00 Test Item Value Reference Range Interpretation Comments CHOLESTEROL (test code = 2210) 261 MG/DL TRIGLYCERIDES (test code = 2232) 165 MG/DL HDL CHOLESTEROL (test code = 2220) 58 MG/DL CALC LDL CHOL (test code = 2237) 170 MG/DL RISK RATIO LDL/HDL (test code = 2.93 RATIO 2238) CBC W/AUTO [id number] 00:00:00 Test Item Value Reference Range Interpretation [...] code = 1015) 378 K/UL CBC W/AUTO [id number] 00:00:00 Test Item Value Reference Range Interpretation [...] code = 1015) 378 K/UL CBC W/AUTO [id number] 00:00:00 Test Item Value Reference Range Interpretation [...] (test code = 1015) 378 K/UL HEMOGLOBIN [id number] 00:00:00 Test Item Value Reference Range Interpretation Comments HEMOGLOBIN A1c (test code = 96134) 6.4 % HEMOGLOBIN [id number] 00:00:00 Test Item Value Reference Range Interpretation Comments HEMOGLOBIN A1c (test code = 45219) 6.4 % HEMOGLOBIN [id number] 00:00:00 Test Item Value Reference Range Interpretation Comments HEMOGLOBIN A1c (test code = 54526) 6.4 % [id number] 00:00:00 Test Item Value Reference Range Interpretation Comments TSH (test code = 2821) 5.290 UIU/ML [id number] 00:00:00 Test Item Value Reference Range Interpretation Comments TSH (test code = 2821) 5.290 UIU/ML [id number] 00:00:00 Test Item Value Reference Range Interpretation Comments TSH (test code = 2821) 5.290 UIU/ML LIPID [id number] 00:00:00 Test Item Value Reference Range Interpretation Comments CHOLESTEROL (test code = 2210) 261 MG/DL TRIGLYCERIDES (test code = 2232) 165 MG/DL HDL CHOLESTEROL (test code = 2220) 58 MG/DL CALC LDL CHOL (test code = 2237) 170 MG/DL RISK RATIO LDL/HDL (test code = 2.93 RATIO 2238) LIPID [id number] 00:00:00 Test Item Value Reference Range Interpretation Comments CHOLESTEROL (test code = 2210) 261 MG/DL TRIGLYCERIDES (test code = 2232) 165 MG/DL HDL CHOLESTEROL (test code = 2220) 58 MG/DL CALC LDL CHOL (test code = 2237) 170 MG/DL RISK RATIO LDL/HDL (test code = 2.93 RATIO 2238) CBC W/AUTO [id number] 00:00:00 Test Item Value Reference Range Interpretation [...] code = 1015) 378 K/UL CBC W/AUTO [id number] 00:00:00 Test Item Value Reference Range Interpretation [...] code = 1015) 378 K/UL CBC W/AUTO [id number] 00:00:00 Test Item Value Reference Range Interpretation [...] (test code = 1015) 378 K/UL HEMOGLOBIN [id number] 00:00:00 Test Item Value Reference Range Interpretation Comments HEMOGLOBIN A1c (test code = 88624) 6.4 % HEMOGLOBIN [id number] 00:00:00 Test Item Value Reference Range Interpretation Comments HEMOGLOBIN A1c (test code = 99110) 6.4 % HEMOGLOBIN [id number] 00:00:00 Test Item Value Reference Range Interpretation Comments HEMOGLOBIN A1c (test code = 88269) 6.4 % [id number] 00:00:00 Test Item Value Reference Range Interpretation Comments TSH (test code = 2821) 5.290 UIU/ML [id number] 00:00:00 Test Item Value Reference Range Interpretation Comments TSH (test code = 2821) 5.290 UIU/ML [id number] 00:00:00 Test Item Value Reference Range Interpretation Comments TSH (test code = 2821) 5.290 UIU/ML LIPID [id number] 00:00:00 Test Item Value Reference Range Interpretation Comments CHOLESTEROL (test code = 2210) 261 MG/DL TRIGLYCERIDES (test code = 2232) 165 MG/DL HDL CHOLESTEROL (test code = 2220) 58 MG/DL CALC LDL CHOL (test code = 2237) 170 MG/DL RISK RATIO LDL/HDL (test code = 2.93 RATIO 2238) CBC W/AUTO [id number] 00:00:00 Test Item Value Reference Range Interpretation [...] code = 1015) 378 K/UL CBC W/AUTO [id number] 00:00:00 Test Item Value Reference Range Interpretation [...] (test code = 1015) 378 K/UL HEMOGLOBIN [id number] 00:00:00 Test Item Value Reference Range Interpretation Comments HEMOGLOBIN A1c (test code = 41943) 6.4 % HEMOGLOBIN [id number] 00:00:00 Test Item Value Reference Range Interpretation Comments HEMOGLOBIN A1c (test code = 08398) 6.4 % [id number] 00:00:00 Test Item Value Reference Range Interpretation Comments TSH (test code = 2821) 5.290 UIU/ML [id number] 00:00:00 Test Item Value Reference Range Interpretation Comments TSH (test code = 2821) 5.290 UIU/ML LIPID [id number] 00:00:00 Test Item Value Reference Range Interpretation Comments CHOLESTEROL (test code = 2210) 261 MG/DL TRIGLYCERIDES (test code = 2232) 165 MG/DL HDL CHOLESTEROL (test code = 2220) 58 MG/DL CALC LDL CHOL (test code = 2237) 170 MG/DL RISK RATIO LDL/HDL (test code = 2.93 RATIO 2238) LIPID [id number] 00:00:00 Test Item Value Reference Range Interpretation Comments CHOLESTEROL (test code = 2210) 261 MG/DL TRIGLYCERIDES (test code = 2232) 165 MG/DL HDL CHOLESTEROL (test code = 2220) 58 MG/DL CALC LDL CHOL (test code = 2237) 170 MG/DL RISK RATIO LDL/HDL (test code = 2.93 RATIO 2238) CBC W/AUTO [id number] 00:00:00 Test Item Value Reference Range Interpretation [...] code = 1015) 378 K/UL CBC W/AUTO [id number] 00:00:00 Test Item Value Reference Range Interpretation [...] code = 1015) 378 K/UL CBC W/AUTO [id number] 00:00:00 Test Item Value Reference Range Interpretation [...] (test code = 1015) 378 K/UL HEMOGLOBIN [id number] 00:00:00 Test Item Value Reference Range Interpretation Comments HEMOGLOBIN A1c (test code = 39447) 6.4 % HEMOGLOBIN [id number] 00:00:00 Test Item Value Reference Range Interpretation Comments HEMOGLOBIN A1c (test code = 73719) 6.4 % HEMOGLOBIN [id number] 00:00:00 Test Item Value Reference Range Interpretation Comments HEMOGLOBIN A1c (test code = 78749) 6.4 % [id number] 00:00:00 Test Item Value Reference Range Interpretation Comments TSH (test code = 2821) 5.290 UIU/ML [id number] 00:00:00 Test Item Value Reference Range Interpretation Comments TSH (test code = 2821) 5.290 UIU/ML [id number] 00:00:00 Test Item Value Reference Range Interpretation [...] code = 2821) 1.030 UIU/ML COMPREHENSIVE METABOLIC [id number] 00:00:00 Test Item Value Reference Range Interpretation Comments GLUCOSE (test code = 2217) 106 MG/DL BUN (test code = 2208) 23 MG/DL CREATININE (test code = 2214) 0.66 MG/DL eGFR AMER. (test code 114 ML/MIN/1.73 = 88642) eGFR NON- AMER. (test 99 ML/MIN/1.73 code = 07239) CALC BUN/CREAT (test code = 35 RATIO [...] code = 2219) 31 U/L COMPREHENSIVE METABOLIC [id number] 00:00:00 Test Item Value Reference Range Interpretation Comments GLUCOSE (test code = 2217) 106 MG/DL BUN (test code = 2208) 23 MG/DL CREATININE (test code = 2214) 0.66 MG/DL eGFR AMER. (test code 114 ML/MIN/1.73 = 29057) eGFR NON- AMER. (test 99 ML/MIN/1.73 code = 70916) CALC BUN/CREAT (test code = 35 RATIO [...] code = 2821) 0.335 UIU/ML COMPREHENSIVE METABOLIC [id number] 00:00:00 Test Item Value Reference Range Interpretation Comments GLUCOSE (test code = 2217) 106 MG/DL BUN (test code = 2208) 23 MG/DL CREATININE (test code = 2214) 0.66 MG/DL eGFR AMER. (test code 114 ML/MIN/1.73 = 98960) eGFR NON- AMER. (test 99 ML/MIN/1.73 code = 98107) CALC BUN/CREAT (test code = 35 RATIO [...] code = 2219) 31 U/L COMPREHENSIVE METABOLIC [id number] 00:00:00 Test Item Value Reference Range Interpretation Comments GLUCOSE (test code = 2217) 106 MG/DL BUN (test code = 2208) 23 MG/DL CREATININE (test code = 2214) 0.66 MG/DL eGFR AMER. (test code 114 ML/MIN/1.73 = 46368) eGFR NON- AMER. (test 99 ML/MIN/1.73 code = 25682) CALC BUN/CREAT (test code = 35 RATIO [...] code = 2821) 0.335 UIU/ML COMPREHENSIVE METABOLIC [id number] 00:00:00 Test Item Value Reference Range Interpretation Comments GLUCOSE (test code = 2217) 106 MG/DL BUN (test code = 2208) 23 MG/DL CREATININE (test code = 2214) 0.66 MG/DL eGFR AMER. (test code 114 ML/MIN/1.73 = 87337) eGFR NON- AMER. (test 99 ML/MIN/1.73 code = 99371) CALC BUN/CREAT (test code = 35 RATIO [...] code = 2821) 0.335 UIU/ML COMPREHENSIVE METABOLIC [id number] 00:00:00 Test Item Value Reference Range Interpretation Comments GLUCOSE (test code = 2217) 106 MG/DL BUN (test code = 2208) 23 MG/DL CREATININE (test code = 2214) 0.66 MG/DL eGFR AMER. (test code 114 ML/MIN/1.73 = 51506) eGFR NON- AMER. (test 99 ML/MIN/1.73 code = 34614) CALC BUN/CREAT (test code = 35 RATIO [...] code = 2219) 31 U/L COMPREHENSIVE METABOLIC [id number] 00:00:00 Test Item Value Reference Range Interpretation Comments GLUCOSE (test code = 2217) 106 MG/DL BUN (test code = 2208) 23 MG/DL CREATININE (test code = 2214) 0.66 MG/DL eGFR AMER. (test code 114 ML/MIN/1.73 = 30870) eGFR NON- AMER. (test 99 ML/MIN/1.73 code = 32816) CALC BUN/CREAT (test code = 35 RATIO [...] code = 2821) 0.335 UIU/ML COMPREHENSIVE METABOLIC [id number] 00:00:00 Test Item Value Reference Range Interpretation Comments GLUCOSE (test code = 2217) 103 MG/DL BUN (test code = 2208) 15 MG/DL CREATININE (test code = 2214) 0.77 MG/DL eGFR AMER. (test code 101 ML/MIN/1.73 = 22691) eGFR NON- AMER. (test 87 ML/MIN/1.73 code = 80911) CALC BUN/CREAT (test code = 19 RATIO [...] code = 2219) 24 U/L COMPREHENSIVE METABOLIC [id number] 00:00:00 Test Item Value Reference Range Interpretation Comments GLUCOSE (test code = 2217) 103 MG/DL BUN (test code = 2208) 15 MG/DL CREATININE (test code = 2214) 0.77 MG/DL eGFR AMER. (test code 101 ML/MIN/1.73 = 45407) eGFR NON- AMER. (test 87 ML/MIN/1.73 code = 60521) CALC BUN/CREAT (test code = 19 RATIO [...] code = 2821) 0.424 UIU/ML COMPREHENSIVE METABOLIC [id number] 00:00:00 Test Item Value Reference Range Interpretation Comments GLUCOSE (test code = 2217) 103 MG/DL BUN (test code = 2208) 15 MG/DL CREATININE (test code = 2214) 0.77 MG/DL eGFR AMER. (test code 101 ML/MIN/1.73 = 97069) eGFR NON- AMER. (test 87 ML/MIN/1.73 code = 96473) CALC BUN/CREAT (test code = 19 RATIO [...] code = 2219) 24 U/L COMPREHENSIVE METABOLIC [id number] 00:00:00 Test Item Value Reference Range Interpretation Comments GLUCOSE (test code = 2217) 103 MG/DL BUN (test code = 2208) 15 MG/DL CREATININE (test code = 2214) 0.77 MG/DL eGFR AMER. (test code 101 ML/MIN/1.73 = 52741) eGFR NON- AMER. (test 87 ML/MIN/1.73 code = 73977) CALC BUN/CREAT (test code = 19 RATIO [...] code = 2821) 0.424 UIU/ML COMPREHENSIVE METABOLIC [id number] 00:00:00 Test Item Value Reference Range Interpretation Comments GLUCOSE (test code = 2217) 103 MG/DL BUN (test code = 2208) 15 MG/DL CREATININE (test code = 2214) 0.77 MG/DL eGFR AMER. (test code 101 ML/MIN/1.73 = 98121) eGFR NON- AMER. (test 87 ML/MIN/1.73 code = 14826) CALC BUN/CREAT (test code = 19 RATIO [...] code = 2821) 0.424 UIU/ML COMPREHENSIVE METABOLIC [id number] 00:00:00 Test Item Value Reference Range Interpretation Comments GLUCOSE (test code = 2217) 103 MG/DL BUN (test code = 2208) 15 MG/DL CREATININE (test code = 2214) 0.77 MG/DL eGFR AMER. (test code 101 ML/MIN/1.73 = 89826) eGFR NON- AMER. (test 87 ML/MIN/1.73 code = 71628) CALC BUN/CREAT (test code = 19 RATIO [...] code = 2219) 24 U/L COMPREHENSIVE METABOLIC [id number] 00:00:00 Test Item Value Reference Range Interpretation Comments GLUCOSE (test code = 2217) 103 MG/DL BUN (test code = 2208) 15 MG/DL CREATININE (test code = 2214) 0.77 MG/DL eGFR AMER. (test code 101 ML/MIN/1.73 = 82359) eGFR NON- AMER. (test 87 ML/MIN/1.73 code = 25521) CALC BUN/CREAT (test code = 19 RATIO [...] (test code = 2821) 0.424 UIU/ML CULTURE, [id number] 00:00:00 Test Item Value Reference Range Interpretation Comments CULTURE, URINE (test SPECIMEN NUMBER: code = 76386) [id number] CULTURE, [id number] 00:00:00 Test Item Value Reference Range Interpretation Comments CULTURE, URINE (test SPECIMEN NUMBER: code = 86905) [id number] CULTURE, [id number] 00:00:00 Test Item Value Reference Range Interpretation Comments CULTURE, URINE (test SPECIMEN NUMBER: code = 99287) [id number] CULTURE, [id number] 00:00:00 Test Item Value Reference Range Interpretation Comments CULTURE, URINE (test SPECIMEN NUMBER: code = 78317) [id number] CULTURE, [id number] 00:00:00 Test Item Value Reference Range Interpretation Comments CULTURE, URINE (test SPECIMEN NUMBER: code = 81505) [id number] CULTURE, [id number] 00:00:00 Test Item Value Reference Range Interpretation Comments CULTURE, URINE (test SPECIMEN NUMBER: code = 20946) [id number] CULTURE, [id number] 00:00:00 Test Item Value Reference Range Interpretation Comments CULTURE, URINE (test SPECIMEN NUMBER: code = 48592) [id number] CULTURE, [id number] 00:00:00 Test Item Value Reference Range Interpretation Comments CULTURE, URINE (test SPECIMEN NUMBER: code = 91224) [id number] CULTURE, [id number] 00:00:00 Test Item Value Reference Range Interpretation Comments CULTURE, URINE (test SPECIMEN NUMBER: code = 54389) [id number] CULTURE, [id number] 00:00:00 Test Item Value Reference Range Interpretation Comments CULTURE, URINE (test SPECIMEN NUMBER: code = 74548) [id number] CULTURE, [id number] 00:00:00 Test Item Value Reference Range Interpretation Comments CULTURE, URINE (test SPECIMEN NUMBER: code = 03502) [id number] CULTURE, [id number] 00:00:00 Test Item Value Reference Range Interpretation Comments CULTURE, URINE (test SPECIMEN NUMBER: code = 68160) [id number] CULTURE, [id number] 00:00:00 Test Item Value Reference Range Interpretation Comments CULTURE, URINE (test SPECIMEN NUMBER: code = 77118) [id number] CULTURE, [id number] 00:00:00 Test Item Value Reference Range Interpretation Comments CULTURE, URINE (test SPECIMEN NUMBER: code = 31747) [id number]
[2022-08-08] MEDS ORDERED: ONDANSETRON 4 MG/2 ML VIAL ONE (12:36)
[2022-08-08] MEDS ORDERED: Ringers Lactate 1,000 ML IV ONE (12:36)
[2022-08-08] MEDS ORDERED: MORPHINE 4 MG/ML SYR ONE (13:44)
--- NOTE | 2022-08-08 14:14 | ER ---
Nurse's Notes [facility] Name: Jaimie Amanda Age: 61 yrs Sex: Female : 1960 Arrival Date: 08/08/2022 Time: 10:58 Bed 19 Private MD: Diagnosis: Chronic Abdominal Pain Presentation: 08/08 11:10 Chief complaint: Patient states: N/V and abd pain x "a couple days". Coronavirus ss screen: Client denies travel out of the [place] in the last 14 days. Ebola Screen: Patient denies exposure to infectious person. Patient denies travel to an Ebola-affected area in the 21 days before illness onset. Initial Sepsis Screen: Does the patient meet any 2 criteria? No. Patient's initial sepsis screen is negative. Does the patient have a suspected source of infection? No. Patient's initial sepsis screen is negative. Risk Assessment: Do you want to hurt yourself or someone else? Patient reports no desire to harm self or others. Onset of symptoms was August 06, 2022. 11:10 Method Of Arrival: Ambulatory ss 11:10 Acuity: ZHEN 3 ss Historical: - Allergies: 11:11 hydrochlorothiazide; ss - PMHx: 11:11 Anxiety; Chronic Abdominal Pain; Hypertensive disorder; Hypothyroidism; low NA; NIDDM; ss - PSHx: 11:11 Thyroidectomy; ss - Immunization history:: Client reports receiving the 2nd dose of the Covid vaccine. - Social history:: Smoking status: Patient reports the use of cigarette tobacco products, smokes one pack cigarettes per day. Screenin:02 [facility] ED Fall Risk Assessment (Adult) History of falling in the last 3 months, db including since admission No falls in past 3 months (0 pts) Confusion or Disorientation No (0 pts) Intoxicated or Sedated No (0 pts) Impaired Gait No (0 pts) Mobility Assist Device Used No (0 pt) Altered Elimination No (0 pt) Score/Fall Risk Level 0 - 2 = Low Risk Oriented to surroundings, Educated pt \\T\\ family on fall prevention, incl call for assistance when getting out of bed. Abuse screen: Denies threats or abuse. Denies injuries from another. Nutritional screening: No deficits noted. Tuberculosis screening: No symptoms or risk factors identified. Assessment: 13:01 Reassessment: Patient appears in no apparent distress at this time. Patient and/or db family updated on plan of care and expected duration. Pain level reassessed. Patient is alert, oriented x 3, equal unlabored respirations, skin warm/dry/pink. nausea and abdominal pain. General: Appears in no apparent distress. comfortable, Behavior is calm, cooperative. Pain: Complains of pain in abdomen. GI: Abdomen is flat, Bowel sounds present X 4 quads. Abd is soft. 14:10 Reassessment: patient states "I am ready to go". Will notified Mickail provider. db 14:22 Reassessment: Patient appears in no apparent distress at this time. Patient and/or db family updated on plan of care and expected duration. Pain level reassessed. Patient is alert, oriented x 3, equal unlabored respirations, skin warm/dry/pink. Patient states feeling better. Patient states symptoms have improved. Vital Signs: 11:10 BP 171 / 86; Pulse 104; Resp 16; Temp 98.3(TE); Pulse Ox 98% on R/A; Weight 70.31 kg; ss Height 5 ft. 7 in. ; Pain 9/10; 13:00 BP 167 / 95; Pulse 83; Resp 16; Pulse Ox 95% on R/A; db 14:00 BP 176 / 105; Pulse 87; Resp 16; Pulse Ox 100% on R/A; db 11:10 Body Mass Index 24.28 (70.31 kg, 170.18 cm) 11:10 Pain Scale: Adult ss ED Course: 10:59 Patient arrived in ED. rg4 11:08 [facility] 11:08 Blake Aguirre MD is Attending Physician. [facility] 11:11 Triage completed. ss 11:11 Arm band placed on left wrist. ss 12:25 Stephie Collazo, CATY is Primary Nurse. db 12:38 Missed attempt(s): 22 gauge in right antecubital area. Bleeding controlled, band aid db applied, catheter tip intact. 13:01 Missed attempt(s): 22 gauge in right wrist. Bleeding controlled, band aid applied, db catheter tip intact. 13:01 Missed attempt(s): 22 gauge in right forearm. Bleeding controlled, band aid applied, mb9 catheter tip intact. 13:01 Missed attempt(s): 22 gauge in left antecubital area. Bleeding controlled, band aid mb9 applied, catheter tip intact. 14:22 Patient has correct armband on for positive identification. Placed in gown. Bed in low db position. Call light in reach. Side rails up X 1. 14:22 Pulse ox on. NIBP on. db 14:22 No provider procedures requiring assistance completed. IV discontinued, intact, db bleeding controlled, No redness/swelling at site. Administered Medications: 13:18 Drug: Lactated Ringers Solution IV 1000 ml Route: IV; Rate: 1000 bolus; Site: left nj1 antecubital; 14:23 Follow up: Response: No adverse reaction; IV Status: Completed infusion; IV Intake: db 1000ml 13:18 Drug: Ondansetron IVP 4 mg Route: IVP; Site: left antecubital; nj1 14:23 Follow up: Response: No adverse reaction db 13:36 Drug: morphine IVP or IV 4 mg Route: IVP; Infused Over: 4 mins; Site: left antecubital; db 14:23 Follow up: Response: No adverse reaction db 14:23 Not Given (Patient Refused): Lactated Ringers Solution IV 1000 ml IV at 1000 bolus db continuous Medication: 14:22 VIS not applicable for this client. db Intake: 14:23 IV: 1000ml; Total: 1000ml. db Outcome: 14:14 Discharge ordered by MD. canela 14:22 Discharged to home ambulatory. db 14:22 Condition: stable 14:22 Discharge instructions given to patient, Instructed on discharge instructions, follow up and referral plans. 14:23 Patient left the ED. db Signatures: René Brown PA PA jmm Smirch, Shelby, RN RN ss Garcia, Rubi rg4 Stephie Collazo RN RN Radha Chan RN RN mb9 Berna Lomax RN RN nj1 Corrections: (The following items were deleted from the chart) 13:18 13:17 Inserted saline lock: 22 gauge in left antecubital area, using aseptic technique. db Blood collected. db
--- NOTE | 2022-08-08 14:14 | EDPHYS ---
Physician Documentation [facility] Name: Jaimie Amanda Age: 61 yrs Sex: Female : 1960 Arrival Date: 08/08/2022 Time: 10:58 Bed 19 Private MD: ED Physician Blake Aguirre HPI: 08/08 11:17 This 61 yrs old Female presents to ER via Ambulatory with complaints of Abdominal Pain. jmm 11:17 The patient presents with abdominal pain. Onset: The symptoms/episode began/occurred jmm gradually, today. Associated signs and symptoms: Pertinent positives: nausea and vomiting. NauseaIs a 61-year-old female with history of chronic abdominal pain, hypertension the presents emerged part with complaints of abdominal pain and vomiting. States this is consistent with previous episodes. Historical: - Allergies: 11:11 hydrochlorothiazide; ss - PMHx: 11:11 Anxiety; Chronic Abdominal Pain; Hypertensive disorder; Hypothyroidism; low NA; NIDDM; ss - PSHx: 11:11 Thyroidectomy; ss - Immunization history:: Client reports receiving the 2nd dose of the Covid vaccine. - Social history:: Smoking status: Patient reports the use of cigarette tobacco products, smokes one pack cigarettes per day. ROS: 11:17 Constitutional: Negative for fever, chills, and weight loss, Cardiovascular: Negative jmm for chest pain, palpitations, and edema, Respiratory: Negative for shortness of breath, cough, wheezing, and pleuritic chest pain. 11:17 Abdomen/GI: Positive for abdominal pain, nausea and vomiting. 11:17 All other systems are negative. Exam: 11:17 Constitutional: This is a well developed, well nourished patient who is awake, alert, jmm and in no acute distress. Head/Face: atraumatic. Eyes: EOMI, no conjunctival erythema appreciated ENT: Moist Mucus Membranes Neck: Trachea midline, Supple Chest/axilla: Normal chest wall appearance and motion. Cardiovascular: Regular rate and rhythm. No edema appreciated Respiratory: Normal respirations, no respiratory distress appreciated 11:17 Back: Normal ROM Skin: General appearance color normal MS/ Extremity: Moves all extremities, no obvious deformities appreciated, no edema noted to the lower extremities Neuro: Awake and alert Psych: Behavior is normal, Mood is normal, Patient is cooperative and pleasant 11:17 Abdomen/GI: Inspection: abdomen appears normal, Palpation: soft, in all quadrants. Vital Signs: 11:10 BP 171 / 86; Pulse 104; Resp 16; Temp 98.3(TE); Pulse Ox 98% on R/A; Weight 70.31 kg; ss Height 5 ft. 7 in. ; Pain 9/10; 13:00 BP 167 / 95; Pulse 83; Resp 16; Pulse Ox 95% on R/A; db 14:00 BP 176 / 105; Pulse 87; Resp 16; Pulse Ox 100% on R/A; db 11:10 Body Mass Index 24.28 (70.31 kg, 170.18 cm) ss 11:10 Pain Scale: Adult ss MDM: 11:17 Patient medically screened. [facility] 11:17 Differential diagnosis: Mesenteric ischemia or infarction, non-specific abd pain, jmm pancreatitis, Peptic Ulcer Disease, Perf. Duodenal Ulcer, Perf. Gastric Ulcer, Pyelonephritis, Ureterolithiasis, urinary tract infection. Data reviewed: vital signs, nurses notes. ED course: Patient states feeling much better after IV fluids, antiemetics and analgesics. States that this pain is consistent with previous episodes. I do not currently suspect an acute intra-abdominal process. Patient will return to the ED if symptoms worsen.. 08/08 11:17 Order name: Saline Lock; Complete Time: 13:17 [facility] Administered Medications: 13:18 Drug: Lactated Ringers Solution IV 1000 ml Route: IV; Rate: 1000 bolus; Site: left nj1 antecubital; 14:23 Follow up: Response: No adverse reaction; IV Status: Completed infusion; IV Intake: db 1000ml 13:18 Drug: Ondansetron IVP 4 mg Route: IVP; Site: left antecubital; nj1 14:23 Follow up: Response: No adverse reaction db 13:36 Drug: morphine IVP or IV 4 mg Route: IVP; Infused Over: 4 mins; Site: left antecubital; db 14:23 Follow up: Response: No adverse reaction db 14:23 Not Given (Patient Refused): Lactated Ringers Solution IV 1000 ml IV at 1000 bolus db continuous Disposition Summary: 08/08/22 14:14 Discharge Ordered Location: Home [facility] Condition: Stable [facility] Diagnosis - Chronic Abdominal Pain [facility] Followup: [facility] - With: Private Physician - When: 2 - 3 days - Reason: Recheck today's complaints, Continuance of care, Re-evaluation by your physician Discharge Instructions: - Discharge Summary Sheet jmm - Abdominal Pain, Adult jmfamilia Forms: - Medication Reconciliation Form jmm - Thank You Letter [place] - Antibiotic Education [place] - Prescription Opioid Use [place] Signatures: René Brown PA PA jmm Smirch, Shelby, RN RN ss Stephie Collazo RN RN db Berna Lomax RN RN nj1
[2022-08-08 14:33] VITALS: TEMP 98.3
[2022-08-08 14:37] VITALS: BP 176/105; O2SAT 100
== END 2022-08-08 14:23 | disposition home or self-care (01) ==
LOC: ER 10:58
DX: R10.84 Generalized abdominal pain (principal); R11.2 Nausea with vomiting, unspecified; F17.210 Nicotine dependence, cigarettes, uncomplicated; Z88.8 Allergy status to other drugs, medicaments and biological substances
CPT/HCPCS: 96361; 96375; 96374; 99284; J2405; J7120

== ENCOUNTER 2022-08-26 16:08 | Emergency (ER) | payer OTHER ==
--- OUTSIDE RECORDS SUMMARY | 2022-08-26 16:20 | XMS REPORT | Continuity of Care Document ---
:1960 Author Organization [facility] t Address [address] [place] [address] [place] [id number] Care Team Providers Name Role Phone [facility]pless Primary Care Physician MATT SIMPSON Attending Clinician Unavailable MATT SIMPSON Attending Clinician Unavailable Doctor Unassigned, [place] Attending Clinician Unavailable WALLY KRISHNAMURTHY Attending Clinician Unavailable Natacha Brewster Attending Clinician Payers Payer Name Policy Type Policy Number Effective Date Expiration Date Sarina castelan [facility] [id number] 2017 00:00:00 PLUS Problems This patient has [...] ers OPHEN INGREDI 07-27 ity of 00:00: [place] [facility] Hmg-Coa Propensi Inactiv Reductas [...] Cente r Alcohol intake 2016-05-01 2016-05-01 Current [facility] 00:00:00 00:00:00 non-drinker of Medical nter alcohol (finding) Sex Assigned At [address] [facility] 00:00:00 00:00:00 [facility] Smoking Status Start Date Stop Date Source Smokes tobacco daily 2016-05-01 00:00:00 [facility] Medications Ordered Filled Start Stop [...] capsule 00:00: 00 OXcarbazepi 2017-0 Yes 600mg Q.[id number] Take [address] [facility] [address] ne 2-23 [id number] mg by Yasir (TRILEPTAL) 10:23: 3D mouth 3 Med ical 600 [facility] 59 (three) Center tablet times daily. PARoxetine 2017-0 Yes 40mg QD Take [address] (PAXIL) 40 2-23 [facility] 10:23: nightly. [address] OXcarbazepi 2017-0 Yes 600mg Q.[id number] Take [address] [facility] [address] ne 2-23 [id number] [facility] (TRILE[facility]AL) 10:23: 3D mouth 3 Med ical 600 [facility] 59 (three) Center tablet times daily. PARoxetine 2017-0 Yes 40mg QD Take [address] (PAXIL) 40 2-23 [facility] 10:23: nightly. [address] OXcarbazepi 2017-0 Yes 600mg Q.[id number] Take [address] ne 2-23 [id number] [facility] by [facility] (TRILEPTAL) 10:23: 3D mouth 3 Med ical 600 [facility] 59 (three) Center tablet times daily. PARoxetine 2017-0 Yes 40mg QD Take [address] (PAXIL) 40 2-23 [facility] 10:23: nightly. [address] OXcarbazepi 2017-0 Yes 600mg Q.[id number] Take [address] [address] ne 2-23 [id number] [facility] by [facility] (TRILEPTAL) 10:23: 3D mouth 3 Med ical 600 [facility] 59 (three) Center tablet times daily. PARoxetine 2017-0 Yes 40mg QD Take [address] (PAXIL) 40 2-23 [facility] 10:23: nightly. [address] OXcarbazepi 2017-0 Yes 600mg Q.[id number] Take [address] [facility] [address] ne 2-23 [id number] [facility] by [facility] (TRILEPTAL) 10:23: 3D mouth 3 Med ical 600 MG 59 (three) Center tablet times daily. PARoxetine 2017-0 Yes 40mg QD Take [address] (PAXIL) 40 2-23 [facility] 10:23: nightly. [address] OXcarbazepi 2017-0 Yes 600mg Q.[id number] Take [address] ne 2-23 [id number] mg by [facility] (TRILEPTAL) 10:23: 3D mouth 3 Med ical 600 MG 59 (three) Center tablet times daily. OXcarbazepi 2017-0 Yes 600mg Q.[id number] Take [address] [facility] [address] ne 2-23 [id number] [facility] by [facility] (TRILEPTAL) 10:23: 3D mouth 3 Med ical 600 MG 59 (three) Center tablet times daily. PARoxetine 2017-0 Yes 40mg QD Take [address] (PAXIL) 40 2-23 [facility] tablet 10:23: nightly. [address] OXcarbazepi 2017-0 Yes 600mg Q.[id number] Take [address] ne 2-23 [id number] mg by [facility] (TRILEPTAL) 10:23: 3D mouth 3 Med ical 600 MG 59 (three) Center tablet times daily. PARoxetine 2017-0 Yes 40mg QD Take [address] (PAXIL) 40 2-23 [facility] tablet 10:23: nightly. [address] OXcarbazepi 2017-0 Yes 600mg Q.[id number] Take [address] [facility] [address] ne 2-23 [id number] mg by [facility] (TRILEPTAL) 10:23: 3D mouth 3 Med ical 600 MG 59 (three) Center tablet times daily. PARoxetine 2017-0 Yes 40mg QD Take [address] (PAXIL) 40 2-23 [facility] tablet 10:23: nightly. [address] PARoxetine 2017-0 Yes 40mg QD Take [address] (PAXIL) 40 2-23 [facility] tablet 10:23: nightly. [address] OXcarbazepi 2017-0 Yes 600mg Q.[id number] Take [address] ne 2-23 [id number] [facility] by [facility] (TRILEPTAL) 10:23: 3D mouth 3 Med ical 600 MG 59 (three) Center tablet times daily. PARoxetine 2017-0 Yes 40mg QD Take [address] (PAXIL) 40 2-23 [facility] tablet 10:23: nightly. [address] OXcarbazepi 2017-0 Yes 600mg Q.[id number] Take [address] ne 2-23 [id number] mg by [facility] (TRILEPTAL) 10:23: 3D mouth 3 Med ical 600 MG 59 (three) Center tablet times daily. PARoxetine 2017-0 Yes 40mg QD Take [address] (PAXIL) 40 2-23 [facility] tablet 10:23: nightly. [address] 2017-0 Yes 600mg Q.[id number] Take [address] ne 2-23 [id number] mg by [facility] (TRILEPTAL) 10:23: 3D mouth 3 Med ical 600 MG 59 (three) Center tablet times daily. PARoxetine 2017-0 Yes 40mg QD Take [address] (PAXIL) 40 2-23 [facility] tablet 10:23: nightly. [address] 2017-0 Yes 600mg Q.[id number] Take [address] ne 2-23 [id number] mg by [facility] (TRILEPTAL) 10:23: 3D mouth 3 Med ical 600 MG 59 (three) Center tablet times daily. PARoxetine 2017-0 Yes 40mg QD Take [address] (PAXIL) 40 2-23 [facility] tablet 10:23: nightly. [address] 2017-0 Yes 600mg Q.[id number] Take [address] ne 2-23 [id number] mg by [facility] (TRILEPTAL) 10:23: 3D mouth 3 Med ical 600 MG 59 (three) Center tablet times daily. PARoxetine 2017-0 Yes 40mg QD Take [address] (PAXIL) 40 2-23 [facility] tablet 10:23: nightly. [address] 2017-0 Yes 600mg Q.[id number] Take [address] ne 2-23 [id number] mg by [facility] (TRILEPTAL) 10:23: 3D mouth 3 Med ical 600 MG 59 (three) Center tablet times daily. PARoxetine 2017-0 Yes 40mg QD Take [address] (PAXIL) 40 2-23 by [facility] tablet 10:23: nightly. [address] OXcarbazepi 2017-0 Yes 600mg Q.[id number] Take [address] ne 2-23 [id number] mg by [facility] (TRILEPTAL) 10:23: 3D mouth 3 Med ical 600 MG 59 (three) Center tablet times daily. PARoxetine 2017-0 Yes 40mg QD Take [address] (PAXIL) 40 2-23 by [facility] tablet 10:23: nightly. [facility] [address] OXcarbazepi 2017-0 Yes 600mg Q.[id number] Take [address] ne 2-23 [id number] mg by [facility] (TRILEPTAL) 10:23: 3D mouth 3 Med ical 600 MG 59 (three) Center tablet times daily. PARoxetine 2017-0 Yes 40mg QD Take [address] (PAXIL) 40 2-23 by mouth [facility] tablet 10:23: nightly. [facility] [address] OXcarbazepi 2017-0 Yes 600mg Q.[id number] Take [address] ne 2-23 [id number] mg by [facility] (TRILEPTAL) 10:23: 3D mouth 3 Med ical 600 MG 59 (three) Center tablet times daily. OXcarbazepi 2017-0 Yes 600mg Q.[id number] Take [address] ne 2-23 [id number] mg by [facility] (TRILEPTAL) 10:23: 3D mouth 3 Med ical 600 MG 59 (three) Center tablet times daily. PARoxetine 2017-0 Yes 40mg QD Take [address] (PAXIL) 40 2-23 by mouth [facility] tablet 10:23: nightly. [facility] [address] OXcarbazepi 2017-0 Yes 600mg Q.[id number] Take [address] ne 2-23 [id number] mg by [facility] (TRILEPTAL) 10:23: 3D mouth 3 Med ical 600 MG 59 (three) Center tablet times daily. PARoxetine 2017-0 Yes 40mg QD Take [address] (PAXIL) 40 2-23 by mouth [facility] tablet 10:23: nightly. [facility] [address] OXcarbazepi 2017-0 Yes 600mg Q.[id number] Take [address] ne 2-23 [id number] mg by [facility] (TRILEPTAL) 10:23: 3D mouth 3 Med ical 600 MG 59 (three) Center tablet times daily. PARoxetine 2017-0 Yes 40mg QD Take [address] (PAXIL) 40 2-23 by [facility] tablet 10:23: nightly. [address] PARoxetine 2017-0 Yes 40mg QD Take [address] (PAXIL) 40 2-23 by [facility] tablet 10:23: nightly. [address] OXcarbazepi 2017-0 Yes 600mg Q.[id number] Take [address] ne 2-23 [id number] mg by [facility] (TRILEPTAL) 10:23: 3D mouth 3 Med ical 600 MG 59 (three) Center tablet times daily. PARoxetine 2017-0 Yes 40mg QD Take [address] (PAXIL) 40 2-23 by mouth [facility] tablet 10:23: nightly. [address] OXcarbazepi 2017-0 Yes 600mg Q.[id number] Take [address] ne 2-23 [id number] mg by [facility] (TRILEPTAL) 10:23: 3D mouth 3 Med ical 600 MG 59 (three) Center tablet times daily. PARoxetine 2017-0 Yes 40mg QD Take [address] (PAXIL) 40 2-23 by [facility] tablet 10:23: nightly. [address] OXcarbazepi 2017-0 Yes 600mg Q.[id number] Take [address] [facility] ne 2-23 [id number] mg by [facility] (TRILEPTAL) 10:23: 3D mouth 3 Med ical 600 MG 59 (three) Center tablet times daily. PARoxetine 2017-0 Yes 40mg QD Take [address] (PAXIL) 40 2-23 by [facility] tablet 10:23: nightly. [address] OXcarbazepi 2017-0 Yes 600mg Q.[id number] Take [address] [facility] ne 2-23 [id number] mg by [facility] (TRILEPTAL) 10:23: 3D mouth 3 Med ical 600 MG 59 (three) Center tablet times daily. PARoxetine 2017-0 Yes 40mg QD Take [address] (PAXIL) 40 2-23 by mouth [facility] tablet 10:23: nightly. [address] OXcarbazepi 2017-0 Yes 600mg Q.[id number] Take [address] ne 2-23 [id number] mg by [facility] (TRILEPTAL) 10:23: 3D mouth 3 Med ical 600 MG 59 (three) Center tablet times daily. PARoxetine 2017-0 Yes 40mg QD Take [address] (PAXIL) 40 2-23 by mouth [facility] tablet 10:23: nightly. [facility] [address] OXcarbazepi 2017-0 Yes 600mg Q.[id number] Take [address] ne 2-23 [id number] mg by [facility] (TRILEPTAL) 10:23: 3D mouth 3 Med ical 600 MG 59 (three) Center tablet times daily. PARoxetine 2017-0 Yes 40mg QD Take [address] (PAXIL) 40 2-23 by mouth [facility] tablet 10:23: nightly. [facility] [address] OXcarbazepi 2017-0 Yes 600mg Q.[id number] Take [address] ne 2-23 [id number] mg by [facility] (TRILEPTAL) 10:23: 3D mouth 3 Med ical 600 [facility] 59 (three) Center tablet times daily. PARoxetine 2017-0 Yes 40mg QD Take [address] (PAXIL) 40 2-23 by mouth [facility] tablet 10:23: nightly. [address] OXcarbazepi 2017-0 Yes 600mg Q.[id number] Take [address] ne 2-23 [id number] mg by [facility] (TRILEPTAL) 10:23: 3D mouth 3 Med ical 600 MG 59 (three) Center tablet times daily. OXcarbazepi 2017-0 Yes 600mg Q.[id number] Take [address] ne 2-23 [id number] mg by [facility] (TRILEPTAL) 10:23: 3D mouth 3 Med ical 600 MG 59 (three) Center tablet times daily. PARoxetine 2017-0 Yes 40mg QD Take [address] (PAXIL) 40 2-23 by mouth [facility] tablet 10:23: nightly. [facility] [address] OXcarbazepi 2017-0 Yes 600mg Q.[id number] Take [address] ne 2-23 [id number] mg by [facility] (TRILEPTAL) 10:23: 3D mouth 3 Med ical 600 MG 59 (three) Center tablet times daily. PARoxetine 2017-0 Yes 40mg QD Take [address] (PAXIL) 40 2-23 by mouth [facility] tablet 10:23: nightly. [facility] [address] OXcarbazepi 2017-0 Yes 600mg Q.[id number] Take [address] ne 2-23 [id number] mg by [facility] (TRILEPTAL) 10:23: 3D mouth 3 Med ical 600 MG 59 (three) Center tablet times daily. PARoxetine 2017-0 Yes 40mg QD Take [address] (PAXIL) 40 2-23 by [facility] tablet 10:23: nightly. [facility] [address] OXcarbazepi 2017-0 Yes 600mg Q.[id number] Take [address] ne 2-23 [id number] mg by [facility] (TRILEPTAL) 10:23: 3D mouth 3 Med ical 600 MG 59 (three) Center tablet times daily. PARoxetine 2017-0 Yes 40mg QD Take [address] (PAXIL) 40 2-23 by mouth [facility] tablet 10:23: nightly. [address] PARoxetine 2017-0 Yes 40mg QD Take [address] (PAXIL) 40 2-23 by mouth [facility] tablet 10:23: nightly. [address] OXcarbazepi 2017-0 Yes 600mg Q.[id number] Take [address] ne 2-23 [id number] mg by [facility] (TRILEPTAL) 10:23: 3D mouth 3 Med ical 600 MG 59 (three) Center tablet times daily. PARoxetine 2017-0 Yes 40mg QD Take [address] (PAXIL) 40 2-23 by mouth [facility] tablet 10:23: nightly. [facility] [address] OXcarbazepi 2017-0 Yes 600mg Q.[id number] Take [address] ne 2-23 [id number] mg by [facility] (TRILEPTAL) 10:23: 3D mouth 3 Med ical 600 MG 59 (three) Center tablet times daily. PARoxetine 2017-0 Yes 40mg QD Take [address] (PAXIL) 40 2-23 by mouth [facility] tablet 10:23: nightly. [facility] [address] OXcarbazepi 2017-0 Yes 600mg Q.[id number] Take [address] ne 2-23 [id number] mg by [facility] (TRILEPTAL) 10:23: 3D mouth 3 Med ical 600 MG 59 (three) Center tablet times daily. PARoxetine 2017-0 Yes 40mg QD Take [address] (PAXIL) 40 2-23 by mouth [facility] tablet 10:23: nightly. [facility] anjelica [facility] OXcarbazepi 2017-0 Yes 600mg Q.[id number] Take [address] ne 2-23 [id number] mg by [facility] (TRILEPTAL) 10:23: 3D mouth 3 Med ical 600 MG 59 (three) Center tablet times daily. PARoxetine 2017-0 Yes 40mg QD Take [address] (PAXIL) 40 2-23 by mouth [facility] tablet 10:23: nightly. [facility] anjelica [address] OXcarbazepi 2017-0 Yes 600mg Q.[id number] Take [address] ne 2-23 [id number] mg by [facility] (TRILEPTAL) 10:23: 3D mouth 3 Med ical 600 MG 59 (three) Center tablet times daily. PARoxetine 2017-0 Yes 40mg QD Take [address] (PAXIL) 40 2-23 by mouth [facility] tablet 10:23: nightly. [facility] anjelica [address] OXcarbazepi 2017-0 Yes 600mg Q.[id number] Take [address] ne 2-23 [id number] mg by [facility] (TRILEPTAL) 10:23: 3D mouth 3 Med ical 600 MG 59 (three) Center tablet times daily. PARoxetine 2017-0 Yes 40mg QD Take [address] (PAXIL) 40 2-23 by mouth [facility] tablet 10:23: nightly. [facility] anjelica [address] OXcarbazepi 2017-0 Yes 600mg Q.[id number] Take [address] ne 2-23 [id number] mg by [facility] (TRILEPTAL) 10:23: 3D mouth 3 Med ical 600 MG 59 (three) Center tablet times daily. PARoxetine 2017-0 Yes 40mg QD Take [address] (PAXIL) 40 2-23 by mouth [facility] tablet 10:23: nightly. [facility] [address] OXcarbazepi 2017-0 Yes 600mg Q.[id number] Take [address] ne 2-23 [id number] mg by [facility] (TRILEPTAL) 10:23: 3D mouth 3 Med ical 600 MG 59 (three) Center tablet times daily. OXcarbazepi 2017-0 Yes 600mg Q.[id number] Take [address] [facility] ne 2-23 [id number] mg by [facility] (TRILEPTAL) 10:23: 3D mouth 3 Med ical 600 MG 59 (three) Center tablet times daily. PARoxetine 2017-0 Yes 40mg QD Take [address] (PAXIL) 40 2-23 by mouth [facility] tablet 10:23: nightly. [facility] [address] OXcarbazepi 2017-0 Yes 600mg Q.[id number] Take [address] ne 2-23 [id number] mg by [facility] (TRILEPTAL) 10:23: 3D mouth 3 Med ical 600 MG 59 (three) Center tablet times daily. PARoxetine 2017-0 Yes 40mg QD Take [address] (PAXIL) 40 2-23 by mouth [facility] tablet 10:23: nightly. [facility] [address] OXcarbazepi 2017-0 Yes 600mg Q.[id number] Take [address] ne 2-23 [id number] mg by [facility] (TRILEPTAL) 10:23: 3D mouth 3 Med ical 600 MG 59 (three) Center tablet times daily. PARoxetine 2017-0 Yes 40mg QD Take [address] (PAXIL) 40 2-23 by mouth [facility] tablet 10:23: nightly. [facility] [address] PARoxetine 2017-0 Yes 40mg QD Take [address] (PAXIL) 40 2-23 by mouth [facility] tablet 10:23: nightly. [facility] [address] OXcarbazepi 2017-0 Yes 600mg Q.[id number] Take [address] ne 2-23 [id number] mg by [facility] (TRILEPTAL) 10:23: 3D mouth 3 Med ical 600 MG 59 (three) Center tablet times daily. PARoxetine 2017-0 Yes 40mg QD Take [address] (PAXIL) 40 2-23 by mouth [facility] tablet 10:23: nightly. [facility] [address] OXcarbazepi 2017-0 Yes 600mg Q.[id number] Take [address] ne 2-23 [id number] mg by [facility] (TRILEPTAL) 10:23: 3D mouth 3 Med ical 600 MG 59 (three) Center tablet times daily. PARoxetine 2017-0 Yes 40mg QD Take [address] (PAXIL) 40 2-23 by [facility] tablet 10:23: nightly. [facility] LORazepam 2017-0 Yes 1mg [...] Goal Plan of Care Note [code = 03632-7] Goal Plan of Care Note [code = 82624-5] Goal Plan of Care Note [code = 33691-5] Goal Plan of Care Note [code = 09752-4] Goal Plan of Care Note [code = 00334-3] Goal Plan of Care Note [code = 80041-8] Goal Plan of Care Note [code = 87916-4] Goal Plan of Care Note [code = 29561-9] Goal Plan of Care Note [code = 20747-1] Goal Plan of Care Note [code = 11871-1] Goal Plan of Care Note [code = 35172-0] Goal Plan of Care Note [code = 80698-0] Goal Plan of Care Note [code = 01506-5] Goal Plan of Care Note [code = 50768-8] Goal Plan of Care Note [code = 09819-3] Goal Plan of Care Note [code = 63127-0] Goal Plan of Care Note [code = 19501-3] Goal Plan of Care Note [code = 56146-5] Goal Plan of Care Note [code = 00623-3] Goal Plan of Care Note [code = 52269-1] Goal Plan of Care Note [code = 72905-1] Goal Plan of Care Note [code = 13109-6] Goal Plan of Care Note [code = 20492-2] Goal Plan of Care Note [code = 83258-2] Goal Plan of Care Note [code = 69202-1] Goal Plan of Care Note [code = 58686-7] Goal Plan of Care Note [code = 11815-0] Goal Plan of Care Note [code = 41161-4] Goal Plan of Care Note [code = 75546-9] Goal Plan of Care Note [code = 68094-7] Goal Plan of Care Note [code = 81937-2] Goal Plan of Care Note [code = 68975-8] Goal Plan of Care Note [code = 10178-2] Goal Plan of Care Note [code = 50605-3] Goal Plan of Care Note [code = 09426-0] Goal Plan of Care Note [code = 59249-6] Goal Plan of Care Note [code = 79201-0] Goal Plan of Care Note [code = 41768-4] Goal Plan of Care Note [code = 08045-9] Goal Plan of Care Note [code = 68646-6] Goal Plan of Care Note [code = 34378-1] Goal Plan of Care Note [code = 12877-1] Goal Plan of Care Note [code = 32777-5] Goal Plan of Care Note [code = 14405-1] Goal Plan of Care Note [code = 28000-4] Goal Plan of Care Note [code = 01317-3] Goal Plan of Care Note [code = 15790-8] Goal Plan of Care Note [code = 64250-5] Goal Plan of Care Note [code = 28466-1] Goal Plan of Care Note [code = 49723-7] Goal Plan of Care Note [code = 56637-0] Goal Plan of Care Note [code = 03366-4] Goal Plan of Care Note [code = 80527-5] Goal Plan of Care Note [code = 36273-7] Goal Plan of Care Note [code = 33711-3] Goal Plan of Care Note [code = 80639-5] Goal Plan of Care Note [code = 39383-3] Goal Plan of Care Note [code = 34547-5] Goal Plan of Care Note [code = 96423-0] Goal Plan of Care Note [code = 84344-5] Goal Plan of Care Note [code = 15180-9] Goal Plan of Care Note [code = 90483-6] Goal Plan of Care Note [code = 40293-4] Goal Plan of Care Note [code = 12077-8] Goal Plan of Care Note [code = 41640-8] Goal Plan of Care Note [code = 15367-0] Goal Plan of Care Note [code = 87625-2] Goal Plan of Care Note [code = 91753-9] Goal Plan of Care Note [code = 94545-0] Goal Plan of Care Note [code = 06045-3] Goal Plan of Care Note [code = 25984-8] Goal Plan of Care Note [code = 40119-5] Goal Plan of Care Note [code = 69579-7] Goal Plan of Care Note [code = 43840-0] Goal Plan of Care Note [code = 19105-9] Goal Plan of Care Note [code = 60917-8] Goal Plan of Care Note [code = 56390-4] Goal Plan of Care Note [code = 23641-5] Goal Plan of Care Note [code = 27103-6] Goal Plan of Care Note [code = 54575-3] Goal Plan of Care Note [code = 55071-6] Goal Plan of Care Note [code = 78792-4] Goal Plan of Care Note [code = 67259-6] Goal Plan of Care Note [code = 68864-9] Goal Plan of Care Note [code = 87550-7] Goal Plan of Care Note [code = 17492-0] Goal Plan of Care Note [code = 07577-6] Goal Plan of Care Note [code = 48621-5] Goal Plan of Care Note [code = 03820-1] Goal Plan of Care Note [code = 07713-9] Goal Plan of Care Note [code = 80342-6] Goal Plan of Care Note [code = 71030-6] Goal Plan of Care Note [code = 29719-2] Goal Plan of Care Note [code = 42316-2] Goal Plan of Care Note [code = 56275-7] Goal Plan of Care Note [code = 99434-1] Goal Plan of Care Note [code = 00788-0] Goal Plan of Care Note [code = 82222-5] Goal Plan of Care Note [code = 80895-8] Goal Plan of Care Note [code = 33073-5] Goal Plan of Care Note [code = 03727-4] Goal Plan of Care Note [code = 41689-0] Goal Plan of Care Note [code = 17631-5] Goal Plan of Care Note [code = 21608-8] Goal Plan of Care Note [code = 56770-2] Goal Plan of Care Note [code = 65740-6] Goal Plan of Care Note [code = 73605-2] Goal Plan of Care Note [code = 86580-4] Goal Plan of Care Note [code = 24061-5] Goal Plan of Care Note [code = 93757-0] Goal Plan of Care Note [code = 17235-5] Goal Plan of Care Note [code = 48062-3] Goal Plan of Care Note [code = 11318-4] Goal Plan of Care Note [code = 54163-9] Goal Plan of Care Note [code = 20743-4] Goal Plan of Care Note [code = 31818-7] Goal Plan of Care Note [code = 65222-7] Goal Plan of Care Note [code = 35746-3] Goal Plan of Care Note [code = 63332-5] Goal Plan of Care Note [code = 15154-1] Goal Plan of Care Note [code = 36756-5] Goal Plan of Care Note [code = 45910-7] Goal Plan of Care Note [code = 70385-0] Goal Plan of Care Note [code = 82112-3] Goal Plan of Care Note [code = 86062-8] Goal Plan of Care Note [code = 01672-9] Goal Plan of Care Note [code = 72634-4] Goal Plan of Care Note [code = 79801-8] Goal Plan of Care Note [code = 00707-2] Goal Plan of Care Note [code = 59375-3] Goal Plan of Care Note [code = 61197-6] Goal Plan of Care Note [code = 67144-3] Goal Plan of Care Note [code = 50683-9] Goal Plan of Care Note [code = 66072-0] Goal Plan of Care Note [code = 97503-7] Goal Plan of Care Note [code = 82336-8] Goal Plan of Care Note [code = 03511-2] Goal Plan of Care Note [code = 97321-0] Goal Plan of Care Note [code = 44359-0] Goal Plan of Care Note [code = 59107-8] Goal Plan of Care Note [code = 21704-4] Goal Plan of Care Note [code = 97792-7] Goal Plan of Care Note [code = 76500-6] Goal Plan of Care Note [code = 47595-5] Goal Plan of Care Note [code = 42988-2] Goal Plan of Care Note [code = 12985-0] Goal Plan of Care Note [code = 55589-8] Goal Plan of Care Note [code = 05041-7] Goal Plan of Care Note [code = 91480-7] Goal Plan of Care Note [code = 31096-7] Goal Plan of Care Note [code = 93697-4] Goal Plan of Care Note [code = 56308-0] Goal Plan of Care Note [code = 95253-1] Goal Plan of Care Note [code = 99447-6] Goal Plan of Care Note [code = 42707-8] Goal Plan of Care Note [code = 35352-8] Goal Plan of Care Note [code = 78212-7] Goal Plan of Care Note [code = 59031-0] Goal Plan of Care Note [code = 51227-1] Goal Plan of Care Note [code = 30095-5] Goal Plan of Care Note [code = 89128-2] Goal Plan of Care Note [code = 89777-2] Goal Plan of Care Note [code = 19133-6] Goal Plan of Care Note [code = 12783-1] Goal Plan of Care Note [code = 13737-1] Goal Plan of Care Note [code = 01856-6] Goal Plan of Care Note [code = 53540-9] Goal Plan of Care Note [code = 34249-5] Goal Plan of Care Note [code = 78730-7] Goal Plan of Care Note [code = 53088-8] Goal Plan of Care Note [code = 40520-5] Goal Plan of Care Note [code = 98829-4] Goal Plan of Care Note [code = 42131-0] Goal Plan of Care Note [code = 12637-7] Goal Plan of Care Note [code = 31851-8] Goal Plan of Care Note [code = 53349-8] Goal Plan of Care Note [code = 89695-0] Goal Plan of Care Note [code = 47680-7] Goal Plan of Care Note [code = 26823-4] Goal Plan of Care Note [code = 80653-2] Goal Plan of Care Note [code = 47681-6] Goal Plan of Care Note [code = 53118-6] Goal Plan of Care Note [code = 88197-6] Goal Plan of Care Note [code = 01205-9] Goal Plan of Care Note [code = 40809-5] Goal Plan of Care Note [code = 06019-9] Goal Plan of Care Note [code = 90171-6] Goal Plan of Care Note [code = 02428-7] Goal Plan of Care Note [code = 33634-7] Goal Plan of Care Note [code = 65275-4] Goal Plan of Care Note [code = 44080-2] Goal Plan of Care Note [code = 91286-1] Goal Plan of Care Note [code = 73074-3] Goal Plan of Care Note [code = 67408-7] Goal Plan of Care Note [code = 57980-2] Goal Plan of Care Note [code = 70094-5] Goal Plan of Care Note [code = 86408-5] Goal Plan of Care Note [code = 07360-8] Goal Plan of Care Note [code = 70397-8] Goal Plan of Care Note [code = 36697-6] Goal Plan of Care Note [code = 11018-0] Goal Plan of Care Note [code = 18187-9] Goal Plan of Care Note [code = 64010-1] Goal Plan of Care Note [code = 86215-9] Goal Plan of Care Note [code = 50781-4] Goal Plan of Care Note [code = 25611-7] Goal Plan of Care Note [code = 66692-2] Goal Plan of Care Note [code = 45017-6] Encounters Start End Encounter Admission Attending Care Care Encounter Source Date/Time Date/Time Type Type Clinicians Facility Department ID 2021-06-01 Outpatient [facility] [place] [id number] [place] 01:36:29 [id number] [facility] 2022-05-24 2022-05-24 Outpatient [facility] [id number] Cristian 10:36:59 10:36:59 [id number] F Jerman 2022-02-11 2022-02-11 Outpatient [facility] SFA [id number] Cristian 09:04:48 09:04:48 [id number] F Jerman 2022-02-10 2022-02-10 Outpatient SFA SFA [id number] 022 Cristian 09:29:34 09:29:34 1205 F Jerman 2022-02-10 2022-02-10 Outpatient [id number]- [id number] 8o80b6-7 00:00:00 00:00:00 Visit 4089-4cab 089-4cab-9 -3rt9-k5o bf5-v1p861 548pffl25 bafa93 2022-01-10 2022-01-10 Outpatient SFA [facility] [id number] 022 Cristian 09:16:14 09:16:14 1104 F Jerman 2022-01-10 2022-01-10 Outpatient j3jdebn5- [id number] f2 accaa6-a 00:00:00 00:00:00 Visit aca9-4c83 ca9-4c83-a -z6bt-uk8 7eb-bc13f3 1y7e929f5 f032f9 2021-12-19 2021-12-19 Outpatient SFA [facility] [id number] 022 Cristian 16:11:31 16:11:31 1013 F Jerman 2021-12-19 2021-12-19 Outpatient [id number]- [id number] 466cae-a 00:00:00 00:00:00 Visit c039-690i 770-441f-a -adae-62b amelia-62bace dkswy25mu fd81af 2021-09-17 2021-09-17 Outpatient cpu6yzbm- [id number] aa n5ytyk-8 00:00:00 00:00:00 Visit 935a-4f50 35a-4f50-b -z58i-r4j 77d-c2ba85 [id number] 1264a6 2020-08-03 2020-08-[address]ATT VÁSQUEZ [facility] [id number] Univers 10:00:00 10:00:00 MATT SIMPSON [facility] 2020-07-25 2020-07-25 Orders Doctor FISH [id number] 00:00:00 00:00:00 Only Unassigned, BK 350.1.13.10 [place] [facility] [id number] [id number] 2019-09-26 2019-09-[address] [facility] [id number] Univers 16:00:00 16:00:00 WALLY [facility] 2018-10-21 2018-10-[address] [facility] [id number] 00:00:00 00:00:00 Natacha Nguyen 350.1.13.10 [place] 4.2.7.2.686 [facility] [id number] critical access hospital 204 [facility] Results Test Description Test Time Test Comments Results Result Comments Source TSH, THIRD GENERATION 2022-05-26 02:57:49 Test Item Value Reference Range Interpretation Comme nts TSH, THIRD GENERATION (test code = 2821) 6.350 UIU/ML 0.400-4.100 H LIPID [id number] 01:09:34 Test Item Value Reference Range Interpretation [...] MOREINFORMATION , SEE CLIENT ANNOUNCE MENT AT [email or web address] /[email or web address]-[email or web address] RISK RATIO LDL/HDL 2.73 RATIO <3.22 [facility] has important (test code = 2238) pathology staff changes effecti ve 05/07/2022. New pathology staff will provide uninter rupted, excellent patie nt care and clinical consultation. S ee URL: [email or web address] S OTHERWISE INDIC ATED, ALL TESTING PER FORMED AT CLINICAL [facility] [employer]. [address] [place] [address] ISIDRA SUH DIRECTOR: Andrew WHITLEY CONNOR NUMBER [id number] CAP ACCREDITATION N O. [id number] HEMOGLOBIN [id number] 03:17:24 Test Item Value Reference Range Interpretation Comments HEMOGLOBIN A1c (test 6.4 % 4.2-5.6 H AMERIC AN DIABETES code = 42443) ASSOCIATION IDELINES FOR HGB A1C: PREDIABETES/INC REASED [...] TESTING OR LABORATORY C ONSULTATION. TSH, THIRD [id number] 05:15:49 Test Item Value Reference Range Interpretation Comments TSH, THIRD GENERATION (test code 2.080 UIU/ML 0.400-4.100 = 2821) HEMOGLOBIN [id number] 03:46:00 Test Item Value Reference Range Interpretation Comments HEMOGLOBIN A1c (test 6.6 % 4.2-5.6 H AMERIC AN DIABETES code = 27230) ASSOCIATION IDELINES FOR HGB A1C: PREDIABETES/INC REASED [...] TESTING PER FORMED ATCLINICAL PATH [facility]LOGY LAB[facility]ATOR[facility], [facility]. [address] [place] [address] LABORATORY DIRE CTOR: DIANA RUSS M.D. CLIA NUMBER [id number] [place]. [id number] LIPID [id number] 02:59:52 Test Item Value Reference Range Interpretation [...] MOREINFORMATION , SEE CLIENT ANNOUNCE MENT AT [email or web address] /CalcLDL-C RISK RATIO LDL/HDL 4.02 RATIO <3.22 H (test code = 2238) [id number] 00:00:00 Test Item Value Reference Range Interpretation Comments TSH, THIRD GENERATION (test code 2.080 UIU/ML = 2821) [id number] 00:00:00 Test Item Value Reference Range Interpretation Comments TSH, THIRD GENERATION (test code 2.080 UIU/ML = 2821) [id number] 00:00:00 Test Item Value Reference Range Interpretation Comments TSH, THIRD GENERATION (test code 2.080 UIU/ML = 2821) LIPID [id number] 00:00:00 Test Item Value Reference Range Interpretation Comments CHOLESTEROL (test code = 2210) 292 MG/DL TRIGLYCERIDES (test code = 2232) 184 MG/DL HDL CHOLESTEROL (test code = 2220) 51 MG/DL CALC LDL CHOL (test code = 2237) 205 MG/DL RISK RATIO LDL/HDL (test code = 4.02 RATIO 2238) LIPID [id number] 00:00:00 Test Item Value Reference Range Interpretation Comments CHOLESTEROL (test code = 2210) 292 MG/DL TRIGLYCERIDES (test code = 2232) 184 MG/DL HDL CHOLESTEROL (test code = 2220) 51 MG/DL CALC LDL CHOL (test code = 2237) 205 MG/DL RISK RATIO LDL/HDL (test code = 4.02 RATIO 2238) HEMOGLOBIN [id number] 00:00:00 Test Item Value Reference Range Interpretation Comments HEMOGLOBIN A1c (test code = 68517) 6.6 % HEMOGLOBIN [id number] 00:00:00 Test Item Value Reference Range Interpretation Comments HEMOGLOBIN A1c (test code = 81523) 6.6 % HEMOGLOBIN [id number] 00:00:00 Test Item Value Reference Range Interpretation Comments HEMOGLOBIN A1c (test code = 24252) 6.6 % [id number] 00:00:00 Test Item Value Reference Range Interpretation Comments TSH, THIRD GENERATION (test code 2.080 UIU/ML = 2821) [id number] 00:00:00 Test Item Value Reference Range Interpretation Comments TSH, THIRD GENERATION (test code 2.080 UIU/ML = 2821) [id number] 00:00:00 Test Item Value Reference Range Interpretation Comments TSH, THIRD GENERATION (test code 2.080 UIU/ML = 2821) LIPID [id number] 00:00:00 Test Item Value Reference Range Interpretation Comments CHOLESTEROL (test code = 2210) 292 MG/DL TRIGLYCERIDES (test code = 2232) 184 MG/DL HDL CHOLESTEROL (test code = 2220) 51 MG/DL CALC LDL CHOL (test code = 2237) 205 MG/DL RISK RATIO LDL/HDL (test code = 4.02 RATIO 2238) LIPID [id number] 00:00:00 Test Item Value Reference Range Interpretation Comments CHOLESTEROL (test code = 2210) 292 MG/DL TRIGLYCERIDES (test code = 2232) 184 MG/DL HDL CHOLESTEROL (test code = 2220) 51 MG/DL CALC LDL CHOL (test code = 2237) 205 MG/DL RISK RATIO LDL/HDL (test code = 4.02 RATIO 2238) HEMOGLOBIN [id number] 00:00:00 Test Item Value Reference Range Interpretation Comments HEMOGLOBIN A1c (test code = 35646) 6.6 % HEMOGLOBIN [id number] 00:00:00 Test Item Value Reference Range Interpretation Comments HEMOGLOBIN A1c (test code = 64194) 6.6 % HEMOGLOBIN [id number] 00:00:00 Test Item Value Reference Range Interpretation Comments HEMOGLOBIN A1c (test code = 48864) 6.6 % [id number] 00:00:00 Test Item Value Reference Range Interpretation Comments TSH, THIRD GENERATION (test code 2.080 UIU/ML = 2821) [id number] 00:00:00 Test Item Value Reference Range Interpretation Comments TSH, THIRD GENERATION (test code 2.080 UIU/ML = 2821) LIPID [id number] 00:00:00 Test Item Value Reference Range Interpretation Comments CHOLESTEROL (test code = 2210) 292 MG/DL TRIGLYCERIDES (test code = 2232) 184 MG/DL HDL CHOLESTEROL (test code = 2220) 51 MG/DL CALC LDL CHOL (test code = 2237) 205 MG/DL RISK RATIO LDL/HDL (test code = 4.02 RATIO 2238) HEMOGLOBIN [id number] 00:00:00 Test Item Value Reference Range Interpretation Comments HEMOGLOBIN A1c (test code = 01723) 6.6 % HEMOGLOBIN [id number] 00:00:00 Test Item Value Reference Range Interpretation Comments HEMOGLOBIN A1c (test code = 63727) 6.6 % [id number] 00:00:00 Test Item Value Reference Range Interpretation Comments TSH, THIRD GENERATION (test code 2.080 UIU/ML = 2821) [id number] 00:00:00 Test Item Value Reference Range Interpretation Comments TSH, THIRD GENERATION (test code 2.080 UIU/ML = 2821) [id number] 00:00:00 Test Item Value Reference Range Interpretation Comments TSH, THIRD GENERATION (test code 2.080 UIU/ML = 2821) LIPID [id number] 00:00:00 Test Item Value Reference Range Interpretation Comments CHOLESTEROL (test code = 2210) 292 MG/DL TRIGLYCERIDES (test code = 2232) 184 MG/DL HDL CHOLESTEROL (test code = 2220) 51 MG/DL CALC LDL CHOL (test code = 2237) 205 MG/DL RISK RATIO LDL/HDL (test code = 4.02 RATIO 2238) LIPID [id number] 00:00:00 Test Item Value Reference Range Interpretation Comments CHOLESTEROL (test code = 2210) 292 MG/DL TRIGLYCERIDES (test code = 2232) 184 MG/DL HDL CHOLESTEROL (test code = 2220) 51 MG/DL CALC LDL CHOL (test code = 2237) 205 MG/DL RISK RATIO LDL/HDL (test code = 4.02 RATIO 2238) HEMOGLOBIN [id number] 00:00:00 Test Item Value Reference Range Interpretation Comments HEMOGLOBIN A1c (test code = 34257) 6.6 % HEMOGLOBIN [id number] 00:00:00 Test Item Value Reference Range Interpretation Comments HEMOGLOBIN A1c (test code = 35260) 6.6 % HEMOGLOBIN [id number] 00:00:00 Test Item Value Reference Range Interpretation Comments HEMOGLOBIN A1c (test code = 96455) 6.6 % HEMOGLOBIN [id number] 00:00:00 Test Item Value Reference Range Interpretation Comments HEMOGLOBIN A1c (test code = 42249) 6.8 % HEMOGLOBIN [id number] 00:00:00 Test Item Value Reference Range Interpretation Comments HEMOGLOBIN A1c (test code = 48946) 6.8 % HEMOGLOBIN [id number] 00:00:00 Test Item Value Reference Range Interpretation Comments HEMOGLOBIN A1c (test code = 53160) 6.8 % LIPID [id number] 00:00:00 Test Item Value Reference Range Interpretation Comments CHOLESTEROL (test code = 2210) 303 MG/DL TRIGLYCERIDES (test code = 2232) 191 MG/DL HDL CHOLESTEROL (test code = 2220) 61 MG/DL CALC LDL CHOL (test code = 2237) 205 MG/DL RISK RATIO LDL/HDL (test code = 3.36 RATIO 2238) LIPID [id number] 00:00:00 Test Item Value Reference Range Interpretation Comments CHOLESTEROL (test code = 2210) 303 MG/DL TRIGLYCERIDES (test code = 2232) 191 MG/DL HDL CHOLESTEROL (test code = 2220) 61 MG/DL CALC LDL CHOL (test code = 2237) 205 MG/DL RISK RATIO LDL/HDL (test code = 3.36 RATIO 2238) [id number] 00:00:00 Test Item Value Reference Range Interpretation Comments TSH, THIRD GENERATION (test code 0.769 UIU/ML = 2821) [id number] 00:00:00 Test Item Value Reference Range Interpretation Comments TSH, THIRD GENERATION (test code 0.769 UIU/ML = 2821) [id number] 00:00:00 Test Item Value Reference Range Interpretation Comments TSH, THIRD GENERATION (test code 0.769 UIU/ML = 2821) COMPREHENSIVE METABOLIC [id number] 00:00:00 Test Item Value Reference Range Interpretation Comments GLUCOSE (test code = 2217) 131 MG/DL BUN (test code = 2208) 13 MG/DL CREATININE (test code = 2214) 0.65 MG/DL eGFR AMER. (test code 113 ML/MIN/1.73 = 78068) eGFR NON- AMER. (test 97 ML/MIN/1.73 code = 54331) CALC BUN/CREAT (test code = 20 RATIO [...] code = 2219) 23 U/L COMPREHENSIVE METABOLIC [id number] 00:00:00 Test Item Value Reference Range Interpretation Comments GLUCOSE (test code = 2217) 131 MG/DL BUN (test code = 2208) 13 MG/DL CREATININE (test code = 2214) 0.65 MG/DL eGFR AMER. (test code 113 ML/MIN/1.73 = 14025) eGFR NON- AMER. (test 97 ML/MIN/1.73 code = 28151) CALC BUN/CREAT (test code = 20 RATIO [...] (test code = 2219) 23 U/L HEMOGLOBIN [id number] 00:00:00 Test Item Value Reference Range Interpretation Comments HEMOGLOBIN A1c (test code = 97064) 6.8 % HEMOGLOBIN [id number] 00:00:00 Test Item Value Reference Range Interpretation Comments HEMOGLOBIN A1c (test code = 97220) 6.8 % HEMOGLOBIN [id number] 00:00:00 Test Item Value Reference Range Interpretation Comments HEMOGLOBIN A1c (test code = 32429) 6.8 % LIPID [id number] 00:00:00 Test Item Value Reference Range Interpretation Comments CHOLESTEROL (test code = 2210) 303 MG/DL TRIGLYCERIDES (test code = 2232) 191 MG/DL HDL CHOLESTEROL (test code = 2220) 61 MG/DL CALC LDL CHOL (test code = 2237) 205 MG/DL RISK RATIO LDL/HDL (test code = 3.36 RATIO 2238) LIPID [id number] 00:00:00 Test Item Value Reference Range Interpretation Comments CHOLESTEROL (test code = 2210) 303 MG/DL TRIGLYCERIDES (test code = 2232) 191 MG/DL HDL CHOLESTEROL (test code = 2220) 61 MG/DL CALC LDL CHOL (test code = 2237) 205 MG/DL RISK RATIO LDL/HDL (test code = 3.36 RATIO 2238) [id number] 00:00:00 Test Item Value Reference Range Interpretation Comments TSH, THIRD GENERATION (test code 0.769 UIU/ML = 2821) [id number] 00:00:00 Test Item Value Reference Range Interpretation Comments TSH, THIRD GENERATION (test code 0.769 UIU/ML = 2821) [id number] 00:00:00 Test Item Value Reference Range Interpretation Comments TSH, THIRD GENERATION (test code 0.769 UIU/ML = 2821) COMPREHENSIVE METABOLIC [id number] 00:00:00 Test Item Value Reference Range Interpretation Comments GLUCOSE (test code = 2217) 131 MG/DL BUN (test code = 2208) 13 MG/DL CREATININE (test code = 2214) 0.65 MG/DL eGFR AMER. (test code 113 ML/MIN/1.73 = 71482) eGFR NON- AMER. (test 97 ML/MIN/1.73 code = 77695) CALC BUN/CREAT (test code = 20 RATIO [...] code = 2219) 23 U/L COMPREHENSIVE METABOLIC [id number] 00:00:00 Test Item Value Reference Range Interpretation Comments GLUCOSE (test code = 2217) 131 MG/DL BUN (test code = 2208) 13 MG/DL CREATININE (test code = 2214) 0.65 MG/DL eGFR AMER. (test code 113 ML/MIN/1.73 = 52260) eGFR NON- AMER. (test 97 ML/MIN/1.73 code = 09591) CALC BUN/CREAT (test code = 20 RATIO [...] (test code = 2219) 23 U/L HEMOGLOBIN [id number] 00:00:00 Test Item Value Reference Range Interpretation Comments HEMOGLOBIN A1c (test code = 84369) 6.8 % HEMOGLOBIN [id number] 00:00:00 Test Item Value Reference Range Interpretation Comments HEMOGLOBIN A1c (test code = 35508) 6.8 % LIPID [id number] 00:00:00 Test Item Value Reference Range Interpretation Comments CHOLESTEROL (test code = 2210) 303 MG/DL TRIGLYCERIDES (test code = 2232) 191 MG/DL HDL CHOLESTEROL (test code = 2220) 61 MG/DL CALC LDL CHOL (test code = 2237) 205 MG/DL RISK RATIO LDL/HDL (test code = 3.36 RATIO 2238) [id number] 00:00:00 Test Item Value Reference Range Interpretation Comments TSH, THIRD GENERATION (test code 0.769 UIU/ML = 2821) [id number] 00:00:00 Test Item Value Reference Range Interpretation Comments TSH, THIRD GENERATION (test code 0.769 UIU/ML = 2821) COMPREHENSIVE METABOLIC [id number] 00:00:00 Test Item Value Reference Range Interpretation Comments GLUCOSE (test code = 2217) 131 MG/DL BUN (test code = 2208) 13 MG/DL CREATININE (test code = 2214) 0.65 MG/DL eGFR AMER. (test code 113 ML/MIN/1.73 = 37498) eGFR NON- AMER. (test 97 ML/MIN/1.73 code = 30610) CALC BUN/CREAT (test code = 20 RATIO [...] (test code = 2219) 23 U/L HEMOGLOBIN [id number] 00:00:00 Test Item Value Reference Range Interpretation Comments HEMOGLOBIN A1c (test code = 70253) 6.8 % HEMOGLOBIN [id number] 00:00:00 Test Item Value Reference Range Interpretation Comments HEMOGLOBIN A1c (test code = 98167) 6.8 % HEMOGLOBIN [id number] 00:00:00 Test Item Value Reference Range Interpretation Comments HEMOGLOBIN A1c (test code = 33982) 6.8 % LIPID [id number] 00:00:00 Test Item Value Reference Range Interpretation Comments CHOLESTEROL (test code = 2210) 303 MG/DL TRIGLYCERIDES (test code = 2232) 191 MG/DL HDL CHOLESTEROL (test code = 2220) 61 MG/DL CALC LDL CHOL (test code = 2237) 205 MG/DL RISK RATIO LDL/HDL (test code = 3.36 RATIO 2238) LIPID [id number] 00:00:00 Test Item Value Reference Range Interpretation Comments CHOLESTEROL (test code = 2210) 303 MG/DL TRIGLYCERIDES (test code = 2232) 191 MG/DL HDL CHOLESTEROL (test code = 2220) 61 MG/DL CALC LDL CHOL (test code = 2237) 205 MG/DL RISK RATIO LDL/HDL (test code = 3.36 RATIO 2238) [id number] 00:00:00 Test Item Value Reference Range Interpretation Comments TSH, THIRD GENERATION (test code 0.769 UIU/ML = 2821) [id number] 00:00:00 Test Item Value Reference Range Interpretation Comments TSH, THIRD GENERATION (test code 0.769 UIU/ML = 2821) [id number] 00:00:00 Test Item Value Reference Range Interpretation Comments TSH, THIRD GENERATION (test code 0.769 UIU/ML = 2821) COMPREHENSIVE METABOLIC [id number] 00:00:00 Test Item Value Reference Range Interpretation Comments GLUCOSE (test code = 2217) 131 MG/DL BUN (test code = 2208) 13 MG/DL CREATININE (test code = 2214) 0.65 MG/DL eGFR AMER. (test code 113 ML/MIN/1.73 = 20236) eGFR NON- AMER. (test 97 ML/MIN/1.73 code = 99634) CALC BUN/CREAT (test code = 20 RATIO [...] code = 2219) 23 U/L COMPREHENSIVE METABOLIC [id number] 00:00:00 Test Item Value Reference Range Interpretation Comments GLUCOSE (test code = 2217) 131 MG/DL BUN (test code = 2208) 13 MG/DL CREATININE (test code = 2214) 0.65 MG/DL eGFR AMER. (test code 113 ML/MIN/1.73 = 52083) eGFR NON- AMER. (test 97 ML/MIN/1.73 code = 10693) CALC BUN/CREAT (test code = 20 RATIO [...] (test code = 2219) 23 U/L HEMOGLOBIN [id number] 00:00:00 Test Item Value Reference Range Interpretation Comments HEMOGLOBIN A1c (test code = 05613) 6.6 % HEMOGLOBIN [id number] 00:00:00 Test Item Value Reference Range Interpretation Comments HEMOGLOBIN A1c (test code = 81329) 6.6 % HEMOGLOBIN [id number] 00:00:00 Test Item Value Reference Range Interpretation Comments HEMOGLOBIN A1c (test code = 03628) 6.6 % LIPID [id number] 00:00:00 Test Item Value Reference Range Interpretation Comments CHOLESTEROL (test code = 2210) 261 MG/DL TRIGLYCERIDES (test code = 2232) 159 MG/DL HDL CHOLESTEROL (test code = 2220) 82 MG/DL CALC LDL CHOL (test code = 2237) 150 MG/DL RISK RATIO LDL/HDL (test code = 1.83 RATIO 2238) LIPID [id number] 00:00:00 Test Item Value Reference Range Interpretation Comments CHOLESTEROL (test code = 2210) 261 MG/DL TRIGLYCERIDES (test code = 2232) 159 MG/DL HDL CHOLESTEROL (test code = 2220) 82 MG/DL CALC LDL CHOL (test code = 2237) 150 MG/DL RISK RATIO LDL/HDL (test code = 1.83 RATIO 2238) COMPREHENSIVE METABOLIC [id number] 00:00:00 Test Item Value Reference Range Interpretation Comments GLUCOSE (test code = 2217) 144 MG/DL BUN (test code = 2208) 15 MG/DL CREATININE (test code = 2214) 0.85 MG/DL eGFR AMER. (test code 87 ML/MIN/1.73 = 76628) eGFR NON- AMER. (test 75 ML/MIN/1.73 code = 76525) CALC BUN/CREAT (test code = 18 RATIO [...] code = 2219) 50 U/L COMPREHENSIVE METABOLIC [id number] 00:00:00 Test Item Value Reference Range Interpretation Comments GLUCOSE (test code = 2217) 144 MG/DL BUN (test code = 2208) 15 MG/DL CREATININE (test code = 2214) 0.85 MG/DL eGFR AMER. (test code 87 ML/MIN/1.73 = 93661) eGFR NON- AMER. (test 75 ML/MIN/1.73 code = 88871) CALC BUN/CREAT (test code = 18 RATIO [...] THYROX. BIND. CAPAC. (test code 1.1 = 54834) T4 (THYROXINE) (test code = 4.3 UG/DL 2819) CORRECTED T4 (FTI) (test code = 3.9 UG/DL 2820) TSH, THIRD GENERATION (test 18.900 UIU/ML code = 2821) THYROID II PROFILE (T3U, T4, T7, TSH)[id number] 00:00:00 Test Item Value Reference Range Interpretation Comments T-UPTAKE (test code = 2816) 30.2 % THYROX. BIND. CAPAC. (test code 1.1 = 60478) T4 (THYROXINE) (test code = 4.3 UG/DL 2819) CORRECTED T4 (FTI) (test code = 3.9 UG/DL 2820) TSH, THIRD GENERATION (test 18.900 UIU/ML code = 2821) HEMOGLOBIN [id number] 00:00:00 Test Item Value Reference Range Interpretation Comments HEMOGLOBIN A1c (test code = 74379) 6.6 % HEMOGLOBIN [id number] 00:00:00 Test Item Value Reference Range Interpretation Comments HEMOGLOBIN A1c (test code = 13600) 6.6 % HEMOGLOBIN [id number] 00:00:00 Test Item Value Reference Range Interpretation Comments HEMOGLOBIN A1c (test code = 97654) 6.6 % LIPID [id number] 00:00:00 Test Item Value Reference Range Interpretation Comments CHOLESTEROL (test code = 2210) 261 MG/DL TRIGLYCERIDES (test code = 2232) 159 MG/DL HDL CHOLESTEROL (test code = 2220) 82 MG/DL CALC LDL CHOL (test code = 2237) 150 MG/DL RISK RATIO LDL/HDL (test code = 1.83 RATIO 2238) LIPID [id number] 00:00:00 Test Item Value Reference Range Interpretation Comments CHOLESTEROL (test code = 2210) 261 MG/DL TRIGLYCERIDES (test code = 2232) 159 MG/DL HDL CHOLESTEROL (test code = 2220) 82 MG/DL CALC LDL CHOL (test code = 2237) 150 MG/DL RISK RATIO LDL/HDL (test code = 1.83 RATIO 2238) COMPREHENSIVE METABOLIC [id number] 00:00:00 Test Item Value Reference Range Interpretation Comments GLUCOSE (test code = 2217) 144 MG/DL BUN (test code = 2208) 15 MG/DL CREATININE (test code = 2214) 0.85 MG/DL eGFR AMER. (test code 87 ML/MIN/1.73 = 20125) eGFR NON- AMER. (test 75 ML/MIN/1.73 code = 84548) CALC BUN/CREAT (test code = 18 RATIO [...] code = 2219) 50 U/L COMPREHENSIVE METABOLIC [id number] 00:00:00 Test Item Value Reference Range Interpretation Comments GLUCOSE (test code = 2217) 144 MG/DL BUN (test code = 2208) 15 MG/DL CREATININE (test code = 2214) 0.85 MG/DL eGFR AMER. (test code 87 ML/MIN/1.73 = 23869) eGFR NON- AMER. (test 75 ML/MIN/1.73 code = 90038) CALC BUN/CREAT (test code = 18 RATIO [...] THYROX. BIND. CAPAC. (test code 1.1 = 45083) T4 (THYROXINE) (test code = 4.3 UG/DL 2819) CORRECTED T4 (FTI) (test code = 3.9 UG/DL 2820) TSH, THIRD GENERATION (test 18.900 UIU/ML code = 2821) THYROID II PROFILE (T3U, T4, T7, TSH)2020-05-23 00:00:00 Test Item Value Reference Range Interpretation Comments T-UPTAKE (test code = 2817) 30.2 % THYROX. BIND. CAPAC. (test code 1.1 = 60251) T4 (THYROXINE) (test code = 4.3 UG/DL 2819) CORRECTED T4 (FTI) (test code = 3.9 UG/DL 2820) TSH, THIRD GENERATION (test 18.900 UIU/ML code = 2821) HEMOGLOBIN [id number] 00:00:00 Test Item Value Reference Range Interpretation Comments HEMOGLOBIN A1c (test code = 03706) 6.6 % HEMOGLOBIN [id number] 00:00:00 Test Item Value Reference Range Interpretation Comments HEMOGLOBIN A1c (test code = 83040) 6.6 % LIPID [id number] 00:00:00 Test Item Value Reference Range Interpretation Comments CHOLESTEROL (test code = 2210) 261 MG/DL TRIGLYCERIDES (test code = 2232) 159 MG/DL HDL CHOLESTEROL (test code = 2220) 82 MG/DL CALC LDL CHOL (test code = 2237) 150 MG/DL RISK RATIO LDL/HDL (test code = 1.83 RATIO 2238) COMPREHENSIVE METABOLIC [id number] 00:00:00 Test Item Value Reference Range Interpretation Comments GLUCOSE (test code = 2217) 144 MG/DL BUN (test code = 2208) 15 MG/DL CREATININE (test code = 2214) 0.85 MG/DL eGFR AMER. (test code 87 ML/MIN/1.73 = 00712) eGFR NON- AMER. (test 75 ML/MIN/1.73 code = 56092) CALC BUN/CREAT (test code = 18 RATIO [...] THYROX. BIND. CAPAC. (test code 1.1 = 88671) T4 (THYROXINE) (test code = 4.3 UG/DL 2819) CORRECTED T4 (FTI) (test code = 3.9 UG/DL 2820) TSH, THIRD GENERATION (test 18.900 UIU/ML code = 2821) HEMOGLOBIN [id number] 00:00:00 Test Item Value Reference Range Interpretation Comments HEMOGLOBIN A1c (test code = 14225) 6.6 % HEMOGLOBIN [id number] 00:00:00 Test Item Value Reference Range Interpretation Comments HEMOGLOBIN A1c (test code = 93592) 6.6 % HEMOGLOBIN [id number] 00:00:00 Test Item Value Reference Range Interpretation Comments HEMOGLOBIN A1c (test code = 41736) 6.6 % LIPID [id number] 00:00:00 Test Item Value Reference Range Interpretation Comments CHOLESTEROL (test code = 2210) 261 MG/DL TRIGLYCERIDES (test code = 2232) 159 MG/DL HDL CHOLESTEROL (test code = 2220) 82 MG/DL CALC LDL CHOL (test code = 2237) 150 MG/DL RISK RATIO LDL/HDL (test code = 1.83 RATIO 2238) LIPID [id number] 00:00:00 Test Item Value Reference Range Interpretation Comments CHOLESTEROL (test code = 2210) 261 MG/DL TRIGLYCERIDES (test code = 2232) 159 MG/DL HDL CHOLESTEROL (test code = 2220) 82 MG/DL CALC LDL CHOL (test code = 2237) 150 MG/DL RISK RATIO LDL/HDL (test code = 1.83 RATIO 2238) COMPREHENSIVE METABOLIC [id number] 00:00:00 Test Item Value Reference Range Interpretation Comments GLUCOSE (test code = 2217) 144 MG/DL BUN (test code = 2208) 15 MG/DL CREATININE (test code = 2214) 0.85 MG/DL eGFR AMER. (test code 87 ML/MIN/1.73 = 23882) eGFR NON- AMER. (test 75 ML/MIN/1.73 code = 35463) CALC BUN/CREAT (test code = 18 RATIO [...] code = 2219) 50 U/L COMPREHENSIVE METABOLIC [id number] 00:00:00 Test Item Value Reference Range Interpretation Comments GLUCOSE (test code = 2217) 144 MG/DL BUN (test code = 2208) 15 MG/DL CREATININE (test code = 2214) 0.85 MG/DL eGFR AMER. (test code 87 ML/MIN/1.73 = 79530) eGFR NON- AMER. (test 75 ML/MIN/1.73 code = 49664) CALC BUN/CREAT (test code = 18 RATIO [...] THYROX. BIND. CAPAC. (test code 1.1 = 73899) T4 (THYROXINE) (test code = 4.3 UG/DL 2819) CORRECTED T4 (FTI) (test code = 3.9 UG/DL 2820) TSH, THIRD GENERATION (test 18.900 UIU/ML code = 2821) THYROID II PROFILE (T3U, T4, T7, TSH)2020-05-23 00:00:00 Test Item Value Reference Range Interpretation Comments T-UPTAKE (test code = 2817) 30.2 % THYROX. BIND. CAPAC. (test code 1.1 = 89351) T4 (THYROXINE) (test code = 4.3 UG/DL 2819) CORRECTED T4 (FTI) (test code = 3.9 UG/DL 2820) TSH, THIRD GENERATION (test 18.900 UIU/ML code = 2821) HEMOGLOBIN [id number] 00:00:00 Test Item Value Reference Range Interpretation Comments HEMOGLOBIN A1c (test code = 11924) 6.7 % HEMOGLOBIN [id number] 00:00:00 Test Item Value Reference Range Interpretation Comments HEMOGLOBIN A1c (test code = 28653) 6.7 % HEMOGLOBIN [id number] 00:00:00 Test Item Value Reference Range Interpretation Comments HEMOGLOBIN A1c (test code = 64213) 6.7 % LIPID [id number] 00:00:00 Test Item Value Reference Range Interpretation Comments CHOLESTEROL (test code = 2210) 267 MG/DL TRIGLYCERIDES (test code = 2232) 137 MG/DL HDL CHOLESTEROL (test code = 2220) 48 MG/DL CALC LDL CHOL (test code = 2237) 192 MG/DL RISK RATIO LDL/HDL (test code = 4.00 RATIO 2238) LIPID [id number] 00:00:00 Test Item Value Reference Range Interpretation Comments CHOLESTEROL (test code = 2210) 267 MG/DL TRIGLYCERIDES (test code = 2232) 137 MG/DL HDL CHOLESTEROL (test code = 2220) 48 MG/DL CALC LDL CHOL (test code = 2237) 192 MG/DL RISK RATIO LDL/HDL (test code = 4.00 RATIO 2238) COMPREHENSIVE METABOLIC [id number] 00:00:00 Test Item Value Reference Range Interpretation Comments GLUCOSE (test code = 2217) 155 MG/DL BUN (test code = 2208) 14 MG/DL CREATININE (test code = 2214) 0.52 MG/DL eGFR AMER. (test code 122 ML/MIN/1.73 = 14311) eGFR NON- AMER. (test 105 ML/MIN/1.73 code = 69347) CALC BUN/CREAT (test code = 27 RATIO [...] code = 2219) 27 U/L COMPREHENSIVE METABOLIC [id number] 00:00:00 Test Item Value Reference Range Interpretation Comments GLUCOSE (test code = 2217) 155 MG/DL BUN (test code = 2208) 14 MG/DL CREATININE (test code = 2214) 0.52 MG/DL eGFR AMER. (test code 122 ML/MIN/1.73 = 34730) eGFR NON- AMER. (test 105 ML/MIN/1.73 code = 40847) CALC BUN/CREAT (test code = 27 RATIO [...] THYROX. BIND. CAPAC. (test code 1.0 = 60547) T4 (THYROXINE) (test code = 4.7 UG/DL 2819) CORRECTED T4 (FTI) (test code = 4.7 UG/DL 2820) TSH, THIRD GENERATION (test code 0.201 UIU/ML = 2821) THYROID II PROFILE (T3U, T4, T7, TSH)2019 00:00:00 Test Item Value Reference Range Interpretation Comments T-UPTAKE (test code = 2817) 33.1 % THYROX. BIND. CAPAC. (test code 1.0 = 48318) T4 (THYROXINE) (test code = 4.7 UG/DL 2819) CORRECTED T4 (FTI) (test code = 4.7 UG/DL 2820) TSH, THIRD GENERATION (test code 0.201 UIU/ML = 2821) HEMOGLOBIN [id number] 00:00:00 Test Item Value Reference Range Interpretation Comments HEMOGLOBIN A1c (test code = 42220) 6.7 % HEMOGLOBIN [id number] 00:00:00 Test Item Value Reference Range Interpretation Comments HEMOGLOBIN A1c (test code = 67024) 6.7 % HEMOGLOBIN [id number] 00:00:00 Test Item Value Reference Range Interpretation Comments HEMOGLOBIN A1c (test code = 70065) 6.7 % LIPID [id number] 00:00:00 Test Item Value Reference Range Interpretation Comments CHOLESTEROL (test code = 2210) 267 MG/DL TRIGLYCERIDES (test code = 2232) 137 MG/DL HDL CHOLESTEROL (test code = 2220) 48 MG/DL CALC LDL CHOL (test code = 2237) 192 MG/DL RISK RATIO LDL/HDL (test code = 4.00 RATIO 2238) LIPID [id number] 00:00:00 Test Item Value Reference Range Interpretation Comments CHOLESTEROL (test code = 2210) 267 MG/DL TRIGLYCERIDES (test code = 2232) 137 MG/DL HDL CHOLESTEROL (test code = 2220) 48 MG/DL CALC LDL CHOL (test code = 2237) 192 MG/DL RISK RATIO LDL/HDL (test code = 4.00 RATIO 2238) COMPREHENSIVE METABOLIC [id number] 00:00:00 Test Item Value Reference Range Interpretation Comments GLUCOSE (test code = 2217) 155 MG/DL BUN (test code = 2208) 14 MG/DL CREATININE (test code = 2214) 0.52 MG/DL eGFR AMER. (test code 122 ML/MIN/1.73 = 96937) eGFR NON- AMER. (test 105 ML/MIN/1.73 code = 52609) CALC BUN/CREAT (test code = 27 RATIO [...] code = 2219) 27 U/L COMPREHENSIVE METABOLIC [id number] 00:00:00 Test Item Value Reference Range Interpretation Comments GLUCOSE (test code = 2217) 155 MG/DL BUN (test code = 2208) 14 MG/DL CREATININE (test code = 2214) 0.52 MG/DL eGFR AMER. (test code 122 ML/MIN/1.73 = 60713) eGFR NON- AMER. (test 105 ML/MIN/1.73 code = 81683) CALC BUN/CREAT (test code = 27 RATIO [...] THYROX. BIND. CAPAC. (test code 1.0 = 85179) T4 (THYROXINE) (test code = 4.7 UG/DL 2819) CORRECTED T4 (FTI) (test code = 4.7 UG/DL 2820) TSH, THIRD GENERATION (test code 0.201 UIU/ML = 2821) THYROID II PROFILE (T3U, T4, T7, TSH)2019 00:00:00 Test Item Value Reference Range Interpretation Comments T-UPTAKE (test code = 7) 33.1 % THYROX. BIND. CAPAC. (test code 1.0 = 36359) T4 (THYROXINE) (test code = 4.7 UG/DL 2819) CORRECTED T4 (FTI) (test code = 4.7 UG/DL 2820) TSH, THIRD GENERATION (test code 0.201 UIU/ML = 2821) HEMOGLOBIN [id number] 00:00:00 Test Item Value Reference Range Interpretation Comments HEMOGLOBIN A1c (test code = 16207) 6.7 % HEMOGLOBIN [id number] 00:00:00 Test Item Value Reference Range Interpretation Comments HEMOGLOBIN A1c (test code = 55676) 6.7 % LIPID [id number] 00:00:00 Test Item Value Reference Range Interpretation Comments CHOLESTEROL (test code = 2210) 267 MG/DL TRIGLYCERIDES (test code = 2232) 137 MG/DL HDL CHOLESTEROL (test code = 2220) 48 MG/DL CALC LDL CHOL (test code = 2237) 192 MG/DL RISK RATIO LDL/HDL (test code = 4.00 RATIO 2238) COMPREHENSIVE METABOLIC [id number] 00:00:00 Test Item Value Reference Range Interpretation Comments GLUCOSE (test code = 2217) 155 MG/DL BUN (test code = 2208) 14 MG/DL CREATININE (test code = 2214) 0.52 MG/DL eGFR AMER. (test code 122 ML/MIN/1.73 = 78081) eGFR NON- AMER. (test 105 ML/MIN/1.73 code = 63830) CALC BUN/CREAT (test code = 27 RATIO [...] THYROX. BIND. CAPAC. (test code 1.0 = 98923) T4 (THYROXINE) (test code = 4.7 UG/DL 2819) CORRECTED T4 (FTI) (test code = 4.7 UG/DL 2820) TSH, THIRD GENERATION (test code 0.201 UIU/ML = 2821) HEMOGLOBIN [id number] 00:00:00 Test Item Value Reference Range Interpretation Comments HEMOGLOBIN A1c (test code = 82366) 6.7 % HEMOGLOBIN [id number] 00:00:00 Test Item Value Reference Range Interpretation Comments HEMOGLOBIN A1c (test code = 21944) 6.7 % HEMOGLOBIN [id number] 00:00:00 Test Item Value Reference Range Interpretation Comments HEMOGLOBIN A1c (test code = 95591) 6.7 % LIPID [id number] 00:00:00 Test Item Value Reference Range Interpretation Comments CHOLESTEROL (test code = 2210) 267 MG/DL TRIGLYCERIDES (test code = 2232) 137 MG/DL HDL CHOLESTEROL (test code = 2220) 48 MG/DL CALC LDL CHOL (test code = 2237) 192 MG/DL RISK RATIO LDL/HDL (test code = 4.00 RATIO 2238) LIPID [id number] 00:00:00 Test Item Value Reference Range Interpretation Comments CHOLESTEROL (test code = 2210) 267 MG/DL TRIGLYCERIDES (test code = 2232) 137 MG/DL HDL CHOLESTEROL (test code = 2220) 48 MG/DL CALC LDL CHOL (test code = 2237) 192 MG/DL RISK RATIO LDL/HDL (test code = 4.00 RATIO 2238) COMPREHENSIVE METABOLIC [id number] 00:00:00 Test Item Value Reference Range Interpretation Comments GLUCOSE (test code = 2217) 155 MG/DL BUN (test code = 2208) 14 MG/DL CREATININE (test code = 2214) 0.52 MG/DL eGFR AMER. (test code 122 ML/MIN/1.73 = 26063) eGFR NON- AMER. (test 105 ML/MIN/1.73 code = 13448) CALC BUN/CREAT (test code = 27 RATIO [...] code = 2219) 27 U/L COMPREHENSIVE METABOLIC [id number] 00:00:00 Test Item Value Reference Range Interpretation Comments GLUCOSE (test code = 2217) 155 MG/DL BUN (test code = 2208) 14 MG/DL CREATININE (test code = 2214) 0.52 MG/DL eGFR AMER. (test code 122 ML/MIN/1.73 = 50988) eGFR NON- AMER. (test 105 ML/MIN/1.73 code = 10774) CALC BUN/CREAT (test code = 27 RATIO [...] THYROX. BIND. CAPAC. (test code 1.0 = 03429) T4 (THYROXINE) (test code = 4.7 UG/DL 2819) CORRECTED T4 (FTI) (test code = 4.7 UG/DL 2820) TSH, THIRD GENERATION (test code 0.201 UIU/ML = 2821) THYROID II PROFILE (T3U, T4, T7, TSH)2019 00:00:00 Test Item Value Reference Range Interpretation Comments T-UPTAKE (test code = 2817) 33.1 % THYROX. BIND. CAPAC. (test code 1.0 = 61312) T4 (THYROXINE) (test code = 4.7 UG/DL 2819) CORRECTED T4 (FTI) (test code = 4.7 UG/DL 2820) TSH, THIRD GENERATION (test code 0.201 UIU/ML = 2821) SARS-CoV-2 (COVID-19) by RT-PCR (HIGH RISK)2019-09-18 00:00:00 Test Item Value Reference Range Interpretation Comments SARS-CoV-2 INTERPRETATION (test NEGATIVE code = 01183) SOURCE (test code = 74157) NOT SPECIFIED SARS-CoV-2 (COVID-19) by RT-PCR (HIGH RISK)2019-09-18 00:00:00 Test Item Value Reference Range Interpretation Comments SARS-CoV-2 INTERPRETATION (test NEGATIVE code = 33683) SOURCE (test code = 18180) NOT SPECIFIED SARS-CoV-2 (COVID-19) by RT-PCR (HIGH RISK)2019-09-18 00:00:00 Test Item Value Reference Range Interpretation Comments SARS-CoV-2 INTERPRETATION (test NEGATIVE code = 36335) SOURCE (test code = 11672) NOT SPECIFIED SARS-CoV-2 (COVID-19) by RT-PCR (HIGH RISK)2019-09-18 00:00:00 Test Item Value Reference Range Interpretation Comments SARS-CoV-2 INTERPRETATION (test NEGATIVE code = 82238) SOURCE (test code = 29398) NOT SPECIFIED SARS-CoV-2 (COVID-19) by RT-PCR (HIGH RISK)2019-09-18 00:00:00 Test Item Value Reference Range Interpretation Comments SARS-CoV-2 INTERPRETATION (test NEGATIVE code = 02348) SOURCE (test code = 11625) NOT SPECIFIED SARS-CoV-2 (COVID-19) by RT-PCR (HIGH RISK)2019-09-18 00:00:00 Test Item Value Reference Range Interpretation Comments SARS-CoV-2 INTERPRETATION (test NEGATIVE code = 21068) SOURCE (test code = 11251) NOT SPECIFIED SARS-CoV-2 (COVID-19) by RT-PCR (HIGH RISK)2019-09-18 00:00:00 Test Item Value Reference Range Interpretation Comments SARS-CoV-2 INTERPRETATION (test NEGATIVE code = 89768) SOURCE (test code = 57880) NOT SPECIFIED [id number] 00:00:00 Test Item Value Reference Range Interpretation Comments TSH, THIRD GENERATION (test code 2.490 UIU/ML = 2821) [id number] 00:00:00 Test Item Value Reference Range Interpretation Comments TSH, THIRD GENERATION (test code 2.490 UIU/ML = 2821) [id number] 00:00:00 Test Item Value Reference Range Interpretation Comments TSH, THIRD GENERATION (test code 2.490 UIU/ML = 2821) HEMOGLOBIN [id number] 00:00:00 Test Item Value Reference Range Interpretation Comments HEMOGLOBIN A1c (test code = 23377) 6.4 % HEMOGLOBIN [id number] 00:00:00 Test Item Value Reference Range Interpretation Comments HEMOGLOBIN A1c (test code = 34936) 6.4 % HEMOGLOBIN [id number] 00:00:00 Test Item Value Reference Range Interpretation Comments HEMOGLOBIN A1c (test code = 00711) 6.4 % COMPREHENSIVE METABOLIC [id number] 00:00:00 Test Item Value Reference Range Interpretation Comments GLUCOSE (test code = 2217) 206 MG/DL BUN (test code = 2208) 23 MG/DL CREATININE (test code = 2214) 0.67 MG/DL eGFR AMER. (test code 112 ML/MIN/1.73 = 27609) eGFR NON- AMER. (test 97 ML/MIN/1.73 code = 89117) CALC BUN/CREAT (test code = 34 RATIO [...] code = 2219) 25 U/L COMPREHENSIVE METABOLIC [id number] 00:00:00 Test Item Value Reference Range Interpretation Comments GLUCOSE (test code = 2217) 206 MG/DL BUN (test code = 2208) 23 MG/DL CREATININE (test code = 2214) 0.67 MG/DL eGFR AMER. (test code 112 ML/MIN/1.73 = 90007) eGFR NON- AMER. (test 97 ML/MIN/1.73 code = 57473) CALC BUN/CREAT (test code = 34 RATIO [...] ALT (test code = 2219) 25 U/L [id number] 00:00:00 Test Item Value Reference Range Interpretation Comments TSH, THIRD GENERATION (test code 2.490 UIU/ML = 2821) [id number] 00:00:00 Test Item Value Reference Range Interpretation Comments TSH, THIRD GENERATION (test code 2.490 UIU/ML = 2821) [id number] 00:00:00 Test Item Value Reference Range Interpretation Comments TSH, THIRD GENERATION (test code 2.490 UIU/ML = 2821) HEMOGLOBIN [id number] 00:00:00 Test Item Value Reference Range Interpretation Comments HEMOGLOBIN A1c (test code = 04175) 6.4 % HEMOGLOBIN [id number] 00:00:00 Test Item Value Reference Range Interpretation Comments HEMOGLOBIN A1c (test code = 70845) 6.4 % HEMOGLOBIN [id number] 00:00:00 Test Item Value Reference Range Interpretation Comments HEMOGLOBIN A1c (test code = 42315) 6.4 % COMPREHENSIVE METABOLIC [id number] 00:00:00 Test Item Value Reference Range Interpretation Comments GLUCOSE (test code = 2217) 206 MG/DL BUN (test code = 2208) 23 MG/DL CREATININE (test code = 2214) 0.67 MG/DL eGFR AMER. (test code 112 ML/MIN/1.73 = 17621) eGFR NON- AMER. (test 97 ML/MIN/1.73 code = 74311) CALC BUN/CREAT (test code = 34 RATIO [...] code = 2219) 25 U/L COMPREHENSIVE METABOLIC [id number] 00:00:00 Test Item Value Reference Range Interpretation Comments GLUCOSE (test code = 2217) 206 MG/DL BUN (test code = 2208) 23 MG/DL CREATININE (test code = 2214) 0.67 MG/DL eGFR AMER. (test code 112 ML/MIN/1.73 = 81319) eGFR NON- AMER. (test 97 ML/MIN/1.73 code = 11937) CALC BUN/CREAT (test code = 34 RATIO [...] ALT (test code = 2219) 25 U/L [id number] 00:00:00 Test Item Value Reference Range Interpretation Comments TSH, THIRD GENERATION (test code 2.490 UIU/ML = 2821) [id number] 00:00:00 Test Item Value Reference Range Interpretation Comments TSH, THIRD GENERATION (test code 2.490 UIU/ML = 2821) HEMOGLOBIN [id number] 00:00:00 Test Item Value Reference Range Interpretation Comments HEMOGLOBIN A1c (test code = 60792) 6.4 % HEMOGLOBIN [id number] 00:00:00 Test Item Value Reference Range Interpretation Comments HEMOGLOBIN A1c (test code = 28357) 6.4 % COMPREHENSIVE METABOLIC [id number] 00:00:00 Test Item Value Reference Range Interpretation Comments GLUCOSE (test code = 2217) 206 MG/DL BUN (test code = 2208) 23 MG/DL CREATININE (test code = 2214) 0.67 MG/DL eGFR AMER. (test code 112 ML/MIN/1.73 = 64149) eGFR NON- AMER. (test 97 ML/MIN/1.73 code = 77060) CALC BUN/CREAT (test code = 34 RATIO [...] ALT (test code = 2219) 25 U/L [id number] 00:00:00 Test Item Value Reference Range Interpretation Comments TSH, THIRD GENERATION (test code 2.490 UIU/ML = 2821) [id number] 00:00:00 Test Item Value Reference Range Interpretation Comments TSH, THIRD GENERATION (test code 2.490 UIU/ML = 2821) [id number] 00:00:00 Test Item Value Reference Range Interpretation Comments TSH, THIRD GENERATION (test code 2.490 UIU/ML = 2821) HEMOGLOBIN [id number] 00:00:00 Test Item Value Reference Range Interpretation Comments HEMOGLOBIN A1c (test code = 02424) 6.4 % HEMOGLOBIN [id number] 00:00:00 Test Item Value Reference Range Interpretation Comments HEMOGLOBIN A1c (test code = 88988) 6.4 % HEMOGLOBIN [id number] 00:00:00 Test Item Value Reference Range Interpretation Comments HEMOGLOBIN A1c (test code = 48627) 6.4 % COMPREHENSIVE METABOLIC [id number] 00:00:00 Test Item Value Reference Range Interpretation Comments GLUCOSE (test code = 2217) 206 MG/DL BUN (test code = 2208) 23 MG/DL CREATININE (test code = 2214) 0.67 MG/DL eGFR AMER. (test code 112 ML/MIN/1.73 = 16233) eGFR NON- AMER. (test 97 ML/MIN/1.73 code = 67313) CALC BUN/CREAT (test code = 34 RATIO [...] code = 2219) 25 U/L COMPREHENSIVE METABOLIC [id number] 00:00:00 Test Item Value Reference Range Interpretation Comments GLUCOSE (test code = 2217) 206 MG/DL BUN (test code = 2208) 23 MG/DL CREATININE (test code = 2214) 0.67 MG/DL eGFR AMER. (test code 112 ML/MIN/1.73 = 50073) eGFR NON- AMER. (test 97 ML/MIN/1.73 code = 99390) CALC BUN/CREAT (test code = 34 RATIO [...] = 2219) 25 U/L VAGINAL PATHOGENS DNA [id number] 00:00:00 Test Item Value Reference Range Interpretation Comments MARK SPECIES (test code = ) NEGATIVE G. VAGINALIS (test code = 56573) NEGATIVE T. VAGINALIS (test code = 77441) NEGATIVE VAGINAL PATHOGENS DNA [id number] 00:00:00 Test Item Value Reference Range Interpretation Comments MARK SPECIES (test code = 46395) NEGATIVE G. VAGINALIS (test code = 34295) NEGATIVE T. VAGINALIS (test code = 97933) NEGATIVE VAGINAL PATHOGENS DNA [id number] 00:00:00 Test Item Value Reference Range Interpretation Comments MARK SPECIES (test code = 54448) NEGATIVE G. VAGINALIS (test code = 04369) NEGATIVE T. VAGINALIS (test code = 39996) NEGATIVE VAGINAL PATHOGENS DNA [id number] 00:00:00 Test Item Value Reference Range Interpretation Comments MARK SPECIES (test code = 29253) NEGATIVE G. VAGINALIS (test code = 37983) NEGATIVE T. VAGINALIS (test code = 16612) NEGATIVE VAGINAL PATHOGENS DNA [id number] 00:00:00 Test Item Value Reference Range Interpretation Comments MARK SPECIES (test code = 69653) NEGATIVE G. VAGINALIS (test code = 43713) NEGATIVE T. VAGINALIS (test code = 26339) NEGATIVE VAGINAL PATHOGENS DNA [id number] 00:00:00 Test Item Value Reference Range Interpretation Comments MARK SPECIES (test code = 13332) NEGATIVE G. VAGINALIS (test code = 22671) NEGATIVE T. VAGINALIS (test code = 11393) NEGATIVE VAGINAL PATHOGENS DNA [id number] 00:00:00 Test Item Value Reference Range Interpretation Comments MARK SPECIES (test code = 25645) NEGATIVE G. VAGINALIS (test code = 97537) NEGATIVE T. VAGINALIS (test code = 16849) NEGATIVE HEMOGLOBIN A1c [ADDED]2018-12-01 00:00:00 Test Item Value Reference Range Interpretation Comments HEMOGLOBIN A1c (test code = 92417) 6.7 % HEMOGLOBIN A1c [ADDED]2018-12-01 00:00:00 Test Item Value Reference Range Interpretation Comments HEMOGLOBIN A1c (test code = 09115) 6.7 % HEMOGLOBIN A1c [ADDED]2018-12-01 00:00:00 Test Item Value Reference Range Interpretation Comments HEMOGLOBIN A1c (test code = 54177) 6.7 % COMPREHENSIVE METABOLIC PANEL [ADDED]2018-12-01 00:00:00 Test Item Value Reference Range Interpretation Comments GLUCOSE (test code = 2217) 136 MG/DL BUN (test code = 2208) 15 MG/DL CREATININE (test code = 2214) 0.64 MG/DL eGFR AMER. (test code 115 ML/MIN/1.73 = 73997) eGFR NON- AMER. (test 99 ML/MIN/1.73 code = 19725) CALC BUN/CREAT (test code = 23 RATIO [...] eGFR AMER. (test code 115 ML/MIN/1.73 = 78199) eGFR NON- AMER. (test 99 ML/MIN/1.73 code = 75076) CALC BUN/CREAT (test code = 23 RATIO [...] Interpretation Comments HEMOGLOBIN A1c (test code = 31554) 6.7 % HEMOGLOBIN A1c [ADDED]2018-12-01 00:00:00 Test Item Value Reference Range Interpretation Comments HEMOGLOBIN A1c (test code = 41332) 6.7 % HEMOGLOBIN A1c [ADDED]2018-12-01 00:00:00 Test Item Value Reference Range Interpretation Comments HEMOGLOBIN A1c (test code = 34492) 6.7 % COMPREHENSIVE METABOLIC PANEL [ADDED]2018-12-01 00:00:00 Test Item Value Reference Range Interpretation Comments GLUCOSE (test code = 2217) 136 MG/DL BUN (test code = 2208) 15 MG/DL CREATININE (test code = 2214) 0.64 MG/DL eGFR AMER. (test code 115 ML/MIN/1.73 = 01582) eGFR NON- AMER. (test 99 ML/MIN/1.73 code = 40700) CALC BUN/CREAT (test code = 23 RATIO [...] eGFR AMER. (test code 115 ML/MIN/1.73 = 82942) eGFR NON- AMER. (test 99 ML/MIN/1.73 code = 78837) CALC BUN/CREAT (test code = 23 RATIO [...] Interpretation Comments HEMOGLOBIN A1c (test code = 26125) 6.7 % HEMOGLOBIN A1c [ADDED]2018-12-01 00:00:00 Test Item Value Reference Range Interpretation Comments HEMOGLOBIN A1c (test code = 45598) 6.7 % COMPREHENSIVE METABOLIC PANEL [ADDED]2018-12-01 00:00:00 Test Item Value Reference Range Interpretation Comments GLUCOSE (test code = 2217) 136 MG/DL BUN (test code = 2208) 15 MG/DL CREATININE (test code = 2214) 0.64 MG/DL eGFR AMER. (test code 115 ML/MIN/1.73 = 12217) eGFR NON- AMER. (test 99 ML/MIN/1.73 code = 85478) CALC BUN/CREAT (test code = 23 RATIO [...] Interpretation Comments HEMOGLOBIN A1c (test code = 53170) 6.7 % HEMOGLOBIN A1c [ADDED]2018-12-01 00:00:00 Test Item Value Reference Range Interpretation Comments HEMOGLOBIN A1c (test code = 72548) 6.7 % HEMOGLOBIN A1c [ADDED]2018-12-01 00:00:00 Test Item Value Reference Range Interpretation Comments HEMOGLOBIN A1c (test code = 40448) 6.7 % COMPREHENSIVE METABOLIC PANEL [ADDED]2018-12-01 00:00:00 Test Item Value Reference Range Interpretation Comments GLUCOSE (test code = 2217) 136 MG/DL BUN (test code = 2208) 15 MG/DL CREATININE (test code = 2214) 0.64 MG/DL eGFR AMER. (test code 115 ML/MIN/1.73 = 86313) eGFR NON- AMER. (test 99 ML/MIN/1.73 code = 10236) CALC BUN/CREAT (test code = 23 RATIO [...] eGFR AMER. (test code 115 ML/MIN/1.73 = 42651) eGFR NON- AMER. (test 99 ML/MIN/1.73 code = 79050) CALC BUN/CREAT (test code = 23 RATIO [...] code 1.280 UIU/ML = 2821) CBC W/AUTO [id number] 00:00:00 Test Item Value Reference Range Interpretation [...] code = 1015) 346 K/UL CBC W/AUTO [id number] 00:00:00 Test Item Value Reference Range Interpretation [...] code = 1015) 346 K/UL CBC W/AUTO [id number] 00:00:00 Test Item Value Reference Range Interpretation [...] (test code = 1015) 346 K/UL HEMOGLOBIN [id number] 00:00:00 Test Item Value Reference Range Interpretation Comments HEMOGLOBIN A1c (test code = 36552) 5.9 % HEMOGLOBIN [id number] 00:00:00 Test Item Value Reference Range Interpretation Comments HEMOGLOBIN A1c (test code = 76258) 5.9 % HEMOGLOBIN [id number] 00:00:00 Test Item Value Reference Range Interpretation Comments HEMOGLOBIN A1c (test code = 97930) 5.9 % LIPID [id number] 00:00:00 Test Item Value Reference Range Interpretation Comments CHOLESTEROL (test code = 2210) 318 MG/DL TRIGLYCERIDES (test code = 2232) 263 MG/DL HDL CHOLESTEROL (test code = 2220) 51 MG/DL CALC LDL CHOL (test code = 2237) 214 MG/DL RISK RATIO LDL/HDL (test code = 4.20 RATIO 2238) LIPID [id number] 00:00:00 Test Item Value Reference Range Interpretation Comments CHOLESTEROL (test code = 2210) 318 MG/DL TRIGLYCERIDES (test code = 2232) 263 MG/DL HDL CHOLESTEROL (test code = 2220) 51 MG/DL CALC LDL CHOL (test code = 2237) 214 MG/DL RISK RATIO LDL/HDL (test code = 4.20 RATIO 2238) COMPREHENSIVE METABOLIC [id number] 00:00:00 Test Item Value Reference Range Interpretation Comments GLUCOSE (test code = 2217) 113 MG/DL BUN (test code = 2208) 18 MG/DL CREATININE (test code = 2214) 0.70 MG/DL eGFR AMER. (test code 111 ML/MIN/1.73 = 89993) eGFR NON- AMER. (test 96 ML/MIN/1.73 code = 58231) CALC BUN/CREAT (test code = 26 RATIO [...] code = 2219) 31 U/L COMPREHENSIVE METABOLIC [id number] 00:00:00 Test Item Value Reference Range Interpretation Comments GLUCOSE (test code = 2217) 113 MG/DL BUN (test code = 2208) 18 MG/DL CREATININE (test code = 2214) 0.70 MG/DL eGFR AMER. (test code 111 ML/MIN/1.73 = 83247) eGFR NON- AMER. (test 96 ML/MIN/1.73 code = 72908) CALC BUN/CREAT (test code = 26 RATIO [...] ALT (test code = 2219) 31 U/L [id number] 00:00:00 Test Item Value Reference Range Interpretation Comments TSH, THIRD GENERATION (test code 2.520 UIU/ML = 2821) [id number] 00:00:00 Test Item Value Reference Range Interpretation Comments TSH, THIRD GENERATION (test code 2.520 UIU/ML = 2821) [id number] 00:00:00 Test Item Value Reference Range Interpretation Comments TSH, THIRD GENERATION (test code 2.520 UIU/ML = 2821) CBC W/AUTO [id number] 00:00:00 Test Item Value Reference Range Interpretation [...] code = 1015) 346 K/UL CBC W/AUTO [id number] 00:00:00 Test Item Value Reference Range Interpretation [...] code = 1015) 346 K/UL CBC W/AUTO [id number] 00:00:00 Test Item Value Reference Range Interpretation [...] (test code = 1015) 346 K/UL HEMOGLOBIN [id number] 00:00:00 Test Item Value Reference Range Interpretation Comments HEMOGLOBIN A1c (test code = 46570) 5.9 % HEMOGLOBIN [id number] 00:00:00 Test Item Value Reference Range Interpretation Comments HEMOGLOBIN A1c (test code = 33440) 5.9 % HEMOGLOBIN [id number] 00:00:00 Test Item Value Reference Range Interpretation Comments HEMOGLOBIN A1c (test code = 05353) 5.9 % LIPID [id number] 00:00:00 Test Item Value Reference Range Interpretation Comments CHOLESTEROL (test code = 2210) 318 MG/DL TRIGLYCERIDES (test code = 2232) 263 MG/DL HDL CHOLESTEROL (test code = 2220) 51 MG/DL CALC LDL CHOL (test code = 2237) 214 MG/DL RISK RATIO LDL/HDL (test code = 4.20 RATIO 2238) LIPID [id number] 00:00:00 Test Item Value Reference Range Interpretation Comments CHOLESTEROL (test code = 2210) 318 MG/DL TRIGLYCERIDES (test code = 2232) 263 MG/DL HDL CHOLESTEROL (test code = 2220) 51 MG/DL CALC LDL CHOL (test code = 2237) 214 MG/DL RISK RATIO LDL/HDL (test code = 4.20 RATIO 2238) COMPREHENSIVE METABOLIC [id number] 00:00:00 Test Item Value Reference Range Interpretation Comments GLUCOSE (test code = 2217) 113 MG/DL BUN (test code = 2208) 18 MG/DL CREATININE (test code = 2214) 0.70 MG/DL eGFR AMER. (test code 111 ML/MIN/1.73 = 07943) eGFR NON- AMER. (test 96 ML/MIN/1.73 code = 35234) CALC BUN/CREAT (test code = 26 RATIO [...] code = 2219) 31 U/L COMPREHENSIVE METABOLIC [id number] 00:00:00 Test Item Value Reference Range Interpretation Comments GLUCOSE (test code = 2217) 113 MG/DL BUN (test code = 2208) 18 MG/DL CREATININE (test code = 2214) 0.70 MG/DL eGFR AMER. (test code 111 ML/MIN/1.73 = 58270) eGFR NON- AMER. (test 96 ML/MIN/1.73 code = 57320) CALC BUN/CREAT (test code = 26 RATIO [...] ALT (test code = 2219) 31 U/L [id number] 00:00:00 Test Item Value Reference Range Interpretation Comments TSH, THIRD GENERATION (test code 2.520 UIU/ML = 2821) [id number] 00:00:00 Test Item Value Reference Range Interpretation Comments TSH, THIRD GENERATION (test code 2.520 UIU/ML = 2821) [id number] 00:00:00 Test Item Value Reference Range Interpretation Comments TSH, THIRD GENERATION (test code 2.520 UIU/ML = 2821) CBC W/AUTO [id number] 00:00:00 Test Item Value Reference Range Interpretation [...] code = 1015) 346 K/UL CBC W/AUTO [id number] 00:00:00 Test Item Value Reference Range Interpretation [...] (test code = 1015) 346 K/UL HEMOGLOBIN [id number] 00:00:00 Test Item Value Reference Range Interpretation Comments HEMOGLOBIN A1c (test code = 24421) 5.9 % HEMOGLOBIN [id number] 00:00:00 Test Item Value Reference Range Interpretation Comments HEMOGLOBIN A1c (test code = 99676) 5.9 % LIPID [id number] 00:00:00 Test Item Value Reference Range Interpretation Comments CHOLESTEROL (test code = 2210) 318 MG/DL TRIGLYCERIDES (test code = 2232) 263 MG/DL HDL CHOLESTEROL (test code = 2220) 51 MG/DL CALC LDL CHOL (test code = 2237) 214 MG/DL RISK RATIO LDL/HDL (test code = 4.20 RATIO 2238) COMPREHENSIVE METABOLIC [id number] 00:00:00 Test Item Value Reference Range Interpretation Comments GLUCOSE (test code = 2217) 113 MG/DL BUN (test code = 2208) 18 MG/DL CREATININE (test code = 2214) 0.70 MG/DL eGFR AMER. (test code 111 ML/MIN/1.73 = 81006) eGFR NON- AMER. (test 96 ML/MIN/1.73 code = 72170) CALC BUN/CREAT (test code = 26 RATIO [...] ALT (test code = 2219) 31 U/L [id number] 00:00:00 Test Item Value Reference Range Interpretation Comments TSH, THIRD GENERATION (test code 2.520 UIU/ML = 2821) [id number] 00:00:00 Test Item Value Reference Range Interpretation Comments TSH, THIRD GENERATION (test code 2.520 UIU/ML = 2821) CBC W/AUTO [id number] 00:00:00 Test Item Value Reference Range Interpretation [...] code = 1015) 346 K/UL CBC W/AUTO [id number] 00:00:00 Test Item Value Reference Range Interpretation [...] code = 1015) 346 K/UL CBC W/AUTO [id number] 00:00:00 Test Item Value Reference Range Interpretation [...] (test code = 1015) 346 K/UL HEMOGLOBIN [id number] 00:00:00 Test Item Value Reference Range Interpretation Comments HEMOGLOBIN A1c (test code = 90619) 5.9 % HEMOGLOBIN [id number] 00:00:00 Test Item Value Reference Range Interpretation Comments HEMOGLOBIN A1c (test code = 04936) 5.9 % HEMOGLOBIN [id number] 00:00:00 Test Item Value Reference Range Interpretation Comments HEMOGLOBIN A1c (test code = 23610) 5.9 % LIPID [id number] 00:00:00 Test Item Value Reference Range Interpretation Comments CHOLESTEROL (test code = 2210) 318 MG/DL TRIGLYCERIDES (test code = 2232) 263 MG/DL HDL CHOLESTEROL (test code = 2220) 51 MG/DL CALC LDL CHOL (test code = 2237) 214 MG/DL RISK RATIO LDL/HDL (test code = 4.20 RATIO 2238) LIPID [id number] 00:00:00 Test Item Value Reference Range Interpretation Comments CHOLESTEROL (test code = 2210) 318 MG/DL TRIGLYCERIDES (test code = 2232) 263 MG/DL HDL CHOLESTEROL (test code = 2220) 51 MG/DL CALC LDL CHOL (test code = 2237) 214 MG/DL RISK RATIO LDL/HDL (test code = 4.20 RATIO 2238) COMPREHENSIVE METABOLIC [id number] 00:00:00 Test Item Value Reference Range Interpretation Comments GLUCOSE (test code = 2217) 113 MG/DL BUN (test code = 2208) 18 MG/DL CREATININE (test code = 2214) 0.70 MG/DL eGFR AMER. (test code 111 ML/MIN/1.73 = 75079) eGFR NON- AMER. (test 96 ML/MIN/1.73 code = 33761) CALC BUN/CREAT (test code = 26 RATIO [...] code = 2219) 31 U/L COMPREHENSIVE METABOLIC [id number] 00:00:00 Test Item Value Reference Range Interpretation Comments GLUCOSE (test code = 2217) 113 MG/DL BUN (test code = 2208) 18 MG/DL CREATININE (test code = 2214) 0.70 MG/DL eGFR AMER. (test code 111 ML/MIN/1.73 = 47100) eGFR NON- AMER. (test 96 ML/MIN/1.73 code = 06219) CALC BUN/CREAT (test code = 26 RATIO [...] ALT (test code = 2219) 31 U/L [id number] 00:00:00 Test Item Value Reference Range Interpretation Comments TSH, THIRD GENERATION (test code 2.520 UIU/ML = 2821) [id number] 00:00:00 Test Item Value Reference Range Interpretation Comments TSH, THIRD GENERATION (test code 2.520 UIU/ML = 2821) [id number] 00:00:00 Test Item Value Reference Range Interpretation Comments TSH, THIRD GENERATION (test code 2.520 UIU/ML = 2821) CULTURE, [id number] 00:00:00 Test Item Value Reference Range Interpretation Comments CULTURE, URINE (test SPECIMEN NUMBER: code = 82066) [id number] CULTURE, [id number] 00:00:00 Test Item Value Reference Range Interpretation Comments CULTURE, URINE (test SPECIMEN NUMBER: code = 74909) [id number] CULTURE, [id number] 00:00:00 Test Item Value Reference Range Interpretation Comments CULTURE, URINE (test SPECIMEN NUMBER: code = 80506) [id number] CULTURE, [id number] 00:00:00 Test Item Value Reference Range Interpretation Comments CULTURE, URINE (test SPECIMEN NUMBER: code = 42925) [id number] CULTURE, [id number] 00:00:00 Test Item Value Reference Range Interpretation Comments CULTURE, URINE (test SPECIMEN NUMBER: code = 93503) [id number] CULTURE, [id number] 00:00:00 Test Item Value Reference Range Interpretation Comments CULTURE, URINE (test SPECIMEN NUMBER: code = 24843) [id number] CULTURE, [id number] 00:00:00 Test Item Value Reference Range Interpretation Comments CULTURE, URINE (test SPECIMEN NUMBER: code = 08362) [id number] CULTURE, [id number] 00:00:00 Test Item Value Reference Range Interpretation Comments CULTURE, URINE (test SPECIMEN NUMBER: code = 54672) [id number] CULTURE, [id number] 00:00:00 Test Item Value Reference Range Interpretation Comments CULTURE, URINE (test SPECIMEN NUMBER: code = 03316) [id number] CULTURE, [id number] 00:00:00 Test Item Value Reference Range Interpretation Comments CULTURE, URINE (test SPECIMEN NUMBER: code = 25675) [id number] CULTURE, [id number] 00:00:00 Test Item Value Reference Range Interpretation Comments CULTURE, URINE (test SPECIMEN NUMBER: code = 83963) [id number] CULTURE, [id number] 00:00:00 Test Item Value Reference Range Interpretation Comments CULTURE, URINE (test SPECIMEN NUMBER: code = 10433) [id number] CULTURE, [id number] 00:00:00 Test Item Value Reference Range Interpretation Comments CULTURE, URINE (test SPECIMEN NUMBER: code = 04217) [id number] CULTURE, [id number] 00:00:00 Test Item Value Reference Range Interpretation Comments CULTURE, URINE (test SPECIMEN NUMBER: code = 88880) [id number] BASIC METABOLIC [id number] 00:00:00 Test Item Value Reference Range Interpretation Comments GLUCOSE (test code = 2217) 135 MG/DL BUN (test code = 2208) 25 MG/DL CREATININE (test code = 2214) 0.76 MG/DL eGFR AMER. (test code 101 ML/MIN/1.73 = 79499) eGFR NON- AMER. (test 87 ML/MIN/1.73 code = 49828) SODIUM (test code = 2231) 139 MEQ/L POTASSIUM (test code = 2228) 4.7 MEQ/L CHLORIDE (test code = 2215) 99 MEQ/L CARBON DIOXIDE (test code = 26 MEQ/L 2206) CALCIUM (test code = 2209) 9.4 MG/DL BASIC METABOLIC [id number] 00:00:00 Test Item Value Reference Range Interpretation Comments GLUCOSE (test code = 2217) 135 MG/DL BUN (test code = 2208) 25 MG/DL CREATININE (test code = 2214) 0.76 MG/DL eGFR AMER. (test code 101 ML/MIN/1.73 = 64583) eGFR NON- AMER. (test 87 ML/MIN/1.73 code = 64298) SODIUM (test code = 2231) 139 MEQ/L POTASSIUM (test code = 2228) 4.7 MEQ/L CHLORIDE (test code = 2215) 99 MEQ/L CARBON DIOXIDE (test code = 26 MEQ/L 2206) CALCIUM (test code = 2209) 9.4 MG/DL LIPID [id number] 00:00:00 Test Item Value Reference Range Interpretation Comments CHOLESTEROL (test code = 2210) 262 MG/DL TRIGLYCERIDES (test code = 2232) 300 MG/DL HDL CHOLESTEROL (test code = 2220) 36 MG/DL CALC LDL CHOL (test code = 2237) 166 MG/DL RISK RATIO LDL/HDL (test code = 4.61 RATIO 2238) LIPID [id number] 00:00:00 Test Item Value Reference Range Interpretation Comments CHOLESTEROL (test code = 2210) 262 MG/DL TRIGLYCERIDES (test code = 2232) 300 MG/DL HDL CHOLESTEROL (test code = 2220) 36 MG/DL CALC LDL CHOL (test code = 2237) 166 MG/DL RISK RATIO LDL/HDL (test code = 4.61 RATIO 2238) HEMOGLOBIN [id number] 00:00:00 Test Item Value Reference Range Interpretation Comments HEMOGLOBIN A1c (test code = 50762) 6.2 % HEMOGLOBIN [id number] 00:00:00 Test Item Value Reference Range Interpretation Comments HEMOGLOBIN A1c (test code = 10198) 6.2 % HEMOGLOBIN [id number] 00:00:00 Test Item Value Reference Range Interpretation Comments HEMOGLOBIN A1c (test code = 05432) 6.2 % [id number] 00:00:00 Test Item Value Reference Range Interpretation Comments TSH, THIRD GENERATION (test code 0.988 UIU/ML = 2821) [id number] 00:00:00 Test Item Value Reference Range Interpretation Comments TSH, THIRD GENERATION (test code 0.988 UIU/ML = 2821) [id number] 00:00:00 Test Item Value Reference Range Interpretation Comments TSH, THIRD GENERATION (test code 0.988 UIU/ML = 2821) BASIC METABOLIC [id number] 00:00:00 Test Item Value Reference Range Interpretation Comments GLUCOSE (test code = 2217) 135 MG/DL BUN (test code = 2208) 25 MG/DL CREATININE (test code = 2214) 0.76 MG/DL eGFR AMER. (test code 101 ML/MIN/1.73 = 97188) eGFR NON- AMER. (test 87 ML/MIN/1.73 code = 77973) SODIUM (test code = 2231) 139 MEQ/L POTASSIUM (test code = 2228) 4.7 MEQ/L CHLORIDE (test code = 2215) 99 MEQ/L CARBON DIOXIDE (test code = 26 MEQ/L 2206) CALCIUM (test code = 2209) 9.4 MG/DL BASIC METABOLIC [id number] 00:00:00 Test Item Value Reference Range Interpretation Comments GLUCOSE (test code = 2217) 135 MG/DL BUN (test code = 2208) 25 MG/DL CREATININE (test code = 2214) 0.76 MG/DL eGFR AMER. (test code 101 ML/MIN/1.73 = 28992) eGFR NON- AMER. (test 87 ML/MIN/1.73 code = 39276) SODIUM (test code = 2231) 139 MEQ/L POTASSIUM (test code = 2228) 4.7 MEQ/L CHLORIDE (test code = 2215) 99 MEQ/L CARBON DIOXIDE (test code = 26 MEQ/L 2206) CALCIUM (test code = 2209) 9.4 MG/DL LIPID [id number] 00:00:00 Test Item Value Reference Range Interpretation Comments CHOLESTEROL (test code = 2210) 262 MG/DL TRIGLYCERIDES (test code = 2232) 300 MG/DL HDL CHOLESTEROL (test code = 2220) 36 MG/DL CALC LDL CHOL (test code = 2237) 166 MG/DL RISK RATIO LDL/HDL (test code = 4.61 RATIO 2238) LIPID [id number] 00:00:00 Test Item Value Reference Range Interpretation Comments CHOLESTEROL (test code = 2210) 262 MG/DL TRIGLYCERIDES (test code = 2232) 300 MG/DL HDL CHOLESTEROL (test code = 2220) 36 MG/DL CALC LDL CHOL (test code = 2237) 166 MG/DL RISK RATIO LDL/HDL (test code = 4.61 RATIO 2238) HEMOGLOBIN [id number] 00:00:00 Test Item Value Reference Range Interpretation Comments HEMOGLOBIN A1c (test code = 35649) 6.2 % HEMOGLOBIN [id number] 00:00:00 Test Item Value Reference Range Interpretation Comments HEMOGLOBIN A1c (test code = 47474) 6.2 % HEMOGLOBIN [id number] 00:00:00 Test Item Value Reference Range Interpretation Comments HEMOGLOBIN A1c (test code = 24453) 6.2 % [id number] 00:00:00 Test Item Value Reference Range Interpretation Comments TSH, THIRD GENERATION (test code 0.988 UIU/ML = 2821) [id number] 00:00:00 Test Item Value Reference Range Interpretation Comments TSH, THIRD GENERATION (test code 0.988 UIU/ML = 2821) [id number] 00:00:00 Test Item Value Reference Range Interpretation Comments TSH, THIRD GENERATION (test code 0.988 UIU/ML = 2821) BASIC METABOLIC [id number] 00:00:00 Test Item Value Reference Range Interpretation Comments GLUCOSE (test code = 2217) 135 MG/DL BUN (test code = 2208) 25 MG/DL CREATININE (test code = 2214) 0.76 MG/DL eGFR AMER. (test code 101 ML/MIN/1.73 = 63845) eGFR NON- AMER. (test 87 ML/MIN/1.73 code = 21037) SODIUM (test code = 2231) 139 MEQ/L POTASSIUM (test code = 2228) 4.7 MEQ/L CHLORIDE (test code = 2215) 99 MEQ/L CARBON DIOXIDE (test code = 26 MEQ/L 2206) CALCIUM (test code = 2209) 9.4 MG/DL LIPID [id number] 00:00:00 Test Item Value Reference Range Interpretation Comments CHOLESTEROL (test code = 2210) 262 MG/DL TRIGLYCERIDES (test code = 2232) 300 MG/DL HDL CHOLESTEROL (test code = 2220) 36 MG/DL CALC LDL CHOL (test code = 2237) 166 MG/DL RISK RATIO LDL/HDL (test code = 4.61 RATIO 2238) HEMOGLOBIN [id number] 00:00:00 Test Item Value Reference Range Interpretation Comments HEMOGLOBIN A1c (test code = 46794) 6.2 % HEMOGLOBIN [id number] 00:00:00 Test Item Value Reference Range Interpretation Comments HEMOGLOBIN A1c (test code = 73714) 6.2 % [id number] 00:00:00 Test Item Value Reference Range Interpretation Comments TSH, THIRD GENERATION (test code 0.988 UIU/ML = 2821) [id number] 00:00:00 Test Item Value Reference Range Interpretation Comments TSH, THIRD GENERATION (test code 0.988 UIU/ML = 2821) BASIC METABOLIC [id number] 00:00:00 Test Item Value Reference Range Interpretation Comments GLUCOSE (test code = 2217) 135 MG/DL BUN (test code = 2208) 25 MG/DL CREATININE (test code = 2214) 0.76 MG/DL eGFR AMER. (test code 101 ML/MIN/1.73 = 51503) eGFR NON- AMER. (test 87 ML/MIN/1.73 code = 86937) SODIUM (test code = 2231) 139 MEQ/L POTASSIUM (test code = 2228) 4.7 MEQ/L CHLORIDE (test code = 2215) 99 MEQ/L CARBON DIOXIDE (test code = 26 MEQ/L 2206) CALCIUM (test code = 2209) 9.4 MG/DL BASIC METABOLIC [id number] 00:00:00 Test Item Value Reference Range Interpretation Comments GLUCOSE (test code = 2217) 135 MG/DL BUN (test code = 2208) 25 MG/DL CREATININE (test code = 2214) 0.76 MG/DL eGFR AMER. (test code 101 ML/MIN/1.73 = 15724) eGFR NON- AMER. (test 87 ML/MIN/1.73 code = 24965) SODIUM (test code = 2231) 139 MEQ/L POTASSIUM (test code = 2228) 4.7 MEQ/L CHLORIDE (test code = 2215) 99 MEQ/L CARBON DIOXIDE (test code = 26 MEQ/L 2206) CALCIUM (test code = 2209) 9.4 MG/DL LIPID [id number] 00:00:00 Test Item Value Reference Range Interpretation Comments CHOLESTEROL (test code = 2210) 262 MG/DL TRIGLYCERIDES (test code = 2232) 300 MG/DL HDL CHOLESTEROL (test code = 2220) 36 MG/DL CALC LDL CHOL (test code = 2237) 166 MG/DL RISK RATIO LDL/HDL (test code = 4.61 RATIO 2238) LIPID [id number] 00:00:00 Test Item Value Reference Range Interpretation Comments CHOLESTEROL (test code = 2210) 262 MG/DL TRIGLYCERIDES (test code = 2232) 300 MG/DL HDL CHOLESTEROL (test code = 2220) 36 MG/DL CALC LDL CHOL (test code = 2237) 166 MG/DL RISK RATIO LDL/HDL (test code = 4.61 RATIO 2238) HEMOGLOBIN [id number] 00:00:00 Test Item Value Reference Range Interpretation Comments HEMOGLOBIN A1c (test code = 83266) 6.2 % HEMOGLOBIN [id number] 00:00:00 Test Item Value Reference Range Interpretation Comments HEMOGLOBIN A1c (test code = 36693) 6.2 % HEMOGLOBIN [id number] 00:00:00 Test Item Value Reference Range Interpretation Comments HEMOGLOBIN A1c (test code = 11449) 6.2 % [id number] 00:00:00 Test Item Value Reference Range Interpretation Comments TSH, THIRD GENERATION (test code 0.988 UIU/ML = 2821) [id number] 00:00:00 Test Item Value Reference Range Interpretation Comments TSH, THIRD GENERATION (test code 0.988 UIU/ML = 2821) [id number] 00:00:00 Test Item Value Reference Range Interpretation Comments TSH, THIRD GENERATION (test code 0.988 UIU/ML = 2821) COMPREHENSIVE METABOLIC [id number] 00:00:00 Test Item Value Reference Range Interpretation Comments GLUCOSE (test code = 2217) 109 MG/DL BUN (test code = 2208) 25 MG/DL CREATININE (test code = 2214) 0.78 MG/DL eGFR AMER. (test code 98 ML/MIN/1.73 = 96169) eGFR NON- AMER. (test 84 ML/MIN/1.73 code = 51160) CALC BUN/CREAT (test code = 32 RATIO [...] code = 2219) 25 U/L COMPREHENSIVE METABOLIC [id number] 00:00:00 Test Item Value Reference Range Interpretation Comments GLUCOSE (test code = 2217) 109 MG/DL BUN (test code = 2208) 25 MG/DL CREATININE (test code = 2214) 0.78 MG/DL eGFR AMER. (test code 98 ML/MIN/1.73 = 61672) eGFR NON- AMER. (test 84 ML/MIN/1.73 code = 44290) CALC BUN/CREAT (test code = 32 RATIO [...] (test code = 2219) 25 U/L LIPID [id number] 00:00:00 Test Item Value Reference Range Interpretation Comments CHOLESTEROL (test code = 2210) 295 MG/DL TRIGLYCERIDES (test code = 2232) 218 MG/DL HDL CHOLESTEROL (test code = 2220) 46 MG/DL CALC LDL CHOL (test code = 2237) 205 MG/DL RISK RATIO LDL/HDL (test code = 4.47 RATIO 2238) LIPID [id number] 00:00:00 Test Item Value Reference Range Interpretation Comments CHOLESTEROL (test code = 2210) 295 MG/DL TRIGLYCERIDES (test code = 2232) 218 MG/DL HDL CHOLESTEROL (test code = 2220) 46 MG/DL CALC LDL CHOL (test code = 2237) 205 MG/DL RISK RATIO LDL/HDL (test code = 4.47 RATIO 2238) HEMOGLOBIN [id number] 00:00:00 Test Item Value Reference Range Interpretation Comments HEMOGLOBIN A1c (test code = 34839) 7.0 % HEMOGLOBIN [id number] 00:00:00 Test Item Value Reference Range Interpretation Comments HEMOGLOBIN A1c (test code = 05354) 7.0 % HEMOGLOBIN [id number] 00:00:00 Test Item Value Reference Range Interpretation Comments HEMOGLOBIN A1c (test code = 76500) 7.0 % [id number] 00:00:00 Test Item Value Reference Range Interpretation Comments TSH, THIRD GENERATION (test code 0.565 UIU/ML = 2821) [id number] 00:00:00 Test Item Value Reference Range Interpretation Comments TSH, THIRD GENERATION (test code 0.565 UIU/ML = 2821) [id number] 00:00:00 Test Item Value Reference Range Interpretation Comments TSH, THIRD GENERATION (test code 0.565 UIU/ML = 2821) COMPREHENSIVE METABOLIC [id number] 00:00:00 Test Item Value Reference Range Interpretation Comments GLUCOSE (test code = 2217) 109 MG/DL BUN (test code = 2208) 25 MG/DL CREATININE (test code = 2214) 0.78 MG/DL eGFR AMER. (test code 98 ML/MIN/1.73 = 65233) eGFR NON- AMER. (test 84 ML/MIN/1.73 code = 31344) CALC BUN/CREAT (test code = 32 RATIO [...] code = 2219) 25 U/L COMPREHENSIVE METABOLIC [id number] 00:00:00 Test Item Value Reference Range Interpretation Comments GLUCOSE (test code = 2217) 109 MG/DL BUN (test code = 2208) 25 MG/DL CREATININE (test code = 2214) 0.78 MG/DL eGFR AMER. (test code 98 ML/MIN/1.73 = 95767) eGFR NON- AMER. (test 84 ML/MIN/1.73 code = 54004) CALC BUN/CREAT (test code = 32 RATIO [...] (test code = 2219) 25 U/L LIPID [id number] 00:00:00 Test Item Value Reference Range Interpretation Comments CHOLESTEROL (test code = 2210) 295 MG/DL TRIGLYCERIDES (test code = 2232) 218 MG/DL HDL CHOLESTEROL (test code = 2220) 46 MG/DL CALC LDL CHOL (test code = 2237) 205 MG/DL RISK RATIO LDL/HDL (test code = 4.47 RATIO 2238) LIPID [id number] 00:00:00 Test Item Value Reference Range Interpretation Comments CHOLESTEROL (test code = 2210) 295 MG/DL TRIGLYCERIDES (test code = 2232) 218 MG/DL HDL CHOLESTEROL (test code = 2220) 46 MG/DL CALC LDL CHOL (test code = 2237) 205 MG/DL RISK RATIO LDL/HDL (test code = 4.47 RATIO 2238) HEMOGLOBIN [id number] 00:00:00 Test Item Value Reference Range Interpretation Comments HEMOGLOBIN A1c (test code = 79746) 7.0 % HEMOGLOBIN [id number] 00:00:00 Test Item Value Reference Range Interpretation Comments HEMOGLOBIN A1c (test code = 73168) 7.0 % HEMOGLOBIN [id number] 00:00:00 Test Item Value Reference Range Interpretation Comments HEMOGLOBIN A1c (test code = 73378) 7.0 % [id number] 00:00:00 Test Item Value Reference Range Interpretation Comments TSH, THIRD GENERATION (test code 0.565 UIU/ML = 2821) [id number] 00:00:00 Test Item Value Reference Range Interpretation Comments TSH, THIRD GENERATION (test code 0.565 UIU/ML = 2821) [id number] 00:00:00 Test Item Value Reference Range Interpretation Comments TSH, THIRD GENERATION (test code 0.565 UIU/ML = 2821) COMPREHENSIVE METABOLIC [id number] 00:00:00 Test Item Value Reference Range Interpretation Comments GLUCOSE (test code = 2217) 109 MG/DL BUN (test code = 2208) 25 MG/DL CREATININE (test code = 2214) 0.78 MG/DL eGFR AMER. (test code 98 ML/MIN/1.73 = 61637) eGFR NON- AMER. (test 84 ML/MIN/1.73 code = 45725) CALC BUN/CREAT (test code = 32 RATIO [...] (test code = 2219) 25 U/L LIPID [id number] 00:00:00 Test Item Value Reference Range Interpretation Comments CHOLESTEROL (test code = 2210) 295 MG/DL TRIGLYCERIDES (test code = 2232) 218 MG/DL HDL CHOLESTEROL (test code = 2220) 46 MG/DL CALC LDL CHOL (test code = 2237) 205 MG/DL RISK RATIO LDL/HDL (test code = 4.47 RATIO 2238) HEMOGLOBIN [id number] 00:00:00 Test Item Value Reference Range Interpretation Comments HEMOGLOBIN A1c (test code = 78927) 7.0 % HEMOGLOBIN [id number] 00:00:00 Test Item Value Reference Range Interpretation Comments HEMOGLOBIN A1c (test code = 49781) 7.0 % [id number] 00:00:00 Test Item Value Reference Range Interpretation Comments TSH, THIRD GENERATION (test code 0.565 UIU/ML = 2821) [id number] 00:00:00 Test Item Value Reference Range Interpretation Comments TSH, THIRD GENERATION (test code 0.565 UIU/ML = 2821) COMPREHENSIVE METABOLIC [id number] 00:00:00 Test Item Value Reference Range Interpretation Comments GLUCOSE (test code = 2217) 109 MG/DL BUN (test code = 2208) 25 MG/DL CREATININE (test code = 2214) 0.78 MG/DL eGFR AMER. (test code 98 ML/MIN/1.73 = 52127) eGFR NON- AMER. (test 84 ML/MIN/1.73 code = 04858) CALC BUN/CREAT (test code = 32 RATIO [...] code = 2219) 25 U/L COMPREHENSIVE METABOLIC [id number] 00:00:00 Test Item Value Reference Range Interpretation Comments GLUCOSE (test code = 2217) 109 MG/DL BUN (test code = 2208) 25 MG/DL CREATININE (test code = 2214) 0.78 MG/DL eGFR AMER. (test code 98 ML/MIN/1.73 = 79344) eGFR NON- AMER. (test 84 ML/MIN/1.73 code = 78975) CALC BUN/CREAT (test code = 32 RATIO [...] (test code = 2219) 25 U/L LIPID [id number] 00:00:00 Test Item Value Reference Range Interpretation Comments CHOLESTEROL (test code = 2210) 295 MG/DL TRIGLYCERIDES (test code = 2232) 218 MG/DL HDL CHOLESTEROL (test code = 2220) 46 MG/DL CALC LDL CHOL (test code = 2237) 205 MG/DL RISK RATIO LDL/HDL (test code = 4.47 RATIO 2238) LIPID [id number] 00:00:00 Test Item Value Reference Range Interpretation Comments CHOLESTEROL (test code = 2210) 295 MG/DL TRIGLYCERIDES (test code = 2232) 218 MG/DL HDL CHOLESTEROL (test code = 2220) 46 MG/DL CALC LDL CHOL (test code = 2237) 205 MG/DL RISK RATIO LDL/HDL (test code = 4.47 RATIO 2238) HEMOGLOBIN [id number] 00:00:00 Test Item Value Reference Range Interpretation Comments HEMOGLOBIN A1c (test code = 22775) 7.0 % HEMOGLOBIN [id number] 00:00:00 Test Item Value Reference Range Interpretation Comments HEMOGLOBIN A1c (test code = 07048) 7.0 % HEMOGLOBIN [id number] 00:00:00 Test Item Value Reference Range Interpretation Comments HEMOGLOBIN A1c (test code = 87147) 7.0 % [id number] 00:00:00 Test Item Value Reference Range Interpretation Comments TSH, THIRD GENERATION (test code 0.565 UIU/ML = 2821) [id number] 00:00:00 Test Item Value Reference Range Interpretation Comments TSH, THIRD GENERATION (test code 0.565 UIU/ML = 2821) [id number] 00:00:00 Test Item Value Reference Range Interpretation Comments TSH, THIRD GENERATION (test code 0.565 UIU/ML = 2821) [id number] 00:00:00 Test Item Value Reference Range Interpretation Comments TSH, THIRD GENERATION (test code 0.379 UIU/ML = 2821) [id number] 00:00:00 Test Item Value Reference Range Interpretation Comments TSH, THIRD GENERATION (test code 0.379 UIU/ML = 2821) [id number] 00:00:00 Test Item Value Reference Range Interpretation Comments TSH, THIRD GENERATION (test code 0.379 UIU/ML = 2821) [id number] 00:00:00 Test Item Value Reference Range Interpretation Comments TSH, THIRD GENERATION (test code 0.379 UIU/ML = 2821) [id number] 00:00:00 Test Item Value Reference Range Interpretation Comments TSH, THIRD GENERATION (test code 0.379 UIU/ML = 2821) [id number] 00:00:00 Test Item Value Reference Range Interpretation Comments TSH, THIRD GENERATION (test code 0.379 UIU/ML = 2821) [id number] 00:00:00 Test Item Value Reference Range Interpretation Comments TSH, THIRD GENERATION (test code 0.379 UIU/ML = 2821) [id number] 00:00:00 Test Item Value Reference Range Interpretation Comments TSH, THIRD GENERATION (test code 0.379 UIU/ML = 2821) [id number] 00:00:00 Test Item Value Reference Range Interpretation Comments TSH, THIRD GENERATION (test code 0.379 UIU/ML = 2821) [id number] 00:00:00 Test Item Value Reference Range Interpretation Comments TSH, THIRD GENERATION (test code 0.379 UIU/ML = 2821) [id number] 00:00:00 Test Item Value Reference Range Interpretation Comments TSH, THIRD GENERATION (test code 0.379 UIU/ML = 2821) CULTURE, [id number] 00:00:00 Test Item Value Reference Range Interpretation Comments CULTURE, URINE (test SPECIMEN NUMBER: code = 14310) [id number] CULTURE, [id number] 00:00:00 Test Item Value Reference Range Interpretation Comments CULTURE, URINE (test SPECIMEN NUMBER: code = 49729) [id number] CULTURE, [id number] 00:00:00 Test Item Value Reference Range Interpretation Comments CULTURE, URINE (test SPECIMEN NUMBER: code = 57460) [id number] CULTURE, [id number] 00:00:00 Test Item Value Reference Range Interpretation Comments CULTURE, URINE (test SPECIMEN NUMBER: code = 67026) [id number] CULTURE, [id number] 00:00:00 Test Item Value Reference Range Interpretation Comments CULTURE, URINE (test SPECIMEN NUMBER: code = 97500) [id number] CULTURE, [id number] 00:00:00 Test Item Value Reference Range Interpretation Comments CULTURE, URINE (test SPECIMEN NUMBER: code = 64536) [id number] CULTURE, [id number] 00:00:00 Test Item Value Reference Range Interpretation Comments CULTURE, URINE (test SPECIMEN NUMBER: code = 06344) [id number] COMPREHENSIVE METABOLIC [id number] 00:00:00 Test Item Value Reference Range Interpretation Comments GLUCOSE (test code = 2217) 128 MG/DL BUN (test code = 2208) 26 MG/DL CREATININE (test code = 2214) 0.92 MG/DL eGFR AMER. (test code 81 ML/MIN/1.73 = 89141) eGFR NON- AMER. (test 70 ML/MIN/1.73 code = 85024) CALC BUN/CREAT (test code = 28 RATIO [...] code = 2219) 29 U/L COMPREHENSIVE METABOLIC [id number] 00:00:00 Test Item Value Reference Range Interpretation Comments GLUCOSE (test code = 2217) 128 MG/DL BUN (test code = 2208) 26 MG/DL CREATININE (test code = 2214) 0.92 MG/DL eGFR AMER. (test code 81 ML/MIN/1.73 = 15282) eGFR NON- AMER. (test 70 ML/MIN/1.73 code = 15258) CALC BUN/CREAT (test code = 28 RATIO [...] code = 2219) 29 U/L ACUTE HEPATITIS [id number] 00:00:00 Test Item Value Reference Range Interpretation Comments HEPATITIS A IgM (test code = NON-REACTIVE 72965) HEPATITIS B CORE IgM (test code NON-REACTIVE = 4644) HEPATITIS B SURF AG (test code = NON-REACTIVE 2739) HEPATITIS C ANTIBODY (test code NON-REACTIVE = 4675) INTERPRETATION HEPATITIS A: (NOTE) (test code = 2552) INTERPRETATION HEPATITIS B: (NOTE) (test code = 44420) INTERPRETATION HEPATITIS C: (NOTE) (test code = 65104) ACUTE HEPATITIS [id number] 00:00:00 Test Item Value Reference Range Interpretation Comments HEPATITIS A IgM (test code = NON-REACTIVE 52342) HEPATITIS B CORE IgM (test code NON-REACTIVE = 4644) HEPATITIS B SURF AG (test code = NON-REACTIVE 9) HEPATITIS C ANTIBODY (test code NON-REACTIVE = 4675) INTERPRETATION HEPATITIS A: (NOTE) (test code = 2552) INTERPRETATION HEPATITIS B: (NOTE) (test code = 00950) INTERPRETATION HEPATITIS C: (NOTE) (test code = 11183) [id number] 00:00:00 Test Item Value Reference Range Interpretation Comments AMYLASE (test code = 2205) 32 U/L [id number] 00:00:00 Test Item Value Reference Range Interpretation Comments AMYLASE (test code = 2205) 32 U/L [id number] 00:00:00 Test Item Value Reference Range Interpretation Comments LIPASE (test code = 2058) 22 U/L [id number] 00:00:00 Test Item Value Reference Range Interpretation Comments LIPASE (test code = 2058) 22 U/L [id number] 00:00:00 Test Item Value Reference Range Interpretation Comments LIPASE (test code = 2058) 22 U/L COMPREHENSIVE METABOLIC [id number] 00:00:00 Test Item Value Reference Range Interpretation Comments GLUCOSE (test code = 2217) 128 MG/DL BUN (test code = 2208) 26 MG/DL CREATININE (test code = 2214) 0.92 MG/DL eGFR AMER. (test code 81 ML/MIN/1.73 = 53919) eGFR NON- AMER. (test 70 ML/MIN/1.73 code = 18162) CALC BUN/CREAT (test code = 28 RATIO [...] code = 2219) 29 U/L COMPREHENSIVE METABOLIC [id number] 00:00:00 Test Item Value Reference Range Interpretation Comments GLUCOSE (test code = 2217) 128 MG/DL BUN (test code = 2208) 26 MG/DL CREATININE (test code = 2214) 0.92 MG/DL eGFR AMER. (test code 81 ML/MIN/1.73 = 22456) eGFR NON- AMER. (test 70 ML/MIN/1.73 code = 89625) CALC BUN/CREAT (test code = 28 RATIO [...] code = 2219) 29 U/L ACUTE HEPATITIS [id number] 00:00:00 Test Item Value Reference Range Interpretation Comments HEPATITIS A IgM (test code = NON-REACTIVE 47725) HEPATITIS B CORE IgM (test code NON-REACTIVE = 4644) HEPATITIS B SURF AG (test code = NON-REACTIVE 2739) HEPATITIS C ANTIBODY (test code NON-REACTIVE = 4675) INTERPRETATION HEPATITIS A: (NOTE) (test code = 2552) INTERPRETATION HEPATITIS B: (NOTE) (test code = 67540) INTERPRETATION HEPATITIS C: (NOTE) (test code = 26780) ACUTE HEPATITIS [id number] 00:00:00 Test Item Value Reference Range Interpretation Comments HEPATITIS A IgM (test code = NON-REACTIVE 90642) HEPATITIS B CORE IgM (test code NON-REACTIVE = 4644) HEPATITIS B SURF AG (test code = NON-REACTIVE 2739) HEPATITIS C ANTIBODY (test code NON-REACTIVE = 4675) INTERPRETATION HEPATITIS A: (NOTE) (test code = 2552) INTERPRETATION HEPATITIS B: (NOTE) (test code = 17119) INTERPRETATION HEPATITIS C: (NOTE) (test code = 93372) [id number] 00:00:00 Test Item Value Reference Range Interpretation Comments AMYLASE (test code = 2205) 32 U/L [id number] 00:00:00 Test Item Value Reference Range Interpretation Comments AMYLASE (test code = 2205) 32 U/L [id number] 00:00:00 Test Item Value Reference Range Interpretation Comments LIPASE (test code = 2058) 22 U/L [id number] 00:00:00 Test Item Value Reference Range Interpretation Comments LIPASE (test code = 2058) 22 U/L [id number] 00:00:00 Test Item Value Reference Range Interpretation Comments LIPASE (test code = 2058) 22 U/L COMPREHENSIVE METABOLIC [id number] 00:00:00 Test Item Value Reference Range Interpretation Comments GLUCOSE (test code = 2217) 128 MG/DL BUN (test code = 2208) 26 MG/DL CREATININE (test code = 2214) 0.92 MG/DL eGFR AMER. (test code 81 ML/MIN/1.73 = 33924) eGFR NON- AMER. (test 70 ML/MIN/1.73 code = 31504) CALC BUN/CREAT (test code = 28 RATIO [...] code = 2219) 29 U/L ACUTE HEPATITIS [id number] 00:00:00 Test Item Value Reference Range Interpretation Comments HEPATITIS A IgM (test code = NON-REACTIVE 40959) HEPATITIS B CORE IgM (test code NON-REACTIVE = 4644) HEPATITIS B SURF AG (test code = NON-REACTIVE 6255) HEPATITIS C ANTIBODY (test code NON-REACTIVE = 4675) INTERPRETATION HEPATITIS A: (NOTE) (test code = 2552) INTERPRETATION HEPATITIS B: (NOTE) (test code = 20455) INTERPRETATION HEPATITIS C: (NOTE) (test code = 08113) [id number] 00:00:00 Test Item Value Reference Range Interpretation Comments AMYLASE (test code = 2205) 32 U/L [id number] 00:00:00 Test Item Value Reference Range Interpretation Comments LIPASE (test code = 2058) 22 U/L [id number] 00:00:00 Test Item Value Reference Range Interpretation Comments LIPASE (test code = 2058) 22 U/L COMPREHENSIVE METABOLIC [id number] 00:00:00 Test Item Value Reference Range Interpretation Comments GLUCOSE (test code = 2217) 128 MG/DL BUN (test code = 2208) 26 MG/DL CREATININE (test code = 2214) 0.92 MG/DL eGFR AMER. (test code 81 ML/MIN/1.73 = 72969) eGFR NON- AMER. (test 70 ML/MIN/1.73 code = 54402) CALC BUN/CREAT (test code = 28 RATIO [...] code = 2219) 29 U/L COMPREHENSIVE METABOLIC [id number] 00:00:00 Test Item Value Reference Range Interpretation Comments GLUCOSE (test code = 2217) 128 MG/DL BUN (test code = 2208) 26 MG/DL CREATININE (test code = 2214) 0.92 MG/DL eGFR AMER. (test code 81 ML/MIN/1.73 = 79199) eGFR NON- AMER. (test 70 ML/MIN/1.73 code = 61549) CALC BUN/CREAT (test code = 28 RATIO [...] code = 2219) 29 U/L ACUTE HEPATITIS [id number] 00:00:00 Test Item Value Reference Range Interpretation Comments HEPATITIS A IgM (test code = NON-REACTIVE 02377) HEPATITIS B CORE IgM (test code NON-REACTIVE = 4644) HEPATITIS B SURF AG (test code = NON-REACTIVE 2739) HEPATITIS C ANTIBODY (test code NON-REACTIVE = 4675) INTERPRETATION HEPATITIS A: (NOTE) (test code = 2552) INTERPRETATION HEPATITIS B: (NOTE) (test code = 52061) INTERPRETATION HEPATITIS C: (NOTE) (test code = 75245) ACUTE HEPATITIS [id number] 00:00:00 Test Item Value Reference Range Interpretation Comments HEPATITIS A IgM (test code = NON-REACTIVE 48941) HEPATITIS B CORE IgM (test code NON-REACTIVE = 4644) HEPATITIS B SURF AG (test code = NON-REACTIVE 2739) HEPATITIS C ANTIBODY (test code NON-REACTIVE = 4675) INTERPRETATION HEPATITIS A: (NOTE) (test code = 2552) INTERPRETATION HEPATITIS B: (NOTE) (test code = 28156) INTERPRETATION HEPATITIS C: (NOTE) (test code = 75289) [id number] 00:00:00 Test Item Value Reference Range Interpretation Comments AMYLASE (test code = 2205) 32 U/L [id number] 00:00:00 Test Item Value Reference Range Interpretation Comments AMYLASE (test code = 2205) 32 U/L [id number] 00:00:00 Test Item Value Reference Range Interpretation Comments LIPASE (test code = 2058) 22 U/L [id number] 00:00:00 Test Item Value Reference Range Interpretation Comments LIPASE (test code = 205) 22 U/L [id number] 00:00:00 Test Item Value Reference Range Interpretation Comments LIPASE (test code = 2058) 22 U/L [id number] 00:00:00 Test Item Value Reference Range Interpretation Comments TSH, THIRD GENERATION (test code 4.890 UIU/ML = 2821) [id number] 00:00:00 Test Item Value Reference Range Interpretation Comments TSH, THIRD GENERATION (test code 4.890 UIU/ML = 2821) [id number] 00:00:00 Test Item Value Reference Range Interpretation Comments TSH, THIRD GENERATION (test code 4.890 UIU/ML = 2821) COMPREHENSIVE METABOLIC [id number] 00:00:00 Test Item Value Reference Range Interpretation Comments GLUCOSE (test code = 2217) 121 MG/DL BUN (test code = 2208) 40 MG/DL CREATININE (test code = 2214) 1.48 MG/DL eGFR AMER. (test code 45 ML/MIN/1.73 = 36939) eGFR NON- AMER. (test 39 ML/MIN/1.73 code = 24600) CALC BUN/CREAT (test code = 27 RATIO [...] code = 2219) 20 U/L COMPREHENSIVE METABOLIC [id number] 00:00:00 Test Item Value Reference Range Interpretation Comments GLUCOSE (test code = 2217) 121 MG/DL BUN (test code = 2208) 40 MG/DL CREATININE (test code = 2214) 1.48 MG/DL eGFR AMER. (test code 45 ML/MIN/1.73 = 99490) eGFR NON- AMER. (test 39 ML/MIN/1.73 code = 20170) CALC BUN/CREAT (test code = 27 RATIO [...] ALT (test code = 2219) 20 U/L [id number] 00:00:00 Test Item Value Reference Range Interpretation Comments TSH, THIRD GENERATION (test code 4.890 UIU/ML = 2821) [id number] 00:00:00 Test Item Value Reference Range Interpretation Comments TSH, THIRD GENERATION (test code 4.890 UIU/ML = 2821) [id number] 00:00:00 Test Item Value Reference Range Interpretation Comments TSH, THIRD GENERATION (test code 4.890 UIU/ML = 2821) COMPREHENSIVE METABOLIC [id number] 00:00:00 Test Item Value Reference Range Interpretation Comments GLUCOSE (test code = 2217) 121 MG/DL BUN (test code = 2208) 40 MG/DL CREATININE (test code = 2214) 1.48 MG/DL eGFR AMER. (test code 45 ML/MIN/1.73 = 69281) eGFR NON- AMER. (test 39 ML/MIN/1.73 code = 96743) CALC BUN/CREAT (test code = 27 RATIO [...] code = 2219) 20 U/L COMPREHENSIVE METABOLIC [id number] 00:00:00 Test Item Value Reference Range Interpretation Comments GLUCOSE (test code = 2217) 121 MG/DL BUN (test code = 2208) 40 MG/DL CREATININE (test code = 2214) 1.48 MG/DL eGFR AMER. (test code 45 ML/MIN/1.73 = 34835) eGFR NON- AMER. (test 39 ML/MIN/1.73 code [...] ALT (test code = 2219) 20 U/L [id number] 00:00:00 Test Item Value Reference Range Interpretation Comments TSH, THIRD GENERATION (test code 4.890 UIU/ML = 2821) [id number] 00:00:00 Test Item Value Reference Range Interpretation Comments TSH, THIRD GENERATION (test code 4.890 UIU/ML = 2821) COMPREHENSIVE METABOLIC [id number] 00:00:00 Test Item Value Reference Range Interpretation Comments GLUCOSE (test code = 2217) 121 MG/DL BUN (test code = 2208) 40 MG/DL CREATININE (test code = 2214) 1.48 MG/DL eGFR AMER. (test code 45 ML/MIN/1.73 = 68755) eGFR NON- AMER. (test 39 ML/MIN/1.73 code = 00499) CALC BUN/CREAT (test code = 27 RATIO [...] ALT (test code = 2219) 20 U/L [id number] 00:00:00 Test Item Value Reference Range Interpretation Comments TSH, THIRD GENERATION (test code 4.890 UIU/ML = 2821) [id number] 00:00:00 Test Item Value Reference Range Interpretation Comments TSH, THIRD GENERATION (test code 4.890 UIU/ML = 2821) [id number] 00:00:00 Test Item Value Reference Range Interpretation Comments TSH, THIRD GENERATION (test code 4.890 UIU/ML = 2821) COMPREHENSIVE METABOLIC [id number] 00:00:00 Test Item Value Reference Range Interpretation Comments GLUCOSE (test code = 2217) 121 MG/DL BUN (test code = 2208) 40 MG/DL CREATININE (test code = 2214) 1.48 MG/DL eGFR AMER. (test code 45 ML/MIN/1.73 = 43652) eGFR NON- AMER. (test 39 ML/MIN/1.73 code = 09059) CALC BUN/CREAT (test code = 27 RATIO [...] code = 2219) 20 U/L COMPREHENSIVE METABOLIC [id number] 00:00:00 Test Item Value Reference Range Interpretation Comments GLUCOSE (test code = 2217) 121 MG/DL BUN (test code = 2208) 40 MG/DL CREATININE (test code = 2214) 1.48 MG/DL eGFR AMER. (test code 45 ML/MIN/1.73 = 03249) eGFR NON- AMER. (test 39 ML/MIN/1.73 code = 38004) CALC BUN/CREAT (test code = 27 RATIO [...] (test code = 2219) 20 U/L LIPID [id number] 00:00:00 Test Item Value Reference Range Interpretation Comments CHOLESTEROL (test code = 2210) 261 MG/DL TRIGLYCERIDES (test code = 2232) 165 MG/DL HDL CHOLESTEROL (test code = 2220) 58 MG/DL CALC LDL CHOL (test code = 2237) 170 MG/DL RISK RATIO LDL/HDL (test code = 2.93 RATIO 2238) LIPID [id number] 00:00:00 Test Item Value Reference Range Interpretation Comments CHOLESTEROL (test code = 2210) 261 MG/DL TRIGLYCERIDES (test code = 2232) 165 MG/DL HDL CHOLESTEROL (test code = 2220) 58 MG/DL CALC LDL CHOL (test code = 2237) 170 MG/DL RISK RATIO LDL/HDL (test code = 2.93 RATIO 2238) CBC W/AUTO [id number] 00:00:00 Test Item Value Reference Range Interpretation [...] code = 1015) 378 K/UL CBC W/AUTO [id number] 00:00:00 Test Item Value Reference Range Interpretation [...] code = 1015) 378 K/UL CBC W/AUTO [id number] 00:00:00 Test Item Value Reference Range Interpretation [...] (test code = 1015) 378 K/UL HEMOGLOBIN [id number] 00:00:00 Test Item Value Reference Range Interpretation Comments HEMOGLOBIN A1c (test code = 54622) 6.4 % HEMOGLOBIN [id number] 00:00:00 Test Item Value Reference Range Interpretation Comments HEMOGLOBIN A1c (test code = 34100) 6.4 % HEMOGLOBIN [id number] 00:00:00 Test Item Value Reference Range Interpretation Comments HEMOGLOBIN A1c (test code = 52818) 6.4 % [id number] 00:00:00 Test Item Value Reference Range Interpretation Comments TSH (test code = 2821) 5.290 UIU/ML [id number] 00:00:00 Test Item Value Reference Range Interpretation Comments TSH (test code = 2821) 5.290 UIU/ML [id number] 00:00:00 Test Item Value Reference Range Interpretation Comments TSH (test code = 2821) 5.290 UIU/ML LIPID [id number] 00:00:00 Test Item Value Reference Range Interpretation Comments CHOLESTEROL (test code = 2210) 261 MG/DL TRIGLYCERIDES (test code = 2232) 165 MG/DL HDL CHOLESTEROL (test code = 2220) 58 MG/DL CALC LDL CHOL (test code = 2237) 170 MG/DL RISK RATIO LDL/HDL (test code = 2.93 RATIO 2238) LIPID [id number] 00:00:00 Test Item Value Reference Range Interpretation Comments CHOLESTEROL (test code = 2210) 261 MG/DL TRIGLYCERIDES (test code = 2232) 165 MG/DL HDL CHOLESTEROL (test code = 2220) 58 MG/DL CALC LDL CHOL (test code = 2237) 170 MG/DL RISK RATIO LDL/HDL (test code = 2.93 RATIO 2238) CBC W/AUTO [id number] 00:00:00 Test Item Value Reference Range Interpretation [...] code = 1015) 378 K/UL CBC W/AUTO [id number] 00:00:00 Test Item Value Reference Range Interpretation [...] code = 1015) 378 K/UL CBC W/AUTO [id number] 00:00:00 Test Item Value Reference Range Interpretation [...] (test code = 1015) 378 K/UL HEMOGLOBIN [id number] 00:00:00 Test Item Value Reference Range Interpretation Comments HEMOGLOBIN A1c (test code = 99741) 6.4 % HEMOGLOBIN [id number] 00:00:00 Test Item Value Reference Range Interpretation Comments HEMOGLOBIN A1c (test code = 98164) 6.4 % HEMOGLOBIN [id number] 00:00:00 Test Item Value Reference Range Interpretation Comments HEMOGLOBIN A1c (test code = 65428) 6.4 % [id number] 00:00:00 Test Item Value Reference Range Interpretation Comments TSH (test code = 2821) 5.290 UIU/ML [id number] 00:00:00 Test Item Value Reference Range Interpretation Comments TSH (test code = 2821) 5.290 UIU/ML [id number] 00:00:00 Test Item Value Reference Range Interpretation Comments TSH (test code = 2821) 5.290 UIU/ML LIPID [id number] 00:00:00 Test Item Value Reference Range Interpretation Comments CHOLESTEROL (test code = 2210) 261 MG/DL TRIGLYCERIDES (test code = 2232) 165 MG/DL HDL CHOLESTEROL (test code = 2220) 58 MG/DL CALC LDL CHOL (test code = 2237) 170 MG/DL RISK RATIO LDL/HDL (test code = 2.93 RATIO 2238) CBC W/AUTO [id number] 00:00:00 Test Item Value Reference Range Interpretation [...] code = 1015) 378 K/UL CBC W/AUTO [id number] 00:00:00 Test Item Value Reference Range Interpretation [...] (test code = 1015) 378 K/UL HEMOGLOBIN [id number] 00:00:00 Test Item Value Reference Range Interpretation Comments HEMOGLOBIN A1c (test code = 42058) 6.4 % HEMOGLOBIN [id number] 00:00:00 Test Item Value Reference Range Interpretation Comments HEMOGLOBIN A1c (test code = 88160) 6.4 % [id number] 00:00:00 Test Item Value Reference Range Interpretation Comments TSH (test code = 2821) 5.290 UIU/ML [id number] 00:00:00 Test Item Value Reference Range Interpretation Comments TSH (test code = 2821) 5.290 UIU/ML LIPID [id number] 00:00:00 Test Item Value Reference Range Interpretation Comments CHOLESTEROL (test code = 2210) 261 MG/DL TRIGLYCERIDES (test code = 2232) 165 MG/DL HDL CHOLESTEROL (test code = 2220) 58 MG/DL CALC LDL CHOL (test code = 2237) 170 MG/DL RISK RATIO LDL/HDL (test code = 2.93 RATIO 2238) LIPID [id number] 00:00:00 Test Item Value Reference Range Interpretation Comments CHOLESTEROL (test code = 2210) 261 MG/DL TRIGLYCERIDES (test code = 2232) 165 MG/DL HDL CHOLESTEROL (test code = 2220) 58 MG/DL CALC LDL CHOL (test code = 2237) 170 MG/DL RISK RATIO LDL/HDL (test code = 2.93 RATIO 2238) CBC W/AUTO [id number] 00:00:00 Test Item Value Reference Range Interpretation [...] code = 1015) 378 K/UL CBC W/AUTO [id number] 00:00:00 Test Item Value Reference Range Interpretation [...] code = 1015) 378 K/UL CBC W/AUTO [id number] 00:00:00 Test Item Value Reference Range Interpretation [...] (test code = 1015) 378 K/UL HEMOGLOBIN [id number] 00:00:00 Test Item Value Reference Range Interpretation Comments HEMOGLOBIN A1c (test code = 38152) 6.4 % HEMOGLOBIN [id number] 00:00:00 Test Item Value Reference Range Interpretation Comments HEMOGLOBIN A1c (test code = 38349) 6.4 % HEMOGLOBIN [id number] 00:00:00 Test Item Value Reference Range Interpretation Comments HEMOGLOBIN A1c (test code = 30330) 6.4 % [id number] 00:00:00 Test Item Value Reference Range Interpretation Comments TSH (test code = 2821) 5.290 UIU/ML [id number] 00:00:00 Test Item Value Reference Range Interpretation Comments TSH (test code = 2821) 5.290 UIU/ML [id number] 00:00:00 Test Item Value Reference Range Interpretation [...] code = 2821) 1.030 UIU/ML COMPREHENSIVE METABOLIC [id number] 00:00:00 Test Item Value Reference Range Interpretation Comments GLUCOSE (test code = 2217) 106 MG/DL BUN (test code = 2208) 23 MG/DL CREATININE (test code = 2214) 0.66 MG/DL eGFR AMER. (test code 114 ML/MIN/1.73 = 69183) eGFR NON- AMER. (test 99 ML/MIN/1.73 code = 52037) CALC BUN/CREAT (test code = 35 RATIO [...] code = 2219) 31 U/L COMPREHENSIVE METABOLIC [id number] 00:00:00 Test Item Value Reference Range Interpretation Comments GLUCOSE (test code = 2217) 106 MG/DL BUN (test code = 2208) 23 MG/DL CREATININE (test code = 2214) 0.66 MG/DL eGFR AMER. (test code 114 ML/MIN/1.73 = 87239) eGFR NON- AMER. (test 99 ML/MIN/1.73 code = 79790) CALC BUN/CREAT (test code = 35 RATIO [...] code = 2821) 0.335 UIU/ML COMPREHENSIVE METABOLIC [id number] 00:00:00 Test Item Value Reference Range Interpretation Comments GLUCOSE (test code = 2217) 106 MG/DL BUN (test code = 2208) 23 MG/DL CREATININE (test code = 2214) 0.66 MG/DL eGFR AMER. (test code 114 ML/MIN/1.73 = 01334) eGFR NON- AMER. (test 99 ML/MIN/1.73 code = 12256) CALC BUN/CREAT (test code = 35 RATIO [...] code = 2219) 31 U/L COMPREHENSIVE METABOLIC [id number] 00:00:00 Test Item Value Reference Range Interpretation Comments GLUCOSE (test code = 2217) 106 MG/DL BUN (test code = 2208) 23 MG/DL CREATININE (test code = 2214) 0.66 MG/DL eGFR AMER. (test code 114 ML/MIN/1.73 = 66750) eGFR NON- AMER. (test 99 ML/MIN/1.73 code = 48088) CALC BUN/CREAT (test code = 35 RATIO [...] code = 2821) 0.335 UIU/ML COMPREHENSIVE METABOLIC [id number] 00:00:00 Test Item Value Reference Range Interpretation Comments GLUCOSE (test code = 2217) 106 MG/DL BUN (test code = 2208) 23 MG/DL CREATININE (test code = 2214) 0.66 MG/DL eGFR AMER. (test code 114 ML/MIN/1.73 = 67033) eGFR NON- AMER. (test 99 ML/MIN/1.73 code = 28926) CALC BUN/CREAT (test code = 35 RATIO [...] code = 2821) 0.335 UIU/ML COMPREHENSIVE METABOLIC [id number] 00:00:00 Test Item Value Reference Range Interpretation Comments GLUCOSE (test code = 2217) 106 MG/DL BUN (test code = 2208) 23 MG/DL CREATININE (test code = 2214) 0.66 MG/DL eGFR AMER. (test code 114 ML/MIN/1.73 = 14662) eGFR NON- AMER. (test 99 ML/MIN/1.73 code = 01718) CALC BUN/CREAT (test code = 35 RATIO [...] code = 2219) 31 U/L COMPREHENSIVE METABOLIC [id number] 00:00:00 Test Item Value Reference Range Interpretation Comments GLUCOSE (test code = 2217) 106 MG/DL BUN (test code = 2208) 23 MG/DL CREATININE (test code = 2214) 0.66 MG/DL eGFR AMER. (test code 114 ML/MIN/1.73 = 31060) eGFR NON- AMER. (test 99 ML/MIN/1.73 code = 20999) CALC BUN/CREAT (test code = 35 RATIO [...] code = 2821) 0.335 UIU/ML COMPREHENSIVE METABOLIC [id number] 00:00:00 Test Item Value Reference Range Interpretation Comments GLUCOSE (test code = 2217) 103 MG/DL BUN (test code = 2208) 15 MG/DL CREATININE (test code = 2214) 0.77 MG/DL eGFR AMER. (test code 101 ML/MIN/1.73 = 54786) eGFR NON- AMER. (test 87 ML/MIN/1.73 code = 04853) CALC BUN/CREAT (test code = 19 RATIO [...] code = 2219) 24 U/L COMPREHENSIVE METABOLIC [id number] 00:00:00 Test Item Value Reference Range Interpretation Comments GLUCOSE (test code = 2217) 103 MG/DL BUN (test code = 2208) 15 MG/DL CREATININE (test code = 2214) 0.77 MG/DL eGFR AMER. (test code 101 ML/MIN/1.73 = 70095) eGFR NON- AMER. (test 87 ML/MIN/1.73 code = 75724) CALC BUN/CREAT (test code = 19 RATIO [...] CALCULATED T7 (FTI) (test code = 1.37 3310) TSH (test code = 2821) 0.424 UIU/ML THYROID II PROFILE (T3U, T4, T7, TSH)2016-08-22 00:00:00 Test Item Value Reference Range Interpretation Comments T3 UPTAKE (test code = 2817) 35.1 % T4 (THYROXINE) (test code = 3.9 UG/DL 2819) CALCULATED T7 (FTI) (test code = 1.37 2820) TSH (test code = 2821) 0.424 UIU/ML COMPREHENSIVE METABOLIC [id number] 00:00:00 Test Item Value Reference Range Interpretation Comments GLUCOSE (test code = 2217) 103 MG/DL BUN (test code = 2208) 15 MG/DL CREATININE (test code = 2214) 0.77 MG/DL eGFR AMER. (test code 101 ML/MIN/1.73 = 99092) eGFR NON- AMER. (test 87 ML/MIN/1.73 code = 23987) CALC BUN/CREAT (test code = 19 RATIO [...] code = 2219) 24 U/L COMPREHENSIVE METABOLIC [id number] 00:00:00 Test Item Value Reference Range Interpretation Comments GLUCOSE (test code = 2217) 103 MG/DL BUN (test code = 2208) 15 MG/DL CREATININE (test code = 2214) 0.77 MG/DL eGFR AMER. (test code 101 ML/MIN/1.73 = 83957) eGFR NON- AMER. (test 87 ML/MIN/1.73 code = 59821) CALC BUN/CREAT (test code = 19 RATIO [...] code = 2821) 0.424 UIU/ML COMPREHENSIVE METABOLIC [id number] 00:00:00 Test Item Value Reference Range Interpretation Comments GLUCOSE (test code = 2217) 103 MG/DL BUN (test code = 2208) 15 MG/DL CREATININE (test code = 2214) 0.77 MG/DL eGFR AMER. (test code 101 ML/MIN/1.73 = 19510) eGFR NON- AMER. (test 87 ML/MIN/1.73 code = 53932) CALC BUN/CREAT (test code = 19 RATIO [...] code = 2821) 0.424 UIU/ML COMPREHENSIVE METABOLIC [id number] 00:00:00 Test Item Value Reference Range Interpretation Comments GLUCOSE (test code = 2217) 103 MG/DL BUN (test code = 2208) 15 MG/DL CREATININE (test code = 2214) 0.77 MG/DL eGFR AMER. (test code 101 ML/MIN/1.73 = 38730) eGFR NON- AMER. (test 87 ML/MIN/1.73 code = 35992) CALC BUN/CREAT (test code = 19 RATIO [...] code = 2219) 24 U/L COMPREHENSIVE METABOLIC [id number] 00:00:00 Test Item Value Reference Range Interpretation Comments GLUCOSE (test code = 2217) 103 MG/DL BUN (test code = 2208) 15 MG/DL CREATININE (test code = 2214) 0.77 MG/DL eGFR AMER. (test code 101 ML/MIN/1.73 = 04549) eGFR NON- AMER. (test 87 ML/MIN/1.73 code = 41142) CALC BUN/CREAT (test code = 19 RATIO [...] (test code = 2821) 0.424 UIU/ML CULTURE, [id number] 00:00:00 Test Item Value Reference Range Interpretation Comments CULTURE, URINE (test SPECIMEN NUMBER: code = 75867) [id number] CULTURE, [id number] 00:00:00 Test Item Value Reference Range Interpretation Comments CULTURE, URINE (test SPECIMEN NUMBER: code = 84359) [id number] CULTURE, [id number] 00:00:00 Test Item Value Reference Range Interpretation Comments CULTURE, URINE (test SPECIMEN NUMBER: code = 08729) [id number] CULTURE, [id number] 00:00:00 Test Item Value Reference Range Interpretation Comments CULTURE, URINE (test SPECIMEN NUMBER: code = 54935) [id number] CULTURE, [id number] 00:00:00 Test Item Value Reference Range Interpretation Comments CULTURE, URINE (test SPECIMEN NUMBER: code = 01828) [id number] CULTURE, [id number] 00:00:00 Test Item Value Reference Range Interpretation Comments CULTURE, URINE (test SPECIMEN NUMBER: code = 23299) [id number] CULTURE, [id number] 00:00:00 Test Item Value Reference Range Interpretation Comments CULTURE, URINE (test SPECIMEN NUMBER: code = 75563) [id number] CULTURE, [id number] 00:00:00 Test Item Value Reference Range Interpretation Comments CULTURE, URINE (test SPECIMEN NUMBER: code = 67635) [id number] CULTURE, [id number] 00:00:00 Test Item Value Reference Range Interpretation Comments CULTURE, URINE (test SPECIMEN NUMBER: code = 04274) [id number] CULTURE, [id number] 00:00:00 Test Item Value Reference Range Interpretation Comments CULTURE, URINE (test SPECIMEN NUMBER: code = 38857) [id number] CULTURE, [id number] 00:00:00 Test Item Value Reference Range Interpretation Comments CULTURE, URINE (test SPECIMEN NUMBER: code = 93176) [id number] CULTURE, [id number] 00:00:00 Test Item Value Reference Range Interpretation Comments CULTURE, URINE (test SPECIMEN NUMBER: code = 14989) [id number] CULTURE, [id number] 00:00:00 Test Item Value Reference Range Interpretation Comments CULTURE, URINE (test SPECIMEN NUMBER: code = 79230) [id number] CULTURE, [id number] 00:00:00 Test Item Value Reference Range Interpretation Comments CULTURE, URINE (test SPECIMEN NUMBER: code = 87699) [id number]
[2022-08-26 17:06] LABS: Absolute Lymphocytes (CBC) 2.9 K/uL (0.7-4.9); Hematocrit 37.7 % (36.0-45.0); Lymphocytes % 29.5 % (15.3-44.8); MCV 93.7 fL (80-100); MPV 6.7 fL (7.6-11.3); RBC Red Blood Cell Count 4.03 M/uL (3.86-4.86)
[2022-08-26 17:24] LABS: Bilirubin Total 0.1 mg/dL (0.2-1.0); Potassium 3.7 mEq/L (3.5-5.1); Protein, Total 8.3 g/dL (6.4-8.2)
[2022-08-26] MEDS ORDERED: METOCLOPRAMIDE 10 MG/2mL INJ ONE (17:49)
[2022-08-26] MEDS ORDERED: KETOROLAC 30 MG/ML INJ ONE (17:50)
[2022-08-26] MEDS ORDERED: PROMETHAZINE INJ 25 MG/ML AMP ONE (18:37)
[2022-08-26] MEDS ORDERED: NA CHLORIDE 0.9% 1,000 ML ONE (20:07)
[2022-08-26] MEDS ORDERED: ONDANSETRON 4 MG/2 ML VIAL ONE (21:54)
[2022-08-26 22:22] LABS: Specific Gravity 1.019 (1.005-1.030); Urine Bilirubin NEGATIVE (Negative); Urine Blood Negative (Negative); Urine Clarity Clear (Clear); Urine Color Light-Yellow (Yellow); Urine Glucose TRACE (Negative); Urine Protein NEGATIVE (Negative); Urine Urobilinogen Normal (Normal); Urine pH 6.5 (5.0-7.0)
--- NOTE | 2022-08-26 22:27 | ER ---
Nurse's Notes [facility] Name: Jaimie Amanda Age: 61 yrs Sex: Female : 1960 Arrival Date: 08/26/2022 Time: 16:08 Bed 12 Private MD: Diagnosis: Abdominal pain, Generalized;UTI/ Urinary tract infection, site not specified Presentation: 08/26 16:16 Chief complaint: Patient states: right sided abd pain X 3 hours , + nausea and iw vomiting. Coronavirus screen: Client presents with at least one sign or symptom that may indicate coronavirus-19. Ebola Screen: Patient negative for fever greater than or equal to 101.5 degrees Fahrenheit, and additional compatible Ebola Virus Disease symptoms Patient denies exposure to infectious person. Patient denies travel to an Ebola-affected area in the 21 days before illness onset. No symptoms or risks identified at this time. Initial Sepsis Screen: Does the patient meet any 2 criteria? No. Patient's initial sepsis screen is negative. Does the patient have a suspected source of infection? No. Patient's initial sepsis screen is negative. Risk Assessment: Do you want to hurt yourself or someone else? Patient reports no desire to harm self or others. Onset of symptoms was August 26, 2022. 16:16 Method Of Arrival: EMS: [facility] iw 16:16 Acuity: ZHEN 3 iw Historical: - Allergies: 16:17 hydrochlorothiazide; iw - PMHx: 16:17 Anxiety; Chronic Abdominal Pain; Hypertensive disorder; Hypothyroidism; low NA; NIDDM; iw - PSHx: 16:17 Thyroidectomy; iw - Immunization history:: Adult Immunizations unknown. - Social history:: Smoking status: unknown. Screenin:18 [facility] ED Fall Risk Assessment (Adult) History of falling in the last 3 months, iw including since admission No falls in past 3 months (0 pts). Abuse screen: Denies threats or abuse. Denies injuries from another. Nutritional screening: No deficits noted. Tuberculosis screening: No symptoms or risk factors identified. Assessment: 17:17 General: Appears uncomfortable, Behavior is cooperative, anxious. Pain: Complains of iw pain in umbilical area, right upper quadrant and right lower quadrant. Neuro: Level of Consciousness is awake, alert, obeys commands, Oriented to person, place, time, situation, Moves all extremities. Full function. Cardiovascular: Patient's skin is warm and dry. Respiratory: Respiratory effort is even, unlabored, Respiratory pattern is regular. GI: Abdomen is non-distended, Reports nausea, vomiting. Derm: Skin is intact. 18:18 Reassessment: No changes from previously documented assessment. nj1 18:18 GI: Pt is actively vomiting undigested food. nj1 19:05 Reassessment: ASSUMED CARE OF PT. PT LYING IN BED. NO DISTRESS NOTED. PT STATES SHE savage CAN'T GIVEN A URINE SAMPLE NOW WHEN ONE WAS REQUESTED. 19:53 Reassessment: PT WHEELED TO BATHROOM. NO URINE SAMPLE PROVIDED. PT JUST STATES SHE HAD j TO HAVE A BM. UCHE HUSSEIN INFORMED. ORDER FOR FLUIDS GIVEN. 22:47 Reassessment: PT BP ELEVATED. PT STATES SHE DID NOT TAKE HER BP MEDS TODAY. UCHE wan INFORMED AND SPOKE WITH PT. PT STATES SHE CAN NOT REMEMBER THE MEDS SHE IS TAKING. UCHE HUSSEIN INFORMED HER IF SHE REMEMBERS HER MEDS SHE WILL GIVE A DOSE. PT STATES SHE DOESN'T KNOW BUT HAS IT AT HOME. INSTRUMENT LENS GRINDER ENCOURAGED PT TO TAKE BP MEDS WHEN SHE GOT HOME. Vital Signs: 16:16 BP 160 / 77; Pulse 96; Resp 18; Temp 98.9; Pulse Ox 95% on R/A; Weight 68.04 kg; Height iw 5 ft. 7 in. ; Pain 9/10; 18:35 BP 172 / 89; Pulse 88; Resp 18; Pulse Ox 96% on R/A; nj1 19:57 BP 197 / 94; Pulse 88; Resp 20; Pulse Ox 97% ; jj7 21:00 BP 201 / 102; Pulse 91; Resp 18; Pulse Ox 98% ; jj7 22:00 BP 197 / 98; Pulse 98; Resp 17; Pulse Ox 97% ; jj7 22:47 BP 173 / 110; Pulse 96; Resp 18; Pulse Ox 99% ; jj7 16:16 Body Mass Index 23.49 (68.04 kg, 170.18 cm) iw 16:16 Pain Scale: Adult iw ED Course: 16:11 Patient arrived in ED. aa5 16:17 Triage completed. iw 16:17 Arm band placed on. iw 16:41 Tera Raymond MD is Attending Physician. kdr 16:59 Therese Logan, RN is Primary Nurse. iw 16:59 Inserted saline lock: 22 gauge in left wrist, using aseptic technique. Blood collected. iw 17:48 Patient has correct armband on for positive identification. Bed in low position. Call nj1 light in reach. Side rails up X 1. 22:05 Urinalysis w/ reflexes Sent. jj7 22:47 No provider procedures requiring assistance completed. IV discontinued, intact, jj7 bleeding controlled, No redness/swelling at site. Pressure dressing applied. Administered Medications: 17:48 Drug: Ketorolac IVP 15 mg Route: IVP; Site: left wrist; nj1 18:35 Follow up: Response: No adverse reaction nj1 17:48 Drug: metoCLOPramide IVP 20 mg Route: IVP; Site: left wrist; nj1 18:35 Follow up: Response: No adverse reaction nj1 21:26 Follow up: Response: No adverse reaction jj7 18:35 Drug: Promethazine IM 12.5 mg Route: IM; Site: left gluteus; nj1 21:26 Follow up: Response: Nausea is decreased jj7 20:02 Drug: NS 0.9% IV 1000 ml Route: IV; Rate: 1000 ml; Site: left wrist; jj7 21:07 Follow up: IV Status: Completed infusion jj7 21:50 Drug: Ondansetron IVP 4 mg Route: IVP; Site: left wrist; jj7 22:47 Follow up: Response: No adverse reaction jj7 Medication: 17:18 VIS not applicable for this client. iw Outcome: 22:26 Discharge ordered by . kb 22:47 Discharged to home ambulatory, with family. jj7 22:47 Condition: improved 22:47 Discharge instructions given to patient, Instructed on discharge instructions, follow up and referral plans. Demonstrated understanding of instructions, follow-up care. 23:51 Patient left the ED. jj7 Signatures: Emma Hussein, PRODUCTION LAPPING MACHINE OPERATOR-C PRODUCTION LAPPING MACHINE OPERATOR-CkTera Braga MD MD kdr Williams, Irene, RN RN iw Bhavna Corado RN RN aa5 Aleyda Virk RN RN jj7 Berna Lomax RN RN nj1 Corrections: (The following items were deleted from the chart) 19:19 18:18 Reassessment: No changes from previously documented assessment. nj1 nj1
--- NOTE | 2022-08-26 22:27 | EDPHYS ---
Physician Documentation [facility] Name: Jaimie Amanda Age: 61 yrs Sex: Female : 1960 Arrival Date: 08/26/2022 Time: 16:08 Bed 12 Private MD: ED Physician Tera Raymond HPI: 08/26 17:57 This 61 yrs old Female presents to ER via EMS with complaints of Flank Pain. kdr 17:58 Patient complains of right-sided abdominal and flank pain for the last 3 hours. She kdr also states she has had nausea and vomiting. Patient otherwise appears to be nontoxic.. Onset: The symptoms/episode began/occurred suddenly, 3 hour(s) ago. Severity of symptoms: At their worst the symptoms were mild just prior to arrival, in the emergency department the symptoms are unchanged. The patient has experienced similar episodes in the past, multiple times, chronically. Historical: - Allergies: 16:17 hydrochlorothiazide; iw - PMHx: 16:17 Anxiety; Chronic Abdominal Pain; Hypertensive disorder; Hypothyroidism; low NA; NIDDM; iw - PSHx: 16:17 Thyroidectomy; iw - Immunization history:: Adult Immunizations unknown. - Social history:: Smoking status: unknown. ROS: 17:58 Constitutional: Negative for fever, chills, and weight loss, Eyes: Negative for injury, kdr pain, redness, and discharge, Neck: Negative for injury, pain, and swelling, Cardiovascular: Negative for chest pain, palpitations, and edema, Respiratory: Negative for shortness of breath, cough, wheezing, and pleuritic chest pain, Back: Negative for injury and pain, : Negative for injury, bleeding, discharge, and swelling, MS/Extremity: Negative for injury and deformity, Skin: Negative for injury, rash, and discoloration, Neuro: Negative for headache, weakness, numbness, tingling, and seizure activity. Psych: Negative for depression, anxiety, suicide ideation, homicidal ideation, and hallucinations, Allergy/Immunology: Negative for hives, rash, and allergies, Endocrine: Negative for neck swelling, polydipsia, polyuria, polyphagia, and marked weight changes, Hematologic/Lymphatic: Negative for swollen nodes, abnormal bleeding, and unusual bruising. 17:58 Abdomen/GI: Positive for abdominal pain, nausea and vomiting, Negative for diarrhea, constipation, black/tarry stool, rectal pain, rectal bleeding, bowel incontinence, flatulence. Exam: 17:58 Constitutional: This is a well developed, well nourished patient who is awake, alert, kdr and in no acute distress. Head/Face: Normocephalic, atraumatic. Eyes: Pupils equal round and reactive to light, extra-ocular motions intact. Lids and lashes normal. Conjunctiva and sclera are non-icteric and not injected. Cornea within normal limits. Periorbital areas with no swelling, redness, or edema. Neck: Trachea midline, no thyromegaly or masses palpated, and no cervical lymphadenopathy. Supple, full range of motion without nuchal rigidity, or vertebral point tenderness. No Meningismus. Chest/axilla: Normal chest wall appearance and motion. Nontender with no deformity. No lesions are appreciated. Cardiovascular: Regular rate and rhythm with a normal S1 and S2. No gallops, murmurs, or rubs. Normal PMI, no JVD. No pulse deficits. Respiratory: Lungs have equal breath sounds bilaterally, clear to auscultation and percussion. No rales, rhonchi or wheezes noted. No increased work of breathing, no retractions or nasal flaring. Back: No spinal tenderness. No costovertebral tenderness. Full range of motion. Skin: Warm, dry with normal turgor. Normal color with no rashes, no lesions, and no evidence of cellulitis. MS/ Extremity: Pulses equal, no cyanosis. Neurovascular intact. Full, normal range of motion. Neuro: Awake and alert, GCS 15, oriented to person, place, time, and situation. Cranial nerves II-XII grossly intact. Motor strength 5/5 in all extremities. Sensory grossly intact. Cerebellar exam normal. Normal gait. Psych: Awake, alert, with orientation to person, place and time. Behavior, mood, and affect are within normal limits. 17:58 Abdomen/GI: Inspection: abdomen appears normal. Vital Signs: 16:16 BP 160 / 77; Pulse 96; Resp 18; Temp 98.9; Pulse Ox 95% on R/A; Weight 68.04 kg; Height iw 5 ft. 7 in. ; Pain 9/10; 18:35 BP 172 / 89; Pulse 88; Resp 18; Pulse Ox 96% on R/A; nj1 19:57 BP 197 / 94; Pulse 88; Resp 20; Pulse Ox 97% ; jj7 21:00 BP 201 / 102; Pulse 91; Resp 18; Pulse Ox 98% ; jj7 22:00 BP 197 / 98; Pulse 98; Resp 17; Pulse Ox 97% ; jj7 22:47 BP 173 / 110; Pulse 96; Resp 18; Pulse Ox 99% ; jj7 16:16 Body Mass Index 23.49 (68.04 kg, 170.18 cm) 16:16 Pain Scale: Adult MDM: 22:26 Differential diagnosis: nephrolithiasis, pyelonephritis, UTI, chronic abd pain. Data kb reviewed: vital signs, nurses notes. Counseling: I had a detailed discussion with the patient and/or guardian regarding: the historical points, exam findings, and any diagnostic results supporting the discharge/admit diagnosis, lab results, the need for outpatient follow up, a family practitioner, to return to the emergency department if symptoms worsen or persist or if there are any questions or concerns that arise at home. 22:26 Patient medically screened. kb 22:45 ED course: Pt asymptomatic of BP. States she did not take her BP medication today. Will kb take it when she gets home. 08/26 16:29 Order name: CBC with Diff; Complete Time: 17:13 08/26 16:29 Order name: CMP; Complete Time: 17:25 08/26 16:29 Order name: Lipase; Complete Time: 17:25 08/26 16:29 Order name: Urinalysis w/ reflexes; Complete Time: 22:25 08/26 16:29 Order name: IV Saline Lock; Complete Time: 16:59 08/26 16:29 Order name: Labs collected and sent; Complete Time: 16:59 08/26 22:18 Order name: PO challenge; Complete Time: 23:54 kb Administered Medications: 17:48 Drug: Ketorolac IVP 15 mg Route: IVP; Site: left wrist; nj1 18:35 Follow up: Response: No adverse reaction nj1 17:48 Drug: metoCLOPramide IVP 20 mg Route: IVP; Site: left wrist; nj1 18:35 Follow up: Response: No adverse reaction nj1 21:26 Follow up: Response: No adverse reaction j7 18:35 Drug: Promethazine IM 12.5 mg Route: IM; Site: left gluteus; nj1 21:26 Follow up: Response: Nausea is decreased j7 20:02 Drug: NS 0.9% IV 1000 ml Route: IV; Rate: 1000 ml; Site: left wrist; jj7 21:07 Follow up: IV Status: Completed infusion j7 21:50 Drug: Ondansetron IVP 4 mg Route: IVP; Site: left wrist; j7 22:47 Follow up: Response: No adverse reaction 7 Disposition Summary: 08/26/22 22:26 Discharge Ordered Location: Home kb Condition: Stable kb Diagnosis - Abdominal pain, Generalized kb - UTI/ Urinary tract infection, site not specified kb Followup: kb - With: Emergency Department - When: As needed - Reason: Worsening of condition Followup: kb - With: Private Physician - When: 2 - 3 days - Reason: Recheck today's complaints, Continuance of care, Re-evaluation by your physician Discharge Instructions: - Discharge Summary Sheet kb - Nausea and Vomiting, Adult, [id number] kb - Abdominal Pain, Adult, [id number] kb Forms: - Medication Reconciliation Form kb - Thank You Letter kb - Antibiotic Education kb - Prescription Opioid Use kb Signatures: Dispatcher [employer] EDMS Emma Hussein, MANAGER COMPLETIONS-C MANAGER COMPLETIONS-Ckb Tera Raymond MD MD kdr Therese Logan RN RN iw Hu Gardner, MANAGER COMPLETIONS-C MANAGER COMPLETIONS-Cla1 Ez Byrd MD MD rn3 Aleyda Virk RN RN jj7 Berna Lomax RN RN nj1
[2022-08-27 00:41] VITALS: TEMP 98.9
[2022-08-27 00:47] VITALS: BP 173/110; O2SAT 99
== END 2022-08-26 23:51 | disposition home or self-care (01) ==
LOC: ER 16:08
DX: N39.0 Urinary tract infection, site not specified (principal); I10 Essential (primary) hypertension; E11.9 Type 2 diabetes mellitus without complications; Z88.8 Allergy status to other drugs, medicaments and biological substances
CPT/HCPCS: 85025; 36415; 81003; 83690; 80053; J2550; J2765; J2405; J7030

== ENCOUNTER 2022-08-27 12:34 | Emergency (ER) | payer OTHER ==
--- OUTSIDE RECORDS SUMMARY | 2022-08-27 12:48 | XMS REPORT | Continuity of Care Document ---
:1960 Author Organization [facility] t Address [address] [place] [address] [place] [id number] Care Team Providers Name Role Phone [facility] Primary Care Physician MATT SIMPSON Attending Clinician Unavailable MATT SIMPSON Attending Clinician Unavailable Doctor Unassigned, [place] Attending Clinician Unavailable WALLY KRISHNAMURTHY Attending Clinician Unavailable Natacha Brewster Attending Clinician Payers Payer Name Policy Type Policy Number Effective Date Expiration Date Sarina castelan [facility] [id number] 2017 00:00:00 PLUS Problems This patient has [...] ers OPHEN INGREDI 07-27 ity of 00:00: [place] [facility] Hmg-Coa Propensi Inactiv Reductas [...] Cente r Alcohol intake 2016-05-01 2016-05-01 Current [facility] es 00:00:00 00:00:00 non-drinker of Medical nter alcohol (finding) Sex Assigned At [birth year] [facility] 00:00:00 00:00:00 [facility] Smoking Status Start Date Stop Date Source Smokes tobacco daily 2016-05-01 00:00:00 [facility] Medications Ordered Filled Start [...] capsule 00:00: 00 OXcarbazepi 2017-0 Yes 600mg Q.[id number] Take [address] [facility] [address] ne 2-23 [id number] mg by Yasir (TRILEPTAL) 10:23: 3D mouth 3 Med ical 600 [facility] 59 (three) Center tablet times daily. PARoxetine 2017-0 Yes 40mg QD Take [address] (PAXIL) 40 2-23 [facility] 10:23: nightly. [address] OXcarbazepi 2017-0 Yes 600mg Q.[id number] Take [address] [facility] [address] ne 2-23 [id number] [facility] (TRILE[facility]AL) 10:23: 3D mouth 3 Med ical 600 [facility] 59 (three) Center tablet times daily. PARoxetine 2017-0 Yes 40mg QD Take [address] (PAXIL) 40 2-23 [facility] 10:23: nightly. [address] OXcarbazepi 2017-0 Yes 600mg Q.[id number] Take [address] [address] ne 2-23 [id number] [facility] by [facility] (TRILEPTAL) 10:23: 3D mouth 3 Med ical 600 MG 59 (three) Center tablet times daily. PARoxetine 2017-0 Yes 40mg QD Take [address] (PAXIL) 40 2-23 [facility] 10:23: nightly. [address] OXcarbazepi 2017-0 Yes 600mg Q.[id number] Take [address] [address] ne 2-23 [id number] [facility] by [facility] (TRILEPTAL) 10:23: 3D mouth 3 Med ical 600 MG 59 (three) Center tablet times daily. PARoxetine 2017-0 Yes 40mg QD Take [address] (PAXIL) 40 2-23 [facility] 10:23: nightly. [address] OXcarbazepi 2017-0 Yes 600mg Q.[id number] Take [address] [facility] [address] ne 2-23 [id number] [facility] by [facility] (TRILEPTAL) 10:23: 3D mouth 3 Med ical 600 MG 59 (three) Center tablet times daily. PARoxetine 2017-0 Yes 40mg QD Take [address] (PAXIL) 40 2-23 [facility] 10:23: nightly. [address] OXcarbazepi 2017-0 Yes 600mg Q.[id number] Take [address] [address] ne 2-23 [id number] mg by [facility] (TRILEPTAL) 10:23: 3D mouth 3 Med ical 600 MG 59 (three) Center tablet times daily. OXcarbazepi 2017-0 Yes 600mg Q.[id number] Take [address] [facility] [address] ne 2-23 [id number] mg by [facility] (TRILEPTAL) 10:23: 3D mouth 3 Med ical 600 MG 59 (three) Center tablet times daily. PARoxetine 2017-0 Yes 40mg QD Take [address] (PAXIL) 40 2-23 [facility] tablet 10:23: nightly. [address] OXcarbazepi 2017-0 Yes 600mg Q.[id number] Take [address] [facility] [address] ne 2-23 [id number] mg by [facility] (TRILEPTAL) 10:23: 3D mouth 3 Med ical 600 MG 59 (three) Center tablet times daily. PARoxetine 2017-0 Yes 40mg QD Take [address] (PAXIL) 40 2-23 [facility] tablet 10:23: nightly. [address] OXcarbazepi 2017-0 Yes 600mg Q.[id number] Take [address] [facility] [address] ne 2-23 [id number] mg by [facility] (TRILEPTAL) 10:23: 3D mouth 3 Med ical 600 MG 59 (three) Center tablet times daily. PARoxetine 2017-0 Yes 40mg QD Take [address] (PAXIL) 40 2-23 [facility] 10:23: nightly. [address] PARoxetine 2017-0 Yes 40mg QD Take [address] (PAXIL) 40 2-23 [facility] tablet 10:23: nightly. [address] OXcarbazepi 2017-0 Yes 600mg Q.[id number] Take [address] ne 2-23 [id number] mg by [facility] (TRILEPTAL) 10:23: 3D mouth 3 Med ical 600 MG 59 (three) Center tablet times daily. PARoxetine 2017-0 Yes 40mg QD Take [address] (PAXIL) 40 2-23 [facility] tablet 10:23: nightly. [address] OXcarbazepi 2017-0 Yes 600mg Q.[id number] Take [address] ne 2-23 [id number] mg by [facility] (TRILEPTAL) 10:23: 3D mouth 3 Med ical 600 MG 59 (three) Center tablet times daily. PARoxetine 2017-0 Yes 40mg QD Take [address] (PAXIL) 40 2-23 [facility] tablet 10:23: nightly. [address] 2017-0 Yes 600mg Q.[id number] Take [address] ne 2-23 [id number] mg by [facility] (TRILEPTAL) 10:23: 3D mouth 3 Med ical 600 MG 59 (three) Center tablet times daily. PARoxetine 2017-0 Yes 40mg QD Take [address] (PAXIL) 40 2-23 [facility] tablet 10:23: nightly. [address] 2017-0 Yes 600mg Q.[id number] Take [address] ne 2-23 [id number] mg by [facility] (TRILEPTAL) 10:23: 3D mouth 3 Med ical 600 MG 59 (three) Center tablet times daily. PARoxetine 2017-0 Yes 40mg QD Take [address] (PAXIL) 40 2-23 [facility] tablet 10:23: nightly. [address] 2017-0 Yes 600mg Q.[id number] Take [address] ne 2-23 [id number] mg by [facility] (TRILEPTAL) 10:23: 3D mouth 3 Med ical 600 MG 59 (three) Center tablet times daily. PARoxetine 2017-0 Yes 40mg QD Take [address] (PAXIL) 40 2-23 [facility] tablet 10:23: nightly. [address] 2017-0 Yes 600mg Q.[id number] Take [address] ne 2-23 [id number] mg by [facility] (TRILEPTAL) 10:23: 3D mouth 3 Med ical 600 MG 59 (three) Center tablet times daily. PARoxetine 2017-0 Yes 40mg QD Take [address] (PAXIL) 40 2-23 by [facility] tablet 10:23: nightly. [address] OXcarbazepi 2017-0 Yes 600mg Q.[id number] Take [address] [facility] ne 2-23 [id number] mg by [facility] (TRILEPTAL) 10:23: 3D mouth 3 Med ical 600 MG 59 (three) Center tablet times daily. PARoxetine 2017-0 Yes 40mg QD Take [address] (PAXIL) 40 2-23 by [facility] tablet 10:23: nightly. [facility] OXcarbazepi 2017-0 Yes 600mg Q.[id number] Take [address] ne 2-23 [id number] mg by [facility] (TRILEPTAL) 10:23: 3D mouth 3 Med ical 600 MG 59 (three) Center tablet times daily. PARoxetine 2017-0 Yes 40mg QD Take [address] (PAXIL) 40 2-23 by [facility] tablet 10:23: nightly. [facility] [address] [place] OXcarbazepi 2017-0 Yes 600mg Q.[id number] Take [address] ne 2-23 [id number] mg by [facility] (TRILEPTAL) 10:23: 3D mouth 3 Med ical 600 MG 59 (three) Center tablet times daily. PARoxetine 2017-0 Yes 40mg QD Take [address] (PAXIL) 40 2-23 by [facility] tablet 10:23: nightly. [facility] [address] [place] OXcarbazepi 2017-0 Yes 600mg Q.[id number] Take [address] ne 2-23 [id number] mg by [facility] (TRILEPTAL) 10:23: 3D mouth 3 Med ical 600 MG 59 (three) Center tablet times daily. OXcarbazepi 2017-0 Yes 600mg Q.[id number] Take [address] ne 2-23 [id number] mg by [facility] (TRILEPTAL) 10:23: 3D mouth 3 Med ical 600 MG 59 (three) Center tablet times daily. PARoxetine 2017-0 Yes 40mg QD Take [address] (PAXIL) 40 2-23 by [facility] tablet 10:23: nightly. [facility]jel[facility] [address] [place] OXcarbazepi 2017-0 Yes 600mg Q.[id number] Take [address] ne 2-23 [id number] mg by [facility] (TRILEPTAL) 10:23: 3D mouth 3 Med ical 600 MG 59 (three) Center tablet times daily. PARoxetine 2017-0 Yes 40mg QD Take [address] (PAXIL) 40 2-23 by [facility] tablet 10:23: nightly. [address] OXcarbazepi 2017-0 Yes 600mg Q.[id number] Take [address] ne 2-23 [id number] mg by [facility] (TRILEPTAL) 10:23: 3D mouth 3 Med ical 600 MG 59 (three) Center tablet times daily. PARoxetine 2017-0 Yes 40mg QD Take [address] (PAXIL) 40 2-23 by [facility] tablet 10:23: nightly. [address] PARoxetine 2017-0 Yes 40mg QD Take [address] (PAXIL) 40 2-23 by [facility] tablet 10:23: nightly. [address] OXcarbazepi 2017-0 Yes 600mg Q.[id number] Take [address] ne 2-23 [id number] mg by [facility] (TRILEPTAL) 10:23: 3D mouth 3 Med ical 600 MG 59 (three) Center tablet times daily. PARoxetine 2017-0 Yes 40mg QD Take [address] (PAXIL) 40 2-23 by [facility] tablet 10:23: nightly. [address] OXcarbazepi 2017-0 Yes 600mg Q.[id number] Take [address] ne 2-23 [id number] mg by [facility] (TRILEPTAL) 10:23: 3D mouth 3 Med ical 600 MG 59 (three) Center tablet times daily. PARoxetine 2017-0 Yes 40mg QD Take [address] (PAXIL) 40 2-23 by [facility] tablet 10:23: nightly. [address] OXcarbazepi 2017-0 Yes 600mg Q.[id number] Take [address] ne 2-23 [id number] mg by [facility] (TRILEPTAL) 10:23: 3D mouth 3 Med ical 600 MG 59 (three) Center tablet times daily. PARoxetine 2017-0 Yes 40mg QD Take [address] (PAXIL) 40 2-23 by [facility] tablet 10:23: nightly. [address] OXcarbazepi 2017-0 Yes 600mg Q.[id number] Take [address] ne 2-23 [id number] mg by [facility] (TRILEPTAL) 10:23: 3D mouth 3 Med ical 600 MG 59 (three) Center tablet times daily. PARoxetine 2017-0 Yes 40mg QD Take [address] (PAXIL) 40 2-23 by [facility] tablet 10:23: nightly. [address] OXcarbazepi 2017-0 Yes 600mg Q.[id number] Take [address] ne 2-23 [id number] mg by [facility] (TRILEPTAL) 10:23: 3D mouth 3 Med ical 600 MG 59 (three) Center tablet times daily. PARoxetine 2017-0 Yes 40mg QD Take [address] (PAXIL) 40 2-23 by mouth [facility] tablet 10:23: nightly. [address] OXcarbazepi 2017-0 Yes 600mg Q.[id number] Take [address] ne 2-23 [id number] mg by [facility] (TRILEPTAL) 10:23: 3D mouth 3 Med ical 600 MG 59 (three) Center tablet times daily. PARoxetine 2017-0 Yes 40mg QD Take [address] (PAXIL) 40 2-23 by [facility] tablet 10:23: nightly. [address] OXcarbazepi 2017-0 Yes 600mg Q.[id number] Take [address] ne 2-23 [id number] mg by [facility] (TRILEPTAL) 10:23: 3D mouth 3 Med ical 600 MG 59 (three) Center tablet times daily. PARoxetine 2017-0 Yes 40mg QD Take [address] (PAXIL) 40 2-23 by [facility] tablet 10:23: nightly. [address] OXcarbazepi 2017-0 Yes 600mg Q.[id number] Take [address] ne 2-23 [id number] mg by [facility] (TRILEPTAL) 10:23: 3D mouth 3 Med ical 600 MG 59 (three) Center tablet times daily. OXcarbazepi 2017-0 Yes 600mg Q.[id number] Take [address] ne 2-23 [id number] mg by [facility] (TRILEPTAL) 10:23: 3D mouth 3 Med ical 600 MG 59 (three) Center tablet times daily. PARoxetine 2017-0 Yes 40mg QD Take [address] (PAXIL) 40 2-23 by mouth [facility] tablet 10:23: nightly. [address] OXcarbazepi 2017-0 Yes 600mg Q.[id number] Take [address] ne 2-23 [id number] mg by [facility] (TRILEPTAL) 10:23: 3D mouth 3 Med ical 600 MG 59 (three) Center tablet times daily. PARoxetine 2017-0 Yes 40mg QD Take [address] (PAXIL) 40 2-23 by [facility] tablet 10:23: nightly. [address] OXcarbazepi 2017-0 Yes 600mg Q.[id number] Take [address] ne 2-23 [id number] mg by [facility] (TRILEPTAL) 10:23: 3D mouth 3 Med ical 600 MG 59 (three) Center tablet times daily. PARoxetine 2017-0 Yes 40mg QD Take [address] (PAXIL) 40 2-23 by mouth [facility] tablet 10:23: nightly. [address] OXcarbazepi 2017-0 Yes 600mg Q.[id number] Take [address] ne 2-23 [id number] mg by [facility] (TRILEPTAL) 10:23: 3D mouth 3 Med ical 600 MG 59 (three) Center tablet times daily. PARoxetine 2017-0 Yes 40mg QD Take [address] (PAXIL) 40 2-23 by mouth [facility] tablet 10:23: nightly. [address] PARoxetine 2017-0 Yes 40mg QD Take [address] (PAXIL) 40 2-23 by mouth [facility] tablet 10:23: nightly. [address] OXcarbazepi 2017-0 Yes 600mg Q.[id number] Take [address] ne 2-23 [id number] mg by [facility] (TRILEPTAL) 10:23: 3D mouth 3 Med ical 600 MG 59 (three) Center tablet times daily. PARoxetine 2017-0 Yes 40mg QD Take [address] (PAXIL) 40 2-23 by mouth [facility] tablet 10:23: nightly. [address] OXcarbazepi 2017-0 Yes 600mg Q.[id number] Take [address] [facility] ne 2-23 [id number] mg by [facility] (TRILEPTAL) 10:23: 3D mouth 3 Med ical 600 MG 59 (three) Center tablet times daily. PARoxetine 2017-0 Yes 40mg QD Take [address] (PAXIL) 40 2-23 by mouth [facility] tablet 10:23: nightly. [facility] Center OXcarbazepi 2017-0 Yes 600mg Q.[id number] Take [address] ne 2-23 [id number] mg by [facility] (TRILEPTAL) 10:23: 3D mouth 3 Med ical 600 MG 59 (three) Center tablet times daily. PARoxetine 2017-0 Yes 40mg QD Take [address] (PAXIL) 40 2-23 by mouth [facility] tablet 10:23: nightly. [facility] [address] [place] OXcarbazepi 2017-0 Yes 600mg Q.[id number] Take [address] ne 2-23 [id number] mg by [facility] (TRILEPTAL) 10:23: 3D mouth 3 Med ical 600 MG 59 (three) Center tablet times daily. PARoxetine 2017-0 Yes 40mg QD Take [address] (PAXIL) 40 2-23 by mouth [facility] tablet 10:23: nightly. [facility] [address] [place] OXcarbazepi 2017-0 Yes 600mg Q.[id number] Take [address] ne 2-23 [id number] mg by [facility] (TRILEPTAL) 10:23: 3D mouth 3 Med ical 600 MG 59 (three) Center tablet times daily. PARoxetine 2017-0 Yes 40mg QD Take [address] (PAXIL) 40 2-23 by mouth [facility] tablet 10:23: nightly. [facility] [address] [place] OXcarbazepi 2017-0 Yes 600mg Q.[id number] Take [address] ne 2-23 [id number] mg by [facility] (TRILEPTAL) 10:23: 3D mouth 3 Med ical 600 MG 59 (three) Center tablet times daily. PARoxetine 2017-0 Yes 40mg QD Take [address] (PAXIL) 40 2-23 by mouth [facility] tablet 10:23: nightly. [facility] [address] [place] OXcarbazepi 2017-0 Yes 600mg Q.[id number] Take [address] ne 2-23 [id number] mg by [facility] (TRILEPTAL) 10:23: 3D mouth 3 Med ical 600 MG 59 (three) Center tablet times daily. PARoxetine 2017-0 Yes 40mg QD Take [address] (PAXIL) 40 2-23 by mouth [facility] tablet 10:23: nightly. [address] OXcarbazepi 2017-0 Yes 600mg Q.[id number] Take [address] ne 2-23 [id number] mg by [facility] (TRILEPTAL) 10:23: 3D mouth 3 Med ical 600 MG 59 (three) Center tablet times daily. OXcarbazepi 2017-0 Yes 600mg Q.[id number] Take [address] ne 2-23 [id number] mg by [facility] (TRILEPTAL) 10:23: 3D mouth 3 Med ical 600 MG 59 (three) Center tablet times daily. PARoxetine 2017-0 Yes 40mg QD Take [address] (PAXIL) 40 2-23 by mouth [facility] tablet 10:23: nightly. [address] OXcarbazepi 2017-0 Yes 600mg Q.[id number] Take [address] ne 2-23 [id number] mg by [facility] (TRILEPTAL) 10:23: 3D mouth 3 Med ical 600 MG 59 (three) Center tablet times daily. PARoxetine 2017-0 Yes 40mg QD Take [address] (PAXIL) 40 2-23 by mouth [facility] tablet 10:23: nightly. [address] OXcarbazepi 2017-0 Yes 600mg Q.[id number] Take [address] ne 2-23 [id number] mg by [facility] (TRILEPTAL) 10:23: 3D mouth 3 Med ical 600 MG 59 (three) Center tablet times daily. PARoxetine 2017-0 Yes 40mg QD Take [address] (PAXIL) 40 2-23 by [facility] tablet 10:23: nightly. [address] PARoxetine 2017-0 Yes 40mg QD Take [address] (PAXIL) 40 2-23 by [facility] tablet 10:23: nightly. [address] OXcarbazepi 2017-0 Yes 600mg Q.[id number] Take [address] ne 2-23 [id number] mg by [facility] (TRILEPTAL) 10:23: 3D mouth 3 Med ical 600 MG 59 (three) Center tablet times daily. PARoxetine 2017-0 Yes 40mg QD Take [address] (PAXIL) 40 2-23 by [facility] tablet 10:23: nightly. [facility] [address] [place] OXcarbazepi 2017-0 Yes 600mg Q.[id number] Take [address] ne 2-23 [id number] mg by [facility] (TRILEPTAL) 10:23: 3D mouth 3 Med ical 600 MG 59 (three) Center tablet times daily. PARoxetine 2017-0 Yes 40mg QD Take [address] (PAXIL) 40 2-23 by [facility] tablet 10:23: nightly. [facility] [address] [place] LORazepam 2017-0 Yes 1mg Take 1 [facility] [...] Goal Plan of Care Note [code = 07355-4] Goal Plan of Care Note [code = 73221-4] Goal Plan of Care Note [code = 88185-0] Goal Plan of Care Note [code = 43733-4] Goal Plan of Care Note [code = 30722-9] Goal Plan of Care Note [code = 98284-3] Goal Plan of Care Note [code = 75432-6] Goal Plan of Care Note [code = 57865-0] Goal Plan of Care Note [code = 11871-0] Goal Plan of Care Note [code = 89474-2] Goal Plan of Care Note [code = 61055-2] Goal Plan of Care Note [code = 77394-4] Goal Plan of Care Note [code = 38474-2] Goal Plan of Care Note [code = 07060-5] Goal Plan of Care Note [code = 43898-3] Goal Plan of Care Note [code = 24655-1] Goal Plan of Care Note [code = 58799-8] Goal Plan of Care Note [code = 69896-4] Goal Plan of Care Note [code = 47347-9] Goal Plan of Care Note [code = 90167-9] Goal Plan of Care Note [code = 52784-8] Goal Plan of Care Note [code = 89234-6] Goal Plan of Care Note [code = 65497-8] Goal Plan of Care Note [code = 17259-1] Goal Plan of Care Note [code = 53447-1] Goal Plan of Care Note [code = 54169-7] Goal Plan of Care Note [code = 51748-9] Goal Plan of Care Note [code = 39873-5] Goal Plan of Care Note [code = 92972-6] Goal Plan of Care Note [code = 67692-6] Goal Plan of Care Note [code = 36384-6] Goal Plan of Care Note [code = 48030-3] Goal Plan of Care Note [code = 78329-2] Goal Plan of Care Note [code = 82626-6] Goal Plan of Care Note [code = 49491-7] Goal Plan of Care Note [code = 31755-9] Goal Plan of Care Note [code = 23736-8] Goal Plan of Care Note [code = 09866-2] Goal Plan of Care Note [code = 32779-7] Goal Plan of Care Note [code = 79909-7] Goal Plan of Care Note [code = 11611-4] Goal Plan of Care Note [code = 42396-7] Goal Plan of Care Note [code = 00952-3] Goal Plan of Care Note [code = 37818-1] Goal Plan of Care Note [code = 62952-4] Goal Plan of Care Note [code = 52707-8] Goal Plan of Care Note [code = 44011-2] Goal Plan of Care Note [code = 86566-3] Goal Plan of Care Note [code = 52114-8] Goal Plan of Care Note [code = 18661-5] Goal Plan of Care Note [code = 06854-7] Goal Plan of Care Note [code = 05694-9] Goal Plan of Care Note [code = 36115-6] Goal Plan of Care Note [code = 05487-8] Goal Plan of Care Note [code = 70307-2] Goal Plan of Care Note [code = 50492-5] Goal Plan of Care Note [code = 32021-6] Goal Plan of Care Note [code = 69064-6] Goal Plan of Care Note [code = 31492-6] Goal Plan of Care Note [code = 46778-6] Goal Plan of Care Note [code = 46418-2] Goal Plan of Care Note [code = 66971-0] Goal Plan of Care Note [code = 96812-1] Goal Plan of Care Note [code = 93199-1] Goal Plan of Care Note [code = 41066-1] Goal Plan of Care Note [code = 84498-0] Goal Plan of Care Note [code = 49505-0] Goal Plan of Care Note [code = 71229-5] Goal Plan of Care Note [code = 93029-3] Goal Plan of Care Note [code = 30063-4] Goal Plan of Care Note [code = 06215-2] Goal Plan of Care Note [code = 44208-2] Goal Plan of Care Note [code = 75862-9] Goal Plan of Care Note [code = 68712-6] Goal Plan of Care Note [code = 79428-7] Goal Plan of Care Note [code = 86966-7] Goal Plan of Care Note [code = 53611-7] Goal Plan of Care Note [code = 79059-4] Goal Plan of Care Note [code = 86536-2] Goal Plan of Care Note [code = 35920-7] Goal Plan of Care Note [code = 58732-4] Goal Plan of Care Note [code = 32892-9] Goal Plan of Care Note [code = 45210-2] Goal Plan of Care Note [code = 46826-1] Goal Plan of Care Note [code = 32063-4] Goal Plan of Care Note [code = 87350-4] Goal Plan of Care Note [code = 21431-9] Goal Plan of Care Note [code = 69808-1] Goal Plan of Care Note [code = 03387-7] Goal Plan of Care Note [code = 08861-0] Goal Plan of Care Note [code = 50127-1] Goal Plan of Care Note [code = 66970-0] Goal Plan of Care Note [code = 36679-0] Goal Plan of Care Note [code = 27296-9] Goal Plan of Care Note [code = 76441-4] Goal Plan of Care Note [code = 94930-0] Goal Plan of Care Note [code = 55159-5] Goal Plan of Care Note [code = 23709-5] Goal Plan of Care Note [code = 63070-1] Goal Plan of Care Note [code = 37483-2] Goal Plan of Care Note [code = 60814-0] Goal Plan of Care Note [code = 20185-1] Goal Plan of Care Note [code = 37563-8] Goal Plan of Care Note [code = 95906-4] Goal Plan of Care Note [code = 80838-7] Goal Plan of Care Note [code = 41301-3] Goal Plan of Care Note [code = 45477-0] Goal Plan of Care Note [code = 06096-8] Goal Plan of Care Note [code = 40241-3] Goal Plan of Care Note [code = 31257-1] Goal Plan of Care Note [code = 70891-0] Goal Plan of Care Note [code = 06119-2] Goal Plan of Care Note [code = 53442-5] Goal Plan of Care Note [code = 90042-7] Goal Plan of Care Note [code = 95986-2] Goal Plan of Care Note [code = 43330-8] Goal Plan of Care Note [code = 71736-1] Goal Plan of Care Note [code = 83932-6] Goal Plan of Care Note [code = 44622-5] Goal Plan of Care Note [code = 29366-0] Goal Plan of Care Note [code = 40488-9] Goal Plan of Care Note [code = 96729-8] Goal Plan of Care Note [code = 53853-9] Goal Plan of Care Note [code = 90990-3] Goal Plan of Care Note [code = 22547-8] Goal Plan of Care Note [code = 19236-9] Goal Plan of Care Note [code = 51451-4] Goal Plan of Care Note [code = 36641-1] Goal Plan of Care Note [code = 66082-3] Goal Plan of Care Note [code = 50458-9] Goal Plan of Care Note [code = 95692-7] Goal Plan of Care Note [code = 66387-8] Goal Plan of Care Note [code = 58661-1] Goal Plan of Care Note [code = 56458-5] Goal Plan of Care Note [code = 37822-0] Goal Plan of Care Note [code = 06890-6] Goal Plan of Care Note [code = 78168-6] Goal Plan of Care Note [code = 90022-0] Goal Plan of Care Note [code = 33170-3] Goal Plan of Care Note [code = 43130-8] Goal Plan of Care Note [code = 22865-3] Goal Plan of Care Note [code = 15585-1] Goal Plan of Care Note [code = 64352-8] Goal Plan of Care Note [code = 29415-4] Goal Plan of Care Note [code = 57644-4] Goal Plan of Care Note [code = 22628-4] Goal Plan of Care Note [code = 34057-2] Goal Plan of Care Note [code = 66231-1] Goal Plan of Care Note [code = 92396-9] Goal Plan of Care Note [code = 48497-3] Goal Plan of Care Note [code = 64867-7] Goal Plan of Care Note [code = 35806-1] Goal Plan of Care Note [code = 92071-4] Goal Plan of Care Note [code = 81322-4] Goal Plan of Care Note [code = 29511-4] Goal Plan of Care Note [code = 23681-7] Goal Plan of Care Note [code = 90543-7] Goal Plan of Care Note [code = 63755-7] Goal Plan of Care Note [code = 88675-2] Goal Plan of Care Note [code = 14302-7] Goal Plan of Care Note [code = 08575-4] Goal Plan of Care Note [code = 91834-0] Goal Plan of Care Note [code = 32431-1] Goal Plan of Care Note [code = 63483-7] Goal Plan of Care Note [code = 47195-2] Goal Plan of Care Note [code = 41937-4] Goal Plan of Care Note [code = 63445-3] Goal Plan of Care Note [code = 16027-5] Goal Plan of Care Note [code = 43554-8] Goal Plan of Care Note [code = 07777-9] Goal Plan of Care Note [code = 42815-3] Goal Plan of Care Note [code = 96314-1] Goal Plan of Care Note [code = 53726-9] Goal Plan of Care Note [code = 80580-9] Goal Plan of Care Note [code = 61998-5] Goal Plan of Care Note [code = 70884-9] Goal Plan of Care Note [code = 95809-8] Goal Plan of Care Note [code = 37505-1] Goal Plan of Care Note [code = 15604-0] Goal Plan of Care Note [code = 47355-5] Goal Plan of Care Note [code = 96206-0] Goal Plan of Care Note [code = 05046-7] Goal Plan of Care Note [code = 24573-3] Goal Plan of Care Note [code = 98228-0] Goal Plan of Care Note [code = 54405-2] Goal Plan of Care Note [code = 26502-9] Goal Plan of Care Note [code = 19522-4] Goal Plan of Care Note [code = 26645-0] Goal Plan of Care Note [code = 16011-5] Goal Plan of Care Note [code = 09517-6] Goal Plan of Care Note [code = 44535-4] Goal Plan of Care Note [code = 19928-8] Goal Plan of Care Note [code = 98201-4] Goal Plan of Care Note [code = 53580-3] Goal Plan of Care Note [code = 82686-4] Goal Plan of Care Note [code = 84911-1] Goal Plan of Care Note [code = 09428-0] Goal Plan of Care Note [code = 83524-4] Goal Plan of Care Note [code = 31694-8] Goal Plan of Care Note [code = 02647-4] Goal Plan of Care Note [code = 38330-3] Goal Plan of Care Note [code = 92956-5] Goal Plan of Care Note [code = 50552-7] Goal Plan of Care Note [code = 50878-7] Goal Plan of Care Note [code = 74049-0] Goal Plan of Care Note [code = 53762-3] Goal Plan of Care Note [code = 56117-8] Encounters Start End Encounter Admission Attending Care Care Encounter Source Date/Time Date/Time Type Type Clinicians Facility Department ID 2021-06-01 Outpatient [facility] [id number] [place] 01:36:29 [id number] [facility] 2022-05-24 2022-05-24 Outpatient SFA SFA [id number] 023 Cristian 10:36:59 10:36:59 0318 F Jerman 2022-02-11 2022-02-11 Outpatient SFA SFA [id number] 022 Cristian 09:04:48 09:04:48 1206 F Jerman 2022-02-10 2022-02-10 Outpatient SFA SFA [id number] 022 Cristian 09:29:34 09:29:34 1205 F Jerman 2022-02-10 2022-02-10 Outpatient [id number]- [id number] 0b 4h50i9-6 00:00:00 00:00:00 Visit 4089-4cab 089-4cab-9 -5ws4-k2f bf5-h9r457 962fyfy05 bafa93 2022-01-10 2022-01-10 Outpatient SFA SFA [id number] 022 Cristian 09:16:14 09:16:14 1104 F Jerman 2022-01-10 2022-01-10 Outpatient a3hiyfl7- [id number] f2 accaa6-a 00:00:00 00:00:00 Visit aca9-4c83 ca9-4c83-a -q7gx-mh6 7eb-bc13f3 3u4b645o4 f032f9 2021-12-19 2021-12-19 Outpatient SFA SFA [id number] 022 Cristian 16:11:31 16:11:31 1013 F Jerman 2021-12-19 2021-12-19 Outpatient [id number] 466cae-a 00:00:00 00:00:00 Visit n777-168y 770-441f-a -adae-62b amelia-62bace ombva80dd fd81af 2021-09-17 2021-09-17 Outpatient xri0taxj- [id number] aa o4kyxn-5 00:00:00 00:00:00 Visit 935a-4f50 35a-4f50-b -r88v-i4t 77d-c2ba85 [id number] 1264a6 2020-08-03 2020-08-03 Outpatient MATT VÁSQUEZ [facility] [id number] Univers 10:00:00 10:00:00 MATT SIMPSON [facility] 2020-07-25 2020-07-25 Orders Doctor ABE [id number] 00:00:00 00:00:00 Only Unassigned, BK 350.1.13.10 [place] [facility] [id number] [id number] 2019-09-26 2019-09-26 Outpatient R MARSRush [facility] [id number] Univers 16:00:00 16:00:00 WALLY [facility] 2018-10-21 2018-10-21 Telephone Gramm, [facility] [id number] 00:00:00 00:00:00 Natacha Nguyen 350.1.13.10 [facility].686 [id number] 204 Building Results Test Description Test Time Test Comments Results Result Comments Source TSH, THIRD GENERATION 2022-05-26 02:57:49 Test Item Value Reference Range Interpretation Comme nts TSH, THIRD GENERATION (test code = 2821) 6.350 UIU/ML 0.400-4.100 H LIPID [id number] 01:09:34 Test Item Value Reference Range Interpretation [...] , SEE CLIENT ANNOUNCE MENT AT [email or web address] [email or web address] [email or web address] LDL/HDL 2.73 RATIO <3.22 [facility] has important (test code = 2238) pathology staff changes effecti ve 05/07/2022. New pathology staff will provide uninter rupted, excellent patie nt care and clinical consultation. S ee URL: [email or web address]. UNLES S OTHERWISE INDIC ATED, ALL TESTING PER FORMED AT [facility], [facility]. [address] [place] [address] ISIDRA SUH DIRECTOR: Andrew WHITLEY CONNOR NUMBER [id number] CAP ACCREDITATION N O. [id number] HEMOGLOBIN [id number] 03:17:24 Test Item Value Reference Range Interpretation Comments HEMOGLOBIN A1c (test 6.4 % 4.2-5.6 H AMERIC AN DIABETES code = 55590) [facility] IDELINES FOR HGB A1C: [...] TESTING OR LABORATORY C ONSULTATION. TSH, THIRD [id number] 05:15:49 Test Item Value Reference Range Interpretation Comments TSH, THIRD GENERATION (test code 2.080 UIU/ML 0.400-4.100 = 2821) HEMOGLOBIN [id number] 03:46:00 Test Item Value Reference Range Interpretation Comments HEMOGLOBIN A1c (test 6.6 % 4.2-5.6 H AMERIC AN DIABETES code = 97145) ASSOC[employer]ATION IDE[employer]ES FOR HGB A1C: PREDIABETES/INC REASED [...] OTHERWIS E INDICATED, ALL TESTING PER FORMED [facility], [facility]. [address] [place] [address] 3944 LABORATORY DIRE CTOR: DIANA RUSS M.D. CLIA NUMBER [id number] [facility] [place]. [id number] LIPID [id number] 02:59:52 Test Item Value Reference Range Interpretation [...] MOREINFORMATION , SEE CLIENT ANNOUNCE MENT AT [email or web address] RISK RATIO LDL/HDL 4.02 RATIO <3.22 H (test code = 2238) [id number] 00:00:00 Test Item Value Reference Range Interpretation Comments TSH, THIRD GENERATION (test code 2.080 UIU/ML = 2821) [id number] 00:00:00 Test Item Value Reference Range Interpretation Comments TSH, THIRD GENERATION (test code 2.080 UIU/ML = 2821) [id number] 00:00:00 Test Item Value Reference Range Interpretation Comments TSH, THIRD GENERATION (test code 2.080 UIU/ML = 2821) LIPID [id number] 00:00:00 Test Item Value Reference Range Interpretation Comments CHOLESTEROL (test code = 2210) 292 MG/DL TRIGLYCERIDES (test code = 2232) 184 MG/DL HDL CHOLESTEROL (test code = 2220) 51 MG/DL CALC LDL CHOL (test code = 2237) 205 MG/DL RISK RATIO LDL/HDL (test code = 4.02 RATIO 2238) LIPID [id number] 00:00:00 Test Item Value Reference Range Interpretation Comments CHOLESTEROL (test code = 2210) 292 MG/DL TRIGLYCERIDES (test code = 2232) 184 MG/DL HDL CHOLESTEROL (test code = 2220) 51 MG/DL CALC LDL CHOL (test code = 2237) 205 MG/DL RISK RATIO LDL/HDL (test code = 4.02 RATIO 2238) HEMOGLOBIN [id number] 00:00:00 Test Item Value Reference Range Interpretation Comments HEMOGLOBIN A1c (test code = 95314) 6.6 % HEMOGLOBIN [id number] 00:00:00 Test Item Value Reference Range Interpretation Comments HEMOGLOBIN A1c (test code = 42619) 6.6 % HEMOGLOBIN [id number] 00:00:00 Test Item Value Reference Range Interpretation Comments HEMOGLOBIN A1c (test code = 54625) 6.6 % [id number] 00:00:00 Test Item Value Reference Range Interpretation Comments TSH, THIRD GENERATION (test code 2.080 UIU/ML = 2821) [id number] 00:00:00 Test Item Value Reference Range Interpretation Comments TSH, THIRD GENERATION (test code 2.080 UIU/ML = 2821) [id number] 00:00:00 Test Item Value Reference Range Interpretation Comments TSH, THIRD GENERATION (test code 2.080 UIU/ML = 2821) LIPID [id number] 00:00:00 Test Item Value Reference Range Interpretation Comments CHOLESTEROL (test code = 2210) 292 MG/DL TRIGLYCERIDES (test code = 2232) 184 MG/DL HDL CHOLESTEROL (test code = 2220) 51 MG/DL CALC LDL CHOL (test code = 2237) 205 MG/DL RISK RATIO LDL/HDL (test code = 4.02 RATIO 2238) LIPID [id number] 00:00:00 Test Item Value Reference Range Interpretation Comments CHOLESTEROL (test code = 2210) 292 MG/DL TRIGLYCERIDES (test code = 2232) 184 MG/DL HDL CHOLESTEROL (test code = 2220) 51 MG/DL CALC LDL CHOL (test code = 2237) 205 MG/DL RISK RATIO LDL/HDL (test code = 4.02 RATIO 2238) HEMOGLOBIN [id number] 00:00:00 Test Item Value Reference Range Interpretation Comments HEMOGLOBIN A1c (test code = 07094) 6.6 % HEMOGLOBIN [id number] 00:00:00 Test Item Value Reference Range Interpretation Comments HEMOGLOBIN A1c (test code = 58682) 6.6 % HEMOGLOBIN [id number] 00:00:00 Test Item Value Reference Range Interpretation Comments HEMOGLOBIN A1c (test code = 91716) 6.6 % [id number] 00:00:00 Test Item Value Reference Range Interpretation Comments TSH, THIRD GENERATION (test code 2.080 UIU/ML = 2821) [id number] 00:00:00 Test Item Value Reference Range Interpretation Comments TSH, THIRD GENERATION (test code 2.080 UIU/ML = 2821) LIPID [id number] 00:00:00 Test Item Value Reference Range Interpretation Comments CHOLESTEROL (test code = 2210) 292 MG/DL TRIGLYCERIDES (test code = 2232) 184 MG/DL HDL CHOLESTEROL (test code = 2220) 51 MG/DL CALC LDL CHOL (test code = 2237) 205 MG/DL RISK RATIO LDL/HDL (test code = 4.02 RATIO 2238) HEMOGLOBIN [id number] 00:00:00 Test Item Value Reference Range Interpretation Comments HEMOGLOBIN A1c (test code = 45314) 6.6 % HEMOGLOBIN [id number] 00:00:00 Test Item Value Reference Range Interpretation Comments HEMOGLOBIN A1c (test code = 19254) 6.6 % [id number] 00:00:00 Test Item Value Reference Range Interpretation Comments TSH, THIRD GENERATION (test code 2.080 UIU/ML = 2821) [id number] 00:00:00 Test Item Value Reference Range Interpretation Comments TSH, THIRD GENERATION (test code 2.080 UIU/ML = 2821) [id number] 00:00:00 Test Item Value Reference Range Interpretation Comments TSH, THIRD GENERATION (test code 2.080 UIU/ML = 2821) LIPID [id number] 00:00:00 Test Item Value Reference Range Interpretation Comments CHOLESTEROL (test code = 2210) 292 MG/DL TRIGLYCERIDES (test code = 2232) 184 MG/DL HDL CHOLESTEROL (test code = 2220) 51 MG/DL CALC LDL CHOL (test code = 2237) 205 MG/DL RISK RATIO LDL/HDL (test code = 4.02 RATIO 2238) LIPID [id number] 00:00:00 Test Item Value Reference Range Interpretation Comments CHOLESTEROL (test code = 2210) 292 MG/DL TRIGLYCERIDES (test code = 2232) 184 MG/DL HDL CHOLESTEROL (test code = 2220) 51 MG/DL CALC LDL CHOL (test code = 2237) 205 MG/DL RISK RATIO LDL/HDL (test code = 4.02 RATIO 2238) HEMOGLOBIN [id number] 00:00:00 Test Item Value Reference Range Interpretation Comments HEMOGLOBIN A1c (test code = 90513) 6.6 % HEMOGLOBIN [id number] 00:00:00 Test Item Value Reference Range Interpretation Comments HEMOGLOBIN A1c (test code = 19498) 6.6 % HEMOGLOBIN [id number] 00:00:00 Test Item Value Reference Range Interpretation Comments HEMOGLOBIN A1c (test code = 29065) 6.6 % HEMOGLOBIN [id number] 00:00:00 Test Item Value Reference Range Interpretation Comments HEMOGLOBIN A1c (test code = 06095) 6.8 % HEMOGLOBIN [id number] 00:00:00 Test Item Value Reference Range Interpretation Comments HEMOGLOBIN A1c (test code = 55251) 6.8 % HEMOGLOBIN [id number] 00:00:00 Test Item Value Reference Range Interpretation Comments HEMOGLOBIN A1c (test code = 86489) 6.8 % LIPID [id number] 00:00:00 Test Item Value Reference Range Interpretation Comments CHOLESTEROL (test code = 2210) 303 MG/DL TRIGLYCERIDES (test code = 2232) 191 MG/DL HDL CHOLESTEROL (test code = 2220) 61 MG/DL CALC LDL CHOL (test code = 2237) 205 MG/DL RISK RATIO LDL/HDL (test code = 3.36 RATIO 2238) LIPID [id number] 00:00:00 Test Item Value Reference Range Interpretation Comments CHOLESTEROL (test code = 2210) 303 MG/DL TRIGLYCERIDES (test code = 2232) 191 MG/DL HDL CHOLESTEROL (test code = 2220) 61 MG/DL CALC LDL CHOL (test code = 2237) 205 MG/DL RISK RATIO LDL/HDL (test code = 3.36 RATIO 2238) [id number] 00:00:00 Test Item Value Reference Range Interpretation Comments TSH, THIRD GENERATION (test code 0.769 UIU/ML = 2821) [id number] 00:00:00 Test Item Value Reference Range Interpretation Comments TSH, THIRD GENERATION (test code 0.769 UIU/ML = 2821) [id number] 00:00:00 Test Item Value Reference Range Interpretation Comments TSH, THIRD GENERATION (test code 0.769 UIU/ML = 2821) COMPREHENSIVE METABOLIC [id number] 00:00:00 Test Item Value Reference Range Interpretation Comments GLUCOSE (test code = 2217) 131 MG/DL BUN (test code = 2208) 13 MG/DL CREATININE (test code = 2214) 0.65 MG/DL eGFR AMER. (test code 113 ML/MIN/1.73 = 51001) eGFR NON- AMER. (test 97 ML/MIN/1.73 code = 40517) CALC BUN/CREAT (test code = 20 RATIO [...] code = 2219) 23 U/L COMPREHENSIVE METABOLIC [id number] 00:00:00 Test Item Value Reference Range Interpretation Comments GLUCOSE (test code = 2217) 131 MG/DL BUN (test code = 2208) 13 MG/DL CREATININE (test code = 2214) 0.65 MG/DL eGFR AMER. (test code 113 ML/MIN/1.73 = 12438) eGFR NON- AMER. (test 97 ML/MIN/1.73 code = 34440) CALC BUN/CREAT (test code = 20 RATIO [...] (test code = 2219) 23 U/L HEMOGLOBIN [id number] 00:00:00 Test Item Value Reference Range Interpretation Comments HEMOGLOBIN A1c (test code = 83896) 6.8 % HEMOGLOBIN [id number] 00:00:00 Test Item Value Reference Range Interpretation Comments HEMOGLOBIN A1c (test code = 95491) 6.8 % HEMOGLOBIN [id number] 00:00:00 Test Item Value Reference Range Interpretation Comments HEMOGLOBIN A1c (test code = 45093) 6.8 % LIPID [id number] 00:00:00 Test Item Value Reference Range Interpretation Comments CHOLESTEROL (test code = 2210) 303 MG/DL TRIGLYCERIDES (test code = 2232) 191 MG/DL HDL CHOLESTEROL (test code = 2220) 61 MG/DL CALC LDL CHOL (test code = 2237) 205 MG/DL RISK RATIO LDL/HDL (test code = 3.36 RATIO 2238) LIPID [id number] 00:00:00 Test Item Value Reference Range Interpretation Comments CHOLESTEROL (test code = 2210) 303 MG/DL TRIGLYCERIDES (test code = 2232) 191 MG/DL HDL CHOLESTEROL (test code = 2220) 61 MG/DL CALC LDL CHOL (test code = 2237) 205 MG/DL RISK RATIO LDL/HDL (test code = 3.36 RATIO 2238) [id number] 00:00:00 Test Item Value Reference Range Interpretation Comments TSH, THIRD GENERATION (test code 0.769 UIU/ML = 2821) [id number] 00:00:00 Test Item Value Reference Range Interpretation Comments TSH, THIRD GENERATION (test code 0.769 UIU/ML = 2821) [id number] 00:00:00 Test Item Value Reference Range Interpretation Comments TSH, THIRD GENERATION (test code 0.769 UIU/ML = 2821) COMPREHENSIVE METABOLIC [id number] 00:00:00 Test Item Value Reference Range Interpretation Comments GLUCOSE (test code = 2217) 131 MG/DL BUN (test code = 2208) 13 MG/DL CREATININE (test code = 2214) 0.65 MG/DL eGFR AMER. (test code 113 ML/MIN/1.73 = 02202) eGFR NON- AMER. (test 97 ML/MIN/1.73 code = 78473) CALC BUN/CREAT (test code = 20 RATIO [...] code = 2219) 23 U/L COMPREHENSIVE METABOLIC [id number] 00:00:00 Test Item Value Reference Range Interpretation Comments GLUCOSE (test code = 2217) 131 MG/DL BUN (test code = 2208) 13 MG/DL CREATININE (test code = 2214) 0.65 MG/DL eGFR AMER. (test code 113 ML/MIN/1.73 = 17607) eGFR NON- AMER. (test 97 ML/MIN/1.73 code = 85810) CALC BUN/CREAT (test code = 20 RATIO [...] (test code = 2219) 23 U/L HEMOGLOBIN [id number] 00:00:00 Test Item Value Reference Range Interpretation Comments HEMOGLOBIN A1c (test code = 38047) 6.8 % HEMOGLOBIN [id number] 00:00:00 Test Item Value Reference Range Interpretation Comments HEMOGLOBIN A1c (test code = 99901) 6.8 % LIPID [id number] 00:00:00 Test Item Value Reference Range Interpretation Comments CHOLESTEROL (test code = 2210) 303 MG/DL TRIGLYCERIDES (test code = 2232) 191 MG/DL HDL CHOLESTEROL (test code = 2220) 61 MG/DL CALC LDL CHOL (test code = 2237) 205 MG/DL RISK RATIO LDL/HDL (test code = 3.36 RATIO 2238) [id number] 00:00:00 Test Item Value Reference Range Interpretation Comments TSH, THIRD GENERATION (test code 0.769 UIU/ML = 2821) [id number] 00:00:00 Test Item Value Reference Range Interpretation Comments TSH, THIRD GENERATION (test code 0.769 UIU/ML = 2821) COMPREHENSIVE METABOLIC [id number] 00:00:00 Test Item Value Reference Range Interpretation Comments GLUCOSE (test code = 2217) 131 MG/DL BUN (test code = 2208) 13 MG/DL CREATININE (test code = 2214) 0.65 MG/DL eGFR AMER. (test code 113 ML/MIN/1.73 = 25444) eGFR NON- AMER. (test 97 ML/MIN/1.73 code = 39937) CALC BUN/CREAT (test code = 20 RATIO [...] (test code = 2219) 23 U/L HEMOGLOBIN [id number] 00:00:00 Test Item Value Reference Range Interpretation Comments HEMOGLOBIN A1c (test code = 67813) 6.8 % HEMOGLOBIN [id number] 00:00:00 Test Item Value Reference Range Interpretation Comments HEMOGLOBIN A1c (test code = 84959) 6.8 % HEMOGLOBIN [id number] 00:00:00 Test Item Value Reference Range Interpretation Comments HEMOGLOBIN A1c (test code = 65294) 6.8 % LIPID [id number] 00:00:00 Test Item Value Reference Range Interpretation Comments CHOLESTEROL (test code = 2210) 303 MG/DL TRIGLYCERIDES (test code = 2232) 191 MG/DL HDL CHOLESTEROL (test code = 2220) 61 MG/DL CALC LDL CHOL (test code = 2237) 205 MG/DL RISK RATIO LDL/HDL (test code = 3.36 RATIO 2238) LIPID [id number] 00:00:00 Test Item Value Reference Range Interpretation Comments CHOLESTEROL (test code = 2210) 303 MG/DL TRIGLYCERIDES (test code = 2232) 191 MG/DL HDL CHOLESTEROL (test code = 2220) 61 MG/DL CALC LDL CHOL (test code = 2237) 205 MG/DL RISK RATIO LDL/HDL (test code = 3.36 RATIO 2238) [id number] 00:00:00 Test Item Value Reference Range Interpretation Comments TSH, THIRD GENERATION (test code 0.769 UIU/ML = 2821) [id number] 00:00:00 Test Item Value Reference Range Interpretation Comments TSH, THIRD GENERATION (test code 0.769 UIU/ML = 2821) [id number] 00:00:00 Test Item Value Reference Range Interpretation Comments TSH, THIRD GENERATION (test code 0.769 UIU/ML = 2821) COMPREHENSIVE METABOLIC [id number] 00:00:00 Test Item Value Reference Range Interpretation Comments GLUCOSE (test code = 2217) 131 MG/DL BUN (test code = 2208) 13 MG/DL CREATININE (test code = 2214) 0.65 MG/DL eGFR AMER. (test code 113 ML/MIN/1.73 = 70649) eGFR NON- AMER. (test 97 ML/MIN/1.73 code = 20703) CALC BUN/CREAT (test code = 20 RATIO [...] code = 2219) 23 U/L COMPREHENSIVE METABOLIC [id number] 00:00:00 Test Item Value Reference Range Interpretation Comments GLUCOSE (test code = 2217) 131 MG/DL BUN (test code = 2208) 13 MG/DL CREATININE (test code = 2214) 0.65 MG/DL eGFR AMER. (test code 113 ML/MIN/1.73 = 31463) eGFR NON- AMER. (test 97 ML/MIN/1.73 code = 16159) CALC BUN/CREAT (test code = 20 RATIO [...] (test code = 2219) 23 U/L HEMOGLOBIN [id number] 00:00:00 Test Item Value Reference Range Interpretation Comments HEMOGLOBIN A1c (test code = 40698) 6.6 % HEMOGLOBIN [id number] 00:00:00 Test Item Value Reference Range Interpretation Comments HEMOGLOBIN A1c (test code = 97106) 6.6 % HEMOGLOBIN [id number] 00:00:00 Test Item Value Reference Range Interpretation Comments HEMOGLOBIN A1c (test code = 58714) 6.6 % LIPID [id number] 00:00:00 Test Item Value Reference Range Interpretation Comments CHOLESTEROL (test code = 2210) 261 MG/DL TRIGLYCERIDES (test code = 2232) 159 MG/DL HDL CHOLESTEROL (test code = 2220) 82 MG/DL CALC LDL CHOL (test code = 2237) 150 MG/DL RISK RATIO LDL/HDL (test code = 1.83 RATIO 2238) LIPID [id number] 00:00:00 Test Item Value Reference Range Interpretation Comments CHOLESTEROL (test code = 2210) 261 MG/DL TRIGLYCERIDES (test code = 2232) 159 MG/DL HDL CHOLESTEROL (test code = 2220) 82 MG/DL CALC LDL CHOL (test code = 2237) 150 MG/DL RISK RATIO LDL/HDL (test code = 1.83 RATIO 2238) COMPREHENSIVE METABOLIC [id number] 00:00:00 Test Item Value Reference Range Interpretation Comments GLUCOSE (test code = 2217) 144 MG/DL BUN (test code = 2208) 15 MG/DL CREATININE (test code = 2214) 0.85 MG/DL eGFR AMER. (test code 87 ML/MIN/1.73 = 75290) eGFR NON- AMER. (test 75 ML/MIN/1.73 code = 32759) CALC BUN/CREAT (test code = 18 RATIO [...] code = 2219) 50 U/L COMPREHENSIVE METABOLIC [id number] 00:00:00 Test Item Value Reference Range Interpretation Comments GLUCOSE (test code = 2217) 144 MG/DL BUN (test code = 2208) 15 MG/DL CREATININE (test code = 2214) 0.85 MG/DL eGFR AMER. (test code 87 ML/MIN/1.73 = 71937) eGFR NON- AMER. (test 75 ML/MIN/1.73 code = 56655) CALC BUN/CREAT (test code = 18 RATIO [...] THYROX. BIND. CAPAC. (test code 1.1 = 73430) T4 (THYROXINE) (test code = 4.3 UG/DL 2819) CORRECTED T4 (FTI) (test code = 3.9 UG/DL 2820) TSH, THIRD GENERATION (test 18.900 UIU/ML code = 2821) THYROID II PROFILE (T3U, T4, T7, TSH)2020-05-23 00:00:00 Test Item Value Reference Range Interpretation Comments T-UPTAKE (test code = 2817) 30.2 % THYROX. BIND. CAPAC. (test code 1.1 = 19648) T4 (THYROXINE) (test code = 4.3 UG/DL 2819) CORRECTED T4 (FTI) (test code = 3.9 UG/DL 2820) TSH, THIRD GENERATION (test 18.900 UIU/ML code = 2821) HEMOGLOBIN [id number] 00:00:00 Test Item Value Reference Range Interpretation Comments HEMOGLOBIN A1c (test code = 40780) 6.6 % HEMOGLOBIN [id number] 00:00:00 Test Item Value Reference Range Interpretation Comments HEMOGLOBIN A1c (test code = 57293) 6.6 % HEMOGLOBIN [id number] 00:00:00 Test Item Value Reference Range Interpretation Comments HEMOGLOBIN A1c (test code = 74729) 6.6 % LIPID [id number] 00:00:00 Test Item Value Reference Range Interpretation Comments CHOLESTEROL (test code = 2210) 261 MG/DL TRIGLYCERIDES (test code = 2232) 159 MG/DL HDL CHOLESTEROL (test code = 2220) 82 MG/DL CALC LDL CHOL (test code = 2237) 150 MG/DL RISK RATIO LDL/HDL (test code = 1.83 RATIO 2238) LIPID [id number] 00:00:00 Test Item Value Reference Range Interpretation Comments CHOLESTEROL (test code = 2210) 261 MG/DL TRIGLYCERIDES (test code = 2232) 159 MG/DL HDL CHOLESTEROL (test code = 2220) 82 MG/DL CALC LDL CHOL (test code = 2237) 150 MG/DL RISK RATIO LDL/HDL (test code = 1.83 RATIO 2238) COMPREHENSIVE METABOLIC [id number] 00:00:00 Test Item Value Reference Range Interpretation Comments GLUCOSE (test code = 2217) 144 MG/DL BUN (test code = 2208) 15 MG/DL CREATININE (test code = 2214) 0.85 MG/DL eGFR AMER. (test code 87 ML/MIN/1.73 = 76113) eGFR NON- AMER. (test 75 ML/MIN/1.73 code = 59610) CALC BUN/CREAT (test code = 18 RATIO [...] code = 2219) 50 U/L COMPREHENSIVE METABOLIC [id number] 00:00:00 Test Item Value Reference Range Interpretation Comments GLUCOSE (test code = 2217) 144 MG/DL BUN (test code = 2208) 15 MG/DL CREATININE (test code = 2214) 0.85 MG/DL eGFR AMER. (test code 87 ML/MIN/1.73 = 96198) eGFR NON- AMER. (test 75 ML/MIN/1.73 code = 36598) CALC BUN/CREAT (test code = 18 RATIO [...] THYROX. BIND. CAPAC. (test code 1.1 = 94972) T4 (THYROXINE) (test code = 4.3 UG/DL 2819) CORRECTED T4 (FTI) (test code = 3.9 UG/DL 2820) TSH, THIRD GENERATION (test 18.900 UIU/ML code = 2821) THYROID II PROFILE (T3U, T4, T7, TSH)2020-05-23 00:00:00 Test Item Value Reference Range Interpretation Comments T-UPTAKE (test code = 7) 30.2 % THYROX. BIND. CAPAC. (test code 1.1 = 44781) T4 (THYROXINE) (test code = 4.3 UG/DL 2819) CORRECTED T4 (FTI) (test code = 3.9 UG/DL 2820) TSH, THIRD GENERATION (test 18.900 UIU/ML code = 2821) HEMOGLOBIN [id number] 00:00:00 Test Item Value Reference Range Interpretation Comments HEMOGLOBIN A1c (test code = 94860) 6.6 % HEMOGLOBIN [id number] 00:00:00 Test Item Value Reference Range Interpretation Comments HEMOGLOBIN A1c (test code = 35420) 6.6 % LIPID [id number] 00:00:00 Test Item Value Reference Range Interpretation Comments CHOLESTEROL (test code = 2210) 261 MG/DL TRIGLYCERIDES (test code = 2232) 159 MG/DL HDL CHOLESTEROL (test code = 2220) 82 MG/DL CALC LDL CHOL (test code = 2237) 150 MG/DL RISK RATIO LDL/HDL (test code = 1.83 RATIO 2238) COMPREHENSIVE METABOLIC [id number] 00:00:00 Test Item Value Reference Range Interpretation Comments GLUCOSE (test code = 2217) 144 MG/DL BUN (test code = 2208) 15 MG/DL CREATININE (test code = 2214) 0.85 MG/DL eGFR AMER. (test code 87 ML/MIN/1.73 = 78261) eGFR NON- AMER. (test 75 ML/MIN/1.73 code = 74679) CALC BUN/CREAT (test code = 18 RATIO [...] THYROX. BIND. CAPAC. (test code 1.1 = 97279) T4 (THYROXINE) (test code = 4.3 UG/DL 2819) CORRECTED T4 (FTI) (test code = 3.9 UG/DL 2820) TSH, THIRD GENERATION (test 18.900 UIU/ML code = 2821) HEMOGLOBIN [id number] 00:00:00 Test Item Value Reference Range Interpretation Comments HEMOGLOBIN A1c (test code = 68784) 6.6 % HEMOGLOBIN [id number] 00:00:00 Test Item Value Reference Range Interpretation Comments HEMOGLOBIN A1c (test code = 54623) 6.6 % HEMOGLOBIN [id number] 00:00:00 Test Item Value Reference Range Interpretation Comments HEMOGLOBIN A1c (test code = 58339) 6.6 % LIPID [id number] 00:00:00 Test Item Value Reference Range Interpretation Comments CHOLESTEROL (test code = 2210) 261 MG/DL TRIGLYCERIDES (test code = 2232) 159 MG/DL HDL CHOLESTEROL (test code = 2220) 82 MG/DL CALC LDL CHOL (test code = 2237) 150 MG/DL RISK RATIO LDL/HDL (test code = 1.83 RATIO 2238) LIPID [id number] 00:00:00 Test Item Value Reference Range Interpretation Comments CHOLESTEROL (test code = 2210) 261 MG/DL TRIGLYCERIDES (test code = 2232) 159 MG/DL HDL CHOLESTEROL (test code = 2220) 82 MG/DL CALC LDL CHOL (test code = 2237) 150 MG/DL RISK RATIO LDL/HDL (test code = 1.83 RATIO 2238) COMPREHENSIVE METABOLIC [id number] 00:00:00 Test Item Value Reference Range Interpretation Comments GLUCOSE (test code = 2217) 144 MG/DL BUN (test code = 2208) 15 MG/DL CREATININE (test code = 2214) 0.85 MG/DL eGFR AMER. (test code 87 ML/MIN/1.73 = 54160) eGFR NON- AMER. (test 75 ML/MIN/1.73 code = 01091) CALC BUN/CREAT (test code = 18 RATIO [...] code = 2219) 50 U/L COMPREHENSIVE METABOLIC [id number] 00:00:00 Test Item Value Reference Range Interpretation Comments GLUCOSE (test code = 2217) 144 MG/DL BUN (test code = 2208) 15 MG/DL CREATININE (test code = 2214) 0.85 MG/DL eGFR AMER. (test code 87 ML/MIN/1.73 = 30910) eGFR NON- AMER. (test 75 ML/MIN/1.73 code = 12927) CALC BUN/CREAT (test code = 18 RATIO [...] THYROX. BIND. CAPAC. (test code 1.1 = 11308) T4 (THYROXINE) (test code = 4.3 UG/DL 2819) CORRECTED T4 (FTI) (test code = 3.9 UG/DL 2820) TSH, THIRD GENERATION (test 18.900 UIU/ML code = 2821) THYROID II PROFILE (T3U, T4, T7, TSH)[id number] 00:00:00 Test Item Value Reference Range Interpretation Comments T-UPTAKE (test code = 2817) 30.2 % THYROX. BIND. CAPAC. (test code 1.1 = 11422) T4 (THYROXINE) (test code = 4.3 UG/DL 2819) CORRECTED T4 (FTI) (test code = 3.9 UG/DL 2820) TSH, THIRD GENERATION (test 18.900 UIU/ML code = 2821) HEMOGLOBIN [id number] 00:00:00 Test Item Value Reference Range Interpretation Comments HEMOGLOBIN A1c (test code = 38920) 6.7 % HEMOGLOBIN [id number] 00:00:00 Test Item Value Reference Range Interpretation Comments HEMOGLOBIN A1c (test code = 51231) 6.7 % HEMOGLOBIN [id number] 00:00:00 Test Item Value Reference Range Interpretation Comments HEMOGLOBIN A1c (test code = 86491) 6.7 % LIPID [id number] 00:00:00 Test Item Value Reference Range Interpretation Comments CHOLESTEROL (test code = 2210) 267 MG/DL TRIGLYCERIDES (test code = 2232) 137 MG/DL HDL CHOLESTEROL (test code = 2220) 48 MG/DL CALC LDL CHOL (test code = 2237) 192 MG/DL RISK RATIO LDL/HDL (test code = 4.00 RATIO 2238) LIPID [id number] 00:00:00 Test Item Value Reference Range Interpretation Comments CHOLESTEROL (test code = 2210) 267 MG/DL TRIGLYCERIDES (test code = 2232) 137 MG/DL HDL CHOLESTEROL (test code = 2220) 48 MG/DL CALC LDL CHOL (test code = 2237) 192 MG/DL RISK RATIO LDL/HDL (test code = 4.00 RATIO 2238) COMPREHENSIVE METABOLIC [id number] 00:00:00 Test Item Value Reference Range Interpretation Comments GLUCOSE (test code = 2217) 155 MG/DL BUN (test code = 2208) 14 MG/DL CREATININE (test code = 2214) 0.52 MG/DL eGFR AMER. (test code 122 ML/MIN/1.73 = 51290) eGFR NON- AMER. (test 105 ML/MIN/1.73 code = 28257) CALC BUN/CREAT (test code = 27 RATIO [...] code = 2219) 27 U/L COMPREHENSIVE METABOLIC [id number] 00:00:00 Test Item Value Reference Range Interpretation Comments GLUCOSE (test code = 2217) 155 MG/DL BUN (test code = 2208) 14 MG/DL CREATININE (test code = 2214) 0.52 MG/DL eGFR AMER. (test code 122 ML/MIN/1.73 = 45497) eGFR NON- AMER. (test 105 ML/MIN/1.73 code = 86597) CALC BUN/CREAT (test code = 27 RATIO [...] THYROX. BIND. CAPAC. (test code 1.0 = 56139) T4 (THYROXINE) (test code = 4.7 UG/DL 2819) CORRECTED T4 (FTI) (test code = 4.7 UG/DL 2820) TSH, THIRD GENERATION (test code 0.201 UIU/ML = 2821) THYROID II PROFILE (T3U, T4, T7, TSH)2019 00:00:00 Test Item Value Reference Range Interpretation Comments T-UPTAKE (test code = 2816) 33.1 % THYROX. BIND. CAPAC. (test code 1.0 = 55394) T4 (THYROXINE) (test code = 4.7 UG/DL 2819) CORRECTED T4 (FTI) (test code = 4.7 UG/DL 2820) TSH, THIRD GENERATION (test code 0.201 UIU/ML = 2821) HEMOGLOBIN [id number] 00:00:00 Test Item Value Reference Range Interpretation Comments HEMOGLOBIN A1c (test code = 80188) 6.7 % HEMOGLOBIN [id number] 00:00:00 Test Item Value Reference Range Interpretation Comments HEMOGLOBIN A1c (test code = 64315) 6.7 % HEMOGLOBIN [id number] 00:00:00 Test Item Value Reference Range Interpretation Comments HEMOGLOBIN A1c (test code = 82090) 6.7 % LIPID [id number] 00:00:00 Test Item Value Reference Range Interpretation Comments CHOLESTEROL (test code = 2210) 267 MG/DL TRIGLYCERIDES (test code = 2232) 137 MG/DL HDL CHOLESTEROL (test code = 2220) 48 MG/DL CALC LDL CHOL (test code = 2237) 192 MG/DL RISK RATIO LDL/HDL (test code = 4.00 RATIO 2238) LIPID [id number] 00:00:00 Test Item Value Reference Range Interpretation Comments CHOLESTEROL (test code = 2210) 267 MG/DL TRIGLYCERIDES (test code = 2232) 137 MG/DL HDL CHOLESTEROL (test code = 2220) 48 MG/DL CALC LDL CHOL (test code = 2237) 192 MG/DL RISK RATIO LDL/HDL (test code = 4.00 RATIO 2238) COMPREHENSIVE METABOLIC [id number] 00:00:00 Test Item Value Reference Range Interpretation Comments GLUCOSE (test code = 2217) 155 MG/DL BUN (test code = 2208) 14 MG/DL CREATININE (test code = 2214) 0.52 MG/DL eGFR AMER. (test code 122 ML/MIN/1.73 = 64162) eGFR NON- AMER. (test 105 ML/MIN/1.73 code = 86920) CALC BUN/CREAT (test code = 27 RATIO [...] code = 2219) 27 U/L COMPREHENSIVE METABOLIC [id number] 00:00:00 Test Item Value Reference Range Interpretation Comments GLUCOSE (test code = 2217) 155 MG/DL BUN (test code = 2208) 14 MG/DL CREATININE (test code = 2214) 0.52 MG/DL eGFR AMER. (test code 122 ML/MIN/1.73 = 84190) eGFR NON- AMER. (test 105 ML/MIN/1.73 code = 78958) CALC BUN/CREAT (test code = 27 RATIO [...] THYROX. BIND. CAPAC. (test code 1.0 = 96300) T4 (THYROXINE) (test code = 4.7 UG/DL 2819) CORRECTED T4 (FTI) (test code = 4.7 UG/DL 2820) TSH, THIRD GENERATION (test code 0.201 UIU/ML = 2821) THYROID II PROFILE (T3U, T4, T7, TSH)2019 00:00:00 Test Item Value Reference Range Interpretation Comments T-UPTAKE (test code = 2817) 33.1 % THYROX. BIND. CAPAC. (test code 1.0 = 05424) T4 (THYROXINE) (test code = 4.7 UG/DL 2819) CORRECTED T4 (FTI) (test code = 4.7 UG/DL 2820) TSH, THIRD GENERATION (test code 0.201 UIU/ML = 2821) HEMOGLOBIN [id number] 00:00:00 Test Item Value Reference Range Interpretation Comments HEMOGLOBIN A1c (test code = 98898) 6.7 % HEMOGLOBIN [id number] 00:00:00 Test Item Value Reference Range Interpretation Comments HEMOGLOBIN A1c (test code = 31523) 6.7 % LIPID [id number] 00:00:00 Test Item Value Reference Range Interpretation Comments CHOLESTEROL (test code = 2210) 267 MG/DL TRIGLYCERIDES (test code = 2232) 137 MG/DL HDL CHOLESTEROL (test code = 2220) 48 MG/DL CALC LDL CHOL (test code = 2237) 192 MG/DL RISK RATIO LDL/HDL (test code = 4.00 RATIO 2238) COMPREHENSIVE METABOLIC [id number] 00:00:00 Test Item Value Reference Range Interpretation Comments GLUCOSE (test code = 2217) 155 MG/DL BUN (test code = 2208) 14 MG/DL CREATININE (test code = 2214) 0.52 MG/DL eGFR AMER. (test code 122 ML/MIN/1.73 = 73246) eGFR NON- AMER. (test 105 ML/MIN/1.73 code = 21009) CALC BUN/CREAT (test code = 27 RATIO [...] THYROX. BIND. CAPAC. (test code 1.0 = 97142) T4 (THYROXINE) (test code = 4.7 UG/DL 2819) CORRECTED T4 (FTI) (test code = 4.7 UG/DL 2820) TSH, THIRD GENERATION (test code 0.201 UIU/ML = 2821) HEMOGLOBIN [id number] 00:00:00 Test Item Value Reference Range Interpretation Comments HEMOGLOBIN A1c (test code = 13658) 6.7 % HEMOGLOBIN [id number] 00:00:00 Test Item Value Reference Range Interpretation Comments HEMOGLOBIN A1c (test code = 52662) 6.7 % HEMOGLOBIN [id number] 00:00:00 Test Item Value Reference Range Interpretation Comments HEMOGLOBIN A1c (test code = 33545) 6.7 % LIPID [id number] 00:00:00 Test Item Value Reference Range Interpretation Comments CHOLESTEROL (test code = 2210) 267 MG/DL TRIGLYCERIDES (test code = 2232) 137 MG/DL HDL CHOLESTEROL (test code = 2220) 48 MG/DL CALC LDL CHOL (test code = 2237) 192 MG/DL RISK RATIO LDL/HDL (test code = 4.00 RATIO 2238) LIPID [id number] 00:00:00 Test Item Value Reference Range Interpretation Comments CHOLESTEROL (test code = 2210) 267 MG/DL TRIGLYCERIDES (test code = 2232) 137 MG/DL HDL CHOLESTEROL (test code = 2220) 48 MG/DL CALC LDL CHOL (test code = 2237) 192 MG/DL RISK RATIO LDL/HDL (test code = 4.00 RATIO 2238) COMPREHENSIVE METABOLIC [id number] 00:00:00 Test Item Value Reference Range Interpretation Comments GLUCOSE (test code = 2217) 155 MG/DL BUN (test code = 2208) 14 MG/DL CREATININE (test code = 2214) 0.52 MG/DL eGFR AMER. (test code 122 ML/MIN/1.73 = 26517) eGFR NON- AMER. (test 105 ML/MIN/1.73 code = 07114) CALC BUN/CREAT (test code = 27 RATIO [...] code = 2219) 27 U/L COMPREHENSIVE METABOLIC [id number] 00:00:00 Test Item Value Reference Range Interpretation Comments GLUCOSE (test code = 2217) 155 MG/DL BUN (test code = 2208) 14 MG/DL CREATININE (test code = 2214) 0.52 MG/DL eGFR AMER. (test code 122 ML/MIN/1.73 = 21939) eGFR NON- AMER. (test 105 ML/MIN/1.73 code = 14492) CALC BUN/CREAT (test code = 27 RATIO [...] = <0.2 MG/DL 7) ALKALINE PHOSPHATASE (test 115 U/L code = 2204) AST (test code = 2218) 17 U/L ALT (test code = 2219) 27 U/L THYROID II PROFILE (T3U, T4, T7, TSH)2019 00:00:00 Test Item Value Reference Range Interpretation Comments T-UPTAKE (test code = 2817) 33.1 % THYROX. BIND. CAPAC. (test code 1.0 = 07690) T4 (THYROXINE) (test code = 4.7 UG/DL 2819) CORRECTED T4 (FTI) (test code = 4.7 UG/DL 2820) TSH, THIRD GENERATION (test code 0.201 UIU/ML = 2821) THYROID II PROFILE (T3U, T4, T7, TSH)2019 00:00:00 Test Item Value Reference Range Interpretation Comments T-UPTAKE (test code = 2817) 33.1 % THYROX. BIND. CAPAC. (test code 1.0 = 71057) T4 (THYROXINE) (test code = 4.7 UG/DL 2819) CORRECTED T4 (FTI) (test code = 4.7 UG/DL 2820) TSH, THIRD GENERATION (test code 0.201 UIU/ML = 2821) SARS-CoV-2 (COVID-19) by RT-PCR (HIGH RISK)2019-09-18 00:00:00 Test Item Value Reference Range Interpretation Comments SARS-CoV-2 INTERPRETATION (test NEGATIVE code = 87739) SOURCE (test code = 51964) NOT SPECIFIED SARS-CoV-2 (COVID-19) by RT-PCR (HIGH RISK)2019-09-18 00:00:00 Test Item Value Reference Range Interpretation Comments SARS-CoV-2 INTERPRETATION (test NEGATIVE code = 13901) SOURCE (test code = 37053) NOT SPECIFIED SARS-CoV-2 (COVID-19) by RT-PCR (HIGH RISK)2019-09-18 00:00:00 Test Item Value Reference Range Interpretation Comments SARS-CoV-2 INTERPRETATION (test NEGATIVE code = 33926) SOURCE (test code = 98818) NOT SPECIFIED SARS-CoV-2 (COVID-19) by RT-PCR (HIGH RISK)2019-09-18 00:00:00 Test Item Value Reference Range Interpretation Comments SARS-CoV-2 INTERPRETATION (test NEGATIVE code = 22085) SOURCE (test code = 56127) NOT SPECIFIED SARS-CoV-2 (COVID-19) by RT-PCR (HIGH RISK)2019-09-18 00:00:00 Test Item Value Reference Range Interpretation Comments SARS-CoV-2 INTERPRETATION (test NEGATIVE code = 55089) SOURCE (test code = 58739) NOT SPECIFIED SARS-CoV-2 (COVID-19) by RT-PCR (HIGH RISK)2019-09-18 00:00:00 Test Item Value Reference Range Interpretation Comments SARS-CoV-2 INTERPRETATION (test NEGATIVE code = 77732) SOURCE (test code = 36418) NOT SPECIFIED SARS-CoV-2 (COVID-19) by RT-PCR (HIGH RISK)2019-09-18 00:00:00 Test Item Value Reference Range Interpretation Comments SARS-CoV-2 INTERPRETATION (test NEGATIVE code = 31709) SOURCE (test code = 51928) NOT SPECIFIED [id number] 00:00:00 Test Item Value Reference Range Interpretation Comments TSH, THIRD GENERATION (test code 2.490 UIU/ML = 2821) [id number] 00:00:00 Test Item Value Reference Range Interpretation Comments TSH, THIRD GENERATION (test code 2.490 UIU/ML = 2821) [id number] 00:00:00 Test Item Value Reference Range Interpretation Comments TSH, THIRD GENERATION (test code 2.490 UIU/ML = 2821) HEMOGLOBIN [id number] 00:00:00 Test Item Value Reference Range Interpretation Comments HEMOGLOBIN A1c (test code = 15776) 6.4 % HEMOGLOBIN [id number] 00:00:00 Test Item Value Reference Range Interpretation Comments HEMOGLOBIN A1c (test code = 12060) 6.4 % HEMOGLOBIN [id number] 00:00:00 Test Item Value Reference Range Interpretation Comments HEMOGLOBIN A1c (test code = 65831) 6.4 % COMPREHENSIVE METABOLIC [id number] 00:00:00 Test Item Value Reference Range Interpretation Comments GLUCOSE (test code = 2217) 206 MG/DL BUN (test code = 2208) 23 MG/DL CREATININE (test code = 2214) 0.67 MG/DL eGFR AMER. (test code 112 ML/MIN/1.73 = 70031) eGFR NON- AMER. (test 97 ML/MIN/1.73 code = 26868) CALC BUN/CREAT (test code = 34 RATIO [...] code = 2219) 25 U/L COMPREHENSIVE METABOLIC [id number] 00:00:00 Test Item Value Reference Range Interpretation Comments GLUCOSE (test code = 2217) 206 MG/DL BUN (test code = 2208) 23 MG/DL CREATININE (test code = 2214) 0.67 MG/DL eGFR AMER. (test code 112 ML/MIN/1.73 = 13587) eGFR NON- AMER. (test 97 ML/MIN/1.73 code = 17019) CALC BUN/CREAT (test code = 34 RATIO [...] ALT (test code = 2219) 25 U/L [id number] 00:00:00 Test Item Value Reference Range Interpretation Comments TSH, THIRD GENERATION (test code 2.490 UIU/ML = 2821) [id number] 00:00:00 Test Item Value Reference Range Interpretation Comments TSH, THIRD GENERATION (test code 2.490 UIU/ML = 2821) [id number] 00:00:00 Test Item Value Reference Range Interpretation Comments TSH, THIRD GENERATION (test code 2.490 UIU/ML = 2821) HEMOGLOBIN [id number] 00:00:00 Test Item Value Reference Range Interpretation Comments HEMOGLOBIN A1c (test code = 83834) 6.4 % HEMOGLOBIN [id number] 00:00:00 Test Item Value Reference Range Interpretation Comments HEMOGLOBIN A1c (test code = 45733) 6.4 % HEMOGLOBIN [id number] 00:00:00 Test Item Value Reference Range Interpretation Comments HEMOGLOBIN A1c (test code = 63363) 6.4 % COMPREHENSIVE METABOLIC [id number] 00:00:00 Test Item Value Reference Range Interpretation Comments GLUCOSE (test code = 2217) 206 MG/DL BUN (test code = 2208) 23 MG/DL CREATININE (test code = 2214) 0.67 MG/DL eGFR AMER. (test code 112 ML/MIN/1.73 = 12037) eGFR NON- AMER. (test 97 ML/MIN/1.73 code = 42224) CALC BUN/CREAT (test code = 34 RATIO [...] code = 2219) 25 U/L COMPREHENSIVE METABOLIC [id number] 00:00:00 Test Item Value Reference Range Interpretation Comments GLUCOSE (test code = 2217) 206 MG/DL BUN (test code = 2208) 23 MG/DL CREATININE (test code = 2214) 0.67 MG/DL eGFR AMER. (test code 112 ML/MIN/1.73 = 82311) eGFR NON- AMER. (test 97 ML/MIN/1.73 code = 88799) CALC BUN/CREAT (test code = 34 RATIO [...] ALT (test code = 2219) 25 U/L [id number] 00:00:00 Test Item Value Reference Range Interpretation Comments TSH, THIRD GENERATION (test code 2.490 UIU/ML = 2821) [id number] 00:00:00 Test Item Value Reference Range Interpretation Comments TSH, THIRD GENERATION (test code 2.490 UIU/ML = 2821) HEMOGLOBIN [id number] 00:00:00 Test Item Value Reference Range Interpretation Comments HEMOGLOBIN A1c (test code = 26917) 6.4 % HEMOGLOBIN [id number] 00:00:00 Test Item Value Reference Range Interpretation Comments HEMOGLOBIN A1c (test code = 12644) 6.4 % COMPREHENSIVE METABOLIC [id number] 00:00:00 Test Item Value Reference Range Interpretation Comments GLUCOSE (test code = 2217) 206 MG/DL BUN (test code = 2208) 23 MG/DL CREATININE (test code = 2214) 0.67 MG/DL eGFR AMER. (test code 112 ML/MIN/1.73 = 57930) eGFR NON- AMER. (test 97 ML/MIN/1.73 code = 11268) CALC BUN/CREAT (test code = 34 RATIO [...] ALT (test code = 2219) 25 U/L [id number] 00:00:00 Test Item Value Reference Range Interpretation Comments TSH, THIRD GENERATION (test code 2.490 UIU/ML = 2821) [id number] 00:00:00 Test Item Value Reference Range Interpretation Comments TSH, THIRD GENERATION (test code 2.490 UIU/ML = 2821) [id number] 00:00:00 Test Item Value Reference Range Interpretation Comments TSH, THIRD GENERATION (test code 2.490 UIU/ML = 2821) HEMOGLOBIN [id number] 00:00:00 Test Item Value Reference Range Interpretation Comments HEMOGLOBIN A1c (test code = 78097) 6.4 % HEMOGLOBIN [id number] 00:00:00 Test Item Value Reference Range Interpretation Comments HEMOGLOBIN A1c (test code = 60319) 6.4 % HEMOGLOBIN [id number] 00:00:00 Test Item Value Reference Range Interpretation Comments HEMOGLOBIN A1c (test code = 74438) 6.4 % COMPREHENSIVE METABOLIC [id number] 00:00:00 Test Item Value Reference Range Interpretation Comments GLUCOSE (test code = 2217) 206 MG/DL BUN (test code = 2208) 23 MG/DL CREATININE (test code = 2214) 0.67 MG/DL eGFR AMER. (test code 112 ML/MIN/1.73 = 17056) eGFR NON- AMER. (test 97 ML/MIN/1.73 code = 21814) CALC BUN/CREAT (test code = 34 RATIO [...] code = 2219) 25 U/L COMPREHENSIVE METABOLIC [id number] 00:00:00 Test Item Value Reference Range Interpretation Comments GLUCOSE (test code = 2217) 206 MG/DL BUN (test code = 2208) 23 MG/DL CREATININE (test code = 2214) 0.67 MG/DL eGFR AMER. (test code 112 ML/MIN/1.73 = 28797) eGFR NON- AMER. (test 97 ML/MIN/1.73 code = 63146) CALC BUN/CREAT (test code = 34 RATIO [...] = <0.2 MG/DL 7) ALKALINE PHOSPHATASE (test 105 U/L code = 2204) AST (test code = 2218) 17 U/L ALT (test code = 2219) 25 U/L VAGINAL PATHOGENS DNA [id number] 00:00:00 Test Item Value Reference Range Interpretation Comments MARK SPECIES (test code = 00089) NEGATIVE G. VAGINALIS (test code = 11797) NEGATIVE T. VAGINALIS (test code = 97382) NEGATIVE VAGINAL PATHOGENS DNA [id number] 00:00:00 Test Item Value Reference Range Interpretation Comments MARK SPECIES (test code = 79286) NEGATIVE G. VAGINALIS (test code = 65971) NEGATIVE T. VAGINALIS (test code = 89084) NEGATIVE VAGINAL PATHOGENS DNA [id number] 00:00:00 Test Item Value Reference Range Interpretation Comments MARK SPECIES (test code = 08481) NEGATIVE G. VAGINALIS (test code = 17954) NEGATIVE T. VAGINALIS (test code = 82867) NEGATIVE VAGINAL PATHOGENS DNA [id number] 00:00:00 Test Item Value Reference Range Interpretation Comments MARK SPECIES (test code = 25058) NEGATIVE G. VAGINALIS (test code = 73364) NEGATIVE T. VAGINALIS (test code = 88712) NEGATIVE VAGINAL PATHOGENS DNA [id number] 00:00:00 Test Item Value Reference Range Interpretation Comments MARK SPECIES (test code = 31485) NEGATIVE G. VAGINALIS (test code = 79701) NEGATIVE T. VAGINALIS (test code = 20524) NEGATIVE VAGINAL PATHOGENS DNA [id number] 00:00:00 Test Item Value Reference Range Interpretation Comments MARK SPECIES (test code = 14708) NEGATIVE G. VAGINALIS (test code = 79424) NEGATIVE T. VAGINALIS (test code = 93562) NEGATIVE VAGINAL PATHOGENS DNA [id number] 00:00:00 Test Item Value Reference Range Interpretation Comments MARK SPECIES (test code = 33087) NEGATIVE G. VAGINALIS (test code = 54647) NEGATIVE T. VAGINALIS (test code = 04256) NEGATIVE HEMOGLOBIN A1c [ADDED]2018-12-01 00:00:00 Test Item Value Reference Range Interpretation Comments HEMOGLOBIN A1c (test code = 63799) 6.7 % HEMOGLOBIN A1c [ADDED]2018-12-01 00:00:00 Test Item Value Reference Range Interpretation Comments HEMOGLOBIN A1c (test code = 17083) 6.7 % HEMOGLOBIN A1c [ADDED]2018-12-01 00:00:00 Test Item Value Reference Range Interpretation Comments HEMOGLOBIN A1c (test code = 73751) 6.7 % COMPREHENSIVE METABOLIC PANEL [ADDED]2018-12-01 00:00:00 Test Item Value Reference Range Interpretation Comments GLUCOSE (test code = 2217) 136 MG/DL BUN (test code = 2208) 15 MG/DL CREATININE (test code = 2214) 0.64 MG/DL eGFR AMER. (test code 115 ML/MIN/1.73 = 35541) eGFR NON- AMER. (test 99 ML/MIN/1.73 code = 08247) CALC BUN/CREAT (test code = 23 RATIO [...] eGFR AMER. (test code 115 ML/MIN/1.73 = 90797) eGFR NON- AMER. (test 99 ML/MIN/1.73 code = 67270) CALC BUN/CREAT (test code = 23 RATIO [...] Interpretation Comments HEMOGLOBIN A1c (test code = 49340) 6.7 % HEMOGLOBIN A1c [ADDED]2018-12-01 00:00:00 Test Item Value Reference Range Interpretation Comments HEMOGLOBIN A1c (test code = 92593) 6.7 % HEMOGLOBIN A1c [ADDED]2018-12-01 00:00:00 Test Item Value Reference Range Interpretation Comments HEMOGLOBIN A1c (test code = 07173) 6.7 % COMPREHENSIVE METABOLIC PANEL [ADDED]2018-12-01 00:00:00 Test Item Value Reference Range Interpretation Comments GLUCOSE (test code = 2217) 136 MG/DL BUN (test code = 2208) 15 MG/DL CREATININE (test code = 2214) 0.64 MG/DL eGFR AMER. (test code 115 ML/MIN/1.73 = 02389) eGFR NON- AMER. (test 99 ML/MIN/1.73 code = 47673) CALC BUN/CREAT (test code = 23 RATIO [...] eGFR AMER. (test code 115 ML/MIN/1.73 = 51669) eGFR NON- AMER. (test 99 ML/MIN/1.73 code = 79249) CALC BUN/CREAT (test code = 23 RATIO [...] Interpretation Comments HEMOGLOBIN A1c (test code = 06757) 6.7 % HEMOGLOBIN A1c [ADDED]2018-12-01 00:00:00 Test Item Value Reference Range Interpretation Comments HEMOGLOBIN A1c (test code = 51515) 6.7 % COMPREHENSIVE METABOLIC PANEL [ADDED]2018-12-01 00:00:00 Test Item Value Reference Range Interpretation Comments GLUCOSE (test code = 2217) 136 MG/DL BUN (test code = 2208) 15 MG/DL CREATININE (test code = 2214) 0.64 MG/DL eGFR AMER. (test code 115 ML/MIN/1.73 = 62969) eGFR NON- AMER. (test 99 ML/MIN/1.73 code = 64308) CALC BUN/CREAT (test code = 23 RATIO [...] Interpretation Comments HEMOGLOBIN A1c (test code = 97187) 6.7 % HEMOGLOBIN A1c [ADDED]2018-12-01 00:00:00 Test Item Value Reference Range Interpretation Comments HEMOGLOBIN A1c (test code = 88190) 6.7 % HEMOGLOBIN A1c [ADDED]2018-12-01 00:00:00 Test Item Value Reference Range Interpretation Comments HEMOGLOBIN A1c (test code = 72806) 6.7 % COMPREHENSIVE METABOLIC PANEL [ADDED]2018-12-01 00:00:00 Test Item Value Reference Range Interpretation Comments GLUCOSE (test code = 2217) 136 MG/DL BUN (test code = 2208) 15 MG/DL CREATININE (test code = 2214) 0.64 MG/DL eGFR AMER. (test code 115 ML/MIN/1.73 = 56561) eGFR NON- AMER. (test 99 ML/MIN/1.73 code = 04133) CALC BUN/CREAT (test code = 23 RATIO [...] eGFR AMER. (test code 115 ML/MIN/1.73 = 50068) eGFR NON- AMER. (test 99 ML/MIN/1.73 code = 04035) CALC BUN/CREAT (test code = 23 RATIO [...] code 1.280 UIU/ML = 2821) CBC W/AUTO [id number] 00:00:00 Test Item Value Reference Range Interpretation [...] code = 1015) 346 K/UL CBC W/AUTO [id number] 00:00:00 Test Item Value Reference Range Interpretation [...] code = 1015) 346 K/UL CBC W/AUTO [id number] 00:00:00 Test Item Value Reference Range Interpretation [...] (test code = 1015) 346 K/UL HEMOGLOBIN [id number] 00:00:00 Test Item Value Reference Range Interpretation Comments HEMOGLOBIN A1c (test code = 77051) 5.9 % HEMOGLOBIN [id number] 00:00:00 Test Item Value Reference Range Interpretation Comments HEMOGLOBIN A1c (test code = 34396) 5.9 % HEMOGLOBIN [id number] 00:00:00 Test Item Value Reference Range Interpretation Comments HEMOGLOBIN A1c (test code = 81664) 5.9 % LIPID [id number] 00:00:00 Test Item Value Reference Range Interpretation Comments CHOLESTEROL (test code = 2210) 318 MG/DL TRIGLYCERIDES (test code = 2232) 263 MG/DL HDL CHOLESTEROL (test code = 2220) 51 MG/DL CALC LDL CHOL (test code = 2237) 214 MG/DL RISK RATIO LDL/HDL (test code = 4.20 RATIO 2238) LIPID [id number] 00:00:00 Test Item Value Reference Range Interpretation Comments CHOLESTEROL (test code = 2210) 318 MG/DL TRIGLYCERIDES (test code = 2232) 263 MG/DL HDL CHOLESTEROL (test code = 2220) 51 MG/DL CALC LDL CHOL (test code = 2237) 214 MG/DL RISK RATIO LDL/HDL (test code = 4.20 RATIO 2238) COMPREHENSIVE METABOLIC [id number] 00:00:00 Test Item Value Reference Range Interpretation Comments GLUCOSE (test code = 2217) 113 MG/DL BUN (test code = 2208) 18 MG/DL CREATININE (test code = 2214) 0.70 MG/DL eGFR AMER. (test code 111 ML/MIN/1.73 = 46632) eGFR NON- AMER. (test 96 ML/MIN/1.73 code = 46752) CALC BUN/CREAT (test code = 26 RATIO [...] code = 2219) 31 U/L COMPREHENSIVE METABOLIC [id number] 00:00:00 Test Item Value Reference Range Interpretation Comments GLUCOSE (test code = 2217) 113 MG/DL BUN (test code = 2208) 18 MG/DL CREATININE (test code = 2214) 0.70 MG/DL eGFR AMER. (test code 111 ML/MIN/1.73 = 24253) eGFR NON- AMER. (test 96 ML/MIN/1.73 code = 22899) CALC BUN/CREAT (test code = 26 RATIO [...] ALT (test code = 2219) 31 U/L [id number] 00:00:00 Test Item Value Reference Range Interpretation Comments TSH, THIRD GENERATION (test code 2.520 UIU/ML = 2821) [id number] 00:00:00 Test Item Value Reference Range Interpretation Comments TSH, THIRD GENERATION (test code 2.520 UIU/ML = 2821) [id number] 00:00:00 Test Item Value Reference Range Interpretation Comments TSH, THIRD GENERATION (test code 2.520 UIU/ML = 2821) CBC W/AUTO [id number] 00:00:00 Test Item Value Reference Range Interpretation [...] code = 1015) 346 K/UL CBC W/AUTO [id number] 00:00:00 Test Item Value Reference Range Interpretation [...] code = 1015) 346 K/UL CBC W/AUTO [id number] 00:00:00 Test Item Value Reference Range Interpretation [...] (test code = 1015) 346 K/UL HEMOGLOBIN [id number] 00:00:00 Test Item Value Reference Range Interpretation Comments HEMOGLOBIN A1c (test code = 16585) 5.9 % HEMOGLOBIN [id number] 00:00:00 Test Item Value Reference Range Interpretation Comments HEMOGLOBIN A1c (test code = 90808) 5.9 % HEMOGLOBIN [id number] 00:00:00 Test Item Value Reference Range Interpretation Comments HEMOGLOBIN A1c (test code = 28883) 5.9 % LIPID [id number] 00:00:00 Test Item Value Reference Range Interpretation Comments CHOLESTEROL (test code = 2210) 318 MG/DL TRIGLYCERIDES (test code = 2232) 263 MG/DL HDL CHOLESTEROL (test code = 2220) 51 MG/DL CALC LDL CHOL (test code = 2237) 214 MG/DL RISK RATIO LDL/HDL (test code = 4.20 RATIO 2238) LIPID [id number] 00:00:00 Test Item Value Reference Range Interpretation Comments CHOLESTEROL (test code = 2210) 318 MG/DL TRIGLYCERIDES (test code = 2232) 263 MG/DL HDL CHOLESTEROL (test code = 2220) 51 MG/DL CALC LDL CHOL (test code = 2237) 214 MG/DL RISK RATIO LDL/HDL (test code = 4.20 RATIO 2238) COMPREHENSIVE METABOLIC [id number] 00:00:00 Test Item Value Reference Range Interpretation Comments GLUCOSE (test code = 2217) 113 MG/DL BUN (test code = 2208) 18 MG/DL CREATININE (test code = 2214) 0.70 MG/DL eGFR AMER. (test code 111 ML/MIN/1.73 = 49447) eGFR NON- AMER. (test 96 ML/MIN/1.73 code = 70908) CALC BUN/CREAT (test code = 26 RATIO [...] code = 2219) 31 U/L COMPREHENSIVE METABOLIC [id number] 00:00:00 Test Item Value Reference Range Interpretation Comments GLUCOSE (test code = 2217) 113 MG/DL BUN (test code = 2208) 18 MG/DL CREATININE (test code = 2214) 0.70 MG/DL eGFR AMER. (test code 111 ML/MIN/1.73 = 22201) eGFR NON- AMER. (test 96 ML/MIN/1.73 code = 88707) CALC BUN/CREAT (test code = 26 RATIO [...] ALT (test code = 2219) 31 U/L [id number] 00:00:00 Test Item Value Reference Range Interpretation Comments TSH, THIRD GENERATION (test code 2.520 UIU/ML = 2821) [id number] 00:00:00 Test Item Value Reference Range Interpretation Comments TSH, THIRD GENERATION (test code 2.520 UIU/ML = 2821) [id number] 00:00:00 Test Item Value Reference Range Interpretation Comments TSH, THIRD GENERATION (test code 2.520 UIU/ML = 2821) CBC W/AUTO [id number] 00:00:00 Test Item Value Reference Range Interpretation [...] code = 1015) 346 K/UL CBC W/AUTO [id number] 00:00:00 Test Item Value Reference Range Interpretation [...] (test code = 1015) 346 K/UL HEMOGLOBIN [id number] 00:00:00 Test Item Value Reference Range Interpretation Comments HEMOGLOBIN A1c (test code = 44893) 5.9 % HEMOGLOBIN [id number] 00:00:00 Test Item Value Reference Range Interpretation Comments HEMOGLOBIN A1c (test code = 60601) 5.9 % LIPID [id number] 00:00:00 Test Item Value Reference Range Interpretation Comments CHOLESTEROL (test code = 2210) 318 MG/DL TRIGLYCERIDES (test code = 2232) 263 MG/DL HDL CHOLESTEROL (test code = 2220) 51 MG/DL CALC LDL CHOL (test code = 2237) 214 MG/DL RISK RATIO LDL/HDL (test code = 4.20 RATIO 2238) COMPREHENSIVE METABOLIC [id number] 00:00:00 Test Item Value Reference Range Interpretation Comments GLUCOSE (test code = 2217) 113 MG/DL BUN (test code = 2208) 18 MG/DL CREATININE (test code = 2214) 0.70 MG/DL eGFR AMER. (test code 111 ML/MIN/1.73 = 23039) eGFR NON- AMER. (test 96 ML/MIN/1.73 code = 30584) CALC BUN/CREAT (test code = 26 RATIO [...] ALT (test code = 2219) 31 U/L [id number] 00:00:00 Test Item Value Reference Range Interpretation Comments TSH, THIRD GENERATION (test code 2.520 UIU/ML = 2821) [id number] 00:00:00 Test Item Value Reference Range Interpretation Comments TSH, THIRD GENERATION (test code 2.520 UIU/ML = 2821) CBC W/AUTO [id number] 00:00:00 Test Item Value Reference Range Interpretation [...] code = 1015) 346 K/UL CBC W/AUTO [id number] 00:00:00 Test Item Value Reference Range Interpretation [...] code = 1015) 346 K/UL CBC W/AUTO [id number] 00:00:00 Test Item Value Reference Range Interpretation [...] (test code = 1015) 346 K/UL HEMOGLOBIN [id number] 00:00:00 Test Item Value Reference Range Interpretation Comments HEMOGLOBIN A1c (test code = 86423) 5.9 % HEMOGLOBIN [id number] 00:00:00 Test Item Value Reference Range Interpretation Comments HEMOGLOBIN A1c (test code = 58428) 5.9 % HEMOGLOBIN [id number] 00:00:00 Test Item Value Reference Range Interpretation Comments HEMOGLOBIN A1c (test code = 18262) 5.9 % LIPID [id number] 00:00:00 Test Item Value Reference Range Interpretation Comments CHOLESTEROL (test code = 2210) 318 MG/DL TRIGLYCERIDES (test code = 2232) 263 MG/DL HDL CHOLESTEROL (test code = 2220) 51 MG/DL CALC LDL CHOL (test code = 2237) 214 MG/DL RISK RATIO LDL/HDL (test code = 4.20 RATIO 2238) LIPID [id number] 00:00:00 Test Item Value Reference Range Interpretation Comments CHOLESTEROL (test code = 2210) 318 MG/DL TRIGLYCERIDES (test code = 2232) 263 MG/DL HDL CHOLESTEROL (test code = 2220) 51 MG/DL CALC LDL CHOL (test code = 2237) 214 MG/DL RISK RATIO LDL/HDL (test code = 4.20 RATIO 2238) COMPREHENSIVE METABOLIC [id number] 00:00:00 Test Item Value Reference Range Interpretation Comments GLUCOSE (test code = 2217) 113 MG/DL BUN (test code = 2208) 18 MG/DL CREATININE (test code = 2214) 0.70 MG/DL eGFR AMER. (test code 111 ML/MIN/1.73 = 45749) eGFR NON- AMER. (test 96 ML/MIN/1.73 code = 28810) CALC BUN/CREAT (test code = 26 RATIO [...] code = 2219) 31 U/L COMPREHENSIVE METABOLIC [id number] 00:00:00 Test Item Value Reference Range Interpretation Comments GLUCOSE (test code = 2217) 113 MG/DL BUN (test code = 2208) 18 MG/DL CREATININE (test code = 2214) 0.70 MG/DL eGFR AMER. (test code 111 ML/MIN/1.73 = 49750) eGFR NON- AMER. (test 96 ML/MIN/1.73 code = 16047) CALC BUN/CREAT (test code = 26 RATIO [...] ALT (test code = 2219) 31 U/L [id number] 00:00:00 Test Item Value Reference Range Interpretation Comments TSH, THIRD GENERATION (test code 2.520 UIU/ML = 2821) [id number] 00:00:00 Test Item Value Reference Range Interpretation Comments TSH, THIRD GENERATION (test code 2.520 UIU/ML = 2821) [id number] 00:00:00 Test Item Value Reference Range Interpretation Comments TSH, THIRD GENERATION (test code 2.520 UIU/ML = 2821) CULTURE, [id number] 00:00:00 Test Item Value Reference Range Interpretation Comments CULTURE, URINE (test SPECIMEN NUMBER: code = 85505) [id number] CULTURE, [id number] 00:00:00 Test Item Value Reference Range Interpretation Comments CULTURE, URINE (test SPECIMEN NUMBER: code = 91109) [id number] CULTURE, [id number] 00:00:00 Test Item Value Reference Range Interpretation Comments CULTURE, URINE (test SPECIMEN NUMBER: code = 43282) [id number] CULTURE, [id number] 00:00:00 Test Item Value Reference Range Interpretation Comments CULTURE, URINE (test SPECIMEN NUMBER: code = 26417) [id number] CULTURE, [id number] 00:00:00 Test Item Value Reference Range Interpretation Comments CULTURE, URINE (test SPECIMEN NUMBER: code = 27480) [id number] CULTURE, [id number] 00:00:00 Test Item Value Reference Range Interpretation Comments CULTURE, URINE (test SPECIMEN NUMBER: code = 13692) [id number] CULTURE, [id number] 00:00:00 Test Item Value Reference Range Interpretation Comments CULTURE, URINE (test SPECIMEN NUMBER: code = 16913) [id number] CULTURE, [id number] 00:00:00 Test Item Value Reference Range Interpretation Comments CULTURE, URINE (test SPECIMEN NUMBER: code = 35299) [id number] CULTURE, [id number] 00:00:00 Test Item Value Reference Range Interpretation Comments CULTURE, URINE (test SPECIMEN NUMBER: code = 39117) [id number] CULTURE, [id number] 00:00:00 Test Item Value Reference Range Interpretation Comments CULTURE, URINE (test SPECIMEN NUMBER: code = 87085) [id number] CULTURE, [id number] 00:00:00 Test Item Value Reference Range Interpretation Comments CULTURE, URINE (test SPECIMEN NUMBER: code = 02279) [id number] CULTURE, [id number] 00:00:00 Test Item Value Reference Range Interpretation Comments CULTURE, URINE (test SPECIMEN NUMBER: code = 42417) [id number] CULTURE, [id number] 00:00:00 Test Item Value Reference Range Interpretation Comments CULTURE, URINE (test SPECIMEN NUMBER: code = 07958) [id number] CULTURE, [id number] 00:00:00 Test Item Value Reference Range Interpretation Comments CULTURE, URINE (test SPECIMEN NUMBER: code = 53118) [id number] BASIC METABOLIC [id number] 00:00:00 Test Item Value Reference Range Interpretation Comments GLUCOSE (test code = 2217) 135 MG/DL BUN (test code = 2208) 25 MG/DL CREATININE (test code = 2214) 0.76 MG/DL eGFR AMER. (test code 101 ML/MIN/1.73 = 26100) eGFR NON- AMER. (test 87 ML/MIN/1.73 code = 85364) SODIUM (test code = 2231) 139 MEQ/L POTASSIUM (test code = 2228) 4.7 MEQ/L CHLORIDE (test code = 2215) 99 MEQ/L CARBON DIOXIDE (test code = 26 MEQ/L 2206) CALCIUM (test code = 2209) 9.4 MG/DL BASIC METABOLIC [id number] 00:00:00 Test Item Value Reference Range Interpretation Comments GLUCOSE (test code = 2217) 135 MG/DL BUN (test code = 2208) 25 MG/DL CREATININE (test code = 2214) 0.76 MG/DL eGFR AMER. (test code 101 ML/MIN/1.73 = 17001) eGFR NON- AMER. (test 87 ML/MIN/1.73 code = 42138) SODIUM (test code = 2231) 139 MEQ/L POTASSIUM (test code = 2228) 4.7 MEQ/L CHLORIDE (test code = 2215) 99 MEQ/L CARBON DIOXIDE (test code = 26 MEQ/L 2206) CALCIUM (test code = 2209) 9.4 MG/DL LIPID [id number] 00:00:00 Test Item Value Reference Range Interpretation Comments CHOLESTEROL (test code = 2210) 262 MG/DL TRIGLYCERIDES (test code = 2232) 300 MG/DL HDL CHOLESTEROL (test code = 2220) 36 MG/DL CALC LDL CHOL (test code = 2237) 166 MG/DL RISK RATIO LDL/HDL (test code = 4.61 RATIO 2238) LIPID [id number] 00:00:00 Test Item Value Reference Range Interpretation Comments CHOLESTEROL (test code = 2210) 262 MG/DL TRIGLYCERIDES (test code = 2232) 300 MG/DL HDL CHOLESTEROL (test code = 2220) 36 MG/DL CALC LDL CHOL (test code = 2237) 166 MG/DL RISK RATIO LDL/HDL (test code = 4.61 RATIO 2238) HEMOGLOBIN [id number] 00:00:00 Test Item Value Reference Range Interpretation Comments HEMOGLOBIN A1c (test code = 19928) 6.2 % HEMOGLOBIN [id number] 00:00:00 Test Item Value Reference Range Interpretation Comments HEMOGLOBIN A1c (test code = 84794) 6.2 % HEMOGLOBIN [id number] 00:00:00 Test Item Value Reference Range Interpretation Comments HEMOGLOBIN A1c (test code = 06496) 6.2 % [id number] 00:00:00 Test Item Value Reference Range Interpretation Comments TSH, THIRD GENERATION (test code 0.988 UIU/ML = 2821) [id number] 00:00:00 Test Item Value Reference Range Interpretation Comments TSH, THIRD GENERATION (test code 0.988 UIU/ML = 2821) [id number] 00:00:00 Test Item Value Reference Range Interpretation Comments TSH, THIRD GENERATION (test code 0.988 UIU/ML = 2821) BASIC METABOLIC [id number] 00:00:00 Test Item Value Reference Range Interpretation Comments GLUCOSE (test code = 2217) 135 MG/DL BUN (test code = 2208) 25 MG/DL CREATININE (test code = 2214) 0.76 MG/DL eGFR AMER. (test code 101 ML/MIN/1.73 = 75229) eGFR NON- AMER. (test 87 ML/MIN/1.73 code = 90075) SODIUM (test code = 2231) 139 MEQ/L POTASSIUM (test code = 2228) 4.7 MEQ/L CHLORIDE (test code = 2215) 99 MEQ/L CARBON DIOXIDE (test code = 26 MEQ/L 2205) CALCIUM (test code = 2209) 9.4 MG/DL BASIC METABOLIC [id number] 00:00:00 Test Item Value Reference Range Interpretation Comments GLUCOSE (test code = 2217) 135 MG/DL BUN (test code = 2208) 25 MG/DL CREATININE (test code = 2214) 0.76 MG/DL eGFR AMER. (test code 101 ML/MIN/1.73 = 93864) eGFR NON- AMER. (test 87 ML/MIN/1.73 code = 51413) SODIUM (test code = 2231) 139 MEQ/L POTASSIUM (test code = 2228) 4.7 MEQ/L CHLORIDE (test code = 2215) 99 MEQ/L CARBON DIOXIDE (test code = 26 MEQ/L 2206) CALCIUM (test code = 2209) 9.4 MG/DL LIPID [id number] 00:00:00 Test Item Value Reference Range Interpretation Comments CHOLESTEROL (test code = 2210) 262 MG/DL TRIGLYCERIDES (test code = 2232) 300 MG/DL HDL CHOLESTEROL (test code = 2220) 36 MG/DL CALC LDL CHOL (test code = 2237) 166 MG/DL RISK RATIO LDL/HDL (test code = 4.61 RATIO 2238) LIPID [id number] 00:00:00 Test Item Value Reference Range Interpretation Comments CHOLESTEROL (test code = 2210) 262 MG/DL TRIGLYCERIDES (test code = 2232) 300 MG/DL HDL CHOLESTEROL (test code = 2220) 36 MG/DL CALC LDL CHOL (test code = 2237) 166 MG/DL RISK RATIO LDL/HDL (test code = 4.61 RATIO 2238) HEMOGLOBIN [id number] 00:00:00 Test Item Value Reference Range Interpretation Comments HEMOGLOBIN A1c (test code = 92455) 6.2 % HEMOGLOBIN [id number] 00:00:00 Test Item Value Reference Range Interpretation Comments HEMOGLOBIN A1c (test code = 87779) 6.2 % HEMOGLOBIN [id number] 00:00:00 Test Item Value Reference Range Interpretation Comments HEMOGLOBIN A1c (test code = 53752) 6.2 % [id number] 00:00:00 Test Item Value Reference Range Interpretation Comments TSH, THIRD GENERATION (test code 0.988 UIU/ML = 2821) [id number] 00:00:00 Test Item Value Reference Range Interpretation Comments TSH, THIRD GENERATION (test code 0.988 UIU/ML = 2821) [id number] 00:00:00 Test Item Value Reference Range Interpretation Comments TSH, THIRD GENERATION (test code 0.988 UIU/ML = 2821) BASIC METABOLIC [id number] 00:00:00 Test Item Value Reference Range Interpretation Comments GLUCOSE (test code = 2217) 135 MG/DL BUN (test code = 2208) 25 MG/DL CREATININE (test code = 2214) 0.76 MG/DL eGFR AMER. (test code 101 ML/MIN/1.73 = 74335) eGFR NON- AMER. (test 87 ML/MIN/1.73 code = 23936) SODIUM (test code = 2231) 139 MEQ/L POTASSIUM (test code = 2228) 4.7 MEQ/L CHLORIDE (test code = 2215) 99 MEQ/L CARBON DIOXIDE (test code = 26 MEQ/L 2206) CALCIUM (test code = 2209) 9.4 MG/DL LIPID [id number] 00:00:00 Test Item Value Reference Range Interpretation Comments CHOLESTEROL (test code = 2210) 262 MG/DL TRIGLYCERIDES (test code = 2232) 300 MG/DL HDL CHOLESTEROL (test code = 2220) 36 MG/DL CALC LDL CHOL (test code = 2237) 166 MG/DL RISK RATIO LDL/HDL (test code = 4.61 RATIO 2238) HEMOGLOBIN [id number] 00:00:00 Test Item Value Reference Range Interpretation Comments HEMOGLOBIN A1c (test code = 67426) 6.2 % HEMOGLOBIN [id number] 00:00:00 Test Item Value Reference Range Interpretation Comments HEMOGLOBIN A1c (test code = 06277) 6.2 % [id number] 00:00:00 Test Item Value Reference Range Interpretation Comments TSH, THIRD GENERATION (test code 0.988 UIU/ML = 2821) [id number] 00:00:00 Test Item Value Reference Range Interpretation Comments TSH, THIRD GENERATION (test code 0.988 UIU/ML = 2821) BASIC METABOLIC [id number] 00:00:00 Test Item Value Reference Range Interpretation Comments GLUCOSE (test code = 2217) 135 MG/DL BUN (test code = 2208) 25 MG/DL CREATININE (test code = 2214) 0.76 MG/DL eGFR AMER. (test code 101 ML/MIN/1.73 = 50231) eGFR NON- AMER. (test 87 ML/MIN/1.73 code = 93554) SODIUM (test code = 2231) 139 MEQ/L POTASSIUM (test code = 2228) 4.7 MEQ/L CHLORIDE (test code = 2215) 99 MEQ/L CARBON DIOXIDE (test code = 26 MEQ/L 2206) CALCIUM (test code = 2209) 9.4 MG/DL BASIC METABOLIC [id number] 00:00:00 Test Item Value Reference Range Interpretation Comments GLUCOSE (test code = 2217) 135 MG/DL BUN (test code = 2208) 25 MG/DL CREATININE (test code = 2214) 0.76 MG/DL eGFR AMER. (test code 101 ML/MIN/1.73 = 96707) eGFR NON- AMER. (test 87 ML/MIN/1.73 code = 47469) SODIUM (test code = 2231) 139 MEQ/L POTASSIUM (test code = 2228) 4.7 MEQ/L CHLORIDE (test code = 2215) 99 MEQ/L CARBON DIOXIDE (test code = 26 MEQ/L 2206) CALCIUM (test code = 2209) 9.4 MG/DL LIPID [id number] 00:00:00 Test Item Value Reference Range Interpretation Comments CHOLESTEROL (test code = 2210) 262 MG/DL TRIGLYCERIDES (test code = 2232) 300 MG/DL HDL CHOLESTEROL (test code = 2220) 36 MG/DL CALC LDL CHOL (test code = 2237) 166 MG/DL RISK RATIO LDL/HDL (test code = 4.61 RATIO 2238) LIPID [id number] 00:00:00 Test Item Value Reference Range Interpretation Comments CHOLESTEROL (test code = 2210) 262 MG/DL TRIGLYCERIDES (test code = 2232) 300 MG/DL HDL CHOLESTEROL (test code = 2220) 36 MG/DL CALC LDL CHOL (test code = 2237) 166 MG/DL RISK RATIO LDL/HDL (test code = 4.61 RATIO 2238) HEMOGLOBIN [id number] 00:00:00 Test Item Value Reference Range Interpretation Comments HEMOGLOBIN A1c (test code = 80362) 6.2 % HEMOGLOBIN [id number] 00:00:00 Test Item Value Reference Range Interpretation Comments HEMOGLOBIN A1c (test code = 39100) 6.2 % HEMOGLOBIN [id number] 00:00:00 Test Item Value Reference Range Interpretation Comments HEMOGLOBIN A1c (test code = 86854) 6.2 % [id number] 00:00:00 Test Item Value Reference Range Interpretation Comments TSH, THIRD GENERATION (test code 0.988 UIU/ML = 2821) [id number] 00:00:00 Test Item Value Reference Range Interpretation Comments TSH, THIRD GENERATION (test code 0.988 UIU/ML = 2821) [id number] 00:00:00 Test Item Value Reference Range Interpretation Comments TSH, THIRD GENERATION (test code 0.988 UIU/ML = 2821) COMPREHENSIVE METABOLIC [id number] 00:00:00 Test Item Value Reference Range Interpretation Comments GLUCOSE (test code = 2217) 109 MG/DL BUN (test code = 2208) 25 MG/DL CREATININE (test code = 2214) 0.78 MG/DL eGFR AMER. (test code 98 ML/MIN/1.73 = 88006) eGFR NON- AMER. (test 84 ML/MIN/1.73 code = 14787) CALC BUN/CREAT (test code = 32 RATIO [...] code = 2219) 25 U/L COMPREHENSIVE METABOLIC [id number] 00:00:00 Test Item Value Reference Range Interpretation Comments GLUCOSE (test code = 2217) 109 MG/DL BUN (test code = 2208) 25 MG/DL CREATININE (test code = 2214) 0.78 MG/DL eGFR AMER. (test code 98 ML/MIN/1.73 = 10240) eGFR NON- AMER. (test 84 ML/MIN/1.73 code = 05063) CALC BUN/CREAT (test code = 32 RATIO [...] (test code = 2219) 25 U/L LIPID [id number] 00:00:00 Test Item Value Reference Range Interpretation Comments CHOLESTEROL (test code = 2210) 295 MG/DL TRIGLYCERIDES (test code = 2232) 218 MG/DL HDL CHOLESTEROL (test code = 2220) 46 MG/DL CALC LDL CHOL (test code = 2237) 205 MG/DL RISK RATIO LDL/HDL (test code = 4.47 RATIO 2238) LIPID [id number] 00:00:00 Test Item Value Reference Range Interpretation Comments CHOLESTEROL (test code = 2210) 295 MG/DL TRIGLYCERIDES (test code = 2232) 218 MG/DL HDL CHOLESTEROL (test code = 2220) 46 MG/DL CALC LDL CHOL (test code = 2237) 205 MG/DL RISK RATIO LDL/HDL (test code = 4.47 RATIO 2238) HEMOGLOBIN [id number] 00:00:00 Test Item Value Reference Range Interpretation Comments HEMOGLOBIN A1c (test code = 85756) 7.0 % HEMOGLOBIN [id number] 00:00:00 Test Item Value Reference Range Interpretation Comments HEMOGLOBIN A1c (test code = 50512) 7.0 % HEMOGLOBIN [id number] 00:00:00 Test Item Value Reference Range Interpretation Comments HEMOGLOBIN A1c (test code = 36765) 7.0 % [id number] 00:00:00 Test Item Value Reference Range Interpretation Comments TSH, THIRD GENERATION (test code 0.565 UIU/ML = 2821) [id number] 00:00:00 Test Item Value Reference Range Interpretation Comments TSH, THIRD GENERATION (test code 0.565 UIU/ML = 2821) [id number] 00:00:00 Test Item Value Reference Range Interpretation Comments TSH, THIRD GENERATION (test code 0.565 UIU/ML = 2821) COMPREHENSIVE METABOLIC [id number] 00:00:00 Test Item Value Reference Range Interpretation Comments GLUCOSE (test code = 2217) 109 MG/DL BUN (test code = 2208) 25 MG/DL CREATININE (test code = 2214) 0.78 MG/DL eGFR AMER. (test code 98 ML/MIN/1.73 = 08045) eGFR NON- AMER. (test 84 ML/MIN/1.73 code = 32760) CALC BUN/CREAT (test code = 32 RATIO [...] code = 2219) 25 U/L COMPREHENSIVE METABOLIC [id number] 00:00:00 Test Item Value Reference Range Interpretation Comments GLUCOSE (test code = 2217) 109 MG/DL BUN (test code = 2208) 25 MG/DL CREATININE (test code = 2214) 0.78 MG/DL eGFR AMER. (test code 98 ML/MIN/1.73 = 14074) eGFR NON- AMER. (test 84 ML/MIN/1.73 code = 74250) CALC BUN/CREAT (test code = 32 RATIO [...] (test code = 2219) 25 U/L LIPID [id number] 00:00:00 Test Item Value Reference Range Interpretation Comments CHOLESTEROL (test code = 2210) 295 MG/DL TRIGLYCERIDES (test code = 2232) 218 MG/DL HDL CHOLESTEROL (test code = 2220) 46 MG/DL CALC LDL CHOL (test code = 2237) 205 MG/DL RISK RATIO LDL/HDL (test code = 4.47 RATIO 2238) LIPID [id number] 00:00:00 Test Item Value Reference Range Interpretation Comments CHOLESTEROL (test code = 2210) 295 MG/DL TRIGLYCERIDES (test code = 2232) 218 MG/DL HDL CHOLESTEROL (test code = 2220) 46 MG/DL CALC LDL CHOL (test code = 2237) 205 MG/DL RISK RATIO LDL/HDL (test code = 4.47 RATIO 2238) HEMOGLOBIN [id number] 00:00:00 Test Item Value Reference Range Interpretation Comments HEMOGLOBIN A1c (test code = 21900) 7.0 % HEMOGLOBIN [id number] 00:00:00 Test Item Value Reference Range Interpretation Comments HEMOGLOBIN A1c (test code = 42377) 7.0 % HEMOGLOBIN [id number] 00:00:00 Test Item Value Reference Range Interpretation Comments HEMOGLOBIN A1c (test code = 66214) 7.0 % [id number] 00:00:00 Test Item Value Reference Range Interpretation Comments TSH, THIRD GENERATION (test code 0.565 UIU/ML = 2821) [id number] 00:00:00 Test Item Value Reference Range Interpretation Comments TSH, THIRD GENERATION (test code 0.565 UIU/ML = 2821) [id number] 00:00:00 Test Item Value Reference Range Interpretation Comments TSH, THIRD GENERATION (test code 0.565 UIU/ML = 2821) COMPREHENSIVE METABOLIC [id number] 00:00:00 Test Item Value Reference Range Interpretation Comments GLUCOSE (test code = 2217) 109 MG/DL BUN (test code = 2208) 25 MG/DL CREATININE (test code = 2214) 0.78 MG/DL eGFR AMER. (test code 98 ML/MIN/1.73 = 34064) eGFR NON- AMER. (test 84 ML/MIN/1.73 code = 44419) CALC BUN/CREAT (test code = 32 RATIO [...] (test code = 2219) 25 U/L LIPID [id number] 00:00:00 Test Item Value Reference Range Interpretation Comments CHOLESTEROL (test code = 2210) 295 MG/DL TRIGLYCERIDES (test code = 2232) 218 MG/DL HDL CHOLESTEROL (test code = 2220) 46 MG/DL CALC LDL CHOL (test code = 2237) 205 MG/DL RISK RATIO LDL/HDL (test code = 4.47 RATIO 2238) HEMOGLOBIN [id number] 00:00:00 Test Item Value Reference Range Interpretation Comments HEMOGLOBIN A1c (test code = 07046) 7.0 % HEMOGLOBIN [id number] 00:00:00 Test Item Value Reference Range Interpretation Comments HEMOGLOBIN A1c (test code = 29341) 7.0 % [id number] 00:00:00 Test Item Value Reference Range Interpretation Comments TSH, THIRD GENERATION (test code 0.565 UIU/ML = 2821) [id number] 00:00:00 Test Item Value Reference Range Interpretation Comments TSH, THIRD GENERATION (test code 0.565 UIU/ML = 2821) COMPREHENSIVE METABOLIC [id number] 00:00:00 Test Item Value Reference Range Interpretation Comments GLUCOSE (test code = 2217) 109 MG/DL BUN (test code = 2208) 25 MG/DL CREATININE (test code = 2214) 0.78 MG/DL eGFR AMER. (test code 98 ML/MIN/1.73 = 83932) eGFR NON- AMER. (test 84 ML/MIN/1.73 code = 43655) CALC BUN/CREAT (test code = 32 RATIO [...] code = 2219) 25 U/L COMPREHENSIVE METABOLIC [id number] 00:00:00 Test Item Value Reference Range Interpretation Comments GLUCOSE (test code = 2217) 109 MG/DL BUN (test code = 2208) 25 MG/DL CREATININE (test code = 2214) 0.78 MG/DL eGFR AMER. (test code 98 ML/MIN/1.73 = 93921) eGFR NON- AMER. (test 84 ML/MIN/1.73 code = 24693) CALC BUN/CREAT (test code = 32 RATIO [...] (test code = 2219) 25 U/L LIPID [id number] 00:00:00 Test Item Value Reference Range Interpretation Comments CHOLESTEROL (test code = 2210) 295 MG/DL TRIGLYCERIDES (test code = 2232) 218 MG/DL HDL CHOLESTEROL (test code = 2220) 46 MG/DL CALC LDL CHOL (test code = 2237) 205 MG/DL RISK RATIO LDL/HDL (test code = 4.47 RATIO 2238) LIPID [id number] 00:00:00 Test Item Value Reference Range Interpretation Comments CHOLESTEROL (test code = 2210) 295 MG/DL TRIGLYCERIDES (test code = 2232) 218 MG/DL HDL CHOLESTEROL (test code = 2220) 46 MG/DL CALC LDL CHOL (test code = 2237) 205 MG/DL RISK RATIO LDL/HDL (test code = 4.47 RATIO 2238) HEMOGLOBIN [id number] 00:00:00 Test Item Value Reference Range Interpretation Comments HEMOGLOBIN A1c (test code = 41078) 7.0 % HEMOGLOBIN [id number] 00:00:00 Test Item Value Reference Range Interpretation Comments HEMOGLOBIN A1c (test code = 25506) 7.0 % HEMOGLOBIN [id number] 00:00:00 Test Item Value Reference Range Interpretation Comments HEMOGLOBIN A1c (test code = 58046) 7.0 % [id number] 00:00:00 Test Item Value Reference Range Interpretation Comments TSH, THIRD GENERATION (test code 0.565 UIU/ML = 2821) [id number] 00:00:00 Test Item Value Reference Range Interpretation Comments TSH, THIRD GENERATION (test code 0.565 UIU/ML = 2821) [id number] 00:00:00 Test Item Value Reference Range Interpretation Comments TSH, THIRD GENERATION (test code 0.565 UIU/ML = 2821) [id number] 00:00:00 Test Item Value Reference Range Interpretation Comments TSH, THIRD GENERATION (test code 0.379 UIU/ML = 2821) [id number] 00:00:00 Test Item Value Reference Range Interpretation Comments TSH, THIRD GENERATION (test code 0.379 UIU/ML = 2821) [id number] 00:00:00 Test Item Value Reference Range Interpretation Comments TSH, THIRD GENERATION (test code 0.379 UIU/ML = 2821) [id number] 00:00:00 Test Item Value Reference Range Interpretation Comments TSH, THIRD GENERATION (test code 0.379 UIU/ML = 2821) [id number] 00:00:00 Test Item Value Reference Range Interpretation Comments TSH, THIRD GENERATION (test code 0.379 UIU/ML = 2821) [id number] 00:00:00 Test Item Value Reference Range Interpretation Comments TSH, THIRD GENERATION (test code 0.379 UIU/ML = 2821) [id number] 00:00:00 Test Item Value Reference Range Interpretation Comments TSH, THIRD GENERATION (test code 0.379 UIU/ML = 2821) [id number] 00:00:00 Test Item Value Reference Range Interpretation Comments TSH, THIRD GENERATION (test code 0.379 UIU/ML = 2821) [id number] 00:00:00 Test Item Value Reference Range Interpretation Comments TSH, THIRD GENERATION (test code 0.379 UIU/ML = 2821) [id number] 00:00:00 Test Item Value Reference Range Interpretation Comments TSH, THIRD GENERATION (test code 0.379 UIU/ML = 2821) [id number] 00:00:00 Test Item Value Reference Range Interpretation Comments TSH, THIRD GENERATION (test code 0.379 UIU/ML = 2821) CULTURE, [id number] 00:00:00 Test Item Value Reference Range Interpretation Comments CULTURE, URINE (test SPECIMEN NUMBER: code = 64543) [id number] CULTURE, [id number] 00:00:00 Test Item Value Reference Range Interpretation Comments CULTURE, URINE (test SPECIMEN NUMBER: code = 03224) [id number] CULTURE, [id number] 00:00:00 Test Item Value Reference Range Interpretation Comments CULTURE, URINE (test SPECIMEN NUMBER: code = 38901) [id number] CULTURE, [id number] 00:00:00 Test Item Value Reference Range Interpretation Comments CULTURE, URINE (test SPECIMEN NUMBER: code = 95901) [id number] CULTURE, [id number] 00:00:00 Test Item Value Reference Range Interpretation Comments CULTURE, URINE (test SPECIMEN NUMBER: code = 48157) [id number] CULTURE, [id number] 00:00:00 Test Item Value Reference Range Interpretation Comments CULTURE, URINE (test SPECIMEN NUMBER: code = 68556) [id number] CULTURE, [id number] 00:00:00 Test Item Value Reference Range Interpretation Comments CULTURE, URINE (test SPECIMEN NUMBER: code = 62396) [id number] COMPREHENSIVE METABOLIC [id number] 00:00:00 Test Item Value Reference Range Interpretation Comments GLUCOSE (test code = 2217) 128 MG/DL BUN (test code = 2208) 26 MG/DL CREATININE (test code = 2214) 0.92 MG/DL eGFR AMER. (test code 81 ML/MIN/1.73 = 73655) eGFR NON- AMER. (test 70 ML/MIN/1.73 code = 80550) CALC BUN/CREAT (test code = 28 RATIO [...] code = 2219) 29 U/L COMPREHENSIVE METABOLIC [id number] 00:00:00 Test Item Value Reference Range Interpretation Comments GLUCOSE (test code = 2217) 128 MG/DL BUN (test code = 2208) 26 MG/DL CREATININE (test code = 2214) 0.92 MG/DL eGFR AMER. (test code 81 ML/MIN/1.73 = 23746) eGFR NON- AMER. (test 70 ML/MIN/1.73 code = 01953) CALC BUN/CREAT (test code = 28 RATIO [...] code = 2219) 29 U/L ACUTE HEPATITIS [id number] 00:00:00 Test Item Value Reference Range Interpretation Comments HEPATITIS A IgM (test code = NON-REACTIVE 12557) HEPATITIS B CORE IgM (test code NON-REACTIVE = 4644) HEPATITIS B SURF AG (test code = NON-REACTIVE 2739) HEPATITIS C ANTIBODY (test code NON-REACTIVE = 4675) INTERPRETATION HEPATITIS A: (NOTE) (test code = 2552) INTERPRETATION HEPATITIS B: (NOTE) (test code = 01607) INTERPRETATION HEPATITIS C: (NOTE) (test code = 94851) ACUTE HEPATITIS [id number] 00:00:00 Test Item Value Reference Range Interpretation Comments HEPATITIS A IgM (test code = NON-REACTIVE 26142) HEPATITIS B CORE IgM (test code NON-REACTIVE = 4644) HEPATITIS B SURF AG (test code = NON-REACTIVE 1813) HEPATITIS C ANTIBODY (test code NON-REACTIVE = 4658) INTERPRETATION HEPATITIS A: (NOTE) (test code = 2552) INTERPRETATION HEPATITIS B: (NOTE) (test code = 00746) INTERPRETATION HEPATITIS C: (NOTE) (test code = 65981) [id number] 00:00:00 Test Item Value Reference Range Interpretation Comments AMYLASE (test code = 2205) 32 U/L [id number] 00:00:00 Test Item Value Reference Range Interpretation Comments AMYLASE (test code = 2205) 32 U/L [id number] 00:00:00 Test Item Value Reference Range Interpretation Comments LIPASE (test code = 2058) 22 U/L [id number] 00:00:00 Test Item Value Reference Range Interpretation Comments LIPASE (test code = 2058) 22 U/L [id number] 00:00:00 Test Item Value Reference Range Interpretation Comments LIPASE (test code = 2058) 22 U/L COMPREHENSIVE METABOLIC [id number] 00:00:00 Test Item Value Reference Range Interpretation Comments GLUCOSE (test code = 2217) 128 MG/DL BUN (test code = 2208) 26 MG/DL CREATININE (test code = 2214) 0.92 MG/DL eGFR AMER. (test code 81 ML/MIN/1.73 = 34811) eGFR NON- AMER. (test 70 ML/MIN/1.73 code = 19755) CALC BUN/CREAT (test code = 28 RATIO [...] code = 2219) 29 U/L COMPREHENSIVE METABOLIC [id number] 00:00:00 Test Item Value Reference Range Interpretation Comments GLUCOSE (test code = 2217) 128 MG/DL BUN (test code = 2208) 26 MG/DL CREATININE (test code = 2214) 0.92 MG/DL eGFR AMER. (test code 81 ML/MIN/1.73 = 80368) eGFR NON- AMER. (test 70 ML/MIN/1.73 code = 49558) CALC BUN/CREAT (test code = 28 RATIO [...] code = 2219) 29 U/L ACUTE HEPATITIS [id number] 00:00:00 Test Item Value Reference Range Interpretation Comments HEPATITIS A IgM (test code = NON-REACTIVE 89570) HEPATITIS B CORE IgM (test code NON-REACTIVE = 4644) HEPATITIS B SURF AG (test code = NON-REACTIVE 2738) HEPATITIS C ANTIBODY (test code NON-REACTIVE = 4675) INTERPRETATION HEPATITIS A: (NOTE) (test code = 2552) INTERPRETATION HEPATITIS B: (NOTE) (test code = 09126) INTERPRETATION HEPATITIS C: (NOTE) (test code = 07266) ACUTE HEPATITIS [id number] 00:00:00 Test Item Value Reference Range Interpretation Comments HEPATITIS A IgM (test code = NON-REACTIVE 99439) HEPATITIS B CORE IgM (test code NON-REACTIVE = 4644) HEPATITIS B SURF AG (test code = NON-REACTIVE 2738) HEPATITIS C ANTIBODY (test code NON-REACTIVE = 4675) INTERPRETATION HEPATITIS A: (NOTE) (test code = 2552) INTERPRETATION HEPATITIS B: (NOTE) (test code = 01057) INTERPRETATION HEPATITIS C: (NOTE) (test code = 14395) [id number] 00:00:00 Test Item Value Reference Range Interpretation Comments AMYLASE (test code = 2205) 32 U/L [id number] 00:00:00 Test Item Value Reference Range Interpretation Comments AMYLASE (test code = 2205) 32 U/L [id number] 00:00:00 Test Item Value Reference Range Interpretation Comments LIPASE (test code = 2058) 22 U/L [id number] 00:00:00 Test Item Value Reference Range Interpretation Comments LIPASE (test code = 2058) 22 U/L [id number] 00:00:00 Test Item Value Reference Range Interpretation Comments LIPASE (test code = 2058) 22 U/L COMPREHENSIVE METABOLIC [id number] 00:00:00 Test Item Value Reference Range Interpretation Comments GLUCOSE (test code = 2217) 128 MG/DL BUN (test code = 2208) 26 MG/DL CREATININE (test code = 2214) 0.92 MG/DL eGFR AMER. (test code 81 ML/MIN/1.73 = 41239) eGFR NON- AMER. (test 70 ML/MIN/1.73 code = 77339) CALC BUN/CREAT (test code = 28 RATIO [...] code = 2219) 29 U/L ACUTE HEPATITIS [id number] 00:00:00 Test Item Value Reference Range Interpretation Comments HEPATITIS A IgM (test code = NON-REACTIVE 31062) HEPATITIS B CORE IgM (test code NON-REACTIVE = 4644) HEPATITIS B SURF AG (test code = NON-REACTIVE 7409) HEPATITIS C ANTIBODY (test code NON-REACTIVE = 7009) INTERPRETATION HEPATITIS A: (NOTE) (test code = 2552) INTERPRETATION HEPATITIS B: (NOTE) (test code = 17403) INTERPRETATION HEPATITIS C: (NOTE) (test code = 84453) [id number] 00:00:00 Test Item Value Reference Range Interpretation Comments AMYLASE (test code = 2205) 32 U/L [id number] 00:00:00 Test Item Value Reference Range Interpretation Comments LIPASE (test code = 2058) 22 U/L [id number] 00:00:00 Test Item Value Reference Range Interpretation Comments LIPASE (test code = 2058) 22 U/L COMPREHENSIVE METABOLIC [id number] 00:00:00 Test Item Value Reference Range Interpretation Comments GLUCOSE (test code = 2217) 128 MG/DL BUN (test code = 2208) 26 MG/DL CREATININE (test code = 2214) 0.92 MG/DL eGFR AMER. (test code 81 ML/MIN/1.73 = 95122) eGFR NON- AMER. (test 70 ML/MIN/1.73 code = 91142) CALC BUN/CREAT (test code = 28 RATIO [...] code = 2219) 29 U/L COMPREHENSIVE METABOLIC [id number] 00:00:00 Test Item Value Reference Range Interpretation Comments GLUCOSE (test code = 2217) 128 MG/DL BUN (test code = 2208) 26 MG/DL CREATININE (test code = 2214) 0.92 MG/DL eGFR AMER. (test code 81 ML/MIN/1.73 = 78105) eGFR NON- AMER. (test 70 ML/MIN/1.73 code = 43392) CALC BUN/CREAT (test code = 28 RATIO [...] code = 2219) 29 U/L ACUTE HEPATITIS [id number] 00:00:00 Test Item Value Reference Range Interpretation Comments HEPATITIS A IgM (test code = NON-REACTIVE 16909) HEPATITIS B CORE IgM (test code NON-REACTIVE = 4644) HEPATITIS B SURF AG (test code = NON-REACTIVE 2739) HEPATITIS C ANTIBODY (test code NON-REACTIVE = 4675) INTERPRETATION HEPATITIS A: (NOTE) (test code = 2552) INTERPRETATION HEPATITIS B: (NOTE) (test code = 04394) INTERPRETATION HEPATITIS C: (NOTE) (test code = 77041) ACUTE HEPATITIS [id number] 00:00:00 Test Item Value Reference Range Interpretation Comments HEPATITIS A IgM (test code = NON-REACTIVE 90792) HEPATITIS B CORE IgM (test code NON-REACTIVE = 4644) HEPATITIS B SURF AG (test code = NON-REACTIVE 2739) HEPATITIS C ANTIBODY (test code NON-REACTIVE = 4675) INTERPRETATION HEPATITIS A: (NOTE) (test code = 2552) INTERPRETATION HEPATITIS B: (NOTE) (test code = 00692) INTERPRETATION HEPATITIS C: (NOTE) (test code = 47648) [id number] 00:00:00 Test Item Value Reference Range Interpretation Comments AMYLASE (test code = 2205) 32 U/L [id number] 00:00:00 Test Item Value Reference Range Interpretation Comments AMYLASE (test code = 2205) 32 U/L [id number] 00:00:00 Test Item Value Reference Range Interpretation Comments LIPASE (test code = 2058) 22 U/L [id number] 00:00:00 Test Item Value Reference Range Interpretation Comments LIPASE (test code = 2058) 22 U/L [id number] 00:00:00 Test Item Value Reference Range Interpretation Comments LIPASE (test code = 2058) 22 U/L [id number] 00:00:00 Test Item Value Reference Range Interpretation Comments TSH, THIRD GENERATION (test code 4.890 UIU/ML = 2821) [id number] 00:00:00 Test Item Value Reference Range Interpretation Comments TSH, THIRD GENERATION (test code 4.890 UIU/ML = 2821) [id number] 00:00:00 Test Item Value Reference Range Interpretation Comments TSH, THIRD GENERATION (test code 4.890 UIU/ML = 2821) COMPREHENSIVE METABOLIC [id number] 00:00:00 Test Item Value Reference Range Interpretation Comments GLUCOSE (test code = 2217) 121 MG/DL BUN (test code = 2208) 40 MG/DL CREATININE (test code = 2214) 1.48 MG/DL eGFR AMER. (test code 45 ML/MIN/1.73 = 35920) eGFR NON- AMER. (test 39 ML/MIN/1.73 code = 78599) CALC BUN/CREAT (test code = 27 RATIO [...] code = 2219) 20 U/L COMPREHENSIVE METABOLIC [id number] 00:00:00 Test Item Value Reference Range Interpretation Comments GLUCOSE (test code = 2217) 121 MG/DL BUN (test code = 2208) 40 MG/DL CREATININE (test code = 2214) 1.48 MG/DL eGFR AMER. (test code 45 ML/MIN/1.73 = 25061) eGFR NON- AMER. (test 39 ML/MIN/1.73 code = 08179) CALC BUN/CREAT (test code = 27 RATIO [...] ALT (test code = 2219) 20 U/L [id number] 00:00:00 Test Item Value Reference Range Interpretation Comments TSH, THIRD GENERATION (test code 4.890 UIU/ML = 2821) [id number] 00:00:00 Test Item Value Reference Range Interpretation Comments TSH, THIRD GENERATION (test code 4.890 UIU/ML = 2821) [id number] 00:00:00 Test Item Value Reference Range Interpretation Comments TSH, THIRD GENERATION (test code 4.890 UIU/ML = 2821) COMPREHENSIVE METABOLIC [id number] 00:00:00 Test Item Value Reference Range Interpretation Comments GLUCOSE (test code = 2217) 121 MG/DL BUN (test code = 2208) 40 MG/DL CREATININE (test code = 2214) 1.48 MG/DL eGFR AMER. (test code 45 ML/MIN/1.73 = 79771) eGFR NON- AMER. (test 39 ML/MIN/1.73 code = 52701) CALC BUN/CREAT (test code = 27 RATIO [...] code = 2219) 20 U/L COMPREHENSIVE METABOLIC [id number] 00:00:00 Test Item Value Reference Range Interpretation Comments GLUCOSE (test code = 2217) 121 MG/DL BUN (test code = 2208) 40 MG/DL CREATININE (test code = 2214) 1.48 MG/DL eGFR AMER. (test code 45 ML/MIN/1.73 = 17826) eGFR NON- AMER. (test 39 ML/MIN/1.73 code = 89117) CALC BUN/CREAT (test code = 27 RATIO [...] ALT (test code = 2219) 20 U/L [id number] 00:00:00 Test Item Value Reference Range Interpretation Comments TSH, THIRD GENERATION (test code 4.890 UIU/ML = 2821) [id number] 00:00:00 Test Item Value Reference Range Interpretation Comments TSH, THIRD GENERATION (test code 4.890 UIU/ML = 2821) COMPREHENSIVE METABOLIC [id number] 00:00:00 Test Item Value Reference Range Interpretation Comments GLUCOSE (test code = 2217) 121 MG/DL BUN (test code = 2208) 40 MG/DL CREATININE (test code = 2214) 1.48 MG/DL eGFR AMER. (test code 45 ML/MIN/1.73 = 47312) eGFR NON- AMER. (test 39 ML/MIN/1.73 code = 62615) CALC BUN/CREAT (test code = 27 RATIO [...] ALT (test code = 2219) 20 U/L [id number] 00:00:00 Test Item Value Reference Range Interpretation Comments TSH, THIRD GENERATION (test code 4.890 UIU/ML = 2821) [id number] 00:00:00 Test Item Value Reference Range Interpretation Comments TSH, THIRD GENERATION (test code 4.890 UIU/ML = 2821) [id number] 00:00:00 Test Item Value Reference Range Interpretation Comments TSH, THIRD GENERATION (test code 4.890 UIU/ML = 2821) COMPREHENSIVE METABOLIC [id number] 00:00:00 Test Item Value Reference Range Interpretation Comments GLUCOSE (test code = 2217) 121 MG/DL BUN (test code = 2208) 40 MG/DL CREATININE (test code = 2214) 1.48 MG/DL eGFR AMER. (test code 45 ML/MIN/1.73 = 59223) eGFR NON- AMER. (test 39 ML/MIN/1.73 code = 22716) CALC BUN/CREAT (test code = 27 RATIO [...] code = 2219) 20 U/L COMPREHENSIVE METABOLIC [id number] 00:00:00 Test Item Value Reference Range Interpretation Comments GLUCOSE (test code = 2217) 121 MG/DL BUN (test code = 2208) 40 MG/DL CREATININE (test code = 2214) 1.48 MG/DL eGFR AMER. (test code 45 ML/MIN/1.73 = 18586) eGFR NON- AMER. (test 39 ML/MIN/1.73 code = 06200) CALC BUN/CREAT (test code = 27 RATIO [...] (test code = 2219) 20 U/L LIPID [id number] 00:00:00 Test Item Value Reference Range Interpretation Comments CHOLESTEROL (test code = 2210) 261 MG/DL TRIGLYCERIDES (test code = 2232) 165 MG/DL HDL CHOLESTEROL (test code = 2220) 58 MG/DL CALC LDL CHOL (test code = 2237) 170 MG/DL RISK RATIO LDL/HDL (test code = 2.93 RATIO 2238) LIPID [id number] 00:00:00 Test Item Value Reference Range Interpretation Comments CHOLESTEROL (test code = 2210) 261 MG/DL TRIGLYCERIDES (test code = 2232) 165 MG/DL HDL CHOLESTEROL (test code = 2220) 58 MG/DL CALC LDL CHOL (test code = 2237) 170 MG/DL RISK RATIO LDL/HDL (test code = 2.93 RATIO 2238) CBC W/AUTO [id number] 00:00:00 Test Item Value Reference Range Interpretation [...] code = 1015) 378 K/UL CBC W/AUTO [id number] 00:00:00 Test Item Value Reference Range Interpretation [...] code = 1015) 378 K/UL CBC W/AUTO [id number] 00:00:00 Test Item Value Reference Range Interpretation [...] (test code = 1015) 378 K/UL HEMOGLOBIN [id number] 00:00:00 Test Item Value Reference Range Interpretation Comments HEMOGLOBIN A1c (test code = 92622) 6.4 % HEMOGLOBIN [id number] 00:00:00 Test Item Value Reference Range Interpretation Comments HEMOGLOBIN A1c (test code = 65713) 6.4 % HEMOGLOBIN [id number] 00:00:00 Test Item Value Reference Range Interpretation Comments HEMOGLOBIN A1c (test code = 39278) 6.4 % [id number] 00:00:00 Test Item Value Reference Range Interpretation Comments TSH (test code = 2821) 5.290 UIU/ML [id number] 00:00:00 Test Item Value Reference Range Interpretation Comments TSH (test code = 2821) 5.290 UIU/ML [id number] 00:00:00 Test Item Value Reference Range Interpretation Comments TSH (test code = 2821) 5.290 UIU/ML LIPID [id number] 00:00:00 Test Item Value Reference Range Interpretation Comments CHOLESTEROL (test code = 2210) 261 MG/DL TRIGLYCERIDES (test code = 2232) 165 MG/DL HDL CHOLESTEROL (test code = 2220) 58 MG/DL CALC LDL CHOL (test code = 2237) 170 MG/DL RISK RATIO LDL/HDL (test code = 2.93 RATIO 2238) LIPID [id number] 00:00:00 Test Item Value Reference Range Interpretation Comments CHOLESTEROL (test code = 2210) 261 MG/DL TRIGLYCERIDES (test code = 2232) 165 MG/DL HDL CHOLESTEROL (test code = 2220) 58 MG/DL CALC LDL CHOL (test code = 2237) 170 MG/DL RISK RATIO LDL/HDL (test code = 2.93 RATIO 2238) CBC W/AUTO [id number] 00:00:00 Test Item Value Reference Range Interpretation [...] code = 1015) 378 K/UL CBC W/AUTO [id number] 00:00:00 Test Item Value Reference Range Interpretation [...] code = 1015) 378 K/UL CBC W/AUTO [id number] 00:00:00 Test Item Value Reference Range Interpretation [...] (test code = 1015) 378 K/UL HEMOGLOBIN [id number] 00:00:00 Test Item Value Reference Range Interpretation Comments HEMOGLOBIN A1c (test code = 59070) 6.4 % HEMOGLOBIN [id number] 00:00:00 Test Item Value Reference Range Interpretation Comments HEMOGLOBIN A1c (test code = 69783) 6.4 % HEMOGLOBIN [id number] 00:00:00 Test Item Value Reference Range Interpretation Comments HEMOGLOBIN A1c (test code = 06998) 6.4 % [id number] 00:00:00 Test Item Value Reference Range Interpretation Comments TSH (test code = 2821) 5.290 UIU/ML [id number] 00:00:00 Test Item Value Reference Range Interpretation Comments TSH (test code = 2821) 5.290 UIU/ML [id number] 00:00:00 Test Item Value Reference Range Interpretation Comments TSH (test code = 2821) 5.290 UIU/ML LIPID [id number] 00:00:00 Test Item Value Reference Range Interpretation Comments CHOLESTEROL (test code = 2210) 261 MG/DL TRIGLYCERIDES (test code = 2232) 165 MG/DL HDL CHOLESTEROL (test code = 2220) 58 MG/DL CALC LDL CHOL (test code = 2237) 170 MG/DL RISK RATIO LDL/HDL (test code = 2.93 RATIO 2238) CBC W/AUTO [id number] 00:00:00 Test Item Value Reference Range Interpretation [...] code = 1015) 378 K/UL CBC W/AUTO [id number] 00:00:00 Test Item Value Reference Range Interpretation [...] (test code = 1015) 378 K/UL HEMOGLOBIN [id number] 00:00:00 Test Item Value Reference Range Interpretation Comments HEMOGLOBIN A1c (test code = 14981) 6.4 % HEMOGLOBIN [id number] 00:00:00 Test Item Value Reference Range Interpretation Comments HEMOGLOBIN A1c (test code = 28998) 6.4 % [id number] 00:00:00 Test Item Value Reference Range Interpretation Comments TSH (test code = 2821) 5.290 UIU/ML [id number] 00:00:00 Test Item Value Reference Range Interpretation Comments TSH (test code = 2821) 5.290 UIU/ML LIPID [id number] 00:00:00 Test Item Value Reference Range Interpretation Comments CHOLESTEROL (test code = 2210) 261 MG/DL TRIGLYCERIDES (test code = 2232) 165 MG/DL HDL CHOLESTEROL (test code = 2220) 58 MG/DL CALC LDL CHOL (test code = 2237) 170 MG/DL RISK RATIO LDL/HDL (test code = 2.93 RATIO 2238) LIPID [id number] 00:00:00 Test Item Value Reference Range Interpretation Comments CHOLESTEROL (test code = 2210) 261 MG/DL TRIGLYCERIDES (test code = 2232) 165 MG/DL HDL CHOLESTEROL (test code = 2220) 58 MG/DL CALC LDL CHOL (test code = 2237) 170 MG/DL RISK RATIO LDL/HDL (test code = 2.93 RATIO 2238) CBC W/AUTO [id number] 00:00:00 Test Item Value Reference Range Interpretation [...] code = 1015) 378 K/UL CBC W/AUTO [id number] 00:00:00 Test Item Value Reference Range Interpretation [...] code = 1015) 378 K/UL CBC W/AUTO [id number] 00:00:00 Test Item Value Reference Range Interpretation [...] (test code = 1015) 378 K/UL HEMOGLOBIN [id number] 00:00:00 Test Item Value Reference Range Interpretation Comments HEMOGLOBIN A1c (test code = 17067) 6.4 % HEMOGLOBIN [id number] 00:00:00 Test Item Value Reference Range Interpretation Comments HEMOGLOBIN A1c (test code = 61320) 6.4 % HEMOGLOBIN [id number] 00:00:00 Test Item Value Reference Range Interpretation Comments HEMOGLOBIN A1c (test code = 44128) 6.4 % [id number] 00:00:00 Test Item Value Reference Range Interpretation Comments TSH (test code = 2821) 5.290 UIU/ML [id number] 00:00:00 Test Item Value Reference Range Interpretation Comments TSH (test code = 2821) 5.290 UIU/ML [id number] 00:00:00 Test Item Value Reference Range Interpretation [...] code = 2821) 1.030 UIU/ML COMPREHENSIVE METABOLIC [id number] 00:00:00 Test Item Value Reference Range Interpretation Comments GLUCOSE (test code = 2217) 106 MG/DL BUN (test code = 2208) 23 MG/DL CREATININE (test code = 2214) 0.66 MG/DL eGFR AMER. (test code 114 ML/MIN/1.73 = 32099) eGFR NON- AMER. (test 99 ML/MIN/1.73 code = 18968) CALC BUN/CREAT (test code = 35 RATIO [...] code = 2219) 31 U/L COMPREHENSIVE METABOLIC [id number] 00:00:00 Test Item Value Reference Range Interpretation Comments GLUCOSE (test code = 2217) 106 MG/DL BUN (test code = 2208) 23 MG/DL CREATININE (test code = 2214) 0.66 MG/DL eGFR AMER. (test code 114 ML/MIN/1.73 = 82950) eGFR NON- AMER. (test 99 ML/MIN/1.73 code = 71181) CALC BUN/CREAT (test code = 35 RATIO [...] code = 2821) 0.335 UIU/ML COMPREHENSIVE METABOLIC [id number] 00:00:00 Test Item Value Reference Range Interpretation Comments GLUCOSE (test code = 2217) 106 MG/DL BUN (test code = 2208) 23 MG/DL CREATININE (test code = 2214) 0.66 MG/DL eGFR AMER. (test code 114 ML/MIN/1.73 = 19313) eGFR NON- AMER. (test 99 ML/MIN/1.73 code = 28673) CALC BUN/CREAT (test code = 35 RATIO [...] code = 2219) 31 U/L COMPREHENSIVE METABOLIC [id number] 00:00:00 Test Item Value Reference Range Interpretation Comments GLUCOSE (test code = 2217) 106 MG/DL BUN (test code = 2208) 23 MG/DL CREATININE (test code = 2214) 0.66 MG/DL eGFR AMER. (test code 114 ML/MIN/1.73 = 96710) eGFR NON- AMER. (test 99 ML/MIN/1.73 code = 33174) CALC BUN/CREAT (test code = 35 RATIO [...] code = 2821) 0.335 UIU/ML COMPREHENSIVE METABOLIC [id number] 00:00:00 Test Item Value Reference Range Interpretation Comments GLUCOSE (test code = 2217) 106 MG/DL BUN (test code = 2208) 23 MG/DL CREATININE (test code = 2214) 0.66 MG/DL eGFR AMER. (test code 114 ML/MIN/1.73 = 47251) eGFR NON- AMER. (test 99 ML/MIN/1.73 code = 85490) CALC BUN/CREAT (test code = 35 RATIO [...] code = 2821) 0.335 UIU/ML COMPREHENSIVE METABOLIC [id number] 00:00:00 Test Item Value Reference Range Interpretation Comments GLUCOSE (test code = 2217) 106 MG/DL BUN (test code = 2208) 23 MG/DL CREATININE (test code = 2214) 0.66 MG/DL eGFR AMER. (test code 114 ML/MIN/1.73 = 72192) eGFR NON- AMER. (test 99 ML/MIN/1.73 code = 00422) CALC BUN/CREAT (test code = 35 RATIO [...] code = 2219) 31 U/L COMPREHENSIVE METABOLIC [id number] 00:00:00 Test Item Value Reference Range Interpretation Comments GLUCOSE (test code = 2217) 106 MG/DL BUN (test code = 2208) 23 MG/DL CREATININE (test code = 2214) 0.66 MG/DL eGFR AMER. (test code 114 ML/MIN/1.73 = 57502) eGFR NON- AMER. (test 99 ML/MIN/1.73 code = 38103) CALC BUN/CREAT (test code = 35 RATIO [...] code = 2821) 0.335 UIU/ML COMPREHENSIVE METABOLIC [id number] 00:00:00 Test Item Value Reference Range Interpretation Comments GLUCOSE (test code = 2217) 103 MG/DL BUN (test code = 2208) 15 MG/DL CREATININE (test code = 2214) 0.77 MG/DL eGFR AMER. (test code 101 ML/MIN/1.73 = 01724) eGFR NON- AMER. (test 87 ML/MIN/1.73 code = 01379) CALC BUN/CREAT (test code = 19 RATIO [...] code = 2219) 24 U/L COMPREHENSIVE METABOLIC [id number] 00:00:00 Test Item Value Reference Range Interpretation Comments GLUCOSE (test code = 2217) 103 MG/DL BUN (test code = 2208) 15 MG/DL CREATININE (test code = 2214) 0.77 MG/DL eGFR AMER. (test code 101 ML/MIN/1.73 = 21949) eGFR NON- AMER. (test 87 ML/MIN/1.73 code = 45078) CALC BUN/CREAT (test code = 19 RATIO [...] code = 2821) 0.424 UIU/ML COMPREHENSIVE METABOLIC [id number] 00:00:00 Test Item Value Reference Range Interpretation Comments GLUCOSE (test code = 2217) 103 MG/DL BUN (test code = 2208) 15 MG/DL CREATININE (test code = 2214) 0.77 MG/DL eGFR AMER. (test code 101 ML/MIN/1.73 = 25136) eGFR NON- AMER. (test 87 ML/MIN/1.73 code = 43951) CALC BUN/CREAT (test code = 19 RATIO [...] code = 2219) 24 U/L COMPREHENSIVE METABOLIC [id number] 00:00:00 Test Item Value Reference Range Interpretation Comments GLUCOSE (test code = 2217) 103 MG/DL BUN (test code = 2208) 15 MG/DL CREATININE (test code = 2214) 0.77 MG/DL eGFR AMER. (test code 101 ML/MIN/1.73 = 58624) eGFR NON- AMER. (test 87 ML/MIN/1.73 code = 28706) CALC BUN/CREAT (test code = 19 RATIO [...] code = 2821) 0.424 UIU/ML COMPREHENSIVE METABOLIC [id number] 00:00:00 Test Item Value Reference Range Interpretation Comments GLUCOSE (test code = 2217) 103 MG/DL BUN (test code = 2208) 15 MG/DL CREATININE (test code = 2214) 0.77 MG/DL eGFR AMER. (test code 101 ML/MIN/1.73 = 40741) eGFR NON- AMER. (test 87 ML/MIN/1.73 code = 24471) CALC BUN/CREAT (test code = 19 RATIO [...] code = 2821) 0.424 UIU/ML COMPREHENSIVE METABOLIC [id number] 00:00:00 Test Item Value Reference Range Interpretation Comments GLUCOSE (test code = 2217) 103 MG/DL BUN (test code = 2208) 15 MG/DL CREATININE (test code = 2214) 0.77 MG/DL eGFR AMER. (test code 101 ML/MIN/1.73 = 65765) eGFR NON- AMER. (test 87 ML/MIN/1.73 code = 29758) CALC BUN/CREAT (test code = 19 RATIO [...] code = 2219) 24 U/L COMPREHENSIVE METABOLIC [id number] 00:00:00 Test Item Value Reference Range Interpretation Comments GLUCOSE (test code = 2217) 103 MG/DL BUN (test code = 2208) 15 MG/DL CREATININE (test code = 2214) 0.77 MG/DL eGFR AMER. (test code 101 ML/MIN/1.73 = 52931) eGFR NON- AMER. (test 87 ML/MIN/1.73 code = 62212) CALC BUN/CREAT (test code = 19 RATIO [...] (test code = 2821) 0.424 UIU/ML CULTURE, [id number] 00:00:00 Test Item Value Reference Range Interpretation Comments CULTURE, URINE (test SPECIMEN NUMBER: code = 92928) [id number] CULTURE, [id number] 00:00:00 Test Item Value Reference Range Interpretation Comments CULTURE, URINE (test SPECIMEN NUMBER: code = 02352) [id number] CULTURE, [id number] 00:00:00 Test Item Value Reference Range Interpretation Comments CULTURE, URINE (test SPECIMEN NUMBER: code = 12362) [id number] CULTURE, [id number] 00:00:00 Test Item Value Reference Range Interpretation Comments CULTURE, URINE (test SPECIMEN NUMBER: code = 84600) [id number] CULTURE, [id number] 00:00:00 Test Item Value Reference Range Interpretation Comments CULTURE, URINE (test SPECIMEN NUMBER: code = 64242) [id number] CULTURE, [id number] 00:00:00 Test Item Value Reference Range Interpretation Comments CULTURE, URINE (test SPECIMEN NUMBER: code = 08040) [id number] CULTURE, [id number] 00:00:00 Test Item Value Reference Range Interpretation Comments CULTURE, URINE (test SPECIMEN NUMBER: code = 18276) [id number] CULTURE, [id number] 00:00:00 Test Item Value Reference Range Interpretation Comments CULTURE, URINE (test SPECIMEN NUMBER: code = 19571) [id number] CULTURE, [id number] 00:00:00 Test Item Value Reference Range Interpretation Comments CULTURE, URINE (test SPECIMEN NUMBER: code = 86099) [id number] CULTURE, [id number] 00:00:00 Test Item Value Reference Range Interpretation Comments CULTURE, URINE (test SPECIMEN NUMBER: code = 54603) [id number] CULTURE, [id number] 00:00:00 Test Item Value Reference Range Interpretation Comments CULTURE, URINE (test SPECIMEN NUMBER: code = 67095) [id number] CULTURE, [id number] 00:00:00 Test Item Value Reference Range Interpretation Comments CULTURE, URINE (test SPECIMEN NUMBER: code = 10951) [id number] CULTURE, [id number] 00:00:00 Test Item Value Reference Range Interpretation Comments CULTURE, URINE (test SPECIMEN NUMBER: code = 95084) [id number] CULTURE, [id number] 00:00:00 Test Item Value Reference Range Interpretation Comments CULTURE, URINE (test SPECIMEN NUMBER: code = 19771) [id number]
[2022-08-27] MEDS ORDERED: METOCLOPRAMIDE 10 MG/2mL INJ ONE (14:08)
[2022-08-27] MEDS ORDERED: DIPHENHYDRAMINE 50 MG/ML VIAL ONE (14:08)
[2022-08-27] MEDS ORDERED: NA CHLORIDE 0.9% 500 ML ONE (14:08)
[2022-08-27] MEDS ORDERED: FAMOTIDINE 20 MG/2 ML VIAL IV ONE (14:09)
[2022-08-27 14:36] LABS: Absolute Lymphocytes (CBC) 1.3 K/uL (0.7-4.9); Hematocrit 40.2 % (36.0-45.0); Lymphocytes % 8.1 % (15.3-44.8); MCV 93.2 fL (80-100); MPV 6.7 fL (7.6-11.3); RBC Red Blood Cell Count 4.31 M/uL (3.86-4.86)
[2022-08-27 14:40] LABS: Urine Bacteria None Seen /HPF (<20); Urine Bilirubin NEGATIVE (Negative); Urine Blood 1+ (Negative); Urine Clarity Extremely Turbid (Clear); Urine Color Light-Yellow (Yellow); Urine Glucose 2+ (Negative); Urine Mucus 2+ /HPF (None Seen); Urine Protein 2+ (Negative); Urine RBC 21-50 /HPF (None Seen); Urine Urobilinogen Normal (Normal)
[2022-08-27 14:52] LABS: Albumin 4.2 g/dL (3.4-5.0); Bilirubin Total 0.3 mg/dL (0.2-1.0); Potassium 3.9 mEq/L (3.5-5.1)
[2022-08-27] MEDS ORDERED: LABETALOL 20 MG/4ML SYRINGE IV ONE (15:05)
[2022-08-27] MEDS ORDERED: ONDANSETRON 4 MG/2 ML VIAL ONE (15:38)
--- NOTE | 2022-08-27 16:08 | RAD REPORT ---
EXAM DESCRIPTION: US - Abdomen Exam Limited - 08/27/2022 2:09 pm CLINICAL HISTORY: RUQ pain COMPARISON: Abdomen Exam Limited dated 08/06/2022 TECHNIQUE: Sonographic grayscale and color flow images of the right upper abdominal quadrant were obtained. FINDINGS: The gallbladder demonstrates no gallstones. Evaluation is limited due to patient's limited mobility. Echogenic foci along the gallbladder wall with comet tail artifact, suggesting small polyp s or adenomyomatosis. No pericholecystic fluid or gallbladder wall thickening. The common bile duct i s normal measuring 3 mm. The liver demonstrates no findings of intrahepatic biliary dilatation. Diffuse parenchymal hypoattenu ation suggesting steatosis. IMPRESSION: No cholelithiasis or findings to suggest acute cholecystitis. Scattered gallbladder wall echogenic foci suggesting adenomyomatosis. Diffuse hepatic steatosis.
--- NOTE | 2022-08-27 16:49 | ER ---
Nurse's Notes [facility] Name: Jaimie Amanda Age: 61 yrs Sex: Female : 1960 Arrival Date: 08/27/2022 Time: 12:34 Bed 6 Private MD: Diagnosis: Nausea with vomiting, unspecified Presentation: 08/27 13:23 Chief complaint: Patient states: N/V and RLQ pain since yesterday. Coronavirus screen: ph Vaccine status: Patient reports receiving the 2nd dose of the covid vaccine. Ebola Screen: No symptoms or risks identified at this time. Initial Sepsis Screen: Does the patient meet any 2 criteria? No. Patient's initial sepsis screen is negative. Does the patient have a suspected source of infection? No. Patient's initial sepsis screen is negative. Risk Assessment: Do you want to hurt yourself or someone else? Patient reports no desire to harm self or others. Onset of symptoms was August 27, 2022. 13:23 Method Of Arrival: Ambulatory 13:23 Acuity: ZHEN 3 ph Triage Assessment: 16:47 General:. ld1 16:48 General: Appears in no apparent distress. Behavior is anxious. ld1 Historical: - Allergies: 13:25 hydrochlorothiazide; ph - PMHx: 13:25 Anxiety; Chronic Abdominal Pain; Hypertensive disorder; Hypothyroidism; low NA; NIDDM; ph - PSHx: 13:25 Thyroidectomy; ph - Immunization history:: Adult Immunizations unknown. - Social history:: Smoking status: Patient reports the use of cigarette tobacco products, unknown amount. Screenin:38 [facility] ED Fall Risk Assessment (Adult) History of falling in the last 3 months, bp including since admission No falls in past 3 months (0 pts). Abuse screen: Denies threats or abuse. Denies injuries from another. Nutritional screening: No deficits noted. Tuberculosis screening: No symptoms or risk factors identified. Assessment: 15:09 Reassessment: Pt c/o dizziness and nausea. See MAR for orders. ld1 16:38 Reassessment: PT INSISTING ON LEAVING. COUNSELED TO REMAIN BUT REFUSED. MD NOTIFIED. bp Pain: Denies pain. GI: Bowel sounds present X 4 quads. Abd is soft X 4 quads. 16:47 Reassessment: Pt insisting on leaving. IV d/c. Mother walked patient outside. Left at ld1 this time. Notified ERP. Vital Signs: 13:23 BP 205 / 100; Pulse 95; Resp 18; Temp 97.8; Pulse Ox 98% on R/A; Height 5 ft. 7 in. ; ph 14:36 BP 219 / 107; Pulse 98; Resp 18; Pulse Ox 100% on R/A; ld1 15:10 BP 222 / 161; Pulse 74; Resp 20; Pulse Ox 100% on R/A; ld1 15:43 BP 212 / 99; Pulse 77; Resp 18; Pulse Ox 100% on R/A; ld1 16:14 BP 217 / 103; Pulse 80; Resp 18; Pulse Ox 99% on R/A; ld1 ED Course: 12:36 Patient arrived in ED. mr 12:54 Jey White MD is Attending Physician. rt 13:25 Triage completed. ph 13:25 Arm band placed on. ph 13:52 Sadiq Rosales, CATY is Primary Nurse. bp 14:11 US Abdomen Limited In Process Unspecified. EDMS 14:25 Inserted saline lock: 22 gauge in right antecubital area, using aseptic technique. bp Blood collected. 15:10 Troponin High Sensitivity Sent. ld1 16:38 Patient has correct armband on for positive identification. Bed in low position. Call bp light in reach. Side rails up X2. 16:47 No provider procedures requiring assistance completed. IV discontinued, intact, ld1 bleeding controlled, No redness/swelling at site. Administered Medications: 14:15 Drug: NS 0.9% IV 500 ml Route: IV; Rate: 1 bolus; Site: right antecubital; bp 16:39 Follow up: IV Status: Completed infusion; IV Intake: 500ml bp 14:15 Drug: Famotidine IVP 20 mg Route: IVP; Site: right antecubital; bp 16:39 Follow up: Response: No adverse reaction bp 14:15 Drug: metoCLOPramide IVP 10 mg Route: IVP; Site: right antecubital; bp 16:39 Follow up: Response: No adverse reaction bp 14:15 Drug: diphenhydrAMINE IVP 25 mg Route: IVP; Site: right antecubital; bp 16:39 Follow up: Response: No adverse reaction bp 15:10 Drug: Labetalol IV 10 mg Route: IV; Rate: calculated rate; Site: right antecubital; ld1 15:31 Drug: Ondansetron IVP 4 mg Route: IVP; Site: right antecubital; ld1 16:39 Follow up: Response: No adverse reaction bp Medication: 16:50 VIS not applicable for this client. bp Intake: 16:39 IV: 500ml; Total: 500ml. bp Outcome: 16:48 Condition: unchanged ld1 16:49 Discharge ordered by MD. rt 16:50 Discharged to home ambulatory, with family. bp 16:50 Discharge instructions given to patient, Instructed on discharge instructions, follow up and referral plans. 16:50 Patient left the ED. bp Signatures: Dispatcher [employer] EDKY Radha Messina Patricia RN RN Sadiq Rosales RN RN bp Sims, Lauren, RN RN ld1 Jey White MD MD rt
--- NOTE | 2022-08-27 16:49 | EDPHYS ---
Physician Documentation [facility] Name: Jaimie Amanda Age: 61 yrs Sex: Female : 1960 Arrival Date: 08/27/2022 Time: 12:34 Bed 6 Private MD: COSTA Physician Jey White HPI: 08/27 19:27 This 61 yrs old Female presents to ER via Ambulatory with complaints of Abdominal Pain, rt Nausea/Vomiting. 19:27 Patient with chronic abdominal pain presents to the ED with nausea and vomiting. rt Patient was seen in the ED last night for the same. I continuing symptoms. Reports of pain to the right upper abdomen. Denies other acute complaints at this time. Symptoms are moderate in severity, no other aggravating or alleviating factors.. Historical: - Allergies: 13:25 hydrochlorothiazide; ph - PMHx: 13:25 Anxiety; Chronic Abdominal Pain; Hypertensive disorder; Hypothyroidism; low NA; NIDDM; ph - PSHx: 13:25 Thyroidectomy; ph - Immunization history:: Adult Immunizations unknown. - Social history:: Smoking status: Patient reports the use of cigarette tobacco products, unknown amount. ROS: 19:31 Constitutional: Negative for fever, chills, and weight loss, Neck: Negative for injury, rt pain, and swelling, Cardiovascular: Negative for chest pain, palpitations, and edema, Respiratory: Negative for shortness of breath, cough, wheezing, and pleuritic chest pain, Skin: Negative for injury, rash, and discoloration, Neuro: Negative for headache, weakness, numbness, tingling, and seizure, Psych: Negative for depression, anxiety, suicide ideation, homicidal ideation, and hallucinations. 19:31 Abdomen/GI: Positive for nausea and vomiting, Negative for abdominal pain. Exam: 19:31 Constitutional: This is a well developed, well nourished patient who is awake, alert, rt and in no acute distress. Head/Face: Normocephalic, atraumatic. Chest/axilla: Normal chest wall appearance and motion. Nontender with no deformity. No lesions are appreciated. Cardiovascular: Regular rate and rhythm with a normal S1 and S2. No gallops, murmurs, or rubs. Normal PMI, no JVD. No pulse deficits. Respiratory: Lungs have equal breath sounds bilaterally, clear to auscultation and percussion. No rales, rhonchi or wheezes noted. No increased work of breathing, no retractions or nasal flaring. Skin: Warm, dry with normal turgor. Normal color with no rashes, no lesions, and no evidence of cellulitis. MS/ Extremity: Pulses equal, no cyanosis. Neurovascular intact. Full, normal range of motion. Neuro: Awake and alert, GCS 15, oriented to person, place, time, and situation. Cranial nerves II-XII grossly intact. Motor strength 5/5 in all extremities. Sensory grossly intact. Cerebellar exam normal. Normal gait. Psych: Awake, alert, with orientation to person, place and time. Behavior, mood, and affect are within normal limits. 19:31 ECG was reviewed by the Attending Physician. 19:31 Abdomen/GI: Tenderness to the right upper quadrant without rebound, guarding, distention. Vital Signs: 13:23 BP 205 / 100; Pulse 95; Resp 18; Temp 97.8; Pulse Ox 98% on R/A; Height 5 ft. 7 in. ; ph 14:36 BP 219 / 107; Pulse 98; Resp 18; Pulse Ox 100% on R/A; ld1 15:10 BP 222 / 161; Pulse 74; Resp 20; Pulse Ox 100% on R/A; ld1 15:43 BP 212 / 99; Pulse 77; Resp 18; Pulse Ox 100% on R/A; ld1 16:14 BP 217 / 103; Pulse 80; Resp 18; Pulse Ox 99% on R/A; ld1 MDM: 13:30 Patient medically screened. rt 19:37 Differential diagnosis: Nonspecific abd pain, cholecystitis, pancreatitis. Data rt reviewed: vital signs, nurses notes. Consideration of Admission/Observation Escalation of care including admission/observation considered. Given acute drop in sodium, patient would likely benefit from admission, ever, she did leave without informing staff before I could discuss with her the results of her imaging or radiographic studies.. Test considered but Not performed: CT: Patient with innumerable CT scans in the past, believe that risk of radiation is greater than the risk of missed pathology such as bowel obstruction. Care significantly affected by the following chronic conditions: Hyponatremia. 08/27 13:48 Order name: CBC with Diff; Complete Time: 14:53 rt 08/27 13:48 Order name: CMP; Complete Time: 15:14 rt 08/27 13:48 Order name: Lipase; Complete Time: 15:14 rt 08/27 13:48 Order name: Urinalysis w/ reflexes; Complete Time: 14:53 rt 08/27 14:54 Order name: Troponin High Sensitivity; Complete Time: 15:48 rt 08/27 13:48 Order name: US Abdomen Limited; Complete Time: 16:14 rt 08/27 14:54 Order name: EKG; Complete Time: 14:54 rt 08/27 13:48 Order name: IV Saline Lock; Complete Time: 14:25 rt 08/27 13:48 Order name: Labs collected and sent; Complete Time: 14:25 rt 08/27 14:54 Order name: EKG - Nurse/Tech; Complete Time: 15:10 rt EC:31 Rate is 74 beats/min. Rhythm is regular, Normal Sinus Rhythm with No ectopy. QRS [place] rt is Normal. CO interval is normal. QRS interval is normal. QT interval is normal. No Q waves. T waves are Normal. No ST changes noted. Interpreted by me. Administered Medications: 14:15 Drug: NS 0.9% IV 500 ml Route: IV; Rate: 1 bolus; Site: right antecubital; bp 16:39 Follow up: IV Status: Completed infusion; IV Intake: 500ml bp 14:15 Drug: Famotidine IVP 20 mg Route: IVP; Site: right antecubital; bp 16:39 Follow up: Response: No adverse reaction bp 14:15 Drug: metoCLOPramide IVP 10 mg Route: IVP; Site: right antecubital; bp 16:39 Follow up: Response: No adverse reaction bp 14:15 Drug: diphenhydrAMINE IVP 25 mg Route: IVP; Site: right antecubital; bp 16:39 Follow up: Response: No adverse reaction bp 15:10 Drug: Labetalol IV 10 mg Route: IV; Rate: calculated rate; Site: right antecubital; ld1 15:31 Drug: Ondansetron IVP 4 mg Route: IVP; Site: right antecubital; ld1 16:39 Follow up: Response: No adverse reaction bp Disposition Summary: 08/27/22 16:49 Discharge Ordered Location: Home rt Condition: Undetermined rt Diagnosis - Nausea with vomiting, unspecified rt Followup: rt - With: Private Physician - When: 2 - 3 days - Reason: Forms: - Medication Reconciliation Form rt - Thank You Letter rt - Antibiotic Education rt - Prescription Opioid Use rt Signatures: Dispatcher [employer] Shruthi Valadez RN Sadiq Alas ph RN RN Maritza Currie RN RN ld1 Jey White MD MD rt
[2022-08-27 17:03] VITALS: TEMP 97.8
[2022-08-27 17:08] VITALS: BP 217/103; O2SAT 99
--- NOTE | 2022-08-28 17:42 | EKG ---
Test Date: 2022-08-27 Test Time: 15:07:22 Layboy Tender: DEBI MEASUREMENT RESULTS: Intervals: Rate: 74 WY: 170 QRSD: 84 QT: 382 QTc: 424 Lead: P: 55 WY: 170 QRS: 73 T: 62 INTERPRETIVE STATEMENTS: Normal sinus rhythm Normal ECG Compared to ECG 07/30/2022 21:58:46 No significant changes Electronically Signed On 08-28-22 17:39:41 CDT by Brian Booker
== END 2022-08-27 16:50 | disposition home or self-care (01) ==
LOC: ER 12:34
DX: R11.2 Nausea with vomiting, unspecified (principal); R10.31 Right lower quadrant pain; E11.9 Type 2 diabetes mellitus without complications; I10 Essential (primary) hypertension; Z72.0 Tobacco use; Z88.8 Allergy status to other drugs, medicaments and biological substances
CPT/HCPCS: 85025; 81001; 36415; 84484; 83690; 80053; 76705; J2765; J1200; J2405; J7040; 93005

== ENCOUNTER 2022-10-02 11:00 | Emergency (ER) | payer OTHER ==
--- OUTSIDE RECORDS SUMMARY | 2022-10-02 11:16 | XMS REPORT | Continuity of Care Document ---
:1960 Author Organization [facility] t Address [address] [place] [address] [place] [id number] Care Team Providers Name Role Phone [facility]pless Primary Care Physician MATT SIMPSON Attending Clinician Unavailable MATT SIMPSON Attending Clinician Unavailable Doctor Unassigned, [place] Attending Clinician Unavailable WALLY KRISHNAMURTHY Attending Clinician Unavailable Natacha Brewster Attending Clinician Payers Payer Name Policy Type Policy Number Effective Date Expiration Date 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 00:[facility]:00 00:00:00 [facility] Smoking Status Start Date Stop Date Source Smokes tobacco daily 2016-05-01 00:00:00 [facility] Medications Ordered Filled Start Stop Current Ordering Indication Dosage Frequency Signature Comments Components Source Medication Medication Date Date Medication? Clinician (SIG) Name Name LOSARTAN 2021-03 No POTASSIUM/H 2-05 YDROCHLOROT 00:00: HIAZ SAIDA 00 100-25 MG TABS TAKE 2021-03 No TABLET BY 1-04 MOUTH DAILY 00:00: AT BEDTIME 00 Dose 2021-03 No Unknown 03-12 00:00: 00 TAKE 2021-03 No TABLET BY 1-04 MOUTH EVERY 00:00: SIX HOURS 00 NEEDED VENLAFAXINE 2021-03 No HCL ER 150 1-04 MG CP24 00:00: 00 CLONIDINE 2021-03 No HYDROCHLORI 04 DE 0.3 MG 00:00: TABS 00 ZOLPIDEM 2021-03 No TARTRATE 10 1-04 MG TABS 00:00: 00 ONDANSETRON 2021-03 No 4 4MG Tablets 03-12 00:00: 00 TAKE 2021-03 No TABLET BY 1-04 MOUTH DAILY 00:00: AT BEDTIME 00 TEMAZEPAM 2021-03 No 30 MG CAPS 03-12 00:00: 00 TAKE 1 2022-1 No TABLET BY 1-04 MOUTH EVERY 00:00: SIX HOURS 00 NEEDED VENLAFAXINE 2-1 No HCL ER 150 1-04 MG CP24 00:00: 00 CLONIDINE 2-1 No 3 HYDROCHLORI 1-04 DE 0.3 MG 00:00: TABS 00 ZOLPIDEM 2-1 No TARTRATE 10 1-04 MG TABS 00:00: 00 TAKE 1 2021-1 No TABLET BY 1-04 MOUTH EVERY 00:00: SIX HOURS 00 NEEDED FOR NAUSEA AND VOMITING CLONAZEPAM 2-0 No 1 MG TABS 11-19 00:00: 00 CLONAZEPAM 2-0 No 1 MG TABS 11-19 00:00: 00 CLONAZEPAM 2-0 No 1 MG TABS 11-19 00:00: 00 TAKE 1 2-0 No TABLET BY 02 MOUTH EVERY 00:00: 12 HOURS 00 FOR 10 DAYS CLONAZEPAM 2022-0 No 2 MG TABS 11-08 00:00: 00 DICLOFENAC 2022-[address] - Tablets 00:00: 00 TAKE 2 2-0 No 750 TABLETS BY 02 MOUTH THREE 00:00: TIMES DAILY 00 NEEDED TAKE 1 2-0 No TABLET BY 02 MOUTH EVERY 00:00: 12 HOURS 00 FOR [...] capsule 00:00: 00 OXcarbazepi 2017-0 Yes 600mg Q.[id number] Take [address] [facility] [address] ne 2-23 [id number] mg by Yasir (TRILEPTAL) 10:23: 3D mouth 3 Med ical 600 [facility] 59 (three) Center tablet times daily. PARoxetine 2017-0 Yes 40mg QD Take [address] (PAXIL) 40 2-23 by [facility] tablet 10:23: nightly. [address] OXcarbazepi 2017-0 Yes 600mg Q.[id number] Take [address] ne 2-23 [id number] mg by [facility] (TRILEPTAL) 10:23: 3D mouth 3 Med ical 600 [facility] 59 (three) Center tablet times daily. PARoxetine 2017-0 Yes 40mg QD Take [address] (PAXIL) 40 2-23 by [facility] tablet 10:23: nightly. [address] OXcarbazepi 2017-0 Yes 600mg Q.[id number] Take [address] ne 2-23 [id number] mg by [facility] (TRILEPTAL) 10:23: 3D mouth 3 Med ical 600 [facility] 59 (three) Center tablet times daily. PARoxetine 2017-0 Yes 40mg QD Take [address] (PAXIL) 40 2-23 [facility] tablet 10:23: nightly. [address] OXcarbazepi 2017-0 Yes 600mg Q.[id number] Take [address] ne 2-23 [id number] mg by [facility] (TRILEPTAL) 10:23: 3D mouth 3 Med ical 600 [facility] 59 (three) Center tablet times daily. PARoxetine 2017-0 Yes 40mg QD Take [address] (PAXIL) 40 2-23 by [facility] tablet 10:23: nightly. [address] OXcarbazepi 2017-0 Yes 600mg Q.[id number] Take [address] [address] ne 2-23 [id number] mg by [facility] (TRILEPTAL) 10:23: 3D mouth 3 Med ical 600 MG 59 (three) Center tablet times daily. PARoxetine 2017-0 Yes 40mg QD Take [address] (PAXIL) 40 2-23 by [facility] tablet 10:23: nightly. [address] OXcarbazepi 2017-0 Yes 600mg Q.[id number] Take [address] ne 2-23 [id number] mg by [facility] (TRILEPTAL) 10:23: 3D mouth 3 Med ical 600 MG 59 (three) Center tablet times daily. OXcarbazepi 2017-0 Yes 600mg Q.[id number] Take [address] ne 2-23 [id number] mg by [facility] (TRILEPTAL) 10:23: 3D mouth 3 Med ical 600 MG 59 (three) Center tablet times daily. PARoxetine 2017-0 Yes 40mg QD Take [address] (PAXIL) 40 2-23 by [facility] tablet 10:23: nightly. [address] OXcarbazepi 2017-0 Yes 600mg Q.[id number] Take [address] ne 2-23 [id number] mg by [facility] (TRILEPTAL) 10:23: 3D mouth 3 Med ical 600 MG 59 (three) Center tablet times daily. PARoxetine 2017-0 Yes 40mg QD Take [address] (PAXIL) 40 2-23 by [facility] tablet 10:23: nightly. [address] OXcarbazepi 2017-0 Yes 600mg Q.[id number] Take [address] ne 2-23 [id number] mg by [facility] (TRILEPTAL) 10:23: 3D mouth 3 Med ical 600 MG 59 (three) Center tablet times daily. PARoxetine 2017-0 Yes 40mg QD Take [address] (PAXIL) 40 2-23 by [facility] tablet 10:23: nightly. [address] PARoxetine 2017-0 Yes 40mg QD Take [address] (PAXIL) 40 2-23 by [facility] tablet 10:23: nightly. [address] OXcarbazepi 2017-0 Yes 600mg Q.[id number] Take [address] ne 2-23 [id number] mg by [facility] (TRILEPTAL) 10:23: 3D mouth 3 Med ical 600 MG 59 (three) Center tablet times daily. PARoxetine 2017-0 Yes 40mg QD Take [address] (PAXIL) 40 2-23 by [facility] tablet 10:23: nightly. [address] OXcarbazepi 2017-0 Yes 600mg Q.[id number] Take [address] ne 2-23 [id number] mg by [facility] (TRILEPTAL) 10:23: 3D mouth 3 Med ical 600 MG 59 (three) Center tablet times daily. PARoxetine 2017-0 Yes 40mg QD Take [address] (PAXIL) 40 2-23 by [facility] tablet 10:23: nightly. [address] 2017-0 Yes 600mg Q.[id number] Take [address] ne 2-23 [id number] mg by [facility] (TRILEPTAL) 10:23: 3D mouth 3 Med ical 600 MG 59 (three) Center tablet times daily. PARoxetine 2017-0 Yes 40mg QD Take [address] (PAXIL) 40 2-23 by [facility] tablet 10:23: nightly. [address] 2017-0 Yes 600mg Q.[id number] Take [address] ne 2-23 [id number] mg by [facility] (TRILEPTAL) 10:23: 3D mouth 3 Med ical 600 MG 59 (three) Center tablet times daily. PARoxetine 2017-0 Yes 40mg QD Take [address] (PAXIL) 40 2-23 by [facility] tablet 10:23: nightly. [address] 2017-0 Yes 600mg Q.[id number] Take [address] ne 2-23 [id number] mg by [facility] (TRILEPTAL) 10:23: 3D mouth 3 Med ical 600 MG 59 (three) Center tablet times daily. PARoxetine 2017-0 Yes 40mg QD Take [address] (PAXIL) 40 2-23 by [facility] tablet 10:23: nightly. [address] 2017-0 Yes 600mg Q.[id number] Take [address] ne 2-23 [id number] mg by [facility] (TRILEPTAL) 10:23: 3D mouth 3 Med ical 600 MG 59 (three) Center tablet times daily. PARoxetine 2017-0 Yes 40mg QD Take [address] (PAXIL) 40 2-23 by mouth [facility] tablet 10:23: nightly. [address] OXcarbazepi 2017-0 Yes 600mg Q.17215301 Take [address] ne 2-23 [id number] mg by [facility] (TRILEPTAL) 10:23: 3D mouth 3 Med ical 600 MG 59 (three) Center tablet times daily. PARoxetine 2017-0 Yes 40mg QD Take [address] (PAXIL) 40 2-23 by mouth [facility] tablet 10:23: nightly. [facility] [address] OXcarbazepi 2017-0 Yes 600mg Q.[id number] Take [address] ne 2-23 [id number] mg by [facility] (TRILEPTAL) 10:23: 3D mouth 3 Med ical 600 MG 59 (three) Center tablet times daily. PARoxetine 2017-0 Yes 40mg QD Take [address] (PAXIL) 40 2-23 by mouth [facility] tablet 10:23: nightly. [facility] Yes 600mg Q.[id number] Take [address] ne 2-23 [id number] mg by [facility] (TRILEPTAL) 10:23: 3D mouth 3 Med ical 600 MG 59 (three) Center tablet times daily. PARoxetine 2017-0 Yes 40mg QD Take [address] (PAXIL) 40 2-23 by mouth [facility] tablet 10:23: nightly. [facility] Yes 600mg Q.[id number] Take [address] ne 2-23 [id number] mg by [facility] (TRILEPTAL) 10:23: 3D mouth 3 Med ical 600 MG 59 (three) Center tablet times daily. PARoxetine 2017-0 Yes 40mg QD Take [address] (PAXIL) 40 2-23 by [facility] tablet 10:23: nightly. [facility] Yes 600mg Q.[id number] Take [address] ne 2-23 [id number] mg by [facility] (TRILEPTAL) 10:23: 3D mouth 3 Med ical 600 MG 59 (three) Center tablet times daily. PARoxetine 2017-0 Yes 40mg QD Take [address] (PAXIL) 40 2-23 by mouth [facility] tablet 10:23: nightly. [facility] [address] OXcarbazepi 2017-0 Yes 600mg Q.[id number] Take [address] ne 2-23 [id number] mg by [facility] (TRILEPTAL) 10:23: 3D mouth 3 Med ical 600 MG 59 (three) Center tablet times daily. PARoxetine 2017-0 Yes 40mg QD Take [address] (PAXIL) 40 2-23 by mouth [facility] tablet 10:23: nightly. [address] OXcarbazepi 2017-0 Yes 600mg Q.[id number] Take [address] ne 2-23 [id number] mg by [facility] (TRILEPTAL) 10:23: 3D mouth 3 Med ical 600 MG 59 (three) Center tablet times daily. OXcarbazepi 2017-0 Yes 600mg Q.[id number] Take [address] ne 2-23 [id number] mg by [facility] (TRILEPTAL) 10:23: 3D mouth 3 Med ical 600 MG 59 (three) Center tablet times daily. PARoxetine 2017-0 Yes 40mg QD Take [address] (PAXIL) 40 2-23 by mouth [facility] tablet 10:23: nightly. [address] OXcarbazepi 2017-0 Yes 600mg Q.[id number] Take [address] ne 2-23 [id number] mg by [facility] (TRILEPTAL) 10:23: 3D mouth 3 Med ical 600 MG 59 (three) Center tablet times daily. PARoxetine 2017-0 Yes 40mg QD Take [address] (PAXIL) 40 2-23 by mouth [facility] tablet 10:23: nightly. [address] OXcarbazepi 2017-0 Yes 600mg Q.[id number] Take [address] ne 2-23 [id number] mg by [facility] (TRILEPTAL) 10:23: 3D mouth 3 Med ical 600 MG 59 (three) Center tablet times daily. PARoxetine 2017-0 Yes 40mg QD Take [address] (PAXIL) 40 2-23 by mouth [facility] tablet 10:23: nightly. [address] PARoxetine 2017-0 Yes 40mg QD Take [address] (PAXIL) 40 2-23 by mouth [facility] tablet 10:23: nightly. [address] OXcarbazepi 2017-0 Yes 600mg Q.[id number] Take [address] ne 2-23 [id number] mg by [facility] (TRILEPTAL) 10:23: 3D mouth 3 Med ical 600 MG 59 (three) Center tablet times daily. PARoxetine 2017-0 Yes 40mg QD Take [address] (PAXIL) 40 2-23 by mouth [facility] tablet 10:23: nightly. [address] 2017-0 Yes 600mg Q.[id number] Take [address] ne 2-23 [id number] mg by [facility] (TRILEPTAL) 10:23: 3D mouth 3 Med ical 600 MG 59 (three) Center tablet times daily. PARoxetine 2017-0 Yes 40mg QD Take [address] (PAXIL) 40 2-23 by mouth [facility] tablet 10:23: nightly. [address] 2017-0 Yes 600mg Q.[id number] Take [address] ne 2-23 [id number] mg by [facility] (TRILEPTAL) 10:23: 3D mouth 3 Med ical 600 MG 59 (three) Center tablet times daily. PARoxetine 2017-0 Yes 40mg QD Take [address] (PAXIL) 40 2-23 by mouth [facility] tablet 10:23: nightly. [address] 2017-0 Yes 600mg Q.[id number] Take [address] ne 2-23 [id number] mg by [facility] (TRILEPTAL) 10:23: 3D mouth 3 Med ical 600 MG 59 (three) Center tablet times daily. PARoxetine 2017-0 Yes 40mg QD Take [address] (PAXIL) 40 2-23 by mouth [facility] tablet 10:23: nightly. [address] 2017-0 Yes 600mg Q.[id number] Take [address] ne 2-23 [id number] mg by [facility] (TRILEPTAL) 10:23: 3D mouth 3 Med ical 600 MG 59 (three) Center tablet times daily. PARoxetine 2017-0 Yes 40mg QD Take [address] (PAXIL) 40 2-23 by [facility] tablet 10:23: nightly. [address] 2017-0 Yes 600mg Q.[id number] Take [address] ne 2-23 [id number] mg by [facility] (TRILEPTAL) 10:23: 3D mouth 3 Med ical 600 MG 59 (three) Center tablet times daily. PARoxetine 2017-0 Yes 40mg QD Take [address] (PAXIL) 40 2-23 by mouth [facility] tablet 10:23: nightly. [address] OXcarbazepi 2017-0 Yes 600mg Q.[id number] Take [address] ne 2-23 [id number] mg by [facility] (TRILEPTAL) 10:23: 3D mouth 3 Med ical 600 MG 59 (three) Center tablet times daily. PARoxetine 2017-0 Yes 40mg QD Take [address] (PAXIL) 40 2-23 by mouth [facility] tablet 10:23: nightly. [address] OXcarbazepi 2017-0 Yes 600mg Q.[id number] Take [address] ne 2-23 [id number] mg by [facility] (TRILEPTAL) 10:23: 3D mouth 3 Med ical 600 MG 59 (three) Center tablet times daily. OXcarbazepi 2017-0 Yes 600mg Q.[id number] Take [address] ne 2-23 [id number] mg by [facility] (TRILEPTAL) 10:23: 3D mouth 3 Med ical 600 MG 59 (three) Center tablet times daily. PARoxetine 2017-0 Yes 40mg QD Take [address] (PAXIL) 40 2-23 by mouth [facility] tablet 10:23: nightly. [address] OXcarbazepi 2017-0 Yes 600mg Q.[id number] Take [address] ne 2-23 [id number] mg by [facility] (TRILEPTAL) 10:23: 3D mouth 3 Med ical 600 MG 59 (three) Center tablet times daily. PARoxetine 2017-0 Yes 40mg QD Take [address] (PAXIL) 40 2-23 by mouth [facility] tablet 10:23: nightly. [address] OXcarbazepi 2017-0 Yes 600mg Q.[id number] Take [address] ne 2-23 [id number] mg by [facility] (TRILEPTAL) 10:23: 3D mouth 3 Med ical 600 MG 59 (three) Center tablet times daily. PARoxetine 2017-0 Yes 40mg QD Take [address] (PAXIL) 40 2-23 by mouth [facility] tablet 10:23: nightly. [facility] anjelica [address] OXcarbazepi 2017-0 Yes 600mg Q.[id number] Take [address] ne 2-23 [id number] mg by [facility] (TRILEPTAL) 10:23: 3D mouth 3 Med ical 600 MG 59 (three) Center tablet times daily. PARoxetine 2017-0 Yes 40mg QD Take [address] (PAXIL) 40 2-23 by mouth [facility] tablet 10:23: nightly. [facility] [address] PARoxetine 2017-0 Yes 40mg QD Take [address] (PAXIL) 40 2-23 by mouth [facility] tablet 10:23: nightly. [facility] [address] OXcarbazepi 2017-0 Yes 600mg Q.[id number] Take [address] ne 2-23 [id number] mg by [facility] (TRILEPTAL) 10:23: 3D mouth 3 Med ical 600 MG 59 (three) Center tablet times daily. PARoxetine 2017-0 Yes 40mg QD Take [address] (PAXIL) 40 2-23 by mouth [facility] tablet 10:23: nightly. [facility] anjelica [address] OXcarbazepi 2017-0 Yes 600mg Q.[id number] Take [address] ne 2-23 [id number] mg by [facility] (TRILEPTAL) 10:23: 3D mouth 3 Med ical 600 MG 59 (three) Center tablet times daily. PARoxetine 2017-0 Yes 40mg QD Take [address] (PAXIL) 40 2-23 by mouth [facility] tablet 10:23: nightly. [facility] [address] OXcarbazepi 2017-0 Yes 600mg Q.[id number] Take [address] ne 2-23 [id number] mg by [facility] (TRILEPTAL) 10:23: 3D mouth 3 Med ical 600 MG 59 (three) Center tablet times daily. PARoxetine 2017-0 Yes 40mg QD Take [address] (PAXIL) 40 2-23 by mouth [facility] tablet 10:23: nightly. [facility] anjelica [address] OXcarbazepi 2017-0 Yes 600mg Q.[id number] Take [address] ne 2-23 [id number] mg by [facility] (TRILEPTAL) 10:23: 3D mouth 3 Med ical 600 MG 59 (three) Center tablet times daily. PARoxetine 2017-0 Yes 40mg QD Take [address] (PAXIL) 40 2-23 by mouth [facility] tablet 10:23: nightly. [facility] [address] OXcarbazepi 2017-0 Yes 600mg Q.[id number] Take [address] ne 2-23 [id number] mg by [facility] (TRILEPTAL) 10:23: 3D mouth 3 Med ical 600 MG 59 (three) Center tablet times daily. PARoxetine 2017-0 Yes 40mg QD Take [address] (PAXIL) 40 2-23 by mouth [facility] tablet 10:23: nightly. [facility] [address] OXcarbazepi 2017-0 Yes 600mg Q.[id number] Take [address] ne 2-23 [id number] mg by [facility] (TRILEPTAL) 10:23: 3D mouth 3 Med ical 600 MG 59 (three) Center tablet times daily. PARoxetine 2017-0 Yes 40mg QD Take [address] (PAXIL) 40 2-23 by mouth [facility] tablet 10:23: nightly. [facility] [address] OXcarbazepi 2017-0 Yes 600mg Q.[id number] Take [address] ne 2-23 [id number] mg by [facility] (TRILEPTAL) 10:23: 3D mouth 3 Med ical 600 MG 59 (three) Center tablet times daily. PARoxetine 2017-0 Yes 40mg QD Take [address] (PAXIL) 40 2-23 by mouth [facility] tablet 10:23: nightly. [facility] [address] OXcarbazepi 2017-0 Yes 600mg Q.[id number] Take [address] ne 2-23 [id number] mg by [facility] (TRILEPTAL) 10:23: 3D mouth 3 Med ical 600 MG 59 (three) Center tablet times daily. OXcarbazepi 2017-0 Yes 600mg Q.[id number] Take [address] ne 2-23 [id number] mg by [facility] (TRILEPTAL) 10:23: 3D mouth 3 Med ical 600 MG 59 (three) Center tablet times daily. PARoxetine 2017-0 Yes 40mg QD Take [address] (PAXIL) 40 2-23 by mouth [facility] tablet 10:23: nightly. [address] OXcarbazepi 2017-0 Yes 600mg Q.[id number] Take [address] ne 2-23 [id number] mg by [facility] (TRILEPTAL) 10:23: 3D mouth 3 Med ical 600 MG 59 (three) Center tablet times daily. PARoxetine 2017-0 Yes 40mg QD Take [address] (PAXIL) 40 2-23 by mouth [facility] tablet 10:23: nightly. [address] OXcarbazepi 2017-0 Yes 600mg Q.[id number] Take [address] ne 2-23 [id number] mg by [facility] (TRILEPTAL) 10:23: 3D mouth 3 Med ical 600 MG 59 (three) Center tablet times daily. PARoxetine 2017-0 Yes 40mg QD Take [address] (PAXIL) 40 2-23 by mouth [facility] tablet 10:23: nightly. [address] PARoxetine 2017-0 Yes 40mg QD Take [address] (PAXIL) 40 2-23 by mouth [facility] tablet 10:23: nightly. [address] OXcarbazepi 2017-0 Yes 600mg Q.[id number] Take [address] ne 2-23 [id number] mg by [facility] (TRILEPTAL) 10:23: 3D mouth 3 Med ical 600 MG 59 (three) Center tablet times daily. PARoxetine 2017-0 Yes 40mg QD Take [address] (PAXIL) 40 2-23 by mouth [facility] tablet 10:23: nightly. [address] OXcarbazepi 2017-0 Yes 600mg Q.[id number] Take [address] ne 2-23 [id number] mg by [facility] (TRILEPTAL) 10:23: 3D mouth 3 Med ical 600 MG 59 (three) Center tablet times daily. PARoxetine 2017-0 Yes 40mg QD Take [address] (PAXIL) 40 2-23 by [facility] tablet 10:23: nightly. [address] LORazepam 2017-0 Yes 1mg Take 1 [...] Goal Plan of Care Note [code = 40658-7] Goal Plan of Care Note [code = 08191-9] Goal Plan of Care Note [code = 20558-8] Goal Plan of Care Note [code = 55471-0] Goal Plan of Care Note [code = 39385-2] Goal Plan of Care Note [code = 29938-0] Goal Plan of Care Note [code = 60248-5] Goal Plan of Care Note [code = 09747-5] Goal Plan of Care Note [code = 75268-8] Goal Plan of Care Note [code = 01644-4] Goal Plan of Care Note [code = 14320-9] Goal Plan of Care Note [code = 37579-1] Goal Plan of Care Note [code = 50076-7] Goal Plan of Care Note [code = 95931-7] Goal Plan of Care Note [code = 59925-7] Goal Plan of Care Note [code = 94463-7] Goal Plan of Care Note [code = 60285-0] Goal Plan of Care Note [code = 42026-2] Goal Plan of Care Note [code = 49040-1] Goal Plan of Care Note [code = 74738-0] Goal Plan of Care Note [code = 78817-2] Goal Plan of Care Note [code = 24389-0] Goal Plan of Care Note [code = 79930-7] Goal Plan of Care Note [code = 97859-8] Goal Plan of Care Note [code = 36412-6] Goal Plan of Care Note [code = 42400-6] Goal Plan of Care Note [code = 36192-4] Goal Plan of Care Note [code = 72320-2] Goal Plan of Care Note [code = 17194-1] Goal Plan of Care Note [code = 92099-9] Goal Plan of Care Note [code = 00279-4] Goal Plan of Care Note [code = 08955-1] Goal Plan of Care Note [code = 22129-0] Goal Plan of Care Note [code = 75366-7] Goal Plan of Care Note [code = 94396-2] Goal Plan of Care Note [code = 03940-6] Goal Plan of Care Note [code = 44947-1] Goal Plan of Care Note [code = 85218-1] Goal Plan of Care Note [code = 51323-7] Goal Plan of Care Note [code = 34356-5] Goal Plan of Care Note [code = 07500-6] Goal Plan of Care Note [code = 37169-1] Goal Plan of Care Note [code = 24664-3] Goal Plan of Care Note [code = 16345-6] Goal Plan of Care Note [code = 07103-5] Goal Plan of Care Note [code = 02561-7] Goal Plan of Care Note [code = 31253-0] Goal Plan of Care Note [code = 62576-3] Goal Plan of Care Note [code = 66896-1] Goal Plan of Care Note [code = 77566-1] Goal Plan of Care Note [code = 48946-1] Goal Plan of Care Note [code = 14411-2] Goal Plan of Care Note [code = 46749-6] Goal Plan of Care Note [code = 58346-3] Goal Plan of Care Note [code = 39385-7] Goal Plan of Care Note [code = 14920-9] Goal Plan of Care Note [code = 00023-6] Goal Plan of Care Note [code = 68799-1] Goal Plan of Care Note [code = 51832-7] Goal Plan of Care Note [code = 02609-1] Goal Plan of Care Note [code = 11451-2] Goal Plan of Care Note [code = 73342-3] Goal Plan of Care Note [code = 62471-7] Goal Plan of Care Note [code = 82059-9] Goal Plan of Care Note [code = 42501-2] Goal Plan of Care Note [code = 38650-2] Goal Plan of Care Note [code = 19387-7] Goal Plan of Care Note [code = 11293-7] Goal Plan of Care Note [code = 02948-6] Goal Plan of Care Note [code = 02994-1] Goal Plan of Care Note [code = 71153-8] Goal Plan of Care Note [code = 74039-2] Goal Plan of Care Note [code = 49306-0] Goal Plan of Care Note [code = 83769-7] Goal Plan of Care Note [code = 36699-0] Goal Plan of Care Note [code = 43727-2] Goal Plan of Care Note [code = 51325-2] Goal Plan of Care Note [code = 52888-3] Goal Plan of Care Note [code = 50520-8] Goal Plan of Care Note [code = 02923-5] Goal Plan of Care Note [code = 49381-7] Goal Plan of Care Note [code = 14363-6] Goal Plan of Care Note [code = 77073-9] Goal Plan of Care Note [code = 55471-4] Goal Plan of Care Note [code = 60132-8] Goal Plan of Care Note [code = 63964-5] Goal Plan of Care Note [code = 58678-1] Goal Plan of Care Note [code = 91558-2] Goal Plan of Care Note [code = 54035-0] Goal Plan of Care Note [code = 37699-7] Goal Plan of Care Note [code = 89228-4] Goal Plan of Care Note [code = 40439-9] Goal Plan of Care Note [code = 52095-8] Goal Plan of Care Note [code = 32928-6] Goal Plan of Care Note [code = 87111-6] Goal Plan of Care Note [code = 88096-7] Goal Plan of Care Note [code = 98413-0] Goal Plan of Care Note [code = 24767-4] Goal Plan of Care Note [code = 35967-7] Goal Plan of Care Note [code = 98574-7] Goal Plan of Care Note [code = 39314-4] Goal Plan of Care Note [code = 65469-0] Goal Plan of Care Note [code = 23440-1] Goal Plan of Care Note [code = 79870-7] Goal Plan of Care Note [code = 04669-2] Goal Plan of Care Note [code = 71416-3] Goal Plan of Care Note [code = 39094-4] Goal Plan of Care Note [code = 62800-0] Goal Plan of Care Note [code = 14747-3] Goal Plan of Care Note [code = 26558-7] Goal Plan of Care Note [code = 89882-1] Goal Plan of Care Note [code = 07166-7] Goal Plan of Care Note [code = 96784-8] Goal Plan of Care Note [code = 35229-3] Goal Plan of Care Note [code = 23724-8] Goal Plan of Care Note [code = 62092-8] Goal Plan of Care Note [code = 88408-1] Goal Plan of Care Note [code = 34205-7] Goal Plan of Care Note [code = 32005-3] Goal Plan of Care Note [code = 61631-5] Goal Plan of Care Note [code = 72125-5] Goal Plan of Care Note [code = 93396-4] Goal Plan of Care Note [code = 23590-3] Goal Plan of Care Note [code = 81484-7] Goal Plan of Care Note [code = 57020-7] Goal Plan of Care Note [code = 11504-8] Goal Plan of Care Note [code = 41591-7] Goal Plan of Care Note [code = 10323-0] Goal Plan of Care Note [code = 97450-6] Goal Plan of Care Note [code = 50271-7] Goal Plan of Care Note [code = 17676-7] Goal Plan of Care Note [code = 69764-8] Goal Plan of Care Note [code = 57086-4] Goal Plan of Care Note [code = 99446-6] Goal Plan of Care Note [code = 06916-2] Goal Plan of Care Note [code = 10182-1] Goal Plan of Care Note [code = 41404-8] Goal Plan of Care Note [code = 77922-6] Goal Plan of Care Note [code = 94790-1] Goal Plan of Care Note [code = 52591-9] Goal Plan of Care Note [code = 97842-0] Goal Plan of Care Note [code = 01452-3] Goal Plan of Care Note [code = 10628-7] Goal Plan of Care Note [code = 84806-6] Goal Plan of Care Note [code = 80731-0] Goal Plan of Care Note [code = 89302-9] Goal Plan of Care Note [code = 56041-5] Goal Plan of Care Note [code = 65934-9] Goal Plan of Care Note [code = 05315-6] Goal Plan of Care Note [code = 53034-8] Goal Plan of Care Note [code = 63448-3] Goal Plan of Care Note [code = 58714-0] Goal Plan of Care Note [code = 59317-0] Goal Plan of Care Note [code = 01475-5] Goal Plan of Care Note [code = 86176-1] Goal Plan of Care Note [code = 12357-7] Goal Plan of Care Note [code = 42256-9] Goal Plan of Care Note [code = 85099-8] Goal Plan of Care Note [code = 50018-3] Goal Plan of Care Note [code = 09309-3] Goal Plan of Care Note [code = 28363-3] Goal Plan of Care Note [code = 04437-4] Goal Plan of Care Note [code = 71414-8] Goal Plan of Care Note [code = 26111-9] Goal Plan of Care Note [code = 40467-8] Goal Plan of Care Note [code = 21861-0] Goal Plan of Care Note [code = 66126-4] Goal Plan of Care Note [code = 99352-8] Goal Plan of Care Note [code = 24884-5] Goal Plan of Care Note [code = 24141-0] Goal Plan of Care Note [code = 73017-1] Goal Plan of Care Note [code = 57410-7] Goal Plan of Care Note [code = 17369-9] Goal Plan of Care Note [code = 71982-7] Goal Plan of Care Note [code = 33770-0] Goal Plan of Care Note [code = 93603-5] Goal Plan of Care Note [code = 12858-8] Goal Plan of Care Note [code = 79976-2] Goal Plan of Care Note [code = 17034-8] Goal Plan of Care Note [code = 25038-1] Goal Plan of Care Note [code = 25609-6] Goal Plan of Care Note [code = 96180-7] Goal Plan of Care Note [code = 04037-3] Goal Plan of Care Note [code = 15485-4] Goal Plan of Care Note [code = 13192-9] Goal Plan of Care Note [code = 53025-4] Goal Plan of Care Note [code = 25589-6] Goal Plan of Care Note [code = 45773-7] Goal Plan of Care Note [code = 98159-2] Goal Plan of Care Note [code = 96885-9] Goal Plan of Care Note [code = 90678-2] Goal Plan of Care Note [code = 94812-6] Goal Plan of Care Note [code = 87984-4] Goal Plan of Care Note [code = 27830-3] Goal Plan of Care Note [code = 09868-5] Goal Plan of Care Note [code = 71147-6] Goal Plan of Care Note [code = 58734-1] Goal Plan of Care Note [code = 81559-0] Goal Plan of Care Note [code = 22905-1] Goal Plan of Care Note [code = 32510-9] Goal Plan of Care Note [code = 65374-9] Goal Plan of Care Note [code = 06209-6] Goal Plan of Care Note [code = 29078-8] Goal Plan of Care Note [code = 46755-6] Goal Plan of Care Note [code = 59102-2] Goal Plan of Care Note [code = 24158-8] Goal Plan of Care Note [code = 35056-6] Goal Plan of Care Note [code = 33987-5] Encounters Start End Encounter Admission Attending Care Care Encounter Source Date/Time Date/Time Type Type Clinicians Facility Department ID 2021-06-01 Outpatient [facility] [id number] [place] 01:36:[id number] [facility] 2022-05-24 2022-05-24 Outpatient SFA SFA [id number] 023 Cristian 10:36:59 10:36:59 0318 F Jerman 2022-02-11 2022-02-11 Outpatient SFA SFA [id number] 022 Cristian 09:04:48 09:04:48 1206 F Jerman 2022-02-10 2022-02-10 Outpatient SFA SFA [id number] 022 Cristian 09:29:34 09:29:34 1205 F Jerman 2022-02-10 2022-02-10 Outpatient [id number]- [id number] 7s10e8-1 00:00:00 00:00:00 Visit 4089-4cab 089-4cab-9 -7or9-r1o bf5-z7v290 832flol31 bafa93 2022-01-10 2022-01-10 Outpatient SFA SFA 00648-4 022 Cristian 09:16:14 09:16:14 1104 F Jerman 2022-01-10 2022-01-10 Outpatient m9ogtyx2- [id number] f2 accaa6-a 00:00:00 00:00:00 Visit aca9-4c83 ca9-4c83-a -w9nn-ev2 7eb-bc13f3 0p1z785o2 f032f9 2021-12-19 2021-12-19 Outpatient SFA SFA 24841-9 022 Cristian 16:11:31 16:11:31 1013 F Jerman 2021-12-19 2021-12-19 Outpatient [id number]- [id number] 466cae-a 00:00:00 00:00:00 Visit m488-578q 770-441f-a -adae-62b amelia-62bace havei92lf fd81af 2021-09-17 2021-09-17 Outpatient tju5oief- [id number] aa r9lnpw-8 00:00:00 00:00:00 Visit 935a-4f50 35a-4f50-b -a53k-c2i 77d-c2ba85 z766747x3 1264a6 2020-08-03 2020-08-03 Outpatient MATT VÁSQUEZ [facility] [id number] [facility] 10:00:00 10:00:00 MATT SIMPSON [facility] 2020-07-25 2020-07-25 Orders Doctor ABE [id number] 00:00:00 00:00:00 Only Unassigned, BK 350.1.13.10 [place] [facility] 4.2.7.2.686 [id number] 2019-09-26 2019-09-26 Outpatient Bertin KRISHNAMURTHY [facility] [id number] Univers 16:00:00 16:00:00 [facility] 2018-10-21 2018-10-21 Telephone Gramm, [facility] [id number] 00:00:00 00:00:00 Natacha Nguyen 350.1.13.10 [facility]686 [id number] [address] Building Results Test Description Test Time Test Comments Results Result Comments Source TSH, THIRD GENERATION 2022-05-26 02:57:49 Test Item Value Reference Range Interpretation Comme nts TSH, THIRD GENERATION (test code = 2821) 6.350 UIU/ML 0.400-4.100 H LIPID [id number] 01:09:34 Test Item Value Reference Range Interpretation [...] MOREINFORMATION , SEE CLIENT ANNOUNCE MENT AT [email or web address] RISK RATIO LDL/HDL 2.73 RATIO <3.22 [facility] has important (test code = 2238) pathology staff changes effecti ve 05/07/2022. New pathology staff will provide uninter rupted, excellent patie nt care and clinical consultation. S ee URL: [email or web address] S OTHERWISE INDIC ATED, ALL TESTING PER FORMED AT [facility] [employer] [facility], [address] [address] [place] [employer] DIRECTOR: Andrew WHITLEY CONNOR NUMBER [id number] CAP ACCREDITATION N O. [id number] HEMOGLOBIN [id number] 03:17:24 Test Item Value Reference Range Interpretation Comments HEMOGLOBIN A1c (test 6.4 % 4.2-5.6 H AMERIC AN DIABETES code = 66271) ASSOCIATION IDELINES FOR HGB A1C: PREDIABETES/INC REASED [...] TESTING OR LABORATORY C ONSULTATION. TSH, THIRD [id number] 05:15:49 Test Item Value Reference Range Interpretation Comments TSH, THIRD GENERATION (test code 2.080 UIU/ML 0.400-4.100 = 2821) HEMOGLOBIN [id number] 03:46:00 Test Item Value Reference Range Interpretation Comments HEMOGLOBIN A1c (test 6.6 % 4.2-5.6 H AMERIC AN DIABETES code = 06065) ASSOCIATION IDELINES FOR HGB A1C: PREDIABETES/INC REASED [...] INDICATED, ALL TESTING PER FORMED ATCLINICAL PATH [email or web address] [facility]. [address] [place] [address] 54 LABORATORY DIRE CTOR: DIANA RUSS M.D. CLIA NUMBER [id number] [place]. [id number] LIPID [id number] 02:59:52 Test Item Value Reference Range Interpretation [...] , SEE CLIENT ANNOUNCE MENT AT [email or web address] RISK RATIO LDL/HDL 4.02 RATIO <3.22 H (test code = 2238) [id number] 00:00:00 Test Item Value Reference Range Interpretation Comments TSH, THIRD GENERATION (test code 2.080 UIU/ML = 2821) [id number] 00:00:00 Test Item Value Reference Range Interpretation Comments TSH, THIRD GENERATION (test code 2.080 UIU/ML = 2821) [id number] 00:00:00 Test Item Value Reference Range Interpretation Comments TSH, THIRD GENERATION (test code 2.080 UIU/ML = 2821) LIPID [id number] 00:00:00 Test Item Value Reference Range Interpretation Comments CHOLESTEROL (test code = 2210) 292 MG/DL TRIGLYCERIDES (test code = 2232) 184 MG/DL HDL CHOLESTEROL (test code = 2220) 51 MG/DL CALC LDL CHOL (test code = 2237) 205 MG/DL RISK RATIO LDL/HDL (test code = 4.02 RATIO 2238) LIPID [id number] 00:00:00 Test Item Value Reference Range Interpretation Comments CHOLESTEROL (test code = 2210) 292 MG/DL TRIGLYCERIDES (test code = 2232) 184 MG/DL HDL CHOLESTEROL (test code = 2220) 51 MG/DL CALC LDL CHOL (test code = 2237) 205 MG/DL RISK RATIO LDL/HDL (test code = 4.02 RATIO 2238) HEMOGLOBIN [id number] 00:00:00 Test Item Value Reference Range Interpretation Comments HEMOGLOBIN A1c (test code = 59746) 6.6 % HEMOGLOBIN [id number] 00:00:00 Test Item Value Reference Range Interpretation Comments HEMOGLOBIN A1c (test code = 45601) 6.6 % HEMOGLOBIN [id number] 00:00:00 Test Item Value Reference Range Interpretation Comments HEMOGLOBIN A1c (test code = 42738) 6.6 % [id number] 00:00:00 Test Item Value Reference Range Interpretation Comments TSH, THIRD GENERATION (test code 2.080 UIU/ML = 2821) [id number] 00:00:00 Test Item Value Reference Range Interpretation Comments TSH, THIRD GENERATION (test code 2.080 UIU/ML = 2821) [id number] 00:00:00 Test Item Value Reference Range Interpretation Comments TSH, THIRD GENERATION (test code 2.080 UIU/ML = 2821) LIPID [id number] 00:00:00 Test Item Value Reference Range Interpretation Comments CHOLESTEROL (test code = 2210) 292 MG/DL TRIGLYCERIDES (test code = 2232) 184 MG/DL HDL CHOLESTEROL (test code = 2220) 51 MG/DL CALC LDL CHOL (test code = 2237) 205 MG/DL RISK RATIO LDL/HDL (test code = 4.02 RATIO 2238) LIPID [id number] 00:00:00 Test Item Value Reference Range Interpretation Comments CHOLESTEROL (test code = 2210) 292 MG/DL TRIGLYCERIDES (test code = 2232) 184 MG/DL HDL CHOLESTEROL (test code = 2220) 51 MG/DL CALC LDL CHOL (test code = 2237) 205 MG/DL RISK RATIO LDL/HDL (test code = 4.02 RATIO 2238) HEMOGLOBIN [id number] 00:00:00 Test Item Value Reference Range Interpretation Comments HEMOGLOBIN A1c (test code = 80969) 6.6 % HEMOGLOBIN [id number] 00:00:00 Test Item Value Reference Range Interpretation Comments HEMOGLOBIN A1c (test code = 96105) 6.6 % HEMOGLOBIN [id number] 00:00:00 Test Item Value Reference Range Interpretation Comments HEMOGLOBIN A1c (test code = 93260) 6.6 % [id number] 00:00:00 Test Item Value Reference Range Interpretation Comments TSH, THIRD GENERATION (test code 2.080 UIU/ML = 2821) [id number] 00:00:00 Test Item Value Reference Range Interpretation Comments TSH, THIRD GENERATION (test code 2.080 UIU/ML = 2821) LIPID [id number] 00:00:00 Test Item Value Reference Range Interpretation Comments CHOLESTEROL (test code = 2210) 292 MG/DL TRIGLYCERIDES (test code = 2232) 184 MG/DL HDL CHOLESTEROL (test code = 2220) 51 MG/DL CALC LDL CHOL (test code = 2237) 205 MG/DL RISK RATIO LDL/HDL (test code = 4.02 RATIO 2238) HEMOGLOBIN [id number] 00:00:00 Test Item Value Reference Range Interpretation Comments HEMOGLOBIN A1c (test code = 58306) 6.6 % HEMOGLOBIN [id number] 00:00:00 Test Item Value Reference Range Interpretation Comments HEMOGLOBIN A1c (test code = 98912) 6.6 % [id number] 00:00:00 Test Item Value Reference Range Interpretation Comments TSH, THIRD GENERATION (test code 2.080 UIU/ML = 2821) [id number] 00:00:00 Test Item Value Reference Range Interpretation Comments TSH, THIRD GENERATION (test code 2.080 UIU/ML = 2821) [id number] 00:00:00 Test Item Value Reference Range Interpretation Comments TSH, THIRD GENERATION (test code 2.080 UIU/ML = 2821) LIPID [id number] 00:00:00 Test Item Value Reference Range Interpretation Comments CHOLESTEROL (test code = 2210) 292 MG/DL TRIGLYCERIDES (test code = 2232) 184 MG/DL HDL CHOLESTEROL (test code = 2220) 51 MG/DL CALC LDL CHOL (test code = 2237) 205 MG/DL RISK RATIO LDL/HDL (test code = 4.02 RATIO 2238) LIPID [id number] 00:00:00 Test Item Value Reference Range Interpretation Comments CHOLESTEROL (test code = 2210) 292 MG/DL TRIGLYCERIDES (test code = 2232) 184 MG/DL HDL CHOLESTEROL (test code = 2220) 51 MG/DL CALC LDL CHOL (test code = 2237) 205 MG/DL RISK RATIO LDL/HDL (test code = 4.02 RATIO 2238) HEMOGLOBIN [id number] 00:00:00 Test Item Value Reference Range Interpretation Comments HEMOGLOBIN A1c (test code = 56648) 6.6 % HEMOGLOBIN [id number] 00:00:00 Test Item Value Reference Range Interpretation Comments HEMOGLOBIN A1c (test code = 95374) 6.6 % HEMOGLOBIN [id number] 00:00:00 Test Item Value Reference Range Interpretation Comments HEMOGLOBIN A1c (test code = 03240) 6.6 % HEMOGLOBIN [id number] 00:00:00 Test Item Value Reference Range Interpretation Comments HEMOGLOBIN A1c (test code = 54856) 6.8 % HEMOGLOBIN [id number] 00:00:00 Test Item Value Reference Range Interpretation Comments HEMOGLOBIN A1c (test code = 52481) 6.8 % HEMOGLOBIN [id number] 00:00:00 Test Item Value Reference Range Interpretation Comments HEMOGLOBIN A1c (test code = 29566) 6.8 % LIPID [id number] 00:00:00 Test Item Value Reference Range Interpretation Comments CHOLESTEROL (test code = 2210) 303 MG/DL TRIGLYCERIDES (test code = 2232) 191 MG/DL HDL CHOLESTEROL (test code = 2220) 61 MG/DL CALC LDL CHOL (test code = 2237) 205 MG/DL RISK RATIO LDL/HDL (test code = 3.36 RATIO 2238) LIPID [id number] 00:00:00 Test Item Value Reference Range Interpretation Comments CHOLESTEROL (test code = 2210) 303 MG/DL TRIGLYCERIDES (test code = 2232) 191 MG/DL HDL CHOLESTEROL (test code = 2220) 61 MG/DL CALC LDL CHOL (test code = 2237) 205 MG/DL RISK RATIO LDL/HDL (test code = 3.36 RATIO 2238) [id number] 00:00:00 Test Item Value Reference Range Interpretation Comments TSH, THIRD GENERATION (test code 0.769 UIU/ML = 2821) [id number] 00:00:00 Test Item Value Reference Range Interpretation Comments TSH, THIRD GENERATION (test code 0.769 UIU/ML = 2821) [id number] 00:00:00 Test Item Value Reference Range Interpretation Comments TSH, THIRD GENERATION (test code 0.769 UIU/ML = 2821) COMPREHENSIVE METABOLIC [id number] 00:00:00 Test Item Value Reference Range Interpretation Comments GLUCOSE (test code = 2217) 131 MG/DL BUN (test code = 2208) 13 MG/DL CREATININE (test code = 2214) 0.65 MG/DL eGFR AMER. (test code 113 ML/MIN/1.73 = 68372) eGFR NON- AMER. (test 97 ML/MIN/1.73 code = 69713) CALC BUN/CREAT (test code = 20 RATIO [...] code = 2219) 23 U/L COMPREHENSIVE METABOLIC [id number] 00:00:00 Test Item Value Reference Range Interpretation Comments GLUCOSE (test code = 2217) 131 MG/DL BUN (test code = 2208) 13 MG/DL CREATININE (test code = 2214) 0.65 MG/DL eGFR AMER. (test code 113 ML/MIN/1.73 = 28235) eGFR NON- AMER. (test 97 ML/MIN/1.73 code = 97473) CALC BUN/CREAT (test code = 20 RATIO [...] (test code = 2219) 23 U/L HEMOGLOBIN [id number] 00:00:00 Test Item Value Reference Range Interpretation Comments HEMOGLOBIN A1c (test code = 96739) 6.8 % HEMOGLOBIN [id number] 00:00:00 Test Item Value Reference Range Interpretation Comments HEMOGLOBIN A1c (test code = 46394) 6.8 % HEMOGLOBIN [id number] 00:00:00 Test Item Value Reference Range Interpretation Comments HEMOGLOBIN A1c (test code = 83995) 6.8 % LIPID [id number] 00:00:00 Test Item Value Reference Range Interpretation Comments CHOLESTEROL (test code = 2210) 303 MG/DL TRIGLYCERIDES (test code = 2232) 191 MG/DL HDL CHOLESTEROL (test code = 2220) 61 MG/DL CALC LDL CHOL (test code = 2237) 205 MG/DL RISK RATIO LDL/HDL (test code = 3.36 RATIO 2238) LIPID [id number] 00:00:00 Test Item Value Reference Range Interpretation Comments CHOLESTEROL (test code = 2210) 303 MG/DL TRIGLYCERIDES (test code = 2232) 191 MG/DL HDL CHOLESTEROL (test code = 2220) 61 MG/DL CALC LDL CHOL (test code = 2237) 205 MG/DL RISK RATIO LDL/HDL (test code = 3.36 RATIO 2238) [id number] 00:00:00 Test Item Value Reference Range Interpretation Comments TSH, THIRD GENERATION (test code 0.769 UIU/ML = 2821) [id number] 00:00:00 Test Item Value Reference Range Interpretation Comments TSH, THIRD GENERATION (test code 0.769 UIU/ML = 2821) [id number] 00:00:00 Test Item Value Reference Range Interpretation Comments TSH, THIRD GENERATION (test code 0.769 UIU/ML = 2821) COMPREHENSIVE METABOLIC [id number] 00:00:00 Test Item Value Reference Range Interpretation Comments GLUCOSE (test code = 2217) 131 MG/DL BUN (test code = 2208) 13 MG/DL CREATININE (test code = 2214) 0.65 MG/DL eGFR AMER. (test code 113 ML/MIN/1.73 = 10690) eGFR NON- AMER. (test 97 ML/MIN/1.73 code = 17511) CALC BUN/CREAT (test code = 20 RATIO [...] code = 2219) 23 U/L COMPREHENSIVE METABOLIC [id number] 00:00:00 Test Item Value Reference Range Interpretation Comments GLUCOSE (test code = 2217) 131 MG/DL BUN (test code = 2208) 13 MG/DL CREATININE (test code = 2214) 0.65 MG/DL eGFR AMER. (test code 113 ML/MIN/1.73 = 82714) eGFR NON- AMER. (test 97 ML/MIN/1.73 code = 23583) CALC BUN/CREAT (test code = 20 RATIO [...] (test code = 2219) 23 U/L HEMOGLOBIN [id number] 00:00:00 Test Item Value Reference Range Interpretation Comments HEMOGLOBIN A1c (test code = 74790) 6.8 % HEMOGLOBIN [id number] 00:00:00 Test Item Value Reference Range Interpretation Comments HEMOGLOBIN A1c (test code = 98405) 6.8 % LIPID [id number] 00:00:00 Test Item Value Reference Range Interpretation Comments CHOLESTEROL (test code = 2210) 303 MG/DL TRIGLYCERIDES (test code = 2232) 191 MG/DL HDL CHOLESTEROL (test code = 2220) 61 MG/DL CALC LDL CHOL (test code = 2237) 205 MG/DL RISK RATIO LDL/HDL (test code = 3.36 RATIO 2238) [id number] 00:00:00 Test Item Value Reference Range Interpretation Comments TSH, THIRD GENERATION (test code 0.769 UIU/ML = 2821) [id number] 00:00:00 Test Item Value Reference Range Interpretation Comments TSH, THIRD GENERATION (test code 0.769 UIU/ML = 2821) COMPREHENSIVE METABOLIC [id number] 00:00:00 Test Item Value Reference Range Interpretation Comments GLUCOSE (test code = 2217) 131 MG/DL BUN (test code = 2208) 13 MG/DL CREATININE (test code = 2214) 0.65 MG/DL eGFR AMER. (test code 113 ML/MIN/1.73 = 65444) eGFR NON- AMER. (test 97 ML/MIN/1.73 code = 73725) CALC BUN/CREAT (test code = 20 RATIO [...] (test code = 2219) 23 U/L HEMOGLOBIN [id number] 00:00:00 Test Item Value Reference Range Interpretation Comments HEMOGLOBIN A1c (test code = 84760) 6.8 % HEMOGLOBIN [id number] 00:00:00 Test Item Value Reference Range Interpretation Comments HEMOGLOBIN A1c (test code = 25246) 6.8 % HEMOGLOBIN [id number] 00:00:00 Test Item Value Reference Range Interpretation Comments HEMOGLOBIN A1c (test code = 48636) 6.8 % LIPID [id number] 00:00:00 Test Item Value Reference Range Interpretation Comments CHOLESTEROL (test code = 2210) 303 MG/DL TRIGLYCERIDES (test code = 2232) 191 MG/DL HDL CHOLESTEROL (test code = 2220) 61 MG/DL CALC LDL CHOL (test code = 2237) 205 MG/DL RISK RATIO LDL/HDL (test code = 3.36 RATIO 2238) LIPID [id number] 00:00:00 Test Item Value Reference Range Interpretation Comments CHOLESTEROL (test code = 2210) 303 MG/DL TRIGLYCERIDES (test code = 2232) 191 MG/DL HDL CHOLESTEROL (test code = 2220) 61 MG/DL CALC LDL CHOL (test code = 2237) 205 MG/DL RISK RATIO LDL/HDL (test code = 3.36 RATIO 2238) [id number] 00:00:00 Test Item Value Reference Range Interpretation Comments TSH, THIRD GENERATION (test code 0.769 UIU/ML = 2821) [id number] 00:00:00 Test Item Value Reference Range Interpretation Comments TSH, THIRD GENERATION (test code 0.769 UIU/ML = 2821) [id number] 00:00:00 Test Item Value Reference Range Interpretation Comments TSH, THIRD GENERATION (test code 0.769 UIU/ML = 2821) COMPREHENSIVE METABOLIC [id number] 00:00:00 Test Item Value Reference Range Interpretation Comments GLUCOSE (test code = 2217) 131 MG/DL BUN (test code = 2208) 13 MG/DL CREATININE (test code = 2214) 0.65 MG/DL eGFR AMER. (test code 113 ML/MIN/1.73 = 57630) eGFR NON- AMER. (test 97 ML/MIN/1.73 code = 64794) CALC BUN/CREAT (test code = 20 RATIO [...] code = 2219) 23 U/L COMPREHENSIVE METABOLIC [id number] 00:00:00 Test Item Value Reference Range Interpretation Comments GLUCOSE (test code = 2217) 131 MG/DL BUN (test code = 2208) 13 MG/DL CREATININE (test code = 2214) 0.65 MG/DL eGFR AMER. (test code 113 ML/MIN/1.73 = 13054) eGFR NON- AMER. (test 97 ML/MIN/1.73 code = 74244) CALC BUN/CREAT (test code = 20 RATIO [...] (test code = 2219) 23 U/L HEMOGLOBIN [id number] 00:00:00 Test Item Value Reference Range Interpretation Comments HEMOGLOBIN A1c (test code = 18334) 6.6 % HEMOGLOBIN [id number] 00:00:00 Test Item Value Reference Range Interpretation Comments HEMOGLOBIN A1c (test code = 37475) 6.6 % HEMOGLOBIN [id number] 00:00:00 Test Item Value Reference Range Interpretation Comments HEMOGLOBIN A1c (test code = 13072) 6.6 % LIPID [id number] 00:00:00 Test Item Value Reference Range Interpretation Comments CHOLESTEROL (test code = 2210) 261 MG/DL TRIGLYCERIDES (test code = 2232) 159 MG/DL HDL CHOLESTEROL (test code = 2220) 82 MG/DL CALC LDL CHOL (test code = 2237) 150 MG/DL RISK RATIO LDL/HDL (test code = 1.83 RATIO 2238) LIPID [id number] 00:00:00 Test Item Value Reference Range Interpretation Comments CHOLESTEROL (test code = 2210) 261 MG/DL TRIGLYCERIDES (test code = 2232) 159 MG/DL HDL CHOLESTEROL (test code = 2220) 82 MG/DL CALC LDL CHOL (test code = 2237) 150 MG/DL RISK RATIO LDL/HDL (test code = 1.83 RATIO 2238) COMPREHENSIVE METABOLIC [id number] 00:00:00 Test Item Value Reference Range Interpretation Comments GLUCOSE (test code = 2217) 144 MG/DL BUN (test code = 2208) 15 MG/DL CREATININE (test code = 2214) 0.85 MG/DL eGFR AMER. (test code 87 ML/MIN/1.73 = 21919) eGFR NON- AMER. (test 75 ML/MIN/1.73 code = 26612) CALC BUN/CREAT (test code = 18 RATIO [...] code = 2219) 50 U/L COMPREHENSIVE METABOLIC [id number] 00:00:00 Test Item Value Reference Range Interpretation Comments GLUCOSE (test code = 2217) 144 MG/DL BUN (test code = 2208) 15 MG/DL CREATININE (test code = 2214) 0.85 MG/DL eGFR AMER. (test code 87 ML/MIN/1.73 = 30714) eGFR NON- AMER. (test 75 ML/MIN/1.73 code = 66990) CALC BUN/CREAT (test code = 18 RATIO [...] THYROX. BIND. CAPAC. (test code 1.1 = 01007) T4 (THYROXINE) (test code = 4.3 UG/DL [...] (test 18.900 UIU/ML code = 2821) HEMOGLOBIN [id number] 00:00:00 Test Item Value Reference Range Interpretation Comments HEMOGLOBIN A1c (test code = 77274) 6.6 % HEMOGLOBIN [id number] 00:00:00 Test Item Value Reference Range Interpretation Comments HEMOGLOBIN A1c (test code = 01768) 6.6 % HEMOGLOBIN [id number] 00:00:00 Test Item Value Reference Range Interpretation Comments HEMOGLOBIN A1c (test code = 23933) 6.6 % LIPID [id number] 00:00:00 Test Item Value Reference Range Interpretation Comments CHOLESTEROL (test code = 2210) 261 MG/DL TRIGLYCERIDES (test code = 2232) 159 MG/DL HDL CHOLESTEROL (test code = 2220) 82 MG/DL CALC LDL CHOL (test code = 2237) 150 MG/DL RISK RATIO LDL/HDL (test code = 1.83 RATIO 2238) LIPID [id number] 00:00:00 Test Item Value Reference Range Interpretation Comments CHOLESTEROL (test code = 2210) 261 MG/DL TRIGLYCERIDES (test code = 2232) 159 MG/DL HDL CHOLESTEROL (test code = 2220) 82 MG/DL CALC LDL CHOL (test code = 2237) 150 MG/DL RISK RATIO LDL/HDL (test code = 1.83 RATIO 2238) COMPREHENSIVE METABOLIC [id number] 00:00:00 Test Item Value Reference Range Interpretation Comments GLUCOSE (test code = 2217) 144 MG/DL BUN (test code = 2208) 15 MG/DL CREATININE (test code = 2214) 0.85 MG/DL eGFR AMER. (test code 87 ML/MIN/1.73 = 14833) eGFR NON- AMER. (test 75 ML/MIN/1.73 code = 27769) CALC BUN/CREAT (test code = 18 RATIO [...] code = 2219) 50 U/L COMPREHENSIVE METABOLIC [id number] 00:00:00 Test Item Value Reference Range Interpretation Comments GLUCOSE (test code = 2217) 144 MG/DL BUN (test code = 2208) 15 MG/DL CREATININE (test code = 2214) 0.85 MG/DL eGFR AMER. (test code 87 ML/MIN/1.73 = 84647) eGFR NON- AMER. (test 75 ML/MIN/1.73 code = 12201) CALC BUN/CREAT (test code = 18 RATIO [...] THYROX. BIND. CAPAC. (test code 1.1 = 31068) T4 (THYROXINE) (test code = 4.3 UG/DL 2819) CORRECTED T4 (FTI) (test code = 3.9 UG/DL 2820) TSH, THIRD GENERATION (test 18.900 UIU/ML code = 2821) THYROID II PROFILE (T3U, T4, T7, TSH)[id number] 00:00:00 Test Item Value Reference Range Interpretation Comments T-UPTAKE (test code = 7) 30.2 % THYROX. BIND. CAPAC. (test code 1.1 = 17790) T4 (THYROXINE) (test code = 4.3 UG/DL 2819) CORRECTED T4 (FTI) (test code = 3.9 UG/DL 2820) TSH, THIRD GENERATION (test 18.900 UIU/ML code = 2821) HEMOGLOBIN [id number] 00:00:00 Test Item Value Reference Range Interpretation Comments HEMOGLOBIN A1c (test code = 12267) 6.6 % HEMOGLOBIN [id number] 00:00:00 Test Item Value Reference Range Interpretation Comments HEMOGLOBIN A1c (test code = 38644) 6.6 % LIPID [id number] 00:00:00 Test Item Value Reference Range Interpretation Comments CHOLESTEROL (test code = 2210) 261 MG/DL TRIGLYCERIDES (test code = 2232) 159 MG/DL HDL CHOLESTEROL (test code = 2220) 82 MG/DL CALC LDL CHOL (test code = 2237) 150 MG/DL RISK RATIO LDL/HDL (test code = 1.83 RATIO 2238) COMPREHENSIVE METABOLIC [id number] 00:00:00 Test Item Value Reference Range Interpretation Comments GLUCOSE (test code = 2217) 144 MG/DL BUN (test code = 2208) 15 MG/DL CREATININE (test code = 2214) 0.85 MG/DL eGFR AMER. (test code 87 ML/MIN/1.73 = 71636) eGFR NON- AMER. (test 75 ML/MIN/1.73 code = 56450) CALC BUN/CREAT (test code = 18 RATIO [...] THYROX. BIND. CAPAC. (test code 1.1 = 86905) T4 (THYROXINE) (test code = 4.3 UG/DL 2819) CORRECTED T4 (FTI) (test code = 3.9 UG/DL 2820) TSH, THIRD GENERATION (test 18.900 UIU/ML code = 2821) HEMOGLOBIN [id number] 00:00:00 Test Item Value Reference Range Interpretation Comments HEMOGLOBIN A1c (test code = 81905) 6.6 % HEMOGLOBIN [id number] 00:00:00 Test Item Value Reference Range Interpretation Comments HEMOGLOBIN A1c (test code = 59960) 6.6 % HEMOGLOBIN [id number] 00:00:00 Test Item Value Reference Range Interpretation Comments HEMOGLOBIN A1c (test code = 69772) 6.6 % LIPID [id number] 00:00:00 Test Item Value Reference Range Interpretation Comments CHOLESTEROL (test code = 2210) 261 MG/DL TRIGLYCERIDES (test code = 2232) 159 MG/DL HDL CHOLESTEROL (test code = 2220) 82 MG/DL CALC LDL CHOL (test code = 2237) 150 MG/DL RISK RATIO LDL/HDL (test code = 1.83 RATIO 2238) LIPID [id number] 00:00:00 Test Item Value Reference Range Interpretation Comments CHOLESTEROL (test code = 2210) 261 MG/DL TRIGLYCERIDES (test code = 2232) 159 MG/DL HDL CHOLESTEROL (test code = 2220) 82 MG/DL CALC LDL CHOL (test code = 2237) 150 MG/DL RISK RATIO LDL/HDL (test code = 1.83 RATIO 2238) COMPREHENSIVE METABOLIC [id number] 00:00:00 Test Item Value Reference Range Interpretation Comments GLUCOSE (test code = 2217) 144 MG/DL BUN (test code = 2208) 15 MG/DL CREATININE (test code = 2214) 0.85 MG/DL eGFR AMER. (test code 87 ML/MIN/1.73 = 43317) eGFR NON- AMER. (test 75 ML/MIN/1.73 code = 79063) CALC BUN/CREAT (test code = 18 RATIO [...] code = 2219) 50 U/L COMPREHENSIVE METABOLIC [id number] 00:00:00 Test Item Value Reference Range Interpretation Comments GLUCOSE (test code = 2217) 144 MG/DL BUN (test code = 2208) 15 MG/DL CREATININE (test code = 2214) 0.85 MG/DL eGFR AMER. (test code 87 ML/MIN/1.73 = 12537) eGFR NON- AMER. (test 75 ML/MIN/1.73 code = 71836) CALC BUN/CREAT (test code = 18 RATIO [...] THYROX. BIND. CAPAC. (test code 1.1 = 02350) T4 (THYROXINE) (test code = 4.3 UG/DL 2819) CORRECTED T4 (FTI) (test code = 3.9 UG/DL 2820) TSH, THIRD GENERATION (test 18.900 UIU/ML code = 2821) THYROID II PROFILE (T3U, T4, T7, TSH)[id number] 00:00:00 Test Item Value Reference Range Interpretation Comments T-UPTAKE (test code = 2817) 30.2 % THYROX. BIND. CAPAC. (test code 1.1 = 55433) T4 (THYROXINE) (test code = 4.3 UG/DL 2819) CORRECTED T4 (FTI) (test code = 3.9 UG/DL 2820) TSH, THIRD GENERATION (test 18.900 UIU/ML code = 2821) HEMOGLOBIN [id number] 00:00:00 Test Item Value Reference Range Interpretation Comments HEMOGLOBIN A1c (test code = 07588) 6.7 % HEMOGLOBIN [id number] 00:00:00 Test Item Value Reference Range Interpretation Comments HEMOGLOBIN A1c (test code = 59474) 6.7 % HEMOGLOBIN [id number] 00:00:00 Test Item Value Reference Range Interpretation Comments HEMOGLOBIN A1c (test code = 63424) 6.7 % LIPID [id number] 00:00:00 Test Item Value Reference Range Interpretation Comments CHOLESTEROL (test code = 2210) 267 MG/DL TRIGLYCERIDES (test code = 2232) 137 MG/DL HDL CHOLESTEROL (test code = 2220) 48 MG/DL CALC LDL CHOL (test code = 2237) 192 MG/DL RISK RATIO LDL/HDL (test code = 4.00 RATIO 2238) LIPID [id number] 00:00:00 Test Item Value Reference Range Interpretation Comments CHOLESTEROL (test code = 2210) 267 MG/DL TRIGLYCERIDES (test code = 2232) 137 MG/DL HDL CHOLESTEROL (test code = 2220) 48 MG/DL CALC LDL CHOL (test code = 2237) 192 MG/DL RISK RATIO LDL/HDL (test code = 4.00 RATIO 2238) COMPREHENSIVE METABOLIC [id number] 00:00:00 Test Item Value Reference Range Interpretation Comments GLUCOSE (test code = 2217) 155 MG/DL BUN (test code = 2208) 14 MG/DL CREATININE (test code = 2214) 0.52 MG/DL eGFR AMER. (test code 122 ML/MIN/1.73 = 99318) eGFR NON- AMER. (test 105 ML/MIN/1.73 code = 44985) CALC BUN/CREAT (test code = 27 RATIO [...] code = 2219) 27 U/L COMPREHENSIVE METABOLIC [id number] 00:00:00 Test Item Value Reference Range Interpretation Comments GLUCOSE (test code = 2217) 155 MG/DL BUN (test code = 2208) 14 MG/DL CREATININE (test code = 2214) 0.52 MG/DL eGFR AMER. (test code 122 ML/MIN/1.73 = 32667) eGFR NON- AMER. (test 105 ML/MIN/1.73 code = 04372) CALC BUN/CREAT (test code = 27 RATIO [...] THYROX. BIND. CAPAC. (test code 1.0 = 94869) T4 (THYROXINE) (test code = 4.7 UG/DL 2819) CORRECTED T4 (FTI) (test code = 4.7 UG/DL 2820) TSH, THIRD GENERATION (test code 0.201 UIU/ML = 2821) THYROID II PROFILE (T3U, T4, T7, TSH)2019 00:00:00 Test Item Value Reference Range Interpretation Comments T-UPTAKE (test code = 2817) 33.1 % THYROX. BIND. CAPAC. (test code 1.0 = 71268) T4 (THYROXINE) (test code = 4.7 UG/DL 2819) CORRECTED T4 (FTI) (test code = 4.7 UG/DL 2820) TSH, THIRD GENERATION (test code 0.201 UIU/ML = 2821) HEMOGLOBIN [id number] 00:00:00 Test Item Value Reference Range Interpretation Comments HEMOGLOBIN A1c (test code = 70186) 6.7 % HEMOGLOBIN [id number] 00:00:00 Test Item Value Reference Range Interpretation Comments HEMOGLOBIN A1c (test code = 41946) 6.7 % HEMOGLOBIN [id number] 00:00:00 Test Item Value Reference Range Interpretation Comments HEMOGLOBIN A1c (test code = 11946) 6.7 % LIPID [id number] 00:00:00 Test Item Value Reference Range Interpretation Comments CHOLESTEROL (test code = 2210) 267 MG/DL TRIGLYCERIDES (test code = 2232) 137 MG/DL HDL CHOLESTEROL (test code = 2220) 48 MG/DL CALC LDL CHOL (test code = 2237) 192 MG/DL RISK RATIO LDL/HDL (test code = 4.00 RATIO 2238) LIPID [id number] 00:00:00 Test Item Value Reference Range Interpretation Comments CHOLESTEROL (test code = 2210) 267 MG/DL TRIGLYCERIDES (test code = 2232) 137 MG/DL HDL CHOLESTEROL (test code = 2220) 48 MG/DL CALC LDL CHOL (test code = 2237) 192 MG/DL RISK RATIO LDL/HDL (test code = 4.00 RATIO 2238) COMPREHENSIVE METABOLIC [id number] 00:00:00 Test Item Value Reference Range Interpretation Comments GLUCOSE (test code = 2217) 155 MG/DL BUN (test code = 2208) 14 MG/DL CREATININE (test code = 2214) 0.52 MG/DL eGFR AMER. (test code 122 ML/MIN/1.73 = 66422) eGFR NON- AMER. (test 105 ML/MIN/1.73 code = 88752) CALC BUN/CREAT (test code = 27 RATIO [...] code = 2219) 27 U/L COMPREHENSIVE METABOLIC [id number] 00:00:00 Test Item Value Reference Range Interpretation Comments GLUCOSE (test code = 2217) 155 MG/DL BUN (test code = 2208) 14 MG/DL CREATININE (test code = 2214) 0.52 MG/DL eGFR AMER. (test code 122 ML/MIN/1.73 = 22769) eGFR NON- AMER. (test 105 ML/MIN/1.73 code = 74051) CALC BUN/CREAT (test code = 27 RATIO [...] THYROX. BIND. CAPAC. (test code 1.0 = 99681) T4 (THYROXINE) (test code = 4.7 UG/DL 2819) CORRECTED T4 (FTI) (test code = 4.7 UG/DL 2820) TSH, THIRD GENERATION (test code 0.201 UIU/ML = 2821) THYROID II PROFILE (T3U, T4, T7, TSH)2019 00:00:00 Test Item Value Reference Range Interpretation Comments T-UPTAKE (test code = 7) 33.1 % THYROX. BIND. CAPAC. (test code 1.0 = 50266) T4 (THYROXINE) (test code = 4.7 UG/DL 2819) CORRECTED T4 (FTI) (test code = 4.7 UG/DL 2820) TSH, THIRD GENERATION (test code 0.201 UIU/ML = 2821) HEMOGLOBIN [id number] 00:00:00 Test Item Value Reference Range Interpretation Comments HEMOGLOBIN A1c (test code = 62834) 6.7 % HEMOGLOBIN [id number] 00:00:00 Test Item Value Reference Range Interpretation Comments HEMOGLOBIN A1c (test code = 52271) 6.7 % LIPID [id number] 00:00:00 Test Item Value Reference Range Interpretation Comments CHOLESTEROL (test code = 2210) 267 MG/DL TRIGLYCERIDES (test code = 2232) 137 MG/DL HDL CHOLESTEROL (test code = 2220) 48 MG/DL CALC LDL CHOL (test code = 2237) 192 MG/DL RISK RATIO LDL/HDL (test code = 4.00 RATIO 2238) COMPREHENSIVE METABOLIC [id number] 00:00:00 Test Item Value Reference Range Interpretation Comments GLUCOSE (test code = 2217) 155 MG/DL BUN (test code = 2208) 14 MG/DL CREATININE (test code = 2214) 0.52 MG/DL eGFR AMER. (test code 122 ML/MIN/1.73 = 68687) eGFR NON- AMER. (test 105 ML/MIN/1.73 code = 09423) CALC BUN/CREAT (test code = 27 RATIO [...] THYROX. BIND. CAPAC. (test code 1.0 = 36534) T4 (THYROXINE) (test code = 4.7 UG/DL 2819) CORRECTED T4 (FTI) (test code = 4.7 UG/DL 2820) TSH, THIRD GENERATION (test code 0.201 UIU/ML = 2821) HEMOGLOBIN [id number] 00:00:00 Test Item Value Reference Range Interpretation Comments HEMOGLOBIN A1c (test code = 28246) 6.7 % HEMOGLOBIN [id number] 00:00:00 Test Item Value Reference Range Interpretation Comments HEMOGLOBIN A1c (test code = 64921) 6.7 % HEMOGLOBIN [id number] 00:00:00 Test Item Value Reference Range Interpretation Comments HEMOGLOBIN A1c (test code = 18132) 6.7 % LIPID [id number] 00:00:00 Test Item Value Reference Range Interpretation Comments CHOLESTEROL (test code = 2210) 267 MG/DL TRIGLYCERIDES (test code = 2232) 137 MG/DL HDL CHOLESTEROL (test code = 2220) 48 MG/DL CALC LDL CHOL (test code = 2237) 192 MG/DL RISK RATIO LDL/HDL (test code = 4.00 RATIO 2238) LIPID [id number] 00:00:00 Test Item Value Reference Range Interpretation Comments CHOLESTEROL (test code = 2210) 267 MG/DL TRIGLYCERIDES (test code = 2232) 137 MG/DL HDL CHOLESTEROL (test code = 2220) 48 MG/DL CALC LDL CHOL (test code = 2237) 192 MG/DL RISK RATIO LDL/HDL (test code = 4.00 RATIO 2238) COMPREHENSIVE METABOLIC [id number] 00:00:00 Test Item Value Reference Range Interpretation Comments GLUCOSE (test code = 2217) 155 MG/DL BUN (test code = 2208) 14 MG/DL CREATININE (test code = 2214) 0.52 MG/DL eGFR AMER. (test code 122 ML/MIN/1.73 = 65604) eGFR NON- AMER. (test 105 ML/MIN/1.73 code = 71946) CALC BUN/CREAT (test code = 27 RATIO [...] code = 2219) 27 U/L COMPREHENSIVE METABOLIC [id number] 00:00:00 Test Item Value Reference Range Interpretation Comments GLUCOSE (test code = 2217) 155 MG/DL BUN (test code = 2208) 14 MG/DL CREATININE (test code = 2214) 0.52 MG/DL eGFR AMER. (test code 122 ML/MIN/1.73 = 66186) eGFR NON- AMER. (test 105 ML/MIN/1.73 code = 51376) CALC BUN/CREAT (test code = 27 RATIO [...] THYROX. BIND. CAPAC. (test code 1.0 = 18008) T4 (THYROXINE) (test code = 4.7 UG/DL 2819) CORRECTED T4 (FTI) (test code = 4.7 UG/DL 2820) TSH, THIRD GENERATION (test code 0.201 UIU/ML = 2821) THYROID II PROFILE (T3U, T4, T7, TSH)2019 00:00:00 Test Item Value Reference Range Interpretation Comments T-UPTAKE (test code = 7) 33.1 % THYROX. BIND. CAPAC. (test code 1.0 = 02520) T4 (THYROXINE) (test code = 4.7 UG/DL 2819) CORRECTED T4 (FTI) (test code = 4.7 UG/DL 2820) TSH, THIRD GENERATION (test code 0.201 UIU/ML = 2821) SARS-CoV-2 (COVID-19) by RT-PCR (HIGH RISK)2019-09-18 00:00:00 Test Item Value Reference Range Interpretation Comments SARS-CoV-2 INTERPRETATION (test NEGATIVE code = 65816) SOURCE (test code = 40750) NOT SPECIFIED SARS-CoV-2 (COVID-19) by RT-PCR (HIGH RISK)2019-09-18 00:00:00 Test Item Value Reference Range Interpretation Comments SARS-CoV-2 INTERPRETATION (test NEGATIVE code = 94685) SOURCE (test code = 36122) NOT SPECIFIED SARS-CoV-2 (COVID-19) by RT-PCR (HIGH RISK)2019-09-18 00:00:00 Test Item Value Reference Range Interpretation Comments SARS-CoV-2 INTERPRETATION (test NEGATIVE code = 51637) SOURCE (test code = 32983) NOT SPECIFIED SARS-CoV-2 (COVID-19) by RT-PCR (HIGH RISK)2019-09-18 00:00:00 Test Item Value Reference Range Interpretation Comments SARS-CoV-2 INTERPRETATION (test NEGATIVE code = 87512) SOURCE (test code = 11184) NOT SPECIFIED SARS-CoV-2 (COVID-19) by RT-PCR (HIGH RISK)2019-09-18 00:00:00 Test Item Value Reference Range Interpretation Comments SARS-CoV-2 INTERPRETATION (test NEGATIVE code = 00457) SOURCE (test code = 13038) NOT SPECIFIED SARS-CoV-2 (COVID-19) by RT-PCR (HIGH RISK)2019-09-18 00:00:00 Test Item Value Reference Range Interpretation Comments SARS-CoV-2 INTERPRETATION (test NEGATIVE code = 91934) SOURCE (test code = 42851) NOT SPECIFIED SARS-CoV-2 (COVID-19) by RT-PCR (HIGH RISK)2019-09-18 00:00:00 Test Item Value Reference Range Interpretation Comments SARS-CoV-2 INTERPRETATION (test NEGATIVE code = 01444) SOURCE (test code = 16825) NOT SPECIFIED [id number] 00:00:00 Test Item Value Reference Range Interpretation Comments TSH, THIRD GENERATION (test code 2.490 UIU/ML = 2821) [id number] 00:00:00 Test Item Value Reference Range Interpretation Comments TSH, THIRD GENERATION (test code 2.490 UIU/ML = 2821) [id number] 00:00:00 Test Item Value Reference Range Interpretation Comments TSH, THIRD GENERATION (test code 2.490 UIU/ML = 2821) HEMOGLOBIN [id number] 00:00:00 Test Item Value Reference Range Interpretation Comments HEMOGLOBIN A1c (test code = 70437) 6.4 % HEMOGLOBIN [id number] 00:00:00 Test Item Value Reference Range Interpretation Comments HEMOGLOBIN A1c (test code = 66025) 6.4 % HEMOGLOBIN [id number] 00:00:00 Test Item Value Reference Range Interpretation Comments HEMOGLOBIN A1c (test code = 81896) 6.4 % COMPREHENSIVE METABOLIC [id number] 00:00:00 Test Item Value Reference Range Interpretation Comments GLUCOSE (test code = 2217) 206 MG/DL BUN (test code = 2208) 23 MG/DL CREATININE (test code = 2214) 0.67 MG/DL eGFR AMER. (test code 112 ML/MIN/1.73 = 72619) eGFR NON- AMER. (test 97 ML/MIN/1.73 code = 96250) CALC BUN/CREAT (test code = 34 RATIO [...] code = 2219) 25 U/L COMPREHENSIVE METABOLIC [id number] 00:00:00 Test Item Value Reference Range Interpretation Comments GLUCOSE (test code = 2217) 206 MG/DL BUN (test code = 2208) 23 MG/DL CREATININE (test code = 2214) 0.67 MG/DL eGFR AMER. (test code 112 ML/MIN/1.73 = 91138) eGFR NON- AMER. (test 97 ML/MIN/1.73 code = 28236) CALC BUN/CREAT (test code = 34 RATIO [...] ALT (test code = 2219) 25 U/L [id number] 00:00:00 Test Item Value Reference Range Interpretation Comments TSH, THIRD GENERATION (test code 2.490 UIU/ML = 2821) [id number] 00:00:00 Test Item Value Reference Range Interpretation Comments TSH, THIRD GENERATION (test code 2.490 UIU/ML = 2821) [id number] 00:00:00 Test Item Value Reference Range Interpretation Comments TSH, THIRD GENERATION (test code 2.490 UIU/ML = 2821) HEMOGLOBIN [id number] 00:00:00 Test Item Value Reference Range Interpretation Comments HEMOGLOBIN A1c (test code = 17945) 6.4 % HEMOGLOBIN [id number] 00:00:00 Test Item Value Reference Range Interpretation Comments HEMOGLOBIN A1c (test code = 34517) 6.4 % HEMOGLOBIN [id number] 00:00:00 Test Item Value Reference Range Interpretation Comments HEMOGLOBIN A1c (test code = 02189) 6.4 % COMPREHENSIVE METABOLIC [id number] 00:00:00 Test Item Value Reference Range Interpretation Comments GLUCOSE (test code = 2217) 206 MG/DL BUN (test code = 2208) 23 MG/DL CREATININE (test code = 2214) 0.67 MG/DL eGFR AMER. (test code 112 ML/MIN/1.73 = 18305) eGFR NON- AMER. (test 97 ML/MIN/1.73 code = 48803) CALC BUN/CREAT (test code = 34 RATIO [...] code = 2219) 25 U/L COMPREHENSIVE METABOLIC [id number] 00:00:00 Test Item Value Reference Range Interpretation Comments GLUCOSE (test code = 2217) 206 MG/DL BUN (test code = 2208) 23 MG/DL CREATININE (test code = 2214) 0.67 MG/DL eGFR AMER. (test code 112 ML/MIN/1.73 = 50136) eGFR NON- AMER. (test 97 ML/MIN/1.73 code = 36368) CALC BUN/CREAT (test code = 34 RATIO [...] ALT (test code = 2219) 25 U/L [id number] 00:00:00 Test Item Value Reference Range Interpretation Comments TSH, THIRD GENERATION (test code 2.490 UIU/ML = 2821) [id number] 00:00:00 Test Item Value Reference Range Interpretation Comments TSH, THIRD GENERATION (test code 2.490 UIU/ML = 2821) HEMOGLOBIN [id number] 00:00:00 Test Item Value Reference Range Interpretation Comments HEMOGLOBIN A1c (test code = 57936) 6.4 % HEMOGLOBIN [id number] 00:00:00 Test Item Value Reference Range Interpretation Comments HEMOGLOBIN A1c (test code = 81425) 6.4 % COMPREHENSIVE METABOLIC [id number] 00:00:00 Test Item Value Reference Range Interpretation Comments GLUCOSE (test code = 2217) 206 MG/DL BUN (test code = 2208) 23 MG/DL CREATININE (test code = 2214) 0.67 MG/DL eGFR AMER. (test code 112 ML/MIN/1.73 = 49710) eGFR NON- AMER. (test 97 ML/MIN/1.73 code = 60673) CALC BUN/CREAT (test code = 34 RATIO [...] ALT (test code = 2219) 25 U/L [id number] 00:00:00 Test Item Value Reference Range Interpretation Comments TSH, THIRD GENERATION (test code 2.490 UIU/ML = 2821) [id number] 00:00:00 Test Item Value Reference Range Interpretation Comments TSH, THIRD GENERATION (test code 2.490 UIU/ML = 2821) [id number] 00:00:00 Test Item Value Reference Range Interpretation Comments TSH, THIRD GENERATION (test code 2.490 UIU/ML = 2821) HEMOGLOBIN [id number] 00:00:00 Test Item Value Reference Range Interpretation Comments HEMOGLOBIN A1c (test code = 79462) 6.4 % HEMOGLOBIN [id number] 00:00:00 Test Item Value Reference Range Interpretation Comments HEMOGLOBIN A1c (test code = 10308) 6.4 % HEMOGLOBIN [id number] 00:00:00 Test Item Value Reference Range Interpretation Comments HEMOGLOBIN A1c (test code = 90542) 6.4 % COMPREHENSIVE METABOLIC [id number] 00:00:00 Test Item Value Reference Range Interpretation Comments GLUCOSE (test code = 2217) 206 MG/DL BUN (test code = 2208) 23 MG/DL CREATININE (test code = 2214) 0.67 MG/DL eGFR AMER. (test code 112 ML/MIN/1.73 = 87154) eGFR NON- AMER. (test 97 ML/MIN/1.73 code = 77846) CALC BUN/CREAT (test code = 34 RATIO [...] code = 2219) 25 U/L COMPREHENSIVE METABOLIC [id number] 00:00:00 Test Item Value Reference Range Interpretation Comments GLUCOSE (test code = 2217) 206 MG/DL BUN (test code = 2208) 23 MG/DL CREATININE (test code = 2214) 0.67 MG/DL eGFR AMER. (test code 112 ML/MIN/1.73 = 99102) eGFR NON- AMER. (test 97 ML/MIN/1.73 code = 77885) CALC BUN/CREAT (test code = 34 RATIO [...] = 2219) 25 U/L VAGINAL PATHOGENS DNA [id number] 00:00:00 Test Item Value Reference Range Interpretation Comments MARK SPECIES (test code = ) NEGATIVE G. VAGINALIS (test code = 34136) NEGATIVE T. VAGINALIS (test code = 00992) NEGATIVE VAGINAL PATHOGENS DNA [id number] 00:00:00 Test Item Value Reference Range Interpretation Comments MARK SPECIES (test code = 23462) NEGATIVE G. VAGINALIS (test code = 90821) NEGATIVE T. VAGINALIS (test code = 45214) NEGATIVE VAGINAL PATHOGENS DNA [id number] 00:00:00 Test Item Value Reference Range Interpretation Comments MARK SPECIES (test code = 92812) NEGATIVE G. VAGINALIS (test code = 29928) NEGATIVE T. VAGINALIS (test code = 90010) NEGATIVE VAGINAL PATHOGENS DNA [id number] 00:00:00 Test Item Value Reference Range Interpretation Comments MARK SPECIES (test code = 46893) NEGATIVE G. VAGINALIS (test code = 86357) NEGATIVE T. VAGINALIS (test code = 13249) NEGATIVE VAGINAL PATHOGENS DNA [id number] 00:00:00 Test Item Value Reference Range Interpretation Comments MARK SPECIES (test code = 21431) NEGATIVE G. VAGINALIS (test code = 59915) NEGATIVE T. VAGINALIS (test code = 67972) NEGATIVE VAGINAL PATHOGENS DNA [id number] 00:00:00 Test Item Value Reference Range Interpretation Comments MARK SPECIES (test code = 99104) NEGATIVE G. VAGINALIS (test code = 61951) NEGATIVE T. VAGINALIS (test code = 67092) NEGATIVE VAGINAL PATHOGENS DNA [id number] 00:00:00 Test Item Value Reference Range Interpretation Comments MARK SPECIES (test code = ) NEGATIVE G. VAGINALIS (test code = 01101) NEGATIVE T. VAGINALIS (test code = 10016) NEGATIVE HEMOGLOBIN A1c [ADDED]2018-12-01 00:00:00 Test Item Value Reference Range Interpretation Comments HEMOGLOBIN A1c (test code = 70011) 6.7 % HEMOGLOBIN A1c [ADDED]2018-12-01 00:00:00 Test Item Value Reference Range Interpretation Comments HEMOGLOBIN A1c (test code = 38963) 6.7 % HEMOGLOBIN A1c [ADDED]2018-12-01 00:00:00 Test Item Value Reference Range Interpretation Comments HEMOGLOBIN A1c (test code = 83670) 6.7 % COMPREHENSIVE METABOLIC PANEL [ADDED]2018-12-01 00:00:00 Test Item Value Reference Range Interpretation Comments GLUCOSE (test code = 2217) 136 MG/DL BUN (test code = 2208) 15 MG/DL CREATININE (test code = 2214) 0.64 MG/DL eGFR AMER. (test code 115 ML/MIN/1.73 = 57783) eGFR NON- AMER. (test 99 ML/MIN/1.73 code = 08266) CALC BUN/CREAT (test code = 23 RATIO [...] eGFR AMER. (test code 115 ML/MIN/1.73 = 58384) eGFR NON- AMER. (test 99 ML/MIN/1.73 code = 21804) CALC BUN/CREAT (test code = 23 RATIO [...] Interpretation Comments HEMOGLOBIN A1c (test code = 73722) 6.7 % HEMOGLOBIN A1c [ADDED]2018-12-01 00:00:00 Test Item Value Reference Range Interpretation Comments HEMOGLOBIN A1c (test code = 97744) 6.7 % HEMOGLOBIN A1c [ADDED]2018-12-01 00:00:00 Test Item Value Reference Range Interpretation Comments HEMOGLOBIN A1c (test code = 75580) 6.7 % COMPREHENSIVE METABOLIC PANEL [ADDED]2018-12-01 00:00:00 Test Item Value Reference Range Interpretation Comments GLUCOSE (test code = 2217) 136 MG/DL BUN (test code = 2208) 15 MG/DL CREATININE (test code = 2214) 0.64 MG/DL eGFR AMER. (test code 115 ML/MIN/1.73 = 43141) eGFR NON- AMER. (test 99 ML/MIN/1.73 code = 32228) CALC BUN/CREAT (test code = 23 RATIO [...] eGFR AMER. (test code 115 ML/MIN/1.73 = 16806) eGFR NON- AMER. (test 99 ML/MIN/1.73 code = 23434) CALC BUN/CREAT (test code = 23 RATIO [...] Interpretation Comments HEMOGLOBIN A1c (test code = 84219) 6.7 % HEMOGLOBIN A1c [ADDED]2018-12-01 00:00:00 Test Item Value Reference Range Interpretation Comments HEMOGLOBIN A1c (test code = 60292) 6.7 % COMPREHENSIVE METABOLIC PANEL [ADDED]2018-12-01 00:00:00 Test Item Value Reference Range Interpretation Comments GLUCOSE (test code = 2217) 136 MG/DL BUN (test code = 2208) 15 MG/DL CREATININE (test code = 2214) 0.64 MG/DL eGFR AMER. (test code 115 ML/MIN/1.73 = 88431) eGFR NON- AMER. (test 99 ML/MIN/1.73 code = 69517) CALC BUN/CREAT (test code = 23 RATIO [...] Interpretation Comments HEMOGLOBIN A1c (test code = 06173) 6.7 % HEMOGLOBIN A1c [ADDED]2018-12-01 00:00:00 Test Item Value Reference Range Interpretation Comments HEMOGLOBIN A1c (test code = 85765) 6.7 % HEMOGLOBIN A1c [ADDED]2018-12-01 00:00:00 Test Item Value Reference Range Interpretation Comments HEMOGLOBIN A1c (test code = 08113) 6.7 % COMPREHENSIVE METABOLIC PANEL [ADDED]2018-12-01 00:00:00 Test Item Value Reference Range Interpretation Comments GLUCOSE (test code = 2217) 136 MG/DL BUN (test code = 2208) 15 MG/DL CREATININE (test code = 2214) 0.64 MG/DL eGFR AMER. (test code 115 ML/MIN/1.73 = 52295) eGFR NON- AMER. (test 99 ML/MIN/1.73 code = 31680) CALC BUN/CREAT (test code = 23 RATIO [...] eGFR AMER. (test code 115 ML/MIN/1.73 = 21093) eGFR NON- AMER. (test 99 ML/MIN/1.73 code = 54603) CALC BUN/CREAT (test code = 23 RATIO [...] code 1.280 UIU/ML = 2821) CBC W/AUTO [id number] 00:00:00 Test Item Value Reference Range Interpretation [...] code = 1015) 346 K/UL CBC W/AUTO [id number] 00:00:00 Test Item Value Reference Range Interpretation [...] code = 1015) 346 K/UL CBC W/AUTO [id number] 00:00:00 Test Item Value Reference Range Interpretation [...] (test code = 1015) 346 K/UL HEMOGLOBIN [id number] 00:00:00 Test Item Value Reference Range Interpretation Comments HEMOGLOBIN A1c (test code = 41546) 5.9 % HEMOGLOBIN [id number] 00:00:00 Test Item Value Reference Range Interpretation Comments HEMOGLOBIN A1c (test code = 53888) 5.9 % HEMOGLOBIN [id number] 00:00:00 Test Item Value Reference Range Interpretation Comments HEMOGLOBIN A1c (test code = 08176) 5.9 % LIPID [id number] 00:00:00 Test Item Value Reference Range Interpretation Comments CHOLESTEROL (test code = 2210) 318 MG/DL TRIGLYCERIDES (test code = 2232) 263 MG/DL HDL CHOLESTEROL (test code = 2220) 51 MG/DL CALC LDL CHOL (test code = 2237) 214 MG/DL RISK RATIO LDL/HDL (test code = 4.20 RATIO 2238) LIPID [id number] 00:00:00 Test Item Value Reference Range Interpretation Comments CHOLESTEROL (test code = 2210) 318 MG/DL TRIGLYCERIDES (test code = 2232) 263 MG/DL HDL CHOLESTEROL (test code = 2220) 51 MG/DL CALC LDL CHOL (test code = 2237) 214 MG/DL RISK RATIO LDL/HDL (test code = 4.20 RATIO 2238) COMPREHENSIVE METABOLIC [id number] 00:00:00 Test Item Value Reference Range Interpretation Comments GLUCOSE (test code = 2217) 113 MG/DL BUN (test code = 2208) 18 MG/DL CREATININE (test code = 2214) 0.70 MG/DL eGFR AMER. (test code 111 ML/MIN/1.73 = 08966) eGFR NON- AMER. (test 96 ML/MIN/1.73 code = 33093) CALC BUN/CREAT (test code = 26 RATIO [...] code = 2219) 31 U/L COMPREHENSIVE METABOLIC [id number] 00:00:00 Test Item Value Reference Range Interpretation Comments GLUCOSE (test code = 2217) 113 MG/DL BUN (test code = 2208) 18 MG/DL CREATININE (test code = 2214) 0.70 MG/DL eGFR AMER. (test code 111 ML/MIN/1.73 = 02125) eGFR NON- AMER. (test 96 ML/MIN/1.73 code = 56250) CALC BUN/CREAT (test code = 26 RATIO [...] ALT (test code = 2219) 31 U/L [id number] 00:00:00 Test Item Value Reference Range Interpretation Comments TSH, THIRD GENERATION (test code 2.520 UIU/ML = 2821) [id number] 00:00:00 Test Item Value Reference Range Interpretation Comments TSH, THIRD GENERATION (test code 2.520 UIU/ML = 2821) [id number] 00:00:00 Test Item Value Reference Range Interpretation Comments TSH, THIRD GENERATION (test code 2.520 UIU/ML = 2821) CBC W/AUTO [id number] 00:00:00 Test Item Value Reference Range Interpretation [...] code = 1015) 346 K/UL CBC W/AUTO [id number] 00:00:00 Test Item Value Reference Range Interpretation [...] code = 1015) 346 K/UL CBC W/AUTO [id number] 00:00:00 Test Item Value Reference Range Interpretation [...] (test code = 1015) 346 K/UL HEMOGLOBIN [id number] 00:00:00 Test Item Value Reference Range Interpretation Comments HEMOGLOBIN A1c (test code = 94135) 5.9 % HEMOGLOBIN [id number] 00:00:00 Test Item Value Reference Range Interpretation Comments HEMOGLOBIN A1c (test code = 78769) 5.9 % HEMOGLOBIN [id number] 00:00:00 Test Item Value Reference Range Interpretation Comments HEMOGLOBIN A1c (test code = 62720) 5.9 % LIPID [id number] 00:00:00 Test Item Value Reference Range Interpretation Comments CHOLESTEROL (test code = 2210) 318 MG/DL TRIGLYCERIDES (test code = 2232) 263 MG/DL HDL CHOLESTEROL (test code = 2220) 51 MG/DL CALC LDL CHOL (test code = 2237) 214 MG/DL RISK RATIO LDL/HDL (test code = 4.20 RATIO 2238) LIPID [id number] 00:00:00 Test Item Value Reference Range Interpretation Comments CHOLESTEROL (test code = 2210) 318 MG/DL TRIGLYCERIDES (test code = 2232) 263 MG/DL HDL CHOLESTEROL (test code = 2220) 51 MG/DL CALC LDL CHOL (test code = 2237) 214 MG/DL RISK RATIO LDL/HDL (test code = 4.20 RATIO 2238) COMPREHENSIVE METABOLIC [id number] 00:00:00 Test Item Value Reference Range Interpretation Comments GLUCOSE (test code = 2217) 113 MG/DL BUN (test code = 2208) 18 MG/DL CREATININE (test code = 2214) 0.70 MG/DL eGFR AMER. (test code 111 ML/MIN/1.73 = 86128) eGFR NON- AMER. (test 96 ML/MIN/1.73 code = 21618) CALC BUN/CREAT (test code = 26 RATIO [...] code = 2219) 31 U/L COMPREHENSIVE METABOLIC [id number] 00:00:00 Test Item Value Reference Range Interpretation Comments GLUCOSE (test code = 2217) 113 MG/DL BUN (test code = 2208) 18 MG/DL CREATININE (test code = 2214) 0.70 MG/DL eGFR AMER. (test code 111 ML/MIN/1.73 = 42591) eGFR NON- AMER. (test 96 ML/MIN/1.73 code = 83918) CALC BUN/CREAT (test code = 26 RATIO [...] ALT (test code = 2219) 31 U/L [id number] 00:00:00 Test Item Value Reference Range Interpretation Comments TSH, THIRD GENERATION (test code 2.520 UIU/ML = 2821) [id number] 00:00:00 Test Item Value Reference Range Interpretation Comments TSH, THIRD GENERATION (test code 2.520 UIU/ML = 2821) [id number] 00:00:00 Test Item Value Reference Range Interpretation Comments TSH, THIRD GENERATION (test code 2.520 UIU/ML = 2821) CBC W/AUTO [id number] 00:00:00 Test Item Value Reference Range Interpretation [...] code = 1015) 346 K/UL CBC W/AUTO [id number] 00:00:00 Test Item Value Reference Range Interpretation [...] (test code = 1015) 346 K/UL HEMOGLOBIN [id number] 00:00:00 Test Item Value Reference Range Interpretation Comments HEMOGLOBIN A1c (test code = 23254) 5.9 % HEMOGLOBIN [id number] 00:00:00 Test Item Value Reference Range Interpretation Comments HEMOGLOBIN A1c (test code = 81625) 5.9 % LIPID [id number] 00:00:00 Test Item Value Reference Range Interpretation Comments CHOLESTEROL (test code = 2210) 318 MG/DL TRIGLYCERIDES (test code = 2232) 263 MG/DL HDL CHOLESTEROL (test code = 2220) 51 MG/DL CALC LDL CHOL (test code = 2237) 214 MG/DL RISK RATIO LDL/HDL (test code = 4.20 RATIO 2238) COMPREHENSIVE METABOLIC [id number] 00:00:00 Test Item Value Reference Range Interpretation Comments GLUCOSE (test code = 2217) 113 MG/DL BUN (test code = 2208) 18 MG/DL CREATININE (test code = 2214) 0.70 MG/DL eGFR AMER. (test code 111 ML/MIN/1.73 = 09138) eGFR NON- AMER. (test 96 ML/MIN/1.73 code = 38621) CALC BUN/CREAT (test code = 26 RATIO [...] ALT (test code = 2219) 31 U/L [id number] 00:00:00 Test Item Value Reference Range Interpretation Comments TSH, THIRD GENERATION (test code 2.520 UIU/ML = 2821) [id number] 00:00:00 Test Item Value Reference Range Interpretation Comments TSH, THIRD GENERATION (test code 2.520 UIU/ML = 2821) CBC W/AUTO [id number] 00:00:00 Test Item Value Reference Range Interpretation [...] code = 1015) 346 K/UL CBC W/AUTO [id number] 00:00:00 Test Item Value Reference Range Interpretation [...] code = 1015) 346 K/UL CBC W/AUTO [id number] 00:00:00 Test Item Value Reference Range Interpretation [...] (test code = 1015) 346 K/UL HEMOGLOBIN [id number] 00:00:00 Test Item Value Reference Range Interpretation Comments HEMOGLOBIN A1c (test code = 83573) 5.9 % HEMOGLOBIN [id number] 00:00:00 Test Item Value Reference Range Interpretation Comments HEMOGLOBIN A1c (test code = 29533) 5.9 % HEMOGLOBIN [id number] 00:00:00 Test Item Value Reference Range Interpretation Comments HEMOGLOBIN A1c (test code = 07102) 5.9 % LIPID [id number] 00:00:00 Test Item Value Reference Range Interpretation Comments CHOLESTEROL (test code = 2210) 318 MG/DL TRIGLYCERIDES (test code = 2232) 263 MG/DL HDL CHOLESTEROL (test code = 2220) 51 MG/DL CALC LDL CHOL (test code = 2237) 214 MG/DL RISK RATIO LDL/HDL (test code = 4.20 RATIO 2238) LIPID [id number] 00:00:00 Test Item Value Reference Range Interpretation Comments CHOLESTEROL (test code = 2210) 318 MG/DL TRIGLYCERIDES (test code = 2232) 263 MG/DL HDL CHOLESTEROL (test code = 2220) 51 MG/DL CALC LDL CHOL (test code = 2237) 214 MG/DL RISK RATIO LDL/HDL (test code = 4.20 RATIO 2238) COMPREHENSIVE METABOLIC [id number] 00:00:00 Test Item Value Reference Range Interpretation Comments GLUCOSE (test code = 2217) 113 MG/DL BUN (test code = 2208) 18 MG/DL CREATININE (test code = 2214) 0.70 MG/DL eGFR AMER. (test code 111 ML/MIN/1.73 = 43809) eGFR NON- AMER. (test 96 ML/MIN/1.73 code = 21900) CALC BUN/CREAT (test code = 26 RATIO [...] code = 2219) 31 U/L COMPREHENSIVE METABOLIC [id number] 00:00:00 Test Item Value Reference Range Interpretation Comments GLUCOSE (test code = 2217) 113 MG/DL BUN (test code = 2208) 18 MG/DL CREATININE (test code = 2214) 0.70 MG/DL eGFR AMER. (test code 111 ML/MIN/1.73 = 00941) eGFR NON- AMER. (test 96 ML/MIN/1.73 code = 52894) CALC BUN/CREAT (test code = 26 RATIO [...] ALT (test code = 2219) 31 U/L [id number] 00:00:00 Test Item Value Reference Range Interpretation Comments TSH, THIRD GENERATION (test code 2.520 UIU/ML = 2821) [id number] 00:00:00 Test Item Value Reference Range Interpretation Comments TSH, THIRD GENERATION (test code 2.520 UIU/ML = 2821) [id number] 00:00:00 Test Item Value Reference Range Interpretation Comments TSH, THIRD GENERATION (test code 2.520 UIU/ML = 2821) CULTURE, [id number] 00:00:00 Test Item Value Reference Range Interpretation Comments CULTURE, URINE (test SPECIMEN NUMBER: code = 32308) [id number] CULTURE, [id number] 00:00:00 Test Item Value Reference Range Interpretation Comments CULTURE, URINE (test SPECIMEN NUMBER: code = 74870) [id number] CULTURE, [id number] 00:00:00 Test Item Value Reference Range Interpretation Comments CULTURE, URINE (test SPECIMEN NUMBER: code = 08573) [id number] CULTURE, [id number] 00:00:00 Test Item Value Reference Range Interpretation Comments CULTURE, URINE (test SPECIMEN NUMBER: code = 37116) [id number] CULTURE, [id number] 00:00:00 Test Item Value Reference Range Interpretation Comments CULTURE, URINE (test SPECIMEN NUMBER: code = 29453) [id number] CULTURE, [id number] 00:00:00 Test Item Value Reference Range Interpretation Comments CULTURE, URINE (test SPECIMEN NUMBER: code = 38000) [id number] CULTURE, [id number] 00:00:00 Test Item Value Reference Range Interpretation Comments CULTURE, URINE (test SPECIMEN NUMBER: code = 28137) [id number] CULTURE, [id number] 00:00:00 Test Item Value Reference Range Interpretation Comments CULTURE, URINE (test SPECIMEN NUMBER: code = 10668) [id number] CULTURE, [id number] 00:00:00 Test Item Value Reference Range Interpretation Comments CULTURE, URINE (test SPECIMEN NUMBER: code = 31714) [id number] CULTURE, [id number] 00:00:00 Test Item Value Reference Range Interpretation Comments CULTURE, URINE (test SPECIMEN NUMBER: code = 82863) [id number] CULTURE, [id number] 00:00:00 Test Item Value Reference Range Interpretation Comments CULTURE, URINE (test SPECIMEN NUMBER: code = 59702) [id number] CULTURE, [id number] 00:00:00 Test Item Value Reference Range Interpretation Comments CULTURE, URINE (test SPECIMEN NUMBER: code = 78881) [id number] CULTURE, [id number] 00:00:00 Test Item Value Reference Range Interpretation Comments CULTURE, URINE (test SPECIMEN NUMBER: code = 34492) [id number] CULTURE, [id number] 00:00:00 Test Item Value Reference Range Interpretation Comments CULTURE, URINE (test SPECIMEN NUMBER: code = 03749) [id number] BASIC METABOLIC [id number] 00:00:00 Test Item Value Reference Range Interpretation Comments GLUCOSE (test code = 2217) 135 MG/DL BUN (test code = 2208) 25 MG/DL CREATININE (test code = 2214) 0.76 MG/DL eGFR AMER. (test code 101 ML/MIN/1.73 = 12031) eGFR NON- AMER. (test 87 ML/MIN/1.73 code = 15600) SODIUM (test code = 2231) 139 MEQ/L POTASSIUM (test code = 2228) 4.7 MEQ/L CHLORIDE (test code = 2215) 99 MEQ/L CARBON DIOXIDE (test code = 26 MEQ/L 2206) CALCIUM (test code = 2209) 9.4 MG/DL BASIC METABOLIC [id number] 00:00:00 Test Item Value Reference Range Interpretation Comments GLUCOSE (test code = 2217) 135 MG/DL BUN (test code = 2208) 25 MG/DL CREATININE (test code = 2214) 0.76 MG/DL eGFR AMER. (test code 101 ML/MIN/1.73 = 18283) eGFR NON- AMER. (test 87 ML/MIN/1.73 code = 36826) SODIUM (test code = 2231) 139 MEQ/L POTASSIUM (test code = 2228) 4.7 MEQ/L CHLORIDE (test code = 2215) 99 MEQ/L CARBON DIOXIDE (test code = 26 MEQ/L 2205) CALCIUM (test code = 2209) 9.4 MG/DL LIPID [id number] 00:00:00 Test Item Value Reference Range Interpretation Comments CHOLESTEROL (test code = 2210) 262 MG/DL TRIGLYCERIDES (test code = 2232) 300 MG/DL HDL CHOLESTEROL (test code = 2220) 36 MG/DL CALC LDL CHOL (test code = 2237) 166 MG/DL RISK RATIO LDL/HDL (test code = 4.61 RATIO 2238) LIPID [id number] 00:00:00 Test Item Value Reference Range Interpretation Comments CHOLESTEROL (test code = 2210) 262 MG/DL TRIGLYCERIDES (test code = 2232) 300 MG/DL HDL CHOLESTEROL (test code = 2220) 36 MG/DL CALC LDL CHOL (test code = 2237) 166 MG/DL RISK RATIO LDL/HDL (test code = 4.61 RATIO 2238) HEMOGLOBIN [id number] 00:00:00 Test Item Value Reference Range Interpretation Comments HEMOGLOBIN A1c (test code = 15729) 6.2 % HEMOGLOBIN [id number] 00:00:00 Test Item Value Reference Range Interpretation Comments HEMOGLOBIN A1c (test code = 44574) 6.2 % HEMOGLOBIN [id number] 00:00:00 Test Item Value Reference Range Interpretation Comments HEMOGLOBIN A1c (test code = 23554) 6.2 % [id number] 00:00:00 Test Item Value Reference Range Interpretation Comments TSH, THIRD GENERATION (test code 0.988 UIU/ML = 2821) [id number] 00:00:00 Test Item Value Reference Range Interpretation Comments TSH, THIRD GENERATION (test code 0.988 UIU/ML = 2821) [id number] 00:00:00 Test Item Value Reference Range Interpretation Comments TSH, THIRD GENERATION (test code 0.988 UIU/ML = 2821) BASIC METABOLIC [id number] 00:00:00 Test Item Value Reference Range Interpretation Comments GLUCOSE (test code = 2217) 135 MG/DL BUN (test code = 2208) 25 MG/DL CREATININE (test code = 2214) 0.76 MG/DL eGFR AMER. (test code 101 ML/MIN/1.73 = 82595) eGFR NON- AMER. (test 87 ML/MIN/1.73 code = 76142) SODIUM (test code = 2231) 139 MEQ/L POTASSIUM (test code = 2228) 4.7 MEQ/L CHLORIDE (test code = 2215) 99 MEQ/L CARBON DIOXIDE (test code = 26 MEQ/L 2206) CALCIUM (test code = 2209) 9.4 MG/DL BASIC METABOLIC [id number] 00:00:00 Test Item Value Reference Range Interpretation Comments GLUCOSE (test code = 2217) 135 MG/DL BUN (test code = 2208) 25 MG/DL CREATININE (test code = 2214) 0.76 MG/DL eGFR AMER. (test code 101 ML/MIN/1.73 = 09355) eGFR NON- AMER. (test 87 ML/MIN/1.73 code = 57828) SODIUM (test code = 2231) 139 MEQ/L POTASSIUM (test code = 2228) 4.7 MEQ/L CHLORIDE (test code = 2215) 99 MEQ/L CARBON DIOXIDE (test code = 26 MEQ/L 2206) CALCIUM (test code = 2209) 9.4 MG/DL LIPID [id number] 00:00:00 Test Item Value Reference Range Interpretation Comments CHOLESTEROL (test code = 2210) 262 MG/DL TRIGLYCERIDES (test code = 2232) 300 MG/DL HDL CHOLESTEROL (test code = 2220) 36 MG/DL CALC LDL CHOL (test code = 2237) 166 MG/DL RISK RATIO LDL/HDL (test code = 4.61 RATIO 2238) LIPID [id number] 00:00:00 Test Item Value Reference Range Interpretation Comments CHOLESTEROL (test code = 2210) 262 MG/DL TRIGLYCERIDES (test code = 2232) 300 MG/DL HDL CHOLESTEROL (test code = 2220) 36 MG/DL CALC LDL CHOL (test code = 2237) 166 MG/DL RISK RATIO LDL/HDL (test code = 4.61 RATIO 2238) HEMOGLOBIN [id number] 00:00:00 Test Item Value Reference Range Interpretation Comments HEMOGLOBIN A1c (test code = 37671) 6.2 % HEMOGLOBIN [id number] 00:00:00 Test Item Value Reference Range Interpretation Comments HEMOGLOBIN A1c (test code = 42235) 6.2 % HEMOGLOBIN [id number] 00:00:00 Test Item Value Reference Range Interpretation Comments HEMOGLOBIN A1c (test code = 39925) 6.2 % [id number] 00:00:00 Test Item Value Reference Range Interpretation Comments TSH, THIRD GENERATION (test code 0.988 UIU/ML = 2821) [id number] 00:00:00 Test Item Value Reference Range Interpretation Comments TSH, THIRD GENERATION (test code 0.988 UIU/ML = 2821) [id number] 00:00:00 Test Item Value Reference Range Interpretation Comments TSH, THIRD GENERATION (test code 0.988 UIU/ML = 2821) BASIC METABOLIC [id number] 00:00:00 Test Item Value Reference Range Interpretation Comments GLUCOSE (test code = 2217) 135 MG/DL BUN (test code = 2208) 25 MG/DL CREATININE (test code = 2214) 0.76 MG/DL eGFR AMER. (test code 101 ML/MIN/1.73 = 84973) eGFR NON- AMER. (test 87 ML/MIN/1.73 code = 85442) SODIUM (test code = 2231) 139 MEQ/L POTASSIUM (test code = 2228) 4.7 MEQ/L CHLORIDE (test code = 2215) 99 MEQ/L CARBON DIOXIDE (test code = 26 MEQ/L 2206) CALCIUM (test code = 2209) 9.4 MG/DL LIPID [id number] 00:00:00 Test Item Value Reference Range Interpretation Comments CHOLESTEROL (test code = 2210) 262 MG/DL TRIGLYCERIDES (test code = 2232) 300 MG/DL HDL CHOLESTEROL (test code = 2220) 36 MG/DL CALC LDL CHOL (test code = 2237) 166 MG/DL RISK RATIO LDL/HDL (test code = 4.61 RATIO 2238) HEMOGLOBIN [id number] 00:00:00 Test Item Value Reference Range Interpretation Comments HEMOGLOBIN A1c (test code = 36190) 6.2 % HEMOGLOBIN [id number] 00:00:00 Test Item Value Reference Range Interpretation Comments HEMOGLOBIN A1c (test code = 48930) 6.2 % [id number] 00:00:00 Test Item Value Reference Range Interpretation Comments TSH, THIRD GENERATION (test code 0.988 UIU/ML = 2821) [id number] 00:00:00 Test Item Value Reference Range Interpretation Comments TSH, THIRD GENERATION (test code 0.988 UIU/ML = 2821) BASIC METABOLIC [id number] 00:00:00 Test Item Value Reference Range Interpretation Comments GLUCOSE (test code = 2217) 135 MG/DL BUN (test code = 2208) 25 MG/DL CREATININE (test code = 2214) 0.76 MG/DL eGFR AMER. (test code 101 ML/MIN/1.73 = 33238) eGFR NON- AMER. (test 87 ML/MIN/1.73 code = 81440) SODIUM (test code = 2231) 139 MEQ/L POTASSIUM (test code = 2228) 4.7 MEQ/L CHLORIDE (test code = 2215) 99 MEQ/L CARBON DIOXIDE (test code = 26 MEQ/L 2206) CALCIUM (test code = 2209) 9.4 MG/DL BASIC METABOLIC [id number] 00:00:00 Test Item Value Reference Range Interpretation Comments GLUCOSE (test code = 2217) 135 MG/DL BUN (test code = 2208) 25 MG/DL CREATININE (test code = 2214) 0.76 MG/DL eGFR AMER. (test code 101 ML/MIN/1.73 = 56206) eGFR NON- AMER. (test 87 ML/MIN/1.73 code = 18482) SODIUM (test code = 2231) 139 MEQ/L POTASSIUM (test code = 2228) 4.7 MEQ/L CHLORIDE (test code = 2215) 99 MEQ/L CARBON DIOXIDE (test code = 26 MEQ/L 2206) CALCIUM (test code = 2209) 9.4 MG/DL LIPID [id number] 00:00:00 Test Item Value Reference Range Interpretation Comments CHOLESTEROL (test code = 2210) 262 MG/DL TRIGLYCERIDES (test code = 2232) 300 MG/DL HDL CHOLESTEROL (test code = 2220) 36 MG/DL CALC LDL CHOL (test code = 2237) 166 MG/DL RISK RATIO LDL/HDL (test code = 4.61 RATIO 2238) LIPID [id number] 00:00:00 Test Item Value Reference Range Interpretation Comments CHOLESTEROL (test code = 2210) 262 MG/DL TRIGLYCERIDES (test code = 2232) 300 MG/DL HDL CHOLESTEROL (test code = 2220) 36 MG/DL CALC LDL CHOL (test code = 2237) 166 MG/DL RISK RATIO LDL/HDL (test code = 4.61 RATIO 2238) HEMOGLOBIN [id number] 00:00:00 Test Item Value Reference Range Interpretation Comments HEMOGLOBIN A1c (test code = 95793) 6.2 % HEMOGLOBIN [id number] 00:00:00 Test Item Value Reference Range Interpretation Comments HEMOGLOBIN A1c (test code = 99324) 6.2 % HEMOGLOBIN [id number] 00:00:00 Test Item Value Reference Range Interpretation Comments HEMOGLOBIN A1c (test code = 35235) 6.2 % [id number] 00:00:00 Test Item Value Reference Range Interpretation Comments TSH, THIRD GENERATION (test code 0.988 UIU/ML = 2821) [id number] 00:00:00 Test Item Value Reference Range Interpretation Comments TSH, THIRD GENERATION (test code 0.988 UIU/ML = 2821) [id number] 00:00:00 Test Item Value Reference Range Interpretation Comments TSH, THIRD GENERATION (test code 0.988 UIU/ML = 2821) COMPREHENSIVE METABOLIC [id number] 00:00:00 Test Item Value Reference Range Interpretation Comments GLUCOSE (test code = 2217) 109 MG/DL BUN (test code = 2208) 25 MG/DL CREATININE (test code = 2214) 0.78 MG/DL eGFR AMER. (test code 98 ML/MIN/1.73 = 88756) eGFR NON- AMER. (test 84 ML/MIN/1.73 code = 28006) CALC BUN/CREAT (test code = 32 RATIO [...] code = 2219) 25 U/L COMPREHENSIVE METABOLIC [id number] 00:00:00 Test Item Value Reference Range Interpretation Comments GLUCOSE (test code = 2217) 109 MG/DL BUN (test code = 2208) 25 MG/DL CREATININE (test code = 2214) 0.78 MG/DL eGFR AMER. (test code 98 ML/MIN/1.73 = 22053) eGFR NON- AMER. (test 84 ML/MIN/1.73 code = 97855) CALC BUN/CREAT (test code = 32 RATIO [...] (test code = 2219) 25 U/L LIPID [id number] 00:00:00 Test Item Value Reference Range Interpretation Comments CHOLESTEROL (test code = 2210) 295 MG/DL TRIGLYCERIDES (test code = 2232) 218 MG/DL HDL CHOLESTEROL (test code = 2220) 46 MG/DL CALC LDL CHOL (test code = 2237) 205 MG/DL RISK RATIO LDL/HDL (test code = 4.47 RATIO 2238) LIPID [id number] 00:00:00 Test Item Value Reference Range Interpretation Comments CHOLESTEROL (test code = 2210) 295 MG/DL TRIGLYCERIDES (test code = 2232) 218 MG/DL HDL CHOLESTEROL (test code = 2220) 46 MG/DL CALC LDL CHOL (test code = 2237) 205 MG/DL RISK RATIO LDL/HDL (test code = 4.47 RATIO 2238) HEMOGLOBIN [id number] 00:00:00 Test Item Value Reference Range Interpretation Comments HEMOGLOBIN A1c (test code = 28081) 7.0 % HEMOGLOBIN [id number] 00:00:00 Test Item Value Reference Range Interpretation Comments HEMOGLOBIN A1c (test code = 22035) 7.0 % HEMOGLOBIN [id number] 00:00:00 Test Item Value Reference Range Interpretation Comments HEMOGLOBIN A1c (test code = 73822) 7.0 % [id number] 00:00:00 Test Item Value Reference Range Interpretation Comments TSH, THIRD GENERATION (test code 0.565 UIU/ML = 2821) [id number] 00:00:00 Test Item Value Reference Range Interpretation Comments TSH, THIRD GENERATION (test code 0.565 UIU/ML = 2821) [id number] 00:00:00 Test Item Value Reference Range Interpretation Comments TSH, THIRD GENERATION (test code 0.565 UIU/ML = 2821) COMPREHENSIVE METABOLIC [id number] 00:00:00 Test Item Value Reference Range Interpretation Comments GLUCOSE (test code = 2217) 109 MG/DL BUN (test code = 2208) 25 MG/DL CREATININE (test code = 2214) 0.78 MG/DL eGFR AMER. (test code 98 ML/MIN/1.73 = 59111) eGFR NON- AMER. (test 84 ML/MIN/1.73 code = 35636) CALC BUN/CREAT (test code = 32 RATIO [...] code = 2219) 25 U/L COMPREHENSIVE METABOLIC [id number] 00:00:00 Test Item Value Reference Range Interpretation Comments GLUCOSE (test code = 2217) 109 MG/DL BUN (test code = 2208) 25 MG/DL CREATININE (test code = 2214) 0.78 MG/DL eGFR AMER. (test code 98 ML/MIN/1.73 = 83257) eGFR NON- AMER. (test 84 ML/MIN/1.73 code = 34782) CALC BUN/CREAT (test code = 32 RATIO [...] (test code = 2219) 25 U/L LIPID [id number] 00:00:00 Test Item Value Reference Range Interpretation Comments CHOLESTEROL (test code = 2210) 295 MG/DL TRIGLYCERIDES (test code = 2232) 218 MG/DL HDL CHOLESTEROL (test code = 2220) 46 MG/DL CALC LDL CHOL (test code = 2237) 205 MG/DL RISK RATIO LDL/HDL (test code = 4.47 RATIO 2238) LIPID [id number] 00:00:00 Test Item Value Reference Range Interpretation Comments CHOLESTEROL (test code = 2210) 295 MG/DL TRIGLYCERIDES (test code = 2232) 218 MG/DL HDL CHOLESTEROL (test code = 2220) 46 MG/DL CALC LDL CHOL (test code = 2237) 205 MG/DL RISK RATIO LDL/HDL (test code = 4.47 RATIO 2238) HEMOGLOBIN [id number] 00:00:00 Test Item Value Reference Range Interpretation Comments HEMOGLOBIN A1c (test code = 50035) 7.0 % HEMOGLOBIN [id number] 00:00:00 Test Item Value Reference Range Interpretation Comments HEMOGLOBIN A1c (test code = 09379) 7.0 % HEMOGLOBIN [id number] 00:00:00 Test Item Value Reference Range Interpretation Comments HEMOGLOBIN A1c (test code = 13628) 7.0 % [id number] 00:00:00 Test Item Value Reference Range Interpretation Comments TSH, THIRD GENERATION (test code 0.565 UIU/ML = 2821) [id number] 00:00:00 Test Item Value Reference Range Interpretation Comments TSH, THIRD GENERATION (test code 0.565 UIU/ML = 2821) [id number] 00:00:00 Test Item Value Reference Range Interpretation Comments TSH, THIRD GENERATION (test code 0.565 UIU/ML = 2821) COMPREHENSIVE METABOLIC [id number] 00:00:00 Test Item Value Reference Range Interpretation Comments GLUCOSE (test code = 2217) 109 MG/DL BUN (test code = 2208) 25 MG/DL CREATININE (test code = 2214) 0.78 MG/DL eGFR AMER. (test code 98 ML/MIN/1.73 = 16687) eGFR NON- AMER. (test 84 ML/MIN/1.73 code = 21663) CALC BUN/CREAT (test code = 32 RATIO [...] (test code = 2219) 25 U/L LIPID [id number] 00:00:00 Test Item Value Reference Range Interpretation Comments CHOLESTEROL (test code = 2210) 295 MG/DL TRIGLYCERIDES (test code = 2232) 218 MG/DL HDL CHOLESTEROL (test code = 2220) 46 MG/DL CALC LDL CHOL (test code = 2237) 205 MG/DL RISK RATIO LDL/HDL (test code = 4.47 RATIO 2238) HEMOGLOBIN [id number] 00:00:00 Test Item Value Reference Range Interpretation Comments HEMOGLOBIN A1c (test code = 20753) 7.0 % HEMOGLOBIN [id number] 00:00:00 Test Item Value Reference Range Interpretation Comments HEMOGLOBIN A1c (test code = 65738) 7.0 % [id number] 00:00:00 Test Item Value Reference Range Interpretation Comments TSH, THIRD GENERATION (test code 0.565 UIU/ML = 2821) [id number] 00:00:00 Test Item Value Reference Range Interpretation Comments TSH, THIRD GENERATION (test code 0.565 UIU/ML = 2821) COMPREHENSIVE METABOLIC [id number] 00:00:00 Test Item Value Reference Range Interpretation Comments GLUCOSE (test code = 2217) 109 MG/DL BUN (test code = 2208) 25 MG/DL CREATININE (test code = 2214) 0.78 MG/DL eGFR AMER. (test code 98 ML/MIN/1.73 = 71243) eGFR NON- AMER. (test 84 ML/MIN/1.73 code = 08692) CALC BUN/CREAT (test code = 32 RATIO [...] code = 2219) 25 U/L COMPREHENSIVE METABOLIC [id number] 00:00:00 Test Item Value Reference Range Interpretation Comments GLUCOSE (test code = 2217) 109 MG/DL BUN (test code = 2208) 25 MG/DL CREATININE (test code = 2214) 0.78 MG/DL eGFR AMER. (test code 98 ML/MIN/1.73 = 46674) eGFR NON- AMER. (test 84 ML/MIN/1.73 code = 65488) CALC BUN/CREAT (test code = 32 RATIO [...] (test code = 2219) 25 U/L LIPID [id number] 00:00:00 Test Item Value Reference Range Interpretation Comments CHOLESTEROL (test code = 2210) 295 MG/DL TRIGLYCERIDES (test code = 2232) 218 MG/DL HDL CHOLESTEROL (test code = 2220) 46 MG/DL CALC LDL CHOL (test code = 2237) 205 MG/DL RISK RATIO LDL/HDL (test code = 4.47 RATIO 2238) LIPID [id number] 00:00:00 Test Item Value Reference Range Interpretation Comments CHOLESTEROL (test code = 2210) 295 MG/DL TRIGLYCERIDES (test code = 2232) 218 MG/DL HDL CHOLESTEROL (test code = 2220) 46 MG/DL CALC LDL CHOL (test code = 2237) 205 MG/DL RISK RATIO LDL/HDL (test code = 4.47 RATIO 2238) HEMOGLOBIN [id number] 00:00:00 Test Item Value Reference Range Interpretation Comments HEMOGLOBIN A1c (test code = 08759) 7.0 % HEMOGLOBIN [id number] 00:00:00 Test Item Value Reference Range Interpretation Comments HEMOGLOBIN A1c (test code = 69072) 7.0 % HEMOGLOBIN [id number] 00:00:00 Test Item Value Reference Range Interpretation Comments HEMOGLOBIN A1c (test code = 60997) 7.0 % [id number] 00:00:00 Test Item Value Reference Range Interpretation Comments TSH, THIRD GENERATION (test code 0.565 UIU/ML = 2821) [id number] 00:00:00 Test Item Value Reference Range Interpretation Comments TSH, THIRD GENERATION (test code 0.565 UIU/ML = 2821) [id number] 00:00:00 Test Item Value Reference Range Interpretation Comments TSH, THIRD GENERATION (test code 0.565 UIU/ML = 2821) [id number] 00:00:00 Test Item Value Reference Range Interpretation Comments TSH, THIRD GENERATION (test code 0.379 UIU/ML = 2821) [id number] 00:00:00 Test Item Value Reference Range Interpretation Comments TSH, THIRD GENERATION (test code 0.379 UIU/ML = 2821) [id number] 00:00:00 Test Item Value Reference Range Interpretation Comments TSH, THIRD GENERATION (test code 0.379 UIU/ML = 2821) [id number] 00:00:00 Test Item Value Reference Range Interpretation Comments TSH, THIRD GENERATION (test code 0.379 UIU/ML = 2821) [id number] 00:00:00 Test Item Value Reference Range Interpretation Comments TSH, THIRD GENERATION (test code 0.379 UIU/ML = 2821) [id number] 00:00:00 Test Item Value Reference Range Interpretation Comments TSH, THIRD GENERATION (test code 0.379 UIU/ML = 2821) [id number] 00:00:00 Test Item Value Reference Range Interpretation Comments TSH, THIRD GENERATION (test code 0.379 UIU/ML = 2821) [id number] 00:00:00 Test Item Value Reference Range Interpretation Comments TSH, THIRD GENERATION (test code 0.379 UIU/ML = 2821) [id number] 00:00:00 Test Item Value Reference Range Interpretation Comments TSH, THIRD GENERATION (test code 0.379 UIU/ML = 2821) [id number] 00:00:00 Test Item Value Reference Range Interpretation Comments TSH, THIRD GENERATION (test code 0.379 UIU/ML = 2821) [id number] 00:00:00 Test Item Value Reference Range Interpretation Comments TSH, THIRD GENERATION (test code 0.379 UIU/ML = 2821) CULTURE, [id number] 00:00:00 Test Item Value Reference Range Interpretation Comments CULTURE, URINE (test SPECIMEN NUMBER: code = 08774) [id number] CULTURE, [id number] 00:00:00 Test Item Value Reference Range Interpretation Comments CULTURE, URINE (test SPECIMEN NUMBER: code = 63406) [id number] CULTURE, [id number] 00:00:00 Test Item Value Reference Range Interpretation Comments CULTURE, URINE (test SPECIMEN NUMBER: code = 48829) [id number] CULTURE, [id number] 00:00:00 Test Item Value Reference Range Interpretation Comments CULTURE, URINE (test SPECIMEN NUMBER: code = 63021) [id number] CULTURE, [id number] 00:00:00 Test Item Value Reference Range Interpretation Comments CULTURE, URINE (test SPECIMEN NUMBER: code = 31049) [id number] CULTURE, [id number] 00:00:00 Test Item Value Reference Range Interpretation Comments CULTURE, URINE (test SPECIMEN NUMBER: code = 59347) [id number] CULTURE, [id number] 00:00:00 Test Item Value Reference Range Interpretation Comments CULTURE, URINE (test SPECIMEN NUMBER: code = 14098) [id number] COMPREHENSIVE METABOLIC [id number] 00:00:00 Test Item Value Reference Range Interpretation Comments GLUCOSE (test code = 2217) 128 MG/DL BUN (test code = 2208) 26 MG/DL CREATININE (test code = 2214) 0.92 MG/DL eGFR AMER. (test code 81 ML/MIN/1.73 = 93428) eGFR NON- AMER. (test 70 ML/MIN/1.73 code = 77769) CALC BUN/CREAT (test code = 28 RATIO [...] code = 2219) 29 U/L COMPREHENSIVE METABOLIC [id number] 00:00:00 Test Item Value Reference Range Interpretation Comments GLUCOSE (test code = 2217) 128 MG/DL BUN (test code = 2208) 26 MG/DL CREATININE (test code = 2214) 0.92 MG/DL eGFR AMER. (test code 81 ML/MIN/1.73 = 49476) eGFR NON- AMER. (test 70 ML/MIN/1.73 code = 60657) CALC BUN/CREAT (test code = 28 RATIO [...] code = 2219) 29 U/L ACUTE HEPATITIS [id number] 00:00:00 Test Item Value Reference Range Interpretation Comments HEPATITIS A IgM (test code = NON-REACTIVE 49312) HEPATITIS B CORE IgM (test code NON-REACTIVE = 4644) HEPATITIS B SURF AG (test code = NON-REACTIVE 2739) HEPATITIS C ANTIBODY (test code NON-REACTIVE = 4675) INTERPRETATION HEPATITIS A: (NOTE) (test code = 2552) INTERPRETATION HEPATITIS B: (NOTE) (test code = 45752) INTERPRETATION HEPATITIS C: (NOTE) (test code = 08035) ACUTE HEPATITIS [id number] 00:00:00 Test Item Value Reference Range Interpretation Comments HEPATITIS A IgM (test code = NON-REACTIVE 97079) HEPATITIS B CORE IgM (test code NON-REACTIVE = 4644) HEPATITIS B SURF AG (test code = NON-REACTIVE 2739) HEPATITIS C ANTIBODY (test code NON-REACTIVE = 4675) INTERPRETATION HEPATITIS A: (NOTE) (test code = 2552) INTERPRETATION HEPATITIS B: (NOTE) (test code = 83486) INTERPRETATION HEPATITIS C: (NOTE) (test code = 58983) [id number] 00:00:00 Test Item Value Reference Range Interpretation Comments AMYLASE (test code = 2205) 32 U/L [id number] 00:00:00 Test Item Value Reference Range Interpretation Comments AMYLASE (test code = 2205) 32 U/L [id number] 00:00:00 Test Item Value Reference Range Interpretation Comments LIPASE (test code = 2058) 22 U/L [id number] 00:00:00 Test Item Value Reference Range Interpretation Comments LIPASE (test code = 2058) 22 U/L [id number] 00:00:00 Test Item Value Reference Range Interpretation Comments LIPASE (test code = 2058) 22 U/L COMPREHENSIVE METABOLIC [id number] 00:00:00 Test Item Value Reference Range Interpretation Comments GLUCOSE (test code = 2217) 128 MG/DL BUN (test code = 2208) 26 MG/DL CREATININE (test code = 2214) 0.92 MG/DL eGFR AMER. (test code 81 ML/MIN/1.73 = 03986) eGFR NON- AMER. (test 70 ML/MIN/1.73 code = 01955) CALC BUN/CREAT (test code = 28 RATIO [...] code = 2219) 29 U/L COMPREHENSIVE METABOLIC [id number] 00:00:00 Test Item Value Reference Range Interpretation Comments GLUCOSE (test code = 2217) 128 MG/DL BUN (test code = 2208) 26 MG/DL CREATININE (test code = 2214) 0.92 MG/DL eGFR AMER. (test code 81 ML/MIN/1.73 = 69607) eGFR NON- AMER. (test 70 ML/MIN/1.73 code = 61440) CALC BUN/CREAT (test code = 28 RATIO [...] code = 2219) 29 U/L ACUTE HEPATITIS [id number] 00:00:00 Test Item Value Reference Range Interpretation Comments HEPATITIS A IgM (test code = NON-REACTIVE 14263) HEPATITIS B CORE IgM (test code NON-REACTIVE = 4644) HEPATITIS B SURF AG (test code = NON-REACTIVE 2739) HEPATITIS C ANTIBODY (test code NON-REACTIVE = 4675) INTERPRETATION HEPATITIS A: (NOTE) (test code = 2552) INTERPRETATION HEPATITIS B: (NOTE) (test code = 05078) INTERPRETATION HEPATITIS C: (NOTE) (test code = 36490) ACUTE HEPATITIS [id number] 00:00:00 Test Item Value Reference Range Interpretation Comments HEPATITIS A IgM (test code = NON-REACTIVE 86083) HEPATITIS B CORE IgM (test code NON-REACTIVE = 4644) HEPATITIS B SURF AG (test code = NON-REACTIVE 2739) HEPATITIS C ANTIBODY (test code NON-REACTIVE = 4675) INTERPRETATION HEPATITIS A: (NOTE) (test code = 2552) INTERPRETATION HEPATITIS B: (NOTE) (test code = 70950) INTERPRETATION HEPATITIS C: (NOTE) (test code = 72062) [id number] 00:00:00 Test Item Value Reference Range Interpretation Comments AMYLASE (test code = 2205) 32 U/L [id number] 00:00:00 Test Item Value Reference Range Interpretation Comments AMYLASE (test code = 2205) 32 U/L [id number] 00:00:00 Test Item Value Reference Range Interpretation Comments LIPASE (test code = 2058) 22 U/L [id number] 00:00:00 Test Item Value Reference Range Interpretation Comments LIPASE (test code = 2058) 22 U/L [id number] 00:00:00 Test Item Value Reference Range Interpretation Comments LIPASE (test code = 2058) 22 U/L COMPREHENSIVE METABOLIC [id number] 00:00:00 Test Item Value Reference Range Interpretation Comments GLUCOSE (test code = 2217) 128 MG/DL BUN (test code = 2208) 26 MG/DL CREATININE (test code = 2214) 0.92 MG/DL eGFR AMER. (test code 81 ML/MIN/1.73 = 30977) eGFR NON- AMER. (test 70 ML/MIN/1.73 code = 34705) CALC BUN/CREAT (test code = 28 RATIO [...] code = 2219) 29 U/L ACUTE HEPATITIS [id number] 00:00:00 Test Item Value Reference Range Interpretation Comments HEPATITIS A IgM (test code = NON-REACTIVE 99126) HEPATITIS B CORE IgM (test code NON-REACTIVE = 7680) HEPATITIS B SURF AG (test code = NON-REACTIVE 5986) HEPATITIS C ANTIBODY (test code NON-REACTIVE = 4626) INTERPRETATION HEPATITIS A: (NOTE) (test code = 2552) INTERPRETATION HEPATITIS B: (NOTE) (test code = 27255) INTERPRETATION HEPATITIS C: (NOTE) (test code = 26231) [id number] 00:00:00 Test Item Value Reference Range Interpretation Comments AMYLASE (test code = 2205) 32 U/L [id number] 00:00:00 Test Item Value Reference Range Interpretation Comments LIPASE (test code = 2058) 22 U/L [id number] 00:00:00 Test Item Value Reference Range Interpretation Comments LIPASE (test code = 2058) 22 U/L COMPREHENSIVE METABOLIC [id number] 00:00:00 Test Item Value Reference Range Interpretation Comments GLUCOSE (test code = 2217) 128 MG/DL BUN (test code = 2208) 26 MG/DL CREATININE (test code = 2214) 0.92 MG/DL eGFR AMER. (test code 81 ML/MIN/1.73 = 34240) eGFR NON- AMER. (test 70 ML/MIN/1.73 code = 27637) CALC BUN/CREAT (test code = 28 RATIO [...] code = 2219) 29 U/L COMPREHENSIVE METABOLIC [id number] 00:00:00 Test Item Value Reference Range Interpretation Comments GLUCOSE (test code = 2217) 128 MG/DL BUN (test code = 2208) 26 MG/DL CREATININE (test code = 2214) 0.92 MG/DL eGFR AMER. (test code 81 ML/MIN/1.73 = 58549) eGFR NON- AMER. (test 70 ML/MIN/1.73 code = 68880) CALC BUN/CREAT (test code = 28 RATIO [...] code = 2219) 29 U/L ACUTE HEPATITIS [id number] 00:00:00 Test Item Value Reference Range Interpretation Comments HEPATITIS A IgM (test code = NON-REACTIVE 87485) HEPATITIS B CORE IgM (test code NON-REACTIVE = 7564) HEPATITIS B SURF AG (test code = NON-REACTIVE 6660) HEPATITIS C ANTIBODY (test code NON-REACTIVE = 4675) INTERPRETATION HEPATITIS A: (NOTE) (test code = 2552) INTERPRETATION HEPATITIS B: (NOTE) (test code = 58720) INTERPRETATION HEPATITIS C: (NOTE) (test code = 92938) ACUTE HEPATITIS [id number] 00:00:00 Test Item Value Reference Range Interpretation Comments HEPATITIS A IgM (test code = NON-REACTIVE 34352) HEPATITIS B CORE IgM (test code NON-REACTIVE = 4644) HEPATITIS B SURF AG (test code = NON-REACTIVE 2739) HEPATITIS C ANTIBODY (test code NON-REACTIVE = 4675) INTERPRETATION HEPATITIS A: (NOTE) (test code = 2552) INTERPRETATION HEPATITIS B: (NOTE) (test code = 60651) INTERPRETATION HEPATITIS C: (NOTE) (test code = 27965) [id number] 00:00:00 Test Item Value Reference Range Interpretation Comments AMYLASE (test code = 2205) 32 U/L [id number] 00:00:00 Test Item Value Reference Range Interpretation Comments AMYLASE (test code = 2205) 32 U/L [id number] 00:00:00 Test Item Value Reference Range Interpretation Comments LIPASE (test code = 2058) 22 U/L [id number] 00:00:00 Test Item Value Reference Range Interpretation Comments LIPASE (test code = 2058) 22 U/L [id number] 00:00:00 Test Item Value Reference Range Interpretation Comments LIPASE (test code = 2058) 22 U/L [id number] 00:00:00 Test Item Value Reference Range Interpretation Comments TSH, THIRD GENERATION (test code 4.890 UIU/ML = 2821) [id number] 00:00:00 Test Item Value Reference Range Interpretation Comments TSH, THIRD GENERATION (test code 4.890 UIU/ML = 2821) [id number] 00:00:00 Test Item Value Reference Range Interpretation Comments TSH, THIRD GENERATION (test code 4.890 UIU/ML = 2821) COMPREHENSIVE METABOLIC [id number] 00:00:00 Test Item Value Reference Range Interpretation Comments GLUCOSE (test code = 2217) 121 MG/DL BUN (test code = 2208) 40 MG/DL CREATININE (test code = 2214) 1.48 MG/DL eGFR AMER. (test code 45 ML/MIN/1.73 = 68502) eGFR NON- AMER. (test 39 ML/MIN/1.73 code = 62271) CALC BUN/CREAT (test code = 27 RATIO [...] code = 2219) 20 U/L COMPREHENSIVE METABOLIC [id number] 00:00:00 Test Item Value Reference Range Interpretation Comments GLUCOSE (test code = 2217) 121 MG/DL BUN (test code = 2208) 40 MG/DL CREATININE (test code = 2214) 1.48 MG/DL eGFR AMER. (test code 45 ML/MIN/1.73 = 40942) eGFR NON- AMER. (test 39 ML/MIN/1.73 code = 17122) CALC BUN/CREAT (test code = 27 RATIO [...] ALT (test code = 2219) 20 U/L [id number] 00:00:00 Test Item Value Reference Range Interpretation Comments TSH, THIRD GENERATION (test code 4.890 UIU/ML = 2821) [id number] 00:00:00 Test Item Value Reference Range Interpretation Comments TSH, THIRD GENERATION (test code 4.890 UIU/ML = 2821) [id number] 00:00:00 Test Item Value Reference Range Interpretation Comments TSH, THIRD GENERATION (test code 4.890 UIU/ML = 2821) COMPREHENSIVE METABOLIC [id number] 00:00:00 Test Item Value Reference Range Interpretation Comments GLUCOSE (test code = 2217) 121 MG/DL BUN (test code = 2208) 40 MG/DL CREATININE (test code = 2214) 1.48 MG/DL eGFR AMER. (test code 45 ML/MIN/1.73 = 96706) eGFR NON- AMER. (test 39 ML/MIN/1.73 code = 84598) CALC BUN/CREAT (test code = 27 RATIO [...] code = 2219) 20 U/L COMPREHENSIVE METABOLIC [id number] 00:00:00 Test Item Value Reference Range Interpretation Comments GLUCOSE (test code = 2217) 121 MG/DL BUN (test code = 2208) 40 MG/DL CREATININE (test code = 2214) 1.48 MG/DL eGFR AMER. (test code 45 ML/MIN/1.73 = 86380) eGFR NON- AMER. (test 39 ML/MIN/1.73 code = 35170) CALC BUN/CREAT (test code = 27 RATIO [...] ALT (test code = 2219) 20 U/L [id number] 00:00:00 Test Item Value Reference Range Interpretation Comments TSH, THIRD GENERATION (test code 4.890 UIU/ML = 2821) [id number] 00:00:00 Test Item Value Reference Range Interpretation Comments TSH, THIRD GENERATION (test code 4.890 UIU/ML = 2821) COMPREHENSIVE METABOLIC [id number] 00:00:00 Test Item Value Reference Range Interpretation Comments GLUCOSE (test code = 2217) 121 MG/DL BUN (test code = 2208) 40 MG/DL CREATININE (test code = 2214) 1.48 MG/DL eGFR AMER. (test code 45 ML/MIN/1.73 = 93219) eGFR NON- AMER. (test 39 ML/MIN/1.73 code = 14136) CALC BUN/CREAT (test code = 27 RATIO [...] ALT (test code = 2219) 20 U/L [id number] 00:00:00 Test Item Value Reference Range Interpretation Comments TSH, THIRD GENERATION (test code 4.890 UIU/ML = 2821) [id number] 00:00:00 Test Item Value Reference Range Interpretation Comments TSH, THIRD GENERATION (test code 4.890 UIU/ML = 2821) [id number] 00:00:00 Test Item Value Reference Range Interpretation Comments TSH, THIRD GENERATION (test code 4.890 UIU/ML = 2821) COMPREHENSIVE METABOLIC [id number] 00:00:00 Test Item Value Reference Range Interpretation Comments GLUCOSE (test code = 2217) 121 MG/DL BUN (test code = 2208) 40 MG/DL CREATININE (test code = 2214) 1.48 MG/DL eGFR AMER. (test code 45 ML/MIN/1.73 = 90961) eGFR NON- AMER. (test 39 ML/MIN/1.73 code = 83700) CALC BUN/CREAT (test code = 27 RATIO [...] code = 2219) 20 U/L COMPREHENSIVE METABOLIC [id number] 00:00:00 Test Item Value Reference Range Interpretation Comments GLUCOSE (test code = 2217) 121 MG/DL BUN (test code = 2208) 40 MG/DL CREATININE (test code = 2214) 1.48 MG/DL eGFR AMER. (test code 45 ML/MIN/1.73 = 25758) eGFR NON- AMER. (test 39 ML/MIN/1.73 code = 21523) CALC BUN/CREAT (test code = 27 RATIO [...] (test code = 2219) 20 U/L LIPID [id number] 00:00:00 Test Item Value Reference Range Interpretation Comments CHOLESTEROL (test code = 2210) 261 MG/DL TRIGLYCERIDES (test code = 2232) 165 MG/DL HDL CHOLESTEROL (test code = 2220) 58 MG/DL CALC LDL CHOL (test code = 2237) 170 MG/DL RISK RATIO LDL/HDL (test code = 2.93 RATIO 2238) LIPID [id number] 00:00:00 Test Item Value Reference Range Interpretation Comments CHOLESTEROL (test code = 2210) 261 MG/DL TRIGLYCERIDES (test code = 2232) 165 MG/DL HDL CHOLESTEROL (test code = 2220) 58 MG/DL CALC LDL CHOL (test code = 2237) 170 MG/DL RISK RATIO LDL/HDL (test code = 2.93 RATIO 2238) CBC W/AUTO [id number] 00:00:00 Test Item Value Reference Range Interpretation [...] code = 1015) 378 K/UL CBC W/AUTO [id number] 00:00:00 Test Item Value Reference Range Interpretation [...] code = 1015) 378 K/UL CBC W/AUTO [id number] 00:00:00 Test Item Value Reference Range Interpretation [...] (test code = 1015) 378 K/UL HEMOGLOBIN [id number] 00:00:00 Test Item Value Reference Range Interpretation Comments HEMOGLOBIN A1c (test code = 12476) 6.4 % HEMOGLOBIN [id number] 00:00:00 Test Item Value Reference Range Interpretation Comments HEMOGLOBIN A1c (test code = 53441) 6.4 % HEMOGLOBIN [id number] 00:00:00 Test Item Value Reference Range Interpretation Comments HEMOGLOBIN A1c (test code = 22388) 6.4 % [id number] 00:00:00 Test Item Value Reference Range Interpretation Comments TSH (test code = 2821) 5.290 UIU/ML [id number] 00:00:00 Test Item Value Reference Range Interpretation Comments TSH (test code = 2821) 5.290 UIU/ML [id number] 00:00:00 Test Item Value Reference Range Interpretation Comments TSH (test code = 2821) 5.290 UIU/ML LIPID [id number] 00:00:00 Test Item Value Reference Range Interpretation Comments CHOLESTEROL (test code = 2210) 261 MG/DL TRIGLYCERIDES (test code = 2232) 165 MG/DL HDL CHOLESTEROL (test code = 2220) 58 MG/DL CALC LDL CHOL (test code = 2237) 170 MG/DL RISK RATIO LDL/HDL (test code = 2.93 RATIO 2238) LIPID [id number] 00:00:00 Test Item Value Reference Range Interpretation Comments CHOLESTEROL (test code = 2210) 261 MG/DL TRIGLYCERIDES (test code = 2232) 165 MG/DL HDL CHOLESTEROL (test code = 2220) 58 MG/DL CALC LDL CHOL (test code = 2237) 170 MG/DL RISK RATIO LDL/HDL (test code = 2.93 RATIO 2238) CBC W/AUTO [id number] 00:00:00 Test Item Value Reference Range Interpretation [...] code = 1015) 378 K/UL CBC W/AUTO [id number] 00:00:00 Test Item Value Reference Range Interpretation [...] code = 1015) 378 K/UL CBC W/AUTO [id number] 00:00:00 Test Item Value Reference Range Interpretation [...] (test code = 1015) 378 K/UL HEMOGLOBIN [id number] 00:00:00 Test Item Value Reference Range Interpretation Comments HEMOGLOBIN A1c (test code = 99519) 6.4 % HEMOGLOBIN [id number] 00:00:00 Test Item Value Reference Range Interpretation Comments HEMOGLOBIN A1c (test code = 97462) 6.4 % HEMOGLOBIN [id number] 00:00:00 Test Item Value Reference Range Interpretation Comments HEMOGLOBIN A1c (test code = 64698) 6.4 % [id number] 00:00:00 Test Item Value Reference Range Interpretation Comments TSH (test code = 2821) 5.290 UIU/ML [id number] 00:00:00 Test Item Value Reference Range Interpretation Comments TSH (test code = 2821) 5.290 UIU/ML [id number] 00:00:00 Test Item Value Reference Range Interpretation Comments TSH (test code = 2821) 5.290 UIU/ML LIPID [id number] 00:00:00 Test Item Value Reference Range Interpretation Comments CHOLESTEROL (test code = 2210) 261 MG/DL TRIGLYCERIDES (test code = 2232) 165 MG/DL HDL CHOLESTEROL (test code = 2220) 58 MG/DL CALC LDL CHOL (test code = 2237) 170 MG/DL RISK RATIO LDL/HDL (test code = 2.93 RATIO 2238) CBC W/AUTO [id number] 00:00:00 Test Item Value Reference Range Interpretation [...] code = 1015) 378 K/UL CBC W/AUTO [id number] 00:00:00 Test Item Value Reference Range Interpretation [...] (test code = 1015) 378 K/UL HEMOGLOBIN [id number] 00:00:00 Test Item Value Reference Range Interpretation Comments HEMOGLOBIN A1c (test code = 22899) 6.4 % HEMOGLOBIN [id number] 00:00:00 Test Item Value Reference Range Interpretation Comments HEMOGLOBIN A1c (test code = 48576) 6.4 % [id number] 00:00:00 Test Item Value Reference Range Interpretation Comments TSH (test code = 2821) 5.290 UIU/ML [id number] 00:00:00 Test Item Value Reference Range Interpretation Comments TSH (test code = 2821) 5.290 UIU/ML LIPID [id number] 00:00:00 Test Item Value Reference Range Interpretation Comments CHOLESTEROL (test code = 2210) 261 MG/DL TRIGLYCERIDES (test code = 2232) 165 MG/DL HDL CHOLESTEROL (test code = 2220) 58 MG/DL CALC LDL CHOL (test code = 2237) 170 MG/DL RISK RATIO LDL/HDL (test code = 2.93 RATIO 2238) LIPID [id number] 00:00:00 Test Item Value Reference Range Interpretation Comments CHOLESTEROL (test code = 2210) 261 MG/DL TRIGLYCERIDES (test code = 2232) 165 MG/DL HDL CHOLESTEROL (test code = 2220) 58 MG/DL CALC LDL CHOL (test code = 2237) 170 MG/DL RISK RATIO LDL/HDL (test code = 2.93 RATIO 2238) CBC W/AUTO [id number] 00:00:00 Test Item Value Reference Range Interpretation [...] code = 1015) 378 K/UL CBC W/AUTO [id number] 00:00:00 Test Item Value Reference Range Interpretation [...] code = 1015) 378 K/UL CBC W/AUTO [id number] 00:00:00 Test Item Value Reference Range Interpretation [...] (test code = 1015) 378 K/UL HEMOGLOBIN [id number] 00:00:00 Test Item Value Reference Range Interpretation Comments HEMOGLOBIN A1c (test code = 65847) 6.4 % HEMOGLOBIN [id number] 00:00:00 Test Item Value Reference Range Interpretation Comments HEMOGLOBIN A1c (test code = 50147) 6.4 % HEMOGLOBIN [id number] 00:00:00 Test Item Value Reference Range Interpretation Comments HEMOGLOBIN A1c (test code = 65986) 6.4 % [id number] 00:00:00 Test Item Value Reference Range Interpretation Comments TSH (test code = 2821) 5.290 UIU/ML [id number] 00:00:00 Test Item Value Reference Range Interpretation Comments TSH (test code = 2821) 5.290 UIU/ML [id number] 00:00:00 Test Item Value Reference Range Interpretation [...] code = 2821) 1.030 UIU/ML COMPREHENSIVE METABOLIC [id number] 00:00:00 Test Item Value Reference Range Interpretation Comments GLUCOSE (test code = 2217) 106 MG/DL BUN (test code = 2208) 23 MG/DL CREATININE (test code = 2214) 0.66 MG/DL eGFR AMER. (test code 114 ML/MIN/1.73 = 59940) eGFR NON- AMER. (test 99 ML/MIN/1.73 code = 05653) CALC BUN/CREAT (test code = 35 RATIO [...] code = 2219) 31 U/L COMPREHENSIVE METABOLIC [id number] 00:00:00 Test Item Value Reference Range Interpretation Comments GLUCOSE (test code = 2217) 106 MG/DL BUN (test code = 2208) 23 MG/DL CREATININE (test code = 2214) 0.66 MG/DL eGFR AMER. (test code 114 ML/MIN/1.73 = 05444) eGFR NON- AMER. (test 99 ML/MIN/1.73 code = 85908) CALC BUN/CREAT (test code = 35 RATIO [...] code = 2821) 0.335 UIU/ML COMPREHENSIVE METABOLIC [id number] 00:00:00 Test Item Value Reference Range Interpretation Comments GLUCOSE (test code = 2217) 106 MG/DL BUN (test code = 2208) 23 MG/DL CREATININE (test code = 2214) 0.66 MG/DL eGFR AMER. (test code 114 ML/MIN/1.73 = 80436) eGFR NON- AMER. (test 99 ML/MIN/1.73 code = 04828) CALC BUN/CREAT (test code = 35 RATIO [...] code = 2219) 31 U/L COMPREHENSIVE METABOLIC [id number] 00:00:00 Test Item Value Reference Range Interpretation Comments GLUCOSE (test code = 2217) 106 MG/DL BUN (test code = 2208) 23 MG/DL CREATININE (test code = 2214) 0.66 MG/DL eGFR AMER. (test code 114 ML/MIN/1.73 = 46829) eGFR NON- AMER. (test 99 ML/MIN/1.73 code = 78368) CALC BUN/CREAT (test code = 35 RATIO [...] code = 2821) 0.335 UIU/ML COMPREHENSIVE METABOLIC [id number] 00:00:00 Test Item Value Reference Range Interpretation Comments GLUCOSE (test code = 2217) 106 MG/DL BUN (test code = 2208) 23 MG/DL CREATININE (test code = 2214) 0.66 MG/DL eGFR AMER. (test code 114 ML/MIN/1.73 = 09431) eGFR NON- AMER. (test 99 ML/MIN/1.73 code = 84547) CALC BUN/CREAT (test code = 35 RATIO [...] code = 2821) 0.335 UIU/ML COMPREHENSIVE METABOLIC [id number] 00:00:00 Test Item Value Reference Range Interpretation Comments GLUCOSE (test code = 2217) 106 MG/DL BUN (test code = 2208) 23 MG/DL CREATININE (test code = 2214) 0.66 MG/DL eGFR AMER. (test code 114 ML/MIN/1.73 = 13483) eGFR NON- AMER. (test 99 ML/MIN/1.73 code = 48427) CALC BUN/CREAT (test code = 35 RATIO [...] code = 2219) 31 U/L COMPREHENSIVE METABOLIC [id number] 00:00:00 Test Item Value Reference Range Interpretation Comments GLUCOSE (test code = 2217) 106 MG/DL BUN (test code = 2208) 23 MG/DL CREATININE (test code = 2214) 0.66 MG/DL eGFR AMER. (test code 114 ML/MIN/1.73 = 04769) eGFR NON- AMER. (test 99 ML/MIN/1.73 code = 73611) CALC BUN/CREAT (test code = 35 RATIO [...] code = 2821) 0.335 UIU/ML COMPREHENSIVE METABOLIC [id number] 00:00:00 Test Item Value Reference Range Interpretation Comments GLUCOSE (test code = 2217) 103 MG/DL BUN (test code = 2208) 15 MG/DL CREATININE (test code = 2214) 0.77 MG/DL eGFR AMER. (test code 101 ML/MIN/1.73 = 76434) eGFR NON- AMER. (test 87 ML/MIN/1.73 code = 29801) CALC BUN/CREAT (test code = 19 RATIO [...] code = 2219) 24 U/L COMPREHENSIVE METABOLIC [id number] 00:00:00 Test Item Value Reference Range Interpretation Comments GLUCOSE (test code = 2217) 103 MG/DL BUN (test code = 2208) 15 MG/DL CREATININE (test code = 2214) 0.77 MG/DL eGFR AMER. (test code 101 ML/MIN/1.73 = 26125) eGFR NON- AMER. (test 87 ML/MIN/1.73 code = 52169) CALC BUN/CREAT (test code = 19 RATIO [...] code = 2821) 0.424 UIU/ML COMPREHENSIVE METABOLIC [id number] 00:00:00 Test Item Value Reference Range Interpretation Comments GLUCOSE (test code = 2217) 103 MG/DL BUN (test code = 2208) 15 MG/DL CREATININE (test code = 2214) 0.77 MG/DL eGFR AMER. (test code 101 ML/MIN/1.73 = 69887) eGFR NON- AMER. (test 87 ML/MIN/1.73 code = 88888) CALC BUN/CREAT (test code = 19 RATIO [...] code = 2219) 24 U/L COMPREHENSIVE METABOLIC [id number] 00:00:00 Test Item Value Reference Range Interpretation Comments GLUCOSE (test code = 2217) 103 MG/DL BUN (test code = 2208) 15 MG/DL CREATININE (test code = 2214) 0.77 MG/DL eGFR AMER. (test code 101 ML/MIN/1.73 = 55696) eGFR NON- AMER. (test 87 ML/MIN/1.73 code = 95448) CALC BUN/CREAT (test code = 19 RATIO [...] code = 2821) 0.424 UIU/ML COMPREHENSIVE METABOLIC [id number] 00:00:00 Test Item Value Reference Range Interpretation Comments GLUCOSE (test code = 2217) 103 MG/DL BUN (test code = 2208) 15 MG/DL CREATININE (test code = 2214) 0.77 MG/DL eGFR AMER. (test code 101 ML/MIN/1.73 = 43842) eGFR NON- AMER. (test 87 ML/MIN/1.73 code = 46004) CALC BUN/CREAT (test code = 19 RATIO [...] code = 2821) 0.424 UIU/ML COMPREHENSIVE METABOLIC [id number] 00:00:00 Test Item Value Reference Range Interpretation Comments GLUCOSE (test code = 2217) 103 MG/DL BUN (test code = 2208) 15 MG/DL CREATININE (test code = 2214) 0.77 MG/DL eGFR AMER. (test code 101 ML/MIN/1.73 = 10712) eGFR NON- AMER. (test 87 ML/MIN/1.73 code = 23864) CALC BUN/CREAT (test code = 19 RATIO [...] code = 2219) 24 U/L COMPREHENSIVE METABOLIC [id number] 00:00:00 Test Item Value Reference Range Interpretation Comments GLUCOSE (test code = 2217) 103 MG/DL BUN (test code = 2208) 15 MG/DL CREATININE (test code = 2214) 0.77 MG/DL eGFR AMER. (test code 101 ML/MIN/1.73 = 09947) eGFR NON- AMER. (test 87 ML/MIN/1.73 code = 41983) CALC BUN/CREAT (test code = 19 RATIO [...] 2218) 15 U/L ALT (test code = 221) 24 U/L THYROID II PROFILE (T3U, T4, [...] (test code = 2821) 0.424 UIU/ML CULTURE, [id number] 00:00:00 Test Item Value Reference Range Interpretation Comments CULTURE, URINE (test SPECIMEN NUMBER: code = 04084) [id number] CULTURE, [id number] 00:00:00 Test Item Value Reference Range Interpretation Comments CULTURE, URINE (test SPECIMEN NUMBER: code = 70809) [id number] CULTURE, [id number] 00:00:00 Test Item Value Reference Range Interpretation Comments CULTURE, URINE (test SPECIMEN NUMBER: code = 99454) [id number] CULTURE, [id number] 00:00:00 Test Item Value Reference Range Interpretation Comments CULTURE, URINE (test SPECIMEN NUMBER: code = 87698) [id number] CULTURE, [id number] 00:00:00 Test Item Value Reference Range Interpretation Comments CULTURE, URINE (test SPECIMEN NUMBER: code = 29902) [id number] CULTURE, [id number] 00:00:00 Test Item Value Reference Range Interpretation Comments CULTURE, URINE (test SPECIMEN NUMBER: code = 87092) [id number] CULTURE, [id number] 00:00:00 Test Item Value Reference Range Interpretation Comments CULTURE, URINE (test SPECIMEN NUMBER: code = 63876) [id number] CULTURE, [id number] 00:00:00 Test Item Value Reference Range Interpretation Comments CULTURE, URINE (test SPECIMEN NUMBER: code = 00287) [id number] CULTURE, [id number] 00:00:00 Test Item Value Reference Range Interpretation Comments CULTURE, URINE (test SPECIMEN NUMBER: code = 67741) [id number] CULTURE, [id number] 00:00:00 Test Item Value Reference Range Interpretation Comments CULTURE, URINE (test SPECIMEN NUMBER: code = 80796) [id number] CULTURE, [id number] 00:00:00 Test Item Value Reference Range Interpretation Comments CULTURE, URINE (test SPECIMEN NUMBER: code = 28729) [id number] CULTURE, [id number] 00:00:00 Test Item Value Reference Range Interpretation Comments CULTURE, URINE (test SPECIMEN NUMBER: code = 53373) [id number] CULTURE, [id number] 00:00:00 Test Item Value Reference Range Interpretation Comments CULTURE, URINE (test SPECIMEN NUMBER: code = 24548) [id number] CULTURE, [id number] 00:00:00 Test Item Value Reference Range Interpretation Comments CULTURE, URINE (test SPECIMEN NUMBER: code = 80670) [id number]
[2022-10-02 11:30] LABS: Absolute Lymphocytes (CBC) 1.9 K/uL (0.7-4.9); Hematocrit 42.3 % (36.0-45.0); Lymphocytes % 12.1 % (15.3-44.8); MCV 92.8 fL (80-100); MPV 6.3 fL (7.6-11.3); RBC Red Blood Cell Count 4.56 M/uL (3.86-4.86)
[2022-10-02] MEDS ORDERED: ONDANSETRON 4 MG/2 ML VIAL ONE (11:36)
[2022-10-02 11:47] LABS: Albumin 3.8 g/dL (3.4-5.0); Bilirubin Total 0.2 mg/dL (0.2-1.0); Potassium 4.5 mEq/L (3.5-5.1); Protein, Total 8.2 g/dL (6.4-8.2)
--- NOTE | 2022-10-02 12:30 | ER ---
Nurse's Notes [facility] Name: Jaimie Amanda Age: 61 yrs Sex: Female : 1960 Arrival Date: 10/02/2022 Time: 11:00 Bed 15 Private MD: Diagnosis: Presentation: 10/02 11:01 Chief complaint: EMS states: NAUSEA/VOMITING, FREQUENT H/O SAME. Coronavirus screen: At bp this time, the client does not indicate any symptoms associated with coronavirus-19. Ebola Screen: No symptoms or risks identified at this time. Initial Sepsis Screen: Does the patient meet any 2 criteria? HR > 90 bpm. No. Patient's initial sepsis screen is negative. Does the patient have a suspected source of infection? No. Patient's initial sepsis screen is negative. Risk Assessment: Do you want to hurt yourself or someone else? Patient reports no desire to harm self or others. Onset of symptoms was October 02, 2022. Care prior to arrival: Medication(s) given: zofran 4 mg. 11:01 Method Of Arrival: EMS: [facility] bp 11:01 Acuity: ZHEN 3 bp Triage Assessment: 11:03 General: Appears in no apparent distress. Behavior is appropriate for age. Pain: bp Complains of pain in abdomen. EENT: No deficits noted. Neuro: No deficits noted. Cardiovascular: Rhythm is sinus rhythm. Respiratory: No deficits noted. GI: Reports nausea, vomiting. : No signs and/or symptoms were reported regarding the genitourinary system. Derm: No deficits noted. Musculoskeletal: No deficits noted. Historical: - Allergies: 11:03 hydrochlorothiazide; bp - PMHx: 11:03 Anxiety; Chronic Abdominal Pain; Hypertensive disorder; Hypothyroidism; low NA; NIDDM; bp - PSHx: 11:03 Thyroidectomy; bp - Immunization history:: Adult Immunizations up to date. - Social history:: Smoking status: Patient reports the use of cigarette tobacco products, unknown amount. Screenin:04 [facility] ED Fall Risk Assessment (Adult) History of falling in the last 3 months, bp including since admission No falls in past 3 months (0 pts). Abuse screen: Denies threats or abuse. Denies injuries from another. Nutritional screening: No deficits noted. Tuberculosis screening: No symptoms or risk factors identified. Assessment: 11:04 General: SEE TRIAGE NOTE. bp 13:04 Reassessment: Patient appears in no apparent distress at this time. Patient and/or db family updated on plan of care and expected duration. Pain level reassessed. PATIENT REFUSED TO BE ADMITTED. STATES WANTS TO LEAVE AND IS READY TO GO. PATIENT LEFT AMA AND SIGNED FORM. INFORMED OF RISKS OF LEAVING AND PATIENT VERBALIZED UNDERSTANDING. EDUCATED PATIENT OF IMPORTANCE OF RETURNING AND IMPORTANCE OF TAKING HOME MEDICATIONS. PATIENT VERBALIZED UNDERSTANDING. PATIENT AMBULATORY OUT OF ED. DR. ZAPATA NOTIFIED. Neuro: Level of Consciousness is awake, alert, obeys commands, Oriented to person, place, time, situation. Vital Signs: 11:01 BP 146 / 82; Pulse 101; Resp 18; Temp 98; Pulse Ox 96% ; bp 11:32 BP 163 / 80; Pulse 88; Resp 16; Pulse Ox 91% ; bp 12:00 BP 170 / 93; Pulse 78; Resp 16; Pulse Ox 95% ; db ED Course: 11:01 Patient arrived in ED. bp 11:03 Triage completed. bp 11:03 Zo Zapata MD is Attending Physician. sp3 11:04 Arm band placed on. bp 11:04 Patient has correct armband on for positive identification. Bed in low position. Call bp light in reach. Side rails up X2. 11:05 Sadiq Rosales, CATY is Primary Nurse. bp 11:30 Inserted saline lock: 22 gauge in right forearm, using aseptic technique. Blood bp collected. 12:29 Olegario Bettencourt is Hospitalizing Provider. sp3 13:04 Provided Education on: AMA AND RETURNING TO ED FOR CONTINUED CARE AND FOLLOW UP WITH db PROVIDER. 13:04 No provider procedures requiring assistance completed. IV discontinued, intact, db bleeding controlled, No redness/swelling at site. Administered Medications: 11:12 CANCELLED (MD Frey): HYDROmorphone IVP 1 mg IVP once sp3 11:32 Drug: Ondansetron IVP 4 mg Route: IVP; Site: right forearm; bp 13:08 Follow up: Response: No adverse reaction db Medication: 11:04 VIS not applicable for this client. bp Outcome: 12:30 Decision to Hospitalize by Provider. sp3 13:04 AMA AMA form signed db 13:04 Condition: stable 13:04 Instructed on the need for admit, AND AMA SIGNS AND SYMPTOMS AND TO RETURN TO ED 13:07 Patient left the ED. iw Signatures: Therese Logna RN RN iw Sadiq Rosales RN RN bp Zo Zapata MD MD sp3 Stephie Collazo RN RN db Corrections: (The following items were deleted from the chart) 13:07 13:04 Reassessment: Patient appears in no apparent distress at this time. Patient db and/or family updated on plan of care and expected duration. Pain level reassessed. PATIENT LEFT AMA AND SIGNED FORM. INFORMED OF RISKS OF LEAVING AND PATIENT VERBALIZED UNDERSTANDING. PATIENT AMBULATORY OUT OF ED. db
--- NOTE | 2022-10-02 12:30 | EDPHYS ---
Physician Documentation [facility] Name: Jaimie Amanda Age: 61 yrs Sex: Female : 1960 Arrival Date: 10/02/2022 Time: 11:00 Bed 15 Private MD: ED Physician Zo Zapata HPI: 10/02 11:31 This 61 yrs old Female presents to ER via EMS with complaints of Nausea. sp3 11:31 61-year-old female with history of chronic abdominal pain, hypertension, hypothyroidism sp3 with recent admission for hyponatremia presents to the ED with chief complaint continued abdominal pain and nausea. She denies any emesis she endorses emesis x2 without blood or mucus, and denies melena, GI bleed, or any other signs or symptoms at this time. On review of systems she denies headache, neck pain, chest pain, shortness of breath, syncope, near syncope, changes in urine output, or any other signs or symptoms at this time.. Historical: - Allergies: 11:03 hydrochlorothiazide; bp - PMHx: 11:03 Anxiety; Chronic Abdominal Pain; Hypertensive disorder; Hypothyroidism; low NA; NIDDM; bp - PSHx: 11:03 Thyroidectomy; bp - Immunization history:: Adult Immunizations up to date. - Social history:: Smoking status: Patient reports the use of cigarette tobacco products, unknown amount. ROS: 11:40 Constitutional: Negative for fever, chills, and weight loss, Eyes: Negative for injury, sp3 pain, redness, and discharge, ENT: Negative for injury, pain, and discharge, Neck: Negative for injury, pain, and swelling, Cardiovascular: Negative for chest pain, palpitations, and edema, Respiratory: Negative for shortness of breath, cough, wheezing, and pleuritic chest pain, Back: Negative for injury and pain, MS/Extremity: Negative for injury and deformity, Skin: Negative for injury, rash, and discoloration, Neuro: Negative for headache, weakness, numbness, tingling, and seizure, Psych: Negative for depression, anxiety, suicide ideation, homicidal ideation, and hallucinations, Allergy/Immunology: Negative for hives, rash, and allergies, Endocrine: Negative for neck swelling, polydipsia, polyuria, polyphagia, and marked weight changes. 11:40 All other systems are negative. Exam: 11:43 Constitutional: This is a well developed, well nourished patient who is awake, alert, sp3 and in no acute distress. Head/Face: Normocephalic, atraumatic. Eyes: Pupils equal round and reactive to light, extra-ocular motions intact. Lids and lashes normal. Conjunctiva and sclera are non-icteric and not injected. Cornea within normal limits. Periorbital areas with no swelling, redness, or edema. ENT: Nares patent. No nasal discharge, no septal abnormalities noted. External auditory canals are clear. Oropharynx with no redness, swelling, or masses, exudates, or evidence of obstruction, uvula midline. Mucous membranes moist. Neck: Trachea midline, no thyromegaly or masses palpated, and no cervical lymphadenopathy. Supple, full range of motion without nuchal rigidity, or vertebral point tenderness. No Meningismus. Chest/axilla: Normal chest wall appearance and motion. Nontender with no deformity. No lesions are appreciated. Cardiovascular: Regular rate and rhythm with a normal S1 and S2. No gallops, murmurs, or rubs. Normal PMI, no JVD. No pulse deficits. Respiratory: Lungs have equal breath sounds bilaterally, clear to auscultation and percussion. No rales, rhonchi or wheezes noted. No increased work of breathing, no retractions or nasal flaring. Back: No spinal tenderness. No costovertebral tenderness. Full range of motion. Skin: Warm, dry with normal turgor. Normal color with no rashes, no lesions, and no evidence of cellulitis. MS/ Extremity: Pulses equal, no cyanosis. Neurovascular intact. Full, normal range of motion. Neuro: Awake and alert, GCS 15, oriented to person, place, time, and situation. Cranial nerves II-XII grossly intact. Motor strength 5/5 in all extremities. Sensory grossly intact. Cerebellar exam normal. Normal gait. Psych: Awake, alert, with orientation to person, place and time. Behavior, mood, and affect are within normal limits. 11:43 Abdomen/GI: Mildly tender with no peritoneal signs, rebound or guarding.. Vital Signs: 11:01 BP 146 / 82; Pulse 101; Resp 18; Temp 98; Pulse Ox 96% ; bp 11:32 BP 163 / 80; Pulse 88; Resp 16; Pulse Ox 91% ; bp 12:00 BP 170 / 93; Pulse 78; Resp 16; Pulse Ox 95% ; db MDM: 11:03 Patient medically screened. sp3 11:44 Data reviewed: vital signs, nurses notes, EMS record, lab test result(s). ED course: sp3 61-year-old female with chronic abdominal pain and recent hyponatremia now with recurrent symptoms. We will check electrolytes and administer fluids as needed. Patient's abdomen has no peritoneal signs and is only mildly tender. I do not believe patient has an acute abdomen, sepsis, shock, or any other concerning pathology.. 12:28 ED course: Sodium at 126. We will start 50mL/h normal saline and admitted to sp3 hospitalist service.. 12:57 ED course: Patient wants to leave AGAINST MEDICAL ADVICE stating that she will take her sp3 sodium pills at home. She does not wish to stay in the hospital at this time. Vital signs are normal and we will discharge her at this time however I have instructed her to return if she changes her mind whatsoever.. 10/02 11:10 Order name: CBC with Diff; Complete Time: 12:22 sp3 10/02 11:10 Order name: CMP; Complete Time: 12:22 sp3 10/02 11:10 Order name: Lipase; Complete Time: 12:22 sp3 10/02 11:10 Order name: IV Saline Lock; Complete Time: 11:32 sp3 10/02 11:10 Order name: Labs collected and sent; Complete Time: 11:32 sp3 Administered Medications: 11:12 CANCELLED (MD Frey): HYDROmorphone IVP 1 mg IVP once sp3 11:32 Drug: Ondansetron IVP 4 mg Route: IVP; Site: right forearm; bp 13:08 Follow up: Response: No adverse reaction db Disposition Summary: 10/02/22 12:58 Left Against Medical Advice Location: Home(10/02/22 12:58) sp3 Problem: an acute exacerbation(10/02/22 12:58) sp3 Symptoms: have worsened(10/02/22 12:58) sp3 Condition: Stable(10/02/22 12:58) sp3 Followup: sp3 - With: Private Physician - When: Upon discharge from the Emergency Department - Reason: Recheck today's complaints Discharge Instructions: - Discharge Summary Sheet sp3 - Hyponatremia sp3 Signatures: Dispatcher [employer] EDSadiq Barney RN RN bp Zo Zapata MD MD sp3 Stephie Collazo, CATY RN db Corrections: (The following items were deleted from the chart) 11:12 11:10 HYDROmorphone IVP 1 mg IVP once ordered. sp3 sp3 12:58 12:30 Inpatient Admission sp3 sp3 12:58 12:30 Olegario Bettencourt sp3 sp3 12:58 12:30 Telemetry/MedSurg (Inpatient) sp3 sp3 12:58 12:30 Stable sp3 sp3 12:58 12:30 an acute exacerbation sp3 sp3 12:58 12:30 have worsened sp3 sp3 12:58 12:30 Standard sp3 sp3 12:58 12:30 sp3 sp3 12:58 12:30 Hyponatremia, chronic abdominal pain sp3 sp3
[2022-10-02] MEDS ORDERED: NA CHLORIDE 0.9% 1,000 ML ONE (13:07)
[2022-10-02 13:30] VITALS: TEMP 98
[2022-10-02 13:33] VITALS: BP 170/93; O2SAT 95
== END 2022-10-02 13:07 | disposition left against medical advice (07) ==
LOC: ER 11:00
DX: E87.1 Hypo-osmolality and hyponatremia (principal); E11.9 Type 2 diabetes mellitus without complications; I10 Essential (primary) hypertension; Z88.8 Allergy status to other drugs, medicaments and biological substances; Z72.0 Tobacco use
CPT/HCPCS: 85025; 36415; 83690; 80053; 96374; 99284; J2405; J7030

== ENCOUNTER 2022-10-28 04:44 | Emergency (ER) | payer OTHER ==
--- OUTSIDE RECORDS SUMMARY | 2022-10-28 04:57 | XMS REPORT | Continuity of Care Document ---
:1960 Author Organization [facility] t Address [address] [place] [address] [place] [id number] Care Team Providers Name Role Phone Sharpless Primary Care Physician MATT SIMPSON Attending Clinician Unavailable MATT SIMPSON Attending Clinician Unavailable Doctor Unassigned, Di Giorgio Attending Clinician Unavailable WALLY KRISHNAMURTHY Attending Clinician Unavailable Natacha Brewster Attending Clinician Payers Payer Name Policy Type Policy Number Effective Date Expiration Date Sarina castelan [facility] [id number] 2017 00:00:00 PLUS Problems This patient has [...] OPHEN INGREDI 07-27 ity of 00:00: [place] 00 Medical [...] alcohol (finding) Sex Assigned At [birth year] [facility] 00:00:00 00:00:00 [facility] Smoking Status Start Date Stop Date Source Smokes tobacco daily 2016-05-01 00:00:00 [facility] Medications Ordered Filled Start Stop [...] AT BEDTIME 00 Dose 2021-03 No Unknown 1-04 00:00: 00 TAKE 2021-03 No TABLET BY 1-04 MOUTH EVERY 00:00: SIX HOURS 00 NEEDED VENLAFAXINE 2021-03 No HCL ER 150 1-04 MG CP24 00:00: 00 CLONIDINE 2-1 No HYDROCHLORI 1-04 DE 0.3 MG 00:00: TABS 00 ZOLPIDEM 2-1 No TARTRATE 10 1-04 MG TABS 00:00: 00 ONDANSETRON 2-1 No 4 4MG Tablets 03-12 00:00: 00 TAKE 1 2-1 No TABLET BY 04 MOUTH DAILY 00:00: AT BEDTIME 00 TEMAZEPAM 2-1 No 30 MG CAPS 03-12 00:00: 00 CLONAZEPAM 2-0 No 1 MG [...] [facility]: nightly. [address] OXcarbazepi 2017-0 Yes 600mg Q.[id number] Take [address] [facility] [address] ne 2-23 [id number] [facility] (TRILEPTAL) 10:23: 3D mouth 3 Med ical 600 [facility] 59 (three) Center tablet times daily. PARoxetine 2017-0 Yes 40mg QD Take [address] (PAXIL) 40 2-23 by [facility] tablet 10:23: nightly. [address] 2017-0 Yes 600mg Q.[id number] Take [address] ne 2-23 [id number] [facility] (TRILEPTAL) 10:23: 3D mouth 3 Med ical 600 [facility] 59 (three) Center tablet times daily. PARoxetine 2017-0 Yes 40mg QD Take [address] (PAXIL) 40 2-23 [facility] 10:23: nightly. [address] 2017-0 Yes 600mg Q.[id number] Take [address] ne 2-23 [id number] [facility] (TRILEPTAL) 10:23: 3D mouth 3 Med ical 600 [facility] 59 (three) Center tablet times daily. PARoxetine 2017-0 Yes 40mg QD Take [address] (PAXIL) 40 2-23 by [facility] 10:23: nightly. [address] 2017-0 Yes 600mg Q.[id number] Take [address] ne 2-23 [id number] [facility] (TRILEPTAL) 10:23: 3D mouth 3 Med ical 600 [facility] 59 (three) Center tablet times daily. PARoxetine 2017-0 Yes 40mg QD Take [address] (PAXIL) 40 2-23 by [facility] tablet 10:23: nightly. [address] 2017-0 Yes 600mg Q.[id number] Take [address] ne 2-23 [id number] [facility] (TRILEPTAL) 10:23: 3D mouth 3 Med ical 600 [facility] 59 (three) Center tablet times daily. PARoxetine 2017-0 Yes 40mg QD Take [address] (PAXIL) 40 2-23 by [facility] tablet 10:23: nightly. [address] 2017-0 Yes 600mg Q.[id number] Take [address] ne 2-23 [id number] mg [facility] (TRILEPTAL) 10:23: 3D mouth 3 Med ical 600 [facility] 59 (three) Center tablet times daily. OXcarbazepi 2017-0 Yes 600mg Q.[id number] Take [address] ne 2-23 [id number] [facility] (TRILEPTAL) 10:23: 3D mouth 3 Med ical 600 MG 59 (three) Center tablet times daily. PARoxetine 2017-0 Yes 40mg QD Take [address] (PAXIL) 40 2-23 by [facility] tablet 10:23: nightly. [address] OXcarbazepi 2017-0 Yes 600mg Q.[id number] Take [address] ne 2-23 [id number] [facility] (TRILEPTAL) 10:23: 3D mouth 3 Med ical 600 [facility] 59 (three) Center tablet times daily. PARoxetine 2017-0 Yes 40mg QD Take [address] (PAXIL) 40 2-23 by [facility] tablet 10:23: nightly. [address] OXcarbazepi 2017-0 Yes 600mg Q.[id number] Take [address] ne 2-23 [id number] [facility] (TRILEPTAL) 10:23: 3D mouth 3 Med ical 600 [facility] 59 (three) Center tablet times daily. PARoxetine 2017-0 Yes 40mg QD Take [address] (PAXIL) 40 2-23 by [facility] 10:23: nightly. [address] PARoxetine 2017-0 Yes 40mg QD Take [address] (PAXIL) 40 2-23 by [facility] tablet 10:23: nightly. [address] OXcarbazepi 2017-0 Yes 600mg Q.[id number] Take [address] ne 2-23 [id number] [facility] (TRILEPTAL) 10:23: 3D mouth 3 Med ical 600 MG 59 (three) Center tablet times daily. OXcarbazepi 2017-0 Yes 600mg Q.[id number] Take [address] ne 2-23 [id number] [facility] (TRILEPTAL) 10:23: 3D mouth 3 Med ical 600 MG 59 (three) Center tablet times daily. PARoxetine 2017-0 Yes 40mg QD Take [address] (PAXIL) 40 2-23 by [facility] 10:23: nightly. [address] PARoxetine 2017-0 Yes 40mg QD Take [address] (PAXIL) 40 2-23 by [facility] tablet 10:23: nightly. [address] OXcarbazepi 2017-0 Yes 600mg Q.[id number] Take [address] ne 2-23 [id number] [facility] (TRILEPTAL) 10:23: 3D mouth 3 Med ical 600 MG 59 (three) Center tablet times daily. PARoxetine 2017-0 Yes 40mg QD Take [address] (PAXIL) 40 2-23 by [facility] tablet 10:23: nightly. [address] 2017-0 Yes 600mg Q.[id number] Take [address] ne 2-23 [id number] [facility] (TRILEPTAL) 10:23: 3D mouth 3 Med ical 600 MG 59 (three) Center tablet times daily. PARoxetine 2017-0 Yes 40mg QD Take [address] (PAXIL) 40 2-23 by [facility] tablet 10:23: nightly. [address] 2017-0 Yes 600mg Q.[id number] Take [address] ne 2-23 [id number] [facility] (TRILEPTAL) 10:23: 3D mouth 3 Med ical 600 MG 59 (three) Center tablet times daily. PARoxetine 2017-0 Yes 40mg QD Take [address] (PAXIL) 40 2-23 by [facility] tablet 10:23: nightly. [address] OXcarbazepi 2017-0 Yes 600mg Q.[id number] Take [address] ne 2-23 [id number] [facility] (TRILEPTAL) 10:23: 3D mouth 3 Med ical 600 MG 59 (three) Center tablet times daily. PARoxetine 2017-0 Yes 40mg QD Take [address] (PAXIL) 40 2-23 by [facility] tablet 10:23: nightly. [address] 2017-0 Yes 600mg Q.[id number] Take [address] ne 2-23 [id number] mg [facility] (TRILEPTAL) 10:23: 3D mouth 3 Med ical 600 MG 59 (three) Center tablet times daily. PARoxetine 2017-0 Yes 40mg QD Take [address] (PAXIL) 40 2-23 by [facility] tablet 10:23: nightly. [facility] [address] OXcarbazepi 2017-0 Yes 600mg Q.[id number] Take [address] ne 2-23 [id number] mg [facility] (TRILEPTAL) 10:23: 3D mouth 3 Med ical 600 MG 59 (three) Center tablet times daily. PARoxetine 2017-0 Yes 40mg QD Take [address] (PAXIL) 40 2-23 by [facility] tablet 10:23: nightly. [facility] [address] OXcarbazepi 2017-0 Yes 600mg Q.[id number] Take [address] ne 2-23 [id number] mg [facility] (TRILEPTAL) 10:23: 3D mouth 3 Med ical 600 MG 59 (three) Center tablet times daily. OXcarbazepi 2017-0 Yes 600mg Q.[id number] Take [address] ne 2-23 [id number] mg [facility] (TRILEPTAL) 10:23: 3D mouth 3 Med ical 600 MG 59 (three) Center tablet times daily. PARoxetine 2017-0 Yes 40mg QD Take [address] (PAXIL) 40 2-23 by [facility] tablet 10:23: nightly. [facility] [address] OXcarbazepi 2017-0 Yes 600mg Q.[id number] Take [address] ne 2-23 [id number] mg by [facility] (TRILEPTAL) 10:23: 3D mouth 3 Med ical 600 MG 59 (three) Center tablet times daily. PARoxetine 2017-0 Yes 40mg QD Take [address] (PAXIL) 40 2-23 by [facility] tablet 10:23: nightly. [facility] anjelica [address] OXcarbazepi 2017-0 Yes 600mg Q.[id number] Take [address] ne 2-23 [id number] mg [facility] (TRILEPTAL) 10:23: 3D mouth 3 Med ical 600 MG 59 (three) Center tablet times daily. PARoxetine 2017-0 Yes 40mg QD Take [address] (PAXIL) 40 2-23 by [facility] tablet 10:23: nightly. [address] PARoxetine 2017-0 Yes 40mg QD Take [address] (PAXIL) 40 2-23 by [facility] tablet 10:23: nightly. [address] OXcarbazepi 2017-0 Yes 600mg Q.[id number] Take [address] ne 2-23 [id number] mg [facility] (TRILEPTAL) 10:23: 3D mouth 3 Med ical 600 MG 59 (three) Center tablet times daily. PARoxetine 2017-0 Yes 40mg QD Take [address] (PAXIL) 40 2-23 by [facility] tablet 10:23: nightly. [address] 2017-0 Yes 600mg Q.[id number] Take [address] ne 2-23 [id number] mg [facility] (TRILEPTAL) 10:23: 3D mouth 3 Med ical 600 [facility] 59 (three) Center tablet times daily. PARoxetine 2017-0 Yes 40mg QD Take [address] (PAXIL) 40 2-23 by [facility] tablet 10:23: nightly. [address] 2017-0 Yes 600mg Q.[id number] Take [address] ne 2-23 [id number] mg [facility] (TRILEPTAL) 10:23: 3D mouth 3 Med ical 600 MG 59 (three) Center tablet times daily. PARoxetine 2017-0 Yes 40mg QD Take [address] (PAXIL) 40 2-23 by [facility] tablet 10:23: nightly. [address] OXcarbazepi 2017-0 Yes 600mg Q.[id number] Take [address] ne 2-23 [id number] mg [facility] (TRILEPTAL) 10:23: 3D mouth 3 Med ical 600 MG 59 (three) Center tablet times daily. PARoxetine 2017-0 Yes 40mg QD Take [address] (PAXIL) 40 2-23 by [facility] tablet 10:23: nightly. [address] 2017-0 Yes 600mg Q.[id number] Take [address] ne 2-23 [id number] mg [facility] (TRILEPTAL) 10:23: 3D mouth 3 Med ical 600 MG 59 (three) Center tablet times daily. PARoxetine 2017-0 Yes 40mg QD Take [address] (PAXIL) 40 2-23 by [facility] tablet 10:23: nightly. [address] OXcarbazepi 2017-0 Yes 600mg Q.[id number] Take [address] ne 2-23 [id number] mg [facility] (TRILEPTAL) 10:23: 3D mouth 3 Med ical 600 MG 59 (three) Center tablet times daily. PARoxetine 2017-0 Yes 40mg QD Take [address] (PAXIL) 40 2-23 by [facility] tablet 10:23: nightly. [address] OXcarbazepi 2017-0 Yes 600mg Q.[id number] Take [address] ne 2-23 [id number] mg by [facility] (TRILEPTAL) 10:23: 3D mouth 3 Med ical 600 MG 59 (three) Center tablet times daily. PARoxetine 2017-0 Yes 40mg QD Take [address] (PAXIL) 40 2-23 by [facility] tablet 10:23: nightly. [address] OXcarbazepi 2017-0 Yes 600mg Q.[id number] Take [address] ne 2-23 [id number] mg by [facility] (TRILEPTAL) 10:23: 3D mouth 3 Med ical 600 MG 59 (three) Center tablet times daily. OXcarbazepi 2017-0 Yes 600mg Q.[id number] Take [address] ne 2-23 [id number] mg by [facility] (TRILEPTAL) 10:23: 3D mouth 3 Med ical 600 MG 59 (three) Center tablet times daily. PARoxetine 2017-0 Yes 40mg QD Take [address] (PAXIL) 40 2-23 by [facility] tablet 10:23: nightly. [address] OXcarbazepi 2017-0 Yes 600mg Q.[id number] Take [address] ne 2-23 [id number] mg by [facility] (TRILEPTAL) 10:23: 3D mouth 3 Med ical 600 MG 59 (three) Center tablet times daily. PARoxetine 2017-0 Yes 40mg QD Take [address] (PAXIL) 40 2-23 by [facility] tablet 10:23: nightly. [address] 2017-0 Yes 600mg Q.[id number] Take [address] ne 2-23 [id number] mg by [facility] (TRILEPTAL) 10:23: 3D mouth 3 Med ical 600 MG 59 (three) Center tablet times daily. PARoxetine 2017-0 Yes 40mg QD Take [address] (PAXIL) 40 2-23 by [facility] tablet 10:23: nightly. [address] PARoxetine 2017-0 Yes 40mg QD Take [address] (PAXIL) 40 2-23 by [facility] tablet 10:23: nightly. [address] 2017-0 Yes 600mg Q.[id number] Take [address] ne 2-23 [id number] mg [facility] (TRILEPTAL) 10:23: 3D mouth 3 Med ical 600 MG 59 (three) Center tablet times daily. PARoxetine 2017-0 Yes 40mg QD Take [address] (PAXIL) 40 2-23 by [facility] tablet 10:23: nightly. [address] 2017-0 Yes 600mg Q.[id number] Take [address] ne 2-23 [id number] mg [facility] (TRILEPTAL) 10:23: 3D mouth 3 Med ical 600 MG 59 (three) Center tablet times daily. PARoxetine 2017-0 Yes 40mg QD Take [address] (PAXIL) 40 2-23 by [facility] tablet 10:23: nightly. [address] OXcarbazepi 2017-0 Yes 600mg Q.[id number] Take [address] ne 2-23 [id number] mg by [facility] (TRILEPTAL) 10:23: 3D mouth 3 Med ical 600 MG 59 (three) Center tablet times daily. PARoxetine 2017-0 Yes 40mg QD Take [address] (PAXIL) 40 2-23 by [facility] tablet 10:23: nightly. [address] OXcarbazepi 2017-0 Yes 600mg Q.[id number] Take [address] ne 2-23 [id number] mg by [facility] (TRILEPTAL) 10:23: 3D mouth 3 Med ical 600 MG 59 (three) Center tablet times daily. PARoxetine 2017-0 Yes 40mg QD Take [address] (PAXIL) 40 2-23 by [facility] tablet 10:23: nightly. [facility] [address] OXcarbazepi 2017-0 Yes 600mg Q.[id number] Take [address] ne 2-23 [id number] mg by [facility] (TRILEPTAL) 10:23: 3D mouth 3 Med ical 600 MG 59 (three) Center tablet times daily. PARoxetine 2017-0 Yes 40mg QD Take [address] (PAXIL) 40 2-23 by [facility] tablet 10:23: nightly. [facility] [address] OXcarbazepi 2017-0 Yes 600mg Q.[id number] Take [address] ne 2-23 [id number] mg by [facility] (TRILEPTAL) 10:23: 3D mouth 3 Med ical 600 MG 59 (three) Center tablet times daily. PARoxetine 2017-0 Yes 40mg QD Take [address] (PAXIL) 40 2-23 by [facility] tablet 10:23: nightly. [facility] [address] OXcarbazepi 2017-0 Yes 600mg Q.[id number] Take [address] ne 2-23 [id number] mg by [facility] (TRILEPTAL) 10:23: 3D mouth 3 Med ical 600 MG 59 (three) Center tablet times daily. PARoxetine 2017-0 Yes 40mg QD Take [address] (PAXIL) 40 2-23 by [facility] tablet 10:23: nightly. [facility] [address] OXcarbazepi 2017-0 Yes 600mg Q.[id number] Take [address] ne 2-23 [id number] mg by [facility] (TRILEPTAL) 10:23: 3D mouth 3 Med ical 600 MG 59 (three) Center tablet times daily. PARoxetine 2017-0 Yes 40mg QD Take [address] (PAXIL) 40 2-23 by [facility] tablet 10:23: nightly. [address] 2017-0 Yes 600mg Q.[id number] Take [address] ne 2-23 [id number] mg by [facility] (TRILEPTAL) 10:23: 3D mouth 3 Med ical 600 MG 59 (three) Center tablet times daily. PARoxetine 2017-0 Yes 40mg QD Take [address] (PAXIL) 40 2-23 by [facility] tablet 10:23: nightly. [address] OXcarbazepi 2017-0 Yes 600mg Q.[id number] Take [address] ne 2-23 [id number] mg by [facility] (TRILEPTAL) 10:23: 3D mouth 3 Med ical 600 MG 59 (three) Center tablet times daily. PARoxetine 2017-0 Yes 40mg QD Take [address] (PAXIL) 40 2-23 by [facility] tablet 10:23: nightly. [address] 2017-0 Yes 600mg Q.[id number] Take [address] ne 2-23 [id number] mg by [facility] (TRILEPTAL) 10:23: 3D mouth 3 Med ical 600 MG 59 (three) Center tablet times daily. PARoxetine 2017-0 Yes 40mg QD Take [address] (PAXIL) 40 2-23 by [facility] tablet 10:23: nightly. [address] 2017-0 Yes 600mg Q.[id number] Take [address] ne 2-23 [id number] mg by [facility] (TRILEPTAL) 10:23: 3D mouth 3 Med ical 600 MG 59 (three) Center tablet times daily. PARoxetine 2017-0 Yes 40mg QD Take [address] (PAXIL) 40 2-23 by [facility] tablet 10:23: nightly. [address] OXcarbazepi 2017-0 Yes 600mg Q.[id number] Take [address] ne 2-23 [id number] mg [facility] (TRILEPTAL) 10:23: 3D mouth 3 Med ical 600 MG 59 (three) Center tablet times daily. PARoxetine 2017-0 Yes 40mg QD Take [address] (PAXIL) 40 2-23 by [facility] tablet 10:23: nightly. [address] OXcarbazepi 2017-0 Yes 600mg Q.[id number] Take [address] ne 2-23 [id number] mg by [facility] (TRILEPTAL) 10:23: 3D mouth 3 Med ical 600 MG 59 (three) Center tablet times daily. OXcarbazepi 2017-0 Yes 600mg Q.[id number] Take [address] ne 2-23 [id number] mg by [facility] (TRILEPTAL) 10:23: 3D mouth 3 Med ical 600 MG 59 (three) Center tablet times daily. PARoxetine 2017-0 Yes 40mg QD Take [address] (PAXIL) 40 2-23 by [facility] tablet 10:23: nightly. [address] OXcarbazepi 2017-0 Yes 600mg Q.[id number] Take [address] ne 2-23 [id number] mg by [facility] (TRILEPTAL) 10:23: 3D mouth 3 Med ical 600 MG 59 (three) Center tablet times daily. PARoxetine 2017-0 Yes 40mg QD Take [address] (PAXIL) 40 2-23 by [facility] tablet 10:23: nightly. [address] OXcarbazepi 2017-0 Yes 600mg Q.[id number] Take [address] ne 2-23 [id number] mg by [facility] (TRILEPTAL) 10:23: 3D mouth 3 Med ical 600 [facility] 59 (three) Center tablet times daily. PARoxetine 2017-0 Yes 40mg QD Take [address] (PAXIL) 40 2-23 by [facility] tablet 10:23: nightly. [address] PARoxetine 2017-0 Yes 40mg QD Take [address] (PAXIL) 40 2-23 by [facility] tablet 10:23: nightly. [address] OXcarbazepi 2017-0 Yes 600mg Q.[id number] Take [address] ne 2-23 [id number] mg by [facility] (TRILEPTAL) 10:23: 3D mouth 3 Med ical 600 MG 59 (three) Center tablet times daily. PARoxetine 2017-0 Yes 40mg QD Take [address] (PAXIL) 40 2-23 by [facility] tablet 10:23: nightly. [facility] OXcarbazepi 2017-0 Yes 600mg Q.[id number] Take [address] ne 2-23 [id number] mg by [facility] (TRILEPTAL) 10:23: 3D mouth [...] Goal Plan of Care Note [code = 18755-1] Goal Plan of Care Note [code = 12202-3] Goal Plan of Care Note [code = 69910-5] Goal Plan of Care Note [code = 47927-2] Goal Plan of Care Note [code = 29576-3] Goal Plan of Care Note [code = 51434-9] Goal Plan of Care Note [code = 41025-3] Goal Plan of Care Note [code = 69752-0] Goal Plan of Care Note [code = 69051-4] Goal Plan of Care Note [code = 64496-0] Goal Plan of Care Note [code = 86382-0] Goal Plan of Care Note [code = 33432-4] Goal Plan of Care Note [code = 99232-0] Goal Plan of Care Note [code = 69118-3] Goal Plan of Care Note [code = 10910-8] Goal Plan of Care Note [code = 14048-9] Goal Plan of Care Note [code = 84195-5] Goal Plan of Care Note [code = 71155-2] Goal Plan of Care Note [code = 37541-7] Goal Plan of Care Note [code = 37956-1] Goal Plan of Care Note [code = 31160-6] Goal Plan of Care Note [code = 63282-6] Goal Plan of Care Note [code = 23187-1] Goal Plan of Care Note [code = 22413-7] Goal Plan of Care Note [code = 91668-7] Goal Plan of Care Note [code = 74091-6] Goal Plan of Care Note [code = 52090-2] Goal Plan of Care Note [code = 46122-2] Goal Plan of Care Note [code = 30360-4] Goal Plan of Care Note [code = 80826-1] Goal Plan of Care Note [code = 40360-8] Goal Plan of Care Note [code = 83366-9] Goal Plan of Care Note [code = 79759-3] Goal Plan of Care Note [code = 22901-5] Goal Plan of Care Note [code = 12723-0] Goal Plan of Care Note [code = 08927-0] Goal Plan of Care Note [code = 79698-6] Goal Plan of Care Note [code = 18672-0] Goal Plan of Care Note [code = 45705-8] Goal Plan of Care Note [code = 37247-3] Goal Plan of Care Note [code = 18372-9] Goal Plan of Care Note [code = 62550-3] Goal Plan of Care Note [code = 38668-4] Goal Plan of Care Note [code = 38076-5] Goal Plan of Care Note [code = 61138-6] Goal Plan of Care Note [code = 86942-4] Goal Plan of Care Note [code = 70101-1] Goal Plan of Care Note [code = 50060-7] Goal Plan of Care Note [code = 39426-8] Goal Plan of Care Note [code = 67282-3] Goal Plan of Care Note [code = 37580-9] Goal Plan of Care Note [code = 81587-7] Goal Plan of Care Note [code = 76235-9] Goal Plan of Care Note [code = 39228-7] Goal Plan of Care Note [code = 32688-4] Goal Plan of Care Note [code = 42226-1] Goal Plan of Care Note [code = 12638-3] Goal Plan of Care Note [code = 81288-5] Goal Plan of Care Note [code = 64371-7] Goal Plan of Care Note [code = 77315-9] Goal Plan of Care Note [code = 00201-0] Goal Plan of Care Note [code = 74640-3] Goal Plan of Care Note [code = 88620-1] Goal Plan of Care Note [code = 33374-1] Goal Plan of Care Note [code = 26760-2] Goal Plan of Care Note [code = 51233-0] Goal Plan of Care Note [code = 83387-9] Goal Plan of Care Note [code = 38842-1] Goal Plan of Care Note [code = 72080-5] Goal Plan of Care Note [code = 29328-6] Goal Plan of Care Note [code = 24411-3] Goal Plan of Care Note [code = 23001-7] Goal Plan of Care Note [code = 96554-2] Goal Plan of Care Note [code = 78688-2] Goal Plan of Care Note [code = 66975-9] Goal Plan of Care Note [code = 22210-0] Goal Plan of Care Note [code = 72144-9] Goal Plan of Care Note [code = 87820-5] Goal Plan of Care Note [code = 11204-6] Goal Plan of Care Note [code = 23213-5] Goal Plan of Care Note [code = 24165-0] Goal Plan of Care Note [code = 30482-5] Goal Plan of Care Note [code = 49215-8] Goal Plan of Care Note [code = 51315-3] Goal Plan of Care Note [code = 32310-1] Goal Plan of Care Note [code = 93992-5] Goal Plan of Care Note [code = 12227-3] Goal Plan of Care Note [code = 58275-3] Goal Plan of Care Note [code = 05357-8] Goal Plan of Care Note [code = 60891-9] Goal Plan of Care Note [code = 69498-5] Goal Plan of Care Note [code = 52576-4] Goal Plan of Care Note [code = 22604-3] Goal Plan of Care Note [code = 89110-3] Goal Plan of Care Note [code = 54512-1] Goal Plan of Care Note [code = 83200-1] Goal Plan of Care Note [code = 84601-9] Goal Plan of Care Note [code = 76177-8] Goal Plan of Care Note [code = 35991-4] Goal Plan of Care Note [code = 38215-2] Goal Plan of Care Note [code = 97586-0] Goal Plan of Care Note [code = 99695-7] Goal Plan of Care Note [code = 43052-0] Goal Plan of Care Note [code = 21955-8] Goal Plan of Care Note [code = 51288-6] Goal Plan of Care Note [code = 56731-1] Goal Plan of Care Note [code = 13720-5] Goal Plan of Care Note [code = 24451-8] Goal Plan of Care Note [code = 89586-1] Goal Plan of Care Note [code = 39010-9] Goal Plan of Care Note [code = 49766-2] Goal Plan of Care Note [code = 08499-1] Goal Plan of Care Note [code = 29937-0] Goal Plan of Care Note [code = 92619-5] Goal Plan of Care Note [code = 45919-1] Goal Plan of Care Note [code = 09167-7] Goal Plan of Care Note [code = 50072-2] Goal Plan of Care Note [code = 71481-2] Goal Plan of Care Note [code = 23387-5] Goal Plan of Care Note [code = 01356-8] Goal Plan of Care Note [code = 66538-2] Goal Plan of Care Note [code = 89538-9] Goal Plan of Care Note [code = 22878-2] Goal Plan of Care Note [code = 84155-9] Goal Plan of Care Note [code = 07544-1] Goal Plan of Care Note [code = 32502-0] Goal Plan of Care Note [code = 00007-8] Goal Plan of Care Note [code = 91277-2] Goal Plan of Care Note [code = 29936-7] Goal Plan of Care Note [code = 07282-6] Goal Plan of Care Note [code = 50596-5] Goal Plan of Care Note [code = 16667-9] Goal Plan of Care Note [code = 79799-1] Goal Plan of Care Note [code = 03349-0] Goal Plan of Care Note [code = 48055-5] Goal Plan of Care Note [code = 28900-5] Goal Plan of Care Note [code = 97908-9] Goal Plan of Care Note [code = 92927-9] Goal Plan of Care Note [code = 21588-8] Goal Plan of Care Note [code = 60391-1] Goal Plan of Care Note [code = 67821-2] Goal Plan of Care Note [code = 82282-3] Goal Plan of Care Note [code = 04046-3] Goal Plan of Care Note [code = 96204-1] Goal Plan of Care Note [code = 07327-2] Goal Plan of Care Note [code = 94690-8] Goal Plan of Care Note [code = 03217-0] Goal Plan of Care Note [code = 86678-6] Goal Plan of Care Note [code = 24056-0] Goal Plan of Care Note [code = 51415-2] Goal Plan of Care Note [code = 12030-7] Goal Plan of Care Note [code = 69586-2] Goal Plan of Care Note [code = 53449-4] Goal Plan of Care Note [code = 00536-8] Goal Plan of Care Note [code = 88214-8] Goal Plan of Care Note [code = 43894-2] Goal Plan of Care Note [code = 65303-9] Goal Plan of Care Note [code = 12638-0] Goal Plan of Care Note [code = 35740-8] Goal Plan of Care Note [code = 93881-8] Goal Plan of Care Note [code = 69962-8] Goal Plan of Care Note [code = 07887-0] Goal Plan of Care Note [code = 98677-3] Goal Plan of Care Note [code = 32513-4] Goal Plan of Care Note [code = 35263-0] Goal Plan of Care Note [code = 13180-2] Goal Plan of Care Note [code = 19410-7] Goal Plan of Care Note [code = 07887-4] Goal Plan of Care Note [code = 18634-4] Goal Plan of Care Note [code = 26400-8] Goal Plan of Care Note [code = 46780-0] Goal Plan of Care Note [code = 73867-3] Goal Plan of Care Note [code = 73739-7] Goal Plan of Care Note [code = 18585-5] Goal Plan of Care Note [code = 46936-2] Goal Plan of Care Note [code = 44255-2] Goal Plan of Care Note [code = 97129-6] Goal Plan of Care Note [code = 33726-3] Goal Plan of Care Note [code = 52686-9] Goal Plan of Care Note [code = 08163-9] Goal Plan of Care Note [code = 34581-9] Goal Plan of Care Note [code = 38717-5] Goal Plan of Care Note [code = 08922-4] Goal Plan of Care Note [code = 03090-9] Goal Plan of Care Note [code = 78661-8] Goal Plan of Care Note [code = 31028-7] Goal Plan of Care Note [code = 59974-3] Goal Plan of Care Note [code = 86852-6] Goal Plan of Care Note [code = 74376-2] Goal Plan of Care Note [code = 67562-1] Goal Plan of Care Note [code = 90696-7] Goal Plan of Care Note [code = 37598-4] Goal Plan of Care Note [code = 37249-8] Goal Plan of Care Note [code = 31648-7] Goal Plan of Care Note [code = 30467-1] Goal Plan of Care Note [code = 43530-8] Goal Plan of Care Note [code = 63196-1] Goal Plan of Care Note [code = 32237-2] Goal Plan of Care Note [code = 70271-9] Goal Plan of Care Note [code = 80647-7] Goal Plan of Care Note [code = 09041-8] Goal Plan of Care Note [code = 00510-7] Goal Plan of Care Note [code = 69513-6] Goal Plan of Care Note [code = 91020-1] Goal Plan of Care Note [code = 31940-5] Goal Plan of Care Note [code = 50606-1] Goal Plan of Care Note [code = 21676-8] Goal Plan of Care Note [code = 63364-2] Encounters Start End Encounter Admission Attending Care Care Encounter Source Date/Time Date/Time Type Type Clinicians Facility Department ID 2021-06-01 Outpatient [facility]MERLY [facility] [id number] [place] 01:36:29 [id number] [facility] 2022-05-24 2022-05-24 Outpatient SFA SFA [id number] Cristian 10:36:59 10:36:59 0318 F Jerman 2022-02-11 2022-02-11 Outpatient SFA SFA [id number] 022 Cristian 09:04:48 09:04:48 1206 F Jerman 2022-02-10 2022-02-10 Outpatient SFA SFA [id number] 022 Cristian 09:29:34 09:29:34 1205 F Jerman 2022-02-10 2022-02-10 Outpatient [id number]- [id number] 0b 3p74v7-9 00:00:00 00:00:00 Visit 4089-4cab 089-4cab-9 -3ay8-s8u bf5-t1l096 442fyhe63 bafa93 2022-01-10 2022-01-10 Outpatient SFA SFA [id number] 022 Cristian 09:16:14 09:16:14 1104 F Jerman 2022-01-10 2022-01-10 Outpatient q4wxvqh3- [id number] f2 accaa6-a 00:00:00 00:00:00 Visit aca9-4c83 ca9-4c83-a -w4io-aj0 7eb-bc13f3 7k8e525d1 f032f9 2021-12-19 2021-12-19 Outpatient SFA SFA [id number] 022 Cristian 16:11:31 16:11:31 1013 F Jerman 2021-12-19 2021-12-19 Outpatient [id number]- [id number] 466cae-a 00:00:00 00:00:00 Visit b052-963d 770-441f-a -adae-62b amelia-62bace okyuu68cj fd81af 2021-09-17 2021-09-17 Outpatient zeu1tpwn- [id number] aa z6hxdi-1 00:00:00 00:00:00 Visit 935a-4f50 35a-4f50-b -g92c-h7p 77d-c2ba85 i091526i1 1264a6 2020-08-03 2020-08-03 Outpatient MATT VÁSQUEZ [facility] [id number] [facility] 10:00:00 10:00:00 MATT SIMPSON [facility] 2020-07-25 2020-07-25 Orders Doctor [facility] [id number] 00:00:00 00:00:00 Only Unassigned, BK 350.1.13.10 Di Giorgio [facility] 4.2.7.2.686 [id number] 2019-09-26 2019-09-26 Outpatient Bertin KRISHNAMURTHY [facility] [id number] Univers 16:00:00 16:00:00 WALLY yeager [facility] 2018-10-21 2018-10-21 Telephone Nazanin, [facility] [id number] 00:00:00 00:00:00 Natacha Nguyen 350.1.13.10 [place] 4.2.7.2.686 Proffarzanehio [id number] nal [address] Building Results Test Description Test Time Test Comments Results Result Comments Source TSH, THIRD GENERATION 2022-05-26 02:57:49 Test Item Value Reference Range Interpretation Comme nts TSH, THIRD GENERATION (test code = 2821) 6.350 UIU/ML 0.400-4.100 H LIPID [id number] 01:09:34 Test Item Value Reference Range Interpretation [...] MOREINFORMATION , SEE CLIENT ANNOUNCE MENT AT [email or web address] RISK [email or web address] LDL/HDL 2.73 RATIO <3.22 [facility] has important (test code = 2238) pathology staff changes effecti ve 05/07/2022. New pathology staff will provide uninter rupted, excellent patie nt care and clinical consultation. S ee URL: [email or web address]. UNLE SS OTHERWISE INDIC ATED, ALL TESTING PER FORMED AT CLINICAL [facility] [employer] [address] [place] [address] ISIDRA SUH DIRECTOR: Andrew WHITLEY CONNOR NUMBER [id number] CAP ACCREDITATION N O. [id number] HEMOGLOBIN [id number] 03:17:24 Test Item Value Reference Range Interpretation Comments HEMOGLOBIN A1c (test 6.4 % 4.2-5.6 H [employer]IC AN DIABETES code = 93375) ASSOCIATION IDELINES FOR HGB A1C: PREDIABETES/INC REASED [...] TESTING OR LABORATORY C ONSULTATION. TSH, THIRD [id number] 05:15:49 Test Item Value Reference Range Interpretation Comments TSH, THIRD GENERATION (test code 2.080 UIU/ML 0.400-4.100 = 2821) HEMOGLOBIN [id number] 03:46:00 Test Item Value Reference Range Interpretation Comments HEMOGLOBIN A1c (test 6.6 % 4.2-5.6 H AMERIC AN DIABETES code = 53997) ASSOCIATION IDELINES FOR HGB A1C: PREDIABETES/INC REASED [...] INDICATED, ALL TESTING PER FORMED ATCLINICAL PATH [employer] [facility] [address] [place] [address] LABORATORY DIRE CTOR: DIANA RUSS M.D. CLIA NUMBER [id number] [facility]. [id number] LIPID [id number] 02:59:52 Test Item Value Reference Range Interpretation [...] MOREINFORMATION , SEE CLIENT ANNOUNCE MENT AT [email or web address] RISK RATIO LDL/HDL 4.02 RATIO <3.22 H (test code = 2238) [id number] 00:00:00 Test Item Value Reference Range Interpretation Comments TSH, THIRD GENERATION (test code 2.080 UIU/ML = 2821) [id number] 00:00:00 Test Item Value Reference Range Interpretation Comments TSH, THIRD GENERATION (test code 2.080 UIU/ML = 2821) [id number] 00:00:00 Test Item Value Reference Range Interpretation Comments TSH, THIRD GENERATION (test code 2.080 UIU/ML = 2821) LIPID [id number] 00:00:00 Test Item Value Reference Range Interpretation Comments CHOLESTEROL (test code = 2210) 292 MG/DL TRIGLYCERIDES (test code = 2232) 184 MG/DL HDL CHOLESTEROL (test code = 2220) 51 MG/DL CALC LDL CHOL (test code = 2237) 205 MG/DL RISK RATIO LDL/HDL (test code = 4.02 RATIO 2238) LIPID [id number] 00:00:00 Test Item Value Reference Range Interpretation Comments CHOLESTEROL (test code = 2210) 292 MG/DL TRIGLYCERIDES (test code = 2232) 184 MG/DL HDL CHOLESTEROL (test code = 2220) 51 MG/DL CALC LDL CHOL (test code = 2237) 205 MG/DL RISK RATIO LDL/HDL (test code = 4.02 RATIO 2238) HEMOGLOBIN [id number] 00:00:00 Test Item Value Reference Range Interpretation Comments HEMOGLOBIN A1c (test code = 68003) 6.6 % HEMOGLOBIN [id number] 00:00:00 Test Item Value Reference Range Interpretation Comments HEMOGLOBIN A1c (test code = 35670) 6.6 % HEMOGLOBIN [id number] 00:00:00 Test Item Value Reference Range Interpretation Comments HEMOGLOBIN A1c (test code = 71464) 6.6 % [id number] 00:00:00 Test Item Value Reference Range Interpretation Comments TSH, THIRD GENERATION (test code 2.080 UIU/ML = 2821) [id number] 00:00:00 Test Item Value Reference Range Interpretation Comments TSH, THIRD GENERATION (test code 2.080 UIU/ML = 2821) [id number] 00:00:00 Test Item Value Reference Range Interpretation Comments TSH, THIRD GENERATION (test code 2.080 UIU/ML = 2821) LIPID [id number] 00:00:00 Test Item Value Reference Range Interpretation Comments CHOLESTEROL (test code = 2210) 292 MG/DL TRIGLYCERIDES (test code = 2232) 184 MG/DL HDL CHOLESTEROL (test code = 2220) 51 MG/DL CALC LDL CHOL (test code = 2237) 205 MG/DL RISK RATIO LDL/HDL (test code = 4.02 RATIO 2238) LIPID [id number] 00:00:00 Test Item Value Reference Range Interpretation Comments CHOLESTEROL (test code = 2210) 292 MG/DL TRIGLYCERIDES (test code = 2232) 184 MG/DL HDL CHOLESTEROL (test code = 2220) 51 MG/DL CALC LDL CHOL (test code = 2237) 205 MG/DL RISK RATIO LDL/HDL (test code = 4.02 RATIO 2238) HEMOGLOBIN [id number] 00:00:00 Test Item Value Reference Range Interpretation Comments HEMOGLOBIN A1c (test code = 76816) 6.6 % HEMOGLOBIN [id number] 00:00:00 Test Item Value Reference Range Interpretation Comments HEMOGLOBIN A1c (test code = 79385) 6.6 % HEMOGLOBIN [id number] 00:00:00 Test Item Value Reference Range Interpretation Comments HEMOGLOBIN A1c (test code = 21872) 6.6 % [id number] 00:00:00 Test Item Value Reference Range Interpretation Comments TSH, THIRD GENERATION (test code 2.080 UIU/ML = 2821) [id number] 00:00:00 Test Item Value Reference Range Interpretation Comments TSH, THIRD GENERATION (test code 2.080 UIU/ML = 2821) LIPID [id number] 00:00:00 Test Item Value Reference Range Interpretation Comments CHOLESTEROL (test code = 2210) 292 MG/DL TRIGLYCERIDES (test code = 2232) 184 MG/DL HDL CHOLESTEROL (test code = 2220) 51 MG/DL CALC LDL CHOL (test code = 2237) 205 MG/DL RISK RATIO LDL/HDL (test code = 4.02 RATIO 2238) HEMOGLOBIN [id number] 00:00:00 Test Item Value Reference Range Interpretation Comments HEMOGLOBIN A1c (test code = 92555) 6.6 % HEMOGLOBIN [id number] 00:00:00 Test Item Value Reference Range Interpretation Comments HEMOGLOBIN A1c (test code = 14635) 6.6 % [id number] 00:00:00 Test Item Value Reference Range Interpretation Comments TSH, THIRD GENERATION (test code 2.080 UIU/ML = 2821) [id number] 00:00:00 Test Item Value Reference Range Interpretation Comments TSH, THIRD GENERATION (test code 2.080 UIU/ML = 2821) [id number] 00:00:00 Test Item Value Reference Range Interpretation Comments TSH, THIRD GENERATION (test code 2.080 UIU/ML = 2821) LIPID [id number] 00:00:00 Test Item Value Reference Range Interpretation Comments CHOLESTEROL (test code = 2210) 292 MG/DL TRIGLYCERIDES (test code = 2232) 184 MG/DL HDL CHOLESTEROL (test code = 2220) 51 MG/DL CALC LDL CHOL (test code = 2237) 205 MG/DL RISK RATIO LDL/HDL (test code = 4.02 RATIO 2238) LIPID [id number] 00:00:00 Test Item Value Reference Range Interpretation Comments CHOLESTEROL (test code = 2210) 292 MG/DL TRIGLYCERIDES (test code = 2232) 184 MG/DL HDL CHOLESTEROL (test code = 2220) 51 MG/DL CALC LDL CHOL (test code = 2237) 205 MG/DL RISK RATIO LDL/HDL (test code = 4.02 RATIO 2238) HEMOGLOBIN [id number] 00:00:00 Test Item Value Reference Range Interpretation Comments HEMOGLOBIN A1c (test code = 94551) 6.6 % HEMOGLOBIN [id number] 00:00:00 Test Item Value Reference Range Interpretation Comments HEMOGLOBIN A1c (test code = 31874) 6.6 % HEMOGLOBIN [id number] 00:00:00 Test Item Value Reference Range Interpretation Comments HEMOGLOBIN A1c (test code = 10370) 6.6 % HEMOGLOBIN [id number] 00:00:00 Test Item Value Reference Range Interpretation Comments HEMOGLOBIN A1c (test code = 08848) 6.8 % HEMOGLOBIN [id number] 00:00:00 Test Item Value Reference Range Interpretation Comments HEMOGLOBIN A1c (test code = 52523) 6.8 % HEMOGLOBIN [id number] 00:00:00 Test Item Value Reference Range Interpretation Comments HEMOGLOBIN A1c (test code = 07157) 6.8 % LIPID [id number] 00:00:00 Test Item Value Reference Range Interpretation Comments CHOLESTEROL (test code = 2210) 303 MG/DL TRIGLYCERIDES (test code = 2232) 191 MG/DL HDL CHOLESTEROL (test code = 2220) 61 MG/DL CALC LDL CHOL (test code = 2237) 205 MG/DL RISK RATIO LDL/HDL (test code = 3.36 RATIO 2238) LIPID [id number] 00:00:00 Test Item Value Reference Range Interpretation Comments CHOLESTEROL (test code = 2210) 303 MG/DL TRIGLYCERIDES (test code = 2232) 191 MG/DL HDL CHOLESTEROL (test code = 2220) 61 MG/DL CALC LDL CHOL (test code = 2237) 205 MG/DL RISK RATIO LDL/HDL (test code = 3.36 RATIO 2238) [id number] 00:00:00 Test Item Value Reference Range Interpretation Comments TSH, THIRD GENERATION (test code 0.769 UIU/ML = 2821) [id number] 00:00:00 Test Item Value Reference Range Interpretation Comments TSH, THIRD GENERATION (test code 0.769 UIU/ML = 2821) [id number] 00:00:00 Test Item Value Reference Range Interpretation Comments TSH, THIRD GENERATION (test code 0.769 UIU/ML = 2821) COMPREHENSIVE METABOLIC [id number] 00:00:00 Test Item Value Reference Range Interpretation Comments GLUCOSE (test code = 2217) 131 MG/DL BUN (test code = 2208) 13 MG/DL CREATININE (test code = 2214) 0.65 MG/DL eGFR AMER. (test code 113 ML/MIN/1.73 = 83978) eGFR NON- AMER. (test 97 ML/MIN/1.73 code = 94650) CALC BUN/CREAT (test code = 20 RATIO [...] code = 2219) 23 U/L COMPREHENSIVE METABOLIC [id number] 00:00:00 Test Item Value Reference Range Interpretation Comments GLUCOSE (test code = 2217) 131 MG/DL BUN (test code = 2208) 13 MG/DL CREATININE (test code = 2214) 0.65 MG/DL eGFR AMER. (test code 113 ML/MIN/1.73 = 00246) eGFR NON- AMER. (test 97 ML/MIN/1.73 code = 69659) CALC BUN/CREAT (test code = 20 RATIO [...] (test code = 2219) 23 U/L HEMOGLOBIN [id number] 00:00:00 Test Item Value Reference Range Interpretation Comments HEMOGLOBIN A1c (test code = 16027) 6.8 % HEMOGLOBIN [id number] 00:00:00 Test Item Value Reference Range Interpretation Comments HEMOGLOBIN A1c (test code = 09402) 6.8 % HEMOGLOBIN [id number] 00:00:00 Test Item Value Reference Range Interpretation Comments HEMOGLOBIN A1c (test code = 75170) 6.8 % LIPID [id number] 00:00:00 Test Item Value Reference Range Interpretation Comments CHOLESTEROL (test code = 2210) 303 MG/DL TRIGLYCERIDES (test code = 2232) 191 MG/DL HDL CHOLESTEROL (test code = 2220) 61 MG/DL CALC LDL CHOL (test code = 2237) 205 MG/DL RISK RATIO LDL/HDL (test code = 3.36 RATIO 2238) LIPID [id number] 00:00:00 Test Item Value Reference Range Interpretation Comments CHOLESTEROL (test code = 2210) 303 MG/DL TRIGLYCERIDES (test code = 2232) 191 MG/DL HDL CHOLESTEROL (test code = 2220) 61 MG/DL CALC LDL CHOL (test code = 2237) 205 MG/DL RISK RATIO LDL/HDL (test code = 3.36 RATIO 2238) [id number] 00:00:00 Test Item Value Reference Range Interpretation Comments TSH, THIRD GENERATION (test code 0.769 UIU/ML = 2821) [id number] 00:00:00 Test Item Value Reference Range Interpretation Comments TSH, THIRD GENERATION (test code 0.769 UIU/ML = 2821) [id number] 00:00:00 Test Item Value Reference Range Interpretation Comments TSH, THIRD GENERATION (test code 0.769 UIU/ML = 2821) COMPREHENSIVE METABOLIC [id number] 00:00:00 Test Item Value Reference Range Interpretation Comments GLUCOSE (test code = 2217) 131 MG/DL BUN (test code = 2208) 13 MG/DL CREATININE (test code = 2214) 0.65 MG/DL eGFR AMER. (test code 113 ML/MIN/1.73 = 15304) eGFR NON- AMER. (test 97 ML/MIN/1.73 code = 09019) CALC BUN/CREAT (test code = 20 RATIO [...] code = 2219) 23 U/L COMPREHENSIVE METABOLIC [id number] 00:00:00 Test Item Value Reference Range Interpretation Comments GLUCOSE (test code = 2217) 131 MG/DL BUN (test code = 2208) 13 MG/DL CREATININE (test code = 2214) 0.65 MG/DL eGFR AMER. (test code 113 ML/MIN/1.73 = 91798) eGFR NON- AMER. (test 97 ML/MIN/1.73 code = 19253) CALC BUN/CREAT (test code = 20 RATIO [...] (test code = 2219) 23 U/L HEMOGLOBIN [id number] 00:00:00 Test Item Value Reference Range Interpretation Comments HEMOGLOBIN A1c (test code = 04932) 6.8 % HEMOGLOBIN [id number] 00:00:00 Test Item Value Reference Range Interpretation Comments HEMOGLOBIN A1c (test code = 38048) 6.8 % LIPID [id number] 00:00:00 Test Item Value Reference Range Interpretation Comments CHOLESTEROL (test code = 2210) 303 MG/DL TRIGLYCERIDES (test code = 2232) 191 MG/DL HDL CHOLESTEROL (test code = 2220) 61 MG/DL CALC LDL CHOL (test code = 2237) 205 MG/DL RISK RATIO LDL/HDL (test code = 3.36 RATIO 2238) [id number] 00:00:00 Test Item Value Reference Range Interpretation Comments TSH, THIRD GENERATION (test code 0.769 UIU/ML = 2821) [id number] 00:00:00 Test Item Value Reference Range Interpretation Comments TSH, THIRD GENERATION (test code 0.769 UIU/ML = 2821) COMPREHENSIVE METABOLIC [id number] 00:00:00 Test Item Value Reference Range Interpretation Comments GLUCOSE (test code = 2217) 131 MG/DL BUN (test code = 2208) 13 MG/DL CREATININE (test code = 2214) 0.65 MG/DL eGFR AMER. (test code 113 ML/MIN/1.73 = 43299) eGFR NON- AMER. (test 97 ML/MIN/1.73 code = 82950) CALC BUN/CREAT (test code = 20 RATIO [...] (test code = 2219) 23 U/L HEMOGLOBIN [id number] 00:00:00 Test Item Value Reference Range Interpretation Comments HEMOGLOBIN A1c (test code = 70587) 6.8 % HEMOGLOBIN [id number] 00:00:00 Test Item Value Reference Range Interpretation Comments HEMOGLOBIN A1c (test code = 40122) 6.8 % HEMOGLOBIN [id number] 00:00:00 Test Item Value Reference Range Interpretation Comments HEMOGLOBIN A1c (test code = 42596) 6.8 % LIPID [id number] 00:00:00 Test Item Value Reference Range Interpretation Comments CHOLESTEROL (test code = 2210) 303 MG/DL TRIGLYCERIDES (test code = 2232) 191 MG/DL HDL CHOLESTEROL (test code = 2220) 61 MG/DL CALC LDL CHOL (test code = 2237) 205 MG/DL RISK RATIO LDL/HDL (test code = 3.36 RATIO 2238) LIPID [id number] 00:00:00 Test Item Value Reference Range Interpretation Comments CHOLESTEROL (test code = 2210) 303 MG/DL TRIGLYCERIDES (test code = 2232) 191 MG/DL HDL CHOLESTEROL (test code = 2220) 61 MG/DL CALC LDL CHOL (test code = 2237) 205 MG/DL RISK RATIO LDL/HDL (test code = 3.36 RATIO 2238) [id number] 00:00:00 Test Item Value Reference Range Interpretation Comments TSH, THIRD GENERATION (test code 0.769 UIU/ML = 2821) [id number] 00:00:00 Test Item Value Reference Range Interpretation Comments TSH, THIRD GENERATION (test code 0.769 UIU/ML = 2821) [id number] 00:00:00 Test Item Value Reference Range Interpretation Comments TSH, THIRD GENERATION (test code 0.769 UIU/ML = 2821) COMPREHENSIVE METABOLIC [id number] 00:00:00 Test Item Value Reference Range Interpretation Comments GLUCOSE (test code = 2217) 131 MG/DL BUN (test code = 2208) 13 MG/DL CREATININE (test code = 2214) 0.65 MG/DL eGFR AMER. (test code 113 ML/MIN/1.73 = 04714) eGFR NON- AMER. (test 97 ML/MIN/1.73 code = 37017) CALC BUN/CREAT (test code = 20 RATIO [...] code = 2219) 23 U/L COMPREHENSIVE METABOLIC [id number] 00:00:00 Test Item Value Reference Range Interpretation Comments GLUCOSE (test code = 2217) 131 MG/DL BUN (test code = 2208) 13 MG/DL CREATININE (test code = 2214) 0.65 MG/DL eGFR AMER. (test code 113 ML/MIN/1.73 = 15996) eGFR NON- AMER. (test 97 ML/MIN/1.73 code = 51834) CALC BUN/CREAT (test code = 20 RATIO [...] (test code = 2219) 23 U/L HEMOGLOBIN [id number] 00:00:00 Test Item Value Reference Range Interpretation Comments HEMOGLOBIN A1c (test code = 74569) 6.6 % HEMOGLOBIN [id number] 00:00:00 Test Item Value Reference Range Interpretation Comments HEMOGLOBIN A1c (test code = 91127) 6.6 % HEMOGLOBIN [id number] 00:00:00 Test Item Value Reference Range Interpretation Comments HEMOGLOBIN A1c (test code = 01634) 6.6 % LIPID [id number] 00:00:00 Test Item Value Reference Range Interpretation Comments CHOLESTEROL (test code = 2210) 261 MG/DL TRIGLYCERIDES (test code = 2232) 159 MG/DL HDL CHOLESTEROL (test code = 2220) 82 MG/DL CALC LDL CHOL (test code = 2237) 150 MG/DL RISK RATIO LDL/HDL (test code = 1.83 RATIO 2238) LIPID [id number] 00:00:00 Test Item Value Reference Range Interpretation Comments CHOLESTEROL (test code = 2210) 261 MG/DL TRIGLYCERIDES (test code = 2232) 159 MG/DL HDL CHOLESTEROL (test code = 2220) 82 MG/DL CALC LDL CHOL (test code = 2237) 150 MG/DL RISK RATIO LDL/HDL (test code = 1.83 RATIO 2238) COMPREHENSIVE METABOLIC [id number] 00:00:00 Test Item Value Reference Range Interpretation Comments GLUCOSE (test code = 2217) 144 MG/DL BUN (test code = 2208) 15 MG/DL CREATININE (test code = 2214) 0.85 MG/DL eGFR AMER. (test code 87 ML/MIN/1.73 = 66085) eGFR NON- AMER. (test 75 ML/MIN/1.73 code = 28223) CALC BUN/CREAT (test code = 18 RATIO [...] code = 2219) 50 U/L COMPREHENSIVE METABOLIC [id number] 00:00:00 Test Item Value Reference Range Interpretation Comments GLUCOSE (test code = 2217) 144 MG/DL BUN (test code = 2208) 15 MG/DL CREATININE (test code = 2214) 0.85 MG/DL eGFR AMER. (test code 87 ML/MIN/1.73 = 87587) eGFR NON- AMER. (test 75 ML/MIN/1.73 code = 61518) CALC BUN/CREAT (test code = 18 RATIO [...] THYROX. BIND. CAPAC. (test code 1.1 = 16723) T4 (THYROXINE) (test code = 4.3 UG/DL 281) CORRECTED T4 (FTI) (test code = 3.9 UG/DL 2820) TSH, THIRD GENERATION (test 18.900 UIU/ML code = 2821) THYROID II PROFILE (T3U, T4, T7, TSH)[id number] 00:00:00 Test Item Value Reference Range Interpretation Comments T-UPTAKE (test code = 2816) 30.2 % THYROX. BIND. CAPAC. (test code 1.1 = 95994) T4 (THYROXINE) (test code = 4.3 UG/DL 2819) CORRECTED T4 (FTI) (test code = 3.9 UG/DL 2820) TSH, THIRD GENERATION (test 18.900 UIU/ML code = 2821) HEMOGLOBIN [id number] 00:00:00 Test Item Value Reference Range Interpretation Comments HEMOGLOBIN A1c (test code = 33003) 6.6 % HEMOGLOBIN [id number] 00:00:00 Test Item Value Reference Range Interpretation Comments HEMOGLOBIN A1c (test code = 23529) 6.6 % HEMOGLOBIN [id number] 00:00:00 Test Item Value Reference Range Interpretation Comments HEMOGLOBIN A1c (test code = 39318) 6.6 % LIPID [id number] 00:00:00 Test Item Value Reference Range Interpretation Comments CHOLESTEROL (test code = 2210) 261 MG/DL TRIGLYCERIDES (test code = 2232) 159 MG/DL HDL CHOLESTEROL (test code = 2220) 82 MG/DL CALC LDL CHOL (test code = 2237) 150 MG/DL RISK RATIO LDL/HDL (test code = 1.83 RATIO 2238) LIPID [id number] 00:00:00 Test Item Value Reference Range Interpretation Comments CHOLESTEROL (test code = 2210) 261 MG/DL TRIGLYCERIDES (test code = 2232) 159 MG/DL HDL CHOLESTEROL (test code = 2220) 82 MG/DL CALC LDL CHOL (test code = 2237) 150 MG/DL RISK RATIO LDL/HDL (test code = 1.83 RATIO 2238) COMPREHENSIVE METABOLIC [id number] 00:00:00 Test Item Value Reference Range Interpretation Comments GLUCOSE (test code = 2217) 144 MG/DL BUN (test code = 2208) 15 MG/DL CREATININE (test code = 2214) 0.85 MG/DL eGFR AMER. (test code 87 ML/MIN/1.73 = 87871) eGFR NON- AMER. (test 75 ML/MIN/1.73 code = 29547) CALC BUN/CREAT (test code = 18 RATIO [...] code = 2219) 50 U/L COMPREHENSIVE METABOLIC [id number] 00:00:00 Test Item Value Reference Range Interpretation Comments GLUCOSE (test code = 2217) 144 MG/DL BUN (test code = 2208) 15 MG/DL CREATININE (test code = 2214) 0.85 MG/DL eGFR AMER. (test code 87 ML/MIN/1.73 = 70697) eGFR NON- AMER. (test 75 ML/MIN/1.73 code = 98555) CALC BUN/CREAT (test code = 18 RATIO [...] THYROX. BIND. CAPAC. (test code 1.1 = 02568) T4 (THYROXINE) (test code = 4.3 UG/DL 2818) CORRECTED T4 (FTI) (test code = 3.9 UG/DL 2820) TSH, THIRD GENERATION (test 18.900 UIU/ML code = 2821) THYROID II PROFILE (T3U, T4, T7, TSH)2020-05-23 00:00:00 Test Item Value Reference Range Interpretation Comments T-UPTAKE (test code = 2817) 30.2 % THYROX. BIND. CAPAC. (test code 1.1 = 96478) T4 (THYROXINE) (test code = 4.3 UG/DL 2819) CORRECTED T4 (FTI) (test code = 3.9 UG/DL 2820) TSH, THIRD GENERATION (test 18.900 UIU/ML code = 2821) HEMOGLOBIN [id number] 00:00:00 Test Item Value Reference Range Interpretation Comments HEMOGLOBIN A1c (test code = 27334) 6.6 % HEMOGLOBIN [id number] 00:00:00 Test Item Value Reference Range Interpretation Comments HEMOGLOBIN A1c (test code = 56723) 6.6 % LIPID [id number] 00:00:00 Test Item Value Reference Range Interpretation Comments CHOLESTEROL (test code = 2210) 261 MG/DL TRIGLYCERIDES (test code = 2232) 159 MG/DL HDL CHOLESTEROL (test code = 2220) 82 MG/DL CALC LDL CHOL (test code = 2237) 150 MG/DL RISK RATIO LDL/HDL (test code = 1.83 RATIO 2238) COMPREHENSIVE METABOLIC [id number] 00:00:00 Test Item Value Reference Range Interpretation Comments GLUCOSE (test code = 2217) 144 MG/DL BUN (test code = 2208) 15 MG/DL CREATININE (test code = 2214) 0.85 MG/DL eGFR AMER. (test code 87 ML/MIN/1.73 = 44459) eGFR NON- AMER. (test 75 ML/MIN/1.73 code = 30264) CALC BUN/CREAT (test code = 18 RATIO [...] THYROX. BIND. CAPAC. (test code 1.1 = 32396) T4 (THYROXINE) (test code = 4.3 UG/DL 281) CORRECTED T4 (FTI) (test code = 3.9 UG/DL 2820) TSH, THIRD GENERATION (test 18.900 UIU/ML code = 2821) HEMOGLOBIN [id number] 00:00:00 Test Item Value Reference Range Interpretation Comments HEMOGLOBIN A1c (test code = 14352) 6.6 % HEMOGLOBIN [id number] 00:00:00 Test Item Value Reference Range Interpretation Comments HEMOGLOBIN A1c (test code = 94786) 6.6 % HEMOGLOBIN [id number] 00:00:00 Test Item Value Reference Range Interpretation Comments HEMOGLOBIN A1c (test code = 98740) 6.6 % LIPID [id number] 00:00:00 Test Item Value Reference Range Interpretation Comments CHOLESTEROL (test code = 2210) 261 MG/DL TRIGLYCERIDES (test code = 2232) 159 MG/DL HDL CHOLESTEROL (test code = 2220) 82 MG/DL CALC LDL CHOL (test code = 2237) 150 MG/DL RISK RATIO LDL/HDL (test code = 1.83 RATIO 2238) LIPID [id number] 00:00:00 Test Item Value Reference Range Interpretation Comments CHOLESTEROL (test code = 2210) 261 MG/DL TRIGLYCERIDES (test code = 2232) 159 MG/DL HDL CHOLESTEROL (test code = 2220) 82 MG/DL CALC LDL CHOL (test code = 2237) 150 MG/DL RISK RATIO LDL/HDL (test code = 1.83 RATIO 2238) COMPREHENSIVE METABOLIC [id number] 00:00:00 Test Item Value Reference Range Interpretation Comments GLUCOSE (test code = 2217) 144 MG/DL BUN (test code = 2208) 15 MG/DL CREATININE (test code = 2214) 0.85 MG/DL eGFR AMER. (test code 87 ML/MIN/1.73 = 17167) eGFR NON- AMER. (test 75 ML/MIN/1.73 code = 32125) CALC BUN/CREAT (test code = 18 RATIO [...] code = 2219) 50 U/L COMPREHENSIVE METABOLIC [id number] 00:00:00 Test Item Value Reference Range Interpretation Comments GLUCOSE (test code = 2217) 144 MG/DL BUN (test code = 2208) 15 MG/DL CREATININE (test code = 2214) 0.85 MG/DL eGFR AMER. (test code 87 ML/MIN/1.73 = 72042) eGFR NON- AMER. (test 75 ML/MIN/1.73 code = 19285) CALC BUN/CREAT (test code = 18 RATIO [...] THYROX. BIND. CAPAC. (test code 1.1 = 16735) T4 (THYROXINE) (test code = 4.3 UG/DL 2819) CORRECTED T4 (FTI) (test code = 3.9 UG/DL 2820) TSH, THIRD GENERATION (test 18.900 UIU/ML code = 2821) THYROID II PROFILE (T3U, T4, T7, TSH)[id number] 00:00:00 Test Item Value Reference Range Interpretation Comments T-UPTAKE (test code = 2817) 30.2 % THYROX. BIND. CAPAC. (test code 1.1 = 84103) T4 (THYROXINE) (test code = 4.3 UG/DL 2819) CORRECTED T4 (FTI) (test code = 3.9 UG/DL 2820) TSH, THIRD GENERATION (test 18.900 UIU/ML code = 2821) HEMOGLOBIN [id number] 00:00:00 Test Item Value Reference Range Interpretation Comments HEMOGLOBIN A1c (test code = 40887) 6.7 % HEMOGLOBIN [id number] 00:00:00 Test Item Value Reference Range Interpretation Comments HEMOGLOBIN A1c (test code = 97670) 6.7 % HEMOGLOBIN [id number] 00:00:00 Test Item Value Reference Range Interpretation Comments HEMOGLOBIN A1c (test code = 10957) 6.7 % LIPID [id number] 00:00:00 Test Item Value Reference Range Interpretation Comments CHOLESTEROL (test code = 2210) 267 MG/DL TRIGLYCERIDES (test code = 2232) 137 MG/DL HDL CHOLESTEROL (test code = 2220) 48 MG/DL CALC LDL CHOL (test code = 2237) 192 MG/DL RISK RATIO LDL/HDL (test code = 4.00 RATIO 2238) LIPID [id number] 00:00:00 Test Item Value Reference Range Interpretation Comments CHOLESTEROL (test code = 2210) 267 MG/DL TRIGLYCERIDES (test code = 2232) 137 MG/DL HDL CHOLESTEROL (test code = 2220) 48 MG/DL CALC LDL CHOL (test code = 2237) 192 MG/DL RISK RATIO LDL/HDL (test code = 4.00 RATIO 2238) COMPREHENSIVE METABOLIC [id number] 00:00:00 Test Item Value Reference Range Interpretation Comments GLUCOSE (test code = 2217) 155 MG/DL BUN (test code = 2208) 14 MG/DL CREATININE (test code = 2214) 0.52 MG/DL eGFR AMER. (test code 122 ML/MIN/1.73 = 91393) eGFR NON- AMER. (test 105 ML/MIN/1.73 code = 81755) CALC BUN/CREAT (test code = 27 RATIO [...] code = 2219) 27 U/L COMPREHENSIVE METABOLIC [id number] 00:00:00 Test Item Value Reference Range Interpretation Comments GLUCOSE (test code = 2217) 155 MG/DL BUN (test code = 2208) 14 MG/DL CREATININE (test code = 2214) 0.52 MG/DL eGFR AMER. (test code 122 ML/MIN/1.73 = 65625) eGFR NON- AMER. (test 105 ML/MIN/1.73 code = 59541) CALC BUN/CREAT (test code = 27 RATIO [...] 2218) 17 U/L ALT (test code = 221) 27 U/L THYROID II PROFILE (T3U, T4, T7, TSH)2019 00:00:00 Test Item Value Reference Range Interpretation Comments T-UPTAKE (test code = 2817) 33.1 % THYROX. BIND. CAPAC. (test code 1.0 = 32355) T4 (THYROXINE) (test code = 4.7 UG/DL 2819) CORRECTED T4 (FTI) (test code = 4.7 UG/DL 2820) TSH, THIRD GENERATION (test code 0.201 UIU/ML = 2821) THYROID II PROFILE (T3U, T4, T7, TSH)2019 00:00:00 Test Item Value Reference Range Interpretation Comments T-UPTAKE (test code = 2817) 33.1 % THYROX. BIND. CAPAC. (test code 1.0 = 54736) T4 (THYROXINE) (test code = 4.7 UG/DL 2819) CORRECTED T4 (FTI) (test code = 4.7 UG/DL 2820) TSH, THIRD GENERATION (test code 0.201 UIU/ML = 2821) HEMOGLOBIN [id number] 00:00:00 Test Item Value Reference Range Interpretation Comments HEMOGLOBIN A1c (test code = 77336) 6.7 % HEMOGLOBIN [id number] 00:00:00 Test Item Value Reference Range Interpretation Comments HEMOGLOBIN A1c (test code = 08235) 6.7 % HEMOGLOBIN [id number] 00:00:00 Test Item Value Reference Range Interpretation Comments HEMOGLOBIN A1c (test code = 63230) 6.7 % LIPID [id number] 00:00:00 Test Item Value Reference Range Interpretation Comments CHOLESTEROL (test code = 2210) 267 MG/DL TRIGLYCERIDES (test code = 2232) 137 MG/DL HDL CHOLESTEROL (test code = 2220) 48 MG/DL CALC LDL CHOL (test code = 2237) 192 MG/DL RISK RATIO LDL/HDL (test code = 4.00 RATIO 2238) LIPID [id number] 00:00:00 Test Item Value Reference Range Interpretation Comments CHOLESTEROL (test code = 2210) 267 MG/DL TRIGLYCERIDES (test code = 2232) 137 MG/DL HDL CHOLESTEROL (test code = 2220) 48 MG/DL CALC LDL CHOL (test code = 2237) 192 MG/DL RISK RATIO LDL/HDL (test code = 4.00 RATIO 2238) COMPREHENSIVE METABOLIC [id number] 00:00:00 Test Item Value Reference Range Interpretation Comments GLUCOSE (test code = 2217) 155 MG/DL BUN (test code = 2208) 14 MG/DL CREATININE (test code = 2214) 0.52 MG/DL eGFR AMER. (test code 122 ML/MIN/1.73 = 78498) eGFR NON- AMER. (test 105 ML/MIN/1.73 code = 05658) CALC BUN/CREAT (test code = 27 RATIO [...] code = 2219) 27 U/L COMPREHENSIVE METABOLIC [id number] 00:00:00 Test Item Value Reference Range Interpretation Comments GLUCOSE (test code = 2217) 155 MG/DL BUN (test code = 2208) 14 MG/DL CREATININE (test code = 2214) 0.52 MG/DL eGFR AMER. (test code 122 ML/MIN/1.73 = 03176) eGFR NON- AMER. (test 105 ML/MIN/1.73 code = 80493) CALC BUN/CREAT (test code = 27 RATIO [...] THYROX. BIND. CAPAC. (test code 1.0 = 93878) T4 (THYROXINE) (test code = 4.7 UG/DL 2819) CORRECTED T4 (FTI) (test code = 4.7 UG/DL 2820) TSH, THIRD GENERATION (test code 0.201 UIU/ML = 2821) THYROID II PROFILE (T3U, T4, T7, TSH)2019 00:00:00 Test Item Value Reference Range Interpretation Comments T-UPTAKE (test code = 2816) 33.1 % THYROX. BIND. CAPAC. (test code 1.0 = 70163) T4 (THYROXINE) (test code = 4.7 UG/DL 2819) CORRECTED T4 (FTI) (test code = 4.7 UG/DL 2820) TSH, THIRD GENERATION (test code 0.201 UIU/ML = 2821) HEMOGLOBIN [id number] 00:00:00 Test Item Value Reference Range Interpretation Comments HEMOGLOBIN A1c (test code = 18801) 6.7 % HEMOGLOBIN [id number] 00:00:00 Test Item Value Reference Range Interpretation Comments HEMOGLOBIN A1c (test code = 15741) 6.7 % LIPID [id number] 00:00:00 Test Item Value Reference Range Interpretation Comments CHOLESTEROL (test code = 2210) 267 MG/DL TRIGLYCERIDES (test code = 2232) 137 MG/DL HDL CHOLESTEROL (test code = 2220) 48 MG/DL CALC LDL CHOL (test code = 2237) 192 MG/DL RISK RATIO LDL/HDL (test code = 4.00 RATIO 2238) COMPREHENSIVE METABOLIC [id number] 00:00:00 Test Item Value Reference Range Interpretation Comments GLUCOSE (test code = 2217) 155 MG/DL BUN (test code = 2208) 14 MG/DL CREATININE (test code = 2214) 0.52 MG/DL eGFR AMER. (test code 122 ML/MIN/1.73 = 40610) eGFR NON- AMER. (test 105 ML/MIN/1.73 code = 30337) CALC BUN/CREAT (test code = 27 RATIO [...] THYROX. BIND. CAPAC. (test code 1.0 = 26802) T4 (THYROXINE) (test code = 4.7 UG/DL 2819) CORRECTED T4 (FTI) (test code = 4.7 UG/DL 2820) TSH, THIRD GENERATION (test code 0.201 UIU/ML = 2821) HEMOGLOBIN [id number] 00:00:00 Test Item Value Reference Range Interpretation Comments HEMOGLOBIN A1c (test code = 91791) 6.7 % HEMOGLOBIN [id number] 00:00:00 Test Item Value Reference Range Interpretation Comments HEMOGLOBIN A1c (test code = 11065) 6.7 % HEMOGLOBIN [id number] 00:00:00 Test Item Value Reference Range Interpretation Comments HEMOGLOBIN A1c (test code = 09296) 6.7 % LIPID [id number] 00:00:00 Test Item Value Reference Range Interpretation Comments CHOLESTEROL (test code = 2210) 267 MG/DL TRIGLYCERIDES (test code = 2232) 137 MG/DL HDL CHOLESTEROL (test code = 2220) 48 MG/DL CALC LDL CHOL (test code = 2237) 192 MG/DL RISK RATIO LDL/HDL (test code = 4.00 RATIO 2238) LIPID [id number] 00:00:00 Test Item Value Reference Range Interpretation Comments CHOLESTEROL (test code = 2210) 267 MG/DL TRIGLYCERIDES (test code = 2232) 137 MG/DL HDL CHOLESTEROL (test code = 2220) 48 MG/DL CALC LDL CHOL (test code = 2237) 192 MG/DL RISK RATIO LDL/HDL (test code = 4.00 RATIO 2238) COMPREHENSIVE METABOLIC [id number] 00:00:00 Test Item Value Reference Range Interpretation Comments GLUCOSE (test code = 2217) 155 MG/DL BUN (test code = 2208) 14 MG/DL CREATININE (test code = 2214) 0.52 MG/DL eGFR AMER. (test code 122 ML/MIN/1.73 = 96740) eGFR NON- AMER. (test 105 ML/MIN/1.73 code = 81933) CALC BUN/CREAT (test code = 27 RATIO [...] code = 2219) 27 U/L COMPREHENSIVE METABOLIC [id number] 00:00:00 Test Item Value Reference Range Interpretation Comments GLUCOSE (test code = 2217) 155 MG/DL BUN (test code = 2208) 14 MG/DL CREATININE (test code = 2214) 0.52 MG/DL eGFR AMER. (test code 122 ML/MIN/1.73 = 48603) eGFR NON- AMER. (test 105 ML/MIN/1.73 code = 10017) CALC BUN/CREAT (test code = 27 RATIO [...] THYROX. BIND. CAPAC. (test code 1.0 = 24721) T4 (THYROXINE) (test code = 4.7 UG/DL 2819) CORRECTED T4 (FTI) (test code = 4.7 UG/DL 2820) TSH, THIRD GENERATION (test code 0.201 UIU/ML = 2821) THYROID II PROFILE (T3U, T4, T7, TSH)2019 00:00:00 Test Item Value Reference Range Interpretation Comments T-UPTAKE (test code = 2817) 33.1 % THYROX. BIND. CAPAC. (test code 1.0 = 60031) T4 (THYROXINE) (test code = 4.7 UG/DL 2819) CORRECTED T4 (FTI) (test code = 4.7 UG/DL 2820) TSH, THIRD GENERATION (test code 0.201 UIU/ML = 2821) SARS-CoV-2 (COVID-19) by RT-PCR (HIGH RISK)2019-09-18 00:00:00 Test Item Value Reference Range Interpretation Comments SARS-CoV-2 INTERPRETATION (test NEGATIVE code = 31147) SOURCE (test code = 93720) NOT SPECIFIED SARS-CoV-2 (COVID-19) by RT-PCR (HIGH RISK)2019-09-18 00:00:00 Test Item Value Reference Range Interpretation Comments SARS-CoV-2 INTERPRETATION (test NEGATIVE code = 85127) SOURCE (test code = 05301) NOT SPECIFIED SARS-CoV-2 (COVID-19) by RT-PCR (HIGH RISK)2019-09-18 00:00:00 Test Item Value Reference Range Interpretation Comments SARS-CoV-2 INTERPRETATION (test NEGATIVE code = 91013) SOURCE (test code = 53504) NOT SPECIFIED SARS-CoV-2 (COVID-19) by RT-PCR (HIGH RISK)2019-09-18 00:00:00 Test Item Value Reference Range Interpretation Comments SARS-CoV-2 INTERPRETATION (test NEGATIVE code = 06163) SOURCE (test code = 24926) NOT SPECIFIED SARS-CoV-2 (COVID-19) by RT-PCR (HIGH RISK)2019-09-18 00:00:00 Test Item Value Reference Range Interpretation Comments SARS-CoV-2 INTERPRETATION (test NEGATIVE code = 06567) SOURCE (test code = 05263) NOT SPECIFIED SARS-CoV-2 (COVID-19) by RT-PCR (HIGH RISK)2019-09-18 00:00:00 Test Item Value Reference Range Interpretation Comments SARS-CoV-2 INTERPRETATION (test NEGATIVE code = 39603) SOURCE (test code = 67906) NOT SPECIFIED SARS-CoV-2 (COVID-19) by RT-PCR (HIGH RISK)2019-09-18 00:00:00 Test Item Value Reference Range Interpretation Comments SARS-CoV-2 INTERPRETATION (test NEGATIVE code = 14468) SOURCE (test code = 35859) NOT SPECIFIED [id number] 00:00:00 Test Item Value Reference Range Interpretation Comments TSH, THIRD GENERATION (test code 2.490 UIU/ML = 2821) [id number] 00:00:00 Test Item Value Reference Range Interpretation Comments TSH, THIRD GENERATION (test code 2.490 UIU/ML = 2821) [id number] 00:00:00 Test Item Value Reference Range Interpretation Comments TSH, THIRD GENERATION (test code 2.490 UIU/ML = 2821) HEMOGLOBIN [id number] 00:00:00 Test Item Value Reference Range Interpretation Comments HEMOGLOBIN A1c (test code = 42555) 6.4 % HEMOGLOBIN [id number] 00:00:00 Test Item Value Reference Range Interpretation Comments HEMOGLOBIN A1c (test code = 90520) 6.4 % HEMOGLOBIN [id number] 00:00:00 Test Item Value Reference Range Interpretation Comments HEMOGLOBIN A1c (test code = 21001) 6.4 % COMPREHENSIVE METABOLIC [id number] 00:00:00 Test Item Value Reference Range Interpretation Comments GLUCOSE (test code = 2217) 206 MG/DL BUN (test code = 2208) 23 MG/DL CREATININE (test code = 2214) 0.67 MG/DL eGFR AMER. (test code 112 ML/MIN/1.73 = 73144) eGFR NON- AMER. (test 97 ML/MIN/1.73 code = 47503) CALC BUN/CREAT (test code = 34 RATIO [...] code = 2219) 25 U/L COMPREHENSIVE METABOLIC [id number] 00:00:00 Test Item Value Reference Range Interpretation Comments GLUCOSE (test code = 2217) 206 MG/DL BUN (test code = 2208) 23 MG/DL CREATININE (test code = 2214) 0.67 MG/DL eGFR AMER. (test code 112 ML/MIN/1.73 = 22757) eGFR NON- AMER. (test 97 ML/MIN/1.73 code = 41286) CALC BUN/CREAT (test code = 34 RATIO [...] ALT (test code = 2219) 25 U/L [id number] 00:00:00 Test Item Value Reference Range Interpretation Comments TSH, THIRD GENERATION (test code 2.490 UIU/ML = 2821) [id number] 00:00:00 Test Item Value Reference Range Interpretation Comments TSH, THIRD GENERATION (test code 2.490 UIU/ML = 2821) [id number] 00:00:00 Test Item Value Reference Range Interpretation Comments TSH, THIRD GENERATION (test code 2.490 UIU/ML = 2821) HEMOGLOBIN [id number] 00:00:00 Test Item Value Reference Range Interpretation Comments HEMOGLOBIN A1c (test code = 12947) 6.4 % HEMOGLOBIN [id number] 00:00:00 Test Item Value Reference Range Interpretation Comments HEMOGLOBIN A1c (test code = 61326) 6.4 % HEMOGLOBIN [id number] 00:00:00 Test Item Value Reference Range Interpretation Comments HEMOGLOBIN A1c (test code = 14949) 6.4 % COMPREHENSIVE METABOLIC [id number] 00:00:00 Test Item Value Reference Range Interpretation Comments GLUCOSE (test code = 2217) 206 MG/DL BUN (test code = 2208) 23 MG/DL CREATININE (test code = 2214) 0.67 MG/DL eGFR AMER. (test code 112 ML/MIN/1.73 = 65519) eGFR NON- AMER. (test 97 ML/MIN/1.73 code = 27487) CALC BUN/CREAT (test code = 34 RATIO [...] code = 2219) 25 U/L COMPREHENSIVE METABOLIC [id number] 00:00:00 Test Item Value Reference Range Interpretation Comments GLUCOSE (test code = 2217) 206 MG/DL BUN (test code = 2208) 23 MG/DL CREATININE (test code = 2214) 0.67 MG/DL eGFR AMER. (test code 112 ML/MIN/1.73 = 43401) eGFR NON- AMER. (test 97 ML/MIN/1.73 code = 83218) CALC BUN/CREAT (test code = 34 RATIO [...] ALT (test code = 2219) 25 U/L [id number] 00:00:00 Test Item Value Reference Range Interpretation Comments TSH, THIRD GENERATION (test code 2.490 UIU/ML = 2821) [id number] 00:00:00 Test Item Value Reference Range Interpretation Comments TSH, THIRD GENERATION (test code 2.490 UIU/ML = 2821) HEMOGLOBIN [id number] 00:00:00 Test Item Value Reference Range Interpretation Comments HEMOGLOBIN A1c (test code = 70931) 6.4 % HEMOGLOBIN [id number] 00:00:00 Test Item Value Reference Range Interpretation Comments HEMOGLOBIN A1c (test code = 68572) 6.4 % COMPREHENSIVE METABOLIC [id number] 00:00:00 Test Item Value Reference Range Interpretation Comments GLUCOSE (test code = 2217) 206 MG/DL BUN (test code = 2208) 23 MG/DL CREATININE (test code = 2214) 0.67 MG/DL eGFR AMER. (test code 112 ML/MIN/1.73 = 06198) eGFR NON- AMER. (test 97 ML/MIN/1.73 code = 80044) CALC BUN/CREAT (test code = 34 RATIO [...] ALT (test code = 2219) 25 U/L [id number] 00:00:00 Test Item Value Reference Range Interpretation Comments TSH, THIRD GENERATION (test code 2.490 UIU/ML = 2821) [id number] 00:00:00 Test Item Value Reference Range Interpretation Comments TSH, THIRD GENERATION (test code 2.490 UIU/ML = 2821) [id number] 00:00:00 Test Item Value Reference Range Interpretation Comments TSH, THIRD GENERATION (test code 2.490 UIU/ML = 2821) HEMOGLOBIN [id number] 00:00:00 Test Item Value Reference Range Interpretation Comments HEMOGLOBIN A1c (test code = 34646) 6.4 % HEMOGLOBIN [id number] 00:00:00 Test Item Value Reference Range Interpretation Comments HEMOGLOBIN A1c (test code = 61825) 6.4 % HEMOGLOBIN [id number] 00:00:00 Test Item Value Reference Range Interpretation Comments HEMOGLOBIN A1c (test code = 78110) 6.4 % COMPREHENSIVE METABOLIC [id number] 00:00:00 Test Item Value Reference Range Interpretation Comments GLUCOSE (test code = 2217) 206 MG/DL BUN (test code = 2208) 23 MG/DL CREATININE (test code = 2214) 0.67 MG/DL eGFR AMER. (test code 112 ML/MIN/1.73 = 88695) eGFR NON- AMER. (test 97 ML/MIN/1.73 code = 06775) CALC BUN/CREAT (test code = 34 RATIO [...] code = 2219) 25 U/L COMPREHENSIVE METABOLIC [id number] 00:00:00 Test Item Value Reference Range Interpretation Comments GLUCOSE (test code = 2217) 206 MG/DL BUN (test code = 2208) 23 MG/DL CREATININE (test code = 2214) 0.67 MG/DL eGFR AMER. (test code 112 ML/MIN/1.73 = 35911) eGFR NON- AMER. (test 97 ML/MIN/1.73 code = 31397) CALC BUN/CREAT (test code = 34 RATIO [...] = 2219) 25 U/L VAGINAL PATHOGENS DNA [id number] 00:00:00 Test Item Value Reference Range Interpretation Comments MARK SPECIES (test code = ) NEGATIVE G. VAGINALIS (test code = ) NEGATIVE T. VAGINALIS (test code = ) NEGATIVE VAGINAL PATHOGENS DNA [id number] 00:00:00 Test Item Value Reference Range Interpretation Comments MARK SPECIES (test code = ) NEGATIVE G. VAGINALIS (test code = 18483) NEGATIVE T. VAGINALIS (test code = 88550) NEGATIVE VAGINAL PATHOGENS DNA [id number] 00:00:00 Test Item Value Reference Range Interpretation Comments MARK SPECIES (test code = 48660) NEGATIVE G. VAGINALIS (test code = 93794) NEGATIVE T. VAGINALIS (test code = 44492) NEGATIVE VAGINAL PATHOGENS DNA [id number] 00:00:00 Test Item Value Reference Range Interpretation Comments MARK SPECIES (test code = 62567) NEGATIVE G. VAGINALIS (test code = 81101) NEGATIVE T. VAGINALIS (test code = 62423) NEGATIVE VAGINAL PATHOGENS DNA [id number] 00:00:00 Test Item Value Reference Range Interpretation Comments MARK SPECIES (test code = 13499) NEGATIVE G. VAGINALIS (test code = 92069) NEGATIVE T. VAGINALIS (test code = 21676) NEGATIVE VAGINAL PATHOGENS DNA [id number] 00:00:00 Test Item Value Reference Range Interpretation Comments MARK SPECIES (test code = 85215) NEGATIVE G. VAGINALIS (test code = 43643) NEGATIVE T. VAGINALIS (test code = 22812) NEGATIVE VAGINAL PATHOGENS DNA [id number] 00:00:00 Test Item Value Reference Range Interpretation Comments MARK SPECIES (test code = 39324) NEGATIVE G. VAGINALIS (test code = 08298) NEGATIVE T. VAGINALIS (test code = 87346) NEGATIVE HEMOGLOBIN A1c [ADDED]2018-12-01 00:00:00 Test Item Value Reference Range Interpretation Comments HEMOGLOBIN A1c (test code = 85194) 6.7 % HEMOGLOBIN A1c [ADDED]2018-12-01 00:00:00 Test Item Value Reference Range Interpretation Comments HEMOGLOBIN A1c (test code = 65245) 6.7 % HEMOGLOBIN A1c [ADDED]2018-12-01 00:00:00 Test Item Value Reference Range Interpretation Comments HEMOGLOBIN A1c (test code = 54507) 6.7 % COMPREHENSIVE METABOLIC PANEL [ADDED]2018-12-01 00:00:00 Test Item Value Reference Range Interpretation Comments GLUCOSE (test code = 2217) 136 MG/DL BUN (test code = 2208) 15 MG/DL CREATININE (test code = 2214) 0.64 MG/DL eGFR AMER. (test code 115 ML/MIN/1.73 = 47142) eGFR NON- AMER. (test 99 ML/MIN/1.73 code = 27322) CALC BUN/CREAT (test code = 23 RATIO [...] eGFR AMER. (test code 115 ML/MIN/1.73 = 44287) eGFR NON- AMER. (test 99 ML/MIN/1.73 code = 49162) CALC BUN/CREAT (test code = 23 RATIO [...] Interpretation Comments HEMOGLOBIN A1c (test code = 18844) 6.7 % HEMOGLOBIN A1c [ADDED]2018-12-01 00:00:00 Test Item Value Reference Range Interpretation Comments HEMOGLOBIN A1c (test code = 29038) 6.7 % HEMOGLOBIN A1c [ADDED]2018-12-01 00:00:00 Test Item Value Reference Range Interpretation Comments HEMOGLOBIN A1c (test code = 85705) 6.7 % COMPREHENSIVE METABOLIC PANEL [ADDED]2018-12-01 00:00:00 Test Item Value Reference Range Interpretation Comments GLUCOSE (test code = 2217) 136 MG/DL BUN (test code = 2208) 15 MG/DL CREATININE (test code = 2214) 0.64 MG/DL eGFR AMER. (test code 115 ML/MIN/1.73 = 58245) eGFR NON- AMER. (test 99 ML/MIN/1.73 code = 83882) CALC BUN/CREAT (test code = 23 RATIO [...] eGFR AMER. (test code 115 ML/MIN/1.73 = 22839) eGFR NON- AMER. (test 99 ML/MIN/1.73 code = 29650) CALC BUN/CREAT (test code = 23 RATIO [...] Interpretation Comments HEMOGLOBIN A1c (test code = 31247) 6.7 % HEMOGLOBIN A1c [ADDED]2018-12-01 00:00:00 Test Item Value Reference Range Interpretation Comments HEMOGLOBIN A1c (test code = 16479) 6.7 % COMPREHENSIVE METABOLIC PANEL [ADDED]2018-12-01 00:00:00 Test Item Value Reference Range Interpretation Comments GLUCOSE (test code = 2217) 136 MG/DL BUN (test code = 2208) 15 MG/DL CREATININE (test code = 2214) 0.64 MG/DL eGFR AMER. (test code 115 ML/MIN/1.73 = 32915) eGFR NON- AMER. (test 99 ML/MIN/1.73 code = 97958) CALC BUN/CREAT (test code = 23 RATIO [...] Interpretation Comments HEMOGLOBIN A1c (test code = 70374) 6.7 % HEMOGLOBIN A1c [ADDED]2018-12-01 00:00:00 Test Item Value Reference Range Interpretation Comments HEMOGLOBIN A1c (test code = 44262) 6.7 % HEMOGLOBIN A1c [ADDED]2018-12-01 00:00:00 Test Item Value Reference Range Interpretation Comments HEMOGLOBIN A1c (test code = 35195) 6.7 % COMPREHENSIVE METABOLIC PANEL [ADDED]2018-12-01 00:00:00 Test Item Value Reference Range Interpretation Comments GLUCOSE (test code = 2217) 136 MG/DL BUN (test code = 2208) 15 MG/DL CREATININE (test code = 2214) 0.64 MG/DL eGFR AMER. (test code 115 ML/MIN/1.73 = 84828) eGFR NON- AMER. (test 99 ML/MIN/1.73 code = 74803) CALC BUN/CREAT (test code = 23 RATIO [...] eGFR AMER. (test code 115 ML/MIN/1.73 = 65153) eGFR NON- AMER. (test 99 ML/MIN/1.73 code = 23097) CALC BUN/CREAT (test code = 23 RATIO [...] code 1.280 UIU/ML = 2821) CBC W/AUTO [id number] 00:00:00 Test Item Value Reference Range Interpretation [...] code = 1015) 346 K/UL CBC W/AUTO [id number] 00:00:00 Test Item Value Reference Range Interpretation [...] code = 1015) 346 K/UL CBC W/AUTO [id number] 00:00:00 Test Item Value Reference Range Interpretation [...] (test code = 1015) 346 K/UL HEMOGLOBIN [id number] 00:00:00 Test Item Value Reference Range Interpretation Comments HEMOGLOBIN A1c (test code = 54227) 5.9 % HEMOGLOBIN [id number] 00:00:00 Test Item Value Reference Range Interpretation Comments HEMOGLOBIN A1c (test code = 27107) 5.9 % HEMOGLOBIN [id number] 00:00:00 Test Item Value Reference Range Interpretation Comments HEMOGLOBIN A1c (test code = 68803) 5.9 % LIPID [id number] 00:00:00 Test Item Value Reference Range Interpretation Comments CHOLESTEROL (test code = 2210) 318 MG/DL TRIGLYCERIDES (test code = 2232) 263 MG/DL HDL CHOLESTEROL (test code = 2220) 51 MG/DL CALC LDL CHOL (test code = 2237) 214 MG/DL RISK RATIO LDL/HDL (test code = 4.20 RATIO 2238) LIPID [id number] 00:00:00 Test Item Value Reference Range Interpretation Comments CHOLESTEROL (test code = 2210) 318 MG/DL TRIGLYCERIDES (test code = 2232) 263 MG/DL HDL CHOLESTEROL (test code = 2220) 51 MG/DL CALC LDL CHOL (test code = 2237) 214 MG/DL RISK RATIO LDL/HDL (test code = 4.20 RATIO 2238) COMPREHENSIVE METABOLIC [id number] 00:00:00 Test Item Value Reference Range Interpretation Comments GLUCOSE (test code = 2217) 113 MG/DL BUN (test code = 2208) 18 MG/DL CREATININE (test code = 2214) 0.70 MG/DL eGFR AMER. (test code 111 ML/MIN/1.73 = 80708) eGFR NON- AMER. (test 96 ML/MIN/1.73 code = 85408) CALC BUN/CREAT (test code = 26 RATIO [...] code = 2219) 31 U/L COMPREHENSIVE METABOLIC [id number] 00:00:00 Test Item Value Reference Range Interpretation Comments GLUCOSE (test code = 2217) 113 MG/DL BUN (test code = 2208) 18 MG/DL CREATININE (test code = 2214) 0.70 MG/DL eGFR AMER. (test code 111 ML/MIN/1.73 = 94954) eGFR NON- AMER. (test 96 ML/MIN/1.73 code = 23408) CALC BUN/CREAT (test code = 26 RATIO [...] ALT (test code = 2219) 31 U/L [id number] 00:00:00 Test Item Value Reference Range Interpretation Comments TSH, THIRD GENERATION (test code 2.520 UIU/ML = 2821) [id number] 00:00:00 Test Item Value Reference Range Interpretation Comments TSH, THIRD GENERATION (test code 2.520 UIU/ML = 2821) [id number] 00:00:00 Test Item Value Reference Range Interpretation Comments TSH, THIRD GENERATION (test code 2.520 UIU/ML = 2821) CBC W/AUTO [id number] 00:00:00 Test Item Value Reference Range Interpretation [...] code = 1015) 346 K/UL CBC W/AUTO [id number] 00:00:00 Test Item Value Reference Range Interpretation [...] code = 1015) 346 K/UL CBC W/AUTO [id number] 00:00:00 Test Item Value Reference Range Interpretation [...] (test code = 1015) 346 K/UL HEMOGLOBIN [id number] 00:00:00 Test Item Value Reference Range Interpretation Comments HEMOGLOBIN A1c (test code = 87519) 5.9 % HEMOGLOBIN [id number] 00:00:00 Test Item Value Reference Range Interpretation Comments HEMOGLOBIN A1c (test code = 77621) 5.9 % HEMOGLOBIN [id number] 00:00:00 Test Item Value Reference Range Interpretation Comments HEMOGLOBIN A1c (test code = 94055) 5.9 % LIPID [id number] 00:00:00 Test Item Value Reference Range Interpretation Comments CHOLESTEROL (test code = 2210) 318 MG/DL TRIGLYCERIDES (test code = 2232) 263 MG/DL HDL CHOLESTEROL (test code = 2220) 51 MG/DL CALC LDL CHOL (test code = 2237) 214 MG/DL RISK RATIO LDL/HDL (test code = 4.20 RATIO 2238) LIPID [id number] 00:00:00 Test Item Value Reference Range Interpretation Comments CHOLESTEROL (test code = 2210) 318 MG/DL TRIGLYCERIDES (test code = 2232) 263 MG/DL HDL CHOLESTEROL (test code = 2220) 51 MG/DL CALC LDL CHOL (test code = 2237) 214 MG/DL RISK RATIO LDL/HDL (test code = 4.20 RATIO 2238) COMPREHENSIVE METABOLIC [id number] 00:00:00 Test Item Value Reference Range Interpretation Comments GLUCOSE (test code = 2217) 113 MG/DL BUN (test code = 2208) 18 MG/DL CREATININE (test code = 2214) 0.70 MG/DL eGFR AMER. (test code 111 ML/MIN/1.73 = 79065) eGFR NON- AMER. (test 96 ML/MIN/1.73 code = 53929) CALC BUN/CREAT (test code = 26 RATIO [...] code = 2219) 31 U/L COMPREHENSIVE METABOLIC [id number] 00:00:00 Test Item Value Reference Range Interpretation Comments GLUCOSE (test code = 2217) 113 MG/DL BUN (test code = 2208) 18 MG/DL CREATININE (test code = 2214) 0.70 MG/DL eGFR AMER. (test code 111 ML/MIN/1.73 = 08426) eGFR NON- AMER. (test 96 ML/MIN/1.73 code = 98430) CALC BUN/CREAT (test code = 26 RATIO [...] ALT (test code = 2219) 31 U/L [id number] 00:00:00 Test Item Value Reference Range Interpretation Comments TSH, THIRD GENERATION (test code 2.520 UIU/ML = 2821) [id number] 00:00:00 Test Item Value Reference Range Interpretation Comments TSH, THIRD GENERATION (test code 2.520 UIU/ML = 2821) [id number] 00:00:00 Test Item Value Reference Range Interpretation Comments TSH, THIRD GENERATION (test code 2.520 UIU/ML = 2821) CBC W/AUTO [id number] 00:00:00 Test Item Value Reference Range Interpretation [...] code = 1015) 346 K/UL CBC W/AUTO [id number] 00:00:00 Test Item Value Reference Range Interpretation [...] (test code = 1015) 346 K/UL HEMOGLOBIN [id number] 00:00:00 Test Item Value Reference Range Interpretation Comments HEMOGLOBIN A1c (test code = 34296) 5.9 % HEMOGLOBIN [id number] 00:00:00 Test Item Value Reference Range Interpretation Comments HEMOGLOBIN A1c (test code = 21367) 5.9 % LIPID [id number] 00:00:00 Test Item Value Reference Range Interpretation Comments CHOLESTEROL (test code = 2210) 318 MG/DL TRIGLYCERIDES (test code = 2232) 263 MG/DL HDL CHOLESTEROL (test code = 2220) 51 MG/DL CALC LDL CHOL (test code = 2237) 214 MG/DL RISK RATIO LDL/HDL (test code = 4.20 RATIO 2238) COMPREHENSIVE METABOLIC [id number] 00:00:00 Test Item Value Reference Range Interpretation Comments GLUCOSE (test code = 2217) 113 MG/DL BUN (test code = 2208) 18 MG/DL CREATININE (test code = 2214) 0.70 MG/DL eGFR AMER. (test code 111 ML/MIN/1.73 = 21435) eGFR NON- AMER. (test 96 ML/MIN/1.73 code = 55683) CALC BUN/CREAT (test code = 26 RATIO [...] ALT (test code = 2219) 31 U/L [id number] 00:00:00 Test Item Value Reference Range Interpretation Comments TSH, THIRD GENERATION (test code 2.520 UIU/ML = 2821) [id number] 00:00:00 Test Item Value Reference Range Interpretation Comments TSH, THIRD GENERATION (test code 2.520 UIU/ML = 2821) CBC W/AUTO [id number] 00:00:00 Test Item Value Reference Range Interpretation [...] code = 1015) 346 K/UL CBC W/AUTO [id number] 00:00:00 Test Item Value Reference Range Interpretation [...] code = 1015) 346 K/UL CBC W/AUTO [id number] 00:00:00 Test Item Value Reference Range Interpretation [...] (test code = 1015) 346 K/UL HEMOGLOBIN [id number] 00:00:00 Test Item Value Reference Range Interpretation Comments HEMOGLOBIN A1c (test code = 26518) 5.9 % HEMOGLOBIN [id number] 00:00:00 Test Item Value Reference Range Interpretation Comments HEMOGLOBIN A1c (test code = 39973) 5.9 % HEMOGLOBIN [id number] 00:00:00 Test Item Value Reference Range Interpretation Comments HEMOGLOBIN A1c (test code = 34493) 5.9 % LIPID [id number] 00:00:00 Test Item Value Reference Range Interpretation Comments CHOLESTEROL (test code = 2210) 318 MG/DL TRIGLYCERIDES (test code = 2232) 263 MG/DL HDL CHOLESTEROL (test code = 2220) 51 MG/DL CALC LDL CHOL (test code = 2237) 214 MG/DL RISK RATIO LDL/HDL (test code = 4.20 RATIO 2238) LIPID [id number] 00:00:00 Test Item Value Reference Range Interpretation Comments CHOLESTEROL (test code = 2210) 318 MG/DL TRIGLYCERIDES (test code = 2232) 263 MG/DL HDL CHOLESTEROL (test code = 2220) 51 MG/DL CALC LDL CHOL (test code = 2237) 214 MG/DL RISK RATIO LDL/HDL (test code = 4.20 RATIO 2238) COMPREHENSIVE METABOLIC [id number] 00:00:00 Test Item Value Reference Range Interpretation Comments GLUCOSE (test code = 2217) 113 MG/DL BUN (test code = 2208) 18 MG/DL CREATININE (test code = 2214) 0.70 MG/DL eGFR AMER. (test code 111 ML/MIN/1.73 = 29043) eGFR NON- AMER. (test 96 ML/MIN/1.73 code = 31235) CALC BUN/CREAT (test code = 26 RATIO [...] code = 2219) 31 U/L COMPREHENSIVE METABOLIC [id number] 00:00:00 Test Item Value Reference Range Interpretation Comments GLUCOSE (test code = 2217) 113 MG/DL BUN (test code = 2208) 18 MG/DL CREATININE (test code = 2214) 0.70 MG/DL eGFR AMER. (test code 111 ML/MIN/1.73 = 95803) eGFR NON- AMER. (test 96 ML/MIN/1.73 code = 22294) CALC BUN/CREAT (test code = 26 RATIO [...] ALT (test code = 2219) 31 U/L [id number] 00:00:00 Test Item Value Reference Range Interpretation Comments TSH, THIRD GENERATION (test code 2.520 UIU/ML = 2821) [id number] 00:00:00 Test Item Value Reference Range Interpretation Comments TSH, THIRD GENERATION (test code 2.520 UIU/ML = 2821) [id number] 00:00:00 Test Item Value Reference Range Interpretation Comments TSH, THIRD GENERATION (test code 2.520 UIU/ML = 2821) CULTURE, [id number] 00:00:00 Test Item Value Reference Range Interpretation Comments CULTURE, URINE (test SPECIMEN NUMBER: code = 83392) [id number] CULTURE, [id number] 00:00:00 Test Item Value Reference Range Interpretation Comments CULTURE, URINE (test SPECIMEN NUMBER: code = 53732) [id number] CULTURE, [id number] 00:00:00 Test Item Value Reference Range Interpretation Comments CULTURE, URINE (test SPECIMEN NUMBER: code = 36478) [id number] CULTURE, [id number] 00:00:00 Test Item Value Reference Range Interpretation Comments CULTURE, URINE (test SPECIMEN NUMBER: code = 15501) [id number] CULTURE, [id number] 00:00:00 Test Item Value Reference Range Interpretation Comments CULTURE, URINE (test SPECIMEN NUMBER: code = 92075) [id number] CULTURE, [id number] 00:00:00 Test Item Value Reference Range Interpretation Comments CULTURE, URINE (test SPECIMEN NUMBER: code = 72512) [id number] CULTURE, [id number] 00:00:00 Test Item Value Reference Range Interpretation Comments CULTURE, URINE (test SPECIMEN NUMBER: code = 36859) [id number] CULTURE, [id number] 00:00:00 Test Item Value Reference Range Interpretation Comments CULTURE, URINE (test SPECIMEN NUMBER: code = 24508) [id number] CULTURE, [id number] 00:00:00 Test Item Value Reference Range Interpretation Comments CULTURE, URINE (test SPECIMEN NUMBER: code = 24717) [id number] CULTURE, [id number] 00:00:00 Test Item Value Reference Range Interpretation Comments CULTURE, URINE (test SPECIMEN NUMBER: code = 08492) [id number] CULTURE, [id number] 00:00:00 Test Item Value Reference Range Interpretation Comments CULTURE, URINE (test SPECIMEN NUMBER: code = 74412) [id number] CULTURE, [id number] 00:00:00 Test Item Value Reference Range Interpretation Comments CULTURE, URINE (test SPECIMEN NUMBER: code = 27348) [id number] CULTURE, [id number] 00:00:00 Test Item Value Reference Range Interpretation Comments CULTURE, URINE (test SPECIMEN NUMBER: code = 59355) [id number] CULTURE, [id number] 00:00:00 Test Item Value Reference Range Interpretation Comments CULTURE, URINE (test SPECIMEN NUMBER: code = 86316) [id number] BASIC METABOLIC [id number] 00:00:00 Test Item Value Reference Range Interpretation Comments GLUCOSE (test code = 2217) 135 MG/DL BUN (test code = 2208) 25 MG/DL CREATININE (test code = 2214) 0.76 MG/DL eGFR AMER. (test code 101 ML/MIN/1.73 = 42842) eGFR NON- AMER. (test 87 ML/MIN/1.73 code = 75779) SODIUM (test code = 2231) 139 MEQ/L POTASSIUM (test code = 2228) 4.7 MEQ/L CHLORIDE (test code = 2215) 99 MEQ/L CARBON DIOXIDE (test code = 26 MEQ/L 2206) CALCIUM (test code = 2209) 9.4 MG/DL BASIC METABOLIC [id number] 00:00:00 Test Item Value Reference Range Interpretation Comments GLUCOSE (test code = 2217) 135 MG/DL BUN (test code = 2208) 25 MG/DL CREATININE (test code = 2214) 0.76 MG/DL eGFR AMER. (test code 101 ML/MIN/1.73 = 10612) eGFR NON- AMER. (test 87 ML/MIN/1.73 code = 53548) SODIUM (test code = 2231) 139 MEQ/L POTASSIUM (test code = 2228) 4.7 MEQ/L CHLORIDE (test code = 2215) 99 MEQ/L CARBON DIOXIDE (test code = 26 MEQ/L 2206) CALCIUM (test code = 2209) 9.4 MG/DL LIPID [id number] 00:00:00 Test Item Value Reference Range Interpretation Comments CHOLESTEROL (test code = 2210) 262 MG/DL TRIGLYCERIDES (test code = 2232) 300 MG/DL HDL CHOLESTEROL (test code = 2220) 36 MG/DL CALC LDL CHOL (test code = 2237) 166 MG/DL RISK RATIO LDL/HDL (test code = 4.61 RATIO 2238) LIPID [id number] 00:00:00 Test Item Value Reference Range Interpretation Comments CHOLESTEROL (test code = 2210) 262 MG/DL TRIGLYCERIDES (test code = 2232) 300 MG/DL HDL CHOLESTEROL (test code = 2220) 36 MG/DL CALC LDL CHOL (test code = 2237) 166 MG/DL RISK RATIO LDL/HDL (test code = 4.61 RATIO 2238) HEMOGLOBIN [id number] 00:00:00 Test Item Value Reference Range Interpretation Comments HEMOGLOBIN A1c (test code = 19535) 6.2 % HEMOGLOBIN [id number] 00:00:00 Test Item Value Reference Range Interpretation Comments HEMOGLOBIN A1c (test code = 50594) 6.2 % HEMOGLOBIN [id number] 00:00:00 Test Item Value Reference Range Interpretation Comments HEMOGLOBIN A1c (test code = 13289) 6.2 % [id number] 00:00:00 Test Item Value Reference Range Interpretation Comments TSH, THIRD GENERATION (test code 0.988 UIU/ML = 2821) [id number] 00:00:00 Test Item Value Reference Range Interpretation Comments TSH, THIRD GENERATION (test code 0.988 UIU/ML = 2821) [id number] 00:00:00 Test Item Value Reference Range Interpretation Comments TSH, THIRD GENERATION (test code 0.988 UIU/ML = 2821) BASIC METABOLIC [id number] 00:00:00 Test Item Value Reference Range Interpretation Comments GLUCOSE (test code = 2217) 135 MG/DL BUN (test code = 2208) 25 MG/DL CREATININE (test code = 2214) 0.76 MG/DL eGFR AMER. (test code 101 ML/MIN/1.73 = 70337) eGFR NON- AMER. (test 87 ML/MIN/1.73 code = 19004) SODIUM (test code = 2231) 139 MEQ/L POTASSIUM (test code = 2228) 4.7 MEQ/L CHLORIDE (test code = 2215) 99 MEQ/L CARBON DIOXIDE (test code = 26 MEQ/L 2206) CALCIUM (test code = 2209) 9.4 MG/DL BASIC METABOLIC [id number] 00:00:00 Test Item Value Reference Range Interpretation Comments GLUCOSE (test code = 2217) 135 MG/DL BUN (test code = 2208) 25 MG/DL CREATININE (test code = 2214) 0.76 MG/DL eGFR AMER. (test code 101 ML/MIN/1.73 = 38912) eGFR NON- AMER. (test 87 ML/MIN/1.73 code = 12259) SODIUM (test code = 2231) 139 MEQ/L POTASSIUM (test code = 2228) 4.7 MEQ/L CHLORIDE (test code = 2215) 99 MEQ/L CARBON DIOXIDE (test code = 26 MEQ/L 2206) CALCIUM (test code = 2209) 9.4 MG/DL LIPID [id number] 00:00:00 Test Item Value Reference Range Interpretation Comments CHOLESTEROL (test code = 2210) 262 MG/DL TRIGLYCERIDES (test code = 2232) 300 MG/DL HDL CHOLESTEROL (test code = 2220) 36 MG/DL CALC LDL CHOL (test code = 2237) 166 MG/DL RISK RATIO LDL/HDL (test code = 4.61 RATIO 2238) LIPID [id number] 00:00:00 Test Item Value Reference Range Interpretation Comments CHOLESTEROL (test code = 2210) 262 MG/DL TRIGLYCERIDES (test code = 2232) 300 MG/DL HDL CHOLESTEROL (test code = 2220) 36 MG/DL CALC LDL CHOL (test code = 2237) 166 MG/DL RISK RATIO LDL/HDL (test code = 4.61 RATIO 2238) HEMOGLOBIN [id number] 00:00:00 Test Item Value Reference Range Interpretation Comments HEMOGLOBIN A1c (test code = 52326) 6.2 % HEMOGLOBIN [id number] 00:00:00 Test Item Value Reference Range Interpretation Comments HEMOGLOBIN A1c (test code = 41555) 6.2 % HEMOGLOBIN [id number] 00:00:00 Test Item Value Reference Range Interpretation Comments HEMOGLOBIN A1c (test code = 15689) 6.2 % [id number] 00:00:00 Test Item Value Reference Range Interpretation Comments TSH, THIRD GENERATION (test code 0.988 UIU/ML = 2821) [id number] 00:00:00 Test Item Value Reference Range Interpretation Comments TSH, THIRD GENERATION (test code 0.988 UIU/ML = 2821) [id number] 00:00:00 Test Item Value Reference Range Interpretation Comments TSH, THIRD GENERATION (test code 0.988 UIU/ML = 2821) BASIC METABOLIC [id number] 00:00:00 Test Item Value Reference Range Interpretation Comments GLUCOSE (test code = 2217) 135 MG/DL BUN (test code = 2208) 25 MG/DL CREATININE (test code = 2214) 0.76 MG/DL eGFR AMER. (test code 101 ML/MIN/1.73 = 51865) eGFR NON- AMER. (test 87 ML/MIN/1.73 code = 71090) SODIUM (test code = 2231) 139 MEQ/L POTASSIUM (test code = 2228) 4.7 MEQ/L CHLORIDE (test code = 2215) 99 MEQ/L CARBON DIOXIDE (test code = 26 MEQ/L 2205) CALCIUM (test code = 2209) 9.4 MG/DL LIPID [id number] 00:00:00 Test Item Value Reference Range Interpretation Comments CHOLESTEROL (test code = 2210) 262 MG/DL TRIGLYCERIDES (test code = 2232) 300 MG/DL HDL CHOLESTEROL (test code = 2220) 36 MG/DL CALC LDL CHOL (test code = 2237) 166 MG/DL RISK RATIO LDL/HDL (test code = 4.61 RATIO 2238) HEMOGLOBIN [id number] 00:00:00 Test Item Value Reference Range Interpretation Comments HEMOGLOBIN A1c (test code = 08685) 6.2 % HEMOGLOBIN [id number] 00:00:00 Test Item Value Reference Range Interpretation Comments HEMOGLOBIN A1c (test code = 82456) 6.2 % [id number] 00:00:00 Test Item Value Reference Range Interpretation Comments TSH, THIRD GENERATION (test code 0.988 UIU/ML = 2821) [id number] 00:00:00 Test Item Value Reference Range Interpretation Comments TSH, THIRD GENERATION (test code 0.988 UIU/ML = 2821) BASIC METABOLIC [id number] 00:00:00 Test Item Value Reference Range Interpretation Comments GLUCOSE (test code = 2217) 135 MG/DL BUN (test code = 2208) 25 MG/DL CREATININE (test code = 2214) 0.76 MG/DL eGFR AMER. (test code 101 ML/MIN/1.73 = 46980) eGFR NON- AMER. (test 87 ML/MIN/1.73 code = 03265) SODIUM (test code = 2231) 139 MEQ/L POTASSIUM (test code = 2228) 4.7 MEQ/L CHLORIDE (test code = 2215) 99 MEQ/L CARBON DIOXIDE (test code = 26 MEQ/L 2206) CALCIUM (test code = 2209) 9.4 MG/DL BASIC METABOLIC [id number] 00:00:00 Test Item Value Reference Range Interpretation Comments GLUCOSE (test code = 2217) 135 MG/DL BUN (test code = 2208) 25 MG/DL CREATININE (test code = 2214) 0.76 MG/DL eGFR AMER. (test code 101 ML/MIN/1.73 = 06132) eGFR NON- AMER. (test 87 ML/MIN/1.73 code = 89704) SODIUM (test code = 2231) 139 MEQ/L POTASSIUM (test code = 2228) 4.7 MEQ/L CHLORIDE (test code = 2215) 99 MEQ/L CARBON DIOXIDE (test code = 26 MEQ/L 2206) CALCIUM (test code = 2209) 9.4 MG/DL LIPID [id number] 00:00:00 Test Item Value Reference Range Interpretation Comments CHOLESTEROL (test code = 2210) 262 MG/DL TRIGLYCERIDES (test code = 2232) 300 MG/DL HDL CHOLESTEROL (test code = 2220) 36 MG/DL CALC LDL CHOL (test code = 2237) 166 MG/DL RISK RATIO LDL/HDL (test code = 4.61 RATIO 2238) LIPID [id number] 00:00:00 Test Item Value Reference Range Interpretation Comments CHOLESTEROL (test code = 2210) 262 MG/DL TRIGLYCERIDES (test code = 2232) 300 MG/DL HDL CHOLESTEROL (test code = 2220) 36 MG/DL CALC LDL CHOL (test code = 2237) 166 MG/DL RISK RATIO LDL/HDL (test code = 4.61 RATIO 2238) HEMOGLOBIN [id number] 00:00:00 Test Item Value Reference Range Interpretation Comments HEMOGLOBIN A1c (test code = 00059) 6.2 % HEMOGLOBIN [id number] 00:00:00 Test Item Value Reference Range Interpretation Comments HEMOGLOBIN A1c (test code = 61059) 6.2 % HEMOGLOBIN [id number] 00:00:00 Test Item Value Reference Range Interpretation Comments HEMOGLOBIN A1c (test code = 49668) 6.2 % [id number] 00:00:00 Test Item Value Reference Range Interpretation Comments TSH, THIRD GENERATION (test code 0.988 UIU/ML = 2821) [id number] 00:00:00 Test Item Value Reference Range Interpretation Comments TSH, THIRD GENERATION (test code 0.988 UIU/ML = 2821) [id number] 00:00:00 Test Item Value Reference Range Interpretation Comments TSH, THIRD GENERATION (test code 0.988 UIU/ML = 2821) COMPREHENSIVE METABOLIC [id number] 00:00:00 Test Item Value Reference Range Interpretation Comments GLUCOSE (test code = 2217) 109 MG/DL BUN (test code = 2208) 25 MG/DL CREATININE (test code = 2214) 0.78 MG/DL eGFR AMER. (test code 98 ML/MIN/1.73 = 53389) eGFR NON- AMER. (test 84 ML/MIN/1.73 code = 59746) CALC BUN/CREAT (test code = 32 RATIO [...] code = 2219) 25 U/L COMPREHENSIVE METABOLIC [id number] 00:00:00 Test Item Value Reference Range Interpretation Comments GLUCOSE (test code = 2217) 109 MG/DL BUN (test code = 2208) 25 MG/DL CREATININE (test code = 2214) 0.78 MG/DL eGFR AMER. (test code 98 ML/MIN/1.73 = 41019) eGFR NON- AMER. (test 84 ML/MIN/1.73 code = 67252) CALC BUN/CREAT (test code = 32 RATIO [...] (test code = 2219) 25 U/L LIPID [id number] 00:00:00 Test Item Value Reference Range Interpretation Comments CHOLESTEROL (test code = 2210) 295 MG/DL TRIGLYCERIDES (test code = 2232) 218 MG/DL HDL CHOLESTEROL (test code = 2220) 46 MG/DL CALC LDL CHOL (test code = 2237) 205 MG/DL RISK RATIO LDL/HDL (test code = 4.47 RATIO 2238) LIPID [id number] 00:00:00 Test Item Value Reference Range Interpretation Comments CHOLESTEROL (test code = 2210) 295 MG/DL TRIGLYCERIDES (test code = 2232) 218 MG/DL HDL CHOLESTEROL (test code = 2220) 46 MG/DL CALC LDL CHOL (test code = 2237) 205 MG/DL RISK RATIO LDL/HDL (test code = 4.47 RATIO 2238) HEMOGLOBIN [id number] 00:00:00 Test Item Value Reference Range Interpretation Comments HEMOGLOBIN A1c (test code = 41197) 7.0 % HEMOGLOBIN [id number] 00:00:00 Test Item Value Reference Range Interpretation Comments HEMOGLOBIN A1c (test code = 06868) 7.0 % HEMOGLOBIN [id number] 00:00:00 Test Item Value Reference Range Interpretation Comments HEMOGLOBIN A1c (test code = 28101) 7.0 % [id number] 00:00:00 Test Item Value Reference Range Interpretation Comments TSH, THIRD GENERATION (test code 0.565 UIU/ML = 2821) [id number] 00:00:00 Test Item Value Reference Range Interpretation Comments TSH, THIRD GENERATION (test code 0.565 UIU/ML = 2821) [id number] 00:00:00 Test Item Value Reference Range Interpretation Comments TSH, THIRD GENERATION (test code 0.565 UIU/ML = 2821) COMPREHENSIVE METABOLIC [id number] 00:00:00 Test Item Value Reference Range Interpretation Comments GLUCOSE (test code = 2217) 109 MG/DL BUN (test code = 2208) 25 MG/DL CREATININE (test code = 2214) 0.78 MG/DL eGFR AMER. (test code 98 ML/MIN/1.73 = 15667) eGFR NON- AMER. (test 84 ML/MIN/1.73 code = 01498) CALC BUN/CREAT (test code = 32 RATIO [...] code = 2219) 25 U/L COMPREHENSIVE METABOLIC [id number] 00:00:00 Test Item Value Reference Range Interpretation Comments GLUCOSE (test code = 2217) 109 MG/DL BUN (test code = 2208) 25 MG/DL CREATININE (test code = 2214) 0.78 MG/DL eGFR AMER. (test code 98 ML/MIN/1.73 = 19204) eGFR NON- AMER. (test 84 ML/MIN/1.73 code = 05787) CALC BUN/CREAT (test code = 32 RATIO [...] (test code = 2219) 25 U/L LIPID [id number] 00:00:00 Test Item Value Reference Range Interpretation Comments CHOLESTEROL (test code = 2210) 295 MG/DL TRIGLYCERIDES (test code = 2232) 218 MG/DL HDL CHOLESTEROL (test code = 2220) 46 MG/DL CALC LDL CHOL (test code = 2237) 205 MG/DL RISK RATIO LDL/HDL (test code = 4.47 RATIO 2238) LIPID [id number] 00:00:00 Test Item Value Reference Range Interpretation Comments CHOLESTEROL (test code = 2210) 295 MG/DL TRIGLYCERIDES (test code = 2232) 218 MG/DL HDL CHOLESTEROL (test code = 2220) 46 MG/DL CALC LDL CHOL (test code = 2237) 205 MG/DL RISK RATIO LDL/HDL (test code = 4.47 RATIO 2238) HEMOGLOBIN [id number] 00:00:00 Test Item Value Reference Range Interpretation Comments HEMOGLOBIN A1c (test code = 72772) 7.0 % HEMOGLOBIN [id number] 00:00:00 Test Item Value Reference Range Interpretation Comments HEMOGLOBIN A1c (test code = 34809) 7.0 % HEMOGLOBIN [id number] 00:00:00 Test Item Value Reference Range Interpretation Comments HEMOGLOBIN A1c (test code = 14027) 7.0 % [id number] 00:00:00 Test Item Value Reference Range Interpretation Comments TSH, THIRD GENERATION (test code 0.565 UIU/ML = 2821) [id number] 00:00:00 Test Item Value Reference Range Interpretation Comments TSH, THIRD GENERATION (test code 0.565 UIU/ML = 2821) [id number] 00:00:00 Test Item Value Reference Range Interpretation Comments TSH, THIRD GENERATION (test code 0.565 UIU/ML = 2821) COMPREHENSIVE METABOLIC [id number] 00:00:00 Test Item Value Reference Range Interpretation Comments GLUCOSE (test code = 2217) 109 MG/DL BUN (test code = 2208) 25 MG/DL CREATININE (test code = 2214) 0.78 MG/DL eGFR AMER. (test code 98 ML/MIN/1.73 = 81743) eGFR NON- AMER. (test 84 ML/MIN/1.73 code = 64617) CALC BUN/CREAT (test code = 32 RATIO [...] (test code = 2219) 25 U/L LIPID [id number] 00:00:00 Test Item Value Reference Range Interpretation Comments CHOLESTEROL (test code = 2210) 295 MG/DL TRIGLYCERIDES (test code = 2232) 218 MG/DL HDL CHOLESTEROL (test code = 2220) 46 MG/DL CALC LDL CHOL (test code = 2237) 205 MG/DL RISK RATIO LDL/HDL (test code = 4.47 RATIO 2238) HEMOGLOBIN [id number] 00:00:00 Test Item Value Reference Range Interpretation Comments HEMOGLOBIN A1c (test code = 10771) 7.0 % HEMOGLOBIN [id number] 00:00:00 Test Item Value Reference Range Interpretation Comments HEMOGLOBIN A1c (test code = 01965) 7.0 % [id number] 00:00:00 Test Item Value Reference Range Interpretation Comments TSH, THIRD GENERATION (test code 0.565 UIU/ML = 2821) [id number] 00:00:00 Test Item Value Reference Range Interpretation Comments TSH, THIRD GENERATION (test code 0.565 UIU/ML = 2821) COMPREHENSIVE METABOLIC [id number] 00:00:00 Test Item Value Reference Range Interpretation Comments GLUCOSE (test code = 2217) 109 MG/DL BUN (test code = 2208) 25 MG/DL CREATININE (test code = 2214) 0.78 MG/DL eGFR AMER. (test code 98 ML/MIN/1.73 = 11788) eGFR NON- AMER. (test 84 ML/MIN/1.73 code = 43732) CALC BUN/CREAT (test code = 32 RATIO [...] code = 2219) 25 U/L COMPREHENSIVE METABOLIC [id number] 00:00:00 Test Item Value Reference Range Interpretation Comments GLUCOSE (test code = 2217) 109 MG/DL BUN (test code = 2208) 25 MG/DL CREATININE (test code = 2214) 0.78 MG/DL eGFR AMER. (test code 98 ML/MIN/1.73 = 73236) eGFR NON- AMER. (test 84 ML/MIN/1.73 code = 91843) CALC BUN/CREAT (test code = 32 RATIO [...] (test code = 2219) 25 U/L LIPID [id number] 00:00:00 Test Item Value Reference Range Interpretation Comments CHOLESTEROL (test code = 2210) 295 MG/DL TRIGLYCERIDES (test code = 2232) 218 MG/DL HDL CHOLESTEROL (test code = 2220) 46 MG/DL CALC LDL CHOL (test code = 2237) 205 MG/DL RISK RATIO LDL/HDL (test code = 4.47 RATIO 2238) LIPID [id number] 00:00:00 Test Item Value Reference Range Interpretation Comments CHOLESTEROL (test code = 2210) 295 MG/DL TRIGLYCERIDES (test code = 2232) 218 MG/DL HDL CHOLESTEROL (test code = 2220) 46 MG/DL CALC LDL CHOL (test code = 2237) 205 MG/DL RISK RATIO LDL/HDL (test code = 4.47 RATIO 2238) HEMOGLOBIN [id number] 00:00:00 Test Item Value Reference Range Interpretation Comments HEMOGLOBIN A1c (test code = 70566) 7.0 % HEMOGLOBIN [id number] 00:00:00 Test Item Value Reference Range Interpretation Comments HEMOGLOBIN A1c (test code = 43836) 7.0 % HEMOGLOBIN [id number] 00:00:00 Test Item Value Reference Range Interpretation Comments HEMOGLOBIN A1c (test code = 90043) 7.0 % [id number] 00:00:00 Test Item Value Reference Range Interpretation Comments TSH, THIRD GENERATION (test code 0.565 UIU/ML = 2821) [id number] 00:00:00 Test Item Value Reference Range Interpretation Comments TSH, THIRD GENERATION (test code 0.565 UIU/ML = 2821) [id number] 00:00:00 Test Item Value Reference Range Interpretation Comments TSH, THIRD GENERATION (test code 0.565 UIU/ML = 2821) [id number] 00:00:00 Test Item Value Reference Range Interpretation Comments TSH, THIRD GENERATION (test code 0.379 UIU/ML = 2821) [id number] 00:00:00 Test Item Value Reference Range Interpretation Comments TSH, THIRD GENERATION (test code 0.379 UIU/ML = 2821) [id number] 00:00:00 Test Item Value Reference Range Interpretation Comments TSH, THIRD GENERATION (test code 0.379 UIU/ML = 2821) [id number] 00:00:00 Test Item Value Reference Range Interpretation Comments TSH, THIRD GENERATION (test code 0.379 UIU/ML = 2821) [id number] 00:00:00 Test Item Value Reference Range Interpretation Comments TSH, THIRD GENERATION (test code 0.379 UIU/ML = 2821) [id number] 00:00:00 Test Item Value Reference Range Interpretation Comments TSH, THIRD GENERATION (test code 0.379 UIU/ML = 2821) [id number] 00:00:00 Test Item Value Reference Range Interpretation Comments TSH, THIRD GENERATION (test code 0.379 UIU/ML = 2821) [id number] 00:00:00 Test Item Value Reference Range Interpretation Comments TSH, THIRD GENERATION (test code 0.379 UIU/ML = 2821) [id number] 00:00:00 Test Item Value Reference Range Interpretation Comments TSH, THIRD GENERATION (test code 0.379 UIU/ML = 2821) [id number] 00:00:00 Test Item Value Reference Range Interpretation Comments TSH, THIRD GENERATION (test code 0.379 UIU/ML = 2821) [id number] 00:00:00 Test Item Value Reference Range Interpretation Comments TSH, THIRD GENERATION (test code 0.379 UIU/ML = 2821) CULTURE, [id number] 00:00:00 Test Item Value Reference Range Interpretation Comments CULTURE, URINE (test SPECIMEN NUMBER: code = 62488) [id number] CULTURE, [id number] 00:00:00 Test Item Value Reference Range Interpretation Comments CULTURE, URINE (test SPECIMEN NUMBER: code = 07784) [id number] CULTURE, [id number] 00:00:00 Test Item Value Reference Range Interpretation Comments CULTURE, URINE (test SPECIMEN NUMBER: code = 05332) [id number] CULTURE, [id number] 00:00:00 Test Item Value Reference Range Interpretation Comments CULTURE, URINE (test SPECIMEN NUMBER: code = 44169) [id number] CULTURE, [id number] 00:00:00 Test Item Value Reference Range Interpretation Comments CULTURE, URINE (test SPECIMEN NUMBER: code = 81202) [id number] CULTURE, [id number] 00:00:00 Test Item Value Reference Range Interpretation Comments CULTURE, URINE (test SPECIMEN NUMBER: code = 75917) [id number] CULTURE, [id number] 00:00:00 Test Item Value Reference Range Interpretation Comments CULTURE, URINE (test SPECIMEN NUMBER: code = 02176) [id number] COMPREHENSIVE METABOLIC [id number] 00:00:00 Test Item Value Reference Range Interpretation Comments GLUCOSE (test code = 2217) 128 MG/DL BUN (test code = 2208) 26 MG/DL CREATININE (test code = 2214) 0.92 MG/DL eGFR AMER. (test code 81 ML/MIN/1.73 = 49612) eGFR NON- AMER. (test 70 ML/MIN/1.73 code = 84375) CALC BUN/CREAT (test code = 28 RATIO [...] code = 2219) 29 U/L COMPREHENSIVE METABOLIC [id number] 00:00:00 Test Item Value Reference Range Interpretation Comments GLUCOSE (test code = 2217) 128 MG/DL BUN (test code = 2208) 26 MG/DL CREATININE (test code = 2214) 0.92 MG/DL eGFR AMER. (test code 81 ML/MIN/1.73 = 83816) eGFR NON- AMER. (test 70 ML/MIN/1.73 code = 82095) CALC BUN/CREAT (test code = 28 RATIO [...] code = 2219) 29 U/L ACUTE HEPATITIS [id number] 00:00:00 Test Item Value Reference Range Interpretation Comments HEPATITIS A IgM (test code = NON-REACTIVE 95258) HEPATITIS B CORE IgM (test code NON-REACTIVE = 4644) HEPATITIS B SURF AG (test code = NON-REACTIVE 2739) HEPATITIS C ANTIBODY (test code NON-REACTIVE = 4675) INTERPRETATION HEPATITIS A: (NOTE) (test code = 2552) INTERPRETATION HEPATITIS B: (NOTE) (test code = 13589) INTERPRETATION HEPATITIS C: (NOTE) (test code = 16893) ACUTE HEPATITIS [id number] 00:00:00 Test Item Value Reference Range Interpretation Comments HEPATITIS A IgM (test code = NON-REACTIVE 39511) HEPATITIS B CORE IgM (test code NON-REACTIVE = 4644) HEPATITIS B SURF AG (test code = NON-REACTIVE 2739) HEPATITIS C ANTIBODY (test code NON-REACTIVE = 4675) INTERPRETATION HEPATITIS A: (NOTE) (test code = 2552) INTERPRETATION HEPATITIS B: (NOTE) (test code = 66996) INTERPRETATION HEPATITIS C: (NOTE) (test code = 19345) [id number] 00:00:00 Test Item Value Reference Range Interpretation Comments AMYLASE (test code = 2205) 32 U/L [id number] 00:00:00 Test Item Value Reference Range Interpretation Comments AMYLASE (test code = 2205) 32 U/L [id number] 00:00:00 Test Item Value Reference Range Interpretation Comments LIPASE (test code = 2057) 22 U/L [id number] 00:00:00 Test Item Value Reference Range Interpretation Comments LIPASE (test code = 2057) 22 U/L [id number] 00:00:00 Test Item Value Reference Range Interpretation Comments LIPASE (test code = 2057) 22 U/L COMPREHENSIVE METABOLIC [id number] 00:00:00 Test Item Value Reference Range Interpretation Comments GLUCOSE (test code = 2217) 128 MG/DL BUN (test code = 2208) 26 MG/DL CREATININE (test code = 2214) 0.92 MG/DL eGFR AMER. (test code 81 ML/MIN/1.73 = 52629) eGFR NON- AMER. (test 70 ML/MIN/1.73 code = 51184) CALC BUN/CREAT (test code = 28 RATIO [...] code = 2219) 29 U/L COMPREHENSIVE METABOLIC [id number] 00:00:00 Test Item Value Reference Range Interpretation Comments GLUCOSE (test code = 2217) 128 MG/DL BUN (test code = 2208) 26 MG/DL CREATININE (test code = 2214) 0.92 MG/DL eGFR AMER. (test code 81 ML/MIN/1.73 = 75116) eGFR NON- AMER. (test 70 ML/MIN/1.73 code = 54160) CALC BUN/CREAT (test code = 28 RATIO [...] code = 2219) 29 U/L ACUTE HEPATITIS [id number] 00:00:00 Test Item Value Reference Range Interpretation Comments HEPATITIS A IgM (test code = NON-REACTIVE 87974) HEPATITIS B CORE IgM (test code NON-REACTIVE = 4644) HEPATITIS B SURF AG (test code = NON-REACTIVE 2739) HEPATITIS C ANTIBODY (test code NON-REACTIVE = 4675) INTERPRETATION HEPATITIS A: (NOTE) (test code = 2552) INTERPRETATION HEPATITIS B: (NOTE) (test code = 40533) INTERPRETATION HEPATITIS C: (NOTE) (test code = 00151) ACUTE HEPATITIS [id number] 00:00:00 Test Item Value Reference Range Interpretation Comments HEPATITIS A IgM (test code = NON-REACTIVE 25940) HEPATITIS B CORE IgM (test code NON-REACTIVE = 4644) HEPATITIS B SURF AG (test code = NON-REACTIVE 2739) HEPATITIS C ANTIBODY (test code NON-REACTIVE = 4675) INTERPRETATION HEPATITIS A: (NOTE) (test code = 2552) INTERPRETATION HEPATITIS B: (NOTE) (test code = 36207) INTERPRETATION HEPATITIS C: (NOTE) (test code = 68157) [id number] 00:00:00 Test Item Value Reference Range Interpretation Comments AMYLASE (test code = 2205) 32 U/L [id number] 00:00:00 Test Item Value Reference Range Interpretation Comments AMYLASE (test code = 2205) 32 U/L [id number] 00:00:00 Test Item Value Reference Range Interpretation Comments LIPASE (test code = 2057) 22 U/L [id number] 00:00:00 Test Item Value Reference Range Interpretation Comments LIPASE (test code = 2057) 22 U/L [id number] 00:00:00 Test Item Value Reference Range Interpretation Comments LIPASE (test code = 2057) 22 U/L COMPREHENSIVE METABOLIC [id number] 00:00:00 Test Item Value Reference Range Interpretation Comments GLUCOSE (test code = 2217) 128 MG/DL BUN (test code = 2208) 26 MG/DL CREATININE (test code = 2214) 0.92 MG/DL eGFR AMER. (test code 81 ML/MIN/1.73 = 20977) eGFR NON- AMER. (test 70 ML/MIN/1.73 code = 61384) CALC BUN/CREAT (test code = 28 RATIO [...] code = 2219) 29 U/L ACUTE HEPATITIS [id number] 00:00:00 Test Item Value Reference Range Interpretation Comments HEPATITIS A IgM (test code = NON-REACTIVE 19487) HEPATITIS B CORE IgM (test code NON-REACTIVE = 6344) HEPATITIS B SURF AG (test code = NON-REACTIVE 0247) HEPATITIS C ANTIBODY (test code NON-REACTIVE = 0435) INTERPRETATION HEPATITIS A: (NOTE) (test code = 2552) INTERPRETATION HEPATITIS B: (NOTE) (test code = 48998) INTERPRETATION HEPATITIS C: (NOTE) (test code = 78447) [id number] 00:00:00 Test Item Value Reference Range Interpretation Comments AMYLASE (test code = 2205) 32 U/L [id number] 00:00:00 Test Item Value Reference Range Interpretation Comments LIPASE (test code = 2057) 22 U/L [id number] 00:00:00 Test Item Value Reference Range Interpretation Comments LIPASE (test code = 2057) 22 U/L COMPREHENSIVE METABOLIC [id number] 00:00:00 Test Item Value Reference Range Interpretation Comments GLUCOSE (test code = 2217) 128 MG/DL BUN (test code = 2208) 26 MG/DL CREATININE (test code = 2214) 0.92 MG/DL eGFR AMER. (test code 81 ML/MIN/1.73 = 02987) eGFR NON- AMER. (test 70 ML/MIN/1.73 code = 30660) CALC BUN/CREAT (test code = 28 RATIO [...] code = 2219) 29 U/L COMPREHENSIVE METABOLIC [id number] 00:00:00 Test Item Value Reference Range Interpretation Comments GLUCOSE (test code = 2217) 128 MG/DL BUN (test code = 2208) 26 MG/DL CREATININE (test code = 2214) 0.92 MG/DL eGFR AMER. (test code 81 ML/MIN/1.73 = 37483) eGFR NON- AMER. (test 70 ML/MIN/1.73 code = 79661) CALC BUN/CREAT (test code = 28 RATIO [...] code = 2219) 29 U/L ACUTE HEPATITIS [id number] 00:00:00 Test Item Value Reference Range Interpretation Comments HEPATITIS A IgM (test code = NON-REACTIVE 31013) HEPATITIS B CORE IgM (test code NON-REACTIVE = 4644) HEPATITIS B SURF AG (test code = NON-REACTIVE 2739) HEPATITIS C ANTIBODY (test code NON-REACTIVE = 4675) INTERPRETATION HEPATITIS A: (NOTE) (test code = 2552) INTERPRETATION HEPATITIS B: (NOTE) (test code = 17775) INTERPRETATION HEPATITIS C: (NOTE) (test code = 43317) ACUTE HEPATITIS [id number] 00:00:00 Test Item Value Reference Range Interpretation Comments HEPATITIS A IgM (test code = NON-REACTIVE 87428) HEPATITIS B CORE IgM (test code NON-REACTIVE = 4644) HEPATITIS B SURF AG (test code = NON-REACTIVE 2739) HEPATITIS C ANTIBODY (test code NON-REACTIVE = 4675) INTERPRETATION HEPATITIS A: (NOTE) (test code = 2552) INTERPRETATION HEPATITIS B: (NOTE) (test code = 78455) INTERPRETATION HEPATITIS C: (NOTE) (test code = 86506) [id number] 00:00:00 Test Item Value Reference Range Interpretation Comments AMYLASE (test code = 2205) 32 U/L [id number] 00:00:00 Test Item Value Reference Range Interpretation Comments AMYLASE (test code = 2205) 32 U/L [id number] 00:00:00 Test Item Value Reference Range Interpretation Comments LIPASE (test code = 2057) 22 U/L [id number] 00:00:00 Test Item Value Reference Range Interpretation Comments LIPASE (test code = 205) 22 U/L [id number] 00:00:00 Test Item Value Reference Range Interpretation Comments LIPASE (test code = 205) 22 U/L [id number] 00:00:00 Test Item Value Reference Range Interpretation Comments TSH, THIRD GENERATION (test code 4.890 UIU/ML = 2821) [id number] 00:00:00 Test Item Value Reference Range Interpretation Comments TSH, THIRD GENERATION (test code 4.890 UIU/ML = 2821) [id number] 00:00:00 Test Item Value Reference Range Interpretation Comments TSH, THIRD GENERATION (test code 4.890 UIU/ML = 2821) COMPREHENSIVE METABOLIC [id number] 00:00:00 Test Item Value Reference Range Interpretation Comments GLUCOSE (test code = 2217) 121 MG/DL BUN (test code = 2208) 40 MG/DL CREATININE (test code = 2214) 1.48 MG/DL eGFR AMER. (test code 45 ML/MIN/1.73 = 66127) eGFR NON- AMER. (test 39 ML/MIN/1.73 code = 97323) CALC BUN/CREAT (test code = 27 RATIO [...] code = 2219) 20 U/L COMPREHENSIVE METABOLIC [id number] 00:00:00 Test Item Value Reference Range Interpretation Comments GLUCOSE (test code = 2217) 121 MG/DL BUN (test code = 2208) 40 MG/DL CREATININE (test code = 2214) 1.48 MG/DL eGFR AMER. (test code 45 ML/MIN/1.73 = 74249) eGFR NON- AMER. (test 39 ML/MIN/1.73 code = 06826) CALC BUN/CREAT (test code = 27 RATIO [...] ALT (test code = 2219) 20 U/L [id number] 00:00:00 Test Item Value Reference Range Interpretation Comments TSH, THIRD GENERATION (test code 4.890 UIU/ML = 2821) [id number] 00:00:00 Test Item Value Reference Range Interpretation Comments TSH, THIRD GENERATION (test code 4.890 UIU/ML = 2821) [id number] 00:00:00 Test Item Value Reference Range Interpretation Comments TSH, THIRD GENERATION (test code 4.890 UIU/ML = 2821) COMPREHENSIVE METABOLIC [id number] 00:00:00 Test Item Value Reference Range Interpretation Comments GLUCOSE (test code = 2217) 121 MG/DL BUN (test code = 2208) 40 MG/DL CREATININE (test code = 2214) 1.48 MG/DL eGFR AMER. (test code 45 ML/MIN/1.73 = 51148) eGFR NON- AMER. (test 39 ML/MIN/1.73 code = 04378) CALC BUN/CREAT (test code = 27 RATIO [...] code = 2219) 20 U/L COMPREHENSIVE METABOLIC [id number] 00:00:00 Test Item Value Reference Range Interpretation Comments GLUCOSE (test code = 2217) 121 MG/DL BUN (test code = 2208) 40 MG/DL CREATININE (test code = 2214) 1.48 MG/DL eGFR AMER. (test code 45 ML/MIN/1.73 = 22896) eGFR NON- AMER. (test 39 ML/MIN/1.73 code = 47748) CALC BUN/CREAT (test code = 27 RATIO [...] ALT (test code = 2219) 20 U/L [id number] 00:00:00 Test Item Value Reference Range Interpretation Comments TSH, THIRD GENERATION (test code 4.890 UIU/ML = 2821) [id number] 00:00:00 Test Item Value Reference Range Interpretation Comments TSH, THIRD GENERATION (test code 4.890 UIU/ML = 2821) COMPREHENSIVE METABOLIC [id number] 00:00:00 Test Item Value Reference Range Interpretation Comments GLUCOSE (test code = 2217) 121 MG/DL BUN (test code = 2208) 40 MG/DL CREATININE (test code = 2214) 1.48 MG/DL eGFR AMER. (test code 45 ML/MIN/1.73 = 23349) eGFR NON- AMER. (test 39 ML/MIN/1.73 code = 22243) CALC BUN/CREAT (test code = 27 RATIO [...] ALT (test code = 2219) 20 U/L [id number] 00:00:00 Test Item Value Reference Range Interpretation Comments TSH, THIRD GENERATION (test code 4.890 UIU/ML = 2821) [id number] 00:00:00 Test Item Value Reference Range Interpretation Comments TSH, THIRD GENERATION (test code 4.890 UIU/ML = 2821) [id number] 00:00:00 Test Item Value Reference Range Interpretation Comments TSH, THIRD GENERATION (test code 4.890 UIU/ML = 2821) COMPREHENSIVE METABOLIC [id number] 00:00:00 Test Item Value Reference Range Interpretation Comments GLUCOSE (test code = 2217) 121 MG/DL BUN (test code = 2208) 40 MG/DL CREATININE (test code = 2214) 1.48 MG/DL eGFR AMER. (test code 45 ML/MIN/1.73 = 02935) eGFR NON- AMER. (test 39 ML/MIN/1.73 code = 65665) CALC BUN/CREAT (test code = 27 RATIO [...] code = 2219) 20 U/L COMPREHENSIVE METABOLIC [id number] 00:00:00 Test Item Value Reference Range Interpretation Comments GLUCOSE (test code = 2217) 121 MG/DL BUN (test code = 2208) 40 MG/DL CREATININE (test code = 2214) 1.48 MG/DL eGFR AMER. (test code 45 ML/MIN/1.73 = 21969) eGFR NON- AMER. (test 39 ML/MIN/1.73 code = 78825) CALC BUN/CREAT (test code = 27 RATIO [...] (test code = 2219) 20 U/L LIPID [id number] 00:00:00 Test Item Value Reference Range Interpretation Comments CHOLESTEROL (test code = 2210) 261 MG/DL TRIGLYCERIDES (test code = 2232) 165 MG/DL HDL CHOLESTEROL (test code = 2220) 58 MG/DL CALC LDL CHOL (test code = 2237) 170 MG/DL RISK RATIO LDL/HDL (test code = 2.93 RATIO 2238) LIPID [id number] 00:00:00 Test Item Value Reference Range Interpretation Comments CHOLESTEROL (test code = 2210) 261 MG/DL TRIGLYCERIDES (test code = 2232) 165 MG/DL HDL CHOLESTEROL (test code = 2220) 58 MG/DL CALC LDL CHOL (test code = 2237) 170 MG/DL RISK RATIO LDL/HDL (test code = 2.93 RATIO 2238) CBC W/AUTO [id number] 00:00:00 Test Item Value Reference Range Interpretation [...] code = 1015) 378 K/UL CBC W/AUTO [id number] 00:00:00 Test Item Value Reference Range Interpretation [...] code = 1015) 378 K/UL CBC W/AUTO [id number] 00:00:00 Test Item Value Reference Range Interpretation [...] (test code = 1015) 378 K/UL HEMOGLOBIN [id number] 00:00:00 Test Item Value Reference Range Interpretation Comments HEMOGLOBIN A1c (test code = 41690) 6.4 % HEMOGLOBIN [id number] 00:00:00 Test Item Value Reference Range Interpretation Comments HEMOGLOBIN A1c (test code = 00224) 6.4 % HEMOGLOBIN [id number] 00:00:00 Test Item Value Reference Range Interpretation Comments HEMOGLOBIN A1c (test code = 89765) 6.4 % [id number] 00:00:00 Test Item Value Reference Range Interpretation Comments TSH (test code = 2821) 5.290 UIU/ML [id number] 00:00:00 Test Item Value Reference Range Interpretation Comments TSH (test code = 2821) 5.290 UIU/ML [id number] 00:00:00 Test Item Value Reference Range Interpretation Comments TSH (test code = 2821) 5.290 UIU/ML LIPID [id number] 00:00:00 Test Item Value Reference Range Interpretation Comments CHOLESTEROL (test code = 2210) 261 MG/DL TRIGLYCERIDES (test code = 2232) 165 MG/DL HDL CHOLESTEROL (test code = 2220) 58 MG/DL CALC LDL CHOL (test code = 2237) 170 MG/DL RISK RATIO LDL/HDL (test code = 2.93 RATIO 2238) LIPID [id number] 00:00:00 Test Item Value Reference Range Interpretation Comments CHOLESTEROL (test code = 2210) 261 MG/DL TRIGLYCERIDES (test code = 2232) 165 MG/DL HDL CHOLESTEROL (test code = 2220) 58 MG/DL CALC LDL CHOL (test code = 2237) 170 MG/DL RISK RATIO LDL/HDL (test code = 2.93 RATIO 2238) CBC W/AUTO [id number] 00:00:00 Test Item Value Reference Range Interpretation [...] code = 1015) 378 K/UL CBC W/AUTO [id number] 00:00:00 Test Item Value Reference Range Interpretation [...] code = 1015) 378 K/UL CBC W/AUTO [id number] 00:00:00 Test Item Value Reference Range Interpretation [...] (test code = 1015) 378 K/UL HEMOGLOBIN [id number] 00:00:00 Test Item Value Reference Range Interpretation Comments HEMOGLOBIN A1c (test code = 64655) 6.4 % HEMOGLOBIN [id number] 00:00:00 Test Item Value Reference Range Interpretation Comments HEMOGLOBIN A1c (test code = 39993) 6.4 % HEMOGLOBIN [id number] 00:00:00 Test Item Value Reference Range Interpretation Comments HEMOGLOBIN A1c (test code = 14108) 6.4 % [id number] 00:00:00 Test Item Value Reference Range Interpretation Comments TSH (test code = 2821) 5.290 UIU/ML [id number] 00:00:00 Test Item Value Reference Range Interpretation Comments TSH (test code = 2821) 5.290 UIU/ML [id number] 00:00:00 Test Item Value Reference Range Interpretation Comments TSH (test code = 2821) 5.290 UIU/ML LIPID [id number] 00:00:00 Test Item Value Reference Range Interpretation Comments CHOLESTEROL (test code = 2210) 261 MG/DL TRIGLYCERIDES (test code = 2232) 165 MG/DL HDL CHOLESTEROL (test code = 2220) 58 MG/DL CALC LDL CHOL (test code = 2237) 170 MG/DL RISK RATIO LDL/HDL (test code = 2.93 RATIO 2238) CBC W/AUTO [id number] 00:00:00 Test Item Value Reference Range Interpretation [...] code = 1015) 378 K/UL CBC W/AUTO [id number] 00:00:00 Test Item Value Reference Range Interpretation [...] (test code = 1015) 378 K/UL HEMOGLOBIN [id number] 00:00:00 Test Item Value Reference Range Interpretation Comments HEMOGLOBIN A1c (test code = 02926) 6.4 % HEMOGLOBIN [id number] 00:00:00 Test Item Value Reference Range Interpretation Comments HEMOGLOBIN A1c (test code = 83686) 6.4 % [id number] 00:00:00 Test Item Value Reference Range Interpretation Comments TSH (test code = 2821) 5.290 UIU/ML [id number] 00:00:00 Test Item Value Reference Range Interpretation Comments TSH (test code = 2821) 5.290 UIU/ML LIPID [id number] 00:00:00 Test Item Value Reference Range Interpretation Comments CHOLESTEROL (test code = 2210) 261 MG/DL TRIGLYCERIDES (test code = 2232) 165 MG/DL HDL CHOLESTEROL (test code = 2220) 58 MG/DL CALC LDL CHOL (test code = 2237) 170 MG/DL RISK RATIO LDL/HDL (test code = 2.93 RATIO 2238) LIPID [id number] 00:00:00 Test Item Value Reference Range Interpretation Comments CHOLESTEROL (test code = 2210) 261 MG/DL TRIGLYCERIDES (test code = 2232) 165 MG/DL HDL CHOLESTEROL (test code = 2220) 58 MG/DL CALC LDL CHOL (test code = 2237) 170 MG/DL RISK RATIO LDL/HDL (test code = 2.93 RATIO 2238) CBC W/AUTO [id number] 00:00:00 Test Item Value Reference Range Interpretation [...] code = 1015) 378 K/UL CBC W/AUTO [id number] 00:00:00 Test Item Value Reference Range Interpretation [...] code = 1015) 378 K/UL CBC W/AUTO [id number] 00:00:00 Test Item Value Reference Range Interpretation [...] (test code = 1015) 378 K/UL HEMOGLOBIN [id number] 00:00:00 Test Item Value Reference Range Interpretation Comments HEMOGLOBIN A1c (test code = 22959) 6.4 % HEMOGLOBIN [id number] 00:00:00 Test Item Value Reference Range Interpretation Comments HEMOGLOBIN A1c (test code = 58386) 6.4 % HEMOGLOBIN [id number] 00:00:00 Test Item Value Reference Range Interpretation Comments HEMOGLOBIN A1c (test code = 86775) 6.4 % [id number] 00:00:00 Test Item Value Reference Range Interpretation Comments TSH (test code = 2821) 5.290 UIU/ML [id number] 00:00:00 Test Item Value Reference Range Interpretation Comments TSH (test code = 2821) 5.290 UIU/ML [id number] 00:00:00 Test Item Value Reference Range Interpretation [...] code = 2821) 1.030 UIU/ML COMPREHENSIVE METABOLIC [id number] 00:00:00 Test Item Value Reference Range Interpretation Comments GLUCOSE (test code = 2217) 106 MG/DL BUN (test code = 2208) 23 MG/DL CREATININE (test code = 2214) 0.66 MG/DL eGFR AMER. (test code 114 ML/MIN/1.73 = 77646) eGFR NON- AMER. (test 99 ML/MIN/1.73 code = 46804) CALC BUN/CREAT (test code = 35 RATIO [...] code = 2219) 31 U/L COMPREHENSIVE METABOLIC [id number] 00:00:00 Test Item Value Reference Range Interpretation Comments GLUCOSE (test code = 2217) 106 MG/DL BUN (test code = 2208) 23 MG/DL CREATININE (test code = 2214) 0.66 MG/DL eGFR AMER. (test code 114 ML/MIN/1.73 = 96673) eGFR NON- AMER. (test 99 ML/MIN/1.73 code = 45548) CALC BUN/CREAT (test code = 35 RATIO [...] code = 2821) 0.335 UIU/ML COMPREHENSIVE METABOLIC [id number] 00:00:00 Test Item Value Reference Range Interpretation Comments GLUCOSE (test code = 2217) 106 MG/DL BUN (test code = 2208) 23 MG/DL CREATININE (test code = 2214) 0.66 MG/DL eGFR AMER. (test code 114 ML/MIN/1.73 = 29428) eGFR NON- AMER. (test 99 ML/MIN/1.73 code = 86945) CALC BUN/CREAT (test code = 35 RATIO [...] code = 2219) 31 U/L COMPREHENSIVE METABOLIC [id number] 00:00:00 Test Item Value Reference Range Interpretation Comments GLUCOSE (test code = 2217) 106 MG/DL BUN (test code = 2208) 23 MG/DL CREATININE (test code = 2214) 0.66 MG/DL eGFR AMER. (test code 114 ML/MIN/1.73 = 10225) eGFR NON- AMER. (test 99 ML/MIN/1.73 code = 79404) CALC BUN/CREAT (test code = 35 RATIO [...] code = 2821) 0.335 UIU/ML COMPREHENSIVE METABOLIC [id number] 00:00:00 Test Item Value Reference Range Interpretation Comments GLUCOSE (test code = 2217) 106 MG/DL BUN (test code = 2208) 23 MG/DL CREATININE (test code = 2214) 0.66 MG/DL eGFR AMER. (test code 114 ML/MIN/1.73 = 02458) eGFR NON- AMER. (test 99 ML/MIN/1.73 code = 85072) CALC BUN/CREAT (test code = 35 RATIO [...] code = 2821) 0.335 UIU/ML COMPREHENSIVE METABOLIC [id number] 00:00:00 Test Item Value Reference Range Interpretation Comments GLUCOSE (test code = 2217) 106 MG/DL BUN (test code = 2208) 23 MG/DL CREATININE (test code = 2214) 0.66 MG/DL eGFR AMER. (test code 114 ML/MIN/1.73 = 52749) eGFR NON- AMER. (test 99 ML/MIN/1.73 code = 60724) CALC BUN/CREAT (test code = 35 RATIO [...] code = 2219) 31 U/L COMPREHENSIVE METABOLIC [id number] 00:00:00 Test Item Value Reference Range Interpretation Comments GLUCOSE (test code = 2217) 106 MG/DL BUN (test code = 2208) 23 MG/DL CREATININE (test code = 2214) 0.66 MG/DL eGFR AMER. (test code 114 ML/MIN/1.73 = 29899) eGFR NON- AMER. (test 99 ML/MIN/1.73 code = 97047) CALC BUN/CREAT (test code = 35 RATIO [...] code = 2821) 0.335 UIU/ML COMPREHENSIVE METABOLIC [id number] 00:00:00 Test Item Value Reference Range Interpretation Comments GLUCOSE (test code = 2217) 103 MG/DL BUN (test code = 2208) 15 MG/DL CREATININE (test code = 2214) 0.77 MG/DL eGFR AMER. (test code 101 ML/MIN/1.73 = 78427) eGFR NON- AMER. (test 87 ML/MIN/1.73 code = 23141) CALC BUN/CREAT (test code = 19 RATIO [...] code = 2219) 24 U/L COMPREHENSIVE METABOLIC [id number] 00:00:00 Test Item Value Reference Range Interpretation Comments GLUCOSE (test code = 2217) 103 MG/DL BUN (test code = 2208) 15 MG/DL CREATININE (test code = 2214) 0.77 MG/DL eGFR AMER. (test code 101 ML/MIN/1.73 = 60550) eGFR NON- AMER. (test 87 ML/MIN/1.73 code = 49171) CALC BUN/CREAT (test code = 19 RATIO [...] code = 2821) 0.424 UIU/ML COMPREHENSIVE METABOLIC [id number] 00:00:00 Test Item Value Reference Range Interpretation Comments GLUCOSE (test code = 2217) 103 MG/DL BUN (test code = 2208) 15 MG/DL CREATININE (test code = 2214) 0.77 MG/DL eGFR AMER. (test code 101 ML/MIN/1.73 = 86606) eGFR NON- AMER. (test 87 ML/MIN/1.73 code = 80059) CALC BUN/CREAT (test code = 19 RATIO [...] code = 2219) 24 U/L COMPREHENSIVE METABOLIC [id number] 00:00:00 Test Item Value Reference Range Interpretation Comments GLUCOSE (test code = 2217) 103 MG/DL BUN (test code = 2208) 15 MG/DL CREATININE (test code = 2214) 0.77 MG/DL eGFR AMER. (test code 101 ML/MIN/1.73 = 69940) eGFR NON- AMER. (test 87 ML/MIN/1.73 code = 71493) CALC BUN/CREAT (test code = 19 RATIO [...] code = 2821) 0.424 UIU/ML COMPREHENSIVE METABOLIC [id number] 00:00:00 Test Item Value Reference Range Interpretation Comments GLUCOSE (test code = 2217) 103 MG/DL BUN (test code = 2208) 15 MG/DL CREATININE (test code = 2214) 0.77 MG/DL eGFR AMER. (test code 101 ML/MIN/1.73 = 81200) eGFR NON- AMER. (test 87 ML/MIN/1.73 code = 37950) CALC BUN/CREAT (test code = 19 RATIO [...] code = 2821) 0.424 UIU/ML COMPREHENSIVE METABOLIC [id number] 00:00:00 Test Item Value Reference Range Interpretation Comments GLUCOSE (test code = 2217) 103 MG/DL BUN (test code = 2208) 15 MG/DL CREATININE (test code = 2214) 0.77 MG/DL eGFR AMER. (test code 101 ML/MIN/1.73 = 51246) eGFR NON- AMER. (test 87 ML/MIN/1.73 code = 56226) CALC BUN/CREAT (test code = 19 RATIO [...] code = 2219) 24 U/L COMPREHENSIVE METABOLIC [id number] 00:00:00 Test Item Value Reference Range Interpretation Comments GLUCOSE (test code = 2217) 103 MG/DL BUN (test code = 2208) 15 MG/DL CREATININE (test code = 2214) 0.77 MG/DL eGFR AMER. (test code 101 ML/MIN/1.73 = 74332) eGFR NON- AMER. (test 87 ML/MIN/1.73 code = 53649) CALC BUN/CREAT (test code = 19 RATIO [...] (test code = 2821) 0.424 UIU/ML CULTURE, [id number] 00:00:00 Test Item Value Reference Range Interpretation Comments CULTURE, URINE (test SPECIMEN NUMBER: code = 48079) [id number] CULTURE, [id number] 00:00:00 Test Item Value Reference Range Interpretation Comments CULTURE, URINE (test SPECIMEN NUMBER: code = 05211) [id number] CULTURE, [id number] 00:00:00 Test Item Value Reference Range Interpretation Comments CULTURE, URINE (test SPECIMEN NUMBER: code = 21835) [id number] CULTURE, [id number] 00:00:00 Test Item Value Reference Range Interpretation Comments CULTURE, URINE (test SPECIMEN NUMBER: code = 51666) [id number] CULTURE, [id number] 00:00:00 Test Item Value Reference Range Interpretation Comments CULTURE, URINE (test SPECIMEN NUMBER: code = 87955) [id number] CULTURE, [id number] 00:00:00 Test Item Value Reference Range Interpretation Comments CULTURE, URINE (test SPECIMEN NUMBER: code = 75399) [id number] CULTURE, [id number] 00:00:00 Test Item Value Reference Range Interpretation Comments CULTURE, URINE (test SPECIMEN NUMBER: code = 66450) [id number] CULTURE, [id number] 00:00:00 Test Item Value Reference Range Interpretation Comments CULTURE, URINE (test SPECIMEN NUMBER: code = 45285) [id number] CULTURE, [id number] 00:00:00 Test Item Value Reference Range Interpretation Comments CULTURE, URINE (test SPECIMEN NUMBER: code = 28970) [id number] CULTURE, [id number] 00:00:00 Test Item Value Reference Range Interpretation Comments CULTURE, URINE (test SPECIMEN NUMBER: code = 28805) [id number] CULTURE, [id number] 00:00:00 Test Item Value Reference Range Interpretation Comments CULTURE, URINE (test SPECIMEN NUMBER: code = 74822) [id number] CULTURE, [id number] 00:00:00 Test Item Value Reference Range Interpretation Comments CULTURE, URINE (test SPECIMEN NUMBER: code = 83021) [id number] CULTURE, [id number] 00:00:00 Test Item Value Reference Range Interpretation Comments CULTURE, URINE (test SPECIMEN NUMBER: code = 98925) [id number] CULTURE, [id number] 00:00:00 Test Item Value Reference Range Interpretation Comments CULTURE, URINE (test SPECIMEN NUMBER: code = 86093) [id number]
[2022-10-28 05:20] LABS: Hematocrit 43.9 % (36.0-45.0); Lymphocytes % 19.7 % (15.3-44.8); MCV 90.4 fL (80-100); MPV 6.7 fL (7.6-11.3); Platelets 369 thou/uL (152-406); RBC Red Blood Cell Count 4.86 M/uL (3.86-4.86)
[2022-10-28] MEDS ORDERED: ONDANSETRON 4 MG/2 ML VIAL ONE (06:00)
[2022-10-28 06:18] LABS: Albumin 4.4 g/dL (3.4-5.0); Bilirubin Total 0.4 mg/dL (0.2-1.0); Potassium 3.9 mEq/L (3.5-5.1); Protein, Total 8.9 g/dL (6.4-8.2)
--- NOTE | 2022-10-28 06:26 | ER ---
Nurse's Notes [facility] Name: Jaimie Amanda Age: 61 yrs Sex: Female : 1960 Arrival Date: 10/28/2022 Time: 04:44 Bed 4 Private MD: Diagnosis: Hyponatremia Presentation: 10/28 04:48 Chief complaint: EMS states: Pt started feeling nauseous today. She has been vomiting. kd3 She feels like her sodium is too low and she needed to come in. 4 mg of Zofran was given IM in route. Pt is unsure if she has been taking her medications properly. Coronavirus screen: unknown. Ebola Screen: No symptoms or risks identified at this time. Initial Sepsis Screen: Does the patient meet any 2 criteria? No. Patient's initial sepsis screen is negative. Does the patient have a suspected source of infection? No. Patient's initial sepsis screen is negative. Risk Assessment: Do you want to hurt yourself or someone else? Patient reports no desire to harm self or others. Onset of symptoms was October 28, 2022. 04:48 Method Of Arrival: EMS: [facility] kd3 04:48 Acuity: ZHEN 3 kd3 Triage Assessment: 04:50 General: Appears ill, Behavior is cooperative. kd3 Historical: - Allergies: 04:50 hydrochlorothiazide; kd3 - PMHx: 04:50 Hypertensive disorder; low NA; Hypothyroidism; Chronic Abdominal Pain; NIDDM; Anxiety; kd3 - PSHx: 04:50 Thyroidectomy; kd3 - Immunization history:: Adult Immunizations up to date. - Social history:: Smoking status: unknown. Screenin:11 [facility] ED Fall Risk Assessment (Adult) History of falling in the last 3 months, kd3 including since admission No falls in past 3 months (0 pts) Confusion or Disorientation No (0 pts) Intoxicated or Sedated No (0 pts) Impaired Gait No (0 pts) Mobility Assist Device Used No (0 pt) Altered Elimination No (0 pt) Score/Fall Risk Level 0 - 2 = Low Risk Maintained a safe environment. Abuse screen: Denies threats or abuse. Denies injuries from another. Nutritional screening: No deficits noted. Tuberculosis screening: No symptoms or risk factors identified. Assessment: 05:10 General: Appears uncomfortable, Behavior is calm, cooperative. Pain: Complains of pain kd3 in general pain. Neuro: Level of Consciousness is awake, alert, obeys commands, Oriented to person, place, time, situation. Cardiovascular: Patient's skin is warm and dry. Respiratory: Airway is patent Trachea midline Respiratory effort is even, unlabored, Respiratory pattern is regular, symmetrical. 05:20 General: Inside lab notified of recollect needed . kd3 Vital Signs: 04:48 Pulse 84; Resp 19 S; Pulse Ox 98% ; kd3 05:09 BP 218 / 106; Pulse 85; Resp 19; Temp 98.2(O); kd3 05:52 BP 209 / 100; Pulse 78; Resp 18 S; Pulse Ox 98% on R/A; kd3 06:35 BP 190 / 85; kl ED Course: 04:46 Patient arrived in ED. rv1 04:48 Lidia Guan, RN is Primary Nurse. kd3 04:50 Triage completed. kd3 04:50 Arm band placed on right wrist. kd3 04:52 Zo Zapata MD is Attending Physician. sp3 05:00 EKG done, by ED staff, reviewed by Zo Zapata MD. jw7 05:11 Patient has correct armband on for positive identification. Provided Education on: . kd3 06:44 No provider procedures requiring assistance completed. intact, bleeding controlled, No kd3 redness/swelling at site. Pressure dressing applied. Administered Medications: 05:52 Drug: Ondansetron IVP 4 mg Route: IVP; Site: left forearm; kd3 06:44 Follow up: Response: No adverse reaction; Nausea is decreased kd3 06:29 Drug: Labetalol IV 10 mg Route: IV; Rate: calculated rate; Site: right antecubital; kl 06:44 Follow up: Response: No adverse reaction; IV Status: Completed infusion kd3 06:33 Not Given (Patient Refused): Promethazine IVP 12.5 mg IVP once kl Medication: 05:14 VIS not applicable for this client. kd3 Outcome: 06:25 Discharge ordered by . sp3 06:44 Discharged to home ambulatory, with family. kd3 06:44 Condition: stable 06:44 Discharge instructions given to patient, family, Instructed on discharge instructions, follow up and referral plans. Demonstrated understanding of instructions, follow-up care. 06:45 Patient left the ED. kd3 Signatures: Namrata Otero RN RN Zo Paulson MD MD sp3 Lidia Guan RN RN kd3 Lakesha Bloom RN RN jw7 Kenzie Luna rv1 Corrections: (The following items were deleted from the chart) 04:51 04:48 Chief complaint: EMS states: Pt started feeling nauseous today. She has been kd3 vomiting. She feels like her sodium is too low and she needed to come in. 4 mg of Zofran was given IM in route. kd3
--- NOTE | 2022-10-28 06:26 | EDPHYS ---
Physician Documentation [facility] Name: Jaimie Amanda Age: 61 yrs Sex: Female : 1960 Arrival Date: 10/28/2022 Time: 04:44 Bed 4 Private MD: ED Physician Zo Zapata HPI: 10/28 05:01 This 61 yrs old Female presents to ER via EMS with complaints of Low sodium and nausea. sp3 05:01 61-year-old female with history of hypertension, chronic hyponatremia, chronic sp3 abdominal pain presents to the ED with chief complaint nausea and "I feel like my sodium is low". Patient also states she is has continued abdominal pain. There is no change in any of these patterns. She denies any actual vomiting, diarrhea, chest pain, shortness of breath, syncope, near syncope, neurological symptoms, seizures, or any other signs or symptoms on ROS at this time.. Historical: - Allergies: 04:50 hydrochlorothiazide; kd3 - PMHx: 04:50 Hypertensive disorder; low NA; Hypothyroidism; Chronic Abdominal Pain; NIDDM; Anxiety; kd3 - PSHx: 04:50 Thyroidectomy; kd3 - Immunization history:: Adult Immunizations up to date. - Social history:: Smoking status: unknown. ROS: 05:02 Constitutional: Negative for fever, chills, and weight loss, Eyes: Negative for injury, sp3 pain, redness, and discharge, Neck: Negative for injury, pain, and swelling, Cardiovascular: Negative for chest pain, palpitations, and edema, Respiratory: Negative for shortness of breath, cough, wheezing, and pleuritic chest pain, Back: Negative for injury and pain, MS/Extremity: Negative for injury and deformity, Skin: Negative for injury, rash, and discoloration, Neuro: Negative for headache, weakness, numbness, tingling, and seizure. 05:02 All other systems are negative. Exam: 05:02 Constitutional: This is a well developed, well nourished patient who is awake, alert, sp3 and in no acute distress. Head/Face: Normocephalic, atraumatic. Eyes: Pupils equal round and reactive to light, extra-ocular motions intact. Lids and lashes normal. Conjunctiva and sclera are non-icteric and not injected. Cornea within normal limits. Periorbital areas with no swelling, redness, or edema. Neck: Trachea midline, no thyromegaly or masses palpated, and no cervical lymphadenopathy. Supple, full range of motion without nuchal rigidity, or vertebral point tenderness. No Meningismus. Chest/axilla: Normal chest wall appearance and motion. Nontender with no deformity. No lesions are appreciated. Cardiovascular: Regular rate and rhythm with a normal S1 and S2. No gallops, murmurs, or rubs. Normal PMI, no JVD. No pulse deficits. Respiratory: Lungs have equal breath sounds bilaterally, clear to auscultation and percussion. No rales, rhonchi or wheezes noted. No increased work of breathing, no retractions or nasal flaring. Abdomen/GI: Soft, non-tender, with normal bowel sounds. No distension or tympany. No guarding or rebound. No evidence of tenderness throughout. Back: No spinal tenderness. No costovertebral tenderness. Full range of motion. Skin: Warm, dry with normal turgor. Normal color with no rashes, no lesions, and no evidence of cellulitis. MS/ Extremity: Pulses equal, no cyanosis. Neurovascular intact. Full, normal range of motion. Neuro: Awake and alert, GCS 15, oriented to person, place, time, and situation. Cranial nerves II-XII grossly intact. Motor strength 5/5 in all extremities. Sensory grossly intact. Cerebellar exam normal. Normal gait. Psych: Awake, alert, with orientation to person, place and time. Behavior, mood, and affect are within normal limits. 05:03 ECG was reviewed by the Attending Physician. EKG demonstrates normal sinus rhythm at 81 sp3 bpm with normal intervals, normal QRS, normal axis, nonspecific diffuse ST/T-segment's without evidence of acute ischemia. Vital Signs: 04:48 Pulse 84; Resp 19 S; Pulse Ox 98% ; kd3 05:09 BP 218 / 106; Pulse 85; Resp 19; Temp 98.2(O); kd3 05:52 BP 209 / 100; Pulse 78; Resp 18 S; Pulse Ox 98% on R/A; kd3 06:35 BP 190 / 85; kl MDM: 04:59 Patient medically screened. sp3 05:03 Data reviewed: vital signs, nurses notes, old medical records, lab test result(s), EKG. sp3 ED course: 61-year-old female with chronic abdominal pain and chronic hyponatremia. We will assess sodium and treat if needed. Otherwise patient has no acute abnormality and no other emergent condition clinically noted.. 06:23 ED course: Blood pressure remains elevated and we will give labetalol IV to treat this. sp3 Patient is noncompliant with her hypertension medications. Patient sodium today is 122 which for her is better than her normal state. She has salt tabs at home she takes every day. She feels better with the nausea medication and is asking for discharge. We will safely discharge her home at this time with PCP follow-up. I have urged her to continue taking her salt tabs and antihypertension medications.. 10/28 04:48 Order name: CBC with Diff; Complete Time: 06:13 10/28 04:48 Order name: CMP; Complete Time: 06:20 10/28 04:48 Order name: IV Saline Lock; Complete Time: 05:20 10/28 04:48 Order name: Labs collected and sent; Complete Time: 05:20 10/28 04:48 Order name: EKG - Nurse/Tech; Complete Time: 05:01 10/28 05:19 Order name: Misc. Order: RECOLLECT ALL LABS; Complete Time: 05:41 rv1 Administered Medications: 05:52 Drug: Ondansetron IVP 4 mg Route: IVP; Site: left forearm; kd3 06:44 Follow up: Response: No adverse reaction; Nausea is decreased kd3 06:29 Drug: Labetalol IV 10 mg Route: IV; Rate: calculated rate; Site: right antecubital; kl 06:44 Follow up: Response: No adverse reaction; IV Status: Completed infusion kd3 06:33 Not Given (Patient Refused): Promethazine IVP 12.5 mg IVP once kl Disposition Summary: 10/28/22 06:25 Discharge Ordered Location: Home sp3 Condition: Stable sp3 Diagnosis - Hyponatremia sp3 Followup: sp3 - With: Private Physician - When: Upon discharge from the Emergency Department - Reason: Continuance of care Discharge Instructions: - Discharge Summary Sheet sp3 - Hyponatremia sp3 Forms: - Medication Reconciliation Form sp3 - Thank You Letter sp3 - Antibiotic Education sp3 - Prescription Opioid Use sp3 - Patient Portal Instructions sp3 - Leadership Thank You Letter sp3 Signatures: Dispatcher [employer] Namrata Gaston, RN RN Zo Paulson MD MD sp3 Lidia Guan RN RN 3 Jeremy, Kenzie [facility]
[2022-10-28] MEDS ORDERED: LABETALOL 20 MG/4ML SYRINGE IV ONE (06:37)
[2022-10-28] MEDS ORDERED: PROMETHAZINE INJ 25 MG/ML AMP ONE (06:42)
[2022-10-28 06:50] VITALS: O2SAT 98
[2022-10-28 06:51] VITALS: TEMP 98.2
[2022-10-28 06:53] VITALS: BP 190/85
--- NOTE | 2022-10-29 13:00 | EKG ---
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
== END 2022-10-28 06:45 | disposition home or self-care (01) ==
LOC: ER 04:44
DX: E87.1 Hypo-osmolality and hyponatremia (principal); R10.9 Unspecified abdominal pain; E11.9 Type 2 diabetes mellitus without complications; I10 Essential (primary) hypertension; Z88.8 Allergy status to other drugs, medicaments and biological substances
CPT/HCPCS: 93005; 85025; 36415; 80053; 99284; J2550; J2405

== ENCOUNTER 2022-11-23 10:08 | Emergency (ER) | payer OTHER ==
--- OUTSIDE RECORDS SUMMARY | 2022-11-23 10:19 | XMS REPORT | Continuity of Care Document ---
:1960 Author Organization [facility] t Address [address] [place] [address] [place] [id number] Care Team Providers Name Role Phone [facility]pless Primary Care Physician MATT SIMPSON Attending Clinician Unavailable MATT SIMPSON Attending Clinician Unavailable Doctor Unassigned, [place] Attending Clinician Unavailable WALLY KRISHNAMURTHY Attending Clinician Unavailable Natacha Brewster Attending Clinician Payers Payer Name Policy Type Policy Number Effective Date Expiration Date Sarina castelan [facility] [id number] 2017 00:00:00 PLUS Problems This patient has [...] OPHEN INGREDI 07-27 ity of 00:00: [place] [facility] Hmg-Coa Propensi Inactiv Reductas [...] r Alcohol intake 2016-05-01 2016-05-[address] [facility] 00:00:00 00:00:00 non-drinker of Medical nter alcohol (finding) Sex Ass[birth year] At [birth year] [facility] 00:00:00 00:00:00 [facility] Smoking Status Start Date Stop Date Source Smokes tobacco daily 2016-05-01 00:00:00 [facility] Medications Ordered Filled Start Stop [...] capsule 00:00: 00 OXcarbazepi 2017-0 Yes 600mg Q.[id number] Take [address] [address] ne 2-23 [id number] mg by Yasir (TRILEPTAL) 10:23: 3D mouth 3 Med ical 600 [facility] 59 (three) Center tablet times daily. PARoxetine 2017-0 Yes 40mg QD Take [address] (PAXIL) 40 2-23 [facility] 10:23: nightly. [address] OXcarbazepi 2017-0 Yes 600mg Q.[id number] Take [address] ne 2-23 [id number] [facility] by [facility] (TRILE[facility]) 10:23: 3D mouth 3 Med ical 600 [facility] 59 (three) Center tablet times daily. PARoxetine 2017-0 Yes 40mg QD Take [address] (PAXIL) 40 2-23 [facility] 10:23: nightly. [address] OXcarbazepi 2017-0 Yes 600mg Q.[id number] Take [address] ne 2-23 [id number] [facility] by [facility] (TRILEPTAL) 10:23: 3D mouth 3 Med ical 600 MG 59 (three) Center tablet times daily. PARoxetine 2017-0 Yes 40mg QD Take [address] (PAXIL) 40 2-23 [facility] 10:23: nightly. [address] OXcarbazepi 2017-0 Yes 600mg Q.[id number] Take [address] ne 2-23 [id number] mg by [facility] (TRILEPTAL) 10:23: 3D mouth 3 Med ical 600 MG 59 (three) Center tablet times daily. PARoxetine 2017-0 Yes 40mg QD Take [address] (PAXIL) 40 2-23 [facility] 10:23: nightly. [address] OXcarbazepi 2017-0 Yes 600mg Q.[id number] Take [address] [address] ne 2-23 [id number] [facility] by [facility] (TRILEPTAL) 10:23: 3D mouth 3 Med ical 600 MG 59 (three) Center tablet times daily. PARoxetine 2017-0 Yes 40mg QD Take [address] (PAXIL) 40 2-23 [facility] 10:23: nightly. [address] OXcarbazepi 2017-0 Yes 600mg Q.[id number] Take [address] ne 2-23 [id number] mg by [facility] (TRILEPTAL) 10:23: 3D mouth 3 Med ical 600 MG 59 (three) Center tablet times daily. OXcarbazepi 2017-0 Yes 600mg Q.[id number] Take [address] ne 2-23 [id number] mg by [facility] (TRILEPTAL) 10:23: 3D mouth 3 Med ical 600 MG 59 (three) Center tablet times daily. PARoxetine 2017-0 Yes 40mg QD Take [address] (PAXIL) 40 2-23 [facility] 10:23: nightly. [address] OXcarbazepi 2017-0 Yes 600mg Q.[id number] Take [address] ne 2-23 [id number] mg by [facility] (TRILEPTAL) 10:23: 3D mouth 3 Med ical 600 MG 59 (three) Center tablet times daily. PARoxetine 2017-0 Yes 40mg QD Take [address] (PAXIL) 40 2-23 [facility] tablet 10:23: nightly. [address] OXcarbazepi 2017-0 Yes 600mg Q.[id number] Take [address] ne 2-23 [id number] mg by [facility] (TRILEPTAL) 10:23: 3D mouth 3 Med ical 600 MG 59 (three) Center tablet times daily. PARoxetine 2017-0 Yes 40mg QD Take [address] (PAXIL) 40 2-23 [facility] tablet 10:23: nightly. [address] PARoxetine 2017-0 Yes 40mg QD Take [address] (PAXIL) 40 2-23 [facility] tablet 10:23: nightly. [address] OXcarbazepi 2017-0 Yes 600mg Q.[id number] Take [address] ne 2-23 [id number] mg by [facility] (TRILEPTAL) 10:23: 3D mouth 3 Med ical 600 MG 59 (three) Center tablet times daily. PARoxetine 2017-0 Yes 40mg QD Take [address] (PAXIL) 40 2-23 by [facility] tablet 10:23: nightly. [address] OXcarbazepi 2017-0 Yes 600mg Q.[id number] Take [address] ne 2-23 [id number] mg by [facility] (TRILEPTAL) 10:23: 3D mouth 3 Med ical 600 MG 59 (three) Center tablet times daily. PARoxetine 2017-0 Yes 40mg QD Take [address] (PAXIL) 40 2-23 [facility] tablet 10:23: nightly. [address] 2017-0 Yes 600mg Q.[id number] Take [address] ne 2-23 [id number] mg by [facility] (TRILEPTAL) 10:23: 3D mouth 3 Med ical 600 MG 59 (three) Center tablet times daily. PARoxetine 2017-0 Yes 40mg QD Take [address] (PAXIL) 40 2-23 [facility] tablet 10:23: nightly. [address] 2017-0 Yes 600mg Q.[id number] Take [address] ne 2-23 [id number] mg by [facility] (TRILEPTAL) 10:23: 3D mouth 3 Med ical 600 MG 59 (three) Center tablet times daily. PARoxetine 2017-0 Yes 40mg QD Take [address] (PAXIL) 40 2-23 [facility] tablet 10:23: nightly. [address] 2017-0 Yes 600mg Q.[id number] Take [address] ne 2-23 [id number] mg by [facility] (TRILEPTAL) 10:23: 3D mouth 3 Med ical 600 MG 59 (three) Center tablet times daily. PARoxetine 2017-0 Yes 40mg QD Take [address] (PAXIL) 40 2-23 [facility] tablet 10:23: nightly. [address] 2017-0 Yes 600mg Q.[id number] Take [address] ne 2-23 [id number] mg by [facility] (TRILEPTAL) 10:23: 3D mouth 3 Med ical 600 MG 59 (three) Center tablet times daily. PARoxetine 2017-0 Yes 40mg QD Take [address] (PAXIL) 40 2-23 by [facility] tablet 10:23: nightly. [address] OXcarbazepi 2017-0 Yes 600mg Q.[id number] Take [address] ne 2-23 [id number] mg by [facility] (TRILEPTAL) 10:23: 3D mouth 3 Med ical 600 MG 59 (three) Center tablet times daily. PARoxetine 2017-0 Yes 40mg QD Take [address] (PAXIL) 40 2-23 by [facility] tablet 10:23: nightly. [facility] [address] OXcarbazepi 2017-0 Yes 600mg Q.[id number] Take [address] ne 2-23 [id number] mg by [facility] (TRILEPTAL) 10:23: 3D mouth 3 Med ical 600 MG 59 (three) Center tablet times daily. PARoxetine 2017-0 Yes 40mg QD Take [address] (PAXIL) 40 2-23 by mouth [facility] tablet 10:23: nightly. [facility] [address] [facility] 600[facility] Q.[id number] Take [address] ne 2-23 [id number] mg by [facility] (TRILEPTAL) 10:23: 3D mouth 3 Med ical 600 MG 59 (three) Center tablet times daily. PARoxetine 2017-0 Yes 40mg QD Take [address] (PAXIL) 40 2-23 by mouth [facility] tablet 10:23: nightly. [facility] [address] [facility] Yes 600mg Q.[id number] Take [address] ne 2-23 [id number] mg by [facility] (TRILEPTAL) 10:23: 3D mouth 3 Med ical 600 MG 59 (three) Center tablet times daily. PARoxetine 2017-0 Yes 40mg QD Take [address] (PAXIL) 40 2-23 by mouth [facility] tablet 10:23: nightly. [facility] [address] [facility] Yes 600mg Q.[id number] Take [address] ne 2-23 [id number] mg by [facility] (TRILEPTAL) 10:23: 3D mouth 3 Med ical 600 MG 59 (three) Center tablet times daily. PARoxetine 2017-0 Yes 40mg QD Take [address] (PAXIL) 40 2-23 by mouth [facility] tablet 10:23: nightly. [facility] [address] OXcarbazepi 2017-0 Yes 600mg Q.[id number] Take [address] ne 2-23 [id number] mg by [facility] (TRILEPTAL) 10:23: 3D mouth 3 Med ical 600 MG 59 (three) Center tablet times daily. PARoxetine 2017-0 Yes 40mg QD Take [address] (PAXIL) 40 2-23 by mouth [facility] tablet 10:23: nightly. [facility] [address] OXcarbazepi 2017-0 Yes 600mg Q.[id number] Take [address] ne 2-23 [id number] mg by [facility] (TRILEPTAL) 10:23: 3D mouth 3 Med ical 600 MG 59 (three) Center tablet times daily. PARoxetine 2017-0 Yes 40mg QD Take [address] (PAXIL) 40 2-23 by mouth [facility] tablet 10:23: nightly. [facility] [address] OXcarbazepi 2017-0 Yes 600mg Q.[id number] Take [address] ne 2-23 [id number] mg by [facility] (TRILEPTAL) 10:23: 3D mouth 3 Med ical 600 MG 59 (three) Center tablet times daily. PARoxetine 2017-0 Yes 40mg QD Take [address] (PAXIL) 40 2-23 by mouth [facility] tablet 10:23: nightly. [facility] [address] OXcarbazepi 2017-0 Yes 600mg Q.[id number] Take [address] ne 2-23 [id number] mg by [facility] (TRILEPTAL) 10:23: 3D mouth 3 Med ical 600 MG 59 (three) Center tablet times daily. OXcarbazepi 2017-0 Yes 600mg Q.[id number] Take [address] ne 2-23 [id number] mg by [facility] (TRILEPTAL) 10:23: 3D mouth 3 Med ical 600 MG 59 (three) Center tablet times daily. PARoxetine 2017-0 Yes 40mg QD Take [address] (PAXIL) 40 2-23 by mouth [facility] tablet 10:23: nightly. [facility] [address] OXcarbazepi 2017-0 Yes 600mg Q.[id number] Take [address] ne 2-23 [id number] mg by [facility] (TRILEPTAL) 10:23: 3D mouth 3 Med ical 600 MG 59 (three) Center tablet times daily. PARoxetine 2017-0 Yes 40mg QD Take [address] (PAXIL) 40 2-23 [facility] 10:23: nightly. [address] 2017-0 Yes 600mg Q.[id number] Take [address] ne 2-23 [id number] mg by [facility] (TRILEPTAL) 10:23: 3D mouth 3 Med ical 600 MG 59 (three) Center tablet times daily. PARoxetine 2017-0 Yes 40mg QD Take [address] (PAXIL) 40 2-23 by [facility] tablet 10:23: nightly. [address] PARoxetine 2017-0 Yes 40mg QD Take [address] (PAXIL) 40 2-23 by mouth [facility] tablet 10:23: nightly. [address] OXcarbazepi 2017-0 Yes 600mg Q.[id number] Take [address] ne 2-23 [id number] mg by [facility] (TRILEPTAL) 10:23: 3D mouth 3 Med ical 600 MG 59 (three) Center tablet times daily. PARoxetine 2017-0 Yes 40mg QD Take [address] (PAXIL) 40 2-23 by [facility] tablet 10:23: nightly. [address] 2017-0 Yes 600mg Q.[id number] Take [address] ne 2-23 [id number] mg by [facility] (TRILEPTAL) 10:23: 3D mouth 3 Med ical 600 MG 59 (three) Center tablet times daily. PARoxetine 2017-0 Yes 40mg QD Take [address] (PAXIL) 40 2-23 by [facility] tablet 10:23: nightly. [address] OXcarbazepi 2017-0 Yes 600mg Q.[id number] Take [address] ne 2-23 [id number] mg by [facility] (TRILEPTAL) 10:23: 3D mouth 3 Med ical 600 MG 59 (three) Center tablet times daily. PARoxetine 2017-0 Yes 40mg QD Take [address] (PAXIL) 40 2-23 by [facility] tablet 10:23: nightly. [address] OXcarbazepi 2017-0 Yes 600mg Q.[id number] Take [address] ne 2-23 [id number] mg by [facility] (TRILEPTAL) 10:23: 3D mouth 3 Med ical 600 MG 59 (three) Center tablet times daily. PARoxetine 2017-0 Yes 40mg QD Take [address] (PAXIL) 40 2-23 by [facility] tablet 10:23: nightly. [address] OXcarbazepi 2017-0 Yes 600mg Q.[id number] Take [address] ne 2-23 [id number] mg by [facility] (TRILEPTAL) 10:23: 3D mouth 3 Med ical 600 MG 59 (three) Center tablet times daily. PARoxetine 2017-0 Yes 40mg QD Take [address] (PAXIL) 40 2-23 by mouth [facility] tablet 10:23: nightly. [address] OXcarbazepi 2017-0 Yes 600mg Q.[id number] Take [address] ne 2-23 [id number] mg by [facility] (TRILEPTAL) 10:23: 3D mouth 3 Med ical 600 MG 59 (three) Center tablet times daily. PARoxetine 2017-0 Yes 40mg QD Take [address] (PAXIL) 40 2-23 by mouth [facility] tablet 10:23: nightly. [address] OXcarbazepi 2017-0 Yes 600mg Q.[id number] Take [address] ne 2-23 [id number] mg by [facility] (TRILEPTAL) 10:23: 3D mouth 3 Med ical 600 MG 59 (three) Center tablet times daily. PARoxetine 2017-0 Yes 40mg QD Take [address] (PAXIL) 40 2-23 by [facility] tablet 10:23: nightly. [address] OXcarbazepi 2017-0 Yes 600mg Q.[id number] Take [address] ne 2-23 [id number] mg by [facility] (TRILEPTAL) 10:23: 3D mouth 3 Med ical 600 MG 59 (three) Center tablet times daily. OXcarbazepi 2017-0 Yes 600mg Q.[id number] Take [address] ne 2-23 [id number] mg by [facility] (TRILEPTAL) 10:23: 3D mouth 3 Med ical 600 MG 59 (three) Center tablet times daily. PARoxetine 2017-0 Yes 40mg QD Take [address] (PAXIL) 40 2-23 by mouth [facility] tablet 10:23: nightly. [address] OXcarbazepi 2017-0 Yes 600mg Q.[id number] Take [address] ne 2-23 [id number] mg by [facility] (TRILEPTAL) 10:23: 3D mouth 3 Med ical 600 MG 59 (three) Center tablet times daily. PARoxetine 2017-0 Yes 40mg QD Take [address] (PAXIL) 40 2-23 by mouth [facility] tablet 10:23: nightly. [address] OXcarbazepi 2017-0 Yes 600mg Q.[id number] Take [address] ne 2-23 [id number] mg by [facility] (TRILEPTAL) 10:23: 3D mouth 3 Med ical 600 MG 59 (three) Center tablet times daily. PARoxetine 2017-0 Yes 40mg QD Take [address] (PAXIL) 40 2-23 by mouth [facility] tablet 10:23: nightly. [address] OXcarbazepi 2017-0 Yes 600mg Q.[id number] Take [address] ne 2-23 [id number] mg by [facility] (TRILEPTAL) 10:23: 3D mouth 3 Med ical 600 MG 59 (three) Center tablet times daily. PARoxetine 2017-0 Yes 40mg QD Take [address] (PAXIL) 40 2-23 by [facility] tablet 10:23: nightly. [address] PARoxetine 2017-0 Yes 40mg QD Take [address] (PAXIL) 40 2-23 by mouth [facility] tablet 10:23: nightly. [address] OXcarbazepi 2017-0 Yes 600mg Q.[id number] Take [address] ne 2-23 [id number] mg by [facility] (TRILEPTAL) 10:23: 3D mouth 3 Med ical 600 MG 59 (three) Center tablet times daily. PARoxetine 2017-0 Yes 40mg QD Take [address] (PAXIL) 40 2-23 by mouth [facility] tablet 10:23: nightly. [address] OXcarbazepi 2017-0 Yes 600mg Q.[id number] Take [address] ne 2-23 [id number] mg by [facility] (TRILEPTAL) 10:23: 3D mouth 3 Med ical 600 MG 59 (three) Center tablet times daily. PARoxetine 2017-0 Yes 40mg QD Take [address] (PAXIL) 40 2-23 by [facility] tablet 10:23: nightly. [address] 2017-0 Yes 600mg Q.[id number] Take [address] ne 2-23 [id number] mg by [facility] (TRILEPTAL) 10:23: 3D mouth 3 Med ical 600 MG 59 (three) Center tablet times daily. PARoxetine 2017-0 Yes 40mg QD Take [address] (PAXIL) 40 2-23 by [facility] tablet 10:23: nightly. [address] 2017-0 Yes 600mg Q.[id number] Take [address] ne 2-23 [id number] mg by [facility] (TRILEPTAL) 10:23: 3D mouth 3 Med ical 600 MG 59 (three) Center tablet times daily. PARoxetine 2017-0 Yes 40mg QD Take [address] (PAXIL) 40 2-23 by mouth [facility] tablet 10:23: nightly. [address] 2017-0 Yes 600mg Q.[id number] Take [address] ne 2-23 [id number] mg by [facility] (TRILEPTAL) 10:23: 3D mouth 3 Med ical 600 MG 59 (three) Center tablet times daily. PARoxetine 2017-0 Yes 40mg QD Take [address] (PAXIL) 40 2-23 by [facility] tablet 10:23: nightly. [address] 2017-0 Yes 600mg Q.[id number] Take [address] ne 2-23 [id number] mg by [facility] (TRILEPTAL) 10:23: 3D mouth 3 Med ical 600 MG 59 (three) Center tablet times daily. PARoxetine 2017-0 Yes 40mg QD Take [address] (PAXIL) 40 2-23 by [facility] tablet 10:23: nightly. [address] 2017-0 Yes 600mg Q.[id number] Take [address] ne 2-23 [id number] mg by [facility] (TRILEPTAL) 10:23: 3D mouth 3 Med ical 600 MG 59 (three) Center tablet times daily. PARoxetine 2017-0 Yes 40mg QD Take [address] (PAXIL) 40 2-23 by [facility] tablet 10:23: nightly. [address] OXcarbazepi 2017-0 Yes 600mg Q.[id number] Take [address] ne 2-23 [id number] mg by [facility] (TRILEPTAL) 10:23: 3D mouth 3 Med ical 600 MG 59 (three) Center tablet times daily. OXcarbazepi 2017-0 Yes 600mg Q.[id number] Take [address] ne 2-23 [id number] mg by [facility] (TRILEPTAL) 10:23: 3D mouth 3 Med ical 600 MG 59 (three) Center tablet times daily. PARoxetine 2017-0 Yes 40mg QD Take [address] (PAXIL) 40 2-23 by mouth [facility] tablet 10:23: nightly. [address] OXcarbazepi 2017-0 Yes 600mg Q.[id number] Take [address] ne 2-23 [id number] mg by [facility] (TRILEPTAL) 10:23: 3D mouth 3 Med ical 600 MG 59 (three) Center tablet times daily. PARoxetine 2017-0 Yes 40mg QD Take [address] (PAXIL) 40 2-23 by mouth [facility] tablet 10:23: nightly. [address] OXcarbazepi 2017-0 Yes 600mg Q.[id number] Take [address] ne 2-23 [id number] mg by [facility] (TRILEPTAL) 10:23: 3D mouth 3 Med ical 600 MG 59 (three) Center tablet times daily. PARoxetine 2017-0 Yes 40mg QD Take [address] (PAXIL) 40 2-23 by mouth [facility] tablet 10:23: nightly. [address] PARoxetine 2017-0 Yes 40mg QD Take [address] (PAXIL) 40 2-23 by mouth [facility] tablet 10:23: nightly. [address] OXcarbazepi 2017-0 Yes 600mg Q.[id number] Take [address] ne 2-23 [id number] mg by [facility] (TRILEPTAL) 10:23: 3D mouth 3 Med ical 600 MG 59 (three) Center tablet times daily. PARoxetine 2017-0 Yes 40mg QD Take [address] (PAXIL) 40 2-23 by mouth [facility] tablet 10:23: nightly. [address] OXcarbazepi 2017-0 Yes 600mg Q.[id number] Take [address] ne 2-23 [id number] mg by [facility] (TRILEPTAL) 10:23: 3D mouth 3 Med ical 600 MG 59 (three) Center tablet times daily. PARoxetine 2017-0 Yes 40mg QD Take [address] (PAXIL) 40 2-23 by [facility] tablet 10:23: nightly. [address] LORazepam 2017-0 Yes 1mg Take 1 [...] Goal Plan of Care Note [code = 68716-4] Goal Plan of Care Note [code = 77615-4] Goal Plan of Care Note [code = 32574-0] Goal Plan of Care Note [code = 37929-3] Goal Plan of Care Note [code = 70884-7] Goal Plan of Care Note [code = 56016-0] Goal Plan of Care Note [code = 44586-4] Goal Plan of Care Note [code = 69817-1] Goal Plan of Care Note [code = 61191-9] Goal Plan of Care Note [code = 83702-6] Goal Plan of Care Note [code = 93982-5] Goal Plan of Care Note [code = 66830-4] Goal Plan of Care Note [code = 97155-0] Goal Plan of Care Note [code = 88843-9] Goal Plan of Care Note [code = 81381-3] Goal Plan of Care Note [code = 95101-6] Goal Plan of Care Note [code = 75489-5] Goal Plan of Care Note [code = 64747-5] Goal Plan of Care Note [code = 42305-9] Goal Plan of Care Note [code = 23521-6] Goal Plan of Care Note [code = 39164-2] Goal Plan of Care Note [code = 11556-0] Goal Plan of Care Note [code = 74328-0] Goal Plan of Care Note [code = 95385-9] Goal Plan of Care Note [code = 18923-1] Goal Plan of Care Note [code = 27816-4] Goal Plan of Care Note [code = 69966-7] Goal Plan of Care Note [code = 57706-3] Goal Plan of Care Note [code = 98038-6] Goal Plan of Care Note [code = 67258-4] Goal Plan of Care Note [code = 26190-5] Goal Plan of Care Note [code = 63399-7] Goal Plan of Care Note [code = 49594-7] Goal Plan of Care Note [code = 72762-9] Goal Plan of Care Note [code = 91161-0] Goal Plan of Care Note [code = 90696-9] Goal Plan of Care Note [code = 99270-6] Goal Plan of Care Note [code = 31834-2] Goal Plan of Care Note [code = 11853-7] Goal Plan of Care Note [code = 27227-3] Goal Plan of Care Note [code = 46112-5] Goal Plan of Care Note [code = 53507-5] Goal Plan of Care Note [code = 35688-6] Goal Plan of Care Note [code = 90792-3] Goal Plan of Care Note [code = 90096-7] Goal Plan of Care Note [code = 46644-3] Goal Plan of Care Note [code = 61622-1] Goal Plan of Care Note [code = 25159-5] Goal Plan of Care Note [code = 88866-6] Goal Plan of Care Note [code = 96885-6] Goal Plan of Care Note [code = 70273-6] Goal Plan of Care Note [code = 11833-3] Goal Plan of Care Note [code = 48413-9] Goal Plan of Care Note [code = 87793-5] Goal Plan of Care Note [code = 73591-8] Goal Plan of Care Note [code = 74076-7] Goal Plan of Care Note [code = 56404-0] Goal Plan of Care Note [code = 23795-9] Goal Plan of Care Note [code = 23633-4] Goal Plan of Care Note [code = 31467-6] Goal Plan of Care Note [code = 05552-0] Goal Plan of Care Note [code = 07030-9] Goal Plan of Care Note [code = 56396-7] Goal Plan of Care Note [code = 12868-7] Goal Plan of Care Note [code = 61631-4] Goal Plan of Care Note [code = 55168-4] Goal Plan of Care Note [code = 01504-1] Goal Plan of Care Note [code = 58327-8] Goal Plan of Care Note [code = 38595-2] Goal Plan of Care Note [code = 77088-9] Goal Plan of Care Note [code = 27083-5] Goal Plan of Care Note [code = 72217-6] Goal Plan of Care Note [code = 48298-2] Goal Plan of Care Note [code = 54837-4] Goal Plan of Care Note [code = 64803-3] Goal Plan of Care Note [code = 76512-9] Goal Plan of Care Note [code = 25956-5] Goal Plan of Care Note [code = 50438-5] Goal Plan of Care Note [code = 83913-8] Goal Plan of Care Note [code = 30206-8] Goal Plan of Care Note [code = 45796-4] Goal Plan of Care Note [code = 56638-0] Goal Plan of Care Note [code = 75409-9] Goal Plan of Care Note [code = 79330-3] Goal Plan of Care Note [code = 29858-6] Goal Plan of Care Note [code = 73308-0] Goal Plan of Care Note [code = 30060-8] Goal Plan of Care Note [code = 61033-5] Goal Plan of Care Note [code = 28505-0] Goal Plan of Care Note [code = 12536-7] Goal Plan of Care Note [code = 05329-5] Goal Plan of Care Note [code = 46391-9] Goal Plan of Care Note [code = 98616-6] Goal Plan of Care Note [code = 40150-8] Goal Plan of Care Note [code = 01928-5] Goal Plan of Care Note [code = 62536-8] Goal Plan of Care Note [code = 51928-5] Goal Plan of Care Note [code = 37209-3] Goal Plan of Care Note [code = 69431-7] Goal Plan of Care Note [code = 11803-1] Goal Plan of Care Note [code = 78934-5] Goal Plan of Care Note [code = 74688-2] Goal Plan of Care Note [code = 06067-8] Goal Plan of Care Note [code = 92536-5] Goal Plan of Care Note [code = 42430-1] Goal Plan of Care Note [code = 70080-5] Goal Plan of Care Note [code = 99434-5] Goal Plan of Care Note [code = 91926-8] Goal Plan of Care Note [code = 87887-5] Goal Plan of Care Note [code = 85072-8] Goal Plan of Care Note [code = 99298-3] Goal Plan of Care Note [code = 36452-2] Goal Plan of Care Note [code = 26305-1] Goal Plan of Care Note [code = 86489-2] Goal Plan of Care Note [code = 66951-0] Goal Plan of Care Note [code = 49510-7] Goal Plan of Care Note [code = 93917-8] Goal Plan of Care Note [code = 86944-2] Goal Plan of Care Note [code = 27387-9] Goal Plan of Care Note [code = 33187-3] Goal Plan of Care Note [code = 21232-1] Goal Plan of Care Note [code = 14068-4] Goal Plan of Care Note [code = 86173-8] Goal Plan of Care Note [code = 85431-9] Goal Plan of Care Note [code = 47009-0] Goal Plan of Care Note [code = 27412-5] Goal Plan of Care Note [code = 70302-4] Goal Plan of Care Note [code = 10692-4] Goal Plan of Care Note [code = 61364-4] Goal Plan of Care Note [code = 06880-8] Goal Plan of Care Note [code = 85856-3] Goal Plan of Care Note [code = 21929-0] Goal Plan of Care Note [code = 49274-3] Goal Plan of Care Note [code = 90570-5] Goal Plan of Care Note [code = 61525-3] Goal Plan of Care Note [code = 13366-4] Goal Plan of Care Note [code = 65146-4] Goal Plan of Care Note [code = 32075-5] Goal Plan of Care Note [code = 04588-8] Goal Plan of Care Note [code = 18677-1] Goal Plan of Care Note [code = 20529-8] Goal Plan of Care Note [code = 63662-2] Goal Plan of Care Note [code = 55673-1] Goal Plan of Care Note [code = 36843-7] Goal Plan of Care Note [code = 05745-6] Goal Plan of Care Note [code = 89644-6] Goal Plan of Care Note [code = 13727-9] Goal Plan of Care Note [code = 32785-4] Goal Plan of Care Note [code = 57639-3] Goal Plan of Care Note [code = 19563-8] Goal Plan of Care Note [code = 78824-4] Goal Plan of Care Note [code = 56494-1] Goal Plan of Care Note [code = 72023-4] Goal Plan of Care Note [code = 24622-9] Goal Plan of Care Note [code = 67381-5] Goal Plan of Care Note [code = 63982-7] Goal Plan of Care Note [code = 18951-5] Goal Plan of Care Note [code = 07100-0] Goal Plan of Care Note [code = 15592-7] Goal Plan of Care Note [code = 10700-3] Goal Plan of Care Note [code = 27710-2] Goal Plan of Care Note [code = 78914-4] Goal Plan of Care Note [code = 24776-5] Goal Plan of Care Note [code = 41861-5] Goal Plan of Care Note [code = 25077-5] Goal Plan of Care Note [code = 97082-1] Goal Plan of Care Note [code = 03822-3] Goal Plan of Care Note [code = 39329-6] Goal Plan of Care Note [code = 13945-0] Goal Plan of Care Note [code = 41295-7] Goal Plan of Care Note [code = 11433-9] Goal Plan of Care Note [code = 99318-1] Goal Plan of Care Note [code = 92144-1] Goal Plan of Care Note [code = 14084-9] Goal Plan of Care Note [code = 31901-4] Goal Plan of Care Note [code = 58731-1] Goal Plan of Care Note [code = 59518-7] Goal Plan of Care Note [code = 23615-9] Goal Plan of Care Note [code = 24546-7] Goal Plan of Care Note [code = 28595-4] Goal Plan of Care Note [code = 53123-5] Goal Plan of Care Note [code = 04559-5] Goal Plan of Care Note [code = 82880-7] Goal Plan of Care Note [code = 53053-3] Goal Plan of Care Note [code = 74474-0] Goal Plan of Care Note [code = 55065-9] Goal Plan of Care Note [code = 31691-2] Goal Plan of Care Note [code = 58561-3] Goal Plan of Care Note [code = 51115-2] Goal Plan of Care Note [code = 53325-0] Goal Plan of Care Note [code = 70120-6] Goal Plan of Care Note [code = 95444-0] Goal Plan of Care Note [code = 47753-5] Goal Plan of Care Note [code = 10944-0] Goal Plan of Care Note [code = 23325-3] Goal Plan of Care Note [code = 21743-5] Goal Plan of Care Note [code = 02115-6] Goal Plan of Care Note [code = 29244-0] Goal Plan of Care Note [code = 16199-0] Goal Plan of Care Note [code = 72274-8] Goal Plan of Care Note [code = 94517-2] Goal Plan of Care Note [code = 49441-8] Goal Plan of Care Note [code = 29120-6] Goal Plan of Care Note [code = 78280-0] Goal Plan of Care Note [code = 61892-9] Goal Plan of Care Note [code = 69617-5] Goal Plan of Care Note [code = 43784-3] Goal Plan of Care Note [code = 02564-6] Encounters Start End Encounter Admission Attending Care Care Encounter Source Date/Time Date/Time Type Type [facility] Facility Department ID 2021-06-01 Outpatient [facility] [id number] [place] 01:36:29 [id number] [facility] 2022-05-24 2022-05-24 Outpatient SFA SFA [id number] Cristian 10:36:59 10:36:59 0318 F Jerman 2022-02-11 2022-02-11 Outpatient SFA SFA [id number] Cristian 09:04:48 09:04:48 1206 F Jerman 2022-02-10 2022-02-10 Outpatient SFA SFA [id number] Cristian 09:29:34 09:29:34 1205 F Jerman 2022-02-10 2022-02-10 Outpatient [id number]- [id number] 4b92x6-3 00:00:00 00:00:00 Visit 4089-4cab 089-4cab-9 -9dn5-d7c bf5-t6t666 960sfnn40 bafa93 2022-01-10 2022-01-10 Outpatient SFA SFA [id number] 022 Cristian 09:16:14 09:16:14 1104 F Jerman 2022-01-10 2022-01-10 Outpatient g9gnhdo9- [id number] f2 accaa6-a 00:00:00 00:00:00 Visit aca9-4c83 ca9-4c83-a -w2gx-ke4 7eb-bc13f3 8a1j938o1 f032f9 2021-12-19 2021-12-19 Outpatient SFA SFA [id number] 022 Cristian 16:11:31 16:11:31 1013 F Jerman 2021-12-19 2021-12-19 Outpatient [id number]- [id number] 466cae-a 00:00:00 00:00:00 Visit d804-355o 770-441f-a -adae-62b amelia-62bace jmzcs91us fd81af 2021-09-17 2021-09-17 Outpatient aec1ukds- [id number] aa q4bber-1 00:00:00 00:00:00 Visit 935a-4f50 35a-4f50-b -b48t-s6i 77d-c2ba85 [id number] 1264a6 2020-08-03 2020-08-03 Outpatient MATT VÁSQUEZ [facility] [id number] [facility] 10:00:00 10:00:00 MATT SIMPSON [facility] 2020-07-25 2020-07-25 Orders Doctor ABE [id number] 00:00:00 00:00:00 Only Unassigned, BK 350.1.13.10 [place] [facility] 4.2.7.2.686 [id number] 2019-09-26 2019-09-26 Outpatient Bertin KRISHNAMURTHY [facility] [id number] Univers 16:00:00 16:00:00 WALLY [facility] 2018-10-21 2018-10-21 [facility] [id number] 00:00:00 00:00:00 Natacha Nguyen 350.1.13.10 Ade 4.2.7.2.686 [place] [id number] [facility] Results Test Description Test Time Test Comments Results Result Comments Source TSH, THIRD GENERATION 2022-05-26 02:57:49 Test Item Value Reference Range Interpretation Comme nts TSH, THIRD GENERATION (test code = 2821) 6.350 UIU/ML 0.400-4.100 H LIPID [id number] 01:09:34 Test Item Value Reference Range Interpretation Comments CHOLESTEROL (test 268 MG/DL <200 H code = 2210) TRIGLYCERIDES (test 100 MG/DL <150 code = 2232) HDL CHOLESTEROL (test 66 MG/DL >39 code = 2220) CALC LDL CHOL (test 180 MG/DL <100 H NOTE: C ALCULATED LDL code = 2237) IS BASED ON MELBA-OLVREA METHOD WHICHINCLUDES ADJUSTABLE TRIGLYCERIDE:VL DL CHOLESTEROL RAT IO.THIS FACTOR VARIES B Y MEASURED TRIGLY CERIDE AND NON-HDLCHOL ESTEROL CONCENTRATIONS WITH INCREASED CALCU LATED LDL SEENIN HIGH ER TRIGLYCERIDE OR LOWER NON-HDL SPECIME NS. FOR MOREINFORMATION , SEE CLIENT ANNOUNCE MENT AT [email or web address] [email or web address] [email or web address] LDL/HDL 2.73 RATIO <3.22 [facility] has important (test code = 2238) pathology staff changes effecti ve 05/07/2022. New pathology staff will provide uninter rupted, excellent patie nt care and clinical consultation. S ee URL: [email or web address] S OTHERWISE INDIC ATED, ALL TESTING PER FORMED AT [facility] DNA13, [facility]. [address] [place] [address] LABOR ATORY DIRECTOR: Andrew WHITLEY CONNOR NUMBER [id number] CAP ACCREDITATION N O. [id number] HEMOGLOBIN [id number] 03:17:24 Test Item Value Reference Range Interpretation Comments HEMOGLOBIN A1c (test 6.4 % 4.2-5.6 H AMERI CAN DIABETES code = 16085) ASSOCIATION IDELINES FOR HGB A1C: PREDIABETES/INC REASED [...] TESTING OR LABORATORY C ONSULTATION. TSH, THIRD [id number] 05:15:49 Test Item Value Reference Range Interpretation Comments TSH, THIRD GENERATION (test code 2.080 UIU/ML 0.400-4.100 = 2821) HEMOGLOBIN [id number] 03:46:00 Test Item Value Reference Range Interpretation Comments HEMOGLOBIN A1c (test 6.6 % 4.2-5.6 H AMERIC AN DIABETES code = 98660) ASSOCIATION IDELINES FOR HGB A1C: PREDIABETES/INC REASED [...] PER FORMED ATCLINICAL PATH OLOGY LABORATORIES, [place]. [address], [place] [address] LABORATORY DIRE CTOR: DIANA RUSS M.D. CLIA NUMBER [id number] [facility] [place]. [id number] LIPID [id number] 02:59:52 Test Item Value Reference Range Interpretation [...] MOREINFORMATION , SEE CLIENT ANNOUNCE MENT AT [email or web address] [email or web address] RATIO LDL/HDL 4.02 RATIO <3.22 H (test code = 2238) [id number] 00:00:00 Test Item Value Reference Range Interpretation Comments TSH, THIRD GENERATION (test code 2.080 UIU/ML = 2821) [id number] 00:00:00 Test Item Value Reference Range Interpretation Comments TSH, THIRD GENERATION (test code 2.080 UIU/ML = 2821) [id number] 00:00:00 Test Item Value Reference Range Interpretation Comments TSH, THIRD GENERATION (test code 2.080 UIU/ML = 2821) LIPID [id number] 00:00:00 Test Item Value Reference Range Interpretation Comments CHOLESTEROL (test code = 2210) 292 MG/DL TRIGLYCERIDES (test code = 2232) 184 MG/DL HDL CHOLESTEROL (test code = 2220) 51 MG/DL CALC LDL CHOL (test code = 2237) 205 MG/DL RISK RATIO LDL/HDL (test code = 4.02 RATIO 2238) LIPID [id number] 00:00:00 Test Item Value Reference Range Interpretation Comments CHOLESTEROL (test code = 2210) 292 MG/DL TRIGLYCERIDES (test code = 2232) 184 MG/DL HDL CHOLESTEROL (test code = 2220) 51 MG/DL CALC LDL CHOL (test code = 2237) 205 MG/DL RISK RATIO LDL/HDL (test code = 4.02 RATIO 2238) HEMOGLOBIN [id number] 00:00:00 Test Item Value Reference Range Interpretation Comments HEMOGLOBIN A1c (test code = 38632) 6.6 % HEMOGLOBIN [id number] 00:00:00 Test Item Value Reference Range Interpretation Comments HEMOGLOBIN A1c (test code = 88822) 6.6 % HEMOGLOBIN [id number] 00:00:00 Test Item Value Reference Range Interpretation Comments HEMOGLOBIN A1c (test code = 34892) 6.6 % [id number] 00:00:00 Test Item Value Reference Range Interpretation Comments TSH, THIRD GENERATION (test code 2.080 UIU/ML = 2821) [id number] 00:00:00 Test Item Value Reference Range Interpretation Comments TSH, THIRD GENERATION (test code 2.080 UIU/ML = 2821) [id number] 00:00:00 Test Item Value Reference Range Interpretation Comments TSH, THIRD GENERATION (test code 2.080 UIU/ML = 2821) LIPID [id number] 00:00:00 Test Item Value Reference Range Interpretation Comments CHOLESTEROL (test code = 2210) 292 MG/DL TRIGLYCERIDES (test code = 2232) 184 MG/DL HDL CHOLESTEROL (test code = 2220) 51 MG/DL CALC LDL CHOL (test code = 2237) 205 MG/DL RISK RATIO LDL/HDL (test code = 4.02 RATIO 2238) LIPID [id number] 00:00:00 Test Item Value Reference Range Interpretation Comments CHOLESTEROL (test code = 2210) 292 MG/DL TRIGLYCERIDES (test code = 2232) 184 MG/DL HDL CHOLESTEROL (test code = 2220) 51 MG/DL CALC LDL CHOL (test code = 2237) 205 MG/DL RISK RATIO LDL/HDL (test code = 4.02 RATIO 2238) HEMOGLOBIN [id number] 00:00:00 Test Item Value Reference Range Interpretation Comments HEMOGLOBIN A1c (test code = 14620) 6.6 % HEMOGLOBIN [id number] 00:00:00 Test Item Value Reference Range Interpretation Comments HEMOGLOBIN A1c (test code = 97290) 6.6 % HEMOGLOBIN [id number] 00:00:00 Test Item Value Reference Range Interpretation Comments HEMOGLOBIN A1c (test code = 96966) 6.6 % [id number] 00:00:00 Test Item Value Reference Range Interpretation Comments TSH, THIRD GENERATION (test code 2.080 UIU/ML = 2821) [id number] 00:00:00 Test Item Value Reference Range Interpretation Comments TSH, THIRD GENERATION (test code 2.080 UIU/ML = 2821) LIPID [id number] 00:00:00 Test Item Value Reference Range Interpretation Comments CHOLESTEROL (test code = 2210) 292 MG/DL TRIGLYCERIDES (test code = 2232) 184 MG/DL HDL CHOLESTEROL (test code = 2220) 51 MG/DL CALC LDL CHOL (test code = 2237) 205 MG/DL RISK RATIO LDL/HDL (test code = 4.02 RATIO 2238) HEMOGLOBIN [id number] 00:00:00 Test Item Value Reference Range Interpretation Comments HEMOGLOBIN A1c (test code = 88735) 6.6 % HEMOGLOBIN [id number] 00:00:00 Test Item Value Reference Range Interpretation Comments HEMOGLOBIN A1c (test code = 17520) 6.6 % [id number] 00:00:00 Test Item Value Reference Range Interpretation Comments TSH, THIRD GENERATION (test code 2.080 UIU/ML = 2821) [id number] 00:00:00 Test Item Value Reference Range Interpretation Comments TSH, THIRD GENERATION (test code 2.080 UIU/ML = 2821) [id number] 00:00:00 Test Item Value Reference Range Interpretation Comments TSH, THIRD GENERATION (test code 2.080 UIU/ML = 2821) LIPID [id number] 00:00:00 Test Item Value Reference Range Interpretation Comments CHOLESTEROL (test code = 2210) 292 MG/DL TRIGLYCERIDES (test code = 2232) 184 MG/DL HDL CHOLESTEROL (test code = 2220) 51 MG/DL CALC LDL CHOL (test code = 2237) 205 MG/DL RISK RATIO LDL/HDL (test code = 4.02 RATIO 2238) LIPID [id number] 00:00:00 Test Item Value Reference Range Interpretation Comments CHOLESTEROL (test code = 2210) 292 MG/DL TRIGLYCERIDES (test code = 2232) 184 MG/DL HDL CHOLESTEROL (test code = 2220) 51 MG/DL CALC LDL CHOL (test code = 2237) 205 MG/DL RISK RATIO LDL/HDL (test code = 4.02 RATIO 2238) HEMOGLOBIN [id number] 00:00:00 Test Item Value Reference Range Interpretation Comments HEMOGLOBIN A1c (test code = 28708) 6.6 % HEMOGLOBIN [id number] 00:00:00 Test Item Value Reference Range Interpretation Comments HEMOGLOBIN A1c (test code = 57869) 6.6 % HEMOGLOBIN [id number] 00:00:00 Test Item Value Reference Range Interpretation Comments HEMOGLOBIN A1c (test code = 05737) 6.6 % HEMOGLOBIN [id number] 00:00:00 Test Item Value Reference Range Interpretation Comments HEMOGLOBIN A1c (test code = 36943) 6.8 % HEMOGLOBIN [id number] 00:00:00 Test Item Value Reference Range Interpretation Comments HEMOGLOBIN A1c (test code = 24401) 6.8 % HEMOGLOBIN [id number] 00:00:00 Test Item Value Reference Range Interpretation Comments HEMOGLOBIN A1c (test code = 38163) 6.8 % LIPID [id number] 00:00:00 Test Item Value Reference Range Interpretation Comments CHOLESTEROL (test code = 2210) 303 MG/DL TRIGLYCERIDES (test code = 2232) 191 MG/DL HDL CHOLESTEROL (test code = 2220) 61 MG/DL CALC LDL CHOL (test code = 2237) 205 MG/DL RISK RATIO LDL/HDL (test code = 3.36 RATIO 2238) LIPID [id number] 00:00:00 Test Item Value Reference Range Interpretation Comments CHOLESTEROL (test code = 2210) 303 MG/DL TRIGLYCERIDES (test code = 2232) 191 MG/DL HDL CHOLESTEROL (test code = 2220) 61 MG/DL CALC LDL CHOL (test code = 2237) 205 MG/DL RISK RATIO LDL/HDL (test code = 3.36 RATIO 2238) [id number] 00:00:00 Test Item Value Reference Range Interpretation Comments TSH, THIRD GENERATION (test code 0.769 UIU/ML = 2821) [id number] 00:00:00 Test Item Value Reference Range Interpretation Comments TSH, THIRD GENERATION (test code 0.769 UIU/ML = 2821) [id number] 00:00:00 Test Item Value Reference Range Interpretation Comments TSH, THIRD GENERATION (test code 0.769 UIU/ML = 2821) COMPREHENSIVE METABOLIC [id number] 00:00:00 Test Item Value Reference Range Interpretation Comments GLUCOSE (test code = 2217) 131 MG/DL BUN (test code = 2208) 13 MG/DL CREATININE (test code = 2214) 0.65 MG/DL eGFR AMER. (test code 113 ML/MIN/1.73 = 51445) eGFR NON- AMER. (test 97 ML/MIN/1.73 code = 50542) CALC BUN/CREAT (test code = 20 RATIO [...] code = 2219) 23 U/L COMPREHENSIVE METABOLIC [id number] 00:00:00 Test Item Value Reference Range Interpretation Comments GLUCOSE (test code = 2217) 131 MG/DL BUN (test code = 2208) 13 MG/DL CREATININE (test code = 2214) 0.65 MG/DL eGFR AMER. (test code 113 ML/MIN/1.73 = 89915) eGFR NON- AMER. (test 97 ML/MIN/1.73 code = 17336) CALC BUN/CREAT (test code = 20 RATIO [...] (test code = 2219) 23 U/L HEMOGLOBIN [id number] 00:00:00 Test Item Value Reference Range Interpretation Comments HEMOGLOBIN A1c (test code = 72773) 6.8 % HEMOGLOBIN [id number] 00:00:00 Test Item Value Reference Range Interpretation Comments HEMOGLOBIN A1c (test code = 89150) 6.8 % HEMOGLOBIN [id number] 00:00:00 Test Item Value Reference Range Interpretation Comments HEMOGLOBIN A1c (test code = 94682) 6.8 % LIPID [id number] 00:00:00 Test Item Value Reference Range Interpretation Comments CHOLESTEROL (test code = 2210) 303 MG/DL TRIGLYCERIDES (test code = 2232) 191 MG/DL HDL CHOLESTEROL (test code = 2220) 61 MG/DL CALC LDL CHOL (test code = 2237) 205 MG/DL RISK RATIO LDL/HDL (test code = 3.36 RATIO 2238) LIPID [id number] 00:00:00 Test Item Value Reference Range Interpretation Comments CHOLESTEROL (test code = 2210) 303 MG/DL TRIGLYCERIDES (test code = 2232) 191 MG/DL HDL CHOLESTEROL (test code = 2220) 61 MG/DL CALC LDL CHOL (test code = 2237) 205 MG/DL RISK RATIO LDL/HDL (test code = 3.36 RATIO 2238) [id number] 00:00:00 Test Item Value Reference Range Interpretation Comments TSH, THIRD GENERATION (test code 0.769 UIU/ML = 2821) [id number] 00:00:00 Test Item Value Reference Range Interpretation Comments TSH, THIRD GENERATION (test code 0.769 UIU/ML = 2821) [id number] 00:00:00 Test Item Value Reference Range Interpretation Comments TSH, THIRD GENERATION (test code 0.769 UIU/ML = 2821) COMPREHENSIVE METABOLIC [id number] 00:00:00 Test Item Value Reference Range Interpretation Comments GLUCOSE (test code = 2217) 131 MG/DL BUN (test code = 2208) 13 MG/DL CREATININE (test code = 2214) 0.65 MG/DL eGFR AMER. (test code 113 ML/MIN/1.73 = 21782) eGFR NON- AMER. (test 97 ML/MIN/1.73 code = 81390) CALC BUN/CREAT (test code = 20 RATIO [...] code = 2219) 23 U/L COMPREHENSIVE METABOLIC [id number] 00:00:00 Test Item Value Reference Range Interpretation Comments GLUCOSE (test code = 2217) 131 MG/DL BUN (test code = 2208) 13 MG/DL CREATININE (test code = 2214) 0.65 MG/DL eGFR AMER. (test code 113 ML/MIN/1.73 = 98321) eGFR NON- AMER. (test 97 ML/MIN/1.73 code = 11057) CALC BUN/CREAT (test code = 20 RATIO [...] (test code = 2219) 23 U/L HEMOGLOBIN [id number] 00:00:00 Test Item Value Reference Range Interpretation Comments HEMOGLOBIN A1c (test code = 05268) 6.8 % HEMOGLOBIN [id number] 00:00:00 Test Item Value Reference Range Interpretation Comments HEMOGLOBIN A1c (test code = 88561) 6.8 % LIPID [id number] 00:00:00 Test Item Value Reference Range Interpretation Comments CHOLESTEROL (test code = 2210) 303 MG/DL TRIGLYCERIDES (test code = 2232) 191 MG/DL HDL CHOLESTEROL (test code = 2220) 61 MG/DL CALC LDL CHOL (test code = 2237) 205 MG/DL RISK RATIO LDL/HDL (test code = 3.36 RATIO 2238) [id number] 00:00:00 Test Item Value Reference Range Interpretation Comments TSH, THIRD GENERATION (test code 0.769 UIU/ML = 2821) [id number] 00:00:00 Test Item Value Reference Range Interpretation Comments TSH, THIRD GENERATION (test code 0.769 UIU/ML = 2821) COMPREHENSIVE METABOLIC [id number] 00:00:00 Test Item Value Reference Range Interpretation Comments GLUCOSE (test code = 2217) 131 MG/DL BUN (test code = 2208) 13 MG/DL CREATININE (test code = 2214) 0.65 MG/DL eGFR AMER. (test code 113 ML/MIN/1.73 = 45935) eGFR NON- AMER. (test 97 ML/MIN/1.73 code = 81313) CALC BUN/CREAT (test code = 20 RATIO [...] (test code = 2219) 23 U/L HEMOGLOBIN [id number] 00:00:00 Test Item Value Reference Range Interpretation Comments HEMOGLOBIN A1c (test code = 05222) 6.8 % HEMOGLOBIN [id number] 00:00:00 Test Item Value Reference Range Interpretation Comments HEMOGLOBIN A1c (test code = 84134) 6.8 % HEMOGLOBIN [id number] 00:00:00 Test Item Value Reference Range Interpretation Comments HEMOGLOBIN A1c (test code = 87373) 6.8 % LIPID [id number] 00:00:00 Test Item Value Reference Range Interpretation Comments CHOLESTEROL (test code = 2210) 303 MG/DL TRIGLYCERIDES (test code = 2232) 191 MG/DL HDL CHOLESTEROL (test code = 2220) 61 MG/DL CALC LDL CHOL (test code = 2237) 205 MG/DL RISK RATIO LDL/HDL (test code = 3.36 RATIO 2238) LIPID [id number] 00:00:00 Test Item Value Reference Range Interpretation Comments CHOLESTEROL (test code = 2210) 303 MG/DL TRIGLYCERIDES (test code = 2232) 191 MG/DL HDL CHOLESTEROL (test code = 2220) 61 MG/DL CALC LDL CHOL (test code = 2237) 205 MG/DL RISK RATIO LDL/HDL (test code = 3.36 RATIO 2238) [id number] 00:00:00 Test Item Value Reference Range Interpretation Comments TSH, THIRD GENERATION (test code 0.769 UIU/ML = 2821) [id number] 00:00:00 Test Item Value Reference Range Interpretation Comments TSH, THIRD GENERATION (test code 0.769 UIU/ML = 2821) [id number] 00:00:00 Test Item Value Reference Range Interpretation Comments TSH, THIRD GENERATION (test code 0.769 UIU/ML = 2821) COMPREHENSIVE METABOLIC [id number] 00:00:00 Test Item Value Reference Range Interpretation Comments GLUCOSE (test code = 2217) 131 MG/DL BUN (test code = 2208) 13 MG/DL CREATININE (test code = 2214) 0.65 MG/DL eGFR AMER. (test code 113 ML/MIN/1.73 = 31443) eGFR NON- AMER. (test 97 ML/MIN/1.73 code = 77938) CALC BUN/CREAT (test code = 20 RATIO [...] code = 2219) 23 U/L COMPREHENSIVE METABOLIC [id number] 00:00:00 Test Item Value Reference Range Interpretation Comments GLUCOSE (test code = 2217) 131 MG/DL BUN (test code = 2208) 13 MG/DL CREATININE (test code = 2214) 0.65 MG/DL eGFR AMER. (test code 113 ML/MIN/1.73 = 60919) eGFR NON- AMER. (test 97 ML/MIN/1.73 code = 11514) CALC BUN/CREAT (test code = 20 RATIO [...] (test code = 2219) 23 U/L HEMOGLOBIN [id number] 00:00:00 Test Item Value Reference Range Interpretation Comments HEMOGLOBIN A1c (test code = 83118) 6.6 % HEMOGLOBIN [id number] 00:00:00 Test Item Value Reference Range Interpretation Comments HEMOGLOBIN A1c (test code = 90884) 6.6 % HEMOGLOBIN [id number] 00:00:00 Test Item Value Reference Range Interpretation Comments HEMOGLOBIN A1c (test code = 64980) 6.6 % LIPID [id number] 00:00:00 Test Item Value Reference Range Interpretation Comments CHOLESTEROL (test code = 2210) 261 MG/DL TRIGLYCERIDES (test code = 2232) 159 MG/DL HDL CHOLESTEROL (test code = 2220) 82 MG/DL CALC LDL CHOL (test code = 2237) 150 MG/DL RISK RATIO LDL/HDL (test code = 1.83 RATIO 2238) LIPID [id number] 00:00:00 Test Item Value Reference Range Interpretation Comments CHOLESTEROL (test code = 2210) 261 MG/DL TRIGLYCERIDES (test code = 2232) 159 MG/DL HDL CHOLESTEROL (test code = 2220) 82 MG/DL CALC LDL CHOL (test code = 2237) 150 MG/DL RISK RATIO LDL/HDL (test code = 1.83 RATIO 2238) COMPREHENSIVE METABOLIC [id number] 00:00:00 Test Item Value Reference Range Interpretation Comments GLUCOSE (test code = 2217) 144 MG/DL BUN (test code = 2208) 15 MG/DL CREATININE (test code = 2214) 0.85 MG/DL eGFR AMER. (test code 87 ML/MIN/1.73 = 86803) eGFR NON- AMER. (test 75 ML/MIN/1.73 code = 94170) CALC BUN/CREAT (test code = 18 RATIO [...] code = 2219) 50 U/L COMPREHENSIVE METABOLIC [id number] 00:00:00 Test Item Value Reference Range Interpretation Comments GLUCOSE (test code = 2217) 144 MG/DL BUN (test code = 2208) 15 MG/DL CREATININE (test code = 2214) 0.85 MG/DL eGFR AMER. (test code 87 ML/MIN/1.73 = 02582) eGFR NON- AMER. (test 75 ML/MIN/1.73 code = 47971) CALC BUN/CREAT (test code = 18 RATIO [...] THYROX. BIND. CAPAC. (test code 1.1 = 65873) T4 (THYROXINE) (test code = 4.3 UG/DL 2819) CORRECTED T4 (FTI) (test code = 3.9 UG/DL 2820) TSH, THIRD GENERATION (test 18.900 UIU/ML code = 2821) THYROID II PROFILE (T3U, T4, T7, TSH)[id number] 00:00:00 Test Item Value Reference Range Interpretation Comments T-UPTAKE (test code = 2817) 30.2 % THYROX. BIND. CAPAC. (test code 1.1 = 41906) T4 (THYROXINE) (test code = 4.3 UG/DL 2819) CORRECTED T4 (FTI) (test code = 3.9 UG/DL 2820) TSH, THIRD GENERATION (test 18.900 UIU/ML code = 2821) HEMOGLOBIN [id number] 00:00:00 Test Item Value Reference Range Interpretation Comments HEMOGLOBIN A1c (test code = 30130) 6.6 % HEMOGLOBIN [id number] 00:00:00 Test Item Value Reference Range Interpretation Comments HEMOGLOBIN A1c (test code = 89052) 6.6 % HEMOGLOBIN [id number] 00:00:00 Test Item Value Reference Range Interpretation Comments HEMOGLOBIN A1c (test code = 24550) 6.6 % LIPID [id number] 00:00:00 Test Item Value Reference Range Interpretation Comments CHOLESTEROL (test code = 2210) 261 MG/DL TRIGLYCERIDES (test code = 2232) 159 MG/DL HDL CHOLESTEROL (test code = 2220) 82 MG/DL CALC LDL CHOL (test code = 2237) 150 MG/DL RISK RATIO LDL/HDL (test code = 1.83 RATIO 2238) LIPID [id number] 00:00:00 Test Item Value Reference Range Interpretation Comments CHOLESTEROL (test code = 2210) 261 MG/DL TRIGLYCERIDES (test code = 2232) 159 MG/DL HDL CHOLESTEROL (test code = 2220) 82 MG/DL CALC LDL CHOL (test code = 2237) 150 MG/DL RISK RATIO LDL/HDL (test code = 1.83 RATIO 2238) COMPREHENSIVE METABOLIC [id number] 00:00:00 Test Item Value Reference Range Interpretation Comments GLUCOSE (test code = 2217) 144 MG/DL BUN (test code = 2208) 15 MG/DL CREATININE (test code = 2214) 0.85 MG/DL eGFR AMER. (test code 87 ML/MIN/1.73 = 43380) eGFR NON- AMER. (test 75 ML/MIN/1.73 code = 31270) CALC BUN/CREAT (test code = 18 RATIO [...] code = 2219) 50 U/L COMPREHENSIVE METABOLIC [id number] 00:00:00 Test Item Value Reference Range Interpretation Comments GLUCOSE (test code = 2217) 144 MG/DL BUN (test code = 2208) 15 MG/DL CREATININE (test code = 2214) 0.85 MG/DL eGFR AMER. (test code 87 ML/MIN/1.73 = 31188) eGFR NON- AMER. (test 75 ML/MIN/1.73 code = 90650) CALC BUN/CREAT (test code = 18 RATIO [...] THYROX. BIND. CAPAC. (test code 1.1 = 73606) T4 (THYROXINE) (test code = 4.3 UG/DL 2819) CORRECTED T4 (FTI) (test code = 3.9 UG/DL 2820) TSH, THIRD GENERATION (test 18.900 UIU/ML code = 2821) THYROID II PROFILE (T3U, T4, T7, TSH)2020-05-23 00:00:00 Test Item Value Reference Range Interpretation Comments T-UPTAKE (test code = 7) 30.2 % THYROX. BIND. CAPAC. (test code 1.1 = 09400) T4 (THYROXINE) (test code = 4.3 UG/DL 2819) CORRECTED T4 (FTI) (test code = 3.9 UG/DL 2820) TSH, THIRD GENERATION (test 18.900 UIU/ML code = 2821) HEMOGLOBIN [id number] 00:00:00 Test Item Value Reference Range Interpretation Comments HEMOGLOBIN A1c (test code = 49937) 6.6 % HEMOGLOBIN [id number] 00:00:00 Test Item Value Reference Range Interpretation Comments HEMOGLOBIN A1c (test code = 25360) 6.6 % LIPID [id number] 00:00:00 Test Item Value Reference Range Interpretation Comments CHOLESTEROL (test code = 2210) 261 MG/DL TRIGLYCERIDES (test code = 2232) 159 MG/DL HDL CHOLESTEROL (test code = 2220) 82 MG/DL CALC LDL CHOL (test code = 2237) 150 MG/DL RISK RATIO LDL/HDL (test code = 1.83 RATIO 2238) COMPREHENSIVE METABOLIC [id number] 00:00:00 Test Item Value Reference Range Interpretation Comments GLUCOSE (test code = 2217) 144 MG/DL BUN (test code = 2208) 15 MG/DL CREATININE (test code = 2214) 0.85 MG/DL eGFR AMER. (test code 87 ML/MIN/1.73 = 96831) eGFR NON- AMER. (test 75 ML/MIN/1.73 code = 63416) CALC BUN/CREAT (test code = 18 RATIO [...] THYROX. BIND. CAPAC. (test code 1.1 = 41946) T4 (THYROXINE) (test code = 4.3 UG/DL 2819) CORRECTED T4 (FTI) (test code = 3.9 UG/DL 2820) TSH, THIRD GENERATION (test 18.900 UIU/ML code = 2821) HEMOGLOBIN [id number] 00:00:00 Test Item Value Reference Range Interpretation Comments HEMOGLOBIN A1c (test code = 30716) 6.6 % HEMOGLOBIN [id number] 00:00:00 Test Item Value Reference Range Interpretation Comments HEMOGLOBIN A1c (test code = 43279) 6.6 % HEMOGLOBIN [id number] 00:00:00 Test Item Value Reference Range Interpretation Comments HEMOGLOBIN A1c (test code = 69895) 6.6 % LIPID [id number] 00:00:00 Test Item Value Reference Range Interpretation Comments CHOLESTEROL (test code = 2210) 261 MG/DL TRIGLYCERIDES (test code = 2232) 159 MG/DL HDL CHOLESTEROL (test code = 2220) 82 MG/DL CALC LDL CHOL (test code = 2237) 150 MG/DL RISK RATIO LDL/HDL (test code = 1.83 RATIO 2238) LIPID [id number] 00:00:00 Test Item Value Reference Range Interpretation Comments CHOLESTEROL (test code = 2210) 261 MG/DL TRIGLYCERIDES (test code = 2232) 159 MG/DL HDL CHOLESTEROL (test code = 2220) 82 MG/DL CALC LDL CHOL (test code = 2237) 150 MG/DL RISK RATIO LDL/HDL (test code = 1.83 RATIO 2238) COMPREHENSIVE METABOLIC [id number] 00:00:00 Test Item Value Reference Range Interpretation Comments GLUCOSE (test code = 2217) 144 MG/DL BUN (test code = 2208) 15 MG/DL CREATININE (test code = 2214) 0.85 MG/DL eGFR AMER. (test code 87 ML/MIN/1.73 = 62535) eGFR NON- AMER. (test 75 ML/MIN/1.73 code = 21565) CALC BUN/CREAT (test code = 18 RATIO [...] code = 2219) 50 U/L COMPREHENSIVE METABOLIC [id number] 00:00:00 Test Item Value Reference Range Interpretation Comments GLUCOSE (test code = 2217) 144 MG/DL BUN (test code = 2208) 15 MG/DL CREATININE (test code = 2214) 0.85 MG/DL eGFR AMER. (test code 87 ML/MIN/1.73 = 12906) eGFR NON- AMER. (test 75 ML/MIN/1.73 code = 41381) CALC BUN/CREAT (test code = 18 RATIO [...] THYROX. BIND. CAPAC. (test code 1.1 = 02118) T4 (THYROXINE) (test code = 4.3 UG/DL 2819) CORRECTED T4 (FTI) (test code = 3.9 UG/DL 2820) TSH, THIRD GENERATION (test 18.900 UIU/ML code = 2821) THYROID II PROFILE (T3U, T4, T7, TSH)[id number] 00:00:00 Test Item Value Reference Range Interpretation Comments T-UPTAKE (test code = 281) 30.2 % THYROX. BIND. CAPAC. (test code 1.1 = 36141) T4 (THYROXINE) (test code = 4.3 UG/DL 2819) CORRECTED T4 (FTI) (test code = 3.9 UG/DL 2820) TSH, THIRD GENERATION (test 18.900 UIU/ML code = 2821) HEMOGLOBIN [id number] 00:00:00 Test Item Value Reference Range Interpretation Comments HEMOGLOBIN A1c (test code = 77816) 6.7 % HEMOGLOBIN [id number] 00:00:00 Test Item Value Reference Range Interpretation Comments HEMOGLOBIN A1c (test code = 59366) 6.7 % HEMOGLOBIN [id number] 00:00:00 Test Item Value Reference Range Interpretation Comments HEMOGLOBIN A1c (test code = 56473) 6.7 % LIPID [id number] 00:00:00 Test Item Value Reference Range Interpretation Comments CHOLESTEROL (test code = 2210) 267 MG/DL TRIGLYCERIDES (test code = 2232) 137 MG/DL HDL CHOLESTEROL (test code = 2220) 48 MG/DL CALC LDL CHOL (test code = 2237) 192 MG/DL RISK RATIO LDL/HDL (test code = 4.00 RATIO 2238) LIPID [id number] 00:00:00 Test Item Value Reference Range Interpretation Comments CHOLESTEROL (test code = 2210) 267 MG/DL TRIGLYCERIDES (test code = 2232) 137 MG/DL HDL CHOLESTEROL (test code = 2220) 48 MG/DL CALC LDL CHOL (test code = 2237) 192 MG/DL RISK RATIO LDL/HDL (test code = 4.00 RATIO 2238) COMPREHENSIVE METABOLIC [id number] 00:00:00 Test Item Value Reference Range Interpretation Comments GLUCOSE (test code = 2217) 155 MG/DL BUN (test code = 2208) 14 MG/DL CREATININE (test code = 2214) 0.52 MG/DL eGFR AMER. (test code 122 ML/MIN/1.73 = 23323) eGFR NON- AMER. (test 105 ML/MIN/1.73 code = 40355) CALC BUN/CREAT (test code = 27 RATIO [...] code = 2219) 27 U/L COMPREHENSIVE METABOLIC [id number] 00:00:00 Test Item Value Reference Range Interpretation Comments GLUCOSE (test code = 2217) 155 MG/DL BUN (test code = 2208) 14 MG/DL CREATININE (test code = 2214) 0.52 MG/DL eGFR AMER. (test code 122 ML/MIN/1.73 = 09189) eGFR NON- AMER. (test 105 ML/MIN/1.73 code = 34694) CALC BUN/CREAT (test code = 27 RATIO 2235) SODIUM (test code = 2231) 142 MEQ/L POTASSIUM (test code = 2228) 4.4 MEQ/L CHLORIDE (test code = 2215) 104 MEQ/L CARBON DIOXIDE (test code = 25 MEQ/L 6) CALCIUM (test code = 2209) 9.2 MG/DL [...] THYROX. BIND. CAPAC. (test code 1.0 = 30029) T4 (THYROXINE) (test code = 4.7 UG/DL 2819) CORRECTED T4 (FTI) (test code = 4.7 UG/DL 2820) TSH, THIRD GENERATION (test code 0.201 UIU/ML = 2821) THYROID II PROFILE (T3U, T4, T7, TSH)2019 00:00:00 Test Item Value Reference Range Interpretation Comments T-UPTAKE (test code = 2817) 33.1 % THYROX. BIND. CAPAC. (test code 1.0 = 22407) T4 (THYROXINE) (test code = 4.7 UG/DL 2819) CORRECTED T4 (FTI) (test code = 4.7 UG/DL 2820) TSH, THIRD GENERATION (test code 0.201 UIU/ML = 2821) HEMOGLOBIN [id number] 00:00:00 Test Item Value Reference Range Interpretation Comments HEMOGLOBIN A1c (test code = 25010) 6.7 % HEMOGLOBIN [id number] 00:00:00 Test Item Value Reference Range Interpretation Comments HEMOGLOBIN A1c (test code = 91435) 6.7 % HEMOGLOBIN [id number] 00:00:00 Test Item Value Reference Range Interpretation Comments HEMOGLOBIN A1c (test code = 56371) 6.7 % LIPID [id number] 00:00:00 Test Item Value Reference Range Interpretation Comments CHOLESTEROL (test code = 2210) 267 MG/DL TRIGLYCERIDES (test code = 2232) 137 MG/DL HDL CHOLESTEROL (test code = 2220) 48 MG/DL CALC LDL CHOL (test code = 2237) 192 MG/DL RISK RATIO LDL/HDL (test code = 4.00 RATIO 2238) LIPID [id number] 00:00:00 Test Item Value Reference Range Interpretation Comments CHOLESTEROL (test code = 2210) 267 MG/DL TRIGLYCERIDES (test code = 2232) 137 MG/DL HDL CHOLESTEROL (test code = 2220) 48 MG/DL CALC LDL CHOL (test code = 2237) 192 MG/DL RISK RATIO LDL/HDL (test code = 4.00 RATIO 2238) COMPREHENSIVE METABOLIC [id number] 00:00:00 Test Item Value Reference Range Interpretation Comments GLUCOSE (test code = 2217) 155 MG/DL BUN (test code = 2208) 14 MG/DL CREATININE (test code = 2214) 0.52 MG/DL eGFR AMER. (test code 122 ML/MIN/1.73 = 56624) eGFR NON- AMER. (test 105 ML/MIN/1.73 code = 98995) CALC BUN/CREAT (test code = 27 RATIO [...] code = 2219) 27 U/L COMPREHENSIVE METABOLIC [id number] 00:00:00 Test Item Value Reference Range Interpretation Comments GLUCOSE (test code = 2217) 155 MG/DL BUN (test code = 2208) 14 MG/DL CREATININE (test code = 2214) 0.52 MG/DL eGFR AMER. (test code 122 ML/MIN/1.73 = 28938) eGFR NON- AMER. (test 105 ML/MIN/1.73 code = 32205) CALC BUN/CREAT (test code = 27 RATIO [...] THYROX. BIND. CAPAC. (test code 1.0 = 31630) T4 (THYROXINE) (test code = 4.7 UG/DL 2819) CORRECTED T4 (FTI) (test code = 4.7 UG/DL 2820) TSH, THIRD GENERATION (test code 0.201 UIU/ML = 2821) THYROID II PROFILE (T3U, T4, T7, TSH)2019 00:00:00 Test Item Value Reference Range Interpretation Comments T-UPTAKE (test code = 2817) 33.1 % THYROX. BIND. CAPAC. (test code 1.0 = 37805) T4 (THYROXINE) (test code = 4.7 UG/DL 2819) CORRECTED T4 (FTI) (test code = 4.7 UG/DL 2820) TSH, THIRD GENERATION (test code 0.201 UIU/ML = 2821) HEMOGLOBIN [id number] 00:00:00 Test Item Value Reference Range Interpretation Comments HEMOGLOBIN A1c (test code = 18011) 6.7 % HEMOGLOBIN [id number] 00:00:00 Test Item Value Reference Range Interpretation Comments HEMOGLOBIN A1c (test code = 52865) 6.7 % LIPID [id number] 00:00:00 Test Item Value Reference Range Interpretation Comments CHOLESTEROL (test code = 2210) 267 MG/DL TRIGLYCERIDES (test code = 2232) 137 MG/DL HDL CHOLESTEROL (test code = 2220) 48 MG/DL CALC LDL CHOL (test code = 2237) 192 MG/DL RISK RATIO LDL/HDL (test code = 4.00 RATIO 2238) COMPREHENSIVE METABOLIC [id number] 00:00:00 Test Item Value Reference Range Interpretation Comments GLUCOSE (test code = 2217) 155 MG/DL BUN (test code = 2208) 14 MG/DL CREATININE (test code = 2214) 0.52 MG/DL eGFR AMER. (test code 122 ML/MIN/1.73 = 40303) eGFR NON- AMER. (test 105 ML/MIN/1.73 code = 61398) CALC BUN/CREAT (test code = 27 RATIO [...] THYROX. BIND. CAPAC. (test code 1.0 = 70739) T4 (THYROXINE) (test code = 4.7 UG/DL 2819) CORRECTED T4 (FTI) (test code = 4.7 UG/DL 2820) TSH, THIRD GENERATION (test code 0.201 UIU/ML = 2821) HEMOGLOBIN [id number] 00:00:00 Test Item Value Reference Range Interpretation Comments HEMOGLOBIN A1c (test code = 26597) 6.7 % HEMOGLOBIN [id number] 00:00:00 Test Item Value Reference Range Interpretation Comments HEMOGLOBIN A1c (test code = 55465) 6.7 % HEMOGLOBIN [id number] 00:00:00 Test Item Value Reference Range Interpretation Comments HEMOGLOBIN A1c (test code = 99372) 6.7 % LIPID [id number] 00:00:00 Test Item Value Reference Range Interpretation Comments CHOLESTEROL (test code = 2210) 267 MG/DL TRIGLYCERIDES (test code = 2232) 137 MG/DL HDL CHOLESTEROL (test code = 2220) 48 MG/DL CALC LDL CHOL (test code = 2237) 192 MG/DL RISK RATIO LDL/HDL (test code = 4.00 RATIO 2238) LIPID [id number] 00:00:00 Test Item Value Reference Range Interpretation Comments CHOLESTEROL (test code = 2210) 267 MG/DL TRIGLYCERIDES (test code = 2232) 137 MG/DL HDL CHOLESTEROL (test code = 2220) 48 MG/DL CALC LDL CHOL (test code = 2237) 192 MG/DL RISK RATIO LDL/HDL (test code = 4.00 RATIO 2238) COMPREHENSIVE METABOLIC [id number] 00:00:00 Test Item Value Reference Range Interpretation Comments GLUCOSE (test code = 2217) 155 MG/DL BUN (test code = 2208) 14 MG/DL CREATININE (test code = 2214) 0.52 MG/DL eGFR AMER. (test code 122 ML/MIN/1.73 = 79069) eGFR NON- AMER. (test 105 ML/MIN/1.73 code = 43594) CALC BUN/CREAT (test code = 27 RATIO [...] code = 2219) 27 U/L COMPREHENSIVE METABOLIC [id number] 00:00:00 Test Item Value Reference Range Interpretation Comments GLUCOSE (test code = 2217) 155 MG/DL BUN (test code = 2208) 14 MG/DL CREATININE (test code = 2214) 0.52 MG/DL eGFR AMER. (test code 122 ML/MIN/1.73 = 96928) eGFR NON- AMER. (test 105 ML/MIN/1.73 code = 36176) CALC BUN/CREAT (test code = 27 RATIO [...] THYROX. BIND. CAPAC. (test code 1.0 = 59616) T4 (THYROXINE) (test code = 4.7 UG/DL 2819) CORRECTED T4 (FTI) (test code = 4.7 UG/DL 2820) TSH, THIRD GENERATION (test code 0.201 UIU/ML = 2821) THYROID II PROFILE (T3U, T4, T7, TSH)2019 00:00:00 Test Item Value Reference Range Interpretation Comments T-UPTAKE (test code = 2817) 33.1 % THYROX. BIND. CAPAC. (test code 1.0 = 33861) T4 (THYROXINE) (test code = 4.7 UG/DL 2819) CORRECTED T4 (FTI) (test code = 4.7 UG/DL 2820) TSH, THIRD GENERATION (test code 0.201 UIU/ML = 2821) SARS-CoV-2 (COVID-19) by RT-PCR (HIGH RISK)2019-09-18 00:00:00 Test Item Value Reference Range Interpretation Comments SARS-CoV-2 INTERPRETATION (test NEGATIVE code = 76082) SOURCE (test code = 65975) NOT SPECIFIED SARS-CoV-2 (COVID-19) by RT-PCR (HIGH RISK)2019-09-18 00:00:00 Test Item Value Reference Range Interpretation Comments SARS-CoV-2 INTERPRETATION (test NEGATIVE code = 35416) SOURCE (test code = 97851) NOT SPECIFIED SARS-CoV-2 (COVID-19) by RT-PCR (HIGH RISK)2019-09-18 00:00:00 Test Item Value Reference Range Interpretation Comments SARS-CoV-2 INTERPRETATION (test NEGATIVE code = 42364) SOURCE (test code = 11923) NOT SPECIFIED SARS-CoV-2 (COVID-19) by RT-PCR (HIGH RISK)2019-09-18 00:00:00 Test Item Value Reference Range Interpretation Comments SARS-CoV-2 INTERPRETATION (test NEGATIVE code = 06245) SOURCE (test code = 18107) NOT SPECIFIED SARS-CoV-2 (COVID-19) by RT-PCR (HIGH RISK)2019-09-18 00:00:00 Test Item Value Reference Range Interpretation Comments SARS-CoV-2 INTERPRETATION (test NEGATIVE code = 39696) SOURCE (test code = 86931) NOT SPECIFIED SARS-CoV-2 (COVID-19) by RT-PCR (HIGH RISK)2019-09-18 00:00:00 Test Item Value Reference Range Interpretation Comments SARS-CoV-2 INTERPRETATION (test NEGATIVE code = 99483) SOURCE (test code = 89978) NOT SPECIFIED SARS-CoV-2 (COVID-19) by RT-PCR (HIGH RISK)2019-09-18 00:00:00 Test Item Value Reference Range Interpretation Comments SARS-CoV-2 INTERPRETATION (test NEGATIVE code = 49800) SOURCE (test code = 34202) NOT SPECIFIED [id number] 00:00:00 Test Item Value Reference Range Interpretation Comments TSH, THIRD GENERATION (test code 2.490 UIU/ML = 2821) [id number] 00:00:00 Test Item Value Reference Range Interpretation Comments TSH, THIRD GENERATION (test code 2.490 UIU/ML = 2821) [id number] 00:00:00 Test Item Value Reference Range Interpretation Comments TSH, THIRD GENERATION (test code 2.490 UIU/ML = 2821) HEMOGLOBIN [id number] 00:00:00 Test Item Value Reference Range Interpretation Comments HEMOGLOBIN A1c (test code = 00238) 6.4 % HEMOGLOBIN [id number] 00:00:00 Test Item Value Reference Range Interpretation Comments HEMOGLOBIN A1c (test code = 39577) 6.4 % HEMOGLOBIN [id number] 00:00:00 Test Item Value Reference Range Interpretation Comments HEMOGLOBIN A1c (test code = 16905) 6.4 % COMPREHENSIVE METABOLIC [id number] 00:00:00 Test Item Value Reference Range Interpretation Comments GLUCOSE (test code = 2217) 206 MG/DL BUN (test code = 2208) 23 MG/DL CREATININE (test code = 2214) 0.67 MG/DL eGFR AMER. (test code 112 ML/MIN/1.73 = 77157) eGFR NON- AMER. (test 97 ML/MIN/1.73 code = 79715) CALC BUN/CREAT (test code = 34 RATIO [...] code = 2219) 25 U/L COMPREHENSIVE METABOLIC [id number] 00:00:00 Test Item Value Reference Range Interpretation Comments GLUCOSE (test code = 2217) 206 MG/DL BUN (test code = 2208) 23 MG/DL CREATININE (test code = 2214) 0.67 MG/DL eGFR AMER. (test code 112 ML/MIN/1.73 = 66830) eGFR NON- AMER. (test 97 ML/MIN/1.73 code = 14231) CALC BUN/CREAT (test code = 34 RATIO [...] ALT (test code = 2219) 25 U/L [id number] 00:00:00 Test Item Value Reference Range Interpretation Comments TSH, THIRD GENERATION (test code 2.490 UIU/ML = 2821) [id number] 00:00:00 Test Item Value Reference Range Interpretation Comments TSH, THIRD GENERATION (test code 2.490 UIU/ML = 2821) [id number] 00:00:00 Test Item Value Reference Range Interpretation Comments TSH, THIRD GENERATION (test code 2.490 UIU/ML = 2821) HEMOGLOBIN [id number] 00:00:00 Test Item Value Reference Range Interpretation Comments HEMOGLOBIN A1c (test code = 11835) 6.4 % HEMOGLOBIN [id number] 00:00:00 Test Item Value Reference Range Interpretation Comments HEMOGLOBIN A1c (test code = 58455) 6.4 % HEMOGLOBIN [id number] 00:00:00 Test Item Value Reference Range Interpretation Comments HEMOGLOBIN A1c (test code = 29096) 6.4 % COMPREHENSIVE METABOLIC [id number] 00:00:00 Test Item Value Reference Range Interpretation Comments GLUCOSE (test code = 2217) 206 MG/DL BUN (test code = 2208) 23 MG/DL CREATININE (test code = 2214) 0.67 MG/DL eGFR AMER. (test code 112 ML/MIN/1.73 = 24164) eGFR NON- AMER. (test 97 ML/MIN/1.73 code = 28554) CALC BUN/CREAT (test code = 34 RATIO [...] code = 2219) 25 U/L COMPREHENSIVE METABOLIC [id number] 00:00:00 Test Item Value Reference Range Interpretation Comments GLUCOSE (test code = 2217) 206 MG/DL BUN (test code = 2208) 23 MG/DL CREATININE (test code = 2214) 0.67 MG/DL eGFR AMER. (test code 112 ML/MIN/1.73 = 68085) eGFR NON- AMER. (test 97 ML/MIN/1.73 code = 79936) CALC BUN/CREAT (test code = 34 RATIO [...] ALT (test code = 2219) 25 U/L [id number] 00:00:00 Test Item Value Reference Range Interpretation Comments TSH, THIRD GENERATION (test code 2.490 UIU/ML = 2821) [id number] 00:00:00 Test Item Value Reference Range Interpretation Comments TSH, THIRD GENERATION (test code 2.490 UIU/ML = 2821) HEMOGLOBIN [id number] 00:00:00 Test Item Value Reference Range Interpretation Comments HEMOGLOBIN A1c (test code = 29056) 6.4 % HEMOGLOBIN [id number] 00:00:00 Test Item Value Reference Range Interpretation Comments HEMOGLOBIN A1c (test code = 79493) 6.4 % COMPREHENSIVE METABOLIC [id number] 00:00:00 Test Item Value Reference Range Interpretation Comments GLUCOSE (test code = 2217) 206 MG/DL BUN (test code = 2208) 23 MG/DL CREATININE (test code = 2214) 0.67 MG/DL eGFR AMER. (test code 112 ML/MIN/1.73 = 35197) eGFR NON- AMER. (test 97 ML/MIN/1.73 code = 23807) CALC BUN/CREAT (test code = 34 RATIO [...] ALT (test code = 2219) 25 U/L [id number] 00:00:00 Test Item Value Reference Range Interpretation Comments TSH, THIRD GENERATION (test code 2.490 UIU/ML = 2821) [id number] 00:00:00 Test Item Value Reference Range Interpretation Comments TSH, THIRD GENERATION (test code 2.490 UIU/ML = 2821) [id number] 00:00:00 Test Item Value Reference Range Interpretation Comments TSH, THIRD GENERATION (test code 2.490 UIU/ML = 2821) HEMOGLOBIN [id number] 00:00:00 Test Item Value Reference Range Interpretation Comments HEMOGLOBIN A1c (test code = 83281) 6.4 % HEMOGLOBIN [id number] 00:00:00 Test Item Value Reference Range Interpretation Comments HEMOGLOBIN A1c (test code = 65055) 6.4 % HEMOGLOBIN [id number] 00:00:00 Test Item Value Reference Range Interpretation Comments HEMOGLOBIN A1c (test code = 03653) 6.4 % COMPREHENSIVE METABOLIC [id number] 00:00:00 Test Item Value Reference Range Interpretation Comments GLUCOSE (test code = 2217) 206 MG/DL BUN (test code = 2208) 23 MG/DL CREATININE (test code = 2214) 0.67 MG/DL eGFR AMER. (test code 112 ML/MIN/1.73 = 99358) eGFR NON- AMER. (test 97 ML/MIN/1.73 code = 61683) CALC BUN/CREAT (test code = 34 RATIO [...] code = 2219) 25 U/L COMPREHENSIVE METABOLIC [id number] 00:00:00 Test Item Value Reference Range Interpretation Comments GLUCOSE (test code = 2217) 206 MG/DL BUN (test code = 2208) 23 MG/DL CREATININE (test code = 2214) 0.67 MG/DL eGFR AMER. (test code 112 ML/MIN/1.73 = 17559) eGFR NON- AMER. (test 97 ML/MIN/1.73 code = 69332) CALC BUN/CREAT (test code = 34 RATIO [...] = 2219) 25 U/L VAGINAL PATHOGENS DNA [id number] 00:00:00 Test Item Value Reference Range Interpretation Comments MARK SPECIES (test code = 94353) NEGATIVE G. VAGINALIS (test code = 04815) NEGATIVE T. VAGINALIS (test code = 73723) NEGATIVE VAGINAL PATHOGENS DNA [id number] 00:00:00 Test Item Value Reference Range Interpretation Comments MARK SPECIES (test code = 24863) NEGATIVE G. VAGINALIS (test code = 20865) NEGATIVE T. VAGINALIS (test code = 23029) NEGATIVE VAGINAL PATHOGENS DNA [id number] 00:00:00 Test Item Value Reference Range Interpretation Comments MARK SPECIES (test code = 09034) NEGATIVE G. VAGINALIS (test code = 48098) NEGATIVE T. VAGINALIS (test code = 89862) NEGATIVE VAGINAL PATHOGENS DNA [id number] 00:00:00 Test Item Value Reference Range Interpretation Comments MARK SPECIES (test code = 88428) NEGATIVE G. VAGINALIS (test code = 93367) NEGATIVE T. VAGINALIS (test code = 34130) NEGATIVE VAGINAL PATHOGENS DNA [id number] 00:00:00 Test Item Value Reference Range Interpretation Comments MARK SPECIES (test code = 45666) NEGATIVE G. VAGINALIS (test code = 74706) NEGATIVE T. VAGINALIS (test code = 88635) NEGATIVE VAGINAL PATHOGENS DNA [id number] 00:00:00 Test Item Value Reference Range Interpretation Comments MARK SPECIES (test code = 62026) NEGATIVE G. VAGINALIS (test code = 07356) NEGATIVE T. VAGINALIS (test code = 78694) NEGATIVE VAGINAL PATHOGENS DNA [id number] 00:00:00 Test Item Value Reference Range Interpretation Comments MARK SPECIES (test code = 28064) NEGATIVE G. VAGINALIS (test code = 87701) NEGATIVE T. VAGINALIS (test code = 03584) NEGATIVE HEMOGLOBIN A1c [ADDED]2018-12-01 00:00:00 Test Item Value Reference Range Interpretation Comments HEMOGLOBIN A1c (test code = 75715) 6.7 % HEMOGLOBIN A1c [ADDED]2018-12-01 00:00:00 Test Item Value Reference Range Interpretation Comments HEMOGLOBIN A1c (test code = 76114) 6.7 % HEMOGLOBIN A1c [ADDED]2018-12-01 00:00:00 Test Item Value Reference Range Interpretation Comments HEMOGLOBIN A1c (test code = 07535) 6.7 % COMPREHENSIVE METABOLIC PANEL [ADDED]2018-12-01 00:00:00 Test Item Value Reference Range Interpretation Comments GLUCOSE (test code = 2217) 136 MG/DL BUN (test code = 2208) 15 MG/DL CREATININE (test code = 2214) 0.64 MG/DL eGFR AMER. (test code 115 ML/MIN/1.73 = 80498) eGFR NON- AMER. (test 99 ML/MIN/1.73 code = 60520) CALC BUN/CREAT (test code = 23 RATIO [...] eGFR AMER. (test code 115 ML/MIN/1.73 = 41775) eGFR NON- AMER. (test 99 ML/MIN/1.73 code = 65415) CALC BUN/CREAT (test code = 23 RATIO 2234) SODIUM (test code = 2231) [...] Interpretation Comments HEMOGLOBIN A1c (test code = 91946) 6.7 % HEMOGLOBIN A1c [ADDED]2018-12-01 00:00:00 Test Item Value Reference Range Interpretation Comments HEMOGLOBIN A1c (test code = 89377) 6.7 % HEMOGLOBIN A1c [ADDED]2018-12-01 00:00:00 Test Item Value Reference Range Interpretation Comments HEMOGLOBIN A1c (test code = 32513) 6.7 % COMPREHENSIVE METABOLIC PANEL [ADDED]2018-12-01 00:00:00 Test Item Value Reference Range Interpretation Comments GLUCOSE (test code = 2217) 136 MG/DL BUN (test code = 2208) 15 MG/DL CREATININE (test code = 2214) 0.64 MG/DL eGFR AMER. (test code 115 ML/MIN/1.73 = 12830) eGFR NON- AMER. (test 99 ML/MIN/1.73 code = 62093) CALC BUN/CREAT (test code = 23 RATIO [...] eGFR AMER. (test code 115 ML/MIN/1.73 = 75785) eGFR NON- AMER. (test 99 ML/MIN/1.73 code = 29804) CALC BUN/CREAT (test code = 23 RATIO [...] Interpretation Comments HEMOGLOBIN A1c (test code = 73075) 6.7 % HEMOGLOBIN A1c [ADDED]2018-12-01 00:00:00 Test Item Value Reference Range Interpretation Comments HEMOGLOBIN A1c (test code = 58433) 6.7 % COMPREHENSIVE METABOLIC PANEL [ADDED]2018-12-01 00:00:00 Test Item Value Reference Range Interpretation Comments GLUCOSE (test code = 2217) 136 MG/DL BUN (test code = 2208) 15 MG/DL CREATININE (test code = 2214) 0.64 MG/DL eGFR AMER. (test code 115 ML/MIN/1.73 = 53168) eGFR NON- AMER. (test 99 ML/MIN/1.73 code = 88349) CALC BUN/CREAT (test code = 23 RATIO [...] Interpretation Comments HEMOGLOBIN A1c (test code = 23307) 6.7 % HEMOGLOBIN A1c [ADDED]2018-12-01 00:00:00 Test Item Value Reference Range Interpretation Comments HEMOGLOBIN A1c (test code = 02925) 6.7 % HEMOGLOBIN A1c [ADDED]2018-12-01 00:00:00 Test Item Value Reference Range Interpretation Comments HEMOGLOBIN A1c (test code = 16692) 6.7 % COMPREHENSIVE METABOLIC PANEL [ADDED]2018-12-01 00:00:00 Test Item Value Reference Range Interpretation Comments GLUCOSE (test code = 2217) 136 MG/DL BUN (test code = 2208) 15 MG/DL CREATININE (test code = 2214) 0.64 MG/DL eGFR AMER. (test code 115 ML/MIN/1.73 = 88179) eGFR NON- AMER. (test 99 ML/MIN/1.73 code = 66976) CALC BUN/CREAT (test code = 23 RATIO [...] eGFR AMER. (test code 115 ML/MIN/1.73 = 57910) eGFR NON- AMER. (test 99 ML/MIN/1.73 code = 27669) CALC BUN/CREAT (test code = 23 RATIO [...] code 1.280 UIU/ML = 2821) CBC W/AUTO [id number] 00:00:00 Test Item Value Reference Range Interpretation [...] code = 1015) 346 K/UL CBC W/AUTO [id number] 00:00:00 Test Item Value Reference Range Interpretation [...] code = 1015) 346 K/UL CBC W/AUTO [id number] 00:00:00 Test Item Value Reference Range Interpretation [...] (test code = 1015) 346 K/UL HEMOGLOBIN [id number] 00:00:00 Test Item Value Reference Range Interpretation Comments HEMOGLOBIN A1c (test code = 34563) 5.9 % HEMOGLOBIN [id number] 00:00:00 Test Item Value Reference Range Interpretation Comments HEMOGLOBIN A1c (test code = 68655) 5.9 % HEMOGLOBIN [id number] 00:00:00 Test Item Value Reference Range Interpretation Comments HEMOGLOBIN A1c (test code = 55838) 5.9 % LIPID [id number] 00:00:00 Test Item Value Reference Range Interpretation Comments CHOLESTEROL (test code = 2210) 318 MG/DL TRIGLYCERIDES (test code = 2232) 263 MG/DL HDL CHOLESTEROL (test code = 2220) 51 MG/DL CALC LDL CHOL (test code = 2237) 214 MG/DL RISK RATIO LDL/HDL (test code = 4.20 RATIO 2238) LIPID [id number] 00:00:00 Test Item Value Reference Range Interpretation Comments CHOLESTEROL (test code = 2210) 318 MG/DL TRIGLYCERIDES (test code = 2232) 263 MG/DL HDL CHOLESTEROL (test code = 2220) 51 MG/DL CALC LDL CHOL (test code = 2237) 214 MG/DL RISK RATIO LDL/HDL (test code = 4.20 RATIO 2238) COMPREHENSIVE METABOLIC [id number] 00:00:00 Test Item Value Reference Range Interpretation Comments GLUCOSE (test code = 2217) 113 MG/DL BUN (test code = 2208) 18 MG/DL CREATININE (test code = 2214) 0.70 MG/DL eGFR AMER. (test code 111 ML/MIN/1.73 = 04427) eGFR NON- AMER. (test 96 ML/MIN/1.73 code = 05603) CALC BUN/CREAT (test code = 26 RATIO [...] code = 2219) 31 U/L COMPREHENSIVE METABOLIC [id number] 00:00:00 Test Item Value Reference Range Interpretation Comments GLUCOSE (test code = 2217) 113 MG/DL BUN (test code = 2208) 18 MG/DL CREATININE (test code = 2214) 0.70 MG/DL eGFR AMER. (test code 111 ML/MIN/1.73 = 05347) eGFR NON- AMER. (test 96 ML/MIN/1.73 code = 75611) CALC BUN/CREAT (test code = 26 RATIO [...] ALT (test code = 2219) 31 U/L [id number] 00:00:00 Test Item Value Reference Range Interpretation Comments TSH, THIRD GENERATION (test code 2.520 UIU/ML = 2821) [id number] 00:00:00 Test Item Value Reference Range Interpretation Comments TSH, THIRD GENERATION (test code 2.520 UIU/ML = 2821) [id number] 00:00:00 Test Item Value Reference Range Interpretation Comments TSH, THIRD GENERATION (test code 2.520 UIU/ML = 2821) CBC W/AUTO [id number] 00:00:00 Test Item Value Reference Range Interpretation [...] code = 1015) 346 K/UL CBC W/AUTO [id number] 00:00:00 Test Item Value Reference Range Interpretation [...] code = 1015) 346 K/UL CBC W/AUTO [id number] 00:00:00 Test Item Value Reference Range Interpretation [...] (test code = 1015) 346 K/UL HEMOGLOBIN [id number] 00:00:00 Test Item Value Reference Range Interpretation Comments HEMOGLOBIN A1c (test code = 06572) 5.9 % HEMOGLOBIN [id number] 00:00:00 Test Item Value Reference Range Interpretation Comments HEMOGLOBIN A1c (test code = 64513) 5.9 % HEMOGLOBIN [id number] 00:00:00 Test Item Value Reference Range Interpretation Comments HEMOGLOBIN A1c (test code = 92617) 5.9 % LIPID [id number] 00:00:00 Test Item Value Reference Range Interpretation Comments CHOLESTEROL (test code = 2210) 318 MG/DL TRIGLYCERIDES (test code = 2232) 263 MG/DL HDL CHOLESTEROL (test code = 2220) 51 MG/DL CALC LDL CHOL (test code = 2237) 214 MG/DL RISK RATIO LDL/HDL (test code = 4.20 RATIO 2238) LIPID [id number] 00:00:00 Test Item Value Reference Range Interpretation Comments CHOLESTEROL (test code = 2210) 318 MG/DL TRIGLYCERIDES (test code = 2232) 263 MG/DL HDL CHOLESTEROL (test code = 2220) 51 MG/DL CALC LDL CHOL (test code = 2237) 214 MG/DL RISK RATIO LDL/HDL (test code = 4.20 RATIO 2238) COMPREHENSIVE METABOLIC [id number] 00:00:00 Test Item Value Reference Range Interpretation Comments GLUCOSE (test code = 2217) 113 MG/DL BUN (test code = 2208) 18 MG/DL CREATININE (test code = 2214) 0.70 MG/DL eGFR AMER. (test code 111 ML/MIN/1.73 = 62976) eGFR NON- AMER. (test 96 ML/MIN/1.73 code = 06112) CALC BUN/CREAT (test code = 26 RATIO [...] code = 2219) 31 U/L COMPREHENSIVE METABOLIC [id number] 00:00:00 Test Item Value Reference Range Interpretation Comments GLUCOSE (test code = 2217) 113 MG/DL BUN (test code = 2208) 18 MG/DL CREATININE (test code = 2214) 0.70 MG/DL eGFR AMER. (test code 111 ML/MIN/1.73 = 51984) eGFR NON- AMER. (test 96 ML/MIN/1.73 code = 00688) CALC BUN/CREAT (test code = 26 RATIO [...] ALT (test code = 2219) 31 U/L [id number] 00:00:00 Test Item Value Reference Range Interpretation Comments TSH, THIRD GENERATION (test code 2.520 UIU/ML = 2821) [id number] 00:00:00 Test Item Value Reference Range Interpretation Comments TSH, THIRD GENERATION (test code 2.520 UIU/ML = 2821) [id number] 00:00:00 Test Item Value Reference Range Interpretation Comments TSH, THIRD GENERATION (test code 2.520 UIU/ML = 2821) CBC W/AUTO [id number] 00:00:00 Test Item Value Reference Range Interpretation [...] code = 1015) 346 K/UL CBC W/AUTO [id number] 00:00:00 Test Item Value Reference Range Interpretation [...] (test code = 1015) 346 K/UL HEMOGLOBIN [id number] 00:00:00 Test Item Value Reference Range Interpretation Comments HEMOGLOBIN A1c (test code = 67852) 5.9 % HEMOGLOBIN [id number] 00:00:00 Test Item Value Reference Range Interpretation Comments HEMOGLOBIN A1c (test code = 16443) 5.9 % LIPID [id number] 00:00:00 Test Item Value Reference Range Interpretation Comments CHOLESTEROL (test code = 2210) 318 MG/DL TRIGLYCERIDES (test code = 2232) 263 MG/DL HDL CHOLESTEROL (test code = 2220) 51 MG/DL CALC LDL CHOL (test code = 2237) 214 MG/DL RISK RATIO LDL/HDL (test code = 4.20 RATIO 2238) COMPREHENSIVE METABOLIC [id number] 00:00:00 Test Item Value Reference Range Interpretation Comments GLUCOSE (test code = 2217) 113 MG/DL BUN (test code = 2208) 18 MG/DL CREATININE (test code = 2214) 0.70 MG/DL eGFR AMER. (test code 111 ML/MIN/1.73 = 11475) eGFR NON- AMER. (test 96 ML/MIN/1.73 code = 91018) CALC BUN/CREAT (test code = 26 RATIO [...] ALT (test code = 2219) 31 U/L [id number] 00:00:00 Test Item Value Reference Range Interpretation Comments TSH, THIRD GENERATION (test code 2.520 UIU/ML = 2821) [id number] 00:00:00 Test Item Value Reference Range Interpretation Comments TSH, THIRD GENERATION (test code 2.520 UIU/ML = 2821) CBC W/AUTO [id number] 00:00:00 Test Item Value Reference Range Interpretation [...] code = 1015) 346 K/UL CBC W/AUTO [id number] 00:00:00 Test Item Value Reference Range Interpretation [...] code = 1015) 346 K/UL CBC W/AUTO [id number] 00:00:00 Test Item Value Reference Range Interpretation [...] (test code = 1015) 346 K/UL HEMOGLOBIN [id number] 00:00:00 Test Item Value Reference Range Interpretation Comments HEMOGLOBIN A1c (test code = 75185) 5.9 % HEMOGLOBIN [id number] 00:00:00 Test Item Value Reference Range Interpretation Comments HEMOGLOBIN A1c (test code = 61054) 5.9 % HEMOGLOBIN [id number] 00:00:00 Test Item Value Reference Range Interpretation Comments HEMOGLOBIN A1c (test code = 48738) 5.9 % LIPID [id number] 00:00:00 Test Item Value Reference Range Interpretation Comments CHOLESTEROL (test code = 2210) 318 MG/DL TRIGLYCERIDES (test code = 2232) 263 MG/DL HDL CHOLESTEROL (test code = 2220) 51 MG/DL CALC LDL CHOL (test code = 2237) 214 MG/DL RISK RATIO LDL/HDL (test code = 4.20 RATIO 2238) LIPID [id number] 00:00:00 Test Item Value Reference Range Interpretation Comments CHOLESTEROL (test code = 2210) 318 MG/DL TRIGLYCERIDES (test code = 2232) 263 MG/DL HDL CHOLESTEROL (test code = 2220) 51 MG/DL CALC LDL CHOL (test code = 2237) 214 MG/DL RISK RATIO LDL/HDL (test code = 4.20 RATIO 2238) COMPREHENSIVE METABOLIC [id number] 00:00:00 Test Item Value Reference Range Interpretation Comments GLUCOSE (test code = 2217) 113 MG/DL BUN (test code = 2208) 18 MG/DL CREATININE (test code = 2214) 0.70 MG/DL eGFR AMER. (test code 111 ML/MIN/1.73 = 97518) eGFR NON- AMER. (test 96 ML/MIN/1.73 code = 12828) CALC BUN/CREAT (test code = 26 RATIO [...] code = 2219) 31 U/L COMPREHENSIVE METABOLIC [id number] 00:00:00 Test Item Value Reference Range Interpretation Comments GLUCOSE (test code = 2217) 113 MG/DL BUN (test code = 2208) 18 MG/DL CREATININE (test code = 2214) 0.70 MG/DL eGFR AMER. (test code 111 ML/MIN/1.73 = 33165) eGFR NON- AMER. (test 96 ML/MIN/1.73 code = 46186) CALC BUN/CREAT (test code = 26 RATIO [...] ALT (test code = 2219) 31 U/L [id number] 00:00:00 Test Item Value Reference Range Interpretation Comments TSH, THIRD GENERATION (test code 2.520 UIU/ML = 2821) [id number] 00:00:00 Test Item Value Reference Range Interpretation Comments TSH, THIRD GENERATION (test code 2.520 UIU/ML = 2821) [id number] 00:00:00 Test Item Value Reference Range Interpretation Comments TSH, THIRD GENERATION (test code 2.520 UIU/ML = 2821) CULTURE, [id number] 00:00:00 Test Item Value Reference Range Interpretation Comments CULTURE, URINE (test SPECIMEN NUMBER: code = 65010) [id number] CULTURE, [id number] 00:00:00 Test Item Value Reference Range Interpretation Comments CULTURE, URINE (test SPECIMEN NUMBER: code = 57984) [id number] CULTURE, [id number] 00:00:00 Test Item Value Reference Range Interpretation Comments CULTURE, URINE (test SPECIMEN NUMBER: code = 14405) [id number] CULTURE, [id number] 00:00:00 Test Item Value Reference Range Interpretation Comments CULTURE, URINE (test SPECIMEN NUMBER: code = 84128) [id number] CULTURE, [id number] 00:00:00 Test Item Value Reference Range Interpretation Comments CULTURE, URINE (test SPECIMEN NUMBER: code = 43476) [id number] CULTURE, [id number] 00:00:00 Test Item Value Reference Range Interpretation Comments CULTURE, URINE (test SPECIMEN NUMBER: code = 93989) [id number] CULTURE, [id number] 00:00:00 Test Item Value Reference Range Interpretation Comments CULTURE, URINE (test SPECIMEN NUMBER: code = 15854) [id number] CULTURE, [id number] 00:00:00 Test Item Value Reference Range Interpretation Comments CULTURE, URINE (test SPECIMEN NUMBER: code = 61518) [id number] CULTURE, [id number] 00:00:00 Test Item Value Reference Range Interpretation Comments CULTURE, URINE (test SPECIMEN NUMBER: code = 77499) [id number] CULTURE, [id number] 00:00:00 Test Item Value Reference Range Interpretation Comments CULTURE, URINE (test SPECIMEN NUMBER: code = 99453) [id number] CULTURE, [id number] 00:00:00 Test Item Value Reference Range Interpretation Comments CULTURE, URINE (test SPECIMEN NUMBER: code = 19969) [id number] CULTURE, [id number] 00:00:00 Test Item Value Reference Range Interpretation Comments CULTURE, URINE (test SPECIMEN NUMBER: code = 98596) [id number] CULTURE, [id number] 00:00:00 Test Item Value Reference Range Interpretation Comments CULTURE, URINE (test SPECIMEN NUMBER: code = 13185) [id number] CULTURE, [id number] 00:00:00 Test Item Value Reference Range Interpretation Comments CULTURE, URINE (test SPECIMEN NUMBER: code = 94506) [id number] BASIC METABOLIC [id number] 00:00:00 Test Item Value Reference Range Interpretation Comments GLUCOSE (test code = 2217) 135 MG/DL BUN (test code = 2208) 25 MG/DL CREATININE (test code = 2214) 0.76 MG/DL eGFR AMER. (test code 101 ML/MIN/1.73 = 68160) eGFR NON- AMER. (test 87 ML/MIN/1.73 code = 76614) SODIUM (test code = 2231) 139 MEQ/L POTASSIUM (test code = 2228) 4.7 MEQ/L CHLORIDE (test code = 2215) 99 MEQ/L CARBON DIOXIDE (test code = 26 MEQ/L 2206) CALCIUM (test code = 2209) 9.4 MG/DL BASIC METABOLIC [id number] 00:00:00 Test Item Value Reference Range Interpretation Comments GLUCOSE (test code = 2217) 135 MG/DL BUN (test code = 2208) 25 MG/DL CREATININE (test code = 2214) 0.76 MG/DL eGFR AMER. (test code 101 ML/MIN/1.73 = 57634) eGFR NON- AMER. (test 87 ML/MIN/1.73 code = 87456) SODIUM (test code = 2231) 139 MEQ/L POTASSIUM (test code = 2228) 4.7 MEQ/L CHLORIDE (test code = 2215) 99 MEQ/L CARBON DIOXIDE (test code = 26 MEQ/L 2206) CALCIUM (test code = 2209) 9.4 MG/DL LIPID [id number] 00:00:00 Test Item Value Reference Range Interpretation Comments CHOLESTEROL (test code = 2210) 262 MG/DL TRIGLYCERIDES (test code = 2232) 300 MG/DL HDL CHOLESTEROL (test code = 2220) 36 MG/DL CALC LDL CHOL (test code = 2237) 166 MG/DL RISK RATIO LDL/HDL (test code = 4.61 RATIO 2238) LIPID [id number] 00:00:00 Test Item Value Reference Range Interpretation Comments CHOLESTEROL (test code = 2210) 262 MG/DL TRIGLYCERIDES (test code = 2232) 300 MG/DL HDL CHOLESTEROL (test code = 2220) 36 MG/DL CALC LDL CHOL (test code = 2237) 166 MG/DL RISK RATIO LDL/HDL (test code = 4.61 RATIO 2238) HEMOGLOBIN [id number] 00:00:00 Test Item Value Reference Range Interpretation Comments HEMOGLOBIN A1c (test code = 14619) 6.2 % HEMOGLOBIN [id number] 00:00:00 Test Item Value Reference Range Interpretation Comments HEMOGLOBIN A1c (test code = 32438) 6.2 % HEMOGLOBIN [id number] 00:00:00 Test Item Value Reference Range Interpretation Comments HEMOGLOBIN A1c (test code = 55161) 6.2 % [id number] 00:00:00 Test Item Value Reference Range Interpretation Comments TSH, THIRD GENERATION (test code 0.988 UIU/ML = 2821) [id number] 00:00:00 Test Item Value Reference Range Interpretation Comments TSH, THIRD GENERATION (test code 0.988 UIU/ML = 2821) [id number] 00:00:00 Test Item Value Reference Range Interpretation Comments TSH, THIRD GENERATION (test code 0.988 UIU/ML = 2821) BASIC METABOLIC [id number] 00:00:00 Test Item Value Reference Range Interpretation Comments GLUCOSE (test code = 2217) 135 MG/DL BUN (test code = 2208) 25 MG/DL CREATININE (test code = 2214) 0.76 MG/DL eGFR AMER. (test code 101 ML/MIN/1.73 = 11958) eGFR NON- AMER. (test 87 ML/MIN/1.73 code = 74715) SODIUM (test code = 2231) 139 MEQ/L POTASSIUM (test code = 2228) 4.7 MEQ/L CHLORIDE (test code = 2215) 99 MEQ/L CARBON DIOXIDE (test code = 26 MEQ/L 220) CALCIUM (test code = 2209) 9.4 MG/DL BASIC METABOLIC [id number] 00:00:00 Test Item Value Reference Range Interpretation Comments GLUCOSE (test code = 2217) 135 MG/DL BUN (test code = 2208) 25 MG/DL CREATININE (test code = 2214) 0.76 MG/DL eGFR AMER. (test code 101 ML/MIN/1.73 = 28689) eGFR NON- AMER. (test 87 ML/MIN/1.73 code = 05364) SODIUM (test code = 2231) 139 MEQ/L POTASSIUM (test code = 2228) 4.7 MEQ/L CHLORIDE (test code = 2215) 99 MEQ/L CARBON DIOXIDE (test code = 26 MEQ/L 2206) CALCIUM (test code = 2209) 9.4 MG/DL LIPID [id number] 00:00:00 Test Item Value Reference Range Interpretation Comments CHOLESTEROL (test code = 2210) 262 MG/DL TRIGLYCERIDES (test code = 2232) 300 MG/DL HDL CHOLESTEROL (test code = 2220) 36 MG/DL CALC LDL CHOL (test code = 2237) 166 MG/DL RISK RATIO LDL/HDL (test code = 4.61 RATIO 2238) LIPID [id number] 00:00:00 Test Item Value Reference Range Interpretation Comments CHOLESTEROL (test code = 2210) 262 MG/DL TRIGLYCERIDES (test code = 2232) 300 MG/DL HDL CHOLESTEROL (test code = 2220) 36 MG/DL CALC LDL CHOL (test code = 2237) 166 MG/DL RISK RATIO LDL/HDL (test code = 4.61 RATIO 2238) HEMOGLOBIN [id number] 00:00:00 Test Item Value Reference Range Interpretation Comments HEMOGLOBIN A1c (test code = 14284) 6.2 % HEMOGLOBIN [id number] 00:00:00 Test Item Value Reference Range Interpretation Comments HEMOGLOBIN A1c (test code = 04550) 6.2 % HEMOGLOBIN [id number] 00:00:00 Test Item Value Reference Range Interpretation Comments HEMOGLOBIN A1c (test code = 68412) 6.2 % [id number] 00:00:00 Test Item Value Reference Range Interpretation Comments TSH, THIRD GENERATION (test code 0.988 UIU/ML = 2821) [id number] 00:00:00 Test Item Value Reference Range Interpretation Comments TSH, THIRD GENERATION (test code 0.988 UIU/ML = 2821) [id number] 00:00:00 Test Item Value Reference Range Interpretation Comments TSH, THIRD GENERATION (test code 0.988 UIU/ML = 2821) BASIC METABOLIC [id number] 00:00:00 Test Item Value Reference Range Interpretation Comments GLUCOSE (test code = 2217) 135 MG/DL BUN (test code = 2208) 25 MG/DL CREATININE (test code = 2214) 0.76 MG/DL eGFR AMER. (test code 101 ML/MIN/1.73 = 21150) eGFR NON- AMER. (test 87 ML/MIN/1.73 code = 35555) SODIUM (test code = 2231) 139 MEQ/L POTASSIUM (test code = 2228) 4.7 MEQ/L CHLORIDE (test code = 2215) 99 MEQ/L CARBON DIOXIDE (test code = 26 MEQ/L 2206) CALCIUM (test code = 2209) 9.4 MG/DL LIPID [id number] 00:00:00 Test Item Value Reference Range Interpretation Comments CHOLESTEROL (test code = 2210) 262 MG/DL TRIGLYCERIDES (test code = 2232) 300 MG/DL HDL CHOLESTEROL (test code = 2220) 36 MG/DL CALC LDL CHOL (test code = 2237) 166 MG/DL RISK RATIO LDL/HDL (test code = 4.61 RATIO 2238) HEMOGLOBIN [id number] 00:00:00 Test Item Value Reference Range Interpretation Comments HEMOGLOBIN A1c (test code = 20607) 6.2 % HEMOGLOBIN [id number] 00:00:00 Test Item Value Reference Range Interpretation Comments HEMOGLOBIN A1c (test code = 17967) 6.2 % [id number] 00:00:00 Test Item Value Reference Range Interpretation Comments TSH, THIRD GENERATION (test code 0.988 UIU/ML = 2821) [id number] 00:00:00 Test Item Value Reference Range Interpretation Comments TSH, THIRD GENERATION (test code 0.988 UIU/ML = 2821) BASIC METABOLIC [id number] 00:00:00 Test Item Value Reference Range Interpretation Comments GLUCOSE (test code = 2217) 135 MG/DL BUN (test code = 2208) 25 MG/DL CREATININE (test code = 2214) 0.76 MG/DL eGFR AMER. (test code 101 ML/MIN/1.73 = 29313) eGFR NON- AMER. (test 87 ML/MIN/1.73 code = 61600) SODIUM (test code = 2231) 139 MEQ/L POTASSIUM (test code = 2228) 4.7 MEQ/L CHLORIDE (test code = 2215) 99 MEQ/L CARBON DIOXIDE (test code = 26 MEQ/L 2206) CALCIUM (test code = 2209) 9.4 MG/DL BASIC METABOLIC [id number] 00:00:00 Test Item Value Reference Range Interpretation Comments GLUCOSE (test code = 2217) 135 MG/DL BUN (test code = 2208) 25 MG/DL CREATININE (test code = 2214) 0.76 MG/DL eGFR AMER. (test code 101 ML/MIN/1.73 = 21914) eGFR NON- AMER. (test 87 ML/MIN/1.73 code = 54604) SODIUM (test code = 2231) 139 MEQ/L POTASSIUM (test code = 2228) 4.7 MEQ/L CHLORIDE (test code = 2215) 99 MEQ/L CARBON DIOXIDE (test code = 26 MEQ/L 2206) CALCIUM (test code = 2209) 9.4 MG/DL LIPID [id number] 00:00:00 Test Item Value Reference Range Interpretation Comments CHOLESTEROL (test code = 2210) 262 MG/DL TRIGLYCERIDES (test code = 2232) 300 MG/DL HDL CHOLESTEROL (test code = 2220) 36 MG/DL CALC LDL CHOL (test code = 2237) 166 MG/DL RISK RATIO LDL/HDL (test code = 4.61 RATIO 2238) LIPID [id number] 00:00:00 Test Item Value Reference Range Interpretation Comments CHOLESTEROL (test code = 2210) 262 MG/DL TRIGLYCERIDES (test code = 2232) 300 MG/DL HDL CHOLESTEROL (test code = 2220) 36 MG/DL CALC LDL CHOL (test code = 2237) 166 MG/DL RISK RATIO LDL/HDL (test code = 4.61 RATIO 2238) HEMOGLOBIN [id number] 00:00:00 Test Item Value Reference Range Interpretation Comments HEMOGLOBIN A1c (test code = 51014) 6.2 % HEMOGLOBIN [id number] 00:00:00 Test Item Value Reference Range Interpretation Comments HEMOGLOBIN A1c (test code = 09382) 6.2 % HEMOGLOBIN [id number] 00:00:00 Test Item Value Reference Range Interpretation Comments HEMOGLOBIN A1c (test code = 98169) 6.2 % [id number] 00:00:00 Test Item Value Reference Range Interpretation Comments TSH, THIRD GENERATION (test code 0.988 UIU/ML = 2821) [id number] 00:00:00 Test Item Value Reference Range Interpretation Comments TSH, THIRD GENERATION (test code 0.988 UIU/ML = 2821) [id number] 00:00:00 Test Item Value Reference Range Interpretation Comments TSH, THIRD GENERATION (test code 0.988 UIU/ML = 2821) COMPREHENSIVE METABOLIC [id number] 00:00:00 Test Item Value Reference Range Interpretation Comments GLUCOSE (test code = 2217) 109 MG/DL BUN (test code = 2208) 25 MG/DL CREATININE (test code = 2214) 0.78 MG/DL eGFR AMER. (test code 98 ML/MIN/1.73 = 30880) eGFR NON- AMER. (test 84 ML/MIN/1.73 code = 46801) CALC BUN/CREAT (test code = 32 RATIO [...] code = 2219) 25 U/L COMPREHENSIVE METABOLIC [id number] 00:00:00 Test Item Value Reference Range Interpretation Comments GLUCOSE (test code = 2217) 109 MG/DL BUN (test code = 2208) 25 MG/DL CREATININE (test code = 2214) 0.78 MG/DL eGFR AMER. (test code 98 ML/MIN/1.73 = 40640) eGFR NON- AMER. (test 84 ML/MIN/1.73 code = 72524) CALC BUN/CREAT (test code = 32 RATIO [...] (test code = 2219) 25 U/L LIPID [id number] 00:00:00 Test Item Value Reference Range Interpretation Comments CHOLESTEROL (test code = 2210) 295 MG/DL TRIGLYCERIDES (test code = 2232) 218 MG/DL HDL CHOLESTEROL (test code = 2220) 46 MG/DL CALC LDL CHOL (test code = 2237) 205 MG/DL RISK RATIO LDL/HDL (test code = 4.47 RATIO 2238) LIPID [id number] 00:00:00 Test Item Value Reference Range Interpretation Comments CHOLESTEROL (test code = 2210) 295 MG/DL TRIGLYCERIDES (test code = 2232) 218 MG/DL HDL CHOLESTEROL (test code = 2220) 46 MG/DL CALC LDL CHOL (test code = 2237) 205 MG/DL RISK RATIO LDL/HDL (test code = 4.47 RATIO 2238) HEMOGLOBIN [id number] 00:00:00 Test Item Value Reference Range Interpretation Comments HEMOGLOBIN A1c (test code = 24399) 7.0 % HEMOGLOBIN [id number] 00:00:00 Test Item Value Reference Range Interpretation Comments HEMOGLOBIN A1c (test code = 23692) 7.0 % HEMOGLOBIN [id number] 00:00:00 Test Item Value Reference Range Interpretation Comments HEMOGLOBIN A1c (test code = 06791) 7.0 % [id number] 00:00:00 Test Item Value Reference Range Interpretation Comments TSH, THIRD GENERATION (test code 0.565 UIU/ML = 2821) [id number] 00:00:00 Test Item Value Reference Range Interpretation Comments TSH, THIRD GENERATION (test code 0.565 UIU/ML = 2821) [id number] 00:00:00 Test Item Value Reference Range Interpretation Comments TSH, THIRD GENERATION (test code 0.565 UIU/ML = 2821) COMPREHENSIVE METABOLIC [id number] 00:00:00 Test Item Value Reference Range Interpretation Comments GLUCOSE (test code = 2217) 109 MG/DL BUN (test code = 2208) 25 MG/DL CREATININE (test code = 2214) 0.78 MG/DL eGFR AMER. (test code 98 ML/MIN/1.73 = 32310) eGFR NON- AMER. (test 84 ML/MIN/1.73 code = 72517) CALC BUN/CREAT (test code = 32 RATIO [...] code = 2219) 25 U/L COMPREHENSIVE METABOLIC [id number] 00:00:00 Test Item Value Reference Range Interpretation Comments GLUCOSE (test code = 2217) 109 MG/DL BUN (test code = 2208) 25 MG/DL CREATININE (test code = 2214) 0.78 MG/DL eGFR AMER. (test code 98 ML/MIN/1.73 = 61631) eGFR NON- AMER. (test 84 ML/MIN/1.73 code = 81414) CALC BUN/CREAT (test code = 32 RATIO [...] (test code = 2219) 25 U/L LIPID [id number] 00:00:00 Test Item Value Reference Range Interpretation Comments CHOLESTEROL (test code = 2210) 295 MG/DL TRIGLYCERIDES (test code = 2232) 218 MG/DL HDL CHOLESTEROL (test code = 2220) 46 MG/DL CALC LDL CHOL (test code = 2237) 205 MG/DL RISK RATIO LDL/HDL (test code = 4.47 RATIO 2238) LIPID [id number] 00:00:00 Test Item Value Reference Range Interpretation Comments CHOLESTEROL (test code = 2210) 295 MG/DL TRIGLYCERIDES (test code = 2232) 218 MG/DL HDL CHOLESTEROL (test code = 2220) 46 MG/DL CALC LDL CHOL (test code = 2237) 205 MG/DL RISK RATIO LDL/HDL (test code = 4.47 RATIO 2238) HEMOGLOBIN [id number] 00:00:00 Test Item Value Reference Range Interpretation Comments HEMOGLOBIN A1c (test code = 13910) 7.0 % HEMOGLOBIN [id number] 00:00:00 Test Item Value Reference Range Interpretation Comments HEMOGLOBIN A1c (test code = 63158) 7.0 % HEMOGLOBIN [id number] 00:00:00 Test Item Value Reference Range Interpretation Comments HEMOGLOBIN A1c (test code = 81171) 7.0 % [id number] 00:00:00 Test Item Value Reference Range Interpretation Comments TSH, THIRD GENERATION (test code 0.565 UIU/ML = 2821) [id number] 00:00:00 Test Item Value Reference Range Interpretation Comments TSH, THIRD GENERATION (test code 0.565 UIU/ML = 2821) [id number] 00:00:00 Test Item Value Reference Range Interpretation Comments TSH, THIRD GENERATION (test code 0.565 UIU/ML = 2821) COMPREHENSIVE METABOLIC [id number] 00:00:00 Test Item Value Reference Range Interpretation Comments GLUCOSE (test code = 2217) 109 MG/DL BUN (test code = 2208) 25 MG/DL CREATININE (test code = 2214) 0.78 MG/DL eGFR AMER. (test code 98 ML/MIN/1.73 = 35192) eGFR NON- AMER. (test 84 ML/MIN/1.73 code = 84061) CALC BUN/CREAT (test code = 32 RATIO [...] (test code = 2219) 25 U/L LIPID [id number] 00:00:00 Test Item Value Reference Range Interpretation Comments CHOLESTEROL (test code = 2210) 295 MG/DL TRIGLYCERIDES (test code = 2232) 218 MG/DL HDL CHOLESTEROL (test code = 2220) 46 MG/DL CALC LDL CHOL (test code = 2237) 205 MG/DL RISK RATIO LDL/HDL (test code = 4.47 RATIO 2238) HEMOGLOBIN [id number] 00:00:00 Test Item Value Reference Range Interpretation Comments HEMOGLOBIN A1c (test code = 34210) 7.0 % HEMOGLOBIN [id number] 00:00:00 Test Item Value Reference Range Interpretation Comments HEMOGLOBIN A1c (test code = 04211) 7.0 % [id number] 00:00:00 Test Item Value Reference Range Interpretation Comments TSH, THIRD GENERATION (test code 0.565 UIU/ML = 2821) [id number] 00:00:00 Test Item Value Reference Range Interpretation Comments TSH, THIRD GENERATION (test code 0.565 UIU/ML = 2821) COMPREHENSIVE METABOLIC [id number] 00:00:00 Test Item Value Reference Range Interpretation Comments GLUCOSE (test code = 2217) 109 MG/DL BUN (test code = 2208) 25 MG/DL CREATININE (test code = 2214) 0.78 MG/DL eGFR AMER. (test code 98 ML/MIN/1.73 = 48216) eGFR NON- AMER. (test 84 ML/MIN/1.73 code = 07103) CALC BUN/CREAT (test code = 32 RATIO [...] code = 2219) 25 U/L COMPREHENSIVE METABOLIC [id number] 00:00:00 Test Item Value Reference Range Interpretation Comments GLUCOSE (test code = 2217) 109 MG/DL BUN (test code = 2208) 25 MG/DL CREATININE (test code = 2214) 0.78 MG/DL eGFR AMER. (test code 98 ML/MIN/1.73 = 38932) eGFR NON- AMER. (test 84 ML/MIN/1.73 code = 20171) CALC BUN/CREAT (test code = 32 RATIO [...] (test code = 2219) 25 U/L LIPID [id number] 00:00:00 Test Item Value Reference Range Interpretation Comments CHOLESTEROL (test code = 2210) 295 MG/DL TRIGLYCERIDES (test code = 2232) 218 MG/DL HDL CHOLESTEROL (test code = 2220) 46 MG/DL CALC LDL CHOL (test code = 2237) 205 MG/DL RISK RATIO LDL/HDL (test code = 4.47 RATIO 2238) LIPID [id number] 00:00:00 Test Item Value Reference Range Interpretation Comments CHOLESTEROL (test code = 2210) 295 MG/DL TRIGLYCERIDES (test code = 2232) 218 MG/DL HDL CHOLESTEROL (test code = 2220) 46 MG/DL CALC LDL CHOL (test code = 2237) 205 MG/DL RISK RATIO LDL/HDL (test code = 4.47 RATIO 2238) HEMOGLOBIN [id number] 00:00:00 Test Item Value Reference Range Interpretation Comments HEMOGLOBIN A1c (test code = 53734) 7.0 % HEMOGLOBIN [id number] 00:00:00 Test Item Value Reference Range Interpretation Comments HEMOGLOBIN A1c (test code = 08158) 7.0 % HEMOGLOBIN [id number] 00:00:00 Test Item Value Reference Range Interpretation Comments HEMOGLOBIN A1c (test code = 52462) 7.0 % [id number] 00:00:00 Test Item Value Reference Range Interpretation Comments TSH, THIRD GENERATION (test code 0.565 UIU/ML = 2821) [id number] 00:00:00 Test Item Value Reference Range Interpretation Comments TSH, THIRD GENERATION (test code 0.565 UIU/ML = 2821) [id number] 00:00:00 Test Item Value Reference Range Interpretation Comments TSH, THIRD GENERATION (test code 0.565 UIU/ML = 2821) [id number] 00:00:00 Test Item Value Reference Range Interpretation Comments TSH, THIRD GENERATION (test code 0.379 UIU/ML = 2821) [id number] 00:00:00 Test Item Value Reference Range Interpretation Comments TSH, THIRD GENERATION (test code 0.379 UIU/ML = 2821) [id number] 00:00:00 Test Item Value Reference Range Interpretation Comments TSH, THIRD GENERATION (test code 0.379 UIU/ML = 2821) [id number] 00:00:00 Test Item Value Reference Range Interpretation Comments TSH, THIRD GENERATION (test code 0.379 UIU/ML = 2821) [id number] 00:00:00 Test Item Value Reference Range Interpretation Comments TSH, THIRD GENERATION (test code 0.379 UIU/ML = 2821) [id number] 00:00:00 Test Item Value Reference Range Interpretation Comments TSH, THIRD GENERATION (test code 0.379 UIU/ML = 2821) [id number] 00:00:00 Test Item Value Reference Range Interpretation Comments TSH, THIRD GENERATION (test code 0.379 UIU/ML = 2821) [id number] 00:00:00 Test Item Value Reference Range Interpretation Comments TSH, THIRD GENERATION (test code 0.379 UIU/ML = 2821) [id number] 00:00:00 Test Item Value Reference Range Interpretation Comments TSH, THIRD GENERATION (test code 0.379 UIU/ML = 2821) [id number] 00:00:00 Test Item Value Reference Range Interpretation Comments TSH, THIRD GENERATION (test code 0.379 UIU/ML = 2821) [id number] 00:00:00 Test Item Value Reference Range Interpretation Comments TSH, THIRD GENERATION (test code 0.379 UIU/ML = 2821) CULTURE, [id number] 00:00:00 Test Item Value Reference Range Interpretation Comments CULTURE, URINE (test SPECIMEN NUMBER: code = 39286) [id number] CULTURE, [id number] 00:00:00 Test Item Value Reference Range Interpretation Comments CULTURE, URINE (test SPECIMEN NUMBER: code = 01307) [id number] CULTURE, [id number] 00:00:00 Test Item Value Reference Range Interpretation Comments CULTURE, URINE (test SPECIMEN NUMBER: code = 72750) [id number] CULTURE, [id number] 00:00:00 Test Item Value Reference Range Interpretation Comments CULTURE, URINE (test SPECIMEN NUMBER: code = 16663) [id number] CULTURE, [id number] 00:00:00 Test Item Value Reference Range Interpretation Comments CULTURE, URINE (test SPECIMEN NUMBER: code = 83913) [id number] CULTURE, [id number] 00:00:00 Test Item Value Reference Range Interpretation Comments CULTURE, URINE (test SPECIMEN NUMBER: code = 26331) [id number] CULTURE, [id number] 00:00:00 Test Item Value Reference Range Interpretation Comments CULTURE, URINE (test SPECIMEN NUMBER: code = 96167) [id number] COMPREHENSIVE METABOLIC [id number] 00:00:00 Test Item Value Reference Range Interpretation Comments GLUCOSE (test code = 2217) 128 MG/DL BUN (test code = 2208) 26 MG/DL CREATININE (test code = 2214) 0.92 MG/DL eGFR AMER. (test code 81 ML/MIN/1.73 = 64156) eGFR NON- AMER. (test 70 ML/MIN/1.73 code = 84458) CALC BUN/CREAT (test code = 28 RATIO [...] code = 2219) 29 U/L COMPREHENSIVE METABOLIC [id number] 00:00:00 Test Item Value Reference Range Interpretation Comments GLUCOSE (test code = 2217) 128 MG/DL BUN (test code = 2208) 26 MG/DL CREATININE (test code = 2214) 0.92 MG/DL eGFR AMER. (test code 81 ML/MIN/1.73 = 13301) eGFR NON- AMER. (test 70 ML/MIN/1.73 code = 71541) CALC BUN/CREAT (test code = 28 RATIO [...] code = 2219) 29 U/L ACUTE HEPATITIS [id number] 00:00:00 Test Item Value Reference Range Interpretation Comments HEPATITIS A IgM (test code = NON-REACTIVE 61600) HEPATITIS B CORE IgM (test code NON-REACTIVE = 5697) HEPATITIS B SURF AG (test code = NON-REACTIVE 0883) HEPATITIS C ANTIBODY (test code NON-REACTIVE = 5413) INTERPRETATION HEPATITIS A: (NOTE) (test code = 2552) INTERPRETATION HEPATITIS B: (NOTE) (test code = 21507) INTERPRETATION HEPATITIS C: (NOTE) (test code = 86279) ACUTE HEPATITIS [id number] 00:00:00 Test Item Value Reference Range Interpretation Comments HEPATITIS A IgM (test code = NON-REACTIVE 11577) HEPATITIS B CORE IgM (test code NON-REACTIVE = 4644) HEPATITIS B SURF AG (test code = NON-REACTIVE 7269) HEPATITIS C ANTIBODY (test code NON-REACTIVE = 4101) INTERPRETATION HEPATITIS A: (NOTE) (test code = 2552) INTERPRETATION HEPATITIS B: (NOTE) (test code = 40610) INTERPRETATION HEPATITIS C: (NOTE) (test code = 76969) [id number] 00:00:00 Test Item Value Reference Range Interpretation Comments AMYLASE (test code = 2205) 32 U/L [id number] 00:00:00 Test Item Value Reference Range Interpretation Comments AMYLASE (test code = 2205) 32 U/L [id number] 00:00:00 Test Item Value Reference Range Interpretation Comments LIPASE (test code = 2058) 22 U/L [id number] 00:00:00 Test Item Value Reference Range Interpretation Comments LIPASE (test code = 2058) 22 U/L [id number] 00:00:00 Test Item Value Reference Range Interpretation Comments LIPASE (test code = 2058) 22 U/L COMPREHENSIVE METABOLIC [id number] 00:00:00 Test Item Value Reference Range Interpretation Comments GLUCOSE (test code = 2217) 128 MG/DL BUN (test code = 2208) 26 MG/DL CREATININE (test code = 2214) 0.92 MG/DL eGFR AMER. (test code 81 ML/MIN/1.73 = 70338) eGFR NON- AMER. (test 70 ML/MIN/1.73 code = 67809) CALC BUN/CREAT (test code = 28 RATIO [...] code = 2219) 29 U/L COMPREHENSIVE METABOLIC [id number] 00:00:00 Test Item Value Reference Range Interpretation Comments GLUCOSE (test code = 2217) 128 MG/DL BUN (test code = 2208) 26 MG/DL CREATININE (test code = 2214) 0.92 MG/DL eGFR AMER. (test code 81 ML/MIN/1.73 = 50165) eGFR NON- AMER. (test 70 ML/MIN/1.73 code = 56789) CALC BUN/CREAT (test code = 28 RATIO [...] code = 2219) 29 U/L ACUTE HEPATITIS [id number] 00:00:00 Test Item Value Reference Range Interpretation Comments HEPATITIS A IgM (test code = NON-REACTIVE 34945) HEPATITIS B CORE IgM (test code NON-REACTIVE = 8701) HEPATITIS B SURF AG (test code = NON-REACTIVE 0695) HEPATITIS C ANTIBODY (test code NON-REACTIVE = 1232) INTERPRETATION HEPATITIS A: (NOTE) (test code = 2552) INTERPRETATION HEPATITIS B: (NOTE) (test code = 68183) INTERPRETATION HEPATITIS C: (NOTE) (test code = 41190) ACUTE HEPATITIS [id number] 00:00:00 Test Item Value Reference Range Interpretation Comments HEPATITIS A IgM (test code = NON-REACTIVE 33615) HEPATITIS B CORE IgM (test code NON-REACTIVE = 4644) HEPATITIS B SURF AG (test code = NON-REACTIVE 5659) HEPATITIS C ANTIBODY (test code NON-REACTIVE = 5665) INTERPRETATION HEPATITIS A: (NOTE) (test code = 2552) INTERPRETATION HEPATITIS B: (NOTE) (test code = 16299) INTERPRETATION HEPATITIS C: (NOTE) (test code = 76446) [id number] 00:00:00 Test Item Value Reference Range Interpretation Comments AMYLASE (test code = 2205) 32 U/L [id number] 00:00:00 Test Item Value Reference Range Interpretation Comments AMYLASE (test code = 2205) 32 U/L [id number] 00:00:00 Test Item Value Reference Range Interpretation Comments LIPASE (test code = 2058) 22 U/L [id number] 00:00:00 Test Item Value Reference Range Interpretation Comments LIPASE (test code = 2058) 22 U/L [id number] 00:00:00 Test Item Value Reference Range Interpretation Comments LIPASE (test code = 2058) 22 U/L COMPREHENSIVE METABOLIC [id number] 00:00:00 Test Item Value Reference Range Interpretation Comments GLUCOSE (test code = 2217) 128 MG/DL BUN (test code = 2208) 26 MG/DL CREATININE (test code = 2214) 0.92 MG/DL eGFR AMER. (test code 81 ML/MIN/1.73 = 56419) eGFR NON- AMER. (test 70 ML/MIN/1.73 code = 86015) CALC BUN/CREAT (test code = 28 RATIO [...] code = 2219) 29 U/L ACUTE HEPATITIS [id number] 00:00:00 Test Item Value Reference Range Interpretation Comments HEPATITIS A IgM (test code = NON-REACTIVE 94299) HEPATITIS B CORE IgM (test code NON-REACTIVE = 5694) HEPATITIS B SURF AG (test code = NON-REACTIVE 2727) HEPATITIS C ANTIBODY (test code NON-REACTIVE = 8474) INTERPRETATION HEPATITIS A: (NOTE) (test code = 2552) INTERPRETATION HEPATITIS B: (NOTE) (test code = 80470) INTERPRETATION HEPATITIS C: (NOTE) (test code = 32051) [id number] 00:00:00 Test Item Value Reference Range Interpretation Comments AMYLASE (test code = 2205) 32 U/L [id number] 00:00:00 Test Item Value Reference Range Interpretation Comments LIPASE (test code = 2058) 22 U/L [id number] 00:00:00 Test Item Value Reference Range Interpretation Comments LIPASE (test code = 2058) 22 U/L COMPREHENSIVE METABOLIC [id number] 00:00:00 Test Item Value Reference Range Interpretation Comments GLUCOSE (test code = 2217) 128 MG/DL BUN (test code = 2208) 26 MG/DL CREATININE (test code = 2214) 0.92 MG/DL eGFR AMER. (test code 81 ML/MIN/1.73 = 21581) eGFR NON- AMER. (test 70 ML/MIN/1.73 code = 85445) CALC BUN/CREAT (test code = 28 RATIO [...] code = 2219) 29 U/L COMPREHENSIVE METABOLIC [id number] 00:00:00 Test Item Value Reference Range Interpretation Comments GLUCOSE (test code = 2217) 128 MG/DL BUN (test code = 2208) 26 MG/DL CREATININE (test code = 2214) 0.92 MG/DL eGFR AMER. (test code 81 ML/MIN/1.73 = 58689) eGFR NON- AMER. (test 70 ML/MIN/1.73 code = 65450) CALC BUN/CREAT (test code = 28 RATIO [...] code = 2219) 29 U/L ACUTE HEPATITIS [id number] 00:00:00 Test Item Value Reference Range Interpretation Comments HEPATITIS A IgM (test code = NON-REACTIVE 20447) HEPATITIS B CORE IgM (test code NON-REACTIVE = 4644) HEPATITIS B SURF AG (test code = NON-REACTIVE 0899) HEPATITIS C ANTIBODY (test code NON-REACTIVE = 4699) INTERPRETATION HEPATITIS A: (NOTE) (test code = 2552) INTERPRETATION HEPATITIS B: (NOTE) (test code = 83390) INTERPRETATION HEPATITIS C: (NOTE) (test code = 25408) ACUTE HEPATITIS [id number] 00:00:00 Test Item Value Reference Range Interpretation Comments HEPATITIS A IgM (test code = NON-REACTIVE 52958) HEPATITIS B CORE IgM (test code NON-REACTIVE = 4644) HEPATITIS B SURF AG (test code = NON-REACTIVE 9835) HEPATITIS C ANTIBODY (test code NON-REACTIVE = 4616) INTERPRETATION HEPATITIS A: (NOTE) (test code = 2552) INTERPRETATION HEPATITIS B: (NOTE) (test code = 82876) INTERPRETATION HEPATITIS C: (NOTE) (test code = 90156) [id number] 00:00:00 Test Item Value Reference Range Interpretation Comments AMYLASE (test code = 2205) 32 U/L [id number] 00:00:00 Test Item Value Reference Range Interpretation Comments AMYLASE (test code = 2205) 32 U/L [id number] 00:00:00 Test Item Value Reference Range Interpretation Comments LIPASE (test code = 2058) 22 U/L [id number] 00:00:00 Test Item Value Reference Range Interpretation Comments LIPASE (test code = 2058) 22 U/L [id number] 00:00:00 Test Item Value Reference Range Interpretation Comments LIPASE (test code = 2058) 22 U/L [id number] 00:00:00 Test Item Value Reference Range Interpretation Comments TSH, THIRD GENERATION (test code 4.890 UIU/ML = 2821) [id number] 00:00:00 Test Item Value Reference Range Interpretation Comments TSH, THIRD GENERATION (test code 4.890 UIU/ML = 2821) [id number] 00:00:00 Test Item Value Reference Range Interpretation Comments TSH, THIRD GENERATION (test code 4.890 UIU/ML = 2821) COMPREHENSIVE METABOLIC [id number] 00:00:00 Test Item Value Reference Range Interpretation Comments GLUCOSE (test code = 2217) 121 MG/DL BUN (test code = 2208) 40 MG/DL CREATININE (test code = 2214) 1.48 MG/DL eGFR AMER. (test code 45 ML/MIN/1.73 = 83403) eGFR NON- AMER. (test 39 ML/MIN/1.73 code = 45562) CALC BUN/CREAT (test code = 27 RATIO [...] code = 2219) 20 U/L COMPREHENSIVE METABOLIC [id number] 00:00:00 Test Item Value Reference Range Interpretation Comments GLUCOSE (test code = 2217) 121 MG/DL BUN (test code = 2208) 40 MG/DL CREATININE (test code = 2214) 1.48 MG/DL eGFR AMER. (test code 45 ML/MIN/1.73 = 64027) eGFR NON- AMER. (test 39 ML/MIN/1.73 code = 68880) CALC BUN/CREAT (test code = 27 RATIO [...] ALT (test code = 2219) 20 U/L [id number] 00:00:00 Test Item Value Reference Range Interpretation Comments TSH, THIRD GENERATION (test code 4.890 UIU/ML = 2821) [id number] 00:00:00 Test Item Value Reference Range Interpretation Comments TSH, THIRD GENERATION (test code 4.890 UIU/ML = 2821) [id number] 00:00:00 Test Item Value Reference Range Interpretation Comments TSH, THIRD GENERATION (test code 4.890 UIU/ML = 2821) COMPREHENSIVE METABOLIC [id number] 00:00:00 Test Item Value Reference Range Interpretation Comments GLUCOSE (test code = 2217) 121 MG/DL BUN (test code = 2208) 40 MG/DL CREATININE (test code = 2214) 1.48 MG/DL eGFR AMER. (test code 45 ML/MIN/1.73 = 19524) eGFR NON- AMER. (test 39 ML/MIN/1.73 code = 04355) CALC BUN/CREAT (test code = 27 RATIO [...] code = 2219) 20 U/L COMPREHENSIVE METABOLIC [id number] 00:00:00 Test Item Value Reference Range Interpretation Comments GLUCOSE (test code = 2217) 121 MG/DL BUN (test code = 2208) 40 MG/DL CREATININE (test code = 2214) 1.48 MG/DL eGFR AMER. (test code 45 ML/MIN/1.73 = 08568) eGFR NON- AMER. (test 39 ML/MIN/1.73 code = 18424) CALC BUN/CREAT (test code = 27 RATIO [...] ALT (test code = 2219) 20 U/L [id number] 00:00:00 Test Item Value Reference Range Interpretation Comments TSH, THIRD GENERATION (test code 4.890 UIU/ML = 2821) [id number] 00:00:00 Test Item Value Reference Range Interpretation Comments TSH, THIRD GENERATION (test code 4.890 UIU/ML = 2821) COMPREHENSIVE METABOLIC [id number] 00:00:00 Test Item Value Reference Range Interpretation Comments GLUCOSE (test code = 2217) 121 MG/DL BUN (test code = 2208) 40 MG/DL CREATININE (test code = 2214) 1.48 MG/DL eGFR AMER. (test code 45 ML/MIN/1.73 = 31438) eGFR NON- AMER. (test 39 ML/MIN/1.73 code = 21159) CALC BUN/CREAT (test code = 27 RATIO [...] ALT (test code = 2219) 20 U/L [id number] 00:00:00 Test Item Value Reference Range Interpretation Comments TSH, THIRD GENERATION (test code 4.890 UIU/ML = 2821) [id number] 00:00:00 Test Item Value Reference Range Interpretation Comments TSH, THIRD GENERATION (test code 4.890 UIU/ML = 2821) [id number] 00:00:00 Test Item Value Reference Range Interpretation Comments TSH, THIRD GENERATION (test code 4.890 UIU/ML = 2821) COMPREHENSIVE METABOLIC [id number] 00:00:00 Test Item Value Reference Range Interpretation Comments GLUCOSE (test code = 2217) 121 MG/DL BUN (test code = 2208) 40 MG/DL CREATININE (test code = 2214) 1.48 MG/DL eGFR AMER. (test code 45 ML/MIN/1.73 = 14308) eGFR NON- AMER. (test 39 ML/MIN/1.73 code = 95026) CALC BUN/CREAT (test code = 27 RATIO [...] code = 2219) 20 U/L COMPREHENSIVE METABOLIC [id number] 00:00:00 Test Item Value Reference Range Interpretation Comments GLUCOSE (test code = 2217) 121 MG/DL BUN (test code = 2208) 40 MG/DL CREATININE (test code = 2214) 1.48 MG/DL eGFR AMER. (test code 45 ML/MIN/1.73 = 91145) eGFR NON- AMER. (test 39 ML/MIN/1.73 code = 38135) CALC BUN/CREAT (test code = 27 RATIO [...] (test code = 2219) 20 U/L LIPID [id number] 00:00:00 Test Item Value Reference Range Interpretation Comments CHOLESTEROL (test code = 2210) 261 MG/DL TRIGLYCERIDES (test code = 2232) 165 MG/DL HDL CHOLESTEROL (test code = 2220) 58 MG/DL CALC LDL CHOL (test code = 2237) 170 MG/DL RISK RATIO LDL/HDL (test code = 2.93 RATIO 2238) LIPID [id number] 00:00:00 Test Item Value Reference Range Interpretation Comments CHOLESTEROL (test code = 2210) 261 MG/DL TRIGLYCERIDES (test code = 2232) 165 MG/DL HDL CHOLESTEROL (test code = 2220) 58 MG/DL CALC LDL CHOL (test code = 2237) 170 MG/DL RISK RATIO LDL/HDL (test code = 2.93 RATIO 2238) CBC W/AUTO [id number] 00:00:00 Test Item Value Reference Range Interpretation [...] code = 1015) 378 K/UL CBC W/AUTO [id number] 00:00:00 Test Item Value Reference Range Interpretation [...] code = 1015) 378 K/UL CBC W/AUTO [id number] 00:00:00 Test Item Value Reference Range Interpretation [...] (test code = 1015) 378 K/UL HEMOGLOBIN [id number] 00:00:00 Test Item Value Reference Range Interpretation Comments HEMOGLOBIN A1c (test code = 26995) 6.4 % HEMOGLOBIN [id number] 00:00:00 Test Item Value Reference Range Interpretation Comments HEMOGLOBIN A1c (test code = 21998) 6.4 % HEMOGLOBIN [id number] 00:00:00 Test Item Value Reference Range Interpretation Comments HEMOGLOBIN A1c (test code = 36720) 6.4 % [id number] 00:00:00 Test Item Value Reference Range Interpretation Comments TSH (test code = 2821) 5.290 UIU/ML [id number] 00:00:00 Test Item Value Reference Range Interpretation Comments TSH (test code = 2821) 5.290 UIU/ML [id number] 00:00:00 Test Item Value Reference Range Interpretation Comments TSH (test code = 2821) 5.290 UIU/ML LIPID [id number] 00:00:00 Test Item Value Reference Range Interpretation Comments CHOLESTEROL (test code = 2210) 261 MG/DL TRIGLYCERIDES (test code = 2232) 165 MG/DL HDL CHOLESTEROL (test code = 2220) 58 MG/DL CALC LDL CHOL (test code = 2237) 170 MG/DL RISK RATIO LDL/HDL (test code = 2.93 RATIO 2238) LIPID [id number] 00:00:00 Test Item Value Reference Range Interpretation Comments CHOLESTEROL (test code = 2210) 261 MG/DL TRIGLYCERIDES (test code = 2232) 165 MG/DL HDL CHOLESTEROL (test code = 2220) 58 MG/DL CALC LDL CHOL (test code = 2237) 170 MG/DL RISK RATIO LDL/HDL (test code = 2.93 RATIO 2238) CBC W/AUTO [id number] 00:00:00 Test Item Value Reference Range Interpretation [...] code = 1015) 378 K/UL CBC W/AUTO [id number] 00:00:00 Test Item Value Reference Range Interpretation [...] code = 1015) 378 K/UL CBC W/AUTO [id number] 00:00:00 Test Item Value Reference Range Interpretation [...] (test code = 1015) 378 K/UL HEMOGLOBIN [id number] 00:00:00 Test Item Value Reference Range Interpretation Comments HEMOGLOBIN A1c (test code = 89384) 6.4 % HEMOGLOBIN [id number] 00:00:00 Test Item Value Reference Range Interpretation Comments HEMOGLOBIN A1c (test code = 94868) 6.4 % HEMOGLOBIN [id number] 00:00:00 Test Item Value Reference Range Interpretation Comments HEMOGLOBIN A1c (test code = 34781) 6.4 % [id number] 00:00:00 Test Item Value Reference Range Interpretation Comments TSH (test code = 2821) 5.290 UIU/ML [id number] 00:00:00 Test Item Value Reference Range Interpretation Comments TSH (test code = 2821) 5.290 UIU/ML [id number] 00:00:00 Test Item Value Reference Range Interpretation Comments TSH (test code = 2821) 5.290 UIU/ML LIPID [id number] 00:00:00 Test Item Value Reference Range Interpretation Comments CHOLESTEROL (test code = 2210) 261 MG/DL TRIGLYCERIDES (test code = 2232) 165 MG/DL HDL CHOLESTEROL (test code = 2220) 58 MG/DL CALC LDL CHOL (test code = 2237) 170 MG/DL RISK RATIO LDL/HDL (test code = 2.93 RATIO 2238) CBC W/AUTO [id number] 00:00:00 Test Item Value Reference Range Interpretation [...] code = 1015) 378 K/UL CBC W/AUTO [id number] 00:00:00 Test Item Value Reference Range Interpretation [...] (test code = 1015) 378 K/UL HEMOGLOBIN [id number] 00:00:00 Test Item Value Reference Range Interpretation Comments HEMOGLOBIN A1c (test code = 59112) 6.4 % HEMOGLOBIN [id number] 00:00:00 Test Item Value Reference Range Interpretation Comments HEMOGLOBIN A1c (test code = 52146) 6.4 % [id number] 00:00:00 Test Item Value Reference Range Interpretation Comments TSH (test code = 2821) 5.290 UIU/ML [id number] 00:00:00 Test Item Value Reference Range Interpretation Comments TSH (test code = 2821) 5.290 UIU/ML LIPID [id number] 00:00:00 Test Item Value Reference Range Interpretation Comments CHOLESTEROL (test code = 2210) 261 MG/DL TRIGLYCERIDES (test code = 2232) 165 MG/DL HDL CHOLESTEROL (test code = 2220) 58 MG/DL CALC LDL CHOL (test code = 2237) 170 MG/DL RISK RATIO LDL/HDL (test code = 2.93 RATIO 2238) LIPID [id number] 00:00:00 Test Item Value Reference Range Interpretation Comments CHOLESTEROL (test code = 2210) 261 MG/DL TRIGLYCERIDES (test code = 2232) 165 MG/DL HDL CHOLESTEROL (test code = 2220) 58 MG/DL CALC LDL CHOL (test code = 2237) 170 MG/DL RISK RATIO LDL/HDL (test code = 2.93 RATIO 2238) CBC W/AUTO [id number] 00:00:00 Test Item Value Reference Range Interpretation [...] code = 1015) 378 K/UL CBC W/AUTO [id number] 00:00:00 Test Item Value Reference Range Interpretation [...] code = 1015) 378 K/UL CBC W/AUTO [id number] 00:00:00 Test Item Value Reference Range Interpretation [...] (test code = 1015) 378 K/UL HEMOGLOBIN [id number] 00:00:00 Test Item Value Reference Range Interpretation Comments HEMOGLOBIN A1c (test code = 56476) 6.4 % HEMOGLOBIN [id number] 00:00:00 Test Item Value Reference Range Interpretation Comments HEMOGLOBIN A1c (test code = 09589) 6.4 % HEMOGLOBIN [id number] 00:00:00 Test Item Value Reference Range Interpretation Comments HEMOGLOBIN A1c (test code = 77385) 6.4 % [id number] 00:00:00 Test Item Value Reference Range Interpretation Comments TSH (test code = 2821) 5.290 UIU/ML [id number] 00:00:00 Test Item Value Reference Range Interpretation Comments TSH (test code = 2821) 5.290 UIU/ML [id number] 00:00:00 Test Item Value Reference Range Interpretation [...] code = 2821) 1.030 UIU/ML COMPREHENSIVE METABOLIC [id number] 00:00:00 Test Item Value Reference Range Interpretation Comments GLUCOSE (test code = 2217) 106 MG/DL BUN (test code = 2208) 23 MG/DL CREATININE (test code = 2214) 0.66 MG/DL eGFR AMER. (test code 114 ML/MIN/1.73 = 94224) eGFR NON- AMER. (test 99 ML/MIN/1.73 code = 02433) CALC BUN/CREAT (test code = 35 RATIO [...] code = 2219) 31 U/L COMPREHENSIVE METABOLIC [id number] 00:00:00 Test Item Value Reference Range Interpretation Comments GLUCOSE (test code = 2217) 106 MG/DL BUN (test code = 2208) 23 MG/DL CREATININE (test code = 2214) 0.66 MG/DL eGFR AMER. (test code 114 ML/MIN/1.73 = 75206) eGFR NON- AMER. (test 99 ML/MIN/1.73 code = 40770) CALC BUN/CREAT (test code = 35 RATIO [...] code = 2821) 0.335 UIU/ML COMPREHENSIVE METABOLIC [id number] 00:00:00 Test Item Value Reference Range Interpretation Comments GLUCOSE (test code = 2217) 106 MG/DL BUN (test code = 2208) 23 MG/DL CREATININE (test code = 2214) 0.66 MG/DL eGFR AMER. (test code 114 ML/MIN/1.73 = 83905) eGFR NON- AMER. (test 99 ML/MIN/1.73 code = 49453) CALC BUN/CREAT (test code = 35 RATIO [...] code = 2219) 31 U/L COMPREHENSIVE METABOLIC [id number] 00:00:00 Test Item Value Reference Range Interpretation Comments GLUCOSE (test code = 2217) 106 MG/DL BUN (test code = 2208) 23 MG/DL CREATININE (test code = 2214) 0.66 MG/DL eGFR AMER. (test code 114 ML/MIN/1.73 = 51489) eGFR NON- AMER. (test 99 ML/MIN/1.73 code = 28189) CALC BUN/CREAT (test code = 35 RATIO [...] code = 2821) 0.335 UIU/ML COMPREHENSIVE METABOLIC [id number] 00:00:00 Test Item Value Reference Range Interpretation Comments GLUCOSE (test code = 2217) 106 MG/DL BUN (test code = 2208) 23 MG/DL CREATININE (test code = 2214) 0.66 MG/DL eGFR AMER. (test code 114 ML/MIN/1.73 = 94280) eGFR NON- AMER. (test 99 ML/MIN/1.73 code = 68325) CALC BUN/CREAT (test code = 35 RATIO [...] code = 2821) 0.335 UIU/ML COMPREHENSIVE METABOLIC [id number] 00:00:00 Test Item Value Reference Range Interpretation Comments GLUCOSE (test code = 2217) 106 MG/DL BUN (test code = 2208) 23 MG/DL CREATININE (test code = 2214) 0.66 MG/DL eGFR AMER. (test code 114 ML/MIN/1.73 = 57812) eGFR NON- AMER. (test 99 ML/MIN/1.73 code = 60669) CALC BUN/CREAT (test code = 35 RATIO [...] code = 2219) 31 U/L COMPREHENSIVE METABOLIC [id number] 00:00:00 Test Item Value Reference Range Interpretation Comments GLUCOSE (test code = 2217) 106 MG/DL BUN (test code = 2208) 23 MG/DL CREATININE (test code = 2214) 0.66 MG/DL eGFR AMER. (test code 114 ML/MIN/1.73 = 85957) eGFR NON- AMER. (test 99 ML/MIN/1.73 code = 47232) CALC BUN/CREAT (test code = 35 RATIO [...] CALCULATED T7 (FTI) (test code = 1.71 5130) TSH (test code = 2821) 0.335 UIU/ML THYROID II PROFILE (T3U, T4, T7, TSH)[id number] 00:00:00 Test Item Value Reference Range Interpretation Comments T3 UPTAKE (test code = 2817) 31.6 % T4 (THYROXINE) (test code = 5.4 UG/DL 2819) CALCULATED T7 (FTI) (test code = 1.71 2820) TSH (test code = 2821) 0.335 UIU/ML COMPREHENSIVE METABOLIC [id number] 00:00:00 Test Item Value Reference Range Interpretation Comments GLUCOSE (test code = 2217) 103 MG/DL BUN (test code = 2208) 15 MG/DL CREATININE (test code = 2214) 0.77 MG/DL eGFR AMER. (test code 101 ML/MIN/1.73 = 70724) eGFR NON- AMER. (test 87 ML/MIN/1.73 code = 93324) CALC BUN/CREAT (test code = 19 RATIO [...] code = 2219) 24 U/L COMPREHENSIVE METABOLIC [id number] 00:00:00 Test Item Value Reference Range Interpretation Comments GLUCOSE (test code = 2217) 103 MG/DL BUN (test code = 2208) 15 MG/DL CREATININE (test code = 2214) 0.77 MG/DL eGFR AMER. (test code 101 ML/MIN/1.73 = 12043) eGFR NON- AMER. (test 87 ML/MIN/1.73 code = 87784) CALC BUN/CREAT (test code = 19 RATIO [...] code = 2821) 0.424 UIU/ML COMPREHENSIVE METABOLIC [id number] 00:00:00 Test Item Value Reference Range Interpretation Comments GLUCOSE (test code = 2217) 103 MG/DL BUN (test code = 2208) 15 MG/DL CREATININE (test code = 2214) 0.77 MG/DL eGFR AMER. (test code 101 ML/MIN/1.73 = 31654) eGFR NON- AMER. (test 87 ML/MIN/1.73 code = 77913) CALC BUN/CREAT (test code = 19 RATIO [...] code = 2219) 24 U/L COMPREHENSIVE METABOLIC [id number] 00:00:00 Test Item Value Reference Range Interpretation Comments GLUCOSE (test code = 2217) 103 MG/DL BUN (test code = 2208) 15 MG/DL CREATININE (test code = 2214) 0.77 MG/DL eGFR AMER. (test code 101 ML/MIN/1.73 = 60188) eGFR NON- AMER. (test 87 ML/MIN/1.73 code = 21681) CALC BUN/CREAT (test code = 19 RATIO [...] code = 2821) 0.424 UIU/ML COMPREHENSIVE METABOLIC [id number] 00:00:00 Test Item Value Reference Range Interpretation Comments GLUCOSE (test code = 2217) 103 MG/DL BUN (test code = 2208) 15 MG/DL CREATININE (test code = 2214) 0.77 MG/DL eGFR AMER. (test code 101 ML/MIN/1.73 = 93835) eGFR NON- AMER. (test 87 ML/MIN/1.73 code = 47264) CALC BUN/CREAT (test code = 19 RATIO [...] code = 2821) 0.424 UIU/ML COMPREHENSIVE METABOLIC [id number] 00:00:00 Test Item Value Reference Range Interpretation Comments GLUCOSE (test code = 2217) 103 MG/DL BUN (test code = 2208) 15 MG/DL CREATININE (test code = 2214) 0.77 MG/DL eGFR AMER. (test code 101 ML/MIN/1.73 = 84438) eGFR NON- AMER. (test 87 ML/MIN/1.73 code = 43633) CALC BUN/CREAT (test code = 19 RATIO [...] code = 2219) 24 U/L COMPREHENSIVE METABOLIC [id number] 00:00:00 Test Item Value Reference Range Interpretation Comments GLUCOSE (test code = 2217) 103 MG/DL BUN (test code = 2208) 15 MG/DL CREATININE (test code = 2214) 0.77 MG/DL eGFR AMER. (test code 101 ML/MIN/1.73 = 32674) eGFR NON- AMER. (test 87 ML/MIN/1.73 code = 26520) CALC BUN/CREAT (test code = 19 RATIO [...] (test code = 2821) 0.424 UIU/ML CULTURE, [id number] 00:00:00 Test Item Value Reference Range Interpretation Comments CULTURE, URINE (test SPECIMEN NUMBER: code = 00699) [id number] CULTURE, [id number] 00:00:00 Test Item Value Reference Range Interpretation Comments CULTURE, URINE (test SPECIMEN NUMBER: code = 51907) [id number] CULTURE, [id number] 00:00:00 Test Item Value Reference Range Interpretation Comments CULTURE, URINE (test SPECIMEN NUMBER: code = 35173) [id number] CULTURE, [id number] 00:00:00 Test Item Value Reference Range Interpretation Comments CULTURE, URINE (test SPECIMEN NUMBER: code = 51622) [id number] CULTURE, [id number] 00:00:00 Test Item Value Reference Range Interpretation Comments CULTURE, URINE (test SPECIMEN NUMBER: code = 39255) [id number] CULTURE, [id number] 00:00:00 Test Item Value Reference Range Interpretation Comments CULTURE, URINE (test SPECIMEN NUMBER: code = 69155) [id number] CULTURE, [id number] 00:00:00 Test Item Value Reference Range Interpretation Comments CULTURE, URINE (test SPECIMEN NUMBER: code = 47227) [id number] CULTURE, [id number] 00:00:00 Test Item Value Reference Range Interpretation Comments CULTURE, URINE (test SPECIMEN NUMBER: code = 19327) [id number] CULTURE, [id number] 00:00:00 Test Item Value Reference Range Interpretation Comments CULTURE, URINE (test SPECIMEN NUMBER: code = 51676) [id number] CULTURE, [id number] 00:00:00 Test Item Value Reference Range Interpretation Comments CULTURE, URINE (test SPECIMEN NUMBER: code = 88876) [id number] CULTURE, [id number] 00:00:00 Test Item Value Reference Range Interpretation Comments CULTURE, URINE (test SPECIMEN NUMBER: code = 05655) [id number] CULTURE, [id number] 00:00:00 Test Item Value Reference Range Interpretation Comments CULTURE, URINE (test SPECIMEN NUMBER: code = 81229) [id number] CULTURE, [id number] 00:00:00 Test Item Value Reference Range Interpretation Comments CULTURE, URINE (test SPECIMEN NUMBER: code = 45376) [id number] CULTURE, [id number] 00:00:00 Test Item Value Reference Range Interpretation Comments CULTURE, URINE (test SPECIMEN NUMBER: code = 82267) [id number]
[2022-11-23 10:55] LABS: Absolute Lymphocytes (CBC) 2.1 K/uL (0.7-4.9); Hematocrit 49.6 % (36.0-45.0); Lymphocytes % 12.4 % (15.3-44.8); MCV 89.6 fL (80-100); Platelets 427 thou/uL (152-406); RBC Red Blood Cell Count 5.54 M/uL (3.86-4.86)
[2022-11-23] MEDS ORDERED: METOCLOPRAMIDE 10 MG/2mL INJ ONE (10:58)
[2022-11-23] MEDS ORDERED: DIPHENHYDRAMINE 50 MG/ML VIAL ONE (10:58)
[2022-11-23] MEDS ORDERED: MORPHINE 4 MG/ML SYR ONE (11:00)
[2022-11-23 11:07] LABS: Specific Gravity 1.017 (1.005-1.030); Urine Bacteria >50 /HPF (<20); Urine Bilirubin NEGATIVE (Negative); Urine Blood Trace (Negative); Urine Clarity Extremely Turbid (Clear); Urine Color Yellow (Yellow); Urine Glucose 2+ (Negative); Urine Mucus 1+ /HPF (None Seen); Urine Protein 3+ (Negative); Urine Urobilinogen Normal (Normal); Urine pH 6.5 (5.0-7.0)
[2022-11-23 11:09] LABS: Albumin 4.6 g/dL (3.4-5.0); Bilirubin Total 0.4 mg/dL (0.2-1.0); Protein, Total 10.1 g/dL (6.4-8.2)
[2022-11-23] MEDS ORDERED: NA CHLORIDE 0.9% 500 ML ONE (11:20)
[2022-11-23 11:44] LABS: Arterial Blood Carboxyhemoglob 1.8 % (0-1.5); Blood Gas Oxyhemoglobin 49.1 % (94-97)
[2022-11-23] MEDS ORDERED: NA CHLORIDE 0.9% 100 ML ONE (11:49)
[2022-11-23] MEDS ORDERED: PIPERACIL/TAZO 3.375 GM VIAL IV ONE (11:49)
[2022-11-23] MEDS ORDERED: ONDANSETRON 4 MG/2 ML VIAL ONE ×2 (12:20→13:36)
--- NOTE | 2022-11-23 13:46 | EDPHYS ---
Physician Documentation [facility] Name: Jaimie Amanda Age: 61 yrs Sex: Female : 1960 Arrival Date: 11/23/2022 Time: 10:08 Bed 8 Private MD: ED Physician Colleen Andrea HPI: 11/23 10:50 This 61 yrs old Female presents to ER via Ambulatory with complaints of Abdominal Pain. ci 10:50 The patient has experienced similar episodes in the past, a few times. Patient is a ci 61-year-old female with PMH chronic abdominal pain, hyponatremia who presents to the ED with right lower quadrant abdominal pain that the last couple of days. Pain is sharp, constant, no aggravating or relieving factors. Patient does have some nausea but no vomiting. She denies urinary symptoms. She has had a tummy tuck but denies any other abdominal surgeries. Denies fever, chills, vaginal bleeding, vaginal discharge.. Historical: - Allergies: 10:11 hydrochlorothiazide; ss - Home Meds: 10:36 carvedilol 12.5 mg Oral tablet 1 tab daily [Active]; levothyroxine 137 mcg capsule 1 hb cap daily [Active]; losartan 50 mg Oral tablet 1 tab daily [Active]; metformin 500 mg Oral tablet 1 tab 2 times per day [Active]; oxcarbazepine 600 mg Oral tablet [Active]; venlafaxine 100 mg Oral tablet 1 tab 3 times per day [Active]; - PMHx: 10:11 Anxiety; Chronic Abdominal Pain; Hypertensive disorder; Hypothyroidism; low NA; NIDDM; ss - PSHx: 10:11 Thyroidectomy; ss - Immunization history:: Adult Immunizations unknown. - Social history:: Smoking status: unknown. ROS: 10:52 Constitutional: Negative for fever, chills, and weight loss, Eyes: Negative for injury, ci pain, redness, and discharge, Cardiovascular: Negative for chest pain, palpitations, and edema, Respiratory: Negative for shortness of breath, cough, wheezing, and pleuritic chest pain, Abdomen/GI: Positive for abdominal pain, nausea, vomiting. Negative diarrhea, and constipation, : Negative for injury, bleeding, discharge, and swelling, MS/Extremity: Negative for injury and deformity, Skin: Negative for injury, rash, and discoloration, Neuro: Negative for headache, weakness, numbness, tingling, and seizure, Psych: Negative for depression, anxiety, suicide ideation, homicidal ideation, and hallucinations. Exam: 10:52 Constitutional: This is a well developed, well nourished patient who is awake, alert, ci and in no acute distress. Head/Face: Normocephalic, atraumatic. Eyes: Pupils equal round and reactive to light, extra-ocular motions intact. Lids and lashes normal. Conjunctiva and sclera are non-icteric and not injected. Cornea within normal limits. Periorbital areas with no swelling, redness, or edema. ENT: Nares patent. No nasal discharge, no septal abnormalities noted. Tympanic membranes are normal and external auditory canals are clear. Oropharynx with no redness, swelling, or masses, exudates, or evidence of obstruction, uvula midline. Mucous membranes moist. Neck: Trachea midline, no thyromegaly or masses palpated, and no cervical lymphadenopathy. Supple, full range of motion without nuchal rigidity, or vertebral point tenderness. No Meningismus. Chest/axilla: Normal chest wall appearance and motion. Nontender with no deformity. No lesions are appreciated. Cardiovascular: Tachycardic and rhythm with a normal S1 and S2. No gallops, murmurs, or rubs. No JVD. No pulse deficit Respiratory: Lungs have equal breath sounds bilaterally, clear to auscultation and percussion. No rales, rhonchi or wheezes noted. No increased work of breathing, no retractions or nasal flaring. Abdomen/GI: Soft, with normal bowel sounds. No distension or tympany. Generalized tenderness to palpation, worse in the right lower quadrant. No guarding or rebound tenderness present. Skin: Warm, dry with normal turgor. Normal color with no rashes, no lesions, and no evidence of cellulitis. MS/ Extremity: Pulses equal, no cyanosis. Neurovascular intact. Full, normal range of motion. Neuro: Awake and alert, GCS 15, oriented to person, place, time, and situation. Cranial nerves II-XII grossly intact. Motor strength 5/5 in all extremities. Sensory grossly intact. Cerebellar exam normal. Normal gait. Psych: Awake, alert, with orientation to person, place and time. Anxious. Behavior, mood, and affect are within normal limits. Vital Signs: 10:10 BP 150 / 135; Pulse 133; Resp 34; Temp 97(TE); Pulse Ox 100% ; Weight 68.04 kg; Height ss 5 ft. 7 in. ; Pain 10/10; 11:45 BP 201 / 109; Pulse 103; Resp 18; Temp 98; Pulse Ox 99% ; rs5 13:00 BP 193 / 96; Pulse 102; Resp 17; Pulse Ox 99% ; rs5 10:10 Body Mass Index 23.49 (68.04 kg, 170.18 cm) ss 10:10 Pain Scale: Adult ss MDM: 10:16 Patient medically screened. ci 10:52 Differential Diagnosis sepsis, Appendicitis, UTI, ovarian torsion, nephrolithiasis, ci bowel obstruction, bowel perforation. Historians other than the Patient: Parent: Patient's mother. External Records Reviewed: Outpatient record: Multiple ED visits for similar complaint. Last visit was 10/29/2022. Found to be hyponatremic with sodium of 122 at that time.. Care significantly affected by the following chronic conditions: Diabetes, Hypertension. Care significantly affected by the following Social Determinants of Health: Medical noncompliance. Patient reports she does not take her salt tablets, history of noncompliance with antihypertensives.. 12:00 Data reviewed: vital signs, nurses notes, old medical records, lab test result(s), EKG. ci Response to treatment: the patient's symptoms have mildly improved after treatment. 12:26 Awaiting: CT scan results. ci 12:27 ED course: Patient has a lactate of 7.3, some leukocytosis, suspicion for ci intra-abdominal pathology. She was empirically covered with Zosyn. Patient initially declined CT abdomen/pelvis. I did discuss with patient again and she stated it was okay to obtain imaging. She also has an ABDIAZIZ with creatinine of 1.61. Due to her hyponatremia, sodium 121, she was gently hydrated with 500 mL NS bolus.. 13:43 ED course: Patient refused getting CAT scan of her abdomen after multiple discussions ci with patient. Patient requesting to leave AGAINST MEDICAL ADVICE. I advised patient that she has a serious pathology and could . Patient understands risk and insist on leaving AGAINST MEDICAL ADVICE. Patient's mother at bedside said she will call 911 if her symptoms worsen.. 11/23 10:26 Order name: CBC with Diff; Complete Time: 10:58 ci 11/23 10:26 Order name: CMP; Complete Time: 11:14 ci 11/23 12:23 Interpretation: NA 121; CRE 1.61; GLUC 257. ci 11/23 10:26 Order name: Lipase; Complete Time: 11:14 ci 11/23 10:26 Order name: Urinalysis w/ reflexes; Complete Time: 11:14 ci 11/23 12:23 Interpretation: Abnormal: UBACT >50; URBC 5-10. ci 11/23 10:26 Order name: Lactate w/ 2H reflex if indic.; Complete Time: 11:14 ci 11/23 12:24 Interpretation: Abnormal: LAC 7.3. ci 11/23 10:31 Order name: Glucose, Ancillary Testing; Complete Time: 10:58 EDMS 11/23 11:05 Interpretation: Abnormal: GLUC,ANCIL 293. ci 11/23 11:14 Order name: Blood Culture Adult (2) ci 11/23 11:26 Order name: ABG; Complete Time: 13:41 ds4 11/23 13:42 Interpretation: ABGPO2 30.3; ABGCOHB 1.8; ABGTHB 17.1. ci 11/23 10:26 Order name: IV Saline Lock; Complete Time: 10:27 ci 11/23 10:26 Order name: Labs collected and sent; Complete Time: 10:27 ci Administered Medications: 10:48 Drug: metoCLOPramide IVP 10 mg Route: IVP; Site: right antecubital; ko1 11:05 Follow up: Response: No adverse reaction rs5 10:53 Drug: diphenhydrAMINE IVP 12.5 mg Route: IVP; Site: right antecubital; ko1 11:05 Follow up: Response: No adverse reaction rs5 10:55 Drug: morphine IVP or IV 4 mg Route: IVP; Infused Over: 4 mins; Site: right antecubital;ko1 11:15 Follow up: Response: No adverse reaction rs5 11:35 Drug: NS 0.9% IV 500 ml Route: IV; Rate: 250 ml/hr; Site: right antecubital; ko1 11:50 Follow up: Response: No adverse reaction rs5 11:54 Drug: Piperacillin-Tazobactam IVPB 3.375 grams Route: IVPB; Infused Over: 60 mins; ld1 Site: right antecubital; 12:07 Follow up: Response: No adverse reaction rs5 11:54 Drug: Ondansetron IVP 4 mg Route: IVP; Site: right antecubital; ld1 12:07 Follow up: Response: No adverse reaction rs5 Disposition Summary: 11/23/22 13:45 Left Against Medical Advice Location: Home ci Problem: an acute exacerbation ci Symptoms: have worsened ci Condition: Serious ci Critical care time excluding procedures: 12:00 Critical care time: Bedside Care: 35 minutes. Total time: 35 minutes ci Signatures: Dispatcher [employer] EDMS Bel Gutierrez, RN RN Gail Espinoza RN RN Maritza Singh RN RN ld1 Vy Cortez RN RN ko1 Colleen Andera Ricky RN rs5 Corrections: (The following items were deleted from the chart) 12:26 12:23 UBACT >50; URBC 5-10. ci ci 13:56 11:15 Abdomen Pelvis W Con+CT.RAD.BRZ ordered. EDMN EDMN 11/24 09:28 11/23 10:52 Differential Diagnosis sepsis, Appendicitis, UTI, ovarian torsion, ci nephrolithiasis. ci 11/24 09:30 11/23 13:43 ED course: Patient refused getting CAT scan of her abdomen. Patient ci requesting to leave AGAINST MEDICAL ADVICE. I advised patient that she has a serious pathology and could . Patient understands risk and insist on leaving AGAINST MEDICAL ADVICE.. ci
--- NOTE | 2022-11-23 13:46 | ER ---
Nurse's Notes [facility] Name: Jaimie Amanda Age: 61 yrs Sex: Female : 1960 Arrival Date: 11/23/2022 Time: 10:08 Bed 8 Private MD: Diagnosis: Presentation: 11/23 10:10 Chief complaint: Patient states: abd pain and nausea that began 2 days ago. Coronavirus ss screen: Client denies travel out of the [place] in the last 14 days. Ebola Screen: Patient denies exposure to infectious person. Patient denies travel to an Ebola-affected area in the 21 days before illness onset. Initial Sepsis Screen: Does the patient meet any 2 criteria? No. Patient's initial sepsis screen is negative. Does the patient have a suspected source of infection? No. Patient's initial sepsis screen is negative. Risk Assessment: Do you want to hurt yourself or someone else? Patient reports no desire to harm self or others. Onset of symptoms was November 21, 2022. 10:10 Method Of Arrival: Ambulatory ss 10:10 Acuity: ZHEN 2 ss Triage Assessment: 10:10 General: Appears distressed, uncomfortable, Behavior is restless. Pain: Complains of ss pain in right upper quadrant and right lower quadrant Pain began 2-3 days ago. Is continuous. Neuro: Level of Consciousness is awake, alert. Respiratory: Airway is patent Respiratory effort is even, unlabored. Derm: Skin is clammy, Skin temperature is cool. Historical: - Allergies: 10:11 hydrochlorothiazide; ss - Home Meds: 10:36 carvedilol 12.5 mg Oral tablet 1 tab daily [Active]; levothyroxine 137 mcg capsule 1 hb cap daily [Active]; losartan 50 mg Oral tablet 1 tab daily [Active]; metformin 500 mg Oral tablet 1 tab 2 times per day [Active]; oxcarbazepine 600 mg Oral tablet [Active]; venlafaxine 100 mg Oral tablet 1 tab 3 times per day [Active]; - PMHx: 10:11 Anxiety; Chronic Abdominal Pain; Hypertensive disorder; Hypothyroidism; low NA; NIDDM; ss - PSHx: 10:11 Thyroidectomy; ss - Immunization history:: Adult Immunizations unknown. - Social history:: Smoking status: unknown. Screenin:43 [facility] ED Fall Risk Assessment (Adult) History of falling in the last 3 months, ko1 including since admission No falls in past 3 months (0 pts) Confusion or Disorientation No (0 pts) Intoxicated or Sedated No (0 pts) Impaired Gait No (0 pts) Mobility Assist Device Used No (0 pt) Altered Elimination No (0 pt) Score/Fall Risk Level 0 - 2 = Low Risk Oriented to surroundings, Maintained a safe environment, Educated pt \\T\\ family on fall prevention, incl call for assistance when getting out of bed, Assessed \\T\\ reinforced patient's understanding of fall precautions, Provided non-skid footwear, Hourly rounding (assess needs \\T\\ fall precautionary measures) done, Used ambulatory aids as needed (educated on \\T\\ assisted with), Used gait belt as appropriate. Abuse screen: Denies threats or abuse. Denies injuries from another. Nutritional screening: No deficits noted. Tuberculosis screening: No symptoms or risk factors identified. Assessment: 10:27 General: Appears distressed, uncomfortable, Behavior is cooperative, anxious. rs5 10:27 Pain: Complains of pain in generalized abdominal pain Pain does not radiate. Pain rs5 currently is 6 out of 10 on a pain scale. Quality of pain is described as aching, Pain began this morning Is continuous. Neuro: Level of Consciousness is awake, alert, obeys commands, Oriented to person, place, time, situation. Cardiovascular: Rhythm is sinus tachycardia. Respiratory: Airway is patent Respiratory effort is even, unlabored, Respiratory pattern is regular, symmetrical. GI: Abdomen is round non-distended, Bowel sounds present X 4 quads. Abd is soft and non tender X 4 quads. Reports nausea, vomiting. : No signs and/or symptoms were reported regarding the genitourinary system. EENT: No signs and/or symptoms were reported regarding the EENT system. Derm: Skin is pink, warm \\T\\ dry. Musculoskeletal: Range of motion: intact in all extremities. 11:13 Reassessment: Dr. Whitley notified of critical lab value Lactate 7.3. ss 11:25 Reassessment: No changes from previously documented assessment. Pt continuously ld1 requesting nausea medication. Notified ERP. See MAR for orders Patient states symptoms have not improved. 12:31 Reassessment: Patient and/or family updated on plan of care and expected duration. Pain ld1 level reassessed. Patient states symptoms have improved. 13:00 Reassessment: Pt constantly moving and difficult to obtain blood pressure. rs5 Vital Signs: 10:10 BP 150 / 135; Pulse 133; Resp 34; Temp 97(TE); Pulse Ox 100% ; Weight 68.04 kg; Height ss 5 ft. 7 in. ; Pain 10/10; 11:45 BP 201 / 109; Pulse 103; Resp 18; Temp 98; Pulse Ox 99% ; rs5 13:00 BP 193 / 96; Pulse 102; Resp 17; Pulse Ox 99% ; rs5 10:10 Body Mass Index 23.49 (68.04 kg, 170.18 cm) ss 10:10 Pain Scale: Adult ss ED Course: 10:10 Patient arrived in ED. mg5 10:10 Arm band placed on right wrist. ss 10:11 Triage completed. ss 10:15 Colleen Andrea is Attending Physician. ci 10:15 Colleen Andrea is Attending Physician. ci 10:25 Inserted saline lock: 20 gauge in right antecubital area, using aseptic technique. ss Blood collected. 10:33 Lactate w/ 2H reflex if indic. Sent. ko1 10:33 CBC with Diff Sent. ko1 10:33 CMP Sent. ko1 10:33 Lipase Sent. ko1 10:43 Vy Cortez, RN is Primary Nurse. ko1 10:43 Urinalysis w/ reflexes Sent. ko1 10:43 Lipase Sent. ko1 10:43 CMP Sent. ko1 10:44 CBC with Diff Sent. ko1 11:07 Urinalysis w/ reflexes Sent. ld1 11:27 Blood Culture Adult (2) Sent. ld1 11:43 Patient has correct armband on for positive identification. Placed in gown. Bed in low ko1 position. Call light in reach. Side rails up X2. Provided Education on: na. Client placed on continuous cardiac and pulse oximetry monitoring. NIBP monitoring applied. alarm security or surveillance monitor on. Door closed. Noise minimized. Lights dimmed. 13:15 No provider procedures requiring assistance completed. rs5 13:15 IV discontinued, intact, bleeding controlled, No redness/swelling at site. Pressure rs5 dressing applied. Administered Medications: 10:48 Drug: metoCLOPramide IVP 10 mg Route: IVP; Site: right antecubital; ko1 11:05 Follow up: Response: No adverse reaction rs5 10:53 Drug: diphenhydrAMINE IVP 12.5 mg Route: IVP; Site: right antecubital; ko1 11:05 Follow up: Response: No adverse reaction rs5 10:55 Drug: morphine IVP or IV 4 mg Route: IVP; Infused Over: 4 mins; Site: right antecubital;ko1 11:15 Follow up: Response: No adverse reaction rs5 11:35 Drug: NS 0.9% IV 500 ml Route: IV; Rate: 250 ml/hr; Site: right antecubital; ko1 11:50 Follow up: Response: No adverse reaction rs5 11:54 Drug: Piperacillin-Tazobactam IVPB 3.375 grams Route: IVPB; Infused Over: 60 mins; ld1 Site: right antecubital; 12:07 Follow up: Response: No adverse reaction rs5 11:54 Drug: Ondansetron IVP 4 mg Route: IVP; Site: right antecubital; ld1 12:07 Follow up: Response: No adverse reaction rs5 Medication: 13:00 VIS not applicable for this client. rs5 Outcome: 13:15 AMA AMA form signed rs5 13:15 Condition: improved 13:15 Demonstrated understanding of need for stay, pt reports "I don't care, I want to leave" 13:30 Patient left the ED. rs5 Signatures: Bel Gutierrez RN RN ss Baxter, Heather, RN RN hb Sims, Lauren, RN RN ld1 Vy Cortez RN RN ko1 Sotelo, Ricky, RN RN rs5 Dana Dos Santos 5 Colleen Andrea Corrections: (The following items were deleted from the chart) 14:06 14:04 Patient left the ED. rs5 rs5
[2022-11-23 14:08] VITALS: BP 150/135; TEMP 97; O2SAT 100
== END 2022-11-23 14:04 | disposition left against medical advice (07) ==
LOC: ER 10:08
DX: R10.31 Right lower quadrant pain (principal); R11.2 Nausea with vomiting, unspecified; E87.1 Hypo-osmolality and hyponatremia; I10 Essential (primary) hypertension; E11.9 Type 2 diabetes mellitus without complications; E03.9 Hypothyroidism, unspecified; Z88.8 Allergy status to other drugs, medicaments and biological substances
CPT/HCPCS: 87040 ×2; 85025; 81001; 36415; 82947; 83605; 83690; 80053; 82805; 96375; 96374; 99285; J2765; J1200; J2543; J2405 ×2; J7040; 93005

== ENCOUNTER 2022-12-24 09:52 | Emergency (ER) | payer OTHER ==
--- OUTSIDE RECORDS SUMMARY | 2022-12-24 10:04 | XMS REPORT | Continuity of Care Document ---
:1960 Author Organization [facility] t Address [address] [place] [address] [place] [id number] Care Team Providers Name Role Phone Sharpless Primary Care Physician MATT SIMPSON Attending Clinician Unavailable MATT SIMPSON Attending Clinician Unavailable Doctor Unassigned, Grace Attending Clinician Unavailable WALLY KRISHNAMURTHY Attending Clinician Unavailable Natacha Brewster Attending Clinician Payers Payer Name Policy Type Policy Number Effective Date Expiration Date Sarina castelan [facility] [id number] 2017 00:00:00 PLUS Problems This patient has [...] r Alcohol intake 2016-05-01 2016-05-01 Current [facility] 00:00:00 00:00:00 non-drinker of Medical nter alcohol (finding) Sex Assigned At [birth year] [facility] 00:00:00 00:00:[address] [facility] Smoking Status Start Date Stop Date Source Smokes tobacco daily 2016-05-01 00:00:00 [facility] Medications Ordered Filled Start Stop Current [...] [facility]: nightly. [address] OXcarbazepi 2017-0 Yes 600mg Q.[id number] Take [address] [facility] [address] ne 2-23 [id number] [facility] (TRILEPTAL) 10:23: 3D mouth 3 Med ical 600 [facility] 59 (three) Center tablet times daily. PARoxetine 2017-0 Yes 40mg QD Take [address] (PAXIL) 40 2-23 [facility] 10:23: nightly. [address] 2017-0 Yes 600mg Q.[id number] Take [address] [facility] [address] ne 2-23 [id number] [facility] (TRILEPTAL) 10:23: 3D mouth 3 Med ical 600 [facility] 59 (three) Center tablet times daily. PARoxetine 2017-0 Yes 40mg QD Take [address] (PAXIL) 40 2-23 [facility] 10:23: nightly. [address] 2017-0 Yes 600mg Q.[id number] Take [address] [facility] ne 2-23 [id number] [facility] (TRILEPTAL) 10:23: 3D mouth 3 Med ical 600 [facility] 59 (three) Center tablet times daily. PARoxetine 2017-0 Yes 40mg QD Take [address] (PAXIL) 40 2-23 [facility] 10:23: nightly. [address] 2017-0 Yes 600mg Q.[id number] Take [address] [facility] [address] ne 2-23 [id number] [facility] (TRILEPTAL) 10:23: 3D mouth 3 Med ical 600 [facility] 59 (three) Center tablet times daily. PARoxetine 2017-0 Yes 40mg QD Take [address] (PAXIL) 40 2-23 [facility] 10:23: nightly. [address] 2017-0 Yes 600mg Q.[id number] Take [address] [facility] [address] ne 2-23 [id number] [facility] (TRILEPTAL) 10:23: 3D mouth 3 Med ical 600 [facility] 59 (three) Center tablet times daily. PARoxetine 2017-0 Yes 40mg QD Take [address] (PAXIL) 40 2-23 [facility] 10:23: nightly. [address] 2017-0 Yes 600mg Q.[id number] Take [address] [address] ne 2-23 [id number] [facility] (TRILEPTAL) 10:23: 3D mouth 3 Med ical 600 [facility] 59 (three) Center tablet times daily. OXcarbazepi 2017-0 Yes 600mg Q.[id number] Take [address] [facility] ne 2-23 [id number] [facility] (TRILEPTAL) 10:23: 3D mouth 3 Med ical 600 [facility] 59 (three) Center tablet times daily. PARoxetine 2017-0 Yes 40mg QD Take [address] (PAXIL) 40 2-23 by [facility] 10:23: nightly. [address] OXcarbazepi 2017-0 Yes 600mg Q.[id number] Take [address] [facility] [address] ne 2-23 [id number] [facility] (TRILEPTAL) 10:23: 3D mouth 3 Med ical 600 [facility] 59 (three) Center tablet times daily. PARoxetine 2017-0 Yes 40mg QD Take [address] (PAXIL) 40 2-23 [facility] 10:23: nightly. [address] OXcarbazepi 2017-0 Yes 600mg Q.[id number] Take [address] [facility] [address] ne 2-23 [id number] [facility] (TRILEPTAL) 10:23: 3D mouth 3 Med ical 600 [facility] 59 (three) Center tablet times daily. PARoxetine 2017-0 Yes 40mg QD Take [address] (PAXIL) 40 2-23 [facility] 10:23: nightly. [address] PARoxetine 2017-0 Yes 40mg QD Take [address] (PAXIL) 40 2-23 by [facility] 10:23: nightly. [address] OXcarbazepi 2017-0 Yes 600mg Q.[id number] Take [address] ne 2-23 [id number] [facility] (TRILEPTAL) 10:23: 3D mouth 3 Med ical 600 [facility] 59 (three) Center tablet times daily. PARoxetine 2017-0 Yes 40mg QD Take [address] (PAXIL) 40 2-23 by [facility] 10:23: nightly. [address] OXcarbazepi 2017-0 Yes 600mg Q.[id number] Take [address] ne 2-23 [id number] [facility] (TRILEPTAL) 10:23: 3D mouth 3 Med ical 600 MG 59 (three) Center tablet times daily. PARoxetine 2017-0 Yes 40mg QD Take [address] (PAXIL) 40 2-23 [facility] 10:23: nightly. [address] 2017-0 Yes 600mg Q.[id number] Take [address] [facility] [address] ne 2-23 [id number] [facility] (TRILEPTAL) 10:23: 3D mouth 3 Med ical 600 MG 59 (three) Center tablet times daily. PARoxetine 2017-0 Yes 40mg QD Take [address] (PAXIL) 40 2-23 [facility] 10:23: nightly. [address] 2017-0 Yes 600mg Q.[id number] Take [address] ne 2-23 [id number] [facility] (TRILEPTAL) 10:23: 3D mouth 3 Med ical 600 MG 59 (three) Center tablet times daily. PARoxetine 2017-0 Yes 40mg QD Take [address] (PAXIL) 40 2-23 [facility] 10:23: nightly. [address] 2017-0 Yes 600mg Q.[id number] Take [address] ne 2-23 [id number] [facility] (TRILEPTAL) 10:23: 3D mouth 3 Med ical 600 MG 59 (three) Center tablet times daily. PARoxetine 2017-0 Yes 40mg QD Take [address] (PAXIL) 40 2-23 by [facility] 10:23: nightly. [address] OXcarbazepi 2017-0 Yes 600mg Q.[id number] Take [address] [facility] ne 2-23 [id number] [facility] (TRILEPTAL) 10:23: 3D mouth 3 Med ical 600 [facility] 59 (three) Center tablet times daily. PARoxetine 2017-0 Yes 40mg QD Take [address] (PAXIL) 40 2-23 [facility] 10:23: nightly. [address] 2017-0 Yes 600mg Q.[id number] Take [address] [facility] ne 2-23 [id number] mg [facility] (TRILEPTAL) 10:23: 3D mouth 3 Med ical 600 [facility] 59 (three) Center tablet times daily. PARoxetine 2017-0 Yes 40mg QD Take [address] (PAXIL) 40 2-23 by [facility] 10:23: nightly. [facility] [address] [place] OXcarbazepi 2017-0 Yes 600mg Q.[id number] Take [address] ne 2-23 [id number] mg [facility] (TRILEPTAL) 10:23: 3D mouth 3 Med ical 600 MG 59 (three) Center tablet times daily. OXcarbazepi 2017-0 Yes 600mg Q.[id number] Take [address] ne 2-23 [id number] mg by [facility] (TRILEPTAL) 10:23: 3D mouth 3 Med ical 600 [facility] 59 (three) Center tablet times daily. PARoxetine 2017-0 Yes 40mg QD Take [address] (PAXIL) 40 2-23 by [facility] 10:23: nightly. [facility] [address] [place] OXcarbazepi 2017-0 Yes 600mg Q.[id number] Take [address] ne 2-23 [id number] mg by [facility] (TRILEPTAL) 10:23: 3D mouth 3 Med ical 600 [facility] 59 (three) Center tablet times daily. PARoxetine 2017-0 Yes 40mg QD Take [address] (PAXIL) 40 2-23 by [facility] 10:23: nightly. [facility] [address] [place] PARoxetine 2017-0 Yes 40mg QD Take [address] (PAXIL) 40 2-23 by [facility] 10:23: nightly. [facility] [address] [place] OXcarbazepi 2017-0 Yes 600mg Q.[id number] Take [address] ne 2-23 [id number] mg [facility] (TRILEPTAL) 10:23: 3D mouth 3 Med ical 600 [facility] 59 (three) Center tablet times daily. PARoxetine 2017-0 Yes 40mg QD Take [address] (PAXIL) 40 2-23 by [facility] 10:23: nightly. [facility] [address] [place] OXcarbazepi 2017-0 Yes 600mg Q.[id number] Take [address] ne 2-23 [id number] mg [facility] (TRILEPTAL) 10:23: 3D mouth 3 Med ical 600 [facility] 59 (three) Center tablet times daily. PARoxetine 2017-0 Yes 40mg QD Take [address] (PAXIL) 40 2-23 by [facility] 10:23: nightly. [facility] [address] [place] OXcarbazepi 2017-0 Yes 600mg Q.[id number] Take [address] ne 2-23 [id number] mg [facility] (TRILEPTAL) 10:23: 3D mouth 3 Med ical 600 MG 59 (three) Center tablet times daily. PARoxetine 2017-0 Yes 40mg QD Take [address] (PAXIL) 40 2-23 [facility] 10:23: nightly. [facility] Q.[id number] Take [address] ne 2-23 [id number] mg [facility] (TRILEPTAL) 10:23: 3D mouth 3 Med ical 600 MG 59 (three) Center tablet times daily. PARoxetine 2017-0 Yes 40mg QD Take [address] (PAXIL) 40 2-23 by [facility] 10:23: nightly. [facility] Yes 600[facility] Q.[id number] Take [address] ne 2-23 [id number] mg [facility] (TRILEPTAL) 10:23: 3D mouth 3 Med ical 600 [facility] 59 (three) Center tablet times daily. PARoxetine 2017-0 Yes 40mg QD Take [address] (PAXIL) 40 2-23 by [facility] 10:23: nightly. [facility] [address] [place] OXcarbazepi 2017-0 Yes 600mg Q.[id number] Take [address] ne 2-23 [id number] mg by [facility] (TRILEPTAL) 10:23: 3D mouth 3 Med ical 600 MG 59 (three) Center tablet times daily. PARoxetine 2017-0 Yes 40mg QD Take [address] (PAXIL) 40 2-23 by [facility] 10:23: nightly. [facility] Yes 600[facility] Q.[id number] Take [address] ne 2-23 [id number] mg by [facility] (TRILEPTAL) 10:23: 3D mouth 3 Med ical 600 [facility] 59 (three) Center tablet times daily. OXcarbazepi 2017-0 Yes 600mg Q.[id number] Take [address] [facility] ne 2-23 [id number] mg [facility] (TRILEPTAL) 10:23: 3D mouth 3 Med ical 600 MG 59 (three) Center tablet times daily. PARoxetine 2017-0 Yes 40mg QD Take [address] (PAXIL) 40 2-23 by [facility] tablet 10:23: nightly. [facility] [address] [place] OXcarbazepi 2017-0 Yes 600mg Q.[id number] Take [address] ne 2-23 [id number] mg by [facility] (TRILEPTAL) 10:23: 3D mouth 3 Med ical 600 MG 59 (three) Center tablet times daily. PARoxetine 2017-0 Yes 40mg QD Take [address] (PAXIL) 40 2-23 by [facility] 10:23: nightly. [facility] [address] [place] OXcarbazepi 2017-0 Yes 600mg Q.[id number] Take [address] ne 2-23 [id number] mg by [facility] (TRILEPTAL) 10:23: 3D mouth 3 Med ical 600 MG 59 (three) Center tablet times daily. PARoxetine 2017-0 Yes 40mg QD Take [address] (PAXIL) 40 2-23 by [facility] tablet 10:23: nightly. [facility] [address] [place] PARoxetine 2017-0 Yes 40mg QD Take [address] (PAXIL) 40 2-23 by [facility] 10:23: nightly. [facility] [address] [place] OXcarbazepi 2017-0 Yes 600mg Q.[id number] Take [address] ne 2-23 [id number] mg by [facility] (TRILEPTAL) 10:23: 3D mouth 3 Med ical 600 MG 59 (three) Center tablet times daily. PARoxetine 2017-0 Yes 40mg QD Take [address] (PAXIL) 40 2-23 by [facility] 10:23: nightly. [facility] [address] [place] OXcarbazepi 2017-0 Yes 600mg Q.[id number] Take [address] ne 2-23 [id number] mg by [facility] (TRILEPTAL) 10:23: 3D mouth 3 Med ical 600 MG 59 (three) Center tablet times daily. PARoxetine 2017-0 Yes 40mg QD Take [address] (PAXIL) 40 2-23 by [facility] 10:23: nightly. [facility] [address] [place] OXcarbazepi 2017-0 Yes 600mg Q.[id number] Take [address] ne 2-23 [id number] mg [facility] (TRILEPTAL) 10:23: 3D mouth 3 Med ical 600 MG 59 (three) Center tablet times daily. PARoxetine 2017-0 Yes 40mg QD Take [address] (PAXIL) 40 2-23 by [facility] 10:23: [facility]ly. [address]-0 Yes 600mg Q.[id number] Take [address] ne 2-23 [id number] mg [facility] (TRILEPTAL) 10:23: 3D mouth 3 Med ical 600 MG 59 (three) Center tablet times daily. PARoxetine 2017-0 Yes 40mg QD Take [address] (PAXIL) 40 2-23 by [facility] 10:23: nightly. [facility] 600[facility] Q.[id number] Take [address] ne 2-23 [id number] mg [facility] (TRILEPTAL) 10:23: 3D mouth 3 Med ical 600 MG 59 (three) Center tablet times daily. PARoxetine 2017-0 Yes 40mg QD Take [address] (PAXIL) 40 2-23 by [facility] tablet 10:23: nightly. [facility] [address] [place] OXcarbazepi 2017-0 Yes 600mg Q.[id number] Take [address] ne 2-23 [id number] mg [facility] (TRILEPTAL) 10:23: 3D mouth 3 Med ical 600 MG 59 (three) Center tablet times daily. PARoxetine 2017-0 Yes 40mg QD Take [address] (PAXIL) 40 2-23 by [facility] 10:23: nightly. [facility] OXcarbazepi 2017-0 Yes 600mg Q.[id number] Take [address] [facility] ne 2-23 [id number] [facility] (TRILEPTAL) 10:23: 3D mouth 3 Med ical 600 MG 59 (three) Center tablet times daily. PARoxetine 2017-0 Yes 40mg QD Take [address] (PAXIL) 40 2-23 by [facility] 10:23: nightly. [facility] OXcarbazepi 2017-0 Yes 600mg Q.[id number] Take [address] [facility] ne 2-23 [id number] mg by [facility] (TRILEPTAL) 10:23: 3D mouth 3 Med ical 600 MG 59 (three) Center tablet times daily. OXcarbazepi 2017-0 Yes 600mg Q.[id number] Take [address] [facility] ne 2-23 [id number] mg [facility] (TRILEPTAL) 10:23: 3D mouth 3 Med ical 600 MG 59 (three) Center tablet times daily. PARoxetine 2017-0 Yes 40mg QD Take [address] (PAXIL) 40 2-23 by [facility] 10:23: nightly. [facility] OXcarbazepi 2017-0 Yes 600mg Q.[id number] Take [address] [facility] ne 2-23 [id number] mg by [facility] (TRILEPTAL) 10:23: 3D mouth 3 Med ical 600 MG 59 (three) Center tablet times daily. PARoxetine 2017-0 Yes 40mg QD Take [address] (PAXIL) 40 2-23 by [facility] 10:23: nightly. [facility] OXcarbazepi 2017-0 Yes 600mg Q.[id number] Take [address] ne 2-23 [id number] mg by [facility] (TRILEPTAL) 10:23: 3D mouth 3 Med ical 600 MG 59 (three) Center tablet times daily. PARoxetine 2017-0 Yes 40mg QD Take [address] (PAXIL) 40 2-23 by [facility] 10:23: nightly. [facility] OXcarbazepi 2017-0 Yes 600mg Q.[id number] Take [address] [facility] ne 2-23 [id number] mg by [facility] (TRILEPTAL) 10:23: 3D mouth 3 Med ical 600 [facility] 59 (three) Center tablet times daily. PARoxetine 2017-0 Yes 40mg QD Take [address] (PAXIL) 40 2-23 by [facility] 10:23: nightly. [address] PARoxetine 2017-0 Yes 40mg QD Take [address] (PAXIL) 40 2-23 by [facility] 10:23: nightly. [address] OXcarbazepi 2017-0 Yes 600mg Q.[id number] Take [address] ne 2-23 [id number] mg by [facility] (TRILEPTAL) 10:23: 3D mouth 3 Med ical 600 MG 59 (three) Center tablet times daily. PARoxetine 2017-0 Yes 40mg QD Take [address] (PAXIL) 40 2-23 by [facility] 10:23: nightly. [address] OXcarbazepi 2017-0 Yes 600mg Q.[id number] Take [address] ne 2-23 [id number] mg by [facility] (TRILEPTAL) 10:23: 3D mouth 3 Med ical 600 MG 59 (three) Center tablet times daily. PARoxetine 2017-0 Yes 40mg QD Take [address] (PAXIL) 40 2-23 by [facility] 10:23: nightly. [address] OXcarbazepi 2017-0 Yes 600mg Q.[id number] Take [address] ne 2-23 [id number] mg by [facility] (TRILEPTAL) 10:23: 3D mouth 3 Med ical 600 MG 59 (three) Center tablet times daily. PARoxetine 2017-0 Yes 40mg QD Take [address] (PAXIL) 40 2-23 by [facility] 10:23: nightly. [address] OXcarbazepi 2017-0 Yes 600mg Q.[id number] Take [address] ne 2-23 [id number] mg [facility] (TRILEPTAL) 10:23: 3D mouth 3 Med ical 600 MG 59 (three) Center tablet times daily. PARoxetine 2017-0 Yes 40mg QD Take [address] (PAXIL) 40 2-23 by [facility] 10:23: nightly. [address] OXcarbazepi 2017-0 Yes 600mg Q.[id number] Take [address] ne 2-23 [id number] mg by [facility] (TRILEPTAL) 10:23: 3D mouth 3 Med ical 600 MG 59 (three) Center tablet times daily. PARoxetine 2017-0 Yes 40mg QD Take [address] (PAXIL) 40 2-23 by [facility] 10:23: nightly. [address] OXcarbazepi 2017-0 Yes 600mg Q.[id number] Take [address] ne 2-23 [id number] mg [facility] (TRILEPTAL) 10:23: 3D mouth 3 Med ical 600 MG 59 (three) Center tablet times daily. PARoxetine 2017-0 Yes 40mg QD Take [address] (PAXIL) 40 2-23 by [facility] 10:23: nightly. [address] OXcarbazepi 2017-0 Yes 600mg Q.[id number] Take [address] ne 2-23 [id number] mg [facility] (TRILEPTAL) 10:23: 3D mouth 3 Med ical 600 MG 59 (three) Center tablet times daily. PARoxetine 2017-0 Yes 40mg QD Take [address] (PAXIL) 40 2-23 by [facility] 10:23: nightly. [address] OXcarbazepi 2017-0 Yes 600mg Q.[id number] Take [address] ne 2-23 [id number] mg [facility] (TRILEPTAL) 10:23: 3D mouth 3 Med ical 600 [facility] 59 (three) Center tablet times daily. OXcarbazepi 2017-0 Yes 600mg Q.[id number] Take [address] ne 2-23 [id number] mg [facility] (TRILEPTAL) 10:23: 3D mouth 3 Med ical 600 MG 59 (three) Center tablet times daily. PARoxetine 2017-0 Yes 40mg QD Take [address] (PAXIL) 40 2-23 by [facility] 10:23: nightly. [address] OXcarbazepi 2017-0 Yes 600mg Q.[id number] Take [address] ne 2-23 [id number] mg by [facility] (TRILEPTAL) 10:23: 3D mouth 3 Med ical 600 [facility] 59 (three) Center tablet times daily. PARoxetine 2017-0 Yes 40mg QD Take [address] (PAXIL) 40 2-23 by [facility] 10:23: nightly. [address] OXcarbazepi 2017-0 Yes 600mg Q.[id number] Take [address] ne 2-23 [id number] mg by [facility] (TRILEPTAL) 10:23: 3D mouth 3 Med ical 600 [facility] 59 (three) Center tablet times daily. PARoxetine 2017-0 Yes 40mg QD Take [address] (PAXIL) 40 2-23 by [facility] 10:23: nightly. [address] PARoxetine 2017-0 Yes 40mg QD Take [address] (PAXIL) 40 2-23 by [facility] 10:23: nightly. [address] OXcarbazepi 2017-0 Yes 600mg Q.[id number] Take [address] ne 2-23 [id number] [facility] (TRILEPTAL) 10:23: 3D mouth 3 Med ical 600 [facility] 59 (three) Center tablet times daily. PARoxetine 2017-0 Yes 40mg QD Take [address] (PAXIL) 40 2-23 by [facility] 10:23: nightly. [address] OXcarbazepi 2017-0 Yes 600mg Q.[id number] Take [address] ne 2-23 [id number] [facility] (TRILEPTAL) 10:23: 3D mouth 3 Med ical 600 [facility] 59 (three) Center tablet times daily. LORazepam 2017 Yes 1mg Take [address] [facility] (ATIVAN) [...] Goal Plan of Care Note [code = 71663-3] Goal Plan of Care Note [code = 61772-7] Goal Plan of Care Note [code = 65463-3] Goal Plan of Care Note [code = 13828-2] Goal Plan of Care Note [code = 48935-4] Goal Plan of Care Note [code = 53264-3] Goal Plan of Care Note [code = 34092-9] Goal Plan of Care Note [code = 50777-9] Goal Plan of Care Note [code = 85480-9] Goal Plan of Care Note [code = 63254-7] Goal Plan of Care Note [code = 67506-3] Goal Plan of Care Note [code = 10793-8] Goal Plan of Care Note [code = 12523-6] Goal Plan of Care Note [code = 90768-5] Goal Plan of Care Note [code = 59986-2] Goal Plan of Care Note [code = 65278-3] Goal Plan of Care Note [code = 46126-5] Goal Plan of Care Note [code = 59238-6] Goal Plan of Care Note [code = 50554-0] Goal Plan of Care Note [code = 42970-0] Goal Plan of Care Note [code = 52631-4] Goal Plan of Care Note [code = 11067-7] Goal Plan of Care Note [code = 01473-9] Goal Plan of Care Note [code = 54604-9] Goal Plan of Care Note [code = 30915-7] Goal Plan of Care Note [code = 23700-0] Goal Plan of Care Note [code = 35143-2] Goal Plan of Care Note [code = 45194-1] Goal Plan of Care Note [code = 84920-6] Goal Plan of Care Note [code = 60978-2] Goal Plan of Care Note [code = 28289-8] Goal Plan of Care Note [code = 19547-0] Goal Plan of Care Note [code = 81391-4] Goal Plan of Care Note [code = 74556-9] Goal Plan of Care Note [code = 45586-7] Goal Plan of Care Note [code = 02107-1] Goal Plan of Care Note [code = 26285-3] Goal Plan of Care Note [code = 06589-9] Goal Plan of Care Note [code = 04295-3] Goal Plan of Care Note [code = 38782-2] Goal Plan of Care Note [code = 78826-1] Goal Plan of Care Note [code = 81768-5] Goal Plan of Care Note [code = 33777-2] Goal Plan of Care Note [code = 54137-0] Goal Plan of Care Note [code = 37118-9] Goal Plan of Care Note [code = 50891-7] Goal Plan of Care Note [code = 24307-9] Goal Plan of Care Note [code = 88695-3] Goal Plan of Care Note [code = 45287-2] Goal Plan of Care Note [code = 60354-6] Goal Plan of Care Note [code = 96939-1] Goal Plan of Care Note [code = 76618-9] Goal Plan of Care Note [code = 66877-1] Goal Plan of Care Note [code = 66277-9] Goal Plan of Care Note [code = 84838-6] Goal Plan of Care Note [code = 31988-0] Goal Plan of Care Note [code = 49596-7] Goal Plan of Care Note [code = 52281-2] Goal Plan of Care Note [code = 05953-7] Goal Plan of Care Note [code = 22442-5] Goal Plan of Care Note [code = 59285-9] Goal Plan of Care Note [code = 68385-6] Goal Plan of Care Note [code = 43240-6] Goal Plan of Care Note [code = 03442-3] Goal Plan of Care Note [code = 40920-5] Goal Plan of Care Note [code = 62116-6] Goal Plan of Care Note [code = 31285-9] Goal Plan of Care Note [code = 20306-9] Goal Plan of Care Note [code = 47191-1] Goal Plan of Care Note [code = 24473-5] Goal Plan of Care Note [code = 35951-2] Goal Plan of Care Note [code = 82688-7] Goal Plan of Care Note [code = 98698-1] Goal Plan of Care Note [code = 74036-0] Goal Plan of Care Note [code = 00081-4] Goal Plan of Care Note [code = 74942-0] Goal Plan of Care Note [code = 22722-7] Goal Plan of Care Note [code = 65926-3] Goal Plan of Care Note [code = 71618-8] Goal Plan of Care Note [code = 54362-3] Goal Plan of Care Note [code = 89577-5] Goal Plan of Care Note [code = 56778-4] Goal Plan of Care Note [code = 75144-3] Goal Plan of Care Note [code = 14073-8] Goal Plan of Care Note [code = 26232-9] Goal Plan of Care Note [code = 08397-4] Goal Plan of Care Note [code = 28571-3] Goal Plan of Care Note [code = 74890-1] Goal Plan of Care Note [code = 68411-8] Goal Plan of Care Note [code = 38822-7] Goal Plan of Care Note [code = 35475-8] Goal Plan of Care Note [code = 87717-8] Goal Plan of Care Note [code = 51247-5] Goal Plan of Care Note [code = 11734-1] Goal Plan of Care Note [code = 87301-4] Goal Plan of Care Note [code = 23402-3] Goal Plan of Care Note [code = 95947-7] Goal Plan of Care Note [code = 49497-1] Goal Plan of Care Note [code = 87779-5] Goal Plan of Care Note [code = 38274-8] Goal Plan of Care Note [code = 33499-8] Goal Plan of Care Note [code = 55240-2] Goal Plan of Care Note [code = 54943-8] Goal Plan of Care Note [code = 69514-5] Goal Plan of Care Note [code = 57135-0] Goal Plan of Care Note [code = 67723-4] Goal Plan of Care Note [code = 35235-9] Goal Plan of Care Note [code = 49730-0] Goal Plan of Care Note [code = 98798-3] Goal Plan of Care Note [code = 68321-9] Goal Plan of Care Note [code = 27581-6] Goal Plan of Care Note [code = 52048-8] Goal Plan of Care Note [code = 86946-2] Goal Plan of Care Note [code = 57105-8] Goal Plan of Care Note [code = 46271-0] Goal Plan of Care Note [code = 88251-7] Goal Plan of Care Note [code = 07275-8] Goal Plan of Care Note [code = 85555-6] Goal Plan of Care Note [code = 08673-8] Goal Plan of Care Note [code = 65979-6] Goal Plan of Care Note [code = 48285-3] Goal Plan of Care Note [code = 17044-7] Goal Plan of Care Note [code = 67965-3] Goal Plan of Care Note [code = 89754-4] Goal Plan of Care Note [code = 57641-5] Goal Plan of Care Note [code = 69224-0] Goal Plan of Care Note [code = 85237-5] Goal Plan of Care Note [code = 43061-9] Goal Plan of Care Note [code = 32374-4] Goal Plan of Care Note [code = 47078-6] Goal Plan of Care Note [code = 86910-5] Goal Plan of Care Note [code = 55010-2] Goal Plan of Care Note [code = 87391-8] Goal Plan of Care Note [code = 52495-0] Goal Plan of Care Note [code = 57839-1] Goal Plan of Care Note [code = 77738-4] Goal Plan of Care Note [code = 52358-1] Goal Plan of Care Note [code = 12888-6] Goal Plan of Care Note [code = 95879-8] Goal Plan of Care Note [code = 26207-5] Goal Plan of Care Note [code = 94191-4] Goal Plan of Care Note [code = 09802-6] Goal Plan of Care Note [code = 69848-7] Goal Plan of Care Note [code = 60298-4] Goal Plan of Care Note [code = 75657-9] Goal Plan of Care Note [code = 02096-0] Goal Plan of Care Note [code = 90920-7] Goal Plan of Care Note [code = 23796-9] Goal Plan of Care Note [code = 74298-7] Goal Plan of Care Note [code = 47303-0] Goal Plan of Care Note [code = 95653-9] Goal Plan of Care Note [code = 59125-4] Goal Plan of Care Note [code = 77013-8] Goal Plan of Care Note [code = 33086-0] Goal Plan of Care Note [code = 14234-8] Goal Plan of Care Note [code = 24735-3] Goal Plan of Care Note [code = 13924-7] Goal Plan of Care Note [code = 23436-9] Goal Plan of Care Note [code = 80737-2] Goal Plan of Care Note [code = 52491-0] Goal Plan of Care Note [code = 29748-4] Goal Plan of Care Note [code = 54177-2] Goal Plan of Care Note [code = 87452-5] Goal Plan of Care Note [code = 02512-8] Goal Plan of Care Note [code = 26626-1] Goal Plan of Care Note [code = 94742-8] Goal Plan of Care Note [code = 26717-9] Goal Plan of Care Note [code = 64838-8] Goal Plan of Care Note [code = 57176-0] Goal Plan of Care Note [code = 27228-4] Goal Plan of Care Note [code = 59802-4] Goal Plan of Care Note [code = 54123-4] Goal Plan of Care Note [code = 00694-8] Goal Plan of Care Note [code = 67062-4] Goal Plan of Care Note [code = 65782-5] Goal Plan of Care Note [code = 35840-0] Goal Plan of Care Note [code = 90373-8] Goal Plan of Care Note [code = 74674-3] Goal Plan of Care Note [code = 69262-8] Goal Plan of Care Note [code = 50442-8] Goal Plan of Care Note [code = 64541-9] Goal Plan of Care Note [code = 31300-7] Goal Plan of Care Note [code = 83575-9] Goal Plan of Care Note [code = 67148-2] Goal Plan of Care Note [code = 52778-1] Goal Plan of Care Note [code = 15644-8] Goal Plan of Care Note [code = 70059-7] Goal Plan of Care Note [code = 29218-1] Goal Plan of Care Note [code = 29581-5] Goal Plan of Care Note [code = 47496-6] Goal Plan of Care Note [code = 20624-6] Goal Plan of Care Note [code = 57099-4] Goal Plan of Care Note [code = 22224-8] Goal Plan of Care Note [code = 86213-8] Goal Plan of Care Note [code = 87978-3] Goal Plan of Care Note [code = 69358-4] Goal Plan of Care Note [code = 47567-2] Goal Plan of Care Note [code = 74948-8] Goal Plan of Care Note [code = 09667-4] Goal Plan of Care Note [code = 01867-6] Goal Plan of Care Note [code = 05469-3] Goal Plan of Care Note [code = 27754-0] Goal Plan of Care Note [code = 25715-9] Goal Plan of Care Note [code = 14667-7] Goal Plan of Care Note [code = 65973-9] Goal Plan of Care Note [code = 34291-2] Goal Plan of Care Note [code = 64520-8] Goal Plan of Care Note [code = 23089-1] Encounters Start End Encounter Admission Attending Care Care Encounter Source Date/Time Date/Time Type Type Clinicians Facility Department ID 2021-06-01 Outpatient [facility] [id number] [place] 01:36:29 [id number] [facility] 2022-11-25 2022-11-25 Outpatient SFA SFA [id number] 023 Cristian 14:11:37 14:11:37 0919 F Jerman 2022-05-24 2022-05-24 Outpatient SFA SFA [id number] 023 Cristian 10:36:59 10:36:59 0318 F Jerman 2022-02-11 2022-02-11 Outpatient SFA SFA [id number] 022 Cristian 09:04:48 09:04:48 1206 F Jerman 2022-02-10 2022-02-10 Outpatient SFA SFA [id number] 022 Cristian 09:29:34 09:29:34 1205 F Jerman 2022-02-10 2022-02-10 Outpatient [id number]- [id number] 0b 7d98b3-6 00:00:00 00:00:00 Visit 4089-4cab 089-4cab-9 -8qn4-r2h bf5-q3o248 070kqsl75 bafa93 2022-01-10 2022-01-10 Outpatient SFA SFA [id number] 022 Cristian 09:16:14 09:16:14 1104 F Jerman 2022-01-10 2022-01-10 Outpatient z9leviw4- [id number] f2 accaa6-a 00:00:00 00:00:00 Visit aca9-4c83 ca9-4c83-a -e3im-vl5 7eb-bc13f3 3v9s977n1 f032f9 2021-12-19 2021-12-19 Outpatient SFA SFA 11101-7 022 Cristian 16:11:31 16:11:31 1013 F Jerman 2021-12-19 2021-12-19 Outpatient [id number] 466cae-a 00:00:00 00:00:00 Visit i022-565b 770-441f-a -adae-62b amelia-62bace zajjk67jf fd81af 2021-09-17 2021-09-17 Outpatient zty4uizp- [id number] aa q7nclg-9 00:00:00 00:00:00 Visit 935a-4f50 35a-4f50-b -a77x-k3d 77d-c2ba85 g181706h2 1264a6 2020-08-03 2020-08-03 Outpatient MATT VÁSQUEZ [facility] [id number] [facility] 10:00:00 10:00:00 MATT SIMPSON [facility] 2020-07-25 2020-07-25 Orders Doctor ABE [id number] 00:00:00 00:00:00 Only Unassigned, BK 350.1.13.10 Grace [facility] 4.2.7.2.686 [id number] 2019-09-26 2019-09-26 Outpatient Bertin KRISHNAMURTHY [facility] [id number] [facility] 16:00:00 16:00:00 WALLY [facility] 2018-10-21 2018-10-21 Telephone Gramm, [facility] [id number] 00:00:00 00:00:00 Natacha Nguyen 350.1.13.10 Ade 4.2.7.2.686 [place] [id number] formerly [facility] 204 [facility] Results Test Description Test Time Test Comments Results Result Comments Source TSH, THIRD GENERATION 2022-05-26 02:57:49 Test Item Value Reference Range Interpretation Comme nts TSH, THIRD GENERATION (test code = 2821) 6.350 UIU/ML 0.400-4.100 H LIPID [id number] 01:09:34 Test Item Value Reference Range Interpretation [...] /CalcLDL-C RISK RATIO LDL/HDL 2.73 RATIO <3.22 [facility] has important (test code = 2238) pathology staff changes effecti ve 05/07/2022. New pathology staff will provide uninter rupted, excellent patie nt care and clinical consultation. S ee URL: [email or web address] [email or web address] S OTHERWISE INDIC ATED, ALL TESTING PER FORMED AT [facility], [facility]. [address] [place] [id number] [place] [address] EMMA DIRECTOR: Andrew WHITLEY CONNOR NUMBER [id number] CAP ACCREDITATION N O. [id number] HEMOGLOBIN [id number] 03:17:24 Test Item Value Reference Range Interpretation Comments HEMOGLOBIN A1c (test 6.4 % 4.2-5.6 H AMERIC AN DIABETES code = 18441) ASSOCIATION IDELINES FOR HGB A1C: PREDIABETES/INC REASED [...] TESTING OR LABORATORY C ONSULTATION. TSH, THIRD [id number] 05:15:49 Test Item Value Reference Range Interpretation Comments TSH, THIRD GENERATION (test code 2.080 UIU/ML 0.400-4.100 = 2821) HEMOGLOBIN [id number] 03:46:00 Test Item Value Reference Range Interpretation Comments HEMOGLOBIN A1c (test 6.6 % 4.2-5.6 H AMERIC AN DIABETES code = 63484) ASSOCIATION IDELINES FOR HGB A1C: PREDIABETES/INC REASED [...] PER FORMED ATCLINICAL PATH [facility], [facility]. [address] [address] LABORATORY DIRE CTOR: DIANA RUSS M.D. CLIA NUMBER [id number] [place]. [id number] LIPID [id number] 02:59:52 Test Item Value Reference Range Interpretation [...] MOREINFORMATION , SEE CLIENT ANNOUNCE MENT AT [email or web address] RISK RATIO LDL/HDL 4.02 RATIO <3.22 H (test code = 2238) [id number] 00:00:00 Test Item Value Reference Range Interpretation Comments TSH, THIRD GENERATION (test code 2.080 UIU/ML = 2821) [id number] 00:00:00 Test Item Value Reference Range Interpretation Comments TSH, THIRD GENERATION (test code 2.080 UIU/ML = 2821) [id number] 00:00:00 Test Item Value Reference Range Interpretation Comments TSH, THIRD GENERATION (test code 2.080 UIU/ML = 2821) LIPID [id number] 00:00:00 Test Item Value Reference Range Interpretation Comments CHOLESTEROL (test code = 2210) 292 MG/DL TRIGLYCERIDES (test code = 2232) 184 MG/DL HDL CHOLESTEROL (test code = 2220) 51 MG/DL CALC LDL CHOL (test code = 2237) 205 MG/DL RISK RATIO LDL/HDL (test code = 4.02 RATIO 2238) LIPID [id number] 00:00:00 Test Item Value Reference Range Interpretation Comments CHOLESTEROL (test code = 2210) 292 MG/DL TRIGLYCERIDES (test code = 2232) 184 MG/DL HDL CHOLESTEROL (test code = 2220) 51 MG/DL CALC LDL CHOL (test code = 2237) 205 MG/DL RISK RATIO LDL/HDL (test code = 4.02 RATIO 2238) HEMOGLOBIN [id number] 00:00:00 Test Item Value Reference Range Interpretation Comments HEMOGLOBIN A1c (test code = 23027) 6.6 % HEMOGLOBIN [id number] 00:00:00 Test Item Value Reference Range Interpretation Comments HEMOGLOBIN A1c (test code = 97403) 6.6 % HEMOGLOBIN [id number] 00:00:00 Test Item Value Reference Range Interpretation Comments HEMOGLOBIN A1c (test code = 58119) 6.6 % [id number] 00:00:00 Test Item Value Reference Range Interpretation Comments TSH, THIRD GENERATION (test code 2.080 UIU/ML = 2821) [id number] 00:00:00 Test Item Value Reference Range Interpretation Comments TSH, THIRD GENERATION (test code 2.080 UIU/ML = 2821) [id number] 00:00:00 Test Item Value Reference Range Interpretation Comments TSH, THIRD GENERATION (test code 2.080 UIU/ML = 2821) LIPID [id number] 00:00:00 Test Item Value Reference Range Interpretation Comments CHOLESTEROL (test code = 2210) 292 MG/DL TRIGLYCERIDES (test code = 2232) 184 MG/DL HDL CHOLESTEROL (test code = 2220) 51 MG/DL CALC LDL CHOL (test code = 2237) 205 MG/DL RISK RATIO LDL/HDL (test code = 4.02 RATIO 2238) LIPID [id number] 00:00:00 Test Item Value Reference Range Interpretation Comments CHOLESTEROL (test code = 2210) 292 MG/DL TRIGLYCERIDES (test code = 2232) 184 MG/DL HDL CHOLESTEROL (test code = 2220) 51 MG/DL CALC LDL CHOL (test code = 2237) 205 MG/DL RISK RATIO LDL/HDL (test code = 4.02 RATIO 2238) HEMOGLOBIN [id number] 00:00:00 Test Item Value Reference Range Interpretation Comments HEMOGLOBIN A1c (test code = 17198) 6.6 % HEMOGLOBIN [id number] 00:00:00 Test Item Value Reference Range Interpretation Comments HEMOGLOBIN A1c (test code = 50171) 6.6 % HEMOGLOBIN [id number] 00:00:00 Test Item Value Reference Range Interpretation Comments HEMOGLOBIN A1c (test code = 61416) 6.6 % [id number] 00:00:00 Test Item Value Reference Range Interpretation Comments TSH, THIRD GENERATION (test code 2.080 UIU/ML = 2821) [id number] 00:00:00 Test Item Value Reference Range Interpretation Comments TSH, THIRD GENERATION (test code 2.080 UIU/ML = 2821) LIPID [id number] 00:00:00 Test Item Value Reference Range Interpretation Comments CHOLESTEROL (test code = 2210) 292 MG/DL TRIGLYCERIDES (test code = 2232) 184 MG/DL HDL CHOLESTEROL (test code = 2220) 51 MG/DL CALC LDL CHOL (test code = 2237) 205 MG/DL RISK RATIO LDL/HDL (test code = 4.02 RATIO 2238) HEMOGLOBIN [id number] 00:00:00 Test Item Value Reference Range Interpretation Comments HEMOGLOBIN A1c (test code = 81602) 6.6 % HEMOGLOBIN [id number] 00:00:00 Test Item Value Reference Range Interpretation Comments HEMOGLOBIN A1c (test code = 49033) 6.6 % [id number] 00:00:00 Test Item Value Reference Range Interpretation Comments TSH, THIRD GENERATION (test code 2.080 UIU/ML = 2821) [id number] 00:00:00 Test Item Value Reference Range Interpretation Comments TSH, THIRD GENERATION (test code 2.080 UIU/ML = 2821) [id number] 00:00:00 Test Item Value Reference Range Interpretation Comments TSH, THIRD GENERATION (test code 2.080 UIU/ML = 2821) LIPID [id number] 00:00:00 Test Item Value Reference Range Interpretation Comments CHOLESTEROL (test code = 2210) 292 MG/DL TRIGLYCERIDES (test code = 2232) 184 MG/DL HDL CHOLESTEROL (test code = 2220) 51 MG/DL CALC LDL CHOL (test code = 2237) 205 MG/DL RISK RATIO LDL/HDL (test code = 4.02 RATIO 2238) LIPID [id number] 00:00:00 Test Item Value Reference Range Interpretation Comments CHOLESTEROL (test code = 2210) 292 MG/DL TRIGLYCERIDES (test code = 2232) 184 MG/DL HDL CHOLESTEROL (test code = 2220) 51 MG/DL CALC LDL CHOL (test code = 2237) 205 MG/DL RISK RATIO LDL/HDL (test code = 4.02 RATIO 2238) HEMOGLOBIN [id number] 00:00:00 Test Item Value Reference Range Interpretation Comments HEMOGLOBIN A1c (test code = 53707) 6.6 % HEMOGLOBIN [id number] 00:00:00 Test Item Value Reference Range Interpretation Comments HEMOGLOBIN A1c (test code = 27623) 6.6 % HEMOGLOBIN [id number] 00:00:00 Test Item Value Reference Range Interpretation Comments HEMOGLOBIN A1c (test code = 01966) 6.6 % HEMOGLOBIN [id number] 00:00:00 Test Item Value Reference Range Interpretation Comments HEMOGLOBIN A1c (test code = 16289) 6.8 % HEMOGLOBIN [id number] 00:00:00 Test Item Value Reference Range Interpretation Comments HEMOGLOBIN A1c (test code = 18715) 6.8 % HEMOGLOBIN [id number] 00:00:00 Test Item Value Reference Range Interpretation Comments HEMOGLOBIN A1c (test code = 77001) 6.8 % LIPID [id number] 00:00:00 Test Item Value Reference Range Interpretation Comments CHOLESTEROL (test code = 2210) 303 MG/DL TRIGLYCERIDES (test code = 2232) 191 MG/DL HDL CHOLESTEROL (test code = 2220) 61 MG/DL CALC LDL CHOL (test code = 2237) 205 MG/DL RISK RATIO LDL/HDL (test code = 3.36 RATIO 2238) LIPID [id number] 00:00:00 Test Item Value Reference Range Interpretation Comments CHOLESTEROL (test code = 2210) 303 MG/DL TRIGLYCERIDES (test code = 2232) 191 MG/DL HDL CHOLESTEROL (test code = 2220) 61 MG/DL CALC LDL CHOL (test code = 2237) 205 MG/DL RISK RATIO LDL/HDL (test code = 3.36 RATIO 2238) [id number] 00:00:00 Test Item Value Reference Range Interpretation Comments TSH, THIRD GENERATION (test code 0.769 UIU/ML = 2821) [id number] 00:00:00 Test Item Value Reference Range Interpretation Comments TSH, THIRD GENERATION (test code 0.769 UIU/ML = 2821) [id number] 00:00:00 Test Item Value Reference Range Interpretation Comments TSH, THIRD GENERATION (test code 0.769 UIU/ML = 2821) COMPREHENSIVE METABOLIC [id number] 00:00:00 Test Item Value Reference Range Interpretation Comments GLUCOSE (test code = 2217) 131 MG/DL BUN (test code = 2208) 13 MG/DL CREATININE (test code = 2214) 0.65 MG/DL eGFR AMER. (test code 113 ML/MIN/1.73 = 77442) eGFR NON- AMER. (test 97 ML/MIN/1.73 code = 55479) CALC BUN/CREAT (test code = 20 RATIO [...] code = 2219) 23 U/L COMPREHENSIVE METABOLIC [id number] 00:00:00 Test Item Value Reference Range Interpretation Comments GLUCOSE (test code = 2217) 131 MG/DL BUN (test code = 2208) 13 MG/DL CREATININE (test code = 2214) 0.65 MG/DL eGFR AMER. (test code 113 ML/MIN/1.73 = 92126) eGFR NON- AMER. (test 97 ML/MIN/1.73 code = 54198) CALC BUN/CREAT (test code = 20 RATIO [...] (test code = 2219) 23 U/L HEMOGLOBIN [id number] 00:00:00 Test Item Value Reference Range Interpretation Comments HEMOGLOBIN A1c (test code = 41630) 6.8 % HEMOGLOBIN [id number] 00:00:00 Test Item Value Reference Range Interpretation Comments HEMOGLOBIN A1c (test code = 82863) 6.8 % HEMOGLOBIN [id number] 00:00:00 Test Item Value Reference Range Interpretation Comments HEMOGLOBIN A1c (test code = 43728) 6.8 % LIPID [id number] 00:00:00 Test Item Value Reference Range Interpretation Comments CHOLESTEROL (test code = 2210) 303 MG/DL TRIGLYCERIDES (test code = 2232) 191 MG/DL HDL CHOLESTEROL (test code = 2220) 61 MG/DL CALC LDL CHOL (test code = 2237) 205 MG/DL RISK RATIO LDL/HDL (test code = 3.36 RATIO 2238) LIPID [id number] 00:00:00 Test Item Value Reference Range Interpretation Comments CHOLESTEROL (test code = 2210) 303 MG/DL TRIGLYCERIDES (test code = 2232) 191 MG/DL HDL CHOLESTEROL (test code = 2220) 61 MG/DL CALC LDL CHOL (test code = 2237) 205 MG/DL RISK RATIO LDL/HDL (test code = 3.36 RATIO 2238) [id number] 00:00:00 Test Item Value Reference Range Interpretation Comments TSH, THIRD GENERATION (test code 0.769 UIU/ML = 2821) [id number] 00:00:00 Test Item Value Reference Range Interpretation Comments TSH, THIRD GENERATION (test code 0.769 UIU/ML = 2821) [id number] 00:00:00 Test Item Value Reference Range Interpretation Comments TSH, THIRD GENERATION (test code 0.769 UIU/ML = 2821) COMPREHENSIVE METABOLIC [id number] 00:00:00 Test Item Value Reference Range Interpretation Comments GLUCOSE (test code = 2217) 131 MG/DL BUN (test code = 2208) 13 MG/DL CREATININE (test code = 2214) 0.65 MG/DL eGFR AMER. (test code 113 ML/MIN/1.73 = 19459) eGFR NON- AMER. (test 97 ML/MIN/1.73 code = 43483) CALC BUN/CREAT (test code = 20 RATIO [...] code = 2219) 23 U/L COMPREHENSIVE METABOLIC [id number] 00:00:00 Test Item Value Reference Range Interpretation Comments GLUCOSE (test code = 2217) 131 MG/DL BUN (test code = 2208) 13 MG/DL CREATININE (test code = 2214) 0.65 MG/DL eGFR AMER. (test code 113 ML/MIN/1.73 = 83844) eGFR NON- AMER. (test 97 ML/MIN/1.73 code = 40724) CALC BUN/CREAT (test code = 20 RATIO [...] (test code = 2219) 23 U/L HEMOGLOBIN [id number] 00:00:00 Test Item Value Reference Range Interpretation Comments HEMOGLOBIN A1c (test code = 38557) 6.8 % HEMOGLOBIN [id number] 00:00:00 Test Item Value Reference Range Interpretation Comments HEMOGLOBIN A1c (test code = 35744) 6.8 % LIPID [id number] 00:00:00 Test Item Value Reference Range Interpretation Comments CHOLESTEROL (test code = 2210) 303 MG/DL TRIGLYCERIDES (test code = 2232) 191 MG/DL HDL CHOLESTEROL (test code = 2220) 61 MG/DL CALC LDL CHOL (test code = 2237) 205 MG/DL RISK RATIO LDL/HDL (test code = 3.36 RATIO 2238) [id number] 00:00:00 Test Item Value Reference Range Interpretation Comments TSH, THIRD GENERATION (test code 0.769 UIU/ML = 2821) [id number] 00:00:00 Test Item Value Reference Range Interpretation Comments TSH, THIRD GENERATION (test code 0.769 UIU/ML = 2821) COMPREHENSIVE METABOLIC [id number] 00:00:00 Test Item Value Reference Range Interpretation Comments GLUCOSE (test code = 2217) 131 MG/DL BUN (test code = 2208) 13 MG/DL CREATININE (test code = 2214) 0.65 MG/DL eGFR AMER. (test code 113 ML/MIN/1.73 = 60833) eGFR NON- AMER. (test 97 ML/MIN/1.73 code = 90187) CALC BUN/CREAT (test code = 20 RATIO [...] (test code = 2219) 23 U/L HEMOGLOBIN [id number] 00:00:00 Test Item Value Reference Range Interpretation Comments HEMOGLOBIN A1c (test code = 94886) 6.8 % HEMOGLOBIN [id number] 00:00:00 Test Item Value Reference Range Interpretation Comments HEMOGLOBIN A1c (test code = 66541) 6.8 % HEMOGLOBIN [id number] 00:00:00 Test Item Value Reference Range Interpretation Comments HEMOGLOBIN A1c (test code = 08735) 6.8 % LIPID [id number] 00:00:00 Test Item Value Reference Range Interpretation Comments CHOLESTEROL (test code = 2210) 303 MG/DL TRIGLYCERIDES (test code = 2232) 191 MG/DL HDL CHOLESTEROL (test code = 2220) 61 MG/DL CALC LDL CHOL (test code = 2237) 205 MG/DL RISK RATIO LDL/HDL (test code = 3.36 RATIO 2238) LIPID [id number] 00:00:00 Test Item Value Reference Range Interpretation Comments CHOLESTEROL (test code = 2210) 303 MG/DL TRIGLYCERIDES (test code = 2232) 191 MG/DL HDL CHOLESTEROL (test code = 2220) 61 MG/DL CALC LDL CHOL (test code = 2237) 205 MG/DL RISK RATIO LDL/HDL (test code = 3.36 RATIO 2238) [id number] 00:00:00 Test Item Value Reference Range Interpretation Comments TSH, THIRD GENERATION (test code 0.769 UIU/ML = 2821) [id number] 00:00:00 Test Item Value Reference Range Interpretation Comments TSH, THIRD GENERATION (test code 0.769 UIU/ML = 2821) [id number] 00:00:00 Test Item Value Reference Range Interpretation Comments TSH, THIRD GENERATION (test code 0.769 UIU/ML = 2821) COMPREHENSIVE METABOLIC [id number] 00:00:00 Test Item Value Reference Range Interpretation Comments GLUCOSE (test code = 2217) 131 MG/DL BUN (test code = 2208) 13 MG/DL CREATININE (test code = 2214) 0.65 MG/DL eGFR AMER. (test code 113 ML/MIN/1.73 = 32052) eGFR NON- AMER. (test 97 ML/MIN/1.73 code = 17751) CALC BUN/CREAT (test code = 20 RATIO [...] code = 2219) 23 U/L COMPREHENSIVE METABOLIC [id number] 00:00:00 Test Item Value Reference Range Interpretation Comments GLUCOSE (test code = 2217) 131 MG/DL BUN (test code = 2208) 13 MG/DL CREATININE (test code = 2214) 0.65 MG/DL eGFR AMER. (test code 113 ML/MIN/1.73 = 62234) eGFR NON- AMER. (test 97 ML/MIN/1.73 code = 62218) CALC BUN/CREAT (test code = 20 RATIO [...] ALT (test code = 2219) 23 U/L THYROID II PROFILE (T3U, T4, T7, TSH)[id number] 00:00:00 Test Item Value Reference Range Interpretation Comments T-UPTAKE (test code = 281) 30.2 % THYROX. BIND. CAPAC. (test code 1.1 = 08268) T4 (THYROXINE) (test code = 4.3 UG/DL 281) CORRECTED T4 (FTI) (test code = 3.9 UG/DL 2820) TSH, THIRD GENERATION (test 18.900 UIU/ML code = 2821) HEMOGLOBIN [id number] 00:00:00 Test Item Value Reference Range Interpretation Comments HEMOGLOBIN A1c (test code = 30846) 6.6 % HEMOGLOBIN [id number] 00:00:00 Test Item Value Reference Range Interpretation Comments HEMOGLOBIN A1c (test code = 68646) 6.6 % HEMOGLOBIN [id number] 00:00:00 Test Item Value Reference Range Interpretation Comments HEMOGLOBIN A1c (test code = 13148) 6.6 % LIPID [id number] 00:00:00 Test Item Value Reference Range Interpretation Comments CHOLESTEROL (test code = 2210) 261 MG/DL TRIGLYCERIDES (test code = 2232) 159 MG/DL HDL CHOLESTEROL (test code = 2220) 82 MG/DL CALC LDL CHOL (test code = 2237) 150 MG/DL RISK RATIO LDL/HDL (test code = 1.83 RATIO 2238) LIPID [id number] 00:00:00 Test Item Value Reference Range Interpretation Comments CHOLESTEROL (test code = 2210) 261 MG/DL TRIGLYCERIDES (test code = 2232) 159 MG/DL HDL CHOLESTEROL (test code = 2220) 82 MG/DL CALC LDL CHOL (test code = 2237) 150 MG/DL RISK RATIO LDL/HDL (test code = 1.83 RATIO 2238) COMPREHENSIVE METABOLIC [id number] 00:00:00 Test Item Value Reference Range Interpretation Comments GLUCOSE (test code = 2217) 144 MG/DL BUN (test code = 2208) 15 MG/DL CREATININE (test code = 2214) 0.85 MG/DL eGFR AMER. (test code 87 ML/MIN/1.73 = 62862) eGFR NON- AMER. (test 75 ML/MIN/1.73 code = 32882) CALC BUN/CREAT (test code = 18 RATIO [...] code = 2219) 50 U/L COMPREHENSIVE METABOLIC [id number] 00:00:00 Test Item Value Reference Range Interpretation Comments GLUCOSE (test code = 2217) 144 MG/DL BUN (test code = 2208) 15 MG/DL CREATININE (test code = 2214) 0.85 MG/DL eGFR AMER. (test code 87 ML/MIN/1.73 = 62347) eGFR NON- AMER. (test 75 ML/MIN/1.73 code = 16490) CALC BUN/CREAT (test code = 18 RATIO [...] THYROX. BIND. CAPAC. (test code 1.1 = 98420) T4 (THYROXINE) (test code = 4.3 UG/DL 2819) CORRECTED T4 (FTI) (test code = 3.9 UG/DL 2820) TSH, THIRD GENERATION (test 18.900 UIU/ML code = 2821) THYROID II PROFILE (T3U, T4, T7, TSH)[id number] 00:00:00 Test Item Value Reference Range Interpretation Comments T-UPTAKE (test code = 7) 30.2 % THYROX. BIND. CAPAC. (test code 1.1 = 18949) T4 (THYROXINE) (test code = 4.3 UG/DL 2819) CORRECTED T4 (FTI) (test code = 3.9 UG/DL 2820) TSH, THIRD GENERATION (test 18.900 UIU/ML code = 2821) HEMOGLOBIN [id number] 00:00:00 Test Item Value Reference Range Interpretation Comments HEMOGLOBIN A1c (test code = 46367) 6.6 % HEMOGLOBIN [id number] 00:00:00 Test Item Value Reference Range Interpretation Comments HEMOGLOBIN A1c (test code = 68762) 6.6 % HEMOGLOBIN [id number] 00:00:00 Test Item Value Reference Range Interpretation Comments HEMOGLOBIN A1c (test code = 52872) 6.6 % LIPID [id number] 00:00:00 Test Item Value Reference Range Interpretation Comments CHOLESTEROL (test code = 2210) 261 MG/DL TRIGLYCERIDES (test code = 2232) 159 MG/DL HDL CHOLESTEROL (test code = 2220) 82 MG/DL CALC LDL CHOL (test code = 2237) 150 MG/DL RISK RATIO LDL/HDL (test code = 1.83 RATIO 2238) LIPID [id number] 00:00:00 Test Item Value Reference Range Interpretation Comments CHOLESTEROL (test code = 2210) 261 MG/DL TRIGLYCERIDES (test code = 2232) 159 MG/DL HDL CHOLESTEROL (test code = 2220) 82 MG/DL CALC LDL CHOL (test code = 2237) 150 MG/DL RISK RATIO LDL/HDL (test code = 1.83 RATIO 2238) COMPREHENSIVE METABOLIC [id number] 00:00:00 Test Item Value Reference Range Interpretation Comments GLUCOSE (test code = 2217) 144 MG/DL BUN (test code = 2208) 15 MG/DL CREATININE (test code = 2214) 0.85 MG/DL eGFR AMER. (test code 87 ML/MIN/1.73 = 04102) eGFR NON- AMER. (test 75 ML/MIN/1.73 code = 30107) CALC BUN/CREAT (test code = 18 RATIO [...] code = 2219) 50 U/L COMPREHENSIVE METABOLIC [id number] 00:00:00 Test Item Value Reference Range Interpretation Comments GLUCOSE (test code = 2217) 144 MG/DL BUN (test code = 2208) 15 MG/DL CREATININE (test code = 2214) 0.85 MG/DL eGFR AMER. (test code 87 ML/MIN/1.73 = 90266) eGFR NON- AMER. (test 75 ML/MIN/1.73 code = 92889) CALC BUN/CREAT (test code = 18 RATIO [...] THYROX. BIND. CAPAC. (test code 1.1 = 14970) T4 (THYROXINE) (test code = 4.3 UG/DL 2819) CORRECTED T4 (FTI) (test code = 3.9 UG/DL 2820) TSH, THIRD GENERATION (test 18.900 UIU/ML code = 2821) THYROID II PROFILE (T3U, T4, T7, TSH)[id number] 00:00:00 Test Item Value Reference Range Interpretation Comments T-UPTAKE (test code = 2817) 30.2 % THYROX. BIND. CAPAC. (test code 1.1 = 86032) T4 (THYROXINE) (test code = 4.3 UG/DL 2819) CORRECTED T4 (FTI) (test code = 3.9 UG/DL 2820) TSH, THIRD GENERATION (test 18.900 UIU/ML code = 2821) HEMOGLOBIN [id number] 00:00:00 Test Item Value Reference Range Interpretation Comments HEMOGLOBIN A1c (test code = 73033) 6.6 % HEMOGLOBIN [id number] 00:00:00 Test Item Value Reference Range Interpretation Comments HEMOGLOBIN A1c (test code = 92794) 6.6 % LIPID [id number] 00:00:00 Test Item Value Reference Range Interpretation Comments CHOLESTEROL (test code = 2210) 261 MG/DL TRIGLYCERIDES (test code = 2232) 159 MG/DL HDL CHOLESTEROL (test code = 2220) 82 MG/DL CALC LDL CHOL (test code = 2237) 150 MG/DL RISK RATIO LDL/HDL (test code = 1.83 RATIO 2238) COMPREHENSIVE METABOLIC [id number] 00:00:00 Test Item Value Reference Range Interpretation Comments GLUCOSE (test code = 2217) 144 MG/DL BUN (test code = 2208) 15 MG/DL CREATININE (test code = 2214) 0.85 MG/DL eGFR AMER. (test code 87 ML/MIN/1.73 = 35826) eGFR NON- AMER. (test 75 ML/MIN/1.73 code = 02966) CALC BUN/CREAT (test code = 18 RATIO [...] THYROX. BIND. CAPAC. (test code 1.1 = 44318) T4 (THYROXINE) (test code = 4.3 UG/DL 2819) CORRECTED T4 (FTI) (test code = 3.9 UG/DL 2820) TSH, THIRD GENERATION (test 18.900 UIU/ML code = 2821) HEMOGLOBIN [id number] 00:00:00 Test Item Value Reference Range Interpretation Comments HEMOGLOBIN A1c (test code = 92222) 6.6 % HEMOGLOBIN [id number] 00:00:00 Test Item Value Reference Range Interpretation Comments HEMOGLOBIN A1c (test code = 78062) 6.6 % HEMOGLOBIN [id number] 00:00:00 Test Item Value Reference Range Interpretation Comments HEMOGLOBIN A1c (test code = 65594) 6.6 % LIPID [id number] 00:00:00 Test Item Value Reference Range Interpretation Comments CHOLESTEROL (test code = 2210) 261 MG/DL TRIGLYCERIDES (test code = 2232) 159 MG/DL HDL CHOLESTEROL (test code = 2220) 82 MG/DL CALC LDL CHOL (test code = 2237) 150 MG/DL RISK RATIO LDL/HDL (test code = 1.83 RATIO 2238) LIPID [id number] 00:00:00 Test Item Value Reference Range Interpretation Comments CHOLESTEROL (test code = 2210) 261 MG/DL TRIGLYCERIDES (test code = 2232) 159 MG/DL HDL CHOLESTEROL (test code = 2220) 82 MG/DL CALC LDL CHOL (test code = 2237) 150 MG/DL RISK RATIO LDL/HDL (test code = 1.83 RATIO 2238) COMPREHENSIVE METABOLIC [id number] 00:00:00 Test Item Value Reference Range Interpretation Comments GLUCOSE (test code = 2217) 144 MG/DL BUN (test code = 2208) 15 MG/DL CREATININE (test code = 2214) 0.85 MG/DL eGFR AMER. (test code 87 ML/MIN/1.73 = 71105) eGFR NON- AMER. (test 75 ML/MIN/1.73 code = 95172) CALC BUN/CREAT (test code = 18 RATIO [...] code = 2219) 50 U/L COMPREHENSIVE METABOLIC [id number] 00:00:00 Test Item Value Reference Range Interpretation Comments GLUCOSE (test code = 2217) 144 MG/DL BUN (test code = 2208) 15 MG/DL CREATININE (test code = 2214) 0.85 MG/DL eGFR AMER. (test code 87 ML/MIN/1.73 = 08332) eGFR NON- AMER. (test 75 ML/MIN/1.73 code = 55570) CALC BUN/CREAT (test code = 18 RATIO [...] THYROX. BIND. CAPAC. (test code 1.1 = 61960) T4 (THYROXINE) (test code = 4.3 UG/DL 2819) CORRECTED T4 (FTI) (test code = 3.9 UG/DL 2820) TSH, THIRD GENERATION (test 18.900 UIU/ML code = 2821) THYROID II PROFILE (T3U, T4, T7, TSH)2019 00:00:00 Test Item Value Reference Range Interpretation Comments T-UPTAKE (test code = 2817) 33.1 % THYROX. BIND. CAPAC. (test code 1.0 = 09861) T4 (THYROXINE) (test code = 4.7 UG/DL 2819) CORRECTED T4 (FTI) (test code = 4.7 UG/DL 2820) TSH, THIRD GENERATION (test code 0.201 UIU/ML = 2821) HEMOGLOBIN [id number] 00:00:00 Test Item Value Reference Range Interpretation Comments HEMOGLOBIN A1c (test code = 70136) 6.7 % HEMOGLOBIN [id number] 00:00:00 Test Item Value Reference Range Interpretation Comments HEMOGLOBIN A1c (test code = 36906) 6.7 % HEMOGLOBIN [id number] 00:00:00 Test Item Value Reference Range Interpretation Comments HEMOGLOBIN A1c (test code = 43299) 6.7 % LIPID [id number] 00:00:00 Test Item Value Reference Range Interpretation Comments CHOLESTEROL (test code = 2210) 267 MG/DL TRIGLYCERIDES (test code = 2232) 137 MG/DL HDL CHOLESTEROL (test code = 2220) 48 MG/DL CALC LDL CHOL (test code = 2237) 192 MG/DL RISK RATIO LDL/HDL (test code = 4.00 RATIO 2238) LIPID [id number] 00:00:00 Test Item Value Reference Range Interpretation Comments CHOLESTEROL (test code = 2210) 267 MG/DL TRIGLYCERIDES (test code = 2232) 137 MG/DL HDL CHOLESTEROL (test code = 2220) 48 MG/DL CALC LDL CHOL (test code = 2237) 192 MG/DL RISK RATIO LDL/HDL (test code = 4.00 RATIO 2238) COMPREHENSIVE METABOLIC [id number] 00:00:00 Test Item Value Reference Range Interpretation Comments GLUCOSE (test code = 2217) 155 MG/DL BUN (test code = 2208) 14 MG/DL CREATININE (test code = 2214) 0.52 MG/DL eGFR AMER. (test code 122 ML/MIN/1.73 = 89942) eGFR NON- AMER. (test 105 ML/MIN/1.73 code = 12675) CALC BUN/CREAT (test code = 27 RATIO [...] code = 2219) 27 U/L COMPREHENSIVE METABOLIC [id number] 00:00:00 Test Item Value Reference Range Interpretation Comments GLUCOSE (test code = 2217) 155 MG/DL BUN (test code = 2208) 14 MG/DL CREATININE (test code = 2214) 0.52 MG/DL eGFR AMER. (test code 122 ML/MIN/1.73 = 26402) eGFR NON- AMER. (test 105 ML/MIN/1.73 code = 07221) CALC BUN/CREAT (test code = 27 RATIO [...] THYROX. BIND. CAPAC. (test code 1.0 = 30034) T4 (THYROXINE) (test code = 4.7 UG/DL 2819) CORRECTED T4 (FTI) (test code = 4.7 UG/DL 2820) TSH, THIRD GENERATION (test code 0.201 UIU/ML = 2821) THYROID II PROFILE (T3U, T4, T7, TSH)2019 00:00:00 Test Item Value Reference Range Interpretation Comments T-UPTAKE (test code = 2817) 33.1 % THYROX. BIND. CAPAC. (test code 1.0 = 55116) T4 (THYROXINE) (test code = 4.7 UG/DL 2819) CORRECTED T4 (FTI) (test code = 4.7 UG/DL 2820) TSH, THIRD GENERATION (test code 0.201 UIU/ML = 2821) HEMOGLOBIN [id number] 00:00:00 Test Item Value Reference Range Interpretation Comments HEMOGLOBIN A1c (test code = 82655) 6.7 % HEMOGLOBIN [id number] 00:00:00 Test Item Value Reference Range Interpretation Comments HEMOGLOBIN A1c (test code = 41657) 6.7 % HEMOGLOBIN [id number] 00:00:00 Test Item Value Reference Range Interpretation Comments HEMOGLOBIN A1c (test code = 40264) 6.7 % LIPID [id number] 00:00:00 Test Item Value Reference Range Interpretation Comments CHOLESTEROL (test code = 2210) 267 MG/DL TRIGLYCERIDES (test code = 2232) 137 MG/DL HDL CHOLESTEROL (test code = 2220) 48 MG/DL CALC LDL CHOL (test code = 2237) 192 MG/DL RISK RATIO LDL/HDL (test code = 4.00 RATIO 2238) LIPID [id number] 00:00:00 Test Item Value Reference Range Interpretation Comments CHOLESTEROL (test code = 2210) 267 MG/DL TRIGLYCERIDES (test code = 2232) 137 MG/DL HDL CHOLESTEROL (test code = 2220) 48 MG/DL CALC LDL CHOL (test code = 2237) 192 MG/DL RISK RATIO LDL/HDL (test code = 4.00 RATIO 2238) COMPREHENSIVE METABOLIC [id number] 00:00:00 Test Item Value Reference Range Interpretation Comments GLUCOSE (test code = 2217) 155 MG/DL BUN (test code = 2208) 14 MG/DL CREATININE (test code = 2214) 0.52 MG/DL eGFR AMER. (test code 122 ML/MIN/1.73 = 93177) eGFR NON- AMER. (test 105 ML/MIN/1.73 code = 98168) CALC BUN/CREAT (test code = 27 RATIO [...] code = 2219) 27 U/L COMPREHENSIVE METABOLIC [id number] 00:00:00 Test Item Value Reference Range Interpretation Comments GLUCOSE (test code = 2217) 155 MG/DL BUN (test code = 2208) 14 MG/DL CREATININE (test code = 2214) 0.52 MG/DL eGFR AMER. (test code 122 ML/MIN/1.73 = 12901) eGFR NON- AMER. (test 105 ML/MIN/1.73 code = 78754) CALC BUN/CREAT (test code = 27 RATIO [...] THYROX. BIND. CAPAC. (test code 1.0 = 64078) T4 (THYROXINE) (test code = 4.7 UG/DL 2819) CORRECTED T4 (FTI) (test code = 4.7 UG/DL 2820) TSH, THIRD GENERATION (test code 0.201 UIU/ML = 2821) THYROID II PROFILE (T3U, T4, T7, TSH)2019 00:00:00 Test Item Value Reference Range Interpretation Comments T-UPTAKE (test code = 2817) 33.1 % THYROX. BIND. CAPAC. (test code 1.0 = 95197) T4 (THYROXINE) (test code = 4.7 UG/DL 2819) CORRECTED T4 (FTI) (test code = 4.7 UG/DL 2820) TSH, THIRD GENERATION (test code 0.201 UIU/ML = 2821) HEMOGLOBIN [id number] 00:00:00 Test Item Value Reference Range Interpretation Comments HEMOGLOBIN A1c (test code = 28184) 6.7 % HEMOGLOBIN [id number] 00:00:00 Test Item Value Reference Range Interpretation Comments HEMOGLOBIN A1c (test code = 53397) 6.7 % LIPID [id number] 00:00:00 Test Item Value Reference Range Interpretation Comments CHOLESTEROL (test code = 2210) 267 MG/DL TRIGLYCERIDES (test code = 2232) 137 MG/DL HDL CHOLESTEROL (test code = 2220) 48 MG/DL CALC LDL CHOL (test code = 2237) 192 MG/DL RISK RATIO LDL/HDL (test code = 4.00 RATIO 2238) COMPREHENSIVE METABOLIC [id number] 00:00:00 Test Item Value Reference Range Interpretation Comments GLUCOSE (test code = 2217) 155 MG/DL BUN (test code = 2208) 14 MG/DL CREATININE (test code = 2214) 0.52 MG/DL eGFR AMER. (test code 122 ML/MIN/1.73 = 65010) eGFR NON- AMER. (test 105 ML/MIN/1.73 code = 58529) CALC BUN/CREAT (test code = 27 RATIO [...] THYROX. BIND. CAPAC. (test code 1.0 = 47708) T4 (THYROXINE) (test code = 4.7 UG/DL 2819) CORRECTED T4 (FTI) (test code = 4.7 UG/DL 2820) TSH, THIRD GENERATION (test code 0.201 UIU/ML = 2821) HEMOGLOBIN [id number] 00:00:00 Test Item Value Reference Range Interpretation Comments HEMOGLOBIN A1c (test code = 03989) 6.7 % HEMOGLOBIN [id number] 00:00:00 Test Item Value Reference Range Interpretation Comments HEMOGLOBIN A1c (test code = 17084) 6.7 % HEMOGLOBIN [id number] 00:00:00 Test Item Value Reference Range Interpretation Comments HEMOGLOBIN A1c (test code = 82564) 6.7 % LIPID [id number] 00:00:00 Test Item Value Reference Range Interpretation Comments CHOLESTEROL (test code = 2210) 267 MG/DL TRIGLYCERIDES (test code = 2232) 137 MG/DL HDL CHOLESTEROL (test code = 2220) 48 MG/DL CALC LDL CHOL (test code = 2237) 192 MG/DL RISK RATIO LDL/HDL (test code = 4.00 RATIO 2238) LIPID [id number] 00:00:00 Test Item Value Reference Range Interpretation Comments CHOLESTEROL (test code = 2210) 267 MG/DL TRIGLYCERIDES (test code = 2232) 137 MG/DL HDL CHOLESTEROL (test code = 2220) 48 MG/DL CALC LDL CHOL (test code = 2237) 192 MG/DL RISK RATIO LDL/HDL (test code = 4.00 RATIO 2238) COMPREHENSIVE METABOLIC [id number] 00:00:00 Test Item Value Reference Range Interpretation Comments GLUCOSE (test code = 2217) 155 MG/DL BUN (test code = 2208) 14 MG/DL CREATININE (test code = 2214) 0.52 MG/DL eGFR AMER. (test code 122 ML/MIN/1.73 = 50558) eGFR NON- AMER. (test 105 ML/MIN/1.73 code = 70549) CALC BUN/CREAT (test code = 27 RATIO [...] code = 2219) 27 U/L COMPREHENSIVE METABOLIC [id number] 00:00:00 Test Item Value Reference Range Interpretation Comments GLUCOSE (test code = 2217) 155 MG/DL BUN (test code = 2208) 14 MG/DL CREATININE (test code = 2214) 0.52 MG/DL eGFR AMER. (test code 122 ML/MIN/1.73 = 24165) eGFR NON- AMER. (test 105 ML/MIN/1.73 code = 68278) CALC BUN/CREAT (test code = 27 RATIO [...] THYROX. BIND. CAPAC. (test code 1.0 = 68659) T4 (THYROXINE) (test code = 4.7 UG/DL 2819) CORRECTED T4 (FTI) (test code = 4.7 UG/DL 2820) TSH, THIRD GENERATION (test code 0.201 UIU/ML = 2821) SARS-CoV-2 (COVID-19) by RT-PCR (HIGH RISK)2019-09-18 00:00:00 Test Item Value Reference Range Interpretation Comments SARS-CoV-2 INTERPRETATION (test NEGATIVE code = 04554) SOURCE (test code = 47835) NOT SPECIFIED SARS-CoV-2 (COVID-19) by RT-PCR (HIGH RISK)2019-09-18 00:00:00 Test Item Value Reference Range Interpretation Comments SARS-CoV-2 INTERPRETATION (test NEGATIVE code = 96507) SOURCE (test code = 43019) NOT SPECIFIED SARS-CoV-2 (COVID-19) by RT-PCR (HIGH RISK)2019-09-18 00:00:00 Test Item Value Reference Range Interpretation Comments SARS-CoV-2 INTERPRETATION (test NEGATIVE code = 11993) SOURCE (test code = 81710) NOT SPECIFIED SARS-CoV-2 (COVID-19) by RT-PCR (HIGH RISK)2019-09-18 00:00:00 Test Item Value Reference Range Interpretation Comments SARS-CoV-2 INTERPRETATION (test NEGATIVE code = 54674) SOURCE (test code = 33262) NOT SPECIFIED SARS-CoV-2 (COVID-19) by RT-PCR (HIGH RISK)2019-09-18 00:00:00 Test Item Value Reference Range Interpretation Comments SARS-CoV-2 INTERPRETATION (test NEGATIVE code = 47176) SOURCE (test code = 20481) NOT SPECIFIED SARS-CoV-2 (COVID-19) by RT-PCR (HIGH RISK)2019-09-18 00:00:00 Test Item Value Reference Range Interpretation Comments SARS-CoV-2 INTERPRETATION (test NEGATIVE code = 98830) SOURCE (test code = 45682) NOT SPECIFIED SARS-CoV-2 (COVID-19) by RT-PCR (HIGH RISK)2019-09-18 00:00:00 Test Item Value Reference Range Interpretation Comments SARS-CoV-2 INTERPRETATION (test NEGATIVE code = 92607) SOURCE (test code = 96273) NOT SPECIFIED [id number] 00:00:00 Test Item Value Reference Range Interpretation Comments TSH, THIRD GENERATION (test code 2.490 UIU/ML = 2821) [id number] 00:00:00 Test Item Value Reference Range Interpretation Comments TSH, THIRD GENERATION (test code 2.490 UIU/ML = 2821) [id number] 00:00:00 Test Item Value Reference Range Interpretation Comments TSH, THIRD GENERATION (test code 2.490 UIU/ML = 2821) HEMOGLOBIN [id number] 00:00:00 Test Item Value Reference Range Interpretation Comments HEMOGLOBIN A1c (test code = 95129) 6.4 % HEMOGLOBIN [id number] 00:00:00 Test Item Value Reference Range Interpretation Comments HEMOGLOBIN A1c (test code = 27869) 6.4 % HEMOGLOBIN [id number] 00:00:00 Test Item Value Reference Range Interpretation Comments HEMOGLOBIN A1c (test code = 86848) 6.4 % COMPREHENSIVE METABOLIC [id number] 00:00:00 Test Item Value Reference Range Interpretation Comments GLUCOSE (test code = 2217) 206 MG/DL BUN (test code = 2208) 23 MG/DL CREATININE (test code = 2214) 0.67 MG/DL eGFR AMER. (test code 112 ML/MIN/1.73 = 37328) eGFR NON- AMER. (test 97 ML/MIN/1.73 code = 62283) CALC BUN/CREAT (test code = 34 RATIO [...] code = 2219) 25 U/L COMPREHENSIVE METABOLIC [id number] 00:00:00 Test Item Value Reference Range Interpretation Comments GLUCOSE (test code = 2217) 206 MG/DL BUN (test code = 2208) 23 MG/DL CREATININE (test code = 2214) 0.67 MG/DL eGFR AMER. (test code 112 ML/MIN/1.73 = 54636) eGFR NON- AMER. (test 97 ML/MIN/1.73 code = 50746) CALC BUN/CREAT (test code = 34 RATIO [...] ALT (test code = 2219) 25 U/L [id number] 00:00:00 Test Item Value Reference Range Interpretation Comments TSH, THIRD GENERATION (test code 2.490 UIU/ML = 2821) [id number] 00:00:00 Test Item Value Reference Range Interpretation Comments TSH, THIRD GENERATION (test code 2.490 UIU/ML = 2821) [id number] 00:00:00 Test Item Value Reference Range Interpretation Comments TSH, THIRD GENERATION (test code 2.490 UIU/ML = 2821) HEMOGLOBIN [id number] 00:00:00 Test Item Value Reference Range Interpretation Comments HEMOGLOBIN A1c (test code = 19118) 6.4 % HEMOGLOBIN [id number] 00:00:00 Test Item Value Reference Range Interpretation Comments HEMOGLOBIN A1c (test code = 58643) 6.4 % HEMOGLOBIN [id number] 00:00:00 Test Item Value Reference Range Interpretation Comments HEMOGLOBIN A1c (test code = 18325) 6.4 % COMPREHENSIVE METABOLIC [id number] 00:00:00 Test Item Value Reference Range Interpretation Comments GLUCOSE (test code = 2217) 206 MG/DL BUN (test code = 2208) 23 MG/DL CREATININE (test code = 2214) 0.67 MG/DL eGFR AMER. (test code 112 ML/MIN/1.73 = 45715) eGFR NON- AMER. (test 97 ML/MIN/1.73 code = 35785) CALC BUN/CREAT (test code = 34 RATIO [...] code = 2219) 25 U/L COMPREHENSIVE METABOLIC [id number] 00:00:00 Test Item Value Reference Range Interpretation Comments GLUCOSE (test code = 2217) 206 MG/DL BUN (test code = 2208) 23 MG/DL CREATININE (test code = 2214) 0.67 MG/DL eGFR AMER. (test code 112 ML/MIN/1.73 = 12599) eGFR NON- AMER. (test 97 ML/MIN/1.73 code = 76441) CALC BUN/CREAT (test code = 34 RATIO [...] ALT (test code = 2219) 25 U/L [id number] 00:00:00 Test Item Value Reference Range Interpretation Comments TSH, THIRD GENERATION (test code 2.490 UIU/ML = 2821) [id number] 00:00:00 Test Item Value Reference Range Interpretation Comments TSH, THIRD GENERATION (test code 2.490 UIU/ML = 2821) HEMOGLOBIN [id number] 00:00:00 Test Item Value Reference Range Interpretation Comments HEMOGLOBIN A1c (test code = 83824) 6.4 % HEMOGLOBIN [id number] 00:00:00 Test Item Value Reference Range Interpretation Comments HEMOGLOBIN A1c (test code = 13388) 6.4 % COMPREHENSIVE METABOLIC [id number] 00:00:00 Test Item Value Reference Range Interpretation Comments GLUCOSE (test code = 2217) 206 MG/DL BUN (test code = 2208) 23 MG/DL CREATININE (test code = 2214) 0.67 MG/DL eGFR AMER. (test code 112 ML/MIN/1.73 = 88254) eGFR NON- AMER. (test 97 ML/MIN/1.73 code = 08381) CALC BUN/CREAT (test code = 34 RATIO [...] ALT (test code = 2219) 25 U/L [id number] 00:00:00 Test Item Value Reference Range Interpretation Comments TSH, THIRD GENERATION (test code 2.490 UIU/ML = 2821) [id number] 00:00:00 Test Item Value Reference Range Interpretation Comments TSH, THIRD GENERATION (test code 2.490 UIU/ML = 2821) [id number] 00:00:00 Test Item Value Reference Range Interpretation Comments TSH, THIRD GENERATION (test code 2.490 UIU/ML = 2821) HEMOGLOBIN [id number] 00:00:00 Test Item Value Reference Range Interpretation Comments HEMOGLOBIN A1c (test code = 43377) 6.4 % HEMOGLOBIN [id number] 00:00:00 Test Item Value Reference Range Interpretation Comments HEMOGLOBIN A1c (test code = 35771) 6.4 % HEMOGLOBIN [id number] 00:00:00 Test Item Value Reference Range Interpretation Comments HEMOGLOBIN A1c (test code = 56102) 6.4 % COMPREHENSIVE METABOLIC [id number] 00:00:00 Test Item Value Reference Range Interpretation Comments GLUCOSE (test code = 2217) 206 MG/DL BUN (test code = 2208) 23 MG/DL CREATININE (test code = 2214) 0.67 MG/DL eGFR AMER. (test code 112 ML/MIN/1.73 = 65583) eGFR NON- AMER. (test 97 ML/MIN/1.73 code = 84104) CALC BUN/CREAT (test code = 34 RATIO [...] code = 2219) 25 U/L COMPREHENSIVE METABOLIC [id number] 00:00:00 Test Item Value Reference Range Interpretation Comments GLUCOSE (test code = 2217) 206 MG/DL BUN (test code = 2208) 23 MG/DL CREATININE (test code = 2214) 0.67 MG/DL eGFR AMER. (test code 112 ML/MIN/1.73 = 88580) eGFR NON- AMER. (test 97 ML/MIN/1.73 code = 04659) CALC BUN/CREAT (test code = 34 RATIO [...] = 2219) 25 U/L VAGINAL PATHOGENS DNA [id number] 00:00:00 Test Item Value Reference Range Interpretation Comments MARK SPECIES (test code = 43275) NEGATIVE G. VAGINALIS (test code = 09886) NEGATIVE T. VAGINALIS (test code = 21810) NEGATIVE VAGINAL PATHOGENS DNA [id number] 00:00:00 Test Item Value Reference Range Interpretation Comments MARK SPECIES (test code = 40909) NEGATIVE G. VAGINALIS (test code = 86537) NEGATIVE T. VAGINALIS (test code = 50955) NEGATIVE VAGINAL PATHOGENS DNA [id number] 00:00:00 Test Item Value Reference Range Interpretation Comments MARK SPECIES (test code = 38999) NEGATIVE G. VAGINALIS (test code = 76976) NEGATIVE T. VAGINALIS (test code = 14842) NEGATIVE VAGINAL PATHOGENS DNA [id number] 00:00:00 Test Item Value Reference Range Interpretation Comments MARK SPECIES (test code = 64852) NEGATIVE G. VAGINALIS (test code = 61972) NEGATIVE T. VAGINALIS (test code = 19337) NEGATIVE VAGINAL PATHOGENS DNA [id number] 00:00:00 Test Item Value Reference Range Interpretation Comments MARK SPECIES (test code = 91166) NEGATIVE G. VAGINALIS (test code = 57349) NEGATIVE T. VAGINALIS (test code = 27694) NEGATIVE VAGINAL PATHOGENS DNA [id number] 00:00:00 Test Item Value Reference Range Interpretation Comments MARK SPECIES (test code = 02036) NEGATIVE G. VAGINALIS (test code = 75402) NEGATIVE T. VAGINALIS (test code = 54611) NEGATIVE VAGINAL PATHOGENS DNA [id number] 00:00:00 Test Item Value Reference Range Interpretation Comments MARK SPECIES (test code = 51545) NEGATIVE G. VAGINALIS (test code = 09595) NEGATIVE T. VAGINALIS (test code = 20184) NEGATIVE HEMOGLOBIN A1c [ADDED]2018-12-01 00:00:00 Test Item Value Reference Range Interpretation Comments HEMOGLOBIN A1c (test code = 79542) 6.7 % HEMOGLOBIN A1c [ADDED]2018-12-01 00:00:00 Test Item Value Reference Range Interpretation Comments HEMOGLOBIN A1c (test code = 67881) 6.7 % HEMOGLOBIN A1c [ADDED]2018-12-01 00:00:00 Test Item Value Reference Range Interpretation Comments HEMOGLOBIN A1c (test code = 48346) 6.7 % COMPREHENSIVE METABOLIC PANEL [ADDED]2018-12-01 00:00:00 Test Item Value Reference Range Interpretation Comments GLUCOSE (test code = 2217) 136 MG/DL BUN (test code = 2208) 15 MG/DL CREATININE (test code = 2214) 0.64 MG/DL eGFR AMER. (test code 115 ML/MIN/1.73 = 95393) eGFR NON- AMER. (test 99 ML/MIN/1.73 code = 05623) CALC BUN/CREAT (test code = 23 RATIO [...] eGFR AMER. (test code 115 ML/MIN/1.73 = 92112) eGFR NON- AMER. (test 99 ML/MIN/1.73 code = 85234) CALC BUN/CREAT (test code = 23 RATIO [...] Interpretation Comments HEMOGLOBIN A1c (test code = 99966) 6.7 % HEMOGLOBIN A1c [ADDED]2018-12-01 00:00:00 Test Item Value Reference Range Interpretation Comments HEMOGLOBIN A1c (test code = 43129) 6.7 % HEMOGLOBIN A1c [ADDED]2018-12-01 00:00:00 Test Item Value Reference Range Interpretation Comments HEMOGLOBIN A1c (test code = 20065) 6.7 % COMPREHENSIVE METABOLIC PANEL [ADDED]2018-12-01 00:00:00 Test Item Value Reference Range Interpretation Comments GLUCOSE (test code = 2217) 136 MG/DL BUN (test code = 2208) 15 MG/DL CREATININE (test code = 2214) 0.64 MG/DL eGFR AMER. (test code 115 ML/MIN/1.73 = 24724) eGFR NON- AMER. (test 99 ML/MIN/1.73 code = 75554) CALC BUN/CREAT (test code = 23 RATIO [...] eGFR AMER. (test code 115 ML/MIN/1.73 = 49429) eGFR NON- AMER. (test 99 ML/MIN/1.73 code = 85678) CALC BUN/CREAT (test code = 23 RATIO [...] Interpretation Comments HEMOGLOBIN A1c (test code = 39477) 6.7 % HEMOGLOBIN A1c [ADDED]2018-12-01 00:00:00 Test Item Value Reference Range Interpretation Comments HEMOGLOBIN A1c (test code = 52036) 6.7 % COMPREHENSIVE METABOLIC PANEL [ADDED]2018-12-01 00:00:00 Test Item Value Reference Range Interpretation Comments GLUCOSE (test code = 2217) 136 MG/DL BUN (test code = 2208) 15 MG/DL CREATININE (test code = 2214) 0.64 MG/DL eGFR AMER. (test code 115 ML/MIN/1.73 = 41144) eGFR NON- AMER. (test 99 ML/MIN/1.73 code = 83752) CALC BUN/CREAT (test code = 23 RATIO [...] Interpretation Comments HEMOGLOBIN A1c (test code = 96227) 6.7 % HEMOGLOBIN A1c [ADDED]2018-12-01 00:00:00 Test Item Value Reference Range Interpretation Comments HEMOGLOBIN A1c (test code = 77472) 6.7 % HEMOGLOBIN A1c [ADDED]2018-12-01 00:00:00 Test Item Value Reference Range Interpretation Comments HEMOGLOBIN A1c (test code = 68983) 6.7 % COMPREHENSIVE METABOLIC PANEL [ADDED]2018-12-01 00:00:00 Test Item Value Reference Range Interpretation Comments GLUCOSE (test code = 2217) 136 MG/DL BUN (test code = 2208) 15 MG/DL CREATININE (test code = 2214) 0.64 MG/DL eGFR AMER. (test code 115 ML/MIN/1.73 = 73295) eGFR NON- AMER. (test 99 ML/MIN/1.73 code = 81454) CALC BUN/CREAT (test code = 23 RATIO [...] eGFR AMER. (test code 115 ML/MIN/1.73 = 19908) eGFR NON- AMER. (test 99 ML/MIN/1.73 code = 50508) CALC BUN/CREAT (test code = 23 RATIO [...] GENERATION (test code 1.280 UIU/ML = 2821) COMPREHENSIVE METABOLIC [id number] 00:00:00 Test Item Value Reference Range Interpretation Comments GLUCOSE (test code = 2217) 113 MG/DL BUN (test code = 2208) 18 MG/DL CREATININE (test code = 2214) 0.70 MG/DL eGFR AMER. (test code 111 ML/MIN/1.73 = 60609) eGFR NON- AMER. (test 96 ML/MIN/1.73 code = 09891) CALC BUN/CREAT (test code = 26 RATIO [...] ALT (test code = 2219) 31 U/L [id number] 00:00:00 Test Item Value Reference Range Interpretation Comments TSH, THIRD GENERATION (test code 2.520 UIU/ML = 2821) [id number] 00:00:00 Test Item Value Reference Range Interpretation Comments TSH, THIRD GENERATION (test code 2.520 UIU/ML = 2821) [id number] 00:00:00 Test Item Value Reference Range Interpretation Comments TSH, THIRD GENERATION (test code 2.520 UIU/ML = 2821) CBC W/AUTO [id number] 00:00:00 Test Item Value Reference Range Interpretation [...] code = 1015) 346 K/UL CBC W/AUTO [id number] 00:00:00 Test Item Value Reference Range Interpretation [...] code = 1015) 346 K/UL CBC W/AUTO [id number] 00:00:00 Test Item Value Reference Range Interpretation [...] (test code = 1015) 346 K/UL HEMOGLOBIN [id number] 00:00:00 Test Item Value Reference Range Interpretation Comments HEMOGLOBIN A1c (test code = 23101) 5.9 % HEMOGLOBIN [id number] 00:00:00 Test Item Value Reference Range Interpretation Comments HEMOGLOBIN A1c (test code = 98741) 5.9 % HEMOGLOBIN [id number] 00:00:00 Test Item Value Reference Range Interpretation Comments HEMOGLOBIN A1c (test code = 28454) 5.9 % LIPID [id number] 00:00:00 Test Item Value Reference Range Interpretation Comments CHOLESTEROL (test code = 2210) 318 MG/DL TRIGLYCERIDES (test code = 2232) 263 MG/DL HDL CHOLESTEROL (test code = 2220) 51 MG/DL CALC LDL CHOL (test code = 2237) 214 MG/DL RISK RATIO LDL/HDL (test code = 4.20 RATIO 2238) LIPID [id number] 00:00:00 Test Item Value Reference Range Interpretation Comments CHOLESTEROL (test code = 2210) 318 MG/DL TRIGLYCERIDES (test code = 2232) 263 MG/DL HDL CHOLESTEROL (test code = 2220) 51 MG/DL CALC LDL CHOL (test code = 2237) 214 MG/DL RISK RATIO LDL/HDL (test code = 4.20 RATIO 2238) COMPREHENSIVE METABOLIC [id number] 00:00:00 Test Item Value Reference Range Interpretation Comments GLUCOSE (test code = 2217) 113 MG/DL BUN (test code = 2208) 18 MG/DL CREATININE (test code = 2214) 0.70 MG/DL eGFR AMER. (test code 111 ML/MIN/1.73 = 25854) eGFR NON- AMER. (test 96 ML/MIN/1.73 code = 26882) CALC BUN/CREAT (test code = 26 RATIO [...] code = 2219) 31 U/L COMPREHENSIVE METABOLIC [id number] 00:00:00 Test Item Value Reference Range Interpretation Comments GLUCOSE (test code = 2217) 113 MG/DL BUN (test code = 2208) 18 MG/DL CREATININE (test code = 2214) 0.70 MG/DL eGFR AMER. (test code 111 ML/MIN/1.73 = 50807) eGFR NON- AMER. (test 96 ML/MIN/1.73 code = 28433) CALC BUN/CREAT (test code = 26 RATIO [...] ALT (test code = 2219) 31 U/L [id number] 00:00:00 Test Item Value Reference Range Interpretation Comments TSH, THIRD GENERATION (test code 2.520 UIU/ML = 2821) [id number] 00:00:00 Test Item Value Reference Range Interpretation Comments TSH, THIRD GENERATION (test code 2.520 UIU/ML = 2821) [id number] 00:00:00 Test Item Value Reference Range Interpretation Comments TSH, THIRD GENERATION (test code 2.520 UIU/ML = 2821) CBC W/AUTO [id number] 00:00:00 Test Item Value Reference Range Interpretation [...] code = 1015) 346 K/UL CBC W/AUTO [id number] 00:00:00 Test Item Value Reference Range Interpretation [...] code = 1015) 346 K/UL CBC W/AUTO [id number] 00:00:00 Test Item Value Reference Range Interpretation [...] (test code = 1015) 346 K/UL HEMOGLOBIN [id number] 00:00:00 Test Item Value Reference Range Interpretation Comments HEMOGLOBIN A1c (test code = 56755) 5.9 % HEMOGLOBIN [id number] 00:00:00 Test Item Value Reference Range Interpretation Comments HEMOGLOBIN A1c (test code = 97584) 5.9 % HEMOGLOBIN [id number] 00:00:00 Test Item Value Reference Range Interpretation Comments HEMOGLOBIN A1c (test code = 30622) 5.9 % LIPID [id number] 00:00:00 Test Item Value Reference Range Interpretation Comments CHOLESTEROL (test code = 2210) 318 MG/DL TRIGLYCERIDES (test code = 2232) 263 MG/DL HDL CHOLESTEROL (test code = 2220) 51 MG/DL CALC LDL CHOL (test code = 2237) 214 MG/DL RISK RATIO LDL/HDL (test code = 4.20 RATIO 2238) LIPID [id number] 00:00:00 Test Item Value Reference Range Interpretation Comments CHOLESTEROL (test code = 2210) 318 MG/DL TRIGLYCERIDES (test code = 2232) 263 MG/DL HDL CHOLESTEROL (test code = 2220) 51 MG/DL CALC LDL CHOL (test code = 2237) 214 MG/DL RISK RATIO LDL/HDL (test code = 4.20 RATIO 2238) COMPREHENSIVE METABOLIC [id number] 00:00:00 Test Item Value Reference Range Interpretation Comments GLUCOSE (test code = 2217) 113 MG/DL BUN (test code = 2208) 18 MG/DL CREATININE (test code = 2214) 0.70 MG/DL eGFR AMER. (test code 111 ML/MIN/1.73 = 87163) eGFR NON- AMER. (test 96 ML/MIN/1.73 code = 07248) CALC BUN/CREAT (test code = 26 RATIO [...] code = 2219) 31 U/L COMPREHENSIVE METABOLIC [id number] 00:00:00 Test Item Value Reference Range Interpretation Comments GLUCOSE (test code = 2217) 113 MG/DL BUN (test code = 2208) 18 MG/DL CREATININE (test code = 2214) 0.70 MG/DL eGFR AMER. (test code 111 ML/MIN/1.73 = 14100) eGFR NON- AMER. (test 96 ML/MIN/1.73 code = 12272) CALC BUN/CREAT (test code = 26 RATIO [...] ALT (test code = 2219) 31 U/L [id number] 00:00:00 Test Item Value Reference Range Interpretation Comments TSH, THIRD GENERATION (test code 2.520 UIU/ML = 2821) [id number] 00:00:00 Test Item Value Reference Range Interpretation Comments TSH, THIRD GENERATION (test code 2.520 UIU/ML = 2821) [id number] 00:00:00 Test Item Value Reference Range Interpretation Comments TSH, THIRD GENERATION (test code 2.520 UIU/ML = 2821) CBC W/AUTO [id number] 00:00:00 Test Item Value Reference Range Interpretation [...] code = 1015) 346 K/UL CBC W/AUTO [id number] 00:00:00 Test Item Value Reference Range Interpretation [...] (test code = 1015) 346 K/UL HEMOGLOBIN [id number] 00:00:00 Test Item Value Reference Range Interpretation Comments HEMOGLOBIN A1c (test code = 82863) 5.9 % HEMOGLOBIN [id number] 00:00:00 Test Item Value Reference Range Interpretation Comments HEMOGLOBIN A1c (test code = 69715) 5.9 % LIPID [id number] 00:00:00 Test Item Value Reference Range Interpretation Comments CHOLESTEROL (test code = 2210) 318 MG/DL TRIGLYCERIDES (test code = 2232) 263 MG/DL HDL CHOLESTEROL (test code = 2220) 51 MG/DL CALC LDL CHOL (test code = 2237) 214 MG/DL RISK RATIO LDL/HDL (test code = 4.20 RATIO 2238) COMPREHENSIVE METABOLIC [id number] 00:00:00 Test Item Value Reference Range Interpretation Comments GLUCOSE (test code = 2217) 113 MG/DL BUN (test code = 2208) 18 MG/DL CREATININE (test code = 2214) 0.70 MG/DL eGFR AMER. (test code 111 ML/MIN/1.73 = 31367) eGFR NON- AMER. (test 96 ML/MIN/1.73 code = 36922) CALC BUN/CREAT (test code = 26 RATIO [...] ALT (test code = 2219) 31 U/L [id number] 00:00:00 Test Item Value Reference Range Interpretation Comments TSH, THIRD GENERATION (test code 2.520 UIU/ML = 2821) [id number] 00:00:00 Test Item Value Reference Range Interpretation Comments TSH, THIRD GENERATION (test code 2.520 UIU/ML = 2821) CBC W/AUTO [id number] 00:00:00 Test Item Value Reference Range Interpretation [...] code = 1015) 346 K/UL CBC W/AUTO [id number] 00:00:00 Test Item Value Reference Range Interpretation [...] code = 1015) 346 K/UL CBC W/AUTO [id number] 00:00:00 Test Item Value Reference Range Interpretation [...] (test code = 1015) 346 K/UL HEMOGLOBIN [id number] 00:00:00 Test Item Value Reference Range Interpretation Comments HEMOGLOBIN A1c (test code = 45508) 5.9 % HEMOGLOBIN [id number] 00:00:00 Test Item Value Reference Range Interpretation Comments HEMOGLOBIN A1c (test code = 56289) 5.9 % HEMOGLOBIN [id number] 00:00:00 Test Item Value Reference Range Interpretation Comments HEMOGLOBIN A1c (test code = 44204) 5.9 % LIPID [id number] 00:00:00 Test Item Value Reference Range Interpretation Comments CHOLESTEROL (test code = 2210) 318 MG/DL TRIGLYCERIDES (test code = 2232) 263 MG/DL HDL CHOLESTEROL (test code = 2220) 51 MG/DL CALC LDL CHOL (test code = 2237) 214 MG/DL RISK RATIO LDL/HDL (test code = 4.20 RATIO 2238) LIPID [id number] 00:00:00 Test Item Value Reference Range Interpretation Comments CHOLESTEROL (test code = 2210) 318 MG/DL TRIGLYCERIDES (test code = 2232) 263 MG/DL HDL CHOLESTEROL (test code = 2220) 51 MG/DL CALC LDL CHOL (test code = 2237) 214 MG/DL RISK RATIO LDL/HDL (test code = 4.20 RATIO 2238) COMPREHENSIVE METABOLIC [id number] 00:00:00 Test Item Value Reference Range Interpretation Comments GLUCOSE (test code = 2217) 113 MG/DL BUN (test code = 2208) 18 MG/DL CREATININE (test code = 2214) 0.70 MG/DL eGFR AMER. (test code 111 ML/MIN/1.73 = 79714) eGFR NON- AMER. (test 96 ML/MIN/1.73 code = 24303) CALC BUN/CREAT (test code = 26 RATIO [...] ALT (test code = 2219) 31 U/L CULTURE, [id number] 00:00:00 Test Item Value Reference Range Interpretation Comments CULTURE, URINE (test SPECIMEN NUMBER: code = 81311) [id number] CULTURE, [id number] 00:00:00 Test Item Value Reference Range Interpretation Comments CULTURE, URINE (test SPECIMEN NUMBER: code = 94678) [id number] CULTURE, [id number] 00:00:00 Test Item Value Reference Range Interpretation Comments CULTURE, URINE (test SPECIMEN NUMBER: code = 59753) [id number] CULTURE, [id number] 00:00:00 Test Item Value Reference Range Interpretation Comments CULTURE, URINE (test SPECIMEN NUMBER: code = 57846) [id number] CULTURE, [id number] 00:00:00 Test Item Value Reference Range Interpretation Comments CULTURE, URINE (test SPECIMEN NUMBER: code = 44452) [id number] CULTURE, [id number] 00:00:00 Test Item Value Reference Range Interpretation Comments CULTURE, URINE (test SPECIMEN NUMBER: code = 04674) [id number] CULTURE, [id number] 00:00:00 Test Item Value Reference Range Interpretation Comments CULTURE, URINE (test SPECIMEN NUMBER: code = 85036) [id number] CULTURE, [id number] 00:00:00 Test Item Value Reference Range Interpretation Comments CULTURE, URINE (test SPECIMEN NUMBER: code = 77186) [id number] CULTURE, [id number] 00:00:00 Test Item Value Reference Range Interpretation Comments CULTURE, URINE (test SPECIMEN NUMBER: code = 47153) [id number] CULTURE, [id number] 00:00:00 Test Item Value Reference Range Interpretation Comments CULTURE, URINE (test SPECIMEN NUMBER: code = 58941) [id number] CULTURE, [id number] 00:00:00 Test Item Value Reference Range Interpretation Comments CULTURE, URINE (test SPECIMEN NUMBER: code = 04223) [id number] CULTURE, [id number] 00:00:00 Test Item Value Reference Range Interpretation Comments CULTURE, URINE (test SPECIMEN NUMBER: code = 02477) [id number] CULTURE, [id number] 00:00:00 Test Item Value Reference Range Interpretation Comments CULTURE, URINE (test SPECIMEN NUMBER: code = 24335) [id number] CULTURE, [id number] 00:00:00 Test Item Value Reference Range Interpretation Comments CULTURE, URINE (test SPECIMEN NUMBER: code = 78462) [id number] BASIC METABOLIC [id number] 00:00:00 Test Item Value Reference Range Interpretation Comments GLUCOSE (test code = 2217) 135 MG/DL BUN (test code = 2208) 25 MG/DL CREATININE (test code = 2214) 0.76 MG/DL eGFR AMER. (test code 101 ML/MIN/1.73 = 72169) eGFR NON- AMER. (test 87 ML/MIN/1.73 code = 30040) SODIUM (test code = 2231) 139 MEQ/L POTASSIUM (test code = 2228) 4.7 MEQ/L CHLORIDE (test code = 2215) 99 MEQ/L CARBON DIOXIDE (test code = 26 MEQ/L 2206) CALCIUM (test code = 2209) 9.4 MG/DL BASIC METABOLIC [id number] 00:00:00 Test Item Value Reference Range Interpretation Comments GLUCOSE (test code = 2217) 135 MG/DL BUN (test code = 2208) 25 MG/DL CREATININE (test code = 2214) 0.76 MG/DL eGFR AMER. (test code 101 ML/MIN/1.73 = 02779) eGFR NON- AMER. (test 87 ML/MIN/1.73 code = 99084) SODIUM (test code = 2231) 139 MEQ/L POTASSIUM (test code = 2228) 4.7 MEQ/L CHLORIDE (test code = 2215) 99 MEQ/L CARBON DIOXIDE (test code = 26 MEQ/L 2206) CALCIUM (test code = 2209) 9.4 MG/DL LIPID [id number] 00:00:00 Test Item Value Reference Range Interpretation Comments CHOLESTEROL (test code = 2210) 262 MG/DL TRIGLYCERIDES (test code = 2232) 300 MG/DL HDL CHOLESTEROL (test code = 2220) 36 MG/DL CALC LDL CHOL (test code = 2237) 166 MG/DL RISK RATIO LDL/HDL (test code = 4.61 RATIO 2238) LIPID [id number] 00:00:00 Test Item Value Reference Range Interpretation Comments CHOLESTEROL (test code = 2210) 262 MG/DL TRIGLYCERIDES (test code = 2232) 300 MG/DL HDL CHOLESTEROL (test code = 2220) 36 MG/DL CALC LDL CHOL (test code = 2237) 166 MG/DL RISK RATIO LDL/HDL (test code = 4.61 RATIO 2238) HEMOGLOBIN [id number] 00:00:00 Test Item Value Reference Range Interpretation Comments HEMOGLOBIN A1c (test code = 17299) 6.2 % HEMOGLOBIN [id number] 00:00:00 Test Item Value Reference Range Interpretation Comments HEMOGLOBIN A1c (test code = 51057) 6.2 % HEMOGLOBIN [id number] 00:00:00 Test Item Value Reference Range Interpretation Comments HEMOGLOBIN A1c (test code = 51297) 6.2 % [id number] 00:00:00 Test Item Value Reference Range Interpretation Comments TSH, THIRD GENERATION (test code 0.988 UIU/ML = 2821) [id number] 00:00:00 Test Item Value Reference Range Interpretation Comments TSH, THIRD GENERATION (test code 0.988 UIU/ML = 2821) [id number] 00:00:00 Test Item Value Reference Range Interpretation Comments TSH, THIRD GENERATION (test code 0.988 UIU/ML = 2821) BASIC METABOLIC [id number] 00:00:00 Test Item Value Reference Range Interpretation Comments GLUCOSE (test code = 2217) 135 MG/DL BUN (test code = 2208) 25 MG/DL CREATININE (test code = 2214) 0.76 MG/DL eGFR AMER. (test code 101 ML/MIN/1.73 = 27490) eGFR NON- AMER. (test 87 ML/MIN/1.73 code = 92456) SODIUM (test code = 2231) 139 MEQ/L POTASSIUM (test code = 2228) 4.7 MEQ/L CHLORIDE (test code = 2215) 99 MEQ/L CARBON DIOXIDE (test code = 26 MEQ/L 220) CALCIUM (test code = 2209) 9.4 MG/DL BASIC METABOLIC [id number] 00:00:00 Test Item Value Reference Range Interpretation Comments GLUCOSE (test code = 2217) 135 MG/DL BUN (test code = 2208) 25 MG/DL CREATININE (test code = 2214) 0.76 MG/DL eGFR AMER. (test code 101 ML/MIN/1.73 = 50145) eGFR NON- AMER. (test 87 ML/MIN/1.73 code = 23112) SODIUM (test code = 2231) 139 MEQ/L POTASSIUM (test code = 2228) 4.7 MEQ/L CHLORIDE (test code = 2215) 99 MEQ/L CARBON DIOXIDE (test code = 26 MEQ/L 2206) CALCIUM (test code = 2209) 9.4 MG/DL LIPID [id number] 00:00:00 Test Item Value Reference Range Interpretation Comments CHOLESTEROL (test code = 2210) 262 MG/DL TRIGLYCERIDES (test code = 2232) 300 MG/DL HDL CHOLESTEROL (test code = 2220) 36 MG/DL CALC LDL CHOL (test code = 2237) 166 MG/DL RISK RATIO LDL/HDL (test code = 4.61 RATIO 2238) LIPID [id number] 00:00:00 Test Item Value Reference Range Interpretation Comments CHOLESTEROL (test code = 2210) 262 MG/DL TRIGLYCERIDES (test code = 2232) 300 MG/DL HDL CHOLESTEROL (test code = 2220) 36 MG/DL CALC LDL CHOL (test code = 2237) 166 MG/DL RISK RATIO LDL/HDL (test code = 4.61 RATIO 2238) HEMOGLOBIN [id number] 00:00:00 Test Item Value Reference Range Interpretation Comments HEMOGLOBIN A1c (test code = 78974) 6.2 % HEMOGLOBIN [id number] 00:00:00 Test Item Value Reference Range Interpretation Comments HEMOGLOBIN A1c (test code = 39630) 6.2 % HEMOGLOBIN [id number] 00:00:00 Test Item Value Reference Range Interpretation Comments HEMOGLOBIN A1c (test code = 89982) 6.2 % [id number] 00:00:00 Test Item Value Reference Range Interpretation Comments TSH, THIRD GENERATION (test code 0.988 UIU/ML = 2821) [id number] 00:00:00 Test Item Value Reference Range Interpretation Comments TSH, THIRD GENERATION (test code 0.988 UIU/ML = 2821) [id number] 00:00:00 Test Item Value Reference Range Interpretation Comments TSH, THIRD GENERATION (test code 0.988 UIU/ML = 2821) BASIC METABOLIC [id number] 00:00:00 Test Item Value Reference Range Interpretation Comments GLUCOSE (test code = 2217) 135 MG/DL BUN (test code = 2208) 25 MG/DL CREATININE (test code = 2214) 0.76 MG/DL eGFR AMER. (test code 101 ML/MIN/1.73 = 45444) eGFR NON- AMER. (test 87 ML/MIN/1.73 code = 18494) SODIUM (test code = 2231) 139 MEQ/L POTASSIUM (test code = 2228) 4.7 MEQ/L CHLORIDE (test code = 2215) 99 MEQ/L CARBON DIOXIDE (test code = 26 MEQ/L 2206) CALCIUM (test code = 2209) 9.4 MG/DL LIPID [id number] 00:00:00 Test Item Value Reference Range Interpretation Comments CHOLESTEROL (test code = 2210) 262 MG/DL TRIGLYCERIDES (test code = 2232) 300 MG/DL HDL CHOLESTEROL (test code = 2220) 36 MG/DL CALC LDL CHOL (test code = 2237) 166 MG/DL RISK RATIO LDL/HDL (test code = 4.61 RATIO 2238) HEMOGLOBIN [id number] 00:00:00 Test Item Value Reference Range Interpretation Comments HEMOGLOBIN A1c (test code = 13116) 6.2 % HEMOGLOBIN [id number] 00:00:00 Test Item Value Reference Range Interpretation Comments HEMOGLOBIN A1c (test code = 47070) 6.2 % [id number] 00:00:00 Test Item Value Reference Range Interpretation Comments TSH, THIRD GENERATION (test code 0.988 UIU/ML = 2821) [id number] 00:00:00 Test Item Value Reference Range Interpretation Comments TSH, THIRD GENERATION (test code 0.988 UIU/ML = 2821) BASIC METABOLIC [id number] 00:00:00 Test Item Value Reference Range Interpretation Comments GLUCOSE (test code = 2217) 135 MG/DL BUN (test code = 2208) 25 MG/DL CREATININE (test code = 2214) 0.76 MG/DL eGFR AMER. (test code 101 ML/MIN/1.73 = 51894) eGFR NON- AMER. (test 87 ML/MIN/1.73 code = 92470) SODIUM (test code = 2231) 139 MEQ/L POTASSIUM (test code = 2228) 4.7 MEQ/L CHLORIDE (test code = 2215) 99 MEQ/L CARBON DIOXIDE (test code = 26 MEQ/L 2206) CALCIUM (test code = 2209) 9.4 MG/DL BASIC METABOLIC [id number] 00:00:00 Test Item Value Reference Range Interpretation Comments GLUCOSE (test code = 2217) 135 MG/DL BUN (test code = 2208) 25 MG/DL CREATININE (test code = 2214) 0.76 MG/DL eGFR AMER. (test code 101 ML/MIN/1.73 = 85535) eGFR NON- AMER. (test 87 ML/MIN/1.73 code = 31557) SODIUM (test code = 2231) 139 MEQ/L POTASSIUM (test code = 2228) 4.7 MEQ/L CHLORIDE (test code = 2215) 99 MEQ/L CARBON DIOXIDE (test code = 26 MEQ/L 2206) CALCIUM (test code = 2209) 9.4 MG/DL LIPID [id number] 00:00:00 Test Item Value Reference Range Interpretation Comments CHOLESTEROL (test code = 2210) 262 MG/DL TRIGLYCERIDES (test code = 2232) 300 MG/DL HDL CHOLESTEROL (test code = 2220) 36 MG/DL CALC LDL CHOL (test code = 2237) 166 MG/DL RISK RATIO LDL/HDL (test code = 4.61 RATIO 2238) LIPID [id number] 00:00:00 Test Item Value Reference Range Interpretation Comments CHOLESTEROL (test code = 2210) 262 MG/DL TRIGLYCERIDES (test code = 2232) 300 MG/DL HDL CHOLESTEROL (test code = 2220) 36 MG/DL CALC LDL CHOL (test code = 2237) 166 MG/DL RISK RATIO LDL/HDL (test code = 4.61 RATIO 2238) HEMOGLOBIN [id number] 00:00:00 Test Item Value Reference Range Interpretation Comments HEMOGLOBIN A1c (test code = 52767) 6.2 % HEMOGLOBIN [id number] 00:00:00 Test Item Value Reference Range Interpretation Comments HEMOGLOBIN A1c (test code = 43275) 6.2 % HEMOGLOBIN [id number] 00:00:00 Test Item Value Reference Range Interpretation Comments HEMOGLOBIN A1c (test code = 92042) 6.2 % [id number] 00:00:00 Test Item Value Reference Range Interpretation Comments TSH, THIRD GENERATION (test code 0.988 UIU/ML = 2821) [id number] 00:00:00 Test Item Value Reference Range Interpretation Comments TSH, THIRD GENERATION (test code 0.988 UIU/ML = 2821) [id number] 00:00:00 Test Item Value Reference Range Interpretation Comments TSH, THIRD GENERATION (test code 0.988 UIU/ML = 2821) [id number] 00:00:00 Test Item Value Reference Range Interpretation Comments TSH, THIRD GENERATION (test code 0.565 UIU/ML = 2821) [id number] 00:00:00 Test Item Value Reference Range Interpretation Comments TSH, THIRD GENERATION (test code 0.565 UIU/ML = 2821) [id number] 00:00:00 Test Item Value Reference Range Interpretation Comments TSH, THIRD GENERATION (test code 0.565 UIU/ML = 2821) COMPREHENSIVE METABOLIC [id number] 00:00:00 Test Item Value Reference Range Interpretation Comments GLUCOSE (test code = 2217) 109 MG/DL BUN (test code = 2208) 25 MG/DL CREATININE (test code = 2214) 0.78 MG/DL eGFR AMER. (test code 98 ML/MIN/1.73 = 58319) eGFR NON- AMER. (test 84 ML/MIN/1.73 code = 66923) CALC BUN/CREAT (test code = 32 RATIO [...] code = 2219) 25 U/L COMPREHENSIVE METABOLIC [id number] 00:00:00 Test Item Value Reference Range Interpretation Comments GLUCOSE (test code = 2217) 109 MG/DL BUN (test code = 2208) 25 MG/DL CREATININE (test code = 2214) 0.78 MG/DL eGFR AMER. (test code 98 ML/MIN/1.73 = 93413) eGFR NON- AMER. (test 84 ML/MIN/1.73 code = 55804) CALC BUN/CREAT (test code = 32 RATIO [...] (test code = 2219) 25 U/L LIPID [id number] 00:00:00 Test Item Value Reference Range Interpretation Comments CHOLESTEROL (test code = 2210) 295 MG/DL TRIGLYCERIDES (test code = 2232) 218 MG/DL HDL CHOLESTEROL (test code = 2220) 46 MG/DL CALC LDL CHOL (test code = 2237) 205 MG/DL RISK RATIO LDL/HDL (test code = 4.47 RATIO 2238) LIPID [id number] 00:00:00 Test Item Value Reference Range Interpretation Comments CHOLESTEROL (test code = 2210) 295 MG/DL TRIGLYCERIDES (test code = 2232) 218 MG/DL HDL CHOLESTEROL (test code = 2220) 46 MG/DL CALC LDL CHOL (test code = 2237) 205 MG/DL RISK RATIO LDL/HDL (test code = 4.47 RATIO 2238) HEMOGLOBIN [id number] 00:00:00 Test Item Value Reference Range Interpretation Comments HEMOGLOBIN A1c (test code = 90897) 7.0 % HEMOGLOBIN [id number] 00:00:00 Test Item Value Reference Range Interpretation Comments HEMOGLOBIN A1c (test code = 84678) 7.0 % HEMOGLOBIN [id number] 00:00:00 Test Item Value Reference Range Interpretation Comments HEMOGLOBIN A1c (test code = 90553) 7.0 % [id number] 00:00:00 Test Item Value Reference Range Interpretation Comments TSH, THIRD GENERATION (test code 0.565 UIU/ML = 2821) [id number] 00:00:00 Test Item Value Reference Range Interpretation Comments TSH, THIRD GENERATION (test code 0.565 UIU/ML = 2821) 00:00:00 Test Item Value Reference Range Interpretation Comments TSH, THIRD GENERATION (test code 0.565 UIU/ML = 2821) COMPREHENSIVE METABOLIC [id number] 00:00:00 Test Item Value Reference Range Interpretation Comments GLUCOSE (test code = 2217) 109 MG/DL BUN (test code = 2208) 25 MG/DL CREATININE (test code = 2214) 0.78 MG/DL eGFR AMER. (test code 98 ML/MIN/1.73 = 26607) eGFR NON- AMER. (test 84 ML/MIN/1.73 code = 93153) CALC BUN/CREAT (test code = 32 RATIO [...] code = 2219) 25 U/L COMPREHENSIVE METABOLIC [id number] 00:00:00 Test Item Value Reference Range Interpretation Comments GLUCOSE (test code = 2217) 109 MG/DL BUN (test code = 2208) 25 MG/DL CREATININE (test code = 2214) 0.78 MG/DL eGFR AMER. (test code 98 ML/MIN/1.73 = 59893) eGFR NON- AMER. (test 84 ML/MIN/1.73 code = 15953) CALC BUN/CREAT (test code = 32 RATIO [...] (test code = 2219) 25 U/L LIPID [id number] 00:00:00 Test Item Value Reference Range Interpretation Comments CHOLESTEROL (test code = 2210) 295 MG/DL TRIGLYCERIDES (test code = 2232) 218 MG/DL HDL CHOLESTEROL (test code = 2220) 46 MG/DL CALC LDL CHOL (test code = 2237) 205 MG/DL RISK RATIO LDL/HDL (test code = 4.47 RATIO 2238) LIPID [id number] 00:00:00 Test Item Value Reference Range Interpretation Comments CHOLESTEROL (test code = 2210) 295 MG/DL TRIGLYCERIDES (test code = 2232) 218 MG/DL HDL CHOLESTEROL (test code = 2220) 46 MG/DL CALC LDL CHOL (test code = 2237) 205 MG/DL RISK RATIO LDL/HDL (test code = 4.47 RATIO 2238) HEMOGLOBIN [id number] 00:00:00 Test Item Value Reference Range Interpretation Comments HEMOGLOBIN A1c (test code = 80089) 7.0 % HEMOGLOBIN [id number] 00:00:00 Test Item Value Reference Range Interpretation Comments HEMOGLOBIN A1c (test code = 07535) 7.0 % HEMOGLOBIN [id number] 00:00:00 Test Item Value Reference Range Interpretation Comments HEMOGLOBIN A1c (test code = 05484) 7.0 % [id number] 00:00:00 Test Item Value Reference Range Interpretation Comments TSH, THIRD GENERATION (test code 0.565 UIU/ML = 2821) [id number] 00:00:00 Test Item Value Reference Range Interpretation Comments TSH, THIRD GENERATION (test code 0.565 UIU/ML = 2821) [id number] 00:00:00 Test Item Value Reference Range Interpretation Comments TSH, THIRD GENERATION (test code 0.565 UIU/ML = 2821) COMPREHENSIVE METABOLIC [id number] 00:00:00 Test Item Value Reference Range Interpretation Comments GLUCOSE (test code = 2217) 109 MG/DL BUN (test code = 2208) 25 MG/DL CREATININE (test code = 2214) 0.78 MG/DL eGFR AMER. (test code 98 ML/MIN/1.73 = 81923) eGFR NON- AMER. (test 84 ML/MIN/1.73 code = 24281) CALC BUN/CREAT (test code = 32 RATIO [...] (test code = 2219) 25 U/L LIPID [id number] 00:00:00 Test Item Value Reference Range Interpretation Comments CHOLESTEROL (test code = 2210) 295 MG/DL TRIGLYCERIDES (test code = 2232) 218 MG/DL HDL CHOLESTEROL (test code = 2220) 46 MG/DL CALC LDL CHOL (test code = 2237) 205 MG/DL RISK RATIO LDL/HDL (test code = 4.47 RATIO 2238) HEMOGLOBIN [id number] 00:00:00 Test Item Value Reference Range Interpretation Comments HEMOGLOBIN A1c (test code = 11178) 7.0 % HEMOGLOBIN [id number] 00:00:00 Test Item Value Reference Range Interpretation Comments HEMOGLOBIN A1c (test code = 21011) 7.0 % [id number] 00:00:00 Test Item Value Reference Range Interpretation Comments TSH, THIRD GENERATION (test code 0.565 UIU/ML = 2821) [id number] 00:00:00 Test Item Value Reference Range Interpretation Comments TSH, THIRD GENERATION (test code 0.565 UIU/ML = 2821) COMPREHENSIVE METABOLIC [id number] 00:00:00 Test Item Value Reference Range Interpretation Comments GLUCOSE (test code = 2217) 109 MG/DL BUN (test code = 2208) 25 MG/DL CREATININE (test code = 2214) 0.78 MG/DL eGFR AMER. (test code 98 ML/MIN/1.73 = 66903) eGFR NON- AMER. (test 84 ML/MIN/1.73 code = 53161) CALC BUN/CREAT (test code = 32 RATIO [...] code = 2219) 25 U/L COMPREHENSIVE METABOLIC [id number] 00:00:00 Test Item Value Reference Range Interpretation Comments GLUCOSE (test code = 2217) 109 MG/DL BUN (test code = 2208) 25 MG/DL CREATININE (test code = 2214) 0.78 MG/DL eGFR AMER. (test code 98 ML/MIN/1.73 = 79364) eGFR NON- AMER. (test 84 ML/MIN/1.73 code = 25198) CALC BUN/CREAT (test code = 32 RATIO [...] (test code = 2219) 25 U/L LIPID [id number] 00:00:00 Test Item Value Reference Range Interpretation Comments CHOLESTEROL (test code = 2210) 295 MG/DL TRIGLYCERIDES (test code = 2232) 218 MG/DL HDL CHOLESTEROL (test code = 2220) 46 MG/DL CALC LDL CHOL (test code = 2237) 205 MG/DL RISK RATIO LDL/HDL (test code = 4.47 RATIO 2238) LIPID [id number] 00:00:00 Test Item Value Reference Range Interpretation Comments CHOLESTEROL (test code = 2210) 295 MG/DL TRIGLYCERIDES (test code = 2232) 218 MG/DL HDL CHOLESTEROL (test code = 2220) 46 MG/DL CALC LDL CHOL (test code = 2237) 205 MG/DL RISK RATIO LDL/HDL (test code = 4.47 RATIO 2238) HEMOGLOBIN [id number] 00:00:00 Test Item Value Reference Range Interpretation Comments HEMOGLOBIN A1c (test code = 68202) 7.0 % HEMOGLOBIN [id number] 00:00:00 Test Item Value Reference Range Interpretation Comments HEMOGLOBIN A1c (test code = 59153) 7.0 % HEMOGLOBIN [id number] 00:00:00 Test Item Value Reference Range Interpretation Comments HEMOGLOBIN A1c (test code = 11095) 7.0 % [id number] 00:00:00 Test Item Value Reference Range Interpretation Comments TSH, THIRD GENERATION (test code 0.379 UIU/ML = 2821) [id number] 00:00:00 Test Item Value Reference Range Interpretation Comments TSH, THIRD GENERATION (test code 0.379 UIU/ML = 2821) [id number] 00:00:00 Test Item Value Reference Range Interpretation Comments TSH, THIRD GENERATION (test code 0.379 UIU/ML = 2821) [id number] 00:00:00 Test Item Value Reference Range Interpretation Comments TSH, THIRD GENERATION (test code 0.379 UIU/ML = 2821) [id number] 00:00:00 Test Item Value Reference Range Interpretation Comments TSH, THIRD GENERATION (test code 0.379 UIU/ML = 2821) [id number] 00:00:00 Test Item Value Reference Range Interpretation Comments TSH, THIRD GENERATION (test code 0.379 UIU/ML = 2821) [id number] 00:00:00 Test Item Value Reference Range Interpretation Comments TSH, THIRD GENERATION (test code 0.379 UIU/ML = 2821) [id number] 00:00:00 Test Item Value Reference Range Interpretation Comments TSH, THIRD GENERATION (test code 0.379 UIU/ML = 2821) [id number] 00:00:00 Test Item Value Reference Range Interpretation Comments TSH, THIRD GENERATION (test code 0.379 UIU/ML = 2821) [id number] 00:00:00 Test Item Value Reference Range Interpretation Comments TSH, THIRD GENERATION (test code 0.379 UIU/ML = 2821) [id number] 00:00:00 Test Item Value Reference Range Interpretation Comments TSH, THIRD GENERATION (test code 0.379 UIU/ML = 2821) CULTURE, [id number] 00:00:00 Test Item Value Reference Range Interpretation Comments CULTURE, URINE (test SPECIMEN NUMBER: code = 41453) [id number] CULTURE, [id number] 00:00:00 Test Item Value Reference Range Interpretation Comments CULTURE, URINE (test SPECIMEN NUMBER: code = 20417) [id number] CULTURE, [id number] 00:00:00 Test Item Value Reference Range Interpretation Comments CULTURE, URINE (test SPECIMEN NUMBER: code = 91113) [id number] CULTURE, [id number] 00:00:00 Test Item Value Reference Range Interpretation Comments CULTURE, URINE (test SPECIMEN NUMBER: code = 89553) [id number] CULTURE, [id number] 00:00:00 Test Item Value Reference Range Interpretation Comments CULTURE, URINE (test SPECIMEN NUMBER: code = 30096) [id number] CULTURE, [id number] 00:00:00 Test Item Value Reference Range Interpretation Comments CULTURE, URINE (test SPECIMEN NUMBER: code = 09526) [id number] CULTURE, [id number] 00:00:00 Test Item Value Reference Range Interpretation Comments CULTURE, URINE (test SPECIMEN NUMBER: code = 77305) [id number] COMPREHENSIVE METABOLIC [id number] 00:00:00 Test Item Value Reference Range Interpretation Comments GLUCOSE (test code = 2217) 128 MG/DL BUN (test code = 2208) 26 MG/DL CREATININE (test code = 2214) 0.92 MG/DL eGFR AMER. (test code 81 ML/MIN/1.73 = 13336) eGFR NON- AMER. (test 70 ML/MIN/1.73 code = 04832) CALC BUN/CREAT (test code = 28 RATIO [...] code = 2219) 29 U/L COMPREHENSIVE METABOLIC [id number] 00:00:00 Test Item Value Reference Range Interpretation Comments GLUCOSE (test code = 2217) 128 MG/DL BUN (test code = 2208) 26 MG/DL CREATININE (test code = 2214) 0.92 MG/DL eGFR AMER. (test code 81 ML/MIN/1.73 = 72272) eGFR NON- AMER. (test 70 ML/MIN/1.73 code = 45335) CALC BUN/CREAT (test code = 28 RATIO [...] code = 2219) 29 U/L ACUTE HEPATITIS [id number] 00:00:00 Test Item Value Reference Range Interpretation Comments HEPATITIS A IgM (test code = NON-REACTIVE 32047) HEPATITIS B CORE IgM (test code NON-REACTIVE = 4644) HEPATITIS B SURF AG (test code = NON-REACTIVE 1259) HEPATITIS C ANTIBODY (test code NON-REACTIVE = 4675) INTERPRETATION HEPATITIS A: (NOTE) (test code = 2552) INTERPRETATION HEPATITIS B: (NOTE) (test code = 90096) INTERPRETATION HEPATITIS C: (NOTE) (test code = 61144) ACUTE HEPATITIS [id number] 00:00:00 Test Item Value Reference Range Interpretation Comments HEPATITIS A IgM (test code = NON-REACTIVE 90430) HEPATITIS B CORE IgM (test code NON-REACTIVE = 4644) HEPATITIS B SURF AG (test code = NON-REACTIVE 2513) HEPATITIS C ANTIBODY (test code NON-REACTIVE = 7244) INTERPRETATION HEPATITIS A: (NOTE) (test code = 2552) INTERPRETATION HEPATITIS B: (NOTE) (test code = 41978) INTERPRETATION HEPATITIS C: (NOTE) (test code = 87990) [id number] 00:00:00 Test Item Value Reference Range Interpretation Comments AMYLASE (test code = 2205) 32 U/L [id number] 00:00:00 Test Item Value Reference Range Interpretation Comments AMYLASE (test code = 2205) 32 U/L [id number] 00:00:00 Test Item Value Reference Range Interpretation Comments LIPASE (test code = 2058) 22 U/L [id number] 00:00:00 Test Item Value Reference Range Interpretation Comments LIPASE (test code = 2058) 22 U/L [id number] 00:00:00 Test Item Value Reference Range Interpretation Comments LIPASE (test code = 2058) 22 U/L COMPREHENSIVE METABOLIC [id number] 00:00:00 Test Item Value Reference Range Interpretation Comments GLUCOSE (test code = 2217) 128 MG/DL BUN (test code = 2208) 26 MG/DL CREATININE (test code = 2214) 0.92 MG/DL eGFR AMER. (test code 81 ML/MIN/1.73 = 25459) eGFR NON- AMER. (test 70 ML/MIN/1.73 code = 03152) CALC BUN/CREAT (test code = 28 RATIO [...] code = 2219) 29 U/L COMPREHENSIVE METABOLIC [id number] 00:00:00 Test Item Value Reference Range Interpretation Comments GLUCOSE (test code = 2217) 128 MG/DL BUN (test code = 2208) 26 MG/DL CREATININE (test code = 2214) 0.92 MG/DL eGFR AMER. (test code 81 ML/MIN/1.73 = 92681) eGFR NON- AMER. (test 70 ML/MIN/1.73 code = 16364) CALC BUN/CREAT (test code = 28 RATIO [...] code = 2219) 29 U/L ACUTE HEPATITIS [id number] 00:00:00 Test Item Value Reference Range Interpretation Comments HEPATITIS A IgM (test code = NON-REACTIVE 23768) HEPATITIS B CORE IgM (test code NON-REACTIVE = 4644) HEPATITIS B SURF AG (test code = NON-REACTIVE 2739) HEPATITIS C ANTIBODY (test code NON-REACTIVE = 4675) INTERPRETATION HEPATITIS A: (NOTE) (test code = 2552) INTERPRETATION HEPATITIS B: (NOTE) (test code = 08288) INTERPRETATION HEPATITIS C: (NOTE) (test code = 57138) ACUTE HEPATITIS [id number] 00:00:00 Test Item Value Reference Range Interpretation Comments HEPATITIS A IgM (test code = NON-REACTIVE 82080) HEPATITIS B CORE IgM (test code NON-REACTIVE = 4644) HEPATITIS B SURF AG (test code = NON-REACTIVE 2739) HEPATITIS C ANTIBODY (test code NON-REACTIVE = 4675) INTERPRETATION HEPATITIS A: (NOTE) (test code = 2552) INTERPRETATION HEPATITIS B: (NOTE) (test code = 00521) INTERPRETATION HEPATITIS C: (NOTE) (test code = 82898) [id number] 00:00:00 Test Item Value Reference Range Interpretation Comments AMYLASE (test code = 2205) 32 U/L [id number] 00:00:00 Test Item Value Reference Range Interpretation Comments AMYLASE (test code = 2205) 32 U/L [id number] 00:00:00 Test Item Value Reference Range Interpretation Comments LIPASE (test code = 2058) 22 U/L [id number] 00:00:00 Test Item Value Reference Range Interpretation Comments LIPASE (test code = 2058) 22 U/L [id number] 00:00:00 Test Item Value Reference Range Interpretation Comments LIPASE (test code = 2058) 22 U/L COMPREHENSIVE METABOLIC [id number] 00:00:00 Test Item Value Reference Range Interpretation Comments GLUCOSE (test code = 2217) 128 MG/DL BUN (test code = 2208) 26 MG/DL CREATININE (test code = 2214) 0.92 MG/DL eGFR AMER. (test code 81 ML/MIN/1.73 = 84388) eGFR NON- AMER. (test 70 ML/MIN/1.73 code = 15605) CALC BUN/CREAT (test code = 28 RATIO [...] code = 2219) 29 U/L ACUTE HEPATITIS [id number] 00:00:00 Test Item Value Reference Range Interpretation Comments HEPATITIS A IgM (test code = NON-REACTIVE 69454) HEPATITIS B CORE IgM (test code NON-REACTIVE = 4644) HEPATITIS B SURF AG (test code = NON-REACTIVE 3699) HEPATITIS C ANTIBODY (test code NON-REACTIVE = 9345) INTERPRETATION HEPATITIS A: (NOTE) (test code = 2552) INTERPRETATION HEPATITIS B: (NOTE) (test code = 07374) INTERPRETATION HEPATITIS C: (NOTE) (test code = 56415) [id number] 00:00:00 Test Item Value Reference Range Interpretation Comments AMYLASE (test code = 2205) 32 U/L [id number] 00:00:00 Test Item Value Reference Range Interpretation Comments LIPASE (test code = 2058) 22 U/L [id number] 00:00:00 Test Item Value Reference Range Interpretation Comments LIPASE (test code = 2058) 22 U/L COMPREHENSIVE METABOLIC [id number] 00:00:00 Test Item Value Reference Range Interpretation Comments GLUCOSE (test code = 2217) 128 MG/DL BUN (test code = 2208) 26 MG/DL CREATININE (test code = 2214) 0.92 MG/DL eGFR AMER. (test code 81 ML/MIN/1.73 = 97609) eGFR NON- AMER. (test 70 ML/MIN/1.73 code = 48199) CALC BUN/CREAT (test code = 28 RATIO [...] code = 2219) 29 U/L COMPREHENSIVE METABOLIC [id number] 00:00:00 Test Item Value Reference Range Interpretation Comments GLUCOSE (test code = 2217) 128 MG/DL BUN (test code = 2208) 26 MG/DL CREATININE (test code = 2214) 0.92 MG/DL eGFR AMER. (test code 81 ML/MIN/1.73 = 23926) eGFR NON- AMER. (test 70 ML/MIN/1.73 code = 30670) CALC BUN/CREAT (test code = 28 RATIO [...] code = 2219) 29 U/L ACUTE HEPATITIS [id number] 00:00:00 Test Item Value Reference Range Interpretation Comments HEPATITIS A IgM (test code = NON-REACTIVE 22842) HEPATITIS B CORE IgM (test code NON-REACTIVE = 4644) HEPATITIS B SURF AG (test code = NON-REACTIVE 2738) HEPATITIS C ANTIBODY (test code NON-REACTIVE = 4675) INTERPRETATION HEPATITIS A: (NOTE) (test code = 2552) INTERPRETATION HEPATITIS B: (NOTE) (test code = 92755) INTERPRETATION HEPATITIS C: (NOTE) (test code = 47074) ACUTE HEPATITIS [id number] 00:00:00 Test Item Value Reference Range Interpretation Comments HEPATITIS A IgM (test code = NON-REACTIVE 93666) HEPATITIS B CORE IgM (test code NON-REACTIVE = 4644) HEPATITIS B SURF AG (test code = NON-REACTIVE 2738) HEPATITIS C ANTIBODY (test code NON-REACTIVE = 4675) INTERPRETATION HEPATITIS A: (NOTE) (test code = 2552) INTERPRETATION HEPATITIS B: (NOTE) (test code = 15368) INTERPRETATION HEPATITIS C: (NOTE) (test code = 02356) [id number] 00:00:00 Test Item Value Reference Range Interpretation Comments AMYLASE (test code = 2205) 32 U/L [id number] 00:00:00 Test Item Value Reference Range Interpretation Comments AMYLASE (test code = 2205) 32 U/L [id number] 00:00:00 Test Item Value Reference Range Interpretation Comments LIPASE (test code = 2058) 22 U/L [id number] 00:00:00 Test Item Value Reference Range Interpretation Comments LIPASE (test code = 2058) 22 U/L [id number] 00:00:00 Test Item Value Reference Range Interpretation Comments LIPASE (test code = 2058) 22 U/L [id number] 00:00:00 Test Item Value Reference Range Interpretation Comments TSH, THIRD GENERATION (test code 4.890 UIU/ML = 2821) [id number] 00:00:00 Test Item Value Reference Range Interpretation Comments TSH, THIRD GENERATION (test code 4.890 UIU/ML = 2821) [id number] 00:00:00 Test Item Value Reference Range Interpretation Comments TSH, THIRD GENERATION (test code 4.890 UIU/ML = 2821) COMPREHENSIVE METABOLIC [id number] 00:00:00 Test Item Value Reference Range Interpretation Comments GLUCOSE (test code = 2217) 121 MG/DL BUN (test code = 2208) 40 MG/DL CREATININE (test code = 2214) 1.48 MG/DL eGFR AMER. (test code 45 ML/MIN/1.73 = 27491) eGFR NON- AMER. (test 39 ML/MIN/1.73 code = 60822) CALC BUN/CREAT (test code = 27 RATIO [...] code = 2219) 20 U/L COMPREHENSIVE METABOLIC [id number] 00:00:00 Test Item Value Reference Range Interpretation Comments GLUCOSE (test code = 2217) 121 MG/DL BUN (test code = 2208) 40 MG/DL CREATININE (test code = 2214) 1.48 MG/DL eGFR AMER. (test code 45 ML/MIN/1.73 = 75288) eGFR NON- AMER. (test 39 ML/MIN/1.73 code = 18644) CALC BUN/CREAT (test code = 27 RATIO [...] ALT (test code = 2219) 20 U/L [id number] 00:00:00 Test Item Value Reference Range Interpretation Comments TSH, THIRD GENERATION (test code 4.890 UIU/ML = 2821) [id number] 00:00:00 Test Item Value Reference Range Interpretation Comments TSH, THIRD GENERATION (test code 4.890 UIU/ML = 2821) [id number] 00:00:00 Test Item Value Reference Range Interpretation Comments TSH, THIRD GENERATION (test code 4.890 UIU/ML = 2821) COMPREHENSIVE METABOLIC [id number] 00:00:00 Test Item Value Reference Range Interpretation Comments GLUCOSE (test code = 2217) 121 MG/DL BUN (test code = 2208) 40 MG/DL CREATININE (test code = 2214) 1.48 MG/DL eGFR AMER. (test code 45 ML/MIN/1.73 = 23345) eGFR NON- AMER. (test 39 ML/MIN/1.73 code = 63220) CALC BUN/CREAT (test code = 27 RATIO [...] code = 2219) 20 U/L COMPREHENSIVE METABOLIC [id number] 00:00:00 Test Item Value Reference Range Interpretation Comments GLUCOSE (test code = 2217) 121 MG/DL BUN (test code = 2208) 40 MG/DL CREATININE (test code = 2214) 1.48 MG/DL eGFR AMER. (test code 45 ML/MIN/1.73 = 44824) eGFR NON- AMER. (test 39 ML/MIN/1.73 code = 32494) CALC BUN/CREAT (test code = 27 RATIO [...] ALT (test code = 2219) 20 U/L [id number] 00:00:00 Test Item Value Reference Range Interpretation Comments TSH, THIRD GENERATION (test code 4.890 UIU/ML = 2821) [id number] 00:00:00 Test Item Value Reference Range Interpretation Comments TSH, THIRD GENERATION (test code 4.890 UIU/ML = 2821) COMPREHENSIVE METABOLIC [id number] 00:00:00 Test Item Value Reference Range Interpretation Comments GLUCOSE (test code = 2217) 121 MG/DL BUN (test code = 2208) 40 MG/DL CREATININE (test code = 2214) 1.48 MG/DL eGFR AMER. (test code 45 ML/MIN/1.73 = 61869) eGFR NON- AMER. (test 39 ML/MIN/1.73 code = 02878) CALC BUN/CREAT (test code = 27 RATIO [...] ALT (test code = 2219) 20 U/L [id number] 00:00:00 Test Item Value Reference Range Interpretation Comments TSH, THIRD GENERATION (test code 4.890 UIU/ML = 2821) [id number] 00:00:00 Test Item Value Reference Range Interpretation Comments TSH, THIRD GENERATION (test code 4.890 UIU/ML = 2821) [id number] 00:00:00 Test Item Value Reference Range Interpretation Comments TSH, THIRD GENERATION (test code 4.890 UIU/ML = 2821) COMPREHENSIVE METABOLIC [id number] 00:00:00 Test Item Value Reference Range Interpretation Comments GLUCOSE (test code = 2217) 121 MG/DL BUN (test code = 2208) 40 MG/DL CREATININE (test code = 2214) 1.48 MG/DL eGFR AMER. (test code 45 ML/MIN/1.73 = 57233) eGFR NON- AMER. (test 39 ML/MIN/1.73 code = 91413) CALC BUN/CREAT (test code = 27 RATIO [...] code = 2219) 20 U/L COMPREHENSIVE METABOLIC [id number] 00:00:00 Test Item Value Reference Range Interpretation Comments GLUCOSE (test code = 2217) 121 MG/DL BUN (test code = 2208) 40 MG/DL CREATININE (test code = 2214) 1.48 MG/DL eGFR AMER. (test code 45 ML/MIN/1.73 = 02720) eGFR NON- AMER. (test 39 ML/MIN/1.73 code = 95251) CALC BUN/CREAT (test code = 27 RATIO [...] (test code = 2219) 20 U/L LIPID [id number] 00:00:00 Test Item Value Reference Range Interpretation Comments CHOLESTEROL (test code = 2210) 261 MG/DL TRIGLYCERIDES (test code = 2232) 165 MG/DL HDL CHOLESTEROL (test code = 2220) 58 MG/DL CALC LDL CHOL (test code = 2237) 170 MG/DL RISK RATIO LDL/HDL (test code = 2.93 RATIO 2238) LIPID [id number] 00:00:00 Test Item Value Reference Range Interpretation Comments CHOLESTEROL (test code = 2210) 261 MG/DL TRIGLYCERIDES (test code = 2232) 165 MG/DL HDL CHOLESTEROL (test code = 2220) 58 MG/DL CALC LDL CHOL (test code = 2237) 170 MG/DL RISK RATIO LDL/HDL (test code = 2.93 RATIO 2238) CBC W/AUTO [id number] 00:00:00 Test Item Value Reference Range Interpretation [...] code = 1015) 378 K/UL CBC W/AUTO [id number] 00:00:00 Test Item Value Reference Range Interpretation [...] code = 1015) 378 K/UL CBC W/AUTO [id number] 00:00:00 Test Item Value Reference Range Interpretation [...] (test code = 1015) 378 K/UL HEMOGLOBIN [id number] 00:00:00 Test Item Value Reference Range Interpretation Comments HEMOGLOBIN A1c (test code = 87844) 6.4 % HEMOGLOBIN [id number] 00:00:00 Test Item Value Reference Range Interpretation Comments HEMOGLOBIN A1c (test code = 07908) 6.4 % HEMOGLOBIN [id number] 00:00:00 Test Item Value Reference Range Interpretation Comments HEMOGLOBIN A1c (test code = 73039) 6.4 % [id number] 00:00:00 Test Item Value Reference Range Interpretation Comments TSH (test code = 2821) 5.290 UIU/ML [id number] 00:00:00 Test Item Value Reference Range Interpretation Comments TSH (test code = 2821) 5.290 UIU/ML [id number] 00:00:00 Test Item Value Reference Range Interpretation Comments TSH (test code = 2821) 5.290 UIU/ML LIPID [id number] 00:00:00 Test Item Value Reference Range Interpretation Comments CHOLESTEROL (test code = 2210) 261 MG/DL TRIGLYCERIDES (test code = 2232) 165 MG/DL HDL CHOLESTEROL (test code = 2220) 58 MG/DL CALC LDL CHOL (test code = 2237) 170 MG/DL RISK RATIO LDL/HDL (test code = 2.93 RATIO 2238) LIPID [id number] 00:00:00 Test Item Value Reference Range Interpretation Comments CHOLESTEROL (test code = 2210) 261 MG/DL TRIGLYCERIDES (test code = 2232) 165 MG/DL HDL CHOLESTEROL (test code = 2220) 58 MG/DL CALC LDL CHOL (test code = 2237) 170 MG/DL RISK RATIO LDL/HDL (test code = 2.93 RATIO 2238) CBC W/AUTO [id number] 00:00:00 Test Item Value Reference Range Interpretation [...] code = 1015) 378 K/UL CBC W/AUTO [id number] 00:00:00 Test Item Value Reference Range Interpretation [...] code = 1015) 378 K/UL CBC W/AUTO [id number] 00:00:00 Test Item Value Reference Range Interpretation [...] (test code = 1015) 378 K/UL HEMOGLOBIN [id number] 00:00:00 Test Item Value Reference Range Interpretation Comments HEMOGLOBIN A1c (test code = 06270) 6.4 % HEMOGLOBIN [id number] 00:00:00 Test Item Value Reference Range Interpretation Comments HEMOGLOBIN A1c (test code = 61088) 6.4 % HEMOGLOBIN [id number] 00:00:00 Test Item Value Reference Range Interpretation Comments HEMOGLOBIN A1c (test code = 72656) 6.4 % [id number] 00:00:00 Test Item Value Reference Range Interpretation Comments TSH (test code = 2821) 5.290 UIU/ML [id number] 00:00:00 Test Item Value Reference Range Interpretation Comments TSH (test code = 2821) 5.290 UIU/ML [id number] 00:00:00 Test Item Value Reference Range Interpretation Comments TSH (test code = 2821) 5.290 UIU/ML LIPID [id number] 00:00:00 Test Item Value Reference Range Interpretation Comments CHOLESTEROL (test code = 2210) 261 MG/DL TRIGLYCERIDES (test code = 2232) 165 MG/DL HDL CHOLESTEROL (test code = 2220) 58 MG/DL CALC LDL CHOL (test code = 2237) 170 MG/DL RISK RATIO LDL/HDL (test code = 2.93 RATIO 2238) CBC W/AUTO [id number] 00:00:00 Test Item Value Reference Range Interpretation [...] code = 1015) 378 K/UL CBC W/AUTO [id number] 00:00:00 Test Item Value Reference Range Interpretation [...] (test code = 1015) 378 K/UL HEMOGLOBIN [id number] 00:00:00 Test Item Value Reference Range Interpretation Comments HEMOGLOBIN A1c (test code = 63854) 6.4 % HEMOGLOBIN [id number] 00:00:00 Test Item Value Reference Range Interpretation Comments HEMOGLOBIN A1c (test code = 36022) 6.4 % [id number] 00:00:00 Test Item Value Reference Range Interpretation Comments TSH (test code = 2821) 5.290 UIU/ML [id number] 00:00:00 Test Item Value Reference Range Interpretation Comments TSH (test code = 2821) 5.290 UIU/ML LIPID [id number] 00:00:00 Test Item Value Reference Range Interpretation Comments CHOLESTEROL (test code = 2210) 261 MG/DL TRIGLYCERIDES (test code = 2232) 165 MG/DL HDL CHOLESTEROL (test code = 2220) 58 MG/DL CALC LDL CHOL (test code = 2237) 170 MG/DL RISK RATIO LDL/HDL (test code = 2.93 RATIO 2238) LIPID [id number] 00:00:00 Test Item Value Reference Range Interpretation Comments CHOLESTEROL (test code = 2210) 261 MG/DL TRIGLYCERIDES (test code = 2232) 165 MG/DL HDL CHOLESTEROL (test code = 2220) 58 MG/DL CALC LDL CHOL (test code = 2237) 170 MG/DL RISK RATIO LDL/HDL (test code = 2.93 RATIO 2238) CBC W/AUTO [id number] 00:00:00 Test Item Value Reference Range Interpretation [...] code = 1015) 378 K/UL CBC W/AUTO [id number] 00:00:00 Test Item Value Reference Range Interpretation [...] code = 1015) 378 K/UL CBC W/AUTO [id number] 00:00:00 Test Item Value Reference Range Interpretation [...] (test code = 1015) 378 K/UL HEMOGLOBIN [id number] 00:00:00 Test Item Value Reference Range Interpretation Comments HEMOGLOBIN A1c (test code = 23482) 6.4 % HEMOGLOBIN [id number] 00:00:00 Test Item Value Reference Range Interpretation Comments HEMOGLOBIN A1c (test code = 61829) 6.4 % HEMOGLOBIN [id number] 00:00:00 Test Item Value Reference Range Interpretation Comments HEMOGLOBIN A1c (test code = 51804) 6.4 % [id number] 00:00:00 Test Item Value Reference Range Interpretation Comments TSH (test code = 2821) 5.290 UIU/ML [id number] 00:00:00 Test Item Value Reference Range Interpretation Comments TSH (test code = 2821) 5.290 UIU/ML [id number] 00:00:00 Test Item Value Reference Range Interpretation [...] code = 2821) 1.030 UIU/ML COMPREHENSIVE METABOLIC [id number] 00:00:00 Test Item Value Reference Range Interpretation Comments GLUCOSE (test code = 2217) 106 MG/DL BUN (test code = 2208) 23 MG/DL CREATININE (test code = 2214) 0.66 MG/DL eGFR AMER. (test code 114 ML/MIN/1.73 = 79153) eGFR NON- AMER. (test 99 ML/MIN/1.73 code = 57508) CALC BUN/CREAT (test code = 35 RATIO [...] code = 2219) 31 U/L COMPREHENSIVE METABOLIC [id number] 00:00:00 Test Item Value Reference Range Interpretation Comments GLUCOSE (test code = 2217) 106 MG/DL BUN (test code = 2208) 23 MG/DL CREATININE (test code = 2214) 0.66 MG/DL eGFR AMER. (test code 114 ML/MIN/1.73 = 11675) eGFR NON- AMER. (test 99 ML/MIN/1.73 code = 21114) CALC BUN/CREAT (test code = 35 RATIO [...] code = 2821) 0.335 UIU/ML COMPREHENSIVE METABOLIC [id number] 00:00:00 Test Item Value Reference Range Interpretation Comments GLUCOSE (test code = 2217) 106 MG/DL BUN (test code = 2208) 23 MG/DL CREATININE (test code = 2214) 0.66 MG/DL eGFR AMER. (test code 114 ML/MIN/1.73 = 73846) eGFR NON- AMER. (test 99 ML/MIN/1.73 code = 89287) CALC BUN/CREAT (test code = 35 RATIO [...] code = 2219) 31 U/L COMPREHENSIVE METABOLIC [id number] 00:00:00 Test Item Value Reference Range Interpretation Comments GLUCOSE (test code = 2217) 106 MG/DL BUN (test code = 2208) 23 MG/DL CREATININE (test code = 2214) 0.66 MG/DL eGFR AMER. (test code 114 ML/MIN/1.73 = 47943) eGFR NON- AMER. (test 99 ML/MIN/1.73 code = 93462) CALC BUN/CREAT (test code = 35 RATIO [...] code = 2821) 0.335 UIU/ML COMPREHENSIVE METABOLIC [id number] 00:00:00 Test Item Value Reference Range Interpretation Comments GLUCOSE (test code = 2217) 106 MG/DL BUN (test code = 2208) 23 MG/DL CREATININE (test code = 2214) 0.66 MG/DL eGFR AMER. (test code 114 ML/MIN/1.73 = 53298) eGFR NON- AMER. (test 99 ML/MIN/1.73 code = 44324) CALC BUN/CREAT (test code = 35 RATIO [...] code = 2821) 0.335 UIU/ML COMPREHENSIVE METABOLIC [id number] 00:00:00 Test Item Value Reference Range Interpretation Comments GLUCOSE (test code = 2217) 106 MG/DL BUN (test code = 2208) 23 MG/DL CREATININE (test code = 2214) 0.66 MG/DL eGFR AMER. (test code 114 ML/MIN/1.73 = 07497) eGFR NON- AMER. (test 99 ML/MIN/1.73 code = 34538) CALC BUN/CREAT (test code = 35 RATIO 223) SODIUM (test code = 2231) 138 MEQ/L [...] code = 2219) 31 U/L COMPREHENSIVE METABOLIC [id number] 00:00:00 Test Item Value Reference Range Interpretation Comments GLUCOSE (test code = 2217) 106 MG/DL BUN (test code = 2208) 23 MG/DL CREATININE (test code = 2214) 0.66 MG/DL eGFR AMER. (test code 114 ML/MIN/1.73 = 36705) eGFR NON- AMER. (test 99 ML/MIN/1.73 code = 85964) CALC BUN/CREAT (test code = 35 RATIO [...] code = 2821) 0.335 UIU/ML COMPREHENSIVE METABOLIC [id number] 00:00:00 Test Item Value Reference Range Interpretation Comments GLUCOSE (test code = 2217) 103 MG/DL BUN (test code = 2208) 15 MG/DL CREATININE (test code = 2214) 0.77 MG/DL eGFR AMER. (test code 101 ML/MIN/1.73 = 38162) eGFR NON- AMER. (test 87 ML/MIN/1.73 code = 60277) CALC BUN/CREAT (test code = 19 RATIO [...] code = 2219) 24 U/L COMPREHENSIVE METABOLIC [id number] 00:00:00 Test Item Value Reference Range Interpretation Comments GLUCOSE (test code = 2217) 103 MG/DL BUN (test code = 2208) 15 MG/DL CREATININE (test code = 2214) 0.77 MG/DL eGFR AMER. (test code 101 ML/MIN/1.73 = 24902) eGFR NON- AMER. (test 87 ML/MIN/1.73 code = 63803) CALC BUN/CREAT (test code = 19 RATIO [...] code = 2821) 0.424 UIU/ML COMPREHENSIVE METABOLIC [id number] 00:00:00 Test Item Value Reference Range Interpretation Comments GLUCOSE (test code = 2217) 103 MG/DL BUN (test code = 2208) 15 MG/DL CREATININE (test code = 2214) 0.77 MG/DL eGFR AMER. (test code 101 ML/MIN/1.73 = 74334) eGFR NON- AMER. (test 87 ML/MIN/1.73 code = 03525) CALC BUN/CREAT (test code = 19 RATIO [...] code = 2219) 24 U/L COMPREHENSIVE METABOLIC [id number] 00:00:00 Test Item Value Reference Range Interpretation Comments GLUCOSE (test code = 2217) 103 MG/DL BUN (test code = 2208) 15 MG/DL CREATININE (test code = 2214) 0.77 MG/DL eGFR AMER. (test code 101 ML/MIN/1.73 = 95496) eGFR NON- AMER. (test 87 ML/MIN/1.73 code = 76286) CALC BUN/CREAT (test code = 19 RATIO [...] CALCULATED T7 (FTI) (test code = 1.37 1740) TSH (test code = 2821) 0.424 UIU/ML THYROID II PROFILE (T3U, T4, T7, TSH)[id number] 00:00:00 Test Item Value Reference Range Interpretation Comments T3 UPTAKE (test code = 2817) 35.1 % T4 (THYROXINE) (test code = 3.9 UG/DL 2819) CALCULATED T7 (FTI) (test code = 1.37 2820) TSH (test code = 2821) 0.424 UIU/ML COMPREHENSIVE METABOLIC [id number] 00:00:00 Test Item Value Reference Range Interpretation Comments GLUCOSE (test code = 2217) 103 MG/DL BUN (test code = 2208) 15 MG/DL CREATININE (test code = 2214) 0.77 MG/DL eGFR AMER. (test code 101 ML/MIN/1.73 = 97521) eGFR NON- AMER. (test 87 ML/MIN/1.73 code = 96106) CALC BUN/CREAT (test code = 19 RATIO [...] code = 2821) 0.424 UIU/ML COMPREHENSIVE METABOLIC [id number] 00:00:00 Test Item Value Reference Range Interpretation Comments GLUCOSE (test code = 2217) 103 MG/DL BUN (test code = 2208) 15 MG/DL CREATININE (test code = 2214) 0.77 MG/DL eGFR AMER. (test code 101 ML/MIN/1.73 = 66304) eGFR NON- AMER. (test 87 ML/MIN/1.73 code = 82853) CALC BUN/CREAT (test code = 19 RATIO [...] code = 2219) 24 U/L COMPREHENSIVE METABOLIC [id number] 00:00:00 Test Item Value Reference Range Interpretation Comments GLUCOSE (test code = 2217) 103 MG/DL BUN (test code = 2208) 15 MG/DL CREATININE (test code = 2214) 0.77 MG/DL eGFR AMER. (test code 101 ML/MIN/1.73 = 60190) eGFR NON- AMER. (test 87 ML/MIN/1.73 code = 94793) CALC BUN/CREAT (test code = 19 RATIO [...] (test code = 2821) 0.424 UIU/ML CULTURE, [id number] 00:00:00 Test Item Value Reference Range Interpretation Comments CULTURE, URINE (test SPECIMEN NUMBER: code = 36551) [id number] CULTURE, [id number] 00:00:00 Test Item Value Reference Range Interpretation Comments CULTURE, URINE (test SPECIMEN NUMBER: code = 89834) [id number] CULTURE, [id number] 00:00:00 Test Item Value Reference Range Interpretation Comments CULTURE, URINE (test SPECIMEN NUMBER: code = 21536) [id number] CULTURE, [id number] 00:00:00 Test Item Value Reference Range Interpretation Comments CULTURE, URINE (test SPECIMEN NUMBER: code = 31539) [id number] CULTURE, [id number] 00:00:00 Test Item Value Reference Range Interpretation Comments CULTURE, URINE (test SPECIMEN NUMBER: code = 48146) [id number] CULTURE, [id number] 00:00:00 Test Item Value Reference Range Interpretation Comments CULTURE, URINE (test SPECIMEN NUMBER: code = 52158) [id number] CULTURE, [id number] 00:00:00 Test Item Value Reference Range Interpretation Comments CULTURE, URINE (test SPECIMEN NUMBER: code = 74731) [id number] CULTURE, [id number] 00:00:00 Test Item Value Reference Range Interpretation Comments CULTURE, URINE (test SPECIMEN NUMBER: code = 92192) [id number] CULTURE, [id number] 00:00:00 Test Item Value Reference Range Interpretation Comments CULTURE, URINE (test SPECIMEN NUMBER: code = 18098) [id number] CULTURE, [id number] 00:00:00 Test Item Value Reference Range Interpretation Comments CULTURE, URINE (test SPECIMEN NUMBER: code = 73926) [id number] CULTURE, [id number] 00:00:00 Test Item Value Reference Range Interpretation Comments CULTURE, URINE (test SPECIMEN NUMBER: code = 74846) [id number] CULTURE, [id number] 00:00:00 Test Item Value Reference Range Interpretation Comments CULTURE, URINE (test SPECIMEN NUMBER: code = 24613) [id number] CULTURE, [id number] 00:00:00 Test Item Value Reference Range Interpretation Comments CULTURE, URINE (test SPECIMEN NUMBER: code = 79490) [id number] CULTURE, [id number] 00:00:00 Test Item Value Reference Range Interpretation Comments CULTURE, URINE (test SPECIMEN NUMBER: code = 23523) [id number]
--- NOTE | 2022-12-24 10:32 | ER ---
Nurse's Notes [facility] Name: Jaimie Amanda Age: 62 yrs Sex: Female : 1960 Arrival Date: 12/24/2022 Time: 09:52 Bed IW6 [facility] MD: Diagnosis: Assessment: 12/24 10:12 Reassessment: pt left from [facility]. iw ED Course: 09:55 Patient arrived in ED. mg5 10:05 [facility] kb 10:05 Jey White MD is Attending Physician. kb 10:31 Zo Zapata MD is Attending Physician. sp3 10:35 Therese Logan RN is Primary Nurse. iw Administered Medications: No medications were administered Outcome: 10:12 Patient left the ED. iw Signatures: Emma Hussein FNP-C FNP-Therese Guthrie RN RN iw Zo Zapata MD MD sp3 Dana Dos Santos mg5 Corrections: (The following items were deleted from the chart) 10:32 10:31 Patient left the ED. iw iw 12/25 07:19 10 10:35 Patient left the ED. iw iw
== END 2022-12-24 10:35 | disposition left against medical advice (07) ==
LOC: ER 09:52
DX: Z02.9 Encounter for administrative examinations, unspecified (principal)

== ENCOUNTER 2022-12-24 23:45 | Emergency (ER) | payer OTHER ==
--- OUTSIDE RECORDS SUMMARY | 2022-12-24 23:55 | XMS REPORT | Continuity of Care Document ---
:1960 Author Organization [facility] t Address [address] [place] [address] [place] [id number] Care Team Providers Name Role Phone [facility] Primary Care Physician MATT SIMPSON Attending Clinician Unavailable MATT SIMPSON Attending Clinician Unavailable Doctor Unassigned, [place] Attending Clinician Unavailable WALLY KRISHNAMURTHY Attending Clinician Unavailable Natacha Brewster Attending Clinician Payers Payer Name Policy Type Policy Number Effective Date Expiration Date Sarina castelan [facility] [id number] 2017 00:00:00 PLUS Problems This patient has [...] Cente r Alcohol intake 2016-05-01 2016-05-01 [address] [facility] 00:00:00 00:00:00 non-drinker of Medical nter alcohol (finding) Sex Ass[birth year] At [birth year] [facility] 00:00:00 00:00:00 [facility] Smoking Status Start Date Stop Date Source Smokes tobacco daily 2016-05-01 00:00:00 [facility] Medications Ordered Filled Start [...] [facility]: nightly. [address] OXcarbazepi 2017-0 Yes 600mg Q.[id number] Take [address] [facility] [address] ne 2-23 [id number] [facility] (TRILEPTAL) 10:23: 3D mouth 3 Med ical 600 [facility] 59 (three) Center tablet times daily. PARoxetine 2017-0 Yes 40mg QD Take [address] (PAXIL) 40 2-23 by [facility] 10:23: nightly. [address] 2017-0 Yes 600mg Q.[id number] Take [address] ne 2-23 [id number] [facility] (TRILEPTAL) 10:23: 3D mouth 3 Med ical 600 [facility] 59 (three) Center tablet times daily. PARoxetine 2017-0 Yes 40mg QD Take [address] (PAXIL) 40 2-23 [facility] 10:23: nightly. [address] 2017-0 Yes 600mg Q.[id number] Take [address] ne 2-23 [id number] [facility] (TRILEPTAL) 10:23: 3D mouth 3 Med ical 600 [facility] 59 (three) Center tablet times daily. PARoxetine 2017-0 Yes 40mg QD Take [address] (PAXIL) 40 2-23 [facility] 10:23: nightly. [address] 2017-0 Yes 600mg Q.[id number] Take [address] ne 2-23 [id number] [facility] (TRILEPTAL) 10:23: 3D mouth 3 Med ical 600 [facility] 59 (three) Center tablet times daily. PARoxetine 2017-0 Yes 40mg QD Take [address] (PAXIL) 40 2-23 [facility] 10:23: nightly. [address] 2017-0 Yes 600mg Q.[id number] Take [address] ne 2-23 [id number] [facility] (TRILEPTAL) 10:23: 3D mouth 3 Med ical 600 [facility] 59 (three) Center tablet times daily. PARoxetine 2017-0 Yes 40mg QD Take [address] (PAXIL) 40 2-23 [facility] 10:23: nightly. [address] 2017-0 Yes 600mg Q.[id number] Take [address] ne 2-23 [id number] [facility] by [facility] (TRILEPTAL) 10:23: 3D mouth 3 Med ical 600 [facility] 59 (three) Center tablet times daily. OXcarbazepi 2017-0 Yes 600mg Q.[id number] Take [address] ne 2-23 [id number] [facility] (TRILEPTAL) 10:23: 3D mouth 3 Med ical 600 [facility] 59 (three) Center tablet times daily. PARoxetine 2017-0 Yes 40mg QD Take [address] (PAXIL) 40 2-23 by [facility] 10:23: nightly. [address] OXcarbazepi 2017-0 Yes 600mg Q.[id number] Take [address] ne 2-23 [id number] [facility] (TRILEPTAL) 10:23: 3D mouth 3 Med ical 600 [facility] 59 (three) Center tablet times daily. PARoxetine 2017-0 Yes 40mg QD Take [address] (PAXIL) 40 2-23 by [facility] 10:23: nightly. [address] OXcarbazepi 2017-0 Yes 600mg Q.[id number] Take [address] ne 2-23 [id number] [facility] (TRILEPTAL) 10:23: 3D mouth 3 Med ical 600 [facility] 59 (three) Center tablet times daily. PARoxetine 2017-0 Yes 40mg QD Take [address] (PAXIL) 40 2-23 by [facility] 10:23: nightly. [address] PARoxetine 2017-0 Yes 40mg QD Take [address] (PAXIL) 40 2-23 by [facility] 10:23: nightly. [address] OXcarbazepi 2017-0 Yes 600mg Q.[id number] Take [address] ne 2-23 [id number] [facility] (TRILEPTAL) 10:23: 3D mouth 3 Med ical 600 [facility] 59 (three) Center tablet times daily. PARoxetine 2017-0 Yes 40mg QD Take [address] (PAXIL) 40 2-23 by [facility] 10:23: nightly. [address] OXcarbazepi 2017-0 Yes 600mg Q.[id number] Take [address] ne 2-23 [id number] [facility] (TRILEPTAL) 10:23: 3D mouth 3 Med ical 600 [facility] 59 (three) Center tablet times daily. PARoxetine 2017-0 Yes 40mg QD Take [address] (PAXIL) 40 2-23 by [facility] 10:23: nightly. [address] 2017-0 Yes 600mg Q.[id number] Take [address] ne 2-23 [id number] mg [facility] (TRILEPTAL) 10:23: 3D mouth 3 Med ical 600 MG 59 (three) Center tablet times daily. PARoxetine 2017-0 Yes 40mg QD Take [address] (PAXIL) 40 2-23 by [facility] 10:23: nightly. [address] 2017-0 Yes 600mg Q.[id number] Take [address] ne 2-23 [id number] [facility] (TRILEPTAL) 10:23: 3D mouth 3 Med ical 600 MG 59 (three) Center tablet times daily. PARoxetine 2017-0 Yes 40mg QD Take [address] (PAXIL) 40 2-23 by [facility] 10:23: nightly. [address] 2017-0 Yes 600mg Q.[id number] Take [address] ne 2-23 [id number] [facility] (TRILEPTAL) 10:23: 3D mouth 3 Med ical 600 MG 59 (three) Center tablet times daily. PARoxetine 2017-0 Yes 40mg QD Take [address] (PAXIL) 40 2-23 by [facility] 10:23: nightly. [address] OXcarbazepi 2017-0 Yes 600mg Q.[id number] Take [address] ne 2-23 [id number] [facility] (TRILEPTAL) 10:23: 3D mouth 3 Med ical 600 MG 59 (three) Center tablet times daily. PARoxetine 2017-0 Yes 40mg QD Take [address] (PAXIL) 40 2-23 by [facility] 10:23: nightly. [address] 2017-0 Yes 600mg Q.[id number] Take [address] ne 2-23 [id number] [facility] (TRILEPTAL) 10:23: 3D mouth 3 Med ical 600 MG 59 (three) Center tablet times daily. PARoxetine 2017-0 Yes 40mg QD Take [address] (PAXIL) 40 2-23 by [facility] 10:23: nightly. [facility] [address] OXcarbazepi 2017-0 Yes 600mg Q.[id number] Take [address] ne 2-23 [id number] mg by [facility] (TRILEPTAL) 10:23: 3D mouth 3 Med ical 600 MG 59 (three) Center tablet times daily. OXcarbazepi 2017-0 Yes 600mg Q.[id number] Take [address] ne 2-23 [id number] mg [facility] (TRILEPTAL) 10:23: 3D mouth 3 Med ical 600 MG 59 (three) Center tablet times daily. PARoxetine 2017-0 Yes 40mg QD Take [address] (PAXIL) 40 2-23 by [facility] 10:23: nightly. [address] OXcarbazepi 2017-0 Yes 600mg Q.[id number] Take [address] ne 2-23 [id number] mg [facility] (TRILEPTAL) 10:23: 3D mouth 3 Med ical 600 [facility] 59 (three) Center tablet times daily. PARoxetine 2017-0 Yes 40mg QD Take [address] (PAXIL) 40 2-23 by [facility] 10:23: nightly. [facility] [address] OXcarbazepi 2017-0 Yes 600mg Q.[id number] Take [address] ne 2-23 [id number] mg by [facility] (TRILEPTAL) 10:23: 3D mouth 3 Med ical 600 [facility] 59 (three) Center tablet times daily. PARoxetine 2017-0 Yes 40mg QD Take [address] (PAXIL) 40 2-23 by [facility] 10:23: nightly. [facility] [address] PARoxetine 2017-0 Yes 40mg QD Take [address] (PAXIL) 40 2-23 by [facility] 10:23: nightly. [address] OXcarbazepi 2017-0 Yes 600mg Q.[id number] Take [address] ne 2-23 [id number] mg [facility] (TRILEPTAL) 10:23: 3D mouth 3 Med ical 600 MG 59 (three) Center tablet times daily. PARoxetine 2017-0 Yes 40mg QD Take [address] (PAXIL) 40 2-23 by [facility] 10:23: nightly. [facility] [address] OXcarbazepi 2017-0 Yes 600mg Q.[id number] Take [address] ne 2-23 [id number] mg by [facility] (TRILEPTAL) 10:23: 3D mouth 3 Med ical 600 MG 59 (three) Center tablet times daily. PARoxetine 2017-0 Yes 40mg QD Take [address] (PAXIL) 40 2-23 by [facility] 10:23: nightly. [facility] Q.[id number] Take [address] ne 2-23 [id number] [facility] (TRILEPTAL) 10:23: 3D mouth 3 Med ical 600 MG 59 (three) Center tablet times daily. PARoxetine 2017-0 Yes 40mg QD Take [address] (PAXIL) 40 2-23 by [facility] 10:23: nightly. [facility] 600[facility] Q.[id number] Take [address] ne 2-23 [id number] [facility] (TRILEPTAL) 10:23: 3D mouth 3 Med ical 600 MG 59 (three) Center tablet times daily. PARoxetine 2017-0 Yes 40mg QD Take [address] (PAXIL) 40 2-23 by [facility] 10:23: nightly. [facility] [address] OXcarbazepi 2017-0 Yes 600mg Q.[id number] Take [address] ne 2-23 [id number] mg by [facility] (TRILEPTAL) 10:23: 3D mouth 3 Med ical 600 MG 59 (three) Center tablet times daily. PARoxetine 2017-0 Yes 40mg QD Take [address] (PAXIL) 40 2-23 by [facility] 10:23: nightly. [facility] Yes 600mg Q.[id number] Take [address] ne 2-23 [id number] [facility] by [facility] (TRILEPTAL) 10:23: 3D mouth 3 Med ical 600 [facility] 59 (three) Center tablet times daily. PARoxetine 2017-0 Yes 40mg QD Take [address] (PAXIL) 40 2-23 by mouth [facility] 10:23: nightly. [address] OXcarbazepi 2017-0 Yes 600mg Q.[id number] Take [address] ne 2-23 [id number] mg by [facility] (TRILEPTAL) 10:23: 3D mouth 3 Med ical 600 MG 59 (three) Center tablet times daily. OXcarbazepi 2017-0 Yes 600mg Q.[id number] Take [address] ne 2-23 [id number] mg by [facility] (TRILEPTAL) 10:23: 3D mouth 3 Med ical 600 MG 59 (three) Center tablet times daily. PARoxetine 2017-0 Yes 40mg QD Take [address] (PAXIL) 40 2-23 by [facility] 10:23: nightly. [address] OXcarbazepi 2017-0 Yes 600mg Q.[id number] Take [address] ne 2-23 [id number] mg by [facility] (TRILEPTAL) 10:23: 3D mouth 3 Med ical 600 MG 59 (three) Center tablet times daily. PARoxetine 2017-0 Yes 40mg QD Take [address] (PAXIL) 40 2-23 by [facility] 10:23: nightly. [address] OXcarbazepi 2017-0 Yes 600mg Q.[id number] Take [address] ne 2-23 [id number] mg by [facility] (TRILEPTAL) 10:23: 3D mouth 3 Med ical 600 MG 59 (three) Center tablet times daily. PARoxetine 2017-0 Yes 40mg QD Take [address] (PAXIL) 40 2-23 by [facility] 10:23: nightly. [address] PARoxetine 2017-0 Yes 40mg QD Take [address] (PAXIL) 40 2-23 by [facility] 10:23: nightly. [address] OXcarbazepi 2017-0 Yes 600mg Q.[id number] Take [address] ne 2-23 [id number] mg by [facility] (TRILEPTAL) 10:23: 3D mouth 3 Med ical 600 MG 59 (three) Center tablet times daily. PARoxetine 2017-0 Yes 40mg QD Take [address] (PAXIL) 40 2-23 by mouth [facility] tablet 10:23: nightly. [facility] [address] OXcarbazepi 2017-0 Yes 600mg Q.[id number] Take [address] ne 2-23 [id number] mg by [facility] (TRILEPTAL) 10:23: 3D mouth 3 Med ical 600 MG 59 (three) Center tablet times daily. PARoxetine 2017-0 Yes 40mg QD Take [address] (PAXIL) 40 2-23 by [facility] 10:23: nightly. [address] 2017-0 Yes 600mg Q.[id number] Take [address] ne 2-23 [id number] mg by [facility] (TRILEPTAL) 10:23: 3D mouth 3 Med ical 600 MG 59 (three) Center tablet times daily. PARoxetine 2017-0 Yes 40mg QD Take [address] (PAXIL) 40 2-23 by [facility] tablet 10:23: nightly. [facility] Yes 600mg Q.[id number] Take [address] ne 2-23 [id number] mg by [facility] (TRILEPTAL) 10:23: 3D mouth 3 Med ical 600 MG 59 (three) Center tablet times daily. PARoxetine 2017-0 Yes 40mg QD Take [address] (PAXIL) 40 2-23 by mouth [facility] tablet 10:23: nightly. [facility] [address] OXcarbazepi 2017-0 Yes 600mg Q.[id number] Take [address] ne 2-23 [id number] mg by [facility] (TRILEPTAL) 10:23: 3D mouth 3 Med ical 600 MG 59 (three) Center tablet times daily. PARoxetine 2017-0 Yes 40mg QD Take [address] (PAXIL) 40 2-23 by [facility] 10:23: nightly. [facility] OXcarbazepi 2017-0 Yes 600mg Q.[id number] Take [address] ne 2-23 [id number] [facility] (TRILEPTAL) 10:23: 3D mouth 3 Med ical 600 MG 59 (three) Center tablet times daily. PARoxetine 2017-0 Yes 40mg QD Take [address] (PAXIL) 40 2-23 by [facility] 10:23: nightly. [facility] OXcarbazepi 2017-0 Yes 600mg Q.[id number] Take [address] ne 2-23 [id number] mg by [facility] (TRILEPTAL) 10:23: 3D mouth 3 Med ical 600 MG 59 (three) Center tablet times daily. PARoxetine 2017-0 Yes 40mg QD Take [address] (PAXIL) 40 2-23 by [facility] 10:23: nightly. [facility] OXcarbazepi 2017-0 Yes 600mg Q.[id number] Take [address] ne 2-23 [id number] mg by [facility] (TRILEPTAL) 10:23: 3D mouth 3 Med ical 600 MG 59 (three) Center tablet times daily. OXcarbazepi 2017-0 Yes 600mg Q.[id number] Take [address] ne 2-23 [id number] mg by [facility] (TRILEPTAL) 10:23: 3D mouth 3 Med ical 600 MG 59 (three) Center tablet times daily. PARoxetine 2017-0 Yes 40mg QD Take [address] (PAXIL) 40 2-23 by [facility] 10:23: nightly. [facility] OXcarbazepi 2017-0 Yes 600mg Q.[id number] Take [address] ne 2-23 [id number] mg by [facility] (TRILEPTAL) 10:23: 3D mouth 3 Med ical 600 MG 59 (three) Center tablet times daily. PARoxetine 2017-0 Yes 40mg QD Take [address] (PAXIL) 40 2-23 by [facility] 10:23: nightly. [facility] OXcarbazepi 2017-0 Yes 600mg Q.[id number] Take [address] ne 2-23 [id number] mg by [facility] (TRILEPTAL) 10:23: 3D mouth 3 Med ical 600 MG 59 (three) Center tablet times daily. PARoxetine 2017-0 Yes 40mg QD Take [address] (PAXIL) 40 2-23 by mouth [facility] tablet 10:23: nightly. [facility] [address] OXcarbazepi 2017-0 Yes 600mg Q.[id number] Take [address] ne 2-23 [id number] mg by [facility] (TRILEPTAL) 10:23: 3D mouth 3 Med ical 600 MG 59 (three) Center tablet times daily. PARoxetine 2017-0 Yes 40mg QD Take [address] (PAXIL) 40 2-23 by mouth [facility] tablet 10:23: nightly. [facility] [address] PARoxetine 2017-0 Yes 40mg QD Take [address] (PAXIL) 40 2-23 by [facility] 10:23: nightly. [address] OXcarbazepi 2017-0 Yes 600mg Q.[id number] Take [address] ne 2-23 [id number] mg by [facility] (TRILEPTAL) 10:23: 3D mouth 3 Med ical 600 MG 59 (three) Center tablet times daily. PARoxetine 2017-0 Yes 40mg QD Take [address] (PAXIL) 40 2-23 by mouth [facility] 10:23: nightly. [address] OXcarbazepi 2017-0 Yes 600mg Q.[id number] Take [address] ne 2-23 [id number] mg by [facility] (TRILEPTAL) 10:23: 3D mouth 3 Med ical 600 MG 59 (three) Center tablet times daily. PARoxetine 2017-0 Yes 40mg QD Take [address] (PAXIL) 40 2-23 by [facility] 10:23: nightly. [address] OXcarbazepi 2017-0 Yes 600mg Q.[id number] Take [address] ne 2-23 [id number] mg by [facility] (TRILEPTAL) 10:23: 3D mouth 3 Med ical 600 MG 59 (three) Center tablet times daily. PARoxetine 2017-0 Yes 40mg QD Take [address] (PAXIL) 40 2-23 by [facility] 10:23: nightly. [address] OXcarbazepi 2017-0 Yes 600mg Q.[id number] Take [address] ne 2-23 [id number] [facility] (TRILEPTAL) 10:23: 3D mouth 3 Med ical 600 MG 59 (three) Center tablet times daily. PARoxetine 2017-0 Yes 40mg QD Take [address] (PAXIL) 40 2-23 by [facility] 10:23: nightly. [address] OXcarbazepi 2017-0 Yes 600mg Q.[id number] Take [address] ne 2-23 [id number] mg by [facility] (TRILEPTAL) 10:23: 3D mouth 3 Med ical 600 MG 59 (three) Center tablet times daily. PARoxetine 2017-0 Yes 40mg QD Take [address] (PAXIL) 40 2-23 by [facility] 10:23: nightly. [address] OXcarbazepi 2017-0 Yes 600mg Q.[id number] Take [address] ne 2-23 [id number] mg by [facility] (TRILEPTAL) 10:23: 3D mouth 3 Med ical 600 MG 59 (three) Center tablet times daily. PARoxetine 2017-0 Yes 40mg QD Take [address] (PAXIL) 40 2-23 by [facility] 10:23: nightly. [address] OXcarbazepi 2017-0 Yes 600mg Q.[id number] Take [address] ne 2-23 [id number] mg [facility] (TRILEPTAL) 10:23: 3D mouth 3 Med ical 600 MG 59 (three) Center tablet times daily. PARoxetine 2017-0 Yes 40mg QD Take [address] (PAXIL) 40 2-23 by [facility] 10:23: nightly. [address] OXcarbazepi 2017-0 Yes 600mg Q.[id number] Take [address] ne 2-23 [id number] mg [facility] (TRILEPTAL) 10:23: 3D mouth 3 Med ical 600 MG 59 (three) Center tablet times daily. OXcarbazepi 2017-0 Yes 600mg Q.[id number] Take [address] ne 2-23 [id number] [facility] by [facility] (TRILEPTAL) 10:23: 3D mouth 3 Med ical 600 MG 59 (three) Center tablet times daily. PARoxetine 2017-0 Yes 40mg QD Take [address] (PAXIL) 40 2-23 by [facility] 10:23: nightly. [address] OXcarbazepi 2017-0 Yes 600mg Q.[id number] Take [address] ne 2-23 [id number] mg by [facility] (TRILEPTAL) 10:23: 3D mouth 3 Med ical 600 [facility] 59 (three) Center tablet times daily. PARoxetine 2017-0 Yes 40mg QD Take [address] (PAXIL) 40 2-23 by [facility] 10:23: nightly. [address] OXcarbazepi 2017-0 Yes 600mg Q.[id number] Take [address] ne 2-23 [id number] mg by [facility] (TRILEPTAL) 10:23: 3D mouth 3 Med ical 600 MG 59 (three) Center tablet times daily. PARoxetine 2017-0 Yes 40mg QD Take [address] (PAXIL) 40 2-23 by [facility] 10:23: nightly. [address] PARoxetine 2017-0 Yes 40mg QD Take [address] (PAXIL) 40 2-23 by [facility] 10:23: nightly. [address] OXcarbazepi 2017-0 Yes 600mg Q.[id number] Take [address] ne 2-23 [id number] [facility] by [facility] (TRILEPTAL) 10:23: 3D mouth 3 Med ical 600 [facility] 59 (three) Center tablet times daily. PARoxetine 2017-0 Yes 40mg QD Take [address] (PAXIL) 40 2-23 by [facility] 10:23: nightly. [address] OXcarbazepi 2017-0 Yes 600mg Q.[id number] Take [address] ne 2-23 [id number] [facility] (TRILEPTAL) 10:23: 3D mouth [...] Goal Plan of Care Note [code = 09131-1] Goal Plan of Care Note [code = 47685-4] Goal Plan of Care Note [code = 29117-6] Goal Plan of Care Note [code = 82778-5] Goal Plan of Care Note [code = 35185-3] Goal Plan of Care Note [code = 08367-1] Goal Plan of Care Note [code = 79558-4] Goal Plan of Care Note [code = 26922-4] Goal Plan of Care Note [code = 25566-0] Goal Plan of Care Note [code = 74800-7] Goal Plan of Care Note [code = 24378-3] Goal Plan of Care Note [code = 32144-6] Goal Plan of Care Note [code = 65039-3] Goal Plan of Care Note [code = 36480-4] Goal Plan of Care Note [code = 25566-0] Goal Plan of Care Note [code = 13521-9] Goal Plan of Care Note [code = 79277-0] Goal Plan of Care Note [code = 75882-5] Goal Plan of Care Note [code = 24900-7] Goal Plan of Care Note [code = 73121-8] Goal Plan of Care Note [code = 52950-8] Goal Plan of Care Note [code = 10145-9] Goal Plan of Care Note [code = 39970-6] Goal Plan of Care Note [code = 32025-4] Goal Plan of Care Note [code = 31498-1] Goal Plan of Care Note [code = 57821-8] Goal Plan of Care Note [code = 59234-0] Goal Plan of Care Note [code = 12358-2] Goal Plan of Care Note [code = 97968-0] Goal Plan of Care Note [code = 78527-5] Goal Plan of Care Note [code = 70671-6] Goal Plan of Care Note [code = 49355-9] Goal Plan of Care Note [code = 83913-8] Goal Plan of Care Note [code = 98793-9] Goal Plan of Care Note [code = 57940-1] Goal Plan of Care Note [code = 00329-1] Goal Plan of Care Note [code = 41419-5] Goal Plan of Care Note [code = 30252-5] Goal Plan of Care Note [code = 10129-8] Goal Plan of Care Note [code = 90560-4] Goal Plan of Care Note [code = 67885-6] Goal Plan of Care Note [code = 13528-4] Goal Plan of Care Note [code = 22389-6] Goal Plan of Care Note [code = 15478-0] Goal Plan of Care Note [code = 99379-9] Goal Plan of Care Note [code = 69806-6] Goal Plan of Care Note [code = 08283-3] Goal Plan of Care Note [code = 74093-5] Goal Plan of Care Note [code = 73680-6] Goal Plan of Care Note [code = 77874-5] Goal Plan of Care Note [code = 12829-2] Goal Plan of Care Note [code = 58658-0] Goal Plan of Care Note [code = 12522-7] Goal Plan of Care Note [code = 81195-6] Goal Plan of Care Note [code = 07882-5] Goal Plan of Care Note [code = 93759-8] Goal Plan of Care Note [code = 07834-3] Goal Plan of Care Note [code = 04490-9] Goal Plan of Care Note [code = 87789-2] Goal Plan of Care Note [code = 23040-0] Goal Plan of Care Note [code = 94992-7] Goal Plan of Care Note [code = 28867-2] Goal Plan of Care Note [code = 78712-2] Goal Plan of Care Note [code = 41483-5] Goal Plan of Care Note [code = 85322-8] Goal Plan of Care Note [code = 19746-5] Goal Plan of Care Note [code = 73527-1] Goal Plan of Care Note [code = 58993-3] Goal Plan of Care Note [code = 19583-3] Goal Plan of Care Note [code = 67907-5] Goal Plan of Care Note [code = 55037-8] Goal Plan of Care Note [code = 73314-2] Goal Plan of Care Note [code = 77675-0] Goal Plan of Care Note [code = 03487-3] Goal Plan of Care Note [code = 46528-8] Goal Plan of Care Note [code = 90263-5] Goal Plan of Care Note [code = 29588-6] Goal Plan of Care Note [code = 62239-5] Goal Plan of Care Note [code = 40096-3] Goal Plan of Care Note [code = 22801-9] Goal Plan of Care Note [code = 92664-4] Goal Plan of Care Note [code = 75936-8] Goal Plan of Care Note [code = 17842-8] Goal Plan of Care Note [code = 52400-9] Goal Plan of Care Note [code = 97679-6] Goal Plan of Care Note [code = 35862-2] Goal Plan of Care Note [code = 86485-6] Goal Plan of Care Note [code = 33458-7] Goal Plan of Care Note [code = 95976-0] Goal Plan of Care Note [code = 06046-3] Goal Plan of Care Note [code = 09670-8] Goal Plan of Care Note [code = 78045-0] Goal Plan of Care Note [code = 10779-8] Goal Plan of Care Note [code = 50437-3] Goal Plan of Care Note [code = 18675-2] Goal Plan of Care Note [code = 86616-9] Goal Plan of Care Note [code = 45869-2] Goal Plan of Care Note [code = 72860-3] Goal Plan of Care Note [code = 79669-8] Goal Plan of Care Note [code = 05768-0] Goal Plan of Care Note [code = 26569-1] Goal Plan of Care Note [code = 44920-0] Goal Plan of Care Note [code = 32054-7] Goal Plan of Care Note [code = 42055-8] Goal Plan of Care Note [code = 52460-0] Goal Plan of Care Note [code = 68323-3] Goal Plan of Care Note [code = 70856-7] Goal Plan of Care Note [code = 39047-5] Goal Plan of Care Note [code = 59793-1] Goal Plan of Care Note [code = 55049-1] Goal Plan of Care Note [code = 48314-8] Goal Plan of Care Note [code = 17691-4] Goal Plan of Care Note [code = 22653-6] Goal Plan of Care Note [code = 67720-2] Goal Plan of Care Note [code = 83984-3] Goal Plan of Care Note [code = 68686-9] Goal Plan of Care Note [code = 83509-7] Goal Plan of Care Note [code = 74465-5] Goal Plan of Care Note [code = 73212-3] Goal Plan of Care Note [code = 49326-5] Goal Plan of Care Note [code = 11190-7] Goal Plan of Care Note [code = 82877-5] Goal Plan of Care Note [code = 65818-1] Goal Plan of Care Note [code = 70417-3] Goal Plan of Care Note [code = 80317-0] Goal Plan of Care Note [code = 08953-4] Goal Plan of Care Note [code = 87184-2] Goal Plan of Care Note [code = 70475-5] Goal Plan of Care Note [code = 40632-5] Goal Plan of Care Note [code = 39960-6] Goal Plan of Care Note [code = 52123-0] Goal Plan of Care Note [code = 22235-2] Goal Plan of Care Note [code = 60545-3] Goal Plan of Care Note [code = 67426-1] Goal Plan of Care Note [code = 30486-2] Goal Plan of Care Note [code = 47579-3] Goal Plan of Care Note [code = 72286-3] Goal Plan of Care Note [code = 49684-6] Goal Plan of Care Note [code = 41520-4] Goal Plan of Care Note [code = 88656-8] Goal Plan of Care Note [code = 71571-6] Goal Plan of Care Note [code = 60590-6] Goal Plan of Care Note [code = 47554-3] Goal Plan of Care Note [code = 06575-1] Goal Plan of Care Note [code = 57700-5] Goal Plan of Care Note [code = 29265-7] Goal Plan of Care Note [code = 57046-5] Goal Plan of Care Note [code = 49716-7] Goal Plan of Care Note [code = 84888-0] Goal Plan of Care Note [code = 99622-9] Goal Plan of Care Note [code = 37807-3] Goal Plan of Care Note [code = 74889-5] Goal Plan of Care Note [code = 64341-4] Goal Plan of Care Note [code = 32173-3] Goal Plan of Care Note [code = 02901-0] Goal Plan of Care Note [code = 60879-1] Goal Plan of Care Note [code = 26345-6] Goal Plan of Care Note [code = 43479-8] Goal Plan of Care Note [code = 95331-1] Goal Plan of Care Note [code = 27195-8] Goal Plan of Care Note [code = 98295-6] Goal Plan of Care Note [code = 64974-3] Goal Plan of Care Note [code = 60182-1] Goal Plan of Care Note [code = 85819-6] Goal Plan of Care Note [code = 26328-5] Goal Plan of Care Note [code = 83668-8] Goal Plan of Care Note [code = 90469-2] Goal Plan of Care Note [code = 61783-4] Goal Plan of Care Note [code = 44906-1] Goal Plan of Care Note [code = 87681-7] Goal Plan of Care Note [code = 05222-0] Goal Plan of Care Note [code = 23425-8] Goal Plan of Care Note [code = 83877-6] Goal Plan of Care Note [code = 25931-4] Goal Plan of Care Note [code = 22695-8] Goal Plan of Care Note [code = 68750-9] Goal Plan of Care Note [code = 31808-2] Goal Plan of Care Note [code = 02272-5] Goal Plan of Care Note [code = 20808-7] Goal Plan of Care Note [code = 16555-3] Goal Plan of Care Note [code = 84398-7] Goal Plan of Care Note [code = 65725-7] Goal Plan of Care Note [code = 88929-3] Goal Plan of Care Note [code = 73335-5] Goal Plan of Care Note [code = 80160-3] Goal Plan of Care Note [code = 68973-9] Goal Plan of Care Note [code = 98685-2] Goal Plan of Care Note [code = 89662-9] Goal Plan of Care Note [code = 57860-1] Goal Plan of Care Note [code = 76931-6] Goal Plan of Care Note [code = 44653-8] Goal Plan of Care Note [code = 11430-3] Goal Plan of Care Note [code = 84871-8] Goal Plan of Care Note [code = 67911-1] Goal Plan of Care Note [code = 70184-1] Goal Plan of Care Note [code = 64161-7] Goal Plan of Care Note [code = 54474-1] Goal Plan of Care Note [code = 45750-2] Goal Plan of Care Note [code = 21798-2] Goal Plan of Care Note [code = 93703-2] Goal Plan of Care Note [code = 75780-9] Goal Plan of Care Note [code = 46841-5] Goal Plan of Care Note [code = 14031-6] Goal Plan of Care Note [code = 31593-9] Goal Plan of Care Note [code = 97929-4] Goal Plan of Care Note [code = 09395-3] Goal Plan of Care Note [code = 53931-5] Goal Plan of Care Note [code = 58557-6] Encounters Start End Encounter Admission Attending Care Care Encounter Source Date/Time Date/Time Type Type Clinicians Facility Department ID 2021-06-01 Outpatient [facility] [id number] [place] 01:36:29 [id number] [facility] 2022-11-25 2022-11-25 Outpatient SFA SFA [id number] Cristian 14:11:37 14:11:37 0919 F [place] 2022-05-24 2022-05-24 Outpatient SFA SFA [id number] 023 Cristian 10:36:59 10:36:59 0318 F Jerman 2022-02-11 2022-02-11 Outpatient SFA SFA [id number] 022 Cristian 09:04:48 09:04:48 1206 F [place] 2022-02-10 2022-02-10 Outpatient SFA SFA [id number] 022 Cristian 09:29:34 09:29:34 1205 F Jerman 2022-02-10 2022-02-10 Outpatient [id number]- [id number] 0b 8o29w0-6 00:00:00 00:00:00 Visit 4089-4cab 089-4cab-9 -8bj1-y3x bf5-m0j700 851lrwe12 bafa93 2022-01-10 2022-01-10 Outpatient SFA SFA [id number] 022 Cristian 09:16:14 09:16:14 1104 F Jerman 2022-01-10 2022-01-10 Outpatient i9sabpy4- [id number] f2 accaa6-a 00:00:00 00:00:00 Visit aca9-4c83 ca9-4c83-a -r2ub-il5 7eb-bc13f3 8d1k195p0 f032f9 2021-12-19 2021-12-19 Outpatient LYDIA SFA 07849-3 022 Cristian 16:11:31 16:11:31 1013 F Jerman 2021-12-19 2021-12-19 Outpatient [id number]- [id number] 466cae-a 00:00:00 00:00:00 Visit u516-619t 770-441f-a -adae-62b amelia-62bace hamck31je fd81af 2021-09-17 2021-09-17 Outpatient zwy2blpv- [id number] aa e3ojos-0 00:00:00 00:00:00 Visit 935a-4f50 35a-4f50-b -o79c-d3f 77d-c2ba85 [id number] 1264a6 2020-08-03 2020-08-03 Outpatient MATT VÁSQUEZ [facility] [id number] [facility] 10:00:00 10:00:00 MATT SIMPSON [facility] 2020-07-25 2020-07-25 Orders Doctor ABE [id number] 00:00:00 00:00:00 Only Unassigned, BK 350.1.13.10 [place] [facility] 4.2.7.2.686 [id number] 2019-09-26 2019-09-26 Outpatient Bertin KRISHNAMURTHY [facility] [id number] Univers 16:00:00 16:00:00 WALLY [facility] 2018-10-21 2018-10-21 [facility] [id number] [id number] 00:00:00 00:00:00 Natacha Nguyen 350.1.13.10 Ade 4.2.7.2.686 [place] [id number] [facility] 204 Building Results Test Description Test Time Test Comments Results Result Comments Source [facility] TH[facility] 2022-05-26 02:57:49 Test Item Value Reference Range Interpretation Comme nts TSH, THIRD GENERATION (test code = 2821) 6.350 UIU/ML 0.400-4.100 H LIPID [id number] 01:09:34 Test Item Value Reference Range Interpretation [...] MOREINFORMATION , SEE CLIENT ANNOUNCE MENT AT [email or web address] RISK RATIO LDL/HDL 2.73 RATIO <3.22 [facility] has important (test code = 2238) pathology staff changes effecti ve 05/07/2022. New pathology staff will provide uninter rupted, excellent patie nt care and clinical consultation. S ee URL: [email or web address] UNLES S OTHERWISE INDIC ATED, ALL TESTING PER FORMED AT CLINICAL [facility] [employer] FORMERLY [facility], [facility]. [address] [place] [address] ISIDRA SUH DIRECTOR: Andrew WHITLEY CONNOR NUMBER [id number] CAP ACCREDITATION N O. [id number] HEMOGLOBIN [id number] 03:17:24 Test Item Value Reference Range Interpretation Comments HEMOGLOBIN A1c (test 6.4 % 4.2-5.6 H AMERIC AN DIABETES code = 98168) ASSOCIATION [employer] FOR HGB A1C: PREDIABETES/INC REASED [...] TESTING OR LABORATORY C ONSULTATION. TSH, THIRD [id number] 05:15:49 Test Item Value Reference Range Interpretation Comments TSH, THIRD GENERATION (test code 2.080 UIU/ML 0.400-4.100 = 2821) HEMOGLOBIN [id number] 03:46:00 Test Item Value Reference Range Interpretation Comments HEMOGLOBIN A1c (test 6.6 % 4.2-5.6 H AMERIC AN DIABETES code = 06258) ASSOCIATION [employer] FOR HGB A1C: PREDIABETES/INC REASED [...] INDICATED, ALL TESTING PER FORMED ATCLINICAL PATH [facility], [facility]. [address] [place] [address] LABORATORY DIRE CTOR: DIANA RUSS M.D. CLIA NUMBER [id number] [facility] [place]. [id number] LIPID [id number] 02:59:52 Test Item Value Reference Range Interpretation [...] MOREINFORMATION , SEE CLIENT ANNOUNCE MENT AT [email or web address] RISK RATIO LDL/HDL 4.02 RATIO <3.22 H (test code = 2238) [id number] 00:00:00 Test Item Value Reference Range Interpretation Comments TSH, THIRD GENERATION (test code 2.080 UIU/ML = 2821) [id number] 00:00:00 Test Item Value Reference Range Interpretation Comments TSH, THIRD GENERATION (test code 2.080 UIU/ML = 2821) [id number] 00:00:00 Test Item Value Reference Range Interpretation Comments TSH, THIRD GENERATION (test code 2.080 UIU/ML = 2821) LIPID [id number] 00:00:00 Test Item Value Reference Range Interpretation Comments CHOLESTEROL (test code = 2210) 292 MG/DL TRIGLYCERIDES (test code = 2232) 184 MG/DL HDL CHOLESTEROL (test code = 2220) 51 MG/DL CALC LDL CHOL (test code = 2237) 205 MG/DL RISK RATIO LDL/HDL (test code = 4.02 RATIO 2238) LIPID [id number] 00:00:00 Test Item Value Reference Range Interpretation Comments CHOLESTEROL (test code = 2210) 292 MG/DL TRIGLYCERIDES (test code = 2232) 184 MG/DL HDL CHOLESTEROL (test code = 2220) 51 MG/DL CALC LDL CHOL (test code = 2237) 205 MG/DL RISK RATIO LDL/HDL (test code = 4.02 RATIO 2238) HEMOGLOBIN [id number] 00:00:00 Test Item Value Reference Range Interpretation Comments HEMOGLOBIN A1c (test code = 24421) 6.6 % HEMOGLOBIN [id number] 00:00:00 Test Item Value Reference Range Interpretation Comments HEMOGLOBIN A1c (test code = 85642) 6.6 % HEMOGLOBIN [id number] 00:00:00 Test Item Value Reference Range Interpretation Comments HEMOGLOBIN A1c (test code = 61256) 6.6 % [id number] 00:00:00 Test Item Value Reference Range Interpretation Comments TSH, THIRD GENERATION (test code 2.080 UIU/ML = 2821) [id number] 00:00:00 Test Item Value Reference Range Interpretation Comments TSH, THIRD GENERATION (test code 2.080 UIU/ML = 2821) [id number] 00:00:00 Test Item Value Reference Range Interpretation Comments TSH, THIRD GENERATION (test code 2.080 UIU/ML = 2821) LIPID [id number] 00:00:00 Test Item Value Reference Range Interpretation Comments CHOLESTEROL (test code = 2210) 292 MG/DL TRIGLYCERIDES (test code = 2232) 184 MG/DL HDL CHOLESTEROL (test code = 2220) 51 MG/DL CALC LDL CHOL (test code = 2237) 205 MG/DL RISK RATIO LDL/HDL (test code = 4.02 RATIO 2238) LIPID [id number] 00:00:00 Test Item Value Reference Range Interpretation Comments CHOLESTEROL (test code = 2210) 292 MG/DL TRIGLYCERIDES (test code = 2232) 184 MG/DL HDL CHOLESTEROL (test code = 2220) 51 MG/DL CALC LDL CHOL (test code = 2237) 205 MG/DL RISK RATIO LDL/HDL (test code = 4.02 RATIO 2238) HEMOGLOBIN [id number] 00:00:00 Test Item Value Reference Range Interpretation Comments HEMOGLOBIN A1c (test code = 29917) 6.6 % HEMOGLOBIN [id number] 00:00:00 Test Item Value Reference Range Interpretation Comments HEMOGLOBIN A1c (test code = 35940) 6.6 % HEMOGLOBIN [id number] 00:00:00 Test Item Value Reference Range Interpretation Comments HEMOGLOBIN A1c (test code = 98790) 6.6 % [id number] 00:00:00 Test Item Value Reference Range Interpretation Comments TSH, THIRD GENERATION (test code 2.080 UIU/ML = 2821) [id number] 00:00:00 Test Item Value Reference Range Interpretation Comments TSH, THIRD GENERATION (test code 2.080 UIU/ML = 2821) LIPID [id number] 00:00:00 Test Item Value Reference Range Interpretation Comments CHOLESTEROL (test code = 2210) 292 MG/DL TRIGLYCERIDES (test code = 2232) 184 MG/DL HDL CHOLESTEROL (test code = 2220) 51 MG/DL CALC LDL CHOL (test code = 2237) 205 MG/DL RISK RATIO LDL/HDL (test code = 4.02 RATIO 2238) HEMOGLOBIN [id number] 00:00:00 Test Item Value Reference Range Interpretation Comments HEMOGLOBIN A1c (test code = 94549) 6.6 % HEMOGLOBIN [id number] 00:00:00 Test Item Value Reference Range Interpretation Comments HEMOGLOBIN A1c (test code = 43439) 6.6 % [id number] 00:00:00 Test Item Value Reference Range Interpretation Comments TSH, THIRD GENERATION (test code 2.080 UIU/ML = 2821) [id number] 00:00:00 Test Item Value Reference Range Interpretation Comments TSH, THIRD GENERATION (test code 2.080 UIU/ML = 2821) [id number] 00:00:00 Test Item Value Reference Range Interpretation Comments TSH, THIRD GENERATION (test code 2.080 UIU/ML = 2821) LIPID [id number] 00:00:00 Test Item Value Reference Range Interpretation Comments CHOLESTEROL (test code = 2210) 292 MG/DL TRIGLYCERIDES (test code = 2232) 184 MG/DL HDL CHOLESTEROL (test code = 2220) 51 MG/DL CALC LDL CHOL (test code = 2237) 205 MG/DL RISK RATIO LDL/HDL (test code = 4.02 RATIO 2238) LIPID [id number] 00:00:00 Test Item Value Reference Range Interpretation Comments CHOLESTEROL (test code = 2210) 292 MG/DL TRIGLYCERIDES (test code = 2232) 184 MG/DL HDL CHOLESTEROL (test code = 2220) 51 MG/DL CALC LDL CHOL (test code = 2237) 205 MG/DL RISK RATIO LDL/HDL (test code = 4.02 RATIO 2238) HEMOGLOBIN [id number] 00:00:00 Test Item Value Reference Range Interpretation Comments HEMOGLOBIN A1c (test code = 36754) 6.6 % HEMOGLOBIN [id number] 00:00:00 Test Item Value Reference Range Interpretation Comments HEMOGLOBIN A1c (test code = 00038) 6.6 % HEMOGLOBIN [id number] 00:00:00 Test Item Value Reference Range Interpretation Comments HEMOGLOBIN A1c (test code = 02666) 6.6 % COMPREHENSIVE METABOLIC [id number] 00:00:00 Test Item Value Reference Range Interpretation Comments GLUCOSE (test code = 2217) 131 MG/DL BUN (test code = 2208) 13 MG/DL CREATININE (test code = 2214) 0.65 MG/DL eGFR AMER. (test code 113 ML/MIN/1.73 = 84467) eGFR NON- AMER. (test 97 ML/MIN/1.73 code = 58478) CALC BUN/CREAT (test code = 20 RATIO [...] (test code = 2219) 23 U/L HEMOGLOBIN [id number] 00:00:00 Test Item Value Reference Range Interpretation Comments HEMOGLOBIN A1c (test code = 76983) 6.8 % HEMOGLOBIN [id number] 00:00:00 Test Item Value Reference Range Interpretation Comments HEMOGLOBIN A1c (test code = 17315) 6.8 % HEMOGLOBIN [id number] 00:00:00 Test Item Value Reference Range Interpretation Comments HEMOGLOBIN A1c (test code = 32948) 6.8 % LIPID [id number] 00:00:00 Test Item Value Reference Range Interpretation Comments CHOLESTEROL (test code = 2210) 303 MG/DL TRIGLYCERIDES (test code = 2232) 191 MG/DL HDL CHOLESTEROL (test code = 2220) 61 MG/DL CALC LDL CHOL (test code = 2237) 205 MG/DL RISK RATIO LDL/HDL (test code = 3.36 RATIO 2238) LIPID [id number] 00:00:00 Test Item Value Reference Range Interpretation Comments CHOLESTEROL (test code = 2210) 303 MG/DL TRIGLYCERIDES (test code = 2232) 191 MG/DL HDL CHOLESTEROL (test code = 2220) 61 MG/DL CALC LDL CHOL (test code = 2237) 205 MG/DL RISK RATIO LDL/HDL (test code = 3.36 RATIO 2238) [id number] 00:00:00 Test Item Value Reference Range Interpretation Comments TSH, THIRD GENERATION (test code 0.769 UIU/ML = 2821) [id number] 00:00:00 Test Item Value Reference Range Interpretation Comments TSH, THIRD GENERATION (test code 0.769 UIU/ML = 2821) [id number] 00:00:00 Test Item Value Reference Range Interpretation Comments TSH, THIRD GENERATION (test code 0.769 UIU/ML = 2821) COMPREHENSIVE METABOLIC [id number] 00:00:00 Test Item Value Reference Range Interpretation Comments GLUCOSE (test code = 2217) 131 MG/DL BUN (test code = 2208) 13 MG/DL CREATININE (test code = 2214) 0.65 MG/DL eGFR AMER. (test code 113 ML/MIN/1.73 = 62014) eGFR NON- AMER. (test 97 ML/MIN/1.73 code = 19328) CALC BUN/CREAT (test code = 20 RATIO [...] code = 2219) 23 U/L COMPREHENSIVE METABOLIC [id number] 00:00:00 Test Item Value Reference Range Interpretation Comments GLUCOSE (test code = 2217) 131 MG/DL BUN (test code = 2208) 13 MG/DL CREATININE (test code = 2214) 0.65 MG/DL eGFR AMER. (test code 113 ML/MIN/1.73 = 14171) eGFR NON- AMER. (test 97 ML/MIN/1.73 code = 29314) CALC BUN/CREAT (test code = 20 RATIO [...] (test code = 2219) 23 U/L HEMOGLOBIN [id number] 00:00:00 Test Item Value Reference Range Interpretation Comments HEMOGLOBIN A1c (test code = 46701) 6.8 % HEMOGLOBIN [id number] 00:00:00 Test Item Value Reference Range Interpretation Comments HEMOGLOBIN A1c (test code = 40290) 6.8 % HEMOGLOBIN [id number] 00:00:00 Test Item Value Reference Range Interpretation Comments HEMOGLOBIN A1c (test code = 60568) 6.8 % LIPID [id number] 00:00:00 Test Item Value Reference Range Interpretation Comments CHOLESTEROL (test code = 2210) 303 MG/DL TRIGLYCERIDES (test code = 2232) 191 MG/DL HDL CHOLESTEROL (test code = 2220) 61 MG/DL CALC LDL CHOL (test code = 2237) 205 MG/DL RISK RATIO LDL/HDL (test code = 3.36 RATIO 2238) LIPID [id number] 00:00:00 Test Item Value Reference Range Interpretation Comments CHOLESTEROL (test code = 2210) 303 MG/DL TRIGLYCERIDES (test code = 2232) 191 MG/DL HDL CHOLESTEROL (test code = 2220) 61 MG/DL CALC LDL CHOL (test code = 2237) 205 MG/DL RISK RATIO LDL/HDL (test code = 3.36 RATIO 2238) [id number] 00:00:00 Test Item Value Reference Range Interpretation Comments TSH, THIRD GENERATION (test code 0.769 UIU/ML = 2821) [id number] 00:00:00 Test Item Value Reference Range Interpretation Comments TSH, THIRD GENERATION (test code 0.769 UIU/ML = 2821) [id number] 00:00:00 Test Item Value Reference Range Interpretation Comments TSH, THIRD GENERATION (test code 0.769 UIU/ML = 2821) COMPREHENSIVE METABOLIC [id number] 00:00:00 Test Item Value Reference Range Interpretation Comments GLUCOSE (test code = 2217) 131 MG/DL BUN (test code = 2208) 13 MG/DL CREATININE (test code = 2214) 0.65 MG/DL eGFR AMER. (test code 113 ML/MIN/1.73 = 00679) eGFR NON- AMER. (test 97 ML/MIN/1.73 code = 73518) CALC BUN/CREAT (test code = 20 RATIO [...] code = 2219) 23 U/L COMPREHENSIVE METABOLIC [id number] 00:00:00 Test Item Value Reference Range Interpretation Comments GLUCOSE (test code = 2217) 131 MG/DL BUN (test code = 2208) 13 MG/DL CREATININE (test code = 2214) 0.65 MG/DL eGFR AMER. (test code 113 ML/MIN/1.73 = 70198) eGFR NON- AMER. (test 97 ML/MIN/1.73 code = 65875) CALC BUN/CREAT (test code = 20 RATIO [...] (test code = 2219) 23 U/L HEMOGLOBIN [id number] 00:00:00 Test Item Value Reference Range Interpretation Comments HEMOGLOBIN A1c (test code = 57160) 6.8 % HEMOGLOBIN [id number] 00:00:00 Test Item Value Reference Range Interpretation Comments HEMOGLOBIN A1c (test code = 80317) 6.8 % LIPID [id number] 00:00:00 Test Item Value Reference Range Interpretation Comments CHOLESTEROL (test code = 2210) 303 MG/DL TRIGLYCERIDES (test code = 2232) 191 MG/DL HDL CHOLESTEROL (test code = 2220) 61 MG/DL CALC LDL CHOL (test code = 2237) 205 MG/DL RISK RATIO LDL/HDL (test code = 3.36 RATIO 2238) [id number] 00:00:00 Test Item Value Reference Range Interpretation Comments TSH, THIRD GENERATION (test code 0.769 UIU/ML = 2821) [id number] 00:00:00 Test Item Value Reference Range Interpretation Comments TSH, THIRD GENERATION (test code 0.769 UIU/ML = 2821) COMPREHENSIVE METABOLIC [id number] 00:00:00 Test Item Value Reference Range Interpretation Comments GLUCOSE (test code = 2217) 131 MG/DL BUN (test code = 2208) 13 MG/DL CREATININE (test code = 2214) 0.65 MG/DL eGFR AMER. (test code 113 ML/MIN/1.73 = 35390) eGFR NON- AMER. (test 97 ML/MIN/1.73 code = 85374) CALC BUN/CREAT (test code = 20 RATIO [...] (test code = 2219) 23 U/L HEMOGLOBIN [id number] 00:00:00 Test Item Value Reference Range Interpretation Comments HEMOGLOBIN A1c (test code = 29477) 6.8 % HEMOGLOBIN [id number] 00:00:00 Test Item Value Reference Range Interpretation Comments HEMOGLOBIN A1c (test code = 82426) 6.8 % HEMOGLOBIN [id number] 00:00:00 Test Item Value Reference Range Interpretation Comments HEMOGLOBIN A1c (test code = 90337) 6.8 % LIPID [id number] 00:00:00 Test Item Value Reference Range Interpretation Comments CHOLESTEROL (test code = 2210) 303 MG/DL TRIGLYCERIDES (test code = 2232) 191 MG/DL HDL CHOLESTEROL (test code = 2220) 61 MG/DL CALC LDL CHOL (test code = 2237) 205 MG/DL RISK RATIO LDL/HDL (test code = 3.36 RATIO 2238) LIPID [id number] 00:00:00 Test Item Value Reference Range Interpretation Comments CHOLESTEROL (test code = 2210) 303 MG/DL TRIGLYCERIDES (test code = 2232) 191 MG/DL HDL CHOLESTEROL (test code = 2220) 61 MG/DL CALC LDL CHOL (test code = 2237) 205 MG/DL RISK RATIO LDL/HDL (test code = 3.36 RATIO 2238) [id number] 00:00:00 Test Item Value Reference Range Interpretation Comments TSH, THIRD GENERATION (test code 0.769 UIU/ML = 2821) [id number] 00:00:00 Test Item Value Reference Range Interpretation Comments TSH, THIRD GENERATION (test code 0.769 UIU/ML = 2821) [id number] 00:00:00 Test Item Value Reference Range Interpretation Comments TSH, THIRD GENERATION (test code 0.769 UIU/ML = 2821) COMPREHENSIVE METABOLIC [id number] 00:00:00 Test Item Value Reference Range Interpretation Comments GLUCOSE (test code = 2217) 131 MG/DL BUN (test code = 2208) 13 MG/DL CREATININE (test code = 2214) 0.65 MG/DL eGFR AMER. (test code 113 ML/MIN/1.73 = 68651) eGFR NON- AMER. (test 97 ML/MIN/1.73 code = 31229) CALC BUN/CREAT (test code = 20 RATIO [...] THYROX. BIND. CAPAC. (test code 1.1 = 75796) T4 (THYROXINE) (test code = 4.3 UG/DL 2819) CORRECTED T4 (FTI) (test code = 3.9 UG/DL 2820) TSH, THIRD GENERATION (test 18.900 UIU/ML code = 2821) HEMOGLOBIN [id number] 00:00:00 Test Item Value Reference Range Interpretation Comments HEMOGLOBIN A1c (test code = 91832) 6.6 % HEMOGLOBIN [id number] 00:00:00 Test Item Value Reference Range Interpretation Comments HEMOGLOBIN A1c (test code = 22428) 6.6 % HEMOGLOBIN [id number] 00:00:00 Test Item Value Reference Range Interpretation Comments HEMOGLOBIN A1c (test code = 67505) 6.6 % LIPID [id number] 00:00:00 Test Item Value Reference Range Interpretation Comments CHOLESTEROL (test code = 2210) 261 MG/DL TRIGLYCERIDES (test code = 2232) 159 MG/DL HDL CHOLESTEROL (test code = 2220) 82 MG/DL CALC LDL CHOL (test code = 2237) 150 MG/DL RISK RATIO LDL/HDL (test code = 1.83 RATIO 2238) LIPID [id number] 00:00:00 Test Item Value Reference Range Interpretation Comments CHOLESTEROL (test code = 2210) 261 MG/DL TRIGLYCERIDES (test code = 2232) 159 MG/DL HDL CHOLESTEROL (test code = 2220) 82 MG/DL CALC LDL CHOL (test code = 2237) 150 MG/DL RISK RATIO LDL/HDL (test code = 1.83 RATIO 2238) COMPREHENSIVE METABOLIC [id number] 00:00:00 Test Item Value Reference Range Interpretation Comments GLUCOSE (test code = 2217) 144 MG/DL BUN (test code = 2208) 15 MG/DL CREATININE (test code = 2214) 0.85 MG/DL eGFR AMER. (test code 87 ML/MIN/1.73 = 89651) eGFR NON- AMER. (test 75 ML/MIN/1.73 code = 66552) CALC BUN/CREAT (test code = 18 RATIO [...] code = 2219) 50 U/L COMPREHENSIVE METABOLIC [id number] 00:00:00 Test Item Value Reference Range Interpretation Comments GLUCOSE (test code = 2217) 144 MG/DL BUN (test code = 2208) 15 MG/DL CREATININE (test code = 2214) 0.85 MG/DL eGFR AMER. (test code 87 ML/MIN/1.73 = 19568) eGFR NON- AMER. (test 75 ML/MIN/1.73 code = 30397) CALC BUN/CREAT (test code = 18 RATIO [...] THYROX. BIND. CAPAC. (test code 1.1 = 70236) T4 (THYROXINE) (test code = 4.3 UG/DL 2819) CORRECTED T4 (FTI) (test code = 3.9 UG/DL 2820) TSH, THIRD GENERATION (test 18.900 UIU/ML code = 2821) THYROID II PROFILE (T3U, T4, T7, TSH)[id number] 00:00:00 Test Item Value Reference Range Interpretation Comments T-UPTAKE (test code = 2816) 30.2 % THYROX. BIND. CAPAC. (test code 1.1 = 73436) T4 (THYROXINE) (test code = 4.3 UG/DL 2819) CORRECTED T4 (FTI) (test code = 3.9 UG/DL 2820) TSH, THIRD GENERATION (test 18.900 UIU/ML code = 2821) HEMOGLOBIN [id number] 00:00:00 Test Item Value Reference Range Interpretation Comments HEMOGLOBIN A1c (test code = 97805) 6.6 % HEMOGLOBIN [id number] 00:00:00 Test Item Value Reference Range Interpretation Comments HEMOGLOBIN A1c (test code = 63872) 6.6 % HEMOGLOBIN [id number] 00:00:00 Test Item Value Reference Range Interpretation Comments HEMOGLOBIN A1c (test code = 96724) 6.6 % LIPID [id number] 00:00:00 Test Item Value Reference Range Interpretation Comments CHOLESTEROL (test code = 2210) 261 MG/DL TRIGLYCERIDES (test code = 2232) 159 MG/DL HDL CHOLESTEROL (test code = 2220) 82 MG/DL CALC LDL CHOL (test code = 2237) 150 MG/DL RISK RATIO LDL/HDL (test code = 1.83 RATIO 2238) LIPID [id number] 00:00:00 Test Item Value Reference Range Interpretation Comments CHOLESTEROL (test code = 2210) 261 MG/DL TRIGLYCERIDES (test code = 2232) 159 MG/DL HDL CHOLESTEROL (test code = 2220) 82 MG/DL CALC LDL CHOL (test code = 2237) 150 MG/DL RISK RATIO LDL/HDL (test code = 1.83 RATIO 2238) COMPREHENSIVE METABOLIC [id number] 00:00:00 Test Item Value Reference Range Interpretation Comments GLUCOSE (test code = 2217) 144 MG/DL BUN (test code = 2208) 15 MG/DL CREATININE (test code = 2214) 0.85 MG/DL eGFR AMER. (test code 87 ML/MIN/1.73 = 13635) eGFR NON- AMER. (test 75 ML/MIN/1.73 code = 54484) CALC BUN/CREAT (test code = 18 RATIO [...] code = 2219) 50 U/L COMPREHENSIVE METABOLIC [id number] 00:00:00 Test Item Value Reference Range Interpretation Comments GLUCOSE (test code = 2217) 144 MG/DL BUN (test code = 2208) 15 MG/DL CREATININE (test code = 2214) 0.85 MG/DL eGFR AMER. (test code 87 ML/MIN/1.73 = 71780) eGFR NON- AMER. (test 75 ML/MIN/1.73 code = 02056) CALC BUN/CREAT (test code = 18 RATIO [...] THYROX. BIND. CAPAC. (test code 1.1 = 02405) T4 (THYROXINE) (test code = 4.3 UG/DL 2818) CORRECTED T4 (FTI) (test code = 3.9 UG/DL 2820) TSH, THIRD GENERATION (test 18.900 UIU/ML code = 2821) THYROID II PROFILE (T3U, T4, T7, TSH)[id number] 00:00:00 Test Item Value Reference Range Interpretation Comments T-UPTAKE (test code = 2817) 30.2 % THYROX. BIND. CAPAC. (test code 1.1 = 67236) T4 (THYROXINE) (test code = 4.3 UG/DL 2819) CORRECTED T4 (FTI) (test code = 3.9 UG/DL 2820) TSH, THIRD GENERATION (test 18.900 UIU/ML code = 2821) HEMOGLOBIN [id number] 00:00:00 Test Item Value Reference Range Interpretation Comments HEMOGLOBIN A1c (test code = 46853) 6.6 % HEMOGLOBIN [id number] 00:00:00 Test Item Value Reference Range Interpretation Comments HEMOGLOBIN A1c (test code = 58796) 6.6 % LIPID [id number] 00:00:00 Test Item Value Reference Range Interpretation Comments CHOLESTEROL (test code = 2210) 261 MG/DL TRIGLYCERIDES (test code = 2232) 159 MG/DL HDL CHOLESTEROL (test code = 2220) 82 MG/DL CALC LDL CHOL (test code = 2237) 150 MG/DL RISK RATIO LDL/HDL (test code = 1.83 RATIO 2238) COMPREHENSIVE METABOLIC [id number] 00:00:00 Test Item Value Reference Range Interpretation Comments GLUCOSE (test code = 2217) 144 MG/DL BUN (test code = 2208) 15 MG/DL CREATININE (test code = 2214) 0.85 MG/DL eGFR AMER. (test code 87 ML/MIN/1.73 = 30282) eGFR NON- AMER. (test 75 ML/MIN/1.73 code = 03144) CALC BUN/CREAT (test code = 18 RATIO [...] THYROX. BIND. CAPAC. (test code 1.1 = 40435) T4 (THYROXINE) (test code = 4.3 UG/DL 281) CORRECTED T4 (FTI) (test code = 3.9 UG/DL 2820) TSH, THIRD GENERATION (test 18.900 UIU/ML code = 2821) HEMOGLOBIN [id number] 00:00:00 Test Item Value Reference Range Interpretation Comments HEMOGLOBIN A1c (test code = 51444) 6.6 % HEMOGLOBIN [id number] 00:00:00 Test Item Value Reference Range Interpretation Comments HEMOGLOBIN A1c (test code = 81218) 6.6 % HEMOGLOBIN [id number] 00:00:00 Test Item Value Reference Range Interpretation Comments HEMOGLOBIN A1c (test code = 65463) 6.6 % LIPID [id number] 00:00:00 Test Item Value Reference Range Interpretation Comments CHOLESTEROL (test code = 2210) 261 MG/DL TRIGLYCERIDES (test code = 2232) 159 MG/DL HDL CHOLESTEROL (test code = 2220) 82 MG/DL CALC LDL CHOL (test code = 2237) 150 MG/DL RISK RATIO LDL/HDL (test code = 1.83 RATIO 2238) LIPID [id number] 00:00:00 Test Item Value Reference Range Interpretation Comments CHOLESTEROL (test code = 2210) 261 MG/DL TRIGLYCERIDES (test code = 2232) 159 MG/DL HDL CHOLESTEROL (test code = 2220) 82 MG/DL CALC LDL CHOL (test code = 2237) 150 MG/DL RISK RATIO LDL/HDL (test code = 1.83 RATIO 2238) COMPREHENSIVE METABOLIC [id number] 00:00:00 Test Item Value Reference Range Interpretation Comments GLUCOSE (test code = 2217) 144 MG/DL BUN (test code = 2208) 15 MG/DL CREATININE (test code = 2214) 0.85 MG/DL eGFR AMER. (test code 87 ML/MIN/1.73 = 69997) eGFR NON- AMER. (test 75 ML/MIN/1.73 code = 09336) CALC BUN/CREAT (test code = 18 RATIO [...] code = 2219) 50 U/L COMPREHENSIVE METABOLIC [id number] 00:00:00 Test Item Value Reference Range Interpretation Comments GLUCOSE (test code = 2217) 144 MG/DL BUN (test code = 2208) 15 MG/DL CREATININE (test code = 2214) 0.85 MG/DL eGFR AMER. (test code 87 ML/MIN/1.73 = 27229) eGFR NON- AMER. (test 75 ML/MIN/1.73 code = 97030) CALC BUN/CREAT (test code = 18 RATIO [...] THYROX. BIND. CAPAC. (test code 1.1 = 13566) T4 (THYROXINE) (test code = 4.3 UG/DL 2819) CORRECTED T4 (FTI) (test code = 3.9 UG/DL 2820) TSH, THIRD GENERATION (test 18.900 UIU/ML code = 2821) THYROID II PROFILE (T3U, T4, T7, TSH)2019 00:00:00 Test Item Value Reference Range Interpretation Comments T-UPTAKE (test code = 2817) 33.1 % THYROX. BIND. CAPAC. (test code 1.0 = 08671) T4 (THYROXINE) (test code = 4.7 UG/DL 2819) CORRECTED T4 (FTI) (test code = 4.7 UG/DL 2820) TSH, THIRD GENERATION (test code 0.201 UIU/ML = 2821) HEMOGLOBIN [id number] 00:00:00 Test Item Value Reference Range Interpretation Comments HEMOGLOBIN A1c (test code = 98548) 6.7 % HEMOGLOBIN [id number] 00:00:00 Test Item Value Reference Range Interpretation Comments HEMOGLOBIN A1c (test code = 14672) 6.7 % HEMOGLOBIN [id number] 00:00:00 Test Item Value Reference Range Interpretation Comments HEMOGLOBIN A1c (test code = 42258) 6.7 % LIPID [id number] 00:00:00 Test Item Value Reference Range Interpretation Comments CHOLESTEROL (test code = 2210) 267 MG/DL TRIGLYCERIDES (test code = 2232) 137 MG/DL HDL CHOLESTEROL (test code = 2220) 48 MG/DL CALC LDL CHOL (test code = 2237) 192 MG/DL RISK RATIO LDL/HDL (test code = 4.00 RATIO 2238) LIPID [id number] 00:00:00 Test Item Value Reference Range Interpretation Comments CHOLESTEROL (test code = 2210) 267 MG/DL TRIGLYCERIDES (test code = 2232) 137 MG/DL HDL CHOLESTEROL (test code = 2220) 48 MG/DL CALC LDL CHOL (test code = 2237) 192 MG/DL RISK RATIO LDL/HDL (test code = 4.00 RATIO 2238) COMPREHENSIVE METABOLIC [id number] 00:00:00 Test Item Value Reference Range Interpretation Comments GLUCOSE (test code = 2217) 155 MG/DL BUN (test code = 2208) 14 MG/DL CREATININE (test code = 2214) 0.52 MG/DL eGFR AMER. (test code 122 ML/MIN/1.73 = 39271) eGFR NON- AMER. (test 105 ML/MIN/1.73 code = 30861) CALC BUN/CREAT (test code = 27 RATIO [...] code = 2219) 27 U/L COMPREHENSIVE METABOLIC [id number] 00:00:00 Test Item Value Reference Range Interpretation Comments GLUCOSE (test code = 2217) 155 MG/DL BUN (test code = 2208) 14 MG/DL CREATININE (test code = 2214) 0.52 MG/DL eGFR AMER. (test code 122 ML/MIN/1.73 = 50445) eGFR NON- AMER. (test 105 ML/MIN/1.73 code = 88098) CALC BUN/CREAT (test code = 27 RATIO [...] THYROX. BIND. CAPAC. (test code 1.0 = 07017) T4 (THYROXINE) (test code = 4.7 UG/DL 2819) CORRECTED T4 (FTI) (test code = 4.7 UG/DL 2820) TSH, THIRD GENERATION (test code 0.201 UIU/ML = 2821) THYROID II PROFILE (T3U, T4, T7, TSH)2019 00:00:00 Test Item Value Reference Range Interpretation Comments T-UPTAKE (test code = 2817) 33.1 % THYROX. BIND. CAPAC. (test code 1.0 = 07246) T4 (THYROXINE) (test code = 4.7 UG/DL 2819) CORRECTED T4 (FTI) (test code = 4.7 UG/DL 2820) TSH, THIRD GENERATION (test code 0.201 UIU/ML = 2821) HEMOGLOBIN [id number] 00:00:00 Test Item Value Reference Range Interpretation Comments HEMOGLOBIN A1c (test code = 60871) 6.7 % HEMOGLOBIN [id number] 00:00:00 Test Item Value Reference Range Interpretation Comments HEMOGLOBIN A1c (test code = 77240) 6.7 % HEMOGLOBIN [id number] 00:00:00 Test Item Value Reference Range Interpretation Comments HEMOGLOBIN A1c (test code = 24341) 6.7 % LIPID [id number] 00:00:00 Test Item Value Reference Range Interpretation Comments CHOLESTEROL (test code = 2210) 267 MG/DL TRIGLYCERIDES (test code = 2232) 137 MG/DL HDL CHOLESTEROL (test code = 2220) 48 MG/DL CALC LDL CHOL (test code = 2237) 192 MG/DL RISK RATIO LDL/HDL (test code = 4.00 RATIO 2238) LIPID [id number] 00:00:00 Test Item Value Reference Range Interpretation Comments CHOLESTEROL (test code = 2210) 267 MG/DL TRIGLYCERIDES (test code = 2232) 137 MG/DL HDL CHOLESTEROL (test code = 2220) 48 MG/DL CALC LDL CHOL (test code = 2237) 192 MG/DL RISK RATIO LDL/HDL (test code = 4.00 RATIO 2238) COMPREHENSIVE METABOLIC [id number] 00:00:00 Test Item Value Reference Range Interpretation Comments GLUCOSE (test code = 2217) 155 MG/DL BUN (test code = 2208) 14 MG/DL CREATININE (test code = 2214) 0.52 MG/DL eGFR AMER. (test code 122 ML/MIN/1.73 = 66908) eGFR NON- AMER. (test 105 ML/MIN/1.73 code = 73287) CALC BUN/CREAT (test code = 27 RATIO [...] code = 2219) 27 U/L COMPREHENSIVE METABOLIC [id number] 00:00:00 Test Item Value Reference Range Interpretation Comments GLUCOSE (test code = 2217) 155 MG/DL BUN (test code = 2208) 14 MG/DL CREATININE (test code = 2214) 0.52 MG/DL eGFR AMER. (test code 122 ML/MIN/1.73 = 67430) eGFR NON- AMER. (test 105 ML/MIN/1.73 code = 93160) CALC BUN/CREAT (test code = 27 RATIO [...] THYROX. BIND. CAPAC. (test code 1.0 = 65414) T4 (THYROXINE) (test code = 4.7 UG/DL 2819) CORRECTED T4 (FTI) (test code = 4.7 UG/DL 2820) TSH, THIRD GENERATION (test code 0.201 UIU/ML = 2821) THYROID II PROFILE (T3U, T4, T7, TSH)2019 00:00:00 Test Item Value Reference Range Interpretation Comments T-UPTAKE (test code = 2817) 33.1 % THYROX. BIND. CAPAC. (test code 1.0 = 26769) T4 (THYROXINE) (test code = 4.7 UG/DL 2819) CORRECTED T4 (FTI) (test code = 4.7 UG/DL 2820) TSH, THIRD GENERATION (test code 0.201 UIU/ML = 2821) HEMOGLOBIN [id number] 00:00:00 Test Item Value Reference Range Interpretation Comments HEMOGLOBIN A1c (test code = 69409) 6.7 % HEMOGLOBIN [id number] 00:00:00 Test Item Value Reference Range Interpretation Comments HEMOGLOBIN A1c (test code = 60747) 6.7 % LIPID [id number] 00:00:00 Test Item Value Reference Range Interpretation Comments CHOLESTEROL (test code = 2210) 267 MG/DL TRIGLYCERIDES (test code = 2232) 137 MG/DL HDL CHOLESTEROL (test code = 2220) 48 MG/DL CALC LDL CHOL (test code = 2237) 192 MG/DL RISK RATIO LDL/HDL (test code = 4.00 RATIO 2238) COMPREHENSIVE METABOLIC [id number] 00:00:00 Test Item Value Reference Range Interpretation Comments GLUCOSE (test code = 2217) 155 MG/DL BUN (test code = 2208) 14 MG/DL CREATININE (test code = 2214) 0.52 MG/DL eGFR AMER. (test code 122 ML/MIN/1.73 = 63277) eGFR NON- AMER. (test 105 ML/MIN/1.73 code = 04993) CALC BUN/CREAT (test code = 27 RATIO [...] THYROX. BIND. CAPAC. (test code 1.0 = 12571) T4 (THYROXINE) (test code = 4.7 UG/DL 2819) CORRECTED T4 (FTI) (test code = 4.7 UG/DL 2820) TSH, THIRD GENERATION (test code 0.201 UIU/ML = 2821) HEMOGLOBIN [id number] 00:00:00 Test Item Value Reference Range Interpretation Comments HEMOGLOBIN A1c (test code = 01108) 6.7 % HEMOGLOBIN [id number] 00:00:00 Test Item Value Reference Range Interpretation Comments HEMOGLOBIN A1c (test code = 31560) 6.7 % HEMOGLOBIN [id number] 00:00:00 Test Item Value Reference Range Interpretation Comments HEMOGLOBIN A1c (test code = 74320) 6.7 % LIPID [id number] 00:00:00 Test Item Value Reference Range Interpretation Comments CHOLESTEROL (test code = 2210) 267 MG/DL TRIGLYCERIDES (test code = 2232) 137 MG/DL HDL CHOLESTEROL (test code = 2220) 48 MG/DL CALC LDL CHOL (test code = 2237) 192 MG/DL RISK RATIO LDL/HDL (test code = 4.00 RATIO 2238) LIPID [id number] 00:00:00 Test Item Value Reference Range Interpretation Comments CHOLESTEROL (test code = 2210) 267 MG/DL TRIGLYCERIDES (test code = 2232) 137 MG/DL HDL CHOLESTEROL (test code = 2220) 48 MG/DL CALC LDL CHOL (test code = 2237) 192 MG/DL RISK RATIO LDL/HDL (test code = 4.00 RATIO 2238) COMPREHENSIVE METABOLIC [id number] 00:00:00 Test Item Value Reference Range Interpretation Comments GLUCOSE (test code = 2217) 155 MG/DL BUN (test code = 2208) 14 MG/DL CREATININE (test code = 2214) 0.52 MG/DL eGFR AMER. (test code 122 ML/MIN/1.73 = 26862) eGFR NON- AMER. (test 105 ML/MIN/1.73 code = 49350) CALC BUN/CREAT (test code = 27 RATIO [...] code = 2219) 27 U/L COMPREHENSIVE METABOLIC [id number] 00:00:00 Test Item Value Reference Range Interpretation Comments GLUCOSE (test code = 2217) 155 MG/DL BUN (test code = 2208) 14 MG/DL CREATININE (test code = 2214) 0.52 MG/DL eGFR AMER. (test code 122 ML/MIN/1.73 = 27657) eGFR NON- AMER. (test 105 ML/MIN/1.73 code = 08704) CALC BUN/CREAT (test code = 27 RATIO [...] THYROX. BIND. CAPAC. (test code 1.0 = 82063) T4 (THYROXINE) (test code = 4.7 UG/DL 2818) CORRECTED T4 (FTI) (test code = 4.7 UG/DL 2820) TSH, THIRD GENERATION (test code 0.201 UIU/ML = 2821) SARS-CoV-2 (COVID-19) by RT-PCR (HIGH RISK)2019-09-18 00:00:00 Test Item Value Reference Range Interpretation Comments SARS-CoV-2 INTERPRETATION (test NEGATIVE code = 90743) SOURCE (test code = 15263) NOT SPECIFIED SARS-CoV-2 (COVID-19) by RT-PCR (HIGH RISK)2019-09-18 00:00:00 Test Item Value Reference Range Interpretation Comments SARS-CoV-2 INTERPRETATION (test NEGATIVE code = 66624) SOURCE (test code = 35216) NOT SPECIFIED SARS-CoV-2 (COVID-19) by RT-PCR (HIGH RISK)2019-09-18 00:00:00 Test Item Value Reference Range Interpretation Comments SARS-CoV-2 INTERPRETATION (test NEGATIVE code = 80027) SOURCE (test code = 31132) NOT SPECIFIED SARS-CoV-2 (COVID-19) by RT-PCR (HIGH RISK)2019-09-18 00:00:00 Test Item Value Reference Range Interpretation Comments SARS-CoV-2 INTERPRETATION (test NEGATIVE code = 96822) SOURCE (test code = 01756) NOT SPECIFIED SARS-CoV-2 (COVID-19) by RT-PCR (HIGH RISK)2019-09-18 00:00:00 Test Item Value Reference Range Interpretation Comments SARS-CoV-2 INTERPRETATION (test NEGATIVE code = 52932) SOURCE (test code = 09477) NOT SPECIFIED SARS-CoV-2 (COVID-19) by RT-PCR (HIGH RISK)2019-09-18 00:00:00 Test Item Value Reference Range Interpretation Comments SARS-CoV-2 INTERPRETATION (test NEGATIVE code = 30552) SOURCE (test code = 72933) NOT SPECIFIED SARS-CoV-2 (COVID-19) by RT-PCR (HIGH RISK)2019-09-18 00:00:00 Test Item Value Reference Range Interpretation Comments SARS-CoV-2 INTERPRETATION (test NEGATIVE code = 38843) SOURCE (test code = 78912) NOT SPECIFIED [id number] 00:00:00 Test Item Value Reference Range Interpretation Comments TSH, THIRD GENERATION (test code 2.490 UIU/ML = 2821) [id number] 00:00:00 Test Item Value Reference Range Interpretation Comments TSH, THIRD GENERATION (test code 2.490 UIU/ML = 2821) [id number] 00:00:00 Test Item Value Reference Range Interpretation Comments TSH, THIRD GENERATION (test code 2.490 UIU/ML = 2821) HEMOGLOBIN [id number] 00:00:00 Test Item Value Reference Range Interpretation Comments HEMOGLOBIN A1c (test code = 48688) 6.4 % HEMOGLOBIN [id number] 00:00:00 Test Item Value Reference Range Interpretation Comments HEMOGLOBIN A1c (test code = 47921) 6.4 % HEMOGLOBIN [id number] 00:00:00 Test Item Value Reference Range Interpretation Comments HEMOGLOBIN A1c (test code = 09264) 6.4 % COMPREHENSIVE METABOLIC [id number] 00:00:00 Test Item Value Reference Range Interpretation Comments GLUCOSE (test code = 2217) 206 MG/DL BUN (test code = 2208) 23 MG/DL CREATININE (test code = 2214) 0.67 MG/DL eGFR AMER. (test code 112 ML/MIN/1.73 = 70578) eGFR NON- AMER. (test 97 ML/MIN/1.73 code = 72131) CALC BUN/CREAT (test code = 34 RATIO [...] code = 2219) 25 U/L COMPREHENSIVE METABOLIC [id number] 00:00:00 Test Item Value Reference Range Interpretation Comments GLUCOSE (test code = 2217) 206 MG/DL BUN (test code = 2208) 23 MG/DL CREATININE (test code = 2214) 0.67 MG/DL eGFR AMER. (test code 112 ML/MIN/1.73 = 56112) eGFR NON- AMER. (test 97 ML/MIN/1.73 code = 10643) CALC BUN/CREAT (test code = 34 RATIO [...] ALT (test code = 2219) 25 U/L [id number] 00:00:00 Test Item Value Reference Range Interpretation Comments TSH, THIRD GENERATION (test code 2.490 UIU/ML = 2821) [id number] 00:00:00 Test Item Value Reference Range Interpretation Comments TSH, THIRD GENERATION (test code 2.490 UIU/ML = 2821) [id number] 00:00:00 Test Item Value Reference Range Interpretation Comments TSH, THIRD GENERATION (test code 2.490 UIU/ML = 2821) HEMOGLOBIN [id number] 00:00:00 Test Item Value Reference Range Interpretation Comments HEMOGLOBIN A1c (test code = 97650) 6.4 % HEMOGLOBIN [id number] 00:00:00 Test Item Value Reference Range Interpretation Comments HEMOGLOBIN A1c (test code = 02671) 6.4 % HEMOGLOBIN [id number] 00:00:00 Test Item Value Reference Range Interpretation Comments HEMOGLOBIN A1c (test code = 58686) 6.4 % COMPREHENSIVE METABOLIC [id number] 00:00:00 Test Item Value Reference Range Interpretation Comments GLUCOSE (test code = 2217) 206 MG/DL BUN (test code = 2208) 23 MG/DL CREATININE (test code = 2214) 0.67 MG/DL eGFR AMER. (test code 112 ML/MIN/1.73 = 07646) eGFR NON- AMER. (test 97 ML/MIN/1.73 code = 73559) CALC BUN/CREAT (test code = 34 RATIO [...] code = 2219) 25 U/L COMPREHENSIVE METABOLIC [id number] 00:00:00 Test Item Value Reference Range Interpretation Comments GLUCOSE (test code = 2217) 206 MG/DL BUN (test code = 2208) 23 MG/DL CREATININE (test code = 2214) 0.67 MG/DL eGFR AMER. (test code 112 ML/MIN/1.73 = 49853) eGFR NON- AMER. (test 97 ML/MIN/1.73 code = 49298) CALC BUN/CREAT (test code = 34 RATIO [...] ALT (test code = 2219) 25 U/L [id number] 00:00:00 Test Item Value Reference Range Interpretation Comments TSH, THIRD GENERATION (test code 2.490 UIU/ML = 2821) [id number] 00:00:00 Test Item Value Reference Range Interpretation Comments TSH, THIRD GENERATION (test code 2.490 UIU/ML = 2821) HEMOGLOBIN [id number] 00:00:00 Test Item Value Reference Range Interpretation Comments HEMOGLOBIN A1c (test code = 11873) 6.4 % HEMOGLOBIN [id number] 00:00:00 Test Item Value Reference Range Interpretation Comments HEMOGLOBIN A1c (test code = 81049) 6.4 % COMPREHENSIVE METABOLIC [id number] 00:00:00 Test Item Value Reference Range Interpretation Comments GLUCOSE (test code = 2217) 206 MG/DL BUN (test code = 2208) 23 MG/DL CREATININE (test code = 2214) 0.67 MG/DL eGFR AMER. (test code 112 ML/MIN/1.73 = 38023) eGFR NON- AMER. (test 97 ML/MIN/1.73 code = 59719) CALC BUN/CREAT (test code = 34 RATIO [...] ALT (test code = 2219) 25 U/L [id number] 00:00:00 Test Item Value Reference Range Interpretation Comments TSH, THIRD GENERATION (test code 2.490 UIU/ML = 2821) [id number] 00:00:00 Test Item Value Reference Range Interpretation Comments TSH, THIRD GENERATION (test code 2.490 UIU/ML = 2821) [id number] 00:00:00 Test Item Value Reference Range Interpretation Comments TSH, THIRD GENERATION (test code 2.490 UIU/ML = 2821) HEMOGLOBIN [id number] 00:00:00 Test Item Value Reference Range Interpretation Comments HEMOGLOBIN A1c (test code = 67199) 6.4 % HEMOGLOBIN [id number] 00:00:00 Test Item Value Reference Range Interpretation Comments HEMOGLOBIN A1c (test code = 74035) 6.4 % HEMOGLOBIN [id number] 00:00:00 Test Item Value Reference Range Interpretation Comments HEMOGLOBIN A1c (test code = 88862) 6.4 % COMPREHENSIVE METABOLIC [id number] 00:00:00 Test Item Value Reference Range Interpretation Comments GLUCOSE (test code = 2217) 206 MG/DL BUN (test code = 2208) 23 MG/DL CREATININE (test code = 2214) 0.67 MG/DL eGFR AMER. (test code 112 ML/MIN/1.73 = 72895) eGFR NON- AMER. (test 97 ML/MIN/1.73 code = 71165) CALC BUN/CREAT (test code = 34 RATIO [...] code = 2219) 25 U/L COMPREHENSIVE METABOLIC [id number] 00:00:00 Test Item Value Reference Range Interpretation Comments GLUCOSE (test code = 2217) 206 MG/DL BUN (test code = 2208) 23 MG/DL CREATININE (test code = 2214) 0.67 MG/DL eGFR AMER. (test code 112 ML/MIN/1.73 = 40464) eGFR NON- AMER. (test 97 ML/MIN/1.73 code = 72232) CALC BUN/CREAT (test code = 34 RATIO [...] = 2219) 25 U/L VAGINAL PATHOGENS DNA [id number] 00:00:00 Test Item Value Reference Range Interpretation Comments MARK SPECIES (test code = 06806) NEGATIVE G. VAGINALIS (test code = 93716) NEGATIVE T. VAGINALIS (test code = 02821) NEGATIVE VAGINAL PATHOGENS DNA [id number] 00:00:00 Test Item Value Reference Range Interpretation Comments MARK SPECIES (test code = 09871) NEGATIVE G. VAGINALIS (test code = 10469) NEGATIVE T. VAGINALIS (test code = 71943) NEGATIVE VAGINAL PATHOGENS DNA [id number] 00:00:00 Test Item Value Reference Range Interpretation Comments MARK SPECIES (test code = 35071) NEGATIVE G. VAGINALIS (test code = 75039) NEGATIVE T. VAGINALIS (test code = 21111) NEGATIVE VAGINAL PATHOGENS DNA [id number] 00:00:00 Test Item Value Reference Range Interpretation Comments MARK SPECIES (test code = 09878) NEGATIVE G. VAGINALIS (test code = 62997) NEGATIVE T. VAGINALIS (test code = 19232) NEGATIVE VAGINAL PATHOGENS DNA [id number] 00:00:00 Test Item Value Reference Range Interpretation Comments MARK SPECIES (test code = 30347) NEGATIVE G. VAGINALIS (test code = 76595) NEGATIVE T. VAGINALIS (test code = 41995) NEGATIVE VAGINAL PATHOGENS DNA [id number] 00:00:00 Test Item Value Reference Range Interpretation Comments MARK SPECIES (test code = 76951) NEGATIVE G. VAGINALIS (test code = 39390) NEGATIVE T. VAGINALIS (test code = 40156) NEGATIVE VAGINAL PATHOGENS DNA [id number] 00:00:00 Test Item Value Reference Range Interpretation Comments MARK SPECIES (test code = 15414) NEGATIVE G. VAGINALIS (test code = 36562) NEGATIVE T. VAGINALIS (test code = 73106) NEGATIVE HEMOGLOBIN A1c [ADDED]2018-12-01 00:00:00 Test Item Value Reference Range Interpretation Comments HEMOGLOBIN A1c (test code = 85642) 6.7 % HEMOGLOBIN A1c [ADDED]2018-12-01 00:00:00 Test Item Value Reference Range Interpretation Comments HEMOGLOBIN A1c (test code = 21676) 6.7 % HEMOGLOBIN A1c [ADDED]2018-12-01 00:00:00 Test Item Value Reference Range Interpretation Comments HEMOGLOBIN A1c (test code = 09098) 6.7 % COMPREHENSIVE METABOLIC PANEL [ADDED]2018-12-01 00:00:00 Test Item Value Reference Range Interpretation Comments GLUCOSE (test code = 2217) 136 MG/DL BUN (test code = 2208) 15 MG/DL CREATININE (test code = 2214) 0.64 MG/DL eGFR AMER. (test code 115 ML/MIN/1.73 = 17077) eGFR NON- AMER. (test 99 ML/MIN/1.73 code = 67395) CALC BUN/CREAT (test code = 23 RATIO [...] eGFR AMER. (test code 115 ML/MIN/1.73 = 09706) eGFR NON- AMER. (test 99 ML/MIN/1.73 code = 36754) CALC BUN/CREAT (test code = 23 RATIO [...] Interpretation Comments HEMOGLOBIN A1c (test code = 98400) 6.7 % HEMOGLOBIN A1c [ADDED]2018-12-01 00:00:00 Test Item Value Reference Range Interpretation Comments HEMOGLOBIN A1c (test code = 86780) 6.7 % HEMOGLOBIN A1c [ADDED]2018-12-01 00:00:00 Test Item Value Reference Range Interpretation Comments HEMOGLOBIN A1c (test code = 10403) 6.7 % COMPREHENSIVE METABOLIC PANEL [ADDED]2018-12-01 00:00:00 Test Item Value Reference Range Interpretation Comments GLUCOSE (test code = 2217) 136 MG/DL BUN (test code = 2208) 15 MG/DL CREATININE (test code = 2214) 0.64 MG/DL eGFR AMER. (test code 115 ML/MIN/1.73 = 89402) eGFR NON- AMER. (test 99 ML/MIN/1.73 code = 68571) CALC BUN/CREAT (test code = 23 RATIO [...] eGFR AMER. (test code 115 ML/MIN/1.73 = 40477) eGFR NON- AMER. (test 99 ML/MIN/1.73 code = 58271) CALC BUN/CREAT (test code = 23 RATIO [...] Interpretation Comments HEMOGLOBIN A1c (test code = 90843) 6.7 % HEMOGLOBIN A1c [ADDED]2018-12-01 00:00:00 Test Item Value Reference Range Interpretation Comments HEMOGLOBIN A1c (test code = 93381) 6.7 % COMPREHENSIVE METABOLIC PANEL [ADDED]2018-12-01 00:00:00 Test Item Value Reference Range Interpretation Comments GLUCOSE (test code = 2217) 136 MG/DL BUN (test code = 2208) 15 MG/DL CREATININE (test code = 2214) 0.64 MG/DL eGFR AMER. (test code 115 ML/MIN/1.73 = 04319) eGFR NON- AMER. (test 99 ML/MIN/1.73 code = 37322) CALC BUN/CREAT (test code = 23 RATIO [...] Interpretation Comments HEMOGLOBIN A1c (test code = 97908) 6.7 % HEMOGLOBIN A1c [ADDED]2018-12-01 00:00:00 Test Item Value Reference Range Interpretation Comments HEMOGLOBIN A1c (test code = 82215) 6.7 % HEMOGLOBIN A1c [ADDED]2018-12-01 00:00:00 Test Item Value Reference Range Interpretation Comments HEMOGLOBIN A1c (test code = 09746) 6.7 % COMPREHENSIVE METABOLIC PANEL [ADDED]2018-12-01 00:00:00 Test Item Value Reference Range Interpretation Comments GLUCOSE (test code = 2217) 136 MG/DL BUN (test code = 2208) 15 MG/DL CREATININE (test code = 2214) 0.64 MG/DL eGFR AMER. (test code 115 ML/MIN/1.73 = 41375) eGFR NON- AMER. (test 99 ML/MIN/1.73 code = 35122) CALC BUN/CREAT (test code = 23 RATIO [...] eGFR AMER. (test code 115 ML/MIN/1.73 = 35755) eGFR NON- AMER. (test 99 ML/MIN/1.73 code = 27740) CALC BUN/CREAT (test code = 23 RATIO [...] code 1.280 UIU/ML = 2821) COMPREHENSIVE METABOLIC [id number] 00:00:00 Test Item Value Reference Range Interpretation Comments GLUCOSE (test code = 2217) 113 MG/DL BUN (test code = 2208) 18 MG/DL CREATININE (test code = 2214) 0.70 MG/DL eGFR AMER. (test code 111 ML/MIN/1.73 = 27347) eGFR NON- AMER. (test 96 ML/MIN/1.73 code = 11190) CALC BUN/CREAT (test code = 26 RATIO [...] code = 2219) 31 U/L COMPREHENSIVE METABOLIC [id number] 00:00:00 Test Item Value Reference Range Interpretation Comments GLUCOSE (test code = 2217) 113 MG/DL BUN (test code = 2208) 18 MG/DL CREATININE (test code = 2214) 0.70 MG/DL eGFR AMER. (test code 111 ML/MIN/1.73 = 05633) eGFR NON- AMER. (test 96 ML/MIN/1.73 code = 27022) CALC BUN/CREAT (test code = 26 RATIO [...] ALT (test code = 2219) 31 U/L [id number] 00:00:00 Test Item Value Reference Range Interpretation Comments TSH, THIRD GENERATION (test code 2.520 UIU/ML = 2821) [id number] 00:00:00 Test Item Value Reference Range Interpretation Comments TSH, THIRD GENERATION (test code 2.520 UIU/ML = 2821) [id number] 00:00:00 Test Item Value Reference Range Interpretation Comments TSH, THIRD GENERATION (test code 2.520 UIU/ML = 2821) CBC W/AUTO [id number] 00:00:00 Test Item Value Reference Range Interpretation [...] code = 1015) 346 K/UL CBC W/AUTO [id number] 00:00:00 Test Item Value Reference Range Interpretation [...] code = 1015) 346 K/UL CBC W/AUTO [id number] 00:00:00 Test Item Value Reference Range Interpretation [...] (test code = 1015) 346 K/UL HEMOGLOBIN [id number] 00:00:00 Test Item Value Reference Range Interpretation Comments HEMOGLOBIN A1c (test code = 37143) 5.9 % HEMOGLOBIN [id number] 00:00:00 Test Item Value Reference Range Interpretation Comments HEMOGLOBIN A1c (test code = 97311) 5.9 % HEMOGLOBIN [id number] 00:00:00 Test Item Value Reference Range Interpretation Comments HEMOGLOBIN A1c (test code = 55348) 5.9 % LIPID [id number] 00:00:00 Test Item Value Reference Range Interpretation Comments CHOLESTEROL (test code = 2210) 318 MG/DL TRIGLYCERIDES (test code = 2232) 263 MG/DL HDL CHOLESTEROL (test code = 2220) 51 MG/DL CALC LDL CHOL (test code = 2237) 214 MG/DL RISK RATIO LDL/HDL (test code = 4.20 RATIO 2238) LIPID [id number] 00:00:00 Test Item Value Reference Range Interpretation Comments CHOLESTEROL (test code = 2210) 318 MG/DL TRIGLYCERIDES (test code = 2232) 263 MG/DL HDL CHOLESTEROL (test code = 2220) 51 MG/DL CALC LDL CHOL (test code = 2237) 214 MG/DL RISK RATIO LDL/HDL (test code = 4.20 RATIO 2238) COMPREHENSIVE METABOLIC [id number] 00:00:00 Test Item Value Reference Range Interpretation Comments GLUCOSE (test code = 2217) 113 MG/DL BUN (test code = 2208) 18 MG/DL CREATININE (test code = 2214) 0.70 MG/DL eGFR AMER. (test code 111 ML/MIN/1.73 = 10538) eGFR NON- AMER. (test 96 ML/MIN/1.73 code = 78716) CALC BUN/CREAT (test code = 26 RATIO [...] code = 2219) 31 U/L COMPREHENSIVE METABOLIC [id number] 00:00:00 Test Item Value Reference Range Interpretation Comments GLUCOSE (test code = 2217) 113 MG/DL BUN (test code = 2208) 18 MG/DL CREATININE (test code = 2214) 0.70 MG/DL eGFR AMER. (test code 111 ML/MIN/1.73 = 22706) eGFR NON- AMER. (test 96 ML/MIN/1.73 code = 19786) CALC BUN/CREAT (test code = 26 RATIO [...] ALT (test code = 2219) 31 U/L [id number] 00:00:00 Test Item Value Reference Range Interpretation Comments TSH, THIRD GENERATION (test code 2.520 UIU/ML = 2821) [id number] 00:00:00 Test Item Value Reference Range Interpretation Comments TSH, THIRD GENERATION (test code 2.520 UIU/ML = 2821) [id number] 00:00:00 Test Item Value Reference Range Interpretation Comments TSH, THIRD GENERATION (test code 2.520 UIU/ML = 2821) CBC W/AUTO [id number] 00:00:00 Test Item Value Reference Range Interpretation [...] code = 1015) 346 K/UL CBC W/AUTO [id number] 00:00:00 Test Item Value Reference Range Interpretation [...] code = 1015) 346 K/UL CBC W/AUTO [id number] 00:00:00 Test Item Value Reference Range Interpretation [...] (test code = 1015) 346 K/UL HEMOGLOBIN [id number] 00:00:00 Test Item Value Reference Range Interpretation Comments HEMOGLOBIN A1c (test code = 46839) 5.9 % HEMOGLOBIN [id number] 00:00:00 Test Item Value Reference Range Interpretation Comments HEMOGLOBIN A1c (test code = 83186) 5.9 % HEMOGLOBIN [id number] 00:00:00 Test Item Value Reference Range Interpretation Comments HEMOGLOBIN A1c (test code = 01451) 5.9 % LIPID [id number] 00:00:00 Test Item Value Reference Range Interpretation Comments CHOLESTEROL (test code = 2210) 318 MG/DL TRIGLYCERIDES (test code = 2232) 263 MG/DL HDL CHOLESTEROL (test code = 2220) 51 MG/DL CALC LDL CHOL (test code = 2237) 214 MG/DL RISK RATIO LDL/HDL (test code = 4.20 RATIO 2238) LIPID [id number] 00:00:00 Test Item Value Reference Range Interpretation Comments CHOLESTEROL (test code = 2210) 318 MG/DL TRIGLYCERIDES (test code = 2232) 263 MG/DL HDL CHOLESTEROL (test code = 2220) 51 MG/DL CALC LDL CHOL (test code = 2237) 214 MG/DL RISK RATIO LDL/HDL (test code = 4.20 RATIO 2238) COMPREHENSIVE METABOLIC [id number] 00:00:00 Test Item Value Reference Range Interpretation Comments GLUCOSE (test code = 2217) 113 MG/DL BUN (test code = 2208) 18 MG/DL CREATININE (test code = 2214) 0.70 MG/DL eGFR AMER. (test code 111 ML/MIN/1.73 = 14846) eGFR NON- AMER. (test 96 ML/MIN/1.73 code = 38149) CALC BUN/CREAT (test code = 26 RATIO [...] code = 2219) 31 U/L COMPREHENSIVE METABOLIC [id number] 00:00:00 Test Item Value Reference Range Interpretation Comments GLUCOSE (test code = 2217) 113 MG/DL BUN (test code = 2208) 18 MG/DL CREATININE (test code = 2214) 0.70 MG/DL eGFR AMER. (test code 111 ML/MIN/1.73 = 33295) eGFR NON- AMER. (test 96 ML/MIN/1.73 code = 24046) CALC BUN/CREAT (test code = 26 RATIO [...] ALT (test code = 2219) 31 U/L [id number] 00:00:00 Test Item Value Reference Range Interpretation Comments TSH, THIRD GENERATION (test code 2.520 UIU/ML = 2821) [id number] 00:00:00 Test Item Value Reference Range Interpretation Comments TSH, THIRD GENERATION (test code 2.520 UIU/ML = 2821) [id number] 00:00:00 Test Item Value Reference Range Interpretation Comments TSH, THIRD GENERATION (test code 2.520 UIU/ML = 2821) CBC W/AUTO [id number] 00:00:00 Test Item Value Reference Range Interpretation [...] code = 1015) 346 K/UL CBC W/AUTO [id number] 00:00:00 Test Item Value Reference Range Interpretation [...] (test code = 1015) 346 K/UL HEMOGLOBIN [id number] 00:00:00 Test Item Value Reference Range Interpretation Comments HEMOGLOBIN A1c (test code = 82015) 5.9 % HEMOGLOBIN [id number] 00:00:00 Test Item Value Reference Range Interpretation Comments HEMOGLOBIN A1c (test code = 97824) 5.9 % LIPID [id number] 00:00:00 Test Item Value Reference Range Interpretation Comments CHOLESTEROL (test code = 2210) 318 MG/DL TRIGLYCERIDES (test code = 2232) 263 MG/DL HDL CHOLESTEROL (test code = 2220) 51 MG/DL CALC LDL CHOL (test code = 2237) 214 MG/DL RISK RATIO LDL/HDL (test code = 4.20 RATIO 2238) COMPREHENSIVE METABOLIC [id number] 00:00:00 Test Item Value Reference Range Interpretation Comments GLUCOSE (test code = 2217) 113 MG/DL BUN (test code = 2208) 18 MG/DL CREATININE (test code = 2214) 0.70 MG/DL eGFR AMER. (test code 111 ML/MIN/1.73 = 76026) eGFR NON- AMER. (test 96 ML/MIN/1.73 code = 94197) CALC BUN/CREAT (test code = 26 RATIO [...] ALT (test code = 2219) 31 U/L [id number] 00:00:00 Test Item Value Reference Range Interpretation Comments TSH, THIRD GENERATION (test code 2.520 UIU/ML = 2821) [id number] 00:00:00 Test Item Value Reference Range Interpretation Comments TSH, THIRD GENERATION (test code 2.520 UIU/ML = 2821) CBC W/AUTO [id number] 00:00:00 Test Item Value Reference Range Interpretation [...] code = 1015) 346 K/UL CBC W/AUTO [id number] 00:00:00 Test Item Value Reference Range Interpretation [...] code = 1015) 346 K/UL CBC W/AUTO [id number] 00:00:00 Test Item Value Reference Range Interpretation [...] (test code = 1015) 346 K/UL HEMOGLOBIN [id number] 00:00:00 Test Item Value Reference Range Interpretation Comments HEMOGLOBIN A1c (test code = 89288) 5.9 % HEMOGLOBIN [id number] 00:00:00 Test Item Value Reference Range Interpretation Comments HEMOGLOBIN A1c (test code = 47128) 5.9 % HEMOGLOBIN [id number] 00:00:00 Test Item Value Reference Range Interpretation Comments HEMOGLOBIN A1c (test code = 31615) 5.9 % LIPID [id number] 00:00:00 Test Item Value Reference Range Interpretation Comments CHOLESTEROL (test code = 2210) 318 MG/DL TRIGLYCERIDES (test code = 2232) 263 MG/DL HDL CHOLESTEROL (test code = 2220) 51 MG/DL CALC LDL CHOL (test code = 2237) 214 MG/DL RISK RATIO LDL/HDL (test code = 4.20 RATIO 2238) LIPID [id number] 00:00:00 Test Item Value Reference Range Interpretation Comments CHOLESTEROL (test code = 2210) 318 MG/DL TRIGLYCERIDES (test code = 2232) 263 MG/DL HDL CHOLESTEROL (test code = 2220) 51 MG/DL CALC LDL CHOL (test code = 2237) 214 MG/DL RISK RATIO LDL/HDL (test code = 4.20 RATIO 2238) CULTURE, [id number] 00:00:00 Test Item Value Reference Range Interpretation Comments CULTURE, URINE (test SPECIMEN NUMBER: code = 54728) [id number] CULTURE, [id number] 00:00:00 Test Item Value Reference Range Interpretation Comments CULTURE, URINE (test SPECIMEN NUMBER: code = 46607) [id number] CULTURE, [id number] 00:00:00 Test Item Value Reference Range Interpretation Comments CULTURE, URINE (test SPECIMEN NUMBER: code = 28556) [id number] CULTURE, [id number] 00:00:00 Test Item Value Reference Range Interpretation Comments CULTURE, URINE (test SPECIMEN NUMBER: code = 83807) [id number] CULTURE, [id number] 00:00:00 Test Item Value Reference Range Interpretation Comments CULTURE, URINE (test SPECIMEN NUMBER: code = 08934) [id number] CULTURE, [id number] 00:00:00 Test Item Value Reference Range Interpretation Comments CULTURE, URINE (test SPECIMEN NUMBER: code = 19671) [id number] CULTURE, [id number] 00:00:00 Test Item Value Reference Range Interpretation Comments CULTURE, URINE (test SPECIMEN NUMBER: code = 31940) [id number] CULTURE, [id number] 00:00:00 Test Item Value Reference Range Interpretation Comments CULTURE, URINE (test SPECIMEN NUMBER: code = 47272) [id number] CULTURE, [id number] 00:00:00 Test Item Value Reference Range Interpretation Comments CULTURE, URINE (test SPECIMEN NUMBER: code = 87918) [id number] CULTURE, [id number] 00:00:00 Test Item Value Reference Range Interpretation Comments CULTURE, URINE (test SPECIMEN NUMBER: code = 41883) [id number] CULTURE, [id number] 00:00:00 Test Item Value Reference Range Interpretation Comments CULTURE, URINE (test SPECIMEN NUMBER: code = 73151) [id number] CULTURE, [id number] 00:00:00 Test Item Value Reference Range Interpretation Comments CULTURE, URINE (test SPECIMEN NUMBER: code = 98699) [id number] CULTURE, [id number] 00:00:00 Test Item Value Reference Range Interpretation Comments CULTURE, URINE (test SPECIMEN NUMBER: code = 32358) [id number] CULTURE, [id number] 00:00:00 Test Item Value Reference Range Interpretation Comments CULTURE, URINE (test SPECIMEN NUMBER: code = 69447) [id number] 00:00:00 Test Item Value Reference Range Interpretation Comments TSH, THIRD GENERATION (test code 0.988 UIU/ML = 2821) [id number] 00:00:00 Test Item Value Reference Range Interpretation Comments TSH, THIRD GENERATION (test code 0.988 UIU/ML = 2821) BASIC METABOLIC [id number] 00:00:00 Test Item Value Reference Range Interpretation Comments GLUCOSE (test code = 2217) 135 MG/DL BUN (test code = 2208) 25 MG/DL CREATININE (test code = 2214) 0.76 MG/DL eGFR AMER. (test code 101 ML/MIN/1.73 = 34711) eGFR NON- AMER. (test 87 ML/MIN/1.73 code = 06531) SODIUM (test code = 2231) 139 MEQ/L POTASSIUM (test code = 2228) 4.7 MEQ/L CHLORIDE (test code = 2215) 99 MEQ/L CARBON DIOXIDE (test code = 26 MEQ/L 2206) CALCIUM (test code = 2209) 9.4 MG/DL BASIC METABOLIC [id number] 00:00:00 Test Item Value Reference Range Interpretation Comments GLUCOSE (test code = 2217) 135 MG/DL BUN (test code = 2208) 25 MG/DL CREATININE (test code = 2214) 0.76 MG/DL eGFR AMER. (test code 101 ML/MIN/1.73 = 51427) eGFR NON- AMER. (test 87 ML/MIN/1.73 code = 26077) SODIUM (test code = 2231) 139 MEQ/L POTASSIUM (test code = 2228) 4.7 MEQ/L CHLORIDE (test code = 2215) 99 MEQ/L CARBON DIOXIDE (test code = 26 MEQ/L 2206) CALCIUM (test code = 2209) 9.4 MG/DL LIPID [id number] 00:00:00 Test Item Value Reference Range Interpretation Comments CHOLESTEROL (test code = 2210) 262 MG/DL TRIGLYCERIDES (test code = 2232) 300 MG/DL HDL CHOLESTEROL (test code = 2220) 36 MG/DL CALC LDL CHOL (test code = 2237) 166 MG/DL RISK RATIO LDL/HDL (test code = 4.61 RATIO 2238) LIPID [id number] 00:00:00 Test Item Value Reference Range Interpretation Comments CHOLESTEROL (test code = 2210) 262 MG/DL TRIGLYCERIDES (test code = 2232) 300 MG/DL HDL CHOLESTEROL (test code = 2220) 36 MG/DL CALC LDL CHOL (test code = 2237) 166 MG/DL RISK RATIO LDL/HDL (test code = 4.61 RATIO 2238) HEMOGLOBIN [id number] 00:00:00 Test Item Value Reference Range Interpretation Comments HEMOGLOBIN A1c (test code = 16897) 6.2 % HEMOGLOBIN [id number] 00:00:00 Test Item Value Reference Range Interpretation Comments HEMOGLOBIN A1c (test code = 71406) 6.2 % HEMOGLOBIN [id number] 00:00:00 Test Item Value Reference Range Interpretation Comments HEMOGLOBIN A1c (test code = 49588) 6.2 % [id number] 00:00:00 Test Item Value Reference Range Interpretation Comments TSH, THIRD GENERATION (test code 0.988 UIU/ML = 2821) [id number] 00:00:00 Test Item Value Reference Range Interpretation Comments TSH, THIRD GENERATION (test code 0.988 UIU/ML = 2821) [id number] 00:00:00 Test Item Value Reference Range Interpretation Comments TSH, THIRD GENERATION (test code 0.988 UIU/ML = 2821) BASIC METABOLIC [id number] 00:00:00 Test Item Value Reference Range Interpretation Comments GLUCOSE (test code = 2217) 135 MG/DL BUN (test code = 2208) 25 MG/DL CREATININE (test code = 2214) 0.76 MG/DL eGFR AMER. (test code 101 ML/MIN/1.73 = 38374) eGFR NON- AMER. (test 87 ML/MIN/1.73 code = 75747) SODIUM (test code = 2231) 139 MEQ/L POTASSIUM (test code = 2228) 4.7 MEQ/L CHLORIDE (test code = 2215) 99 MEQ/L CARBON DIOXIDE (test code = 26 MEQ/L 2206) CALCIUM (test code = 2209) 9.4 MG/DL BASIC METABOLIC [id number] 00:00:00 Test Item Value Reference Range Interpretation Comments GLUCOSE (test code = 2217) 135 MG/DL BUN (test code = 2208) 25 MG/DL CREATININE (test code = 2214) 0.76 MG/DL eGFR AMER. (test code 101 ML/MIN/1.73 = 75927) eGFR NON- AMER. (test 87 ML/MIN/1.73 code = 89470) SODIUM (test code = 2231) 139 MEQ/L POTASSIUM (test code = 2228) 4.7 MEQ/L CHLORIDE (test code = 2215) 99 MEQ/L CARBON DIOXIDE (test code = 26 MEQ/L 2206) CALCIUM (test code = 2209) 9.4 MG/DL LIPID [id number] 00:00:00 Test Item Value Reference Range Interpretation Comments CHOLESTEROL (test code = 2210) 262 MG/DL TRIGLYCERIDES (test code = 2232) 300 MG/DL HDL CHOLESTEROL (test code = 2220) 36 MG/DL CALC LDL CHOL (test code = 2237) 166 MG/DL RISK RATIO LDL/HDL (test code = 4.61 RATIO 2238) LIPID [id number] 00:00:00 Test Item Value Reference Range Interpretation Comments CHOLESTEROL (test code = 2210) 262 MG/DL TRIGLYCERIDES (test code = 2232) 300 MG/DL HDL CHOLESTEROL (test code = 2220) 36 MG/DL CALC LDL CHOL (test code = 2237) 166 MG/DL RISK RATIO LDL/HDL (test code = 4.61 RATIO 2238) HEMOGLOBIN [id number] 00:00:00 Test Item Value Reference Range Interpretation Comments HEMOGLOBIN A1c (test code = 91818) 6.2 % HEMOGLOBIN [id number] 00:00:00 Test Item Value Reference Range Interpretation Comments HEMOGLOBIN A1c (test code = 41191) 6.2 % HEMOGLOBIN [id number] 00:00:00 Test Item Value Reference Range Interpretation Comments HEMOGLOBIN A1c (test code = 19755) 6.2 % [id number] 00:00:00 Test Item Value Reference Range Interpretation Comments TSH, THIRD GENERATION (test code 0.988 UIU/ML = 2821) [id number] 00:00:00 Test Item Value Reference Range Interpretation Comments TSH, THIRD GENERATION (test code 0.988 UIU/ML = 2821) [id number] 00:00:00 Test Item Value Reference Range Interpretation Comments TSH, THIRD GENERATION (test code 0.988 UIU/ML = 2821) BASIC METABOLIC [id number] 00:00:00 Test Item Value Reference Range Interpretation Comments GLUCOSE (test code = 2217) 135 MG/DL BUN (test code = 2208) 25 MG/DL CREATININE (test code = 2214) 0.76 MG/DL eGFR AMER. (test code 101 ML/MIN/1.73 = 94224) eGFR NON- AMER. (test 87 ML/MIN/1.73 code = 79506) SODIUM (test code = 2231) 139 MEQ/L POTASSIUM (test code = 2228) 4.7 MEQ/L CHLORIDE (test code = 2215) 99 MEQ/L CARBON DIOXIDE (test code = 26 MEQ/L 2206) CALCIUM (test code = 2209) 9.4 MG/DL LIPID [id number] 00:00:00 Test Item Value Reference Range Interpretation Comments CHOLESTEROL (test code = 2210) 262 MG/DL TRIGLYCERIDES (test code = 2232) 300 MG/DL HDL CHOLESTEROL (test code = 2220) 36 MG/DL CALC LDL CHOL (test code = 2237) 166 MG/DL RISK RATIO LDL/HDL (test code = 4.61 RATIO 2238) HEMOGLOBIN [id number] 00:00:00 Test Item Value Reference Range Interpretation Comments HEMOGLOBIN A1c (test code = 47682) 6.2 % HEMOGLOBIN [id number] 00:00:00 Test Item Value Reference Range Interpretation Comments HEMOGLOBIN A1c (test code = 19239) 6.2 % [id number] 00:00:00 Test Item Value Reference Range Interpretation Comments TSH, THIRD GENERATION (test code 0.988 UIU/ML = 2821) [id number] 00:00:00 Test Item Value Reference Range Interpretation Comments TSH, THIRD GENERATION (test code 0.988 UIU/ML = 2821) BASIC METABOLIC [id number] 00:00:00 Test Item Value Reference Range Interpretation Comments GLUCOSE (test code = 2217) 135 MG/DL BUN (test code = 2208) 25 MG/DL CREATININE (test code = 2214) 0.76 MG/DL eGFR AMER. (test code 101 ML/MIN/1.73 = 55779) eGFR NON- AMER. (test 87 ML/MIN/1.73 code = 16950) SODIUM (test code = 2231) 139 MEQ/L POTASSIUM (test code = 2228) 4.7 MEQ/L CHLORIDE (test code = 2215) 99 MEQ/L CARBON DIOXIDE (test code = 26 MEQ/L 2206) CALCIUM (test code = 2209) 9.4 MG/DL BASIC METABOLIC [id number] 00:00:00 Test Item Value Reference Range Interpretation Comments GLUCOSE (test code = 2217) 135 MG/DL BUN (test code = 2208) 25 MG/DL CREATININE (test code = 2214) 0.76 MG/DL eGFR AMER. (test code 101 ML/MIN/1.73 = 34119) eGFR NON- AMER. (test 87 ML/MIN/1.73 code = 92390) SODIUM (test code = 2231) 139 MEQ/L POTASSIUM (test code = 2228) 4.7 MEQ/L CHLORIDE (test code = 2215) 99 MEQ/L CARBON DIOXIDE (test code = 26 MEQ/L 2205) CALCIUM (test code = 2209) 9.4 MG/DL LIPID [id number] 00:00:00 Test Item Value Reference Range Interpretation Comments CHOLESTEROL (test code = 2210) 262 MG/DL TRIGLYCERIDES (test code = 2232) 300 MG/DL HDL CHOLESTEROL (test code = 2220) 36 MG/DL CALC LDL CHOL (test code = 2237) 166 MG/DL RISK RATIO LDL/HDL (test code = 4.61 RATIO 2238) LIPID [id number] 00:00:00 Test Item Value Reference Range Interpretation Comments CHOLESTEROL (test code = 2210) 262 MG/DL TRIGLYCERIDES (test code = 2232) 300 MG/DL HDL CHOLESTEROL (test code = 2220) 36 MG/DL CALC LDL CHOL (test code = 2237) 166 MG/DL RISK RATIO LDL/HDL (test code = 4.61 RATIO 2238) HEMOGLOBIN [id number] 00:00:00 Test Item Value Reference Range Interpretation Comments HEMOGLOBIN A1c (test code = 00182) 6.2 % HEMOGLOBIN [id number] 00:00:00 Test Item Value Reference Range Interpretation Comments HEMOGLOBIN A1c (test code = 74679) 6.2 % HEMOGLOBIN [id number] 00:00:00 Test Item Value Reference Range Interpretation Comments HEMOGLOBIN A1c (test code = 58917) 6.2 % [id number] 00:00:00 Test Item Value Reference Range Interpretation Comments TSH, THIRD GENERATION (test code 0.988 UIU/ML = 2821) [id number] 00:00:00 Test Item Value Reference Range Interpretation Comments TSH, THIRD GENERATION (test code 0.565 UIU/ML = 2821) [id number] 00:00:00 Test Item Value Reference Range Interpretation Comments TSH, THIRD GENERATION (test code 0.565 UIU/ML = 2821) [id number] 00:00:00 Test Item Value Reference Range Interpretation Comments TSH, THIRD GENERATION (test code 0.565 UIU/ML = 2821) COMPREHENSIVE METABOLIC [id number] 00:00:00 Test Item Value Reference Range Interpretation Comments GLUCOSE (test code = 2217) 109 MG/DL BUN (test code = 2208) 25 MG/DL CREATININE (test code = 2214) 0.78 MG/DL eGFR AMER. (test code 98 ML/MIN/1.73 = 52276) eGFR NON- AMER. (test 84 ML/MIN/1.73 code = 29925) CALC BUN/CREAT (test code = 32 RATIO [...] code = 2219) 25 U/L COMPREHENSIVE METABOLIC [id number] 00:00:00 Test Item Value Reference Range Interpretation Comments GLUCOSE (test code = 2217) 109 MG/DL BUN (test code = 2208) 25 MG/DL CREATININE (test code = 2214) 0.78 MG/DL eGFR AMER. (test code 98 ML/MIN/1.73 = 65256) eGFR NON- AMER. (test 84 ML/MIN/1.73 code = 13326) CALC BUN/CREAT (test code = 32 RATIO [...] (test code = 2219) 25 U/L LIPID [id number] 00:00:00 Test Item Value Reference Range Interpretation Comments CHOLESTEROL (test code = 2210) 295 MG/DL TRIGLYCERIDES (test code = 2232) 218 MG/DL HDL CHOLESTEROL (test code = 2220) 46 MG/DL CALC LDL CHOL (test code = 2237) 205 MG/DL RISK RATIO LDL/HDL (test code = 4.47 RATIO 2238) LIPID [id number] 00:00:00 Test Item Value Reference Range Interpretation Comments CHOLESTEROL (test code = 2210) 295 MG/DL TRIGLYCERIDES (test code = 2232) 218 MG/DL HDL CHOLESTEROL (test code = 2220) 46 MG/DL CALC LDL CHOL (test code = 2237) 205 MG/DL RISK RATIO LDL/HDL (test code = 4.47 RATIO 2238) HEMOGLOBIN [id number] 00:00:00 Test Item Value Reference Range Interpretation Comments HEMOGLOBIN A1c (test code = 36663) 7.0 % HEMOGLOBIN [id number] 00:00:00 Test Item Value Reference Range Interpretation Comments HEMOGLOBIN A1c (test code = 03296) 7.0 % HEMOGLOBIN [id number] 00:00:00 Test Item Value Reference Range Interpretation Comments HEMOGLOBIN A1c (test code = 61014) 7.0 % [id number] 00:00:00 Test Item Value Reference Range Interpretation Comments TSH, THIRD GENERATION (test code 0.565 UIU/ML = 2821) [id number] 00:00:00 Test Item Value Reference Range Interpretation Comments TSH, THIRD GENERATION (test code 0.565 UIU/ML = 2821) [id number] 00:00:00 Test Item Value Reference Range Interpretation Comments TSH, THIRD GENERATION (test code 0.565 UIU/ML = 2821) COMPREHENSIVE METABOLIC [id number] 00:00:00 Test Item Value Reference Range Interpretation Comments GLUCOSE (test code = 2217) 109 MG/DL BUN (test code = 2208) 25 MG/DL CREATININE (test code = 2214) 0.78 MG/DL eGFR AMER. (test code 98 ML/MIN/1.73 = 57842) eGFR NON- AMER. (test 84 ML/MIN/1.73 code = 20001) CALC BUN/CREAT (test code = 32 RATIO [...] code = 2219) 25 U/L COMPREHENSIVE METABOLIC [id number] 00:00:00 Test Item Value Reference Range Interpretation Comments GLUCOSE (test code = 2217) 109 MG/DL BUN (test code = 2208) 25 MG/DL CREATININE (test code = 2214) 0.78 MG/DL eGFR AMER. (test code 98 ML/MIN/1.73 = 24640) eGFR NON- AMER. (test 84 ML/MIN/1.73 code = 41624) CALC BUN/CREAT (test code = 32 RATIO [...] (test code = 2219) 25 U/L LIPID [id number] 00:00:00 Test Item Value Reference Range Interpretation Comments CHOLESTEROL (test code = 2210) 295 MG/DL TRIGLYCERIDES (test code = 2232) 218 MG/DL HDL CHOLESTEROL (test code = 2220) 46 MG/DL CALC LDL CHOL (test code = 2237) 205 MG/DL RISK RATIO LDL/HDL (test code = 4.47 RATIO 2238) LIPID [id number] 00:00:00 Test Item Value Reference Range Interpretation Comments CHOLESTEROL (test code = 2210) 295 MG/DL TRIGLYCERIDES (test code = 2232) 218 MG/DL HDL CHOLESTEROL (test code = 2220) 46 MG/DL CALC LDL CHOL (test code = 2237) 205 MG/DL RISK RATIO LDL/HDL (test code = 4.47 RATIO 2238) HEMOGLOBIN [id number] 00:00:00 Test Item Value Reference Range Interpretation Comments HEMOGLOBIN A1c (test code = 07093) 7.0 % HEMOGLOBIN [id number] 00:00:00 Test Item Value Reference Range Interpretation Comments HEMOGLOBIN A1c (test code = 61798) 7.0 % HEMOGLOBIN [id number] 00:00:00 Test Item Value Reference Range Interpretation Comments HEMOGLOBIN A1c (test code = 99537) 7.0 % [id number] 00:00:00 Test Item Value Reference Range Interpretation Comments TSH, THIRD GENERATION (test code 0.565 UIU/ML = 2821) [id number] 00:00:00 Test Item Value Reference Range Interpretation Comments TSH, THIRD GENERATION (test code 0.565 UIU/ML = 2821) [id number] 00:00:00 Test Item Value Reference Range Interpretation Comments TSH, THIRD GENERATION (test code 0.565 UIU/ML = 2821) COMPREHENSIVE METABOLIC [id number] 00:00:00 Test Item Value Reference Range Interpretation Comments GLUCOSE (test code = 2217) 109 MG/DL BUN (test code = 2208) 25 MG/DL CREATININE (test code = 2214) 0.78 MG/DL eGFR AMER. (test code 98 ML/MIN/1.73 = 25399) eGFR NON- AMER. (test 84 ML/MIN/1.73 code = 03434) CALC BUN/CREAT (test code = 32 RATIO [...] (test code = 2219) 25 U/L LIPID [id number] 00:00:00 Test Item Value Reference Range Interpretation Comments CHOLESTEROL (test code = 2210) 295 MG/DL TRIGLYCERIDES (test code = 2232) 218 MG/DL HDL CHOLESTEROL (test code = 2220) 46 MG/DL CALC LDL CHOL (test code = 2237) 205 MG/DL RISK RATIO LDL/HDL (test code = 4.47 RATIO 2238) HEMOGLOBIN [id number] 00:00:00 Test Item Value Reference Range Interpretation Comments HEMOGLOBIN A1c (test code = 08928) 7.0 % HEMOGLOBIN [id number] 00:00:00 Test Item Value Reference Range Interpretation Comments HEMOGLOBIN A1c (test code = 28437) 7.0 % [id number] 00:00:00 Test Item Value Reference Range Interpretation Comments TSH, THIRD GENERATION (test code 0.565 UIU/ML = 2821) [id number] 00:00:00 Test Item Value Reference Range Interpretation Comments TSH, THIRD GENERATION (test code 0.565 UIU/ML = 2821) COMPREHENSIVE METABOLIC [id number] 00:00:00 Test Item Value Reference Range Interpretation Comments GLUCOSE (test code = 2217) 109 MG/DL BUN (test code = 2208) 25 MG/DL CREATININE (test code = 2214) 0.78 MG/DL eGFR AMER. (test code 98 ML/MIN/1.73 = 66660) eGFR NON- AMER. (test 84 ML/MIN/1.73 code = 96869) CALC BUN/CREAT (test code = 32 RATIO [...] code = 2219) 25 U/L COMPREHENSIVE METABOLIC [id number] 00:00:00 Test Item Value Reference Range Interpretation Comments GLUCOSE (test code = 2217) 109 MG/DL BUN (test code = 2208) 25 MG/DL CREATININE (test code = 2214) 0.78 MG/DL eGFR AMER. (test code 98 ML/MIN/1.73 = 41531) eGFR NON- AMER. (test 84 ML/MIN/1.73 code = 57535) CALC BUN/CREAT (test code = 32 RATIO [...] (test code = 2219) 25 U/L LIPID [id number] 00:00:00 Test Item Value Reference Range Interpretation Comments CHOLESTEROL (test code = 2210) 295 MG/DL TRIGLYCERIDES (test code = 2232) 218 MG/DL HDL CHOLESTEROL (test code = 2220) 46 MG/DL CALC LDL CHOL (test code = 2237) 205 MG/DL RISK RATIO LDL/HDL (test code = 4.47 RATIO 2238) LIPID [id number] 00:00:00 Test Item Value Reference Range Interpretation Comments CHOLESTEROL (test code = 2210) 295 MG/DL TRIGLYCERIDES (test code = 2232) 218 MG/DL HDL CHOLESTEROL (test code = 2220) 46 MG/DL CALC LDL CHOL (test code = 2237) 205 MG/DL RISK RATIO LDL/HDL (test code = 4.47 RATIO 2238) HEMOGLOBIN [id number] 00:00:00 Test Item Value Reference Range Interpretation Comments HEMOGLOBIN A1c (test code = 86083) 7.0 % HEMOGLOBIN [id number] 00:00:00 Test Item Value Reference Range Interpretation Comments HEMOGLOBIN A1c (test code = 04649) 7.0 % HEMOGLOBIN [id number] 00:00:00 Test Item Value Reference Range Interpretation Comments HEMOGLOBIN A1c (test code = 16287) 7.0 % [id number] 00:00:00 Test Item Value Reference Range Interpretation Comments TSH, THIRD GENERATION (test code 0.379 UIU/ML = 2821) [id number] 00:00:00 Test Item Value Reference Range Interpretation Comments TSH, THIRD GENERATION (test code 0.379 UIU/ML = 2821) [id number] 00:00:00 Test Item Value Reference Range Interpretation Comments TSH, THIRD GENERATION (test code 0.379 UIU/ML = 2821) [id number] 00:00:00 Test Item Value Reference Range Interpretation Comments TSH, THIRD GENERATION (test code 0.379 UIU/ML = 2821) [id number] 00:00:00 Test Item Value Reference Range Interpretation Comments TSH, THIRD GENERATION (test code 0.379 UIU/ML = 2821) [id number] 00:00:00 Test Item Value Reference Range Interpretation Comments TSH, THIRD GENERATION (test code 0.379 UIU/ML = 2821) [id number] 00:00:00 Test Item Value Reference Range Interpretation Comments TSH, THIRD GENERATION (test code 0.379 UIU/ML = 2821) [id number] 00:00:00 Test Item Value Reference Range Interpretation Comments TSH, THIRD GENERATION (test code 0.379 UIU/ML = 2821) [id number] 00:00:00 Test Item Value Reference Range Interpretation Comments TSH, THIRD GENERATION (test code 0.379 UIU/ML = 2821) [id number] 00:00:00 Test Item Value Reference Range Interpretation Comments TSH, THIRD GENERATION (test code 0.379 UIU/ML = 2821) [id number] 00:00:00 Test Item Value Reference Range Interpretation Comments TSH, THIRD GENERATION (test code 0.379 UIU/ML = 2821) CULTURE, [id number] 00:00:00 Test Item Value Reference Range Interpretation Comments CULTURE, URINE (test SPECIMEN NUMBER: code = 85318) [id number] CULTURE, [id number] 00:00:00 Test Item Value Reference Range Interpretation Comments CULTURE, URINE (test SPECIMEN NUMBER: code = 98676) [id number] CULTURE, [id number] 00:00:00 Test Item Value Reference Range Interpretation Comments CULTURE, URINE (test SPECIMEN NUMBER: code = 61409) [id number] CULTURE, [id number] 00:00:00 Test Item Value Reference Range Interpretation Comments CULTURE, URINE (test SPECIMEN NUMBER: code = 69279) [id number] CULTURE, [id number] 00:00:00 Test Item Value Reference Range Interpretation Comments CULTURE, URINE (test SPECIMEN NUMBER: code = 82663) [id number] CULTURE, [id number] 00:00:00 Test Item Value Reference Range Interpretation Comments CULTURE, URINE (test SPECIMEN NUMBER: code = 48836) [id number] CULTURE, [id number] 00:00:00 Test Item Value Reference Range Interpretation Comments CULTURE, URINE (test SPECIMEN NUMBER: code = 95411) [id number] COMPREHENSIVE METABOLIC [id number] 00:00:00 Test Item Value Reference Range Interpretation Comments GLUCOSE (test code = 2217) 128 MG/DL BUN (test code = 2208) 26 MG/DL CREATININE (test code = 2214) 0.92 MG/DL eGFR AMER. (test code 81 ML/MIN/1.73 = 99262) eGFR NON- AMER. (test 70 ML/MIN/1.73 code = 77399) CALC BUN/CREAT (test code = 28 RATIO [...] code = 2219) 29 U/L COMPREHENSIVE METABOLIC [id number] 00:00:00 Test Item Value Reference Range Interpretation Comments GLUCOSE (test code = 2217) 128 MG/DL BUN (test code = 2208) 26 MG/DL CREATININE (test code = 2214) 0.92 MG/DL eGFR AMER. (test code 81 ML/MIN/1.73 = 57915) eGFR NON- AMER. (test 70 ML/MIN/1.73 code = 37886) CALC BUN/CREAT (test code = 28 RATIO [...] code = 2219) 29 U/L ACUTE HEPATITIS [id number] 00:00:00 Test Item Value Reference Range Interpretation Comments HEPATITIS A IgM (test code = NON-REACTIVE 64748) HEPATITIS B CORE IgM (test code NON-REACTIVE = 4644) HEPATITIS B SURF AG (test code = NON-REACTIVE 2739) HEPATITIS C ANTIBODY (test code NON-REACTIVE = 4675) INTERPRETATION HEPATITIS A: (NOTE) (test code = 2552) INTERPRETATION HEPATITIS B: (NOTE) (test code = 68457) INTERPRETATION HEPATITIS C: (NOTE) (test code = 10740) ACUTE HEPATITIS [id number] 00:00:00 Test Item Value Reference Range Interpretation Comments HEPATITIS A IgM (test code = NON-REACTIVE 54549) HEPATITIS B CORE IgM (test code NON-REACTIVE = 4644) HEPATITIS B SURF AG (test code = NON-REACTIVE 2739) HEPATITIS C ANTIBODY (test code NON-REACTIVE = 4675) INTERPRETATION HEPATITIS A: (NOTE) (test code = 2552) INTERPRETATION HEPATITIS B: (NOTE) (test code = 39824) INTERPRETATION HEPATITIS C: (NOTE) (test code = 16562) [id number] 00:00:00 Test Item Value Reference Range Interpretation Comments AMYLASE (test code = 2205) 32 U/L [id number] 00:00:00 Test Item Value Reference Range Interpretation Comments AMYLASE (test code = 2205) 32 U/L [id number] 00:00:00 Test Item Value Reference Range Interpretation Comments LIPASE (test code = 2058) 22 U/L [id number] 00:00:00 Test Item Value Reference Range Interpretation Comments LIPASE (test code = 2058) 22 U/L [id number] 00:00:00 Test Item Value Reference Range Interpretation Comments LIPASE (test code = 2058) 22 U/L COMPREHENSIVE METABOLIC [id number] 00:00:00 Test Item Value Reference Range Interpretation Comments GLUCOSE (test code = 2217) 128 MG/DL BUN (test code = 2208) 26 MG/DL CREATININE (test code = 2214) 0.92 MG/DL eGFR AMER. (test code 81 ML/MIN/1.73 = 65408) eGFR NON- AMER. (test 70 ML/MIN/1.73 code = 93797) CALC BUN/CREAT (test code = 28 RATIO [...] code = 2219) 29 U/L COMPREHENSIVE METABOLIC [id number] 00:00:00 Test Item Value Reference Range Interpretation Comments GLUCOSE (test code = 2217) 128 MG/DL BUN (test code = 2208) 26 MG/DL CREATININE (test code = 2214) 0.92 MG/DL eGFR AMER. (test code 81 ML/MIN/1.73 = 13437) eGFR NON- AMER. (test 70 ML/MIN/1.73 code = 16299) CALC BUN/CREAT (test code = 28 RATIO [...] code = 2219) 29 U/L ACUTE HEPATITIS [id number] 00:00:00 Test Item Value Reference Range Interpretation Comments HEPATITIS A IgM (test code = NON-REACTIVE 75053) HEPATITIS B CORE IgM (test code NON-REACTIVE = 4644) HEPATITIS B SURF AG (test code = NON-REACTIVE 2739) HEPATITIS C ANTIBODY (test code NON-REACTIVE = 4675) INTERPRETATION HEPATITIS A: (NOTE) (test code = 2552) INTERPRETATION HEPATITIS B: (NOTE) (test code = 87695) INTERPRETATION HEPATITIS C: (NOTE) (test code = 23698) ACUTE HEPATITIS [id number] 00:00:00 Test Item Value Reference Range Interpretation Comments HEPATITIS A IgM (test code = NON-REACTIVE 25326) HEPATITIS B CORE IgM (test code NON-REACTIVE = 4644) HEPATITIS B SURF AG (test code = NON-REACTIVE 2739) HEPATITIS C ANTIBODY (test code NON-REACTIVE = 4675) INTERPRETATION HEPATITIS A: (NOTE) (test code = 2552) INTERPRETATION HEPATITIS B: (NOTE) (test code = 50927) INTERPRETATION HEPATITIS C: (NOTE) (test code = 08101) [id number] 00:00:00 Test Item Value Reference Range Interpretation Comments AMYLASE (test code = 2205) 32 U/L [id number] 00:00:00 Test Item Value Reference Range Interpretation Comments AMYLASE (test code = 2205) 32 U/L [id number] 00:00:00 Test Item Value Reference Range Interpretation Comments LIPASE (test code = 2058) 22 U/L [id number] 00:00:00 Test Item Value Reference Range Interpretation Comments LIPASE (test code = 2058) 22 U/L [id number] 00:00:00 Test Item Value Reference Range Interpretation Comments LIPASE (test code = 2058) 22 U/L COMPREHENSIVE METABOLIC [id number] 00:00:00 Test Item Value Reference Range Interpretation Comments GLUCOSE (test code = 2217) 128 MG/DL BUN (test code = 2208) 26 MG/DL CREATININE (test code = 2214) 0.92 MG/DL eGFR AMER. (test code 81 ML/MIN/1.73 = 41582) eGFR NON- AMER. (test 70 ML/MIN/1.73 code = 28657) CALC BUN/CREAT (test code = 28 RATIO [...] code = 2219) 29 U/L ACUTE HEPATITIS [id number] 00:00:00 Test Item Value Reference Range Interpretation Comments HEPATITIS A IgM (test code = NON-REACTIVE 70959) HEPATITIS B CORE IgM (test code NON-REACTIVE = 4549) HEPATITIS B SURF AG (test code = NON-REACTIVE 2816) HEPATITIS C ANTIBODY (test code NON-REACTIVE = 4673) INTERPRETATION HEPATITIS A: (NOTE) (test code = 2552) INTERPRETATION HEPATITIS B: (NOTE) (test code = 28356) INTERPRETATION HEPATITIS C: (NOTE) (test code = 98418) [id number] 00:00:00 Test Item Value Reference Range Interpretation Comments AMYLASE (test code = 2205) 32 U/L [id number] 00:00:00 Test Item Value Reference Range Interpretation Comments LIPASE (test code = 2058) 22 U/L [id number] 00:00:00 Test Item Value Reference Range Interpretation Comments LIPASE (test code = 2058) 22 U/L COMPREHENSIVE METABOLIC [id number] 00:00:00 Test Item Value Reference Range Interpretation Comments GLUCOSE (test code = 2217) 128 MG/DL BUN (test code = 2208) 26 MG/DL CREATININE (test code = 2214) 0.92 MG/DL eGFR AMER. (test code 81 ML/MIN/1.73 = 99112) eGFR NON- AMER. (test 70 ML/MIN/1.73 code = 20403) CALC BUN/CREAT (test code = 28 RATIO [...] code = 2219) 29 U/L COMPREHENSIVE METABOLIC [id number] 00:00:00 Test Item Value Reference Range Interpretation Comments GLUCOSE (test code = 2217) 128 MG/DL BUN (test code = 2208) 26 MG/DL CREATININE (test code = 2214) 0.92 MG/DL eGFR AMER. (test code 81 ML/MIN/1.73 = 78258) eGFR NON- AMER. (test 70 ML/MIN/1.73 code = 74258) CALC BUN/CREAT (test code = 28 RATIO [...] code = 2219) 29 U/L ACUTE HEPATITIS [id number] 00:00:00 Test Item Value Reference Range Interpretation Comments HEPATITIS A IgM (test code = NON-REACTIVE 65817) HEPATITIS B CORE IgM (test code NON-REACTIVE = 4644) HEPATITIS B SURF AG (test code = NON-REACTIVE 2739) HEPATITIS C ANTIBODY (test code NON-REACTIVE = 4675) INTERPRETATION HEPATITIS A: (NOTE) (test code = 2552) INTERPRETATION HEPATITIS B: (NOTE) (test code = 67465) INTERPRETATION HEPATITIS C: (NOTE) (test code = 07252) ACUTE HEPATITIS [id number] 00:00:00 Test Item Value Reference Range Interpretation Comments HEPATITIS A IgM (test code = NON-REACTIVE 44350) HEPATITIS B CORE IgM (test code NON-REACTIVE = 4644) HEPATITIS B SURF AG (test code = NON-REACTIVE 2739) HEPATITIS C ANTIBODY (test code NON-REACTIVE = 4675) INTERPRETATION HEPATITIS A: (NOTE) (test code = 2552) INTERPRETATION HEPATITIS B: (NOTE) (test code = 02210) INTERPRETATION HEPATITIS C: (NOTE) (test code = 45773) [id number] 00:00:00 Test Item Value Reference Range Interpretation Comments AMYLASE (test code = 2205) 32 U/L [id number] 00:00:00 Test Item Value Reference Range Interpretation Comments AMYLASE (test code = 2205) 32 U/L [id number] 00:00:00 Test Item Value Reference Range Interpretation Comments LIPASE (test code = 2058) 22 U/L [id number] 00:00:00 Test Item Value Reference Range Interpretation Comments LIPASE (test code = 2058) 22 U/L [id number] 00:00:00 Test Item Value Reference Range Interpretation Comments LIPASE (test code = 2058) 22 U/L [id number] 00:00:00 Test Item Value Reference Range Interpretation Comments TSH, THIRD GENERATION (test code 4.890 UIU/ML = 2821) [id number] 00:00:00 Test Item Value Reference Range Interpretation Comments TSH, THIRD GENERATION (test code 4.890 UIU/ML = 2821) [id number] 00:00:00 Test Item Value Reference Range Interpretation Comments TSH, THIRD GENERATION (test code 4.890 UIU/ML = 2821) COMPREHENSIVE METABOLIC [id number] 00:00:00 Test Item Value Reference Range Interpretation Comments GLUCOSE (test code = 2217) 121 MG/DL BUN (test code = 2208) 40 MG/DL CREATININE (test code = 2214) 1.48 MG/DL eGFR AMER. (test code 45 ML/MIN/1.73 = 24299) eGFR NON- AMER. (test 39 ML/MIN/1.73 code = 06919) CALC BUN/CREAT (test code = 27 RATIO [...] code = 2219) 20 U/L COMPREHENSIVE METABOLIC [id number] 00:00:00 Test Item Value Reference Range Interpretation Comments GLUCOSE (test code = 2217) 121 MG/DL BUN (test code = 2208) 40 MG/DL CREATININE (test code = 2214) 1.48 MG/DL eGFR AMER. (test code 45 ML/MIN/1.73 = 41204) eGFR NON- AMER. (test 39 ML/MIN/1.73 code = 98755) CALC BUN/CREAT (test code = 27 RATIO [...] ALT (test code = 2219) 20 U/L [id number] 00:00:00 Test Item Value Reference Range Interpretation Comments TSH, THIRD GENERATION (test code 4.890 UIU/ML = 2821) [id number] 00:00:00 Test Item Value Reference Range Interpretation Comments TSH, THIRD GENERATION (test code 4.890 UIU/ML = 2821) [id number] 00:00:00 Test Item Value Reference Range Interpretation Comments TSH, THIRD GENERATION (test code 4.890 UIU/ML = 2821) COMPREHENSIVE METABOLIC [id number] 00:00:00 Test Item Value Reference Range Interpretation Comments GLUCOSE (test code = 2217) 121 MG/DL BUN (test code = 2208) 40 MG/DL CREATININE (test code = 2214) 1.48 MG/DL eGFR AMER. (test code 45 ML/MIN/1.73 = 41698) eGFR NON- AMER. (test 39 ML/MIN/1.73 code = 46604) CALC BUN/CREAT (test code = 27 RATIO [...] code = 2219) 20 U/L COMPREHENSIVE METABOLIC [id number] 00:00:00 Test Item Value Reference Range Interpretation Comments GLUCOSE (test code = 2217) 121 MG/DL BUN (test code = 2208) 40 MG/DL CREATININE (test code = 2214) 1.48 MG/DL eGFR AMER. (test code 45 ML/MIN/1.73 = 73148) eGFR NON- AMER. (test 39 ML/MIN/1.73 code = 34259) CALC BUN/CREAT (test code = 27 RATIO [...] ALT (test code = 2219) 20 U/L [id number] 00:00:00 Test Item Value Reference Range Interpretation Comments TSH, THIRD GENERATION (test code 4.890 UIU/ML = 2821) [id number] 00:00:00 Test Item Value Reference Range Interpretation Comments TSH, THIRD GENERATION (test code 4.890 UIU/ML = 2821) COMPREHENSIVE METABOLIC [id number] 00:00:00 Test Item Value Reference Range Interpretation Comments GLUCOSE (test code = 2217) 121 MG/DL BUN (test code = 2208) 40 MG/DL CREATININE (test code = 2214) 1.48 MG/DL eGFR AMER. (test code 45 ML/MIN/1.73 = 04594) eGFR NON- AMER. (test 39 ML/MIN/1.73 code = 59473) CALC BUN/CREAT (test code = 27 RATIO [...] ALT (test code = 2219) 20 U/L [id number] 00:00:00 Test Item Value Reference Range Interpretation Comments TSH, THIRD GENERATION (test code 4.890 UIU/ML = 2821) [id number] 00:00:00 Test Item Value Reference Range Interpretation Comments TSH, THIRD GENERATION (test code 4.890 UIU/ML = 2821) [id number] 00:00:00 Test Item Value Reference Range Interpretation Comments TSH, THIRD GENERATION (test code 4.890 UIU/ML = 2821) COMPREHENSIVE METABOLIC [id number] 00:00:00 Test Item Value Reference Range Interpretation Comments GLUCOSE (test code = 2217) 121 MG/DL BUN (test code = 2208) 40 MG/DL CREATININE (test code = 2214) 1.48 MG/DL eGFR AMER. (test code 45 ML/MIN/1.73 = 85901) eGFR NON- AMER. (test 39 ML/MIN/1.73 code = 81622) CALC BUN/CREAT (test code = 27 RATIO [...] code = 2219) 20 U/L COMPREHENSIVE METABOLIC [id number] 00:00:00 Test Item Value Reference Range Interpretation Comments GLUCOSE (test code = 2217) 121 MG/DL BUN (test code = 2208) 40 MG/DL CREATININE (test code = 2214) 1.48 MG/DL eGFR AMER. (test code 45 ML/MIN/1.73 = 01575) eGFR NON- AMER. (test 39 ML/MIN/1.73 code = 62740) CALC BUN/CREAT (test code = 27 RATIO [...] (test code = 2219) 20 U/L LIPID [id number] 00:00:00 Test Item Value Reference Range Interpretation Comments CHOLESTEROL (test code = 2210) 261 MG/DL TRIGLYCERIDES (test code = 2232) 165 MG/DL HDL CHOLESTEROL (test code = 2220) 58 MG/DL CALC LDL CHOL (test code = 2237) 170 MG/DL RISK RATIO LDL/HDL (test code = 2.93 RATIO 2238) LIPID [id number] 00:00:00 Test Item Value Reference Range Interpretation Comments CHOLESTEROL (test code = 2210) 261 MG/DL TRIGLYCERIDES (test code = 2232) 165 MG/DL HDL CHOLESTEROL (test code = 2220) 58 MG/DL CALC LDL CHOL (test code = 2237) 170 MG/DL RISK RATIO LDL/HDL (test code = 2.93 RATIO 2238) CBC W/AUTO [id number] 00:00:00 Test Item Value Reference Range Interpretation [...] code = 1015) 378 K/UL CBC W/AUTO [id number] 00:00:00 Test Item Value Reference Range Interpretation [...] code = 1015) 378 K/UL CBC W/AUTO [id number] 00:00:00 Test Item Value Reference Range Interpretation [...] (test code = 1015) 378 K/UL HEMOGLOBIN [id number] 00:00:00 Test Item Value Reference Range Interpretation Comments HEMOGLOBIN A1c (test code = 28530) 6.4 % HEMOGLOBIN [id number] 00:00:00 Test Item Value Reference Range Interpretation Comments HEMOGLOBIN A1c (test code = 67056) 6.4 % HEMOGLOBIN [id number] 00:00:00 Test Item Value Reference Range Interpretation Comments HEMOGLOBIN A1c (test code = 71026) 6.4 % [id number] 00:00:00 Test Item Value Reference Range Interpretation Comments TSH (test code = 2821) 5.290 UIU/ML [id number] 00:00:00 Test Item Value Reference Range Interpretation Comments TSH (test code = 2821) 5.290 UIU/ML [id number] 00:00:00 Test Item Value Reference Range Interpretation Comments TSH (test code = 2821) 5.290 UIU/ML LIPID [id number] 00:00:00 Test Item Value Reference Range Interpretation Comments CHOLESTEROL (test code = 2210) 261 MG/DL TRIGLYCERIDES (test code = 2232) 165 MG/DL HDL CHOLESTEROL (test code = 2220) 58 MG/DL CALC LDL CHOL (test code = 2237) 170 MG/DL RISK RATIO LDL/HDL (test code = 2.93 RATIO 2238) LIPID [id number] 00:00:00 Test Item Value Reference Range Interpretation Comments CHOLESTEROL (test code = 2210) 261 MG/DL TRIGLYCERIDES (test code = 2232) 165 MG/DL HDL CHOLESTEROL (test code = 2220) 58 MG/DL CALC LDL CHOL (test code = 2237) 170 MG/DL RISK RATIO LDL/HDL (test code = 2.93 RATIO 2238) CBC W/AUTO [id number] 00:00:00 Test Item Value Reference Range Interpretation [...] code = 1015) 378 K/UL CBC W/AUTO [id number] 00:00:00 Test Item Value Reference Range Interpretation [...] code = 1015) 378 K/UL CBC W/AUTO [id number] 00:00:00 Test Item Value Reference Range Interpretation [...] (test code = 1015) 378 K/UL HEMOGLOBIN [id number] 00:00:00 Test Item Value Reference Range Interpretation Comments HEMOGLOBIN A1c (test code = 31580) 6.4 % HEMOGLOBIN [id number] 00:00:00 Test Item Value Reference Range Interpretation Comments HEMOGLOBIN A1c (test code = 68147) 6.4 % HEMOGLOBIN [id number] 00:00:00 Test Item Value Reference Range Interpretation Comments HEMOGLOBIN A1c (test code = 70996) 6.4 % [id number] 00:00:00 Test Item Value Reference Range Interpretation Comments TSH (test code = 2821) 5.290 UIU/ML [id number] 00:00:00 Test Item Value Reference Range Interpretation Comments TSH (test code = 2821) 5.290 UIU/ML [id number] 00:00:00 Test Item Value Reference Range Interpretation Comments TSH (test code = 2821) 5.290 UIU/ML LIPID [id number] 00:00:00 Test Item Value Reference Range Interpretation Comments CHOLESTEROL (test code = 2210) 261 MG/DL TRIGLYCERIDES (test code = 2232) 165 MG/DL HDL CHOLESTEROL (test code = 2220) 58 MG/DL CALC LDL CHOL (test code = 2237) 170 MG/DL RISK RATIO LDL/HDL (test code = 2.93 RATIO 2238) CBC W/AUTO [id number] 00:00:00 Test Item Value Reference Range Interpretation [...] code = 1015) 378 K/UL CBC W/AUTO [id number] 00:00:00 Test Item Value Reference Range Interpretation [...] (test code = 1015) 378 K/UL HEMOGLOBIN [id number] 00:00:00 Test Item Value Reference Range Interpretation Comments HEMOGLOBIN A1c (test code = 13900) 6.4 % HEMOGLOBIN [id number] 00:00:00 Test Item Value Reference Range Interpretation Comments HEMOGLOBIN A1c (test code = 41846) 6.4 % [id number] 00:00:00 Test Item Value Reference Range Interpretation Comments TSH (test code = 2821) 5.290 UIU/ML [id number] 00:00:00 Test Item Value Reference Range Interpretation Comments TSH (test code = 2821) 5.290 UIU/ML LIPID [id number] 00:00:00 Test Item Value Reference Range Interpretation Comments CHOLESTEROL (test code = 2210) 261 MG/DL TRIGLYCERIDES (test code = 2232) 165 MG/DL HDL CHOLESTEROL (test code = 2220) 58 MG/DL CALC LDL CHOL (test code = 2237) 170 MG/DL RISK RATIO LDL/HDL (test code = 2.93 RATIO 2238) LIPID [id number] 00:00:00 Test Item Value Reference Range Interpretation Comments CHOLESTEROL (test code = 2210) 261 MG/DL TRIGLYCERIDES (test code = 2232) 165 MG/DL HDL CHOLESTEROL (test code = 2220) 58 MG/DL CALC LDL CHOL (test code = 2237) 170 MG/DL RISK RATIO LDL/HDL (test code = 2.93 RATIO 2238) CBC W/AUTO [id number] 00:00:00 Test Item Value Reference Range Interpretation [...] code = 1015) 378 K/UL CBC W/AUTO [id number] 00:00:00 Test Item Value Reference Range Interpretation [...] code = 1015) 378 K/UL CBC W/AUTO [id number] 00:00:00 Test Item Value Reference Range Interpretation [...] (test code = 1015) 378 K/UL HEMOGLOBIN [id number] 00:00:00 Test Item Value Reference Range Interpretation Comments HEMOGLOBIN A1c (test code = 77282) 6.4 % HEMOGLOBIN [id number] 00:00:00 Test Item Value Reference Range Interpretation Comments HEMOGLOBIN A1c (test code = 84912) 6.4 % HEMOGLOBIN [id number] 00:00:00 Test Item Value Reference Range Interpretation Comments HEMOGLOBIN A1c (test code = 60392) 6.4 % [id number] 00:00:00 Test Item Value Reference Range Interpretation Comments TSH (test code = 2821) 5.290 UIU/ML [id number] 00:00:00 Test Item Value Reference Range Interpretation Comments TSH (test code = 2821) 5.290 UIU/ML [id number] 00:00:00 Test Item Value Reference Range Interpretation [...] code = 2821) 1.030 UIU/ML COMPREHENSIVE METABOLIC [id number] 00:00:00 Test Item Value Reference Range Interpretation Comments GLUCOSE (test code = 2217) 106 MG/DL BUN (test code = 2208) 23 MG/DL CREATININE (test code = 2214) 0.66 MG/DL eGFR AMER. (test code 114 ML/MIN/1.73 = 95304) eGFR NON- AMER. (test 99 ML/MIN/1.73 code = 88826) CALC BUN/CREAT (test code = 35 RATIO [...] code = 2219) 31 U/L COMPREHENSIVE METABOLIC [id number] 00:00:00 Test Item Value Reference Range Interpretation Comments GLUCOSE (test code = 2217) 106 MG/DL BUN (test code = 2208) 23 MG/DL CREATININE (test code = 2214) 0.66 MG/DL eGFR AMER. (test code 114 ML/MIN/1.73 = 58413) eGFR NON- AMER. (test 99 ML/MIN/1.73 code = 03699) CALC BUN/CREAT (test code = 35 RATIO [...] code = 2821) 0.335 UIU/ML COMPREHENSIVE METABOLIC [id number] 00:00:00 Test Item Value Reference Range Interpretation Comments GLUCOSE (test code = 2217) 106 MG/DL BUN (test code = 2208) 23 MG/DL CREATININE (test code = 2214) 0.66 MG/DL eGFR AMER. (test code 114 ML/MIN/1.73 = 67485) eGFR NON- AMER. (test 99 ML/MIN/1.73 code = 91716) CALC BUN/CREAT (test code = 35 RATIO [...] code = 2219) 31 U/L COMPREHENSIVE METABOLIC [id number] 00:00:00 Test Item Value Reference Range Interpretation Comments GLUCOSE (test code = 2217) 106 MG/DL BUN (test code = 2208) 23 MG/DL CREATININE (test code = 2214) 0.66 MG/DL eGFR AMER. (test code 114 ML/MIN/1.73 = 08074) eGFR NON- AMER. (test 99 ML/MIN/1.73 code = 08099) CALC BUN/CREAT (test code = 35 RATIO [...] code = 2821) 0.335 UIU/ML COMPREHENSIVE METABOLIC [id number] 00:00:00 Test Item Value Reference Range Interpretation Comments GLUCOSE (test code = 2217) 106 MG/DL BUN (test code = 2208) 23 MG/DL CREATININE (test code = 2214) 0.66 MG/DL eGFR AMER. (test code 114 ML/MIN/1.73 = 41313) eGFR NON- AMER. (test 99 ML/MIN/1.73 code = 06789) CALC BUN/CREAT (test code = 35 RATIO [...] code = 2821) 0.335 UIU/ML COMPREHENSIVE METABOLIC [id number] 00:00:00 Test Item Value Reference Range Interpretation Comments GLUCOSE (test code = 2217) 106 MG/DL BUN (test code = 2208) 23 MG/DL CREATININE (test code = 2214) 0.66 MG/DL eGFR AMER. (test code 114 ML/MIN/1.73 = 80790) eGFR NON- AMER. (test 99 ML/MIN/1.73 code = 73397) CALC BUN/CREAT (test code = 35 RATIO [...] code = 2219) 31 U/L COMPREHENSIVE METABOLIC [id number] 00:00:00 Test Item Value Reference Range Interpretation Comments GLUCOSE (test code = 2217) 106 MG/DL BUN (test code = 2208) 23 MG/DL CREATININE (test code = 2214) 0.66 MG/DL eGFR AMER. (test code 114 ML/MIN/1.73 = 86512) eGFR NON- AMER. (test 99 ML/MIN/1.73 code = 28883) CALC BUN/CREAT (test code = 35 RATIO [...] code = 2821) 0.335 UIU/ML COMPREHENSIVE METABOLIC [id number] 00:00:00 Test Item Value Reference Range Interpretation Comments GLUCOSE (test code = 2217) 103 MG/DL BUN (test code = 2208) 15 MG/DL CREATININE (test code = 2214) 0.77 MG/DL eGFR AMER. (test code 101 ML/MIN/1.73 = 37382) eGFR NON- AMER. (test 87 ML/MIN/1.73 code = 15782) CALC BUN/CREAT (test code = 19 RATIO [...] code = 2219) 24 U/L COMPREHENSIVE METABOLIC [id number] 00:00:00 Test Item Value Reference Range Interpretation Comments GLUCOSE (test code = 2217) 103 MG/DL BUN (test code = 2208) 15 MG/DL CREATININE (test code = 2214) 0.77 MG/DL eGFR AMER. (test code 101 ML/MIN/1.73 = 27027) eGFR NON- AMER. (test 87 ML/MIN/1.73 code = 44674) CALC BUN/CREAT (test code = 19 RATIO [...] code = 2821) 0.424 UIU/ML COMPREHENSIVE METABOLIC [id number] 00:00:00 Test Item Value Reference Range Interpretation Comments GLUCOSE (test code = 2217) 103 MG/DL BUN (test code = 2208) 15 MG/DL CREATININE (test code = 2214) 0.77 MG/DL eGFR AMER. (test code 101 ML/MIN/1.73 = 33652) eGFR NON- AMER. (test 87 ML/MIN/1.73 code = 56681) CALC BUN/CREAT (test code = 19 RATIO [...] code = 2219) 24 U/L COMPREHENSIVE METABOLIC [id number] 00:00:00 Test Item Value Reference Range Interpretation Comments GLUCOSE (test code = 2217) 103 MG/DL BUN (test code = 2208) 15 MG/DL CREATININE (test code = 2214) 0.77 MG/DL eGFR AMER. (test code 101 ML/MIN/1.73 = 75304) eGFR NON- AMER. (test 87 ML/MIN/1.73 code = 27682) CALC BUN/CREAT (test code = 19 RATIO [...] code = 2821) 0.424 UIU/ML COMPREHENSIVE METABOLIC [id number] 00:00:00 Test Item Value Reference Range Interpretation Comments GLUCOSE (test code = 2217) 103 MG/DL BUN (test code = 2208) 15 MG/DL CREATININE (test code = 2214) 0.77 MG/DL eGFR AMER. (test code 101 ML/MIN/1.73 = 78743) eGFR NON- AMER. (test 87 ML/MIN/1.73 code = 85538) CALC BUN/CREAT (test code = 19 RATIO [...] code = 2821) 0.424 UIU/ML COMPREHENSIVE METABOLIC [id number] 00:00:00 Test Item Value Reference Range Interpretation Comments GLUCOSE (test code = 2217) 103 MG/DL BUN (test code = 2208) 15 MG/DL CREATININE (test code = 2214) 0.77 MG/DL eGFR AMER. (test code 101 ML/MIN/1.73 = 49700) eGFR NON- AMER. (test 87 ML/MIN/1.73 code = 84882) CALC BUN/CREAT (test code = 19 RATIO [...] code = 2219) 24 U/L COMPREHENSIVE METABOLIC [id number] 00:00:00 Test Item Value Reference Range Interpretation Comments GLUCOSE (test code = 2217) 103 MG/DL BUN (test code = 2208) 15 MG/DL CREATININE (test code = 2214) 0.77 MG/DL eGFR AMER. (test code 101 ML/MIN/1.73 = 76944) eGFR NON- AMER. (test 87 ML/MIN/1.73 code = 16455) CALC BUN/CREAT (test code = 19 RATIO [...] (test code = 2821) 0.424 UIU/ML CULTURE, [id number] 00:00:00 Test Item Value Reference Range Interpretation Comments CULTURE, URINE (test SPECIMEN NUMBER: code = 75980) [id number] CULTURE, [id number] 00:00:00 Test Item Value Reference Range Interpretation Comments CULTURE, URINE (test SPECIMEN NUMBER: code = 94805) [id number] CULTURE, [id number] 00:00:00 Test Item Value Reference Range Interpretation Comments CULTURE, URINE (test SPECIMEN NUMBER: code = 12432) [id number] CULTURE, [id number] 00:00:00 Test Item Value Reference Range Interpretation Comments CULTURE, URINE (test SPECIMEN NUMBER: code = 19495) [id number] CULTURE, [id number] 00:00:00 Test Item Value Reference Range Interpretation Comments CULTURE, URINE (test SPECIMEN NUMBER: code = 13159) [id number] CULTURE, [id number] 00:00:00 Test Item Value Reference Range Interpretation Comments CULTURE, URINE (test SPECIMEN NUMBER: code = 05322) [id number] CULTURE, [id number] 00:00:00 Test Item Value Reference Range Interpretation Comments CULTURE, URINE (test SPECIMEN NUMBER: code = 66753) [id number] CULTURE, [id number] 00:00:00 Test Item Value Reference Range Interpretation Comments CULTURE, URINE (test SPECIMEN NUMBER: code = 48906) [id number] CULTURE, [id number] 00:00:00 Test Item Value Reference Range Interpretation Comments CULTURE, URINE (test SPECIMEN NUMBER: code = 04263) [id number] CULTURE, [id number] 00:00:00 Test Item Value Reference Range Interpretation Comments CULTURE, URINE (test SPECIMEN NUMBER: code = 00295) [id number] CULTURE, [id number] 00:00:00 Test Item Value Reference Range Interpretation Comments CULTURE, URINE (test SPECIMEN NUMBER: code = 25491) [id number] CULTURE, [id number] 00:00:00 Test Item Value Reference Range Interpretation Comments CULTURE, URINE (test SPECIMEN NUMBER: code = 29823) [id number] CULTURE, [id number] 00:00:00 Test Item Value Reference Range Interpretation Comments CULTURE, URINE (test SPECIMEN NUMBER: code = 65652) [id number] CULTURE, [id number] 00:00:00 Test Item Value Reference Range Interpretation Comments CULTURE, URINE (test SPECIMEN NUMBER: code = 75791) [id number]
[2022-12-25] MEDS ORDERED: MORPHINE 4 MG/ML SYR ONE (00:25)
[2022-12-25] MEDS ORDERED: ONDANSETRON 4 MG/2 ML VIAL ONE (00:26)
[2022-12-25 00:35] LABS: Specific Gravity 1.011 (1.005-1.030); Urine Bacteria None Seen /HPF (<20); Urine Bilirubin NEGATIVE (Negative); Urine Blood Negative (Negative); Urine Clarity Clear (Clear); Urine Color Colorless (Yellow); Urine Glucose NEGATIVE (Negative); Urine Protein NEGATIVE (Negative); Urine RBC <5 /HPF (None Seen); Urine Urobilinogen Normal (Normal); Urine pH 7.5 (5.0-7.0)
[2022-12-25 00:40] LABS: Absolute Lymphocytes (CBC) 2.1 K/uL (0.7-4.9); Hematocrit 36.8 % (36.0-45.0); Lymphocytes % 24.3 % (15.3-44.8); MPV 6.6 fL (7.6-11.3); Platelets 298 thou/uL (152-406); RBC Red Blood Cell Count 4.18 M/uL (3.86-4.86)
[2022-12-25] MEDS ORDERED: PROMETHAZINE INJ 25 MG/ML AMP ONE (01:03)
[2022-12-25 01:05] LABS: Albumin 3.5 g/dL (3.4-5.0); Bilirubin Total 0.3 mg/dL (0.2-1.0); Protein, Total 7.9 g/dL (6.4-8.2)
[2022-12-25 01:06] LABS: Potassium 3.6 mEq/L (3.5-5.1)
--- NOTE | 2022-12-25 01:12 | ER ---
Nurse's Notes [facility] Name: Jaimie Amanda Age: 62 yrs Sex: Female : 1960 Arrival Date: 12/24/2022 Time: 23:45 Bed IW10 Private MD: Diagnosis: Abdominal pain, Generalized;Nausea with vomiting, unspecified;Hyponatremia, chronic Presentation: 12/24 23:52 Chief complaint: Patient states: she has a "real by tummy ache. 10 out of 10". Patient ap3 reports the pain began this morning. Patient reports vomiting X's 1. Coronavirus screen: At this time, the client does not indicate any symptoms associated with coronavirus-19. Ebola Screen: No symptoms or risks identified at this time. Initial Sepsis Screen: Does the patient meet any 2 criteria? No. Patient's initial sepsis screen is negative. Does the patient have a suspected source of infection? No. Patient's initial sepsis screen is negative. Risk Assessment: Do you want to hurt yourself or someone else? Patient reports no desire to harm self or others. Onset of symptoms was December 24, 2022. 23:52 Method Of Arrival: Ambulatory ap3 23:52 Acuity: ZHEN 3 ap3 Triage Assessment: 23:53 General: Appears in no apparent distress. Behavior is anxious. Pain: Complains of pain ap3 in abdomen Pain currently is 10 out of 10 on a pain scale. Neuro: Level of Consciousness is awake, alert, obeys commands, Oriented to person, place, time, situation. Cardiovascular: Patient's skin is warm and dry. Respiratory: Airway is patent Respiratory effort is even, unlabored, Respiratory pattern is regular, symmetrical. GI: Reports lower abdominal pain, upper abdominal pain, nausea, vomiting. Historical: - Allergies: 23:53 hydrochlorothiazide; ap3 - PMHx: 23:53 Anxiety; Anxiety; Anxiety; Chronic Abdominal Pain; Hypertensive disorder; ap3 Hypothyroidism; low NA; NIDDM; - PSHx: 23:53 Thyroidectomy; ap3 - Immunization history:: Client reports receiving the 2nd dose of the Covid vaccine. - Social history:: Smoking status: Patient reports the use of cigarette tobacco products, smokes one pack cigarettes per day. Screenin:54 [facility] ED Fall Risk Assessment (Adult) History of falling in the last 3 months, ap3 including since admission No falls in past 3 months (0 pts). Abuse screen: Denies threats or abuse. Nutritional screening: No deficits noted. Tuberculosis screening:. Assessment: 12/25 00:50 Reassessment: PT STATING SHE FEELS BETTER AND WANTS TO LEAVE. PT INFORMED SHE MUST SIGN jj7 AMA PAPER IF SHE CHOSE TO LEAVE. 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 Vital Signs: 12/24 23:52 BP 189 / 96; Pulse 89; Resp 18; Temp 97.3; Pulse Ox 100% ; Weight 70.31 kg; Pain 10/10; ap3 23:52 Pain Scale: Adult ap3 ED Course: 23:47 Patient arrived in ED. mr 23:47 Dior Garcia PA-C is PHCP. sb4 23:47 Sebastian Devlin MD is Attending Physician. sb4 23:53 Triage completed. ap3 23:54 Arm band placed on right wrist. ap3 12/25 00:03 Aleyda Virk RN is Primary Nurse. jj7 00:30 Inserted saline lock: 20 gauge in left antecubital area, using aseptic technique. Blood jj7 collected. 00:31 CBC with Diff Sent. jj7 00:31 CMP Sent. jj7 00:31 Lipase Sent. jj7 00:31 Urine Osmolality Sent. jj7 00:31 Osmolality, Serum Sent. jj7 00:31 Urine Sodium Random Sent. jj7 00:31 UAM Sent. jj7 01:30 Bed in low position. Call light in reach. Provided Education on: follow up. as6 01:30 No provider procedures requiring assistance completed. IV discontinued, intact, as6 bleeding controlled, No redness/swelling at site. Pressure dressing applied. Administered Medications: 00:36 Drug: Ondansetron IVP 4 mg IVP once; over 2 minutes Route: IVP; Site: left antecubital; jj7 00:59 Follow up: Response: Nausea is decreased jj7 00:36 Drug: morphine IVP or IV 4 mg IVP once over 4 mins Route: IVP; Infused Over: 4 mins; jj7 Site: left antecubital; 01:00 Follow up: Response: Marked relief of symptoms jj7 00:55 Drug: Promethazine IVP 12.5 mg IVP once Route: IVP; Site: left antecubital; jj7 01:00 Follow up: Response: No adverse reaction jj7 Medication: 01:30 VIS not applicable for this client. as6 Outcome: 01:12 Discharge ordered by MD. [email or web address] 01:30 Discharged to home ambulatory, with family, as6 01:30 Condition: stable 01:30 Discharge instructions given to patient, Instructed on discharge instructions, follow up and referral plans. Demonstrated understanding of instructions, follow-up care, 01:31 Patient left the ED. as6 Signatures: Radha Messina, Reg Reg mr MattElisa, RN RN ap3 Antony Mccallum, RN RN as6 Aleyda Virk RN RN jj7 Dior Garcia, PA-Esther PARadha [email or web address] Corrections: (The following items were deleted from the chart) 01:03 00:50 Reassessment: PT STATING SHE FEELS BETTER AND WANTS TO LEAVE. PT INFORMED SHE jj7 MUST SIGN AMA PAPER. jj7
--- NOTE | 2022-12-25 01:12 | EDPHYS ---
Physician Documentation [facility] Name: Jaimie Amanda Age: 62 yrs Sex: Female : 1960 Arrival Date: 12/24/2022 Time: 23:45 Bed IW10 Private MD: ED Physician Sebastian Devlin HPI: 12/25 01:07 This 62 yrs old Female presents to ER via Ambulatory with complaints of Abdominal Pain, sb4 Vomiting. 01:07 The patient presents with abdominal pain that is diffuse. Onset: The symptoms/episode sb4 began/occurred this morning. The symptoms do not radiate. Associated signs and symptoms: Pertinent positives: nausea and vomiting. The patient has experienced similar episodes in the past, chronically. The patient has not recently seen a physician. Historical: - Allergies: 12/24 23:53 hydrochlorothiazide; ap3 - PMHx: 23:53 Anxiety; Anxiety; Anxiety; Chronic Abdominal Pain; Hypertensive disorder; ap3 Hypothyroidism; low NA; NIDDM; - PSHx: 23:53 Thyroidectomy; ap3 - Immunization history:: Client reports receiving the 2nd dose of the Covid vaccine. - Social history:: Smoking status: Patient reports the use of cigarette tobacco products, smokes one pack cigarettes per day. ROS: 12/25 01:08 Constitutional: Negative for fever, chills, and weight loss, sb4 Abdomen/GI: Positive for abdominal pain, nausea and vomiting, All other systems are negative, Exam: 01:08 Constitutional: This is a well developed, well nourished patient who is awake, alert, sb4 and in no acute distress. Head/Face: Normocephalic, atraumatic. Eyes: Extra-ocular motions intact. Periorbital areas with no swelling, redness, or edema. ENT: Mucous membranes moist. Cardiovascular: Regular rate and rhythm with a normal S1 and S2. Respiratory: Lungs have equal breath sounds bilaterally, clear to auscultation and percussion. No rales, rhonchi or wheezes noted. No increased work of breathing, no retractions or nasal flaring. Abdomen/GI: Soft, non-tender, no distension. Skin: Warm, dry with normal turgor. Normal color with no rashes, no lesions, and no evidence of cellulitis. MS/ Extremity: Pulses equal, no cyanosis. Neurovascular intact. Full, normal range of motion. Vital Signs: 12/24 23:52 BP 189 / 96; Pulse 89; Resp 18; Temp 97.3; Pulse Ox 100% ; Weight 70.31 kg; Pain 10/10; ap3 23:52 Pain Scale: Adult ap3 MDM: 23:52 Patient medically screened. sb4 12/25 01:08 Differential diagnosis: appendicitis, cholecystitis, Cholelithiasis, diverticulitis, sb4 gastritis, non-specific abd pain, pancreatitis. Data reviewed: vital signs, nurses notes, lab test result(s), and as a result, I will discharge patient. Test considered but Not performed: CT: patient refused. Care significantly affected by the following chronic conditions: Hypertension, hyponatremia. Refusal of service: The patient/guardian displays adequate decision making capability and despite a detailed discussion of alternatives, benefits, risks, and consequences refuses: CT Scan. ED course: patient requesting to leave prior to labs being back. states she feels better after pain and nausea medication. counseled on the need to stay, she refused. return precautions given, she understands. sodium resulted at 121, which is chronic for patient. she is asymptomatic. takes sodium pills daily. 12/24 23:59 Order name: CBC with Diff; Complete Time: 00:42 sb4 12/24 23:59 Order name: CMP; Complete Time: 01:06 sb4 12/24 23:59 Order name: Lipase; Complete Time: 01:06 sb4 12/24 23:59 Order name: UAM; Complete Time: 00:37 sb4 12/24 23:59 Order name: Urine Sodium Random; Complete Time: 00:37 sb4 12/24 23:59 Order name: Osmolality, Serum; Complete Time: 02:20 sb4 12/24 23:59 Order name: Urine Osmolality; Complete Time: 01:06 sb4 12/24 23:59 Order name: IV Saline Lock; Complete Time: 00:31 sb4 12/24 23:59 Order name: Labs collected and sent; Complete Time: 00:31 sb4 Administered Medications: 00:36 Drug: Ondansetron IVP 4 mg IVP once; over 2 minutes Route: IVP; Site: left antecubital; jj7 00:59 Follow up: Response: Nausea is decreased jj7 00:36 Drug: morphine IVP or IV 4 mg IVP once over 4 mins Route: IVP; Infused Over: 4 mins; jj7 Site: left antecubital; 01:00 Follow up: Response: Marked relief of symptoms jj7 00:55 Drug: Promethazine IVP 12.5 mg IVP once Route: IVP; Site: left antecubital; jj7 01:00 Follow up: Response: No adverse reaction jj7 Disposition Summary: 12/25/22 01:12 Discharge Ordered Notes: Location: Home sb4 Problem: an ongoing problem sb4 Symptoms: have improved sb4 Condition: Stable sb4 Diagnosis - Abdominal pain, Generalized sb4 - Nausea with vomiting, unspecified sb4 - Hyponatremia, chronic sb4 Followup: sb4 - With: Emergency Department - When: As needed - Reason: Trouble breathing, Worsening of condition Forms: - Medication Reconciliation Form sb4 - Thank You Letter sb4 - Antibiotic Education sb4 - Prescription Opioid Use sb4 - Patient Portal Instructions sb4 - Leadership Thank You Letter sb4 Addendum: 12/26/2022 02:01 Co-signature as Attending Physician, Sebastian Devlin MD. e c2 Signatures: Dispatcher [employer] Elisa Adhikari RN RN ap3 Aleyda Virk RN RN jj7 Dior Garcia PA-C PA-C sb4 Sebastian Devlin MD MD ec2
[2022-12-25 03:18] VITALS: BP 189/96; TEMP 97.3; O2SAT 100
== END 2022-12-25 01:31 | disposition home or self-care (01) ==
LOC: ER 23:45
DX: R10.84 Generalized abdominal pain (principal); E87.1 Hypo-osmolality and hyponatremia; R11.2 Nausea with vomiting, unspecified; F17.210 Nicotine dependence, cigarettes, uncomplicated; I10 Essential (primary) hypertension; Z88.8 Allergy status to other drugs, medicaments and biological substances
CPT/HCPCS: 85025; 81001; 36415; 84300; 83690; 80053; 83930; 83935; 96375; 96374; 99284; J2550; J2405

== ENCOUNTER 2023-01-28 05:47 | Emergency (ER) | payer OTHER ==
--- OUTSIDE RECORDS SUMMARY | 2023-01-28 06:00 | XMS REPORT | Continuity of Care Document ---
:1960 Author Organization [facility] t Address [address] [place] [address] [place] [address] Care Team Providers Name Role Phone Sharpless Primary Care Physician MATT SIMPSON Attending Clinician Unavailable MATT SIMPSON Attending Clinician Unavailable Doctor Unassigned, [place] Attending Clinician Unavailable WALLY KRISHNAMURTHY Attending Clinician Unavailable Natacha Brewster Attending Clinician Payers Payer Name Policy Type Policy Number Effective Date Expiration Date Sarina castelan [facility] [id number] 2017 00:00:00 PLUS Problems This patient has [...] s TRANSDER - ity of MAL 00:00: [place] [facility] ACETAMIN DRUG Active Other-Cmnt Univ ers OPHEN INGREDI 07-27 ity of 00:00: [place] [address] [facility] Hmg-Coa Propensi Inactiv Reductas ty to e 2-28 e adverse 00:00: Inhibito reaction 00 rs to drug Nitrogly Propensi Active 2017-03 cerin ty to 1-08 adverse 00:00: reaction 00 to drug Social History Social Habit Start Date Stop Date Quantity Comments Source Sexual orientation [facility] History of tobacco Smokes tobacco [facility] use daily [facility] Alcohol intake 2016-05-01 2016-05-01 Current [facility] es 00:00:00 00:00:00 non-drinker of Medical Ce nter alcohol (finding) Sex Ass[birth year] At [birth year] [facility] kes 00:00:00 00:00:00 [facility] Smoking Status Start Date Stop Date [...] TAKE 2 2022-0 No 750 TABLETS BY 902 MOUTH THREE [...] [facility] 10:23: nightly. [address] OXcarbazepi 2017-0 Yes 600mg Q.[id number] Take [address] [facility] [address] ne 2-23 [id number] [facility] (TRILEPTAL) 10:23: 3D mouth 3 Med ical 600 [facility] 59 (three) Center tablet times daily. PARoxetine 2017-0 Yes 40mg QD Take [address] (PAXIL) 40 2-23 by mouth [facility] tablet 10:23: nightly. [address] OXcarbazepi 2017-0 Yes 600mg Q.[id number] Take [address] ne 2-23 [id number] [facility] (TRILEPTAL) 10:23: 3D mouth 3 Med ical 600 [facility] 59 (three) Center tablet times daily. PARoxetine 2017-0 Yes 40mg QD Take [address] (PAXIL) 40 2-23 by mouth [facility] tablet 10:23: nightly. [address] 2017-0 Yes 600mg Q.[id number] Take [address] ne 2-23 [id number] [facility] (TRILEPTAL) 10:23: 3D mouth 3 Med ical 600 MG 59 (three) Center tablet times daily. PARoxetine 2017-0 Yes 40mg QD Take [address] (PAXIL) 40 2-23 by [facility] tablet 10:23: nightly. [address] 2017-0 Yes 600mg Q.[id number] Take [address] ne 2-23 [id number] [facility] (TRILEPTAL) 10:23: 3D mouth 3 Med ical 600 [facility] 59 (three) Center tablet times daily. PARoxetine 2017-0 Yes 40mg QD Take [address] (PAXIL) 40 2-23 by mouth [facility] tablet 10:23: nightly. [address] OXcarbazepi 2017-0 Yes 600mg Q.[id number] Take [address] ne 2-23 [id number] [facility] by [facility] (TRILEPTAL) 10:23: 3D mouth 3 Med ical 600 MG 59 (three) Center tablet times daily. PARoxetine 2017-0 Yes 40mg QD Take [address] (PAXIL) 40 2-23 by [facility] tablet 10:23: nightly. [address] 2017-0 Yes 600mg Q.[id number] Take [address] ne 2-23 [id number] mg by [facility] (TRILEPTAL) 10:23: 3D mouth 3 Med ical 600 MG 59 (three) Center tablet times daily. OXcarbazepi 2017-0 Yes 600mg Q.[id number] Take [address] ne 2-23 [id number] mg by [facility] (TRILEPTAL) 10:23: 3D mouth 3 Med ical 600 MG 59 (three) Center tablet times daily. PARoxetine 2017-0 Yes 40mg QD Take [address] (PAXIL) 40 2-23 by mouth [facility] tablet 10:23: nightly. [facility] [address] OXcarbazepi 2017-0 Yes 600mg Q.[id number] Take [address] ne 2-23 [id number] mg by [facility] (TRILEPTAL) 10:23: 3D mouth 3 Med ical 600 MG 59 (three) Center tablet times daily. PARoxetine 2017-0 Yes 40mg QD Take [address] (PAXIL) 40 2-23 by mouth [facility] tablet 10:23: nightly. [facility] [address] OXcarbazepi 2017-0 Yes 600mg Q.[id number] Take [address] ne 2-23 [id number] mg by [facility] (TRILEPTAL) 10:23: 3D mouth 3 Med ical 600 MG 59 (three) Center tablet times daily. PARoxetine 2017-0 Yes 40mg QD Take [address] (PAXIL) 40 2-23 by mouth [facility] tablet 10:23: nightly. [address] PARoxetine 2017-0 Yes 40mg QD Take [address] (PAXIL) 40 2-23 by mouth [facility] tablet 10:23: nightly. [address] OXcarbazepi 2017-0 Yes 600mg Q.[id number] Take [address] ne 2-23 [id number] mg by [facility] (TRILEPTAL) 10:23: 3D mouth 3 Med ical 600 MG 59 (three) Center tablet times daily. PARoxetine 2017-0 Yes 40mg QD Take [address] (PAXIL) 40 2-23 by mouth [facility] tablet 10:23: nightly. [facility] [address] OXcarbazepi 2017-0 Yes 600mg Q.[id number] Take [address] ne 2-23 [id number] mg by [facility] (TRILEPTAL) 10:23: 3D mouth 3 Med ical 600 MG 59 (three) Center tablet times daily. PARoxetine 2017-0 Yes 40mg QD Take [address] (PAXIL) 40 2-23 by mouth [facility] tablet 10:23: nightly. [facility] [address] OXcarbazepi 2017-0 Yes 600mg Q.[id number] Take [address] ne 2-23 [id number] mg by [facility] (TRILEPTAL) 10:23: 3D mouth 3 Med ical 600 MG 59 (three) Center tablet times daily. PARoxetine 2017-0 Yes 40mg QD Take [address] (PAXIL) 40 2-23 by mouth [facility] tablet 10:23: nightly. [facility] [address] OXcarbazepi 2017-0 Yes 600mg Q.[id number] Take [address] ne 2-23 [id number] mg by [facility] (TRILEPTAL) 10:23: 3D mouth 3 Med ical 600 MG 59 (three) Center tablet times daily. PARoxetine 2017-0 Yes 40mg QD Take [address] (PAXIL) 40 2-23 by mouth [facility] tablet 10:23: nightly. [facility] [address] OXcarbazepi 2017-0 Yes 600mg Q.[id number] Take [address] ne 2-23 [id number] mg by [facility] (TRILEPTAL) 10:23: 3D mouth 3 Med ical 600 MG 59 (three) Center tablet times daily. PARoxetine 2017-0 Yes 40mg QD Take [address] (PAXIL) 40 2-23 by mouth [facility] tablet 10:23: nightly. [facility] [address] OXcarbazepi 2017-0 Yes 600mg Q.[id number] Take [address] ne 2-23 [id number] mg by [facility] (TRILEPTAL) 10:23: 3D mouth 3 Med ical 600 MG 59 (three) Center tablet times daily. PARoxetine 2017-0 Yes 40mg QD Take [address] (PAXIL) 40 2-23 by mouth [facility] tablet 10:23: nightly. [facility] [address] OXcarbazepi 2017-0 Yes 600mg Q.[id number] Take [address] ne 2-23 [id number] mg by [facility] (TRILEPTAL) 10:23: 3D mouth 3 Med ical 600 MG 59 (three) Center tablet times daily. PARoxetine 2017-0 Yes 40mg QD Take [address] (PAXIL) 40 2-23 by mouth [facility] tablet 10:23: nightly. [address] OXcarbazepi 2017-0 Yes 600mg Q.[id number] Take [address] ne 2-23 [id number] mg by [facility] (TRILEPTAL) 10:23: 3D mouth 3 Med ical 600 MG 59 (three) Center tablet times daily. OXcarbazepi 2017-0 Yes 600mg Q.[id number] Take [address] ne 2-23 [id number] mg by [facility] (TRILEPTAL) 10:23: 3D mouth 3 Med ical 600 MG 59 (three) Center tablet times daily. PARoxetine 2017-0 Yes 40mg QD Take [address] (PAXIL) 40 2-23 by mouth [facility] tablet 10:23: nightly. [address] OXcarbazepi 2017-0 Yes 600mg Q.[id number] Take [address] ne 2-23 [id number] mg by [facility] (TRILEPTAL) 10:23: 3D mouth 3 Med ical 600 MG 59 (three) Center tablet times daily. PARoxetine 2017-0 Yes 40mg QD Take [address] (PAXIL) 40 2-23 by mouth [facility] tablet 10:23: nightly. [address] OXcarbazepi 2017-0 Yes 600mg Q.[id number] Take [address] ne 2-23 [id number] mg by [facility] (TRILEPTAL) 10:23: 3D mouth 3 Med ical 600 MG 59 (three) Center tablet times daily. PARoxetine 2017-0 Yes 40mg QD Take [address] (PAXIL) 40 2-23 by mouth [facility] tablet 10:23: nightly. [address] PARoxetine 2017-0 Yes 40mg QD Take [address] (PAXIL) 40 2-23 by mouth [facility] tablet 10:23: nightly. [address] OXcarbazepi 2017-0 Yes 600mg Q.[id number] Take [address] ne 2-23 [id number] mg by [facility] (TRILEPTAL) 10:23: 3D mouth 3 Med ical 600 MG 59 (three) Center tablet times daily. PARoxetine 2017-0 Yes 40mg QD Take [address] (PAXIL) 40 2-23 by mouth [facility] tablet 10:23: nightly. [address] OXcarbazepi 2017-0 Yes 600mg Q.[id number] Take [address] ne 2-23 [id number] mg by [facility] (TRILEPTAL) 10:23: 3D mouth 3 Med ical 600 MG 59 (three) Center tablet times daily. PARoxetine 2017-0 Yes 40mg QD Take [address] (PAXIL) 40 2-23 by mouth [facility] tablet 10:23: nightly. [address] 2017-0 Yes 600mg Q.[id number] Take [address] ne 2-23 [id number] mg by [facility] (TRILEPTAL) 10:23: 3D mouth 3 Med ical 600 MG 59 (three) Center tablet times daily. PARoxetine 2017-0 Yes 40mg QD Take [address] (PAXIL) 40 2-23 by [facility] tablet 10:23: nightly. [address] 2017-0 Yes 600mg Q.[id number] Take [address] ne 2-23 [id number] mg by [facility] (TRILEPTAL) 10:23: 3D mouth 3 Med ical 600 MG 59 (three) Center tablet times daily. PARoxetine 2017-0 Yes 40mg QD Take [address] (PAXIL) 40 2-23 by mouth [facility] tablet 10:23: nightly. [address] OXcarbazepi 2017-0 Yes 600mg Q.[id number] Take [address] ne 2-23 [id number] mg by [facility] (TRILEPTAL) 10:23: 3D mouth 3 Med ical 600 MG 59 (three) Center tablet times daily. PARoxetine 2017-0 Yes 40mg QD Take [address] (PAXIL) 40 2-23 by mouth [facility] tablet 10:23: nightly. [address] 2017-0 Yes 600mg Q.[id number] Take [address] ne 2-23 [id number] mg by [facility] (TRILEPTAL) 10:23: 3D mouth 3 Med ical 600 MG 59 (three) Center tablet times daily. PARoxetine 2017-0 Yes 40mg QD Take [address] (PAXIL) 40 2-23 by mouth [facility] tablet 10:23: nightly. [facility] anjelica [address] OXcarbazepi 2017-0 Yes 600mg Q.[id number] Take [address] ne 2-23 [id number] mg by [facility] (TRILEPTAL) 10:23: 3D mouth 3 Med ical 600 MG 59 (three) Center tablet times daily. PARoxetine 2017-0 Yes 40mg QD Take [address] (PAXIL) 40 2-23 by mouth [facility] tablet 10:23: nightly. [facility] anjelica [address] OXcarbazepi 2017-0 Yes 600mg Q.[id number] Take [address] ne 2-23 [id number] mg by [facility] (TRILEPTAL) 10:23: 3D mouth 3 Med ical 600 MG 59 (three) Center tablet times daily. OXcarbazepi 2017-0 Yes 600mg Q.[id number] Take [address] ne 2-23 [id number] mg by [facility] (TRILEPTAL) 10:23: 3D mouth 3 Med ical 600 MG 59 (three) Center tablet times daily. PARoxetine 2017-0 Yes 40mg QD Take [address] (PAXIL) 40 2-23 by mouth [facility] tablet 10:23: nightly. [facility] anjel[facility] [address] OXcarbazepi 2017-0 Yes 600mg Q.[id number] Take [address] ne 2-23 [id number] mg by [facility] (TRILEPTAL) 10:23: 3D mouth 3 Med ical 600 MG 59 (three) Center tablet times daily. PARoxetine 2017-0 Yes 40mg QD Take [address] (PAXIL) 40 2-23 by mouth [facility] tablet 10:23: nightly. [facility] anjelica [address] OXcarbazepi 2017-0 Yes 600mg Q.[id number] Take [address] ne 2-23 [id number] mg by [facility] (TRILEPTAL) 10:23: 3D mouth 3 Med ical 600 MG 59 (three) Center tablet times daily. PARoxetine 2017-0 Yes 40mg QD Take [address] (PAXIL) 40 2-23 by mouth [facility] tablet 10:23: nightly. [address] PARoxetine 2017-0 Yes 40mg QD Take [address] (PAXIL) 40 2-23 by mouth [facility] tablet 10:23: nightly. [address] OXcarbazepi 2017-0 Yes 600mg Q.[id number] Take [address] ne 2-23 [id number] mg by [facility] (TRILEPTAL) 10:23: 3D mouth 3 Med ical 600 MG 59 (three) Center tablet times daily. PARoxetine 2017-0 Yes 40mg QD Take [address] (PAXIL) 40 2-23 by mouth [facility] tablet 10:23: nightly. [address] OXcarbazepi 2017-0 Yes 600mg Q.[id number] Take [address] ne 2-23 [id number] mg by [facility] (TRILEPTAL) 10:23: 3D mouth 3 Med ical 600 MG 59 (three) Center tablet times daily. PARoxetine 2017-0 Yes 40mg QD Take [address] (PAXIL) 40 2-23 by mouth [facility] tablet 10:23: nightly. [address] OXcarbazepi 2017-0 Yes 600mg Q.[id number] Take [address] ne 2-23 [id number] mg by [facility] (TRILEPTAL) 10:23: 3D mouth 3 Med ical 600 MG 59 (three) Center tablet times daily. PARoxetine 2017-0 Yes 40mg QD Take [address] (PAXIL) 40 2-23 by mouth [facility] tablet 10:23: nightly. [address] OXcarbazepi 2017-0 Yes 600mg Q.[id number] Take [address] ne 2-23 [id number] mg by [facility] (TRILEPTAL) 10:23: 3D mouth 3 Med ical 600 MG 59 (three) Center tablet times daily. PARoxetine 2017-0 Yes 40mg QD Take [address] (PAXIL) 40 2-23 by mouth [facility] tablet 10:23: nightly. [address] OXcarbazepi 2017-0 Yes 600mg Q.[id number] Take [address] ne 2-23 [id number] mg by [facility] (TRILEPTAL) 10:23: 3D mouth 3 Med ical 600 MG 59 (three) Center tablet times daily. PARoxetine 2017-0 Yes 40mg QD Take [address] (PAXIL) 40 2-23 by mouth [facility] tablet 10:23: nightly. [address] OXcarbazepi 2017-0 Yes 600mg Q.[id number] Take [address] ne 2-23 [id number] mg by [facility] (TRILEPTAL) 10:23: 3D mouth 3 Med ical 600 MG 59 (three) Center tablet times daily. PARoxetine 2017-0 Yes 40mg QD Take [address] (PAXIL) 40 2-23 by mouth [facility] tablet 10:23: nightly. [address] OXcarbazepi 2017-0 Yes 600mg Q.[id number] Take [address] ne 2-23 [id number] mg by [facility] (TRILEPTAL) 10:23: 3D mouth 3 Med ical 600 MG 59 (three) Center tablet times daily. PARoxetine 2017-0 Yes 40mg QD Take [address] (PAXIL) 40 2-23 by mouth [facility] tablet 10:23: nightly. [address] OXcarbazepi 2017-0 Yes 600mg Q.[id number] Take [address] ne 2-23 [id number] mg by [facility] (TRILEPTAL) 10:23: 3D mouth 3 Med ical 600 MG 59 (three) Center tablet times daily. OXcarbazepi 2017-0 Yes 600mg Q.[id number] Take [address] ne 2-23 [id number] mg by [facility] (TRILEPTAL) 10:23: 3D mouth 3 Med ical 600 MG 59 (three) Center tablet times daily. PARoxetine 2017-0 Yes 40mg QD Take [address] (PAXIL) 40 2-23 by mouth [facility] tablet 10:23: nightly. [address] OXcarbazepi 2017-0 Yes 600mg Q.[id number] Take [address] ne 2-23 [id number] mg by [facility] (TRILEPTAL) 10:23: 3D mouth 3 Med ical 600 MG 59 (three) Center tablet times daily. PARoxetine 2017-0 Yes 40mg QD Take [address] (PAXIL) 40 2-23 by mouth [facility] tablet 10:23: nightly. [address] OXcarbazepi 2017-0 Yes 600mg Q.[id number] Take [address] ne 2-23 [id number] mg by [facility] (TRILEPTAL) 10:23: 3D mouth 3 Med ical 600 MG 59 (three) Center tablet times daily. PARoxetine 2017-0 Yes 40mg QD Take [address] (PAXIL) 40 2-23 by mouth [facility] tablet 10:23: nightly. [address] 2017-0 Yes 600mg Q.[id number] Take [address] ne 2-23 [id number] mg by [facility] (TRILEPTAL) 10:23: 3D mouth 3 Med ical 600 MG 59 (three) Center tablet times daily. PARoxetine 2017-0 Yes 40mg QD Take [address] (PAXIL) 40 2-23 by mouth [facility] tablet 10:23: nightly. [address] PARoxetine 2017-0 Yes 40mg QD Take [address] (PAXIL) 40 2-23 by mouth [facility] tablet 10:23: nightly. [address] OXcarbazepi 2017-0 Yes 600mg Q.[id number] Take [address] ne 2-23 [id number] mg by [facility] (TRILEPTAL) 10:23: 3D mouth 3 Med ical 600 MG 59 (three) Center tablet times daily. PARoxetine 2017-0 Yes 40mg QD Take [address] (PAXIL) 40 2-23 by mouth [facility] tablet 10:23: nightly. [address] OXcarbazepi 2017-0 Yes 600mg Q.[id number] Take [address] ne 2-23 [id number] mg by [facility] (TRILEPTAL) 10:23: 3D mouth 3 Med ical 600 MG 59 (three) Center tablet times daily. PARoxetine 2017-0 Yes 40mg QD Take [address] (PAXIL) 40 2-23 by mouth [facility] tablet 10:23: nightly. [address] 2017-0 Yes 600mg Q.[id number] Take [address] ne 2-23 [id number] mg by [facility] (TRILEPTAL) 10:23: 3D mouth 3 Med ical 600 MG 59 (three) Center tablet times daily. PARoxetine 2017-0 Yes 40mg QD Take [address] (PAXIL) 40 2-23 by mouth [facility] tablet 10:23: nightly. [address] 2017-0 Yes 600mg Q.[id number] Take [address] ne 2-23 [id number] mg by [facility] (TRILEPTAL) 10:23: 3D mouth 3 Med ical 600 MG 59 (three) Center tablet times daily. PARoxetine 2017-0 Yes 40mg QD Take [address] (PAXIL) 40 2-23 by [facility] tablet 10:23: nightly. [address] 2017-0 Yes 600mg Q.[id number] Take [address] ne 2-23 [id number] mg by [facility] (TRILEPTAL) 10:23: 3D mouth 3 Med ical 600 MG 59 (three) Center tablet times daily. PARoxetine 2017-0 Yes 40mg QD Take [address] (PAXIL) 40 2-23 by mouth [facility] tablet 10:23: nightly. [address] 2017-0 Yes 600mg Q.[id number] Take [address] ne 2-23 [id number] mg by [facility] (TRILEPTAL) 10:23: 3D mouth 3 Med ical 600 MG 59 (three) Center tablet times daily. PARoxetine 2017-0 Yes 40mg QD Take [address] (PAXIL) 40 2-23 by mouth [facility] tablet 10:23: nightly. [address] OXcarbazepi 2017-0 Yes 600mg Q.[id number] Take [address] ne 2-23 [id number] mg by [facility] (TRILEPTAL) 10:23: 3D mouth 3 Med ical 600 MG 59 (three) Center tablet times daily. PARoxetine 2017-0 Yes 40mg QD Take [address] (PAXIL) 40 2-23 by mouth [facility] tablet 10:23: nightly. [address] OXcarbazepi 2017-0 Yes 600mg Q.[id number] Take [address] ne 2-23 [id number] mg by [facility] (TRILEPTAL) 10:23: 3D mouth 3 Med ical 600 MG 59 (three) Center tablet times daily. OXcarbazepi 2017-0 Yes 600mg Q.[id number] Take [address] ne 2-23 [id number] mg by [facility] (TRILEPTAL) 10:23: 3D mouth 3 Med ical 600 MG 59 (three) Center tablet times daily. PARoxetine 2017-0 Yes 40mg QD Take [address] (PAXIL) 40 2-23 by mouth [facility] tablet 10:23: nightly. [address] OXcarbazepi 2017-0 Yes 600mg Q.[id number] Take [address] ne 2-23 [id number] mg by [facility] (TRILEPTAL) 10:23: 3D mouth 3 Med ical 600 MG 59 (three) Center tablet times daily. PARoxetine 2017-0 Yes 40mg QD Take [address] (PAXIL) 40 2-23 by mouth [facility] tablet 10:23: nightly. [address] OXcarbazepi 2017-0 Yes 600mg Q.[id number] Take [address] ne 2-23 [id number] mg by [facility] (TRILEPTAL) 10:23: 3D mouth 3 Med ical 600 MG 59 (three) Center tablet times daily. PARoxetine 2017-0 Yes 40mg QD Take [address] (PAXIL) 40 2-23 by mouth [facility] tablet 10:23: nightly. [address] PARoxetine 2017-0 Yes 40mg QD Take [address] (PAXIL) 40 2-23 by mouth [facility] tablet 10:23: nightly. [address] OXcarbazepi 2017-0 Yes 600mg Q.[id number] Take [address] ne 2-23 [id number] mg by [facility] (TRILEPTAL) 10:23: 3D mouth 3 Med ical 600 MG 59 (three) Center tablet times daily. PARoxetine 2017-0 Yes 40mg QD Take [address] (PAXIL) 40 2-23 by mouth [facility] tablet 10:23: nightly. [facility] OXcarbazepi 2017-0 Yes 600mg Q.[id number] Take [address] ne 2-23 [id number] [facility] by [facility] (TRILEPTAL) 10:23: 3D mouth [...] Goal Plan of Care Note [code = 75528-4] Goal Plan of Care Note [code = 25287-9] Goal Plan of Care Note [code = 35476-6] Goal Plan of Care Note [code = 32473-9] Goal Plan of Care Note [code = 87772-4] Goal Plan of Care Note [code = 84777-7] Goal Plan of Care Note [code = 35251-3] Goal Plan of Care Note [code = 08350-2] Goal Plan of Care Note [code = 98058-0] Goal Plan of Care Note [code = 89647-5] Goal Plan of Care Note [code = 09672-9] Goal Plan of Care Note [code = 99270-0] Goal Plan of Care Note [code = 06850-7] Goal Plan of Care Note [code = 90362-8] Goal Plan of Care Note [code = 12807-5] Goal Plan of Care Note [code = 97775-8] Goal Plan of Care Note [code = 28525-8] Goal Plan of Care Note [code = 50491-4] Goal Plan of Care Note [code = 77070-4] Goal Plan of Care Note [code = 61799-9] Goal Plan of Care Note [code = 99422-0] Goal Plan of Care Note [code = 57575-8] Goal Plan of Care Note [code = 60438-9] Goal Plan of Care Note [code = 37719-0] Goal Plan of Care Note [code = 03996-9] Goal Plan of Care Note [code = 58429-7] Goal Plan of Care Note [code = 51950-9] Goal Plan of Care Note [code = 86806-7] Goal Plan of Care Note [code = 20538-8] Goal Plan of Care Note [code = 72437-8] Goal Plan of Care Note [code = 94972-1] Goal Plan of Care Note [code = 63395-9] Goal Plan of Care Note [code = 38275-9] Goal Plan of Care Note [code = 27132-6] Goal Plan of Care Note [code = 02824-1] Goal Plan of Care Note [code = 16238-9] Goal Plan of Care Note [code = 52202-0] Goal Plan of Care Note [code = 40034-3] Goal Plan of Care Note [code = 45383-5] Goal Plan of Care Note [code = 14922-0] Goal Plan of Care Note [code = 19836-0] Goal Plan of Care Note [code = 46000-0] Goal Plan of Care Note [code = 80776-5] Goal Plan of Care Note [code = 31313-5] Goal Plan of Care Note [code = 74945-5] Goal Plan of Care Note [code = 69695-8] Goal Plan of Care Note [code = 04831-2] Goal Plan of Care Note [code = 39654-5] Goal Plan of Care Note [code = 75122-4] Goal Plan of Care Note [code = 93042-8] Goal Plan of Care Note [code = 85950-6] Goal Plan of Care Note [code = 99404-5] Goal Plan of Care Note [code = 69748-5] Goal Plan of Care Note [code = 67670-0] Goal Plan of Care Note [code = 87917-8] Goal Plan of Care Note [code = 96845-6] Goal Plan of Care Note [code = 31507-5] Goal Plan of Care Note [code = 07256-5] Goal Plan of Care Note [code = 88550-3] Goal Plan of Care Note [code = 45194-1] Goal Plan of Care Note [code = 46585-1] Goal Plan of Care Note [code = 57098-8] Goal Plan of Care Note [code = 60989-2] Goal Plan of Care Note [code = 57637-2] Goal Plan of Care Note [code = 33973-4] Goal Plan of Care Note [code = 45891-5] Goal Plan of Care Note [code = 14622-5] Goal Plan of Care Note [code = 73887-3] Goal Plan of Care Note [code = 59401-0] Goal Plan of Care Note [code = 59033-6] Goal Plan of Care Note [code = 03447-8] Goal Plan of Care Note [code = 60173-7] Goal Plan of Care Note [code = 39013-4] Goal Plan of Care Note [code = 74352-9] Goal Plan of Care Note [code = 95914-0] Goal Plan of Care Note [code = 74333-4] Goal Plan of Care Note [code = 91511-6] Goal Plan of Care Note [code = 31423-1] Goal Plan of Care Note [code = 52564-9] Goal Plan of Care Note [code = 14667-6] Goal Plan of Care Note [code = 22899-3] Goal Plan of Care Note [code = 49333-2] Goal Plan of Care Note [code = 10558-8] Goal Plan of Care Note [code = 08031-2] Goal Plan of Care Note [code = 10973-4] Goal Plan of Care Note [code = 43488-7] Goal Plan of Care Note [code = 79904-1] Goal Plan of Care Note [code = 61216-9] Goal Plan of Care Note [code = 97461-8] Goal Plan of Care Note [code = 03613-2] Goal Plan of Care Note [code = 52751-5] Goal Plan of Care Note [code = 47104-2] Goal Plan of Care Note [code = 69680-6] Goal Plan of Care Note [code = 05750-8] Goal Plan of Care Note [code = 23478-8] Goal Plan of Care Note [code = 19520-8] Goal Plan of Care Note [code = 48699-2] Goal Plan of Care Note [code = 64383-1] Goal Plan of Care Note [code = 37114-4] Goal Plan of Care Note [code = 65462-5] Goal Plan of Care Note [code = 17726-2] Goal Plan of Care Note [code = 47785-1] Goal Plan of Care Note [code = 81076-4] Goal Plan of Care Note [code = 22631-0] Goal Plan of Care Note [code = 51860-0] Goal Plan of Care Note [code = 83373-9] Goal Plan of Care Note [code = 08776-9] Goal Plan of Care Note [code = 40100-7] Goal Plan of Care Note [code = 72090-2] Goal Plan of Care Note [code = 36727-6] Goal Plan of Care Note [code = 93087-5] Goal Plan of Care Note [code = 07355-5] Goal Plan of Care Note [code = 71955-8] Goal Plan of Care Note [code = 22492-9] Goal Plan of Care Note [code = 58509-7] Goal Plan of Care Note [code = 77897-1] Goal Plan of Care Note [code = 47417-0] Goal Plan of Care Note [code = 09863-8] Goal Plan of Care Note [code = 49009-8] Goal Plan of Care Note [code = 73488-5] Goal Plan of Care Note [code = 11075-6] Goal Plan of Care Note [code = 30191-3] Goal Plan of Care Note [code = 75366-0] Goal Plan of Care Note [code = 22283-7] Goal Plan of Care Note [code = 19420-9] Goal Plan of Care Note [code = 22044-1] Goal Plan of Care Note [code = 46644-4] Goal Plan of Care Note [code = 74705-9] Goal Plan of Care Note [code = 83082-1] Goal Plan of Care Note [code = 82961-2] Goal Plan of Care Note [code = 62994-2] Goal Plan of Care Note [code = 41810-7] Goal Plan of Care Note [code = 33734-5] Goal Plan of Care Note [code = 99893-1] Goal Plan of Care Note [code = 32457-3] Goal Plan of Care Note [code = 29208-5] Goal Plan of Care Note [code = 49886-5] Goal Plan of Care Note [code = 11624-1] Goal Plan of Care Note [code = 85980-2] Goal Plan of Care Note [code = 49961-3] Goal Plan of Care Note [code = 41277-1] Goal Plan of Care Note [code = 02192-4] Goal Plan of Care Note [code = 26460-1] Goal Plan of Care Note [code = 21714-8] Goal Plan of Care Note [code = 00315-6] Goal Plan of Care Note [code = 63781-9] Goal Plan of Care Note [code = 15533-4] Goal Plan of Care Note [code = 77152-6] Goal Plan of Care Note [code = 29952-6] Goal Plan of Care Note [code = 38429-9] Goal Plan of Care Note [code = 34464-6] Goal Plan of Care Note [code = 05962-7] Goal Plan of Care Note [code = 62177-3] Goal Plan of Care Note [code = 21859-4] Goal Plan of Care Note [code = 65884-0] Goal Plan of Care Note [code = 60803-6] Goal Plan of Care Note [code = 22519-4] Goal Plan of Care Note [code = 22261-4] Goal Plan of Care Note [code = 70920-5] Goal Plan of Care Note [code = 28988-5] Goal Plan of Care Note [code = 13239-9] Goal Plan of Care Note [code = 49274-2] Goal Plan of Care Note [code = 92841-9] Goal Plan of Care Note [code = 16738-0] Goal Plan of Care Note [code = 86205-9] Goal Plan of Care Note [code = 50771-1] Goal Plan of Care Note [code = 57855-2] Goal Plan of Care Note [code = 53828-0] Goal Plan of Care Note [code = 23864-1] Goal Plan of Care Note [code = 51743-5] Goal Plan of Care Note [code = 71851-1] Goal Plan of Care Note [code = 46786-1] Goal Plan of Care Note [code = 06517-6] Goal Plan of Care Note [code = 69081-1] Goal Plan of Care Note [code = 17385-3] Goal Plan of Care Note [code = 20423-8] Goal Plan of Care Note [code = 65272-0] Goal Plan of Care Note [code = 25681-1] Goal Plan of Care Note [code = 39419-7] Goal Plan of Care Note [code = 08319-4] Goal Plan of Care Note [code = 59294-7] Goal Plan of Care Note [code = 12063-9] Goal Plan of Care Note [code = 78461-5] Goal Plan of Care Note [code = 08755-7] Goal Plan of Care Note [code = 64039-7] Goal Plan of Care Note [code = 99750-5] Goal Plan of Care Note [code = 93525-9] Goal Plan of Care Note [code = 23716-1] Goal Plan of Care Note [code = 18060-7] Goal Plan of Care Note [code = 73385-7] Goal Plan of Care Note [code = 00746-5] Goal Plan of Care Note [code = 47890-5] Goal Plan of Care Note [code = 91781-6] Goal Plan of Care Note [code = 07169-0] Goal Plan of Care Note [code = 48727-0] Goal Plan of Care Note [code = 15963-8] Goal Plan of Care Note [code = 09908-5] Goal Plan of Care Note [code = 38521-8] Goal Plan of Care Note [code = 98164-3] Goal Plan of Care Note [code = 50409-7] Goal Plan of Care Note [code = 20820-1] Goal Plan of Care Note [code = 42259-5] Goal Plan of Care Note [code = 89532-4] Goal Plan of Care Note [code = 88512-6] Goal Plan of Care Note [code = 53003-2] Goal Plan of Care Note [code = 62520-6] Goal Plan of Care Note [code = 88908-8] Goal Plan of Care Note [code = 98025-3] Encounters Start End Encounter Admission Attending Care Care Encounter Source Date/Time Date/Time Type Type Clinicians Facility Department ID 2021-06-01 [id number] Skylar 01:36:29 [id number] [facility] 2022-11-25 2022-11-25 Outpatient SFA SFA [id number] Luis Alfredo Cristian 14:11:37 14:11:37 0919 Saray [place] 2022-05-24 2022-05-24 Outpatient SFA SFA [id number] 023 Cristian 10:36:59 10:36:59 0318 F Jerman 2022-02-11 2022-02-11 Outpatient SFA SFA [id number] 022 Cristian 09:04:48 09:04:48 1206 F Jerman 2022-02-10 2022-02-10 Outpatient SFA SFA [id number] 022 Cristian 09:29:34 09:29:34 1205 F Jerman 2022-02-10 2022-02-10 Outpatient 5g7i06n1- [id number] 0b 9s15t1-5 00:00:00 00:00:00 Visit 4089-4cab 089-4cab-9 -0nq6-u7t bf5-s9b050 078jreq82 bafa93 2022-01-10 2022-01-10 Outpatient SFA SFA [id number] 022 Cristian 09:16:14 09:16:14 1104 F Jerman 2022-01-10 2022-01-10 Outpatient c4axyka2- [id number] f2 accaa6-a 00:00:00 00:00:00 Visit aca9-4c83 ca9-4c83-a -k6ox-yc2 7eb-bc13f3 2k7e275v2 f032f9 2021-12-19 2021-12-19 Outpatient SFA SFA [id number] 022 Cristian 16:11:31 16:11:31 1013 F Jerman 2021-12-19 2021-12-19 Outpatient [id number] 466cae-a 00:00:00 00:00:00 Visit n326-011i 770-441f-a -adae-62b amelia-62bace ieiud95lm fd81af 2021-09-17 2021-09-17 Outpatient wmk2yphs- [id number] aa j3kkea-6 00:00:00 00:00:00 Visit 935a-4f50 35a-4f50-b -t69n-t8a 77d-c2ba85 j782426x7 1264a6 2020-08-03 2020-08-03 Outpatient MATT VÁSQUEZ [facility] [id number] [facility] 10:00:00 10:00:00 MATT SIMPSON [facility] 2020-07-25 2020-07-25 Orders Doctor ABE [id number] 00:00:00 00:00:00 Only Unassigned, BK 350.1.13.10 [facility] 4.2.7.2.686 [id number] 2019-09-26 2019-09-26 Outpatient R RAGHU, [facility] [id number] [facility] 16:00:00 16:00:00 WALLY [facility] 2018-10-21 2018-10-21 Telephone Gramm, [facility] [id number] 00:00:00 00:00:00 Natacha Myles [place] 350.1.13.10 Ade 4.2.7.2.686 [place] [id number] [facility] [address] Building Results Test Description Test Time Test Comments Results Result Comments Source TSH, THIRD GENERATION 2022-05-26 02:57:49 Test Item Value Reference Range Interpretation Comme nts TSH, THIRD GENERATION (test code = 2821) 6.350 UIU/ML 0.400-4.100 H LIPID [id number] 01:09:34 Test Item Value Reference Range Interpretation [...] MOREINFORMATION , SEE CLIENT ANNOUNCE MENT AT [email or web address] RISK [email or web address] LDL/HDL 2.73 RATIO <3.22 [facility] has important (test code = 2238) pathology staff changes effecti ve 05/07/2022. New pathology staff will provide uninter rupted, excellent patie nt care and clinical consultation. S ee URL: [email or web address] UNLES S OTHERWISE INDIC ATED, ALL TESTING PER FORMED AT [facility] [employer] [facility], [place]. [address] [place] [address] ISIDRA CARTER DIRECTOR: CAM GUTHRIE M.D. C CONNOR NUMBER [id number] CAP ACCREDITATION N O. [id number] HEMOGLOBIN [id number] 03:17:24 Test Item Value Reference Range Interpretation Comments HEMOGLOBIN A1c (test 6.4 % 4.2-5.6 H AMERIC AN DIABETES code = 31390) [facility] FOR HGB A1C: PREDIABETES/INC REASED RISK [...] TESTING OR LABORATORY C ONSULTATION. TSH, THIRD [id number] 05:15:49 Test Item Value Reference Range Interpretation Comments TSH, THIRD GENERATION (test code 2.080 UIU/ML 0.400-4.100 = 2821) HEMOGLOBIN [id number] 03:46:00 Test Item Value Reference Range Interpretation Comments HEMOGLOBIN A1c (test 6.6 % 4.2-5.6 H AMERIC AN DIABETES code = 31484) [facility] FOR HGB A1C: PREDIABETES/INC REASED RISK . [...] INDICATED, ALL TESTING PER FORMED ATCLINICAL PATH [employer], I [place]. [address] [facility] [place] [address] LABORATORY DIRE CTOR: DIANA RUSS M.D. CLIA NUMBER [id number] [facility] [place]. [id number] LIPID [id number] 02:59:52 Test Item Value Reference Range Interpretation [...] MOREINFORMATION , SEE CLIENT ANNOUNCE MENT AT [email or web address] RISK RATIO LDL/HDL 4.02 RATIO <3.22 H (test code = 2238) [id number] 00:00:00 Test Item Value Reference Range Interpretation Comments TSH, THIRD GENERATION (test code 2.080 UIU/ML = 2821) [id number] 00:00:00 Test Item Value Reference Range Interpretation Comments TSH, THIRD GENERATION (test code 2.080 UIU/ML = 2821) [id number] 00:00:00 Test Item Value Reference Range Interpretation Comments TSH, THIRD GENERATION (test code 2.080 UIU/ML = 2821) LIPID [id number] 00:00:00 Test Item Value Reference Range Interpretation Comments CHOLESTEROL (test code = 2210) 292 MG/DL TRIGLYCERIDES (test code = 2232) 184 MG/DL HDL CHOLESTEROL (test code = 2220) 51 MG/DL CALC LDL CHOL (test code = 2237) 205 MG/DL RISK RATIO LDL/HDL (test code = 4.02 RATIO 2238) LIPID [id number] 00:00:00 Test Item Value Reference Range Interpretation Comments CHOLESTEROL (test code = 2210) 292 MG/DL TRIGLYCERIDES (test code = 2232) 184 MG/DL HDL CHOLESTEROL (test code = 2220) 51 MG/DL CALC LDL CHOL (test code = 2237) 205 MG/DL RISK RATIO LDL/HDL (test code = 4.02 RATIO 2238) HEMOGLOBIN [id number] 00:00:00 Test Item Value Reference Range Interpretation Comments HEMOGLOBIN A1c (test code = 92941) 6.6 % HEMOGLOBIN [id number] 00:00:00 Test Item Value Reference Range Interpretation Comments HEMOGLOBIN A1c (test code = 19437) 6.6 % HEMOGLOBIN [id number] 00:00:00 Test Item Value Reference Range Interpretation Comments HEMOGLOBIN A1c (test code = 36290) 6.6 % [id number] 00:00:00 Test Item Value Reference Range Interpretation Comments TSH, THIRD GENERATION (test code 2.080 UIU/ML = 2821) [id number] 00:00:00 Test Item Value Reference Range Interpretation Comments TSH, THIRD GENERATION (test code 2.080 UIU/ML = 2821) [id number] 00:00:00 Test Item Value Reference Range Interpretation Comments TSH, THIRD GENERATION (test code 2.080 UIU/ML = 2821) LIPID [id number] 00:00:00 Test Item Value Reference Range Interpretation Comments CHOLESTEROL (test code = 2210) 292 MG/DL TRIGLYCERIDES (test code = 2232) 184 MG/DL HDL CHOLESTEROL (test code = 2220) 51 MG/DL CALC LDL CHOL (test code = 2237) 205 MG/DL RISK RATIO LDL/HDL (test code = 4.02 RATIO 2238) LIPID [id number] 00:00:00 Test Item Value Reference Range Interpretation Comments CHOLESTEROL (test code = 2210) 292 MG/DL TRIGLYCERIDES (test code = 2232) 184 MG/DL HDL CHOLESTEROL (test code = 2220) 51 MG/DL CALC LDL CHOL (test code = 2237) 205 MG/DL RISK RATIO LDL/HDL (test code = 4.02 RATIO 2238) HEMOGLOBIN [id number] 00:00:00 Test Item Value Reference Range Interpretation Comments HEMOGLOBIN A1c (test code = 90957) 6.6 % HEMOGLOBIN [id number] 00:00:00 Test Item Value Reference Range Interpretation Comments HEMOGLOBIN A1c (test code = 10967) 6.6 % HEMOGLOBIN [id number] 00:00:00 Test Item Value Reference Range Interpretation Comments HEMOGLOBIN A1c (test code = 89274) 6.6 % [id number] 00:00:00 Test Item Value Reference Range Interpretation Comments TSH, THIRD GENERATION (test code 2.080 UIU/ML = 2821) [id number] 00:00:00 Test Item Value Reference Range Interpretation Comments TSH, THIRD GENERATION (test code 2.080 UIU/ML = 2821) LIPID [id number] 00:00:00 Test Item Value Reference Range Interpretation Comments CHOLESTEROL (test code = 2210) 292 MG/DL TRIGLYCERIDES (test code = 2232) 184 MG/DL HDL CHOLESTEROL (test code = 2220) 51 MG/DL CALC LDL CHOL (test code = 2237) 205 MG/DL RISK RATIO LDL/HDL (test code = 4.02 RATIO 2238) HEMOGLOBIN [id number] 00:00:00 Test Item Value Reference Range Interpretation Comments HEMOGLOBIN A1c (test code = 37206) 6.6 % HEMOGLOBIN [id number] 00:00:00 Test Item Value Reference Range Interpretation Comments HEMOGLOBIN A1c (test code = 26967) 6.6 % [id number] 00:00:00 Test Item Value Reference Range Interpretation Comments TSH, THIRD GENERATION (test code 2.080 UIU/ML = 2821) [id number] 00:00:00 Test Item Value Reference Range Interpretation Comments TSH, THIRD GENERATION (test code 2.080 UIU/ML = 2821) [id number] 00:00:00 Test Item Value Reference Range Interpretation Comments TSH, THIRD GENERATION (test code 2.080 UIU/ML = 2821) LIPID [id number] 00:00:00 Test Item Value Reference Range Interpretation Comments CHOLESTEROL (test code = 2210) 292 MG/DL TRIGLYCERIDES (test code = 2232) 184 MG/DL HDL CHOLESTEROL (test code = 2220) 51 MG/DL CALC LDL CHOL (test code = 2237) 205 MG/DL RISK RATIO LDL/HDL (test code = 4.02 RATIO 2238) LIPID [id number] 00:00:00 Test Item Value Reference Range Interpretation Comments CHOLESTEROL (test code = 2210) 292 MG/DL TRIGLYCERIDES (test code = 2232) 184 MG/DL HDL CHOLESTEROL (test code = 2220) 51 MG/DL CALC LDL CHOL (test code = 2237) 205 MG/DL RISK RATIO LDL/HDL (test code = 4.02 RATIO 2238) HEMOGLOBIN [id number] 00:00:00 Test Item Value Reference Range Interpretation Comments HEMOGLOBIN A1c (test code = 78315) 6.6 % HEMOGLOBIN [id number] 00:00:00 Test Item Value Reference Range Interpretation Comments HEMOGLOBIN A1c (test code = 69006) 6.6 % HEMOGLOBIN [id number] 00:00:00 Test Item Value Reference Range Interpretation Comments HEMOGLOBIN A1c (test code = 91793) 6.6 % COMPREHENSIVE METABOLIC [id number] 00:00:00 Test Item Value Reference Range Interpretation Comments GLUCOSE (test code = 2217) 131 MG/DL BUN (test code = 2208) 13 MG/DL CREATININE (test code = 2214) 0.65 MG/DL eGFR AMER. (test code 113 ML/MIN/1.73 = 47872) eGFR NON- AMER. (test 97 ML/MIN/1.73 code = 42368) CALC BUN/CREAT (test code = 20 RATIO [...] (test code = 2219) 23 U/L HEMOGLOBIN [id number] 00:00:00 Test Item Value Reference Range Interpretation Comments HEMOGLOBIN A1c (test code = 54899) 6.8 % HEMOGLOBIN [id number] 00:00:00 Test Item Value Reference Range Interpretation Comments HEMOGLOBIN A1c (test code = 29053) 6.8 % HEMOGLOBIN [id number] 00:00:00 Test Item Value Reference Range Interpretation Comments HEMOGLOBIN A1c (test code = 36506) 6.8 % LIPID [id number] 00:00:00 Test Item Value Reference Range Interpretation Comments CHOLESTEROL (test code = 2210) 303 MG/DL TRIGLYCERIDES (test code = 2232) 191 MG/DL HDL CHOLESTEROL (test code = 2220) 61 MG/DL CALC LDL CHOL (test code = 2237) 205 MG/DL RISK RATIO LDL/HDL (test code = 3.36 RATIO 2238) LIPID [id number] 00:00:00 Test Item Value Reference Range Interpretation Comments CHOLESTEROL (test code = 2210) 303 MG/DL TRIGLYCERIDES (test code = 2232) 191 MG/DL HDL CHOLESTEROL (test code = 2220) 61 MG/DL CALC LDL CHOL (test code = 2237) 205 MG/DL RISK RATIO LDL/HDL (test code = 3.36 RATIO 2238) [id number] 00:00:00 Test Item Value Reference Range Interpretation Comments TSH, THIRD GENERATION (test code 0.769 UIU/ML = 2821) [id number] 00:00:00 Test Item Value Reference Range Interpretation Comments TSH, THIRD GENERATION (test code 0.769 UIU/ML = 2821) [id number] 00:00:00 Test Item Value Reference Range Interpretation Comments TSH, THIRD GENERATION (test code 0.769 UIU/ML = 2821) COMPREHENSIVE METABOLIC [id number] 00:00:00 Test Item Value Reference Range Interpretation Comments GLUCOSE (test code = 2217) 131 MG/DL BUN (test code = 2208) 13 MG/DL CREATININE (test code = 2214) 0.65 MG/DL eGFR AMER. (test code 113 ML/MIN/1.73 = 60631) eGFR NON- AMER. (test 97 ML/MIN/1.73 code = 11955) CALC BUN/CREAT (test code = 20 RATIO [...] code = 2219) 23 U/L COMPREHENSIVE METABOLIC [id number] 00:00:00 Test Item Value Reference Range Interpretation Comments GLUCOSE (test code = 2217) 131 MG/DL BUN (test code = 2208) 13 MG/DL CREATININE (test code = 2214) 0.65 MG/DL eGFR AMER. (test code 113 ML/MIN/1.73 = 63459) eGFR NON- AMER. (test 97 ML/MIN/1.73 code = 72908) CALC BUN/CREAT (test code = 20 RATIO [...] (test code = 2219) 23 U/L HEMOGLOBIN [id number] 00:00:00 Test Item Value Reference Range Interpretation Comments HEMOGLOBIN A1c (test code = 79814) 6.8 % HEMOGLOBIN [id number] 00:00:00 Test Item Value Reference Range Interpretation Comments HEMOGLOBIN A1c (test code = 24291) 6.8 % HEMOGLOBIN [id number] 00:00:00 Test Item Value Reference Range Interpretation Comments HEMOGLOBIN A1c (test code = 84492) 6.8 % LIPID [id number] 00:00:00 Test Item Value Reference Range Interpretation Comments CHOLESTEROL (test code = 2210) 303 MG/DL TRIGLYCERIDES (test code = 2232) 191 MG/DL HDL CHOLESTEROL (test code = 2220) 61 MG/DL CALC LDL CHOL (test code = 2237) 205 MG/DL RISK RATIO LDL/HDL (test code = 3.36 RATIO 2238) LIPID [id number] 00:00:00 Test Item Value Reference Range Interpretation Comments CHOLESTEROL (test code = 2210) 303 MG/DL TRIGLYCERIDES (test code = 2232) 191 MG/DL HDL CHOLESTEROL (test code = 2220) 61 MG/DL CALC LDL CHOL (test code = 2237) 205 MG/DL RISK RATIO LDL/HDL (test code = 3.36 RATIO 2238) [id number] 00:00:00 Test Item Value Reference Range Interpretation Comments TSH, THIRD GENERATION (test code 0.769 UIU/ML = 2821) [id number] 00:00:00 Test Item Value Reference Range Interpretation Comments TSH, THIRD GENERATION (test code 0.769 UIU/ML = 2821) [id number] 00:00:00 Test Item Value Reference Range Interpretation Comments TSH, THIRD GENERATION (test code 0.769 UIU/ML = 2821) COMPREHENSIVE METABOLIC [id number] 00:00:00 Test Item Value Reference Range Interpretation Comments GLUCOSE (test code = 2217) 131 MG/DL BUN (test code = 2208) 13 MG/DL CREATININE (test code = 2214) 0.65 MG/DL eGFR AMER. (test code 113 ML/MIN/1.73 = 11742) eGFR NON- AMER. (test 97 ML/MIN/1.73 code = 51810) CALC BUN/CREAT (test code = 20 RATIO [...] code = 2219) 23 U/L COMPREHENSIVE METABOLIC [id number] 00:00:00 Test Item Value Reference Range Interpretation Comments GLUCOSE (test code = 2217) 131 MG/DL BUN (test code = 2208) 13 MG/DL CREATININE (test code = 2214) 0.65 MG/DL eGFR AMER. (test code 113 ML/MIN/1.73 = 51984) eGFR NON- AMER. (test 97 ML/MIN/1.73 code = 28901) CALC BUN/CREAT (test code = 20 RATIO [...] (test code = 2219) 23 U/L HEMOGLOBIN [id number] 00:00:00 Test Item Value Reference Range Interpretation Comments HEMOGLOBIN A1c (test code = 10177) 6.8 % HEMOGLOBIN [id number] 00:00:00 Test Item Value Reference Range Interpretation Comments HEMOGLOBIN A1c (test code = 13653) 6.8 % LIPID [id number] 00:00:00 Test Item Value Reference Range Interpretation Comments CHOLESTEROL (test code = 2210) 303 MG/DL TRIGLYCERIDES (test code = 2232) 191 MG/DL HDL CHOLESTEROL (test code = 2220) 61 MG/DL CALC LDL CHOL (test code = 2237) 205 MG/DL RISK RATIO LDL/HDL (test code = 3.36 RATIO 2238) [id number] 00:00:00 Test Item Value Reference Range Interpretation Comments TSH, THIRD GENERATION (test code 0.769 UIU/ML = 2821) [id number] 00:00:00 Test Item Value Reference Range Interpretation Comments TSH, THIRD GENERATION (test code 0.769 UIU/ML = 2821) COMPREHENSIVE METABOLIC [id number] 00:00:00 Test Item Value Reference Range Interpretation Comments GLUCOSE (test code = 2217) 131 MG/DL BUN (test code = 2208) 13 MG/DL CREATININE (test code = 2214) 0.65 MG/DL eGFR AMER. (test code 113 ML/MIN/1.73 = 31506) eGFR NON- AMER. (test 97 ML/MIN/1.73 code = 80152) CALC BUN/CREAT (test code = 20 RATIO [...] (test code = 2219) 23 U/L HEMOGLOBIN [id number] 00:00:00 Test Item Value Reference Range Interpretation Comments HEMOGLOBIN A1c (test code = 92802) 6.8 % HEMOGLOBIN [id number] 00:00:00 Test Item Value Reference Range Interpretation Comments HEMOGLOBIN A1c (test code = 09200) 6.8 % HEMOGLOBIN [id number] 00:00:00 Test Item Value Reference Range Interpretation Comments HEMOGLOBIN A1c (test code = 75833) 6.8 % LIPID [id number] 00:00:00 Test Item Value Reference Range Interpretation Comments CHOLESTEROL (test code = 2210) 303 MG/DL TRIGLYCERIDES (test code = 2232) 191 MG/DL HDL CHOLESTEROL (test code = 2220) 61 MG/DL CALC LDL CHOL (test code = 2237) 205 MG/DL RISK RATIO LDL/HDL (test code = 3.36 RATIO 2238) LIPID [id number] 00:00:00 Test Item Value Reference Range Interpretation Comments CHOLESTEROL (test code = 2210) 303 MG/DL TRIGLYCERIDES (test code = 2232) 191 MG/DL HDL CHOLESTEROL (test code = 2220) 61 MG/DL CALC LDL CHOL (test code = 2237) 205 MG/DL RISK RATIO LDL/HDL (test code = 3.36 RATIO 2238) [id number] 00:00:00 Test Item Value Reference Range Interpretation Comments TSH, THIRD GENERATION (test code 0.769 UIU/ML = 2821) [id number] 00:00:00 Test Item Value Reference Range Interpretation Comments TSH, THIRD GENERATION (test code 0.769 UIU/ML = 2821) [id number] 00:00:00 Test Item Value Reference Range Interpretation Comments TSH, THIRD GENERATION (test code 0.769 UIU/ML = 2821) COMPREHENSIVE METABOLIC [id number] 00:00:00 Test Item Value Reference Range Interpretation Comments GLUCOSE (test code = 2217) 131 MG/DL BUN (test code = 2208) 13 MG/DL CREATININE (test code = 2214) 0.65 MG/DL eGFR AMER. (test code 113 ML/MIN/1.73 = 14488) eGFR NON- AMER. (test 97 ML/MIN/1.73 code = 56522) CALC BUN/CREAT (test code = 20 RATIO [...] THYROX. BIND. CAPAC. (test code 1.1 = 54007) T4 (THYROXINE) (test code = 4.3 UG/DL 2819) CORRECTED T4 (FTI) (test code = 3.9 UG/DL 2820) TSH, THIRD GENERATION (test 18.900 UIU/ML code = 2821) HEMOGLOBIN [id number] 00:00:00 Test Item Value Reference Range Interpretation Comments HEMOGLOBIN A1c (test code = 75407) 6.6 % HEMOGLOBIN [id number] 00:00:00 Test Item Value Reference Range Interpretation Comments HEMOGLOBIN A1c (test code = 32433) 6.6 % HEMOGLOBIN [id number] 00:00:00 Test Item Value Reference Range Interpretation Comments HEMOGLOBIN A1c (test code = 83927) 6.6 % LIPID [id number] 00:00:00 Test Item Value Reference Range Interpretation Comments CHOLESTEROL (test code = 2210) 261 MG/DL TRIGLYCERIDES (test code = 2232) 159 MG/DL HDL CHOLESTEROL (test code = 2220) 82 MG/DL CALC LDL CHOL (test code = 2237) 150 MG/DL RISK RATIO LDL/HDL (test code = 1.83 RATIO 2238) LIPID [id number] 00:00:00 Test Item Value Reference Range Interpretation Comments CHOLESTEROL (test code = 2210) 261 MG/DL TRIGLYCERIDES (test code = 2232) 159 MG/DL HDL CHOLESTEROL (test code = 2220) 82 MG/DL CALC LDL CHOL (test code = 2237) 150 MG/DL RISK RATIO LDL/HDL (test code = 1.83 RATIO 2238) COMPREHENSIVE METABOLIC [id number] 00:00:00 Test Item Value Reference Range Interpretation Comments GLUCOSE (test code = 2217) 144 MG/DL BUN (test code = 2208) 15 MG/DL CREATININE (test code = 2214) 0.85 MG/DL eGFR AMER. (test code 87 ML/MIN/1.73 = 96002) eGFR NON- AMER. (test 75 ML/MIN/1.73 code = 35676) CALC BUN/CREAT (test code = 18 RATIO [...] code = 2219) 50 U/L COMPREHENSIVE METABOLIC [id number] 00:00:00 Test Item Value Reference Range Interpretation Comments GLUCOSE (test code = 2217) 144 MG/DL BUN (test code = 2208) 15 MG/DL CREATININE (test code = 2214) 0.85 MG/DL eGFR AMER. (test code 87 ML/MIN/1.73 = 29155) eGFR NON- AMER. (test 75 ML/MIN/1.73 code = 27452) CALC BUN/CREAT (test code = 18 RATIO [...] THYROX. BIND. CAPAC. (test code 1.1 = 63599) T4 (THYROXINE) (test code = 4.3 UG/DL 2819) CORRECTED T4 (FTI) (test code = 3.9 UG/DL 2820) TSH, THIRD GENERATION (test 18.900 UIU/ML code = 2821) THYROID II PROFILE (T3U, T4, T7, TSH)[id number] 00:00:00 Test Item Value Reference Range Interpretation Comments T-UPTAKE (test code = 2817) 30.2 % THYROX. BIND. CAPAC. (test code 1.1 = 44085) T4 (THYROXINE) (test code = 4.3 UG/DL 2819) CORRECTED T4 (FTI) (test code = 3.9 UG/DL 2820) TSH, THIRD GENERATION (test 18.900 UIU/ML code = 2821) HEMOGLOBIN [id number] 00:00:00 Test Item Value Reference Range Interpretation Comments HEMOGLOBIN A1c (test code = 87881) 6.6 % HEMOGLOBIN [id number] 00:00:00 Test Item Value Reference Range Interpretation Comments HEMOGLOBIN A1c (test code = 42743) 6.6 % HEMOGLOBIN [id number] 00:00:00 Test Item Value Reference Range Interpretation Comments HEMOGLOBIN A1c (test code = 27897) 6.6 % LIPID [id number] 00:00:00 Test Item Value Reference Range Interpretation Comments CHOLESTEROL (test code = 2210) 261 MG/DL TRIGLYCERIDES (test code = 2232) 159 MG/DL HDL CHOLESTEROL (test code = 2220) 82 MG/DL CALC LDL CHOL (test code = 2237) 150 MG/DL RISK RATIO LDL/HDL (test code = 1.83 RATIO 2238) LIPID [id number] 00:00:00 Test Item Value Reference Range Interpretation Comments CHOLESTEROL (test code = 2210) 261 MG/DL TRIGLYCERIDES (test code = 2232) 159 MG/DL HDL CHOLESTEROL (test code = 2220) 82 MG/DL CALC LDL CHOL (test code = 2237) 150 MG/DL RISK RATIO LDL/HDL (test code = 1.83 RATIO 2238) COMPREHENSIVE METABOLIC [id number] 00:00:00 Test Item Value Reference Range Interpretation Comments GLUCOSE (test code = 2217) 144 MG/DL BUN (test code = 2208) 15 MG/DL CREATININE (test code = 2214) 0.85 MG/DL eGFR AMER. (test code 87 ML/MIN/1.73 = 11654) eGFR NON- AMER. (test 75 ML/MIN/1.73 code = 18662) CALC BUN/CREAT (test code = 18 RATIO [...] code = 2219) 50 U/L COMPREHENSIVE METABOLIC [id number] 00:00:00 Test Item Value Reference Range Interpretation Comments GLUCOSE (test code = 2217) 144 MG/DL BUN (test code = 2208) 15 MG/DL CREATININE (test code = 2214) 0.85 MG/DL eGFR AMER. (test code 87 ML/MIN/1.73 = 04248) eGFR NON- AMER. (test 75 ML/MIN/1.73 code = 91561) CALC BUN/CREAT (test code = 18 RATIO [...] THYROX. BIND. CAPAC. (test code 1.1 = 69139) T4 (THYROXINE) (test code = 4.3 UG/DL 2819) CORRECTED T4 (FTI) (test code = 3.9 UG/DL 2820) TSH, THIRD GENERATION (test 18.900 UIU/ML code = 2821) THYROID II PROFILE (T3U, T4, T7, TSH)2020-05-23 00:00:00 Test Item Value Reference Range Interpretation Comments T-UPTAKE (test code = 2816) 30.2 % THYROX. BIND. CAPAC. (test code 1.1 = 51519) T4 (THYROXINE) (test code = 4.3 UG/DL 2819) CORRECTED T4 (FTI) (test code = 3.9 UG/DL 2820) TSH, THIRD GENERATION (test 18.900 UIU/ML code = 2821) HEMOGLOBIN [id number] 00:00:00 Test Item Value Reference Range Interpretation Comments HEMOGLOBIN A1c (test code = 91040) 6.6 % HEMOGLOBIN [id number] 00:00:00 Test Item Value Reference Range Interpretation Comments HEMOGLOBIN A1c (test code = 06561) 6.6 % LIPID [id number] 00:00:00 Test Item Value Reference Range Interpretation Comments CHOLESTEROL (test code = 2210) 261 MG/DL TRIGLYCERIDES (test code = 2232) 159 MG/DL HDL CHOLESTEROL (test code = 2220) 82 MG/DL CALC LDL CHOL (test code = 2237) 150 MG/DL RISK RATIO LDL/HDL (test code = 1.83 RATIO 2238) COMPREHENSIVE METABOLIC [id number] 00:00:00 Test Item Value Reference Range Interpretation Comments GLUCOSE (test code = 2217) 144 MG/DL BUN (test code = 2208) 15 MG/DL CREATININE (test code = 2214) 0.85 MG/DL eGFR AMER. (test code 87 ML/MIN/1.73 = 27862) eGFR NON- AMER. (test 75 ML/MIN/1.73 code = 51010) CALC BUN/CREAT (test code = 18 RATIO [...] THYROX. BIND. CAPAC. (test code 1.1 = 04645) T4 (THYROXINE) (test code = 4.3 UG/DL 2819) CORRECTED T4 (FTI) (test code = 3.9 UG/DL 2820) TSH, THIRD GENERATION (test 18.900 UIU/ML code = 2821) HEMOGLOBIN [id number] 00:00:00 Test Item Value Reference Range Interpretation Comments HEMOGLOBIN A1c (test code = 54979) 6.6 % HEMOGLOBIN [id number] 00:00:00 Test Item Value Reference Range Interpretation Comments HEMOGLOBIN A1c (test code = 65805) 6.6 % HEMOGLOBIN [id number] 00:00:00 Test Item Value Reference Range Interpretation Comments HEMOGLOBIN A1c (test code = 99587) 6.6 % LIPID [id number] 00:00:00 Test Item Value Reference Range Interpretation Comments CHOLESTEROL (test code = 2210) 261 MG/DL TRIGLYCERIDES (test code = 2232) 159 MG/DL HDL CHOLESTEROL (test code = 2220) 82 MG/DL CALC LDL CHOL (test code = 2237) 150 MG/DL RISK RATIO LDL/HDL (test code = 1.83 RATIO 2238) LIPID [id number] 00:00:00 Test Item Value Reference Range Interpretation Comments CHOLESTEROL (test code = 2210) 261 MG/DL TRIGLYCERIDES (test code = 2232) 159 MG/DL HDL CHOLESTEROL (test code = 2220) 82 MG/DL CALC LDL CHOL (test code = 2237) 150 MG/DL RISK RATIO LDL/HDL (test code = 1.83 RATIO 2238) COMPREHENSIVE METABOLIC [id number] 00:00:00 Test Item Value Reference Range Interpretation Comments GLUCOSE (test code = 2217) 144 MG/DL BUN (test code = 2208) 15 MG/DL CREATININE (test code = 2214) 0.85 MG/DL eGFR AMER. (test code 87 ML/MIN/1.73 = 96118) eGFR NON- AMER. (test 75 ML/MIN/1.73 code = 19857) CALC BUN/CREAT (test code = 18 RATIO [...] code = 2219) 50 U/L COMPREHENSIVE METABOLIC [id number] 00:00:00 Test Item Value Reference Range Interpretation Comments GLUCOSE (test code = 2217) 144 MG/DL BUN (test code = 2208) 15 MG/DL CREATININE (test code = 2214) 0.85 MG/DL eGFR AMER. (test code 87 ML/MIN/1.73 = 13876) eGFR NON- AMER. (test 75 ML/MIN/1.73 code = 23061) CALC BUN/CREAT (test code = 18 RATIO [...] THYROX. BIND. CAPAC. (test code 1.1 = 34478) T4 (THYROXINE) (test code = 4.3 UG/DL 2819) CORRECTED T4 (FTI) (test code = 3.9 UG/DL 2820) TSH, THIRD GENERATION (test 18.900 UIU/ML code = 2821) THYROID II PROFILE (T3U, T4, T7, TSH)2019 00:00:00 Test Item Value Reference Range Interpretation Comments T-UPTAKE (test code = 2817) 33.1 % THYROX. BIND. CAPAC. (test code 1.0 = 59923) T4 (THYROXINE) (test code = 4.7 UG/DL 2819) CORRECTED T4 (FTI) (test code = 4.7 UG/DL 2820) TSH, THIRD GENERATION (test code 0.201 UIU/ML = 2821) THYROID II PROFILE (T3U, T4, T7, TSH)2019 00:00:00 Test Item Value Reference Range Interpretation Comments T-UPTAKE (test code = 2817) 33.1 % THYROX. BIND. CAPAC. (test code 1.0 = 88521) T4 (THYROXINE) (test code = 4.7 UG/DL 2819) CORRECTED T4 (FTI) (test code = 4.7 UG/DL 2820) TSH, THIRD GENERATION (test code 0.201 UIU/ML = 2821) HEMOGLOBIN [id number] 00:00:00 Test Item Value Reference Range Interpretation Comments HEMOGLOBIN A1c (test code = 10781) 6.7 % HEMOGLOBIN [id number] 00:00:00 Test Item Value Reference Range Interpretation Comments HEMOGLOBIN A1c (test code = 83309) 6.7 % HEMOGLOBIN [id number] 00:00:00 Test Item Value Reference Range Interpretation Comments HEMOGLOBIN A1c (test code = 35247) 6.7 % LIPID [id number] 00:00:00 Test Item Value Reference Range Interpretation Comments CHOLESTEROL (test code = 2210) 267 MG/DL TRIGLYCERIDES (test code = 2232) 137 MG/DL HDL CHOLESTEROL (test code = 2220) 48 MG/DL CALC LDL CHOL (test code = 2237) 192 MG/DL RISK RATIO LDL/HDL (test code = 4.00 RATIO 2238) LIPID [id number] 00:00:00 Test Item Value Reference Range Interpretation Comments CHOLESTEROL (test code = 2210) 267 MG/DL TRIGLYCERIDES (test code = 2232) 137 MG/DL HDL CHOLESTEROL (test code = 2220) 48 MG/DL CALC LDL CHOL (test code = 2237) 192 MG/DL RISK RATIO LDL/HDL (test code = 4.00 RATIO 2238) COMPREHENSIVE METABOLIC [id number] 00:00:00 Test Item Value Reference Range Interpretation Comments GLUCOSE (test code = 2217) 155 MG/DL BUN (test code = 2208) 14 MG/DL CREATININE (test code = 2214) 0.52 MG/DL eGFR AMER. (test code 122 ML/MIN/1.73 = 55374) eGFR NON- AMER. (test 105 ML/MIN/1.73 code = 05617) CALC BUN/CREAT (test code = 27 RATIO [...] code = 2219) 27 U/L COMPREHENSIVE METABOLIC [id number] 00:00:00 Test Item Value Reference Range Interpretation Comments GLUCOSE (test code = 2217) 155 MG/DL BUN (test code = 2208) 14 MG/DL CREATININE (test code = 2214) 0.52 MG/DL eGFR AMER. (test code 122 ML/MIN/1.73 = 33774) eGFR NON- AMER. (test 105 ML/MIN/1.73 code = 82754) CALC BUN/CREAT (test code = 27 RATIO [...] THYROX. BIND. CAPAC. (test code 1.0 = 68486) T4 (THYROXINE) (test code = 4.7 UG/DL 2819) CORRECTED T4 (FTI) (test code = 4.7 UG/DL 2820) TSH, THIRD GENERATION (test code 0.201 UIU/ML = 2821) THYROID II PROFILE (T3U, T4, T7, TSH)2019 00:00:00 Test Item Value Reference Range Interpretation Comments T-UPTAKE (test code = 2817) 33.1 % THYROX. BIND. CAPAC. (test code 1.0 = 68641) T4 (THYROXINE) (test code = 4.7 UG/DL 2819) CORRECTED T4 (FTI) (test code = 4.7 UG/DL 2820) TSH, THIRD GENERATION (test code 0.201 UIU/ML = 2821) HEMOGLOBIN [id number] 00:00:00 Test Item Value Reference Range Interpretation Comments HEMOGLOBIN A1c (test code = 79452) 6.7 % HEMOGLOBIN [id number] 00:00:00 Test Item Value Reference Range Interpretation Comments HEMOGLOBIN A1c (test code = 19635) 6.7 % HEMOGLOBIN [id number] 00:00:00 Test Item Value Reference Range Interpretation Comments HEMOGLOBIN A1c (test code = 32874) 6.7 % LIPID [id number] 00:00:00 Test Item Value Reference Range Interpretation Comments CHOLESTEROL (test code = 2210) 267 MG/DL TRIGLYCERIDES (test code = 2232) 137 MG/DL HDL CHOLESTEROL (test code = 2220) 48 MG/DL CALC LDL CHOL (test code = 2237) 192 MG/DL RISK RATIO LDL/HDL (test code = 4.00 RATIO 2238) LIPID [id number] 00:00:00 Test Item Value Reference Range Interpretation Comments CHOLESTEROL (test code = 2210) 267 MG/DL TRIGLYCERIDES (test code = 2232) 137 MG/DL HDL CHOLESTEROL (test code = 2220) 48 MG/DL CALC LDL CHOL (test code = 2237) 192 MG/DL RISK RATIO LDL/HDL (test code = 4.00 RATIO 2238) COMPREHENSIVE METABOLIC [id number] 00:00:00 Test Item Value Reference Range Interpretation Comments GLUCOSE (test code = 2217) 155 MG/DL BUN (test code = 2208) 14 MG/DL CREATININE (test code = 2214) 0.52 MG/DL eGFR AMER. (test code 122 ML/MIN/1.73 = 44126) eGFR NON- AMER. (test 105 ML/MIN/1.73 code = 63660) CALC BUN/CREAT (test code = 27 RATIO [...] code = 2219) 27 U/L COMPREHENSIVE METABOLIC [id number] 00:00:00 Test Item Value Reference Range Interpretation Comments GLUCOSE (test code = 2217) 155 MG/DL BUN (test code = 2208) 14 MG/DL CREATININE (test code = 2214) 0.52 MG/DL eGFR AMER. (test code 122 ML/MIN/1.73 = 65533) eGFR NON- AMER. (test 105 ML/MIN/1.73 code = 62836) CALC BUN/CREAT (test code = 27 RATIO [...] THYROX. BIND. CAPAC. (test code 1.0 = 62539) T4 (THYROXINE) (test code = 4.7 UG/DL 2819) CORRECTED T4 (FTI) (test code = 4.7 UG/DL 2820) TSH, THIRD GENERATION (test code 0.201 UIU/ML = 2821) THYROID II PROFILE (T3U, T4, T7, TSH)2019 00:00:00 Test Item Value Reference Range Interpretation Comments T-UPTAKE (test code = 7) 33.1 % THYROX. BIND. CAPAC. (test code 1.0 = 00931) T4 (THYROXINE) (test code = 4.7 UG/DL 2819) CORRECTED T4 (FTI) (test code = 4.7 UG/DL 2820) TSH, THIRD GENERATION (test code 0.201 UIU/ML = 2821) HEMOGLOBIN [id number] 00:00:00 Test Item Value Reference Range Interpretation Comments HEMOGLOBIN A1c (test code = 38827) 6.7 % HEMOGLOBIN [id number] 00:00:00 Test Item Value Reference Range Interpretation Comments HEMOGLOBIN A1c (test code = 59098) 6.7 % LIPID [id number] 00:00:00 Test Item Value Reference Range Interpretation Comments CHOLESTEROL (test code = 2210) 267 MG/DL TRIGLYCERIDES (test code = 2232) 137 MG/DL HDL CHOLESTEROL (test code = 2220) 48 MG/DL CALC LDL CHOL (test code = 2237) 192 MG/DL RISK RATIO LDL/HDL (test code = 4.00 RATIO 2238) COMPREHENSIVE METABOLIC [id number] 00:00:00 Test Item Value Reference Range Interpretation Comments GLUCOSE (test code = 2217) 155 MG/DL BUN (test code = 2208) 14 MG/DL CREATININE (test code = 2214) 0.52 MG/DL eGFR AMER. (test code 122 ML/MIN/1.73 = 24419) eGFR NON- AMER. (test 105 ML/MIN/1.73 code = 83088) CALC BUN/CREAT (test code = 27 RATIO [...] THYROX. BIND. CAPAC. (test code 1.0 = 21918) T4 (THYROXINE) (test code = 4.7 UG/DL 2819) CORRECTED T4 (FTI) (test code = 4.7 UG/DL 2820) TSH, THIRD GENERATION (test code 0.201 UIU/ML = 2821) HEMOGLOBIN [id number] 00:00:00 Test Item Value Reference Range Interpretation Comments HEMOGLOBIN A1c (test code = 34746) 6.7 % HEMOGLOBIN [id number] 00:00:00 Test Item Value Reference Range Interpretation Comments HEMOGLOBIN A1c (test code = 60697) 6.7 % HEMOGLOBIN [id number] 00:00:00 Test Item Value Reference Range Interpretation Comments HEMOGLOBIN A1c (test code = 07035) 6.7 % LIPID [id number] 00:00:00 Test Item Value Reference Range Interpretation Comments CHOLESTEROL (test code = 2210) 267 MG/DL TRIGLYCERIDES (test code = 2232) 137 MG/DL HDL CHOLESTEROL (test code = 2220) 48 MG/DL CALC LDL CHOL (test code = 2237) 192 MG/DL RISK RATIO LDL/HDL (test code = 4.00 RATIO 2238) LIPID [id number] 00:00:00 Test Item Value Reference Range Interpretation Comments CHOLESTEROL (test code = 2210) 267 MG/DL TRIGLYCERIDES (test code = 2232) 137 MG/DL HDL CHOLESTEROL (test code = 2220) 48 MG/DL CALC LDL CHOL (test code = 2237) 192 MG/DL RISK RATIO LDL/HDL (test code = 4.00 RATIO 2238) COMPREHENSIVE METABOLIC [id number] 00:00:00 Test Item Value Reference Range Interpretation Comments GLUCOSE (test code = 2217) 155 MG/DL BUN (test code = 2208) 14 MG/DL CREATININE (test code = 2214) 0.52 MG/DL eGFR AMER. (test code 122 ML/MIN/1.73 = 13658) eGFR NON- AMER. (test 105 ML/MIN/1.73 code = 70387) CALC BUN/CREAT (test code = 27 RATIO [...] code = 2219) 27 U/L COMPREHENSIVE METABOLIC [id number] 00:00:00 Test Item Value Reference Range Interpretation Comments GLUCOSE (test code = 2217) 155 MG/DL BUN (test code = 2208) 14 MG/DL CREATININE (test code = 2214) 0.52 MG/DL eGFR AMER. (test code 122 ML/MIN/1.73 = 29544) eGFR NON- AMER. (test 105 ML/MIN/1.73 code = 49149) CALC BUN/CREAT (test code = 27 RATIO [...] ALT (test code = 2219) 27 U/L SARS-CoV-2 (COVID-19) by RT-PCR (HIGH RISK)2019-09-18 00:00:00 Test Item Value Reference Range Interpretation Comments SARS-CoV-2 INTERPRETATION (test NEGATIVE code = 97312) SOURCE (test code = 44106) NOT SPECIFIED SARS-CoV-2 (COVID-19) by RT-PCR (HIGH RISK)2019-09-18 00:00:00 Test Item Value Reference Range Interpretation Comments SARS-CoV-2 INTERPRETATION (test NEGATIVE code = 41551) SOURCE (test code = 35264) NOT SPECIFIED SARS-CoV-2 (COVID-19) by RT-PCR (HIGH RISK)2019-09-18 00:00:00 Test Item Value Reference Range Interpretation Comments SARS-CoV-2 INTERPRETATION (test NEGATIVE code = 03202) SOURCE (test code = 60494) NOT SPECIFIED SARS-CoV-2 (COVID-19) by RT-PCR (HIGH RISK)2019-09-18 00:00:00 Test Item Value Reference Range Interpretation Comments SARS-CoV-2 INTERPRETATION (test NEGATIVE code = 97565) SOURCE (test code = 81233) NOT SPECIFIED SARS-CoV-2 (COVID-19) by RT-PCR (HIGH RISK)2019-09-18 00:00:00 Test Item Value Reference Range Interpretation Comments SARS-CoV-2 INTERPRETATION (test NEGATIVE code = 51117) SOURCE (test code = 51057) NOT SPECIFIED SARS-CoV-2 (COVID-19) by RT-PCR (HIGH RISK)2019-09-18 00:00:00 Test Item Value Reference Range Interpretation Comments SARS-CoV-2 INTERPRETATION (test NEGATIVE code = 91665) SOURCE (test code = 63016) NOT SPECIFIED SARS-CoV-2 (COVID-19) by RT-PCR (HIGH RISK)2019-09-18 00:00:00 Test Item Value Reference Range Interpretation Comments SARS-CoV-2 INTERPRETATION (test NEGATIVE code = 12024) SOURCE (test code = 05575) NOT SPECIFIED [id number] 00:00:00 Test Item Value Reference Range Interpretation Comments TSH, THIRD GENERATION (test code 2.490 UIU/ML = 2821) [id number] 00:00:00 Test Item Value Reference Range Interpretation Comments TSH, THIRD GENERATION (test code 2.490 UIU/ML = 2821) [id number] 00:00:00 Test Item Value Reference Range Interpretation Comments TSH, THIRD GENERATION (test code 2.490 UIU/ML = 2821) HEMOGLOBIN [id number] 00:00:00 Test Item Value Reference Range Interpretation Comments HEMOGLOBIN A1c (test code = 67997) 6.4 % HEMOGLOBIN [id number] 00:00:00 Test Item Value Reference Range Interpretation Comments HEMOGLOBIN A1c (test code = 58923) 6.4 % HEMOGLOBIN [id number] 00:00:00 Test Item Value Reference Range Interpretation Comments HEMOGLOBIN A1c (test code = 37303) 6.4 % COMPREHENSIVE METABOLIC [id number] 00:00:00 Test Item Value Reference Range Interpretation Comments GLUCOSE (test code = 2217) 206 MG/DL BUN (test code = 2208) 23 MG/DL CREATININE (test code = 2214) 0.67 MG/DL eGFR AMER. (test code 112 ML/MIN/1.73 = 92455) eGFR NON- AMER. (test 97 ML/MIN/1.73 code = 62231) CALC BUN/CREAT (test code = 34 RATIO [...] code = 2219) 25 U/L COMPREHENSIVE METABOLIC [id number] 00:00:00 Test Item Value Reference Range Interpretation Comments GLUCOSE (test code = 2217) 206 MG/DL BUN (test code = 2208) 23 MG/DL CREATININE (test code = 2214) 0.67 MG/DL eGFR AMER. (test code 112 ML/MIN/1.73 = 78214) eGFR NON- AMER. (test 97 ML/MIN/1.73 code = 83500) CALC BUN/CREAT (test code = 34 RATIO [...] ALT (test code = 2219) 25 U/L [id number] 00:00:00 Test Item Value Reference Range Interpretation Comments TSH, THIRD GENERATION (test code 2.490 UIU/ML = 2821) [id number] 00:00:00 Test Item Value Reference Range Interpretation Comments TSH, THIRD GENERATION (test code 2.490 UIU/ML = 2821) [id number] 00:00:00 Test Item Value Reference Range Interpretation Comments TSH, THIRD GENERATION (test code 2.490 UIU/ML = 2821) HEMOGLOBIN [id number] 00:00:00 Test Item Value Reference Range Interpretation Comments HEMOGLOBIN A1c (test code = 79590) 6.4 % HEMOGLOBIN [id number] 00:00:00 Test Item Value Reference Range Interpretation Comments HEMOGLOBIN A1c (test code = 60473) 6.4 % HEMOGLOBIN [id number] 00:00:00 Test Item Value Reference Range Interpretation Comments HEMOGLOBIN A1c (test code = 35174) 6.4 % COMPREHENSIVE METABOLIC [id number] 00:00:00 Test Item Value Reference Range Interpretation Comments GLUCOSE (test code = 2217) 206 MG/DL BUN (test code = 2208) 23 MG/DL CREATININE (test code = 2214) 0.67 MG/DL eGFR AMER. (test code 112 ML/MIN/1.73 = 66645) eGFR NON- AMER. (test 97 ML/MIN/1.73 code = 71325) CALC BUN/CREAT (test code = 34 RATIO [...] code = 2219) 25 U/L COMPREHENSIVE METABOLIC [id number] 00:00:00 Test Item Value Reference Range Interpretation Comments GLUCOSE (test code = 2217) 206 MG/DL BUN (test code = 2208) 23 MG/DL CREATININE (test code = 2214) 0.67 MG/DL eGFR AMER. (test code 112 ML/MIN/1.73 = 73026) eGFR NON- AMER. (test 97 ML/MIN/1.73 code = 18921) CALC BUN/CREAT (test code = 34 RATIO [...] ALT (test code = 2219) 25 U/L [id number] 00:00:00 Test Item Value Reference Range Interpretation Comments TSH, THIRD GENERATION (test code 2.490 UIU/ML = 2821) [id number] 00:00:00 Test Item Value Reference Range Interpretation Comments TSH, THIRD GENERATION (test code 2.490 UIU/ML = 2821) HEMOGLOBIN [id number] 00:00:00 Test Item Value Reference Range Interpretation Comments HEMOGLOBIN A1c (test code = 23075) 6.4 % HEMOGLOBIN [id number] 00:00:00 Test Item Value Reference Range Interpretation Comments HEMOGLOBIN A1c (test code = 85439) 6.4 % COMPREHENSIVE METABOLIC [id number] 00:00:00 Test Item Value Reference Range Interpretation Comments GLUCOSE (test code = 2217) 206 MG/DL BUN (test code = 2208) 23 MG/DL CREATININE (test code = 2214) 0.67 MG/DL eGFR AMER. (test code 112 ML/MIN/1.73 = 35880) eGFR NON- AMER. (test 97 ML/MIN/1.73 code = 19305) CALC BUN/CREAT (test code = 34 RATIO [...] ALT (test code = 2219) 25 U/L [id number] 00:00:00 Test Item Value Reference Range Interpretation Comments TSH, THIRD GENERATION (test code 2.490 UIU/ML = 2821) [id number] 00:00:00 Test Item Value Reference Range Interpretation Comments TSH, THIRD GENERATION (test code 2.490 UIU/ML = 2821) [id number] 00:00:00 Test Item Value Reference Range Interpretation Comments TSH, THIRD GENERATION (test code 2.490 UIU/ML = 2821) HEMOGLOBIN [id number] 00:00:00 Test Item Value Reference Range Interpretation Comments HEMOGLOBIN A1c (test code = 39085) 6.4 % HEMOGLOBIN [id number] 00:00:00 Test Item Value Reference Range Interpretation Comments HEMOGLOBIN A1c (test code = 94269) 6.4 % HEMOGLOBIN [id number] 00:00:00 Test Item Value Reference Range Interpretation Comments HEMOGLOBIN A1c (test code = 60076) 6.4 % COMPREHENSIVE METABOLIC [id number] 00:00:00 Test Item Value Reference Range Interpretation Comments GLUCOSE (test code = 2217) 206 MG/DL BUN (test code = 2208) 23 MG/DL CREATININE (test code = 2214) 0.67 MG/DL eGFR AMER. (test code 112 ML/MIN/1.73 = 87801) eGFR NON- AMER. (test 97 ML/MIN/1.73 code = 91064) CALC BUN/CREAT (test code = 34 RATIO [...] code = 2219) 25 U/L COMPREHENSIVE METABOLIC [id number] 00:00:00 Test Item Value Reference Range Interpretation Comments GLUCOSE (test code = 2217) 206 MG/DL BUN (test code = 2208) 23 MG/DL CREATININE (test code = 2214) 0.67 MG/DL eGFR AMER. (test code 112 ML/MIN/1.73 = 62796) eGFR NON- AMER. (test 97 ML/MIN/1.73 code = 37814) CALC BUN/CREAT (test code = 34 RATIO [...] = 2219) 25 U/L VAGINAL PATHOGENS DNA [id number] 00:00:00 Test Item Value Reference Range Interpretation Comments MARK SPECIES (test code = 11372) NEGATIVE G. VAGINALIS (test code = 33929) NEGATIVE T. VAGINALIS (test code = 53551) NEGATIVE VAGINAL PATHOGENS DNA [id number] 00:00:00 Test Item Value Reference Range Interpretation Comments MARK SPECIES (test code = 32576) NEGATIVE G. VAGINALIS (test code = 80661) NEGATIVE T. VAGINALIS (test code = 42618) NEGATIVE VAGINAL PATHOGENS DNA [id number] 00:00:00 Test Item Value Reference Range Interpretation Comments MARK SPECIES (test code = 03229) NEGATIVE G. VAGINALIS (test code = 07108) NEGATIVE T. VAGINALIS (test code = 01669) NEGATIVE VAGINAL PATHOGENS DNA [id number] 00:00:00 Test Item Value Reference Range Interpretation Comments MARK SPECIES (test code = 91504) NEGATIVE G. VAGINALIS (test code = 53645) NEGATIVE T. VAGINALIS (test code = 75227) NEGATIVE VAGINAL PATHOGENS DNA [id number] 00:00:00 Test Item Value Reference Range Interpretation Comments MARK SPECIES (test code = 02920) NEGATIVE G. VAGINALIS (test code = 56399) NEGATIVE T. VAGINALIS (test code = 02539) NEGATIVE VAGINAL PATHOGENS DNA [id number] 00:00:00 Test Item Value Reference Range Interpretation Comments MARK SPECIES (test code = 13446) NEGATIVE G. VAGINALIS (test code = 07296) NEGATIVE T. VAGINALIS (test code = 32004) NEGATIVE VAGINAL PATHOGENS DNA [id number] 00:00:00 Test Item Value Reference Range Interpretation Comments MARK SPECIES (test code = 03058) NEGATIVE G. VAGINALIS (test code = 73196) NEGATIVE T. VAGINALIS (test code = 77972) NEGATIVE HEMOGLOBIN A1c [ADDED]2018-12-01 00:00:00 Test Item Value Reference Range Interpretation Comments HEMOGLOBIN A1c (test code = 02520) 6.7 % HEMOGLOBIN A1c [ADDED]2018-12-01 00:00:00 Test Item Value Reference Range Interpretation Comments HEMOGLOBIN A1c (test code = 62203) 6.7 % HEMOGLOBIN A1c [ADDED]2018-12-01 00:00:00 Test Item Value Reference Range Interpretation Comments HEMOGLOBIN A1c (test code = 36081) 6.7 % COMPREHENSIVE METABOLIC PANEL [ADDED]2018-12-01 00:00:00 Test Item Value Reference Range Interpretation Comments GLUCOSE (test code = 2217) 136 MG/DL BUN (test code = 2208) 15 MG/DL CREATININE (test code = 2214) 0.64 MG/DL eGFR AMER. (test code 115 ML/MIN/1.73 = 36863) eGFR NON- AMER. (test 99 ML/MIN/1.73 code = 10881) CALC BUN/CREAT (test code = 23 RATIO [...] eGFR AMER. (test code 115 ML/MIN/1.73 = 81725) eGFR NON- AMER. (test 99 ML/MIN/1.73 code = 62046) CALC BUN/CREAT (test code = 23 RATIO [...] Interpretation Comments HEMOGLOBIN A1c (test code = 49190) 6.7 % HEMOGLOBIN A1c [ADDED]2018-12-01 00:00:00 Test Item Value Reference Range Interpretation Comments HEMOGLOBIN A1c (test code = 49203) 6.7 % HEMOGLOBIN A1c [ADDED]2018-12-01 00:00:00 Test Item Value Reference Range Interpretation Comments HEMOGLOBIN A1c (test code = 93385) 6.7 % COMPREHENSIVE METABOLIC PANEL [ADDED]2018-12-01 00:00:00 Test Item Value Reference Range Interpretation Comments GLUCOSE (test code = 2217) 136 MG/DL BUN (test code = 2208) 15 MG/DL CREATININE (test code = 2214) 0.64 MG/DL eGFR AMER. (test code 115 ML/MIN/1.73 = 53972) eGFR NON- AMER. (test 99 ML/MIN/1.73 code = 65648) CALC BUN/CREAT (test code = 23 RATIO [...] eGFR AMER. (test code 115 ML/MIN/1.73 = 19106) eGFR NON- AMER. (test 99 ML/MIN/1.73 code = 36187) CALC BUN/CREAT (test code = 23 RATIO [...] Interpretation Comments HEMOGLOBIN A1c (test code = 48259) 6.7 % HEMOGLOBIN A1c [ADDED]2018-12-01 00:00:00 Test Item Value Reference Range Interpretation Comments HEMOGLOBIN A1c (test code = 90409) 6.7 % COMPREHENSIVE METABOLIC PANEL [ADDED]2018-12-01 00:00:00 Test Item Value Reference Range Interpretation Comments GLUCOSE (test code = 2217) 136 MG/DL BUN (test code = 2208) 15 MG/DL CREATININE (test code = 2214) 0.64 MG/DL eGFR AMER. (test code 115 ML/MIN/1.73 = 22441) eGFR NON- AMER. (test 99 ML/MIN/1.73 code = 45685) CALC BUN/CREAT (test code = 23 RATIO [...] Interpretation Comments HEMOGLOBIN A1c (test code = 43921) 6.7 % HEMOGLOBIN A1c [ADDED]2018-12-01 00:00:00 Test Item Value Reference Range Interpretation Comments HEMOGLOBIN A1c (test code = 25024) 6.7 % HEMOGLOBIN A1c [ADDED]2018-12-01 00:00:00 Test Item Value Reference Range Interpretation Comments HEMOGLOBIN A1c (test code = 88870) 6.7 % COMPREHENSIVE METABOLIC PANEL [ADDED]2018-12-01 00:00:00 Test Item Value Reference Range Interpretation Comments GLUCOSE (test code = 2217) 136 MG/DL BUN (test code = 2208) 15 MG/DL CREATININE (test code = 2214) 0.64 MG/DL eGFR AMER. (test code 115 ML/MIN/1.73 = 86215) eGFR NON- AMER. (test 99 ML/MIN/1.73 code = 53287) CALC BUN/CREAT (test code = 23 RATIO [...] eGFR AMER. (test code 115 ML/MIN/1.73 = 01472) eGFR NON- AMER. (test 99 ML/MIN/1.73 code = 74569) CALC BUN/CREAT (test code = 23 RATIO [...] code 1.280 UIU/ML = 2821) COMPREHENSIVE METABOLIC [id number] 00:00:00 Test Item Value Reference Range Interpretation Comments GLUCOSE (test code = 2217) 113 MG/DL BUN (test code = 2208) 18 MG/DL CREATININE (test code = 2214) 0.70 MG/DL eGFR AMER. (test code 111 ML/MIN/1.73 = 87677) eGFR NON- AMER. (test 96 ML/MIN/1.73 code = 04229) CALC BUN/CREAT (test code = 26 RATIO [...] code = 2219) 31 U/L COMPREHENSIVE METABOLIC [id number] 00:00:00 Test Item Value Reference Range Interpretation Comments GLUCOSE (test code = 2217) 113 MG/DL BUN (test code = 2208) 18 MG/DL CREATININE (test code = 2214) 0.70 MG/DL eGFR AMER. (test code 111 ML/MIN/1.73 = 06501) eGFR NON- AMER. (test 96 ML/MIN/1.73 code = 86724) CALC BUN/CREAT (test code = 26 RATIO [...] ALT (test code = 2219) 31 U/L [id number] 00:00:00 Test Item Value Reference Range Interpretation Comments TSH, THIRD GENERATION (test code 2.520 UIU/ML = 2821) [id number] 00:00:00 Test Item Value Reference Range Interpretation Comments TSH, THIRD GENERATION (test code 2.520 UIU/ML = 2821) [id number] 00:00:00 Test Item Value Reference Range Interpretation Comments TSH, THIRD GENERATION (test code 2.520 UIU/ML = 2821) CBC W/AUTO [id number] 00:00:00 Test Item Value Reference Range Interpretation [...] code = 1015) 346 K/UL CBC W/AUTO [id number] 00:00:00 Test Item Value Reference Range Interpretation [...] code = 1015) 346 K/UL CBC W/AUTO [id number] 00:00:00 Test Item Value Reference Range Interpretation [...] (test code = 1015) 346 K/UL HEMOGLOBIN [id number] 00:00:00 Test Item Value Reference Range Interpretation Comments HEMOGLOBIN A1c (test code = 34751) 5.9 % HEMOGLOBIN [id number] 00:00:00 Test Item Value Reference Range Interpretation Comments HEMOGLOBIN A1c (test code = 42284) 5.9 % HEMOGLOBIN [id number] 00:00:00 Test Item Value Reference Range Interpretation Comments HEMOGLOBIN A1c (test code = 64349) 5.9 % LIPID [id number] 00:00:00 Test Item Value Reference Range Interpretation Comments CHOLESTEROL (test code = 2210) 318 MG/DL TRIGLYCERIDES (test code = 2232) 263 MG/DL HDL CHOLESTEROL (test code = 2220) 51 MG/DL CALC LDL CHOL (test code = 2237) 214 MG/DL RISK RATIO LDL/HDL (test code = 4.20 RATIO 2238) LIPID [id number] 00:00:00 Test Item Value Reference Range Interpretation Comments CHOLESTEROL (test code = 2210) 318 MG/DL TRIGLYCERIDES (test code = 2232) 263 MG/DL HDL CHOLESTEROL (test code = 2220) 51 MG/DL CALC LDL CHOL (test code = 2237) 214 MG/DL RISK RATIO LDL/HDL (test code = 4.20 RATIO 2238) COMPREHENSIVE METABOLIC [id number] 00:00:00 Test Item Value Reference Range Interpretation Comments GLUCOSE (test code = 2217) 113 MG/DL BUN (test code = 2208) 18 MG/DL CREATININE (test code = 2214) 0.70 MG/DL eGFR AMER. (test code 111 ML/MIN/1.73 = 70579) eGFR NON- AMER. (test 96 ML/MIN/1.73 code = 25106) CALC BUN/CREAT (test code = 26 RATIO [...] code = 2219) 31 U/L COMPREHENSIVE METABOLIC [id number] 00:00:00 Test Item Value Reference Range Interpretation Comments GLUCOSE (test code = 2217) 113 MG/DL BUN (test code = 2208) 18 MG/DL CREATININE (test code = 2214) 0.70 MG/DL eGFR AMER. (test code 111 ML/MIN/1.73 = 25872) eGFR NON- AMER. (test 96 ML/MIN/1.73 code = 72891) CALC BUN/CREAT (test code = 26 RATIO [...] ALT (test code = 2219) 31 U/L [id number] 00:00:00 Test Item Value Reference Range Interpretation Comments TSH, THIRD GENERATION (test code 2.520 UIU/ML = 2821) [id number] 00:00:00 Test Item Value Reference Range Interpretation Comments TSH, THIRD GENERATION (test code 2.520 UIU/ML = 2821) [id number] 00:00:00 Test Item Value Reference Range Interpretation Comments TSH, THIRD GENERATION (test code 2.520 UIU/ML = 2821) CBC W/AUTO [id number] 00:00:00 Test Item Value Reference Range Interpretation [...] code = 1015) 346 K/UL CBC W/AUTO [id number] 00:00:00 Test Item Value Reference Range Interpretation [...] code = 1015) 346 K/UL CBC W/AUTO [id number] 00:00:00 Test Item Value Reference Range Interpretation [...] (test code = 1015) 346 K/UL HEMOGLOBIN [id number] 00:00:00 Test Item Value Reference Range Interpretation Comments HEMOGLOBIN A1c (test code = 82284) 5.9 % HEMOGLOBIN [id number] 00:00:00 Test Item Value Reference Range Interpretation Comments HEMOGLOBIN A1c (test code = 54616) 5.9 % HEMOGLOBIN [id number] 00:00:00 Test Item Value Reference Range Interpretation Comments HEMOGLOBIN A1c (test code = 31934) 5.9 % LIPID [id number] 00:00:00 Test Item Value Reference Range Interpretation Comments CHOLESTEROL (test code = 2210) 318 MG/DL TRIGLYCERIDES (test code = 2232) 263 MG/DL HDL CHOLESTEROL (test code = 2220) 51 MG/DL CALC LDL CHOL (test code = 2237) 214 MG/DL RISK RATIO LDL/HDL (test code = 4.20 RATIO 2238) LIPID [id number] 00:00:00 Test Item Value Reference Range Interpretation Comments CHOLESTEROL (test code = 2210) 318 MG/DL TRIGLYCERIDES (test code = 2232) 263 MG/DL HDL CHOLESTEROL (test code = 2220) 51 MG/DL CALC LDL CHOL (test code = 2237) 214 MG/DL RISK RATIO LDL/HDL (test code = 4.20 RATIO 2238) COMPREHENSIVE METABOLIC [id number] 00:00:00 Test Item Value Reference Range Interpretation Comments GLUCOSE (test code = 2217) 113 MG/DL BUN (test code = 2208) 18 MG/DL CREATININE (test code = 2214) 0.70 MG/DL eGFR AMER. (test code 111 ML/MIN/1.73 = 46218) eGFR NON- AMER. (test 96 ML/MIN/1.73 code = 90705) CALC BUN/CREAT (test code = 26 RATIO [...] code = 2219) 31 U/L COMPREHENSIVE METABOLIC [id number] 00:00:00 Test Item Value Reference Range Interpretation Comments GLUCOSE (test code = 2217) 113 MG/DL BUN (test code = 2208) 18 MG/DL CREATININE (test code = 2214) 0.70 MG/DL eGFR AMER. (test code 111 ML/MIN/1.73 = 20216) eGFR NON- AMER. (test 96 ML/MIN/1.73 code = 00506) CALC BUN/CREAT (test code = 26 RATIO [...] ALT (test code = 2219) 31 U/L [id number] 00:00:00 Test Item Value Reference Range Interpretation Comments TSH, THIRD GENERATION (test code 2.520 UIU/ML = 2821) [id number] 00:00:00 Test Item Value Reference Range Interpretation Comments TSH, THIRD GENERATION (test code 2.520 UIU/ML = 2821) [id number] 00:00:00 Test Item Value Reference Range Interpretation Comments TSH, THIRD GENERATION (test code 2.520 UIU/ML = 2821) CBC W/AUTO [id number] 00:00:00 Test Item Value Reference Range Interpretation [...] code = 1015) 346 K/UL CBC W/AUTO [id number] 00:00:00 Test Item Value Reference Range Interpretation [...] (test code = 1015) 346 K/UL HEMOGLOBIN [id number] 00:00:00 Test Item Value Reference Range Interpretation Comments HEMOGLOBIN A1c (test code = 95195) 5.9 % HEMOGLOBIN [id number] 00:00:00 Test Item Value Reference Range Interpretation Comments HEMOGLOBIN A1c (test code = 29419) 5.9 % LIPID [id number] 00:00:00 Test Item Value Reference Range Interpretation Comments CHOLESTEROL (test code = 2210) 318 MG/DL TRIGLYCERIDES (test code = 2232) 263 MG/DL HDL CHOLESTEROL (test code = 2220) 51 MG/DL CALC LDL CHOL (test code = 2237) 214 MG/DL RISK RATIO LDL/HDL (test code = 4.20 RATIO 2238) COMPREHENSIVE METABOLIC [id number] 00:00:00 Test Item Value Reference Range Interpretation Comments GLUCOSE (test code = 2217) 113 MG/DL BUN (test code = 2208) 18 MG/DL CREATININE (test code = 2214) 0.70 MG/DL eGFR AMER. (test code 111 ML/MIN/1.73 = 03358) eGFR NON- AMER. (test 96 ML/MIN/1.73 code = 06140) CALC BUN/CREAT (test code = 26 RATIO [...] ALT (test code = 2219) 31 U/L [id number] 00:00:00 Test Item Value Reference Range Interpretation Comments TSH, THIRD GENERATION (test code 2.520 UIU/ML = 2821) [id number] 00:00:00 Test Item Value Reference Range Interpretation Comments TSH, THIRD GENERATION (test code 2.520 UIU/ML = 2821) CBC W/AUTO [id number] 00:00:00 Test Item Value Reference Range Interpretation [...] code = 1015) 346 K/UL CBC W/AUTO [id number] 00:00:00 Test Item Value Reference Range Interpretation [...] code = 1015) 346 K/UL CBC W/AUTO [id number] 00:00:00 Test Item Value Reference Range Interpretation [...] (test code = 1015) 346 K/UL HEMOGLOBIN [id number] 00:00:00 Test Item Value Reference Range Interpretation Comments HEMOGLOBIN A1c (test code = 34693) 5.9 % HEMOGLOBIN [id number] 00:00:00 Test Item Value Reference Range Interpretation Comments HEMOGLOBIN A1c (test code = 19702) 5.9 % HEMOGLOBIN [id number] 00:00:00 Test Item Value Reference Range Interpretation Comments HEMOGLOBIN A1c (test code = 30298) 5.9 % LIPID [id number] 00:00:00 Test Item Value Reference Range Interpretation Comments CHOLESTEROL (test code = 2210) 318 MG/DL TRIGLYCERIDES (test code = 2232) 263 MG/DL HDL CHOLESTEROL (test code = 2220) 51 MG/DL CALC LDL CHOL (test code = 2237) 214 MG/DL RISK RATIO LDL/HDL (test code = 4.20 RATIO 2238) LIPID [id number] 00:00:00 Test Item Value Reference Range Interpretation Comments CHOLESTEROL (test code = 2210) 318 MG/DL TRIGLYCERIDES (test code = 2232) 263 MG/DL HDL CHOLESTEROL (test code = 2220) 51 MG/DL CALC LDL CHOL (test code = 2237) 214 MG/DL RISK RATIO LDL/HDL (test code = 4.20 RATIO 2238) CULTURE, [id number] 00:00:00 Test Item Value Reference Range Interpretation Comments CULTURE, URINE (test SPECIMEN NUMBER: code = 43669) [id number] CULTURE, [id number] 00:00:00 Test Item Value Reference Range Interpretation Comments CULTURE, URINE (test SPECIMEN NUMBER: code = 56234) [id number] CULTURE, [id number] 00:00:00 Test Item Value Reference Range Interpretation Comments CULTURE, URINE (test SPECIMEN NUMBER: code = 40858) [id number] CULTURE, [id number] 00:00:00 Test Item Value Reference Range Interpretation Comments CULTURE, URINE (test SPECIMEN NUMBER: code = 68533) [id number] CULTURE, [id number] 00:00:00 Test Item Value Reference Range Interpretation Comments CULTURE, URINE (test SPECIMEN NUMBER: code = 25493) [id number] CULTURE, [id number] 00:00:00 Test Item Value Reference Range Interpretation Comments CULTURE, URINE (test SPECIMEN NUMBER: code = 97060) [id number] CULTURE, [id number] 00:00:00 Test Item Value Reference Range Interpretation Comments CULTURE, URINE (test SPECIMEN NUMBER: code = 66963) [id number] CULTURE, [id number] 00:00:00 Test Item Value Reference Range Interpretation Comments CULTURE, URINE (test SPECIMEN NUMBER: code = 01182) [id number] CULTURE, [id number] 00:00:00 Test Item Value Reference Range Interpretation Comments CULTURE, URINE (test SPECIMEN NUMBER: code = 94411) [id number] CULTURE, [id number] 00:00:00 Test Item Value Reference Range Interpretation Comments CULTURE, URINE (test SPECIMEN NUMBER: code = 45711) [id number] CULTURE, [id number] 00:00:00 Test Item Value Reference Range Interpretation Comments CULTURE, URINE (test SPECIMEN NUMBER: code = 72826) [id number] CULTURE, [id number] 00:00:00 Test Item Value Reference Range Interpretation Comments CULTURE, URINE (test SPECIMEN NUMBER: code = 86750) [id number] CULTURE, [id number] 00:00:00 Test Item Value Reference Range Interpretation Comments CULTURE, URINE (test SPECIMEN NUMBER: code = 77780) [id number] CULTURE, [id number] 00:00:00 Test Item Value Reference Range Interpretation Comments CULTURE, URINE (test SPECIMEN NUMBER: code = 68892) [id number] 00:00:00 Test Item Value Reference Range Interpretation Comments TSH, THIRD GENERATION (test code 0.988 UIU/ML = 2821) [id number] 00:00:00 Test Item Value Reference Range Interpretation Comments TSH, THIRD GENERATION (test code 0.988 UIU/ML = 2821) [id number] 00:00:00 Test Item Value Reference Range Interpretation Comments TSH, THIRD GENERATION (test code 0.988 UIU/ML = 2821) BASIC METABOLIC [id number] 00:00:00 Test Item Value Reference Range Interpretation Comments GLUCOSE (test code = 2217) 135 MG/DL BUN (test code = 2208) 25 MG/DL CREATININE (test code = 2214) 0.76 MG/DL eGFR AMER. (test code 101 ML/MIN/1.73 = 89169) eGFR NON- AMER. (test 87 ML/MIN/1.73 code = 06440) SODIUM (test code = 2231) 139 MEQ/L POTASSIUM (test code = 2228) 4.7 MEQ/L CHLORIDE (test code = 2215) 99 MEQ/L CARBON DIOXIDE (test code = 26 MEQ/L 2206) CALCIUM (test code = 2209) 9.4 MG/DL BASIC METABOLIC [id number] 00:00:00 Test Item Value Reference Range Interpretation Comments GLUCOSE (test code = 2217) 135 MG/DL BUN (test code = 2208) 25 MG/DL CREATININE (test code = 2214) 0.76 MG/DL eGFR AMER. (test code 101 ML/MIN/1.73 = 86029) eGFR NON- AMER. (test 87 ML/MIN/1.73 code = 57492) SODIUM (test code = 2231) 139 MEQ/L POTASSIUM (test code = 2228) 4.7 MEQ/L CHLORIDE (test code = 2215) 99 MEQ/L CARBON DIOXIDE (test code = 26 MEQ/L 2206) CALCIUM (test code = 2209) 9.4 MG/DL LIPID [id number] 00:00:00 Test Item Value Reference Range Interpretation Comments CHOLESTEROL (test code = 2210) 262 MG/DL TRIGLYCERIDES (test code = 2232) 300 MG/DL HDL CHOLESTEROL (test code = 2220) 36 MG/DL CALC LDL CHOL (test code = 2237) 166 MG/DL RISK RATIO LDL/HDL (test code = 4.61 RATIO 2238) LIPID [id number] 00:00:00 Test Item Value Reference Range Interpretation Comments CHOLESTEROL (test code = 2210) 262 MG/DL TRIGLYCERIDES (test code = 2232) 300 MG/DL HDL CHOLESTEROL (test code = 2220) 36 MG/DL CALC LDL CHOL (test code = 2237) 166 MG/DL RISK RATIO LDL/HDL (test code = 4.61 RATIO 2238) HEMOGLOBIN [id number] 00:00:00 Test Item Value Reference Range Interpretation Comments HEMOGLOBIN A1c (test code = 02947) 6.2 % HEMOGLOBIN [id number] 00:00:00 Test Item Value Reference Range Interpretation Comments HEMOGLOBIN A1c (test code = 52048) 6.2 % HEMOGLOBIN [id number] 00:00:00 Test Item Value Reference Range Interpretation Comments HEMOGLOBIN A1c (test code = 37041) 6.2 % [id number] 00:00:00 Test Item Value Reference Range Interpretation Comments TSH, THIRD GENERATION (test code 0.988 UIU/ML = 2821) [id number] 00:00:00 Test Item Value Reference Range Interpretation Comments TSH, THIRD GENERATION (test code 0.988 UIU/ML = 2821) [id number] 00:00:00 Test Item Value Reference Range Interpretation Comments TSH, THIRD GENERATION (test code 0.988 UIU/ML = 2821) BASIC METABOLIC [id number] 00:00:00 Test Item Value Reference Range Interpretation Comments GLUCOSE (test code = 2217) 135 MG/DL BUN (test code = 2208) 25 MG/DL CREATININE (test code = 2214) 0.76 MG/DL eGFR AMER. (test code 101 ML/MIN/1.73 = 34005) eGFR NON- AMER. (test 87 ML/MIN/1.73 code = 83713) SODIUM (test code = 2231) 139 MEQ/L POTASSIUM (test code = 2228) 4.7 MEQ/L CHLORIDE (test code = 2215) 99 MEQ/L CARBON DIOXIDE (test code = 26 MEQ/L 220) CALCIUM (test code = 2209) 9.4 MG/DL BASIC METABOLIC [id number] 00:00:00 Test Item Value Reference Range Interpretation Comments GLUCOSE (test code = 2217) 135 MG/DL BUN (test code = 2208) 25 MG/DL CREATININE (test code = 2214) 0.76 MG/DL eGFR AMER. (test code 101 ML/MIN/1.73 = 99228) eGFR NON- AMER. (test 87 ML/MIN/1.73 code = 00026) SODIUM (test code = 2231) 139 MEQ/L POTASSIUM (test code = 2228) 4.7 MEQ/L CHLORIDE (test code = 2215) 99 MEQ/L CARBON DIOXIDE (test code = 26 MEQ/L 2206) CALCIUM (test code = 2209) 9.4 MG/DL LIPID [id number] 00:00:00 Test Item Value Reference Range Interpretation Comments CHOLESTEROL (test code = 2210) 262 MG/DL TRIGLYCERIDES (test code = 2232) 300 MG/DL HDL CHOLESTEROL (test code = 2220) 36 MG/DL CALC LDL CHOL (test code = 2237) 166 MG/DL RISK RATIO LDL/HDL (test code = 4.61 RATIO 2238) LIPID [id number] 00:00:00 Test Item Value Reference Range Interpretation Comments CHOLESTEROL (test code = 2210) 262 MG/DL TRIGLYCERIDES (test code = 2232) 300 MG/DL HDL CHOLESTEROL (test code = 2220) 36 MG/DL CALC LDL CHOL (test code = 2237) 166 MG/DL RISK RATIO LDL/HDL (test code = 4.61 RATIO 2238) HEMOGLOBIN [id number] 00:00:00 Test Item Value Reference Range Interpretation Comments HEMOGLOBIN A1c (test code = 08821) 6.2 % HEMOGLOBIN [id number] 00:00:00 Test Item Value Reference Range Interpretation Comments HEMOGLOBIN A1c (test code = 53102) 6.2 % HEMOGLOBIN [id number] 00:00:00 Test Item Value Reference Range Interpretation Comments HEMOGLOBIN A1c (test code = 02543) 6.2 % [id number] 00:00:00 Test Item Value Reference Range Interpretation Comments TSH, THIRD GENERATION (test code 0.988 UIU/ML = 2821) [id number] 00:00:00 Test Item Value Reference Range Interpretation Comments TSH, THIRD GENERATION (test code 0.988 UIU/ML = 2821) [id number] 00:00:00 Test Item Value Reference Range Interpretation Comments TSH, THIRD GENERATION (test code 0.988 UIU/ML = 2821) BASIC METABOLIC [id number] 00:00:00 Test Item Value Reference Range Interpretation Comments GLUCOSE (test code = 2217) 135 MG/DL BUN (test code = 2208) 25 MG/DL CREATININE (test code = 2214) 0.76 MG/DL eGFR AMER. (test code 101 ML/MIN/1.73 = 31423) eGFR NON- AMER. (test 87 ML/MIN/1.73 code = 63020) SODIUM (test code = 2231) 139 MEQ/L POTASSIUM (test code = 2228) 4.7 MEQ/L CHLORIDE (test code = 2215) 99 MEQ/L CARBON DIOXIDE (test code = 26 MEQ/L 2206) CALCIUM (test code = 2209) 9.4 MG/DL LIPID [id number] 00:00:00 Test Item Value Reference Range Interpretation Comments CHOLESTEROL (test code = 2210) 262 MG/DL TRIGLYCERIDES (test code = 2232) 300 MG/DL HDL CHOLESTEROL (test code = 2220) 36 MG/DL CALC LDL CHOL (test code = 2237) 166 MG/DL RISK RATIO LDL/HDL (test code = 4.61 RATIO 2238) HEMOGLOBIN [id number] 00:00:00 Test Item Value Reference Range Interpretation Comments HEMOGLOBIN A1c (test code = 51665) 6.2 % HEMOGLOBIN [id number] 00:00:00 Test Item Value Reference Range Interpretation Comments HEMOGLOBIN A1c (test code = 64079) 6.2 % [id number] 00:00:00 Test Item Value Reference Range Interpretation Comments TSH, THIRD GENERATION (test code 0.988 UIU/ML = 2821) [id number] 00:00:00 Test Item Value Reference Range Interpretation Comments TSH, THIRD GENERATION (test code 0.988 UIU/ML = 2821) BASIC METABOLIC [id number] 00:00:00 Test Item Value Reference Range Interpretation Comments GLUCOSE (test code = 2217) 135 MG/DL BUN (test code = 2208) 25 MG/DL CREATININE (test code = 2214) 0.76 MG/DL eGFR AMER. (test code 101 ML/MIN/1.73 = 46276) eGFR NON- AMER. (test 87 ML/MIN/1.73 code = 64768) SODIUM (test code = 2231) 139 MEQ/L POTASSIUM (test code = 2228) 4.7 MEQ/L CHLORIDE (test code = 2215) 99 MEQ/L CARBON DIOXIDE (test code = 26 MEQ/L 2206) CALCIUM (test code = 2209) 9.4 MG/DL BASIC METABOLIC [id number] 00:00:00 Test Item Value Reference Range Interpretation Comments GLUCOSE (test code = 2217) 135 MG/DL BUN (test code = 2208) 25 MG/DL CREATININE (test code = 2214) 0.76 MG/DL eGFR AMER. (test code 101 ML/MIN/1.73 = 07710) eGFR NON- AMER. (test 87 ML/MIN/1.73 code = 82780) SODIUM (test code = 2231) 139 MEQ/L POTASSIUM (test code = 2228) 4.7 MEQ/L CHLORIDE (test code = 2215) 99 MEQ/L CARBON DIOXIDE (test code = 26 MEQ/L 2206) CALCIUM (test code = 2209) 9.4 MG/DL LIPID [id number] 00:00:00 Test Item Value Reference Range Interpretation Comments CHOLESTEROL (test code = 2210) 262 MG/DL TRIGLYCERIDES (test code = 2232) 300 MG/DL HDL CHOLESTEROL (test code = 2220) 36 MG/DL CALC LDL CHOL (test code = 2237) 166 MG/DL RISK RATIO LDL/HDL (test code = 4.61 RATIO 2238) LIPID [id number] 00:00:00 Test Item Value Reference Range Interpretation Comments CHOLESTEROL (test code = 2210) 262 MG/DL TRIGLYCERIDES (test code = 2232) 300 MG/DL HDL CHOLESTEROL (test code = 2220) 36 MG/DL CALC LDL CHOL (test code = 2237) 166 MG/DL RISK RATIO LDL/HDL (test code = 4.61 RATIO 2238) HEMOGLOBIN [id number] 00:00:00 Test Item Value Reference Range Interpretation Comments HEMOGLOBIN A1c (test code = 59474) 6.2 % HEMOGLOBIN [id number] 00:00:00 Test Item Value Reference Range Interpretation Comments HEMOGLOBIN A1c (test code = 18875) 6.2 % HEMOGLOBIN [id number] 00:00:00 Test Item Value Reference Range Interpretation Comments HEMOGLOBIN A1c (test code = 09069) 6.2 % [id number] 00:00:00 Test Item Value Reference Range Interpretation Comments TSH, THIRD GENERATION (test code 0.565 UIU/ML = 2821) [id number] 00:00:00 Test Item Value Reference Range Interpretation Comments TSH, THIRD GENERATION (test code 0.565 UIU/ML = 2821) [id number] 00:00:00 Test Item Value Reference Range Interpretation Comments TSH, THIRD GENERATION (test code 0.565 UIU/ML = 2821) COMPREHENSIVE METABOLIC [id number] 00:00:00 Test Item Value Reference Range Interpretation Comments GLUCOSE (test code = 2217) 109 MG/DL BUN (test code = 2208) 25 MG/DL CREATININE (test code = 2214) 0.78 MG/DL eGFR AMER. (test code 98 ML/MIN/1.73 = 33802) eGFR NON- AMER. (test 84 ML/MIN/1.73 code = 77257) CALC BUN/CREAT (test code = 32 RATIO [...] code = 2219) 25 U/L COMPREHENSIVE METABOLIC [id number] 00:00:00 Test Item Value Reference Range Interpretation Comments GLUCOSE (test code = 2217) 109 MG/DL BUN (test code = 2208) 25 MG/DL CREATININE (test code = 2214) 0.78 MG/DL eGFR AMER. (test code 98 ML/MIN/1.73 = 49211) eGFR NON- AMER. (test 84 ML/MIN/1.73 code = 34023) CALC BUN/CREAT (test code = 32 RATIO [...] (test code = 2219) 25 U/L LIPID [id number] 00:00:00 Test Item Value Reference Range Interpretation Comments CHOLESTEROL (test code = 2210) 295 MG/DL TRIGLYCERIDES (test code = 2232) 218 MG/DL HDL CHOLESTEROL (test code = 2220) 46 MG/DL CALC LDL CHOL (test code = 2237) 205 MG/DL RISK RATIO LDL/HDL (test code = 4.47 RATIO 2238) LIPID [id number] 00:00:00 Test Item Value Reference Range Interpretation Comments CHOLESTEROL (test code = 2210) 295 MG/DL TRIGLYCERIDES (test code = 2232) 218 MG/DL HDL CHOLESTEROL (test code = 2220) 46 MG/DL CALC LDL CHOL (test code = 2237) 205 MG/DL RISK RATIO LDL/HDL (test code = 4.47 RATIO 2238) HEMOGLOBIN [id number] 00:00:00 Test Item Value Reference Range Interpretation Comments HEMOGLOBIN A1c (test code = 39041) 7.0 % HEMOGLOBIN [id number] 00:00:00 Test Item Value Reference Range Interpretation Comments HEMOGLOBIN A1c (test code = 67282) 7.0 % HEMOGLOBIN [id number] 00:00:00 Test Item Value Reference Range Interpretation Comments HEMOGLOBIN A1c (test code = 55561) 7.0 % [id number] 00:00:00 Test Item Value Reference Range Interpretation Comments TSH, THIRD GENERATION (test code 0.565 UIU/ML = 2821) [id number] 00:00:00 Test Item Value Reference Range Interpretation Comments TSH, THIRD GENERATION (test code 0.565 UIU/ML = 2821) [id number] 00:00:00 Test Item Value Reference Range Interpretation Comments TSH, THIRD GENERATION (test code 0.565 UIU/ML = 2821) COMPREHENSIVE METABOLIC [id number] 00:00:00 Test Item Value Reference Range Interpretation Comments GLUCOSE (test code = 2217) 109 MG/DL BUN (test code = 2208) 25 MG/DL CREATININE (test code = 2214) 0.78 MG/DL eGFR AMER. (test code 98 ML/MIN/1.73 = 12470) eGFR NON- AMER. (test 84 ML/MIN/1.73 code = 74956) CALC BUN/CREAT (test code = 32 RATIO [...] code = 2219) 25 U/L COMPREHENSIVE METABOLIC [id number] 00:00:00 Test Item Value Reference Range Interpretation Comments GLUCOSE (test code = 2217) 109 MG/DL BUN (test code = 2208) 25 MG/DL CREATININE (test code = 2214) 0.78 MG/DL eGFR AMER. (test code 98 ML/MIN/1.73 = 34570) eGFR NON- AMER. (test 84 ML/MIN/1.73 code = 65757) CALC BUN/CREAT (test code = 32 RATIO [...] (test code = 2219) 25 U/L LIPID [id number] 00:00:00 Test Item Value Reference Range Interpretation Comments CHOLESTEROL (test code = 2210) 295 MG/DL TRIGLYCERIDES (test code = 2232) 218 MG/DL HDL CHOLESTEROL (test code = 2220) 46 MG/DL CALC LDL CHOL (test code = 2237) 205 MG/DL RISK RATIO LDL/HDL (test code = 4.47 RATIO 2238) LIPID [id number] 00:00:00 Test Item Value Reference Range Interpretation Comments CHOLESTEROL (test code = 2210) 295 MG/DL TRIGLYCERIDES (test code = 2232) 218 MG/DL HDL CHOLESTEROL (test code = 2220) 46 MG/DL CALC LDL CHOL (test code = 2237) 205 MG/DL RISK RATIO LDL/HDL (test code = 4.47 RATIO 2238) HEMOGLOBIN [id number] 00:00:00 Test Item Value Reference Range Interpretation Comments HEMOGLOBIN A1c (test code = 16756) 7.0 % HEMOGLOBIN [id number] 00:00:00 Test Item Value Reference Range Interpretation Comments HEMOGLOBIN A1c (test code = 71405) 7.0 % HEMOGLOBIN [id number] 00:00:00 Test Item Value Reference Range Interpretation Comments HEMOGLOBIN A1c (test code = 48692) 7.0 % [id number] 00:00:00 Test Item Value Reference Range Interpretation Comments TSH, THIRD GENERATION (test code 0.565 UIU/ML = 2821) [id number] 00:00:00 Test Item Value Reference Range Interpretation Comments TSH, THIRD GENERATION (test code 0.565 UIU/ML = 2821) [id number] 00:00:00 Test Item Value Reference Range Interpretation Comments TSH, THIRD GENERATION (test code 0.565 UIU/ML = 2821) COMPREHENSIVE METABOLIC [id number] 00:00:00 Test Item Value Reference Range Interpretation Comments GLUCOSE (test code = 2217) 109 MG/DL BUN (test code = 2208) 25 MG/DL CREATININE (test code = 2214) 0.78 MG/DL eGFR AMER. (test code 98 ML/MIN/1.73 = 76655) eGFR NON- AMER. (test 84 ML/MIN/1.73 code = 04213) CALC BUN/CREAT (test code = 32 RATIO [...] (test code = 2219) 25 U/L LIPID [id number] 00:00:00 Test Item Value Reference Range Interpretation Comments CHOLESTEROL (test code = 2210) 295 MG/DL TRIGLYCERIDES (test code = 2232) 218 MG/DL HDL CHOLESTEROL (test code = 2220) 46 MG/DL CALC LDL CHOL (test code = 2237) 205 MG/DL RISK RATIO LDL/HDL (test code = 4.47 RATIO 2238) HEMOGLOBIN [id number] 00:00:00 Test Item Value Reference Range Interpretation Comments HEMOGLOBIN A1c (test code = 37523) 7.0 % HEMOGLOBIN [id number] 00:00:00 Test Item Value Reference Range Interpretation Comments HEMOGLOBIN A1c (test code = 77180) 7.0 % [id number] 00:00:00 Test Item Value Reference Range Interpretation Comments TSH, THIRD GENERATION (test code 0.565 UIU/ML = 2821) [id number] 00:00:00 Test Item Value Reference Range Interpretation Comments TSH, THIRD GENERATION (test code 0.565 UIU/ML = 2821) COMPREHENSIVE METABOLIC [id number] 00:00:00 Test Item Value Reference Range Interpretation Comments GLUCOSE (test code = 2217) 109 MG/DL BUN (test code = 2208) 25 MG/DL CREATININE (test code = 2214) 0.78 MG/DL eGFR AMER. (test code 98 ML/MIN/1.73 = 47835) eGFR NON- AMER. (test 84 ML/MIN/1.73 code = 49385) CALC BUN/CREAT (test code = 32 RATIO [...] code = 2219) 25 U/L COMPREHENSIVE METABOLIC [id number] 00:00:00 Test Item Value Reference Range Interpretation Comments GLUCOSE (test code = 2217) 109 MG/DL BUN (test code = 2208) 25 MG/DL CREATININE (test code = 2214) 0.78 MG/DL eGFR AMER. (test code 98 ML/MIN/1.73 = 85678) eGFR NON- AMER. (test 84 ML/MIN/1.73 code = 14701) CALC BUN/CREAT (test code = 32 RATIO [...] (test code = 2219) 25 U/L LIPID [id number] 00:00:00 Test Item Value Reference Range Interpretation Comments CHOLESTEROL (test code = 2210) 295 MG/DL TRIGLYCERIDES (test code = 2232) 218 MG/DL HDL CHOLESTEROL (test code = 2220) 46 MG/DL CALC LDL CHOL (test code = 2237) 205 MG/DL RISK RATIO LDL/HDL (test code = 4.47 RATIO 2238) LIPID [id number] 00:00:00 Test Item Value Reference Range Interpretation Comments CHOLESTEROL (test code = 2210) 295 MG/DL TRIGLYCERIDES (test code = 2232) 218 MG/DL HDL CHOLESTEROL (test code = 2220) 46 MG/DL CALC LDL CHOL (test code = 2237) 205 MG/DL RISK RATIO LDL/HDL (test code = 4.47 RATIO 2238) HEMOGLOBIN [id number] 00:00:00 Test Item Value Reference Range Interpretation Comments HEMOGLOBIN A1c (test code = 71371) 7.0 % HEMOGLOBIN [id number] 00:00:00 Test Item Value Reference Range Interpretation Comments HEMOGLOBIN A1c (test code = 19003) 7.0 % HEMOGLOBIN [id number] 00:00:00 Test Item Value Reference Range Interpretation Comments HEMOGLOBIN A1c (test code = 24080) 7.0 % [id number] 00:00:00 Test Item Value Reference Range Interpretation Comments TSH, THIRD GENERATION (test code 0.379 UIU/ML = 2821) [id number] 00:00:00 Test Item Value Reference Range Interpretation Comments TSH, THIRD GENERATION (test code 0.379 UIU/ML = 2821) [id number] 00:00:00 Test Item Value Reference Range Interpretation Comments TSH, THIRD GENERATION (test code 0.379 UIU/ML = 2821) [id number] 00:00:00 Test Item Value Reference Range Interpretation Comments TSH, THIRD GENERATION (test code 0.379 UIU/ML = 2821) [id number] 00:00:00 Test Item Value Reference Range Interpretation Comments TSH, THIRD GENERATION (test code 0.379 UIU/ML = 2821) [id number] 00:00:00 Test Item Value Reference Range Interpretation Comments TSH, THIRD GENERATION (test code 0.379 UIU/ML = 2821) [id number] 00:00:00 Test Item Value Reference Range Interpretation Comments TSH, THIRD GENERATION (test code 0.379 UIU/ML = 2821) [id number] 00:00:00 Test Item Value Reference Range Interpretation Comments TSH, THIRD GENERATION (test code 0.379 UIU/ML = 2821) [id number] 00:00:00 Test Item Value Reference Range Interpretation Comments TSH, THIRD GENERATION (test code 0.379 UIU/ML = 2821) [id number] 00:00:00 Test Item Value Reference Range Interpretation Comments TSH, THIRD GENERATION (test code 0.379 UIU/ML = 2821) [id number] 00:00:00 Test Item Value Reference Range Interpretation Comments TSH, THIRD GENERATION (test code 0.379 UIU/ML = 2821) CULTURE, [id number] 00:00:00 Test Item Value Reference Range Interpretation Comments CULTURE, URINE (test SPECIMEN NUMBER: code = 07664) [id number] CULTURE, [id number] 00:00:00 Test Item Value Reference Range Interpretation Comments CULTURE, URINE (test SPECIMEN NUMBER: code = 96583) [id number] CULTURE, [id number] 00:00:00 Test Item Value Reference Range Interpretation Comments CULTURE, URINE (test SPECIMEN NUMBER: code = 45373) [id number] CULTURE, [id number] 00:00:00 Test Item Value Reference Range Interpretation Comments CULTURE, URINE (test SPECIMEN NUMBER: code = 66943) [id number] CULTURE, [id number] 00:00:00 Test Item Value Reference Range Interpretation Comments CULTURE, URINE (test SPECIMEN NUMBER: code = 78456) [id number] CULTURE, [id number] 00:00:00 Test Item Value Reference Range Interpretation Comments CULTURE, URINE (test SPECIMEN NUMBER: code = 61375) [id number] CULTURE, [id number] 00:00:00 Test Item Value Reference Range Interpretation Comments CULTURE, URINE (test SPECIMEN NUMBER: code = 13884) [id number] 00:00:00 Test Item Value Reference Range Interpretation Comments LIPASE (test code = 2058) 22 U/L [id number] 00:00:00 Test Item Value Reference Range Interpretation Comments LIPASE (test code = 2058) 22 U/L [id number] 00:00:00 Test Item Value Reference Range Interpretation Comments LIPASE (test code = 2058) 22 U/L COMPREHENSIVE METABOLIC [id number] 00:00:00 Test Item Value Reference Range Interpretation Comments GLUCOSE (test code = 2217) 128 MG/DL BUN (test code = 2208) 26 MG/DL CREATININE (test code = 2214) 0.92 MG/DL eGFR AMER. (test code 81 ML/MIN/1.73 = 35968) eGFR NON- AMER. (test 70 ML/MIN/1.73 code = 39801) CALC BUN/CREAT (test code = 28 RATIO [...] code = 2219) 29 U/L COMPREHENSIVE METABOLIC [id number] 00:00:00 Test Item Value Reference Range Interpretation Comments GLUCOSE (test code = 2217) 128 MG/DL BUN (test code = 2208) 26 MG/DL CREATININE (test code = 2214) 0.92 MG/DL eGFR AMER. (test code 81 ML/MIN/1.73 = 33253) eGFR NON- AMER. (test 70 ML/MIN/1.73 code = 13813) CALC BUN/CREAT (test code = 28 RATIO [...] code = 2219) 29 U/L ACUTE HEPATITIS [id number] 00:00:00 Test Item Value Reference Range Interpretation Comments HEPATITIS A IgM (test code = NON-REACTIVE 03898) HEPATITIS B CORE IgM (test code NON-REACTIVE = 0097) HEPATITIS B SURF AG (test code = NON-REACTIVE 7377) HEPATITIS C ANTIBODY (test code NON-REACTIVE = 6427) INTERPRETATION HEPATITIS A: (NOTE) (test code = 2552) INTERPRETATION HEPATITIS B: (NOTE) (test code = 74496) INTERPRETATION HEPATITIS C: (NOTE) (test code = 20379) ACUTE HEPATITIS [id number] 00:00:00 Test Item Value Reference Range Interpretation Comments HEPATITIS A IgM (test code = NON-REACTIVE 14436) HEPATITIS B CORE IgM (test code NON-REACTIVE = 4644) HEPATITIS B SURF AG (test code = NON-REACTIVE 1529) HEPATITIS C ANTIBODY (test code NON-REACTIVE = 7464) INTERPRETATION HEPATITIS A: (NOTE) (test code = 2552) INTERPRETATION HEPATITIS B: (NOTE) (test code = 49045) INTERPRETATION HEPATITIS C: (NOTE) (test code = 78896) [id number] 00:00:00 Test Item Value Reference Range Interpretation Comments AMYLASE (test code = 2205) 32 U/L [id number] 00:00:00 Test Item Value Reference Range Interpretation Comments AMYLASE (test code = 2205) 32 U/L [id number] 00:00:00 Test Item Value Reference Range Interpretation Comments LIPASE (test code = 2058) 22 U/L [id number] 00:00:00 Test Item Value Reference Range Interpretation Comments LIPASE (test code = 2058) 22 U/L [id number] 00:00:00 Test Item Value Reference Range Interpretation Comments LIPASE (test code = 2058) 22 U/L COMPREHENSIVE METABOLIC [id number] 00:00:00 Test Item Value Reference Range Interpretation Comments GLUCOSE (test code = 2217) 128 MG/DL BUN (test code = 2208) 26 MG/DL CREATININE (test code = 2214) 0.92 MG/DL eGFR AMER. (test code 81 ML/MIN/1.73 = 24799) eGFR NON- AMER. (test 70 ML/MIN/1.73 code = 97433) CALC BUN/CREAT (test code = 28 RATIO [...] code = 2219) 29 U/L COMPREHENSIVE METABOLIC [id number] 00:00:00 Test Item Value Reference Range Interpretation Comments GLUCOSE (test code = 2217) 128 MG/DL BUN (test code = 2208) 26 MG/DL CREATININE (test code = 2214) 0.92 MG/DL eGFR AMER. (test code 81 ML/MIN/1.73 = 14900) eGFR NON- AMER. (test 70 ML/MIN/1.73 code = 26814) CALC BUN/CREAT (test code = 28 RATIO [...] code = 2219) 29 U/L ACUTE HEPATITIS [id number] 00:00:00 Test Item Value Reference Range Interpretation Comments HEPATITIS A IgM (test code = NON-REACTIVE 88588) HEPATITIS B CORE IgM (test code NON-REACTIVE = 4644) HEPATITIS B SURF AG (test code = NON-REACTIVE 0609) HEPATITIS C ANTIBODY (test code NON-REACTIVE = 4675) INTERPRETATION HEPATITIS A: (NOTE) (test code = 2552) INTERPRETATION HEPATITIS B: (NOTE) (test code = 29077) INTERPRETATION HEPATITIS C: (NOTE) (test code = 47307) ACUTE HEPATITIS [id number] 00:00:00 Test Item Value Reference Range Interpretation Comments HEPATITIS A IgM (test code = NON-REACTIVE 27133) HEPATITIS B CORE IgM (test code NON-REACTIVE = 4644) HEPATITIS B SURF AG (test code = NON-REACTIVE 8896) HEPATITIS C ANTIBODY (test code NON-REACTIVE = 2848) INTERPRETATION HEPATITIS A: (NOTE) (test code = 2552) INTERPRETATION HEPATITIS B: (NOTE) (test code = 47445) INTERPRETATION HEPATITIS C: (NOTE) (test code = 55724) [id number] 00:00:00 Test Item Value Reference Range Interpretation Comments AMYLASE (test code = 2205) 32 U/L [id number] 00:00:00 Test Item Value Reference Range Interpretation Comments AMYLASE (test code = 2205) 32 U/L [id number] 00:00:00 Test Item Value Reference Range Interpretation Comments LIPASE (test code = 2058) 22 U/L [id number] 00:00:00 Test Item Value Reference Range Interpretation Comments LIPASE (test code = 2058) 22 U/L [id number] 00:00:00 Test Item Value Reference Range Interpretation Comments LIPASE (test code = 2058) 22 U/L COMPREHENSIVE METABOLIC [id number] 00:00:00 Test Item Value Reference Range Interpretation Comments GLUCOSE (test code = 2217) 128 MG/DL BUN (test code = 2208) 26 MG/DL CREATININE (test code = 2214) 0.92 MG/DL eGFR AMER. (test code 81 ML/MIN/1.73 = 12909) eGFR NON- AMER. (test 70 ML/MIN/1.73 code = 96092) CALC BUN/CREAT (test code = 28 RATIO [...] code = 2219) 29 U/L ACUTE HEPATITIS [id number] 00:00:00 Test Item Value Reference Range Interpretation Comments HEPATITIS A IgM (test code = NON-REACTIVE 84715) HEPATITIS B CORE IgM (test code NON-REACTIVE = 4644) HEPATITIS B SURF AG (test code = NON-REACTIVE 3115) HEPATITIS C ANTIBODY (test code NON-REACTIVE = 2842) INTERPRETATION HEPATITIS A: (NOTE) (test code = 2552) INTERPRETATION HEPATITIS B: (NOTE) (test code = 44641) INTERPRETATION HEPATITIS C: (NOTE) (test code = 40148) [id number] 00:00:00 Test Item Value Reference Range Interpretation Comments AMYLASE (test code = 2205) 32 U/L [id number] 00:00:00 Test Item Value Reference Range Interpretation Comments LIPASE (test code = 2058) 22 U/L [id number] 00:00:00 Test Item Value Reference Range Interpretation Comments LIPASE (test code = 2058) 22 U/L COMPREHENSIVE METABOLIC [id number] 00:00:00 Test Item Value Reference Range Interpretation Comments GLUCOSE (test code = 2217) 128 MG/DL BUN (test code = 2208) 26 MG/DL CREATININE (test code = 2214) 0.92 MG/DL eGFR AMER. (test code 81 ML/MIN/1.73 = 45968) eGFR NON- AMER. (test 70 ML/MIN/1.73 code = 65496) CALC BUN/CREAT (test code = 28 RATIO 223) SODIUM (test code = 2231) [...] code = 2219) 29 U/L COMPREHENSIVE METABOLIC [id number] 00:00:00 Test Item Value Reference Range Interpretation Comments GLUCOSE (test code = 2217) 128 MG/DL BUN (test code = 2208) 26 MG/DL CREATININE (test code = 2214) 0.92 MG/DL eGFR AMER. (test code 81 ML/MIN/1.73 = 08504) eGFR NON- AMER. (test 70 ML/MIN/1.73 code = 32740) CALC BUN/CREAT (test code = 28 RATIO [...] code = 2219) 29 U/L ACUTE HEPATITIS [id number] 00:00:00 Test Item Value Reference Range Interpretation Comments HEPATITIS A IgM (test code = NON-REACTIVE 98419) HEPATITIS B CORE IgM (test code NON-REACTIVE = 4644) HEPATITIS B SURF AG (test code = NON-REACTIVE 2739) HEPATITIS C ANTIBODY (test code NON-REACTIVE = 4675) INTERPRETATION HEPATITIS A: (NOTE) (test code = 2552) INTERPRETATION HEPATITIS B: (NOTE) (test code = 06297) INTERPRETATION HEPATITIS C: (NOTE) (test code = 59150) ACUTE HEPATITIS [id number] 00:00:00 Test Item Value Reference Range Interpretation Comments HEPATITIS A IgM (test code = NON-REACTIVE 64084) HEPATITIS B CORE IgM (test code NON-REACTIVE = 4644) HEPATITIS B SURF AG (test code = NON-REACTIVE 8973) HEPATITIS C ANTIBODY (test code NON-REACTIVE = 4635) INTERPRETATION HEPATITIS A: (NOTE) (test code = 2552) INTERPRETATION HEPATITIS B: (NOTE) (test code = 90560) INTERPRETATION HEPATITIS C: (NOTE) (test code = 23144) [id number] 00:00:00 Test Item Value Reference Range Interpretation Comments AMYLASE (test code = 2205) 32 U/L [id number] 00:00:00 Test Item Value Reference Range Interpretation Comments AMYLASE (test code = 2205) 32 U/L [id number] 00:00:00 Test Item Value Reference Range Interpretation Comments TSH, THIRD GENERATION (test code 4.890 UIU/ML = 2821) [id number] 00:00:00 Test Item Value Reference Range Interpretation Comments TSH, THIRD GENERATION (test code 4.890 UIU/ML = 2821) [id number] 00:00:00 Test Item Value Reference Range Interpretation Comments TSH, THIRD GENERATION (test code 4.890 UIU/ML = 2821) COMPREHENSIVE METABOLIC [id number] 00:00:00 Test Item Value Reference Range Interpretation Comments GLUCOSE (test code = 2217) 121 MG/DL BUN (test code = 2208) 40 MG/DL CREATININE (test code = 2214) 1.48 MG/DL eGFR AMER. (test code 45 ML/MIN/1.73 = 25788) eGFR NON- AMER. (test 39 ML/MIN/1.73 code = 24786) CALC BUN/CREAT (test code = 27 RATIO [...] code = 2219) 20 U/L COMPREHENSIVE METABOLIC [id number] 00:00:00 Test Item Value Reference Range Interpretation Comments GLUCOSE (test code = 2217) 121 MG/DL BUN (test code = 2208) 40 MG/DL CREATININE (test code = 2214) 1.48 MG/DL eGFR AMER. (test code 45 ML/MIN/1.73 = 19562) eGFR NON- AMER. (test 39 ML/MIN/1.73 code = 05881) CALC BUN/CREAT (test code = 27 RATIO [...] ALT (test code = 2219) 20 U/L [id number] 00:00:00 Test Item Value Reference Range Interpretation Comments TSH, THIRD GENERATION (test code 4.890 UIU/ML = 2821) [id number] 00:00:00 Test Item Value Reference Range Interpretation Comments TSH, THIRD GENERATION (test code 4.890 UIU/ML = 2821) [id number] 00:00:00 Test Item Value Reference Range Interpretation Comments TSH, THIRD GENERATION (test code 4.890 UIU/ML = 2821) COMPREHENSIVE METABOLIC [id number] 00:00:00 Test Item Value Reference Range Interpretation Comments GLUCOSE (test code = 2217) 121 MG/DL BUN (test code = 2208) 40 MG/DL CREATININE (test code = 2214) 1.48 MG/DL eGFR AMER. (test code 45 ML/MIN/1.73 = 71604) eGFR NON- AMER. (test 39 ML/MIN/1.73 code = 51663) CALC BUN/CREAT (test code = 27 RATIO [...] code = 2219) 20 U/L COMPREHENSIVE METABOLIC [id number] 00:00:00 Test Item Value Reference Range Interpretation Comments GLUCOSE (test code = 2217) 121 MG/DL BUN (test code = 2208) 40 MG/DL CREATININE (test code = 2214) 1.48 MG/DL eGFR AMER. (test code 45 ML/MIN/1.73 = 35087) eGFR NON- AMER. (test 39 ML/MIN/1.73 code = 81512) CALC BUN/CREAT (test code = 27 RATIO [...] ALT (test code = 2219) 20 U/L [id number] 00:00:00 Test Item Value Reference Range Interpretation Comments TSH, THIRD GENERATION (test code 4.890 UIU/ML = 2821) [id number] 00:00:00 Test Item Value Reference Range Interpretation Comments TSH, THIRD GENERATION (test code 4.890 UIU/ML = 2821) COMPREHENSIVE METABOLIC [id number] 00:00:00 Test Item Value Reference Range Interpretation Comments GLUCOSE (test code = 2217) 121 MG/DL BUN (test code = 2208) 40 MG/DL CREATININE (test code = 2214) 1.48 MG/DL eGFR AMER. (test code 45 ML/MIN/1.73 = 84035) eGFR NON- AMER. (test 39 ML/MIN/1.73 code = 77941) CALC BUN/CREAT (test code = 27 RATIO [...] ALT (test code = 2219) 20 U/L [id number] 00:00:00 Test Item Value Reference Range Interpretation Comments TSH, THIRD GENERATION (test code 4.890 UIU/ML = 2821) [id number] 00:00:00 Test Item Value Reference Range Interpretation Comments TSH, THIRD GENERATION (test code 4.890 UIU/ML = 2821) [id number] 00:00:00 Test Item Value Reference Range Interpretation Comments TSH, THIRD GENERATION (test code 4.890 UIU/ML = 2821) COMPREHENSIVE METABOLIC [id number] 00:00:00 Test Item Value Reference Range Interpretation Comments GLUCOSE (test code = 2217) 121 MG/DL BUN (test code = 2208) 40 MG/DL CREATININE (test code = 2214) 1.48 MG/DL eGFR AMER. (test code 45 ML/MIN/1.73 = 47036) eGFR NON- AMER. (test 39 ML/MIN/1.73 code = 11245) CALC BUN/CREAT (test code = 27 RATIO [...] code = 2219) 20 U/L COMPREHENSIVE METABOLIC [id number] 00:00:00 Test Item Value Reference Range Interpretation Comments GLUCOSE (test code = 2217) 121 MG/DL BUN (test code = 2208) 40 MG/DL CREATININE (test code = 2214) 1.48 MG/DL eGFR AMER. (test code 45 ML/MIN/1.73 = 45629) eGFR NON- AMER. (test 39 ML/MIN/1.73 code = 48564) CALC BUN/CREAT (test code = 27 RATIO [...] (test code = 2219) 20 U/L LIPID [id number] 00:00:00 Test Item Value Reference Range Interpretation Comments CHOLESTEROL (test code = 2210) 261 MG/DL TRIGLYCERIDES (test code = 2232) 165 MG/DL HDL CHOLESTEROL (test code = 2220) 58 MG/DL CALC LDL CHOL (test code = 2237) 170 MG/DL RISK RATIO LDL/HDL (test code = 2.93 RATIO 2238) LIPID [id number] 00:00:00 Test Item Value Reference Range Interpretation Comments CHOLESTEROL (test code = 2210) 261 MG/DL TRIGLYCERIDES (test code = 2232) 165 MG/DL HDL CHOLESTEROL (test code = 2220) 58 MG/DL CALC LDL CHOL (test code = 2237) 170 MG/DL RISK RATIO LDL/HDL (test code = 2.93 RATIO 2238) CBC W/AUTO [id number] 00:00:00 Test Item Value Reference Range Interpretation [...] code = 1015) 378 K/UL CBC W/AUTO [id number] 00:00:00 Test Item Value Reference Range Interpretation [...] code = 1015) 378 K/UL CBC W/AUTO [id number] 00:00:00 Test Item Value Reference Range Interpretation [...] (test code = 1015) 378 K/UL HEMOGLOBIN [id number] 00:00:00 Test Item Value Reference Range Interpretation Comments HEMOGLOBIN A1c (test code = 53463) 6.4 % HEMOGLOBIN [id number] 00:00:00 Test Item Value Reference Range Interpretation Comments HEMOGLOBIN A1c (test code = 59197) 6.4 % HEMOGLOBIN [id number] 00:00:00 Test Item Value Reference Range Interpretation Comments HEMOGLOBIN A1c (test code = 83147) 6.4 % [id number] 00:00:00 Test Item Value Reference Range Interpretation Comments TSH (test code = 2821) 5.290 UIU/ML [id number] 00:00:00 Test Item Value Reference Range Interpretation Comments TSH (test code = 2821) 5.290 UIU/ML [id number] 00:00:00 Test Item Value Reference Range Interpretation Comments TSH (test code = 2821) 5.290 UIU/ML LIPID [id number] 00:00:00 Test Item Value Reference Range Interpretation Comments CHOLESTEROL (test code = 2210) 261 MG/DL TRIGLYCERIDES (test code = 2232) 165 MG/DL HDL CHOLESTEROL (test code = 2220) 58 MG/DL CALC LDL CHOL (test code = 2237) 170 MG/DL RISK RATIO LDL/HDL (test code = 2.93 RATIO 2238) LIPID [id number] 00:00:00 Test Item Value Reference Range Interpretation Comments CHOLESTEROL (test code = 2210) 261 MG/DL TRIGLYCERIDES (test code = 2232) 165 MG/DL HDL CHOLESTEROL (test code = 2220) 58 MG/DL CALC LDL CHOL (test code = 2237) 170 MG/DL RISK RATIO LDL/HDL (test code = 2.93 RATIO 2238) CBC W/AUTO [id number] 00:00:00 Test Item Value Reference Range Interpretation [...] code = 1015) 378 K/UL CBC W/AUTO [id number] 00:00:00 Test Item Value Reference Range Interpretation [...] code = 1015) 378 K/UL CBC W/AUTO [id number] 00:00:00 Test Item Value Reference Range Interpretation [...] (test code = 1015) 378 K/UL HEMOGLOBIN [id number] 00:00:00 Test Item Value Reference Range Interpretation Comments HEMOGLOBIN A1c (test code = 22828) 6.4 % HEMOGLOBIN [id number] 00:00:00 Test Item Value Reference Range Interpretation Comments HEMOGLOBIN A1c (test code = 20716) 6.4 % HEMOGLOBIN [id number] 00:00:00 Test Item Value Reference Range Interpretation Comments HEMOGLOBIN A1c (test code = 00510) 6.4 % [id number] 00:00:00 Test Item Value Reference Range Interpretation Comments TSH (test code = 2821) 5.290 UIU/ML [id number] 00:00:00 Test Item Value Reference Range Interpretation Comments TSH (test code = 2821) 5.290 UIU/ML [id number] 00:00:00 Test Item Value Reference Range Interpretation Comments TSH (test code = 2821) 5.290 UIU/ML LIPID [id number] 00:00:00 Test Item Value Reference Range Interpretation Comments CHOLESTEROL (test code = 2210) 261 MG/DL TRIGLYCERIDES (test code = 2232) 165 MG/DL HDL CHOLESTEROL (test code = 2220) 58 MG/DL CALC LDL CHOL (test code = 2237) 170 MG/DL RISK RATIO LDL/HDL (test code = 2.93 RATIO 2238) CBC W/AUTO [id number] 00:00:00 Test Item Value Reference Range Interpretation [...] code = 1015) 378 K/UL CBC W/AUTO [id number] 00:00:00 Test Item Value Reference Range Interpretation [...] (test code = 1015) 378 K/UL HEMOGLOBIN [id number] 00:00:00 Test Item Value Reference Range Interpretation Comments HEMOGLOBIN A1c (test code = 52741) 6.4 % HEMOGLOBIN [id number] 00:00:00 Test Item Value Reference Range Interpretation Comments HEMOGLOBIN A1c (test code = 41440) 6.4 % [id number] 00:00:00 Test Item Value Reference Range Interpretation Comments TSH (test code = 2821) 5.290 UIU/ML [id number] 00:00:00 Test Item Value Reference Range Interpretation Comments TSH (test code = 2821) 5.290 UIU/ML LIPID [id number] 00:00:00 Test Item Value Reference Range Interpretation Comments CHOLESTEROL (test code = 2210) 261 MG/DL TRIGLYCERIDES (test code = 2232) 165 MG/DL HDL CHOLESTEROL (test code = 2220) 58 MG/DL CALC LDL CHOL (test code = 2237) 170 MG/DL RISK RATIO LDL/HDL (test code = 2.93 RATIO 2238) LIPID [id number] 00:00:00 Test Item Value Reference Range Interpretation Comments CHOLESTEROL (test code = 2210) 261 MG/DL TRIGLYCERIDES (test code = 2232) 165 MG/DL HDL CHOLESTEROL (test code = 2220) 58 MG/DL CALC LDL CHOL (test code = 2237) 170 MG/DL RISK RATIO LDL/HDL (test code = 2.93 RATIO 2238) CBC W/AUTO [id number] 00:00:00 Test Item Value Reference Range Interpretation [...] code = 1015) 378 K/UL CBC W/AUTO [id number] 00:00:00 Test Item Value Reference Range Interpretation [...] code = 1015) 378 K/UL CBC W/AUTO [id number] 00:00:00 Test Item Value Reference Range Interpretation [...] (test code = 1015) 378 K/UL HEMOGLOBIN [id number] 00:00:00 Test Item Value Reference Range Interpretation Comments HEMOGLOBIN A1c (test code = 36599) 6.4 % HEMOGLOBIN [id number] 00:00:00 Test Item Value Reference Range Interpretation Comments HEMOGLOBIN A1c (test code = 07716) 6.4 % HEMOGLOBIN [id number] 00:00:00 Test Item Value Reference Range Interpretation Comments HEMOGLOBIN A1c (test code = 27972) 6.4 % [id number] 00:00:00 Test Item Value Reference Range Interpretation Comments TSH (test code = 2821) 5.290 UIU/ML [id number] 00:00:00 Test Item Value Reference Range Interpretation Comments TSH (test code = 2821) 5.290 UIU/ML [id number] 00:00:00 Test Item Value Reference Range Interpretation [...] code = 2821) 1.030 UIU/ML COMPREHENSIVE METABOLIC [id number] 00:00:00 Test Item Value Reference Range Interpretation Comments GLUCOSE (test code = 2217) 106 MG/DL BUN (test code = 2208) 23 MG/DL CREATININE (test code = 2214) 0.66 MG/DL eGFR AMER. (test code 114 ML/MIN/1.73 = 39002) eGFR NON- AMER. (test 99 ML/MIN/1.73 code = 38502) CALC BUN/CREAT (test code = 35 RATIO [...] code = 2219) 31 U/L COMPREHENSIVE METABOLIC [id number] 00:00:00 Test Item Value Reference Range Interpretation Comments GLUCOSE (test code = 2217) 106 MG/DL BUN (test code = 2208) 23 MG/DL CREATININE (test code = 2214) 0.66 MG/DL eGFR AMER. (test code 114 ML/MIN/1.73 = 34708) eGFR NON- AMER. (test 99 ML/MIN/1.73 code = 21411) CALC BUN/CREAT (test code = 35 RATIO [...] code = 2821) 0.335 UIU/ML COMPREHENSIVE METABOLIC [id number] 00:00:00 Test Item Value Reference Range Interpretation Comments GLUCOSE (test code = 2217) 106 MG/DL BUN (test code = 2208) 23 MG/DL CREATININE (test code = 2214) 0.66 MG/DL eGFR AMER. (test code 114 ML/MIN/1.73 = 08281) eGFR NON- AMER. (test 99 ML/MIN/1.73 code = 62826) CALC BUN/CREAT (test code = 35 RATIO [...] code = 2219) 31 U/L COMPREHENSIVE METABOLIC [id number] 00:00:00 Test Item Value Reference Range Interpretation Comments GLUCOSE (test code = 2217) 106 MG/DL BUN (test code = 2208) 23 MG/DL CREATININE (test code = 2214) 0.66 MG/DL eGFR AMER. (test code 114 ML/MIN/1.73 = 64053) eGFR NON- AMER. (test 99 ML/MIN/1.73 code = 11120) CALC BUN/CREAT (test code = 35 RATIO [...] code = 2821) 0.335 UIU/ML COMPREHENSIVE METABOLIC [id number] 00:00:00 Test Item Value Reference Range Interpretation Comments GLUCOSE (test code = 2217) 106 MG/DL BUN (test code = 2208) 23 MG/DL CREATININE (test code = 2214) 0.66 MG/DL eGFR AMER. (test code 114 ML/MIN/1.73 = 29155) eGFR NON- AMER. (test 99 ML/MIN/1.73 code = 34917) CALC BUN/CREAT (test code = 35 RATIO [...] code = 2821) 0.335 UIU/ML COMPREHENSIVE METABOLIC [id number] 00:00:00 Test Item Value Reference Range Interpretation Comments GLUCOSE (test code = 2217) 106 MG/DL BUN (test code = 2208) 23 MG/DL CREATININE (test code = 2214) 0.66 MG/DL eGFR AMER. (test code 114 ML/MIN/1.73 = 96285) eGFR NON- AMER. (test 99 ML/MIN/1.73 code = 10024) CALC BUN/CREAT (test code = 35 RATIO [...] code = 2219) 31 U/L COMPREHENSIVE METABOLIC [id number] 00:00:00 Test Item Value Reference Range Interpretation Comments GLUCOSE (test code = 2217) 106 MG/DL BUN (test code = 2208) 23 MG/DL CREATININE (test code = 2214) 0.66 MG/DL eGFR AMER. (test code 114 ML/MIN/1.73 = 64748) eGFR NON- AMER. (test 99 ML/MIN/1.73 code = 89570) CALC BUN/CREAT (test code = 35 RATIO [...] code = 2821) 0.335 UIU/ML COMPREHENSIVE METABOLIC [id number] 00:00:00 Test Item Value Reference Range Interpretation Comments GLUCOSE (test code = 2217) 103 MG/DL BUN (test code = 2208) 15 MG/DL CREATININE (test code = 2214) 0.77 MG/DL eGFR AMER. (test code 101 ML/MIN/1.73 = 32764) eGFR NON- AMER. (test 87 ML/MIN/1.73 code = 26102) CALC BUN/CREAT (test code = 19 RATIO [...] code = 2219) 24 U/L COMPREHENSIVE METABOLIC [id number] 00:00:00 Test Item Value Reference Range Interpretation Comments GLUCOSE (test code = 2217) 103 MG/DL BUN (test code = 2208) 15 MG/DL CREATININE (test code = 2214) 0.77 MG/DL eGFR AMER. (test code 101 ML/MIN/1.73 = 95042) eGFR NON- AMER. (test 87 ML/MIN/1.73 code = 97018) CALC BUN/CREAT (test code = 19 RATIO [...] code = 2821) 0.424 UIU/ML COMPREHENSIVE METABOLIC [id number] 00:00:00 Test Item Value Reference Range Interpretation Comments GLUCOSE (test code = 2217) 103 MG/DL BUN (test code = 2208) 15 MG/DL CREATININE (test code = 2214) 0.77 MG/DL eGFR AMER. (test code 101 ML/MIN/1.73 = 96237) eGFR NON- AMER. (test 87 ML/MIN/1.73 code = 69178) CALC BUN/CREAT (test code = 19 RATIO [...] code = 2219) 24 U/L COMPREHENSIVE METABOLIC [id number] 00:00:00 Test Item Value Reference Range Interpretation Comments GLUCOSE (test code = 2217) 103 MG/DL BUN (test code = 2208) 15 MG/DL CREATININE (test code = 2214) 0.77 MG/DL eGFR AMER. (test code 101 ML/MIN/1.73 = 06720) eGFR NON- AMER. (test 87 ML/MIN/1.73 code = 87383) CALC BUN/CREAT (test code = 19 RATIO [...] code = 2821) 0.424 UIU/ML COMPREHENSIVE METABOLIC [id number] 00:00:00 Test Item Value Reference Range Interpretation Comments GLUCOSE (test code = 2217) 103 MG/DL BUN (test code = 2208) 15 MG/DL CREATININE (test code = 2214) 0.77 MG/DL eGFR AMER. (test code 101 ML/MIN/1.73 = 31196) eGFR NON- AMER. (test 87 ML/MIN/1.73 code = 51651) CALC BUN/CREAT (test code = 19 RATIO [...] code = 2821) 0.424 UIU/ML COMPREHENSIVE METABOLIC [id number] 00:00:00 Test Item Value Reference Range Interpretation Comments GLUCOSE (test code = 2217) 103 MG/DL BUN (test code = 2208) 15 MG/DL CREATININE (test code = 2214) 0.77 MG/DL eGFR AMER. (test code 101 ML/MIN/1.73 = 25042) eGFR NON- AMER. (test 87 ML/MIN/1.73 code = 38465) CALC BUN/CREAT (test code = 19 RATIO [...] code = 2219) 24 U/L COMPREHENSIVE METABOLIC [id number] 00:00:00 Test Item Value Reference Range Interpretation Comments GLUCOSE (test code = 2217) 103 MG/DL BUN (test code = 2208) 15 MG/DL CREATININE (test code = 2214) 0.77 MG/DL eGFR AMER. (test code 101 ML/MIN/1.73 = 40632) eGFR NON- AMER. (test 87 ML/MIN/1.73 code = 33275) CALC BUN/CREAT (test code = 19 RATIO [...] (test code = 2821) 0.424 UIU/ML CULTURE, [id number] 00:00:00 Test Item Value Reference Range Interpretation Comments CULTURE, URINE (test SPECIMEN NUMBER: code = 73555) [id number] CULTURE, [id number] 00:00:00 Test Item Value Reference Range Interpretation Comments CULTURE, URINE (test SPECIMEN NUMBER: code = 53672) [id number] CULTURE, [id number] 00:00:00 Test Item Value Reference Range Interpretation Comments CULTURE, URINE (test SPECIMEN NUMBER: code = 61556) [id number] CULTURE, [id number] 00:00:00 Test Item Value Reference Range Interpretation Comments CULTURE, URINE (test SPECIMEN NUMBER: code = 88728) [id number] CULTURE, [id number] 00:00:00 Test Item Value Reference Range Interpretation Comments CULTURE, URINE (test SPECIMEN NUMBER: code = 55091) [id number] CULTURE, [id number] 00:00:00 Test Item Value Reference Range Interpretation Comments CULTURE, URINE (test SPECIMEN NUMBER: code = 11061) [id number] CULTURE, [id number] 00:00:00 Test Item Value Reference Range Interpretation Comments CULTURE, URINE (test SPECIMEN NUMBER: code = 36487) [id number] CULTURE, [id number] 00:00:00 Test Item Value Reference Range Interpretation Comments CULTURE, URINE (test SPECIMEN NUMBER: code = 10886) [id number] CULTURE, [id number] 00:00:00 Test Item Value Reference Range Interpretation Comments CULTURE, URINE (test SPECIMEN NUMBER: code = 02932) [id number] CULTURE, [id number] 00:00:00 Test Item Value Reference Range Interpretation Comments CULTURE, URINE (test SPECIMEN NUMBER: code = 01219) [id number] CULTURE, [id number] 00:00:00 Test Item Value Reference Range Interpretation Comments CULTURE, URINE (test SPECIMEN NUMBER: code = 12223) [id number] CULTURE, [id number] 00:00:00 Test Item Value Reference Range Interpretation Comments CULTURE, URINE (test SPECIMEN NUMBER: code = 54350) [id number] CULTURE, [id number] 00:00:00 Test Item Value Reference Range Interpretation Comments CULTURE, URINE (test SPECIMEN NUMBER: code = 17187) [id number] CULTURE, [id number] 00:00:00 Test Item Value Reference Range Interpretation Comments CULTURE, URINE (test SPECIMEN NUMBER: code = 94110) [id number]
[2023-01-28] MEDS ORDERED: HALOPERIDOL LACT 5 MG/ML INJ ONE (06:20)
[2023-01-28] MEDS ORDERED: KETOROLAC 30 MG/ML INJ ONE (06:20)
[2023-01-28] MEDS ORDERED: HYDRALAZINE HCL 20 MG/ML VIAL ONE (06:20)
[2023-01-28] MEDS ORDERED: NA CHLORIDE 0.9% 50 ML ONE (06:20)
[2023-01-28] MEDS ORDERED: ONDANSETRON 4 MG/2 ML VIAL ONE (06:20)
[2023-01-28 06:33] LABS: Albumin 3.8 g/dL (3.4-5.0); Bilirubin Total 0.4 mg/dL (0.2-1.0); Potassium 3.6 mEq/L (3.5-5.1); Protein, Total 8.4 g/dL (6.4-8.2)
[2023-01-28] MEDS ORDERED: NA CHLORIDE 0.9% 1,000 ML ONE (06:35)
[2023-01-28] MEDS ORDERED: cloNIDine HCL 0.1 MG TAB ONE (06:35)
[2023-01-28 07:44] LABS: Absolute Lymphocytes (CBC) 1.5 K/uL (0.7-4.9); Hematocrit 42.6 % (36.0-45.0); MCV 88.9 fL (80-100); MPV 6.5 fL (7.6-11.3); Platelets 397 thou/uL (152-406)
[2023-01-28] MEDS ORDERED: METOCLOPRAMIDE 10 MG/2mL INJ ONE (07:50)
--- NOTE | 2023-01-28 08:35 | RAD REPORT ---
EXAM DESCRIPTION: CT - Abdomen Pelvis Wo Contrast - 01/28/2023 7:51 am CLINICAL HISTORY: ABD PAIN COMPARISON: Abdomen Pelvis Wo Contrast dated 08/05/2022; Abdomen Pelvis W Contrast dated 3; Abdomen Pelvis W Contrast dated 11/22/2021; Abdomen Pelvis Wo Contrast dated 08/26/2021 TECHNIQUE: Thin cut axial CT imaging of the abdomen and pelvis was performed without IV contrast. Mu ltiplanar reformats were generated and reviewed. All CT scans are performed using dose optimization technique as appropriate and may include automated exposure control or mA/KV adjustment according to patient size. FINDINGS: No suspicious findings in the lung bases. The liver stable small foci of hypoattenuation within the liver, and difficult to characterize, but s uggestive of small cysts. Spleen, adrenal glands, and pancreas show no suspicious findings. Gallbladd er and biliary tree are also without suspicious finding. Symmetric renal contour, without suspicious parenchymal findings within limits of noncontrast techniq ue. No evidence of radiopaque calculi or hydroureteronephrosis. Mild hiatal hernia. No dilated bowel loops or bowel wall thickening. No free air, free fluid or infla mmatory stranding. No hernia, mass or bulky lymphadenopathy. The urinary bladder is without significa nt finding. No suspicious bony findings. IMPRESSION: No acute intra-abdominal process.
[2023-01-28] MEDS ORDERED: MORPHINE 4 MG/ML SYR ONE (09:00)
[2023-01-28 09:08] LABS: Specific Gravity 1.014 (1.005-1.030); Urine Bacteria <20 /HPF (<20); Urine Bilirubin NEGATIVE (Negative); Urine Blood Negative (Negative); Urine Clarity Extremely Turbid (Clear); Urine Color Light-Yellow (Yellow); Urine Glucose TRACE (Negative); Urine Mucus Slight /HPF (None Seen); Urine Protein TRACE (Negative); Urine Urobilinogen Normal (Normal); Urine pH 7.5 (5.0-7.0)
[2023-01-28] MEDS ORDERED: ONDANSETRON 4 MG (ODT) TAB ONE (09:52)
--- NOTE | 2023-01-28 09:54 | EDPHYS ---
Physician Documentation [facility] Name: Jaimie Amanda Age: 62 yrs Sex: Female : 1960 Arrival Date: 01/28/2023 Time: 05:47 Bed 7 Private MD: ED Physician Villa Byrd HPI: 01/28 05:49 This 62 yrs old Female presents to ER via Unassigned with complaints of mid sp4 abdominal pain. . 05:51 PMH - Allergies: 12/24 23:53 hydrochlorothiazide PMHx: Anxiety; Anxiety; Anxiety; sp4 Chronic Abdominal Pain; Hypertensive disorder; Hypothyroidism; low NA; NIDDM PSHx: Thyroidectomy; . 06:05 Patient is 61-year-old female presents with EMS with mid abdominal pain and nausea. sp4 Patient has history of chronic abdominal pains. Patient has history of hypertension, anxiety disorder, depression, hyperlipidemia, hypothyroidism, diabetes mellitus type 2, tobacco use disorder, seizure disorder. History of chronic abdominal pains as well. Last admission the record was 09/25/2022 for hypertensive urgency acute hyponatremia acute metabolic encephalopathy secondary to hyponatremia. Patient's medications include Synthroid 137 mcg daily, Effexor 100 mg 3 times daily, losartan 50 mg daily, Trileptal twice a day, famotidine 20 mg p.o. twice daily, metformin twice daily, Coreg daily. . 06:16 CT review report EXAM DESCRIPTION: 08/05/2022 9:53 am Abdomen / Pelvis FINDINGS: No sp4 suspicious findings in the lung bases. The liver, spleen, and pancreas show no suspicious findings. Subcentimeter hypoattenuating liver foci, may represent small cysts, not well characterized. Gallbladder and biliary tree are also without suspicious finding. Symmetric renal contour, without suspicious parenchymal findings within limits of noncontrast technique. No evidence of radiopaque calculi or hydroureteronephrosis. No dilated bowel loops or bowel wall thickening. No free air, free fluid or inflammatory stranding. No hernia, mass or bulky lymphadenopathy. The urinary bladder is without significant finding. No suspicious bony findings. IMPRESSION: No acute intra-abdominal process.. Historical: - Allergies: 07:20 No Known Allergies; hb - PMHx: 06:07 Anxiety; Chronic Abdominal Pain; Hypertensive disorder; Hypothyroidism; low NA; NIDDM; sp4 - Immunization history:: Adult Immunizations up to date. - Social history:: Smoking status: Patient reports the use of cigarette tobacco products, smokes one pack cigarettes per day. - Family history:: not pertinent. ROS: 06:07 Constitutional: Negative for fever, chills, and weight loss, Abdomen/GI: Negative for sp4 abdominal pain, nausea, vomiting, diarrhea, and constipation, positive for abdominal pain and nausea. 06:07 All other systems are negative, Exam: 06:07 Constitutional: This is a well developed, well nourished patient who is awake, alert, sp4 and in no acute distress. Head/Face: Normocephalic, atraumatic. Eyes: Pupils equal round and reactive to light, extra-ocular motions intact. Lids and lashes normal. Conjunctiva and sclera are not injected. Cornea within normal limits. Periorbital areas with no swelling, redness, or edema. ENT: Nares patent. No nasal discharge, no septal abnormalities noted. Tympanic membranes are normal and external auditory canals are clear. Oropharynx with no redness, swelling, or masses, exudates, or evidence of obstruction, uvula midline. Mucous membranes moist. Neck: Trachea midline, no thyromegaly or masses palpated, and no cervical lymphadenopathy. Supple, full range of motion without nuchal rigidity, or vertebral point tenderness. Chest/axilla: Normal chest wall appearance and motion. Nontender with no deformity. No lesions are appreciated. Cardiovascular: Regular rate and rhythm with a normal S1 and S2. No gallops, murmurs, or rubs. Normal PMI, no JVD. No pulse deficits. Respiratory: Lungs have equal breath sounds bilaterally, clear to auscultation and percussion. No rales, rhonchi or wheezes noted. No increased work of breathing, no retractions or nasal flaring. Abdomen/GI: Soft, non-tender, with normal bowel sounds. No distension or tympany. No guarding or rebound. No evidence of tenderness throughout. Back: No spinal tenderness. No costovertebral tenderness. Skin: Warm, dry with normal turgor. Normal color with no rashes, no lesions, and no evidence of cellulitis. MS/ Extremity: Pulses equal, no cyanosis. Neurovascular intact. Full, normal range of motion. Neuro: Awake and alert, GCS 15, oriented to person, place, time, and situation. Cranial nerves II-XII grossly intact. Motor strength 5/5 in all extremities. Sensory grossly intact. Psych: Awake, alert, with orientation to person, place and time. Behavior, mood, and affect are within normal limits Vital Signs: 05:47 BP 138 / 104; Pulse 58; Resp 20; Temp 97.9(O); Pulse Ox 99% ; Weight 68.04 kg; Height 5 nw1 ft. 7 in. ; Pain 8/10; 07:42 BP 216 / 99; Pulse 89; Resp 15; Pulse Ox 99% on R/A; hb 08:18 BP 216 / 104; Pulse 93; Resp 22; Pulse Ox 98% on R/A; hb 10:08 BP 199 / 109; Pulse 97; Resp 19; Pulse Ox 98% on R/A; ap3 05:47 Body Mass Index 23.49 (68.04 kg, 170.18 cm) nw1 05:47 Pain Scale: Adult nw1 [place] Coma Score: 06:34 Eye Response: spontaneous(4). Motor Response: obeys commands(6). Verbal Response: nw1 confused(4). Total: 14. MDM: 05:53 Patient medically screened. sp4 07:06 Differential Diagnosis altered mental status, sepsis, flu. Data reviewed: vital signs, sp4 nurses notes, EMS record, old medical records, lab test result(s), radiologic studies, CT scan. Transition of care: After a detail discussion of the patient's case, care is transferred to Villa Byrd MD. 07:28 ED course: Pt signed out to me by Dr. Solis, plan was to obtain ct abd/pelvis, rn hydrate, and reeval. Pt with known chronic hyponatremia, here for 3 days of nausea/vomiting/abd pain. no fever. No blood in stool/emesis. . 07:38 ED course: Hospital is out of phenergan, patient refuses reglan. Already got haldol and rn 8mg zofran. . 09:27 ED course: No acute findings and CT abdomen pelvis. Patient with chronic hyponatremia, rn still nauseous, no vomiting, offered observation in hospital for more medication, patient declines. Patient is alert and oriented and understands risks of leaving without further treatment or clear diagnosis.. 09:50 Consideration of Admission/Observation Escalation of care including architecture internship/observation considered. Patient refuses admission. I considered the following discharge prescriptions or medication management in the emergency department Medications were administered in the Emergency Department. See MAR. Counseling: I had a detailed discussion with the patient and/or guardian regarding the historical points, exam findings, and any diagnostic results supporting the discharge/admit diagnosis, lab results, radiology results, the need for further work-up and treatment in the hospital. Response to treatment: the patient's symptoms have mildly improved after treatment, and as a result, I will admit patient. Refusal of service: The patient/guardian displays adequate decision making capability and despite a detailed discussion of alternatives, benefits, risks, and consequences refuses: Admission to the hospital for further work-up and treatment. ED course: Spoke with patient again, told her blood pressure still elevated, still nauseous, sodium 120, recommended admission for further symptomatic treatment and electrolyte correction, patient states absolutely not staying, understands risks of leaving including seizure//revisit, cannot give me exact reason why she does not want to stay but states wants to leave. Patient is alert and oriented and understands risks. Will discharge home per her wishes. 09:52 Care significantly affected by the following chronic conditions: Hypertension, rn hyponatremia. 01/28 05:52 Order name: CBC with Diff; Complete Time: 07:46 sp4 01/28 05:52 Order name: CMP; Complete Time: 07:06 sp4 01/28 05:52 Order name: Lipase; Complete Time: 07:06 sp4 01/28 08:13 Order name: Urinalysis w/ reflexes; Complete Time: 09:09 rn 01/28 07:52 Order name: Abdomen ; Complete Time: 08:36 EDMS 01/28 05:52 Order name: IV Saline Lock; Complete Time: 06:07 sp4 01/28 05:52 Order name: Labs collected and sent; Complete Time: 06:07 sp4 01/28 06:30 Order name: Labs - recollect needed: lav- hemolyzed; Complete Time: 07:37 mc5 Administered Medications: 06:15 Drug: Haloperidol IVP 2.5 mg/50 mL 5 mg IVP once; 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 Route: IVP; Site: right antecubital; 10:17 Follow up: Response: No adverse reaction; Anxiety unchanged ap3 06:15 Drug: TORadol - Ketorolac IVP 30 mg IVP once Route: IVP; Site: right antecubital; nw1 10:16 Follow up: Response: No adverse reaction; Pain is unchanged, physician notified ap3 06:15 Drug: Ondansetron IVP 8 mg IVP once; over 2 minutes Route: IVP; Site: right antecubital;nw1 10:17 Follow up: Response: No adverse reaction ap3 06:15 Drug: hydrALAZINE IVP 20 mg IVP once Route: IVP; Site: right antecubital; nw1 10:16 Follow up: Response: No adverse reaction ap3 06:25 Drug: cloNIDine PO 0.2 mg PO once Route: PO; nw1 10:16 Follow up: Response: No adverse reaction ap3 06:25 Drug: NS 0.9% IV 1000 ml IV at 125 ml/hr continuous Route: IV; Rate: 125 ml/hr; Site: nw1 right antecubital; 10:16 Follow up: IV Status: IV infiltrated; IV Intake: 400ml ap3 07:28 CANCELLED (Duplicate Order): ondansetron 4 mg IVP once; over 2 minutes rn 07:35 Not Given (Duplicate Order): rlfmabicuylo02.5 mg IVP once rn 07:38 Not Given (Patient Refused): rwgmystrncllwb23 mg IVP once; over 1 to 2 minutes rn 09:12 Drug: morphine IVP or IV 4 mg IVP once over 4 mins {Note: given IM per MD OLIVARES at ap3 bedisde.} Route: IVP; Infused Over: 4 mins; Site: Other; 10:16 Follow up: Response: No adverse reaction; Pain is decreased; RASS: Alert and Calm (0) ap3 09:39 Drug: Ondansetron PO 4 mg PO once Route: PO; ap3 10:16 Follow up: Response: No adverse reaction ap3 Disposition Summary: 01/28/23 09:54 Discharge Ordered Notes: Location: Home rn Problem: chronic rn Symptoms: have improved rn Condition: Stable rn Diagnosis - Hypo-osmolality and hyponatremia rn - Nausea with vomiting, unspecified rn - Abdominal pain, unspecified rn Followup: rn - With: Private Physician - When: As needed - Reason: Recheck today's complaints, Re-evaluation by your physician Discharge Instructions: - Discharge Summary Sheet rn - Abdominal Pain, Adult rn - Hyponatremia rn - Nausea and Vomiting, Adult rn Forms: - Medication Reconciliation Form rn - Thank You Letter rn - Antibiotic corporate associate attorney - Prescription Opioid Use rn - Patient Portal Instructions rn - Leadership Thank You Letter rn Prescriptions: - ondansetron 4 mg Oral Tablet,disintegrating - take 1 tablet ORAL route every 8 hours As needed; 10 tablet; Refills: 0, rn Product Selection Permitted Signatures: Dispatcher [employer] EDMS Villa Byrd MD MD rn Baxter, Heather RN RN Elisa Gutierrez RN RN [email or web address] Remy Solis MD MD sp4 Debi Adams 5 Linda Logan, RN RN nw1 Corrections: (The following items were deleted from the chart) 06:08 06:07 PSHx: Thyroidectomy; sp4 sp4 07:21 06:07 Allergies: hydrochlorothiazide [Inactive]; sp4 hb 07:28 07:28 Ondansetron IVP 4 mg IVP once; over 2 minutes ordered. rn rn 07:52 06:13 Abdomen Pelvis W Con+CT.RAD.BRZ ordered. EDMS EDMS
--- NOTE | 2023-01-28 09:54 | ER ---
Nurse's Notes [facility] Name: Jaimie Amanda Age: 62 yrs Sex: Female : 1960 Arrival Date: 01/28/2023 Time: 05:47 Bed 7 Private MD: Diagnosis: Hypo-osmolality and hyponatremia;Nausea with vomiting, unspecified;Abdominal pain, unspecified Presentation: 01/28 05:47 Chief complaint: EMS states: Abdominal pain/nausea as of 01/26/23. Coronavirus nw1 screen: Client denies travel out of the [place] in the last 14 days. At this time, the client does not indicate any symptoms associated with coronavirus-19. 05:47 Method Of Arrival: EMS: [facility] nw1 05:47 Ebola Screen: Patient negative for fever greater than or equal to 101.5 degrees nw1 Fahrenheit, and additional compatible Ebola Virus Disease symptoms Patient denies exposure to infectious person. Patient denies travel to an Ebola-affected area in the 21 days before illness onset. Initial Sepsis Screen: Does the patient meet any 2 criteria? No. Patient's initial sepsis screen is negative. Does the patient have a suspected source of infection? No. Patient's initial sepsis screen is negative. Risk Assessment: Do you want to hurt yourself or someone else? Patient reports no desire to harm self or others. Onset of symptoms was January 26, 2023. 05:47 Acuity: ZHEN 3 nw1 Triage Assessment: 05:47 General: Appears uncomfortable, Behavior is cooperative, anxious. Pain: Complains of nw1 pain in abdomen Pain does not radiate. Pain currently is 8 out of 10 on a pain scale. Quality of pain is described as aching, Pain began 2-3 days ago. Is continuous, chronic. Cardiovascular: Heart tones present Capillary refill < 3 seconds HTN. Pulses are all present. Rhythm is sinus rhythm Chest pain is denied. Respiratory: Airway is patent Trachea midline Respiratory effort is even, unlabored, Respiratory pattern is regular, symmetrical, Breath sounds are clear bilaterally. GI: Reports lower abdominal pain, upper abdominal pain, nausea, Pain is 8 out of 10 on a pain scale. tolerance of fluids, tolerance of food, Patient currently denies bloody stool, constipation, indigestion, vomiting. : No signs and/or symptoms were reported regarding the genitourinary system. Derm: No signs and/or symptoms reported regarding the dermatologic system. Musculoskeletal: No signs and/or symptoms reported regarding the musculoskeletal system. Historical: - Allergies: 07:20 No Known Allergies; hb - PMHx: 06:07 Anxiety; Chronic Abdominal Pain; Hypertensive disorder; Hypothyroidism; low NA; NIDDM; sp4 - Immunization history:: Adult Immunizations up to date. - Social history:: Smoking status: Patient reports the use of cigarette tobacco products, smokes one pack cigarettes per day. - Family history:: not pertinent. Screenin:34 [facility] ED Fall Risk Assessment (Adult) History of falling in the last 3 months, nw1 including since admission No falls in past 3 months (0 pts) Confusion or Disorientation No (0 pts) Intoxicated or Sedated No (0 pts) Impaired Gait No (0 pts). Abuse screen: Denies threats or abuse. Denies injuries from another. Nutritional screening: No deficits noted. Tuberculosis screening: No symptoms or risk factors identified. Assessment: 06:34 Reassessment: for focal and general assessment see triage documentation. nw1 07:02 Reassessment: x3 IV's attempted and unsuccessful after 20 to the right AC infiltrated. nw1 Attempted x1 US IV, pt unable to tolerate procedure well therefore stopped attempt of US IV in left brachial. Pt without IV. Will really during report during change of shift. Call light at bedside. 07:18 Reassessment: Mother Tiffani [phone] cell. hb 07:46 Reassessment: Pt to CT via stretcher with Kristie Splunk Developer. hb 08:03 Reassessment: Pt returned from CT. hb Vital Signs: 05:47 BP 138 / 104; Pulse 58; Resp 20; Temp 97.9(O); Pulse Ox 99% ; Weight 68.04 kg; Height 5 nw1 ft. 7 in. ; Pain 8/10; 07:42 BP 216 / 99; Pulse 89; Resp 15; Pulse Ox 99% on R/A; hb 08:18 BP 216 / 104; Pulse 93; Resp 22; Pulse Ox 98% on R/A; hb 10:08 BP 199 / 109; Pulse 97; Resp 19; Pulse Ox 98% on R/A; ap3 05:47 Body Mass Index 23.49 (68.04 kg, 170.18 cm) nw1 05:47 Pain Scale: Adult nw1 [place] Coma Score: 06:34 Eye Response: spontaneous(4). Motor Response: obeys commands(6). Verbal Response: nw1 confused(4). Total: 14. ED Course: 05:47 Arm band placed on right wrist. nw1 05:47 Patient has correct armband on for positive identification. Placed in gown. Bed in low nw1 position. Call light in reach. Side rails up X2. Provided Education on: POC. 05:48 Patient arrived in ED. la4 05:49 Remy Solis MD is Attending Physician. sp4 06:00 No provider procedures requiring assistance completed. Inserted saline lock: 20 gauge nw1 in right antecubital area, using aseptic technique. Blood collected. 06:03 Linda Logan RN is Primary Nurse. nw1 06:08 Lipase Sent. nw1 06:08 CMP Sent. nw1 06:08 CBC with Diff Sent. nw1 06:29 Triage completed. nw1 07:06 Attending Physician role handed off by Remy Solis MD rn 07:06 Villa Byrd MD is Attending Physician. rn 07:34 Inserted saline lock: 22 gauge in left antecubital area, using aseptic technique. Blood hb collected. 07:52 Abdomen In Process Unspecified. EDMS 08:49 IV discontinued, bleeding controlled, Pressure dressing applied. ap3 Administered Medications: 06:15 Drug: Haloperidol IVP 2.5 mg/50 mL 5 mg IVP once; Place patient on a ginning operator nw1 Route: IVP; Site: right antecubital; 10:17 Follow up: Response: No adverse reaction; Anxiety unchanged ap3 06:15 Drug: TORadol - Ketorolac IVP 30 mg IVP once Route: IVP; Site: right antecubital; nw1 10:16 Follow up: Response: No adverse reaction; Pain is unchanged, physician notified ap3 06:15 Drug: Ondansetron IVP 8 mg IVP once; over 2 minutes Route: IVP; Site: right antecubital;nw1 10:17 Follow up: Response: No adverse reaction ap3 06:15 Drug: hydrALAZINE IVP 20 mg IVP once Route: IVP; Site: right antecubital; nw1 10:16 Follow up: Response: No adverse reaction ap3 06:25 Drug: cloNIDine PO 0.2 mg PO once Route: PO; nw1 10:16 Follow up: Response: No adverse reaction ap3 06:25 Drug: NS 0.9% IV 1000 ml IV at 125 ml/hr continuous Route: IV; Rate: 125 ml/hr; Site: nw1 right antecubital; 10:16 Follow up: IV Status: IV infiltrated; IV Intake: 400ml ap3 07:28 CANCELLED (Duplicate Order): ondansetron 4 mg IVP once; over 2 minutes rn 07:35 Not Given (Duplicate Order): [id number] mg IVP once rn 07:38 Not Given (Patient Refused): [id number] mg IVP once; over 1 to 2 minutes rn 09:12 Drug: morphine IVP or IV 4 mg IVP once over 4 mins {Note: given IM per MD OLIVARES at ap3 bedisde.} Route: IVP; Infused Over: 4 mins; Site: Other; 10:16 Follow up: Response: No adverse reaction; Pain is decreased; RASS: Alert and Calm (0) ap3 09:39 Drug: Ondansetron PO 4 mg PO once Route: PO; ap3 10:16 Follow up: Response: No adverse reaction ap3 Medication: 06:34 VIS not applicable for this client. nw1 Intake: 10:16 IV: 400ml; Total: 400ml. ap3 Outcome: 09:54 Discharge ordered by MD. rn 10:15 Discharged to home with family, ap3 10:15 Condition: stable 10:15 Discharge instructions given to patient, Instructed on discharge instructions, follow up and referral plans. medication usage, Demonstrated understanding of instructions, follow-up care, medications, Prescriptions given X 1, 10:24 Patient left the ED. Signatures: Dispatcher [employer] EDMS Villa Byrd MD MD rn Baxter, Heather, RN RN Elisa Gutierrez RN RN ap3 Remy Solis MD MD sp4 Andrews, La'Rea, RN RN laLinda Bansal RN RN nw1 Corrections: (The following items were deleted from the chart) 06:08 06:07 PSHx: Thyroidectomy; sp4 sp4 07:19 07:18 Reassessment: Mother Tiffani [phone] cell hb hb 07:21 06:07 Allergies: hydrochlorothiazide [Inactive]; sp4 hb
[2023-01-28 10:53] VITALS: TEMP 97.9
[2023-01-28 10:55] VITALS: O2SAT 98
[2023-01-28 10:56] VITALS: BP 199/109
== END 2023-01-28 10:24 | disposition home or self-care (01) ==
LOC: ER 05:47
DX: R10.9 Unspecified abdominal pain (principal); E87.1 Hypo-osmolality and hyponatremia; R11.2 Nausea with vomiting, unspecified; F17.210 Nicotine dependence, cigarettes, uncomplicated
CPT/HCPCS: 85025; 81001; 36415; 83690; 80053; 74176; 99284; Q0162; J0360; J1630; J2405; J7030; J2765

== ENCOUNTER → 2023-03-28 | Emergency (ER) | payer OTHER ==
--- NOTE | 2023-03-28 11:25 | ER ---
Nurse's Notes [facility] Name: Jaimie Amanda Age: 62 yrs Sex: Female : 1960 Arrival Date: 03/28/2023 Time: 10:19 Bed External Waiting Private MD: Diagnosis: Presentation: 03/28 10:19 Chief complaint: EMS states: Abdominal pain x 2 days. VS WNL. hb 10:19 Method Of Arrival: EMS: [facility] hb Assessment: 10:20 General: Pt brought in by EMS, left ED from EMS stretcher. Refused triage, vitals, said hb "I forgot my phone, I have to go." Pt ambulated to exit with steady gait in no apparent distress.. ED Course: 10:20 Patient arrived in ED. eb 10:21 Dior Garcia PA-C is PHCP. sb4 10:21 Sebastian Devlin MD is Attending Physician. sb4 Administered Medications: No medications were administered Outcome: 10: Eloped before seeing physician hb 11:24 Patient left the ED. hb Signatures: Gail Espinoza, RN RN Nikkie Caceres Dior Garcia PA-C PA-C sb4
== END ==
LOC: ER 10:19
DX: Z02.9 Encounter for administrative examinations, unspecified (principal); R10.9 Unspecified abdominal pain
CPT/HCPCS: 99282

== ENCOUNTER 2023-08-27 13:05 | Emergency (ER) | payer OTHER ==
--- NOTE | 2023-08-27 14:00 | RAD REPORT ---
EXAM DESCRIPTION: RAD - Chest Single View - 08/27/2023 1:55 pm CLINICAL HISTORY: upper abdomen pain Chest pain. COMPARISON: Chest Single View dated 07/29/2022; Chest Single View dated 07/28/2022; Chest Single View dated 07/01/2022; Chest Single View dated 06/30/2022 FINDINGS: Portable technique limits examination quality. The lungs are mildly emphysematous but grossly clear. The heart is normal in size. No displaced fract ures. IMPRESSION: Mild COPD.
[2023-08-27 14:04] LABS: Absolute Lymphocytes (CBC) 1.5 K/uL (0.7-4.9); Absolute Monocytes 0.6 K/uL (0.1-1.3); Absolute Neutrophil 8.4 K/uL (1.8-8.0); Basophils % 0.4 % (0-1.3); Eosinophils % 0.2 % (0-4.4); Hematocrit 44.3 % (36.0-45.0); Hemoglobin 15.3 g/dL (12.0-15.0); Lymphocytes % 14.4 % (15.3-44.8); MCHC 34.5 g/dL (32.0-36.0); MCV 89.9 fL (80-100); MPV 6.6 fL (7.6-11.3); Monocytes % 6.1 % (3.3-12.3); Neutrophils % 78.9 % (41.7-73.7); Nucleated Red Blood Cells % 0.1 % (0-0); Platelets 365 thou/uL (152-406); RBC Red Blood Cell Count 4.93 M/uL (3.86-4.86); Red Cell Distribution Width 14.6 % (12.1-15.2)
[2023-08-27 14:17] LABS: ALT/SGPT 34 U/L (13-56); AST/SGOT 24 U/L (15-37); Albumin 4.4 g/dL (3.4-5.0); Albumin/Globulin Ratio 0.9 (1.1-1.8); Alkaline Phosphatase 107 U/L (45-117); Anion Gap 13.6 mEq/L (5.0-15.0); BUN Blood Urea Nitrogen 10 mg/dL (7-18); Bicarbonate 24 mEq/L (21-32); Bilirubin Total 0.4 mg/dL (0.2-1.0); Globulin 4.9 g/dL (2.3-3.5); Glomerular Filtration Rate 71 ml/min (=/>90); Glucose Level 128 mg/dL (74-106); Lipase 19 U/L (13-75); Magnesium 1.8 mg/dL (1.6-2.4); Potassium 3.6 mEq/L (3.5-5.1); Protein, Total 9.3 g/dL (6.4-8.2); Sodium Level 124 mEq/L (136-145); Troponin High Sensitivity 3.3 pg/mL (<58.9)
[2023-08-27 14:21] LABS: Bilirubin Direct < 0.2 mg/dL (0-0.2); Bilirubin Indirect, Calculated 0.2 mg/dL (0.2-0.8)
[2023-08-27] MEDS ORDERED: NA CHLORIDE 0.9% 1,000 ML ONE (14:31)
--- NOTE | 2023-08-27 14:43 | RAD REPORT ---
EXAM DESCRIPTION: CTAbdomen Pelvis W Contrast - 08/27/2023 2:35 pm CLINICAL HISTORY: Abdominal pain. ABD PAIN COMPARISON: Abdomen Pelvis W Contrast dated 07/28/2023; Abdomen Pelvis W Contrast dated 06/20/2023 ; Abdomen Pelvis W Contrast dated 05/04/2022; Abdomen Pelvis W Contrast dated 11/22/2021 TECHNIQUE: Biphasic CT imaging of the abdomen and pelvis was performed with 100 ml non-ionic IV cont rast. All CT scans are performed using dose optimization technique as appropriate and may include automated exposure control or mA/KV adjustment according to patient size. FINDINGS: The lung bases are clear. The liver demonstrates small cysts. The spleen, pancreas, adrenal glands and kidneys are within aakash l limits. There is diffuse fluid distention of the colon. Multiple thickened small bowel loops also present hardik trally. The appendix is normal. No evidence of significant lymphadenopathy. No suspicious bony findings. IMPRESSION: There is thickening of small intestine present in the central abdomen which may represen t enteritis or inflammatory bowel disease. Diffuse fluid distention of the colon suggests diarrheal state.
[2023-08-27] MEDS ORDERED: ONDANSETRON 4 MG/2 ML VIAL ONE (14:48)
[2023-08-27] MEDS ORDERED: FAMOTIDINE 20 MG/2 ML VIAL IV ONE (14:48)
[2023-08-27] MEDS ORDERED: MORPHINE 4 MG/ML SYR ONE (14:48)
--- NOTE | 2023-08-27 15:46 | EDPHYS ---
Physician Documentation [facility] Name: Jaimie Amanda Age: 62 yrs Sex: Female : 1960 Arrival Date: 08/27/2023 Time: 13:05 Bed 3 Private MD: ED Physician Zo Zapata HPI: 08/26 13:15 This 62 yrs old Female presents to ER via Unassigned with complaints of Abdominal Pain. cp 13:15 The patient presents with abdominal pain in the right upper quadrant. Onset: The cp symptoms/episode began/occurred 3 day(s) ago. Associated signs and symptoms: Pertinent positives: nausea and vomiting. 13:15 The symptoms are described as achy. Severity of pain: in the emergency department the cp pain is unchanged despite home interventions. Historical: - Allergies: 13:54 hydrochlorothiazide; ko1 - PMHx: 13:54 Anxiety; Chronic Abdominal Pain; Hypertensive disorder; Hypothyroidism; low NA; NIDDM; ko1 - Immunization history:: Adult Immunizations unknown. - Infectious Disease History:: Denies. - Social history:: Smoking status: Patient reports the use of cigarette tobacco products, smokes one pack cigarettes per day. ROS: 13:20 Constitutional: Negative for body aches, chills, fever, cp 13:20 Eyes: Negative for injury, pain, redness, and discharge, cp 13:20 ENT: Negative for drainage from ear(s), ear pain, sore throat, difficulty swallowing, difficulty handling secretions, 13:20 Cardiovascular: Negative for chest pain, edema, palpitations, 13:20 Respiratory: Negative for cough, shortness of breath, wheezing, 13:20 Abdomen/GI: Positive for abdominal pain, nausea and vomiting, Negative for diarrhea, constipation, 13:20 Neuro: Negative for altered mental status, headache, syncope, 13:20 All other systems are negative, Exam: 13:25 Constitutional: The patient appears in no acute distress, alert, awake, cp non-diaphoretic, non-toxic, well developed, well nourished, uncomfortable, 13:25 Head/Face: Normocephalic, atraumatic. cp 13:25 Eyes: Periorbital structures: appear normal, Conjunctiva: normal, no exudate, no injection, Sclera: no appreciated abnormality, Lids and lashes: appear normal, bilaterally, 13:25 ENT: External ear(s): are unremarkable, Nose: is normal, Mouth: Lips: moist, Oral mucosa: pink and intact, moist, Posterior pharynx: Airway: no evidence of obstruction, patent, 13:25 Chest/axilla: Inspection: normal, 13:25 Cardiovascular: Rate: normal, Rhythm: regular, 13:25 Respiratory: the patient does not display signs of respiratory distress, Respirations: normal, no use of accessory muscles, no retractions, labored breathing, is not present, Breath sounds: are clear throughout, no decreased breath sounds, no stridor, no wheezing, 13:25 Abdomen/GI: Inspection: distension, Bowel sounds: active, all quadrants, Palpation: soft, in all quadrants, moderate abdominal tenderness, in the right upper quadrant and right lower quadrant, rebound tenderness, is not appreciated, involuntary guarding, is not appreciated, 13:25 Back: CVA tenderness, is absent, 13:25 Neuro: Orientation: to person, place \T\ time. Mentation: able to follow commands, Motor: moves all fours, no focal deficits, Sensation: no obvious gross deficits, 14:08 ECG was reviewed by the Attending Physician. Vital Signs: 13:15 BP 150 / 83; Pulse 84; Resp 18; Temp 98; Pulse Ox 97% on R/A; ko1 13:15 BP 148 / 78; Pulse 80; Resp 16; Pulse Ox 98% ; ko1 MDM: 13:13 Patient medically screened. 15:45 Data reviewed: vital signs, nurses notes, lab test result(s), EKG, radiologic studies, CT scan, plain films. 15:45 I considered the following discharge prescriptions or medication management in the emergency department Medications were administered in the Emergency Department. See MAR. Independent interpretation of the following test(s) in the Emergency Department EKG: See my EKG interpretation above. Counseling: I had a detailed discussion with the patient and/or guardian regarding the historical points, exam findings, and any diagnostic results supporting the discharge/admit diagnosis, lab results, radiology results, the need for outpatient follow up, a family practitioner, to return to the emergency department if symptoms worsen or persist or if there are any questions or concerns that arise at home. Response to treatment: the patient's symptoms have mildly improved after treatment, and as a result, I will discharge patient. 08/26 13:14 Order name: Basic Metabolic Panel; Complete Time: 14:25 cp 08/26 14:25 Interpretation: Normal except: NA 124; CL 90; GLUC 128; GFR 71; CA 10.5. cp 08/26 13:14 Order name: CBC with Diff; Complete Time: 14:19 cp 08/26 14:20 Interpretation: Normal except: RBC 4.93; HGB 15.3; MPV 6.6; GWEN% 78.9; LYM% 14.4; NEUT cp A 8.4. 08/26 13:14 Order name: LFT's; Complete Time: 14:25 cp 08/26 15:08 Interpretation: Normal except: TP 9.3; GLOB 4.9; A/G 0.9. cp 08/26 13:14 Order name: Magnesium; Complete Time: 14:25 cp 08/26 13:14 Order name: Troponin HS; Complete Time: 14:25 cp 08/26 13:14 Order name: Lipase; Complete Time: 14:25 cp 08/26 13:14 Order name: XRAY Chest (1 view); Complete Time: 14:19 cp 08/26 14:24 Interpretation: Report review. cp 08/26 14:26 Order name: CT Abd/Pelvis - IV Contrast Only; Complete Time: 15:07 cp 08/26 15:08 Interpretation: Report reviewed. cp 08/26 13:14 Order name: Cardiac monitoring; Complete Time: 13:38 cp 08/26 13:14 Order name: EKG - Nurse/Tech; Complete Time: 14:06 cp 08/26 13:14 Order name: IV Saline Lock; Complete Time: 13:51 cp 08/26 13:14 Order name: Labs collected and sent; Complete Time: 13:51 cp 08/26 13:14 Order name: O2 Per Protocol; Complete Time: 13:38 cp 08/26 13:14 Order name: O2 Sat Monitoring; Complete Time: 13:38 cp 08/26 15:16 Order name: PO challenge; Complete Time: 15:45 cp EC:08 Rate is 87 beats/min. Rhythm is regular. WV interval is normal. QRS interval is normal. cp QT interval is normal. T waves are Inverted in lead aVR. Interpreted by me. Reviewed by me. Administered Medications: 14:35 Drug: NS 0.9% IV 1000 ml IV at 250 ml/hr Per protocol Route: IV; Rate: 250 ml/hr; Site: ko1 left antecubital; 15:59 Follow up: Response: No adverse reaction; IV Intake: 250ml ko1 16:00 Follow up: IV Status: Order to discontinue infusion ko1 14:47 Drug: Ondansetron IVP 4 mg IVP once; over 2 minutes Route: IVP; Site: left antecubital; ko1 15:03 Follow up: Response: No adverse reaction ko1 14:47 Drug: Famotidine IVP 20 mg IVP once; dilute with 10 mL 0.9% NaCl; give over 2 minutes ko1 Route: IVP; Site: left antecubital; 15:03 Follow up: Response: No adverse reaction ko1 14:47 Drug: morphine IVP or IV 4 mg IVP once over 4 mins Route: IVP; Infused Over: 4 mins; ko1 Site: left antecubital; 15:03 Follow up: Response: No adverse reaction ko1 Disposition Summary: 08/27/23 15:46 Discharge Ordered Notes: Location: Home cp Problem: new cp Symptoms: have improved cp Condition: Fair cp Diagnosis - Abdominal pain, unspecified cp - Noninfective gastroenteritis and colitis, unspecified cp - Hypo-osmolality and hyponatremia cp Followup: cp - With: Private Physician - When: 1 - 2 days - Reason: Recheck today's complaints Discharge Instructions: - Discharge Summary Sheet cp - Abdominal Pain, Adult cp - Food Choices to Help Relieve Diarrhea, Adult cp - Hyponatremia cp Forms: - Medication Reconciliation Form cp - Antibiotic Education cp - Prescription Opioid Use cp - Patient Portal Instructions cp - Leadership Thank You Letter cp Signatures: Dispatcher [employer] Diego Michelle PA PA cp Vy Cortez, RN RN ko1
--- NOTE | 2023-08-27 15:46 | ER ---
Nurse's Notes [facility] Name: Jaimie Amanda Age: 62 yrs Sex: Female : 1960 Arrival Date: 08/27/2023 Time: 13:05 Bed 3 Private MD: Diagnosis: Abdominal pain, unspecified;Noninfective gastroenteritis and colitis, unspecified;Hypo-osmolality and hyponatremia Presentation: 08/26 13:15 Chief complaint: EMS states: patient called for lower abdominal pain that's been going ko1 on for several days, patient states its better now. Coronavirus screen: At this time, the client does not indicate any symptoms associated with coronavirus-19. Ebola Screen: No symptoms or risks identified at this time. Initial Sepsis Screen: Does the patient meet any 2 criteria? No. Patient's initial sepsis screen is negative. Does the patient have a suspected source of infection? No. Patient's initial sepsis screen is negative. Risk Assessment: Do you want to hurt yourself or someone else? Patient reports no desire to harm self or others. Onset of symptoms is unknown. 13:15 Method Of Arrival: EMS: [facility] ko1 13:15 Acuity: ZHEN 3 ko1 Triage Assessment: 13:54 General: Appears in no apparent distress. Behavior is cooperative, appropriate for age, ko1 anxious. Pain: Complains of pain in right lower quadrant and left lower quadrant. Historical: - Allergies: 13:54 hydrochlorothiazide; ko1 - PMHx: 13:54 Anxiety; Chronic Abdominal Pain; Hypertensive disorder; Hypothyroidism; low NA; NIDDM; ko1 - Immunization history:: Adult Immunizations unknown. - Infectious Disease History:: Denies. - Social history:: Smoking status: Patient reports the use of cigarette tobacco products, smokes one pack cigarettes per day. Screenin:[address] [facility] ED Fall Risk Assessment (Adult) History of falling in the last 3 months, ko1 including since admission Yes- single mechanical fall (1 pt) Confusion or Disorientation No (0 pts) Intoxicated or Sedated No (0 pts) Impaired Gait No (0 pts) Mobility Assist Device Used No (0 pt) Altered Elimination No (0 pt) Score/Fall Risk Level 0 - 2 = Low Risk Oriented to surroundings, Maintained a safe environment, Educated pt \T\ family on fall prevention, incl call for assistance when getting out of bed, Assessed \T\ reinforced patient's understanding of fall precautions, Provided non-skid footwear, Hourly rounding (assess needs \T\ fall precautionary measures) done, Used ambulatory aids as needed (educated on \T\ assisted with), Used gait belt as appropriate. Abuse screen: Denies threats or abuse. Denies injuries from another. Nutritional screening: No deficits noted. Tuberculosis screening: No symptoms or risk factors identified. Assessment: 13:15 Neuro: No deficits noted. Cardiovascular: No deficits noted. Respiratory: No deficits ko1 noted. GI: Reports lower abdominal pain, diarrhea, nausea, vomiting. : No deficits noted. EENT: No deficits noted. Derm: No deficits noted. Musculoskeletal: No deficits noted. Vital Signs: 13:15 BP 150 / 83; Pulse 84; Resp 18; Temp 98; Pulse Ox 97% on R/A; ko1 13:15 BP 148 / 78; Pulse 80; Resp 16; Pulse Ox 98% ; ko1 ED Course: 13:11 Patient arrived in ED. ko1 13:13 Diego Ang PA is PHCP. cp 13:13 Zo Zapata MD is Attending Physician. cp 13:15 No provider procedures requiring assistance completed. ko1 13:15 Patient has correct armband on for positive identification. Allergy band placed. Fall ko1 risk band placed. Bed in low position. Call light in reach. Side rails up X2. Provided Education on: labs. Client placed on continuous cardiac and pulse oximetry monitoring. NIBP monitoring applied. property assessment monitor on. Door closed. Noise minimized. Lights dimmed. Warm blanket given. Pillow given. Assisted to bathroom. 13:50 Initial lab(s) drawn, by me, sent to lab. EKG done, by ED staff, reviewed by Diego Ang ko1 PA. Inserted saline lock: 22 gauge in left antecubital area, using aseptic technique. Blood collected. 13:51 Vy Cortez, RN is Primary Nurse. ko1 13:51 Lipase Sent. ko1 13:51 Basic Metabolic Panel Sent. ko1 13:51 CBC with Diff Sent. ko1 13:51 LFT's Sent. ko1 13:51 Magnesium Sent. ko1 13:51 Troponin HS Sent. ko1 13:54 Triage completed. ko1 13:54 Arm band placed on right wrist. Patient placed in an exam room, on a stretcher, on ko1 telemetry monitor, on pulse oximetry, Patient notified of wait time. 13:57 XRAY Chest (1 view) In Process Unspecified. EDMS 14:37 CT Abd/Pelvis - IV Contrast Only In Process Unspecified. EDMS 15:58 IV discontinued, intact, bleeding controlled, No redness/swelling at site. Pressure ko1 dressing applied. Administered Medications: 14:35 Drug: NS 0.9% IV 1000 ml IV at 250 ml/hr Per protocol Route: IV; Rate: 250 ml/hr; Site: ko1 left antecubital; 15:59 Follow up: Response: No adverse reaction; IV Intake: 250ml ko1 16:00 Follow up: IV Status: Order to discontinue infusion ko1 14:47 Drug: Ondansetron IVP 4 mg IVP once; over 2 minutes Route: IVP; Site: left antecubital; ko1 15:03 Follow up: Response: No adverse reaction ko1 14:47 Drug: Famotidine IVP 20 mg IVP once; dilute with 10 mL 0.9% NaCl; give over 2 minutes ko1 Route: IVP; Site: left antecubital; 15:03 Follow up: Response: No adverse reaction ko1 14:47 Drug: morphine IVP or IV 4 mg IVP once over 4 mins Route: IVP; Infused Over: 4 mins; ko1 Site: left antecubital; 15:03 Follow up: Response: No adverse reaction ko1 Medication: 13:15 VIS not applicable for this client. ko1 Intake: 15:59 IV: 250ml; Total: 250ml. ko1 Outcome: 15:46 Discharge ordered by . cp 15:58 Discharged to home ambulatory, with family, ko1 15:58 Condition: stable 15:58 Discharge instructions given to patient, family, Instructed on discharge instructions, follow up and referral plans. Demonstrated understanding of instructions, follow-up care, 16:01 Patient left the ED. ko1 Signatures: Dispatcher [employer] EDMS Diego Ang PA PA cp Oliver, Kathy, RN RN ko1
[2023-08-27 16:19] VITALS: BP 148/78; TEMP 98; O2SAT 98
--- NOTE | 2023-08-30 13:34 | EKG ---
Test Date: 2023-08-27 Test Time: 14:02:48 Assemblyman Or Woman: ARELY MEASUREMENT RESULTS: Intervals: Rate: 87 CA: 168 QRSD: 86 QT: 372 QTc: 447 [place]: P: 57 CA: 168 QRS: 81 T: 74 INTERPRETIVE STATEMENTS: Normal sinus rhythm Normal ECG Compared to ECG 11/23/2022 13:21:55 Sinus tachycardia no longer present ST (T wave) deviation no longer present Electronically Signed On 08-30-23 13:28:27 CDT by Brian Booker
== END 2023-08-27 16:01 | disposition home or self-care (01) ==
LOC: ER 13:05
DX: K52.9 Noninfective gastroenteritis and colitis, unspecified (principal); E87.1 Hypo-osmolality and hyponatremia
CPT/HCPCS: 96361; 93005; 85025; 80048; 36415; 83735; 80076; 84484; 83690; 74177; 71045; 96375; 96374; 99285; Q9967; J2405; J7030

== ENCOUNTER 2023-12-18 16:09 | Emergency (ER) | payer OTHER ==
[2023-12-18] MEDS ORDERED: droPERidol 5 MG/2 ML VIAL ONE (16:24)
[2023-12-18] MEDS ORDERED: NA CHLORIDE 0.9% 1,000 ML ONE (16:24)
[2023-12-18] MEDS ORDERED: DIPHENHYDRAMINE 50 MG/ML VIAL ONE (16:24)
[2023-12-18 16:40] LABS: Absolute Lymphocytes (CBC) 2.8 K/uL (0.7-4.9); Absolute Monocytes 0.8 K/uL (0.1-1.3); Absolute Neutrophil 5.6 K/uL (1.8-8.0); Basophils % 0.5 % (0-1.3); Eosinophils % 0.1 % (0-4.4); Hematocrit 41.6 % (36.0-45.0); Hemoglobin 14.5 g/dL (12.0-15.0); Lymphocytes % 30.6 % (15.3-44.8); MCH 31.7 pg (27.0-35.0); MCHC 34.8 g/dL (32.0-36.0); MPV 7.2 fL (7.6-11.3); Monocytes % 8.8 % (3.3-12.3); Platelets 303 thou/uL (152-406); RBC Red Blood Cell Count 4.57 M/uL (3.86-4.86); Red Cell Distribution Width 13.9 % (12.1-15.2)
[2023-12-18 16:56] LABS: Albumin 3.9 g/dL (3.4-5.0); Anion Gap 12.7 mEq/L (5.0-15.0); Bilirubin Total 0.3 mg/dL (0.2-1.0); Potassium 3.7 mEq/L (3.5-5.1); Protein, Total 7.9 g/dL (6.4-8.2)
[2023-12-18 16:57] LABS: Specific Gravity 1.026 (1.005-1.030); Urine Bacteria None Seen /HPF (<20); Urine Bilirubin NEGATIVE (Negative); Urine Blood Negative (Negative); Urine Clarity Extremely Turbid (Clear); Urine Color Yellow (Yellow); Urine Crystals Unidentified Few /HPF (None Seen); Urine Culture Reflex Order NOT NEEDED; Urine Glucose NEGATIVE (Negative); Urine Ketones TRACE (Negative); Urine Micro Reflex YN NO BILL MICROSCOPIC; Urine Mucus 2+ /HPF (None Seen); Urine Nitrite NEGATIVE (Negative); Urine Protein TRACE (Negative); Urine Urobilinogen 1+ (Normal); Urine WBC <5 /HPF (<5); Urine WBC Clump Rare /HPF (None Seen); Urine Yeast (Budding) Trace /HPF (None Seen); Urine pH 6.5 (5.0-7.0)
[2023-12-18] MEDS ORDERED: MORPHINE 4 MG/ML SYR ONE (17:32)
--- NOTE | 2023-12-18 17:33 | EDPHYS ---
Physician Documentation [facility] Name: Jaimie Amanda Age: 63 yrs Sex: Female : 1960 Arrival Date: 12/18/2023 Time: 16:09 Bed 18 Private MD: ED Physician Sebastian Devlin HPI: 12/17 16:45 This 63 yrs old Female presents to ER via Ambulatory with complaints of ec2 Abdominal Pain. 16:45 Patient arrives today for evaluation of nausea, vomiting, diarrhea. Patient reports has ec2 been having symptoms ongoing For 2 days. Patient reports history of chronic abdominal pain. No urinary complaints.. Historical: - Allergies: 16:19 hydrochlorothiazide; tm6 16:19 Toradol; tm6 - PMHx: 16:19 Anxiety; Chronic Abdominal Pain; Hypertensive disorder; Hypothyroidism; low NA; NIDDM; tm6 - PSHx: 16:19 None; tm6 - Immunization history:: Client reports receiving the 2nd dose of the Covid vaccine. - Infectious Disease History:: Denies. - Social history:: Smoking status: Patient reports the use of cigarette tobacco products, smokes one-half pack cigarettes per day, Reported history of juuling and/or vaping. Patient/guardian denies using alcohol. ROS: 16:45 Constitutional: as per hpi ec2 Exam: 16:45 Constitutional: GEN: NAD Head: atraumatic Eyes: EOMI Ears: External ears are ec2 normal. CV: Tachycardia LUNGS: no respiratory distress ABD: non-distended, soft, generally tender, guarding, not rigid SKIN: no evidence of rashes MSK: no evidence of traumaThe Vital Signs: 16:17 BP 152 / 92; Pulse 104; Resp 17; Temp 98.6(O); Pulse Ox 96% on R/A; MAP 106 mmHg; tm6 Weight 68.04 kg; Height 5 ft. 7 in. ; Pain 10/10; 16:53 BP 163 / 79; Pulse 83; ec2 17:37 BP 160 / 76; Pulse 82; Resp 16; Pulse Ox 100% on R/A; mb9 16:17 Body Mass Index 23.49 (68.04 kg, 170.18 cm) tm6 16:17 Pain Scale: Adult tm6 MDM: 16:45 Data reviewed: vital signs. ED course: Patient examination moreArrives today for ec2 abdominal pain patient arrives today for evaluation of abdominal pain. Examination remarkable for slightly tachycardic individual is generally tender without guarding or rigidity. Will obtain lab work, urine studies. . 16:58 ED course: Metabolic profile shows slight hyponatremia with a sodium of 127. Urine is ec2 noninfectious appearing. Patient with chronic hyponatremia. . 17:32 Patient medically screened. ec2 12/17 16:19 Order name: CBC with Diff; Complete Time: 16:53 ec2 12/17 16:19 Order name: CMP; Complete Time: 16:58 ec2 12/17 16:19 Order name: UAM; Complete Time: 16:58 ec2 12/17 16:19 Order name: IV Saline Lock; Complete Time: 16:37 ec2 12/17 16:19 Order name: Labs collected and sent; Complete Time: 16:37 ec2 Administered Medications: 16:35 Drug: Droperidol IVP 2.5 mg IVP once Route: IVP; Site: right hand; mb9 17:06 Follow up: Response: No adverse reaction mb9 16:37 Drug: NS 0.9% IV 1000 ml IV at 1 bolus Per protocol; to be given as a bolus over 60 mb9 minutes Route: IV; Rate: 1 bolus; Site: right hand; 17:37 Follow up: Response: No adverse reaction; IV Status: Completed infusion mb9 16:37 Drug: diphenhydrAMINE IVP 50 mg IVP once Route: IVP; Site: right hand; mb9 17:06 Follow up: Response: No adverse reaction mb9 17:37 Drug: morphine IVP or IV 4 mg IVP once over 4 mins Route: IVP; Infused Over: 4 mins; mb9 Site: right hand; 17:49 Follow up: Response: No adverse reaction mb9 Disposition Summary: 12/18/23 17:32 Discharge Ordered Notes: Location: Home ec2 Condition: Stable ec2 Diagnosis - Chronic Abdominal Pain ec2 - Hypo-osmolality and hyponatremia ec2 Followup: ec2 - With: Private Physician - When: - Reason: Re-evaluation by your physician Discharge Instructions: - Discharge Summary Sheet ec2 - Abdominal Pain, Adult, [id number] ec2 Forms: - Medication Reconciliation Form ec2 - Antibiotic Education ec2 - Prescription Opioid Use ec2 - Patient Portal Instructions ec2 - Leadership Thank You Letter ec2 Signatures: Dispatcher [employer] Radha Grimes RN RN mb9 Sebastian Devlin MD MD ec2 Matt Solis RN RN tm6
--- NOTE | 2023-12-18 17:33 | ER ---
Nurse's Notes [facility] Name: Jaimie Amanda Age: 63 yrs Sex: Female : 1960 Arrival Date: 12/18/2023 Time: 16:09 Bed 18 Private MD: Diagnosis: Chronic Abdominal Pain;Hypo-osmolality and hyponatremia Presentation: 12/17 16:17 Chief complaint: Patient states: yesterday afternoon my abdomen started hurting. In the tm6 middle, toward the bottom. Feels like someone is kicking me. No n/v. Has had diarrhea. Coronavirus screen: Client denies travel out of the [place] in the last 14 days. Ebola Screen: Patient negative for fever greater than or equal to 101.5 degrees Fahrenheit, and additional compatible Ebola Virus Disease symptoms Patient denies exposure to infectious person. Patient denies travel to an Ebola-affected area in the 21 days before illness onset. No symptoms or risks identified at this time. Initial Sepsis Screen: Does the patient meet any 2 criteria? No. Patient's initial sepsis screen is negative. Does the patient have a suspected source of infection? No. Patient's initial sepsis screen is negative. Risk Assessment: Do you want to hurt yourself or someone else? Patient reports no desire to harm self or others. Onset of symptoms was December 17, 2023. 16:17 Method Of Arrival: Ambulatory tm6 16:17 Acuity: ZHEN 3 tm6 Triage Assessment: 16:19 General: Appears uncomfortable, Behavior is calm, cooperative. Pain: Complains of pain tm6 in umbilical area and suprapubic area Pain currently is 10 out of 10 on a pain scale. Pain began 1 day ago. EENT: No signs and/or symptoms were reported regarding the EENT system. Neuro: Level of Consciousness is awake, alert, obeys commands, Oriented to person, place, situation. Neuro: Oriented to person, place, time, situation. Cardiovascular: Patient's skin is warm and dry. Respiratory: Airway is patent Respiratory effort is even, unlabored, Respiratory pattern is regular, symmetrical. GI: Abdomen is flat, non-distended, Reports lower abdominal pain, upper abdominal pain, diarrhea. : No signs and/or symptoms were reported regarding the genitourinary system. Derm: No signs and/or symptoms reported regarding the dermatologic system. Musculoskeletal: No signs and/or symptoms reported regarding the musculoskeletal system. Historical: - Allergies: 16:19 hydrochlorothiazide; tm6 16:19 Toradol; tm6 - PMHx: 16:19 Anxiety; Chronic Abdominal Pain; Hypertensive disorder; Hypothyroidism; low NA; NIDDM; tm6 - PSHx: 16:19 None; tm6 - Immunization history:: Client reports receiving the 2nd dose of the Covid vaccine. - Infectious Disease History:: Denies. - Social history:: Smoking status: Patient reports the use of cigarette tobacco products, smokes one-half pack cigarettes per day, Reported history of juuling and/or vaping. Patient/guardian denies using alcohol. Screenin:38 [facility] ED Fall Risk Assessment (Adult) History of falling in the last 3 months, mb9 including since admission No falls in past 3 months (0 pts) Confusion or Disorientation No (0 pts) Intoxicated or Sedated No (0 pts) Impaired Gait No (0 pts) Mobility Assist Device Used No (0 pt) Altered Elimination No (0 pt) Score/Fall Risk Level 0 - 2 = Low Risk Oriented to surroundings, Maintained a safe environment, Educated pt \T\ family on fall prevention, incl call for assistance when getting out of bed. Abuse screen: Denies threats or abuse. Nutritional screening: No deficits noted. Tuberculosis screening: No symptoms or risk factors identified. Assessment: 16:37 General: Appears in no apparent distress. Behavior is calm, cooperative. Pain: mb9 Complains of pain in abdomen Pain does not radiate. Pain currently is 10 out of 10 on a pain scale. Quality of pain is described as throbbing, Pain began gradually, Is intermittent. Neuro: Jorgensen Agitation-Sedation Scale (RASS): 0 - Alert and Calm Level of Consciousness is awake, alert, obeys commands, Oriented to person, place, time, situation, Appropriate for age. Cardiovascular: Patient's skin is warm and dry. Respiratory: Airway is patent Respiratory effort is even, unlabored, Respiratory pattern is regular, symmetrical. GI: Abdomen is flat, non-distended, Bowel sounds present X 4 quads. Abd is soft and non tender X 4 quads. Reports lower abdominal pain, upper abdominal pain, nausea, vomiting. : No signs and/or symptoms were reported regarding the genitourinary system. EENT: No signs and/or symptoms were reported regarding the EENT system. Derm: Skin is pink, warm \T\ dry. Musculoskeletal: Range of motion: intact in all extremities. 17:37 Reassessment: No changes from previously documented assessment. Patient and/or family mb9 updated on plan of care and expected duration. Pain level reassessed. Patient is alert, oriented x 3, equal unlabored respirations, skin warm/dry/pink. 17:39 Reassessment: D/C pending medication administration time. mb9 17:49 Reassessment: Patient appears in no apparent distress at this time. No changes from mb9 previously documented assessment. Patient and/or family updated on plan of care and expected duration. Pain level reassessed. Vital Signs: 16:17 BP 152 / 92; Pulse 104; Resp 17; Temp 98.6(O); Pulse Ox 96% on R/A; MAP 106 mmHg; tm6 Weight 68.04 kg; Height 5 ft. 7 in. ; Pain 10/10; 16:53 BP 163 / 79; Pulse 83; ec2 17:37 BP 160 / 76; Pulse 82; Resp 16; Pulse Ox 100% on R/A; mb9 16:17 Body Mass Index 23.49 (68.04 kg, 170.18 cm) tm6 16:17 Pain Scale: Adult tm6 ED Course: 16:11 Patient arrived in ED. mg5 16:13 Sebastian Devlin MD is Attending Physician. ec2 16:19 Triage completed. tm6 16:19 Arm band placed on left wrist. tm6 16:21 Radha Ordaz RN is Primary Nurse. mb9 16:37 CBC with Diff Sent. mb9 16:37 CMP Sent. mb9 16:37 Initial lab(s) drawn, by ma, sent to lab. Inserted saline lock: 24 gauge in right hand, mb9 using aseptic technique. Blood collected. Flushed with 10 mL NS. 16:39 Bed in low position. Call light in reach. Side rails up X 1. Provided Education on: mb9 press call light if needing anything. Client placed on continuous cardiac and pulse oximetry monitoring. NIBP monitoring applied. Door closed. Noise minimized. Warm blanket given. Pillow given. 16:39 No provider procedures requiring assistance completed. mb9 17:07 Patient requests pain medication. mb9 17:49 IV discontinued, intact, bleeding controlled, No redness/swelling at site. Pressure mb9 dressing applied. Administered Medications: 16:35 Drug: Droperidol IVP 2.5 mg IVP once Route: IVP; Site: right hand; mb9 17:06 Follow up: Response: No adverse reaction mb9 16:37 Drug: NS 0.9% IV 1000 ml IV at 1 bolus Per protocol; to be given as a bolus over 60 mb9 minutes Route: IV; Rate: 1 bolus; Site: right hand; 17:37 Follow up: Response: No adverse reaction; IV Status: Completed infusion mb9 16:37 Drug: diphenhydrAMINE IVP 50 mg IVP once Route: IVP; Site: right hand; mb9 17:06 Follow up: Response: No adverse reaction mb9 17:37 Drug: morphine IVP or IV 4 mg IVP once over 4 mins Route: IVP; Infused Over: 4 mins; mb9 Site: right hand; 17:49 Follow up: Response: No adverse reaction mb9 Medication: 16:39 VIS not applicable for this client. mb9 Outcome: 17:32 Discharge ordered by . luis 17:49 Patient left the ED. mb9 Signatures: Radha Ordaz RN RN mb9 Dana Dos Santos mg5 Sebastian Devlin MD MD ec2 Matt Solis RN RN tm6 Corrections: (The following items were deleted from the chart) 17:07 16:42 Reassessment: Attempted to call report to transferring center, no answer mb9 mb9
[2023-12-18 20:41] VITALS: TEMP 98.6
[2023-12-18 20:46] VITALS: BP 160/76; O2SAT 100
== END 2023-12-18 17:49 | disposition home or self-care (01) ==
LOC: ER 16:09
DX: R10.9 Unspecified abdominal pain (principal); E87.1 Hypo-osmolality and hyponatremia; R11.2 Nausea with vomiting, unspecified; E11.9 Type 2 diabetes mellitus without complications; I10 Essential (primary) hypertension; F17.210 Nicotine dependence, cigarettes, uncomplicated
CPT/HCPCS: 85025; 81001; 36415; 80053; J1200; J1790; J7030; 96361; 96374; 96375; 99284

== ENCOUNTER 2024-03-05 05:37 | Observation (INO) | payer OTHER ==
--- OUTSIDE RECORDS SUMMARY | 2024-03-05 05:52 | XMS REPORT | Continuity of Care Document ---
Author Name Unknown Address [address] [facility] [address] [place] [address] [facility] thconnect Address [address] [facility] [place] [address] Care Team Providers Care Customs Manager Name Role Phone Gali Thomas Primary Care Physician MATT SIMPSON Attending Clinician Unavail able MATT SIMPSON Attending Clinician Unavail able Doctor Unassigned, Prosperity Attending Clinician U WALLY Pringle Attending Clinician Unavailable Gramm Natacha CLARK Attending Clinician [phone] Payers Payer Name Policy Type Policy Number Effective Date Expirati on Date Source [facility] [id number] 2017 00:00:00 Allergies, Adverse Reactions, Alerts Allergy Name Allergy Type Status Severity Reaction(s) Onset Date Inactive Date Treating Clinician Comments Source [place] - Intraven ous Propensi ty to adverse reaction to drug Active 5-23 00:00: 00 Cristian Stoll Nitrogly cerin ER - Oral Propensi ty to adverse reaction to drug Active 4-06 00:00: 00 Cristian Stoll Hmg-Coa Reductas e Inhibito rs Propensi ty to adverse reaction to drug Inactiv e 2-14 00:00: 00 Cristian Stoll Statins- HMG-CoA Reductas e Inhibito rs Propensi ty to adverse reaction to drug Inactiv e 1-27 00:00: 00 Cristian Stoll Hmg-Coa Reductas e Inhibito rs Propensi ty to adverse reaction to drug Inactiv e 11-30 00:00: 00 Cristian Stoll NITRO TRANSDER MAL DRUG Active Other-Cmnt 07-27 00:00: 00 [facility] ACETAMIN OPHEN DRUG INGREDI Active Other-Cmnt 07-27 00:00: 00 [facility] Hmg-Coa Reductas e Inhibito rs Propensi ty to adverse reaction to drug Inactiv e 05-06 00:00: 00 Cristian Stoll Nitrogly cerin Propensi ty to adverse reaction to drug Inactiv e 2017-03 00:00: 00 Cristian Stoll Medications Ordered Medication Name Filled Medication Name Start Date Stop Date Current Medication? Ordering Clinician Indication Dosage Frequency Signature (SIG) Comments Components Source ondansetron 4 mg disintegrat ing tablet 2023-03 00:00: 00 Yes 1mg Cristian Stoll promethazin e 12.5 mg tablet 2023-03 00:00: 00 Yes mg Cristian Stoll losartan 100 mg-hydrochl orothiazide 25 mg tablet 2023-03 00:00: 00 Yes 1mg Cristian Stoll metformin 500 mg tablet 2023-03 00:00: 00 Yes 1mg Cristian Stoll carvedilol 12.5 mg tablet 2023-03 00:00: 00 Yes 1mg Cristian Stoll clonidine HCl 0.3 mg tablet 2023-03 00:00: 00 Yes 1mg Cristian Stoll levothyroxi ne 137 mcg tablet 2023-03 00:00: 00 Yes 1mcg Cristian Stoll promethazin e 12.5 mg tablet 2023-03 00:00: 00 Yes mg Cristian Stoll ondansetron 4 mg disintegrat ing tablet 2023-03 00:00: 00 Yes 1mg Cristian Stoll ciprofloxac in 500 mg tablet 2023-03 00:00: 00 Yes 1mg Cristian Stoll phenazopyri dine 200 mg tablet 2023-03 00:00: 00 Yes 1mg Cristian Stoll clonidine HCl 0.3 mg tablet 2023-03 00:00: 00 Yes 1mg Cristian Stoll clonidine HCl 0.3 mg tablet 11-01 00:00: 00 Yes 1mg Cristian Stoll losartan 100 mg-hydrochl orothiazide 25 mg tablet 10-19 00:00: 00 Yes 1mg Cristian Stoll carvedilol 12.5 mg tablet 10-19 00:00: 00 Yes 1mg Cristian Stoll metformin 500 mg tablet 10-19 00:00: 00 Yes 1mg Cristian Stoll clonidine HCl 0.3 mg tablet 10-19 00:00: 00 Yes 1mg Cristian Stoll fenofibrate 160 mg tablet 10-19 00:00: 00 Yes 1mg Cristian Stoll levothyroxi ne 137 mcg tablet 10-19 00:00: 00 Yes 1mcg Cristian Stoll amlodipine 5 mg tablet 08-30 00:00: 00 Yes 1mg Cristian Stoll clonidine HCl 0.3 mg tablet 08-30 00:00: 00 Yes 1mg Cristian Stoll losartan 100 mg-hydrochl orothiazide 25 mg tablet 08-30 00:00: 00 Yes 1mg Cristian Stoll Victoza 3-Howard 0.6 mg/0.1 mL (18 mg/3 mL) subcutaneou s pen injector 07-19 00:00: 00 Yes (18 mg/3 mL) Cristian Stoll clonidine HCl 0.3 mg tablet 07-19 00:00: 00 Yes 1mg Cristian Stoll losartan 100 mg-hydrochl orothiazide 25 mg tablet 07-19 00:00: 00 Yes 1mg Cristian Stoll TAKE ONE (1) TABLET(S) BY MOUTH THREE TIMES A DAY WITH FOOD. - 00:00: 00 Yes Cristian Stoll levothyroxi ne 137 mcg tablet -15 00:00: 00 Yes 1mcg Cristian Stoll ALPRAZOLAM 1 MG TABS -10 00:00: 00 Yes Cristian Stoll clonidine HCl 0.3 mg tablet -08 00:00: 00 Yes 1mg Cristian Stoll losartan 100 mg-hydrochl orothiazide 25 mg tablet -08 00:00: 00 Yes 1mg Cristian Stoll fenofibrate 160 mg tablet -08 00:00: 00 Yes 1mg Cristian Stoll loratadine 10 mg tablet -08 00:00: 00 Yes 1mg Cristian Stoll carvedilol 12.5 mg tablet -08 00:00: 00 Yes 1mg Cristian Stoll metformin 500 mg tablet - 00:00: 00 Yes 1mg Cristian Stoll carvedilol 25 mg tablet 06-14 00:00: 00 Yes 1mg Cristian Stoll INJECT 0.25 MG ONCE WEEKLY FOR 2 WEEKS THEN INCREASE TO 0.5 MG WEEKLY. 06-14 00:00: 00 Yes Cristian Stoll TAKE ONE (1) TABLET BY MOUTH EVERY MORNING AND TWO (2) TABLETS AT BEDTIME. 06-14 00:00: 00 Yes Cristian Stoll TAKE ONE (1) CAPSULE BY MOUTH DAILY. -03 00:00: 00 Yes Cristian Stoll RISPERIDONE 2 MG TABS 3-21 00:00: 00 Yes Cristian Stoll levothyroxi ne 137 mcg tablet 3-20 00:00: 00 Yes 1mcg Cristian Stoll OXCARBAZEPI NE 600 MG TABS 3-11 00:00: 00 Yes 600 Cristian Stoll TAKE 1/2 (ONE-HALF) TO 1 TABLET BY MOUTH AT BEDTIME. 2-14 00:00: 00 Yes Cristian Stoll TAKE ONE (1) TABLET(S) BY MOUTH TWICE A DAY. 2-09 00:00: 00 Yes Cristian Stoll TAKE ONE (1) TABLET(S) BY MOUTH THREE TIMES A DAY WITH FOOD. 2-06 00:00: 00 Yes Cristian Stoll TAKE ONE (1) TABLET(S) BY MOUTH DAILY AT BEDTIME. 2-06 00:00: 00 Yes 10 Cristian Stoll ALPRAZOLAM 1 MG TABS 2-06 00:00: 00 Yes Cristian Stoll LINZESS 290 MCG 1-22 00:00: 00 Yes Cristian Stoll BENZTROPINE MESYLATE 0.5 MG TABS - 00:00: 00 Yes Cristian Stoll VENLAFAXINE 100MG Tablets - 00:00: 00 Yes 100 Cristian Stoll ALPRAZOLAM 1 MG TABS 1- 00:00: 00 Yes Cristian Stoll ZOLPIDEM TARTRATE 10 MG TABS - 00:00: 00 Yes Cristian Stoll TAKE 1 TABLET BY MOUTH DAILY 2022-03 00:00: 00 07-19 00:00 :00 No 137 Cristian Stoll LEVOTHYROXI NE SODIUM 137 MCG TABS 2022-03- 00:00: 00 Yes 137 Cristian Stoll OXCARBAZEPI N 600MG Tablets 2022-03 00:00: 00 Yes Cristian Stoll TRAZODONE HYDROCHLORI DE 100 MG TABS 2022-03 00:00: 00 Yes Cristian Stoll METFORMIN HYDROCHLORI DE 500 MG TABS 2022-03 00:00: 00 Yes Cristian Stoll TAKE 1 TABLET BY MOUTH DAILY 2022-03 00:00: 00 07-19 00:00 :00 No [id number] Cristian Stoll TAKE 1 TABLET DAILY. 2022-03 00:00: 00 07-19 00:00 :00 No 160 Cristian Stoll ZOLPIDEM TARTRATE 10 MG TABS 2022-03- 00:00: 00 Yes Cristian Stoll VENLAFAXINE HCL 100 MG TABS 2022-03 00:00: 00 Yes Cristian Stoll ONDANSETRON 4MG ODT Tablets 2022-03- 00:00: 00 Yes Cristian Stoll TAKE 1 TAB EVERY 8 HOURS NEEDED FOR SYSTOLIC BLOOD PRESSURE GREATER THAN 160 2022-03- 00:00: 00 07-19 00:00 :00 No 3 Cristian Stoll TRAZODONE HYDROCHLORI DE 100 MG TABS 2022-03- 00:00: 00 Yes Cristian Stoll VENLAFAXINE HCL 100 MG TABS 2022-03 00:00: 00 Yes Cristian Stoll RISPERIDONE 2 MG TABS 2022-03 1-11 00:00: 00 Yes Cristian Stoll OXCARBAZEPI NE 600 MG TABS 2022-03 1- 00:00: 00 Yes Cristian Stoll ALPRAZOLAM 1 MG TABS 2022-03 1- 00:00: 00 Yes Cristian Stoll ZOLPIDEM TARTRATE 10 MG TABS 2022-03 1- 00:00: 00 Yes Cristian Stoll LINZESS 290 MCG 2022-03 0-24 00:00: 00 Yes Cristian Stoll TRAZODONE 100MG Tablets 2022-03 0-19 00:00: 00 Yes Cristian Stoll TAKE 1 TAB EVERY 8 HOURS NEEDED FOR SYSTOLIC BLOOD PRESSURE GREATER THAN 160 2022-03 0- 00:00: 00 07-19 00:00 :00 No 3 Cristian Stoll TAKE 1 TABLET BY MOUTH DAILY 2022-03 0- 00:00: 00 07-19 00:00 :00 No 137 Cristian Stoll RISPERIDONE 2 MG TABS 2022-03 0-09 00:00: 00 Yes Crisitan Stoll OXCARBAZEPI NE 600 MG TABS 2022-03 009 00:00: 00 Yes Cristian Stoll TAKE 1 TABLET BY MOUTH THREE TIMES DAILY WITH FOOD 2022-03 0 00:00: 00 Yes Cirstian Stoll ALPRAZOLAM 1 MG TABS 2022-03 005 00:00: 00 Yes Cristian Stoll TAKE 1 TABLET BY MOUTH DAILY 0 11-25 00:00: 00 07-19 00:00 :00 No [id number] Cristian Stoll TAKE 1 TABLET BY MOUTH DAILY 0 - 00:00: 00 Yes [id number] Cristian Stoll TRAZODONE HYDROCHLORI DE 100 MG TABS - 00:00: 00 Yes Cristian Stoll OXCARBAZEPI NE 600 MG TABS - 00:00: 00 Yes Cristian Stoll ZOLPIDEM TARTRATE 10 MG TABS 9-05 00:00: 00 Yes Cristian Stoll CLONIDINE HYDROCHLORI DE 0.3 MG TABS - 00:00: 00 Yes Cristian Stoll ALPRAZOLAM 1 MG TABS 9-05 00:00: 00 Yes Cristian Stoll TAKE 1 TABLET DAILY. 9 00:00: 00 07-19 00:00 :00 No 137 Cristian Stoll ONDANSETRON ODT 4 MG TBDP 8- 00:00: 00 Yes Cristian Stoll TRAZODONE HYDROCHLORI DE 100 MG TABS 8- 00:00: 00 Yes Cristian Stoll CLONIDINE HYDROCHLORI DE 0.3 MG TABS 10-13 00:00: 00 Yes Cristian Stoll ZOLPIDEM TARTRATE 10 MG TABS 10-13 00:00: 00 Yes Cristian Stoll ALPRAZOLAM 1MG Tablets 10-13 00:00: 00 Yes Cristian Stoll RISPERIDONE 2 MG TABS 10-13 00:00: 00 Yes Cristian Stoll TAKE 1 TABLET DAILY. 10-13 00:00: 00 07-19 00:00 :00 No 137 Cristian Stoll ACETAMINOPH EN/CODEINE 300-30 MG TABS 7 00:00: 00 Yes Cristian Stoll RISPERIDONE 2 MG TABS - 00:00: 00 Yes Cristian Stoll TRAZODONE HYDROCHLORI DE 100 MG TABS -18 00:00: 00 Yes Cristian Stoll OXCARBAZEPI NE 600 MG TABS 09-11 00:00: 00 Yes Cristian Stoll ALPRAZOLAM 1 MG TABS 7-05 00:00: 00 Yes Cristian Stoll ZOLPIDEM 10MG Tablets 7- 00:00: 00 Yes Cristian Stoll LINZESS 290 MCG 6- 00:00: 00 Yes Cristian Stoll TAKE 1 TAB EVERY 8 HOURS NEEDED FOR SYSTOLIC BLOOD PRESSURE GREATER THAN 160 6-15 00:00: 00 07-19 00:00 :00 No 3 Cristian Stoll OXCARBAZEPI N 600MG Tablets 6-06 00:00: 00 Yes Cristian Stoll VENLAFAXINE 100MG Tablets 2022-0 6-06 00:00: 00 Yes Cristian Stoll GABAPENTIN 300MG Capsules 2022-0 6-04 00:00: 00 Yes Cristian Stoll RISPERIDONE 2MG Tablets 0 6-04 00:00: 00 Yes Cristian Stoll TRAZODONE HYDROCHLORI DE 100 MG TABS 2022-0 6-04 00:00: 00 Yes Cristian Stoll ZOLPIDEM 10MG Tablets 2022-0 6-04 00:00: 00 Yes Cristian Stoll ALPRAZOLAM 1MG Tablets 0 6- 00:00: 00 Yes Cristian Stoll ONDANSETRON 4MG ODT Tablets 0 5-24 00:00: 00 Yes Cristian Stoll ONDANSETRON ODT 4 MG TBDP 2022-0 5-17 00:00: 00 Yes 4 Cristian Stoll VENLAFAXINE 100MG Tablets 0 5-08 00:00: 00 Yes Cristian Stoll PROMETHAZIN E HYDROCHLORI DE 25 MG TABS 2022-0 4-29 00:00: 00 Yes Cristian Stoll LOS[place]AN POT 50MG Tablets 0 4-28 00:00: 00 Yes Cristian Stoll CLONIDINE HYDROCHLORI DE 0.3 MG TABS 2022-0 4-26 00:00: 00 Yes Cristian Stoll ZOLPIDEM TARTRATE 10 MG TABS 0 4-25 00:00: 00 Yes Cristian Stoll TRAMADOL HCL 50 MG TABS 2022-0 4-20 00:00: 00 Yes Cristian Stoll DICYCLOMINE HYDROCHLORI DE 20 MG TABS 2022-0 4-20 00:00: 00 Yes Cristian Stoll OXCARBAZEPI NE 600 MG TABS 2022-0 4-13 00:00: 00 Yes Cristian Stoll CLONAZEPAM 1 MG TABS 2022-0 4-13 00:00: 00 Yes Cristian Stoll VENLAFAXINE HCL 100 MG TABS 2022-0 4-12 00:00: 00 Yes Cristian Stoll AZITHROMYCI N 250 MG TABS 2022-0 4-11 00:00: 00 Yes Cristian Stoll APAP/CODEIN E 300-30MG Tablets 2022-0 4-11 00:00: 00 Yes Cristian Stoll ZOLPIDEM TARTRATE 10 MG TABS 4-08 00:00: 00 Yes Cristian Stoll ONDANSETRON ODT 4 MG TBDP 4-06 00:00: 00 Yes Cristian Stoll TRAZODONE 100MG Tablets 05-28 00:00: 00 Yes Cristian Stoll TAKE 2 TABLETS DAILY. 05-28 00:00: 00 07-19 00:00 :00 No 1 Cristian Stoll LOS[place]AN POTASSIUM/H YDROCHLOROT HIAZ SAIDA 100-25 MG TABS 18 00:00: 00 Yes Cristian Stoll FENOFIBRATE 160MG Tablets 05-24 00:00: 00 Yes Cristian Stoll PROMETHAZIN E HCL 6.25 MG/5ML SYRP 05-24 00:00: 00 Yes Cristian Stoll TAKE 1 TAB EVERY 8 HOURS NEEDED FOR SYSTOLIC BLOOD PRESSURE GREATER THAN 160 05-24 00:00: 00 07-19 00:00 :00 No 3 Cristian Stoll TAKE 1 TABLET DAILY. 05-24 00:00: 00 07-19 00:00 :00 No 10 Cristian Stoll TAKE 5 ML EVERY 4 TO 6 HOURS NEEDED. 05-24 00:00: 00 07-19 00:00 :00 No [id number] Cristian Stoll TAKE 1 TABLET DAILY. 05-24 00:00: 00 07-19 00:00 :00 No 10 Cristian Stoll TAKE 1 TABLET BY MOUTH TWICE A DAY 05-24 00:00: 00 07-19 00:00 :00 No 500 Cristian Stoll TAKE 1 TABLET BY MOUTH DAILY 18 00:00: 00 07-19 00:00 :00 No 125 Cristian Stoll TAKE 1 TABLET DAILY. 18 00:00: 00 07-19 00:00 :00 No 137 Cristian Stoll VENLAFAXINE 100MG Tablets 3-14 00:00: 00 Yes Cristian Stoll CLINDAMYCIN HYDROCHLORI DE 150 MG 2023-0 3-13 00:00: 00 Yes Cristian Stoll VENLAFAXINE 150MG ER Capsules 2022-0 3-13 00:00: 00 Yes Cristian Stoll FAMOTIDINE 20 MG TABS 2022-0 3-10 00:00: 00 Yes Cristian Stoll ONDANSETRON HYDROCHLORI DE 4 MG TABS 2022-0 3-10 00:00: 00 Yes Cristian Stoll PROMETHAZIN E HYDROCHLORI DE 25 MG TABS 2022-0 3-10 00:00: 00 Yes Cristian Stoll CLONAZEPAM 1MG Tablets 0 3-09 00:00: 00 Yes Cristian Stoll ZOLPIDEM 10MG Tablets 0 3-08 00:00: 00 Yes Cristian Stoll HYDROCO/APA P 7.5-325 Tablets 0 3-07 00:00: 00 Yes Cristian Stoll AMOXICILLIN 500 MG 2022-0 3-07 00:00: 00 Yes Cristian Stoll APAP/CODEIN E 300-30MG Tablets 2022-0 2-28 00:00: 00 Yes Cristian Stoll CLINDAMYCIN 150MG Capsules 2022-0 2-28 00:00: 00 Yes Cristian Stoll FAMOTIDINE 20MG Tablets 2022-0 2-27 00:00: 00 Yes Cristian Stoll ONDANSETRON 4MG Tablets 2022-0 2-27 00:00: 00 Yes Cristian Stoll DICYCLOMINE 20MG Tablets 2022-0 2-27 00:00: 00 Yes Cristian Stoll CLINDAMYCIN HYDROCHLORI DE 150 MG 2022-0 2-13 00:00: 00 Yes Cristian Stoll APAP/CODEIN E 300-30MG Tablets 2022-0 2-13 00:00: 00 Yes Cristian Stoll VENLAFAXINE 100MG Tablets 2022-0 2-09 00:00: 00 Yes German Stoll ONDANSETRON ODT 4 MG TBDP 2022-0 2-09 00:00: 00 Yes Cristian Stoll VENLAFAXINE 150MG ER Capsules 2022-0 2-01 00:00: 00 Yes Cristian Stoll ZOLPIDEM 10MG Tablets 2022-0 2-01 00:00: 00 Yes Cristian Stoll OXCARBAZEPI N 600MG Tablets 2022-0 2-01 00:00: 00 Yes Cristian Stoll TRAZODONE 100MG Tablets 2- 00:00: 00 Yes Cristian Stoll RISPERIDONE 2 MG TABS 2- 00:00: 00 Yes Cristian Stoll CLONAZEPAM 1MG Tablets 2- 00:00: 00 Yes Cristian Stoll ONDANSETRON 4MG ODT Tablets 1- 00:00: 00 Yes Cristian Stoll CLONAZEPAM 1MG Tablets 1- 00:00: 00 Yes Cristian Stoll PROMETHAZIN E 25MG Tablets 1- 00:00: 00 Yes Cristian Stoll LINZESS 290 MCG 1- 00:00: 00 Yes Cristian Stoll ONDANSETRON 4MG ODT Tablets - 00:00: 00 Yes Cristian Stoll LEVOTHYROXI N 137MCG Tablets - 00:00: 00 07-19 00:00 :00 No Cristian Stoll ONDANSETRON 4MG ODT Tablets 1- 00:00: 00 Yes Cristian Stoll CIPROFLOXAC N 500MG Tablets 2021-03 2- 00:00: 00 Yes Cristian Stoll Dose Unknown 2021-03 2- 00:00: 00 07-19 00:00 :00 No Cristian Stoll HYOSCYAMINE SULFATE ODT 0.125 MG TBDP 2021-03 2- 00:00: 00 Yes Cristian Stoll ONDANSETRON 4MG ODT Tablets 2021-03 2- 00:00: 00 Yes Cristian Stoll TAKE 1 TABLET BY MOUTH AT BEDTIME 2021-03 2- 00:00: 00 Yes Cristian Stoll SUCRALFATE 1 GM/10ML SUSP 2021-03 2- 00:00: 00 Yes Cristian Stoll LINZESS 72 MCG CAPS 2021-03 2- 00:00: 00 Yes Cristian Stoll METFORMIN HYDROCHLORI DE ER 500 MG TB24 2021-03 2-16 00:00: 00 Yes Cristian Stoll DOXEPIN HYDROCHLORI DE 50 MG CAPS 2021-03 2- 00:00: 00 Yes Cristian Stoll Dose Unknown 2021-03 2-16 00:00: 00 Yes Cristian Stoll TRAMADOL HCL 50 MG TABS 2021-03 2-16 00:00: 00 Yes Cristian Stoll DEXAMETHASO NE 2 MG TABS 2021-03-16 00:00: 00 Yes Cristian Stoll TAKE 1 TABLET BY MOUTH TWICE DAILY WITH FOOD 2021-03 2-16 00:00: 00 Yes Cristian Stoll RISPERIDONE 2 MG TABS 2021-03 2-16 00:00: 00 Yes Cristian Stoll CLINDAMYCIN HYDROCHLORI DE 150 MG CAPS 2021-03-16 00:00: 00 Yes Cristian Stoll NAPROXEN 500 MG TABS 2021-03-16 00:00: 00 Yes Cristian Stoll TAKE ONE HALF TABLET BY MOUTH TWICE DAILY 2021-03- 00:00: 00 Yes Cristian Stoll PANTOPRAZOL E 40MG Tablets 2021-03- 00:00: 00 Yes Cristian Stoll OXCARBAZEPI NE 600 MG TABS 2021-03-16 00:00: 00 Yes Cristian Stoll METHOCARBAM 500MG Tablets 2021-03-16 00:00: 00 Yes Cristian Stoll OMEPRAZOLE 40 MG CPDR 2021-03 2-16 00:00: 00 Yes Cristian Stoll AMOXICILLIN 500MG Capsules 2021-03 2-16 00:00: 00 Yes Cristian Stoll METOCLOPRAM SAIDA HYDROCHLORI DE 10 MG TABS 2021-03 2-16 00:00: 00 Yes Cristian Stoll IBUPROFEN 600 MG TABS 2021-03 2-16 00:00: 00 Yes Cristian Stoll TIZANIDINE HYDROCHLORI DE 4 MG TABS 2021-03-16 00:00: 00 Yes Cristian Stoll CLONIDINE HYDROCHLORI DE 0.1 MG TABS 2021-03-16 00:00: 00 Yes Cristian Stoll LOS[place]AN POTASSIUM 100 MG TABS 2021-03-16 00:00: 00 Yes Cristian Stoll FAMOTIDINE 20 MG TABS 2021-03 2-16 00:00: 00 Yes Cristian Stoll TAKE 1 CAPSULE (150 MG) BY MOUTH DAILY WITH FOOD 2021-03-16 00:00: 00 Yes Cristian Stoll PROPRANOLOL 20MG Tablets 2021-03-16 00:00: 00 Yes Cristian Stoll TAKE 1 TABLET BY MOUTH EVERY DAY FOR 4 DAYS 2021-03 2-16 00:00: 00 Yes Cristian Stoll TRAZODONE HYDROCHLORI DE 100 MG TABS 2021-03 2-16 00:00: 00 Yes Cristian Stoll Dose Unknown 2021-03 2- 00:00: 00 Yes Cristian Stoll LEVETIRACET A 500MG Tablets 2021-03 2- 00:00: 00 Yes Cristian Stoll PROPRANOLOL HYDROCHLORI DE 10 MG TABS 2021-03 2- 00:00: 00 Yes Cristian Stoll ZOLPIDEM TARTRATE ER 12.5 MG TBCR 2021-03 2- 00:00: 00 Yes Cristian Stoll GABAPENTIN 300 MG CAPS 2021-03 2- 00:00: 00 Yes Cristian Stoll Dose Unknown 2021-03 2- 00:00: 00 Yes Cristian Saray Stoll Dose Unknown 2021-03 2- 00:00: 00 Yes Cristian Saray Stoll Dose Unknown 2021-03 00:00: 00 Yes Cristian Stoll ONDANSETRON HYDROCHLORI DE 4 MG TABS 2021-03 00:00: 00 Yes Cristian Saray Stoll Dose Unknown 2021-03 2- 00:00: 00 Yes 50 Cristian Stoll Dose Unknown 2021-03 2- 00:00: 00 Yes 300 Cristian Stoll CLONAZEPAM 1MG Tablets 2021-03 2- 00:00: 00 Yes Cristian Saray Stoll Dose Unknown 2021-03 2- 00:00: 00 Yes Cristian Saray Stoll Dose Unknown 2021-03 00:00: 00 Yes Cristian Stoll Dose Unknown 2021-03 2 00:00: 00 Yes Cristian Saray Jerman TAKE 1 CAPSULE BY MOUTH DAILY AT BEDTIME 2021-03- 00:00: 00 Yes 30 Cristian Stoll CIPROFLOXAC IN HYDROCHLORI DE 500 MG TABS 2021-03 2- 00:00: 00 Yes Cristian Stoll Dose Unknown 2021-03 2- 00:00: 00 Yes Cristian Saray Jerman TAKE 1 TAB EVERY 8 HOURS NEEDED FOR SYSTOLIC BLOOD PRESSURE GREATER THAN 160 2021-03 2 00:00: 07-19 00:00 :00 No Cristian Stoll TAKE 1 TABLET BY MOUTH DAILY 2021-03- 00:00: 00 07-19 00:00 :00 No Cristian Stoll TAKE 1 TABLET DAILY. 2021-03- 00:00: 00 07-19 00:00 :00 No 3unit Cristian Stoll Dose Unknown 2021-03 2- 00:00: 00 Yes Cristian Stoll VENLAFAXINE HCL 100 MG TABS 2021-03 2- 00:00: 00 Yes 3 Cristian Stoll [place]AN POTASSIUM/H YDROCHLOROT HIAZ SAIDA 100-25 MG TABS 2021-03 2- 00:00: 00 Yes Cristian Stoll METOCLOPRAM 10MG Tablets 2021-03 2- 00:00: 00 Yes Cristian Stoll CLONIDINE HYDROCHLORI DE 0.3 MG TABS 2021-03 2- 00:00: 00 Yes Cristian Stoll CARVEDILOL 12.5 MG TABS 2021-03 2- 00:00: 00 Yes Cristian Stoll IBUPROFEN 600MG Tablets 2021-03 2- 00:00: 00 Yes Cristian Stoll ONDANSETRON 4MG Tablets 2021-03 2- 00:00: 00 Yes Cristian Stoll [place] POTASSIUM/H YDROCHLOROT HIAZ SAIDA 100-25 MG TABS 2021-03 2- 00:00: 00 No [place] POTASSIUM/H YDROCHLOROT HIAZ SAIDA 100-25 MG TABS 2021-03 2- 00:00: 00 07-19 00:00 :00 No Cristian Stoll LEVOTHYROXI N 137MCG Tablets 2021-03 2- 00:00: 00 07-19 00:00 :00 No Cristian Stlol DICYCLOMINE 20MG Tablets 2021-03 2- 00:00: 00 Yes Cristian Stoll OXCARBAZEPI N 600MG Tablets 2021-03- 00:00: 00 Yes Cristian Stoll VENLAFAXINE HCL 100 MG TABS 2021-03 1-16 00:00: 00 Yes Cristian Stoll RISPERIDONE 2 MG TABS 2021-03 1- 00:00: 00 Yes Cristian Stoll CLONAZEPAM 1 MG TABS 2021-03 00:00: 00 Yes Cristian Stoll TRAZODONE HYDROCHLORI DE 100 MG TABS 2021-03 00:00: 00 Yes Cristian Stoll PANTOPRAZOL E 40MG Tablets 2021-03 00:00: 00 Yes Cristian Stoll DICYCLOMINE 20MG Tablets 2021-03 00:00: 00 Yes Cristian Stoll ZOLPIDEM TARTRATE 10 MG TABS 2021-03 00:00: 00 Yes Cristian Stoll TAKE 1 TABLET BY MOUTH EVERY 8 HOURS NEEDED 2021-03 00:00: 00 Yes Cristian Stoll Dose Unknown 2021-03 00:00: 00 Yes Cristian Stoll Dose Unknown 2021-03 00:00: 00 Yes Cristian Stoll APAP/CODEIN E 300-30MG Tablets 2021-03 00:00: 00 Yes Cristian Stoll VENLAFAXINE HCL ER 150 MG CP24 2021-03 00:00: 00 Yes Cristian Stoll METHOCARBAM OL 500 MG TABS 2021-03 00:00: 00 Yes Cristian Stoll ZOLPIDEM TARTRATE 10 MG TABS 2021-03 00:00: 00 No ONDANSETRON 4MG Tablets 2021-03 00:00: 00 No 4 TAKE 1 TABLET BY MOUTH DAILY AT BEDTIME 2021-03 00:00: 00 No TEMAZEPAM 30 MG CAPS 2021-03 00:00: 00 No TAKE 1 TABLET BY MOUTH EVERY SIX HOURS NEEDED 2021-03 00:00: 00 No VENLAFAXINE HCL ER 150 MG CP24 2021-03 00:00: 00 No CLONIDINE HYDROCHLORI DE 0.3 MG TABS 2021-03 00:00: 00 No 3 ZOLPIDEM TARTRATE 10 MG TABS 2021-03 00:00: 00 No TAKE 1 TABLET BY MOUTH EVERY SIX HOURS NEEDED FOR NAUSEA AND VOMITING 2021-03 00:00: 00 No TAKE 1 TABLET BY MOUTH DAILY AT BEDTIME 2021-03 00:00: 00 No Dose Unknown 2021-03 00:00: 00 No TAKE 1 TABLET BY MOUTH EVERY SIX HOURS NEEDED 2021-03 00:00: 00 No VENLAFAXINE HCL ER 150 MG CP24 2021-03 00:00: 00 No CLONIDINE HYDROCHLORI DE 0.3 MG TABS 2021-03 00:00: 00 No CLONIDINE HYDROCHLORI DE 0.3 MG TABS 2021-03 00:00: 00 07-19 00:00 :00 No Cristian Stoll CLONAZEPAM 1 MG TABS 2021-03 0- 00:00: 00 Yes Cristian Stoll ONDANSETRON HYDROCHLORI DE 4 MG TABS 2021-03 0 00:00: 00 Yes Cristian Stoll APAP/CODEIN E 300-30MG Tablets 0 - 00:00: 00 Yes Cristian Stoll ACETAMINOPH EN/CODEINE 300-30 MG TABS 0 - 00:00: 00 Yes Cristian Stoll AMOXICILLIN 500MG Capsules 0 - 00:00: 00 Yes Cristian Stoll CLONAZEPAM 1 MG TABS 0 -18 00:00: 00 Yes Cristian Stoll CLONAZEPAM 1 MG TABS 0 - 00:00: 00 Yes Cristian Stoll CLONAZEPAM 1 MG TABS 0 - 00:00: 00 No CLONAZEPAM 1 MG TABS 0 - 00:00: 00 No CLONAZEPAM 1 MG TABS 0 - 00:00: 00 No TAKE 1 TABLET BY MOUTH EVERY 12 HOURS FOR 10 DAYS 0 11-08 00:00: 00 Yes Cristian Stoll Dose Unknown 0 - 00:00: 00 Yes Cristian Stoll Dose Unknown 0 - 00:00: 00 Yes Cristian Stoll TAKE 2 TABLETS BY MOUTH THREE TIMES DAILY NEEDED 2021-0 - 00:00: 00 Yes 300 Cristian Stoll ONDANSETRON HYDROCHLORI DE 4 MG TABS 2021-0 - 00:00: 00 Yes Cristian Stoll OMEPRAZOLE 40 MG CPDR 2021-0 - 00:00: 00 Yes Cristian Stoll TAKE 1 TABLET BY MOUTH EVERY 12 HOURS FOR 10 DAYS 0 11-08 00:00: 00 No CLONAZEPAM 2 MG TABS 0 - 00:00: 00 No DICLOFENAC [address] DR Tablets 0 11-08 00:00: 00 No 75 TAKE 2 TABLETS BY MOUTH THREE TIMES DAILY NEEDED 0 - 00:00: 00 No 750 TAKE 1 TABLET BY MOUTH EVERY 12 HOURS FOR 10 DAYS 0 11-08 00:00: 00 No CLONAZEPAM 2 MG TABS 0 11-08 00:00: 00 No DICLOFENAC [address] DR Tablets 0 11-08 00:00: 00 No 75 TAKE 2 TABLETS BY MOUTH THREE TIMES DAILY NEEDED 0 11-08 00:00: 00 No 750 TAKE 1 TABLET BY MOUTH EVERY 12 HOURS FOR 10 DAYS 0 11-08 00:00: 00 No CLONAZEPAM 2 MG TABS 0 11-08 00:00: 00 No DICLOFENAC [address]MG DR Tablets 0 11-08 00:00: 00 No 75 TAKE 2 TABLETS BY MOUTH THREE TIMES DAILY NEEDED 0 11-08 00:00: 00 No 750 LEVOTHYROXI NE SODIUM 137 MCG TABS 0 11-08 00:00: 00 07-19 00:00 :00 No Cristian Stoll TRAZODONE 100MG Tablets 0 -31 00:00: 00 Yes Cristian Stoll AMOXICILLIN 500MG Capsules 0 -30 00:00: 00 Yes Cristian Stoll METOCLOPRAM SAIDA HYDROCHLORI DE 10 MG TABS 0 -23 00:00: 00 Yes Cristian Stoll CLONAZEPAM 1MG Tablets 0 8-20 00:00: 00 Yes Cristian Stoll VENLAFAXINE 100MG Tablets 0 8-20 00:00: 00 Yes Cristian Stoll RISPERIDONE 2 MG TABS 0 8-20 00:00: 00 Yes Cristian Stoll ZOLPIDEM TARTRATE 10 MG TABS 0 8-20 00:00: 00 Yes Cristian Stoll PROPRANOLOL 20MG Tablets 0 8-20 00:00: 00 Yes Cristian Stoll RISPERIDONE 2 MG TABS 0 8-17 00:00: 00 Yes Cristian Stoll ZOLPIDEM 10MG Tablets 2021-0 8-12 00:00: 00 Yes Cristian Stoll CLONAZEPAM 1MG Tablets 0 8-10 00:00: 00 Yes Cristian Stoll CLONIDINE HYDROCHLORI DE 0.3 MG TABS 0 8-04 00:00: 00 Yes Cristian Stoll PROMETHAZIN E 25MG Tablets 0 7-30 00:00: 00 Yes Cristian Stoll ONDANSETRON 4MG Tablets 0 7-30 00:00: 00 Yes Cristian Stoll DICYCLOMINE HYDROCHLORI DE 20 MG TABS 0 7-29 00:00: 00 Yes Cristian Stoll APAP/CODEIN E 300-30MG Tablets 0 7-18 00:00: 00 Yes Cristian Stoll ONDANSETRON HYDROCHLORI DE 4 MG TABS 0 7-15 00:00: 00 Yes Cristian Stoll TAKE 1 TABLET BY MOUTH DAILY 2021-0 7-12 00:00: 00 Yes Cristian Stoll Dose Unknown 0 7-12 00:00: 00 Yes Cristian Stoll losartan 100 mg-hydrochl orothiazide 25 mg tablet 0 7-12 00:00: 00 No 1mg carvedilol 12.5 mg tablet 2021-0 7-12 00:00: 00 No 1mg losartan 100 mg-hydrochl orothiazide 25 mg tablet 0 7-12 00:00: 00 No 1mg carvedilol 12.5 mg tablet 2021-0 7-12 00:00: 00 No 1mg losartan 100 mg-hydrochl orothiazide 25 mg tablet 2021-0 7-12 00:00: 00 No 1mg carvedilol 12.5 mg tablet 2021-0 7-12 00:00: 00 No 1mg losartan 100 mg-hydrochl orothiazide 25 mg tablet 2021-0 7-12 00:00: 00 No 1mg carvedilol 12.5 mg tablet 2021-0 7-12 00:00: 00 No 1mg CLONAZEPAM 1 MG TABS 2021-0 7-05 00:00: 00 Yes Cristian Stoll ZOLPIDEM TARTRATE 10 MG TABS 2021-0 7-05 00:00: 00 Yes Cristian Stoll VENLAFAXINE HCL 100 MG TABS 0 7-05 00:00: 00 Yes Cristian Stoll OXCARBAZEPI NE 600 MG TABS 0 7-05 00:00: 00 Yes Cristian Stoll FAMOTIDINE 20MG Tablets 0 7- 00:00: 00 Yes Cristian Stoll FAMOTIDINE 20MG Tablets 0 6-22 00:00: 00 Yes Cristian Stoll APAP/CODEIN E 300-30MG Tablets 0 6-17 00:00: 00 Yes Cristian Stoll ACETAMINOPH EN/CODEINE 300-30 MG TABS 0 6-14 00:00: 00 Yes Cristian Stoll TAKE 2 TABLETS BY MOUTH THREE TIMES DAILY NEEDED 0 6-12 00:00: 00 Yes Cristian Stoll RISPERIDONE 2MG Tablets 0 - 00:00: 00 Yes Cristian Stoll METOCLOPRAM SAIDA HYDROCHLORI DE 10 MG TABS 0 - 00:00: 00 Yes Cristian Stoll PROPRANOLOL HYDROCHLORI DE 20 MG TABS 0 - 00:00: 00 Yes Cristian Stoll CLONAZEPAM 1MG Tablets 0 08-06 00:00: 00 Yes Cristian Stoll OXCARBAZEPI N 600MG Tablets 0 - 00:00: 00 Yes Cristian Stoll ZOLPIDEM TARTRATE 10 MG TABS 0 - 00:00: 00 Yes Cristian Stoll TAKE 1 TAB EVERY 8 HOURS NEEDED FOR SYSTOLIC BLOOD PRESSURE GREATER THAN 160 0 08-01 00:00: 00 Yes Cristian Stoll Dose Unknown 0 08-01 00:00: 00 No Dose Unknown 0 08-01 00:00: 00 No clonidine HCl 0.3 mg tablet 0 08-01 00:00: 00 No 1mg Dose Unknown 0 08-01 00:00: 00 No Dose Unknown 0 07-29 00:00: 00 Yes Cristian Stoll levothyroxi ne 137 mcg tablet 0 07-29 00:00: 00 No 1mcg levothyroxi ne 137 mcg tablet 0 07-29 00:00: 00 No 1mcg levothyroxi ne 137 mcg tablet 0 5-23 00:00: 00 No 1mcg levothyroxi ne 137 mcg tablet 0 5-23 00:00: 00 No 1mcg VENLAFAXINE 100MG Tablets 0 5-16 00:00: 00 Yes Cristian Stoll APAP/CODEIN E 300-30MG Tablets 0 5-10 00:00: 00 Yes Cristian Stoll OMEPRAZOLE 40 MG CPDR 0 5-03 00:00: 00 Yes Cristian Stoll METOCLOPRAM SIADA HYDROCHLORI DE 10 MG TABS 0 5-03 00:00: 00 Yes Cristian Stoll CLONAZEPAM 1 MG TABS 0 5- 00:00: 00 Yes Cristian Stoll ONDANSETRON HYDROCHLORI DE 4 MG TABS - 00:00: 00 Yes Cristian Stoll metformin ER 500 mg tablet,exte nded release 24 hr 0 4-24 00:00: 00 Yes 1mg Cristian Stoll metformin ER 500 mg tablet,exte nded release 24 hr 0 4-24 00:00: 00 No 1mg metformin ER 500 mg tablet,exte nded release 24 hr 2021-0 4-24 00:00: 00 No 1mg metformin ER 500 mg tablet,exte nded release 24 hr 2021-0 4-24 00:00: 00 No 1mg metformin ER 500 mg tablet,exte nded release 24 hr 2021-0 4-24 00:00: 00 No 1mg Dose Unknown -21 00:00: 00 Yes Cristian Stoll fenofibrate 160 mg tablet 0 4-21 00:00: 00 No 1mg fenofibrate 160 mg tablet 0 4-21 00:00: 00 No 1mg fenofibrate 160 mg tablet 0 4-21 00:00: 00 No 1mg fenofibrate 160 mg tablet 0 4-21 00:00: 00 No 1mg clonidine HCl 0.3 mg tablet 0 4-20 00:00: 00 Yes 1mg Cristian Stoll Dose Unknown 0 4-20 00:00: 00 Yes 3 Cristian Stoll clonidine HCl 0.3 mg tablet 2022-0 4-20 00:00: 00 No 1mg clonidine HCl 0.3 mg tablet 2021-0 -20 00:00: 00 No 1mg clonidine HCl 0.3 mg tablet 2021-0 -20 00:00: 00 No 1mg clonidine HCl 0.3 mg tablet 0 -20 00:00: 00 No 1mg Dose Unknown 0 4-06 00:00: 00 Yes Cristian Stoll Dose Unknown 0 4-06 00:00: 00 Yes Cristian Stoll Dose Unknown 0 -06 00:00: 00 Yes Cristian Stoll Dose Unknown 0 -06 00:00: 00 Yes Cristian Stoll Dose Unknown 0 -06 00:00: 00 No Dose Unknown 0 -06 00:00: 00 No Dose Unknown 0 06 00:00: 00 No levothyroxi ne 137 mcg tablet 0 -06 00:00: 00 No 1mcg Dose Unknown 0 -06 00:00: 00 No Dose Unknown 0 4-06 00:00: 00 No Dose Unknown 0 06 00:00: 00 No levothyroxi ne 137 mcg tablet 0 -06 00:00: 00 No 1mcg Dose Unknown 0 -06 00:00: 00 No Dose Unknown 0 406 00:00: 00 No Dose Unknown 0 4-06 00:00: 00 No levothyroxi ne 137 mcg tablet 2021-0 -06 00:00: 00 No 1mcg Dose Unknown 0 4-06 00:00: 00 No Dose Unknown 0 4-06 00:00: 00 No Dose Unknown 0 4-06 00:00: 00 No levothyroxi ne 137 mcg tablet 0 -06 00:00: 00 No 1mcg VENLAFAXINE HCL 100 MG TABS 0 3-30 00:00: 00 Yes Cristian So Jerman RISPERIDONE 2MG Tablets 0 330 00:00: 00 Yes Cristian Saray Jerman PROPRANOLOL HYDROCHLORI DE 20 MG TABS 0 30 00:00: 00 Yes Cristian Stoll ONDANSETRON 4MG ODT Tablets - 00:00: 00 Yes Cristian Stoll CLONAZEPAM 1 MG TABS - 00:00: 00 Yes Cristian Stoll ZOLPIDEM 10MG Tablets 3-16 00:00: 00 Yes Cristian Stoll Dose Unknown 04-05 00:00: 00 Yes Cristian Stoll Dose Unknown 04-05 00:00: 00 Yes Cristian Stoll losartan 100 mg-hydrochl orothiazide 25 mg tablet 04-05 00:00: 00 No 1mg levothyroxi ne 137 mcg tablet 04-05 00:00: 00 No 1mcg losartan 100 mg-hydrochl orothiazide 25 mg tablet 04-05 00:00: 00 No 1mg levothyroxi ne 137 mcg tablet 04-05 00:00: 00 No 1mcg losartan 100 mg-hydrochl orothiazide 25 mg tablet 04-05 00:00: 00 No 1mg levothyroxi ne 137 mcg tablet 04-05 00:00: 00 No 1mcg losartan 100 mg-hydrochl orothiazide 25 mg tablet 04-05 00:00: 00 No 1mg levothyroxi ne 137 mcg tablet 04-05 00:00: 00 No 1mcg Dose Unknown 2020-03 2 00:00: 00 Yes Cristian Stoll Dose Unknown 2020-03 2- 00:00: 00 No Dose Unknown 2020-03 2- 00:00: 00 No Dose Unknown 2020-03 2 00:00: 00 No Dose Unknown 2020-03 2 00:00: 00 No losartan 100 mg-hydrochl orothiazide 25 mg tablet 2020-03 0 00:00: 00 Yes 1mg Cristian Stoll Dose Unknown 2020-03 0 00:00: 00 Yes Cristian Stoll levothyroxi ne 137 mcg tablet 2020-03 00:00: 00 Yes 1mcg Cristian Stoll losartan 100 mg-hydrochl orothiazide 25 mg tablet 2020-03 0 00:00: 00 No 1mg Dose Unknown 2020-03 00:00: 00 No levothyroxi ne 137 mcg tablet 2020-03 00:00: 00 No 1mcg losartan 100 mg-hydrochl orothiazide 25 mg tablet 2020-03 00:00: 00 No 1mg Dose Unknown 2020-03 00:00: 00 No levothyroxi ne 137 mcg tablet 2020-03 00:00: 00 No 1mcg losartan 100 mg-hydrochl orothiazide 25 mg tablet 2020-03 00:00: 00 No 1mg Dose Unknown 2020-03 00:00: 00 No levothyroxi ne 137 mcg tablet 2020-03 00:00: 00 No 1mcg losartan 100 mg-hydrochl orothiazide 25 mg tablet 2020-03 00:00: 00 No 1mg Dose Unknown 2020-03 00:00: 00 No levothyroxi ne 137 mcg tablet 2020-03 00:00: 00 No 1mcg Dose Unknown 11-23 00:00: 00 Yes Cristian Stoll levothyroxi ne 137 mcg tablet 11-23 00:00: 00 No 1mcg levothyroxi ne 137 mcg tablet 11-23 00:00: 00 No 1mcg levothyroxi ne 137 mcg tablet 11-23 00:00: 00 No 1mcg levothyroxi ne 137 mcg tablet 11-23 00:00: 00 No 1mcg Dose Unknown 11-02 00:00: 00 Yes Cristian Stoll levothyroxi ne 137 mcg tablet 11-02 00:00: 00 No 1mcg levothyroxi ne 137 mcg tablet 0 11-02 00:00: 00 No 1mcg levothyroxi ne 137 mcg tablet 11-02 00:00: 00 No 1mcg levothyroxi ne 137 mcg tablet 11-02 00:00: 00 No 1mcg liothyronin e 5 mcg tablet 11-01 00:00: 00 Yes 1mcg Cristian Stoll liothyronin e 5 mcg tablet 11-01 00:00: 00 No 1mcg liothyronin e 5 mcg tablet 11-01 00:00: 00 No 1mcg liothyronin e 5 mcg tablet 11-01 00:00: 00 No 1mcg liothyronin e 5 mcg tablet 11-01 00:00: 00 No 1mcg losartan 100 mg-hydrochl orothiazide 25 mg tablet 10-25 00:00: 00 Yes 1mg Cristian Stoll losartan 100 mg-hydrochl orothiazide 25 mg tablet 10-25 00:00: 00 No 1mg losartan 100 mg-hydrochl orothiazide 25 mg tablet 10-25 00:00: 00 No 1mg losartan 100 mg-hydrochl orothiazide 25 mg tablet 10-25 00:00: 00 No 1mg losartan 100 mg-hydrochl orothiazide 25 mg tablet 10-25 00:00: 00 No 1mg fenofibrate 160 mg tablet 10-08 00:00: 00 Yes 1mg Cristian Stoll Dose Unknown 10-08 00:00: 00 Yes Cristian Stoll Dose Unknown 10-08 00:00: 00 Yes Cristian Stoll Dose Unknown 10-08 00:00: 00 Yes Cristian Stoll cetirizine 10 mg tablet 10-08 00:00: 00 No 1mg fenofibrate 160 mg tablet 10-08 00:00: 00 No 1mg fluticasone propionate 50 mcg/actuati on nasal spray,suspe nsion 10-08 00:00: 00 No 2mcg/ac tuation Tessalon Perles 100 mg capsule 10-08 00:00: 00 No 1mg cetirizine 10 mg tablet 10-08 00:00: 00 No 1mg fenofibrate 160 mg tablet 10-08 00:00: 00 No 1mg fluticasone propionate 50 mcg/actuati on nasal spray,suspe nsion 10-08 00:00: 00 No 2mcg/ac tuation Tessalon Perles 100 mg capsule 10-08 00:00: 00 No 1mg cetirizine 10 mg tablet 10-08 00:00: 00 No 1mg fenofibrate 160 mg tablet 10-08 00:00: 00 No 1mg fluticasone propionate 50 mcg/actuati on nasal spray,suspe nsion 10-08 00:00: 00 No 2mcg/ac tuation Tessalon Perles 100 mg capsule 10-08 00:00: 00 No 1mg cetirizine 10 mg tablet 10-08 00:00: 00 No 1mg fenofibrate 160 mg tablet 10-08 00:00: 00 No 1mg fluticasone propionate 50 mcg/actuati on nasal spray,suspe nsion 10-08 00:00: 00 No 2mcg/ac tuation Tessalon Perles 100 mg capsule 10-08 00:00: 00 No 1mg ezetimibe 10 mg tablet 10-02 00:00: 00 Yes 1mg Cristian Stoll losartan 100 mg-hydrochl orothiazide 25 mg tablet 10-02 00:00: 00 Yes 1mg Cristian Stoll clonidine HCl 0.3 mg tablet 10-02 00:00: 00 Yes 1mg Cristian Stoll liothyronin e 5 mcg tablet 10-02 00:00: 00 Yes 1mcg Cristian Stoll ezetimibe 10 mg tablet 10-02 00:00: 00 No 1mg losartan 100 mg-hydrochl orothiazide 25 mg tablet 10-02 00:00: 00 No 1mg clonidine HCl 0.3 mg tablet 10-02 00:00: 00 No 1mg liothyronin e 5 mcg tablet 10-02 00:00: 00 No 1mcg ezetimibe 10 mg tablet 10-02 00:00: 00 No 1mg losartan 100 mg-hydrochl orothiazide 25 mg tablet 10-02 00:00: 00 No 1mg clonidine HCl 0.3 mg tablet 10-02 00:00: 00 No 1mg liothyronin e 5 mcg tablet 10-02 00:00: 00 No 1mcg ezetimibe 10 mg tablet 10-02 00:00: 00 No 1mg losartan 100 mg-hydrochl orothiazide 25 mg tablet 10-02 00:00: 00 No 1mg clonidine HCl 0.3 mg tablet 10-02 00:00: 00 No 1mg liothyronin e 5 mcg tablet 10-02 00:00: 00 No 1mcg ezetimibe 10 mg tablet 10-02 00:00: 00 No 1mg losartan 100 mg-hydrochl orothiazide 25 mg tablet 10-02 00:00: 00 No 1mg clonidine HCl 0.3 mg tablet 10-02 00:00: 00 No 1mg liothyronin e 5 mcg tablet 10-02 00:00: 00 No 1mcg levothyroxi ne 137 mcg tablet 09-24 00:00: 00 Yes 1mcg Cristian Stoll levothyroxi ne 137 mcg tablet 09-24 00:00: 00 No 1mcg levothyroxi ne 137 mcg tablet 09-24 00:00: 00 No 1mcg levothyroxi ne 137 mcg tablet 09-24 00:00: 00 No 1mcg levothyroxi ne 137 mcg tablet 09-24 00:00: 00 No 1mcg TAKE 1 TAB EVERY 8 HOURS NEEDED FOR SYSTOLIC BLOOD PRESSURE GREATER THAN 160 07-10 00:00: 00 Yes Cristianca Stoll ezetimibe 10 mg tablet 07-10 00:00: 00 Yes 1mg Cristian Stoll losartan 100 mg-hydrochl orothiazide 25 mg tablet 07-10 00:00: 00 Yes 1mg Cristian Saray Jerman liothyronin e 5 mcg tablet 07-10 00:00: 00 Yes 1mcg Cristian Saray Jerman levothyroxi ne 137 mcg tablet 07-10 00:00: 00 Yes 1mcg Cristian Saray Stoll Dose Unknown 07-10 00:00: 00 No ezetimibe 10 mg tablet 07-10 00:00: 00 No 1mg losartan 100 mg-hydrochl orothiazide 25 mg tablet 07-10 00:00: 00 No 1mg liothyronin e 5 mcg tablet 07-10 00:00: 00 No 1mcg levothyroxi ne 137 mcg tablet 07-10 00:00: 00 No 1mcg clonidine HCl 0.2 mg tablet 07-10 00:00: 00 No 1mg ezetimibe 10 mg tablet 07-10 00:00: 00 No 1mg losartan 100 mg-hydrochl orothiazide 25 mg tablet 07-10 00:00: 00 No 1mg liothyronin e 5 mcg tablet 07-10 00:00: 00 No 1mcg levothyroxi ne 137 mcg tablet 07-10 00:00: 00 No 1mcg Dose Unknown 07-10 00:00: 00 No ezetimibe 10 mg tablet 07-10 00:00: 00 No 1mg losartan 100 mg-hydrochl orothiazide 25 mg tablet 07-10 00:00: 00 No 1mg liothyronin e 5 mcg tablet 07-10 00:00: 00 No 1mcg levothyroxi ne 137 mcg tablet 07-10 00:00: 00 No 1mcg Dose Unknown 07-10 00:00: 00 No ezetimibe 10 mg tablet 07-10 00:00: 00 No 1mg losartan 100 mg-hydrochl orothiazide 25 mg tablet 07-10 00:00: 00 No 1mg liothyronin e 5 mcg tablet 07-10 00:00: 00 No 1mcg levothyroxi ne 137 mcg tablet 07-10 00:00: 00 No 1mcg clonidine HCl 0.2 mg tablet 06-14 00:00: 00 Yes 1mg Cristian F Jerman clonidine HCl 0.2 mg tablet 06-14 00:00: 00 No 1mg clonidine HCl 0.2 mg tablet 2021-0 4-08 00:00: 00 No 1mg clonidine HCl 0.2 mg tablet 0 4-08 00:00: 00 No 1mg clonidine HCl 0.2 mg tablet 0 4-08 00:00: 00 No 1mg ezetimibe 10 mg tablet 0 -17 00:00: 00 Yes 1mg Cristian Stoll liothyronin e 5 mcg tablet 0 3-17 00:00: 00 Yes 1mcg Cristian Stoll levothyroxi ne 137 mcg tablet 0 05-23 00:00: 00 Yes 1mcg Cristian Stoll ezetimibe 10 mg tablet 0 317 00:00: 00 No 1mg ezetimibe 10 mg tablet 0 05-23 00:00: 00 No 1mg liothyronin e 5 mcg tablet 0 05-23 00:00: 00 No 1mcg levothyroxi ne 137 mcg tablet 0 05-23 00:00: 00 No 1mcg liothyronin e 5 mcg tablet 0 05-23 00:00: 00 No 1mcg levothyroxi ne 137 mcg tablet 0 05-23 00:00: 00 No 1mcg ezetimibe 10 mg tablet 0 05-23 00:00: 00 No 1mg liothyronin e 5 mcg tablet 0 05-23 00:00: 00 No 1mcg levothyroxi ne 137 mcg tablet 0 05-23 00:00: 00 No 1mcg ezetimibe 10 mg tablet 0 05-23 00:00: 00 No 1mg liothyronin e 5 mcg tablet 0 -17 00:00: 00 No 1mcg levothyroxi ne 137 mcg tablet 0 -17 00:00: 00 No 1mcg losartan 100 mg-hydrochl orothiazide 25 mg tablet 0 3-16 00:00: 00 Yes 1mg Cristian Stoll levothyroxi ne 125 mcg tablet 0 3-16 00:00: 00 Yes 1mcg Cristian Stoll liothyronin e 5 mcg tablet 0 3-16 00:00: 00 Yes 1mcg Cristian Stoll losartan 100 mg-hydrochl orothiazide 25 mg tablet 16 00:00: 00 No 1mg levothyroxi ne 125 mcg tablet 16 00:00: 00 No 1mcg liothyronin e 5 mcg tablet 16 00:00: 00 No 1mcg losartan 100 mg-hydrochl orothiazide 25 mg tablet 16 00:00: 00 No 1mg levothyroxi ne 125 mcg tablet 16 00:00: 00 No 1mcg liothyronin e 5 mcg tablet 05-22 00:00: 00 No 1mcg losartan 100 mg-hydrochl orothiazide 25 mg tablet 05-22 00:00: 00 No 1mg levothyroxi ne 125 mcg tablet 05-22 00:00: 00 No 1mcg liothyronin e 5 mcg tablet 05-22 00:00: 00 No 1mcg losartan 100 mg-hydrochl orothiazide 25 mg tablet 05-22 00:00: 00 No 1mg levothyroxi ne 125 mcg tablet 16 00:00: 00 No 1mcg liothyronin e 5 mcg tablet 16 00:00: 00 No 1mcg sulfamethox azole 800 mg-trimetho prim 160 mg tablet 03-22 00:00: 00 Yes 1mg Cristian Saray Jerman ondansetron 8 mg disintegrat ing tablet 14 00:00: 00 Yes 1mg Cristian Stoll sulfamethox azole 800 mg-trimetho prim 160 mg tablet 14 00:00: 00 No 1mg ondansetron 8 mg disintegrat ing tablet 14 00:00: 00 No 1mg sulfamethox azole 800 mg-trimetho prim 160 mg tablet 03-22 00:00: 00 No 1mg ondansetron 8 mg disintegrat ing tablet 03-22 00:00: 00 No 1mg sulfamethox azole 800 mg-trimetho prim 160 mg tablet 03-22 00:00: 00 No 1mg ondansetron 8 mg disintegrat ing tablet 03-22 00:00: 00 No 1mg sulfamethox azole 800 mg-trimetho prim 160 mg tablet 03-22 00:00: 00 No 1mg ondansetron 8 mg disintegrat ing tablet 03-22 00:00: 00 No 1mg amoxicillin 875 mg-potassiu m clavulanate 125 mg tablet 03-13 00:00: 00 Yes 1mg Cristian Stoll liothyronin e 5 mcg tablet 03-13 00:00: 00 Yes 1mcg Cristian Stoll levothyroxi ne 125 mcg tablet 03-13 00:00: 00 Yes 1mcg Cristian Stoll indomethaci n 50 mg capsule 03-13 00:00: 00 Yes 1mg Cristian Stoll amoxicillin 875 mg-potassiu m clavulanate 125 mg tablet 03-13 00:00: 00 No 1mg liothyronin e 5 mcg tablet 03-13 00:00: 00 No 1mcg levothyroxi ne 125 mcg tablet 03-13 00:00: 00 No 1mcg indomethaci n 50 mg capsule 03-13 00:00: 00 No 1mg amoxicillin 875 mg-potassiu m clavulanate 125 mg tablet 03-13 00:00: 00 No 1mg liothyronin e 5 mcg tablet 03-13 00:00: 00 No 1mcg levothyroxi ne 125 mcg tablet 03-13 00:00: 00 No 1mcg indomethaci n 50 mg capsule 03-13 00:00: 00 No 1mg amoxicillin 875 mg-potassiu m clavulanate 125 mg tablet 03-13 00:00: 00 No 1mg liothyronin e 5 mcg tablet 03-13 00:00: 00 No 1mcg levothyroxi ne 125 mcg tablet 03-13 00:00: 00 No 1mcg indomethaci n 50 mg capsule 03-13 00:00: 00 No 1mg amoxicillin 875 mg-potgeremiasiu m clavulanate 125 mg tablet 03-13 00:00: 00 No 1mg liothyronin e 5 mcg tablet 03-13 00:00: 00 No 1mcg levothyroxi ne 125 mcg tablet 03-13 00:00: 00 No 1mcg indomethaci n 50 mg capsule 03-13 00:00: 00 No 1mg metformin ER 500 mg tablet,exte nded release 24 hr 2019-03 00:00: 00 Yes 1mg Cristian Stoll metformin ER 500 mg tablet,exte nded release 24 hr 2019-03 00:00: 00 No 1mg metformin ER 500 mg tablet,exte nded release 24 hr 2019-03 00:00: 00 No 1mg metformin ER 500 mg tablet,exte nded release 24 hr 2019-03 00:00: 00 No 1mg metformin ER 500 mg tablet,exte nded release 24 hr 2019-03 00:00: 00 No 1mg clonidine HCl 0.2 mg tablet 2019-03 00:00: 00 Yes 1mg Cristian Stoll losartan 100 mg-hydrochl orothiazide 25 mg tablet 2019-03 00:00: 00 Yes 1mg Cristian Stoll clonidine HCl 0.2 mg tablet 2019-03 00:00: 00 No 1mg losartan 100 mg-hydrochl orothiazide 25 mg tablet 2019-03 00:00: 00 No 1mg clonidine HCl 0.2 mg tablet 2019-03 00:00: 00 No 1mg losartan 100 mg-hydrochl orothiazide 25 mg tablet 2019-03 00:00: 00 No 1mg clonidine HCl 0.2 mg tablet 2019-03 00:00: 00 No 1mg losartan 100 mg-hydrochl orothiazide 25 mg tablet 2019-03 00:00: 00 No 1mg clonidine HCl 0.2 mg tablet 2019-03 00:00: 00 No 1mg losartan 100 mg-hydrochl orothiazide 25 mg tablet 2019-03 00:00: 00 No 1mg ondansetron 4 mg disintegrat ing tablet 2020-1 2-04 00:00: 00 Yes 1mg Cristian Stoll levothyroxi ne 125 mcg tablet 2019-03 2-04 00:00: 00 Yes 1mcg Cristian Stoll liothyronin e 5 mcg tablet 2019-03 2-04 00:00: 00 Yes 1mcg Cristian Stoll ondansetron 4 mg disintegrat ing tablet 2019-03 2- 00:00: 00 No 1mg levothyroxi ne 125 mcg tablet 2019-03 2- 00:00: 00 No 1mcg liothyronin e 5 mcg tablet 2019-03 2- 00:00: 00 No 1mcg ondansetron 4 mg disintegrat ing tablet 2019-03 2- 00:00: 00 No 1mg levothyroxi ne 125 mcg tablet 2019-03 2- 00:00: 00 No 1mcg liothyronin e 5 mcg tablet 2019-03 2- 00:00: 00 No 1mcg ondansetron 4 mg disintegrat ing tablet 2019-03 2- 00:00: 00 No 1mg levothyroxi ne 125 mcg tablet 2019-03 2- 00:00: 00 No 1mcg liothyronin e 5 mcg tablet 2019-03 2- 00:00: 00 No 1mcg ondansetron 4 mg disintegrat ing tablet 2019-03 2- 00:00: 00 No 1mg levothyroxi ne 125 mcg tablet 2019-03 2- 00:00: 00 No 1mcg liothyronin e 5 mcg tablet 2019-03 2- 00:00: 00 No 1mcg levothyroxi ne 125 mcg tablet 2019-03 0-08 00:00: 00 Yes 1mcg Cristina Stoll liothyronin e 5 mcg tablet 2019-03 0-08 00:00: 00 Yes 1mcg Cristian Stoll levothyroxi ne 125 mcg tablet 2019-03 0-08 00:00: 00 No 1mcg liothyronin e 5 mcg tablet 2019-03 0-08 00:00: 00 No 1mcg levothyroxi ne 125 mcg tablet 2019-03 0-08 00:00: 00 No 1mcg liothyronin e 5 mcg tablet 2019-03 0-08 00:00: 00 No 1mcg levothyroxi ne 125 mcg tablet 2019-03 00:00: 00 No 1mcg liothyronin e 5 mcg tablet 2019-03 00:00: 00 No 1mcg levothyroxi ne 125 mcg tablet 2019-03 00:00: 00 No 1mcg liothyronin e 5 mcg tablet 2019-03 00:00: 00 No 1mcg losartan 100 mg-hydrochl orothiazide 25 mg tablet 11-24 00:00: 00 Yes 1mg Cristian Stoll metformin ER 500 mg tablet,exte nded release 24 hr 11-24 00:00: 00 Yes 1mg Cristian Stoll losartan 100 mg-hydrochl orothiazide 25 mg tablet 11-24 00:00: 00 No 1mg metformin ER 500 mg tablet,exte nded release 24 hr 11-24 00:00: 00 No 1mg losartan 100 mg-hydrochl orothiazide 25 mg tablet 11-24 00:00: 00 No 1mg metformin ER 500 mg tablet,exte nded release 24 hr 11-24 00:00: 00 No 1mg losartan 100 mg-hydrochl orothiazide 25 mg tablet 11-24 00:00: 00 No 1mg metformin ER 500 mg tablet,exte nded release 24 hr 11-24 00:00: 00 No 1mg losartan 100 mg-hydrochl orothiazide 25 mg tablet 11-24 00:00: 00 No 1mg metformin ER 500 mg tablet,exte nded release 24 hr 11-24 00:00: 00 No 1mg liothyronin e 5 mcg tablet 11-10 00:00: 00 Yes 1mcg Cristian Stoll levothyroxi ne 137 mcg tablet 11-10 00:00: 00 Yes 1mcg Cristian Stoll liothyronin e 5 mcg tablet 11-10 00:00: 00 No 1mcg levothyroxi ne 137 mcg tablet 11-10 00:00: 00 No 1mcg liothyronin e 5 mcg tablet 11-10 00:00: 00 No 1mcg levothyroxi ne 137 mcg tablet 11-10 00:00: 00 No 1mcg liothyronin e 5 mcg tablet 2019-0 11-10 00:00: 00 No 1mcg levothyroxi ne 137 mcg tablet 0 11-10 00:00: 00 No 1mcg liothyronin e 5 mcg tablet 0 11-10 00:00: 00 No 1mcg levothyroxi ne 137 mcg tablet 0 11-10 00:00: 00 No 1mcg amoxicillin 500 mg capsule 2019-0 - 00:00: 00 Yes 1mg Cristian Stoll amoxicillin 500 mg capsule 0 09-15 00:00: 00 No 1mg amoxicillin 500 mg capsule 0 09-15 00:00: 00 No 1mg amoxicillin 500 mg capsule 2019-0 09-15 00:00: 00 No 1mg amoxicillin 500 mg capsule 2019-0 09-15 00:00: 00 No 1mg liothyronin e 5 mcg tablet 0 06-02 00:00: 00 Yes 1mcg Cristianca Stoll levothyroxi ne 137 mcg tablet 0 06-02 00:00: 00 Yes 1mcg Cristian Stoll liothyronin e 5 mcg tablet 0 06-02 00:00: 00 No 1mcg levothyroxi ne 137 mcg tablet 0 06-02 00:00: 00 No 1mcg liothyronin e 5 mcg tablet 0 06-02 00:00: 00 No 1mcg levothyroxi ne 137 mcg tablet 0 06-02 00:00: 00 No 1mcg liothyronin e 5 mcg tablet 0 3 00:00: 00 No 1mcg levothyroxi ne 137 mcg tablet 0 06-02 00:00: 00 No 1mcg liothyronin e 5 mcg tablet 0 06-02 00:00: 00 No 1mcg levothyroxi ne 137 mcg tablet 0 06-02 00:00: 00 No 1mcg metformin ER 500 mg tablet,exte nded release 24 hr 0 06-01 00:00: 00 Yes mg Cristian Stoll losartan 100 mg-hydrochl orothiazide 25 mg tablet 2019-0 3- 00:00: 00 Yes 1mg Cristian Saray Stoll clonidine HCl 0.2 mg tablet 06-01 00:00: 00 Yes 1mg Cristian Stoll Zofran 4 mg tablet 06-01 00:00: 00 Yes 1mg Cristian Stoll Trileptal 600 mg tablet 06-01 00:00: 00 Yes 1mg Cristian Stoll liothyronin e 5 mcg tablet 06-01 00:00: 00 Yes 1mcg Cristian Stoll levothyroxi ne 137 mcg tablet 06-01 00:00: 00 Yes 1mcg Cristian Stoll Dose Unknown 06-01 00:00: 00 Yes Cristian Stoll Dose Unknown 06-01 00:00: 00 Yes Cristian Stoll Dose Unknown 06-01 00:00: 00 Yes Cristian Stoll omeprazole 40 mg capsule,del ayed release 06-01 00:00: 00 Yes 1mg Cristian Stoll Linzess 145 mcg capsule 06-01 00:00: 00 Yes 1mcg Cristian Stoll metformin ER 500 mg tablet,exte nded release 24 hr 06-01 00:00: 00 No mg paroxetine 40 mg tablet 06-01 00:00: 00 No 1mg losartan 100 mg-hydrochl orothiazide 25 mg tablet 06-01 00:00: 00 No 1mg clonidine HCl 0.2 mg tablet 06-01 00:00: 00 No 1mg Zofran 4 mg tablet 06-01 00:00: 00 No 1mg Trileptal 600 mg tablet 06-01 00:00: 00 No 1mg trazodone 100 mg tablet 06-01 00:00: 00 No 1mg baclofen 10 mg tablet 06-01 00:00: 00 No 1mg liothyronin e 5 mcg tablet 06-01 00:00: 00 No 1mcg levothyroxi ne 137 mcg tablet 06-01 00:00: 00 No 1mcg omeprazole 40 mg capsule,del ayed release 06-01 00:00: 00 No 1mg Linzess 145 mcg capsule 06-01 00:00: 00 No 1mcg metformin ER 500 mg tablet,exte nded release 24 hr 06-01 00:00: 00 No mg paroxetine 40 mg tablet 06-01 00:00: 00 No 1mg losartan 100 mg-hydrochl orothiazide 25 mg tablet 06-01 00:00: 00 No 1mg clonidine HCl 0.2 mg tablet 06-01 00:00: 00 No 1mg Zofran 4 mg tablet 06-01 00:00: 00 No 1mg Trileptal 600 mg tablet 06-01 00:00: 00 No 1mg trazodone 100 mg tablet 06-01 00:00: 00 No 1mg baclofen 10 mg tablet 06-01 00:00: 00 No 1mg liothyronin e 5 mcg tablet 06-01 00:00: 00 No 1mcg levothyroxi ne 137 mcg tablet 06-01 00:00: 00 No 1mcg omeprazole 40 mg capsule,del ayed release 06-01 00:00: 00 No 1mg Linzess 145 mcg capsule 06-01 00:00: 00 No 1mcg metformin ER 500 mg tablet,exte nded release 24 hr 06-01 00:00: 00 No mg paroxetine 40 mg tablet 06-01 00:00: 00 No 1mg losartan 100 mg-hydrochl orothiazide 25 mg tablet 06-01 00:00: 00 No 1mg clonidine HCl 0.2 mg tablet 06-01 00:00: 00 No 1mg Zofran 4 mg tablet 06-01 00:00: 00 No 1mg Trileptal 600 mg tablet 06-01 00:00: 00 No 1mg trazodone 100 mg tablet 06-01 00:00: 00 No 1mg baclofen 10 mg tablet 06-01 00:00: 00 No 1mg liothyronin e 5 mcg tablet 06-01 00:00: 00 No 1mcg levothyroxi ne 137 mcg tablet 06-01 00:00: 00 No 1mcg omeprazole 40 mg capsule,del ayed release 06-01 00:00: 00 No 1mg Linzess 145 mcg capsule 06-01 00:00: 00 No 1mcg metformin ER 500 mg tablet,exte nded release 24 hr 06-01 00:00: 00 No mg paroxetine 40 mg tablet 06-01 00:00: 00 No 1mg losartan 100 mg-hydrochl orothiazide 25 mg tablet 06-01 00:00: 00 No 1mg clonidine HCl 0.2 mg tablet 06-01 00:00: 00 No 1mg Zofran 4 mg tablet 06-01 00:00: 00 No 1mg Trileptal 600 mg tablet 06-01 00:00: 00 No 1mg trazodone 100 mg tablet 06-01 00:00: 00 No 1mg baclofen 10 mg tablet 06-01 00:00: 00 No 1mg liothyronin e 5 mcg tablet 06-01 00:00: 00 No 1mcg levothyroxi ne 137 mcg tablet 06-01 00:00: 00 No 1mcg omeprazole 40 mg capsule,del ayed release 06-01 00:00: 00 No 1mg Linzess 145 mcg capsule 06-01 00:00: 00 No 1mcg ondansetron HCl 4 mg tablet 05-31 00:00: 00 Yes mg Cristian Stoll ondansetron HCl 4 mg tablet 05-31 00:00: 00 No mg ondansetron HCl 4 mg tablet 05-31 00:00: 00 No mg ondansetron HCl 4 mg tablet 05-31 00:00: 00 No mg ondansetron HCl 4 mg tablet 05-31 00:00: 00 No mg risperidone 1 mg tablet 05-26 00:00: 00 Yes mg Cristian Stoll risperidone 1 mg tablet 05-26 00:00: 00 No mg risperidone 1 mg tablet 05-26 00:00: 00 No mg risperidone 1 mg tablet 05-26 00:00: 00 No mg risperidone 1 mg tablet 05-26 00:00: 00 No mg losartan 100 mg-hydrochl orothiazide 25 mg tablet 03-30 00:00: 00 Yes 1mg Cristian F Jerman pantoprazol e 40 mg tablet,mali yed release 03-30 00:00: 00 Yes 1mg Cristian Stoll clonidine HCl 0.2 mg tablet 03-30 00:00: 00 Yes 1mg Cristian Stoll metformin ER 500 mg tablet,exte nded release 24 hr 03-30 00:00: 00 Yes 1mg Cristian Stoll levothyroxi ne 137 mcg tablet 03-30 00:00: 00 Yes 1mcg Cristian Stoll liothyronin e 5 mcg tablet 03-30 00:00: 00 Yes 1mcg Cristian Stoll omeprazole 20 mg capsule,del ayed release 03-30 00:00: 00 Yes 1mg Cristian Stoll losartan 100 mg-hydrochl orothiazide 25 mg tablet 03-30 00:00: 00 No 1mg pantoprazol e 40 mg tablet,mali yed release 03-30 00:00: 00 No 1mg clonidine HCl 0.2 mg tablet 03-30 00:00: 00 No 1mg metformin ER 500 mg tablet,exte nded release 24 hr 03-30 00:00: 00 No 1mg levothyroxi ne 137 mcg tablet 03-30 00:00: 00 No 1mcg liothyronin e 5 mcg tablet 03-30 00:00: 00 No 1mcg omeprazole 20 mg capsule,del ayed release 03-30 00:00: 00 No 1mg losartan 100 mg-hydrochl orothiazide 25 mg tablet 03-30 00:00: 00 No 1mg pantoprazol e 40 mg tablet,mali yed release 03-30 00:00: 00 No 1mg clonidine HCl 0.2 mg tablet 03-30 00:00: 00 No 1mg metformin ER 500 mg tablet,exte nded release 24 hr 03-30 00:00: 00 No 1mg levothyroxi ne 137 mcg tablet 03-30 00:00: 00 No 1mcg liothyronin e 5 mcg tablet 03-30 00:00: 00 No 1mcg omeprazole 20 mg capsule,del ayed release 03-30 00:00: 00 No 1mg losartan 100 mg-hydrochl orothiazide 25 mg tablet 03-30 00:00: 00 No 1mg losartan 100 mg-hydrochl orothiazide 25 mg tablet 03-30 00:00: 00 No 1mg pantoprazol e 40 mg tablet,mali yed release 03-30 00:00: 00 No 1mg clonidine HCl 0.2 mg tablet 03-30 00:00: 00 No 1mg metformin ER 500 mg tablet,exte nded release 24 hr 03-30 00:00: 00 No 1mg levothyroxi ne 137 mcg tablet 03-30 00:00: 00 No 1mcg pantoprazol e 40 mg tablet,mali yed release 03-30 00:00: 00 No 1mg liothyronin e 5 mcg tablet 03-30 00:00: 00 No 1mcg omeprazole 20 mg capsule,del ayed release 03-30 00:00: 00 No 1mg clonidine HCl 0.2 mg tablet 03-30 00:00: 00 No 1mg metformin ER 500 mg tablet,exte nded release 24 hr 03-30 00:00: 00 No 1mg levothyroxi ne 137 mcg tablet 03-30 00:00: 00 No 1mcg liothyronin e 5 mcg tablet 03-30 00:00: 00 No 1mcg omeprazole 20 mg capsule,del ayed release 03-30 00:00: 00 No 1mg levothyroxi ne 137 mcg tablet 2018-03 00:00: 00 Yes 1mcg Cristian Stoll levothyroxi ne 137 mcg tablet 2018-03 00:00: 00 No 1mcg levothyroxi ne 137 mcg tablet 2018-03 00:00: 00 No 1mcg levothyroxi ne 137 mcg tablet 2018-03 00:00: 00 No 1mcg levothyroxi ne 137 mcg tablet 2018-03 00:00: 00 No 1mcg Flagyl 500 mg tablet 2018-03 00:00: 00 Yes 1mg Cristian Stoll Flagyl 500 mg tablet 2018-03 00:00: 00 No 1mg Flagyl 500 mg tablet 2018-03 00:00: 00 No 1mg Flagyl 500 mg tablet 2018-03 00:00: 00 No 1mg Flagyl 500 mg tablet 2018-03 00:00: 00 No 1mg Premarin 0.625 mg tablet 2018-03 00:00: 00 Yes 1mg Cristian Stoll Premarin 0.625 mg tablet 2018-03 00:00: 00 No 1mg Premarin 0.625 mg tablet 2018-03 00:00: 00 No 1mg Premarin 0.625 mg tablet 2018-03 00:00: 00 No 1mg Premarin 0.625 mg tablet 2018-03 00:00: 00 No 1mg metformin ER 500 mg tablet,exte nded release 24 hr 11-30 00:00: 00 Yes 1mg Cristian Stoll levothyroxi ne 137 mcg tablet 11-30 00:00: 00 Yes 1mcg Cristian Stoll metformin ER 500 mg tablet,exte nded release hr 11-30 00:00: 00 No 1mg levothyroxi ne 137 mcg tablet 11-30 00:00: 00 No 1mcg metformin ER 500 mg tablet,exte nded release 24 hr 11-30 00:00: 00 No 1mg levothyroxi ne 137 mcg tablet 11-30 00:00: 00 No 1mcg metformin ER 500 mg tablet,exte nded release 24 hr 11-30 00:00: 00 No 1mg levothyroxi ne 137 mcg tablet 11-30 00:00: 00 No 1mcg metformin ER 500 mg tablet,exte nded release 24 hr 11-30 00:00: 00 No 1mg levothyroxi ne 137 mcg tablet 11-30 00:00: 00 No 1mcg levothyroxi ne 137 mcg tablet 11-23 00:00: 00 Yes 1mcg Cristian Stoll levothyroxi ne 137 mcg tablet 11-23 00:00: 00 No 1mcg levothyroxi ne 137 mcg tablet 11-23 00:00: 00 No 1mcg levothyroxi ne 137 mcg tablet 11-23 00:00: 00 No 1mcg levothyroxi ne 137 mcg tablet 11-23 00:00: 00 No 1mcg Zofran 4 mg tablet 10-22 00:00: 00 Yes 1mg Cristian Stoll Cipro 500 mg tablet 10-22 00:00: 00 Yes 1mg Cristian Stoll Zofran 4 mg tablet 10-22 00:00: 00 No 1mg Cipro 500 mg tablet 10-22 00:00: 00 No 1mg Zofran 4 mg tablet 10-22 00:00: 00 No 1mg Cipro 500 mg tablet 10-22 00:00: 00 No 1mg Zofran 4 mg tablet 10-22 00:00: 00 No 1mg Cipro 500 mg tablet 10-22 00:00: 00 No 1mg Zofran 4 mg tablet 10-22 00:00: 00 No 1mg Cipro 500 mg tablet 10-22 00:00: 00 No 1mg Zofran 4 mg tablet 09-21 00:00: 00 Yes 1mg Cristian Stoll Macrobid 100 mg capsule 09-21 00:00: 00 Yes 1mg Cristian Stoll Zofran 4 mg tablet 09-21 00:00: 00 No 1mg Macrobid 100 mg capsule 09-21 00:00: 00 No 1mg Zofran 4 mg tablet 09-21 00:00: 00 No 1mg Macrobid 100 mg capsule 09-21 00:00: 00 No 1mg Zofran 4 mg tablet 09-21 00:00: 00 No 1mg Macrobid 100 mg capsule 09-21 00:00: 00 No 1mg Zofran 4 mg tablet 09-21 00:00: 00 No 1mg Macrobid 100 mg capsule 09-21 00:00: 00 No 1mg pantoprazol e 40 mg tablet,mali yed release 08-16 00:00: 00 Yes 1mg Cristian Stoll clonidine HCl 0.2 mg tablet 08-16 00:00: 00 Yes 1mg Cristian Stoll metformin ER 500 mg tablet,exte nded release 24 hr 08-16 00:00: 00 Yes 1mg Cristian Stoll levothyroxi ne 137 mcg tablet 08-16 00:00: 00 Yes 1mcg Cristian Stoll pantoprazol e 40 mg tablet,mali yed release 08-16 00:00: 00 No 1mg clonidine HCl 0.2 mg tablet 08-16 00:00: 00 No 1mg metformin ER 500 mg tablet,exte nded release 24 hr 08-16 00:00: 00 No 1mg levothyroxi ne 137 mcg tablet 08-16 00:00: 00 No 1mcg pantoprazol e 40 mg tablet,mali yed release 08-16 00:00: 00 No 1mg clonidine HCl 0.2 mg tablet 08-16 00:00: 00 No 1mg metformin ER 500 mg tablet,exte nded release 24 hr 08-16 00:00: 00 No 1mg levothyroxi ne 137 mcg tablet 08-16 00:00: 00 No 1mcg pantoprazol e 40 mg tablet,mali yed release 08-16 00:00: 00 No 1mg clonidine HCl 0.2 mg tablet 08-16 00:00: 00 No 1mg metformin ER 500 mg tablet,exte nded release 24 hr 08-16 00:00: 00 No 1mg levothyroxi ne 137 mcg tablet 08-16 00:00: 00 No 1mcg pantoprazol e 40 mg tablet,mali yed release 08-16 00:00: 00 No 1mg clonidine HCl 0.2 mg tablet 08-16 00:00: 00 No 1mg metformin ER 500 mg tablet,exte nded release 24 hr 08-16 00:00: 00 No 1mg levothyroxi ne 137 mcg tablet 08-16 00:00: 00 No 1mcg ondansetron HCl 4 mg tablet 07-12 00:00: 00 Yes 1mg Cristian F Jerman ondansetron HCl 4 mg tablet 07-12 00:00: 00 No 1mg ondansetron HCl 4 mg tablet 07-12 00:00: 00 No 1mg ondansetron HCl 4 mg tablet 07-12 00:00: 00 No 1mg ondansetron HCl 4 mg tablet 07-12 00:00: 00 No 1mg oxybutynin chloride 5 mg tablet 06-07 00:00: 00 Yes 1mg Cristian Stoll ondansetron HCl 4 mg tablet 06-07 00:00: 00 Yes 1mg Cristian Stoll nitrofurant oin monohydrate /macrocryst als 100 mg capsule 06-07 00:00: 00 Yes 1mg Cristian Stoll oxybutynin chloride 5 mg tablet 06-07 00:00: 00 No 1mg ondansetron HCl 4 mg tablet 06-07 00:00: 00 No 1mg nitrofurant oin monohydrate /macrocryst als 100 mg capsule 06-07 00:00: 00 No 1mg oxybutynin chloride 5 mg tablet 06-07 00:00: 00 No 1mg ondansetron HCl 4 mg tablet 06-07 00:00: 00 No 1mg nitrofurant oin monohydrate /macrocryst als 100 mg capsule 06-07 00:00: 00 No 1mg oxybutynin chloride 5 mg tablet 06-07 00:00: 00 No 1mg ondansetron HCl 4 mg tablet 06-07 00:00: 00 No 1mg nitrofurant oin monohydrate /macrocryst als 100 mg capsule 06-07 00:00: 00 No 1mg oxybutynin chloride 5 mg tablet 06-07 00:00: 00 No 1mg ondansetron HCl 4 mg tablet 06-07 00:00: 00 No 1mg nitrofurant oin monohydrate /macrocryst als 100 mg capsule 06-07 00:00: 00 No 1mg sulfamethox azole 800 mg-trimetho prim 160 mg tablet 05-27 00:00: 00 Yes 1mg Cristian Stoll sulfamethox azole 800 mg-trimetho prim 160 mg tablet 05-27 00:00: 00 No 1mg sulfamethox azole 800 mg-trimetho prim 160 mg tablet 05-27 00:00: 00 No 1mg sulfamethox azole 800 mg-trimetho prim 160 mg tablet 05-27 00:00: 00 No 1mg sulfamethox azole 800 mg-trimetho prim 160 mg tablet 05-27 00:00: 00 No 1mg ondansetron HCl 4 mg tablet 05-24 00:00: 00 Yes 1mg Cristian Stoll ondansetron HCl 4 mg tablet 05-24 00:00: 00 No 1mg ondansetron HCl 4 mg tablet 05-24 00:00: 00 No 1mg ondansetron HCl 4 mg tablet 05-24 00:00: 00 No 1mg ondansetron HCl 4 mg tablet 05-24 00:00: 00 No 1mg cephalexin 500 mg capsule 05-18 00:00: 00 Yes 1mg Cristian Stoll cephalexin 500 mg capsule 05-18 00:00: 00 No 1mg cephalexin 500 mg capsule 05-18 00:00: 00 No 1mg cephalexin 500 mg capsule 05-18 00:00: 00 No 1mg cephalexin 500 mg capsule 05-18 00:00: 00 No 1mg metformin ER 500 mg tablet,exte nded release 24 hr 05-08 00:00: 00 Yes 1mg Cristian Stoll levothyroxi ne 137 mcg tablet 05-08 00:00: 00 Yes 1mcg Cristian Stoll metformin ER 500 mg tablet,exte nded release 24 hr 05-08 00:00: 00 No 1mg levothyroxi ne 137 mcg tablet 05-08 00:00: 00 No 1mcg metformin ER 500 mg tablet,exte nded release 24 hr 05-08 00:00: 00 No 1mg levothyroxi ne 137 mcg tablet 05-08 00:00: 00 No 1mcg metformin ER 500 mg tablet,exte nded release 24 hr 05-08 00:00: 00 No 1mg levothyroxi ne 137 mcg tablet 05-08 00:00: 00 No 1mcg metformin ER 500 mg tablet,exte nded release 24 hr 05-08 00:00: 00 No 1mg levothyroxi ne 137 mcg tablet 05-08 00:00: 00 No 1mcg metformin ER 500 mg tablet,exte nded release 24 hr 2017-03 00:00: 00 Yes 1mg Cristian Stoll levothyroxi ne 137 mcg tablet 2017-03 00:00: 00 Yes 1mcg Cristian Stoll metformin ER 500 mg tablet,exte nded release 24 hr 2017-03 00:00: 00 No 1mg levothyroxi ne 137 mcg tablet 2017-03 00:00: 00 No 1mcg metformin ER 500 mg tablet,exte nded release 24 hr 2017-03 00:00: 00 No 1mg levothyroxi ne 137 mcg tablet 2017-03 00:00: 00 No 1mcg metformin ER 500 mg tablet,exte nded release 24 hr 2017-03 00:00: 00 No 1mg levothyroxi ne 137 mcg tablet 2017-03 00:00: 00 No 1mcg metformin ER 500 mg tablet,exte nded release 24 hr 2017-03 00:00: 00 No 1mg levothyroxi ne 137 mcg tablet 2017-03 00:00: 00 No 1mcg Prilosec OTC 20 mg tablet,mali yed release 2017-03 00:00: 00 Yes 1mg Cristian Stoll trazodone 100 mg tablet 2017-03 00:00: 00 Yes 1mg Cristian Stoll Prilosec OTC 20 mg tablet,mali yed release 2017-03 00:00: 00 No 1mg trazodone 100 mg tablet 2017-03 00:00: 00 No 1mg Prilosec OTC 20 mg tablet,mali yed release 2017-03 00:00: 00 No 1mg trazodone 100 mg tablet 2017-03 00:00: 00 No 1mg Prilosec OTC 20 mg tablet,mali yed release 2017-03 00:00: 00 No 1mg trazodone 100 mg tablet 2017-03 00:00: 00 No 1mg Prilosec OTC 20 mg tablet,mali yed release 2017-03 00:00: 00 No 1mg trazodone 100 mg tablet 2017-03 00:00: 00 No 1mg levothyroxi ne 137 mcg tablet 11-09 00:00: 00 Yes 1mcg Cristian Stoll levothyroxi ne 137 mcg tablet 11-09 00:00: 00 No 1mcg levothyroxi ne 137 mcg tablet 11-09 00:00: 00 No 1mcg levothyroxi ne 137 mcg tablet 11-09 00:00: 00 No 1mcg levothyroxi ne 137 mcg tablet 11-09 00:00: 00 No 1mcg levothyroxi ne 150 mcg tablet 11-04 00:00: 00 Yes 1mcg Cristian Stoll levothyroxi ne 150 mcg tablet 11-04 00:00: 00 No 1mcg levothyroxi ne 150 mcg tablet 11-04 00:00: 00 No 1mcg levothyroxi ne 150 mcg tablet 11-04 00:00: 00 No 1mcg levothyroxi ne 150 mcg tablet 11-04 00:00: 00 No 1mcg amlodipine 5 mg tablet 11-03 00:00: 00 Yes 1mg Cristian Stoll levothyroxi ne 150 mcg tablet 11-03 00:00: 00 Yes 1mcg Cristian Stoll amlodipine 5 mg tablet 11-03 00:00: 00 No 1mg levothyroxi ne 150 mcg tablet 11-03 00:00: 00 No 1mcg amlodipine 5 mg tablet 11-03 00:00: 00 No 1mg levothyroxi ne 150 mcg tablet 11-03 00:00: 00 No 1mcg amlodipine 5 mg tablet 11-03 00:00: 00 No 1mg levothyroxi ne 150 mcg tablet 11-03 00:00: 00 No 1mcg amlodipine 5 mg tablet 11-03 00:00: 00 No 1mg levothyroxi ne 150 mcg tablet 11-03 00:00: 00 No 1mcg amlodipine 5 mg tablet 09-22 00:00: 00 Yes 1mg Cristian Stoll ondansetron HCl 4 mg tablet 09-22 00:00: 00 Yes 1mg Cristian Stoll levothyroxi ne 150 mcg tablet 09-22 00:00: 00 Yes 1mcg Cristian Stoll amlodipine 5 mg tablet 09-22 00:00: 00 No 1mg ondansetron HCl 4 mg tablet 09-22 00:00: 00 No 1mg levothyroxi ne 150 mcg tablet 09-22 00:00: 00 No 1mcg amlodipine 5 mg tablet 09-22 00:00: 00 No 1mg ondansetron HCl 4 mg tablet 09-22 00:00: 00 No 1mg levothyroxi ne 150 mcg tablet 09-22 00:00: 00 No 1mcg amlodipine 5 mg tablet 09-22 00:00: 00 No 1mg ondansetron HCl 4 mg tablet 09-22 00:00: 00 No 1mg levothyroxi ne 150 mcg tablet 09-22 00:00: 00 No 1mcg amlodipine 5 mg tablet 09-22 00:00: 00 No 1mg ondansetron HCl 4 mg tablet 09-22 00:00: 00 No 1mg levothyroxi ne 150 mcg tablet 09-22 00:00: 00 No 1mcg ondansetron HCl 4 mg tablet 09-15 00:00: 00 Yes 1mg Cristian Stoll ondansetron HCl 4 mg tablet 09-15 00:00: 00 No 1mg ondansetron HCl 4 mg tablet 09-15 00:00: 00 No 1mg ondansetron HCl 4 mg tablet 09-15 00:00: 00 No 1mg ondansetron HCl 4 mg tablet 09-15 00:00: 00 No 1mg levothyroxi ne 150 mcg tablet 09-03 00:00: 00 Yes 1mcg Cristian Stoll levothyroxi ne 150 mcg tablet 09-03 00:00: 00 No 1mcg levothyroxi ne 150 mcg tablet 09-03 00:00: 00 No 1mcg levothyroxi ne 150 mcg tablet 09-03 00:00: 00 No 1mcg levothyroxi ne 150 mcg tablet 09-03 00:00: 00 No 1mcg amlodipine 5 mg tablet 08-31 00:00: 00 Yes 1mg Cristian Stoll ondansetron HCl 4 mg tablet 08-31 00:00: 00 Yes 1mg Cristian Stoll Nexium 20 mg capsule,del ayed release 08-31 00:00: 00 Yes 1mg Cristian Stoll amlodipine 5 mg tablet 08-31 00:00: 00 No 1mg ondansetron HCl 4 mg tablet 08-31 00:00: 00 No 1mg Nexium 20 mg capsule,del ayed release 08-31 00:00: 00 No 1mg amlodipine 5 mg tablet 08-31 00:00: 00 No 1mg ondansetron HCl 4 mg tablet 08-31 00:00: 00 No 1mg Nexium 20 mg capsule,del ayed release 08-31 00:00: 00 No 1mg amlodipine 5 mg tablet 08-31 00:00: 00 No 1mg ondansetron HCl 4 mg tablet 08-31 00:00: 00 No 1mg Nexium 20 mg capsule,del ayed release 08-31 00:00: 00 No 1mg amlodipine 5 mg tablet 08-31 00:00: 00 No 1mg ondansetron HCl 4 mg tablet 08-31 00:00: 00 No 1mg Nexium 20 mg capsule,del ayed release 08-31 00:00: 00 No 1mg clonidine HCl 0.2 mg tablet 08-21 00:00: 00 Yes 1mg Cristian Stoll clonidine HCl 0.2 mg tablet 08-21 00:00: 00 No 1mg clonidine HCl 0.2 mg tablet 08-21 00:00: 00 No 1mg clonidine HCl 0.2 mg tablet 08-21 00:00: 00 No 1mg clonidine HCl 0.2 mg tablet 08-21 00:00: 00 No 1mg mirtazapine 30 mg tablet 08-12 00:00: 00 Yes 1mg Cristian Stoll levothyroxi ne 125 mcg tablet 08-12 00:00: 00 Yes 1mcg Cristian Stoll mirtazapine 30 mg tablet 08-12 00:00: 00 No 1mg levothyroxi ne 125 mcg tablet 08-12 00:00: 00 No 1mcg mirtazapine 30 mg tablet 08-12 00:00: 00 No 1mg levothyroxi ne 125 mcg tablet 08-12 00:00: 00 No 1mcg mirtazapine 30 mg tablet 08-12 00:00: 00 No 1mg levothyroxi ne 125 mcg tablet 08-12 00:00: 00 No 1mcg mirtazapine 30 mg tablet 08-12 00:00: 00 No 1mg levothyroxi ne 125 mcg tablet 08-12 00:00: 00 No 1mcg lovastatin 10 mg tablet 07-08 00:00: 00 Yes 1mg Cristian Stoll lovastatin 10 mg tablet 07-08 00:00: 00 No 1mg lovastatin 10 mg tablet 07-08 00:00: 00 No 1mg lovastatin 10 mg tablet 07-08 00:00: 00 No 1mg lovastatin 10 mg tablet 07-08 00:00: 00 No 1mg lovastatin 20 mg tablet 06-26 00:00: 00 Yes 1mg Cristian Stoll lovastatin 20 mg tablet 06-26 00:00: 00 No 1mg lovastatin 20 mg tablet 06-26 00:00: 00 No 1mg lovastatin 20 mg tablet 06-26 00:00: 00 No 1mg lovastatin 20 mg tablet 06-26 00:00: 00 No 1mg mirtazapine 30 mg tablet 06-22 00:00: 00 Yes 1mg Cristian So Jerman mirtazapine 30 mg tablet 16 00:00: 00 No 1mg mirtazapine 30 mg tablet 06-22 00:00: 00 No 1mg mirtazapine 30 mg tablet 06-22 00:00: 00 No 1mg mirtazapine 30 mg tablet 06-22 00:00: 00 No 1mg levothyroxi ne 125 mcg tablet 04-20 00:00: 00 Yes 1mcg Cristian Saray Jerman levothyroxi ne 125 mcg tablet 04-20 00:00: 00 No 1mcg levothyroxi ne 125 mcg tablet 04-20 00:00: 00 No 1mcg levothyroxi ne 125 mcg tablet 04-20 00:00: 00 No 1mcg levothyroxi ne 125 mcg tablet 04-20 00:00: 00 No 1mcg levothyroxi ne 125 mcg tablet 04-17 00:00: 00 Yes 1mcg Cristian Stoll levothyroxi ne 125 mcg tablet 04-17 00:00: 00 No 1mcg levothyroxi ne 125 mcg tablet 04-17 00:00: 00 No 1mcg levothyroxi ne 125 mcg tablet 04-17 00:00: 00 No 1mcg levothyroxi ne 125 mcg tablet 04-17 00:00: 00 No 1mcg levothyroxi ne 125 mcg tablet 2016-03 00:00: 00 Yes 1mcg Cristian Saray Jerman levothyroxi ne 125 mcg tablet 2016-03 00:00: 00 No 1mcg levothyroxi ne 125 mcg tablet 2016-03 00:00: 00 No 1mcg levothyroxi ne 125 mcg tablet 2016-03 00:00: 00 No 1mcg levothyroxi ne 125 mcg tablet 2016-03 00:00: 00 No 1mcg hydrochloro thiazide 25 mg tablet 2016-03 00:00: 00 Yes 1mg Cristian Stoll levothyroxi ne 150 mcg tablet 2016-03 00:00: 00 Yes 1mcg Cristian Stoll hydrochloro thiazide 25 mg tablet 2016-03 00:00: 00 No 1mg levothyroxi ne 150 mcg tablet 2016-03 00:00: 00 No 1mcg hydrochloro thiazide 25 mg tablet 2016-03 00:00: 00 No 1mg levothyroxi ne 150 mcg tablet 2016-03 00:00: 00 No 1mcg hydrochloro thiazide 25 mg tablet 2016-03 00:00: 00 No 1mg levothyroxi ne 150 mcg tablet 2016-03 00:00: 00 No 1mcg hydrochloro thiazide 25 mg tablet 2016-03 00:00: 00 No 1mg levothyroxi ne 150 mcg tablet 2016-03 00:00: 00 No 1mcg paroxetine 40 mg tablet 2016-03 00:00: 00 Yes 1mg Cristian Stoll paroxetine 40 mg tablet 2016-03 00:00: 00 Yes 1mg Cristian Stoll risperidone 1 mg tablet 2016-03 00:00: 00 Yes 1mg Cristian Stoll Trileptal 600 mg tablet 2016-03 00:00: 00 Yes 1mg Cristian Stoll mirtazapine 30 mg tablet 2016-03 00:00: 00 Yes 1mg Cristian Stoll paroxetine 40 mg tablet 2016-03 00:00: 00 No 1mg paroxetine 40 mg tablet 2016-03 00:00: 00 No 1mg risperidone 1 mg tablet 2016-03 00:00: 00 No 1mg Trileptal 600 mg tablet 2016-03 00:00: 00 No 1mg mirtazapine 30 mg tablet 2016-03 00:00: 00 No 1mg paroxetine 40 mg tablet 2016-03 00:00: 00 No 1mg paroxetine 40 mg tablet 2016-03 00:00: 00 No 1mg risperidone 1 mg tablet 2016-03 00:00: 00 No 1mg Trileptal 600 mg tablet 2016-03 00:00: 00 No 1mg mirtazapine 30 mg tablet 2016-03 00:00: 00 No 1mg paroxetine 40 mg tablet 2016-03 00:00: 00 No 1mg paroxetine 40 mg tablet 2016-03 00:00: 00 No 1mg risperidone 1 mg tablet 2016-03 00:00: 00 No 1mg Trileptal 600 mg tablet 2016-03 00:00: 00 No 1mg mirtazapine 30 mg tablet 2016-03 00:00: 00 No 1mg paroxetine 40 mg tablet 2016-03 00:00: 00 No 1mg paroxetine 40 mg tablet 2016-03 00:00: 00 No 1mg risperidone 1 mg tablet 2016-03 00:00: 00 No 1mg Trileptal 600 mg tablet 2016-03 00:00: 00 No 1mg mirtazapine 30 mg tablet 2016-03 00:00: 00 No 1mg levothyroxi ne 150 mcg tablet 2016-03 00:00: 00 Yes 1mcg Cristian Stoll levothyroxi ne 150 mcg tablet 2016-03 00:00: 00 No 1mcg levothyroxi ne 150 mcg tablet 2016-03 00:00: 00 No 1mcg levothyroxi ne 150 mcg tablet 2016-03 00:00: 00 No 1mcg levothyroxi ne 150 mcg tablet 2016-03 00:00: 00 No 1mcg risperidone 1 mg tablet 09-10 00:00: 00 Yes 1mg Cristian Stoll Trileptal 600 mg tablet 09-10 00:00: 00 Yes 1mg Cristian Stoll baclofen 10 mg tablet 09-10 00:00: 00 Yes 1mg Cristian Stoll hydroxyzine pamoate 50 mg capsule 09-10 00:00: 00 Yes 1mg Cristian Stoll risperidone 1 mg tablet 09-10 00:00: 00 No 1mg Trileptal 600 mg tablet 09-10 00:00: 00 No 1mg baclofen 10 mg tablet 09-10 00:00: 00 No 1mg hydroxyzine pamoate 50 mg capsule 09-10 00:00: 00 No 1mg risperidone 1 mg tablet 09-10 00:00: 00 No 1mg Trileptal 600 mg tablet 09-10 00:00: 00 No 1mg baclofen 10 mg tablet 09-10 00:00: 00 No 1mg hydroxyzine pamoate 50 mg capsule 09-10 00:00: 00 No 1mg risperidone 1 mg tablet 09-10 00:00: 00 No 1mg Trileptal 600 mg tablet 09-10 00:00: 00 No 1mg baclofen 10 mg tablet 09-10 00:00: 00 No 1mg hydroxyzine pamoate 50 mg capsule 09-10 00:00: 00 No 1mg risperidone 1 mg tablet 09-10 00:00: 00 No 1mg Trileptal 600 mg tablet 09-10 00:00: 00 No 1mg baclofen 10 mg tablet 09-10 00:00: 00 No 1mg hydroxyzine pamoate 50 mg capsule 09-10 00:00: 00 No 1mg ondansetron HCl 8 mg tablet 09-04 00:00: 00 Yes 1mg Cristian Stoll ondansetron HCl 8 mg tablet 09-04 00:00: 00 No 1mg ondansetron HCl 8 mg tablet 09-04 00:00: 00 No 1mg ondansetron HCl 8 mg tablet 09-04 00:00: 00 No 1mg ondansetron HCl 8 mg tablet 09-04 00:00: 00 No 1mg levothyroxi ne 150 mcg tablet 08-27 00:00: 00 Yes 1mcg Cristian Stoll levothyroxi ne 150 mcg tablet 08-27 00:00: 00 No 1mcg levothyroxi ne 150 mcg tablet 08-27 00:00: 00 No 1mcg levothyroxi ne 150 mcg tablet 08-27 00:00: 00 No 1mcg levothyroxi ne 150 mcg tablet 08-27 00:00: 00 No 1mcg paroxetine 40 mg tablet 08-22 00:00: 00 Yes 1mg Cristian Stoll mirtazapine 30 mg tablet 08-22 00:00: 00 Yes 1mg Cristian Stoll paroxetine 40 mg tablet 08-22 00:00: 00 No 1mg mirtazapine 30 mg tablet 08-22 00:00: 00 No 1mg paroxetine 40 mg tablet 08-22 00:00: 00 No 1mg mirtazapine 30 mg tablet 08-22 00:00: 00 No 1mg paroxetine 40 mg tablet 08-22 00:00: 00 No 1mg mirtazapine 30 mg tablet 08-22 00:00: 00 No 1mg paroxetine 40 mg tablet 08-22 00:00: 00 No 1mg mirtazapine 30 mg tablet 08-22 00:00: 00 No 1mg oxybutynin chloride 5 mg tablet 08-18 00:00: 00 Yes 1mg Cristian Stoll ondansetron HCl 8 mg tablet 08-18 00:00: 00 Yes 1mg Cristian Stoll oxybutynin chloride 5 mg tablet 08-18 00:00: 00 No 1mg ondansetron HCl 8 mg tablet 08-18 00:00: 00 No 1mg oxybutynin chloride 5 mg tablet 08-18 00:00: 00 No 1mg ondansetron HCl 8 mg tablet 08-18 00:00: 00 No 1mg oxybutynin chloride 5 mg tablet 08-18 00:00: 00 No 1mg ondansetron HCl 8 mg tablet 08-18 00:00: 00 No 1mg oxybutynin chloride 5 mg tablet 08-18 00:00: 00 No 1mg ondansetron HCl 8 mg tablet 08-18 00:00: 00 No 1mg Keflex 500 mg capsule 08-11 00:00: 00 Yes 1mg Cristian Stoll Keflex 500 mg capsule 08-11 00:00: 00 No 1mg Keflex 500 mg capsule 08-11 00:00: 00 No 1mg Keflex 500 mg capsule 08-11 00:00: 00 No 1mg Keflex 500 mg capsule 08-11 00:00: 00 No 1mg hydrochloro thiazide 50 mg tablet 08-05 00:00: 00 Yes 1mg Cristian Stoll ondansetron HCl 8 mg tablet 08-05 00:00: 00 Yes 1mg Cristian Stoll paroxetine 40 mg tablet 08-05 00:00: 00 Yes 1mg Cristian Stoll clonidine HCl 0.2 mg tablet 08-05 00:00: 00 Yes 1mg Cristian Stoll risperidone 1 mg tablet 08-05 00:00: 00 Yes 1mg Cristian Stoll Trileptal 600 mg tablet 08-05 00:00: 00 Yes 1mg Cristian Stoll mirtazapine 30 mg tablet 08-05 00:00: 00 Yes 1mg Cristian Stoll oxcarbazepi ne 600 mg tablet 08-05 00:00: 00 Yes 1mg Cristian Stoll baclofen 10 mg tablet 08-05 00:00: 00 Yes 1mg Cristian Stoll levothyroxi ne 150 mcg tablet 08-05 00:00: 00 Yes 1mcg Cristian Stoll hydroxyzine pamoate 50 mg capsule 08-05 00:00: 00 Yes 1mg Cristian Stoll hydrochloro thiazide 50 mg tablet 08-05 00:00: 00 No 1mg ondansetron HCl 8 mg tablet 08-05 00:00: 00 No 1mg paroxetine 40 mg tablet 08-05 00:00: 00 No 1mg hydrochloro thiazide 50 mg tablet 08-05 00:00: 00 No 1mg ondansetron HCl 8 mg tablet 08-05 00:00: 00 No 1mg paroxetine 40 mg tablet 08-05 00:00: 00 No 1mg clonidine HCl 0.2 mg tablet 08-05 00:00: 00 No 1mg risperidone 1 mg tablet 08-05 00:00: 00 No 1mg Trileptal 600 mg tablet 08-05 00:00: 00 No 1mg mirtazapine 30 mg tablet 08-05 00:00: 00 No 1mg oxcarbazepi ne 600 mg tablet 08-05 00:00: 00 No 1mg baclofen 10 mg tablet 08-05 00:00: 00 No 1mg levothyroxi ne 150 mcg tablet 08-05 00:00: 00 No 1mcg hydroxyzine pamoate 50 mg capsule 08-05 00:00: 00 No 1mg clonidine HCl 0.2 mg tablet 08-05 00:00: 00 No 1mg risperidone 1 mg tablet 08-05 00:00: 00 No 1mg Trileptal 600 mg tablet 08-05 00:00: 00 No 1mg mirtazapine 30 mg tablet 08-05 00:00: 00 No 1mg oxcarbazepi ne 600 mg tablet 08-05 00:00: 00 No 1mg baclofen 10 mg tablet 08-05 00:00: 00 No 1mg levothyroxi ne 150 mcg tablet 08-05 00:00: 00 No 1mcg hydroxyzine pamoate 50 mg capsule 08-05 00:00: 00 No 1mg hydrochloro thiazide 50 mg tablet 08-05 00:00: 00 No 1mg ondansetron HCl 8 mg tablet 08-05 00:00: 00 No 1mg paroxetine 40 mg tablet 08-05 00:00: 00 No 1mg clonidine HCl 0.2 mg tablet 08-05 00:00: 00 No 1mg risperidone 1 mg tablet 08-05 00:00: 00 No 1mg Trileptal 600 mg tablet 08-05 00:00: 00 No 1mg mirtazapine 30 mg tablet 08-05 00:00: 00 No 1mg oxcarbazepi ne 600 mg tablet 08-05 00:00: 00 No 1mg baclofen 10 mg tablet 08-05 00:00: 00 No 1mg levothyroxi ne 150 mcg tablet 08-05 00:00: 00 No 1mcg hydroxyzine pamoate 50 mg capsule 08-05 00:00: 00 No 1mg hydrochloro thiazide 50 mg tablet 08-05 00:00: 00 No 1mg ondansetron HCl 8 mg tablet 08-05 00:00: 00 No 1mg paroxetine 40 mg tablet 08-05 00:00: 00 No 1mg clonidine HCl 0.2 mg tablet 08-05 00:00: 00 No 1mg risperidone 1 mg tablet 08-05 00:00: 00 No 1mg Trileptal 600 mg tablet 08-05 00:00: 00 No 1mg mirtazapine 30 mg tablet 08-05 00:00: 00 No 1mg oxcarbazepi ne 600 mg tablet 08-05 00:00: 00 No 1mg baclofen 10 mg tablet 08-05 00:00: 00 No 1mg levothyroxi ne 150 mcg tablet 08-05 00:00: 00 No 1mcg hydroxyzine pamoate 50 mg capsule 08-05 00:00: 00 No 1mg Immunizations Ordered Immunization Name Filled Immunization Name Date Status Comments Source (Old) Moderna COVID-19 Vaccine Bivalent Booster for ages 6 + years (18+, 12-17, 6-11) (Old) Moderna COVID-19 Vaccine Bivalent Booster for ages 6 + years (18+, 12-17, 6-11) 2021-12-24 00:00:00 Anum Stoll (Old) Moderna COVID-19 Vaccine Bivalent Booster for ages 6 + years (18+, 12-17, 6-11) (Old) Moderna COVID-19 Vaccine Bivalent Booster for ages 6 + years (18+, 12-17, 6-11) 2021-12-24 00:00:00 Anum Stoll Moderna COVID-19 Vaccine Moderna COVID-19 Vaccine 2021-01-18 00:00:00 Anum Stoll Moderna COVID-19 Vaccine Moderna COVID-19 Vaccine 2021-01-18 00:00:00 Anum Stoll Moderna COVID-19 Vaccine Moderna COVID-19 Vaccine 2020-07-24 00:00:00 Anum Stoll Moderna COVID-19 Vaccine Moderna COVID-19 Vaccine 2020-07-24 00:00:00 Anum Stoll Moderna COVID-19 Vaccine Moderna COVID-19 Vaccine 2020-06-13 00:00:00 Completed Cristian Stoll Moderna COVID-19 Vaccine Moderna COVID-19 Vaccine 2020-06-13 00:00:00 Completed Cristian Stoll Vital Signs Vital Name Observation Time Observation Value Comments S flip BP Systolic 2024-02-08 16:47:00 Step ca Stoll BP Diastolic 2024-02-08 16:47:00 Sal phen F Jerman Weight Measured 2024-02-08 16:47:00 Cristian F Jerman Height Measured 2024-02-08 16:47:00 Cristian F Jerman Body Temperature 2024-02-08 16:47:00 Cristian F Jerman Heart Rate 2024-02-08 16:47:00 Madiha en F Jerman Respiratory Rate 2024-02-08 16:47:00 Cristian F Jerman BP Systolic 2024-01-22 08:35:00 Step hen F Jerman BP Diastolic 2024-01-22 08:35:00 Sal phen F Jerman Weight Measured 2024-01-22 08:35:00 155.00 pounds Cristian F Jerman Height Measured 2024-01-22 08:35:00 66.00 inches Cristian F Jerman Body Temperature 2024-01-22 08:35:00 Cristian F Jerman Heart Rate 2024-01-22 08:35:00 Madiha en F Jerman Respiratory Rate 2024-01-22 08:35:00 Cristian F Jerman BP Systolic 2024-01-08 17:51:00 Step hen F Jerman BP Diastolic 2024-01-08 17:51:00 Sal phen F Jerman Weight Measured 2024-01-08 17:51:00 Cristian F Jerman Height Measured 2024-01-08 17:51:00 Cristian F Jerman Body Temperature 2024-01-08 17:51:00 Cristian F Jerman Heart Rate 2024-01-08 17:51:00 Madiha en F Jerman Respiratory Rate 2024-01-08 17:51:00 Cristian F Jerman BP Systolic 2023-11-02 16:48:00 Step hen F Jerman BP Diastolic 2023-11-02 16:48:00 Sal phen F Jerman Weight Measured 2023-11-02 16:48:00 Cristian F Jerman Height Measured 2023-11-02 16:48:00 Cristian F Jerman Body Temperature 2023-11-02 16:48:00 Cristian F Jerman Heart Rate 2023-11-02 16:48:00 Madiha en F Jerman Respiratory Rate 2023-11-02 16:48:00 Cristian F Jerman BP Systolic 2023-08-31 11:00:00 178 mm[Hg] Step hen F Jerman BP Diastolic 2023-08-31 11:00:00 92 mm[Hg] Sal phen F Jerman Weight Measured 2023-08-31 11:00:00 155.60 pounds Cristian F Jerman Height Measured 2023-08-31 11:00:00 66.00 inches Cristian F Jerman Body Temperature 2023-08-31 11:00:00 98.10 degrees Cristian F Jerman Heart Rate 2023-08-31 11:00:00 92.00 /min Madiha en F Jerman Respiratory Rate 2023-08-31 11:00:00 18.00 /min Cristian F Jerman BP Systolic 2023-07-20 11:31:00 166 mm[Hg] Step hen F Jerman BP Diastolic 2023-07-20 11:31:00 106 mm[Hg] Sal phen F Jerman Weight Measured 2023-07-20 11:31:00 159.20 pounds Cristian F Jerman Height Measured 2023-07-20 11:31:00 66.00 inches Cristian F Jerman Body Temperature 2023-07-20 11:31:00 98.00 degrees Cristian F Jerman Heart Rate 2023-07-20 11:31:00 80.00 /min Madiha en F Jerman Respiratory Rate 2023-07-20 11:31:00 16.00 /min Cristian F Jerman BP Systolic 2023-06-15 10:54:00 180 mm[Hg] Step hen F Jerman BP Diastolic 2023-06-15 10:54:00 103 mm[Hg] Sla phen F Jerman Weight Measured 2023-06-15 10:54:00 164.20 pounds Cristian F Jerman Height Measured 2023-06-15 10:54:00 66.00 inches Cristian F Jerman Body Temperature 2023-06-15 10:54:00 98.10 degrees Cristian F Jerman Heart Rate 2023-06-15 10:54:00 85.00 /min Madiha en F Jerman Respiratory Rate 2023-06-15 10:54:00 19.00 /min Cristian F Jerman BP Systolic 2023-02-24 08:20:00 139 mm[Hg] Step hen F Jerman BP Diastolic 2023-02-24 08:20:00 81 mm[Hg] Sal phen F Jerman Weight Measured 2023-02-24 08:20:00 164.00 pounds Cristian F Jerman Height Measured 2023-02-24 08:20:00 66.00 inches Cristian F Jerman Body Temperature 2023-02-24 08:20:00 98.10 degrees Cristian F Jerman Heart Rate 2023-02-24 08:20:00 94.00 /min Madiha en F Jerman Respiratory Rate 2023-02-24 08:20:00 19.00 /min Cristian F Jerman BP Systolic 2022-11-25 14:12:00 Step hen F Jerman BP Diastolic 2022-11-25 14:12:00 Sal phen F Jerman Weight Measured 2022-11-25 14:12:00 Cristian F Jerman Height Measured 2022-11-25 14:12:00 66.00 inches Cristian F Jerman Body Temperature 2022-11-25 14:12:00 Cristian F Jerman Heart Rate 2022-11-25 14:12:00 Madiha en F Jerman Respiratory Rate 2022-11-25 14:12:00 Cristian F Jerman BP Systolic 2022-05-24 10:45:00 167 mm[Hg] Step hen F Jerman BP Diastolic 2022-05-24 10:45:00 94 mm[Hg] Sal phen F Jerman Weight Measured 2022-05-24 10:45:00 171.20 pounds Cristian F Jerman Height Measured 2022-05-24 10:45:00 66.00 inches Cristian F Jerman Body Temperature 2022-05-24 10:45:00 98.20 degrees Cristian F Jerman Heart Rate 2022-05-24 10:45:00 77.00 /min Madiha en F Jerman Respiratory Rate 2022-05-24 10:45:00 18.00 /min Cristian F Jerman BP Systolic 2022-02-10 09:36:00 103 mm[Hg] Step hen F Jerman BP Diastolic 2022-02-10 09:36:00 69 mm[Hg] Sal phen F Jerman Weight Measured 2022-02-10 09:36:00 165.40 pounds Cristian F Jerman Height Measured 2022-02-10 09:36:00 66.00 inches Cristian F Jerman Body Temperature 2022-02-10 09:36:00 98.10 degrees Cristian F Jerman Heart Rate 2022-02-10 09:36:00 69.00 /min Madiha en F Jerman Respiratory Rate 2022-02-10 09:36:00 18.00 /min Cristian F Jerman BP Systolic 2022-01-10 09:27:00 177 mm[Hg] Step hen F Jerman BP Diastolic 2022-01-10 09:27:00 94 mm[Hg] Sal phen F Jerman Weight Measured 2022-01-10 09:27:00 163.80 pounds Cristian F Jerman Height Measured 2022-01-10 09:27:00 66.00 inches Cristian F Jerman Body Temperature 2022-01-10 09:27:00 97.60 degrees Cristian F Jerman Heart Rate 2022-01-10 09:27:00 79.00 /min Madiha en F Jerman Respiratory Rate 2022-01-10 09:27:00 18.00 /min Cristian F Jerman BP Systolic 2021-09-17 09:00:00 178 mm[Hg] Step hen F Jerman BP Diastolic 2021-09-17 09:00:00 97 mm[Hg] Sal phen F Jerman Weight Measured 2021-09-17 09:00:00 170.40 pounds Cristian F Jerman Height Measured 2021-09-17 09:00:00 66.00 inches Cristian F Jerman Body Temperature 2021-09-17 09:00:00 97.70 degrees Cristian F Jerman Heart Rate 2021-09-17 09:00:00 80.00 /min Madiha en F Jerman Respiratory Rate 2021-09-17 09:00:00 16.00 /min Cristian F Jerman BP Systolic 2021-06-26 08:05:00 181 mm[Hg] Step hen F Jerman BP Diastolic 2021-06-26 08:05:00 90 mm[Hg] Sal phen F Jerman Weight Measured 2021-06-26 08:05:00 173.80 pounds Cristian F Jerman Height Measured 2021-06-26 08:05:00 66.00 inches Cristian F Jerman Body Temperature 2021-06-26 08:05:00 98.10 degrees Cristian F Jerman Heart Rate 2021-06-26 08:05:00 89.00 /min Madiha en F Jerman Respiratory Rate 2021-06-26 08:05:00 16.00 /min Cristian F Jerman BP Systolic 2021-04-22 10:12:00 162 mm[Hg] Step hen F Jerman BP Diastolic 2021-04-22 10:12:00 90 mm[Hg] Sal phen F Jerman Weight Measured 2021-04-22 10:12:00 184.60 pounds Cristian F Jerman Height Measured 2021-04-22 10:12:00 66.00 inches Cristian F Jerman Body Temperature 2021-04-22 10:12:00 98.20 degrees Cristian Saray Stoll Heart Rate 2021-04-22 10:12:00 87.00 /min Madiha en F Jerman Respiratory Rate 2021-04-22 10:12:00 16.00 /min Cristian Stoll BP Systolic 2021-04-05 13:28:00 BP Diastolic 2021-04-05 [...] /min Respiratory Rate 2019-03-30 08:53:00 16.00 /min Plan of Care Planned Activity Planned Date Details Comments Source Goal Plan of Care Note [code = 86838-2] Goal Plan of Care Note [code = 32098-9] Goal Plan of Care Note [code = 21015-7] Goal Plan of Care Note [code = 42524-8] Goal Plan of Care Note [code = 90724-1] Goal Plan of Care Note [code = 95132-9] Goal Plan of Care Note [code = 04568-2] Goal Plan of Care Note [code = 79644-4] Goal Plan of Care Note [code = 14486-5] Goal Plan of Care Note [code = 45413-4] Goal Plan of Care Note [code = 03772-5] Goal Plan of Care Note [code = 68449-4] Goal Plan of Care Note [code = 97842-8] Goal Plan of Care Note [code = 96500-7] Goal Plan of Care Note [code = 59653-1] Goal Plan of Care Note [code = 73282-5] Goal Plan of Care Note [code = 69924-9] Goal Plan of Care Note [code = 55208-1] Goal Plan of Care Note [code = 16298-4] Goal Plan of Care Note [code = 38678-0] Goal Plan of Care Note [code = 81033-2] Goal Plan of Care Note [code = 44391-9] Goal Plan of Care Note [code = 77323-2] Goal Plan of Care Note [code = 58470-7] Goal Plan of Care Note [code = 55786-4] Goal Plan of Care Note [code = 82323-6] Goal Plan of Care Note [code = 09992-6] Goal Plan of Care Note [code = 71069-2] Goal Plan of Care Note [code = 33310-2] Goal Plan of Care Note [code = 31466-0] Goal Plan of Care Note [code = 24998-7] Goal Plan of Care Note [code = 09005-7] Goal Plan of Care Note [code = 98115-3] Goal Plan of Care Note [code = 59494-5] Goal Plan of Care Note [code = 43653-9] Goal Plan of Care Note [code = 65471-5] Goal Plan of Care Note [code = 15469-7] Goal Plan of Care Note [code = 23455-5] Goal Plan of Care Note [code = 60816-3] Goal Plan of Care Note [code = 04058-1] Goal Plan of Care Note [code = 24188-4] Goal Plan of Care Note [code = 89556-6] Goal Plan of Care Note [code = 10187-0] Goal Plan of Care Note [code = 50253-7] Goal Plan of Care Note [code = 70431-6] Goal Plan of Care Note [code = 40880-6] Goal Plan of Care Note [code = 92896-1] Goal Plan of Care Note [code = 35584-9] Goal Plan of Care Note [code = 76749-9] Goal Plan of Care Note [code = 48602-5] Goal Plan of Care Note [code = 34439-3] Goal Plan of Care Note [code = 02054-8] Goal Plan of Care Note [code = 09289-0] Goal Plan of Care Note [code = 74496-3] Goal Plan of Care Note [code = 30280-3] Goal Plan of Care Note [code = 36085-4] Goal Plan of Care Note [code = 67405-9] Goal Plan of Care Note [code = 80676-0] Goal Plan of Care Note [code = 50474-1] Goal Plan of Care Note [code = 42717-2] Goal Plan of Care Note [code = 29417-8] Goal Plan of Care Note [code = 56619-8] Goal Plan of Care Note [code = 00764-6] Goal Plan of Care Note [code = 63918-1] Goal Plan of Care Note [code = 63367-0] Goal Plan of Care Note [code = 05626-2] Goal Plan of Care Note [code = 53647-0] Goal Plan of Care Note [code = 26315-6] Goal Plan of Care Note [code = 77775-7] Goal Plan of Care Note [code = 20181-7] Goal Plan of Care Note [code = 47075-2] Goal Plan of Care Note [code = 95196-2] Goal Plan of Care Note [code = 85024-9] Goal Plan of Care Note [code = 59121-0] Goal Plan of Care Note [code = 54342-5] Goal Plan of Care Note [code = 34261-9] Goal Plan of Care Note [code = 23340-5] Goal Plan of Care Note [code = 04203-3] Goal Plan of Care Note [code = 44559-1] Goal Plan of Care Note [code = 36158-0] Goal Plan of Care Note [code = 11560-3] Goal Plan of Care Note [code = 12185-6] Goal Plan of Care Note [code = 69366-2] Goal Plan of Care Note [code = 05477-7] Goal Plan of Care Note [code = 88282-8] Goal Plan of Care Note [code = 76852-2] Goal Plan of Care Note [code = 32376-3] Goal Plan of Care Note [code = 79925-2] Goal Plan of Care Note [code = 72205-8] Goal Plan of Care Note [code = 23632-7] Goal Plan of Care Note [code = 18331-7] Goal Plan of Care Note [code = 13128-2] Goal Plan of Care Note [code = 96643-1] Goal Plan of Care Note [code = 73767-3] Goal Plan of Care Note [code = 16770-9] Goal Plan of Care Note [code = 26637-6] Goal Plan of Care Note [code = 36444-9] Goal Plan of Care Note [code = 62007-8] Goal Plan of Care Note [code = 41811-0] Goal Plan of Care Note [code = 63877-6] Goal Plan of Care Note [code = 76353-6] Goal Plan of Care Note [code = 12000-7] Goal Plan of Care Note [code = 46928-6] Goal Plan of Care Note [code = 29078-7] Goal Plan of Care Note [code = 11437-6] Goal Plan of Care Note [code = 18893-3] Goal Plan of Care Note [code = 91676-4] Goal Plan of Care Note [code = 53887-6] Goal Plan of Care Note [code = 85213-0] Goal Plan of Care Note [code = 47355-7] Goal Plan of Care Note [code = 64232-3] Goal Plan of Care Note [code = 48873-4] Goal Plan of Care Note [code = 17490-7] Goal Plan of Care Note [code = 22154-9] Goal Plan of Care Note [code = 90081-8] Goal Plan of Care Note [code = 79085-4] Goal Plan of Care Note [code = 45993-1] Goal Plan of Care Note [code = 32071-9] Goal Plan of Care Note [code = 95329-9] Goal Plan of Care Note [code = 65451-6] Goal Plan of Care Note [code = 96550-7] Goal Plan of Care Note [code = 08263-9] Goal Plan of Care Note [code = 57312-8] Goal Plan of Care Note [code = 34702-4] Goal Plan of Care Note [code = 95068-2] Goal Plan of Care Note [code = 18146-2] Goal Plan of Care Note [code = 03891-7] Goal Plan of Care Note [code = 20592-9] Goal Plan of Care Note [code = 30479-2] Goal Plan of Care Note [code = 03392-6] Goal Plan of Care Note [code = 60408-6] Goal Plan of Care Note [code = 15908-7] Goal Plan of Care Note [code = 15968-9] Goal Plan of Care Note [code = 43833-1] Goal Plan of Care Note [code = 03262-0] Goal Plan of Care Note [code = 50135-9] Goal Plan of Care Note [code = 55317-3] Goal Plan of Care Note [code = 79257-2] Goal Plan of Care Note [code = 59602-1] Goal Plan of Care Note [code = 92112-9] Goal Plan of Care Note [code = 87060-6] Goal Plan of Care Note [code = 87409-6] Goal Plan of Care Note [code = 93419-6] Goal Plan of Care Note [code = 31280-2] Goal Plan of Care Note [code = 29289-2] Goal Plan of Care Note [code = 75956-0] Goal Plan of Care Note [code = 57842-6] Goal Plan of Care Note [code = 11302-0] Goal Plan of Care Note [code = 96291-8] Goal Plan of Care Note [code = 80267-4] Goal Plan of Care Note [code = 38356-8] Goal Plan of Care Note [code = 64387-6] Goal Plan of Care Note [code = 61960-7] Goal Plan of Care Note [code = 82757-0] Goal Plan of Care Note [code = 38756-8] Goal Plan of Care Note [code = 27823-4] Goal Plan of Care Note [code = 24826-0] Goal Plan of Care Note [code = 04661-3] Goal Plan of Care Note [code = 01133-5] Goal Plan of Care Note [code = 21208-9] Goal Plan of Care Note [code = 87775-3] Goal Plan of Care Note [code = 92861-4] Goal Plan of Care Note [code = 95843-8] Goal Plan of Care Note [code = 03444-4] Goal Plan of Care Note [code = 13380-3] Goal Plan of Care Note [code = 69191-3] Goal Plan of Care Note [code = 45632-1] Goal Plan of Care Note [code = 46594-0] Goal Plan of Care Note [code = 46578-8] Goal Plan of Care Note [code = 81101-0] Goal Plan of Care Note [code = 79973-0] Goal Plan of Care Note [code = 31955-8] Goal Plan of Care Note [code = 91276-1] Goal Plan of Care Note [code = 37480-7] Goal Plan of Care Note [code = 69284-9] Goal Plan of Care Note [code = 69863-9] Goal Plan of Care Note [code = 02810-0] Goal Plan of Care Note [code = 53264-5] Goal Plan of Care Note [code = 94989-3] Goal Plan of Care Note [code = 76128-1] Goal Plan of Care Note [code = 75374-1] Goal Plan of Care Note [code = 33687-5] Goal Plan of Care Note [code = 69976-8] Goal Plan of Care Note [code = 51373-1] Goal Plan of Care Note [code = 68352-0] Goal Plan of Care Note [code = 47296-1] Goal Plan of Care Note [code = 29142-2] Goal Plan of Care Note [code = 79255-7] Goal Plan of Care Note [code = 85096-8] Goal Plan of Care Note [code = 42479-2] Goal Plan of Care Note [code = 62674-5] Goal Plan of Care Note [code = 96202-2] Goal Plan of Care Note [code = 28926-0] Goal Plan of Care Note [code = 60124-0] Goal Plan of Care Note [code = 41621-3] Goal Plan of Care Note [code = 70535-5] Goal Plan of Care Note [code = 95268-5] Goal Plan of Care Note [code = 12253-2] Goal Plan of Care Note [code = 26977-3] Goal Plan of Care Note [code = 60488-7] Goal Plan of Care Note [code = 14194-4] Goal Plan of Care Note [code = 21985-5] Goal Plan of Care Note [code = 86687-2] Goal Plan of Care Note [code = 48312-0] Goal Plan of Care Note [code = 22193-0] Goal Plan of Care Note [code = 62015-6] Goal Plan of Care Note [code = 51958-8] Goal Plan of Care Note [code = 17943-8] Encounters Start Date/Time End Date/Time Encounter Type Admission Type Attending [facility] Care Department Encounter ID Source 2024-02-08 17:14:47 2024-02-08 17:14:47 Outpatient SFA [facility] [id number] Cristian So Jerman 2024-02-08 00:00:00 2024-02-08 00:00:00 Outpatient Visit [facility] [id number] Cristian So Jerman 2024-01-22 00:00:00 2024-01-22 00:00:00 Outpatient Visit [facility] [id number] Cristian So Jerman 2024-01-08 17:50:28 2024-01-08 17:50:28 Outpatient SFA [facility] [id number] Cristian So Jerman 2024-01-08 00:00:00 2024-01-08 00:00:00 Outpatient Visit [facility] [id number] Cristianca Stoll 2024-01-06 00:00:00 2024-01-06 00:00:00 Outpatient Visit [facility] [id number] Cristian Stoll 2023-12-18 11:08:43 2023-12-18 11:08:43 Outpatient SFA [facility] 1011 Cristian Stoll 2023-12-18 00:00:00 2023-12-18 00:00:00 Outpatient Visit [facility] [id number] Cristian Stoll 2023-11-02 00:00:00 2023-11-02 00:00:00 Outpatient Visit [facility] [id number] Cristian Stoll 2023-10-20 11:29:39 2023-10-20 11:29:39 Outpatient SFA [facility] 812 Cristian Stoll 2023-10-20 00:00:00 2023-10-20 00:00:00 Outpatient Visit [facility] [id number] Cristian Stoll 2023-08-31 10:49:51 2023-08-31 10:49:51 Outpatient SFA [facility] 623 Cristian Stoll 2023-08-31 00:00:00 2023-08-31 00:00:00 Outpatient Visit [facility] [id number] Cristian Stoll 2023-07-20 11:16:52 2023-07-20 11:16:52 Outpatient SFA [facility] 512 Cristian Stoll 2023-07-20 00:00:00 2023-07-20 00:00:00 Outpatient Visit [facility] [id number] Cristian Stoll 2023-06-15 10:41:09 2023-06-15 10:41:09 Outpatient [facility] [id number] Cristian Stoll 2023-02-24 08:15:53 2023-02-24 08:15:53 Outpatient SFA [facility] 1219 Cristian Stoll 2022-11-25 14:11:37 2022-11-25 14:11:37 Outpatient SFA [facility] 0919 Cristian Stoll 2022-05-24 10:36:59 2022-05-24 10:36:59 Outpatient SFA [facility] 0318 Cristian Stoll 2022-02-11 09:04:48 2022-02-11 09:04:48 Outpatient SFA [facility] 1206 Cristian Stoll 2022-02-10 09:29:34 2022-02-10 09:29:34 Outpatient SFA [facility] 1205 Cristian Stoll 2022-02-10 00:00:00 2022-02-10 00:00:00 Outpatient Visit [id number] 2022-01-10 09:16:14 2022-01-10 09:16:14 Outpatient SFA [facility] 1104 Cristian Stoll 2022-01-10 00:00:00 2022-01-10 00:00:00 Outpatient Visit [id number] 2021-12-19 16:11:31 2021-12-19 16:11:31 Outpatient SFA [facility] 1013 Cristian Stoll 2021-12-19 00:00:00 2021-12-19 00:00:00 Outpatient Visit [id number] [id number] 2021-09-17 00:00:2021-09-17 00:00:00 Outpatient Visit [id number] 2020-08-03 10:00:00 2020-08-03 10:00:00 Outpatient Bertin PUGHCALVINMATT Cabrales [facility] [id number] [facility] 2020-07-25 00:00:00 2020-07-25 00:00:00 Orders Only Doctor Unassigned, [place] [id number] 2019-09-26 16:00:00 2019-09-26 16:00:00 Outpatient Bertin KRISHNAMURTHYWALLY [facility] [id number] [facility] 2018-10-21 00:00:00 2018-10-21 00:00:00 Telephone Natacha Back [facility] [id number] Results Test Description Test Time Test Comments Results Result Co mments Source TSH, THIRD [id number] 00:00:00* Test Item Value Reference Range Interpretation Comme nts TSH, THIRD GENERATION (test code = 2821) 1.770 UIU/ML Cristian StollMIRANDAJessa, THIRD [id number] 00:00:00* Test Item Value Reference Range Interpretation Comme nts TSH, THIRD GENERATION (test code = 2821) 1.770 UIU/ML Cristian GarvinH, THIRD [id number] 00:00:00* Test Item Value Reference Range Interpretation Comme nts TSH, THIRD GENERATION (test code = 2821) 1.770 UIU/ML Cristian StollMIRANDAJessa, THIRD [id number] 00:00:00* Test Item Value Reference Range Interpretation Comme nts TSH, THIRD GENERATION (test code = 2821) 1.770 UIU/ML CristianISMAEL Cordero [id number] 00:00:00* Test Item Value Reference Range Interpretation Comme nts TSH, THIRD GENERATION (test code = 2821) 1.770 UIU/ML ISMAEL Titus [id number] 00:00:00* Test Item Value Reference Range Interpretation Comme nts TSH, THIRD GENERATION (test code = 2821) 1.770 UIU/ML ISMAEL Titus [id number] 00:00:00* Test Item Value Reference Range Interpretation Comme nts TSH, THIRD GENERATION (test code = 2821) 1.770 UIU/ML ISMAEL Titus [id number] 00:00:00* Test Item Value Reference Range Interpretation Comme nts TSH, THIRD GENERATION (test code = 2821) 1.770 UIU/ML ISMAEL Titus [id number] 00:00:00* Test Item Value Reference Range Interpretation Comme chiara PERRY, THIRD GENERATION (test code = 2821) 1.770 UIU/ML ISMAEL Titus [id number] 06:41:34* Test Item Value Reference Range Interpretation Comme chiara PERRY, ISMAEL GENERATION (test code = 2821) 17.200 UIU/ML 0.400-4.100 H COMPREHENSIVE METABOLIC [id number] 06:41:26* Test Item Value Reference Range Interpretation Comme nts GLUCOSE (test code = 2217) 147 MG/DL 70-99 H BUN (test code = 2207) 14 MG/DL 8-23 CREATININE (test code = 2214) 0.68 MG/DL 0.60-1.30 eGFR (2020 CKD-EPI) (test co de = 40758) 98 ML/MIN/1.73 >60 CALC BUN/CREAT (test code = 2235) 21 RATIO 6-28 SODIUM (test code = 2231) 131 MEQ/L 133-146 L POTASSIUM (test code = 2228) 4.2 MEQ/L 3.5-5.4 CHLORIDE (test code = 2215) 92 MEQ/L 95-107 L CARBON DIOXIDE (test code = 6) 25 MEQ/L 19-31 CALCIUM (test code = 2209) 10.1 MG/DL 8.5-10.5 PROTEIN, TOTAL (test code = 9) 7.7 G/DL 6.1-8.3 ALBUMIN (test code = 2201) 4.4 G/DL 3.5-5.2 CALC GLOBULIN (test code = 2240) 3.3 G/DL 1.9-3.7 CALC A/G RATIO (test code = 2234) 1.3 RATIO 1.0-2.6 BILIRUBIN, TOTAL (test code = 2206) <0.2 MG/DL <=1.2 ALKALINE PHOSPHATASE (test code = 2203) 103 U/L 40-140 AST (test code = 2218) 20 U/L 9-40 ALT (test code = 2218) 28 U/L 5-40 LIPID [id number] 06:41:26* Test Item Value Reference Range Interpretation Comme nts CHOLESTEROL (test code = 0) 299 MG/DL <200 H TRIGLYCERIDES (test code = 2) 135 MG/DL <150 HDL CHOLESTEROL (test code = 2219) 63 MG/DL >39 CALC LDL CHOL (test code = 2236) 207 MG/DL <100 H NOTE: CALCULATED LDL IS BASED ON MELBA-OLVERA METHOD WHICHINCLUDES ADJUSTABLE TRIGLYCERIDE:VLDL CHOLESTEROL RATIO.THIS FACTOR VARIES BY MEASURED TRIGLYCERIDE AND NON-HDLCHOLESTEROL CONCENTRATIONS WITH INCREASED CALCULATED LDL SEENIN HIGHER TRIGLYCERIDE OR LOWER NON-HDL SPECIMENS. FOR MOREINFORMATION, SEE CLIENT ANNOUNCEMENT AT [email or web address] RATIO LDL/HDL (test code = 8) 3.29 RATIO <3.22 H UNLESS OTHERW ISE INDICATED, ALL TESTING PERFORMED AT [facility] [address] [place] [id number] [employer] SUPERVISOR: CARLOS GUTHRIE M.D. CLIA NUMBER [id number] [place]. [id number] HEMOGLOBIN [id number] 03:16:04* Test Item Value Reference Range Interpretation Comme nts HEMOGLOBIN A1c (test code = 69906) 6.8 % 4.2-5.6 H [employer] GUIDELINES FOR HGB A1C: PREDIABETES/INCREASED RISK . . . . . . . 5.7-6.4% DIAGNOSIS OF DIABETES . . . . . . . . . >=6.5% WITH CONFIRMATION OR APPROPRIATE SYMPTOMS NOTE: ASSAY MAY BE AFFECTED BY HEMOGLOBINOPATHIES (SICKLE CELL ANEMIA, S-C DISEASE, OTHERS) OR ARTIFICIALLY LOWERED BY DECREASED RED CELL SURVIVAL (HEMOLYTIC ANEMIAS, BLOOD LOSS, ETC.). CONSIDER ALTERNATE TESTING OR LABORATORY CONSULTATION. CBC W/AUTO DIFF WITH [id number] 02:20:22* Test Item Value Reference Range Interpretation Comme nts WBC (test code = 1001) 8.1 K/UL 3.5-11.0 RBC (test code = 1002) 4.46 M/UL 3.80-5.40 HEMOGLOBIN (test code = 1003) 14.0 G/DL 11.5-15.5 HEMATOCRIT (test code = 1004) 40.1 % 34.0-45.0 MCV (test code = 1005) 89.9 fL 80.0-99.0 MCH (test code = 1006) 31.4 PG 25.0-33.0 MCHC (test code = 1007) 34.9 G/DL 31.0-36.0 RDW (test code = 1038) 13.2 % 11.5-15.0 NEUTROPHILS (test code = 1008) 59.0 % LYMPHOCYTES (test code = 1010) 32.8 % MONOCYTES (test code = 1011) 5.4 % EOSINOPHILS (test code = 1012) 2.0 % BASOPHILS (test code = 1013) 0.6 % IMMATURE GRANULOCYTES (test code = 1036) 0.2 % NUCLEATED RBCS (test code = 1065) 0.0 /100 WBC'S See_Comment [Automated [employer]] The system which generated this result transmitted reference range: 0.0. The reference range was not used to interpret this result as normal/abnormal. PLATELET COUNT (test code = 1015) 309 K/UL 130-400 ABSOLUTE NEUTROPHILS (test code = 1066) 4.80 K/UL 1.50-7.50 ABSOLUTE LYMPHOCYTES (test code = 1067) 2.67 K/UL 1.00-4.00 ABSOLUTE MONOCYTES (test code = 1068) 0.44 K/UL 0.20-1.00 ABSOLUTE EOSINOPHILS (test code = 1040) 0.16 K/UL 0.00-0.50 ABSOLUTE BASOPHILS (test code = 1069) 0.05 K/UL 0.00-0.20 ABS IMMATURE GRANULOCYTES (test code = 1020) 0.02 K/UL 0.00-0.10 ABS NUCLEATED RBCS (test code = 07983) 0.00 K/UL 0.00-0.11 CBC W/AUTO [id number] 00:00:00* Test Item Value Reference Range Interpretation Comme nts WBC (test code = 1001) 8.1 K/UL RBC (test code = 1002) 4.46 M/UL HEMOGLOBIN (test code = 1003) 14.0 G/DL HEMATOCRIT (test code = 1004) 40.1 % MCV (test code = 1005) 89.9 fL MCH (test code = 1006) 31.4 PG MCHC (test code = 1007) 34.9 G/DL RDW (test code = 1038) 13.2 % NEUTROPHILS (test code = 1008) 59.0 % LYMPHOCYTES (test code = 1010) 32.8 % MONOCYTES (test code = 1011) 5.4 % EOSINOPHILS (test code = 1012) 2.0 % BASOPHILS (test code = 1013) 0.6 % IMMATURE GRANULOCYTES (test code = 1036) 0.2 % NUCLEATED RBCS (test code = 1065) 0.0 /100WBC'S PLATELET COUNT (test code = 1015) 309 K/UL ABSOLUTE NEUTROPHILS (test c ode = 1066) 4.80 K/UL ABSOLUTE LYMPHOCYTES (test c ode = 1067) 2.67 K/UL ABSOLUTE MONOCYTES (test cod e = 1068) 0.44 K/UL ABSOLUTE EOSINOPHILS (test c ode = 1040) 0.16 K/UL ABSOLUTE BASOPHILS (test cod e = 1069) 0.05 K/UL ABS IMMATURE GRANULOCYTES (t est code = 1020) 0.02 K/UL ABS NUCLEATED RBCS (test cod e = 40221) 0.00 K/UL Cristian F AustinCOMPREHENSIVE METABOLIC [id number] 00:00:00* Test Item Value Reference Range Interpretation Comme nts GLUCOSE (test code = 2217) 147 MG/DL BUN (test code = 2208) 14 MG/DL CREATININE (test code = 2214) 0.68 MG/DL eGFR (2020 CKD-EPI) (test co de = 47834) 98 ML/MIN/1.73 CALC BUN/CREAT (test code = 2235) 21 RATIO SODIUM (test code = 2231) 131 MEQ/L POTASSIUM (test code = 2228) 4.2 MEQ/L CHLORIDE (test code = 2215) 92 MEQ/L CARBON DIOXIDE (test code = 2206) 25 MEQ/L CALCIUM (test code = 2209) 10.1 MG/DL PROTEIN, TOTAL (test code = 2229) 7.7 G/DL ALBUMIN (test code = 2201) 4.4 G/DL CALC GLOBULIN (test code = 2240) 3.3 G/DL CALC A/G RATIO (test code = 2234) 1.3 RATIO BILIRUBIN, TOTAL (test code = 2207) <0.2 MG/DL ALKALINE PHOSPHATASE (test code = 2204) 103 U/L AST (test code = 2218) 20 U/L ALT (test code = 2219) 28 U/L Cristian [id number] 00:00:00* Test Item Value Reference Range Interpretation Comme chiara TSH, THIRD GENERATION (test code = 2821) 17.200 UIU/ML Cristian StollLIPID [id number] 00:00:00* Test Item Value Reference Range Interpretation Comme nts CHOLESTEROL (test code = 2210) 299 MG/DL TRIGLYCERIDES (test code = 2232) 135 MG/DL HDL CHOLESTEROL (test code = 2220) 63 MG/DL CALC LDL CHOL (test code = 2237) 207 MG/DL RISK RATIO LDL/HDL (test cod e = 2238) 3.29 RATIO Cristian StollHEMOGLOBIN [id number] 00:00:00* Test Item Value Reference Range Interpretation Comme nts HEMOGLOBIN A1c (test code = 28804) 6.8 % Cristian So AustinHEMOGLOBIN [id number] 00:00:00* Test Item Value Reference Range Interpretation Comme nts HEMOGLOBIN A1c (test code = 26627) 6.8 % Cristian StollCBC W/AUTO [id number] 00:00:00* Test Item Value Reference Range Interpretation Comme nts WBC (test code = 1001) 8.1 K/UL RBC (test code = 1002) 4.46 M/UL HEMOGLOBIN (test code = 1003) 14.0 G/DL HEMATOCRIT (test code = 1004) 40.1 % MCV (test code = 1005) 89.9 fL MCH (test code = 1006) 31.4 PG MCHC (test code = 1007) 34.9 G/DL RDW (test code = 1038) 13.2 % NEUTROPHILS (test code = 1008) 59.0 % LYMPHOCYTES (test code = 1010) 32.8 % MONOCYTES (test code = 1011) 5.4 % EOSINOPHILS (test code = 1012) 2.0 % BASOPHILS (test code = 1013) 0.6 % IMMATURE GRANULOCYTES (test code = 1036) 0.2 % NUCLEATED RBCS (test code = 1065) 0.0 /100WBC'S PLATELET COUNT (test code = 1015) 309 K/UL ABSOLUTE NEUTROPHILS (test c ode = 1066) 4.80 K/UL ABSOLUTE LYMPHOCYTES (test c ode = 1067) 2.67 K/UL ABSOLUTE MONOCYTES (test cod e = 1068) 0.44 K/UL ABSOLUTE EOSINOPHILS (test c ode = 1040) 0.16 K/UL ABSOLUTE BASOPHILS (test cod e = 1069) 0.05 K/UL ABS IMMATURE GRANULOCYTES (t est code = 1020) 0.02 K/UL ABS NUCLEATED RBCS (test cod e = 24588) 0.00 K/UL Cristian StollCOMPREHENSIVE METABOLIC [id number] 00:00:00* Test Item Value Reference Range Interpretation Comme nts GLUCOSE (test code = 2217) 147 MG/DL BUN (test code = 2208) 14 MG/DL CREATININE (test code = 2214) 0.68 MG/DL eGFR (2020 CKD-EPI) (test co de = 24551) 98 ML/MIN/1.73 CALC BUN/CREAT (test code = 2235) 21 RATIO SODIUM (test code = 2231) 131 MEQ/L POTASSIUM (test code = 2228) 4.2 MEQ/L CHLORIDE (test code = 2215) 92 MEQ/L CARBON DIOXIDE (test code = 2206) 25 MEQ/L CALCIUM (test code = 2209) 10.1 MG/DL PROTEIN, TOTAL (test code = 2229) 7.7 G/DL ALBUMIN (test code = 2201) 4.4 G/DL CALC GLOBULIN (test code = 2240) 3.3 G/DL CALC A/G RATIO (test code = 2234) 1.3 RATIO BILIRUBIN, TOTAL (test code = 2207) <0.2 MG/DL ALKALINE PHOSPHATASE (test code = 2204) 103 U/L AST (test code = 2218) 20 U/L ALT (test code = 2219) 28 U/L Cristian [id number] 00:00:00* Test Item Value Reference Range Interpretation Comme nts TSH, THIRD GENERATION (test code = 2821) 17.200 UIU/ML Cristian StollLIPID [id number] 00:00:00* Test Item Value Reference Range Interpretation Comme nts CHOLESTEROL (test code = 2210) 299 MG/DL TRIGLYCERIDES (test code = 2232) 135 MG/DL HDL CHOLESTEROL (test code = 2220) 63 MG/DL CALC LDL CHOL (test code = 2237) 207 MG/DL RISK RATIO LDL/HDL (test cod e = 2238) 3.29 RATIO Cristian StollCBC W/AUTO [id number] 00:00:00* Test Item Value Reference Range Interpretation Comme nts WBC (test code = 1001) 8.1 K/UL RBC (test code = 1002) 4.46 M/UL HEMOGLOBIN (test code = 1003) 14.0 G/DL HEMATOCRIT (test code = 1004) 40.1 % MCV (test code = 1005) 89.9 fL MCH (test code = 1006) 31.4 PG MCHC (test code = 1007) 34.9 G/DL RDW (test code = 1038) 13.2 % NEUTROPHILS (test code = 1008) 59.0 % LYMPHOCYTES (test code = 1010) 32.8 % MONOCYTES (test code = 1011) 5.4 % EOSINOPHILS (test code = 1012) 2.0 % BASOPHILS (test code = 1013) 0.6 % IMMATURE GRANULOCYTES (test code = 1036) 0.2 % NUCLEATED RBCS (test code = 1065) 0.0 /100WBC'S PLATELET COUNT (test code = 1015) 309 K/UL ABSOLUTE NEUTROPHILS (test c ode = 1066) 4.80 K/UL ABSOLUTE LYMPHOCYTES (test c ode = 1067) 2.67 K/UL ABSOLUTE MONOCYTES (test cod e = 1068) 0.44 K/UL ABSOLUTE EOSINOPHILS (test c ode = 1040) 0.16 K/UL ABSOLUTE BASOPHILS (test cod e = 1069) 0.05 K/UL ABS IMMATURE GRANULOCYTES (t est code = 1020) 0.02 K/UL ABS NUCLEATED RBCS (test cod e = 46684) 0.00 K/UL Cristian StollHEMOGLOBIN [id number] 00:00:00* Test Item Value Reference Range Interpretation Comme nts HEMOGLOBIN A1c (test code = 89445) 6.8 % Cristian StollCBC W/AUTO [id number] 00:00:00* Test Item Value Reference Range Interpretation Comme nts WBC (test code = 1001) 8.1 K/UL RBC (test code = 1002) 4.46 M/UL HEMOGLOBIN (test code = 1003) 14.0 G/DL HEMATOCRIT (test code = 1004) 40.1 % MCV (test code = 1005) 89.9 fL MCH (test code = 1006) 31.4 PG MCHC (test code = 1007) 34.9 G/DL RDW (test code = 1038) 13.2 % NEUTROPHILS (test code = 1008) 59.0 % LYMPHOCYTES (test code = 1010) 32.8 % MONOCYTES (test code = 1011) 5.4 % EOSINOPHILS (test code = 1012) 2.0 % BASOPHILS (test code = 1013) 0.6 % IMMATURE GRANULOCYTES (test code = 1036) 0.2 % NUCLEATED RBCS (test code = 1065) 0.0 /100WBC'S PLATELET COUNT (test code = 1015) 309 K/UL ABSOLUTE NEUTROPHILS (test c ode = 1066) 4.80 K/UL ABSOLUTE LYMPHOCYTES (test c ode = 1067) 2.67 K/UL ABSOLUTE MONOCYTES (test cod e = 1068) 0.44 K/UL ABSOLUTE EOSINOPHILS (test c ode = 1040) 0.16 K/UL ABSOLUTE BASOPHILS (test cod e = 1069) 0.05 K/UL ABS IMMATURE GRANULOCYTES (t est code = 1020) 0.02 K/UL ABS NUCLEATED RBCS (test cod e = 01627) 0.00 K/UL Cristian StollCOMPREHENSIVE METABOLIC [id number] 00:00:00* Test Item Value Reference Range Interpretation Comme nts GLUCOSE (test code = 2217) 147 MG/DL BUN (test code = 2208) 14 MG/DL CREATININE (test code = 2214) 0.68 MG/DL eGFR (2020 CKD-EPI) (test co de = 70430) 98 ML/MIN/1.73 CALC BUN/CREAT (test code = 2235) 21 RATIO SODIUM (test code = 2231) 131 MEQ/L POTASSIUM (test code = 2228) 4.2 MEQ/L CHLORIDE (test code = 2215) 92 MEQ/L CARBON DIOXIDE (test code = 2206) 25 MEQ/L CALCIUM (test code = 2209) 10.1 MG/DL PROTEIN, TOTAL (test code = 2229) 7.7 G/DL ALBUMIN (test code = 2201) 4.4 G/DL CALC GLOBULIN (test code = 2240) 3.3 G/DL CALC A/G RATIO (test code = 2234) 1.3 RATIO BILIRUBIN, TOTAL (test code = 2207) <0.2 MG/DL ALKALINE PHOSPHATASE (test code = 2204) 103 U/L AST (test code = 2218) 20 U/L ALT (test code = 2219) 28 U/L Cristian [id number] 00:00:00* Test Item Value Reference Range Interpretation Comme nts TSH, THIRD GENERATION (test code = 2821) 17.200 UIU/ML Cristian So PortlandLIPID [id number] 00:00:00* Test Item Value Reference Range Interpretation Comme nts CHOLESTEROL (test code = 2210) 299 MG/DL TRIGLYCERIDES (test code = 2232) 135 MG/DL HDL CHOLESTEROL (test code = 2220) 63 MG/DL CALC LDL CHOL (test code = 2237) 207 MG/DL RISK RATIO LDL/HDL (test cod e = 2238) 3.29 RATIO Cristian So PortlandCOMPREHENSIVE METABOLIC [id number] 00:00:00* Test Item Value Reference Range Interpretation Comme nts GLUCOSE (test code = 2217) 147 MG/DL BUN (test code = 2208) 14 MG/DL CREATININE (test code = 2214) 0.68 MG/DL eGFR (2020 CKD-EPI) (test co de = 41666) 98 ML/MIN/1.73 CALC BUN/CREAT (test code = 2235) 21 RATIO SODIUM (test code = 2231) 131 MEQ/L POTASSIUM (test code = 2228) 4.2 MEQ/L CHLORIDE (test code = 2215) 92 MEQ/L CARBON DIOXIDE (test code = 2206) 25 MEQ/L CALCIUM (test code = 2209) 10.1 MG/DL PROTEIN, TOTAL (test code = 2229) 7.7 G/DL ALBUMIN (test code = 2201) 4.4 G/DL CALC GLOBULIN (test code = 2240) 3.3 G/DL CALC A/G RATIO (test code = 2234) 1.3 RATIO BILIRUBIN, TOTAL (test code = 2207) <0.2 MG/DL ALKALINE PHOSPHATASE (test code = 2204) 103 U/L AST (test code = 2218) 20 U/L ALT (test code = 2219) 28 U/L Cristian [id number] 00:00:00* Test Item Value Reference Range Interpretation Comme chiara TSH, THIRD GENERATION (test code = 2821) 17.200 UIU/ML Cristian StollLIPID [id number] 00:00:00* Test Item Value Reference Range Interpretation Comme nts CHOLESTEROL (test code = 2210) 299 MG/DL TRIGLYCERIDES (test code = 2232) 135 MG/DL HDL CHOLESTEROL (test code = 2220) 63 MG/DL CALC LDL CHOL (test code = 2237) 207 MG/DL RISK RATIO LDL/HDL (test cod e = 2238) 3.29 RATIO Cristian StollHEMOGLOBIN [id number] 00:00:00* Test Item Value Reference Range Interpretation Comme chiara HEMOGLOBIN A1c (test code = 27124) 6.8 % Cristian StollCBC W/AUTO [id number] 00:00:00* Test Item Value Reference Range Interpretation Comme chiara WBC (test code = 1001) 8.1 K/UL RBC (test code = 1002) 4.46 M/UL HEMOGLOBIN (test code = 1003) 14.0 G/DL HEMATOCRIT (test code = 1004) 40.1 % MCV (test code = 1005) 89.9 fL MCH (test code = 1006) 31.4 PG MCHC (test code = 1007) 34.9 G/DL RDW (test code = 1038) 13.2 % NEUTROPHILS (test code = 1008) 59.0 % LYMPHOCYTES (test code = 1010) 32.8 % MONOCYTES (test code = 1011) 5.4 % EOSINOPHILS (test code = 1012) 2.0 % BASOPHILS (test code = 1013) 0.6 % IMMATURE GRANULOCYTES (test code = 1036) 0.2 % NUCLEATED RBCS (test code = 1065) 0.0 /100WBC'S PLATELET COUNT (test code = 1015) 309 K/UL ABSOLUTE NEUTROPHILS (test c ode = 1066) 4.80 K/UL ABSOLUTE LYMPHOCYTES (test c ode = 1067) 2.67 K/UL ABSOLUTE MONOCYTES (test cod e = 1068) 0.44 K/UL ABSOLUTE EOSINOPHILS (test c ode = 1040) 0.16 K/UL ABSOLUTE BASOPHILS (test cod e = 1069) 0.05 K/UL ABS IMMATURE GRANULOCYTES (t est code = 1020) 0.02 K/UL ABS NUCLEATED RBCS (test cod e = 49932) 0.00 K/UL Cristian So JermanCOMPREHENSIVE METABOLIC [id number] 00:00:00* Test Item Value Reference Range Interpretation Comme nts GLUCOSE (test code = 2217) 147 MG/DL BUN (test code = 2208) 14 MG/DL CREATININE (test code = 2214) 0.68 MG/DL eGFR (2020 CKD-EPI) (test co de = 07488) 98 ML/MIN/1.73 CALC BUN/CREAT (test code = 2235) 21 RATIO SODIUM (test code = 2231) 131 MEQ/L POTASSIUM (test code = 2228) 4.2 MEQ/L CHLORIDE (test code = 2215) 92 MEQ/L CARBON DIOXIDE (test code = 2206) 25 MEQ/L CALCIUM (test code = 2209) 10.1 MG/DL PROTEIN, TOTAL (test code = 2229) 7.7 G/DL ALBUMIN (test code = 2201) 4.4 G/DL CALC GLOBULIN (test code = 2240) 3.3 G/DL CALC A/G RATIO (test code = 2234) 1.3 RATIO BILIRUBIN, TOTAL (test code = 2207) <0.2 MG/DL ALKALINE PHOSPHATASE (test code = 2204) 103 U/L AST (test code = 2218) 20 U/L ALT (test code = 2219) 28 U/L Cristian So [id number] 00:00:00* Test Item Value Reference Range Interpretation Comme nts TSH, THIRD GENERATION (test code = 2821) 17.200 UIU/ML Cristian StollLIPID [id number] 00:00:00* Test Item Value Reference Range Interpretation Comme nts CHOLESTEROL (test code = 2210) 299 MG/DL TRIGLYCERIDES (test code = 2232) 135 MG/DL HDL CHOLESTEROL (test code = 2220) 63 MG/DL CALC LDL CHOL (test code = 2237) 207 MG/DL RISK RATIO LDL/HDL (test cod e = 2238) 3.29 RATIO Cristian StollHEMOGLOBIN [id number] 00:00:00* Test Item Value Reference Range Interpretation Comme nts HEMOGLOBIN A1c (test code = 07556) 6.8 % Cristian StollCBC W/AUTO [id number] 00:00:00* Test Item Value Reference Range Interpretation Comme nts WBC (test code = 1001) 8.1 K/UL RBC (test code = 1002) 4.46 M/UL HEMOGLOBIN (test code = 1003) 14.0 G/DL HEMATOCRIT (test code = 1004) 40.1 % MCV (test code = 1005) 89.9 fL MCH (test code = 1006) 31.4 PG MCHC (test code = 1007) 34.9 G/DL RDW (test code = 1038) 13.2 % NEUTROPHILS (test code = 1008) 59.0 % LYMPHOCYTES (test code = 1010) 32.8 % MONOCYTES (test code = 1011) 5.4 % EOSINOPHILS (test code = 1012) 2.0 % BASOPHILS (test code = 1013) 0.6 % IMMATURE GRANULOCYTES (test code = 1036) 0.2 % NUCLEATED RBCS (test code = 1065) 0.0 /100WBC'S PLATELET COUNT (test code = 1015) 309 K/UL ABSOLUTE NEUTROPHILS (test c ode = 1066) 4.80 K/UL ABSOLUTE LYMPHOCYTES (test c ode = 1067) 2.67 K/UL ABSOLUTE MONOCYTES (test cod e = 1068) 0.44 K/UL ABSOLUTE EOSINOPHILS (test c ode = 1040) 0.16 K/UL ABSOLUTE BASOPHILS (test cod e = 1069) 0.05 K/UL ABS IMMATURE GRANULOCYTES (t est code = 1020) 0.02 K/UL ABS NUCLEATED RBCS (test cod e = 91242) 0.00 K/UL Cristian F AustinCOMPREHENSIVE METABOLIC [id number] 00:00:00* Test Item Value Reference Range Interpretation Comme nts GLUCOSE (test code = 2217) 147 MG/DL BUN (test code = 2208) 14 MG/DL CREATININE (test code = 2214) 0.68 MG/DL eGFR (2020 CKD-EPI) (test co de = 28560) 98 ML/MIN/1.73 CALC BUN/CREAT (test code = 2235) 21 RATIO SODIUM (test code = 2231) 131 MEQ/L POTASSIUM (test code = 2228) 4.2 MEQ/L CHLORIDE (test code = 2215) 92 MEQ/L CARBON DIOXIDE (test code = 2206) 25 MEQ/L CALCIUM (test code = 2209) 10.1 MG/DL PROTEIN, TOTAL (test code = 222) 7.7 G/DL ALBUMIN (test code = 2201) 4.4 G/DL CALC GLOBULIN (test code = 2240) 3.3 G/DL CALC A/G RATIO (test code = 2234) 1.3 RATIO BILIRUBIN, TOTAL (test code = 2207) <0.2 MG/DL ALKALINE PHOSPHATASE (test code = 2204) 103 U/L AST (test code = 2218) 20 U/L ALT (test code = 2219) 28 U/L Cristian [id number] 00:00:00* Test Item Value Reference Range Interpretation Comme nts TSH, THIRD GENERATION (test code = 2821) 17.200 UIU/ML Cristian StollLIPID [id number] 00:00:00* Test Item Value Reference Range Interpretation Comme nts CHOLESTEROL (test code = 2210) 299 MG/DL TRIGLYCERIDES (test code = 2232) 135 MG/DL HDL CHOLESTEROL (test code = 2220) 63 MG/DL CALC LDL CHOL (test code = 2237) 207 MG/DL RISK RATIO LDL/HDL (test cod e = 2238) 3.29 RATIO Cristian StollHEMOGLOBIN [id number] 00:00:00* Test Item Value Reference Range Interpretation Comme nts HEMOGLOBIN A1c (test code = 93417) 6.8 % Cristian StollCBC W/AUTO [id number] 00:00:00* Test Item Value Reference Range Interpretation Comme nts WBC (test code = 1001) 8.1 K/UL RBC (test code = 1002) 4.46 M/UL HEMOGLOBIN (test code = 1003) 14.0 G/DL HEMATOCRIT (test code = 1004) 40.1 % MCV (test code = 1005) 89.9 fL MCH (test code = 1006) 31.4 PG MCHC (test code = 1007) 34.9 G/DL RDW (test code = 1038) 13.2 % NEUTROPHILS (test code = 1008) 59.0 % LYMPHOCYTES (test code = 1010) 32.8 % MONOCYTES (test code = 1011) 5.4 % EOSINOPHILS (test code = 1012) 2.0 % BASOPHILS (test code = 1013) 0.6 % IMMATURE GRANULOCYTES (test code = 1036) 0.2 % NUCLEATED RBCS (test code = 1065) 0.0 /100WBC'S PLATELET COUNT (test code = 1015) 309 K/UL ABSOLUTE NEUTROPHILS (test c ode = 1066) 4.80 K/UL ABSOLUTE LYMPHOCYTES (test c ode = 1067) 2.67 K/UL ABSOLUTE MONOCYTES (test cod e = 1068) 0.44 K/UL ABSOLUTE EOSINOPHILS (test c ode = 1040) 0.16 K/UL ABSOLUTE BASOPHILS (test cod e = 1069) 0.05 K/UL ABS IMMATURE GRANULOCYTES (t est code = 1020) 0.02 K/UL ABS NUCLEATED RBCS (test cod e = 91492) 0.00 K/UL Cristian F AustinCOMPREHENSIVE METABOLIC [id number] 00:00:00* Test Item Value Reference Range Interpretation Comme nts GLUCOSE (test code = 2217) 147 MG/DL BUN (test code = 2208) 14 MG/DL CREATININE (test code = 2214) 0.68 MG/DL eGFR (2020 CKD-EPI) (test co de = 15379) 98 ML/MIN/1.73 CALC BUN/CREAT (test code = 2235) 21 RATIO SODIUM (test code = 2231) 131 MEQ/L POTASSIUM (test code = 2228) 4.2 MEQ/L CHLORIDE (test code = 2215) 92 MEQ/L CARBON DIOXIDE (test code = 2206) 25 MEQ/L CALCIUM (test code = 2209) 10.1 MG/DL PROTEIN, TOTAL (test code = 2229) 7.7 G/DL ALBUMIN (test code = 2201) 4.4 G/DL CALC GLOBULIN (test code = 2240) 3.3 G/DL CALC A/G RATIO (test code = 2234) 1.3 RATIO BILIRUBIN, TOTAL (test code = 2207) <0.2 MG/DL ALKALINE PHOSPHATASE (test code = 2204) 103 U/L AST (test code = 2218) 20 U/L ALT (test code = 2219) 28 U/L Cristian [id number] 00:00:00* Test Item Value Reference Range Interpretation Comme nts TSH, THIRD GENERATION (test code = 2821) 17.200 UIU/ML Cristian StollLIPID [id number] 00:00:00* Test Item Value Reference Range Interpretation Comme nts CHOLESTEROL (test code = 2210) 299 MG/DL TRIGLYCERIDES (test code = 2232) 135 MG/DL HDL CHOLESTEROL (test code = 2220) 63 MG/DL CALC LDL CHOL (test code = 2237) 207 MG/DL RISK RATIO LDL/HDL (test cod e = 2238) 3.29 RATIO Cristian StollHEMOGLOBIN [id number] 00:00:00* Test Item Value Reference Range Interpretation Comme chiara HEMOGLOBIN A1c (test code = 79528) 6.8 % Cristian StollCBC W/AUTO [id number] 00:00:00* Test Item Value Reference Range Interpretation Comme nts WBC (test code = 1001) 8.1 K/UL RBC (test code = 1002) 4.46 M/UL HEMOGLOBIN (test code = 1003) 14.0 G/DL HEMATOCRIT (test code = 1004) 40.1 % MCV (test code = 1005) 89.9 fL MCH (test code = 1006) 31.4 PG MCHC (test code = 1007) 34.9 G/DL RDW (test code = 1038) 13.2 % NEUTROPHILS (test code = 1008) 59.0 % LYMPHOCYTES (test code = 1010) 32.8 % MONOCYTES (test code = 1011) 5.4 % EOSINOPHILS (test code = 1012) 2.0 % BASOPHILS (test code = 1013) 0.6 % IMMATURE GRANULOCYTES (test code = 1036) 0.2 % NUCLEATED RBCS (test code = 1065) 0.0 /100WBC'S PLATELET COUNT (test code = 1015) 309 K/UL ABSOLUTE NEUTROPHILS (test c ode = 1066) 4.80 K/UL ABSOLUTE LYMPHOCYTES (test c ode = 1067) 2.67 K/UL ABSOLUTE MONOCYTES (test cod e = 1068) 0.44 K/UL ABSOLUTE EOSINOPHILS (test c ode = 1040) 0.16 K/UL ABSOLUTE BASOPHILS (test cod e = 1069) 0.05 K/UL ABS IMMATURE GRANULOCYTES (t est code = 1020) 0.02 K/UL ABS NUCLEATED RBCS (test cod e = 33714) 0.00 K/UL Cristian StollCOMPREHENSIVE METABOLIC [id number] 00:00:00* Test Item Value Reference Range Interpretation Comme nts GLUCOSE (test code = 2217) 147 MG/DL BUN (test code = 2208) 14 MG/DL CREATININE (test code = 2214) 0.68 MG/DL eGFR (2020 CKD-EPI) (test co de = 48320) 98 ML/MIN/1.73 CALC BUN/CREAT (test code = 2235) 21 RATIO SODIUM (test code = 2231) 131 MEQ/L POTASSIUM (test code = 2228) 4.2 MEQ/L CHLORIDE (test code = 2215) 92 MEQ/L CARBON DIOXIDE (test code = 2206) 25 MEQ/L CALCIUM (test code = 2209) 10.1 MG/DL PROTEIN, TOTAL (test code = 2229) 7.7 G/DL ALBUMIN (test code = 2201) 4.4 G/DL CALC GLOBULIN (test code = 2240) 3.3 G/DL CALC A/G RATIO (test code = 2234) 1.3 RATIO BILIRUBIN, TOTAL (test code = 2207) <0.2 MG/DL ALKALINE PHOSPHATASE (test code = 2204) 103 U/L AST (test code = 2218) 20 U/L ALT (test code = 2219) 28 U/L Cristian [id number] 00:00:00* Test Item Value Reference Range Interpretation Comme nts TSH, THIRD GENERATION (test code = 2821) 17.200 UIU/ML Cristian StollLIPID [id number] 00:00:00* Test Item Value Reference Range Interpretation Comme nts CHOLESTEROL (test code = 2210) 299 MG/DL TRIGLYCERIDES (test code = 2232) 135 MG/DL HDL CHOLESTEROL (test code = 2220) 63 MG/DL CALC LDL CHOL (test code = 2237) 207 MG/DL RISK RATIO LDL/HDL (test cod e = 2238) 3.29 RATIO Cristian StollHEMOGLOBIN [id number] 00:00:00* Test Item Value Reference Range Interpretation Comme nts HEMOGLOBIN A1c (test code = 09682) 6.8 % Cristian StollCBC W/AUTO [id number] 00:00:00* Test Item Value Reference Range Interpretation Comme nts WBC (test code = 1001) 8.1 K/UL RBC (test code = 1002) 4.46 M/UL HEMOGLOBIN (test code = 1003) 14.0 G/DL HEMATOCRIT (test code = 1004) 40.1 % MCV (test code = 1005) 89.9 fL MCH (test code = 1006) 31.4 PG MCHC (test code = 1007) 34.9 G/DL RDW (test code = 1038) 13.2 % NEUTROPHILS (test code = 1008) 59.0 % LYMPHOCYTES (test code = 1010) 32.8 % MONOCYTES (test code = 1011) 5.4 % EOSINOPHILS (test code = 1012) 2.0 % BASOPHILS (test code = 1013) 0.6 % IMMATURE GRANULOCYTES (test code = 1036) 0.2 % NUCLEATED RBCS (test code = 1065) 0.0 /100WBC'S PLATELET COUNT (test code = 1015) 309 K/UL ABSOLUTE NEUTROPHILS (test c ode = 1066) 4.80 K/UL ABSOLUTE LYMPHOCYTES (test c ode = 1067) 2.67 K/UL ABSOLUTE MONOCYTES (test cod e = 1068) 0.44 K/UL ABSOLUTE EOSINOPHILS (test c ode = 1040) 0.16 K/UL ABSOLUTE BASOPHILS (test cod e = 1069) 0.05 K/UL ABS IMMATURE GRANULOCYTES (t est code = 1020) 0.02 K/UL ABS NUCLEATED RBCS (test cod e = 48393) 0.00 K/UL Cristian StollCOMPREHENSIVE METABOLIC [id number] 00:00:00* Test Item Value Reference Range Interpretation Comme nts GLUCOSE (test code = 2217) 147 MG/DL BUN (test code = 2208) 14 MG/DL CREATININE (test code = 2214) 0.68 MG/DL eGFR (2020 CKD-EPI) (test co de = 15187) 98 ML/MIN/1.73 CALC BUN/CREAT (test code = 2235) 21 RATIO SODIUM (test code = 223) 131 MEQ/L POTASSIUM (test code = 2228) 4.2 MEQ/L CHLORIDE (test code = 2215) 92 MEQ/L CARBON DIOXIDE (test code = 2206) 25 MEQ/L CALCIUM (test code = 2209) 10.1 MG/DL PROTEIN, TOTAL (test code = 2228) 7.7 G/DL ALBUMIN (test code = 2200) 4.4 G/DL CALC GLOBULIN (test code = 2240) 3.3 G/DL CALC A/G RATIO (test code = 2234) 1.3 RATIO BILIRUBIN, TOTAL (test code = 2206) <0.2 MG/DL ALKALINE PHOSPHATASE (test code = 4) 103 U/L AST (test code = 2218) 20 U/L ALT (test code = 2219) 28 U/L Cristian [id number] 00:00:00* Test Item Value Reference Range Interpretation Comme nts TSH, THIRD GENERATION (test code = 2821) 17.200 UIU/ML Cristian StollLIPID [id number] 00:00:00* Test Item Value Reference Range Interpretation Comme nts CHOLESTEROL (test code = 2210) 299 MG/DL TRIGLYCERIDES (test code = 2232) 135 MG/DL HDL CHOLESTEROL (test code = 2220) 63 MG/DL CALC LDL CHOL (test code = 2237) 207 MG/DL RISK RATIO LDL/HDL (test cod e = 2238) 3.29 RATIO Cristian StollHEMOGLOBIN [id number] 00:00:00* Test Item Value Reference Range Interpretation Comme nts HEMOGLOBIN A1c (test code = 99721) 6.8 % Cristian StollTSH, THIRD [id number] 02:57:49* Test Item Value Reference Range Interpretation Comme nts TSH, THIRD GENERATION (test code = 2821) 6.350 UIU/ML 0.400-4.100 H LIPID [id number] 01:09:34* Test Item Value Reference Range Interpretation Comme nts CHOLESTEROL (test code = 2210) 268 MG/DL <200 H TRIGLYCERIDES (test code = 2232) 100 MG/DL <150 HDL CHOLESTEROL (test code = 2220) 66 MG/DL >39 CALC LDL CHOL (test code = 2237) 180 MG/DL <100 H NOTE: CALCULATED LDL IS BASED ON MELBA-OLVERA METHOD WHICHINCLUDES ADJUSTABLE TRIGLYCERIDE:VLDL CHOLESTEROL RATIO.THIS FACTOR VARIES BY MEASURED TRIGLYCERIDE AND NON-HDLCHOLESTEROL CONCENTRATIONS WITH INCREASED CALCULATED LDL SEENIN HIGHER TRIGLYCERIDE OR LOWER NON-HDL SPECIMENS. FOR MOREINFORMATION, SEE CLIENT ANNOUNCEMENT AT [email or web address] RISK RATIO LDL/HDL (test code = 2238) 2.73 RATIO <3.22 [facility] has i mportant pathology staff changes effective 05/07/2022. New pathology staff will provide uninterrupted, excellent patient care and clinical consultation. See URL: [email or web address]. UNLESS OTHERWISE INDICATED, ALL TESTING PERFORMED AT [facility] [address] [place] [address] [employer]OUNDS MAINTENANCE SUPERVISOR: CARLOS GUTHRIE M.D. CLIA NUMBER [id number] [place]. [id number] LIPID [id number] 00:00:00* Test Item Value Reference Range Interpretation Comme nts CHOLESTEROL (test code = 2210) 268 MG/DL TRIGLYCERIDES (test code = 2232) 100 MG/DL HDL CHOLESTEROL (test code = 2220) 66 MG/DL CALC LDL CHOL (test code = 2237) 180 MG/DL RISK RATIO LDL/HDL (test cod e = 2238) 2.73 RATIO Cristian StollTSH, THIRD [id number] 00:00:00* Test Item Value Reference Range Interpretation Comme nts TSH, THIRD GENERATION (test code = 2821) 6.350 UIU/ML Cristian StollLIPID [id number] 00:00:00* Test Item Value Reference Range Interpretation Comme nts CHOLESTEROL (test code = 2210) 268 MG/DL TRIGLYCERIDES (test code = 2232) 100 MG/DL HDL CHOLESTEROL (test code = 2220) 66 MG/DL CALC LDL CHOL (test code = 2237) 180 MG/DL RISK RATIO LDL/HDL (test cod e = 2238) 2.73 RATIO ISMAEL Titus [id number] 00:00:00* Test Item Value Reference Range Interpretation Comme nts TSH, THIRD GENERATION (test code = 2821) 6.350 UIU/ML Cristian StollLIPID [id number] 00:00:00* Test Item Value Reference Range Interpretation Comme nts CHOLESTEROL (test code = 2210) 268 MG/DL TRIGLYCERIDES (test code = 2232) 100 MG/DL HDL CHOLESTEROL (test code = 2220) 66 MG/DL CALC LDL CHOL (test code = 2237) 180 MG/DL RISK RATIO LDL/HDL (test cod e = 2238) 2.73 RATIO Cristian StollLIPID [id number] 00:00:00* Test Item Value Reference Range Interpretation Comme nts CHOLESTEROL (test code = 2210) 268 MG/DL TRIGLYCERIDES (test code = 2232) 100 MG/DL HDL CHOLESTEROL (test code = 2220) 66 MG/DL CALC LDL CHOL (test code = 2237) 180 MG/DL RISK RATIO LDL/HDL (test cod e = 2238) 2.73 RATIO ISMAEL Titus [id number] 00:00:00* Test Item Value Reference Range Interpretation Comme nts TSH, THIRD GENERATION (test code = 2821) 6.350 UIU/ML Cristian StollLIPID [id number] 00:00:00* Test Item Value Reference Range Interpretation Comme nts CHOLESTEROL (test code = 2210) 268 MG/DL TRIGLYCERIDES (test code = 2232) 100 MG/DL HDL CHOLESTEROL (test code = 2220) 66 MG/DL CALC LDL CHOL (test code = 2237) 180 MG/DL RISK RATIO LDL/HDL (test cod e = 2238) 2.73 RATIO ISMAEL Titus [id number] 00:00:00* Test Item Value Reference Range Interpretation Comme nts TSH, THIRD GENERATION (test code = 2821) 6.350 UIU/ML Cristian StollLIPID [id number] 00:00:00* Test Item Value Reference Range Interpretation Comme nts CHOLESTEROL (test code = 2210) 268 MG/DL TRIGLYCERIDES (test code = 2232) 100 MG/DL HDL CHOLESTEROL (test code = 2220) 66 MG/DL CALC LDL CHOL (test code = 2237) 180 MG/DL RISK RATIO LDL/HDL (test cod e = 2238) 2.73 RATIO ISMAEL Titus [id number] 00:00:00* Test Item Value Reference Range Interpretation Comme nts TSH, THIRD GENERATION (test code = 2821) 6.350 UIU/ML Cristian StollLIPID [id number] 00:00:00* Test Item Value Reference Range Interpretation Comme nts CHOLESTEROL (test code = 2210) 268 MG/DL TRIGLYCERIDES (test code = 2232) 100 MG/DL HDL CHOLESTEROL (test code = 2220) 66 MG/DL CALC LDL CHOL (test code = 2237) 180 MG/DL RISK RATIO LDL/HDL (test cod e = 2238) 2.73 RATIO ISMAEL Titus [id number] 00:00:00* Test Item Value Reference Range Interpretation Comme nts TSH, THIRD GENERATION (test code = 2821) 6.350 UIU/ML Cristian StollLIPID [id number] 00:00:00* Test Item Value Reference Range Interpretation Comme nts CHOLESTEROL (test code = 2210) 268 MG/DL TRIGLYCERIDES (test code = 2232) 100 MG/DL HDL CHOLESTEROL (test code = 2220) 66 MG/DL CALC LDL CHOL (test code = 2237) 180 MG/DL RISK RATIO LDL/HDL (test cod e = 2238) 2.73 RATIO ISMAEL Titus [id number] 00:00:00* Test Item Value Reference Range Interpretation Comme nts TSH, THIRD GENERATION (test code = 2821) 6.350 UIU/ML Cristian StollLIPID [id number] 00:00:00* Test Item Value Reference Range Interpretation Comme nts CHOLESTEROL (test code = 2210) 268 MG/DL TRIGLYCERIDES (test code = 2232) 100 MG/DL HDL CHOLESTEROL (test code = 2220) 66 MG/DL CALC LDL CHOL (test code = 2237) 180 MG/DL RISK RATIO LDL/HDL (test cod e = 2238) 2.73 RATIO ISMAEL Titus [id number] 00:00:00* Test Item Value Reference Range Interpretation Comme nts TSH, THIRD GENERATION (test code = 2821) 6.350 UIU/ML Cristian Cesar THIRD [id number] 00:00:00* Test Item Value Reference Range Interpretation Comme nts TSH, THIRD GENERATION (test code = 2821) 6.350 UIU/ML Cristian StollHEMOGLOBIN [id number] 03:17:24* Test Item Value Reference Range Interpretation Comme nts HEMOGLOBIN A1c (test code = 96127) 6.4 % 4.2-5.6 H [employer] GUIDELINES FOR HGB A1C: PREDIABETES/INCREASED RISK . . . . . . . 5.7-6.4% DIAGNOSIS OF DIABETES . . . . . . . . . >=6.5% WITH CONFIRMATION OR APPROPRIATE SYMPTOMS NOTE: ASSAY MAY BE AFFECTED BY HEMOGLOBINOPATHIES (SICKLE CELL ANEMIA, S-C DISEASE, OTHERS) OR ARTIFICIALLY LOWERED BY DECREASED RED CELL SURVIVAL (HEMOLYTIC ANEMIAS, BLOOD LOSS, ETC.). CONSIDER ALTERNATE TESTING OR LABORATORY CONSULTATION. HEMOGLOBIN [id number] 00:00:00* Test Item Value Reference Range Interpretation Comme nts HEMOGLOBIN A1c (test code = 02658) 6.4 % Cristian So AustinHEMOGLOBIN [id number] 00:00:00* Test Item Value Reference Range Interpretation Comme nts HEMOGLOBIN A1c (test code = 51008) 6.4 % Cristian So AustinHEMOGLOBIN [id number] 00:00:00* Test Item Value Reference Range Interpretation Comme nts HEMOGLOBIN A1c (test code = 22574) 6.4 % Cristian So AustinHEMOGLOBIN [id number] 00:00:00* Test Item Value Reference Range Interpretation Comme nts HEMOGLOBIN A1c (test code = 60415) 6.4 % Cristian So AustinHEMOGLOBIN [id number] 00:00:00* Test Item Value Reference Range Interpretation Comme nts HEMOGLOBIN A1c (test code = 23144) 6.4 % Cristian So AustinHEMOGLOBIN [id number] 00:00:00* Test Item Value Reference Range Interpretation Comme nts HEMOGLOBIN A1c (test code = 89027) 6.4 % Cristian So AustinHEMOGLOBIN [id number] 00:00:00* Test Item Value Reference Range Interpretation Comme chiara HEMOGLOBIN A1c (test code = 43433) 6.4 % Cristian StollHEMOGLOBIN [id number] 00:00:00* Test Item Value Reference Range Interpretation Comme nts HEMOGLOBIN A1c (test code = 60753) 6.4 % Cristian StollHEMOGLOBIN [id number] 00:00:00* Test Item Value Reference Range Interpretation Comme nts HEMOGLOBIN A1c (test code = 87606) 6.4 % Cristian StollTSH, THIRD [id number] 05:15:49* Test Item Value Reference Range Interpretation Comme chiara TSH, THIRD GENERATION (test code = 2821) 2.080 UIU/ML 0.400-4.100 HEMOGLOBIN [id number] 03:46:00* Test Item Value Reference Range Interpretation Comme nts HEMOGLOBIN A1c (test code = 42458) 6.6 % 4.2-5.6 H [employer] GUIDELINES FOR HGB A1C: PREDIABETES/INCREASED RISK . . . . . . . 5.7-6.4% DIAGNOSIS OF DIABETES . . . . . . . . . >=6.5% WITH CONFIRMATION OR APPROPRIATE SYMPTOMS NOTE: ASSAY MAY BE AFFECTED BY HEMOGLOBINOPATHIES (SICKLE CELL ANEMIA, S-C DISEASE, OTHERS) OR ARTIFICIALLY LOWERED BY DECREASED RED CELL SURVIVAL (HEMOLYTIC ANEMIAS, BLOOD LOSS, ETC.). CONSIDER ALTERNATE TESTING OR LABORATORY CONSULTATION. UNLESS OTHERWISE INDICATED, [facility] [address] [place] [address] [employer]OUNDS MAINTENANCE SUPERVISOR: DIANA RUSS M.D. IA NUMBER [id number] [place]. [id number] LIPID [id number] 02:59:52* Test Item Value Reference Range Interpretation Comme nts CHOLESTEROL (test code = 2210) 292 MG/DL <200 H TRIGLYCERIDES (test code = 2232) 184 MG/DL <150 H HDL CHOLESTEROL (test code = 2220) 51 MG/DL >39 CALC LDL CHOL (test code = 2237) 205 MG/DL <100 H NOTE: CALCULATED LDL IS BASED ON MELBA-OLVERA METHOD WHICHINCLUDES ADJUSTABLE TRIGLYCERIDE:VLDL CHOLESTEROL RATIO.THIS FACTOR VARIES BY MEASURED TRIGLYCERIDE AND NON-HDLCHOLESTEROL CONCENTRATIONS WITH INCREASED CALCULATED LDL SEENIN HIGHER TRIGLYCERIDE OR LOWER NON-HDL SPECIMENS. FOR MOREINFORMATION, SEE CLIENT ANNOUNCEMENT AT [email or web address] RISK RATIO LDL/HDL (test code = 2238) 4.02 RATIO <3.22 H LIPID [id number] 00:00:00* Test Item Value Reference Range Interpretation Comme nts CHOLESTEROL (test code = 2210) 292 MG/DL TRIGLYCERIDES (test code = 2232) 184 MG/DL HDL CHOLESTEROL (test code = 2220) 51 MG/DL CALC LDL CHOL (test code = 2237) 205 MG/DL RISK RATIO LDL/HDL (test cod e = 2238) 4.02 RATIO HEMOGLOBIN [id number] 00:00:00* Test Item Value Reference Range Interpretation Comme nts HEMOGLOBIN A1c (test code = 91811) 6.6 % [id number] 00:00:00* Test Item Value Reference Range Interpretation Comme nts TSH, THIRD GENERATION (test code = 2821) 2.080 UIU/ML LIPID [id number] 00:00:00* Test Item Value Reference Range Interpretation Comme nts CHOLESTEROL (test code = 2210) 292 MG/DL TRIGLYCERIDES (test code = 2232) 184 MG/DL HDL CHOLESTEROL (test code = 2220) 51 MG/DL CALC LDL CHOL (test code = 2237) 205 MG/DL RISK RATIO LDL/HDL (test cod e = 2238) 4.02 RATIO [id number] 00:00:00* Test Item Value Reference Range Interpretation Comme nts TSH, THIRD GENERATION (test code = 2821) 2.080 UIU/ML Cristian F AustinHEMOGLOBIN [id number] 00:00:00* Test Item Value Reference Range Interpretation Comme nts HEMOGLOBIN A1c (test code = 52658) 6.6 % [id number] 00:00:00* Test Item Value Reference Range Interpretation Comme nts TSH, THIRD GENERATION (test code = 2821) 2.080 UIU/ML LIPID [id number] 00:00:00* Test Item Value Reference Range Interpretation Comme nts CHOLESTEROL (test code = 2210) 292 MG/DL TRIGLYCERIDES (test code = 2232) 184 MG/DL HDL CHOLESTEROL (test code = 2220) 51 MG/DL CALC LDL CHOL (test code = 2237) 205 MG/DL RISK RATIO LDL/HDL (test cod e = 2238) 4.02 RATIO HEMOGLOBIN [id number] 00:00:00* Test Item Value Reference Range Interpretation Comme nts HEMOGLOBIN A1c (test code = 43095) 6.6 % [id number] 00:00:00* Test Item Value Reference Range Interpretation Comme nts TSH, THIRD GENERATION (test code = 2821) 2.080 UIU/ML LIPID [id number] 00:00:00* Test Item Value Reference Range Interpretation Comme nts CHOLESTEROL (test code = 2210) 292 MG/DL TRIGLYCERIDES (test code = 2232) 184 MG/DL HDL CHOLESTEROL (test code = 2220) 51 MG/DL CALC LDL CHOL (test code = 2237) 205 MG/DL RISK RATIO LDL/HDL (test cod e = 2238) 4.02 RATIO Cristian F AustinLIPID [id number] 00:00:00* Test Item Value Reference Range Interpretation Comme nts CHOLESTEROL (test code = 2210) 292 MG/DL TRIGLYCERIDES (test code = 2232) 184 MG/DL HDL CHOLESTEROL (test code = 2220) 51 MG/DL CALC LDL CHOL (test code = 2237) 205 MG/DL RISK RATIO LDL/HDL (test cod e = 2238) 4.02 RATIO HEMOGLOBIN [id number] 00:00:00* Test Item Value Reference Range Interpretation Comme nts HEMOGLOBIN A1c (test code = 32013) 6.6 % HEMOGLOBIN [id number] 00:00:00* Test Item Value Reference Range Interpretation Comme nts HEMOGLOBIN A1c (test code = 92960) 6.6 % Cristian F [id number] 00:00:00* Test Item Value Reference Range Interpretation Comme nts TSH, THIRD GENERATION (test code = 2821) 2.080 UIU/ML Cristian F AustinLIPID [id number] 00:00:00* Test Item Value Reference Range Interpretation Comme nts CHOLESTEROL (test code = 2210) 292 MG/DL TRIGLYCERIDES (test code = 2232) 184 MG/DL HDL CHOLESTEROL (test code = 2220) 51 MG/DL CALC LDL CHOL (test code = 2237) 205 MG/DL RISK RATIO LDL/HDL (test cod e = 2238) 4.02 RATIO Cristian F AustinHEMOGLOBIN [id number] 00:00:00* Test Item Value Reference Range Interpretation Comme nts HEMOGLOBIN A1c (test code = 05808) 6.6 % Cristian So [id number] 00:00:00* Test Item Value Reference Range Interpretation Comme nts TSH, THIRD GENERATION (test code = 2821) 2.080 UIU/ML Cristian StollLIPID [id number] 00:00:00* Test Item Value Reference Range Interpretation Comme nts CHOLESTEROL (test code = 2210) 292 MG/DL TRIGLYCERIDES (test code = 2232) 184 MG/DL HDL CHOLESTEROL (test code = 2220) 51 MG/DL CALC LDL CHOL (test code = 2237) 205 MG/DL RISK RATIO LDL/HDL (test cod e = 2238) 4.02 RATIO Cristian StollHEMOGLOBIN [id number] 00:00:00* Test Item Value Reference Range Interpretation Comme nts HEMOGLOBIN A1c (test code = 98447) 6.6 % Cristian So AustinLIPID [id number] 00:00:00* Test Item Value Reference Range Interpretation Comme nts CHOLESTEROL (test code = 2210) 292 MG/DL TRIGLYCERIDES (test code = 2232) 184 MG/DL HDL CHOLESTEROL (test code = 2220) 51 MG/DL CALC LDL CHOL (test code = 2237) 205 MG/DL RISK RATIO LDL/HDL (test cod e = 2238) 4.02 RATIO Cristian StollHEMOGLOBIN [id number] 00:00:00* Test Item Value Reference Range Interpretation Comme nts HEMOGLOBIN A1c (test code = 21971) 6.6 % Cristian So [id number] 00:00:00* Test Item Value Reference Range Interpretation Comme nts TSH, THIRD GENERATION (test code = 2821) 2.080 UIU/ML Cristian So AustinLIPID [id number] 00:00:00* Test Item Value Reference Range Interpretation Comme nts CHOLESTEROL (test code = 2210) 292 MG/DL TRIGLYCERIDES (test code = 2232) 184 MG/DL HDL CHOLESTEROL (test code = 2220) 51 MG/DL CALC LDL CHOL (test code = 2237) 205 MG/DL RISK RATIO LDL/HDL (test cod e = 2238) 4.02 RATIO Cristian So AustinHEMOGLOBIN [id number] 00:00:00* Test Item Value Reference Range Interpretation Comme nts HEMOGLOBIN A1c (test code = 80041) 6.6 % Cristian So [id number] 00:00:00* Test Item Value Reference Range Interpretation Comme nts TSH, THIRD GENERATION (test code = 2821) 2.080 UIU/ML Cristian So AustinLIPID [id number] 00:00:00* Test Item Value Reference Range Interpretation Comme nts CHOLESTEROL (test code = 2210) 292 MG/DL TRIGLYCERIDES (test code = 2232) 184 MG/DL HDL CHOLESTEROL (test code = 2220) 51 MG/DL CALC LDL CHOL (test code = 2237) 205 MG/DL RISK RATIO LDL/HDL (test cod e = 2238) 4.02 RATIO Cristian So AustinHEMOGLOBIN [id number] 00:00:00* Test Item Value Reference Range Interpretation Comme nts HEMOGLOBIN A1c (test code = 70588) 6.6 % Cristian So [id number] 00:00:00* Test Item Value Reference Range Interpretation Comme nts TSH, THIRD GENERATION (test code = 2821) 2.080 UIU/ML Cristian So AustinLIPID [id number] 00:00:00* Test Item Value Reference Range Interpretation Comme nts CHOLESTEROL (test code = 2210) 292 MG/DL TRIGLYCERIDES (test code = 2232) 184 MG/DL HDL CHOLESTEROL (test code = 2220) 51 MG/DL CALC LDL CHOL (test code = 2237) 205 MG/DL RISK RATIO LDL/HDL (test cod e = 2238) 4.02 RATIO Cristian So AustinHEMOGLOBIN [id number] 00:00:00* Test Item Value Reference Range Interpretation Comme nts HEMOGLOBIN A1c (test code = 77867) 6.6 % Cristian So [id number] 00:00:00* Test Item Value Reference Range Interpretation Comme nts TSH, THIRD GENERATION (test code = 2821) 2.080 UIU/ML Cristian So AustinLIPID [id number] 00:00:00* Test Item Value Reference Range Interpretation Comme nts CHOLESTEROL (test code = 2210) 292 MG/DL TRIGLYCERIDES (test code = 2232) 184 MG/DL HDL CHOLESTEROL (test code = 2220) 51 MG/DL CALC LDL CHOL (test code = 2237) 205 MG/DL RISK RATIO LDL/HDL (test cod e = 2238) 4.02 RATIO Cristian StollHEMOGLOBIN [id number] 00:00:00* Test Item Value Reference Range Interpretation Comme nts HEMOGLOBIN A1c (test code = 33707) 6.6 % Cristian So [id number] 00:00:00* Test Item Value Reference Range Interpretation Comme nts TSH, THIRD GENERATION (test code = 2821) 2.080 UIU/ML Cristian So [id number] 00:00:00* Test Item Value Reference Range Interpretation Comme nts TSH, THIRD GENERATION (test code = 2821) 2.080 UIU/ML Cristian So AustinLIPID [id number] 00:00:00* Test Item Value Reference Range Interpretation Comme nts CHOLESTEROL (test code = 2210) 292 MG/DL TRIGLYCERIDES (test code = 2232) 184 MG/DL HDL CHOLESTEROL (test code = 2220) 51 MG/DL CALC LDL CHOL (test code = 2237) 205 MG/DL RISK RATIO LDL/HDL (test cod e = 2238) 4.02 RATIO Cristian StollHEMOGLOBIN [id number] 00:00:00* Test Item Value Reference Range Interpretation Comme nts HEMOGLOBIN A1c (test code = 39739) 6.6 % Cristian So [id number] 00:00:00* Test Item Value Reference Range Interpretation Comme nts TSH, THIRD GENERATION (test code = 2821) 2.080 UIU/ML LIPID [id number] 00:00:00* Test Item Value Reference Range Interpretation Comme nts CHOLESTEROL (test code = 2210) 303 MG/DL TRIGLYCERIDES (test code = 2232) 191 MG/DL HDL CHOLESTEROL (test code = 2220) 61 MG/DL CALC LDL CHOL (test code = 2237) 205 MG/DL RISK RATIO LDL/HDL (test cod e = 2238) 3.36 RATIO [id number] 00:00:00* Test Item Value Reference Range Interpretation Comme nts TSH, THIRD GENERATION (test code = 2821) 0.769 UIU/ML COMPREHENSIVE METABOLIC [id number] 00:00:00* Test Item Value Reference Range Interpretation Comme nts GLUCOSE (test code = 2217) 131 MG/DL BUN (test code = 2208) 13 MG/DL CREATININE (test code = 2214) 0.65 MG/DL eGFR AMER. (test cod e = 39697) 113 ML/MIN/1.73 eGFR NON- AMER. (test code = 75521) 97 ML/MIN/1.73 CALC BUN/CREAT (test code = 2235) 20 RATIO SODIUM (test code = 2231) 131 MEQ/L POTASSIUM (test code = 2228) 4.5 MEQ/L CHLORIDE (test code = 2215) 92 MEQ/L CARBON DIOXIDE (test code = 2206) 24 MEQ/L CALCIUM (test code = 2209) 9.5 MG/DL PROTEIN, TOTAL (test code = 2229) 7.5 G/DL ALBUMIN (test code = 2201) 4.9 G/DL CALC GLOBULIN (test code = 2240) 2.6 G/DL CALC A/G RATIO (test code = 2234) 1.9 RATIO BILIRUBIN, TOTAL (test code = 2207) <0.2 MG/DL ALKALINE PHOSPHATASE (test code = 2204) 139 U/L AST (test code = 2218) 17 U/L ALT (test code = 2219) 23 U/L HEMOGLOBIN [id number] 00:00:00* Test Item Value Reference Range Interpretation Comme nts HEMOGLOBIN A1c (test code = 01411) 6.8 % LIPID [id number] 00:00:00* Test Item Value Reference Range Interpretation Comme nts CHOLESTEROL (test code = 2210) 303 MG/DL TRIGLYCERIDES (test code = 2232) 191 MG/DL HDL CHOLESTEROL (test code = 2220) 61 MG/DL CALC LDL CHOL (test code = 2237) 205 MG/DL RISK RATIO LDL/HDL (test cod e = 2238) 3.36 RATIO [id number] 00:00:00* Test Item Value Reference Range Interpretation Comme [facility] TSH, THIRD GENERATION (test code = 2821) 0.769 UIU/ML HEMOGLOBIN [id number] 00:00:00* Test Item Value Reference Range Interpretation Comme [facility] HEMOGLOBIN A1c (test code = 14025) 6.8 % Cristian F AustinCOMPREHENSIVE METABOLIC [id number] 00:00:00* Test Item Value Reference Range Interpretation Comme nts GLUCOSE (test code = 2217) 131 MG/DL BUN (test code = 2208) 13 MG/DL CREATININE (test code = 2214) 0.65 MG/DL eGFR AMER. (test cod e = 29175) 113 ML/MIN/1.73 eGFR NON- AMER. (test code = 23836) 97 ML/MIN/1.73 CALC BUN/CREAT (test code = 2235) 20 RATIO SODIUM (test code = 2231) 131 MEQ/L POTASSIUM (test code = 2228) 4.5 MEQ/L CHLORIDE (test code = 2215) 92 MEQ/L CARBON DIOXIDE (test code = 2206) 24 MEQ/L CALCIUM (test code = 2209) 9.5 MG/DL PROTEIN, TOTAL (test code = 2229) 7.5 G/DL ALBUMIN (test code = 2201) 4.9 G/DL CALC GLOBULIN (test code = 2240) 2.6 G/DL CALC A/G RATIO (test code = 2234) 1.9 RATIO BILIRUBIN, TOTAL (test code = 2207) <0.2 MG/DL ALKALINE PHOSPHATASE (test code = 2204) 139 U/L AST (test code = 2218) 17 U/L ALT (test code = 2219) 23 U/L HEMOGLOBIN [id number] 00:00:00* Test Item Value Reference Range Interpretation Comme nts HEMOGLOBIN A1c (test code = 42625) 6.8 % LIPID [id number] 00:00:00* Test Item Value Reference Range Interpretation Comme nts CHOLESTEROL (test code = 2210) 303 MG/DL TRIGLYCERIDES (test code = 2232) 191 MG/DL HDL CHOLESTEROL (test code = 2220) 61 MG/DL CALC LDL CHOL (test code = 2237) 205 MG/DL RISK RATIO LDL/HDL (test cod e = 2238) 3.36 RATIO [id number] 00:00:00* Test Item Value Reference Range Interpretation Comme nts TSH, THIRD GENERATION (test code = 2821) 0.769 UIU/ML COMPREHENSIVE METABOLIC [id number] 00:00:00* Test Item Value Reference Range Interpretation Comme nts GLUCOSE (test code = 2217) 131 MG/DL BUN (test code = 2208) 13 MG/DL CREATININE (test code = 2214) 0.65 MG/DL eGFR AMER. (test cod e = 81274) 113 ML/MIN/1.73 eGFR NON- AMER. (test code = 54317) 97 ML/MIN/1.73 CALC BUN/CREAT (test code = 2235) 20 RATIO SODIUM (test code = 2231) 131 MEQ/L POTASSIUM (test code = 2228) 4.5 MEQ/L CHLORIDE (test code = 2215) 92 MEQ/L CARBON DIOXIDE (test code = 2206) 24 MEQ/L CALCIUM (test code = 2209) 9.5 MG/DL PROTEIN, TOTAL (test code = 2229) 7.5 G/DL ALBUMIN (test code = 2201) 4.9 G/DL CALC GLOBULIN (test code = 2240) 2.6 G/DL CALC A/G RATIO (test code = 2234) 1.9 RATIO BILIRUBIN, TOTAL (test code = 2207) <0.2 MG/DL ALKALINE PHOSPHATASE (test code = 2204) 139 U/L AST (test code = 2218) 17 U/L ALT (test code = 2219) 23 U/L LIPID [id number] 00:00:00* Test Item Value Reference Range Interpretation Comme nts CHOLESTEROL (test code = 2210) 303 MG/DL TRIGLYCERIDES (test code = 2232) 191 MG/DL HDL CHOLESTEROL (test code = 2220) 61 MG/DL CALC LDL CHOL (test code = 2237) 205 MG/DL RISK RATIO LDL/HDL (test cod e = 2238) 3.36 RATIO Cristian StollHEMOGLOBIN [id number] 00:00:00* Test Item Value Reference Range Interpretation Comme nts HEMOGLOBIN A1c (test code = 90172) 6.8 % [id number] 00:00:00* Test Item Value Reference Range Interpretation Comme nts TSH, THIRD GENERATION (test code = 2821) 0.769 UIU/ML Cristian So AustinLIPID [id number] 00:00:00* Test Item Value Reference Range Interpretation Comme nts CHOLESTEROL (test code = 2210) 303 MG/DL TRIGLYCERIDES (test code = 2232) 191 MG/DL HDL CHOLESTEROL (test code = 2220) 61 MG/DL CALC LDL CHOL (test code = 2237) 205 MG/DL RISK RATIO LDL/HDL (test cod e = 2238) 3.36 RATIO [id number] 00:00:00* Test Item Value Reference Range Interpretation Comme nts TSH, THIRD GENERATION (test code = 2821) 0.769 UIU/ML COMPREHENSIVE METABOLIC [id number] 00:00:00* Test Item Value Reference Range Interpretation Comme nts GLUCOSE (test code = 2217) 131 MG/DL BUN (test code = 2208) 13 MG/DL CREATININE (test code = 2214) 0.65 MG/DL eGFR AMER. (test cod e = 08514) 113 ML/MIN/1.73 eGFR NON- AMER. (test code = 18118) 97 ML/MIN/1.73 CALC BUN/CREAT (test code = 2235) 20 RATIO SODIUM (test code = 2231) 131 MEQ/L POTASSIUM (test code = 2228) 4.5 MEQ/L CHLORIDE (test code = 2215) 92 MEQ/L CARBON DIOXIDE (test code = 2206) 24 MEQ/L CALCIUM (test code = 2209) 9.5 MG/DL PROTEIN, TOTAL (test code = 2229) 7.5 G/DL ALBUMIN (test code = 2201) 4.9 G/DL CALC GLOBULIN (test code = 2240) 2.6 G/DL CALC A/G RATIO (test code = 2234) 1.9 RATIO BILIRUBIN, TOTAL (test code = 2207) <0.2 MG/DL ALKALINE PHOSPHATASE (test code = 2204) 139 U/L AST (test code = 2218) 17 U/L ALT (test code = 2219) 23 U/L COMPREHENSIVE METABOLIC [id number] 00:00:00* Test Item Value Reference Range Interpretation Comme nts GLUCOSE (test code = 2217) 131 MG/DL BUN (test code = 2208) 13 MG/DL CREATININE (test code = 2214) 0.65 MG/DL eGFR AMER. (test cod e = 91774) 113 ML/MIN/1.73 eGFR NON- AMER. (test code = 37463) 97 ML/MIN/1.73 CALC BUN/CREAT (test code = 2235) 20 RATIO SODIUM (test code = 2231) 131 MEQ/L POTASSIUM (test code = 2228) 4.5 MEQ/L CHLORIDE (test code = 2215) 92 MEQ/L CARBON DIOXIDE (test code = 2206) 24 MEQ/L CALCIUM (test code = 2209) 9.5 MG/DL PROTEIN, TOTAL (test code = 2229) 7.5 G/DL ALBUMIN (test code = 2201) 4.9 G/DL CALC GLOBULIN (test code = 2240) 2.6 G/DL CALC A/G RATIO (test code = 2234) 1.9 RATIO BILIRUBIN, TOTAL (test code = 2207) <0.2 MG/DL ALKALINE PHOSPHATASE (test code = 220) 139 U/L AST (test code = 221) 17 U/L ALT (test code = 2219) 23 U/L Cristian StollHEMOGLOBIN [id number] 00:00:00* Test Item Value Reference Range Interpretation Comme [facility] HEMOGLOBIN A1c (test code = 52930) 6.8 % Cristian So Portland[place]IP[place] [id number] 00:00:00* Test Item Value Reference Range Interpretation Comme nts CHOLESTEROL (test code = 2210) 303 MG/DL TRIGLYCERIDES (test code = 2232) 191 MG/DL HDL CHOLESTEROL (test code = 2220) 61 MG/DL CALC LDL CHOL (test code = 2237) 205 MG/DL RISK RATIO LDL/HDL (test cod e = 2238) 3.36 RATIO Cristian So [id number] 00:00:00* Test Item Value Reference Range Interpretation Comme nts TSH, THIRD GENERATION (test code = 2821) 0.769 UIU/ML Cristian StollCOMPREHENSIVE METABOLIC [id number] 00:00:00* Test Item Value Reference Range Interpretation Comme nts GLUCOSE (test code = 2217) 131 MG/DL BUN (test code = 2208) 13 MG/DL CREATININE (test code = 2214) 0.65 MG/DL eGFR AMER. (test cod e = 40615) 113 ML/MIN/1.73 eGFR NON- AMER. (test code = 40565) 97 ML/MIN/1.73 CALC BUN/CREAT (test code = 2235) 20 RATIO SODIUM (test code = 2231) 131 MEQ/L POTASSIUM (test code = 2228) 4.5 MEQ/L CHLORIDE (test code = 2215) 92 MEQ/L CARBON DIOXIDE (test code = 2206) 24 MEQ/L CALCIUM (test code = 2209) 9.5 MG/DL PROTEIN, TOTAL (test code = 2229) 7.5 G/DL ALBUMIN (test code = 2201) 4.9 G/DL CALC GLOBULIN (test code = 2240) 2.6 G/DL CALC A/G RATIO (test code = 2234) 1.9 RATIO BILIRUBIN, TOTAL (test code = 220) <0.2 MG/DL ALKALINE PHOSPHATASE (test code = 2204) 139 U/L AST (test code = 221) 17 U/L ALT (test code = 2219) 23 U/L Cristian StollHEMOGLOBIN [id number] 00:00:00* Test Item Value Reference Range Interpretation Comme nts HEMOGLOBIN A1c (test code = 33378) 6.8 % Cristian StollLIPID [id number] 00:00:00* Test Item Value Reference Range Interpretation Comme nts CHOLESTEROL (test code = 2210) 303 MG/DL TRIGLYCERIDES (test code = 2232) 191 MG/DL HDL CHOLESTEROL (test code = 2220) 61 MG/DL CALC LDL CHOL (test code = 2237) 205 MG/DL RISK RATIO LDL/HDL (test cod e = 2238) 3.36 RATIO Cristian StollLIPID [id number] 00:00:00* Test Item Value Reference Range Interpretation Comme nts CHOLESTEROL (test code = 2210) 303 MG/DL TRIGLYCERIDES (test code = 2232) 191 MG/DL HDL CHOLESTEROL (test code = 2220) 61 MG/DL CALC LDL CHOL (test code = 2237) 205 MG/DL RISK RATIO LDL/HDL (test cod e = 2238) 3.36 RATIO Cristian [id number] 00:00:00* Test Item Value Reference Range Interpretation Comme nts TSH, THIRD GENERATION (test code = 2821) 0.769 UIU/ML Cristian StollCOMPREHENSIVE METABOLIC [id number] 00:00:00* Test Item Value Reference Range Interpretation Comme nts GLUCOSE (test code = 2217) 131 MG/DL BUN (test code = 2208) 13 MG/DL CREATININE (test code = 2214) 0.65 MG/DL eGFR AMER. (test cod e = 25071) 113 ML/MIN/1.73 eGFR NON- AMER. (test code = 55455) 97 ML/MIN/1.73 CALC BUN/CREAT (test code = 2235) 20 RATIO SODIUM (test code = 2231) 131 MEQ/L POTASSIUM (test code = 2228) 4.5 MEQ/L CHLORIDE (test code = 2215) 92 MEQ/L CARBON DIOXIDE (test code = 2206) 24 MEQ/L CALCIUM (test code = 2209) 9.5 MG/DL PROTEIN, TOTAL (test code = 2229) 7.5 G/DL ALBUMIN (test code = 2201) 4.9 G/DL CALC GLOBULIN (test code = 2240) 2.6 G/DL CALC A/G RATIO (test code = 2234) 1.9 RATIO BILIRUBIN, TOTAL (test code = 2207) <0.2 MG/DL ALKALINE PHOSPHATASE (test code = 2204) 139 U/L AST (test code = 2218) 17 U/L ALT (test code = 2219) 23 U/L Cristian So [id number] 00:00:00* Test Item Value Reference Range Interpretation Comme nts TSH, THIRD GENERATION (test code = 2821) 0.769 UIU/ML Cristian StollCOMPREHENSIVE METABOLIC [id number] 00:00:00* Test Item Value Reference Range Interpretation Comme nts GLUCOSE (test code = 2217) 131 MG/DL BUN (test code = 2208) 13 MG/DL CREATININE (test code = 2214) 0.65 MG/DL eGFR AMER. (test cod e = 89530) 113 ML/MIN/1.73 eGFR NON- AMER. (test code = 78377) 97 ML/MIN/1.73 CALC BUN/CREAT (test code = 2235) 20 RATIO SODIUM (test code = 2231) 131 MEQ/L POTASSIUM (test code = 2228) 4.5 MEQ/L CHLORIDE (test code = 2215) 92 MEQ/L CARBON DIOXIDE (test code = 2206) 24 MEQ/L CALCIUM (test code = 2209) 9.5 MG/DL PROTEIN, TOTAL (test code = 2229) 7.5 G/DL ALBUMIN (test code = 2201) 4.9 G/DL CALC GLOBULIN (test code = 2240) 2.6 G/DL CALC A/G RATIO (test code = 2234) 1.9 RATIO BILIRUBIN, TOTAL (test code = 2207) <0.2 MG/DL ALKALINE PHOSPHATASE (test code = 2204) 139 U/L AST (test code = 2218) 17 U/L ALT (test code = 2219) 23 U/L Cristian StollHEMOGLOBIN [id number] 00:00:00* Test Item Value Reference Range Interpretation Comme [facility] HEMOGLOBIN A1c (test code = 74143) 6.8 % Cristian SotllLIPID [id number] 00:00:00* Test Item Value Reference Range Interpretation Comme nts CHOLESTEROL (test code = 2210) 303 MG/DL TRIGLYCERIDES (test code = 2232) 191 MG/DL HDL CHOLESTEROL (test code = 2220) 61 MG/DL CALC LDL CHOL (test code = 223) 205 MG/DL RISK RATIO LDL/HDL (test cod e = 223) 3.36 RATIO Cristian [id number] 00:00:00* Test Item Value Reference Range Interpretation Comme nts TSH, THIRD GENERATION (test code = 2821) 0.769 UIU/ML Cristian StollCOMPREHENSIVE METABOLIC [id number] 00:00:00* Test Item Value Reference Range Interpretation Comme nts GLUCOSE (test code = 2217) 131 MG/DL BUN (test code = 2208) 13 MG/DL CREATININE (test code = 2214) 0.65 MG/DL eGFR AMER. (test cod e = 62404) 113 ML/MIN/1.73 eGFR NON- AMER. (test code = 98150) 97 ML/MIN/1.73 CALC BUN/CREAT (test code = 2235) 20 RATIO SODIUM (test code = 2231) 131 MEQ/L POTASSIUM (test code = 2228) 4.5 MEQ/L CHLORIDE (test code = 2215) 92 MEQ/L CARBON DIOXIDE (test code = 2206) 24 MEQ/L CALCIUM (test code = 2209) 9.5 MG/DL PROTEIN, TOTAL (test code = 2229) 7.5 G/DL ALBUMIN (test code = 2201) 4.9 G/DL CALC GLOBULIN (test code = 2240) 2.6 G/DL CALC A/G RATIO (test code = 2234) 1.9 RATIO BILIRUBIN, TOTAL (test code = 2207) <0.2 MG/DL ALKALINE PHOSPHATASE (test code = 2204) 139 U/L AST (test code = 2218) 17 U/L ALT (test code = 2219) 23 U/L Cristian StollHEMOGLOBIN [id number] 00:00:00* Test Item Value Reference Range Interpretation Comme [facility] HEMOGLOBIN A1c (test code = 40192) 6.8 % Cristian StollLIPID [id number] 00:00:00* Test Item Value Reference Range Interpretation Comme nts CHOLESTEROL (test code = 2210) 303 MG/DL TRIGLYCERIDES (test code = 2232) 191 MG/DL HDL CHOLESTEROL (test code = 2220) 61 MG/DL CALC LDL CHOL (test code = 2237) 205 MG/DL RISK RATIO LDL/HDL (test cod e = 223) 3.36 RATIO Cristian [id number] 00:00:00* Test Item Value Reference Range Interpretation Comme nts TSH, THIRD GENERATION (test code = 2821) 0.769 UIU/ML Cristian StollCOMPREHENSIVE METABOLIC [id number] 00:00:00* Test Item Value Reference Range Interpretation Comme nts GLUCOSE (test code = 2217) 131 MG/DL BUN (test code = 2208) 13 MG/DL CREATININE (test code = 2214) 0.65 MG/DL eGFR AMER. (test cod e = 71352) 113 ML/MIN/1.73 eGFR NON- AMER. (test code = 86246) 97 ML/MIN/1.73 CALC BUN/CREAT (test code = 2235) 20 RATIO SODIUM (test code = 2231) 131 MEQ/L POTASSIUM (test code = 2228) 4.5 MEQ/L CHLORIDE (test code = 2215) 92 MEQ/L CARBON DIOXIDE (test code = 2206) 24 MEQ/L CALCIUM (test code = 2209) 9.5 MG/DL PROTEIN, TOTAL (test code = 2229) 7.5 G/DL ALBUMIN (test code = 2201) 4.9 G/DL CALC GLOBULIN (test code = 2240) 2.6 G/DL CALC A/G RATIO (test code = 2234) 1.9 RATIO BILIRUBIN, TOTAL (test code = 2207) <0.2 MG/DL ALKALINE PHOSPHATASE (test code = 2204) 139 U/L AST (test code = 2218) 17 U/L ALT (test code = 2219) 23 U/L Cristian StollHEMOGLOBIN [id number] 00:00:00* Test Item Value Reference Range Interpretation Comme [facility] HEMOGLOBIN A1c (test code = 98853) 6.8 % Cristian StollLIPID [id number] 00:00:00* Test Item Value Reference Range Interpretation Comme nts CHOLESTEROL (test code = 2210) 303 MG/DL TRIGLYCERIDES (test code = 2232) 191 MG/DL HDL CHOLESTEROL (test code = 2220) 61 MG/DL CALC LDL CHOL (test code = 2237) 205 MG/DL RISK RATIO LDL/HDL (test cod e = 2237) 3.36 RATIO Cristian [id number] 00:00:00* Test Item Value Reference Range Interpretation Comme nts TSH, THIRD GENERATION (test code = 2821) 0.769 UIU/ML Cristian StollCOMPREHENSIVE METABOLIC [id number] 00:00:00* Test Item Value Reference Range Interpretation Comme nts GLUCOSE (test code = 2217) 131 MG/DL BUN (test code = 2208) 13 MG/DL CREATININE (test code = 2214) 0.65 MG/DL eGFR AMER. (test cod e = 90789) 113 ML/MIN/1.73 eGFR NON- AMER. (test code = 97571) 97 ML/MIN/1.73 CALC BUN/CREAT (test code = 2235) 20 RATIO SODIUM (test code = 2231) 131 MEQ/L POTASSIUM (test code = 2228) 4.5 MEQ/L CHLORIDE (test code = 2215) 92 MEQ/L CARBON DIOXIDE (test code = 2206) 24 MEQ/L CALCIUM (test code = 2209) 9.5 MG/DL PROTEIN, TOTAL (test code = 222) 7.5 G/DL ALBUMIN (test code = 2201) 4.9 G/DL CALC GLOBULIN (test code = 2240) 2.6 G/DL CALC A/G RATIO (test code = 2234) 1.9 RATIO BILIRUBIN, TOTAL (test code = 2207) <0.2 MG/DL ALKALINE PHOSPHATASE (test code = 2204) 139 U/L AST (test code = 2218) 17 U/L ALT (test code = 2219) 23 U/L Cristian StollHEMOGLOBIN [id number] 00:00:00* Test Item Value Reference Range Interpretation Comme [facility] HEMOGLOBIN A1c (test code = 98222) 6.8 % Cristian StollLIPID [id number] 00:00:00* Test Item Value Reference Range Interpretation Comme nts CHOLESTEROL (test code = 2210) 303 MG/DL TRIGLYCERIDES (test code = 2232) 191 MG/DL HDL CHOLESTEROL (test code = 2220) 61 MG/DL CALC LDL CHOL (test code = 2237) 205 MG/DL RISK RATIO LDL/HDL (test cod e = 223) 3.36 RATIO Cristian [id number] 00:00:00* Test Item Value Reference Range Interpretation Comme [facility] TSH, THIRD GENERATION (test code = 2821) 0.769 UIU/ML Cristian StollCOMPREHENSIVE METABOLIC [id number] 00:00:00* Test Item Value Reference Range Interpretation Comme nts GLUCOSE (test code = 2217) 131 MG/DL BUN (test code = 2208) 13 MG/DL CREATININE (test code = 2214) 0.65 MG/DL eGFR AMER. (test cod e = 36500) 113 ML/MIN/1.73 eGFR NON- AMER. (test code = 00971) 97 ML/MIN/1.73 CALC BUN/CREAT (test code = 2235) 20 RATIO SODIUM (test code = 2231) 131 MEQ/L POTASSIUM (test code = 2228) 4.5 MEQ/L CHLORIDE (test code = 2215) 92 MEQ/L CARBON DIOXIDE (test code = 2206) 24 MEQ/L CALCIUM (test code = 2209) 9.5 MG/DL PROTEIN, TOTAL (test code = 2229) 7.5 G/DL ALBUMIN (test code = 2201) 4.9 G/DL CALC GLOBULIN (test code = 2240) 2.6 G/DL CALC A/G RATIO (test code = 2234) 1.9 RATIO BILIRUBIN, TOTAL (test code = 2207) <0.2 MG/DL ALKALINE PHOSPHATASE (test code = 2204) 139 U/L AST (test code = 2218) 17 U/L ALT (test code = 2219) 23 U/L Cristian StollHEMOGLOBIN [id number] 00:00:00* Test Item Value Reference Range Interpretation Comme nts HEMOGLOBIN A1c (test code = 92494) 6.8 % Cristian So AustinLIPID [id number] 00:00:00* Test Item Value Reference Range Interpretation Comme nts CHOLESTEROL (test code = 2210) 303 MG/DL TRIGLYCERIDES (test code = 2232) 191 MG/DL HDL CHOLESTEROL (test code = 2220) 61 MG/DL CALC LDL CHOL (test code = 7) 205 MG/DL RISK RATIO LDL/HDL (test cod e = 2237) 3.36 RATIO Cristian StollHEMOGLOBIN [id number] 00:00:00* Test Item Value Reference Range Interpretation Comme nts HEMOGLOBIN A1c (test code = 43206) 6.8 % Cristian So [id number] 00:00:00* Test Item Value Reference Range Interpretation Comme nts TSH, THIRD GENERATION (test code = 2821) 0.769 UIU/ML Cristian StollCOMPREHENSIVE METABOLIC [id number] 00:00:00* Test Item Value Reference Range Interpretation Comme nts GLUCOSE (test code = 2217) 131 MG/DL BUN (test code = 2208) 13 MG/DL CREATININE (test code = 2214) 0.65 MG/DL eGFR AMER. (test cod e = 13873) 113 ML/MIN/1.73 eGFR NON- AMER. (test code = 41346) 97 ML/MIN/1.73 CALC BUN/CREAT (test code = 2235) 20 RATIO SODIUM (test code = 2231) 131 MEQ/L POTASSIUM (test code = 2228) 4.5 MEQ/L CHLORIDE (test code = 2215) 92 MEQ/L CARBON DIOXIDE (test code = 2206) 24 MEQ/L CALCIUM (test code = 2209) 9.5 MG/DL PROTEIN, TOTAL (test code = 2229) 7.5 G/DL ALBUMIN (test code = 2201) 4.9 G/DL CALC GLOBULIN (test code = 2240) 2.6 G/DL CALC A/G RATIO (test code = 2234) 1.9 RATIO BILIRUBIN, TOTAL (test code = 2207) <0.2 MG/DL ALKALINE PHOSPHATASE (test code = 2204) 139 U/L AST (test code = 2218) 17 U/L ALT (test code = 2219) 23 U/L Cristian So AustinHEMOGLOBIN [id number] 00:00:00* Test Item Value Reference Range Interpretation Comme nts HEMOGLOBIN A1c (test code = 51913) 6.8 % LIPID [id number] 00:00:00* Test Item Value Reference Range Interpretation Comme nts CHOLESTEROL (test code = 2210) 261 MG/DL TRIGLYCERIDES (test code = 2232) 159 MG/DL HDL CHOLESTEROL (test code = 2220) 82 MG/DL CALC LDL CHOL (test code = 2237) 150 MG/DL RISK RATIO LDL/HDL (test cod e = 223) 1.83 RATIO COMPREHENSIVE METABOLIC [id number] 00:00:00* Test Item Value Reference Range Interpretation Comme nts GLUCOSE (test code = 2217) 144 MG/DL BUN (test code = 2208) 15 MG/DL CREATININE (test code = 2214) 0.85 MG/DL eGFR AMER. (test cod e = 39482) 87 ML/MIN/1.73 eGFR NON- AMER. (test code = 70822) 75 ML/MIN/1.73 CALC BUN/CREAT (test code = 2235) 18 RATIO SODIUM (test code = 2231) 133 MEQ/L POTASSIUM (test code = 2228) 4.5 MEQ/L CHLORIDE (test code = 2215) 93 MEQ/L CARBON DIOXIDE (test code = 2206) 28 MEQ/L CALCIUM (test code = 2209) 9.7 MG/DL PROTEIN, TOTAL (test code = 2229) 7.5 G/DL ALBUMIN (test code = 2201) 5.0 G/DL CALC GLOBULIN (test code = 2240) 2.5 G/DL CALC A/G RATIO (test code = 2234) 2.0 RATIO BILIRUBIN, TOTAL (test code = 2207) <0.2 MG/DL ALKALINE PHOSPHATASE (test code = 2204) 117 U/L AST (test code = 2218) 27 U/L ALT (test code = 2219) 50 U/L THYROID II PROFILE (T3U, T4, T7, TSH)2020-05-23 00:00:00* Test Item Value Reference Range Interpretation Comme nts T-UPTAKE (test code = 2817) 30.2 % THYROX. BIND. CAPAC. (test c ode = 21416) 1.1 T4 (THYROXINE) (test code = 2819) 4.3 UG/DL CORRECTED T4 (FTI) (test cod e = 2820) 3.9 UG/DL TSH, THIRD GENERATION (test code = 2821) 18.900 UIU/ML HEMOGLOBIN [id number] 00:00:00* Test Item Value Reference Range Interpretation Comme nts HEMOGLOBIN A1c (test code = 30386) 6.6 % LIPID [id number] 00:00:00* Test Item Value Reference Range Interpretation Comme nts CHOLESTEROL (test code = 2210) 261 MG/DL TRIGLYCERIDES (test code = 2232) 159 MG/DL HDL CHOLESTEROL (test code = 2220) 82 MG/DL CALC LDL CHOL (test code = 2237) 150 MG/DL RISK RATIO LDL/HDL (test cod e = 2238) 1.83 RATIO COMPREHENSIVE METABOLIC [id number] 00:00:00* Test Item Value Reference Range Interpretation Comme nts GLUCOSE (test code = 2217) 144 MG/DL BUN (test code = 2208) 15 MG/DL CREATININE (test code = 2214) 0.85 MG/DL eGFR AMER. (test cod e = 29362) 87 ML/MIN/1.73 eGFR NON- AMER. (test code = 52710) 75 ML/MIN/1.73 CALC BUN/CREAT (test code = 2235) 18 RATIO SODIUM (test code = 2231) 133 MEQ/L POTASSIUM (test code = 2228) 4.5 MEQ/L CHLORIDE (test code = 2215) 93 MEQ/L CARBON DIOXIDE (test code = 2206) 28 MEQ/L CALCIUM (test code = 2209) 9.7 MG/DL PROTEIN, TOTAL (test code = 2229) 7.5 G/DL ALBUMIN (test code = 2201) 5.0 G/DL CALC GLOBULIN (test code = 2240) 2.5 G/DL CALC A/G RATIO (test code = 2234) 2.0 RATIO BILIRUBIN, TOTAL (test code = 2207) <0.2 MG/DL ALKALINE PHOSPHATASE (test code = 2204) 117 U/L AST (test code = 2218) 27 U/L ALT (test code = 2219) 50 U/L HEMOGLOBIN [id number] 00:00:00* Test Item Value Reference Range Interpretation Comme nts HEMOGLOBIN A1c (test code = 47416) 6.6 % Cristian So AustinTHYROID II PROFILE (T3U, T4, T7, TSH)2020-05-23 00:00:00* Test Item Value Reference Range Interpretation Comme nts T-UPTAKE (test code = 2817) 30.2 % THYROX. BIND. CAPAC. (test c ode = 75420) 1.1 T4 (THYROXINE) (test code = 2819) 4.3 UG/DL CORRECTED T4 (FTI) (test cod e = 2820) 3.9 UG/DL TSH, THIRD GENERATION (test code = 2821) 18.900 UIU/ML HEMOGLOBIN [id number] 00:00:00* Test Item Value Reference Range Interpretation Comme nts HEMOGLOBIN A1c (test code = 08109) 6.6 % LIPID [id number] 00:00:00* Test Item Value Reference Range Interpretation Comme nts CHOLESTEROL (test code = 2210) 261 MG/DL TRIGLYCERIDES (test code = 2232) 159 MG/DL HDL CHOLESTEROL (test code = 2220) 82 MG/DL CALC LDL CHOL (test code = 2237) 150 MG/DL RISK RATIO LDL/HDL (test cod e = 2238) 1.83 RATIO COMPREHENSIVE METABOLIC [id number] 00:00:00* Test Item Value Reference Range Interpretation Comme nts GLUCOSE (test code = 2217) 144 MG/DL BUN (test code = 2208) 15 MG/DL CREATININE (test code = 2214) 0.85 MG/DL eGFR AMER. (test cod e = 35102) 87 ML/MIN/1.73 eGFR NON- AMER. (test code = 82019) 75 ML/MIN/1.73 CALC BUN/CREAT (test code = 2235) 18 RATIO SODIUM (test code = 2231) 133 MEQ/L POTASSIUM (test code = 2228) 4.5 MEQ/L CHLORIDE (test code = 2215) 93 MEQ/L CARBON DIOXIDE (test code = 6) 28 MEQ/L CALCIUM (test code = 9) 9.7 MG/DL PROTEIN, TOTAL (test code = 2228) 7.5 G/DL ALBUMIN (test code = 2200) 5.0 G/DL CALC GLOBULIN (test code = 2240) 2.5 G/DL CALC A/G RATIO (test code = 2234) 2.0 RATIO BILIRUBIN, TOTAL (test code = 2206) <0.2 MG/DL ALKALINE PHOSPHATASE (test code = 2203) 117 U/L AST (test code = 2217) 27 U/L ALT (test code = 2218) 50 U/L THYROID II PROFILE (T3U, T4, T7, TSH)2020-05-23 00:00:00* Test Item Value Reference Range Interpretation Comme nts T-UPTAKE (test code = 2816) 30.2 % THYROX. BIND. CAPAC. (test c ode = 10296) 1.1 T4 (THYROXINE) (test code = 2819) 4.3 UG/DL CORRECTED T4 (FTI) (test cod e = 2820) 3.9 UG/DL TSH, THIRD GENERATION (test code = 2821) 18.900 UIU/ML LIPID [id number] 00:00:00* Test Item Value Reference Range Interpretation Comme nts CHOLESTEROL (test code = 2210) 261 MG/DL TRIGLYCERIDES (test code = 2232) 159 MG/DL HDL CHOLESTEROL (test code = 2220) 82 MG/DL CALC LDL CHOL (test code = 2237) 150 MG/DL RISK RATIO LDL/HDL (test cod e = 2238) 1.83 RATIO Cristian F AustinHEMOGLOBIN [id number] 00:00:00* Test Item Value Reference Range Interpretation Comme nts HEMOGLOBIN A1c (test code = 09760) 6.6 % LIPID [id number] 00:00:00* Test Item Value Reference Range Interpretation Comme nts CHOLESTEROL (test code = 2210) 261 MG/DL TRIGLYCERIDES (test code = 2232) 159 MG/DL HDL CHOLESTEROL (test code = 2220) 82 MG/DL CALC LDL CHOL (test code = 2237) 150 MG/DL RISK RATIO LDL/HDL (test cod e = 2238) 1.83 RATIO COMPREHENSIVE METABOLIC [id number] 00:00:00* Test Item Value Reference Range Interpretation Comme nts GLUCOSE (test code = 2217) 144 MG/DL BUN (test code = 2208) 15 MG/DL CREATININE (test code = 2214) 0.85 MG/DL eGFR AMER. (test cod e = 29961) 87 ML/MIN/1.73 eGFR NON- AMER. (test code = 44272) 75 ML/MIN/1.73 CALC BUN/CREAT (test code = 2235) 18 RATIO SODIUM (test code = 2231) 133 MEQ/L POTASSIUM (test code = 2228) 4.5 MEQ/L CHLORIDE (test code = 2215) 93 MEQ/L CARBON DIOXIDE (test code = 2206) 28 MEQ/L CALCIUM (test code = 2209) 9.7 MG/DL PROTEIN, TOTAL (test code = 2229) 7.5 G/DL ALBUMIN (test code = 2201) 5.0 G/DL CALC GLOBULIN (test code = 2240) 2.5 G/DL CALC A/G RATIO (test code = 2234) 2.0 RATIO BILIRUBIN, TOTAL (test code = 2207) <0.2 MG/DL ALKALINE PHOSPHATASE (test code = 2204) 117 U/L AST (test code = 2218) 27 U/L ALT (test code = 2219) 50 U/L THYROID II PROFILE (T3U, T4, T7, TSH)2020-05-23 00:00:00* Test Item Value Reference Range Interpretation Comme nts T-UPTAKE (test code = 2817) 30.2 % THYROX. BIND. CAPAC. (test c ode = 92770) 1.1 T4 (THYROXINE) (test code = 2819) 4.3 UG/DL CORRECTED T4 (FTI) (test cod e = 2820) 3.9 UG/DL TSH, THIRD GENERATION (test code = 2821) 18.900 UIU/ML COMPREHENSIVE METABOLIC [id number] 00:00:00* Test Item Value Reference Range Interpretation Comme nts GLUCOSE (test code = 2217) 144 MG/DL BUN (test code = 2208) 15 MG/DL CREATININE (test code = 2214) 0.85 MG/DL eGFR AMER. (test cod e = ) 87 ML/MIN/1.73 eGFR NON- AMER. (test code = 80531) 75 ML/MIN/1.73 CALC BUN/CREAT (test code = 2235) 18 RATIO SODIUM (test code = 2231) 133 MEQ/L POTASSIUM (test code = 2228) 4.5 MEQ/L CHLORIDE (test code = 2215) 93 MEQ/L CARBON DIOXIDE (test code = 2206) 28 MEQ/L CALCIUM (test code = 2209) 9.7 MG/DL PROTEIN, TOTAL (test code = 222) 7.5 G/DL ALBUMIN (test code = 2201) 5.0 G/DL CALC GLOBULIN (test code = 2240) 2.5 G/DL CALC A/G RATIO (test code = 2234) 2.0 RATIO BILIRUBIN, TOTAL (test code = 220) <0.2 MG/DL ALKALINE PHOSPHATASE (test code = 2204) 117 U/L AST (test code = 221) 27 U/L ALT (test code = 2219) 50 U/L Cristian StollTHYROID II PROFILE (T3U, T4, T7, TSH)2020-05-23 00:00:00* Test Item Value Reference Range Interpretation Comme nts T-UPTAKE (test code = 2817) 30.2 % THYROX. BIND. CAPAC. (test c ode = 15630) 1.1 T4 (THYROXINE) (test code = 2819) 4.3 UG/DL CORRECTED T4 (FTI) (test cod e = 2820) 3.9 UG/DL TSH, THIRD GENERATION (test code = 2821) 18.900 UIU/ML Cristian StollHEMOGLOBIN [id number] 00:00:00* Test Item Value Reference Range Interpretation Comme nts HEMOGLOBIN A1c (test code = 67653) 6.6 % Cristian StollLIPID [id number] 00:00:00* Test Item Value Reference Range Interpretation Comme nts CHOLESTEROL (test code = 2210) 261 MG/DL TRIGLYCERIDES (test code = 2232) 159 MG/DL HDL CHOLESTEROL (test code = 2220) 82 MG/DL CALC LDL CHOL (test code = 2237) 150 MG/DL RISK RATIO LDL/HDL (test cod e = 2238) 1.83 RATIO Cristian StollCOMPREHENSIVE METABOLIC [id number] 00:00:00* Test Item Value Reference Range Interpretation Comme nts GLUCOSE (test code = 2217) 144 MG/DL BUN (test code = 2208) 15 MG/DL CREATININE (test code = 2214) 0.85 MG/DL eGFR AMER. (test cod e = 62587) 87 ML/MIN/1.73 eGFR NON- AMER. (test code = 79760) 75 ML/MIN/1.73 CALC BUN/CREAT (test code = 2235) 18 RATIO SODIUM (test code = 2231) 133 MEQ/L POTASSIUM (test code = 2228) 4.5 MEQ/L CHLORIDE (test code = 2215) 93 MEQ/L CARBON DIOXIDE (test code = 2206) 28 MEQ/L CALCIUM (test code = 2209) 9.7 MG/DL PROTEIN, TOTAL (test code = 2229) 7.5 G/DL ALBUMIN (test code = 2201) 5.0 G/DL CALC GLOBULIN (test code = 2240) 2.5 G/DL CALC A/G RATIO (test code = 2234) 2.0 RATIO BILIRUBIN, TOTAL (test code = 2207) <0.2 MG/DL ALKALINE PHOSPHATASE (test code = 2204) 117 U/L AST (test code = 2218) 27 U/L ALT (test code = 2219) 50 U/L Cristian StollTHYROID II PROFILE (T3U, T4, T7, TSH)2020-05-23 00:00:00* Test Item Value Reference Range Interpretation Comme nts T-UPTAKE (test code = 2817) 30.2 % THYROX. BIND. CAPAC. (test c ode = 34152) 1.1 T4 (THYROXINE) (test code = 2819) 4.3 UG/DL CORRECTED T4 (FTI) (test cod e = 2820) 3.9 UG/DL TSH, THIRD GENERATION (test code = 2821) 18.900 UIU/ML Cristian StollHEMOGLOBIN [id number] 00:00:00* Test Item Value Reference Range Interpretation Comme nts HEMOGLOBIN A1c (test code = 63153) 6.6 % Cristian StollLIPID [id number] 00:00:00* Test Item Value Reference Range Interpretation Comme nts CHOLESTEROL (test code = 2210) 261 MG/DL TRIGLYCERIDES (test code = 2232) 159 MG/DL HDL CHOLESTEROL (test code = 2220) 82 MG/DL CALC LDL CHOL (test code = 2237) 150 MG/DL RISK RATIO LDL/HDL (test cod e = 2238) 1.83 RATIO Cristian StollCOMPREHENSIVE METABOLIC [id number] 00:00:00* Test Item Value Reference Range Interpretation Comme nts GLUCOSE (test code = 2217) 144 MG/DL BUN (test code = 2208) 15 MG/DL CREATININE (test code = 2214) 0.85 MG/DL eGFR AMER. (test cod e = 61688) 87 ML/MIN/1.73 eGFR NON- AMER. (test code = 43582) 75 ML/MIN/1.73 CALC BUN/CREAT (test code = 2235) 18 RATIO SODIUM (test code = 2231) 133 MEQ/L POTASSIUM (test code = 2228) 4.5 MEQ/L CHLORIDE (test code = 2215) 93 MEQ/L CARBON DIOXIDE (test code = 2206) 28 MEQ/L CALCIUM (test code = 2209) 9.7 MG/DL PROTEIN, TOTAL (test code = 2229) 7.5 G/DL ALBUMIN (test code = 2201) 5.0 G/DL CALC GLOBULIN (test code = 2240) 2.5 G/DL CALC A/G RATIO (test code = 2234) 2.0 RATIO BILIRUBIN, TOTAL (test code = 2207) <0.2 MG/DL ALKALINE PHOSPHATASE (test code = 2204) 117 U/L AST (test code = 2218) 27 U/L ALT (test code = 2219) 50 U/L Cristian So AustinLIPID [id number] 00:00:00* Test Item Value Reference Range Interpretation Comme nts CHOLESTEROL (test code = 2210) 261 MG/DL TRIGLYCERIDES (test code = 2232) 159 MG/DL HDL CHOLESTEROL (test code = 2220) 82 MG/DL CALC LDL CHOL (test code = 2237) 150 MG/DL RISK RATIO LDL/HDL (test cod e = 2238) 1.83 RATIO Cristian StollTHYROID II PROFILE (T3U, T4, T7, TSH)2020-05-23 00:00:00* Test Item Value Reference Range Interpretation Comme nts T-UPTAKE (test code = 2817) 30.2 % THYROX. BIND. CAPAC. (test c ode = 91111) 1.1 T4 (THYROXINE) (test code = 2819) 4.3 UG/DL CORRECTED T4 (FTI) (test cod e = 2820) 3.9 UG/DL TSH, THIRD GENERATION (test code = 2821) 18.900 UIU/ML Cristian So JermanCOMPREHENSIVE METABOLIC [id number] 00:00:00* Test Item Value Reference Range Interpretation Comme nts GLUCOSE (test code = 2217) 144 MG/DL BUN (test code = 2208) 15 MG/DL CREATININE (test code = 2214) 0.85 MG/DL eGFR AMER. (test cod e = 09867) 87 ML/MIN/1.73 eGFR NON- AMER. (test code = 92728) 75 ML/MIN/1.73 CALC BUN/CREAT (test code = 2235) 18 RATIO SODIUM (test code = 2231) 133 MEQ/L POTASSIUM (test code = 2228) 4.5 MEQ/L CHLORIDE (test code = 2215) 93 MEQ/L CARBON DIOXIDE (test code = 2206) 28 MEQ/L CALCIUM (test code = 2209) 9.7 MG/DL PROTEIN, TOTAL (test code = 2229) 7.5 G/DL ALBUMIN (test code = 2201) 5.0 G/DL CALC GLOBULIN (test code = 2240) 2.5 G/DL CALC A/G RATIO (test code = 2234) 2.0 RATIO BILIRUBIN, TOTAL (test code = 2207) <0.2 MG/DL ALKALINE PHOSPHATASE (test code = 2204) 117 U/L AST (test code = 2218) 27 U/L ALT (test code = 2219) 50 U/L Cristian So JermanTHYROID II PROFILE (T3U, T4, T7, TSH)2020-05-23 00:00:00* Test Item Value Reference Range Interpretation Comme nts T-UPTAKE (test code = 2817) 30.2 % THYROX. BIND. CAPAC. (test c ode = 45188) 1.1 T4 (THYROXINE) (test code = 2819) 4.3 UG/DL CORRECTED T4 (FTI) (test cod e = 2820) 3.9 UG/DL TSH, THIRD GENERATION (test code = 2821) 18.900 UIU/ML Cristian StollHEMOGLOBIN [id number] 00:00:00* Test Item Value Reference Range Interpretation Comme chiara HEMOGLOBIN A1c (test code = 82317) 6.6 % Cristian StollLIPID [id number] 00:00:00* Test Item Value Reference Range Interpretation Comme nts CHOLESTEROL (test code = 2210) 261 MG/DL TRIGLYCERIDES (test code = 2232) 159 MG/DL HDL CHOLESTEROL (test code = 2220) 82 MG/DL CALC LDL CHOL (test code = 2237) 150 MG/DL RISK RATIO LDL/HDL (test cod e = 2238) 1.83 RATIO Cristian StollCOMPREHENSIVE METABOLIC [id number] 00:00:00* Test Item Value Reference Range Interpretation Comme nts GLUCOSE (test code = 2217) 144 MG/DL BUN (test code = 2208) 15 MG/DL CREATININE (test code = 2214) 0.85 MG/DL eGFR AMER. (test cod e = 12534) 87 ML/MIN/1.73 eGFR NON- AMER. (test code = 44265) 75 ML/MIN/1.73 CALC BUN/CREAT (test code = 2235) 18 RATIO SODIUM (test code = 2231) 133 MEQ/L POTASSIUM (test code = 2228) 4.5 MEQ/L CHLORIDE (test code = 2215) 93 MEQ/L CARBON DIOXIDE (test code = 2206) 28 MEQ/L CALCIUM (test code = 2209) 9.7 MG/DL PROTEIN, TOTAL (test code = 2229) 7.5 G/DL ALBUMIN (test code = 2201) 5.0 G/DL CALC GLOBULIN (test code = 2240) 2.5 G/DL CALC A/G RATIO (test code = 2234) 2.0 RATIO BILIRUBIN, TOTAL (test code = 2207) <0.2 MG/DL ALKALINE PHOSPHATASE (test code = 2204) 117 U/L AST (test code = 2218) 27 U/L ALT (test code = 2219) 50 U/L Cristian StollTHYROID II PROFILE (T3U, T4, T7, TSH)2020-05-23 00:00:00* Test Item Value Reference Range Interpretation Comme nts T-UPTAKE (test code = 2817) 30.2 % THYROX. BIND. CAPAC. (test c ode = 60678) 1.1 T4 (THYROXINE) (test code = 2819) 4.3 UG/DL CORRECTED T4 (FTI) (test cod e = 2820) 3.9 UG/DL TSH, THIRD GENERATION (test code = 2821) 18.900 UIU/ML Cristian StollHEMOGLOBIN [id number] 00:00:00* Test Item Value Reference Range Interpretation Comme nts HEMOGLOBIN A1c (test code = 21256) 6.6 % Cristian StollLIPID [id number] 00:00:00* Test Item Value Reference Range Interpretation Comme nts CHOLESTEROL (test code = 2210) 261 MG/DL TRIGLYCERIDES (test code = 2232) 159 MG/DL HDL CHOLESTEROL (test code = 2220) 82 MG/DL CALC LDL CHOL (test code = 2237) 150 MG/DL RISK RATIO LDL/HDL (test cod e = 2238) 1.83 RATIO Cristian StollCOMPREHENSIVE METABOLIC [id number] 00:00:00* Test Item Value Reference Range Interpretation Comme nts GLUCOSE (test code = 2217) 144 MG/DL BUN (test code = 2208) 15 MG/DL CREATININE (test code = 2214) 0.85 MG/DL eGFR AMER. (test cod e = 88140) 87 ML/MIN/1.73 eGFR NON- AMER. (test code = 75019) 75 ML/MIN/1.73 CALC BUN/CREAT (test code = 2235) 18 RATIO SODIUM (test code = 2231) 133 MEQ/L POTASSIUM (test code = 2228) 4.5 MEQ/L CHLORIDE (test code = 2215) 93 MEQ/L CARBON DIOXIDE (test code = 2206) 28 MEQ/L CALCIUM (test code = 2209) 9.7 MG/DL PROTEIN, TOTAL (test code = 2229) 7.5 G/DL ALBUMIN (test code = 2201) 5.0 G/DL CALC GLOBULIN (test code = 2240) 2.5 G/DL CALC A/G RATIO (test code = 2234) 2.0 RATIO BILIRUBIN, TOTAL (test code = 2207) <0.2 MG/DL ALKALINE PHOSPHATASE (test code = 2204) 117 U/L AST (test code = 2218) 27 U/L ALT (test code = 2219) 50 U/L Cristian StollTHYROID II PROFILE (T3U, T4, T7, TSH)2020-05-23 00:00:00* Test Item Value Reference Range Interpretation Comme nts T-UPTAKE (test code = 2817) 30.2 % THYROX. BIND. CAPAC. (test c ode = 54939) 1.1 T4 (THYROXINE) (test code = 2819) 4.3 UG/DL CORRECTED T4 (FTI) (test cod e = 2820) 3.9 UG/DL TSH, THIRD GENERATION (test code = 2821) 18.900 UIU/ML Cristian StollHEMOGLOBIN [id number] 00:00:00* Test Item Value Reference Range Interpretation Comme chiara HEMOGLOBIN A1c (test code = 55511) 6.6 % Cristian StollLIPID [id number] 00:00:00* Test Item Value Reference Range Interpretation Comme nts CHOLESTEROL (test code = 2210) 261 MG/DL TRIGLYCERIDES (test code = 2232) 159 MG/DL HDL CHOLESTEROL (test code = 2220) 82 MG/DL CALC LDL CHOL (test code = 2237) 150 MG/DL RISK RATIO LDL/HDL (test cod e = 2238) 1.83 RATIO Cristian StollCOMPREHENSIVE METABOLIC [id number] 00:00:00* Test Item Value Reference Range Interpretation Comme nts GLUCOSE (test code = 2217) 144 MG/DL BUN (test code = 2208) 15 MG/DL CREATININE (test code = 2214) 0.85 MG/DL eGFR AMER. (test cod e = 47380) 87 ML/MIN/1.73 eGFR NON- AMER. (test code = 76039) 75 ML/MIN/1.73 CALC BUN/CREAT (test code = 2235) 18 RATIO SODIUM (test code = 2231) 133 MEQ/L POTASSIUM (test code = 2228) 4.5 MEQ/L CHLORIDE (test code = 2215) 93 MEQ/L CARBON DIOXIDE (test code = 2206) 28 MEQ/L CALCIUM (test code = 2209) 9.7 MG/DL PROTEIN, TOTAL (test code = 2229) 7.5 G/DL ALBUMIN (test code = 2201) 5.0 G/DL CALC GLOBULIN (test code = 2240) 2.5 G/DL CALC A/G RATIO (test code = 2234) 2.0 RATIO BILIRUBIN, TOTAL (test code = 2207) <0.2 MG/DL ALKALINE PHOSPHATASE (test code = 2204) 117 U/L AST (test code = 2218) 27 U/L ALT (test code = 2219) 50 U/L Cristian StollTHYROID II PROFILE (T3U, T4, T7, TSH)2020-05-23 00:00:00* Test Item Value Reference Range Interpretation Comme nts T-UPTAKE (test code = 281) 30.2 % THYROX. BIND. CAPAC. (test c ode = 42592) 1.1 T4 (THYROXINE) (test code = 2819) 4.3 UG/DL CORRECTED T4 (FTI) (test cod e = 2820) 3.9 UG/DL TSH, THIRD GENERATION (test code = 2821) 18.900 UIU/ML Cristian StollHEMOGLOBIN [id number] 00:00:00* Test Item Value Reference Range Interpretation Comme nts HEMOGLOBIN A1c (test code = 29720) 6.6 % Cristian StollLIPID [id number] 00:00:00* Test Item Value Reference Range Interpretation Comme nts CHOLESTEROL (test code = 2210) 261 MG/DL TRIGLYCERIDES (test code = 2232) 159 MG/DL HDL CHOLESTEROL (test code = 2220) 82 MG/DL CALC LDL CHOL (test code = 2237) 150 MG/DL RISK RATIO LDL/HDL (test cod e = 2238) 1.83 RATIO Cristian StollCOMPREHENSIVE METABOLIC [id number] 00:00:00* Test Item Value Reference Range Interpretation Comme nts GLUCOSE (test code = 2217) 144 MG/DL BUN (test code = 2208) 15 MG/DL CREATININE (test code = 2214) 0.85 MG/DL eGFR AMER. (test cod e = 09633) 87 ML/MIN/1.73 eGFR NON- AMER. (test code = 05970) 75 ML/MIN/1.73 CALC BUN/CREAT (test code = 2235) 18 RATIO SODIUM (test code = 2231) 133 MEQ/L POTASSIUM (test code = 2228) 4.5 MEQ/L CHLORIDE (test code = 2215) 93 MEQ/L CARBON DIOXIDE (test code = 2206) 28 MEQ/L CALCIUM (test code = 2209) 9.7 MG/DL PROTEIN, TOTAL (test code = 2228) 7.5 G/DL ALBUMIN (test code = 2201) 5.0 G/DL CALC GLOBULIN (test code = 2240) 2.5 G/DL CALC A/G RATIO (test code = 2234) 2.0 RATIO BILIRUBIN, TOTAL (test code = 2206) <0.2 MG/DL ALKALINE PHOSPHATASE (test code = 2203) 117 U/L AST (test code = 2217) 27 U/L ALT (test code = 221) 50 U/L Cristian StollTHYROID II PROFILE (T3U, T4, T7, TSH)2020-05-23 00:00:00* Test Item Value Reference Range Interpretation Comme nts T-UPTAKE (test code = 2817) 30.2 % THYROX. BIND. CAPAC. (test c ode = 19390) 1.1 T4 (THYROXINE) (test code = 2819) 4.3 UG/DL CORRECTED T4 (FTI) (test cod e = 2820) 3.9 UG/DL TSH, THIRD GENERATION (test code = 2821) 18.900 UIU/ML Cristian So AustinHEMOGLOBIN [id number] 00:00:00* Test Item Value Reference Range Interpretation Comme nts HEMOGLOBIN A1c (test code = 61276) 6.6 % Cristian So AustinHEMOGLOBIN [id number] 00:00:00* Test Item Value Reference Range Interpretation Comme nts HEMOGLOBIN A1c (test code = 15189) 6.6 % Cristian So PortlandLIPID [id number] 00:00:00* Test Item Value Reference Range Interpretation Comme nts CHOLESTEROL (test code = 2210) 261 MG/DL TRIGLYCERIDES (test code = 2232) 159 MG/DL HDL CHOLESTEROL (test code = 2220) 82 MG/DL CALC LDL CHOL (test code = 2237) 150 MG/DL RISK RATIO LDL/HDL (test cod e = 2238) 1.83 RATIO Cristian StollCOMPREHENSIVE METABOLIC [id number] 00:00:00* Test Item Value Reference Range Interpretation Comme nts GLUCOSE (test code = 2217) 144 MG/DL BUN (test code = 2208) 15 MG/DL CREATININE (test code = 2214) 0.85 MG/DL eGFR AMER. (test cod e = 95410) 87 ML/MIN/1.73 eGFR NON- AMER. (test code = 19004) 75 ML/MIN/1.73 CALC BUN/CREAT (test code = 2235) 18 RATIO SODIUM (test code = 2231) 133 MEQ/L POTASSIUM (test code = 2228) 4.5 MEQ/L CHLORIDE (test code = 2215) 93 MEQ/L CARBON DIOXIDE (test code = 2206) 28 MEQ/L CALCIUM (test code = 2209) 9.7 MG/DL PROTEIN, TOTAL (test code = 2229) 7.5 G/DL ALBUMIN (test code = 2201) 5.0 G/DL CALC GLOBULIN (test code = 2240) 2.5 G/DL CALC A/G RATIO (test code = 2234) 2.0 RATIO BILIRUBIN, TOTAL (test code = 2207) <0.2 MG/DL ALKALINE PHOSPHATASE (test code = 2204) 117 U/L AST (test code = 2218) 27 U/L ALT (test code = 2219) 50 U/L Cristian StollTHYROID II PROFILE (T3U, T4, T7, TSH)2020-05-23 00:00:00* Test Item Value Reference Range Interpretation Comme nts T-UPTAKE (test code = 2817) 30.2 % THYROX. BIND. CAPAC. (test c ode = 94048) 1.1 T4 (THYROXINE) (test code = 2819) 4.3 UG/DL CORRECTED T4 (FTI) (test cod e = 2820) 3.9 UG/DL TSH, THIRD GENERATION (test code = 2821) 18.900 UIU/ML Cristian StollHEMOGLOBIN [id number] 00:00:00* Test Item Value Reference Range Interpretation Comme nts HEMOGLOBIN A1c (test code = 46995) 6.6 % LIPID [id number] 00:00:00* Test Item Value Reference Range Interpretation Comme nts CHOLESTEROL (test code = 2210) 267 MG/DL TRIGLYCERIDES (test code = 2232) 137 MG/DL HDL CHOLESTEROL (test code = 2220) 48 MG/DL CALC LDL CHOL (test code = 2237) 192 MG/DL RISK RATIO LDL/HDL (test cod e = 2238) 4.00 RATIO COMPREHENSIVE METABOLIC [id number] 00:00:00* Test Item Value Reference Range Interpretation Comme nts GLUCOSE (test code = 2217) 155 MG/DL BUN (test code = 2208) 14 MG/DL CREATININE (test code = 2214) 0.52 MG/DL eGFR AMER. (test cod e = 67903) 122 ML/MIN/1.73 eGFR NON- AMER. (test code = 13429) 105 ML/MIN/1.73 CALC BUN/CREAT (test code = 2235) 27 RATIO SODIUM (test code = 2231) 142 MEQ/L POTASSIUM (test code = 2228) 4.4 MEQ/L CHLORIDE (test code = 2215) 104 MEQ/L CARBON DIOXIDE (test code = 2206) 25 MEQ/L CALCIUM (test code = 2209) 9.2 MG/DL PROTEIN, TOTAL (test code = 2229) 7.1 G/DL ALBUMIN (test code = 2201) 4.5 G/DL CALC GLOBULIN (test code = 2240) 2.6 G/DL CALC A/G RATIO (test code = 2234) 1.7 RATIO BILIRUBIN, TOTAL (test code = 2207) <0.2 MG/DL ALKALINE PHOSPHATASE (test code = 2204) 115 U/L AST (test code = 2218) 17 U/L ALT (test code = 2219) 27 U/L THYROID II PROFILE (T3U, T4, T7, TSH)2019 00:00:00* Test Item Value Reference Range Interpretation Comme nts T-UPTAKE (test code = 2817) 33.1 % THYROX. BIND. CAPAC. (test c ode = 32713) 1.0 T4 (THYROXINE) (test code = 2819) 4.7 UG/DL CORRECTED T4 (FTI) (test cod e = 2820) 4.7 UG/DL TSH, THIRD GENERATION (test code = 2821) 0.201 UIU/ML HEMOGLOBIN [id number] 00:00:00* Test Item Value Reference Range Interpretation Comme nts HEMOGLOBIN A1c (test code = 86290) 6.7 % HEMOGLOBIN [id number] 00:00:00* Test Item Value Reference Range Interpretation Comme nts HEMOGLOBIN A1c (test code = 45655) 6.7 % Cristian So AustinLIPID [id number] 00:00:00* Test Item Value Reference Range Interpretation Comme nts CHOLESTEROL (test code = 2210) 267 MG/DL TRIGLYCERIDES (test code = 2232) 137 MG/DL HDL CHOLESTEROL (test code = 2220) 48 MG/DL CALC LDL CHOL (test code = 2237) 192 MG/DL RISK RATIO LDL/HDL (test cod e = 2238) 4.00 RATIO COMPREHENSIVE METABOLIC [id number] 00:00:00* Test Item Value Reference Range Interpretation Comme nts GLUCOSE (test code = 2217) 155 MG/DL BUN (test code = 2208) 14 MG/DL CREATININE (test code = 2214) 0.52 MG/DL eGFR AMER. (test cod e = 41752) 122 ML/MIN/1.73 eGFR NON- AMER. (test code = 78358) 105 ML/MIN/1.73 CALC BUN/CREAT (test code = 2235) 27 RATIO SODIUM (test code = 2231) 142 MEQ/L POTASSIUM (test code = 2228) 4.4 MEQ/L CHLORIDE (test code = 2215) 104 MEQ/L CARBON DIOXIDE (test code = 2206) 25 MEQ/L CALCIUM (test code = 2209) 9.2 MG/DL PROTEIN, TOTAL (test code = 2229) 7.1 G/DL ALBUMIN (test code = 2201) 4.5 G/DL CALC GLOBULIN (test code = 2240) 2.6 G/DL CALC A/G RATIO (test code = 2234) 1.7 RATIO BILIRUBIN, TOTAL (test code = 2207) <0.2 MG/DL ALKALINE PHOSPHATASE (test code = 2204) 115 U/L AST (test code = 2218) 17 U/L ALT (test code = 2219) 27 U/L THYROID II PROFILE (T3U, T4, T7, TSH)2019 00:00:00* Test Item Value Reference Range Interpretation Comme nts T-UPTAKE (test code = 2817) 33.1 % THYROX. BIND. CAPAC. (test c ode = 74714) 1.0 T4 (THYROXINE) (test code = 2819) 4.7 UG/DL CORRECTED T4 (FTI) (test cod e = 2820) 4.7 UG/DL TSH, THIRD GENERATION (test code = 2821) 0.201 UIU/ML HEMOGLOBIN [id number] 00:00:00* Test Item Value Reference Range Interpretation Comme nts HEMOGLOBIN A1c (test code = 13350) 6.7 % LIPID [id number] 00:00:00* Test Item Value Reference Range Interpretation Comme nts CHOLESTEROL (test code = 2210) 267 MG/DL TRIGLYCERIDES (test code = 2232) 137 MG/DL HDL CHOLESTEROL (test code = 2220) 48 MG/DL CALC LDL CHOL (test code = 2237) 192 MG/DL RISK RATIO LDL/HDL (test cod e = 2238) 4.00 RATIO COMPREHENSIVE METABOLIC [id number] 00:00:00* Test Item Value Reference Range Interpretation Comme nts GLUCOSE (test code = 2217) 155 MG/DL BUN (test code = 2208) 14 MG/DL CREATININE (test code = 2214) 0.52 MG/DL eGFR AMER. (test cod e = 97273) 122 ML/MIN/1.73 eGFR NON- AMER. (test code = 75504) 105 ML/MIN/1.73 CALC BUN/CREAT (test code = 2235) 27 RATIO SODIUM (test code = 2231) 142 MEQ/L POTASSIUM (test code = 2228) 4.4 MEQ/L CHLORIDE (test code = 2215) 104 MEQ/L CARBON DIOXIDE (test code = 2206) 25 MEQ/L CALCIUM (test code = 2209) 9.2 MG/DL PROTEIN, TOTAL (test code = 2229) 7.1 G/DL ALBUMIN (test code = 2201) 4.5 G/DL CALC GLOBULIN (test code = 2240) 2.6 G/DL CALC A/G RATIO (test code = 2234) 1.7 RATIO BILIRUBIN, TOTAL (test code = 2207) <0.2 MG/DL ALKALINE PHOSPHATASE (test code = 2204) 115 U/L AST (test code = 2218) 17 U/L ALT (test code = 2219) 27 U/L THYROID II PROFILE (T3U, T4, T7, TSH)2019 00:00:00* Test Item Value Reference Range Interpretation Comme nts T-UPTAKE (test code = 2817) 33.1 % THYROX. BIND. CAPAC. (test c ode = 97598) 1.0 T4 (THYROXINE) (test code = 2819) 4.7 UG/DL CORRECTED T4 (FTI) (test cod e = 2820) 4.7 UG/DL TSH, THIRD GENERATION (test code = 2821) 0.201 UIU/ML LIPID [id number] 00:00:00* Test Item Value Reference Range Interpretation Comme nts CHOLESTEROL (test code = 2210) 267 MG/DL TRIGLYCERIDES (test code = 2232) 137 MG/DL HDL CHOLESTEROL (test code = 2220) 48 MG/DL CALC LDL CHOL (test code = 2237) 192 MG/DL RISK RATIO LDL/HDL (test cod e = 2238) 4.00 RATIO Cristian F AustinHEMOGLOBIN [id number] 00:00:00* Test Item Value Reference Range Interpretation Comme nts HEMOGLOBIN A1c (test code = 70667) 6.7 % LIPID [id number] 00:00:00* Test Item Value Reference Range Interpretation Comme nts CHOLESTEROL (test code = 2210) 267 MG/DL TRIGLYCERIDES (test code = 2232) 137 MG/DL HDL CHOLESTEROL (test code = 2220) 48 MG/DL CALC LDL CHOL (test code = 2237) 192 MG/DL RISK RATIO LDL/HDL (test cod e = 2238) 4.00 RATIO COMPREHENSIVE METABOLIC [id number] 00:00:00* Test Item Value Reference Range Interpretation Comme nts GLUCOSE (test code = 2217) 155 MG/DL BUN (test code = 2208) 14 MG/DL CREATININE (test code = 2214) 0.52 MG/DL eGFR AMER. (test cod e = 48136) 122 ML/MIN/1.73 eGFR NON- AMER. (test code = 16164) 105 ML/MIN/1.73 CALC BUN/CREAT (test code = 2235) 27 RATIO SODIUM (test code = 2231) 142 MEQ/L POTASSIUM (test code = 2228) 4.4 MEQ/L CHLORIDE (test code = 2215) 104 MEQ/L CARBON DIOXIDE (test code = 2206) 25 MEQ/L CALCIUM (test code = 2209) 9.2 MG/DL PROTEIN, TOTAL (test code = 2229) 7.1 G/DL ALBUMIN (test code = 2201) 4.5 G/DL CALC GLOBULIN (test code = 2240) 2.6 G/DL CALC A/G RATIO (test code = 2234) 1.7 RATIO BILIRUBIN, TOTAL (test code = 2207) <0.2 MG/DL ALKALINE PHOSPHATASE (test code = 2204) 115 U/L AST (test code = 2218) 17 U/L ALT (test code = 2219) 27 U/L Cristian StollCOMPREHENSIVE METABOLIC [id number] 00:00:00* Test Item Value Reference Range Interpretation Comme nts GLUCOSE (test code = 2217) 155 MG/DL BUN (test code = 2208) 14 MG/DL CREATININE (test code = 2214) 0.52 MG/DL eGFR AMER. (test cod e = 15986) 122 ML/MIN/1.73 eGFR NON- AMER. (test code = 88622) 105 ML/MIN/1.73 CALC BUN/CREAT (test code = 2235) 27 RATIO SODIUM (test code = 2231) 142 MEQ/L POTASSIUM (test code = 2228) 4.4 MEQ/L CHLORIDE (test code = 2215) 104 MEQ/L CARBON DIOXIDE (test code = 2206) 25 MEQ/L CALCIUM (test code = 2209) 9.2 MG/DL PROTEIN, TOTAL (test code = 2229) 7.1 G/DL ALBUMIN (test code = 2201) 4.5 G/DL CALC GLOBULIN (test code = 2240) 2.6 G/DL CALC A/G RATIO (test code = 2234) 1.7 RATIO BILIRUBIN, TOTAL (test code = 2207) <0.2 MG/DL ALKALINE PHOSPHATASE (test code = 2204) 115 U/L AST (test code = 2218) 17 U/L ALT (test code = 2219) 27 U/L THYROID II PROFILE (T3U, T4, T7, TSH)2019 00:00:00* Test Item Value Reference Range Interpretation Comme nts T-UPTAKE (test code = 2817) 33.1 % THYROX. BIND. CAPAC. (test c ode = 78274) 1.0 T4 (THYROXINE) (test code = 2819) 4.7 UG/DL CORRECTED T4 (FTI) (test cod e = 2820) 4.7 UG/DL TSH, THIRD GENERATION (test code = 2821) 0.201 UIU/ML THYROID II PROFILE (T3U, T4, T7, TSH)2019 00:00:00* Test Item Value Reference Range Interpretation Comme nts T-UPTAKE (test code = 2817) 33.1 % THYROX. BIND. CAPAC. (test c ode = 46124) 1.0 T4 (THYROXINE) (test code = 2819) 4.7 UG/DL CORRECTED T4 (FTI) (test cod e = 2820) 4.7 UG/DL TSH, THIRD GENERATION (test code = 2821) 0.201 UIU/ML Cristian StollHEMOGLOBIN [id number] 00:00:00* Test Item Value Reference Range Interpretation Comme nts HEMOGLOBIN A1c (test code = 83734) 6.7 % Cristian StollLIPID [id number] 00:00:00* Test Item Value Reference Range Interpretation Comme nts CHOLESTEROL (test code = 2210) 267 MG/DL TRIGLYCERIDES (test code = 2232) 137 MG/DL HDL CHOLESTEROL (test code = 2220) 48 MG/DL CALC LDL CHOL (test code = 2237) 192 MG/DL RISK RATIO LDL/HDL (test cod e = 2238) 4.00 RATIO Cristian StollCOMPREHENSIVE METABOLIC [id number] 00:00:00* Test Item Value Reference Range Interpretation Comme nts GLUCOSE (test code = 2217) 155 MG/DL BUN (test code = 2208) 14 MG/DL CREATININE (test code = 2214) 0.52 MG/DL eGFR AMER. (test cod e = 17422) 122 ML/MIN/1.73 eGFR NON- AMER. (test code = 39137) 105 ML/MIN/1.73 CALC BUN/CREAT (test code = 2235) 27 RATIO SODIUM (test code = 2231) 142 MEQ/L POTASSIUM (test code = 2228) 4.4 MEQ/L CHLORIDE (test code = 2215) 104 MEQ/L CARBON DIOXIDE (test code = 2206) 25 MEQ/L CALCIUM (test code = 2209) 9.2 MG/DL PROTEIN, TOTAL (test code = 2229) 7.1 G/DL ALBUMIN (test code = 2201) 4.5 G/DL CALC GLOBULIN (test code = 2240) 2.6 G/DL CALC A/G RATIO (test code = 2234) 1.7 RATIO BILIRUBIN, TOTAL (test code = 7) <0.2 MG/DL ALKALINE PHOSPHATASE (test code = 2204) 115 U/L AST (test code = 2218) 17 U/L ALT (test code = 2219) 27 U/L Cristian StollTHYROID II PROFILE (T3U, T4, T7, TSH)2019 00:00:00* Test Item Value Reference Range Interpretation Comme nts T-UPTAKE (test code = 2817) 33.1 % THYROX. BIND. CAPAC. (test c ode = 88998) 1.0 T4 (THYROXINE) (test code = 2819) 4.7 UG/DL CORRECTED T4 (FTI) (test cod e = 2820) 4.7 UG/DL TSH, THIRD GENERATION (test code = 2821) 0.201 UIU/ML Cristian StollLIPID [id number] 00:00:00* Test Item Value Reference Range Interpretation Comme nts CHOLESTEROL (test code = 2210) 267 MG/DL TRIGLYCERIDES (test code = 2232) 137 MG/DL HDL CHOLESTEROL (test code = 2220) 48 MG/DL CALC LDL CHOL (test code = 2237) 192 MG/DL RISK RATIO LDL/HDL (test cod e = 2238) 4.00 RATIO Cristian StollHEMOGLOBIN [id number] 00:00:00* Test Item Value Reference Range Interpretation Comme nts HEMOGLOBIN A1c (test code = 89986) 6.7 % Cristian So AustinLIPID [id number] 00:00:00* Test Item Value Reference Range Interpretation Comme nts CHOLESTEROL (test code = 2210) 267 MG/DL TRIGLYCERIDES (test code = 2232) 137 MG/DL HDL CHOLESTEROL (test code = 2220) 48 MG/DL CALC LDL CHOL (test code = 2237) 192 MG/DL RISK RATIO LDL/HDL (test cod e = 2238) 4.00 RATIO Cristian F AustinCOMPREHENSIVE METABOLIC [id number] 00:00:00* Test Item Value Reference Range Interpretation Comme nts GLUCOSE (test code = 2217) 155 MG/DL BUN (test code = 2208) 14 MG/DL CREATININE (test code = 2214) 0.52 MG/DL eGFR AMER. (test cod e = 05864) 122 ML/MIN/1.73 eGFR NON- AMER. (test code = 09847) 105 ML/MIN/1.73 CALC BUN/CREAT (test code = 2235) 27 RATIO SODIUM (test code = 2231) 142 MEQ/L POTASSIUM (test code = 2228) 4.4 MEQ/L CHLORIDE (test code = 2215) 104 MEQ/L CARBON DIOXIDE (test code = 2206) 25 MEQ/L CALCIUM (test code = 2209) 9.2 MG/DL PROTEIN, TOTAL (test code = 2229) 7.1 G/DL ALBUMIN (test code = 2201) 4.5 G/DL CALC GLOBULIN (test code = 2240) 2.6 G/DL CALC A/G RATIO (test code = 2234) 1.7 RATIO BILIRUBIN, TOTAL (test code = 2207) <0.2 MG/DL ALKALINE PHOSPHATASE (test code = 2204) 115 U/L AST (test code = 2218) 17 U/L ALT (test code = 2219) 27 U/L Cristian Saray PortlandTHYROID II PROFILE (T3U, T4, T7, TSH)2019 00:00:00* Test Item Value Reference Range Interpretation Comme nts T-UPTAKE (test code = 2817) 33.1 % THYROX. BIND. CAPAC. (test c ode = 57984) 1.0 T4 (THYROXINE) (test code = 2819) 4.7 UG/DL CORRECTED T4 (FTI) (test cod e = 2820) 4.7 UG/DL TSH, THIRD GENERATION (test code = 2821) 0.201 UIU/ML Cristian Saray AustinCOMPREHENSIVE METABOLIC [id number] 00:00:00* Test Item Value Reference Range Interpretation Comme nts GLUCOSE (test code = 2217) 155 MG/DL BUN (test code = 2208) 14 MG/DL CREATININE (test code = 2214) 0.52 MG/DL eGFR AMER. (test cod e = ) 122 ML/MIN/1.73 eGFR NON- AMER. (test code = 34056) 105 ML/MIN/1.73 CALC BUN/CREAT (test code = 2235) 27 RATIO SODIUM (test code = 2231) 142 MEQ/L POTASSIUM (test code = 2228) 4.4 MEQ/L CHLORIDE (test code = 2215) 104 MEQ/L CARBON DIOXIDE (test code = 2206) 25 MEQ/L CALCIUM (test code = 2209) 9.2 MG/DL PROTEIN, TOTAL (test code = 2229) 7.1 G/DL ALBUMIN (test code = 2201) 4.5 G/DL CALC GLOBULIN (test code = 2240) 2.6 G/DL CALC A/G RATIO (test code = 2234) 1.7 RATIO BILIRUBIN, TOTAL (test code = 220) <0.2 MG/DL ALKALINE PHOSPHATASE (test code = 2204) 115 U/L AST (test code = 2218) 17 U/L ALT (test code = 2219) 27 U/L Cristian So PortlandTHYROID II PROFILE (T3U, T4, T7, TSH)2019 00:00:00* Test Item Value Reference Range Interpretation Comme nts T-UPTAKE (test code = 2817) 33.1 % THYROX. BIND. CAPAC. (test c ode = 92786) 1.0 T4 (THYROXINE) (test code = 2819) 4.7 UG/DL CORRECTED T4 (FTI) (test cod e = 2820) 4.7 UG/DL TSH, THIRD GENERATION (test code = 2821) 0.201 UIU/ML Cristian StollHEMOGLOBIN [id number] 00:00:00* Test Item Value Reference Range Interpretation Comme nts HEMOGLOBIN A1c (test code = 70609) 6.7 % Cristian F PortlandLIPID [id number] 00:00:00* Test Item Value Reference Range Interpretation Comme nts CHOLESTEROL (test code = 2210) 267 MG/DL TRIGLYCERIDES (test code = 2232) 137 MG/DL HDL CHOLESTEROL (test code = 2220) 48 MG/DL CALC LDL CHOL (test code = 2237) 192 MG/DL RISK RATIO LDL/HDL (test cod e = 2238) 4.00 RATIO Cristian F AustinCOMPREHENSIVE METABOLIC [id number] 00:00:00* Test Item Value Reference Range Interpretation Comme nts GLUCOSE (test code = 2217) 155 MG/DL BUN (test code = 2208) 14 MG/DL CREATININE (test code = 2214) 0.52 MG/DL eGFR AMER. (test cod e = 14984) 122 ML/MIN/1.73 eGFR NON- AMER. (test code = 72166) 105 ML/MIN/1.73 CALC BUN/CREAT (test code = 2235) 27 RATIO SODIUM (test code = 2231) 142 MEQ/L POTASSIUM (test code = 2228) 4.4 MEQ/L CHLORIDE (test code = 2215) 104 MEQ/L CARBON DIOXIDE (test code = 2206) 25 MEQ/L CALCIUM (test code = 2209) 9.2 MG/DL PROTEIN, TOTAL (test code = 2229) 7.1 G/DL ALBUMIN (test code = 2201) 4.5 G/DL CALC GLOBULIN (test code = 2240) 2.6 G/DL CALC A/G RATIO (test code = 2234) 1.7 RATIO BILIRUBIN, TOTAL (test code = 2207) <0.2 MG/DL ALKALINE PHOSPHATASE (test code = 2204) 115 U/L AST (test code = 2218) 17 U/L ALT (test code = 2219) 27 U/L Cristian StollTHYROID II PROFILE (T3U, T4, T7, TSH)2019 00:00:00* Test Item Value Reference Range Interpretation Comme nts T-UPTAKE (test code = 2817) 33.1 % THYROX. BIND. CAPAC. (test c ode = 93607) 1.0 T4 (THYROXINE) (test code = 2819) 4.7 UG/DL CORRECTED T4 (FTI) (test cod e = 2820) 4.7 UG/DL TSH, THIRD GENERATION (test code = 2821) 0.201 UIU/ML Cristian StollHEMOGLOBIN [id number] 00:00:00* Test Item Value Reference Range Interpretation Comme nts HEMOGLOBIN A1c (test code = 68759) 6.7 % Cristian StollLIPID [id number] 00:00:00* Test Item Value Reference Range Interpretation Comme nts CHOLESTEROL (test code = 2210) 267 MG/DL TRIGLYCERIDES (test code = 2232) 137 MG/DL HDL CHOLESTEROL (test code = 2220) 48 MG/DL CALC LDL CHOL (test code = 2237) 192 MG/DL RISK RATIO LDL/HDL (test cod e = 2238) 4.00 RATIO Cristian So JermanCOMPREHENSIVE METABOLIC [id number] 00:00:00* Test Item Value Reference Range Interpretation Comme nts GLUCOSE (test code = 2217) 155 MG/DL BUN (test code = 2208) 14 MG/DL CREATININE (test code = 2214) 0.52 MG/DL eGFR AMER. (test cod e = 50451) 122 ML/MIN/1.73 eGFR NON- AMER. (test code = 98117) 105 ML/MIN/1.73 CALC BUN/CREAT (test code = 2235) 27 RATIO SODIUM (test code = 2231) 142 MEQ/L POTASSIUM (test code = 2228) 4.4 MEQ/L CHLORIDE (test code = 2215) 104 MEQ/L CARBON DIOXIDE (test code = 2206) 25 MEQ/L CALCIUM (test code = 2209) 9.2 MG/DL PROTEIN, TOTAL (test code = 2229) 7.1 G/DL ALBUMIN (test code = 2201) 4.5 G/DL CALC GLOBULIN (test code = 2240) 2.6 G/DL CALC A/G RATIO (test code = 2234) 1.7 RATIO BILIRUBIN, TOTAL (test code = 2207) <0.2 MG/DL ALKALINE PHOSPHATASE (test code = 2204) 115 U/L AST (test code = 2218) 17 U/L ALT (test code = 2219) 27 U/L Cristian Saray AustinTHYROID II PROFILE (T3U, T4, T7, TSH)2019 00:00:00* Test Item Value Reference Range Interpretation Comme nts T-UPTAKE (test code = 281) 33.1 % THYROX. BIND. CAPAC. (test c ode = 89551) 1.0 T4 (THYROXINE) (test code = 2819) 4.7 UG/DL CORRECTED T4 (FTI) (test cod e = 2820) 4.7 UG/DL TSH, THIRD GENERATION (test code = 2821) 0.201 UIU/ML Cristian StollHEMOGLOBIN [id number] 00:00:00* Test Item Value Reference Range Interpretation Comme chiara HEMOGLOBIN A1c (test code = 91980) 6.7 % Cristian StollLIPID [id number] 00:00:00* Test Item Value Reference Range Interpretation Comme nts CHOLESTEROL (test code = 2210) 267 MG/DL TRIGLYCERIDES (test code = 2232) 137 MG/DL HDL CHOLESTEROL (test code = 2220) 48 MG/DL CALC LDL CHOL (test code = 2237) 192 MG/DL RISK RATIO LDL/HDL (test cod e = 2238) 4.00 RATIO Cristian StollCOMPREHENSIVE METABOLIC [id number] 00:00:00* Test Item Value Reference Range Interpretation Comme nts GLUCOSE (test code = 2217) 155 MG/DL BUN (test code = 2208) 14 MG/DL CREATININE (test code = 2214) 0.52 MG/DL eGFR AMER. (test cod e = 02311) 122 ML/MIN/1.73 eGFR NON- AMER. (test code = 26263) 105 ML/MIN/1.73 CALC BUN/CREAT (test code = 2235) 27 RATIO SODIUM (test code = 2231) 142 MEQ/L POTASSIUM (test code = 2228) 4.4 MEQ/L CHLORIDE (test code = 2215) 104 MEQ/L CARBON DIOXIDE (test code = 2206) 25 MEQ/L CALCIUM (test code = 2209) 9.2 MG/DL PROTEIN, TOTAL (test code = 2229) 7.1 G/DL ALBUMIN (test code = 2201) 4.5 G/DL CALC GLOBULIN (test code = 2240) 2.6 G/DL CALC A/G RATIO (test code = 2234) 1.7 RATIO BILIRUBIN, TOTAL (test code = 2207) <0.2 MG/DL ALKALINE PHOSPHATASE (test code = 2204) 115 U/L AST (test code = 2218) 17 U/L ALT (test code = 2219) 27 U/L Cristian StollTHYROID II PROFILE (T3U, T4, T7, TSH)2019 00:00:00* Test Item Value Reference Range Interpretation Comme nts T-UPTAKE (test code = 2817) 33.1 % THYROX. BIND. CAPAC. (test c ode = 91881) 1.0 T4 (THYROXINE) (test code = 2819) 4.7 UG/DL CORRECTED T4 (FTI) (test cod e = 2820) 4.7 UG/DL TSH, THIRD GENERATION (test code = 2821) 0.201 UIU/ML Cristian StollHEMOGLOBIN [id number] 00:00:00* Test Item Value Reference Range Interpretation Comme nts HEMOGLOBIN A1c (test code = 61010) 6.7 % Cristian StollLIPID [id number] 00:00:00* Test Item Value Reference Range Interpretation Comme nts CHOLESTEROL (test code = 2210) 267 MG/DL TRIGLYCERIDES (test code = 2232) 137 MG/DL HDL CHOLESTEROL (test code = 2220) 48 MG/DL CALC LDL CHOL (test code = 2237) 192 MG/DL RISK RATIO LDL/HDL (test cod e = 2238) 4.00 RATIO Cristian StollCOMPREHENSIVE METABOLIC [id number] 00:00:00* Test Item Value Reference Range Interpretation Comme nts GLUCOSE (test code = 2217) 155 MG/DL BUN (test code = 2208) 14 MG/DL CREATININE (test code = 2214) 0.52 MG/DL eGFR AMER. (test cod e = 43286) 122 ML/MIN/1.73 eGFR NON- AMER. (test code = 02557) 105 ML/MIN/1.73 CALC BUN/CREAT (test code = 2235) 27 RATIO SODIUM (test code = 2231) 142 MEQ/L POTASSIUM (test code = 2228) 4.4 MEQ/L CHLORIDE (test code = 2215) 104 MEQ/L CARBON DIOXIDE (test code = 2206) 25 MEQ/L CALCIUM (test code = 2209) 9.2 MG/DL PROTEIN, TOTAL (test code = 2229) 7.1 G/DL ALBUMIN (test code = 2201) 4.5 G/DL CALC GLOBULIN (test code = 2240) 2.6 G/DL CALC A/G RATIO (test code = 2234) 1.7 RATIO BILIRUBIN, TOTAL (test code = 2207) <0.2 MG/DL ALKALINE PHOSPHATASE (test code = 2204) 115 U/L AST (test code = 2218) 17 U/L ALT (test code = 2219) 27 U/L Cristian StollTHYROID II PROFILE (T3U, T4, T7, TSH)2019 00:00:00* Test Item Value Reference Range Interpretation Comme nts T-UPTAKE (test code = 2817) 33.1 % THYROX. BIND. CAPAC. (test c ode = 84486) 1.0 T4 (THYROXINE) (test code = 2819) 4.7 UG/DL CORRECTED T4 (FTI) (test cod e = 2820) 4.7 UG/DL TSH, THIRD GENERATION (test code = 2821) 0.201 UIU/ML Cristian StollHEMOGLOBIN [id number] 00:00:00* Test Item Value Reference Range Interpretation Comme nts HEMOGLOBIN A1c (test code = 39511) 6.7 % Cristian StollLIPID [id number] 00:00:00* Test Item Value Reference Range Interpretation Comme nts CHOLESTEROL (test code = 2210) 267 MG/DL TRIGLYCERIDES (test code = 2232) 137 MG/DL HDL CHOLESTEROL (test code = 2220) 48 MG/DL CALC LDL CHOL (test code = 2237) 192 MG/DL RISK RATIO LDL/HDL (test cod e = 2238) 4.00 RATIO Cristian StollHEMOGLOBIN [id number] 00:00:00* Test Item Value Reference Range Interpretation Comme nts HEMOGLOBIN A1c (test code = 52544) 6.7 % Cristian StollCOMPREHENSIVE METABOLIC [id number] 00:00:00* Test Item Value Reference Range Interpretation Comme nts GLUCOSE (test code = 2217) 155 MG/DL BUN (test code = 2208) 14 MG/DL CREATININE (test code = 2214) 0.52 MG/DL eGFR AMER. (test cod e = 01550) 122 ML/MIN/1.73 eGFR NON- AMER. (test code = 69314) 105 ML/MIN/1.73 CALC BUN/CREAT (test code = 2235) 27 RATIO SODIUM (test code = 2231) 142 MEQ/L POTASSIUM (test code = 2228) 4.4 MEQ/L CHLORIDE (test code = 2215) 104 MEQ/L CARBON DIOXIDE (test code = 2206) 25 MEQ/L CALCIUM (test code = 2209) 9.2 MG/DL PROTEIN, TOTAL (test code = 2229) 7.1 G/DL ALBUMIN (test code = 2201) 4.5 G/DL CALC GLOBULIN (test code = 2240) 2.6 G/DL CALC A/G RATIO (test code = 2234) 1.7 RATIO BILIRUBIN, TOTAL (test code = 2207) <0.2 MG/DL ALKALINE PHOSPHATASE (test code = 2204) 115 U/L AST (test code = 2218) 17 U/L ALT (test code = 2219) 27 U/L Cristian StollTHYROID II PROFILE (T3U, T4, T7, TSH)2019 00:00:00* Test Item Value Reference Range Interpretation Comme nts T-UPTAKE (test code = 2817) 33.1 % THYROX. BIND. CAPAC. (test c ode = 25062) 1.0 T4 (THYROXINE) (test code = 2819) 4.7 UG/DL CORRECTED T4 (FTI) (test cod e = 2820) 4.7 UG/DL TSH, THIRD GENERATION (test code = 2821) 0.201 UIU/ML Cristian StollHEMOGLOBIN [id number] 00:00:00* Test Item Value Reference Range Interpretation Comme nts HEMOGLOBIN A1c (test code = 54510) 6.7 % SARS-CoV-2 (COVID-19) by RT-PCR (HIGH RISK)2019-09-18 00:00:00* Test Item Value Reference Range Interpretation Comme nts SARS-CoV-2 INTERPRETATION (t est code = 80359) NEGATIVE SOURCE (test code = 17780) NOT SPECIFIED SARS-CoV-2 (COVID-19) by RT-PCR (HIGH RISK)2019-09-18 00:00:00* Test Item Value Reference Range Interpretation Comme nts SARS-CoV-2 INTERPRETATION (t est code = 06032) NEGATIVE SOURCE (test code = 13928) NOT SPECIFIED Cristian StollSARS-CoV-2 (COVID-19) by RT-PCR (HIGH RISK)2019-09-18 00:00:00* Test Item Value Reference Range Interpretation Comme nts SARS-CoV-2 INTERPRETATION (t est code = 66363) NEGATIVE SOURCE (test code = 12537) NOT SPECIFIED SARS-CoV-2 (COVID-19) by RT-PCR (HIGH RISK)2019-09-18 00:00:00* Test Item Value Reference Range Interpretation Comme nts SARS-CoV-2 INTERPRETATION (t est code = 86751) NEGATIVE SOURCE (test code = 57214) NOT SPECIFIED SARS-CoV-2 (COVID-19) by RT-PCR (HIGH RISK)2019-09-18 00:00:00* Test Item Value Reference Range Interpretation Comme nts SARS-CoV-2 INTERPRETATION (t est code = 26578) NEGATIVE SOURCE (test code = 57011) NOT SPECIFIED Cristian So ExjblpPJVC-[id number]-7 (COVID-19) by RT-PCR (HIGH RISK)2019-09-18 00:00:00* Test Item Value Reference Range Interpretation Comme nts SARS-CoV-2 INTERPRETATION (t est code = 88185) NEGATIVE SOURCE (test code = 68272) NOT SPECIFIED Cristian F SpxzopFZLX-SaF-1 (COVID-19) by RT-PCR (HIGH RISK)2019-09-18 00:00:00* Test Item Value Reference Range Interpretation Comme nts SARS-CoV-2 INTERPRETATION (t est code = 27638) NEGATIVE SOURCE (test code = 74180) NOT SPECIFIED Cristian F PpfobyQXUW-SmG-0 (COVID-19) by RT-PCR (HIGH RISK)2019-09-18 00:00:00* Test Item Value Reference Range Interpretation Comme nts SARS-CoV-2 INTERPRETATION (t est code = 24378) NEGATIVE SOURCE (test code = 29760) NOT SPECIFIED Cristian F FjvyjuDAXK-NwF-7 (COVID-19) by RT-PCR (HIGH RISK)2019-09-18 00:00:00* Test Item Value Reference Range Interpretation Comme nts SARS-CoV-2 INTERPRETATION (t est code = 11456) NEGATIVE SOURCE (test code = 39191) NOT SPECIFIED Cristian F EgnntgKWUY-FsH-9 (COVID-19) by RT-PCR (HIGH RISK)2019-09-18 00:00:00* Test Item Value Reference Range Interpretation Comme nts SARS-CoV-2 INTERPRETATION (t est code = 58204) NEGATIVE SOURCE (test code = 08010) NOT SPECIFIED Cristian F MwmehrDRPX-OsY-9 (COVID-19) by RT-PCR (HIGH RISK)2019-09-18 00:00:00* Test Item Value Reference Range Interpretation Comme nts SARS-CoV-2 INTERPRETATION (t est code = 40980) NEGATIVE SOURCE (test code = 38367) NOT SPECIFIED Cristian StollSARS-CoV-2 (COVID-19) by RT-PCR (HIGH RISK)2019-09-18 00:00:00* Test Item Value Reference Range Interpretation Comme nts SARS-CoV-2 INTERPRETATION (t est code = 60406) NEGATIVE SOURCE (test code = 81231) NOT SPECIFIED Cristian StollSARS-CoV-2 (COVID-19) by RT-PCR (HIGH RISK)2019-09-18 00:00:00* Test Item Value Reference Range Interpretation Comme nts SARS-CoV-2 INTERPRETATION (t est code = 07359) NEGATIVE SOURCE (test code = 48982) NOT SPECIFIED HEMOGLOBIN [id number] 00:00:00* Test Item Value Reference Range Interpretation Comme nts HEMOGLOBIN A1c (test code = 30842) 6.4 % COMPREHENSIVE METABOLIC [id number] 00:00:00* Test Item Value Reference Range Interpretation Comme nts GLUCOSE (test code = 2217) 206 MG/DL BUN (test code = 2208) 23 MG/DL CREATININE (test code = 2214) 0.67 MG/DL eGFR AMER. (test cod e = 01945) 112 ML/MIN/1.73 eGFR NON- AMER. (test code = 19758) 97 ML/MIN/1.73 CALC BUN/CREAT (test code = 2235) 34 RATIO SODIUM (test code = 2231) 142 MEQ/L POTASSIUM (test code = 2228) 4.1 MEQ/L CHLORIDE (test code = 2215) 99 MEQ/L CARBON DIOXIDE (test code = 2206) 28 MEQ/L CALCIUM (test code = 2209) 8.8 MG/DL PROTEIN, TOTAL (test code = 2229) 6.8 G/DL ALBUMIN (test code = 2201) 4.6 G/DL CALC GLOBULIN (test code = 2240) 2.2 G/DL CALC A/G RATIO (test code = 2234) 2.1 RATIO BILIRUBIN, TOTAL (test code = 2207) <0.2 MG/DL ALKALINE PHOSPHATASE (test code = 2204) 105 U/L AST (test code = 2218) 17 U/L ALT (test code = 2219) 25 U/L [id number] 00:00:00* Test Item Value Reference Range Interpretation Comme nts TSH, THIRD GENERATION (test code = 2821) 2.490 UIU/ML HEMOGLOBIN [id number] 00:00:00* Test Item Value Reference Range Interpretation Comme nts HEMOGLOBIN A1c (test code = 00427) 6.4 % COMPREHENSIVE METABOLIC [id number] 00:00:00* Test Item Value Reference Range Interpretation Comme nts GLUCOSE (test code = 2217) 206 MG/DL BUN (test code = 2208) 23 MG/DL CREATININE (test code = 2214) 0.67 MG/DL eGFR AMER. (test cod e = 20318) 112 ML/MIN/1.73 eGFR NON- AMER. (test code = 62619) 97 ML/MIN/1.73 CALC BUN/CREAT (test code = 2235) 34 RATIO SODIUM (test code = 2231) 142 MEQ/L POTASSIUM (test code = 2228) 4.1 MEQ/L CHLORIDE (test code = 2215) 99 MEQ/L CARBON DIOXIDE (test code = 2206) 28 MEQ/L CALCIUM (test code = 2209) 8.8 MG/DL PROTEIN, TOTAL (test code = 2229) 6.8 G/DL ALBUMIN (test code = 2201) 4.6 G/DL CALC GLOBULIN (test code = 2240) 2.2 G/DL CALC A/G RATIO (test code = 2234) 2.1 RATIO BILIRUBIN, TOTAL (test code = 2207) <0.2 MG/DL ALKALINE PHOSPHATASE (test code = 2204) 105 U/L AST (test code = 2218) 17 U/L ALT (test code = 2219) 25 U/L [id number] 00:00:00* Test Item Value Reference Range Interpretation Comme nts TSH, THIRD GENERATION (test code = 2821) 2.490 UIU/ML HEMOGLOBIN [id number] 00:00:00* Test Item Value Reference Range Interpretation Comme nts HEMOGLOBIN A1c (test code = 77751) 6.4 % COMPREHENSIVE METABOLIC [id number] 00:00:00* Test Item Value Reference Range Interpretation Comme nts GLUCOSE (test code = 2217) 206 MG/DL BUN (test code = 2208) 23 MG/DL CREATININE (test code = 2214) 0.67 MG/DL eGFR AMER. (test cod e = 44749) 112 ML/MIN/1.73 eGFR NON- AMER. (test code = 02612) 97 ML/MIN/1.73 CALC BUN/CREAT (test code = 2235) 34 RATIO SODIUM (test code = 2231) 142 MEQ/L POTASSIUM (test code = 2228) 4.1 MEQ/L CHLORIDE (test code = 2215) 99 MEQ/L CARBON DIOXIDE (test code = 2206) 28 MEQ/L CALCIUM (test code = 2209) 8.8 MG/DL PROTEIN, TOTAL (test code = 2229) 6.8 G/DL ALBUMIN (test code = 2201) 4.6 G/DL CALC GLOBULIN (test code = 2240) 2.2 G/DL CALC A/G RATIO (test code = 2234) 2.1 RATIO BILIRUBIN, TOTAL (test code = 2207) <0.2 MG/DL ALKALINE PHOSPHATASE (test code = 2204) 105 U/L AST (test code = 2218) 17 U/L ALT (test code = 2219) 25 U/L HEMOGLOBIN [id number] 00:00:00* Test Item Value Reference Range Interpretation Comme nts HEMOGLOBIN A1c (test code = 70897) 6.4 % Cristian [id number] 00:00:00* Test Item Value Reference Range Interpretation Comme nts TSH, THIRD GENERATION (test code = 2821) 2.490 UIU/ML HEMOGLOBIN [id number] 00:00:00* Test Item Value Reference Range Interpretation Comme nts HEMOGLOBIN A1c (test code = 81545) 6.4 % COMPREHENSIVE METABOLIC [id number] 00:00:00* Test Item Value Reference Range Interpretation Comme nts GLUCOSE (test code = 2217) 206 MG/DL BUN (test code = 2208) 23 MG/DL CREATININE (test code = 2214) 0.67 MG/DL eGFR AMER. (test cod e = 80565) 112 ML/MIN/1.73 eGFR NON- AMER. (test code = 71880) 97 ML/MIN/1.73 CALC BUN/CREAT (test code = 2235) 34 RATIO SODIUM (test code = 2231) 142 MEQ/L POTASSIUM (test code = 2228) 4.1 MEQ/L CHLORIDE (test code = 2215) 99 MEQ/L CARBON DIOXIDE (test code = 2206) 28 MEQ/L CALCIUM (test code = 2209) 8.8 MG/DL PROTEIN, TOTAL (test code = 2229) 6.8 G/DL ALBUMIN (test code = 2201) 4.6 G/DL CALC GLOBULIN (test code = 2240) 2.2 G/DL CALC A/G RATIO (test code = 2234) 2.1 RATIO BILIRUBIN, TOTAL (test code = 2207) <0.2 MG/DL ALKALINE PHOSPHATASE (test code = 2204) 105 U/L AST (test code = 2218) 17 U/L ALT (test code = 2219) 25 U/L COMPREHENSIVE METABOLIC [id number] 00:00:00* Test Item Value Reference Range Interpretation Comme nts GLUCOSE (test code = 2217) 206 MG/DL BUN (test code = 2208) 23 MG/DL CREATININE (test code = 2214) 0.67 MG/DL eGFR AMER. (test cod e = 50922) 112 ML/MIN/1.73 eGFR NON- AMER. (test code = 96033) 97 ML/MIN/1.73 CALC BUN/CREAT (test code = 2235) 34 RATIO SODIUM (test code = 2231) 142 MEQ/L POTASSIUM (test code = 2228) 4.1 MEQ/L CHLORIDE (test code = 2215) 99 MEQ/L CARBON DIOXIDE (test code = 2206) 28 MEQ/L CALCIUM (test code = 2209) 8.8 MG/DL PROTEIN, TOTAL (test code = 2229) 6.8 G/DL ALBUMIN (test code = 2201) 4.6 G/DL CALC GLOBULIN (test code = 2240) 2.2 G/DL CALC A/G RATIO (test code = 2234) 2.1 RATIO BILIRUBIN, TOTAL (test code = 2207) <0.2 MG/DL ALKALINE PHOSPHATASE (test code = 2204) 105 U/L AST (test code = 2218) 17 U/L ALT (test code = 2219) 25 U/L Cirstian [id number] 00:00:00* Test Item Value Reference Range Interpretation Comme nts TSH, THIRD GENERATION (test code = 2821) 2.490 UIU/ML Cristian [id number] 00:00:00* Test Item Value Reference Range Interpretation Comme chiara TSH, THIRD GENERATION (test code = 2821) 2.490 UIU/ML Cristian So AustinHEMOGLOBIN [id number] 00:00:00* Test Item Value Reference Range Interpretation Comme chiara HEMOGLOBIN A1c (test code = 61477) 6.4 % Cristian StollCOMPREHENSIVE METABOLIC [id number] 00:00:00* Test Item Value Reference Range Interpretation Comme nts GLUCOSE (test code = 2217) 206 MG/DL BUN (test code = 2208) 23 MG/DL CREATININE (test code = 2214) 0.67 MG/DL eGFR AMER. (test cod e = 83963) 112 ML/MIN/1.73 eGFR NON- AMER. (test code = 82611) 97 ML/MIN/1.73 CALC BUN/CREAT (test code = 2235) 34 RATIO SODIUM (test code = 2231) 142 MEQ/L POTASSIUM (test code = 2228) 4.1 MEQ/L CHLORIDE (test code = 2215) 99 MEQ/L CARBON DIOXIDE (test code = 2206) 28 MEQ/L CALCIUM (test code = 2209) 8.8 MG/DL PROTEIN, TOTAL (test code = 2229) 6.8 G/DL ALBUMIN (test code = 2201) 4.6 G/DL CALC GLOBULIN (test code = 2240) 2.2 G/DL CALC A/G RATIO (test code = 2234) 2.1 RATIO BILIRUBIN, TOTAL (test code = 2207) <0.2 MG/DL ALKALINE PHOSPHATASE (test code = 2204) 105 U/L AST (test code = 2218) 17 U/L ALT (test code = 2219) 25 U/L Cristian [id number] 00:00:00* Test Item Value Reference Range Interpretation Comme chiara TSH, THIRD GENERATION (test code = 2821) 2.490 UIU/ML Cristian StollHEMOGLOBIN [id number] 00:00:00* Test Item Value Reference Range Interpretation Comme chiara HEMOGLOBIN A1c (test code = 24324) 6.4 % Cristian StollHEMOGLOBIN [id number] 00:00:00* Test Item Value Reference Range Interpretation Comme nts HEMOGLOBIN A1c (test code = 78393) 6.4 % Cristian So PortlandCOMPREHENSIVE METABOLIC [id number] 00:00:00* Test Item Value Reference Range Interpretation Comme nts GLUCOSE (test code = 2217) 206 MG/DL BUN (test code = 2208) 23 MG/DL CREATININE (test code = 2214) 0.67 MG/DL eGFR AMER. (test cod e = 86505) 112 ML/MIN/1.73 eGFR NON- AMER. (test code = 01147) 97 ML/MIN/1.73 CALC BUN/CREAT (test code = 2235) 34 RATIO SODIUM (test code = 2231) 142 MEQ/L POTASSIUM (test code = 2228) 4.1 MEQ/L CHLORIDE (test code = 2215) 99 MEQ/L CARBON DIOXIDE (test code = 2206) 28 MEQ/L CALCIUM (test code = 2209) 8.8 MG/DL PROTEIN, TOTAL (test code = 2229) 6.8 G/DL ALBUMIN (test code = 2201) 4.6 G/DL CALC GLOBULIN (test code = 2240) 2.2 G/DL CALC A/G RATIO (test code = 2234) 2.1 RATIO BILIRUBIN, TOTAL (test code = 2207) <0.2 MG/DL ALKALINE PHOSPHATASE (test code = 2204) 105 U/L AST (test code = 2218) 17 U/L ALT (test code = 2219) 25 U/L Cristian StollCOMPREHENSIVE METABOLIC [id number] 00:00:00* Test Item Value Reference Range Interpretation Comme nts GLUCOSE (test code = 2217) 206 MG/DL BUN (test code = 2208) 23 MG/DL CREATININE (test code = 2214) 0.67 MG/DL eGFR AMER. (test cod e = 90535) 112 ML/MIN/1.73 eGFR NON- AMER. (test code = 55509) 97 ML/MIN/1.73 CALC BUN/CREAT (test code = 2235) 34 RATIO SODIUM (test code = 2231) 142 MEQ/L POTASSIUM (test code = 2228) 4.1 MEQ/L CHLORIDE (test code = 2215) 99 MEQ/L CARBON DIOXIDE (test code = 2206) 28 MEQ/L CALCIUM (test code = 2209) 8.8 MG/DL PROTEIN, TOTAL (test code = 2229) 6.8 G/DL ALBUMIN (test code = 2201) 4.6 G/DL CALC GLOBULIN (test code = 2240) 2.2 G/DL CALC A/G RATIO (test code = 2234) 2.1 RATIO BILIRUBIN, TOTAL (test code = 2207) <0.2 MG/DL ALKALINE PHOSPHATASE (test code = 2204) 105 U/L AST (test code = 2218) 17 U/L ALT (test code = 2219) 25 U/L Cristian [id number] 00:00:00* Test Item Value Reference Range Interpretation Comme [facility] TSH, THIRD GENERATION (test code = 2821) 2.490 UIU/ML Cristian StollHEMOGLOBIN [id number] 00:00:00* Test Item Value Reference Range Interpretation Comme [facility] HEMOGLOBIN A1c (test code = 33073) 6.4 % Cristian So Portland[place] [id number] 00:00:00* Test Item Value Reference Range Interpretation Comme nts GLUCOSE (test code = 2217) 206 MG/DL BUN (test code = 2208) 23 MG/DL CREATININE (test code = 2214) 0.67 MG/DL eGFR AMER. (test cod e = 35144) 112 ML/MIN/1.73 eGFR NON- AMER. (test code = 66254) 97 ML/MIN/1.73 CALC BUN/CREAT (test code = 2235) 34 RATIO SODIUM (test code = 2231) 142 MEQ/L POTASSIUM (test code = 2228) 4.1 MEQ/L CHLORIDE (test code = 2215) 99 MEQ/L CARBON DIOXIDE (test code = 2206) 28 MEQ/L CALCIUM (test code = 2209) 8.8 MG/DL PROTEIN, TOTAL (test code = 2229) 6.8 G/DL ALBUMIN (test code = 2201) 4.6 G/DL CALC GLOBULIN (test code = 2240) 2.2 G/DL CALC A/G RATIO (test code = 2234) 2.1 RATIO BILIRUBIN, TOTAL (test code = 2207) <0.2 MG/DL ALKALINE PHOSPHATASE (test code = 2204) 105 U/L AST (test code = 2218) 17 U/L ALT (test code = 2219) 25 U/L Cristian [id number] 00:00:00* Test Item Value Reference Range Interpretation Comme [facility] TSH, THIRD GENERATION (test code = 2821) 2.490 UIU/ML Cristian StollHEMOGLOBIN [id number] 00:00:00* Test Item Value Reference Range Interpretation Comme [facility] HEMOGLOBIN A1c (test code = 61363) 6.4 % Cristian So [place] [id number] 00:00:00* Test Item Value Reference Range Interpretation Comme nts GLUCOSE (test code = 2217) 206 MG/DL BUN (test code = 2208) 23 MG/DL CREATININE (test code = 2214) 0.67 MG/DL eGFR AMER. (test cod e = 61493) 112 ML/MIN/1.73 eGFR NON- AMER. (test code = 46692) 97 ML/MIN/1.73 CALC BUN/CREAT (test code = 2235) 34 RATIO SODIUM (test code = 2231) 142 MEQ/L POTASSIUM (test code = 2228) 4.1 MEQ/L CHLORIDE (test code = 2215) 99 MEQ/L CARBON DIOXIDE (test code = 2206) 28 MEQ/L CALCIUM (test code = 2209) 8.8 MG/DL PROTEIN, TOTAL (test code = 2229) 6.8 G/DL ALBUMIN (test code = 2201) 4.6 G/DL CALC GLOBULIN (test code = 2240) 2.2 G/DL CALC A/G RATIO (test code = 2234) 2.1 RATIO BILIRUBIN, TOTAL (test code = 2207) <0.2 MG/DL ALKALINE PHOSPHATASE (test code = 2204) 105 U/L AST (test code = 2218) 17 U/L ALT (test code = 2219) 25 U/L Cristian So [id number] 00:00:00* Test Item Value Reference Range Interpretation Comme [facility] TSH, THIRD GENERATION (test code = 2821) 2.490 UIU/ML Cristian StollHEMOGLOBIN [id number] 00:00:00* Test Item Value Reference Range Interpretation Comme nts HEMOGLOBIN A1c (test code = 18770) 6.4 % Cristian StollCOMPREHENSIVE METABOLIC [id number] 00:00:00* Test Item Value Reference Range Interpretation Comme nts GLUCOSE (test code = 2217) 206 MG/DL BUN (test code = 2208) 23 MG/DL CREATININE (test code = 2214) 0.67 MG/DL eGFR AMER. (test cod e = 87817) 112 ML/MIN/1.73 eGFR NON- AMER. (test code = 86256) 97 ML/MIN/1.73 CALC BUN/CREAT (test code = 2235) 34 RATIO SODIUM (test code = 2231) 142 MEQ/L POTASSIUM (test code = 2228) 4.1 MEQ/L CHLORIDE (test code = 2215) 99 MEQ/L CARBON DIOXIDE (test code = 2206) 28 MEQ/L CALCIUM (test code = 2209) 8.8 MG/DL PROTEIN, TOTAL (test code = 2229) 6.8 G/DL ALBUMIN (test code = 2201) 4.6 G/DL CALC GLOBULIN (test code = 2240) 2.2 G/DL CALC A/G RATIO (test code = 2234) 2.1 RATIO BILIRUBIN, TOTAL (test code = 2207) <0.2 MG/DL ALKALINE PHOSPHATASE (test code = 2204) 105 U/L AST (test code = 2218) 17 U/L ALT (test code = 2219) 25 U/L Cristian [id number] 00:00:00* Test Item Value Reference Range Interpretation Comme [facility] TSH, THIRD GENERATION (test code = 2821) 2.490 UIU/ML Cristian StollHEMOGLOBIN [id number] 00:00:00* Test Item Value Reference Range Interpretation Comme [facility] HEMOGLOBIN A1c (test code = 75550) 6.4 % Cristian StollCOMPREHENSIVE METABOLIC [id number] 00:00:00* Test Item Value Reference Range Interpretation Comme nts GLUCOSE (test code = 2217) 206 MG/DL BUN (test code = 2208) 23 MG/DL CREATININE (test code = 2214) 0.67 MG/DL eGFR AMER. (test cod e = 07301) 112 ML/MIN/1.73 eGFR NON- AMER. (test code = 53718) 97 ML/MIN/1.73 CALC BUN/CREAT (test code = 2235) 34 RATIO SODIUM (test code = 2231) 142 MEQ/L POTASSIUM (test code = 2228) 4.1 MEQ/L CHLORIDE (test code = 2215) 99 MEQ/L CARBON DIOXIDE (test code = 2206) 28 MEQ/L CALCIUM (test code = 2209) 8.8 MG/DL PROTEIN, TOTAL (test code = 2229) 6.8 G/DL ALBUMIN (test code = 2201) 4.6 G/DL CALC GLOBULIN (test code = 2240) 2.2 G/DL CALC A/G RATIO (test code = 2234) 2.1 RATIO BILIRUBIN, TOTAL (test code = 2207) <0.2 MG/DL ALKALINE PHOSPHATASE (test code = 2204) 105 U/L AST (test code = 2218) 17 U/L ALT (test code = 2219) 25 U/L Cristian [id number] 00:00:00* Test Item Value Reference Range Interpretation Comme [facility] TSH, THIRD GENERATION (test code = 2821) 2.490 UIU/ML Cristian So PortlandHEMOGLOBIN [id number] 00:00:00* Test Item Value Reference Range Interpretation Comme [facility] HEMOGLOBIN A1c (test code = 15870) 6.4 % Cristian StollCOMPREHENSIVE METABOLIC [id number] 00:00:00* Test Item Value Reference Range Interpretation Comme [facility] GLUCOSE (test code = 2217) 206 MG/DL BUN (test code = 2208) 23 MG/DL CREATININE (test code = 2214) 0.67 MG/DL eGFR AMER. (test cod e = 48330) 112 ML/MIN/1.73 eGFR NON- AMER. (test code = 83290) 97 ML/MIN/1.73 CALC BUN/CREAT (test code = 2235) 34 RATIO SODIUM (test code = 2231) 142 MEQ/L POTASSIUM (test code = 2228) 4.1 MEQ/L CHLORIDE (test code = 2215) 99 MEQ/L CARBON DIOXIDE (test code = 2206) 28 MEQ/L CALCIUM (test code = 2209) 8.8 MG/DL PROTEIN, TOTAL (test code = 2229) 6.8 G/DL ALBUMIN (test code = 2201) 4.6 G/DL CALC GLOBULIN (test code = 2240) 2.2 G/DL CALC A/G RATIO (test code = 2234) 2.1 RATIO BILIRUBIN, TOTAL (test code = 2207) <0.2 MG/DL ALKALINE PHOSPHATASE (test code = 2204) 105 U/L AST (test code = 2218) 17 U/L ALT (test code = 2219) 25 U/L Cristian So [id number] 00:00:00* Test Item Value Reference Range Interpretation Comme nts TSH, THIRD GENERATION (test code = 2821) 2.490 UIU/ML Cristian So [id number] 00:00:00* Test Item Value Reference Range Interpretation Comme nts TSH, THIRD GENERATION (test code = 2821) 2.490 UIU/ML VAGINAL PATHOGENS DNA [id number] 00:00:00* Test Item Value Reference Range Interpretation Comme nts MARK SPECIES (test code = ) NEGATIVE G. VAGINALIS (test code = 11943) NEGATIVE T. VAGINALIS (test code = 58346) NEGATIVE VAGINAL PATHOGENS DNA [id number] 00:00:00* Test Item Value Reference Range Interpretation Comme nts MARK SPECIES (test code = 60967) NEGATIVE G. VAGINALIS (test code = 02719) NEGATIVE T. VAGINALIS (test code = 30220) NEGATIVE Cristian StollVAGINAL PATHOGENS DNA [id number] 00:00:00* Test Item Value Reference Range Interpretation Comme nts MARK SPECIES (test code = 76443) NEGATIVE G. VAGINALIS (test code = 43303) NEGATIVE T. VAGINALIS (test code = 96159) NEGATIVE VAGINAL PATHOGENS DNA [id number] 00:00:00* Test Item Value Reference Range Interpretation Comme nts MARK SPECIES (test code = 53397) NEGATIVE G. VAGINALIS (test code = 06966) NEGATIVE T. VAGINALIS (test code = 72844) NEGATIVE VAGINAL PATHOGENS DNA [id number] 00:00:00* Test Item Value Reference Range Interpretation Comme nts MARK SPECIES (test code = 12911) NEGATIVE G. VAGINALIS (test code = 42776) NEGATIVE T. VAGINALIS (test code = 10321) NEGATIVE Cristian F AustinVAGINAL PATHOGENS DNA [id number] 00:00:00* Test Item Value Reference Range Interpretation Comme nts MARK SPECIES (test code = 38228) NEGATIVE G. VAGINALIS (test code = 40919) NEGATIVE T. VAGINALIS (test code = 23477) NEGATIVE Cristian F AustinVAGINAL PATHOGENS DNA [id number] 00:00:00* Test Item Value Reference Range Interpretation Comme nts MARK SPECIES (test code = 47146) NEGATIVE G. VAGINALIS (test code = 52855) NEGATIVE T. VAGINALIS (test code = 18603) NEGATIVE Cristian F AustinVAGINAL PATHOGENS DNA [id number] 00:00:00* Test Item Value Reference Range Interpretation Comme nts MARK SPECIES (test code = 46115) NEGATIVE G. VAGINALIS (test code = 85488) NEGATIVE T. VAGINALIS (test code = 05220) NEGATIVE Cristian F AustinVAGINAL PATHOGENS DNA [id number] 00:00:00* Test Item Value Reference Range Interpretation Comme nts MARK SPECIES (test code = 79007) NEGATIVE G. VAGINALIS (test code = 65533) NEGATIVE T. VAGINALIS (test code = 72390) NEGATIVE Cristian F AustinVAGINAL PATHOGENS DNA [id number] 00:00:00* Test Item Value Reference Range Interpretation Comme nts MARK SPECIES (test code = 52583) NEGATIVE G. VAGINALIS (test code = 95500) NEGATIVE T. VAGINALIS (test code = 81152) NEGATIVE Cristian F AustinVAGINAL PATHOGENS DNA [id number] 00:00:00* Test Item Value Reference Range Interpretation Comme nts MARK SPECIES (test code = 03858) NEGATIVE G. VAGINALIS (test code = 10550) NEGATIVE T. VAGINALIS (test code = 21291) NEGATIVE Cristian F AustinVAGINAL PATHOGENS DNA [id number] 00:00:00* Test Item Value Reference Range Interpretation Comme nts MARK SPECIES (test code = 74408) NEGATIVE G. VAGINALIS (test code = 27843) NEGATIVE T. VAGINALIS (test code = 02993) NEGATIVE Cristian F AustinVAGINAL PATHOGENS DNA [id number] 00:00:00* Test Item Value Reference Range Interpretation Comme nts MARK SPECIES (test code = 72168) NEGATIVE G. VAGINALIS (test code = ) NEGATIVE T. VAGINALIS (test code = 68274) NEGATIVE HEMOGLOBIN A1c [ADDED]2018-12-01 00:00:00* Test Item Value Reference Range Interpretation Comme nts HEMOGLOBIN A1c (test code = 31858) 6.7 % COMPREHENSIVE METABOLIC PANEL [ADDED]2018-12-01 00:00:00* Test Item Value Reference Range Interpretation Comme nts GLUCOSE (test code = 2217) 136 MG/DL BUN (test code = 2208) 15 MG/DL CREATININE (test code = 2214) 0.64 MG/DL eGFR AMER. (test cod e = 11226) 115 ML/MIN/1.73 eGFR NON- AMER. (test code = 15767) 99 ML/MIN/1.73 CALC BUN/CREAT (test code = 2235) 23 RATIO SODIUM (test code = 2231) 142 MEQ/L POTASSIUM (test code = 2228) 4.7 MEQ/L CHLORIDE (test code = 2215) 97 MEQ/L CARBON DIOXIDE (test code = 2206) 30 MEQ/L CALCIUM (test code = 2209) 10.1 MG/DL PROTEIN, TOTAL (test code = 2229) 7.7 G/DL ALBUMIN (test code = 2201) 5.0 G/DL CALC GLOBULIN (test code = 2240) 2.7 G/DL CALC A/G RATIO (test code = 2234) 1.9 RATIO BILIRUBIN, TOTAL (test code = 2207) <0.2 MG/DL ALKALINE PHOSPHATASE (test code = 2204) 111 U/L AST (test code = 2218) 15 U/L ALT (test code = 2219) 25 U/L TSH, THIRD GENERATION [ADDED]2018-12-01 00:00:00* Test Item Value Reference Range Interpretation Comme nts TSH, THIRD GENERATION (test code = 2821) 1.280 UIU/ML HEMOGLOBIN A1c [ADDED]2018-12-01 00:00:00* Test Item Value Reference Range Interpretation Comme nts HEMOGLOBIN A1c (test code = 09436) 6.7 % COMPREHENSIVE METABOLIC PANEL [ADDED]2018-12-01 00:00:00* Test Item Value Reference Range Interpretation Comme nts GLUCOSE (test code = 2217) 136 MG/DL BUN (test code = 2208) 15 MG/DL CREATININE (test code = 2214) 0.64 MG/DL eGFR AMER. (test cod e = 71799) 115 ML/MIN/1.73 eGFR NON- AMER. (test code = 29794) 99 ML/MIN/1.73 CALC BUN/CREAT (test code = 2235) 23 RATIO SODIUM (test code = 2231) 142 MEQ/L POTASSIUM (test code = 2228) 4.7 MEQ/L CHLORIDE (test code = 2215) 97 MEQ/L CARBON DIOXIDE (test code = 2206) 30 MEQ/L CALCIUM (test code = 2209) 10.1 MG/DL PROTEIN, TOTAL (test code = 2229) 7.7 G/DL ALBUMIN (test code = 2201) 5.0 G/DL CALC GLOBULIN (test code = 2240) 2.7 G/DL CALC A/G RATIO (test code = 2234) 1.9 RATIO BILIRUBIN, TOTAL (test code = 2207) <0.2 MG/DL ALKALINE PHOSPHATASE (test code = 2204) 111 U/L AST (test code = 2218) 15 U/L ALT (test code = 2219) 25 U/L TSH, THIRD GENERATION [ADDED]2018-12-01 00:00:00* Test Item Value Reference Range Interpretation Comme nts TSH, THIRD GENERATION (test code = 2821) 1.280 UIU/ML HEMOGLOBIN A1c [ADDED]2018-12-01 00:00:00* Test Item Value Reference Range Interpretation Comme nts HEMOGLOBIN A1c (test code = 71536) 6.7 % Cristian F AustinHEMOGLOBIN A1c [ADDED]2018-12-01 00:00:00* Test Item Value Reference Range Interpretation Comme nts HEMOGLOBIN A1c (test code = 50064) 6.7 % COMPREHENSIVE METABOLIC PANEL [ADDED]2018-12-01 00:00:00* Test Item Value Reference Range Interpretation Comme nts GLUCOSE (test code = 2217) 136 MG/DL BUN (test code = 2208) 15 MG/DL CREATININE (test code = 2214) 0.64 MG/DL eGFR AMER. (test cod e = 05907) 115 ML/MIN/1.73 eGFR NON- AMER. (test code = 99671) 99 ML/MIN/1.73 CALC BUN/CREAT (test code = 2235) 23 RATIO SODIUM (test code = 2231) 142 MEQ/L POTASSIUM (test code = 2228) 4.7 MEQ/L CHLORIDE (test code = 2215) 97 MEQ/L CARBON DIOXIDE (test code = 2206) 30 MEQ/L CALCIUM (test code = 2209) 10.1 MG/DL PROTEIN, TOTAL (test code = 2229) 7.7 G/DL ALBUMIN (test code = 2201) 5.0 G/DL CALC GLOBULIN (test code = 2240) 2.7 G/DL CALC A/G RATIO (test code = 2234) 1.9 RATIO BILIRUBIN, TOTAL (test code = 2207) <0.2 MG/DL ALKALINE PHOSPHATASE (test code = 2204) 111 U/L AST (test code = 2218) 15 U/L ALT (test code = 2219) 25 U/L TSH, THIRD GENERATION [ADDED]2018-12-01 00:00:00* Test Item Value Reference Range Interpretation Comme nts TSH, THIRD GENERATION (test code = 2821) 1.280 UIU/ML COMPREHENSIVE METABOLIC PANEL [ADDED]2018-12-01 00:00:00* Test Item Value Reference Range Interpretation Comme nts GLUCOSE (test code = 2217) 136 MG/DL BUN (test code = 2208) 15 MG/DL CREATININE (test code = 2214) 0.64 MG/DL eGFR AMER. (test cod e = 09399) 115 ML/MIN/1.73 eGFR NON- AMER. (test code = 45661) 99 ML/MIN/1.73 CALC BUN/CREAT (test code = 2235) 23 RATIO SODIUM (test code = 2231) 142 MEQ/L POTASSIUM (test code = 2228) 4.7 MEQ/L CHLORIDE (test code = 2215) 97 MEQ/L CARBON DIOXIDE (test code = 2206) 30 MEQ/L CALCIUM (test code = 2209) 10.1 MG/DL PROTEIN, TOTAL (test code = 2229) 7.7 G/DL ALBUMIN (test code = 2201) 5.0 G/DL CALC GLOBULIN (test code = 2240) 2.7 G/DL CALC A/G RATIO (test code = 2234) 1.9 RATIO BILIRUBIN, TOTAL (test code = 2207) <0.2 MG/DL ALKALINE PHOSPHATASE (test code = 2204) 111 U/L AST (test code = 2218) 15 U/L ALT (test code = 2219) 25 U/L Cristian So JermanHEMOGLOBIN A1c [ADDED]2018-12-01 00:00:00* Test Item Value Reference Range Interpretation Comme nts HEMOGLOBIN A1c (test code = 57412) 6.7 % COMPREHENSIVE METABOLIC PANEL [ADDED]2018-12-01 00:00:00* Test Item Value Reference Range Interpretation Comme nts GLUCOSE (test code = 2217) 136 MG/DL BUN (test code = 2208) 15 MG/DL CREATININE (test code = 2214) 0.64 MG/DL eGFR AMER. (test cod e = 57186) 115 ML/MIN/1.73 eGFR NON- AMER. (test code = 21326) 99 ML/MIN/1.73 CALC BUN/CREAT (test code = 2235) 23 RATIO SODIUM (test code = 2231) 142 MEQ/L POTASSIUM (test code = 2228) 4.7 MEQ/L CHLORIDE (test code = 2215) 97 MEQ/L CARBON DIOXIDE (test code = 2206) 30 MEQ/L CALCIUM (test code = 2209) 10.1 MG/DL PROTEIN, TOTAL (test code = 2229) 7.7 G/DL ALBUMIN (test code = 2201) 5.0 G/DL CALC GLOBULIN (test code = 2240) 2.7 G/DL CALC A/G RATIO (test code = 2234) 1.9 RATIO BILIRUBIN, TOTAL (test code = 2207) <0.2 MG/DL ALKALINE PHOSPHATASE (test code = 2204) 111 U/L AST (test code = 2218) 15 U/L ALT (test code = 2219) 25 U/L TSH, THIRD GENERATION [ADDED]2018-12-01 00:00:00* Test Item Value Reference Range Interpretation Comme nts TSH, THIRD GENERATION (test code = 2821) 1.280 UIU/ML Cristian GarvinH, THIRD GENERATION [ADDED]2018-12-01 00:00:00* Test Item Value Reference Range Interpretation Comme nts TSH, THIRD GENERATION (test code = 2821) 1.280 UIU/ML HEMOGLOBIN A1c [ADDED]2018-12-01 00:00:00* Test Item Value Reference Range Interpretation Comme nts HEMOGLOBIN A1c (test code = 39546) 6.7 % Cristian StollCOMPREHENSIVE METABOLIC PANEL [ADDED]2018-12-01 00:00:00* Test Item Value Reference Range Interpretation Comme nts GLUCOSE (test code = 2217) 136 MG/DL BUN (test code = 2208) 15 MG/DL CREATININE (test code = 2214) 0.64 MG/DL eGFR AMER. (test cod e = 18905) 115 ML/MIN/1.73 eGFR NON- AMER. (test code = 73238) 99 ML/MIN/1.73 CALC BUN/CREAT (test code = 2235) 23 RATIO SODIUM (test code = 2231) 142 MEQ/L POTASSIUM (test code = 2228) 4.7 MEQ/L CHLORIDE (test code = 2215) 97 MEQ/L CARBON DIOXIDE (test code = 2206) 30 MEQ/L CALCIUM (test code = 2209) 10.1 MG/DL PROTEIN, TOTAL (test code = 2229) 7.7 G/DL ALBUMIN (test code = 2201) 5.0 G/DL CALC GLOBULIN (test code = 2240) 2.7 G/DL CALC A/G RATIO (test code = 2234) 1.9 RATIO BILIRUBIN, TOTAL (test code = 2207) <0.2 MG/DL ALKALINE PHOSPHATASE (test code = 2204) 111 U/L AST (test code = 2218) 15 U/L ALT (test code = 2219) 25 U/L Cristian StollTSH, THIRD GENERATION [ADDED]2018-12-01 00:00:00* Test Item Value Reference Range Interpretation Comme [facility] TSH, THIRD GENERATION (test code = 2821) 1.280 UIU/ML Cristian StollHEMOGLOBIN A1c [ADDED]2018-12-01 00:00:00* Test Item Value Reference Range Interpretation Comme nts HEMOGLOBIN A1c (test code = 98185) 6.7 % Cristian StollCOMPREHENSIVE METABOLIC PANEL [ADDED]2018-12-01 00:00:00* Test Item Value Reference Range Interpretation Comme nts GLUCOSE (test code = 2217) 136 MG/DL BUN (test code = 2208) 15 MG/DL CREATININE (test code = 2214) 0.64 MG/DL eGFR AMER. (test cod e = 13930) 115 ML/MIN/1.73 eGFR NON- AMER. (test code = 68131) 99 ML/MIN/1.73 CALC BUN/CREAT (test code = 2235) 23 RATIO SODIUM (test code = 2231) 142 MEQ/L POTASSIUM (test code = 2228) 4.7 MEQ/L CHLORIDE (test code = 2215) 97 MEQ/L CARBON DIOXIDE (test code = 2206) 30 MEQ/L CALCIUM (test code = 2209) 10.1 MG/DL PROTEIN, TOTAL (test code = 2229) 7.7 G/DL ALBUMIN (test code = 2201) 5.0 G/DL CALC GLOBULIN (test code = 2240) 2.7 G/DL CALC A/G RATIO (test code = 2234) 1.9 RATIO BILIRUBIN, TOTAL (test code = 2207) <0.2 MG/DL ALKALINE PHOSPHATASE (test code = 2204) 111 U/L AST (test code = 2218) 15 U/L ALT (test code = 2219) 25 U/L Cristian StollH, THIRD GENERATION [ADDED]2018-12-01 00:00:00* Test Item Value Reference Range Interpretation Comme nts TSH, THIRD GENERATION (test code = 2821) 1.280 UIU/ML Cristian StollCOMPREHENSIVE METABOLIC PANEL [ADDED]2018-12-01 00:00:00* Test Item Value Reference Range Interpretation Comme nts GLUCOSE (test code = 2217) 136 MG/DL BUN (test code = 2208) 15 MG/DL CREATININE (test code = 2214) 0.64 MG/DL eGFR AMER. (test cod e = 04148) 115 ML/MIN/1.73 eGFR NON- AMER. (test code = 60668) 99 ML/MIN/1.73 CALC BUN/CREAT (test code = 2235) 23 RATIO SODIUM (test code = 2231) 142 MEQ/L POTASSIUM (test code = 2228) 4.7 MEQ/L CHLORIDE (test code = 2215) 97 MEQ/L CARBON DIOXIDE (test code = 2206) 30 MEQ/L CALCIUM (test code = 2209) 10.1 MG/DL PROTEIN, TOTAL (test code = 2229) 7.7 G/DL ALBUMIN (test code = 2201) 5.0 G/DL CALC GLOBULIN (test code = 2240) 2.7 G/DL CALC A/G RATIO (test code = 2234) 1.9 RATIO BILIRUBIN, TOTAL (test code = 2207) <0.2 MG/DL ALKALINE PHOSPHATASE (test code = 2204) 111 U/L AST (test code = 2218) 15 U/L ALT (test code = 2219) 25 U/L Cristian GarvinH, THIRD GENERATION [ADDED]2018-12-01 00:00:00* Test Item Value Reference Range Interpretation Comme [facility] TSH, THIRD GENERATION (test code = 2821) 1.280 UIU/ML Cristian StollHEMOGLOBIN A1c [ADDED]2018-12-01 00:00:00* Test Item Value Reference Range Interpretation Comme [facility] HEMOGLOBIN A1c (test code = 62494) 6.7 % Cristian StollCOMPREHENSIVE METABOLIC PANEL [ADDED]2018-12-01 00:00:00* Test Item Value Reference Range Interpretation Comme nts GLUCOSE (test code = 2217) 136 MG/DL BUN (test code = 2208) 15 MG/DL CREATININE (test code = 2214) 0.64 MG/DL eGFR AMER. (test cod e = 55027) 115 ML/MIN/1.73 eGFR NON- AMER. (test code = 55026) 99 ML/MIN/1.73 CALC BUN/CREAT (test code = 2235) 23 RATIO SODIUM (test code = 2231) 142 MEQ/L POTASSIUM (test code = 2228) 4.7 MEQ/L CHLORIDE (test code = 2215) 97 MEQ/L CARBON DIOXIDE (test code = 2206) 30 MEQ/L CALCIUM (test code = 2209) 10.1 MG/DL PROTEIN, TOTAL (test code = 2229) 7.7 G/DL ALBUMIN (test code = 2201) 5.0 G/DL CALC GLOBULIN (test code = 2240) 2.7 G/DL CALC A/G RATIO (test code = 2234) 1.9 RATIO BILIRUBIN, TOTAL (test code = 2207) <0.2 MG/DL ALKALINE PHOSPHATASE (test code = 2204) 111 U/L AST (test code = 2218) 15 U/L ALT (test code = 2219) 25 U/L Cristian GarvinH, THIRD GENERATION [ADDED]2018-12-01 00:00:00* Test Item Value Reference Range Interpretation Comme nts TSH, THIRD GENERATION (test code = 2821) 1.280 UIU/ML Cristian StollHEMOGLOBIN A1c [ADDED]2018-12-01 00:00:00* Test Item Value Reference Range Interpretation Comme nts HEMOGLOBIN A1c (test code = 39765) 6.7 % Cristian StollCOMPREHENSIVE METABOLIC PANEL [ADDED]2018-12-01 00:00:00* Test Item Value Reference Range Interpretation Comme nts GLUCOSE (test code = 2217) 136 MG/DL BUN (test code = 2208) 15 MG/DL CREATININE (test code = 2214) 0.64 MG/DL eGFR AMER. (test cod e = 14322) 115 ML/MIN/1.73 eGFR NON- AMER. (test code = 83331) 99 ML/MIN/1.73 CALC BUN/CREAT (test code = 2235) 23 RATIO SODIUM (test code = 2231) 142 MEQ/L POTASSIUM (test code = 2228) 4.7 MEQ/L CHLORIDE (test code = 2215) 97 MEQ/L CARBON DIOXIDE (test code = 2206) 30 MEQ/L CALCIUM (test code = 2209) 10.1 MG/DL PROTEIN, TOTAL (test code = 2229) 7.7 G/DL ALBUMIN (test code = 2201) 5.0 G/DL CALC GLOBULIN (test code = 2240) 2.7 G/DL CALC A/G RATIO (test code = 2234) 1.9 RATIO BILIRUBIN, TOTAL (test code = 2207) <0.2 MG/DL ALKALINE PHOSPHATASE (test code = 2204) 111 U/L AST (test code = 2218) 15 U/L ALT (test code = 2219) 25 U/L Cristian StollTSH, THIRD GENERATION [ADDED]2018-12-01 00:00:00* Test Item Value Reference Range Interpretation Comme nts TSH, THIRD GENERATION (test code = 2821) 1.280 UIU/ML Cristian StollHEMOGLOBIN A1c [ADDED]2018-12-01 00:00:00* Test Item Value Reference Range Interpretation Comme nts HEMOGLOBIN A1c (test code = 65341) 6.7 % Cristian StollCOMPREHENSIVE METABOLIC PANEL [ADDED]2018-12-01 00:00:00* Test Item Value Reference Range Interpretation Comme nts GLUCOSE (test code = 2217) 136 MG/DL BUN (test code = 2208) 15 MG/DL CREATININE (test code = 2214) 0.64 MG/DL eGFR AMER. (test cod e = 79758) 115 ML/MIN/1.73 eGFR NON- AMER. (test code = 29856) 99 ML/MIN/1.73 CALC BUN/CREAT (test code = 2235) 23 RATIO SODIUM (test code = 2231) 142 MEQ/L POTASSIUM (test code = 2228) 4.7 MEQ/L CHLORIDE (test code = 2215) 97 MEQ/L CARBON DIOXIDE (test code = 2206) 30 MEQ/L CALCIUM (test code = 2209) 10.1 MG/DL PROTEIN, TOTAL (test code = 222) 7.7 G/DL ALBUMIN (test code = 220) 5.0 G/DL CALC GLOBULIN (test code = 2240) 2.7 G/DL CALC A/G RATIO (test code = 2234) 1.9 RATIO BILIRUBIN, TOTAL (test code = 2206) <0.2 MG/DL ALKALINE PHOSPHATASE (test code = 2203) 111 U/L AST (test code = 2218) 15 U/L ALT (test code = 2219) 25 U/L Cristian StollTSH, THIRD GENERATION [ADDED]2018-12-01 00:00:00* Test Item Value Reference Range Interpretation Comme chiara TSH, THIRD GENERATION (test code = 2821) 1.280 UIU/ML Cristian So JermanHEMOGLOBIN A1c [ADDED]2018-12-01 00:00:00* Test Item Value Reference Range Interpretation Comme nts HEMOGLOBIN A1c (test code = 30760) 6.7 % Cristian So JermanCOMPREHENSIVE METABOLIC PANEL [ADDED]2018-12-01 00:00:00* Test Item Value Reference Range Interpretation Comme nts GLUCOSE (test code = 7) 136 MG/DL BUN (test code = 2208) 15 MG/DL CREATININE (test code = 2214) 0.64 MG/DL eGFR AMER. (test cod e = 12026) 115 ML/MIN/1.73 eGFR NON- AMER. (test code = 08284) 99 ML/MIN/1.73 CALC BUN/CREAT (test code = 2235) 23 RATIO SODIUM (test code = 2231) 142 MEQ/L POTASSIUM (test code = 2228) 4.7 MEQ/L CHLORIDE (test code = 2215) 97 MEQ/L CARBON DIOXIDE (test code = 2206) 30 MEQ/L CALCIUM (test code = 2209) 10.1 MG/DL PROTEIN, TOTAL (test code = 2229) 7.7 G/DL ALBUMIN (test code = 2201) 5.0 G/DL CALC GLOBULIN (test code = 2240) 2.7 G/DL CALC A/G RATIO (test code = 2234) 1.9 RATIO BILIRUBIN, TOTAL (test code = 2207) <0.2 MG/DL ALKALINE PHOSPHATASE (test code = 2204) 111 U/L AST (test code = 2218) 15 U/L ALT (test code = 2219) 25 U/L Cristian StollTSH, THIRD GENERATION [ADDED]2018-12-01 00:00:00* Test Item Value Reference Range Interpretation Comme nts TSH, THIRD GENERATION (test code = 2821) 1.280 UIU/ML Cristian StollHEMOGLOBIN A1c [ADDED]2018-12-01 00:00:00* Test Item Value Reference Range Interpretation Comme nts HEMOGLOBIN A1c (test code = 74278) 6.7 % Cristian StollCOMPREHENSIVE METABOLIC PANEL [ADDED]2018-12-01 00:00:00* Test Item Value Reference Range Interpretation Comme nts GLUCOSE (test code = 2217) 136 MG/DL BUN (test code = 2208) 15 MG/DL CREATININE (test code = 2214) 0.64 MG/DL eGFR AMER. (test cod e = 40328) 115 ML/MIN/1.73 eGFR NON- AMER. (test code = 51955) 99 ML/MIN/1.73 CALC BUN/CREAT (test code = 2235) 23 RATIO SODIUM (test code = 2231) 142 MEQ/L POTASSIUM (test code = 2228) 4.7 MEQ/L CHLORIDE (test code = 2215) 97 MEQ/L CARBON DIOXIDE (test code = 2206) 30 MEQ/L CALCIUM (test code = 2209) 10.1 MG/DL PROTEIN, TOTAL (test code = 2229) 7.7 G/DL ALBUMIN (test code = 2201) 5.0 G/DL CALC GLOBULIN (test code = 2240) 2.7 G/DL CALC A/G RATIO (test code = 2234) 1.9 RATIO BILIRUBIN, TOTAL (test code = 2207) <0.2 MG/DL ALKALINE PHOSPHATASE (test code = 2204) 111 U/L AST (test code = 2218) 15 U/L ALT (test code = 2219) 25 U/L Cristian StollTSH, THIRD GENERATION [ADDED]2018-12-01 00:00:00* Test Item Value Reference Range Interpretation Comme chiara TSH, THIRD GENERATION (test code = 2821) 1.280 UIU/ML Cristian StollHEMOGLOBIN A1c [ADDED]2018-12-01 00:00:00* Test Item Value Reference Range Interpretation Comme chiara HEMOGLOBIN A1c (test code = 92967) 6.7 % Cristian StollHEMOGLOBIN [id number] 00:00:00* Test Item Value Reference Range Interpretation Comme chiara HEMOGLOBIN A1c (test code = 97461) 5.9 % LIPID [id number] 00:00:00* Test Item Value Reference Range Interpretation Comme nts CHOLESTEROL (test code = 2210) 318 MG/DL TRIGLYCERIDES (test code = 2232) 263 MG/DL HDL CHOLESTEROL (test code = 2220) 51 MG/DL CALC LDL CHOL (test code = 2237) 214 MG/DL RISK RATIO LDL/HDL (test cod e = 2238) 4.20 RATIO COMPREHENSIVE METABOLIC [id number] 00:00:00* Test Item Value Reference Range Interpretation Comme nts GLUCOSE (test code = 2217) 113 MG/DL BUN (test code = 2208) 18 MG/DL CREATININE (test code = 2214) 0.70 MG/DL eGFR AMER. (test cod e = 11768) 111 ML/MIN/1.73 eGFR NON- AMER. (test code = 90829) 96 ML/MIN/1.73 CALC BUN/CREAT (test code = 2235) 26 RATIO SODIUM (test code = 2231) 137 MEQ/L POTASSIUM (test code = 2228) 4.3 MEQ/L CHLORIDE (test code = 2215) 99 MEQ/L CARBON DIOXIDE (test code = 2206) 24 MEQ/L CALCIUM (test code = 2209) 9.6 MG/DL PROTEIN, TOTAL (test code = 2229) 7.2 G/DL ALBUMIN (test code = 2201) 4.8 G/DL CALC GLOBULIN (test code = 2240) 2.4 G/DL CALC A/G RATIO (test code = 2234) 2.0 RATIO BILIRUBIN, TOTAL (test code = 2207) <0.2 MG/DL ALKALINE PHOSPHATASE (test code = 2204) 80 U/L AST (test code = 2218) 21 U/L ALT (test code = 2219) 31 U/L [id number] 00:00:00* Test Item Value Reference Range Interpretation Comme nts TSH, THIRD GENERATION (test code = 2821) 2.520 UIU/ML CBC W/AUTO [id number] 00:00:00* Test Item Value Reference Range Interpretation Comme nts WBC (test code = 1001) 7.1 K/UL [...] (test code = 1015) 346 K/UL HEMOGLOBIN [id number] 00:00:00* Test Item Value Reference Range Interpretation Comme nts HEMOGLOBIN A1c (test code = 40353) 5.9 % LIPID [id number] 00:00:00* Test Item Value Reference Range Interpretation Comme nts CHOLESTEROL (test code = 2210) 318 MG/DL TRIGLYCERIDES (test code = 2232) 263 MG/DL HDL CHOLESTEROL (test code = 2220) 51 MG/DL CALC LDL CHOL (test code = 2237) 214 MG/DL RISK RATIO LDL/HDL (test cod e = 2238) 4.20 RATIO COMPREHENSIVE METABOLIC [id number] 00:00:00* Test Item Value Reference Range Interpretation Comme nts GLUCOSE (test code = 2217) 113 MG/DL BUN (test code = 2208) 18 MG/DL CREATININE (test code = 2214) 0.70 MG/DL eGFR AMER. (test cod e = ) 111 ML/MIN/1.73 eGFR NON- AMER. (test code = 99382) 96 ML/MIN/1.73 CALC BUN/CREAT (test code = 2235) 26 RATIO SODIUM (test code = 2231) 137 MEQ/L POTASSIUM (test code = 2228) 4.3 MEQ/L CHLORIDE (test code = 2215) 99 MEQ/L CARBON DIOXIDE (test code = 2206) 24 MEQ/L CALCIUM (test code = 2209) 9.6 MG/DL PROTEIN, TOTAL (test code = 222) 7.2 G/DL ALBUMIN (test code = 2201) 4.8 G/DL CALC GLOBULIN (test code = 2240) 2.4 G/DL CALC A/G RATIO (test code = 2234) 2.0 RATIO BILIRUBIN, TOTAL (test code = 2207) <0.2 MG/DL ALKALINE PHOSPHATASE (test code = 2204) 80 U/L AST (test code = 2218) 21 U/L ALT (test code = 2219) 31 U/L [id number] 00:00:00* Test Item Value Reference Range Interpretation Comme nts TSH, THIRD GENERATION (test code = 2821) 2.520 UIU/ML CBC W/AUTO [id number] 00:00:00* Test Item Value Reference Range Interpretation Comme nts WBC (test code = 1001) 7.1 K/UL [...] (test code = 1015) 346 K/UL HEMOGLOBIN [id number] 00:00:00* Test Item Value Reference Range Interpretation Comme nts HEMOGLOBIN A1c (test code = 11987) 5.9 % Cristian So AustinHEMOGLOBIN [id number] 00:00:00* Test Item Value Reference Range Interpretation Comme nts HEMOGLOBIN A1c (test code = 28821) 5.9 % LIPID [id number] 00:00:00* Test Item Value Reference Range Interpretation Comme nts CHOLESTEROL (test code = 2210) 318 MG/DL TRIGLYCERIDES (test code = 2232) 263 MG/DL HDL CHOLESTEROL (test code = 2220) 51 MG/DL CALC LDL CHOL (test code = 2237) 214 MG/DL RISK RATIO LDL/HDL (test cod e = 2238) 4.20 RATIO COMPREHENSIVE METABOLIC [id number] 00:00:00* Test Item Value Reference Range Interpretation Comme nts GLUCOSE (test code = 2217) 113 MG/DL BUN (test code = 2208) 18 MG/DL CREATININE (test code = 2214) 0.70 MG/DL eGFR AMER. (test cod e = 40297) 111 ML/MIN/1.73 eGFR NON- AMER. (test code = 72465) 96 ML/MIN/1.73 CALC BUN/CREAT (test code = 2235) 26 RATIO SODIUM (test code = 2231) 137 MEQ/L POTASSIUM (test code = 2228) 4.3 MEQ/L CHLORIDE (test code = 2215) 99 MEQ/L CARBON DIOXIDE (test code = 2206) 24 MEQ/L CALCIUM (test code = 2209) 9.6 MG/DL PROTEIN, TOTAL (test code = 2229) 7.2 G/DL ALBUMIN (test code = 2201) 4.8 G/DL CALC GLOBULIN (test code = 2240) 2.4 G/DL CALC A/G RATIO (test code = 2234) 2.0 RATIO BILIRUBIN, TOTAL (test code = 2207) <0.2 MG/DL ALKALINE PHOSPHATASE (test code = 2204) 80 U/L AST (test code = 2218) 21 U/L ALT (test code = 2219) 31 U/L [id number] 00:00:00* Test Item Value Reference Range Interpretation Comme nts TSH, THIRD GENERATION (test code = 2821) 2.520 UIU/ML CBC W/AUTO [id number] 00:00:00* Test Item Value Reference Range Interpretation Comme nts WBC (test code = 1001) 7.1 K/UL [...] (test code = 1015) 346 K/UL HEMOGLOBIN [id number] 00:00:00* Test Item Value Reference Range Interpretation Comme nts HEMOGLOBIN A1c (test code = 85240) 5.9 % LIPID [id number] 00:00:00* Test Item Value Reference Range Interpretation Comme nts CHOLESTEROL (test code = 2210) 318 MG/DL TRIGLYCERIDES (test code = 2232) 263 MG/DL HDL CHOLESTEROL (test code = 2220) 51 MG/DL CALC LDL CHOL (test code = 2237) 214 MG/DL RISK RATIO LDL/HDL (test cod e = 2238) 4.20 RATIO LIPID [id number] 00:00:00* Test Item Value Reference Range Interpretation Comme nts CHOLESTEROL (test code = 2210) 318 MG/DL TRIGLYCERIDES (test code = 2232) 263 MG/DL HDL CHOLESTEROL (test code = 2220) 51 MG/DL CALC LDL CHOL (test code = 2237) 214 MG/DL RISK RATIO LDL/HDL (test cod e = 2238) 4.20 RATIO Cristian F AustinCOMPREHENSIVE METABOLIC [id number] 00:00:00* Test Item Value Reference Range Interpretation Comme nts GLUCOSE (test code = 2217) 113 MG/DL BUN (test code = 2208) 18 MG/DL CREATININE (test code = 2214) 0.70 MG/DL eGFR AMER. (test cod e = 02904) 111 ML/MIN/1.73 eGFR NON- AMER. (test code = 65980) 96 ML/MIN/1.73 CALC BUN/CREAT (test code = 2235) 26 RATIO SODIUM (test code = 2231) 137 MEQ/L POTASSIUM (test code = 2228) 4.3 MEQ/L CHLORIDE (test code = 2215) 99 MEQ/L CARBON DIOXIDE (test code = 2206) 24 MEQ/L CALCIUM (test code = 2209) 9.6 MG/DL PROTEIN, TOTAL (test code = 2229) 7.2 G/DL ALBUMIN (test code = 2201) 4.8 G/DL CALC GLOBULIN (test code = 2240) 2.4 G/DL CALC A/G RATIO (test code = 2234) 2.0 RATIO BILIRUBIN, TOTAL (test code = 2207) <0.2 MG/DL ALKALINE PHOSPHATASE (test code = 2204) 80 U/L AST (test code = 2218) 21 U/L ALT (test code = 2219) 31 U/L [id number] 00:00:00* Test Item Value Reference Range Interpretation Comme nts TSH, THIRD GENERATION (test code = 2821) 2.520 UIU/ML COMPREHENSIVE METABOLIC [id number] 00:00:00* Test Item Value Reference Range Interpretation Comme nts GLUCOSE (test code = 2217) 113 MG/DL BUN (test code = 2208) 18 MG/DL CREATININE (test code = 2214) 0.70 MG/DL eGFR AMER. (test cod e = 64025) 111 ML/MIN/1.73 eGFR NON- AMER. (test code = 84406) 96 ML/MIN/1.73 CALC BUN/CREAT (test code = 2235) 26 RATIO SODIUM (test code = 2231) 137 MEQ/L POTASSIUM (test code = 2228) 4.3 MEQ/L CHLORIDE (test code = 2215) 99 MEQ/L CARBON DIOXIDE (test code = 2206) 24 MEQ/L CALCIUM (test code = 2209) 9.6 MG/DL PROTEIN, TOTAL (test code = 2229) 7.2 G/DL ALBUMIN (test code = 2201) 4.8 G/DL CALC GLOBULIN (test code = 2240) 2.4 G/DL CALC A/G RATIO (test code = 2234) 2.0 RATIO BILIRUBIN, TOTAL (test code = 2207) <0.2 MG/DL ALKALINE PHOSPHATASE (test code = 2204) 80 U/L AST (test code = 2218) 21 U/L ALT (test code = 2219) 31 U/L Cristian [id number] 00:00:00* Test Item Value Reference Range Interpretation Comme nts TSH, THIRD GENERATION (test code = 2821) 2.520 UIU/ML Cristian StollC W/AUTO [id number] 00:00:00* Test Item Value Reference Range Interpretation Comme nts WBC (test code = 1001) 7.1 K/UL [...] COUNT (test code = 1015) 346 K/UL Cristian StollC W/AUTO [id number] 00:00:00* Test Item Value Reference Range Interpretation Comme nts WBC (test code = 1001) 7.1 K/UL [...] COUNT (test code = 1015) 346 K/UL Cristian StollHEMOGLOBIN [id number] 00:00:00* Test Item Value Reference Range Interpretation Comme chiara HEMOGLOBIN A1c (test code = 36148) 5.9 % Cristian StollLIPID [id number] 00:00:00* Test Item Value Reference Range Interpretation Comme nts CHOLESTEROL (test code = 2210) 318 MG/DL TRIGLYCERIDES (test code = 2232) 263 MG/DL HDL CHOLESTEROL (test code = 2220) 51 MG/DL CALC LDL CHOL (test code = 2237) 214 MG/DL RISK RATIO LDL/HDL (test cod e = 2238) 4.20 RATIO Cristian StollCOMPREHENSIVE METABOLIC [id number] 00:00:00* Test Item Value Reference Range Interpretation Comme nts GLUCOSE (test code = 2217) 113 MG/DL BUN (test code = 2208) 18 MG/DL CREATININE (test code = 2214) 0.70 MG/DL eGFR AMER. (test cod e = 30505) 111 ML/MIN/1.73 eGFR NON- AMER. (test code = 08241) 96 ML/MIN/1.73 CALC BUN/CREAT (test code = 2235) 26 RATIO SODIUM (test code = 2231) 137 MEQ/L POTASSIUM (test code = 2228) 4.3 MEQ/L CHLORIDE (test code = 2215) 99 MEQ/L CARBON DIOXIDE (test code = 2206) 24 MEQ/L CALCIUM (test code = 2209) 9.6 MG/DL PROTEIN, TOTAL (test code = 2229) 7.2 G/DL ALBUMIN (test code = 2201) 4.8 G/DL CALC GLOBULIN (test code = 2240) 2.4 G/DL CALC A/G RATIO (test code = 2234) 2.0 RATIO BILIRUBIN, TOTAL (test code = 2207) <0.2 MG/DL ALKALINE PHOSPHATASE (test code = 2204) 80 U/L AST (test code = 2218) 21 U/L ALT (test code = 2219) 31 U/L Cristian [id number] 00:00:00* Test Item Value Reference Range Interpretation Comme nts TSH, THIRD GENERATION (test code = 2821) 2.520 UIU/ML Cristian StollCBC W/AUTO [id number] 00:00:00* Test Item Value Reference Range Interpretation Comme nts WBC (test code = 1001) 7.1 K/UL [...] COUNT (test code = 1015) 346 K/UL Cristian StollHEMOGLOBIN [id number] 00:00:00* Test Item Value Reference Range Interpretation Comme nts HEMOGLOBIN A1c (test code = 52800) 5.9 % Cristian StollLIPID [id number] 00:00:00* Test Item Value Reference Range Interpretation Comme nts CHOLESTEROL (test code = 2210) 318 MG/DL TRIGLYCERIDES (test code = 2232) 263 MG/DL HDL CHOLESTEROL (test code = 2220) 51 MG/DL CALC LDL CHOL (test code = 2237) 214 MG/DL RISK RATIO LDL/HDL (test cod e = 2238) 4.20 RATIO Cristian StollCOMPREHENSIVE METABOLIC [id number] 00:00:00* Test Item Value Reference Range Interpretation Comme nts GLUCOSE (test code = 2217) 113 MG/DL BUN (test code = 2208) 18 MG/DL CREATININE (test code = 2214) 0.70 MG/DL eGFR AMER. (test cod e = 45259) 111 ML/MIN/1.73 eGFR NON- AMER. (test code = 67670) 96 ML/MIN/1.73 CALC BUN/CREAT (test code = 2235) 26 RATIO SODIUM (test code = 2231) 137 MEQ/L POTASSIUM (test code = 2228) 4.3 MEQ/L CHLORIDE (test code = 2215) 99 MEQ/L CARBON DIOXIDE (test code = 2206) 24 MEQ/L CALCIUM (test code = 2209) 9.6 MG/DL PROTEIN, TOTAL (test code = 2229) 7.2 G/DL ALBUMIN (test code = 2201) 4.8 G/DL CALC GLOBULIN (test code = 2240) 2.4 G/DL CALC A/G RATIO (test code = 2234) 2.0 RATIO BILIRUBIN, TOTAL (test code = 2207) <0.2 MG/DL ALKALINE PHOSPHATASE (test code = 2204) 80 U/L AST (test code = 221) 21 U/L ALT (test code = 221) 31 U/L Cristian [id number] 00:00:00* Test Item Value Reference Range Interpretation Comme nts TSH, THIRD GENERATION (test code = 2821) 2.520 UIU/ML Cristian StollHEMOGLOBIN [id number] 00:00:00* Test Item Value Reference Range Interpretation Comme nts HEMOGLOBIN A1c (test code = 61307) 5.9 % Cristian StollLIPID [id number] 00:00:00* Test Item Value Reference Range Interpretation Comme nts CHOLESTEROL (test code = 2210) 318 MG/DL TRIGLYCERIDES (test code = 2232) 263 MG/DL HDL CHOLESTEROL (test code = 2220) 51 MG/DL CALC LDL CHOL (test code = 2237) 214 MG/DL RISK RATIO LDL/HDL (test cod e = 2238) 4.20 RATIO Cristian StollCOMPREHENSIVE METABOLIC [id number] 00:00:00* Test Item Value Reference Range Interpretation Comme nts GLUCOSE (test code = 2217) 113 MG/DL BUN (test code = 2208) 18 MG/DL CREATININE (test code = 2214) 0.70 MG/DL eGFR AMER. (test cod e = 02113) 111 ML/MIN/1.73 eGFR NON- AMER. (test code = 59039) 96 ML/MIN/1.73 CALC BUN/CREAT (test code = 2235) 26 RATIO SODIUM (test code = 2231) 137 MEQ/L POTASSIUM (test code = 2228) 4.3 MEQ/L CHLORIDE (test code = 2215) 99 MEQ/L CARBON DIOXIDE (test code = 2206) 24 MEQ/L CALCIUM (test code = 2209) 9.6 MG/DL PROTEIN, TOTAL (test code = 2229) 7.2 G/DL ALBUMIN (test code = 2201) 4.8 G/DL CALC GLOBULIN (test code = 2240) 2.4 G/DL CALC A/G RATIO (test code = 2234) 2.0 RATIO BILIRUBIN, TOTAL (test code = 2207) <0.2 MG/DL ALKALINE PHOSPHATASE (test code = 2204) 80 U/L AST (test code = 2218) 21 U/L ALT (test code = 2219) 31 U/L Cristian [id number] 00:00:00* Test Item Value Reference Range Interpretation Comme nts TSH, THIRD GENERATION (test code = 2821) 2.520 UIU/ML Cristian So JermanCBC W/AUTO [id number] 00:00:00* Test Item Value Reference Range Interpretation Comme nts WBC (test code = 1001) 7.1 K/UL [...] COUNT (test code = 1015) 346 K/UL Cristian So JermanHEMOGLOBIN [id number] 00:00:00* Test Item Value Reference Range Interpretation Comme chiara HEMOGLOBIN A1c (test code = 91354) 5.9 % Cristian So JermanLIPID [id number] 00:00:00* Test Item Value Reference Range Interpretation Comme nts CHOLESTEROL (test code = 2210) 318 MG/DL TRIGLYCERIDES (test code = 2232) 263 MG/DL HDL CHOLESTEROL (test code = 2220) 51 MG/DL CALC LDL CHOL (test code = 2237) 214 MG/DL RISK RATIO LDL/HDL (test cod e = 2238) 4.20 RATIO Cristian StollCOMPREHENSIVE METABOLIC [id number] 00:00:00* Test Item Value Reference Range Interpretation Comme nts GLUCOSE (test code = 2217) 113 MG/DL BUN (test code = 2208) 18 MG/DL CREATININE (test code = 2214) 0.70 MG/DL eGFR AMER. (test cod e = 05748) 111 ML/MIN/1.73 eGFR NON- AMER. (test code = 95293) 96 ML/MIN/1.73 CALC BUN/CREAT (test code = 2235) 26 RATIO SODIUM (test code = 2231) 137 MEQ/L POTASSIUM (test code = 2228) 4.3 MEQ/L CHLORIDE (test code = 2215) 99 MEQ/L CARBON DIOXIDE (test code = 2206) 24 MEQ/L CALCIUM (test code = 2209) 9.6 MG/DL PROTEIN, TOTAL (test code = 2229) 7.2 G/DL ALBUMIN (test code = 2201) 4.8 G/DL CALC GLOBULIN (test code = 2240) 2.4 G/DL CALC A/G RATIO (test code = 2234) 2.0 RATIO BILIRUBIN, TOTAL (test code = 2207) <0.2 MG/DL ALKALINE PHOSPHATASE (test code = 2204) 80 U/L AST (test code = 2218) 21 U/L ALT (test code = 2219) 31 U/L Cristian [id number] 00:00:00* Test Item Value Reference Range Interpretation Comme nts TSH, THIRD GENERATION (test code = 2821) 2.520 UIU/ML Cristian StollCBC W/AUTO [id number] 00:00:00* Test Item Value Reference Range Interpretation Comme nts WBC (test code = 1001) 7.1 K/UL [...] COUNT (test code = 1015) 346 K/UL Cristian StollHEMOGLOBIN [id number] 00:00:00* Test Item Value Reference Range Interpretation Comme chiara HEMOGLOBIN A1c (test code = 27294) 5.9 % Cristian StollLIPID [id number] 00:00:00* Test Item Value Reference Range Interpretation Comme nts CHOLESTEROL (test code = 2210) 318 MG/DL TRIGLYCERIDES (test code = 2232) 263 MG/DL HDL CHOLESTEROL (test code = 2220) 51 MG/DL CALC LDL CHOL (test code = 2237) 214 MG/DL RISK RATIO LDL/HDL (test cod e = 2238) 4.20 RATIO Cristian StollCOMPREHENSIVE METABOLIC [id number] 00:00:00* Test Item Value Reference Range Interpretation Comme nts GLUCOSE (test code = 2217) 113 MG/DL BUN (test code = 2208) 18 MG/DL CREATININE (test code = 2214) 0.70 MG/DL eGFR AMER. (test cod e = 23540) 111 ML/MIN/1.73 eGFR NON- AMER. (test code = 67871) 96 ML/MIN/1.73 CALC BUN/CREAT (test code = 2235) 26 RATIO SODIUM (test code = 2231) 137 MEQ/L POTASSIUM (test code = 2228) 4.3 MEQ/L CHLORIDE (test code = 2215) 99 MEQ/L CARBON DIOXIDE (test code = 2206) 24 MEQ/L CALCIUM (test code = 2209) 9.6 MG/DL PROTEIN, TOTAL (test code = 2229) 7.2 G/DL ALBUMIN (test code = 2201) 4.8 G/DL CALC GLOBULIN (test code = 2240) 2.4 G/DL CALC A/G RATIO (test code = 2234) 2.0 RATIO BILIRUBIN, TOTAL (test code = 2207) <0.2 MG/DL ALKALINE PHOSPHATASE (test code = 2204) 80 U/L AST (test code = 2218) 21 U/L ALT (test code = 2219) 31 U/L Cristian [id number] 00:00:00* Test Item Value Reference Range Interpretation Comme nts TSH, THIRD GENERATION (test code = 2821) 2.520 UIU/ML Cristian StollCBC W/AUTO [id number] 00:00:00* Test Item Value Reference Range Interpretation Comme nts WBC (test code = 1001) 7.1 K/UL [...] COUNT (test code = 1015) 346 K/UL Cristian StollHEMOGLOBIN [id number] 00:00:00* Test Item Value Reference Range Interpretation Comme chiara HEMOGLOBIN A1c (test code = 31169) 5.9 % Cristian StollLIPID [id number] 00:00:00* Test Item Value Reference Range Interpretation Comme nts CHOLESTEROL (test code = 2210) 318 MG/DL TRIGLYCERIDES (test code = 2232) 263 MG/DL HDL CHOLESTEROL (test code = 2220) 51 MG/DL CALC LDL CHOL (test code = 2237) 214 MG/DL RISK RATIO LDL/HDL (test cod e = 2238) 4.20 RATIO Cristian StollCOMPREHENSIVE METABOLIC [id number] 00:00:00* Test Item Value Reference Range Interpretation Comme nts GLUCOSE (test code = 2217) 113 MG/DL BUN (test code = 2208) 18 MG/DL CREATININE (test code = 2214) 0.70 MG/DL eGFR AMER. (test cod e = 07981) 111 ML/MIN/1.73 eGFR NON- AMER. (test code = 76146) 96 ML/MIN/1.73 CALC BUN/CREAT (test code = 2235) 26 RATIO SODIUM (test code = 2231) 137 MEQ/L POTASSIUM (test code = 2228) 4.3 MEQ/L CHLORIDE (test code = 2215) 99 MEQ/L CARBON DIOXIDE (test code = 2206) 24 MEQ/L CALCIUM (test code = 2209) 9.6 MG/DL PROTEIN, TOTAL (test code = 2229) 7.2 G/DL ALBUMIN (test code = 2201) 4.8 G/DL CALC GLOBULIN (test code = 2240) 2.4 G/DL CALC A/G RATIO (test code = 2234) 2.0 RATIO BILIRUBIN, TOTAL (test code = 2207) <0.2 MG/DL ALKALINE PHOSPHATASE (test code = 2204) 80 U/L AST (test code = 2218) 21 U/L ALT (test code = 2219) 31 U/L Cristian [id number] 00:00:00* Test Item Value Reference Range Interpretation Comme nts TSH, THIRD GENERATION (test code = 2821) 2.520 UIU/ML Cristian StollC W/AUTO [id number] 00:00:00* Test Item Value Reference Range Interpretation Comme nts WBC (test code = 1001) 7.1 K/UL [...] COUNT (test code = 1015) 346 K/UL Cristian StollHEMOGLOBIN [id number] 00:00:00* Test Item Value Reference Range Interpretation Comme chiara HEMOGLOBIN A1c (test code = 53365) 5.9 % Cristian StollLIPID [id number] 00:00:00* Test Item Value Reference Range Interpretation Comme nts CHOLESTEROL (test code = 2210) 318 MG/DL TRIGLYCERIDES (test code = 2232) 263 MG/DL HDL CHOLESTEROL (test code = 2220) 51 MG/DL CALC LDL CHOL (test code = 2237) 214 MG/DL RISK RATIO LDL/HDL (test cod e = 2238) 4.20 RATIO Cristian StollCOMPREHENSIVE METABOLIC [id number] 00:00:00* Test Item Value Reference Range Interpretation Comme nts GLUCOSE (test code = 2217) 113 MG/DL BUN (test code = 2208) 18 MG/DL CREATININE (test code = 2214) 0.70 MG/DL eGFR AMER. (test cod e = 91952) 111 ML/MIN/1.73 eGFR NON- AMER. (test code = 91086) 96 ML/MIN/1.73 CALC BUN/CREAT (test code = 2235) 26 RATIO SODIUM (test code = 2231) 137 MEQ/L POTASSIUM (test code = 2228) 4.3 MEQ/L CHLORIDE (test code = 2215) 99 MEQ/L CARBON DIOXIDE (test code = 2206) 24 MEQ/L CALCIUM (test code = 2209) 9.6 MG/DL PROTEIN, TOTAL (test code = 2229) 7.2 G/DL ALBUMIN (test code = 2201) 4.8 G/DL CALC GLOBULIN (test code = 2240) 2.4 G/DL CALC A/G RATIO (test code = 2234) 2.0 RATIO BILIRUBIN, TOTAL (test code = 2207) <0.2 MG/DL ALKALINE PHOSPHATASE (test code = 2204) 80 U/L AST (test code = 2218) 21 U/L ALT (test code = 2219) 31 U/L Cristian [id number] 00:00:00* Test Item Value Reference Range Interpretation Comme nts TSH, THIRD GENERATION (test code = 2821) 2.520 UIU/ML Cristian MatosC W/AUTO [id number] 00:00:00* Test Item Value Reference Range Interpretation Comme nts WBC (test code = 1001) 7.1 K/UL [...] COUNT (test code = 1015) 346 K/UL Cristian StollHEMOGLOBIN [id number] 00:00:00* Test Item Value Reference Range Interpretation Comme chiara HEMOGLOBIN A1c (test code = 72285) 5.9 % Cristian StollLIPID [id number] 00:00:00* Test Item Value Reference Range Interpretation Comme nts CHOLESTEROL (test code = 2210) 318 MG/DL TRIGLYCERIDES (test code = 2232) 263 MG/DL HDL CHOLESTEROL (test code = 2220) 51 MG/DL CALC LDL CHOL (test code = 2237) 214 MG/DL RISK RATIO LDL/HDL (test cod e = 2238) 4.20 RATIO Cristian StollCOMPREHENSIVE METABOLIC [id number] 00:00:00* Test Item Value Reference Range Interpretation Comme nts GLUCOSE (test code = 2217) 113 MG/DL BUN (test code = 2208) 18 MG/DL CREATININE (test code = 2214) 0.70 MG/DL eGFR AMER. (test cod e = 87491) 111 ML/MIN/1.73 eGFR NON- AMER. (test code = 55283) 96 ML/MIN/1.73 CALC BUN/CREAT (test code = 2235) 26 RATIO SODIUM (test code = 2231) 137 MEQ/L POTASSIUM (test code = 2228) 4.3 MEQ/L CHLORIDE (test code = 2215) 99 MEQ/L CARBON DIOXIDE (test code = 2206) 24 MEQ/L CALCIUM (test code = 2209) 9.6 MG/DL PROTEIN, TOTAL (test code = 2229) 7.2 G/DL ALBUMIN (test code = 2201) 4.8 G/DL CALC GLOBULIN (test code = 2240) 2.4 G/DL CALC A/G RATIO (test code = 2234) 2.0 RATIO BILIRUBIN, TOTAL (test code = 2207) <0.2 MG/DL ALKALINE PHOSPHATASE (test code = 2204) 80 U/L AST (test code = 2218) 21 U/L ALT (test code = 2219) 31 U/L Cristian [id number] 00:00:00* Test Item Value Reference Range Interpretation Comme nts TSH, THIRD GENERATION (test code = 2821) 2.520 UIU/ML Cristian So [place]CBC W/AUTO [id number] 00:00:00* Test Item Value Reference Range Interpretation Comme nts WBC (test code = 1001) 7.1 K/UL [...] COUNT (test code = 1015) 346 K/UL Cristian So [place]CBC W/AUTO [id number] 00:00:00* Test Item Value Reference Range Interpretation Comme nts WBC (test code = 1001) 7.1 K/UL [...] (test code = 1015) 346 K/UL CULTURE, [id number] 00:00:00* Test Item Value Reference Range Interpretation Comme nts CULTURE, URINE (test code = 78242) SPECIMEN NUMBER: [id number] CULTURE, [id number] 00:00:00* Test Item Value Reference Range Interpretation Comme nts CULTURE, URINE (test code = 61319) SPECIMEN NUMBER: [id number] CULTURE, [id number] 00:00:00* Test Item Value Reference Range Interpretation Comme nts CULTURE, URINE (test code = 21975) SPECIMEN NUMBER: [id number] CULTURE, [id number] 00:00:00* Test Item Value Reference Range Interpretation Comme nts CULTURE, URINE (test code = 36059) SPECIMEN NUMBER: [id number] Cristian Mary, [id number] 00:00:00* Test Item Value Reference Range Interpretation Comme nts CULTURE, URINE (test code = 76439) SPECIMEN NUMBER: [id number] Cristian MinerLTTERE, [id number] 00:00:00* Test Item Value Reference Range Interpretation Comme nts CULTURE, URINE (test code = 37524) SPECIMEN NUMBER: [id number] Cristian MinerLTURE, [id number] 00:00:00* Test Item Value Reference Range Interpretation Comme nts CULTURE, URINE (test code = 95000) SPECIMEN NUMBER: [id number] Cristian MinerLTURE, [id number] 00:00:00* Test Item Value Reference Range Interpretation Comme nts CULTURE, URINE (test code = 56415) SPECIMEN NUMBER: [id number] Cristian MinerLTTERE, [id number] 00:00:00* Test Item Value Reference Range Interpretation Comme nts CULTURE, URINE (test code = 35088) SPECIMEN NUMBER: [id number] Cristian Mary, [id number] 00:00:00* Test Item Value Reference Range Interpretation Comme nts CULTURE, URINE (test code = 13061) SPECIMEN NUMBER: [id number] Cristian Mary, [id number] 00:00:00* Test Item Value Reference Range Interpretation Comme nts CULTURE, URINE (test code = 00952) SPECIMEN NUMBER: [id number] Cristian Mary, [id number] 00:00:00* Test Item Value Reference Range Interpretation Comme nts CULTURE, URINE (test code = 41478) SPECIMEN NUMBER: [id number] Cristian Mary, [id number] 00:00:00* Test Item Value Reference Range Interpretation Comme nts CULTURE, URINE (test code = 83717) SPECIMEN NUMBER: [id number] CULTURE, [id number] 00:00:00* Test Item Value Reference Range Interpretation Comme nts CULTURE, URINE (test code = 06407) SPECIMEN NUMBER: [id number] CULTURE, [id number] 00:00:00* Test Item Value Reference Range Interpretation Comme nts CULTURE, URINE (test code = 51498) SPECIMEN NUMBER: [id number] CULTURE, [id number] 00:00:00* Test Item Value Reference Range Interpretation Comme nts CULTURE, URINE (test code = 88766) SPECIMEN NUMBER: [id number] CULTURE, [id number] 00:00:00* Test Item Value Reference Range Interpretation Comme nts CULTURE, URINE (test code = 77510) SPECIMEN NUMBER: [id number] CULTURE, [id number] 00:00:00* Test Item Value Reference Range Interpretation Comme nts CULTURE, URINE (test code = 30609) SPECIMEN NUMBER: [id number] Cristian MinerLTTERE, [id number] 00:00:00* Test Item Value Reference Range Interpretation Comme nts CULTURE, URINE (test code = 89804) SPECIMEN NUMBER: [id number] Cristian MinerLTTERE, [id number] 00:00:00* Test Item Value Reference Range Interpretation Comme nts CULTURE, URINE (test code = 23907) SPECIMEN NUMBER: [id number] Cristian MinerLTTERE, [id number] 00:00:00* Test Item Value Reference Range Interpretation Comme nts CULTURE, URINE (test code = 94895) SPECIMEN NUMBER: [id number] Cristian Mary, [id number] 00:00:00* Test Item Value Reference Range Interpretation Comme nts CULTURE, URINE (test code = 58057) SPECIMEN NUMBER: [id number] Cristian MinerLTTERE, [id number] 00:00:00* Test Item Value Reference Range Interpretation Comme nts CULTURE, URINE (test code = 95410) SPECIMEN NUMBER: [id number] Cristian Mary, [id number] 00:00:00* Test Item Value Reference Range Interpretation Comme nts CULTURE, URINE (test code = 12539) SPECIMEN NUMBER: [id number] Cristian Mary, [id number] 00:00:00* Test Item Value Reference Range Interpretation Comme nts CULTURE, URINE (test code = 11368) SPECIMEN NUMBER: [id number] Cristian MinerLTTERE, [id number] 00:00:00* Test Item Value Reference Range Interpretation Comme nts CULTURE, URINE (test code = 27964) SPECIMEN NUMBER: [id number] Cristian StollLIPID [id number] 00:00:00* Test Item Value Reference Range Interpretation Comme nts CHOLESTEROL (test code = 2210) 262 MG/DL TRIGLYCERIDES (test code = 2232) 300 MG/DL HDL CHOLESTEROL (test code = 2220) 36 MG/DL CALC LDL CHOL (test code = 2237) 166 MG/DL RISK RATIO LDL/HDL (test cod e = 2238) 4.61 RATIO HEMOGLOBIN [id number] 00:00:00* Test Item Value Reference Range Interpretation Comme nts HEMOGLOBIN A1c (test code = 49634) 6.2 % [id number] 00:00:00* Test Item Value Reference Range Interpretation Comme nts TSH, THIRD GENERATION (test code = 2821) 0.988 UIU/ML BASIC METABOLIC [id number] 00:00:00* Test Item Value Reference Range Interpretation Comme nts GLUCOSE (test code = 2217) 135 MG/DL BUN (test code = 2208) 25 MG/DL CREATININE (test code = 2214) 0.76 MG/DL eGFR AMER. (test cod e = 75649) 101 ML/MIN/1.73 eGFR NON- AMER. (test code = 78078) 87 ML/MIN/1.73 SODIUM (test code = 2231) 139 MEQ/L POTASSIUM (test code = 2228) 4.7 MEQ/L CHLORIDE (test code = 2215) 99 MEQ/L CARBON DIOXIDE (test code = 2206) 26 MEQ/L CALCIUM (test code = 2209) 9.4 MG/DL LIPID [id number] 00:00:00* Test Item Value Reference Range Interpretation Comme nts CHOLESTEROL (test code = 2210) 262 MG/DL TRIGLYCERIDES (test code = 2232) 300 MG/DL HDL CHOLESTEROL (test code = 2220) 36 MG/DL CALC LDL CHOL (test code = 2237) 166 MG/DL RISK RATIO LDL/HDL (test cod e = 2238) 4.61 RATIO HEMOGLOBIN [id number] 00:00:00* Test Item Value Reference Range Interpretation Comme nts HEMOGLOBIN A1c (test code = 21608) 6.2 % [id number] 00:00:00* Test Item Value Reference Range Interpretation Comme nts TSH, THIRD GENERATION (test code = 2821) 0.988 UIU/ML BASIC METABOLIC [id number] 00:00:00* Test Item Value Reference Range Interpretation Comme nts GLUCOSE (test code = 2217) 135 MG/DL BUN (test code = 2208) 25 MG/DL CREATININE (test code = 2214) 0.76 MG/DL eGFR AMER. (test cod e = 00555) 101 ML/MIN/1.73 eGFR NON- AMER. (test code = 03648) 87 ML/MIN/1.73 SODIUM (test code = 2231) 139 MEQ/L POTASSIUM (test code = 2228) 4.7 MEQ/L CHLORIDE (test code = 2215) 99 MEQ/L CARBON DIOXIDE (test code = 2206) 26 MEQ/L CALCIUM (test code = 2209) 9.4 MG/DL LIPID [id number] 00:00:00* Test Item Value Reference Range Interpretation Comme nts CHOLESTEROL (test code = 2210) 262 MG/DL TRIGLYCERIDES (test code = 2232) 300 MG/DL HDL CHOLESTEROL (test code = 2220) 36 MG/DL CALC LDL CHOL (test code = 2237) 166 MG/DL RISK RATIO LDL/HDL (test cod e = 2238) 4.61 RATIO HEMOGLOBIN [id number] 00:00:00* Test Item Value Reference Range Interpretation Comme nts HEMOGLOBIN A1c (test code = 17179) 6.2 % LIPID [id number] 00:00:00* Test Item Value Reference Range Interpretation Comme nts CHOLESTEROL (test code = 2210) 262 MG/DL TRIGLYCERIDES (test code = 2232) 300 MG/DL HDL CHOLESTEROL (test code = 2220) 36 MG/DL CALC LDL CHOL (test code = 2237) 166 MG/DL RISK RATIO LDL/HDL (test cod e = 2238) 4.61 RATIO Cristian So [id number] 00:00:00* Test Item Value Reference Range Interpretation Comme nts TSH, THIRD GENERATION (test code = 2821) 0.988 UIU/ML BASIC METABOLIC [id number] 00:00:00* Test Item Value Reference Range Interpretation Comme nts GLUCOSE (test code = 2217) 135 MG/DL BUN (test code = 2208) 25 MG/DL CREATININE (test code = 2214) 0.76 MG/DL eGFR AMER. (test cod e = 81418) 101 ML/MIN/1.73 eGFR NON- AMER. (test code = 29864) 87 ML/MIN/1.73 SODIUM (test code = 2231) 139 MEQ/L POTASSIUM (test code = 2228) 4.7 MEQ/L CHLORIDE (test code = 2215) 99 MEQ/L CARBON DIOXIDE (test code = 2206) 26 MEQ/L CALCIUM (test code = 2209) 9.4 MG/DL LIPID [id number] 00:00:00* Test Item Value Reference Range Interpretation Comme nts CHOLESTEROL (test code = 2210) 262 MG/DL TRIGLYCERIDES (test code = 2232) 300 MG/DL HDL CHOLESTEROL (test code = 2220) 36 MG/DL CALC LDL CHOL (test code = 2237) 166 MG/DL RISK RATIO LDL/HDL (test cod e = 2238) 4.61 RATIO HEMOGLOBIN [id number] 00:00:00* Test Item Value Reference Range Interpretation Comme nts HEMOGLOBIN A1c (test code = 90329) 6.2 % Cristian So [place]MOGLOB[place] [id number] 00:00:00* Test Item Value Reference Range Interpretation Comme nts HEMOGLOBIN A1c (test code = 32616) 6.2 % [id number] 00:00:00* Test Item Value Reference Range Interpretation Comme nts TSH, THIRD GENERATION (test code = 2821) 0.988 UIU/ML [id number] 00:00:00* Test Item Value Reference Range Interpretation Comme nts TSH, THIRD GENERATION (test code = 2821) 0.988 UIU/ML Cristian StollBASIC METABOLIC [id number] 00:00:00* Test Item Value Reference Range Interpretation Comme nts GLUCOSE (test code = 2217) 135 MG/DL BUN (test code = 2208) 25 MG/DL CREATININE (test code = 2214) 0.76 MG/DL eGFR AMER. (test cod e = 83359) 101 ML/MIN/1.73 eGFR NON- AMER. (test code = 97035) 87 ML/MIN/1.73 SODIUM (test code = 2231) 139 MEQ/L POTASSIUM (test code = 2228) 4.7 MEQ/L CHLORIDE (test code = 2215) 99 MEQ/L CARBON DIOXIDE (test code = 2206) 26 MEQ/L CALCIUM (test code = 2209) 9.4 MG/DL Cristian So [place]IP[place] [id number] 00:00:00* Test Item Value Reference Range Interpretation Comme nts CHOLESTEROL (test code = 2210) 262 MG/DL TRIGLYCERIDES (test code = 2232) 300 MG/DL HDL CHOLESTEROL (test code = 2220) 36 MG/DL CALC LDL CHOL (test code = 2237) 166 MG/DL RISK RATIO LDL/HDL (test cod e = 2238) 4.61 RATIO Cristian StollHEMOGLOBIN [id number] 00:00:00* Test Item Value Reference Range Interpretation Comme nts HEMOGLOBIN A1c (test code = 46822) 6.2 % Cristian So [id number] 00:00:00* Test Item Value Reference Range Interpretation Comme nts TSH, THIRD GENERATION (test code = 2821) 0.988 UIU/ML Cristian So [facility] METABOLIC [id number] 00:00:00* Test Item Value Reference Range Interpretation Comme nts GLUCOSE (test code = 2217) 135 MG/DL BUN (test code = 2208) 25 MG/DL CREATININE (test code = 2214) 0.76 MG/DL eGFR AMER. (test cod e = 72053) 101 ML/MIN/1.73 eGFR NON- AMER. (test code = 12354) 87 ML/MIN/1.73 SODIUM (test code = 2231) 139 MEQ/L POTASSIUM (test code = 2228) 4.7 MEQ/L CHLORIDE (test code = 2215) 99 MEQ/L CARBON DIOXIDE (test code = 2206) 26 MEQ/L CALCIUM (test code = 2209) 9.4 MG/DL Cristian So [facility] METABOLIC [id number] 00:00:00* Test Item Value Reference Range Interpretation Comme nts GLUCOSE (test code = 2217) 135 MG/DL BUN (test code = 2208) 25 MG/DL CREATININE (test code = 2214) 0.76 MG/DL eGFR AMER. (test cod e = 43544) 101 ML/MIN/1.73 eGFR NON- AMER. (test code = 18568) 87 ML/MIN/1.73 SODIUM (test code = 2231) 139 MEQ/L POTASSIUM (test code = 2228) 4.7 MEQ/L CHLORIDE (test code = 2215) 99 MEQ/L CARBON DIOXIDE (test code = 2206) 26 MEQ/L CALCIUM (test code = 2209) 9.4 MG/DL Cristian So [place] [id number] 00:00:00* Test Item Value Reference Range Interpretation Comme nts CHOLESTEROL (test code = 2210) 262 MG/DL TRIGLYCERIDES (test code = 2232) 300 MG/DL HDL CHOLESTEROL (test code = 2220) 36 MG/DL CALC LDL CHOL (test code = 2237) 166 MG/DL RISK RATIO LDL/HDL (test cod e = 2238) 4.61 RATIO Cristian So [place] [id number] 00:00:00* Test Item Value Reference Range Interpretation Comme nts HEMOGLOBIN A1c (test code = 64434) 6.2 % Cristian [id number] 00:00:00* Test Item Value Reference Range Interpretation Comme nts TSH, THIRD GENERATION (test code = 2821) 0.988 UIU/ML Cristian StollLIPID [id number] 00:00:00* Test Item Value Reference Range Interpretation Comme nts CHOLESTEROL (test code = 2210) 262 MG/DL TRIGLYCERIDES (test code = 2232) 300 MG/DL HDL CHOLESTEROL (test code = 2220) 36 MG/DL CALC LDL CHOL (test code = 2237) 166 MG/DL RISK RATIO LDL/HDL (test cod e = 2238) 4.61 RATIO Cristian StollHEMOGLOBIN [id number] 00:00:00* Test Item Value Reference Range Interpretation Comme nts HEMOGLOBIN A1c (test code = 54384) 6.2 % Cristian [id number] 00:00:00* Test Item Value Reference Range Interpretation Comme nts TSH, THIRD GENERATION (test code = 2821) 0.988 UIU/ML Cristian StollBASIC METABOLIC [id number] 00:00:00* Test Item Value Reference Range Interpretation Comme nts GLUCOSE (test code = 2217) 135 MG/DL BUN (test code = 2208) 25 MG/DL CREATININE (test code = 2214) 0.76 MG/DL eGFR AMER. (test cod e = 55621) 101 ML/MIN/1.73 eGFR NON- AMER. (test code = 10501) 87 ML/MIN/1.73 SODIUM (test code = 2231) 139 MEQ/L POTASSIUM (test code = 2228) 4.7 MEQ/L CHLORIDE (test code = 2215) 99 MEQ/L CARBON DIOXIDE (test code = 2206) 26 MEQ/L CALCIUM (test code = 2209) 9.4 MG/DL Cristian StollLIPID [id number] 00:00:00* Test Item Value Reference Range Interpretation Comme nts CHOLESTEROL (test code = 2210) 262 MG/DL TRIGLYCERIDES (test code = 2232) 300 MG/DL HDL CHOLESTEROL (test code = 2220) 36 MG/DL CALC LDL CHOL (test code = 2237) 166 MG/DL RISK RATIO LDL/HDL (test cod e = 2238) 4.61 RATIO Cristian So [place] [id number] 00:00:00* Test Item Value Reference Range Interpretation Comme nts HEMOGLOBIN A1c (test code = 72294) 6.2 % Cristian So [id number] 00:00:00* Test Item Value Reference Range Interpretation Comme nts TSH, THIRD GENERATION (test code = 2821) 0.988 UIU/ML Cristian StollBASIC METABOLIC [id number] 00:00:00* Test Item Value Reference Range Interpretation Comme nts GLUCOSE (test code = 2217) 135 MG/DL BUN (test code = 2208) 25 MG/DL CREATININE (test code = 2214) 0.76 MG/DL eGFR AMER. (test cod e = 13825) 101 ML/MIN/1.73 eGFR NON- AMER. (test code = 67530) 87 ML/MIN/1.73 SODIUM (test code = 2231) 139 MEQ/L POTASSIUM (test code = 2228) 4.7 MEQ/L CHLORIDE (test code = 2215) 99 MEQ/L CARBON DIOXIDE (test code = 2206) 26 MEQ/L CALCIUM (test code = 2209) 9.4 MG/DL Cristian So [place] [id number] 00:00:00* Test Item Value Reference Range Interpretation Comme nts CHOLESTEROL (test code = 2210) 262 MG/DL TRIGLYCERIDES (test code = 2232) 300 MG/DL HDL CHOLESTEROL (test code = 2220) 36 MG/DL CALC LDL CHOL (test code = 2237) 166 MG/DL RISK RATIO LDL/HDL (test cod e = 2238) 4.61 RATIO Cristian StollHEMOGLOBIN [id number] 00:00:00* Test Item Value Reference Range Interpretation Comme nts HEMOGLOBIN A1c (test code = 61646) 6.2 % Cristian So [id number] 00:00:00* Test Item Value Reference Range Interpretation Comme nts TSH, THIRD GENERATION (test code = 2821) 0.988 UIU/ML Cristian StollBASIC METABOLIC [id number] 00:00:00* Test Item Value Reference Range Interpretation Comme nts GLUCOSE (test code = 2217) 135 MG/DL BUN (test code = 2208) 25 MG/DL CREATININE (test code = 2214) 0.76 MG/DL eGFR AMER. (test cod e = 65285) 101 ML/MIN/1.73 eGFR NON- AMER. (test code = 53657) 87 ML/MIN/1.73 SODIUM (test code = 2231) 139 MEQ/L POTASSIUM (test code = 2228) 4.7 MEQ/L CHLORIDE (test code = 2215) 99 MEQ/L CARBON DIOXIDE (test code = 2206) 26 MEQ/L CALCIUM (test code = 2209) 9.4 MG/DL Cristian StollLIPID [id number] 00:00:00* Test Item Value Reference Range Interpretation Comme nts CHOLESTEROL (test code = 2210) 262 MG/DL TRIGLYCERIDES (test code = 2232) 300 MG/DL HDL CHOLESTEROL (test code = 2220) 36 MG/DL CALC LDL CHOL (test code = 2237) 166 MG/DL RISK RATIO LDL/HDL (test cod e = 2238) 4.61 RATIO Cristian StollHEMOGLOBIN [id number] 00:00:00* Test Item Value Reference Range Interpretation Comme nts HEMOGLOBIN A1c (test code = 70544) 6.2 % Cristian So [id number] 00:00:00* Test Item Value Reference Range Interpretation Comme nts TSH, THIRD GENERATION (test code = 2821) 0.988 UIU/ML Cristian StollBASIC METABOLIC [id number] 00:00:00* Test Item Value Reference Range Interpretation Comme nts GLUCOSE (test code = 2217) 135 MG/DL BUN (test code = 2208) 25 MG/DL CREATININE (test code = 2214) 0.76 MG/DL eGFR AMER. (test cod e = 93081) 101 ML/MIN/1.73 eGFR NON- AMER. (test code = 07938) 87 ML/MIN/1.73 SODIUM (test code = 2231) 139 MEQ/L POTASSIUM (test code = 2228) 4.7 MEQ/L CHLORIDE (test code = 2215) 99 MEQ/L CARBON DIOXIDE (test code = 2206) 26 MEQ/L CALCIUM (test code = 2209) 9.4 MG/DL Cristian StollLIPID [id number] 00:00:00* Test Item Value Reference Range Interpretation Comme nts CHOLESTEROL (test code = 2210) 262 MG/DL TRIGLYCERIDES (test code = 2232) 300 MG/DL HDL CHOLESTEROL (test code = 2220) 36 MG/DL CALC LDL CHOL (test code = 2237) 166 MG/DL RISK RATIO LDL/HDL (test cod e = 2238) 4.61 RATIO Cristian StollHEMOGLOBIN [id number] 00:00:00* Test Item Value Reference Range Interpretation Comme nts HEMOGLOBIN A1c (test code = 60594) 6.2 % Cristian So [id number] 00:00:00* Test Item Value Reference Range Interpretation Comme nts TSH, THIRD GENERATION (test code = 2821) 0.988 UIU/ML [facility] [id number] 00:00:00* Test Item Value Reference Range Interpretation Comme nts GLUCOSE (test code = 2217) 135 MG/DL BUN (test code = 2208) 25 MG/DL CREATININE (test code = 2214) 0.76 MG/DL eGFR AMER. (test cod e = 82181) 101 ML/MIN/1.73 eGFR NON- AMER. (test code = 30821) 87 ML/MIN/1.73 SODIUM (test code = 2231) 139 MEQ/L POTASSIUM (test code = 2228) 4.7 MEQ/L CHLORIDE (test code = 2215) 99 MEQ/L CARBON DIOXIDE (test code = 2206) 26 MEQ/L CALCIUM (test code = 2209) 9.4 MG/DL Cristian StollLIPID [id number] 00:00:00* Test Item Value Reference Range Interpretation Comme nts CHOLESTEROL (test code = 2210) 262 MG/DL TRIGLYCERIDES (test code = 2232) 300 MG/DL HDL CHOLESTEROL (test code = 2220) 36 MG/DL CALC LDL CHOL (test code = 2237) 166 MG/DL RISK RATIO LDL/HDL (test cod e = 2238) 4.61 RATIO Cristian StollHEMOGLOBIN [id number] 00:00:00* Test Item Value Reference Range Interpretation Comme nts HEMOGLOBIN A1c (test code = 77447) 6.2 % Cristian [id number] 00:00:00* Test Item Value Reference Range Interpretation Comme nts TSH, THIRD GENERATION (test code = 2821) 0.988 UIU/ML Cristian So [facility] METABOLIC [id number] 00:00:00* Test Item Value Reference Range Interpretation Comme nts GLUCOSE (test code = 2217) 135 MG/DL BUN (test code = 2208) 25 MG/DL CREATININE (test code = 2214) 0.76 MG/DL eGFR AMER. (test cod e = 78472) 101 ML/MIN/1.73 eGFR NON- AMER. (test code = 96060) 87 ML/MIN/1.73 SODIUM (test code = 2231) 139 MEQ/L POTASSIUM (test code = 2228) 4.7 MEQ/L CHLORIDE (test code = 2215) 99 MEQ/L CARBON DIOXIDE (test code = 2206) 26 MEQ/L CALCIUM (test code = 2209) 9.4 MG/DL Cristian So [facility] METABOLIC [id number] 00:00:00* Test Item Value Reference Range Interpretation Comme nts GLUCOSE (test code = 2217) 135 MG/DL BUN (test code = 2208) 25 MG/DL CREATININE (test code = 2214) 0.76 MG/DL eGFR AMER. (test cod e = 01351) 101 ML/MIN/1.73 eGFR NON- AMER. (test code = 31247) 87 ML/MIN/1.73 SODIUM (test code = 2231) 139 MEQ/L POTASSIUM (test code = 2228) 4.7 MEQ/L CHLORIDE (test code = 2215) 99 MEQ/L CARBON DIOXIDE (test code = 2206) 26 MEQ/L CALCIUM (test code = 2209) 9.4 MG/DL LIPID [id number] 00:00:00* Test Item Value Reference Range Interpretation Comme nts CHOLESTEROL (test code = 2210) 295 MG/DL TRIGLYCERIDES (test code = 2232) 218 MG/DL HDL CHOLESTEROL (test code = 2220) 46 MG/DL CALC LDL CHOL (test code = 2237) 205 MG/DL RISK RATIO LDL/HDL (test cod e = 2238) 4.47 RATIO HEMOGLOBIN [id number] 00:00:00* Test Item Value Reference Range Interpretation Comme nts HEMOGLOBIN A1c (test code = 54054) 7.0 % [id number] 00:00:00* Test Item Value Reference Range Interpretation Comme nts TSH, THIRD GENERATION (test code = 2821) 0.565 UIU/ML COMPREHENSIVE METABOLIC [id number] 00:00:00* Test Item Value Reference Range Interpretation Comme nts GLUCOSE (test code = 2217) 109 MG/DL BUN (test code = 2208) 25 MG/DL CREATININE (test code = 2214) 0.78 MG/DL eGFR AMER. (test cod e = 56793) 98 ML/MIN/1.73 eGFR NON- AMER. (test code = 00563) 84 ML/MIN/1.73 CALC BUN/CREAT (test code = 2235) 32 RATIO SODIUM (test code = 2231) 139 MEQ/L POTASSIUM (test code = 2228) 4.5 MEQ/L CHLORIDE (test code = 2215) 96 MEQ/L CARBON DIOXIDE (test code = 2206) 27 MEQ/L CALCIUM (test code = 2209) 10.0 MG/DL PROTEIN, TOTAL (test code = 2229) 7.6 G/DL ALBUMIN (test code = 2201) 4.9 G/DL CALC GLOBULIN (test code = 2240) 2.7 G/DL CALC A/G RATIO (test code = 2234) 1.8 RATIO BILIRUBIN, TOTAL (test code = 2207) <0.2 MG/DL ALKALINE PHOSPHATASE (test code = 2204) 109 U/L AST (test code = 2218) 18 U/L ALT (test code = 2219) 25 U/L LIPID [id number] 00:00:00* Test Item Value Reference Range Interpretation Comme nts CHOLESTEROL (test code = 2210) 295 MG/DL TRIGLYCERIDES (test code = 2232) 218 MG/DL HDL CHOLESTEROL (test code = 2220) 46 MG/DL CALC LDL CHOL (test code = 2237) 205 MG/DL RISK RATIO LDL/HDL (test cod e = 2238) 4.47 RATIO HEMOGLOBIN [id number] 00:00:00* Test Item Value Reference Range Interpretation Comme nts HEMOGLOBIN A1c (test code = 48588) 7.0 % [id number] 00:00:00* Test Item Value Reference Range Interpretation Comme nts TSH, THIRD GENERATION (test code = 2821) 0.565 UIU/ML COMPREHENSIVE METABOLIC [id number] 00:00:00* Test Item Value Reference Range Interpretation Comme nts GLUCOSE (test code = 2217) 109 MG/DL BUN (test code = 2208) 25 MG/DL CREATININE (test code = 2214) 0.78 MG/DL eGFR AMER. (test cod e = 95391) 98 ML/MIN/1.73 eGFR NON- AMER. (test code = 86256) 84 ML/MIN/1.73 CALC BUN/CREAT (test code = 2235) 32 RATIO SODIUM (test code = 2231) 139 MEQ/L POTASSIUM (test code = 2228) 4.5 MEQ/L CHLORIDE (test code = 2215) 96 MEQ/L CARBON DIOXIDE (test code = 2206) 27 MEQ/L CALCIUM (test code = 2209) 10.0 MG/DL PROTEIN, TOTAL (test code = 2229) 7.6 G/DL ALBUMIN (test code = 2201) 4.9 G/DL CALC GLOBULIN (test code = 2240) 2.7 G/DL CALC A/G RATIO (test code = 2234) 1.8 RATIO BILIRUBIN, TOTAL (test code = 2207) <0.2 MG/DL ALKALINE PHOSPHATASE (test code = 2204) 109 U/L AST (test code = 2218) 18 U/L ALT (test code = 2219) 25 U/L COMPREHENSIVE METABOLIC [id number] 00:00:00* Test Item Value Reference Range Interpretation Comme nts GLUCOSE (test code = 2217) 109 MG/DL BUN (test code = 2208) 25 MG/DL CREATININE (test code = 2214) 0.78 MG/DL eGFR AMER. (test cod e = 88213) 98 ML/MIN/1.73 eGFR NON- AMER. (test code = 00379) 84 ML/MIN/1.73 CALC BUN/CREAT (test code = 2235) 32 RATIO SODIUM (test code = 2231) 139 MEQ/L POTASSIUM (test code = 2228) 4.5 MEQ/L CHLORIDE (test code = 2215) 96 MEQ/L CARBON DIOXIDE (test code = 2206) 27 MEQ/L CALCIUM (test code = 2209) 10.0 MG/DL PROTEIN, TOTAL (test code = 2229) 7.6 G/DL ALBUMIN (test code = 2201) 4.9 G/DL CALC GLOBULIN (test code = 2240) 2.7 G/DL CALC A/G RATIO (test code = 2234) 1.8 RATIO BILIRUBIN, TOTAL (test code = 2207) <0.2 MG/DL ALKALINE PHOSPHATASE (test code = 2204) 109 U/L AST (test code = 2218) 18 U/L ALT (test code = 2219) 25 U/L Cristian StollLIPID [id number] 00:00:00* Test Item Value Reference Range Interpretation Comme nts CHOLESTEROL (test code = 2210) 295 MG/DL TRIGLYCERIDES (test code = 2232) 218 MG/DL HDL CHOLESTEROL (test code = 2220) 46 MG/DL CALC LDL CHOL (test code = 2237) 205 MG/DL RISK RATIO LDL/HDL (test cod e = 2238) 4.47 RATIO HEMOGLOBIN [id number] 00:00:00* Test Item Value Reference Range Interpretation Comme nts HEMOGLOBIN A1c (test code = 28353) 7.0 % LIPID [id number] 00:00:00* Test Item Value Reference Range Interpretation Comme nts CHOLESTEROL (test code = 2210) 295 MG/DL TRIGLYCERIDES (test code = 2232) 218 MG/DL HDL CHOLESTEROL (test code = 2220) 46 MG/DL CALC LDL CHOL (test code = 2237) 205 MG/DL RISK RATIO LDL/HDL (test cod e = 2238) 4.47 RATIO Cristian [id number] 00:00:00* Test Item Value Reference Range Interpretation Comme nts TSH, THIRD GENERATION (test code = 2821) 0.565 UIU/ML COMPREHENSIVE METABOLIC [id number] 00:00:00* Test Item Value Reference Range Interpretation Comme nts GLUCOSE (test code = 2217) 109 MG/DL BUN (test code = 2208) 25 MG/DL CREATININE (test code = 2214) 0.78 MG/DL eGFR AMER. (test cod e = 78023) 98 ML/MIN/1.73 eGFR NON- AMER. (test code = 62956) 84 ML/MIN/1.73 CALC BUN/CREAT (test code = 2235) 32 RATIO SODIUM (test code = 2231) 139 MEQ/L POTASSIUM (test code = 2228) 4.5 MEQ/L CHLORIDE (test code = 2215) 96 MEQ/L CARBON DIOXIDE (test code = 2206) 27 MEQ/L CALCIUM (test code = 2209) 10.0 MG/DL PROTEIN, TOTAL (test code = 2229) 7.6 G/DL ALBUMIN (test code = 2201) 4.9 G/DL CALC GLOBULIN (test code = 2240) 2.7 G/DL CALC A/G RATIO (test code = 2234) 1.8 RATIO BILIRUBIN, TOTAL (test code = 2207) <0.2 MG/DL ALKALINE PHOSPHATASE (test code = 2204) 109 U/L AST (test code = 2218) 18 U/L ALT (test code = 2219) 25 U/L Cristian So JermanCOMPREHENSIVE METABOLIC [id number] 00:00:00* Test Item Value Reference Range Interpretation Comme nts GLUCOSE (test code = 2217) 109 MG/DL BUN (test code = 2208) 25 MG/DL CREATININE (test code = 2214) 0.78 MG/DL eGFR AMER. (test cod e = 91333) 98 ML/MIN/1.73 eGFR NON- AMER. (test code = 48510) 84 ML/MIN/1.73 CALC BUN/CREAT (test code = 2235) 32 RATIO SODIUM (test code = 2231) 139 MEQ/L POTASSIUM (test code = 2228) 4.5 MEQ/L CHLORIDE (test code = 2215) 96 MEQ/L CARBON DIOXIDE (test code = 2206) 27 MEQ/L CALCIUM (test code = 2209) 10.0 MG/DL PROTEIN, TOTAL (test code = 2229) 7.6 G/DL ALBUMIN (test code = 2201) 4.9 G/DL CALC GLOBULIN (test code = 2240) 2.7 G/DL CALC A/G RATIO (test code = 2234) 1.8 RATIO BILIRUBIN, TOTAL (test code = 2207) <0.2 MG/DL ALKALINE PHOSPHATASE (test code = 2204) 109 U/L AST (test code = 2218) 18 U/L ALT (test code = 2219) 25 U/L HEMOGLOBIN [id number] 00:00:00* Test Item Value Reference Range Interpretation Comme nts HEMOGLOBIN A1c (test code = 17825) 7.0 % Cristian So AustinLIPID [id number] 00:00:00* Test Item Value Reference Range Interpretation Comme nts CHOLESTEROL (test code = 2210) 295 MG/DL TRIGLYCERIDES (test code = 2232) 218 MG/DL HDL CHOLESTEROL (test code = 2220) 46 MG/DL CALC LDL CHOL (test code = 2237) 205 MG/DL RISK RATIO LDL/HDL (test cod e = 2238) 4.47 RATIO HEMOGLOBIN [id number] 00:00:00* Test Item Value Reference Range Interpretation Comme nts HEMOGLOBIN A1c (test code = 60144) 7.0 % [id number] 00:00:00* Test Item Value Reference Range Interpretation Comme nts TSH, THIRD GENERATION (test code = 2821) 0.565 UIU/ML [id number] 00:00:00* Test Item Value Reference Range Interpretation Comme nts TSH, THIRD GENERATION (test code = 2821) 0.565 UIU/ML Cristian StollCOMPREHENSIVE METABOLIC [id number] 00:00:00* Test Item Value Reference Range Interpretation Comme nts GLUCOSE (test code = 2217) 109 MG/DL BUN (test code = 2208) 25 MG/DL CREATININE (test code = 2214) 0.78 MG/DL eGFR AMER. (test cod e = 34262) 98 ML/MIN/1.73 eGFR NON- AMER. (test code = 56664) 84 ML/MIN/1.73 CALC BUN/CREAT (test code = 2235) 32 RATIO SODIUM (test code = 2231) 139 MEQ/L POTASSIUM (test code = 2228) 4.5 MEQ/L CHLORIDE (test code = 2215) 96 MEQ/L CARBON DIOXIDE (test code = 2206) 27 MEQ/L CALCIUM (test code = 2209) 10.0 MG/DL PROTEIN, TOTAL (test code = 2229) 7.6 G/DL ALBUMIN (test code = 2201) 4.9 G/DL CALC GLOBULIN (test code = 2240) 2.7 G/DL CALC A/G RATIO (test code = 2234) 1.8 RATIO BILIRUBIN, TOTAL (test code = 2207) <0.2 MG/DL ALKALINE PHOSPHATASE (test code = 2204) 109 U/L AST (test code = 2218) 18 U/L ALT (test code = 2219) 25 U/L Cristian StollLIPID [id number] 00:00:00* Test Item Value Reference Range Interpretation Comme nts CHOLESTEROL (test code = 2210) 295 MG/DL TRIGLYCERIDES (test code = 2232) 218 MG/DL HDL CHOLESTEROL (test code = 2220) 46 MG/DL CALC LDL CHOL (test code = 2237) 205 MG/DL RISK RATIO LDL/HDL (test cod e = 2238) 4.47 RATIO Cristian StollHEMOGLOBIN [id number] 00:00:00* Test Item Value Reference Range Interpretation Comme nts HEMOGLOBIN A1c (test code = 37877) 7.0 % Cristian [id number] 00:00:00* Test Item Value Reference Range Interpretation Comme nts TSH, THIRD GENERATION (test code = 2821) 0.565 UIU/ML Cristian StollCOMPREHENSIVE METABOLIC [id number] 00:00:00* Test Item Value Reference Range Interpretation Comme nts GLUCOSE (test code = 2217) 109 MG/DL BUN (test code = 2208) 25 MG/DL CREATININE (test code = 2214) 0.78 MG/DL eGFR AMER. (test cod e = 94536) 98 ML/MIN/1.73 eGFR NON- AMER. (test code = 30713) 84 ML/MIN/1.73 CALC BUN/CREAT (test code = 2235) 32 RATIO SODIUM (test code = 2231) 139 MEQ/L POTASSIUM (test code = 2228) 4.5 MEQ/L CHLORIDE (test code = 2215) 96 MEQ/L CARBON DIOXIDE (test code = 2206) 27 MEQ/L CALCIUM (test code = 2209) 10.0 MG/DL PROTEIN, TOTAL (test code = 2229) 7.6 G/DL ALBUMIN (test code = 2201) 4.9 G/DL CALC GLOBULIN (test code = 2240) 2.7 G/DL CALC A/G RATIO (test code = 2234) 1.8 RATIO BILIRUBIN, TOTAL (test code = 2207) <0.2 MG/DL ALKALINE PHOSPHATASE (test code = 2204) 109 U/L AST (test code = 2218) 18 U/L ALT (test code = 2219) 25 U/L Cristian StollLIPID [id number] 00:00:00* Test Item Value Reference Range Interpretation Comme nts CHOLESTEROL (test code = 2210) 295 MG/DL TRIGLYCERIDES (test code = 2232) 218 MG/DL HDL CHOLESTEROL (test code = 2220) 46 MG/DL CALC LDL CHOL (test code = 2237) 205 MG/DL RISK RATIO LDL/HDL (test cod e = 2238) 4.47 RATIO Cristian So AustinHEMOGLOBIN [id number] 00:00:00* Test Item Value Reference Range Interpretation Comme nts HEMOGLOBIN A1c (test code = 38299) 7.0 % Cristian So [id number] 00:00:00* Test Item Value Reference Range Interpretation Comme nts TSH, THIRD GENERATION (test code = 2821) 0.565 UIU/ML Cristian StollLIPID [id number] 00:00:00* Test Item Value Reference Range Interpretation Comme nts CHOLESTEROL (test code = 2210) 295 MG/DL TRIGLYCERIDES (test code = 2232) 218 MG/DL HDL CHOLESTEROL (test code = 2220) 46 MG/DL CALC LDL CHOL (test code = 2237) 205 MG/DL RISK RATIO LDL/HDL (test cod e = 2238) 4.47 RATIO Cristian So AustinHEMOGLOBIN [id number] 00:00:00* Test Item Value Reference Range Interpretation Comme nts HEMOGLOBIN A1c (test code = 81474) 7.0 % Cristian So [id number] 00:00:00* Test Item Value Reference Range Interpretation Comme nts TSH, THIRD GENERATION (test code = 2821) 0.565 UIU/ML Critsian StollCOMPREHENSIVE METABOLIC [id number] 00:00:00* Test Item Value Reference Range Interpretation Comme nts GLUCOSE (test code = 2217) 109 MG/DL BUN (test code = 2208) 25 MG/DL CREATININE (test code = 2214) 0.78 MG/DL eGFR AMER. (test cod e = 57069) 98 ML/MIN/1.73 eGFR NON- AMER. (test code = 64972) 84 ML/MIN/1.73 CALC BUN/CREAT (test code = 2235) 32 RATIO SODIUM (test code = 2231) 139 MEQ/L POTASSIUM (test code = 2228) 4.5 MEQ/L CHLORIDE (test code = 2215) 96 MEQ/L CARBON DIOXIDE (test code = 2206) 27 MEQ/L CALCIUM (test code = 2209) 10.0 MG/DL PROTEIN, TOTAL (test code = 2229) 7.6 G/DL ALBUMIN (test code = 2201) 4.9 G/DL CALC GLOBULIN (test code = 2240) 2.7 G/DL CALC A/G RATIO (test code = 2234) 1.8 RATIO BILIRUBIN, TOTAL (test code = 2207) <0.2 MG/DL ALKALINE PHOSPHATASE (test code = 2204) 109 U/L AST (test code = 2218) 18 U/L ALT (test code = 2219) 25 U/L Cristian StollLIPID [id number] 00:00:00* Test Item Value Reference Range Interpretation Comme nts CHOLESTEROL (test code = 2210) 295 MG/DL TRIGLYCERIDES (test code = 2232) 218 MG/DL HDL CHOLESTEROL (test code = 2220) 46 MG/DL CALC LDL CHOL (test code = 2237) 205 MG/DL RISK RATIO LDL/HDL (test cod e = 2238) 4.47 RATIO Cristian StollHEMOGLOBIN [id number] 00:00:00* Test Item Value Reference Range Interpretation Comme nts HEMOGLOBIN A1c (test code = 60929) 7.0 % Cristian [id number] 00:00:00* Test Item Value Reference Range Interpretation Comme nts TSH, THIRD GENERATION (test code = 2821) 0.565 UIU/ML Cristian StollCOMPREHENSIVE METABOLIC [id number] 00:00:00* Test Item Value Reference Range Interpretation Comme nts GLUCOSE (test code = 2217) 109 MG/DL BUN (test code = 2208) 25 MG/DL CREATININE (test code = 2214) 0.78 MG/DL eGFR AMER. (test cod e = 36059) 98 ML/MIN/1.73 eGFR NON- AMER. (test code = 61832) 84 ML/MIN/1.73 CALC BUN/CREAT (test code = 2235) 32 RATIO SODIUM (test code = 2231) 139 MEQ/L POTASSIUM (test code = 2228) 4.5 MEQ/L CHLORIDE (test code = 2215) 96 MEQ/L CARBON DIOXIDE (test code = 2206) 27 MEQ/L CALCIUM (test code = 2209) 10.0 MG/DL PROTEIN, TOTAL (test code = 2229) 7.6 G/DL ALBUMIN (test code = 2201) 4.9 G/DL CALC GLOBULIN (test code = 2240) 2.7 G/DL CALC A/G RATIO (test code = 2234) 1.8 RATIO BILIRUBIN, TOTAL (test code = 2207) <0.2 MG/DL ALKALINE PHOSPHATASE (test code = 2204) 109 U/L AST (test code = 2218) 18 U/L ALT (test code = 2219) 25 U/L Cristian StollLIPID [id number] 00:00:00* Test Item Value Reference Range Interpretation Comme nts CHOLESTEROL (test code = 2210) 295 MG/DL TRIGLYCERIDES (test code = 2232) 218 MG/DL HDL CHOLESTEROL (test code = 2220) 46 MG/DL CALC LDL CHOL (test code = 2237) 205 MG/DL RISK RATIO LDL/HDL (test cod e = 2238) 4.47 RATIO Cristian StollHEMOGLOBIN [id number] 00:00:00* Test Item Value Reference Range Interpretation Comme nts HEMOGLOBIN A1c (test code = 29091) 7.0 % Cristian [id number] 00:00:00* Test Item Value Reference Range Interpretation Comme nts TSH, THIRD GENERATION (test code = 2821) 0.565 UIU/ML Cristian StollCOMPREHENSIVE METABOLIC [id number] 00:00:00* Test Item Value Reference Range Interpretation Comme nts GLUCOSE (test code = 2217) 109 MG/DL BUN (test code = 2208) 25 MG/DL CREATININE (test code = 2214) 0.78 MG/DL eGFR AMER. (test cod e = 18498) 98 ML/MIN/1.73 eGFR NON- AMER. (test code = 18492) 84 ML/MIN/1.73 CALC BUN/CREAT (test code = 2235) 32 RATIO SODIUM (test code = 2231) 139 MEQ/L POTASSIUM (test code = 2228) 4.5 MEQ/L CHLORIDE (test code = 2215) 96 MEQ/L CARBON DIOXIDE (test code = 2206) 27 MEQ/L CALCIUM (test code = 2209) 10.0 MG/DL PROTEIN, TOTAL (test code = 2229) 7.6 G/DL ALBUMIN (test code = 2201) 4.9 G/DL CALC GLOBULIN (test code = 2240) 2.7 G/DL CALC A/G RATIO (test code = 2234) 1.8 RATIO BILIRUBIN, TOTAL (test code = 2207) <0.2 MG/DL ALKALINE PHOSPHATASE (test code = 2204) 109 U/L AST (test code = 221) 18 U/L ALT (test code = 2219) 25 U/L Cristian StollLIPID [id number] 00:00:00* Test Item Value Reference Range Interpretation Comme nts CHOLESTEROL (test code = 2210) 295 MG/DL TRIGLYCERIDES (test code = 2232) 218 MG/DL HDL CHOLESTEROL (test code = 2220) 46 MG/DL CALC LDL CHOL (test code = 2237) 205 MG/DL RISK RATIO LDL/HDL (test cod e = 2238) 4.47 RATIO Cristian StollHEMOGLOBIN [id number] 00:00:00* Test Item Value Reference Range Interpretation Comme nts HEMOGLOBIN A1c (test code = 97419) 7.0 % Cristian [id number] 00:00:00* Test Item Value Reference Range Interpretation Comme nts TSH, THIRD GENERATION (test code = 2821) 0.565 UIU/ML Cristian StollCOMPREHENSIVE METABOLIC [id number] 00:00:00* Test Item Value Reference Range Interpretation Comme nts GLUCOSE (test code = 2217) 109 MG/DL BUN (test code = 2208) 25 MG/DL CREATININE (test code = 2214) 0.78 MG/DL eGFR AMER. (test cod e = 91744) 98 ML/MIN/1.73 eGFR NON- AMER. (test code = 89710) 84 ML/MIN/1.73 CALC BUN/CREAT (test code = 2235) 32 RATIO SODIUM (test code = 2231) 139 MEQ/L POTASSIUM (test code = 2228) 4.5 MEQ/L CHLORIDE (test code = 2215) 96 MEQ/L CARBON DIOXIDE (test code = 2206) 27 MEQ/L CALCIUM (test code = 2209) 10.0 MG/DL PROTEIN, TOTAL (test code = 2229) 7.6 G/DL ALBUMIN (test code = 2201) 4.9 G/DL CALC GLOBULIN (test code = 2240) 2.7 G/DL CALC A/G RATIO (test code = 2234) 1.8 RATIO BILIRUBIN, TOTAL (test code = 2207) <0.2 MG/DL ALKALINE PHOSPHATASE (test code = 2204) 109 U/L AST (test code = 221) 18 U/L ALT (test code = 2219) 25 U/L Cristian StollLIPID [id number] 00:00:00* Test Item Value Reference Range Interpretation Comme nts CHOLESTEROL (test code = 2210) 295 MG/DL TRIGLYCERIDES (test code = 2232) 218 MG/DL HDL CHOLESTEROL (test code = 2220) 46 MG/DL CALC LDL CHOL (test code = 2237) 205 MG/DL RISK RATIO LDL/HDL (test cod e = 2238) 4.47 RATIO Cristian StollHEMOGLOBIN [id number] 00:00:00* Test Item Value Reference Range Interpretation Comme chiara HEMOGLOBIN A1c (test code = 19315) 7.0 % Cristian [id number] 00:00:00* Test Item Value Reference Range Interpretation Comme nts TSH, THIRD GENERATION (test code = 2821) 0.565 UIU/ML Cristian StollCOMPREHENSIVE METABOLIC [id number] 00:00:00* Test Item Value Reference Range Interpretation Comme nts GLUCOSE (test code = 2217) 109 MG/DL BUN (test code = 2208) 25 MG/DL CREATININE (test code = 2214) 0.78 MG/DL eGFR AMER. (test cod e = 30197) 98 ML/MIN/1.73 eGFR NON- AMER. (test code = 40135) 84 ML/MIN/1.73 CALC BUN/CREAT (test code = 2235) 32 RATIO SODIUM (test code = 2231) 139 MEQ/L POTASSIUM (test code = 2228) 4.5 MEQ/L CHLORIDE (test code = 2215) 96 MEQ/L CARBON DIOXIDE (test code = 2206) 27 MEQ/L CALCIUM (test code = 2209) 10.0 MG/DL PROTEIN, TOTAL (test code = 2229) 7.6 G/DL ALBUMIN (test code = 2201) 4.9 G/DL CALC GLOBULIN (test code = 2240) 2.7 G/DL CALC A/G RATIO (test code = 2234) 1.8 RATIO BILIRUBIN, TOTAL (test code = 2207) <0.2 MG/DL ALKALINE PHOSPHATASE (test code = 2204) 109 U/L AST (test code = 221) 18 U/L ALT (test code = 2219) 25 U/L Cristian StollLIPID [id number] 00:00:00* Test Item Value Reference Range Interpretation Comme nts CHOLESTEROL (test code = 2210) 295 MG/DL TRIGLYCERIDES (test code = 2232) 218 MG/DL HDL CHOLESTEROL (test code = 0) 46 MG/DL CALC LDL CHOL (test code = 2237) 205 MG/DL RISK RATIO LDL/HDL (test cod e = 2238) 4.47 RATIO Cristian StollHEMOGLOBIN [id number] 00:00:00* Test Item Value Reference Range Interpretation Comme nts HEMOGLOBIN A1c (test code = 65953) 7.0 % Cristian [id number] 00:00:00* Test Item Value Reference Range Interpretation Comme nts TSH, THIRD GENERATION (test code = 2821) 0.565 UIU/ML Cristian StollCOMPREHENSIVE METABOLIC [id number] 00:00:00* Test Item Value Reference Range Interpretation Comme nts GLUCOSE (test code = 2217) 109 MG/DL BUN (test code = 2208) 25 MG/DL CREATININE (test code = 2214) 0.78 MG/DL eGFR AMER. (test cod e = 79604) 98 ML/MIN/1.73 eGFR NON- AMER. (test code = 76414) 84 ML/MIN/1.73 CALC BUN/CREAT (test code = 2235) 32 RATIO SODIUM (test code = 2231) 139 MEQ/L POTASSIUM (test code = 2228) 4.5 MEQ/L CHLORIDE (test code = 2215) 96 MEQ/L CARBON DIOXIDE (test code = 2206) 27 MEQ/L CALCIUM (test code = 2209) 10.0 MG/DL PROTEIN, TOTAL (test code = 2229) 7.6 G/DL ALBUMIN (test code = 2201) 4.9 G/DL CALC GLOBULIN (test code = 2240) 2.7 G/DL CALC A/G RATIO (test code = 2234) 1.8 RATIO BILIRUBIN, TOTAL (test code = 2206) <0.2 MG/DL ALKALINE PHOSPHATASE (test code = 2203) 109 U/L AST (test code = 2217) 18 U/L ALT (test code = 2219) 25 U/L [id number] 00:00:00* Test Item Value Reference Range Interpretation Comme nts TSH, THIRD GENERATION (test code = 2821) 0.379 UIU/ML [id number] 00:00:00* Test Item Value Reference Range Interpretation Comme nts TSH, THIRD GENERATION (test code = 2821) 0.379 UIU/ML Cristian F [id number] 00:00:00* Test Item Value Reference Range Interpretation Comme nts TSH, THIRD GENERATION (test code = 2821) 0.379 UIU/ML [id number] 00:00:00* Test Item Value Reference Range Interpretation Comme nts TSH, THIRD GENERATION (test code = 2821) 0.379 UIU/ML [id number] 00:00:00* Test Item Value Reference Range Interpretation Comme nts TSH, THIRD GENERATION (test code = 2821) 0.379 UIU/ML Cristian Saray [id number] 00:00:00* Test Item Value Reference Range Interpretation Comme nts TSH, THIRD GENERATION (test code = 2821) 0.379 UIU/ML Cristian F [id number] 00:00:00* Test Item Value Reference Range Interpretation Comme nts TSH, THIRD GENERATION (test code = 2821) 0.379 UIU/ML Cristian F [id number] 00:00:00* Test Item Value Reference Range Interpretation Comme nts TSH, THIRD GENERATION (test code = 2821) 0.379 UIU/ML Cristian [id number] 00:00:00* Test Item Value Reference Range Interpretation Comme nts TSH, THIRD GENERATION (test code = 2821) 0.379 UIU/ML Cristian [id number] 00:00:00* Test Item Value Reference Range Interpretation Comme nts TSH, THIRD GENERATION (test code = 2821) 0.379 UIU/ML Cristian [id number] 00:00:00* Test Item Value Reference Range Interpretation Comme nts TSH, THIRD GENERATION (test code = 2821) 0.379 UIU/ML Cristian [id number] 00:00:00* Test Item Value Reference Range Interpretation Comme nts TSH, THIRD GENERATION (test code = 2821) 0.379 UIU/ML Cristian [id number] 00:00:00* Test Item Value Reference Range Interpretation Comme nts TSH, THIRD GENERATION (test code = 2821) 0.379 UIU/ML CULTURE, [id number] 00:00:00* Test Item Value Reference Range Interpretation Comme nts CULTURE, URINE (test code = 18535) SPECIMEN NUMBER: [id number] CULTURE, [id number] 00:00:00* Test Item Value Reference Range Interpretation Comme nts CULTURE, URINE (test code = 35080) SPECIMEN NUMBER: [id number] CULTURE, [id number] 00:00:00* Test Item Value Reference Range Interpretation Comme nts CULTURE, URINE (test code = 58768) SPECIMEN NUMBER: [id number] Cristian StollCULTURE, [id number] 00:00:00* Test Item Value Reference Range Interpretation Comme nts CULTURE, URINE (test code = 13496) SPECIMEN NUMBER: [id number] CULTURE, [id number] 00:00:00* Test Item Value Reference Range Interpretation Comme nts CULTURE, URINE (test code = 88534) SPECIMEN NUMBER: [id number] Cristian StollCULTURE, [id number] 00:00:00* Test Item Value Reference Range Interpretation Comme nts CULTURE, URINE (test code = 25776) SPECIMEN NUMBER: [id number] Cristian Mary, [id number] 00:00:00* Test Item Value Reference Range Interpretation Comme nts CULTURE, URINE (test code = 67883) SPECIMEN NUMBER: [id number] Cristian Mary [id number] 00:00:00* Test Item Value Reference Range Interpretation Comme nts CULTURE, URINE (test code = 89728) SPECIMEN NUMBER: [id number] Cristian Mary [id number] 00:00:00* Test Item Value Reference Range Interpretation Comme nts CULTURE, URINE (test code = 56414) SPECIMEN NUMBER: [id number] Cristian Mary, [id number] 00:00:00* Test Item Value Reference Range Interpretation Comme nts CULTURE, URINE (test code = 53844) SPECIMEN NUMBER: [id number] Cristian Mary, [id number] 00:00:00* Test Item Value Reference Range Interpretation Comme nts CULTURE, URINE (test code = 63082) SPECIMEN NUMBER: [id number] Cristian Mary [id number] 00:00:00* Test Item Value Reference Range Interpretation Comme nts CULTURE, URINE (test code = 30971) SPECIMEN NUMBER: [id number] Cristian Mary, [id number] 00:00:00* Test Item Value Reference Range Interpretation Comme nts CULTURE, URINE (test code = 31701) SPECIMEN NUMBER: [id number] ACUTE HEPATITIS [id number] 00:00:00* Test Item Value Reference Range Interpretation Comme nts HEPATITIS A IgM (test code = 86082) NON-REACTIVE HEPATITIS B CORE IgM (test c ode = 4644) NON-REACTIVE HEPATITIS B SURF AG (test co de = 2739) NON-REACTIVE HEPATITIS C ANTIBODY (test c ode = 4675) NON-REACTIVE INTERPRETATION HEPATITIS A: (test code = 2552) (NOTE) INTERPRETATION HEPATITIS B: (test code = 65764) (NOTE) INTERPRETATION HEPATITIS C: (test code = 81562) (NOTE) [id number] 00:00:00* Test Item Value Reference Range Interpretation Comme nts AMYLASE (test code = 2205) 32 U/L [id number] 00:00:00* Test Item Value Reference Range Interpretation Comme nts LIPASE (test code = 205) 22 U/L COMPREHENSIVE METABOLIC [id number] 00:00:00* Test Item Value Reference Range Interpretation Comme nts GLUCOSE (test code = 2217) 128 MG/DL BUN (test code = 2208) 26 MG/DL CREATININE (test code = 2214) 0.92 MG/DL eGFR AMER. (test cod e = 01242) 81 ML/MIN/1.73 eGFR NON- AMER. (test code = 34359) 70 ML/MIN/1.73 CALC BUN/CREAT (test code = 2235) 28 RATIO SODIUM (test code = 2231) 138 MEQ/L POTASSIUM (test code = 2228) 4.4 MEQ/L CHLORIDE (test code = 2215) 94 MEQ/L CARBON DIOXIDE (test code = 2206) 31 MEQ/L CALCIUM (test code = 2209) 9.5 MG/DL PROTEIN, TOTAL (test code = 2229) 7.3 G/DL ALBUMIN (test code = 2201) 4.7 G/DL CALC GLOBULIN (test code = 2240) 2.6 G/DL CALC A/G RATIO (test code = 2234) 1.8 RATIO BILIRUBIN, TOTAL (test code = 2207) <0.2 MG/DL ALKALINE PHOSPHATASE (test code = 2204) 104 U/L AST (test code = 2218) 24 U/L ALT (test code = 2219) 29 U/L ACUTE HEPATITIS [id number] 00:00:00* Test Item Value Reference Range Interpretation Comme nts HEPATITIS A IgM (test code = 10742) NON-REACTIVE HEPATITIS B CORE IgM (test c ode = 4644) NON-REACTIVE HEPATITIS B SURF AG (test co de = 9279) NON-REACTIVE HEPATITIS C ANTIBODY (test c ode = 4608) NON-REACTIVE INTERPRETATION HEPATITIS A: (test code = 2552) (NOTE) INTERPRETATION HEPATITIS B: (test code = 43869) (NOTE) INTERPRETATION HEPATITIS C: (test code = 92037) (NOTE) [id number] 00:00:00* Test Item Value Reference Range Interpretation Comme nts AMYLASE (test code = 2205) 32 U/L [id number] 00:00:00* Test Item Value Reference Range Interpretation Comme nts LIPASE (test code = 8) 22 U/L COMPREHENSIVE METABOLIC [id number] 00:00:00* Test Item Value Reference Range Interpretation Comme nts GLUCOSE (test code = 2217) 128 MG/DL BUN (test code = 2208) 26 MG/DL CREATININE (test code = 2214) 0.92 MG/DL eGFR AMER. (test cod e = 99003) 81 ML/MIN/1.73 eGFR NON- AMER. (test code = 88997) 70 ML/MIN/1.73 CALC BUN/CREAT (test code = 2235) 28 RATIO SODIUM (test code = 2231) 138 MEQ/L POTASSIUM (test code = 2228) 4.4 MEQ/L CHLORIDE (test code = 2215) 94 MEQ/L CARBON DIOXIDE (test code = 2206) 31 MEQ/L CALCIUM (test code = 2209) 9.5 MG/DL PROTEIN, TOTAL (test code = 2229) 7.3 G/DL ALBUMIN (test code = 2201) 4.7 G/DL CALC GLOBULIN (test code = 2240) 2.6 G/DL CALC A/G RATIO (test code = 2234) 1.8 RATIO BILIRUBIN, TOTAL (test code = 2207) <0.2 MG/DL ALKALINE PHOSPHATASE (test code = 2204) 104 U/L AST (test code = 2218) 24 U/L ALT (test code = 2219) 29 U/L ACUTE HEPATITIS [id number] 00:00:00* Test Item Value Reference Range Interpretation Comme nts HEPATITIS A IgM (test code = 99440) NON-REACTIVE HEPATITIS B CORE IgM (test c ode = 4644) NON-REACTIVE HEPATITIS B SURF AG (test co de = 2739) NON-REACTIVE HEPATITIS C ANTIBODY (test c ode = 4654) NON-REACTIVE INTERPRETATION HEPATITIS A: (test code = 2552) (NOTE) INTERPRETATION HEPATITIS B: (test code = 55519) (NOTE) INTERPRETATION HEPATITIS C: (test code = 62718) (NOTE) [id number] 00:00:00* Test Item Value Reference Range Interpretation Comme nts AMYLASE (test code = 5) 32 U/L [id number] 00:00:00* Test Item Value Reference Range Interpretation Comme nts LIPASE (test code = 2058) 22 U/L ACUTE HEPATITIS [id number] 00:00:00* Test Item Value Reference Range Interpretation Comme nts HEPATITIS A IgM (test code = 81334) NON-REACTIVE HEPATITIS B CORE IgM (test c ode = 4644) NON-REACTIVE HEPATITIS B SURF AG (test co de = 4629) NON-REACTIVE HEPATITIS C ANTIBODY (test c ode = 4675) NON-REACTIVE INTERPRETATION HEPATITIS A: (test code = 2552) (NOTE) INTERPRETATION HEPATITIS B: (test code = 11018) (NOTE) INTERPRETATION HEPATITIS C: (test code = 53286) (NOTE) Cristian StollCOMPREHENSIVE METABOLIC [id number] 00:00:00* Test Item Value Reference Range Interpretation Comme nts GLUCOSE (test code = 2217) 128 MG/DL BUN (test code = 2208) 26 MG/DL CREATININE (test code = 2214) 0.92 MG/DL eGFR AMER. (test cod e = 30754) 81 ML/MIN/1.73 eGFR NON- AMER. (test code = 97356) 70 ML/MIN/1.73 CALC BUN/CREAT (test code = 2235) 28 RATIO SODIUM (test code = 2231) 138 MEQ/L POTASSIUM (test code = 2228) 4.4 MEQ/L CHLORIDE (test code = 2215) 94 MEQ/L CARBON DIOXIDE (test code = 2206) 31 MEQ/L CALCIUM (test code = 2209) 9.5 MG/DL PROTEIN, TOTAL (test code = 2229) 7.3 G/DL ALBUMIN (test code = 2201) 4.7 G/DL CALC GLOBULIN (test code = 2240) 2.6 G/DL CALC A/G RATIO (test code = 2234) 1.8 RATIO BILIRUBIN, TOTAL (test code = 2207) <0.2 MG/DL ALKALINE PHOSPHATASE (test code = 2204) 104 U/L AST (test code = 2218) 24 U/L ALT (test code = 2219) 29 U/L ACUTE HEPATITIS [id number] 00:00:00* Test Item Value Reference Range Interpretation Comme nts HEPATITIS A IgM (test code = 10483) NON-REACTIVE HEPATITIS B CORE IgM (test c ode = 4644) NON-REACTIVE HEPATITIS B SURF AG (test co de = 2739) NON-REACTIVE HEPATITIS C ANTIBODY (test c ode = 7017) NON-REACTIVE INTERPRETATION HEPATITIS A: (test code = 2552) (NOTE) INTERPRETATION HEPATITIS B: (test code = 66167) (NOTE) INTERPRETATION HEPATITIS C: (test code = 89537) (NOTE) [id number] 00:00:00* Test Item Value Reference Range Interpretation Comme nts AMYLASE (test code = 2205) 32 U/L Cristian F [id number] 00:00:00* Test Item Value Reference Range Interpretation Comme nts AMYLASE (test code = 2205) 32 U/L [id number] 00:00:00* Test Item Value Reference Range Interpretation Comme nts LIPASE (test code = 2058) 22 U/L [id number] 00:00:00* Test Item Value Reference Range Interpretation Comme nts LIPASE (test code = 2058) 22 U/L Cristian F AustinCOMPREHENSIVE METABOLIC [id number] 00:00:00* Test Item Value Reference Range Interpretation Comme nts GLUCOSE (test code = 2217) 128 MG/DL BUN (test code = 2208) 26 MG/DL CREATININE (test code = 2214) 0.92 MG/DL eGFR AMER. (test cod e = 09630) 81 ML/MIN/1.73 eGFR NON- AMER. (test code = 70761) 70 ML/MIN/1.73 CALC BUN/CREAT (test code = 2235) 28 RATIO SODIUM (test code = 2231) 138 MEQ/L POTASSIUM (test code = 2228) 4.4 MEQ/L CHLORIDE (test code = 2215) 94 MEQ/L CARBON DIOXIDE (test code = 2206) 31 MEQ/L CALCIUM (test code = 2209) 9.5 MG/DL PROTEIN, TOTAL (test code = 2229) 7.3 G/DL ALBUMIN (test code = 2201) 4.7 G/DL CALC GLOBULIN (test code = 2240) 2.6 G/DL CALC A/G RATIO (test code = 2234) 1.8 RATIO BILIRUBIN, TOTAL (test code = 2207) <0.2 MG/DL ALKALINE PHOSPHATASE (test code = 2204) 104 U/L AST (test code = 2218) 24 U/L ALT (test code = 2219) 29 U/L Cristian StollACUTE HEPATITIS [id number] 00:00:00* Test Item Value Reference Range Interpretation Comme nts HEPATITIS A IgM (test code = 66894) NON-REACTIVE HEPATITIS B CORE IgM (test c ode = 4644) NON-REACTIVE HEPATITIS B SURF AG (test co de = 2739) NON-REACTIVE HEPATITIS C ANTIBODY (test c ode = 4663) NON-REACTIVE INTERPRETATION HEPATITIS A: (test code = 2552) (NOTE) INTERPRETATION HEPATITIS B: (test code = 49546) (NOTE) INTERPRETATION HEPATITIS C: (test code = 46964) (NOTE) Cristian So [id number] 00:00:00* Test Item Value Reference Range Interpretation Comme nts AMYLASE (test code = 2205) 32 U/L Cristian StollCOMPREHENSIVE METABOLIC [id number] 00:00:00* Test Item Value Reference Range Interpretation Comme nts GLUCOSE (test code = 2217) 128 MG/DL BUN (test code = 2208) 26 MG/DL CREATININE (test code = 2214) 0.92 MG/DL eGFR AMER. (test cod e = 46187) 81 ML/MIN/1.73 eGFR NON- AMER. (test code = 95983) 70 ML/MIN/1.73 CALC BUN/CREAT (test code = 2235) 28 RATIO SODIUM (test code = 2231) 138 MEQ/L POTASSIUM (test code = 2228) 4.4 MEQ/L CHLORIDE (test code = 2215) 94 MEQ/L CARBON DIOXIDE (test code = 2206) 31 MEQ/L CALCIUM (test code = 2209) 9.5 MG/DL PROTEIN, TOTAL (test code = 2229) 7.3 G/DL ALBUMIN (test code = 2201) 4.7 G/DL CALC GLOBULIN (test code = 2240) 2.6 G/DL CALC A/G RATIO (test code = 2234) 1.8 RATIO BILIRUBIN, TOTAL (test code = 2207) <0.2 MG/DL ALKALINE PHOSPHATASE (test code = 2204) 104 U/L AST (test code = 2218) 24 U/L ALT (test code = 2219) 29 U/L Cristian So [id number] 00:00:00* Test Item Value Reference Range Interpretation Comme nts LIPASE (test code = 2058) 22 U/L Cristian StollCOMPREHENSIVE METABOLIC [id number] 00:00:00* Test Item Value Reference Range Interpretation Comme nts GLUCOSE (test code = 2217) 128 MG/DL BUN (test code = 2208) 26 MG/DL CREATININE (test code = 2214) 0.92 MG/DL eGFR AMER. (test cod e = 84307) 81 ML/MIN/1.73 eGFR NON- AMER. (test code = 40517) 70 ML/MIN/1.73 CALC BUN/CREAT (test code = 2235) 28 RATIO SODIUM (test code = 2231) 138 MEQ/L POTASSIUM (test code = 2228) 4.4 MEQ/L CHLORIDE (test code = 2215) 94 MEQ/L CARBON DIOXIDE (test code = 2206) 31 MEQ/L CALCIUM (test code = 2209) 9.5 MG/DL PROTEIN, TOTAL (test code = 2229) 7.3 G/DL ALBUMIN (test code = 2201) 4.7 G/DL CALC GLOBULIN (test code = 2240) 2.6 G/DL CALC A/G RATIO (test code = 2234) 1.8 RATIO BILIRUBIN, TOTAL (test code = 2207) <0.2 MG/DL ALKALINE PHOSPHATASE (test code = 2204) 104 U/L AST (test code = 2218) 24 U/L ALT (test code = 2219) 29 U/L Cristian StollACUTE HEPATITIS [id number] 00:00:00* Test Item Value Reference Range Interpretation Comme nts HEPATITIS A IgM (test code = 06910) NON-REACTIVE HEPATITIS B CORE IgM (test c ode = 4644) NON-REACTIVE HEPATITIS B SURF AG (test co de = 2849) NON-REACTIVE HEPATITIS C ANTIBODY (test c ode = 4632) NON-REACTIVE INTERPRETATION HEPATITIS A: (test code = 2552) (NOTE) INTERPRETATION HEPATITIS B: (test code = 34465) (NOTE) INTERPRETATION HEPATITIS C: (test code = 46199) (NOTE) Cristian So [id number] 00:00:00* Test Item Value Reference Range Interpretation Comme nts AMYLASE (test code = 2205) 32 U/L Cristian So [id number] 00:00:00* Test Item Value Reference Range Interpretation Comme nts LIPASE (test code = 2058) 22 U/L Cristian So AustinACUTE HEPATITIS [id number] 00:00:00* Test Item Value Reference Range Interpretation Comme nts HEPATITIS A IgM (test code = 94471) NON-REACTIVE HEPATITIS B CORE IgM (test c ode = 4644) NON-REACTIVE HEPATITIS B SURF AG (test co de = 2739) NON-REACTIVE HEPATITIS C ANTIBODY (test c ode = 4675) NON-REACTIVE INTERPRETATION HEPATITIS A: (test code = 2552) (NOTE) INTERPRETATION HEPATITIS B: (test code = 80884) (NOTE) INTERPRETATION HEPATITIS C: (test code = 71646) (NOTE) Cristian So [id number] 00:00:00* Test Item Value Reference Range Interpretation Comme nts AMYLASE (test code = 2205) 32 U/L Cristian So [id number] 00:00:00* Test Item Value Reference Range Interpretation Comme nts LIPASE (test code = 2058) 22 U/L Cristian StollCOMPREHENSIVE METABOLIC [id number] 00:00:00* Test Item Value Reference Range Interpretation Comme nts GLUCOSE (test code = 2217) 128 MG/DL BUN (test code = 2208) 26 MG/DL CREATININE (test code = 2214) 0.92 MG/DL eGFR AMER. (test cod e = 91146) 81 ML/MIN/1.73 eGFR NON- AMER. (test code = 46435) 70 ML/MIN/1.73 CALC BUN/CREAT (test code = 2235) 28 RATIO SODIUM (test code = 2231) 138 MEQ/L POTASSIUM (test code = 2228) 4.4 MEQ/L CHLORIDE (test code = 2215) 94 MEQ/L CARBON DIOXIDE (test code = 2206) 31 MEQ/L CALCIUM (test code = 2209) 9.5 MG/DL PROTEIN, TOTAL (test code = 2229) 7.3 G/DL ALBUMIN (test code = 2201) 4.7 G/DL CALC GLOBULIN (test code = 2240) 2.6 G/DL CALC A/G RATIO (test code = 2234) 1.8 RATIO BILIRUBIN, TOTAL (test code = 2207) <0.2 MG/DL ALKALINE PHOSPHATASE (test code = 2204) 104 U/L AST (test code = 2218) 24 U/L ALT (test code = 2219) 29 U/L Cristian StollACUTE HEPATITIS [id number] 00:00:00* Test Item Value Reference Range Interpretation Comme nts HEPATITIS A IgM (test code = 39578) NON-REACTIVE HEPATITIS B CORE IgM (test c ode = 4644) NON-REACTIVE HEPATITIS B SURF AG (test co de = 2739) NON-REACTIVE HEPATITIS C ANTIBODY (test c ode = 4675) NON-REACTIVE INTERPRETATION HEPATITIS A: (test code = 2552) (NOTE) INTERPRETATION HEPATITIS B: (test code = 81821) (NOTE) INTERPRETATION HEPATITIS C: (test code = 54803) (NOTE) Cristian [id number] 00:00:00* Test Item Value Reference Range Interpretation Comme nts AMYLASE (test code = 5) 32 U/L Cristian So [id number] 00:00:00* Test Item Value Reference Range Interpretation Comme nts LIPASE (test code = 2058) 22 U/L Cristian StollCOMPREHENSIVE METABOLIC [id number] 00:00:00* Test Item Value Reference Range Interpretation Comme nts GLUCOSE (test code = 2217) 128 MG/DL BUN (test code = 2208) 26 MG/DL CREATININE (test code = 2214) 0.92 MG/DL eGFR AMER. (test cod e = 62979) 81 ML/MIN/1.73 eGFR NON- AMER. (test code = 71195) 70 ML/MIN/1.73 CALC BUN/CREAT (test code = 2235) 28 RATIO SODIUM (test code = 2231) 138 MEQ/L POTASSIUM (test code = 2228) 4.4 MEQ/L CHLORIDE (test code = 2215) 94 MEQ/L CARBON DIOXIDE (test code = 2206) 31 MEQ/L CALCIUM (test code = 2209) 9.5 MG/DL PROTEIN, TOTAL (test code = 2229) 7.3 G/DL ALBUMIN (test code = 2201) 4.7 G/DL CALC GLOBULIN (test code = 2240) 2.6 G/DL CALC A/G RATIO (test code = 2234) 1.8 RATIO BILIRUBIN, TOTAL (test code = 2207) <0.2 MG/DL ALKALINE PHOSPHATASE (test code = 2204) 104 U/L AST (test code = 2218) 24 U/L ALT (test code = 2219) 29 U/L Cristian StollACUTE HEPATITIS [id number] 00:00:00* Test Item Value Reference Range Interpretation Comme nts HEPATITIS A IgM (test code = 99277) NON-REACTIVE HEPATITIS B CORE IgM (test c ode = 4644) NON-REACTIVE HEPATITIS B SURF AG (test co de = 1139) NON-REACTIVE HEPATITIS C ANTIBODY (test c ode = 4681) NON-REACTIVE INTERPRETATION HEPATITIS A: (test code = 2552) (NOTE) INTERPRETATION HEPATITIS B: (test code = 87977) (NOTE) INTERPRETATION HEPATITIS C: (test code = 74302) (NOTE) Cristian [id number] 00:00:00* Test Item Value Reference Range Interpretation Comme nts AMYLASE (test code = 5) 32 U/L Cristian [id number] 00:00:00* Test Item Value Reference Range Interpretation Comme nts LIPASE (test code = 2058) 22 U/L Cristian StollCOMPREHENSIVE METABOLIC [id number] 00:00:00* Test Item Value Reference Range Interpretation Comme nts GLUCOSE (test code = 2217) 128 MG/DL BUN (test code = 2208) 26 MG/DL CREATININE (test code = 2214) 0.92 MG/DL eGFR AMER. (test cod e = 46895) 81 ML/MIN/1.73 eGFR NON- AMER. (test code = 89834) 70 ML/MIN/1.73 CALC BUN/CREAT (test code = 2235) 28 RATIO SODIUM (test code = 2231) 138 MEQ/L POTASSIUM (test code = 2228) 4.4 MEQ/L CHLORIDE (test code = 2215) 94 MEQ/L CARBON DIOXIDE (test code = 2206) 31 MEQ/L CALCIUM (test code = 2209) 9.5 MG/DL PROTEIN, TOTAL (test code = 2229) 7.3 G/DL ALBUMIN (test code = 2201) 4.7 G/DL CALC GLOBULIN (test code = 2240) 2.6 G/DL CALC A/G RATIO (test code = 2234) 1.8 RATIO BILIRUBIN, TOTAL (test code = 2207) <0.2 MG/DL ALKALINE PHOSPHATASE (test code = 2204) 104 U/L AST (test code = 2218) 24 U/L ALT (test code = 2219) 29 U/L Cristian StollACUTE HEPATITIS [id number] 00:00:00* Test Item Value Reference Range Interpretation Comme nts HEPATITIS A IgM (test code = 13862) NON-REACTIVE HEPATITIS B CORE IgM (test c ode = 4644) NON-REACTIVE HEPATITIS B SURF AG (test co de = 2739) NON-REACTIVE HEPATITIS C ANTIBODY (test c ode = 4675) NON-REACTIVE INTERPRETATION HEPATITIS A: (test code = 2552) (NOTE) INTERPRETATION HEPATITIS B: (test code = 88403) (NOTE) INTERPRETATION HEPATITIS C: (test code = 51460) (NOTE) Cristian So [id number] 00:00:00* Test Item Value Reference Range Interpretation Comme nts AMYLASE (test code = 5) 32 U/L Cristian [id number] 00:00:00* Test Item Value Reference Range Interpretation Comme nts LIPASE (test code = 8) 22 U/L Cristian StollCOMPREHENSIVE METABOLIC [id number] 00:00:00* Test Item Value Reference Range Interpretation Comme nts GLUCOSE (test code = 2217) 128 MG/DL BUN (test code = 2208) 26 MG/DL CREATININE (test code = 2214) 0.92 MG/DL eGFR AMER. (test cod e = 56160) 81 ML/MIN/1.73 eGFR NON- AMER. (test code = 60394) 70 ML/MIN/1.73 CALC BUN/CREAT (test code = 2235) 28 RATIO SODIUM (test code = 2231) 138 MEQ/L POTASSIUM (test code = 2228) 4.4 MEQ/L CHLORIDE (test code = 2215) 94 MEQ/L CARBON DIOXIDE (test code = 2206) 31 MEQ/L CALCIUM (test code = 2209) 9.5 MG/DL PROTEIN, TOTAL (test code = 2229) 7.3 G/DL ALBUMIN (test code = 2201) 4.7 G/DL CALC GLOBULIN (test code = 2240) 2.6 G/DL CALC A/G RATIO (test code = 2234) 1.8 RATIO BILIRUBIN, TOTAL (test code = 2207) <0.2 MG/DL ALKALINE PHOSPHATASE (test code = 2204) 104 U/L AST (test code = 2218) 24 U/L ALT (test code = 2219) 29 U/L Cristian StollACUTE HEPATITIS [id number] 00:00:00* Test Item Value Reference Range Interpretation Comme nts HEPATITIS A IgM (test code = 16981) NON-REACTIVE HEPATITIS B CORE IgM (test c ode = 4644) NON-REACTIVE HEPATITIS B SURF AG (test co de = 2739) NON-REACTIVE HEPATITIS C ANTIBODY (test c ode = 4675) NON-REACTIVE INTERPRETATION HEPATITIS A: (test code = 2552) (NOTE) INTERPRETATION HEPATITIS B: (test code = 97504) (NOTE) INTERPRETATION HEPATITIS C: (test code = 14897) (NOTE) Cristian So [id number] 00:00:00* Test Item Value Reference Range Interpretation Comme nts AMYLASE (test code = 2205) 32 U/L Cristian [id number] 00:00:00* Test Item Value Reference Range Interpretation Comme nts LIPASE (test code = 2058) 22 U/L Cristian StollCOMPREHENSIVE METABOLIC [id number] 00:00:00* Test Item Value Reference Range Interpretation Comme nts GLUCOSE (test code = 2217) 128 MG/DL BUN (test code = 2208) 26 MG/DL CREATININE (test code = 2214) 0.92 MG/DL eGFR AMER. (test cod e = 47830) 81 ML/MIN/1.73 eGFR NON- AMER. (test code = 40767) 70 ML/MIN/1.73 CALC BUN/CREAT (test code = 2235) 28 RATIO SODIUM (test code = 2231) 138 MEQ/L POTASSIUM (test code = 2228) 4.4 MEQ/L CHLORIDE (test code = 2215) 94 MEQ/L CARBON DIOXIDE (test code = 2206) 31 MEQ/L CALCIUM (test code = 2209) 9.5 MG/DL PROTEIN, TOTAL (test code = 2229) 7.3 G/DL ALBUMIN (test code = 2201) 4.7 G/DL CALC GLOBULIN (test code = 2240) 2.6 G/DL CALC A/G RATIO (test code = 2234) 1.8 RATIO BILIRUBIN, TOTAL (test code = 2207) <0.2 MG/DL ALKALINE PHOSPHATASE (test code = 2204) 104 U/L AST (test code = 2218) 24 U/L ALT (test code = 2219) 29 U/L Cristian StollACUTE HEPATITIS [id number] 00:00:00* Test Item Value Reference Range Interpretation Comme nts HEPATITIS A IgM (test code = 12273) NON-REACTIVE HEPATITIS B CORE IgM (test c ode = 4644) NON-REACTIVE HEPATITIS B SURF AG (test co de = 2739) NON-REACTIVE HEPATITIS C ANTIBODY (test c ode = 4675) NON-REACTIVE INTERPRETATION HEPATITIS A: (test code = 2552) (NOTE) INTERPRETATION HEPATITIS B: (test code = 61329) (NOTE) INTERPRETATION HEPATITIS C: (test code = 60292) (NOTE) Cristian So [id number] 00:00:00* Test Item Value Reference Range Interpretation Comme nts AMYLASE (test code = 2205) 32 U/L Cristian [id number] 00:00:00* Test Item Value Reference Range Interpretation Comme nts LIPASE (test code = 2058) 22 U/L Cristian StollCOMPREHENSIVE METABOLIC [id number] 00:00:00* Test Item Value Reference Range Interpretation Comme nts GLUCOSE (test code = 2217) 128 MG/DL BUN (test code = 2208) 26 MG/DL CREATININE (test code = 2214) 0.92 MG/DL eGFR AMER. (test cod e = 13551) 81 ML/MIN/1.73 eGFR NON- AMER. (test code = 61611) 70 ML/MIN/1.73 CALC BUN/CREAT (test code = 2235) 28 RATIO SODIUM (test code = 2231) 138 MEQ/L POTASSIUM (test code = 2228) 4.4 MEQ/L CHLORIDE (test code = 2215) 94 MEQ/L CARBON DIOXIDE (test code = 2206) 31 MEQ/L CALCIUM (test code = 2209) 9.5 MG/DL PROTEIN, TOTAL (test code = 2229) 7.3 G/DL ALBUMIN (test code = 2201) 4.7 G/DL CALC GLOBULIN (test code = 2240) 2.6 G/DL CALC A/G RATIO (test code = 2234) 1.8 RATIO BILIRUBIN, TOTAL (test code = 2207) <0.2 MG/DL ALKALINE PHOSPHATASE (test code = 2204) 104 U/L AST (test code = 2218) 24 U/L ALT (test code = 2219) 29 U/L Cristian StollCOMPREHENSIVE METABOLIC [id number] 00:00:00* Test Item Value Reference Range Interpretation Comme nts GLUCOSE (test code = 2217) 128 MG/DL BUN (test code = 2208) 26 MG/DL CREATININE (test code = 2214) 0.92 MG/DL eGFR AMER. (test cod e = 17378) 81 ML/MIN/1.73 eGFR NON- AMER. (test code = 41505) 70 ML/MIN/1.73 CALC BUN/CREAT (test code = 2235) 28 RATIO SODIUM (test code = 2231) 138 MEQ/L POTASSIUM (test code = 2228) 4.4 MEQ/L CHLORIDE (test code = 2215) 94 MEQ/L CARBON DIOXIDE (test code = 2206) 31 MEQ/L CALCIUM (test code = 2209) 9.5 MG/DL PROTEIN, TOTAL (test code = 2229) 7.3 G/DL ALBUMIN (test code = 2201) 4.7 G/DL CALC GLOBULIN (test code = 2240) 2.6 G/DL CALC A/G RATIO (test code = 2234) 1.8 RATIO BILIRUBIN, TOTAL (test code = 2207) <0.2 MG/DL ALKALINE PHOSPHATASE (test code = 2204) 104 U/L AST (test code = 2218) 24 U/L ALT (test code = 2219) 29 U/L COMPREHENSIVE METABOLIC [id number] 00:00:00* Test Item Value Reference Range Interpretation Comme nts GLUCOSE (test code = 2217) 121 MG/DL BUN (test code = 2208) 40 MG/DL CREATININE (test code = 2214) 1.48 MG/DL eGFR AMER. (test cod e = 99993) 45 ML/MIN/1.73 eGFR NON- AMER. (test code = 33533) 39 ML/MIN/1.73 CALC BUN/CREAT (test code = 2235) 27 RATIO SODIUM (test code = 2231) 143 MEQ/L POTASSIUM (test code = 2228) 5.3 MEQ/L CHLORIDE (test code = 2215) 100 MEQ/L CARBON DIOXIDE (test code = 2206) 27 MEQ/L CALCIUM (test code = 2209) 9.8 MG/DL PROTEIN, TOTAL (test code = 2229) 8.1 G/DL ALBUMIN (test code = 2201) 5.3 G/DL CALC GLOBULIN (test code = 2240) 2.8 G/DL CALC A/G RATIO (test code = 2234) 1.9 RATIO BILIRUBIN, TOTAL (test code = 2207) 0.2 MG/DL ALKALINE PHOSPHATASE (test code = 2204) 99 U/L AST (test code = 2218) 15 U/L ALT (test code = 2219) 20 U/L [id number] 00:00:00* Test Item Value Reference Range Interpretation Comme nts TSH, THIRD GENERATION (test code = 2821) 4.890 UIU/ML COMPREHENSIVE METABOLIC [id number] 00:00:00* Test Item Value Reference Range Interpretation Comme nts GLUCOSE (test code = 2217) 121 MG/DL BUN (test code = 2208) 40 MG/DL CREATININE (test code = 2214) 1.48 MG/DL eGFR AMER. (test cod e = 82913) 45 ML/MIN/1.73 eGFR NON- AMER. (test code = 62202) 39 ML/MIN/1.73 CALC BUN/CREAT (test code = 2235) 27 RATIO SODIUM (test code = 2231) 143 MEQ/L POTASSIUM (test code = 2228) 5.3 MEQ/L CHLORIDE (test code = 2215) 100 MEQ/L CARBON DIOXIDE (test code = 2206) 27 MEQ/L CALCIUM (test code = 2209) 9.8 MG/DL PROTEIN, TOTAL (test code = 2229) 8.1 G/DL ALBUMIN (test code = 2201) 5.3 G/DL CALC GLOBULIN (test code = 2240) 2.8 G/DL CALC A/G RATIO (test code = 2234) 1.9 RATIO BILIRUBIN, TOTAL (test code = 2207) 0.2 MG/DL ALKALINE PHOSPHATASE (test code = 2204) 99 U/L AST (test code = 2218) 15 U/L ALT (test code = 2219) 20 U/L [id number] 00:00:00* Test Item Value Reference Range Interpretation Comme nts TSH, THIRD GENERATION (test code = 2821) 4.890 UIU/ML Cristian [id number] 00:00:00* Test Item Value Reference Range Interpretation Comme nts TSH, THIRD GENERATION (test code = 2821) 4.890 UIU/ML COMPREHENSIVE METABOLIC [id number] 00:00:00* Test Item Value Reference Range Interpretation Comme nts GLUCOSE (test code = 2217) 121 MG/DL BUN (test code = 2208) 40 MG/DL CREATININE (test code = 2214) 1.48 MG/DL eGFR AMER. (test cod e = 46087) 45 ML/MIN/1.73 eGFR NON- AMER. (test code = 36098) 39 ML/MIN/1.73 CALC BUN/CREAT (test code = 2235) 27 RATIO SODIUM (test code = 2231) 143 MEQ/L POTASSIUM (test code = 2228) 5.3 MEQ/L CHLORIDE (test code = 2215) 100 MEQ/L CARBON DIOXIDE (test code = 2206) 27 MEQ/L CALCIUM (test code = 2209) 9.8 MG/DL PROTEIN, TOTAL (test code = 2229) 8.1 G/DL ALBUMIN (test code = 2201) 5.3 G/DL CALC GLOBULIN (test code = 2240) 2.8 G/DL CALC A/G RATIO (test code = 2234) 1.9 RATIO BILIRUBIN, TOTAL (test code = 2207) 0.2 MG/DL ALKALINE PHOSPHATASE (test code = 2204) 99 U/L AST (test code = 2218) 15 U/L ALT (test code = 2219) 20 U/L COMPREHENSIVE METABOLIC [id number] 00:00:00* Test Item Value Reference Range Interpretation Comme nts GLUCOSE (test code = 2217) 121 MG/DL BUN (test code = 2208) 40 MG/DL CREATININE (test code = 2214) 1.48 MG/DL eGFR AMER. (test cod e = 89772) 45 ML/MIN/1.73 eGFR NON- AMER. (test code = 07208) 39 ML/MIN/1.73 CALC BUN/CREAT (test code = 2235) 27 RATIO SODIUM (test code = 2231) 143 MEQ/L POTASSIUM (test code = 2228) 5.3 MEQ/L CHLORIDE (test code = 2215) 100 MEQ/L CARBON DIOXIDE (test code = 2206) 27 MEQ/L CALCIUM (test code = 2209) 9.8 MG/DL PROTEIN, TOTAL (test code = 2229) 8.1 G/DL ALBUMIN (test code = 2201) 5.3 G/DL CALC GLOBULIN (test code = 2240) 2.8 G/DL CALC A/G RATIO (test code = 2234) 1.9 RATIO BILIRUBIN, TOTAL (test code = 2207) 0.2 MG/DL ALKALINE PHOSPHATASE (test code = 2204) 99 U/L AST (test code = 2218) 15 U/L ALT (test code = 2219) 20 U/L Cristian [id number] 00:00:00* Test Item Value Reference Range Interpretation Comme nts TSH, THIRD GENERATION (test code = 2821) 4.890 UIU/ML COMPREHENSIVE METABOLIC [id number] 00:00:00* Test Item Value Reference Range Interpretation Comme nts GLUCOSE (test code = 2217) 121 MG/DL BUN (test code = 2208) 40 MG/DL CREATININE (test code = 2214) 1.48 MG/DL eGFR AMER. (test cod e = 17787) 45 ML/MIN/1.73 eGFR NON- AMER. (test code = 20497) 39 ML/MIN/1.73 CALC BUN/CREAT (test code = 2235) 27 RATIO SODIUM (test code = 2231) 143 MEQ/L POTASSIUM (test code = 2228) 5.3 MEQ/L CHLORIDE (test code = 2215) 100 MEQ/L CARBON DIOXIDE (test code = 2206) 27 MEQ/L CALCIUM (test code = 2209) 9.8 MG/DL PROTEIN, TOTAL (test code = 2229) 8.1 G/DL ALBUMIN (test code = 2201) 5.3 G/DL CALC GLOBULIN (test code = 2240) 2.8 G/DL CALC A/G RATIO (test code = 2234) 1.9 RATIO BILIRUBIN, TOTAL (test code = 2207) 0.2 MG/DL ALKALINE PHOSPHATASE (test code = 2204) 99 U/L AST (test code = 2218) 15 U/L ALT (test code = 2219) 20 U/L [id number] 00:00:00* Test Item Value Reference Range Interpretation Comme nts TSH, THIRD GENERATION (test code = 2821) 4.890 UIU/ML Cristian So AustinCOMPREHENSIVE METABOLIC [id number] 00:00:00* Test Item Value Reference Range Interpretation Comme nts GLUCOSE (test code = 2217) 121 MG/DL BUN (test code = 2208) 40 MG/DL CREATININE (test code = 2214) 1.48 MG/DL eGFR AMER. (test cod e = 21722) 45 ML/MIN/1.73 eGFR NON- AMER. (test code = 09385) 39 ML/MIN/1.73 CALC BUN/CREAT (test code = 2235) 27 RATIO SODIUM (test code = 2231) 143 MEQ/L POTASSIUM (test code = 2228) 5.3 MEQ/L CHLORIDE (test code = 2215) 100 MEQ/L CARBON DIOXIDE (test code = 2206) 27 MEQ/L CALCIUM (test code = 2209) 9.8 MG/DL PROTEIN, TOTAL (test code = 2229) 8.1 G/DL ALBUMIN (test code = 2201) 5.3 G/DL CALC GLOBULIN (test code = 2240) 2.8 G/DL CALC A/G RATIO (test code = 2234) 1.9 RATIO BILIRUBIN, TOTAL (test code = 2207) 0.2 MG/DL ALKALINE PHOSPHATASE (test code = 2204) 99 U/L AST (test code = 2218) 15 U/L ALT (test code = 2219) 20 U/L Cristian So [id number] 00:00:00* Test Item Value Reference Range Interpretation Comme nts TSH, THIRD GENERATION (test code = 2821) 4.890 UIU/ML Cristian F AustinCOMPREHENSIVE METABOLIC [id number] 00:00:00* Test Item Value Reference Range Interpretation Comme nts GLUCOSE (test code = 2217) 121 MG/DL BUN (test code = 2208) 40 MG/DL CREATININE (test code = 2214) 1.48 MG/DL eGFR AMER. (test cod e = 45436) 45 ML/MIN/1.73 eGFR NON- AMER. (test code = 20215) 39 ML/MIN/1.73 CALC BUN/CREAT (test code = 2235) 27 RATIO SODIUM (test code = 2231) 143 MEQ/L POTASSIUM (test code = 2228) 5.3 MEQ/L CHLORIDE (test code = 2215) 100 MEQ/L CARBON DIOXIDE (test code = 2206) 27 MEQ/L CALCIUM (test code = 2209) 9.8 MG/DL PROTEIN, TOTAL (test code = 2229) 8.1 G/DL ALBUMIN (test code = 2201) 5.3 G/DL CALC GLOBULIN (test code = 2240) 2.8 G/DL CALC A/G RATIO (test code = 2234) 1.9 RATIO BILIRUBIN, TOTAL (test code = 2207) 0.2 MG/DL ALKALINE PHOSPHATASE (test code = 2204) 99 U/L AST (test code = 2218) 15 U/L ALT (test code = 2219) 20 U/L [facility]ian [facility] [id number] 00:00:00* Test Item Value Reference Range Interpretation Comme nts GLUCOSE (test code = 2217) 121 MG/DL BUN (test code = 2208) 40 MG/DL CREATININE (test code = 2214) 1.48 MG/DL eGFR AMER. (test cod e = 27047) 45 ML/MIN/1.73 eGFR NON- AMER. (test code = 28429) 39 ML/MIN/1.73 CALC BUN/CREAT (test code = 2235) 27 RATIO SODIUM (test code = 2231) 143 MEQ/L POTASSIUM (test code = 2228) 5.3 MEQ/L CHLORIDE (test code = 2215) 100 MEQ/L CARBON DIOXIDE (test code = 2206) 27 MEQ/L CALCIUM (test code = 2209) 9.8 MG/DL PROTEIN, TOTAL (test code = 2229) 8.1 G/DL ALBUMIN (test code = 2201) 5.3 G/DL CALC GLOBULIN (test code = 2240) 2.8 G/DL CALC A/G RATIO (test code = 2234) 1.9 RATIO BILIRUBIN, TOTAL (test code = 2207) 0.2 MG/DL ALKALINE PHOSPHATASE (test code = 2204) 99 U/L AST (test code = 2218) 15 U/L ALT (test code = 2219) 20 U/L Cristian So [id number] 00:00:00* Test Item Value Reference Range Interpretation Comme nts TSH, THIRD GENERATION (test code = 2821) 4.890 UIU/ML Cristian So [place] [id number] 00:00:00* Test Item Value Reference Range Interpretation Comme nts GLUCOSE (test code = 2217) 121 MG/DL BUN (test code = 2208) 40 MG/DL CREATININE (test code = 2214) 1.48 MG/DL eGFR AMER. (test cod e = 59472) 45 ML/MIN/1.73 eGFR NON- AMER. (test code = 67020) 39 ML/MIN/1.73 CALC BUN/CREAT (test code = 2235) 27 RATIO SODIUM (test code = 2231) 143 MEQ/L POTASSIUM (test code = 2228) 5.3 MEQ/L CHLORIDE (test code = 2215) 100 MEQ/L CARBON DIOXIDE (test code = 2206) 27 MEQ/L CALCIUM (test code = 2209) 9.8 MG/DL PROTEIN, TOTAL (test code = 2229) 8.1 G/DL ALBUMIN (test code = 2201) 5.3 G/DL CALC GLOBULIN (test code = 2240) 2.8 G/DL CALC A/G RATIO (test code = 2234) 1.9 RATIO BILIRUBIN, TOTAL (test code = 2207) 0.2 MG/DL ALKALINE PHOSPHATASE (test code = 2204) 99 U/L AST (test code = 2218) 15 U/L ALT (test code = 2219) 20 U/L Cristian So [id number] 00:00:00* Test Item Value Reference Range Interpretation Comme nts TSH, THIRD GENERATION (test code = 2821) 4.890 UIU/ML [place]ian [place] [id number] 00:00:00* Test Item Value Reference Range Interpretation Comme nts GLUCOSE (test code = 2217) 121 MG/DL BUN (test code = 2208) 40 MG/DL CREATININE (test code = 2214) 1.48 MG/DL eGFR AMER. (test cod e = 21690) 45 ML/MIN/1.73 eGFR NON- AMER. (test code = 98831) 39 ML/MIN/1.73 CALC BUN/CREAT (test code = 2235) 27 RATIO SODIUM (test code = 2231) 143 MEQ/L POTASSIUM (test code = 2228) 5.3 MEQ/L CHLORIDE (test code = 2215) 100 MEQ/L CARBON DIOXIDE (test code = 2206) 27 MEQ/L CALCIUM (test code = 2209) 9.8 MG/DL PROTEIN, TOTAL (test code = 2229) 8.1 G/DL ALBUMIN (test code = 2201) 5.3 G/DL CALC GLOBULIN (test code = 2240) 2.8 G/DL CALC A/G RATIO (test code = 2234) 1.9 RATIO BILIRUBIN, TOTAL (test code = 2207) 0.2 MG/DL ALKALINE PHOSPHATASE (test code = 2204) 99 U/L AST (test code = 2218) 15 U/L ALT (test code = 2219) 20 U/L Cristian So [id number] 00:00:00* Test Item Value Reference Range Interpretation Comme nts TSH, THIRD GENERATION (test code = 2821) 4.890 UIU/ML Cristian [place] [id number] 00:00:00* Test Item Value Reference Range Interpretation Comme nts GLUCOSE (test code = 2217) 121 MG/DL BUN (test code = 2208) 40 MG/DL CREATININE (test code = 2214) 1.48 MG/DL eGFR AMER. (test cod e = 58922) 45 ML/MIN/1.73 eGFR NON- AMER. (test code = 42111) 39 ML/MIN/1.73 CALC BUN/CREAT (test code = 2235) 27 RATIO SODIUM (test code = 2231) 143 MEQ/L POTASSIUM (test code = 2228) 5.3 MEQ/L CHLORIDE (test code = 2215) 100 MEQ/L CARBON DIOXIDE (test code = 2206) 27 MEQ/L CALCIUM (test code = 2209) 9.8 MG/DL PROTEIN, TOTAL (test code = 2229) 8.1 G/DL ALBUMIN (test code = 2201) 5.3 G/DL CALC GLOBULIN (test code = 2240) 2.8 G/DL CALC A/G RATIO (test code = 2234) 1.9 RATIO BILIRUBIN, TOTAL (test code = 2207) 0.2 MG/DL ALKALINE PHOSPHATASE (test code = 2204) 99 U/L AST (test code = 2218) 15 U/L ALT (test code = 2219) 20 U/L Cristian So [id number] 00:00:00* Test Item Value Reference Range Interpretation Comme [facility] TSH, THIRD GENERATION (test code = 2821) 4.890 UIU/ML Cristian So [id number] 00:00:00* Test Item Value Reference Range Interpretation Comme [facility] TSH, THIRD GENERATION (test code = 2821) 4.890 UIU/ML Cristian So [place] [id number] 00:00:00* Test Item Value Reference Range Interpretation Comme [facility] GLUCOSE (test code = 2217) 121 MG/DL BUN (test code = 2208) 40 MG/DL CREATININE (test code = 2214) 1.48 MG/DL eGFR AMER. (test cod e = 47073) 45 ML/MIN/1.73 eGFR NON- AMER. (test code = 47151) 39 ML/MIN/1.73 CALC BUN/CREAT (test code = 2235) 27 RATIO SODIUM (test code = 2231) 143 MEQ/L POTASSIUM (test code = 2228) 5.3 MEQ/L CHLORIDE (test code = 2215) 100 MEQ/L CARBON DIOXIDE (test code = 2206) 27 MEQ/L CALCIUM (test code = 2209) 9.8 MG/DL PROTEIN, TOTAL (test code = 2229) 8.1 G/DL ALBUMIN (test code = 2201) 5.3 G/DL CALC GLOBULIN (test code = 2240) 2.8 G/DL CALC A/G RATIO (test code = 2234) 1.9 RATIO BILIRUBIN, TOTAL (test code = 2207) 0.2 MG/DL ALKALINE PHOSPHATASE (test code = 2204) 99 U/L AST (test code = 2218) 15 U/L ALT (test code = 2219) 20 U/L Cristian So [id number] 00:00:00* Test Item Value Reference Range Interpretation Comme nts TSH, THIRD GENERATION (test code = 2821) 4.890 UIU/ML Cristian StollCOMPREHENSIVE METABOLIC [id number] 00:00:00* Test Item Value Reference Range Interpretation Comme nts GLUCOSE (test code = 2217) 121 MG/DL BUN (test code = 2208) 40 MG/DL CREATININE (test code = 2214) 1.48 MG/DL eGFR AMER. (test cod e = 43796) 45 ML/MIN/1.73 eGFR NON- AMER. (test code = 15740) 39 ML/MIN/1.73 CALC BUN/CREAT (test code = 2235) 27 RATIO SODIUM (test code = 2231) 143 MEQ/L POTASSIUM (test code = 2228) 5.3 MEQ/L CHLORIDE (test code = 2215) 100 MEQ/L CARBON DIOXIDE (test code = 2206) 27 MEQ/L CALCIUM (test code = 2209) 9.8 MG/DL PROTEIN, TOTAL (test code = 2229) 8.1 G/DL ALBUMIN (test code = 2201) 5.3 G/DL CALC GLOBULIN (test code = 2240) 2.8 G/DL CALC A/G RATIO (test code = 2234) 1.9 RATIO BILIRUBIN, TOTAL (test code = 2207) 0.2 MG/DL ALKALINE PHOSPHATASE (test code = 2204) 99 U/L AST (test code = 2218) 15 U/L ALT (test code = 2219) 20 U/L Cristian So [id number] 00:00:00* Test Item Value Reference Range Interpretation Comme nts TSH, THIRD GENERATION (test code = 2821) 4.890 UIU/ML CBC W/AUTO [id number] 00:00:00* Test Item Value Reference Range Interpretation Comme nts WBC (test code = 1001) 8.3 K/UL [...] (test code = 1015) 378 K/UL HEMOGLOBIN [id number] 00:00:00* Test Item Value Reference Range Interpretation Comme nts HEMOGLOBIN A1c (test code = 37507) 6.4 % [id number] 00:00:00* Test Item Value Reference Range Interpretation Comme nts TSH (test code = 2821) 5.290 UIU/ML LIPID [id number] 00:00:00* Test Item Value Reference Range Interpretation Comme nts CHOLESTEROL (test code = 2210) 261 MG/DL TRIGLYCERIDES (test code = 2232) 165 MG/DL HDL CHOLESTEROL (test code = 2220) 58 MG/DL CALC LDL CHOL (test code = 2237) 170 MG/DL RISK RATIO LDL/HDL (test cod e = 2238) 2.93 RATIO CBC W/AUTO [id number] 00:00:00* Test Item Value Reference Range Interpretation Comme nts WBC (test code = 1001) 8.3 K/UL [...] (test code = 1015) 378 K/UL HEMOGLOBIN [id number] 00:00:00* Test Item Value Reference Range Interpretation Comme nts HEMOGLOBIN A1c (test code = 22889) 6.4 % [id number] 00:00:00* Test Item Value Reference Range Interpretation Comme nts TSH (test code = 2821) 5.290 UIU/ML LIPID [id number] 00:00:00* Test Item Value Reference Range Interpretation Comme nts CHOLESTEROL (test code = 2210) 261 MG/DL TRIGLYCERIDES (test code = 2232) 165 MG/DL HDL CHOLESTEROL (test code = 2220) 58 MG/DL CALC LDL CHOL (test code = 2237) 170 MG/DL RISK RATIO LDL/HDL (test cod e = 2238) 2.93 RATIO LIPID [id number] 00:00:00* Test Item Value Reference Range Interpretation Comme nts CHOLESTEROL (test code = 2210) 261 MG/DL TRIGLYCERIDES (test code = 2232) 165 MG/DL HDL CHOLESTEROL (test code = 2220) 58 MG/DL CALC LDL CHOL (test code = 2237) 170 MG/DL RISK RATIO LDL/HDL (test cod e = 2238) 2.93 RATIO Cristian So [employer] S.AC W/AUTO [id number] 00:00:00* Test Item Value Reference Range Interpretation Comme nts WBC (test code = 1001) 8.3 K/UL [...] COUNT (test code = 1015) 378 K/UL Cristian So EPSCBC W/AUTO [id number] 00:00:00* Test Item Value Reference Range Interpretation Comme nts WBC (test code = 1001) 8.3 K/UL [...] (test code = 1015) 378 K/UL HEMOGLOBIN [id number] 00:00:00* Test Item Value Reference Range Interpretation Comme nts HEMOGLOBIN A1c (test code = 17598) 6.4 % [id number] 00:00:00* Test Item Value Reference Range Interpretation Comme nts TSH (test code = 2821) 5.290 UIU/ML LIPID [id number] 00:00:00* Test Item Value Reference Range Interpretation Comme nts CHOLESTEROL (test code = 2210) 261 MG/DL TRIGLYCERIDES (test code = 2232) 165 MG/DL HDL CHOLESTEROL (test code = 2220) 58 MG/DL CALC LDL CHOL (test code = 2237) 170 MG/DL RISK RATIO LDL/HDL (test cod e = 2238) 2.93 RATIO CBC W/AUTO [id number] 00:00:00* Test Item Value Reference Range Interpretation Comme nts WBC (test code = 1001) 8.3 K/UL [...] (test code = 1015) 378 K/UL HEMOGLOBIN [id number] 00:00:00* Test Item Value Reference Range Interpretation Comme nts HEMOGLOBIN A1c (test code = 19548) 6.4 % Cristian StollHEMOGLOBIN [id number] 00:00:00* Test Item Value Reference Range Interpretation Comme nts HEMOGLOBIN A1c (test code = 61755) 6.4 % [id number] 00:00:00* Test Item Value Reference Range Interpretation Comme nts TSH (test code = 2821) 5.290 UIU/ML [id number] 00:00:00* Test Item Value Reference Range Interpretation Comme nts TSH (test code = 2821) 5.290 UIU/ML Cristian StollLIPID [id number] 00:00:00* Test Item Value Reference Range Interpretation Comme nts CHOLESTEROL (test code = 2210) 261 MG/DL TRIGLYCERIDES (test code = 2232) 165 MG/DL HDL CHOLESTEROL (test code = 2220) 58 MG/DL CALC LDL CHOL (test code = 2237) 170 MG/DL RISK RATIO LDL/HDL (test cod e = 2238) 2.93 RATIO Cristian StollLIPID [id number] 00:00:00* Test Item Value Reference Range Interpretation Comme nts CHOLESTEROL (test code = 2210) 261 MG/DL TRIGLYCERIDES (test code = 2232) 165 MG/DL HDL CHOLESTEROL (test code = 2220) 58 MG/DL CALC LDL CHOL (test code = 2237) 170 MG/DL RISK RATIO LDL/HDL (test cod e = 2238) 2.93 RATIO Cristian StollCBC W/AUTO [id number] 00:00:00* Test Item Value Reference Range Interpretation Comme nts WBC (test code = 1001) 8.3 K/UL [...] COUNT (test code = 1015) 378 K/UL Cristian StollHEMOGLOBIN [id number] 00:00:00* Test Item Value Reference Range Interpretation Comme nts HEMOGLOBIN A1c (test code = 07107) 6.4 % Cristian So [id number] 00:00:00* Test Item Value Reference Range Interpretation Comme nts TSH (test code = 2821) 5.290 UIU/ML Cristian StollLIPID [id number] 00:00:00* Test Item Value Reference Range Interpretation Comme nts CHOLESTEROL (test code = 2210) 261 MG/DL TRIGLYCERIDES (test code = 2232) 165 MG/DL HDL CHOLESTEROL (test code = 2220) 58 MG/DL CALC LDL CHOL (test code = 2237) 170 MG/DL RISK RATIO LDL/HDL (test cod e = 2238) 2.93 RATIO Cristian StollCBC W/AUTO [id number] 00:00:00* Test Item Value Reference Range Interpretation Comme nts WBC (test code = 1001) 8.3 K/UL [...] COUNT (test code = 1015) 378 K/UL Cristian F AustinHEMOGLOBIN [id number] 00:00:00* Test Item Value Reference Range Interpretation Comme nts HEMOGLOBIN A1c (test code = 28878) 6.4 % Cristian So [id number] 00:00:00* Test Item Value Reference Range Interpretation Comme nts TSH (test code = 2821) 5.290 UIU/ML Cristian StollCBC W/AUTO [id number] 00:00:00* Test Item Value Reference Range Interpretation Comme nts WBC (test code = 1001) 8.3 K/UL [...] COUNT (test code = 1015) 378 K/UL Cristian StollHEMOGLOBIN [id number] 00:00:00* Test Item Value Reference Range Interpretation Comme nts HEMOGLOBIN A1c (test code = 88049) 6.4 % Cristian So [id number] 00:00:00* Test Item Value Reference Range Interpretation Comme nts TSH (test code = 2821) 5.290 UIU/ML Cristian StollLIPID [id number] 00:00:00* Test Item Value Reference Range Interpretation Comme nts CHOLESTEROL (test code = 2210) 261 MG/DL TRIGLYCERIDES (test code = 2232) 165 MG/DL HDL CHOLESTEROL (test code = 2220) 58 MG/DL CALC LDL CHOL (test code = 2237) 170 MG/DL RISK RATIO LDL/HDL (test cod e = 2238) 2.93 RATIO Cristian StollCBC W/AUTO [id number] 00:00:00* Test Item Value Reference Range Interpretation Comme nts WBC (test code = 1001) 8.3 K/UL [...] COUNT (test code = 1015) 378 K/UL Cristian StollHEMOGLOBIN [id number] 00:00:00* Test Item Value Reference Range Interpretation Comme [facility] HEMOGLOBIN A1c (test code = 30284) 6.4 % Cristian So [id number] 00:00:00* Test Item Value Reference Range Interpretation Comme nts TSH (test code = 2821) 5.290 UIU/ML Cristian StollLIPID [id number] 00:00:00* Test Item Value Reference Range Interpretation Comme nts CHOLESTEROL (test code = 2210) 261 MG/DL TRIGLYCERIDES (test code = 2232) 165 MG/DL HDL CHOLESTEROL (test code = 2220) 58 MG/DL CALC LDL CHOL (test code = 2237) 170 MG/DL RISK RATIO LDL/HDL (test cod e = 2238) 2.93 RATIO Cristian StollCBC W/AUTO [id number] 00:00:00* Test Item Value Reference Range Interpretation Comme nts WBC (test code = 1001) 8.3 K/UL [...] COUNT (test code = 1015) 378 K/UL Cristian StollHEMOGLOBIN [id number] 00:00:00* Test Item Value Reference Range Interpretation Comme nts HEMOGLOBIN A1c (test code = 87901) 6.4 % Cristian So [id number] 00:00:00* Test Item Value Reference Range Interpretation Comme nts TSH (test code = 2821) 5.290 UIU/ML Cristian So AustinLIPID [id number] 00:00:00* Test Item Value Reference Range Interpretation Comme nts CHOLESTEROL (test code = 2210) 261 MG/DL TRIGLYCERIDES (test code = 2232) 165 MG/DL HDL CHOLESTEROL (test code = 2220) 58 MG/DL CALC LDL CHOL (test code = 2237) 170 MG/DL RISK RATIO LDL/HDL (test cod e = 2238) 2.93 RATIO Cristian StollCBC W/AUTO [id number] 00:00:00* Test Item Value Reference Range Interpretation Comme nts WBC (test code = 1001) 8.3 K/UL [...] COUNT (test code = 1015) 378 K/UL Cristian StollHEMOGLOBIN [id number] 00:00:00* Test Item Value Reference Range Interpretation Comme [facility] HEMOGLOBIN A1c (test code = 89740) 6.4 % Cristian So [id number] 00:00:00* Test Item Value Reference Range Interpretation Comme nts TSH (test code = 2821) 5.290 UIU/ML Cristian StollLIPID [id number] 00:00:00* Test Item Value Reference Range Interpretation Comme nts CHOLESTEROL (test code = 2210) 261 MG/DL TRIGLYCERIDES (test code = 2232) 165 MG/DL HDL CHOLESTEROL (test code = 2220) 58 MG/DL CALC LDL CHOL (test code = 2237) 170 MG/DL RISK RATIO LDL/HDL (test cod e = 2238) 2.93 RATIO Cristian StollCBC W/AUTO [id number] 00:00:00* Test Item Value Reference Range Interpretation Comme nts WBC (test code = 1001) 8.3 K/UL [...] COUNT (test code = 1015) 378 K/UL Cristian StollHEMOGLOBIN [id number] 00:00:00* Test Item Value Reference Range Interpretation Comme nts HEMOGLOBIN A1c (test code = 78200) 6.4 % Cristian [id number] 00:00:00* Test Item Value Reference Range Interpretation Comme nts TSH (test code = 2821) 5.290 UIU/ML Cristian StollLIPID [id number] 00:00:00* Test Item Value Reference Range Interpretation Comme nts CHOLESTEROL (test code = 2210) 261 MG/DL TRIGLYCERIDES (test code = 2232) 165 MG/DL HDL CHOLESTEROL (test code = 2220) 58 MG/DL CALC LDL CHOL (test code = 2237) 170 MG/DL RISK RATIO LDL/HDL (test cod e = 2238) 2.93 RATIO Cristian StollCBC W/AUTO [id number] 00:00:00* Test Item Value Reference Range Interpretation Comme nts WBC (test code = 1001) 8.3 K/UL [...] COUNT (test code = 1015) 378 K/UL Cristian StollHEMOGLOBIN [id number] 00:00:00* Test Item Value Reference Range Interpretation Comme [facility] HEMOGLOBIN A1c (test code = 35013) 6.4 % Cristian [id number] 00:00:00* Test Item Value Reference Range Interpretation Comme nts TSH (test code = 2821) 5.290 UIU/ML Cristian StollLIPID [id number] 00:00:00* Test Item Value Reference Range Interpretation Comme nts CHOLESTEROL (test code = 2210) 261 MG/DL TRIGLYCERIDES (test code = 2232) 165 MG/DL HDL CHOLESTEROL (test code = 2220) 58 MG/DL CALC LDL CHOL (test code = 2237) 170 MG/DL RISK RATIO LDL/HDL (test cod e = 2238) 2.93 RATIO THYROID II PROFILE (T3U, T4, T7, TSH)2017-04-18 00:00:00* Test Item Value Reference Range Interpretation Comme nts T3 UPTAKE (test code = 2817) 32.3 % T4 (THYROXINE) (test code = 2819) 5.2 UG/DL CALCULATED T7 (FTI) (test co de = 2820) 1.68 TSH (test code = 2821) 1.030 UIU/ML THYROID II PROFILE (T3U, T4, T7, TSH)2017-04-18 00:00:00* Test Item Value Reference Range Interpretation Comme nts T3 UPTAKE (test code = 2817) 32.3 % T4 (THYROXINE) (test code = 2819) 5.2 UG/DL CALCULATED T7 (FTI) (test co de = 2820) 1.68 TSH (test code = 2821) 1.030 UIU/ML Cristian So AustinTHYROID II PROFILE (T3U, T4, T7, TSH)2017-04-18 00:00:00* Test Item Value Reference Range Interpretation Comme nts T3 UPTAKE (test code = 2817) 32.3 % T4 (THYROXINE) (test code = 2819) 5.2 UG/DL CALCULATED T7 (FTI) (test co de = 2820) 1.68 TSH (test code = 2821) 1.030 UIU/ML Cristian So AustinTHYROID II PROFILE (T3U, T4, T7, TSH)2017-04-18 00:00:00* Test Item Value Reference Range Interpretation Comme nts T3 UPTAKE (test code = 2817) 32.3 % T4 (THYROXINE) (test code = 2819) 5.2 UG/DL CALCULATED T7 (FTI) (test co de = 2820) 1.68 TSH (test code = 2821) 1.030 UIU/ML THYROID II PROFILE (T3U, T4, T7, TSH)2017-04-18 00:00:00* Test Item Value Reference Range Interpretation Comme nts T3 UPTAKE (test code = 2817) 32.3 % T4 (THYROXINE) (test code = 2819) 5.2 UG/DL CALCULATED T7 (FTI) (test co de = 2820) 1.68 TSH (test code = 2821) 1.030 UIU/ML THYROID II PROFILE (T3U, T4, T7, TSH)2017-04-18 00:00:00* Test Item Value Reference Range Interpretation Comme nts T3 UPTAKE (test code = 2817) 32.3 % T4 (THYROXINE) (test code = 2819) 5.2 UG/DL CALCULATED T7 (FTI) (test co de = 2820) 1.68 TSH (test code = 2821) 1.030 UIU/ML Cristian So AustinTHYROID II PROFILE (T3U, T4, T7, TSH)2017-04-18 00:00:00* Test Item Value Reference Range Interpretation Comme nts T3 UPTAKE (test code = 2817) 32.3 % T4 (THYROXINE) (test code = 2819) 5.2 UG/DL CALCULATED T7 (FTI) (test co de = 2820) 1.68 TSH (test code = 2821) 1.030 UIU/ML Cristian So AustinTHYROID II PROFILE (T3U, T4, T7, TSH)2017-04-18 00:00:00* Test Item Value Reference Range Interpretation Comme nts T3 UPTAKE (test code = 2817) 32.3 % T4 (THYROXINE) (test code = 2819) 5.2 UG/DL CALCULATED T7 (FTI) (test co de = 2820) 1.68 TSH (test code = 2821) 1.030 UIU/ML Cristian So AustinTHYROID II PROFILE (T3U, T4, T7, TSH)2017-04-18 00:00:00* Test Item Value Reference Range Interpretation Comme nts T3 UPTAKE (test code = 2817) 32.3 % T4 (THYROXINE) (test code = 2819) 5.2 UG/DL CALCULATED T7 (FTI) (test co de = 2820) 1.68 TSH (test code = 2821) 1.030 UIU/ML Cristian So AustinTHYROID II PROFILE (T3U, T4, T7, TSH)2017-04-18 00:00:00* Test Item Value Reference Range Interpretation Comme nts T3 UPTAKE (test code = 2817) 32.3 % T4 (THYROXINE) (test code = 2819) 5.2 UG/DL CALCULATED T7 (FTI) (test co de = 2820) 1.68 TSH (test code = 2821) 1.030 UIU/ML Cristian So AustinTHYROID II PROFILE (T3U, T4, T7, TSH)2017-04-18 00:00:00* Test Item Value Reference Range Interpretation Comme nts T3 UPTAKE (test code = 2817) 32.3 % T4 (THYROXINE) (test code = 2819) 5.2 UG/DL CALCULATED T7 (FTI) (test co de = 2820) 1.68 TSH (test code = 2821) 1.030 UIU/ML Cristian So AustinTHYROID II PROFILE (T3U, T4, T7, TSH)2017-04-18 00:00:00* Test Item Value Reference Range Interpretation Comme nts T3 UPTAKE (test code = 2817) 32.3 % T4 (THYROXINE) (test code = 2819) 5.2 UG/DL CALCULATED T7 (FTI) (test co de = 2820) 1.68 TSH (test code = 2821) 1.030 UIU/ML Cristian So AustinTHYROID II PROFILE (T3U, T4, T7, TSH)2017-04-18 00:00:00* Test Item Value Reference Range Interpretation Comme nts T3 UPTAKE (test code = 2817) 32.3 % T4 (THYROXINE) (test code = 2819) 5.2 UG/DL CALCULATED T7 (FTI) (test co de = 2820) 1.68 TSH (test code = 2821) 1.030 UIU/ML THYROID II PROFILE (T3U, T4, T7, TSH)2017-02-26 00:00:00* Test Item Value Reference Range Interpretation Comme nts T3 UPTAKE (test code = 2817) 31.6 % T4 (THYROXINE) (test code = 2819) 5.4 UG/DL CALCULATED T7 (FTI) (test co de = 2820) 1.71 TSH (test code = 2821) 0.335 UIU/ML COMPREHENSIVE METABOLIC [id number] 00:00:00* Test Item Value Reference Range Interpretation Comme nts GLUCOSE (test code = 2217) 106 MG/DL BUN (test code = 2208) 23 MG/DL CREATININE (test code = 2214) 0.66 MG/DL eGFR AMER. (test cod e = 24340) 114 ML/MIN/1.73 eGFR NON- AMER. (test code = 67269) 99 ML/MIN/1.73 CALC BUN/CREAT (test code = 2235) 35 RATIO SODIUM (test code = 2231) 138 MEQ/L POTASSIUM (test code = 2228) 5.1 MEQ/L CHLORIDE (test code = 2215) 96 MEQ/L CARBON DIOXIDE (test code = 2206) 27 MEQ/L CALCIUM (test code = 2209) 9.6 MG/DL PROTEIN, TOTAL (test code = 2229) 7.1 G/DL ALBUMIN (test code = 2201) 4.7 G/DL CALC GLOBULIN (test code = 2240) 2.4 G/DL CALC A/G RATIO (test code = 2234) 2.0 RATIO BILIRUBIN, TOTAL (test code = 2207) 0.2 MG/DL ALKALINE PHOSPHATASE (test code = 2204) 101 U/L AST (test code = 2218) 21 U/L ALT (test code = 2219) 31 U/L THYROID II PROFILE (T3U, T4, T7, TSH)2017-02-26 00:00:00* Test Item Value Reference Range Interpretation Comme nts T3 UPTAKE (test code = 2817) 31.6 % T4 (THYROXINE) (test code = 2819) 5.4 UG/DL CALCULATED T7 (FTI) (test co de = 2820) 1.71 TSH (test code = 2821) 0.335 UIU/ML COMPREHENSIVE METABOLIC [id number] 00:00:00* Test Item Value Reference Range Interpretation Comme nts GLUCOSE (test code = 2217) 106 MG/DL BUN (test code = 2208) 23 MG/DL CREATININE (test code = 2214) 0.66 MG/DL eGFR AMER. (test cod e = 08814) 114 ML/MIN/1.73 eGFR NON- AMER. (test code = 54461) 99 ML/MIN/1.73 CALC BUN/CREAT (test code = 2235) 35 RATIO SODIUM (test code = 2231) 138 MEQ/L POTASSIUM (test code = 2228) 5.1 MEQ/L CHLORIDE (test code = 2215) 96 MEQ/L CARBON DIOXIDE (test code = 2206) 27 MEQ/L CALCIUM (test code = 2209) 9.6 MG/DL PROTEIN, TOTAL (test code = 2229) 7.1 G/DL ALBUMIN (test code = 2201) 4.7 G/DL CALC GLOBULIN (test code = 2240) 2.4 G/DL CALC A/G RATIO (test code = 2234) 2.0 RATIO BILIRUBIN, TOTAL (test code = 2207) 0.2 MG/DL ALKALINE PHOSPHATASE (test code = 2204) 101 U/L AST (test code = 2218) 21 U/L ALT (test code = 2219) 31 U/L COMPREHENSIVE METABOLIC [id number] 00:00:00* Test Item Value Reference Range Interpretation Comme nts GLUCOSE (test code = 2217) 106 MG/DL BUN (test code = 2208) 23 MG/DL CREATININE (test code = 2214) 0.66 MG/DL eGFR AMER. (test cod e = 72492) 114 ML/MIN/1.73 eGFR NON- AMER. (test code = 91971) 99 ML/MIN/1.73 CALC BUN/CREAT (test code = 2235) 35 RATIO SODIUM (test code = 2231) 138 MEQ/L POTASSIUM (test code = 2228) 5.1 MEQ/L CHLORIDE (test code = 2215) 96 MEQ/L CARBON DIOXIDE (test code = 2206) 27 MEQ/L CALCIUM (test code = 2209) 9.6 MG/DL PROTEIN, TOTAL (test code = 2229) 7.1 G/DL ALBUMIN (test code = 2201) 4.7 G/DL CALC GLOBULIN (test code = 2240) 2.4 G/DL CALC A/G RATIO (test code = 2234) 2.0 RATIO BILIRUBIN, TOTAL (test code = 2207) 0.2 MG/DL ALKALINE PHOSPHATASE (test code = 2204) 101 U/L AST (test code = 2218) 21 U/L ALT (test code = 2219) 31 U/L Cristian So AustinTHYROID II PROFILE (T3U, T4, T7, TSH)2017-02-26 00:00:00* Test Item Value Reference Range Interpretation Comme nts T3 UPTAKE (test code = 2817) 31.6 % T4 (THYROXINE) (test code = 2819) 5.4 UG/DL CALCULATED T7 (FTI) (test co de = 2820) 1.71 TSH (test code = 2821) 0.335 UIU/ML COMPREHENSIVE METABOLIC [id number] 00:00:00* Test Item Value Reference Range Interpretation Comme nts GLUCOSE (test code = 2217) 106 MG/DL BUN (test code = 2208) 23 MG/DL CREATININE (test code = 2214) 0.66 MG/DL eGFR AMER. (test cod e = 24691) 114 ML/MIN/1.73 eGFR NON- AMER. (test code = 43159) 99 ML/MIN/1.73 CALC BUN/CREAT (test code = 2235) 35 RATIO SODIUM (test code = 2231) 138 MEQ/L POTASSIUM (test code = 2228) 5.1 MEQ/L CHLORIDE (test code = 2215) 96 MEQ/L CARBON DIOXIDE (test code = 2206) 27 MEQ/L CALCIUM (test code = 2209) 9.6 MG/DL PROTEIN, TOTAL (test code = 2229) 7.1 G/DL ALBUMIN (test code = 2201) 4.7 G/DL CALC GLOBULIN (test code = 2240) 2.4 G/DL CALC A/G RATIO (test code = 2234) 2.0 RATIO BILIRUBIN, TOTAL (test code = 2207) 0.2 MG/DL ALKALINE PHOSPHATASE (test code = 2204) 101 U/L AST (test code = 2218) 21 U/L ALT (test code = 2219) 31 U/L THYROID II PROFILE (T3U, T4, T7, TSH)2017-02-26 00:00:00* Test Item Value Reference Range Interpretation Comme nts T3 UPTAKE (test code = 2817) 31.6 % T4 (THYROXINE) (test code = 2819) 5.4 UG/DL CALCULATED T7 (FTI) (test co de = 2820) 1.71 TSH (test code = 2821) 0.335 UIU/ML Cristian F AustinTHYROID II PROFILE (T3U, T4, T7, TSH)2017-02-26 00:00:00* Test Item Value Reference Range Interpretation Comme nts T3 UPTAKE (test code = 2817) 31.6 % T4 (THYROXINE) (test code = 2819) 5.4 UG/DL CALCULATED T7 (FTI) (test co de = 2820) 1.71 TSH (test code = 2821) 0.335 UIU/ML COMPREHENSIVE METABOLIC [id number] 00:00:00* Test Item Value Reference Range Interpretation Comme nts GLUCOSE (test code = 2217) 106 MG/DL BUN (test code = 2208) 23 MG/DL CREATININE (test code = 2214) 0.66 MG/DL eGFR AMER. (test cod e = 12076) 114 ML/MIN/1.73 eGFR NON- AMER. (test code = 58725) 99 ML/MIN/1.73 CALC BUN/CREAT (test code = 2235) 35 RATIO SODIUM (test code = 2231) 138 MEQ/L POTASSIUM (test code = 2228) 5.1 MEQ/L CHLORIDE (test code = 2215) 96 MEQ/L CARBON DIOXIDE (test code = 2206) 27 MEQ/L CALCIUM (test code = 2209) 9.6 MG/DL PROTEIN, TOTAL (test code = 2229) 7.1 G/DL ALBUMIN (test code = 2201) 4.7 G/DL CALC GLOBULIN (test code = 2240) 2.4 G/DL CALC A/G RATIO (test code = 2234) 2.0 RATIO BILIRUBIN, TOTAL (test code = 2207) 0.2 MG/DL ALKALINE PHOSPHATASE (test code = 2204) 101 U/L AST (test code = 2218) 21 U/L ALT (test code = 2219) 31 U/L Cristian StollCOMPREHENSIVE METABOLIC [id number] 00:00:00* Test Item Value Reference Range Interpretation Comme nts GLUCOSE (test code = 2217) 106 MG/DL BUN (test code = 2208) 23 MG/DL CREATININE (test code = 2214) 0.66 MG/DL eGFR AMER. (test cod e = 54196) 114 ML/MIN/1.73 eGFR NON- AMER. (test code = 74776) 99 ML/MIN/1.73 CALC BUN/CREAT (test code = 2235) 35 RATIO SODIUM (test code = 2231) 138 MEQ/L POTASSIUM (test code = 2228) 5.1 MEQ/L CHLORIDE (test code = 2215) 96 MEQ/L CARBON DIOXIDE (test code = 2206) 27 MEQ/L CALCIUM (test code = 2209) 9.6 MG/DL PROTEIN, TOTAL (test code = 2229) 7.1 G/DL ALBUMIN (test code = 2201) 4.7 G/DL CALC GLOBULIN (test code = 2240) 2.4 G/DL CALC A/G RATIO (test code = 2234) 2.0 RATIO BILIRUBIN, TOTAL (test code = 2207) 0.2 MG/DL ALKALINE PHOSPHATASE (test code = 2204) 101 U/L AST (test code = 2218) 21 U/L ALT (test code = 2219) 31 U/L Cristian StollTHYROID II PROFILE (T3U, T4, T7, TSH)2017-02-26 00:00:00* Test Item Value Reference Range Interpretation Comme nts T3 UPTAKE (test code = 2817) 31.6 % T4 (THYROXINE) (test code = 2819) 5.4 UG/DL CALCULATED T7 (FTI) (test co de = 2820) 1.71 TSH (test code = 2821) 0.335 UIU/ML Cristian StollCOMPREHENSIVE METABOLIC [id number] 00:00:00* Test Item Value Reference Range Interpretation Comme nts GLUCOSE (test code = 2217) 106 MG/DL BUN (test code = 2208) 23 MG/DL CREATININE (test code = 2214) 0.66 MG/DL eGFR AMER. (test cod e = 77524) 114 ML/MIN/1.73 eGFR NON- AMER. (test code = 51504) 99 ML/MIN/1.73 CALC BUN/CREAT (test code = 2235) 35 RATIO SODIUM (test code = 2231) 138 MEQ/L POTASSIUM (test code = 2228) 5.1 MEQ/L CHLORIDE (test code = 2215) 96 MEQ/L CARBON DIOXIDE (test code = 2206) 27 MEQ/L CALCIUM (test code = 2209) 9.6 MG/DL PROTEIN, TOTAL (test code = 2229) 7.1 G/DL ALBUMIN (test code = 2201) 4.7 G/DL CALC GLOBULIN (test code = 2240) 2.4 G/DL CALC A/G RATIO (test code = 2234) 2.0 RATIO BILIRUBIN, TOTAL (test code = 2207) 0.2 MG/DL ALKALINE PHOSPHATASE (test code = 2204) 101 U/L AST (test code = 2218) 21 U/L ALT (test code = 2219) 31 U/L Cristian So AustinTHYROID II PROFILE (T3U, T4, T7, TSH)2017-02-26 00:00:00* Test Item Value Reference Range Interpretation Comme nts T3 UPTAKE (test code = 2817) 31.6 % T4 (THYROXINE) (test code = 2819) 5.4 UG/DL CALCULATED T7 (FTI) (test co de = 2820) 1.71 TSH (test code = 2821) 0.335 UIU/ML Cristian So AustinTHYROID II PROFILE (T3U, T4, T7, TSH)2017-02-26 00:00:00* Test Item Value Reference Range Interpretation Comme nts T3 UPTAKE (test code = 2817) 31.6 % T4 (THYROXINE) (test code = 2819) 5.4 UG/DL CALCULATED T7 (FTI) (test co de = 2820) 1.71 TSH (test code = 2821) 0.335 UIU/ML Cristian So AustinCOMPREHENSIVE METABOLIC [id number] 00:00:00* Test Item Value Reference Range Interpretation Comme nts GLUCOSE (test code = 2217) 106 MG/DL BUN (test code = 2208) 23 MG/DL CREATININE (test code = 2214) 0.66 MG/DL eGFR AMER. (test cod e = 53216) 114 ML/MIN/1.73 eGFR NON- AMER. (test code = 53441) 99 ML/MIN/1.73 CALC BUN/CREAT (test code = 2235) 35 RATIO SODIUM (test code = 2231) 138 MEQ/L POTASSIUM (test code = 2228) 5.1 MEQ/L CHLORIDE (test code = 2215) 96 MEQ/L CARBON DIOXIDE (test code = 2206) 27 MEQ/L CALCIUM (test code = 2209) 9.6 MG/DL PROTEIN, TOTAL (test code = 2229) 7.1 G/DL ALBUMIN (test code = 2201) 4.7 G/DL CALC GLOBULIN (test code = 2240) 2.4 G/DL CALC A/G RATIO (test code = 2234) 2.0 RATIO BILIRUBIN, TOTAL (test code = 2207) 0.2 MG/DL ALKALINE PHOSPHATASE (test code = 2204) 101 U/L AST (test code = 2218) 21 U/L ALT (test code = 2219) 31 U/L Cristian So AustinTHYROID II PROFILE (T3U, T4, T7, TSH)2017-02-26 00:00:00* Test Item Value Reference Range Interpretation Comme nts T3 UPTAKE (test code = 2817) 31.6 % T4 (THYROXINE) (test code = 2819) 5.4 UG/DL CALCULATED T7 (FTI) (test co de = 2820) 1.71 TSH (test code = 2821) 0.335 UIU/ML Cristian So AustinCOMPREHENSIVE METABOLIC [id number] 00:00:00* Test Item Value Reference Range Interpretation Comme nts GLUCOSE (test code = 2217) 106 MG/DL BUN (test code = 2208) 23 MG/DL CREATININE (test code = 2214) 0.66 MG/DL eGFR AMER. (test cod e = 20455) 114 ML/MIN/1.73 eGFR NON- AMER. (test code = 38054) 99 ML/MIN/1.73 CALC BUN/CREAT (test code = 2235) 35 RATIO SODIUM (test code = 2231) 138 MEQ/L POTASSIUM (test code = 2228) 5.1 MEQ/L CHLORIDE (test code = 2215) 96 MEQ/L CARBON DIOXIDE (test code = 2206) 27 MEQ/L CALCIUM (test code = 2209) 9.6 MG/DL PROTEIN, TOTAL (test code = 2229) 7.1 G/DL ALBUMIN (test code = 2201) 4.7 G/DL CALC GLOBULIN (test code = 2240) 2.4 G/DL CALC A/G RATIO (test code = 2234) 2.0 RATIO BILIRUBIN, TOTAL (test code = 2207) 0.2 MG/DL ALKALINE PHOSPHATASE (test code = 2204) 101 U/L AST (test code = 2218) 21 U/L ALT (test code = 2219) 31 U/L Cristian StollTHYROID II PROFILE (T3U, T4, T7, TSH)2017-02-26 00:00:00* Test Item Value Reference Range Interpretation Comme nts T3 UPTAKE (test code = 2817) 31.6 % T4 (THYROXINE) (test code = 2819) 5.4 UG/DL CALCULATED T7 (FTI) (test co de = 2820) 1.71 TSH (test code = 2821) 0.335 UIU/ML Cristian StollCOMPREHENSIVE METABOLIC [id number] 00:00:00* Test Item Value Reference Range Interpretation Comme nts GLUCOSE (test code = 2217) 106 MG/DL BUN (test code = 2208) 23 MG/DL CREATININE (test code = 2214) 0.66 MG/DL eGFR AMER. (test cod e = 99545) 114 ML/MIN/1.73 eGFR NON- AMER. (test code = 91673) 99 ML/MIN/1.73 CALC BUN/CREAT (test code = 2235) 35 RATIO SODIUM (test code = 2231) 138 MEQ/L POTASSIUM (test code = 2228) 5.1 MEQ/L CHLORIDE (test code = 2215) 96 MEQ/L CARBON DIOXIDE (test code = 2206) 27 MEQ/L CALCIUM (test code = 2209) 9.6 MG/DL PROTEIN, TOTAL (test code = 2229) 7.1 G/DL ALBUMIN (test code = 2201) 4.7 G/DL CALC GLOBULIN (test code = 2240) 2.4 G/DL CALC A/G RATIO (test code = 2234) 2.0 RATIO BILIRUBIN, TOTAL (test code = 2207) 0.2 MG/DL ALKALINE PHOSPHATASE (test code = 2204) 101 U/L AST (test code = 2218) 21 U/L ALT (test code = 2219) 31 U/L Cristian StollTHYROID II PROFILE (T3U, T4, T7, TSH)2017-02-26 00:00:00* Test Item Value Reference Range Interpretation Comme nts T3 UPTAKE (test code = 2817) 31.6 % T4 (THYROXINE) (test code = 2819) 5.4 UG/DL CALCULATED T7 (FTI) (test co de = 2820) 1.71 TSH (test code = 2821) 0.335 UIU/ML Cristian StollCOMPREHENSIVE METABOLIC [id number] 00:00:00* Test Item Value Reference Range Interpretation Comme nts GLUCOSE (test code = 2217) 106 MG/DL BUN (test code = 2208) 23 MG/DL CREATININE (test code = 2214) 0.66 MG/DL eGFR AMER. (test cod e = 29425) 114 ML/MIN/1.73 eGFR NON- AMER. (test code = 11726) 99 ML/MIN/1.73 CALC BUN/CREAT (test code = 2235) 35 RATIO SODIUM (test code = 2231) 138 MEQ/L POTASSIUM (test code = 2228) 5.1 MEQ/L CHLORIDE (test code = 2215) 96 MEQ/L CARBON DIOXIDE (test code = 2206) 27 MEQ/L CALCIUM (test code = 2209) 9.6 MG/DL PROTEIN, TOTAL (test code = 2229) 7.1 G/DL ALBUMIN (test code = 2201) 4.7 G/DL CALC GLOBULIN (test code = 2240) 2.4 G/DL CALC A/G RATIO (test code = 2234) 2.0 RATIO BILIRUBIN, TOTAL (test code = 2207) 0.2 MG/DL ALKALINE PHOSPHATASE (test code = 2204) 101 U/L AST (test code = 2218) 21 U/L ALT (test code = 2219) 31 U/L Cristian So AustinTHYROID II PROFILE (T3U, T4, T7, TSH)2017-02-26 00:00:00* Test Item Value Reference Range Interpretation Comme nts T3 UPTAKE (test code = 2817) 31.6 % T4 (THYROXINE) (test code = 2819) 5.4 UG/DL CALCULATED T7 (FTI) (test co de = 2820) 1.71 TSH (test code = 2821) 0.335 UIU/ML Cristian Saray JermanCOMPREHENSIVE METABOLIC [id number] 00:00:00* Test Item Value Reference Range Interpretation Comme nts GLUCOSE (test code = 2217) 106 MG/DL BUN (test code = 2208) 23 MG/DL CREATININE (test code = 2214) 0.66 MG/DL eGFR AMER. (test cod e = 39277) 114 ML/MIN/1.73 eGFR NON- AMER. (test code = 73205) 99 ML/MIN/1.73 CALC BUN/CREAT (test code = 2235) 35 RATIO SODIUM (test code = 2231) 138 MEQ/L POTASSIUM (test code = 2228) 5.1 MEQ/L CHLORIDE (test code = 2215) 96 MEQ/L CARBON DIOXIDE (test code = 2206) 27 MEQ/L CALCIUM (test code = 2209) 9.6 MG/DL PROTEIN, TOTAL (test code = 2229) 7.1 G/DL ALBUMIN (test code = 2201) 4.7 G/DL CALC GLOBULIN (test code = 2240) 2.4 G/DL CALC A/G RATIO (test code = 2234) 2.0 RATIO BILIRUBIN, TOTAL (test code = 2207) 0.2 MG/DL ALKALINE PHOSPHATASE (test code = 2204) 101 U/L AST (test code = 2218) 21 U/L ALT (test code = 2219) 31 U/L Cristian Saray AustinTHYROID II PROFILE (T3U, T4, T7, TSH)2017-02-26 00:00:00* Test Item Value Reference Range Interpretation Comme nts T3 UPTAKE (test code = 2817) 31.6 % T4 (THYROXINE) (test code = 2819) 5.4 UG/DL CALCULATED T7 (FTI) (test co de = 2820) 1.71 TSH (test code = 2821) 0.335 UIU/ML Cristian StollCOMPREHENSIVE METABOLIC [id number] 00:00:00* Test Item Value Reference Range Interpretation Comme nts GLUCOSE (test code = 2217) 106 MG/DL BUN (test code = 2208) 23 MG/DL CREATININE (test code = 2214) 0.66 MG/DL eGFR AMER. (test cod e = 70995) 114 ML/MIN/1.73 eGFR NON- AMER. (test code = 24607) 99 ML/MIN/1.73 CALC BUN/CREAT (test code = 2235) 35 RATIO SODIUM (test code = 2231) 138 MEQ/L POTASSIUM (test code = 2228) 5.1 MEQ/L CHLORIDE (test code = 2215) 96 MEQ/L CARBON DIOXIDE (test code = 2206) 27 MEQ/L CALCIUM (test code = 2209) 9.6 MG/DL PROTEIN, TOTAL (test code = 2229) 7.1 G/DL ALBUMIN (test code = 2201) 4.7 G/DL CALC GLOBULIN (test code = 2240) 2.4 G/DL CALC A/G RATIO (test code = 2234) 2.0 RATIO BILIRUBIN, TOTAL (test code = 2207) 0.2 MG/DL ALKALINE PHOSPHATASE (test code = 2204) 101 U/L AST (test code = 2218) 21 U/L ALT (test code = 2219) 31 U/L THYROID II PROFILE (T3U, T4, T7, TSH)2016-08-22 00:00:00* Test Item Value Reference Range Interpretation Comme nts T3 UPTAKE (test code = 2817) 35.1 % T4 (THYROXINE) (test code = 2819) 3.9 UG/DL CALCULATED T7 (FTI) (test co de = 2820) 1.37 TSH (test code = 2821) 0.424 UIU/ML COMPREHENSIVE METABOLIC [id number] 00:00:00* Test Item Value Reference Range Interpretation Comme nts GLUCOSE (test code = 2217) 103 MG/DL BUN (test code = 2208) 15 MG/DL CREATININE (test code = 2214) 0.77 MG/DL eGFR AMER. (test cod e = 98694) 101 ML/MIN/1.73 eGFR NON- AMER. (test code = 12264) 87 ML/MIN/1.73 CALC BUN/CREAT (test code = 2235) 19 RATIO SODIUM (test code = 2231) 136 MEQ/L POTASSIUM (test code = 2228) 4.7 MEQ/L CHLORIDE (test code = 2215) 94 MEQ/L CARBON DIOXIDE (test code = 2206) 27 MEQ/L CALCIUM (test code = 2209) 9.4 MG/DL PROTEIN, TOTAL (test code = 2229) 6.4 G/DL ALBUMIN (test code = 2201) 4.3 G/DL CALC GLOBULIN (test code = 2240) 2.1 G/DL CALC A/G RATIO (test code = 2234) 2.0 RATIO BILIRUBIN, TOTAL (test code = 2207) 0.1 MG/DL ALKALINE PHOSPHATASE (test code = 2204) 83 U/L AST (test code = 2218) 15 U/L ALT (test code = 2219) 24 U/L COMPREHENSIVE METABOLIC [id number] 00:00:00* Test Item Value Reference Range Interpretation Comme nts GLUCOSE (test code = 2217) 103 MG/DL BUN (test code = 2208) 15 MG/DL CREATININE (test code = 2214) 0.77 MG/DL eGFR AMER. (test cod e = 85005) 101 ML/MIN/1.73 eGFR NON- AMER. (test code = 55930) 87 ML/MIN/1.73 CALC BUN/CREAT (test code = 2235) 19 RATIO SODIUM (test code = 2231) 136 MEQ/L POTASSIUM (test code = 2228) 4.7 MEQ/L CHLORIDE (test code = 2215) 94 MEQ/L CARBON DIOXIDE (test code = 2206) 27 MEQ/L CALCIUM (test code = 2209) 9.4 MG/DL PROTEIN, TOTAL (test code = 2229) 6.4 G/DL ALBUMIN (test code = 2201) 4.3 G/DL CALC GLOBULIN (test code = 2240) 2.1 G/DL CALC A/G RATIO (test code = 2234) 2.0 RATIO BILIRUBIN, TOTAL (test code = 2207) 0.1 MG/DL ALKALINE PHOSPHATASE (test code = 2204) 83 U/L AST (test code = 2218) 15 U/L ALT (test code = 2219) 24 U/L Cristian So AustinTHYROID II PROFILE (T3U, T4, T7, TSH)2016-08-22 00:00:00* Test Item Value Reference Range Interpretation Comme nts T3 UPTAKE (test code = 2817) 35.1 % T4 (THYROXINE) (test code = 2819) 3.9 UG/DL CALCULATED T7 (FTI) (test co de = 2820) 1.37 TSH (test code = 2821) 0.424 UIU/ML COMPREHENSIVE METABOLIC [id number] 00:00:00* Test Item Value Reference Range Interpretation Comme nts GLUCOSE (test code = 2217) 103 MG/DL BUN (test code = 2208) 15 MG/DL CREATININE (test code = 2214) 0.77 MG/DL eGFR AMER. (test cod e = 31302) 101 ML/MIN/1.73 eGFR NON- AMER. (test code = 40990) 87 ML/MIN/1.73 CALC BUN/CREAT (test code = 2235) 19 RATIO SODIUM (test code = 2231) 136 MEQ/L POTASSIUM (test code = 2228) 4.7 MEQ/L CHLORIDE (test code = 2215) 94 MEQ/L CARBON DIOXIDE (test code = 2206) 27 MEQ/L CALCIUM (test code = 2209) 9.4 MG/DL PROTEIN, TOTAL (test code = 2229) 6.4 G/DL ALBUMIN (test code = 2201) 4.3 G/DL CALC GLOBULIN (test code = 2240) 2.1 G/DL CALC A/G RATIO (test code = 2234) 2.0 RATIO BILIRUBIN, TOTAL (test code = 2207) 0.1 MG/DL ALKALINE PHOSPHATASE (test code = 2204) 83 U/L AST (test code = 2218) 15 U/L ALT (test code = 2219) 24 U/L THYROID II PROFILE (T3U, T4, T7, TSH)2016-08-22 00:00:00* Test Item Value Reference Range Interpretation Comme nts T3 UPTAKE (test code = 2817) 35.1 % T4 (THYROXINE) (test code = 2819) 3.9 UG/DL CALCULATED T7 (FTI) (test co de = 2820) 1.37 TSH (test code = 2821) 0.424 UIU/ML THYROID II PROFILE (T3U, T4, T7, TSH)2016-08-22 00:00:00* Test Item Value Reference Range Interpretation Comme nts T3 UPTAKE (test code = 2817) 35.1 % T4 (THYROXINE) (test code = 2819) 3.9 UG/DL CALCULATED T7 (FTI) (test co de = 2820) 1.37 TSH (test code = 2821) 0.424 UIU/ML Cristian StollCOMPREHENSIVE METABOLIC [id number] 00:00:00* Test Item Value Reference Range Interpretation Comme nts GLUCOSE (test code = 2217) 103 MG/DL BUN (test code = 2208) 15 MG/DL CREATININE (test code = 2214) 0.77 MG/DL eGFR AMER. (test cod e = 40112) 101 ML/MIN/1.73 eGFR NON- AMER. (test code = 41079) 87 ML/MIN/1.73 CALC BUN/CREAT (test code = 2235) 19 RATIO SODIUM (test code = 2231) 136 MEQ/L POTASSIUM (test code = 2228) 4.7 MEQ/L CHLORIDE (test code = 2215) 94 MEQ/L CARBON DIOXIDE (test code = 2206) 27 MEQ/L CALCIUM (test code = 2209) 9.4 MG/DL PROTEIN, TOTAL (test code = 2229) 6.4 G/DL ALBUMIN (test code = 2201) 4.3 G/DL CALC GLOBULIN (test code = 2240) 2.1 G/DL CALC A/G RATIO (test code = 2234) 2.0 RATIO BILIRUBIN, TOTAL (test code = 2207) 0.1 MG/DL ALKALINE PHOSPHATASE (test code = 2204) 83 U/L AST (test code = 2218) 15 U/L ALT (test code = 2219) 24 U/L THYROID II PROFILE (T3U, T4, T7, TSH)2016-08-22 00:00:00* Test Item Value Reference Range Interpretation Comme nts T3 UPTAKE (test code = 2817) 35.1 % T4 (THYROXINE) (test code = 2819) 3.9 UG/DL CALCULATED T7 (FTI) (test co de = 2820) 1.37 TSH (test code = 2821) 0.424 UIU/ML COMPREHENSIVE METABOLIC [id number] 00:00:00* Test Item Value Reference Range Interpretation Comme nts GLUCOSE (test code = 2217) 103 MG/DL BUN (test code = 2208) 15 MG/DL CREATININE (test code = 2214) 0.77 MG/DL eGFR AMER. (test cod e = 31991) 101 ML/MIN/1.73 eGFR NON- AMER. (test code = 05658) 87 ML/MIN/1.73 CALC BUN/CREAT (test code = 2235) 19 RATIO SODIUM (test code = 2231) 136 MEQ/L POTASSIUM (test code = 2228) 4.7 MEQ/L CHLORIDE (test code = 2215) 94 MEQ/L CARBON DIOXIDE (test code = 2206) 27 MEQ/L CALCIUM (test code = 2209) 9.4 MG/DL PROTEIN, TOTAL (test code = 2229) 6.4 G/DL ALBUMIN (test code = 2201) 4.3 G/DL CALC GLOBULIN (test code = 2240) 2.1 G/DL CALC A/G RATIO (test code = 2234) 2.0 RATIO BILIRUBIN, TOTAL (test code = 2207) 0.1 MG/DL ALKALINE PHOSPHATASE (test code = 2204) 83 U/L AST (test code = 2218) 15 U/L ALT (test code = 2219) 24 U/L Cristian StollTHYROID II PROFILE (T3U, T4, T7, TSH)2016-08-22 00:00:00* Test Item Value Reference Range Interpretation Comme nts T3 UPTAKE (test code = 2817) 35.1 % T4 (THYROXINE) (test code = 2819) 3.9 UG/DL CALCULATED T7 (FTI) (test co de = 2820) 1.37 TSH (test code = 2821) 0.424 UIU/ML Cristian So AustinTHYROID II PROFILE (T3U, T4, T7, TSH)2016-08-22 00:00:00* Test Item Value Reference Range Interpretation Comme nts T3 UPTAKE (test code = 2817) 35.1 % T4 (THYROXINE) (test code = 2819) 3.9 UG/DL CALCULATED T7 (FTI) (test co de = 2820) 1.37 TSH (test code = 2821) 0.424 UIU/ML Cristian So AustinCOMPREHENSIVE METABOLIC [id number] 00:00:00* Test Item Value Reference Range Interpretation Comme nts GLUCOSE (test code = 2217) 103 MG/DL BUN (test code = 2208) 15 MG/DL CREATININE (test code = 2214) 0.77 MG/DL eGFR AMER. (test cod e = 35584) 101 ML/MIN/1.73 eGFR NON- AMER. (test code = 39092) 87 ML/MIN/1.73 CALC BUN/CREAT (test code = 2235) 19 RATIO SODIUM (test code = 2231) 136 MEQ/L POTASSIUM (test code = 2228) 4.7 MEQ/L CHLORIDE (test code = 2215) 94 MEQ/L CARBON DIOXIDE (test code = 2206) 27 MEQ/L CALCIUM (test code = 2209) 9.4 MG/DL PROTEIN, TOTAL (test code = 2229) 6.4 G/DL ALBUMIN (test code = 2201) 4.3 G/DL CALC GLOBULIN (test code = 2240) 2.1 G/DL CALC A/G RATIO (test code = 2234) 2.0 RATIO BILIRUBIN, TOTAL (test code = 2207) 0.1 MG/DL ALKALINE PHOSPHATASE (test code = 2204) 83 U/L AST (test code = 2218) 15 U/L ALT (test code = 2219) 24 U/L Cristian So PortlandTHYROID II PROFILE (T3U, T4, T7, TSH)2016-08-22 00:00:00* Test Item Value Reference Range Interpretation Comme nts T3 UPTAKE (test code = 2817) 35.1 % T4 (THYROXINE) (test code = 2819) 3.9 UG/DL CALCULATED T7 (FTI) (test co de = 2820) 1.37 TSH (test code = 2821) 0.424 UIU/ML Cristian So AustinCOMPREHENSIVE METABOLIC [id number] 00:00:00* Test Item Value Reference Range Interpretation Comme nts GLUCOSE (test code = 2217) 103 MG/DL BUN (test code = 2208) 15 MG/DL CREATININE (test code = 2214) 0.77 MG/DL eGFR AMER. (test cod e = 90192) 101 ML/MIN/1.73 eGFR NON- AMER. (test code = 90604) 87 ML/MIN/1.73 CALC BUN/CREAT (test code = 2235) 19 RATIO SODIUM (test code = 2231) 136 MEQ/L POTASSIUM (test code = 2228) 4.7 MEQ/L CHLORIDE (test code = 2215) 94 MEQ/L CARBON DIOXIDE (test code = 2206) 27 MEQ/L CALCIUM (test code = 2209) 9.4 MG/DL PROTEIN, TOTAL (test code = 2229) 6.4 G/DL ALBUMIN (test code = 2201) 4.3 G/DL CALC GLOBULIN (test code = 2240) 2.1 G/DL CALC A/G RATIO (test code = 2234) 2.0 RATIO BILIRUBIN, TOTAL (test code = 2207) 0.1 MG/DL ALKALINE PHOSPHATASE (test code = 2204) 83 U/L AST (test code = 2218) 15 U/L ALT (test code = 2219) 24 U/L Cristian StollTHYROID II PROFILE (T3U, T4, T7, TSH)2016-08-22 00:00:00* Test Item Value Reference Range Interpretation Comme nts T3 UPTAKE (test code = 2817) 35.1 % T4 (THYROXINE) (test code = 2819) 3.9 UG/DL CALCULATED T7 (FTI) (test co de = 2820) 1.37 TSH (test code = 2821) 0.424 UIU/ML Cristian StollCOMPREHENSIVE METABOLIC [id number] 00:00:00* Test Item Value Reference Range Interpretation Comme nts GLUCOSE (test code = 2217) 103 MG/DL BUN (test code = 2208) 15 MG/DL CREATININE (test code = 2214) 0.77 MG/DL eGFR AMER. (test cod e = 07259) 101 ML/MIN/1.73 eGFR NON- AMER. (test code = 40926) 87 ML/MIN/1.73 CALC BUN/CREAT (test code = 2235) 19 RATIO SODIUM (test code = 2231) 136 MEQ/L POTASSIUM (test code = 2228) 4.7 MEQ/L CHLORIDE (test code = 2215) 94 MEQ/L CARBON DIOXIDE (test code = 2206) 27 MEQ/L CALCIUM (test code = 2209) 9.4 MG/DL PROTEIN, TOTAL (test code = 2229) 6.4 G/DL ALBUMIN (test code = 2201) 4.3 G/DL CALC GLOBULIN (test code = 2240) 2.1 G/DL CALC A/G RATIO (test code = 2234) 2.0 RATIO BILIRUBIN, TOTAL (test code = 2207) 0.1 MG/DL ALKALINE PHOSPHATASE (test code = 2204) 83 U/L AST (test code = 2218) 15 U/L ALT (test code = 2219) 24 U/L Cristian StollTHYROID II PROFILE (T3U, T4, T7, TSH)2016-08-22 00:00:00* Test Item Value Reference Range Interpretation Comme nts T3 UPTAKE (test code = 2817) 35.1 % T4 (THYROXINE) (test code = 2819) 3.9 UG/DL CALCULATED T7 (FTI) (test co de = 2820) 1.37 TSH (test code = 2821) 0.424 UIU/ML Cristian StollCOMPREHENSIVE METABOLIC [id number] 00:00:00* Test Item Value Reference Range Interpretation Comme nts GLUCOSE (test code = 2217) 103 MG/DL BUN (test code = 2208) 15 MG/DL CREATININE (test code = 2214) 0.77 MG/DL eGFR AMER. (test cod e = 55731) 101 ML/MIN/1.73 eGFR NON- AMER. (test code = 81606) 87 ML/MIN/1.73 CALC BUN/CREAT (test code = 2235) 19 RATIO SODIUM (test code = 2231) 136 MEQ/L POTASSIUM (test code = 2228) 4.7 MEQ/L CHLORIDE (test code = 2215) 94 MEQ/L CARBON DIOXIDE (test code = 2206) 27 MEQ/L CALCIUM (test code = 2209) 9.4 MG/DL PROTEIN, TOTAL (test code = 2229) 6.4 G/DL ALBUMIN (test code = 2201) 4.3 G/DL CALC GLOBULIN (test code = 2240) 2.1 G/DL CALC A/G RATIO (test code = 2234) 2.0 RATIO BILIRUBIN, TOTAL (test code = 2207) 0.1 MG/DL ALKALINE PHOSPHATASE (test code = 2204) 83 U/L AST (test code = 2218) 15 U/L ALT (test code = 2219) 24 U/L Cristian StollTHYROID II PROFILE (T3U, T4, T7, TSH)2016-08-22 00:00:00* Test Item Value Reference Range Interpretation Comme nts T3 UPTAKE (test code = 2817) 35.1 % T4 (THYROXINE) (test code = 2819) 3.9 UG/DL CALCULATED T7 (FTI) (test co de = 2820) 1.37 TSH (test code = 2821) 0.424 UIU/ML Cristian StollCOMPREHENSIVE METABOLIC [id number] 00:00:00* Test Item Value Reference Range Interpretation Comme nts GLUCOSE (test code = 2217) 103 MG/DL BUN (test code = 2208) 15 MG/DL CREATININE (test code = 2214) 0.77 MG/DL eGFR AMER. (test cod e = 40805) 101 ML/MIN/1.73 eGFR NON- AMER. (test code = 63289) 87 ML/MIN/1.73 CALC BUN/CREAT (test code = 2235) 19 RATIO SODIUM (test code = 2231) 136 MEQ/L POTASSIUM (test code = 2228) 4.7 MEQ/L CHLORIDE (test code = 2215) 94 MEQ/L CARBON DIOXIDE (test code = 2206) 27 MEQ/L CALCIUM (test code = 2209) 9.4 MG/DL PROTEIN, TOTAL (test code = 2229) 6.4 G/DL ALBUMIN (test code = 2201) 4.3 G/DL CALC GLOBULIN (test code = 2240) 2.1 G/DL CALC A/G RATIO (test code = 2234) 2.0 RATIO BILIRUBIN, TOTAL (test code = 2207) 0.1 MG/DL ALKALINE PHOSPHATASE (test code = 2204) 83 U/L AST (test code = 2218) 15 U/L ALT (test code = 2219) 24 U/L Cristian StollTHYROID II PROFILE (T3U, T4, T7, TSH)2016-08-22 00:00:00* Test Item Value Reference Range Interpretation Comme nts T3 UPTAKE (test code = 2817) 35.1 % T4 (THYROXINE) (test code = 2819) 3.9 UG/DL CALCULATED T7 (FTI) (test co de = 2820) 1.37 TSH (test code = 2821) 0.424 UIU/ML Cristian StollCOMPREHENSIVE METABOLIC [id number] 00:00:00* Test Item Value Reference Range Interpretation Comme nts GLUCOSE (test code = 2217) 103 MG/DL BUN (test code = 2208) 15 MG/DL CREATININE (test code = 2214) 0.77 MG/DL eGFR AMER. (test cod e = 55027) 101 ML/MIN/1.73 eGFR NON- AMER. (test code = 82048) 87 ML/MIN/1.73 CALC BUN/CREAT (test code = 2235) 19 RATIO SODIUM (test code = 2231) 136 MEQ/L POTASSIUM (test code = 2228) 4.7 MEQ/L CHLORIDE (test code = 2215) 94 MEQ/L CARBON DIOXIDE (test code = 2206) 27 MEQ/L CALCIUM (test code = 2209) 9.4 MG/DL PROTEIN, TOTAL (test code = 2229) 6.4 G/DL ALBUMIN (test code = 2201) 4.3 G/DL CALC GLOBULIN (test code = 2240) 2.1 G/DL CALC A/G RATIO (test code = 2234) 2.0 RATIO BILIRUBIN, TOTAL (test code = 2207) 0.1 MG/DL ALKALINE PHOSPHATASE (test code = 2204) 83 U/L AST (test code = 2218) 15 U/L ALT (test code = 2219) 24 U/L Cristian StollTHYROID II PROFILE (T3U, T4, T7, TSH)2016-08-22 00:00:00* Test Item Value Reference Range Interpretation Comme nts T3 UPTAKE (test code = 2817) 35.1 % T4 (THYROXINE) (test code = 2819) 3.9 UG/DL CALCULATED T7 (FTI) (test co de = 2820) 1.37 TSH (test code = 2821) 0.424 UIU/ML Cristian So PortlandCOMPREHENSIVE METAB[place] [id number] 00:00:00* Test Item Value Reference Range Interpretation Comme nts GLUCOSE (test code = 2217) 103 MG/DL BUN (test code = 2208) 15 MG/DL CREATININE (test code = 2214) 0.77 MG/DL eGFR AMER. (test cod e = 28805) 101 ML/MIN/1.73 eGFR NON- AMER. (test code = 85893) 87 ML/MIN/1.73 CALC BUN/CREAT (test code = 2235) 19 RATIO SODIUM (test code = 2231) 136 MEQ/L POTASSIUM (test code = 2228) 4.7 MEQ/L CHLORIDE (test code = 2215) 94 MEQ/L CARBON DIOXIDE (test code = 2206) 27 MEQ/L CALCIUM (test code = 2209) 9.4 MG/DL PROTEIN, TOTAL (test code = 2229) 6.4 G/DL ALBUMIN (test code = 2201) 4.3 G/DL CALC GLOBULIN (test code = 2240) 2.1 G/DL CALC A/G RATIO (test code = 2234) 2.0 RATIO BILIRUBIN, TOTAL (test code = 2207) 0.1 MG/DL ALKALINE PHOSPHATASE (test code = 2204) 83 U/L AST (test code = 2218) 15 U/L ALT (test code = 2219) 24 U/L Cristian StollCOMPREHENSIVE METABOLIC [id number] 00:00:00* Test Item Value Reference Range Interpretation Comme nts GLUCOSE (test code = 2217) 103 MG/DL BUN (test code = 2208) 15 MG/DL CREATININE (test code = 2214) 0.77 MG/DL eGFR AMER. (test cod e = 72484) 101 ML/MIN/1.73 eGFR NON- AMER. (test code = 20279) 87 ML/MIN/1.73 CALC BUN/CREAT (test code = 2235) 19 RATIO SODIUM (test code = 2231) 136 MEQ/L POTASSIUM (test code = 2228) 4.7 MEQ/L CHLORIDE (test code = 2215) 94 MEQ/L CARBON DIOXIDE (test code = 2206) 27 MEQ/L CALCIUM (test code = 2209) 9.4 MG/DL PROTEIN, TOTAL (test code = 2229) 6.4 G/DL ALBUMIN (test code = 2201) 4.3 G/DL CALC GLOBULIN (test code = 2240) 2.1 G/DL CALC A/G RATIO (test code = 2234) 2.0 RATIO BILIRUBIN, TOTAL (test code = 2207) 0.1 MG/DL ALKALINE PHOSPHATASE (test code = 2204) 83 U/L AST (test code = 2218) 15 U/L ALT (test code = 2219) 24 U/L CULTURE, [id number] 00:00:00* Test Item Value Reference Range Interpretation Comme nts CULTURE, URINE (test code = 30039) SPECIMEN NUMBER: [id number] VICKY, [id number] 00:00:00* Test Item Value Reference Range Interpretation Comme nts CULTURE, URINE (test code = 29755) SPECIMEN NUMBER: [id number] VICKY, [id number] 00:00:00* Test Item Value Reference Range Interpretation Comme nts CULTURE, URINE (test code = 17474) SPECIMEN NUMBER: [id number] Cristian Mary, [id number] 00:00:00* Test Item Value Reference Range Interpretation Comme nts CULTURE, URINE (test code = 49298) SPECIMEN NUMBER: [id number] VICKY, [id number] 00:00:00* Test Item Value Reference Range Interpretation Comme nts CULTURE, URINE (test code = 80975) SPECIMEN NUMBER: [id number] Cristian Mary, [id number] 00:00:00* Test Item Value Reference Range Interpretation Comme nts CULTURE, URINE (test code = 77681) SPECIMEN NUMBER: [id number] Cristian Mary, [id number] 00:00:00* Test Item Value Reference Range Interpretation Comme nts CULTURE, URINE (test code = 62084) SPECIMEN NUMBER: [id number] Cristian Mary, [id number] 00:00:00* Test Item Value Reference Range Interpretation Comme nts CULTURE, URINE (test code = 91512) SPECIMEN NUMBER: [id number] Cristian Mary, [id number] 00:00:00* Test Item Value Reference Range Interpretation Comme nts CULTURE, URINE (test code = 91008) SPECIMEN NUMBER: [id number] Cristian Mary [id number] 00:00:00* Test Item Value Reference Range Interpretation Comme nts CULTURE, URINE (test code = 33600) SPECIMEN NUMBER: [id number] Cristian Mary [id number] 00:00:00* Test Item Value Reference Range Interpretation Comme nts CULTURE, URINE (test code = 36364) SPECIMEN NUMBER: [id number] Cristian Mary [id number] 00:00:00* Test Item Value Reference Range Interpretation Comme nts CULTURE, URINE (test code = 97989) SPECIMEN NUMBER: [id number] ABBEY Herbert2017-06-14 00:00:00* Test Item Value Reference Range Interpretation Comme nts CULTURE, URINE (test code = 44408) SPECIMEN NUMBER: [id number] VICKY [id number] 00:00:00* Test Item Value Reference Range Interpretation Comme nts CULTURE, URINE (test code = 74426) SPECIMEN NUMBER: [id number] VICKY [id number] 00:00:00* Test Item Value Reference Range Interpretation Comme nts CULTURE, URINE (test code = 08970) SPECIMEN NUMBER: [id number] Cristian Mary [id number] 00:00:00* Test Item Value Reference Range Interpretation Comme nts CULTURE, URINE (test code = 74990) SPECIMEN NUMBER: [id number] CULTURE, [id number] 00:00:00* Test Item Value Reference Range Interpretation Comme nts CULTURE, URINE (test code = 98054) SPECIMEN NUMBER: [id number] CULTURE, [id number] 00:00:00* Test Item Value Reference Range Interpretation Comme nts CULTURE, URINE (test code = 48535) SPECIMEN NUMBER: [id number] Cristian Mary [id number] 00:00:00* Test Item Value Reference Range Interpretation Comme nts CULTURE, URINE (test code = 39655) SPECIMEN NUMBER: [id number] Cristian Mary, [id number] 00:00:00* Test Item Value Reference Range Interpretation Comme nts CULTURE, URINE (test code = 91877) SPECIMEN NUMBER: [id number] ABBEY Herbert2017-06-01 00:00:00* Test Item Value Reference Range Interpretation Comme nts CULTURE, URINE (test code = 04706) SPECIMEN NUMBER: [id number] ABBEY Herbert2017-06-01 00:00:00* Test Item Value Reference Range Interpretation Comme nts CULTURE, URINE (test code = 76415) SPECIMEN NUMBER: [id number] ABBEY Herbert2017-06-01 00:00:00* Test Item Value Reference Range Interpretation Comme nts CULTURE, URINE (test code = 58819) SPECIMEN NUMBER: [id number] ABBEY Herbert2017-06-01 00:00:00* Test Item Value Reference Range Interpretation Comme nts CULTURE, URINE (test code = 85792) SPECIMEN NUMBER: [id number] ABBEY Herbert2017-06-01 00:00:00* Test Item Value Reference Range Interpretation Comme nts CULTURE, URINE (test code = 94310) SPECIMEN NUMBER: [id number] Crsitian Mary [id number] 00:00:00* Test Item Value Reference Range Interpretation Comme nts CULTURE, URINE (test code = 22720) SPECIMEN NUMBER: [id number]
[2024-03-05] MEDS ORDERED: ONDANSETRON 4 MG/2 ML VIAL ONE (05:54)
[2024-03-05] MEDS ORDERED: NA CHLORIDE 0.9% 1,000 ML ONE (05:55)
[2024-03-05] MEDS ORDERED: droPERidol 5 MG/2 ML VIAL ONE (05:55)
[2024-03-05 06:06] LABS: Absolute Lymphocytes (CBC) 1.5 K/uL (0.7-4.9); Absolute Monocytes 0.5 K/uL (0.1-1.3); Absolute Neutrophil 5.9 K/uL (1.8-8.0); Basophils % 0.4 % (0-1.3); Eosinophils % 0.1 % (0-4.4); Hemoglobin 13.1 g/dL (12.0-15.0); Lymphocytes % 18.7 % (15.3-44.8); MCH 30.9 pg (27.0-35.0); MCHC 34.5 g/dL (32.0-36.0); MCV 89.6 fL (80-100); Monocytes % 5.8 % (3.3-12.3); Platelets 287 thou/uL (152-406); RBC Red Blood Cell Count 4.24 M/uL (3.86-4.86); Red Cell Distribution Width 14.4 % (12.1-15.2)
[2024-03-05 06:21] LABS: Urine Bacteria None Seen /HPF (<20); Urine Bilirubin NEGATIVE (Negative); Urine Blood Negative (Negative); Urine Clarity Extremely Turbid (Clear); Urine Color Yellow (Yellow); Urine Crystals Unidentified Few /HPF (None Seen); Urine Culture Reflex Order NOT NEEDED; Urine Glucose NEGATIVE (Negative); Urine Ketones 1+ (Negative); Urine Microscopic Reflex YN ORDER UMIC; Urine Mucus Slight /HPF (None Seen); Urine Nitrite NEGATIVE (Negative); Urine Protein 1+ (Negative); Urine Urobilinogen Normal (Normal); Urine WBC <5 /HPF (<5); Urine WBC Clump Rare /HPF (None Seen); Urine Yeast (Budding) Few /HPF (None Seen)
[2024-03-05 06:25] LABS: Barbiturates NEGATIVE (NEGATIVE); Benzodiazepines POSITIVE (NEGATIVE); Cocaine NEGATIVE (NEGATIVE); METHAMPHETAM NEGATIVE (NEGATIVE); Methadone NEGATIVE (NEGATIVE); Opiates NEGATIVE (NEGATIVE); Phencyclidine NEGATIVE (NEGATIVE); THC Cannibis NEGATIVE (NEGATIVE)
[2024-03-05 06:25] LABS: Albumin 3.5 g/dL (3.4-5.0); Albumin/Globulin Ratio 0.8 (1.1-1.8); Anion Gap 13.4 mEq/L (5.0-15.0); Bilirubin Total 0.5 mg/dL (0.2-1.0); Globulin 4.5 g/dL (2.3-3.5); Potassium 3.4 mEq/L (3.5-5.1)
--- NOTE | 2024-03-05 06:54 | EDPHYS ---
Physician Documentation [facility] Name: Jaimie Amanda Age: 63 yrs Sex: Female : 1960 Arrival Date: 03/05/2024 Time: 05:37 Bed 20 Private MD: ED Physician Jessica Hansen HPI: 03/05 05:52 This 63 yrs old Female presents to ER via EMS with complaints of Abdominal Pain. sd2 05:52 63 yo F presents via EMS with CC of abdominal pain that started 3 days ago. However, pt sd2 does have a hx of chronic abdominal pain and reports this feels similar to prior episodes. Last CT scan was performed in September with no significant findings per records. Reports had n/v that has now resolved. Denies drug or ETOH use.. Historical: - Allergies: 05:45 hydrochlorothiazide; lg3 05:45 Toradol; lg3 - Home Meds: 05:45 Unable to obtain [Active]; lg3 - PMHx: 05:45 Anxiety; Chronic Abdominal Pain; Hypertensive disorder; Hypothyroidism; low NA; NIDDM; lg3 - PSHx: 05:45 Unable to Obtain; lg3 - Immunization history:: Adult Immunizations unknown. - Infectious Disease History:: Denies. - Social history:: Smoking status: Patient reports the use of cigarette tobacco products, smokes one pack cigarettes per day. Patient/guardian denies using alcohol, street drugs. ROS: 05:52 Constitutional: Negative for fever, chills, and weight loss, Eyes: Negative for injury, sd2 pain, redness, and discharge, Cardiovascular: Negative for chest pain, palpitations, and edema, Respiratory: Negative for shortness of breath, cough, wheezing. 05:52 : Negative for dysuria, urinary frequency, hesitancy, urgency and hematuria. MS/Extremity: Negative for injury and deformity, Skin: Negative for injury, rash, and discoloration, Neuro: Negative for headache, numbness and tingling. 05:52 Abdomen/GI: Positive for abdominal pain, nausea, vomiting, Negative for diarrhea, Exam: 05:52 Constitutional: This is a well developed, well nourished patient who is awake, alert, sd2 and in no acute distress. Head/Face: Normocephalic, atraumatic. Eyes: EOMI, normal conjunctiva bilaterally Chest/axilla: Normal chest wall appearance and motion. Nontender with no deformity. Cardiovascular: Regular rate and rhythm with a normal S1 and S2. No gallops, murmurs, or rubs. 2+ distal pulses. Respiratory: Lungs have equal breath sounds bilaterally, clear to auscultation and percussion. No rales, rhonchi or wheezes noted. No increased work of breathing, no retractions or nasal flaring. Abdomen/GI: Soft, non-tender, with normal bowel sounds. No guarding or rebound. No evidence of tenderness throughout. Skin: Warm, dry with normal turgor. Normal color with no rashes, no lesions, and no evidence of cellulitis. MS/ Extremity: Pulses equal, no cyanosis. Neurovascular intact. Full, normal range of motion. Psych: Awake, alert, with orientation to person, place and time. Behavior, mood, and affect are within normal limits. 05:59 ECG was reviewed by the Attending Physician. NSR, rate 71, no STEMI criteria sd2 Vital Signs: 05:43 BP 155 / 81; Pulse 75; Resp 17 S; Temp 98.3(O); Pulse Ox 100% on R/A; Weight 68.04 kg lg3 (R); Height 5 ft. 7 in. (R); Pain 10/10; 06:38 BP 158 / 85; Pulse 72; Resp 16 S; Pulse Ox 95% on R/A; lg3 05:43 Body Mass Index 23.49 (68.04 kg, 170.18 cm) lg3 05:43 Pain Scale: Adult lg3 MDM: 05:44 Medical Screening Exam initiated sd2 05:52 Differential diagnosis: chronic abdominal pain, colitis, diverticulitis, GB pathology, sd2 electrolyte abnormality among others. Data reviewed: vital signs, nurses notes, EMS record, lab test result(s), EKG. I considered the following discharge prescriptions or medication management in the emergency department Medications were administered in the Emergency Department. See MAR. Historians other than the Patient: EMS: . Care significantly affected by the following chronic conditions: Diabetes, Hypertension. 06:51 Counseling: I had a detailed discussion with the patient and/or guardian regarding the sd2 historical points, exam findings, and any diagnostic results supporting the discharge/admit diagnosis, lab results, the need for further work-up and treatment in the hospital. ED course: Labs reviewed. Na decreased to 124. IVFs stopped at 500 mL given. Pt prior Na 128 chronically so she is lower than normal. Will plan for admission for slow correction. Hospitalist contacted regarding admission.. 03/05 05:52 Order name: CBC with Diff; Complete Time: 06:29 sd2 03/05 05:52 Order name: CMP; Complete Time: 06:29 sd2 03/05 05:52 Order name: Lipase; Complete Time: 06:29 sd2 03/05 05:52 Order name: Troponin High Sensitivity; Complete Time: 06:29 sd2 03/05 05:52 Order name: Urinalysis w/ reflexes; Complete Time: 06:29 sd2 03/05 05:52 Order name: UDS; Complete Time: 06:29 sd2 03/05 07:53 Order name: Urinalysis w/ reflexes EDMS 03/05 07:53 Order name: CBC with Automated Diff EDMS 03/05 07:53 Order name: CBC with Automated Diff EDMS 03/05 07:53 Order name: Comprehensive Metabolic Panel EDMS 03/05 07:53 Order name: Comprehensive Metabolic Panel EDMS 03/05 07:53 Order name: Magnesium EDMS 03/05 07:53 Order name: Magnesium EDMS 03/05 07:58 Order name: Basic Metabolic Panel EDMS 03/05 07:58 Order name: Magnesium EDMS 03/05 05:52 Order name: EKG - Nurse/Tech; Complete Time: 05:59 sd2 03/05 06:31 Order name: Misc. Order: Stop IVF bolus at 500 mL; Complete Time: 06:39 sd2 Administered Medications: 06:13 Drug: NS 0.9% IV 1000 ml IV at 1 bolus Per protocol; to be given as a bolus over 60 lg3 minutes Route: IV; Rate: 1 bolus; Site: left antecubital; 06:39 Follow up: Response: No adverse reaction; IV Status: Completed infusion; IV Intake: lg3 500ml 06:13 Drug: Droperidol IVP 1.25 mg IVP once Route: IVP; Site: left antecubital; lg3 06:39 Follow up: Response: No adverse reaction; Marked relief of symptoms lg3 06:13 Drug: Ondansetron IVP 4 mg IVP once; over 2 minutes Route: IVP; Site: left antecubital; lg3 06:39 Follow up: Response: No adverse reaction; Marked relief of symptoms lg3 Disposition Summary: 03/05/24 06:53 Hospitalization Ordered Notes: Hospitalization Status: Inpatient Admission sd2 Provider: Joseph Gustafson2 Location: Telemetry/MedSurg (Inpatient) sd2 Condition: Stable sd2 Problem: an acute exacerbation sd2 Symptoms: are unchanged sd2 Bed/Room Type: Standard pr2 Room Assignment: 230(03/05/24 08:02) eb Diagnosis - Hypo-osmolality and hyponatremia sd2 - Chronic abdominal pain sd2 Forms: - Medication Reconciliation Form sd2 - SBAR form sd2 - Leadership Thank You Letter sd2 Signatures: Dispatcher [employer] EDMS Nikkie Merrill Lacie RN RN lg3 Jessica Hansen MD MD sd2 Corrections: (The following items were deleted from the chart) 05:52 05:52 CBC+H.LAB.BRZ ordered. EDMS EDMS 05:52 05:52 COMPREHENSIVE METABOLIC PANEL+C.LAB.BRZ ordered. EDMS EDMS 05:52 05:52 LIPASE+C.LAB.BRZ ordered. EDMS EDMS 05:52 05:52 Troponin High Sensitivity+C.LAB.BRZ ordered. EDMS EDMS 05:52 05:52 Urinalysis+U.LAB.BRZ ordered. EDMS EDMS 05:52 05:52 URINE DRUG SCREEN+UC.LAB.BRZ ordered. EDMS EDMS 08:02 06:53 sd2 eb 08:15 07:50 Abdomen ordered. EDMS EDMS
--- NOTE | 2024-03-05 06:54 | ER ---
Nurse's Notes [facility] Name: Jaimie Amanda Age: 63 yrs Sex: Female : 1960 Arrival Date: 03/05/2024 Time: 05:37 Bed 20 Private MD: Diagnosis: Hypo-osmolality and hyponatremia;Chronic abdominal pain Presentation: 03/05 05:43 Chief complaint: Patient states: generalized abdominal pain X2 days. denies N/V/D. lg3 Coronavirus screen: Client denies travel out of the [place] in the last 14 days. At this time, the client does not indicate any symptoms associated with coronavirus-19. Ebola Screen: No symptoms or risks identified at this time. Initial Sepsis Screen: Does the patient meet any 2 criteria? No. Patient's initial sepsis screen is negative. Does the patient have a suspected source of infection? No. Patient's initial sepsis screen is negative. Risk Assessment: Do you want to hurt yourself or someone else? Patient reports no desire to harm self or others. Onset of symptoms was March 03, 2024. 05:43 Method Of Arrival: EMS: [facility] lg3 05:43 Acuity: ZHEN 3 lg3 Triage Assessment: 05:45 General: Appears in no apparent distress. Behavior is anxious, fussy, restless. Pain: lg3 Complains of pain in abdomen Pain currently is 7 out of 10 on a pain scale. EENT: No deficits noted. No signs and/or symptoms were reported regarding the EENT system. Neuro: Jorgensen Agitation-Sedation Scale (RASS): +1 Restless Level of Consciousness is awake, alert, obeys commands, Oriented to person, place, time, situation. Cardiovascular: No deficits noted. Denies chest pain, shortness of breath, Capillary refill < 3 seconds Clubbing of nail beds is absent JVD is absent Patient's skin is warm and dry. Respiratory: No deficits noted. Airway is patent Respiratory effort is even, unlabored, Respiratory pattern is regular, symmetrical. GI: Abdomen is round non-distended, Reports lower abdominal pain, upper abdominal pain, Patient currently denies diarrhea, nausea, vomiting. : No signs and/or symptoms were reported regarding the genitourinary system. Derm: No deficits noted. No signs and/or symptoms reported regarding the dermatologic system. Skin is intact, is thin, Skin is dry, Skin is normal, Skin temperature is warm. Musculoskeletal: No deficits noted. No signs and/or symptoms reported regarding the musculoskeletal system. Circulation, motion, and sensation intact. Range of motion: intact in all extremities. Historical: - Allergies: 05:45 hydrochlorothiazide; lg3 05:45 Toradol; lg3 - Home Meds: 05:45 Unable to obtain [Active]; lg3 - PMHx: 05:45 Anxiety; Chronic Abdominal Pain; Hypertensive disorder; Hypothyroidism; low NA; NIDDM; lg3 - PSHx: 05:45 Unable to Obtain; lg3 - Immunization history:: Adult Immunizations unknown. - Infectious Disease History:: Denies. - Social history:: Smoking status: Patient reports the use of cigarette tobacco products, smokes one pack cigarettes per day. Patient/guardian denies using alcohol, street drugs. Screenin:47 [facility] ED Fall Risk Assessment (Adult) History of falling in the last 3 months, lg3 including since admission No falls in past 3 months (0 pts) Confusion or Disorientation No (0 pts) Intoxicated or Sedated No (0 pts) Impaired Gait No (0 pts) Mobility Assist Device Used No (0 pt) Altered Elimination No (0 pt) Score/Fall Risk Level 0 - 2 = Low Risk Oriented to surroundings, Maintained a safe environment, Educated pt \T\ family on fall prevention, incl call for assistance when getting out of bed, Assessed \T\ reinforced patient's understanding of fall precautions, Provided non-skid footwear. Abuse screen: Denies threats or abuse. Denies injuries from another. Nutritional screening: No deficits noted. Tuberculosis screening: No symptoms or risk factors identified. Assessment: 05:47 General: see triage assessment. lg3 06:40 Reassessment: Patient appears in no apparent distress at this time. Patient and/or lg3 family updated on plan of care and expected duration. Pain level reassessed. Patient is alert, oriented x 3, equal unlabored respirations, skin warm/dry/pink. Patient states symptoms have improved. 07:04 General: Appears in no apparent distress. comfortable, Behavior is calm, cooperative, ld1 appropriate for age. Neuro: Level of Consciousness is awake, alert, obeys commands, Oriented to person, place, time, situation, Appropriate for age. Respiratory: Airway is patent Respiratory effort is even, unlabored. GI:. : No signs and/or symptoms were reported regarding the genitourinary system. EENT: No signs and/or symptoms were reported regarding the EENT system. Derm: No signs and/or symptoms reported regarding the dermatologic system. Musculoskeletal: No signs and/or symptoms reported regarding the musculoskeletal system. Vital Signs: 05:43 BP 155 / 81; Pulse 75; Resp 17 S; Temp 98.3(O); Pulse Ox 100% on R/A; Weight 68.04 kg lg3 (R); Height 5 ft. 7 in. (R); Pain 10/10; 06:38 BP 158 / 85; Pulse 72; Resp 16 S; Pulse Ox 95% on R/A; lg3 05:43 Body Mass Index 23.49 (68.04 kg, 170.18 cm) lg3 05:43 Pain Scale: Adult lg3 ED Course: 05:42 Patient arrived in ED. lg3 05:43 Jessica Hansen MD is Attending Physician. sd2 05:44 Triage completed. lg3 05:45 Arm band placed on right wrist. lg3 05:47 Patient has correct armband on for positive identification. Placed in gown. Bed in low lg3 position. Call light in reach. Side rails up X 1. Client placed on continuous cardiac and pulse oximetry monitoring. NIBP monitoring applied. Door closed. Noise minimized. Warm blanket given. Pillow given. 05:47 Maintain EMS IV. Dressing intact. Good blood return noted. Site clean \T\ dry. Gauge \T\ lg 3 site: 20 LAC. Flushed with 10 mL NS. 05:59 EKG done, by clinical tech. af3 06:13 Initial lab(s) drawn, by ri, sent to lab. Urine collected: clean catch specimen, clear. lg3 06:40 Assisted to bathroom. lg3 06:52 Joseph Gustafson MD is Hospitalizing Provider. sd2 09:07 No provider procedures requiring assistance completed. Patient admitted, IV remains in ld1 place. Administered Medications: 06:13 Drug: NS 0.9% IV 1000 ml IV at 1 bolus Per protocol; to be given as a bolus over 60 lg3 minutes Route: IV; Rate: 1 bolus; Site: left antecubital; 06:39 Follow up: Response: No adverse reaction; IV Status: Completed infusion; IV Intake: lg3 500ml 06:13 Drug: Droperidol IVP 1.25 mg IVP once Route: IVP; Site: left antecubital; lg3 06:39 Follow up: Response: No adverse reaction; Marked relief of symptoms lg3 06:13 Drug: Ondansetron IVP 4 mg IVP once; over 2 minutes Route: IVP; Site: left antecubital; lg3 06:39 Follow up: Response: No adverse reaction; Marked relief of symptoms lg3 Medication: 09:07 VIS not applicable for this client. ld1 Intake: 06:39 IV: 500ml; Total: 500ml. lg3 Outcome: 06:53 Decision to Hospitalize by Provider. sd2 09:07 Admitted to Med/surg accompanied by tech, via wheelchair, room 230, Report called to ld1 Faxed 09:07 Condition: stable 09:07 Instructed on the need for admit, 09:07 Patient left the ED. ld1 Signatures: Jocy Mehta RN RN lg3 Maritza Singh RN RN ld1 Jessica Hansen MD MD sd2 Cherelle Childress
--- NOTE | 2024-03-05 07:45 | P.HP ---
Certification for Inpatient Patient admitted to: Observation Practitioner: I am a practitioner with admitting privileges, knowledge of patient current condition, hospital course, and medical plan of care. Services: Services provided to patient in accordance with Admission requirements found in Title 42 Section 412.3 of the Code of Federal Regulations Patient History Date of Service: 03/05/24 Reason for admission: Abdominal pain, hyponatremia History of Present Illness: 62-year-old female with a past medical history of hypertension, hypothyroidism, chronic abdominal pain, hepatitis, chronic alcohol misuse, and frequent hyponatremia, hypothyroidism, diabetes, anxiety. She presents to the ED today with upper abdominal pain. She reports epigastric abdominal pain, started 2 days ago, reports associated poor appetite. She denies nausea vomiting. Denies alcohol intake, recreational drug use, she reports history of recurrent abdominal pain. Plan to admit for abdominal pain, hyponatremia, with nephrology to consult. Allergies No Known Allergies Allergy (Verified 11/24/23 00:32) Home Medications: Levothyroxine Sodium [Synthroid] 137 mcg PO [id number] 03/10/21 OXcarbazepine [Trileptal] 1,200 mg PO BEDTIME 07/29/22 OXcarbazepine [Trileptal] 600 mg PO DAILY 07/29/22 Metformin HCl [Glucophage*] 500 mg PO BIDWM 09/25/22 Ondansetron [Zofran (Odt)*] 4 mg PO Q8H PRN 05/10/23 Trazodone HCl 100 mg PO BEDTIME 05/10/23 ALPRAZolam [Xanax*] 1 mg PO BID 11/24/23 Fenofibrate [Tricor*] 160 mg PO BEDTIME 11/24/23 Linaclotide [Linzess] 290 mcg PO DAILY 11/24/23 Risperidone [Risperdal] 2 mg PO BID 11/24/23 Semaglutide [Ozempic] 0.5 mg SQ Q7D 11/24/23 Venlafaxine HCl [Effexor] 100 mg PO TIDWM 11/24/23 cloNIDine HCL [Catapres*] 0.3 mg PO TID 11/24/23 Pantoprazole [Protonix Tab] 40 mg PO DAILY #30 tab 11/25/23 - Past Medical/Surgical History Diabetic: Yes -: Hepatitis B -: Anxiety -: HTN -: Hypothyroidism -: Alcoholic induced seizures -: NIDDM -: Hyponatremia -: Thyroidectomy -: Plastic surgery breast -: hernia repair Psychosocial/ Personal History: Patient lives at home with her mother - Family History Mother -: Hypertension, Diabetes, Cancer Notes: Thyroid, Knee replacement Father -: Heart disease, Hypertension, Diabetes - Social History Alcohol use: No CD- Drugs: No Caffeine use: Yes Review of Systems 10-point ROS is otherwise unremarkable Physical Examination - Physical Exam General: Alert, In no apparent distress, Oriented x3 HEENT: Atraumatic, Normocephalic, PERRLA Respiratory: Clear to auscultation bilaterally, Normal air movement Cardiovascular: Normal pulses, Regular rate/rhythm, Normal S1 S2 Gastrointestinal: Normal bowel sounds, Other (Epigastric abdominal tenderness) Musculoskeletal: No clubbing, No swelling Integumentary: No breakdown, No significant lesion Neurological: Normal speech, Normal strength at 5/5 x4 extr, Normal tone - Studies Laboratory Data (last 24 hrs) 03/05/24 03/05/24 05:44 05:44 WBC 7.80 Hgb 13.1 Hct 38.0 Plt Count 287 Sodium 124 L Potassium 3.4 L BUN 8 Creatinine 0.53 L Glucose 124 H Total Bilirubin 0.5 AST 27 ALT 39 Alkaline Phosphatase 103 Lipase 18 Assessment and Plan - Plan - Plan Acute epigastric abdominal pain She refused CT Zofran as needed, PPI IV hydration, as needed analgesics Hyponatremia: acute on chronic NS at 100ml/hr Trend Na seizure precautions Nephrology consult Diabetes type 2 Accu-Cheks, sliding scale Accelerated hypertension Hydralazine as needed Monitor closely Continue home medications Hypothyroidism: chronic Continue regular home medications DVT prophylaxis: SCDs GI/DVT prophylaxis Discharge Plan: Home Plan to discharge in: 48 Hours - Advance Directives Does patient have a Living Will: No Does patient have a Durable POA for Healthcare: No - Code Status/Comfort Care Code Status: Full Code Time Spent Managing Pts Care (In Minutes): 48 Discharge Plan: Home - Advance Directives Does patient have a Living Will: No Does patient have a Durable POA for Healthcare: No - Code Status/Comfort Care Code Status: Full Code Critical Care: No Time Spent Managing Pts Care (In Minutes): 55
[2024-03-05] MEDS ORDERED: ONDANSETRON 4 MG/2 ML VIAL IV PRN (07:50)
[2024-03-05] MEDS: NA CHLORIDE 0.9% 1,000 ML IV SCH ×2 (08:00→09:53)
[2024-03-05] MEDS ORDERED: SODIUM CHLORIDE 0.9% 10ML INJ IV PRN (08:18)
[2024-03-05 09:14] VITALS: O2SAT 95
[2024-03-05 09:28] VITALS: BMI 23.5
[2024-03-05] MEDS: CLONIDINE HCL 0.3 MG TAB ONE (09:45)
[2024-03-05] MEDS: CLONIDINE HCL 0.3 MG TAB PO SCH ×2 (09:52→14:03)
[2024-03-05] MEDS: POTASSIUM 25 MEQ EFFERV TAB PO ONE (09:52)
[2024-03-05] MEDS: PANTOPRAZOLE 40 MG INJ IVP SCH (09:52)
[2024-03-05] MEDS ORDERED: D10W 125 ML IV PRN (09:57)
[2024-03-05] MEDS ORDERED: GLUCAGON 1 MG/VIAL IM PRN (09:57)
[2024-03-05] MEDS: ACETAMINOPHEN 500 MG TAB PO PRN (10:08)
[2024-03-05] MEDS: ALPRAZOLAM 1 MG TABLET PO SCH (10:09)
[2024-03-05] MEDS: INSULIN REGULAR (HUMAN) 100 UNIT/ML SQ SCH (11:30)
--- NOTE | 2024-03-05 13:37 | P.CNS ---
Date of Consult: 03/05/24 Reason for Consult: HypoNA Chief Complaint: Abdominal pain, hyponatremia History of Present Illness: 62-year-old female with a past medical history of hypertension, hypothyroidism, chronic abdominal pain, hepatitis, chronic alcohol misuse, and frequent hypona tremia, hypothyroidism, diabetes, anxiety. who presented for Abd pain , N/V unable to tolerate any food for the last two day.. pt has hx of of alcohol use , mentioned she has quite. by lab NA was 124 for which nephrology has been consulted .. upon my evaluation , pt feels ok , no CP or SOB , no abd pain , no urinary symptoms , no edema . Allergies No Known Allergies Allergy (Verified 11/24/23 00:32) Home Medications: Levothyroxine Sodium [Synthroid] 137 mcg PO [id number] 03/10/21 OXcarbazepine [Trileptal] 1,200 mg PO BEDTIME 07/29/22 OXcarbazepine [Trileptal] 600 mg PO DAILY 07/29/22 Metformin HCl [Glucophage*] 500 mg PO BIDWM 09/25/22 Ondansetron [Zofran (Odt)*] 4 mg PO Q8H PRN 05/10/23 Trazodone HCl 100 mg PO BEDTIME 05/10/23 ALPRAZolam [Xanax*] 1 mg PO BID 11/24/23 Fenofibrate [Tricor*] 160 mg PO BEDTIME 11/24/23 Linaclotide [Linzess] 290 mcg PO DAILY 11/24/23 Risperidone [Risperdal] 2 mg PO BID 11/24/23 Semaglutide [Ozempic] 0.5 mg SQ Q7D 11/24/23 Venlafaxine HCl [Effexor] 100 mg PO TIDWM 11/24/23 cloNIDine HCL [Catapres*] 0.3 mg PO TID 11/24/23 Pantoprazole [Protonix Tab] 40 mg PO DAILY #30 tab 11/25/23 - Past Medical/Surgical History Diabetic: Yes -: Hepatitis B -: Anxiety -: HTN -: Hypothyroidism -: Alcoholic induced seizures -: DM -: Hyponatremia -: Thyroidectomy -: Plastic surgery breast -: hernia repair Psychosocial/ Personal History: Patient lives at home with her mother - Family History Mother Medical History: Hypertension, Diabetes, Cancer Notes: Thyroid, Knee replacement Father Medical History: Heart disease, Hypertension, Diabetes - Social History Smoking Status: Current every day smoker Alcohol use: No CD- Drugs: No Caffeine use: Yes Place of Residence: Home Review of Systems Unremarkable Physical Examination Temp Pulse Resp BP Pulse Ox 98.5 F 74 20 191/87 H 94 03/05/24 08:34 03/05/24 09:52 03/05/24 08:34 03/05/24 09:52 03/05/24 08:34 General: Alert, In no apparent distress, Oriented x3 HEENT: Atraumatic Neck: Supple, 2+ carotid pulse no bruit Respiratory: Clear to auscultation bilaterally, Normal air movement Cardiovascular: No edema, Normal pulses Gastrointestinal: Normal bowel sounds, Soft and benign Musculoskeletal: No swelling, No contractures, No erythema, No tenderness, No warmth Integumentary: No rashes Neurological: Normal speech Laboratory Data (last 24 hrs) 03/05/24 03/05/24 05:44 05:44 WBC 7.80 Hgb 13.1 Hct 38.0 Plt Count 287 Sodium 124 L Potassium 3.4 L BUN 8 Creatinine 0.53 L Glucose 124 H Total Bilirubin 0.5 AST 27 ALT 39 Alkaline Phosphatase 103 Lipase 18 Conclusions/Impression: hypoA : frequent admission with hyponA , pt looks hypovolemic to exam mentioned she quite drinking alcohol , will check UrOsm , serum OSM , and urine NA currently on NS at 75 cc , pending repeat NA check encourage pt to increase oral intake pt was taking oral salt tablets at home mild hypoK : please replace HYpertensive : resume home meds clonidine and losartan at 100 mg .. Kidney function : stable
[2024-03-05] MEDS: SODIUM CHLORIDE 1 GM TAB PO SCH (14:04)
[2024-03-05] MEDS ORDERED: HOME MED 1 EA UNK (Trazodone Hcl [Trazodone Hcl] 100 MG Tablet) PO SCH (21:00)
[2024-03-05] MEDS: TRAZODONE 50 MG TABLET PO SCH (21:05)
[2024-03-06 04:31] LABS: Absolute Eosinophils 0.1 K/uL (0-0.5); Absolute Lymphocytes (CBC) 1.6 K/uL (0.7-4.9); Absolute Monocytes 0.5 K/uL (0.1-1.3); Absolute Neutrophil 3.3 K/uL (1.8-8.0); Basophils % 0.2 % (0-1.3); Hemoglobin 11.9 g/dL (12.0-15.0); Lymphocytes % 28.3 % (15.3-44.8); MCH 31.8 pg (27.0-35.0); MCHC 34.9 g/dL (32.0-36.0); MPV 6.5 fL (7.6-11.3); Monocytes % 9.8 % (3.3-12.3); Neutrophils % 60.7 % (41.7-73.7); Nucleated Red Blood Cells % 0.1 % (0-0); Platelets 268 thou/uL (152-406); RBC Red Blood Cell Count 3.74 M/uL (3.86-4.86); Red Cell Distribution Width 14.5 % (12.1-15.2)
[2024-03-06 04:47] LABS: Albumin 2.9 g/dL (3.4-5.0); Albumin/Globulin Ratio 0.8 (1.1-1.8); Anion Gap 8.5 mEq/L (5.0-15.0); Bilirubin Total 0.4 mg/dL (0.2-1.0); Globulin 3.6 g/dL (2.3-3.5); Magnesium 1.8 mg/dL (1.6-2.4); Potassium 3.5 mEq/L (3.5-5.1); Protein, Total 6.5 g/dL (6.4-8.2)
[2024-03-06] MEDS: LEVOTHYROXINE SOD 0.025 MG TAB PO SCH (05:44)
[2024-03-06] MEDS: LEVOTHYROXINE SOD 0.112 MG TAB PO SCH (05:45)
[2024-03-06] MEDS ORDERED: HOME MED 1 EA UNK (Levothyroxine Sodium [Synthroid] 137 MCG Tablet) PO SCH (06:00)
[2024-03-06] MEDS: POTASSIUM CL SA 10 MEQ TAB PO ONE (09:08)
--- NOTE | 2024-03-06 09:45 | P.DS ---
Admission Date: 03/05/24 Discharge Date: 03/06/24 Disposition: ROUTINE DISCHARGE Discharge Condition: GOOD Reason for Admission: Abdominal pain, hyponatremia Brief History of Present Illness: 62-year-old female with a past medical history of hypertension, hypothyroidism, chronic abdominal pain, hepatitis, chronic alcohol misuse, and frequent hyponatremia, hypothyroidism, diabetes, anxiety. She presents to the ED today with upper abdominal pain. She reports epigastric abdominal pain, started 2 days ago, reports associated poor appetite. She denies nausea vomiting. Denies alcohol intake, recreational drug use, she reports history of recurrent abdominal pain. Plan to admit for abdominal pain, hyponatremia, with nephrology to consult. - Physical Exam General: Alert, In no apparent distress, Oriented x3 HEENT: Atraumatic, Normocephalic, PERRLA Respiratory: Clear to auscultation bilaterally, Normal air movement Cardiovascular: Normal pulses, Regular rate/rhythm, Normal S1 S2 Gastrointestinal: Normal bowel sounds, Other (Epigastric abdominal tenderness) Musculoskeletal: No clubbing, No swelling Integumentary: No breakdown, No significant lesion Neurological: Normal speech, Normal strength at 5/5 x4 extr, Normal tone Hospital Course: 62-year-old female with a past medical history of hypertension, hypothyroidism, chronic abdominal pain, hepatitis, chronic alcohol misuse, and frequent hyponatremia, hypothyroidism, diabetes, anxiety. She presents to the ED today with upper abdominal pain. She reports epigastric abdominal pain, started 2 days ago, reports associated poor appetite. She denies nausea vomiting. Denies alcohol intake, recreational drug use, she reports history of recurrent abdominal pain. Plan to admit for abdominal pain, hyponatremia, with nephrology to consult. She was treated with IV fluids, sodium improved, epigastric pain improved with as needed analgesics. Patient refused CT scan, plan to discharge home, follow-up with PCP in 1 week, Sodium improved from 124-->129 Epigastric pain, PPI daily, avoid high-fat diet follow-up with GI after Diabetes type 2, resume home meds Hypertension resume home medication For thyroidism resume home medications Continue home medicines as previously prescribed GOAL: Clear understanding of disease process INSTRUCTIONS: Physician Discharge Instructions: -Follow-up with GI after discharge for chronic abdominal pain -Follow-up with PCP in 1 to 2 weeks -Please call Dr. Gustafson at [phone] if any questions regarding hospital stay -Please call nursing station at [phone] if any nursing or medication questions -Return to the emergency room if symptoms worsen Diet: ADA, low sodium Activity: Fall precautions Vital Signs/Physical Exam: Temp Pulse Resp BP Pulse Ox 98.4 F 70 22 H 162/82 H 93 03/06/24 08:00 03/06/24 08:00 03/06/24 08:00 03/06/24 09:10 03/06/24 08:00 Laboratory Data at Discharge: WBC 5.50 thou/uL (4.3-10.9) 03/06/24 04:14 Hgb 11.9 g/dL (12.0-15.0) L D 03/06/24 04:14 Hct 34.0 % (36.0-45.0) L 03/06/24 04:14 Plt Count 268 thou/uL (152-406) 03/06/24 04:14 Sodium 129 mEq/L (136-145) L D 03/06/24 04:14 Potassium 3.5 mEq/L (3.5-5.1) 03/06/24 04:14 BUN 12 mg/dL (7-18) 03/06/24 04:14 Creatinine 0.61 mg/dL (0.55-1.02) 03/06/24 04:14 Glucose 136 mg/dL (74-106) H 03/06/24 04:14 Phosphorus 3.4 mg/dL (2.5-4.9) 03/06/24 04:14 Magnesium 1.8 mg/dL (1.6-2.4) 03/06/24 04:14 Total Bilirubin 0.4 mg/dL (0.2-1.0) 03/06/24 04:14 AST 26 U/L (15-37) 03/06/24 04:14 ALT 43 U/L (13-56) 03/06/24 04:14 Alkaline Phosphatase 81 U/L (45-117) D 03/06/24 04:14 Lipase 18 U/L (13-75) 03/05/24 05:44 Home Medications: Levothyroxine Sodium [Synthroid] 137 mcg PO [id number] 03/10/21 OXcarbazepine [Trileptal] 1,200 mg PO BEDTIME 07/29/22 OXcarbazepine [Trileptal] 600 mg PO DAILY 07/29/22 Metformin HCl [Glucophage*] 500 mg PO BIDWM 09/25/22 Ondansetron [Zofran (Odt)*] 4 mg PO Q8H PRN 05/10/23 Trazodone HCl 100 mg PO BEDTIME 05/10/23 ALPRAZolam [Xanax*] 1 mg PO BID 11/24/23 Fenofibrate [Tricor*] 160 mg PO BEDTIME 11/24/23 Linaclotide [Linzess] 290 mcg PO DAILY 11/24/23 Risperidone [Risperdal] 2 mg PO BID 11/24/23 Semaglutide [Ozempic] 0.5 mg SQ Q7D 11/24/23 Venlafaxine HCl [Effexor] 100 mg PO TIDWM 11/24/23 cloNIDine HCL [Catapres*] 0.3 mg PO TID 11/24/23 Pantoprazole [Protonix Tab*] 40 mg PO DAILY #30 tab 11/25/23 Sodium Chloride Tab [Sodium Chloride*] 1 gm PO TID #90 tab 03/06/24 New Medications: Sodium Chloride Tab [Sodium Chloride*] 1 gm PO TID #90 tab Physician Discharge Instructions: PROBLEM: low sodium ,abdominal pain GOAL: Clear understanding of disease process INSTRUCTIONS: Diet: AHA Activity: Fall precautions 62-year-old female with a past medical history of hypertension, hypothyroidism, chronic abdominal pain, hepatitis, chronic alcohol misuse, and frequent hyponatremia, hypothyroidism, diabetes, anxiety. She presents to the ED today with upper abdominal pain. She reports epigastric abdominal pain, started 2 days ago, reports associated poor appetite. She denies nausea vomiting. Denies alcohol intake, recreational drug use, she reports history of recurrent abdominal pain. Plan to admit for abdominal pain, hyponatremia, with nephrology to consult. She was treated with IV fluids, sodium improved, epigastric pain improved with as needed analgesics. Patient refused CT scan, plan to discharge home, follow-up with PCP in 1 week, Sodium improved from 124-->129 Epigastric pain, PPI daily, avoid high-fat diet follow-up with GI after Diabetes type 2, resume home meds Hypertension resume home medication For thyroidism resume home medications Continue home medicines as previously prescribed GOAL: Clear understanding of disease process INSTRUCTIONS: Physician Discharge Instructions: -Follow-up with GI after discharge for chronic abdominal pain -Follow-up with PCP in 1 to 2 weeks -Please call Dr. Gustafson at [phone] if any questions regarding hospital stay -Please call nursing station at [phone] if any nursing or medication questions -Return to the emergency room if symptoms worsen Diet: ADA, low sodium Activity: Fall precautions Followup: NONE,NONE [Primary Care Provider] - Will Valdez MD [ACTIVE - CAN ADMIT] - Time spent managing pt's care (in minutes): 45
[2024-03-06] MEDS: MORPHINE 2 MG/ML SYR IV PRN (12:25)
[2024-03-06 12:50] VITALS: TEMP 97.6
[2024-03-06] MEDS: HYDRALAZINE HCL 20 MG/ML VIAL IV PRN (13:30)
[2024-03-06 14:36] VITALS: BP 132/71
--- NOTE | 2024-03-07 11:16 | EKG ---
Test Date: 2024-03-05 Test Time: 05:57:03 Glove Parts Inspector: AF MEASUREMENT RESULTS: Intervals: Rate: 71 LA: 168 QRSD: 94 QT: 460 QTc: 499 Mcbee: P: 74 LA: 168 QRS: 73 T: 72 INTERPRETIVE STATEMENTS: Normal sinus rhythm Nonspecific ST and T wave abnormality Prolonged QT Abnormal ECG Compared to ECG 08/27/2023 14:02:48 ST (T wave) deviation now present Prolonged QT interval now present Electronically Signed On 03-07-24 11:12:03 DIRECTOR VISUAL by Beny Ward
== END 2024-03-06 14:56 | disposition home or self-care (01) ==
LOC: ER 05:37 → ERHOLD 07:49 → 2ND 08:27
PROVIDERS: ADMIT Hospitalist; ATTEND Hospitalist
DX: R10.13 Epigastric pain (principal); E87.1 Hypo-osmolality and hyponatremia; I10 Essential (primary) hypertension; E03.9 Hypothyroidism, unspecified; K75.9 Inflammatory liver disease, unspecified; F10.90 Alcohol use, unspecified, uncomplicated; E11.9 Type 2 diabetes mellitus without complications; F41.9 Anxiety disorder, unspecified; E87.6 Hypokalemia
CPT/HCPCS: 85025 ×2; 81001; 36415; 83735; 84100; 82947; 84484; 83690; 80053 ×2; 80307; J0360; J2470 ×3; J2270; J2405; J1790; J7030 ×3; 93005; G0378

== ENCOUNTER 2024-06-17 03:30 | Emergency (ER) | payer MEDICAID, OTHER ==
[2024-06-17 04:29] LABS: Absolute Eosinophils 0.1 K/uL (0-0.5); Absolute Lymphocytes (CBC) 3.2 K/uL (0.7-4.9); Absolute Monocytes 0.4 K/uL (0.1-1.3); Absolute Neutrophil 3.4 K/uL (1.8-8.0); Basophils % 0.5 % (0-1.3); Eosinophils % 1.5 % (0-4.4); Hematocrit 40.1 % (36.0-45.0); Hemoglobin 13.7 g/dL (12.0-15.0); Lymphocytes % 44.7 % (15.3-44.8); MCH 30.8 pg (27.0-35.0); MCHC 34.3 g/dL (32.0-36.0); MPV 7.1 fL (7.6-11.3); Monocytes % 6.2 % (3.3-12.3); Neutrophils % 47.1 % (41.7-73.7); Nucleated Red Blood Cells % 0.1 % (0-0); Platelets 270 thou/uL (152-406); RBC Red Blood Cell Count 4.45 M/uL (3.86-4.86); Red Cell Distribution Width 13.9 % (12.1-15.2)
--- NOTE | 2024-06-17 05:16 | ER ---
Nurse's Notes [facility] Name: Jaimie Amanda Age: 63 yrs Sex: Female : 1960 Arrival Date: 06/17/2024 Time: 03:30 Bed 7 Private MD: Diagnosis: Abdominal pain chronic, AMA Presentation: 06/17 03:35 Chief complaint: Patient states: my stomach has been hurting for 2 days. bm8 03:35 Coronavirus screen: At this time, the client does not indicate any symptoms associated bm8 with coronavirus-19. Ebola Screen: Patient negative for fever greater than or equal to 101.5 degrees Fahrenheit, and additional compatible Ebola Virus Disease symptoms Patient denies exposure to infectious person. Patient denies travel to an Ebola-affected area in the 21 days before illness onset. No symptoms or risks identified at this time. Initial Sepsis Screen: Does the patient meet any 2 criteria? No. Patient's initial sepsis screen is negative. Does the patient have a suspected source of infection? No. Patient's initial sepsis screen is negative. Risk Assessment: Do you want to hurt yourself or someone else? Patient reports no desire to harm self or others. Onset of symptoms was June 14, 2024. 03:35 Method Of Arrival: Ambulatory bm8 03:35 Acuity: ZHEN 3 bm8 Triage Assessment: 03:51 General: Appears in no apparent distress. comfortable, Behavior is cooperative, bm8 appropriate for age, drowsy. Pain: Complains of pain in umbilical area and right lower quadrant Pain currently is 7 out of 10 on a pain scale. Quality of pain is described as aching, crampy, dull, Pain began 2-3 days ago. EENT: No deficits noted. No signs and/or symptoms were reported regarding the EENT system. Neuro: Jorgensen Agitation-Sedation Scale (RASS): -1 Drowsy Level of Consciousness is awake, obeys commands, drowsy. Oriented to person, place, time, situation, Appropriate for age. Cardiovascular: Denies chest pain. Respiratory: Airway is patent Respiratory effort is even, unlabored, Respiratory pattern is regular, symmetrical. GI: Abdomen is round non-distended, Last BM was June 16, 2024. Bowel sounds present X 4 quads. Abd is soft Abdomen is tender to palpation in umbilical area and right lower quadrant Reports lower abdominal pain. : No signs and/or symptoms were reported regarding the genitourinary system. Derm: No signs and/or symptoms reported regarding the dermatologic system. Musculoskeletal: No signs and/or symptoms reported regarding the musculoskeletal system. Historical: - Allergies: 03:51 hydrochlorothiazide; bm8 03:51 Toradol; bm8 - Home Meds: 03:51 Unable to obtain [Active]; bm8 - PMHx: 03:51 Anxiety; Chronic Abdominal Pain; Hypertensive disorder; Hypothyroidism; low NA; NIDDM; bm8 - PSHx: 03:51 None; bm8 - Immunization history:: Adult Immunizations up to date. - Infectious Disease History:: Denies. - Social history:: Smoking status: unknown. Screenin:18 [facility] ED Fall Risk Assessment (Adult) History of falling in the last 3 months, bm8 including since admission No falls in past 3 months (0 pts) Confusion or Disorientation No (0 pts) Intoxicated or Sedated Yes (3 pts) Impaired Gait No (0 pts) Mobility Assist Device Used No (0 pt) Altered Elimination No (0 pt) Score/Fall Risk Level 3 or more points = High Risk Oriented to surroundings, Maintained a safe environment, Educated pt \T\ family on fall prevention, incl call for assistance when getting out of bed, Assessed \T\ reinforced patient's understanding of fall precautions, Hourly rounding (assess needs \T\ fall precautionary measures) done, Used ambulatory aids as needed (educated on \T\ assisted with), Used gait belt as appropriate Implemented a Fall Risk Plan of Care. Abuse screen: Denies threats or abuse. Nutritional screening: No deficits noted. Tuberculosis screening: No symptoms or risk factors identified. Assessment: 04:02 General: Mother: [phone]. bm8 05:16 Reassessment: PT REQUESTED TO GO HOME. I ADVISED PT THAT HER LAB WORK HAD NOT RESULTED dd2 OF THIS TIME AND EDUCATED HER ON REMAINING IN THE ER UNTIL LAB RESULTS ARE RECEIVED AND READ BY THE ER PHYSICIAN. PT CONTINUED TO REFUSE CARE AND REPEATED HERE REQUEST TO GO HOME. NOTIFIED CATY PIZARRO CHARGE AND MD YESSI. PT EDUCATED ON LEAVING WITH AN AMA, PT SIGNED AMA. IV REMOVED AND PT LEFT FOR HOME. Vital Signs: 03:35 BP 158 / 94; Pulse 81; Resp 16; Temp 97.6; Pulse Ox 96% ; Weight 61.23 kg; Height 5 ft. bm8 7 in. ; Pain 7/10; 03:35 Body Mass Index 21.14 (61.23 kg, 170.18 cm) bm8 03:35 Pain Scale: Adult bm8 [place] Coma Score: 04:18 Eye Response: spontaneous(4). Motor Response: obeys commands(6). Verbal Response: bm8 oriented(5). Total: 15. ED Course: 03:33 Patient arrived in ED. [email or web address] 03:36 Zo Zapata MD is Attending Physician. sp3 03:50 Ricardo Flores, RN is Primary Nurse. bm8 03:51 Triage completed. bm8 03:51 Arm band placed on right wrist. bm8 04:18 Patient has correct armband on for positive identification. Bed in low position. Call bm8 light in reach. Side rails up X 1. Client placed on continuous cardiac and pulse oximetry monitoring. NIBP monitoring applied. conservation or heritage architect on. Pulse ox on. NIBP on. Door closed. Noise minimized. Lights dimmed. Warm blanket given. Pillow given. Verbal reassurance given. Head of bed lowered. 04:18 No provider procedures requiring assistance completed. Initial lab(s) drawn, by jo-ann anguiano sent to lab. EKG done, by ED staff, reviewed by Zo Zapata MD. Inserted saline lock: 20 gauge in right antecubital area, using aseptic technique. Blood collected. Flushed with 10 mL NS. 04:18 Patient maintains SpO2 saturation greater than 95% on room air. bm8 05:16 Provided Education on: EDUCATED ON THE IMPORTANCE OF STAYING IN THE ER FOR LAB RESULTS dd2 AND ANY TREATMENT NEEDED. PT THEN EDUCATED ON AMA. 05:16 IV discontinued, intact, bleeding controlled, No redness/swelling at site. Pressure dd2 dressing applied. Administered Medications: No medications were administered Medication: 04:18 VIS not applicable for this client. bm8 Outcome: 05:21 AMA AMA form signed dd2 05:21 Condition: stable 05:21 Discharge instructions given to patient, Instructed on RETURNING TO THE ER IF SYMPTOMS CONTINUE OR WORSEN Demonstrated understanding of instructions, 05:22 Patient left the ED. dd2 Signatures: Zo Zapata MD MD sp3 Viridiana Resendiz jj6 Ricardo Flores, RN RN bm8 PEDRITO LINDA, RN RN dd2
--- NOTE | 2024-06-17 05:16 | EDPHYS ---
Physician Documentation [facility] Name: Jaimie Amanda Age: 63 yrs Sex: Female : 1960 Arrival Date: 06/17/2024 Time: 03:30 Bed 7 Private MD: ED Physician Zo Zapata HPI: 06/17 04:06 This 63 yrs old Female presents to ER via Ambulatory with complaints of Abdominal Pain. sp3 04:06 63-year-old female with a history of chronic abdominal pain, hypertension, sp3 hypothyroidism, chronic hyponatremia, diabetes, anxiety now presents to the ED with recurrent abdominal pain. Patient states that she "I went to a new PCP and they are concerned about my liver". Patient denies any vomiting, diarrhea, fever, chest pain, shortness of breath, back pain, or any other signs or symptoms on ROS at this time. She states that she took an Ambien and Xanax prior to arrival as part of her night meds.. Historical: - Allergies: 03:51 hydrochlorothiazide; bm8 03:51 Toradol; bm8 - Home Meds: 03:51 Unable to obtain [Active]; bm8 - PMHx: 03:51 Anxiety; Chronic Abdominal Pain; Hypertensive disorder; Hypothyroidism; low NA; NIDDM; bm8 - PSHx: 03:51 None; bm8 - Immunization history:: Adult Immunizations up to date. - Infectious Disease History:: Denies. - Social history:: Smoking status: unknown. ROS: 04:07 Constitutional: Negative for fever, chills, and weight loss, Eyes: Negative for injury, sp3 pain, redness, and discharge, ENT: Negative for injury, pain, and discharge, Neck: Negative for injury, pain, and swelling, Cardiovascular: Negative for chest pain, palpitations, and edema, Respiratory: Negative for shortness of breath, cough, wheezing, and pleuritic chest pain, Back: Negative for injury and pain, MS/Extremity: Negative for injury and deformity, Skin: Negative for injury, rash, and discoloration, Neuro: Negative for headache, weakness, numbness, tingling, and seizure, Psych: Negative for depression, anxiety, suicide ideation, homicidal ideation, and hallucinations, Allergy/Immunology: Negative for hives, rash, and allergies, Endocrine: Negative for neck swelling, polydipsia, polyuria, polyphagia, and marked weight changes, 04:07 All other systems are negative, Exam: 04:07 Constitutional: This is a well developed, well nourished patient who is awake, alert, sp3 and in no acute distress. Head/Face: Normocephalic, atraumatic. Eyes: Pupils equal round and reactive to light, extra-ocular motions intact. Lids and lashes normal. Conjunctiva and sclera are non-icteric and not injected. Cornea within normal limits. Periorbital areas with no swelling, redness, or edema. ENT: Nares patent. No nasal discharge, no septal abnormalities noted. External auditory canals are clear. Oropharynx with no redness, swelling, or masses, exudates, or evidence of obstruction, uvula midline. Mucous membranes moist. Neck: Trachea midline, no thyromegaly or masses palpated, and no cervical lymphadenopathy. Supple, full range of motion without nuchal rigidity, or vertebral point tenderness. No Meningismus. Chest/axilla: Normal chest wall appearance and motion. Nontender with no deformity. No lesions are appreciated. Cardiovascular: Regular rate and rhythm with a normal S1 and S2. No gallops, murmurs, or rubs. Normal PMI, no JVD. No pulse deficits. Respiratory: Lungs have equal breath sounds bilaterally, clear to auscultation and percussion. No rales, rhonchi or wheezes noted. No increased work of breathing, no retractions or nasal flaring. Back: No spinal tenderness. No costovertebral tenderness. Full range of motion. Skin: Warm, dry with normal turgor. Normal color with no rashes, no lesions, and no evidence of cellulitis. MS/ Extremity: Pulses equal, no cyanosis. Neurovascular intact. Full, normal range of motion. Neuro: Awake and alert, GCS 15, oriented to person, place, time, and situation. Cranial nerves II-XII grossly intact. Motor strength 5/5 in all extremities. Sensory grossly intact. Cerebellar exam normal. Normal gait. Psych: Awake, alert, with orientation to person, place and time. Behavior, mood, and affect are within normal limits. 04:07 Abdomen/GI: Mild pain to palpation without peritoneal signs, rebound or guarding. Patient clearly on the effect of Xanax and Ambien. No focal neurological deficits noted. Vital signs are completely normal. , 04:15 ECG was reviewed by the Attending Physician. EKG demonstrates normal sinus rhythm at 77 sp3 bpm with normal intervals, normal QRS, normal axis, nonspecific ST/T segments without evidence of acute ischemia. Vital Signs: 03:35 BP 158 / 94; Pulse 81; Resp 16; Temp 97.6; Pulse Ox 96% ; Weight 61.23 kg; Height 5 ft. bm8 7 in. ; Pain 7/10; 03:35 Body Mass Index 21.14 (61.23 kg, 170.18 cm) bm8 03:35 Pain Scale: Adult bm8 Ruby Coma Score: 04:18 Eye Response: spontaneous(4). Motor Response: obeys commands(6). Verbal Response: bm8 oriented(5). Total: 15. MDM: 03:45 Medical Screening Exam initiated sp3 04:09 Data reviewed: vital signs, nurses notes, old medical records, lab test result(s). ED sp3 course: 63-year-old female with PMH above including chronic abdominal pain now with recurrent symptoms. Differential diagnosis includes chronic abdominal pain, other biliary pathology, bowel pathology, UTI, among others. Workup will include general labs and UA. Imaging not currently indicated. Disposition pending workup and patient course.. 05:16 ED course: Patient elects to leave on her own volition and not wait for her labs. sp3 Patient signed out AMA.. 06/17 03:59 Order name: CBC with Diff; Complete Time: 05:10 sp3 06/17 03:59 Order name: CMP sp3 06/17 03:59 Order name: Lipase sp3 06/17 03:59 Order name: Urinalysis w/ reflexes sp3 06/17 03:59 Order name: Troponin High Sensitivity sp3 06/17 03:59 Order name: Lactate w/ 2H reflex if indic.; Complete Time: 05:10 sp3 06/17 03:59 Order name: Magnesium sp3 06/17 03:59 Order name: EKG; Complete Time: 03:59 sp3 06/17 03:59 Order name: IV Saline Lock; Complete Time: 04:31 sp3 06/17 03:59 Order name: Labs collected and sent; Complete Time: 04: sp3 06/17 03:59 Order name: EKG - Nurse/Tech; Complete Time: 04:31 sp3 06/17 04:43 Order name: Michele. Order: RECOLLECT LIGHT GREEN; Complete Time: 04:47 rv1 Administered Medications: No medications were administered Disposition Summary: 06/17/24 05:15 Left Against Medical Advice Notes: Location: Home sp3 Problem: an acute exacerbation sp3 Symptoms: have worsened sp3 Condition: Stable sp3 Diagnosis - Abdominal pain chronic, AMA sp3 Followup: sp3 - With: Private Physician - When: Upon discharge from the Emergency Department - Reason: Continuance of care Signatures: Dispatcher [employer] EDMS Zo Zapata MD MD sp3 Kenzie Luna rv1 Ricardo Flores RN RN bm8 Corrections: (The following items were deleted from the chart) 04:09 04:07 Abdomen/GI: Mild pain to palpation without peritoneal signs, rebound or guarding. sp3 Patient clearly on the effect of Xanax and Ambien. No focal neurological deficits noted. Vital signs are completely normal. Will hold on any medications at this time. Imaging not indicated. Will obtain general labs including chemistries and abdominal labs cell counts. UA also pending. Disposition pending workup and patient course., sp3
[2024-06-17 05:25] LABS: Albumin 3.1 g/dL (3.4-5.0); Albumin/Globulin Ratio 0.9 (1.1-1.8); Anion Gap 7.6 mEq/L (5.0-15.0); Bilirubin Total 0.2 mg/dL (0.2-1.0); Globulin 3.5 g/dL (2.3-3.5); Magnesium 1.7 mg/dL (1.6-2.4); Potassium 3.6 mEq/L (3.5-5.1); Protein, Total 6.6 g/dL (6.4-8.2); Troponin High Sensitivity 7.1 pg/mL (<58.9)
[2024-06-17 05:27] VITALS: BP 158/94; TEMP 97.6; O2SAT 96
[2024-06-17 05:50] LABS: Specific Gravity 1.014 (1.005-1.030); Urine Bacteria <20 /HPF (<20); Urine Bilirubin NEGATIVE (Negative); Urine Blood Negative (Negative); Urine Clarity Turbid (Clear); Urine Color Yellow (Yellow); Urine Culture Reflex Order NOT NEEDED; Urine Glucose NEGATIVE (Negative); Urine Ketones NEGATIVE (Negative); Urine Microscopic Reflex YN ORDER UMIC; Urine Mucus Slight /HPF (None Seen); Urine Nitrite NEGATIVE (Negative); Urine Protein NEGATIVE (Negative); Urine RBC None Seen /HPF (None Seen); Urine Urobilinogen Normal (Normal); Urine WBC <5 /HPF (<5); Urine pH 6.5 (5.0-7.0)
--- NOTE | 2024-06-17 14:13 | EKG ---
Test Date: 2024-06-17 Test Time: 04:08:56 Package Worker: UMAIR MEASUREMENT RESULTS: Intervals: Rate: 77 AR: 160 QRSD: 84 QT: 378 QTc: 427 Armour: P: 60 AR: 160 QRS: 61 T: 117 INTERPRETIVE STATEMENTS: Normal sinus rhythm Nonspecific ST and T wave abnormality Abnormal ECG Compared to ECG 03/05/2024 05:57:03 Prolonged QT interval no longer present ST (T wave) deviation still present Electronically Signed On 06-17-24 14:12:25 CDT by Beny Ward
== END 2024-06-17 05:22 | disposition left against medical advice (07) ==
LOC: ER 03:30
DX: R10.9 Unspecified abdominal pain (principal)
CPT/HCPCS: 36415; 80053; 81001; 83605; 83690; 83735; 84484; 85025; 93005; 99284

== ENCOUNTER 2024-06-17 06:56 | Emergency (ER) | payer OTHER ==
[2024-06-17] MEDS ORDERED: FAMOTIDINE 20 MG/2 ML VIAL IV ONE (07:22)
[2024-06-17] MEDS ORDERED: LIDOCAINE VISCOUS 2% 10ML ORAL SOLN ONE (07:23)
[2024-06-17] MEDS ORDERED: MAGNES/ALUMIN/SIMET 30ML UCUP ONE (07:23)
[2024-06-17 07:46] LABS: Absolute Eosinophils 0.1 K/uL (0-0.5); Absolute Lymphocytes (CBC) 2.3 K/uL (0.7-4.9); Absolute Monocytes 0.4 K/uL (0.1-1.3); Absolute Neutrophil 4.5 K/uL (1.8-8.0); Basophils % 0.4 % (0-1.3); Eosinophils % 1.1 % (0-4.4); Hematocrit 37.3 % (36.0-45.0); Hemoglobin 12.8 g/dL (12.0-15.0); Lymphocytes % 31.5 % (15.3-44.8); MCH 30.9 pg (27.0-35.0); MCHC 34.4 g/dL (32.0-36.0); MCV 89.9 fL (80-100); MPV 7.2 fL (7.6-11.3); Monocytes % 5.3 % (3.3-12.3); Neutrophils % 61.7 % (41.7-73.7); Nucleated Red Blood Cells % 0.1 % (0-0); Platelets 232 thou/uL (152-406); RBC Red Blood Cell Count 4.15 M/uL (3.86-4.86)
--- NOTE | 2024-06-17 07:52 | ER ---
Nurse's Notes [facility] Name: Jaimie Amanda Age: 63 yrs Sex: Female : 1960 Arrival Date: 06/17/2024 Time: 06:56 Bed 20 Private MD: Diagnosis: Abdominal pain, Generalized Presentation: 06/17 07:08 Chief complaint: EMS states: generalized abdominal pain and nausea x 2 days ago, aa5 reports was seen here earlier today, EMS reports pt's mother reported pt took her Xanax for anxiety just prior to their arrival. 07:08 Coronavirus screen: nausea. Ebola Screen: Patient denies travel to an Ebola-affected [facility] area in the 21 days before illness onset. Initial Sepsis Screen: Does the patient meet any 2 criteria? No. Patient's initial sepsis screen is negative. Does the patient have a suspected source of infection? No. Patient's initial sepsis screen is negative. Risk Assessment: Do you want to hurt yourself or someone else? Patient reports no desire to harm self or others. Onset of symptoms was June 2024. Care prior to arrival: Medication(s) given: zofran 4 mg, IV initiated. 20 GA, in the right antecubital area. 07:08 Method Of Arrival: EMS: [facility] aa5 07:08 Acuity: ZHEN 3 aa5 Historical: - Allergies: 07:15 hydrochlorothiazide; aa5 07:15 Toradol; aa5 - PMHx: 07:15 Anxiety; Chronic Abdominal Pain; Hypertensive disorder; Hypothyroidism; NIDDM; aa5 hyponatremia (Unknown); - Immunization history:: Adult Immunizations unknown. - Infectious Disease History:: Denies. - Social history:: Smoking status: Patient denies any tobacco usage or history of. Screenin:15 [facility] ED Fall Risk Assessment (Adult) History of falling in the last 3 months, aa5 including since admission No falls in past 3 months (0 pts) Confusion or Disorientation No (0 pts) Intoxicated or Sedated No (0 pts) Impaired Gait No (0 pts) Mobility Assist Device Used No (0 pt) Altered Elimination No (0 pt) Score/Fall Risk Level 0 - 2 = Low Risk Oriented to surroundings, Maintained a safe environment, Educated pt \\T\\ family on fall prevention, incl call for assistance when getting out of bed, Assessed \\T\\ reinforced patient's understanding of fall precautions. Abuse screen: Denies threats or abuse. Nutritional screening: No deficits noted. Tuberculosis screening: No symptoms or risk factors identified. Assessment: 07:08 General: Appears comfortable, Behavior is calm, cooperative. Pain: Complains of pain in aa5 right upper quadrant, left upper quadrant, right lower quadrant and left lower quadrant Pain currently is 7 out of 10 on a pain scale. Quality of pain is described as aching, Pain began 2-3 days ago. Is intermittent. Neuro: Level of Consciousness is awake, alert, obeys commands, Oriented to person, place, time, situation. Cardiovascular: Patient's skin is warm and dry. Respiratory: Airway is patent Respiratory effort is even, unlabored, Respiratory pattern is regular, symmetrical. GI: Abdomen is round non-distended, Bowel sounds present X 4 quads. Abd is soft and non tender X 4 quads. Reports nausea, Patient currently denies diarrhea, vomiting. : No signs and/or symptoms were reported regarding the genitourinary system. EENT: No signs and/or symptoms were reported regarding the EENT system. Derm: Skin is pink, warm \\T\\ dry. Musculoskeletal: Range of motion: intact in all extremities. 07:40 Reassessment: Pt states "I want to go home now", explained to patient lab results are aa5 still pending, pt states "I just want to go now", pt reports she is going to contact her mother for ride home, MD was notified. . 07:49 Reassessment: MD at bedside speaking to pt. . aa5 07:55 Reassessment: Patient is alert, oriented x 3, equal unlabored respirations, skin aa5 warm/dry/pink. Vital Signs: 07:08 BP 161 / 89; Pulse 84; Resp 16 S; Temp 97.4(O); Pulse Ox 96% on R/A; Weight 61.23 kg aa5 (R); Height 5 ft. 7 in. (R); 07:55 BP 156 / 81; Pulse 82; Resp 16 S; Pulse Ox 97% on R/A; aa5 07:08 Body Mass Index 21.14 (61.23 kg, 170.18 cm) aa5 ED Course: 06:57 Patient arrived in ED. jj6 07:08 Arm band placed on Patient placed in an exam room, on a stretcher. aa5 07:08 Patient has correct armband on for positive identification. Bed in low position. Call aa5 light in reach. Side rails up X 1. Pulse ox on. NIBP on. 07:13 Ruperto Mota MD is Attending Physician. jr11 07:18 Triage completed. aa5 07:31 Initial lab(s) drawn, by me, sent to lab. aa5 07:51 Bhavna Corado RN is Primary Nurse. aa5 07:55 IV discontinued, intact, bleeding controlled, No redness/swelling at site. Pressure aa5 dressing applied. 07:57 No provider procedures requiring assistance completed. hb Administered Medications: 07:21 CANCELLED (Physician Discretion; not availablee): GI Cocktail with - aa5 (maaloxsuspension 30 ml, lidocaine mucous membrane liquid 2 % 20 ml, phenobarbital-[id number] ml) PO once 07:33 Drug: Famotidine IVP 20 mg IVP once; dilute with 10 mL 0.9% NaCl; give over 2 minutes aa5 Route: IVP; Site: right antecubital; 07:55 Follow up: Response: No adverse reaction aa5 07:33 Drug: GI Cocktail without - (Maalox PO 30 ml, Lidocaine Mucous Membrane 2 % 15 aa5 ml) PO once Route: PO; 07:55 Follow up: Response: No adverse reaction aa5 Medication: 07:53 VIS not applicable for this client. aa5 Outcome: 07:52 Discharge ordered by . jr11 07:57 Discharged to home ambulatory, 07:57 Condition: stable 07:57 Discharge instructions given to patient, Instructed on discharge instructions, follow up and referral plans. medication usage, Demonstrated understanding of instructions, follow-up care, medications, Prescriptions given X 1, 07:57 Patient left the ED. aa5 Signatures: Bhavna Corado RN RN aa5 Gail Espinoza RN RN Viridiana [email or web address] Ruperto Mota MD MD jr11 Corrections: (The following items were deleted from the chart) 07:15 07:15 PMHx: low NA; aa5 aa5 07:58 07:57 Patient did not have IV access during this emergency room visit. hb aa5
--- NOTE | 2024-06-17 07:52 | EDPHYS ---
Physician Documentation [facility] Name: Jaimie Amanda Age: 63 yrs Sex: Female : 1960 Arrival Date: 06/17/2024 Time: 06:56 Bed 20 Private MD: ED Physician Ruperto Mota HPI: 06/17 07:20 Chief Complaint Abdominal pain. History of Present Illness The patient, who was in the [facility] ER about an hour ago and left after feeling better, returned due to fainting. They report abdominal pain that started two days ago, described as diffuse and not localized to a specific area. The patient denies having nausea, vomiting, burning, or pain during urination. They are experiencing significant pain and are considering trying stomach medications like Pepsid or Maalox to alleviate symptoms. There is no record of recent imaging of their abdomen. Review of Systems - Abdominal pain present for two days - Reports not having nausea - Reports not having vomiting - Reports not having dysuria ROS otherwise negative . Historical: - Allergies: 07:15 hydrochlorothiazide; aa5 07:15 Toradol; aa5 - PMHx: 07:15 Anxiety; Chronic Abdominal Pain; Hypertensive disorder; Hypothyroidism; NIDDM; aa5 hyponatremia (Unknown); - Immunization history:: Adult Immunizations unknown. - Infectious Disease History:: Denies. - Social history:: Smoking status: Patient denies any tobacco usage or history of. ROS: 07:20 Constitutional: Negative for fever, chills Eyes: Negative for injury, pain, redness, jr11 and discharge, Neck: Negative for injury, pain, and swelling, Cardiovascular: Negative for chest pain, palpitations, and edema, Respiratory: Negative for shortness of breath, cough Abdomen/GI: diffuse abd pain, no peritonitis MS/Extremity: Negative for injury and deformity, Skin: Negative for injury, rash, and discoloration, Exam: 07:20 Constitutional: This is a well developed, well nourished patient who is awake, alert, jr11 and in no acute distress. Head/Face: Normocephalic, atraumatic. Eyes: Extra-ocular motions intact. Lids and lashes normal. Conjunctiva and sclera are non-icteric and not injected. Cornea within normal limits. Periorbital areas with no swelling, redness, or edema. ENT: Nares patent. No nasal discharge, no septal abnormalities noted. Oropharynx with no redness, swelling, or masses, exudates, or evidence of obstruction, uvula midline. Mucous membranes moist. Chest/axilla: Normal chest wall appearance and motion. Nontender with no deformity. No lesions are appreciated. Cardiovascular: Regular rate and rhythm with a normal S1 and S2. No gallops, murmurs, or rubs. Normal PMI, no JVD. No pulse deficits. Abdomen/GI: diffusely tender, no peritonitis Skin: Warm, dry with normal turgor. Normal color with no rashes, no lesions, and no evidence of cellulitis. MS/ Extremity: Pulses equal, no cyanosis. Neurovascular intact. Full, normal range of motion. Vital Signs: 07:08 BP 161 / 89; Pulse 84; Resp 16 S; Temp 97.4(O); Pulse Ox 96% on R/A; Weight 61.23 kg aa5 (R); Height 5 ft. 7 in. (R); 07:55 BP 156 / 81; Pulse 82; Resp 16 S; Pulse Ox 97% on R/A; aa5 07:08 Body Mass Index 21.14 (61.23 kg, 170.18 cm) aa5 MDM: 07:17 Medical Screening Exam initiated 07:20 ED course: Medical Decision Making Differential Diagnosis: 1. Gastroenteritis 2. Peptic rust ulcer disease 3. Irritable bowel syndrome (IBS) 4. Acute pancreatitis 5. Less likely but life-threatening: Bowel obstruction Plan - Administer stomach medications such as Pepsid or Maalox to manage abdominal pain - Consider abdominal imaging if symptoms persist or worsen - Monitor patient for any changes in symptoms . 07:51 ED course: Pt feeling better, would like to go home . 06/17 07:17 Order name: CBC with Diff; Complete Time: 08:02 06/17 07:17 Order name: CMP; Complete Time: 08:02 06/17 07:17 Order name: Lipase; Complete Time: 08:02 06/17 07:17 Order name: IV Saline Lock; Complete Time: 07:18 06/17 07:17 Order name: Labs collected and sent; Complete Time: 07:33 rust Administered Medications: 07:21 CANCELLED (Physician Discretion; not availablee): GI Cocktail with - aa5 (maaloxsuspension 30 ml, lidocaine mucous membrane liquid 2 % 20 ml, phenobarbital-bnopvssdnz51 ml) PO once 07:33 Drug: Famotidine IVP 20 mg IVP once; dilute with 10 mL 0.9% NaCl; give over 2 minutes aa5 Route: IVP; Site: right antecubital; 07:55 Follow up: Response: No adverse reaction aa5 07:33 Drug: GI Cocktail without - (Maalox PO 30 ml, Lidocaine Mucous Membrane 2 % 15 aa5 ml) PO once Route: PO; 07:55 Follow up: Response: No adverse reaction aa5 Disposition Summary: 06/17/24 07:52 Discharge Ordered Notes: Location: Home rust Condition: Stable jr11 Diagnosis - Abdominal pain, Generalized jr11 Discharge Instructions: - Discharge Summary Sheet jr11 - Abdominal Pain, Adult jr11 Forms: - Medication Reconciliation Form jr11 - Antibiotic Education jr11 - Prescription Opioid Use jr11 - Patient Portal Instructions jr11 - Leadership Thank You Letter jr11 Prescriptions: - Pepcid 20 mg Oral Tablet - take 1 tablet ORAL route every 12 hours for 10 days; 20 tablet; Refills: 0, jr11 Product Selection Permitted Signatures: Dispatcher [employer] Bhavna Darling RN RN aa5 Ruperto Mota MD MD jr11 Corrections: (The following items were deleted from the chart) 07:15 07:15 PMHx: low NA; aa5 aa5 07:21 07:17 GI Cocktail with - (Maalox PO 30 ml, Lidocaine Mucous Membrane 2 % 20 aa5 ml, Phenobarbital-Belladonna PO 10 ml) PO once ordered. jr11
[2024-06-17 08:01] VITALS: BP 161/89; TEMP 97.4; O2SAT 96
[2024-06-17 08:01] LABS: Albumin 3.1 g/dL (3.4-5.0); Albumin/Globulin Ratio 0.8 (1.1-1.8); Anion Gap 9.6 mEq/L (5.0-15.0); Bilirubin Total 0.2 mg/dL (0.2-1.0); Globulin 3.8 g/dL (2.3-3.5); Potassium 3.6 mEq/L (3.5-5.1); Protein, Total 6.9 g/dL (6.4-8.2)
== END 2024-06-17 07:57 | disposition home or self-care (01) ==
LOC: ER 06:56
DX: R10.84 Generalized abdominal pain (principal)
CPT/HCPCS: 36415; 80053; 83690; 85025; 96374; 99284

== ENCOUNTER 2024-06-21 11:57 | Emergency (ER) | payer OTHER ==
[2024-06-21] MEDS ORDERED: NA CHLORIDE 0.9% 1,000 ML ONE (12:31)
[2024-06-21 12:49] LABS: Absolute Lymphocytes (CBC) 1.6 K/uL (0.7-4.9); Absolute Monocytes 0.8 K/uL (0.1-1.3); Absolute Neutrophil 9.9 K/uL (1.8-8.0); Basophils % 0.4 % (0-1.3); Hematocrit 37.6 % (36.0-45.0); Lymphocytes % 13.3 % (15.3-44.8); MCH 30.7 pg (27.0-35.0); MCHC 34.6 g/dL (32.0-36.0); MCV 88.7 fL (80-100); MPV 7.5 fL (7.6-11.3); Monocytes % 6.5 % (3.3-12.3); Neutrophils % 79.8 % (41.7-73.7); Platelets 219 thou/uL (152-406); RBC Red Blood Cell Count 4.23 M/uL (3.86-4.86)
[2024-06-21 13:06] LABS: Albumin 3.5 g/dL (3.4-5.0); Albumin/Globulin Ratio 0.8 (1.1-1.8); Anion Gap 9.3 mEq/L (5.0-15.0); Bilirubin Total 0.4 mg/dL (0.2-1.0); Globulin 4.6 g/dL (2.3-3.5); Potassium 3.3 mEq/L (3.5-5.1); Protein, Total 8.1 g/dL (6.4-8.2)
--- NOTE | 2024-06-21 13:10 | ER ---
Nurse's Notes [facility] Name: Jaimie Amanda Age: 63 yrs Sex: Female : 1960 Arrival Date: 06/21/2024 Time: 11:57 Bed 14 Private MD: Diagnosis: Chronic abdominal pain Presentation: 06/21 12:10 Chief complaint: EMS states: ABDOMINAL PAIN. Coronavirus screen: At this time, the bp client does not indicate any symptoms associated with coronavirus-19. Ebola Screen: No symptoms or risks identified at this time. Initial Sepsis Screen: Does the patient meet any 2 criteria? No. Patient's initial sepsis screen is negative. Does the patient have a suspected source of infection? No. Patient's initial sepsis screen is negative. Risk Assessment: Do you want to hurt yourself or someone else? Patient reports no desire to harm self or others. Onset of symptoms is unknown. Care prior to arrival: IV initiated. 20 GA, in the left antecubital area, Glucose check: 143. 12:10 Method Of Arrival: EMS: [facility] bp 12:10 Acuity: ZHEN 3 bp Triage Assessment: 12:15 General: Appears in no apparent distress. uncomfortable, Behavior is agitated, anxious. bp Pain: Complains of pain in abdomen. EENT: No deficits noted. Neuro: Level of Consciousness is awake, obeys commands, confused, Oriented to Appropriate for age. Cardiovascular: No deficits noted. Respiratory: No deficits noted. GI: Abdomen is non-distended. : No signs and/or symptoms were reported regarding the genitourinary system. Derm: No deficits noted. Musculoskeletal: No deficits noted. Historical: - Allergies: 12:15 hydrochlorothiazide; bp 12:15 Toradol; bp - PMHx: 12:15 Anxiety; Chronic Abdominal Pain; Hypertensive disorder; hyponatremia (Unknown); bp Hypothyroidism; NIDDM; - Immunization history:: Adult Immunizations up to date. - Infectious Disease History:: Denies. - Social history:: Smoking status: Patient reports the use of cigarette tobacco products, unknown amount. Screenin:35 [facility] ED Fall Risk Assessment (Adult) History of falling in the last 3 months, bp including since admission No falls in past 3 months (0 pts) Confusion or Disorientation No (0 pts) Intoxicated or Sedated No (0 pts) Impaired Gait No (0 pts) Mobility Assist Device Used No (0 pt) Altered Elimination No (0 pt) Score/Fall Risk Level 0 - 2 = Low Risk Oriented to surroundings. Abuse screen: Denies threats or abuse. Denies injuries from another. Nutritional screening: No deficits noted. Tuberculosis screening: No symptoms or risk factors identified. Assessment: 13:35 Reassessment: Patient appears in no apparent distress at this time. Patient is alert, bp oriented x 3, equal unlabored respirations, skin warm/dry/pink. Vital Signs: 12:10 BP 167 / 80; Pulse 75; Resp 16; Temp 98; Pulse Ox 95% ; bp 13:35 BP 157 / 71; Pulse 79; Resp 16; Pulse Ox 95% ; bp ED Course: 12:05 Patient arrived in ED. sp3 12:05 Zo Zapata MD is Attending Physician. sp3 12:08 Sadiq Rosales, RN is Primary Nurse. bp 12:10 Arm band placed on. bp 12:15 Triage completed. bp 13:35 Patient has correct armband on for positive identification. bp 13:35 No provider procedures requiring assistance completed. IV discontinued, intact, bp bleeding controlled, No redness/swelling at site. Pressure dressing applied. Administered Medications: 12:30 Drug: NS 0.9% IV 1000 ml IV at 1 bolus Per protocol; to be given as a bolus over 60 bp minutes Route: IV; Rate: 1 bolus; Site: right antecubital; 13:37 Follow up: IV Status: Completed infusion bp Medication: 13:35 VIS not applicable for this client. bp Outcome: 13:10 Discharge ordered by . sp3 13:35 Discharged to home ambulatory, bp 13:35 Condition: stable 13:35 Discharge instructions given to patient, Instructed on discharge instructions, follow up and referral plans. Demonstrated understanding of instructions, follow-up care, 13:37 Patient left the ED. bp Signatures: Sadiq Rosales, RN RN bp Zo Zapata MD MD sp3
--- NOTE | 2024-06-21 13:10 | EDPHYS ---
Physician Documentation [facility] Name: Jaimie Amanda Age: 63 yrs Sex: Female : 1960 Arrival Date: 06/21/2024 Time: 11:57 Bed 14 Private MD: ED Physician Zo Zapata HPI: 06/21 13:08 This 63 yrs old Female presents to ER via EMS with complaints of abdominal pain. sp3 13:08 63-year-old female with a history of chronic abdominal pain, hypertension, sp3 hypothyroidism, chronic hyponatremia, diabetes, anxiety now presents to the ED with recurrent abdominal pain. Patient denies any vomiting, diarrhea, fever, chest pain, shortness of breath, back pain, or any other signs or symptoms on ROS at this time. She does endorse nausea.. Historical: - Allergies: 12:15 hydrochlorothiazide; bp 12:15 Toradol; bp - PMHx: 12:15 Anxiety; Chronic Abdominal Pain; Hypertensive disorder; hyponatremia (Unknown); bp Hypothyroidism; NIDDM; - Immunization history:: Adult Immunizations up to date. - Infectious Disease History:: Denies. - Social history:: Smoking status: Patient reports the use of cigarette tobacco products, unknown amount. ROS: 13:08 Constitutional: Negative for fever, chills, and weight loss, Eyes: Negative for injury, sp3 pain, redness, and discharge, Neck: Negative for injury, pain, and swelling, Cardiovascular: Negative for chest pain, palpitations, and edema, Respiratory: Negative for shortness of breath, cough, wheezing, and pleuritic chest pain, Back: Negative for injury and pain, MS/Extremity: Negative for injury and deformity, Skin: Negative for injury, rash, and discoloration, Neuro: Negative for headache, weakness, numbness, tingling, and seizure, Psych: Negative for depression, anxiety, suicide ideation, homicidal ideation, and hallucinations, Allergy/Immunology: Negative for hives, rash, and allergies, Endocrine: Negative for neck swelling, polydipsia, polyuria, polyphagia, and marked weight changes, Hematologic/Lymphatic: Negative for swollen nodes, abnormal bleeding, and unusual bruising, 13:08 All other systems are negative, Exam: 13:09 Constitutional: This is a well developed, well nourished patient who is awake, alert, sp3 and in no acute distress. Head/Face: Normocephalic, atraumatic. Eyes: Pupils equal round and reactive to light, extra-ocular motions intact. Lids and lashes normal. Conjunctiva and sclera are non-icteric and not injected. Cornea within normal limits. Periorbital areas with no swelling, redness, or edema. Neck: Trachea midline, no thyromegaly or masses palpated, and no cervical lymphadenopathy. Supple, full range of motion without nuchal rigidity, or vertebral point tenderness. No Meningismus. Chest/axilla: Normal chest wall appearance and motion. Nontender with no deformity. No lesions are appreciated. Cardiovascular: Regular rate and rhythm with a normal S1 and S2. No gallops, murmurs, or rubs. Normal PMI, no JVD. No pulse deficits. Respiratory: Lungs have equal breath sounds bilaterally, clear to auscultation and percussion. No rales, rhonchi or wheezes noted. No increased work of breathing, no retractions or nasal flaring. Back: No spinal tenderness. No costovertebral tenderness. Full range of motion. Skin: Warm, dry with normal turgor. Normal color with no rashes, no lesions, and no evidence of cellulitis. MS/ Extremity: Pulses equal, no cyanosis. Neurovascular intact. Full, normal range of motion. Neuro: Awake and alert, GCS 15, oriented to person, place, time, and situation. Cranial nerves II-XII grossly intact. Motor strength 5/5 in all extremities. Sensory grossly intact. Cerebellar exam normal. Normal gait. Psych: Awake, alert, with orientation to person, place and time. Behavior, mood, and affect are within normal limits. 13:09 Abdomen/GI: Mild diffuse abdominal pain to palpation without peritoneal signs, rebound or guarding. This is consistent with her prior chronic abdominal pain exams., Vital Signs: 12:10 BP 167 / 80; Pulse 75; Resp 16; Temp 98; Pulse Ox 95% ; bp 13:35 BP 157 / 71; Pulse 79; Resp 16; Pulse Ox 95% ; bp MDM: 12:07 Medical Screening Exam initiated sp3 13:09 Data reviewed: vital signs, nurses notes, old medical records, lab test result(s). ED sp3 course: 63-year-old female with chronic abdominal pain. Differential diagnosis includes chronic abdominal pain versus other intra-abdominal pathology. All lab work is within normal limits including sodium. We will discharge patient home with continued outpatient management is no acute intervention is indicated in the ED.. 06/21 12:06 Order name: CBC with Diff; Complete Time: 13:07 sp3 06/21 12:06 Order name: CMP; Complete Time: 13:07 sp3 06/21 12:06 Order name: Lipase; Complete Time: 13:07 sp3 06/21 12:06 Order name: IV Saline Lock; Complete Time: 12:56 sp3 06/21 12:06 Order name: Labs collected and sent; Complete Time: 12:56 sp3 Administered Medications: 12:30 Drug: NS 0.9% IV 1000 ml IV at 1 bolus Per protocol; to be given as a bolus over 60 bp minutes Route: IV; Rate: 1 bolus; Site: right antecubital; 13:37 Follow up: IV Status: Completed infusion bp Disposition Summary: 06/21/24 13:10 Discharge Ordered Notes: Location: Home sp3 Condition: Stable sp3 Diagnosis - Chronic abdominal pain sp3 Followup: sp3 - With: Private Physician - When: Upon discharge from the Emergency Department - Reason: Continuance of care Discharge Instructions: - Discharge Summary Sheet sp3 - Chronic Pain, Adult sp3 Forms: - Medication Reconciliation Form sp3 - Antibiotic Education sp3 - Prescription Opioid Use sp3 - Patient Portal Instructions sp3 - Leadership Thank You Letter sp3 Signatures: Dispatcher [employer] Sadiq Cheung RN RN bp Patel, Setul, MD MD sp3
[2024-06-21 13:41] VITALS: TEMP 98; O2SAT 95
[2024-06-21 13:42] VITALS: BP 157/71
== END 2024-06-21 13:37 | disposition home or self-care (01) ==
LOC: ER 11:57
DX: R10.9 Unspecified abdominal pain (principal); Z72.0 Tobacco use
CPT/HCPCS: 85025; 36415; 83690; 80053; J7030

== ENCOUNTER 2024-12-05 17:58 | Observation (INO) | payer OTHER ==
[2024-12-05] MEDS ORDERED: NA CHLORIDE 0.9% 1,000 ML ONE (19:22)
[2024-12-05] MEDS ORDERED: ONDANSETRON 4 MG/2 ML VIAL ONE ×2 (19:22→21:50)
[2024-12-05 19:38] LABS: PT Prothrombin Time 11.8 SECONDS (10-13.0); PTT, Activated Partial Thromb 30.7 SECONDS (27.2-37.4); Protime INR 1.05
[2024-12-05 19:46] LABS: Absolute Lymphocytes (CBC) 3.8 K/uL (0.7-4.9); Hematocrit 46.0 % (36.0-45.0); Hemoglobin 15.6 g/dL (12.0-15.0); MCH 30.4 pg (27.0-35.0); MCHC 33.9 g/dL (32.0-36.0); MCV 89.8 fL (80-100); MPV 7.8 fL (7.6-11.3); Nucleated RBC Absolute Count 0.0 (0-0); Nucleated Red Blood Cells % 0.0 % (0-0); RBC Red Blood Cell Count 5.13 M/uL (3.86-4.86); White Blood Count 9.60 thou/uL (4.3-10.9)
[2024-12-05 19:56] LABS: ALT/SGPT 29.0 U/L (13-56); AST/SGOT 16.0 U/L (15-37); Albumin 3.9 g/dL (3.4-5.0); Albumin/Globulin Ratio 0.9 (1.1-1.8); Alkaline Phosphatase 95.0 U/L (45-117); Anion Gap 7.7 mEq/L (5.0-15.0); BUN Blood Urea Nitrogen 17.0 mg/dL (7-18); Globulin 4.5 g/dL (2.3-3.5); Glucose Level 112.0 mg/dL (74-106); NT PRO-BNP 135.0 pg/mL (<125); Potassium 3.7 mEq/L (3.5-5.1); Troponin High Sensitivity 6.8 pg/mL (<58.9)
--- NOTE | 2024-12-05 20:41 | RAD REPORT ---
EXAM: CT brain without contrast HISTORY: Confusion/declining state COMPARISON: 2022 TECHNIQUE: Multiple contiguous axial images were obtained and a CT of the brain without contrast.. Sagittal and coronal reconstruction performed. Automated exposure control, adjustment of the mA and/or kV according to patient size, and/or iterative reconstruction. Unless otherwise specified, incidental f indings do not require dedicated imaging follow-up FINDINGS: An intracranial bleed is not seen Ventricles are normal caliber No extra-axial fluid collection noted No significant hypodensity within the brain No fluid within the visualized sinuses or mastoids noted. IMPRESSION: No acute intracranial abnormality noted. If the patient continues to have symptoms to suggest an acute intracranial abnormality then MRI of th e brain would be recommended.
[2024-12-05 20:52] LABS: Urine Culture Reflex Order NOT NEEDED; Urine Microscopic Reflex YN ORDER UMIC
--- NOTE | 2024-12-05 20:53 | RAD REPORT ---
EXAMINATION: CT ABDOMEN AND PELVIS WITH CONTRAST CLINICAL INDICATION: Abdominal pain TECHNIQUE: CT abdomen and pelvis was performed, after the administration of 100 cc Isovue-300.. Sagit tatyana and coronal reconstructions were obtained. One or more of the following dose reduction techniques were used: Automated exposure control, adjustment of the mA and kV according to patient si ze, and iterative reconstruction. Unless otherwise specified, incidental findings do not require dedicated imaging follow-up. [id number]. Oral contrast was not given which limits evaluation of bowel and appendix. COMPARISON: .September 2024 FINDINGS: Liver, spleen, pancreas, adrenals and kidneys appear unremarkable No evidence of diverticulitis. Moderate amount stool throughout the colon. Normal appendix. No adnexal mass Moderate gastric dilatation : IMPRESSION: Moderate gastric dilatation Moderate amount of stool throughout the colon
[2024-12-05 20:58] LABS: METHAMPHETAM NEGATIVE (NEGATIVE); THC Cannibis NEGATIVE (NEGATIVE)
--- NOTE | 2024-12-05 21:01 | ER ---
Nurse's Notes [facility] Name: Jaimie Amanda Age: 63 yrs Sex: Female : 1960 Arrival Date: 12/05/2024 Time: 17:58 Bed 19 Private MD: Diagnosis: Anorexia;Abdominal pain, Generalized;Vomiting;UTI/ Urinary tract infection, site not specified Presentation: 12/05 18:11 Chief complaint: BROTHER REPORTS PT C/O STOMACH PAIN, NAUSEA SINCE THURSDAY . REPORTS dd2 PT HAS NOT EATEN OR DRANK FLUIDS SINCE THURSDAY AND PT CONFUSED. Coronavirus screen: At this time, the client does not indicate any symptoms associated with coronavirus-19. Ebola Screen: No symptoms or risks identified at this time. Initial Sepsis Screen: Does the patient meet any 2 criteria? Altered Mental Status. HR > 90 bpm. Yes Does the patient have a suspected source of infection? No. Patient's initial sepsis screen is negative. Risk Assessment: Do you want to hurt yourself or someone else? Patient reports no desire to harm self or others. Onset of symptoms was December 01, 2024. 18:11 Method Of Arrival: Wheelchair dd2 18:11 Acuity: ZHEN 2 dd2 Triage Assessment: 18:13 General: Appears ill, unkempt, Behavior is anxious, restless. Pain: Complains of pain dd2 in abdomen. Neuro: Level of Consciousness is awake, obeys commands, Oriented to person, place. GI: Parent/caregiver reports the patient having cramping, diarrhea, nausea. Historical: - Allergies: 18:13 hydrochlorothiazide; dd2 18:13 Toradol; dd2 - PMHx: 18:13 Anxiety; Chronic Abdominal Pain; Hypertensive disorder; hyponatremia (Unknown); dd2 Hypothyroidism; NIDDM; - PSHx: 18:13 Unable to Obtain; dd2 - Immunization history:: Adult Immunizations up to date. - Infectious Disease History:: Denies. - Social history:: Smoking status: unknown. Screenin:26 [facility] ED Fall Risk Assessment (Adult) History of falling in the last 3 months, me1 including since admission No falls in past 3 months (0 pts) Confusion or Disorientation Yes (5 pts) Intoxicated or Sedated No (0 pts) Impaired Gait Yes (1 pt) Mobility Assist Device Used Yes (1 pt) Altered Elimination No (0 pt) Score/Fall Risk Level 0 - 2 = Low Risk Maintained a safe environment, Provided non-skid footwear, Hourly rounding (assess needs \T\ fall precautionary measures) done. Abuse screen: Denies threats or abuse. Nutritional screening: No deficits noted. Tuberculosis screening: No symptoms or risk factors identified. Assessment: 18:26 General: Appears ill, Behavior is calm, cooperative, appropriate for age, listless, me1 Reports BROTHER REPORTS PT C/O STOMACH PAIN, NAUSEA SINCE THURSDAY . REPORTS PT HAS NOT EATEN OR DRANK FLUIDS SINCE THURSDAY AND PT CONFUSED. Pain: Complains of pain in abdomen Pain currently is 7 out of 10 on a pain scale. Quality of pain is described as crampy, sharp, Pain began 5 days ago Is continuous. Neuro: Level of Consciousness is awake, alert, obeys commands, confused, Oriented to person, situation. Cardiovascular: Patient's skin is warm and dry. Respiratory: Airway is patent Respiratory effort is even, unlabored, Respiratory pattern is regular, symmetrical. GI: Abdomen is round Bowel sounds present X 4 quads. Abd is soft X 4 quads Reports lower abdominal pain, upper abdominal pain, anorexia, cramping, nausea, Since . Not eating or drinking since then as well. : No signs and/or symptoms were reported regarding the genitourinary system. EENT: No signs and/or symptoms were reported regarding the EENT system. Derm: Skin is fragile, is thin, with poor turgor Skin is pale. Musculoskeletal: No signs and/or symptoms reported regarding the musculoskeletal system. Reports generalized weakness. 22:21 Reassessment: Patient and/or family updated on plan of care and expected duration. Pain kb4 level reassessed. Patient is alert, oriented x 3, equal unlabored respirations, skin warm/dry/pink. Vital Signs: 18:11 BP 163 / 105; Pulse 98; Resp 19; Temp 97.9; Pulse Ox 99% on R/A; dd2 19:00 BP 161 / 87; Pulse 84; Resp 16; Pulse Ox 100% ; me1 20:00 BP 159 / 99; Pulse 88; Resp 20; Pulse Ox 96% ; me1 22:21 BP 196 / 76; Pulse 92; Resp 18; Pulse Ox 95% on R/A; kb4 ED Course: 18:06 Patient arrived in ED. cj3 18:12 Dior Garcia PA-C is PHCP. sb4 18:12 Zo Zapata MD is Attending Physician. sb4 18:13 Triage completed. dd2 18:13 Arm band placed on left wrist. dd2 18:16 Radha James, RN is Primary Nurse. me1 18:26 Patient has correct armband on for positive identification. Bed in low position. Call me1 light in reach. Side rails up X2. Provided Education on: POC. Brother verbalized understanding.. Client placed on continuous cardiac and pulse oximetry monitoring. NIBP monitoring applied. school lunch monitor on. Pulse ox on. NIBP on. Warm blanket given. 18:26 No provider procedures requiring assistance completed. me1 19:15 Initial lab(s) drawn, by me, sent to lab. First set of blood cultures drawn by ED me1 staff, Second set of blood cultures drawn by ED staff, EKG done, by ED staff, reviewed by Dior Garcia PA-C. 19:30 BNP Sent. me1 19:31 Blood Culture Adult (2) Sent. me1 19:31 CBC with Diff Sent. me1 19:31 CMP Sent. me1 19:31 Lactate w/ 2H reflex if indic. Sent. me1 19:31 Protime (+inr) Sent. me1 19:31 Ptt, Activated Sent. me1 19:31 Troponin HS Sent. me1 19:31 Accessed ,peripheral vein via ultrasound, utilizing static ultrasound technique using me1 20G Nexia IV catheter Clean \T\ dry. Dressing intact. Good blood return. Flushes easily. By CATY Silva. 20:16 Attending Physician role handed off by Zo Zapata MD sb4 20:16 Diego Ramirez MD is Attending Physician. sb4 20:27 Head Brain Wo Cont CT In Process Unspecified. EDMS 20:27 CT Abd/Pelvis - IV Contrast Only In Process Unspecified. EDMS 20:29 Acetaminophen Sent. me1 20:29 ETOH Level Sent. me1 20:29 Salicylate Sent. me1 20:39 UDS Sent. me1 20:39 UA Rfx Zach Cult if indicated Sent. me1 20:39 Urine collected: clean catch specimen, cloudy, josse colored. me1 21:00 Kwame Gustafsonkong is Hospitalizing Provider. hannah 23:01 Patient admitted, IV remains in place. kb4 Administered Medications: 19:30 Drug: NS 0.9% IV 1000 ml IV at 1 bolus Per protocol; to be given as a bolus over 60 me1 minutes Route: IV; Rate: 1 bolus; Site: right antecubital; 21:30 Follow up: Response: No adverse reaction; IV Status: Completed infusion me1 19:30 Drug: Ondansetron IVP 4 mg IVP once; over 2 minutes Route: IVP; Site: right antecubital;me1 19:48 Follow up: Response: No adverse reaction; Nausea is decreased me1 19:47 Drug: Droperidol IVP 2.5 mg IVP once Route: IVP; Site: right antecubital; me1 19:59 Follow up: Response: No adverse reaction; Pain is decreased; Nausea is decreased me1 21:55 Drug: morphine IVP or IV 4 mg IVP once over 4 mins Route: IVP; Infused Over: 4 mins; kb4 Site: right antecubital; 22:17 Follow up: Response: No adverse reaction 4 21:57 Drug: Ondansetron IVP 4 mg IVP once; over 2 minutes Route: IVP; Site: right antecubital;kb4 22:17 Follow up: Response: No adverse reaction kb4 Medication: 18:26 VIS not applicable for this client. me1 Outcome: 21:01 Decision to Hospitalize by Provider. hannah 23:01 Admitted to Med/surg accompanied by nurse, via stretcher, with chart, kb4 23:01 Condition: good 23:01 Instructed on the need for admit, 23:02 Patient left the ED. kb4 Signatures: Dispatcher [employer] EDMS Diego Ramirez MD MD cha Brown, Sophia, PA-C PA-C [email or web address] Radha James RN RN me1 PEDRITO LINDA RN RN dd2 Ashlee Teague RN RN kb4 Cynthia Virk 3 Corrections: (The following items were deleted from the chart) 18:26 18:11 Chief complaint: BROTHER REPORTS PT C/O STOMACH PAIN, NAUSEA SINCE THURSDAY . me1 REPORTS PT HAS NOT EATEN OR DRANK FLUIDS SINCE THURSDAY AND PT CONFUSED. dd2
--- NOTE | 2024-12-05 21:01 | EDPHYS ---
Physician Documentation [facility] Name: Jaimie Amanda Age: 63 yrs Sex: Female : 1960 Arrival Date: 12/05/2024 Time: 17:58 Bed 19 Private MD: ED Physician Diego Ramirez HPI: 12/05 18:32 This 63 yrs old Female presents to ER via Wheelchair with complaints of Decreased sb4 Appetite, Dehydrated, Abdominal Pain. 18:32 Patient is well-known to this emergency department for chronic abdominal pain and sb4 recurrent hyponatremia, noncompliant. Presents today with brother with altered mental status, generalized weakness, not eating or drinking. Patient cannot provide history due to altered mental status. She does appear more ill than her baseline, smells of cigarettes. Historical: - Allergies: 18:13 hydrochlorothiazide; dd2 18:13 Toradol; dd2 - PMHx: 18:13 Anxiety; Chronic Abdominal Pain; Hypertensive disorder; hyponatremia (Unknown); dd2 Hypothyroidism; NIDDM; - PSHx: 18:13 Unable to Obtain; dd2 - Immunization history:: Adult Immunizations up to date. - Infectious Disease History:: Denies. - Social history:: Smoking status: unknown. ROS: 18:32 Unable to obtain ROS due to altered mental status, sb4 20:56 Constitutional: Negative for fever, chills, and weight loss, Eyes: Negative for injury, hannah pain, redness, and discharge, ENT: Negative for injury, pain, and discharge, Neck: Negative for injury, pain, and swelling, Cardiovascular: Negative for chest pain, palpitations, and edema, Respiratory: Negative for shortness of breath, cough, wheezing, and pleuritic chest pain, Back: Negative for injury and pain, : Negative for injury, bleeding, discharge, and swelling, MS/Extremity: Negative for injury and deformity, Skin: Negative for injury, rash, and discoloration, Neuro: Negative for headache, weakness, numbness, tingling, and seizure, Psych: Negative for depression, anxiety, suicide ideation, homicidal ideation, and hallucinations, Allergy/Immunology: Negative for hives, rash, and allergies, Endocrine: Negative for neck swelling, polydipsia, polyuria, polyphagia, and marked weight changes, Hematologic/Lymphatic: Negative for swollen nodes, abnormal bleeding, and unusual bruising, 20:56 Abdomen/GI: Positive for abdominal pain, nausea and vomiting, of the right upper quadrant, left upper quadrant, right lower quadrant and left lower quadrant, Exam: 18:32 Constitutional: The patient appears lethargic, unkempt, sb4 18:39 Head/Face: Normocephalic, atraumatic. Eyes: Extra-ocular motions intact. Periorbital sb4 areas with no swelling, redness, or edema. Cardiovascular: Regular rate and rhythm with a normal S1 and S2. Respiratory: No increased work of breathing, no retractions or nasal flaring. Skin: Normal color with no rashes, no lesions, and no evidence of cellulitis. 18:39 ENT: Mouth: Oral mucosa: dry, 18:39 Abdomen/GI: Inspection: abdomen appears normal, Bowel sounds: normal, Palpation: mild abdominal tenderness, in all quadrants, 20:56 ENT: Nares patent. No nasal discharge, no septal abnormalities noted. Tympanic hannah membranes are normal and external auditory canals are clear. Oropharynx with no redness, swelling, or masses, exudates, or evidence of obstruction, uvula midline. Mucous membranes moist. Neck: Trachea midline, no thyromegaly or masses palpated, and no cervical lymphadenopathy. Supple, full range of motion without nuchal rigidity, or vertebral point tenderness. No Meningismus. Chest/axilla: Normal chest wall appearance and motion. Nontender with no deformity. No lesions are appreciated. Back: No spinal tenderness. No costovertebral tenderness. Full range of motion. Female : Normal external genitalia. MS/ Extremity: Pulses equal, no cyanosis. Neurovascular intact. Full, normal range of motion., bilateral aka Psych: Awake, alert, with orientation to person, place and time. Behavior, mood, and affect are within normal limits. 20:56 ECG was reviewed by the Attending Physician. 20:56 Musculoskeletal/extremity: ROM: intact in all extremities, full active range of motion, full passive range of motion, Circulation is intact in all extremities. Sensation intact. Compartment Syndrome exam of affected extremity: is normal. Joints: All joints are normal except Weight bearing: able to fully bear weight, DVT Exam: no pain, no swelling, no tenderness, negative Homans' sign noted on exam, no appreciated bluish discoloration, no erythema, no increased warmth, Vital Signs: 18:11 BP 163 / 105; Pulse 98; Resp 19; Temp 97.9; Pulse Ox 99% on R/A; dd2 19:00 BP 161 / 87; Pulse 84; Resp 16; Pulse Ox 100% ; me1 20:00 BP 159 / 99; Pulse 88; Resp 20; Pulse Ox 96% ; me1 22:21 BP 196 / 76; Pulse 92; Resp 18; Pulse Ox 95% on R/A; kb4 MDM: 18:12 Medical Screening Exam initiated sb4 18:39 Differential diagnosis: Hyponatremia, polypharmacy, UTI, dehydration, acute kidney sb4 failure. Historians other than the Patient: Family Member: brother. 20:58 Differential diagnosis: Nonspecific abd pain, cholecystitis, pancreatitis, hannah appendicitis, diverticulitis, viral gastroenteritis, gastroenteritis, acute coronary syndrome, appendicitis, bowel obstruction, cholecystitis, Cholelithiasis, diverticulitis, gastritis, gastroesophageal reflux disease, non-specific abd pain, pancreatitis, Peptic Ulcer Disease, Ureterolithiasis, urinary tract infection. 20:59 Data reviewed: vital signs, nurses notes, lab test result(s), EKG, radiologic studies, hannah CT scan, plain films. Consideration of Admission/Observation Patient was admitted/placed on observation. Escalation of care including admission/observation considered. I considered the following discharge prescriptions or medication management in the emergency department Medications were administered in the Emergency Department. See MAR. Independent interpretation of the following test(s) in the Emergency Department EKG: See my EKG interpretation above. Test considered but Not performed: Ultrasound NO ABD USG. Care significantly affected by the following chronic conditions: Hypertension, Obesity, HYPONATEMIA. Counseling: I had a detailed discussion with the patient and/or guardian regarding the historical points, exam findings, and any diagnostic results supporting the discharge/admit diagnosis, the presence of at least one elevated blood pressure reading (>120/80) during this emergency department visit, lab results, the need for further work-up and treatment in the hospital. 12/05 18:26 Order name: BNP; Complete Time: 19:56 sb4 12/05 18:26 Order name: Blood Culture Adult (2) sb4 12/05 18:26 Order name: CBC with Diff; Complete Time: 19:55 sb4 12/05 18:26 Order name: CMP; Complete Time: 19:56 sb4 12/05 18:26 Order name: Lactate w/ 2H reflex if indic.; Complete Time: 19:48 sb4 12/05 18:26 Order name: Protime (+inr); Complete Time: 19:38 sb4 12/05 18:26 Order name: Ptt, Activated; Complete Time: 19:38 sb4 12/05 18:26 Order name: Troponin HS; Complete Time: 19:56 sb4 12/05 18:27 Order name: Osmolality, Serum; Complete Time: 20:02 sb4 12/05 19:15 Order name: Glucose, Ancillary Testing; Complete Time: 19:15 EDMS 12/05 19:57 Order name: UA Rfx Zach Cult if indicated; Complete Time: 20:54 sb4 12/05 20:00 Order name: UDS; Complete Time: 22:01 sb4 12/05 20:14 Order name: Acetaminophen; Complete Time: 22:01 sb4 12/05 20:14 Order name: ETOH Level; Complete Time: 22:01 sb4 12/05 20:14 Order name: Salicylate; Complete Time: 22:01 sb4 12/05 19:57 Order name: Head Brain Wo Cont CT; Complete Time: 20:46 sb4 12/05 19:57 Order name: CT Abd/Pelvis - IV Contrast Only; Complete Time: 20:54 sb4 12/05 18:26 Order name: Accucheck; Complete Time: 19:06 sb4 12/05 18:26 Order name: Cardiac monitoring; Complete Time: 19:01 sb4 12/05 18:26 Order name: EKG - Nurse/Tech; Complete Time: 19:01 sb4 12/05 18:26 Order name: IV Saline Lock - Large Bore; Complete Time: 19:30 sb4 12/05 18:26 Order name: Labs collected and sent; Complete Time: 19:30 sb4 12/05 18:26 Order name: O2 Per Protocol; Complete Time: 19:30 sb4 12/05 18:26 Order name: O2 Sat Monitoring; Complete Time: 19:01 sb4 12/05 18:26 Order name: Vital Signs; Complete Time: 19:30 sb4 EC:59 Rate is 88 beats/min. Rhythm is regular, Normal Sinus Rhythm. TX interval is normal at sb4 152 msec. QRS interval is normal at 78 msec. QT interval is normal at 372 msec. No Q waves. T waves are Normal. No ST changes noted. Clinical impression: Normal ECG. Interpreted by me. Reviewed by me. 20:56 Rate is 88 beats/min. Rhythm is regular. QRS [place] is Normal. TX interval is normal. QRS hannah interval is normal. QT interval is normal. No Q waves. T waves are Normal. No ST changes noted. Clinical impression: NSR w/ Non-specific ST/T Changes and No evidence of ischemia. Interpreted by me. Reviewed by me. Administered Medications: 19:30 Drug: NS 0.9% IV 1000 ml IV at 1 bolus Per protocol; to be given as a bolus over 60 me1 minutes Route: IV; Rate: 1 bolus; Site: right antecubital; 21:30 Follow up: Response: No adverse reaction; IV Status: Completed infusion me1 19:30 Drug: Ondansetron IVP 4 mg IVP once; over 2 minutes Route: IVP; Site: right antecubital;me1 19:48 Follow up: Response: No adverse reaction; Nausea is decreased me1 19:47 Drug: Droperidol IVP 2.5 mg IVP once Route: IVP; Site: right antecubital; me1 19:59 Follow up: Response: No adverse reaction; Pain is decreased; Nausea is decreased me1 21:55 Drug: morphine IVP or IV 4 mg IVP once over 4 mins Route: IVP; Infused Over: 4 mins; kb4 Site: right antecubital; 22:17 Follow up: Response: No adverse reaction kb4 21:57 Drug: Ondansetron IVP 4 mg IVP once; over 2 minutes Route: IVP; Site: right antecubital;kb4 22:17 Follow up: Response: No adverse reaction kb4 Disposition: 20:58 Co-signature as Attending Physician, Diego Ramirez MD I agree with the assessment and hannah plan of care. 12/06 08:01 Chart complete. sb4 Disposition Summary: 12/05/24 21:01 Hospitalization Ordered Notes: Hospitalization Status: Observation hannah Provider: Ananya Gustafson cha Location: Telemetry/MedSurg (observation) hannah Condition: Stable hannah Problem: new hannah Symptoms: have improved hannah Bed/Room Type: Standard hannah Room Assignment: 425(12/05/24 22:05) [email or web address] Diagnosis - Anorexia hannah - Abdominal pain, Generalized hannah - Vomiting hannah - UTI/ Urinary tract infection, site not specified hannah Forms: - Medication Reconciliation Form hannah - SBAR form hannah - Leadership Thank You Letter hannah Signatures: Dispatcher [employer] EDDiego Angela MD MD cha Bryson, James, RN RN jb4 Dior Garcia PAGorgeC PARadha [email or web address] Radha James, RN RN me1 PEDRITO LINDA RN RN dd2 Ashlee Teauge RN RN kb4 Corrections: (The following items were deleted from the chart) 12/05 18:27 18:27 PROBNP+C.LAB.BRZ ordered. EDMS EDMS 18:27 18:27 BLOOD CULTURE*+BA.LAB.BRZ ordered. EDMS EDMS 18:27 18:27 CBC+H.LAB.BRZ ordered. EDMS EDMS 18:27 18:27 COMPREHENSIVE METABOLIC PANEL+C.LAB.BRZ ordered. EDMS EDMS 18:27 18:27 LACTATE+C.LAB.BRZ ordered. EDMS EDMS 18:27 18:27 PROTIME (+INR)+COAG.LAB.BRZ ordered. EDMS EDMS 18:27 18:27 PTT, ACTIVATED+COAG.LAB.BRZ ordered. EDMS EDMS 18:27 18:27 Troponin High Sensitivity+C.LAB.BRZ ordered. EDMS EDMS 18:27 18:27 Head Brain Wo Cont+CT.RAD.BRZ ordered. EDMS EDMS 19:57 19:57 Head Brain Wo Cont+CT.RAD.BRZ ordered. EDMS EDMS 22:05 21:01 hannah [email or web address]
[2024-12-05] MEDS ORDERED: MORPHINE 4 MG/ML SYR ONE (21:50)
--- NOTE | 2024-12-05 23:06 | P.HP ---
Certification for Inpatient Patient admitted to: Observation With expected LOS: <2 Midnights Patient will require the following post-hospital care: None Practitioner: I am a practitioner with admitting privileges, knowledge of patient current condition, hospital course, and medical plan of care. Services: Services provided to patient in accordance with Admission requirements found in Title 42 Section 412.3 of the Code of Federal Regulations Patient History Date of Service: 12/06/24 Reason for admission: Abdominal pain, nausea vomiting History of Present Illness: Patient is a 63-year-old female, with past medical history of anxiety, chronic abdominal pain, hypertension, hyponatremia, hypothyroidism, type 2 diabetes mellitus, brought to the ER today complaining of severe diffuse abdominal pain associated with nausea and vomiting nonbilious and nonbloody content. Patient states she started having abdominal pain 4 days ago at the time she states was intermediate, states today her abdominal pain was consistent, associate with nausea and vomiting which then prompted her to be brought to the ER. Patient denies having associated chest pain or shortness of breath. Course in ER. (1) CT head. Impression: No acute intracranial noted. (2) CT abdomen/pelvis. Impression: Moderate gastric dilation. Moderate amount of stool throughout the colon. Allergies hydrochlorothiazide Allergy (Verified 12/06/24 00:16) Itching/Hives/Rash ketorolac [From Toradol] Allergy (Verified 12/06/24 00:18) Itching/Hives/Rash Home Medications: Levothyroxine Sodium [Synthroid] 137 mcg PO [id number] 03/10/21 OXcarbazepine [Trileptal] 1,200 mg PO BEDTIME 07/29/22 OXcarbazepine [Trileptal] 600 mg PO DAILY 07/29/22 Metformin HCl [Glucophage*] 500 mg PO BIDWM 09/25/22 Ondansetron [Zofran (Odt)*] 4 mg PO Q8H PRN 05/10/23 Trazodone HCl 100 mg PO BEDTIME 05/10/23 ALPRAZolam [Xanax*] 1 mg PO BID 11/24/23 Fenofibrate [Tricor*] 160 mg PO BEDTIME 11/24/23 Linaclotide [Linzess] 290 mcg PO DAILY 11/24/23 Risperidone [Risperdal] 2 mg PO BID 11/24/23 Semaglutide [Ozempic] 0.5 mg SQ Q7D 11/24/23 Venlafaxine HCl [Effexor] 100 mg PO TIDWM 11/24/23 cloNIDine HCL [Catapres*] 0.3 mg PO TID 11/24/23 Pantoprazole [Protonix Tab*] 40 mg PO DAILY #30 tab 11/25/23 Sodium Chloride Tab [Sodium Chloride*] 1 gm PO TID #90 tab 03/06/24 - Past Medical/Surgical History Diabetic: Yes -: Hepatitis B -: Anxiety -: HTN -: Hypothyroidism -: Alcoholic induced seizures -: Type 2 diabetes mellitus. -: Hyponatremia -: Nicotine use dependence. -: Hyperlipidemia. -: New onset COPD. -: Thyroidectomy -: Plastic surgery breast -: hernia repair Psychosocial/ Personal History: Patient lives at home with her mother - Family History Mother -: Hypertension, Diabetes, Cancer Notes: Thyroid, Knee replacement Father -: Heart disease, Hypertension, Diabetes - Social History Smoking Status: Current every day smoker Alcohol use: No CD- Drugs: No Caffeine use: Yes Review of Systems 10-point ROS is otherwise unremarkable Gastrointestinal: Nausea, Vomiting, Abdominal Pain Physical Examination - Physical Exam General: Alert, In no apparent distress, Oriented x3 HEENT: Atraumatic, Normocephalic, PERRLA, Mucous membr. moist/pink Neck: Supple, 2+ carotid pulse no bruit, JVD not distended, No LAD, Without JVD or thyroid abnormality Respiratory: Clear to auscultation bilaterally, Normal air movement Cardiovascular: No edema, Normal pulses, Regular rate/rhythm, Normal S1 S2, Abnormal S3, No rubs, No murmurs Capillary refill: <2 Seconds Gastrointestinal: Normal bowel sounds, Soft and benign, Non-distended, W/out hepatomegaly, No masses, No rebound, Tenderness (Diffuse tenderness.), Guarding Musculoskeletal: No clubbing, No swelling, No contractures, No tenderness, No warmth Integumentary: No rashes, No breakdown, No significant lesion, No tenderness/swelling, No erythema, No warmth, No cyanosis Neurological: Normal speech, Normal tone, Sensation intact, Normal reflexes 2+, Normal affect Lymphatics: No axilla or inguinal lymphadenopathy - Studies Laboratory Data (last 24 hrs) 09/12/05/24 12/05/24 19:15 19:15 19:15 WBC 9.60 Hgb 15.6 H Hct 46.0 H Plt Count 243 PT 11.8 INR 1.05 APTT 30.7 Sodium 141 Potassium 3.7 BUN 17 Creatinine 0.81 Glucose 112 H Total Bilirubin 0.3 AST 16 ALT 29 Alkaline Phosphatase 95 Female Exam - Breasts Breasts: Normal configuration, Normal contours, Symmetrical Assessment and Plan - Plan Patient presents to the ER with complaint of abdominal pain, associated with nausea vomiting nonbilious and nonbloody content. (1)Abdominal pain with associated nausea and vomiting/constipation. Patient CT abdomen and pelvis impression moderate amount of stool throughout the colon. - IV LR at 50 mL/ HR. -Zofran 4 mg IV as needed every 6 hours. -Morphine 2 mg IV as needed every 4 hours. -Order psyllium 1 pack p.o. twice daily. (2)chronic diabetes mellitus type 2. -ACHS with moderate sliding scale coverage. -Resume home medication when reconciled. (3) DVT prophylaxis. -Lovenox 40 mg subcu daily. (4)To review patient home medication when reconciled. (5)Explained the entire treatment plan to the patient, solicited questions answered and voiced understanding. Discharge Plan: Home Plan to discharge in: 48 Hours - Advance Directives Does patient have a Living Will: No Does patient have a Durable POA for Healthcare: No - Code Status/Comfort Care Code Status Assessed: Yes Code Status: Full Code Critical Care: No Time Spent Managing Pts Care (In Minutes): 55
[2024-12-05] MEDS: ACETAMINOPHEN 325 MG TABLET PO PRN (23:29)
[2024-12-05 23:45] VITALS: BMI 19.9
[2024-12-06] MEDS: ONDANSETRON 4 MG/2 ML VIAL IV PRN (00:31)
[2024-12-06] MEDS: MORPHINE 2 MG/ML SYR IV PRN (00:31)
[2024-12-06] MEDS: HYDRALAZINE HCL 20 MG/ML VIAL IV ONE (03:16)
[2024-12-06] MEDS: HYDROMORPHONE HCL 0.5 MG/0.5 ML INJ IV ONE (04:24)
[2024-12-06] MEDS: METOPROLOL XL 50 MG TAB PO ONE (04:24)
[2024-12-06] MEDS: Ringers Lactate 1,000 ML IV SCH (06:22)
[2024-12-06] MEDS: INSULIN REGULAR (HUMAN) 100 UNIT/ML SQ SCH (07:30)
[2024-12-06 07:33] LABS: Absolute Lymphocytes (CBC) 2.3 K/uL (0.7-4.9); Hematocrit 42.1 % (36.0-45.0); Hemoglobin 14.1 g/dL (12.0-15.0); MCH 30.0 pg (27.0-35.0); MCHC 33.4 g/dL (32.0-36.0); MCV 89.7 fL (80-100); MPV 8.0 fL (7.6-11.3); Nucleated RBC Absolute Count 0.0 (0-0); Nucleated Red Blood Cells % 0.0 % (0-0); RBC Red Blood Cell Count 4.69 M/uL (3.86-4.86); White Blood Count 14.20 thou/uL (4.3-10.9)
[2024-12-06] MEDS: PSYLLIUM 1 PKT PO SCH (07:50)
[2024-12-06] MEDS: ENOXAPARIN 40 MG/0.4 ML SQ SCH (07:50)
[2024-12-06] MEDS: AMLODIPINE 5 MG TAB PO SCH (08:14)
[2024-12-06 08:21] LABS: ALT/SGPT 19.0 U/L (13-56); AST/SGOT 13.0 U/L (15-37); Albumin 3.4 g/dL (3.4-5.0); Albumin/Globulin Ratio 0.9 (1.1-1.8); Alkaline Phosphatase 78.0 U/L (45-117); Anion Gap 8.7 mEq/L (5.0-15.0); BUN Blood Urea Nitrogen 9.0 mg/dL (7-18); Globulin 4.0 g/dL (2.3-3.5); Glucose Level 156.0 mg/dL (74-106); Magnesium 1.7 mg/dL (1.6-2.4); Potassium 3.7 mEq/L (3.5-5.1)
[2024-12-06] MEDS: OLANZapine 2.5 MG TAB PO ONE (09:08)
[2024-12-06] MEDS: LORazepam 2 MG/ML VIAL IV ONE ×2 (09:38→13:19)
[2024-12-06] MEDS: HYDRALAZINE HCL 20 MG/ML VIAL IV PRN (10:36)
[2024-12-06] MEDS: POTASSIUM CL SA 10 MEQ TAB PO ONE (10:58)
[2024-12-06 11:12] VITALS: O2SAT 97
[2024-12-06] MEDS: MAGNESIUM SULFATE 1 gm IVPB 1 GM/100 ML BAG IV ONE (12:36)
[2024-12-06 12:46] LABS: Anion Gap 9.5 mEq/L (5.0-15.0); BUN Blood Urea Nitrogen 11.0 mg/dL (7-18); Glucose Level 157.0 mg/dL (74-106); Potassium 3.5 mEq/L (3.5-5.1)
[2024-12-06] MEDS: KCL 20 MEQ/100 mL IVPB 20 MEQ/100 ML BAG IV SCH (13:34)
[2024-12-06] MEDS: SODIUM CHLORIDE 1 GM TAB PO SCH (14:52)
[2024-12-06] MEDS: RISPERIDONE 1 MG TABLET PO SCH (14:52)
[2024-12-06] MEDS: CLONIDINE HCL 0.3 MG TAB PO SCH (14:52)
[2024-12-06] MEDS: VENLAFAXINE HCL 100 MG PO SCH (16:55)
[2024-12-06] MEDS: ALPRAZOLAM 1 MG TABLET PO SCH (18:05)
--- NOTE | 2024-12-06 18:32 | P.PN ---
Subjective Date of Service: 12/06/24 Chief Complaint: Abdominal pain, nausea vomiting Patient has been quite agitated today, shows reduction in voice, getting up from bed. She was given IV Ativan which made her calm on home medications including Xanax resumed. No vomiting since admission, no diarrhea. I am unable to obtain any subjective, patient keeps screaming 'I want to go home'. Physical Examination - Vital Signs Temperature: 98.0 F Blood Pressure: 191/87 Pulse: 102 Respirations: 16 Pulse Ox (%): 98 - Studies Laboratory Data (last 24 hrs) 12/05/24 12/05/24 12/05/24 19:15 19:15 19:15 WBC 9.60 Hgb 15.6 H Hct 46.0 H Plt Count 243 PT 11.8 INR 1.05 APTT 30.7 Sodium 141 Potassium 3.7 BUN 17 Creatinine 0.81 Glucose 112 H Total Bilirubin 0.3 AST 16 ALT 29 Alkaline Phosphatase 95 Assessment And Plan - Plan Physical examination General: Alert and oriented x 2, NAD, HEENT: Conjunctiva not pale, anicteric sclera Neck: Supple, no elevated JVD Heart: Heart sounds 1 and 2 normal, regular rhythm, normal rate, no pedal edema Lungs: Clear to auscultation bilaterally, adequate breath sounds bilaterally, no rhonchi or crackles. Abdomen: Soft, nondistended, nontender, normal bowel sounds. Extremities: No tenderness, no deformity Skin: Normal skin turgor, no rash, no nodules or ulcers. Neuro: No focal motor deficit. Normal speech. Psychiatry: Agitated. Plan: Anxiety disorder with agitation Hyperactive delirium Urine toxicology screen is positive for benzodiazepine. Patient has prescribed benzodiazepines Resume home meds-Xanax, venlafaxine. Resume Risperdal Ativan as needed for agitation Abdominal pain Nausea and vomiting Functional constipation. Symptoms likely related to constipation. Symptoms improved. Stool softeners and laxatives as needed Continue IV fluid Antiemetics as needed Diabetes mellitus type 2 ACHS with moderate sliding scale coverage. DVT prophylaxis: Lovenox.
[2024-12-06] MEDS ORDERED: HOME MED 1 EA UNK (Trazodone Hcl [Trazodone Hcl] 100 MG Tablet) PO SCH (21:00)
[2024-12-06] MEDS ORDERED: HOME MED 1 EA UNK (Risperidone [Risperdal] 2 MG Tablet) PO SCH (21:00)
[2024-12-06] MEDS ORDERED: ALPRAZOLAM 1 MG TABLET PO SCH (21:00)
[2024-12-06] MEDS ORDERED: RISPERIDONE 1 MG TABLET PO SCH (21:00)
[2024-12-06] MEDS: TRAZODONE 50 MG TABLET PO SCH (22:06)
[2024-12-07] MEDS ORDERED: HOME MED 1 EA UNK (Levothyroxine Sodium [Synthroid] 137 MCG Tablet) PO SCH (06:00)
[2024-12-07] MEDS: LEVOTHYROXINE SOD 0.025 MG TAB PO SCH (06:03)
[2024-12-07] MEDS: LEVOTHYROXINE SOD 0.112 MG TAB PO SCH (06:03)
[2024-12-07] MEDS ORDERED: LEVOTHYROXINE SOD 0.112 MG TAB PO SCH (06:30)
--- NOTE | 2024-12-07 08:46 | P.DS ---
Admission Date: 12/05/24 Discharge Date: 12/07/24 Disposition: ROUTINE DISCHARGE Discharge Condition: FAIR Reason for Admission: Abdominal pain, nausea vomiting Brief History of Present Illness: 63-year-old woman, with past medical history of anxiety, chronic abdominal pain, hypertension, hyponatremia, hypothyroidism, type 2 diabetes mellitus, brought to the ER with a complaint of abdominal pain associated with nausea and vomiting of 4 days duration. Patient was evaluated in the ED andCT head showed no acute intracranial noted. CT abdomen/pelvis showed moderate gastric dilation and moderate amount of stool throughout the colon. Patient was hospitalized for further evaluation and management. Hospital Course: Patient placed on observation on the medical floor and the following medical problems addressed: Anxiety disorder with agitation Hyperactive delirium Urine toxicology screen was positive for benzodiazepine. Patient takes prescribed benzodiazepines. Resumed home meds-Xanax, venlafaxine and Risperdal which controlled her agitation She needed Ativan as needed for agitation briefly. Abdominal pain Nausea and vomiting Functional constipation. Symptoms likely related to constipation. Nausea and vomiting and abdominal pain resolved Patient was put on stool softeners and laxatives however no bowel movement. Patient treated with IV fluid She requested to go home. She is discharged with MiraLAX and magnesium glycinate for constipation. Diabetes mellitus type 2 Managed with ACHS with moderate sliding scale coverage during the hospital stay. Vital Signs/Physical Exam: Temp Pulse Resp BP Pulse Ox 97.8 F 95 H 18 158/73 H 96 12/06/24 20:00 12/06/24 21:00 12/06/24 20:00 12/06/24 21:00 12/06/24 20:00 General: Alert, In no apparent distress, Oriented x3 HEENT: Mucous membr. moist/pink, Sclerae nonicteric Neck: JVD not distended Respiratory: Clear to auscultation bilaterally, Normal air movement Cardiovascular: No edema, Regular rate/rhythm, Normal S1 S2 Gastrointestinal: Normal bowel sounds, Soft and benign, Non-distended Musculoskeletal: No swelling Integumentary: No cyanosis Neurological: Normal strength at 5/5 x4 extr Laboratory Data at Discharge: WBC 14.20 thou/uL (4.3-10.9) H 12/06/24 07:19 Hgb 14.1 g/dL (12.0-15.0) D 12/06/24 07:19 Hct 42.1 % (36.0-45.0) 12/06/24 07:19 Plt Count 220 thou/uL (152-406) 12/06/24 07:19 PT 11.8 SECONDS (10-13.0) 12/05/24 19:15 INR 1.05 12/05/24 19:15 APTT 30.7 SECONDS (27.2-37.4) 12/05/24 19:15 Sodium 139 mEq/L (136-145) 12/06/24 12:19 Potassium 3.5 mEq/L (3.5-5.1) 12/06/24 12:19 BUN 11 mg/dL (7-18) 12/06/24 12:19 Creatinine 0.71 mg/dL (0.55-1.02) 12/06/24 12:19 Glucose 157 mg/dL (74-106) H 12/06/24 12:19 Phosphorus 3.7 mg/dL (2.5-4.9) 12/06/24 07:19 Magnesium 1.7 mg/dL (1.6-2.4) 12/06/24 07:19 Total Bilirubin 0.3 mg/dL (0.2-1.0) 12/06/24 07:19 AST 13 U/L (15-37) L 12/06/24 07:19 ALT 19 U/L (13-56) 12/06/24 07:19 Alkaline Phosphatase 78 U/L (45-117) 12/06/24 07:19 Home Medications: Levothyroxine Sodium [Synthroid] 137 mcg PO [id number] 03/10/21 Metformin HCl [Glucophage*] 500 mg PO BIDWM 09/25/22 Ondansetron [Zofran (Odt)*] 4 mg PO Q12H PRN 05/10/23 Trazodone HCl 100 mg PO BEDTIME 05/10/23 ALPRAZolam [Xanax*] 1 mg PO BID 11/24/23 Risperidone [Risperdal] 2 mg PO BID 11/24/23 Venlafaxine HCl [Effexor] 100 mg PO TIDWM 11/24/23 cloNIDine HCL [Catapres*] 0.3 mg PO TID 11/24/23 Sodium Chloride Tab [Sodium Chloride*] 1 gm PO TID #90 tab 03/06/24 Linaclotide [Linzess] 1 tab PO DAILY 12/06/24 Losartan/Hydrochlorothiazide [Losartan-Hctz 100-25 mg Tab] 1 tab PO DAILY 12/06/24 Amlodipine [Norvasc*] 5 mg PO DAILY #30 tab 12/07/24 Magnesium Glycinate 200 mg PO BID #20 cap 12/07/24 Polyethylene Glycol 3350 [Miralax] 17 gm PO BID #6 packet 12/07/24 New Medications: Magnesium Glycinate 200 mg PO BID #20 cap Polyethylene Glycol 3350 [Miralax] 17 gm PO BID #6 packet Amlodipine [Norvasc*] 5 mg PO DAILY #30 tab Diet: ADA Activity: Fall precautions Followup: NONE,NONE [Primary Care Provider] - 1 Week Shantel Johns PANMAN [OUTSIDE PHYSICIAN] - 1 Week Time spent managing pt's care (in minutes): 32
[2024-12-07 08:51] VITALS: BP 132/70; TEMP 98.8
[2024-12-07] MEDS ORDERED: LOSARTAN/HCTZ 50-12.5 PO SCH (09:00)
== END 2024-12-07 09:30 | disposition home or self-care (01) ==
LOC: ER 17:58 → 4TH 23:03
PROVIDERS: ADMIT Hospitalist; ATTEND Internal Medicine
DX: R10.9 Unspecified abdominal pain (principal); R11.2 Nausea with vomiting, unspecified; F41.9 Anxiety disorder, unspecified; K59.00 Constipation, unspecified; R41.0 Disorientation, unspecified; I10 Essential (primary) hypertension; E87.1 Hypo-osmolality and hyponatremia; E11.9 Type 2 diabetes mellitus without complications; R45.1 Restlessness and agitation; Z88.8 Allergy status to other drugs, medicaments and biological substances
CPT/HCPCS: 96361; 93005; 87040 ×2; 85025 ×2; 81001; 80048; 36415 ×2; 83735; 84100; 85610; 82947 ×7; 83605; 85730; 84484; 80053 ×2; 83880; 80307; 83930; 70450; 74177; 96375; 96374; 99285; 80143; 80179; 82077; Q9967; J3480; J3475; J0360 ×3; J2270 ×3; J1171; J2405 ×5; J1790; J1815; J7120 ×2; J7030; G0378 ×3; J1650

== ENCOUNTER 2024-12-22 14:43 | Emergency (ER) | payer MEDICAID, OTHER ==
[2024-12-22] MEDS ORDERED: NA CHLORIDE 0.9% 100 ML ONE (15:21)
[2024-12-22] MEDS ORDERED: DIAZEPAM 10 MG/2 ML INJ SYRINGE ONE (15:21)
[2024-12-22] MEDS ORDERED: METOCLOPRAMIDE 10 MG/2mL INJ ONE (15:21)
[2024-12-22 15:49] LABS: Absolute Lymphocytes (CBC) 3.0 K/uL (0.7-4.9); Hematocrit 43.8 % (36.0-45.0); Hemoglobin 15.0 g/dL (12.0-15.0); MCH 30.2 pg (27.0-35.0); MCHC 34.2 g/dL (32.0-36.0); MCV 88.2 fL (80-100); MPV 7.3 fL (7.6-11.3); Nucleated RBC Absolute Count 0.0 (0-0); Nucleated Red Blood Cells % 0.1 % (0-0); RBC Red Blood Cell Count 4.97 M/uL (3.86-4.86); White Blood Count 11.80 thou/uL (4.3-10.9)
[2024-12-22 15:54] LABS: Sqamous Epithelial 20-50 /HPF (None Seen); Urine Culture Reflex Order NOT NEEDED; Urine Microscopic Reflex YN ORDER UMIC; Urine WBC Clump Rare /HPF (None Seen); Urine Yeast (Budding) Trace /HPF (None Seen)
--- NOTE | 2024-12-22 15:56 | RAD REPORT ---
EXAMINATION: ONE VIEW CHEST XR CLINICAL INDICATION: vomiting TECHNIQUE: Frontal chest projection is submitted. Examination is limited by patient positioning and t echnique. COMPARISON: 10/06/2024 FINDINGS: The lungs are diffusely emphysematous but grossly clear. The heart is normal in size. No displaced fr actures identified. IMPRESSION: COPD without an acute process suspected.
[2024-12-22 16:01] LABS: PT Prothrombin Time 12.2 SECONDS (10-13.0); PTT, Activated Partial Thromb 31.7 SECONDS (27.2-37.4); Protime INR 1.08
[2024-12-22 16:11] LABS: ALT/SGPT 27 U/L (13-56); AST/SGOT 12 U/L (15-37); Albumin 3.9 g/dL (3.4-5.0); Albumin/Globulin Ratio 0.8 (1.1-1.8); Alkaline Phosphatase 87 U/L (45-117); Anion Gap 12.4 mEq/L (5.0-15.0); BUN Blood Urea Nitrogen 15 mg/dL (7-18); Globulin 4.8 g/dL (2.3-3.5); Glucose Level 90 mg/dL (74-106); Magnesium 1.9 mg/dL (1.6-2.4); NT PRO-BNP 224 pg/mL (<125); Potassium 3.4 mEq/L (3.5-5.1); Troponin High Sensitivity 7.2 pg/mL (<58.9)
[2024-12-22 16:13] LABS: Bilirubin Indirect, Calculated 0.1 mg/dL (0.2-0.8)
[2024-12-22] MEDS ORDERED: NA CHLORIDE 0.9% 2,000 ML ONE (16:14)
[2024-12-22 16:45] LABS: METHAMPHETAM NEGATIVE (NEGATIVE); THC Cannibis NEGATIVE (NEGATIVE)
[2024-12-22] MEDS ORDERED: NA CHLORIDE 0.9% 50 ML ONE (17:07)
[2024-12-22] MEDS ORDERED: CEFTRIAXONE 1000 MG/VIAL ONE (17:07)
--- NOTE | 2024-12-22 17:23 | EDPHYS ---
Physician Documentation [facility] Name: Jaimie Amanda Age: 64 yrs Sex: Female : 1960 Arrival Date: 12/22/2024 Time: 14:43 Bed 15 Private MD: ED Physician Diego Ramirez HPI: 12/22 15:15 This 64 yrs old Female presents to ER via Unassigned with complaints of Altered Mental cp Status. 15:15 The patient presents with confusion. cp 15:15 Onset: The symptoms/episode began/occurred today. cp 15:15 Possible causes: sepsis, history of hyponatremia. Associated signs and symptoms: cp Pertinent positives: abdominal pain, nausea, vomiting, Pertinent negatives: chest pain, combativeness, diaphoresis, diarrhea. Current symptoms: In the emergency department the patient's symptoms are unchanged from the initial presentation, despite EMS interventions. Patient's baseline: Neuro: alert and fully oriented, Motor: no deficits, Ambulation: walks without assistance, Speech: normal. Historical: - Allergies: 15:18 hydrochlorothiazide; cc6 15:18 Toradol; cc6 - PMHx: 15:18 Anxiety; Chronic Abdominal Pain; Hypertensive disorder; hyponatremia (Unknown); cc6 Hypothyroidism; NIDDM; - Immunization history:: Adult Immunizations unknown. - Infectious Disease History:: Denies. - Social history:: Smoking status: unknown. ROS: 15:20 Constitutional: Positive for poor PO intake, Negative for fever, cp 15:20 Eyes: Negative for injury, pain, redness, and discharge, cp 15:20 Cardiovascular: Negative for chest pain, 15:20 Respiratory: Negative for cough, shortness of breath, wheezing, 15:20 Abdomen/GI: Positive for abdominal pain, nausea and vomiting, Negative for diarrhea, constipation, 15:20 Neuro: Positive for altered mental status, Negative for seizure activity, 15:20 All other systems are negative, Exam: 15:25 Constitutional: The patient appears alert, awake, non-diaphoretic, non-toxic, well cp developed, well nourished, anxious, uncomfortable, 15:25 Head/Face: Normocephalic, atraumatic. cp 15:25 Eyes: Periorbital structures: appear normal, Pupils: constricted, bilaterally, Extraocular movements: intact throughout, Conjunctiva: normal, no exudate, no injection, Sclera: no appreciated abnormality, Lids and lashes: appear normal, bilaterally, 15:25 ENT: External ear(s): are unremarkable, Nose: is normal, Mouth: Lips: moist, Oral mucosa: moist, Posterior pharynx: Airway: no evidence of obstruction, patent, 15:25 Chest/axilla: Inspection: normal, Palpation: is normal, no crepitus, no tenderness, 15:25 Cardiovascular: Rate: tachycardic, Rhythm: regular, 15:25 Respiratory: the patient does not display signs of respiratory distress, Respirations: shallow respirations, that is mild, Breath sounds: are clear throughout, no decreased breath sounds, no stridor, no wheezing, 15:25 Abdomen/GI: Inspection: distension, that is mild, Bowel sounds: active, all quadrants, Palpation: soft, in all quadrants, moderate abdominal tenderness, in all quadrants, 15:25 Skin: cellulitis, is not appreciated, no rash present. 15:25 Neuro: Orientation: to person, Mentation: able to follow commands, Motor: moves all fours, no focal deficits, Sensation: no obvious gross deficits, 16:01 ECG was reviewed by the Attending Physician. cp Vital Signs: 15:17 BP 163 / 115; Pulse 106; Resp 24; Temp 97.8; Pulse Ox 100% on R/A; cc6 16:22 Weight 63.5 kg; ph 16:40 BP 159 / 96; Pulse 97; Resp 18; Pulse Ox 98% on R/A; ph MDM: 15:02 Medical Screening Exam initiated cp 15:45 Differential Diagnosis: electrolyte abnormality, alcohol intoxication, intracranial cp bleed, overdose, pneumonia, seizure, sepsis, UTI, volume depletion, sepsis. 17:18 Data reviewed: vital signs, nurses notes, lab test result(s), EKG, radiologic studies, cp plain films. Refusal of service: The patient/guardian displays adequate decision making capability and despite a detailed discussion of alternatives, benefits, risks, and consequences refuses: CT Scan, continued IV fluids and treatment. ED course: Vital signs noted. Discussed with patient elevated lactate and white blood cell count concerning for an infection. Urine sample shows WBCs. Will provide script for oral antibiotic. Patient is able to make informed decisions and refuses any further care at this time and request to leave facility. 17:20 I considered the following discharge prescriptions or medication management in the emergency department Medications were administered in the Emergency Department. See MAR. 17:20 Independent interpretation of the following test(s) in the Emergency Department EKG: See my EKG interpretation above X-Ray: My interpretation is chest xray negative for infiltrates. Test considered but Not performed: CT: abdomen/pelvis, head CT. Care significantly affected by the following chronic conditions: Hypertension. Counseling: I had a detailed discussion with the patient and/or guardian regarding the historical points, exam findings, and any diagnostic results supporting the discharge/admit diagnosis, lab results, radiology results, to return to the emergency department if symptoms worsen or persist or if there are any questions or concerns that arise at home. 12/22 15:05 Order name: Basic Metabolic Panel; Complete Time: 16:20 12/22 16:20 Interpretation: Normal except: K 3.4; CRE 1.06; GFR 59. 12/22 15:05 Order name: CBC with Diff; Complete Time: 15:58 12/22 15:58 Interpretation: Normal except: WBC 11.80; RBC 4.97; PLT 431; MPV 7.3. 12/22 15:05 Order name: LFT's; Complete Time: 16:20 12/22 16:21 Interpretation: Normal except: AST 12; IBILI, CALC 0.1; TP 8.7; GLOB 4.8; A/G 0.8. 12/22 15:05 Order name: Magnesium; Complete Time: 16:20 12/22 15:05 Order name: NT PRO-BNP; Complete Time: 16:20 12/22 15:05 Order name: PT-INR; Complete Time: 16:20 12/22 15:05 Order name: Troponin HS; Complete Time: 16:20 12/22 15:05 Order name: Blood Culture Adult (2) 12/22 15:05 Order name: Lactate w/ 2H reflex if indic.; Complete Time: 16:20 12/22 16:55 Interpretation: Reviewed. 12/22 15:05 Order name: Ptt, Activated; Complete Time: 16:20 12/22 15:05 Order name: Urine Osmolality; Complete Time: 16:54 12/22 15:05 Order name: Urine Sodium Random; Complete Time: 15:58 12/22 15:05 Order name: UA Rfx Zach Cult if indicated; Complete Time: 15:58 cp 12/22 15:05 Order name: Osmolality, Serum cp 12/22 16:55 Interpretation: Abnormal: OSMOL 398. cp 12/22 16:00 Order name: UDS; Complete Time: 16:54 cp 12/22 16:55 Interpretation: Reviewed. cp 12/22 16:00 Order name: ETOH Level; Complete Time: 16:54 cp 12/22 16:20 Order name: Ghost Lactate-NO COLLECT Timer EDMS 12/22 15:05 Order name: XRAY Chest (1 view); Complete Time: 15:58 cp 12/22 15:05 Order name: EKG; Complete Time: 15:06 cp 12/22 15:05 Order name: Cardiac monitoring; Complete Time: 16:06 cp 12/22 15:05 Order name: EKG - Nurse/Tech; Complete Time: 16:06 cp 12/22 15:05 Order name: IV Saline Lock; Complete Time: 15:43 cp 12/22 15:05 Order name: Labs collected and sent; Complete Time: 15:43 cp 12/22 15:05 Order name: O2 Per Protocol; Complete Time: 15:43 cp 12/22 15:05 Order name: O2 Sat Monitoring; Complete Time: 15:43 cp 12/22 15:05 Order name: Accucheck; Complete Time: 15:43 cp 12/22 15:05 Order name: IV Saline Lock - Large Bore; Complete Time: 15:43 cp 12/22 15:05 Order name: Vital Signs; Complete Time: 15:43 cp EC:01 Rate is 102 beats/min. Rhythm is regular. OR interval is normal. QRS interval is cp normal. QT interval is normal. T waves are Inverted in leads aVL, aVR. Interpreted by me. Reviewed by me. Administered Medications: 15:43 Drug: Diazepam IVP 5 mg IVP once Route: IVP; Site: left antecubital; ph 16:41 Follow up: Response: No adverse reaction ph 15:43 Drug: metoCLOPramide IVP 10 mg IVP once; over 1 to 2 minutes Route: IVP; Site: left ph antecubital; 16:41 Follow up: Response: No adverse reaction ph 16:40 Drug: Diazepam IVP 5 mg IVP once Route: IVP; Site: left antecubital; ph 17:31 Follow up: Response: No adverse reaction ll1 16:40 Drug: NS 0.9% IV (30 ml/kg) 30 ml/kg IV at bolus once; Sepsis Protocol; to be given as ph a bolus over 90 minutes Route: IV; Rate: bolus; Site: left antecubital; 17:33 Follow up: Response: No adverse reaction; IV Intake: 1000ml ; pt refused additional ph fluid bolus 16:40 CANCELLED (Duplicate Order): ns 0.9% (30 ml/kg) 30 ml/kg IV at bolus once; Sepsis ph Protocol; to be given as a bolus over 90 minutes 17:33 Not Given (Patient Refused): [email or web address] grams IV at calculated rate once; Given slow IV ph push per pharmacy instructions Disposition Summary: 12/22/24 17:22 Left Against Medical Advice Notes: Location: Home cp Problem: new cp Symptoms: have improved cp Condition: Fair cp Diagnosis - Severe sepsis with septic shock cp - UTI/ Urinary tract infection, site not specified cp Followup: cp - With: Emergency Department - When: As needed - Reason: Worsening of condition Discharge Instructions: - Discharge Summary Sheet cp - Sepsis, Diagnosis, Adult cp - Urinary Tract Infection, Adult cp Prescriptions: - cefpodoxime 200 mg Oral tablet - take 1 tablet ORAL route every 12 hours for 10 days with food; 20 tablet; cp Refills: 0, Product Selection Permitted Addendum: 12/24/2024 07:30 Co-signature as Attending Physician, Diego Ramirez MD I agree with the assessment and c cordero plan of care. Signatures: Dispatcher [employer] Diego Osorio MD MD cha Hall, Patricia, RN RN ph Diego Ang PA-C PARadha cp Yaquelin Jaffe RN RN cc6 Mikhail Otero RN ll1 Corrections: (The following items were deleted from the chart) 12/22 15:06 15:06 BASIC METABOLIC PANEL+C.LAB.BRZ ordered. EDMS EDMS 15:06 15:06 CBC+H.LAB.BRZ ordered. EDMS EDMS 15:06 15:06 HEPATIC FUNCTION+C.LAB.BRZ ordered. EDMS EDMS 15:06 15:06 MAGNESIUM+C.LAB.BRZ ordered. EDMS EDMS 15:06 15:06 PROBNP+C.LAB.BRZ ordered. EDMS EDMS 15:06 15:06 PROTIME (+INR)+COAG.LAB.BRZ ordered. EDMS EDMS 15:06 15:06 Troponin High Sensitivity+C.LAB.BRZ ordered. EDMS EDMS 15:06 15:06 BLOOD CULTURE*+BA.LAB.BRZ ordered. EDMS EDMS 15:06 15:06 LACTATE+C.LAB.BRZ ordered. EDMS EDMS 15:06 15:06 PTT, ACTIVATED+COAG.LAB.BRZ ordered. EDMS EDMS 15:06 15:06 Osmolality, Urine ordered. EDMS EDMS 15:06 15:06 URINE SODIUM RANDOM+CHEM UR.LAB.BRZ ordered. EDMS EDMS 15:06 15:06 UA Rfx Zach Cult if indicated+U.LAB.BRZ ordered. EDMS EDMS 15:06 15:06 OSMOLALITY, SERUM+SC.LAB.BRZ ordered. EDMS EDMS 16:40 16:22 NS 0.9% IV (30 ml/kg) 30 ml/kg IV at bolus once; Sepsis Protocol; to be given as ph a bolus over 90 minutes ordered. ph 17:30 15:59 Head Brain Wo Cont+CT.RAD.BRZ ordered. EDMS EDMS 17:30 16:33 Chest Abdomen Pelvis W Con+CT.RAD.BRZ ordered. EDMS EDMS 12/23 02:21 12/22 17:18 ED course: Vital signs noted. Discussed with patient elevated lactate and cp white blood cell count concerning for an infection. Patient is able to make informed decisions and refuses any further care at this time and request to leave facility. cp
--- NOTE | 2024-12-22 17:23 | ER ---
Nurse's Notes [facility] Name: Jaimie Amanda Age: 64 yrs Sex: Female : 1960 Arrival Date: 12/22/2024 Time: 14:43 Bed 15 Private MD: Diagnosis: Severe sepsis with septic shock;UTI/ Urinary tract infection, site not specified Presentation: 12/22 15:15 Chief complaint: EMS states: Abdominal pain 12/16 x 2 days, N/V, hx of chronic cc6 abdominal pain, Pt hypertensive and tachycardic. IV to LAC, gave 1 gram IV Tylenol, 4 mg Zofran. 15:17 Coronavirus screen: At this time, the client does not indicate any symptoms associated cc6 with coronavirus-19. Ebola Screen: No symptoms or risks identified at this time. Initial Sepsis Screen: Does the patient meet any 2 criteria? No. Patient's initial sepsis screen is negative. Does the patient have a suspected source of infection? No. Patient's initial sepsis screen is negative. Risk Assessment: Do you want to hurt yourself or someone else? Patient reports no desire to harm self or others. Onset of symptoms was December 22, 2024. 15:17 Method Of Arrival: EMS: [facility] cc6 15:17 Acuity: ZHEN 2 cc6 Historical: - Allergies: 15:18 hydrochlorothiazide; cc6 15:18 Toradol; cc6 - PMHx: 15:18 Anxiety; Chronic Abdominal Pain; Hypertensive disorder; hyponatremia (Unknown); cc6 Hypothyroidism; NIDDM; - Immunization history:: Adult Immunizations unknown. - Infectious Disease History:: Denies. - Social history:: Smoking status: unknown. Screenin:41 [facility] ED Fall Risk Assessment (Adult) History of falling in the last 3 months, ph including since admission No falls in past 3 months (0 pts) Confusion or Disorientation No (0 pts) Intoxicated or Sedated No (0 pts) Impaired Gait No (0 pts) Mobility Assist Device Used No (0 pt) Altered Elimination No (0 pt) Score/Fall Risk Level 0 - 2 = Low Risk Oriented to surroundings, Maintained a safe environment, Hourly rounding (assess needs \\T\\ fall precautionary measures) done. Abuse screen: Denies threats or abuse. Denies injuries from another. Nutritional screening: No deficits noted. Tuberculosis screening: No symptoms or risk factors identified. Assessment: 15:42 General: Appears in no apparent distress. uncomfortable, Behavior is cooperative, ph anxious. Pain: Complains of pain in abdomen. Neuro: Level of Consciousness is awake, alert, obeys commands, Oriented to person, place, time, situation. Cardiovascular: Capillary refill < 3 seconds in bilateral fingers Patient's skin is warm and dry. Respiratory: Airway is patent Respiratory effort is even, unlabored, Respiratory pattern is tachypnea. GI: Abdomen is flat, non-distended, Reports lower abdominal pain, upper abdominal pain, nausea, vomiting. Derm: Skin is pink, warm \\T\\ dry. 16:40 Reassessment: Patient appears in no apparent distress at this time. Patient and/or ph family updated on plan of care and expected duration. Pain level reassessed. Patient is alert, oriented x 3, equal unlabored respirations, skin warm/dry/pink. Patient states feeling better. 17:29 Reassessment: Pt found sitting at end of bed w/ IV d/c, appears intact, states, " I ph want to go home. I'm feeling better." Explained to pt that she needed IV fluids and antibiotics, pt states, "" No I'm ready to go, I'm refusing anymore care." ERP notified and at bedside, pt currently A\\T\\O x 4, states that she has called her mother to come pick her up. Pt to sign out AMA, provided prescription for antibiotics Patient states feeling better. Patient states symptoms have improved. Vital Signs: 15:17 BP 163 / 115; Pulse 106; Resp 24; Temp 97.8; Pulse Ox 100% on R/A; cc6 16:22 Weight 63.5 kg; ph 16:40 BP 159 / 96; Pulse 97; Resp 18; Pulse Ox 98% on R/A; ph ED Course: 15:01 Patient arrived in ED. ll1 15:01 Diego Ang PA-C is PHCP. cp 15:01 Diego Ramirez MD is Attending Physician. cp 15:15 Yaquelin Jaffe, CATY is Primary Nurse. cc6 15:18 Triage completed. cc6 15:19 Arm band placed on Patient placed in an exam room, on a stretcher, on pulse oximetry. cc6 15:40 Initial lab(s) drawn, by me, sent to lab. Maintain EMS IV. Dressing intact. Good blood ph return noted. Site clean \\T\\ dry. Gauge \\T\\ site: 20 LAC. Flushed with 10 mL NS. 15:42 Patient has correct armband on for positive identification. Bed in low position. Call ph light in reach. Side rails up X2. asset liability analyst on. Pulse ox on. NIBP on. Warm blanket given. Pillow given. 15:47 XRAY Chest (1 view) In Process Unspecified. EDMS Administered Medications: 15:43 Drug: Diazepam IVP 5 mg IVP once Route: IVP; Site: left antecubital; ph 16:41 Follow up: Response: No adverse reaction ph 15:43 Drug: metoCLOPramide IVP 10 mg IVP once; over 1 to 2 minutes Route: IVP; Site: left ph antecubital; 16:41 Follow up: Response: No adverse reaction ph 16:40 Drug: Diazepam IVP 5 mg IVP once Route: IVP; Site: left antecubital; ph 17:31 Follow up: Response: No adverse reaction 1 16:40 Drug: NS 0.9% IV (30 ml/kg) 30 ml/kg IV at bolus once; Sepsis Protocol; to be given as ph a bolus over 90 minutes Route: IV; Rate: bolus; Site: left antecubital; 17:33 Follow up: Response: No adverse reaction; IV Intake: 1000ml ; pt refused additional ph fluid bolus 16:40 CANCELLED (Duplicate Order): ns 0.9% (30 ml/kg) 30 ml/kg IV at bolus once; Sepsis ph Protocol; to be given as a bolus over 90 minutes 17:33 Not Given (Patient Refused): rocephin1 grams IV at calculated rate once; Given slow IV ph push per pharmacy instructions Medication: 15:42 VIS not applicable for this client. ph Intake: 17:33 IV: 1000ml; Total: 1000ml. ph Outcome: 17:31 Patient left the ED. ll1 Signatures: Dispatcher [employer] EDMS Shruthi Donohue RN RN ph Diego Ang PA-C PA-C cp Lewis, Lynsay, RN RN ll1 Yaquelin Jaffe RN RN cc6 Corrections: (The following items were deleted from the chart) 15:18 15:15 Chief complaint: EMS states: Abdominal pain 10/10 x 2 days, N/V, hx of chronic cc6 abdominal pain, Pt hypertensive and tachycardic cc6
[2024-12-22 19:14] VITALS: BP 148/76; TEMP 98.1; O2SAT 99
== END 2024-12-22 17:31 | disposition left against medical advice (07) ==
LOC: ER 14:43
DX: N39.0 Urinary tract infection, site not specified (principal); R65.21 Severe sepsis with septic shock
CPT/HCPCS: 93005; 87040 ×2; 85025; 81001; 80048; 36415; 83735; 85610; 84300; 80076; 83605; 85730; 84484; 83880; 80307; 83930; 83935; 71045; 96375; 96374; 99284; 82077; J2765; J3360; J7030; J0696

== ENCOUNTER 2024-12-24 06:50 | Emergency (ER) | payer MEDICAID ==
[2024-12-24] MEDS ORDERED: ONDANSETRON 4 MG/2 ML VIAL ONE (08:05)
[2024-12-24] MEDS ORDERED: NA CHLORIDE 0.9% 1,000 ML ONE (08:06)
[2024-12-24] MEDS ORDERED: FAMOTIDINE 20 MG/2 ML VIAL IV ONE (08:06)
[2024-12-24 08:07] LABS: Urine Microscopic Reflex YN NO UMIC
[2024-12-24 08:21] LABS: Absolute Lymphocytes (CBC) 2.3 K/uL (0.7-4.9); Hematocrit 35.5 % (36.0-45.0); Hemoglobin 11.8 g/dL (12.0-15.0); MCH 29.8 pg (27.0-35.0); MCHC 33.2 g/dL (32.0-36.0); MCV 89.9 fL (80-100); MPV 7.7 fL (7.6-11.3); Nucleated RBC Absolute Count 0.0 (0-0); Nucleated Red Blood Cells % 0.0 % (0-0); RBC Red Blood Cell Count 3.95 M/uL (3.86-4.86); White Blood Count 9.30 thou/uL (4.3-10.9)
[2024-12-24 08:28] LABS: PT Prothrombin Time 11.1 SECONDS (10-13.0); Protime INR 0.98
[2024-12-24 08:30] LABS: ALT/SGPT 25 U/L (13-56); AST/SGOT 12 U/L (15-37); Albumin 3.1 g/dL (3.4-5.0); Albumin/Globulin Ratio 0.8 (1.1-1.8); Alkaline Phosphatase 96 U/L (45-117); Anion Gap 8.9 mEq/L (5.0-15.0); BUN Blood Urea Nitrogen 14 mg/dL (7-18); Bilirubin Indirect, Calculated 0.0 mg/dL (0.2-0.8); Globulin 3.9 g/dL (2.3-3.5); Glucose Level 84 mg/dL (74-106); Lipase 41 U/L (13-75); Magnesium 1.5 mg/dL (1.6-2.4); NT PRO-BNP 173 pg/mL (<125); Potassium 3.9 mEq/L (3.5-5.1); Troponin High Sensitivity 19.5 pg/mL (<58.9)
--- NOTE | 2024-12-24 08:50 | RAD REPORT ---
EXAMINATION: ONE VIEW CHEST XR CLINICAL INDICATION: Cough;Abdominal distention TECHNIQUE: Frontal chest projection is submitted. Examination is limited by patient positioning and t echnique. COMPARISON: 12/22/2024 FINDINGS: The lungs are diffusely emphysematous but grossly clear. The heart is normal in size. No displaced fr actures identified. IMPRESSION: COPD without an acute process suspected.
--- NOTE | 2024-12-24 08:54 | ER ---
Nurse's Notes [facility] Name: Jaimie Amanda Age: 64 yrs Sex: Female : 1960 Arrival Date: 12/24/2024 Time: 06:50 Bed 6 Private MD: Diagnosis: Abdominal pain, Generalized;Hypomagnesemia Presentation: 12/24 07:16 Chief complaint: Patient states: abd pain vomiting X 4 days, has not vomited in a few iw hours. Coronavirus screen: At this time, the client does not indicate any symptoms associated with coronavirus-19. Ebola Screen: No symptoms or risks identified at this time. Initial Sepsis Screen: Does the patient meet any 2 criteria? No. Patient's initial sepsis screen is negative. Does the patient have a suspected source of infection? No. Patient's initial sepsis screen is negative. Risk Assessment: Do you want to hurt yourself or someone else? Patient reports no desire to harm self or others. Onset of symptoms was December 20, 2024. 07:16 Method Of Arrival: Ambulatory iw 07:16 Acuity: ZHEN 3 iw Historical: - Allergies: 07:21 hydrochlorothiazide; iw 07:21 Toradol; iw - PMHx: 07:17 Anxiety; Chronic Abdominal Pain; Hypertensive disorder; hyponatremia; Hypothyroidism; iw NIDDM; - Immunization history:: Adult Immunizations not up to date. - Infectious Disease History:: Denies. - Social history:: Smoking status: Patient reports the use of cigarette tobacco products, smokes one-half pack cigarettes per day. Screenin:25 Abuse screen: Denies threats or abuse. Nutritional screening: No deficits noted. ap3 Tuberculosis screening: No symptoms or risk factors identified. 08:26 [facility] ED Fall Risk Assessment (Adult) History of falling in the last 3 months, ap3 including since admission No falls in past 3 months (0 pts) Confusion or Disorientation No (0 pts) Intoxicated or Sedated No (0 pts) Impaired Gait No (0 pts) Mobility Assist Device Used No (0 pt) Altered Elimination Score/Fall Risk Level 0 - 2 = Low Risk Oriented to surroundings, Maintained a safe environment, Educated pt \\T\\ family on fall prevention, incl call for assistance when getting out of bed, Assessed \\T\\ reinforced patient's understanding of fall precautions, Hourly rounding (assess needs \\T\\ fall precautionary measures) done, Used ambulatory aids as needed (educated on \\T\\ assisted with). Assessment: 07:25 General: patient ambulated to restroom without assistance. ap3 08:24 General: Appears in no apparent distress. Behavior is calm, cooperative. Pain: ap3 Complains of pain in suprapubic area. Neuro: Level of Consciousness is awake, alert, obeys commands, Oriented to person, place, time, situation, Appropriate for age Gait is steady, Speech is normal. Cardiovascular: Patient's skin is warm and dry. Respiratory: Airway is patent Respiratory effort is even, unlabored, Respiratory pattern is regular, symmetrical. GI: Abdomen is non-distended, Bowel sounds present X 4 quads. Abd is soft and non tender Reports lower abdominal pain, nausea, vomiting. 08:44 Reassessment: Patient is alert, oriented x 3, equal unlabored respirations, skin aa5 warm/dry/pink. Pt states states "I want to leave now, I just need to go home", was notified. MD states he will d/c pt home, pt reported she does not want to wait on d/c paperwork. Pt ambulatory out of ER, accompanied by mother. . Vital Signs: 07:17 BP 179 / 70; Pulse 95; Resp 16; Pulse Ox 100% on R/A; Weight 58.97 kg; Height 5 ft. 8 iw in. ; Pain 9/10; 07:23 BP 163 / 84; Pulse 94; Pulse Ox 100% on R/A; ap3 08:24 BP 141 / 77; Pulse 84; Resp 18; Pulse Ox 100% on R/A; ap3 07:17 Body Mass Index 19.77 (58.97 kg, 172.72 cm) iw 07:17 Pain Scale: Adult iw ED Course: 06:54 Patient arrived in ED. gm2 07:10 Diego Ramirez MD is Attending Physician. hannah 07:13 Ashlee Teague, CATY is Primary Nurse. kb4 07:17 Triage completed. iw 07:18 Arm band placed on. iw 07:25 Patient has correct armband on for positive identification. Bed in low position. Call ap3 light in reach. Side rails up X 1. Adult w/ patient. 07:28 XRAY Chest (1 view) In Process Unspecified. EDMS 07:32 EKG done, by ED staff, reviewed by Diego Ramirez MD. ap3 07:50 Inserted saline lock: 22 gauge in right antecubital area, using aseptic technique. ap3 Blood collected. Flushed with 10 mL NS. 07:56 Lipase Sent. ap3 07:56 UA Rfx Zach Cult if indicated Sent. ap3 07:56 Basic Metabolic Panel Sent. ap3 07:56 CBC with Diff Sent. ap3 07:56 LFT's Sent. ap3 07:56 Magnesium Sent. ap3 07:56 PT-INR Sent. ap3 07:56 NT PRO-BNP Sent. ap3 07:56 Troponin HS Sent. ap3 08:25 Provided Education on: medications prior to administration . Client placed on ap3 continuous cardiac and pulse oximetry monitoring. NIBP monitoring applied. monitor tech on. Pulse ox on. NIBP on. 08:26 Primary Nurse role handed off by Ashlee Teague, RN ap3 08:26 Elisa Gutierrez, RN is Primary Nurse. ap3 08:44 No provider procedures requiring assistance completed. IV discontinued, intact, aa5 bleeding controlled, No redness/swelling at site. Pressure dressing applied. Administered Medications: 08:15 Drug: NS 0.9% IV 1000 ml IV at 1000 ml once; to be given as a bolus over 60 minutes ap3 Route: IV; Rate: 1000 ml; Site: right antecubital; 08:44 Follow up: IV Status: Order to discontinue infusion; IV Intake: 700ml aa5 08:15 Drug: Famotidine IVP 20 mg IVP once; dilute with 10 mL 0.9% NaCl; give over 2 minutes ap3 Route: IVP; Site: right antecubital; 08:20 Follow up: Response: No adverse reaction; Marked relief of symptoms aa5 08:15 Drug: Ondansetron IVP 8 mg IVP once; over 2 minutes Route: IVP; Site: right antecubital;ap3 08:20 Follow up: Response: No adverse reaction aa5 08:58 Not Given (Patient Refused): magnesium sulfate1 grams IVPB once over 1 hrs ap3 Medication: 08:26 VIS not applicable for this client. ap3 Intake: 08:44 IV: 700ml; Total: 700ml. aa5 Outcome: 08:54 Discharge ordered by . hannah 08:58 Discharged to home ambulatory, with family, ap3 08:58 Condition: good 08:58 Discharge instructions given to patient, Instructed on discharge instructions, follow up and referral plans. Demonstrated understanding of instructions, follow-up care, 08:58 Patient left the ED. ap3 Signatures: Dispatcher [employer] EDDiego Angela MD MD cha Williams, Irene, CATY BYRNE iw Bhavna Corado RN RN aa5 Elisa Gutierrez RN RN ap3 Marcia Warren 2 Ashlee Teague RN RN kb4 Corrections: (The following items were deleted from the chart) 08:46 08:45 Reassessment: Patient is alert, oriented x 3, equal unlabored respirations, skin aa5 warm/dry/pink. Pt states states "I want to leave now, I just need to go home", was notified. states he will d/c pt home, pt reported she does not want to wait on d/c paperwork. Pt ambulatory out of ER, accompanied by mother. . aa5
--- NOTE | 2024-12-24 08:54 | EDPHYS ---
Physician Documentation [facility] Name: Jaimie Amanda Age: 64 yrs Sex: Female : 1960 Arrival Date: 12/24/2024 Time: 06:50 Bed 6 Private MD: ED Physician Diego Ramirez HPI: 12/24 08:49 This 64 yrs old Female presents to ER via Ambulatory with complaints of hannah Abdominal Pain, Nausea/Vomiting. 08:49 The patient presents to the emergency department with nausea, vomiting, diarrhea, that hannah is intermittent, abdominal pain. Onset: The symptoms/episode began/occurred 2 day(s) ago. Possible causes: unknown. The symptoms are aggravated by nothing. The symptoms are alleviated by nothing. Associated signs and symptoms: The patient has no apparent associated signs or symptoms. Severity of symptoms: At their worst the symptoms were moderate in the emergency department the symptoms are unchanged. The patient has not experienced similar symptoms in the past. Historical: - Allergies: 07:21 hydrochlorothiazide; iw 07:21 Toradol; iw - PMHx: 07:17 Anxiety; Chronic Abdominal Pain; Hypertensive disorder; hyponatremia; Hypothyroidism; iw NIDDM; - Immunization history:: Adult Immunizations not up to date. - Infectious Disease History:: Denies. - Social history:: Smoking status: Patient reports the use of cigarette tobacco products, smokes one-half pack cigarettes per day. ROS: 08:49 Constitutional: Negative for fever, chills, and weight loss, Eyes: Negative for injury, hannah pain, redness, and discharge, ENT: Negative for injury, pain, and discharge, Neck: Negative for injury, pain, and swelling, Cardiovascular: Negative for chest pain, palpitations, and edema, Respiratory: Negative for shortness of breath, cough, wheezing, and pleuritic chest pain, Back: Negative for injury and pain, : Negative for injury, bleeding, discharge, and swelling, MS/Extremity: Negative for injury and deformity, Skin: Negative for injury, rash, and discoloration, Neuro: Negative for headache, weakness, numbness, tingling, and seizure, Psych: Negative for depression, anxiety, suicide ideation, homicidal ideation, and hallucinations, Allergy/Immunology: Negative for hives, rash, and allergies, Endocrine: Negative for neck swelling, polydipsia, polyuria, polyphagia, and marked weight changes, Hematologic/Lymphatic: Negative for swollen nodes, abnormal bleeding, and unusual bruising, 08:49 Abdomen/GI: Positive for abdominal pain, nausea and vomiting, Exam: 08:49 Constitutional: This is a well developed, well nourished patient who is awake, alert, hannah and in no acute distress. Head/Face: Normocephalic, atraumatic. Eyes: Pupils equal round and reactive to light, extra-ocular motions intact. Lids and lashes normal. Conjunctiva and sclera are non-icteric and not injected. Cornea within normal limits. Periorbital areas with no swelling, redness, or edema. ENT: Nares patent. No nasal discharge, no septal abnormalities noted. Tympanic membranes are normal and external auditory canals are clear. Oropharynx with no redness, swelling, or masses, exudates, or evidence of obstruction, uvula midline. Mucous membranes moist. Neck: Trachea midline, no thyromegaly or masses palpated, and no cervical lymphadenopathy. Supple, full range of motion without nuchal rigidity, or vertebral point tenderness. No Meningismus. Chest/axilla: Normal chest wall appearance and motion. Nontender with no deformity. No lesions are appreciated. Cardiovascular: Regular rate and rhythm with a normal S1 and S2. No gallops, murmurs, or rubs. Normal PMI, no JVD. No pulse deficits. Respiratory: Lungs have equal breath sounds bilaterally, clear to auscultation and percussion. No rales, rhonchi or wheezes noted. No increased work of breathing, no retractions or nasal flaring. Back: No spinal tenderness. No costovertebral tenderness. Full range of motion. Female : Normal external genitalia. Skin: Warm, dry with normal turgor. Normal color with no rashes, no lesions, and no evidence of cellulitis. MS/ Extremity: Pulses equal, no cyanosis. Neurovascular intact. Full, normal range of motion., bilateral aka Neuro: Awake and alert, GCS 15, oriented to person, place, time, and situation. Cranial nerves II-XII grossly intact. Motor strength 5/5 in all extremities. Sensory grossly intact. Cerebellar exam normal. Normal gait. Psych: Awake, alert, with orientation to person, place and time. Behavior, mood, and affect are within normal limits. 08:49 Abdomen/GI: Inspection: abdomen appears normal, Bowel sounds: normal, Palpation: abdomen is soft and non-tender, Liver: no appreciated palpable abnormalities, Hernia: not appreciated, 09:07 ECG was reviewed by the Attending Physician. [facility] Vital Signs: 07:17 BP 179 / 70; Pulse 95; Resp 16; Pulse Ox 100% on R/A; Weight 58.97 kg; Height 5 ft. 8 iw in. ; Pain 9/10; 07:23 BP 163 / 84; Pulse 94; Pulse Ox 100% on R/A; ap3 08:24 BP 141 / 77; Pulse 84; Resp 18; Pulse Ox 100% on R/A; ap3 07:17 Body Mass Index 19.77 (58.97 kg, 172.72 cm) iw 07:17 Pain Scale: Adult iw MDM: 07:10 Medical Screening Exam initiated hannah 08:51 Differential diagnosis: Nonspecific abd pain, gastritis, cholecystitis, pancreatitis, hannah appendicitis, diverticulitis, viral gastroenteritis, gastroenteritis, AAA, acute coronary syndrome, appendicitis, bowel obstruction, coronary artery disease, cholecystitis. Data reviewed: vital signs, nurses notes, lab test result(s), EKG, radiologic studies, plain films. Consideration of Admission/Observation Escalation of care including admission/observation considered. 12/24 07:14 Order name: Basic Metabolic Panel; Complete Time: 08:48 [facility] 12/24 07:14 Order name: CBC with Diff; Complete Time: 08:48 [facility] 12/24 07:14 Order name: LFT's; Complete Time: 08:48 [facility] 12/24 07:14 Order name: Magnesium; Complete Time: 08:48 [facility] 12/24 07:14 Order name: NT PRO-BNP; Complete Time: 08:48 [facility] 12/24 07:14 Order name: PT-INR; Complete Time: 08:48 [facility] 12/24 07:14 Order name: Troponin HS; Complete Time: 08:48 [facility] 12/24 07:14 Order name: UA Rfx Zach Cult if indicated; Complete Time: 08:48 [facility] 12/24 07:14 Order name: Lipase; Complete Time: 08:48 [facility] 12/24 07:14 Order name: XRAY Chest (1 view) [facility] 12/24 07:14 Order name: Cardiac monitoring; Complete Time: 07:55 [facility] 12/24 07:14 Order name: EKG - Nurse/Tech; Complete Time: 07:33 [facility] 12/24 07:14 Order name: IV Saline Lock; Complete Time: 07:55 [facility] 12/24 07:14 Order name: Labs collected and sent; Complete Time: 07:55 [facility] 12/24 07:14 Order name: O2 Per Protocol; Complete Time: 07:18 [facility] 12/24 07:14 Order name: O2 Sat Monitoring; Complete Time: :18 [facility] EC:07 Rate is 92 beats/min. Rhythm is regular. QRS Anderson is Normal. OR interval is normal. QRS hannah interval is normal. QT interval is normal. No Q waves. T waves are Normal. No ST changes noted. Clinical impression: Normal ECG and No evidence of ischemia. Interpreted by me. Reviewed by me. Administered Medications: 08:15 Drug: NS 0.9% IV 1000 ml IV at 1000 ml once; to be given as a bolus over 60 minutes ap3 Route: IV; Rate: 1000 ml; Site: right antecubital; 08:44 Follow up: IV Status: Order to discontinue infusion; IV Intake: 700ml aa5 08:15 Drug: Famotidine IVP 20 mg IVP once; dilute with 10 mL 0.9% NaCl; give over 2 minutes ap3 Route: IVP; Site: right antecubital; 08:20 Follow up: Response: No adverse reaction; Marked relief of symptoms aa5 08:15 Drug: Ondansetron IVP 8 mg IVP once; over 2 minutes Route: IVP; Site: right antecubital;ap3 08:20 Follow up: Response: No adverse reaction aa5 08:58 Not Given (Patient Refused): magnesium sulfate1 grams IVPB once over 1 hrs ap3 Disposition Summary: 12/24/24 08:54 Discharge Ordered Notes: Location: Home hannah Problem: new hannah Symptoms: have improved hannah Condition: Stable hannah Diagnosis - Abdominal pain, Generalized hannah - Hypomagnesemia hannah Followup: hannah - With: Private Physician - When: 2 - 3 days - Reason: Recheck today's complaints, Continuance of care, Re-evaluation by your physician Discharge Instructions: - Discharge Summary Sheet hannah - Abdominal Pain, Adult hannah - Hypomagnesemia hannah - Abdominal Pain, Adult, [id number] hannah Forms: - Medication Reconciliation Form hannah - Antibiotic Education hannah - Prescription Opioid Use hannah - Patient Portal Instructions hannah - Leadership Thank You Letter hannah Signatures: Dispatcher [employer] EDMS Diego Ramirez MD MD cha Williams, Irene, RN Elisa Acuna RN RN ap3 Bhavna Corado RN aa5 Corrections: (The following items were deleted from the chart) 07:14 07:14 BASIC METABOLIC PANEL+C.LAB.BRZ ordered. EDMS EDMS 07:14 07:14 CBC+H.LAB.BRZ ordered. EDMS EDMS 07:14 07:14 HEPATIC FUNCTION+C.LAB.BRZ ordered. EDMS EDMS 07:14 07:14 MAGNESIUM+C.LAB.BRZ ordered. EDMS EDMS 07:14 07:14 PROBNP+C.LAB.BRZ ordered. EDMS EDMS 07:14 07:14 PROTIME (+INR)+COAG.LAB.BRZ ordered. EDMS EDMS 07:14 07:14 Troponin High Sensitivity+C.LAB.BRZ ordered. EDMS EDMS 07:14 07:14 UA Rfx Zach Cult if indicated+U.LAB.BRZ ordered. EDMS EDMS 07:14 07:14 LIPASE+C.LAB.BRZ ordered. EDMS EDMS 07:14 07:14 Chest Single View+RAD.RAD.BRZ ordered. EDMS EDMS 07:14 07:14 Abdomen Pelvis W Con+CT.RAD.BRZ ordered. EDMS EDMS
[2024-12-24 15:18] VITALS: O2SAT 100
[2024-12-24 15:20] VITALS: BP 141/77
== END 2024-12-24 08:58 | disposition home or self-care (01) ==
LOC: ER 06:50
DX: R10.84 Generalized abdominal pain (principal); E83.42 Hypomagnesemia; R11.2 Nausea with vomiting, unspecified; F17.210 Nicotine dependence, cigarettes, uncomplicated
CPT/HCPCS: 93005; 85025; 80048; 36415; 83735; 85610; 80076; 81003; 84484; 83690; 83880; 71045; 96375; 96374; 99285; J2405; J7030

== ENCOUNTER 2024-12-30 09:41 | Emergency (ER) | payer MEDICAID ==
[2024-12-30] MEDS ORDERED: ONDANSETRON 4 MG/2 ML VIAL ONE (10:08)
[2024-12-30] MEDS ORDERED: NA CHLORIDE 0.9% 0 ML ONE (10:08)
--- NOTE | 2024-12-30 10:37 | RAD REPORT ---
EXAM: CT brain without contrast HISTORY: TRAUMA COMPARISON: None TECHNIQUE: Multiple contiguous axial images were obtained and a CT of the brain without contrast. Sag ittal and coronal reformats were performed. One or more of the following dose reduction techniques were used: Automated exposure control, adjust ment of the mA and/or kV according to patient size, and/or iterative reconstruction. FINDINGS: No evidence of hydrocephalus, intracranial hemorrhage, or extra-axial fluid collection. Moderate brain atrophy. No evidence of midline shift or areas of brain edema. The calvarium is intact. The visualized paranasal sinuses and mastoid air cells are essentially clear . IMPRESSION: No evidence of acute intracranial abnormality.
--- NOTE | 2024-12-30 10:42 | RAD REPORT ---
EXAM: CT CHEST, ABDOMEN AND PELVIS WITHOUT CONTRAST CLINICAL INDICATION: Falls;Trauma TECHNIQUE: CT chest, abdomen and pelvis was performed without contrast, as per department protocol. A xial, sagittal and coronal reconstructions were obtained. One or more of the following dose reduction techniques were used: Automated exposure control, adjustment of the mA and/or kV according to patient size, and/or iterative reconstruction. Unless otherwise specified, incidental findings do not require dedicated imaging follow-up. Examination is limited by the lack of intravenous contrast material. COMPARISON: 12/05/2024 FINDINGS: LUNGS: No evidence of airspace or interstitial process. No nodules. PLEURA: No pleural effusion. No pneumothorax. MEDIASTINUM AND LYMPH NODES: No mediastinal mass or fluid collection. Normal size mediastinal, hilar, and axillary lymph nodes. OSSEOUS STRUCTURES AND CHEST WALL: Intact. LIVER: Normal in size and contour. No focal lesion or biliary dilatation. Grossly unremarkable gallbl adder. PANCREAS: No mass, ductal dilation, or denisa-pancreatic fluid. SPLEEN: Normal size. No focal lesion. ADRENALS: Normal; no mass. KIDNEYS: Normal size and contour. No hydronephrosis. URINARY BLADDER: Normal contour. GASTROINTESTINAL TRACT: No bowel obstruction, free air, significant free fluid or abscess. Prominen t stomach distention with food stuff. APPENDIX: Normal appendix. LYMPH NODES: No lymphadenopathy. MUSCULOSKELETAL: No acute or suspicious osseous abnormality. IMPRESSION: No acute abnormalities seen in the chest, abdomen or pelvis.
--- NOTE | 2024-12-30 10:43 | EDPHYS ---
Physician Documentation [facility] Name: Jaimie Amanda Age: 64 yrs Sex: Female : 1960 Arrival Date: 12/30/2024 Time: 09:41 Bed 16 Private MD: ED Physician Zo Zapata HPI: 12/30 09:56 This 64 yrs old Female presents to ER via EMS with complaints of Back Pain. dr5 09:56 The patient presents with pain that is acute, and an injury, and tenderness. The dr5 symptoms are located in the right mid back and right low back. Onset: The symptoms/episode began/occurred acutely. Patient is a 64-year-old female with history anxiety, chronic abdominal pain, hypertension, hyponatremia, hypothyroidism, diabetes coming in with 3 falls from slip. Patient reports pain to lower back right. Patient denies any alcohol use recently. Patient reports she lives at home with her mother.. Historical: - Allergies: 09:51 hydrochlorothiazide; ss 09:51 Toradol; ss - PMHx: 09:51 Anxiety; Chronic Abdominal Pain; Hypertensive disorder; hyponatremia; Hypothyroidism; ss NIDDM; - Immunization history:: Adult Immunizations not up to date. - Infectious Disease History:: Denies. - Social history:: Smoking status: Patient reports the use of cigarette tobacco products, smokes one-half pack cigarettes per day. ROS: 09:56 Constitutional: as per hpi dr5 Exam: 09:56 Constitutional: This is a well developed, well nourished patient who is awake, alert, dr5 and in no acute distress. Head/Face: Normocephalic, atraumatic. Eyes: Pupils equal round and reactive to light, extra-ocular motions intact. Lids and lashes normal. Conjunctiva and sclera are non-icteric and not injected. Cornea within normal limits. Periorbital areas with no swelling, redness, or edema. Neck: Trachea midline, no thyromegaly or masses palpated, and no cervical lymphadenopathy. Supple, full range of motion without nuchal rigidity, or vertebral point tenderness. No Meningismus. Chest/axilla: Normal chest wall appearance and motion. Nontender with no deformity. No lesions are appreciated. Cardiovascular: Regular rate and rhythm with a normal S1 and S2. Normal PMI, no JVD. No pulse deficits. Respiratory: Lungs have equal breath sounds bilaterally, clear to auscultation. No rales, rhonchi or wheezes noted. No increased work of breathing, no retractions or nasal flaring. Abdomen/GI: Soft, non-tender, non-distended Back: No spinal tenderness. No costovertebral tenderness. Full range of motion. Skin: Warm, dry with normal turgor. Normal color with no rashes, no lesions, and no evidence of cellulitis. Neuro: Awake and alert, GCS 15, oriented to person, place, time, and situation. Cranial nerves II-XII grossly intact. Motor strength 5/5 in all extremities. Sensory grossly intact. Cerebellar exam normal. Normal gait. 09:56 Musculoskeletal/extremity: Extremities: grossly normal except: noted in the right mid back and right low back: tenderness, ROM: no acute changes, intact in all extremities, Circulation is intact in all extremities. Sensation intact. Vital Signs: 09:53 BP 109 / 70; Pulse 91; Resp 16; Pulse Ox 95% on R/A; ss 09:56 Weight 58.97 kg; Height 5 ft. 7 in. ; Pain 10/10; ss 10:44 BP 152 / 65; Pulse 88; Resp 18; Pulse Ox 95% on R/A; Pain 7/10; ar8 09:56 Body Mass Index 20.36 (58.97 kg, 170.18 cm) ss 09:56 Pain Scale: Adult ss 10:44 Pain Scale: Adult ar8 MDM: 09:47 Medical Screening Exam initiated dr5 10:54 Differential diagnosis: Fracture Osteoarthritis sprain, vertebral fracture. Data dr5 reviewed: vital signs, nurses notes, radiologic studies, CT scan. Consideration of Admission/Observation Escalation of care including admission/observation considered. Escalation considered patient found to have intracranial hemorrhage. I considered the following discharge prescriptions or medication management in the emergency department I discussed and recommended Over The Counter medications, Medications were administered in the Emergency Department. See MAR. Independent interpretation of the following test(s) in the Emergency Department CT Scan: My interpretation is Independent interpretation of CT does not reveal intracranial hemorrhage. Test considered but Not performed: Labs: Labs considered but patient declined. Care significantly affected by the following chronic conditions: Anxiety, chronic abdominal pain, hypertension, hyponatremia, hypothyroidism. Care significantly affected by the following Social Determinants of Health: Poor access to healthcare and/or lack of insurance, Poor access to transportation, Problems related to employment. Counseling: I had a detailed discussion with the patient and/or guardian regarding the historical points, exam findings, and any diagnostic results supporting the discharge/admit diagnosis, the presence of at least one elevated blood pressure reading (>120/80) during this emergency department visit, radiology results, the need for outpatient follow up, for definitive care, a family practitioner, to return to the emergency department if symptoms worsen or persist or if there are any questions or concerns that arise at home. Special discussion: I discussed with the patient/guardian in detail that at this point there is no indication for admission to the hospital. It is understood, however, that if the symptoms persist or worsen the patient needs to return immediately for re-evaluation. Based on the history and exam findings, there is no indication for further emergent testing or inpatient evaluation. I discussed with the patient/guardian the need to see the orthopedic surgeon for further evaluation of the symptoms. I discussed with the patient/guardian the need to see the primary care provider for further evaluation of the symptoms. ED course: Patient reports he is feeling much better and does not want a wait for lab work. CT reviewed and no abnormality noted on CT of head, neck, chest, abdomen, or pelvis. Patient has steady gait with ambulation. Recommended patient follow-up with primary care doctor as needed. All question answered.. 12/30 09:56 Order name: CT Head Brain wo Cont; Complete Time: 10:38 dr5 12/30 09:56 Order name: CT Chest Abdomen Pelvis W/O Contrast; Complete Time: 10:43 dr5 Administered Medications: 10:41 Not Given (Patient Refused): ns 0.9% 1000 ml IV at 1000 ml once; to be given as a bolus ar8 over 60 minutes 10:41 Not Given (Patient Refused): ondansetron 4 mg IVP once; over 2 minutes ar8 Disposition Summary: 12/30/24 10:43 Discharge Ordered Notes: Location: Home dr5 Condition: Stable dr5 Diagnosis - Low back pain dr5 Followup: dr5 - With: Emergency Department - When: As needed - Reason: Worsening of condition Followup: dr5 - With: Private Physician - When: 1 - 2 days - Reason: Recheck today's complaints, Continuance of care, Re-evaluation by your physician Discharge Instructions: - Discharge Summary Sheet dr5 - Acute Back Pain, Adult dr5 Forms: - Medication Reconciliation Form dr5 - Patient Portal Instructions dr5 - Leadership Thank You Letter dr5 Signatures: Dispatcher [employer] EDMS Bel Gutierrez, RN RN Jem Marrero, CELL BIOLOGIST-C CELL BIOLOGIST-Cdr5 Oskar Skinner RN RN ar8 Corrections: (The following items were deleted from the chart) 09:57 09:57 Head Brain Wo Cont+CT.RAD.BRZ ordered. EDMS EDMS 09:57 09:57 Chest Abdomen Pelvis Wo Con+CT.RAD.BRZ ordered. EDMS EDMS 09:57 09:57 CBC+H.LAB.BRZ ordered. EDMS EDMS 09:57 09:57 COMPREHENSIVE METABOLIC PANEL+C.LAB.BRZ ordered. EDMS EDMS
--- NOTE | 2024-12-30 10:43 | ER ---
Nurse's Notes [facility] Name: Jaimie Amanda Age: 64 yrs Sex: Female : 1960 Arrival Date: 12/30/2024 Time: 09:41 Bed 16 Private MD: Diagnosis: Low back pain Presentation: 12/30 09:47 Chief complaint: Patient states: back pain after falling 3 times in the last 3 days. ss Coronavirus screen: Client denies travel out of the [place] in the last 14 days. Ebola Screen: Patient denies exposure to infectious person. Patient denies travel to an Ebola-affected area in the 21 days before illness onset. Initial Sepsis Screen: Does the patient meet any 2 criteria? No. Patient's initial sepsis screen is negative. Does the patient have a suspected source of infection? No. Patient's initial sepsis screen is negative. Risk Assessment: Do you want to hurt yourself or someone else? Patient reports no desire to harm self or others. Onset of symptoms is unknown. 09:47 Method Of Arrival: EMS: [facility] 09:47 Acuity: ZHEN 3 ss Historical: - Allergies: 09:51 hydrochlorothiazide; ss 09:51 Toradol; ss - PMHx: 09:51 Anxiety; Chronic Abdominal Pain; Hypertensive disorder; hyponatremia; Hypothyroidism; ss NIDDM; - Immunization history:: Adult Immunizations not up to date. - Infectious Disease History:: Denies. - Social history:: Smoking status: Patient reports the use of cigarette tobacco products, smokes one-half pack cigarettes per day. Screenin:44 [facility] ED Fall Risk Assessment (Adult) History of falling in the last 3 months, ar8 including since admission Yes- fall prone (multiple falls) (3 pts) Confusion or Disorientation No (0 pts) Intoxicated or Sedated No (0 pts) Impaired Gait No (0 pts) Mobility Assist Device Used No (0 pt) Altered Elimination No (0 pt) Score/Fall Risk Level 3 or more points = High Risk Oriented to surroundings, Maintained a safe environment. Abuse screen: Denies threats or abuse. Nutritional screening: No deficits noted. Tuberculosis screening: No symptoms or risk factors identified. Assessment: 10:35 General: Appears in no apparent distress. Behavior is calm, cooperative. Pain: ar8 Complains of pain in right mid back and right low back. Neuro: Level of Consciousness is awake, alert, obeys commands, Oriented to person, place, time, situation. Cardiovascular: Patient's skin is warm and dry. Respiratory: Airway is patent Respiratory effort is even, unlabored, Respiratory pattern is regular, symmetrical. 10:35 GI: No signs and/or symptoms were reported involving the gastrointestinal system. ar8 Musculoskeletal: Reports pain in back. 10:46 Reassessment: Patient refused IV and blood draw. States that she feels better and wants ar8 to go home. ERP notified and he spoke with patient. Vital Signs: 09:53 BP 109 / 70; Pulse 91; Resp 16; Pulse Ox 95% on R/A; ss 09:56 Weight 58.97 kg; Height 5 ft. 7 in. ; Pain 10/10; ss 10:44 BP 152 / 65; Pulse 88; Resp 18; Pulse Ox 95% on R/A; Pain 7/10; ar8 09:56 Body Mass Index 20.36 (58.97 kg, 170.18 cm) ss 09:56 Pain Scale: Adult ss 10:44 Pain Scale: Adult ar8 ED Course: 09:47 Patient arrived in ED. ss 09:47 [facility]C [facility] 09:47 Zo Zapata MD is Attending Physician. dr5 09:51 Triage completed. ss 09:53 Arm band placed on left ankle. ss 10:[address] via stretcher. ar8 10:13 CT Head Brain wo Cont In Process Unspecified. EDMS 10:14 CT Chest Abdomen Pelvis W/O Contrast In Process Unspecified. EDMS 10:15 Oskar Skinner, RN is Primary Nurse. ar8 10:16 Patient moved back from CT. ar8 10:35 Bed in low position. Call light in reach. Side rails up X2. Provided Education on: plan ar8 of care. 10:35 Pulse ox on. NIBP on. ar8 10:35 No provider procedures requiring assistance completed. Patient did not have IV access ar8 during this emergency room visit. Administered Medications: 10:41 Not Given (Patient Refused): ns 0.9% 1000 ml IV at 1000 ml once; to be given as a bolus ar8 over 60 minutes 10:41 Not Given (Patient Refused): ondansetron 4 mg IVP once; over 2 minutes ar8 Medication: 10:44 VIS not applicable for this client. ar8 Outcome: 10:43 Discharge ordered by . dr5 10:50 Discharged to home ambulatory, ar8 10:50 Condition: stable 10:50 Discharge instructions given to patient, Instructed on discharge instructions, follow up and referral plans. Demonstrated understanding of instructions, follow-up care, 10:50 Patient left the ED. ar8 Signatures: Dispatcher [employer] EDBel Farrell, RN RN Jem Marrero, POT FEEDER-C POT FEEDER-[facility]5 Oskar Skinner RN RN ar8
[2024-12-30 11:58] VITALS: O2SAT 95
[2024-12-30 11:59] VITALS: BP 152/65
== END 2024-12-30 10:50 | disposition home or self-care (01) ==
LOC: ER 09:41
DX: M54.50 Low back pain, unspecified (principal)
CPT/HCPCS: 70450; 71250; 74176; 99284; J2405; J7030

== ENCOUNTER 2025-01-01 11:03 | Emergency (ER) | payer MEDICAID ==
[2025-01-01 11:49] LABS: Sqamous Epithelial 20-50 /HPF (None Seen); Urine Crystals Unidentified Few /HPF (None Seen); Urine Culture Reflex Order NOT NEEDED; Urine Microscopic Reflex YN ORDER UMIC; Urine Yeast (Budding) Trace /HPF (None Seen)
[2025-01-01] MEDS ORDERED: ONDANSETRON 4 MG (ODT) TAB ONE (12:15)
--- NOTE | 2025-01-01 12:42 | RAD REPORT ---
Stone Protocol CLINICAL INDICATION: Female, 64 years old.back pain, hematuria TECHNIQUE: CT abdomen and pelvis was performed, without IV contrast, as per department protocol using a CT stone protocol. Axial, sagittal and coronal reconstructions were obtained. One or more of the following dose reduction techniques were used: Automated exposure control, adjustment of the mA and/o r kV according to the patient size, and/or iterative reconstruction. Unless otherwise specified, incidental findings do not require dedicated imaging follow-up. HF0025. IV CONTRAST: Not administered. COMPARISON: 11/04/2024 FINDINGS: The lack of intravenous contrast limits the sensitivity of this exam for evaluation of solid visceral organs, vascular structures, and retroperitoneum. LOWER CHEST: No acute process identified. Mild cardiomegaly. Small hiatal hernia. Small pericardial e ffusion. UPPER GI: No significant abnormality. LIVER: No significant focal abnormality. GALLBLADDER/BILE DUCTS: No biliary ductal dilatation.? PANCREAS: No mass, ductal dilation, or denisa-pancreatic fluid. SPLEEN: Unremarkable. ADRENALS: No adrenal masses. KIDNEYS AND URETERS: No hydronephrosis. Limited evaluation for renal lesions in the absence of IV con trast. No renal calculi. No ureteral calculi. ABDOMINAL AORTA AND OTHER VESSELS: Normal caliber aorta and IVC. PERITONEUM: No abnormal free fluid. No free air. LYMPH NODES: No pathologic lymphadenopathy. ABDOMINAL WALL: Unremarkable SMALL BOWEL/COLON: Small bowel has normal course and caliber. No colonic wall thickening or pericolon ic inflammatory changes. Normal appendix. URINARY BLADDER: Underdistended but grossly unremarkable. REPRODUCTIVE ORGANS: No pathologic process. MUSCULOSKELETAL: Moderate disc height loss L5-S1. ADDITIONAL FINDINGS: None. IMPRESSION: No acute findings within the abdomen or pelvis. No urinary tract calculi.
--- NOTE | 2025-01-01 12:47 | ER ---
Nurse's Notes [facility] Name: Jaimie Amanda Age: 64 yrs Sex: Female : 1960 Arrival Date: 01/01/2025 Time: 11:03 Bed 20 Private MD: Diagnosis: Dysuria;UTI/ Urinary tract infection, site not specified Presentation: 01/01 11:09 Chief complaint: Patient states: Back pain since 2 AM. Coronavirus screen: Client ll1 denies travel out of the [place] in the last 14 days. At this time, the client does not indicate any symptoms associated with coronavirus-19. Ebola Screen: Patient denies travel to an Ebola-affected area in the 21 days before illness onset. Initial Sepsis Screen: Does the patient meet any 2 criteria? No. Patient's initial sepsis screen is negative. Does the patient have a suspected source of infection? No. Patient's initial sepsis screen is negative. Risk Assessment: Do you want to hurt yourself or someone else? Patient reports no desire to harm self or others. Onset of symptoms was January 01, 2025. 11:09 Method Of Arrival: Ambulatory ll1 11:09 Acuity: ZHEN 3 ll1 Historical: - Allergies: 11:09 hydrochlorothiazide; ll1 11:09 Toradol; ll1 - PMHx: 11:09 Anxiety; Chronic Abdominal Pain; Hypertensive disorder; hyponatremia; Hypothyroidism; ll1 NIDDM; - Immunization history:: Adult Immunizations up to date. - Social history:: Smoking status: Patient reports the use of cigarette tobacco products, smokes one-half pack cigarettes per day. - Family history:: not pertinent. - Hospitalizations: : No recent hospitalization is reported. Screenin:22 [facility] ED Fall Risk Assessment (Adult) History of falling in the last 3 months, cc6 including since admission No falls in past 3 months (0 pts) Confusion or Disorientation No (0 pts) Intoxicated or Sedated No (0 pts) Impaired Gait No (0 pts) Mobility Assist Device Used No (0 pt) Altered Elimination No (0 pt) Score/Fall Risk Level 0 - 2 = Low Risk Oriented to surroundings, Maintained a safe environment, Educated pt \T\ family on fall prevention, incl call for assistance when getting out of bed, Hourly rounding (assess needs \T\ fall precautionary measures) done. Abuse screen: Denies threats or abuse. Denies injuries from another. Nutritional screening: No deficits noted. Tuberculosis screening: No symptoms or risk factors identified. Assessment: 11:20 General: Appears in no apparent distress. uncomfortable, Behavior is calm, cooperative, cc6 appropriate for age. Pain: Complains of pain in left low back and right low back Pain does not radiate. Pain currently is 5 out of 10 on a pain scale. Quality of pain is described as sharp. Neuro: Level of Consciousness is awake, alert, obeys commands, Oriented to person, place, time, situation, Appropriate for age. Cardiovascular: Capillary refill < 3 seconds Patient's skin is warm and dry. Respiratory: Airway is patent Respiratory effort is even, unlabored, Respiratory pattern is regular, symmetrical. GI: No signs and/or symptoms were reported involving the gastrointestinal system. : Reports burning with urination, since 0200. EENT: No signs and/or symptoms were reported regarding the EENT system. Derm: No signs and/or symptoms reported regarding the dermatologic system. Musculoskeletal: No signs and/or symptoms reported regarding the musculoskeletal system. Vital Signs: 11:09 BP 153 / 72; Pulse 105; Resp 18; Temp 97.7; Pulse Ox 99% ; Weight 61.23 kg; Height 5 ll1 ft. 8 in. ; Pain 9/10; 11:09 Body Mass Index 20.53 (61.23 kg, 172.72 cm) ll1 11:09 Pain Scale: Adult ll1 ED Course: 11:05 Patient arrived in ED. im 11:09 Villa Byrd MD is Attending Physician. rn 11:10 Triage completed. ll1 11:12 Arm band placed on Patient placed in an exam room, on a stretcher. ss 11:17 Yaquelin Jaffe, CATY is Primary Nurse. cc6 11:22 Bed in low position. Call light in reach. Side rails up X 1. Provided Education on: use cc6 of call light. 12:29 CT Stone Protocol In Process Unspecified. EDMS Administered Medications: 12:20 Drug: Ondansetron Oral Disintegrating Tablet Oral Disintegrating Tablet 4 mg PO once ph Route: PO; Outcome: 12:46 Discharge ordered by . rn 13:05 Patient left the ED. cc6 Signatures: Dispatcher [employer] EDMS Villa Byrd, MD MD rn Gutierrez, Bel, RN RN ss Shruthi Donohue RN RN ph Branden, CATY Elizondo RN ll1 Ingrid Juan Cassandra RN RN cc6 Corrections: (The following items were deleted from the chart) 12:49 12:49 Ondansetron Oral Disintegrating Tablet Oral Disintegrating Tablet 4 mg PO ph ph
--- NOTE | 2025-01-01 12:47 | EDPHYS ---
Physician Documentation [facility] Name: Jaimie Amanda Age: 64 yrs Sex: Female : 1960 Arrival Date: 01/01/2025 Time: 11:03 Bed 20 Private MD: ED Physician Villa Byrd HPI: 01/01 11:42 This 64 yrs old Female presents to ER via Ambulatory with complaints of Urinary rn Problem, Back Pain. 11:42 Patient reports lower back ache and dysuria that began this morning. Seen here recently rn for abdominal and back pain with negative CT imaging. Patient denies abdominal pain now and states which she was seen here for the other day feels much better. Now believes she has a urinary tract infection given dysuria and dark urine. No fever or chills. No nausea or vomiting.. Historical: - Allergies: 11:09 hydrochlorothiazide; ll1 11:09 Toradol; ll1 - PMHx: 11:09 Anxiety; Chronic Abdominal Pain; Hypertensive disorder; hyponatremia; Hypothyroidism; ll1 NIDDM; - Immunization history:: Adult Immunizations up to date. - Social history:: Smoking status: Patient reports the use of cigarette tobacco products, smokes one-half pack cigarettes per day. - Family history:: not pertinent. - Hospitalizations: : No recent hospitalization is reported. ROS: 11:42 Constitutional: Negative for fever, chills, and weight loss, Cardiovascular: Negative rn for chest pain, palpitations, and edema, Respiratory: Negative for shortness of breath, cough, wheezing, and pleuritic chest pain, Abdomen/GI: Negative for abdominal pain, nausea, vomiting, diarrhea, and constipation, Back: Negative for injury : Positive for increased urinary frequency and dysuria MS/Extremity: Negative for injury and deformity, Skin: Negative for injury, rash, and discoloration, Neuro: Negative for headache, weakness, numbness, tingling, and seizure, Exam: 11:42 Constitutional: This is a well developed, well nourished patient who is awake, alert, rn and in no acute distress. Ambulatory without assistance or difficulty Cardiovascular: Tachycardic, regular. No pulse deficits. Respiratory: No increased work of breathing, no retractions or nasal flaring. Abdomen/GI: Soft, non-tender Back: No spinal tenderness. No costovertebral tenderness. Full range of motion. Neuro: Awake and alert, GCS 15 Vital Signs: 11:09 BP 153 / 72; Pulse 105; Resp 18; Temp 97.7; Pulse Ox 99% ; Weight 61.23 kg; Height 5 ll1 ft. 8 in. ; Pain 9/10; 11:09 Body Mass Index 20.53 (61.23 kg, 172.72 cm) ll1 11:09 Pain Scale: Adult ll1 MDM: 11:09 Medical Screening Exam initiated rn 12:44 Differential diagnosis: UTI, urinary calculus, muscular pain, dehydration, dysuria. rn Data reviewed: vital signs, nurses notes, lab test result(s), radiologic studies, CT scan, and as a result, I will discharge patient. Independent interpretation of the following test(s) in the Emergency Department CT Scan: My interpretation is CT abdomen pelvis images negative for acute urinary calculus per my interpretation. Care significantly affected by the following chronic conditions: Anxiety, chronic pain, hypertension. Counseling: I had a detailed discussion with the patient and/or guardian regarding the historical points, exam findings, and any diagnostic results supporting the discharge/admit diagnosis, lab results, radiology results, the need for outpatient follow up, to return to the emergency department if symptoms worsen or persist or if there are any questions or concerns that arise at home. Response to treatment: the patient's symptoms have mildly improved after treatment, and as a result, I will discharge patient. Special discussion: I discussed with the patient/guardian in detail that at this point there is no indication for admission to the hospital. It is understood, however, that if the symptoms persist or worsen the patient needs to return immediately for re-evaluation. 01/01 11:31 Order name: UA Rfx Zach Cult if indicated; Complete Time: 11:53 rn 01/01 11:54 Order name: CT Stone Protocol; Complete Time: 12:43 rn Administered Medications: 12:20 Drug: Ondansetron Oral Disintegrating Tablet Oral Disintegrating Tablet 4 mg PO once ph Route: PO; Disposition Summary: 01/01/25 12:46 Discharge Ordered Notes: Location: Home rn Problem: new rn Symptoms: have improved rn Condition: Stable rn Diagnosis - Dysuria rn - UTI/ Urinary tract infection, site not specified rn Followup: rn - With: Private Physician - When: As needed - Reason: Recheck today's complaints, Re-evaluation by your physician Discharge Instructions: - Discharge Summary Sheet rn - Dysuria rn - Urinary Tract Infection, Adult rn Forms: - Medication Reconciliation Form rn - Antibiotic corn sheller - Prescription Opioid Use rn - Patient Portal Instructions rn - Leadership Thank You Letter rn Prescriptions: - Cipro 500 mg Oral Tablet - take 1 tablet ORAL route every 12 hours for 7 days; 14 tablet; Refills: 0, rn Product Selection Permitted Signatures: Dispatcher [employer] EDMS Villa Byrd MD MD rn Hall, Patricia, RN RN [facility] RN RN [facility] Corrections: (The following items were deleted from the chart) 11:55 11:55 Stone Protocol+[email or web address].[email or web address] ordered. EDVA EDMS
[2025-01-01 13:32] VITALS: BP 153/72; TEMP 97.7; O2SAT 99
== END 2025-01-01 13:05 | disposition home or self-care (01) ==
LOC: ER 11:03
DX: N39.0 Urinary tract infection, site not specified (principal); F17.210 Nicotine dependence, cigarettes, uncomplicated
CPT/HCPCS: 81001; 76377; 74176; 99282; Q0162